=== PATIENT | male | born 1950 | race American Indian/Alaskan Native ===

== ENCOUNTER 2017-11-18 12:37 | Outpatient (REF) | payer MEDICARE, SELFPAY ==
[2017-11-18 19:49] LABS: Microalb ug/mg Crea 19.6 ug/mg Cr
== END 2017-11-18 12:38 ==
LOC: NCHCN 12:37
PROVIDERS: PCP Family Medicine; Visit Provider Family Medicine
DX: E11.9 Type 2 diabetes mellitus without complications (principal)
CPT/HCPCS: 82043; 82570

== ENCOUNTER 2017-11-21 15:29 | Emergency (ER) | payer MEDICARE, SELFPAY ==
[2017-11-21 15:35] VITALS: BP 130/94; PULSE 89; RESP 16; TEMP 37.1; O2SAT 97
--- NOTE | 2017-11-21 16:18 | ED.GENADUL_ITS ---
Disposition Clinical Impression: Diarrhea, Dehydration, Headache, Hyperglycemia Disposition: HOME Condition: Stable Instructions: Dehydration (ED), Acute Diarrhea (ED), Diabetic Hyperglycemia (ED ), General Headache (ED) Additional Instructions: Drink plenty of fluids and get plenty of rest. Take your regular medications as directed. Check your sugar regularly. Follow-up with your primary care doctor within the next 3 days. Return to the emergency department with any worsening or new concerning symptoms. Medical Decision Making - Lab Data Laboratory Tests 11/21/17 11/21/17 11/21/17 16:40 16:40 16:53 WBC 7.51 RBC 5.35 Hgb 13.7 Hct 42.3 MCV 79.1 L MCH 25.6 L MCHC 32.4 RDW 15.1 H Plt Count 221 MPV 9.3 Immature Gran % 0.3 Neutrophils % 59.5 Lymphocytes % 29.0 Monocytes % 6.0 Eosinophils % 4.7 Basophils % 0.5 Absolute Neutrophils 4.47 Absolute Lymphocytes 2.18 Absolute Monocytes 0.45 Absolute Eosinophils 0.35 Absolute Basophils 0.04 Sodium 138 Potassium 4.1 Chloride 100 Carbon Dioxide 22.4 Anion Gap 15.6 H BUN 17 Creatinine 1.22 Estimated GFR/1.73 m2 59.07 Glucose 265 H Calcium 9.1 Total Bilirubin 0.7 AST 51 H ALT 58 Alkaline Phosphatase 80 Total Protein 8.2 Albumin 4.5 Urine Color Yellow Urine Clarity Clear Urine pH 5.5 Ur Specific [place] > 1.030 H Urine Protein 30 H Urine Ketones 15 H Urine Blood Negative Urine Nitrite Negative Urine Bilirubin Small H Urine Urobilinogen 0.2 Ur Leukocyte Esterase Negative Urine RBC Negative Urine WBC 3-5 Ur Epithelial Cells Rare Urine Crystals Negative Urine Bacteria Negative Urine Casts 5-10 hyaline Urine Mucus Heavy Ur Culture Indicated? No Urine Glucose Negative 11/21/17 19:06 WBC RBC Hgb Hct MCV MCH MCHC RDW Plt Count MPV Immature Gran % Neutrophils % Lymphocytes % Monocytes % Eosinophils % Basophils % Absolute Neutrophils Absolute Lymphocytes Absolute Monocytes Absolute Eosinophils Absolute Basophils Sodium 137 Potassium 4.5 Chloride 101 Carbon Dioxide 22.1 Anion Gap 13.9 H BUN 17 Creatinine 1.04 Estimated GFR/1.73 m2 >= 60.00 Glucose 247 H Calcium 8.9 Total Bilirubin AST ALT Alkaline Phosphatase Total Protein Albumin Urine Color Urine Clarity Urine pH Ur Specific [place] Urine Protein Urine Ketones Urine Blood Urine Nitrite Urine Bilirubin Urine Urobilinogen Ur Leukocyte Esterase Urine RBC Urine WBC Ur Epithelial Cells Urine Crystals Urine Bacteria Urine Casts Urine Mucus Ur Culture Indicated? Urine Glucose - EKG Data -: EKG Interpreted by Me 11/21/17 1633: 81bpm. Sinus. No acute ST elevation or depression. - Medical Decision Making 67-year-old male with history of diabetes, hypertension and hyperlipidemia with atrial fibrillation on Xarelto who presents for diarrhea and headache for the past 4 days. Multiple episodes of diarrhea daily. Headache was worse last night and better currently. Denies fever, nausea, vomiting, chest pain, shortness of breath, abdominal pain or urinary symptoms. Vitals within normal limits. No acute findings on exam. Abdomen soft and nontender. No focal deficits. Patient initially stated he wanted to leave and did not want any workup. He states he is starting to feel clammy would rather go home. The risks of and disability due to a serious pathology were explained and patient fully understand and demonstrated capacity to make decisions. He is refusing a CT of his head. I explained the risks of an acute bleed and he understands and is still refusing He initially refused any lab work but is now agreeable. I explained that as he chronically has headaches but it is more intense than usual, may be associated with dehydration due to his diarrhea. Will place an IV , small bolus IV fluids, labs, urinalysis and EKG. 1729 -- Labs reviewed. Glucose 265. Anion gap 15.6. Urinalysis with specific gravity > 1.030 and 15 ketones. There are 3-5 WBCs but no acute indication of infection patient denies any urinary symptoms. Lab work appears consistent with dehydration. Patient received 250 bolus IV fluids and feels better and states his headache is improved. Regular glucose readings between 150 and 190 so he states is high for him. Bicarb 22. Will give patient another 250 bolus of fluids and recheck a BMP. 2009 -- repeat BMP reviewed and glucose 247 and anion gap improving at 13.9. Patient states he feels good to go home. Patient again was offered a CAT scan of his head and he is declining. He appears more comfortable. He states his headache is much improved. Patient was instructed to increase his fluid intake , take his regular medications as directed and recheck his sugar. Patient was instructed to follow-up with his primary care doctor within the next week and to return here if worse. History of Present Illness - General Chief complaint: Nausea/Vomit/Diar Stated complaint: N/V/D Time Seen by Provider: 11/21/17 15:30 Source: patient Mode of arrival: ambulatory Limitations: no limitations - History of Present Illness Initial comments: Patient is a 67-year-old male with a history of diabetes, hypertension, hyperlipidemia, atrial fibrillation on Xarelto who presents for diarrhea and headache for the past few days. Patient states he has had 4 episodes of diarrhea daily which have mainly been watery and brown but sometimes loose. Patient states his headache is on the top of his head and radiates down to his bilateral neck but worse on the right side. States his headache is worse when laying down. Took tramadol and Tylenol without relief. Patient does admit to frequently having headaches 1-2 times weekly but states this is more intense than usual. He denies any recent antibiotics, travel, vomiting, abdominal pain , fever, chest pain or shortness of breath. States his headache was worse at 9/ 10 last night but is currently 4/10. - Related Data Alprazolam [Alprazolam ER] 3 mg PO DAILY PRN 05/16/13 Glipizide [Glipizide Xl] 5 mg PO DAILY 05/16/13 Lamotrigine 200 mg PO DAILY 05/16/13 MetFORMIN [Glucophage] 1,000 mg PO BID@0800,1700 05/16/13 Multivitamin [Men's Multi-Vitamin] 1 each PO DAILY 05/16/13 Nitroglycerin [Nitrostat] 0.4 mg SL PRN PRN 05/16/13 Zolpidem [Ambien] 10 mg PO HS PRN PRN 05/16/13 Lisinopril [Prinivil] 10 mg PO QAM 12/06/13 Pantoprazole Sodium [Protonix] 40 mg PO DAILY 12/06/13 Atorvastatin Calcium 80 mg PO DAILY tab-cap 11/24/16 Cholecalciferol (Vitamin D3) [Vitamin D3] 2,000 unit PO DAILY 11/24/16 Magnesium Oxide [Magnesium] 400 mg PO BID 11/24/16 Acetaminophen [Tylenol] 500 mg PO PRN PRN 12/18/16 Liraglutide [Victoza 3-Ruddy] 1.2 mg SQ DAILY 01/19/17 Rivaroxaban [Xarelto] 20 mg PO DAILY 06/14/17 Aspirin 81 mg PO DAILY tab-cap 07/23/17 Tramadol HCl 50 mg PO PRN PRN 07/24/17 Metoprolol CR [Toprol Xl] 100 mg PO DAILY #90 tab-cap 08/11/17 Metoprolol Succinate 25 mg PO DAILY #90 tab-cap 08/11/17 Vilazodone HCl [Viibryd] 10 mg PO 11/21/17 Allergies Allergy/AdvReac Type Severity Reaction Status Date / Time latex AdvReac Intermediate trouble Unverified 11/21/17 15:49 breathing/moving Review of Systems Constitutional: denies: chills, fever Eyes: denies: eye pain ENT: denies: ear pain, dental pain Respiratory: denies: cough Cardiovascular: denies: chest pain, dyspnea on exertion Gastrointestinal: diarrhea. denies: abdominal pain, nausea, vomiting Genitourinary: denies: urgency, dysuria, frequency Musculoskeletal: denies: back pain Skin: denies: rash, lesions Neurological: headache. denies: weakness, numbness Past Medical History - Past Medical History Medical history: CAD, diabetes, hypertension Surgical history: cholecystectomy, pacemaker/AICD (Placement 2 years ago [employer] at [facility], 3 cardiac stents, kidney stone resection) - Social History Smoking status: current everyday smoker Alcohol use: occasionally Drug use: none General Exam - General Limitations: no limitations General appearance: alert, in no apparent distress - Head Head exam: Present: atraumatic, normocephalic - Eye Eye exam: Present: PERRL, EOMI - ENT ENT exam: Present: normal orophraynx, mucous membranes moist, TM's normal bilaterally - Neck Neck exam: Present: normal inspection - Respiratory Respiratory exam: Present: normal lung sounds bilaterally. Absent: respiratory distress, wheezes, rales, rhonchi, stridor - Cardiovascular Cardiovascular Exam: Present: regular rate, normal rhythm. Absent: bradycardia , tachycardia - GI/Abdominal GI/Abdominal exam: Present: soft, normal bowel sounds. Absent: distended, tenderness, guarding, rebound, rigid - Neurological Exam Neurological exam: Present: alert, oriented X3 - Psychiatric Psychiatric exam: Present: normal affect - Skin Skin exam: Present: warm, dry, intact Course Vital Signs - 24 hr 11/21/17 15:35 Temperature 98.8 F Pulse 89 Respiratory 16 Rate Blood Pressure 130/94 Pulse Oximetry 97
[2017-11-21] MEDS: Normal Saline 250 ML IV ×2 (16:43→17:59)
[2017-11-21 16:47] LABS: Abs Immature Grans 0.02 k/cumm (0.0-0.09); Absolute Basophil Count 0.04 k/cumm (0.0-0.2); Absolute Eosinophil Count 0.35 k/cumm (0.0-0.7); Absolute Lymphocyte Count 2.18 k/cumm (1.2-3.4); Absolute Monocyte Count 0.45 k/cumm (0.11-0.7); Absolute Neutrophil Count 4.47 k/cumm (1.2-6.7); Basophils % 0.5; Eosinophils % 4.7; HCT 42.3 % (40.0-50.0); HGB 13.7 g/dL (13.5-17.5); Immature Grans % 0.3; Mean Corp. HGB Concentration 32.4 g/dL (32.0-36.0); Mean Corpuscular Hemoglobin 25.6 pg (27.0-33.0); Mean Corpuscular Volume 79.1 fL (80-95); Mean Platelet Volume 9.3 fL (8.0-11.0); Neutrophils % 59.5; Platelet Count 221 x1000/uL (130-400); RBC 5.35 m/cumm (4.50-6.00); RBC Distribution Width 15.1 % (11.8-14.1); White Blood Cell Count 7.51 k/cumm (4.4-10.8)
[2017-11-21 17:01] LABS: ALT 58 U/L (12-78); AST 51 U/L (15-37); Albumin 4.5 g/dL (3.4-5.0); Alkaline Phosphatase 80 U/L (46-116); Anion Gap 15.6 mmol/L (3-11); BUN 17 mg/dL (7-18); Bilirubin, Total 0.7 mg/dL (0.2-1.0); CO2 22.4 mmol/L (21.0-32.0); CREATININE 1.22 mg/dL (0.70-1.30); Calcium 9.1 mg/dL (8.5-10.1); Chloride 100 mmol/L (98-107); Estimated GFR 59.07 (mL/min/1.73m2); Glucose 265 mg/dL (70-100); Potassium 4.1 mmol/L (3.5-5.1); Sodium 138 mmol/L (136-145); Total Protein 8.2 g/dL (6.4-8.2)
[2017-11-21 17:07] LABS: Clarity Clear; Glucose Negative (Negative); Leukocyte Esterase Negative (Negative); Nitrite Negative (Negative); Specific Gravity > 1.030 (1.005-1.025); pH 5.5 (5-8)
[2017-11-21 17:08] LABS: Bacteria Negative HPF (Negative); Bilirubin Small (Negative); Blood Negative (Negative); C & S Indicated? No; Casts 5-10 Hyaline LPF (Negative); Crystals Negative HPF (Negative); Epithelial Cells Rare HPF (Negative); Ketones 15 mg/dL (Negative); Mucus Heavy (Negative); RBC Negative (0-2); Urobilinogen 0.2 EU/dL (Up TO 0.2)
[2017-11-21 18:00] VITALS: BP 117/66; PULSE 81; RESP 16; O2SAT 96
[2017-11-21 19:27] LABS: Anion Gap 13.9 mmol/L (3-11); BUN 17 mg/dL (7-18); CO2 22.1 mmol/L (21.0-32.0); CREATININE 1.04 mg/dL (0.70-1.30); Calcium 8.9 mg/dL (8.5-10.1); Chloride 101 mmol/L (98-107); Glucose 247 mg/dL (70-100); Potassium 4.5 mmol/L (3.5-5.1); Sodium 137 mmol/L (136-145)
[2017-11-21 20:39] VITALS: BP 126/85; PULSE 77; RESP 16; O2SAT 97
== END 2017-11-21 20:48 | disposition home or self-care (01) ==
PROVIDERS: Emergency Provider Physician Assistant; PCP Family Medicine
DX: R51 Headache (principal); R19.7 Diarrhea, unspecified; E86.0 Dehydration; R73.9 Hyperglycemia, unspecified; I10 Essential (primary) hypertension; E11.9 Type 2 diabetes mellitus without complications; Z79.84 Long term (current) use of oral hypoglycemic drugs
CPT/HCPCS: 93005; 96360; 99284; 99285; 36415; 80048; 80053; 81003; 81015; 85025; 93010

== ENCOUNTER 2017-12-31 00:39 | Outpatient (CLI) | payer MEDICARE, SELFPAY ==
--- NOTE | 2017-12-31 07:09 | DI.CT_ITS ---
SYMPTOMS/DIAGNOSIS: RIGHT DISTAL RADIUS FX WITH CONTINUED TRIANGULAR FIBROCARTILAGE COMPLEX PAIN, S69.81XD, ? TRIANGULAR FIBROCARTILAGE COMPLEX TEAR CT SCAN OF THE WRIST: CT arthrography of the wrist was performed. Multiple contiguous axial images were obtained. Sagittal and coronal images were identified on the Siemens workstation. There is an intrasubstance tear of the triangular fibrocartilage. The tear is in a central location and does appear to be large. 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 There does not appear to be an acute fracture or dislocation. The previously noted distal radial fracture appears to be well healed. The soft tissues are unremarkable. No focal fluid collection or soft tissue mass is appreciated. The muscles appear grossly unremarkable. IMPRESSION: 1. Triangular fibrocartilage tear following apparent distal radial fracture, suggesting a Berman class IA designation. 2. Healed distal right radial fracture.
--- NOTE | 2017-12-31 14:48 | DI.RAD_ITS ---
SYMPTOMS/DIAGNOSIS: RIGHT WRIST INJECTION FOR CT ARTHROGRAM, S69.81XD, RIGHT WRIST INJURY, PAIN RIGHT WRIST ARTHROGRAPHY: Fluoroscopy Time: 3 sec Fluoroscopy was utilized by Dr. Villegas during the performance of a right wrist arthrogram. Please refer to the procedure report for complete details.
[2017-12-31] MEDS: Omnipaque 300 MG/ML 10 ML BTL IJ (14:59)
--- NOTE | 2017-12-31 20:21 | W.PROCNOTE ---
Date of service: 12/31/17 Time of Service: 14:21 Procedure Note Date of procedure: 12/31/17 Procedure: Right Wrist Injection with Fluoroscopic Guidance Surgeon/Proceduralist/Physician: Homero Villegas Procedure Diagnosis: Suspected Right TFCC Tear Procedure Indications: Dewayne is a 67-year-old who has persistent right wrist pain after distal radius fracture. There is concern for TFCC injury. Given his pacemaker defibrillator he is not a candidate for MRI. Therefore, suggested performing a CT arthrogram of the wrist. Procedure Description: The right wrist was identified as fluoroscopy for targeting I anesthetized the skin overlying the dorsal radial aspect of the wrist with 1% lidocaine. Then it entered the radiocarpal joint between the radius and the scaphoid using a dorsal approach. Small amount of Omnipaque and bupivacaine were injected to confirm the correct positioning. A total of 7 cc of a one-to-one mixture of 0.5% ropivacaine and Omnipaque was then injected. This filled out the midcarpal, radiocarpal, and TFCC joints. Based on the arthrogram there was a TFCC tear and likely intercarpal ligament tear. He tolerated procedure well. Band-Aid was applied. He was then taken to CT scan.
== END 2017-12-31 00:59 ==
PROVIDERS: PCP Family Medicine; Visit Provider Student in an Organized Health Care Education/Training Program
DX: S63.591A Other specified sprain of right wrist, initial encounter (principal); M25.531 Pain in right wrist; S52.502D Unspecified fracture of the lower end of left radius, subsequent encounter for closed fracture with routine healing
CPT/HCPCS: 20605; 77002; 73200

== ENCOUNTER → 2018-02-04 13:30 | Outpatient (BNVA) | payer MEDICARE, SELFPAY | PROVIDERS: PCP Family Medicine; Visit Provider Internal Medicine Cardiovascular Disease | DX: I25.10 Atherosclerotic heart disease of native coronary artery without angina pectoris (principal); Z95.818 Presence of other cardiac implants and grafts; I25.5 Ischemic cardiomyopathy; I47.2 Ventricular tachycardia; Z95.0 Presence of cardiac pacemaker; I48.0 Paroxysmal atrial fibrillation; I10 Essential (primary) hypertension; E78.5 Hyperlipidemia, unspecified; E11.9 Type 2 diabetes mellitus without complications; Z79.84 Long term (current) use of oral hypoglycemic drugs | CPT/HCPCS: 99214 ==

== ENCOUNTER → 2018-04-08 14:04 | Outpatient (BNVA) | payer MEDICARE, SELFPAY | PROVIDERS: PCP Family Medicine; Visit Provider Nurse Practitioner Primary Care | DX: I25.10 Atherosclerotic heart disease of native coronary artery without angina pectoris; I48.0 Paroxysmal atrial fibrillation; I25.5 Ischemic cardiomyopathy; I10 Essential (primary) hypertension; E11.9 Type 2 diabetes mellitus without complications; Z79.84 Long term (current) use of oral hypoglycemic drugs; Z45.02 Encounter for adjustment and management of automatic implantable cardiac defibrillator | CPT/HCPCS: 93283; 99214 ==

== ENCOUNTER 2018-04-22 09:11 | Emergency (ER) | payer MEDICARE, SELFPAY ==
[2018-04-22 09:22] VITALS: BP 134/80; PULSE 81; RESP 16; TEMP 37; O2SAT 98
--- NOTE | 2018-04-22 09:31 | DI.CT_ITS ---
SYMPTOMS/DIAGNOSIS: FALL, LOSS OF CONSCIOUSNESS, RT CHEST AND NECK PAIN, ON XARELTO CT BRAIN: Noncontrast examination. Comparison 09/02/16. Age appropriate cerebral atrophy is present. No intracranial hemorrhage or skull fracture is seen. The ventricles are intact. No midline shift or mass effect is identified. The visualized paranasal sinuses are clear. The mastoid air cells are well pneumatized. No evidence of a calvarial fracture is present. IMPRESSION: No acute intracranial process. CT SCAN OF THE CERVICAL SPINE: Multiple contiguous axial images of the cervical spine were obtained. Sagittal and coronal reformatted images were evaluated on the Siemens workstation. There is straightening of the normal cervical lordosis. No acute fractures or subluxations are seen. Moderate degenerative changes are seen in the cervical spine. There is no significant prevertebral soft tissue swelling. IMPRESSION: No acute fractures or subluxations of the cervical spine. CT SCAN OF THE ABDOMEN AND PELVIS: The liver, spleen, pancreas, and adrenal glands are unremarkable. The patient is status post cholecystectomy. No biliary ductal dilatation is seen. The kidneys are unremarkable except for left renal cysts and a nonobstructing stone in the lower pole of the left kidney. The urinary bladder and reproductive organs are unremarkable. The abdominal aorta is of normal caliber. No significant abdominal or pelvic adenopathy, ascites or pneumoperitoneum is present. There is diverticulosis of the colon but no evidence of acute diverticulitis. There is a normal appendix. The bowel is otherwise unremarkable. No acute fracture is identified. IMPRESSION: No acute abdominal or pelvic injury is seen. CT SCAN OF THE CHEST: The thoracic aorta is of normal caliber. The heart size is mildly enlarged. No significant pericardial effusion is seen. Pacing wires are in place. No significant thoracic adenopathy is identified. No pleural effusion or pneumothorax is identified. Dependent atelectatic changes are seen in the lungs. No pulmonary infiltrates are seen. The tracheobronchial tree is unremarkable. No fracture is identified. IMPRESSION: No acute thoracic injury. The findings were discussed with the emergency department on the date of the examination.
--- NOTE | 2018-04-22 09:36 | ED.GENADUL_ITS ---
Discharge Plan Disposition Patient Disposition: HOME Condition: Improving Discharge Details Chief Complaint: Nk/Back Pain Clinical Impression: Chest wall contusion Primary Care Provider: Dewayne Carrington ED Provider: Jules Singleton Home Meds and New Rx's Prescriptions: Continued vortioxetine 10 mg tablet 10 mg PO DAILY RF: 0 Atorvastatin Calcium 20 MG tablet 80 mg PO DAILY RF: 0 magnesium oxide 400 MG tablet 400 mg PO BID RF: 0 cholecalciferol (vitamin D3) [Vitamin D3] 2,000 UNIT capsule 2,000 unit PO DAILY RF: 0 aspirin 81 MG tablet,chewable 81 mg PO DAILY RF: 0 metoprolol succinate 100 MG tablet extended release 24 hr 100 mg PO DAILY Qty: 90 RF: 0 Metoprolol Succinate 25 MG TAB.ER.24H 25 mg PO DAILY Qty: 90 RF: 0 multivitamin [Men's Multi-Vitamin] 1 EACH tablet 1 ea PO DAILY RF: 0 glipizide 5 MG tablet extended release 24hr 5 mg PO DAILY RF: 0 metformin [Glucophage] 1,000 MG tablet 1,000 mg PO BID@0800,1700 RF: 0 nitroglycerin [Nitrostat] 0.4 MG tablet, sublingual 0.4 mg Sublingual PRN PRNRF: 0 zolpidem 10 MG tablet 10 mg PO HS PRN PRNRF: 0 lamotrigine 100 MG tablet 200 mg PO DAILY RF: 0 alprazolam 3 MG tablet extended release 24 hr 3 mg PO DAILY PRNRF: 0 pantoprazole [Protonix] 20 MG tablet,delayed release (DR/EC) 40 mg PO DAILY RF: 0 lisinopril 10 MG tablet 10 mg PO QAM RF: 0 acetaminophen [Mapap Extra Strength] 500 MG tablet 500 mg PO PRN PRNRF: 0 Victoza 3-Ruddy 0.6 MG/0.1 ML pen injector 1.2 mg SQ DAILY RF: 0 Xarelto 20 MG tablet 20 mg PO DAILY RF: 0 tramadol 50 MG tablet 50 mg PO PRN PRNRF: 0 Discharge Instructions Instructions: Contusion in Adults (ED) Additional Instructions: Remove the Lidoderm patch in 12 hours. Return for any acute concerns. Home to rest. Tylenol as needed for discomfort. Continue all regular medications Medical Decision Making 67-year-old male with history of paroxysmal atrial fibrillation and ischemic cardiomyopathy which is anticoagulated on Xarelto. He slipped and fell on the ice 3 days ago with a positive loss of consciousness and now with right neck, chest and back pain. His exam reveals primarily tenderness in the right posterior thoracic cage. Vital signs are normal. Nonetheless, he is at high risk for both bony and visceral injury given his anticoagulation. IV access was established, screening labs obtained, patient referred for CT images. No evidence of visceral or bony injury. Consistent with posterior chest wall contusion. Discussed with him home management. He is given a Lidoderm patch for today. He will return for any acute concerns HPI General Mode of arrival: ambulatory . Date/Time Provider Initiated Documentation: 04/22/18 09:12 . Limitations to Documentation: no limitations . Information obtained by: patient . History of Present Illness 67 year old M presents to the emergency department with the chief complaint of Fall, neck, back, chest pain, described as moderate, Quality is described as aching, and is localized to the chest. Patient neck. Patient started experiencing this day(s) and it has been constant. Rest improves symptom(s), Movement worsens symptoms . Patient notes no other symptoms.; denies fever/chills, nausea/vomiting and shortness of breath. Patient did receive the following treatments prior to arrival, none HPI Narrative: Slip and fall on the ice 3 days ago. Positive loss of consciousness. Now with right neck, back, chest pain. Denies headache, weakness, numbness or tingling. Denies extremity injury. Related Data Home Medications Medication Instructions Recorded Confirmed alprazolam 3 mg PO DAILY PRN 05/16/13 04/22/18 glipizide 5 mg PO DAILY 05/16/13 04/22/18 lamotrigine 200 mg PO DAILY 05/16/13 04/22/18 metformin [Glucophage] 1,000 mg PO BID@0800,1700 05/16/13 04/22/18 multivitamin [Men's Multi-Vitamin] 1 ea PO DAILY 05/16/13 04/22/18 nitroglycerin [Nitrostat] 0.4 mg SUBLINGUAL PRN PRN 05/16/13 04/22/18 zolpidem 10 mg PO HS PRN PRN 05/16/13 04/22/18 lisinopril 10 mg PO QAM 12/06/13 04/22/18 pantoprazole [Protonix] 40 mg PO DAILY 12/06/13 04/22/18 Atorvastatin Calcium 80 mg PO DAILY tab-cap 11/24/16 04/22/18 cholecalciferol (vitamin D3) 2,000 unit PO DAILY 11/24/16 04/22/18 [Vitamin D3] magnesium oxide 400 mg PO BID 11/24/16 04/22/18 acetaminophen [Mapap Extra 500 mg PO PRN PRN 12/18/16 04/22/18 Strength] Victoza 3-Ruddy 1.2 mg SQ DAILY 01/19/17 04/22/18 Xarelto 20 mg PO DAILY 06/14/17 04/22/18 aspirin 81 mg PO DAILY tab-cap 07/23/17 04/22/18 tramadol 50 mg PO PRN PRN 07/24/17 04/22/18 metoprolol succinate 100 mg PO DAILY #90 tab-cap 08/11/17 04/22/18 vortioxetine 10 mg tablet 10 mg PO DAILY 04/08/18 04/08/18 Previous Rx's Medication Instructions Recorded metoprolol succinate 100 mg PO DAILY #90 tab-cap 08/11/17 Allergies Allergy/AdvReac Type Severity Reaction Status Date / Time latex AdvReac Intermediate trouble Unverified 04/22/18 09:25 breathing/moving General Stated Complaint: Nk/Back Pain SHAILESH: 4 Review of Systems Review of Systems 8 systems reviewed and otherwise negative [facility] Social History Smoking/Tobacco Use Status: Current every day Exam Narrative Exam Narrative: GEN: awake, alert, oriented 3. Pleasant, well groomed, interactive. HEAD: Normocephalic, atraumatic ENT: Mucous membranes moist, oropharynx unremarkable, External ear exam unremarkable EYES: PERRL, EOMI NECK: Full ROM, no ANDI, no menigismus. Minimal paraspinous tenderness. No step-off or deformity CHEST/RESP: Right posterior thoracic tenderness, no crepitus, clear to auscultation bilateral, no wheeze/rhonchi/rales CARDIOVASCULAR: RRR, no murmur, rub marjorie. 2+ Rad pulse bilateral ABDOMEN: Soft, nontender, no mass. +Bowel sounds EXT: Full ROM, no edema, no rash Neuro: Grossly normal neurologic exam, conversant, interactive. Psych: Speech fluent, thoughts congruent, affect normal Course Vital Signs Temperature 37 C 04/22/18 09:22 Pulse 81 04/22/18 09:22 Respiratory Rate 16 04/22/18 09:22 Blood Pressure 134/80 04/22/18 09:22 Pulse Oximetry 98 04/22/18 09:22 Temperature 37 C 04/22/18 09:22 Temperature Source Skin 04/22/18 09:22 Pulse 81 04/22/18 09:22 Respiratory Rate 16 04/22/18 09:22 Respiratory Effort Non-Labored 04/22/18 09:22 Blood Pressure 134/80 04/22/18 09:22 Blood Pressure Position Sitting 04/22/18 09:22 Pulse Oximetry 98 04/22/18 09:22 Oxygen Delivery Method Room Air 04/22/18 09:22 Oxygen Flow Rate 0 04/22/18 09:22 Pain Level 7 04/22/18 09:22
[2018-04-22] MEDS: Normal Saline 1,000 ML 150 ML IV (09:50)
[2018-04-22 10:03] LABS: Abs Immature Grans 0.02 k/cumm (0.0-0.09); Absolute Basophil Count 0.04 k/cumm (0.0-0.2); Absolute Eosinophil Count 0.44 k/cumm (0.0-0.7); Absolute Lymphocyte Count 2.76 k/cumm (1.2-3.4); Absolute Monocyte Count 0.45 k/cumm (0.11-0.7); Absolute Neutrophil Count 3.72 k/cumm (1.2-6.7); Basophils % 0.5; Eosinophils % 5.9; HCT 43.3 % (40.0-50.0); HGB 13.8 g/dL (13.5-17.5); Immature Grans % 0.3; Lymphocytes % 37.1; Mean Corp. HGB Concentration 31.9 g/dL (32.0-36.0); Mean Corpuscular Hemoglobin 25.1 pg (27.0-33.0); Mean Corpuscular Volume 78.9 fL (80-95); Mean Platelet Volume 9.1 fL (8.0-11.0); Monocytes % 6.1; Neutrophils % 50.1; Platelet Count 238 x1000/uL (130-400); RBC 5.49 m/cumm (4.50-6.00); RBC Distribution Width 15.5 % (11.8-14.1); White Blood Cell Count 7.43 k/cumm (4.4-10.8)
[2018-04-22 10:14] LABS: INR 1.1 (1.0-3.5); Prothrombin Time 10.5 sec (9.3-11.0)
[2018-04-22 10:19] LABS: ALT 51 U/L (12-78); AST 37 U/L (15-37); Albumin 4.4 g/dL (3.4-5.0); Alkaline Phosphatase 76 U/L (46-116); Anion Gap 12.8 mmol/L (3-11); BUN 16 mg/dL (7-18); Bilirubin, Total 0.6 mg/dL (0.2-1.0); CO2 27.2 mmol/L (21.0-32.0); CREATININE 1.16 mg/dL (0.70-1.30); Calcium 9.5 mg/dL (8.5-10.1); Chloride 101 mmol/L (98-107); Glucose 171 mg/dL (70-100); Potassium 3.8 mmol/L (3.5-5.1); Sodium 141 mmol/L (136-145); Total Protein 8.4 g/dL (6.4-8.2)
[2018-04-22] MEDS: Omnipaque 350 MG/ML 100 ML BTL IJ (10:59)
[2018-04-22 11:25] VITALS: BP 131/85; PULSE 71; RESP 16; TEMP 37; O2SAT 96
[2018-04-22] MEDS: Lidocaine 5% Patch 1 PATCH TP (11:30)
== END 2018-04-22 11:29 | disposition home or self-care (01) ==
PROVIDERS: Emergency Provider Emergency Medicine; PCP Family Medicine
DX: S20.221A Contusion of right back wall of thorax, initial encounter (principal); W00.0XXA Fall on same level due to ice and snow, initial encounter; R40.20 Unspecified coma; Z79.01 Long term (current) use of anticoagulants
CPT/HCPCS: 36415; 74177; 80053; 96360; 96361; 99285; 70450; 71260; 72125; 85025; 85610; 99284; J3490

== ENCOUNTER → 2018-08-06 12:37 | Outpatient (BNVA) | payer MEDICARE, SELFPAY | PROVIDERS: PCP Family Medicine; Visit Provider Internal Medicine Cardiovascular Disease | DX: I25.5 Ischemic cardiomyopathy (principal); I10 Essential (primary) hypertension; I25.10 Atherosclerotic heart disease of native coronary artery without angina pectoris; I47.1 Supraventricular tachycardia; I35.1 Nonrheumatic aortic (valve) insufficiency; E78.5 Hyperlipidemia, unspecified; G47.30 Sleep apnea, unspecified; I48.0 Paroxysmal atrial fibrillation; E11.9 Type 2 diabetes mellitus without complications; Z95.810 Presence of automatic (implantable) cardiac defibrillator | CPT/HCPCS: 99214 ==

== ENCOUNTER 2018-08-11 00:22 | Outpatient (CLI) | payer MEDICARE, SELFPAY ==
--- NOTE | 2018-08-11 06:47 | MERGEMPI_ITS ---
*[facility]* *[facility]* [address] [place] [address] Myocardial Perfusion Imaging - SPECT Regadenoson Date of study: 08/11/2018 *PATIENT PRESENTATION* Height: 180.3cm (71in) Blood Pressure: Weight: 92.3kg (203lb) BSA: 2.17m^2 Referring physician: Harjti Montanez Ordering physician: Chidi Paul Impressions: - Study suggests small myocardial ischemia, in the territory of the left anterior descending coronary artery. - Low risk of cardiac events. Summary: 1. Myocardial perfusion imaging: There is a small sized, moderately intense, fully reversible defect involving the apical septal wall(s). This suggests small and ischemia in the distribution of the left anterior descending coronary artery. 2. The calculated left ventricular ejection fraction after stress: 49%. LV global systolic function is mildly reduced. Diffuse left ventricular regional motion abnormalities. 3. Stress ECG conclusions: The stress ECG is negative. 4. Baseline ECG: Normal sinus rhythm with 1degrees AV block. Nonspecific ST changes. 5. Imaging information: gated. Image quality reduced due to diaphragmatic attenuation. Attenuation correction used. Recommendations: Medical management is recommended. Indication: R07.9, Appropriate Use Criteria: A (Appropriate). History: REASON FOR TESTING: PATIENT TESTING TODAY FOR FURTHER RISK STRATIFICATION. HE ALSO REPORTS SOME DULL CHEST PAIN/TIGHTNESS THAT IS ASSOCIATED WITH STRESS AND ANXIETY. HE STATES SYMPTOMS LAST LONG THE STRESS IS PRESENT. PATIENT DENIES CHEST PAIN UPON ARRIVAL TO TESTING TODAY. SIGNIFICANT PAST MEDICAL HISTORY: ISCHEMIC CARDIOMYOPATHY, AORTIC REGURGITATION, SLEEP APNEA, PAROXYSMAL ATRIAL FIBRILLATION, ICD IMPLANTED IN 2013. SMOKING STATUS: QUIT IN 2013. 35 YEAR 1 PPD HISTORY. CURRENTLY VAPES. EXERCISE ROUTINE: DAILY ADL'S. WANTS TO GET MORE ACTIVE THIS SUMMER. Risk factors: Hypertension. Dyslipidemia. Cholesterol: 96mg/dl. HDL: 42mg/dl. LDL: 38mg/dl. Triglycerides: 170mg/dl. ALLERGIES: LATEX. MEDICATIONS: ALPRAZOLAM 3 MG PRN, GLIPIZIDE 5 MG DAILY, LAMOTRIGINE 200 MG DAILY, METFORMIN 1000 MG BID, MULTIVITAMIN DAILY, NITROSTAT 0.4 MG SL PRN, ZOLPIDEM 10 MG HS PRN, LISINOPRIL 10 MG DAILY, PROTONIX 40 MG DAILY, ATORVASTATIN 80 MG DAILY, VITAMIN D 2000 UNITS DAILY, MAGNESIUM OXIDE 400 MG BID, ACETAMINOPHEN 500 MG PRN, VICTOZA 1.2 MG SQ DAILY, XARELTO 20 MG DAILY, ASPIRIN 81 MG DAILY, TRAMADOL 50 MG PRN, METOPROLOL SUCCINATE 100 MG DAILY, VORTIOXETINE 10 MG DAILY. Imaging Technique: Protocol: Stitchon. Acquisition: Gated SPECT; 1 day - rest/stress. The patient was imaged in the supine position. Attenuation correction used. Isotope administration: - Rest. Tc[99m]-sestamibi. Dose: 10.2mCi. Injection time: 09:32 AM. Injection to stress time: 00:45. - Stress. Tc[99m]-sestamibi. Dose: 31.3mCi. Injection time: 11:20 AM. 1-2 min before end of exercise Baseline ECG: FIRST DEGREE HEART BLOCK--[place]=0.26. HR 61 BPM. Normal sinus rhythm with 1degrees AV block. Nonspecific ST changes. Stress protocol: +--------+--+ + + !Stage !HR!BP (mmHg) !Comments ! +--------+--+ + + !Baseline!61!126/62 (83)! ! +--------+--+ + + !1 min !75!126/60 (82)!Inject Regadenoson.! +--------+--+ + + !3 min !73!120/60 (80)! ! +--------+--+ + + !6 min !69!120/64 (83)! ! +--------+--+ + + !1 min !--! !Inject Regadenoson.! +--------+--+ + + * Stress results: STRESS TEST ENDED IN 7 MINUTES 12 SECONDS. NORMAL HEART RATE AND BLOOD PRESSURE RESPONSE TO LEXISCAN INJECTION. RARE PVC. NO ANGINA. NO SIGNIFICANT ST SEGMENT CHANGES. The rate-pressure product for the peak heart rate and blood pressure was 9450mm Hg/min. Stress ECG: The stress ECG is negative. Myocardial perfusion: Imaging information: gated. Image quality reduced due to diaphragmatic attenuation. Left ventricular size is normal. There is a small sized, moderately intense, fully reversible defect involving the apical septal wall(s). This suggests small and ischemia in the distribution of the left anterior descending coronary artery. Ventricular Function (Wall Motion): The calculated left ventricular ejection fraction after stress: 49%. LV global systolic function is mildly reduced. Diffuse left ventricular regional motion abnormalities. Study data: Harjit Montanez MD supervised and was readily available during the procedure. This study was interpreted by [facility]. Study status: Routine. Consent: The risks, benefits, and alternatives to the procedure were explained to the patient and informed consent was obtained. Procedure: Initial setup. A baseline ECG was recorded. Surface ECG leads and manual cuff blood pressure measurements were monitored. Heart sounds: Normal. Lung sounds: Normal. Regadenoson stress test. Stress testing was performed, with regadenoson by intravenous bolus, for a total dose of 0.4mgover 10.00sec, followed by a 5ml saline flush. The infusion was terminated due to per protocol. Study completion: All catheters inserted during the procedure were removed. The patient tolerated the procedure well and was discharged from the lab. Discharge: The patient left the laboratory in stable condition. Birthdate: Patient birthdate: 1950. Sex: Gender: male. Study date: Study date: 08/11/2018. Study time: 00:01 AM. Signature Documentation: - The imaging portion of this study was interpreted by [facility] [employer] Harjit Montanez MD. - The Stress ECG portion of this study was interpreted by Harjit Montanez MD. Electronically signed by Harjit Montanez 08/11/2018 15:43
[2018-08-11] MEDS: Regadenoson 0.4 MG/5 ML SYR IVP (11:40)
== END 2018-08-11 00:42 ==
PROVIDERS: PCP Family Medicine; Visit Provider Internal Medicine Cardiovascular Disease
DX: R07.9 Chest pain, unspecified (principal); I48.0 Paroxysmal atrial fibrillation; I47.2 Ventricular tachycardia; I25.10 Atherosclerotic heart disease of native coronary artery without angina pectoris; I25.5 Ischemic cardiomyopathy; I10 Essential (primary) hypertension; E78.5 Hyperlipidemia, unspecified; Z95.810 Presence of automatic (implantable) cardiac defibrillator
CPT/HCPCS: 78452; 93016; 93018; 93017; J2785

== ENCOUNTER → 2018-09-03 10:42 | Outpatient (BNVA) | payer MEDICARE, SELFPAY | PROVIDERS: PCP Family Medicine; Visit Provider Internal Medicine Cardiovascular Disease | DX: I25.5 Ischemic cardiomyopathy (principal); I10 Essential (primary) hypertension; I25.10 Atherosclerotic heart disease of native coronary artery without angina pectoris; I47.2 Ventricular tachycardia; I48.0 Paroxysmal atrial fibrillation; I35.1 Nonrheumatic aortic (valve) insufficiency; Z95.810 Presence of automatic (implantable) cardiac defibrillator; E11.9 Type 2 diabetes mellitus without complications | CPT/HCPCS: 99214 ==

== ENCOUNTER 2018-10-13 12:33 | Outpatient (CLI) | payer MEDICARE, SELFPAY ==
[2018-10-13 13:55] LABS: HCT 38.8 % (40.0-50.0); HGB 12.3 g/dL (13.5-17.5); Mean Corp. HGB Concentration 31.7 g/dL (32.0-36.0); Mean Corpuscular Volume 78.9 fL (80-95); Mean Platelet Volume 9.4 fL (8.0-11.0); Platelet Count 232 x1000/uL (130-400); RBC 4.92 m/cumm (4.50-6.00); RBC Distribution Width 16.3 % (11.8-14.1); White Blood Cell Count 6.27 k/cumm (4.4-10.8)
[2018-10-13 14:11] LABS: BUN 12 mg/dL (7-18); CREATININE 0.93 mg/dL (0.70-1.30); Calcium 8.6 mg/dL (8.5-10.1); Chloride 105 mmol/L (98-107); Glucose 158 mg/dL (70-100); Potassium 4.2 mmol/L (3.5-5.1); Sodium 144 mmol/L (136-145); TSH (W/Ref FT4) 1.33 uIU/mL (0.358-3.74)
== END 2018-10-13 12:53 ==
PROVIDERS: PCP Family Medicine; Visit Provider Family Medicine
DX: I48.91 Unspecified atrial fibrillation (principal)
CPT/HCPCS: 36415; 80048; 85027; 84443

== ENCOUNTER → 2018-11-22 13:20 | Outpatient (BNVA) | payer MEDICARE, SELFPAY | PROVIDERS: PCP Family Medicine; Referring Provider Family Medicine; Visit Provider Physical Therapy Assistant | DX: Z12.11 Encounter for screening for malignant neoplasm of colon (principal); Z79.01 Long term (current) use of anticoagulants; E11.9 Type 2 diabetes mellitus without complications; I10 Essential (primary) hypertension ==

== ENCOUNTER 2018-12-17 08:14 | Day surgery (SDC) | payer MEDICARE, SELFPAY ==
[2018-12-17 08:28] VITALS: BP 143/73; PULSE 66; RESP 16; TEMP 36.4; O2SAT 100
--- NOTE | 2018-12-17 09:26 | W.PM.DSUDISC ---
Discharge Plan Disposition Patient Disposition: HOME Condition: Good Discharge Details Reason For Visit: EGD, Colonoscopy Attending Provider: Amanda Hartman Primary Care Provider: Dewayne Carrington Home Meds and New Rx's Prescriptions: Continued Trintellix 20 mg tablet 20 mg PO DAILY RF: 0 glipizide 5 mg tablet extended release 24hr 5 mg PO DAILY RF: 0 triamcinolone acetonide 0.1 % cream 1 applic TP BID RF: 0 Atorvastatin Calcium 20 MG tablet 80 mg PO DAILY RF: 0 cholecalciferol (vitamin D3) [Vitamin D3] 2,000 UNIT capsule 2,000 unit PO DAILY RF: 0 aspirin 81 MG tablet,chewable 81 mg PO DAILY RF: 0 metoprolol succinate 100 MG tablet extended release 24 hr 100 mg PO DAILY Qty: 90 RF: 0 multivitamin [Men's Multi-Vitamin] 1 EACH tablet 1 ea PO DAILY RF: 0 metformin [Glucophage] 1,000 MG tablet 1,000 mg PO BID@0800,1700 RF: 0 zolpidem 10 MG tablet 10 mg PO HS PRN PRNRF: 0 lamotrigine 100 MG tablet 200 mg PO DAILY RF: 0 alprazolam 3 MG tablet extended release 24 hr 3 mg PO HS RF: 0 pantoprazole [Protonix] 20 MG tablet,delayed release (DR/EC) 40 mg PO DAILY RF: 0 lisinopril 10 MG tablet 10 mg PO QAM RF: 0 acetaminophen [Mapap Extra Strength] 500 MG tablet 500 mg PO PRN PRNRF: 0 Victoza 3-Ruddy 0.6 MG/0.1 ML pen injector 1.2 mg SQ DAILY RF: 0 Xarelto 20 MG tablet 20 mg PO DAILY RF: 0 tramadol 50 MG tablet 50 mg PO PRN PRNRF: 0 magnesium oxide 400 mg magnesium Tablet 2,000 mg PO BID RF: 0 Discontinued polyethylene glycol 3350 17 gram/dose powder 238 g PO ONCE Qty: 238 RF: 0 bisacodyl [Dulcolax (bisacodyl)] 5 mg tablet,delayed release (DR/EC) 5 mg PO ONCE Qty: 4 RF: 0 Discharge Instructions Additional Instructions: Findings: Your EGD showed inflammation in the stomach. My office will contact you with biopsy results. The esophagus looked normal. Your colonoscopy showed diverticulosis. Follow up: Plan for a screening colonoscopy in 10 years or sooner if symptoms arise. Consider taking a daily stool softener such as Colace Please call if you develop: fevers >101.5 Nausea or Vomiting Abdominal pain that is not transient DAY SURGERY UNIT POST COLONOSCOPY INSTRUCTIONS 1. Because there will be medication in your system for the next 24 hours, you may feel a little sleepy. Your coordination will be affected. Therefore: a. Do not drive or operate dangerous equipment for 24 hours. b. Do not drink alcohol beverages for 24 hours (not even beer). c. Plan to go home and rest for the day. 2. Generally there are no restrictions on your activity after a day or so has gone by, but you may feel a bit fatigued for a few days. 3 After you arrive home you may have a light meal and return to a normal diet as you can tolerate it without feeling sick to your stomach. 4. After surgery, you may feel pain or discomfort. This should be only transient, but if it persists please contact your doctor. 5. If there are any questions regarding the findings of your procedure, please feel free to contact your doctor. 6. If you are unable to contact your doctor with a problem, contact the hospital at [phone]. 7. Continue all your regular medications unless directed otherwise. I understand the above instructions and have no questions. Signature of Patient or Responsible Adult Escort Date/Time Name of Responsible Adult Escort Signature of Nurse Date/Time Stand Alone Forms: DSU Post EGD Instructions, Tg Wu (DSU) Activity:: Activity as Tolerated Diet:: As Tolerated Discharge Orders Discharge Orders: Discharge Order (Routine); Ordered 12/17/18 Ordered By: Amanda Hartman DS: Diagnosis Discharge Diagnosis (1) Gastritis: Status: Acute (2) Diverticulosis: Status: Acute
[2018-12-17] MEDS: Lactated Ringers 1,000 ML 80 ML IV (09:29)
[2018-12-17] MEDS: Lidocaine 2% Viscous 15 ML CUP (09:45)
--- NOTE | 2018-12-17 09:54 | STOM_PTH ---
PATIENT: Marquez Hendrix LOC: [facility] U#:[id number] AGE/SX: 68/M ROOM: RE12/17/[address]: Amanda Hartman MD : 1950 BED: DIS: 12/17/2018 SPEC #: [id number] RECD: 12/17/18 12:48 STATUS: NORBERT REShubham #: [id number] SYLVIA: 12/17/18 09:[address]: Amanda Hartman DEPT: Surgical Specimen RECD BY: Yumiko Orozco ENTERED: 12/17/18 12:49 SP TYPE: STOMACH OTHR DR: Dewayne Carrington Tissues: 1 - STOMACH BIOPSY Procedures: GROSS AND MICRO LEVEL 4 Comments: [id number]
--- NOTE | 2018-12-17 11:28 | ENDO_ITS ---
REPORT OF OPERATIVE PROCEDURE DATE OF PROCEDURE December 17, 2018 PREOPERATIVE DIAGNOSES 1. Dysphagia. 2. Need for colon screening. POSTOPERATIVE DIAGNOSES 1. Gastritis. 2. Diverticulosis. PROCEDURES 1. EGD with gastric biopsy. 2. Colonoscopy. SURGEON Amanda Hartman M.D. ANESTHESIA General. INDICATION This is a 68-year-old man who presents for routine colon screening. The date of his last colonoscopy cannot be confirmed. He does note some chronic constipation. He also reports some difficulty swallowi ng and hoarseness. PROCEDURE DESCRIPTION He was placed in the left lateral decubitus position. Propofol was titrated to sedation. The scope wa s advanced into the esophagus under direct visualization and passed down into the stomach and the duo denum. There was no duodenitis noted. The gastric antrum revealed moderate gastritis. Biopsies were t aken from this region. Retroflexed view of the fundus and lesser curvature showed no other abnormalit ies. The GE junction was carefully inspected and showed no masses, Mascorro's, inflammation or strictu res. The air was suctioned from the stomach and the scope withdrawn with no other esophageal lesions found. Digital rectal examination revealed no abnormalities. The scope was advanced to the cecum without dif ficulty. His prep was adequate, although a small polyp could be obscured. The scope was slowly withdr awn with no abnormalities seen within the ascending, transverse or descending colon. In the sigmoid r egion, he was noted to have mild to moderate diverticular change. The rectum was normal including on retroflexed view. He tolerated the procedure well and was stable to Recovery. He can consider taking a daily stool softener. He did not have good results with fiber. He will need a followup screening coloscopy again in 10 years or sooner if symptoms indicate. CC: Dewayne Carrington M.D.
== END 2018-12-17 11:42 | disposition home or self-care (01) ==
PROVIDERS: PCP Family Medicine; Visit Provider Surgery
PROC: (CPT 43239; principal; 2018-12-17 10:00)
DX: R13.10 Dysphagia, unspecified (principal); Z12.11 Encounter for screening for malignant neoplasm of colon; K29.70 Gastritis, unspecified, without bleeding; K57.30 Diverticulosis of large intestine without perforation or abscess without bleeding; E11.9 Type 2 diabetes mellitus without complications; K21.9 Gastro-esophageal reflux disease without esophagitis; I10 Essential (primary) hypertension
CPT/HCPCS: 43239; G0121; 88305

== ENCOUNTER 2018-12-21 08:58 | Outpatient (CLI) | payer MEDICARE, SELFPAY ==
[2018-12-21 10:31] LABS: Magnesium 1.5 mg/dL (1.8-2.4)
[2018-12-21 10:50] LABS: Iron 28 ug/dL (50-175); Total Iron Binding Capacity 436 ug/dL (250-450); Transferrin Sat 6 % (20-55)
== END 2018-12-21 09:18 ==
PROVIDERS: PCP Family Medicine; Visit Provider Family Medicine
DX: I48.91 Unspecified atrial fibrillation (principal); D50.9 Iron deficiency anemia, unspecified; L89.309 Pressure ulcer of unspecified buttock, unspecified stage; E61.2 Magnesium deficiency
CPT/HCPCS: 36415; 83540; 83550; 83735

== ENCOUNTER → 2019-01-31 08:40 | Outpatient (BNVA) | payer MEDICARE, SELFPAY | PROVIDERS: PCP Family Medicine; Referring Provider Family Medicine; Visit Provider Internal Medicine Cardiovascular Disease | DX: I25.10 Atherosclerotic heart disease of native coronary artery without angina pectoris (principal); I48.91 Unspecified atrial fibrillation; I47.2 Ventricular tachycardia; I10 Essential (primary) hypertension; E11.9 Type 2 diabetes mellitus without complications; Z79.84 Long term (current) use of oral hypoglycemic drugs | CPT/HCPCS: 99205; 99215 ==

== ENCOUNTER 2019-03-03 01:39 | Outpatient (CLI) | payer MEDICARE, SELFPAY ==
--- NOTE | 2019-03-03 06:53 | DI.RAD_ITS ---
EXAM: RF JOINT INJECTION FLUORO GUID CLINICAL HISTORY: R WRIST PAIN,M25.531, RT WRIST INJECTION. TECHNIQUE: 2D and realtime digital imaging was performed. COMPARISON: No exams were available for comparison FINDINGS: Fluoroscopy was provided for guidance with the injection. Please see procedure note for details. Fluoro time: 4 seconds
[2019-03-03] MEDS: methylPREDNISolone ACETATE 40 MG/ML VIAL IM (13:50)
[2019-03-03] MEDS: Omnipaque 300 MG/ML 10 ML BTL IJ (13:50)
[2019-03-03] MEDS: Bupivacaine 0.5% Pres-Free 10 ML VIAL 2 ML IJ (13:51)
--- NOTE | 2019-03-05 07:09 | W.PROCNOTE ---
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 He has had some continued right wrist pain. As a way to diagnose pain hopefully treated, it was suggested that he have an intra-articular wrist injection. I reviewed the risk of the procedure to include continued pain, stiffness, infection. Despite these risks, he elected to proceed. Procedure Description: Pato was greeted in the fluoroscopy room. The correct side, right hand, was identified. The consent was reviewed with the patient and signed. The right hand was placed on the fluoroscopy table and prepped with ChloraPrep. Using the fluoroscopy, an entry point into the wrist between the distal ulna and the proximal row was identified. The skin and soft tissue was anesthetized with 1% lidocaine. The wrist joint was then entered and confirmed with a small amount of Omnipaque. The wrist was then injected with 2 cc of 0.5% bupivacaine and 40 mg of Depo-Medrol.
== END 2019-03-03 01:59 ==
PROVIDERS: PCP Family Medicine; Visit Provider Student in an Organized Health Care Education/Training Program
DX: M25.531 Pain in right wrist (principal); M19.031 Primary osteoarthritis, right wrist
CPT/HCPCS: 20605; 77002; J1030

== ENCOUNTER → 2019-05-05 08:37 | Outpatient (BNVA) | payer OTHER, SELFPAY | PROVIDERS: PCP Family Medicine; Referring Provider Family Medicine; Visit Provider Internal Medicine Cardiovascular Disease | DX: I25.10 Atherosclerotic heart disease of native coronary artery without angina pectoris; I48.0 Paroxysmal atrial fibrillation; I25.5 Ischemic cardiomyopathy; I10 Essential (primary) hypertension; E78.5 Hyperlipidemia, unspecified; E11.9 Type 2 diabetes mellitus without complications; Z79.84 Long term (current) use of oral hypoglycemic drugs | CPT/HCPCS: 99215 ==

== ENCOUNTER 2019-05-05 08:47 | Outpatient (CLI) | payer OTHER, SELFPAY | END 2019-05-05 09:07 | PROVIDERS: PCP Family Medicine; Visit Provider Internal Medicine Cardiovascular Disease | DX: I48.0 Paroxysmal atrial fibrillation (principal); I25.10 Atherosclerotic heart disease of native coronary artery without angina pectoris; I25.5 Ischemic cardiomyopathy; I10 Essential (primary) hypertension; E78.5 Hyperlipidemia, unspecified | CPT/HCPCS: 93005; 93010 ==

== ENCOUNTER → 2019-05-10 09:48 | Outpatient (BNVA) | payer OTHER, SELFPAY | PROVIDERS: PCP Family Medicine; Referring Provider Family Medicine; Visit Provider Psychiatry & Neurology Neurology | DX: G62.9 Polyneuropathy, unspecified (principal); R42 Dizziness and giddiness | CPT/HCPCS: 99205; 99215 ==

== ENCOUNTER 2019-05-12 02:16 | Outpatient (CLI) | payer OTHER, SELFPAY ==
[2019-05-12 10:31] LABS: HCT 40.5 % (40.0-50.0); HGB 12.7 g/dL (13.5-17.5); Mean Corp. HGB Concentration 31.4 g/dL (32.0-36.0); Mean Corpuscular Volume 82.8 fL (80-95); Mean Platelet Volume 9.2 fL (8.0-11.0); Platelet Count 233 x1000/uL (130-400); RBC 4.89 m/cumm (4.50-6.00); RBC Distribution Width 16.2 % (11.8-14.1); White Blood Cell Count 5.64 k/cumm (4.4-10.8)
[2019-05-12 11:29] LABS: ALT 62 U/L (16-63); AST 50 U/L (15-37); Albumin 4.2 g/dL (3.4-5.0); Alkaline Phosphatase 90 U/L (46-116); Anion Gap 10.8 mmol/L (3-11); BUN 12 mg/dL (7-18); Bilirubin, Total 0.6 mg/dL (0.2-1.0); CO2 29.2 mmol/L (21.0-32.0); CREATININE 0.96 mg/dL (0.70-1.30); Calcium 8.6 mg/dL (8.5-10.1); Chloride 101 mmol/L (98-107); Glucose 204 mg/dL (74-106); Magnesium 1.7 mg/dL (1.8-2.4); Potassium 4.3 mmol/L (3.5-5.1); Sodium 141 mmol/L (136-145); Total Protein 7.5 g/dL (6.4-8.2)
[2019-05-12 11:56] LABS: Vitamin B12 370 pg/mL (193-986)
[2019-05-13 14:20] LABS: Albumin 57.9 % (55.8-66.1); Total Protein 7.2 g/dL (6.3-8.2)
[2019-05-17 09:40] LABS: Methylmalonic Acid 0.15 nmol/mL (<=0.40)
== END 2019-05-12 02:36 ==
PROVIDERS: Psychiatry & Neurology Neurology; PCP Family Medicine; Visit Provider Family Medicine
DX: E61.2 Magnesium deficiency (principal); R74.8 Abnormal levels of other serum enzymes; D50.9 Iron deficiency anemia, unspecified; G62.9 Polyneuropathy, unspecified
CPT/HCPCS: 36415; 80053; 80186; 85027; 82607; 83735; 84165

== ENCOUNTER 2019-05-12 10:12 | Outpatient (CLI) | payer OTHER, SELFPAY | END 2019-05-12 10:32 | PROVIDERS: PCP Family Medicine; Visit Provider Internal Medicine Cardiovascular Disease | DX: I48.0 Paroxysmal atrial fibrillation (principal); I25.10 Atherosclerotic heart disease of native coronary artery without angina pectoris; I25.5 Ischemic cardiomyopathy; I10 Essential (primary) hypertension; E78.5 Hyperlipidemia, unspecified | CPT/HCPCS: 93005; 93010 ==

== ENCOUNTER 2019-05-20 14:31 | Outpatient (REF) | payer OTHER, SELFPAY ==
[2019-05-23 09:39] LABS: Hepatitis B Surface Ag Negative (Negative)
== END 2019-05-20 14:51 ==
LOC: NCHCN 14:31
PROVIDERS: PCP Family Medicine; Visit Provider Family Medicine
DX: R19.7 Diarrhea, unspecified (principal); R74.8 Abnormal levels of other serum enzymes
CPT/HCPCS: 87340; 86255

== ENCOUNTER 2019-06-13 11:05 | Outpatient (CLI) | payer OTHER, SELFPAY | END 2019-06-13 11:25 | PROVIDERS: PCP Family Medicine; Visit Provider Internal Medicine Cardiovascular Disease | DX: I25.5 Ischemic cardiomyopathy (principal); I25.10 Atherosclerotic heart disease of native coronary artery without angina pectoris; I47.2 Ventricular tachycardia; I48.0 Paroxysmal atrial fibrillation; I10 Essential (primary) hypertension | CPT/HCPCS: 99214; 93005; 93010 ==

== ENCOUNTER → 2019-08-09 07:31 | Outpatient (BNVA) | payer MEDICARE, SELFPAY | PROVIDERS: PCP Family Medicine; Referring Provider Family Medicine; Visit Provider Nurse Practitioner Adult Health | DX: R69 Illness, unspecified (principal) ==

== ENCOUNTER → 2019-09-21 11:19 | Outpatient (BNVA) | payer OTHER, SELFPAY | PROVIDERS: PCP Family Medicine; Referring Provider Family Medicine; Visit Provider Internal Medicine Cardiovascular Disease | DX: I47.2 Ventricular tachycardia (principal); Z45.018 Encounter for adjustment and management of other part of cardiac pacemaker; E11.9 Type 2 diabetes mellitus without complications; Z79.84 Long term (current) use of oral hypoglycemic drugs | CPT/HCPCS: 93282; 99212 ==

== ENCOUNTER → 2019-12-12 13:20 | Outpatient (BNVA) | payer OTHER, SELFPAY | PROVIDERS: PCP Family Medicine; Referring Provider Family Medicine; Visit Provider Internal Medicine Cardiovascular Disease | DX: I47.2 Ventricular tachycardia (principal); I25.10 Atherosclerotic heart disease of native coronary artery without angina pectoris; I10 Essential (primary) hypertension; I48.0 Paroxysmal atrial fibrillation; I25.5 Ischemic cardiomyopathy | CPT/HCPCS: 99214 ==

== ENCOUNTER → 2019-12-13 14:25 | Outpatient (BNVA) | payer OTHER, SELFPAY | PROVIDERS: PCP Family Medicine; Referring Provider Family Medicine; Visit Provider Nurse Practitioner Adult Health | DX: E11.42 Type 2 diabetes mellitus with diabetic polyneuropathy (principal); Z79.84 Long term (current) use of oral hypoglycemic drugs | CPT/HCPCS: 99213 ==

== ENCOUNTER 2019-12-16 03:58 | Outpatient (CLI) | payer OTHER, SELFPAY ==
--- NOTE | 2019-12-16 | DI.US_ITS ---
EXAM: US ABDOMEN INDICATION: ELEVATED LIVER ENZYMES,R74.8,CAD,DIABETES,?FATTY LIVER OR SPLENOMEGALY COMPARISON: US CAROTID ULTRASOUND from 08/25/2011 TECHNIQUE: Ultrasound abdomen performed using standard protocol FINDINGS: Abdominal ultrasound was performed according to the usual protocol. The liver is normal in size and shape. No focal hepatic lesion seen. There is mild diffuse increased hepatic echogenicity consistent with hepatic steatosis. Note is made of a prior cholecystectomy. There is no biliary dilatation.. No gallbladder wall thick ening or pericholecystic fluid collection. Pancreas appears intact as visualized. Spleen is unremarkable in appearance with no focal lesion. There is no evidence of hydronephrosis or nephrolithiasis. There are multiple left renal simple cyst s, the largest measuring about 39 millimeters in diameter at the midpole. Abdominal aorta and IVC are of normal diameter. IMPRESSION: Negative abdominal ultrasound post cholecystectomy. Incidental left renal cysts.
== END 2019-12-16 04:18 ==
PROVIDERS: PCP Family Medicine; Visit Provider Family Medicine
DX: R94.5 Abnormal results of liver function studies (principal); N28.1 Cyst of kidney, acquired
CPT/HCPCS: 76700

== ENCOUNTER 2020-05-14 15:01 | Outpatient (REF) | payer OTHER, SELFPAY ==
[2020-05-14 18:16] LABS: HGB 15.7 g/dL (13.5-17.5); MCH 29.9 pg (27.0-33.0); MCHC 33.4 % (32.0-36.0); MCV 89.5 fL (80-95); MPV 10.1 fL (8.0-11.0); Platelet Count 178 10^3/uL (130-400); RBC 5.25 10^6/uL (4.36-5.78); RDW-SD 42.2 fL; WBC 7.07 10^3/uL (4.4-10.8)
[2020-05-14 18:36] LABS: Iron 109 ug/dL (65-175); Total Iron Binding Capacity 444 ug/dL (250-450); Transferrin Sat 25 % (20-55)
[2020-05-14 18:37] LABS: ALT 78 U/L (16-63); AST 63 U/L (15-37); Albumin 4.3 g/dL (3.4-5.0); Alkaline Phosphatase 77 U/L (46-116); Anion Gap 9.6 mmol/L (3-11); BUN 20 mg/dL (7-18); Bilirubin, Total 0.7 mg/dL (0.2-1.0); CO2 26.4 mmol/L (21.0-32.0); CREATININE 1.22 mg/dL (0.70-1.30); Calcium 9.6 mg/dL (8.5-10.1); Chloride 101 mmol/L (98-107); Estimated GFR 58.73 (mL/min/1.73m2); Glucose 306 mg/dL (74-106); Magnesium 2.1 mg/dL (1.8-2.4); Sodium 137 mmol/L (136-145); Total Protein 7.6 g/dL (6.4-8.2)
== END 2020-05-14 15:21 ==
LOC: NCHCN 15:01
PROVIDERS: PCP Family Medicine; Visit Provider Family Medicine
DX: E61.2 Magnesium deficiency (principal); K76.0 Fatty (change of) liver, not elsewhere classified; D50.9 Iron deficiency anemia, unspecified
CPT/HCPCS: 80053; 85027; 83540; 83550; 83735

== ENCOUNTER → 2020-05-23 11:25 | Outpatient (BNVA) | payer OTHER, SELFPAY | PROVIDERS: PCP Family Medicine; Referring Provider Family Medicine; Visit Provider Internal Medicine Cardiovascular Disease | DX: I47.2 Ventricular tachycardia (principal); Z45.02 Encounter for adjustment and management of automatic implantable cardiac defibrillator | CPT/HCPCS: 93282; 99212 ==

== ENCOUNTER → 2020-06-12 12:56 | Outpatient (BNVA) | payer OTHER, SELFPAY | PROVIDERS: PCP Family Medicine; Referring Provider Family Medicine; Visit Provider Internal Medicine Cardiovascular Disease | DX: I47.2 Ventricular tachycardia (principal); I25.10 Atherosclerotic heart disease of native coronary artery without angina pectoris; I48.91 Unspecified atrial fibrillation; I10 Essential (primary) hypertension; Z95.810 Presence of automatic (implantable) cardiac defibrillator | CPT/HCPCS: 99214; 99213 ==

== ENCOUNTER → 2020-07-09 07:44 | Outpatient (BNVA) | payer OTHER, SELFPAY | PROVIDERS: PCP Family Medicine; Referring Provider Family Medicine; Visit Provider Nurse Practitioner Adult Health | DX: E11.40 Type 2 diabetes mellitus with diabetic neuropathy, unspecified (principal); M20.40 Other hammer toe(s) (acquired), unspecified foot | CPT/HCPCS: 99213 ==

== ENCOUNTER 2020-11-27 21:54 | Inpatient (IN) | payer OTHER, SELFPAY ==
[2020-11-27] VITALS (41 sets, daily range): BP systolic 73–169; BP diastolic 48–114; PULSE 67–152; RESP 9–21; TEMP 36.1; O2SAT 89–98
--- NOTE | 2020-11-27 21:45 | RT.EKG_ITS ---
APPROVED REPORT Exam: Resting ECG Reason for Exam: chest pain Patient Location: E HR:150 bpm ECG Measurements Heart Rate 150 AXIS MN 98 P -45 QRSd 178 QRS -72 QT 376 T 111 QTc 595 Conclusion Extreme tachycardia with wide complex, no further rhythm analysis attempted
--- NOTE | 2020-11-27 22:00 | DI.RAD_ITS ---
Exam(s) XR PORTABLE CHEST AP EXAM: XR PORTABLE CHEST AP CLINICAL HISTORY: shortness of breath TECHNIQUE: 2D digital imaging was performed. COMPARISON: CR CHEST 2 VIEWS PA,LAT from 01/19/2017 FINDINGS: LUNGS: Clear. No pleural abnormality seen. HEART: Normal. Pacemaker and coronary artery stent. Overlying pad. MEDIASTINUM: Normal. BONES: Unremarkable. IMPRESSION: No acute pulmonary findings. DATA REPOSITORY: RADIATION DOSE DELIVERED:
[2020-11-27 22:02] LABS: HCT 45.7 % (40.0-50.0); HGB 15.1 g/dL (13.5-17.5); Lymphocytes % 24.7; MCH 29.1 pg (27.0-33.0); MCV 88.1 fL (80-95); MPV 9.3 fL (8.0-11.0); Monocytes % 7.4; Neutrophils % 63.9; Platelet Count 211 10^3/uL (130-400); RBC 5.19 10^6/uL (4.36-5.78); RDW 13.3 % (11.8-14.1); RDW-SD 43.1 fL; WBC 11.63 10^3/uL (4.4-10.8)
--- NOTE | 2020-11-27 22:02 | W.ED.GENAD ---
Discharge Plan Disposition Patient Disposition: [facility] INPATIENT Condition: Stable Discharge Details Chief Complaint: Chest Pain Clinical Impression: Ventricular tachycardia Primary Care Provider: Dewayne Carrington ED Provider: Yaron Fitzpatrick [place] Meds and New Rx's Prescriptions: No Action nitroglycerin 0.4 mg tablet, sublingual 0.4 mg SL Q5M PRNRF: 0 glipizide 5 mg tablet extended release 24hr 10 mg PO DAILY RF: 0 Viibryd 20 mg tablet 40 mg PO HS RF: 0 clonazepam 1 mg tablet 1 mg PO BID RF: 0 cyanocobalamin (vitamin B-12) [Vitamin B-12] 1,000 mcg tablet 1,000 mcg PO DAILY RF: 0 Atorvastatin Calcium 20 MG tablet 80 mg PO HS RF: 0 aspirin 81 MG tablet,chewable 81 mg PO DAILY RF: 0 cholecalciferol (vitamin D3) [Vitamin D3] 50 mcg (2,000 unit) capsule 2,000 unit PO DAILY RF: 0 Xarelto 20 mg tablet 20 mg PO DAILY Qty: 90 RF: 3 metoprolol succinate 100 mg tablet extended release 24 hr 150 mg PO BID Qty: 90 RF: 6 multivitamin [Men's Multi-Vitamin] 1 EACH tablet 1 ea PO DAILY RF: 0 metformin [Glucophage] 1,000 MG tablet 1,000 mg PO BID@0800,1700 RF: 0 zolpidem 10 MG tablet 10 mg PO HS PRN PRNRF: 0 lamotrigine 100 mg tablet 250 mg PO DAILY RF: 0 pantoprazole [Protonix] 20 MG tablet,delayed release (DR/EC) 40 mg PO HS RF: 0 lisinopril 10 MG tablet 10 mg PO QAM RF: 0 acetaminophen [Mapap Extra Strength] 500 MG tablet 500 mg PO PRN PRNRF: 0 Victoza 3-Ruddy 0.6 MG/0.1 ML pen injector 1.8 mg SQ HS RF: 0 tramadol 50 MG tablet 50 mg PO PRN PRNRF: 0 magnesium oxide 400 mg magnesium tablet 800 mg PO TID RF: 0 Medical Decision Making 70 yo male with hx of afib on xarelto, vtach with prior icd placement 5 years ago per patient, peripheral neuropathy, comes in with ems with shortness of breath. He walks 4 miles every day and was on his walk this evening feeling well then suddenly had shortness of breath and general feeling of lightheadedness, no chest pain or pressure. He drove home and still felt the same so called ems who noted he was in afib so brought him here and administered 150mg amio. He arrives speaking and in stable vital signs, still denies chest pain and on monitor and ekg appears to be in vtach with rates ranging from 160-180. He denies fevers or cough. He has not felt his icd go off. Given the rhythm and that he is stable currently will continue amio drip, evaluate for electrolyte abnormalities and also cardiac ischemia and consult cardiology [place] [facility]. shortly after initial assessment and prior to any consults being placed he had several repeat BP's in the 70's systolic, remains alert feeling lightheaded so he had emergency synchronized cardioversion with 75mcg fentanyl and 9mg of etomidate given for sedation and had 120J synchronized cardioversion done with successful conversion to sinus rhythm. PT awake and talking and asymptomatic now, stable vitals with normal BP. Labs unremarkable other than mag of 1.6 and mild jenn. Awaiting call from [facility] Pt remains asymptomatic and stable in sinus rhythm. Spoke with plant maintenance engineer Dr. Torres who agreed with treatment provided here and recommended continuing amiodarone drip. They felt his icd likely did not go off because his set rate is above what his vtach rate was and this will need to be changed. They unfortunately can't take him in transfer tonight but should be able to take him tomorrow and recommended continuing the drip and tele monitoring. I discussed with pt and he would prefer to go to [facility] where he gets his care rather than trying [facility]. I spoke with hospitalist who accepts for admission until [facility] can accept him in transfer Differential Diagnosis Differential Diagnosis: ventricular tachycardia, electrolyte abnormality, acs Medical Records Medical records reviewed: Yes I reviewed the patient's medical records. Lab Data Lab results reviewed: Yes I reviewed the patient's lab results. ECG Data Attestation: I personally reviewed and interpreted this ECG (s) as follows: Prior ECG tracings: not available for review Interpretation: 1st ekg ventricular tachycardia, rate of 150 qtc 590 2nd ekg shows sinus rhythm, rate of 85, pr [address] wave ischemic findings HPI General Mode of arrival: EMS. Date/Time Provider Initiated Documentation: 11/27/20 21:59. Limitations to Documentation: no limitations. Information obtained by: patient. History of Present Illness 70 year old M presents to the emergency department with the chief complaint of shortness of breath, described as moderate, Patient reports no radiation. Patient started experiencing this hour(s) (3) and it has been constant. No relieving factors improve symptom(s), No exacerbating factors reported . Related Data Home Medications Medication Instructions Recorded Confirmed metformin [Glucophage] 1,000 mg PO BID@0800,1700 05/16/13 11/27/20 multivitamin [Men's Multi-Vitamin] 1 ea PO DAILY 05/16/13 11/27/20 zolpidem 10 mg PO HS PRN PRN 05/16/13 11/27/20 lisinopril 10 mg PO QAM 12/06/13 11/27/20 pantoprazole [Protonix] 40 mg PO HS 12/06/13 11/27/20 Atorvastatin Calcium 80 mg PO HS tab-cap 11/24/16 11/27/20 acetaminophen [Mapap Extra 500 mg PO PRN PRN 12/18/16 11/27/20 Strength] Victoza 3-Ruddy 1.8 mg SQ HS 01/19/17 11/27/20 aspirin 81 mg PO DAILY tab-cap 07/23/17 11/27/20 tramadol 50 mg PO PRN PRN 07/24/17 11/27/20 nitroglycerin 0.4 mg sublingual 0.4 mg SL Q5M PRN 01/31/19 11/27/20 tablet cholecalciferol (vitamin D3) 50 2,000 unit PO DAILY 06/13/19 11/27/20 mcg (2,000 unit) capsule rivaroxaban 20 mg tablet 20 mg PO DAILY #90 tab 09/06/19 11/27/20 clonazepam 1 mg tablet 1 mg PO BID 09/21/19 11/27/20 vilazodone 20 mg tablet 40 mg PO HS tab 09/21/19 11/27/20 cyanocobalamin (vitamin B-12) 1,000 mcg PO DAILY 12/13/19 11/27/20 1,000 mcg tablet glipizide 5 mg tablet, extended 10 mg PO DAILY tab 07/09/20 11/27/20 release 24 hr lamotrigine 100 mg tablet 250 mg PO DAILY tab 07/09/20 11/27/20 magnesium oxide 800 mg PO TID tab 07/09/20 11/27/20 metoprolol succinate 100 mg 150 mg PO BID #90 tab 09/25/20 11/27/20 tablet,extended release 24 hr Previous Rx's Medication Instructions Recorded rivaroxaban 20 mg tablet 20 mg PO DAILY #90 tab 09/06/19 metoprolol succinate 100 mg 150 mg PO BID #90 tab 09/25/20 tablet,extended release 24 hr Allergies Allergy/AdvReac Type Severity Reaction Status Date / Time adhesive tape Allergy Unknown rash Verified 11/27/20 22:51 latex AdvReac Intermediate trouble Verified 11/27/20 22:51 breathing/moving General SHAILESH: 4 Review of Systems All systems reviewed & are unremarkable except as noted in HPI and below Constitutional Constitutional: Denies chills and Denies fever(s) Cardiovascular Cardiovascular: Denies chest pain Respiratory Respiratory: Denies cough Gastrointestinal Gastrointestinal: Denies abdominal pain, Denies nausea and Denies vomiting Musculoskeletal Musculoskeletal: Denies joint swelling Psychiatric Psychiatric: Denies depression [facility] Medical History Anal fissure Atrial fibrillation CAD (coronary artery disease) Chronic pain Clinical depression Diabetes Esophageal ring GERD (gastroesophageal reflux disease) Hammer toe Hiatal hernia Hyperlipidemia pt. states its a fissure near his coccyx Iron deficiency anemia Ischemic cardiomyopathy Lumbar degenerative disc disease Obstructive sleep apnea Pacemaker Peripheral neuropathy Pressure ulcer, buttock Ventricular tachyarrhythmia s/p ICD 2013 Surgical History History of cholecystectomy History of colonoscopy 12/17/18 History of coronary artery stent placement History of esophagogastroduodenoscopy (EGD) 12/17/18 History of permanent cardiac pacemaker placement with defib Family History Father Heart disease Mother Heart disease Brother Alcoholism Social History Smoking/Tobacco Use Status: Current every day Tobacco Type: smokeless tobacco Counseling given: patient declined Smoking risk assessment performed?: Yes Alcohol Intake: former Drug use: Never Substance use type: does not use Details: Pt states he vapes daily current occupation: Retired What type of physical activity do you participate in: bicycling Frequency: 3-4 times per week Do you feel safe at home: Yes Do you feel safe in your relationship?: Yes Exam Const General: no acute distress Orientation: alert HENMT Head: normal to inspection Ears: external ears normal General nose exam: external nose normal Mouth: moist mucous membranes Eyes General: appearance normal, both eyes and all related structures Neck Neck: normal visual inspection Resp Effort & Inspection: normal respiratory effort and able to speak in complete sentences Cardio Rate: tachycardic Skin General skin exam: no rashes or lesions noted Neuro General: patient alert and patient oriented x3 Extrem General: normal to inspection Psych Mental Status: mental status grossly normal Procedures Procedural Sedation Indication: other (synchronized cardioversion) ASA Class: II Preparation: child monitor applied and pulse oximeter Fentanyl: IV Fentanyl dose (mcg): 75 IV Etomidate dose (mg): 9 Patient Tolerated Procedure: well Complications: none Other Description: emergency cardioversion done for hypotension in setting of vtach and gave verbal permission, he had 120J synchronized cardioversion performed with successful conversion to sinus rhythm Critical Care Time Critical Care Time Critical Care Time: Yes Total Critical Care Time: 90 (minutes) Attestation: time spent reviewing labs, frequent reassesments and monitoring in a patient with ventricular tachycardia with potential to deteriorate at any time
[2020-11-27 22:03] LABS: Abs Immature Grans 0.07 10^3/uL (0.0-0.06); Absolute Basophil Count 0.06 10^3/uL (0.0-0.2); Absolute Eosinophil Count 0.34 10^3/uL (0.0-0.7); Absolute Lymphocyte Count 2.87 10^3/uL (1.2-3.4); Absolute Monocyte Count 0.86 10^3/uL (0.1-0.8); Absolute Neutrophil Count 7.43 10^3/uL (1.2-6.7); Basophils % 0.5; Eosinophils % 2.9; Immature Grans % 0.6; Nucleated RBC 0 %
--- NOTE | 2020-11-27 22:15 | RT.EKG_ITS ---
APPROVED REPORT Exam: Resting ECG Reason for Exam: chest pain Patient Location: E HR:85 bpm ECG Measurements Heart Rate 85 AXIS AL 68 P -72 QRSd 87 QRS 204 QT 257 T 204 QTc 307 Conclusion Uncertain rhythm: review...rhythm measurements incomplete Anterolateral infarct, age indeterminate...Q >35mS, flat/neg T, V3-V6,I,aVL
[2020-11-27 22:17] LABS: ALT 59 U/L (16-63); AST 48 U/L (15-37); Albumin 4.1 g/dL (3.4-5.0); Alkaline Phosphatase 73 U/L (46-116); Anion Gap 12.1 mmol/L (3-11); BUN 17 mg/dL (7-18); Bilirubin, Total 0.7 mg/dL (0.2-1.0); CO2 20.9 mmol/L (21.0-32.0); CREATININE 1.4 mg/dL (0.70-1.30); Chloride 104 mmol/L (98-107); Estimated GFR 49.96 (mL/min/1.73m2); Glucose 229 mg/dL (74-106); INR 1.3 (0.9-1.1); Magnesium 1.6 mg/dL (1.8-2.4); PTT Activated 30.5 sec (21.0-27.5); Potassium 5.1 mmol/L (3.5-5.1); Prothrombin Time 13.3 sec (9.3-11.0); Sodium 137 mmol/L (136-145); Total Protein 7.5 g/dL (6.4-8.2)
[2020-11-27 22:18] LABS: Troponin I < 0.05 ng/mL (<0.06)
[2020-11-27] MEDS: fentaNYL 100 MCG/2 ML VIAL 75 MCG IVP (22:18)
[2020-11-27] MEDS: Etomidate 20 MG/10 ML VIAL 9 MG IVP (22:21)
[2020-11-27 22:39] LABS: Source Nasal/Nares
--- NOTE | 2020-11-27 22:41 | NUR.NOTE ---
Radiology at bedsideNursing Note:
[2020-11-27] MEDS: MAGNESIUM SULFATE 2 GM/50 ML BAG IVPB (22:55)
--- NOTE | 2020-11-27 23:05 | DI.VRAD_ITS ---
PROCEDURE INFORMATION: Exam: XR Chest Exam date and time: 11/27/2020 10:02 PM Age: 70 years old Clinical indication: Shortness of breath; Prior surgery; Surgery date: 6+ months; Surgery type: Pacemaker; Patient HX: SOB TECHNIQUE: Imaging protocol: XR of the chest. Views: 1 view. COMPARISON: CT Abdomen^CAP WITH (Adult) 04/22/2018 10:36 AM FINDINGS: Tubes, catheters and devices: Left approach pacer again noted. Leads project over the patient. There is a device projecting over the right heart. Lungs: Unremarkable. No consolidation. Pleural spaces: Unremarkable. No pleural effusion. No pneumothorax. Heart/Mediastinum: Unremarkable. No cardiomegaly. Bones/joints: Unremarkable. Soft tissues: Pad projects over the patient. IMPRESSION: No acute cardiopulmonary disease Dictated and Authenticated by: Abner Richardson MD. Ordering:DAVION Marrufo MD
[2020-11-27 23:30] LABS: COVID-19 PCR Negative (Negative)
--- NOTE | 2020-11-27 23:57 | W.PM.HP.N ---
Date of service: 11/27/20 Time of Service: 23:57 Assessment and Plan Assessment and plan (1) Ventricular tachycardia: Start date: 11/27/20 Status: Acute Assessment and plan: This is a 70-year-old gentleman with a history of sustained ventricular tachycardia status post AICD in 2013 presenting with failure of his AICD to cardiovert in the field probably being set at too high of a rate to capture his slower rate of sustained V. tach upon presentation to the ED. He did require cardioversion which he tolerated well. He is on amiodarone infusion and doing well with metoprolol being decreased in dosing with short acting formulation while on amiodarone. He is pending transfer to tertiary care center to evaluate his AICD settings. He will most likely be converted to oral amiodarone. Adjustment of his other medications will need to be considered. Cardiology will follow up. Patient does have mild HERMES and hypomagnesemia with IV hydration and magnesium repletion following up on labs in the morning. (2) Atrial fibrillation: Status: Chronic Assessment and plan: Patient does also have paroxysmal atrial fibrillation and is on Xarelto which will be continued the same. Continue beta-blockade as needed with amiodarone initiated. Qualifiers: Atrial fibrillation type: paroxysmal Qualified Code(s): I48.0 - Paroxysmal atrial fibrillation (3) Hypertension: Status: Chronic Assessment and plan: Stable presently with hypotension as a risk with additional medical therapy. Adjust chronic medical therapy accordingly. Qualifiers: Hypertension type: primary hypertension Qualified Code(s): I10 - Essential (primary) hypertension (4) Diabetes: Status: Chronic Assessment and plan: Patient had hyperglycemia upon admission but is on no treatment for diabetes with this being an old diagnosis. Monitor glucometers with coverage while hospitalized. Qualifiers: Diabetes mellitus complication status: without complication Diabetes mellitus residential insulin use: without residential use Diabetes mellitus type: type 2 Qualified Code(s): E11.9 - Type 2 diabetes mellitus without complications (5) CAD (coronary artery disease): Status: Chronic Assessment and plan: Patient has no findings of significant ischemia and troponins will be trended. He is a full code. Qualifiers: Associated angina: without angina Coronary Disease-Associated Artery/Lesion type: [place] artery [place] vs. transplanted heart: [place] heart Qualified Code(s): I25.10 - Atherosclerotic heart disease of [place] coronary artery without angina pectoris History of Present Illness History of Present Illness Chief Complaint: Generalized weakness with dyspnea Narrative: This is a 70-year-old male patient who has chronic atrial fibrillation on Xarelto with placement of an AICD in 2013 for ventricular tachycardia presenting to the ED with generalized weakness in his arms and shortness of breath while [place] [address] [place] He does walk nightly. He lives alone having been twice with his last in 2009. 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 He was previously an avid biker in [place] but locally has been walking nightly for exercise. This evening when he went for a walk he felt fatigue in both arms and dyspnea which did not improve after returning home with patient barely making it back to his apartment. When he was continuing to feel ill he called EMS who observed atrial fibrillation with rapid ventricular response and administered 150 mg of amiodarone in the field. In the ED he was found to have ventricular tachycardia which was sustained with a rate of 160-180 requiring synchronized cardioversion because of hypotension with a systolic blood pressure in the 70. Patient stabilized with sinus rhythm and stabilize his blood pressure being initiated on amiodarone infusion with bolus and then continuous infusion. At the time I saw the patient he was comfortable and sleeping and remained in sinus rhythm with bradycardia. His blood pressure was stable. He denied palpitations or chest pain during his event but did have arm heaviness bilaterally. His initial evaluation was otherwise negative for acute cardiac ischemia. The patient was [place] in [place] [facility] [place] and referred not to go to [facility]. He was admitted to the ICU for continued amiodarone infusion and awaiting bed availability at tertiary care center. Review of Systems Narrative: 13 point review of systems otherwise unrevealing or stable. [facility] Medical History Anal fissure Atrial fibrillation CAD (coronary artery disease) Chronic pain Clinical depression Diabetes Esophageal ring GERD (gastroesophageal reflux disease) Hammer toe Hiatal hernia Hyperlipidemia pt. states its a fissure near his coccyx Iron deficiency anemia Ischemic cardiomyopathy Lumbar degenerative disc disease Obstructive sleep apnea Pacemaker Peripheral neuropathy Pressure ulcer, buttock Ventricular tachyarrhythmia s/p ICD 2013 Surgical History History of cholecystectomy History of colonoscopy 12/17/18 History of coronary artery stent placement History of esophagogastroduodenoscopy (EGD) 12/17/18 History of permanent cardiac pacemaker placement with defib Family History Father Heart disease Mother Heart disease Brother Alcoholism Social History Smoking/Tobacco Use Status: Current every day Tobacco Type: smokeless tobacco Counseling given: patient declined Smoking risk assessment performed?: Yes Alcohol Intake: former Drug use: Never Substance use type: does not use Details: Pt states he vapes daily current occupation: Retired What type of physical activity do you participate in: bicycling Frequency: 3-4 times per week Do you feel safe at home: Yes Do you feel safe in your relationship?: Yes Meds Allergies and Home Medications Allergies Allergy/AdvReac Type Severity Reaction Status Date / Time adhesive tape Allergy Unknown rash Verified 11/27/20 22:51 latex AdvReac Intermediate trouble Verified 11/27/20 22:51 breathing/moving Home Medications Medication Instructions Recorded Confirmed Type metformin [Glucophage] 1,000 mg PO BID@0800,1700 05/16/13 11/27/20 History multivitamin [Men's Multi-Vitamin] 1 ea PO DAILY 05/16/13 11/27/20 History zolpidem 10 mg PO HS PRN PRN 05/16/13 11/27/20 History lisinopril 10 mg PO QAM 12/06/13 11/27/20 History pantoprazole [Protonix] 40 mg PO HS 12/06/13 11/27/20 History Atorvastatin Calcium 80 mg PO HS tab-cap 11/24/16 11/27/20 History acetaminophen [Mapap Extra 500 mg PO PRN PRN 12/18/16 11/27/20 History Strength] Victoza 3-Ruddy 1.8 mg SQ HS 01/19/17 11/27/20 History aspirin 81 mg PO DAILY tab-cap 07/23/17 11/27/20 History tramadol 50 mg PO PRN PRN 07/24/17 11/27/20 History nitroglycerin 0.4 mg sublingual 0.4 mg SL Q5M PRN 01/31/19 11/27/20 History tablet cholecalciferol (vitamin D3) 50 2,000 unit PO DAILY 06/13/19 11/27/20 History mcg (2,000 unit) capsule rivaroxaban 20 mg tablet 20 mg PO DAILY #90 tab 09/06/19 11/27/20 Rx clonazepam 1 mg tablet 1 mg PO BID 09/21/19 11/27/20 History vilazodone 20 mg tablet 40 mg PO HS tab 09/21/19 11/27/20 History cyanocobalamin (vitamin B-12) 1,000 mcg PO DAILY 12/13/19 11/27/20 History 1,000 mcg tablet glipizide 5 mg tablet, extended 10 mg PO DAILY tab 07/09/20 11/27/20 History release 24 hr lamotrigine 100 mg tablet 250 mg PO DAILY tab 07/09/20 11/27/20 History magnesium oxide 800 mg PO TID tab 07/09/20 11/27/20 History metoprolol succinate 100 mg 150 mg PO BID #90 tab 09/25/20 11/27/20 Rx tablet,extended release 24 hr Exam Narrative Exam Narrative: General: Patient appears appropriate for age, in no acute distress and alert and oriented x3. He is a medium build and thin. HEENT: Normocephalic, thinning long pike hair, eyes with pupils equal and reactive to light symmetrically, extraocular movement intact and sclera anicteric. Neck: Supple without JVD or auscultated bruits. Back: Normal posture without CVA tenderness Lungs: Clear to auscultation and percussion. Heart: Regular rhythm with bradycardic rate. No appreciated murmurs or gallops. Abdomen: Normal contour, soft and nontender to palpation with no palpable hepatosplenomegaly. Bowel sounds positive in all quadrants. Genitalia/rectal: Exam deferred. Extremities: Without clubbing, cyanosis or pitting edema. Peripheral pulses intact. Skin: Pale, warm and dry. Neuro: Cranial nerves II through XII grossly intact, no focalizing motor deficits. No tremor. Psych: Normal affect and mood, no abnormal thought processes. Remote and recent memory intact. Results Imaging Imaging Studies: Exam: XR Chest Exam date and time: 11/27/2020 10:02 PM Age: 70 years old Clinical indication: Shortness of breath; Prior surgery; Surgery date: 6+ months; Surgery type: Pacemaker; Patient HX: SOB TECHNIQUE: Imaging protocol: XR of the chest. Views: 1 view. COMPARISON: CT Abdomen^CAP WITH (Adult) 04/22/2018 10:36 AM FINDINGS: Tubes, catheters and devices: Left approach pacer again noted. Leads project over the patient. There is a device projecting over the right heart. Lungs: Unremarkable. No consolidation. Pleural spaces: Unremarkable. No pleural effusion. No pneumothorax. Heart/Mediastinum: Unremarkable. No cardiomegaly. Bones/joints: Unremarkable. Soft tissues: Pad projects over the patient. IMPRESSION: No acute cardiopulmonary disease Labs Result diagrams: 11/28/20 05:10 11/28/20 05:10 Labs: Laboratory Results - last 24 hr 11/27/20 11/27/20 11/27/20 21:55 21:55 21:55 WBC 11.63 H RBC 5.19 Hgb 15.1 Hct 45.7 MCV 88.1 MCH 29.1 MCHC 33.0 RDW 13.3 Plt Count 211 MPV 9.3 Immature Gran % 0.6 Neutrophils % 63.9 Lymphocytes % 24.7 Monocytes % 7.4 Eosinophils % 2.9 Basophils % 0.5 Nucleated RBC % 0 Absolute Neutrophils 7.43 H Absolute Lymphocytes 2.87 Absolute Monocytes 0.86 H Absolute Eosinophils 0.34 Absolute Basophils 0.06 PT 13.3 H INR 1.3 H APTT 30.5 H Sodium 137 Potassium 5.1 Chloride 104 Carbon Dioxide 20.9 L Anion Gap 12.1 H BUN 17 Creatinine 1.4 H Estimated GFR/1.73 m2 49.96 Glucose 229 H Calcium 9.0 Magnesium 1.6 L Total Bilirubin 0.7 AST 48 H ALT 59 Alkaline Phosphatase 73 Troponin I < 0.05 Total Protein 7.5 Albumin 4.1 COVID-19 Source SARS-CoV-2 (PCR) 11/27/20 22:30 WBC RBC Hgb Hct MCV MCH MCHC RDW Plt Count MPV Immature Gran % Neutrophils % Lymphocytes % Monocytes % Eosinophils % Basophils % Nucleated RBC % Absolute Neutrophils Absolute Lymphocytes Absolute Monocytes Absolute Eosinophils Absolute Basophils PT INR APTT Sodium Potassium Chloride Carbon Dioxide Anion Gap BUN Creatinine Estimated GFR/1.73 m2 Glucose Calcium Magnesium Total Bilirubin AST ALT Alkaline Phosphatase Troponin I Total Protein Albumin COVID-19 Source Nasal/Nares SARS-CoV-2 (PCR) Negative Last Vital Signs Temp 36.1 C L 11/27/20 21:52 Pulse 77 11/27/20 23:21 Resp 14 11/27/20 23:21 BP 128/65 11/27/20 23:21 Pulse Ox 96 11/27/20 23:21
[2020-11-28] VITALS (73 sets, daily range): BP systolic 105–152; BP diastolic 50–84; PULSE 49–64; RESP 10–24; TEMP 36.1–36.7; O2SAT 92–99
[2020-11-28 01:50] LABS: Troponin I < 0.05 ng/mL (<0.06)
[2020-11-28 01:52] LABS: NT-proBNP 707 pg/mL (<300)
[2020-11-28] MEDS: Mylanta Suspension 30 ML CUP PO (02:18)
[2020-11-28] MEDS: Normal Saline Flush 10 ML SYR IVP ×2 (02:18→14:04)
--- NOTE | 2020-11-28 02:23 | NUR.NOTE ---
0100-Report called to NAHUN [place], ICUNursing Note:
--- NOTE | 2020-11-28 02:24 | NUR.NOTE ---
0120-To room 220 with NAHUN [place], ICUNursing Note:
[2020-11-28] MEDS: Zolpidem 10 MG TAB PO (02:25)
[2020-11-28 03:59] LABS: Troponin I < 0.05 ng/mL (<0.06)
[2020-11-28 05:43] LABS: Troponin I < 0.05 ng/mL (<0.06)
--- NOTE | 2020-11-28 08:12 | W.PM.PROGNOT ---
Date of Service Date of service: 11/28/20 Time of Service: 11:30 Assessment and Plan Assessment and plan (1) Ventricular tachycardia: Status: Resolved Assessment and plan: [place] [facility] [place] re[place]med to lower ATP threshold. Continue amidoarone gtt until discharge. At that point, convert to amiodarone 400 mg PO BID x 10 days and then start 400 mg daily. Will send rx today. (2) Dizziness: Status: Acute Assessment and plan: ?side effect of amiodarone. Will c/s PT to ensure the patient is safe to ambulate. This does not appear to be BPPV. (3) Atrial fibrillation: Status: Chronic Assessment and plan: AICD is programmed to differentiate between Afib and Vtach, per [employer] rep. Qualifiers: Atrial fibrillation type: paroxysmal Qualified Code(s): I48.0 - Paroxysmal atrial fibrillation (4) Obstructive sleep apnea: Status: Chronic Assessment and plan: Patient is supposed to be using a CPAP at night, but evidently has not been able to reorder his parts through [employer]. Will provide CPAP for sleep in-house. (5) Disequilibrium: Status: Chronic Assessment and plan: C/s PT. Chronic condition diagnosed by neuro as diabetic peripheral neuropathy (6) DVT prophylaxis: Status: Acute Assessment and plan: on xarelto (7) Discharge planning issues: Status: Acute Assessment and plan: Full code Continues to require hospitalization Total Critical Care Time 90 minutes. Subjective Subjective Interval history since last seen: Mr Hendrix endorses feeling dizzy. This is difference from his feeling of disequilibrium that he has been seeing his neurologist for. He has never been diagnosed with vertigo. Denies chest pains, shortness of breath, nausea. Converted to NSR at 22:23, no more Vtach since. AICD never fired. AICD was reprogrammed to lower the threshold for ATP for slow VT to 140, per recommendations of [place] [facility] [place] Has been in SB in the 50s. Amiodarone 0.5 mg/min. Completed 1 mg/min drip. Anxious. Exam Narrative Exam Narrative: General: Pleasant elderly male who appears younger than stated age, who does look like he is dizzy, A&Ox3 HEENT: EOMI, MMM Heart: RRR, no m/r/g Lungs: CTAB Abdomen: soft, nontender, nondistended Extremities: no edema BLE's Objective Last Vital Signs Temp 36.6 C 11/28/20 07:53 Pulse 55 L 11/28/20 06:00 Resp 13 11/28/20 07:53 BP 121/60 11/28/20 06:00 Pulse Ox 97 11/28/20 07:53 Laboratory Results - last 24 hr 11/27/20 11/27/20 11/27/20 21:55 21:55 21:55 WBC 11.63 H RBC 5.19 Hgb 15.1 Hct 45.7 MCV 88.1 MCH 29.1 MCHC 33.0 RDW 13.3 Plt Count 211 MPV 9.3 Immature Gran % 0.6 Neutrophils % 63.9 Lymphocytes % 24.7 Monocytes % 7.4 Eosinophils % 2.9 Basophils % 0.5 Nucleated RBC % 0 Absolute Neutrophils 7.43 H Absolute Lymphocytes 2.87 Absolute Monocytes 0.86 H Absolute Eosinophils 0.34 Absolute Basophils 0.06 PT 13.3 H INR 1.3 H APTT 30.5 H Sodium 137 Potassium 5.1 Chloride 104 Carbon Dioxide 20.9 L Anion Gap 12.1 H BUN 17 Creatinine 1.4 H Estimated GFR/1.73 m2 49.96 Glucose 229 H Calcium 9.0 Magnesium 1.6 L Total Bilirubin 0.7 AST 48 H ALT 59 Alkaline Phosphatase 73 Troponin I < 0.05 NT-Pro-B Natriuret Pep Total Protein 7.5 Albumin 4.1 COVID-19 Source SARS-CoV-2 (PCR) 11/27/20 11/28/20 11/28/20 22:30 00:45 01:00 WBC RBC Hgb Hct MCV MCH MCHC RDW Plt Count MPV Immature Gran % Neutrophils % Lymphocytes % Monocytes % Eosinophils % Basophils % Nucleated RBC % Absolute Neutrophils Absolute Lymphocytes Absolute Monocytes Absolute Eosinophils Absolute Basophils PT INR APTT Sodium Potassium Chloride Carbon Dioxide Anion Gap BUN Creatinine Estimated GFR/1.73 m2 Glucose Calcium Magnesium Total Bilirubin AST ALT Alkaline Phosphatase Troponin I < 0.05 Cancelled NT-Pro-B Natriuret Pep Total Protein Albumin COVID-19 Source Nasal/Nares SARS-CoV-2 (PCR) Negative 11/28/20 11/28/20 11/28/20 01:20 03:20 05:10 WBC RBC Hgb Hct MCV MCH MCHC RDW Plt Count MPV Immature Gran % Neutrophils % Lymphocytes % Monocytes % Eosinophils % Basophils % Nucleated RBC % Absolute Neutrophils Absolute Lymphocytes Absolute Monocytes Absolute Eosinophils Absolute Basophils PT INR APTT Sodium Potassium Chloride Carbon Dioxide Anion Gap BUN Creatinine Estimated GFR/1.73 m2 Glucose Calcium Magnesium Total Bilirubin AST ALT Alkaline Phosphatase Troponin I < 0.05 < 0.05 NT-Pro-B Natriuret Pep 707 H Total Protein Albumin COVID-19 Source SARS-CoV-2 (PCR)
[2020-11-28 08:31] LABS: ALT 52 U/L (16-63); AST 42 U/L (15-37); Albumin 3.5 g/dL (3.4-5.0); Alkaline Phosphatase 57 U/L (46-116); Anion Gap 8.4 mmol/L (3-11); BUN 17 mg/dL (7-18); Bilirubin, Total 0.4 mg/dL (0.2-1.0); CO2 24.6 mmol/L (21.0-32.0); Calcium 8.5 mg/dL (8.5-10.1); Chloride 107 mmol/L (98-107); FREE T4 1.03 ng/dL (0.76-1.46); Glucose 111 mg/dL (74-106); Magnesium 2.2 mg/dL (1.8-2.4); Potassium 4.1 mmol/L (3.5-5.1); Sodium 140 mmol/L (136-145); TSH 1.41 uIU/mL (0.36-3.74); Total Protein 6.5 g/dL (6.4-8.2)
[2020-11-28 08:37] LABS: Abs Immature Grans 0.03 10^3/uL (0.0-0.06); Absolute Basophil Count 0.05 10^3/uL (0.0-0.2); Absolute Eosinophil Count 0.34 10^3/uL (0.0-0.7); Absolute Lymphocyte Count 2.84 10^3/uL (1.2-3.4); Absolute Monocyte Count 0.58 10^3/uL (0.1-0.8); Absolute Neutrophil Count 4.33 10^3/uL (1.2-6.7); Basophils % 0.6; Eosinophils % 4.2; HCT 41.2 % (40.0-50.0); HGB 13.5 g/dL (13.5-17.5); Immature Grans % 0.4; Lymphocytes % 34.8; MCH 29.3 pg (27.0-33.0); MCHC 32.8 % (32.0-36.0); MCV 89.4 fL (80-95); MPV 9.7 fL (8.0-11.0); Monocytes % 7.1; Neutrophils % 52.9; Nucleated RBC 0 %; Platelet Count 154 10^3/uL (130-400); RBC 4.61 10^6/uL (4.36-5.78); RDW 13.6 % (11.8-14.1); WBC 8.17 10^3/uL (4.4-10.8)
[2020-11-28] MEDS: Multivitamin TAB 1 TAB PO (08:53)
[2020-11-28] MEDS: Cholecalciferol (Vitamin D3) 1,000 UNIT TAB 2000 UNITS PO (08:53)
[2020-11-28] MEDS: Rivaroxaban 10 MG TABLET 20 MG PO (08:54)
[2020-11-28] MEDS: Cyanocobalamin 500 MCG TAB 1000 MCG PO (08:55)
[2020-11-28] MEDS: Lisinopril 10 MG TAB PO (08:59)
[2020-11-28] MEDS: Magnesium Oxide 400 MG TAB 800 MG PO ×3 (09:00→20:05)
[2020-11-28] MEDS: traMADol 50 MG TAB PO (09:00)
[2020-11-28] MEDS: clonazePAM 1 MG TAB PO ×2 (09:02→20:05)
[2020-11-28] MEDS: Aspirin 81 MG CHEW PO (09:03)
[2020-11-28] MEDS: lamoTRIgine 100 MG TAB 250 MG PO (09:03)
--- NOTE | 2020-11-28 09:57 | INITIAL_ITS ---
- If Service Date Differs Date of service: 11/28/20 Time of Service: 09:57 Care Management Initial Assess REASON FOR HOSPITALIZATION:: V-tach PAST MEDICAL HISTORY/PAST SURGICAL HISTORY:: Medical History . Anal fissure. Atrial fibrillation. CAD (coronary artery disease). Chronic pain. Clinical depression. Diabetes. Esophageal ring. GERD (gastroesophageal reflux disease). Hammer toe. Hiatal hernia. H yperlipidemia. pt. states its a fissure near his coccyx. Iron deficiency anemia. Ischemic cardiomyopathy. Lumbar degenerative disc disease. Obstructive sleep apnea. Pacemaker. Peripheral neuropathy. Pressure ulcer, buttock. Ventricular tachyarrhythmia. s/p ICD 2013. Surgical History . History of cholecystectomy. History of colonoscopy. 12/17/18. History of coronary artery stent placement. History of esophagogastroduodenoscopy (EGD). 12/17/18. History of permanent cardiac pacemaker placement. with defib PREVIOUS FUNCTIONAL STATUS/SOCIAL/FAMILY SUPPORTS:: Pato lives alone in an apartment in [place], [place] He has one daughter, Nkechi, who is currently living and working in [place]. Pato is . His of a pulmonary embolus and sepsis in 2009 in [place] where they were living at the time. 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 He is independent at baseline but does admit to having some balance issues. CURRENT FUNCTIONAL STATUS:: Pato was sitting up in bed when CM met with him. He was pleasant in interaction and engaged well with CM.Pato shared a lot of information about his and their relationship and the course of her illness. She about a month after developing a DVT which then went to her lungs. During the course of her workup it was discovered that she had metastatic lung cancer but she was never treated for it. Pato talked about his struggles with loneliness and depression following her which led to his move to [place] to be closer to family. ADVANCE DIRECTIVES:: On file. Nkechi Macias is [facility] Has patient been provided with info about the portal/API?: Yes Did the patient sign up for the portal?: No CODE STATUS:: Full Code INSURANCE COVERAGE / FINANCIAL ISSUES:: [facility] ([facility] replacement) CURRENT HOME/COMMUNITY SERVICES/EQUIPMENT:: none currently PRIMARY CARE PHYSICIAN:: Dewayne Carrington POTENTIAL DISCHARGE NEEDS:: Follow up with PCP and plan of care PATIENT/FAMILY EDUCATION NEEDS:: review of discharge instructions, medications, activity, follow up care, Ask Me Three TRANSPORTATION:: via private vehicle with family PLAN:: Pato will likely be discharged home with no new services. He will follow up with his community providers and plan of care and transport with family. CM will continue to support Pato and assess for discharge planning needs.
--- NOTE | 2020-11-28 10:31 | NUR.NOTE ---
Dr. Perez advised to call [phone] to schedule for a quality audit representative to come to ICU to reprogram patient's ICD. Phone call was made and Js from [employer] called to state that Slim Omer would be coming from [facility] to work on the ICD. Patient was advised of the plan and Dr. Perez was updated.
[2020-11-28] MEDS: Insulin Aspart 300 UNITS/3 ML PEN SC ×3 (12:13→21:59)
--- NOTE | 2020-11-28 15:28 | PHACLINREV_ITS ---
Pharmacy Admission Review - Admission Clinical Review (Last Reviewed 11/27/20 @ 23:58 by Bony Harris) Ventricular tachycardia (Acute) adhesive tape Allergy (Unknown, Verified 11/27/20 22:51) rash latex Adverse Reaction (Intermediate, Verified 11/27/20 22:51) trouble breathing/moving Resuscitation Status Full Code Height 6 ft 1.5 in Weight 87.1 kg - Renal Dosing Renal Dosing: BUN 17 mg/dL (7-18) 11/28/20 05:10 Creatinine 1.0 mg/dL (0.70-1.30) 11/28/20 05:10 Medications needing adjustments: Reviewed - Anticoagulation Anticoagulation: Hgb 13.5 g/dL (13.5-17.5) 11/28/20 05:10 Hct 41.2 % (40.0-50.0) 11/28/20 05:10 Plt Count 154 10^3/uL (130-400) 11/28/20 05:10 INR 1.3 (0.9-1.1) H 11/27/20 21:55 Creatinine 1.0 mg/dL (0.70-1.30) 11/28/20 05:10 Therapeutic Anticoagulation: Reviewed Medications: Rivaroxaban - Opiate Usage Evaluate Pain Scale/Pains Meds: Reviewed Scheduled Bowel Reg ordered if on Opiates?: Yes - Relevant Labs Sodium 140 mmol/L (136-145) 11/28/20 05:10 Potassium 4.1 mmol/L (3.5-5.1) 11/28/20 05:10 Chloride 107 mmol/L (98-107) 11/28/20 05:10 Magnesium 2.2 mg/dL (1.8-2.4) 11/28/20 05:10 Electrolytes, C-Reactive P, ESR: Reviewed - DM Control DM Control: Glucose 111 mg/dL (74-106) H D 11/28/20 05:10 Finger Stick Blood Glucose 195 Finger Stick Blood Glucose 195 Finger Stick Blood Glucose 91 Finger Stick Blood Glucose 91 Finger Stick Blood Glucose 91 Insulin Dosing: Reviewed (aspart per ss ordered (glipizide and viztoza at home)) - Heart Failure/AR Heart Failure/AR: Troponin I < 0.05 ng/mL (<0.06) 11/28/20 05:10 NT-Pro-B Natriuret Pep 707 pg/mL (<300) H 11/28/20 01:20 EF%, JESSE's, B-Blockers, Diuretics: Reviewed - BP Control BP Control: Blood Pressure 126/57 Blood Pressure 130/64 Blood Pressure 125/61 Blood Pressure 109/54 Blood Pressure 111/50 Blood Pressure 109/68 Blood Pressure 125/67 Blood Pressure 133/57 Blood Pressure 121/60 Blood Pressure 120/60 Blood Pressure 112/61 If elevated: Reviewed - Qtc Review List meds needing interventions: QTc 595 on admission (prior to admin of amiodarone gtt...) - IV to PO Switch IV Medications: Reviewed - Home Meds Home Med List reviewed: Intervened Relevent Home Meds Not ordered & why?: all ordered except ODAs (has aspart per ss ordered) -- did adjust dosing on two meds to match recently filled rxs -- ma g-ox should be 800mg BID (not TID) and clonazepam should be TID PRN (not BID), will notify md - Current meds Current Medication Order Review: Intervened (adjusted amiodarone order so documentation reflected dose that correlates with rate)
[2020-11-28] MEDS: Atorvastatin 40 MG TAB 80 MG PO (21:58)
[2020-11-28] MEDS: Pantoprazole 40 MG TABCR PO (21:58)
[2020-11-29] VITALS (36 sets, daily range): BP systolic 105–141; BP diastolic 53–94; PULSE 53–67; RESP 9–21; TEMP 36.4–36.7; O2SAT 94–97
[2020-11-29] MEDS: Zolpidem 10 MG TAB PO
[2020-11-29] MEDS: Docusate Sodium 100 MG CAP PO
--- NOTE | 2020-11-29 | DI.US_ITS ---
APPROVED REPORT EXAM: Comprehensive 2D, Doppler, and color-flow Echocardiogram Patient Location: In-Patient Room/Bed: [id number] Roof Foreman: Paige Bernard RDCS (AE) Indications: V Tach, AICD, A Fib, ICM Other Information Study Quality: Fair. Technically limited study due to device placement. Conclusion Left Ventricle : External defibrillator is in place making parasternal views unattainable. Left ventr icular systolic function is mildly decreased. There is normal left ventricular wall thickness. There is global hypokinesis of the left ventricle. LVEF is 48%. Right Ventricle : Right ventricle is not well visualized. Right ventricular systolic function could n ot be assessed. The RVSP is 29.5 mmHg. Atria : The left atrium size is normal. Right atrium is not well visualized. Aortic Valve : The aortic valve is normal in structure. Trace aortic regurgitation. There is no aorti c valvular stenosis. Mitral Valve : The mitral valve is normal in structure. Trace mitral regurgitation. No evidence of mi tral valve stenosis. Great Vessels : Aortic root is not visualized. Ascending aorta is not visualized. IVC is normal in si ze and collapses >50% with inspiration. Compared to study from [facility] in 2017, there is no significant change. Wall motion Left Ventricle External defibrillator is in place making parasternal views unattainable. Left ventricular systolic f unction is mildly decreased. There is normal left ventricular wall thickness. There is global hypokin esis of the left ventricle. There is no ventricular septal defect visualized. LVEF is 48%. Right Ventricle Right ventricle is not well visualized. Right ventricular systolic function could not be assessed. Th e RVSP is 29.5 mmHg. Device lead is present in the right ventricle. Atria The left atrium size is normal. Right atrium is not well visualized. The interatrial septum is intact with no evidence for an atrial septal defect. Aortic Valve The aortic valve is normal in structure. There is no aortic valvular stenosis. Trace aortic regurgita tion. Mitral Valve The mitral valve is normal in structure. No evidence of mitral valve stenosis. Trace mitral regurgita tion. Tricuspid Valve The tricuspid valve is normal in structure. There is no tricuspid valve stenosis. Trace tricuspid reg urgitation. Pulmonic Valve Pulmonic valve is not well visualized. Great Vessels Aortic root is not visualized. Ascending aorta is not visualized. IVC is normal in size and collapses >50% with inspiration. Pericardium There is no pericardial effusion. 2D Dimensions LVEF (Paz's) 45.47 % M: 52 - 72 LV Vol A2C d MOD 145.0 mL LV Volume 142.48 mL M: 62 - 150 LV Vol A4C d MOD 133.9 mL LV Volume Index 67.52 mL/m2 M: 34 - 74 LA Area A4C s MOD 24.07 cm2 LV Vol Biplane MOD 142.5 mL LA Area A2C s MOD 23.32 cm2 LV EF A4C MOD 48.3 % LV EF A2C MOD 49.0 % LV EF Biplane MOD 45.5 % SV 64.79 mL LV Diastology MV E' medial 0.067 (>0.07 m/s) E/A Ratio 1.0 LV E/e MED 7.90 (<14) MV E Vmax 0.53 (0.4-1.3 m/s) MV E' lateral 0.051 (>0.1 m/s) MV A Vmax 0.55 (0.4-1.3 m/s) LV E/e LAT 10.25 (<14) MV E/A Ratio 0.95 MV E/E' medial 7.90 MV E/E' lateral 10.29 Aortic Valve LVOT Vmax 0.90 m/s LVOT Mean Maco. 0.59 m/s LVOT Peak Grad 3.2 mmHg LVOT Mean Grad 1.7 mmHg LVOT VTI 0.225 m AoV Vmax 1.03 m/s Velocity Ratio 0.87 AoV Mean Maco. 0.77 m/s AoV Peak Grad 4.2 mmHg AoV Mean Grad 2.6 mmHg AoV VTI 0.241 m Mitral Valve MV DT 323 (160-240 msec) MV PHT 94 msec MV Area PHT 2.35 cm2 MV VTI 0.301 m MV VTI Annulus 0.307 m Tricuspid Valve TR Peak Grad 26.4 mmHg TR Vmax 2.57 m/s RA Pressure 3.00 mmHg RVSP (TR) 29.5 mmHg
--- NOTE | 2020-11-29 07:33 | W.PM.PROGNOT ---
Subjective Subjective Interval history since last seen: Amio 0.5 mg/min. Atrial paced, HR 55. BP 121/58. No arrhythmias overnight. echo this am. Objective Last Vital Signs Temp 36.4 C L 11/29/20 00:00 Pulse 55 L 11/29/20 06:00 Resp 14 11/29/20 06:01 BP 114/58 L 11/29/20 06:00 Pulse Ox 94 11/29/20 00:00 Laboratory Results - last 24 hr 11/28/20 11/28/20 11/28/20 01:00 05:10 05:10 WBC 8.17 RBC 4.61 Hgb 13.5 Hct 41.2 MCV 89.4 MCH 29.3 MCHC 32.8 RDW 13.6 Plt Count 154 MPV 9.7 Immature Gran % 0.4 Neutrophils % 52.9 Lymphocytes % 34.8 Monocytes % 7.1 Eosinophils % 4.2 Basophils % 0.6 Nucleated RBC % 0 Absolute Neutrophils 4.33 Absolute Lymphocytes 2.84 Absolute Monocytes 0.58 Absolute Eosinophils 0.34 Absolute Basophils 0.05 Sodium 140 Potassium 4.1 Chloride 107 Carbon Dioxide 24.6 Anion Gap 8.4 BUN 17 Creatinine 1.0 Estimated GFR/1.73 m2 >= 60.00 Glucose 111 H D Calcium 8.5 Magnesium 2.2 Total Bilirubin 0.4 AST 42 H ALT 52 Alkaline Phosphatase 57 Troponin I Cancelled Total Protein 6.5 Albumin 3.5 TSH 1.41 Free T4 1.03
[2020-11-29 07:49] LABS: Anion Gap 8.1 mmol/L (3-11); BUN 15 mg/dL (7-18); CO2 25.9 mmol/L (21.0-32.0); CREATININE 0.8 mg/dL (0.70-1.30); Calcium 8.9 mg/dL (8.5-10.1); Chloride 105 mmol/L (98-107); Glucose 169 mg/dL (74-106); Magnesium 1.7 mg/dL (1.8-2.4); Potassium 3.8 mmol/L (3.5-5.1); Sodium 139 mmol/L (136-145)
[2020-11-29] MEDS: Cholecalciferol (Vitamin D3) 1,000 UNIT TAB 2000 UNITS PO (08:49)
[2020-11-29] MEDS: clonazePAM 1 MG TAB PO ×2 (08:50→14:10)
[2020-11-29] MEDS: lamoTRIgine 100 MG TAB 250 MG PO (08:50)
[2020-11-29] MEDS: Rivaroxaban 10 MG TABLET 20 MG PO (08:52)
[2020-11-29] MEDS: Multivitamin TAB 1 TAB PO (08:53)
[2020-11-29] MEDS: Magnesium Chloride 64 MG TABCR 128 MG PO (08:53)
[2020-11-29] MEDS: traMADol 50 MG TAB PO (08:54)
[2020-11-29] MEDS: Aspirin 81 MG CHEW PO (08:54)
[2020-11-29] MEDS: Lisinopril 10 MG TAB PO (08:54)
[2020-11-29] MEDS: Cyanocobalamin 500 MCG TAB 1000 MCG PO (08:55)
[2020-11-29] MEDS: Insulin Aspart 300 UNITS/3 ML PEN SC ×2 (08:59→11:30)
[2020-11-29] MEDS: Normal Saline Flush 10 ML SYR IVP (09:28)
[2020-11-29] MEDS: Normal Saline 500 ML 30 ML IV (09:29)
[2020-11-29] MEDS: MAGNESIUM SULFATE 2 GM/50 ML BAG IVPB (09:30)
--- NOTE | 2020-11-29 10:20 | PDOC.CMPRO ---
- If Service Date Differs Date of service: 11/29/20 Time of Service: 10:20 Care Management Progress Note S/O: A: Pato is a 70 year old man admittews om11/27/20 with sustained v-tach P:Pato will likely be discharged home with no new services. He will follow up with his community providers and plan of care and transport with family. CM will continue to support Pato and assess for discharge planning needs.
--- NOTE | 2020-11-29 10:35 | PT.INIE ---
Date of service: 11/29/20 Time of Service: 10:35 PT Notes Visit Reasons: Sustained V. tach Physical Therapy Inpatient Initial Evaluation Date: 11/29/2020 Referring Doctor: Jessica Moody MD PT Orders: PT CONSULT: Limited ability Precautions: Fall. Standard. Activity as tolerated. ICD in situ. Patient Profile/Admitting Diagnosis: Marquez is a 70-year-old male who presented to the ED on 11/27/2020 with shortness of breath, general ill feeling of lightheadedness, and generalized weakness. Patient is diagnosed with ventricular tachycardia, atrial fibrillation, hypertension, diet is mellitus, coronary artery is, obstructive sleep apnea, and disequilibrium. PMHX: Medical History Anal fissure Atrial fibrillation CAD (coronary artery disease) Chronic pain Clinical depression Diabetes Esophageal ring GERD (gastroesophageal reflux disease) Hammer toe Hiatal hernia Hyperlipidemia pt. states its a fissure near his coccyx Iron deficiency anemia Ischemic cardiomyopathy Lumbar degenerative disc disease Obstructive sleep apnea Pacemaker Peripheral neuropathy Pressure ulcer, buttock Ventricular tachyarrhythmia s/p ICD 2013 Surgical History History of cholecystectomy History of colonoscopy 12/17/18 History of coronary artery stent placement History of esophagogastroduodenoscopy (EGD) 12/17/18 History of permanent cardiac pacemaker placement with defib Social History/Home Situation: Lives alone in a private home with 5 steps to enter. Independent with all activities of daily living without an assistive device. Patient states that although he has not hit the ground he has had near falls onto the couch and on tools about once a month. Still drives. 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 Equipment Owned/DME: None Subjective: Patient indicates that although he has not hit the ground in the past year, he has had near falls onto the couch and on to dawson about once a month. He has sustained no injuries from these episodes. He reports that if his head is down while walking he tends to veer to the side but when he looks up, there is no issue. He has several episodes of wandering in the past but he has been able to self-correct and prevent an actual fall. He still reports some lightheadedness and appeared a little shaky at the start but became better with ambulation activity with longer distance. No headache, no chest pain, no nausea. Objective: General Observation: Telemetry monitoring in place. IV in the R UE. Mental Status: Alert and oriented as to person, place, time, and purpose. Able to pay attention, focus, and respond appropriately. Pain: 0/10 Vital Signs: WNL as closely monitored by tele ROM: Right Upper Extremity: Shoulder Flexion WFL. Shoulder abduction WFL. Elbow flexion WFL. Wrist flexion WFL. Functional opening and closing of hand WFL. Left Upper Extremity: Shoulder Flexion lacks the last 25% of active ROM. Shoulder abduction lacks the last 25% of active ROM. Elbow flexion WFL. Wrist flexion WFL. Functional opening and closing of hand WFL. Right Lower Extremity: Hip flexion WFL. Hip abduction WFL. Knee flexion WFL. Ankle dorsiflexion WFL. Ankle plantarflexion WFL. Left Lower Extremity: Hip flexion WFL. Hip abduction WFL. Knee flexion WFL. Ankle dorsiflexion WFL. Ankle plantarflexion WFL. Strength: Right Upper Extremity: Shoulder flexors 5/5. Shoulder abductors 5/5. Elbow flexors 5/5. Elbow extensors 5/5. Sports Development Officer strong. Left Upper Extremity: Shoulder flexors 3-/5. Shoulder abductors 3-/5. Elbow flexors 4/5. Elbow extensors 5/5. Sports Development Officer strong. Right Lower Extremity: Hip flexors 5/5. Hip abductors 5/5. Knee flexors 5/5. Knee extensors 5/5. Ankle dorsiflexors 5/5. Ankle plantarflexors 5/5. Left Lower Extremity: Hip flexors 4-/5. Hip abductors 4-/5. Knee flexors 5/5. Knee extensors 5/5. Ankle dorsiflexors 5/5. Ankle plantarflexors 5/5. Bed Mobility/Transfers: Rolling independent Supine to sit independent Sit to supine independent Sit to stand standby assist Stand to sit standby assist Gait: Instructed patient with level surface ambulation of 350 feet requiring standby assist. No path deviation seen. There was shaking in both legs at the start but became much more stable with longer distances. Balance: Static Sitting: Normal Dynamic Sitting: Normal Static Standing: Good Dynamic Standing: Good Special Tests: Mobility Limitations Standardized Measure [employer] AM-PAC 6 clicks Basic Mobility Inpatient Short Form: Raw Score: 24 CMS Score: 0% deficit 4-Stage Balance Test: Unable to hold semi-tandem, full tandem, and one-legged stance for 10 seconds. Okay with feet together for 10 seconds. Romberg Test: Positive. Patient demonstrated excessive swaying and appeared to be falling to the left if he was not stabilized by PT. Rapid alternating movement: Intact Informed Consent/Education: Patient was instructed in purpose of PT consult and plan of care. Agreeable to proceed with established PT POC to achieve personal goals. Assessment: Further work up may be needed to assess root cause of possible sensory ataxia from positive Romberg Test. Patient will benefit from neuromotor exercises focusing on balance and coordination as an outpatient. Spoke with patient about reaching out to PCP about referral to OP PT for management of balance issues to reduce fall risk. Patient presents with clinical signs and symptoms consistent with current/admitting diagnoses that have resulted to mobility limitations, gait instability, generalized weakness, and overall ADL decline as demonstrated by the following impairment level findings: 1. Decreased strength to L shoulder major muscle groups 2. Impaired standing balance 3. Limitation of joint range of motion in 4. Positive Romberg Test Impairments are contributing to the following functional limitations: 1. Increased completion time for mobility ADL performance 2. Increased risk for falls 3. Difficulty with managing steps alone safely Patient is assessed as a complexity based on the following: History: 70-year-old male with past medical history as indicated above Examination: Demonstrable impairment in strength, balance, and mobility level with underlying impairments and functional limitations as exhibited above as well as deficit score of 0% utilizing the [facility] Mobility Inpatient Short Form Presentation: Stable Decision Makin low complexity Goals: Goals X1 week N/A PT evaluation 1 treatment session only Plan of Care/Treatment Plan: N/A PT evaluation 1 session only DISCHARGE RECOMMENDATIONS: Home when medically cleared by hospitalist. Outpatient PT services for neuromotor exercises and vestibular rehabilitation to reduce fall risk. TREATMENT CODE/TIME: 05864 x 20 minutes, 22099 x 25 minutes beginning at 10:35 AM. Thank you for the opportunity to participate in the care of this patient. Kristi Hurtado PT, DPT, CLT [facility] [place], [place]
--- NOTE | 2020-11-29 11:41 | CCONE_ITS ---
Date of service: 11/29/20 Time of Service: 11:42 Assessment and Plan Assessment and plan (1) Ventricular tachycardia: Status: Resolved (2) Atrial fibrillation: Status: Chronic Assessment and plan: 1. Ventricular tachycardia: This is not the first time this patient has gone through this but unfortunately his ICD did not treat him given that the rate was so low. He was cardioverted and is now on amiodarone. ?Continue amiodarone load with a goal of 10 g. This can be completed as an outpatient after 24 hours of IV. ?He has a known history of CAD and should get an ischemic evaluation but he has ruled out for ACS and has no concerning symptoms of angina. I do think he should probably have an ischemic evaluation given his history of CAD but in my discussion with his EP team, they will make that decision at his follow-up appointment. ?Please replete his magnesium ?Continue beta-blockade ?The patient has follow-up with his iv rn on the of this month. 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 feeling poorly. There he was found to be in VT. The rate of his VT (150 bpm) unfortunately was lower than his VT detection zone which was set at 155 bpm. He did not receive a shock from his device. He was however cardioverted due to hypotension. He has since been loaded with amiodarone. His electrolytes were not particularly abnormal though he did have a slightly low magnesium. He had a slightly elevated BNP and did not show any troponin bump. His echocardiogram was unrevealing. This morning he feels well. He is in normal sinus rhythm with no chest pain lightheadedness or dizziness. He says he is preparing to go home. Review of Systems All systems reviewed & are unremarkable except as noted in HPI and below PFSH Medical History Anal fissure Atrial fibrillation CAD (coronary artery disease) Chronic pain Clinical depression Diabetes Esophageal ring GERD (gastroesophageal reflux disease) Hammer toe Hiatal hernia Hyperlipidemia pt. states its a fissure near his coccyx Iron deficiency anemia Ischemic cardiomyopathy Lumbar degenerative disc disease Obstructive sleep apnea Pacemaker Peripheral neuropathy Pressure ulcer, buttock Ventricular tachyarrhythmia s/p ICD 2013 Surgical History History of cholecystectomy History of colonoscopy 12/17/18 History of coronary artery stent placement History of esophagogastroduodenoscopy (EGD) 12/17/18 History of permanent cardiac pacemaker placement with defib Family History Father Heart disease Mother Heart disease Brother Alcoholism Social History Smoking/Tobacco Use Status: Current every day Tobacco Type: smokeless tobacco Counseling given: patient declined Smoking risk assessment performed?: Yes Alcohol Intake: former Drug use: Never Substance use type: does not use Details: Pt states he vapes daily current occupation: Retired What type of physical activity do you participate in: bicycling Frequency: 3-4 times per week Do you feel safe at home: Yes Do you feel safe in your relationship?: Yes Exam Const General: comfortable and no acute distress HENMT Head: normocephalic and atraumatic Eyes General: appearance normal, both eyes and all related structures Resp Effort & Inspection: normal respiratory effort Auscultation: clear to auscultation bilaterally Cardio Jugular venous pressure: no JVD Palpation: normal PMI Rate: regular rate Rhythm: regular rhythm Heart Sounds: S1 normal and S2 normal (No Murmurs, Rubs or Gallops) GI Palpation: soft Auscultation: normoactive bowel sounds Skin General skin exam: no rashes or lesions noted Extrem General: normal to inspection and no clubbing, cyanosis or edema Psych Appearance: grossly normal Results Last Vital Signs Temp 36.6 C 11/29/20 08:15 Pulse 55 L 11/29/20 06:00 Resp 17 11/29/20 08:15 BP 114/58 L 11/29/20 06:00 Pulse Ox 97 11/29/20 08:15 Labs Result diagrams: 11/28/20 05:10 11/29/20 06:26 Labs: Laboratory Results - last 24 hr 11/29/20 06:26 Sodium 139 Potassium 3.8 Chloride 105 Carbon Dioxide 25.9 Anion Gap 8.1 BUN 15 Creatinine 0.8 Estimated GFR/1.73 m2 >= 60.00 Glucose 169 H Calcium 8.9 Magnesium 1.7 L
--- NOTE | 2020-11-29 12:37 | DSE_ITS ---
Date of service: 11/29/20 Time of Service: 12:37 DS: Diagnosis Discharge Diagnosis (1) Ventricular tachycardia: Status: Resolved (2) Atrial fibrillation: Status: Chronic (3) Ischemic cardiomyopathy: Status: Chronic (4) Hypomagnesemia: Status: Acute (5) Peripheral neuropathy: Status: Chronic (6) Obstructive sleep apnea: Status: Chronic (7) COVID-19 ruled out by laboratory testing: Status: Ruled-out Discharge Plan Disposition Patient Disposition: HOME Condition: Stable Discharge Details Reason For Visit: Sustained V. tach Admit Date/Time: 11/27/20 23:45 Admit Provider: Bony Harris Attending Provider: Bony Harris Primary Care Provider: Dewayne Carrington [facility] Course: Mr Hendrix is a 70 year old male with PMHx of ICMO and prior ventricular arrhythmias, s/p AICD, as well as paroxysmal Afib on xarelto, CAD, HTN, hyperlipidemia, who was admitted to [facility] ICU on 11/27/20 under the hospitalist service for ventricular tachycardia. His heart rates were around 140s-150s, under the ATP threshold for slow VT program of the ICD. The patient required cardioversion in the ED and was initiated on amiodarone drip. Attempts to transfer to [facility], where the patient gets his cardiac care, were made on several occasions, but no beds were available. The patient did convert to NSR on his first night with us. [facility] electrophysiology consult was sought, and Dr Matos had recommended adjusting the ATP slow VT threshold down to 140, which was done by a [employer] rep on 11/28/20. At this point, the patient is hemodynamically stable and asymptomatic. He is stable for discharge home today with follow up with Dr Matos on December 12 at 10:[address] Zabala recommends consideration of outpatient ischemic workup - MPI vs cath, but would like to leave this up to Electrophysiology. The patient is being switched to amiodarone 400 mg PO BID x 10 days, followed by 400 mg PO daily. The patient was not able to tolerate beta blockers while on amiodarone drip, but metoprolol may be able to be resumed later. His insurance denied his prior authorization for this dose, which is currently being appealed. He is getting a 5 day supply of amiodarone from our pharmacy on discharge and a script is also being sent to [facility] for the patient to be able to get his prescription there cheaper. Care for patient as well as completion of his discharge summary took 45 minutes on the day of discharge. Home Meds and New Rx's Prescriptions: New amiodarone 200 mg tablet See Rx Instructions .ROUTE .COMPLEX Qty: 80 RF: 0 magnesium chloride [Mag 64] 64 mg Tablet,Delayed Release (Dr/Ec) 128 mg PO BID Qty: 120 RF: 0 Continued nitroglycerin 0.4 mg tablet, sublingual 0.4 mg SL Q5M PRNRF: 0 glipizide 5 mg tablet extended release 24hr 10 mg PO DAILY RF: 0 Viibryd 20 mg tablet 40 mg PO HS RF: 0 clonazepam 1 mg tablet 1 mg PO TID PRNRF: 0 cyanocobalamin (vitamin B-12) [Vitamin B-12] 1,000 mcg tablet 1,000 mcg PO DAILY RF: 0 aspirin 81 MG tablet,chewable 81 mg PO DAILY RF: 0 cholecalciferol (vitamin D3) [Vitamin D3] 50 mcg (2,000 unit) capsule 2,000 unit PO DAILY RF: 0 Xarelto 20 mg tablet 20 mg PO DAILY Qty: 90 RF: 3 multivitamin [Men's Multi-Vitamin] 1 EACH tablet 1 ea PO DAILY RF: 0 metformin [Glucophage] 1,000 MG tablet 1,000 mg PO BID@0800,1700 RF: 0 zolpidem 10 MG tablet 10 mg PO HS PRN PRNRF: 0 lamotrigine 100 mg tablet 250 mg PO DAILY RF: 0 pantoprazole [Protonix] 20 MG tablet,delayed release (DR/EC) 40 mg PO HS RF: 0 lisinopril 10 MG tablet 10 mg PO QAM RF: 0 acetaminophen [Mapap Extra Strength] 500 MG tablet 500 mg PO PRN PRNRF: 0 Victoza 3-Ruddy 0.6 MG/0.1 ML pen injector 1.8 mg SQ HS RF: 0 tramadol 50 MG tablet 50 mg PO PRN PRNRF: 0 atorvastatin 80 mg tablet 80 mg PO HS RF: 0 Discontinued metoprolol succinate 100 mg tablet extended release 24 hr 150 mg PO BID Qty: 90 RF: 6 magnesium oxide 400 mg magnesium tablet 800 mg PO BID RF: 0 Discharge Instructions Instructions: Amiodarone (By mouth) Additional Instructions: Return to the hospital with any fever, bleeding, chest pain, shortness of breath, or any AICD discharges. Follow up with [facility] electrophysiology as scheduled below. Arrive 20 minutes before your appointment. Referrals: Fantasma Matos [ NON-[facility] STAFF PHYSICIAN] - 12/12/20 10:40 am Dewayne Carrington [Primary Care Provider] - Activity:: Activity as Tolerated Equipment/Supplies:: No Equipment Needed Diet:: As Tolerated Discharge Orders Discharge Orders: Discharge Order (Routine); Ordered 11/29/20 Ordered By: Jessica Moody DS: Summary Time Spent with Patient providing and/or coordinating discharge services: Greater than 30 minutes Status at Discharge Functional status at discharge: independent ambulation Overall status at discharge: patient is back to baseline Mental Status: mental status grossly normal Speech and Movement: speech and movement normal Mood: congruent mood Affect: normal affect Exam Narrative Exam Narrative: General: Pleasant elderly male who appears younger than stated age, A&Ox3, looks well HEENT: EOMI, MMM Heart: RRR, no m/r/g Lungs: CTAB Abdomen: soft, nontender, nondistended Extremities: no edema BLE's Psych Mental Status: mental status grossly normal Speech and Movement: speech and movement normal Mood: congruent mood Affect: normal affect DS: Data Vitals/I&O Vitals and I&O: Vital Signs Temperature 36.6 C 11/29/20 08:15 Temperature Source Temporal Artery Scan 11/29/20 08:15 Pulse 55 L 11/29/20 06:00 Pulse Rhythm Regular 11/28/20 17:00 Pulse 55 L 11/29/20 06:01 Respiratory Rate 17 11/29/20 08:15 Respiratory Effort 11/29/20 08:15 Respiratory Depth Normal 11/29/20 08:15 Respiratory Pattern Normal 11/29/20 08:15 Blood Pressure 114/58 L 11/29/20 06:00 Blood Pressure Mean 72 11/29/20 06:00 Blood Pressure Position Sitting 11/29/20 00:00 Pulse Oximetry 97 11/29/20 08:15 Oxygen Delivery Method Room Air 11/29/20 08:15 Oxygen Flow Rate 0 11/29/20 08:15 Pain Level 0 11/29/20 09:54 Intake & Output 11/28/20 11/29/2021 23:59 11:59 23:59 Intake Total 567.782 / 1102.395 90.276 / 90.276 Output Total 900 / 1630 1275 / 1275 Balance -332.218 / -527.605 -1184.724 / -1184.724 Weight 88.3 kg Intake: IV 227.782 / 562.395 90.276 / 90.276 Oral 340 / 540 Output: Urine 900 / 1630 1275 / 1275 Other: Urine Color Yellow Yellow Urine Appearance Clear Clear Urine Odor None Normal Comment voiding independently in urinal voids in urinal Voiding Methods Urinal Urinal Data Completed and Pending Completed studies during hospitalization [Text1]: CXR 11/27/20: No acute pulmonary findings. Echo 11/29/20: Left Ventricle : External defibrillator is in place making parasternal views unattainable. Left ventricular systolic function is mildly decreased. There is normal left ventricular wall thickness. There is global hypokinesis of the left ventricle. LVEF is 48%. Right Ventricle : Right ventricle is not well visualized. Right ventricular systolic function could not be assessed. The RVSP is 29.5 mmHg. Atria : The left atrium size is normal. Right atrium is not well visualized. Aortic Valve : The aortic valve is normal in structure. Trace aortic regu rgitation. There is no aortic valvular stenosis. Mitral Valve : The mitral valve is normal in structure. Trace mitral regurgitation. No evidence of mitral valve stenosis. Great Vessels : Aortic root is not visualized. Ascending aorta is not visualized. IVC is normal in size and collapses >50% with inspiration. Compared to study from [facility] in 2017, there is no significant change. Labs on day of discharge: Labs from last 24 hours 11/29/20 06:26 Sodium 139 Potassium 3.8 Chloride 105 Carbon Dioxide 25.9 Anion Gap 8.1 BUN 15 Creatinine 0.8 Estimated GFR/1.73 m2 >= 60.00 Glucose 169 H Calcium 8.9 Magnesium 1.7 L PFSH Medical History Anal fissure Atrial fibrillation CAD (coronary artery disease) Chronic pain Clinical depression Diabetes Esophageal ring GERD (gastroesophageal reflux disease) Hammer toe Hiatal hernia Hyperlipidemia pt. states its a fissure near his coccyx Iron deficiency anemia Ischemic cardiomyopathy Lumbar degenerative disc disease Obstructive sleep apnea Pacemaker Peripheral neuropathy Pressure ulcer, buttock Ventricular tachyarrhythmia s/p ICD 2013 Surgical History History of cholecystectomy History of colonoscopy 12/17/18 History of coronary artery stent placement History of esophagogastroduodenoscopy (EGD) 12/17/18 History of permanent cardiac pacemaker placement with defib Family History Father Heart disease Mother Heart disease Brother Alcoholism Social History Smoking/Tobacco Use Status: Current every day Tobacco Type: smokeless tobacco Counseling given: patient declined Smoking risk assessment performed?: Yes Alcohol Intake: former Drug use: Never Substance use type: does not use Details: Pt states he vapes daily current occupation: Retired What type of physical activity do you participate in: bicycling Frequency: 3-4 times per week Do you feel safe at home: Yes Do you feel safe in your relationship?: Yes
--- NOTE | 2020-11-29 15:55 | PDOC.CMDIS ---
- If Service Date Differs Date of service: 11/29/20 Time of Service: 15:55 LACE Index Scoring Tool - Questions: Length of Stay (in days): 2 Acuity (Admit via E.D.?): Yes Comorbidities: Diabetes w/o Complication E.D. Visits: 1 - Answers: Total Score: 7 Risk of Readmission: Low Risk Care Management Discharge Reason for Hospitalization: V-tach Discharge Plan: Pato will be discharged home with no new services. He will follow up with his community providers and plan of care and transport with family. Patient/Family Education Needs: review of discharge instructions, medications, activity, follow up care, Ask Me Three
--- NOTE | 2020-11-29 16:59 | NUR.NOTE ---
Nursing Note: pt reports new home med order of 64mg mag but states his ins already pays for max ox 400mg 2tabs tid. DR Moody unavailable to ask. Reviewed with pt's RN Brenda PT adds that he normaly misses his afternoon dose or 800mg daily. Encouraged taking the current med max ox as pt is concerned about additional costs/ins coverage and told pt to take missed dose rodrigo and make certain he takes all 3 daily doses of 800mg and then reviewed the 2 mag orders with his measurement supervisor in the next 2-4weeks.
== END 2020-11-29 16:10 | disposition home or self-care (01) | DRG 315 ==
LOC: ER 11-28 00:33 → ICU 11-28 01:24
PROVIDERS: Internal Medicine; Admitting Provider Family Medicine; Emergency Provider Emergency Medicine; PCP Family Medicine; Visit Provider Family Medicine
DX: T82.897A Other specified complication of cardiac prosthetic devices, implants and grafts, initial encounter (principal); I47.2 Ventricular tachycardia; N17.9 Acute kidney failure, unspecified; I48.0 Paroxysmal atrial fibrillation; I10 Essential (primary) hypertension; I25.10 Atherosclerotic heart disease of native coronary artery without angina pectoris; E11.65 Type 2 diabetes mellitus with hyperglycemia; Z95.810 Presence of automatic (implantable) cardiac defibrillator; Z79.01 Long term (current) use of anticoagulants; F32.9 Major depressive disorder, single episode, unspecified; K22.2 Esophageal obstruction; D50.9 Iron deficiency anemia, unspecified; I25.5 Ischemic cardiomyopathy; G47.33 Obstructive sleep apnea (adult) (pediatric); E11.42 Type 2 diabetes mellitus with diabetic polyneuropathy; K21.9 Gastro-esophageal reflux disease without esophagitis; K44.9 Diaphragmatic hernia without obstruction or gangrene; M51.36 Other intervertebral disc degeneration, lumbar region; I95.9 Hypotension, unspecified; E83.42 Hypomagnesemia
CPT/HCPCS: 36415; 80048; 80053; 87635; 93005; 93306; 96365; 96366; 96375; 97162; 97530; 99222; 99285; 71045; 83735; 83880; 84439; 84443; 84484; 85025; 85610; 85730; 93010; 99223; 99239; 99291; J3010; J3490

== ENCOUNTER → 2020-12-04 11:29 | Outpatient (BNVA) | payer OTHER, SELFPAY | PROVIDERS: PCP Family Medicine; Referring Provider Family Medicine; Visit Provider Internal Medicine Cardiovascular Disease | DX: I25.5 Ischemic cardiomyopathy (principal); I10 Essential (primary) hypertension; I48.0 Paroxysmal atrial fibrillation; I35.1 Nonrheumatic aortic (valve) insufficiency; Z98.890 Other specified postprocedural states | CPT/HCPCS: 99214 ==

== ENCOUNTER → 2020-12-19 08:15 | Outpatient (BNVA) | payer OTHER, SELFPAY | PROVIDERS: PCP Family Medicine; Referring Provider Family Medicine; Visit Provider Psychiatry & Neurology Neurology | DX: G62.9 Polyneuropathy, unspecified (principal); R26.89 Other abnormalities of gait and mobility; E11.9 Type 2 diabetes mellitus without complications | CPT/HCPCS: 95908; 99215 ==

== ENCOUNTER 2020-12-19 15:59 | Outpatient (REF) | payer OTHER, SELFPAY ==
[2020-12-19 20:10] LABS: Anion Gap 11.9 mmol/L (3-11); BUN 22 mg/dL (7-18); CO2 23.1 mmol/L (21.0-32.0); Calcium 9.4 mg/dL (8.5-10.1); Chloride 104 mmol/L (98-107); Glucose 282 mg/dL (74-106); Potassium 4.1 mmol/L (3.5-5.1); Sodium 139 mmol/L (136-145)
[2020-12-20 16:55] LABS: Magnesium 1.6 mg/dL (1.7-2.8)
== END 2020-12-19 16:00 | disposition home or self-care (01) ==
LOC: LBN 15:59
PROVIDERS: PCP Family Medicine; Visit Provider Family Medicine
DX: I10 Essential (primary) hypertension (principal); I47.2 Ventricular tachycardia
CPT/HCPCS: 80048; 83735

== ENCOUNTER 2021-01-18 00:31 | Outpatient (CLI) | payer OTHER, SELFPAY | END 2021-01-18 00:32 | disposition home or self-care (01) | LOC: RT 00:31 | PROVIDERS: PCP Family Medicine; Visit Provider Family Medicine | DX: Z53.9 Procedure and treatment not carried out, unspecified reason (principal) ==

== ENCOUNTER 2021-01-21 07:08 | Outpatient (CLI) | payer OTHER, SELFPAY | END 2021-01-21 07:09 | disposition home or self-care (01) | LOC: RT 07:10 | PROVIDERS: PCP Family Medicine; Visit Provider Family Medicine | DX: Z53.9 Procedure and treatment not carried out, unspecified reason (principal) ==

== ENCOUNTER 2021-02-18 03:04 | Outpatient (CLI) | payer MEDICARE, SELFPAY ==
[2021-02-18] MEDS: Albuterol HFA 18 GM 200 PUFF INH IH (14:22)
[2021-02-18] MEDS: Inhaler, Assist Device 1 EACH MC (14:22)
--- NOTE | 2021-03-01 10:45 | W.PFT ---
Date of service: 02/18/21 Time of Service: 13:07 Pulmonary Function Test Result Requesting Provider Dewayne Carrington Indications: Amiodarone monitoring Interpretation Spirometry: There is no airflow limitation. And there is no significant bronchodilator response. Lung Volumes: Lung volumes are normal. Diffusion Capacity: Diffusion is normal. Airway Pressure: Airways resistance is normal. Impression Normal pulmonary function testing Note: No prior PFT seen to make comparison to. Clinical Correlation therefore is recommended.
== END 2021-02-18 03:05 | disposition home or self-care (01) ==
LOC: RT 03:04
PROVIDERS: PCP Family Medicine; Visit Provider Family Medicine
DX: Z79.899 Other long term (current) drug therapy (principal); Z87.891 Personal history of nicotine dependence
CPT/HCPCS: 94060; 94726; 94729

== ENCOUNTER 2021-03-20 09:41 | Outpatient (CLI) | payer MEDICARE, SELFPAY ==
--- NOTE | 2021-03-20 09:30 | RT.EKG_ITS ---
APPROVED REPORT Exam: Resting ECG Reason for Exam: VT Patient Location: O HR:63 bpm ECG Measurements Heart Rate 63 AXIS NC 237 P 0 QRSd 145 QRS -26 QT 489 T 9 QTc 501 Conclusion Sinus rhythm...normal P axis, V-rate 50- 99 Prolonged NC interval...NC >220, V-rate 50- 90 Nonspecific intraventricular conduction delay...QRSd >115mS, not LBBB/RBBB Inferior infarct, old...Q >35mS, II III aVF Consider anterior infarct...Q >30mS in V2-V5
== END 2021-03-20 09:42 | disposition home or self-care (01) ==
LOC: DI.CARD 09:41
PROVIDERS: PCP Family Medicine; Visit Provider Internal Medicine Cardiovascular Disease
DX: I47.2 Ventricular tachycardia (principal)
CPT/HCPCS: 93010

== ENCOUNTER → 2021-03-20 09:53 | Outpatient (BNVA) | payer MEDICARE, SELFPAY | PROVIDERS: PCP Family Medicine; Referring Provider Family Medicine; Visit Provider Internal Medicine Cardiovascular Disease | DX: I47.2 Ventricular tachycardia (principal); E83.42 Hypomagnesemia; I48.0 Paroxysmal atrial fibrillation; R94.5 Abnormal results of liver function studies | CPT/HCPCS: 99214 ==

== ENCOUNTER 2021-06-11 11:32 | Outpatient (CLI) | payer OTHER, SELFPAY | END 2021-06-11 11:33 | disposition home or self-care (01) | PROVIDERS: PCP Family Medicine; Visit Provider Internal Medicine Cardiovascular Disease | DX: R69 Illness, unspecified (principal) | CPT/HCPCS: 93010 ==

== ENCOUNTER → 2021-07-17 13:33 | Outpatient (CLI) | payer OTHER, SELFPAY ==
--- NOTE | 2021-07-17 | DI.RAD_ITS ---
Exam(s) XR RIBS LT W PA LAT CHEST EXAM: XR RIBS LT W PA LAT CHEST CLINICAL HISTORY: LT SIDED RIB PAIN, FELL DOWNSTAIRS, ? FX, ON BLOOD THINNERS TECHNIQUE: COMPARISON: CR,XR XR PORTABLE CHEST AP from 11/27/2020 FINDINGS: Five views were obtained. Note is made of a transvenous cardiac pacemaker in position. Coronary art shanel stents noted. Cardiac size is within normal limits. Lungs are clear and well expanded. No pleu ral effusion or pneumothorax. There is minimal deformity of left ribs 6 and 7 laterally, these proba tess represent old healed fractures. No definite acute rib fracture seen.. IMPRESSION: RADIATION DOSE DELIVERED: Total DLP
--- OUTSIDE RECORDS SUMMARY | 2021-07-17 14:16 | XMS_ITS ---
:1950 Author Care Team Providers Name Role Phone JENNIFER VÁZQUEZ MD ([facility]) Primary Care Provider [phone] [facility] MEDICAL RECORDS OTHER [phone] [facility]ABLE RESPIRATORY OTHER [phone] Allergies Code Code System Name Reaction Severity Status Onset Adhesive Tape ? ? Active ? Medications Name Status Start Date Stop Date ? ? amiodarone 200 mg tablet Active ? Not nathan ilable TAKE 2 TABLETS BY MOUTH EVERY DAY aspirin 81 mg tablet Active ? Not availab le Take 1 tablet every day by oral route. atorvastatin 20 mg tablet Active ? Not av ailable TAKE 1 TABLET BY MOUTH DAILY atorvastatin 80 mg tablet Active ? Not av ailable Take 1 tablet every day by oral route. BD Ultra-Fine Mini Pen Needle 31 gauge x 3/16 Active ? Not available USE TO INJECT ONCE DAILY DIRECTED buspirone 15 mg tablet Completed 07/11/2010 1 1 (one) Tablet: two times daily Ceftin 500 mg tablet Completed 10/29/2010 10/29/2010 1 (one) Tablet: Twice daily times 10 days Celexa 20 mg tablet Completed 08/02/2010 08/02/2010 1 (one) Tablet: daily clonazepam 1 mg tablet Active ? Not avail able clonidine HCl 0.1 mg tablet Completed 03/21/201101/18 1 (one) Tablet: Not to exceed two per 24 hours. ferrous gluconate 324 mg (37.5 mg iron) tablet Active ? Not available Take 1 tablet every day by oral route. ferrous gluconate 324 mg (38 mg Active ? Not available iron) tablet gemfibrozil 600 mg tablet Completed 10/29/20102010 1 Tablet: 1/2 tab abid glipizide 10 mg tablet Active ? Not avail able Take 1 tablet every day by oral route. glipizide ER 10 mg tablet, extended release 24 hr Active ? Not available TAKE 1 TABLET BY MOUTH DAILY FOR BLOOD SUGAR glipizide ER 2.5 mg tablet, extended release 24 hr Completed 05/19/2011 01/31/2013 1 Tablet ER 24HR: daily glipizide ER 5 mg tablet, extended release 24 hr Active ? Not available TAKE 1 TABLET BY MOUTH EVERY DAY hydrocodone 10 mg-acetaminophen 325 mg tablet Completed 03/21/2011 1/2 - 1 Tablet: qhs prn lamotrigine 200 mg tablet Active ? Not av ailable TAKE 1 TABLET BY MOUTH EVERY DAY. STOP IF RASH OCCURS lamotrigine 25 mg tablet Active ? Not nathan ilable TAKE 2 TABLETS BY MOUTH ONCE A DAY TAKE WITH 200MG FOR DEPRESSI ON lisinopril 10 mg tablet Completed 08/02/2010 08/03/19 11 1 (one) Tablet: daily lisinopril 2.5 mg tablet Active ? Not nathan ilable Take 1 tablet every day by oral route. lisinopril 5 mg tablet Active ? Not avail able TAKE 1 TABLET BY MOUTH ONCE DAILY FOR BLOOD PRESSURE AND KIDNEY S lorazepam 0.5 mg tablet Completed 07/16/2010 07/17/19 11 1 Tablet: two times a day as needed Mag 64 64 mg tablet,delayed release Active ? Not available TAKE 2 TABLET BY MOUTH THREE TIMES A DAY magnesium oxide 400 mg (241.3 mg magnesium) tablet Active ? Not available Take 1 tablet every day by oral route. meloxicam 7.5 mg tablet Completed 12/13/2010 12/14/19 11 1 (one) Tablet: daily metformin 1,000 mg tablet Active ? Not av ailable Take 1 tablet twice a day by oral route. metoprolol succinate ER 100 mg capsule sprinkle, ext. release 24 hr Active ? Not available Take 1.5 capsules twice a day by oral route. metoprolol succinate ER 100 mg tablet,extended release 24 hr Act chadd ? Not available TAKE TWO AND A HALF TABLET BY MOUTH ONCE DAILY multivitamin Active ? Not available 1 tab daily po nicotine (polacrilex) 4 mg gum Completed 03/18/2011 1 1 Gum: as directed every hour as needed Nitrostat 0.4 mg sublingual tablet Active ? Not available Place 1 tablet as needed by sublingual route as needed. OneTouch Delica Plus Lancet 30 gauge Active ? Not available TEST THREE TIMES A DAY OneTouch Ultra Test strips Active ? Not a vailable TEST THREE TIMES DAILY Pamelor 50 mg capsule Completed 03/20/2011 01/31/2013 2 (two) Capsule: every evening pantoprazole 40 mg tablet,delayed release Active ? Not available Take 1 tablet every day by oral route. perphenazine 4 mg tablet Completed 03/18/2011 013 1 Tablet: every four hours as needed Plavix 75 mg tablet Completed 05/19/2011 01/31/2013 1 (one) Tablet: daily Protopic 0.1 % topical ointment Completed 07/16/2010 01/31/2013 1 Ointment: to groins as directed Remeron 45 mg tablet Completed 08/02/2010 08/02/2010 1 (one) Tablet: at bedtime tramadol 50 mg tablet Active ? Not availa ble Take 1 tablet twice a day by oral route. Victoza 2-Ruddy 0.6 mg/0.1 mL (18 mg/3 mL) subcutaneous pen inject or Active ? Not available Inject 1.8 mg every day by subcutaneous route. Viibryd 40 mg tablet Active ? Not availab le Take 1 tablet every day by oral route. Vitamin D3 50 mcg (2,000 unit) capsule Active ? Not available Take 1 capsule every day by oral route. Xarelto 20 mg tablet Active ? Not availab le Take 1 tablet every day by oral route. Xopenex HFA 45 mcg/actuation aerosol inhaler Completed 01/31/2013 2 (two) breath: every 4-6 hours as needed Zithromax Z-Ruddy 250 mg tablet Completed 01/03/2011 1 Tablet: See note below zolpidem 10 mg tablet Active ? Not availa ble TAKE 1 TABLET BY MOUTH AT BEDTIME NEEDED zolpidem 5 mg tablet Active ? Not availab le Take 1 tablet every day by oral route. Problems Name Status Onset Date Source ? Diabetes Mellitus Active ? History Hyperlipidemia Active ? History Hypomagnesemia Active ? History Anemia Active ? History Recurrent Major Depression Active ? Histo ry Generalized Anxiety Disorder Active ? His tory Nicotine Dependence Active ? History Obstructive Sleep Apnea Syndrome Active ? History Hypertensive Disorder Active ? History Chronic Ischemic Heart Disease Active ? H istory Acute Bronchitis Active ? History Gastroesophageal Reflux Disease Active ? History Chronic Renal Impairment Active ? History Shoulder Joint Pain Active ? History Chest Pain Active ? History Increased Frequency of Urination Active ? History Abdominal Pain Active ? History Degeneration of Intervertebral Disc Active ? History Inflammatory Dermatosis Active ? History Disorder of Rotator Cuff Active ? History Procedures Date Name Performed by ? ? Cholecystectomy Information not avai lable Results Lab Results None recorded. Past Encounters 02/27/2021 Obstructive Sleep Apnea Syndrome Brooke Bright CHASSIS WIRER: [address] [place] [phone], Ph. Social History Tobacco Smoking Status Never Smoker Vaccine List Vaccine Type influenza, seasonal, injectable influenza, seasonal, injectable, preserv ative free 12/13/2010?0.5 mL pneumococcal polysaccharide PPV23 Td (adult), adsorbed Tdap Plan of Care Reminders Provider Appointments None ? ? recorded. Lab None ? ? recorded. Referral None ? ? recorded. Procedures None ? ? recorded. Surgeries None ? ? recorded. Imaging None ? ? recorded. Vitals 02/27/2021 03:15PM New Patient 44 Height Weight BMI Blood Pressure 186.69 cm 88.45 kg 25.4 kg/m2 132/72 mm[Hg] 03/02/2013 Height Weight Blood Pressure 185.42 cm 94.57 kg 138/78 mm[Hg] 03/20/2011 Weight Blood Pressure 102.97 kg 140/90 mm[Hg] 02/21/2011 Weight Blood Pressure 101.15 kg 114/70 mm[Hg] 01/03/2011 Weight Blood Pressure 101.21 kg 108/70 mm[Hg] 12/13/2010 Height Weight Blood Pressure 189.23 cm 101.6 kg 142/62 mm[Hg] 11/01/2010 Weight Blood Pressure 103.62 kg 102/68 mm[Hg] 09/20/2010 Weight Blood Pressure 106.91 kg 114/66 mm[Hg] 08/02/2010 Weight Blood Pressure 105.37 kg 130/66 mm[Hg] 07/16/2010 Height Weight Blood Pressure 189.23 cm 101.42 kg 128/64 mm[Hg]
== END ==
PROVIDERS: PCP Family Medicine; Visit Provider Physician Assistant Medical
DX: R07.81 Pleurodynia (principal)
CPT/HCPCS: 71046; 71100

== ENCOUNTER 2021-07-22 15:09 | Emergency (ER) | payer OTHER, SELFPAY ==
[2021-07-22 15:23] VITALS: BP 115/65; PULSE 60; RESP 16; TEMP 36.4; O2SAT 99
--- NOTE | 2021-07-22 15:30 | DI.CT_ITS ---
Exam(s) CT HEAD CERVICAL SPINE WO EXAM: CT HEAD CERVICAL SPINE WO CLINICAL HISTORY: intermittent horizontal diplopia aftr fall. TECHNIQUE: Imaging Protocol: Axial computed tomography images with coronal and sagittal reformatted images were created and reviewed FINDINGS: CT Head: Ventricles and Extra axial spaces: Normal in size and morphology for the patient's age. Hemorrhage: None. Cerebral parenchyma: Note is made of a partially empty sella. No acute territorial infarct. Midline shift: None. Brainstem/Cerebellum: Normal. Calvarium: Normal. Visualized Paranasal sinuses/Mastoids: Clear. Soft Tissues: Unremarkable. CT Cervical Spine: Bones: No acute fracture or subluxation. Degenerative changes are seen in the spine. Soft Tissues: Unremarkable. Lung Apices: Clear. IMPRESSION: 1. No acute intracranial process. 2. No acute fracture or subluxation in the cervical spine. RADIATION DOSE DELIVERED: 1,563.33mGy.cm Total DLP DATA REPOSITORY: All CT scans at this facility are submitted to the National Radiology Data Registry (NRDR) Dose Index Registry (DIR) with the [employer] ([employer]). RADIATION OPTIMIZATION: All CT scans at this facility use at least one of these dose optimization te chniques: automated exposure control; mA and/or kV adjustment per patient size (includes targeted exa ms where dose is matched to clinical indication); or iterative reconstruction.
--- NOTE | 2021-07-22 15:30 | DI.CT_ITS ---
Exam(s) CT CHEST/ABD/PEL W EXAM: CT CHEST/ABD/PEL W CLINICAL HISTORY: fall, left flank pain, +hematuria TECHNIQUE: Imaging Protocol: Axial computed tomography images with coronal and sagittal reformatted images were created and reviewed CONTRAST MATERIAL: Intravenous: Omnipaque 350 Contrast volume:99 mL Oral: No FINDINGS: CHEST: Tracheobronchial tree: Patent where visualized. Pulmonary parenchyma: No consolidation or dominant measurable mass. No architectural distortion. Mild basilar atelectasis. Visualized thyroid gland: Unremarkable. Mediastinum and Ly: No dominant adenopathy or fluid collection. The esophagus is unremarkable. Pleura: No effusion or pneumothorax. Heart: The heart is not dilated. Coronary artery calcifications are present. No pericardial effusion . Pulmonary arteries: The peripheral pulmonary arteries are poorly opacified. No central pulmonary emb olus is seen. Aorta: Thoracic aorta non-dilated. Atherosclerosis. Lymph nodes: Within normal limits. Tubes, Catheters, and Lines: Cardiac pacing wires are stable. Soft tissues: Unremarkable. Bones:Within normal limits for the patient's age. Old healed right rib fracture. ABDOMEN: Liver: Normal density. No measurable mass. Portal, Superior Mesenteric, and Splenic Veins: Unremarkable. Gallbladder and Biliary Tract: Status post cholecystectomy. No biliary ductal dilatation. Pancreas: Normal density, no abnormal calcifications or inflammatory process. Spleen: Normal. Adrenals: No masses seen. Kidneys: Normal size, contour and axis. There is a nonobstructing 4 mm stone in the lower pole of the left kidney. Stable simple renal cysts are present. No follow-up is recommended. Abdominal Aorta: Abdominal portion non-dilated. Atherosclerosis. Bowel: No obstruction or bowel wall thickening. Appendix is unremarkable. Diverticulosis in the desce nding and sigmoid colon, no evidence of diverticulitis. Peritoneal Cavity: No ascites, collection or mesenteric inflammatory response. No free air. Lymph Nodes: Within normal limits. Bones: Within normal limits for the patient's age. No acute fracture or dislocation. Soft Tissues: Unremarkable. PELVIS: Bladder: Symmetric distention, no gross wall thickening. Reproductive Organs: Unremarkable as visualized. Lymph Nodes: Within normal limits. Bones: Within normal limits. IMPRESSION: 1. No acute abnormality seen in the abdomen or pelvis. 2. No acute pulmonary process. RADIATION DOSE DELIVERED: 1,432.78mGy.cm Total DLP DATA REPOSITORY: All CT scans at this facility are submitted to the National Radiology Data Registry (NRDR) Dose Index Registry (DIR) with the [employer] ([employer]). RADIATION OPTIMIZATION: All CT scans at this facility use at least one of these dose optimization te chniques: automated exposure control; mA and/or kV adjustment per patient size (includes targeted exa ms where dose is matched to clinical indication); or iterative reconstruction.
--- NOTE | 2021-07-22 15:33 | W.ED.GENAD ---
Discharge Plan Disposition Patient Disposition: HOME Condition: Stable Discharge Details Clinical Impression: Nephrolithiasis, Muscle spasm, Ecchymosis, Hematuria Primary Care Provider: Dewayne Carrington ED Provider: Christine Adams Home Meds and New Rx's Prescriptions: New tamsulosin [Flomax] 0.4 mg capsule 0.4 mg PO DAILY Qty: 7 0RF Rx Instructions: may stop after passage of stone methocarbamol 500 mg tablet 1,000 mg PO QHS PRN (Reason: muscle spasm) Qty: 10 0RF Continued nitroglycerin 0.4 mg tablet, sublingual 0.4 mg SL Q5M PRN0RF glipizide 5 mg tablet extended release 24hr 10 mg PO DAILY 0RF Viibryd 20 mg tablet 40 mg PO HS 0RF clonazepam 1 mg tablet 1 mg PO TID PRN0RF ferrous gluconate 324 mg (37.5 mg iron) tablet 324 mg PO DAILY 0RF metoprolol succinate 100 mg tablet extended release 24 hr 100 mg PO BID Qty: 180 3RF amiodarone 200 mg tablet 400 mg PO DAILY 0RF vit [id number] [id number] mg/mL solution 0.25 ml IM DAILY 0RF clonazepam 1 mg tablet 1 mg PO DAILY PRN0RF cyanocobalamin (vitamin B-12) [Vitamin B-12] 1,000 mcg tablet 1,000 mcg PO DAILY 0RF aspirin 81 MG tablet,chewable 81 mg PO DAILY 0RF cholecalciferol (vitamin D3) [Vitamin D3] 50 mcg (2,000 unit) capsule 2,000 unit PO DAILY 0RF Xarelto 20 mg tablet 20 mg PO DAILY Qty: 90 3RF multivitamin [Men's Multi-Vitamin] 1 EACH tablet 1 ea PO DAILY 0RF metformin [Glucophage] 1,000 MG tablet 1,000 mg PO BID@0800,1700 0RF zolpidem 10 MG tablet 10 mg PO HS PRN PRN0RF lamotrigine 100 mg tablet 250 mg PO DAILY 0RF Label Comments: 4/18-200mg PO daily pantoprazole [Protonix] 20 MG tablet,delayed release (DR/EC) 40 mg PO HS 0RF Label Comments: 4/18-40mg PO daily per pt lisinopril 10 mg tablet 5 mg PO QAM 0RF acetaminophen [Mapap Extra Strength] 500 MG tablet 500 mg PO PRN PRN0RF Victoza 3-Ruddy 0.6 MG/0.1 ML pen injector 1.8 mg SQ HS 0RF tramadol 50 MG tablet 50 mg PO PRN PRN0RF magnesium chloride [Mag 64] 64 mg Tablet,Delayed Release (Dr/Ec) 128 mg PO BID Qty: 120 0RF atorvastatin 80 mg tablet 20 mg PO HS 0RF Label Comments: TAKE 1 TABLET BY MOUTH DAILY AT BEDTIME Discharge Instructions Instructions: Methocarbamol (By mouth), Kidney Stones (ED), Muscle Spasm (ED) Additional Instructions: As discussed, your left flank pain is likely multifactorial. This is likely in part to your kidney stone. Please encourage hydration. Please take the Flomax as prescribed until passage of stone. You may strain your urine to continue to monitor this and collect the stone that may pass. Also concerned that some of associated with muscle spasm from your recent injury. Please use heat to help soften the muscles, encourage gentle stretching, frequent gentle walking. You may use Tylenol to help with this discomfort. We will also prescribe methocarbamol. Please do not drive or drink alcohol while using this medication. We are sending you home with 1 dose. This can cause sedation. Please keep your upcoming appointment with your primary care. I have referred you to a local urologist for continued management of your kidney stone. If you develop fever/chills, increased pain, inability to hydrate, difficulty urinating any/worsening symptoms to seek care urgently once again Referrals: Rj Conti MD [ [facility] STAFF PHYSICIAN] - Dewayne Carrington [Primary Care Provider] - Discharge Data Discharge Date/Time-TO BE ENTERED AT DEPARTURE: 07/22/21 19:27 Medical Decision Making Patient is a pleasant 71-year-old male presenting today for evaluation of back pain after fall. Patient reports that he fell approximately 1 week ago. States he was going down the stairs carrying laundry when he missed stepped and fell for striking his head. He denies any loss of consciousness. Denies any continued headache. States that occasionally at night he can have horizontal diplopia but that if he corrects his vision this seems to subside. States that he is planning to see [facility] is questioning if this is associate with glasses. Not having any diplopia currently. Denies any nausea vomiting. Denies any chest pain or shortness of breath. However, he does state that he has some pain on the left posterior lower rib. Has ecchymotic area along this area as well near the left side of the flank. States that he hit a shovel when he fell and believes that this is the source of his bruising. Began having hematuria over the last few days. On exam, patient appears nontoxic. He is resting comfortably. Did not note any head trauma, evidence of skull fracture. Extraocular movements are intact and equal bilaterally. Pupils are equal round reactive to light. Did not endorsing diplopia actively. His cranial nerves are otherwise intact as well. 5 and 5 strength in all of his extremities. Pain no midline cervical spine tenderness, no midline pain along the lumbar spine. He has good sensation along the saddle region. He does have palpable spasm along the left side of his back and. Small faint area of ecchymosis over the left CVA. This seems to be the area of maximal discomfort. He does have pain with percussion of this area. The inferior aspect of the ribs but no appreciable fractures palpated. Abdominal exam is benign. Exam is reassuring although the patient symptoms certainly quite concerning. Primarily concerned based on his exam possible kidney injury during the time of his fall resulting in his hematuria. I do feel that moving forward with imaging is appropriate. His diplopia seems less consistent and less worrisome for intracranial hemorrhage although this certainly is a diagnosis with his recent fall. Patient is anticoagulated. Plan to move forward with CT of head, chest, abdomen pelvis. Discussed this plan with the patient who is in agreement. He did drive himself here but we will give Tylenol and apply lidocaine patch to help with the discomfort. We will hold off on any further medications although he will likely benefit from muscle relaxer based on findings on physical exam. CT reviewed by radiologist: FINDINGS: Tubes, catheters and devices: A left chest ICD is present with leads in the right atrium and ventricle. Lungs: Unremarkable. No consolidation. No masses. Pleural spaces: Unremarkable. No pneumothorax. No pleural effusion. Heart: Unremarkable. No cardiomegaly. No pericardial effusion. Aorta: Unremarkable. No aortic aneurysm. Lymph nodes: Unremarkable. No enlarged lymph nodes. Bones/joints: Unremarkable. No acute fracture. Soft tissues: Unremarkable. IMPRESSION: No acute thoracic abnormality. FINDINGS: Liver: Normal. No mass. Gallbladder and bile ducts: Prior cholecystectomy. Pancreas: Normal. No ductal dilation. Spleen: Normal. No splenomegaly. Adrenal glands: Normal. No mass. Kidneys and ureters: A few cysts are present in the left kidney, the dominant cyst measures 4 cm. There is a punctate nonobstructing calculus in the lower pole of the left kidney. The right kidney is unremarkable. Stomach and bowel: Mild colonic diverticulosis is present. There are no dilated loops of bowel. Appendix: No evidence of appendicitis. Intraperitoneal space: Unremarkable. No free air. No significant fluid collection. Vasculature: Unremarkable. No abdominal aortic aneurysm. Lymph nodes: Unremarkable. No enlarged lymph nodes. Urinary bladder: Unremarkable as visualized. Reproductive: Unremarkable as visualized. Bones/joints: Moderate degenerative disc and facet disease is present at L4-L5 and L5-S1. Otherwise, mild multilevel degenerative changes are present. Soft tissues: Unremarkable.IMPRESSION: 1. No acute abnormality of the abdomen and pelvis. 2. Punctate non-obstructing calculus in the lower pole left kidney. 3. Mild colonic diverticulosis. FINDINGS: Brain: There is no acute intracranial hemorrhage, mass effect or midline shift. There is no large acute territorial cerebral infarct. 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 Cerebral ventricles: No ventriculomegaly. Paranasal sinuses: Visualized sinuses are unremarkable. No fluid levels. Mastoid air cells: Visualized mastoid air cells are well aerated. Bones/joints: Unremarkable. No acute fracture. Soft tissues: Unremarkable. IMPRESSION: No acute intracranial hemorrhage, mass effect or midline shift. FINDINGS: Bones/joints: No acute fracture. No significant listhesis. Discs/Spinal canal/Neural foramina: There are multilevel degenerative changes most prominent at C5-C6 and C6-C7 with the left greater than right neural foraminal narrowing. No significant spinal canal stenosis. Oropharynx: A focus of nonspecific submucosal calcification is noted at the right aspect of the oropharynx (image 188, series 10). Lungs: Lung apices are normal. Soft tissues: Unremarkable. IMPRESSION: No acute fracture. Multilevel degenerative changes as described. Discussed the findings with the patient. He reports that he has had multiple stones historically. However, sound like these have been several years ago and that 1 of these had to have surgical extraction. He states that the pain did not seem as severe as when he had kidney stones historically prompting him to think that this is more associated with his recent trauma. However, as the pain has increased recently instead of improving since the injury, it is possible that this is multifactorial, both from the stone as well as muscular pain. Encourage hydration. Will give a dose of Flomax here. Patient does have an appointment tomorrow with his primary care provider. Patient did have palpable spasm on the left side of his back. Will prescribe methocarbamol. We will continue with the Flomax advised that he may start this after the passage of stone. Will send home with strainer for urine. Will refer to urology. States he did not have any stones several years Saw a urologist in [place]. We did discuss the possible side effects associated with the muscle relaxants, he is aware that he should not drive while taking these medications and should not change his alcohol. Strict return precautions were discussed. We will keep his appointment tomorrow with his primary care provider. All questions concerns were addressed and he is agreement this plan. HPI General Date/Time Provider Initiated Documentation: 07/22/21 15:32. Limitations to Documentation: no limitations. Information obtained by: patient and RN notes reviewed. History of Present Illness 71 year old M presents to the emergency department with the chief complaint of back pain, diplopia, hematuria, described as severe, with intensity rated at 8. Quality is described as aching, and is localized to the back. Patient reports no radiation. Patient started experiencing this week(s) (1) and it has been constant. improves with Immobilization improves symptom(s), Movement worsens symptoms (worse after walking 2miles yesterday) . Patient notes headaches (denies any currently, had ALCARAZ initially) and rash (ecchymotic area left flank); denies chest pain, cough, diaphoresis, fever/chills, loss of appetite, nausea/vomiting and shortness of breath. Patient did receive the following treatments prior to arrival, none Related Data Home Medications Medication Instructions Recorded Confirmed metformin 1,000 mg tablet 1,000 mg PO BID@0800,1700 05/16/13 12/19/20 (Glucophage) multivitamin (Men's Multi-Vitamin) 1 ea PO DAILY 05/16/13 12/19/20 zolpidem 10 mg tablet 10 mg PO HS PRN PRN 05/16/13 12/19/20 pantoprazole 20 mg tablet,delayed 40 mg PO HS 12/06/13 12/19/20 release (Protonix) acetaminophen 500 mg tablet (Mapap 500 mg PO PRN PRN 12/18/16 12/19/20 Extra Strength) liraglutide 0.6 mg/0.1 mL (18 mg/3 1.8 mg SQ HS 01/19/17 12/19/20 mL) subcutaneous pen injector (Victoza 3-Ruddy) aspirin 81 mg chewable tablet 81 mg PO DAILY tab-cap 07/23/17 12/19/20 tramadol 50 mg tablet 50 mg PO PRN PRN 07/24/17 12/19/20 nitroglycerin 0.4 mg sublingual 0.4 mg SL Q5M PRN 01/31/19 12/19/20 tablet cholecalciferol (vitamin D3) 50 2,000 unit PO DAILY 06/13/19 12/19/20 mcg (2,000 unit) capsule (Vitamin D3) rivaroxaban 20 mg tablet (Xarelto) 20 mg PO DAILY #90 tab 09/06/19 12/19/20 clonazepam 1 mg tablet 1 mg PO TID PRN 09/21/19 12/19/20 vilazodone 20 mg tablet (Viibryd) 40 mg PO HS tab 09/21/19 12/19/20 cyanocobalamin (vitamin B-12) 1,000 mcg PO DAILY 12/13/19 12/19/20 1,000 mcg tablet (Vitamin B-12) glipizide 5 mg tablet, extended 10 mg PO DAILY tab 07/09/20 12/19/20 release 24 hr lamotrigine 100 mg tablet 250 mg PO DAILY tab 07/09/20 12/19/20 magnesium chloride 64 mg 128 mg PO BID #120 tab 11/29/20 12/19/20 (magnesium chloride) tablet,delayed release (Mag 64) ferrous gluconate 324 mg (37.5 mg 324 mg PO DAILY 12/04/20 12/19/20 iron) tablet lisinopril 10 mg tablet 5 mg PO QAM tab 12/04/20 12/19/20 metoprolol succinate 100 mg 100 mg PO BID #180 tab 12/04/20 12/19/20 tablet,extended release 24 hr atorvastatin 80 mg tablet 20 mg PO HS tab 12/19/20 12/19/20 amiodarone 200 mg tablet 400 mg PO DAILY tab 03/20/21 clonazepam 1 mg tablet 1 mg PO DAILY PRN 03/20/21 vitamins [id number] 100 mg-2 0.25 ml IM DAILY 03/20/21 mg-100 mg-2 mg-2 mg/mL injection soln methocarbamol 500 mg tablet 1,000 mg PO QHS PRN #10 tab 07/22/21 tamsulosin 0.4 mg capsule (Flomax) 0.4 mg PO DAILY #7 cap 07/22/21 Previous Rx's Medication Instructions Recorded rivaroxaban 20 mg tablet (Xarelto) 20 mg PO DAILY #90 tab 09/06/19 magnesium chloride 64 mg 128 mg PO BID #120 tab 11/29/20 (magnesium chloride) tablet,delayed release (Mag 64) metoprolol succinate 100 mg 100 mg PO BID #180 tab 12/04/20 tablet,extended release 24 hr methocarbamol 500 mg tablet 1,000 mg PO QHS PRN #10 tab 07/22/21 tamsulosin 0.4 mg capsule (Flomax) 0.4 mg PO DAILY #7 cap 07/22/21 Allergies Allergy/AdvReac Type Severity Reaction Status Date / Time adhesive tape Allergy Unknown rash Verified 03/20/21 10:01 latex AdvReac Intermediate trouble Verified 03/20/21 10:01 breathing/moving General Stated Complaint: GenMedical SHAILESH: 3 Review of Systems Constitutional Constitutional: Reports as per HPI, Denies chills, Denies fatigue, Denies fever(s), Denies headache(s) and Denies weakness Eyes Eyes: Reports as per HPI, Denies blurry vision, Reports change in vision (intermittent diplopia which he can correct, concerned associated with glass) and Denies loss of vision ENT Ears, Nose, Mouth, and Throat: Denies abnormal hearing, Denies headache(s) and Denies neck pain Cardiovascular Cardiovascular: Reports as per HPI, Denies chest pain and Denies dyspnea Respiratory Respiratory: Reports as per HPI, Denies cough, Denies pain on inspiration, Denies pain with cough and Denies dyspnea Gastrointestinal Gastrointestinal: Reports as per HPI, Denies abdominal pain, Denies nausea and Denies vomiting Genitourinary Genitourinary: Reports as per HPI, Reports hematuria, Denies genital pain, Denies dysuria, Reports flank pain and Denies urinary incontinence Musculoskeletal Musculoskeletal: Reports as per HPI, Reports back pain (along left flank, discomfort and ecchymosis), Denies muscle weakness, Denies neck pain, Denies radiating pain into limb, Reports stiffness and Denies tingling Integumentary/Breasts Skin/Breast: Reports as per HPI and Denies rash Neurologic Neurologic: Reports as per HPI, Denies abnormal hearing, Denies abnormal movements, Denies abnormal speech, Denies headache(s), Denies lack of coordination, Denies localized weakness, Denies loss of vision, Denies seizure-like activity, Denies tingling, Denies paresthesias and Denies weakness Endocrine Endocrine: Denies fatigue PFSH All Active Problems (Updated 07/22/21 @ 19:05 by MAXIMO Dan) Nephrolithiasis (Chronic) Muscle spasm (Acute) Ecchymosis (Acute) Hematuria (Acute) emt intermediate current use of 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 medical therapy (Acute) Imbalance (Acute) Hypomagnesemia (Acute) Ischemic cardiomyopathy (Chronic) Discharge planning issues (Acute) DVT prophylaxis (Acute) Dizziness (Acute) Hammer toe (Acute) Peripheral neuropathy (Chronic) Ventricular tachyarrhythmia (Chronic) s/p ICD 2013 Clinical depression (Chronic) GERD (gastroesophageal reflux disease) (Chronic) Obstructive sleep apnea (Chronic) Atrial fibrillation (Chronic) Diverticulosis (Acute) Gastritis (Acute) Unspecified fracture of the lower end of right radius, subsequent encounter for closed fracture with routine healing (Acute 08/12/17) Contusion of left knee, initial encounter (Acute 08/12/17) Disequilibrium (Chronic 11/10/16) Dysphagia (Acute) Rib pain on right side (Acute) Contact dermatitis (Acute) Magnesium deficiency (Acute) Hypertension (Chronic) Diabetes (Chronic) CAD (coronary artery disease) (Chronic) Chronic pain (Chronic) Medical History Anal fissure Atrial fibrillation CAD (coronary artery disease) Chronic pain Clinical depression Diabetes Esophageal ring GERD (gastroesophageal reflux disease) Hammer toe Hiatal hernia Hyperlipidemia pt. states its a fissure near his coccyx Iron deficiency anemia Ischemic cardiomyopathy Lumbar degenerative disc disease Obstructive sleep apnea Pacemaker Peripheral neuropathy Pressure ulcer, buttock Ventricular tachyarrhythmia s/p ICD 2013 Surgical History History of cholecystectomy History of colonoscopy 12/17/18 History of coronary artery stent placement History of esophagogastroduodenoscopy (EGD) 12/17/18 History of permanent cardiac pacemaker placement with defib Family History Father Heart disease Mother Heart disease Brother Alcoholism Social History Smoking/Tobacco Use Status: Current every day Tobacco Type: smokeless tobacco Counseling given: patient declined Smoking risk assessment performed?: Yes Alcohol Intake: former Drug use: Never Substance use type: does not use Details: Pt states he vapes daily current occupation: Retired What type of physical activity do you participate in: bicycling Frequency: 3-4 times per week Do you feel safe at home: Yes Do you feel safe in your relationship?: Yes Exam Const General: cooperative, healthy appearing, comfortable, no acute distress, well developed and well groomed Nutritional Appearance: average body habitus and well nourished Orientation: alert, awake and oriented x3 HENMT Head: normal to inspection, no palpable skull fracture, normocephalic and atraumatic Ears: hearing grossly normal bilaterally, external ears normal and TM's normal bilaterally General nose exam: external nose normal Mouth: oral mucosae normal, lip normal and tongue normal Throat: posterior oropharynx normal Eyes General: appearance normal, both eyes and all related structures Visual Bell: normal visual bell by confrontation Alignment and Position: alignment normal Periorbital: periorbital findings normal Eyelids: eyelids normal Conjunctivae: conjunctivae normal Pupils: PERRL EOM: EOM intact bilaterally Neck Neck: normal visual inspection, full ROM, no lymphadenopathy, no meningeal signs, trachea midline and supple Chest Chest: normal inspection of the chest, normal palpation of entire chest wall, no crepitus and no localized rib tenderness Resp Effort & Inspection: normal respiratory effort, able to speak in complete sentences and no respiratory distress Auscultation: clear to auscultation bilaterally, no rales, no rhonchi and no wheezes Cardio Rate: regular rate Rhythm: regular rhythm Heart Sounds: S1 normal and S2 normal GI Inspection: normal to inspection, no abdominal wall ecchymosis, no edema and non-distended Palpation: soft, no hepatosplenomegaly, not firm, no guarding, no pulsatile masses, not rigid and nontender Auscultation: normal bowel sounds Back/Spine/Pelvis Back: CVA tenderness (left, faint ecchymosis over this area) Cervical Spine: normal cervical lordosis and cervical ROM normal Thoracic/Lumbar Spine: thoracic and lumbar spine normal to inspection, thoraco-lumbar ROM normal, No thoraco-lumbar ROM limited, No thoraco-lumbar spasm and No thoracic spinal tenderness Pelvis: no pain with anterior-posterior compression and no pain with lateral compression Skin General skin exam: ecchymosis Lesions: no lesions Rashes: no rashes Trauma: no lacerations or abrasions Wounds: no wounds Neuro General: patient alert, patient awake, patient oriented x3, gait normal, tone normal and moves all extremities Cranial Nerves: CN's II-XI intact bilaterally Cognition: normal cognition Speech: speech normal Gait: normal gait Motor: muscle tone normal throughout and strength 5/5 throughout Sensory Exam: no sensory deficits noted (no saddle paresthesias) Extrem General: normal to inspection, full ROM, capillary refill normal, no pedal edema and no calf tenderness Psych Appearance: grossly normal and well kempt Mental Status: mental status grossly normal Speech and Movement: speech and movement normal Course Vital Signs Vital signs: Vital Signs Temperature 36.4 C L 07/22/21 15:23 Pulse 60 07/22/21 15:23 Respiratory Rate 16 07/22/21 15:23 Blood Pressure 115/65 07/22/21 15:23 Pulse Oximetry 99 07/22/21 15:23 Temperature 36.4 C L 07/22/21 15:23 Temperature Source Oral 07/22/21 15:23 Pulse 60 07/22/21 15:23 Respiratory Rate 16 07/22/21 15:23 Blood Pressure 115/65 07/22/21 15:23 Blood Pressure Position Sitting 07/22/21 15:23 Pulse Oximetry 99 07/22/21 15:23 Oxygen Delivery Method Room Air 07/22/21 15:23 Oxygen Flow Rate 0 07/22/21 15:23 Pain Level 8 07/22/21 15:23
[2021-07-22 16:15] LABS: Abs Immature Grans 0.05 10^3/uL (0.0-0.06); Absolute Basophil Count 0.06 10^3/uL (0.0-0.2); Absolute Lymphocyte Count 1.94 10^3/uL (1.2-3.4); Absolute Monocyte Count 0.47 10^3/uL (0.1-0.8); Absolute Neutrophil Count 5.03 10^3/uL (1.2-6.7); Basophils % 0.7; Eosinophils % 9.6; HCT 46.9 % (40.0-50.0); HGB 15.2 g/dL (13.5-17.5); Immature Grans % 0.6; Lymphocytes % 23.2; MCH 29.3 pg (27.0-33.0); MCHC 32.4 % (32.0-36.0); MCV 90.4 fL (80-95); MPV 10.8 fL (8.0-11.0); Monocytes % 5.6; Neutrophils % 60.3; Nucleated RBC 0 %; Platelet Count 247 10^3/uL (130-400); RBC 5.19 10^6/uL (4.36-5.78); RDW 13.8 % (11.8-14.1); RDW-SD 45.2 fL; WBC 8.35 10^3/uL (4.4-10.8)
[2021-07-22 16:36] LABS: Bilirubin Moderate (Negative); Blood Large (Negative); Clarity Turbid (Clear); Glucose Negative (Negative); Ketones Trace mg/dL (Negative); Leukocyte Esterase Negative (Negative); Nitrite Negative (Negative); pH 5.5 (5-8)
[2021-07-22 16:37] LABS: Specific Gravity 1.024 (1.005-1.025)
[2021-07-22] MEDS: Acetaminophen 325 MG TAB 650 MG PO (16:38)
[2021-07-22 16:44] LABS: C & S Indicated? No; RBC >50 HPF (0-2)
[2021-07-22 17:17] LABS: ALT 84 U/L (16-63); AST 72 U/L (15-37); Albumin 3.5 g/dL (3.4-5.0); Alkaline Phosphatase 77 U/L (46-116); Anion Gap 8.4 mmol/L (3-11); BUN 23 mg/dL (7-18); Bilirubin, Total 0.5 mg/dL (0.2-1.0); CO2 24.6 mmol/L (21.0-32.0); Calcium 8.1 mg/dL (8.5-10.1); Chloride 105 mmol/L (98-107); Glucose 147 mg/dL (74-106); Lipase 82 U/L (73-393); Magnesium 1.7 mg/dL (1.8-2.4); Potassium 4.4 mmol/L (3.5-5.1); Sodium 138 mmol/L (136-145); Total Protein 6.8 g/dL (6.4-8.2)
[2021-07-22] MEDS: Omnipaque 350 MG/ML 100 ML BTL IJ (17:26)
--- NOTE | 2021-07-22 17:41 | DI.VRAD_ITS ---
PROCEDURE INFORMATION: Exam: CT Chest With Contrast; Diagnostic Exam date and time: 07/22/2021 5:10 PM Age: 71 years old Clinical indication: Other: Fall, left flank pain, positive hematuria TECHNIQUE: Imaging protocol: Diagnostic computed tomography of the chest with contrast. 3D rendering (Not supervised by radiologist): MIP and/or 3D reconstructed images were created by the technologist. Radiation optimization: All CT scans at this facility use at least one of these dose optimization techniques: automated exposure control; mA and/or kV adjustment per patient size (includes targeted exams where dose is matched to clinical indication); or iterative reconstruction. Contrast material: OMNIPAQUE 350; Contrast volume: 99 ml; Contrast route: INTRAVENOUS (IV); COMPARISON: 1. CT Abdomen^CAP WITH (Adult) 04/22/2018 10:36 AM 2. CR XR RIBS LT W PA LAT CHEST 07/17/2021 2:59 PM FINDINGS: Tubes, catheters and devices: A left chest ICD is present with leads in the right atrium and ventricle. Lungs: Unremarkable. No consolidation. No masses. Pleural spaces: Unremarkable. No pneumothorax. No pleural effusion. Heart: Unremarkable. No cardiomegaly. No pericardial effusion. Aorta: Unremarkable. No aortic aneurysm. Lymph nodes: Unremarkable. No enlarged lymph nodes. Bones/joints: Unremarkable. No acute fracture. Soft tissues: Unremarkable. IMPRESSION: No acute thoracic abnormality. PROCEDURE INFORMATION: Exam: CT Abdomen And Pelvis With Contrast Exam date and time: 07/22/2021 5:10 PM Age: 71 years old Clinical indication: Other: Fall, left flank pain, positive hematuria TECHNIQUE: Imaging protocol: Computed tomography of the abdomen and pelvis with contrast. 3D rendering (Not supervised by radiologist): MIP and/or 3D reconstructed images were created by the technologist. Radiation optimization: All CT scans at this facility use at least one of these dose optimization techniques: automated exposure control; mA and/or kV adjustment per patient size (includes targeted exams where dose is matched to clinical indication); or iterative reconstruction. Contrast material: OMNIPAQUE 350; Contrast volume: 99 ml; Contrast route: INTRAVENOUS (IV); COMPARISON: 1. CT Abdomen^CAP WITH (Adult) 04/22/2018 10:36 AM 2. CR XR RIBS LT W PA LAT CHEST 07/17/2021 2:59 PM FINDINGS: Liver: Normal. No mass. Gallbladder and bile ducts: Prior cholecystectomy. Pancreas: Normal. No ductal dilation. Spleen: Normal. No splenomegaly. Adrenal glands: Normal. No mass. Kidneys and ureters: A few cysts are present in the left kidney, the dominant cyst measures 4 cm. There is a punctate nonobstructing calculus in the lower pole of the left kidney. The right kidney is unremarkable. Stomach and bowel: Mild colonic diverticulosis is present. There are no dilated loops of bowel. Appendix: No evidence of appendicitis. Intraperitoneal space: Unremarkable. No free air. No significant fluid collection. Vasculature: Unremarkable. No abdominal aortic aneurysm. Lymph nodes: Unremarkable. No enlarged lymph nodes. Urinary bladder: Unremarkable as visualized. Reproductive: Unremarkable as visualized. Bones/joints: Moderate degenerative disc and facet disease is present at L4-L5 and L5-S1. Otherwise, mild multilevel degenerative changes are present. Soft tissues: Unremarkable. IMPRESSION: 1. No acute abnormality of the abdomen and pelvis. 2. Punctate non-obstructing calculus in the lower pole left kidney. 3. Mild colonic diverticulosis. Dictated and Authenticated by: Mavis Dawkins MD. Ordering:KATYA King MD
--- NOTE | 2021-07-22 17:55 | DI.VRAD_ITS ---
PROCEDURE INFORMATION: Exam: CT Head Without Contrast Exam date and time: 07/22/2021 5:04 PM Age: 71 years old Clinical indication: Other: Intermittent horizontal diplopia after fall TECHNIQUE: Imaging protocol: Computed tomography of the head without contrast. Radiation optimization: All CT scans at this facility use at least one of these dose optimization techniques: automated exposure control; mA and/or kV adjustment per patient size (includes targeted exams where dose is matched to clinical indication); or iterative reconstruction. COMPARISON: 1. CT Head^HEAD FACE CSPINE (Adult) 04/22/2018 10:[address] Abdomen^CAP WITH (Adult) 04/22/2018 10:36 AM FINDINGS: Brain: There is no acute intracranial hemorrhage, mass effect or midline shift. There is no large acute territorial cerebral infarct. 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 Cerebral ventricles: No ventriculomegaly. Paranasal sinuses: Visualized sinuses are unremarkable. No fluid levels. Mastoid air cells: Visualized mastoid air cells are well aerated. Bones/joints: Unremarkable. No acute fracture. Soft tissues: Unremarkable. IMPRESSION: No acute intracranial hemorrhage, mass effect or midline shift. PROCEDURE INFORMATION: Exam: CT Cervical Spine Without Contrast Exam date and time: 07/22/2021 5:04 PM Age: 71 years old Clinical indication: Other: Intermittent horizontal diplopia after fall TECHNIQUE: Imaging protocol: Computed tomography images of the cervical spine without contrast. Radiation optimization: All CT scans at this facility use at least one of these dose optimization techniques: automated exposure control; mA and/or kV adjustment per patient size (includes targeted exams where dose is matched to clinical indication); or iterative reconstruction. COMPARISON: 1. CT Head^HEAD FACE CSPINE (Adult) 04/22/2018 10:[address] Abdomen^CAP WITH (Adult) 04/22/2018 10:36 AM FINDINGS: Bones/joints: No acute fracture. No significant listhesis. Discs/Spinal canal/Neural foramina: There are multilevel degenerative changes most prominent at C5-C6 and C6-C7 with the left greater than right neural foraminal narrowing. No significant spinal canal stenosis. Oropharynx: A focus of nonspecific submucosal calcification is noted at the right aspect of the oropharynx (image 188, series 10). Lungs: Lung apices are normal. Soft tissues: Unremarkable. IMPRESSION: No acute fracture. Multilevel degenerative changes as described. Dictated and Authenticated by: Brooklyn Snider MD. Ordering:KATYA King MD
--- NOTE | 2021-07-22 18:15 | NUR.NOTE ---
per Christine referral for pt to be f/u with urology rodr[facility] for kidney stone. faxed and noted
[2021-07-22] MEDS: Lactated Ringers 1,000 ML 1000 ML IV (18:17)
[2021-07-22] MEDS: Tamsulosin 0.4 MG CAPCR PO (18:30)
[2021-07-22 19:21] VITALS: PULSE 56; RESP 14; TEMP 36.7; O2SAT 99
[2021-07-22] MEDS: Methocarbamol 500 MG TAB 1000 MG PO (19:21)
== END 2021-07-22 19:27 | disposition home or self-care (01) ==
PROVIDERS: Emergency Provider Physician Assistant; PCP Family Medicine
DX: N20.0 Calculus of kidney (principal); M62.838 Other muscle spasm; M54.9 Dorsalgia, unspecified; S09.8XXA Other specified injuries of head, initial encounter; S30.1XXA Contusion of abdominal wall, initial encounter; W10.8XXA Fall (on) (from) other stairs and steps, initial encounter
CPT/HCPCS: 36415; 74177; 80053; 83690; 96360; 99285; 70450; 71260; 72125; 81003; 81015; 83735; 85025; 99284; J3490

== ENCOUNTER → 2021-08-05 10:30 | Outpatient (BNVA) | payer OTHER, SELFPAY | PROVIDERS: PCP Family Medicine; Referring Provider Family Medicine; Visit Provider Urology | DX: N20.0 Calculus of kidney (principal); R31.0 Gross hematuria | CPT/HCPCS: 81003; 99215 ==

== ENCOUNTER → 2021-08-07 09:25 | Outpatient (BNVA) | payer OTHER, SELFPAY | PROVIDERS: PCP Family Medicine; Referring Provider Family Medicine; Visit Provider Physician Assistant | DX: Z95.810 Presence of automatic (implantable) cardiac defibrillator (principal); I47.2 Ventricular tachycardia; I48.0 Paroxysmal atrial fibrillation | CPT/HCPCS: 93282 ==

== ENCOUNTER 2021-09-17 10:26 | Emergency (ER) | payer OTHER, SELFPAY ==
[2021-09-17] VITALS (46 sets, daily range): BP systolic 140–191; BP diastolic 55–97; PULSE 59–67; RESP 10–23; O2SAT 95–99
--- NOTE | 2021-09-17 10:30 | RT.EKG_ITS ---
APPROVED REPORT Exam: Resting ECG Reason for Exam: Weak Patient Location: E HR:60 bpm ECG Measurements Heart Rate 60 AXIS IA 265 P 64 QRSd 132 QRS -71 QT 469 T 24 QTc 469 Conclusion Sinus rhythm Ventricular premature complex. Prolonged IA interval...IA >220, V-rate 50- 90 Nonspecific IVCD with LAD. No significant change from previous
[2021-09-17 10:56] LABS: Abs Immature Grans 0.03 10^3/uL (0.0-0.06); Absolute Basophil Count 0.04 10^3/uL (0.0-0.2); Absolute Eosinophil Count 0.26 10^3/uL (0.0-0.7); Absolute Lymphocyte Count 2.27 10^3/uL (1.2-3.4); Absolute Neutrophil Count 4.32 10^3/uL (1.2-6.7); Basophils % 0.5; Eosinophils % 3.5; HCT 43.8 % (40.0-50.0); HGB 14.6 g/dL (13.5-17.5); Immature Grans % 0.4; Lymphocytes % 30.6; MCH 30.1 pg (27.0-33.0); MCHC 33.3 % (32.0-36.0); MCV 90 fL (80-95); MPV 9.2 fL (8.0-11.0); Monocytes % 6.7; Neutrophils % 58.3; Platelet Count 204 10^3/uL (130-400); RBC 4.85 10^6/uL (4.36-5.78); RDW 13.8 % (11.8-14.1); RDW-SD 45.9 fL; WBC 7.42 10^3/uL (4.4-10.8)
--- NOTE | 2021-09-17 11:16 | ED.GENADUL_ITS ---
Discharge Plan Disposition Patient Disposition: HOME Condition: Stable Discharge Details Clinical Impression: Confusion, Disequilibrium Primary Care Provider: Dewayne Carrington ED Provider: Mary Ayala Home Meds and New Rx's Prescriptions: No Action nitroglycerin 0.4 mg tablet, sublingual 0.4 mg SL Q5M PRN glipizide 5 mg tablet extended release 24 hr 2.5 mg PO DAILY Viibryd 20 mg tablet 40 mg PO HS clonazepam 1 mg tablet 1 mg PO TID PRN ferrous gluconate 324 mg (37.5 mg iron) tablet 324 mg PO DAILY metoprolol succinate 100 mg tablet extended release 24 hr 100 mg PO BID Qty: 180 3RF amiodarone 200 mg tablet 400 mg PO DAILY vit [id number] mg/mL solution 0.25 ml IM DAILY clonazepam 1 mg tablet 1 mg PO DAILY PRN cyanocobalamin (vitamin B-12) [Vitamin B-12] 1,000 mcg tablet 1,000 mcg PO DAILY aspirin 81 MG tablet,chewable 81 mg PO DAILY cholecalciferol (vitamin D3) [Vitamin D3] 50 mcg (2,000 unit) capsule 2,000 unit PO DAILY Xarelto 20 mg tablet 20 mg PO DAILY Qty: 90 3RF multivitamin [Men's Multi-Vitamin] 1 EACH tablet 1 ea PO DAILY metformin [Glucophage] 1,000 MG tablet 1,000 mg PO BID@0800,1700 zolpidem 10 MG tablet 10 mg PO HS PRN PRN lamotrigine 100 mg tablet 250 mg PO DAILY Label Comments: 07/23/17-200mg PO daily pantoprazole [Protonix] 20 MG tablet,delayed release (DR/EC) 40 mg PO HS Label Comments: 18-40mg PO daily per pt lisinopril 10 mg tablet 5 mg PO QAM acetaminophen [Mapap Extra Strength] 500 MG tablet 500 mg PO PRN PRN Victoza 3-Ruddy 0.6 MG/0.1 ML pen injector 1.8 mg SQ HS tramadol 50 MG tablet 50 mg PO PRN PRN tamsulosin [Flomax] 0.4 mg capsule 0.4 mg PO DAILY Qty: 7 0RF Rx Instructions: may stop after passage of stone methocarbamol 500 mg tablet 1,000 mg PO QHS PRN (Reason: muscle spasm) Qty: 10 0RF Mag 64 64 mg Tablet,Delayed Release (Dr/Ec) 128 mg PO BID Qty: 120 0RF atorvastatin 80 mg tablet 20 mg PO HS Label Comments: TAKE 1 TABLET BY MOUTH DAILY AT BEDTIME Discharge Instructions Instructions: Acute Delirium (ED) Additional Instructions: A referral was placed by [facility] I do recommend follow-up with your primary care provider and discussion about home health care. Please follow-up as directed with care management. Follow up with primary care provider in 3-5 days. Return to ED sooner if any worsening or concerns. Increase oral fluids. You were given an anxiety medication and your blood pressure medications this morning here in the department. Referrals: Dewayne Carrington [Primary Care Provider] - 5 days Discharge Data Discharge Date/Time-TO BE ENTERED AT DEPARTURE: 09/17/21 15:53 Medical Decision Making 71-year-old male presents to the ER via EMS with chief complaint of f orgetfulness, confusion, auditory hallucinations and trouble sleeping which has occurred over the last couple of days. Patient reports that last night he had trouble sleeping and was carrying a chorus of different sounds. He reports that he woke up this morning and it hit me like a ton of bricks. Patient reports that he did not take his daily medication this morning or any food. Patient has a [employer] pacemaker internal defibrillator. He does not complain of any chest pain at this time. He did not complain of any shortness of breath,. He does however report forgetfulness. Other past medical history includes ICD, DVT, atrial fibrillation, coronary artery disease, diabetes. 1208: Spoke with [employer] to have a ICD rep call me back. 1219: Spoke with ICD [employer] rep who reported that there is 0% RV paced 10% atrial paced since July 2021 nothing no defibrillations or shocks in the last 24 hours. See CBC within normal limits, CMP shows anion gap 13.0 BUN 21 creatinine 1.2 GFR 59, glucose 160 magnesium 1.7 which is at his baseline. AST and ALT elevated at 65 and 83. Initial troponin within normal limits. Ethyl alcohol less than 3.0. 1319: Spoke with daughter Nkechi who lives in [place] who reports that she is also concerned and worried he has been more forgetful recently and losing his balance. She does report that he has a granddaughter in [place] named [place] and a sister in [place]. She did leave her phone number which is [phone] 1333: Hospitalist paged to discuss admission. 1347:Spoke with Hospitalist regarding patient, he recommends Care management and outpatient management. 1459:. The care management at bedside for patient evaluation she reports that he is pretty independent he does not really want home health. He is requesting his a.m. medications. She will refer him to the [facility] will arrange transport home with RCT. Amlodipine and lisinopril ordered. Ambulatory here in department prior to discharge. This text was generated using [employer] system, please disregard any oddities of phrase or misspellings. Medical Records Medical records reviewed: Yes I reviewed the patient's medical records. Lab Data Lab results reviewed: Yes I reviewed the patient's lab results. Labs: 09/17/21 15:50 Urine - Reflex from Ua Urine Culture - Pending Laboratory Tests Range/Units 09/17/21 09/17/21 09/17/21 10:50 10:50 13:21 WBC (4.4-10.8) 10^3/uL 7.42 RBC (4.36-5.78) 10^6/uL 4.85 Hgb (13.5-17.5) g/dL 14.6 Hct (40.0-50.0) % 43.8 MCV (80-95) fL 90 MCH (27.0-33.0) pg 30.1 MCHC (32.0-36.0) % 33.3 RDW (11.8-14.1) % 13.8 Plt Count (130-400) 10^3/uL 204 MPV (8.0-11.0) fL 9.2 Immature Gran % 0.4 Neutrophils % 58.3 Lymphocytes % 30.6 Monocytes % 6.7 Eosinophils % 3.5 Basophils % 0.5 Nucleated RBC % (0.0-0.3) % 0.0 Absolute Neutrophils (1.2-6.7) 10^3/uL 4.32 Absolute Lymphocytes (1.2-3.4) 10^3/uL 2.27 Absolute Monocytes (0.1-0.8) 10^3/uL 0.50 Absolute Eosinophils (0.0-0.7) 10^3/uL 0.26 Absolute Basophils (0.0-0.2) 10^3/uL 0.04 Sodium (136-145) mmol/L 142 Potassium (3.5-5.1) mmol/L 4.2 Chloride (98-107) mmol/L 104 Carbon Dioxide (21.0-32.0) mmol/L 25.0 Anion Gap (3-11) mmol/L 13.0 H BUN (7-18) mg/dL 21 H Creatinine (0.70-1.30) mg/dL 1.2 Estimated GFR/1.73 m2 (mL/min/1.73m2) 59.51 Glucose (74-106) mg/dL 160 H Calcium (8.5-10.1) mg/dL 8.9 Magnesium (1.8-2.4) mg/dL 1.7 L Total Bilirubin (0.2-1.0) mg/dL 0.6 AST (15-37) U/L 65 H ALT (16-63) U/L 83 H Alkaline Phosphatase (46-116) U/L 72 Troponin I (<or=60) ng/L < 50 Total Protein (6.4-8.2) g/dL 7.5 Albumin (3.4-5.0) g/dL 4.1 Urine Color (Yellow) Urine Clarity (Clear) Urine pH (5-8) Ur Specific [place] (1.005-1.025) Urine Protein (Negative) mg/dL Urine Ketones (Negative) mg/dL Urine Blood (Negative) Urine Nitrite (Negative) Urine Bilirubin (Negative) Urine Urobilinogen (Up TO 0.2) EU/dL Ur Leukocyte Esterase (Negative) Urine RBC (0-2) HPF Urine WBC (0-5) HPF Ur Epithelial Cells (Negative) HPF Urine Crystals (Negative) HPF Urine Bacteria (Negative) HPF Urine Casts (Negative) LPF Urine Mucus (Negative) Urine Other (Negative) Ur Culture Indicated? Urine Glucose (Negative) mg/dL Urine Opiates Screen (Negative) Urine Methadone Screen Ur Barbiturates Screen (Negative) Ur Tricyclics Screen (Negative) Ur Amphetamines Screen (Negative) U Benzodiazepines Scrn (Negative) Urine Cocaine Screen (Negative) Ur THC Screen (Negative) Ethyl Alcohol (<10) mg/dL < 3.0 COVID-19 Source Nasal/Nares SARS-CoV-2 (PCR) (Negative) Negative Range/Units 09/17/21 09/17/21 09/17/21 13:55 15:50 15:50 WBC (4.4-10.8) 10^3/uL RBC (4.36-5.78) 10^6/uL Hgb (13.5-17.5) g/dL Hct (40.0-50.0) % MCV (80-95) fL MCH (27.0-33.0) pg MCHC (32.0-36.0) % RDW (11.8-14.1) % Plt Count (130-400) 10^3/uL MPV (8.0-11.0) fL Immature Gran % Neutrophils % Lymphocytes % Monocytes % Eosinophils % Basophils % Nucleated RBC % (0.0-0.3) % Absolute Neutrophils (1.2-6.7) 10^3/uL Absolute Lymphocytes (1.2-3.4) 10^3/uL Absolute Monocytes (0.1-0.8) 10^3/uL Absolute Eosinophils (0.0-0.7) 10^3/uL Absolute Basophils (0.0-0.2) 10^3/uL Sodium (136-145) mmol/L Potassium (3.5-5.1) mmol/L Chloride (98-107) mmol/L Carbon Dioxide (21.0-32.0) mmol/L Anion Gap (3-11) mmol/L BUN (7-18) mg/dL Creatinine (0.70-1.30) mg/dL Estimated GFR/1.73 m2 (mL/min/1.73m2) Glucose (74-106) mg/dL Calcium (8.5-10.1) mg/dL Magnesium (1.8-2.4) mg/dL Total Bilirubin (0.2-1.0) mg/dL AST (15-37) U/L ALT (16-63) U/L Alkaline Phosphatase (46-116) U/L Troponin I (<or=60) ng/L < 50 Total Protein (6.4-8.2) g/dL Albumin (3.4-5.0) g/dL Urine Color (Yellow) Yellow Urine Clarity (Clear) Clear Urine pH (5-8) 5.0 Ur Specific [place] (1.005-1.025) 1.020 Urine Protein (Negative) mg/dL Negative Urine Ketones (Negative) mg/dL 15 H Urine Blood (Negative) Negative Urine Nitrite (Negative) Negative Urine Bilirubin (Negative) Negative Urine Urobilinogen (Up TO 0.2) EU/dL 0.2 Ur Leukocyte Esterase (Negative) Trace H Urine RBC (0-2) HPF 3-5 H Urine WBC (0-5) HPF 20-50 H Ur Epithelial Cells (Negative) HPF Negative Urine Crystals (Negative) HPF Negative Urine Bacteria (Negative) HPF Negative Urine Casts (Negative) LPF Negative Urine Mucus (Negative) Negative Urine Other (Negative) Negative Ur Culture Indicated? Yes Urine Glucose (Negative) mg/dL Negative Urine Opiates Screen (Negative) Negative Urine Methadone Screen [employer] Ur Barbiturates Screen (Negative) Negative Ur Tricyclics Screen (Negative) Positive A Ur Amphetamines Screen (Negative) Negative U Benzodiazepines Scrn (Negative) Positive A Urine Cocaine Screen (Negative) Negative Ur THC Screen (Negative) Negative Ethyl Alcohol (<10) mg/dL COVID-19 Source SARS-CoV-2 (PCR) (Negative) HPI General Mode of arrival: EMS . Date/Time Provider Initiated Documentation: 09/17/21 10:32 . Limitations to Documentation: altered mental status . Information obtained by: patient, EMS, RN notes reviewed and old records reviewed . HPI Narrative: 71-year-old male presents to the ER via EMS with chief complaint of forgetfulness, confusion, auditory hallucinations and trouble sleeping which has occurred over the last couple of days. Patient reports that last night he had trouble sleeping and was carrying a chorus of different sounds. He reports that he woke up this morning and it hit me like a ton of bricks. Patient reports that he did not take his daily medication this morning or any food. Patient has a [employer] pacemaker internal defibrillator. He does not complain of any chest pain at this time. He did not complain of any shortness of breath,. He does however report forgetfulness. Other past medical history includes ICD, DVT, atrial fibrillation, coronary artery disease, diabetes. Related Data Home Medications Medication Instructions Recorded Confirmed metformin 1,000 mg tablet 1,000 mg PO BID@0800,1700 05/16/13 08/07/21 (Glucophage) multivitamin (Men's Multi-Vitamin 1 ea PO DAILY 05/16/13 08/07/21 tablet) zolpidem 10 mg tablet 10 mg PO HS PRN PRN 05/16/13 08/07/21 pantoprazole 20 mg tablet,delayed 40 mg PO HS 12/06/13 08/07/21 release (Protonix) acetaminophen 500 mg tablet (Mapap 500 mg PO PRN PRN 12/18/16 08/07/21 Extra Strength) liraglutide 0.6 mg/0.1 mL (18 mg/3 1.8 mg SQ HS 01/19/17 08/07/21 mL) subcutaneous pen injector (Victoza 3-Ruddy) aspirin 81 mg chewable tablet 81 mg PO DAILY 07/23/17 08/07/21 tramadol 50 mg tablet 50 mg PO PRN PRN 07/24/17 08/07/21 nitroglycerin 0.4 mg sublingual 0.4 mg sublingual Q5M PRN 01/31/19 08/07/21 tablet cholecalciferol (vitamin D3) 50 2,000 unit PO DAILY 06/13/19 08/07/21 mcg (2,000 unit) capsule (Vitamin D3) rivaroxaban 20 mg tablet (Xarelto) 20 mg PO DAILY #90 tabs 09/06/19 08/07/21 clonazepam 1 mg tablet 1 mg PO TID PRN 09/21/19 08/07/21 vilazodone 20 mg tablet (Viibryd) 40 mg PO HS 09/21/19 08/07/21 cyanocobalamin (vitamin B-12) 1,000 mcg PO DAILY 12/13/19 08/07/21 1,000 mcg tablet (Vitamin B-12) lamotrigine 100 mg tablet 250 mg PO DAILY 07/09/20 08/07/21 magnesium chloride 64 mg 128 mg PO BID #120 tabs 11/29/20 08/07/21 (magnesium chloride) tablet,delayed release (Mag 64) ferrous gluconate 324 mg (37.5 mg 324 mg PO DAILY 12/04/20 08/07/21 iron) tablet lisinopril 10 mg tablet 5 mg PO QAM 12/04/20 08/07/21 metoprolol succinate 100 mg 100 mg PO BID #180 tabs 12/04/20 08/07/21 tablet,extended release 24 hr atorvastatin 80 mg tablet 20 mg PO HS 12/19/20 08/07/21 amiodarone 200 mg tablet 400 mg PO DAILY 03/20/21 08/07/21 clonazepam 1 mg tablet 1 mg PO DAILY PRN 03/20/21 08/07/21 vitamins [id number] 100 mg-2 0.25 ml IM DAILY 03/20/21 08/07/21 mg-100 mg-2 mg-2 mg/mL injection soln methocarbamol 500 mg tablet 1,000 mg PO QHS PRN muscle spasm 07/22/21 08/07/21 #10 tabs tamsulosin 0.4 mg capsule (Flomax) 0.4 mg PO DAILY #7 caps 07/22/21 08/07/21 glipizide 5 mg tablet, extended 2.5 mg PO DAILY 08/07/21 08/07/21 release 24 hr Previous Rx's Medication Instructions Recorded rivaroxaban 20 mg tablet (Xarelto) 20 mg PO DAILY #90 tabs 09/06/19 magnesium chloride 64 mg 128 mg PO BID #120 tabs 11/29/20 (magnesium chloride) tablet,delayed release (Mag 64) metoprolol succinate 100 mg 100 mg PO BID #180 tabs 12/04/20 tablet,extended release 24 hr methocarbamol 500 mg tablet 1,000 mg PO QHS PRN muscle spasm 07/22/21 #10 tabs tamsulosin 0.4 mg capsule (Flomax) 0.4 mg PO DAILY #7 caps 07/22/21 Allergies Allergy/AdvReac Type Severity Reaction Status Date / Time adhesive tape Allergy Unknown rash Verified 03/20/21 10:01 latex AdvReac Intermediate trouble Verified 03/20/21 10:01 breathing/moving General Stated Complaint: GenMedical SHAILESH: 3 Review of Systems All systems reviewed & are unremarkable except as noted in HPI and below Constitutional Constitutional: Reports as per HPI, Reports difficulty sleeping, Denies head ache(s) and Reports weakness Eyes Eyes: Denies loss of vision ENT Ears, Nose, Mouth, and Throat: Denies headache(s) and Reports disequilibrium Cardiovascular Cardiovascular: Denies chest pain and Denies dyspnea Respiratory Respiratory: Denies dyspnea Gastrointestinal Gastrointestinal: Denies diarrhea, Denies nausea and Denies vomiting Musculoskeletal Musculoskeletal: Reports as per HPI and Reports muscle weakness (Increased left lower extremity weakness) Neurologic Neurologic: Reports behavioral changes, Reports confusion, Denies headache(s), Denies loss of vision, Reports memory loss, Reports sensory deficit, Reports disequilibrium and Reports weakness Psychiatric Psychiatric: Reports behavioral changes, Reports confusion, Reports auditory hallucinations, Reports memory loss and Reports hallucinations PFSH All Active Problems (Updated 09/17/21 @ 15:14 by Mary Ayala) Confusion (Acute) Medication management (Acute) ICD (implantable cardioverter-defibrillator) in place (Acute) [employer] dual lead Incepta longterm current use of 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 medical therapy (Acute) Imbalance (Acute) Hypomagnesemia (Acute) Ischemic cardiomyopathy (Chronic) Discharge planning issues (Acute) DVT prophylaxis (Acute) Dizziness (Acute) Hammer toe (Acute) Peripheral neuropathy (Chronic) Ventricular tachyarrhythmia (Chronic) s/p ICD 2013 Clinical depression (Chronic) GERD (gastroesophageal reflux disease) (Chronic) Obstructive sleep apnea (Chronic) Atrial fibrillation (Chronic) Diverticulosis (Acute) Gastritis (Acute) Unspecified fracture of the lower end of right radius, subsequent encounter for closed fracture with routine healing (Acute 08/12/17) Contusion of left knee, initial encounter (Acute 08/12/17) Disequilibrium (Chronic 11/10/16) Dysphagia (Acute) Rib pain on right side (Acute) Contact dermatitis (Acute) Magnesium deficiency (Acute) Hypertension (Chronic) Diabetes (Chronic) CAD (coronary artery disease) (Chronic) Chronic pain (Chronic) Medical History (Updated 09/17/21 @ 15:14 by Mary Ayala) Anal fissure Esophageal ring Hematuria Hiatal hernia Hyperlipidemia pt. states its a fissure near his coccyx Iron deficiency anemia Lumbar degenerative disc disease Pacemaker Pressure ulcer, buttock Surgical History History of cholecystectomy History of colonoscopy 12/17/18 History of coronary artery stent placement History of esophagogastroduodenoscopy (EGD) 12/17/18 History of permanent cardiac pacemaker placement with defib Family History Father Heart disease Mother Heart disease Brother Alcoholism Social History Smoking/Tobacco Use Status: Current every day Tobacco Type: smokeless tobacco Counseling given: patient declined Smoking risk assessment performed?: Yes Alcohol Intake: former Drug use: Never Substance use type: does not use Details: Pt states he vapes daily current occupation: Retired What type of physical activity do you participate in: bicycling Frequency: 3-4 times per week Do you feel safe at home: Yes Do you feel safe in your relationship?: Yes Exam Narrative Exam Narrative: Constitutional: Alert and oriented x3. Appears stated age. Normal body habitus. Head: Normocephalic, no trauma. Eyes: Pupils PERRL, Red reflex noted, EOM's intact. Eyelids symmetrical without lesions, discharge, or swelling. ENT: Bilateral TM's WNL, External ear normal to inspection, no mastoid TTP, swelling, or erythema, Nasal turbinates WNL, no nasal discharge. Normal dentit ion, Posterior pharynx WNL, no exudate. Chest: RRR, Normal S1, S2, distal pulses intact. Resp: Lungs clear to auscultation bilaterally, no wheezes, rales, or rhonchi. Abdomen: Soft, non-distended, Normoactive bowel sounds all 4 quads. Musculoskeletal: Normal gait, Skin: No suspicious rashes or lesions. Capillary refill less than 2 sec. Neurologic: Gross motor intact, does have some weakness noted on the left lower extremity. Intact dorsiflexion pedal flexion, personal care home administrator are equal bilaterally no facial droop. Tongue is midline. He does have cyclical thinking, forgetfulness. Hematologic/Lymphatic: No ecchymosis, no lymphadenopathy. Psychiatric: See below Course Vital Signs Vital signs: Vital Signs Pulse 61 09/17/21 10:25 Respiratory Rate 11 L 09/17/21 10:25 Blood Pressure 191/75 H 09/17/21 10:25 Pulse Oximetry 98 09/17/21 10:25 Temperature Source Temporal Artery Scan 09/17/21 10:25 Pulse 61 09/17/21 11:03 Pulse 63 09/17/21 11:03 Respiratory Rate 12 09/17/21 11:03 Respiratory Effort 09/17/21 10:33 Respiratory Depth Normal 09/17/21 10:33 Respiratory Pattern Normal 09/17/21 10:33 Blood Pressure 171/81 H 09/17/21 11:03 Blood Pressure Mean 104 09/17/21 11:03 Blood Pressure Position Sitting 09/17/21 10:25 Pulse Oximetry 97 09/17/21 11:03 Oxygen Delivery Method Room Air 09/17/21 10:25 Oxygen Flow Rate 0 09/17/21 10:25 Pain Level 0 09/17/21 10:25 Lab/Test Results Lab/Test Results: Laboratory Tests Range/Units 09/17/21 10:50 WBC (4.4-10.8) 10^3/uL 7.42 RBC (4.36-5.78) 10^6/uL 4.85 Hgb (13.5-17.5) g/dL 14.6 Hct (40.0-50.0) % 43.8 MCV (80-95) fL 90 MCH (27.0-33.0) pg 30.1 MCHC (32.0-36.0) % 33.3 RDW (11.8-14.1) % 13.8 Plt Count (130-400) 10^3/uL 204 MPV (8.0-11.0) fL 9.2 Immature Gran % 0.4 Neutrophils % 58.3 Lymphocytes % 30.6 Monocytes % 6.7 Eosinophils % 3.5 Basophils % 0.5 Nucleated RBC % (0.0-0.3) % 0.0 Absolute Neutrophils (1.2-6.7) 10^3/uL 4.32 Absolute Lymphocytes (1.2-3.4) 10^3/uL 2.27 Absolute Monocytes (0.1-0.8) 10^3/uL 0.50 Absolute Eosinophils (0.0-0.7) 10^3/uL 0.26 Absolute Basophils (0.0-0.2) 10^3/uL 0.04
[2021-09-17 11:18] LABS: ALT 83 U/L (16-63); AST 65 U/L (15-37); Albumin 4.1 g/dL (3.4-5.0); Alkaline Phosphatase 72 U/L (46-116); BUN 21 mg/dL (7-18); Bilirubin, Total 0.6 mg/dL (0.2-1.0); CREATININE 1.2 mg/dL (0.70-1.30); Calcium 8.9 mg/dL (8.5-10.1); Chloride 104 mmol/L (98-107); Estimated GFR 59.51 (mL/min/1.73m2); Glucose 160 mg/dL (74-106); Magnesium 1.7 mg/dL (1.8-2.4); Potassium 4.2 mmol/L (3.5-5.1); Sodium 142 mmol/L (136-145); Total Protein 7.5 g/dL (6.4-8.2); Troponin I < 50 ng/L (<or=60)
[2021-09-17 11:22] LABS: ETHANOL BLOOD < 3.0 mg/dL (<10)
[2021-09-17] MEDS: LORazepam 0.5 MG TAB 1 MG PO (11:44)
--- NOTE | 2021-09-17 12:00 | DI.CT_ITS ---
Exam(s) CT HEAD WO EXAM: CT HEAD WO CLINICAL HISTORY: Confusion,. TECHNIQUE: Imaging Protocol: Axial computed tomography images with coronal and sagittal reformatted images were created and reviewed COMPARISON: CT CT HEAD CERVICAL SPINE WO from 07/22/2021 FINDINGS: There are no skull fractures nor fluid in the visualized paranasal sinuses. There is no evidence of intracranial hemorrhage, mass effect, or shift of midline structures. There are no extra-axial fluid collections. The ventricles are not enlarged or shifted and there is no blo od within the ventricular system nor within the basal cisterns. IMPRESSION: No acute intracranial findings on this noninfused CT scan of the brain. No significant change compared to the prior CT scan of 07/22/2021 RADIATION DOSE DELIVERED: 835.72mGy.cm Total DLP DATA REPOSITORY: All CT scans at this facility are submitted to the National Radiology Data Registry (NRDR) Dose Index Registry (DIR) with the [employer] (ACR). RADIATION OPTIMIZATION: All CT scans at this facility use at least one of these dose optimization te chniques: automated exposure control; mA and/or kV adjustment per patient size (includes targeted exa ms where dose is matched to clinical indication); or iterative reconstruction.
[2021-09-17 13:26] LABS: Source Nasal/Nares
--- NOTE | 2021-09-17 14:00 | RT.EKG_ITS ---
APPROVED REPORT Exam: Resting ECG Reason for Exam: repeat trop Patient Location: E HR:60 bpm ECG Measurements Heart Rate 60 AXIS AL 261 P 11 QRSd 121 QRS -70 QT 461 T 16 QTc 460 Conclusion Sinus rhythm...normal P axis, V-rate 60- 99 Prolonged AL interval...AL >220, Nonspecific IVCD with LAD. Inferior Q >35mS, II III aVF
[2021-09-17 14:24] LABS: COVID-19 PCR Negative (Negative)
[2021-09-17 14:28] LABS: Troponin I < 50 ng/L (<or=60)
[2021-09-17] MEDS: Amiodarone 200 MG TAB 400 MG PO (15:43)
[2021-09-17] MEDS: Lisinopril 5 MG TAB PO (15:44)
--- NOTE | 2021-09-17 15:55 | PDOC.ERCMPRO ---
- If Service Date Differs Date of service: 09/17/21 Time of Service: 15:55 Care Management Progress Note Marquez presents in the ED for confusion and disequilibrium. At the request of ED provider, JEANNINE meets with Marquez to discuss Home Health services. Marquez talks about his mental health history and shares he has been psychiatrically hospitalized twice in the past for depression. 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 He is currently seeing Bessy Burr at [facility] for medication management and is wondering if he might have forgotten to take some of his medication and that is what led up to the confusion. He also shares that the dosage of some of his medication is being titrated down as he is wishes to eventually decrease the number of pills he takes every day. Marquez talks about how he sets up his medication every morning into two separate cups (am and pm) and says this method has been working well for him for a long time. Marquez drives, is independent at baseline and is oriented x 3 at the time of our meeting. Marquez does not currently meet the homebound requirements for Home Health services. Marquez is agreeable to JEANNINE making a referral to [facility] who can support him in living independently and safely in his home.
[2021-09-17 15:58] LABS: Bilirubin Negative (Negative); Blood Negative (Negative); Clarity Clear (Clear); Glucose Negative (Negative); Ketones 15 mg/dL (Negative); Leukocyte Esterase Trace (Negative); Nitrite Negative (Negative); Urobilinogen 0.2 EU/dL (Up TO 0.2)
[2021-09-17 16:45] LABS: *BARBITURATES SCREEN URINE Negative (Negative); *BENZODIAZEPINES SCREEN URINE Positive (Negative); Cannabinoids THC Negative (Negative); Cocaine Screen,Urine Negative (Negative); OPIATES URINE SCREEN Negative (Negative); Tricyclic Antidepressants Positive (Negative)
[2021-09-17 16:53] LABS: Bacteria Negative HPF (Negative); C & S Indicated? Yes; Casts Negative LPF (Negative); Crystals Negative HPF (Negative); Epithelial Cells Negative HPF (Negative); Mucus Negative (Negative); Other Cells Negative (Negative); WBC 20-50 HPF (0-5)
[2021-09-17 22:38] LABS: *AMPHETAMINES SCREEN URINE Negative (Negative)
== END 2021-09-17 15:53 | disposition home or self-care (01) ==
PROVIDERS: Emergency Provider Registered Nurse Emergency; PCP Family Medicine
DX: R41.0 Disorientation, unspecified (principal); E87.8 Other disorders of electrolyte and fluid balance, not elsewhere classified; R53.1 Weakness; R44.0 Auditory hallucinations; Z79.899 Other long term (current) drug therapy
CPT/HCPCS: 36415; 80053; 80307; 87635; 93005; 99284; 70450; 80320; 81003; 81015; 83735; 84484; 85025; 87086; 93010

== ENCOUNTER → 2021-09-26 13:44 | Outpatient (BNVA) | payer OTHER, SELFPAY | PROVIDERS: PCP Family Medicine; Referring Provider Family Medicine; Visit Provider Internal Medicine Cardiovascular Disease | DX: I47.2 Ventricular tachycardia (principal); I48.0 Paroxysmal atrial fibrillation; I25.5 Ischemic cardiomyopathy; I25.10 Atherosclerotic heart disease of native coronary artery without angina pectoris; Z95.810 Presence of automatic (implantable) cardiac defibrillator | CPT/HCPCS: 99214; 99213 ==

== ENCOUNTER → 2021-10-18 00:44 | Outpatient (CLI) | payer OTHER, SELFPAY ==
--- NOTE | 2021-10-18 11:50 | DI.RAD_ITS ---
Exam(s) RF BARIUM SWALLOW EXAM: RF BARIUM SWALLOW CLINICAL HISTORY: ESOPHAGEAL RING,K22.2,DYSPHAGIA,R13.10,CHOKING EPISODES TECHNIQUE: 2D and realtime digital imaging was performed. CONTRAST MATERIAL: Oral barium Oral water soluble contrast was administered. COMPARISON: CR XR RIBS LT W PA LAT CHEST from 07/17/2021 FINDINGS: Performed both standing and recumbent. Single and air contrast technique. Bipolar left subclavian pacemaker noted. ESOPHAGRAM: The swallowing mechanism appears grossly intact. There is no obvious aspiration on this study. No e vidence of hypertense upper esophageal sphincter and no evidence of Zenker's diverticulum. No fixed lesions in the esophagus. No tertiary waves. Distally there is no hiatal hernia. No obvious Richard ki ring. The GE junction region appeared unremarkable. No obvious reflux demonstrated. IMPRESSION: No significant focal findings on this esophagram study. If clinically indicated follow-up modified b arium swallow performed our department with the speech therapist can be formed, given the history her e. RADIATION DOSE DELIVERED: vitor Sorensen=60.5 mGy
[2021-10-18] MEDS: Barium Sulfate 60% W/V 355 ML BTL 710 ML PO (11:57)
== END ==
PROVIDERS: PCP Family Medicine; Visit Provider Family Medicine
DX: K22.2 Esophageal obstruction (principal); R13.10 Dysphagia, unspecified
CPT/HCPCS: 74221

== ENCOUNTER → 2021-11-04 00:35 | Outpatient (CLI) | payer OTHER, SELFPAY ==
--- NOTE | 2021-11-04 07:00 | DI.US_ITS ---
Exam(s) US RENAL EXAM: US RENAL CLINICAL HISTORY: monitor known stones,nephrolithiasis, n20.0. TECHNIQUE: Henry scale, color and spectral Doppler were used. COMPARISON: CT CT CHEST/ABD/PEL W from 07/22/2021 FINDINGS: Renal size in cm: Right: Left: Echogenicity: Normal Hydronephrosis: No Cyst or mass: Cysts left kidney. Largest 3.7 cm maximal dimension Nephrolithiasis: Nonobstructing stone lower pole left kidney 8 millimeters. Other questionable echog enic foci in the upper and mid left kidney. Small echogenic focus lower pole right kidney. Stone ve rsus artifact. Bladder:Not well evaluated, under distended. Both ureteral jets visualized. Prevoid vol:21 Postvoid vol:Not performed Prostate not able to be visualized due to under distention of the bladder. IMPRESSION: 8 millimeters stone lower pole left kidney. Stable left renal cysts. No hydronephrosis. DATA REPOSITORY:
== END ==
PROVIDERS: PCP Family Medicine; Visit Provider Urology
DX: N20.0 Calculus of kidney (principal); N28.1 Cyst of kidney, acquired
CPT/HCPCS: 76770

== ENCOUNTER → 2021-11-05 10:16 | Outpatient (BNVA) | payer OTHER, SELFPAY | PROVIDERS: PCP Family Medicine; Referring Provider Family Medicine; Visit Provider Urology | DX: N28.1 Cyst of kidney, acquired (principal); N20.0 Calculus of kidney | CPT/HCPCS: 99214 ==

== ENCOUNTER 2021-11-19 15:06 | Inpatient (IN) | payer OTHER, SELFPAY ==
[2021-11-19] VITALS (36 sets, daily range): BP systolic 94–147; BP diastolic 56–74; PULSE 59–69; RESP 11–16; TEMP 36.2–36.4; O2SAT 92–99
--- NOTE | 2021-11-19 15:00 | DI.CT_ITS ---
Exam(s) CT HEAD CERVICAL SPINE WO EXAM: CT HEAD CERVICAL SPINE WO CLINICAL HISTORY: fall/ pain, anticoagulated. TECHNIQUE: Imaging Protocol: Axial computed tomography images with coronal and sagittal reformatted images were created and reviewed COMPARISON: CT CT HEAD WO from 09/17/2021 FINDINGS: CT Head: Ventricles and Extra axial spaces: Normal in size and morphology for the patient's age. Hemorrhage: None. Cerebral parenchyma: No acute territorial infarct. Midline shift: None. Brainstem/Cerebellum: Normal. Calvarium: Normal. Visualized Paranasal sinuses/Mastoids: Clear. Soft Tissues: Unremarkable. CT Cervical Spine: Bones: No acute fracture or subluxation. Degenerative changes are seen in the cervical spine. Soft Tissues: Unremarkable. Lung Apices: Clear. IMPRESSION: 1. No acute intracranial process. 2. No acute fracture or subluxation in the cervical spine. 3. Results of this exam have been verbally communicated with provider. RADIATION DOSE DELIVERED: 1,446.41mGy.cm Total DLP DATA REPOSITORY: All CT scans at this facility are submitted to the National Radiology Data Registry (NRDR) Dose Index Registry (DIR) with the [employer] (A[employer]). RADIATION OPTIMIZATION: All CT scans at this facility use at least one of these dose optimization te chniques: automated exposure control; mA and/or kV adjustment per patient size (includes targeted exa ms where dose is matched to clinical indication); or iterative reconstruction.
--- NOTE | 2021-11-19 15:30 | DI.CT_ITS ---
Exam(s) CT CHEST/ABD/PEL W CT THORACIC LUMBAR SPINE REC EXAM: CT CHEST/ABD/PEL W and CT thoracic and lumbar spine recons CLINICAL HISTORY: fall left abd, chest and back pain TECHNIQUE: Imaging Protocol: Axial computed tomography images with coronal and sagittal reformatted images were created and reviewed CONTRAST MATERIAL: Intravenous: Omnipaque 350 contrast volume:100 mL Oral: No COMPARISON: CT CT THORACIC LUMBAR SPINE REC from 11/19/2021 FINDINGS: CHEST: Tracheobronchial tree: Patent where visualized. Pulmonary parenchyma: No dominant mass. Opacities seen in the lung bases, left greater than right. No architectural distortion. Visualized thyroid gland: Unremarkable. Mediastinum and Ly: No dominant adenopathy or fluid collection. The esophagus is unremarkable. Pleura: There is a small left pleural effusion. There is a small left anterior pneumothorax. Heart: The heart is not dilated. Coronary artery calcification is present. No pericardial effusion. Pulmonary arteries: The pulmonary arteries are not adequately opacified for evaluation of pulmonary e mboli. Aorta: Thoracic aorta non-dilated. Atherosclerosis. Lymph nodes: Within normal limits. Tubes, Catheters, and Lines: The pacemaker is in good position. Soft tissues: Unremarkable. Bones:Within normal limits for the patient's age. There are acute nondisplaced fractures of the post erior aspects of the left 6, 7th and 9th ribs. There are mildly displaced fractures involving the po sterior aspects of the left 8th and 10th ribs. Thoracic spine recons: Age-appropriate degenerative changes are seen. No acute fracture or subluxati on is present. ABDOMEN: Liver: Normal density. No measurable mass. Portal, Superior Mesenteric, and Splenic Veins: Unremarkable. Gallbladder and Biliary Tract: Status post cholecystectomy. No significant biliary ductal dilatation . Pancreas: Normal density, no abnormal calcifications or inflammatory process. Spleen: Normal. Adrenals: No masses seen. Kidneys: Normal size, contour and axis. Nonobstructing left renal stone. Simple left renal cysts. N o follow-up is recommended. Abdominal Aorta: Abdominal portion non-dilated. Atherosclerosis is present. Bowel: No obstruction or bowel wall thickening. Appendix is unremarkable. There are few scattered div erticuli but no evidence of acute diverticulitis. Peritoneal Cavity: No ascites, collection or mesenteric inflammatory response. No free air. Lymph Nodes: Within normal limits. Bones: Within normal limits for the patient's age. Soft Tissues: Mild infiltration of the subcutaneous fat overlying the left anterior abdominal wall wh ich may represent a small contusion. Lumbar spine CT recons: Age-appropriate degenerative changes are present. No acute fracture or sublu xation is seen. PELVIS: Bladder: Symmetric distention, no gross wall thickening. Reproductive Organs: Unremarkable as visualized. Lymph Nodes: Within normal limits. Bones: Within normal limits. IMPRESSION: 1. Multiple left rib fractures. 2. Small left pleural effusion. 3. Small left pleural effusion. 4. No acute abdominal or pelvic organ injury. 5. Results of this exam have been verbally communicated with provider. RADIATION DOSE DELIVERED: Total DLP DATA REPOSITORY: All CT scans at this facility are submitted to the National Radiology Data Registry (NRDR) Dose Index Registry (DIR) with the [employer] (ACR). RADIATION OPTIMIZATION: All CT scans at this facility use at least one of these dose optimization te chniques: automated exposure control; mA and/or kV adjustment per patient size (includes targeted exa ms where dose is matched to clinical indication); or iterative reconstruction.
--- NOTE | 2021-11-19 15:48 | W.ED.GENAD ---
Discharge Plan Disposition Patient Disposition: [facility] INPATIENT Condition: Fair Discharge Details Clinical Impression: Multiple fractures of ribs of left side, Contusion of left lung, Pneumothorax on left, Pleural effusion Admit Date/Time: 11/19/21 18:41 Admit Provider: Daniela Villafana Attending Provider: Daniela Villafana Primary Care Provider: Dewayne Carrington ED Provider: Alfie Garcia Medical Decision Making Patient presenting to the emergency department via EMS for chief complaint of fall with head injury left-sided chest and back pain with some abdominal pain. Patient has significant past medical history of being on blood thinners, ICD, DVT, atrial fibrillation, coronary artery disease, diabetes, obstructive sleep apnea. Patient denies any loss of consciousness and states he was walking on stairs and fell approximately 5 stairs. Patient does state that he has been having some chronic sciatica that has been going on for a month. Patient denies any numbness or tingling, weakness to extremities, focal neurological findings. Physical exam shows significant C-spine tenderness but patient has already been called, tenderness to the sternum, left chest wall, and posterior back with left upper and lower quadrant abdominal pain. Pelvis is stable, extremity shows skin tears without repairable laceration, foreign movement and no bony prominence tenderness to extremities. We will plan on CT imaging of the head and neck along with chest abdomen pelvis due to patient being on blood thinners and reporting fall with significant pain. We will treat patient's pain pending results. Pending imaging labs are reviewed and patient has unremarkable nondiagnostic CBC, sodium of 135 glucose of 178 and a T and AST slightly elevated but at patient's baseline level. Spoke to radiologist and CT imaging of the head and C-spine showed no acute intracranial findings or acute fracture. CT imaging of the chest abdomen pelvis showed acute rib fractures on the left posterior aspect of 6 through 10, pulmonary contusion, and small hemothorax. We will plan on contacting general surgery for admission for pain control and further monitoring. At this time I do not feel the patient requires chest tube but will discuss with general surgery. Discussed case with general surgery and they agreed to admit patient for further pain control and monitoring. Agree with no need for chest tube or interventions at this time. Imaging Data Radiologic Study: Imaging: CT Scan Radiologist's impression: CT chest abd pelvis T and L spine FINDINGS: CHEST: Tracheobronchial tree: Patent where visualized. Pulmonary parenchyma: No dominant mass. Opacities seen in the lung bases, left greater than right. No architectural distortion. Visualized thyroid gland: Unremarkable. Mediastinum and Ly: No dominant adenopathy or fluid collection. The esophagus is unremarkable. Pleura: There is a small left pleural effusion. There is a small left anterior pneumothorax. Heart: The heart is not dilated. Coronary artery calcification is present. No pericardial effusion. Pulmonary arteries: The pulmonary arteries are not adequately opacified for evaluation of pulmonary emboli. Aorta: Thoracic aorta non-dilated. Atherosclerosis. Lymph nodes: Within normal limits. Tubes, Catheters, and Lines: The pacemaker is in good position. Soft tissues: Unremarkable. Bones:Within normal limits for the patient's age. There are acute nondisplaced fractures of the posterior aspects of the left 6, 7th and 9th ribs. There are mildly displaced fractures involving the posterior aspects of the left 8th and 10th ribs. Thoracic spine recons: Age-appropriate degenerative changes are seen. No acute fracture or subluxation is present. ABDOMEN: Liver: Normal density. No measurable mass. Portal, Superior Mesenteric, and Splenic Veins: Unremarkable. Gallbladder and Biliary Tract: Status post cholecystectomy. No significant biliary ductal dilatation. Pancreas: Normal density, no abnormal calcifications or inflammatory process. Spleen: Normal. Adrenals: No masses seen. Kidneys: Normal size, contour and axis. Nonobstructing left renal stone. Simple left renal cysts. No follow-up is recommended. Abdominal Aorta: Abdominal portion non-dilated. Atherosclerosis is present. Bowel: No obstruction or bowel wall thickening. Appendix is unremarkable. There are few scattered diverticuli but no evidence of acute diverticulitis. Peritoneal Cavity: No ascites, collection or mesenteric inflammatory response. No free air. Lymph Nodes: Within normal limits. Bones: Within normal limits for the patient's age. Soft Tissues: Mild infiltration of the subcutaneous fat overlying the left anterior abdominal wall which may represent a small contusion. Lumbar spine CT recons: Age-appropriate degenerative changes are present. No acute fracture or subluxation is seen. PELVIS: Bladder: Symmetric distention, no gross wall thickening. Reproductive Organs: Unremarkable as visualized. Lymph Nodes: Within normal limits. Bones: Within normal limits. IMPRESSION: 1. Multiple left rib fractures. 2. Small left pleural effusion. 3. Small left pleural effusion. 4. No acute abdominal or pelvic organ injury. 5. Results of this exam have been verbally communicated with provider. Radiologic Study #2: Imaging: CT Scan Radiologist's impression: FINDINGS: CT Head: Ventricles and Extra axial spaces: Normal in size and morphology for the patient's age. Hemorrhage: None. Cerebral parenchyma: No acute territorial infarct. Midline shift: None. Brainstem/Cerebellum: Normal. Calvarium: Normal. Visualized Paranasal sinuses/Mastoids: Clear. Soft Tissues: Unremarkable. CT Cervical Spine: Bones: No acute fracture or subluxation. Degenerative changes are seen in the cervical spine. Soft Tissues: Unremarkable. Lung Apices: Clear. IMPRESSION: 1. No acute intracranial process. 2. No acute fracture or subluxation in the cervical spine. 3. Results of this exam have been verbally communicated with provider. HPI General Mode of arrival: EMS. Date/Time Provider Initiated Documentation: 11/19/21 15:44. Limitations to Documentation: no limitations. Information obtained by: patient, EMS and RN notes reviewed. History of Present Illness 71 year old M presents to the emergency department with the chief complaint of Fall with left-sided pain, neck pain, back pain, described as moderate, with intensity rated at 8. Quality is described as sharp, and is localized to the neck, chest, back and abdomen. Patient reports no radiation. Patient started experiencing this hour(s) (<1) and it has been constant. No relieving factors improve symptom(s), No exacerbating factors reported . Patient notes denies confusion, headaches, shortness of breath and syncope. Patient did receive the following treatments prior to arrival, none Related Data Home Medications Medication Instructions Recorded Confirmed metformin 1,000 mg tablet 1,000 mg PO BID@0800,1700 05/16/13 11/19/21 (Glucophage) multivitamin (Men's Multi-Vitamin 1 ea PO DAILY 05/16/13 11/19/21 tablet) zolpidem 10 mg tablet 10 mg PO HS PRN PRN 05/16/13 11/19/21 pantoprazole 20 mg tablet,delayed 40 mg PO HS 12/06/13 11/19/21 release (Protonix) liraglutide 0.6 mg/0.1 mL (18 mg/3 1.8 mg SQ HS 01/19/17 11/19/21 mL) subcutaneous pen injector (Victoza 3-Ruddy) aspirin 81 mg chewable tablet 81 mg PO DAILY 07/23/17 11/19/21 tramadol 50 mg tablet 50 mg PO PRN PRN 07/24/17 11/19/21 cholecalciferol (vitamin D3) 50 2,000 unit PO DAILY 06/13/19 11/19/21 mcg (2,000 unit) capsule (Vitamin D3) rivaroxaban 20 mg tablet (Xarelto) 20 mg PO DAILY #90 tabs 09/06/19 11/19/21 clonazepam 1 mg tablet 1 mg PO DAILY 09/21/19 11/19/21 cyanocobalamin (vitamin B-12) 1,000 mcg PO DAILY 12/13/19 11/05/21 1,000 mcg tablet (Vitamin B-12) magnesium chloride 64 mg 128 mg PO BID #120 tabs 11/29/20 11/19/21 (magnesium chloride) tablet,delayed release (Mag 64) ferrous gluconate 324 mg (37.5 mg 324 mg PO DAILY 12/04/20 11/19/21 iron) tablet lisinopril 10 mg tablet 5 mg PO QAM 12/04/20 11/05/21 atorvastatin 80 mg tablet 20 mg PO HS 12/19/20 11/19/21 metoprolol succinate 100 mg 100 mg PO BID #180 tabs 09/20/21 11/19/21 tablet,extended release 24 hr amiodarone 200 mg tablet 200 mg PO DAILY 09/26/21 11/19/21 lamotrigine 100 mg tablet 250 mg PO DAILY 10/03/21 11/19/21 polyethylene glycol 3350 17 gram 17 g PO DAILY 10/03/21 11/19/21 oral powder packet (Miralax) psyllium husk 0.52 gram capsule 0.52 g PO DAILY 10/03/21 11/19/21 (Fiber (psyllium husk)) aripiprazole 5 mg tablet (Abilify) 5 mg PO DAILY 11/05/21 11/19/21 folic acid 1 mg tablet 1 mg PO DAILY 11/05/21 11/19/21 mecobalamin (vitamin B12) 1,000 1,000 mcg PO DAILY 11/05/21 11/19/21 mcg chewable tablet Previous Rx's Medication Instructions Recorded rivaroxaban 20 mg tablet (Xarelto) 20 mg PO DAILY #90 tabs 09/06/19 magnesium chloride 64 mg 128 mg PO BID #120 tabs 11/29/20 (magnesium chloride) tablet,delayed release (Mag 64) metoprolol succinate 100 mg 100 mg PO BID #180 tabs 09/20/21 tablet,extended release 24 hr Allergies Allergy/AdvReac Type Severity Reaction Status Date / Time adhesive tape Allergy Unknown rash Verified 11/19/21 14:42 latex AdvReac Intermediate trouble Verified 11/19/21 14:42 breathing/moving General Stated Complaint: Trauma SHAILESH: 3 Review of Systems Constitutional Constitutional: Denies frequent falls and Denies headache(s) Eyes Eyes: Denies change in vision ENT Ears, Nose, Mouth, and Throat: Denies dizziness, Denies facial pain, Denies headache(s) and Reports neck pain Cardiovascular Cardiovascular: Reports chest pain, Denies syncope and Denies dyspnea Respiratory Respiratory: Denies cough, Reports pain on inspiration and Denies dyspnea Gastrointestinal Gastrointestinal: Reports abdominal pain, Denies nausea and Denies vomiting Musculoskeletal Musculoskeletal: Reports as per HPI, Reports back pain and Reports neck pain Integumentary/Breasts Skin/Breast: Denies erythema and Reports wounds Neurologic Neurologic: Denies dizziness, Denies syncope, Denies frequent falls, Denies headache(s) and Denies paresthesias Psychiatric Psychiatric: Reports irritability (Secondary to pain) Hematologic/Lymphatic Hematologic/Lymphatic: Reports other (Patient on blood thinner) [facility] All Active Problems (Updated 11/19/21 @ 22:07 by Alfie Garcia NP) Multiple fractures of ribs of left side (Acute) Contusion of left lung (Acute) Pneumothorax on left (Acute) Pleural effusion (Acute) Kidney stones (Chronic) Medication management (Acute) ICD (implantable cardioverter-defibrillator) in place (Acute) 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 current use of 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 medical therapy (Acute) Imbalance (Acute) Hypomagnesemia (Acute) Ischemic cardiomyopathy (Chronic) Discharge planning issues (Acute) DVT prophylaxis (Acute) Dizziness (Acute) Hammer toe (Acute) Peripheral neuropathy (Chronic) Ventricular tachyarrhythmia (Chronic) s/p ICD 2013 Clinical depression (Chronic) GERD (gastroesophageal reflux disease) (Chronic) Obstructive sleep apnea (Chronic) Atrial fibrillation (Chronic) Diverticulosis (Acute) Gastritis (Acute) Unspecified fracture of the lower end of right radius, subsequent encounter for closed fracture with routine healing (Acute 08/12/17) Contusion of left knee, initial encounter (Acute 08/12/17) Disequilibrium (Chronic 11/10/16) Dysphagia (Acute) Rib pain on right side (Acute) Contact dermatitis (Acute) Magnesium deficiency (Acute) Hypertension (Chronic) Diabetes (Chronic) CAD (coronary artery disease) (Chronic) Chronic pain (Chronic) Medical History Anal fissure Degenerative disc disease Depression determined by examination Dermatitis Diabetic peripheral neuropathy Esophageal ring Family history of nephrolithiasis Frequent falls Hallucinations Hard stool Hematuria Hiatal hernia Hyperlipidemia pt. states its a fissure near his coccyx Iron deficiency anemia Lumbar degenerative disc disease Medication monitoring encounter Pacemaker Pressure ulcer, buttock Steatohepatitis Type 2 diabetes mellitus Surgical History History of cholecystectomy History of colonoscopy 12/17/18 History of coronary artery stent placement History of esophagogastroduodenoscopy (EGD) 12/17/18 History of permanent cardiac pacemaker placement with defib Family History Father Heart disease Mother Heart disease Brother Alcoholism Social History Smoking/Tobacco Use Status: Current every day Tobacco Type: smokeless tobacco Counseling given: patient declined Smoking risk assessment performed?: Yes Alcohol Intake: former Drug use: Never Substance use type: does not use Details: Pt states he vapes daily current occupation: Retired What type of physical activity do you participate in: bicycling Frequency: 3-4 times per week Do you feel safe at home: Yes Do you feel safe in your relationship?: Yes Exam Const General: cooperative, no acute distress, not diaphoretic and not ill appearing Orientation: alert, awake and oriented x3 Limitations: mental status not altered [facility] Head: normal to inspection, no palpable skull fracture, normocephalic, atraumatic, no Eduardo's sign and no raccoon eyes Ears: external ears normal General nose exam: external nose normal Face and sinus: normal facial exam Eyes General: appearance normal, both eyes and all related structures Neck Neck: normal visual inspection, trachea midline, supple and no anterior neck swelling Chest Chest: tenderness rib (Mid axillary diffuse lower with radiation to back) and sternum Resp Effort & Inspection: normal respiratory effort and able to speak in complete sentences Auscultation: clear to auscultation bilaterally Cardio Palpation: normal PMI Rate: regular rate Rhythm: regular rhythm Heart Sounds: S1 normal and S2 normal Pulses: radial pulses present bilaterally 2+ GI Inspection: normal to inspection and no abdominal wall ecchymosis Palpation: soft, not firm, guarding in the LLQ and in the LUQ, not rigid and tender in the LLQ and in the LUQ Auscultation: hypoactive bowel sounds Back/Spine/Pelvis Cervical Spine: normal cervical lordosis, collar present and cervical spinal tenderness Thoracic/Lumbar Spine: thoracic spinal tenderness and lumbar spinal tenderness Pelvis: no pain with anterior-posterior compression, no pain with lateral compression and no tenderness over symphysis pubis Skin Trauma: abrasion (Multiple to left upper extremity and old abrasions to lower left extremity) Neuro General: patient alert, patient awake, patient oriented x3, moves all extremities, not confused and not obtunded Cognition: normal cognition Speech: speech normal Psych Mental Status: mental status grossly normal Mood: irritable mood (Which patient states is secondary to ongoing back pain w acute injury) Course Vital Signs Vital signs: Vital Signs Temperature 36.2 C L 11/19/21 14:36 Pulse 64 11/19/21 14:36 Respiratory Rate 14 11/19/21 14:36 Blood Pressure 147/73 H 11/19/21 14:36 Pulse Oximetry 98 11/19/21 14:36 Temperature 36.2 C L 11/19/21 14:36 Temperature Source Temporal Artery Scan 11/19/21 14:36 Pulse 64 11/19/21 14:36 Respiratory Rate 14 11/19/21 14:36 Respiratory Effort Non-Labored 11/19/21 14:48 Respiratory Depth Normal 11/19/21 14:48 Respiratory Pattern Normal 11/19/21 14:48 Blood Pressure 147/73 H 11/19/21 14:36 Blood Pressure Position Supine 11/19/21 14:36 Pulse Oximetry 98 11/19/21 14:36 Oxygen Delivery Method Room Air 11/19/21 14:36 Oxygen Flow Rate 0 11/19/21 14:36 Pain Level 8 11/19/21 14:48
[2021-11-19 16:03] LABS: Abs Immature Grans 0.05 10^3/uL (0.0-0.06); Absolute Basophil Count 0.03 10^3/uL (0.0-0.2); Absolute Eosinophil Count 0.33 10^3/uL (0.0-0.7); Absolute Monocyte Count 0.38 10^3/uL (0.1-0.8); Absolute Neutrophil Count 3.38 10^3/uL (1.2-6.7); Basophils % 0.5; Eosinophils % 5.8; HCT 40.3 % (40.0-50.0); HGB 14.1 g/dL (13.5-17.5); Immature Grans % 0.9; Lymphocytes % 26.5; MCH 31.5 pg (27.0-33.0); MCV 90 fL (80-95); MPV 9.3 fL (8.0-11.0); Monocytes % 6.7; Neutrophils % 59.6; Platelet Count 178 10^3/uL (130-400); RBC 4.48 10^6/uL (4.36-5.78); RDW 13.6 % (11.8-14.1); RDW-SD 44.6 fL; WBC 5.67 10^3/uL (4.4-10.8)
[2021-11-19] MEDS: HYDROmorphone 2 MG/ML VIAL 0.5 MG IVP (16:08)
[2021-11-19 16:25] LABS: ALT 81 U/L (16-63); AST 70 U/L (15-37); Albumin 3.4 g/dL (3.4-5.0); Alkaline Phosphatase 65 U/L (46-116); Anion Gap 8.4 mmol/L (3-11); BUN 12 mg/dL (7-18); Bilirubin, Total 0.4 mg/dL (0.2-1.0); CO2 24.6 mmol/L (21.0-32.0); CREATININE 0.9 mg/dL (0.70-1.30); Calcium 8.5 mg/dL (8.5-10.1); Chloride 102 mmol/L (98-107); Glucose 178 mg/dL (74-106); Potassium 3.8 mmol/L (3.5-5.1); Sodium 135 mmol/L (136-145); Total Protein 6.6 g/dL (6.4-8.2)
[2021-11-19] MEDS: HYDROmorphone 2 MG/ML VIAL 1 MG IVP ×2 (17:05→19:10)
[2021-11-19] MEDS: Omnipaque 350 MG/ML 100 ML BTL IV (17:18)
[2021-11-19 18:01] LABS: Source Nasal/Nares
[2021-11-19] MEDS: Normal Saline Flush 10 ML SYR IVP ×3 (18:29→22:17)
[2021-11-19 18:56] LABS: COVID-19 PCR Negative (Negative)
--- NOTE | 2021-11-19 19:12 | W.PM.HP.N ---
Date of service: 11/19/21 Time of Service: 19:12 Assessment and Plan Assessment and plan (1) Multiple fractures of ribs of left side: Status: Acute Assessment and plan: - - Fall in the home resulting in pulmonary contusion and multiple rib fractures. This was probably exacerbated and contributed to by the patient's acute left sciatica and ongoing disequilibrium. -We will continue with the patient to develop a multimodality pain control plan -Pulmonary toilet [place] ordered. He is not currently on any inhalers. -Patient is a former smoker and current vapor. Questionable if pulmonary consultation is warranted. He only uses at albuterol as needed. He says he passed his recent PFTs -Patient is questionable whether he is a candidate for rib plating. He does have some degree of osteopenia. He also has some cardiac issues and I with the recent EF of 40% and left ventricle hypokinesis. He has a pacing defibrillator in place and is on Xarelto for PAF. Check hemoglobin in a.m. -Physical therapy is consulted. Patient probably in need a MRI of the low back and possible injections for chronic low back pain and sciatica as outpt. -Patient is on Xarelto at home. This is currently being held. Lovenox was not ordered because he is still fully anticoagulated on Xarelto. And for concerns of bleed secondary to trauma. SCDs are ordered currently. -Echo 12/08: onclusion Left Ventricle : External defibrillator is in place making parasternal views unattainable. Left ventricular systolic function is mildly decreased. There is normal left ventricular wall thickness. There is global hypokinesis of the left ventricle. LVEF is 48%. Right Ventricle : Right ventricle is not well visualized. Right ventricular systolic function could not be assessed. The RVSP is 29.5 mmHg. Atria : The left atrium size is normal. Right atrium is not well visualized. Aortic Valve : The aortic valve is normal in structure. Trace aortic regurgitation. There is no aortic valvular stenosis. Mitral Valve : The mitral valve is normal in structure. Trace mitral regurgitation. No evidence of mitral valve stenosis. Great Vessels : Aortic root is not visualized. Ascending aorta is not visualized. IVC is normal in size and collapses >50% with inspiration. Compared to study from [facility] in 2017, there is no significant change. 75 minutes is spent in consultation today (2) Contusion of left lung: Status: Acute (3) Pneumothorax on left: Status: Acute (4) Hemothorax on left: Status: Acute (5) ICD (implantable cardioverter-defibrillator) in place: Status: Acute (6) [facility] current use of 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 medical therapy: Status: Acute (7) Imbalance: Status: Acute (8) Ischemic cardiomyopathy: Status: Chronic (9) Dizziness: Status: Acute (10) Peripheral neuropathy: Status: Chronic (11) GERD (gastroesophageal reflux disease): Status: Chronic (12) Obstructive sleep apnea: Status: Chronic (13) Atrial fibrillation: Status: Chronic Qualifiers: Atrial fibrillation type: paroxysmal Qualified Code(s): I48.0 - Paroxysmal atrial fibrillation (14) Diverticulosis: Status: Acute (15) Diabetes: Status: Chronic Qualifiers: Diabetes mellitus complication status: without complication Diabetes mellitus long-term insulin use: 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 transplanted heart: [place] heart Qualified Code(s): I25.10 - Atherosclerotic heart disease of [place] coronary artery without angina pectoris (17) Chronic pain: Status: Chronic (18) Degenerative disc disease: (19) Hiatal hernia: (20) Hyperlipidemia: (21) Steatohepatitis: (22) Contusion of left elbow and forearm: Status: Acute (23) Abrasion hip/leg: Status: Acute (24) Hypokinesia of left ventricle: Status: Acute (25) Left sided sciatica: Status: Acute (26) Contusion of left chest wall: Status: Acute History of Present Illness Narrative: Patient is a 71-year-old white male who was in his normal state of health tonight when he tripped over a rug and fell down some stairs. He does have a history of disequilibrium and loses his balance frequently. He denies passing out or losing consciousness. He has memories for all the events. He was not having any chest pain or shortness of breath just prior to the fall. He does have a pacing defibrillator in place. He is on blood thinners for repair episodic A. fib. He is currently in normal sinus rhythm. He denies any head pain, dizziness currently, changes in vision or hearing. he is Having significant chest wall pain but not does not appear to be having cardiac pain. He does have a history of smoking and COPD. He has a chronic smoker's cough. He does still vape. He does not wear oxygen at home. He has seen urology for his disequilibrium. He has loss of vibrational tone and early neuropathy from his diabetes. He is also been having issues with severe sciatica lately, this may have contributed to his fall. He currently has pain in the left posterior chest wall and his left low back and left hamstrings. I did review all the CTs that were ordered. Review of Systems All systems reviewed & are unremarkable except as noted in HPI and below PFSH All Active Problems (Updated 11/19/21 @ 23:06 by Daniela Villafana, DO) Contusion of left chest wall (Acute) Left sided sciatica (Acute) Hypokinesia of left ventricle (Acute) EF 48% Abrasion hip/leg (Acute) Contusion of left elbow and forearm (Acute) Hemothorax on left (Acute) minimal Multiple fractures of ribs of left side (Acute) Contusion of left lung (Acute) Pneumothorax on left (Acute) Pleural effusion (Acute) Kidney stones (Chronic) Medication management (Acute) ICD (implantable cardioverter-defibrillator) in place (Acute) [email or web address]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 medical therapy (Acute) Imbalance (Acute) Hypomagnesemia (Acute) Ischemic cardiomyopathy (Chronic) Discharge planning issues (Acute) DVT prophylaxis (Acute) Dizziness (Acute) Hammer toe (Acute) Peripheral neuropathy (Chronic) Ventricular tachyarrhythmia (Chronic) s/p ICD 2013 Clinical depression (Chronic) GERD (gastroesophageal reflux disease) (Chronic) Obstructive sleep apnea (Chronic) Atrial fibrillation (Chronic) Diverticulosis (Acute) Gastritis (Acute) Unspecified fracture of the lower end of right radius, subsequent encounter for closed fracture with routine healing (Acute 08/12/17) Contusion of left knee, initial encounter (Acute 08/12/17) Disequilibrium (Chronic 11/10/16) Dysphagia (Acute) Rib pain on right side (Acute) Contact dermatitis (Acute) Magnesium deficiency (Acute) Hypertension (Chronic) Diabetes (Chronic) CAD (coronary artery disease) (Chronic) Chronic pain (Chronic) Medical History Anal fissure Degenerative disc disease Depression determined by examination Dermatitis Diabetic peripheral neuropathy Esophageal ring Family history of nephrolithiasis Frequent falls Hallucinations Hard stool Hematuria Hiatal hernia Hyperlipidemia pt. states its a fissure near his coccyx Iron deficiency anemia Lumbar degenerative disc disease Medication monitoring encounter Pacemaker Pressure ulcer, buttock Steatohepatitis Type 2 diabetes mellitus Surgical History History of cholecystectomy History of colonoscopy 12/17/18 History of coronary artery stent placement History of esophagogastroduodenoscopy (EGD) 12/17/18 History of permanent cardiac pacemaker placement with defib Family History Father Heart disease Mother Heart disease Brother Alcoholism Social History Smoking/Tobacco Use Status: Current every day Tobacco Type: smokeless tobacco Counseling given: patient declined Smoking risk assessment performed?: Yes Alcohol Intake: former Drug use: Never Substance use type: does not use Details: Pt states he vapes daily current occupation: Retired What type of physical activity do you participate in: bicycling Frequency: 3-4 times per week Do you feel safe at home: Yes Do you feel safe in your relationship?: Yes Meds Allergies and Home Medications Allergies Allergy/AdvReac Type Severity Reaction Status Date / Time adhesive tape Allergy Unknown rash Verified 11/19/21 14:42 latex AdvReac Intermediate trouble Verified 11/19/21 14:42 breathing/moving Home Medications Medication Instructions Recorded Confirmed Type metformin 1,000 mg tablet 1,000 mg PO BID@0800,1700 05/16/13 11/19/21 History (Glucophage) multivitamin (Men's Multi-Vitamin 1 ea PO DAILY 05/16/13 11/19/21 History tablet) zolpidem 10 mg tablet 10 mg PO HS PRN PRN 05/16/13 11/19/21 History pantoprazole 20 mg tablet,delayed 40 mg PO HS 12/06/13 11/19/21 History release (Protonix) liraglutide 0.6 mg/0.1 mL (18 mg/3 1.8 mg SQ HS 01/19/17 11/19/21 History mL) subcutaneous pen injector (Victoza 3-Ruddy) aspirin 81 mg chewable tablet 81 mg PO DAILY 07/23/17 11/19/21 History tramadol 50 mg tablet 50 mg PO PRN PRN 07/24/17 11/19/21 History cholecalciferol (vitamin D3) 50 2,000 unit PO DAILY 06/13/19 11/19/21 History mcg (2,000 unit) capsule (Vitamin D3) rivaroxaban 20 mg tablet (Xarelto) 20 mg PO DAILY #90 tabs 09/06/19 11/19/21 Rx clonazepam 1 mg tablet 1 mg PO DAILY 09/21/19 11/19/21 History cyanocobalamin (vitamin B-12) 1,000 mcg PO DAILY 12/13/19 11/05/21 History 1,000 mcg tablet (Vitamin B-12) magnesium chloride 64 mg 128 mg PO BID #120 tabs 11/29/20 11/19/21 Rx (magnesium chloride) tablet,delayed release (Mag 64) ferrous gluconate 324 mg (37.5 mg 324 mg PO DAILY 12/04/20 11/19/21 History iron) tablet lisinopril 10 mg tablet 5 mg PO QAM 12/04/20 11/05/21 History atorvastatin 80 mg tablet 20 mg PO HS 12/19/20 11/19/21 History metoprolol succinate 100 mg 100 mg PO BID #180 tabs 09/20/21 11/19/21 Rx tablet,extended release 24 hr amiodarone 200 mg tablet 200 mg PO DAILY 09/26/21 11/19/21 History lamotrigine 100 mg tablet 250 mg PO DAILY 10/03/21 11/19/21 History polyethylene glycol 3350 17 gram 17 g PO DAILY 10/03/21 11/19/21 History oral powder packet (Miralax) psyllium husk 0.52 gram capsule 0.52 g PO DAILY 10/03/21 11/19/21 History (Fiber (psyllium husk)) aripiprazole 5 mg tablet (Abilify) 5 mg PO DAILY 11/05/21 11/19/21 History folic acid 1 mg tablet 1 mg PO DAILY 11/05/21 11/19/21 History mecobalamin (vitamin B12) 1,000 1,000 mcg PO DAILY 11/05/21 11/19/21 History mcg chewable tablet Exam Const General: cooperative, healthy appearing and in distress mild Nutritional Appearance: average body habitus and well nourished Orientation: alert, awake and oriented x3 [facility] Head: normal to inspection, no palpable skull fracture, normocephalic, atraumatic, no abrasions, no Eduardo's sign, no contusions, no hematomas, no scalp tenderness and No periorbital ecchymosis Ears: hearing grossly normal bilaterally and external ears normal General nose exam: external nose normal, nares normal, nasal discharge present and no epistaxis Face and sinus: normal facial exam, sinuses tender, face symmetric, no abrasions, no crepitus and no ecchymosis Mouth: oral mucosae normal, lip normal, tongue normal, moist mucous membranes and No mouth trauma Teeth and gingiva: multiple restorations Eyes General: appearance normal, both eyes and all related structures Alignment and Position: alignment normal Periorbital: periorbital findings normal Eyelids: eyelids normal Sclera: sclerae normal Pupils: PERRL EOM: EOM intact bilaterally Neck Neck: no anterior neck swelling, tender (C56- SP. Neck CT neg. Cleared by ED staff. no drugs/ETOH) and no JVD Other: Mild tenderness over the C5 and 6 spinous processes. Patient is able to do active range of motion has no significant pain. No carotid bruits. Chest Chest: abnormal inspection of the chest, localized rib tenderness with anteroposterior compression (Left lower ribs anteriorly and posteriorly) and pacemaker Resp Effort & Inspection: normal respiratory effort and able to speak in complete sentences Auscultation: clear to auscultation bilaterally, no rales, no rhonchi and no wheezes Cardio Jugular venous pressure: no JVD Rate: regular rate Rhythm: regular rhythm GI Inspection: normal to inspection and non-distended Palpation: soft and No ascites Auscultation: normal bowel sounds Rectal Exam: deferred Back/Spine/Pelvis Back: No CVA tenderness and back tenderness (left) Cervical Spine: cervical ROM normal, collar present (C-spine cleared by ED. CT of C-spine negative. No drugs or alcohol use) and cervical muscular tenderness (Mild on the right) Thoracic/Lumbar Spine: paraspinal tenderness (left lumbar), thoraco-lumbar spasm (left lumbar), No lumbar spinal tenderness and straight leg raise positive (left pt had similar pain prior to fall) Pelvis: no pain with anterior-posterior compression, pain with lateral compression and no buttock tenderness Skin Other: - Left forearm abrasion and lacerations. These were dressed by the ER. -Minor left lower extremity superficial abrasions Neuro General: patient alert, patient awake, patient oriented x3, moves all extremities (Pain with moving left leg in the hamstrings and lumbar area), normal light touch, pain and propioception, no focal motor deficits and CN's II-XI intact bilaterally Cranial Nerves: CN's II-XI intact bilaterally Cognition: normal cognition Speech: speech normal Extrem General: capillary refill normal, no pedal edema and edema Right upper extremity: normal to inspection, full ROM and normal capillary refill Left upper extremity: elbow/forearm Details: tenderness, abrasion, ecchymosis and distal pulses intact Right lower extremity: normal to inspection and normal capillary refill; no edema Left lower extremity: normal to inspection, normal capillary refill and hip/thigh Details: abrasion Other: No numbness or tingling in upper and lower extremities. 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 S4 and S5 motor nerves intact Psych Appearance: grossly normal Mental Status: mental status grossly normal Speech and Movement: speech and movement normal Mood: congruent mood Affect: normal affect Attitude: cooperative Thought Process: normal Thought Content: normal Insight: insight good Results Labs Result diagrams: 11/19/21 15:52 11/19/21 15:52 Labs: Laboratory Results - last 24 hr 11/19/21 11/19/21 11/19/21 15:52 15:52 17:58 WBC 5.67 RBC 4.48 Hgb 14.1 Hct 40.3 MCV 90 MCH 31.5 MCHC 35.0 RDW 13.6 Plt Count 178 MPV 9.3 Immature Gran % 0.9 Neutrophils % 59.6 Lymphocytes % 26.5 Monocytes % 6.7 Eosinophils % 5.8 Basophils % 0.5 Nucleated RBC % 0.0 Absolute Neutrophils 3.38 Absolute Lymphocytes 1.50 Absolute Monocytes 0.38 Absolute Eosinophils 0.33 Absolute Basophils 0.03 Sodium 135 L Potassium 3.8 Chloride 102 Carbon Dioxide 24.6 Anion Gap 8.4 BUN 12 Creatinine 0.9 Estimated GFR/1.73 m2 >= 60.00 Glucose 178 H Calcium 8.5 Total Bilirubin 0.4 AST 70 H ALT 81 H Alkaline Phosphatase 65 Total Protein 6.6 Albumin 3.4 COVID-19 Source Nasal/Nares SARS-CoV-2 (PCR) Negative Last Vital Signs Temp 36.2 C L 11/19/21 14:36 Pulse 63 11/19/21 18:30 Resp 15 11/19/21 18:31 BP 122/60 11/19/21 18:30 Pulse Ox 98 11/19/21 18:31
[2021-11-19] MEDS: Acetaminophen 500 MG TAB 1000 MG PO (21:27)
[2021-11-19] MEDS: Metoprolol CR 100 MG TABCR PO (21:28)
[2021-11-19] MEDS: Gabapentin 100 MG CAP PO (21:28)
[2021-11-19] MEDS: Lactated Ringers 1,000 ML 30 ML IV (21:28)
[2021-11-19] MEDS: Pantoprazole 20 MG TABCR 40 MG PO (21:28)
[2021-11-19] MEDS: Zolpidem 10 MG TAB PO (21:50)
[2021-11-19] MEDS: HYDROmorphone 2 MG/ML SYR 0.5 MG IVP (22:16)
[2021-11-20] VITALS (136 sets, daily range): BP systolic 88–120; BP diastolic 42–57; PULSE 54–62; RESP 9–25; TEMP 36.4–36.8; O2SAT 92–99
--- NOTE | 2021-11-20 | DI.RAD_ITS ---
Exam(s) XR SHOULDER LT COMPLETE 2+V EXAM: XR SHOULDER LT COMPLETE 2+V CLINICAL HISTORY: L shoulder pain following a fall. TECHNIQUE: 2D digital imaging was performed. Three views. COMPARISON: CR XR CHEST 2V PA LATERAL from 11/20/2021 FINDINGS: BONES: Left rib fractures are noted.. No bony destructive lesion is seen. A pacemaker is noted. No pneumothorax is seen. JOINTS: No dislocation present. Mild degenerative changes of the AC joint and glenohumeral joint. SOFT TISSUE: Normal. IMPRESSION: Mild degenerative changes of the shoulder. No shoulder fracture. Left rib fractures are noted. DATA REPOSITORY: RADIATION DOSE DELIVERED:
[2021-11-20] MEDS: Normal Saline Flush 10 ML SYR IVP ×2 (01:41→08:04)
[2021-11-20] MEDS: Ketorolac 15 MG/ML VIAL IVP ×3 (01:41→18:18)
[2021-11-20] MEDS: oxyCODONE 5 MG TAB PO ×2 (04:17→21:28)
[2021-11-20] MEDS: Acetaminophen 500 MG TAB 1000 MG PO ×3 (04:17→18:18)
[2021-11-20 06:16] LABS: Abs Immature Grans 0.03 10^3/uL (0.0-0.06); Absolute Basophil Count 0.03 10^3/uL (0.0-0.2); Absolute Eosinophil Count 0.29 10^3/uL (0.0-0.7); Absolute Lymphocyte Count 1.57 10^3/uL (1.2-3.4); Absolute Monocyte Count 0.44 10^3/uL (0.1-0.8); Basophils % 0.4; HCT 36.6 % (40.0-50.0); HGB 12.6 g/dL (13.5-17.5); Immature Grans % 0.4; Lymphocytes % 21.6; MCHC 34.4 % (32.0-36.0); MCV 90 fL (80-95); MPV 9.3 fL (8.0-11.0); Monocytes % 6.1; Neutrophils % 67.5; Platelet Count 158 10^3/uL (130-400); RBC 4.06 10^6/uL (4.36-5.78); RDW 13.8 % (11.8-14.1); RDW-SD 45.4 fL; WBC 7.26 10^3/uL (4.4-10.8)
[2021-11-20 06:42] LABS: Creatine Kinase 68 U/L (39-308); NT-proBNP 71 pg/mL (<300); Troponin I < 50 ng/L (<or=60)
[2021-11-20] MEDS: Psyllium PKT 1 EACH PO (07:57)
[2021-11-20] MEDS: Lidocaine 5% Patch 1 PATCH TP (07:57)
[2021-11-20] MEDS: Polyethylene Glycol 3350 17 GM PACKET PO (07:57)
[2021-11-20] MEDS: Gabapentin 100 MG CAP PO ×3 (07:58→21:29)
[2021-11-20] MEDS: lamoTRIgine 100 MG TAB 250 MG PO (07:58)
[2021-11-20] MEDS: Lisinopril 10 MG TAB 5 MG PO (08:00)
[2021-11-20] MEDS: Amiodarone 200 MG TAB PO (08:00)
--- NOTE | 2021-11-20 08:00 | DI.RAD_ITS ---
Exam(s) XR CHEST 2V PA LATERAL EXAM: XR CHEST 2V PA LATERAL CLINICAL HISTORY: f/u fall/ptx/pulm contusion/hemothorax TECHNIQUE: 2D digital imaging was performed. COMPARISON: CR,RF RF BARIUM SWALLOW from 10/18/[address] CHEST/ABD/PEL W from 11/19/[address] THORACIC LUMBAR SPINE REC from 11/19/2021 FINDINGS: Heart size is normal. AP view is somewhat limited by overlying leads and poor inspiration.. A pacem kyle is noted. There is a small left pleural effusion. There is atelectasis versus infiltrate or co ntusion at the left posterior lung base. Left rib fractures are seen. No pneumothorax is visible. IMPRESSION: Small left pleural effusion and adjacent posterior basilar atelectasis versus contusion. DATA REPOSITORY: RADIATION DOSE DELIVERED:
[2021-11-20] MEDS: HYDROmorphone 2 MG/ML SYR 0.5 MG IVP ×3 (08:04→23:49)
[2021-11-20] MEDS: Insulin Aspart 300 UNITS/3 ML PEN SC ×4 (08:20→21:27)
--- NOTE | 2021-11-20 08:59 | W.MEDCONSULT ---
Date of service: 11/20/21 Time of Service: 08:59 Assessment and Plan Assessment and plan (1) Multiple fractures of ribs of left side: Status: Acute (2) Hemothorax on left: Status: Acute (3) Ischemic cardiomyopathy: Status: Chronic (4) H/O ventricular tachycardia: Status: Acute (5) Atrial fibrillation: Status: Chronic Qualifiers: Atrial fibrillation type: paroxysmal Qualified Code(s): I48.0 - Paroxysmal atrial fibrillation (6) Contusion of left chest wall: Status: Acute (7) Left sided sciatica: Status: Acute (8) Left shoulder pain: Status: Acute (9) Type 2 diabetes mellitus: Assessment and plan: - I have requested a L shoulder XR - agree with holding anticoagulation (on it for Afib only, no h/o DVTs/PEs, does not need to be bridged) - avoid IVF since the patient is able to eat and drink. - I have requested interrogation of AICD to ensure leads not damanged during fall. - I have asked nursing to review the patient's medications with the patient - if gabapentin is not a new drug, would benefit from an increased dose. - Continue amiodarone - due to borderline BPs, I have split up the long acting metoprolol into lopressor with holding parameters. - consider incentive spirometry. Thank you for this consult - hospitalists will continue to follow with you. History of Present Illness History of Present Illness Chief Complaint: Consult for general medical management Narrative: Mr Hendrix is a 71 year old male with PMHx of Afib on xarelto, Cardiomyopathy/Chronic systolic CHF with LVEF of 48% w/ h/o Vtach on amiodaron and s/p AICD, NIDDM2 with neuropathy and imbalance, ambulatory dysfunction with prior falls and rib fractures, who was admitted to [facility] ICU under the surgical service for blunt chest trauma with multiple left rib fractures following a mechanical fall down the stairs. The patient states that he thinks he had placed the cane poorly when going down the stairs and denies LOC. He landed on his face and his left side. He reports ongoing sciatica pain (this is an issue he has been struggling with as an outpatient), L-sided thoracic pain, and left shoulder pain. The patient has been on room air. His imaging reveals a small left pleural effusion (?hemothorax) with adjacent atelectasis vs contusion. Hospitalist consult was requested for general medical management. Consults Consult date: 11/20/21 Requesting physician: Juwan Saldivar Review of Systems All systems reviewed & are unremarkable except as noted in HPI and below PFSH All Active Problems (Updated 11/20/21 @ 10:34 by Jessica Moody MD) Left shoulder pain (Acute) H/O ventricular tachycardia (Acute) Contusion of left chest wall (Acute) Left sided sciatica (Acute) Hypokinesia of left ventricle (Acute) EF 48% Abrasion hip/leg (Acute) Contusion of left elbow and forearm (Acute) Hemothorax on left (Acute) minimal Multiple fractures of ribs of left side (Acute) Contusion of left lung (Acute) Pneumothorax on left (Acute) Pleural effusion (Acute) Kidney stones (Chronic) Medication management (Acute) ICD (implantable cardioverter-defibrillator) in place (Acute) [employer] 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 of 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 medical therapy (Acute) Imbalance (Acute) Hypomagnesemia (Acute) Ischemic cardiomyopathy (Chronic) Discharge planning issues (Acute) DVT prophylaxis (Acute) Dizziness (Acute) Hammer toe (Acute) Peripheral neuropathy (Chronic) Ventricular tachyarrhythmia (Chronic) s/p ICD 2013 Clinical depression (Chronic) GERD (gastroesophageal reflux disease) (Chronic) Obstructive sleep apnea (Chronic) Atrial fibrillation (Chronic) Diverticulosis (Acute) Gastritis (Acute) Unspecified fracture of the lower end of right radius, subsequent encounter for closed fracture with routine healing (Acute 08/12/17) Contusion of left knee, initial encounter (Acute 08/12/17) Disequilibrium (Chronic 11/10/16) Dysphagia (Acute) Rib pain on right side (Acute) Contact dermatitis (Acute) Magnesium deficiency (Acute) Hypertension (Chronic) Diabetes (Chronic) CAD (coronary artery disease) (Chronic) Chronic pain (Chronic) Medical History Anal fissure Degenerative disc disease Depression determined by examination Dermatitis Diabetic peripheral neuropathy Esophageal ring Family history of nephrolithiasis Frequent falls Hallucinations Hard stool Hematuria Hiatal hernia Hyperlipidemia pt. states its a fissure near his coccyx Iron deficiency anemia Lumbar degenerative disc disease Medication monitoring encounter Pacemaker Pressure ulcer, buttock Steatohepatitis Type 2 diabetes mellitus Surgical History History of cholecystectomy History of colonoscopy 12/17/18 History of coronary artery stent placement History of esophagogastroduodenoscopy (EGD) 12/17/18 History of permanent cardiac pacemaker placement with defib Family History Father Heart disease Mother Heart disease Brother Alcoholism Social History Smoking/Tobacco Use Status: Current every day Tobacco Type: smokeless tobacco Counseling given: patient declined Smoking risk assessment performed?: Yes Alcohol Intake: former Drug use: Never Substance use type: does not use Details: Pt states he vapes daily current occupation: Retired What type of physical activity do you participate in: bicycling Frequency: 3-4 times per week Do you feel safe at home: Yes Do you feel safe in your relationship?: Yes Exam Narrative Exam Narrative: General: Pleasant elderly male who is having breakfast, falling asleep periodically, A&Ox3 Neurological: A&Ox3, decreased sensation B feet, no focal deficits Psychiatric: Appropriate speech pattern content Skin: visible skin intact HEENT: Atraumatic, normocephalic, EOMI, MMM, clear oropharynx, no submandibular or cervical lymphadenopathy, no goiter or JVD Cardiovascular: RRR, no m/r/g Lungs: Decreased breath sounds on the L Gastrointestinal: soft,nontender, nondistended Genitourinary: deferred Extremities: no edema BLEs, no wounds in B feet Results Last Vital Signs Temp 36.5 C 11/20/21 04:07 Pulse 60 11/20/21 04:07 Resp 15 11/20/21 04:07 BP 101/57 L 11/20/21 04:07 Pulse Ox 92 11/20/21 04:07 Labs Result diagrams: 11/20/21 05:59 11/19/21 15:52 Labs: Laboratory Results - last 24 hr 11/19/21 11/19/21 11/19/21 15:52 15:52 17:58 WBC 5.67 RBC 4.48 Hgb 14.1 Hct 40.3 MCV 90 MCH 31.5 MCHC 35.0 RDW 13.6 Plt Count 178 MPV 9.3 Immature Gran % 0.9 Neutrophils % 59.6 Lymphocytes % 26.5 Monocytes % 6.7 Eosinophils % 5.8 Basophils % 0.5 Nucleated RBC % 0.0 Absolute Neutrophils 3.38 Absolute Lymphocytes 1.50 Absolute Monocytes 0.38 Absolute Eosinophils 0.33 Absolute Basophils 0.03 Sodium 135 L Potassium 3.8 Chloride 102 Carbon Dioxide 24.6 Anion Gap 8.4 BUN 12 Creatinine 0.9 Estimated GFR/1.73 m2 >= 60.00 Glucose 178 H Calcium 8.5 Total Bilirubin 0.4 AST 70 H ALT 81 H Alkaline Phosphatase 65 Creatine Kinase Troponin I NT-Pro-B Natriuret Pep Total Protein 6.6 Albumin 3.4 COVID-19 Source Nasal/Nares SARS-CoV-2 (PCR) Negative 11/20/21 11/20/21 05:59 05:59 WBC 7.26 RBC 4.06 L Hgb 12.6 L Hct 36.6 L MCV 90 MCH 31.0 MCHC 34.4 RDW 13.8 Plt Count 158 MPV 9.3 Immature Gran % 0.4 Neutrophils % 67.5 Lymphocytes % 21.6 Monocytes % 6.1 Eosinophils % 4.0 Basophils % 0.4 Nucleated RBC % 0.0 Absolute Neutrophils 4.90 Absolute Lymphocytes 1.57 Absolute Monocytes 0.44 Absolute Eosinophils 0.29 Absolute Basophils 0.03 Sodium Potassium Chloride Carbon Dioxide Anion Gap BUN Creatinine Estimated GFR/1.73 m2 Glucose Calcium Total Bilirubin AST ALT Alkaline Phosphatase Creatine Kinase 68 Troponin I < 50 NT-Pro-B Natriuret Pep 71 Total Protein Albumin COVID-19 Source SARS-CoV-2 (PCR) Imaging Additional studies: CT head/c-spine: 1. No acute intracranial process.? 2. No acute fracture or subluxation in the cervical spine. CT chest/abdomen/pelvis; 1. Multiple left rib fractures. 2. Small left pleural effusion.? 3. Small left pleural effusion. 4. No acute abdominal or pelvic organ injury. CT thoracic and lumbar spine: 1. Multiple left rib fractures. 2. Small left pleural effusion.? 3. Small left pleural effusion. 4. No acute abdominal or pelvic organ injury. CXR: Small left pleural effusion and adjacent posterior basilar atelectasis versus contusion. ?
--- NOTE | 2021-11-20 09:00 | RT.EKG_ITS ---
APPROVED REPORT Exam: Resting ECG Reason for Exam: fall, h/o Afib Patient Location: I HR:55 bpm ECG Measurements Heart Rate 55 AXIS ND 291 P 0 QRSd 116 QRS -64 QT 640 T [id number] QTc 613 Conclusion Sinus rhythm...normal P axis, V-rate 50- 99 Prolonged ND interval...ND >220, V-rate 50- 90 Left atrial enlargement...P, P'>60mS, <-0.15mV V1 Inferior infarct, old...Q >35mS, II III aVF Probable anterolateral infarct, age indeterm...Q >35mS, T neg, V2-V6,I,aVL Baseline wander in lead(s) V1
[2021-11-20] MEDS: Metoprolol 50 MG TAB PO ×3 (10:00→23:40)
[2021-11-20] MEDS: ARIPiprazole 5 MG TAB PO (10:00)
--- NOTE | 2021-11-20 10:34 | INITIAL_ITS ---
- If Service Date Differs Date of service: 11/20/21 Time of Service: 10:34 Care Management Initial Assess REASON FOR HOSPITALIZATION:: Blunt Chest Trauma/ Multiple rib fx PAST MEDICAL HISTORY/PAST SURGICAL HISTORY:: All Active Problems. Contusion of left chest wall (Acute). Left sided sciatica (Acute). Hypokinesia of left ventricle (Acute). EF 48%. Abrasion hip/leg (Acute). Contusion of left elbow and forearm (Acute). Hemothorax on left (Acute). minimal. Multiple fractures of ribs of left side (Acute). Contusion of left lung (Acute). Pneumothorax on left (Acute). Pleural effusion (Acute). Kidney stones (Chronic). Medication management (Acute). ICD (implantable cardioverter-defibrillator) in place (Acute). [employer] dual lead [employer]cept[employer]. half-way current use of 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 medical therapy (Acute). Imbalance (Acute). Hypomagnesemia (Acute). Ischemic cardiomyopathy (Chronic). Discharge planning issues (Acute). DVT prophylaxis (Acute). Dizziness (Acute). Hammer toe (Acute). Peripheral neuropathy (Chronic). Ventricular tachyarrhythmia (Chronic). s/p ICD 2013. Clinical depression (Chronic). GERD (gastroesophageal reflux disease) (Chronic). Obstructive sleep apnea (Chronic). Atrial fibrillation (Chronic). Diverticulosis (Acute). Gastritis (Acute). Unspecified fracture of the lower end of right radius, subsequent encounter for closed fracture with routine healing (Acute 08/12/17). Contusion of left knee, initial encounter (Acute 08/12/17). Disequilibrium (Chronic 11/10/16). Dysphagia (Acute). Rib pain on right side (Acute). Contact dermatitis (Acute). Magnesium deficiency (Acute). Hypertension (Chronic). Diabetes (Chronic). CAD (coronary artery disease) (Chronic). Chronic pain (Chronic). Medical History. Anal fissure. Degenerative disc disease. Depression determined by examination. Dermatitis. Diabetic peripheral neuropathy. Esophageal ring. Family history of nephrolithiasis. Frequent falls. Hallucinations. Hard stool. Hematuria. Hiatal hernia. Hyperlipidemia. pt. states its a fissure near his coccyx. Iron deficiency anemia. Lumbar degenerative disc disease. Medication monitoring encounter. Pacemaker. Pressure ulcer, buttock. Steatohepatitis. Type 2 markell betes mellitus. Surgical History. History of cholecystectomy. History of colonoscopy. 12/17/18. History of coronary artery stent placement. History of esophagogastroduodenoscopy (EGD). 12/17/18. History of permanent cardiac pacemaker placement. with defib PREVIOUS FUNCTIONAL STATUS/SOCIAL/FAMILY SUPPORTS:: Pato lives alone in an apartment in [place], [place] He has one daughter, Nkechi, who is currently living and working in [place]. Pato is . His of a pulmonary embolus and sepsis in 2009 in [place] where they were living at the time. 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 He is independent at baseline but does admit to having some balance issues. CURRENT FUNCTIONAL STATUS:: Marquez was lying in bed when CM met with him. He is being cared for in the ICU currently. He reported that per MD, he will likely go to the OR tomorrow to help stabilize his ribs, as he has multiple fractures. He stated that his pain is manageable when he is very still, but if he moves or coughs it becomes 10/10 pain. He was pleasant and engaged well in conversation, despite his pain. CM will continue to follow. ADVANCE DIRECTIVES:: On file, Nkechi Macias, daughter, listed as agent. Has patient been provided with info about the portal/API?: Yes Did the patient sign up for the portal?: No CODE STATUS:: Full Code INSURANCE COVERAGE / FINANCIAL ISSUES:: [employer] CURRENT HOME/COMMUNITY SERVICES/EQUIPMENT:: No current services or equipment. PRIMARY CARE PHYSICIAN:: Dewayne Carrington POTENTIAL DISCHARGE NEEDS:: Evaluations for further needs, follow up appointments. PATIENT/FAMILY EDUCATION NEEDS:: Review discharge instructions and limitations, discussion of self care needs including ask me three. ANTICIPATED BARRIERS TO DISCHARGE:: None identified. TRANSPORTATION:: Via private vehicle by family. PLAN:: Anticipate Marquez will return home once medically cleared. His grand daughter will drive him home via private vehicle. He will follow up with his PCP and discharge plan of care. CM will continue to follow.
--- NOTE | 2021-11-20 10:40 | IN_ITS ---
Date of service: 11/20/21 Time of Service: 10:40 PT Notes Visit Reasons: Blunt Chest Trauma/Mult Rib Fx/+Blood Thinners Physical Therapy Inpatient Initial Evaluation Date: 11/20/2021 Referring Doctor: Daniela Villafana MD PT Orders: PT CONSULT: Fall/mult rib fractures Precautions: Fall. Standard. Activity as tolerated. Patient Profile/Admitting Diagnosis: Pato is a 72-year-old male who presented to the ED with left-sided chest/back/abdominal pain from a fall on 5 steps at his apartment building Patient is diagnosed with a small left pleural effusion and non-displaced fracture of the posterior aspects of the left sixth, seventh, and ninth ribs as well as a mildly displaced fracture of the posterior left eighth and 10th ribs. PMHX: All Active Problems?(Updated 11/19/21 @ 23:06 by Daniela Villafana DO) Contusion of left chest wall (Acute) Left sided sciatica (Acute) Hypokinesia of left ventricle (Acute) EF 48% Abrasion hip/leg (Acute) Contusion of left elbow and forearm (Acute) Hemothorax on left (Acute) minimal Multiple fractures of ribs of left side (Acute) Contusion of left lung (Acute) Pneumothorax on left (Acute) Pleural effusion (Acute) Kidney stones (Chronic) Medication management (Acute) ICD (implantable cardioverter-defibrillator) in place (Acute) [employer] dual lead Incepta intermediate current use of 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 medical therapy (Acute) Imbalance (Acute) Hypomagnesemia (Acute) Ischemic cardiomyopathy (Chronic) Discharge planning issues (Acute) DVT prophylaxis (Acute) Dizziness (Acute) Hammer toe (Acute) Peripheral neuropathy (Chronic) Ventricular tachyarrhythmia (Chronic) s/p ICD 2013 Clinical depression (Chronic) GERD (gastroesophageal reflux disease) (Chronic) Obstructive sleep apnea (Chronic) Atrial fibrillation (Chronic) Diverticulosis (Acute) Gastritis (Acute) Unspecified fracture of the lower end of right radius, subsequent encounter for closed fracture with routine healing (Acute 08/12/17) Contusion of left knee, initial encounter (Acute 08/12/17) Disequilibrium (Chronic 11/10/16) Dysphagia (Acute) Rib pain on right side (Acute) Contact dermatitis (Acute) Magnesium deficiency (Acute) Hypertension (Chronic) Diabetes (Chronic) CAD (coronary artery disease) (Chronic) Chronic pain (Chronic) Medical History? Anal fissure Degenerative disc disease Depression determined by examination Dermatitis Diabetic peripheral neuropathy Esophageal ring Family history of nephrolithiasis Frequent falls Hallucinations Hard stool Hematuria Hiatal hernia Hyperlipidemia pt. states its a fissure near his coccyx Iron deficiency anemia Lumbar degenerative disc disease Medication monitoring encounter Pacemaker Pressure ulcer, buttock Steatohepatitis Type 2 diabetes mellitus Surgical History? History of cholecystectomy History of colonoscopy 12/17/18 History of coronary artery stent placement History of esophagogastroduodenoscopy (EGD) 12/17/18 History of permanent cardiac pacemaker placement with defib Social History/Home Situation: Patient lives alone at the [facility]. The apartment building has a ramp, front stairs, and side stairs to enter. He uses his SPC for all indoor and outdoor ambulation. Likes to bike a lot using his hybrid bike. Equipment Owned/DME: SPC Subjective: Agreeable to consult. Pleasant and cooperative. He believes that his cane may have gotten caught in one of the side railing on the steps whicle he was walking with his sister in the apartment building which made him fall leading to this admission. Complained of jabbing pain on the left side of his chest with supine to sit transition, diminished in the sitting position. Feels a little unsteady when he first stood up and walked. felt another jabbing feeling when he turned around to walk back to his room. States he has an appointment with OP PT at 1 pm today for his L-sided sciatica. Objective: General Observation: Drowsy but able to safely participate in session. Nurse Bautista disconnected IV for ambulation assessment and assisted with setting patient up in room on a chair. Contusion seen in L side of chest. Telementry monitoring in place. Rodriguez catheter in place. Mental Status: Alert and oriented as to person, place, time, and purpose. Able to pay attention, focus, and respond appropriately. Pain: 5/10 in L chest and lower back Vital Signs: WNL as monitored via tele ROM: Right Upper Extremity: Shoulder Flexion 50% limited due to pain in chest. Shoulder abduction 50% limited due to pain in chest. Elbow flexion WFL. Wrist flexion WFL. Functional opening and closing of hand WFL. Left Upper Extremity: Shoulder Flexion 50% limited due to pain in chest. Shoulder abduction 50% limited due to pain in chest. Elbow flexion WFL. Wrist flexion WFL. Functional opening and closing of hand WFL. Right Lower Extremity: Hip flexion WFL. Hip abduction WFL. Knee flexion WFL. Ankle dorsiflexion to neutral only. Ankle plantarflexion WFL. Left Lower Extremity: Hip flexion WFL. Hip abduction WFL. Knee flexion WFL. Ankle dorsiflexion to neutral only. Ankle plantarflexion WFL. Strength: Right Upper Extremity: Shoulder flexors 3-/5. Shoulder abductors 3-/5. Elbow flexors 4-/5. Elbow extensors 4-/5. Clinical Account Specialist strong. Left Upper Extremity: Shoulder flexors 3-/5. Shoulder abductors 3-/5. Elbow flexors 4-/5. Elbow extensors 4-/5. Clinical Account Specialist strong. Right Lower Extremity: Hip flexors 4-/5. Hip abductors 4-/5. Knee flexors 4-/5. Knee extensors 4-/5. Ankle dorsiflexors 4-/5. Ankle plantarflexors 4-/5. Left Lower Extremity: Hip flexors 4-/5. Hip abductors 4-/5. Knee flexors 4-/5. Knee extensors 4-/5. Ankle dorsiflexors 4-/5. Ankle plantarflexors 4-/5. Bed Mobility/Transfers: Rolling to R minimal assist Supine to sit minimal assist Sit to stand minimal assist Stand to sit minimal assist Bed to chair minimal assist Gait: Instructed patient with level surface ambulation of 80 feet requiring minimal assist. Jacqui decreased. Step height decresed. Step length decreased. Pain in L side of chest at 7-8/10 that diminished with rest. Balance: Static Sitting: Good Dynamic Sitting: Fair Static Standing: Fair Dynamic Standing: Fair Special Tests: Mobility Limitations Standardized Measure [facility] AM-PAC 6 clicks Basic Mobility Inpatient Short Form: Raw Score: 15 CMS Score: 58% deficit Informed Consent/Education: Patient was instructed in purpose of PT consult and plan of care. Agreeable to proceed with established PT POC to achieve personal goals. Assessment: Patient presents with clinical signs and symptoms consistent with current/admitting diagnoses that have resulted to mobility limitations, gait instability, generalized weakness, and overall ADL decline as demonstrated by the following impairment level findings: 1. Decreased strength to B UE/LE major muscle groups 2. Impaired sitting/standing balance 3. Impaired activity tolerance 4. Limitation of joint range of motion in B shoulders 5. Shortness of breath 6. Pain in L side of chest 7. Lethargy Impairments are contributing to the following functional limitations: 1. Decline in bed mobility skills 2. Decline in transfer skills 3. Difficulty with ambulation without assistive device and physical assistance 4. Increased completion time for mobility ADL performance 5. Increased risk for falls 6. Difficulty with managing steps alone safely Patient is assessed as a 07303 moderate complexity based on the following: History: 71-year-old male with past medical history as indicated above Examination: Demonstrable impairment in strength, balance, and mobility level with underlying impairments and functional limitations as exhibited above as well as deficit score of 58% utilizing the [facility] Mobility Inpatient Short Form Presentation: Evolving Decision Makin moderate complexity Goals: Goals X1 week 1. Supine-Sit independent 2. Sit-Supine independent 3. Sit-Stand independent 4. Stand-Sit independent with SPC 5. Bed-Chair independent with SPC 6. Chair-Bed independent with SPC 7. Independent gait on level surface with use of SPC for at least 500 feet without report of pain nor dyspnea 8. Independent stair negotiation while holding onto 1 rails for at least 5 steps without report of pain nor dyspnea 9. Independent with home exercise program 10. Good static and dynamic standing balance/tolerance Plan of Care/Treatment Plan: 1-2x/day, 7 days/week x 1 week. Plan of care has been reviewed with the REGULATORY SCIENTIST providing the service under Physical Therapy direction. Initiate Physical Therapy intervention for pain management as needed, strengthening, bed mobility, transfers, gait, stairs, balance training, and use of assistive device. DISCHARGE RECOMMENDATIONS: [] Home with no services [] [] Home with services [specify] [] Home with outpatient PT [] [] SNF for continued rehabilitation [] [] Health Unit Coordinator Care [] [] SNF versus LTC based on ability to participate and progress [] [X] SNF vs HH PT depending on progress towards goals TREATMENT CODE/TIME: 08162 x 20 minutes, 12041 x 15 minutes beginning at 10:40 AM. Thank you for the opportunity to participate in the care of this patient. Kristi Hurtado PT, DPT, CLT [facility] [place], [place]
--- NOTE | 2021-11-20 14:21 | PHACLINREV_ITS ---
Pharmacy Admission Review - Admission Clinical Review (Last Reviewed 11/19/21 @ 22:22 by Daniela Villafana DO) Left shoulder pain (Acute) H/O ventricular tachycardia (Acute) Contusion of left chest wall (Acute) Left sided sciatica (Acute) Hypokinesia of left ventricle (Acute) Abrasion hip/leg (Acute) Contusion of left elbow and forearm (Acute) Hemothorax on left (Acute) Multiple fractures of ribs of left side (Acute) Contusion of left lung (Acute) Pneumothorax on left (Acute) Pleural effusion (Acute) ICD (implantable cardioverter-defibrillator) in place (Acute) custodial current use of 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 medical therapy (Acute) Imbalance (Acute) Dizziness (Acute) Diverticulosis (Acute) adhesive tape Allergy (Unknown, Verified 11/19/21 14:42) rash latex Adverse Reaction (Intermediate, Verified 11/19/21 14:42) trouble breathing/moving Resuscitation Status Full Code Height 6 ft 2 in Weight 80 kg - Renal Dosing Renal Dosing: BUN 12 mg/dL (7-18) 11/19/21 15:52 Creatinine 0.9 mg/dL (0.70-1.30) 11/19/21 15:52 Medications needing adjustments: N/A (crcl = 83) - Anticoagulation Anticoagulation: Hgb 12.6 g/dL (13.5-17.5) L 11/20/21 05:59 Hct 36.6 % (40.0-50.0) L 11/20/21 05:59 Plt Count 158 10^3/uL (130-400) 11/20/21 05:59 Creatinine 0.9 mg/dL (0.70-1.30) 11/19/21 15:52 DVT Prophylaxis: N/A (takes xarelto at home which is currently on hold. using SCDs for now) Therapeutic Anticoagulation: Reviewed Medications: Rivaroxaban (pt takes xarelto at home, currently on hold d/t concern of bleed secondary to trauma, ?restart) - Opiate Usage Evaluate Pain Scale/Pains Meds: Reviewed (has oxycodone 5 mg q4h prn & dilaudid 0.5 mg IV q3h prn ordered, has received one dose of each today, 3 doses of dilaudid yesterday)) Scheduled Bowel Reg ordered if on Opiates?: Yes (has PEG & psyllium) - Relevant Labs Sodium 135 mmol/L (136-145) L 11/19/21 15:52 Potassium 3.8 mmol/L (3.5-5.1) 11/19/21 15:52 Chloride 102 mmol/L (98-107) 11/19/21 15:52 Electrolytes, C-Reactive P, ESR: Reviewed - DM Control DM Control: Glucose 178 mg/dL (74-106) H 11/19/21 15:52 Finger Stick Blood Glucose 304 Finger Stick Blood Glucose 304 Finger Stick Blood Glucose 215 Finger Stick Blood Glucose 215 Insulin Dosing: Reviewed (pt uses victoza at home (not ordered, not on formulary), currently has insulin aspart sliding scale AC & HS plus insulin glargine 5 units at HS starting tonight) - Heart Failure/AL Heart Failure/AL: Troponin I < 50 ng/L (<or=60) 11/20/21 05:59 NT-Pro-B Natriuret Pep 71 pg/mL (<300) 11/20/21 05:59 EF%, JESSE's, B-Blockers, Diuretics: Reviewed (received lisinopril this morning (5 mg), has since been dc'd. metoprolol dose adjusted) - BP Control BP Control: Blood Pressure 100/49 Blood Pressure 95/44 Blood Pressure 97/53 Blood Pressure 97/53 Blood Pressure 97/53 Blood Pressure 93/47 Blood Pressure 104/54 Blood Pressure 112/53 Blood Pressure 112/53 Blood Pressure 103/51 Blood Pressure 103/51 Blood Pressure 99/42 Blood Pressure 93/52 Blood Pressure 120/51 Blood Pressure 120/51 Blood Pressure 107/51 Blood Pressure 88/50 Blood Pressure 92/45 Blood Pressure 101/57 If elevated: Reviewed (hypotensive - metoprolol succ 100 mg daily home dose adjusted to lopressor 50 mg q6h. Lisinopril now dc'd. Receiving LR 1 L bolus) - Qtc Review If Elevated: N/A (EKG not yet resulted) - IV to PO Switch IV Medications: Reviewed - Home Meds Home Med List reviewed: Reviewed (Reviewed home med list & recent fill history. According to recent fills, amiodarone dose was increased to 400 mg daily 01/2021, RN spoke with pt and he states he was instructed to return to 200 mg daily. Lisinopril dose should be 2.5 mg daily (pt did receive 5 mg this morning)) Relevent Home Meds Not ordered & why?: metoprolol dose adjusted (from Toprol XL 100 mg daily to Lopressor 50 mg Q6), lisinopril dc'd (hypotension). Mag 64 Rx is 2 tabs TID however pt states he only takes 2 tabs BID because he forgets to take it TID and that his Mag has been within range (no results this admission) - Current meds Current Medication Order Review: Reviewed (Gabapentin & skelaxin new meds, started last night)
--- NOTE | 2021-11-20 14:22 | NUR.NOTE ---
Offered patient AM care after tests and physical therapy this morning and patient said at a later time. Offered patient care again and patient said he would let us know when he wanted to get cleaned up. RN notified. Nursing Note:
[2021-11-20] MEDS: Lactated Ringers 1,000 ML 250 ML IV (14:45)
--- NOTE | 2021-11-20 15:16 | W.INDIABCONS ---
Date of service: 11/20/21 Time of Service: 15:16 Diabetes Inpatient Consult Reason for Visit: Diabetes consult DESCRIPTION/ASSESSMENT: Mr. Hendrix is here with multiple fractures of ribs s/p fall. He is 188 cm and 80 kg. His BMI is 22.6 which is WNL but on the lower side for his age. His weight has been fairly stable over the past couple of years. HgbA1C is 6.5 suggesting optimal blood sugar management. Historically his A1C's have all been under 7. Blood sugars her above target likely due to the physiologic stress. He is getting 5 units of glargine and then aspart correction. There is room to increase his glargine if his fasting blood sugars remain above target. He is getting PO intake is very good. Estimated energy needs are 2400 kcal/day (30 kcal/kg/day for increased kcal needs with fractures) Estimated protein needs are : 80g-104 g/day (1.0 - 1.3 g/kg/day) Estimated fluid needs are 2400 ml/day (30 ml/kg/day) INTERVENTION: Will provide Glucerna supplements twice daily to help boost his calorie and protein intake. Will encourage nutrient dense foods. PLAN: Will monitor weight, PO intake, blood sugars, tolerance to supps. Will evaluate nutrition care plan ongoing and adjust as needed. Time Spent in Nutritional Counseling and Treatment: 0
[2021-11-20] MEDS: Pantoprazole 20 MG TABCR 40 MG PO (21:28)
[2021-11-20] MEDS: Patch Removal 1 EACH TP (21:30)
[2021-11-21] VITALS (136 sets, daily range): BP systolic 90–132; BP diastolic 39–73; PULSE 55–64; RESP 9–33; TEMP 36.4–37.1; O2SAT 89–98; BMI 22.6
--- NOTE | 2021-11-21 | DI.RAD_ITS ---
Exam(s) XR PORTABLE CHEST AP EXAM: XR PORTABLE CHEST AP CLINICAL HISTORY: s/p ORIF rib fractures, evaluate pneumothorax TECHNIQUE: 2D digital imaging was performed. COMPARISON: No exams were available for comparison FINDINGS: The exam is limited by overlying leads and poor pulmonary inflation. LUNGS: Mild basilar atelectasis.. No pleural abnormality seen. HEART: Pacemaker. Coronary artery stent. AORTA: Normal. BONES: Patient is status post placement of fixation plates across the fractures of the left 8th throu gh 10th ribs. A left-sided chest tube has been placed with the tip projecting in the left upper lobe ... Soft tissues: Unremarkable. IMPRESSION: Left chest tube in place. No visible pneumothorax. DATA REPOSITORY: RADIATION DOSE DELIVERED:
[2021-11-21] MEDS: oxyCODONE 5 MG TAB PO ×3 (02:39→20:17)
[2021-11-21] MEDS: Ketorolac 15 MG/ML VIAL IVP ×2 (02:39→20:17)
[2021-11-21] MEDS: Acetaminophen 500 MG TAB 1000 MG PO ×2 (02:39→17:07)
[2021-11-21] MEDS: Normal Saline Flush 10 ML SYR IVP (02:41)
[2021-11-21] MEDS: HYDROmorphone 2 MG/ML SYR 0.5 MG IVP ×3 (04:32→12:08)
[2021-11-21 07:53] LABS: HCT 34.2 % (40.0-50.0); MCH 31.3 pg (27.0-33.0); MCHC 35.1 % (32.0-36.0); MCV 89 fL (80-95); Platelet Count 156 10^3/uL (130-400); RBC 3.83 10^6/uL (4.36-5.78); RDW 13.8 % (11.8-14.1); WBC 7.12 10^3/uL (4.4-10.8)
[2021-11-21] MEDS: Lidocaine 5% Patch 1 PATCH TP (07:58)
[2021-11-21] MEDS: lamoTRIgine 100 MG TAB 250 MG PO (07:58)
[2021-11-21] MEDS: ARIPiprazole 5 MG TAB PO (07:58)
[2021-11-21] MEDS: Amiodarone 200 MG TAB PO (07:59)
[2021-11-21] MEDS: Gabapentin 100 MG CAP PO ×3 (07:59→20:17)
[2021-11-21 08:02] LABS: Prothrombin Time 10.5 sec (9.3-11.0)
[2021-11-21 08:07] LABS: ALT 51 U/L (16-63); AST 36 U/L (15-37); Albumin 2.7 g/dL (3.4-5.0); Alkaline Phosphatase 60 U/L (46-116); Anion Gap 6.7 mmol/L (3-11); BUN 19 mg/dL (7-18); Bilirubin, Total 0.5 mg/dL (0.2-1.0); CO2 25.3 mmol/L (21.0-32.0); CREATININE 0.9 mg/dL (0.70-1.30); Calcium 8.2 mg/dL (8.5-10.1); Chloride 104 mmol/L (98-107); Glucose 163 mg/dL (74-106); Magnesium 1.5 mg/dL (1.8-2.4); Potassium 4.2 mmol/L (3.5-5.1); Sodium 136 mmol/L (136-145); Total Protein 5.8 g/dL (6.4-8.2)
--- NOTE | 2021-11-21 09:34 | PT.INTREAT ---
PT Notes Visit Reasons: Blunt Chest Trauma/Mult Rib Fx/+Blood Thinners SUBJECTIVE: Pt pleasant and cooperative, pt agreed to participating with therapy. OBJECTIVE: ? PAIN: 8/10 for chest pain ? BED MOBILITY/TRANSFERS? Supine-sit: min A ? Sit-supine: min A ? Sit-stand: CGA? Stand-sit: CGA? Bed-Chair: Stand-pivot transfer with FWW and CGA ? Chair-bed: Stand-pivot transfer with FWW and CGA ? GAIT? Assistive Device: FWW? Weight bearing: Full Assist: CGA ? Distance:? 40'x2 ? Deviation: standing guarded slight trunk flexion due tochest discomfort, decreased anastacia speed, hip flexion and knee flexion ? ASSESSMENT:? Pt able to tolerate activity as long as pt doesnt hurry and takes his time to cover available distance, cues to take his time during turns and ensure BUE support during sit to stand to prevent displacement of multiple rib fracture. PLAN: Continue as per POC. TREATMENT CODE/TIME: Session 1: 23 minutes; 67847 (1:05pm) ?
[2021-11-21] MEDS: Magnesium Gluconate 500 MG TAB PO (09:39)
[2021-11-21] MEDS: Metoprolol 50 MG TAB PO ×3 (09:47→21:46)
[2021-11-21] MEDS: Lactated Ringers 1,000 ML 150 ML IV ×2 (10:37→13:26)
--- NOTE | 2021-11-21 10:54 | PT.INTREAT ---
Date of service: 11/21/21 Time of Service: 10:54 PT Notes Visit Reasons: Blunt Chest Trauma/Mult Rib Fx/+Blood Thinners Physical Therapy Inpatient Treatment Note Date: 11/21/2021 Precautions: Fall. Standard. Activity as tolerated. Subjective: Per Nurse Lily patient has scheduled surgery this afternoon to stabilize displaced rib fractures. Patient complains of terrible pain and is agreeable with holding off on any ambulation activity until his ribs are stabilized. Objective: General Observation: Awake and alert. Sister present in room.? Telemetry monitoring in place.? Rodriguez catheter in place.? Mental Status: Alert and oriented as to person, place, time, and purpose. Able to pay attention, focus, and respond appropriately. Pain: 10/10 in L chest and lower back Vital Signs: WNL as monitored via tele Gait: Deferred until this afternoon after surgery THERA EX: LAQ x 10 Ankle DF/PF x10 Seated hip ER/IR x 10 Balance: Static Sitting: Good Dynamic Sitting: Fair Static Standing: Fair Dynamic Standing: Fair Assessment: Deferred ambulation activity this morning to minimize aggravation of pain from L-sided multiple rib fractures. Focused on doing B LE exercises in sitting that does not increase pain in displaced ribs. Plan of Care/Treatment Plan: Will recheck patient in the afternoon after scheduled surgery for ORIF of multiple L-sided rib fractures DISCHARGE RECOMMENDATIONS: [] ? Home with no services [] [] ? Home with services [specify] [] ? Home with outpatient PT [] [] ? SNF for continued rehabilitation [] [] ? Half-Way Care [] [] ? SNF versus LTC based on ability to participate and progress [] [X] ? SNF vs PT depending on progress towards goals TREATMENT CODE/TIME: 10594 x 24 minutes beginning at 10:54 AM.
--- NOTE | 2021-11-21 12:01 | PDOC.CMPRO ---
- If Service Date Differs Date of service: 11/21/21 Time of Service: 12:01 Care Management Progress Note S/O: Marquez was in the OR when CM attempted to visit. He will remain in the ICU after surgery for close monitoring overnight, per RN. He will resume work with PT once he is medically stable enough to do so. CM will continue to follow. A: Marquez is a 71 year old male admitted to [facility] on 11/19/21 with blunt chest trauma/mult rib fx. P: Anticipate Mraquez will return home once medically cleared. His grand daughter will drive him home via private vehicle. He will follow up with his PCP and discharge plan of care. CM will continue to follow.
--- NOTE | 2021-11-21 12:35 | W.ANESPRE ---
General Info Date of Service Date Performed: 11/21/21 Height: 6 ft 2 in Weight: 80 kg Body Mass Index (BMI): 22.6 Surgical Procedure: Operation Date: 11/21/21 12:05 Proposed Procedure Side Surgeon p JUAN Rib FX Juwan Saldivar MD Meds Allergies and Home Medications Allergies Allergy/AdvReac Type Severity Reaction Status Date / Time adhesive tape Allergy Unknown rash Verified 11/19/21 14:42 latex AdvReac Intermediate trouble Verified 11/19/21 14:42 breathing/moving Home Medication Medication Instructions Recorded zolpidem 10 mg tablet 10 mg PO HS PRN PRN 05/16/13 pantoprazole 20 mg tablet,delayed 40 mg PO HS 12/06/13 release (Protonix) liraglutide 0.6 mg/0.1 mL (18 mg/3 1.8 mg SQ HS 01/19/17 mL) subcutaneous pen injector (Victoza 3-Ruddy) aspirin 81 mg chewable tablet 81 mg PO DAILY 07/23/17 tramadol 50 mg tablet 50 mg PO PRN PRN 07/24/17 cholecalciferol (vitamin D3) 50 2,000 unit PO DAILY 06/13/19 mcg (2,000 unit) capsule (Vitamin D3) rivaroxaban 20 mg tablet (Xarelto) 20 mg PO DAILY #90 tabs 09/06/19 clonazepam 1 mg tablet (Klonopin) 1 mg PO DAILY 09/21/19 cyanocobalamin (vitamin B-12) 1,000 mcg PO DAILY 12/13/19 1,000 mcg tablet (Vitamin B-12) magnesium chloride 64 mg 128 mg PO BID #120 tabs 11/29/20 (magnesium chloride) tablet,delayed release (Mag 64) ferrous gluconate 324 mg (37.5 mg 324 mg PO DAILY 12/04/20 iron) tablet atorvastatin 80 mg tablet (Lipitor) 20 mg PO HS 12/19/20 metoprolol succinate 100 mg 100 mg PO BID #180 tabs 09/20/21 tablet,extended release 24 hr amiodarone 200 mg tablet (Pacerone) 400 mg PO DAILY 09/26/21 lamotrigine 100 mg tablet 250 mg PO DAILY 10/03/21 polyethylene glycol 3350 17 gram 17 g PO DAILY 10/03/21 oral powder packet (Miralax) psyllium husk 0.52 gram capsule 0.52 g PO DAILY 10/03/21 (Fiber (psyllium husk)) aripiprazole 5 mg tablet (Abilify) 5 mg PO DAILY 11/05/21 folic acid 1 mg tablet 1 mg PO DAILY 11/05/21 mecobalamin (vitamin B12) 1,000 1,000 mcg PO DAILY 11/05/21 mcg chewable tablet lisinopril 2.5 mg tablet (Zestril) 2.5 mg PO QAM 11/20/21 metformin 1,000 mg tablet 1,000 mg PO BID@0800,1700 11/20/21 multivitamin 1 tab PO DAILY 11/20/21 Current Visit Medications: Current Medications Generic Name Dose Route Start Last Admin Trade Name Freq PRN Reason Stop Dose Admin Acetaminophen 1,000 mg 11/19/21 19:00 11/21/21 11:03 Acetaminophen 500 Mg Tab PO Not Given Q8H JULIET Amiodarone HCl 200 mg 11/20/21 08:30 11/21/21 07:59 Amiodarone 200 Mg Tab PO 200 mg DAILY JULIET Administration Aripiprazole 5 mg 11/20/21 08:30 11/21/21 07:58 Aripiprazole 5 Mg Tab PO 5 mg DAILY JULIET Administration Dextrose 0 gm 11/20/21 09:06 Glucose 40% Oral Solution 15 Gm/37.5 Gm Tube PO DIRECTED PRN Dextrose/Water 0 gm 11/20/21 09:06 Dextrose 50%-Water 25 Gm/50 Ml Syr IVP DIRECTED PRN Dimethicone/Zinc Oxide 0 gm 11/19/21 18:40 Blue Protect Cream 142 Gm Tube TP PRN PRN Gabapentin 100 mg 11/19/21 20:00 11/21/21 07:59 Gabapentin 100 Mg Cap PO 100 mg TID JULIET Administration Hydromorphone HCl 0.5 mg 11/19/21 20:45 11/21/21 12:08 Hydromorphone 2 Mg/Ml Syr IVP 0.5 mg Q3H PRN Administration Pain Sodium Chloride 500 mls @ 0 mls/hr 11/19/21 15:44 Saline 500ml Bag IV PRN PRN As Directed Ringer's Solution 1,000 mls @ 30 mls/hr 11/19/21 18:45 11/20/21 19:30 IV 30 mls/hr INFUSION JULIET Infusion Ringer's Solution 1,000 mls @ 150 mls/hr 11/21/21 10:45 IV INFUSION JULIET IV Miscellaneous Supplies 1 each 11/19/21 15:45 Iv Access IV DIRECTED [facility] Insulin Aspart 0 units 11/20/21 12:00 11/21/21 08:20 Insulin Aspart 300 Units/3 Ml Pen SC Not Given 0800,1200,1700,2200 [facility] Protocol Iohexol 100 ml 11/19/21 17:30 11/19/21 17:18 Omnipaque 350 Mg/Ml 100 Ml Btl IV 12/19/21 23:59 100 ml DIRECTED [facility] Administration Ketorolac Tromethamine 15 mg 11/19/21 22:15 11/21/21 02:39 Ketorolac 15 Mg/Ml Vial IVP 11/24/21 22:14 15 mg Q8H PRN Administration Lamotrigine 250 mg 11/20/21 08:30 11/21/21 07:58 Lamotrigine 100 Mg Tab PO 250 mg DAILY [facility] Administration Lidocaine 1 patch 11/20/21 08:30 11/21/21 07:58 Lidocaine 5% Patch TP 1 patch DAILY [facility] Administration Magnesium Gluconate 500 mg 11/21/21 08:35 11/21/21 09:39 Magnesium Gluconate 500 Mg Tab PO 500 mg DAILY [facility] Administration Metaxalone 800 mg 11/19/21 20:00 11/21/21 07:58 Metaxalone 800 Mg Tab PO 800 mg TID [facility] Administration Metoprolol Tartrate 50 mg 11/20/21 10:00 11/21/21 09:47 Metoprolol 50 Mg Tab PO 50 mg Q6H [facility] Administration Miscellaneous 1 each 11/19/21 20:30 11/20/21 21:30 Patch Removal TP 1 each Q24H [facility] Administration Nicotine 30 cartridge 11/20/21 12:05 Nicotine 10 Mg/Cartridge 30 Cart/Pkg IH Q2H PRN PRN Oxycodone HCl 5 mg 11/19/21 18:55 11/21/21 08:32 Oxycodone 5 Mg Tab PO 5 mg Q4H PRN PRN Administration Pantoprazole Sodium 40 mg 11/19/21 22:00 11/20/21 21:28 Pantoprazole 20 Mg Tabcr PO 40 mg HS [facility] Administration Polyethylene Glycol 17 gm 11/20/21 08:30 08/04/22 08:01 Polyethylene Glycol 3350 17 Gm Packet PO Not Given DAILY JULIET Psyllium Hydrophilic Mucilloid 1 each 11/20/21 08:30 11/21/21 08:01 Psyllium Pkt PO Not Given DAILY JULIET Sodium Chloride 0 ml 11/19/21 15:44 11/21/21 02:41 Normal Saline Flush 10 Ml Syr IVP 10 ml PRN PRN Administration Sodium Chloride 250 ml 11/19/21 17:30 11/19/21 17:19 Normal Saline 250 Ml Bag IV 75 ml DIRECTED JULIET Administration Zolpidem Tartrate 10 mg 11/20/21 07:14 Zolpidem 5 Mg Tab PO HS PRN PRN PFSH Active Problems Active Problems: Problem Status Onset Code Left shoulder pain M25.512 H/O ventricular tachycardia Z86.79 Contusion of left chest wall S20.212A Left sided sciatica M54.32 Hypokinesia of left ventricle I51.89 Abrasion hip/leg S80.819A Contusion of left elbow and forearm S50.12XA Hemothorax on left J94.2 Multiple fractures of ribs of left side S22.42XA Contusion of left lung S27.321A Pneumothorax on left J93.9 Pleural effusion J90 Kidney stones N20.0 Medication management Z79.899 ICD (implantable cardioverter-defibrillator) in place 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 Z79.899 Imbalance R26.89 Hypomagnesemia E83.42 Ischemic cardiomyopathy I25.5 Discharge planning issues Z02.9 DVT prophylaxis Z29.9 Dizziness R42 Ventricular tachycardia I47.2 Hammer toe M20.40 Peripheral neuropathy G62.9 Ventricular tachyarrhythmia I47.2 Clinical depression F32.9 GERD (gastroesophageal reflux disease) K21.9 Obstructive sleep apnea G47.33 Atrial fibrillation I48.91 Diverticulosis K57.90 Gastritis K29.70 Unspecified fracture of the lower end of right radius, subsequent encounter for closed fracture with routine healing 08/12/17 S52.501D Contusion of left knee, initial encounter 08/12/17 S80.02XA Disequilibrium 11/10/16 R42 Dysphagia R13.10 Rib pain on right side R07.81 Contact dermatitis L25.9 Magnesium deficiency E61.2 Hypertension I10 Diabetes E11.9 CAD (coronary artery disease) I25.10 Chronic pain G89.29 Medical History Medical History Anal fissure Degenerative disc disease Depression determined by examination Dermatitis Diabetic peripheral neuropathy Esophageal ring Family history of nephrolithiasis Frequent falls Hallucinations Hard stool Hematuria Hiatal hernia Hyperlipidemia pt. states its a fissure near his coccyx Iron deficiency anemia Lumbar degenerative disc disease Medication monitoring encounter Pacemaker Pressure ulcer, buttock Steatohepatitis Type 2 diabetes mellitus Surgical History Surgical History History of cholecystectomy History of colonoscopy 12/17/18 History of coronary artery stent placement History of esophagogastroduodenoscopy (EGD) 12/17/18 History of permanent cardiac pacemaker placement with defib Tobacco Smoking/Tobacco Use Status: Current every day Tobacco Type: smokeless tobacco Counseling given: patient declined Alcohol Alcohol Intake: former Substance Use Substance use: Never Substance use type: does not use Details: Pt states he vapes daily Vital Signs and Lab Results Vital Signs Most Recent Vital Signs in EMR: Most Recent Vital Signs Temp Pulse Resp BP Pulse Ox 36.8 C 57 L 13 114/59 L 95 11/21/21 11:56 11/21/21 11:53 11/21/21 11:53 11/21/21 11:53 11/21/21 11:53 Point of Care Results Point of Care Results: Finger Stick Blood Glucose 210 11/21/21 11:51 Lab Results Result Diagrams: 11/21/21 07:41 11/21/21 07:41 Blood Type / Crossmatch: No Data to Display Complete Blood Count: White Blood Count 7.12 10^3/uL (4.4-10.8) 11/21/21 07:41 Red Blood Count 3.83 10^6/uL (4.36-5.78) L 11/21/21 07:41 Hemoglobin 12.0 g/dL (13.5-17.5) L 11/21/21 07:41 Hematocrit 34.2 % (40.0-50.0) L 11/21/21 07:41 Platelet Count 156 10^3/uL (130-400) 11/21/21 07:41 Complete Metabolic Panel: Sodium Level 136 mmol/L (136-145) 11/21/21 07:41 Potassium Level 4.2 mmol/L (3.5-5.1) 11/21/21 07:41 Chloride Level 104 mmol/L (98-107) 11/21/21 07:41 Carbon Dioxide Level 25.3 mmol/L (21.0-32.0) 11/21/21 07:41 Blood Urea Nitrogen 19 mg/dL (7-18) H 11/21/21 07:41 Creatinine 0.9 mg/dL (0.70-1.30) 11/21/21 07:41 Estimated GFR/1.73 m2 >= 60.00 (mL/min/1.73m2) 11/21/21 07:41 Magnesium Level 1.5 mg/dL (1.8-2.4) L 11/21/21 07:41 Calcium Level 8.2 mg/dL (8.5-10.1) L 11/21/21 07:41 Albumin 2.7 g/dL (3.4-5.0) L 11/21/21 07:41 Glucose Level 163 mg/dL (74-106) H 11/21/21 07:41 Liver Function Panel: Alanine Aminotransferase (ALT/SGPT) 51 U/L (16-63) 11/21/21 07:41 Aspartate Amino Transf (AST/SGOT) 36 U/L (15-37) 11/21/21 07:41 Coagulation Panel: INR International Normalized Ratio 1.0 (0.9-1.1) 11/21/21 07:41 Prothrombin Time 10.5 sec (9.3-11.0) 11/21/21 07:41 Cardiac Panel: Troponin I < 50 ng/L (<or=60) 11/20/21 [id number] Natriuretic Peptide 71 pg/mL (<300) 11/20/21 Creatine Kinase 68 U/L (39-308) 11/20/21 Arterial Blood Gas: No Data to Display Venous Blood Gas: No Data to Display Pancreas Panel: No Data to Display Thyroid Panel: No Data to Display Infectious Disease: Coronavirus (COVID-19)(PCR) Negative (Negative) 11/19/21 17:58 Coronavirus 2019 Source Nasal/Nares 11/19/21 17:58 Blood Cultures: No Data to Display Toxicology Panel: No Data to Display Imaging and Studies Imaging and Studies Study information below may be from another EMR and interpreted by another provider. Please see original notes in EMR for more complete details. EKG Summary: Conclusion Sinus rhythm...normal P axis, V-rate 50- 99 Prolonged VT interval...VT >220, V-rate 50- 90 Left atrial enlargement...P, P'>60mS, <-0.15mV V1 Stress Test Summary: 1. Myocardial perfusion imaging: There is a small sized, moderately intense, fully reversible defect involving the apical septal wall(s). This suggests small and ischemia in the distribution of the left anterior descending coronary artery. 2. The calculated left ventricular ejection fraction after stress: 49%. LV global systolic function is mildly reduced. Diffuse left ventricular regional motion abnormalities. 3. Stress ECG conclusions: The stress ECG is negative. 4. Baseline ECG: Normal sinus rhythm with 1degrees AV block. Nonspecific ST changes. 5. Imaging information: gated. Image quality reduced due to diaphragmatic attenuation. Attenuation correction used. Echocardiogram Summary: Conclusion Left Ventricle : External defibrillator is in place making parasternal views unattainable. Left ventricular systolic function is mildly decreased. There is normal left ventricular wall thickness. There is global hypokinesis of the left ventricle. LVEF is 48%. Right Ventricle : Right ventricle is not well visualized. Right ventricular systolic function could not be assessed. The RVSP is 29.5 mmHg. Atria : The left atrium size is normal. Right atrium is not well visualized. Aortic Valve : The aortic valve is normal in structure. Trace aortic regurgitation. There is no aortic valvular stenosis. Mitral Valve : The mitral valve is normal in structure. Trace mitral regurgitation. No evidence of mitral valve stenosis. Great Vessels : Aortic root is not visualized. Ascending aorta is not visualized. IVC is normal in size and collapses >50% with inspiration. Compared to study from [facility] in 2017, there is no significant change. Anesthesia Assessment and Plan Anesthesia History Personal History: No History of Anesthesia Complications Family History: No Family History of Anesthesia Complications Exercise Tolerance Exercise Tolerance: Metabolic Equivalents>4 Pertinent Negatives Pertinent Negatives: No Symptoms of GERD and No History of CVA/TIA Cardiac & Pulmonary Exam Cardiac Exam: Normal S1/S2 Heart Sounds Pulmonary Exam: Clear Bilateral Breath Sounds Implantable Cardiac Device Does patient have a Pacemaker or an ICD?: No Airway Exam Known Difficult Airway: No Mallampati Class: 2 Mouth Opening: Normal (> 3cm) Thyromental Distance: Greater than 3 cm Neck Range of Motion: Limited ROM Neck Circumference: Normal Teeth Condition: Edentulous ASA Classification ASA Score: ASA 3 Emergency Case?: No NPO Status NPO Status: NPO Clears >2 hours, Solids >8 hours Anesthesia Plan Resuscitation Status: Full Code Anesthesia Technique: General Anesthesia Airway Planned: Endotracheal Tube Pain Management: Surgeon and patient request nerve block Monitors Used: Standard Monitors
--- NOTE | 2021-11-21 13:38 | W.ANESNERVE ---
Nerve Block Single Injection Procedure Date and Time Date Performed: 11/21/21 Procedure Start: 12:50 Location Where Procedure Performed Procedure Location: Operating Room Procedure Stop: 12:58 Reason Performed: Postoperative Analgesia Requesting Provider: Juwan Saldivar Timeout Performed Timeout Performed: Yes Monitoring Used ECG, Blood Pressure and SpO2 Sterility Sterility: Hand Hygiene, Surgical Cap, Surgical Mask, Sterile Gloves and Chlorhexidine Sedation Given During Procedure Sedation Given (Indicate Dose Given): No Sedation given Patient Mental Status Patient Mental Status: Awake Nerve Block 1st Nerve Block: Laterality: Left Block Type: Erector Spinae (Lower) Needle / Catheter Used: 100mm SonoPlex II Local Anesthetic Bolus (Indicate Dose Given): Lidocaine used for local infiltration of skin, Injected in 3-5ml increments after negative blood aspiration and Bupivacaine 0.25% Dose:: 40 ml Additives (Indicate Dose Given): Precedex Dose:: 80 mcg Ultrasound: Sterile probe cover and gel used Ultrasound Image Saved?: Yes Nerve Stimulator: Not Used Paresthesia: None Procedure Tolerated: No Complications and Patient tolerated well Procedure Outcome: Successful Performed By: Bony Bernard
--- NOTE | 2021-11-21 14:53 | ROE_ITS ---
Date of service: 11/21/21 Time of Service: 14:53 Operative Note Operative Note DATE OF PROCEDURE: 11/21/21 PRE-OP DIAGNOSIS: Rib fractures POST-OP DIAGNOSIS: same PROCEDURE: Open reduction and internal fixation of multiple left sided rib fractures SURGEON: Juwan Saldivar ASSISTING SURGEON: Jana Beckwith ANESTHESIA TYPE: General LMA/ETT Refer to Anesthesia Record ESTIMATED BLOOD LOSS: 50 PATHOLOGY: none sent COMPLICATIONS: None Implants: Synthes matrix rib fixation system 18-hole 8/9 plates x2 16-year-old 6/7 left plates x1 Indications: Acute chest wall trauma with multiple rib fractures refractory pain Procedure Description: After the institution of a left-sided erector spinae block by the anesthesia services, and induction of general endotracheal anesthesia, we moved the patient onto the operating room table and into the right lateral decubitus positioning. I took great care to pad the points of contact and joints. Shoulder roll was used. Genitalia were appropriately positioned. Next, I carefully examined the left hemithorax. I had previously ultrasounded the left chest to identify the acute fracture sites. Once the patient was under anesthesia, I was able to test the ribs to confirm the incision site. Next, I prepped and draped the chest in usual fashion. I then made a longitudinal incision in the area of the posterior axillary line overlying the seventh through tenth ribs. I dissected down through the skin to the latissimus dorsi muscle. I carefully the fibers (and dissected down through serratus anterior onto the left chest wall. This allowed me to expose the the 9th rib. There is a significant fracture with angulation and a posterior element overriding the anterior. I incised the periosteum along the superficial portion of the rib taking great care to minimize the dissection of the periosteum around the rib itself. Once this was complete, I made a small incision along the superior portion of the rib into the pleural space under direct vision, taking care to spare the underlying lung. I gently reduced the anterior fracture segment up to his normal anatomic position. With his complete, I selected the approptriate plate. It seems that the 18 hole 8/9 left rib plate would best restore normal positioning and support. Therefore, I trimmed the anterior and posterior segments of the plate to provide to the appropriate support of the fracture. Once this was complete, I fixed it in place using a ballpoint forceps. Next, I used a depth gauge to confirm preoperative measurements. It was approximately 7.5 millimeters thick. Therefore, I selected the 8 mm screws for this position. Using the drill guide, I established three-point fixation on either side of the fracture. Next, using the 8 millimeter screws, I secured the plate in place. Next, I extended my dissection caudad. There was able to identify a fracture 10th rib. Then, using a ball point grasper, I gently reduced the anterior fracture segment up to his normal anatomic position. Once this was complete, I selected the appropriate plate. It seemed that the 18-hole 8/9 rib plate would best restore normal positioning and support. Therefore, I trimmed the anterior and posterior segments of the plate to provide to the appropriate support of the fracture. Once this was complete, I fixed it in place using a ballpoint forceps. Next, I used a depth gauge to confirm preoperative measurements. It was approximately 7 millimeters thick. Therefore, I selected the 8 mm screws for this position. Using the drill guide, I established three-point fixation on either side of the fracture. Next, using the plate millimeter screws, I secured the plate in place. All below this helped for and without crepitance. Therefore, I turned my attention more cephalad. I dissected the eighth rib. It was significantly angulated. Next, using a four-point grasper, I gently reduced the anterior fracture segment up to his normal anatomic position. With his complete, I selcted the appropriate plate. It seems that the 17 hole 6/7 left rib plate would best restore normal positioning and support. Therefore, I trimmed the anterior and posterior segments of the plate to provide to the appropriate support of the fracture. Once this was complete, I fixed it in place using a ballpoint forceps. Next, I used a depth gauge to confirm preoperative measurements. It was approximately 10 millimeters thick along the posterior elements, and 8 mm thick anteriorly. Using the drill guide, I established three- point fixation on either side of the fracture. Next, using the 8 and 10 millimeter screws, I secured the plate in place. Once this was complete, I carefully examined the seventh and sixth ribs. Feel trace fractures, but they were well approximated, and the bones felt stable. Therefore, the irrigated the surgical field, and turned my attention towards closure. The field was hemostatic. Making a small stab incision anterior to the surgical site, I delivered a 16 [place] chest tube and passed it under direct vision into the pleural space anterior and apically. I fixed this to the skin Prolene suture. Next, I closed the surgical site in multiple layers with interrupted Vicryl stitches. I irrigated each layer. Skin was closed with a running subcuticular stitch, bandages were applied prior to making the patient from anesthesia and transferring him to the recovery unit
[2021-11-21] MEDS: fentaNYL 100 MCG/2 ML VIAL IVP (15:50)
--- NOTE | 2021-11-21 15:55 | W.ANESPOSTOP ---
Postoperative Evaluation Date, Time and Location Date Performed: 11/21/21 Time Performed: 15:55 Patient Location: Day Surgery Unit Vital Signs Most Recent Imported Vital Signs: Most Recent Vital Signs Temp Pulse Resp BP Pulse Ox 36.6 C 58 L 19 128/51 L 96 11/21/21 15:45 11/21/21 15:45 11/21/21 15:45 11/21/21 15:45 11/21/21 15:45 Pain Score Most Recent Pain Score: Most Recent Pain Score Pain Level [Left Back] 6 11/20/21 18:38 Pain Level [Left Knee] 8 11/19/21 14:48 Pain Level [Left Arm] 8 11/19/21 14:48 Pain Level 7 11/21/21 15:45 Assessment Mental Status: Awake (Alert & Oriented to Patient Baseline) Airway and Respiratory Function: Patent airway with normal (patient baseline) respiratory exam Cardiovascular Function: Hemodynamically Stable Hydration Status: Adequately Hydrated Nausea & Vomiting: Active Nausea or Vomiting Present Nausea and Vomiting Management: Nausea present without vomiting, patient wishes to be discharged Pain: Pain is tolerable per patient Peripheral Nerve Block: Patient did not receive a nerve block
[2021-11-21] MEDS: Insulin Aspart 300 UNITS/3 ML PEN SC ×2 (17:11→21:46)
[2021-11-21 21:21] LABS: Lidocaine <1.0 mcg/mL (1.5-5.0)
[2021-11-21] MEDS: Pantoprazole 20 MG TABCR 40 MG PO (21:47)
[2021-11-21] MEDS: Zolpidem 5 MG TAB 10 MG PO (21:47)
[2021-11-21] MEDS: Patch Removal 1 EACH TP (21:59)
[2021-11-22] VITALS (89 sets, daily range): BP systolic 90–144; BP diastolic 41–96; PULSE 54–75; RESP 12–22; TEMP 36.4; O2SAT 92–97
[2021-11-22] MEDS: Acetaminophen 500 MG TAB 1000 MG PO ×3 (01:52→17:22)
[2021-11-22] MEDS: Metoprolol 50 MG TAB PO ×4 (04:32→21:26)
[2021-11-22] MEDS: Ketorolac 15 MG/ML VIAL IVP ×3 (04:32→21:26)
[2021-11-22] MEDS: oxyCODONE 5 MG TAB PO ×2 (04:32→20:45)
[2021-11-22] MEDS: Lactated Ringers 1,000 ML 150 ML IV (04:36)
[2021-11-22] MEDS: HYDROmorphone 2 MG/ML SYR 0.5 MG IVP (05:45)
[2021-11-22 07:28] LABS: Magnesium 1.6 mg/dL (1.8-2.4)
--- NOTE | 2021-11-22 09:10 | PDOC.CMPRO ---
- If Service Date Differs Date of service: 11/22/21 Time of Service: 09:10 Care Management Progress Note S/O: Marquez was sitting up in bed when CM met with him. His sister, Kassandra, was in the room visiting. She stated that she is visiting from [place], and will stay with Marquez for a short time while he is recovering. His daughter is also planning on visiting after Kassandra leaves, giving Marquez continued oversight at home. CM discussed HH vs O/P PT, and he reported that he would prefer out patient, if possible. He reported that his pain is much better today, post surgically. He is hoping to return home soon. CM will continue to follow. A: Marquez is a 71 year old male admitted to [facility] on 11/19/21 with blunt chest trauma/mult rib fx. P: Anticipate Marquez will return home once medically cleared. His grand daughter will drive him home via private vehicle. He will follow up with his PCP and discharge plan of care. CM will continue to follow.
[2021-11-22] MEDS: Insulin Aspart 300 UNITS/3 ML PEN SC ×5 (09:49→21:38)
[2021-11-22] MEDS: ARIPiprazole 5 MG TAB PO (09:50)
[2021-11-22] MEDS: Normal Saline Flush 10 ML SYR IVP (09:50)
[2021-11-22] MEDS: Magnesium Gluconate 500 MG TAB PO (09:51)
[2021-11-22] MEDS: Gabapentin 100 MG CAP PO ×3 (09:52→20:25)
[2021-11-22] MEDS: lamoTRIgine 100 MG TAB 250 MG PO (09:52)
[2021-11-22] MEDS: Amiodarone 200 MG TAB PO (09:52)
[2021-11-22] MEDS: Polyethylene Glycol 3350 17 GM PACKET PO (09:53)
[2021-11-22] MEDS: Psyllium PKT 1 EACH PO (09:53)
[2021-11-22] MEDS: Lidocaine 5% Patch 1 PATCH TP (09:54)
--- NOTE | 2021-11-22 10:38 | PTTR_ITS ---
Date of service: 11/22/21 Time of Service: 10:38 PT Notes Visit Reasons: Blunt Chest Trauma/Mult Rib Fx/+Blood Thinners Physical Therapy Inpatient Treatment Note Date: 11/22/2021 Precautions: Fall. Standard. Activity as tolerated. Subjective: Patient report 4-5/10 pain in the L lateral chest and L shoulder blade area but of much less intensity than yesterday. Very happy the his gilliam catheter has been discharged and his IV unhooked. Objective: General Observation: Awake and alert. Sister present in room.? Telemetry monitoring in place.? Chest tube drain in place. Mental Status: Alert and oriented as to person, place, time, and purpose. Able to pay attention, focus, and respond appropriately. Pain: 4-5/10 at rest adn with movement Vital Signs: WNL as monitored via tele Gait: 150 feet using FWW with SBA and wheelchair follow. Posture more erect. Pain report less. No los of balance. No shortness of breath. THERA EX: LAQ x 10 Chest expansion ex with B shoulder flexion with DBE x 5 Ankle DF/PF x10 Chest expansion ex with B shoulder flexion with DBE x 5 Seated hip ER/IR x 10 Chest expansion ex with B shoulder flexion with DBE x 5 Balance: Static Sitting: Normal Dynamic Sitting: Good Static Standing: Fair Dynamic Standing: Fair Assessment: Pain tolerance much improved. Increment achieved in ambulation distance meaningful. Patient understands the importance of doing seated exercises and deep breathing activities at least every two hours towards his recovery. Plan of Care/Treatment Plan: Will recheck patient in the afternoon after scheduled surgery for ORIF of multiple L-sided rib fractures DISCHARGE RECOMMENDATIONS: [] ? Home with no services [] [] ? Home with services [specify] [] ? Home with outpatient PT [] [] ? SNF for continued rehabilitation [] [] ? Residential Care [] [] ? SNF versus LTC based on ability to participate and progress [] [X] ? SNF vs HH PT depending on progress towards goals TREATMENT CODE/TIME: 97272 x 30 minutes, 91585 x 11 minutes beginning at 10:38 AM.
--- NOTE | 2021-11-22 13:01 | PGE_ITS ---
Date of Service Date of service: 11/22/21 Time of Service: 13:01 Assessment and Plan Assessment and plan (1) Multiple fractures of ribs of left side: Status: Acute Assessment and plan: Status post open reduction internal fixation of multiple left-sided rib fractures, postoperative day #1. Patient is doing much better in terms of pain control. Patient is tolerating being out of bed. Further management as per surgery. Chest tube was removed this morning. Encourage use of I-S and acapella and ambulation. Continue with physical therapy. Professional time spent interviewing and examining patient, discussion of goals of care with hospital team (care management, nursing and consulting professionals) was 30 minutes. (2) Hemothorax on left: Status: Acute Assessment and plan: Stable status post open reduction internal fixation of his left rib fractures and postoperative drainage with chest tube. Continue to hold apixaban for another 24 hours. (3) Left shoulder pain: Status: Acute Assessment and plan: Improving. Treated with as needed ketorolac and oxycodone and Tylenol (4) Atrial fibrillation: Status: Chronic Assessment and plan: Currently in sinus bradycardia. Continue Toprol XL. Resume apixaban tomorrow Qualifiers: Atrial fibrillation type: paroxysmal Qualified Code(s): I48.0 - Paroxysmal atrial fibrillation (5) Ischemic cardiomyopathy: Status: Chronic Assessment and plan: No evidence for acute congestive heart failure. IV fluids been discontinued. Patient is tolerating oral diet. Continue his metoprolol. Blood pressure is much improved today I would consider restarting his lisinopril tomorrow. (6) CAD (coronary artery disease): Status: Chronic Assessment and plan: No evidence for ischemia perioperatively. No angina symptoms w/ ambulation. resume his apixaban tomorrow. continue lopressor but consider changing to Toprol XL at reduced dose (he was on Toprol XL 100 mg at home and is only on lopressor 25 mg nightly. Qualifiers: Coronary Disease-Associated Artery/Lesion type: [place] artery [place] vs. transplanted heart: [place] heart Associated angina: without angina Qualified Code(s): I25.10 - Atherosclerotic heart disease of [place] coronary artery without angina pectoris (7) ICD (implantable cardioverter-defibrillator) in place: Status: Acute Assessment and plan: ICD implanted for VT. No arrhythmias since admission. continue amiodarone (8) Diabetes: Status: Chronic Assessment and plan: glucose levels on the high side in the 300's now that he is taking oral feedings well. I have asked him to have his family bring in his Victoza. I have adjusted his SSI novolog to insulin resistant. If not able to get his Victoza tonight then will add Lantus 15 units nightly. Also I have adde CHO coverage at 2:10 ratio of insulin to CHO Qualifiers: Diabetes mellitus type: type 2 Diabetes mellitus intermediate teacher insulin use: without intermediate teacher use Diabetes mellitus complication status: without complication Qualified Code(s): E11.9 - Type 2 diabetes mellitus without complications (9) Left sided sciatica: Status: Acute Assessment and plan: improving Subjective Subjective Interval history since last seen: Patient offers no new acute complaints. He states his left-sided chest pain is better since he had his left-sided thoracoplasty for his multiple rib fractures. His appetite is much better he is engaging with staff and has no acute complaints. Denies any shortness of breath. His blood sugars are running in the 300s and I have asked that he have his family bring in his Victoza. Exam Narrative Exam Narrative: Elderly male who sitting up in his chair eating his lunch he is alert and oriented person place time circumstance. Lungs are clear anteriorly posteriorly has some diminished breath sounds at the left lung base no rhonchi wheezes or rales Heart is bradycardic and regular. baseball inspector and repairer shows sinus bradycardia in the mid 50s Abdomen soft and nontender Lower extremities without peripheral cyanosis or edema Objective Last Vital Signs Temp 36.4 C L 11/22/21 08:57 Pulse 60 11/22/21 11:07 Resp 13 11/22/21 11:07 BP 144/59 H 11/22/21 11:07 Pulse Ox 94 11/22/21 08:01 Laboratory Results - last 24 hr 11/19/21 11/22/21 21:28 06:10 Magnesium 1.6 L Lidocaine <1.0 L
--- NOTE | 2021-11-22 13:59 | W.PM.PROGNOT ---
Date of Service Date of service: 11/22/21 Time of Service: 13:59 Assessment and Plan Assessment and plan (1) Pneumothorax on left: Status: Acute Assessment and plan: Chest x-ray looks great, there is no evidence of any pneumothorax today. Plates well-seated. Lung harris are well aerated and there is no consolidation. I remove the chest tube fashion. I will follow-up chest x-ray around 4 PM. Subjective Subjective Interval history since last seen: He is feeling much better after ORIF of his left rib fractures yesterday. He was able to sleep through the night. He does have some occasional spasm Movement out of bed, but he says this is much better than yesterday. He denies any shortness of breath. Exam Chest Other: The incision is clean, there is no erythema. It is mildly swollen. Chest tube has normal titling. There is no airleak. Resp Effort & Inspection: normal respiratory effort Auscultation: clear to auscultation bilaterally Objective Last Vital Signs Temp 97.5 F L 11/22/21 08:57 Pulse 60 11/22/21 11:07 Resp 13 11/22/21 11:07 BP 144/59 H 11/22/21 11:07 Pulse Ox 94 11/22/21 08:01 Laboratory Results - last 24 hr 11/19/21 11/22/21 21:28 06:10 Magnesium 1.6 L Lidocaine <1.0 L
--- NOTE | 2021-11-22 15:16 | PT.INTREAT ---
Date of service: 11/22/21 Time of Service: 14:53 PT Notes Visit Reasons: Blunt Chest Trauma/Mult Rib Fx/+Blood Thinners Inpatient Physical Therapy Treatment Note [facility] Date: 11/22/2021 PRECAUTIONS: Fall, activity as tolerated, multile rib fx SUBJECTIVE: Pato is pleasant and agreeable to participating in PT. He reports that he is feeling better today. He states that he was just washed up and had the chest tube removed today. OBJECTIVE: PAIN: Patient c/o pain in scapular area with pressure through his B UE (with use of B handrails with stair negotiation and use of FWW with gait training) BED MOBILITY/TRANSFERS: Discussed bed positioning at home and techniques for bed mobility to manage rib/chest, shoulder pain. Rolling L/R: I Sit-supine: SBA with HOB flat Stand-sit: SBA GAIT Assistive Device: FWW Weight bearing: Full Assist: SBA - S Distance: 300' Deviation: None STAIRS: Up/down 3x4 and 2x6 using B rails and a step-to pattern with supervision ASSESSMENT: Patient tolerates a progression in gait distance with FWW support and SBA-S, demonstrating steady gait and pacing. He tolerates the addition of stair negotiation training well, without complaint. PLAN: Continue with general mobility training, specifically bed mobility training for best technique for pain managment. TREATMENT CODE/TIME: 23 minutes; 07761 x2 (14:53)
--- NOTE | 2021-11-22 16:00 | DI.RAD_ITS ---
Exam(s) XR PORTABLE CHEST AP EXAM: XR PORTABLE CHEST AP CLINICAL HISTORY: left chest tube removal TECHNIQUE: 2D digital imaging was performed of the chest. One image was obtained. An AP view was ob tained. COMPARISON: CR XR PORTABLE CHEST AP from 11/21/2021 FINDINGS: MEDIASTINUM: Normal. HEART: Normal. Cardiac pacing wires are stable in position. PULMONARY VASCULATURE: Normal. LUNGS: There is continued improved aeration of the lungs with minimal atelectasis seen in the left ba se. PLEURAL SPACE: The left chest tube has been removed. No pleural effusion or pneumothorax. BONE:Within normal limits for the patient's age. There again seen fixation plates on the left 8th thr ough 10th ribs. OTHER FINDINGS:Normal. IMPRESSION: Removal of the left chest tube without visible pneumothorax. DATA REPOSITORY: RADIATION DOSE DELIVERED:
[2021-11-22] MEDS: Patch Removal 1 EACH TP (20:45)
[2021-11-22] MEDS: Pantoprazole 20 MG TABCR 40 MG PO (20:46)
--- NOTE | 2021-11-22 22:59 | NUR.NOTE ---
Nursing Note: patient transferred and brought to m/s room 207 at this time. report taken by this rn from horticultural nursery assistant jayna
[2021-11-23] VITALS (9 sets, daily range): BP systolic 106–145; BP diastolic 59–73; PULSE 54–71; RESP 14–17; TEMP 36.2–37.3; O2SAT 93–99
[2021-11-23] MEDS: Acetaminophen 500 MG TAB 1000 MG PO ×4 (00:06→23:30)
[2021-11-23] MEDS: oxyCODONE 5 MG TAB PO ×3 (02:51→14:28)
[2021-11-23] MEDS: Ketorolac 15 MG/ML VIAL IVP (05:55)
[2021-11-23] MEDS: Normal Saline Flush 10 ML SYR IVP ×2 (05:56→08:06)
[2021-11-23] MEDS: Polyethylene Glycol 3350 17 GM PACKET PO (07:54)
[2021-11-23] MEDS: ARIPiprazole 5 MG TAB PO (07:54)
[2021-11-23] MEDS: Magnesium Gluconate 500 MG TAB PO (07:56)
[2021-11-23] MEDS: Gabapentin 100 MG CAP PO ×3 (07:56→19:50)
[2021-11-23] MEDS: lamoTRIgine 100 MG TAB 250 MG PO (07:57)
[2021-11-23] MEDS: Lidocaine 5% Patch 1 PATCH TP (07:59)
[2021-11-23] MEDS: Lisinopril 5 MG TAB 2.5 MG PO (07:59)
[2021-11-23] MEDS: Insulin Aspart 300 UNITS/3 ML PEN SC ×7 (07:59→21:45)
[2021-11-23] MEDS: Amiodarone 200 MG TAB PO (08:01)
--- NOTE | 2021-11-23 09:01 | W.PM.PROGNOT ---
Date of Service Date of service: 11/23/21 Time of Service: 09:01 Assessment and Plan Assessment and plan (1) Rib pain on right side: Status: Acute Assessment and plan: I think he is doing quite well after repair of his rib fractures. Certainly, his cough is stronger, and is able to little more on the incentive spirometer. I think we can restart his therapeutic anticoagulation today. We will get out of bed continue working with physical therapy for exercise tolerance. Assuming looks good through tomorrow with the reinstitution of his rivaroxaban, then he will probably be ready for discharge. I need to clarify if he will need extended health care (like snf or acute rehab) for simple home physical therapy Subjective Subjective Interval history since last seen: He had some difficulty maintaining sleep overnight, mostly due to obstruction and occasional pain with movement. Otherwise, he says he feels pretty good today. He has been tolerating a diet without any difficulty. Chest x-ray looked good after removal of the chest tube. Exam Const General: cooperative, comfortable and not in acute distress Chest Chest: no crepitus and tenderness Other: He has an appropriate amount of postsurgical pain. Resp Effort & Inspection: able to speak in complete sentences, no audible wheezes and cough (Slightly improved) Auscultation: clear to auscultation bilaterally Other: He is able to get about 2700 on the incentive spirometer Objective Last Vital Signs Temp 98.2 F 11/23/21 07:18 Pulse 56 L 11/23/21 07:18 Resp 17 11/23/21 07:18 BP 145/73 H 11/23/21 07:18 Pulse Ox 99 11/23/21 07:18 Laboratory Results - last 24 hr 11/19/21 21:28 Lidocaine <1.0 L
[2021-11-23] MEDS: Metoprolol 50 MG TAB PO (09:41)
--- NOTE | 2021-11-23 11:11 | PT.INTREAT ---
Date of service: 11/23/21 Time of Service: 10:26 PT Notes Visit Reasons: Blunt Chest Trauma/Mult Rib Fx/+Blood Thinners Inpatient Physical Therapy Treatment Note [facility] Date: 11/23/2021 PRECAUTIONS: Fall, activity as tolerated, multiple rib fx SUBJECTIVE: Pato is pleasant and agreeable to participating in PT. He reports that he is feeling better today and that he has been moving around well, without much pain. OBJECTIVE: Patient cleared to be independent with in-room transfers and ambulation with FWW support. Issued and adjusted to fit FWW to patient for at home use. Patient completes [facility] form. PAIN: Patient c/o pain in scapular area with pressure through his B UE, as well sciatica pain with gait training BED MOBILITY/TRANSFERS: Rolling L/R: I Supine-sit: I with HOB flat Sit-supine: I with HOB flat Stand-sit: I Sit-stand: I Bed-chair: I Chair-bed: I GAIT Assistive Device: FWW Weight bearing: Full Assist: S Distance: 300' Deviation: None ASSESSMENT: Patient tolerates a progression in gait distance with FWW support and SBA-S, demonstrating steady gait and pacing. He tolerates the addition of stair negotiation training well, without complaint. PLAN: Continue with general mobility training, specifically bed mobility training for best technique for pain management. TREATMENT CODE/TIME: 25 minutes; 37249 x2 (10:26)
--- NOTE | 2021-11-23 15:39 | W.PM.PROGNOT ---
Date of Service Date of service: 11/23/21 Time of Service: 15:39 Assessment and Plan Assessment and plan (1) Constipation due to opioid therapy: Status: Acute Assessment and plan: Secondary to oxycodone use. We will give him Relistor along with MiraLAX and put him on Colace and senna. If no bowel movement then will provide for an enema. Professional time spent interviewing and examining patient, discussion of goals of care with hospital team (care management, nursing and consulting professionals) was 20 minutes. (2) Multiple fractures of ribs of left side: Status: Acute Assessment and plan: Status post open reduction internal fixation of multiple left-sided rib fractures, postoperative day #2. Patient is doing much better in terms of pain control. Patient is tolerating being out of bed. Further management as per surgery. Encourage use of I-S and acapella and ambulation. Continue with physical therapy. Professional time spent interviewing and examining patient, discussion of goals of care with hospital team (care management, nursing and consulting professionals) was 20 minutes. (3) Left shoulder pain: Status: Acute Assessment and plan: Improving. Treated with as needed ketorolac and oxycodone and Tylenol (4) Atrial fibrillation: Status: Chronic Assessment and plan: Currently in sinus bradycardia. Continue Toprol XL. Resume apixaban today Qualifiers: Atrial fibrillation type: paroxysmal Qualified Code(s): I48.0 - Paroxysmal atrial fibrillation (5) Ischemic cardiomyopathy: Status: Chronic Assessment and plan: No evidence for acute congestive heart failure. IV fluids been discontinued. Patient is tolerating oral diet. Continue his metoprolol. Blood pressure is much improved today I would consider restarting his lisinopril tomorrow. (6) CAD (coronary artery disease): Status: Chronic Assessment and plan: No evidence for ischemia perioperatively. No angina symptoms w/ ambulation. resume his apixaban tomorrow. continue lopressor but consider changing to Toprol XL at reduced dose (he was on Toprol XL 100 mg at home and is only on lopressor 25 mg nightly. Qualifiers: Coronary Disease-Associated Artery/Lesion type: [place] artery [place] vs. transplanted heart: [place] heart Associated angina: without angina Qualified Code(s): I25.10 - Atherosclerotic heart disease of [place] coronary artery without angina pectoris (7) ICD (implantable cardioverter-defibrillator) in place: Status: Acute Assessment and plan: ICD implanted for VT. No arrhythmias since admission. continue amiodarone (8) Diabetes: Status: Chronic Assessment and plan: glucose improving but still not optimal. glucose fasting today was 224 and at lunch 271. He is currently getting his Victoza 1.8 mg at night and he is on insulin resistant sliding scale Novolog along w/ novolog:CHO meal ratio of 2:10 gm. I will add low dose Lantus 10 units nightly to his regimen. Qualifiers: Diabetes mellitus type: type 2 Diabetes mellitus senior care insulin use: without senior care use Diabetes mellitus complication status: without complication Qualified Code(s): E11.9 - Type 2 diabetes mellitus without complications (9) Left sided sciatica: Status: Acute Assessment and plan: improving. Will dc his oxycodone given his constipation and try him on Tramadol Subjective Subjective Interval history since last seen: Was reports he is constipated not been able to have a bowel movement. He also complained of some increased discomfort in his left chest wall when he was up to the bathroom today. He has no shortness of breath no cough. I encouraged him to use his I-S and acapella. Exam Narrative Exam Narrative: Marquez is seen sitting up in his bed he is alert and oriented person place time circumstance Lungs are clear anteriorly posteriorly has diminished breath sounds at the left lung base. Heart regular rate and rhythm Abdomen slightly distended soft normal bowel sounds no guarding or rebound tenderness Objective Last Vital Signs Temp 36.9 C 11/23/21 15:30 Pulse 57 L 11/23/21 15:30 Resp 16 11/23/21 15:30 BP 127/69 11/23/21 15:30 Pulse Ox 98 11/23/21 15:30
[2021-11-23] MEDS: Metoprolol 25 MG TAB PO ×2 (15:47→21:35)
[2021-11-23] MEDS: Bisacodyl 10 MG SUPP PR (16:44)
[2021-11-23] MEDS: Methylnaltrexone 12 MG/0.6 ML VIAL SC (16:44)
[2021-11-23] MEDS: Docusate Sodium 100 MG CAP PO ×2 (16:45→19:50)
[2021-11-23] MEDS: Rivaroxaban 10 MG TABLET 20 MG PO (16:45)
[2021-11-23] MEDS: Senna TAB 1 TAB PO ×2 (16:45→21:35)
[2021-11-23] MEDS: Patch Removal 1 EACH TP (19:54)
[2021-11-23] MEDS: traMADol 50 MG TAB 100 MG PO (21:35)
[2021-11-23] MEDS: Pantoprazole 20 MG TABCR 40 MG PO (21:35)
[2021-11-23] MEDS: Insulin Glargine 300 UNITS/3 ML PEN 10 UNITS SC (21:38)
[2021-11-24] MEDS: Normal Saline Flush 10 ML SYR IVP ×2 (01:41→09:19)
[2021-11-24] MEDS: Ketorolac 15 MG/ML VIAL IVP (01:41)
[2021-11-24 01:50] VITALS: BP 180/79; PULSE 82; RESP 20; TEMP 37.5; O2SAT 95
[2021-11-24] MEDS: traMADol 50 MG TAB 100 MG PO (02:31)
[2021-11-24 07:34] VITALS: BP 160/81; PULSE 75; RESP 18; TEMP 36.9; O2SAT 95
[2021-11-24] MEDS: Magnesium Gluconate 500 MG TAB PO (09:19)
[2021-11-24] MEDS: Metoprolol CR 100 MG TABCR PO (09:19)
[2021-11-24] MEDS: Gabapentin 100 MG CAP PO (09:19)
[2021-11-24] MEDS: Lidocaine 5% Patch 1 PATCH TP (09:19)
[2021-11-24] MEDS: Docusate Sodium 100 MG CAP PO (09:19)
[2021-11-24] MEDS: Acetaminophen 500 MG TAB 1000 MG PO (09:20)
[2021-11-24] MEDS: Lisinopril 5 MG TAB 2.5 MG PO (09:20)
[2021-11-24] MEDS: Amiodarone 200 MG TAB PO (09:20)
[2021-11-24] MEDS: lamoTRIgine 100 MG TAB 250 MG PO (09:20)
[2021-11-24] MEDS: ARIPiprazole 5 MG TAB PO (09:21)
[2021-11-24] MEDS: Insulin Aspart 300 UNITS/3 ML PEN SC ×3 (09:21→12:15)
--- NOTE | 2021-11-24 09:40 | W.PM.DS.N ---
Date of service: 11/24/21 Time of Service: 09:40 DS: Diagnosis Discharge Diagnosis (1) Multiple fractures of ribs of left side: Status: Acute Asessment and Plan: Improved after the open reduction and internal fixation of rib fracture (2) Atrial fibrillation: Status: Chronic Asessment and Plan: Discharging his home regimen of rate control therapy including amiodarone and therapeutic anticoagulation with rivaroxaban (3) Diabetes: Status: Chronic Asessment and Plan: Resuming home regimen of glycemic control (4) Left sided sciatica: Status: Acute Asessment and Plan: We will follow-up with outpatient physical therapy Discharge Plan Disposition Patient Disposition: HOME Condition: Fair Discharge Details Reason For Visit: Blunt Chest Trauma/Mult Rib Fx/+Blood Thinners Admit Date/Time: 11/19/21 18:41 Admit Provider: Daniela Villafana Attending Provider: Daniela Villafana [facility] Course: Mr. Torres is a 71-year-old male who sustained a fall down several steps at home on November 19, 2021. He was brought to the emergency department via EMS. CAT scan demonstrated multiple left-sided rib fractures with minimal hemothorax component. He was admitted to the intensive care unit. He had some mild respiratory insufficiency in the form of inadequate cough and incentive spirometry. This was secondary to his rib pain and crepitus. I discussed the risks and benefits of open reduction and internal fixation of his rib fractures, and we proceeded to the operating room on November 21. I stabilized fractures of the left-sided eighth ninth and 10th ribs. He did well postoperatively with a marked improvement in his incentive spirometry. Additionally, his cough is much improved. He was able to work with physical therapy, and was eager to be discharged home the seventh. Home Meds and New Rx's Prescriptions: New Laxative (sennosides) 15 mg tablet 15 mg PO BID PRNQty: 14 0RF Rx Instructions: take as needed for constipation docusate sodium [Docu] 50 mg/5 mL liquid 50 mg PO DAILY Qty: 473 0RF Rx Instructions: take as needed for constipation gabapentin [Neurontin] 400 mg capsule 400 mg PO QHS Qty: 14 0RF Rx Instructions: take 1 capsule as needed at nighttime for pain tramadol 100 mg tablet 100 mg PO DAILY PRNQty: 7 0RF Rx Instructions: take as needed for extreme pain this is highly addictive, take great caution with using this medication ZTlido 1.8 % adhesive patch,medicated 3 patch topical DAILY Qty: 30 0RF Rx Instructions: leave on most painful area for up to 12 hrs Continued clonazepam [Klonopin] 1 mg tablet 1 mg PO DAILY ferrous gluconate 324 mg (37.5 mg iron) tablet 324 mg PO DAILY amiodarone [Pacerone] 200 mg tablet 400 mg PO DAILY cyanocobalamin (vitamin B-12) [Vitamin B-12] 1,000 mcg tablet 1,000 mcg PO DAILY aripiprazole [Abilify] 5 mg tablet 5 mg PO DAILY folic acid 1 mg tablet 1 mg PO DAILY mecobalamin (vitamin B12) 1,000 mcg tablet,chewable 1,000 mcg PO DAILY aspirin 81 MG tablet,chewable 81 mg PO DAILY cholecalciferol (vitamin D3) [Vitamin D3] 50 mcg (2,000 unit) capsule 2,000 unit PO DAILY Xarelto 20 mg tablet 20 mg PO DAILY Qty: 90 3RF metoprolol succinate 100 mg tablet extended release 24 hr 100 mg PO BID Qty: 180 3RF lamotrigine 100 mg tablet 250 mg PO DAILY Label Comments: 07/23/17-200mg PO daily psyllium husk [Fiber (psyllium husk)] 0.52 gram capsule 0.52 g PO DAILY polyethylene glycol 3350 [Miralax] 17 gram powder in packet 17 g PO DAILY zolpidem 10 MG tablet 10 mg PO HS PRN PRN pantoprazole [Protonix] 20 MG tablet,delayed release (DR/EC) 40 mg PO HS Label Comments: 07/23/17-40mg PO daily per pt Victoza 3-Ruddy 0.6 MG/0.1 ML pen injector 1.8 mg SQ HS tramadol 50 MG tablet 50 mg PO PRN PRN Mag 64 64 mg Tablet,Delayed Release (Dr/Ec) 128 mg PO BID Qty: 120 0RF atorvastatin [Lipitor] 80 mg tablet 20 mg PO HS Label Comments: TAKE 1 TABLET BY MOUTH DAILY AT BEDTIME metformin 1,000 mg tablet 1,000 mg PO BID@0800,1700 lisinopril [Zestril] 2.5 mg tablet 2.5 mg PO QAM Label Comments: TAKE 1 TABLET BY MOUTH EVERY DAY multivitamin Tablet 1 tab PO DAILY Discharge Instructions Instructions: Rib Fracture (DC) Additional Instructions: 1. Use Tylenol and ibuprofen [id number] to help with pain. 2. It is okay to shower with warm soapy water rinsing the incision site clean. Use bandages if necessary for any drainage. 3. Call my office at [phone] to schedule an appointment around 2 weeks for follow-up. 4. No lifting greater than 10 pounds until I see you in the office. 5. Go directly to the emergency room if you notice any of the following: Develop chills (warm to touch), or if you have a thermometer and your temperature is above 101 Difficulty breathing Persistent vomiting Any bleeding ? exceeding one tablespoon 6. Is okay to resume all the medications that he took before being injured. 7. Follow-up with physical therapy office that you were planning to visit before your injury Stand Alone Forms: Nursing Discharge Form Referrals: Juwan Saldivar MD [ [facility] STAFF PHYSICIAN] - (Please call Thursday to make a follow up appointment.) Equipment/Supplies: Walker Activity:: Activity as Tolerated Remove Dressings/Wound Care:: 24 hours Shower/Bathe:: 24 hours Activity:: Activity as Tolerated Equipment/Supplies:: Walker Diet:: Carb Counting Discharge Orders Discharge Orders: Discharge Order (Routine); Ordered 11/24/21 Ordered By: Juwan Saldivar DS: Summary Time Spent with Patient providing and/or coordinating discharge services: Greater than 30 minutes Status at Discharge Functional status at discharge: uses cane/walker Overall status at discharge: patient is progressing back to baseline Mental Status: mental status grossly normal Speech and Movement: speech and movement normal Mood: congruent mood Affect: normal affect Exam Const General: cooperative, healthy appearing and comfortable Chest Other: Surgical incision is healing nicely, no signs of infection. No bony crepitus. Resp Effort & Inspection: normal respiratory effort Auscultation: clear to auscultation bilaterally Cardio Jugular venous pressure: no JVD Heart Sounds: S1 normal and S2 normal GI Inspection: normal to inspection Palpation: soft and nontender Extrem Right upper extremity: elbow/forearm Left upper extremity: elbow/forearm (Abrasions are healing nicely) Right lower extremity: no edema Left lower extremity: no edema Psych Mental Status: mental status grossly normal Speech and Movement: speech and movement normal Mood: congruent mood Affect: normal affect DS: Data Vitals/I&O Vitals and I&O: Vital Signs Temperature 98.4 F 11/24/21 07:34 Temperature Source Tympanic 11/24/21 07:34 Pulse 75 11/24/21 07:34 Pulse Rhythm Regular 11/24/21 09:08 Pulse 56 L 11/22/21 17:05 Respiratory Rate 18 11/24/21 07:34 Respiratory Effort Non-Labored 11/24/21 09:08 Respiratory Depth Normal 11/24/21 09:08 Respiratory Pattern Normal 11/24/21 09:08 Blood Pressure 160/81 H 11/24/21 07:34 Blood Pressure Mean 67 11/22/21 17:05 Blood Pressure Position Sitting 11/22/21 08:57 Pulse Oximetry 95 11/24/21 07:34 Respiratory End-tidal CO2 33 11/21/21 16:15 Oxygen Delivery Method Room Air 11/24/21 07:34 Oxygen Flow Rate 0 11/24/21 07:34 Pain Level 5 11/24/21 09:20 Intake & Output 11/23/21 11/23/21 11/24/21 11:59 23:59 11:59 Intake Total 240 / 780 540 / 780 360 / 360 Output Total 250 / 450 200 / 450 300 / 300 Balance -10 / 330 340 / 330 60 / 60 Intake: Oral 240 / 780 540 / 780 360 / 360 Output: Urine 250 / 450 200 / 450 300 / 300 Other: Urine Color Yellow Yellow Yellow Urine Appearance Clear Clear Urine Odor Normal Comment in bsc Stool Size Moderate Stool Characteristics Hard Voiding Methods Urinal Urinal PFSH All Active Problems Left shoulder pain (Acute) H/O ventricular tachycardia (Acute) Left sided sciatica (Acute) Hypokinesia of left ventricle (Acute) EF 48% Abrasion hip/leg (Acute) Contusion of left elbow and forearm (Acute) Multiple fractures of ribs of left side (Acute) Medication management (Acute) ICD (implantable cardioverter-defibrillator) in place (Acute) [place] 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 medical therapy (Acute) Imbalance (Acute) Ischemic cardiomyopathy (Chronic) Discharge planning issues (Acute) Dizziness (Acute) Hammer toe (Acute) Peripheral neuropathy (Chronic) Ventricular tachyarrhythmia (Chronic) s/p ICD 2014 Clinical depression (Chronic) GERD (gastroesophageal reflux disease) (Chronic) Obstructive sleep apnea (Chronic) Atrial fibrillation (Chronic) Diverticulosis (Acute) Gastritis (Acute) Contusion of left knee, initial encounter (Acute 08/12/17) Disequilibrium (Chronic 11/10/16) Dysphagia (Acute) Contact dermatitis (Acute) Magnesium deficiency (Acute) Hypertension (Chronic) Diabetes (Chronic) CAD (coronary artery disease) (Chronic) Chronic pain (Chronic) Medical History Anal fissure Contusion of left chest wall Contusion of left lung Degenerative disc disease Depression determined by examination Dermatitis Diabetic peripheral neuropathy DVT prophylaxis Esophageal ring Family history of nephrolithiasis Frequent falls Hallucinations Hard stool Hematuria Hemothorax on left minimal Hiatal hernia Hyperlipidemia pt. states its a fissure near his coccyx Hypomagnesemia Iron deficiency anemia Kidney stones Lumbar degenerative disc disease Medication monitoring encounter Pacemaker Pleural effusion Pneumothorax on left Pressure ulcer, buttock Rib pain on right side Steatohepatitis Type 2 diabetes mellitus Unspecified fracture of the lower end of right radius, subsequent encounter for closed fracture with routine healing (08/12/17) Surgical History History of cholecystectomy History of colonoscopy 12/17/18 History of coronary artery stent placement History of esophagogastroduodenoscopy (EGD) 12/17/18 History of permanent cardiac pacemaker placement with defib Family History Father Heart disease Mother Heart disease Brother Alcoholism Social History Smoking/Tobacco Use Status: Current every day Tobacco Type: smokeless tobacco Counseling given: patient declined Smoking risk assessment performed?: Yes Alcohol Intake: former Drug use: Never Substance use type: does not use Details: Pt states he vapes daily current occupation: Retired What type of physical activity do you participate in: bicycling Frequency: 3-4 times per week Do you feel safe at home: Yes Do you feel safe in your relationship?: Yes
--- NOTE | 2021-11-24 11:01 | PDOC.CMDIS ---
- If Service Date Differs Date of service: 11/24/21 Time of Service: 11:01 LACE Index Scoring Tool - Questions: Length of Stay (in days): 4 - 6 Acuity (Admit via E.D.?): Yes Comorbidities: Diabetes w/o Complication E.D. Visits: 4 - Answers: Total Score: 12 Risk of Readmission: High Risk Care Management Discharge Reason for Hospitalization: Blunt Chest Trauma/ Multiple rib fx Discharge Plan: Marquez is discharged home via private vehicle with family. Per pt, he will follow up with outpatient PT instead of H PT. Marquez will call the Surgical office on Thursday to schedule a follow up appointment. No [facility] services are ordered at time of discharge. Patient/Family Education Needs: Review discharge instructions, limitations, medications and plan to follow up with community providers. ask me three. Services Needed at Discharge: Outpatient Therapy (Outpt PT, Marquez will call to schedule)
--- NOTE | 2021-11-25 18:30 | PT.INDS ---
Date of service: 11/25/21 PT Notes Visit Reasons: Blunt Chest Trauma/Mult Rib Fx/+Blood Thinners Physical Therapy Inpatient Discharge Summary Date: 11/23/2021 Dates of Service: 11/20/2001 through 11/23/2021 This is a clinical summary of care provided for the duration of dates listed above. No charge was made in the completion of this documentation. Referring Doctor: Daniela Villafana MD PT Orders: PT CONSULT: Fall/mult rib fractures Precautions: Fall. Standard. Activity as tolerated. Patient Profile/Admitting Diagnosis:? Pato is a 72-year-old male who presented to the ED with left-sided chest/back/abdominal pain from a fall on 5 steps at his apartment building Patient is diagnosed with a small left pleural effusion and non-displaced fracture of the posterior aspects of the left sixth, seventh, and ninth ribs as well as a mildly displaced fracture of the posterior left eighth and 10th ribs. 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 current use of 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 medical therapy (Acute) Imbalance (Acute) Hypomagnesemia (Acute) Ischemic cardiomyopathy (Chronic) Discharge planning issues (Acute) DVT prophylaxis (Acute) Dizziness (Acute) Hammer toe (Acute) Peripheral neuropathy (Chronic) Ventricular tachyarrhythmia (Chronic) s/p ICD 2013 Clinical depression (Chronic) GERD (gastroesophageal reflux disease) (Chronic) Obstructive sleep apnea (Chronic) Atrial fibrillation (Chronic) Diverticulosis (Acute) Gastritis (Acute) Unspecified fracture of the lower end of right radius, subsequent encounter for closed fracture with routine healing (Acute 08/12/17) Contusion of left knee, initial encounter (Acute 08/12/17) Disequilibrium (Chronic 07/24/17) Dysphagia (Acute) Rib pain on right side (Acute) Contact dermatitis (Acute) Magnesium deficiency (Acute) Hypertension (Chronic) Diabetes (Chronic) CAD (coronary artery disease) (Chronic) Chronic pain (Chronic) Medical History? Anal fissure Degenerative disc disease Depression determined by examination Dermatitis Diabetic peripheral neuropathy Esophageal ring Family history of nephrolithiasis Frequent falls Hallucinations Hard stool Hematuria Hiatal hernia Hyperlipidemia pt. states its a fissure near his coccyx Iron deficiency anemia Lumbar degenerative disc disease Medication monitoring encounter Pacemaker Pressure ulcer, buttock Steatohepatitis Type 2 diabetes mellitus Surgical History? History of cholecystectomy History of colonoscopy 12/17/18 History of coronary artery stent placement History of esophagogastroduodenoscopy (EGD) 12/17/18 History of permanent cardiac pacemaker placement with defib Social History/Home Situation: [facility] The apartment building has a ramp, front stairs, and side stairs to enter.? He uses his SPC for all indoor and outdoor ambulation. Likes to bike a lot using his hybrid bike. Equipment Owned/DME: SPC Subjective: NT. See most recent TREATING PLANT PUMPER notes. Objective: General Observation: NT. See most recent TREATING PLANT PUMPER notes. Mental Status: NT. See most recent TREATING PLANT PUMPER notes. Pain: NT. See most recent TREATING PLANT PUMPER notes. Vital Signs: NT. See most recent TREATING PLANT PUMPER notes. ROM: Right Upper Extremity: ? Shoulder Flexion 50% limited due to pain in chest. Shoulder abduction 50% limited due to pain in chest. Elbow flexion WFL. Wrist flexion WFL. Functional opening and closing of hand WFL. Left Upper Extremity:? Shoulder Flexion 50% limited due to pain in chest. Shoulder abduction 50% limited due to pain in chest. Elbow flexion WFL. Wrist flexion WFL. Functional opening and closing of hand WFL. Right Lower Extremity: Hip flexion WFL. Hip abduction WFL. Knee flexion WFL. Ankle dorsiflexion to neutral only. Ankle plantarflexion WFL. Left Lower Extremity: Hip flexion WFL. Hip abduction WFL. Knee flexion WFL. Ankle dorsiflexion to neutral only. Ankle plantarflexion WFL. Strength: Right Upper Extremity: Shoulder flexors 3-/5. Shoulder abductors 3-/5. Elbow flexors 4-/5. Elbow extensors 4-/5. Construction Sales Manager strong. Left Upper Extremity: Shoulder flexors 3-/5. Shoulder abductors 3-/5. Elbow flexors 4-/5. Elbow extensors 4-/5. Construction Sales Manager strong. Right Lower Extremity: Hip flexors 4-/5. Hip abductors 4-/5. Knee flexors 4-/5. Knee extensors 4-/5. Ankle dorsiflexors 4-/5. Ankle plantarflexors 4-/5. Left Lower Extremity: Hip flexors 4-/5. Hip abductors 4-/5. Knee flexors 4-/5. Knee extensors 4-/5. Ankle dorsiflexors 4-/5. Ankle plantarflexors 4-/5. BED MOBILITY/TRANSFERS:? Rolling L/R: I Supine-sit: I with HOB flat Sit-supine: I with HOB flat ? Stand-sit: I Sit-stand: I Bed-chair: I Chair-bed: I ? GAIT? Assistive Device: FWW ? Weight bearing: Full Assist: S ? Distance:? 300' ? Deviation: None Balance: Static Sitting: Good Dynamic Sitting: Fair Static Standing: Fair Dynamic Standing: Fair Assessment: Patient demonstrates functional mobility improvements during this episode fo care. Goals: Goals X1 week 1. Supine-Sit independent MET 2. Sit-Supine independent MET 3. Sit-Stand independent MET 4. Stand-Sit independent with SPC NOT MET 5. Bed-Chair independent with SPC NOT MET 6. Chair-Bed independent with SPC NOT MET 7. Independent gait on level surface with use of SPC for at least 500 feet without report of pain nor dyspnea NOT MET 8. Independent stair negotiation while holding onto 1 rails for at least 5 steps without report of pain nor dyspnea NOT MET 9. Independent with home exercise program NOT MET 10. Good static and dynamic standing balance/tolerance NOT MET DISCHARGE RECOMMENDATIONS: [] ? Home with no services [] [] ? Home with services [specify] [] ? Home with outpatient PT [] [] ? SNF for continued rehabilitation [] [] ? Tram Driver Care [] [] ? SNF versus LTC based on ability to participate and progress [] [X] ? SNF vs PT depending on progress towards goals TREATMENT CODE/TIME: AK Thank you for the opportunity to participate in the care of this patient. Kristi Hurtado PT, DPT, CLT [facility] [place], [place]
--- NOTE | 2021-11-26 16:58 | NUR.NOTE ---
In the chart for an educational documenation review. Wong Lino CCRN Nursing Note:
== END 2021-11-24 12:56 | disposition home or self-care (01) | DRG 163 ==
LOC: ER 18:50 → ICU 20:37 → MS 11-22 22:53
PROVIDERS: Internal Medicine; Surgery; Admitting Provider Surgery; Emergency Provider Nurse Practitioner Family; PCP Family Medicine; Visit Provider Surgery
PROC: 0PS204Z Reposition 3 or More Ribs with Internal Fixation Device, Open Approach (ICD-10-PCS; CPT 49000; principal; 2021-11-21 11:45)
DX: S27.2XXA Traumatic hemopneumothorax, initial encounter (principal); S22.42XA Multiple fractures of ribs, left side, initial encounter for closed fracture; I50.22 Chronic systolic (congestive) heart failure; S27.321A Contusion of lung, unilateral, initial encounter; Z95.810 Presence of automatic (implantable) cardiac defibrillator; I25.5 Ischemic cardiomyopathy; K21.9 Gastro-esophageal reflux disease without esophagitis; G47.33 Obstructive sleep apnea (adult) (pediatric); I25.10 Atherosclerotic heart disease of native coronary artery without angina pectoris; E11.42 Type 2 diabetes mellitus with diabetic polyneuropathy; G89.29 Other chronic pain; J44.9 Chronic obstructive pulmonary disease, unspecified; S50.12XA Contusion of left forearm, initial encounter; I48.0 Paroxysmal atrial fibrillation; M54.42 Lumbago with sciatica, left side; Z79.01 Long term (current) use of anticoagulants; R26.89 Other abnormalities of gait and mobility; K57.90 Diverticulosis of intestine, part unspecified, without perforation or abscess without bleeding; K44.9 Diaphragmatic hernia without obstruction or gangrene; E78.5 Hyperlipidemia, unspecified; K75.81 Nonalcoholic steatohepatitis (NASH); S20.212A Contusion of left front wall of thorax, initial encounter; W10.9XXA Fall (on) (from) unspecified stairs and steps, initial encounter; E83.42 Hypomagnesemia; F17.290 Nicotine dependence, other tobacco product, uncomplicated; M25.512 Pain in left shoulder; Z79.899 Other long term (current) drug therapy; K59.03 Drug induced constipation; T40.2X5A Adverse effect of other opioids, initial encounter
CPT/HCPCS: 21811; 32556; 36415; 74177; 76942; 80053; 82550; 85027; 87635; 96374; 96376; 97110; 97162; 97530; 99222; 99231; 99239; 99285; 70450; 71045; 71046; 71260; 72125; 73030; 80176; 83735; 83880; 84484; 85025; 85610; 93005; 93010; 94667; 99223; 99232; J0690; J1100; J1170; J1885; J2370; J2704; J3010; J3490

== ENCOUNTER → 2021-12-18 14:22 | Outpatient (BNVA) | payer OTHER, SELFPAY | PROVIDERS: PCP Family Medicine; Referring Provider Family Medicine; Visit Provider Surgery | DX: S22.42XA Multiple fractures of ribs, left side, initial encounter for closed fracture (principal); W10.9XXA Fall (on) (from) unspecified stairs and steps, initial encounter | CPT/HCPCS: 99214 ==

== ENCOUNTER 2022-02-03 03:29 | Outpatient (CLI) | payer OTHER, SELFPAY ==
[2022-02-03 16:23] LABS: ALT 70 U/L (16-63); AST 52 U/L (15-37); Albumin 4.1 g/dL (3.4-5.0); Alkaline Phosphatase 106 U/L (46-116); Anion Gap 10.2 mmol/L (3-11); BUN 19 mg/dL (7-18); Bilirubin, Total 0.5 mg/dL (0.2-1.0); CO2 25.8 mmol/L (21.0-32.0); CREATININE 0.9 mg/dL (0.70-1.30); Calcium 9.5 mg/dL (8.5-10.1); Chloride 103 mmol/L (98-107); Estimated GFR 90.74 (mL/min/1.73m2); Glucose 188 mg/dL (74-106); Potassium 4.3 mmol/L (3.5-5.1); Sodium 139 mmol/L (136-145); Total Protein 7.9 g/dL (6.4-8.2)
== END 2022-02-03 03:30 | disposition home or self-care (01) ==
LOC: LBO 03:29
PROVIDERS: PCP Family Medicine; Visit Provider Internal Medicine Cardiovascular Disease
DX: Z79.899 Other long term (current) drug therapy (principal); I48.0 Paroxysmal atrial fibrillation
CPT/HCPCS: 36415; 80053; 84443

== ENCOUNTER → 2022-02-04 14:17 | Outpatient (BNVA) | payer OTHER, SELFPAY | PROVIDERS: PCP Family Medicine; Visit Provider Internal Medicine Cardiovascular Disease | DX: Z95.810 Presence of automatic (implantable) cardiac defibrillator (principal); Z79.01 Long term (current) use of anticoagulants; I25.10 Atherosclerotic heart disease of native coronary artery without angina pectoris; I48.0 Paroxysmal atrial fibrillation; I25.5 Ischemic cardiomyopathy | CPT/HCPCS: 99214 ==

== ENCOUNTER → 2022-02-05 08:51 | Outpatient (BNVA) | payer OTHER, SELFPAY | PROVIDERS: PCP Family Medicine; Visit Provider Physician Assistant | DX: Z95.810 Presence of automatic (implantable) cardiac defibrillator (principal); I47.29 Other ventricular tachycardia; I25.5 Ischemic cardiomyopathy; I48.0 Paroxysmal atrial fibrillation | CPT/HCPCS: 93282 ==

== ENCOUNTER → 2022-04-01 13:23 | Outpatient (BNVA) | payer OTHER, SELFPAY | PROVIDERS: PCP Family Medicine; Referring Provider Family Medicine; Visit Provider Nurse Practitioner Adult Health | DX: E11.42 Type 2 diabetes mellitus with diabetic polyneuropathy (principal); E53.8 Deficiency of other specified B group vitamins; R25.1 Tremor, unspecified; R26.89 Other abnormalities of gait and mobility | CPT/HCPCS: 99213; 99214 ==

== ENCOUNTER 2022-05-21 16:01 | Outpatient (REF) | payer OTHER, SELFPAY ==
[2022-05-21 19:51] LABS: HCT 46.4 % (40.0-50.0); HGB 15.4 g/dL (13.5-17.5); MCH 29.5 pg (27.0-33.0); MCHC 33.2 % (32.0-36.0); MCV 89 fL (80-95); MPV 9.4 fL (8.0-11.0); Platelet Count 223 10^3/uL (130-400); RBC 5.22 10^6/uL (4.36-5.78); RDW 13.7 % (11.8-14.1); RDW-SD 44.8 fL; WBC 7.09 10^3/uL (4.4-10.8)
[2022-05-21 20:38] LABS: ALT 61 U/L (16-63); AST 53 U/L (15-37); Albumin 4.5 g/dL (3.4-5.0); Alkaline Phosphatase 73 U/L (46-116); BUN 17 mg/dL (7-18); Bilirubin, Total 0.7 mg/dL (0.2-1.0); CREATININE 1.1 mg/dL (0.70-1.30); Calcium 9.3 mg/dL (8.5-10.1); Chloride 102 mmol/L (98-107); Estimated GFR 71.32 (mL/min/1.73m2); Glucose 168 mg/dL (74-106); Magnesium 1.4 mg/dL (1.8-2.4); Potassium 4.6 mmol/L (3.5-5.1); Sodium 140 mmol/L (136-145); TSH (W/Ref FT4) 0.74 uIU/mL (0.36-3.74); Total Protein 7.6 g/dL (6.4-8.2)
== END 2022-05-21 16:02 | disposition home or self-care (01) ==
LOC: NCHCN 16:01
PROVIDERS: PCP Family Medicine; Visit Provider Family Medicine
DX: R25.1 Tremor, unspecified (principal); E61.2 Magnesium deficiency; K75.81 Nonalcoholic steatohepatitis (NASH)
CPT/HCPCS: 80053; 85027; 83735; 84443

== ENCOUNTER 2022-07-10 16:45 | Emergency (ER) | payer OTHER, SELFPAY ==
--- NOTE | 2022-07-10 16:45 | RT.EKG_ITS ---
APPROVED REPORT Exam: Resting ECG Reason for Exam: high blood pressure Patient Location: E HR:68 bpm ECG Measurements Heart Rate 68 AXIS AR 59 P 0 QRSd 130 QRS -69 QT 459 T 41 QTc 489 Conclusion Sinus rhythm...normal P axis, V-rate 60- 99 Left bundle branch block...QRSd>120, broad/notched R sinus rhytm, left axis, LBBB
[2022-07-10 16:52] VITALS: BP 182/83; PULSE 69; RESP 18; TEMP 35.7; O2SAT 99
--- NOTE | 2022-07-10 17:45 | DI.RAD_ITS ---
Exam(s) XR CHEST 2V PA LATERAL EXAM: XR CHEST 2V PA LATERAL CLINICAL HISTORY: Chest Pain TECHNIQUE: 2D digital imaging was performed of the chest. Two images were obtained. PA and lateral views were obtained. COMPARISON: CR XR PORTABLE CHEST AP from 11/22/2021 FINDINGS: MEDIASTINUM: Normal. HEART: Normal. Cardiac pacemaker is in place. PULMONARY VASCULATURE: Normal. LUNGS: Clear. PLEURAL SPACE: No pleural effusion or pneumothorax. BONE:Within normal limits for the patient's age. There again seen plate and screws transfixing old l eft rib fractures. OTHER FINDINGS:Normal. IMPRESSION: No acute pulmonary findings. DATA REPOSITORY: RADIATION DOSE DELIVERED:
[2022-07-10 17:46] VITALS: BP 150/90
[2022-07-10 18:05] VITALS: RESP 18
[2022-07-10 18:08] LABS: Abs Immature Grans 0.03 10^3/uL (0.0-0.06); Absolute Basophil Count 0.06 10^3/uL (0.0-0.2); Absolute Eosinophil Count 0.44 10^3/uL (0.0-0.7); Absolute Lymphocyte Count 2.66 10^3/uL (1.2-3.4); Absolute Monocyte Count 0.46 10^3/uL (0.1-0.8); Absolute Neutrophil Count 4.38 10^3/uL (1.2-6.7); Basophils % 0.7; Eosinophils % 5.5; HCT 46.1 % (40.0-50.0); HGB 15.3 g/dL (13.5-17.5); Immature Grans % 0.4; Lymphocytes % 33.1; MCH 30.4 pg (27.0-33.0); MCHC 33.2 % (32.0-36.0); MCV 92 fL (80-95); MPV 8.8 fL (8.0-11.0); Monocytes % 5.7; Neutrophils % 54.6; Platelet Count 200 10^3/uL (130-400); RBC 5.04 10^6/uL (4.36-5.78); RDW 13.8 % (11.8-14.1); RDW-SD 46.5 fL; WBC 8.03 10^3/uL (4.4-10.8)
--- NOTE | 2022-07-10 18:16 | W.ED.GENAD ---
Discharge Plan Disposition Patient Disposition: Home Discharge Details Clinical Impression: Chest pain Primary Care Provider: Dewayne Carrington ED Provider: Mary Ayala Home Meds and New Rx's Prescriptions: Continued clonazepam [Klonopin] 1 mg tablet 1 mg PO DAILY PRN ferrous gluconate 324 mg (37.5 mg iron) tablet 324 mg PO DAILY Patient Comments: not taking amiodarone [Pacerone] 200 mg tablet 200 mg PO DAILY cyanocobalamin (vitamin B-12) [Vitamin B-12] 1,000 mcg tablet 1,000 mcg PO DAILY Patient Comments: not taking mecobalamin (vitamin B12) 1,000 mcg tablet,chewable 1,000 mcg PO DAILY Patient Comments: not taking Trintellix 10 mg tablet 10 mg PO DAILY Patient Comments: not taking docusate sodium 50 mg capsule 50 mg PO DAILY PRN nitroglycerin [Nitrostat] 0.4 mg tablet, sublingual 0.4 mg sublingual Q5M PRN Rx Instructions: do not exceed 3 doses per episode triamcinolone acetonide 0.5 % cream 1 applic topical BID PRN zolpidem 5 mg tablet 5 mg PO QHS PRN cholecalciferol (vitamin D3) [Vitamin D3] 50 mcg (2,000 unit) capsule 2,000 unit PO DAILY Xarelto 20 mg tablet 20 mg PO DAILY Qty: 90 3RF metoprolol succinate 100 mg tablet extended release 24 hr 100 mg PO BID Qty: 180 3RF lamotrigine 100 mg tablet 200 mg PO DAILY Patient Comments: 07/23/17-200mg PO daily psyllium husk [Fiber (psyllium husk)] 0.52 gram capsule 0.52 g PO DAILY polyethylene glycol 3350 [Miralax] 17 gram powder in packet 17 g PO DAILY sennosides 17.2 mg tablet 17.2 mg PO BID PRN (Reason: constipation) Qty: 14 0RF pantoprazole [Protonix] 20 MG tablet,delayed release (DR/EC) 40 mg PO HS Patient Comments: 07/23/17-40mg PO daily per pt Victoza 3-Ruddy 0.6 MG/0.1 ML pen injector 1.8 mg SQ HS tramadol 50 MG tablet 50 mg PO PRN PRN multivitamin Capsule 1 cap PO DAILY vitamin B complex Capsule 1 cap PO DAILY cholecalciferol (vitamin D3) 50 mcg (2,000 unit) Capsule 50 mcg PO DAILY Mag 64 64 mg Tablet,Delayed Release (Dr/Ec) 128 mg PO BID Qty: 120 0RF atorvastatin [Lipitor] 80 mg tablet 20 mg PO HS Patient Comments: TAKE 1 TABLET BY MOUTH DAILY AT BEDTIME metformin 1,000 mg tablet 1,000 mg PO BID@0800,1700 lisinopril [Zestril] 2.5 mg tablet 2.5 mg PO QAM Patient Comments: TAKE 1 TABLET BY MOUTH EVERY DAY multivitamin Tablet 1 tab PO DAILY Discharge Instructions Instructions: Chest Pain (ED) Additional Instructions: No evidence of heart attack on your work-up today, no evidence of blood clot in your lungs. This may be because from anxiety however to follow-up with your primary care provider for further evaluation if needed. The pacemaker was interrogated and no episodes noted. Follow up with primary care provider in 3-5 days. Return to ED sooner if any worsening or concerns. Increase oral fluids. Referrals: Dewayne Carrington [Primary Care Provider] - 3 days Medical Decision Making 72-year-old male presents to the ER with a chief complaint of chest tightness, anxiousness and high blood pressure which she noticed earlier today. He did take 2 Tylenol PM and symptoms ZzzQuil prior to arrival which did little to alleviate his symptoms. He does have a past medical history of an ICD, atrial fibrillation controlled by amiodarone, peripheral neuropathy obstructive sleep apnea gastritis diabetes. He does take Xarelto. He also endorses dyspnea and feeling clammy and weak. Cardiac work-up ordered including serial troponins, proBNP chest x-ray. Patient is on Xarelto. Will consider CT imaging. We will interrogate his [employer] pacemaker ICD. Pacemaker interrogated no new episodes since February 05, 2022 no shocks delivered CBC largely within normal limits, INR 1.4, sodium 142 potassium 4.5, initial troponin less than 50, glucose 145 magnesium 1.6 I did order 400 mg p.o. magnesium, AST 55 ALT 64 proBNP is 313. Pending serial troponin. 2132: Repeat troponin within normal limits discharge patient home with PCP follow-up. Discussed strict return instructions This text was generated using [employer] system, please disregard any oddities of phrase or misspellings. Medical Records Medical records reviewed: Yes I reviewed the patient's medical records. Imaging Data Radiologic Study: Imaging: CT Scan Radiologist's impression: COMPARISON: CT CHEST/ABD/PEL W 11/19/2021 16:28 FINDINGS: Tubes, catheters and devices: Left chest wall pacemaker, intact as visualized. Pulmonary arteries: No pulmonary emboli. Aorta: No aortic aneurysm. No aortic dissection. Lungs: No pneumonia or pulmonary infarct is seen. Scattered microatelectasis. Pleural spaces: No pneumothorax. No pleural effusion. Heart: Moderate cardiomegaly. Trace pericardial fluid appears likely physiologic. Lymph nodes: No enlarged lymph nodes. Gallbladder and bile ducts: Cholecystectomy. Bones/joints: Internal fixation of left-sided ribs. Chronic healed rib deformities. No acute fracture or subluxation. Soft tissues: No suspicious lesions. IMPRESSION: 1. No pulmonary emboli are seen. 2. Moderate cardiomegaly. 3. Incidental findings as described. Thank you for allowing us to participate in the care of your patient. Dictated and Authenticated by: Karly Zamorano MD Lab Data Lab results reviewed: Yes I reviewed the patient's lab results. Labs: Laboratory Tests Range/Units 07/10/22 07/10/22 07/10/22 18:02 18:02 18:02 WBC (4.4-10.8) 10^3/uL 8.03 RBC (4.36-5.78) 10^6/uL 5.04 Hgb (13.5-17.5) g/dL 15.3 Hct (40.0-50.0) % 46.1 MCV (80-95) fL 92 MCH (27.0-33.0) pg 30.4 MCHC (32.0-36.0) % 33.2 RDW (11.8-14.1) % 13.8 Plt Count (130-400) 10^3/uL 200 MPV (8.0-11.0) fL 8.8 Immature Gran % 0.4 Neutrophils % 54.6 Lymphocytes % 33.1 Monocytes % 5.7 Eosinophils % 5.5 Basophils % 0.7 Nucleated RBC % (0.0-0.3) % 0.0 Absolute Neutrophils (1.2-6.7) 10^3/uL 4.38 Absolute Lymphocytes (1.2-3.4) 10^3/uL 2.66 Absolute Monocytes (0.1-0.8) 10^3/uL 0.46 Absolute Eosinophils (0.0-0.7) 10^3/uL 0.44 Absolute Basophils (0.0-0.2) 10^3/uL 0.06 PT (9.3-11.0) sec 13.8 H INR (0.9-1.1) 1.4 H APTT (21.5-31.9) sec 32.8 H Sodium (136-145) mmol/L 142 Potassium (3.5-5.1) mmol/L 4.5 Chloride (98-107) mmol/L 106 Carbon Dioxide (21.0-32.0) mmol/L 27.2 Anion Gap (3-11) mmol/L 8.8 BUN (7-18) mg/dL 16 Creatinine (0.70-1.30) mg/dL 1.0 Est GFR (CKD-EPI 2020) (mL/min/1.73m2) 79.47 Glucose (74-106) mg/dL 145 H Calcium (8.5-10.1) mg/dL 9.8 Magnesium (1.8-2.4) mg/dL 1.6 L Total Bilirubin (0.2-1.0) mg/dL 0.5 AST (15-37) U/L 55 H ALT (16-63) U/L 64 H Alkaline Phosphatase (46-116) U/L 80 Troponin I (<or=60) ng/L < 50 NT-Pro-B Natriuret Pep (<300) pg/mL 313 H Total Protein (6.4-8.2) g/dL 7.7 Albumin (3.4-5.0) g/dL 4.1 Range/Units 07/10/ 21:02 WBC (4.4-10.8) 10^3/uL RBC (4.36-5.78) 10^6/uL Hgb (13.5-17.5) g/dL Hct (40.0-50.0) % MCV (80-95) fL MCH (27.0-33.0) pg MCHC (32.0-36.0) % RDW (11.8-14.1) % Plt Count (130-400) 10^3/uL MPV (8.0-11.0) fL Immature Gran % Neutrophils % Lymphocytes % Monocytes % Eosinophils % Basophils % Nucleated RBC % (0.0-0.3) % Absolute Neutrophils (1.2-6.7) 10^3/uL Absolute Lymphocytes (1.2-3.4) 10^3/uL Absolute Monocytes (0.1-0.8) 10^3/uL Absolute Eosinophils (0.0-0.7) 10^3/uL Absolute Basophils (0.0-0.2) 10^3/uL PT (9.3-11.0) sec INR (0.9-1.1) APTT (21.5-31.9) sec Sodium (136-145) mmol/L Potassium (3.5-5.1) mmol/L Chloride (98-107) mmol/L Carbon Dioxide (21.0-32.0) mmol/L Anion Gap (3-11) mmol/L BUN (7-18) mg/dL Creatinine (0.70-1.30) mg/dL Est GFR (CKD-EPI 2020) (mL/min/1.73m2) Glucose (74-106) mg/dL Calcium (8.5-10.1) mg/dL Magnesium (1.8-2.4) mg/dL Total Bilirubin (0.2-1.0) mg/dL AST (15-37) U/L ALT (16-63) U/L Alkaline Phosphatase (46-116) U/L Troponin I (<or=60) ng/L < 50 NT-Pro-B Natriuret Pep (<300) pg/mL Total Protein (6.4-8.2) g/dL Albumin (3.4-5.0) g/dL HPI General Mode of arrival: ambulatory. Date/Time Provider Initiated Documentation: 07/10/22 17:48. Limitations to Documentation: no limitations. Information obtained by: patient, RN notes reviewed and old records reviewed. HPI Narrative: 72-year-old male presents to the ER with a chief complaint of chest tightness, anxiousness and high blood pressure which she noticed earlier today. He did take 2 Tylenol PM and symptoms ZzzQuil prior to arrival which did little to alleviate his symptoms. He does have a past medical history of an ICD, atrial fibrillation controlled by amiodarone, peripheral neuropathy obstructive sleep apnea gastritis diabetes. He does take Xarelto. He also endorses dyspnea and feeling clammy and weak. Related Data Home Medications Medication Instructions Recorded Confirmed pantoprazole 20 mg tablet,delayed 40 mg PO HS 12/06/13 07/10/22 release (Protonix) liraglutide 0.6 mg/0.1 mL (18 mg/3 1.8 mg SQ HS 01/19/17 07/10/22 mL) subcutaneous pen injector (Victoza 3-Ruddy) tramadol 50 mg tablet 50 mg PO PRN PRN 07/24/17 07/10/22 cholecalciferol (vitamin D3) 50 2,000 unit PO DAILY 06/13/19 07/10/22 mcg (2,000 unit) capsule (Vitamin D3) rivaroxaban 20 mg tablet (Xarelto) 20 mg PO DAILY #90 tabs 09/06/19 07/10/22 cyanocobalamin (vitamin B-12) 1,000 mcg PO DAILY 12/13/19 04/01/22 1,000 mcg tablet (Vitamin B-12) magnesium chloride 64 mg 128 mg PO BID #120 tabs 11/29/20 07/10/22 (magnesium chloride) tablet,delayed release (Mag 64) ferrous gluconate 324 mg (37.5 mg 324 mg PO DAILY 12/04/20 04/01/22 iron) tablet atorvastatin 80 mg tablet (Lipitor) 20 mg PO HS 12/19/20 07/10/22 metoprolol succinate 100 mg 100 mg PO BID #180 tabs 09/20/21 07/10/22 tablet,extended release 24 hr lamotrigine 100 mg tablet 200 mg PO DAILY 10/03/21 04/01/22 polyethylene glycol 3350 17 gram 17 g PO DAILY 10/03/21 07/10/22 oral powder packet (Miralax) psyllium husk 0.52 gram capsule 0.52 g PO DAILY 10/03/21 07/10/22 (Fiber (psyllium husk)) mecobalamin (vitamin B12) 1,000 1,000 mcg PO DAILY 11/05/21 07/10/22 mcg chewable tablet lisinopril 2.5 mg tablet (Zestril) 2.5 mg PO QAM 11/20/21 07/10/22 metformin 1,000 mg tablet 1,000 mg PO BID@0800,1700 11/20/21 07/10/22 multivitamin 1 tab PO DAILY 11/20/21 02/05/22 sennosides 17.2 mg tablet 17.2 mg PO BID PRN constipation 11/24/21 07/10/22 #14 tabs amiodarone 200 mg tablet (Pacerone) 200 mg PO DAILY 04/01/22 07/10/22 clonazepam 1 mg tablet (Klonopin) 1 mg PO DAILY PRN 04/01/22 07/10/22 docusate sodium 50 mg capsule 50 mg PO DAILY PRN 04/01/22 07/10/22 nitroglycerin 0.4 mg sublingual 0.4 mg sublingual Q5M PRN 04/01/22 07/10/22 tablet (Nitrostat) triamcinolone acetonide 0.5 % 1 applic topical BID PRN 04/01/22 07/10/22 topical cream vortioxetine 10 mg tablet 10 mg PO DAILY 04/01/22 04/01/22 (Trintellix) zolpidem 5 mg tablet 5 mg PO QHS PRN 04/01/22 07/10/22 cholecalciferol (vitamin D3) 50 50 mcg PO DAILY 07/10/22 07/10/22 mcg (2,000 unit) capsule multivitamin 1 cap PO DAILY 07/10/22 07/10/22 vitamin B complex 1 cap PO DAILY 07/10/22 07/10/22 Previous Rx's Medication Instructions Recorded rivaroxaban 20 mg tablet (Xarelto) 20 mg PO DAILY #90 tabs 09/06/19 magnesium chloride 64 mg 128 mg PO BID #120 tabs 11/29/20 (magnesium chloride) tablet,delayed release (Mag 64) metoprolol succinate 100 mg 100 mg PO BID #180 tabs 09/20/21 tablet,extended release 24 hr sennosides 17.2 mg tablet 17.2 mg PO BID PRN constipation 11/24/21 #14 tabs Allergies Allergy/AdvReac Type Severity Reaction Status Date / Time adhesive tape Allergy Unknown rash Verified 07/10/22 16:54 latex AdvReac Intermediate trouble Verified 07/10/22 16:54 breathing/moving General Stated Complaint: Chest Pain SHAILESH: 3 Review of Systems All systems reviewed & are unremarkable except as noted in HPI and below Constitutional Constitutional: Reports weakness Cardiovascular Cardiovascular: Reports chest pain and Reports dyspnea Respiratory Respiratory: Reports dyspnea Neurologic Neurologic: Reports weakness PFSH All Active Problems (Updated 07/10/22 @ 21:35 by Mary Ayala NP) Chest pain (Acute) Essential tremor (Acute) Paroxysmal atrial fibrillation (Acute) ICD (implantable cardioverter-defibrillator), dual, in situ (Acute) Left shoulder pain (Acute) Left sided sciatica (Acute) Hypokinesia of left ventricle (Acute) EF 48% Multiple fractures of ribs of left side (Acute) 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 management (Acute) 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 (Acute) Imbalance (Acute) Discharge planning issues (Acute) Hammer toe (Acute) Peripheral neuropathy (Chronic) Ventricular tachyarrhythmia (Chronic) s/p ICD 2013 Clinical depression (Chronic) Obstructive sleep apnea (Chronic) Atrial fibrillation (Chronic) Diverticulosis (Acute) Gastritis (Acute) Contusion of left knee, initial encounter (Acute 08/12/17) Disequilibrium (Chronic 11/10/16) Dysphagia (Acute) Contact dermatitis (Acute) Magnesium deficiency (Acute) Hypertension (Chronic) Diabetes (Chronic) Chronic pain (Chronic) Medical History Abrasion hip/leg Anal fissure CAD (coronary artery disease) Contusion of left chest wall Contusion of left elbow and forearm Contusion of left lung Degenerative disc disease Depression determined by examination Dermatitis Diabetic peripheral neuropathy DVT prophylaxis Esophageal ring Family history of nephrolithiasis Frequent falls GERD (gastroesophageal reflux disease) H/O ventricular tachycardia Hallucinations Hard stool Hematuria Hemothorax on left minimal Hiatal hernia Hyperlipidemia pt. states its a fissure near his coccyx Hypomagnesemia Iron deficiency anemia Ischemic cardiomyopathy Kidney stones Lumbar degenerative disc disease Medication monitoring encounter Pleural effusion Pneumothorax on left Pressure ulcer, buttock Rib pain on right side Steatohepatitis Type 2 diabetes mellitus Unspecified fracture of the lower end of right radius, subsequent encounter for closed fracture with routine healing (08/12/17) Surgical History History of cholecystectomy History of colonoscopy 12/17/18 History of coronary artery stent placement History of esophagogastroduodenoscopy (EGD) 12/17/18 History of permanent cardiac pacemaker placement with defib Family History Father Heart disease Mother Heart disease Brother Alcoholism Social History Smoking/Tobacco Use Status: Current every day Tobacco Type: smokeless tobacco Counseling given: patient declined Smoking risk assessment performed?: Yes Alcohol Intake: former Drug use: Never Substance use type: does not use Details: Pt states he vapes daily current occupation: Retired What type of physical activity do you participate in: bicycling Frequency: 3-4 times per week Do you feel safe at home: Yes Do you feel safe in your relationship?: Yes Exam Narrative Exam Narrative: Constitutional: Alert and oriented x3. Appears stated age. Normal body habitus. Head: Normocephalic, no trauma. Eyes: Pupils PERRL, Red reflex noted, EOM's intact. Eyelids symmetrical without lesions, discharge, or swelling. ENT: Bilateral TM's WNL, External ear normal to inspection, no mastoid TTP, swelling, or erythema, Nasal turbinates WNL, no nasal discharge. Normal dentition, Posterior pharynx WNL, no exudate. Chest: RRR, Normal S1, S2, distal pulses intact. Resp: Lungs clear to auscultation bilaterally, no wheezes, rales, or rhonchi. Abdomen: Soft, non-distended, Normoactive bowel sounds all 4 quads. Musculoskeletal: Normal gait, 5/5 strength to all four extremities. Skin: No suspicious rashes or lesions. Capillary refill less than 2 sec. Neurologic: Cranial nerves II-XII intact. Alert and oriented x 3. Motor: No deficits noted. Sensory: Intact bilaterally all 4 extremities. Reflexes: DTR's intact bilaterally.. Hematologic/Lymphatic: No ecchymosis, no lymphadenopathy. Course Vital Signs Vital signs: Vital Signs Temperature 35.7 C L 07/10/22 16:52 Pulse 69 07/10/22 16:52 Respiratory Rate 18 07/10/22 16:52 Blood Pressure 182/83 H 07/10/22 16:52 Pulse Oximetry 99 07/10/22 16:52 Temperature 35.7 C L 07/10/22 16:52 Pulse 69 07/10/22 16:52 Respiratory Rate 18 07/10/22 18:05 Respiratory Effort Normal, Non-Labored 07/10/22 18:05 Respiratory Depth Normal 07/10/22 18:05 Respiratory Pattern Normal 07/10/22 18:05 Blood Pressure 150/90 H 07/10/22 17:46 Blood Pressure Position Sitting 07/10/22 16:52 Pulse Oximetry 99 07/10/22 16:52 Oxygen Delivery Method Room Air 07/10/22 16:52 Oxygen Flow Rate 0 07/10/22 16:52 Lab/Test Results Lab/Test Results: Laboratory Tests Range/Units 07/10/22 18:02 WBC (4.4-10.8) 10^3/uL 8.03 RBC (4.36-5.78) 10^6/uL 5.04 Hgb (13.5-17.5) g/dL 15.3 Hct (40.0-50.0) % 46.1 MCV (80-95) fL 92 MCH (27.0-33.0) pg 30.4 MCHC (32.0-36.0) % 33.2 RDW (11.8-14.1) % 13.8 Plt Count (130-400) 10^3/uL 200 MPV (8.0-11.0) fL 8.8 Immature Gran % 0.4 Neutrophils % 54.6 Lymphocytes % 33.1 Monocytes % 5.7 Eosinophils % 5.5 Basophils % 0.7 Nucleated RBC % (0.0-0.3) % 0.0 Absolute Neutrophils (1.2-6.7) 10^3/uL 4.38 Absolute Lymphocytes (1.2-3.4) 10^3/uL 2.66 Absolute Monocytes (0.1-0.8) 10^3/uL 0.46 Absolute Eosinophils (0.0-0.7) 10^3/uL 0.44 Absolute Basophils (0.0-0.2) 10^3/uL 0.06
[2022-07-10 18:23] VITALS: BP 164/89; PULSE 63; TEMP 36.6; O2SAT 98
[2022-07-10 18:23] LABS: INR 1.4 (0.9-1.1); PTT Activated 32.8 sec (21.5-31.9); Prothrombin Time 13.8 sec (9.3-11.0)
--- NOTE | 2022-07-10 18:30 | DI.CT_ITS ---
Exam(s) CT CHEST PE CTA EXAM: CT CHEST PE CTA CLINICAL HISTORY: Chest Pain, SOB. TECHNIQUE: Imaging Protocol: Axial CT angiography was performed with multi-slice acquisition and mu lti-planar and/or 3D reconstructions. CONTRAST MATERIAL: Intravenous: Omnipaque 350 contrast volume:100 mL COMPARISON: CT CT CHEST/ABD/PEL W from 11/19/2021 FINDINGS: Tracheobronchial tree: Patent where visualized. Pulmonary parenchyma: No consolidation or dominant measurable mass. No architectural distortion. Pulmonary Arteries: No evidence of filling defect to suggest pulmonary emboli. Mediastinum and Ly: No dominant adenopathy or fluid collection. The esophagus is unremarkable. Visualized thyroid gland: Unremarkable. Pleura: No effusion or pneumothorax. Heart: Mild cardiomegaly. Coronary artery calcification is present. No pericardial effusion. Aorta: Thoracic aorta non-dilated. Atherosclerosis is present. Upper abdomen: Status post cholecystectomy. Tubes, Catheters, and Lines: There is a cardiac pacer in place. Soft tissues: Unremarkable. Bones: There are plate and screws transfixing multiple left old rib fractures. IMPRESSION: 1. No evidence of pulmonary embolism or thoracic aortic aneurysm. 2. No acute pulmonary process. RADIATION DOSE DELIVERED: 388.44mGy.cm Total DLP DATA REPOSITORY: All CT scans at this facility are submitted to the National Radiology Data Registry (NRDR) Dose Index Registry (DIR) with the [employer] (ACR). RADIATION OPTIMIZATION: All CT scans at this facility use at least one of these dose optimization te chniques: automated exposure control; mA and/or kV adjustment per patient size (includes targeted exa ms where dose is matched to clinical indication); or iterative reconstruction.
[2022-07-10 18:33] LABS: ALT 64 U/L (16-63); AST 55 U/L (15-37); Albumin 4.1 g/dL (3.4-5.0); Alkaline Phosphatase 80 U/L (46-116); Anion Gap 8.8 mmol/L (3-11); BUN 16 mg/dL (7-18); Bilirubin, Total 0.5 mg/dL (0.2-1.0); CO2 27.2 mmol/L (21.0-32.0); Calcium 9.8 mg/dL (8.5-10.1); Chloride 106 mmol/L (98-107); Estimated GFR 79.47 (mL/min/1.73m2); Glucose 145 mg/dL (74-106); Magnesium 1.6 mg/dL (1.8-2.4); NT-proBNP 313 pg/mL (<300); Potassium 4.5 mmol/L (3.5-5.1); Sodium 142 mmol/L (136-145); Total Protein 7.7 g/dL (6.4-8.2); Troponin I < 50 ng/L (<or=60)
--- NOTE | 2022-07-10 18:34 | DI.VRAD_ITS ---
PROCEDURE INFORMATION: Exam: XR Chest Exam date and time: 07/10/2022 18:25 Age: 72 years old Clinical indication: Other: Chest pain; Prior surgery; Surgery date: 6+ months TECHNIQUE: Imaging protocol: Radiologic exam of the chest. Views: 2 views. COMPARISON: CR XR PORTABLE CHEST AP 11/22/2021 15:46 FINDINGS: Tubes, catheters and devices: Dual lead pacemaker in the expected position. Lungs: Mild hyperinflation without airspace consolidation. Pleural spaces: No pleural effusion. No pneumothorax. Heart/Mediastinum: No cardiomegaly. Bones/joints: Internal fixation of left-sided ribs, intact and similar to prior. No displaced fracture. Intraperitoneal space: Right upper quadrant clips, probable cholecystectomy. IMPRESSION: 1. Mild hyperinflation without airspace consolidation. 2. Additional chronic findings as described. Dictated and Authenticated by: Karly Zamorano MD. Ordering:VERONICA Hernandez MD
[2022-07-10] MEDS: Omnipaque 350 MG/ML 100 ML BTL IJ (19:07)
[2022-07-10] MEDS: Normal Saline - Diluent 50 ML VIAL IJ (19:08)
--- NOTE | 2022-07-10 19:24 | DI.VRAD_ITS ---
PROCEDURE INFORMATION: Exam: CTA Chest With Contrast Exam date and time: 07/10/2022 19:03 Age: 72 years old Clinical indication: Chest wall pain; Prior surgery; Surgery date: 6+ months; Surgery type: Pacemaker, rib plates; Additional info: Chest pain, SOB TECHNIQUE: Imaging protocol: Computed tomographic angiography of the chest with contrast. 3D rendering (Not supervised by radiologist): MIP and/or 3D reconstructed images were created by the technologist. Radiation optimization: All CT scans at this facility use at least one of these dose optimization techniques: automated exposure control; mA and/or kV adjustment per patient size (includes targeted exams where dose is matched to clinical indication); or iterative reconstruction. Contrast material: OMNI 350; Contrast volume: 100 ml; Contrast route: INTRAVENOUS (IV); COMPARISON: CT CHEST/ABD/PEL W 11/19/2021 16:28 FINDINGS: Tubes, catheters and devices: Left chest wall pacemaker, intact as visualized. Pulmonary arteries: No pulmonary emboli. Aorta: No aortic aneurysm. No aortic dissection. Lungs: No pneumonia or pulmonary infarct is seen. Scattered microatelectasis. Pleural spaces: No pneumothorax. No pleural effusion. Heart: Moderate cardiomegaly. Trace pericardial fluid appears likely physiologic. Lymph nodes: No enlarged lymph nodes. Gallbladder and bile ducts: Cholecystectomy. Bones/joints: Internal fixation of left-sided ribs. Chronic healed rib deformities. No acute fracture or subluxation. Soft tissues: No suspicious lesions. IMPRESSION: 1. No pulmonary emboli are seen. 2. Moderate cardiomegaly. 3. Incidental findings as described. Dictated and Authenticated by: Karly Zamorano MD. Ordering:VERONICA Hernandez MD
[2022-07-10] MEDS: Magnesium Oxide 400 MG TAB PO (19:25)
[2022-07-10 21:25] LABS: Troponin I < 50 ng/L (<or=60)
[2022-07-10 21:30] VITALS: BP 140/75; PULSE 56; RESP 20; TEMP 37.1; O2SAT 97
== END 2022-07-10 21:46 | disposition home or self-care (01) ==
PROVIDERS: Emergency Provider Registered Nurse Emergency; PCP Family Medicine
DX: R07.89 Other chest pain (principal); I25.10 Atherosclerotic heart disease of native coronary artery without angina pectoris; E11.42 Type 2 diabetes mellitus with diabetic polyneuropathy; I10 Essential (primary) hypertension; I48.91 Unspecified atrial fibrillation; Z86.718 Personal history of other venous thrombosis and embolism; Z79.01 Long term (current) use of anticoagulants; Z79.84 Long term (current) use of oral hypoglycemic drugs; R06.00 Dyspnea, unspecified
CPT/HCPCS: 36415; 71275; 80053; 93005; 99283; 71046; 83735; 83880; 84484; 85025; 85610; 85730; 93010; 99285; J3490

== ENCOUNTER → 2022-07-31 12:57 | Outpatient (BNVA) | payer OTHER, SELFPAY | PROVIDERS: PCP Family Medicine; Referring Provider Family Medicine; Visit Provider Internal Medicine Cardiovascular Disease | DX: Z79.01 Long term (current) use of anticoagulants (principal); Z95.810 Presence of automatic (implantable) cardiac defibrillator; I10 Essential (primary) hypertension; I48.0 Paroxysmal atrial fibrillation; I25.10 Atherosclerotic heart disease of native coronary artery without angina pectoris; I25.5 Ischemic cardiomyopathy | CPT/HCPCS: 99214 ==

== ENCOUNTER 2022-09-10 22:23 | Outpatient (REF) | payer OTHER, SELFPAY ==
[2022-09-10 21:00] LABS: HGB 14.5 g/dL (13.5-17.5); MCH 30.6 pg (27.0-33.0); MCV 93 fL (80-95); MPV 9.9 fL (8.0-11.0); Platelet Count 237 10^3/uL (130-400); RBC 4.74 10^6/uL (4.36-5.78); RDW 13.7 % (11.8-14.1); RDW-SD 46.3 fL; WBC 5.81 10^3/uL (4.4-10.8)
[2022-09-10 21:12] LABS: Hemoglobin A1C 6.9 % (<5.7)
[2022-09-10 21:13] LABS: ALT 80 U/L (16-63); AST 59 U/L (15-37); Albumin 3.9 g/dL (3.4-5.0); Alkaline Phosphatase 87 U/L (46-116); Anion Gap 12.7 mmol/L (3-11); BUN 13 mg/dL (7-18); Bilirubin, Total 0.5 mg/dL (0.2-1.0); CO2 26.3 mmol/L (21.0-32.0); Calcium 9.6 mg/dL (8.5-10.1); Chloride 103 mmol/L (98-107); Estimated GFR 79.47 (mL/min/1.73m2); Glucose 210 mg/dL (74-106); Magnesium 1.6 mg/dL (1.8-2.4); Potassium 4.3 mmol/L (3.5-5.1); Sodium 142 mmol/L (136-145)
== END 2022-09-10 22:24 | disposition home or self-care (01) ==
LOC: NCHCN 22:23
PROVIDERS: PCP Family Medicine; Visit Provider Family Medicine
DX: E61.2 Magnesium deficiency (principal); R20.2 Paresthesia of skin; K75.81 Nonalcoholic steatohepatitis (NASH); E11.9 Type 2 diabetes mellitus without complications
CPT/HCPCS: 80053; 85027; 83036; 83735

== ENCOUNTER 2022-10-22 17:17 | Emergency (ER) | payer OTHER, SELFPAY ==
--- NOTE | 2022-10-22 17:15 | RT.EKG_ITS ---
APPROVED REPORT Exam: Resting ECG Reason for Exam: chest tingling Patient Location: E HR:62 bpm ECG Measurements Heart Rate 62 AXIS HI 250 P 36 QRSd 148 QRS -69 QT 485 T 31 QTc 492 Conclusion Sinus rhythm...normal P axis, V-rate 60- 99 Prolonged HI interval...HI >220, V-rate 50- 90 Left bundle branch block...QRSd>120, broad/notched R
[2022-10-22 17:24] VITALS: BP 157/71; PULSE 64; RESP 20; TEMP 37; O2SAT 99
--- NOTE | 2022-10-22 17:35 | NUR.NOTE ---
Nursing Note: Pt's BS 133
--- NOTE | 2022-10-22 18:00 | DI.RAD_ITS ---
Exam(s) XR CHEST 2V PA LATERAL EXAM: XR CHEST 2V PA LATERAL CLINICAL HISTORY: Swelling TECHNIQUE: 2D digital imaging was performed. COMPARISON: CR,XR XR CHEST 2V PA LATERAL from 07/10/[address] CHEST PE CTA from 07/10/2022 FINDINGS: Heart size is normal. A pacemaker and coronary artery stents are again noted. Fixation plates are n oted along left lower ribs. The lungs are clear. IMPRESSION: No acute abnormality. DATA REPOSITORY: RADIATION DOSE DELIVERED:
--- NOTE | 2022-10-22 19:04 | W.ED.GENAD ---
Discharge Plan Disposition Patient Disposition: Home Discharge Details Clinical Impression: Bilateral lower extremity edema Primary Care Provider: Dewayne Carrington ED Provider: Mary Ayala Home Meds and New Rx's Prescriptions: Continued clonazepam [Klonopin] 1 mg tablet 1 mg PO DAILY PRN ferrous gluconate 324 mg (37.5 mg iron) tablet 324 mg PO DAILY Patient Comments: not taking amiodarone [Pacerone] 200 mg tablet 200 mg PO DAILY nitroglycerin [Nitrostat] 0.4 mg tablet, sublingual 0.4 mg sublingual Q5M PRN (Reason: chest pain) Qty: 30 3RF Rx Instructions: do not exceed 3 doses per episode cyanocobalamin (vitamin B-12) [Vitamin B-12] 1,000 mcg tablet 1,000 mcg PO DAILY Patient Comments: not taking mecobalamin (vitamin B12) 1,000 mcg tablet,chewable 1,000 mcg PO DAILY Patient Comments: not taking docusate sodium 50 mg capsule 50 mg PO DAILY PRN triamcinolone acetonide 0.5 % cream 1 applic topical BID PRN zolpidem 5 mg tablet 5 mg PO QHS PRN cholecalciferol (vitamin D3) [Vitamin D3] 50 mcg (2,000 unit) capsule 2,000 unit PO DAILY Xarelto 20 mg tablet 20 mg PO DAILY Qty: 90 3RF lamotrigine 100 mg tablet 200 mg PO DAILY Patient Comments: 07/23/17-200mg PO daily psyllium husk [Fiber (psyllium husk)] 0.52 gram capsule 0.52 g PO DAILY polyethylene glycol 3350 [Miralax] 17 gram powder in packet 17 g PO DAILY sennosides 17.2 mg tablet 17.2 mg PO BID PRN (Reason: constipation) Qty: 14 0RF metoprolol succinate 100 mg tablet extended release 24 hr 100 mg PO BID Qty: 180 3RF pantoprazole [Protonix] 20 MG tablet,delayed release (DR/EC) 40 mg PO HS Patient Comments: 07/23/17-40mg PO daily per pt Victoza 3-Ruddy 0.6 MG/0.1 ML pen injector 1.8 mg SQ HS tramadol 50 MG tablet 50 mg PO PRN PRN multivitamin Capsule 1 cap PO DAILY vitamin B complex Capsule 1 cap PO DAILY cholecalciferol (vitamin D3) 50 mcg (2,000 unit) Capsule 50 mcg PO DAILY Mag 64 64 mg Tablet,Delayed Release (Dr/Ec) 128 mg PO BID Qty: 120 0RF atorvastatin [Lipitor] 80 mg tablet 20 mg PO HS Patient Comments: TAKE 1 TABLET BY MOUTH DAILY AT BEDTIME metformin 1,000 mg tablet 1,000 mg PO BID@0800,1700 lisinopril [Zestril] 2.5 mg tablet 2.5 mg PO QAM Patient Comments: TAKE 1 TABLET BY MOUTH EVERY DAY multivitamin Tablet 1 tab PO DAILY Discharge Instructions Instructions: Edema (ED) Additional Instructions: Please return to Xray department and then ED to have ultrasound of your legs to rule out blood clots. This time the rest of your work-up is within normal limits. Follow up with primary care provider in 3-5 days. Return to ED sooner if any worsening or concerns. Increase oral fluids. Consider wearing compression socks and elevating your legs when sitting or lying down. Referrals: Dewayne Carrington [Primary Care Provider] - 1 week Discharge Data Discharge Date/Time-TO BE ENTERED AT DEPARTURE: 10/22/22 20:34 Medical Decision Making 72-year-old male presents to the ER with a chief complaint of leg swelling which has been ongoing for the last month or more. He does have a history of diabetes and peripheral neuropathy. He also reports tingling in his feet and he is afraid that he may fall. He does have decreased dorsiflexion to his right foot. He does have sensation intact and movement. He does have a small scab noted to the dorsum of his right great toe which she reports has slow healing. No signs of cellulitis erythema or warmth noted. He does have 2+ pitting edema noted to his bilateral feet and ankles. He denies any chest pain or shortness of breath. He does endorse some diarrhea which is not new. Has a past medical history of paroxysmal atrial fibrillation, and ICD in situ, diabetes, depression, obstructive sleep apnea, diverticulosis gastritis. General cardiac work-up ordered including proBNP. I do suspect that this is chronic. Labs are largely within normal limits. I did order an outpatient ultrasound to rule out DVT. This text was generated using [employer] system, please disregard any oddities of phrase or misspellings. Instructed patient to follow-up with PCP. Medical Records Medical records reviewed: Yes I reviewed the patient's medical records. Lab Data Lab results reviewed: Yes I reviewed the patient's lab results. Labs: Laboratory Tests Range/Units 10/22/22 10/22/22 10/22/22 19:08 19:08 21:56 WBC (4.4-10.8) 10^3/uL 6.60 RBC (4.36-5.78) 10^6/uL 4.65 Hgb (13.5-17.5) g/dL 14.4 Hct (40.0-50.0) % 43.2 MCV (80-95) fL 93 MCH (27.0-33.0) pg 31.0 MCHC (32.0-36.0) % 33.3 RDW (11.8-14.1) % 13.7 Plt Count (130-400) 10^3/uL 200 MPV (8.0-11.0) fL 9.1 Immature Gran % 0.5 Neutrophils % 53.2 Lymphocytes % 32.1 Monocytes % 6.7 Eosinophils % 6.7 Basophils % 0.8 Nucleated RBC % (0.0-0.3) % 0.0 Absolute Neutrophils (1.2-6.7) 10^3/uL 3.52 Absolute Lymphocytes (1.2-3.4) 10^3/uL 2.12 Absolute Monocytes (0.1-0.8) 10^3/uL 0.44 Absolute Eosinophils (0.0-0.7) 10^3/uL 0.44 Absolute Basophils (0.0-0.2) 10^3/uL 0.05 Sodium (136-145) mmol/L 144 Potassium (3.5-5.1) mmol/L 4.5 Chloride (98-107) mmol/L 105 Carbon Dioxide (21.0-32.0) mmol/L 29.2 Anion Gap (3-11) mmol/L 9.8 BUN (7-18) mg/dL 14 Creatinine (0.70-1.30) mg/dL 0.9 Est GFR (CKD-EPI 2020) (mL/min/1.73m2) 90.18 Glucose (74-106) mg/dL 126 H Calcium (8.5-10.1) mg/dL 9.5 Magnesium (1.8-2.4) mg/dL 1.8 Total Bilirubin (0.2-1.0) mg/dL 0.6 AST (15-37) U/L 43 H ALT (16-63) U/L 65 H Alkaline Phosphatase (46-116) U/L 73 Troponin I (<or=60) ng/L < 50 Cancelled NT-Pro-B Natriuret Pep (<300) pg/mL 223 Total Protein (6.4-8.2) g/dL 7.6 Albumin (3.4-5.0) g/dL 4.2 HPI General Mode of arrival: ambulatory. Date/Time Provider Initiated Documentation: 10/22/22 17:36. Limitations to Documentation: no limitations. Information obtained by: patient, RN notes reviewed and old records reviewed. HPI Narrative: 72-year-old male presents to the ER with a chief complaint of leg swelling which has been ongoing for the last month or more. He does have a history of diabetes and peripheral neuropathy. He also reports tingling in his feet and he is afraid that he may fall. He does have decreased dorsiflexion to his right foot. He does have sensation intact and movement. He does have a small scab noted to the dorsum of his right great toe which she reports has slow healing. No signs of cellulitis erythema or warmth noted. He does have 2+ pitting edema noted to his bilateral feet and ankles. He denies any chest pain or shortness of breath. He does endorse some diarrhea which is not new. Has a past medical history of paroxysmal atrial fibrillation, and ICD in situ, diabetes, depression, obstructive sleep apnea, diverticulosis gastritis, Related Data Home Medications Medication Instructions Recorded Confirmed pantoprazole 20 mg tablet,delayed 40 mg PO HS 12/06/13 07/31/22 release (Protonix) liraglutide 0.6 mg/0.1 mL (18 mg/3 1.8 mg SQ HS 01/19/17 07/31/22 mL) subcutaneous pen injector (Victoza 3-Ruddy) tramadol 50 mg tablet 50 mg PO PRN PRN 07/24/17 07/31/22 cholecalciferol (vitamin D3) 50 2,000 unit PO DAILY 06/13/19 07/31/22 mcg (2,000 unit) capsule (Vitamin D3) rivaroxaban 20 mg tablet (Xarelto) 20 mg PO DAILY #90 tabs 09/06/19 07/31/22 cyanocobalamin (vitamin B-12) 1,000 mcg PO DAILY 12/13/19 07/31/22 1,000 mcg tablet (Vitamin B-12) magnesium chloride 64 mg 128 mg PO BID #120 tabs 11/29/20 07/31/22 (magnesium chloride) tablet,delayed release (Mag 64) ferrous gluconate 324 mg (37.5 mg 324 mg PO DAILY 12/04/20 07/31/22 iron) tablet atorvastatin 80 mg tablet (Lipitor) 20 mg PO HS 12/19/20 07/31/22 lamotrigine 100 mg tablet 200 mg PO DAILY 10/03/21 07/31/22 polyethylene glycol 3350 17 gram 17 g PO DAILY 10/03/21 07/31/22 oral powder packet (Miralax) psyllium husk 0.52 gram capsule 0.52 g PO DAILY 10/03/21 07/31/22 (Fiber (psyllium husk)) mecobalamin (vitamin B12) 1,000 1,000 mcg PO DAILY 11/05/21 07/31/22 mcg chewable tablet lisinopril 2.5 mg tablet (Zestril) 2.5 mg PO QAM 11/20/21 07/31/22 metformin 1,000 mg tablet 1,000 mg PO BID@0800,1700 11/20/21 07/31/22 multivitamin 1 tab PO DAILY 11/20/21 07/31/22 sennosides 17.2 mg tablet 17.2 mg PO BID PRN constipation 11/24/21 07/31/22 #14 tabs amiodarone 200 mg tablet (Pacerone) 200 mg PO DAILY 04/01/22 07/31/22 clonazepam 1 mg tablet (Klonopin) 1 mg PO DAILY PRN 04/01/22 07/31/22 docusate sodium 50 mg capsule 50 mg PO DAILY PRN 04/01/22 07/31/22 triamcinolone acetonide 0.5 % 1 applic topical BID PRN 04/01/22 07/31/22 topical cream zolpidem 5 mg tablet 5 mg PO QHS PRN 04/01/22 07/31/22 cholecalciferol (vitamin D3) 50 50 mcg PO DAILY 07/10/22 07/31/22 mcg (2,000 unit) capsule multivitamin 1 cap PO DAILY 07/10/22 07/31/22 vitamin B complex 1 cap PO DAILY 07/10/22 07/31/22 nitroglycerin 0.4 mg sublingual 0.4 mg sublingual Q5M PRN chest 07/31/22 07/31/22 tablet (Nitrostat) pain #30 tabs metoprolol succinate 100 mg 100 mg PO BID #180 tabs 09/01/22 tablet,extended release 24 hr Previous Rx's Medication Instructions Recorded rivaroxaban 20 mg tablet (Xarelto) 20 mg PO DAILY #90 tabs 09/06/19 magnesium chloride 64 mg 128 mg PO BID #120 tabs 11/29/20 (magnesium chloride) tablet,delayed release (Mag 64) sennosides 17.2 mg tablet 17.2 mg PO BID PRN constipation 11/24/21 #14 tabs nitroglycerin 0.4 mg sublingual 0.4 mg sublingual Q5M PRN chest 07/31/22 tablet (Nitrostat) pain #30 tabs metoprolol succinate 100 mg 100 mg PO BID #180 tabs 09/01/22 tablet,extended release 24 hr Allergies Allergy/AdvReac Type Severity Reaction Status Date / Time adhesive tape Allergy Unknown rash Verified 10/22/22 17:32 latex AdvReac Intermediate trouble Verified 10/22/22 17:32 breathing/moving General Stated Complaint: [employer] SHAILESH: 3 Review of Systems All systems reviewed & are unremarkable except as noted in HPI and below Cardiovascular Cardiovascular: Denies chest pain, Reports pedal edema, Reports leg edema and Denies dyspnea Respiratory Respiratory: Denies dyspnea Integumentary/Breasts Comments: Slow healing wounds PFSH All Active Problems (Updated 10/22/22 @ 20:18 by Mary Ayala NP) Bilateral lower extremity edema (Acute) Essential tremor (Acute) Paroxysmal atrial fibrillation (Acute) ICD (implantable cardioverter-defibrillator), dual, in situ (Acute) Left shoulder pain (Acute) Left sided sciatica (Acute) Hypokinesia of left ventricle (Acute) EF 48% Multiple fractures of ribs of left side (Acute) 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 (Acute) Imbalance (Acute) Discharge planning issues (Acute) Hammer toe (Acute) Peripheral neuropathy (Chronic) Ventricular tachyarrhythmia (Chronic) s/p ICD 2014 Clinical depression (Chronic) Obstructive sleep apnea (Chronic) Atrial fibrillation (Chronic) Diverticulosis (Acute) Gastritis (Acute) Contusion of left knee, initial encounter (Acute 08/12/17) Disequilibrium (Chronic 11/10/16) Dysphagia (Acute) Contact dermatitis (Acute) Magnesium deficiency (Acute) Hypertension (Chronic) Diabetes (Chronic) Chronic pain (Chronic) Medical History Abrasion hip/leg Anal fissure CAD (coronary artery disease) Contusion of left chest wall Contusion of left elbow and forearm Contusion of left lung Degenerative disc disease Depression determined by examination Dermatitis Diabetic peripheral neuropathy DVT prophylaxis Esophageal ring Family history of nephrolithiasis Frequent falls GERD (gastroesophageal reflux disease) H/O ventricular tachycardia Hallucinations Hard stool Hematuria Hemothorax on left minimal Hiatal hernia Hyperlipidemia pt. states its a fissure near his coccyx Hypomagnesemia Iron deficiency anemia Ischemic cardiomyopathy Kidney stones Lumbar degenerative disc disease Medication monitoring encounter Pleural effusion Pneumothorax on left Pressure ulcer, buttock Rib pain on right side Steatohepatitis Type 2 diabetes mellitus Unspecified fracture of the lower end of right radius, subsequent encounter for closed fracture with routine healing (08/12/17) Surgical History History of cholecystectomy History of colonoscopy 12/17/18 History of coronary artery stent placement History of esophagogastroduodenoscopy (EGD) 12/17/18 History of permanent cardiac pacemaker placement with defib Family History Father Heart disease Mother Heart disease Brother Alcoholism Social History Smoking/Tobacco Use Status: Current every day Tobacco Type: smokeless tobacco Counseling given: patient declined Smoking risk assessment performed?: Yes Alcohol Intake: former Drug use: Never Substance use type: does not use Details: Pt states he vapes daily current occupation: Retired What type of physical activity do you participate in: bicycling Frequency: 3-4 times per week Do you feel safe at home: Yes Do you feel safe in your relationship?: Yes Exam Narrative Exam Narrative: Constitutional: Alert and oriented x3. Appears stated age. Normal body habitus. Head: Normocephalic, no trauma. Eyes: Pupils PERRL, Red reflex noted, EOM's intact. Eyelids symmetrical without lesions, discharge, or swelling. ENT: Bilateral TM's WNL, External ear normal to inspection, no mastoid TTP, swelling, or erythema, Nasal turbinates WNL, no nasal discharge. Normal dentition, Posterior pharynx WNL, no exudate. Chest: RRR, Normal S1, S2, distal pulses intact. Resp: Lungs clear to auscultation bilaterally, no wheezes, rales, or rhonchi. Abdomen: Soft, non-distended, Normoactive bowel sounds all 4 quads. Musculoskeletal: 5/5 strength to all four extremities. Skin: No suspicious rashes or lesions. Capillary refill less than 2 sec. Neurologic: Cranial nerves II-XII intact. Alert and oriented x 3. Motor: No deficits noted. Sensory: Intact bilaterally all 4 extremities. Reflexes: DTR's intact bilaterally.. Hematologic/Lymphatic: No ecchymosis, no lymphadenopathy. Course Vital Signs Vital signs: Vital Signs Temperature 37.0 C 10/22/22 17:24 Pulse 64 10/22/22 17:24 Respiratory Rate 20 10/22/22 17:24 Blood Pressure 157/71 H 10/22/22 17:24 Pulse Oximetry 99 10/22/22 17:24 Temperature 37.0 C 10/22/22 17:24 Temperature Source Oral 10/22/22 17:24 Pulse 64 10/22/22 17:24 Respiratory Rate 20 10/22/22 17:24 Respiratory Effort Normal 10/22/22 17:33 Blood Pressure 157/71 H 10/22/22 17:24 Blood Pressure Position Sitting 10/22/22 17:24 Pulse Oximetry 99 10/22/22 17:24 Oxygen Delivery Method Room Air 10/22/22 17:24 Oxygen Flow Rate 0 10/22/22 17:24
[2022-10-22 19:30] LABS: Abs Immature Grans 0.03 10^3/uL (0.0-0.06); Absolute Basophil Count 0.05 10^3/uL (0.0-0.2); Absolute Eosinophil Count 0.44 10^3/uL (0.0-0.7); Absolute Lymphocyte Count 2.12 10^3/uL (1.2-3.4); Absolute Monocyte Count 0.44 10^3/uL (0.1-0.8); Absolute Neutrophil Count 3.52 10^3/uL (1.2-6.7); Basophils % 0.8; Eosinophils % 6.7; HCT 43.2 % (40.0-50.0); HGB 14.4 g/dL (13.5-17.5); Immature Grans % 0.5; Lymphocytes % 32.1; MCHC 33.3 % (32.0-36.0); MCV 93 fL (80-95); MPV 9.1 fL (8.0-11.0); Monocytes % 6.7; Neutrophils % 53.2; Platelet Count 200 10^3/uL (130-400); RBC 4.65 10^6/uL (4.36-5.78); RDW 13.7 % (11.8-14.1); RDW-SD 46.7 fL
--- NOTE | 2022-10-22 19:30 | NUR.NOTE ---
Nursing Note: Coordinator Of Placement assumed care at 1855 when patient was brought from [facility] and was assigned to this nurses room #8
--- NOTE | 2022-10-22 19:33 | DI.VRAD_ITS ---
PROCEDURE INFORMATION: Exam: XR Chest Exam date and time: 10/22/2022 7:24 PM Age: 72 years old Clinical indication: Other: Swelling; Prior surgery; Surgery date: 6+ months; Surgery type: Pacemaker and rib surgery, unknown date TECHNIQUE: Imaging protocol: Radiologic exam of the chest. Views: 2 views. COMPARISON: CR XR CHEST 2V PA LATERAL 07/10/2022 6:25 PM FINDINGS: Grossly stable cardiac pacemaker leads Lungs: Unremarkable. No consolidation. Pleural spaces: Unremarkable. No pleural effusion. No pneumothorax. Heart/Mediastinum: Unremarkable. No cardiomegaly. Bones/joints: Grossly stable IMPRESSION: No acute findings. Dictated and Authenticated by: Raji Quinones MD. Ordering:VERONICA Hernandez MD
[2022-10-22 19:45] LABS: ALT 65 U/L (16-63); AST 43 U/L (15-37); Albumin 4.2 g/dL (3.4-5.0); Alkaline Phosphatase 73 U/L (46-116); Anion Gap 9.8 mmol/L (3-11); BUN 14 mg/dL (7-18); Bilirubin, Total 0.6 mg/dL (0.2-1.0); CO2 29.2 mmol/L (21.0-32.0); CREATININE 0.9 mg/dL (0.70-1.30); Calcium 9.5 mg/dL (8.5-10.1); Chloride 105 mmol/L (98-107); Estimated GFR 90.18 (mL/min/1.73m2); Glucose 126 mg/dL (74-106); Magnesium 1.8 mg/dL (1.8-2.4); NT-proBNP 223 pg/mL (<300); Potassium 4.5 mmol/L (3.5-5.1); Sodium 144 mmol/L (136-145); Total Protein 7.6 g/dL (6.4-8.2); Troponin I < 50 ng/L (<or=60)
--- NOTE | 2022-10-23 01:29 | NUR.NOTE ---
[facility] requisition faxed to [facility] for lower extremity study. Patient advided to call [facility] scheduling to make appt rodrigo.Nursing Note:
== END 2022-10-22 20:34 | disposition home or self-care (01) ==
PROVIDERS: Emergency Provider Registered Nurse Emergency; PCP Family Medicine
DX: R60.0 Localized edema (principal); E11.9 Type 2 diabetes mellitus without complications
CPT/HCPCS: 36416; 80053; 82962; 93005; 99284; 71046; 83735; 83880; 84484; 85025; 93010; 99283

== ENCOUNTER 2022-10-28 01:16 | Outpatient (CLI) | payer OTHER, SELFPAY ==
--- NOTE | 2022-10-28 | DI.US_ITS ---
Exam(s) US EXTREMITY VENOUS BI EXAM: US EXTREMITY VENOUS BI CLINICAL HISTORY: BILAT LOW EXT SWELLING, R22.43 TECHNIQUE: Grayscale, color, and doppler imaging of the deep venous system of both lower extremities was performed. COMPARISON: US POCUS EXAM from 11/21/2021 FINDINGS: There is no evidence of intraluminal thrombus and there is normal compression and augmentation demons trated within the common femoral veins, femoral veins, and popliteal veins of both lower extremities. In the calves the interrogated veins also exhibit normal compression/ augmentation properties. The greater saphenous veins also appear patent as do the saphenofemoral junctions bilaterally.. IMPRESSION: 1. No ultrasound evidence of DVT in either lower extremity. DATA REPOSITORY:
== END 2022-10-28 01:36 ==
LOC: DI 01:16
PROVIDERS: PCP Family Medicine; Visit Provider Registered Nurse Emergency
DX: R22.43 Localized swelling, mass and lump, lower limb, bilateral (principal)
CPT/HCPCS: 93970

== ENCOUNTER 2022-11-04 01:00 | Outpatient (CLI) | payer OTHER, SELFPAY ==
--- NOTE | 2022-11-04 07:45 | DI.US_ITS ---
Exam(s) US RENAL EXAM: US RENAL CLINICAL HISTORY: monitor left lower pole stone,n20.0. TECHNIQUE: Henry scale, color and spectral Doppler were used. COMPARISON: US US RENAL from 11/04/[address] CHEST PE CTA from 07/10/2022 FINDINGS: Renal size in cm: Right: 10.9. Left: 11.1. Echogenicity: Normal. Hydronephrosis: No. Cyst or mass: Multiple left renal cysts. These appears stable. The largest measures 4 x 3 x 4.4 cm. No follow-up is recommended. Nephrolithiasis: There is a 6 mm echogenic nonobstructing stone in the lower pole of the left kidney. Other findings: None. Bladder:Normal. Ureteral jets: Right: Visualized and unremarkable. Left: Visualized and unremarkable. Prevoid vol:88 cc Postvoid vol:12 cc Prostate: 16 cc Renal color flow: Symmetric and within normal limits. IMPRESSION: Stable 6 mm lower pole left renal calculus. DATA REPOSITORY:
== END 2022-11-04 01:20 ==
LOC: DI 01:02
PROVIDERS: PCP Family Medicine; Visit Provider Urology
DX: N20.0 Calculus of kidney (principal)
CPT/HCPCS: 76770

== ENCOUNTER → 2022-11-06 14:25 | Outpatient (BNVA) | payer OTHER, SELFPAY | PROVIDERS: PCP Family Medicine; Visit Provider Urology | DX: I10 Essential (primary) hypertension (principal); E11.9 Type 2 diabetes mellitus without complications; N20.0 Calculus of kidney | CPT/HCPCS: 99213 ==

== ENCOUNTER → 2022-12-03 13:23 | Outpatient (BNVA) | payer OTHER, SELFPAY | PROVIDERS: PCP Family Medicine; Visit Provider Physician Assistant | DX: Z45.02 Encounter for adjustment and management of automatic implantable cardiac defibrillator (principal); I48.0 Paroxysmal atrial fibrillation; Z79.899 Other long term (current) drug therapy; I25.5 Ischemic cardiomyopathy | CPT/HCPCS: 93282; 99212 ==

== ENCOUNTER → 2022-12-11 14:49 | Outpatient (BNVA) | payer OTHER, SELFPAY | PROVIDERS: PCP Family Medicine; Referring Provider Family Medicine; Visit Provider Psychiatry & Neurology Neurology | DX: E11.42 Type 2 diabetes mellitus with diabetic polyneuropathy (principal); R26.89 Other abnormalities of gait and mobility; R42 Dizziness and giddiness; R25.1 Tremor, unspecified; I10 Essential (primary) hypertension | CPT/HCPCS: 99214 ==

== ENCOUNTER → 2022-12-26 00:43 | Outpatient (CLI) | payer OTHER, SELFPAY ==
--- NOTE | 2022-12-26 07:45 | DI.CT_ITS ---
Exam(s) CT HEAD WO EXAM: CT HEAD WO CLINICAL HISTORY: acute onset vertigo 1 mo ago,? stroke, has pm,r42. TECHNIQUE: Imaging Protocol: Axial computed tomography images with coronal and sagittal reformatted images were created and reviewed COMPARISON: CT CT HEAD CERVICAL SPINE WO from 11/19/2021 FINDINGS: Ventricles and Extra axial spaces: Normal in size and morphology for the patient's age. Hemorrhage: None. Cerebral parenchyma: No mass effect. Subtle areas of decreased attenuation are seen in the white mat ter likely reflecting small vessel ischemic disease. Midline shift: None. Brainstem/Cerebellum: Normal. Calvarium: Normal. Visualized Paranasal sinuses/Mastoids: Clear. Soft Tissues: Unremarkable. IMPRESSION: No acute intracranial process. An MRI of the brain may be considered for further evaluation. RADIATION DOSE DELIVERED: 900.89mGy.cm Total DLP DATA REPOSITORY: All CT scans at this facility are submitted to the National Radiology Data Registry (NRDR) Dose Index Registry (DIR) with the [employer] (ACR). RADIATION OPTIMIZATION: All CT scans at this facility use at least one of these dose optimization te chniques: automated exposure control; mA and/or kV adjustment per patient size (includes targeted exa ms where dose is matched to clinical indication); or iterative reconstruction.
== END ==
PROVIDERS: PCP Family Medicine; Visit Provider Psychiatry & Neurology Neurology
DX: R42 Dizziness and giddiness (principal)
CPT/HCPCS: 70450

== ENCOUNTER 2022-12-26 17:05 | Outpatient (CLI) | payer OTHER, SELFPAY ==
[2022-12-26 16:07] LABS: Ammonia 16 umol/L (11-32)
[2022-12-26 16:46] LABS: Vitamin B12 1828 pg/mL (193-986)
[2022-12-29 13:18] LABS: Albumin 57.7 % (55.8-66.1); Albumin g/dL 3.8 g/dL (3.6-5.2); Total Protein 6.6 g/dL (6.3-8.2)
== END 2022-12-26 17:06 | disposition home or self-care (01) ==
LOC: LBO 17:06
PROVIDERS: PCP Family Medicine; Visit Provider Psychiatry & Neurology Neurology
DX: G62.9 Polyneuropathy, unspecified (principal); R26.89 Other abnormalities of gait and mobility
CPT/HCPCS: 36415; 82140; 82607; 84165

== ENCOUNTER → 2022-12-30 13:35 | Outpatient (BNVA) | payer OTHER, SELFPAY | PROVIDERS: PCP Family Medicine; Visit Provider Internal Medicine Cardiovascular Disease | DX: I48.0 Paroxysmal atrial fibrillation (principal); I25.10 Atherosclerotic heart disease of native coronary artery without angina pectoris; I25.5 Ischemic cardiomyopathy; Z95.810 Presence of automatic (implantable) cardiac defibrillator; I10 Essential (primary) hypertension; E11.9 Type 2 diabetes mellitus without complications | CPT/HCPCS: 99214 ==

== ENCOUNTER 2023-01-21 15:26 | Outpatient (REF) | payer OTHER, SELFPAY ==
[2023-01-21 19:27] LABS: Abs Immature Grans 0.03 10^3/uL (0.0-0.06); Absolute Basophil Count 0.06 10^3/uL (0.0-0.2); Absolute Eosinophil Count 0.56 10^3/uL (0.0-0.7); Absolute Lymphocyte Count 2.08 10^3/uL (1.2-3.4); Absolute Monocyte Count 0.51 10^3/uL (0.1-0.8); Absolute Neutrophil Count 4.52 10^3/uL (1.2-6.7); Basophils % 0.8; Eosinophils % 7.2; HCT 46.3 % (40.0-50.0); Immature Grans % 0.4; Lymphocytes % 26.8; MCH 30.6 pg (27.0-33.0); MCHC 32.4 % (32.0-36.0); MCV 95 fL (80-95); MPV 9.9 fL (8.0-11.0); Monocytes % 6.6; Neutrophils % 58.2; Platelet Count 212 10^3/uL (130-400); RDW 13.5 % (11.8-14.1); RDW-SD 47.1 fL; WBC 7.76 10^3/uL (4.4-10.8)
[2023-01-21 19:57] LABS: ALT 56 U/L (16-63); AST 55 U/L (15-37); Albumin 4.1 g/dL (3.4-5.0); Alkaline Phosphatase 73 U/L (46-116); Anion Gap 12.5 mmol/L (3-11); BUN 19 mg/dL (7-18); Bilirubin, Total 0.6 mg/dL (0.2-1.0); CO2 23.5 mmol/L (21.0-32.0); Calcium 9.4 mg/dL (8.5-10.1); Chloride 103 mmol/L (98-107); Estimated GFR 79.47 (mL/min/1.73m2); Glucose 157 mg/dL (74-106); Magnesium 1.9 mg/dL (1.8-2.4); Potassium 4.3 mmol/L (3.5-5.1); Sodium 139 mmol/L (136-145); Total Protein 7.4 g/dL (6.4-8.2)
== END 2023-01-21 15:27 | disposition home or self-care (01) ==
LOC: NCHCN 15:26
PROVIDERS: PCP Family Medicine; Visit Provider Family Medicine
DX: E11.9 Type 2 diabetes mellitus without complications (principal); E61.2 Magnesium deficiency; R42 Dizziness and giddiness; K75.81 Nonalcoholic steatohepatitis (NASH); D64.9 Anemia, unspecified
CPT/HCPCS: 80053; 83036; 83735; 85025

== ENCOUNTER 2023-02-18 16:38 | Emergency (ER) | payer OTHER, SELFPAY ==
[2023-02-18] VITALS (43 sets, daily range): BP systolic 110–161; BP diastolic 53–69; PULSE 59–85; RESP 9–20; TEMP 36.1; O2SAT 95–100
--- NOTE | 2023-02-18 16:30 | RT.EKG_ITS ---
APPROVED REPORT Exam: Resting ECG Reason for Exam: weakness' Patient Location: E HR:63 bpm ECG Measurements Heart Rate 63 AXIS MA 84 P 0 QRSd 135 QRS -78 QT 485 T 256 QTc 496 Conclusion Sinus rhythm...normal P axis, V-rate 60- 99 Inferior infarct, age indeterminate...Q>35mS, T neg, II III aVF Anterior infarct, old...Q >40mS, abnormal ST-T, V2-V5 Nonspecific T abnormalities, lateral leads...T <-0.10mV, I aVL V5 V6 NSR at 63 Left [place] Left Bundle Branch Block Nonspecific ST-T changes There are no significant changes compared to prior EKG performed on 10/22/2022 at 17:28.
--- NOTE | 2023-02-18 17:03 | W.ED.GENAD ---
Discharge Plan Disposition Patient Disposition: Home Condition: Stable Discharge Details Clinical Impression: Dehydration, mild, Constipation Primary Care Provider: Dewayne Carrington ED Provider: Stef Pacheco Home Meds and New Rx's Prescriptions: Continued clonazepam [Klonopin] 1 mg tablet 1 mg PO DAILY PRN amiodarone [Pacerone] 200 mg tablet 200 mg PO DAILY nitroglycerin [Nitrostat] 0.4 mg tablet, sublingual 0.4 mg sublingual Q5M PRN (Reason: chest pain) Qty: 30 3RF Rx Instructions: do not exceed 3 doses per episode furosemide 20 mg tablet 20 mg PO DAILY meclizine 25 mg tablet 25 mg PO DAILY PRN Victoza 3-Ruddy 0.6 mg/0.1 mL (18 mg/3 mL) pen injector 1.8 mg subcut DAILY metoprolol succinate 100 mg tablet extended release 24 hr 50 mg PO DAILY cyanocobalamin (vitamin B-12) [Vitamin B-12] 1,000 mcg tablet 1,000 mcg PO DAILY Patient Comments: not taking mecobalamin (vitamin B12) 1,000 mcg tablet,chewable 1,000 mcg PO DAILY Patient Comments: not taking docusate sodium 50 mg capsule 50 mg PO DAILY PRN triamcinolone acetonide 0.5 % cream 1 applic topical BID PRN zolpidem 5 mg tablet 5 mg PO QHS PRN escitalopram oxalate 10 mg tablet 10 mg PO DAILY gabapentin 300 mg capsule 300 mg PO TID cholecalciferol (vitamin D3) [Vitamin D3] 50 mcg (2,000 unit) capsule 2,000 unit PO DAILY Xarelto 20 mg tablet 20 mg PO DAILY Qty: 90 3RF psyllium husk [Fiber (psyllium husk)] 0.52 gram capsule 0.52 g PO DAILY polyethylene glycol 3350 [Miralax] 17 gram powder in packet 17 g PO DAILY sennosides 17.2 mg tablet 17.2 mg PO BID PRN (Reason: constipation) Qty: 14 0RF pantoprazole [Protonix] 20 MG tablet,delayed release (DR/EC) 40 mg PO HS Patient Comments: 4/5/18-40mg PO daily per pt Victoza 3-Ruddy 0.6 MG/0.1 ML pen injector 1.8 mg SQ HS tramadol 50 MG tablet 50 mg PO PRN PRN Mag 64 64 mg Tablet,Delayed Release (Dr/Ec) 128 mg PO BID Qty: 120 0RF atorvastatin [Lipitor] 80 mg tablet 20 mg PO HS Patient Comments: TAKE 1 TABLET BY MOUTH DAILY AT BEDTIME metformin 1,000 mg tablet 1,000 mg PO BID@0800,1700 lisinopril [Zestril] 2.5 mg tablet 2.5 mg PO QAM Patient Comments: TAKE 1 TABLET BY MOUTH EVERY DAY multivitamin Tablet 1 tab PO DAILY Discharge Instructions Instructions: Polyethylene Glycol 3350/Electrolytes (By mouth), Constipation (ED), Dehydration (ED) Additional Instructions: You were seen in the emergency department for your generalized increasing vertigo in the setting of chronic vertigo, please follow-up with your neurologist for this complaint. You also had some complaints of no bowel movement in 5 days with some chest and abdominal pain, we performed CT scans which showed no posterior stroke, no vertebral dissection as cause of your vertigo, there is no abnormalities of your aorta and you do not have a blockage to the vessels supplying your intestines. You had an initial lactate of 3.5 which is significant for infection versus dehydration but this normalized with IV fluids meaning you do not have a significant infection. I do not suspect GI bleeding your hemoglobin is stable and within normal limits. Your CAT scan does show constipation. We are sending you home with the GoLytely solution to aid in your constipation relief. Please drink a glass of the solution every 10 to 15 minutes until you achieve a bowel movement for at least 2 hours. You are going to need to drink lots of water as this medicine will pull water from your system and you are already dehydrated so please stay well-hydrated in the coming days. Please follow-up with your primary care provider for other complaints and return to the emergency department for any worsening weakness, fevers, nausea vomiting, black bloody stools, severe vertigo with altered mental status or slurred speech or confusion Referrals: Stef Pacheco PA [Emergency Provider] - Dewayne Carrington [Primary Care Provider] - Medical Decision Making This dictation utilizes [id number] dictation software and may contain unedited grammatical errors. 72 y/o M with significant comorbidities - CAD with stents, atrial fibrillation controlled with long-term amiodarone use, t2DM, gait abnormalities, and chronic vertigo, presents to ED today with a chief complaint of transient palpitations in his chest substernal and central abdomen with some discomfort, increasing vertigo. Onset of weeks to months and characteristics include transient pains in his chest with palpitations, that also occur in his central abdomen. Incidentally he also notes no bowel movement in the past 5 days. Patient has relevant history of CAD, t2DM, essential tremor, vertigo, peripheral neuropathy, HTN, implanted AICD, hiatal hernia. Family and social history: [ ]. Pertinent exam findings / vital signs include [ ]. Differential / pathologies of concern include AAA, Mesenteric Ischemia, Vertebral Dissection, Posterior CVA, Palpitations, ACS, Rhabdomyolysis, Type II Lactic Acidosis, Gastritis/Hiatal Hernia. Diagnostic studies of: -CBC, CMP, Lipase, Lactate, CK, Trop I, D-dimer. CTA neck for increasing vertigo for possible vertebral dissection, w CT Brain wo Contrast due to weeks to months onset, would show any stroke that may have occurred over this timeframe. -initial lactate 3.5> concern occlusive pathology based on symptoms, CTA to evaluate chest and abdominal vasculature,Rpt lactate 1.4, likely dehydration -CTAs show no acute pathology, no vertebral dissection, no ischemia with months onset to CT head wo, no aortic dissection, no SMA occlusion, does show significant constipation -CBC no leukocytosis, do not suspect sepsis, HgB 15.1 - do not suspect GI bleeding -elevated BUN, suspect dehydration -trop negative with reliable onset -BNP WNL -lipase WNL -EKG no stemi, no ischemic changes Interventions of: -IV fluids. GoLytely to-go home with. ED Course: No acute events throughout stay, no acute decompensations or tacky arrhythmias or syncopal events or chest. Findings not consistent with acute coronary syndrome, bowel ischemia, AAA, vertebral dissection, severe infection, GI bleeding, arrhythmia, stroke, rhabdomyolysis. Patient's abdominal pressure is likely due to his constipation, he has been sedentary lately and endorses not drinking enough fluids which is the likely source of his lactate elevation which improved with a recheck after IV fluids. Disposition of Dehydration, Constipation. Assessment/Plan: Counseled the patient on likely dehydration and his constipation, he has tried MiraLAX at home so I did provide him with GoLytely to go home with, he is familiar with this and has had a colonoscopy before. I did advise him to follow-up with his cardiology team and neurology team for any worsening chronic conditions. His lactate normalized from 3.5-1.4, with only IV fluids as intervention likely due to dehydration. Patient verbalized understanding of the plan and return to ED criteria and engaged in shared decision making. Medical Records Medical records reviewed: Yes I reviewed the patient's medical records. Imaging Data Radiologic Study: Attestation: I personally reviewed and interpreted this imaging study as follows: Imaging: CT Scan Radiologist's impression: vRad read CT head without contrast no acute intracranial findings. vRad read CTA of the neck shows no acute arterial pathology with patent carotids and vertebrals with multiple thyroid nodules recommending surveillance. vRad read of the CT of the chest abdomen pelvis shows no aortic abnormality chronic spinal findings and significant stool burden, calcification of coronary arteries with prior stenting. HPI General Date/Time Provider Initiated Documentation: 02/18/23 16:41. HPI Narrative: 72 year-old male presents to ED today by POV/ambulating with cane, baseline, with a chief complaint of worsening acute on chronic vertigo (has seen Neuro for vertigo), blurry vision (known cataract), chest discomfort/palpitations that radiates down through the central abdomen with known CAD and stents and known hiatal hernia, atrial fibrillation being treated with amiodarone, as well as no BM for 5 days with onset for weeks to months, worse for multiple weeks. Patient states he has had hypotension, and was recently taken off metoprolol. Patient endorses he has been more sedentary than normal lately. Quality described as not severe pain, but does feel very off, no radiation to syncope, shortness of breath, severe chest pain, floaters in vision, fever, recent URI, focal weakness, severe headaches, dysuria. Severity is described as mild. Palliating factors include nothing specific attempted. Provoking factors include nothing specific. Events leading up to the incident/Associated Symptoms: Patient states his last EHCO/stress was at least as far back as 2018, sees Cardiology here, sees Neurology here, states his gait has been attributed to diabetic neuropathy. Patient is anticoagulated on Xarelto. Related Data Home Medications Medication Instructions Recorded Confirmed pantoprazole 20 mg tablet,delayed 40 mg PO HS 12/06/13 02/18/23 release (Protonix) liraglutide 0.6 mg/0.1 mL (18 mg/3 1.8 mg SQ HS 01/19/17 02/18/23 mL) subcutaneous pen injector (Victoza 3-Ruddy) tramadol 50 mg tablet 50 mg PO PRN PRN 07/24/17 02/18/23 cholecalciferol (vitamin D3) 50 2,000 unit PO DAILY 06/13/19 02/18/23 mcg (2,000 unit) capsule (Vitamin D3) rivaroxaban 20 mg tablet (Xarelto) 20 mg PO DAILY #90 tabs 09/06/19 02/18/23 cyanocobalamin (vitamin B-12) 1,000 mcg PO DAILY 12/13/19 02/18/23 1,000 mcg tablet (Vitamin B-12) magnesium chloride 64 mg 128 mg (2 x 64 mg) PO BID #120 tabs 11/29/20 02/18/23 (magnesium chloride) tablet,delayed release (Mag 64) atorvastatin 80 mg tablet (Lipitor) 20 mg PO HS 12/19/20 02/18/23 polyethylene glycol 3350 17 gram 17 g PO DAILY 10/03/21 02/18/23 oral powder packet (Miralax) psyllium husk 0.52 gram capsule 0.52 g PO DAILY 10/03/21 02/18/23 (Fiber (psyllium husk)) mecobalamin (vitamin B12) 1,000 1,000 mcg PO DAILY 11/05/21 02/18/23 mcg chewable tablet lisinopril 2.5 mg tablet (Zestril) 2.5 mg PO QAM 11/20/21 02/18/23 metformin 1,000 mg tablet 1,000 mg PO BID@0800,1700 11/20/21 02/18/23 multivitamin 1 tab PO DAILY 11/20/21 02/18/23 sennosides 17.2 mg tablet 17.2 mg PO BID PRN constipation 11/24/21 02/18/23 #14 tabs amiodarone 200 mg tablet (Pacerone) 200 mg PO DAILY 04/01/22 02/18/23 clonazepam 1 mg tablet (Klonopin) 1 mg PO DAILY PRN 04/01/22 02/18/23 docusate sodium 50 mg capsule 50 mg PO DAILY PRN 04/01/22 02/18/23 triamcinolone acetonide 0.5 % 1 applic topical BID PRN 04/01/22 02/18/23 topical cream zolpidem 5 mg tablet 5 mg PO QHS PRN 04/01/22 02/18/23 nitroglycerin 0.4 mg sublingual 0.4 mg sublingual Q5M PRN chest 07/31/22 02/18/23 tablet (Nitrostat) pain #30 tabs escitalopram oxalate 10 mg tablet 10 mg PO DAILY 12/11/22 02/18/23 gabapentin 300 mg capsule 300 mg PO TID 12/11/22 02/18/23 furosemide 20 mg tablet 20 mg PO DAILY 12/16/22 02/18/23 liraglutide 0.6 mg/0.1 mL (18 mg/3 1.8 mg subcut DAILY 12/16/22 02/18/23 mL) subcutaneous pen injector (Victoza 3-Ruddy) meclizine 25 mg tablet 25 mg PO DAILY PRN 12/16/22 02/18/23 metoprolol succinate 100 mg 50 mg PO DAILY 02/18/23 02/18/23 tablet,extended release 24 hr Previous Rx's Medication Instructions Recorded rivaroxaban 20 mg tablet (Xarelto) 20 mg PO DAILY #90 tabs 09/06/19 magnesium chloride 64 mg 128 mg (2 x 64 mg) PO BID #120 tabs 11/29/20 (magnesium chloride) tablet,delayed release (Mag 64) sennosides 17.2 mg tablet 17.2 mg PO BID PRN constipation 11/24/21 #14 tabs nitroglycerin 0.4 mg sublingual 0.4 mg sublingual Q5M PRN chest 07/31/22 tablet (Nitrostat) pain #30 tabs Allergies Allergy/AdvReac Type Severity Reaction Status Date / Time adhesive tape Allergy Unknown rash Verified 02/18/23 16:43 latex AdvReac Intermediate trouble Verified 02/18/23 16:43 breathing/moving General Stated Complaint: [facility] SHAILESH: 3 PFSH All Active Problems (Updated 02/18/23 @ 21:29 by MAXIMO Kelly) Constipation (Acute) Dehydration, mild (Acute) Bilateral sensorineural hearing loss (Acute) Change in voice (Acute) Vertigo (Acute) Essential tremor (Acute) Paroxysmal atrial fibrillation (Acute) ICD (implantable cardioverter-defibrillator), dual, in situ (Acute) Left shoulder pain (Acute) Left sided sciatica (Acute) Hypokinesia of left ventricle (Acute) EF 48% Multiple fractures of ribs of left side (Acute) Medication management (Acute) nursing home current use of 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 medical therapy (Acute) Imbalance (Acute) Discharge planning issues (Acute) Hammer toe (Acute) Peripheral neuropathy (Chronic) Ventricular tachyarrhythmia (Chronic) s/p ICD 2013 Clinical depression (Chronic) Obstructive sleep apnea (Chronic) Diverticulosis (Acute) Gastritis (Acute) Contusion of left knee, initial encounter (Acute 08/12/17) Disequilibrium (Chronic 11/10/16) Dysphagia (Acute) Contact dermatitis (Acute) Magnesium deficiency (Acute) Hypertension (Chronic) Diabetes (Chronic) Chronic pain (Chronic) Medical History Abrasion hip/leg Anal fissure Atrial fibrillation CAD (coronary artery disease) Conjunctivitis Constipation Contusion of left chest wall Contusion of left elbow and forearm Contusion of left lung COVID-19 Degenerative disc disease Degenerative tear of triangular fibrocartilage complex (TFCC) of wrist Depression determined by examination Dermatitis Diabetic peripheral neuropathy DVT prophylaxis Esophageal ring Family history of nephrolithiasis Foot drop, right Frequent falls GERD (gastroesophageal reflux disease) H/O ventricular tachycardia Hallucinations Hard stool Hematuria Hemothorax on left minimal Hiatal hernia History of nephrolithiasis History of paresthesia Hoarseness Hyperlipidemia pt. states its a fissure near his coccyx Hypomagnesemia Iron deficiency anemia Ischemic cardiomyopathy Kidney stones Leg edema Lumbar degenerative disc disease Medication monitoring encounter Pleural effusion Pneumothorax on left Pressure sore Pressure ulcer, buttock Rib pain on right side Steatohepatitis Tremor Type 2 diabetes mellitus Unspecified fracture of the lower end of right radius, subsequent encounter for closed fracture with routine healing (08/12/17) Surgical History History of cholecystectomy History of colonoscopy 12/17/18 History of coronary artery stent placement History of esophagogastroduodenoscopy (EGD) 12/17/18 History of permanent cardiac pacemaker placement with defib Family History Father Heart disease Mother Heart disease Brother Alcoholism Social History Smoking/Tobacco Use Status: Current every day Tobacco Type: smokeless tobacco Counseling given: patient declined Smoking risk assessment performed?: Yes Alcohol Intake: former Drug use: Never Substance use type: does not use Details: Pt states he vapes daily current occupation: Retired What type of physical activity do you participate in: bicycling Frequency: 3-4 times per week Do you feel safe at home: Yes Do you feel safe in your relationship?: Yes Exam Narrative Exam Narrative: GENERAL APPEARANCE: Well-nourished, non-toxic, awake and alert, atraumatic, no acute distress. SKIN: Warm, pink, dry, intact, without rashes/lesions/ulcerations. HEAD: Normocephalic, atraumatic, normal hair distribution for gender/age. EYES: Pupils PERRLA, EOMs intact without nystagmus, normal conjunctiva, no exudates on lids/lashes, vision grossly normal. ENT: Nares patent, no circumoral cyanosis, no facial swelling NECK: Supple, trachea midline, painless cervical ROM. LUNGS/CHEST: Lungs CTA bilaterally - no rhonchi/rales/wheezes diffusely, non-labored respirations, increased A/P diameter, symmetrical expansion, no chest wall deformity HEART (CV/PV): Regular rate and rhythm without murmur, no peripheral edema, no JVD, no carotid bruit, no abdominal bruit, radial pulses 2+ bilaterally. ABDOMEN: Normoactive bowel sounds, soft, non-distended, no guarding, no pulsatile masses. MSK: Normal ROM, no swelling/deformity to bilateral UEs or LEs, moving all extremities without weakness, no cyanosis, spine midline without tenderness, normal curvature. NEURO: Mental Status AAOx4 - alert to person, place, time, events No facial droop, no forehead involvement, no dysmetria with [id number] Motor: No focal weakness - strength 5/5 in bilateral UEs and LEs, proximal and distal, symmetric. Sensory: sensation intact to light touch globally. Gait normal: patient shuffling, notes chronicity PSYCH: euthymic, cooperative, pleasant, appropriate speech Course Vital Signs Vital signs: Vital Signs Temperature 36.1 C L 02/18/23 16:43 Pulse 63 02/18/23 16:43 Respiratory Rate 20 02/18/23 16:43 Blood Pressure 158/65 H 02/18/23 16:43 Pulse Oximetry 99 02/18/23 16:43 Temperature 36.1 C L 02/18/23 16:43 Temperature Source Oral 02/18/23 16:43 Pulse 62 02/18/23 16:57 Pulse 64 02/18/23 16:57 Respiratory Rate 12 02/18/23 16:57 Respiratory Effort Normal, Non-Labored 02/18/23 16:53 Respiratory Depth Normal 02/18/23 16:53 Respiratory Pattern Normal 02/18/23 16:53 Blood Pressure 145/63 H 02/18/23 16:57 Blood Pressure Mean 90 02/18/23 16:57 Blood Pressure Position Sitting 02/18/23 16:43 Pulse Oximetry 100 02/18/23 16:57 Oxygen Delivery Method Room Air 02/18/23 16:43 Oxygen Flow Rate 0 02/18/23 16:43 Pain Level 2 02/18/23 16:43
[2023-02-18 17:14] LABS: Abs Immature Grans 0.05 10^3/uL (0.0-0.06); Absolute Basophil Count 0.07 10^3/uL (0.0-0.2); Absolute Eosinophil Count 0.62 10^3/uL (0.0-0.7); Absolute Lymphocyte Count 2.67 10^3/uL (1.2-3.4); Absolute Monocyte Count 0.56 10^3/uL (0.1-0.8); Absolute Neutrophil Count 4.91 10^3/uL (1.2-6.7); Basophils % 0.8; HCT 46.8 % (40.0-50.0); HGB 15.1 g/dL (13.5-17.5); Immature Grans % 0.6; Lactate 3.5 mmol/L (0.6-1.4); Lymphocytes % 30.1; MCH 30.3 pg (27.0-33.0); MCHC 32.3 % (32.0-36.0); MCV 94 fL (80-95); MPV 9.2 fL (8.0-11.0); Monocytes % 6.3; Neutrophils % 55.2; Platelet Count 213 10^3/uL (130-400); RBC 4.98 10^6/uL (4.36-5.78); RDW 13.3 % (11.8-14.1); RDW-SD 46.4 fL; WBC 8.88 10^3/uL (4.4-10.8)
--- NOTE | 2023-02-18 17:30 | DI.CT_ITS ---
Exam(s) CT THORAX ABD/PEL CTA EXAM: CT THORAX ABD/PEL CTA CLINICAL HISTORY: abdominal pain, chest pain. TECHNIQUE: Imaging Protocol: Axial CT angiography was performed with multi-slice acquisition and m ulti-planar and/or 3D reconstructions. CONTRAST MATERIAL: Intravenous: Omnipaque 350 contrast volume:100 mL Oral: No COMPARISON: CT CT CHEST/ABD/PEL W from 11/19/[address] CHEST PE CTA from 07/10/[address] CAROTID NECK CTA from 02/18/2023 FINDINGS: CHEST: Tracheobronchial tree: Patent where visualized. Pulmonary parenchyma: No consolidation or dominant measurable mass. No architectural distortion. Pulmonary Arteries: No evidence of a central pulmonary embolus. There is limited opacification of th e segmental and subsegmental pulmonary arteries due to the timing of the bolus. Mediastinum and Ly: No dominant adenopathy or fluid collection. Visualized thyroid: Several thyroid nodules. The largest measures 5 mm. No follow-up is recommended . Pleura: No effusion or pneumothorax. Heart: The heart is not dilated. Coronary artery calcifications are present. Pacing wires are in goo d position. No pericardial effusion. Aorta: Thoracic aorta non-dilated. No evidence of dissection. Atherosclerosis is present. Soft Tissues: Unremarkable. Tubes, Catheters, and Lines: Cardiac pacing device is in place. Bones: Within normal limits for the patient's age.There are bilateral old healed rib fractures. ORIF of several left rib fractures are again noted. ABDOMEN AND PELVIS: Abdomen: Celiac axis/mesenteric arteries: No evidence of occlusion or significant stenosis. Renal Arteries: No evidence of occlusion or significant stenosis. Mild atherosclerosis at the origin of the left kidney. Aorta: No evidence of occlusion or significant stenosis. No aneurysm or dissection. Atherosclerosi s. Pelvis: Iliac Arteries: No evidence of occlusion or significant stenosis. Mild atherosclerosis. Common Femoral Arteries: No evidence of occlusion or significant stenosis. ABDOMEN: Liver: Normal density. No measurable mass. Gallbladder and Biliary Tract: Status post cholecystectomy. No significant biliary ductal dilatation . Pancreas: Normal density, no abnormal calcifications or inflammatory process. Spleen: Normal. Adrenals: No masses seen. Kidneys: Normal size, contour and axis. No radiodense stones or obstructive uropathy. Simple left lashanda al cysts. No follow-up is recommended. Bowel: There is diverticulosis in the colon but no evidence of acute diverticulitis. There is a larg e amount of stool throughout the colon suggesting constipation. There is no evidence of bowel obstru ction or bowel wall thickening. No evidence of pneumatosis. Appendix is unremarkable. Peritoneal Cavity: No ascites, collection or mesenteric inflammatory response. No free air. Lymph Nodes: Within normal limits. Bones: Within normal limits for the patient's age. Soft Tissues: Unremarkable. PELVIS: Bladder: Symmetric distention, no gross wall thickening. Reproductive Organs: Unremarkable as visualized. Lymph Nodes: Within normal limits. Bones: Within normal limits for the patient's age. IMPRESSION: 1. No evidence of thoracic, abdominal or pelvic aneurysm or dissection. 2. No acute pulmonary process. 3. Moderate amount of stool in the colon suggesting constipation. RADIATION DOSE DELIVERED: Total DLP DATA REPOSITORY: All CT scans at this facility are submitted to the National Radiology Data Registry (NRDR) Dose Index Registry (DIR) with the [employer] ([employer]). RADIATION OPTIMIZATION: All CT scans at this facility use at least one of these dose optimization te chniques: automated exposure control; mA and/or kV adjustment per patient size (includes targeted exa ms where dose is matched to clinical indication); or iterative reconstruction.
[2023-02-18 17:33] LABS: Creatine Kinase 53 U/L (39-308)
[2023-02-18 17:38] LABS: ALT 65 U/L (16-63); AST 48 U/L (15-37); Albumin 4.3 g/dL (3.4-5.0); Alkaline Phosphatase 69 U/L (46-116); Anion Gap 13.3 mmol/L (3-11); BUN 27 mg/dL (7-18); Bilirubin, Total 0.4 mg/dL (0.2-1.0); CO2 25.7 mmol/L (21.0-32.0); CREATININE 1.2 mg/dL (0.70-1.30); Calcium 9.8 mg/dL (8.5-10.1); Chloride 101 mmol/L (98-107); Estimated GFR 63.85 (mL/min/1.73m2); Glucose 144 mg/dL (74-106); Lipase 47 U/L (16-77); NT-proBNP 80 pg/mL (<300); Sodium 140 mmol/L (136-145); Troponin I < 50 ng/L (<or=60)
[2023-02-18] MEDS: Normal Saline 500 ML 1000 ML IV (17:43)
[2023-02-18 17:44] LABS: D-Dimer 274 ng/mlFEU (<500)
--- NOTE | 2023-02-18 18:15 | DI.CT_ITS ---
Exam(s) CT HEAD WO EXAM: CT HEAD WO CLINICAL HISTORY: vertigo. TECHNIQUE: Imaging Protocol: Axial computed tomography images with coronal and sagittal reformatted images were created and reviewed COMPARISON: CT CT HEAD WO from 12/26/2022 FINDINGS: Ventricles and Extra axial spaces: Normal in size and morphology for the patient's age. Hemorrhage: None. Cerebral parenchyma: Within normal limits for the patient's age. No acute abnormalities identified. Midline shift: None. Brainstem/Cerebellum: Normal. Calvarium: Normal. Visualized Paranasal sinuses/Mastoids: Clear. Soft Tissues: Unremarkable. IMPRESSION: No acute intracranial process. RADIATION DOSE DELIVERED: Total DLP DATA REPOSITORY: All CT scans at this facility are submitted to the National Radiology Data Registry (NRDR) Dose Index Registry (DIR) with the [employer] (A[employer]). RADIATION OPTIMIZATION: All CT scans at this facility use at least one of these dose optimization te chniques: automated exposure control; mA and/or kV adjustment per patient size (includes targeted exa ms where dose is matched to clinical indication); or iterative reconstruction.
--- NOTE | 2023-02-18 18:15 | DI.CT_ITS ---
Exam(s) CT CAROTID NECK CTA EXAM: CT CAROTID NECK CTA CLINICAL HISTORY: vertigo. TECHNIQUE: Imaging Protocol: Axial CT angiography was performed with multi-slice acquisition and mu lti-planar and/or 3D reconstructions. CONTRAST MATERIAL: Intravenous: Omnipaque 350 Contrast volume:85 mL COMPARISON: CT CT CHEST PE CTA from 07/10/2022 FINDINGS: CTA Neck W: Common Carotid: Right: No aneurysm, occlusion or significant stenosis. Left: No aneurysm, occlusion or significant stenosis. External Carotid: Right: No aneurysm, occlusion or significant stenosis. Left: No aneurysm, occlusion or significant stenosis. Internal Carotid: Right: No aneurysm, occlusion or significant stenosis. Mild atherosclerosis at the origin. Left: No aneurysm, occlusion or significant stenosis. Mild atherosclerosis at the origin. Vertebral Artery: Right: No aneurysm, occlusion or significant stenosis. Left: No aneurysm, occlusion or significant stenosis. Lung Apices: Normal. Bones: There are degenerative changes seen in the cervical spine. There is straightening of the norm al cervical lordosis. This may be due to muscle spasm or patient positioning. Soft Tissues: Portions of a cardiac pacing device are in place. Small thyroid nodules are seen. The largest is a 5 mm nodule in the right lobe of the thyroid gland. No follow-up is recommended. IMPRESSION: Normal CTA examination of the neck. No evidence of dissection, occlusion or significant stenosis. RADIATION DOSE DELIVERED: Total DLP Total DLP DATA REPOSITORY: All CT scans at this facility are submitted to the National Radiology Data Registry (NRDR) Dose Index Registry (DIR) with the [employer] (A[employer]). RADIATION OPTIMIZATION: All CT scans at this facility use at least one of these dose optimization te chniques: automated exposure control; mA and/or kV adjustment per patient size (includes targeted exa ms where dose is matched to clinical indication); or iterative reconstruction.
[2023-02-18] MEDS: Normal Saline - Diluent 50 ML VIAL 100 ML IJ (18:37)
[2023-02-18] MEDS: Omnipaque 350 MG/ML 100 ML BTL 185 ML IJ (18:40)
[2023-02-18] MEDS: Normal Saline 1,000 ML 125 ML IV (19:01)
--- NOTE | 2023-02-18 19:06 | DI.VRAD_ITS ---
PROCEDURE INFORMATION: Exam: CT Head Without Contrast Exam date and time: 02/18/2023 18:30 Age: 72 years old Clinical indication: Other: Vertigo TECHNIQUE: Imaging protocol: Computed tomography of the head without contrast. COMPARISON: CT HEAD WO 12/26/2022 15:37 FINDINGS: Brain: Mild cerebral atrophy. No edema or hemorrhage. Cerebral ventricles: No ventriculomegaly. Paranasal sinuses: No acute sinusitis. Mastoid air cells: No mastoid effusion. Bones/joints: No acute fracture. Soft tissues: No suspicious lesions. IMPRESSION: No acute intracranial findings. Dictated and Authenticated by: Karly Zamorano MD. Ordering:EDITH Finch MD
--- NOTE | 2023-02-18 19:09 | DI.VRAD_ITS ---
PROCEDURE INFORMATION: Exam: CTA Neck With Contrast Exam date and time: 02/18/2023 18:34 Age: 72 years old Clinical indication: Vertigo TECHNIQUE: Imaging protocol: Computed tomographic angiography of the neck with contrast. Exam focused on the cervical segments of the vasculature. 3D rendering (Not supervised by radiologist): MIP and/or 3D reconstructed images were created by the technologist. Contrast material: OMNIPAQUE 350; Contrast volume: 85 ml; Contrast route: INTRAVENOUS (IV); COMPARISON: CT HEAD CERVICAL SPINE WO 11/19/2021 16:23 FINDINGS: Tubes, catheters and devices: Cardiac pacemaker leads are partially seen. Right common carotid artery: No significant stenosis. No dissection or occlusion. Right internal carotid artery: Extracranial segment is patent with no significant stenosis. No dissection or occlusion. Right external carotid artery: No occlusion or significant stenosis. Left common carotid artery: No significant stenosis. No dissection or occlusion. Left internal carotid artery: Extracranial segment is patent with no significant stenosis. No dissection or occlusion. Left external carotid artery: No occlusion or significant stenosis. Right vertebral artery: No significant stenosis. No dissection or occlusion. Left vertebral artery: No significant stenosis. No dissection or occlusion. Thyroid: Multiple small thyroid nodules. Follow-up as per institutional protocol. Soft tissues: No significant soft tissue swelling. Bones/joints: Chronic bony changes with no acute fracture. Lungs: The lungs appear hyperinflated. IMPRESSION: 1. No acute arterial pathology. Patent carotid and vertebral system bilaterally. 2. Incidental findings as described. Dictated and Authenticated by: Karly Zamorano MD. Ordering:EDITH Finch MD
--- NOTE | 2023-02-18 19:26 | DI.VRAD_ITS ---
PROCEDURE INFORMATION: Exam: CTA Chest With Contrast CTA Abdomen and Pelvis With Contrast Exam date and time: 02/18/2023 6:41 PM Age: 72 years old Clinical indication: Other: Abdominal pain, chest pain TECHNIQUE: Imaging protocol: Computed tomographic angiography of the chest with contrast. Exam focused on the arteries. Computed tomographic angiography of the abdomen and pelvis with contrast. Exam focused on the arteries. 3D rendering (Not supervised by radiologist): MIP and/or 3D reconstructed images were created by the technologist. Contrast material: OMNIPAQUE 350; Contrast volume: 100 ml; Contrast route: INTRAVENOUS (IV); COMPARISON: CT CHEST/ABD/PEL W 11/19/2021 4:28 PM FINDINGS: Tubes, catheters and devices: Left subclavian transvenous pacemaker leads within the right cardiac chambers. VASCULATURE: Pulmonary arteries: Normal. No pulmonary emboli. Aorta: Minimal atherosclerotic disease of the thoracic aorta, without aneurysm or dissection. Celiac trunk and mesenteric arteries: No occlusion or significant stenosis. Renal arteries: No occlusion or significant stenosis. Right iliac arteries: No occlusion or significant stenosis. Left iliac arteries: No occlusion or significant stenosis. CHEST: Lungs: Unremarkable. No consolidation. No masses. Pleural spaces: Unremarkable. No pneumothorax. No pleural effusion. Heart: Unremarkable. No cardiomegaly. No pericardial effusion. Coronary arteries: Moderate atherosclerotic calcification of the visualized left anterior descending and left circumflex coronary arteries. ABDOMEN AND PELVIS: Liver: No mass. Gallbladder and bile ducts: Gallbladder surgically absent. Pancreas: Unremarkable. No mass. No ductal dilation. Spleen: Unremarkable. No splenomegaly. Adrenal glands: Unremarkable. No mass. Kidneys and ureters: Simple left renal cysts, for which no further evaluation necessary. Stomach and bowel: Moderate amount of stool throughout the colon, compatible constipation. No obstruction. Appendix: No evidence of appendicitis. Intraperitoneal space: Unremarkable. No free air. No significant fluid collection. Urinary bladder: Unremarkable. No mass. Reproductive: Unremarkable as visualized. Lymph nodes: Unremarkable. No enlarged lymph nodes. Bones/joints: Multilevel thoracic spine degenerative disc space narrowing and osteophyte formation. Plate and screw fixation of the left lateral 8th through 10th ribs. Degenerative changes of the hips and sacroiliac joints. Multilevel lumbar spine degenerative disc space narrowing and osteophyte formation, with associated central canal narrowing at the L4-L5 level. Soft tissues: Unremarkable. IMPRESSION: 1. No acute thoracic, abdominal, or pelvic abnormality. 2. Moderate amount of stool throughout the colon, compatible constipation. No obstruction. Midline appendix normal. Dictated and Authenticated by: Stanley Gamez MD. Ordering:EDITH Finch MD
[2023-02-18 21:23] LABS: Lactate 1.4 mmol/L (0.6-1.4)
== END 2023-02-18 22:10 | disposition home or self-care (01) ==
PROVIDERS: Emergency Provider Physician Assistant; PCP Family Medicine
DX: R53.1 Weakness (principal); E86.0 Dehydration; K59.00 Constipation, unspecified; R42 Dizziness and giddiness; R07.9 Chest pain, unspecified; R10.9 Unspecified abdominal pain; I25.10 Atherosclerotic heart disease of native coronary artery without angina pectoris; Z95.5 Presence of coronary angioplasty implant and graft; I48.91 Unspecified atrial fibrillation; Z79.899 Other long term (current) drug therapy; E11.42 Type 2 diabetes mellitus with diabetic polyneuropathy; Z95.810 Presence of automatic (implantable) cardiac defibrillator; K44.9 Diaphragmatic hernia without obstruction or gangrene; Z79.84 Long term (current) use of oral hypoglycemic drugs; E78.5 Hyperlipidemia, unspecified; Z72.0 Tobacco use
CPT/HCPCS: 70498; 71275; 80053; 82550; 83690; 93005; 96360; 96361; 99285; 70450; 74174; 83605; 83735; 83880; 84484; 85025; 85379; 93010; J3490

== ENCOUNTER 2023-03-10 12:15 | Emergency (ER) | payer OTHER, SELFPAY ==
[2023-03-10 12:18] VITALS: BP 127/80; PULSE 69; RESP 16; TEMP 36.7; O2SAT 99
--- NOTE | 2023-03-10 12:30 | DI.RAD_ITS ---
Exam(s) XR ANKLE RT COMPLETE XR FOOT RT COMPLETE EXAM: XR ANKLE RT COMPLETE and XR foot RT complete CLINICAL HISTORY: lateral ankle and foot pain, twist. TECHNIQUE: 2D digital imaging was performed of the right foot and ankle. Six images were obtained. AP, lateral and oblique views were obtained. COMPARISON: No priors. FINDINGS: BONES: There is a nondisplaced oblique fracture of the distal fibula at the level of the ankle mortis e. No bony destructive lesion is seen. There is a small plantar calcaneal spur. There is an entheso phyte at the posterior calcaneus. JOINTS: The ankle mortise is normally aligned. The joint spaces are well maintained. SOFT TISSUE: Soft tissue swelling around the ankle. IMPRESSION: 1. Nondisplaced oblique fracture of the distal right fibula. 2. Soft tissue swelling around the ankle. DATA REPOSITORY: RADIATION DOSE DELIVERED:
[2023-03-10 14:12] VITALS: BP 127/80; PULSE 69; RESP 16; TEMP 36.7; O2SAT 99
--- NOTE | 2023-03-10 14:50 | W.ED.GENAD ---
Discharge Plan Disposition Patient Disposition: Home Discharge Details Clinical Impression: Fracture, fibula Primary Care Provider: Dewayne Carrington ED Provider: Yumiko Prater Home Meds and New Rx's Prescriptions: New oxycodone 5 mg capsule 5 mg PO Q8H PRNQty: 8 0RF Continued clonazepam [Klonopin] 1 mg tablet 1 mg PO DAILY PRN amiodarone [Pacerone] 200 mg tablet 200 mg PO DAILY nitroglycerin [Nitrostat] 0.4 mg tablet, sublingual 0.4 mg sublingual Q5M PRN (Reason: chest pain) Qty: 30 3RF Rx Instructions: do not exceed 3 doses per episode furosemide 20 mg tablet 20 mg PO DAILY meclizine 25 mg tablet 25 mg PO DAILY PRN Victoza 3-Ruddy 0.6 mg/0.1 mL (18 mg/3 mL) pen injector 1.8 mg subcut DAILY metoprolol succinate 100 mg tablet extended release 24 hr 50 mg PO DAILY cyanocobalamin (vitamin B-12) [Vitamin B-12] 1,000 mcg tablet 1,000 mcg PO DAILY Patient Comments: not taking docusate sodium 50 mg capsule 50 mg PO DAILY PRN triamcinolone acetonide 0.5 % cream 1 applic topical BID PRN zolpidem 5 mg tablet 5 mg PO QHS PRN escitalopram oxalate 10 mg tablet 10 mg PO DAILY Patient Comments: Weaning off gabapentin 300 mg capsule 300 mg PO TID cholecalciferol (vitamin D3) [Vitamin D3] 50 mcg (2,000 unit) capsule 2,000 unit PO DAILY Xarelto 20 mg tablet 20 mg PO DAILY Qty: 90 3RF psyllium husk [Fiber (psyllium husk)] 0.52 gram capsule 0.52 g PO DAILY polyethylene glycol 3350 [Miralax] 17 gram powder in packet 17 g PO DAILY pantoprazole [Protonix] 20 MG tablet,delayed release (DR/EC) 40 mg PO HS Patient Comments: 4/5/18-40mg PO daily per pt Victoza 3-Ruddy 0.6 MG/0.1 ML pen injector 1.8 mg SQ HS tramadol 50 MG tablet 50 mg PO PRN PRN Mag 64 64 mg Tablet,Delayed Release (Dr/Ec) 128 mg PO BID Qty: 120 0RF atorvastatin [Lipitor] 80 mg tablet 20 mg PO HS Patient Comments: TAKE 1 TABLET BY MOUTH DAILY AT BEDTIME metformin 1,000 mg tablet 1,000 mg PO BID@0800,1700 lisinopril [Zestril] 2.5 mg tablet 2.5 mg PO QAM Patient Comments: TAKE 1 TABLET BY MOUTH EVERY DAY multivitamin Tablet 1 tab PO DAILY Discharge Instructions Instructions: Leg Fracture (ED) Additional Instructions: ice, rest tylenol as needed for pain oxycodone sparingly as this is addictive wear your boot and limit weightbearing follow-up with orthopedics return earlier with new or worsening complaint, sensation changes, or worsening pain Referrals: Homero Villegas MD [ [facility] STAFF PHYSICIAN] - Discharge Data Discharge Date/Time-TO BE ENTERED AT DEPARTURE: 03/10/23 14:12 Medical Decision Making Alert and oriented anticoagulated 72-year-old gentleman presenting with right ankle pain after twisting injury. Denies any knee pain Tenderness to palpation right ankle with swelling, neurovascularly intact X-rays ordered for further evaluation, evidence of fibular fracture, joint space not widened, will place in tall boot and refer to orthopedics Will give a small amount of oxycodone, discussion regarding opiates reviewed Will ice, elevate, and use cane for very limited weightbearing Return precautions reviewed and patient expressed understanding HPI General Date/Time Provider Initiated Documentation: 03/10/23 12:29. HPI Narrative: 72-year-old male do not be in presents with report of injury to right ankle, twisted and felt a snap. Uses a cane at baseline. Denies any additional injuries, specifically no head injury, has been ambulatory with discomfort. Related Data Home Medications Medication Instructions Recorded Confirmed pantoprazole 20 mg tablet,delayed 40 mg PO HS 12/06/13 03/10/23 release (Protonix) liraglutide 0.6 mg/0.1 mL (18 mg/3 1.8 mg SQ HS 01/19/17 03/10/23 mL) subcutaneous pen injector (Victoza 3-Ruddy) tramadol 50 mg tablet 50 mg PO PRN PRN 07/24/17 03/10/23 cholecalciferol (vitamin D3) 50 2,000 unit PO DAILY 06/13/19 03/10/23 mcg (2,000 unit) capsule (Vitamin D3) rivaroxaban 20 mg tablet (Xarelto) 20 mg PO DAILY #90 tabs 09/06/19 03/10/23 cyanocobalamin (vitamin B-12) 1,000 mcg PO DAILY 12/13/19 03/10/23 1,000 mcg tablet (Vitamin B-12) magnesium chloride 64 mg 128 mg (2 x 64 mg) PO BID #120 tabs 11/29/20 03/10/23 (magnesium chloride) tablet,delayed release (Mag 64) atorvastatin 80 mg tablet (Lipitor) 20 mg PO HS 12/19/20 03/10/23 polyethylene glycol 3350 17 gram 17 g PO DAILY 10/03/21 03/10/23 oral powder packet (Miralax) psyllium husk 0.52 gram capsule 0.52 g PO DAILY 10/03/21 03/10/23 (Fiber (psyllium husk)) lisinopril 2.5 mg tablet (Zestril) 2.5 mg PO QAM 11/20/21 03/10/23 metformin 1,000 mg tablet 1,000 mg PO BID@0800,1700 11/20/21 03/10/23 multivitamin 1 tab PO DAILY 11/20/21 03/10/23 amiodarone 200 mg tablet (Pacerone) 200 mg PO DAILY 04/01/22 03/10/23 clonazepam 1 mg tablet (Klonopin) 1 mg PO DAILY PRN 04/01/22 03/10/23 docusate sodium 50 mg capsule 50 mg PO DAILY PRN 04/01/22 03/10/23 triamcinolone acetonide 0.5 % 1 applic topical BID PRN 04/01/22 03/10/23 topical cream zolpidem 5 mg tablet 5 mg PO QHS PRN 04/01/22 03/10/23 nitroglycerin 0.4 mg sublingual 0.4 mg sublingual Q5M PRN chest 07/31/22 03/10/23 tablet (Nitrostat) pain #30 tabs escitalopram oxalate 10 mg tablet 10 mg PO DAILY 12/11/22 03/10/23 gabapentin 300 mg capsule 300 mg PO TID 12/11/22 03/10/23 furosemide 20 mg tablet 20 mg PO DAILY 12/16/22 03/10/23 liraglutide 0.6 mg/0.1 mL (18 mg/3 1.8 mg subcut DAILY 12/16/22 03/10/23 mL) subcutaneous pen injector (Victoza 3-Ruddy) meclizine 25 mg tablet 25 mg PO DAILY PRN 12/16/22 03/10/23 metoprolol succinate 100 mg 50 mg PO DAILY 02/18/23 03/10/23 tablet,extended release 24 hr oxycodone 5 mg capsule 5 mg PO Q8H PRN #8 caps 03/10/23 Previous Rx's Medication Instructions Recorded rivaroxaban 20 mg tablet (Xarelto) 20 mg PO DAILY #90 tabs 09/06/19 magnesium chloride 64 mg 128 mg (2 x 64 mg) PO BID #120 tabs 11/29/20 (magnesium chloride) tablet,delayed release (Mag 64) nitroglycerin 0.4 mg sublingual 0.4 mg sublingual Q5M PRN chest 07/31/22 tablet (Nitrostat) pain #30 tabs oxycodone 5 mg capsule 5 mg PO Q8H PRN #8 caps 03/10/23 Allergies Allergy/AdvReac Type Severity Reaction Status Date / Time adhesive tape Allergy Unknown rash Verified 03/10/23 12:22 latex AdvReac Intermediate trouble Verified 03/10/23 12:22 breathing/moving General Stated Complaint: Orthopedic SHAILESH: 4 PFSH All Active Problems (Updated 03/10/23 @ 13:56 by MAXIMO Walters) Fracture, fibula (Acute) Constipation (Acute) Dehydration, mild (Acute) Bilateral sensorineural hearing loss (Acute) Change in voice (Acute) Vertigo (Acute) Essential tremor (Acute) Paroxysmal atrial fibrillation (Acute) ICD (implantable cardioverter-defibrillator), dual, in situ (Acute) Left shoulder pain (Acute) Left sided sciatica (Acute) Hypokinesia of left ventricle (Acute) EF 48% Multiple fractures of ribs of left side (Acute) Medication management (Acute) MCC current use of 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 medical therapy (Acute) Imbalance (Acute) Discharge planning issues (Acute) Hammer toe (Acute) Peripheral neuropathy (Chronic) Ventricular tachyarrhythmia (Chronic) s/p ICD 2013 Clinical depression (Chronic) Obstructive sleep apnea (Chronic) Diverticulosis (Acute) Gastritis (Acute) Contusion of left knee, initial encounter (Acute 08/12/17) Disequilibrium (Chronic 11/10/16) Dysphagia (Acute) Contact dermatitis (Acute) Magnesium deficiency (Acute) Hypertension (Chronic) Diabetes (Chronic) Chronic pain (Chronic) Medical History Abrasion hip/leg Anal fissure Atrial fibrillation CAD (coronary artery disease) Conjunctivitis Constipation Contusion of left chest wall Contusion of left elbow and forearm Contusion of left lung COVID-19 Degenerative disc disease Degenerative tear of triangular fibrocartilage complex (TFCC) of wrist Depression determined by examination Dermatitis Diabetic peripheral neuropathy DVT prophylaxis Esophageal ring Family history of nephrolithiasis Foot drop, right Frequent falls GERD (gastroesophageal reflux disease) H/O ventricular tachycardia Hallucinations Hard stool Hematuria Hemothorax on left minimal Hiatal hernia History of nephrolithiasis History of paresthesia Hoarseness Hyperlipidemia pt. states its a fissure near his coccyx Hypomagnesemia Iron deficiency anemia Ischemic cardiomyopathy Kidney stones Leg edema Lumbar degenerative disc disease Medication monitoring encounter Pleural effusion Pneumothorax on left Pressure sore Pressure ulcer, buttock Rib pain on right side Steatohepatitis Tremor Type 2 diabetes mellitus Unspecified fracture of the lower end of right radius, subsequent encounter for closed fracture with routine healing (08/12/17) Surgical History History of cholecystectomy History of colonoscopy 12/17/18 History of coronary artery stent placement History of esophagogastroduodenoscopy (EGD) 12/17/18 History of permanent cardiac pacemaker placement with defib Family History Father Heart disease Mother Heart disease Brother Alcoholism Social History Smoking/Tobacco Use Status: Current every day Tobacco Type: smokeless tobacco Counseling given: patient declined Smoking risk assessment performed?: Yes Alcohol Intake: former Drug use: Never Substance use type: does not use Details: Pt states he vapes daily current occupation: Retired What type of physical activity do you participate in: bicycling Frequency: 3-4 times per week Do you feel safe at home: Yes Do you feel safe in your relationship?: Yes Course Vital Signs Vital signs: Vital Signs Temperature 36.7 C 03/10/23 12:18 Pulse 69 11/21/23 12:18 Respiratory Rate 16 03/10/23 12:18 Blood Pressure 127/80 03/10/23 12:18 Pulse Oximetry 99 03/10/23 12:18 Temperature 36.7 C 03/10/23 14:12 Temperature Source Skin 03/10/23 12:18 Pulse 69 03/10/23 14:12 Respiratory Rate 16 03/10/23 14:12 Respiratory Effort Normal, Non-Labored 03/10/23 12:55 Blood Pressure 127/80 03/10/23 14:12 Blood Pressure Position Sitting 03/10/23 12:18 Pulse Oximetry 99 03/10/23 14:12 Oxygen Delivery Method Room Air 03/10/23 12:18 Oxygen Flow Rate 0 03/10/23 12:18 Pain Level 8 03/10/23 12:18
== END 2023-03-10 14:12 | disposition home or self-care (01) ==
PROVIDERS: Emergency Provider Physician Assistant; PCP Family Medicine
DX: S99.911A Unspecified injury of right ankle, initial encounter (principal); X50.1XXA Overexertion from prolonged static or awkward postures, initial encounter; I10 Essential (primary) hypertension; E11.9 Type 2 diabetes mellitus without complications; Z79.899 Other long term (current) drug therapy; Z72.0 Tobacco use
CPT/HCPCS: 29515; 99284; 73610; 73630; 99283

== ENCOUNTER 2023-03-18 13:18 | Outpatient (CLI) | payer OTHER, SELFPAY ==
--- NOTE | 2023-03-18 13:00 | DI.RAD_ITS ---
Exam(s) XR ANKLE RT COMPLETE EXAM: XR ANKLE RT COMPLETE CLINICAL HISTORY: F/U FRACTURE. TECHNIQUE: 2D digital imaging was performed. COMPARISON: CR XR ANKLE RT COMPLETE from 03/10/2023 FINDINGS: 3 views Again noted is the oblique nondisplaced fracture of the distal fibula. Fracture line still evident. No widening of the ankle mortise. Talar dome unremarkable. Medial malleolus unremarkable. There is no fracture of the posterior malle olus evident. No degenerative changes in the tibiotalar and subtalar joints. Small inferior calcane al spur noted. Enthesophyte posteriorly at Achilles insertion on the posterior calcaneus noted. IMPRESSION: Stable appearance of the distal fibular fracture site. No widening of the ankle mortise. DATA REPOSITORY: RADIATION DOSE DELIVERED:
== END 2023-03-18 13:19 | disposition home or self-care (01) ==
LOC: DIORS 13:18
PROVIDERS: PCP Family Medicine; Referring Provider Family Medicine; Visit Provider Student in an Organized Health Care Education/Training Program
DX: S82.831D Other fracture of upper and lower end of right fibula, subsequent encounter for closed fracture with routine healing; W19.XXXD Unspecified fall, subsequent encounter; R60.0 Localized edema
CPT/HCPCS: 99213; 73610

== ENCOUNTER 2023-03-27 05:19 | Emergency (ER) | payer OTHER, SELFPAY ==
[2023-03-27] VITALS (63 sets, daily range): BP systolic 133–164; BP diastolic 54–103; PULSE 56–66; RESP 11–22; TEMP 36.6–36.9; O2SAT 94–98
--- NOTE | 2023-03-27 05:15 | RT.EKG_ITS ---
APPROVED REPORT Exam: Resting ECG Reason for Exam: a-fib Patient Location: E HR:58 bpm ECG Measurements Heart Rate 58 AXIS DC [id number] P [id number] QRSd 131 QRS -65 QT 483 T 30 QTc 475 Conclusion Sinus rythym. Otherwise unremarkable.
--- NOTE | 2023-03-27 05:15 | RT.EKG_ITS ---
APPROVED REPORT Exam: Resting ECG Reason for Exam: A-ozzie Patient Location: E HR:59 bpm ECG Measurements Heart Rate 59 AXIS CA 250 P 28 QRSd 136 QRS -66 QT 491 T 24 QTc 485 Conclusion Sinus bradycardia...rate< 60 Prolonged CA interval...CA >220, V-rate 50- 90
--- NOTE | 2023-03-27 05:30 | DI.RAD_ITS ---
Exam(s) XR PORTABLE CHEST AP EXAM: XR PORTABLE CHEST AP CLINICAL HISTORY: palpitations. TECHNIQUE: 2D digital imaging was performed. COMPARISON: CR,XR XR CHEST 2V PA LATERAL from 10/22/2022 FINDINGS: Single AP portable view. Bipolar left subclavian pacemaker with lead tips in RA and right ventricle again noted. Multiple hea led rib fractures again noted bilaterally including 3 fixation plates in the left 8th, 9th, and 10th ribs. Healed non plated rib fractures on the left side are again noted above this level. There is a lso a healed fracture on the opposite side of right rib number 8. Heart size is upper normal. The mediastinum is not widened. Lungs are clear. No infiltrates nor obvious pleural effusions. No CHF Nodular density in the right lung base is probably the breast nipple. IMPRESSION: No acute pulmonary findings on this single AP portable view of the chest.Cardiac pacemaker. No pulmo nary edema. 7 millimeter noncalcified nodular density right lung base noted which is probably the right breast ni pple. If clinically indicated can repeat frontal view with bilateral metallic nipple markers in plac e. DATA REPOSITORY: RADIATION DOSE DELIVERED:
[2023-03-27] MEDS: Lactated Ringers 500 ML IV (05:36)
--- NOTE | 2023-03-27 05:37 | ED.GENADUL_ITS ---
Discharge Plan Disposition Patient Disposition: Home Condition: Good Discharge Details Clinical Impression: Palpitations, Pacemaker Primary Care Provider: Dewayne Carrington ED Provider: Andres Fitzpatrick Home Meds and New Rx's Prescriptions: Continued amiodarone [Pacerone] 200 mg tablet 200 mg PO DAILY nitroglycerin [Nitrostat] 0.4 mg tablet, sublingual 0.4 mg sublingual Q5M PRN (Reason: chest pain) Qty: 30 3RF Rx Instructions: do not exceed 3 doses per episode Victoza 3-Ruddy 0.6 mg/0.1 mL (18 mg/3 mL) pen injector 1.8 mg subcut DAILY metoprolol succinate 100 mg tablet extended release 24 hr 50 mg PO DAILY docusate sodium 50 mg capsule 50 mg PO DAILY PRN triamcinolone acetonide 0.5 % cream 1 applic topical BID PRN zolpidem 5 mg tablet 5 mg PO QHS PRN gabapentin 300 mg capsule 300 mg PO TID duloxetine 20 mg capsule,delayed release(DR/EC) 20 mg PO BID cholecalciferol (vitamin D3) [Vitamin D3] 50 mcg (2,000 unit) capsule 2,000 unit PO DAILY Xarelto 20 mg tablet 20 mg PO DAILY Qty: 90 3RF psyllium husk [Fiber (psyllium husk)] 0.52 gram capsule 0.52 g PO DAILY polyethylene glycol 3350 [Miralax] 17 gram powder in packet 17 g PO DAILY pantoprazole [Protonix] 20 MG tablet,delayed release (DR/EC) 40 mg PO HS Patient Comments: 4/5/18-40mg PO daily per pt Victoza 3-Ruddy 0.6 MG/0.1 ML pen injector 1.8 mg SQ HS tramadol 50 MG tablet 50 mg PO PRN PRN Mag 64 64 mg Tablet,Delayed Release (Dr/Ec) 128 mg PO BID Qty: 120 0RF atorvastatin [Lipitor] 80 mg tablet 20 mg PO HS Patient Comments: TAKE 1 TABLET BY MOUTH DAILY AT BEDTIME metformin 1,000 mg tablet 1,000 mg PO BID@0800,1700 lisinopril [Zestril] 2.5 mg tablet 2.5 mg PO QAM Patient Comments: TAKE 1 TABLET BY MOUTH EVERY DAY multivitamin Tablet 1 tab PO DAILY Discharge Instructions Instructions: Heart Palpitations (ED) Additional Instructions: You were seen in the emergency department for lightheadedness, palpitations, and weakness. We performed labs, EKG, and chest x-ray that were all unremarkable. Your symptoms improved with IV fluids here. The interrogation of your pacemaker/AICD shows that you are briefly paced throughout the last evening. Your EKG and ekg monitor tech here did not show any evidence of any further pacing here in the emergency department. We spoke to [facility] cardiology who will call you urgently for a follow-up appointment in the next 1 to 2 weeks. They do not want to adjust any of your medications right now. Please return to the emergency department if you develop worsening symptoms. Follow-up with your primary care doctor in follow-up with the cardiology team as above. Referrals: Rosanna Andersen MD [ [facility] STAFF PHYSICIAN] - 2 weeks Dewayne Carrington [Primary Care Provider] - 1 week Medical Decision Making 72-year-old male history of ventricular tachycardia status post [employer] AICD, A-fib on amiodarone and Xarelto, ischemic cardiomyopathy, CAD, hypertension/hyperlipidemia, sleep apnea presents with palpitations. Differ ential is broad. Initial EKG is showing a sinus rhythm. Does not look like he is actively being paced. Will interrogate his pacemaker. Doubt ACS given no chest pain or shortness of breath but will still check cardiac enzymes though lower suspicion for ACS at this time. Will get chest x-ray to look for pneumonia or pneumothorax or any abnormal lead placement of his pacemaker. Will get broad labs to look for electrolyte or metabolic derangements that could be contributing. Will check a CBC to look for anemia. Will give some IV fluids in case some of this is secondary to dehydration. He has some vertigo chronically and no focal neurologic deficits presently with normal eyyaqr-xa-tnzl movements and lpnt-or-pohu movements and ambulatory without difficulty. Do not think this represents worsening vertigo at this time and certainly does not represent stroke given no neurologic deficits. Will treat with IV fluids while awaiting testing as above and reevaluate. 629am Chest x-ray and labs grossly unremarkable. Symptom-free presently. Still in a sinus rhythm. Interrogation of his pacemaker shows that he has had some ventricular pauses or bradycardia through the evening that he has never had previously on his events history. He was briefly paced with the [employer] technology intermittently throughout the evening. Certainly it shows that the pacemaker is functioning properly. Will reach out to [facility] cardiology as the patient has never had any bradycardia or pauses requiring the AICD/pacemaker to start pacing him for bradycardia. Will await cardiology recommendations and reevaluate. 702am Patient remains hemodynamically stable. Sinus rhythm on the monitor with no signs of pacing. Patient symptom-free presently and feels well. I spoke to [facility] ultimate hoops referee Maren Hernandez. Given the patient's unremarkable workup and clinical improvement here she would not make any changes presently. No medication changes at present. She sent a note to the follow-up team to get the patient a cardiology or electrophysiology follow-up within 1 to 2 weeks. He already has the AICD/pacemaker which should deal with any further episodes of mild bradycardia. Patient is okay with this plan. Symptom-free now. In sinus rhythm with no pacing. Will discharge with return precautions. Medical Records Medical records reviewed: Yes I reviewed the patient's medical records. Imaging Data Radiologic Study: Attestation: I personally reviewed and interpreted this imaging study as follows: Imaging: X-Ray (chest) My impression: Chest x-ray unremarkable Lab Data Lab results reviewed: Yes I reviewed the patient's lab results. ECG Data Attestation: I personally reviewed and interpreted this ECG (s) as follows: Prior ECG tracings: available for review Interpretation: Normal sinus rhythm. No signs of pacing. Normal axis. Rate of 59. No ST or T wave changes. Prolonged [place] interval. Mostly unremarkable compared to prior EKGs. HPI General Date/Time Provider Initiated Documentation: 03/27/23 05:33 . Limitations to Documentation: no limitations . Information obtained by: patient and EMS . HPI Narrative: This is a 72-year-old male history of ventricular tachycardia status post [employer] AICD, A-fib on amiodarone and Xarelto, ischemic cardiomyopathy, CAD, hypertension/hyperlipidemia, sleep apnea presents with palpitations. Says starting yesterday afternoon he has been having palpitations. Also feeling weak. No definitive chest pain or shortness of breath or any abdominal pain. He says he has been feeling dizzy but he cannot tell if this is his chronic vertigo that he has been dealing with for the last 5 months. Still able to walk with his cane. No recent medication changes. Was seen here in the emergency department a few weeks ago for a right fibula fracture and is in a walking boot still but still getting around well with a cane. He was worried as the symptoms did not go away and called an ambulance to bring him here. Has not noticed his AICD fire. Related Data Home Medications Medication Instructions Recorded Confirmed pantoprazole 20 mg tablet,delayed 40 mg PO HS 12/06/13 03/27/23 release (Protonix) liraglutide 0.6 mg/0.1 mL (18 mg/3 1.8 mg SQ HS 01/19/17 03/27/23 mL) subcutaneous pen injector (Victoza 3-Ruddy) tramadol 50 mg tablet 50 mg PO PRN PRN 07/24/17 03/27/23 cholecalciferol (vitamin D3) 50 2,000 unit PO DAILY 06/13/19 03/27/23 mcg (2,000 unit) capsule (Vitamin D3) rivaroxaban 20 mg tablet (Xarelto) 20 mg PO DAILY #90 tabs 09/06/19 03/27/23 magnesium chloride 64 mg 128 mg (2 x 64 mg) PO BID #120 tabs 11/29/20 03/27/23 (magnesium chloride) tablet,delayed release (Mag 64) atorvastatin 80 mg tablet (Lipitor) 20 mg PO HS 12/19/20 03/27/23 polyethylene glycol 3350 17 gram 17 g PO DAILY 10/03/21 03/27/23 oral powder packet (Miralax) psyllium husk 0.52 gram capsule 0.52 g PO DAILY 10/03/21 03/27/23 (Fiber (psyllium husk)) lisinopril 2.5 mg tablet (Zestril) 2.5 mg PO QAM 11/20/21 03/27/23 metformin 1,000 mg tablet 1,000 mg PO BID@0800,1700 11/20/21 03/27/23 multivitamin 1 tab PO DAILY 11/20/21 03/27/23 amiodarone 200 mg tablet (Pacerone) 200 mg PO DAILY 04/01/22 03/27/23 docusate sodium 50 mg capsule 50 mg PO DAILY PRN 04/01/22 03/27/23 triamcinolone acetonide 0.5 % 1 applic topical BID PRN 04/01/22 03/27/23 topical cream zolpidem 5 mg tablet 5 mg PO QHS PRN 04/01/22 03/27/23 nitroglycerin 0.4 mg sublingual 0.4 mg sublingual Q5M PRN chest 07/31/22 03/27/23 tablet (Nitrostat) pain #30 tabs gabapentin 300 mg capsule 300 mg PO TID 12/11/22 03/27/23 liraglutide 0.6 mg/0.1 mL (18 mg/3 1.8 mg subcut DAILY 12/16/22 03/27/23 mL) subcutaneous pen injector ([employer]za 3-Ruddy) metoprolol succinate 100 mg 50 mg PO DAILY 02/18/23 03/27/23 tablet,extended release 24 hr duloxetine 20 mg capsule,delayed 20 mg PO BID 03/18/23 03/27/23 release Previous Rx's Medication Instructions Recorded rivaroxaban 20 mg tablet (Xarelto) 20 mg PO DAILY #90 tabs 09/06/19 magnesium chloride 64 mg 128 mg (2 x 64 mg) PO BID #120 tabs 11/29/20 (magnesium chloride) tablet,delayed release (Mag 64) nitroglycerin 0.4 mg sublingual 0.4 mg sublingual Q5M PRN chest 07/31/22 tablet (Nitrostat) pain #30 tabs Allergies Allergy/AdvReac Type Severity Reaction Status Date / Time adhesive tape Allergy Unknown rash Verified 03/27/23 05:17 latex AdvReac Intermediate trouble Verified 03/27/23 05:17 breathing/moving General Stated Complaint: GenMedical SHAILESH: 3 Review of Systems Constitutional Constitutional: Reports chills, Reports fever(s), Denies headache(s) and Reports weakness Eyes Eyes: Denies change in vision ENT Ears, Nose, Mouth, and Throat: Reports vertigo, Denies headache(s) and Denies odynophagia Cardiovascular Cardiovascular: Denies chest pain, Denies dyspnea and Reports other (Palpitations) Respiratory Respiratory: Denies dyspnea Gastrointestinal Gastrointestinal: Denies abdominal pain, Denies diarrhea, Denies nausea, Denies odynophagia and Denies vomiting Genitourinary Genitourinary: Denies dysuria Musculoskeletal Musculoskeletal: Denies myalgias Integumentary/Breasts Skin/Breast: Denies changing lesions Neurologic Neurologic: Denies behavioral changes, Reports vertigo, Denies headache(s) and Reports weakness Psychiatric Psychiatric: Denies behavioral changes Endocrine Endocrine: Denies heat intolerance Hematologic/Lymphatic Hematologic/Lymphatic: Denies lymphadenopathy PFSH All Active Problems (Updated 03/27/23 @ 07:06 by Andres Fitzpatrick MD) Pacemaker (Acute) Palpitations (Acute) Fracture of distal end of right fibula (Acute ~03/10/23) Fracture, fibula (Acute) Bilateral sensorineural hearing loss (Acute) Change in voice (Acute) Vertigo (Acute) Essential tremor (Acute) Paroxysmal atrial fibrillation (Acute) ICD (implantable cardioverter-defibrillator), dual, in situ (Acute) Left shoulder pain (Acute) Left sided sciatica (Acute) Hypokinesia of left ventricle (Acute) EF 48% Multiple fractures of ribs of left side (Acute) Medication management (Acute) MCC current use of 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 medical therapy (Acute) Imbalance (Acute) Discharge planning issues (Acute) Hammer toe (Acute) Peripheral neuropathy (Chronic) Ventricular tachyarrhythmia (Chronic) s/p ICD 2013 Clinical depression (Chronic) Obstructive sleep apnea (Chronic) Diverticulosis (Acute) Gastritis (Acute) Contusion of left knee, initial encounter (Acute 08/12/17) Disequilibrium (Chronic 11/10/16) Dysphagia (Acute) Contact dermatitis (Acute) Magnesium deficiency (Acute) Hypertension (Chronic) Diabetes (Chronic) Chronic pain (Chronic) Medical History Degenerative tear of triangular fibrocartilage complex (TFCC) of wrist History of nephrolithiasis Tremor Foot drop, right COVID-19 Constipation Conjunctivitis Pressure sore History of paresthesia Leg edema Hoarseness H/O ventricular tachycardia Contusion of left chest wall Abrasion hip/leg Contusion of left elbow and forearm Hemothorax on left minimal Pleural effusion Pneumothorax on left Contusion of left lung Kidney stones Diabetic peripheral neuropathy Degenerative disc disease Depression determined by examination Type 2 diabetes mellitus Dermatitis Steatohepatitis Medication monitoring encounter Frequent falls Family history of nephrolithiasis Hard stool Hallucinations Hematuria Hypomagnesemia DVT prophylaxis Lumbar degenerative disc disease Iron deficiency anemia Ischemic cardiomyopathy Hiatal hernia GERD (gastroesophageal reflux disease) Hyperlipidemia pt. states its a fissure near his coccyx Atrial fibrillation CAD (coronary artery disease) Anal fissure Rib pain on right side Pressure ulcer, buttock Esophageal ring Unspecified fracture of the lower end of right radius, subsequent encounter for closed fracture with routine healing (08/12/17) Surgical History History of cholecystectomy History of coronary artery stent placement History of permanent cardiac pacemaker placement with defib History of esophagogastroduodenoscopy (EGD) 12/17/18 History of colonoscopy 12/17/18 Family History Father Heart disease Mother Heart disease Brother Alcoholism Social History Smoking/Tobacco Use Status: Current every day Tobacco Type: smokeless tobacco Counseling given: patient declined Smoking risk assessment performed?: Yes Alcohol Intake: former Drug use: Never Substance use type: does not use Details: Pt states he vapes daily current occupation: Retired What type of physical activity do you participate in: bicycling Frequency: 3-4 times per week Do you feel safe at home: Yes Do you feel safe in your relationship?: Yes Exam Const General: cooperative Nutritional Appearance: average body habitus Orientation: alert, awake and oriented x3 HENMT Head: normal to inspection Ears: external ears normal Mouth: moist mucous membranes Eyes Pupils: PERRL EOM: EOM intact bilaterally and No nystagmus Neck Neck: full ROM and no tracheal deviation Chest Chest: normal inspection of the chest Resp Auscultation: clear to auscultation bilaterally Cardio Rate: regular rate Rhythm: regular rhythm GI Inspection: normal to inspection Palpation: soft, no guarding, not rigid and nontender Back/Spine/Pelvis Back: No no CVA tenderness Thoracic/Lumbar Spine: thoracic and lumbar spine normal to inspection Skin General skin exam: no rashes or lesions noted Neuro General: patient alert, patient awake and patient oriented x3 Cranial Nerves: CN's II-XI intact bilaterally, PERRL and no nystagmus Cognition: normal cognition Motor: muscle tone normal throughout and strength 5/5 throughout Sensory Exam: no sensory deficits noted Extrem General: normal to inspection Course Vital Signs Vital signs: Vital Signs Temperature 36.6 C 03/27/23 05:23 Pulse 59 L 03/27/23 05:23 Respiratory Rate 14 03/27/23 05:23 Blood Pressure 150/71 H 03/27/23 05:23 Pulse Oximetry 98 03/27/23 05:23 Temperature 36.9 C 03/27/23 05:30 Temperature Source Temporal Artery Scan 03/27/23 05:30 Pulse 59 L 03/27/23 05:30 Respiratory Rate 14 03/27/23 05:30 Respiratory Effort Normal, Non-Labored 03/27/23 05:30 Respiratory Depth Normal 03/27/23 05:30 Respiratory Pattern Normal 03/27/23 05:30 Blood Pressure 163/74 H 03/27/23 05:30 Blood Pressure Position Sitting 03/27/23 05:30 Pulse Oximetry 96 03/27/23 05:30 Oxygen Delivery Method Room Air 03/27/23 05:30 Oxygen Flow Rate 0 03/27/23 05:23 Pain Level 0 03/27/23 05:30
[2023-03-27 05:38] LABS: Abs Immature Grans 0.05 10^3/uL (0.0-0.06); Absolute Basophil Count 0.06 10^3/uL (0.0-0.2); Absolute Eosinophil Count 1.45 10^3/uL (0.0-0.7); Absolute Lymphocyte Count 2.69 10^3/uL (1.2-3.4); Absolute Monocyte Count 0.65 10^3/uL (0.1-0.8); Absolute Neutrophil Count 4.09 10^3/uL (1.2-6.7); Basophils % 0.7; Eosinophils % 16.1; HGB 13.6 g/dL (13.5-17.5); Immature Grans % 0.6; Lymphocytes % 29.9; MCH 30.6 pg (27.0-33.0); MCHC 33.2 % (32.0-36.0); MCV 92 fL (80-95); MPV 8.7 fL (8.0-11.0); Monocytes % 7.2; Neutrophils % 45.5; Platelet Count 243 10^3/uL (130-400); RBC 4.45 10^6/uL (4.36-5.78); RDW 13.2 % (11.8-14.1); RDW-SD 44.4 fL; WBC 8.99 10^3/uL (4.4-10.8)
[2023-03-27 05:56] LABS: INR 1.1 (0.9-1.1)
[2023-03-27 06:02] LABS: ALT 49 U/L (16-63); AST 41 U/L (15-37); Albumin 3.7 g/dL (3.4-5.0); Alkaline Phosphatase 109 U/L (46-116); Anion Gap 9.5 mmol/L (3-11); BUN 23 mg/dL (7-18); Bilirubin, Total 0.4 mg/dL (0.2-1.0); CO2 26.5 mmol/L (21.0-32.0); CREATININE 1.1 mg/dL (0.70-1.30); Chloride 102 mmol/L (98-107); Estimated GFR 70.88 (mL/min/1.73m2); Glucose 158 mg/dL (74-106); Lipase 36 U/L (16-77); Magnesium 1.8 mg/dL (1.8-2.4); NT-proBNP 161 pg/mL (<300); Potassium 4.5 mmol/L (3.5-5.1); Sodium 138 mmol/L (136-145); Total Protein 7.5 g/dL (6.4-8.2); Troponin I < 50 ng/L (<or=60)
--- NOTE | 2023-03-27 06:17 | NUR.NOTE ---
pacemaker interrogated-[employer]. Nursing Note:
[2023-03-27 06:22] LABS: COVID-19 PCR Negative (Negative); Influenza A PCR Negative (Negative); Influenza B PCR Negative (Negative); RSV PCR Negative (Negative)
[2023-03-27 06:30] LABS: Source Nasopharynx
--- NOTE | 2023-03-27 07:13 | DI.VRAD_ITS ---
PROCEDURE INFORMATION: Exam: XR Chest Exam date and time: 03/27/2023 5:56 AM Age: 72 years old Clinical indication: Other: Palpitations TECHNIQUE: Imaging protocol: Radiologic exam of the chest. Views: 1 view. COMPARISON: CT THORAX ABD/PEL CTA 02/18/2023 6:41 PM FINDINGS: Tubes, catheters and devices: A pacemaker is seen in the left chest wall. Lungs: Unremarkable. No consolidation. Pleural spaces: Unremarkable. No pleural effusion. No pneumothorax. Heart/Mediastinum: Unremarkable. No cardiomegaly. Bones/joints: Postoperative changes in multiple left ribs. IMPRESSION: No acute cardiopulmonary findings. Dictated and Authenticated by: Max Pak MD. Ordering:ESTRADA Campos MD
== END 2023-03-27 07:20 | disposition home or self-care (01) ==
PROVIDERS: Emergency Provider Student in an Organized Health Care Education/Training Program; PCP Family Medicine
DX: R00.2 Palpitations (principal); R00.1 Bradycardia, unspecified; E11.9 Type 2 diabetes mellitus without complications; E78.5 Hyperlipidemia, unspecified; I48.91 Unspecified atrial fibrillation; I25.10 Atherosclerotic heart disease of native coronary artery without angina pectoris; F17.290 Nicotine dependence, other tobacco product, uncomplicated; Z79.01 Long term (current) use of anticoagulants; Z79.84 Long term (current) use of oral hypoglycemic drugs; Z95.0 Presence of cardiac pacemaker; Z95.5 Presence of coronary angioplasty implant and graft; Z20.822 Contact with and (suspected) exposure to COVID-19
CPT/HCPCS: 80053; 83690; 87637; 93005; 96360; 99283; 71045; 83735; 83880; 84484; 85025; 85610; 93010

== ENCOUNTER 2023-04-01 17:37 | Outpatient (CLI) | payer OTHER, SELFPAY ==
--- NOTE | 2023-04-01 14:50 | DI.RAD_ITS ---
Exam(s) XR ANKLE RT COMPLETE EXAM: XR ANKLE RT COMPLETE CLINICAL HISTORY: F/U FRACTURE. TECHNIQUE: 2D digital imaging was performed of the right ankle. Four images were obtained. AP, lat eral and oblique views were obtained. COMPARISON: CR XR ANKLE RT COMPLETE from 03/18/2023 FINDINGS: BONES: The oblique distal fibular fracture is still visualized on the current examination. There has been no change in alignment of the fracture. No new fracture is seen. No bony destructive lesion i s seen. Calcaneal spurs are present. JOINTS: The ankle mortise is normally aligned. The joint spaces are well maintained. SOFT TISSUE: Soft tissue swelling seen around the ankle laterally. IMPRESSION: Stable alignment of the distal fibular fracture. DATA REPOSITORY: RADIATION DOSE DELIVERED:
== END 2023-04-01 17:38 | disposition home or self-care (01) ==
LOC: DIORS 17:37
PROVIDERS: PCP Family Medicine; Visit Provider Student in an Organized Health Care Education/Training Program
DX: S82.831D Other fracture of upper and lower end of right fibula, subsequent encounter for closed fracture with routine healing (principal); X58.XXXD Exposure to other specified factors, subsequent encounter; M20.40 Other hammer toe(s) (acquired), unspecified foot
CPT/HCPCS: 99213; 73610

== ENCOUNTER 2023-05-19 15:53 | Outpatient (CLI) | payer OTHER, SELFPAY ==
--- NOTE | 2023-05-19 14:15 | DI.RAD_ITS ---
Exam(s) XR ANKLE RT COMPLETE EXAM: XR ANKLE RT COMPLETE CLINICAL HISTORY: F/U FRACTURE. TECHNIQUE: 2D digital imaging was performed of the right ankle. Three images were obtained. AP, la teral and oblique views were obtained. COMPARISON: CR XR ANKLE RT COMPLETE from 04/01/2023 FINDINGS: BONES: There is stable alignment of the distal fibular fracture. The fracture line is still visualiz ed. No new fracture is seen. There is a plantar calcaneal spur and enthesophyte at the posterior ca lcaneus. No bony destructive lesion is seen. JOINTS: The ankle mortise is normally aligned. SOFT TISSUE: Normal. IMPRESSION: Stable alignment of the distal fibular fracture. DATA REPOSITORY: RADIATION DOSE DELIVERED:
== END 2023-05-19 15:54 | disposition home or self-care (01) ==
LOC: DIORS 15:53
PROVIDERS: PCP Family Medicine; Referring Provider Family Medicine; Visit Provider Student in an Organized Health Care Education/Training Program
DX: S82.831D Other fracture of upper and lower end of right fibula, subsequent encounter for closed fracture with routine healing (principal); X58.XXXD Exposure to other specified factors, subsequent encounter
CPT/HCPCS: 99213; 73610

== ENCOUNTER 2023-05-25 17:20 | Outpatient (REF) | payer OTHER, SELFPAY ==
[2023-05-25 20:12] LABS: HCT 45.6 % (40.0-50.0); HGB 15.1 g/dL (13.5-17.5); MCH 30.9 pg (27.0-33.0); MCHC 33.1 % (32.0-36.0); MCV 93 fL (80-95); Platelet Count 243 10^3/uL (130-400); RBC 4.88 10^6/uL (4.36-5.78); RDW 13.7 % (11.8-14.1); RDW-SD 47.3 fL; WBC 7.25 10^3/uL (4.4-10.8)
[2023-05-25 20:34] LABS: ALT 52 U/L (16-63); AST 35 U/L (15-37); Albumin 4.3 g/dL (3.4-5.0); Alkaline Phosphatase 79 U/L (46-116); Anion Gap 12.4 mmol/L (3-11); BUN 23 mg/dL (7-18); Bilirubin, Total 0.5 mg/dL (0.2-1.0); CO2 25.6 mmol/L (21.0-32.0); Calcium 9.1 mg/dL (8.5-10.1); Chloride 103 mmol/L (98-107); Estimated GFR 78.98 (mL/min/1.73m2); Glucose 156 mg/dL (74-106); Magnesium 1.6 mg/dL (1.8-2.4); Potassium 5.1 mmol/L (3.5-5.1); Sodium 141 mmol/L (136-145); TSH 0.85 uIU/mL (0.36-3.74); Total Protein 7.4 g/dL (6.4-8.2)
[2023-05-25 20:49] LABS: Hemoglobin A1C 6.2 % (<5.7)
== END 2023-05-25 17:21 | disposition home or self-care (01) ==
LOC: NCHCN 17:20
PROVIDERS: PCP Family Medicine; Visit Provider Family Medicine
DX: E11.9 Type 2 diabetes mellitus without complications (principal); R25.1 Tremor, unspecified; K75.81 Nonalcoholic steatohepatitis (NASH)
CPT/HCPCS: 80053; 85027; 83036; 83735; 84443

== ENCOUNTER → 2023-06-10 12:53 | Outpatient (BNVA) | payer OTHER, SELFPAY | PROVIDERS: PCP Family Medicine; Visit Provider Physician Assistant | DX: I47.20 Ventricular tachycardia, unspecified (principal); I48.0 Paroxysmal atrial fibrillation; Z79.899 Other long term (current) drug therapy; I25.5 Ischemic cardiomyopathy; Z95.810 Presence of automatic (implantable) cardiac defibrillator | CPT/HCPCS: 93282 ==

== ENCOUNTER → 2023-06-12 09:51 | Outpatient (CLI) | payer OTHER, SELFPAY ==
--- NOTE | 2023-06-12 | DI.RAD_ITS ---
Exam(s) XR RIBS ONLY RT EXAM: XR RIBS ONLY RT CLINICAL HISTORY: R07.89 Other chest pain, Chest wall pain, right TECHNIQUE: 2D digital imaging was performed. COMPARISON: CR,XR XR PORTABLE CHEST AP from 03/27/2023 FINDINGS: RIBS 3 VIEWS- There is a mildly displaced fracture of the right 6th rib. Healed fracture of the right 8th rib note d. No other right rib fractures identified. No pneumothorax. CXR- 2 VIEWS: There are 3 plates in the opposite-left rib cage across the left 8th, 9th, and 10th left ribs. Bipolar left subclavian pacemaker noted. Lead tips in RA and RV. Heart size normal. Mediastinum no t widened. Lungs are clear. Small nodular density in the lower right lung region and is unchanged f rom previous and most probably the breast nipple. IMPRESSION: 1. There is an acute fracture of the right 6 rib with mild displacement. No pneumothorax nor lung co ntusion or pleural effusion. 2. Other findings as above. DATA REPOSITORY: RADIATION DOSE DELIVERED:
== END ==
PROVIDERS: PCP Student in an Organized Health Care Education/Training Program; Visit Provider Physician Assistant Medical
DX: S22.41XA Multiple fractures of ribs, right side, initial encounter for closed fracture (principal); X58.XXXA Exposure to other specified factors, initial encounter
CPT/HCPCS: 71046; 71100

== ENCOUNTER → 2023-06-26 00:52 | Outpatient (CLI) | payer OTHER, SELFPAY ==
--- NOTE | 2023-06-26 14:30 | DI.US_ITS ---
APPROVED REPORT EXAM: Comprehensive 2D, Doppler, and color-flow Echocardiogram Patient Location: Out-Patient [facility] Recessed Vat: Alexandre Arredondo RDCS (AE) Indications: Pacemaker, ventricular tachyarrythmia Conclusion Normal left ventricular wall thickness and chamber size. Ejection fraction is 50%. Septal motion is consistent with paced rhythm. There are no segmental wall motion abnormalities Normal right ventricular size and function Left atrium is moderately enlarged. Right atrium is mildly dilated Device lead noted in the right heart Aortic valve is sclerotic with trace regurgitation Normal mitral valve with trace regurgitation Normal tricuspid valve with trace regurgitation Wall motion Left Ventricle The left ventricle is normal size. Left ventricular systolic function is mildly decreased. There is n ormal left ventricular wall thickness. There are no segmental wall motion abnormalities septal motion consistent with paced rhythm.. There is no ventricular septal defect visualized. LVEF is 50%. Right Ventricle The right ventricle is normal size. Right ventricular systolic function is grossly normal. Device fabien d is present in the right ventricle. Atria Left atrium is moderately dilated. Right atrium is mildly dilated. The interatrial septum is intact w ith no evidence for an atrial septal defect. Aortic Valve The Aortic valve is sclerotic. Aortic valve is trileaflet. There is no aortic valvular stenosis. Trac e aortic regurgitation. Mitral Valve The mitral valve is normal in structure. No evidence of mitral valve stenosis. Trace mitral regurgita tion. Tricuspid Valve The tricuspid valve is normal in structure. There is no tricuspid valve stenosis. Trace tricuspid reg urgitation. Unable to assess PA pressure. Pulmonic Valve The pulmonary valve is normal in structure. There is no pulmonic valvular stenosis. There is no pulmo misa valvular regurgitation. Great Vessels The aortic root is normal in size. The ascending aorta is normal in size. Aortic arch is not well vis ualized. IVC is normal in size and collapses >50% with inspiration. Pericardium There is no pericardial effusion. 2D Dimensions IVSD d PLAX 0.98 cm M: 0.6-1.2 Ao Root d 3.28 cm M: 3.1 - 3.7 LVPW d PLAX 1.00 cm M: 0.6 - 1.2 Ao Asc Diam d 3.44 cm M: 2.6 - 3.4 LVID d PLAX 5.25 cm M: 4.2 - 5.8 LVDs 4.02 cm M: 2.5 - 4.0 LV EF Teichholz 46.3 % FS 23.32 % LV EDV (Teich) 132.3 mL LV ESV (Teich) 71.0 mL Stroke Vol Index (Teich) 29.46 M-Mode TAPSE 1.58 cm (M/F) >1.7 Auto EF LV EDV A4C 144.3 mL LV EDV A2C 90.6 mL LV EDV BP 118.0 mL LV ESV A4C 74.9 mL LV ESV A2C 49.0 mL LV ESV BP 61.2 mL LVEF(%) A4C 48.1 % LVEF(%) A2C 45.9 % LVEF(%) BP 48.2 % LV SV A4C 69.4 ml LV SV A2C 41.6 ml LV SV BP 56.8 ml LV CO A4C 4.4 L/min LV CO A2C 2.6 L/min LV CO BP 3.5 L/min HR A4C 64.06 BPM HR A2C 63.49 BPM LV EDV Index (BP) LA Volume LA Length A4C 5.4 cm LA Length A2C 5.8 cm LA Area A4C s 17.64 cm2 LA Area A2C s 20.92 cm2 LA Vol A4C A-L 48.57 mL LA Vol A2C A-L 64.00 mL LA Vol Biplane A-L 57.6 mL LA Vol/BSA A4C A-L LA Vol/BSA A2C A-L LA Vol/BSA BP A-L 27.7 mL/m2 LA Vol A4C MOD 45.6 mL LA Vol A2C MOD 59.7 mL LA Vol BP MOD 53.2 mL RA Volume RA Area A4C 13.4 cm2 RA ESV A4C (A-L) 33.2mL RA Vol/BSA A4C A-L RA Length A4C 4.6 cm RA ESV A4C (MOD) 33.5mL LV Diastology MV E' medial 0.074 (>0.07 m/s) MV E Vmax 0.61 (0.4-1.3 m/s) MV E/E' MED 8.18 (<14) MV A Vmax 0.70 (0.4-1.3 m/s) MV E' lateral 0.103 (>0.1 m/s) E/A Ratio 0.9 MV E/E' LAT 5.90 (<14) MV E' Average 0.088 m/s MV E/E'(average) 6.85 Aortic Valve AoV Vmax 1.06 m/s LVOT Vmax 0.77 m/s AoV Peak Grad 29.8 mmHg LVOT Peak Grad 2.4 mmHg AoV Area (Vmax) 2.50 cm2 LVOT VTI 0.166 m AoV VTI 0.263 m LVOT Mean Grad 1.2 mmHg AoV Mean [place]. 0.74 m/s LVOT SV 57.09 mL AoV Mean Grad 2.5 mmHg LVOT Diam s 2.05 cm AoV Area (VTI) 2.17 cm2 AV Regurg Peak Gr. 55.10 mmHg Velocity Ratio 0.73 AR Decel [place] 1.8m/sec2 AR DT 2097 msec AR PHT 608 msec AR Vmax 3.71 m/s Mitral Valve MV DT 169 (160-240 msec) Pulmonary Valve PV Vmax 0.75 (0.5-1.5 m/s) RVOT Vmax 0.63 m/s PV Peak Grad 2.2 mmHg RVOT Peak Gr. 1.6 mmHg PV Mean [place] 0.52 m/s RVOT VTI 0.153 m PV Mean Grad 1.3 mmHg RVOT Mean Gr. 0.8 mmHg
== END ==
PROVIDERS: PCP Student in an Organized Health Care Education/Training Program; Visit Provider Physician Assistant
DX: I47.20 Ventricular tachycardia, unspecified (principal)
CPT/HCPCS: 93306

== ENCOUNTER → 2023-06-30 13:47 | Outpatient (BNVA) | payer OTHER, SELFPAY | PROVIDERS: PCP Student in an Organized Health Care Education/Training Program; Visit Provider Internal Medicine Cardiovascular Disease | DX: I51.89 Other ill-defined heart diseases (principal); I48.0 Paroxysmal atrial fibrillation; I25.10 Atherosclerotic heart disease of native coronary artery without angina pectoris; Z95.810 Presence of automatic (implantable) cardiac defibrillator | CPT/HCPCS: 99213 ==

== ENCOUNTER → 2023-11-03 01:14 | Outpatient (CLI) | payer OTHER, SELFPAY ==
--- OUTSIDE RECORDS SUMMARY | 2023-11-03 01:18 | XMS_ITS | Encounter Summary ---
Author Organization [facility] Address [address] [place] [address] Care Team Providers Care Transit Authority Police Officer Name Role Phone Dewayne Carrington MD Primary Care Provider [phone] Encounter Details Date Type Department Care Team (Late st Contact Info) Description 05/21/2019 Lab Requisition [facility] Pathology & Laboratory Medicine - [facility] [address] [place] [address] Unknown, ProviderMD Social History Tobacco Use Types Packs/Day Years Used Date Smoking Tobacco: Former Cigarettes 0 04/20/1966 - 04/20/1986 Alcohol Use Standard Drinks/Week Comments No 0 (1 standard drink = 0.6 oz pur e alcohol) Sex and Gender Information Value Date Recorded Sex Assigned at Not on file Gender Identity Not on file Sexual Orientation Not on file documented as of this encounter Functional Status Cognitive Status Response Date of Assessm ent Because of a physical, menta l, or emotional condition, do you have serious difficulty concentrating, remembering, or making decisions? (5 years old or older) variable 03/24/2011 documented as of this encounter Plan of Treatment Not on file documented as of this encounter Procedures Procedure Name Priority Date/Time Associated Diagnosis Comments HEPATITIS B SURFACE ANTIGEN Routine 05/20/2019 14:15 EST documented in this encounter Results * HEPATITIS B SURFACE ANTIGEN (05/20/2019 14:15 EST) Hep B Surface Ag Negative Negative 05/23/2019 9:35 EST [facility] Blood VENOUS BLOOD / Unknown 05/20/2019 14:15 EST 05/22/2019 15:55 EST Provider Unknown CHEMISTRY & BLOOD GA S ORDERABLES [facility] [address] [place] [address] documented in this encounter Visit Diagnoses Not on filedocumented in this encounter Care Teams Transit Authority Police Officer Relationship Specialty Start Date End Date Dewayne Carrington MD [facility] [place] [address] PCP - General 12/20/18 documented as of this encounter
--- OUTSIDE RECORDS SUMMARY | 2023-11-03 01:18 | XMS_ITS | Encounter Summary ---
Author Organization [facility] Address [address] [place] [address] Care Team Providers Care Telemarketing Manager Name Role Phone Dewayne Carrington MD Primary Care Provider [phone] Encounter Details Date Type Department Care Team (Late st Contact Info) Description 05/12/2019 Lab Requisition [facility] Pathology & Laboratory Medicine - [facility] [address] [place] [address] Unknown, ProviderMD Social History Tobacco Use Types [...] Procedure Name Priority Date/Time Associated Diagnosis Comments SPEP, INCLUDES QUANTITATION OF MONOCLONAL SPIKE Routine 05/12/2019 10:00 EST documented in this encounter Results * (ABNORMAL) SPEP, INCLUDES QUANTITATION OF MONOCLONAL SPIKE (05/12/2019 10:00 EST) Total Protein 7.2 6.3 - 8.2 g/dL 05/13/2019 14:16 EST [facility] Albumin % 57.9 55.8 - 66.1 % 05/13/2019 14:16 [facility] Alpha-1 % 4.3 2.9 - 4.9 % 05/13/2019 14:16 [facility] Alpha-2 % 15.9(H) 7.1 - 11.8 % 05/13/2019 14:16 [facility] Beta % 12.6 8.4 - 13.1 % 05/13/2019 14:16 [facility] Gamma % 9.3(L) 11.1 - 18.8 % 05/13/2019 14:16 [facility] SPEP Comment No apparent monoclonal protein seen on serum electrophoresis 05/13/2019 14:16 [facility] Comment:See scanned/suppleme ntary report. Blood VENOUS BLOOD / Unknown 05/12/2019 10:00 EST 05/12/2019 21:33 EST Provider Unknown CHEMISTRY & BLOOD GA S ORDERABLES Performing Organization Address City/State/[facility] Co de Phone Number [facility] [address] [place] [address] documented in this encounter Visit Diagnoses Not on filedocumented in this encounter Care Teams Telemarketing Manager Relationship Specialty Start Date End Date Dewayne Carrington MD [address] [place] [address] PCP - General 12/20/18 documented as of this encounter
--- OUTSIDE RECORDS SUMMARY | 2023-11-03 01:18 | XMS_ITS | Referral Summary ---
Author Organization [facility] Address [address] [place] [address] Care Team Providers Care Gang Plank Workman Name Role Phone Dewayne Carrington MD Primary Care Provider [phone] Allergies No known active allergies Medications Medication Sig Dispensed Refills Start Date End Date Status aspirin chewable 81 mg tablet Take 81 mg by mouth daily. Active exenatide (BYETTA) 10 mcg/0.04 mL injection Inject 10 mcg into the skin 2 times daily. Active glipiZIDE (GLUCOTROL) 2.5 mg CR tablet Take 5 mg by mouth daily. Active lisinopril (PRINIVIL, ZESTRIL) 10 mg tablet Take 10 mg by mouth daily. Active metformin (GLUCOPHAGE) 1,000 mg tabletIndications:t ype 2 diabetes mellitus Take 1,000 mg by mouth 2 times daily. Indications: TYPE 2 DIABETES MELLITUS Active nadolol (CORGARD) 20 mg tabletIndications:h ypertension Take 20 mg by mouth daily. Indications: HYPERTENSION Active nortriptyline (PAMELOR) 50 mg capsuleIndications: depression Take 100 mg by mouth at bedtime. Indications: DEPRESSION Active nicotine polacrilex (NICORETTE) 4 mg gumIndications:[place] shawn withdrawal symptoms Take 4 mg by mouth as needed. Indications: NICOTINE WITHDRAWAL SYMPTOMS Active clopidogrel (PLAVIX) 75 mg tablet Take 75 mg by mouth daily. Active Active Problems Problem Noted Date Diagnosed Date Coronary atherosclerosis 04/11/2011 Overview: S/p PCI stent Nephrolithiasis 04/11/2011 Major depressive disorder 04/10/2011 Diabetes mellitus (HCC-CMS) 03/24/2011 Social History Tobacco Use Types Packs/Day Years Used Date Smoking Tobacco: Former Cigarettes 0 04/20/1966 - 04/20/1986 Alcohol Use Standard Drinks/Week Comments No 0 (1 standard drink = 0.6 oz pur e alcohol) Interpersonal Safety Answer Date Record ed Physically Hurt Never 11/20/2019 Verbally Threaten Not on file 11/20/2019 Sex and Gender Information Value Date Recorded Sex Assigned at Not on file Gender Identity Not on file Sexual Orientation Not on file Last Filed Vital Signs Vital Sign Reading Time Taken Comments Blood Pressure 103/69 05/05/2011 0951 EST Pulse 82 05/05/2011 0951 EST Temperature 36.2 ??C (97.2 ??F) 05/05/2011 0951 EST Respiratory Rate 18 05/05/2011 0951 EST Oxygen Saturation 100% 05/05/2011 0951 EST Inhaled Oxygen Concentration - - Weight 100.6 kg (221 lb 11.2 oz) 04/27/2011 1153 EST Height 185.4 cm (6' 0.99) 03/22/20112018 EST Body Mass Index 29.26 03/22/2011 2019 EST Functional Status Cognitive Status Response Date of Assessm ent Because of a physical, menta l, or emotional condition, do you have serious difficulty concentrating, remembering, or making decisions? (5 years old or older) variable 03/24/2011 Plan of Treatment Not on file Advance Directives For more information, please contact: [phone] Documents on File Type Date Recorded Patient Fusing Line Inspector Expl anation Advance Directive 05/15/2011 4:39 DPOA 04/30 * Full Code (Latest Code Status on File) Date Activated Date Inactivated Comments 03/22/2011 18:42 05/05/2011 15:10 Care Teams Gang Plank Workman Relationship Specialty Start Date End Date Dewayne Carrington MD [address] [place] [address] PCP - General 12/20/18
--- OUTSIDE RECORDS SUMMARY | 2023-11-03 01:18 | XMS_ITS | Continuity of Care Document ---
Author Organization [facility] Address [address] [place] [address] Care Team Providers Care Insurance Agent Name Role Phone Dewayne Carrington Primary Care Physician Encounter [id number] Date(s): 04/06/23 - 05/31/[address] [id number] Discharge Disposition: Home or Self Care Attending Physician: Homero Billingsley MD Admitting Physician: Homero Billingsley MD Referring Physician: Homero Billingsley MD Allergies, Adverse Reactions, Alerts Substance Reaction Severity Status ADHESIVE TAPE Unknown Active Medications amiodarone 200 mg oral tablet 180 EA, TAKE 2 TABLETS BY MOUTH EVERY DAY, 0 Refill(s) Start Date: 04/01/22 Status: Ordered ARIPiprazole 2 mg oral tablet 28 tab, 0 Refill(s) Start Date: 04/01/22 Status: Ordered atorvastatin 20 mg oral tablet 90 EA, TAKE 1 TABLET BY MOUTH DAILY, 0 Refill(s) Start Date: 04/01/22 Status: Ordered atorvastatin 80 mg oral tablet 0 Refill(s) Start Date: 04/01/22 Status: Ordered HYDROcodone-acetaminophen 10 mg-325 mg oral tablet 0 Refill(s) Start Date: 04/01/22 Status: Ordered lisinopril 2.5 mg oral tablet 90 EA, TAKE 1 TABLET BY MOUTH EVERY DAY, 0 Refill(s) Start Date: 04/01/22 Status: Ordered Xarelto 20 mg oral tablet 90 unknown unit, 0 Refill(s) Start Date: 04/01/22 Status: Ordered zolpidem 5 mg oral tablet 0 Refill(s) Start Date: 04/01/22 Status: Ordered Problem List Condition Confirmation Course Effective Dates Status H ealth Status Informant Anal fissure Confirmed Active Atrial fibrillation Confirmed Active Chronic pain Confirmed Active Coronary artery disease Confirmed Active Degenerative disc disease, lumbar Confirmed Active Degenerative tear of triangular fibrocartilage complex of wrist Confirmed Active Clinical depression Confirmed Active Diabetes mellitus Confirmed Active Diabetic peripheral neuropathy Confirmed Active Dysphagia Confirmed Active GERD (gastroesophageal reflux disease) Confirmed Active Hard stool Confirmed Active Hyperlipemia Confirmed Active Hypertension Confirmed Active Dermatitis Confirmed Active Nephrolithiasis Confirmed Active Esophageal ring Confirmed Active Magnesium deficiency Confirmed Active TOOTIE (obstructive sleep apnea) Confirmed Active Medication monitoring encounter Confirmed Active Frequent falls Confirmed Active Steatohepatitis Confirmed Active Ventricular tachycardia Confirmed Active Procedures Procedure Date Related Diagnosis Body Site Status Colonoscopy 1 11/04/10 Completed Cardiac catheterization with stents X 3 2 Completed Cholecystectomy 3 Complet ed 1with sedation 2done in 2007 and 2009 3from old PCP note Social History Social History Type Response Sex Male Patient Care team information Care Team Personnel Name: Dewayne Carrington MD Position: No Access Member Role: Informed Provider Address: Address: [address] [place], [place] [address]
--- OUTSIDE RECORDS SUMMARY | 2023-11-03 01:18 | XMS_ITS | Encounter Summary ---
Author Organization [facility] Address [address] [place] [address] Care Team Providers Care Physician Industrial Name Role Phone Dewayne Carrington MD Primary Care Provider [phone] Encounter Details Date Type Department Care Team (Late st Contact Info) Description 12/20/2020 Lab Requisition [facility] Pathology & Laboratory Medicine - [facility] [address], [place] [id number] Outr Resulting Lab, Provider Social History Tobacco Use Types Packs/Day Years [...] Procedure Name Priority Date/Time Associated Diagnosis Comments MAGNESIUM Routine 12/19/2020 14:45 EDT documented in this encounter Results * (ABNORMAL) MAGNESIUM (12/19/2020 14:45 EDT) Magnesium 1.6(L) 1.7 - 2.8 mg/dL 12/20/2020 16:50 EDT [facility] Blood VENOUS BLOOD / Unknown 12/19/2020 14:45 EDT 12/20/2020 16:30 EDT Provider Outr Resulting Lab CHEMISTRY & BLOOD GAS ORDERABLES [facility] [address] [place] [address] documented in this encounter Visit Diagnoses Not on filedocumented in this encounter Care Teams Physician Industrial Relationship Specialty Start Date End Date Dewayne Carrington MD [address] [place] [address] PCP - General 12/20/18 documented as of this encounter
--- OUTSIDE RECORDS SUMMARY | 2023-11-03 01:18 | XMS_ITS | Encounter Summary ---
Author Organization [facility] Address [address] [place] [address] Care Team Providers Care A R Specialist Name Role Phone Dewayne Carrington MD Primary Care Provider [phone] Encounter Details Date Type Department Care Team (Late st Contact Info) Description 12/26/2022 Lab Requisition [facility] Pathology & Laboratory Medicine - [facility] [address] [place], [place] [address] Outr Resulting Lab, Provider Social History Tobacco [...] Comments SPEP, INCLUDES QUANTITATION OF MONOCLONAL SPIKE PERFORMABLE Today 12/26/2022 15:53 EDT SPEP, INCLUDES QUANTITATION OF MONOCLONAL SPIKE Routine 12/26/2022 15:53 EDT PROTEIN, TOTAL Today 12/26/2022 15:53 EDT documented in this encounter Results * (ABNORMAL) SPEP, INCLUDES QUANTITATION OF MONOCLONAL SPIKE PERFORMABLE (12/26/2022 15:53 EDT) Albumin % 57.7 55.8 - 66.1 % 12/29/2022 13:12 [facility] Albumin g/dL 3.8 3.6 - 5.2 g/dL 12/29/2022 13:12 [facility] Alpha-1 % 4.5 2.9 - 4.9 % 12/29/2022 13:12 [facility] Alpha-1 g/dL 0.30 0.15 - 0.40 g/dL 12/29/2022 13:12 [facility] Alpha-2 % 16.9(H) 7.1 - 11.8 % 12/29/2022 13:12 [facility] Alpha-2 g/dL 1.10(H) 0.50 - 1.00 g/dL 12/29/2022 13:12 [facility] Beta % 11.8 8.4 - 13.1 % 12/29/2022 13:12 [facility] Beta g/dL 0.80 0.60 - 1.20 g/dL 12/29/2022 13:12 [facility] Gamma % 9.1(L) 11.1 - 18.8 % 12/29/2022 13:12 [facility] Gamma g/dL 0.60 0.60 - 1.60 g/dL 12/29/2022 13:12 [facility] SPEP Comment No apparent monoclonal protein seen on serum electrophoresis 12/29/2022 13:12 [facility] Comment:See scanned/suppleme ntary report. Total Protein 6.6 6.3 - 8.2 g/dL 12/29/2022 13:12 [facility] Blood VENOUS BLOOD / Unknown 12/26/2022 15:53 EDT 12/26/2022 22:00 EDT Provider Outr Resulting Lab CHEMISTRY & BLOOD GAS ORDERABLES Performing Organization Address City/[facility] Co de Phone Number [facility] [address] [place] [address] * PROTEIN, TOTAL (12/26/2022 15:53 EDT) Blood VENOUS BLOOD / Unknown 12/26/2022 15:53 EDT 12/26/2022 22:00 EDT Provider Outr Resulting Lab CHEMISTRY & BLOOD GAS ORDERABLES Performing Organization Address City/[facility] Co de Phone Number [facility] [address] [place] [address] documented in this encounter Visit Diagnoses Not on filedocumented in this encounter Care Teams A R Specialist Relationship Specialty Start Date End Date Dewayne Carrington MD [address] [place] [address] PCP - General 12/20/18 documented as of this encounter
--- OUTSIDE RECORDS SUMMARY | 2023-11-03 01:18 | XMS_ITS | Clinical Summary ---
Author Organization [facility] Address [address] [place] [address] Care Team Providers Care Deputy Controller Name Role Phone Dewayne Carrington MD Primary Care Provider [phone] Allergies No known active allergies Medications Medication [...] on file Sexual Orientation Not on file Obstetrics History Last Filed Vital Signs Vital Sign Reading [...] Body Mass Index 29.26 03/22/2011 2019 EST Plan of Treatment Health Maintenance Due Date Last Done Comments Hepatitis C Screen 1950 RSV Immunization ( o r 60+ Years) (1 - 1-dose 60+ series) 2009 Fall Risk Screening 2014 COVID-19 Vaccine ( season) 2022 Advance Directives For more information, please contact: [phone] Documents on File Type Date Recorded Patient Yoke Presser Expl anation Advance Directive 05/15/2011 4:39 DPOA 04/30 * Full Code (Latest Code Status on File) Date Activated Date Inactivated Comments 03/22/2011 18:42 05/05/2011 15:10 Care Teams Deputy Controller Relationship Specialty Start Date End Date Dewayne Carrington MD [place] [address] PCP - General 12/20/18
--- OUTSIDE RECORDS SUMMARY | 2023-11-03 01:19 | XMS_ITS | Encounter Summary ---
Author Organization [facility] Address [address] [place] [address] Care Team Providers Care Colorist Name Role Phone Iggy Sevilla MD Primary Care Provider [phone] Encounter Details Date Type Department Care Team (Latest Contact Info) Description 12/17/2018 14:48 EDT - 12/17/2018 23:59 EDT Hospital Encounter [address] [address] Unknown, Provider, Discharge Disposition: Home or Self Care Social History Tobacco Use Types Packs/Day Years [...] variable 03/24/2011 documented as of this encounter Medications at Time of Discharge Medication Sig Dispensed Refills Start Date End Date aspirin chewable 81 mg tablet Take 81 mg by mouth daily. clopidogrel (PLAVIX) 75 mg tablet Take 75 mg by mouth daily. exenatide (BYETTA) 10 mcg/0.04 mL injection Inject 10 mcg into the skin 2 times daily. glipiZIDE (GLUCOTROL) 2.5 mg CR tablet Take 5 mg by mouth daily. lisinopril (PRINIVIL, ZESTRIL) 10 mg tablet Take 10 mg by mouth daily. metformin (GLUCOPHAGE) 1,000 mg tabletIndications:type 2 diabetes mellitus Take 1,000 mg by mouth 2 times daily. Indications: TYPE 2 DIABETES MELLITUS nadolol (CORGARD) 20 mg tabletIndications:hyper tension Take 20 mg by mouth daily. Indications: HYPERTENSION nicotine polacrilex (NICORETTE) 4 mg gumIndications:nicotine withdrawal symptoms Take 4 mg by mouth as needed. Indications: NICOTINE WITHDRAWAL SYMPTOMS nortriptyline (PAMELOR) 50 mg capsuleIndications:depr ession Take 100 mg by mouth at bedtime. Indications: DEPRESSION documented as of this encounter Discharge Disposition Disposition Code Departure Means Destination Home or Self [facility]pc documented in this encounter Plan of Treatment Not on file documented as of this encounter Visit Diagnoses Not on filedocumented in this encounter Care Teams Colorist Relationship Specialty Start Date End Date Iggy Sevilla MD [address] [place] [address] PCP - General 03/24/11 12/19/18 documented as of this encounter
--- OUTSIDE RECORDS SUMMARY | 2023-11-03 01:19 | XMS_ITS | Encounter Summary ---
Author Organization [facility] Address [address] [place] [address] Care Team Providers Care Vp Purchasing Name Role Phone Iggy Sevilla MD Primary Care Provider [phone] Encounter Details Date Type Department Care Team (Late st Contact Info) Description 12/17/2018 Results Only [facility] [phone] Brandi Hartman MD [address] [place] [phone] Social History Tobacco Use Types Packs/Day Years [...] Procedure Name Priority Date/Time Associated Diagnosis Comments SURGICAL PATHOLOGY Routine 12/17/2018 16 :33 EDT documented in this encounter Results * SURGICAL PATHOLOGY (12/17/2018 16:33 EDT) Pathology Report: SURGICAL PATHOLOGY REPORT Reports generated via electronic interface contain original data; however they are lacking the format of the original report. Caution should be taken when reading/interpret ing unformatted reports. Name: ? MARQUEZ HENDRIX ? Accession #: ? [id number] ? : ? 1950 (Age: 68) ??M ? Collect Date: ? 12/17/2018 ? Location: ? [facility] ? Receive Date: ? 12/17/2018 ? Provider: BRANDI HARTMAN MD Copy to: JENNIFER VÁZQUEZ MD ? Final Pathologic Diagnosis: STOMACH, BIOPSY: - Gastric antral and fundic mucosa with mild parietal cell hyperplasia. - Negative for Helicobacter pylori on H and E stains. Document reviewed and electronically signed by: MANISH THOMPSON MD Report ??Date: 12/21/2018 14:50 By the signature above, the attending physician certifies that he/she has personally conducted a gross and/or microscopic examination of the described specimens and rendered or confirmed the above diagnosis. Specimen(s) Received: Gastric bx Clinical History: Dysphagia Gross Description: ? Received in formalin labelled with proper patient identification (initials G, T) and gastric BX are two pink-rizzo tissues (0.2 x 0.2 x 0.2 cm and 0.2 x 0.2 x 0.1 cm). Entirely submitted in block 1. MAXIMO Bustillo (ASCP) 12/17/2018 7:07 PM End of Report [facility] 12/17/2018 16:3 3 EDT 12/17/2018 16:33 EDT Brandi Hartman MD PATHOLOGY ORDERABLES [facility] [address] [place] [address] documented in this encounter Visit Diagnoses Not on filedocumented in this encounter Care Teams Vp Purchasing Relationship Specialty Start Date End Date Iggy Sevilla MD [address] [place] [address] PCP - General 03/24/11 12/19/18 documented as of this encounter
--- OUTSIDE RECORDS SUMMARY | 2023-11-03 01:20 | XMS_ITS | Clinical Summary ---
Author Organization [facility] Address [facility] [place] [address] Care Team Providers Care Radioactivity Technician Name Role Phone Dewayne Carrington MD Primary Care Provider [phone] Allergies Active Allergy Reactions Criticality Noted Date Comments Adhesive Tape Rash 05/27/2013 tegaderm ok Use paper tape Other reaction(s): rash Latex Medium 07/18/2014 Other reaction(s): trouble breathing/moving Medications Medication Sig Dispensed Refills Start Date End Date Status multivitamin capsule Take 1 capsule by mouth daily. Active LANCETS MISC by Misc.(Non-Drug; Combo Route) route. Active metformin (GLUCOPHAGE) 1,000 mg tablet Take 1,000 mg by mouth 2 times daily (with meals). Active nitroGLYcerin (NITROSTAT) 0.[address] 0.4 mg under the tongue every 5 minutes as needed. Reported on 09/30/2016 Active zolpidem (AMBIEN) 10 mg Tablet Take 5 mg by mouth nightly as needed. Active traMADol (ULTRAM) 50 mg Tablet Take 50 mg by mouth daily as needed for Pain. Active MAGNESIUM CARBONATE ORAL Take 400 mg by mouth 3 times daily. Active pantoprazole (PROTONIX) 40 mg Tablet, Delayed Release (E.C.) Take 40 mg by mouth daily. Active liraglutide (VICTOZA) 0.6 mg/0.1 mL (18 mg/3 mL) Pen Injector Inject 1.2 mg subcutaneously daily. Active rivaroxaban (XARELTO) 20 mg Tablet Take 1 tablet by mouth daily. 30 tablet 11 03/04/2017 Active aspirin 81 mg Tablet, Delayed Release (E.C.) Take 81 mg by mouth daily. Active metoprolol succinate (TOPROL-XL) 100 mg Tablet Sustained Release 24 hr Take 100 mg by mouth 2 times daily. Active FREESTYLE LITE STRIPS TEST THREE TIMES DAILY 0 08/27/2018 Active CHOLECALCIFEROL, VITAMIN D3, 2,000 unit Capsule take 1 capsule by mouth daily 0 07/29/2018 Active lamoTRIgine (LAMICTAL) 200 mg Tablet 150 mg daily. 0 08/29/2018 Active BD ULTRA-FINE MINI PEN NEEDLE 31 gauge x 3/16 Needle INJECT ONCE DAILY DIRECTED 0 10/07/2018 Active KlonoPIN 1 mg Tablet Take by mouth 3 times daily as needed. 10/05/2019 Active tacrolimus (PROTOPIC) 0.1 % Ointment Apply topically to buttocks twice daily for 6 weeks, repeat as needed 100 g 3 11/15/2019 Active ferrous sulfate 324 mg (65 mg iron) Tablet, Delayed Release (E.C.) Take 324 mg by mouth daily. Active lamoTRIgine (LaMICtal) 100 mg Tablet Take 50 mg by mouth daily. TAKES IN ADDITION TO 200 MG TAB Active cyanocobalamin, Vitamin B-12, (Vitamin B-12) 1,000 mcg Tablet Take 1,000 mcg by mouth daily. Active AMIOdarone (Paceron) 200 mg Tablet Take 400 mg by mouth daily. 11/29/2020 Active atorvastatin (Lipitor) 20 mg Tablet Take 1 tablet by mouth daily. 90 tablet 3 12/12/2020 Active Trintellix 5 mg Tablet Take 5 mg by mouth daily. 03/05/2022 Active lisinopriL (Zestril) 2.5 mg Tablet Take 1 tablet by mouth daily. 90 tablet 03/18/2022 Active Active Problems Problem Noted Date Diagnosed Date Atrial fibrillation 07/14/2019 Chronic pain 07/14/2019 Diverticular disease 07/14/2019 Dysphagia 07/14/2019 Magnesium deficiency 07/14/2019 Obstructive sleep apnea syndrome 07/14/2019 Rib pain on right side 07/14/2019 Pain in right wrist 02/17/2018 Closed fracture of lower end of right radius with routine healing 08/12/2017 Contusion of left knee 08/12/2017 Typical atrial flutter 07/18/2014 Overview (07/18/2014): ?? Occurred 06/08/13, lasted about 24 hours, and v rate about 80 (documented on ICD interrogation 07/18/14) ?? [id number] score = 3 ?? Patient initially reluctant to be anticoagulated as recommended Atrial pacemaker lead displacement 04/10/2014 Overview (04/10/2014): New finding at office follow up 04/10/2014 Plan lead reposition/replacement ICD (implantable cardioverter-defibrillator), luis enrique maier, in situ 01/11/2014 Overview (04/18/2014): New Atrial electrode: Guidant Dextrus Model# 4126-53 cm Serial# [id number] ?? Bipolar, steroid-tipped, active-fixation IS-1 lead ?? Access: Axillary vein ?? Location Right atrial appendage ?? P wave, PSA: 3 mV ?? P wave, ICD: 4.1 mV ?? Pacing threshold, PSA: 0.7 V at 0.5 ms ?? Pacing threshold, ICD: 0.7 V at 0.5 ms ?? Impedance, PSA: 560 ohms ?? Impedance, ICD: 557 ohms ?? Pace the diaphragm at 10 V: No Old Ventricular electrode: [employer]kin Audiotoniq Red Devil Model# 0292 Serial# [id number] ?? Bipolar, steroid-tipped, active-fixation DF-4 lead ?? Access: Axillary vein ?? Location: Right ventricular apex ?? Implanted: 01/10/2014 ?? R wave, PSA: NA mV ?? R wave, ICD: 8.9 mV ?? Pacing threshold, PSA: NA V at 0.5 ms ?? Pacing threshold, ICD: 0.7 V at 0.5 ms ?? Impedance, PSA: NA ohms ?? Impedance, ICD: 510 ohms Old Atrial electrode: Guidant Dextrus Model# 4136 Serial# [id number] ?? Bipolar, steroid-tipped, active-fixation IS-1 lead ?? Access: Axillary vein ?? Location Removed 04/17/2014 ?? Implanted: 01/10/2014 Pulse generator: Promobucket Incepta Model# E162 Serial# [id number] ?? DDDR ICD ?? Location: Subcutaneous The wound was closed with interrupted stitches of 2-0 Monocryl and the skin was closed with a subcuticular stitch of 4-0 Monocryl Plus. Medical adhesive (Dermabond) was applied to the incision which was covered with a Mepilex dressing. Cinefluoroscopy documented the initial and final implant positions. Initial atrial lead was noted to have dislodged on follow up and was replaced on 04/17/2014 Hypertension 01/09/2014 Hypomagnesemia 01/09/2014 Sustained VT (ventricular tachycardia) 4 Depression 01/06/2014 Overview (01/06/2014): --Treated with Lamictal. Dermatitis 06/17/2013 Irritant contact dermatitis 05/27/2013 T2DM (type 2 diabetes mellitus) 05/10/2013 Gastroesophageal reflux disease 05/10/2013 IBS (irritable bowel syndrome) 11/17/2011 Coronary atherosclerosis 04/11/2011 Overview (07/14/2019): Overview: S/p PCI stent Nephrolithiasis 04/11/2011 ASCVD (arteriosclerotic cardiovascular disease) 10/17/2010 Overview (11/06/2016): ?? Heart catheterization in [facility] in 2007 with placement of a stent in an unspecified vessel ?? Repeat heart catheterization in 2008 with placement of stents to both the LAD and circumflex ?? Followup heart catheterization in 2008 showing stable results in both vessels ?? Recurrent chest discomfort in a somewhat atypical pattern beginning fall ?? Nuclear stress test at [facility] in [place], [place] May 02, 2013 during which he developed left shoulder and arm discomfort during submaximal exercise on the treadmill and after which he was converted to a pharmacologic test; nuclear imaging showed ejection fraction of 45% with a partially reversible inferior defect ?? [place] [facility] [place]: normal left main, mild diffuse disease throughout the LAD with an 80% mid stenosis representing a restenosis lesion, mild diffuse disease in the proximal obtuse marginal branch, and mild diffuse disease throughout the right coronary artery; status post 3.0 X 12 mm JON to 80% mid-LAD lesion (in-stent restenosis) ?? Heart catheterization [facility] January 06, 2014 showing normal left main, hazy 50% mid LAD stenosis, mild diffuse disease throughout the circumflex, and moderate diffuse disease in the proximal RCA with a totally occluded distal RCA with brisk flow via bridging collaterals; fractional flow reserve on the LAD 0.85 ?? Nuclear stress test [facility] August 2016 reportedly showing a small area of inferior ischemia (final report pending) ?? Echo 11/06/16 showing inferior HK with EF 49%; no valvular disease Diabetes mellitus 10/17/2010 HTN (hypertension) 10/17/2010 Elevated cholesterol 10/17/2010 Resolved Problems Problem Noted Date Diagnosed Date Resolved Date Pressure injury of right buttock, stage 1 12/22/2018 03/04/2019 Encounters Date Type Department Care Team Description 09/19/2023 10:00 AM EDT - 09/19/2023 11:59 PM EDT Hospital Encounter [place] [address] Discharge Disposition: Home from Last 3 Months Social History Tobacco Use Types Packs/Day Years Used Date Smoking Tobacco: Every Day e-Cigarettes Smokeless Tobacco: Never Comments:using e cigarettes Alcohol Use Standard Drinks/Week Comments No 0 (1 standard drink = 0.6 oz pur e alcohol) Sex and Gender Information Value Date Recorded Sex Assigned at Not on file Gender Identity Not on file Sexual Orientation Not on file Last Filed Vital Signs Vital Sign Reading Time Taken Comments Blood Pressure 115/62 03/18/2022 2:39 PM EST Pulse 62 03/18/2022 2:39 PM EST Temperature 36 ??C (96.8 ??F) 10/23/2020 11:46 AM EDT Respiratory Rate 16 10/23/2020 12:41 PM EDT Oxygen Saturation 99% 12/12/2020 10:39 AM EDT Inhaled Oxygen Concentration - - Weight 86.4 kg (190 lb 8 oz) 03/18/2022 2:39 PM EST Height 186.7 cm (6' 1.5) 03/18/2022 2:39 PM EST Body Mass Index 24.79 03/18/2022 2:39 PM EST Plan of Treatment Upcoming Encounters Date Type Department Care Team (Late st Contact Info) Description 12/18/2023 10:00 AM EDT Hospital Encounter [place] [phone] Arrived Health Maintenance Due Date Last Done Comments CT Colonography 1949 Colonoscopy 1949 Colorectal Cancer Screening 1949 FIT DNA 1949 FIT 1949 Sigmoidoscopy (10 year) with FIT yearly 1949 Sigmoidoscopy 1949 Pneumoccocal Vaccine: 65+ (1 of 2 - PCV) 1955 DM Hemoglobin A1c 1959 DM Opthalmology Exam 1959 DM Urine Microalbumin yearly 1959 Tdap adult 1968 Tetanus vaccine 1968 Zoster vaccine (1 of 2) 1999 Advance Directive 2004 AAA Screen 2014 DM Creatinine yearly 03/19/2022 03/19/2021, 10/23/2020, 09/01/2018, Additional history exists Covid-19 Vaccine ( - 2022-2 4 season) 2022 Influenza (Flu) vaccine (1 o f 1 - Influenza standard series) 12/20/2023 Hepatitis C Screening Completed 03/19/2021 Medical Devices Implanted Type Area Head Grinder Device Identifier Shelf Expiration Date Model / Serial / Lot Bsx : E162 : [id number] Implanted:2013 (Quantity not on file) Defibrillator Lufkin Scientific E162 / [id number] / Description:Morales Scientifi c : E162 OLIVIA SOLIS : [id number] When MRI is ordered @ [facility], Defibrillator E162 and Leads 0292 and 4126 combined together do not constitute an ImageReady MRI-Conditional System. The patient may not have a MRI with this system in place.BENSON Molina [facility], MRI Safety Technologist 03/05/2018 Gdt [id number] Lead Guidant 4136 / [id number] / Description:When MRI is orde red @ [facility], Defibrillator E162 and Leads 0292 and 4126 combined together do not constitute an ImageReady MRI-Conditional System. The patient may not have a MRI with this system in place. BENSON Molina [facility], MRI Safety Technologist 03/05/2018 Bsx [id number] Lead [employer]kin [employer] 0292 / [id number] / Description:When MRI is orde red @ [facility], Defibrillator E162 and Leads 0292 and 4126 combined together do not constitute an ImageReady MRI-Conditional System. The patient may not have a MRI with this system in place. BENSON Molina, [place], MRI Safety Technologist 03/05/2018 Gdt [id number] Lead Guidant 4136 / [id number] / Description:When MRI is orde red @ [facility], Defibrillator E162 and Leads 0292 and 4126 combined together do not constitute an ImageReady MRI-Conditional System. The patient may not have a MRI with this system in place. BENSON Molina [facility], MRI Safety Technologist 03/05/2018 Procedures Procedure Name Priority Date/Time Associated Diagnosis Comments COMPREHENSIVE METABOLIC PANEL (NON-FASTING) Routine 03/19/2021 3:50 PM EST Abnormal liver function test HC HEPATITIS C ANTIBODY Routine 03/19/2021 3:50 PM EST Abnormal liver function test from Last 3 Months or Most Recently Relevant to Health Maintenance Results * Hepatitis C Antibody (03/19/2021 3:50 PM EST) Hepatitis C Ab Negative Negative [facility] Blood 03/19/2021 3:50 PM EST 03/19/2021 4:21 PM EST Narrative Resulting Agency Comment Spec In Lab Elsie Cristobal MD IMMUNOLOGY ORDERABLE S [facility] [place] [address] * (ABNORMAL) Comprehensive metabolic panel (non-fasting) (03/19/2021 3:50 PM EST) Glucose Lvl 143 65 - 199 mg/dL [facility] Comment:Diabetes: >=200 mg/d L plus symptoms BUN 20 10 - 20 mg/dL [facility] Creatinine 0.99 0.80 - 1.50 mg/dL [facility] Sodium 141 135 - 145 mmol/L [facility] Potassium 4.6 3.5 - 5.0 mmol/L [facility] Comment: Please note: ??Patients with WBC >100,000 may have falsely elevated Potassium levels. ??For accurate Potassium quantification in these patients send serum separator tube (gold top) for subsequent determinations. ??Contact the Clinical Chemistry Laboratory if there are any questions. Chloride 102 98 - 107 mmol/L [facility] CO2 25 22 - 31 mmol/L [facility] Anion Gap 14 5 - 15 mmol/L [facility] Calcium 9.9 8.5 - 10.5 mg/dL [facility] Total Protein 7.6 6.1 - 8.0 g/dL [facility] Albumin 4.7 3.2 - 5.2 g/dL [facility] AST 116(H) 0 - 39 unit/L [facility] ALT 124(H) 0 - 55 unit/L [facility] Alk Phos 77 40 - 130 unit/L [facility] Total Bilirubin 0.6 0.2 - 1.3 mg/dL [facility] Estimated GFR 76 >=60 mL/min/1. 73 m?? [facility] Comment: This patient? s estimated glomerular filtration rate (eGFR) is between 76 mL/min/1.73 m2 (patients with less muscle mass per kg body weight) and 88 mL/min/1.73 m2 (patients with more muscle mass per kg body weight) as determined by the CKD-EPI equation. Assessment of eGFR is not appropriate when creatinine concentrations are rapidly changing. For clinical decisions where creatinine clearance will affect therapy, a 24-hour urine creatinine clearance may be advised. Assignment of CKD stage 1 - 5 for patients with an eGFR near the transition point between stages may be based on clinical assessment of muscle mass and symptoms in addition to eGFR. Blood 03/19/2021 3:50 PM EST 03/19/2021 4:21 PM EST Narrative Resulting Agency Comment Spec In Lab Elsie Cristobal MD CHEMISTRY ORDERABLES [facility] [place] [address] from Last 3 Months or Most Recently Relevant to Health Maintenance Advance Directives * Full Code (Latest Code Status on File) Date Activated Date Inactivated Comments 04/17/2014 1:29 PM 04/18/2014 2:20 PM Question Answer Comments Order Status: Initial Order Does patient have decision m aking capacity? Yes, Order is based on Patients wishes. * Full Code Date Activated Date Inactivated Comments 01/06/2014 2:58 AM 01/11/2014 3:39 PM Question Answer Comments Order Status: Initial Order Does patient have decision m aking capacity? Yes, Order is based on Patients wishes. * Full Code Date Activated Date Inactivated Comments 05/13/2013 2:34 PM 05/14/2013 4:20 PM Question Answer Comments Order Status: Initial Order Does patient have decision m aking capacity? Yes, Order is based on Patients wishes. Care Teams Radioactivity Technician Relationship Specialty Start Date End Date Dewayne Carrington MD [address] [place] [address] PCP - General 09/02/16
--- OUTSIDE RECORDS SUMMARY | 2023-11-03 01:20 | XMS_ITS | Encounter Summary ---
Author Organization [facility] Address [address] [place] [address] Care Team Providers Care Sales Development Executive Name Role Phone Iggy Sevilla MD Primary Care Provider [phone] Reason for Visit * Reason Onset Date Comments Procedure 04/08/2011 Encounter Details Date Type Department Care Team (Late st Contact Info) Description 04/08/2011 Pre-Procedure Orders Encounter [facility] - [address] [address] Juwan Sawant MD [address] [place] [address] [address] [place] [phone] Social History Tobacco Use Types Packs/Day Years [...] on filedocumented in this encounter Care Teams Sales Development Executive Relationship Specialty Start Date End Date Iggy Sevilla MD [address] [place] [address] PCP - General 03/24/11 12/19/18 documented as of this encounter
--- OUTSIDE RECORDS SUMMARY | 2023-11-03 01:20 | XMS_ITS | Encounter Summary ---
Author Organization [facility] Address [address] [place] [address] Care Team Providers Care Harpsichord Maker Name Role Phone Iggy Sevilla MD Primary Care Provider [phone] Reason for Visit * Reason Onset Date Comments Procedure 04/24/2011 Encounter Details Date Type Department Care Team (Late st Contact Info) Description 04/24/2011 Pre-Procedure Orders Encounter [facility] Consultation Program - [address] [address] Juwan Sawant MD [address] [place] [address] [address] [place] [phone] Social History Tobacco Use Types Packs/Day Years [...] on filedocumented in this encounter Care Teams Harpsichord Maker Relationship Specialty Start Date End Date Iggy Sevilla MD [address] [place] [address] PCP - General 03/24/11 12/19/18 documented as of this encounter
--- OUTSIDE RECORDS SUMMARY | 2023-11-03 01:20 | XMS_ITS | Encounter Summary ---
Author Organization [facility] Address [address] [place] [address] Care Team Providers Care Cellars Supervisor Name Role Phone Iggy Sevilla MD Primary Care Provider [phone] Reason for Visit * Reason Onset Date Comments Procedure 04/22/2011 Encounter Details Date Type Department Care Team (Late st Contact Info) Description 04/22/2011 Pre-Procedure Orders Encounter [facility]ation Program - [address] [address] Juwan Sawant MD [address] [place] [address] [address] [place] [phone] Social History Tobacco Use Types Packs/Day Years [...] on filedocumented in this encounter Care Teams Cellars Supervisor Relationship Specialty Start Date End Date Iggy Sevilla MD [address] [place] [address] PCP - General 03/24/11 12/19/18 documented as of this encounter
--- OUTSIDE RECORDS SUMMARY | 2023-11-03 01:20 | XMS_ITS | Encounter Summary ---
Author Organization [facility] Address [address] [place] [address] Care Team Providers Care Carbonation Equipment Tender Name Role Phone Iggy Sevilla MD Primary Care Provider [phone] Reason for Visit * Reason Onset Date Comments Procedure 04/25/2011 Encounter Details Date Type Department Care Team (Late st Contact Info) Description 04/25/2011 Pre-Procedure Orders Encounter [facility] Consultation Program - [address] [address] Juwan Sawant MD [address] [place] [address] [address] [place] [phone] Social History Tobacco Use Types Packs/Day Years [...] on filedocumented in this encounter Care Teams Carbonation Equipment Tender Relationship Specialty Start Date End Date Iggy Sevilla MD [address] [place] [address] PCP - General 03/24/11 12/19/18 documented as of this encounter
--- OUTSIDE RECORDS SUMMARY | 2023-11-03 01:20 | XMS_ITS | Encounter Summary ---
[place] [address] Care Team Providers Care Voltage Tester Name Role Phone Dewayne Carrington MD Primary Care Provider [phone] Encounter Details Date Type Department Care Team (Latest Contact Info) Description 09/24/2022 10:00 AM EDT - 09/24/2022 11:59 PM EDT Hospital Encounter Non-[place] [address] Discharge Disposition: Home Social History Tobacco Use Types Packs/Day Years [...] on file documented as of this encounter Medications at Time of Discharge Medication Sig Dispensed Refills Start Date End Date Trintellix 5 mg Tablet Take 5 mg by mouth daily. 03/05/2022 lisinopriL (Zestril) 2.5 mg Tablet Take 1 tablet by mouth daily. 90 tablet 03/18/2022 AMIOdarone (Paceron) 200 mg Tablet Take 400 mg by mouth daily. 11/29/2020 atorvastatin (Lipitor) 20 mg Tablet Take 1 tablet by mouth daily. 90 tablet 3 12/12/2020 cyanocobalamin, Vitamin B-12, (Vitamin B-12) 1,000 mcg Tablet Take 1,000 mcg by mouth daily. lamoTRIgine (LaMICtal) 100 mg Tablet Take 50 mg by mouth daily. TAKES IN ADDITION TO 200 MG TAB ferrous sulfate 324 mg (65 mg iron) Tablet, Delayed Release (E.C.) Take 324 mg by mouth daily. KlonoPIN 1 mg Tablet Take by mouth 3 times daily as needed. 10/05/2019 tacrolimus (PROTOPIC) 0.1 % Ointment Apply topically to buttocks twice daily for 6 weeks, repeat as needed 100 g 3 11/15/2019 BD ULTRA-FINE MINI PEN NEEDLE 31 gauge x 3/16 Needle INJECT ONCE DAILY DIRECTED 0 10/07/2018 metoprolol succinate (TOPROL-XL) 100 mg Tablet Sustained Release 24 hr Take 100 mg by mouth 2 times daily. FREESTYLE LITE STRIPS TEST THREE TIMES DAILY 0 9 CHOLECALCIFEROL, VITAMIN D3, 2,000 unit Capsule take 1 capsule by mouth daily 0 07/29/2018 lamoTRIgine (LAMICTAL) 200 mg Tablet 150 mg daily. 0 08/29/2018 aspirin 81 mg Tablet, Delayed Release (E.C.) Take 81 mg by mouth daily. rivaroxaban (XARELTO) 20 mg Tablet Take 1 tablet by mouth daily. 30 tablet 11 03/04/2017 MAGNESIUM CARBONATE ORAL Take 400 mg by mouth 3 times daily. pantoprazole (PROTONIX) 40 mg Tablet, Delayed Release (E.C.) Take 40 mg by mouth daily. liraglutide (VICTOZA) 0.6 mg/0.1 mL (18 mg/3 mL) Pen Injector Inject 1.2 mg subcutaneously daily. traMADol (ULTRAM) 50 mg Tablet Take 50 mg by mouth daily as needed for Pain. zolpidem (AMBIEN) 10 mg Tablet Take 5 mg by mouth nightly as needed. multivitamin capsule Take 1 capsule by mouth daily. LANCETS MISC by Misc.(Non-Drug; Combo Route) route. metformin (GLUCOPHAGE) 1,000 mg tablet Take 1,000 mg by mouth 2 times daily (with meals). nitroGLYcerin (NITROSTAT) 0.[address] 0.4 mg under the tongue every 5 minutes as needed. Reported on 09/30/2016 documented as of this encounter Plan of Treatment Upcoming Encounters Date Type Department Care Team (Late st Contact Info) Description 12/18/2023 10:00 AM EDT Hospital Encounter [place] [address] Arrived documented as of this encounter Procedures Procedure Name Priority Date/Time Associated Diagnosis Comments PRO ICD INTERROGATION REMOTE UP TO 90 DAYS Routine 07/29/2022 3:41 AM EDT documented in this encounter Results * Cardiac Device Check - Remote (07/29/2022 3:41 AM EDT) Anatomical Region Laterality Modality Other 07/29/2022 3:41 AM EDT Shaheen Molina MD IMPLANTABLE CARDIAC DEVICE documented in this encounter Visit Diagnoses Not on filedocumented in this encounter Care Teams Voltage Tester Relationship Specialty Start Date End Date Dewayne Carrington MD [address] [place] [address] PCP - General 09/02/16 documented as of this encounter
--- OUTSIDE RECORDS SUMMARY | 2023-11-03 01:20 | XMS_ITS | Encounter Summary ---
[place] [address] Care Team Providers Care Lieutenant Governor Name Role Phone Dewayne Carrington MD Primary Care Provider [phone] Reason for Referral * Consultation (Routine) - Closed Specialty Diagnoses / Procedures Referred By Contac t Referred To Contact Neurology Diagnoses Dizziness and giddiness Dewayne Carrington MD [address] [place] [address] [facility] Neurology [address] [place] [phone] Referral ID Status Reason Start Date Expiration Date V isits Requested Visits Authorized [id number] Closed Second Opinion 04/07/2023 04/06/2024 1 1 Encounter Details Date Type Department Care Team (Latest Contact Info) Description 04/07/2023 Transcribe Orders eD Incoming Referrals [phone] Dewayne Carrington MD [address] [place] [address] Dizziness and giddiness Social History Tobacco Use Types Packs/Day Years [...] on file documented as of this encounter Plan of Treatment Upcoming Encounters Date Type Department Care Team (Late st Contact Info) Description 12/18/2023 10:00 AM EDT Hospital Encounter Non-Invasive [place] [address] Arrived Scheduled Referrals Name Type Priority Associated Diagnoses Orde r Schedule Referral to Neurology Outpatient Referral Routine Dizziness and giddiness Ordered: 04/07/2023 documented as of this encounter Visit Diagnoses Diagnosis Dizziness and giddiness documented in this encounter Care Teams Lieutenant Governor Relationship Specialty Start Date End Date Dewayne Carrington MD [address] [place] [address] PCP - General 09/02/16 documented as of this encounter
--- OUTSIDE RECORDS SUMMARY | 2023-11-03 01:20 | XMS_ITS | Encounter Summary ---
Author Organization [facility] Address [facility] [place] [address] Care Team Providers Care Master Machinist Name Role Phone Dewayne Carrington MD Primary Care Provider [phone] Reason for Visit * Consultation (Routine) - Closed Specialty Diagnoses / Procedures Referred By Conteddie t Referred To Contact Gastroenterology Diagnoses Steatohepatitis Dewayne Carrington MD [address] [place] [address] [facility] [address] [place] [address] Referral ID Status Reason Start Date Expiration Date V isits Requested Visits Authorized [id number] Closed Consult, Test & Treat PCP Updated and/or Approved 02/22/2022 02/22/2023 6 6 Encounter Details Date Type Department Care Team (Late st Contact Info) Description 03/18/2022 2:30 PM EST Office [place] [address] Elsie Cristobal MD [facility] [place] [address] Fatty liver Social History Tobacco Use Types Packs/Day Years [...] on file documented as of this encounter Last Filed Vital Signs Vital Sign Reading Time Taken Comments Blood Pressure 115/62 03/18/2022 2:39 PM EST Pulse 62 03/18/2022 2:39 PM EST Temperature - - Respiratory Rate - - Oxygen Saturation - - Inhaled Oxygen Concentration - - Weight 86.4 kg (190 lb 8 oz) 03/18/2022 2:39 PM EST Height 186.7 cm (6' 1.5) 03/18/2022 2:39 PM EST Body Mass Index 24.79 03/18/2022 2:39 PM EST documented in this encounter Progress Notes * Elsie Cristobal MD - 03/18/2022 2:30 PM EST Images from the original note were not included. Gastroenterology and Hepatology Follow Up Note Patient: Marquez Hendrix : 1950 Provider: Elsie Cristobal MD Problem List: Abnormal liver tests/fatty liver/liver fibrosis- likely multifactorial- past etoh, metabolic risk factors and use of amiodorone -ALT 41 08/2018, 57 11/2020, 124 02/2021, 70 01/2022 -Amiodorone 400mg started 09/2020, decreased to 200mg 03/2021 -iron studies normal, hep B s ag -, hep C ab neg, SONAL + 1:320, ASMA neg, normal A1AT -US 11/2019: mild diffuse increase in echogenicity, s/p ccy, normal spleen -metabolic risk factors: moderate to heavy etoh till 1999, obesity with weight loss since, diabetes -stopped etoh 1999 when surgeon said liver looked scarred at time of CCY -fiboscan 02/2021 11.3 kPa c/w F3 fibrosis -fibroscan 02/2022 12.1 kPa c/w F3 fibrosis Other issues: Ischemic cardiomyopathy echo 2017 EF 49% Hx of coronary stents Ventricular arrhythmias- sustained V Jorge A fib Hx of defibrillator/pacemaker placement Diabetes HTN Depression Interval History: Comes in for follow up of abnormal liver tests/advanced liver fibrosis on fibroscan. He has felt well. He is very happy with the fact that he has not had A fib or flutter since being on amiodorone. He was on 400mg/day and it was reduced to 200mg/day around Mar 2021 for elevated transaminases. He's had no edema. Labs from Jan 2022: Recent cardiology note from 02/08: Current Outpatient Medications Medication Sig Dispense Refill ??? Trintellix 5 mg Tablet Take 5 mg by mouth daily. ??? atorvastatin (Lipitor) 20 mg Tablet Take 1 tablet by mouth daily. 90 tablet 3 ??? cyanocobalamin, Vitamin B-12, (Vitamin B-12) 1,000 mcg Tablet Take 1,000 mcg by mouth daily. ??? lamoTRIgine (LaMICtal) 100 mg Tablet Take 50 mg by mouth daily. TAKES IN ADDITION TO 200 MG TAB ??? ferrous sulfate 324 mg (65 mg iron) Tablet, Delayed Release (E.C.) Take 324 mg by mouth daily. ??? KlonoPIN 1 mg Tablet Take by mouth 3 times daily as needed. ??? tacrolimus (PROTOPIC) 0.1 % Ointment Apply topically to buttocks twice daily for 6 weeks, repeat as needed 100 g 3 ??? BD ULTRA-FINE MINI PEN NEEDLE 31 gauge x 3/16 Needle INJECT ONCE DAILY DIRECTED 0 ??? metoprolol succinate (TOPROL-XL) 100 mg Tablet Sustained Release 24 hr Take 100 mg by mouth 2 times daily. ??? FREESTYLE LITE STRIPS TEST THREE TIMES DAILY 0 ??? CHOLECALCIFEROL, VITAMIN D3, 2,000 unit Capsule take 1 capsule by mouth daily 0 ??? lamoTRIgine (LAMICTAL) 200 mg Tablet 150 mg daily. 0 ??? rivaroxaban (XARELTO) 20 mg Tablet Take 1 tablet by mouth daily. 30 tablet 11 ??? MAGNESIUM CARBONATE ORAL Take 400 mg by mouth 3 times daily. ??? pantoprazole (PROTONIX) 40 mg Tablet, Delayed Release (E.C.) Take 40 mg by mouth daily. ??? liraglutide (VICTOZA) 0.6 mg/0.1 mL (18 mg/3 mL) Pen Injector Inject 1.2 mg subcutaneously daily. ??? traMADol (ULTRAM) 50 mg Tablet Take 50 mg by mouth daily as needed for Pain. ??? zolpidem (AMBIEN) 10 mg Tablet Take 5 mg by mouth nightly as needed. ??? multivitamin capsule Take 1 capsule by mouth daily. ??? LANCETS MISC by Misc.(Non-Drug; Combo Route) route. ??? metformin (GLUCOPHAGE) 1,000 mg tablet Take 1,000 mg by mouth 2 times daily (with meals). ??? nitroGLYcerin (NITROSTAT) 0.[address] 0.4 mg under the tongue every 5 minutes as needed. Reported on 09/30/2016 ??? lisinopriL (Zestril) 2.5 mg Tablet Take 1 tablet by mouth daily. 90 tablet 0 ??? AMIOdarone (Paceron) 200 mg Tablet Take 400 mg by mouth daily. ??? aspirin 81 mg Tablet, Delayed Release (E.C.) Take 81 mg by mouth daily. No current facility-administered medications for this visit. Vitals: 03/18/22 1439 BP: 115/62 BP Location ([facility]): Right arm Patient Position: Sitting BP Cuff Sizes: Adult (25-34 cm) Pulse: 62 Weight: 86.4 kg (190 lb 8 oz) Height: 186.7 cm (6' 1.5) Body mass index is 24.79 kg/m??. Exam: Looks well Fibroscan Results: Median kPa: 12.2 Mean IQR:11 % (goal is <30 %) Number of valid measurements: 21(at least 10 required) Number of invalid measurements: 0 Predicted fibrosis stage: F3 CAP (dB/m): 293 Estimated steatosis grade: 2/3 Assessment and Plan: 71 y.o. y.o. male with past history of alcohol use, long standing diabetes, past history of obesitywho likely has fatty liver disease from both metabolic issues and from past alcohol injury. He was noted to have an abnormal appearing liver [facility] years ago and stopped drinking then. Fotutnately, he has treated his metabolic risk factors with weight loss and per report diabetes is under reasona ble control. He also stopped alcohol 22 years ago. Liver fibrosis assessment today suggests stage 3fibrosis, not unexpected given his risk factors. With his underlying liver disease we would want toavoid amiodarone if at all possible especially since liver tests alea significantly when he was on higher doses. However, this has to be weighed against the significant benefit he is getting from thedrug in regards to arrhythmias. I think if it cannot be stopped the dose should be lowered to the lowest effective dose. I will try to communicate this to his cardiologists. Recommendations: -communicate with cardiology about lowering dose of amiodarone or finding an alternative. -maintenance of weight loss -continue statin- higher dose can likely be tolerated if deemed appropriate given hx of CAD. -continue liraglutide and metformin which are both associated with better outcomes in fatty liver -continue to abstain from alcohol -follow up one year with fibroscan Time spent with patient:40 min Time spent reviewing records, documentin min Elsie Cristobal MD Section of Gastroenterology & Hepatology [address] [place], [place] [id number] Cc: Dewayne Carrington MD documented in this encounter Procedure Notes * Elsie Cristobal MD - 03/18/2022 2:30 PM ESTAssociated Order(s): FIBROSCAN Procedure(s): FIBROSCAN Pre-Procedure Diagnose(s): Fatty liver [facility] Liver Fibrosis Assessment Report Indication: Fatty liver Performed by: Elsie Cristobal MD Procedure: Vibration Controlled Transient Elastography (VCTE) or Fibroscan Soren[place] Protocol: Patient's identity, procedure and site were verified, confirmatory pause performed. Discussed procedure including risks and potential complications. Questions answered. Patient verbalizes understanding and wishes to proceed with Fibroscan assessment. Patient was placed in the supine position with right arm in maximum abduction to allow optimal exposure of right lateral abdomen. Patient was briefly assessed. Testing was performed in the mid-axillary location. 50Hz Shear Wave pulses were applied and the resulting Shear Wave and Propagation Speed was detected with a 3.5MHz ultrasonic signal, using the Fibroscan probe. Skin to liver capsule distance and liver parenchyma were accessed during the entire examination with the Fibroscan probe. Patient was instructed to breathe normally and abstain from sudden movements during the procedure. At least ten Sheer Waves were produced; individual measurements of each Shear Wave were calculated. Patient tolerated the procedure well with no complications. Fibroscan Results: Median kPa: 12.2 Mean IQR:11 % (goal is <30 %) Number of valid measurements: 21(at least 10 required) Number of invalid measurements: 0 Predicted fibrosis stage: F3 CAP (dB/m): 293 Estimated steatosis grade: 2/3 Interpretation: Based on this Fibroscan result, history, clinical examination and review of laboratory and radiological data, this patient likely has stage 3 liver fibrosis. documented in this encounter Plan of Treatment Upcoming Encounters Date Type Department Care Team (Late st Contact Info) Description 12/18/2023 10:00 AM EDT Hospital Encounter Non-Invasive [place] [phone] Arrived documented as of this encounter Procedures Procedure Name Priority Date/Time Associated Diagnosis Comments [id number] Routine 03/18/2022 2:30 PM EST Fatty liver documented in this encounter Results * [id number] (03/18/2022 2:30 PM EST) Narrative Elsie Cristobal MD - 03/18/2022 2:30 PM EST Elsie Cristobal MD ? 03/18/2022 ??8:34 PM [facility] Liver Fibrosis Assessment Report Indication: ??Fatty liver Performed by: ??Elsie Cristobal MD Procedure: Vibration Controlled Transient Elastography (VCTE) or Fibroscan Soren[place] Protocol: Patient's identity, procedure and site were verified, confirmatory pause performed. Discussed procedure including risks and potential complications. Questions answered. Patient verbalizes understanding and wishes to proceed with Fibroscan assessment. Patient was placed in the supine position with right arm in maximum abduction to allow optimal exposure of right lateral abdomen. Patient was briefly assessed. Testing was performed in the mid-axillary location. 50Hz Shear Wave pulses were applied and the resulting Shear Wave and Propagation Speed was detected with a 3.5MHz ultrasonic signal, using the Fibroscan probe. Skin to liver capsule distance and liver parenchyma were accessed during the entire examination with the Fibroscan probe. Patient was instructed to breathe normally and abstain from sudden movements during the procedure. At least ten Sheer Waves were produced; individual measurements of each Shear Wave were calculated. Patient tolerated the procedure well with no complications. Fibroscan Results: Median kPa: 12.2 Mean IQR:11 % (goal is <30 %) Number of valid measurements: ??21(at least 10 required) Number of invalid measurements: 0 Predicted fibrosis stage: F3 CAP (dB/m): 293 Estimated steatosis grade: 2/3 Interpretation: Based on this Fibroscan result, history, clinical examination and review of laboratory and radiological data, this patient likely has stage 3 liver fibrosis. Elsie Cristobal MD PROCEDURE/MINOR SURG ICAL ORDERABLES documented in this encounter Visit Diagnoses Diagnosis Fatty liver Other chronic nonalcoholic liver disease documented in this encounter Care Teams Master Machinist Relationship Specialty Start Date End Date Dewayne Carrington MD [facility] [place] [address] PCP - General 09/02/16 documented as of this encounter
--- OUTSIDE RECORDS SUMMARY | 2023-11-03 01:20 | XMS_ITS | Encounter Summary ---
[place] [address] Care Team Providers Care Health Plan Advisor Name Role Phone Dewayne Carrington MD Primary Care Provider [phone] Encounter Details Date Type Department Care Team (Late st Contact Info) Description 03/27/2023 Telephone Cardiology at [address] [address] Halina Garcia Social History Tobacco Use Types Packs/Day Years [...] on file documented as of this encounter Miscellaneous Notes * Telephone Encounter - Halina Garcia - 03/27/2023 1:42 PM EST LVM - Please schedule patient for a device check within the next two weeks. He was seen at [facility] ED for dizziness and it is unclear if his device was interrogated completely. With Device Nurse is ok. [facility] Records have been requested. Halina Garcia EP Scheduling documented in this encounter Plan of Treatment Upcoming Encounters Date Type Department Care Team (Late st Contact Info) Description 12/18/2023 10:00 AM EDT Hospital Encounter Non-Invasive Cardiology [place] [address] Arrived documented as of this encounter Visit Diagnoses Not on filedocumented in this encounter Care Teams Health Plan Advisor Relationship Specialty Start Date End Date Dewayne Carrington MD [address] [place] [address] PCP - General 09/02/16 documented as of this encounter
--- OUTSIDE RECORDS SUMMARY | 2023-11-03 01:20 | XMS_ITS | Encounter Summary ---
[place] [address] Care Team Providers Care Dross Skimmer Name Role Phone Dewayne Carrington MD Primary Care Provider [phone] Encounter Details Date Type Department Care Team (Latest Contact Info) Description 03/23/2023 10:00 AM EST - 03/23/2023 11:59 PM EST Hospital Encounter Non-Invasive [place] [address] Discharge Disposition: Home Social History Tobacco Use [...] AM EDT Hospital Encounter Non-Invasive Cardiology [place] [address] Arrived documented as of this encounter Procedures Procedure Name Priority Date/Time Associated Diagnosis Comments PRO ICD INTERROGATION REMOTE UP TO 90 DAYS Routine 01/27/2023 3:41 AM EDT documented in this encounter Results * Cardiac Device Check - Remote (01/27/2023 3:41 AM EDT) Anatomical Region Laterality Modality Other 01/27/2023 3:41 AM EDT Fantasma Matos MD IMPLANTABLE CARDIAC DEVICE documented in this encounter Visit Diagnoses Not on filedocumented in this encounter Care Teams Dross Skimmer Relationship Specialty Start Date End Date Dewayne Carrington MD [address] [place] [address] PCP - General 09/02/16 documented as of this encounter
--- OUTSIDE RECORDS SUMMARY | 2023-11-03 01:20 | XMS_ITS | Encounter Summary ---
Author Organization [facility] Address [facility] [place] [address] Care Team Providers Care Dry Kiln Loader Name Role Phone Dewayne Carrington MD Primary Care Provider [phone] Encounter Details Date Type Department Care Team (Late st Contact Info) Description 03/27/2022 Orders Only Cardiology at [address] [phone] Fantasma Matos MD [facility] [place] [address] Social History Tobacco Use Types Packs/Day Years [...] AM EDT Hospital Encounter Non-Invasive [place] [address] Arrived documented as of this encounter Procedures Procedure Name Priority Date/Time Associated Diagnosis Comments CARDIAC DEVICE CHECK - REMOTE Routine 03/27/2022 3:42 AM EST documented in this encounter Results * Cardiac Device Check - Remote (03/27/2022 3:42 AM EST) Anatomical Region Laterality Modality Other 03/27/2022 3:42 AM EST Fantasma Matos MD IMPLANTABLE CARDIAC DEVICE documented in this encounter Visit Diagnoses Not on filedocumented in this encounter Care Teams Dry Kiln Loader Relationship Specialty Start Date End Date Dewayne Carrington MD [address] [place] [address] PCP - General 09/02/16 documented as of this encounter
--- OUTSIDE RECORDS SUMMARY | 2023-11-03 01:20 | XMS_ITS | Encounter Summary ---
Author Organization [facility] Address [address] [place] [address] Care Team Providers Care Roll Former Name Role Phone Iggy Sevilla MD Primary Care Provider Reason for Visit * Reason Onset Date Comments Procedure 04/04/2011 Encounter Details Date Type Department Care Team (Late st Contact Info) Description 04/04/2011 Pre-Procedure Orders Encounter [facility] Psychiatric Consultation Program - [address] [address] Juwan Sawant MD [address] [place] [address] [address] [place] [phone] Social History Tobacco Use Types Packs/Day Years [...] on filedocumented in this encounter Care Teams Roll Former Relationship Specialty Start Date End Date Iggy Sevilla MD [address] [place] [address] PCP - General 03/24/11 12/19/18 documented as of this encounter
--- OUTSIDE RECORDS SUMMARY | 2023-11-03 01:20 | XMS_ITS | Encounter Summary ---
Author Organization [facility] Address [address] [place] [address] Care Team Providers Care Icd 9 Coder Name Role Phone Iggy Sevilla MD Primary Care Provider Reason for Visit * Reason Onset Date Comments Procedure 04/01/2011 Encounter Details Date Type Department Care Team (Late st Contact Info) Description 04/01/2011 Pre-Procedure Orders Encounter [facility] Psychiatric Consultation Program - [address] [address] Juwan Sawant MD [address] [place] [address] [address] [place] [phone] Social History Tobacco Use Types Packs/Day Years [...] on filedocumented in this encounter Care Teams Icd 9 Coder Relationship Specialty Start Date End Date Iggy Sevilla MD [address] [place] [address] PCP - General 03/24/11 12/19/18 documented as of this encounter
--- OUTSIDE RECORDS SUMMARY | 2023-11-03 01:20 | XMS_ITS | Encounter Summary ---
Author Organization [facility] Address [address] [place] [address] Care Team Providers Care Small Kick Press Operator Name Role Phone Iggy Sevilla MD Primary Care Provider [phone] Reason for Visit * Reason Onset Date Comments Procedure 04/03/2011 Encounter Details Date Type Department Care Team (Late st Contact Info) Description 04/03/2011 Pre-Procedure Orders Encounter [facility] Psychiatric Consultation Program - [address] [address] Juwan Sawant MD [address] [place] [address] [address] [place] [phone] Social History Tobacco Use Types Packs/Day Years [...] on filedocumented in this encounter Care Teams Small Kick Press Operator Relationship Specialty Start Date End Date Iggy Sevilla MD [address] [place] [address] PCP - General 03/24/11 12/19/18 documented as of this encounter
--- OUTSIDE RECORDS SUMMARY | 2023-11-03 01:20 | XMS_ITS | Encounter Summary ---
Author Organization [facility] Address [address] [place] [address] Care Team Providers Care Garment Tag Stringer Name Role Phone Iggy Sevilla MD Primary Care Provider [phone] Reason for Visit * Reason Onset Date Comments Procedure 05/01/2011 Encounter Details Date Type Department Care Team (Late st Contact Info) Description 05/01/2011 Pre-Procedure Orders Encounter [facility] Psychiatric Consultation Program - [address] [address] Juwan Sawant MD [address] [place] [address] [address] [place] [phone] Social History Tobacco Use Types Packs/Day Years [...] on filedocumented in this encounter Care Teams Garment Tag Stringer Relationship Specialty Start Date End Date Iggy Sevilla MD [address] [place] [address] PCP - General 03/24/11 12/19/18 documented as of this encounter
--- OUTSIDE RECORDS SUMMARY | 2023-11-03 01:20 | XMS_ITS | Encounter Summary ---
[place] [address] Care Team Providers Care Gas Station Supervisor Name Role Phone Dewayne Carrington MD Primary Care Provider [phone] Encounter Details Date Type Department Care Team (Latest Contact Info) Description 09/19/2023 10:00 AM EDT - 09/19/2023 11:59 PM EDT Hospital Encounter Non-[place]vasive [place] [address] Discharge Disposition: Home Social History Tobacco Use [...] AM EDT Hospital Encounter Non-Invasive [place] [address] Arrived documented as of this encounter Visit Diagnoses Not on filedocumented in this encounter Care Teams Gas Station Supervisor Relationship Specialty Start Date End Date Dewayne Carrington MD [address] [place] [address] PCP - General 09/02/16 documented as of this encounter
--- OUTSIDE RECORDS SUMMARY | 2023-11-03 01:20 | XMS_ITS | Encounter Summary ---
[place] [address] Care Team Providers Care Cut Off Sawyer Name Role Phone Dewayne Carrington MD Primary Care Provider [phone] Encounter Details Date Type Department Care Team (Latest Contact Info) Description 06/21/2023 10:00 AM EST - 06/21/2023 11:59 PM EST Hospital Encounter Non[place] [address] Discharge Disposition: Home Social History Tobacco Use [...] EDT Hospital Encounter Non-Invasive [place] [address] Arrived documented as of this encounter Procedures Procedure Name Priority Date/Time Associated Diagnosis Comments PRO ICD INTERROGATION REMOTE UP TO 90 DAYS Routine 04/27/2023 3:41 AM EST documented in this encounter Results * Cardiac Device Check - Remote (04/27/2023 3:41 AM EST) Anatomical Region Laterality Modality Other 04/27/2023 3:41 AM EST Ta Negron MD IMPLANTABLE CARDIAC DEVICE documented in this encounter Visit Diagnoses Not on filedocumented in this encounter Care Teams Cut Off Sawyer Relationship Specialty Start Date End Date Dewayne Carrington MD [address] [place] [address] PCP - General 09/02/16 documented as of this encounter
--- OUTSIDE RECORDS SUMMARY | 2023-11-03 01:20 | XMS_ITS | Encounter Summary ---
Author Organization [facility] Address [address] [place] [address] Care Team Providers Care Machine Clerical Verifier Name Role Phone Iggy Sevilla MD Primary Care Provider [phone] Reason for Visit * Reason Onset Date Comments Procedure 04/17/2011 Encounter Details Date Type Department Care Team (Late st Contact Info) Description 04/17/2011 Pre-Procedure Orders Encounter [facility] Psychiatric Consultation Program - [address] [address] Juwan Sawant MD [address] [place] [address] [address] [place] [id number] Social History Tobacco Use Types Packs/Day Years [...] on filedocumented in this encounter Care Teams Machine Clerical Verifier Relationship Specialty Start Date End Date Iggy Sevilla MD [address] [place] [address] PCP - General 03/24/11 12/19/18 documented as of this encounter
--- OUTSIDE RECORDS SUMMARY | 2023-11-03 01:20 | XMS_ITS | Encounter Summary ---
Author Organization [facility] Address [address] [place] [address] Care Team Providers Care Multiple Effect Evaporator Operator Name Role Phone None, Provider Primary Care Provider Iggy Linda MD Primary Care Provider [phone] Encounter Details Date Type Department Care Team ([facility] st Contact Info) Description 03/22/2011 17:44 EST - 05/05/2011 12:17 EST Hospital Encounter [facility] Inpatient Psychiatry Unit [address] [place] [address] Sajan Stanford MD [address] [facility] Level [address] [place] [address] Mary Jauregui MD Munson, Richard G, MD Discharge Disposition: Home or Self Care Social [...] 1153 EST Height 185.4 cm (6' 0.99) 03/22/2011 2019 EST Body Mass Index 29.26 03/22/2011 2019 EST documented in this encounter Functional Status Cognitive Status Response Date of Assessm ent Because of a physical, menta l, or emotional condition, do you have serious difficulty concentrating, remembering, or making decisions? (5 years old or older) variable 03/24/2011 documented as of this encounter Discharge Summaries * Mary Jauregui MD - 03/26/2011 1117 EST INPATIENT PSYCHIATRIC DISCHARGE SUMMARY Patient Name: Shahnaz Santiago : 1950 Date of Admission: 03/22/2011 Date of Discharge: 05/05/2011 Attending at time of discharge: Mary Jauregui MD DISCHARGE DIAGNOSIS Terry I: Major Depression, single episode, with psychotic features. Terry II: Deferred Terry III: HTN, CAD s/p PCI with stent, type II DM, h/o nephrolithiasis, s/p cholecystectomy Terry IV: , unemployed, recently relocated Terry V: GAF on admission: 20 ; on discharge: 65 Reason for Admission: Depression, status post Intentional Overdose History of Present Illness: Per the HPI obtained by the Admitting Resident, Jenae Metz MD: 'This is a 60-year-old male with a past psychiatric history of major depression with onset following the of his in August of 2009. He presents for involuntary hospitalization tonight after ingesting #27 10 mg zolpidem tablets in attempt to suicide. This is the third lifetime hospitalizationfor Mr. Santiago, who was discharged from the [facility] on 03/19/11 after a two week stay for similar symptoms, which include isolation, hopelessness, helplessness, active suicidal ideation, anhedonia, irritability, social isolation, and perseveration around themes of decay, disappointment, and loss. According to Mr. Santiago's daughter, the patient was in his usual state of wellness until the deathof his second in August of 2009. Subsequent to her , Mr. Santiago became depressed and increasingly incapable of self-care, ultimately requiring voluntary inpatient psychiatric treatment in [place], [place], where Mr. Santiago and his had lived for many years. During that admission, Mr. Santiago was started on a regimen including duloxetine and mirtazapine. In May of 2010, at the end of that stay, Mr. Santiago's daughter travelled to [place], helped him sell his home, and moved him and his belongings to [place], where she rented an apartment in [place]. 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 Santiago has appeared progressively aimless and lacking in motivation. 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 Santiago has begun to sleep late and has become socially isolated. He seems hopeless and unhappy. In mid-February, when Mr. Sals symptoms became intolerable, he was assessed by a sand conditioner machine at [facility], where he answered affirmatively to questions about suicidal ideation. An admission to the [facility] was arranged, and under the care of Dr. Banegas, Mr. Sals regimen was changed, and in place of duloxetine and mirtazapine, perphenazine, nortriptyline, and zolpidem were started. On 03/19/11, two weeks after admission, Mr. Santiago discharged against medical advice. That evening, he was transported to the [facility] ED again by his daughter, who was impressed with the intensityof her father's symptoms. He again underwent Crisis assessment. Mr. Santiago was discharged home, but was readmitted to [facility] the following morning (03/21/11) after being found somnolent following ingesting #27 X 10 mg zolpidem in attempt to suicide. Currently, Mr. Santiago remains preoccupied with decay, worthlessness (both his own and that of those around him), and disappointment. He states that his life has no worth, and he asserts that he believes himself to be in hell. He admits to ongoing suicidal ideation, though he lacks current plan or intent. Mr. Santiago shakes his head repeatedly to reflect stunned dismay about these multiple disappointments. Everyone he meets and everything he experiences is substandard and of poor quality. The clothing sent for this admission by his daughter are inexplicably unacceptable, as is his physical exam, the food offered by the hospital, the number of garbage cans available on the unit, the presenceof a woman in the group room as he passes in the hallway. 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 The acuity of Mr. Santiago's worsening since admission at has caused his daughter to become concerned that the patient is not tolerating the regimen started there. Mr. Santiago's daughter is also concerned that his presentation shares similarities with that her his mother, who suffered relatively early-onset Alzheimer's dementia. She denies that Mr. Santiago has exhibited recent changes in praxis or other aspects of executive functioning. Meds on Admission: Prescriptions prior to admission Medication Sig Dispense Refill ??? aspirin chewable 81 mg tablet Take 81 mg by mouth daily. ??? exenatide (BYETTA) 10 mcg/0.04 mL injection Inject 10 mcg into the skin 2 times daily. ??? glipiZIDE (GLUCOTROL) 2.5 mg CR tablet Take 5 mg by mouth daily. ??? lisinopril (PRINIVIL, ZESTRIL) 10 mg tablet Take 10 mg by mouth daily. ??? hydrochlorothiazide (HYDRODIURIL) 25 mg tablet Take 12.5 mg by mouth daily. ??? metformin (GLUCOPHAGE) 1,000 mg tablet Take 1,000 mg by mouth 2 times daily. Indications: TYPE 2 DIABETES MELLITUS ??? nadolol (CORGARD) 20 mg tablet Take 20 mg by mouth daily. Indications: HYPERTENSION ??? nortriptyline (PAMELOR) 50 mg capsule Take 100 mg by mouth at bedtime. Indications: DEPRESSION ??? nicotine polacrilex (NICORETTE) 4 mg gum Take 4 mg by mouth as needed. Indications: NICOTINE WITHDRAWAL SYMPTOMS ??? perphenazine (TRILAFON) 8 mg tablet Take 12 mg by mouth at bedtime. ??? clopidogrel (PLAVIX) 75 mg tablet Take 75 mg by mouth daily. ??? Fenofibric Acid 135 mg CpDR Take 135 mg by mouth daily. Hospital Course: (attributable to Miguel Davila MD and Richard Chaney MS3s with edits in italics.) The patient was admitted to [facility] Inpatient Psychiatry unit involuntarily. History was obtained from the patient as well as his daughter. Review of systems was remarkable for hypercholesterolemia and CAD s/p stent placement, and type II DM. Admission physical exam was unremarkable. Admission labs were remarkable for AST of 53 and GGT 82. Upon admission the patient was restarted on his outpatient antihypertensive, antihypercholesterolemia regimen, and placed on a Diabetic regimen with sliding scale insulin in place of non-formulatory Exenatide. His Nortriptyline was restarted at 25mg daily. Perphenazine was restarted at 4mg (lower than his normal dose due to patient's unclear blood glucose control), and he was started on Ativan 1mg qhs. On his first day after admission patient stated that he has been taking Ambien 10mg qhs for years and admitted that he occasionally took more than he was prescribed. The patient spoke at length abouthis desire to obtain treatment voluntarily, and after evaluation by the Attending, the patient was converted to Voluntary status. On hospital day 2 the patient was still endorsing the cardinal symptoms of depression but denied suicidal ideation. He also spoke of his desire to get his life back on track. Nortriptyline was increased to 100mg daily, and the patient was provided counseling about ECT.On his 3rd day after admission the patient stated that he felt like a void and had a defeatist outlook on life. He spoke several times about trivial things, such as a small bruise and clothing, andmade distressed remarks about on his perceived undersized genitalia. The patient had an ECT consultwith Dr. Walter on day 4 , was felt to be an appropriate candidate for ECT, and the patient agreed to treatment. During this time, Perphenazine was increased to 8mg daily scheduled QHS on the 9th day. Questions about daughters guardianship arose and were resolved by the court and he resumed ECT on Day 11. On day 14, he complained of shoulder pain consistent with pain he had prior to admission. He requested and received Oxycodone-Acetaminophen 5-325mg 1 tab 2x daily prn from on-call coverage. He was informed by his team this would be tapered prior to discharge. As his mood symptoms improved, Ativan, perphenazine, and oxycodone-acetaminophen were weaned appropriately. On 04/08, Perphenazine was discontinued. Vusdbhji87/[id number], Ativan was tapered and discontinuedon 04/29. Oxycodone- Acetaminophen 5-325mg changed to 1 tab daily prn on 04/18 and discontinued by 04/29. During this hospitalization patient was offered diagnostic assessment, therapeutic activity groups,and education on his psychiatric condition and treatment options, inclusive of both medication and Electro Convulsive Therapy. The patient tolerated medications and the ECT procedures without side effects. Throughout the hospitalization the patient remained compliant with medications, participated intermittently in the group therapies and improved substantially during this hospital stay. He had atotal of 12 ECT treatments, concluding on 05/03. No disruptive or self-injurious behavior occurred. Residual symptoms include modest rumination about living situation, effect on daughter. At discharge, patient was future oriented and planned to move into an apartment closer to his daughter and possibly volunteer. Patient denied suicidal ideation. Patient participated actively in discharge planning. Mr. Santiago responded to ECT course of 12 sessions. Nortriptyline 100 mg daily, with blood level of87, is intended to serve a prophylaxis of his depression. Condition on Discharge: Improved Mental Status Exam on Discharge: Casually dressed in street clothes, engages easily, modest eye contact, cooperative, not complaining, though asks a number of times to have Ativan on discharge. Speech fluent. Mood mildly dysphoric, affect somewhat subdued. Thought logical, optimistic. Without delusions or hallucinations. Denies SI. Insight and judgment fair to good. Discharge Medications: Shahnaz Santiago Home Medication Instructions NANETTE:[id number] Printed on:05/06/112023 Medication Information aspirin chewable 81 mg tablet Take 81 mg by mouth daily. clopidogrel (PLAVIX) 75 mg tablet Take 1 Tab by mouth daily for 14 days. exenatide (BYETTA) 10 mcg/0.04 mL injection Inject 0.04 mL into the skin 2 times daily with meals for 14 days. Fenofibrate Nanocrystallized (TRICOR) 145 mg Tab Take 1 Tab by mouth daily for 14 days. glipiZIDE (GLUCOTROL) 5 mg CR tablet Take 1 Tab by mouth daily for 14 days. lisinopril (PRINIVIL, ZESTRIL) 10 mg tablet Take 1 Tab by mouth daily for 14 days. metformin (GLUCOPHAGE) 1,000 mg tablet Take 1 Tab by mouth 2 times daily for 14 days. Indications: TYPE 2 DIABETES MELLITUS nadolol (CORGARD) 20 mg tablet Take 1 Tab by mouth daily for 14 days. Indications: HYPERTENSION nortriptyline (PAMELOR) 50 mg capsule Take 2 Caps by mouth at bedtime for 14 days. Indications: DEPRESSION zolpidem (AMBIEN) 10 mg tablet Take 1 Tab by mouth at bedtime for 14 days. Disposition: To new apt near daughter in [facility] Discharge Plans/Follow-up Appointments: - Please keep your appointment on May 05 at 5pm with psychotherapist Vineet Caro. [address] [place] [address]. . - Please keep your appointment on May 22 at 1pm for medication management with Iggy Tenorio MD at [address] . - Follow-up with Dr. Hampton (PCP) in [facility] on June 10. Mental Health Crisis Services: [facility] Prescriptions sent to [facility] in [facility]. Total time spent on day of discharge: 40 min Mary Jauregui MD Attending Psychiatrist cc: Iggy Tenorio MD [place], [place] documented in this encounter Discharge Instructions * Discharge Instructions* Josue Ward MD - 05/05/2011 11:42 EST Additional Medication Instructions: Do not use alcohol Do no use illicit drugs Do not take any medications that were not prescribed Consult with a physician before starting any new herbal supplements or [id number] medications, as some of these may interact with your prescribed medication. Discharge Plans/Follow-up Appointments: - Please keep your appointment on May 05 at 5pm with psychotherapist Vineet Caro. [address] [place] [address]. . - Please keep your appointment on May 22 at 1pm for medication management with Iggy Tenorio MD at [address] . - Follow-up with Dr. Hampton (PCP) in [facility] on June 10. Mental Health Crisis Services: [facility] Prescriptions sent to Mis Campbell in [facility]. documented in this encounter Medications at Time of Discharge [...] 2 DIABETES MELLITUS nadolol (CORGARD) 20 mg tabletIndications:hyperte nsion Take 20 mg by mouth daily. Indications: HYPERTENSION nicotine polacrilex (NICORETTE) 4 mg gumIndications:nicotine withdrawal symptoms Take 4 mg by mouth as needed. Indications: NICOTINE WITHDRAWAL SYMPTOMS nortriptyline (PAMELOR) 50 mg capsuleIndications:depres stephania Take 100 mg by mouth at bedtime. Indications: DEPRESSION clopidogrel (PLAVIX) 75 mg tablet Take 1 Tab by mouth daily for 14 days. 14 Tab 1 05/05/2011 05/19/2011 exenatide (BYETTA) 10 mcg/0.04 mL injection Inject 0.04 mL into the skin 2 times daily with meals for 14 days. 1.12 mL 1 05/05/2011 05/19/2011 Fenofibrate Nanocrystallized (TRICOR) 145 mg Tab Take 1 Tab by mouth daily for 14 days. 14 Tab 1 05/05/2011 05/19/2011 glipiZIDE (GLUCOTROL) 5 mg CR tablet Take 1 Tab by mouth daily for 14 days. 14 Tab 1 05/05/2011 05/19/2011 lisinopril (PRINIVIL, ZESTRIL) 10 mg tablet Take 1 Tab by mouth daily for 14 days. 14 Tab 1 05/05/2011 05/19/2011 metformin (GLUCOPHAGE) 1,000 mg tabletIndications:type 2 diabetes mellitus Take 1 Tab by mouth 2 times daily for 14 days. Indications: TYPE 2 DIABETES MELLITUS 28 Tab 1 05/05/2011 05/19/2011 nadolol (CORGARD) 20 mg tabletIndications:hyperte nsion Take 1 Tab by mouth daily for 14 days. Indications: HYPERTENSION 14 Tab 1 05/05/2011 05/19/2011 nortriptyline (PAMELOR) 50 mg capsuleIndications:depres stephania Take 2 Caps by mouth at bedtime for 14 days. Indications: DEPRESSION 28 Cap 1 05/05/2011 05/19/2011 zolpidem (AMBIEN) 10 mg tablet Take 1 Tab by mouth at bedtime for 14 days. 14 Tab 1 05/05/2011 05/19/2011 documented as of this encounter Ordered Prescriptions Prescription Sig Dispensed Refills Start Date End Da te zolpidem (AMBIEN) 10 mg tablet Take 1 Tab by mouth at bedtime for 14 days. 14 Tab 1 05/05/2011 05/19/2011 nortriptyline (PAMELOR) 50 mg capsuleIndications:depres stephania Take 2 Caps by mouth at bedtime for 14 days. Indications: DEPRESSION 28 Cap 1 05/05/2011 05/19/2011 nadolol (CORGARD) 20 mg tabletIndications:hyperte nsion Take 1 Tab by mouth daily for 14 days. Indications: HYPERTENSION 14 Tab 1 05/05/2011 05/19/2011 metformin (GLUCOPHAGE) 1,000 mg tabletIndications:type 2 diabetes mellitus Take 1 Tab by mouth 2 times daily for 14 days. Indications: TYPE 2 DIABETES MELLITUS 28 Tab 1 05/05/2011 05/19/2011 lisinopril (PRINIVIL, ZESTRIL) 10 mg tablet Take 1 Tab by mouth daily for 14 days. 14 Tab 1 05/05/2011 05/19/2011 glipiZIDE (GLUCOTROL) 5 mg CR tablet Take 1 Tab by mouth daily for 14 days. 14 Tab 1 05/05/2011 05/19/2011 Fenofibrate Nanocrystallized (TRICOR) 145 mg Tab Take 1 Tab by mouth daily for 14 days. 14 Tab 1 05/05/2011 05/19/2011 exenatide (BYETTA) 10 mcg/0.04 mL injection Inject 0.04 mL into the skin 2 times daily with meals for 14 days. 1.12 mL 1 05/05/2011 05/19/2011 clopidogrel (PLAVIX) 75 mg tablet Take 1 Tab by mouth daily for 14 days. 14 Tab 1 05/05/2011 05/19/2011 documented in this encounter Discharge Disposition Disposition Code Departure Means Destination Home or Self Care documented in this encounter Progress Notes * NUTRITION TEACHER, LIYA 2 - 07/23/2011 1031 EDT * Community Development Officer, Liya - 05/13/2011 0839 EST * Katarzyna Rincon CSW - 05/06/2011 1451 EST Social Work Progress Note Intervention/Service: Discharge Note Discharged on 05/05/11 to the care of his daughter Nkechi with follow-up appointments in place. He expressed some anxiety about leaving after an extended hospital stay, but he had no more thoughts ofself harm and he was future oriented and improved in mood and spirit. * Tamika Cordero - 05/05/2011 1024 EST Active Multi-Disciplinary problems: NUTRITION [316781] (04/07/11) Patient Active Problem List Diagnoses ??? Diabetes mellitus ??? Major depression ??? CAD (coronary artery disease) ??? Nephrolithiasis Data: Remained somewhat depressed and anxious about discharge today. Stated that he felt much better at time of discharge. Fingerstick was 120 at 0803. Packed his belongings and [place] and needles were returned to patient. Medications were called into the [facility] in [facility]. Was discharged by Dr. Ward. Action: Assess for suicidal ideation. Offer one to one. Utilize teaching opportunities. Explore discharge planning. Review discharge instructions with the patient: include medications and his outpatient appointments. Give a copy to the patient, Return all belongings. Response: Was given 2 copies of the discharge instructions. The medications and appointments were reviewed first. All belongings were returned to the patient. Did not verbalize suicidal ideation. The patient'sdaughter came to drive her father home to [facility]. Left at 1217 with belongings and his daughter. Tamika Cordero RN 05/05/2011 10:25 * Shahnaz Lou MD - 05/04/2011 1229 EST ATTENDING SURVEYING TECHNICIAN NOTE REASON FOR HOSPITALIZATION: Depression HOSPITAL DAY: 43 INTERIM HISTORY: Had ECT Thursday, slept 7 hours last night after taking ambien and atarax. Says he feels much better than when I came in and is looking forward to discharge sometime this coming week. Plans to have an apartment in [facility] near his daughter. Says he has been feeling a little anxious at the prospect of leaving the hospital. EXAM: Elderly looking man with slightly disheveled pike hair and pike jacobo, glasses, lying on bed resting in dark room He is alert, cooperative,and pleasant. No psychomotor slowing. Speech: essentially normal RRV. Mood: not bad 8/10 (10 best). Affect: appears more energetic and brighter today. Somewhat anxious but able to control it. Thought process: coherent, linear. Thought content: Future-oriented. No SI. No evidence of psychosis. Insight and judgment: fair to good. Does not appear impulsive. Oriented. ASSESSMENT: Major Depression-Recurrent with Psychotic Features PLAN: Continue current regimen Discharge next week Shahnaz Lou MD Attending Psychiatrist housing liaison Pager [phone] * Shahnaz Lou MD - 05/03/2011 1346 EST ATTENDING SURVEYING TECHNICIAN NOTE REASON FOR HOSPITALIZATION: Depression HOSPITAL DAY: 42 INTERIM HISTORY: Had ECT yesterday, slept 7 hours last night. Says he feels much better than when I came in and is looking forward to discharge sometime this coming week. Plans to have an apartment[place] [facility] near his daughter. EXAM: Elderly looking man with slightly disheveled pike hair and pike jacobo, glasses, lying on bed resting in dark room He is alert, cooperative,and pleasant. No psychomotor slowing. Speech: essentially normal RRV. Mood: not bad 8/10 (10 best). Affect: appears more energetic and brighter today. Somewhat anxious but able to control it. Thought process: coherent, linear. Thought content: Future-oriented. No SI. No evidence of psychosis. Insight and judgment: fair to good. Does not appear impulsive. Oriented. ASSESSMENT: Major Depression-Recurrent with Psychotic Features PLAN: Continue current regimen Discharge next week Shahnaz Lou MD Attending Psychiatrist housing liaison Pager [phone] * Abair, Alice Cespedes RN - 05/03/2011 0992 EST Active Multi-Disciplinary problems: ALTERED THOUGHT PROCESSES [467817] (03/22/11) ALTERATION IN SLEEP [466558] (03/23/11) KNOWLEDGE DEFICIT [857646] (04/07/11) NUTRITION [506561] (04/07/11) RISK FOR INFECTION [148936] (04/07/11) GLYCEMIA IMBALANCE [770548] (04/07/11) ANXIETY [075780] (04/09/11) Ineffective Coping [857959] (04/09/11) SELF CARE DEFICIT [580347] (04/09/11) ALTERATION IN MOOD [028711] (04/09/11) Discharge Planning [931681] (04/27/11) Data: The pt is unable to determine if ECT was helpful because of being taken off Perphenazine at the same time. He is planning for discharge on Thursday. Denies pain and denies thoughts of self harm. Eating OK, slept well last night, has been attending to ADL's. He believes his blood glucose is more stable on . Spoke of moving in next to daughter,his only one who he wants to be close to both emotionally and location hale. He is annoyed by the verbal outbursts of another patient. Action: Maintained on routine observations and provided safety in environment of care. Assessed pain and thoughts of Suicide. Monitored behavior and functioning. Provided support and focused on pt's strengths. Administered medication and assessed efficacy and SE. Response: Pt told his story, says he is doing well but needs to get things together in terms of discharge apprehensive about leaving and getting set up on the outside. Sates just leaving here is tricky enough without the rest of it coming down. Alice Fatima RN 05/03/2011 9:18 * Toño, Mary Cespedes MD - 05/02/2011 1448 EST Inpatient Psychiatry Daily Progress Note 05/02/2011 Admit Date: 03/22/2011 Hospital day: LOS: 41 days Legal Status: Legal status: Voluntary Observation Level: Observation / visual check: Routine (Q hour day / elaina, Q 1/2 hour night) Locus/Risk of Harm: Current locus of harm: 3 Reason for Admission/Chief Complaint: S/p Ambien overdose (originally involuntarily hospitalized) Clinical Update/24-hour Events: Pt was in the community room reading his book (A Perfect Storm) this morning. Spirits are generally good. He noted more tension yesterday, including physically feeling of a knot in his stomach. He dealt with it by reading, watching TV. I also encouraged other distraction techniques, including deep focused breathing. He read me 4 positive things he envisioned doing outside of the hospital, which largely included spending time with and helping his family (daughter, granddaughter, etc). Final ECT (#12) today. Pt happy treatments are ending. Mood is improved, 7-8/10 (10 best), althoughhe still can easily focus on the negative (e.g., the downside of the new apt, etc). Overall though he is feeling more ready for d/c. Says he wants to get a new PCP and is upset his current one won't prescribe Ambien. I told him he might have to continue to go to PCP if he can't get an appt with new PCP for a while because we can only prescribe for a limited amount (2 weeks, a month or so) at discharge. His daughter is working on finding a new PCP. Social work will follow-up with her. Pt encouraged to get off the unit today. Social History Update: Pt talked with daughter and she found a new apt (different from the one still found the other day), because it is in a better part of town. Current Facility-Administered Medications Medication Route Frequency ??? ascorbic acid (VITAMIN C) tablet 500 mg Oral DAILY ??? exenatide (BYETTA) injection 10 mcg Subcutaneous BID WC ??? calcium carbonate (TUMS) 200 mg calcium (500 mg) per chewable tablet Chew 1 Tab Oral QID PRN ? ? aluminum & magnesium hydroxide-simethicone (MYLANTA-DS) 400-400-40 mg/5 mL suspension 15 mLOral Q6H PRN ??? famotidine (PEPCID) tablet 20 mg Oral BID ??? sodium chloride 0.9 % flush 3 mL Intravenous PRN ??? ibuprofen (MOTRIN) tablet 600 mg Oral TID PRN ??? zolpidem (AMBIEN) tablet 10 mg Oral QHS ??? influenza vaccine [id number] (PF) (FLUZONE) 45 mcg (15 mcg x 3)/0.5 mL IM injection-syringe 0.5 mL Intramuscular ONCE ??? nortriptyline (PAMELOR) capsule 100 mg Oral QHS ??? aspirin chewable tablet 81 mg Oral DAILY ??? clopidogrel (PLAVIX) tablet 75 mg Oral DAILY ??? glipiZIDE (GLUCOTROL) CR tablet 5 mg Oral DAILY ??? lisinopril (PRINIVIL, ZESTRIL) tablet 10 mg Oral DAILY ??? metformin (GLUCOPHAGE) tablet 1,000 mg Oral BID ??? Fenofibrate Nanocrystallized (TRICOR) tablet 145 mg Oral DAILY ??? dextrose 50 % solution 12.5 g Intravenous PRN ??? glucagon (human recombinant) injection 1 mg Intramuscular PRN ??? nicotine inhaler (delivery device) Inhalation PRN ??? nicotine (NICOTROL) 10 mg inhaler 1 Inhaler Inhalation Q2H PRN ??? nadolol (CORGARD) tablet 20 mg Oral DAILY Review of Systems: Knot in his stomach from anxiety, improved. Slept fine. No complaints Mental Status Exam: Elderly looking man, looks well groomed, with pike hair and pike jacobo, glasses, reading a book when I first met him. He is alert, cooperative, forthcoming, and pleasant. No psychomotor slowing. Speech: essentially normal RRV. Mood: mellow, not too anxious 7/10 (10 best). Affect: appears brighter, less dysphoric and anxious than earlier this week. Thought process: coherent, linear. Thought content: Future-oriented. Less negative despite his anxiety. No SI. No evidence of psychosis. Insight and judgment: fair to good. Does not appear impulsive. Oriented. 2/3 short-term recall. BP 104/61 Pulse 78 Temp(Src) 36.6 ??C (97.9 ??F) (Tympanic) Resp 13 Ht 185.4 cm (72.99) Wt 100.562 kg (221 lb 11.2 oz) BMI 29.26 kg/m2 SpO2 96% Data Review: Labs: Recent Results (from the past 24 hour(s)) GLUCOSE, GLUCOMETER Collection Time 05/01/11 1657 Component Value Range Glucose, Fingerstick 153 (*) 70 - 100 (mg/dl) Rodent Control Worker ID [id number] GLUCOSE, GLUCOMETER Collection Time 05/01/11 2051 Component Value Range Glucose, Fingerstick 184 (*) 70 - 100 (mg/dl) Rodent Control Worker ID [id number] GLUCOSE, GLUCOMETER Collection Time 05/02/11 0830 Component Value Range Glucose, Fingerstick 125 (*) 70 - 100 (mg/dl) Rodent Control Worker ID [id number] GLUCOSE, GLUCOMETER Collection Time 05/02/11 1155 Component Value Range Glucose, Fingerstick 283 (*) 70 - 100 (mg/dl) Rodent Control Worker ID [id number] Assessment/Formulation: Mr. Santiago is a 60-year-old man who has had recurrent depressive episodes (at least 2 hospitalizations) and recent Ambien OD since his second in 2009. Final ECT (#12) today. He has improved significantly since admission with ECT and nortriptyline. MADRS score wentfrom 43 to 8. Mood is brighter, no confusion, less anxiety, although he still has anticipatory anxiety about the future. He is starting to better identify positive things in his life and is focused on giving back to his family and spending more time with them. He also looks forward to therapy as anoutpatient. Diagnosis: Terry I: Major depression, recurrent, with psychotic features. Terry II: Deferred Terry III: HTN, CAD s/p PCI with stent, type II DM, h/o nephrolithiasis, s/p cholecystectomy Plan: - Complete inpatient ECT #12 today. Continue nortriptyline at current dosage. - Discourage daytime napping, even if he is tired, to regulate his sleep cycle. - Encourage deep breathing and other stress-relieving techniques. - Encourage group therapy attendance and avoiding isolating in his room. - Pt will continue to write down positive things he envisions when he leaves the hospital (to help with dwelling on the negative). - Encourage time off the unit. - No benzos or Percocet. - Appt with PCP pending. Social work has set up follow-up appts with a therapist and psychiatrist. - D/C on Friday 05/05. The following risk/benefits of treatment were discussed with the patient: No new treatment changes. Discharge Plan: Thursday, 05/05. Josue Ward MD 05/02/2011 14:48 Psychiatry Attending Attestation: I have personally seen and examined the patient today. Treatment plan reviewed with the team. I spent a total of 30 minutes with this patient in direct floor time and 17 minutes of that time was spent in counseling and coordination of care regarding status of symptoms, review treatment progress, discharge planning. I agree with and have edited in italics the findings and plan of care as documented in the resident's note. MARY JAUREGUI MD Pager [phone] Attending, Inpatient Psychiatry, [facility] * Mary Jauregui MD - 05/01/2011 2013 EST Inpatient Psychiatry Daily Progress Note 05/01/2011 Admit Date: 03/22/2011 Hospital day: LOS: 40 days Legal Status: Legal status: Voluntary Observation Level: Observation / visual check: Routine (Q hour day / elaina, Q 1/2 hour night) Locus/Risk of Harm: Current locus of harm: 3 Reason for Admission/Chief Complaint: S/p Ambien overdose (originally involuntarily hospitalized) Clinical Update/24-hour Events: Pt was noticeably brighter today compared with yesterday. He wantedAtivan and Percocet last night because he was anxious that he would not be able to sleep (but reports he slept well). He did not complain today about not having these medications available, and we discussed how he needs to learn to manage his anxiety without relying on medication. We practiced deepbreathing, which he found helpful, and he looked forward to outpatient therapy to discuss long standing issues and regrets he has about his relationships with his and daughter. He shared 5 things he liked about himself, including that he listens to people and is compassionate, although he noted he has trouble with some of these things when he is not feeling well. He focused much on wanting to give back to his daughter and others, and he even talked about volunteering or finding jobs in which he felt like he was contributing to others. He still has much anxiety about discharge and have to fend for himself, (planning meals, etc). He did not want to see a supervisor malt house when offered (he already had seen one and said he had a book to help him with meals). 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 He also spoke with pride about taking a paint spray tender class (which required an application and interview process) previously, and he discussed how he intends to look for other activities/work to remain productive outside the hospital. Current Facility-Administered Medications Medication Route Frequency ??? ascorbic acid (VITAMIN C) tablet 500 mg Oral DAILY ??? exenatide (BYETTA) injection 10 mcg Subcutaneous BID WC ??? calcium carbonate (TUMS) 200 mg calcium (500 mg) per chewable tablet Chew 1 Tab Oral QID PRN ? ? aluminum & magnesium hydroxide-simethicone (MYLANTA-DS) 400-400-40 mg/5 mL suspension 15 mLOral Q6H PRN ??? famotidine (PEPCID) tablet 20 mg Oral BID ??? sodium chloride 0.9 % flush 3 mL Intravenous PRN ??? ibuprofen (MOTRIN) tablet 600 mg Oral TID PRN ??? zolpidem (AMBIEN) tablet 10 mg Oral QHS ??? influenza vaccine [id number] (PF) (FLUZONE) 45 mcg (15 mcg x 3)/0.5 mL IM injection-syringe 0.5 mL Intramuscular ONCE ??? nortriptyline (PAMELOR) capsule 100 mg Oral QHS ??? aspirin chewable tablet 81 mg Oral DAILY ??? clopidogrel (PLAVIX) tablet 75 mg Oral DAILY ??? glipiZIDE (GLUCOTROL) CR tablet 5 mg Oral DAILY ??? lisinopril (PRINIVIL, ZESTRIL) tablet 10 mg Oral DAILY ??? metformin (GLUCOPHAGE) tablet 1,000 mg Oral BID ??? Fenofibrate Nanocrystallized (TRICOR) tablet 145 mg Oral DAILY ??? dextrose 50 % solution 12.5 g Intravenous PRN ??? glucagon (human recombinant) injection 1 mg Intramuscular PRN ??? nicotine inhaler (delivery device) Inhalation PRN ??? nicotine (NICOTROL) 10 mg inhaler 1 Inhaler Inhalation Q2H PRN ??? nadolol (CORGARD) tablet 20 mg Oral DAILY Review of Systems: Some nausea, but eating well. Knot in his stomach from axiety. Slept well. Mental Status Exam: Elderly looking man with slightly disheveled pike hair and pike jacobo, glasses,lying on bed resting in dark room this morning. He is alert, cooperative, forthcoming, and pleasant. No psychomotor slowing. Speech: essentially normal RRV. Mood: not bad 7/10 (10 best). Affect: appears more energetic and brighter today. Somewhat anxious but able to control it. Thought process: coherent, linear. Thought content: Future-oriented. Less negative despite his anxiety No SI. No evidence of psychosis. Insight and judgment: fair to good. Does not appear impulsive. Oriented. BP 122/57 Pulse 79 Temp(Src) 36.4 ??C (97.5 ??F) (Tympanic) Resp 16 Ht 185.4 cm (72.99) Wt 100.562 kg (221 lb 11.2 oz) BMI 29.26 kg/m2 SpO2 98% Data Review: Labs: Recent Results (from the past 24 hour(s)) GLUCOSE, GLUCOMETER Collection Time 04/30/11 2104 Component Value Range Glucose, Fingerstick 142 (*) 70 - 100 (mg/dl) Rodent Control Worker ID [id number] GLUCOSE, GLUCOMETER Collection Time 05/01/11 0801 Component Value Range Glucose, Fingerstick 124 (*) 70 - 100 (mg/dl) Rodent Control Worker ID [id number] GLUCOSE, GLUCOMETER Collection Time 05/01/11 1203 Component Value Range Glucose, Fingerstick 124 (*) 70 - 100 (mg/dl) Rodent Control Worker ID [id number] GLUCOSE, GLUCOMETER Collection Time 05/01/11 1657 Component Value Range Glucose, Fingerstick 153 (*) 70 - 100 (mg/dl) Rodent Control Worker ID [id number] Assessment/Formulation: Mr. Santiago is a 60-year-old man who has had recurrent depressive episodes (at least 2 hospitalizations) and recent Ambien OD since his second in 2009. He was brighter today and future-oriented, despite his anxiety last night and initial disappointment about not having lorazepam and Percocet. He understands he must be able to better deal with anxiety and he showed good insight about his feelings and goals for discharge. He was able to identify positive qualities in himself and he spoke at length about wanting to give back to his daughter and expect less from her. He looks forward to therapy to deal with guilt related to his and daughter. MADRS score today by Vineet Efren was 8. ECT #12 tomorrow. He decided against going out on pass today because he didn't feel well but will consider trying again tomorrow. Diagnosis: Terry I: Major depression, recurrent, with psychotic features. Terry II: Deferred Terry III: HTN, CAD s/p PCI with stent, type II DM, h/o nephrolithiasis, s/p cholecystectomy Plan: - Continue ECT, last treatment (#12) on Tuesday 05/02. Continue nortriptyline at current dosage. - Discourage daytime napping, even if he is tired, to regulate his sleep cycle. - Encourage deep breathing and other stress-relieving techniques. - Encourage group therapy attendance and avoiding isolating in his room. - Pt will write down 5 positive things he envisions when he leaves the hospital (to help with dwelling on the negative). - Encourage time off the unit. The following risk/benefits of treatment were discussed with the patient: No new treatment changes. Discharge Plan: Thursday, 05/05. Josue Ward MD 05/01/2011 20:13 Psychiatry Attending Attestation: I have personally seen and examined the patient today. Treatment plan reviewed with the team. I spent a total of 30 minutes with this patient in direct floor time and 17 minutes of that time was spent in counseling and coordination of care regarding status of symptoms, reassurance and encouragement, discharge/aftercare planning. I agree with and have edited in italics the findings and plan of care as documented in the resident's note. MARY JAUREGUI MD Pager [phone] Attending, Inpatient Psychiatry, [facility] * Tamika Cordero - 05/01/2011 1517 EST Active Multi-Disciplinary problems: ALTERED THOUGHT PROCESSES [247081] (03/22/11) ALTERATION IN SLEEP [972524] (03/23/11) KNOWLEDGE DEFICIT [159834] (04/07/11) NUTRITION [289213] (04/07/11) RISK FOR INFECTION [186634] (04/07/11) GLYCEMIA IMBALANCE [240566] (04/07/11) ANXIETY [552340] (04/09/11) Ineffective Coping [250218] (04/09/11) SELF CARE DEFICIT [712264] (04/09/11) ALTERATION IN MOOD [421425] (04/09/11) Discharge Planning [866780] (04/27/11) Patient Active Problem List Diagnoses ??? Diabetes mellitus ??? Major depression ??? CAD (coronary artery disease) ??? Nephrolithiasis Data: Will be npo after midnight for ECT in the morning. Give no benzos after 1900. Will need a maria isabel prior to leaving for treatment. [place] ready for discharge on Thursday and continued to acknowledgethat it will be difficult to leave. Was social with a few select peers. Ate breakfast in the television room. Finger stick at 08 = 124 and at noon was 124. Did not eat lunch. Rested in bed most of the day. Action: Assess for suicidal ideation. Offer one to one. Encourage groups. Utilize teaching opportunities. Explore plans for discharge. Give no benzos after 1900. Will need a maria isabel prior to leaving for ECT. Keep npo after midnight for ECT. Response: Was less depressed and did not express suicidal ideation. Remained future oriented. Tamika Cordero, NAHUN 05/01/2011 14:17 * Nixon Schwartz, [facility] - 05/01/2011 1309 EST [facility] Electroconvulsive Therapy Service Cognition & Depression Rating Date of Service: 05/01/2011 Time: 1300 Duration of Service: 20 minutes Folstein MMSE Total Score (Max. Total=27): 27 Level of Consciousness: Alert. Reasoning: intact Judgement: good Fund of Knowledge: bilingual inside sales representative Diagnosis code: 296.34 Total MADRS Score (Very Severe 44; Severe 31; Moderate 25; Mild 15; Recovered 7): 8 Subjective Rating of Cognitive Dysfunction Anterograde Amnesia: None Retrograde Amnesia: None Assessment: No objective evidence of cognitive dysfunction. Mood: slightly depressed but can shift easily. Affect: mildly restricted (this may be partially impacted by his having a cold). Patient is slightly anxious about discharge. He seems enthusiastic about seeing a counselor after he is discharged. Patient has sustained very mild depression over the past two weeks. Since his initial MADRS screening on 03/26/2011, his scores have improved - 43, 40, 28, 17, 9, 8. He is s/p 11 R/Unilateral Index ECT. His next treatment is scheduled for 05/02/2011. Plan: Continue to monitor cognition and level of depression and Discuss findings with psychiatrist administering ECT: Dr. Walter. JOE PIERRE 05/01/2011 13:09 * Kim Davis - 04/30/2011 1937 EST Open Art S/O: Shahnaz attended the [employer] group and worked on coloring [email or web address]. He chatted with another patient about their mutual experiences of feeling exhausted after ECT. A: Engaged in art work, connecting with another patient about shared experiences. P: Continue to attend groups. * Mary Jauregui MD - 04/30/2011 1816 EST Inpatient Psychiatry Daily Progress Note 04/30/2011 Admit Date: 03/22/2011 Hospital day: LOS: 39 days Legal Status: Legal status: Voluntary Observation Level: Observation / visual check: Routine (Q hour day / elaina, Q 1/2 hour night) Locus/Risk of Harm: Current locus of harm: 3 Reason for Admission/Chief Complaint: S/p Ambien overdose (originally involuntarily hospitalized) Clinical Update/24-hour Events: Pt was sleeping when I saw him in the afternoon. He reports he tookthe apt his daughter found for him--said it sounds nice. His apprehension about discharge from the hospital is growing, though. He worries about his finances. At one point he wonders if he should be ain group home, but knows he is too young. He feels that way in part because his used to handle many things for him and he becomes anxious when thinking about having to go shopping and handling affairs he never used to. He admits to not having fully dealt with grief of his dying; this discussion stemmed in part from his attendance timmy group yesterday. He feels some guilt, perhaps because he notes there were times he wanted to leave his . He knows he focuses on the negative when this is pointed out to him. He becomes anxious and knows there are positives in his life, which he wrote down the other day. We also discussed his writing down 5 things he likes about himself. He knows he will need to deal with his grief and anxiety in outpatient therapy. Overall, mood is a bit down today, but reported still as 6/10 (10 best). ECT tired him out today but he thought he would feel better if he left his room, which we encouraged. Social History Update: Pt will [facility] into [facility] that is located near his daughter. Current Facility-Administered Medications Medication Route Frequency ??? ascorbic acid (VITAMIN C) tablet 500 mg Oral DAILY ??? exenatide (BYETTA) injection 10 mcg Subcutaneous BID WC ??? calcium carbonate (TUMS) 200 mg calcium (500 mg) per chewable tablet Chew 1 Tab Oral QID PRN ? ? aluminum & magnesium hydroxide-simethicone (MYLANTA-DS) 400-400-40 mg/5 mL suspension 15 mLOral Q6H PRN ??? famotidine (PEPCID) tablet 20 mg Oral BID ??? sodium chloride 0.9 % flush 3 mL Intravenous PRN ??? ibuprofen (MOTRIN) tablet 600 mg Oral TID PRN ??? zolpidem (AMBIEN) tablet 10 mg Oral QHS ??? influenza vaccine [id number] (PF) (FLUZONE) 45 mcg (15 mcg x 3)/0.5 mL IM injection-syringe 0.5 mL Intramuscular ONCE ??? nortriptyline (PAMELOR) capsule 100 mg Oral QHS ??? aspirin chewable tablet 81 mg Oral DAILY ??? clopidogrel (PLAVIX) tablet 75 mg Oral DAILY ??? glipiZIDE (GLUCOTROL) CR tablet 5 mg Oral DAILY ??? lisinopril (PRINIVIL, ZESTRIL) tablet 10 mg Oral DAILY ??? metformin (GLUCOPHAGE) tablet 1,000 mg Oral BID ??? Fenofibrate Nanocrystallized (TRICOR) tablet 145 mg Oral DAILY ??? dextrose 50 % solution 12.5 g Intravenous PRN ??? glucagon (human recombinant) injection 1 mg Intramuscular PRN ??? nicotine inhaler (delivery device) Inhalation PRN ??? nicotine (NICOTROL) 10 mg inhaler 1 Inhaler Inhalation Q2H PRN ??? nadolol (CORGARD) tablet 20 mg Oral DAILY Review of Systems: Mouth and throat dry but no major physical complaints. Sleep and appetite fair. Mental Status Exam: Elderly looking man with slightly disheveled pike hair and pike jacobo, glasses,lying on bed in dark room. He is cooperative, somewhat forthcoming. Mild psychomotor slowing. Speech: essentially normal RRV. Mood: thinking about things 6/10 (10 best). Affect: appears more dysphoric. Moping. Somewhat anxious. Thought process: coherent, linear. Thought content: No SI. No evidence of psychosis. Focuses on the negative, worries about finances, details of living outside the hospital. Insight and judgment: fair at best. Does not appear impulsive. Grossly oriented. BP 110/67 Pulse 84 Temp(Src) 36.1 ??C (97 ??F) (Tympanic) Resp 14 Ht 185.4 cm (72.99) Wt100.562 kg (221 lb 11.2 oz) BMI 29.26 kg/m2 SpO2 97% Data Review: Labs: Recent Results (from the past 24 hour(s)) GLUCOSE, GLUCOMETER Collection Time 04/29/11 2103 Component Value Range Glucose, Fingerstick 206 (*) 70 - 100 (mg/dl) Rodent Control Worker ID [id number] GLUCOSE, GLUCOMETER Collection Time 04/30/11 0832 Component Value Range Glucose, Fingerstick 105 (*) 70 - 100 (mg/dl) Rodent Control Worker ID [id number] GLUCOSE, GLUCOMETER Collection Time 04/30/11 1222 Component Value Range Glucose, Fingerstick 169 (*) 70 - 100 (mg/dl) Rodent Control Worker ID [id number] GLUCOSE, GLUCOMETER Collection Time 04/30/11 1655 Component Value Range Glucose, Fingerstick 155 (*) 70 - 100 (mg/dl) Rodent Control Worker ID [id number] Assessment/Formulation: Mr. Santiago is a 60-year-old man who has had recurrent depressive episodes (at least 2 hospitalizations) and recent Ambien OD since his second in 2009. ECT #11 today. He committed to a new apartment today, which perhaps makes discharge form the hospital more real, as he notes he is thinking about details of life outside of the hospital more. Some of this worries him quite a bit and makes him down. He knows he still has much work to do with respect to his depression and anxiety, including understanding his grief around his 's . He likely will have some improvement in mood once he actually leaves the hospital as he notes his boredom is growing in thehospital. His MADRS score will be assessed tomorrow to assess depression. Some of his anxiety mightalso result from the discontinuation of lorazepam, which he admitted to relying on a few days ago. He has not mentioned any complaints about stopping either lorazeapm or Percocet. He agrees with one more ECT treatment on Thursday before discharge on Thursday, which allows him and his family to adequatel y prepare for his move into his new apt. Diagnosis: Terry I: Major depression, recurrent, with psychotic features. Terry II: Deferred Terry III: HTN, CAD s/p PCI with stent, type II DM, h/o nephrolithiasis, s/p cholecystectomy Plan: - Continue ECT, last treatment (#12) on Tuesday 05/02. Continue nortriptyline at current dosage. - Continue lightbox therapy for now: 30 minutes each morning before 10 am. - Discourage daytime napping, even if he is tired, to regulate his sleep cycle. - Encourage group therapy attendance and avoid isolating in his room. - Follow-up on task: pt will write down 5 things he likes about himself (to help with dwelling on the negative). The following risk/benefits of treatment were discussed with the patient: No new treatment changes. Discharge Plan: Thursday, 05/05. Josue Ward MD 04/30/2011 18:16 Psychiatry Attending Attestation: I have personally seen and examined the patient today. Treatment plan reviewed with the team. I spent a total of 30 minutes with this patient in direct floor time and 17 minutes of that time was spent in counseling and coordination of care regarding status of symptoms, discharge planning. I agree with and have edited in italics the findings and plan of care as documented in the resident's note. MARY JAUREGUI MD Pager [phone] Attending, Inpatient Psychiatry, [facility] * Stacy Holder - 04/29/2011 1911 EST Grief and Anger Group: S/O: Pt watched the DVD Tear Soup and participated in the discussion of losses. Pt stated that the DVD had made him think about whether he has finished grieving for somebody in particular or not. Andhe was stating probably not even though he would prefer not to go there. A: increasing coping skills, identifying losses, engaged, increase in insight. P: To continue to participate in group and increase coping skills. * Mary Jauregui MD - 04/29/2011 1801 EST 04/29/2011 ATTENDING NOTE PROBLEM (ID and CC): depression HOSPITAL DAY: LOS: 38 days HISTORY: Seen today in room, using light box, finding this helpful, imagining self lying on beach somewhere. Rates mood as 7/[address] Walter who would like to have his MADRAS a but lower suggesting one or two more treatment. Later had phone conference with daughter who is unable to come in today, with attending and Sergey BEAN. She found nice apt near her home for less than he currently pays. He was ambivalent and worried. He would like to leave here early, she would like to have weekend to prepare, move his things etc. He will visit website to see apt. EXAM: More pulled together though still wearing hospital clothes. Some smiling. During phone call, eyes downcast much of time, expressing reservations about plan, but not offering much in way of alternatives. Much less negativity. Mood improved, affect somewhat brighter. Thought logical. Without delusions or hallucinations. Denies SI now. Insight and judgment fair. [place] [address] Ward BP 101/63 Pulse 81 Temp(Src) 36.2 ??C (97.2 ??F) (Tympanic) Resp 16 Ht 185.4 cm (72.99) Wt 100.562 kg (221 lb 11.2 oz) BMI 29.26 kg/m2 SpO2 99% ASSESSMENT: MDE, severe. Responding to ECT. He and daughter both relate his depression to perphenazine. She does not feel he is much better, though he reasonably self-assesses as 70% improved. I would agree objectively with this. Dr. Peck would like to have one or two additional treatments, in part toprotect against relapse. His indecision ad difficulty with motivation are still fairly prominent. PLAN: 1. Check apt on line. 2. ECT in AM, reassess 3. Con't Nortriptyline 4. Discharge Thursday or Thursday I have personally seen and examined the patient today. Treatment plan reviewed with the team. I spent a total of50 minutes with this patient in direct floor time and35 minutes of that time was spent in counseling and coordination of care regarding status of symptoms, review of treatment progress and recommendations, coordination with family and discharge planning. MARY JAUREGUI MD Pager [phone] Attending, Inpatient Psychiatry, [facility] . * Fantasma Barrera - 04/28/2011 2050 EST S/O Pt. attended Leisure activity group for 45 minutes. Pt. sat quietly and read a book for most ofgroup. Pt. chimed in with appropriate comments while others were having conversations. Pt. was encouraged to join the larger group but he politely declined. Pt. mentioned that he is feeling better asa result of his ECT. A/calm ,composed, inc soc P/ continue attending groups * Mary Jauregui MD - 04/28/2011 0593 EST Inpatient Psychiatry Daily Progress Note 04/28/2011 Admit Date: 03/22/2011 Hospital day: LOS: 37 days Legal Status: Legal status: Voluntary Observation Level: Observation / visual check: Routine (Q hour day / elaina, Q 1/2 hour night) Locus/Risk of Harm: Current locus of harm: 3 Reason for Admission/Chief Complaint: S/p Ambien overdose (originally involuntarily hospitalized) Clinical Update/24-hour Events: Pt began using phototherapy this weekend--reports it was fine. Had ECT #10 today. Feels a little anxious about moving to a new apt and discharge from hospital. Does not want to continue ECT as outpatient. He has an appt with a therapist Vineet Caro on May 05. He still fe els he needs Ativan to help calm down at times but we discussed the importance of stopping it before discharge and learning to manage his anxiety without medication. He agree to have it stopped aftertonight and we will stop Percocet tomorrow as well. He reports some sadness and anxiety at low levels and rates his mood as 6/10 (10 best). We have not set a discharge date yet as he might have another ECT treatment. MADRS score with me today was 11, but others have been administering it previously (last score last week was 9). Pt deniesany hallucinations, feelings of unreality. He reportedly had had delusions about his penis prior toadmission and he still expresses some concern about its reduction in size noticed over the past 2 years. He does not appear to be delusional about it, but he is concerned about it if he were to starta new relationship (he reports no sex drive currently). He denies any other physical complaints--improved since last week. Social History Update: Family meeting scheduled for 04/29 at 1:30. Current Facility-Administered Medications Medication Route Frequency ??? lorazepam (ATIVAN) tablet 0.5 mg Oral Daily PRN ??? oxycodone-acetaminophen (PERCOCET) 5-325 mg per tablet 1 Tab Oral Daily PRN ??? ascorbic acid (VITAMIN C) tablet 500 mg Oral DAILY ??? exenatide (BYETTA) injection 10 mcg Subcutaneous BID WC ??? calcium carbonate (TUMS) 200 mg calcium (500 mg) per chewable tablet Chew 1 Tab Oral QID PRN ? ? aluminum & magnesium hydroxide-simethicone (MYLANTA-DS) 400-400-40 mg/5 mL suspension 15 mLOral Q6H PRN ??? famotidine (PEPCID) tablet 20 mg Oral BID ??? sodium chloride 0.9 % flush 3 mL Intravenous PRN ??? ibuprofen (MOTRIN) tablet 600 mg Oral TID PRN ??? zolpidem (AMBIEN) tablet 10 mg Oral QHS ??? influenza vaccine [id number] (PF) (FLUZONE) 45 mcg (15 mcg x 3)/0.5 mL IM injection-syringe 0.5 mL Intramuscular ONCE ??? nortriptyline (PAMELOR) capsule 100 mg Oral QHS ??? aspirin chewable tablet 81 mg Oral DAILY ??? clopidogrel (PLAVIX) tablet 75 mg Oral DAILY ??? glipiZIDE (GLUCOTROL) CR tablet 5 mg Oral DAILY ??? lisinopril (PRINIVIL, ZESTRIL) tablet 10 mg Oral DAILY ??? metformin (GLUCOPHAGE) tablet 1,000 mg Oral BID ??? Fenofibrate Nanocrystallized (TRICOR) tablet 145 mg Oral DAILY ??? dextrose 50 % solution 12.5 g Intravenous PRN ??? glucagon (human recombinant) injection 1 mg Intramuscular PRN ??? nicotine inhaler (delivery device) Inhalation PRN ??? nicotine (NICOTROL) 10 mg inhaler 1 Inhaler Inhalation Q2H PRN ??? nadolol (CORGARD) tablet 20 mg Oral DAILY Review of Systems: Denies memory problems. No reported sleep problems. No physical complaints today, feeling a little anxious though. Mental Status Exam: Elderly looking man with combed pike hair and pike jacobo, glasses, walking in the [place]. He appears well groomed. He is cooperative, somewhat forthcoming. No gross psychomotor abnormalities. Speech: essentially normal RRV. Mood: OK 6/10 (10 best). Affect: no signs of irritability. Mildly anxious, perhaps a bit dysphoric, with moments of brightening. Thought process: coherent,linear. Thought content: No SI. No evidence of psychosis. Expresses some lingering concerns (see update above). Seems a bit less negative. Insight and judgment: fair. Does not appear impulsive. Grossly oriented. BP 104/76 Pulse 78 Temp(Src) 36.1 ??C (97 ??F) (Tympanic) Resp 15 Ht 185.4 cm (72.99) Wt100.562 kg (221 lb 11.2 oz) BMI 29.26 kg/m2 SpO2 98% Data Review: Labs: Recent Results (from the past 24 hour(s)) GLUCOSE, GLUCOMETER Collection Time 04/27/11 205 Component Value Range Glucose, Fingerstick 256 (*) 70 - 100 (mg/dl) Rodent Control Worker ID [id number] GLUCOSE, GLUCOMETER Collection Time 04/28/11 0745 Component Value Range Glucose, Fingerstick 110 (*) 70 - 100 (mg/dl) Rodent Control Worker ID [id number] GLUCOSE, GLUCOMETER Collection Time 04/28/11 1221 Component Value Range Glucose, Fingerstick 250 (*) 70 - 100 (mg/dl) Rodent Control Worker ID [id number] GLUCOSE, GLUCOMETER Collection Time 04/28/11 1705 Component Value Range Glucose, Fingerstick 143 (*) 70 - 100 (mg/dl) Rodent Control Worker ID [id number] Assessment/Formulation: Mr. Santiago is a 60-year-old man who has had recurrent depressive episodes (at least 2 hospitalizations) and recent Ambien OD since his second in 2009. ECT #10 today. No physical complaints today and he appears a bit brighter--more well groomed, out of his room, walking. He still tends to isolate, but irritability is much improved and he appears less negative in his views. He expresses more anxiety today than he has before--perhaps as discharge nears and with discontinuation of lorazepam, which he acknowledges might be acting as a placebo for him (only on 0.5 mg daily prn). He does not think ECT has made the difference for him and does not want to continue treatment as outpatient, but he admits to feeling better. Unknown whether phototherapy has been helpful but hereports no sleep problems (could it have helped with sleep regulation?) Nortriptyline has been in therapeutic range, but it could probably be increased in needed. We would likely not see any effects of dose increase while he is in the hospital (expected d/c this week) and increased dosage could cause more side effects (and makes risk of overdose a little higher). Dose increase could be done on outpatient basis, if needed. Spirits broader, even chuckling and smiling. Sitting in front of light box. Reluctant to d/c tomorrow. Sylvia spoke with ECT method consultant Jese who suggested waiting until MADRAS score comes up a bit more. Family meeting tomorrow. Resolution of living situation will make big impact. Good pass over weekend, though he was anxious about it initially. Discussed risk and benefits of increasing Nortriptyline. Will conitnue current dose at this time to minimize risk and side effects. Diagnosis: Terry I: Major depression, recurrent, with psychotic features. Terry II: Deferred Terry III: HTN, CAD s/p PCI with stent, type II DM, h/o nephrolithiasis, s/p cholecystectomy Plan: - Family meeting tomorrow, 04/29/11. Continue nortriptyline at current dosage (see above). - Continue lightbox therapy for now: 30 minutes each morning before 10 am. Discuss whether he intends to do this as outpatient - Will stop lorazepam and Percocet use after tonight. Lorazepam 0.5 mg prn daily for tonight if needed. - Discourage daytime napping, even if he is tired, to regulate his sleep cycle. - Encourage group therapy attendance and avoid isolating in his room. - Follow-up on task: pt was asked to write down 5 positive things in his life (to help with dwelling on the negative). The following risk/benefits of treatment were discussed with the patient: No new treatment changes. Discharge Plan: Will assess after family meeting tomorrow. Pt's MADRS score indicates near recovery, but he might benefit from additional 1-2 courses of ECT. Likely d/c later this week. Josue Ward MD 04/28/2011 17:24 Psychiatry Attending Attestation: I have personally seen and examined the patient today. Treatment plan reviewed with the team. I spent a total of 36 minutes with this patient in direct floor time and 20 minutes of that time was spent in counseling and coordination of care regarding status of symptoms, med mgmt, consideration of continued ECT, discharge/aftercare planning. I agree with and have edited in italics the findings and plan of care as documented in the resident's note. MARY JAUREGUI MD Pager [phone] Attending, Inpatient Psychiatry, [facility] * Barbie Jama, NAHUN - 04/28/2011 0953 EST 0970 Admit to PACU, anesthesia in attendance, side rails up, patient asleep. 0949 Awakening, po fluids given, evaluated by anesthesia. 1010 VSS, no complaints of headache, tolerating po, ready for floor care. * Leni Dang MD - 04/27/2011 1155 EST Psychiatry Rounding Report Admit Date: 03/22/2011 Hospital Day: LOS: 36 days Legal status: Voluntary Current locus of harm: 3 Observation / visual check: Routine (Q hour day / elaina, Q 1/2 hour night) Activity restrictions: allowed off unit S: Doing light box this AM. Plans = TV, read. No SI, no AVH. Slept OK. Feeling a little better. Nursing report: TV, art yesterday and social with a peer. Mood better. Slept > 4h. O: VS below. WD older adult, NAPD. Mental status: Dressed but disheveled. Eye contact OK. Speech soft but nl rate and coherence. Psychomotor reduced but better than yesterday. Mood not described; affect less restricted. Linear TP, responses brief. Content above. Insight/judgment questionable but probably improving; he is engaging intreatment and interactions more successfully. A: MDD, some improvement but still severe. Plan: 1) Encouraged activities. 2) Present meds. 3) Getting ECT, photoRx. 4) DM management per routine. Low pre-lunch today (66) but this has been rare. Diet: General Meds: Current Facility-Administered Medications Medication Route Frequency ??? lorazepam (ATIVAN) tablet 0.5 mg Oral Daily PRN ??? oxycodone-acetaminophen (PERCOCET) 5-325 mg per tablet 1 Tab Oral Daily PRN ??? ascorbic acid (VITAMIN C) tablet 500 mg Oral DAILY ??? exenatide (BYETTA) injection 10 mcg Subcutaneous BID WC ??? calcium carbonate (TUMS) 200 mg calcium (500 mg) per chewable tablet Chew 1 Tab Oral QID PRN ? ? aluminum & magnesium hydroxide-simethicone (MYLANTA-DS) 400-400-40 mg/5 mL suspension 15 mLOral Q6H PRN ??? famotidine (PEPCID) tablet 20 mg Oral BID ??? sodium chloride 0.9 % flush 3 mL Intravenous PRN ??? ibuprofen (MOTRIN) tablet 600 mg Oral TID PRN ??? zolpidem (AMBIEN) tablet 10 mg Oral QHS ??? influenza vaccine [id number] (PF) (FLUZONE) 45 mcg (15 mcg x 3)/0.5 mL IM injection-syringe 0.5 mL Intramuscular ONCE ??? nortriptyline (PAMELOR) capsule 100 mg Oral QHS ??? aspirin chewable tablet 81 mg Oral DAILY ??? clopidogrel (PLAVIX) tablet 75 mg Oral DAILY ??? glipiZIDE (GLUCOTROL) CR tablet 5 mg Oral DAILY ??? lisinopril (PRINIVIL, ZESTRIL) tablet 10 mg Oral DAILY ??? metformin (GLUCOPHAGE) tablet 1,000 mg Oral BID ??? Fenofibrate Nanocrystallized (TRICOR) tablet 145 mg Oral DAILY ??? dextrose 50 % solution 12.5 g Intravenous PRN ??? glucagon (human recombinant) injection 1 mg Intramuscular PRN ??? nicotine inhaler (delivery device) Inhalation PRN ??? nicotine (NICOTROL) 10 mg inhaler 1 Inhaler Inhalation Q2H PRN ??? nadolol (CORGARD) tablet 20 mg Oral DAILY Patient Vitals for the past 24 hrs: BP Temp Temp src Pulse Resp SpO2 04/27/11 1000 - - - - 16 - 04/27/11 0840 129/69 mmHg 36.5 ??C (97.7 ??F) Tympanic 88 - 98 % 04/26/11 1953 120/72 mmHg 36.3 ??C (97.3 ??F) Tympanic 90 18 98 % Problem list: Patient Active Problem List Diagnoses Date Noted ??? *(H)Major depression 04/10/2011 Priority: High ??? (H)CAD (coronary artery disease) 04/11/2011 S/p PCI stent ??? Nephrolithiasis 04/11/2011 ??? (H)Diabetes mellitus 03/24/2011 * Leni Dang MD - 04/26/2011 1128 EST Psychiatry Rounding Report Admit Date: 03/22/2011 Hospital Day: LOS: 35 days Legal status: Voluntary Current locus of harm: 3 Observation / visual check: Routine (Q hour day / elaina, Q 1/2 hour night) Activity restrictions: restricted to unit S: Patient lying in dark room, approx 11 AM. Encouraged to get up, but said that he had a headache and a cold, had been up for breakfast, gotten dressed, taken a Motrin. SI none. No AVH. O: VS below. WD older adult, NAPD. Mental status: Dressed but disheveled. Eye contact OK. Speech soft but nl rate and coherence. Psychomotor reduced. Mood depressed, affect constricted. Linear TP, responses brief. Content above. Insight/judgment questionable. RN report: slept 5.5 h, glucose 240, 188. Starting photoRx. A: MDD, some improvement but still severe. Plan: 1) Encouraged OOB. 2) Present meds. 3) Getting ECT, starting photoRx. 4) DM management per routine. Diet: General Meds: Current Facility-Administered Medications Medication Route Frequency ??? lorazepam (ATIVAN) tablet 0.5 mg Oral Daily PRN ??? oxycodone-acetaminophen (PERCOCET) 5-325 mg per tablet 1 Tab Oral Daily PRN ??? ascorbic acid (VITAMIN C) tablet 500 mg Oral DAILY ??? exenatide (BYETTA) injection 10 mcg Subcutaneous BID WC ??? calcium carbonate (TUMS) 200 mg calcium (500 mg) per chewable tablet Chew 1 Tab Oral QID PRN ? ? aluminum & magnesium hydroxide-simethicone (MYLANTA-DS) 400-400-40 mg/5 mL suspension 15 mLOral Q6H PRN ??? famotidine (PEPCID) tablet 20 mg Oral BID ??? sodium chloride 0.9 % flush 3 mL Intravenous PRN ??? ibuprofen (MOTRIN) tablet 600 mg Oral TID PRN ??? zolpidem (AMBIEN) tablet 10 mg Oral QHS ??? influenza vaccine [id number] (PF) (FLUZONE) 45 mcg (15 mcg x 3)/0.5 mL IM injection-syringe 0.5 mL Intramuscular ONCE ??? nortriptyline (PAMELOR) capsule 100 mg Oral QHS ??? aspirin chewable tablet 81 mg Oral DAILY ??? clopidogrel (PLAVIX) tablet 75 mg Oral DAILY ??? glipiZIDE (GLUCOTROL) CR tablet 5 mg Oral DAILY ??? lisinopril (PRINIVIL, ZESTRIL) tablet 10 mg Oral DAILY ??? metformin (GLUCOPHAGE) tablet 1,000 mg Oral BID ??? Fenofibrate Nanocrystallized (TRICOR) tablet 145 mg Oral DAILY ??? dextrose 50 % solution 12.5 g Intravenous PRN ??? glucagon (human recombinant) injection 1 mg Intramuscular PRN ??? nicotine inhaler (delivery device) Inhalation PRN ??? nicotine (NICOTROL) 10 mg inhaler 1 Inhaler Inhalation Q2H PRN ??? nadolol (CORGARD) tablet 20 mg Oral DAILY Patient Vitals for the past 24 hrs: BP Temp Temp src Pulse Resp SpO2 04/26/11 0856 98/58 mmHg 36.1 ??C (97 ??F) Tympanic 83 16 97 % 04/25/11 1909 130/79 mmHg - - 87 16 98 % Problem list: Patient Active Problem List Diagnoses Date Noted ??? *(H)Major depression 04/10/2011 Priority: High ??? (H)CAD (coronary artery disease) 04/11/2011 S/p PCI stent ??? Nephrolithiasis 04/11/2011 ??? (H)Diabetes mellitus 03/24/2011 * Tramaine Melvin (At) - 04/25/2011 1641 EST Spiritual Care: S/O: Pt arrived for the final 15 minutes of group. He initially stated that he did not want to participate, just to observe, but he ended up joining the discussion. Pt shared his own beliefs around spirituality and grappling with feelings of doubt. He also offered his thoughts and reflections on the readings that the forensic toxicologist presented. A: Engaged, open, introspective P: To continue to participate in groups * Karina Luu MD - 04/25/2011 1339 EST Inpatient Psychiatry Daily Progress Note 04/25/2011 Admit Date: 03/22/2011 Hospital day: LOS: 34 days Legal Status: Legal status: Voluntary Observation Level: Observation / visual check: Routine (Q hour day / elaina, Q 1/2 hour night) Locus/Risk of Harm: Current locus of harm: 3 Reason for Admission/Chief Complaint: S/p Ambien overdose (originally involuntarily hospitalized) Clinical Update/24-hour Events: I met the patient and his daughter and granddaughter today. We discussed his treatment going forward and discussed that he would likely have at least a couple more ECTtreatments (#10 on Thursday04/28/11). His daughter has seen some improvement (and also blames some of her father's difficulties on perphenazine), but still has some concerns about his persistent anxietysurrounding disposition planning. I explained that some of that anxiety is understandable and some might be associated with his depression. Pt frequently makes excuses for his actions and tends to focus on negatives. I asked that he write 5 positive factors in his life, and although he started by saying he can't journal, doesn't like it, etc, he agreed he could do this. I encouraged him to attendgroups, particularly cognitive groups, to help him understand some of the negative thoughts he has and how to avoid falling into persistent negative attitudes that get reflected in self-destructive and negative behaviors. He and his family understood that his treatment will continue in therapy as an outpatient. He reports his mood as a 7/10 (10 best today). He still has some physical complaints (sore throat, not feeling well) and he was upset that he could not get a repeat Ambien dose last night (before ECT). I discussed whether he needs a higher initial dose because he frequently asks for a repeat, but he would prefer to keep the current 10 mg dose. I again reinforced the importance of regulating his sleep cycle, not napping in the afternoon. I also encouraged him to go with his family off the floor this afternoon and he agreed. Social History Update: He visited with daughter and granddaughter today. Family meeting scheduled for 04/29 at 1:30. Current Facility-Administered Medications Medication Route Frequency ??? lorazepam (ATIVAN) tablet 0.5 mg Oral Daily PRN ??? oxycodone-acetaminophen (PERCOCET) 5-325 mg per tablet 1 Tab Oral Daily PRN ??? ascorbic acid (VITAMIN C) tablet 500 mg Oral DAILY ??? exenatide (BYETTA) injection 10 mcg Subcutaneous BID WC ??? calcium carbonate (TUMS) 200 mg calcium (500 mg) per chewable tablet Chew 1 Tab Oral QID PRN ? ? aluminum & magnesium hydroxide-simethicone (MYLANTA-DS) 400-400-40 mg/5 mL suspension 15 mLOral Q6H PRN ??? famotidine (PEPCID) tablet 20 mg Oral BID ??? sodium chloride 0.9 % flush 3 mL Intravenous PRN ??? ibuprofen (MOTRIN) tablet 600 mg Oral TID PRN ??? zolpidem (AMBIEN) tablet 10 mg Oral QHS ??? influenza vaccine [id number] (PF) (FLUZONE) 45 mcg (15 mcg x 3)/0.5 mL IM injection-syringe 0.5 mL Intramuscular ONCE ??? nortriptyline (PAMELOR) capsule 100 mg Oral QHS ??? aspirin chewable tablet 81 mg Oral DAILY ??? clopidogrel (PLAVIX) tablet 75 mg Oral DAILY ??? glipiZIDE (GLUCOTROL) CR tablet 5 mg Oral DAILY ??? lisinopril (PRINIVIL, ZESTRIL) tablet 10 mg Oral DAILY ??? metformin (GLUCOPHAGE) tablet 1,000 mg Oral BID ??? Fenofibrate Nanocrystallized (TRICOR) tablet 145 mg Oral DAILY ??? dextrose 50 % solution 12.5 g Intravenous PRN ??? glucagon (human recombinant) injection 1 mg Intramuscular PRN ??? nicotine inhaler (delivery device) Inhalation PRN ??? nicotine (NICOTROL) 10 mg inhaler 1 Inhaler Inhalation Q2H PRN ??? nadolol (CORGARD) tablet 20 mg Oral DAILY Review of Systems: Sore throat, poor appetite. Diarrhea improved. No fever/chills. Mental Status Exam: Elderly looking man with graying disheveled hair as well as pike jacobo, glassessitting on his bed with his family. He is cooperative but complains frequently. No gross psychomotor abnormalities. Speech: essentially normal RRV. Mood: OK 710 (10 best). Affect: restricted with brief moments of brightening. He is frustrated at times. Thought process: coherent, circumstantial at times and does not always answer question. Thought content: No SI. No evidence of psychosis. Focuseson the negative--what he doesn't like, what he can't do, etc. Insight and judgment: fair. Does not appear impulsive. Grossly oriented. BP 115/66 Pulse 73 Temp(Src) 37.3 ??C (99.1 ??F) (Tympanic) Resp 14 Ht 185.4 cm (72.99) Wt 99.973 kg (220 lb 6.4 oz) BMI 29.08 kg/m2 SpO2 96% Data Review: Labs: Recent Results (from the past 24 hour(s)) GLUCOSE, GLUCOMETER Collection Time 04/24/11 1717 Component Value Range Glucose, Fingerstick 189 (*) 70 - 100 (mg/dl) Rodent Control Worker ID [id number] GLUCOSE, GLUCOMETER Collection Time 04/24/11 2052 Component Value Range Glucose, Fingerstick 283 (*) 70 - 100 (mg/dl) Rodent Control Worker ID [id number] GLUCOSE, GLUCOMETER Collection Time 04/25/11 0819 Component Value Range Glucose, Fingerstick 96 70 - 100 (mg/dl) Rodent Control Worker ID [id number] GLUCOSE, GLUCOMETER Collection Time 04/25/11 1322 Component Value Range Glucose, Fingerstick 136 (*) 70 - 100 (mg/dl) Rodent Control Worker ID [id number] Assessment/Formulation: Mr. Santiago is a 60-year-old man who has had recurrent depressive episodes (at least 2 hospitalizations) and recent Ambien OD since his second in 2009. ECT #9 today.Mood is reported a 7/10-- pt tends to feel worse physically after ECT and this tends to negatively color his mood. Overall he is improving, but he still focuses largely on the negative. Some of this is likely resideual depression but some might be personality traits. His daughter believes he has improved but she still is conerned about his anxiety about what to do after hospital discharge. Some of that anxiety is understandable and valid, and I reinforced continued treatment in the hospital andas an outpatient is needed and will help. The daughter reports she will know more about potential apts for her father next week when we meet. Encourage lightbox therapy as pt describes difficulty with depression as the weather worsens (he is relatively new to [place]). Diagnosis: Terry I: Major depression, recurrent, with psychotic features. Terry II: Deferred Terry III: HTN, CAD s/p PCI with stent, type II DM, h/o nephrolithiasis, s/p cholecystectomy Plan: - Continue with ECT #10 on 04/28/11. Continue nortriptyline. - Initiate lightbox therapy: 30 minutes each morning before 10 am. He should not look directly at the light but he should remain between 1-2 feet of the light. Phototherapy might help with depressionand sleep cycle regulation. - Taper lorazepam and Percocet use. Lorazepam now 0.5 mg prn daily. Pt given the option to decide when to stop Percocet (only once daily prn now)--must be before discharge. No changes over the weekend. - Family meeting with daughter about disposition planning (housing and financial concerns) on 04/29 at 1:30 pm. - Discourage daytime napping, even if he is tired, to regulate his sleep cycle. - Encourage group therapy attendance and avoid isolating in his room. - Pt was asked to write down 5 positive things in his life (to help with dwelling on the negative). - Monitor physical complaints. No urgent needs or further w/u needed at this time. The following risk/benefits of treatment were discussed with the patient: No new treatment changes. Discharge Plan: Will depend on improvement in depression and response to treatment. At least 10 total ECT sessions will be conducted. Will reassess next week. Josue Ward MD 04/25/2011 13:39 Attending Attestation: I saw and evaluated the patient today. Treatment plan reviewed with the patient and team. I agree with the findings and plan of care as documented in the resident's note. Total time spent directly with patient was 10 minutes of which approximately ## minutes was spent in counseling (re:depression treatment). An additional 15 minutes was spent in coordination of care with the multidisciplinary team. Total floor time: 25 minutes KARINA LUU MD Attending Psychiatrist [facility] Pager [phone] * Chen Vázquez RN - 04/25/2011 0936 EST Arrived sleepy no distress,935 HOB up taking PO * Karina Luu MD - 04/24/20112025 EST Inpatient Psychiatry Daily Progress Note 04/24/2011 Admit Date: 03/22/2011 Hospital day: LOS: 33 days Legal Status: Legal status: Voluntary Observation Level: Observation / visual check: Routine (Q hour day / elaina, Q 1/2 hour night) Locus/Risk of Harm: Current locus of harm: 3 Reason for Admission/Chief Complaint: S/p Ambien overdose (originally involuntarily hospitalized) Clinical Update/24-hour Events: Pt reported to be social and in good spirits by nursing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 GLUCOMETER Collection Time 04/22/11 0802 Component Value Range Glucose, Fingerstick 138 (*) 70 - 100 (mg/dl) Rodent Control Worker ID [id number] GLUCOSE, GLUCOMETER Collection Time 04/22/11 1148 Component Value Range Glucose, Fingerstick 158 (*) 70 - 100 (mg/dl) Rodent Control Worker ID [id number] GLUCOSE, GLUCOMETER Collection Time 04/22/11 1657 Component Value Range Glucose, Fingerstick 180 (*) 70 - 100 (mg/dl) Rodent Control Worker ID [id number] Assessment/Formulation: Mr. Santiago is a 60-year-old man who has had recurrent depressive episodes (at least 2 hospitalizations) and recent Ambien OD since his second in 2009. He was supposed to receive ECT #8 today but it will instead occur tomorrow. Mood, and his financial and housing concerns, remain the same: disposition planning with his daughter might alleviate concerns and improve mood, which appears to have plateaued the past several days. Overall, he is less irritable but still isolative. He agreed he could try to attend more groups but was not convincing that he would do so. He has adhered to treatment with respect to lorazepam and Percocet taper. Will continue to taper these with plan to discontinue them before D/C. Diagnosis: Terry I: Major depression, recurrent, with psychotic features. Terry II: Deferred Terry III: HTN, CAD s/p PCI with stent, type II DM, h/o nephrolithiasis, s/p cholecystectomy Plan: - Continue with ECT #8 on 04/23/11. - Taper lorazepam and Percocet use. T omorrow will make lorazepam once daily prn, given pt has onlybeen using at that frequency the past 3 days. Will discuss plans to d/c Percocet. - Reschedule family meeting as soon as possible. The meeting should help with disposition planning (housing and financial concerns). - Discourage daytime napping, even if he is tired, to regulate his sleep cycle. - Encourage group therapy attendance and avoid isolating in his room. - Monitor physical complaints. No urgent needs or further w/u needed at this time. The following risk/benefits of treatment were discussed with the patient: No new treatment changes. Discharge Plan: Will depend on improvement in depression and response to treatment. At least 10 total ECT sessions will be conducted. Josue Ward MD 04/22/2011 17:47 Attending Attestation: I saw and evaluated the patient today. Treatment plan reviewed with the patient and team. I agree with the findings and plan of care as documented in the resident's note. Total time spent directly with patient was 10 minutes of which approximately 10 minutes was spent in counseling (re:treatment of depression). An additional 25 minutes minutes was spent in coordination of care with the multidisciplinary team. Total floor time: 35 minutes NB: New patient to nc - Covering for Dr Jauregui. Chart reviewed. Treatment plan updated. KARINA LUU MD Attending Psychiatrist [facility] Pager [phone] * Tamika Cordero - 04/22/2011 1547 EST Active Multi-Disciplinary problems: ALTERED THOUGHT PROCESSES [035385] (03/22/11) ALTERATION IN SLEEP [445569] (03/23/11) KNOWLEDGE DEFICIT [377232] (04/07/11) NUTRITION [115325] (04/07/11) RISK FOR INFECTION [436717] (04/07/11) GLYCEMIA IMBALANCE [274683] (04/07/11) ANXIETY [053869] (04/09/11) Ineffective Coping [133136] (04/09/11) SELF CARE DEFICIT [086315] (04/09/11) ALTERATION IN MOOD [838637] (04/09/11) Patient Active Problem List Diagnoses ??? Diabetes mellitus ??? Major depression ??? CAD (coronary artery disease) ??? Nephrolithiasis Data: Was npo for ECT this morning. Was not called for ECT and according to the SW from ECT he was not on the schedule for today. He was on the schedule for Thu and Thu. The patient was fasting untilafter 1100. The fingerstick at 08 was 138 and at 12 was 158. Had a very difficult time trying to get a tray for the patient. After speaking with the dietitian, he diet was changed to a regular diet. The patient has a working knowledge of the foods that he can eat. The diet was discussed with the patient and the nurse will assist the patient when he needs advice on what foods are allowed. The dietitian can also be consulted. Mr. Santiago was able to display a sense of humor despite the agrevationof missing ECT again and the problems of getting his diet. Requested that the maria isabel be removed. The maria isabel was removed by the nurse. Was out in the day area until after 1300. Action: Assess for suicidal ideation. Offer one to one. Encourage groups. Utilize teaching opportunities. Assess for positive effects of ECT. Monitor for side effects of ECT. Will npo after midnight for ECT in the morning. Will need a maria isabel inserted prior to leaving for treatment in the morning. No benzos are to be given after 1900. Response: Was out of his room until after 1300 and socialized with peers. Did not verbalize suicidal ideation. Tamika Cordero RN 04/22/2011 15:48 * Benito Mejia RD - 04/22/2011 1116 EST Nutrition consult for diet ed on 04.04 NPO for ECT Diet: CCD Labs: glu-130-s 03/22 B12 = 381 Meds:500 mg Vit. C glyburide, metformin, A: Pt with LOS = 30 days Pt has diabetes ed info on 03/25, not receptive to diet ed info at that time, please re consult nutrition for diet ed closer to time of d/c. Most recent B12 at the low end of normal, at risk for B12 deficiency d/t metformin use, suggest check methylmalonic acid to assess for B12 deficiency Suggest p.o. MVM to assure pt. Meets needs for vitamins. likely vitamin D deficient d/t age, seasonand current illness. Please check vitamin D level d/t LOS Rec: 1) consult for diet ed close to time of d/c 2) please check methylmalonic acid and vitamin D 3) p.o. Multivitamin and mineral daily Ongoing monitor and follow up BENITO MEJIA RD Pager [phone] * Lele Lee MD - 04/21/2011 1056 EST 04/21/2011 ATTENDING SURVEYING TECHNICIAN NOTE REASON FOR HOSPITALIZATION: depression HOSPITAL DAY: LOS: 30 days INTERIM HISTORY: Events of past 24h reviewed with nursing staff. Recent notes reviewed. Good mood. Watched movie with others. Asked for percocet for pain. Slept five hours. EXAM: Again lying in bed sleeping. Says he is a little tired. Complains of a cold and sore throat. BP 99/67 Pulse 91 Temp(Src) 35.8 ??C (96.5 ??F) (Tympanic) Resp 16 Ht 185.4 cm (72.99) Wt 99.973 kg (220 lb 6.4 oz) BMI 29.08 kg/m2 SpO2 99% ASSESSMENT: Improved but not in remission. PLAN: As per treatment team. Will continue ECT tomorrow. Lele Lee MD Attending Psychiatrist housing liaison Pager [phone] * Kailee Nobles RN - 04/20/2011 2304 EST 2304: Shahnaz in good spirits this elaina. Out in DR/ TV room entire shift. Watched the evening movie, watched a football game and ate dinner with peers. C/O mild anxiety which he received his prn ativanfor, with relief. Also requested A nicotrol cartridge x2. C/o 10/27 right shoulder pain which he received 1 percocet. * eLle Lee MD - 04/20/2011 1509 EST 04/20/2011 ATTENDING SURVEYING TECHNICIAN NOTE REASON FOR HOSPITALIZATION: depression HOSPITAL DAY: LOS: 29 days INTERIM HISTORY: Events of past 24h reviewed with nursing staff. Recent notes reviewed. Fine evening. Ate in dining room. FS = 191. Slept 4.5 hours. EXAM: Lying in bed sleeping. Says he is a little tired. Has no complaints. BP 121/72 Pulse 92 Temp(Src) 36.4 ??C (97.5 ??F) (Tympanic) Resp 18 Ht 185.4 cm (72.99) Wt 99.973 kg (220 lb 6.4 oz) BMI 29.08 kg/m2 SpO2 95% ASSESSMENT: Improved but not in remission. PLAN: As per treatment team. Will continue ECT Lele Lee MD Attending Psychiatrist housing liaison Pager [phone] * Lele Lee MD - 04/19/2011 1204 EST 04/19/2011 ATTENDING SURVEYING TECHNICIAN NOTE REASON FOR HOSPITALIZATION: depression HOSPITAL DAY: LOS: 28 days INTERIM HISTORY: Events of past 24h reviewed with nursing staff. Recent notes reviewed. Generally much improved and feeling better. Calm. Denies suicidal and homicidal ideation. Fingersticks acceptable. Slept only three hours despite zolpidem X 2. EXAM: Sleeping at 11 a.m. -- notes poor sleep last night. Talks pleasantly and superficially. Says he has no complaints. BP 111/68 Pulse 76 Temp(Src) 35.9 ??C (96.6 ??F) (Tympanic) Resp 16 Ht 185.4 cm (72.99) Wt 99.973 kg (220 lb 6.4 oz) BMI 29.08 kg/m2 SpO2 99% ASSESSMENT: Improved but not in remission. PLAN: As per treatment team. Will continue ECT Lele Lee MD Attending Psychiatrist housing liaison Pager [phone] * Mary Jauregui MD - 04/18/20111957 EST Inpatient Psychiatry Daily Progress Note 04/18/2011 Admit Date: 03/22/2011 Hospital day: LOS: 27 days Legal Status: Legal status: Voluntary Observation Level: Observation / visual check: Routine (Q hour day / elaina, Q 1/2 hour night) Locus/Risk of Harm: Current locus of harm: 3 Reason for Admission/Chief Complaint: S/p Ambien overdose (originally involuntarily hospitalized) Clinical Update/24-hour Events: Pt reports sleep was OK, but is frequently up in the middle of the night. Was more pleased with recent glucose levels, although he felt symptoms of hypoglycemia this afternoon when his levels were in the 80s (not uncommon for him to feel hypoglycemia at these levels). He reported feeling down today but did not pinpoint a reason, other than noting he didn't feel grea t physically following ECT. Mood: 5-6/10 (10 best). He still worries about financial and housing issues after discharge. Attempted family meeting today but we had trouble connecting with his daughter. We will try again next week. Pt appeared disappointed that he might not see his daughter this weekend and that he didn't see her today. He wants passes for the weekend in case she visits (she and her family are sick). We discussed tapering of lorazepam and Percocet, and although he was a little resistant he agreed to reduced dose of lorazepam and having only one Percocet prn each day. I encouraged him to attend and participate in groups and avoid isolating and napping during the day to help regulate his sleep cycle. Social History Update: Family meeting today delayed to next week. Current Facility-Administered Medications Medication Route Frequency ??? lorazepam (ATIVAN) tablet 0.5 mg Oral BID PRN ??? oxycodone-acetaminophen (PERCOCET) 5-325 mg per tablet 1 Tab Oral Daily PRN ??? ascorbic acid (VITAMIN C) tablet 500 mg Oral DAILY ??? exenatide (BYETTA) injection 10 mcg Subcutaneous BID WC ??? calcium carbonate (TUMS) 200 mg calcium (500 mg) per chewable tablet Chew 1 Tab Oral QID PRN ? ? aluminum & magnesium hydroxide-simethicone (MYLANTA-DS) 400-400-40 mg/5 mL suspension 15 mLOral Q6H PRN ??? famotidine (PEPCID) tablet 20 mg Oral BID ??? sodium chloride 0.9 % flush 3 mL Intravenous PRN ??? ibuprofen (MOTRIN) tablet 600 mg Oral TID PRN ??? zolpidem (AMBIEN) tablet 10 mg Oral QHS ??? influenza vaccine [id number] (PF) (FLUZONE) 45 mcg (15 mcg x 3)/0.5 mL IM injection-syringe 0.5 mL Intramuscular ONCE ??? nortriptyline (PAMELOR) capsule 100 mg Oral QHS ??? aspirin chewable tablet 81 mg Oral DAILY ??? clopidogrel (PLAVIX) tablet 75 mg Oral DAILY ??? glipiZIDE (GLUCOTROL) CR tablet 5 mg Oral DAILY ??? lisinopril (PRINIVIL, ZESTRIL) tablet 10 mg Oral DAILY ??? metformin (GLUCOPHAGE) tablet 1,000 mg Oral BID ??? Fenofibrate Nanocrystallized (TRICOR) tablet 145 mg Oral DAILY ??? dextrose 50 % solution 12.5 g Intravenous PRN ??? glucagon (human recombinant) injection 1 mg Intramuscular PRN ??? nicotine inhaler (delivery device) Inhalation PRN ??? nicotine (NICOTROL) 10 mg inhaler 1 Inhaler Inhalation Q2H PRN ??? nadolol (CORGARD) tablet 20 mg Oral DAILY Review of Systems: Still feeling queasy at times. Complains of warm room but no fevers. Feels a bit shaky when glucose levels are in 80s. Mental Status Exam: Elderly looking man with graying hair as well as pike jacobo lying on his bed [facility] room. He looks tired. Mild psychomotor slowing. Speech: essentially normal RRV. Mood: down, rated 5-6/10 (10 best). Affect: restricted and dysphoric. Thought process: coherent, no tangentiality. Thought content: No SI. No evidence of psychosis. Expresses that his main concerns are finances and his lack of housing. Insight and judgment: poor to fair. Participating in treatment but not engaged in groups and not adhering to recommendations to avoid napping. Does not appear impulsive. Grossly oriented. BP 111/78 Pulse 76 Temp(Src) 36.5 ??C (97.7 ??F) (Tympanic) Resp 10 Ht 185.4 cm (72.99) Wt 99.973 kg (220 lb 6.4 oz) BMI 29.08 kg/m2 SpO2 98% Data Review: Labs: Recent Results (from the past 24 hour(s)) GLUCOSE, GLUCOMETER Collection Time 04/17/11 2148 Component Value Range Glucose, Fingerstick 214 (*) 70 - 100 (mg/dl) Rodent Control Worker ID [id number] GLUCOSE, GLUCOMETER Collection Time 04/18/11 0801 Component Value Range Glucose, Fingerstick 132 (*) 70 - 100 (mg/dl) Rodent Control Worker ID [id number] GLUCOSE, GLUCOMETER Collection Time 04/18/11 1334 Component Value Range Glucose, Fingerstick 88 70 - 100 (mg/dl) Rodent Control Worker ID [id number] GLUCOSE, GLUCOMETER Collection Time 04/18/11 1651 Component Value Range Glucose, Fingerstick 191 (*) 70 - 100 (mg/dl) Rodent Control Worker ID [id number] Assessment/Formulation: Mr. Santiago is a 60-year-old man who has had recurrent depressive episodes (at least 2 hospitalizations) since his second in 2009. ECT #7 received today. Mood was more dysphoric today, perhaps because his daughter could not visit, although he does not directly state this. Focuses some on his somatic complaints. Seems a bit more relieved when I explain that his financial and housing concerns might be alleviated when we hold a family meeting next week. His negative outlook has generally diminished during hospitalization, as has his irritability, but he still remains isolative and fairly restricted (and dysphoric) in affect. Although Mr. Gobrick has not been full agreement with tapering lorazepam and Percocet, he ultimately agreed to reducing lorazepam to 0.5 mg bid prn (he noted he hadn't used any yet today). He also agreed to reducing Percocet to once daily prn. Diagnosis: Terry I: Major depression, recurrent, with psychotic features. Terry II: Deferred Terry III: HTN, CAD s/p PCI with stent, type II DM, h/o nephrolithiasis, s/p cholecystectomy Plan: - Taper lorazepam and Percocet use. Today lorazepam reduced from 1 mg bid prn to 0.5 mg bid prn. Percocet reduced from bid prn to daily prn. - Continue with ECT #8 on , 04/22/11. - Family meeting today needed to be rescheduled--plan for next week. The meeting should help with disposition planning (housing and financial concerns). - Discourage daytime napping, even if he is tired, to regulate his sleep cycle. - Encourage group therapy attendance and avoid isolating in his room. - Passes off the unit for this weekend in cases daughter can visit. The following risk/benefits of treatment were discussed with the patient: Risks of dependence with analgesics and benzodiazepines discussed. Discharge Plan: Will depend on improvement in depression and response to treatment. At least 10 total ECT sessions will be conducted. Josue Ward MD 04/18/2011 19:58 Psychiatry Attending Attestation: I have personally seen and examined the patient Thursday04/18/2011. Treatment plan reviewed with theteam. I spent a total of 30 minutes with this patient in direct floor time and 20 minutes of that time was spent in counseling and coordination of care regarding status of symptoms, med mgmt, pass and weekend planning. I agree with and have edited in italics the findings and plan of care as documented in the resident's note. MARY JAUREGUI MD Pager [phone] Attending, Inpatient Psychiatry, [facility] * Benito Lainez RN - 04/18/2011 0800 EST 843 - pt arrived pacu asleep - does not verbalize pain - no resp distress noted 915 - pt arousing, memo soda, denies pain - 925 Report called to Taimka SB 3RN; waitiing for hortensia BARKSDALE sign out 930 - pt ready for transfer to 3 * Yenny Brumfield - 04/17/2011 1942 EST Games Group: S/O: Pt came to group approx midway after finishing his supper. He did not want to join in game of [employer], instead he preferred to work on his word search but he sat at the table with usand socialized as he worked on his puzzle, making jokes and laughing. A: Pt engaged with pleasant and zheng affect. Pt improving. P: To continue to participate in groups. * Nixon Schwartz LICSW - 04/17/2011 1556 EST [facility] Electroconvulsive Therapy Service Cognition & Depression Rating Date of Service: 04/17/2011 Time: 1500 Duration of Service: 20 minutes Folstein MMSE Total Score (Max. Total=27): 27 Level of Consciousness: Alert. Reasoning: intact Judgement: fair Fund of Knowledge: bilingual inside sales representative Diagnosis code: 296.34 Total MADRS Score (Very Severe 44; Severe 31; Moderate 25; Mild 15; Recovered 7): 17 Subjective Rating of Cognitive Dysfunction Anterograde Amnesia: Moderate Retrograde Amnesia: Moderate Assessment: No objective evidence of cognitive dysfunction. Mood: low but improving. Affect: mildlyrestricted. Patient continues to show improvement both objectively and subjectively. His MADRS scores have improved from 43 (03/26/2011) to 17 (04/17/2011). Today, he expressed some apprehension aboutwhat he will do when discharged and explained that he has a meeting tomorrow to discuss such plans.Patient is s/p 6 R/Unilateral Index ECT. His next treatment is scheduled for 04/18/2011. Plan: Continue to monitor cognition and level of depression and Discuss findings with psychiatrist administering ECT: Dr. Walter. JOE PIERRE 04/17/2011 15:56 * Mary Jauregui MD - 04/17/2011 0939 EST Inpatient Psychiatry Daily Progress Note 04/17/2011 Admit Date: 03/22/2011 Hospital day: LOS: 26 days Legal Status: Legal status: Voluntary Observation Level: Observation / visual check: Routine (Q hour day / elaina, Q 1/2 hour night) Locus/Risk of Harm: Current locus of harm: 3 Reason for Admission/Chief Complaint: S/p Ambien overdose (originally involuntarily hospitalized) Clinical Update/24-hour Events: Pt reports waking up in middle of night feeling a bit queasy. Still queasy this morning but he appeared to have eaten much of his breakfast. Reports feeling a bit tired and says he usually uses CPAP at night, but does not want to use the machines here (too big and loud). He will consider it though. He reports no memory problems with ECT and believes ECT and medication adjustments have helped some during hospitalization. His biggest concern is not knowing where he will live and financial concerns because he is not eligible for Social Security until May 2011. He believes he would be feeling quite good if those issues were squared away. He is working with his daughter to address some of these issues and is interested in speaking with Katarzyna about disability. Mood is reported to be 7-8 out of 10 (10 best). He reports no SI and feels he is thinking clearly (no difficulties with reality, which he experienced when at [place] and which he attributes to perphenazine). He expressed some disappointment about tapering lorazepam and Percocet, noting he has not abused them. I explained the rationale for using both and the potential for dependence on them (if not abuse). He understood and did not resist much. He notes lorazepam makes him less anxious and uncomfortable, but he had difficulty clarifying what he meant by that, almost suggesting some difficulty speaking with people, but denying any social anxiety. He notes he withdraws when he is depressed, and I encouraged him to attend and participate in groups and avoid isolating and napping during the day (to also help regulate his sleep cycle). Social History Update: Pt has no set plans to see his daughter (who lives in [facility]) again while he is in the hospital, but we encouraged him to spend time off the unit when he can. Current Facility-Administered Medications Medication Route Frequency ??? ascorbic acid (VITAMIN C) tablet 500 mg Oral DAILY ??? exenatide (BYETTA) injection 10 mcg Subcutaneous BID WC ??? calcium carbonate (TUMS) 200 mg calcium (500 mg) per chewable tablet Chew 1 Tab Oral QID PRN ? ? aluminum & magnesium hydroxide-simethicone (MYLANTA-DS) 400-400-40 mg/5 mL suspension 15 mLOral Q6H PRN ??? famotidine (PEPCID) tablet 20 mg Oral BID ??? sodium chloride 0.9 % flush 3 mL Intravenous PRN ??? oxycodone-acetaminophen (PERCOCET) 5-325 mg per tablet 1 Tab Oral BID PRN ??? ibuprofen (MOTRIN) tablet 600 mg Oral TID PRN ??? zolpidem (AMBIEN) tablet 10 mg Oral QHS ??? influenza vaccine [id number] (PF) (FLUZONE) 45 mcg (15 mcg x 3)/0.5 mL IM injection-syringe 0.5 mL Intramuscular ONCE ??? nortriptyline (PAMELOR) capsule 100 mg Oral QHS ??? lorazepam (ATIVAN) tablet 1 mg Oral BID PRN ??? aspirin chewable tablet 81 mg Oral DAILY ??? clopidogrel (PLAVIX) tablet 75 mg Oral DAILY ??? glipiZIDE (GLUCOTROL) CR tablet 5 mg Oral DAILY ??? lisinopril (PRINIVIL, ZESTRIL) tablet 10 mg Oral DAILY ??? metformin (GLUCOPHAGE) tablet 1,000 mg Oral BID ??? Fenofibrate Nanocrystallized (TRICOR) tablet 145 mg Oral DAILY ??? dextrose 50 % solution 12.5 g Intravenous PRN ??? glucagon (human recombinant) injection 1 mg Intramuscular PRN ??? nicotine inhaler (delivery device) Inhalation PRN ??? nicotine (NICOTROL) 10 mg inhaler 1 Inhaler Inhalation Q2H PRN ??? nadolol (CORGARD) tablet 20 mg Oral DAILY Review of Systems: Feels queasy. No fever or chills, sore throat, congestion. Occasional right shoulder pain from tear in rotator cuff. Says he has used hydrocodone in past, which was helpful but Vicodin 7.5 mg and OTC analgesics have not helped. Pain worst at night when rotating his shoulder to sleep. Blood glucose relatively well controlled. Mental Status Exam: Elderly looking man with graying hair as well as pike jacobo, not wearing his glasses, sitting at table in community room, looks clean and groomed. He is alert and cooperative. No gross psychomotor abnormalities. Speech: essentially normal RRV. Mood: OK, rated 7-8/10 (10 best). Affect: somewhat restricted and dysphoric, mellow, brief moments of brightening. Thought process: coherent, no tangentiality. Thought content: No SI. No evidence of psychosis. Expresses that his main concerns are finances and his lack of housing. Insight and judgment: fair. Does not appear impulsive.States the date is Apr 18, but otherwise is oriented. Immediate and short-term recall fully intact. BP 144/64 Pulse 89 Temp(Src) 36.1 ??C (97 ??F) (Tympanic) Resp 16 Ht 185.4 cm (72.99) Wt99.973 kg (220 lb 6.4 oz) BMI 29.08 kg/m2 SpO2 97% Data Review: Labs: Recent Results (from the past 24 hour(s)) GLUCOSE, GLUCOMETER Collection Time 04/16/11 1105 Component Value Range Glucose, Fingerstick 240 (*) 70 - 100 (mg/dl) Rodent Control Worker ID [id number] GLUCOSE, GLUCOMETER Collection Time 04/16/11 1732 Component Value Range Glucose, Fingerstick 184 (*) 70 - 100 (mg/dl) Rodent Control Worker ID [id number] GLUCOSE, GLUCOMETER Collection Time 04/16/11 2039 Component Value Range Glucose, Fingerstick 257 (*) 70 - 100 (mg/dl) Rodent Control Worker ID [id number] GLUCOSE, GLUCOMETER Collection Time 04/17/11 0819 Component Value Range Glucose, Fingerstick 214 (*) 70 - 100 (mg/dl) Rodent Control Worker ID [id number] Assessment/Formulation: Mr. Santiago is a 60-year-old man who has had recurrent episodes (at least 2hospitalizations) since his second in 2009 (note: diagnosis was changed to recurrent MDD below). Mood is improving (increasing to 7-8 compared with 6 yesterday in my brief experience with him), but he still tends to isolate during the day and avoids group therapy for the most part. He notes isolation is indicative of depression in him. No evidence of psychosis at this point. His biggestconcerns are after discharge, specifically financial concerns until he is eligible for Social Security next year and housing concerns. A family meeting with his daughter to address these concerns as well as get her opinion about the progress of her father could be helpful. SW will arrange this. SW will also speak with pt about eligibility for disability (unlikely he will be eligible). Significantly, the intense negativity and irritability seems to have diminished. Although Mr. Santiago did not necessarily appear in full agreement with tapering lorazepam and Percocet, he did not resist the plan. Encourage analgesic use only when absolutely needed. By early next week, we should reduce lorazepam to only daily prn. Continue ECT with no other med changes. Diagnosis: Terry I: Major depression, recurrent, with psychotic features. Terry II: Deferred Terry III: HTN, CAD s/p PCI with stent, type II DM, h/o nephrolithiasis, s/p cholecystectomy Plan: - Continue current medications. Goal will be to taper lorazepam and Percocet use. Decrease lorazepam to 1 mg BID prn. Encourage Percocet use only when absolutely needed (he notes pain worst at night). - Continue with ECT #7 tomorrow. - Arrange family meeting to help disposition planning (hosuing and financial concerns). - Discourage daytime napping, even if he is tired, to regulate his sleep cycle. - Encourage group therapy attendance and avoid isolating in his room. The following risk/benefits of treatment were discussed with the patient: Risks of dependence with analgesics and benzodiazepines discussed. Discharge Plan: Will depend on improvement in depression and response to treatment. Josue Ward MD 04/17/2011 9:39 Psychiatry Attending Attestation: I have personally seen and examined the patient today. Treatment plan reviewed with the team. I spent a total of 30 minutes with this patient in direct floor time and 20 minutes of that time was spent in counseling and coordination of care regarding status of symptoms, med mgmt, ongoing planning for aftercare and discharge. I agree with and have edited in italics the findings and plan of care as documented in the resident's note. MARY JAUREGUI MD Pager [phone] Attending, Inpatient Psychiatry, [facility] * Kim Russell RN - 04/16/2011 1003 EST 0954-Admitted to pacu, monitors on, vss, sleeping, wm, pk 1015-memo soda 1025-report to aamir Mueller dc'jaswinder per floor request, washed pt hair with wash cloth to get goo out * Mary Jauregui MD - 04/16/2011 0914 EST Inpatient Psychiatry Daily Progress Note 04/16/2011 Admit Date: 03/22/2011 Hospital day: LOS: 25 days Legal Status: Legal status: Voluntary Observation Level: Observation / visual check: Routine (Q hour day / elaina, Q 1/2 hour night) Locus/Risk of Harm: Current locus of harm: 3 Reason for Admission/Chief Complaint: S/p Ambien overdose (originally involuntarily hospitalized) Clinical Update/24-hour Events: Pt scheduled for ECT #6 today. Complains of feeling warm, clammy, with and nausea and heartburn that resolved with famotidine. Appetite has been less because of the symptoms. He was happy to start exenatide treatment again. Feels a bit tired today--multiple attempts made to place IV this morning. Says he would like to exercise more. Reports going to only a few groups, most of which do not suit him (he enjoyed art therapy). He reports his mood has been OK and hefeels on a even keel. Believes he is concentrating better and thinking more clearly, especially offof perphenazine, which he believed made him psychotic. No reported delusions. He denies SI. discussed use of Ativan TID and Percocet BID and suggest cutting back on these over next several days with goal of neither med at discharge. wondered if he may be lying in bed due to sedating effects of these meds. He rarely has any spontaneous c/o pain. Pt would like to speak with SW today to discuss the possibility of initiating disability. Social History Update: Pt reports he had a good pass off the unit with daughter and 2 grandchildrenthis weekend. Wants to look into disability. Feels it is acceptable for him to do so, given his long work history. 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 Current Facility-Administered Medications Medication Route Frequency ??? ascorbic acid (VITAMIN C) tablet 500 mg Oral DAILY ??? exenatide (BYETTA) injection 10 mcg Subcutaneous BID WC ??? calcium carbonate (TUMS) 200 mg calcium (500 mg) per chewable tablet Chew 1 Tab Oral QID PRN ? ? aluminum & magnesium hydroxide-simethicone (MYLANTA-DS) 400-400-40 mg/5 mL suspension 15 mLOral Q6H PRN ??? famotidine (PEPCID) tablet 20 mg Oral BID ??? sodium chloride 0.9 % flush 3 mL Intravenous PRN ??? oxycodone-acetaminophen (PERCOCET) 5-325 mg per tablet 1 Tab Oral BID PRN ??? ibuprofen (MOTRIN) tablet 600 mg Oral TID PRN ??? zolpidem (AMBIEN) tablet 10 mg Oral QHS ??? lorazepam (ATIVAN) tablet 1 mg Oral AT BEDTIME PRN ??? influenza vaccine [id number] (PF) (FLUZONE) 45 mcg (15 mcg x 3)/0.5 mL IM injection-syringe 0.5 mL Intramuscular ONCE ??? nortriptyline (PAMELOR) capsule 100 mg Oral QHS ??? lorazepam (ATIVAN) tablet 1 mg Oral BID PRN ??? aspirin chewable tablet 81 mg Oral DAILY ??? clopidogrel (PLAVIX) tablet 75 mg Oral DAILY ??? glipiZIDE (GLUCOTROL) CR tablet 5 mg Oral DAILY ??? lisinopril (PRINIVIL, ZESTRIL) tablet 10 mg Oral DAILY ??? metformin (GLUCOPHAGE) tablet 1,000 mg Oral BID ??? Fenofibrate Nanocrystallized (TRICOR) tablet 145 mg Oral DAILY ??? dextrose 50 % solution 12.5 g Intravenous PRN ??? glucagon (human recombinant) injection 1 mg Intramuscular PRN ??? nicotine inhaler (delivery device) Inhalation PRN ??? nicotine (NICOTROL) 10 mg inhaler 1 Inhaler Inhalation Q2H PRN ??? nadolol (CORGARD) tablet 20 mg Oral DAILY Review of Systems: See HPI above. Sleep OK, interrupted by IV placement. Frequently warm throughoutday but no fever or chills. Mild heartburn and nausea with reduced appetite. No reported pain. Blood sugar under better control with addition of exenatide. Mental Status Exam: Elderly looking man with graying hair as well as pike jacobo, glasses, sitting on bed, looks clean and groomed. He is alert, cooperative, and forthcoming. No gross psychomotor abnormalities. Speech: essentially normal RRV. Mood: hanging in...OK Rated 6/10 (10 best). Affect: somewhat restricted and dysphoric, mellow, but brief moments of brightening. Thought process: coherent,no tangentiality. Thought content: No SI. No evidence of psychosis. No dominant theme, but discusses physical complaints. Insight: fair. Judgment: fair--seems more adherent to treatment. Does not appear impulsive. No formal cognitive testing but he is oriented. BP 104/68 Pulse 89 Temp(Src) 36 ??C (96.8 ??F) (Tympanic) Resp 16 Ht 185.4 cm (72.99) Wt99.973 kg (220 lb 6.4 oz) BMI 29.08 kg/m2 SpO2 99% Data Review: Labs: Recent Results (from the past 24 hour(s)) GLUCOSE, GLUCOMETER Collection Time 04/15/11 1147 Component Value Range Glucose, Fingerstick 169 (*) 70 - 100 (mg/dl) Rodent Control Worker ID [id number] GLUCOSE, GLUCOMETER Collection Time 04/15/11 1652 Component Value Range Glucose, Fingerstick 235 (*) 70 - 100 (mg/dl) Rodent Control Worker ID [id number] GLUCOSE, GLUCOMETER Collection Time 04/15/11 2117 Component Value Range Glucose, Fingerstick 149 (*) 70 - 100 (mg/dl) Rodent Control Worker ID [id number] GLUCOSE, GLUCOMETER Collection Time 04/16/11 0805 Component Value Range Glucose, Fingerstick 147 (*) 70 - 100 (mg/dl) Rodent Control Worker ID [id number] Assessment/Formulation: Mr. Santiago is a 60-year-old man who has had recurrent episodes (at least 2hospitalizations) since his second in 2009 (note: diagnosis was changed to recurrent MDD below). Missed ECT tx last week, resuming treatment #6 today. Mood and affect seem a bit brighter--perhaps with the help of a pass off the unit--compared with last week. Desires to get outside, exercis e, which seems more hopeful. He feels better and reports thinking more clearly since stopping perphenazine, which he had been on when hospitalized at [place] in Feb 2011. Goals will be to continue ECT and try to taper lorazepam and oxycodone. Diagnosis: Terry I: Major depression, recurrent, with psychotic features. Terry II: Deferred Terry III: HTN, CAD s/p PCI with stent, type II DM, h/o nephrolithiasis, s/p cholecystectomy Plan: - Continue current medications. Goal will be to taper lorazepam and oxycodone use.Decrease lorazepam to 1 mg BID prn. - Continue with ECT #6 today. - Assess need for family meeting. The following risk/benefits of treatment were discussed with the patient: No new changes to treatment. Discharge Plan: Will depend on improvement in depression and response to treatment. Josue Ward MD 04/16/2011 9:14 Psychiatry Attending Attestation: I have personally seen and examined the patient today. Treatment plan reviewed with the team. I spent a total of 36 minutes with this patient in direct floor time and 20 minutes of that time was spent in counseling and coordination of care regarding status of symptoms, med mgmt, ongoing treatment planning. I agree with and have edited in italics the findings and plan of care as documented in the resident's note. MARY JAUREGUI MD Pager [phone] Attending, Inpatient Psychiatry, [facility] * Mary Jauregui MD - 04/15/2011 3721 EST 04/15/2011 ATTENDING SURVEYING TECHNICIAN NOTE REASON FOR HOSPITALIZATION: depression HOSPITAL DAY: LOS: 24 days INTERIM HISTORY: Events of past 24h reviewed with nursing staff. Lying on bed. Good pass with daughter to [employer]. Enjoyed his meal. Slept about 4 h. Up early, worked on word search, then back to nap. Anticipating ECT in AM. EXAM: In usual clothes. Calm, less negative today. Fair eye contact. Speech fluent. Mood uplands division director. Thought logical. Denies SI. Insight and judgment fair. BS about 200s except single 375 on return frombig meal. BP 128/67 Pulse 78 Temp(Src) 35.9 ??C (96.6 ??F) (Tympanic) Resp 16 Ht 185.4 cm (72.99) Wt 99.973 kg (220 lb 6.4 oz) BMI 29.08 kg/m2 SpO2 97% ASSESSMENT: MDE, severe. Improvement with ECT and milieu.ECT tomorrw. May start to cut back on percocet and lorazepam as discharge approaches and mood improves. Biatta arrived, Discussed with Pharmacy. Ordered. PLAN: As per treatment team. Mray Jauregui MD Attending Psychiatrist housing liaison Pager [phone] * Mary Jauregui MD - 04/14/2011 1650 EST 04/14/2011 ATTENDING SURVEYING TECHNICIAN NOTE REASON FOR HOSPITALIZATION: depression HOSPITAL DAY: LOS: 23 days INTERIM HISTORY: Events of past 24h reviewed with nursing staff. Lying on bed. Anticipating pass today. Had phone call with daughter. dislikes holidays. Today improved spirits. EXAM: In usual clothes. Less caustic today. Fair eye contact. Speech fluent. Mood better, affect more relaxed. Thought logical. Denies SI. Insight and judgment fair. BP 122/76 Pulse 83 Temp(Src) 35.9 ??C (96.6 ??F) (Tympanic) Resp 18 Ht 185.4 cm (72.99) Wt 99.973 kg (220 lb 6.4 oz) BMI 29.08 kg/m2 SpO2 97% ASSESSMENT: MDE, severe. Improvement with ECT and milieu. Next treatment Wed. Pass with daughter analia. PLAN: As per treatment team. Mary Jauregui MD Attending Psychiatrist housing liaison Pager [phone] * Katarzyna Rincon CSW - 04/14/2011 1509 EST Social Work Progress Note Intervention/Service: On-going assessment Met briefly with Shahnaz today. He has spent most of the day in his room, lying on his bed in the dark. He told me that he just feel like lying in bed. I said that he might feel better if he got upand out of his room, and he said, I probably would, but made no attempt to do so. He did eventually mention that his daughter was coming but said he'd not heard from her yet. He didn't want to call her but was glad to take me up on my offer to call. I did call and was able to confirm she would be coming to pick him up around 5:00 pm. He asked for the nurse to wake him a 4:00 so he could showerand be ready to go out. He did seem to be looking forward to getting off the unit. * Vinicio Vora MD - 04/13/2011 1148 EST Attending Note 04/13/2011 Admit Date: 03/22/2011 Hospital day: LOS: 22 days Legal Status: Legal status: Voluntary Observation Level: Observation / visual check: Routine (Q hour day / elaina, Q 1/2 hour night) Locus/Risk of Harm: Current locus of harm: 3 Reason for Admission: S/p overdose Clinical Update/24-hour Events: Per nursing patient continues to exhibit a depressed affect but is increasingly engaged on the unit. Sleep is improving (with Ambien). Opiate used appropriately for pain complaints. This morning, patient has no complaints. He denies self-harm or suicidal thinking. Current Facility-Administered Medications Medication Route Frequency ??? famotidine (PEPCID) tablet 20 mg Oral BID ??? sodium chloride 0.9 % flush 3 mL Intravenous PRN ??? oxycodone-acetaminophen (PERCOCET) 5-325 mg per tablet 1 Tab Oral BID PRN ??? ibuprofen (MOTRIN) tablet 600 mg Oral TID PRN ??? zolpidem (AMBIEN) tablet 10 mg Oral QHS ??? lorazepam (ATIVAN) tablet 1 mg Oral AT BEDTIME PRN ??? influenza vaccine [id number] (PF) (FLUZONE) 45 mcg (15 mcg x 3)/0.5 mL IM injection-syringe 0.5 mL Intramuscular ONCE ??? nortriptyline (PAMELOR) capsule 100 mg Oral QHS ??? lorazepam (ATIVAN) tablet 1 mg Oral BID PRN ??? aspirin chewable tablet 81 mg Oral DAILY ??? clopidogrel (PLAVIX) tablet 75 mg Oral DAILY ??? glipiZIDE (GLUCOTROL) CR tablet 5 mg Oral DAILY ??? lisinopril (PRINIVIL, ZESTRIL) tablet 10 mg Oral DAILY ??? metformin (GLUCOPHAGE) tablet 1,000 mg Oral BID ??? Fenofibrate Nanocrystallized (TRICOR) tablet 145 mg Oral DAILY ??? dextrose 50 % solution 12.5 g Intravenous PRN ??? glucagon (human recombinant) injection 1 mg Intramuscular PRN ??? insulin aspart (NOVOLOG FlexPen) injection Subcutaneous TID WC ??? nicotine inhaler (delivery device) Inhalation PRN ??? nicotine (NICOTROL) 10 mg inhaler 1 Inhaler Inhalation Q2H PRN ??? nadolol (CORGARD) tablet 20 mg Oral DAILY Mental Status Exam: Cooperative and in no distress. Lying in bed. Moderately disheveled with minimal eye contact duringinterview. Speech has normal rate, rhythm, volume with decreased spontaneity. No psychomotor abnormalities. Mood is ok and affect dysphoric and restricted. Thought process is logical, goal-directed. Thought content reality-based. Denies SI. Insight fair; Judgment fair. Impulse control intact. Physical Exam: NA BP 115/68 Pulse 89 Temp(Src) 36.1 ??C (97 ??F) (Tympanic) Resp 16 Ht 185.4 cm (72.99) Wt99.973 kg (220 lb 6.4 oz) BMI 29.08 kg/m2 SpO2 98% Assessment: Mr. Santiago is a [age] year-old man with a history of recurrent depressive episodes. No receiving ECT with no consistent improvement noted thus far (only has had 5 treatments). ECT to continue along with TCA. Working diagnosis remains MDD with psychotic features (resolving). Plan: 1. No changes to medication regimen. 2. Reminded patient of ECT related orders. Next treatment on 04-16. 3. No changes to level of restriction, locus of risk, or legal status. 4. Pass scheduled for Thursday. Vinicio Vora MD 04/13/2011 11:48 * Vinicio Vora MD - 04/12/2011 1441 EST Attending Note 04/12/2011 Admit Date: 03/22/2011 Hospital day: LOS: 21 days Legal Status: Legal status: Voluntary Observation Level: Observation / visual check: Routine (Q hour day / elaina, Q 1/2 hour night) Locus/Risk of Harm: Current locus of harm: 3 Reason for Admission: S/p overdose Clinical Update/24-hour Events: Per nursing patient was agitated yesterday secondary to ECT being cancelled (intake p midnight). Used Ambien last night with repeat. Slept 5.5 hrs. Using Percocet for pain. This morning, patient has no complaints. He denies self-harm or suicidal thinking. Current Facility-Administered Medications Medication Route Frequency ??? famotidine (PEPCID) tablet 20 mg Oral BID ??? sodium chloride 0.9 % flush 3 mL Intravenous PRN ??? oxycodone-acetaminophen (PERCOCET) 5-325 mg per tablet 1 Tab Oral BID PRN ??? ibuprofen (MOTRIN) tablet 600 mg Oral TID PRN ??? zolpidem (AMBIEN) tablet 10 mg Oral QHS ??? lorazepam (ATIVAN) tablet 1 mg Oral AT BEDTIME PRN ??? influenza vaccine [id number] (PF) (FLUZONE) 45 mcg (15 mcg x 3)/0.5 mL IM injection-syringe 0.5 mL Intramuscular ONCE ??? nortriptyline (PAMELOR) capsule 100 mg Oral QHS ??? lorazepam (ATIVAN) tablet 1 mg Oral BID PRN ??? aspirin chewable tablet 81 mg Oral DAILY ??? clopidogrel (PLAVIX) tablet 75 mg Oral DAILY ??? glipiZIDE (GLUCOTROL) CR tablet 5 mg Oral DAILY ??? lisinopril (PRINIVIL, ZESTRIL) tablet 10 mg Oral DAILY ??? metformin (GLUCOPHAGE) tablet 1,000 mg Oral BID ??? Fenofibrate Nanocrystallized (TRICOR) tablet 145 mg Oral DAILY ??? dextrose 50 % solution 12.5 g Intravenous PRN ??? glucagon (human recombinant) injection 1 mg Intramuscular PRN ??? insulin aspart (NOVOLOG FlexPen) injection Subcutaneous TID WC ??? nicotine inhaler (delivery device) Inhalation PRN ??? nicotine (NICOTROL) 10 mg inhaler 1 Inhaler Inhalation Q2H PRN ??? nadolol (CORGARD) tablet 20 mg Oral DAILY Mental Status Exam: Cooperative and in no distress. Lying in bed. Moderately disheveled with minimal eye contact duringinterview. Speech has normal rate, rhythm, volume with decreased spontaneity. No psychomotor abnormalities. Mood is ok and affect dysphoric and restricted. Thought process is logical, goal-directed. Thought content reality-based. Denies SI. Insight fair; Judgment fair. Impulse control intact. Physical Exam: NA BP 132/77 Pulse 76 Temp(Src) 36.1 ??C (97 ??F) (Tympanic) Resp 18 Ht 185.4 cm (72.99) Wt99.973 kg (220 lb 6.4 oz) BMI 29.08 kg/m2 SpO2 97% Assessment: Mr. Santiago is a [age] year-old man with a history of recurrent depressive episodes. No receiving ECT with no consistent improvement noted thus far (only has had 5 treatments). ECT to continue along with TCA. Working diagnosis remains MDD with psychotic features (resolving). Plan: 1. No changes to medication regimen. 2. Reminded patient of ECT related orders. Next treatment on 04-16. 3. No changes to level of restriction, locus of risk, or legal status. 4. Pass scheduled for Thursday. Vinicio Vora MD 04/12/2011 14:41 * Tamika Cordero - 04/11/2011 1529 EST Active Multi-Disciplinary problems: ALTERED THOUGHT PROCESSES [604265] (03/22/11) ALTERATION IN SLEEP [635895] (03/23/11) KNOWLEDGE DEFICIT [984915] (04/07/11) NUTRITION [194059] (04/07/11) RISK FOR INFECTION [237580] (04/07/11) GLYCEMIA IMBALANCE [771174] (04/07/11) ANXIETY [741253] (04/09/11) Ineffective Coping [151573] (04/09/11) SELF CARE DEFICIT [132954] (04/09/11) ALTERATION IN MOOD [669483] (04/09/11) Patient Active Problem List Diagnoses ??? Diabetes mellitus ??? Major depression Data: Was eating during the night and consequently the anesthesiologist cancelled the ECT for today. The next treatment will occur on Thursday. The patient was irritated and annoyed that the treatment had been cancelled. The patient stated that it was ridiculous. His finger stick at 0758 was 106. The maria isabel was discontinued at patient's request. Requested and received Ativan 1 mg po for anxietywith relief. Ate breakfast late and went to bed. Refused a finger stick at 12 and refused lunch. Stayed in bed for the remainder of the day. Action: Assess for suicidal ideation. Offer one to one. Encourage groups. Utilize teaching opportunities. Monitor for pain. Response: Was angry that the ECT was cancelled. Did not participate in groups. Refuse finger stick at noon and refused lunch. Remained on his bed for most of the afternoon. Did not request medicationfor pain. Did not verbalize suicidal ideation. Tamika Cordero RN 04/11/2011 15:30 * Mary Jauregui MD - 04/11/2011 1449 EST Inpatient Psychiatry Daily Progress Note 04/11/2011 Admit Date: 03/22/2011 Hospital day: LOS: 20 days Legal Status: Legal status: Voluntary Observation Level: Observation / visual check: Routine (Q hour day / elaina, Q 1/2 hour night) Locus/Risk of Harm: Current locus of harm: 3 Reason for Admission/Chief Complaint: S/p Ambien overdose (originally involuntarily hospitalized) Clinical Update/24-hour Events: Pt ate ice cream after midnight (and eating ice chips this morning)despite NPO order for ECT, which had to be cancelled this morning. He claims he lost track of time and wanted to snack. He felt missing ECT this morning was a waste, seeming frustrated yet not blaming anyone. He was able to articulate the reason for being NPO when asked. He reports attending a couple of groups but still quite neagtive in his thoughts. He appeared to brighten a bit when discussing his pass for 4 hours on Thursday. Current Facility-Administered Medications Medication Route Frequency ??? sodium chloride 0.9 % flush 3 mL Intravenous PRN ??? oxycodone-acetaminophen (PERCOCET) 5-325 mg per tablet 1 Tab Oral BID PRN ??? ibuprofen (MOTRIN) tablet 600 mg Oral TID PRN ??? zolpidem (AMBIEN) tablet 10 mg Oral QHS ??? lorazepam (ATIVAN) tablet 1 mg Oral AT BEDTIME PRN ??? influenza vaccine [id number] (PF) (FLUZONE) 45 mcg (15 mcg x 3)/0.5 mL IM injection-syringe 0.5 mL Intramuscular ONCE ??? nortriptyline (PAMELOR) capsule 100 mg Oral QHS ??? lorazepam (ATIVAN) tablet 1 mg Oral BID PRN ??? aspirin chewable tablet 81 mg Oral DAILY ??? clopidogrel (PLAVIX) tablet 75 mg Oral DAILY ??? glipiZIDE (GLUCOTROL) CR tablet 5 mg Oral DAILY ??? lisinopril (PRINIVIL, ZESTRIL) tablet 10 mg Oral DAILY ??? metformin (GLUCOPHAGE) tablet 1,000 mg Oral BID ??? Fenofibrate Nanocrystallized (TRICOR) tablet 145 mg Oral DAILY ??? dextrose 50 % solution 12.5 g Intravenous PRN ??? glucagon (human recombinant) injection 1 mg Intramuscular PRN ??? insulin aspart (NOVOLOG FlexPen) injection Subcutaneous TID WC ??? nicotine inhaler (delivery device) Inhalation PRN ??? nicotine (NICOTROL) 10 mg inhaler 1 Inhaler Inhalation Q2H PRN ??? nadolol (CORGARD) tablet 20 mg Oral DAILY Review of Systems: Pt eating fine. Slept about 5 hours. Glucose levels controlled with insulin. Mental Status Exam: Elderly looking man with graying hair as well as pike facial hair, lying on bed, not quite sleeping, in dark room this afternoon. Looks disheveled. Is alert upon sitting up, agrees to have light turned on. Perhaps some psychomotor slowing, but no gross abnormalities. Speech: essentially normal RRV, does not speak very much but answers questions. Mood: frustrated. Affect: congruent and dysphoric, restricted except perhaps for brief brightening when discussing upcoming pass off unit. Thought process: coherent, no tangentiality. Thought content: focused on frustration of not receiving ECT because of his eating. No SI. No evidence of psychosis. Insight: fair at best. Difficult to assess in brief interview. Judgment: poor with respect to compliance with NPO order. Does not appear impulsive. BP 125/77 Pulse 81 Temp(Src) 36.8 ??C (98.2 ??F) (Tympanic) Resp 16 Ht 185.4 cm (72.99) Wt 99.973 kg (220 lb 6.4 oz) BMI 29.08 kg/m2 SpO2 98% Data Review: Labs: Recent Results (from the past 24 hour(s)) GLUCOSE, GLUCOMETER Collection Time 04/10/11 1700 Component Value Range Glucose, Fingerstick 226 (*) 70 - 100 (mg/dl) Rodent Control Worker ID [id number] GLUCOSE, GLUCOMETER Collection Time 04/10/11 2109 Component Value Range Glucose, Fingerstick 280 (*) 70 - 100 (mg/dl) Rodent Control Worker ID [id number] GLUCOSE, GLUCOMETER Collection Time 04/11/11 0758 Component Value Range Glucose, Fingerstick 106 (*) 70 - 100 (mg/dl) Rodent Control Worker ID [id number] Assessment/Formulation: Mr. Santiago is a 60-year-old man who has had recurrent episodes (at least 2hospitalizations) since his second in 2009 (note: diagnosis was changed to recurrent MDD below). Pt has had some response to ECT but he has not consistently improved thus far. He missed ECTtreatment #6 today, because he ate after midnight despite knowing the order. ECT will resume on 03/21. He has shown no evidence of psychosis since stopping perphenazine, which he had been on when hospitalized at [place] in Feb 2011. However, his thoughts remain quite negative at this time. Willcontinue with nortriptyline and ECT. Diagnosis: Terry I: Major depression, recurrent, with psychotic features. Terry II: Deferred Terry III: HTN, CAD s/p PCI with stent, type II DM, h/o nephrolithiasis, s/p cholecystectomy Plan: - Continue current medications. Pt has been consistently using Ativan bid prn. Need to monitor thisuse and assess how he is benefitting from it. - Continue with ECT #6 on 04/16. Pt reminded to be NPO after midnight and order written. - Pass scheduled with family on Saturday 04/14. - Assess need for family meeting, particularly after pass on Thursday. The following risk/benefits of treatment were discussed with the patient: Risk of eating prior to ECT discussed. Pt understands. Discharge Plan: Will depend on improvement in depression and response to treatment. Josue Ward MD 04/11/2011 14:50 Psychiatry Attending Attestation: I have personally seen and examined the patient Thursday04/11/2011. Treatment plan reviewed with theteam. I spent a total of 30 minutes with this patient in direct floor time and 20 minutes of that time was spent in counseling and coordination of care regarding status of symptoms, situation of missing ECT, planning for holiday weekend. I agree with and have edited in italics the findings and planof care as documented in the resident's note. MARY JAUREGUI MD Pager [phone] Attending, Inpatient Psychiatry, [facility] * Kim Davis - 04/10/2011 1800 EST Open Art S/O: Shahnaz attended the end of the [employer] group and worked on coloring a mandala. He talked withothers and made a couple of jokes with a wry smile. A: Social, smiling at times, more talkative than I have seen him previously. P: Continue to attend groups. * Mary Jauregui MD - 04/10/2011 0936 EST Inpatient Psychiatry Daily Progress Note 04/10/2011 Admit Date: 03/22/2011 Hospital day: LOS: 19 days Legal Status: Legal status: Voluntary Observation Level: Observation / visual check: Routine (Q hour day / elaina, Q 1/2 hour night) Locus/Risk of Harm: Current locus of harm: 3 Reason for Admission/Chief Complaint: Depression / Status Post Intentional Overdose Clinical Update/24-hour Events: Mr. Shahnaz Santiago is a 60-year-old male with a past Psychiatric history of Major Depression with onset following the of his in August of 2009, seen on his nineteen day after admission following a serious intentional overdose. The patient's symptoms have been poorly responsive to pharmacotherapy and he has begun a primary course of ECT during this hospitalization, having undergone his fifth treatment without event yesterday. Overnight nursing reports the patient was pleasant, cooperative, and social. The patient requested PRN percocet for shoulder pain and PRN HS Ativan last night, along with a PRN dose of Ambien. The patient slept well, and was without acute events. Today the patient is seen and is found resting, but awake in his room. The patient states to be feeling More even-keeled, explaining that both his mood and his outlook on his future have improved since admission. The patient is counseled to use the PRN percocet judiciously. The patient denies anyadverse effects from the ECT or from his medications. The patient has no acute concerns. Current Facility-Administered Medications Medication Route Frequency ??? lorazepam (ATIVAN) 1 mg tablet ??? sodium chloride 0.9 % flush 3 mL Intravenous PRN ??? oxycodone-acetaminophen (PERCOCET) 5-325 mg per tablet 1 Tab Oral BID PRN ??? ibuprofen (MOTRIN) tablet 600 mg Oral TID PRN ??? zolpidem (AMBIEN) tablet 10 mg Oral QHS ??? lorazepam (ATIVAN) tablet 1 mg Oral AT BEDTIME PRN ??? influenza vaccine [id number] (PF) (FLUZONE) 45 mcg (15 mcg x 3)/0.5 mL IM injection-syringe 0.5 mL Intramuscular ONCE ??? nortriptyline (PAMELOR) capsule 100 mg Oral QHS ??? lorazepam (ATIVAN) tablet 1 mg Oral BID PRN ??? aspirin chewable tablet 81 mg Oral DAILY ??? clopidogrel (PLAVIX) tablet 75 mg Oral DAILY ??? glipiZIDE (GLUCOTROL) CR tablet 5 mg Oral DAILY ??? lisinopril (PRINIVIL, ZESTRIL) tablet 10 mg Oral DAILY ??? metformin (GLUCOPHAGE) tablet 1,000 mg Oral BID ??? Fenofibrate Nanocrystallized (TRICOR) tablet 145 mg Oral DAILY ??? dextrose 50 % solution 12.5 g Intravenous PRN ??? glucagon (human recombinant) injection 1 mg Intramuscular PRN ??? insulin aspart (NOVOLOG FlexPen) injection Subcutaneous TID WC ??? nicotine inhaler (delivery device) Inhalation PRN ??? nicotine (NICOTROL) 10 mg inhaler 1 Inhaler Inhalation Q2H PRN ??? nadolol (CORGARD) tablet 20 mg Oral DAILY Review of Systems: Appetite was full, Patient denies medication side effects. Mental Status Exam: Mr. Santiago is an overweight male, resting, but awake in his room. The patient is recently cleaned and appears his stated age. Behavior is cooperative and grossly appropriate. No dyskinesias. Eye contact remains improved from admission. Speech is normal rate and volume. Tone is slightly more animated. Mood is More even keeled, Affect is no longer blunted, but is constricted. Thought process is linear. Abstraction is intact. Insight is fair, judgement is fair. The patient is compliant with medications. Physical Exam: Deferred Today BP 121/66 Pulse 85 Temp(Src) 35.5 ??C (95.9 ??F) (Tympanic) Resp 20 Ht 185.4 cm (72.99) Wt 99.973 kg (220 lb 6.4 oz) BMI 29.08 kg/m2 SpO2 98% Data Review: Labs: Recent Results (from the past 24 hour(s)) GLUCOSE, GLUCOMETER Collection Time 04/09/11 1049 Component Value Range Glucose, Fingerstick 221 (*) 70 - 100 (mg/dl) Rodent Control Worker ID [id number] GLUCOSE, GLUCOMETER Collection Time 04/09/11 1211 Component Value Range Glucose, Fingerstick 218 (*) 70 - 100 (mg/dl) Rodent Control Worker ID [id number] GLUCOSE, GLUCOMETER Collection Time 04/09/11 1729 Component Value Range Glucose, Fingerstick 168 (*) 70 - 100 (mg/dl) Rodent Control Worker ID [id number] GLUCOSE, GLUCOMETER Collection Time 04/09/11 2120 Component Value Range Glucose, Fingerstick 295 (*) 70 - 100 (mg/dl) Rodent Control Worker ID [id number] GLUCOSE, GLUCOMETER Collection Time 04/10/11 0759 Component Value Range Glucose, Fingerstick 221 (*) 70 - 100 (mg/dl) Rodent Control Worker ID [id number] Other studies:N/A Assessment/Formulation: Mr. Shahnaz Santiago is a 60-year-old male with a past psychiatric history of major depression with onset following the of his in August of 2009, admitted after a serious intentional overdose. The patient was discharged from the [facility] on 03/19/11 after a two week stay for Depressive symptoms. The patient is currently midcycle through his first course of ECT. The patient endorses significant improvement in mood symptoms. Affect is more animated. Patient is engaging in futuristic thinking. Patient plans to continue with tri-weekly ECT treatments. No changes today. Diagnosis: Terry I: Major Depression, single episode, with psychotic features. Terry II: Deferred. Terry III: HTN, CAD s/p PCI with stent, type II DM, h/o nephrolithiasis, s/p cholecystectomy Plan: 1.) Proceed with ECT treatment #6 Thursday. Tri-weekly ECT to continue. 2.) No changes in medication today. 3.) Attending likely to provide 4 hour pass with his daughter on Thursday. 4.) Will seek a family meeting, likely next Thursday. Discharge Plan: Unclear at this time, pending clinical status. Arthur Davila MD 04/10/2011 9:37 Psychiatry Attending Attestation: I have personally seen and examined the patient today. Treatment plan reviewed with the team. I spent a total of30 minutes with this patient in direct floor time and 17 minutes of that time was spentin counseling and coordination of care regarding status of symptoms, planning for holiday weekend. I agree with and have edited in italics the findings and plan of care as documented in the resident's note. MARY JAUREGUI MD Pager [phone] Attending, Inpatient Psychiatry, [facility] * Mary Jauregui MD - 04/09/2011 0902 EST Inpatient Psychiatry Daily Progress Note 04/09/2011 Admit Date: 03/22/2011 Hospital day: LOS: 18 days Legal Status: Legal status: Voluntary Observation Level: Observation / visual check: Routine (Q hour day / elaina, Q 1/2 hour night) Locus/Risk of Harm: Current locus of harm: 3 Reason for Admission/Chief Complaint: Depression / Status Post Intentional Overdose Clinical Update/24-hour Events: Mr. Shahnaz Santiago is a 60-year-old male with a past Psychiatric history of Major Depression with onset following the of his in August of 2009, seen on his eighteenth day after admission following a serious intentional overdose. The patient's symptoms have been poorly responsive to pharmacotherapy and he has begun a primary course of ECT during this hospitalization, and is scheduled to undergo his fifth treatment this morning. The patient's medication regimen has been simplified, as hisprior to admission perphenazine has been discontinued. Overnight nursing reports the patient attended the [employer] group where he was observed to be relatively brighter, slept well, remained compliant with medications, requested PRN Ativan and PRN Percocet, and remained without acute events. Today the patient is seen and is found to be watching television in the common room before his ECT procedure. The patient states to be feeling I'm empty, but I think I'm getting better. The patientstates that he does feel improved from admission. The patient denies any adverse effects from the ECT or from his medications. The patient has no acute concerns. Current Facility-Administered Medications Medication Route Frequency ??? lorazepam (ATIVAN) 1 mg tablet ??? sodium chloride 0.9 % flush 3 mL Intravenous PRN ??? oxycodone-acetaminophen (PERCOCET) 5-325 mg per tablet 1 Tab Oral BID PRN ??? ibuprofen (MOTRIN) tablet 600 mg Oral TID PRN ??? zolpidem (AMBIEN) tablet 10 mg Oral QHS ??? lorazepam (ATIVAN) tablet 1 mg Oral AT BEDTIME PRN ??? influenza vaccine [id number] (PF) (FLUZONE) 45 mcg (15 mcg x 3)/0.5 mL IM injection-syringe 0.5 mL Intramuscular ONCE ??? nortriptyline (PAMELOR) capsule 100 mg Oral QHS ??? lorazepam (ATIVAN) tablet 1 mg Oral BID PRN ??? aspirin chewable tablet 81 mg Oral DAILY ??? clopidogrel (PLAVIX) tablet 75 mg Oral DAILY ??? glipiZIDE (GLUCOTROL) CR tablet 5 mg Oral DAILY ??? lisinopril (PRINIVIL, ZESTRIL) tablet 10 mg Oral DAILY ??? metformin (GLUCOPHAGE) tablet 1,000 mg Oral BID ??? Fenofibrate Nanocrystallized (TRICOR) tablet 145 mg Oral DAILY ??? dextrose 50 % solution 12.5 g Intravenous PRN ??? glucagon (human recombinant) injection 1 mg Intramuscular PRN ??? insulin aspart (NOVOLOG FlexPen) injection Subcutaneous TID WC ??? nicotine inhaler (delivery device) Inhalation PRN ??? nicotine (NICOTROL) 10 mg inhaler 1 Inhaler Inhalation Q2H PRN ??? nadolol (CORGARD) tablet 20 mg Oral DAILY Review of Systems: Appetite was full, patient denies medication side effects. Mental Status Exam: Mr. Santiago is an overweight male, currently fully dressed in casual clothing sitting upright watching television in the common area. The patient is preparing to go to ECT. The patient appears his stated age. Behavior is cooperative and grossly appropriate. No dyskinesias. Eye contact is improved from admission. Speech is normal rate and volume. Mood is I'm empty but getting better, affect is no longer blunted, but is constricted. Thought process is linear, thought content focuses on pending ECT. Insight is fair, judgement is poor, although the patient is compliant with medications. Physical Exam: Deferred Today BP 119/68 Pulse 81 Temp(Src) 36.3 ??C (97.4 ??F) (Tympanic) Resp 18 Ht 185.4 cm (72.99) Wt 99.973 kg (220 lb 6.4 oz) BMI 29.08 kg/m2 SpO2 98% Data Review: Labs: Recent Results (from the past 24 hour(s)) GLUCOSE, GLUCOMETER Collection Time 04/08/11 1141 Component Value Range Glucose, Fingerstick 254 (*) 70 - 100 (mg/dl) Rodent Control Worker ID [id number] GLUCOSE, GLUCOMETER Collection Time 04/08/11 1722 Component Value Range Glucose, Fingerstick 163 (*) 70 - 100 (mg/dl) Rodent Control Worker ID [id number] GLUCOSE, GLUCOMETER Collection Time 04/08/11 2104 Component Value Range Glucose, Fingerstick 228 (*) 70 - 100 (mg/dl) Rodent Control Worker ID [id number] GLUCOSE, GLUCOMETER Collection Time 04/09/11 0759 Component Value Range Glucose, Fingerstick 177 (*) 70 - 100 (mg/dl) Rodent Control Worker ID [id number] Other studies:N/A Assessment/Formulation: Mr. Shahnaz Santiago is a 60-year-old male with a past psychiatric history of major depression with onset following the of his in August of 2009, admitted after a serious intentional overdose. The patient was discharged from the [facility] on 03/19/11 after a two week stay for Depressive symptoms. The patient is currently midcycle through his first course of ECT. The patient isimproved from the time of admission. Depressed mood persists, but thoughts of are fewer. Affect is improved from admission. Trough Nortriptyline level is 87, which is within the therapeutic concentration. Patient plans to continue with tri-weekly ECT treatments. Diagnosis: Terry I: Major Depression, single episode, with psychotic features. Terry II: Deferred Terry III: HTN, CAD s/p PCI with stent, type II DM, h/o nephrolithiasis, s/p cholecystectomy Plan: 1.) Proceed with ECT treatment #5 today. Tri-weekly ECT to continue 2.) Effective today the Perphenazine will be discontinued. 3.) Patient to continue Percocet BID PRN for shoulder pain, with instruction clearly given today that the patient will not be provided with this medication by the inpatient team. 4.) Attending likely to provide pass during upcoming Holiday. 5.) No change in Nortriptyline dose as serum trough level is therapeutic. Discharge Plan: Unclear at this time, pending clinical status. Arthur Davila MD 04/09/2011 9:03 Psychiatry Attending Attestation: I have personally seen and examined the patient today. Treatment plan reviewed with the team. I spent a total of 36 minutes with this patient in direct floor time and 20 minutes of that time was spent in counseling and coordination of care regarding status of symptoms, meeting with daughter, progress of ECT. I agree with and have edited in italics the findings and plan of care as documented in the resident's note. MARY JAUREGUI MD Pager [phone] Attending, Inpatient Psychiatry, [facility] * Fantasma Barrera - 04/08/20111928 EST S/O Pt. attended [employer] group for 60 minutes. Pt. colored a picture with markers. Pt. made appropriate small talk throughout. Pt. shared some of his hobbies with group. Pt. shared that he enjoys photography and has aspirations to re-engage in that activity upon discharge. Pt. appeared knowledgeable about photography and shared information about the type of camera he owns and the different features it has. Pt. was observed to be excited when talking about his love of photography. Pt. made a few jokes as well. Pt. Mentioned enjoying the group as a way to forget about the stuff that's in yourhead all the time. You just focus on the art instead..... A/ calm, composed, inc soc, inc activity, brighter, more engaged P/ continue attending groups * Mary Jauregui MD - 04/08/2011 1800 EST 04/08/2011 ATTENDING NOTE PROBLEM (ID and CC): Depression HOSPITAL DAY: LOS: 17 days HISTORY: Continues much more agreeable today. Social, cooperative. 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 shoulder still bothers him. Discussed cutting back on medication starting with perphenazine. Also discussed plans for upcoming holiday weekend. EXAM: Better groomed, more fully dressed. Lying on bed, relaxed, no pain behavior. Calm, pleasant. Good eye contact. Mood good, affect modestly brighter. Thought reasonable. Without delusions or hallucinations. Denies SI. Insight and judgment fair. BP 119/66 Pulse 90 Temp(Src) 36.5 ??C (97.7 ??F) (Tympanic) Resp 12 Ht 185.4 cm (72.99) Wt 99.973 kg (220 lb 6.4 oz) BMI 29.08 kg/m2 SpO2 98% ASSESSMENT: MDE, severe.ECT #4. Improvement. Will d/c typical antipsychotic now, started initially for treatment-resistant depression. Will plan to continue Nortriptyline as prophylactic antidepressant since he has a good blood level and is tolerating. Next treatment tomorrow, tolerating. He notes and is glad for the benefit. Family will visit [facility] and will be good to get their feedback. Percocet will be d/c'd prior to discharge. PLAN: 1. continue ECT treatment with next on Thu. 2. D/c perphenazine 3. Continue Percocet BID prn for shoulder pain 4. Plan for time off with family during holiday I have personally seen and examined the patient today. Treatment plan reviewed with the team. I spent a total of 30 minutes with this patient in direct floor time and 20 minutes of that time was spent in counseling and coordination of care regarding status of symptoms, Treatment Progress , med mgmt, weekend plan. MARY JAUREGUI MD Pager [phone] Attending, Inpatient Psychiatry, [facility] . * Nixon Schwartz LICSW - 04/08/2011 1424 EST [facility] Electroconvulsive Therapy Service Cognition & Depression Rating Date of Service: 04/08/2011 Time: 1400 Duration of Service: 20 minutes Folstein MMSE Total Score (Max. Total=27): 27 Level of Consciousness: Alert. Reasoning: intact Judgement: fair Fund of Knowledge: bilingual inside sales representative Diagnosis code: 296.34 Total MADRS Score (Very Severe 44; Severe 31; Moderate 25; Mild 15; Recovered 7): 28 Subjective Rating of Cognitive Dysfunction Anterograde Amnesia: Severe Retrograde Amnesia: Severe Assessment: No objective evidence of cognitive dysfunction. Mood: low with some improvement. Affect: restricted. Overall, patient exhibits some improvement in most areas of functioning. Today, he waslying in bed with the light off and later reported he was feeling under the weather with a sore throat. Patient was very cooperative with the interview and made a good connection with this interviewer. His irritable presentation of last week was not present today. Patient is s/p 4 Index R/Unilateral ECT. His next treatment is scheduled for 04/08/2011. Plan: Continue to monitor cognition and level of depression and Discuss findings with psychiatrist administering ECT: Drs. Walter & Josey. JOE PIERRE 04/08/2011 14:24 * Jw Carrasquillo - 04/07/20112028 EST S/O:Pt attended Leisure group, utilizing the Wii for leisure, recreation and relaxation. PT was in positive mood, even when the controller he was using kept malfunctioning. Pt appeared to keep a sense of humor about it and appeared engaged throughout the group. PT appeared to have no difficulties focusing on task and socializing with peers and staff. A:Positive, social, joking and calm P: Pt should be encouraged to attend groups. * Mary Jauregui MD - 04/07/2011 1812 EST 04/07/2011 ATTENDING NOTE PROBLEM (ID and CC): Depression HOSPITAL DAY: LOS: 16 days HISTORY: Much more agreeable today. Asked for and received Percocet over weekend, now asking that Inot discontinue it. Nights better, more sociable, though today stayed out of bed. Fourth ECT today. daughter visited this AM. I don't feel too bad. Notes that outside stresses still plague him. concerned about Biatta vs. Lantis. Let him know he can use Biatta if daughter brings in his rx. EXAM: Better groomed, more fully dressed. Calm, nearly pleasant. Fair eye contact. Gentle pleading regarding Percocet. More reasonable. Mood good spirits, affect more relaxed. Thought logical. Without delusions or hallucinations. Denies SI. Insight and judgment fair. BP 116/85 Pulse 78 Temp(Src) 37.2 ??C (99 ??F) (Tympanic) Resp 22 Ht 185.4 cm (72.99) Wt99.973 kg (220 lb 6.4 oz) BMI 29.08 kg/m2 SpO2 98% LAB: Nortriptyline 87 on 100 mg ASSESSMENT: ADRIANA, severe.ECT #4. Improvement. Will continue Percocet for now but told this will not be continued beyond hospital. PLAN: 1. continue ECT treatment with next on Thu. 2. Continuing current med mgmt for now, will reconsider after further ECT 3. Continue Percocet BID prn for shoulder pain I have personally seen and examined the patient today. Treatment plan reviewed with the team. I spent a total of 36 minutes with this patient in direct floor time and 20 minutes of that time was spent in counseling and coordination of care regarding status of symptoms, Progress in depression, concern about narcotic analgesia, review of treatment plan. MARY JAUREGUI MD Pager [phone] Attending, Inpatient Psychiatry, [facility] . * Stacy Holder - 04/07/2011 1633 EST Grief and Anger Group: S/O: Pt participated in the discussion of losses and spoke about the of his , his resignation from his job, and his move to [place]. Pt able to identify that watching his grandkids and being a part of their lives is a positive that has occurred from the losses and changes. A: inc in participation, engaged, increasing coping skills, identifying losses. P: To continue to participate in group and increase coping skills. * Tramaine Melvin (At) - 04/06/2011 1229 EST Morning Check-In: S/O: Pt is doing okay this morning, although he only slept 2-3 hours. Pt rated his mood as a 7/10, and one of his goals is to keep a good frame of mind. He would also like to read from the bible,make phone calls about his social security, and work on his plan for what to do after discharge. Ptsaid of his mood, I'm on an even keel right now, although he stated that he sometimes thinks he should be more emotional: I held things in for a lot of years. Pt spoke about his being frequently unkind to him when she was alive, and he speculated that he stopped feeling strong emotions in response to this. He talked about having the desire to leave her many times but being afraid of hurti ng her and so never acting on those wishes. 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 A: Pt increasing self insight, desiring to have stronger emotions, using humor, improved mood P: To continue to participate in groups. * Lele Daley MD PhD - 04/06/2011 0704 EST 04/06/2011 ATTENDING SURVEYING TECHNICIAN NOTE PROBLEM (ID and CC): depression HOSPITAL DAY: LOS: 15 days HISTORY: D/W Nursing. Events of last 24 hours reviewed. Has been engaging with his 1:1. Apparently his daughters have been looking for a place for him. Took his percocet for shoulder pain but says that he would like some at nighttime as well. Slept about 2 hours. EXAM: Awake and alert. Speech clear and coherent. Memory and attention appear intact. Mood: not too bad Affect: restricted to the low range. TP-LGD. TC- denies AVH/SI/HI. I/J- fair/fair BP 117/58 Pulse 68 Temp(Src) 36.5 ??C (97.7 ??F) (Tympanic) Resp 18 Ht 185.4 cm (72.99) Wt 99.973 kg (220 lb 6.4 oz) BMI 29.08 kg/m2 SpO2 98% MEDS: zolpidem 10 mg Oral QHS perphenazine 8 mg Oral QHS sodium chloride 0.9 % 3 mL Intravenous Q8H influenza vaccine [id number] (PF) 0.5 mL Intramuscular ONCE nortriptyline 100 mg Oral QHS aspirin chewable 81 mg Oral DAILY clopidogrel 75 mg Oral DAILY glipiZIDE 5 mg Oral DAILY lisinopril 10 mg Oral DAILY metformin 1,000 mg Oral BID Fenofibrate Nanocrystallized 145 mg Oral DAILY insulin aspart Subcutaneous TID WC nadolol 20 mg Oral DAILY ASSESSMENT: 60 y.o. male with MDE, severe getting ECT. PLAN: - Continue current meds. Change daily Percocet to BID for the pain in his shoulder. Lele Daley MD,PHD Attending Psychiatrist housing liaison Pager [phone] * Lele Daley MD PhD - 04/05/2011 0659 EST 04/05/2011 ATTENDING SURVEYING TECHNICIAN NOTE PROBLEM (ID and CC): depression HOSPITAL DAY: LOS: 14 days HISTORY: D/W Nursing. Events of last 24 hours reviewed. Intermittently irritable and frustrated. Took ativan and Ambien at bedtime, but then stayed up watching TV. Fingerstick before dinner 124, bedtime 200. Slept about 4 hours. Says that he has been having some pain in his right shoulder and that he had been getting hydromorphone for it as an outpatient. Other than that, no complaints. EXAM: Awake and alert. Speech clear and coherent. Memory and attention appear intact. Mood: not too bad Affect: restricted to the low range. TP-LGD. TC- denies AVH/SI/HI. I/J- fair/fair BP 115/68 Pulse 68 Temp(Src) 36.3 ??C (97.3 ??F) (Tympanic) Resp 17 Ht 185.4 cm (72.99) Wt 99.973 kg (220 lb 6.4 oz) BMI 29.08 kg/m2 SpO2 96% MEDS: zolpidem 10 mg Oral QHS perphenazine 8 mg Oral QHS sodium chloride 0.9 % 3 mL Intravenous Q8H influenza vaccine [id number] (PF) 0.5 mL Intramuscular ONCE nortriptyline 100 mg Oral QHS aspirin chewable 81 mg Oral DAILY clopidogrel 75 mg Oral DAILY glipiZIDE 5 mg Oral DAILY lisinopril 10 mg Oral DAILY metformin 1,000 mg Oral BID Fenofibrate Nanocrystallized 145 mg Oral DAILY insulin aspart Subcutaneous TID WC nadolol 20 mg Oral DAILY ASSESSMENT: 60 y.o. male with MDE, severe getting ECT. PLAN: - Continue current meds. Add once daily Percocet for the pain in his shoulder. Lele Daley MD,PHD Attending Psychiatrist housing liaison Pager [phone] * Nixon Schwartz, [facility] - 04/04/2011 2870 EST [facility] Electroconvulsive Therapy Service Cognition & Depression Rating Date of Service: 04/04/2011 Time: 1200 Duration of Service: 20 minutes Folstein MMSE Total Score (Max. Total=27): 27 Level of Consciousness: Alert. Reasoning: intact Judgement: fair Fund of Knowledge: bilingual inside sales representative Diagnosis code: 296.34 Total MADRS Score (Very Severe 44; Severe 31; Moderate 25; Mild 15; Recovered 7): 40 Subjective Rating of Cognitive Dysfunction Anterograde Amnesia: Severe Retrograde Amnesia: Severe Assessment: No objective evidence of cognitive dysfunction. Mood: very low. Affect: flat. SI= somewhat vague report of fluctuating thoughts. Patient remains severely depressed with nihilistic thoughts. He is very irritable and sees no hope for treatment helping him. He is s/p 2 Index R/Unilateral ECT. After the interview, patient's daughter commented on how grouchy he appears and that this is out of character for him. Explained to her that this is part of his depression and should improve as his depression lifts. Patient is scheduled for ECT #3 on 04/04/2011. Plan: Continue to monitor cognition and level of depression and Discuss findings with psychiatrist administering ECT: Dr. Walter. JOE PIERRE 04/04/2011 14:44 * Mary Jauregui MD - 04/04/2011 3524 EST 04/04/2011 ATTENDING NOTE PROBLEM (ID and CC): Depression HOSPITAL DAY: LOS: 13 days HISTORY: Is it normal to piss on myself? Attributes some incontinence to ECT. Discouraged, irritable, intolerant today. No SEs to ECT noted. Unhappy that breakfast tray was cold, dismissing RNs offer to warm it for him. Slept less well, interrupted. Not going well for me right now. Report suggests he was more pleasant later in last elaina. EXAM: Dressed in tshirt Barnard and akila pants. Sitting on bed, head down. fair eye contact. Speech fluent. Mood depressed, irritated. Affect congruent. Thought pessimistic, negative. Withoutdelusions or hallucinations. Denies current SI on the unit, though expresses hopelessness. Insight poor, judgment fair. BP 100/64 Pulse 77 Temp(Src) 36.2 ??C (97.2 ??F) (Tympanic) Resp 15 Ht 185.4 cm (72.99) Wt 99.973 kg (220 lb 6.4 oz) BMI 29.08 kg/m2 SpO2 97% ASSESSMENT: MDE, severe.ECT #3. continues to ruminate, be angry and frustrated with conditions around him. Yesterday, when examiner spoke with daughter, she stated I think you'll like him, when he is better. Will continue with plan, consider altering med regimen as effects of ECT more apparent. PLAN: 1. continue ECT treatment with next on Thursday. 2. Continuing current med mgmt for now, will reconsider after further ECT 3. No plans for visitors and time off for weekend. I have personally seen and examined the patient today. Treatment plan reviewed with the team. I spent a total of 26 minutes with this patient in direct floor time and 15 minutes of that time was spent in counseling and coordination of care regarding status of symptoms, reassurance about recovery, review of treatment planning. MARY JAUREGUI MD Pager [phone] Attending, Inpatient Psychiatry, [facility] . * Benito Lainez RN - 04/04/2011 0943 EST 935 - pt arrived pacu drowsy, arouses to follow commands, denies pain. 1000 - pt awake, memo po, c/o neck ache - medicated w IBU - report called to Rema TURNER 3 RN - ready for dc to floor * Yenny Brumfield - 04/03/2011 1942 EST Games Group: S/O: Pt initially declined invite to group but he did enter room midway and when invited to play in the next round he said that'll be okay. However approx 5 min left he left again. A: Pt minimally engaged with restricted affect. P: To continue to participate in groups. 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 Irritable other parts of day, jimmy after daugh arrival to discuss POA with SW and notary. No groups. Its just a sad thing to feel this way. Bleak, pessimistic. Never get out of it. EXAM: Dressed in tshirt and akila pants. Awoke from resting. Face appears slightly more relaxed, more direct eye contact. Speech fluent. Mood depressed, irritated. Affect congruent. Thought pessimistic, negative. Without delusions or hallucinations. Denies current SI on the unit, though expresses hopelessness. Insight poor, judgment fair. BP 125/76 Pulse 83 Temp(Src) 36.5 ??C (97.7 ??F) (Tympanic) Resp 16 Ht 185.4 cm (72.99) Wt 99.973 kg (220 lb 6.4 oz) BMI 29.08 kg/m2 SpO2 98% ASSESSMENT: MDLiv, severe.Subtle changes seen by family, staff. He continues to have bleak outlook which translates into irritability in his interactions with others. Will continue current treatment plan. Suggest he arrange for time off with family over weekend. PLAN: 1. continue ECT treatment next tomorrow. 2. Continuing current med mgmt for now, will reconsider after further ECT I have personally seen and examined the patient today. Treatment plan reviewed with the team. I spent a total of 30 minutes with this patient in direct floor time and 17 minutes of that time was spent in counseling and coordination of care regarding status of symptoms, education/ reassurance about recovery, review of treatment planning. MARY JAUREGUI MD Pager [phone] Attending, Inpatient Psychiatry, [facility] . * Stacy Holder - 04/03/2011 9513 EST Writing for Health Group: S/O: Pt was sitting in the Group/ TV room finishing his lunch when the group started. Pt spoke about being unprepared for winter here in [place] and that he didn't have any warm clothes. He also spoke about having his third ECT tomorrow. A female peer (DANILO) spoke about having ECT and was supportive of his having the treatments. Pato asked,What will they do if the treatments don't help. Pt was encouraged to speak to his doctor about this concern. Pt left the group after writing his goals for theday, week and for roasterman and did not return to the group. A: Engaged, increasing activities, sad, negative thinking, depressed affect. P: To continue to participate in groups. * Katarzyna Rincon CSW - 04/03/2011 1241 EST Social Work Progress Note Intervention/Service: Mr. Santiago's daughter, Nkechi Weber, brought a POA to the unit for signing today. The POA wasreviewed with Mr. Santiago and his daughter. Mr. Santiago appears to be of sound mind, and he freely consented to signing the document. Dr. Jauregui was consulted and stated he thought Mr. Santiago to be of sound mind and had no objections to the document being signed today. The POA was notarized and isnow in the patient's medical record on the unit, and the original is in the hands of his daughter Nkechi. * Katarzyna Rincon CSW - 04/02/2011 1416 EST Social Work Progress Note Intervention/Service: On-going assessment Stopped by to see Shahnaz today. He was in bed with the lights out when I entered his room. He did not want to talk with me. He did say that he'd spoken with his daughter this morning before ECT but that he'd had little to say. While I was in with him Father Conrad stopped by, and Shahnaz said, Tell him I don't want to see him . . .tell him to go away. Father Conrad said he'd be by tomorrow, and I said the same and left. * Warren Rosa - 04/02/2011 1408 EST SPIRITUAL CARE NOTE Re: Shahnaz Santiago Patient is Pentec[employer]ism and has been Anointed with the Sacrament of the Sick. Date 04/02/2011 Page or Referral ? - Referral Time of Page/Call - [id number] Location - Sp3 Sacraments given: - Follow up necessary - Yes Comfort Care / End of Life - No Note: Shahnaz requested a forensic toxicologist visit. When I arrived he was feeling ill and did not want to see anyone. He was told that this forensic toxicologist will return tomorrow. Signed Warren Rosa [employer] Doctor Of Radiology Pager [phone] * Mary Jauregui MD - 04/02/2011 0854 EST Inpatient Psychiatry Daily Progress Note 04/02/2011 Admit Date: 03/22/2011 Hospital day: LOS: 11 days Legal Status: Legal status: Voluntary Observation Level: Observation / visual check: Routine (Q hour day / elaina, Q 1/2 hour night) Locus/Risk of Harm: Current locus of harm: 3 Reason for Admission/Chief Complaint: Depression / Status Post Intentional Overdose Clinical Update/24-hour Events: Mr. Shahnaz Santiago is a 60-year-old male with a past Psychiatric history of Major Depression with onset following the of his in August of 2009, seen on his eleventh day after admission following a serious intentional overdose. The patient's symptoms have been poorly responsive to pharmacotherapy and he underwent his first ECT treatment last . The patient was found to be improved the following day. Due to legal parameters the patient was not able to attend ECT on Thursday, however he did attend ECT today which went well, and plans to be back on the tri-weekly procedure schedule. The patient attended a Cognitive Processes group yesterday whereby he performed well. Overnight nursing reports the patient isolated last night, but was without acute events. Today the patient is seen in his room and is found resting before he is to go to ECT. The patient states to be feeling much the same as previously, and speaks at some length about his inability to take care of himself. The patient requests a pastoral care consult. The patient plans to undergo ECT today and is hopeful that this will help him feel better. No acute concerns. Seen post-ECT without c/o other than characteristic negativity. Current Facility-Administered Medications Medication Route Frequency ??? zolpidem (AMBIEN) tablet 10 mg Oral QHS ??? lorazepam (ATIVAN) tablet 1 mg Oral AT BEDTIME PRN ??? perphenazine (TRILAFON) tablet 8 mg Oral QHS ??? sodium chloride 0.9 % flush 3 mL Intravenous Q8H ??? influenza vaccine [id number] (PF) (FLUZONE) 45 mcg (15 mcg x 3)/0.5 mL IM injection-syringe 0.5 mL Intramuscular ONCE ??? nortriptyline (PAMELOR) capsule 100 mg Oral QHS ??? lorazepam (ATIVAN) tablet 1 mg Oral BID PRN ??? aspirin chewable tablet 81 mg Oral DAILY ??? clopidogrel (PLAVIX) tablet 75 mg Oral DAILY ??? glipiZIDE (GLUCOTROL) CR tablet 5 mg Oral DAILY ??? hydrochlorothiazide (HYDRODIURIL) tablet 12.5 mg Oral DAILY ??? lisinopril (PRINIVIL, ZESTRIL) tablet 10 mg Oral DAILY ??? metformin (GLUCOPHAGE) tablet 1,000 mg Oral BID ??? Fenofibrate Nanocrystallized (TRICOR) tablet 145 mg Oral DAILY ??? dextrose 50 % solution 12.5 g Intravenous PRN ??? glucagon (human recombinant) injection 1 mg Intramuscular PRN ??? insulin aspart (NOVOLOG FlexPen) injection Subcutaneous TID WC ??? nicotine inhaler (delivery device) Inhalation PRN ??? nicotine (NICOTROL) 10 mg inhaler 1 Inhaler Inhalation Q2H PRN ??? nadolol (CORGARD) tablet 20 mg Oral DAILY Review of Systems: Appetite was full, patient denies medication side effects. Mental Status Exam: Mr. Santiago is an overweight male laying awake in his bedroom, preparing to go to ECT. The patient appears his stated age. Behavior is cooperative and grossly appropriate. No dyskinesias. The patient's eyes are primarily downcast. Speech is normal rate and volume. Mood is I'm a wreck, af fect is blunted. Thought process is linear, thought content focuses on inability to care for self and pending ECT. Insight is fair, judgement is poor, although the patient is compliant with medications. Physical Exam: Deferred Today BP 124/75 Pulse 86 Temp(Src) 36.3 ??C (97.3 ??F) (Tympanic) Resp 14 Ht 185.4 cm (72.99) Wt 99.973 kg (220 lb 6.4 oz) BMI 29.08 kg/m2 SpO2 99% Data Review: Labs: Recent Results (from the past 24 hour(s)) GLUCOSE, GLUCOMETER Collection Time 04/01/11 1154 Component Value Range Glucose, Fingerstick 187 (*) 70 - 100 (mg/dl) Rodent Control Worker ID [id number] GLUCOSE, GLUCOMETER Collection Time 04/01/11 1703 Component Value Range Glucose, Fingerstick 200 (*) 70 - 100 (mg/dl) Rodent Control Worker ID [id number] GLUCOSE, GLUCOMETER Collection Time 04/01/11 2119 Component Value Range Glucose, Fingerstick 264 (*) 70 - 100 (mg/dl) Rodent Control Worker ID [id number] GLUCOSE, GLUCOMETER Collection Time 04/02/11 0803 Component Value Range Glucose, Fingerstick 130 (*) 70 - 100 (mg/dl) Rodent Control Worker ID [id number] Other studies:N/A Serum Nortriptyline level still pending. Assessment/Formulation: Mr. Shahnaz Santiago is a 60-year-old male with a past psychiatric history of major depression with onset following the of his in August of 2009, admitted after a serious intentional overdose. The patient was discharged from the [facility] on 03/19/11 after a two week stay for Depressive symptoms. The patient underwent his first course of ECT last and was found to be improved. The patient underwent ECT today. Depressed mood and thoughts of persist, but affect is slightly improved from admission. Trough Nortriptyline level is still pending. Patient plans to continue with tri- weekly ECT treatments. Diagnosis: Terry I: Major Depression, single episode, with psychotic features. Terry II: Deferred Terry III: HTN, CAD s/p PCI with stent, type II DM, h/o nephrolithiasis, s/p cholecystectomy Plan: 1.) Next ECT on Thursday. Tri-weekly schedule to continue. 2.) Trough Nortriptyline level still pending. Will address when results are available. 3.) Today we will discontinue the patient's HCTZ as he has been normotensive throughout stay. Lisinopril and the Beta-costa are unchanged. Remainder of medications unchanged. 4.) Pastoral Consult placed. 5.) Participation in groups again encouraged. Discharge Plan: Unclear at this time, pending clinical status. Arthur Davila MD 04/02/2011 8:54 Psychiatry Attending Attestation: I have personally seen and examined the patient today. Treatment plan reviewed with the team. I spent a total of 26 minutes with this patient in direct floor time and 15 minutes of that time was spent in counseling and coordination of care regarding status of symptoms, post ECT assessment. I agree with and have edited in italics the findings and plan of care as documented in the resident's note. MARY JAUREGUI MD Pager [phone] Attending, Inpatient Psychiatry, [facility] * Dewayne De León - 04/01/2011 2576 EST Cognitive Processes S/O: Reluctantly, patient read aloud some of the introductory materials defining the various elements of thoughts and feelings as they relate to behaviors. Cognitive distortions were also explored. The patient was to identify a current situation that he feels is distressful or challenging. After about ten minutes, he gave up trying to isolate such an event. How can I find anything, my life is a mess-this is pretty big stuff. You sound angry. Well, what am I supposed to do? I don't have control over anything in here... I can't even cut my nails without supervision (sarcastically). A group dialogue ensued in which his peers asserted that they are homeless too and know what you are going through. Shahnaz listened intently to his peers, his anger dissipating into the depressed moodwith which he started the session. A: Engaged, attentive, blunted affect, short presentation of anger. P: Continue group participation * Mary Jauregui MD - 04/01/2011 1418 EST Inpatient Psychiatry Daily Progress Note 04/01/2011 Admit Date: 03/22/2011 Hospital day: LOS: 10 days Legal Status: Legal status: Voluntary Observation Level: Observation / visual check: Routine (Q hour day / elaina, Q 1/2 hour night) Locus/Risk of Harm: Current locus of harm: 3 Reason for Admission/Chief Complaint: Depression / Status Post Intentional Overdose Clinical Update/24-hour Events: Mr. Shahnaz Santiago is a 60-year-old male with a past Psychiatric history of Major Depression with onset following the of his in August of 2009, seen on his tenth day after admission followinga serious intentional overdose. The patient was recently discharged from the [facility] on 03/19/11 after a two week stay for depressive symptoms. The patient underwent his first ECT treatment last and while still with depressed mood, was found to be improved the following day. Due to legal parameters the patient was not able to attend ECT yesterday, however the Legal parameters have now been resolved and the patient is scheduled to attend ECT tomorrow. Overnight nursing reports the patient spent much time in his bed, maintained a full appetite, and was without acute events. The patient is seen today and is found resting comfortably in his room. The patient engages with the interview and states to be feeling low, noting that he has no energy and is useless to anyone.The patient is glad that Legal Parameters have been resolved such that he can go to ECT tomorrow. The patient is hopeful that he will be improved by ECT. The patient denies current suicidal ideation,and has no acute concerns. Current Facility-Administered Medications Medication Route Frequency ??? zolpidem (AMBIEN) tablet 10 mg Oral QHS ??? lorazepam (ATIVAN) tablet 1 mg Oral AT BEDTIME PRN ??? perphenazine (TRILAFON) tablet 8 mg Oral QHS ??? sodium chloride 0.9 % flush 3 mL Intravenous Q8H ??? influenza vaccine [id number] (PF) (FLUZONE) 45 mcg (15 mcg x 3)/0.5 mL IM injection-syringe 0.5 mL Intramuscular ONCE ??? nortriptyline (PAMELOR) capsule 100 mg Oral QHS ??? lorazepam (ATIVAN) tablet 1 mg Oral BID PRN ??? aspirin chewable tablet 81 mg Oral DAILY ??? clopidogrel (PLAVIX) tablet 75 mg Oral DAILY ??? glipiZIDE (GLUCOTROL) CR tablet 5 mg Oral DAILY ??? hydrochlorothiazide (HYDRODIURIL) tablet 12.5 mg Oral DAILY ??? lisinopril (PRINIVIL, ZESTRIL) tablet 10 mg Oral DAILY ??? metformin (GLUCOPHAGE) tablet 1,000 mg Oral BID ??? Fenofibrate Nanocrystallized (TRICOR) tablet 145 mg Oral DAILY ??? dextrose 50 % solution 12.5 g Intravenous PRN ??? glucagon (human recombinant) injection 1 mg Intramuscular PRN ??? insulin aspart (NOVOLOG FlexPen) injection Subcutaneous TID WC ??? nicotine inhaler (delivery device) Inhalation PRN ??? nicotine (NICOTROL) 10 mg inhaler 1 Inhaler Inhalation Q2H PRN ??? nadolol (CORGARD) tablet 20 mg Oral DAILY Review of Systems: Appetite was full, patient denies medication side effects. Mental Status Exam: Mr. Santiago is an overweight male initially resting in bed, but easily aroused. The patient appears his stated age. Behavior is cooperative and grossly appropriate. No dyskinesias. The patient makes intermittent eye contact. Speech is normal rate and volume. Mood is I'm down, affect is less restricted than previously, but still depressed. Thought process is linear, thought content focuses on perceived worthlessness for others and pending resumption of ECT. Insight is fair, judgementis poor, although the patient is compliant with medications. Physical Exam: Deferred Today BP 129/77 Pulse 84 Temp(Src) 36.8 ??C (98.2 ??F) (Tympanic) Resp 16 Ht 185.4 cm (72.99) Wt 99.973 kg (220 lb 6.4 oz) BMI 29.08 kg/m2 SpO2 100% Data Review: Labs: Recent Results (from the past 24 hour(s)) GLUCOSE, GLUCOMETER Collection Time 03/31/11 1712 Component Value Range Glucose, Fingerstick 109 (*) 70 - 100 (mg/dl) Rodent Control Worker ID [id number] GLUCOSE, GLUCOMETER Collection Time 03/31/11 2047 Component Value Range Glucose, Fingerstick 334 (*) 70 - 100 (mg/dl) Rodent Control Worker ID [id number] GLUCOSE, GLUCOMETER Collection Time 04/01/11 0800 Component Value Range Glucose, Fingerstick 146 (*) 70 - 100 (mg/dl) Rodent Control Worker ID [id number] GLUCOSE, GLUCOMETER Collection Time 04/01/11 1154 Component Value Range Glucose, Fingerstick 187 (*) 70 - 100 (mg/dl) Rodent Control Worker ID [id number] Other studies:N/A Trough Nortriptyline level is in progress. Assessment/Formulation: Mr. Shahnaz Santiago is a 60-year-old male with a past psychiatric history of major depression with onset following the of his in August of 2009, admitted after a serious intentional overdose. The patient was discharged from the [facility] on 03/19/11 after a two week stay for Depressive symptoms. The patient underwent his first course of ECT last and was found to be improved. The patient plans to resume ECT tomorrow. Depressed mood and thoughts of persist, butaffect is slightly improved from admission. Trough Nortriptyline level is still pending. Diagnosis: Terry I: Major Depression, single episode, with psychotic features. Terry II: Deferred Terry III: HTN, CAD s/p PCI with stent, type II DM, h/o nephrolithiasis, s/p cholecystectomy Plan: 1.) ECT to resume tomorrow, with patient to be back on a Thu, , Thu ECT schedule. 2.) Trough Nortriptyline level still pending. Will address when results are available. 3.) No changes in medications today 4.) Participation in groups again encouraged. Discharge Plan: Unclear at this time, pending clinical status. Arthur Davila MD 04/01/2011 14:18 Psychiatry Attending Attestation: I have personally seen and examined the patient today. Treatment plan reviewed with the team. I spent a total of 26 minutes with this patient in direct floor time and 15 minutes of that time was spent in counseling and coordination of care regarding status of symptoms, discouragement and pessimism about treatment. I agree with and have edited in italics the findings and plan of care as documentedin the resident's note. MARY JAUREGUI MD Pager [phone] Attending, Inpatient Psychiatry, [facility] * Pastora Humphreys - 03/31/2011 9520 EST Social Work Progress Note Intervention/Service: Coordination of care The patient's daughter received permission from the court for the patient to proceed with ECT treatment. Dr. Jauregui will fax the consent form to the court on the morning of 04/01 as per the spinner tender's request. The patient may receive ECT late in day on Sunday 04/01 but more likely on Thursday. The patient's daughter, Nkechi, was frustrated by miscommunication between the court, nursing and Dr. Jauregui regarding facilitating communication between Dr. Jauregui and the spinner tender. Spoke to Nkechi, the patient's daughter, and let her know that Dr. Jauregui was able to speak with the spinner tender before he left and that he was doing his best to get ECT scheduled for her father as soon as possible. * Dewayne De León - 03/31/2011 1234 EST Communication Skills S/O: The patient participated in a Communication Skills exercise in which lifestyle changes were explored via a questionnaire. He noted that some of what he termed his better qualities also broughtcaveats. For example, the patient acknowledged that he doesn't like to offend anyone and has the ability to entertain himself, but also felt such qualities to be in conflict with his need to bemore assertive and his need to meet and create friends with other people. How would you go about that? I would have to try to change old thought patterns and stop isolating so much. Shahnaz agreed that learning more about self-esteem and self-image would be helpful for him in addition to the meditations he has already learned. On the issue of housing, he voiced his concern that moving in with his daughter and her family was not going to work out... it's just not a good idea and they don't have the money or resources. The patient offered comments to his peers and received the same. A: Good participation, depressed mood, blunted affect, fair judgement. P: Continue participation in groups. * Mary Jauregui MD - 03/31/2011 0928 EST Inpatient Psychiatry Daily Progress Note 03/31/2011 Admit Date: 03/22/2011 Hospital day: LOS: 9 days Legal Status: Legal status: Voluntary Observation Level: Observation / visual check: Routine (Q hour day / elaina, Q 1/2 hour night) Locus/Risk of Harm: Current locus of harm: 3 Reason for Admission/Chief Complaint: Depression / Status Post Intentional Overdose Clinical Update/24-hour Events: Mr. Shahnaz Santiago is a 60-year-old male with a past Psychiatric history of Major Depression with onset following the of his in August of 2009, seen on his ninth day after admission followinga serious intentional overdose. The patient was recently discharged from the [facility] on 03/19/11 after a two week stay for depressive symptoms. The patient underwent his first ECT treatment last and while still with depressed mood, was found to be improved the following day. Due to legal parameters, the primary treatment team was informed on Thursday that the patient will not be able to undergo further ECT treatments until ECT-specific guardianship issues are resolved. Weekend Attending notes are remarkable for Depressed mood, psycho-motor retardation, and wishes,but no plan to attempt suicide here on the unit. Weekend nursing notes are remarkable for irritability, frustration, full diet but complaints about quality of food, restricted affect, but some socialization with peers. The patient received several PRN dosings of Lorazepam for anxiety about which hewas non-specific, and PRN dosings of Ambien to help facilitate sleep. Today the patient is seen immediately after participating in a group and states to be feeling worthless, noting frustration that he cannot engage fully in aspects of self care referring to Diabetesmanagement. The patient denies pain, but endorses anxiety about everything, and frustration with nursing checks. The patient remains hopeful to continue with ECT when the legal parameters are resolved. The patient is encouraged to continue to participate in groups. The patient denies noticing anyadverse effects to his medications. The patient states that he still wishes to improve and will remain compliant with treatment recommendations. No acute concerns. Current Facility-Administered Medications Medication Route Frequency ??? perphenazine (TRILAFON) tablet 8 mg Oral QHS ??? zolpidem (AMBIEN) tablet 10 mg Oral AT BEDTIME PRN ??? sodium chloride 0.9 % flush 3 mL Intravenous Q8H ??? influenza vaccine [id number] (PF) (FLUZONE) 45 mcg (15 mcg x 3)/0.5 mL IM injection-syringe 0.5 mL Intramuscular ONCE ??? nortriptyline (PAMELOR) capsule 100 mg Oral QHS ??? lorazepam (ATIVAN) tablet 1 mg Oral BID PRN ??? aspirin chewable tablet 81 mg Oral DAILY ??? clopidogrel (PLAVIX) tablet 75 mg Oral DAILY ??? glipiZIDE (GLUCOTROL) CR tablet 5 mg Oral DAILY ??? hydrochlorothiazide (HYDRODIURIL) tablet 12.5 mg Oral DAILY ??? lisinopril (PRINIVIL, ZESTRIL) tablet 10 mg Oral DAILY ??? metformin (GLUCOPHAGE) tablet 1,000 mg Oral BID ??? Fenofibrate Nanocrystallized (TRICOR) tablet 145 mg Oral DAILY ??? dextrose 50 % solution 12.5 g Intravenous PRN ??? glucagon (human recombinant) injection 1 mg Intramuscular PRN ??? insulin aspart (NOVOLOG FlexPen) injection Subcutaneous TID WC ??? nicotine inhaler (delivery device) Inhalation PRN ??? nicotine (NICOTROL) 10 mg inhaler 1 Inhaler Inhalation Q2H PRN ??? lorazepam (ATIVAN) tablet 1 mg Oral QHS ??? nadolol (CORGARD) tablet 20 mg Oral DAILY Review of Systems: Initial insomnia was present, requiring PRN Ambien with good effect, Appetite remained full. Mental Status Exam: Mr. Santiago is an overweight male sitting calmly in the common area after having completed an Activity Therapy session. The patient appears his stated age. Behavior is cooperative and grossly appropriate. No dyskinesias. The patient makes improved eye contact. Speech is normal rate. Improved volume. Mood is I'm worthless, affect is less restricted than previously, but still depressed.Thought process is linear, thought content focuses on perceived inability to talk care of self . Insight is fair, judgement is poor, although the patient is compliant with medications. Physical Exam: Deferred Today BP 132/75 Pulse 93 Temp(Src) 36.8 ??C (98.2 ??F) (Tympanic) Resp 16 Ht 185.4 cm (72.99) Wt 101.969 kg (224 lb 12.8 oz) BMI 29.67 kg/m2 SpO2 100% Data Review: Labs: Recent Results (from the past 24 hour(s)) GLUCOSE, GLUCOMETER Collection Time 03/30/11 1153 Component Value Range Glucose, Fingerstick 257 (*) 70 - 100 (mg/dl) Rodent Control Worker ID [id number] GLUCOSE, GLUCOMETER Collection Time 03/30/11 1654 Component Value Range Glucose, Fingerstick 171 (*) 70 - 100 (mg/dl) Rodent Control Worker ID [id number] GLUCOSE, GLUCOMETER Collection Time 03/30/11 2058 Component Value Range Glucose, Fingerstick 238 (*) 70 - 100 (mg/dl) Rodent Control Worker ID [id number] GLUCOSE, GLUCOMETER Collection Time 03/31/11 0839 Component Value Range Glucose, Fingerstick 128 (*) 70 - 100 (mg/dl) Rodent Control Worker ID [id number] Other studies:N/A Assessment/Formulation: Mr. Shahnaz Santiago is a 60-year-old male with a past psychiatric history of major depression with onset following the of his in August of 2009, admitted after a serious intentional overdose. This is the third lifetime hospitalization for Mr. Santiago, who was discharged from the [facility] on 03/19/11 after a two week stay for Depressive symptoms. The patient underwent his first course of ECT last and was found to be improved. Late in the afternoon, the Attending did speak with a Equipment Maintenance Superintendent whereby the Legal parameters appear to be resolved. The patient has been without acute events. Depressed mood and thoughts of persist, but affect is slightly improved from admission. The patient is less isolative. No medication changes planned for today. Plan to continue ECT, with next treatment Thursday. Attending Discussed with Hon. Dahlia Michel [facility] [phone] and he amended guardianship order to include ECT. Faxed to unit. ECT team notified. Will put pato on schedule for Thursday. Diagnosis: Terry I: Major Depression, single episode, with psychotic features. Terry II: Deferred Terry III: HTN, CAD s/p PCI with stent, type II DM, h/o nephrolithiasis, s/p cholecystectomy Plan: 1.) Patient to remain on Shep 3, on voluntary status. 2.) ZOILA remains III, Observations remain Routine. 3.) Nortriptyline now at 100 mg & has received seven doses. A trough Nortriptyline level will be drawn tonight before the evening dose of Nortriptyline. A Nursing Communication is in place to ensure laboratory draw takes place before evening dosing. 4.) Perphenazine now at 8 mg daily. No Change today. 5.) ECT will continue. Next treatment will take place Wednesday morning. 6.) The patient currently has Ativan scheduled at Q, and Ambien is available PRN. Today this willbe altered such that the scheduled Ativan dose at QHS is made PRN and Zolpidem is scheduled at QHS. 7.) Continue to gather collateral information. 8.) Participation in groups again encouraged. Discharge Plan: Unclear at this time. Pending Clinical Status. Arthur Davila MD 03/31/2011 9:29 Psychiatry Attending Attestation: I have personally seen and examined the patient today. Treatment plan reviewed with the team. I spent a total of36 minutes with this patient in direct floor time and 20 minutes of that time was spentin counseling and coordination of care regarding status of symptoms, med mgmt, status of guardianship and ECT, review treatment plan. I agree with and have edited in italics the findings and plan of care as documented in the resident's note. MARY JAUREGUI MD Pager [phone] Attending, Inpatient Psychiatry, [facility] * Karina Luu MD - 03/30/2011 1147 EST 03/30/2011 ATTENDING SURVEYING TECHNICIAN NOTE REASON FOR HOSPITALIZATION: Depression HOSPITAL DAY: LOS: 8 days INTERIM HISTORY: Events of past 24h reviewed with nursing staff. Less irritable in evenings. Socialwith some patients. I am told by staff that ECT is on hold until probate court proceedings take place. Continued depressed mood and helplessness. Marked psycho-motor retardation. Slept 7 hours. EXAM: In room, despondent. Empty stare. Depressed mood and congruent affect. Helplessness. Hopelessness. Psycho-motor retardation. wishes. No plan to attempt suicide here. No delusion. BP 128/82 Pulse 84 Temp(Src) 36.5 ??C (97.7 ??F) (Tympanic) Resp 16 Ht 185.4 cm (72.99) Wt 101.969 kg (224 lb 12.8 oz) BMI 29.67 kg/m2 SpO2 97% ASSESSMENT: Continued depressed state, severe PLAN: As per treatment team. KARINA LUU MD Attending Psychiatrist housing liaison Pager [phone] * Karina Luu MD - 03/29/2011 0816 EST 03/29/2011 ATTENDING SURVEYING TECHNICIAN NOTE REASON FOR HOSPITALIZATION: Depression HOSPITAL DAY: LOS: 7 days INTERIM HISTORY: Events of past 24h reviewed with nursing staff. ect starting Thursday.Continued depressed mood and helplessness. Ativan 1 mg 3 times last evening. Benefits from Ativan by being less irritable and irascible. Slept well. EXAM: In room, despondent. Depressed mood and congruent affect. Helplessness. Hopelessness. Psycho-motor retardation. wishes. No plan to attempt suicide here. No delusion. BP 138/71 Pulse 86 Temp(Src) 36.4 ??C (97.5 ??F) (Tympanic) Resp 16 Ht 185.4 cm (72.99) Wt 101.969 kg (224 lb 12.8 oz) BMI 29.67 kg/m2 SpO2 98% ASSESSMENT: Continued depressed state, severe PLAN: As per treatment team. KARINA LUU MD Attending Psychiatrist housing liaison Pager [phone] * Yenny Brumfield - 03/28/2011 1531 EST Grief Group: S/O: Initially when invited to group, pt declined but then after approx 10 min into the start of the group, he decided to attend. However he did not wish to take part in the directive ofdrawing about his grief and instead he sat on the couch and sat silently for approx 25 min observing when he decided to leave on his on accord. A: Pt minimally engaged and guarded. Affect was depressed. P: To continue to participate in groups. * Katarzyna Rincon FACILITY COORDINATOR - 03/28/2011 1141 EST Social Work Progress Note Intervention/Service: Since Mr. Santiago's hospitalization, there have been to lengthy communications with Mr. Santiago's daughter, Nkechi Weber - one a conference call to address her concerns and questions regarding treatment, and the second conference call to address more specifically concerns she wanted to address regarding treatment with ECT. On both occasions Nkechi seemed satisfied with the communication andpleased with the team's prompt response to her calls. Today, I called Nkechi to address her need to go to Probate court to have the temporary guardianship she was granted for her father, amended to reflect her consent for her father to be treated with ECT. She will do this as soon as possible and will let us know when it has been done. * Mary Jauregui MD - 03/28/2011 0929 EST Inpatient Psychiatry Daily Progress Note 03/28/2011 Admit Date: 03/22/2011 Hospital day: LOS: 6 days Legal Status: Legal status: Voluntary Observation Level: Observation / visual check: Q 15 minutes (frequent) Locus/Risk of Harm: Current locus of harm: 4 Reason for Admission/Chief Complaint: Depression / Status Post Intentional Overdose Clinical Update/24-hour Events: Mr. Shahnaz Santiago is a 60-year-old male with a past psychiatric history of major depression with onset following the of his in August of 2009, seen on his sixth day after admission followinga serious intentional overdose. The patient was recently discharged from the [facility] on 03/19/11 after a two week stay for depressive symptoms, which include isolation, hopelessness, helplessness, active suicidal ideation, anhedonia, irritability, social isolation, and perseverationaround themes of decay, disappointment, and loss. Yesterday the patient underwent his first treatment of ECT. Overnight nursing reports the patient did receive an Ativan on account of a headache which he felt was attributable to stress, and was generally calmer, did shower, ate well, and was without acute events. This morning the patient is seen and is found resting comfortably in bed. He is easily aroused, sits up in bed, states that he Feels better. The patient is states that his mood is more hopeful. He states that he slept well, and noticed that his appetite was improved. The patient denied suicidalideation. The patient plans to continue with ECT. No acute concerns. Current Facility-Administered Medications Medication Route Frequency ??? perphenazine (TRILAFON) tablet 8 mg Oral QHS ??? zolpidem (AMBIEN) tablet 10 mg Oral AT BEDTIME PRN ??? sodium chloride 0.9 % flush 3 mL Intravenous Q8H ??? influenza vaccine [id number] (PF) (FLUZONE) 45 mcg (15 mcg x 3)/0.5 mL IM injection-syringe 0.5 mL Intramuscular ONCE ??? nortriptyline (PAMELOR) capsule 100 mg Oral QHS ??? lorazepam (ATIVAN) tablet 1 mg Oral BID PRN ??? aspirin chewable tablet 81 mg Oral DAILY ??? clopidogrel (PLAVIX) tablet 75 mg Oral DAILY ??? glipiZIDE (GLUCOTROL) CR tablet 5 mg Oral DAILY ??? hydrochlorothiazide (HYDRODIURIL) tablet 12.5 mg Oral DAILY ??? lisinopril (PRINIVIL, ZESTRIL) tablet 10 mg Oral DAILY ??? metformin (GLUCOPHAGE) tablet 1,000 mg Oral BID ??? Fenofibrate Nanocrystallized (TRICOR) tablet 145 mg Oral DAILY ??? dextrose 50 % solution 12.5 g Intravenous PRN ??? glucagon (human recombinant) injection 1 mg Intramuscular PRN ??? insulin aspart (NOVOLOG FlexPen) injection Subcutaneous TID WC ??? nicotine inhaler (delivery device) Inhalation PRN ??? nicotine (NICOTROL) 10 mg inhaler 1 Inhaler Inhalation Q2H PRN ??? lorazepam (ATIVAN) tablet 1 mg Oral QHS ??? nadolol (CORGARD) tablet 20 mg Oral DAILY Review of Systems: The patient states he has had poor appetite, and denies adverse effects to his medications. Mental Status Exam: Mr. Santiago is an overweight male wearing casual clothing resting calmly in bed, easily aroused. The patient appears his stated age. Behavior is cooperative and grossly appropriate. No dyskinesias. The patient makes improved eye contact. Speech is normal rate. Improved volume. Mood is Improved, more Hopeful, affect is less restricted. Thought process is linear, thought content focuseson inadequate quantities of food. Insight is fair, judgement is poor, although the patient is compliant with medications. Physical Exam: Deferred Today BP 106/64 Pulse 90 Temp(Src) 36.4 ??C (97.5 ??F) (Tympanic) Resp 16 Ht 185.4 cm (72.99) Wt 101.969 kg (224 lb 12.8 oz) BMI 29.67 kg/m2 SpO2 98% Data Review: Labs: Recent Results (from the past 24 hour(s)) GLUCOSE, GLUCOMETER Collection Time 03/27/11 1152 Component Value Range Glucose, Fingerstick 227 (*) 70 - 100 (mg/dl) Rodent Control Worker ID [id number] GLUCOSE, GLUCOMETER Collection Time 03/27/11 1446 Component Value Range Glucose, Fingerstick 224 (*) 70 - 100 (mg/dl) Rodent Control Worker ID [id number] GLUCOSE, GLUCOMETER Collection Time 03/27/11 1711 Component Value Range Glucose, Fingerstick 200 (*) 70 - 100 (mg/dl) Rodent Control Worker ID [id number] GLUCOSE, GLUCOMETER Collection Time 03/27/11 2110 Component Value Range Glucose, Fingerstick 175 (*) 70 - 100 (mg/dl) Rodent Control Worker ID [id number] GLUCOSE, GLUCOMETER Collection Time 03/28/11 0815 Component Value Range Glucose, Fingerstick 119 (*) 70 - 100 (mg/dl) Rodent Control Worker ID [id number] Other studies:N/A Assessment/Formulation: Mr. Shahnaz Santiago is a 60-year-old male with a past psychiatric history of major depression with onset following the of his in August of 2009, admitted after a serious intentional overdose. This is the third lifetime hospitalization for Mr. Santiago, who was discharged from the [facility] on 03/19/11 after a two week stay for Depressive symptoms. Today the patient is seen after his first ECT. The patient's mood is improved, noting that he is more hopeful than previously. The patient endorses good sleep and full appetite. No medication changes today. Plan to continue ECT. Unfortunately, there is a legal question about approval for ECT. See Ale note regarding gisell's visit to court. ECT postponed Mon. Diagnosis: Terry I: Major Depression, single episode, with psychotic features. Terry II: Deferred Terry III: HTN, CAD s/p PCI with stent, type II DM, h/o nephrolithiasis, s/p cholecystectomy Plan: 1.) Patient to remain on Shep 3, on voluntary status. 2.) ZOILA will be decreased to III, Observations decreased to Routine. 3.) Nortriptyline now at 100 mg. 4.) Perphenazine now at 8 mg daily. 5.) ECT to continue, next treatment is scheduled for next Thursday. Orders are in place. See above 6.) Attending to consider 30 minute passes from the Unit with his Daughter over the weekend. 7.) Continue to gather collateral information. 8.) Participation in groups again encouraged. Discharge Plan: Unclear at this time; pending clinical status Arthur Davila MD 03/28/2011 9:30 Psychiatry Attending Attestation: I have personally seen and examined the patient today. Treatment plan reviewed with the team. I spent a total of30 minutes with this patient in direct floor time and 20 minutes of that time was spentin counseling and coordination of care regarding status of symptoms, guardianship issues, ongoing treatment palnning. I agree with and have edited in italics the findings and plan of care as documented in the resident's note. MARY JAUREGUI MD Pager [phone] Attending, Inpatient Psychiatry, [facility] * Yenny Brumfield - 03/27/2011 1942 EST Games Group: S/O: Pt joined in game of [employer]. He had not played before, although he commented a couple of times that his had and he was able to catch on quickly. Pt social with peers and staff and joined in conversation about the TV show The X Factor. A: Pt engaged with pleasant affect and improved mood from earlier on in the day. P: To continue to participate in groups. * Mary Jauregui MD - 03/27/2011 1201 EST Inpatient Psychiatry Daily Progress Note 03/27/2011 Admit Date: 03/22/2011 Hospital day: LOS: 5 days Legal Status: Legal status: Voluntary Observation Level: Observation / visual check: Q 15 minutes (frequent) Locus/Risk of Harm: Current locus of harm: 4 Reason for Admission/Chief Complaint: Depression / Status Post Intentional Overdose Clinical Update/24-hour Events: Mr. Shahnaz Santiago is a 60-year-old male with a past psychiatric history of major depression with onset following the of his in August of 2009, seen on his fifth day after admission followinga serious intentional overdose. The patient was recently discharged from the [facility] on 03/19/11 after a two week stay for depressive symptoms, which include isolation, hopelessness, helplessness, active suicidal ideation, anhedonia, irritability, social isolation, and perseverationaround themes of decay, disappointment, and loss. Yesterday ECT consultation was obtained and following patient education, and Anesthesia evaluation, the patient did undergo his first ECT treatment this morning. A Folstein MMSE was performed yesterday which resulted in a good score. Prior to ECT treatment today, his daughter contacted the ECT team with concerns, but in consultation with the ECT Attending and the patient, ECT was performed as scheduled without acute event. Overnight nursing reports the patient had labile mood, denied suicidal ideation, and remained without acute events. Today the patient is seen after ECT has been performed and is found to be resting in his room. The patient is easily aroused and when asked how he is feeling, responds I can't believe this is real.The patient states that he feels unreal, but acknowledges that he does want to improve. The patient displayed a generally defeatist outlook, but acknowledges some hope that the ECT will work. The patient is counseled about his medications and agrees to an increase in the dosage of his perphenazine. The patient denies noticing any side effects to his medications or the ECT. The patient denies suicidal ideation at this point. No acute concerns. Past Family/Social History Update: A conference phone call occurred today inclusive of the the Patient's daughter, the Resident Physician, and Social Work, whereby ECT was discused in some detail and family education ensued. The patient's daughter expressed understanding about the procedure, and does wish for the patient to continuewith scheduled ECT treatment regimen at this time. Current Facility-Administered Medications Medication Route Frequency ??? naloxone (NARCAN) injection 0.2 mg Intravenous PRN ??? atropine 0.1 mg/mL 10 mL syringe 0.5 mg Intravenous PRN ??? ondansetron (PF) (ZOFRAN) injection 2 mg Intravenous PRN ??? acetaminophen (TYLENOL) tablet 325 mg Oral PRN ??? midazolam (VERSED) injection 0.5-2 mg Intravenous Q5 MINUTES PRN ??? sodium chloride 0.9 % flush 3 mL Intravenous Q8H ??? influenza vaccine [id number] (PF) (FLUZONE) 45 mcg (15 mcg x 3)/0.5 mL IM injection-syringe 0.5 mL Intramuscular ONCE ??? nortriptyline (PAMELOR) capsule 100 mg Oral QHS ??? lorazepam (ATIVAN) tablet 1 mg Oral BID PRN ??? aspirin chewable tablet 81 mg Oral DAILY ??? clopidogrel (PLAVIX) tablet 75 mg Oral DAILY ??? glipiZIDE (GLUCOTROL) CR tablet 5 mg Oral DAILY ??? hydrochlorothiazide (HYDRODIURIL) tablet 12.5 mg Oral DAILY ??? lisinopril (PRINIVIL, ZESTRIL) tablet 10 mg Oral DAILY ??? metformin (GLUCOPHAGE) tablet 1,000 mg Oral BID ??? Fenofibrate Nanocrystallized (TRICOR) tablet 145 mg Oral DAILY ??? dextrose 50 % solution 12.5 g Intravenous PRN ??? glucagon (human recombinant) injection 1 mg Intramuscular PRN ??? insulin aspart (NOVOLOG FlexPen) injection Subcutaneous TID WC ??? nicotine inhaler (delivery device) Inhalation PRN ??? nicotine (NICOTROL) 10 mg inhaler 1 Inhaler Inhalation Q2H PRN ??? perphenazine (TRILAFON) tablet 4 mg Oral QHS ??? lorazepam (ATIVAN) tablet 1 mg Oral QHS ??? nadolol (CORGARD) tablet 20 mg Oral DAILY Review of Systems: The patient states he has had poor appetite, and denies adverse effects to his medications. Mental Status Exam: Mr. Santiago is an overweight male wearing casual clothing resting calmly in bed, easily aroused. The patient appears his stated age. Behavior is cooperative and grossly appropriate. No dyskinesias. The patient makes slightly improved eye contact. Speech is normal rate and volume. Mood is None of this is real, affect is slightly restricted. Thought process is linear, thought content focuses on lack of quality of life. Insight is fair, judgement is poor, although the patient is compliant with medications. Physical Exam: Deferred Today BP 123/74 Pulse 90 Temp(Src) 36.6 ??C (97.9 ??F) (Tympanic) Resp 14 Ht 185.4 cm (72.99) Wt 101.969 kg (224 lb 12.8 oz) BMI 29.67 kg/m2 SpO2 99% Data Review: Labs: Recent Results (from the past 24 hour(s)) GLUCOSE, GLUCOMETER Collection Time 03/26/11 1217 Component Value Range Glucose, Fingerstick 186 (*) 70 - 100 (mg/dl) Rodent Control Worker ID [id number] GLUCOSE, GLUCOMETER Collection Time 03/26/11 1717 Component Value Range Glucose, Fingerstick 160 (*) 70 - 100 (mg/dl) Rodent Control Worker ID [id number] GLUCOSE, GLUCOMETER Collection Time 03/26/11 2101 Component Value Range Glucose, Fingerstick 259 (*) 70 - 100 (mg/dl) Rodent Control Worker ID [id number] GLUCOSE, GLUCOMETER Collection Time 03/27/11 0141 Component Value Range Glucose, Fingerstick 194 (*) 70 - 100 (mg/dl) Rodent Control Worker ID [id number] GLUCOSE, GLUCOMETER Collection Time 03/27/11 0804 Component Value Range Glucose, Fingerstick 162 (*) 70 - 100 (mg/dl) Rodent Control Worker ID [id number] GLUCOSE, GLUCOMETER Collection Time 03/27/11 1152 Component Value Range Glucose, Fingerstick 227 (*) 70 - 100 (mg/dl) Rodent Control Worker ID [id number] Other studies:N/A Assessment/Formulation: Mr. Shahnaz Santiago is a 60-year-old male with a past psychiatric history of major depression with onset following the of his in August of 2009, admitted after a serious intentional overdose. This is the third lifetime hospitalization for Mr. Santiago, who was discharged from the [facility] on 03/19/11 after a two week stay for Depressive symptoms. Today the patient had his first ECT, which was performed without incident. The patient feels much the same as previously, but does endorse more hope for recovery than was present at previous interview. Patient's mood remains severely depressed. Patient does plan to continue ECT and agrees to an increase in his dosage of Perphenazine. Diagnosis: Terry I: Major Depression, single episode, with psychotic features Terry II: deferred Terry III: HTN, CAD s/p PCI with stent, type II DM, h/o nephrolithiasis, s/p cholecystectomy Plan: 1.) Patient to remain on Shep 3, on voluntary status. 2.) ZOILA IV, Frequent Observations remain, to be reassessed tomorrow. 3.) Nortriptyline now at 100 mg. 4.) Today the dosage of Perphenazine will be increased to 8 mg daily. 5.) ECT to continue, next treatment is scheduled for next Thursday. Orders are in place. 6.) Continue to gather collateral information. 7.) Participation in groups again encouraged. Discharge Plan: Unclear at this time; pending clinical status Arthur Davila MD 03/27/2011 12:02 Psychiatry Attending Attestation: I have personally seen and examined the patient today. Treatment plan reviewed with the team. I spent a total of36 minutes with this patient in direct floor time and 20 minutes of that time was spentin counseling and coordination of care regarding status of symptoms, reassurance and eduction, brief psychotherapy addressing pessimism and hopelessness. I agree with and have edited in italics the findings and plan of care as documented in the resident's note. Some change today with slightly less pessimism, spark of hopefulness. This probably related to institution of an action plan, though he did tolerate the first session of ECT. MARY JAUREGUI MD Pager [phone] Attending, Inpatient Psychiatry, [facility] * Danyell Salmeron - 03/27/2011 1117 EST 1117--pt seen by Dr Ever Fofana, states he will write DC eval * Olegario (At), Adoria - 03/26/2011 1755 EST Games: S/O: Pt arrived late and chose not to participate in the game but sat on the couch as others took part. Pt interacted with other staff who entered to take his blood sugar. He expressed irritation with his presence on the unit, using expletives to convey his message. A: withdrawn, showing some inclination towards socialization, flat affect P: Pt continue to participate in groups. * Nixon Schwartz LICSW - 03/26/2011 1524 EST [facility] Electroconvulsive Therapy Service Cognition & Depression Rating Date of Service: 03/26/2011 Time: 1400 Duration of Service: 40 minutes Folstein MMSE Total Score (Max. Total=27): 26 Level of Consciousness: Alert. Reasoning: intact abstraction Judgement: poor Fund of Knowledge: bilingual inside sales representative Diagnosis code: 296.34 Total MADRS Score (Very Severe 44; Severe 31; Moderate 25; Mild 15; Recovered 7): 43 Subjective Rating of Cognitive Dysfunction Anterograde Amnesia: Severe Retrograde Amnesia: Severe Assessment: MADRS/MMSE conducted alone with patient after a joint meeting with patient and his daughter. Cognitive deficit in orientation to day of week - mild. Mood: low, despondent. Affect: blunted, irritable. SI = I'm already . I took an overdose. Joint meeting with patient and daughter: This was completed after patient and daughter viewed the ECT Informed Consent video. Answered questions both had about ECT. Daughter expressed to her father that she feels ECT is the treatment of choice for him. Patient ruminated about a litany of issues, many unrelated to ECT. His thinking is nihilistic and he often repeated that he is already and sees no hope for the future. What kind of life have I had? What is there to return to? ECT isn't going to do anything. This was after discussion of what ECT could potentially do to address his depression and clear his thinking. Patient exhibited considerable self-reproach and self-depreciation. Patient and daughter acknowledged that patient had met earlier today with Dr. Walter and had reviewed the risks/benefits of ECT. Patient finally signed the ECT Informed Consent package along with his daughter. He will start the Index course with Right/Unilateral electrode placement on 03/27/2011. Plan: Continue to monitor cognition and level of depression and Discuss findings with psychiatrist administering ECT: Drs. Stanford & Jese. JOE PIERRE 03/26/2011 15:25 * Meghan Valladares RN - 03/26/2011 1519 EST Attended late morning grief group, out in the milieu in the afternoon, appeared irritable and negative. Ct's lunch FS was 186 and he received 3 units aspart. Daughter in to visit and they both watched ECT video then met with Vineet Stahl. Denied additional needs. * Stacy Holder - 03/26/2011 1251 EST Grief and Anger Group: S/O: Pt quiet for the first 20 mins of the group when 3 of his peers (who are getting discharged today) said their goodbyes to the group. When a question was directed to the pt about his losses he participated in the discussion and repeated that this isn't real. Pt focused on his clothes and stated that he wasn't cold wearing the clothes. When asked what that meant he could not add any meaning to his statement. Pt also stated that nobody talks to each other when they are eating. When a peersuggested he start the conversation by asking a peer a question he stated, and then what would I say. A: Some participation, sense of unreality, frustrated, angry, rejecting help. P: To continue to participate in group and increase coping skills. * Mary Jauregui MD - 03/26/2011 1015 EST Inpatient Psychiatry Daily Progress Note 03/26/2011 Admit Date: 03/22/2011 Hospital day: LOS: 4 days Legal Status: Legal status: Voluntary Observation Level: Observation / visual check: Q 15 minutes (frequent) Locus/Risk of Harm: Current locus of harm: 4 Reason for Admission/Chief Complaint: Depression / Status Post Intentional Overdose Clinical Update/24-hour Events: Mr. Shahnaz Santiago is a 60-year-old male with a past psychiatric history of major depression with onset following the of his in August of 2009, admitted involuntarily after ingesting #27 10 mg Zolpidem tablets in attempt to suicide. The patient was recently discharged from the [facility] on 03/19/11 after a two week stay for similar symptoms, which include isolation, hopelessness, helplessness, active suicidal ideation, anhedonia, irritability, social isolation, and perseveration around themes of decay, disappointment, and loss. His dosage of Nortriptyline has been increased too 100 mg daily and ECT consultation has been placed. Overnight nursing reports that the patient was argumentative, irritable, and refused to watch the entirety of the ECT video. The patient slept well and was compliant with medications. Appetite was full, the patient attended one group, and was observed to be sleeping well. The patient did participate in ECT consultation this morning wherebythe ECT procedure was reviewed and the ECT Attending did recommend ECT. Later in the day the patient informs that he wishes to undergo ECT. Today the patient is seen in conjunction with his daughter who has come to visit him. He reports feeling like a emptiness; nothing. He again embraces a defeatist outlook, and again speaks at some length about trivial things (pants that don't fit appropriately, a small bruise on his arm). The patient states that he feels essentially unchanged since yesterday, but again exhibits a desire to improve. The patient acknowledges that he will watch the ECT video with his daughter and later in the afternoon informs the treatment team that he does wish to undergo ECT. The patient denies suicidal ideation. No acute concerns. Past Family/Social History Update: A family meeting was held whereby the patient's condition and current status was review with the patient's daughter. Current Facility-Administered Medications Medication Route Frequency ??? influenza vaccine [id number] (PF) (FLUZONE) 45 mcg (15 mcg x 3)/0.5 mL IM injection-syringe 0.5 mL Intramuscular ONCE ??? nortriptyline (PAMELOR) capsule 100 mg Oral QHS ??? lorazepam (ATIVAN) tablet 1 mg Oral BID PRN ??? aspirin chewable tablet 81 mg Oral DAILY ??? clopidogrel (PLAVIX) tablet 75 mg Oral DAILY ??? glipiZIDE (GLUCOTROL) CR tablet 5 mg Oral DAILY ??? hydrochlorothiazide (HYDRODIURIL) tablet 12.5 mg Oral DAILY ??? lisinopril (PRINIVIL, ZESTRIL) tablet 10 mg Oral DAILY ??? metformin (GLUCOPHAGE) tablet 1,000 mg Oral BID ??? Fenofibrate Nanocrystallized (TRICOR) tablet 145 mg Oral DAILY ??? dextrose 50 % solution 12.5 g Intravenous PRN ??? glucagon (human recombinant) injection 1 mg Intramuscular PRN ??? insulin aspart (NOVOLOG FlexPen) injection Subcutaneous TID WC ??? nicotine inhaler (delivery device) Inhalation PRN ??? nicotine (NICOTROL) 10 mg inhaler 1 Inhaler Inhalation Q2H PRN ??? perphenazine (TRILAFON) tablet 4 mg Oral QHS ??? lorazepam (ATIVAN) tablet 1 mg Oral QHS ??? nadolol (CORGARD) tablet 20 mg Oral DAILY Review of Systems: The patient states he has had poor appetite (Nurses report he ate well), states he slept ok, and denies adverse effects to his medications. Mental Status Exam: Mr. Santiago is an overweight male wearing new jeans and a freshly cleaned shirt who is ofmoderate hygeine with jorgensen hair combed backwards. The patient appears his stated age. Behavior is cooperative and grossly appropriate. No dyskinesias. Eye contact is slightly improved today. Speech is normal rate and volume. Mood is I'm empty, affect is slightly restricted. Thought process is linear, thought content focuses on somatic problems, life decay, and reported distress caused by penilecare. Recent and remote memory appear to be intact. Insight is fair, judgement is poor, although the patient is compliant with medications. Physical Exam: Deferred Today BP 122/58 Pulse 78 Temp(Src) 36.7 ??C (98.1 ??F) (Tympanic) Resp 18 Ht 185.4 cm (72.99) Wt 101.969 kg (224 lb 12.8 oz) BMI 29.67 kg/m2 SpO2 98% Data Review: Labs: Recent Results (from the past 24 hour(s)) GLUCOSE, GLUCOMETER Collection Time 03/25/11 1157 Component Value Range Glucose, Fingerstick 240 (*) 70 - 100 (mg/dl) Rodent Control Worker ID [id number] GLUCOSE, GLUCOMETER Collection Time 03/25/11 1653 Component Value Range Glucose, Fingerstick 171 (*) 70 - 100 (mg/dl) Rodent Control Worker ID [id number] GLUCOSE, GLUCOMETER Collection Time 03/25/11 2052 Component Value Range Glucose, Fingerstick 299 (*) 70 - 100 (mg/dl) Rodent Control Worker ID [id number] GLUCOSE, GLUCOMETER Collection Time 03/26/11 0810 Component Value Range Glucose, Fingerstick 121 (*) 70 - 100 (mg/dl) Rodent Control Worker ID [id number] Other studies:N/A Assessment/Formulation: Mr. Shahnaz Santiago is a 60-year-old male with a past psychiatric history of major depression with onset following the of his in August of 2009, admitted involuntarily after ingesting #27 10 mg Zolpidem tablets in attempt to suicide. This is the third lifetime hospitalization for Mr. Santiago, who was discharged from the [facility] on 03/19/11 after a two week stay for Depressive symptoms. He again endorses Depressed mood today, but denies suicidal ideation. The patient was seen by the ECT consultation service whereby ECT was recommended. The Nortriptyline has been increased to 100 mg daily. The patient's focus on trivial matters, his seeming inability to answer questions clearly, and his focus on life decay are very likely manifestations of severe Depression. The patient was visited by his daughter today with whom he did watch the ECT video. The patient informs the treatment team later in the afternoon that he does wish to undergo the ECT treatment. No medication changes today. Diagnosis: Terry I: Major Depression, single episode, with psychotic features Terry II: deferred Terry III: HTN, CAD s/p PCI with stent, type II DM, h/o nephrolithiasis, s/p cholecystectomy Plan: 1.) Patient to remain on Shep 3, on voluntary status. 2.) ZOILA IV, Frequent Observations unchanged today. Will reassess this tomorrow. Reviewed with nursing that he will be accompanied to ECT tomorrow. 3.) Maintain current medications, Nortriptyline now at 100 mg. 4.) ECT recommended. After period of consideration patient agrees later in the afternoon to proceedwith ECT. Scheduled for tomorrow. Will need to be evaluated by anesthesia prior to procedure. Resident did contact anesthesia service to alert to short timing. 5.) NPO after midnight, No Benzodiazepines after 8 pm. 6.) Continue to gather collateral information. 7.) Participation in groups again encouraged. Discharge Plan: Unclear at this time; pending clinical status Arthur Davila MD 03/26/2011 10:15 Psychiatry Attending Attestation: I have personally seen and examined the patient today. Treatment plan reviewed with the team. I spent a total of 30 minutes with this patient in direct floor time and 18 minutes of that time was spent in counseling and coordination of care regarding status of symptoms, ECT/other treatment options. I agree with and have edited in italics the findings and plan of care as documented in the resident's note. MARY JAUREGUI MD Pager [phone] Attending, Inpatient Psychiatry, [facility] * Dewayne De León - 03/25/2011 1702 EST WRAP Group: S/O: After introductions the patient appeared mentally sluggish, but stayed with the group process.When asked to read aloud or share his thoughts on the booklet content, he did so freely. When askedto define the stressors and/or triggers that are likely to eventuate in fatigue, sadness or distressing thoughts, the patient had difficulty verbalizing his thoughts: I just don't know, this is all so new to me... I just took the Ambien. Could it have been worse? Yes, I have two pistols Jaskaran could have shot myself... I could have driven my car into a tree on the way to the hospital, but I didn't. The patient was able to identify with feeling depressed and self-harm thoughts when such topics emerged in the group dialogue. A: Pt engaged, blunted affect, attentive. P: Continue participation in groups. * Mary Jauregui MD - 03/25/2011 6199 EST Inpatient Psychiatry Daily Progress Note 03/25/2011 Admit Date: 03/22/2011 Hospital day: LOS: 3 days Legal Status: Legal status: Voluntary Observation Level: Observation / visual check: Q 15 minutes (frequent) Locus/Risk of Harm: Current locus of harm: 4 Reason for Admission/Chief Complaint: Depression / Status Post Intentional Overdose Clinical Update/24-hour Events: Mr. Shahnaz Santiago is a 60-year-old male with a past psychiatric history of major depression with onset following the of his in August of 2009, admitted involuntarily after ingesting #27 10 mg Zolpidem tablets in attempt to suicide. The patient was recently discharged from the [facility] on 03/19/11 after a two week stay for similar symptoms, which include isolation, hopelessness, helplessness, active suicidal ideation, anhedonia, irritability, social isolation, and perseveration around themes of decay, disappointment, and loss. Yesterday the patient's dosage of Nortriptyline was increased to 100 mg daily and an ECT consult was placed. Overnight nursing reports good sleep, full appetite, compliance with medication, and no acute events. The patient was converted to Voluntary status yesterday. Today the patient is seen and is found to be resting in his room. The patient is seen in conjunction with the Attending and states to be feeling Like a void, embracing a generally defeatist outlookon his life, and stating I'm just not existing. The patient speaks several times at length about very trivial matters (clothing, a small bruise), and then after some hesitation remarks that he is distressed by what he perceives to be his undersized genitalia. The patient states that he has not watched the ECT video despite having been offered. The patient remains cautiously interested in ECT. No acute concerns. Past Family/Social History Update: Extensive collateral obtained by Social Work; refer to noted dated 03/25. Current Facility-Administered Medications Medication Route Frequency ??? influenza vaccine [id number] (PF) (FLUZONE) 45 mcg (15 mcg x 3)/0.5 mL IM injection-syringe 0.5 mL Intramuscular ONCE ??? nortriptyline (PAMELOR) capsule 100 mg Oral QHS ??? lorazepam (ATIVAN) tablet 1 mg Oral BID PRN ??? aspirin chewable tablet 81 mg Oral DAILY ??? clopidogrel (PLAVIX) tablet 75 mg Oral DAILY ??? glipiZIDE (GLUCOTROL) CR tablet 5 mg Oral DAILY ??? hydrochlorothiazide (HYDRODIURIL) tablet 12.5 mg Oral DAILY ??? lisinopril (PRINIVIL, ZESTRIL) tablet 10 mg Oral DAILY ??? metformin (GLUCOPHAGE) tablet 1,000 mg Oral BID ??? Fenofibrate Nanocrystallized (TRICOR) tablet 145 mg Oral DAILY ??? dextrose 50 % solution 12.5 g Intravenous PRN ??? glucagon (human recombinant) injection 1 mg Intramuscular PRN ??? insulin aspart (NOVOLOG FlexPen) injection Subcutaneous TID WC ??? nicotine inhaler (delivery device) Inhalation PRN ??? nicotine (NICOTROL) 10 mg inhaler 1 Inhaler Inhalation Q2H PRN ??? perphenazine (TRILAFON) tablet 4 mg Oral QHS ??? lorazepam (ATIVAN) tablet 1 mg Oral QHS ??? nadolol (CORGARD) tablet 20 mg Oral DAILY Review of Systems: The patient states he has had poor appetite, and denies adverse effects to his medications. Mental Status Exam: Mr. Santiago is an overweight male wearing casual pants and shirt who is of moderate hygeine with jorgensen hair combed backwards. The patient appears his stated age. Behavior is cooperative and grossly appropriate. No dyskinesias. The patient makes intermittent eye contact. Speech is normal rate and volume. Mood is I'm just not existing, affect is slightly restricted. Thought process is linear, thought content focuses on somatic problems, life decay, and reported distress caused by penile care. Insight is fair, judgement is poor, although the patient is compliant with medications. Physical Exam: Deferred Today BP 115/82 Pulse 84 Temp(Src) 36.3 ??C (97.3 ??F) (Tympanic) Resp 17 Ht 185.4 cm (72.99) Wt 101.969 kg (224 lb 12.8 oz) BMI 29.67 kg/m2 SpO2 99% Data Review: Labs: Recent Results (from the past 24 hour(s)) GLUCOSE, GLUCOMETER Collection Time 03/24/11 2058 Component Value Range Glucose, Fingerstick 237 (*) 70 - 100 (mg/dl) Rodent Control Worker ID [id number] GLUCOSE, GLUCOMETER Collection Time 03/25/11 0924 Component Value Range Glucose, Fingerstick 153 (*) 70 - 100 (mg/dl) Rodent Control Worker ID [id number] GLUCOSE, GLUCOMETER Collection Time 03/25/11 1157 Component Value Range Glucose, Fingerstick 240 (*) 70 - 100 (mg/dl) Rodent Control Worker ID [id number] GLUCOSE, GLUCOMETER Collection Time 03/25/11 1653 Component Value Range Glucose, Fingerstick 171 (*) 70 - 100 (mg/dl) Rodent Control Worker ID [id number] Other studies:N/A Assessment/Formulation: Mr. Shahnaz Santiago is a 60-year-old male with a past psychiatric history of major depression with onset following the of his in August of 2009, admitted involuntarily after ingesting #27 10 mg Zolpidem tablets in attempt to suicide. This is the third lifetime hospitalization for Mr. Santiago, who was discharged from the [facility] on 03/19/11 after a two week stay for Depressive symptoms. He endorses Depressed mood today, but denies suicidal ideation. He is now of voluntary status. ECT consultation is placed. The Nortriptyline has been increased to 100 mg daily. The patient's focus on trivial matters, his seeming inability to answer questions clearly, and his focus on his genitalia size are very likely manifestations of severe Depression. Patient is very likely appropriate for ECT. Diagnosis: Terry I: Major Depression, single episode, with psychotic features Terry II: deferred Terry III: HTN, CAD s/p PCI with stent, type II DM, h/o nephrolithiasis, s/p cholecystectomy Plan: 1.) Patient to remain on Shep 3, on voluntary status. 2.) ZOILA IV, Frequent Observations, to be reassessed tomorrow. 3.) Maintain current medications, Nortriptyline now at 100 mg. 4.) ECT consultation placed, nursing communication that patient may watch ECT video placed. 5.) Continue to gather collateral information. 6.) Participation in groups again encouraged. Discharge Plan: Unclear at this time; pending clinical status Arthur Davila MD 03/25/2011 17:05 Psychiatry Attending Attestation: I have personally seen and examined the patient today. Treatment plan reviewed with the team. I spent a total of 45 minutes with this patient in direct floor time and 30 minutes of that time was spent in counseling and coordination of care regarding status of symptoms, further review of history, treatment options, overall treatment planning. I agree with and have edited in italics the findings and plan of care as documented in the resident's note. MARY JAUREGUI MD Pager [phone] Attending, Inpatient Psychiatry, [facility] * Katarzyna Rincon, [facility] - 03/25/2011 4777 EST Psychosocial Assessment Presenting Problems: 60 year old man who has a history of depression. He was admitted to psychiatry following an overdose on medication in a suicide attempt. His hospitalization began as involuntary but he is now here on a voluntary basis. When meeting with Mr. Santiago he said, I want help. I'm not in real good shape right now. I'd like to see the bright side and move on. Mr. Santiago said that he was in an unhappy marriage, and that he had made decisions in his life that have left him more vulnerable in his later years - financially and emotionally. He has been hospitalized twice before this admission since August of 2010. He has previous suicide attempts. This time he said, I took27 Ambien in frustration - they were there. I don't think I wanted to kill myself. I think it was acall for help. He said that he has been depressed for a long time and that it has effected my ability to enjoy things, my family and hobbies. He went on to say, I don't want to be a vegetable. Ifeel I'm slipping into it. Mr. Santiago said several times that he'd been unhappy for a long time and that he wants to be in [place] to be close to his daughter and grandchildren. He thought about the harm a suicide would do to his family and he said, I don't want to go out like that. Current Living Situation/Housing: Has an apartment in [place], [place]. Family/Support System and Contact Telephone Numbers: Daughter and grandchildren in the area. Daughter -Nkechi Weber [phone]. Family Constellation/Pertinent Family History: Raised in [place]. Father was an alcoholic. Moved in [place] in the 70s and then later moved to [place] with second who Shahnaz describes as sarcastic. Johanna in 2009 of cancer. Mr. Santiago has come to [place] from [place] to be closer to his daughter and her family. Other Social Supports: Very limited in this area. Education/Employment Financial: Technical training Substance Abuse and Treatment History: None currently - stopped many years ago. Mental Health Treatment History: Further assessment needed. Wants a referral to [facility]. Mental Health and Other Providers: Referral to [facility] [place] [facility] Legal Issues: None known Spiritual/Hoahaoism/Cultural Considerations: Not known - further assessment needed. Other Issues/Supports/Barriers to Adaptive Functioning: Mr. Santiago is a man who has worked most ofhis life, had the structure, purpose, and income of steady employment, has been and now finds himself in a new living environment, he is jobless and has a lot of time on his hands, he worriesthat he is not financially set up for the future, and he feels he has no real prospects for work atthis time. 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 His daughter worries that he is losing ground cognitively and questions whether or not he has dementia. He is describing a debilitating depression that has goneuntreated and he feels frustrated, hopeless and desperate for help. Insurance/Pharmacy Coverage: Medicare Assessment: depressed man who recently moved to [place] to be closer to daughter. Recently lost second to cancer, and resigned from his job in May. He has no supports beyond family in the area, no job, or social connections. He has become progressively more depressed with this being his third psychiatric hospitalization in the past few months. Plan: Continued assessment Conference call with daughter with planned meeting for Thursday - 03/26 at 12:30 Address supports, assist with discharge planning. * Jw Carrasquillo - 03/24/2011 2013 EST S/O:Pt attended Leisure group utilizing the Wii for recreation, relaxation and socialization. Pt appeared in positive mood, playing Wii for around 40 minutes, engaging in small talk with staff and peers. Pt had no apparent difficulties in focusing on task or interacting with peers or staff. Pt indicated he really enjoyed it and I guess you can teach an old dog new tricks. A:Positive, social, engaging and pleasant. P: Pt should be encouraged to attend groups. * Mary Jauregui MD - 03/24/2011 1907 EST Inpatient Psychiatry Daily Progress Note 03/24/2011 Admit Date: 03/22/2011 Hospital day: LOS: 2 days Legal Status: Legal status: Involuntary Observation Level: Observation / visual check: Q 15 minutes (frequent) Locus/Risk of Harm: Current locus of harm: 4 Reason for Admission/Chief Complaint: Depression / Status Post Intentional Overdose Clinical Update/24-hour Events: Mr. Shahnaz Santiago is a 60-year-old male with a past psychiatric history of major depression with onset following the of his in August of 2009, admitted involuntarily after ingesting #27 10 mg Zolpidem tablets in attempt to suicide. This is the third lifetime hospitalization for Mr. Santiago, who was discharged from the [facility] on 03/19/11 after a two week stay for similar symptoms, which include isolation, hopelessness, helplessness, active suicidal ideation, anhedonia, irritability, social isolation, and perseveration around themes of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 preoccupations, cognitive distortions, all or nothing thinking, impoverished and characterized by perseveration around the theme I just can't believe I'm here; can't believe I'm alive; feels like I am in hell, etc. Perceptual Disturbances: no hallucinations Impulses: Suicidal ideation; patient not responding to queries about plan or imminent intent, but endorses active suicidal ideation Insight: poor Judgment: poor Language: normal Fund of Knowledge: appropriate for educational level Short Term Memory: intact Alf Memory: intact Capacity for Abstraction: intact Assessment: DIAGNOSTIC ASSESSMENT Case Summary: This is a 60-year-old man with a recent history of severe depression, onset followinghis 's in 2009, as well as a more distant reported history of anxiety symptoms, who presents for involuntary admission following suicide attempt by zolpidem overdose. Current symptoms include hopelessness, helplessness, disrupted sleep, ongoing suicidal ideation, irritability, and near-delusional perseveration surrounding themes of loss and destruction. Thought-blocking, poverty of content, and other disorganization of thought process are also features of his presentation. Multiaxial Diagnostic Impression (including Differential Diagnosis) Terry I: Major Depression, single episode, with psychotic features Terry II: deferred Terry III: HTN, CAD s/p PCI with stent, type II DM, h/o nephrolithiasis, s/p cholecystectomy Terry IV: , unemployed, recently relocated, lives alone Terry V: 21-30 behavior considerably influenced by delusions or hallucinations OR serious impairmentin judgment, communication OR inability to function in almost all areas SUICIDE RISK ASSESSMENT: Modifiable Risk Factors: Current suicidal ideation;Psychic distress/anxiety/pain;Impulsivity;Vulnerability to painful affective states;Hopelessness;Helplessness;Loss of pleasure/interest;Decreased self esteem;Despair Non-modifiable risk factors: Recent suicide attempt;Prior suicide attempt;Chronic or terminal illness;Older than 55 years old;, , single;Male;;Mood disorder Overall Acute Risk Rating: high Overall Chronic Risk Rating: high Interventions / Plan: IMMEDIATE PLAN OF TREATMENT: 1) Restart outpatient hypertension, hypercholesterolemia regimen. 2) Oral diabetic regimen restarted. SS insulin in place of non-formulary exenatide. (Patient's daughter may be able to bring in exenatide from home). Consistent carbohydrate diet ordered. 3) Nortriptyline restarted at significantly lower dose (25 mg), as it unclear at this time whether we will continue to pursue this part of the regimen. Rationale for its use may have been the indication for anxious depression. Discussion with Dr. Banegas of and review of records may shed light onthis. ? Utility of nortriptyline level given the fact that the patient is 2 days without meds. 4) Consideration should be given to referral for ECT. 5) Perphenazine also restarted at significantly lower dose (4 mg). Given the patient's problems with blood glucose control, selection of this agent over newer agents is reasonable. However, Mr. Santiago's daughter's report of his acute worsening since starting this regimen suggests that another regimen may be required. 6) We need to clarify the medication history, as Mr. Santiago is uncertain tonight which agents havebeen tried. 7) Given the history of CAD and the reported acuity of worsening of Mr. Santiago's symptoms, consideration should be given to CT vs MRI of the brain to rule-out infarct. 8) EKG is ordered but not yet performed. This will need to be reviewed and has been signed out to the night resident. 9) Physician's part of the involuntary paperwork was not sent along with the clinician's EE paperwork. [facility] should be contacted to obtain this. Acuity / Indications for admission: This patient requires active treatment in the Inpatient Psychiatric Unit because of the following: Threat to self requiring 24-hour professional observation. Mental disorder causing major disability in social, interpersonal, occupational, and/or educationalfunctioning that is leading to dangerous or life-threatening functioning and that can only be addressed in an acute inpatient setting. Mental disorder causing an inability to maintain adequate nutrition or self- care, and family/community support cannot provide reliable, essential care, so that the patient cannot function at a less intensive level of care during evaluation and treatment. PLAN TO RESTRICT ACCESS TO FIREARMS (outpatient setting): Access to firearms? no Jenae Metz MD 03/22/2011 19:10 PGY-4 Fellow in Child and Adolescent Psychiatry Attestation statement: I saw and examined the patient. I agree with the findings and plan of care documented in the resident's/fellow's note. documented in this encounter Procedure Notes * Community Development Officer, Scan - 05/13/2011 0839 ESTAssociated Order(s): ECG REPORT - SCANNED * Community Development Officer, Scan - 04/07/2011 0808 ESTAssociated Order(s): ECG REPORT - SCANNED * Community Development Officer, Scan - 03/26/2011 0711 ESTAssociated Order(s): ECG REPORT - SCANNED documented in this encounter Consult Notes * Benito Mejia RD - 04/04/2011 1446 ESTAssociated Order(s): CONSULT NUTRITION Nutrition consult for diet ed d/t pt.overeating and has diabetes Pt. Unwilling to speak with me today, is sleeping, in dark room. Left diabetes pack for his review Diet: CCD Labs: glu-130-200's 03/22 B12 = 381 Meds: glyburide, metformin, aspart with meals A: Un able to meet with pt today, will re try on Thursday. Pt has diabetes ed info in his room. Most recent B12 at the low end of normal, at risk for B12 deficiency d/t metformin use, suggest check methylmalonic acid to assess for B12 deficiency Suggest p.o. MVM to assure pt. Meets needs for vitamins. likely vitamin D deficient d/t age, seasonand current illness. Please check vitamin D level Rec: 1) will try to meet with pt again on Thursday 2) please check methylmalonic acid and vitamin D 3) p.o. Multivitamin and mineral daily Ongoing monitor and follow up BENITO MEJIA RD Pager [phone] * Juwan Walter MD - 03/26/2011 1144 EST PSYCHIATRIC CONSULT SERVICE DATE: 03/26/2011 IDENTIFYING DATA: A 60-year-old white male living in [place], [place] over the last year, moving from [place] to [place] to be near a daughter and grandchildren. He is since last August. He had worked in [employer] until last May. HISTORY OF PRESENT ILLNESS: The patient is admitted 03/22/11 in transition from the hospital in [facility] after an overdose of Ambien, 27 tablets. Please see admission note by Dr Jenae Metz. The patient, on interview, reviews that he has had some depression all his life, isolating, lackingassertion. After his in August, he acknowledged becoming more depressed. He had difficulty functioning and resigned his job last May. He then was hospitalized in June in [place] into a mental health unit. He was placed on Cymbalta and Remeron. He decided to move to [place] to be with hisdaughter. His daughter, however, moved from [place] to [facility] in the fall for a child togo to school and that was another loss. He describes that he was isolating, having a hard time functioning. He was next hospitalized in [facility] in February. He was there for approximately2 weeks, being placed on nortriptyline and perphenazine. After 2 weeks, he was discharged against medical advice, though apparently with daughter's intent to have him involved in a different treatment setting, perhaps in [facility] or [facility]. He describes, while staying at a hotel for a few days after discharge, feeling overwhelmed and taking a bottle of Ambien, 27 tablets. He describes feeling he could not live any further. He had thoughts of suicide in the past, but never acted on them. He was aware that his daughter would be coming at some point later in the morning to check on him. He describes presently sleep can be difficult despite the Ambien. His appetite is adequate, noting they do not give enough food here, but he finds he eats very slowly and picks at it. Weight has not changed. Energy is markedly diminished. Memory and concentration are poor. He describes his mood continues quite depressed without clear diurnal variation. He acknowledges thoughts of suicide have notchanged, but he is not sure if he will act on them. He denies auditory or visual hallucinations or history of mood swings. Of note, when asked about physical symptoms he describes there is something we should know about him, and describes he has a small penis. He notes it may not have always been the case, but seems tohave been a concern more recently, and he regrets that he did not have that medically checked out. SUBSTANCE USE HISTORY: He acknowledges he drank scotch until he had gallbladder surgery and was told that he had scarring on his liver, needed to stop and did so. He smokes intermittently. PAST MEDICAL HISTORY: Has had 3 stents placed, gallbladder surgery as noted. Diabetes mellitus on oral agents. ALLERGIES: None. FAMILY HISTORY: Reports 2 sisters are treated with depression. DEVELOPMENTAL HISTORY: Raised in [place], having an older brother who several years ago in an apartment fire, possibly drinking at the time and with a cigarette. He describes growing up rather isolated. Denies issues of abuse. He describes being expelled as a tenth grader for acting out in class. We did not discuss his first marriage. Daughter is a product of the first marriage. MENTAL STATUS EXAMINATION: A 60-year-old white male. He has marked psychomotor retardation, latencyof speech. He exhibits difficulty finding words and is aware he has trouble expressing himself at times and rather ruminative fashion. He is oriented to 03/26, [facility] day. IMPRESSION Terry I: Major depressive disorder, chronic, recurrent, possibly with somatic delusions. Terry II: Deferred. Terry III: Status post zolpidem overdose, history of cardiac stents, diabetes mellitus. Terry IV: Stressors moderate, related isolation, loss of . Terry V: 35. This patient describes long history of isolation and lack of assertion, likely clouded by present cognitive distortions with his mood disorder. He has had 2 hospitalizations with different trials of medications and had a very serious suicide attempt with intent to , though with an element of rescue. There may be elements of somatic delusions as noted above. RECOMMENDATION: Reviewed with him the role of ECT. He has seen the ECT video, focusing on the report he had heard of 1 in 10,000 deaths. We reviewed the risks and benefits in perspective, described alternatives and options. He was not able to make a commitment at this time to pursue ECT, but is accepting of an anesthesia consultation for his particular focus on his cardiac concerns. I do feel he would be an appropriate candidate to pursue ECT. He expects his daughter may visit later today and will review this with her. We recommended beginning in the right unilateral mode. TIME SPENT: Forty-five minutes [id number], all of which was spent reviewing the above history anddeveloping the treatment plan. Juwan Walter MD 10 31 AM / Juwan Walter MD cs Confirmation: [id number] Dictation ID: [id number] documented in this encounter OR Notes * Anesthesia Preprocedure Evaluation - Community Development Officer, Scan - 05/13/2011 0839 EST * Anesthesia Procedure Notes - Community Development Officer, Scan - 05/02/2011 0934 EST * Anesthesia Procedure Notes - Community Development Officer, Scan - 04/28/2011 0931 EST * Anesthesia Procedure Notes - Community Development Officer, Scan - 04/25/2011 0920 EST * Anesthesia Procedure Notes - Community Development Officer, Scan - 04/23/2011 0909 EST * Anesthesia Procedure Notes - Community Development Officer, Scan - 04/18/2011 0850 EST * Anesthesia Procedure Notes - Community Development Officer, Scan - 04/16/2011 0958 EST * Anesthesia Procedure Notes - Community Development Officer, Scan - 04/09/2011 0951 EST * Anesthesia Procedure Notes - Community Development Officer, Scan - 04/08/2011 0943 EST * Anesthesia Procedure Notes - Community Development Officer, Scan - 04/07/2011 1043 EST * Anesthesia Procedure Notes - Community Development Officer, Scan - 04/04/2011 0938 EST * Anesthesia Procedure Notes - Community Development Officer, Scan - 04/02/2011 0915 EST * Anesthesia Procedure Notes - Community Development Officer, Scan - 03/27/2011 1013 EST documented in this encounter Miscellaneous Notes * Scanned Note-Null - Community Development Officer, Scan - 05/13/2011 0839 EST * Scanned Note-Null - Community Development Officer, Scan - 05/13/2011 0839 EST * Scanned Note-Null - Community Development Officer, Scan - 05/13/2011 0839 EST * Scanned Note-Null - Community Development Officer, Scan - 05/13/2011 0839 EST * Scanned Note-Null - Community Development Officer, Scan - 05/13/2011 0839 EST * Plan of Care - Community Development Officer, Scan - 05/13/2011 0839 EST * Scanned Note-Null - Community Development Officer, Scan - 05/09/2011 1337 EST * Plan of Care - Ivett Michel RN - 05/05/2011 0545 EST Problem: ALTERATION IN SLEEP Goal: Reports Nightly Sleep, Duration And Quality Outcome: Not Met This Shift Active Multi-Disciplinary problems: ALTERED THOUGHT PROCESSES [517260] (03/22/11) ALTERATION IN SLEEP [488535] (03/23/11) KNOWLEDGE DEFICIT [869073] (04/07/11) NUTRITION [429750] (04/07/11) RISK FOR INFECTION [513302] (04/07/11) GLYCEMIA IMBALANCE [637298] (04/07/11) ANXIETY [181338] (04/09/11) Ineffective Coping [772793] (04/09/11) SELF CARE DEFICIT [477515] (04/09/11) ALTERATION IN MOOD [847206] (04/09/11) Discharge Planning [433482] (04/27/11) Data: See observation record. Action: Continued on every 30 minute observations through the night. Response: Requested/received ambien 10 mg po at 2356. Remained awake watching TV and snacking untilretiring to bed and asleep at 0152. Appeared to sleep comfortably x 4 hours. Ivett Michel RN 05/05/2011 5:43 * Plan of Care - Christina Torres - 05/04/2011 2207 EST Problem: ANXIETY Goal: Anxiety Is At Manageable Level Outcome: Ongoing Data: Pt in mostly good spirits, full affect;continues ruminative at times and states near-constantsensation of uneasiness or tension which manifests in muscle tension. Requested prn for anxiety; given atarax 50mg at 2010 with fair results. FSBS at dinner was 201; at bedtime was 161. Action: Pt monitored on routine checks for safety. Psych shift assessment. 1:1 support. Gave medications. Encouraged positive thinking, alternative anxiety- coping mechanisms such as exercise and structured activities, therapy. Response: Pt able to express positive thinking about future, good insight which is easily lost in depressive thinking patterns (pt knows this). Has some trepidation about crashing upon discharge but also some insight about that.Currently calm with no complaints. CHRISTINA TORRES RN 05/04/2011 22:00 * Plan of Care - Alice Fatima RN - 05/04/2011 1416 EST Problem: ALTERATION IN MOOD Goal: Desires Improved Mood Intervention: Staff observations of behavior Active Multi-Disciplinary problems: ALTERED THOUGHT PROCESSES [243920] (03/22/11) ALTERATION IN SLEEP [648304] (03/23/11) KNOWLEDGE DEFICIT [965567] (04/07/11) NUTRITION [196260] (04/07/11) RISK FOR INFECTION [389649] (04/07/11) GLYCEMIA IMBALANCE [934818] (04/07/11) ANXIETY [665830] (04/09/11) Ineffective Coping [671168] (04/09/11) SELF CARE DEFICIT [286962] (04/09/11) ALTERATION IN MOOD [257462] (04/09/11) Discharge Planning [515377] (04/27/11) Data: The patient denies SI and denies pain. He was out of him room for meals only, I'm hibernating. He denies any distress, says there is nothing I can do for him. Finger sticks 108 and 70. Action: Maintained on routine observations and provided safety in environment of care. Assessed pain and thoughts of suicide. Monitored behavior and functioning. Provided support and focused on pt's strengths. Administered medication and assessed efficacy and SE. Response: In room all day thinking and hibernating. Denies SI and pain. Alice Fatima RN 05/04/2011 14:12 * Plan of Care - Christina Torres - 05/03/2011 5086 EST Problem: ALTERED THOUGHT PROCESSES Goal: Desires Improvement In Ability To Think & Concentrate Outcome: Ongoing Data: Pt pleasant, cooperative throughout; Denied SI, HI.States anxiety, unease described as actualmuscle tension in sides of abdomen. Atarax 25mg at 1846 with little effect. Later stated anxiety caused headache 09/27. Ibuprofen 600mg at 2042 reduced pain to 3/10. Stated anxiety probably r/t fears about discharge and new situation Thursday. Action: Pt monitored on routine checks for safety. Psych shift assessment. Gave medications. Med education.1:1 support. Encouraged groups. Response: MD ordered additional dose of atarax,but encouraged use of scheduled ambien first to relieve anxiety. Pt took ambien at 2217. Awaiting results. Pt agreed to discuss anxiety with MD and utilize other anxiety coping mechanisms such as meditation. Watching tv with no further complaint at this time. CHRISTINA TORRES RN 05/03/2011 22:47 * Plan of Care - Cyndie Redman - 05/03/2011 0654 EST Problem: ALTERATION IN SLEEP Goal: Reports Nightly Sleep, Duration And Quality Intervention: Document duration, quality of sleep and reasons Active Multi-Disciplinary problems: ALTERED THOUGHT PROCESSES [716976] (03/22/11) ALTERATION IN SLEEP [146628] (03/23/11) KNOWLEDGE DEFICIT [884104] (04/07/11) NUTRITION [797897] (04/07/11) RISK FOR INFECTION [070194] (04/07/11) GLYCEMIA IMBALANCE [828416] (04/07/11) ANXIETY [314898] (04/09/11) Ineffective Coping [873207] (04/09/11) SELF CARE DEFICIT [599701] (04/09/11) ALTERATION IN MOOD [776214] (04/09/11) Discharge Planning [025221] (04/27/11) Data: pt watched tv in the activities room for a little while. He was in bed and asleep shortly after 0100. He appeared to sleep all night. Action: monitored on routine observations Response: pt sleeping. No signs of distress. Will continue to monitor. Cyndie Redman RN 05/03/2011 6:43 * Plan of Care - Dahlia Hernández - 05/02/2011 2246 EST Active Multi-Disciplinary problems: ALTERED THOUGHT PROCESSES [746100] (03/22/11) ALTERATION IN SLEEP [645246] (03/23/11) KNOWLEDGE DEFICIT [602107] (04/07/11) NUTRITION [093031] (04/07/11) RISK FOR INFECTION [368489] (04/07/11) GLYCEMIA IMBALANCE [401864] (04/07/11) ANXIETY [160276] (04/09/11) Ineffective Coping [065321] (04/09/11) SELF CARE DEFICIT [723567] (04/09/11) ALTERATION IN MOOD [348830] (04/09/11) Discharge Planning [103411] (04/27/11) Data: Pt slept in much of the afternoon, 1700 fs Hs fs . Talked of his stress in preparation for discharge to his new apartment, described a stitch in his side which he attributed to anxiety. Pt suggested it may be helpful to have a small dose of ativan (perhaps 0.5 mg, he said) upon discharge to help with the transition. R.N. Agreed to pass along this request. Good spirits, social, seems ready to go soon. Action: Plan on discharge early next week, medications as ordered, groups, discharge activity. Response: Looking ready for the move to [facility] near his daughter.. Dahlia Hernández RN 05/02/2011 22:49 * Plan of Care - Tamika Cordero - 05/02/2011 1521 EST Problem: Discharge Planning Goal: Patient/Family Participate In Treatment And DC Plans Outcome: Ongoing Active Multi-Disciplinary problems: ALTERED THOUGHT PROCESSES [707497] (03/22/11) ALTERATION IN SLEEP [606884] (03/23/11) KNOWLEDGE DEFICIT [763119] (04/07/11) NUTRITION [440237] (04/07/11) RISK FOR INFECTION [295100] (04/07/11) GLYCEMIA IMBALANCE [752711] (04/07/11) ANXIETY [156492] (04/09/11) Ineffective Coping [296047] (04/09/11) SELF CARE DEFICIT [707571] (04/09/11) ALTERATION IN MOOD [534944] (04/09/11) Discharge Planning [690257] (04/27/11) Data: Was npo for ECT this morning. Maria Isabel was inserted by the IVRN. Was escorted to PPR by the M[facility] for ECT and was returned to the unit after Recovery in the PACU. Denied side effects of ECT other than malaise and fatigue. Finger stick at 0830 was 125 and at noon was 282 (after eating breakfast).Did not eat lunch. Rested in bed during the afternoon. Action: Maintain npo prior to ECT. Monitor for side effects from ECT. Offer one to one. Encourage groups when able. Utilize teaching opportunities. Explore plans for discharge. Response: Denied side effects of ECT other than fatigue and malaise. Rested in bed after lunch. Wasless depressed and did not voice suicidal ideation. Continued to look forward to discharge on Thursday and at the same time was anxious about leaving the hospital. Tamika Cordero RN 05/02/2011 13:28 * Anesthesia Post-Eval - [place], Monika Rubina - 05/02/2011 0930 EST Post Anesthesia Evaluation Note Date of Service: 05/02/2011 Shahnaz Santiago, a 60 y.o. year old male has received General Anesthesia He has been evaluated, assessed and discharged from anesthesia care with stable cardiorespiratory function and alert mental status. The last set of recorded vital signs and pain rating were reviewed: Temp: 35.7 ??C (96.3 ??F) (05/02/11 08), BP: 106/67 mmHg (05/02/11799), Resp: 16 (05/02/11799), SpO2: 99 % (05/02/11799), Pulse: 78 (05/02/11799),Numeric Pain Level (Scale 1-10): 0 Adult Nonverbal Pain ScaleTotal: 0 Shahnaz Santiago participated in this evaluation unless otherwise noted. His pain, nausea and vomiting have been managed and his body temperature and fluid balance have been restored. Additional monitoring and assessment needs have been addressed. If present, any postoperative events are documented below. If the regional block for postoperative analgesia was intended to last greater than 48 hours, Shahnaz Santiago will be followed by the Acute Pain Service. MONIKA KAMARA MD 05/02/2011 9:30 * Anesthesia Pre-al - Kee Fischer - 05/02/2011 0912 EST Anesthesia ECT Pre-Evaluation Name: SHAHNAZ SANTIAGO : 1950 Date: 05/02/2011 Age: 60 y.o. No Known Allergies Patient Active Problem List Diagnoses ??? Diabetes mellitus ??? Major depression ??? CAD (coronary artery disease) ??? Nephrolithiasis No outpatient prescriptions have been marked as taking for the 03/22/11 encounter (Hospital Encounter) with Mary Jauregui MD. Vital Signs: BP 106/67 Pulse 78 Temp(Src) 35.7 ??C (96.3 ??F) (Tympanic) Resp 16 Ht 185.4 cm (72.99) Wt 100.562 kg (221 lb 11.2 oz) BMI 29.26 kg/m2 SpO2 99% Fasting Status Confirmed: Yes Airway Evaluation: Mallampati: 2 Mouth Opening: Normal Jaw Thrust: Normal T-M Distance: Normal Neck: ROM Normal Teeth: Full Dentures ASA Physical Status: III Anesthesia Consent obtained on a separate document. See Anesthesia Consent form for details. Unless otherwise noted, follow standard anesthesia pre-operative protocol. KEE FISCHER MD 05/02/2011 * ECT Report - Juwan Walter MD - 05/02/2011 0902 EST Psychiatry Procedure Note Title of Procedure: Electroconvulsive Therapy Date Performed: 05/02/2011 Time Performed: 900 Treatment Number: 12 Treatment Type: Index Treatment Visit: Inpatient Performed by: JWUAN Manzanares MD, personally performed this procedure in its entirety. Indications and/or Provisional Diagnosis: 296.34: Major Depressive Disorder, severe, with Psychoticfeatures Consent: Written consent was obtained from patient/guardian after being informed of the risks, benefits and alternatives. Time Out: A time-out was completed prior to procedure verifying correct patient, procedure, settings and site. Patient's identification was Verbal;Armband verified, the consent for Right Unilateral site and Yesthe setting of the ECT machine was verified by Luke Flores and Dr. Juwan Walter Procedure Technique/Description of Procedure: Electrode Placement: Right Unilateral Dosing Protocol: 0.3 ms Pulse-width Protocol ([facility]) Pulse width: 0.3 msec Frequency: 50 Hz Duration: 5 sec Current: 800 mA Type of Anesthesia/Sedation/Doses Induction Agent: Dose: 70 mg Other Anesthetic: meth Seizure Duration: Peripheral: 33 sec Electrical: 53 sec Unless otherwise noted, there was no blood loss, specimens removed, cultures obtained, or drains retained. Subjective: Discussed with Dr. Jauregui, pt had meeting with daughter, today is to be last tx, will not have C/M. Pt states not sure how helpful ECT has been as he came in on perphenazine which he didn't like ( note initial MADRS 43, with psychotic features, Madrs 8 yesterday) Objective: Alert, much less psychomotor retarded from baseline, clear sensorium, 0 cog c/o Post Procedure Diagnosis and Findings: 296.34: Major Depressive Disorder, severe, with Psychotic features Complications: None Plan: Today is last tx, pt aware can return is mood recurrence JUWAN WALTER MD 05/02/2011 9:14 * Plan of Care - Cyndie Redman - 05/02/2011 0700 EST Problem: ALTERATION IN SLEEP Goal: Reports Nightly Sleep, Duration And Quality Intervention: Document duration, quality of sleep and reasons Active Multi-Disciplinary problems: ALTERED THOUGHT PROCESSES [617240] (03/22/11) ALTERATION IN SLEEP [180192] (03/23/11) KNOWLEDGE DEFICIT [075078] (04/07/11) NUTRITION [786995] (04/07/11) RISK FOR INFECTION [211246] (04/07/11) GLYCEMIA IMBALANCE [391608] (04/07/11) ANXIETY [534913] (04/09/11) Ineffective Coping [774758] (04/09/11) SELF CARE DEFICIT [017278] (04/09/11) ALTERATION IN MOOD [991628] (04/09/11) Discharge Planning [821321] (04/27/11) Data: pt awake at beginning of acupressure therapist watching tv. Received ambien at midnight. Pt npo since midnight. He was in bed and asleep by 0130 and appeared to sleep for the rest of the night. Action: monitored on routine observations Response: pt sleeping, no signs of distress. Cyndie Redman RN 05/02/2011 6:58 * Plan of Care - Dahlia Hernández - 05/01/2011 2132 EST Active Multi-Disciplinary problems: ALTERED THOUGHT PROCESSES [524584] (03/22/11) ALTERATION IN SLEEP [969613] (03/23/11) KNOWLEDGE DEFICIT [720074] (04/07/11) NUTRITION [359853] (04/07/11) RISK FOR INFECTION [240879] (04/07/11) GLYCEMIA IMBALANCE [676478] (04/07/11) ANXIETY [491787] (04/09/11) Ineffective Coping [622277] (04/09/11) SELF CARE DEFICIT [765168] (04/09/11) ALTERATION IN MOOD [249423] (04/09/11) Discharge Planning [678481] (04/27/11) Data: Pt prepared for ECT, npo after [place] no Benz0s after 1999. Saline lock ordered for the A.M. Pt Talked about Discharge plans and his anxiety. Agrees that he has benefited form tx here. Action: Prepare for ECT Thursday and discharge next week. Response: Some discharge anxiety. Seems to have a good plan, Dahlia Hernández RN 05/01/2011 21:32 * Plan of Care - Abril Sheppard RN - 05/01/2011 0619 EST Problem: ALTERATION IN SLEEP Goal: Reports Nightly Sleep, Duration And Quality Intervention: Document duration, quality of sleep and reasons Active Multi-Disciplinary problems: ALTERED THOUGHT PROCESSES [818360] (03/22/11) ALTERATION IN SLEEP [199394] (03/23/11) KNOWLEDGE DEFICIT [290212] (04/07/11) NUTRITION [566558] (04/07/11) RISK FOR INFECTION [549979] (04/07/11) GLYCEMIA IMBALANCE [689907] (04/07/11) ANXIETY [442873] (04/09/11) Ineffective Coping [265767] (04/09/11) SELF CARE DEFICIT [256629] (04/09/11) ALTERATION IN MOOD [380943] (04/09/11) Discharge Planning [926251] (04/27/11) Data: Pt in TV room at start of shift watching TV, coloring & listening to his I-pod. V/s wnl. C/o a knot in my stomach & being afraid of not being able to fall asleep, denied nausea, endorsed anxiety & described it as tightness. When asked about pain, reported 7/10 right shoulder pain, declined available interventions. Expressed unhappiness with d/c'ing of percocet & ativan, even though it was only 0.5 mg, stating that the percocet would also help him sleep in addition toaddressing pain. Action: Paged on-call resident to request non-narcotic, non-benzo anti-anxiety such as Benadryl or Atarax. Encouraged pt to try to sleep before becoming overly concerned with inability to fall asleep. Encouraged relaxation techniques. Monitored pain, v/s, sleep. Available for supportive interactions as needed. Response: No new orders, pt can address concerns with team on day shift. Pt to bed ~ 0230, asleep on 0300 observations, with no awakening observed. Abril Sheppard RN 05/01/2011 6:11 * Plan of Care - Zamzam Sher RN - 04/30/2011 797 EST Problem: ALTERATION IN MOOD Goal: Desires Improved Mood Outcome: Ongoing Active Multi-Disciplinary problems: ALTERED THOUGHT PROCESSES [668254] (03/22/11) ALTERATION IN SLEEP [743595] (03/23/11) KNOWLEDGE DEFICIT [678591] (04/07/11) NUTRITION [496679] (04/07/11) RISK FOR INFECTION [029735] (04/07/11) GLYCEMIA IMBALANCE [000476] (04/07/11) ANXIETY [347343] (04/09/11) Ineffective Coping [427702] (04/09/11) SELF CARE DEFICIT [667926] (04/09/11) ALTERATION IN MOOD [848969] (04/09/11) Data: Patient napped at start of shift. Reports feeling very tired after ECT today. Was awake by 1630. Spent time out of his room. FS at 1700 was 155. Ate dinner in the TV room with peers. Appetite is fine. Attended evening art group. FS at HS was 142. Stayed out of his room coloring and socializing with peers. Had PRN Motrin for pain 6/10 shoulder pain at 2044. Is on routine observations. Has next ECT Thursday. Plan is for DC Thursday. Action: Assessed for SI/HI and self harm. Provided 1:1. Encouraged groups and spending time out of room. Monitored for pain and anxiety and provided PRN medication as needed. Response: Patient denies SI/HI and self harm thoughts. Mood blunted. Affect restricted. Is feeling anxious about upcoming discharge and move to a new apartment. Requested ativan for anxiety but no longer has it available. Resident notified but no further ativan ordered. Encouraged patient to work on his assignment to write 5 positive things about himself. Was out of his room all evening watching TV, coloring, and socializing with peers. Pleasant on all interactions. Requests to have Ambien at 2215. Currently still awake watching TV and coloring. Will continue to monitor. Zamzam Sher RN 04/30/2011 21:52 * Plan of Care - Tamika Cordero - 04/30/2011 1527 EST Problem: Discharge Planning Goal: Patient/Family Participate In Treatment And DC Plans Outcome: Ongoing Active Multi-Disciplinary problems: ALTERED THOUGHT PROCESSES [875813] (03/22/11) ALTERATION IN SLEEP [643479] (03/23/11) KNOWLEDGE DEFICIT [955144] (04/07/11) NUTRITION [588600] (04/07/11) RISK FOR INFECTION [622964] (04/07/11) GLYCEMIA IMBALANCE [390675] (04/07/11) ANXIETY [428741] (04/09/11) Ineffective Coping [161216] (04/09/11) SELF CARE DEFICIT [958302] (04/09/11) ALTERATION IN MOOD [541858] (04/09/11) Discharge Planning [719760] (04/27/11) Data: Was npo for ECT this morning. Had a maria isabel in place. Was escorted to [facility] by the [facility] and returned to the unit after the patient recovered from ECT. Stated that he felt tired and a little woozy after the treatment. Ate breakfast in the dining room and went to bed. Fingerstick at 0832 was = 105and at 1222 = 169. Did not eat lunch. Stated that he had some discomfort in the left shoulder when reaching for something. Action: Assess for suicidal ideation. Offer one to one. Encourage groups. Utilize teaching opportunities. Explore discharge plans. Assess for positive results of ECT. Monitor for side effects of ECT. Response: Had a big breakfast at about 1020 and did not have lunch. On one to one discussed his anxiety about discharge on Thursday. Was able to verbalize his concerns about leaving. Liked his current apartment but it is too isolated. His family will help him to move to an apartment that is close to his family. Tamika Cordero RN 04/30/2011 12:55 1525 Resting in bed at present. * Anesthesia Post-Eval - Mary Schaffer - 04/30/2011926 EST Post Anesthesia Evaluation Note Date of Service: 04/30/2011 Shahnaz Santiago, a 60 y.o. year old male has received General Anesthesia He has been evaluated, assessed and discharged from anesthesia care with stable cardiorespiratory function and alert mental status. The last set of recorded vital signs and pain rating were reviewed: Temp: 36.1 ??C (97 ??F) (04/30/11832), Heart Rate: 74 BPM (04/30/11914), BP: 113/72 mmHg (04/30/11914), Resp: 18 (04/30/11914), SpO2: 99 % (04/30/11914), Pulse: 84 (04/30/11832),Numeric Pain Level (Scale 1-10): 0 Adult Nonverbal Pain ScaleTotal: 0 Shahnaz Santiago participated in this evaluation unless otherwise noted. His pain, nausea and vomiting have been managed and his body temperature and fluid balance have been restored. Additional monitoring and assessment needs have been addressed. If present, any postoperative events are documented below. If the regional block for postoperative analgesia was intended to last greater than 48 hours, Shahnaz Santiago will be followed by the Acute Pain Service. MARY SCHAFFER MD 04/30/2011 9:27 * Anesthesia Pre-Eval - Howard Lima CRNA - 04/30/2011856 EST Anesthesia ECT Pre-Evaluation Name: SHAHNAZ SANTIAGO : 1950 Date: 04/30/2011 Age: 60 y.o. No Known Allergies Patient Active Problem List Diagnoses ??? Diabetes mellitus ??? Major depression ??? CAD (coronary artery disease) ??? Nephrolithiasis No outpatient prescriptions have been marked as taking for the 03/22/11 encounter (Hospital Encounter) with Mary Jauregui MD. Vital Signs: BP 115/73 Pulse 84 Temp(Src) 36.1 ??C (97 ??F) (Tympanic) Resp 16 Ht 185.4 cm (72.99) Wt100.562 kg (221 lb 11.2 oz) BMI 29.26 kg/m2 SpO2 100% Fasting Status Confirmed: Yes Airway Evaluation: Mallampati: 1 Mouth Opening: Normal Jaw Thrust: Normal T-M Distance: Normal Neck: ROM Normal Teeth: Normal ASA Physical Status: III Anesthesia Consent obtained on a separate document. See Anesthesia Consent form for details. Unless otherwise noted, follow standard anesthesia pre-operative protocol. HOWARD LIMA CRNA 04/30/2011 * ECT Report - Leni Dang MD - 04/30/2011 0836 EST Psychiatry Procedure Note Title of Procedure: Electroconvulsive Therapy Date Performed: 04/30/2011 Time Performed: 0850 Treatment Number: 11 Treatment Type: Index Treatment Visit: Inpatient Performed by: Leni Manzanares MD, personally performed this procedure in its entirety. Indications and/or Provisional Diagnosis: 296.34: Major Depressive Disorder, severe, with Psychoticfeatures Consent: Written consent was obtained from patient/guardian after being informed of the risks, benefits and alternatives. Time Out: A time-out was completed prior to procedure verifying correct patient, procedure, settings and site. Patient's identification was Verbal;Armband verified, the consent for Right Unilateral site and Yesthe setting of the ECT machine was verified by Cely Rocha RN and Dr. Shaheen Dang Procedure Technique/Description of Procedure: Electrode Placement: Right Unilateral Dosing Protocol: 0.3 ms Pulse-width Protocol ([facility]) Pulse width: 0.3 msec Frequency: 50 Hz Duration: 5 sec Current: 800 mA Type of Anesthesia/Sedation/Doses Induction Agent: Dose: 70 mg Other Anesthetic: metho 75 Seizure Duration: Peripheral: 17 sec Electrical: 23 sec Unless otherwise noted, there was no blood loss, specimens removed, cultures obtained, or drains retained. Subjective: A little grumpy but otherwise OK. No SI. No problems with ECT except dry mouth afterward. Objective: Affect constricted but not severely so; visibly improved. Joked a little bit. Normal speech, motor. Post Procedure Diagnosis and Findings: 296.34: Major Depressive Disorder, severe, with Psychotic features Complications: None Plan: Continue RUL ECT for now. Leni Dang MD 04/30/2011 8:49 * Plan of Care - Abril Sheppard RN - 04/30/2011 0632 EST Problem: ALTERATION IN SLEEP Goal: Reports Nightly Sleep, Duration And Quality Intervention: Document duration, quality of sleep and reasons Active Multi-Disciplinary problems: ALTERED THOUGHT PROCESSES [152709] (03/22/11) ALTERATION IN SLEEP [743274] (03/23/11) KNOWLEDGE DEFICIT [555878] (04/07/11) NUTRITION [980256] (04/07/11) RISK FOR INFECTION [232514] (04/07/11) GLYCEMIA IMBALANCE [577530] (04/07/11) ANXIETY [578492] (04/09/11) Ineffective Coping [383788] (04/09/11) SELF CARE DEFICIT [639384] (04/09/11) ALTERATION IN MOOD [933761] (04/09/11) Discharge Planning [324725] (04/27/11) Data: Pt in TV room @ start of shift. NPO after midnight for ECT. Pt to bed around 0030, after stating to MHT that he had been nodding & thought he might be tired. Action: Perform routine observations. Assure NPO status. Available for supportive interactions as needed. Response: Pt asleep within 30 minutes of retiring to bed. No observed awakenings. Pt slept 6.5 hours. Abril Sheppard RN 04/30/2011 6:29 * Plan of Care - Zamzam Sher RN - 04/29/2011 3723 EST Problem: ALTERATION IN MOOD Goal: Desires Improved Mood Outcome: Ongoing Active Multi-Disciplinary problems: ALTERED THOUGHT PROCESSES [293991] (03/22/11) ALTERATION IN SLEEP [762634] (03/23/11) KNOWLEDGE DEFICIT [496026] (04/07/11) NUTRITION [751116] (04/07/11) RISK FOR INFECTION [888169] (04/07/11) GLYCEMIA IMBALANCE [897585] (04/07/11) ANXIETY [485039] (04/09/11) Ineffective Coping [323984] (04/09/11) SELF CARE DEFICIT [957824] (04/09/11) ALTERATION IN MOOD [002202] (04/09/11) Data: Patient awake and out of his room all shift. Spent time on laptop looking at pictures of apartment he may be moving into. FS at 1700 was 237. Spent time in milieu reading and watching TV. Did not attend groups this shift. Ate dinner in the TV room with peers. Appetite is fine. FS at HS was 206. Did request Ativan at 1715 and PRN had been discontinued so resident notified and now does ordered. Had PRN Percocet for pain 6/10 shoulder pain at 2050. Is on routine observations. Has next ECT tomorrow. Plan is for 2 more ECT treatments and DC Thursday or Thursday. Is NPO after midnight and will need SL placed in the morning. Action: Assessed for SI/HI and self harm. Provided 1:1. Encouraged groups and spending time out of room. Monitored for pain and anxiety and provided PRN medication as needed. Reminded of NPO status after midnight. Response: Patient denies SI/HI and self harm thoughts. Mood blunted. Affect restricted. Is feeling anxious about upcoming discharge and move to a new apartment. Is hoping to not be discharged until Thursday so his daughter will be able to move most of his belongings over the weekend. Feels that he still needs PRN Ativan at least for a couple more days as he is not leaving until Thursday or Thursday. Had now dose (Ativan 0.5 mg) this evening. Was out of his room all evening reading, watching TV, coloring, and socializing with peers. Pleasant on all interactions. Requests to have Ambien at 2230. Currently still awake watching TV. Will continue to monitor. Zamzam Sher RN 04/29/2011 21:52 * Plan of Care - Meghan Melchor RN - 04/29/2011 0617 EST Problem: NUTRITION Patient unable to self-regulate blood glucose level Goal: Blood Glucose Control Maintain plasma glucose levels within expected range. Outcome: Met This Shift Active Multi-Disciplinary problems: ALTERED THOUGHT PROCESSES [065521] (03/22/11) ALTERATION IN SLEEP [014461] (03/23/11) KNOWLEDGE DEFICIT [929025] (04/07/11) NUTRITION [294426] (04/07/11) RISK FOR INFECTION [902087] (04/07/11) GLYCEMIA IMBALANCE [657698] (04/07/11) ANXIETY [147944] (04/09/11) Ineffective Coping [048092] (04/09/11) SELF CARE DEFICIT [383396] (04/09/11) ALTERATION IN MOOD [821311] (04/09/11) Discharge Planning [656325] (04/27/11) Data: Denies SI/HI. Denies pain. Pleasant, cooperative and easy to engage. Ate meals in the DR; social with others. Had phototherapy this morning. Having a family meeting this afternoon; daughter unable to come but is available by phone. Action: Level III on routine observation. Psych shift assessment. Administered medication as scheduled. Supportive 1:1. Encouraged to stay out of bed during day time. Blood sugar monitored as ordered; fs before breakfast 101; fs before lunch 89. Response: [place] sleepy after breakfast; took a short nap then agreed to get up and stay out of bed for remainder of the day; pt has been mostly complaint with this so far today. Compliant with scheduled medications. Will continue to monitor. MEGHAN MELCHOR RN 04/29/2011 13:48 * Plan of Care - Cyndie Redman - 04/29/2011 0648 EST Problem: ALTERATION IN SLEEP Goal: Reports Nightly Sleep, Duration And Quality Intervention: Document duration, quality of sleep and reasons Active Multi-Disciplinary problems: ALTERED THOUGHT PROCESSES [264881] (03/22/11) ALTERATION IN SLEEP [975106] (03/23/11) KNOWLEDGE DEFICIT [421073] (04/07/11) NUTRITION [110863] (04/07/11) RISK FOR INFECTION [435794] (04/07/11) GLYCEMIA IMBALANCE [104063] (04/07/11) ANXIETY [521955] (04/09/11) Ineffective Coping [945125] (04/09/11) SELF CARE DEFICIT [891036] (04/09/11) ALTERATION IN MOOD [444740] (04/09/11) Discharge Planning [070645] (04/27/11) Data: pt awake at beginning of acupressure therapist watching tv in common area. He requested and received ambien at 2357. He was in bed ans asleep shortly after 0230. Awake briefly at 0530. Action: monitored on routine observations Response: appeared to sleep about 4.5 hours last night. Currently sleeping. No signs of distress. Cyndie Redman RN 04/29/2011 6:46 * Plan of Care - Phoebe Epps RN - 04/28/2011 2135 EST Problem: Ineffective Coping Goal: Verbalizes Alternatives To Suicide Outcome: Ongoing Data: Pt pleasant and cooperative with all interactions this shift. Pt reports having good mood today with reduce lethargy despite ECT. Pt remains apprehensive about planning for discharge as financial worries still burden him. Hopeful regarding family mtg with daughter tomorrow. Pts daughter called and updated about Pts condition. Action: Pt assessed for pain and SI/SH. Behaviors and glucose monitored. Encouraged continuation ofgroups and participation in discharge plans. Encouraged to focus on positive aspects instead of negative. Scheduled and PRNs per order. Routine obs. Response: Pt reports moderate shoulder pain~releived with PRNs. Also reports moderate anxiety~ativan effective. Pt had brighter affect, appropriate behaviors and interactions with peers. Spent time in milieu reading book and working on art. Good appetite and eye contact, humorous with staff and peers. Med complaint, remains safe on the unit. PHOEBE EPPS RN 04/28/2011 21:23 * Plan of Care - Phuong Salmeron RN - 04/28/2011 1446 EST Problem: ALTERATION IN MOOD Goal: Desires Improved Mood Intervention: Staff observations of behavior Active Multi-Disciplinary problems: ALTERED THOUGHT PROCESSES [896781] (03/22/11) ALTERATION IN SLEEP [767861] (03/23/11) KNOWLEDGE DEFICIT [376920] (04/07/11) NUTRITION [890725] (04/07/11) RISK FOR INFECTION [062623] (04/07/11) GLYCEMIA IMBALANCE [932520] (04/07/11) ANXIETY [701769] (04/09/11) Ineffective Coping [306688] (04/09/11) SELF CARE DEFICIT [971004] (04/09/11) ALTERATION IN MOOD [716242] (04/09/11) Discharge Planning [708399] (04/27/11) Data: polite and coop. Affect mildly restricted but smiles approp'ly. Denies SI/SH thoughts. Deniesshoulder pain ( worth mentioning). Had ECT w/o incident. Ate bkfst on return. Declined lunch bec bkfst was so late. Took all meds. FS's 110 and 250 ac respectively. Used light box x 30 minutes after ect. Has not been observed in grps. Watched TV in TV rm and rested on bed. Action: freq brief supportive contacts, assessments, meds, enc oob and oor and grps. Response: safe on the unit, tolerated ect , pain in good control. Phuong Salmeron RN 04/28/2011 14:42 * Anesthesia Post-Eval - Iggy Taylor MD - 04/28/2011 0949 EST Post Anesthesia Evaluation Note Date of Service: 04/28/2011 Shahnaz Santiago, a 60 y.o. year old male has received General Anesthesia He has been evaluated, assessed and discharged from anesthesia care with stable cardiorespiratory function and alert mental status. The last set of recorded vital signs and pain rating were reviewed: Temp: 36.1 ??C (97 ??F) (04/28/11925), Heart Rate: 72 BPM (04/28/11929), BP: 129/78 mmHg (04/28/11929), Resp: 16 (04/28/11929), SpO2: 100 % (04/28/11929),Numeric Pain Level (Scale 1-10): 0 Adult Nonverbal Pain ScaleTotal: 0 Shahnaz Santiago participated in this evaluation unless otherwise noted. His pain, nausea and vomiting have been managed and his body temperature and fluid balance have been restored. Additional monitoring and assessment needs have been addressed. If present, any postoperative events are documented below. If the regional block for postoperative analgesia was intended to last greater than 48 hours, Shahnaz Santiago will be followed by the Acute Pain Service. IGGY TAYLOR MD 04/28/2011 9:49 * ECT Report - Juwan Walter MD - 04/28/2011910 EST Psychiatry Procedure Note Title of Procedure: Electroconvulsive Therapy Date Performed: 04/28/2011 Time Performed: 909 Treatment Number: 10 Treatment Type: Index Treatment Visit: Inpatient Performed by: JUWAN Manzanares MD, personally performed this procedure in its entirety. Indications and/or Provisional Diagnosis: 296.34: Major Depressive Disorder, severe, with Psychoticfeatures Consent: Written consent was obtained from patient/guardian after being informed of the risks, benefits and alternatives. Time Out: A time-out was completed prior to procedure verifying correct patient, procedure, settings and site. Patient's identification was Verbal;Armband verified, the consent for Right Unilateral site and Yesthe setting of the ECT machine was verified by Abdulaziz Loo RN and Dr. Juwan Walter Procedure Technique/Description of Procedure: Electrode Placement: Right Unilateral Dosing Protocol: 0.3 ms Pulse-width Protocol ([facility]) Pulse width: 0.3 msec Frequency: 50 Hz Duration: 5 sec Current: 800 mA Type of Anesthesia/Sedation/Doses Induction Agent: Dose: 70 mg Other Anesthetic: meth Seizure Duration: Peripheral: 18 sec Electrical: 24 sec Unless otherwise noted, there was no blood loss, specimens removed, cultures obtained, or drains retained. Subjective: Reports doing well, anxious on the unit, which he takes means ready to go home, some depression more relates to uncertainty about the future Objective: Alert, much less psychomotor retarded Post Procedure Diagnosis and Findings: 296.33: Major Depressive Disorder, severe, without Psychoticfeatures and 296.34: Major Depressive Disorder, severe, with Psychotic features Complications: None Plan: Discuss with, cont to remission JUWAN WALTER MD 04/28/2011 9:17 * Anesthesia Pre-Pro - Carmen See, HEALTH OCCUPATIONS INSTRUCTOR - 04/28/2011 0904 EST Anesthesia ECT Pre-Evaluation Name: SHAHNAZ SANTIAGO : 1950 Date: 04/28/2011 Age: 60 y.o. No Known Allergies Patient Active Problem List Diagnoses ??? Diabetes mellitus ??? Major depression ??? CAD (coronary artery disease) ??? Nephrolithiasis No outpatient prescriptions have been marked as taking for the 03/22/11 encounter (Hospital Encounter) with Mary Jauregui MD. Vital Signs: BP 123/75 Pulse 88 Temp(Src) 35.9 ??C (96.6 ??F) (Tympanic) Resp 18 Ht 185.4 cm (72.99) Wt 100.562 kg (221 lb 11.2 oz) BMI 29.26 kg/m2 SpO2 98% Fasting Status Confirmed: Yes Airway Evaluation: Mallampati: 1 Mouth Opening: Normal Jaw Thrust: Normal T-M Distance: Normal Neck: ROM Normal Teeth: Normal ASA Physical Status: III Anesthesia Consent obtained on a separate document. See Anesthesia Consent form for details. Unless otherwise noted, follow standard anesthesia pre-operative protocol. No change in health. CARMEN MARQUEZ 04/28/2011 * Scanned Note-Null - Community Development Officer, Scan - 04/28/2011 0825 EST * Plan of Care - Teresita Colorado RN - 04/28/2011 0622 EST Problem: ALTERATION IN SLEEP Goal: Informs Staff If Unable To Sleep Outcome: Not Met This Shift Active Multi-Disciplinary problems: ALTERED THOUGHT PROCESSES [856362] (03/22/11) ALTERATION IN SLEEP [441518] (03/23/11) KNOWLEDGE DEFICIT [090504] (04/07/11) NUTRITION [323962] (04/07/11) RISK FOR INFECTION [354430] (04/07/11) GLYCEMIA IMBALANCE [972832] (04/07/11) ANXIETY [979154] (04/09/11) Ineffective Coping [533912] (04/09/11) SELF CARE DEFICIT [787214] (04/09/11) ALTERATION IN MOOD [751158] (04/09/11) Discharge Planning [824833] (04/27/11) Data: Pt awake until 0230, then asleep except briefly at 0330. No needs/concerns voiced. Action: Routine checks for safety. NPO for ECT in a.m. S/L order in computer. Response: Pt remained safe on the unit; continue to monitor. Teresita Colorado RN 04/28/2011 6:20 * Plan of Care - Zamzam Sher RN - 04/27/2011 2232 EST Problem: ALTERATION IN MOOD Goal: Desires Improved Mood Outcome: Ongoing Active Multi-Disciplinary problems: ALTERED THOUGHT PROCESSES [701916] (03/22/11) ALTERATION IN SLEEP [634998] (03/23/11) KNOWLEDGE DEFICIT [199525] (04/07/11) NUTRITION [326442] (04/07/11) RISK FOR INFECTION [481744] (04/07/11) GLYCEMIA IMBALANCE [804884] (04/07/11) ANXIETY [626974] (04/09/11) Ineffective Coping [457818] (04/09/11) SELF CARE DEFICIT [478574] (04/09/11) ALTERATION IN MOOD [385965] (04/09/11) Data: Patient napped at start of shift. Woke at 1700 and FS was 214. Spent time in milieu reading. Ate dinner in the TV room with peers. Appetite is fine. FS at HS was 188. Did request and receive PRN Ativan at 1715 and had PRN Percocet for pain 09/27 at 2030. Is on routine observations. Has next ECT tomorrow. Is NPO after midnight and will need SL placed in the morning. Action: Assessed for SI/HI and self harm. Provided 1:1. Encouraged groups and spending time out of room. Monitored for pain and anxiety and provided PRN medication as needed. Reminded of NPO status after midnight. Response: Patient denies SI/HI and self harm thoughts. Mood blunted and depressed. Affect restricted. Was out of his room all evening after napping until 1700. Spent time reading, watching TV and socializing with peers. Pleasant on all interactions. Requests to have Ambien at 2230. Currently still awake watching TV. Will continue to monitor. Zamzam Sher RN 04/27/2011 21:52 * Plan of Care - Tamika Cordero - 04/27/2011 1515 EST Problem: Discharge Planning Goal: Patient/Family Participate In Treatment And DC Plans Outcome: Ongoing Active Multi-Disciplinary problems: ALTERED THOUGHT PROCESSES [324909] (03/22/11) ALTERATION IN SLEEP [996881] (03/23/11) KNOWLEDGE DEFICIT [408312] (04/07/11) NUTRITION [560239] (04/07/11) RISK FOR INFECTION [784709] (04/07/11) GLYCEMIA IMBALANCE [629680] (04/07/11) ANXIETY [892860] (04/09/11) Ineffective Coping [213126] (04/09/11) SELF CARE DEFICIT [135878] (04/09/11) ALTERATION IN MOOD [196125] (04/09/11) Discharge Planning [971617] (04/27/11) Data: Will be NPO for ECT in the morning. Will need a maria isabel prior to leaving for his treatment. No benzos are to be given after 1900. Ate breakfast in the television room. Watched the television for a time and read. Finger stick this morning was 209 and at noon the finger stick was 66. Did eat lunch today. Used the light box for one-half an hour 0910 to 0940. Action: Assess for suicidal ideation. Keep NPO after midnight for ECT in the morning. Give no benzos after 1900. Will need a maria isabel prior to leaving for ECT. Offer one to one. Encourage groups. Utilize teaching opportunities. Assess for positive effects of ECT. Monitor for side effects of ECT. Explore plans for discharge. Response: Stated that he felt better since admission. Was less depressed. Admitted to being anxiousabout discharge toward the end of this week. Will be going back to his apartment initially, but will be looking for a new apartment in the [facility] area. Tamika Cordero RN 04/27/2011 11:08 1515 Did admit to feeling anxious about discharge and at the same time was looking forward to leaving. Was able to discuss the reasons for wanting to move near his family in [facility], especiallyto get away from the isolation. * Plan of Cyndie - Musa Yuen - 04/27/2011 0650 EST Problem: ALTERATION IN SLEEP Goal: Informs Staff If Unable To Sleep Outcome: Ongoing Data: pt awake at start of shift, watching TV in activity room. Asleep after 0300. Action: monitor on routine observations for safety. Response: pt remains safe on the unit. Slept about 3.5 hours this shift. MUSA YUEN RN 04/27/2011 6:45 * Plan of Care - Meghan Melchor RN - 04/26/2011 2211 EST Problem: ANXIETY Goal: Anxiety Is At Manageable Level Outcome: Ongoing Active Multi-Disciplinary problems: ALTERED THOUGHT PROCESSES [300548] (03/22/11) ALTERATION IN SLEEP [480200] (03/23/11) KNOWLEDGE DEFICIT [339682] (04/07/11) NUTRITION [865877] (04/07/11) RISK FOR INFECTION [519697] (04/07/11) GLYCEMIA IMBALANCE [556741] (04/07/11) ANXIETY [063141] (04/09/11) Ineffective Coping [645255] (04/09/11) SELF CARE DEFICIT [880153] (04/09/11) ALTERATION IN MOOD [167484] (04/09/11) Data: Denies SI/HI. Later this evening c/o right shoulder pain 10/27; requested/recieved prn percocet 1 tab at 2145. Pleasant, cooperative and easy to engage. Good mood; although expressed feeling like I've caught a cold feels tired and has some mild congestion. Finger stick before dinner 129; finger stick before bed 180. Action: Level III on routine observation. Psych shift assessment. Administered medication as scheduled. Supportive 1:1. Encouraged to not to nap during the day; encouraged to get some exercise and spend day hours in the milieu with peers. Requested/recieved prn ativan 0.5 mg at 1940. Response: Out of room for the majority of this shift. Ate dinner with peers. Watched TV. Walked a few laps around the unit for exercise. Compliant with scheduled medications. Will continue to monitor. MEGHAN MELCHOR RN 04/26/2011 22:05 * Plan of Care - Tamika Cordero - 04/26/2011 1513 EST Problem: NUTRITION Patient unable to self-regulate blood glucose level Goal: Blood Glucose Control Maintain plasma glucose levels within expected range. Intervention: Hyperglycemia Management Active Multi-Disciplinary problems: ALTERED THOUGHT PROCESSES [776542] (03/22/11) ALTERATION IN SLEEP [246262] (03/23/11) KNOWLEDGE DEFICIT [415799] (04/07/11) NUTRITION [883939] (04/07/11) RISK FOR INFECTION [479605] (04/07/11) GLYCEMIA IMBALANCE [933827] (04/07/11) ANXIETY [706047] (04/09/11) Ineffective Coping [273632] (04/09/11) SELF CARE DEFICIT [510970] (04/09/11) ALTERATION IN MOOD [149199] (04/09/11) Data: Finger stick was 118 at 0754 and 140 at 1153. Ate breakfast in the dining room with peers. Stated that he had a headache from ECT yesterday and received Motrin 600 mg po with relief. Stated that he did not expect any visitors today. Was looking forward to discharge possibly the end of next week. Stated that he had a cold: rhinitis and malaise. Rested in bed for the remainder of the day. Action: Assess for suicidal ideation. Monitor for side effects of ECT. Assess for positive results of ECT. Offer one to one. Encourage groups. Utilize teaching opportunities. Explore plans for discharge. Response: According to the patient he expected discharge toward the end of next week. While he was looking forward to discharge, the patient was able to acknowledge some anxiety about leaving. Seemedless depressed and did not voice suicidal ideation. Did not attend groups. Did not eat lunch. Tamika Cordero RN 04/26/2011 14:19 * Plan of Care - Elizabeth Prather RN - 04/26/2011 0654 EST Problem: ALTERATION IN SLEEP Goal: Reports Nightly Sleep, Duration And Quality Active Multi-Disciplinary problems: ALTERED THOUGHT PROCESSES [639737] (03/22/11) ALTERATION IN SLEEP [151125] (03/23/11) KNOWLEDGE DEFICIT [045171] (04/07/11) NUTRITION [132875] (04/07/11) RISK FOR INFECTION [238152] (04/07/11) GLYCEMIA IMBALANCE [165119] (04/07/11) ANXIETY [598091] (04/09/11) Ineffective Coping [446228] (04/09/11) SELF CARE DEFICIT [324656] (04/09/11) ALTERATION IN MOOD [618063] (04/09/11) Data: Pt watching TV when rec'd for care at 2330. Action: Pt monitored q30 mins as per routine obs. Provided with prn medication. Response: Pt up late watching tv on his own. Using nicotine replacement. Had repeat Ambien at 2350 per pt request. Pt went to bed/sleep at approx 0145. Pt slept approx 5.5 hrs this shift. Elizabeth Prather RN 04/26/2011 6:48 * Plan of Care - Zamzam Sher RN - 04/25/2011 2154 EST Problem: ALTERATION IN MOOD Goal: Desires Improved Mood Outcome: Ongoing Active Multi-Disciplinary problems: ALTERED THOUGHT PROCESSES [369934] (03/22/11) ALTERATION IN SLEEP [444763] (03/23/11) KNOWLEDGE DEFICIT [684107] (04/07/11) NUTRITION [203780] (04/07/11) RISK FOR INFECTION [968808] (04/07/11) GLYCEMIA IMBALANCE [290309] (04/07/11) ANXIETY [753829] (04/09/11) Ineffective Coping [495678] (04/09/11) SELF CARE DEFICIT [362823] (04/09/11) ALTERATION IN MOOD [531000] (04/09/11) Data: Patient attended afternoon spiritual care group. Spent time in milieu reading. Ate dinner in the TV room. Appetite is fair. Reports continued mild stomach upset and decreased appetite. Enjoyed pass earlier today with his daughter and granddaughter. FS at 1700 was 240 (after eating [employer] [place] on pass) and at HS was 188. Did request and receive PRN Ativan at 1900 and had PRN Percocet for pain /10 at 2030. Is on routine observations. Has next ECT Thursday. Action: Assessed for SI/HI and self harm. Provided 1:1. Encouraged groups and spending time out of room. Monitored for pain and anxiety and provided PRN medication as needed. Response: Patient denies SI/HI and self harm thoughts. Mood blunted and depressed. States today hasbeen a down day. Affect restricted. Reports ECT treatment went fine today. Is trying to stay awake rather than napping after treatment. Will start light box therapy tomorrow am although patient feels it may not make much of a difference. Mild stomach upset continues although did not request any PRN medication for his stomach. Was out of his room all evening reading, watching TV and socializing with peers. Pleasant on all interactions. Spoke of the of his on 1:1 and how his step children got half of the money that came from selling their home. Requests to have Ambien at 2230. Currliv ntly still awake watching TV. Will continue to monitor. Zamzam Sher RN 04/25/2011 21:52 * Plan of Care - Alice Fatima RN - 04/25/2011 1112 EST Problem: ALTERATION IN MOOD Goal: Desires Improved Energy Level Active Multi-Disciplinary problems: ALTERED THOUGHT PROCESSES [971152] (03/22/11) ALTERATION IN SLEEP [372110] (03/23/11) KNOWLEDGE DEFICIT [365301] (04/07/11) NUTRITION [911669] (04/07/11) RISK FOR INFECTION [524332] (04/07/11) GLYCEMIA IMBALANCE [284074] (04/07/11) ANXIETY [215979] (04/09/11) Ineffective Coping [291014] (04/09/11) SELF CARE DEFICIT [869138] (04/09/11) ALTERATION IN MOOD [020206] (04/09/11) Data: The patient has been calm and appropriate, ox3, without SI and without pain. Fingerstick 96 this morning prior to ECT. His treatment by PACU report was uneventful. He returned to the unit hungry and meal was ordered. He is eating in the dayroom now. He is aware that w/e passes will be ordered and that he may take them if daughter is available. He has no needs at present and will let me know as they arise. Action: Maintained on routine observations and provided safety in environment of care. Assessed pain and SI. Monitored behavior and functioning. Provided support and focused on pt's strengths. Administered medication and assessed efficacy and SE. Response: Pt out of room and doing well. Denies pain and SI. Alice Fatima RN 04/25/2011 11:04 Pt left on pass with daughter at 1400, has a 3 hour pass but will be back by 1530. Has passes over the weekend but doesn't think he will have family available to take him out. Please obtain shoes with laces, belt, 2 clippers and nasal hair removal tool upon return.o * Anesthesia Post-Eval - Justice Walsh CRNA - 04/25/2011 0951 EST Post Anesthesia Evaluation Note Date of Service: 04/25/2011 Shahnaz Santiago, a 60 y.o. year old male has received General Anesthesia He has been evaluated, assessed and discharged from anesthesia care with stable cardiorespiratory function and alert mental status. The last set of recorded vital signs and pain rating were reviewed: Temp: 37.3 ??C (99.1 ??F) (04/25/11914), Heart Rate: 71 BPM (04/25/11929), BP: 112/71 mmHg (04/25/11929), Resp: 15 (04/25/11929), SpO2: 100 % (04/25/11929), Pulse: 73 (04/25/11914),Numeric Pain Level (Scale 1-10): 0 Shahnaz Santiago participated in this evaluation unless otherwise noted. His pain, nausea and vomiting have been managed and his body temperature and fluid balance have been restored. Additional monitoring and assessment needs have been addressed. If present, any postoperative events are documented below. If the regional block for postoperative analgesia was intended to last greater than 48 hours, Shahnaz Santiago will be followed by the Acute Pain Service. JUSTICE WALSH CRNA 04/25/2011 9:51 * Anesthesia Pre-Eval - Justice Walsh CRNA - 04/25/2011 0904 EST Anesthesia ECT Pre-Evaluation Name: SHAHNAZ SANTIAGO : 1950 Date: 04/25/2011 Age: 60 y.o. No Known Allergies Patient Active Problem List Diagnoses ??? Diabetes mellitus ??? Major depression ??? CAD (coronary artery disease) ??? Nephrolithiasis No outpatient prescriptions have been marked as taking for the 03/22/11 encounter (Hospital Encounter) with Mary Jauregui MD. Vital Signs: BP 112/68 Pulse 82 Temp(Src) 36.6 ??C (97.9 ??F) (Tympanic) Resp 16 Ht 185.4 cm (72.99) Wt 99.973 kg (220 lb 6.4 oz) BMI 29.08 kg/m2 SpO2 100% Fasting Status Confirmed: Yes Airway Evaluation: Mallampati: 1 Mouth Opening: Normal Jaw Thrust: Normal T-M Distance: Normal Neck: ROM Normal Teeth: Normal ASA Physical Status: III Anesthesia Consent obtained on a separate document. See Anesthesia Consent form for details. Unless otherwise noted, follow standard anesthesia pre-operative protocol. JUSTICE WALSH CRNA 04/25/2011 * ECT Report - Sajan Stanford MD - 04/25/2011 0902 EST Psychiatry Procedure Note Title of Procedure: Electroconvulsive Therapy Date Performed: 04/25/2011 Time Performed: 904 Treatment Number: 9 Treatment Type: Index Treatment Visit: Inpatient Performed by: SAJAN Manzanares MD, personally performed this procedure in its entirety. Indications and/or Provisional Diagnosis: 296.34: Major Depressive Disorder, severe, with Psychoticfeatures Consent: Written consent was obtained from patient/guardian after being informed of the risks, benefits and alternatives. Time Out: A time-out was completed prior to procedure verifying correct patient, procedure, settings and site. Patient's identification was Verbal;Armband verified, the consent for Right Unilateral site and Yesthe setting of the ECT machine was verified by Luke Flores and Dr. Sajan Stanford Procedure Technique/Description of Procedure: Electrode Placement: Right Unilateral Dosing Protocol: 0.3 ms Pulse-width Protocol ([facility]) Pulse width: 0.3 msec Frequency: 50 Hz Duration: 5 sec Current: 800 mA Type of Anesthesia/Sedation/Doses Induction Agent: Dose: 70 mg Other Anesthetic: meth 75 Seizure Duration: Peripheral: 16 sec Electrical: 37 sec Unless otherwise noted, there was no blood loss, specimens removed, cultures obtained, or drains retained. Subjective: Feels okay. No complaints. No SI or psychotic symptoms. Objective: Looks better. Normal cog/motor/speech. Post Procedure Diagnosis and Findings: 296.34: Major Depressive Disorder, severe, with Psychotic features Complications: None Plan: Continue ECT. SAJAN STANFORD MD 04/25/2011 9:05 * Plan of Care - Abril Sheppard RN - 04/25/2011 0702 EST Problem: ALTERATION IN SLEEP Goal: Reports Nightly Sleep, Duration And Quality Intervention: Document duration, quality of sleep and reasons Active Multi-Disciplinary problems: ALTERED THOUGHT PROCESSES [128513] (03/22/11) ALTERATION IN SLEEP [747025] (03/23/11) KNOWLEDGE DEFICIT [091445] (04/07/11) NUTRITION [800355] (04/07/11) RISK FOR INFECTION [580029] (04/07/11) GLYCEMIA IMBALANCE [388429] (04/07/11) ANXIETY [416054] (04/09/11) Ineffective Coping [825186] (04/09/11) SELF CARE DEFICIT [219919] (04/09/11) ALTERATION IN MOOD [661696] (04/09/11) Data: Pt awake, watching TV at start of shift. NPO after MN for ECT in the morning. Pt requested his repeat dose of Ambien @ 0015. Contacted Dr. Loco, no extras d/t ECT in am. V/s 36.9 C, 121/78,112, 16, 96% RA. Pt displeased with not getting his add'l dose of Ambien, everyone else gives it to me, stated he would talk to his day nurse, this financial writer advised him to speak with his doctor and if the additional dose is to be given, a note specifically stating this could be added in the future.Pt in room 325 watching TV or reading until retiring around 2 am. Action: Routine observations. Supportive interactions, including some limit- setting. Paged on-call resident. Response: Pt remained NPO after midnight. Pt slept 5 hours thus far. IV nurse has inserted saline lock this am. Abril Sheppard RN 04/25/2011 6:52 * Plan of Care - Phoebe Epps RN - 04/24/2011 9481 EST Problem: ALTERATION IN MOOD Goal: Desires Improved Mood Outcome: Ongoing Data: Pt pleasant and cooperative with all interactions this shift. Pt engaged with 1:1, discussed the loss of his and how upsetting this was for him (becoming tearful). States that this, in addition to the suddenly resigning from job and uprooting from his home were some of the causes for hisstart of depression. Pt discussed that his daughter and grandchildren are positive support systems~although he worries about being a burden to his daughter (refering himself as another child). Pt expressed that his major concern is his financial situation, stating that if he didn't have to worry about money, his anxiety would be less. Pt also discussed that he is unsure about the effects of ECT, stating that he is feeling better but that he started ECT the same time one of his medications was discontinued, making him unsure which is having the positive benefits. Action: Pt assessed for pain and SI/SH. Offered supportive 1:1, encouraged to research programs which may help him financially after discharge. Meds per order, glucose monitored, vital signs monitored. Groups encouraged. Pt encouraged to get OOB earlier in the day to help promote proper sleep hygiene. Routine obs. NPO after midnight d/t ECT in am. Response: Pt denies pain and SI/SH. Reports chronic depression has slightly reduced. Pt napped beginning of shift~reports feeling a little under the weather. Pt ate dinner in milieu and socialized with peers. Was present in evening group but read book quietly. Later became engaged with long 1:1 with RN. Most of the rest of evening spent watching tv in milieu. Remains slightly blunted, appropriate with conversations. Good eye contact, good appetite. Pt appears preoccupied with current stressors. Med compliant, remains safe on unit. PHOEBE EPPS RN 04/24/2011 21:04 * Plan of Care - Alice Fatima RN - 04/24/2011 1138 EST Problem: ALTERATION IN MOOD Goal: Desires Improved Energy Level Active Multi-Disciplinary problems: ALTERED THOUGHT PROCESSES [733228] (03/22/11) ALTERATION IN SLEEP [782497] (03/23/11) KNOWLEDGE DEFICIT [505619] (04/07/11) NUTRITION [503254] (04/07/11) RISK FOR INFECTION [789722] (04/07/11) GLYCEMIA IMBALANCE [379212] (04/07/11) ANXIETY [829527] (04/09/11) Ineffective Coping [037107] (04/09/11) SELF CARE DEFICIT [591940] (04/09/11) ALTERATION IN MOOD [236680] (04/09/11) Data: The patient was up and eating breakfast at start of shift. He denied pain and SI. He said he has been going to groups and doing art. He informs me that he will have ECT tomorrow and be NPO tonight. He said he felt tired and would probably go back to bed. He did go back to bed and is sleeping now. Action: Maintained on routine observations and provided safety in environment of care. Assessed pain and SI. Will continue to monitor behavior and functioning. Provide support and focus on pt's strengths. Administered medication and assessed efficacy and SE. Response: Pt. has no complaints, things are good right now. Denies pain and SI. Alice Fatima RN 04/24/2011 10:54 Finger sticks 126 and 100. * Plan of Care - Abril Sheppard RN - 04/24/2011 0640 EST Problem: ALTERATION IN SLEEP Goal: Reports Nightly Sleep, Duration And Quality Intervention: Document duration, quality of sleep and reasons Active Multi-Disciplinary problems: ALTERED THOUGHT PROCESSES [448290] (03/22/11) ALTERATION IN SLEEP [248347] (03/23/11) KNOWLEDGE DEFICIT [094945] (04/07/11) NUTRITION [824455] (04/07/11) RISK FOR INFECTION [614315] (04/07/11) GLYCEMIA IMBALANCE [423637] (04/07/11) ANXIETY [904762] (04/09/11) Ineffective Coping [591182] (04/09/11) SELF CARE DEFICIT [578803] (04/09/11) ALTERATION IN MOOD [656005] (04/09/11) Data: Pt out in milieu, watching TV by self at start of shift. Zheng affect than previously noted,spontaneous smiles & sense of humor also noted, no SI voiced. Pt also coloring in a mosaic bookfamily had brought in, stated it was good way to pass time or relax, well, it's just fun to be honest. Pt requested repeat dose of Ambien & reported 4/10 headache at that time that has been nag ging me all day & pt also endorsed some cold-like symptoms. Action: Administer prn Ambien & nicotine @ 0019 & ibuprofen @ 0023. Perform routine observations. Supportive interactions as needed. Assessments & documentation completed. Response: Pt remained safe on unit. Documented asleep @ 0227. No awakenings noted. Pt has slept 4+ hours thus far. Abril Sheppard RN 04/24/2011 6:32 * Plan of Care - Fadumo Ventura RN - 04/23/2011 9837 EST Active Multi-Disciplinary problems: ALTERED THOUGHT PROCESSES [059389] (03/22/11) ALTERATION IN SLEEP [650762] (03/23/11) KNOWLEDGE DEFICIT [844353] (04/07/11) NUTRITION [233695] (04/07/11) RISK FOR INFECTION [740543] (04/07/11) GLYCEMIA IMBALANCE [572498] (04/07/11) ANXIETY [445720] (04/09/11) Ineffective Coping [997996] (04/09/11) SELF CARE DEFICIT [114730] (04/09/11) ALTERATION IN MOOD [311423] (04/09/11) Data: Napping at start of shift. Woken up for vital signs. Stated he felt like he is coming down with something. Complained of generalized body aches - rated discomfort 5/10. Denies SI/HI. Action: Medicated with Ibuprofen 600 mg po. Pt also requested and received Ativan 0.5 mg. Brief 1:1encounters. Response: Pt pleasant and cooperative. Receptive to 1:1. Ate dinner with peers. Appetite good. Pt states no pain relief with Ibuprofen. Percocet offered, but pt declined at this time. Stated he would wait and take some at HS. Fadumo Ventura, NAHUN 04/23/2011 18:56 * Plan of Care - Tamika Cordero - 04/23/2011 1500 EST Problem: ANXIETY Goal: Anxiety Is At Manageable Level Intervention: Encourage participation in care Active Multi-Disciplinary problems: ALTERED THOUGHT PROCESSES [527223] (03/22/11) ALTERATION IN SLEEP [273309] (03/23/11) KNOWLEDGE DEFICIT [662375] (04/07/11) NUTRITION [693311] (04/07/11) RISK FOR INFECTION [668806] (04/07/11) GLYCEMIA IMBALANCE [657197] (04/07/11) ANXIETY [008549] (04/09/11) Ineffective Coping [668090] (04/09/11) SELF CARE DEFICIT [668828] (04/09/11) ALTERATION IN MOOD [877767] (04/09/11) Data: Was npo for ECT this morning and had his maria isabel in place. Was escorted to [facility] for his treatment by the MHT and was returned to the unit after recovery in the PACU. The maria isabel was removed in PACU. His finger stick at 0819 was 132 and was 230 shortly after eating breakfast. Did not eat lunch.Visited with his daughter and granddaughter until 1300. According to the daughter she will bring another PEN of Sariah on Thursday. Denied any side effects of ECT. Stated that he felt tired after ECT and did not feel up to going on a 2 hour pass with his family. Was out on the unit until after his family left. Action: Assess for suicidal ideation. Was NPO for ECT this morning. Was escorted to the PACU and returned to the unit via wheelchair by the MHT. Offer one to one. Encourage groups when able. Assess for positive effects of ECT. Monitor for side effects of ECT. Response: Seemed more alert and energetic. Mood continued to be more even. Denied side effects of ECT. Did not verbalize suicidal ideation. Tamika Cordero RN 04/23/2011 14:23 * Anesthesia Pre-Stephen Pichardo, DATA ANALYTICS ARCHITECT - 04/23/2011 0851 EST Anesthesia ECT Pre-Evaluation Name: SHAHNAZ SANTIAGO : 1950 Date: 04/23/2011 Age: 60 y.o. No Known Allergies Patient Active Problem List Diagnoses ??? Diabetes mellitus ??? Major depression ??? CAD (coronary artery disease) ??? Nephrolithiasis No outpatient prescriptions have been marked as taking for the 03/22/11 encounter (Hospital Encounter) with Mary Jauregui MD. Vital Signs: BP 99/63 Pulse 77 Temp(Src) 36.3 ??C (97.3 ??F) (Tympanic) Resp 18 Ht 185.4 cm (72.99) Wt 99.973 kg (220 lb 6.4 oz) BMI 29.08 kg/m2 SpO2 98% Fasting Status Confirmed: Yes Airway Evaluation: Mallampati: 1 Mouth Opening: Normal Jaw Thrust: Normal T-M Distance: Normal Neck: ROM Normal Teeth: Normal ASA Physical Status: III Anesthesia Consent obtained on a separate document. See Anesthesia Consent form for details. Unless otherwise noted, follow standard anesthesia pre-operative protocol. STEPHEN Leal LUCILALeniJNO 04/23/2011 * ECT Report - Juwan Walter MD - 04/23/2011 0838 EST Psychiatry Procedure Note Title of Procedure: Electroconvulsive Therapy Date Performed: 04/23/2011 Time Performed: 836 Treatment Number: 8 Treatment Type: Index Treatment Visit: Inpatient Performed by: JUWAN Manzanares MD, personally performed this procedure in its entirety. Indications and/or Provisional Diagnosis: 296.34: Major Depressive Disorder, severe, with Psychoticfeatures Consent: Written consent was obtained from patient/guardian after being informed of the risks, benefits and alternatives. Time Out: A time-out was completed prior to procedure verifying correct patient, procedure, settings and site. Patient's identification was Verbal;Armband verified, the consent for Right Unilateral site and Yesthe setting of the ECT machine was verified by NAHUN Baeza and Dr. Juwan Walter Procedure Technique/Description of Procedure: Electrode Placement: Right Unilateral Dosing Protocol: 0.3 ms Pulse-width Protocol ([facility]) Pulse width: 0.3 msec Frequency: 50 Hz Duration: 5 sec Current: 800 mA Type of Anesthesia/Sedation/Doses Induction Agent: Dose: 70 mg Other Anesthetic: meth Seizure Duration: Peripheral: 23sec Electrical: 32 sec Unless otherwise noted, there was no blood loss, specimens removed, cultures obtained, or drains retained. Subjective: C/o developing viral sydrome, no fever, mood trending better, no cog concerns, is less psychomotor retarded Objective: on 04/17 Madrs 17 , initial was 43, showing response, Post Procedure Diagnosis and Findings: 296.34: Major Depressive Disorder, severe, with Psychotic features Complications: None Plan: Cont RUL 3 x week JUWAN WALTER MD 04/23/2011 8:45 * Plan of Care - Mega Deleon RN - 04/23/2011 0631 EST Problem: ALTERATION IN SLEEP Goal: Reports Nightly Sleep, Duration And Quality Outcome: Ongoing Active Multi-Disciplinary problems: ALTERED THOUGHT PROCESSES [986350] (03/22/11) ALTERATION IN SLEEP [112808] (03/23/11) KNOWLEDGE DEFICIT [134514] (04/07/11) NUTRITION [037235] (04/07/11) RISK FOR INFECTION [472951] (04/07/11) GLYCEMIA IMBALANCE [159509] (04/07/11) ANXIETY [427466] (04/09/11) Ineffective Coping [334858] (04/09/11) SELF CARE DEFICIT [762952] (04/09/11) ALTERATION IN MOOD [128134] (04/09/11) Data: Patient was awake at onset of shift talking with male peers in the kitchen and watching television. No complaints of SI/HI/Pain. Patient requested nicotine and second prn Ambien at 00:00. Patient talked at length of how he feels fortunate for his admission, what a terrible state he was in upon arriving to the unit, and how he feels he has improved due to his thinking being at baseline. Patient says he is excited to move closer to his daughter and thinks he may need some financial assistance in the future. Patient went to bed at 02:00am and slept a total of 5.5 hours this shift. Action: Maintained on routine observation for safety. Response: Patient remained safe this shift. MEGA DELEON RN 04/23/2011 6:26 * Plan of Care - Zamzam Sher RN - 04/22/2011 2234 EST Problem: ALTERATION IN MOOD Goal: Desires Improved Mood Outcome: Ongoing Active Multi-Disciplinary problems: ALTERED THOUGHT PROCESSES [653328] (03/22/11) ALTERATION IN SLEEP [504131] (03/23/11) KNOWLEDGE DEFICIT [778296] (04/07/11) NUTRITION [936010] (04/07/11) RISK FOR INFECTION [598323] (04/07/11) GLYCEMIA IMBALANCE [304589] (04/07/11) ANXIETY [612474] (04/09/11) Ineffective Coping [661363] (04/09/11) SELF CARE DEFICIT [856117] (04/09/11) ALTERATION IN MOOD [227558] (04/09/11) Data: Patient napped at the start of the shift. Spent time in milieu with peers. Watched TV. Ate dinner in the TV room. Appetite is fair. Reports mild stomach upset and reports frequent BMs today. Requested and received Mylanta. FS at 1700 is 80 and at HS was 238. Did request and receive PRN Ativanat 1855 and had PRN Percocet for pain at 2030. Is on routine observations. Has next ECT tomorrow. Wi ll be NPO after midnight and needs SL in the am. Action: Assessed for SI/HI and self harm. Provided 1:1. Encouraged groups and spending time out of room. Monitored for pain and anxiety and provided PRN medication as needed. Reminded patient of NPO status after midnight. Response: Patient denies SI/HI and self harm thoughts. Mood blunted and slightly irritable after confusion of thinking he had ECT today. Affect restricted. Mild stomach upset and had Mylanta at 1710 with minimal relief. Requested PRN Ativan just before 1900. Was out of his room all evening watchingTV and socializing with peers. Did not attend groups this shift. Pleasant on all interactions. Has pass available for tomorrow after ECT to go out with his daughter. Requests to have Ambien at 2230. Currently still awake watching TV. Will continue to monitor. Zamzam Sher RN 04/22/2011 21:35 * Plan of Care - Mega Deleon RN - 04/22/2011 1994 EST Problem: ALTERATION IN SLEEP Goal: Reports Nightly Sleep, Duration And Quality Outcome: Ongoing Active Multi-Disciplinary problems: ALTERED THOUGHT PROCESSES [806104] (03/22/11) ALTERATION IN SLEEP [533366] (03/23/11) KNOWLEDGE DEFICIT [552566] (04/07/11) NUTRITION [731559] (04/07/11) RISK FOR INFECTION [355079] (04/07/11) GLYCEMIA IMBALANCE [025000] (04/07/11) ANXIETY [103212] (04/09/11) Ineffective Coping [416738] (04/09/11) SELF CARE DEFICIT [542707] (04/09/11) ALTERATION IN MOOD [349078] (04/09/11) Data: Patient was awake at onset of shift, watching television. Requested his second dose of Ambienwith nicotine at 00:03. At this time patient said he did not feel well today due to an upset stomach and chills/sweats. Says he will see how he feels when the IV nurse comes in the morning and then determine if he is able to have ECT. Patient denies SI/HI. Pleasant, calm and cooperative. Action: Supportive 1:1 time offered. Maintained on routine observation for safety. Provided with prn medications per request. IV nurse placed saline lock this morning for ECT. Response: Patient remained safe this shift. Patient appeared to sleep 5 hours this shift after going to bed at 02:15. MEGA DELEON RN 04/22/2011 3:14 * Plan of Care - Phoebe Epps RN - 04/21/2011 6011 EST Problem: SELF CARE DEFICIT Goal: Goes To And Eats Meals Independently Outcome: Met This Shift Data: Pt pleasant and cooperative with all interactions this shift. Noted to be napping in bed until dinner arrived. Pt reports increased lethargy today which is why he remained in bed most of the day. Pt was questioning whether or not he will be having ECT tomorrow d/t holiday schedule change. Action: Pt assessed for pain and SI/SH. Blood sugar and behaviors monitored. Offered supportive 1:1. Encouraged to spend time out of room and socialize in milieu. Pt encouraged to stick to normal sleep patterns to promote sleep hygiene. Scheduled and PRNs per order. Behaviors monitored. Routine obs. Response: Pt reports moderate Right shoulder pain~PRNs given and effective. Pt has good affect, appropriate behaviors, good eye contact. Fair appetite~Pt reports often not having a taste for food therefore having decreased appetite. Pt spent much of shift in milieu watching tv and socializing with other male peers. Pt scheduled for ECT in am, NPO after midnight. Med compliant. Remains safe on unit. PHOEBE EPPS RN 04/21/2011 21:28 * Plan of Care - Tamika Cordero - 04/21/2011 1434 EST Problem: ANXIETY Goal: Anxiety Is At Manageable Level Intervention: Assess coping mechanisms Active Multi-Disciplinary problems: ALTERED THOUGHT PROCESSES [643507] (03/22/11) ALTERATION IN SLEEP [162865] (03/23/11) KNOWLEDGE DEFICIT [525530] (04/07/11) NUTRITION [424881] (04/07/11) RISK FOR INFECTION [961293] (04/07/11) GLYCEMIA IMBALANCE [262369] (04/07/11) ANXIETY [607359] (04/09/11) Ineffective Coping [618233] (04/09/11) SELF CARE DEFICIT [472651] (04/09/11) ALTERATION IN MOOD [788214] (04/09/11) Data: Ate breakfast in the dining room, but did not eat lunch. Stated that he was not hungry. Finger stick at 0815 was 137 and at 1217 was 127. Did not attend groups. Spent the rest of the day in bed. Did not verbalize suicidal ideation. May be having ECT in the morning. Dr. Fernandes was contacted about ECT. At present there were no orders and the schedule was not available. Action: Assess for suicidal ideation. Offer one to one. Encourage groups. Keep NPO after midnight in the event that the patient will have ECT. No benzos are to be given after 1900. Will need a maria isabel prior to leaving for his treatment in the morning if he will be receiving ECT. Response: Was social with peers when he was up for breakfast. Remained depressed but did not verbalize suicidal ideation. Tamika Cordero RN 04/21/2011 14:21 1522 Remained in bed for most of the day. * Plan of Care - Ladan Saldivar LPN - 04/21/2011 0604 EST Active Multi-Disciplinary problems: ALTERED THOUGHT PROCESSES [165430] (03/22/11) ALTERATION IN SLEEP [850363] (03/23/11) KNOWLEDGE DEFICIT [176886] (04/07/11) NUTRITION [391533] (04/07/11) RISK FOR INFECTION [537559] (04/07/11) GLYCEMIA IMBALANCE [457030] (04/07/11) ANXIETY [193503] (04/09/11) Ineffective Coping [905964] (04/09/11) SELF CARE DEFICIT [568619] (04/09/11) ALTERATION IN MOOD [921261] (04/09/11) Data: Pt up in tv room at start of shift, req and rec ambien 10 mg at 23:45 and watched tv till 01:30 then went to bed and appears to be sleeping. Action: Remains on routine observations. Response: Sleeping at present, slept concepción 5 hours. Ladan Saldivar LPN 04/21/2011 6:04 * Plan of Care - Ervin Osorio RN - 04/20/2011 1428 EST Problem: ALTERATION IN MOOD Goal: Desires Improved Energy Level Outcome: Ongoing Active Multi-Disciplinary problems: ALTERED THOUGHT PROCESSES [593363] (03/22/11) ALTERATION IN SLEEP [561056] (03/23/11) KNOWLEDGE DEFICIT [881743] (04/07/11) NUTRITION [494246] (04/07/11) RISK FOR INFECTION [205647] (04/07/11) GLYCEMIA IMBALANCE [547571] (04/07/11) ANXIETY [390434] (04/09/11) Ineffective Coping [345856] (04/09/11) SELF CARE DEFICIT [871704] (04/09/11) ALTERATION IN MOOD [480684] (04/09/11) Data: Pt ate breakfast in DR. Was calm and cooperative and med compliant. FS at 0830 was 174. Requested ibuprofen 600 mg for 5/10 rt shoulder pain, received at 0900. Pt asleep 2 hrs later. FS at 12 noon was 106. Did not eat lunch. Napped for several hours in afternoon. Action: Routine observation. Theraputic interaction. Response: Pt didn't sleep well at noc . Was isolated most of the shift when he wasn't napping. Ervin Osorio RN 04/20/2011 14:20 * Plan of Cyndie - Ladan Saldivar LPN - 04/20/2011 0637 EST Active Multi-Disciplinary problems: ALTERED THOUGHT PROCESSES [387400] (03/22/11) ALTERATION IN SLEEP [966870] (03/23/11) KNOWLEDGE DEFICIT [419978] (04/07/11) NUTRITION [892840] (04/07/11) RISK FOR INFECTION [373491] (04/07/11) GLYCEMIA IMBALANCE [834942] (04/07/11) ANXIETY [827896] (04/09/11) Ineffective Coping [690527] (04/09/11) SELF CARE DEFICIT [810009] (04/09/11) ALTERATION IN MOOD [713582] (04/09/11) Data: Pt up in tv room at start of shift until 01:30 then went to bed till 03:30. Up snacking and watching tv untio 04:30 then back to bed. Action: Remains on routine observations Response: kSlept concepción 4 hours. And is sleeping at present. Ladan Saldivar LPN 04/20/2011 6:38 * Plan of Cyndie - Zamzam Sher RN - 04/19/2011 2227 EST Problem: ALTERATION IN MOOD Goal: Desires Improved Mood Outcome: Ongoing Active Multi-Disciplinary problems: ALTERED THOUGHT PROCESSES [957360] (03/22/11) ALTERATION IN SLEEP [906924] (03/23/11) KNOWLEDGE DEFICIT [247243] (04/07/11) NUTRITION [176882] (04/07/11) RISK FOR INFECTION [858137] (04/07/11) GLYCEMIA IMBALANCE [560518] (04/07/11) ANXIETY [994002] (04/09/11) Ineffective Coping [673434] (04/09/11) SELF CARE DEFICIT [480120] (04/09/11) ALTERATION IN MOOD [678345] (04/09/11) Data: Patient napped at the start of the shift. Spent time in milieu with peers. Watched TV. Ate dinner in the TV room. Appetite is good. FS at 1700 is 240 and at HS was 191. Did request and receive PRN Ativan at 1730 and 2115 and had PRN Percocet for pain at 2030. Is on routine observations. Action: Assessed for SI/HI and self harm. Provided 1:1. Encouraged groups and spending time out of room. Monitored for pain and anxiety and provided PRN medication as needed. Response: Patient denies SI/HI and self harm thoughts. Mood blunted, affect restricted. Requested PRN Ativan soon after waking up from a nap and did not appear anxious at that time but reported mild anxiety. Was out of his room all evening watching TV and socializing with peers. No groups this shift. Pleasant on all interactions. Has passes available for each day this weekend. Requests to have Ambien at 2230. Currently still awake watching TV. Will continue to monitor. Zamzam Sher RN 04/19/2011 22:05 * Plan of Care - Alice Fatima RN - 04/19/2011 1301 EST Problem: ANXIETY Goal: Anxiety Is At Manageable Level Intervention: Provide calm accepting environment Active Multi-Disciplinary problems: ALTERED THOUGHT PROCESSES [607382] (03/22/11) ALTERATION IN SLEEP [363785] (03/23/11) KNOWLEDGE DEFICIT [585570] (04/07/11) NUTRITION [150990] (04/07/11) RISK FOR INFECTION [326219] (04/07/11) GLYCEMIA IMBALANCE [165360] (04/07/11) ANXIETY [963725] (04/09/11) Ineffective Coping [767759] (04/09/11) SELF CARE DEFICIT [161654] (04/09/11) ALTERATION IN MOOD [555661] (04/09/11) Data: The patient has been out of his room and without complaints of any kind. He denies SI. Fingersticks 141 and 114. No requests for PRN medication. Action: Maintained on routine observations and provided safety in environment of care. Assessed pain, thoughts of suicide and mood. Monitored behavior and functioning. Provided support and focused onpt's strengths. Administered medication and assessed efficacy and SE. Response: Uneventful shift thus far, no problems noted. Will continue to support and monitor. Alice Fatima RN 04/19/2011 12:54 Pt slept 3 hours last night, sleeping much of the day shift. * Plan of Care - Cyndie Redman. - 04/19/2011 0633 EST Problem: ALTERATION IN SLEEP Goal: Reports Nightly Sleep, Duration And Quality Intervention: Document duration, quality of sleep and reasons Active Multi-Disciplinary problems: ALTERED THOUGHT PROCESSES [026634] (03/22/11) ALTERATION IN SLEEP [468528] (03/23/11) KNOWLEDGE DEFICIT [642067] (04/07/11) NUTRITION [709104] (04/07/11) RISK FOR INFECTION [359863] (04/07/11) GLYCEMIA IMBALANCE [339227] (04/07/11) ANXIETY [110335] (04/09/11) Ineffective Coping [524697] (04/09/11) SELF CARE DEFICIT [041485] (04/09/11) ALTERATION IN MOOD [841419] (04/09/11) Data: pt awake in activity room at beginning of the acupressure therapist. He requested and received repeat dose of ambien at 2345 and was awake until 0200. He was awake again from 0415 until 0530 and watched tv. Pt had no complaints. Pleasant on interactions. Action: monitored on routine observations Response: pt sleeping. No signs of distress. Will continue to monitor. Cyndie Redman RN 04/19/2011 6:30 * Plan of Care - Christina Torres - 04/18/2011 2155 EST Problem: ANXIETY Goal: Anxiety Is At Manageable Level Outcome: Met This Shift Data: Pt in hospital gown, napping or watching tv. Ate meal in milieu, friendly with other pt's, pleasant and willing to talk about ECT, progress in depression tx. Stated he felt a little blank, dull after ECT but denied pain r/t tx. Denied SI, HI. Stated still struggling with feelings of guilt about things he could have done better in the past and also with grieving the loss of his and all she did for him. Stated great relief from the feelings of unreality and extreme anxiety he had upon admission, thinks they may have been related to taking perphenazine, or the relief may be attributed to the effects of ECT. Requested prn pain medication generalized pain 10/27 and lorazepam for anx iety.Fingerstick 191 at dinner;147 at bedtime. Action: Monitored on routine checks for safety. Psych shift assessment.Offered 1:1 support. Gave medications. Encouraged groups and activities. Response: Stated moderate + effects from prn medications. Calm, remains safe on unit. Feels progress is being made in recovery. CHRISTINA TORRES RN 04/18/2011 21:41 * Plan of [facility] Tamika Cordero Juli - 04/18/2011 1522 EST Problem: NUTRITION Patient unable to self-regulate blood glucose level Goal: Blood Glucose Control Maintain plasma glucose levels within expected range. Intervention: Hypoglycemia Management Active Multi-Disciplinary problems: ALTERED THOUGHT PROCESSES [451282] (03/22/11) ALTERATION IN SLEEP [838381] (03/23/11) KNOWLEDGE DEFICIT [030838] (04/07/11) NUTRITION [500773] (04/07/11) RISK FOR INFECTION [420264] (04/07/11) GLYCEMIA IMBALANCE [931544] (04/07/11) ANXIETY [671858] (04/09/11) Ineffective Coping [301925] (04/09/11) SELF CARE DEFICIT [850071] (04/09/11) ALTERATION IN MOOD [914884] (04/09/11) Data: Was npo for ECT this morning. Maria Isabel was not inserted prior to going for treatment, Because the IVRN was not able to insert it. Was ecorted to [facility] by COMPUTER TECHNOLOGIST. Was returned to the floor by the COMPUTER TECHNOLOGIST via wheelchair. Denied any problems with side effects of ECT. Had received Toradol in [facility] to prevent&/or reduce a headache. Was pleased with his morning finger stick of 132. Took his morning medications and ate breakfast. Rested in bed for the rest of the morning. Action: Do finger sticks prior to meals. Assess for suicidal ideation. Offer one to one. Encourage groups when able. Utilize teaching opportunities. Monitor for side effects of ECT. Assess for positive effects of ECT. Explore plans for discharge. Response: Denied side effects of ECT. Affect was a little brighter after his treatment and the irritability and mood swings have not been noticeable. Ate lunch later in the afternoon. Did not attend groups. Stated that he expected to be hospitalized for at least 10 more days. Was less isolated today. Had refused his finger stick at noon And agreed to have the FS done later. Tamika Cordero RN 04/18/2011 11:46 * Anesthesia Post-Annieal - Josue Martinez ([facility]) - 04/18/2011 1001 EST Post Anesthesia Evaluation Note Date of Service: 04/18/2011 Shahnaz Santiago, a 60 y.o. year old male has received General Anesthesia He has been evaluated, assessed and discharged from anesthesia care with stable cardiorespiratory function and alert mental status. The last set of recorded vital signs and pain rating were reviewed: Temp: 36.5 ??C (97.7 ??F) (04/18/11914), Heart Rate: 72 BPM (04/18/11923), BP: 115/70 mmHg (04/18/11923), Resp: 10 (04/18/11923), SpO2: 97 % (04/18/11923), Pulse: 76 (04/18/11 0802),NumericPain Level (Scale 1-10): 0 (denies) Shahnaz Santiago participated in this evaluation unless otherwise noted. His pain, nausea and vomiting have been managed and his body temperature and fluid balance have been restored. Additional monitoring and assessment needs have been addressed. If present, any postoperative events are documented below. The patient has made a satisfactory and uncomplicated recovery from general anesthesia for an ECT procedure. He is stable for discharge to the inpatient unit. JOSUE MARTINEZ MD (ANES) 04/18/2011 10:01 * Anesthesia Pre-Eval - Josue Martinez) - 04/18/2011828 EST Anesthesia ECT Pre-Evaluation Name: SHAHNAZ SANTIAGO : 1950 Date: 04/18/2011 Age: 60 y.o. No Known Allergies Patient Active Problem List Diagnoses ??? Diabetes mellitus ??? Major depression ??? CAD (coronary artery disease) ??? Nephrolithiasis No outpatient prescriptions have been marked as taking for the 03/22/11 encounter (Hospital Encounter) with Mary Jauregui MD. Vital Signs: BP 140/83 Pulse 76 Temp(Src) 35.4 ??C (95.7 ??F) (Tympanic) Resp 16 Ht 185.4 cm (72.99) Wt 99.973 kg (220 lb 6.4 oz) BMI 29.08 kg/m2 SpO2 98% Fasting Status Confirmed: Yes Airway Evaluation: Mallampati: 1 Mouth Opening: Normal Jaw Thrust: Normal T-M Distance: Normal Neck: ROM Normal Teeth: Full Dentures ASA Physical Status: III Anesthesia Consent obtained on a separate document. See Anesthesia Consent form for details. Unless otherwise noted, follow standard anesthesia pre-operative protocol. JOSUE MARTINEZ MD (ANES) 04/18/2011 * ECT Report - Juwan Walter MD - 04/18/2011823 EST Psychiatry Procedure Note Title of Procedure: Electroconvulsive Therapy Date Performed: 04/18/2011 Time Performed: 822 Treatment Number: 7 Treatment Type: Index Treatment Visit: Inpatient Performed by: JUWAN Manzanares MD, personally performed this procedure in its entirety. Indications and/or Provisional Diagnosis: 296.34: Major Depressive Disorder, severe, with Psychoticfeatures Consent: Written consent was obtained from patient/guardian after being informed of the risks, benefits and alternatives. Time Out: A time-out was completed prior to procedure verifying correct patient, procedure, settings and site. Patient's identification was Verbal;Armband verified, the consent for Right Unilateral site and Yesthe setting of the ECT machine was verified by Luke Flores and Dr. Juwan Walter Procedure Technique/Description of Procedure: Electrode Placement: Right Unilateral Dosing Protocol: 0.3 ms Pulse-width Protocol ([facility]) Pulse width: 0.3 msec Frequency: 50 Hz Duration: 5 sec Current: 800 mA Type of Anesthesia/Sedation/Doses Induction Agent: Dose: 70 mg Other Anesthetic: meth Seizure Duration: Peripheral: 19 sec Electrical: 33 sec Unless otherwise noted, there was no blood loss, specimens removed, cultures obtained, or drains retained. Subjective: Doing better, reports more clarity attributes it to coming off perphenazine, C/o mildheadache Objective: Less psychomotor retarded, more verbal, madrs 17 Post Procedure Diagnosis and Findings: 296.34: Major Depressive Disorder, severe, with Psychotic features Complications: None Plan: Cont RUL 3 x week JUWAN WALTER MD 04/18/2011 8:28 * Plan of Care - Cyndie Redman - 04/18/2011 0640 EST Problem: ALTERATION IN SLEEP Goal: Reports Nightly Sleep, Duration And Quality Intervention: Document duration, quality of sleep and reasons Active Multi-Disciplinary problems: ALTERED THOUGHT PROCESSES [034063] (03/22/11) ALTERATION IN SLEEP [598466] (03/23/11) KNOWLEDGE DEFICIT [031566] (04/07/11) NUTRITION [647878] (04/07/11) RISK FOR INFECTION [672009] (04/07/11) GLYCEMIA IMBALANCE [897386] (04/07/11) ANXIETY [772577] (04/09/11) Ineffective Coping [801587] (04/09/11) SELF CARE DEFICIT [750154] (04/09/11) ALTERATION IN MOOD [594782] (04/09/11) Data: pt awake at 2330 watching tv. At 2353, pt requested and received his repeat dose of ambien. He continued to watch tv after that, and work on a word puzzle. He was in bed and asleep shortly after 0130. He was awake again at 0415 and went out to [facility] to watch tv. He went back to bed and was asleep shortly after 0500. Pleasant on interactions. Voiced no complaints. NPO after midnight. Action: monitored on routine observations Response: pt sleeping, no signs of distress. Will continue to monitor. Cyndie Redman RN 04/18/2011 6:36 * Plan of Care - Dahlia Hernández. - 04/17/2011 2009 EST Active Multi-Disciplinary problems: ALTERED THOUGHT PROCESSES [943347] (03/22/11) ALTERATION IN SLEEP [645328] (03/23/11) KNOWLEDGE DEFICIT [182495] (04/07/11) NUTRITION [637926] (04/07/11) RISK FOR INFECTION [070270] (04/07/11) GLYCEMIA IMBALANCE [952851] (04/07/11) ANXIETY [064750] (04/09/11) Ineffective Coping [680207] (04/09/11) SELF CARE DEFICIT [099157] (04/09/11) ALTERATION IN MOOD [407806] (04/09/11) Data: Pt socialized with peers all afternoon' pleasant and agreeable, exchanging anecdotes with peers. Took PeRCoCet I, For pain of 8 @ 1700Jarrell as hnzepaml mg Po PRN for anxiety.. Pt engaged in art work after supper, talked of his plan for Discharge in a week to 10 days. Action: Plan for Ect Thursday, ordered saline lock for 6 Am, N PO after midnight, no benzo after 2000. Response:pt seems relaxed and comfortable. Dahlia Hernández RN 04/17/2011 20:12 * Plan of Care - Tamika Cordero - 04/17/2011 1531 EST Problem: GLYCEMIA IMBALANCE Goal: Patient???s Continuum Of Care Needs Are Met Intervention: Encourage participation in diabetes management Active Multi-Disciplinary problems: ALTERED THOUGHT PROCESSES [697870] (03/22/11) ALTERATION IN SLEEP [939809] (03/23/11) KNOWLEDGE DEFICIT [491278] (04/07/11) NUTRITION [237107] (04/07/11) RISK FOR INFECTION [839518] (04/07/11) GLYCEMIA IMBALANCE [989649] (04/07/11) ANXIETY [804791] (04/09/11) Ineffective Coping [500604] (04/09/11) SELF CARE DEFICIT [866089] (04/09/11) ALTERATION IN MOOD [125364] (04/09/11) Data: Ate breakfast in the dining room with peers. Did not attend groups. Remained in bed most of the day. Will be npo for ECT in the morning. Will need a maria isabel prior to leaving for treatment in the morning. No benzos are to be given after 1900. Action: Assess for suicidal ideation. NPO after midnight for ECT in the morning. No benzos after 1900. IVRN to insert maria isabel prior to leaving for the [facility]. Monitor for side effects of ECT. Assess forpositive effects of ECT. Offer one to one. Encourage groups. Utilize teaching opportunities. Fingersticks to be done prior to meals. Response: Ate breakfast in the dining room with peers. Did not express suicidal ideation. Denied side effects of ECT. Mood remained depressed but no irritability. Remained isolated in his room most of the day. Tamika Cordero RN 04/17/2011 14:09 * Plan of Care - Ladan Saldivar LPN - 04/17/2011 0611 EST Active Multi-Disciplinary problems: ALTERED THOUGHT PROCESSES [043283] (03/22/11) ALTERATION IN SLEEP [446857] (03/23/11) KNOWLEDGE DEFICIT [411985] (04/07/11) NUTRITION [819616] (04/07/11) RISK FOR INFECTION [275967] (04/07/11) GLYCEMIA IMBALANCE [133628] (04/07/11) ANXIETY [581027] (04/09/11) Ineffective Coping [777181] (04/09/11) SELF CARE DEFICIT [693435] (04/09/11) ALTERATION IN MOOD [712148] (04/09/11) Data: Pt req and received Ambien at 23:44 and watched tv until 01:30. Went to bed and slept till 03then up snacking and watching tv with peer. Given Ativan at pts request at 03:59. Went to bed at 04:30 and appears to be asleep. Action: Remains on routine observations. Response: Sleeping at present, slept concepción 4 hours, Ladan Saldivar LPN 04/17/2011 6:11 * Plan of [facility] - Phuong Salmeron, RN - 04/16/2011 8052 EST Problem: ALTERATION IN MOOD Goal: Desires Improved Mood Intervention: Staff observations of behavior Active Multi-Disciplinary problems: ALTERED THOUGHT PROCESSES [747373] (03/22/11) ALTERATION IN SLEEP [238207] (03/23/11) KNOWLEDGE DEFICIT [554422] (04/07/11) NUTRITION [683853] (04/07/11) RISK FOR INFECTION [812800] (04/07/11) GLYCEMIA IMBALANCE [920088] (04/07/11) ANXIETY [194183] (04/09/11) Ineffective Coping [494649] (04/09/11) SELF CARE DEFICIT [955505] (04/09/11) ALTERATION IN MOOD [851877] (04/09/11) Data: pt seemed to be in a reasonably good mood this evening. Polite on all contacts, and appropriate. FS's = ac 184, and hs 257 ( HO informed re hs fs). C/o of renteria and rt shoulder ache and requested and rec'd percocet 1 tab each time. Knew he was able to get less ativan but requested and rec'd it w/ hs meds. Napped at beg of shift but up before too long. Watched TV ate dinner and snacked on ice cream. VSS. Started byetta today and pt self administers w/ nsg present. No SI/SH thoughts verbalized. Requested his hs ambien be given at 2215 (done). Action: freq brief supportive contacts, assessments, meds, enc groups Response: certainly improved from adm, next ect Fri Phuong Salmeron RN 04/16/2011 23:12 * Plan of Care - Ervin Osorio RN - 04/16/2011 1232 EST Problem: KNOWLEDGE DEFICIT Goal: Knowledge - Diabetes Management Patient will verbalize knowledge about diabetes mellitus and its control. Outcome: Ongoing Active Multi-Disciplinary problems: ALTERED THOUGHT PROCESSES [067487] (03/22/11) ALTERATION IN SLEEP [969111] (03/23/11) KNOWLEDGE DEFICIT [221015] (04/07/11) NUTRITION [999633] (04/07/11) RISK FOR INFECTION [350825] (04/07/11) GLYCEMIA IMBALANCE [633733] (04/07/11) ANXIETY [118098] (04/09/11) Ineffective Coping [959197] (04/09/11) SELF CARE DEFICIT [182177] (04/09/11) ALTERATION IN MOOD [271230] (04/09/11) Data: Pt to ECT this am and back at 1030. FS on return was 240. Received breakfast tray and had am meds. Also requested ativan 1mg at that time. FS 147 this am before ECT. Pt injected own insulin into Lt abdomen. Action: Routine observation. Monitor blood sugar and reinforce diabetic teaching. Response: Pt was able to instruct RN regarding how his insulin pen works ( which is different from the insulin pen the hospital uses), knew the correct dosage of insulin. Ervin Osorio RN 04/16/2011 12:22 * ECT Report - Leni Dang MD - 04/16/2011 0939 EST Psychiatry Procedure Note Title of Procedure: Electroconvulsive Therapy Date Performed: 04/16/2011 Time Performed: 954 Treatment Number: 6 Treatment Type: Index Treatment Visit: Inpatient Performed by: Leni Manzanares MD, personally performed this procedure in its entirety. Indications and/or Provisional Diagnosis: 296.33: Major Depressive Disorder, severe, without Psychotic features Consent: Written consent was obtained from patient/guardian after being informed of the risks, benefits and alternatives. Time Out: A time-out was completed prior to procedure verifying correct patient, procedure, settings and site. Patient's identification was Verbal;Armband verified, the consent for Right Unilateral site and Yesthe setting of the ECT machine was verified by NAHUN Santiago and Dr. Shaheen Dang Procedure Technique/Description of Procedure: Electrode Placement: Right Unilateral Dosing Protocol: 0.3 ms Pulse-width Protocol (Formerly [facility]) Pulse width: 0.3 msec Frequency: 50 Hz Duration: 5 sec Current: 800 mA Type of Anesthesia/Sedation/Doses Induction Agent: Dose: 70 mg Other Anesthetic: methohex Seizure Duration: Peripheral: 15 sec Electrical: Indeterminate, but fully resolved by 37 sec Unless otherwise noted, there was no blood loss, specimens removed, cultures obtained, or drains retained. Subjective: Nauseated after last ECT, no other problems. States mood is OK but just tired. Objective: Affect constricted, not severely so. Linear and logical; many questions about course of care, meds w/ anesthesia, etc. Post Procedure Diagnosis and Findings: 296.33: Major Depressive Disorder, severe, without Psychoticfeatures Complications: None Plan: Continue ECT. This seizure was of marginal adequacy, but others have been more robust. Leni Dang MD 04/16/2011 9:44 * Anesthesia Pre-Eval - Mer Espinosa - 04/16/2011 0938 EST Anesthesia ECT Pre-Evaluation Name: SHAHNAZ SANTIAGO : 1950 Date: 04/16/2011 Age: 60 y.o. No Known Allergies Patient Active Problem List Diagnoses ??? Diabetes mellitus ??? Major depression ??? CAD (coronary artery disease) ??? Nephrolithiasis No outpatient prescriptions have been marked as taking for the 03/22/11 encounter (Hospital Encounter) with Mary Jauregui MD. Vital Signs: BP 104/68 Pulse 89 Temp(Src) 36 ??C (96.8 ??F) (Tympanic) Resp 16 Ht 185.4 cm (72.99) Wt99.973 kg (220 lb 6.4 oz) BMI 29.08 kg/m2 SpO2 99% Fasting Status Confirmed: Yes Airway Evaluation: Mallampati: 1 Mouth Opening: Normal Jaw Thrust: Normal T-M Distance: Normal Neck: ROM Normal Teeth: Full Dentures ASA Physical Status: III Anesthesia Consent obtained on a separate document. See Anesthesia Consent form for details. Unless otherwise noted, follow standard anesthesia pre-operative protocol. MER ESPINOSA MD 04/16/2011 * Plan of Care - Matt Coats RN - 04/16/2011 0633 EST Problem: ALTERATION IN SLEEP Goal: Reports Nightly Sleep, Duration And Quality Outcome: Ongoing Active Multi-Disciplinary problems: ALTERED THOUGHT PROCESSES [187029] (03/22/11) ALTERATION IN SLEEP [549888] (03/23/11) KNOWLEDGE DEFICIT [474773] (04/07/11) NUTRITION [856346] (04/07/11) RISK FOR INFECTION [757437] (04/07/11) GLYCEMIA IMBALANCE [704914] (04/07/11) ANXIETY [880920] (04/09/11) Ineffective Coping [394324] (04/09/11) SELF CARE DEFICIT [786994] (04/09/11) ALTERATION IN MOOD [773484] (04/09/11) Data: Requested repeat dose of PRN sleeping medication at about 00:00. Remained in the activity room chatting with other patients and watching TV until after 02:00. Asleep since 02:30. Action: Administer medications as ordered and monitor rest and sleep. Response: Patient did not meet daily sleep goal during this shift. Matt Coats RN 04/16/2011 6:31 * Plan of Care - Amanda Horn - 04/15/2011 2225 EST Problem: ANXIETY Goal: Anxiety Is At Manageable Level Outcome: Ongoing Problem: ANXIETY Goal: Anxiety Is At Manageable Level Outcome: Ongoing Active Multi-Disciplinary problems: ALTERED THOUGHT PROCESSES [159487] (03/22/11) ALTERATION IN SLEEP [865397] (03/23/11) KNOWLEDGE DEFICIT [907226] (04/07/11) NUTRITION [667069] (04/07/11) RISK FOR INFECTION [142035] (04/07/11) GLYCEMIA IMBALANCE [735009] (04/07/11) ANXIETY [588659] (04/09/11) Ineffective Coping [279523] (04/09/11) SELF CARE DEFICIT [230218] (04/09/11) ALTERATION IN MOOD [534354] (04/09/11) Data: Patient in bed at beginning of shift. Pleasant and cooperative. Woke up for 1700 Byetta injection. One of the two pens in drawer is cracked. Med compliant and cooperative about NPO order for tomorrow mornings ECT. Pt requested all HS meds except his ambien at 1900 and has been in tv room [employer] or working on his word puzzle book. His FS at 1700 was 235. Pt reported feeling clammy and hot around 2100. FS at 2100 [id number]. Action: RN continues to monitor pt for changes in mood or behavior during shift. Response: Pt currently reports GI upset. Waiting for second dose of ambien before going to bed and reports feeling a bit anxious about tomorrows ECT. Amanda Horn RN 04/15/2011 21:55 * Plan of Care - Tamika Cordero - 04/15/2011 1513 EST Problem: NUTRITION Patient unable to self-regulate blood glucose level Goal: Blood Glucose Control Maintain plasma glucose levels within expected range. Intervention: Hyperglycemia Management Active Multi-Disciplinary problems: ALTERED THOUGHT PROCESSES [453190] (03/22/11) ALTERATION IN SLEEP [304084] (03/23/11) KNOWLEDGE DEFICIT [037663] (04/07/11) NUTRITION [523882] (04/07/11) RISK FOR INFECTION [408058] (04/07/11) GLYCEMIA IMBALANCE [010215] (04/07/11) ANXIETY [198249] (04/09/11) Ineffective Coping [870194] (04/09/11) SELF CARE DEFICIT [272291] (04/09/11) ALTERATION IN MOOD [734410] (04/09/11) Data: The patient's finger stick at 0742 was 212 and he received 5 units of Aspart insulin with breakfast. The finger stick at 1150 was 169 and he received 2 units if Aspart insulin with lunch. Did admit to having a low mood in part due to the , Being in the hospital and being a week since his last ECT. Did enjoy his pass with his family Yesterday. Admitted to sleeping a lot to pass the time. The Byetta Pens were sent to the pharmacy for identification. The Aspart orders have been discontinued and will start the Byetta at dinner timethis evening. Ate his meals in the television room and stayed in the room most of the day resting on his bed. Affect was sad and restricted but no irritability was displayed. Action: Assess for suicidal ideation. Offer one to one. Encourage groups. Utilize teaching opportunities. Will be NPO after midnight for ECT in the morning. Maria Isabel will be inserted by the IVRN priorto leaving for ECT. The ECT treatment was discussed with the patient and was reminded not to eat after midnight. No benzos are to be administered after 1900. Response: Remained depressed but did not verbalize suicidal ideation. Did request Ativan for anxiety and Percocet 1 tab for left shoulder pain and received the medication at 1225. Remained isolated in room most of the day. Tamika Cordero RN 04/15/2011 14:22 * Plan of Care - Ladan Saldivar LPN - 04/15/2011 0619 EST Active Multi-Disciplinary problems: ALTERED THOUGHT PROCESSES [036188] (03/22/11) ALTERATION IN SLEEP [200434] (03/23/11) KNOWLEDGE DEFICIT [904394] (04/07/11) NUTRITION [925638] (04/07/11) RISK FOR INFECTION [370384] (04/07/11) GLYCEMIA IMBALANCE [876346] (04/07/11) ANXIETY [119214] (04/09/11) Ineffective Coping [247432] (04/09/11) SELF CARE DEFICIT [189978] (04/09/11) ALTERATION IN MOOD [792613] (04/09/11) Data: Pt req and received Ambien 10mg at 23:40. Informed pt I would like to repeat fs at 02 and he watched tv Till 02:30 . FS was 108 and pt went an had snack. Action: Remains on routine observations. Response: Slept 4 hours. Ladan Saldivar LPN 04/15/2011 6:19 * Plan of Care - Arthur Valenzuela RN - 04/14/2011 6417 EST Problem: ALTERED THOUGHT PROCESSES Goal: Desires Improvement In Ability To Think & Concentrate Data: Patient in bed at beginning of the shift. Arose to get ready for pass with daughter. Showeredand groomed. Daughter arrived late due to traffic troubles but patient handled this setback with noissues. Patient's energy low but patient is more engaged with staff and peers. Broader affect, morespontaneous speech and willing to have more prolonged conversation. Blood sugar 206 before patient left for pass. Patient reported increased anxiety and right shoulder pain. Action: Patient assessed for mood, behavior, safety, pain. 1:1 support provided. Medications given as ordered. Insulin held at dinner time due to patient going for pass. Patient assessed prior to going on pass, and sent for pass. Additional needs provided. Response: Patient went on pass, returned after about three hours. Reported pass going well, went [employer]. Reported indigestion after returning. Patient's mood and behavior when returning was stable. In milieu with peers, moderately engaged. Requested and received nighttime ativan. Nighttime blood sugar was 367. Resident was paged and requested to give insulin on same schedule as mealtime. Patient was given 11 units of insulin. Patient was polite and gracious upon interaction. Will continue to monitor and assess. ARTHUR VALENZUELA RN 04/14/2011 23:03 * Plan of Care - Abril Sheppard RN - 04/14/2011 9096 EST Problem: SELF CARE DEFICIT Goal: Increase Group Attendance Intervention: Monitor & document participation Active Multi-Disciplinary problems: ALTERED THOUGHT PROCESSES [480160] (03/22/11) ALTERATION IN SLEEP [994388] (03/23/11) KNOWLEDGE DEFICIT [242799] (04/07/11) NUTRITION [422781] (04/07/11) RISK FOR INFECTION [415598] (04/07/11) GLYCEMIA IMBALANCE [191140] (04/07/11) ANXIETY [403654] (04/09/11) Ineffective Coping [484095] (04/09/11) SELF CARE DEFICIT [016816] (04/09/11) ALTERATION IN MOOD [876556] (04/09/11) Data: Pt isolative to his room most of shift. FS in am 143 (2 units Novolog administered), noon 238. Pt independently went to dining room for breakfast after awakening. Pt requested Ativan 1 mg afteram meds, when asked what his anxiety symptoms were, I don't know, this financial writer responded that somepeople experience muscle tension & social discomfort, pt responded yeah, I have that. Denied pain. Pt declined eating lunch, declined experiencing anxiety at that time, endorsing just wanting to sleep. Pt endorsed feeling low when asked to describe mood. Denied any further needs except wanting to know when it is 3 pm. Action: Administered scheduled & requested prn medications. Assessed mood, affect, pain, monitored blood sugar. Encouraged time out of bed & room. Supportive interactions. Contact on-call resident. Response: Per javier Love insulin held d/t pt not eating. Pt declined attending groups or spendingtime in milieu. Pt spent most of day in bed, endorsed depressed feelings. Abril Sheppard, NAHUN 04/14/2011 14:34 Black leather bag with over-shoulder strap found in pt's room, labeled & placed in dirty utility room with pt's other belongings. * Plan of [facility] - Ladan Saldivar LPN - 04/14/2011 0640 EST Active Multi-Disciplinary problems: ALTERED THOUGHT PROCESSES [301744] (03/22/11) ALTERATION IN SLEEP [932035] (03/23/11) KNOWLEDGE DEFICIT [972267] (04/07/11) NUTRITION [652179] (04/07/11) RISK FOR INFECTION [419703] (04/07/11) GLYCEMIA IMBALANCE [837004] (04/07/11) ANXIETY [557151] (04/09/11) Ineffective Coping [367027] (04/09/11) SELF CARE DEFICIT [288169] (04/09/11) ALTERATION IN MOOD [473517] (04/09/11) Data: Pt req and received Ambien 10 mg at 23:41 went to bed at 01:30. Action: Remains on routine observations. Response: Slept six hours and is asleep at present Ladan Saldivar LPN 04/14/2011 6:40 * Plan of Musa Casarez - 04/13/2011 1900 EST Problem: ANXIETY Goal: Anxiety Is At Manageable Level Outcome: Ongoing Active Multi-Disciplinary problems: ALTERED THOUGHT PROCESSES [473401] (03/22/11) ALTERATION IN SLEEP [643930] (03/23/11) KNOWLEDGE DEFICIT [644645] (04/07/11) NUTRITION [273183] (04/07/11) RISK FOR INFECTION [699545] (04/07/11) GLYCEMIA IMBALANCE [314338] (04/07/11) ANXIETY [192498] (04/09/11) Ineffective Coping [953269] (04/09/11) SELF CARE DEFICIT [969608] (04/09/11) ALTERATION IN MOOD [363337] (04/09/11) 6925-3951 Data: Resting in bed at start of evening shift; up for dinner independently. Pleasant, cooperative and easy to engage. Finger stick before dinner 254; received 7 units of aspart with meal. Appears depressed; stated this doesn't feel like nicole. Action: Level III on routine observation. Psych shift assessment. Supportive 1:1. Administered medications as scheduled. Encouraged to get out of bed and spend time with peers in the milieu. Requested/recieved prn percocet and prn ativan 1 mg at 1716. Response: Out of room for dinner; ate with peers. Reading in activity room currently, will continueto monitor. MEGHAN MELCHOR RN 04/13/2011 18:50 [id number] Assumed care of pt. Pleasant and cooperative in activity room watching TV with peers. Finger Stick at hs was 237. Took hs meds and PRN Ativan 1mg and Percocet 1tab for 7/10 right shoulder pain, with hs meds. Monitored on routine observations. Pt remains safe on the unit. Scheduled Ambien 10mg givenaround 2230 and pt would like second Ambien dose around 2330. * Plan of Care - Edie Contreras RN - 04/13/2011 1404 EST Problem: ANXIETY Goal: Anxiety Is At Manageable Level Outcome: Ongoing 0800 FS : 164. Pt. received 2u aspart. Pt. requested and received 1 mg ativan @ 0815 for anxiety which he thought was due to the holidays. Pt. reported 5/10 right shoulder pain @ 0830, declined intervention stating I will ask for my prn later. Pt. ate breakfast in milieu. FS @ 1130: 211, pt. received 5 un aspart. Pt. awakened for lunch by RN, ate in milieu. Spent rest of shift in bed in darkened room. Action: Routine safety monitoring. Assessed SI, pain. Offered scheduled medication. Psych/PE assessment. FS am/noon. Response: Pt. Depressed, Isolative to self and room. Pt. declined taking p/c from daughter Nkechi mid morning. Pt.'s daughter spoke with this RN, tearful and confused as to why pt. refused to speak with her. Provided nursing update on pt. including pt.s expression of anxiety and depression related to holiday. Pt. stated I just didn't feel like talking to anyone, declined multiple offers of 1:1, but stated he would call his daughter this afternoon. He stated he tried to call the # twice but its out of service, offered to retry daughter's number and pt. declined. Pt. did not request prn pain medication, reported moderate effect from ativan for anxiety. EDIE CONTRERAS RN 04/13/2011 7:45 * Plan of Care - Matt Coats RN - 04/13/2011 0622 EST Problem: ALTERATION IN SLEEP Goal: Reports Nightly Sleep, Duration And Quality Outcome: Ongoing Active Multi-Disciplinary problems: ALTERED THOUGHT PROCESSES [645038] (03/22/11) ALTERATION IN SLEEP [067052] (03/23/11) KNOWLEDGE DEFICIT [554516] (04/07/11) NUTRITION [297259] (04/07/11) RISK FOR INFECTION [380553] (04/07/11) GLYCEMIA IMBALANCE [297260] (04/07/11) ANXIETY [941842] (04/09/11) Ineffective Coping [069104] (04/09/11) SELF CARE DEFICIT [889094] (04/09/11) ALTERATION IN MOOD [617654] (04/09/11) Data: Requested repeat dose of Ambien at 00:00. Went to bed at 01:00 and was found asleep on all checks thereafter. Action: Monitor rest and sleep, administer medications as ordered and provide emotional support. Response: Met minimal daily sleep goals during this shift. Matt Coats RN 04/13/2011 6:19 * Plan of Care - Meghan Melchor RN - 04/12/20112038 EST Problem: KNOWLEDGE DEFICIT Goal: Knowledge - Diabetes Management Patient will verbalize knowledge about diabetes mellitus and its control. Outcome: Ongoing Active Multi-Disciplinary problems: ALTERED THOUGHT PROCESSES [587665] (03/22/11) ALTERATION IN SLEEP [486535] (03/23/11) KNOWLEDGE DEFICIT [268089] (04/07/11) NUTRITION [388161] (04/07/11) RISK FOR INFECTION [516069] (04/07/11) GLYCEMIA IMBALANCE [063379] (04/07/11) ANXIETY [447367] (04/09/11) Ineffective Coping [551172] (04/09/11) SELF CARE DEFICIT [499738] (04/09/11) ALTERATION IN MOOD [126366] (04/09/11) Data: Napping at the start of this shift. Expressed feeling more depressed today; spent much of theday in bed. With encouragement came out of bedroom this evening and has been social in the milieu with peers since dinner. Good appetite. Action: Level III on routine observation. Psych shift assessment. Administered medications as scheduled. Supportive 1:1. FS before dinner 223 (recieved 5 units aspart); HS FS 208. Requested/recieved prn ativan 1 mg and prn percocet at 1754. Requested/recieved prn percocet at 2105. Response: Spent the majority of this shift in the milieu; currently watching TV with peers. Will continue to monitor. MEGHAN MELCHOR RN 04/12/2011 20:25 * Plan of Care - Tamika Cordero - 04/12/2011 1437 EST Problem: ANXIETY Goal: Anxiety Is At Manageable Level Intervention: Encourage verbalization of concerns/fears Active Multi-Disciplinary problems: ALTERED THOUGHT PROCESSES [871583] (03/22/11) ALTERATION IN SLEEP [142830] (03/23/11) KNOWLEDGE DEFICIT [748116] (04/07/11) NUTRITION [325907] (04/07/11) RISK FOR INFECTION [923127] (04/07/11) GLYCEMIA IMBALANCE [368562] (04/07/11) ANXIETY [510725] (04/09/11) Ineffective Coping [942522] (04/09/11) SELF CARE DEFICIT [338081] (04/09/11) ALTERATION IN MOOD [432303] (04/09/11) Data: Finger sticks were 173 at 0735 and received 2 units of Aspart Insulin with breakfast and 183 at 1154 and received 3 units of Aspart Insulin with lunch. Mood was subdued today. Stated that he was tired. Ate his meals in the television room and spent most of the day in bed. According to the patient he was not expecting visitors today. Action: Assess for suicidal ideation. Encourage participation in groups. Offer one to one. Utilize teaching opportunities. Encourage participation in diabetic regime. Response: Was more compliant with his diet today. Administered his insulin with RN supervision prior to eating meals. Did not verbalize suicidal ideation. Mood was somber and depressed. Had missed ECT on Thursday due to snacking during the nighttime. Tamika Cordero RN 04/12/2011 14:17 * Plan of Care - Matt Coats RN - 04/12/2011 0637 EST Problem: ALTERATION IN SLEEP Goal: Reports Nightly Sleep, Duration And Quality Outcome: Ongoing Active Multi-Disciplinary problems: ALTERED THOUGHT PROCESSES [101628] (03/22/11) ALTERATION IN SLEEP [126848] (03/23/11) KNOWLEDGE DEFICIT [115168] (04/07/11) NUTRITION [872559] (04/07/11) RISK FOR INFECTION [266540] (04/07/11) GLYCEMIA IMBALANCE [643233] (04/07/11) ANXIETY [046925] (04/09/11) Ineffective Coping [096706] (04/09/11) SELF CARE DEFICIT [317486] (04/09/11) ALTERATION IN MOOD [967267] (04/09/11) Data: Asked for his second dose of Ambien at about 00:00 along with a nicotine inhaler. Stayed up quietly snacking and watching television alone until 01:30. Then patient retired to bed. Action: Provide emotional support and monitor rest and sleep. Response: May meet daily sleep goal if sleeps past 08:00. Matt Coats RN 04/12/2011 6:29 * Plan of Care - Meghan Melchor RN - 04/11/2011 9074 EST Problem: NUTRITION Patient unable to self-regulate blood glucose level Goal: Blood Glucose Control Maintain plasma glucose levels within expected range. Outcome: Ongoing Active Multi-Disciplinary problems: ALTERED THOUGHT PROCESSES [899588] (03/22/11) ALTERATION IN SLEEP [262395] (03/23/11) KNOWLEDGE DEFICIT [392080] (04/07/11) NUTRITION [979256] (04/07/11) RISK FOR INFECTION [460934] (04/07/11) GLYCEMIA IMBALANCE [608776] (04/07/11) ANXIETY [163354] (04/09/11) Ineffective Coping [746218] (04/09/11) SELF CARE DEFICIT [140688] (04/09/11) ALTERATION IN MOOD [152123] (04/09/11) Data: Napping at start of shift until about 1710. Complaints of right shoulder pain 10/27; little relief from prn percocet. C/o heartburn I've had heartburn since I ate those sausages this morning; resident housing liaison notified; new order for pepcid 20 mg was received pt was grateful. Pt has been pleasant and easy to engage. Action: Level III on routine observation. Psych shift assessment. Supportive 1:1. Administered medications as scheduled. FS before dinner 164; FS before bed 242. Requested/recieved prn ativan 1 mg and prn percocet at 1715; requested received prn hs ativan 1 mg and prn percocet at 2140. Response: Out in the milieu the majority of this evening; watching TV and socializing with peers. Complaint with scheduled medications. Will continue to monitor. MEGHAN MELCHOR RN 04/11/2011 22:28 * Plan of Care - David Bustillo - 04/11/2011 0647 EST Problem: ALTERATION IN SLEEP Goal: Informs Staff If Unable To Sleep Outcome: Ongoing Active Multi-Disciplinary problems: ALTERED THOUGHT PROCESSES [353916] (03/22/11) ALTERATION IN SLEEP [232993] (03/23/11) KNOWLEDGE DEFICIT [840715] (04/07/11) NUTRITION [484652] (04/07/11) RISK FOR INFECTION [833199] (04/07/11) GLYCEMIA IMBALANCE [536503] (04/07/11) ANXIETY [821755] (04/09/11) Ineffective Coping [230237] (04/09/11) SELF CARE DEFICIT [159218] (04/09/11) ALTERATION IN MOOD [926617] (04/09/11) Data: Pt awake at start of shift and out in milieu. At 0015 pt was observed by staff to be eating ice cream, a cookie, and other snack foods. This financial writer spoke with pt about remaining NPO for his ECTprocedure in the morning. Pt stated that he would not eat anything more but was observed eating until 0030. Resident was called and made aware. Pt asleep by 0130 and slept for 5 hours. Upon awakening pt was found to be eating ice chips. He explained that his mouth was dry and that he would choke down in the OR unless he moistened his mouth. Pt was again reminded of his NPO status. Action: Monitored for safety. Response: Pt remains safe on the unit. DAVID BUSTILLO RN 04/11/2011 6:39 * Plan of Care - Rema Whitehead RN - 04/10/2011 215 EST Problem: ALTERED THOUGHT PROCESSES Goal: Desires Improvement In Ability To Think & Concentrate Outcome: Ongoing Active Multi-Disciplinary problems: ALTERED THOUGHT PROCESSES [313299] (03/22/11) ALTERATION IN SLEEP [523899] (03/23/11) KNOWLEDGE DEFICIT [395002] (04/07/11) NUTRITION [346076] (04/07/11) RISK FOR INFECTION [840146] (04/07/11) GLYCEMIA IMBALANCE [199786] (04/07/11) ANXIETY [484302] (04/09/11) Ineffective Coping [395648] (04/09/11) SELF CARE DEFICIT [799787] (04/09/11) ALTERATION IN MOOD [782238] (04/09/11) Data: Pt reports his mood is depressed. He denies SI and cannot see improvement in his status. He is calm, pleasant and non-confrontational. He spent most of the evening coloring mandalas and socializing with peers in the milieu. He tells me that he believes the antipsychotic the team here took himoff made him psychotic. FS at dinner was 226, 5 U aspart administered with meal. Pt requested ativan prn 1mg at 1709 and 1851. He also requested percocette for 7/10 R shoulder pain at 1710 and 2109. Pain comes down to a 4/10 with medication. Speech and thought clear and organized. Pt feels discouraged by having to be in the hospital. Action: monitor for safety, monitor blood glucose Response: stable Rema Whitehead RN 04/10/2011 21:43 * Plan of Care - Rema Garcia RN - 04/10/2011 1347 EST Problem: Ineffective Coping Goal: Verbalizes Improved Well Being Outcome: Ongoing Active Multi-Disciplinary problems: ALTERED THOUGHT PROCESSES [360237] (03/22/11) ALTERATION IN SLEEP [061518] (03/23/11) KNOWLEDGE DEFICIT [607869] (04/07/11) NUTRITION [320960] (04/07/11) RISK FOR INFECTION [943472] (04/07/11) GLYCEMIA IMBALANCE [628297] (04/07/11) ANXIETY [347709] (04/09/11) Ineffective Coping [669855] (04/09/11) SELF CARE DEFICIT [989951] (04/09/11) ALTERATION IN MOOD [004486] (04/09/11) Data: Pt denies SI/HI, A/V/H, and states he does have some pain in his shoulder in which he denied the need for medication. Pt was pleasant and engaging in conversation with financial writer. Pt discussed his diabetes and how he manages it at home. Pt also discussed the things his used to do to help himwith the diabetes before she . Pt became tearful when talking about her. Pt smiled and was appropriate. Pt was able to laugh and joke at times with financial writer. When asked if pt felt less depressed than when he came in pt stated I guess I do at times but then other times it doesn't feel any different. Pt is hopeful that the more ect treatments he gets the more results he will notice. Pt ate meal in the kitchen but otherwise stayed in his room most of the day. Pt stated this am to financial writer that he felt tired and was noted to be sleeping after him breakfast and morning medications. Pt with goodappetite and hygiene Action: Pt given continuous supportive nursing care, 1;1, and medication per MD order. Pt encouraged to attend groups. Will continue to monitor. Response: Pt remains in room resting at this time. Pt continues to remain pleasant and cooperative REMA GARCIA RN 04/10/2011 13:39 * Anesthesia Post-Pro - Yamile Henderson CRNA - 04/10/2011 0857 EST Post Anesthesia Evaluation Note Date of Service: 04/10/2011 Shahnaz Santiago, a 60 y.o. year old male has received General Anesthesia He has been evaluated, assessed and discharged from anesthesia care with stable cardiorespiratory function and alert mental status. The last set of recorded vital signs and pain rating were reviewed: Temp: 35.5 ??C (95.9 ??F) (04/10/11754), BP: 121/66 mmHg (04/10/11754), Resp: 20 (04/10/11754), SpO2: 98 % (04/10/11754), Pulse: 85 (04/10/11754),Numeric Pain Level (Scale 1-10): 0 (sleeping) Shahnaz Santiago participated in this evaluation unless otherwise noted. His pain, nausea and vomiting have been managed and his body temperature and fluid balance have been restored. Additional monitoring and assessment needs have been addressed. If present, any postoperative events are documented below. If the regional block for postoperative analgesia was intended to last greater than 48 hours, Shahnaz Santiago will be followed by the Acute Pain Service. Yamile Henderson CRNA 04/10/2011 8:57 * Plan of Care - David Bustillo - 04/10/2011 0633 EST Problem: ALTERATION IN SLEEP Goal: Informs Staff If Unable To Sleep Outcome: Ongoing Active Multi-Disciplinary problems: ALTERED THOUGHT PROCESSES [998779] (03/22/11) ALTERATION IN SLEEP [254079] (03/23/11) KNOWLEDGE DEFICIT [888725] (04/07/11) NUTRITION [319024] (04/07/11) RISK FOR INFECTION [339479] (04/07/11) GLYCEMIA IMBALANCE [802182] (04/07/11) ANXIETY [650134] (04/09/11) Ineffective Coping [121617] (04/09/11) SELF CARE DEFICIT [370412] (04/09/11) ALTERATION IN MOOD [308499] (04/09/11) Data: Pt requested and received repeat dose of Ambien at 2349. Pt was very pleasant and cooperativeduring interaction and appeared to be in a very good mood. Asleep after 0130. Awake x 1 through thenight for an hour. Otherwise, slept well with no complaints. Action: Monitored for safety. Response: Pt remains safe on the unit. Slept 4 hours and continues to sleep at end of NOC shift. DAVID BUSTILLO RN 04/10/2011 6:29 * Plan of Care - Meghan Melchor RN - 04/09/2011 211 EST Problem: ALTERED THOUGHT PROCESSES Goal: Desires Improvement In Ability To Think & Concentrate Outcome: Met This Shift Active Multi-Disciplinary problems: ALTERED THOUGHT PROCESSES [209935] (03/22/11) ALTERATION IN SLEEP [654366] (03/23/11) KNOWLEDGE DEFICIT [305285] (04/07/11) NUTRITION [154427] (04/07/11) RISK FOR INFECTION [373211] (04/07/11) GLYCEMIA IMBALANCE [849287] (04/07/11) ANXIETY [484101] (04/09/11) Ineffective Coping [472506] (04/09/11) SELF CARE DEFICIT [976398] (04/09/11) ALTERATION IN MOOD [689489] (04/09/11) Data: Napping at start of shift; woke just before dinner. Denies SI/HI. C/o right shoulder pain 10/27 this shift; no relief from prn percocet. Pleasant; cooperative and easy to engage. Ate dinner in DR with peers. Action: Level III on routine observation. Psych shift assessment. Administered medication as scheduled. Supportive 1:1. FS before dinner 168; 295 at HS. Requested/recieved prn percocet and prn ativan1 mg at 1730. Requested prn percocet and prn HS ativan at 2030. Response: Social with peers; spent the majority of the evening with peers in the activity room watching TV and working. Complaint with scheduled medications. Will continue to monitor. MEGHAN MELCHOR RN 04/09/2011 21:12 * Plan of Care - Tamika Cordero - 04/09/2011 1522 EST Problem: Ineffective Coping Goal: Verbalizes Ways To Manage Anxiety Outcome: Ongoing Active Multi-Disciplinary problems: ALTERED THOUGHT PROCESSES [349910] (03/22/11) ALTERATION IN SLEEP [870099] (03/23/11) KNOWLEDGE DEFICIT [820576] (04/07/11) NUTRITION [629857] (04/07/11) RISK FOR INFECTION [205510] (04/07/11) GLYCEMIA IMBALANCE [823051] (04/07/11) ANXIETY [381051] (04/09/11) Ineffective Coping [372390] (04/09/11) SELF CARE DEFICIT [199862] (04/09/11) ALTERATION IN MOOD [942289] (04/09/11) Data: Was npo for ECT this morning. The maria isabel was inserted by the IVRN. Was escorted to [facility] by the T and was returned to the floor after recovery from ECT. Finger stick at 08 was 177. At 1049 theFinger stick was 221 and received 5 units of Aspart Insulin. Ate all of his breakfast. Rested on his bed until lunch. Finger stick at 1210 was 218 and received 5 units of Aspart Insulin. Ate all of his lunch. Was social with peers. Requested and received Ativan 1 mg po for anxiety at 1250. Rested in bed for a short while after lunch. Received a visit from his daughter this afternoon and walked around the unit with her. Denied side effects of ECT. Action: Assess for suicidal ideation. Maintain npo prior to leaving for ECT. IVRN inserted the maria isabel prior to leaving for ECT. Monitor for side effects of ECT. Do finger sticks at 08, upon return from PACU and give Aspart Insulin coverage prior to eating breakfast. Do fingerstick prior to eating lunch and after checking with Dr. Jauregui. Aspart Insulin was given with lunch. Offer one to one. Encourage groups. Utilize teaching opportunities. Response: Appetite continued to be excellent. Denied side effects of ECT. Did not verbalize suicidal ideation. Continued to improve. Was more social with peers. Received a visit from his daughter. Tamika Cordero RN 04/09/2011 14:32 * Anesthesia Pre-Eval - Margarita Armendariz CRNA - 04/09/2011 0938 EST Anesthesia ECT Pre-Evaluation Name: SHAHNAZ SANTIAGO : 1950 Date: 04/09/2011 Age: 60 y.o. No Known Allergies Patient Active Problem List Diagnoses ??? Diabetes mellitus No outpatient prescriptions have been marked as taking for the 03/22/11 encounter (Hospital Encounter) with Mary Jauregui MD. Vital Signs: BP 119/68 Pulse 81 Temp(Src) 36.3 ??C (97.4 ??F) (Tympanic) Resp 18 Ht 185.4 cm (72.99) Wt 99.973 kg (220 lb 6.4 oz) BMI 29.08 kg/m2 SpO2 98% Fasting Status Confirmed: Yes Airway Evaluation: Mallampati: 1 Mouth Opening: Normal Jaw Thrust: Normal T-M Distance: Normal Neck: ROM Normal Teeth: Full Dentures ASA Physical Status: III Anesthesia Consent obtained on a separate document. See Anesthesia Consent form for details. Unless otherwise noted, follow standard anesthesia pre-operative protocol. MARGARITA ARMENDARIZ CRNA 04/09/2011 * Anesthesia Pre-Eval - Margarita Armendariz CRNA - 04/09/2011931 EST Anesthesia ECT Pre-Evaluation Name: SHAHNAZ SANTIAGO : 1950 Date: 04/09/2011 Age: 60 y.o. No Known Allergies Patient Active Problem List Diagnoses ??? Diabetes mellitus No outpatient prescriptions have been marked as taking for the 03/22/11 encounter (Hospital Encounter) with Mary Jauregui MD. Vital Signs: BP 119/68 Pulse 81 Temp(Src) 36.3 ??C (97.4 ??F) (Tympanic) Resp 18 Ht 185.4 cm (72.99) Wt 99.973 kg (220 lb 6.4 oz) BMI 29.08 kg/m2 SpO2 98% Fasting Status Confirmed: Yes Airway Evaluation: Mallampati: 1 Mouth Opening: Normal Jaw Thrust: Normal T-M Distance: Normal Neck: ROM Normal Teeth: Full Dentures ASA Physical Status: III Anesthesia Consent obtained on a separate document. See Anesthesia Consent form for details. Unless otherwise noted, follow standard anesthesia pre-operative protocol. MARGARITA ARMENDARIZ CRNA 04/09/2011 * ECT Report - Juwan Walter MD - 04/09/2011 09 EST Psychiatry Procedure Note Title of Procedure: Electroconvulsive Therapy Date Performed: 04/09/2011 Time Performed: 912 Treatment Number: 5 Treatment Type: Index Treatment Visit: Inpatient Performed by: JUWAN Manzanares MD, personally performed this procedure in its entirety. Indications and/or Provisional Diagnosis: 296.33: Major Depressive Disorder, severe, without Psychotic features Consent: Written consent was obtained from patient/guardian after being informed of the risks, benefits and alternatives. Time Out: A time-out was completed prior to procedure verifying correct patient, procedure, settings and site. Patient's identification was Verbal;Armband verified, the consent for Right Unilateral site and Yesthe setting of the ECT machine was verified by Cely Rocha RN and Dr. Juwan Walter Procedure Technique/Description of Procedure: Electrode Placement: Right Unilateral Dosing Protocol: 0.3 ms Pulse-width Protocol (Formerly [facility]) Pulse width: 0.3 msec Frequency: 50 Hz Duration: 5 sec Current: 800 mA Type of Anesthesia/Sedation/Doses Induction Agent: Dose: 70 mg Other Anesthetic: meth Seizure Duration: Peripheral: 23 sec Electrical: 34 sec Unless otherwise noted, there was no blood loss, specimens removed, cultures obtained, or drains retained. Subjective: Progress notes indicate looking better, pt reports not so heavy Objective: Less irritable and psychomotor retarded Post Procedure Diagnosis and Findings: 296.33: Major Depressive Disorder, severe, without Psychoticfeatures Complications: None Plan: cont RUL 3 x week JUWAN WALTER MD 04/09/2011 9:14 * Plan of Care - David Bustillo - 04/09/2011 0651 EST Problem: ALTERATION IN SLEEP Goal: Informs Staff If Unable To Sleep Outcome: Ongoing Active Multi-Disciplinary problems: FALL RISK [106549] (03/22/11) ALTERED THOUGHT PROCESSES [601285] (03/22/11) ALTERATION IN SLEEP [511644] (03/23/11) ANXIETY [971242] (03/24/11) KNOWLEDGE DEFICIT [598687] (04/07/11) NUTRITION [259080] (04/07/11) RISK FOR INFECTION [075595] (04/07/11) GLYCEMIA IMBALANCE [395600] (04/07/11) Data: Pt awake at start of shift and watching television with another pt. Requested and recieved repeat of PRN Ambien at 2339 but did not take staff advice to lay down afterwards. Pt was found to be eating ice cream just shortly after the turn of midnight and was informed that if he continued to eat or drink, then his ECT procedure would not go forward in the AM. Pt complied with this and returned to his bed shortly afterwards. Pt wasn't firmly asleep until 0230. Action: Monitored for safety. Response: Pt remains safe on the unit. Slept approximately 4.5 hours on acupressure therapist. DAVID BUSTILLO RN 04/09/2011 6:46 * Plan of Care - Meghan Melchor RN - 04/08/20112046 EST Problem: ALTERED THOUGHT PROCESSES Goal: Desires Improvement In Ability To Think & Concentrate Outcome: Ongoing Active Multi-Disciplinary problems: FALL RISK [617565] (03/22/11) ALTERED THOUGHT PROCESSES [403861] (03/22/11) ALTERATION IN SLEEP [369631] (03/23/11) ANXIETY [851674] (03/24/11) KNOWLEDGE DEFICIT [479829] (04/07/11) NUTRITION [643891] (04/07/11) RISK FOR INFECTION [149208] (04/07/11) GLYCEMIA IMBALANCE [986924] (04/07/11) Data: Denies SI/HI. Shoulder pain 10/27; down to 5/10 after prn percocet. Spent majority of this shift in the milieu with peers; social. Cooperative, pleasant. Brighter affect (than yesterday); smiling and joking appropriately. Good appetite, good ADLs. Pt's daughter called for an update this evening. Action: Level III on routine observation. Psych shift assessment. Administered medication as scheduled. Supportive 1:1. ECT tomorrow morning; IV request for tomorrow 0600; NPO after midnight; no benzo's after 1900. Requested/recieved prn ativan 1 mg at 1730; requested/recieved prn percocet at 1730;requested/recieved prn percocet 2011. Response: Compliant with scheduled medications. Participated in group this evening. Working on art project analia in activity room with peers. Will continue to monitor. MEGHAN MELCHOR RN 04/08/2011 20:36 * Plan of Care - Tamika Cordero - 04/08/2011 1440 EST Problem: NUTRITION Patient unable to self-regulate blood glucose level Goal: Blood Glucose Control Maintain plasma glucose levels within expected range. Intervention: Hyperglycemia Management Active Multi-Disciplinary problems: FALL RISK [441113] (03/22/11) ALTERED THOUGHT PROCESSES [976438] (03/22/11) ALTERATION IN SLEEP [838855] (03/23/11) ANXIETY [779226] (03/24/11) KNOWLEDGE DEFICIT [210169] (04/07/11) NUTRITION [509501] (04/07/11) RISK FOR INFECTION [964834] (04/07/11) GLYCEMIA IMBALANCE [300439] (04/07/11) Data: Fingerstick at 0750 was 251 and received 7 units of Aspart Insulin. At 1208 his fingerstick was 254 and the patient received 7 units of Aspart Insulin. Ate breakfast in the dining room and lunch in his room. Attended a group. Rested in bed after lunch. Mood was far less labile and did not have episodes of irritability. Was pleasant and cooperative with staff. Action: Assess for suicidal ideation. Monitor for pain. Assess for positive effects of ECT. Monitorfor side effects of ECT. Will be npo after midnight for ECT in the morning. Will need a maria isabel prior to leaving for treatment. No benzos after 1900. Do fingersticks ac meals and give Aspart Insulin based on the sliding scale. Offer one to one. Encourage groups. Utilize teaching opportunities. Response: Was cooperative and pleasant on interactions with staff. Was compliant with diet. Denied any side effects of ECT. Rested in the afternoon. Tamika Cordero RN 04/08/2011 14:16 * Plan of Care - Mega Deleon RN - 04/08/2011 0217 EST Problem: ALTERATION IN SLEEP Goal: Reports Nightly Sleep, Duration And Quality Intervention: Document duration, quality of sleep and reasons Active Multi-Disciplinary problems: FALL RISK [109601] (03/22/11) ALTERED THOUGHT PROCESSES [253327] (03/22/11) ALTERATION IN SLEEP [629953] (03/23/11) ANXIETY [002898] (03/24/11) KNOWLEDGE DEFICIT [570125] (04/07/11) NUTRITION [385833] (04/07/11) RISK FOR INFECTION [114019] (04/07/11) GLYCEMIA IMBALANCE [249343] (04/07/11) Data: Patient was awake at the onset of shift. Denies SI/HI/Pain. Says he is unable to sleep tonight and has been watching movies. Patient requested ativan and nicotine at 01:14 this morning. Was seen wearing ear-buds he said his daughter brought in from home today. Action: Educated on frequency status with ear-buds, after MD notified and order requested. Maintained on routine status then frequents with ear-buds. Supportive 1:1 time provided. PRNs provided upon request. Response: Patient remained safe this shift. Patient slept from 03:00 to 07:30 for a total of 4.5 hours. MEGA DELEON RN 04/08/2011 2:14 * Plan of Care - Meghan Melchor RN - 04/07/2011 2242 EST Problem: ALTERED THOUGHT PROCESSES Goal: Desires Improvement In Ability To Think & Concentrate Outcome: Ongoing Active Multi-Disciplinary problems: FALL RISK [579008] (03/22/11) ALTERED THOUGHT PROCESSES [351050] (03/22/11) ALTERATION IN SLEEP [311210] (03/23/11) ANXIETY [175537] (03/24/11) KNOWLEDGE DEFICIT [959351] (04/07/11) NUTRITION [503251] (04/07/11) RISK FOR INFECTION [264229] (04/07/11) GLYCEMIA IMBALANCE [975809] (04/07/11) Data: Denies SI/HI. C/o shoulder pain 10/27. Pleasant, cooperative and willing to engage. Participated in wii group. Spent the majority of the shift in the milieu; social with peers. Good appetite. Action: Level III on routine observation. Psych shift assessment. Administered medication as scheduled. Supportive 1:1. Encouraged to participate in groups. FS at 1700 168; received 2 units novolog; FS at HS 271. Requested/recieved prn ativan 1 mg at 2017. Requested/recieved prn percocet at 2017. Response: Complaint with scheduled medication. Will continue to monitor. MEGHAN MELCHOR RN 04/07/2011 22:38 * Plan of Care - Gil Tamika Juli - 04/07/2011 3441 EST Problem: GLYCEMIA IMBALANCE Goal: Patient???s Continuum Of Care Needs Are Met Intervention: Encourage participation in diabetes management Active Multi-Disciplinary problems: FALL RISK [059605] (03/22/11) ALTERED THOUGHT PROCESSES [240899] (03/22/11) ALTERATION IN SLEEP [960604] (03/23/11) ANXIETY [542177] (03/24/11) KNOWLEDGE DEFICIT [880662] (04/07/11) NUTRITION [841168] (04/07/11) RISK FOR INFECTION [850401] (04/07/11) GLYCEMIA IMBALANCE [438970] (04/07/11) Data: Was npo for ECT this morning. The maria isabel was inserted by the INRN. Attended a morning group before going for ECT. Was escorted to [facility] by the [facility]. After recovery in the PACU the patient was returned to the floor via wheelchair. Had received Motrin 600 mg for a headache and Ativan 1 mg for anxiety in the PACU. Stated that the Motrin had helped his headache. Received a visit from his daughter. His fingerstick at 0736 was 163 and did not receive Insulin because he was npo. At 1148 the fingerstick was 255 and the patient received 7 units of Aspart Insulin with his lunch. Action: Maintain npo prior to going for ECT. Maria Isabel was inserted by the IVRN. Was escorted to [facility] for ECT by the [facility] and returned to the floor after recovery from ECT. Offer one to one. Encourage groups. Do finger stick prior to eating. Give Aspart Insulin as ordered when tray in his room. Utilizeteaching opportunities. Monitor for side effects of ECT. Response: Was compliant with medications. Was pleasant on interactions. Acknowledged that he did not approve of having to take insulin while in the hospital. Did not verbalize any side effects of theECT. Tamika Cordero RN 04/07/2011 14:22 1525 Requested and received Percocet for right shoulder pain. Stated that he gets mild headaches after ECT. Denied any side effects of ECT. * Anesthesia Post-Eval - Josue Martinez (Hortensia) - 04/07/2011 1132 EST Post Anesthesia Evaluation Note Date of Service: 04/07/2011 Shahnaz Santiago, a 60 y.o. year old male has received General Anesthesia He has been evaluated, assessed and discharged from anesthesia care with stable cardiorespiratory function and alert mental status. The last set of recorded vital signs and pain rating were reviewed: Temp: 37.2 ??C (99 ??F) (04/07/11 1038), Heart Rate: 78 BPM (04/07/11 1122), BP: 116/85 mmHg (04/07/11 1115), Resp: 22 (04/07/11 1122), SpO2: 98 % (04/07/11 1122),Numeric Pain Level (Scale 1-10): 2 (had ache) Shahnaz Santiago participated in this evaluation unless otherwise noted. His pain, nausea and vomiting have been managed and his body temperature and fluid balance have been restored. Additional monitoring and assessment needs have been addressed. If present, any postoperative events are documented below. The patient has made a satisfactory and uncomplicated recovery from general anesthesia for ECT. He is stable for discharge from the PACU to the floor. JOSUE MARTINEZ MD (ANES) 04/07/2011 11:32 * Anesthesia Post-Eval - Monika Kamara - 04/07/2011 1122 EST Post Anesthesia Evaluation Note Date of Service: 04/07/2011 Shahnaz Santiago, a 60 y.o. year old male has received General Anesthesia He has been evaluated, assessed and discharged from anesthesia care with stable cardiorespiratory function and alert mental status. The last set of recorded vital signs and pain rating were reviewed: Temp: 37.2 ??C (99 ??F) (04/07/11 1038), Heart Rate: 79 BPM (04/07/11 1115), BP: 116/85 mmHg (04/07/11 1115), Resp: 13 (04/07/11 1115), SpO2: 99 % (04/07/11 1115),Numeric Pain Level (Scale 1-10): 4 S/p GA for ECT. Shahnaz Santiago participated in this evaluation unless otherwise noted. His pain, nausea and vomiting have been managed and his body temperature and fluid balance have been restored. Additional monitoring and assessment needs have been addressed. If present, any postoperative events are documented below. If the regional block for postoperative analgesia was intended to last greater than 48 hours, Shahnaz Santiago will be followed by the Acute Pain Service. MONIKA KAMARA MD 04/07/2011 11:22 * Anesthesia Post-EvJustice So CRNA - 04/07/2011 1110 EST Post Anesthesia Evaluation Note Date of Service: 04/07/2011 Shahnaz Santiago, a 60 y.o. year old male has received General Anesthesia He has been evaluated, assessed and discharged from anesthesia care with stable cardiorespiratory function and alert mental status. The last set of recorded vital signs and pain rating were reviewed: Temp: 37.2 ??C (99 ??F) (04/07/11 1038), BP: 138/84 mmHg (04/07/11 1045), Resp: 15 (04/07/11 1038),SpO2: 96 % (04/07/11 1038),Numeric Pain Level (Scale 1-10): 0 JUSTICE WALSH CRNA 04/07/2011 11:10 * Anesthesia Pre-Eval - Josue Martinez (Hortensia) - 04/07/2011 1025 EST Anesthesia ECT Pre-Evaluation Name: SHAHNAZ SANTIAGO : 1950 Date: 04/07/2011 Age: 60 y.o. No Known Allergies Patient Active Problem List Diagnoses ??? Diabetes mellitus No outpatient prescriptions have been marked as taking for the 03/22/11 encounter (Hospital Encounter) with Mary Jauregui MD. Vital Signs: BP 126/72 Pulse 78 Temp(Src) 36.2 ??C (97.2 ??F) (Tympanic) Resp 16 Ht 185.4 cm (72.99) Wt 99.973 kg (220 lb 6.4 oz) BMI 29.08 kg/m2 SpO2 97% Fasting Status Confirmed: Yes Airway Evaluation: Mallampati: 2 Mouth Opening: Normal Jaw Thrust: Normal T-M Distance: Neck: ROM Normal Teeth: Full Dentures ASA Physical Status: III Anesthesia Consent obtained on a separate document. See Anesthesia Consent form for details. Unless otherwise noted, follow standard anesthesia pre-operative protocol. JOSUE MARTINEZ MD (ANES) 04/07/2011 * ECT Report - Juwan Walter MD - 04/07/2011 1015 EST Psychiatry Procedure Note Title of Procedure: Electroconvulsive Therapy Date Performed: 04/07/2011 Time Performed: 1014 Treatment Number: 4 Treatment Type: Index Treatment Visit: Inpatient Performed by: JUWAN Manzanares MD, personally performed this procedure in its entirety. Indications and/or Provisional Diagnosis: 296.33: Major Depressive Disorder, severe, without Psychotic features Consent: Written consent was obtained from patient/guardian after being informed of the risks, benefits and alternatives. Time Out: A time-out was completed prior to procedure verifying correct patient, procedure, settings and site. Patient's identification was Verbal;Armband verified, the consent for Right Unilateral site and Yesthe setting of the ECT machine was verified by Cely Rocha RN and Dr. Juwan Walter Procedure Technique/Description of Procedure: Electrode Placement: Right Unilateral Dosing Protocol: 0.3 ms Pulse-width Protocol ([facility]) Pulse width: 0.3 msec Frequency: 50 Hz Duration: 5 sec Current: 800 mA Type of Anesthesia/Sedation/Doses Induction Agent: Dose: 70 mg Other Anesthetic: metho Seizure Duration: Peripheral: 30 sec Electrical: 55 sec Unless otherwise noted, there was no blood loss, specimens removed, cultures obtained, or drains retained. Subjective: Notes no change in mood, daughter says sounds better, frustrated about having to wait for breakfast Objective: Less psychomotor retarded . No memory concerns Post Procedure Diagnosis and Findings: 296.33: Major Depressive Disorder, severe, without Psychoticfeatures Complications: None Plan: Cont RUL 3 x week JUWAN WALTER MD 04/07/2011 10:26 * Plan of Care - Matt Coats RN - 04/07/2011613 EST Problem: ALTERATION IN SLEEP Goal: Reports Nightly Sleep, Duration And Quality Outcome: Ongoing Active Multi-Disciplinary problems: FALL RISK [030007] (03/22/11) ALTERED THOUGHT PROCESSES [365115] (03/22/11) ALTERATION IN SLEEP [215904] (03/23/11) ANXIETY [910369] (03/24/11) Data: Asked for repeat dose of Ambien at about midnight. Was alone in TV room until 01:00 when he proclaimed that he was going to retire. Appropriate while up. Upon reminder that he was NPO after midnight, he responded I know and looked like he complied. Action: Provide emotional support and monitor rest and sleep. Response: Meeting minimal goal for sleep today. Matt Coats RN 04/07/2011 6:10 * Plan of Care - Mega Deleon RN - 04/06/20112037 EST Problem: ALTERED THOUGHT PROCESSES Goal: Effective communication and interaction with others Outcome: Ongoing Active Multi-Disciplinary problems: FALL RISK [207066] (03/22/11) ALTERED THOUGHT PROCESSES [476015] (03/22/11) ALTERATION IN SLEEP [190745] (03/23/11) ANXIETY [510626] (03/24/11) Data: Patient was asleep at onset of shift and woke up at 16:38, requesting ativan for anxiety and percocet for shoulder pain. He requested another ativan and percocet at 19:55 and nicotine cartridgeat 20:13. Patient has been pleasant, social with peers in the dining room. Patient was concerned with his food tray this evening, saying he only gets part of what he orders and he is afraid he's not getting enough to eat. He ate the first tray delivered consisting of a veggie burrito; but, dietary was called due to his concern and they sent up another tray with a turkey slice, small salad and small custard per their approval of his dietary order. Patient took his insulin in between the two meals and mentioned hoping he would not go into hypoglycemic coma, due to not eating enough. Denies SI, HI and says he has chronic rotator cuff pain. Action: Patient menu discussed and dietary consult offered. Patient provided with supportive 1:1 time and maintained on routine observation for safety. Requested prn medications provided per request for anxiety and shoulder pain. Response: Patient remained safe this shift. He declined a dietary consult saying, I'll only get what they send anyway. MEGA DELEON RN 04/06/2011 20:15 * Plan of Care - Alice Fatima RN - 04/06/2011 1303 EST Problem: ALTERED THOUGHT PROCESSES Goal: Effective communication and interaction with others Active Multi-Disciplinary problems: FALL RISK [586093] (03/22/11) ALTERED THOUGHT PROCESSES [361862] (03/22/11) ALTERATION IN SLEEP [499649] (03/23/11) ANXIETY [020155] (03/24/11) Data: The patient has been appropriate although his interactions have been superficial. He answerers questions without any detail. He is aware that his prn order for Percocet is now twice a day, and has denied pain thus far today.He has had Aspart Insulin twice this shift, 7 units in the AM (fingerstick 267) and 3 units at lunch (fingerstick 200). I have heard him complaining about not getting what he ordered on his tray. He went directly to ent nurse to resolve the matter as if it has happened before. He denies SI. He has no plan to go on pass today. Action: Maintained on routine observations and provided safety in environment of care. Assessed pain and SI. Monitored behavior and functioning. Provided support and focused on pt's strengths. Administered medication and assessed efficacy and SE. Response: Uneventful shift without use of PRN medication (except Nicotine Inhaler). Reports no concerns and has been out of his room and interacting with peers. Alice Fatima RN 04/06/2011 12:53 * Plan of Care - Matt Coats RN - 04/06/2011 0611 EST Problem: ALTERATION IN SLEEP Goal: Reports Nightly Sleep, Duration And Quality Outcome: Ongoing Active Multi-Disciplinary problems: FALL RISK [703191] (03/22/11) ALTERED THOUGHT PROCESSES [849950] (03/22/11) ALTERATION IN SLEEP [554298] (03/23/11) ANXIETY [766625] (03/24/11) Data: Asked for his second dose of Ambien at about 00:00. Encouraged to go to bed when taking this second dose. I will know when it will begin to hit me. At about 01:30 requested a nicotine inhalerdespite discouragement. Nicotine settles me down. Action: Monitor rest and sleep. Provide emotional support. Response: Failed to meet daily sleep goals for this shift. Slept only 2 hours. Matt Coats RN 04/06/2011 6:01 * Plan of Care - Mega Deleon RN - 04/05/20111951 EST Problem: ANXIETY Goal: Verbalizes Ways To Manage Anxiety Outcome: Ongoing Active Multi-Disciplinary problems: FALL RISK [799954] (03/22/11) ALTERED THOUGHT PROCESSES [992438] (03/22/11) ALTERATION IN SLEEP [527389] (03/23/11) ANXIETY [384714] (03/24/11) Data: Patient was resting in bed at onset of shift. He ate dinner with male peers in dining room and talked socially with the group. Patient discussed having to remain in the hospital for a while dueto completing ECT treatments. Says this is all right because, I don't know where I would be right now. My daughter is working on a place for me, I guess. I don't know where I am going to end up. Patient denies SI/HI. Requested ativan for anxiety during dinner and says he will want a second doseat bedtime. Requested percocet for shoulder pain. Action: Maintained on routine observation for safety. Provided with prn ativan and percocet per request. Provided with supportive 1:1 time. Response: Patient remained safe this shift. Stated ativan relieves anxiety and percocet relieves pain successfully. MEGA DELEON RN 04/05/2011 19:41 * Plan of Care - Ervin Osorio RN - 04/05/2011 0936 EST Problem: ALTERED THOUGHT PROCESSES Goal: Effective communication and interaction with others Outcome: Ongoing Active Multi-Disciplinary problems: FALL RISK [544342] (03/22/11) ALTERED THOUGHT PROCESSES [864177] (03/22/11) ALTERATION IN SLEEP [297368] (03/23/11) ANXIETY [170140] (03/24/11) Data: FS this am 155. Pt received 2 units insulin. Pt did own injection. Ate breakfast and lunch indining room. Complained about rt shoulder pain that he states is d/t an old rotator cuff injury. Stated that he took oxycodone at home. Agreed to try ibuprofen 600mg at 0850 for 8/10 pain. Was sleeping when re- assessed, and napped until lunch time. FS 260 at 1200 and 7 units aspart given at 1233. Action: Routine observation. Relayed pt's request for additional pain med to resident. Response: Pt cooperative this am. Friendly and social with peer in DR Ervin Osorio RN 04/05/2011 9:25 * Plan of Care - Matt Coats RN - 04/05/2011 0620 EST Problem: ALTERATION IN SLEEP Goal: Reports Nightly Sleep, Duration And Quality Outcome: Ongoing Active Multi-Disciplinary problems: FALL RISK [305602] (03/22/11) ALTERED THOUGHT PROCESSES [882976] (03/22/11) ALTERATION IN SLEEP [805929] (03/23/11) ANXIETY [201760] (03/24/11) Data: Awake at beginning of shift. Used several doses of nicotine inhaler while up. When patient said he could not sleep near the 03:00 mary, the financial writer suggested that he go lie down if he wanted to use Ativan to help him sleep rather than stay up smoking in front of TV. Patient responded positively to the suggestion and was in bed shortly thereafter. Action: Provide emotional support and monitor rest and sleep. Response: Patient did not meet daily sleep goals during this shift. Matt Coats RN 04/05/2011 6:15 * Plan of Care - Annie Torrese - 04/04/2011 2234 EST Problem: ALTERED THOUGHT PROCESSES Goal: Effective communication and interaction with others Outcome: Ongoing Data: Pt irritable, expressing frustration and displeasure frequently. Denied pain, shaking head and looking away. Denied SI, HI in same manner. Stated repeatedly, It doesn't matter. Nothing matters. BS 124 at dinner, which pt attributed to no food. When questioned, it seems pt did not get up at lunch but remained in bed. He was dissatisfied with the amount and type of food at dinner this isnothing. A human being can't survive on this but declined offers to reorder foods or obtain snacks. HS BS was 200. VS stable. Action: Monitored on level III routine checks for safety. Psych shift assessment. 1: 1 support offered. Encouraged groups, unit activities. Gave medications as ordered. Response:Pt continues irritable. Watching TV with peer throughout shift.Med compliant. CHRISTINA TORRES RN 04/04/2011 22:23 * Plan of Care - Rema Garcia RN - 04/04/2011 1335 EST Problem: ALTERED THOUGHT PROCESSES Goal: Effective communication and interaction with others Outcome: Ongoing Active Multi-Disciplinary problems: FALL RISK [454574] (03/22/11) ALTERED THOUGHT PROCESSES [393394] (03/22/11) ALTERATION IN SLEEP [918782] (03/23/11) ANXIETY [444332] (03/24/11) Data: Pt denies SI/HI, A/V/H, and pain. Pt is very irritable and dismissive with financial writer. Pt denied needing any help and was very irritated with having to have his FS and insulin done. Pt stated youpeople will be back in a minute to do something else to me. I can't get any rest, Pt spent his entire day in his room. Pt was med compliant. Pt did not want to discuss his treatment plan or any problems that he may be struggling with at this time. Pt did have ECT this am. Action: Pt given continuous supportive nursing care, attempts at 1;1, and medication per MD order. Pt encouraged to attend groups. Will continue to monitor. Response: Pt remains irritable and continues to spend time in his room. REMA GARCIA RN 04/04/2011 13:30 * Anesthesia Post-Pro - Kee Fischer - 04/04/2011 1003 EST Post Anesthesia Evaluation Note Date of Service: 04/04/2011 Shahnaz Santiago, a 60 y.o. year old male has received General Anesthesia He has been evaluated, assessed and discharged from anesthesia care with stable cardiorespiratory function and alert mental status. The last set of recorded vital signs and pain rating were reviewed: Temp: 36.1 ??C (97 ??F) (04/04/11934), Heart Rate: 77 BPM (04/04/11944), BP: 114/69 mmHg (04/04/11944), Resp: 13 (04/04/11944), SpO2: 98 % (04/04/11944), Pulse: 77 (04/04/1135),Numeric Pain Level (Scale 1-10): 0 Shahnaz Santiago participated in this evaluation unless otherwise noted. His pain, nausea and vomiting have been managed and his body temperature and fluid balance have been restored. Additional monitoring and assessment needs have been addressed. If present, any postoperative events are documented below. If the regional block for postoperative analgesia was intended to last greater than 48 hours, Shahnaz Santiago will be followed by the Acute Pain Service. KEE FISCHER MD 04/04/2011 10:03 * Anesthesia Pre-Eval - Kee Fischer - 04/04/2011 0917 EST Anesthesia ECT Pre-Evaluation Name: SHAHNAZ SANTIAGO : 1950 Date: 04/04/2011 Age: 60 y.o. No Known Allergies Patient Active Problem List Diagnoses ??? Diabetes mellitus No outpatient prescriptions have been marked as taking for the 03/22/11 encounter (Hospital Encounter) with Mary Jauregui MD. Vital Signs: BP 114/59 Pulse 73 Temp(Src) 36.1 ??C (97 ??F) (Tympanic) Resp 16 Ht 185.4 cm (72.99) Wt99.973 kg (220 lb 6.4 oz) BMI 29.08 kg/m2 SpO2 97% Fasting Status Confirmed: Yes Airway Evaluation: Mallampati: 2 Mouth Opening: Normal Jaw Thrust: Normal T-M Distance: Neck: ROM Normal Teeth: Full Dentures ASA Physical Status: III Anesthesia Consent obtained on a separate document. See Anesthesia Consent form for details. Unless otherwise noted, follow standard anesthesia pre-operative protocol. KEE FISCHER MD 04/04/2011 * ECT Report - Juwan Walter MD - 04/04/2011 0904 EST Psychiatry Procedure Note Title of Procedure: Electroconvulsive Therapy Date Performed: 04/04/2011 Time Performed: 901 Treatment Number: 3 Treatment Type: Index Treatment Visit: Inpatient Performed by: JUWAN Manzanares MD, personally performed this procedure in its entirety. Indications and/or Provisional Diagnosis: 296.33: Major Depressive Disorder, severe, without Psychotic features Consent: Written consent was obtained from patient/guardian after being informed of the risks, benefits and alternatives. Time Out: A time-out was completed prior to procedure verifying correct patient, procedure, settings and site. Patient's identification was Verbal;Armband verified, the consent for Right Unilateral site and Yesthe setting of the ECT machine was verified by Luke Flores and Dr. Juwan Walter Procedure Technique/Description of Procedure: Electrode Placement: Right Unilateral Dosing Protocol: 0.3 ms Pulse-width Protocol ([facility]) Pulse width: 0.3 msec Frequency: 50 Hz Duration: 5 sec Current: 800 mA Type of Anesthesia/Sedation/Doses Induction Agent: Dose: 70 mg Other Anesthetic: metho Seizure Duration: Peripheral: 29 sec Electrical: 40 sec Unless otherwise noted, there was no blood loss, specimens removed, cultures obtained, or drains retained. Subjective: Pt tolerated first two tx fine, no change in mood, Objective: Alert, may be less psychomotor Retarded Post Procedure Diagnosis and Findings: 296.33: Major Depressive Disorder, severe, without Psychoticfeatures Complications: None Plan: Cont RUL 3 x week JUWAN WALTER MD 04/04/2011 9:14 * Plan of Care - Abbi Nash RN - 04/04/2011 0681 EST Problem: ALTERATION IN SLEEP Goal: Reports Nightly Sleep, Duration And Quality Intervention: Document duration, quality of sleep and reasons Active Multi-Disciplinary problems: FALL RISK [739504] (03/22/11) ALTERED THOUGHT PROCESSES [624072] (03/22/11) ALTERATION IN SLEEP [681057] (03/23/11) ANXIETY [140697] (03/24/11) Data: De[ressed. Diabetes, ECT Action: Routine observations, assessed for s/s pain, sleep, mood. Offered supportive interaction, reminded to remain NPO. Medicated with nicorette inhalers, prn. C/o difficulty sleeping and requestedmore medication but is NPO so denied anything further. Wanted to eat ice cream and was reminded notto. Saline lock being placed now. Response: Went to bed after watching a movie and then TV. Slept after 0245. Total 4 hours. Denies pain. NPO for ECT. Abbi Nash RN 04/04/2011 6:38 * Plan of Care - Christina Torres - 04/03/2011 4527 EST Problem: ANXIETY Goal: Verbalizes Ways To Manage Anxiety Outcome: Met This Shift Data: Pt depressed, hopeless, irritable for much of shift. Denied SI, HI. Denied pain. FSBS 169 at dinnertime. As evening progressed, pt's mood changed and he became tearful regarding past mistakes with daughter, was able to express feelings and gain insight into letting go of past, moving on, getting in shape and improving health. Hopeful thoughts and feelings expressed.Positive reality- based conversation.Positive phone message left by daughter. Requested repeat dose Ambien c/o insomnia.ECT scheduled for tomorrow AM. IV placement to be done in early am.VS stable. Action: Routine level III checks for safety. Psych shift assessment. Gave 1:1 support . Encouraged groups, tx plan, positive coping methods.Gave medications as ordered. Ambien 10mg at 2100 and 2209. Response: Pt's anxiety somewhat relieved, engaging in friendly interactions with staff, peers.Much less irritable, negative at this time. Currently still up watching tv, socializing. CHRISTINA TORRES RN 04/03/2011 22:43 * Plan of Care - Juana Peña - 04/03/2011 1506 EST Problem: ALTERED THOUGHT PROCESSES Goal: Desires Improvement In Ability To Think & Concentrate Active Multi-Disciplinary problems: FALL RISK [214904] (03/22/11) ALTERED THOUGHT PROCESSES [094125] (03/22/11) ALTERATION IN SLEEP [157566] (03/23/11) ANXIETY [969047] (03/24/11) Data: Patient pleasant upon awakening this AM. Allowed this financial writer to administer medications, and take his FS without one complaint. FS at 08 was 195, patient was given 3 units of Novolog with his breakfast. Ate 100% of both meals. Used tylenol PRN at 0900 for a mild headache, with good result. Patient napped after breakfast. VSS today. Daughter and son-in-law in before lunch. Patient was noted to be increasingly irritable and agitated around lunch time. His FS was 241 at 1200. Patient was given 5 units of Novolog with his lunch. Irritable with this financial writer around 1200. After visitors left, patient was much more pleasant to interact with. He sat in the day room with this financial writer and engaged. He spoke of his frustration in his current condition/ and wants to get better. He mentions poor concentration and the inability to read. He feels overwhelmed at times and looks back on his life with regret. Wishes he had gone to school longer and pursued other opportunities. Patient had much insightabout his life during this interaction. He speaks of having low self-confidence even as a child. [facility]alls [facility] and remembers how sad and scared he was at that time. He wonders whether other children felt the same way, or if he was different. Patient declined the writing for handsomexcutive group this afternoon, even though highly encouraged to try it out. Retreated back to bed, in hisdarkened room this afternoon. No PRNs needed today. Action: Engaged with patient, offered support and stabilization. Monitored for safety and continuedon routine checks. Assessed for changes in condition/behaviour, offered medications per MD order. Continued to build upon therapeutic alliance. Response: Patient remained safe while on the unit, will continue to monitor. Juana Peña RN 04/03/2011 14:56 * Plan of Care - Abril Sheppard RN - 04/03/2011 0637 EST Problem: ALTERATION IN SLEEP Goal: Reports Nightly Sleep, Duration And Quality Intervention: Document duration, quality of sleep and reasons Active Multi-Disciplinary problems: FALL RISK [023286] (03/22/11) ALTERED THOUGHT PROCESSES [041904] (03/22/11) ALTERATION IN SLEEP [445981] (03/23/11) ANXIETY [506454] (03/24/11) Data: Pt watching TV on milieu at start of shift. Pt ate multiple snacks before going to bed including peanut butter crackers, mac and cheese, & ice cream. V/s stable. Pt documented asleep @ 0234, out of bed from [id number], no further awakenings noted. Action: Perform routine observations. Monitor v/s, mood & sleep. Supportive interactions. Response: Pt cooperative with this financial writer, smiled and joked while having v/s checked. No needs voiced. Pt slept about 4 hours thus far. Abril Sheppard RN 04/03/2011 6:32 * Plan of Care - Loraine Serna RN - 04/02/20117 EST Problem: ALTERATION IN SLEEP Goal: Informs Staff If Unable To Sleep Intervention: Encourage patient to inform staff if awake at rounds Problem: ALTERATION IN SLEEP Goal: Informs Staff If Unable To Sleep Outcome: Ongoing Problem: ANXIETY Goal: Verbalizes Ways To Manage Anxiety Outcome: Ongoing Active Multi-Disciplinary problems: FALL RISK [[id number]] (03/22/11) ALTERED THOUGHT PROCESSES [798192] (03/22/11) ALTERATION IN SLEEP [572898] (03/23/11) ANXIETY [[id number]] (03/24/11) Data: Patient watched tv, social with peers, irritable. Patient c/o headache 07/28. Requested and received tylenol 650 mg po @ 1730 w/ relief. Patient asked questions about his diet and would be good for patient to have dietary consult. Patient continues to question the amount he is eating and how he is going to waste away as a result. Patient had large helping of spaghetti and sauce for dinner plus 2 Snacks. States he never feels like he is getting enough food. Action: Assessed for SI/HI and self harm. Provided 1:1. Encouraged groups and spending time out of room. Administered meds. Utilized teaching opportunites. Response: Denies SI, irritable this shift, affect restricted. Appetite good. FS @ 1700 131, no insulin given. FS @ 2100 214. Patient had scheduled metformin. VSSA this shift. Patient requested and received ambien 10 mg po repeat dose an hour after first dose. Loraine Serna RN 04/02/2011 2200 * Plan of Care - Juana Peña - 04/02/2011 1507 EST Problem: ALTERED THOUGHT PROCESSES Goal: Desires Improvement In Ability To Think & Concentrate Active Multi-Disciplinary problems: FALL RISK [[id number]] (03/22/11) ALTERED THOUGHT PROCESSES [768912] (03/22/11) ALTERATION IN SLEEP [251802] (03/23/11) ANXIETY [060446] (03/24/11) Data: Patient slept well last night. ECT this AM. VSS, HTZ dc'd this AM. FS was 130 at 0900. Patient ate 100% of breakfast after ECT. ECT went well, patient had no complaints upon return, saline lockdc'd. FS at 1000 was 184, patient given 3 units of Novolog with his breakfast. Spent time in his room, then took a nap. FS at 1200 was 277. Patient ate in the dining room with peer [place]. Ate most of hi s lunch. 7 units of Novolog given with lunch. Patient's mood is depressed, he is uninterested in most activities. His thought process is ruminative and he is pretty much hopeless about the future. One word answers and lots of sighing when interacting with this financial writer. Continues to talk about this situation being unreal. Will not fully engage with this financial writer when asked. PRN Ativan 1 mg given [id number] for anxiety. Patient returned to bed after this. Remained asleep for the rest of the shift. Noreports of S/I to this financial writer. Action: Attempted to engage with patient, offered support and stabilization. Monitored for safety and continued on routine checks. Assessed for changes in condition/behaviour. Offered medications perMD order and attempted to build upon therapeutic alliance. Response: Patient remained safe while on the unit, will continue to monitor. Juana Peña RN 04/02/2011 15:00 * Anesthesia Pre-Eval - Sukhdeep Barcenas CRNA - 04/02/2011 0841 EST Anesthesia ECT Pre-Evaluation Name: SHAHNAZ SANTIAGO : 1950 Date: 04/02/2011 Age: 60 y.o. No Known Allergies Patient Active Problem List Diagnoses ??? Diabetes mellitus No outpatient prescriptions have been marked as taking for the 03/22/11 encounter (Hospital Encounter) with Sajan Stanford MD. Vital Signs: BP 124/75 Pulse 86 Temp(Src) 36.3 ??C (97.3 ??F) (Tympanic) Resp 14 Ht 185.4 cm (72.99) Wt 99.973 kg (220 lb 6.4 oz) BMI 29.08 kg/m2 SpO2 99% Fasting Status Confirmed: Yes Airway Evaluation: Mallampati: 2 Mouth Opening: Normal Jaw Thrust: Normal T-M Distance: Neck: ROM Normal Teeth: Full Dentures ASA Physical Status: III Anesthesia Consent obtained on a separate document. See Anesthesia Consent form for details. Unless otherwise noted, follow standard anesthesia pre-operative protocol. Sukhdeep Barcenas CRNA 04/02/2011 * ECT Report - Leni Dang MD - 04/02/2011 0828 EST Psychiatry Procedure Note Title of Procedure: Electroconvulsive Therapy Date Performed: 04/02/2011 Time Performed: 849 Treatment Number: 2 Treatment Type: Index Treatment Visit: Inpatient Performed by: Leni Manzanares MD, personally performed this procedure in its entirety. Indications and/or Provisional Diagnosis: 296.33: Major Depressive Disorder, severe, without Psychotic features Consent: Written consent was obtained from patient/guardian after being informed of the risks, benefits and alternatives. Time Out: A time-out was completed prior to procedure verifying correct patient, procedure, settings and site. Patient's identification was Verbal;Armband verified, the consent for Right Unilateral site and Yesthe setting of the ECT machine was verified by NAHUN Baeza and Dr. Shaheen Dang Procedure Technique/Description of Procedure: Electrode Placement: Right Unilateral Dosing Protocol: 0.3 ms Pulse-width Protocol ([facility]) Pulse width: 0.3 msec Frequency: 50 Hz Duration: 5 sec Current: 800 mA Type of Anesthesia/Sedation/Doses Induction Agent: Dose: 70 mg Other Anesthetic: methohexital Seizure Duration: Peripheral: 17 sec Electrical: 25 sec Unless otherwise noted, there was no blood loss, specimens removed, cultures obtained, or drains retained. Subjective: SI? I don't even know. Feels bad. No concerns re: ECT except felt that he had troublegetting his breath after anesthesia. Complaining of many small discomforts. Objective: Affect constricted. Grumpy, c/w depression. Normal speech. Motor seems a bit slowed. Post Procedure Diagnosis and Findings: 296.33: Major Depressive Disorder, severe, without Psychoticfeatures Complications: None Plan: Continue RUL ECT 3x/wk. Leni Dang MD 04/02/2011 8:59 * Plan of Care - Abril Sheppard RN - 04/02/2011 0645 EST Problem: ALTERATION IN SLEEP Goal: Reports Nightly Sleep, Duration And Quality Intervention: Document duration, quality of sleep and reasons Active Multi-Disciplinary problems: FALL RISK [[id number]] (03/22/11) ALTERED THOUGHT PROCESSES [671059] (03/22/11) ALTERATION IN SLEEP [468661] (03/23/11) ANXIETY [825713] (03/24/11) Data: Pt documented asleep @ 0034. Awakened @ 0245 for IV flush & v/s check. Action: Flush peripheral IV in left forearm, monitor v/s (111/62, p 96, t 36.0, 96% RA, 14). Available for supportive interactions. Routine observations. Response: No further awakenings noted. V/s remain wnl. Pt slept 6 hours thus far. Abril Sheppard RN 04/02/2011 6:41 * Plan of Care - Loraine Serna RN - 04/01/20116 EST Problem: ALTERATION IN SLEEP Goal: Informs Staff If Unable To Sleep Outcome: Ongoing Problem: ANXIETY Goal: Verbalizes Ways To Manage Anxiety Outcome: Ongoing Active Multi-Disciplinary problems: FALL RISK [264521] (03/22/11) ALTERED THOUGHT PROCESSES [650879] (03/22/11) ALTERATION IN SLEEP [043268] (03/23/11) ANXIETY [996793] (03/24/11) Data: Patient watched tv, social with peers, irritable. Patient shrugging his shoulders and sighingwhen talking about ECT, Glucose and anything that pertains to his care. Patient requested pastoral care visit after blood typer left this evening with encouragement from blood typer and his . Patient's daughter called asking if patient had ECT today. Daughter aware he is having ect tomorrow. States she is having difficulty talking to him because he is so sad and hopeless. Stated she would call him later after his company comes to visit this evening. Patient visited by blood typer and blood typer's this evening. Action: Assessed for SI/HI and self harm. Provided 1:1. Encouraged groups and spending time out of room. Administered meds. Utilized teaching opportunites. ECT in a.m. No benzo's this shift. Patient aware of npo after midnight. IV nurse called. Response: Denies SI, Irritability noted, affect restricted, no c/o pain. Appetite good. FS @ 1700 200, Patient had 3 units of aspart SQ. FS @ 2100 264. Patient had scheduled metformin. VSSA this shift. Patient requested and received ambien 10 mg po repeat dose an hour after first dose. Loraine Serna RN 04/01/2011 2200 * Plan of Care - Mely James - 04/01/2011 1327 EST Problem: ALTERED THOUGHT PROCESSES Goal: Effective communication and interaction with others Outcome: Ongoing Active Multi-Disciplinary problems: FALL RISK [587377] (03/22/11) ALTERED THOUGHT PROCESSES [569067] (03/22/11) ALTERATION IN SLEEP [069091] (03/23/11) ANXIETY [568590] (03/24/11) Data: Patient had c/o sedation and wanted his room to remain dark during med administration. Med compliant with FS 146 at breakfast and 187 at lunch. Ate meals in dining room. Minimally social with peers. Mood depressed with hopeless/helpless presentation. Irritable affect. Denies current SI. Appeared frustrated r/t use of novalog insulin as it was different from what he used at home.Minimal eye contact. Spent majority of shift in bed resting/sleeping Action: Continue to assess/monitor for safety. Asked MD to review current insulin use with pt. Encourage pt r/t upcoming ECT treatments and attempt to engage in unit activities. Response: Patient currently resting in bed. Mely James RN 04/01/2011 13:15 * Plan of Care - Abbi Nash RN - 04/01/2011 0524 EST Problem: ALTERATION IN SLEEP Goal: Reports Nightly Sleep, Duration And Quality Intervention: Document duration, quality of sleep and reasons Active Multi-Disciplinary problems: FALL RISK [111882] (03/22/11) ALTERED THOUGHT PROCESSES [821772] (03/22/11) ALTERATION IN SLEEP [699366] (03/23/11) ANXIETY [692680] (03/24/11) Data: Depressed, ECT. Action: Routine observations, assessed for s/s pain, sleep, mood. Offered supportive interaction prn. Response: Pleasant on brief interaction. Watched TV to 0000 then went to bed but had difficulty sleeping despite having had dose and repeat of Ambien on evening shift. Snacked. FL >250 x 2 in past24 hours. HO made aware and no further treatment ordered. Continue to encourage diet compliance fordiabetes. Total sleep 6 hours. Abbi Nash RN 04/01/2011 5:22 * Plan of Care - Loraine Serna RN - 03/31/2011 2220 EST Problem: ANXIETY Goal: Verbalizes Ways To Manage Anxiety Outcome: Ongoing Active Multi-Disciplinary problems: FALL RISK [053247] (03/22/11) ALTERED THOUGHT PROCESSES [315603] (03/22/11) ALTERATION IN SLEEP [829513] (03/23/11) ANXIETY [130106] (03/24/11) Data: Patient watched tv, social with peers, irritable and frustrated when talking about ECT schedule, his blood sugar's being high after eating two ice creams and a rice krispy treat. Discussed not eating HS snack before his FS and to try something different with more protein vs carbs. Patient stating he feels hopeless. Blood draw for nortriptyline done this shift before med given. Action: Assessed for SI/HI and self harm. Provided 1:1. Encouraged groups and spending time out of room. Administered meds. Utilized teaching opportunites. Response: Denies SI, Irritability noted, affect restricted, no c/o pain. Appetite good. FS @ 1700 109, FS @ 2100 334 after eating two ice cream and rice krispy treat. Resident aware. Patient requested and received ativan 1 mg prn @ 1945 for anxiety. VSSA this shift. Loraine Serna RN 03/31/2011 220 * Plan of Care - Cece Dominique RN - 03/31/2011 1050 EST Active Multi-Disciplinary problems: ALTERED THOUGHT PROCESSES [547175] (03/22/11) 07-1100 Data: Depression- pt affect is blunted; mood is not great; seems irritated by attempts at interaction by this financial writer and is avoidant, appetite is okay; pt states he slept but reports needing ambien twice; Action: begin to build nurse/patient treatment alliance, monitor for safety on the unit; assess SI/SH/mood/affect Encouraged pt to shower; Response: pt attended group this morning as well as ate breakfast in the kitchen; Cece Dominique RN 03/31/2011 10:50 * Plan of Care - Abbi Nash RN - 03/31/2011 0635 EST Problem: ALTERATION IN SLEEP Goal: Reports Nightly Sleep, Duration And Quality Intervention: Document duration, quality of sleep and reasons Active Multi-Disciplinary problems: FALL RISK [356535] (03/22/11) ALTERED THOUGHT PROCESSES [117531] (03/22/11) ALTERATION IN SLEEP [392018] (03/23/11) ANXIETY [784021] (03/24/11) Data: Depression, s/p OD. Depressed, ECT Action: Routine observations, assessed for s/s pain, sleep, depression. Offered supportive interaction prn. Medicated with repeat dose of Ambien 10 mg at 0040 at patient request. Response: Slept after 0100 without further complaints of inability to sleep. Total, 5+hours. Pleasant on brief interaction, able to make his wishes known appropriately and appreciated the effort on my part. Denies pain. Mood stable. Good effect with extra dose of Ambien. Abbi Nash RN 03/31/2011 6:32 * Plan of Care - Sherman Pabon RN - 03/30/2011 2694 EST Problem: ALTERED THOUGHT PROCESSES Goal: Desires Improvement In Ability To Think & Concentrate Outcome: Ongoing ALTERED THOUGHT PROCESSES [890190] (03/22/11) Data: Locus of harm level 3. Sleeping at beginning of shift. Irritable after waking. Denies pain. Patient's mood depressed. Patient states he feels empty and hopeless. Patient reports feelings of worthlessness. Reports he wishes he could be more independent here, I don't even do my own glucose monitoring. Less isolative. Meal in room 325. Watched movie with other patients. Later on phone with daughter. Hung up on daughter abruptly. Action: Monitor for safety. Routine observation. One to one offered. Activity encouraged. [place] encouraged. Ambien given at 2156 per patient request. Response: Patient remains safe. Patient less irritable later in shift. Poor self talk and negative outlook on life. Patient requested and changed linens. Continued to watch movie in room 325. Sherman Pabon RN 03/30/2011 22:04 * Plan of Care - Arthur Valenzuela RN - 03/30/2011 1456 EST Problem: ALTERED THOUGHT PROCESSES Goal: Effective communication and interaction with others Data: Patient slept in late, woke up after 1030. Withdrawn, guarded, depressed mood and restricted affect. Ate in kitchen, not interacting with others. Ate lunch when it arrived on the unit. Did socialize with other patient [place] for some time, patient was expressing negative thoughts on pet therapy and [place] was encouraging him on the subject. Patient irritable at times with low threshold of frustration, sighed and muttered when he went to use the insulin pen and the cap was on. Stated that anxiety was about the same, requested ativan. Blood sugar 125 in morning, 257 at lunch. Action: Patient monitored for mood, behavior, safety, pain. Short 1:1 supports as tolerated. Given medication as ordered. Patient given 7 units of insulin with lunch. Ativan given. Additional needs provided. Response: Patient's mood and behavior stable during the shift. Patient compliant with medications. Asleep after ativan. Will continue to monitor and assess. ARTHUR VALENZUELA RN 03/30/2011 14:47 * Plan of Care - Musa Yuen - 03/30/2011 0700 EST Problem: ALTERATION IN SLEEP Goal: Informs Staff If Unable To Sleep Outcome: Ongoing Data: pt awake at start of shift and very talkative with peer ([place]). Asleep shortly after midnight. Awake briefly x1 otherwise appeared to sleep soundly throughout the night. Action: monitor on routine observations for safety. Response: pt remains safe on the unit. Slept about 7 hours this shift. MUSA YUEN RN 03/30/2011 6:53 * Plan of Care - Dahlia Hernández - 03/29/20112000 EST Active Multi-Disciplinary problems: FALL RISK [138494] (03/22/11) ALTERED THOUGHT PROCESSES [365856] (03/22/11) ALTERATION IN SLEEP [155295] (03/23/11) ANXIETY [364879] (03/24/11) Data: Pt spent time in 325 reading what looked like the bible. Ate supper with peers, f.s. Of 138 before supper so no insulin needed. H.S. Finger stick of 344, H.O. Notified via text page. While watching a movie with peers pt was seen eating 2 puddings, popcorn and a rice crispies treat. , Staff have commented on how he seems more pleasant. Request for prn ambien 10 mg @ 2200 (given) along with standing order medications. Action: offer 1:1 counseling, listen to Concerns, support pts needs during course of ect. Medications as ordered. Response: Very quiet, seems placid, apparently enjoying the film experience with peers. Dahlia Hernández RN 03/29/2011 20:02 * Plan of Care - Arthur Valenzuela RN - 03/29/2011 7145 EST Problem: ALTERED THOUGHT PROCESSES Goal: Effective communication and interaction with others Data: Patient slept in. Then up for breakfast in kitchen, no socialization noted, then back to bed.Up again for lunch, ate in kitchen among peers. Irritable, frustrated when attempted to perform lunch time finger stick. Ate full meal, afterwards had numerous complaints about the seafood risotto. Patient appeared to have social discomfort, after discussing the poor food patient appeared to lack the energy to continue the conversation. Was sitting in the kitchen with empty tray in front of him, tv on but stated he was not watching it, for approximately 15 minutes. Reported anxiety but would not elaborate. Action: Patient monitored for mood, behavior, safety, pain. 1:1 interactions as tolerated. Medications given as ordered. Ativan given. Additional needs provided. Response: Patient less irritable as day progressed but remained with depressed mood, restricted in affect. Isolative, withdrawn. Again asleep after ativan. Will continue to monitor and assess. ARTHUR VALENZUELA RN 03/29/2011 14:40 * Plan of Care - Musa Yuen - 03/29/2011 0644 EST Problem: ALTERATION IN SLEEP Goal: Informs Staff If Unable To Sleep Outcome: Ongoing Data: pt asleep at start of shift and appeared to sleep soundly throughout the night. Action: monitor on routine observations for safety. Response: pt remains safe on the unit. Slept about 7.5 hours this shift. MUSA YUEN RN 03/29/2011 6:42 * Plan of Care - Edie Mobley - 03/28/20112 EST Problem: ANXIETY Goal: Verbalizes Ways To Manage Anxiety Outcome: Ongoing Active Multi-Disciplinary problems: FALL RISK [934728] (03/22/11) ALTERED THOUGHT PROCESSES [129704] (03/22/11) ALTERATION IN SLEEP [089922] (03/23/11) ANXIETY [860401] (03/24/11) Data: Pt was out of his room, in the milieu most of shift. He ate in the milieu and socialized. He rode the exercise bike for a while. He spent time in a group. He stated to this financial writer it was a little odd because it was on addiction. He said he has no addiction issues. Pt called his daughter. Pt states he is not getting enough food at his meals. He was distressed at the size of the salads on thetrays. Pt cooperative but somewhat negative. Pt states he is depressed. Pt's daughter called and was pleased that last night her father asked how others were doing instead of just talking about himself. Action: Short, frequent 1 to 1 checks with pt for support. Medications given as ordered. Pain assessment done. Safety assessment done. Response: Pt denies pain. He denies SI/HI. FS before dinner was 181. 5 units of Aspart was given. Pt FS at HS was 214. Pt reports being confused as to why his blood sugar is so high when her feels heeats much less here. Pt compliant with medications ordered. Pt spoke with his daughter in the evening. Talked for about 45 min. Ativan PRN given at 1606 and 1923 for anxiety, agitation. Medication effective. Pt became less guarded and more pleasant as the shift went on.Ambien given at 2140 for sleep.Pt remains safe on the unit. EDIE MOBLEY RN 03/28/2011 20:59 * Plan of Care - Meghan Valladares RN - 03/28/2011 8698 EST Problem: ALTERED THOUGHT PROCESSES Goal: Effective communication and interaction with others Outcome: Met This Shift Data: Ct out of room at start of shift and ate breakfast in the dining room with peers. Ct returnedto bed after breakfast. He denied and complaints of sleep but stated that he still felt tired and wanted to rest. He denied pain, SI, and HI. Action: Monitored for safety, shift psych assessment, supportive interactions, encouraged ADL's, encouraged participation in milieu, administered medications, monitored for medication side-effects, assessed additional needs throughout the shift Response: Ct received medications late due to having to wait for them from the pharmacy. Ct took all medications and continued to rest in bed until lunch. Ct did not attend groups but did eat lunch in dining room and socialized with peers. He was pleasant and cooperative on interaction throughout the shift and denied needs throughout the shift. BGFS at breakfast was 116 and lunch was 264. Meghan Garrido RN 03/28/2011 14:12 * Plan of Care - Abbi Nash RN - 03/28/2011 0568 EST Problem: ALTERATION IN SLEEP Goal: Reports Nightly Sleep, Duration And Quality Intervention: Document duration, quality of sleep and reasons Active Multi-Disciplinary problems: FALL RISK [727416] (03/22/11) ALTERED THOUGHT PROCESSES [252579] (03/22/11) ALTERATION IN SLEEP [135619] (03/23/11) ANXIETY [797629] (03/24/11) Data: Depression, labile mood. Action: Frequent observations, assessed for s/s pain, sleep, mood. Offered supportive interaction at start of shift. Response: Denies pain or other problems tonight, In a good mood during brief interaction. No irritability seen. Slept through the night after 0000. Abbi Nash RN 03/28/2011 5:29 * Plan of Care - Angeline Naty R - 03/27/2011 495 EST Problem: ALTERED THOUGHT PROCESSES Goal: Effective communication and interaction with others Active Multi-Disciplinary problems: FALL RISK [894367] (03/22/11) ALTERED THOUGHT PROCESSES [338606] (03/22/11) ALTERATION IN SLEEP [229638] (03/23/11) ANXIETY [078519] (03/24/11) Data: Pt. Has been calmer this elaina w/o sarcasm and/or verbal assaults. He is mostly flat/depressed.He spoke to me at length about his life, getting a little confused about dates and places but generally was logical and goal directed. He expressed much remorse about his life (not focusing/working hard enough, not spending time with his gisell.) Pt acknowledges having probs with his job prior to 's illness and . He ate well and was perseverative briefly about not having enough clothing andfood. He did speak of his limited $ resources and lack of planning for shelter during his life. Pt. Was encouraged to shower (1 task at a time) which he did. He is easily overwhelmed and has difficulty prioritizing tasks. Gisell. Called and was updated about change in med doses today, as well as pt.'s condition this elaina. Action: 1:1 and freq. Observation. Ambien prn at HS given. Response: Better elaina. Depressed. Naty Marcus RN 03/27/2011 21:24 Pt. Had c/o H.A. And asked for Ativan. He later told me that he didn't really have a H.A. But just wanted to see what medicine he could get. Pt. Denied h/o substance abuse but wanted something like Hydrocodone that would make me feel better. * Plan of Care - Juana Peña - 03/27/2011 1523 EST Problem: ANXIETY Goal: Free From Restraint Events Active Multi-Disciplinary problems: FALL RISK [977639] (03/22/11) ALTERED THOUGHT PROCESSES [043755] (03/22/11) ALTERATION IN SLEEP [887744] (03/23/11) ANXIETY [325196] (03/24/11) Data: Patient was awake this AM, appeared calm and pleasant. Allowed FS, result was 162 this AM, nosupplemental given due to patient's NPO status. Patient went willingly to ECT procedure. Returned to the unit around 11. Patient returned without complaint, denied pain at this time. At 12 FS was 227, at this time patient began to become increasingly agitated. He argued with this financial writer about his blood sugar and was demanding to know why his value was so high if he hadn't eaten anything all day. This financial writer was unable to explain anything to this patient because he did not allow this financial writer to talk. He then slammed the door and told this financial writer to leave. Patient fell asleep after this and slept until about 1420. He awoke at this time and ate his lunch. After lunch patient continued to be rude to this financial writer. He had told the MHT to screw off! when she offered to help him fill out his menu. He then refused VS from then MHT. This financial writer went in and was able to get a set of vitals. VSMarcella Zimmer made aware. AM medications gave at 1430 along with PRN Ativan. AM hydrodiuril and corgard help due to blood pressure value (122/86, HR 96). Patient was given 5 units of Novolog for lunch coverage and FS value of 224 at 1451. Patient continued to be irritable with staff. He would not explainwhy he was feeling so awful. He declined this financial writer's offer to assist him with ordering more food, even though he remarked over and over that he has eaten nothing all day. Patient ate entire tray (1 large vegetable enchilada, small salad, milk). He states that amount of food wouldn't feed a rabbit. Patient stated this isn't real, none of this is real, I should just right here. He wouldnot elaborate with this financial writer about any of his comments. Patient walked about the unit and made various remarks about other patients (poking fun and making faces when speaking of them Look at that boy with his laptop and Ipod. When offered that patient could bring in his own electronic devices he made a noise of disgust. Patient was seen in art group this afternoon. Action: Attempted to engage with patient. Offered medications per MD order. Assessed for changes and continued to monitor on frequent checks. Response: Patient remained safe while on the unit, will continue to monitor. Juana Peña RN 03/27/2011 15:10 * Anesthesia Post-Pro - Chaz Fofana MD - 03/27/2011 1118 EST Post Anesthesia Evaluation Note Date of Service: 03/27/2011 Shahnaz Santiago, a 60 y.o. year old male has received MAC He has been evaluated, assessed and discharged from anesthesia care with stable cardiorespiratory function and easily arousable mental status. The last set of recorded vital signs and pain rating were reviewed: Temp: 36.5 ??C (97.7 ??F) (03/27/11 1016), Heart Rate: 72 BPM (03/27/11 111), BP: 109/71 mmHg (03/27/11 1115), Resp: 14 (03/27/11 111), SpO2: 97 % (03/27/11 111),Numeric Pain Level (Scale 1-10): 0 Shahnaz Santiago participated in this evaluation unless otherwise noted. His pain, nausea and vomiting have been managed and his body temperature and fluid balance have been restored. Additional monitoring and assessment needs have been addressed. If present, any postoperative events are documented below. If the regional block for postoperative analgesia was intended to last greater than 48 hours, Shahnaz Santiago will be followed by the Acute Pain Service. CHAZ FOFANA MD 03/27/2011 11:18 * Anesthesia Pre-Eval - Elizabeth Martin - 03/27/2011 1004 EST Anesthesia ECT Pre-Evaluation Name: SHAHNAZ SANTIAGO : 1950 Date: 03/27/2011 Age: 60 y.o. No Known Allergies Patient Active Problem List Diagnoses ??? Diabetes mellitus No outpatient prescriptions have been marked as taking for the 03/22/11 encounter (Hospital Encounter) with Sajan Stanford MD. Vital Signs: BP 111/73 Pulse 90 Temp(Src) 36.6 ??C (97.9 ??F) (Tympanic) Resp 20 Ht 185.4 cm (72.99) Wt 101.969 kg (224 lb 12.8 oz) BMI 29.67 kg/m2 SpO2 98% Fasting Status Confirmed: Yes Airway Evaluation: Mallampati: 2 Mouth Opening: Normal Jaw Thrust: Normal T-M Distance: Neck: ROM Normal Teeth: Full Dentures ASA Physical Status: III Anesthesia Consent obtained on a separate document. See Anesthesia Consent form for details. Elizabeth Martin CRNA 03/27/2011 * ECT Report - Sajan Stanford MD - 03/27/2011 0954 EST Psychiatry Procedure Note Title of Procedure: Electroconvulsive Therapy Date Performed: 03/27/2011 Time Performed: 1000 Treatment Number: 1 Treatment Type: Index Treatment Visit: Inpatient Performed by: SAJAN Manzanares MD, personally performed this procedure in its entirety. Indications and/or Provisional Diagnosis: 296.33: Major Depressive Disorder, severe, without Psychotic features Consent: Written consent was obtained from patient/guardian after being informed of the risks, benefits and alternatives. Time Out: A time-out was completed prior to procedure verifying correct patient, procedure, settings and site. Patient's identification was Verbal;Armband verified, the consent for Right Unilateral site and No the setting of the ECT machine was verified by NAHUN Santiago and Dr. Sajan Stanford Procedure Technique/Description of Procedure: Electrode Placement: Right Unilateral Dosing Protocol: 0.3 ms Pulse-width Protocol ([facility]) Pulse width: 0.3 msec X 2 Frequency: 20 Hz X 2 Duration: 1 sec ; 2 sec Current: 800 mA X 2 Type of Anesthesia/Sedation/Doses Induction Agent: Dose: 50 mg Other Anesthetic: methohexital Seizure Duration: Peripheral: 32 sec Electrical: 36 sec Unless otherwise noted, there was no blood loss, specimens removed, cultures obtained, or drains retained. Subjective: I spoke with his daughter with patient in room--she was not sure she wanted him to be treated today. Following my explanation of the procedure and my recommendation to proceed, his daughter agreed to the procedure. Patient had very limited interaction with me. Objective: Sad, flat affect. No spontaneous speech/smiling. Awake and alert. Cooperative. MMSE: 26/27 MADRS: 43 Cog: A6/R6 Post Procedure Diagnosis and Findings: 296.33: Major Depressive Disorder, severe, without Psychoticfeatures Complications: None Plan: Continue RUL ECT at: 0.3/50/5800. SAJAN STANFORD MD 03/27/2011 9:55 * Plan of Care - Abbi Nash RN - 03/27/2011 0637 EST Problem: ALTERATION IN SLEEP Goal: Reports Nightly Sleep, Duration And Quality Intervention: Document duration, quality of sleep and reasons Active Multi-Disciplinary problems: FALL RISK [[id number]] (03/22/11) ALTERED THOUGHT PROCESSES [471183] (03/22/11) ALTERATION IN SLEEP [362727] (03/23/11) ANXIETY [503540] (03/24/11) Data: Diabetes Mellitis, depressed, ECT Action: Frequent observations continued, assessed for s/s pain, sleep, mood. Offered supportive interaction and reminded him of ECT and NPO status in am. EKG done at 0600. Saline lock flushed, patentat 0145. VS taken, FS done (195). HO contacted and no further treatment ordered. She said she will discuss possible hs sliding scale with his team. Response: Mood was labile early in the shift as he was upset at his door being opened so often at the start. He calmed and slept until 0130 and again after 0200. When we woke him at 0600 he was more agreeable and allowed the EKG to be done. Slept 5.5 hours intermittently. Denies pain or thoughts ofSI. Remains depressed. Abbi Nash RN 03/27/2011 6:33 * Plan of Care - Dahlia Hernández - 03/26/2011 1855 EST Active Multi-Disciplinary problems: FALL RISK [[id number]] (03/22/11) ALTERED THOUGHT PROCESSES [013584] (03/22/11) ALTERATION IN SLEEP [053824] (03/23/11) ANXIETY [692827] (03/24/11) Data: Pt remains dismayed and negative about everything about him. R.N. Visited with pt and tried to find an activity ([employer] ) with no interest by pt. Ativan 1.0??mg P0 @ 1954 Hs, finger stick of 259. Saline loc placed in l forearm @ 2099. watching T.V. With peers after 2099. Action: offer 1:1 counseling, listen to Concerns, offer Support. NP0 after midnight, no benzos after 1999. ect in the a.m. Response: Seems willing to try ect despite feelings of despair, Dahlia Hernández RN 03/26/2011 18:55 * Plan of Cyndie - Ervin Osorio RN - 03/26/2011 0828 EST Problem: ALTERED THOUGHT PROCESSES Goal: Effective communication and interaction with others Outcome: Ongoing Patient Active Problem List Diagnoses ??? Diabetes mellitus Data: Pt cooperative and med compliant. No eye contact with this RN and answered questions with oneword in low tones. Ate breakfast in Dining room. Action: Frequent observation. Supportive 1:1 as tolerated by pt. Reinforce diabetes education. Response: Pt not argumentative this am, but not willing to engage much. Ervin Osorio RN 03/26/2011 8:54 * Plan of Care - Mega Deleon RN - 03/26/2011 0625 EST Problem: ALTERATION IN SLEEP Goal: Reports Nightly Sleep, Duration And Quality Outcome: Ongoing Active Multi-Disciplinary problems: FALL RISK [043165] (03/22/11) ALTERED THOUGHT PROCESSES [167156] (03/22/11) ALTERATION IN SLEEP [102086] (03/23/11) ANXIETY [850344] (03/24/11) Data: Patient appeared to sleep a total of 7.25 hours this shift. No s/s of distress or discomfort noted. Action: Maintained on frequent observation for safety. Response: Patient remained safe this shift. MEGA DELEON RN 03/26/2011 6:24 * Plan of Care - Cinthya Zayas RN - 03/25/20112004 EST Problem: ALTERED THOUGHT PROCESSES Goal: Effective communication and interaction with others Outcome: Ongoing Active Multi-Disciplinary problems: FALL RISK [045204] (03/22/11) ALTERED THOUGHT PROCESSES [978039] (03/22/11) ALTERATION IN SLEEP [104555] (03/23/11) ANXIETY [[id number]] (03/24/11) Data: Pt using laptop at start of shift. Pt with increased negative-thought pattern since yesterday. When encouraged to go to group pt with irritated affect and tone said, that's all they are doing playing a game! however yesterday when playing a video game pt appeared to enjoy himself. Pt had been given a diabetes booklet by the day nurse yesterday when asked if he had finished reading that (pt had been fliping the book through hands) pt angrily states.. I had a tuna fish sandwich, carrots,and chicken noodle soup for diner! How am I supposed to survive off that Action: Encouraged group, assessed pt's coping skills, reviewed menu with pt, when pt agitated and help rejecting gave pt space but let know available if he changed his mind, frequent check ins. Response: Pt help rejecting, and seems to want to try to draw others into an argument, appears frustrated when this nurse does not engage in negative comments, tangential with complaints, pt has difficult time focusing one one topic and is unable to problem solve. Encouraged pt to write down items he felt needed to be addressed and work on resolving them one at time as pt seemed easily overwhelmed with racing negative thought distortions... Pt attempted to watch ECT video but did not complete it as the fridge is making too much noise in the kitchen where pt was watching the video. Main topics pt expresses anxiety over were: Food, blood sugar. Cinthya Zayas RN 03/25/2011 19:31 * Plan of Care - David Bustillo - 03/25/2011 0197 EST Problem: ALTERED THOUGHT PROCESSES Goal: Desires Improvement In Ability To Think & Concentrate Outcome: Ongoing Active Multi-Disciplinary problems: FALL RISK [[id number]] (03/22/11) ALTERED THOUGHT PROCESSES [270411] (03/22/11) ALTERATION IN SLEEP [566061] (03/23/11) ANXIETY [294043] (03/24/11) Data: Pt has been in a better mood throughout this shift spending a lot of time on the phone and computer. Pt reports good sleep and has eaten well. He is clearer in conversation and noticabely less grumpy. Pt accepted all of his medications and finger sticks. Spoke of his belief that he is bruising too easily and showed this financial writer a couple of bruises on his right forearm, which was the sight ofhis IV. Referred him to his treatment team. Action: Monitored for safety. 1:1 supportive nursing interaction. Response: Pt remains safe on the unit. Will continue to monitor. DAVID BUSTILLO RN 03/25/2011 14:44 * Plan of Care - Mega Deleon RN - 03/25/2011 0622 EST Problem: ALTERATION IN SLEEP Goal: Reports Nightly Sleep, Duration And Quality Intervention: Document duration, quality of sleep and reasons Active Multi-Disciplinary problems: FALL RISK [101478] (03/22/11) ALTERED THOUGHT PROCESSES [452834] (03/22/11) ALTERATION IN SLEEP [277401] (03/23/11) ANXIETY [354151] (03/24/11) Data: Patient appeared to sleep a total of 8 hours without waking. No s/s of distress or discomfortnoted. Action: Maintained on frequent observation for safety. Response: Patient remained safe this shift. MEGA DELEON RN 03/25/2011 6:21 * Plan of Care - Cinthya Zayas RN - 03/24/2011 2317 EST Problem: ANXIETY Goal: Implements Measures To Reduce Anxiety Outcome: Ongoing Active Multi-Disciplinary problems: FALL RISK [881859] (03/22/11) ALTERED THOUGHT PROCESSES [282943] (03/22/11) ALTERATION IN SLEEP [142999] (03/23/11) ANXIETY [558534] (03/24/11) Data: Was reported that pt was able to shower, start laundry and have conversations with peers and staff, (improvement from prior day). Daughter (guardian) called and was pleased to hear about pts AM, daughter also stated she wants imaging done prior to ect and was encouraged to call back and speakwith Attending/SW in the AM. At start of shift pt showed signs of increasing anxiety. Pt ruminativeabout clothing repetitive verbally picking up clothing. Negative statements Friends (Engineering Drafter Dewayne) visited bringing some belongings in for pt. Taking back items that pt did not need. Action: Administered medication; encouraged groups; redirected conversation from ruminative thoughts; spoke with daughter, re oriented pt to unit ie favors ect. Response: Pt able to function, but remains anxious and ruminative. Cinthya Zayas RN 03/24/2011 23:04 * Plan of Care - Juana Peña - 03/24/2011 9258 EST Problem: ALTERED THOUGHT PROCESSES Goal: Desires Improvement In Ability To Think & Concentrate Active Multi-Disciplinary problems: FALL RISK [857666] (03/22/11) ALTERED THOUGHT PROCESSES [960099] (03/22/11) ALTERATION IN SLEEP [056262] (03/23/11) Data: Patient was much more calm overall today. He slept pretty well through the night (7 hours) but reports feeling a bit restless. He ate breakfast in the milieu with peers. FS this AM was 138 no supplemental insulin given. No reports of pain or distress this AM, VSS. Patient napped after breakfast, reporting that he feels a bit under the weather (weak, tired, etc). He appears diaphoretic even though room temperature is fairly low. His skin is clammy and cool to the touch. Patient was awake at lunch. FS was 236 at 1200, patient was given 5 units of Novolog. Patient spent a while conversing with patient W.V in the kitchen during lunch. Patient was thankful that W.V offered him some extra clothing, as he continues to ruminate about his lack of wardrobe. Patient was able to shower this afternoon despite his anxiety surrounding this issue. He declined offer of PRN Ativan to assist with shower procedure, as he felt he could do it without being medicated. Patient feels he could be changedto voluntary status as he is committed to treatment and would like to get better. He denies S/I andvoices that he will remain on the unit (not an elopement risk). Less perseverative overall today, small improvements noted. Action: Engaged with patient, offered support and stabilization. Monitored for safety and continuedon frequent checks. Assessed for changes in condition/behaviour, offered medications per MD order. Continued to build upon therapeutic alliance and encouraged independence upon every interaction. Response: Patient remained safe while one on the unit, will continue to monitor behaviour. Juana Peña RN 03/24/2011 14:26 * Scanned Note-Null - Community Development Officer, Scan - 03/24/2011 1246 EST * Scanned Note-Null - Community Development Officer, Scan - 03/24/2011 1246 EST * Plan of Care - Matt Coats RN - 03/24/2011 0574 EST Problem: ALTERATION IN SLEEP Goal: Reports Nightly Sleep, Duration And Quality Outcome: Ongoing Active Multi-Disciplinary problems: FALL RISK [652767] (03/22/11) ALTERED THOUGHT PROCESSES [723464] (03/22/11) ALTERATION IN SLEEP [099776] (03/23/11) Data: Asked for an ativan tablet for anxiety at about 23:45. Followed recommendation to lie down and try to sleep after administration of the medication. In the very brief interaction, patient was directible and logical. He was asleep shortly after midnight and has continued to sleep until this writ ing. Action: Provide emotional support and monitor rest and sleep. Response: Meeting minimal daily sleep goal of 6.5 hours. Matt Coats RN 03/24/2011 5:50 * Plan of Cyndie - Juana Peña - 03/23/2011 6534 EST Problem: ALTERED THOUGHT PROCESSES Goal: Desires Improvement In Ability To Think & Concentrate Active Multi-Disciplinary problems: FALL RISK [783961] (03/22/11) ALTERED THOUGHT PROCESSES [227465] (03/22/11) ALTERATION IN SLEEP [937288] (03/23/11) Data: Patient attended pet therapy at the start of the shift. Following this group he retreated to his room and became incredibly anxious and perseverative. He was focused on his clothing and the fact that he only had two outfits available. Patient was unable to listen to this financial writer's reasoning angelica. He remained in his room until dinner, completely focused on his clothing. Patient did eat in the milieu with encouragement from this financial writer. His FS at 1700 was 260, patient received 7 units of Novolog. Patient returned to his room after dinner and continued to focus on the clothing and his shower. He reported that without clothes to change into he could not shower. Patient felt that the hospi tierra garb was completely inadequate and would not accept the fact that other patient's wore this same outfit. Patient was highly encouraged to watch the movie (Its A Wonderful Life) with peers. He sat and watched the entire movie. Patient accepted HS medications around 2044. After the movie he watched TV until 2244. He reported to this financial writer that he would be unable to sleep tonight, although he had not tried to lay down. He made it clear that he was interested in a sleep aid but was ok when told that he was not ordered one as of now. He may try Ativan later on tonight. Patient was much more clear after his HS Ativan. Anxiety and ruminative thought process was noted to have diminished almost completely. Patient was able to have a calm, coherent conversation with this financial writer. He spoke about things he needs to do in the future to get better. He was a bit more optimistic. He told this financial writer of the small community he lives in ([facility]) compared to [place], [place]. FS at HS [id number]. Patient wanted to eat a sandwich at this time, but was encouraged not to due to increased energy that it would provide, as well as, increased blood sugar. Patient did not seem to fully accept this education. He remains fixated on the fact that he will not sleep tonight. Action: Engaged with patient, offered support and stabilization. Monitored for safety and continuedon frequent checks. Assessed for changes in condition/behaviour, offered medications per MD order. Encouraged milieu activity. Educated patient on various topics. Response: Patient remained safe while on the unit, will continue to monitor. Juana Peña RN 03/23/2011 23:01 * Plan of Care - David Bustillo - 03/23/2011 1503 EST Problem: ALTERED THOUGHT PROCESSES Goal: Desires Improvement In Ability To Think & Concentrate Outcome: Ongoing Active Multi-Disciplinary problems: FALL RISK [765765] (03/22/11) ALTERED THOUGHT PROCESSES [039034] (03/22/11) ALTERATION IN SLEEP [279059] (03/23/11) Data: Pt was extremely negative during all interactions today. Pt was unable to see any aspect of asituation other than what was wrong with it. Pt appeared confused, very irritable, and found it hard to communicate his answers to staff questions. Attempted to complete admission database but was unable due to pt's inability. Assisted pt with filling out menu, which took a long period of time to do as pt was unable to focus. Repeated I'm not even here multiple times to himself. Pt was upset with all of the med's ordered and refused AM insulin (did accept lunchtime insulin). Vital signs showed high blood pressure. Finger sticks were 170 & 228 respectively. Isolated to his room for most of shift. Came out in the afternoon and ambulated hallway and spent time on computer. Accepted a phone call from a friend and appeared to talk over a ten to fifteen minute period. Around this time pt became less grumpy and even used the phrase thank you a couple of times, though with a restricted affect. Pt also initiated an attempt to fill out next days menu and asked for staff assistance. Action: Monitored for safety. 1:1 supportive nursing interaction. Response: Pt remains safe on the unit. Will continue to monitor. DAVID BUSTILLO RN 03/23/2011 14:50 * Plan of Care - Matt Coats RN - 03/23/2011 0672 EST Problem: ALTERATION IN SLEEP Goal: Informs Staff If Unable To Sleep Outcome: Ongoing Active Multi-Disciplinary problems: FALL RISK [966236] (03/22/11) ALTERED THOUGHT PROCESSES [656283] (03/22/11) ALTERATION IN SLEEP [564310] (03/23/11) Data: Patient was awake, anxious, confused and disorganized at change of shift. Was polite but pressured speech did not help his ability to communicate effectively. Patient was directible and oriented X 3. Complained of inability to sleep. On-call resident called for a one time order of Trazodone 25mg which was administered at about 00:00. Patient encouraged to lie down and allow the medication to work. Patient did so and fell asleep shortly thereafter. Action: Provide emotional support and ensure patient safety. Monitor rest and sleep. Communicate with physician per patient's inability to sleep. Response: Appeared to minimally meet daily sleep goal. Matt Coats RN 03/23/2011 6:22 * Plan of Care - Rema Whitehead RN - 03/22/2011 9869 EST Problem: ALTERED THOUGHT PROCESSES Goal: Desires Improvement In Ability To Think & Concentrate Outcome: Ongoing Active Multi-Disciplinary problems: FALL RISK [407095] (03/22/11) ALTERED THOUGHT PROCESSES [473052] (03/22/11) Data: Pt admitted to [facility] at approx dinner time. He agrees not to hurt himself and denies wantingto hurt anyone else. Pt is ruminative and confused. He is easily agitated and becomes stuck on small details. He reports that he has not been eating or drinking and that he is in danger of dehydration. Spoke with daughter on phone who reports pt has been adequately eating and drinking and that this is delusional. Pt is oriented X3. He is restless and unable to answer admission database questions. It is unclear if he comprehends his EE status, and he does not answer if he is in any physical pain despite being asked multiple times. FS on arrival pre dinner is 215, at hs 294, oral meds given at hs. Pt keeps repeating I have not done anything here. And I'm not even really here. over and over. He becomes very frustrated when presented with hs medications but eventually takes them begrudgingly. EKG done. Spoke with daughter via phone and she tells me that patient's medications were changed at [place] where Trilafon and Nortryptyline were added and since [place] visit pt has been increasingly confused and agitated. Daughter states that she has seen pt very depressed before but not this distressed and confused. She reports that pt lost his last year. Daughter Nkechi (see front page for contact info) is pt's legal guardian. Action: VS , height, weight, EE rights given, patient handbook, orientation to room, pt not able tocomplete rn database questions Response: pt is stable but confused, and chronically exasperated with health care tx Rema Whitehead, NAHUN 03/22/2011 21:56 documented in this encounter Plan of Treatment Pending Results Name Type Priority Associated Diagnoses Date /Time GLUCOSE, GLUCOMETER Lab Routine 03/22 18:07 EST ELEVATED GLUCOSE Lab Routine 03/22/20 11 19:08 EST GLUCOSE, GLUCOMETER Lab Routine 03/22 21:08 EST GLUCOSE, GLUCOMETER Lab Routine 03/23 8:43 EST GLUCOSE, GLUCOMETER Lab Routine 03/23 12:01 EST GLUCOSE, GLUCOMETER Lab Routine 03/23 16:57 EST GLUCOSE, GLUCOMETER Lab Routine 03/23 22:46 EST GLUCOSE, GLUCOMETER Lab Routine 03/24 9:07 EST GLUCOSE, GLUCOMETER Lab Routine 03/24 11:57 EST GLUCOSE, GLUCOMETER Lab Routine 03/24 16:52 EST GLUCOSE, GLUCOMETER Lab Routine 03/24 20:58 EST GLUCOSE, GLUCOMETER Lab Routine 03/25 9:24 EST GLUCOSE, GLUCOMETER Lab Routine 03/25 11:57 EST GLUCOSE, GLUCOMETER Lab Routine 03/25 16:53 EST GLUCOSE, GLUCOMETER Lab Routine 03/25 20:52 EST GLUCOSE, GLUCOMETER Lab Routine 03/26 8:10 EST GLUCOSE, GLUCOMETER Lab Routine 03/26 12:17 EST GLUCOSE, GLUCOMETER Lab Routine 03/26 17:17 EST GLUCOSE, GLUCOMETER Lab Routine 03/26 21:01 EST GLUCOSE, GLUCOMETER Lab Routine 03/27 1:41 EST GLUCOSE, GLUCOMETER Lab Routine 03/27 8:04 EST GLUCOSE, GLUCOMETER Lab Routine 03/27 11:52 EST GLUCOSE, GLUCOMETER Lab Routine 03/27 14:46 EST GLUCOSE, GLUCOMETER Lab Routine 03/27 17:11 EST GLUCOSE, GLUCOMETER Lab Routine 03/27 21:10 EST GLUCOSE, GLUCOMETER Lab Routine 03/28 8:15 EST GLUCOSE, GLUCOMETER Lab Routine 03/28 12:16 EST GLUCOSE, GLUCOMETER Lab Routine 03/28 17:14 EST GLUCOSE, GLUCOMETER Lab Routine 03/28 21:14 EST GLUCOSE, GLUCOMETER Lab Routine 03/29 7:52 EST GLUCOSE, GLUCOMETER Lab Routine 03/29 12:19 EST GLUCOSE, GLUCOMETER Lab Routine 03/29 17:06 EST GLUCOSE, GLUCOMETER Lab Routine 03/29 20:47 EST GLUCOSE, GLUCOMETER Lab Routine 03/30 0:13 EST GLUCOSE, GLUCOMETER Lab Routine 03/30 7:42 EST GLUCOSE, GLUCOMETER Lab Routine 03/30 11:53 EST GLUCOSE, GLUCOMETER Lab Routine 03/30 16:54 EST GLUCOSE, GLUCOMETER Lab Routine 03/30 20:58 EST GLUCOSE, GLUCOMETER Lab Routine 03/31 8:39 EST GLUCOSE, GLUCOMETER Lab Routine 03/31 11:29 EST GLUCOSE, GLUCOMETER Lab Routine 03/31 17:12 EST GLUCOSE, GLUCOMETER Lab Routine 03/31 20:47 EST GLUCOSE, GLUCOMETER Lab Routine 04/01 8:00 EST GLUCOSE, GLUCOMETER Lab Routine 04/01 11:54 EST GLUCOSE, GLUCOMETER Lab Routine 04/01 17:03 EST GLUCOSE, GLUCOMETER Lab Routine 04/01 21:19 EST GLUCOSE, GLUCOMETER Lab Routine 04/02 8:03 EST GLUCOSE, GLUCOMETER Lab Routine 04/02 10:09 EST GLUCOSE, GLUCOMETER Lab Routine 04/02 11:51 EST GLUCOSE, GLUCOMETER Lab Routine 04/02 16:50 EST GLUCOSE, GLUCOMETER Lab Routine 04/02 20:30 EST GLUCOSE, GLUCOMETER Lab Routine 04/03 7:53 EST GLUCOSE, GLUCOMETER Lab Routine 04/03 11:58 EST GLUCOSE, GLUCOMETER Lab Routine 04/03 16:51 EST GLUCOSE, GLUCOMETER Lab Routine 04/04 8:28 EST GLUCOSE, GLUCOMETER Lab Routine 04/04 11:12 EST GLUCOSE, GLUCOMETER Lab Routine 04/04 16:49 EST GLUCOSE, GLUCOMETER Lab Routine 04/04 20:50 EST GLUCOSE, GLUCOMETER Lab Routine 04/05 8:13 EST GLUCOSE, GLUCOMETER Lab Routine 04/05 11:52 EST GLUCOSE, GLUCOMETER Lab Routine 04/05 17:22 EST GLUCOSE, GLUCOMETER Lab Routine 04/05 21:37 EST GLUCOSE, GLUCOMETER Lab Routine 04/06 8:02 EST GLUCOSE, GLUCOMETER Lab Routine 04/06 12:06 EST GLUCOSE, GLUCOMETER Lab Routine 04/06 19:25 EST GLUCOSE, GLUCOMETER Lab Routine 04/06 21:21 EST GLUCOSE, GLUCOMETER Lab Routine 04/07 7:36 EST GLUCOSE, GLUCOMETER Lab Routine 04/07 11:46 EST GLUCOSE, GLUCOMETER Lab Routine 04/07 17:02 EST GLUCOSE, GLUCOMETER Lab Routine 04/07 20:46 EST GLUCOSE, GLUCOMETER Lab Routine 04/07 23:56 EST GLUCOSE, GLUCOMETER Lab Routine 04/08 8:08 EST GLUCOSE, GLUCOMETER Lab Routine 04/08 11:41 EST GLUCOSE, GLUCOMETER Lab Routine 04/08 17:22 EST GLUCOSE, GLUCOMETER Lab Routine 04/08 21:04 EST GLUCOSE, GLUCOMETER Lab Routine 04/09 7:59 EST GLUCOSE, GLUCOMETER Lab Routine 04/09 10:49 EST GLUCOSE, GLUCOMETER Lab Routine 04/09 12:11 EST GLUCOSE, GLUCOMETER Lab Routine 04/09 17:29 EST GLUCOSE, GLUCOMETER Lab Routine 04/09 21:20 EST GLUCOSE, GLUCOMETER Lab Routine 04/10 7:59 EST GLUCOSE, GLUCOMETER Lab Routine 04/10 11:55 EST GLUCOSE, GLUCOMETER Lab Routine 04/10 17:00 EST GLUCOSE, GLUCOMETER Lab Routine 04/10 21:09 EST GLUCOSE, GLUCOMETER Lab Routine 04/11 7:58 EST GLUCOSE, GLUCOMETER Lab Routine 04/11 17:14 EST GLUCOSE, GLUCOMETER Lab Routine 04/11 20:57 EST GLUCOSE, GLUCOMETER Lab Routine 04/12 7:34 EST GLUCOSE, GLUCOMETER Lab Routine 04/12 11:54 EST GLUCOSE, GLUCOMETER Lab Routine 04/12 17:00 EST GLUCOSE, GLUCOMETER Lab Routine 04/12 20:47 EST GLUCOSE, GLUCOMETER Lab Routine 04/13 7:39 EST GLUCOSE, GLUCOMETER Lab Routine 04/13 11:24 EST GLUCOSE, GLUCOMETER Lab Routine 04/13 17:14 EST GLUCOSE, GLUCOMETER Lab Routine 04/13 21:12 EST GLUCOSE, GLUCOMETER Lab Routine 04/13 22:35 EST GLUCOSE, GLUCOMETER Lab Routine 04/14 7:58 EST GLUCOSE, GLUCOMETER Lab Routine 04/14 12:09 EST GLUCOSE, GLUCOMETER Lab Routine 04/14 16:49 EST GLUCOSE, GLUCOMETER Lab Routine 04/14 22:27 EST GLUCOSE, GLUCOMETER Lab Routine 04/15 2:06 EST GLUCOSE, GLUCOMETER Lab Routine 04/15 7:42 EST GLUCOSE, GLUCOMETER Lab Routine 04/15 11:47 EST GLUCOSE, GLUCOMETER Lab Routine 04/15 16:52 EST GLUCOSE, GLUCOMETER Lab Routine 04/15 21:17 EST GLUCOSE, GLUCOMETER Lab Routine 04/16 8:05 EST GLUCOSE, GLUCOMETER Lab Routine 04/16 11:05 EST GLUCOSE, GLUCOMETER Lab Routine 04/16 17:32 EST GLUCOSE, GLUCOMETER Lab Routine 04/16 20:39 EST GLUCOSE, GLUCOMETER Lab Routine 04/17 8:19 EST GLUCOSE, GLUCOMETER Lab Routine 04/17 12:14 EST GLUCOSE, GLUCOMETER Lab Routine 04/17 17:05 EST GLUCOSE, GLUCOMETER Lab Routine 04/17 21:48 EST GLUCOSE, GLUCOMETER Lab Routine 04/18 8:01 EST GLUCOSE, GLUCOMETER Lab Routine 04/18 13:34 EST GLUCOSE, GLUCOMETER Lab Routine 04/18 16:51 EST GLUCOSE, GLUCOMETER Lab Routine 04/18 21:23 EST GLUCOSE, GLUCOMETER Lab Routine 04/19 8:15 EST GLUCOSE, GLUCOMETER Lab Routine 04/19 12:05 EST GLUCOSE, GLUCOMETER Lab Routine 04/19 16:48 EST GLUCOSE, GLUCOMETER Lab Routine 04/19 20:52 EST GLUCOSE, GLUCOMETER Lab Routine 04/20 7:54 EST GLUCOSE, GLUCOMETER Lab Routine 04/20 11:53 EST GLUCOSE, GLUCOMETER Lab Routine 04/20 16:52 EST GLUCOSE, GLUCOMETER Lab Routine 04/20 21:18 EST GLUCOSE, GLUCOMETER Lab Routine 04/21 8:19 EST GLUCOSE, GLUCOMETER Lab Routine 04/21 12:17 EST GLUCOSE, GLUCOMETER Lab Routine 04/21 17:25 EST GLUCOSE, GLUCOMETER Lab Routine 04/21 21:02 EST GLUCOSE, GLUCOMETER Lab Routine 04/22 8:02 EST GLUCOSE, GLUCOMETER Lab Routine 04/22 11:48 EST GLUCOSE, GLUCOMETER Lab Routine 04/22 16:57 EST GLUCOSE, GLUCOMETER Lab Routine 04/22 20:51 EST GLUCOSE, GLUCOMETER Lab Routine 04/23 8:19 EST GLUCOSE, GLUCOMETER Lab Routine 04/23 9:26 EST GLUCOSE, GLUCOMETER Lab Routine 04/23 12:08 EST GLUCOSE, GLUCOMETER Lab Routine 04/23 17:17 EST GLUCOSE, GLUCOMETER Lab Routine 04/23 20:54 EST GLUCOSE, GLUCOMETER Lab Routine 04/24 8:13 EST GLUCOSE, GLUCOMETER Lab Routine 04/24 11:52 EST GLUCOSE, GLUCOMETER Lab Routine 04/24 17:17 EST GLUCOSE, GLUCOMETER Lab Routine 04/24 20:52 EST GLUCOSE, GLUCOMETER Lab Routine 04/25 8:19 EST GLUCOSE, GLUCOMETER Lab Routine 04/25 13:22 EST GLUCOSE, GLUCOMETER Lab Routine 04/25 17:05 EST GLUCOSE, GLUCOMETER Lab Routine 04/25 20:51 EST GLUCOSE, GLUCOMETER Lab Routine 04/26 7:54 EST GLUCOSE, GLUCOMETER Lab Routine 04/26 11:53 EST GLUCOSE, GLUCOMETER Lab Routine 04/26 16:54 EST GLUCOSE, GLUCOMETER Lab Routine 04/26 21:57 EST GLUCOSE, GLUCOMETER Lab Routine 04/27 7:51 EST GLUCOSE, GLUCOMETER Lab Routine 04/27 11:53 EST GLUCOSE, GLUCOMETER Lab Routine 04/27 16:59 EST GLUCOSE, GLUCOMETER Lab Routine 04/27 20:52 EST GLUCOSE, GLUCOMETER Lab Routine 04/28 7:45 EST GLUCOSE, GLUCOMETER Lab Routine 04/28 12:21 EST GLUCOSE, GLUCOMETER Lab Routine 04/28 17:05 EST GLUCOSE, GLUCOMETER Lab Routine 04/28 20:59 EST GLUCOSE, GLUCOMETER Lab Routine 04/29 8:14 EST GLUCOSE, GLUCOMETER Lab Routine 04/29 11:52 EST GLUCOSE, GLUCOMETER Lab Routine 04/29 16:46 EST GLUCOSE, GLUCOMETER Lab Routine 04/29 21:03 EST GLUCOSE, GLUCOMETER Lab Routine 04/30 8:32 EST GLUCOSE, GLUCOMETER Lab Routine 04/30 12:22 EST GLUCOSE, GLUCOMETER Lab Routine 04/30 16:55 EST GLUCOSE, GLUCOMETER Lab Routine 04/30 21:04 EST GLUCOSE, GLUCOMETER Lab Routine 05/01 8:01 EST GLUCOSE, GLUCOMETER Lab Routine 05/01 12:03 EST GLUCOSE, GLUCOMETER Lab Routine 05/01 16:57 EST GLUCOSE, GLUCOMETER Lab Routine 05/01 20:51 EST GLUCOSE, GLUCOMETER Lab Routine 05/02 8:30 EST GLUCOSE, GLUCOMETER Lab Routine 05/02 11:55 EST GLUCOSE, GLUCOMETER Lab Routine 05/02 17:25 EST GLUCOSE, GLUCOMETER Lab Routine 05/02 21:13 EST GLUCOSE, GLUCOMETER Lab Routine 05/03 8:20 EST GLUCOSE, GLUCOMETER Lab Routine 05/03 11:59 EST GLUCOSE, GLUCOMETER Lab Routine 05/03 16:35 EST GLUCOSE, GLUCOMETER Lab Routine 05/03 21:51 EST GLUCOSE, GLUCOMETER Lab Routine 05/04 8:14 EST GLUCOSE, GLUCOMETER Lab Routine 05/04 11:49 EST GLUCOSE, GLUCOMETER Lab Routine 05/04 17:01 EST GLUCOSE, GLUCOMETER Lab Routine 05/04 21:03 EST GLUCOSE, GLUCOMETER Lab Routine 05/05 8:03 EST Scheduled Orders Name Type Priority Associated Diagnoses Orde r Schedule GLUCOSE, GLUCOMETER Lab Routine For m edications that can be administered at any time during the hospitalization for visit such as immunizations. for 1 Occurrences starting 03/22/2011 ELEVATED GLUCOSE Lab Routine For medi cations that can be administered at any time during the hospitalization for visit such as immunizations. for 1 Occurrences starting 03/22/2011 GLUCOSE, GLUCOMETER Lab Routine For m edications that can be administered at any time during the hospitalization for visit such as immunizations. for 1 Occurrences starting 03/22/2011 GLUCOSE, GLUCOMETER Lab Routine For m edications that can be administered at any time during the hospitalization for visit such as immunizations. for 1 Occurrences starting 03/23/2011 GLUCOSE, GLUCOMETER Lab Routine For m edications that can be administered at any time during the hospitalization for visit such as immunizations. for 1 Occurrences starting 03/23/2011 GLUCOSE, GLUCOMETER Lab Routine For m edications that can be administered at any time during the hospitalization for visit such as immunizations. for 1 Occurrences starting 03/23/2011 GLUCOSE, GLUCOMETER Lab Routine For m edications that can be administered at any time during the hospitalization for visit such as immunizations. for 1 Occurrences starting 03/23/2011 GLUCOSE, GLUCOMETER Lab Routine For m edications that can be administered at any time during the hospitalization for visit such as immunizations. for 1 Occurrences starting 03/24/2011 GLUCOSE, GLUCOMETER Lab Routine For m edications that can be administered at any time during the hospitalization for visit such as immunizations. for 1 Occurrences starting 03/24/2011 GLUCOSE, GLUCOMETER Lab Routine For m edications that can be administered at any time during the hospitalization for visit such as immunizations. for 1 Occurrences starting 03/24/2011 GLUCOSE, GLUCOMETER Lab Routine For m edications that can be administered at any time during the hospitalization for visit such as immunizations. for 1 Occurrences starting 03/24/2011 GLUCOSE, GLUCOMETER Lab Routine For m edications that can be administered at any time during the hospitalization for visit such as immunizations. for 1 Occurrences starting 03/25/2011 GLUCOSE, GLUCOMETER Lab Routine For m edications that can be administered at any time during the hospitalization for visit such as immunizations. for 1 Occurrences starting 03/25/2011 GLUCOSE, GLUCOMETER Lab Routine For m edications that can be administered at any time during the hospitalization for visit such as immunizations. for 1 Occurrences starting 03/25/2011 GLUCOSE, GLUCOMETER Lab Routine For m edications that can be administered at any time during the hospitalization for visit such as immunizations. for 1 Occurrences starting 03/25/2011 GLUCOSE, GLUCOMETER Lab Routine For m edications that can be administered at any time during the hospitalization for visit such as immunizations. for 1 Occurrences starting 03/26/2011 GLUCOSE, GLUCOMETER Lab Routine For m edications that can be administered at any time during the hospitalization for visit such as immunizations. for 1 Occurrences starting 03/26/2011 GLUCOSE, GLUCOMETER Lab Routine For m edications that can be administered at any time during the hospitalization for visit such as immunizations. for 1 Occurrences starting 03/26/2011 GLUCOSE, GLUCOMETER Lab Routine For m edications that can be administered at any time during the hospitalization for visit such as immunizations. for 1 Occurrences starting 03/26/2011 GLUCOSE, GLUCOMETER Lab Routine For m edications that can be administered at any time during the hospitalization for visit such as immunizations. for 1 Occurrences starting 03/27/2011 GLUCOSE, GLUCOMETER Lab Routine For m edications that can be administered at any time during the hospitalization for visit such as immunizations. for 1 Occurrences starting 03/27/2011 GLUCOSE, GLUCOMETER Lab Routine For m edications that can be administered at any time during the hospitalization for visit such as immunizations. for 1 Occurrences starting 03/27/2011 GLUCOSE, GLUCOMETER Lab Routine For m edications that can be administered at any time during the hospitalization for visit such as immunizations. for 1 Occurrences starting 03/27/2011 GLUCOSE, GLUCOMETER Lab Routine For m edications that can be administered at any time during the hospitalization for visit such as immunizations. for 1 Occurrences starting 03/27/2011 GLUCOSE, GLUCOMETER Lab Routine For m edications that can be administered at any time during the hospitalization for visit such as immunizations. for 1 Occurrences starting 03/27/2011 GLUCOSE, GLUCOMETER Lab Routine For m edications that can be administered at any time during the hospitalization for visit such as immunizations. for 1 Occurrences starting 03/28/2011 GLUCOSE, GLUCOMETER Lab Routine For m edications that can be administered at any time during the hospitalization for visit such as immunizations. for 1 Occurrences starting 03/28/2011 GLUCOSE, GLUCOMETER Lab Routine For m edications that can be administered at any time during the hospitalization for visit such as immunizations. for 1 Occurrences starting 03/28/2011 GLUCOSE, GLUCOMETER Lab Routine For m edications that can be administered at any time during the hospitalization for visit such as immunizations. for 1 Occurrences starting 03/28/2011 GLUCOSE, GLUCOMETER Lab Routine For m edications that can be administered at any time during the hospitalization for visit such as immunizations. for 1 Occurrences starting 03/29/2011 GLUCOSE, GLUCOMETER Lab Routine For m edications that can be administered at any time during the hospitalization for visit such as immunizations. for 1 Occurrences starting 03/29/2011 GLUCOSE, GLUCOMETER Lab Routine For m edications that can be administered at any time during the hospitalization for visit such as immunizations. for 1 Occurrences starting 03/29/2011 GLUCOSE, GLUCOMETER Lab Routine For m edications that can be administered at any time during the hospitalization for visit such as immunizations. for 1 Occurrences starting 03/29/2011 GLUCOSE, GLUCOMETER Lab Routine For m edications that can be administered at any time during the hospitalization for visit such as immunizations. for 1 Occurrences starting 03/30/2011 GLUCOSE, GLUCOMETER Lab Routine For m edications that can be administered at any time during the hospitalization for visit such as immunizations. for 1 Occurrences starting 03/30/2011 GLUCOSE, GLUCOMETER Lab Routine For m edications that can be administered at any time during the hospitalization for visit such as immunizations. for 1 Occurrences starting 03/30/2011 GLUCOSE, GLUCOMETER Lab Routine For m edications that can be administered at any time during the hospitalization for visit such as immunizations. for 1 Occurrences starting 03/30/2011 GLUCOSE, GLUCOMETER Lab Routine For m edications that can be administered at any time during the hospitalization for visit such as immunizations. for 1 Occurrences starting 03/30/2011 GLUCOSE, GLUCOMETER Lab Routine For m edications that can be administered at any time during the hospitalization for visit such as immunizations. for 1 Occurrences starting 03/31/2011 GLUCOSE, GLUCOMETER Lab Routine For m edications that can be administered at any time during the hospitalization for visit such as immunizations. for 1 Occurrences starting 03/31/2011 GLUCOSE, GLUCOMETER Lab Routine For m edications that can be administered at any time during the hospitalization for visit such as immunizations. for 1 Occurrences starting 03/31/2011 GLUCOSE, GLUCOMETER Lab Routine For m edications that can be administered at any time during the hospitalization for visit such as immunizations. for 1 Occurrences starting 03/31/2011 GLUCOSE, GLUCOMETER Lab Routine For m edications that can be administered at any time during the hospitalization for visit such as immunizations. for 1 Occurrences starting 04/01/2011 GLUCOSE, GLUCOMETER Lab Routine For m edications that can be administered at any time during the hospitalization for visit such as immunizations. for 1 Occurrences starting 04/01/2011 GLUCOSE, GLUCOMETER Lab Routine For m edications that can be administered at any time during the hospitalization for visit such as immunizations. for 1 Occurrences starting 04/01/2011 GLUCOSE, GLUCOMETER Lab Routine For m edications that can be administered at any time during the hospitalization for visit such as immunizations. for 1 Occurrences starting 04/01/2011 GLUCOSE, GLUCOMETER Lab Routine For m edications that can be administered at any time during the hospitalization for visit such as immunizations. for 1 Occurrences starting 04/02/2011 GLUCOSE, GLUCOMETER Lab Routine For m edications that can be administered at any time during the hospitalization for visit such as immunizations. for 1 Occurrences starting 04/02/2011 GLUCOSE, GLUCOMETER Lab Routine For m edications that can be administered at any time during the hospitalization for visit such as immunizations. for 1 Occurrences starting 04/02/2011 GLUCOSE, GLUCOMETER Lab Routine For m edications that can be administered at any time during the hospitalization for visit such as immunizations. for 1 Occurrences starting 04/02/2011 GLUCOSE, GLUCOMETER Lab Routine For m edications that can be administered at any time during the hospitalization for visit such as immunizations. for 1 Occurrences starting 04/02/2011 GLUCOSE, GLUCOMETER Lab Routine For m edications that can be administered at any time during the hospitalization for visit such as immunizations. for 1 Occurrences starting 04/03/2011 GLUCOSE, GLUCOMETER Lab Routine For m edications that can be administered at any time during the hospitalization for visit such as immunizations. for 1 Occurrences starting 04/03/2011 GLUCOSE, GLUCOMETER Lab Routine For m edications that can be administered at any time during the hospitalization for visit such as immunizations. for 1 Occurrences starting 04/03/2011 GLUCOSE, GLUCOMETER Lab Routine For m edications that can be administered at any time during the hospitalization for visit such as immunizations. for 1 Occurrences starting 04/04/2011 GLUCOSE, GLUCOMETER Lab Routine For m edications that can be administered at any time during the hospitalization for visit such as immunizations. for 1 Occurrences starting 04/04/2011 GLUCOSE, GLUCOMETER Lab Routine For m edications that can be administered at any time during the hospitalization for visit such as immunizations. for 1 Occurrences starting 04/04/2011 GLUCOSE, GLUCOMETER Lab Routine For m edications that can be administered at any time during the hospitalization for visit such as immunizations. for 1 Occurrences starting 04/04/2011 GLUCOSE, GLUCOMETER Lab Routine For m edications that can be administered at any time during the hospitalization for visit such as immunizations. for 1 Occurrences starting 04/05/2011 GLUCOSE, GLUCOMETER Lab Routine For m edications that can be administered at any time during the hospitalization for visit such as immunizations. for 1 Occurrences starting 04/05/2011 GLUCOSE, GLUCOMETER Lab Routine For m edications that can be administered at any time during the hospitalization for visit such as immunizations. for 1 Occurrences starting 04/05/2011 GLUCOSE, GLUCOMETER Lab Routine For m edications that can be administered at any time during the hospitalization for visit such as immunizations. for 1 Occurrences starting 04/05/2011 GLUCOSE, GLUCOMETER Lab Routine For m edications that can be administered at any time during the hospitalization for visit such as immunizations. for 1 Occurrences starting 04/06/2011 GLUCOSE, GLUCOMETER Lab Routine For m edications that can be administered at any time during the hospitalization for visit such as immunizations. for 1 Occurrences starting 04/06/2011 GLUCOSE, GLUCOMETER Lab Routine For m edications that can be administered at any time during the hospitalization for visit such as immunizations. for 1 Occurrences starting 04/06/2011 GLUCOSE, GLUCOMETER Lab Routine For m edications that can be administered at any time during the hospitalization for visit such as immunizations. for 1 Occurrences starting 04/06/2011 GLUCOSE, GLUCOMETER Lab Routine For m edications that can be administered at any time during the hospitalization for visit such as immunizations. for 1 Occurrences starting 04/07/2011 GLUCOSE, GLUCOMETER Lab Routine For m edications that can be administered at any time during the hospitalization for visit such as immunizations. for 1 Occurrences starting 04/07/2011 GLUCOSE, GLUCOMETER Lab Routine For m edications that can be administered at any time during the hospitalization for visit such as immunizations. for 1 Occurrences starting 04/07/2011 GLUCOSE, GLUCOMETER Lab Routine For m edications that can be administered at any time during the hospitalization for visit such as immunizations. for 1 Occurrences starting 04/07/2011 GLUCOSE, GLUCOMETER Lab Routine For m edications that can be administered at any time during the hospitalization for visit such as immunizations. for 1 Occurrences starting 04/08/2011 GLUCOSE, GLUCOMETER Lab Routine For m edications that can be administered at any time during the hospitalization for visit such as immunizations. for 1 Occurrences starting 04/08/2011 GLUCOSE, GLUCOMETER Lab Routine For m edications that can be administered at any time during the hospitalization for visit such as immunizations. for 1 Occurrences starting 04/08/2011 GLUCOSE, GLUCOMETER Lab Routine For m edications that can be administered at any time during the hospitalization for visit such as immunizations. for 1 Occurrences starting 04/08/2011 GLUCOSE, GLUCOMETER Lab Routine For m edications that can be administered at any time during the hospitalization for visit such as immunizations. for 1 Occurrences starting 04/08/2011 GLUCOSE, GLUCOMETER Lab Routine For m edications that can be administered at any time during the hospitalization for visit such as immunizations. for 1 Occurrences starting 04/09/2011 GLUCOSE, GLUCOMETER Lab Routine For m edications that can be administered at any time during the hospitalization for visit such as immunizations. for 1 Occurrences starting 04/09/2011 GLUCOSE, GLUCOMETER Lab Routine For m edications that can be administered at any time during the hospitalization for visit such as immunizations. for 1 Occurrences starting 04/09/2011 GLUCOSE, GLUCOMETER Lab Routine For m edications that can be administered at any time during the hospitalization for visit such as immunizations. for 1 Occurrences starting 04/09/2011 GLUCOSE, GLUCOMETER Lab Routine For m edications that can be administered at any time during the hospitalization for visit such as immunizations. for 1 Occurrences starting 04/09/2011 GLUCOSE, GLUCOMETER Lab Routine For m edications that can be administered at any time during the hospitalization for visit such as immunizations. for 1 Occurrences starting 04/10/2011 GLUCOSE, GLUCOMETER Lab Routine For m edications that can be administered at any time during the hospitalization for visit such as immunizations. for 1 Occurrences starting 04/10/2011 GLUCOSE, GLUCOMETER Lab Routine For m edications that can be administered at any time during the hospitalization for visit such as immunizations. for 1 Occurrences starting 04/10/2011 GLUCOSE, GLUCOMETER Lab Routine For m edications that can be administered at any time during the hospitalization for visit such as immunizations. for 1 Occurrences starting 04/10/2011 GLUCOSE, GLUCOMETER Lab Routine For m edications that can be administered at any time during the hospitalization for visit such as immunizations. for 1 Occurrences starting 04/11/2011 GLUCOSE, GLUCOMETER Lab Routine For m edications that can be administered at any time during the hospitalization for visit such as immunizations. for 1 Occurrences starting 04/11/2011 GLUCOSE, GLUCOMETER Lab Routine For m edications that can be administered at any time during the hospitalization for visit such as immunizations. for 1 Occurrences starting 04/11/2011 GLUCOSE, GLUCOMETER Lab Routine For m edications that can be administered at any time during the hospitalization for visit such as immunizations. for 1 Occurrences starting 04/12/2011 GLUCOSE, GLUCOMETER Lab Routine For m edications that can be administered at any time during the hospitalization for visit such as immunizations. for 1 Occurrences starting 04/12/2011 GLUCOSE, GLUCOMETER Lab Routine For m edications that can be administered at any time during the hospitalization for visit such as immunizations. for 1 Occurrences starting 04/12/2011 GLUCOSE, GLUCOMETER Lab Routine For m edications that can be administered at any time during the hospitalization for visit such as immunizations. for 1 Occurrences starting 04/13/2011 GLUCOSE, GLUCOMETER Lab Routine For m edications that can be administered at any time during the hospitalization for visit such as immunizations. for 1 Occurrences starting 04/13/2011 GLUCOSE, GLUCOMETER Lab Routine For m edications that can be administered at any time during the hospitalization for visit such as immunizations. for 1 Occurrences starting 04/13/2011 GLUCOSE, GLUCOMETER Lab Routine For m edications that can be administered at any time during the hospitalization for visit such as immunizations. for 1 Occurrences starting 04/13/2011 GLUCOSE, GLUCOMETER Lab Routine For m edications that can be administered at any time during the hospitalization for visit such as immunizations. for 1 Occurrences starting 04/13/2011 GLUCOSE, GLUCOMETER Lab Routine For m edications that can be administered at any time during the hospitalization for visit such as immunizations. for 1 Occurrences starting 04/13/2011 GLUCOSE, GLUCOMETER Lab Routine For m edications that can be administered at any time during the hospitalization for visit such as immunizations. for 1 Occurrences starting 04/14/2011 GLUCOSE, GLUCOMETER Lab Routine For m edications that can be administered at any time during the hospitalization for visit such as immunizations. for 1 Occurrences starting 04/14/2011 GLUCOSE, GLUCOMETER Lab Routine For m edications that can be administered at any time during the hospitalization for visit such as immunizations. for 1 Occurrences starting 04/14/2011 GLUCOSE, GLUCOMETER Lab Routine For m edications that can be administered at any time during the hospitalization for visit such as immunizations. for 1 Occurrences starting 04/14/2011 GLUCOSE, GLUCOMETER Lab Routine For m edications that can be administered at any time during the hospitalization for visit such as immunizations. for 1 Occurrences starting 04/15/2011 GLUCOSE, GLUCOMETER Lab Routine For m edications that can be administered at any time during the hospitalization for visit such as immunizations. for 1 Occurrences starting 04/15/2011 GLUCOSE, GLUCOMETER Lab Routine For m edications that can be administered at any time during the hospitalization for visit such as immunizations. for 1 Occurrences starting 04/15/2011 GLUCOSE, GLUCOMETER Lab Routine For m edications that can be administered at any time during the hospitalization for visit such as immunizations. for 1 Occurrences starting 04/15/2011 GLUCOSE, GLUCOMETER Lab Routine For m edications that can be administered at any time during the hospitalization for visit such as immunizations. for 1 Occurrences starting 04/15/2011 GLUCOSE, GLUCOMETER Lab Routine For m edications that can be administered at any time during the hospitalization for visit such as immunizations. for 1 Occurrences starting 04/16/2011 GLUCOSE, GLUCOMETER Lab Routine For m edications that can be administered at any time during the hospitalization for visit such as immunizations. for 1 Occurrences starting 04/16/2011 GLUCOSE, GLUCOMETER Lab Routine For m edications that can be administered at any time during the hospitalization for visit such as immunizations. for 1 Occurrences starting 04/16/2011 GLUCOSE, GLUCOMETER Lab Routine For m edications that can be administered at any time during the hospitalization for visit such as immunizations. for 1 Occurrences starting 04/16/2011 GLUCOSE, GLUCOMETER Lab Routine For m edications that can be administered at any time during the hospitalization for visit such as immunizations. for 1 Occurrences starting 04/17/2011 GLUCOSE, GLUCOMETER Lab Routine For m edications that can be administered at any time during the hospitalization for visit such as immunizations. for 1 Occurrences starting 04/17/2011 GLUCOSE, GLUCOMETER Lab Routine For m edications that can be administered at any time during the hospitalization for visit such as immunizations. for 1 Occurrences starting 04/17/2011 GLUCOSE, GLUCOMETER Lab Routine For m edications that can be administered at any time during the hospitalization for visit such as immunizations. for 1 Occurrences starting 04/17/2011 GLUCOSE, GLUCOMETER Lab Routine For m edications that can be administered at any time during the hospitalization for visit such as immunizations. for 1 Occurrences starting 04/18/2011 GLUCOSE, GLUCOMETER Lab Routine For m edications that can be administered at any time during the hospitalization for visit such as immunizations. for 1 Occurrences starting 04/18/2011 GLUCOSE, GLUCOMETER Lab Routine For m edications that can be administered at any time during the hospitalization for visit such as immunizations. for 1 Occurrences starting 04/18/2011 GLUCOSE, GLUCOMETER Lab Routine For m edications that can be administered at any time during the hospitalization for visit such as immunizations. for 1 Occurrences starting 04/18/2011 GLUCOSE, GLUCOMETER Lab Routine For m edications that can be administered at any time during the hospitalization for visit such as immunizations. for 1 Occurrences starting 04/19/2011 GLUCOSE, GLUCOMETER Lab Routine For m edications that can be administered at any time during the hospitalization for visit such as immunizations. for 1 Occurrences starting 04/19/2011 GLUCOSE, GLUCOMETER Lab Routine For m edications that can be administered at any time during the hospitalization for visit such as immunizations. for 1 Occurrences starting 04/19/2011 GLUCOSE, GLUCOMETER Lab Routine For m edications that can be administered at any time during the hospitalization for visit such as immunizations. for 1 Occurrences starting 04/19/2011 GLUCOSE, GLUCOMETER Lab Routine For m edications that can be administered at any time during the hospitalization for visit such as immunizations. for 1 Occurrences starting 04/20/2011 GLUCOSE, GLUCOMETER Lab Routine For m edications that can be administered at any time during the hospitalization for visit such as immunizations. for 1 Occurrences starting 04/20/2011 GLUCOSE, GLUCOMETER Lab Routine For m edications that can be administered at any time during the hospitalization for visit such as immunizations. for 1 Occurrences starting 04/20/2011 GLUCOSE, GLUCOMETER Lab Routine For m edications that can be administered at any time during the hospitalization for visit such as immunizations. for 1 Occurrences starting 04/20/2011 GLUCOSE, GLUCOMETER Lab Routine For m edications that can be administered at any time during the hospitalization for visit such as immunizations. for 1 Occurrences starting 04/21/2011 GLUCOSE, GLUCOMETER Lab Routine For m edications that can be administered at any time during the hospitalization for visit such as immunizations. for 1 Occurrences starting 04/21/2011 GLUCOSE, GLUCOMETER Lab Routine For m edications that can be administered at any time during the hospitalization for visit such as immunizations. for 1 Occurrences starting 04/21/2011 GLUCOSE, GLUCOMETER Lab Routine For m edications that can be administered at any time during the hospitalization for visit such as immunizations. for 1 Occurrences starting 04/21/2011 GLUCOSE, GLUCOMETER Lab Routine For m edications that can be administered at any time during the hospitalization for visit such as immunizations. for 1 Occurrences starting 04/22/2011 GLUCOSE, GLUCOMETER Lab Routine For m edications that can be administered at any time during the hospitalization for visit such as immunizations. for 1 Occurrences starting 04/22/2011 GLUCOSE, GLUCOMETER Lab Routine For m edications that can be administered at any time during the hospitalization for visit such as immunizations. for 1 Occurrences starting 04/22/2011 GLUCOSE, GLUCOMETER Lab Routine For m edications that can be administered at any time during the hospitalization for visit such as immunizations. for 1 Occurrences starting 04/22/2011 GLUCOSE, GLUCOMETER Lab Routine For m edications that can be administered at any time during the hospitalization for visit such as immunizations. for 1 Occurrences starting 04/23/2011 GLUCOSE, GLUCOMETER Lab Routine For m edications that can be administered at any time during the hospitalization for visit such as immunizations. for 1 Occurrences starting 04/23/2011 GLUCOSE, GLUCOMETER Lab Routine For m edications that can be administered at any time during the hospitalization for visit such as immunizations. for 1 Occurrences starting 04/23/2011 GLUCOSE, GLUCOMETER Lab Routine For m edications that can be administered at any time during the hospitalization for visit such as immunizations. for 1 Occurrences starting 04/23/2011 GLUCOSE, GLUCOMETER Lab Routine For m edications that can be administered at any time during the hospitalization for visit such as immunizations. for 1 Occurrences starting 04/23/2011 GLUCOSE, GLUCOMETER Lab Routine For m edications that can be administered at any time during the hospitalization for visit such as immunizations. for 1 Occurrences starting 04/24/2011 GLUCOSE, GLUCOMETER Lab Routine For m edications that can be administered at any time during the hospitalization for visit such as immunizations. for 1 Occurrences starting 04/24/2011 GLUCOSE, GLUCOMETER Lab Routine For m edications that can be administered at any time during the hospitalization for visit such as immunizations. for 1 Occurrences starting 04/24/2011 GLUCOSE, GLUCOMETER Lab Routine For m edications that can be administered at any time during the hospitalization for visit such as immunizations. for 1 Occurrences starting 04/24/2011 GLUCOSE, GLUCOMETER Lab Routine For m edications that can be administered at any time during the hospitalization for visit such as immunizations. for 1 Occurrences starting 04/25/2011 GLUCOSE, GLUCOMETER Lab Routine For m edications that can be administered at any time during the hospitalization for visit such as immunizations. for 1 Occurrences starting 04/25/2011 GLUCOSE, GLUCOMETER Lab Routine For m edications that can be administered at any time during the hospitalization for visit such as immunizations. for 1 Occurrences starting 04/25/2011 GLUCOSE, GLUCOMETER Lab Routine For m edications that can be administered at any time during the hospitalization for visit such as immunizations. for 1 Occurrences starting 04/25/2011 GLUCOSE, GLUCOMETER Lab Routine For m edications that can be administered at any time during the hospitalization for visit such as immunizations. for 1 Occurrences starting 04/26/2011 GLUCOSE, GLUCOMETER Lab Routine For m edications that can be administered at any time during the hospitalization for visit such as immunizations. for 1 Occurrences starting 04/26/2011 GLUCOSE, GLUCOMETER Lab Routine For m edications that can be administered at any time during the hospitalization for visit such as immunizations. for 1 Occurrences starting 04/26/2011 GLUCOSE, GLUCOMETER Lab Routine For m edications that can be administered at any time during the hospitalization for visit such as immunizations. for 1 Occurrences starting 04/26/2011 GLUCOSE, GLUCOMETER Lab Routine For m edications that can be administered at any time during the hospitalization for visit such as immunizations. for 1 Occurrences starting 04/27/2011 GLUCOSE, GLUCOMETER Lab Routine For m edications that can be administered at any time during the hospitalization for visit such as immunizations. for 1 Occurrences starting 04/27/2011 GLUCOSE, GLUCOMETER Lab Routine For m edications that can be administered at any time during the hospitalization for visit such as immunizations. for 1 Occurrences starting 04/27/2011 GLUCOSE, GLUCOMETER Lab Routine For m edications that can be administered at any time during the hospitalization for visit such as immunizations. for 1 Occurrences starting 04/27/2011 GLUCOSE, GLUCOMETER Lab Routine For m edications that can be administered at any time during the hospitalization for visit such as immunizations. for 1 Occurrences starting 04/28/2011 GLUCOSE, GLUCOMETER Lab Routine For m edications that can be administered at any time during the hospitalization for visit such as immunizations. for 1 Occurrences starting 04/28/2011 GLUCOSE, GLUCOMETER Lab Routine For m edications that can be administered at any time during the hospitalization for visit such as immunizations. for 1 Occurrences starting 04/28/2011 GLUCOSE, GLUCOMETER Lab Routine For m edications that can be administered at any time during the hospitalization for visit such as immunizations. for 1 Occurrences starting 04/28/2011 GLUCOSE, GLUCOMETER Lab Routine For m edications that can be administered at any time during the hospitalization for visit such as immunizations. for 1 Occurrences starting 04/29/2011 GLUCOSE, GLUCOMETER Lab Routine For m edications that can be administered at any time during the hospitalization for visit such as immunizations. for 1 Occurrences starting 04/29/2011 GLUCOSE, GLUCOMETER Lab Routine For m edications that can be administered at any time during the hospitalization for visit such as immunizations. for 1 Occurrences starting 04/29/2011 GLUCOSE, GLUCOMETER Lab Routine For m edications that can be administered at any time during the hospitalization for visit such as immunizations. for 1 Occurrences starting 04/29/2011 GLUCOSE, GLUCOMETER Lab Routine For m edications that can be administered at any time during the hospitalization for visit such as immunizations. for 1 Occurrences starting 04/30/2011 GLUCOSE, GLUCOMETER Lab Routine For m edications that can be administered at any time during the hospitalization for visit such as immunizations. for 1 Occurrences starting 04/30/2011 GLUCOSE, GLUCOMETER Lab Routine For m edications that can be administered at any time during the hospitalization for visit such as immunizations. for 1 Occurrences starting 04/30/2011 GLUCOSE, GLUCOMETER Lab Routine For m edications that can be administered at any time during the hospitalization for visit such as immunizations. for 1 Occurrences starting 04/30/2011 GLUCOSE, GLUCOMETER Lab Routine For m edications that can be administered at any time during the hospitalization for visit such as immunizations. for 1 Occurrences starting 05/01/2011 GLUCOSE, GLUCOMETER Lab Routine For m edications that can be administered at any time during the hospitalization for visit such as immunizations. for 1 Occurrences starting 05/01/2011 GLUCOSE, GLUCOMETER Lab Routine For m edications that can be administered at any time during the hospitalization for visit such as immunizations. for 1 Occurrences starting 05/01/2011 GLUCOSE, GLUCOMETER Lab Routine For m edications that can be administered at any time during the hospitalization for visit such as immunizations. for 1 Occurrences starting 05/02/2011 GLUCOSE, GLUCOMETER Lab Routine For m edications that can be administered at any time during the hospitalization for visit such as immunizations. for 1 Occurrences starting 05/02/2011 GLUCOSE, GLUCOMETER Lab Routine For m edications that can be administered at any time during the hospitalization for visit such as immunizations. for 1 Occurrences starting 05/02/2011 GLUCOSE, GLUCOMETER Lab Routine For m edications that can be administered at any time during the hospitalization for visit such as immunizations. for 1 Occurrences starting 05/02/2011 GLUCOSE, GLUCOMETER Lab Routine For m edications that can be administered at any time during the hospitalization for visit such as immunizations. for 1 Occurrences starting 05/02/2011 GLUCOSE, GLUCOMETER Lab Routine For m edications that can be administered at any time during the hospitalization for visit such as immunizations. for 1 Occurrences starting 05/03/2011 GLUCOSE, GLUCOMETER Lab Routine For m edications that can be administered at any time during the hospitalization for visit such as immunizations. for 1 Occurrences starting 05/03/2011 GLUCOSE, GLUCOMETER Lab Routine For m edications that can be administered at any time during the hospitalization for visit such as immunizations. for 1 Occurrences starting 05/03/2011 GLUCOSE, GLUCOMETER Lab Routine For m edications that can be administered at any time during the hospitalization for visit such as immunizations. for 1 Occurrences starting 05/03/2011 GLUCOSE, GLUCOMETER Lab Routine For m edications that can be administered at any time during the hospitalization for visit such as immunizations. for 1 Occurrences starting 05/04/2011 GLUCOSE, GLUCOMETER Lab Routine For m edications that can be administered at any time during the hospitalization for visit such as immunizations. for 1 Occurrences starting 05/04/2011 GLUCOSE, GLUCOMETER Lab Routine For m edications that can be administered at any time during the hospitalization for visit such as immunizations. for 1 Occurrences starting 05/04/2011 GLUCOSE, GLUCOMETER Lab Routine For m edications that can be administered at any time during the hospitalization for visit such as immunizations. for 1 Occurrences starting 05/04/2011 GLUCOSE, GLUCOMETER Lab Routine For m edications that can be administered at any time during the hospitalization for visit such as immunizations. for 1 Occurrences starting 05/05/2011 documented as of this encounter Procedures Procedure Name Priority Date/Time Associated Diagnosis Comments ECG REPORT - SCANNED 05/13/2011 8:39 EST GLUCOSE, GLUCOMETER Routine 05/05/2011 8 :03 EST GLUCOSE, GLUCOMETER Routine 05/04/2011 2 1:03 EST GLUCOSE, GLUCOMETER Routine 05/04/2011 1 7:01 EST GLUCOSE, GLUCOMETER Routine 05/04/2011 1 1:49 EST GLUCOSE, GLUCOMETER Routine 05/04/2011 8 :14 EST GLUCOSE, GLUCOMETER Routine 05/03/2011 2 1:51 EST GLUCOSE, GLUCOMETER Routine 05/03/2011 1 6:35 EST GLUCOSE, GLUCOMETER Routine 05/03/2011 1 1:59 EST GLUCOSE, GLUCOMETER Routine 05/03/2011 8 :20 EST GLUCOSE, GLUCOMETER Routine 05/02/2011 2 1:13 EST GLUCOSE, GLUCOMETER Routine 05/02/2011 1 7:25 EST GLUCOSE, GLUCOMETER Routine 05/02/2011 1 1:55 EST GLUCOSE, GLUCOMETER Routine 05/02/2011 8 :30 EST GLUCOSE, GLUCOMETER Routine 05/01/2011 2 0:51 EST GLUCOSE, GLUCOMETER Routine 05/01/2011 1 6:57 EST GLUCOSE, GLUCOMETER Routine 05/01/2011 1 2:03 EST GLUCOSE, GLUCOMETER Routine 05/01/2011 8 :01 EST GLUCOSE, GLUCOMETER Routine 04/30/2011 2 1:04 EST GLUCOSE, GLUCOMETER Routine 04/30/2011 1 6:55 EST GLUCOSE, GLUCOMETER Routine 04/30/2011 1 2:22 EST GLUCOSE, GLUCOMETER Routine 04/30/2011 8 :32 EST GLUCOSE, GLUCOMETER Routine 04/29/2011 2 1:03 EST GLUCOSE, GLUCOMETER Routine 04/29/2011 1 6:46 EST GLUCOSE, GLUCOMETER Routine 04/29/2011 1 1:52 EST GLUCOSE, GLUCOMETER Routine 04/29/2011 8 :14 EST GLUCOSE, GLUCOMETER Routine 04/28/2011 2 0:59 EST GLUCOSE, GLUCOMETER Routine 04/28/2011 1 7:05 EST GLUCOSE, GLUCOMETER Routine 04/28/2011 1 2:21 EST GLUCOSE, GLUCOMETER Routine 04/28/2011 7 :45 EST GLUCOSE, GLUCOMETER Routine 04/27/2011 2 0:52 EST GLUCOSE, GLUCOMETER Routine 04/27/2011 1 6:59 EST GLUCOSE, GLUCOMETER Routine 04/27/2011 1 1:53 EST GLUCOSE, GLUCOMETER Routine 04/27/2011 7 :51 EST GLUCOSE, GLUCOMETER Routine 04/26/2011 2 1:57 EST GLUCOSE, GLUCOMETER Routine 04/26/2011 1 6:54 EST GLUCOSE, GLUCOMETER Routine 04/26/2011 1 1:53 EST GLUCOSE, GLUCOMETER Routine 04/26/2011 7 :54 EST GLUCOSE, GLUCOMETER Routine 04/25/2011 2 0:51 EST GLUCOSE, GLUCOMETER Routine 04/25/2011 1 7:05 EST GLUCOSE, GLUCOMETER Routine 04/25/2011 1 3:22 EST GLUCOSE, GLUCOMETER Routine 04/25/2011 8 :19 EST GLUCOSE, GLUCOMETER Routine 04/24/2011 2 0:52 EST GLUCOSE, GLUCOMETER Routine 04/24/2011 1 7:17 EST GLUCOSE, GLUCOMETER Routine 04/24/2011 1 1:52 EST GLUCOSE, GLUCOMETER Routine 04/24/2011 8 :13 EST GLUCOSE, GLUCOMETER Routine 04/23/2011 2 0:54 EST GLUCOSE, GLUCOMETER Routine 04/23/2011 1 7:17 EST GLUCOSE, GLUCOMETER Routine 04/23/2011 1 2:08 EST GLUCOSE, GLUCOMETER Routine 04/23/2011 9 :26 EST GLUCOSE, GLUCOMETER Routine 04/23/2011 8 :19 EST GLUCOSE, GLUCOMETER Routine 04/22/2011 2 0:51 EST GLUCOSE, GLUCOMETER Routine 04/22/2011 1 6:57 EST GLUCOSE, GLUCOMETER Routine 04/22/2011 1 1:48 EST GLUCOSE, GLUCOMETER Routine 04/22/2011 8 :02 EST GLUCOSE, GLUCOMETER Routine 04/21/2011 2 1:02 EST GLUCOSE, GLUCOMETER Routine 04/21/2011 1 7:25 EST GLUCOSE, GLUCOMETER Routine 04/21/2011 1 2:17 EST GLUCOSE, GLUCOMETER Routine 04/21/2011 8 :19 EST GLUCOSE, GLUCOMETER Routine 04/20/2011 2 1:18 EST GLUCOSE, GLUCOMETER Routine 04/20/2011 1 6:52 EST GLUCOSE, GLUCOMETER Routine 04/20/2011 1 1:53 EST GLUCOSE, GLUCOMETER Routine 04/20/2011 7 :54 EST GLUCOSE, GLUCOMETER Routine 04/19/2011 2 0:52 EST GLUCOSE, GLUCOMETER Routine 04/19/2011 1 6:48 EST GLUCOSE, GLUCOMETER Routine 04/19/2011 1 2:05 EST GLUCOSE, GLUCOMETER Routine 04/19/2011 8 :15 EST GLUCOSE, GLUCOMETER Routine 04/18/2011 2 1:23 EST GLUCOSE, GLUCOMETER Routine 04/18/2011 1 6:51 EST GLUCOSE, GLUCOMETER Routine 04/18/2011 1 3:34 EST GLUCOSE, GLUCOMETER Routine 04/18/2011 8 :01 EST GLUCOSE, GLUCOMETER Routine 04/17/2011 2 1:48 EST GLUCOSE, GLUCOMETER Routine 04/17/2011 1 7:05 EST GLUCOSE, GLUCOMETER Routine 04/17/2011 1 2:14 EST GLUCOSE, GLUCOMETER Routine 04/17/2011 8 :19 EST GLUCOSE, GLUCOMETER Routine 04/16/2011 2 0:39 EST GLUCOSE, GLUCOMETER Routine 04/16/2011 1 7:32 EST GLUCOSE, GLUCOMETER Routine 04/16/2011 1 1:05 EST GLUCOSE, GLUCOMETER Routine 04/16/2011 8 :05 EST GLUCOSE, GLUCOMETER Routine 04/15/2011 2 1:17 EST GLUCOSE, GLUCOMETER Routine 04/15/2011 1 6:52 EST GLUCOSE, GLUCOMETER Routine 04/15/2011 1 1:47 EST GLUCOSE, GLUCOMETER Routine 04/15/2011 7 :42 EST GLUCOSE, GLUCOMETER Routine 04/15/2011 2 :06 EST GLUCOSE, GLUCOMETER Routine 04/14/2011 2 2:27 EST GLUCOSE, GLUCOMETER Routine 04/14/2011 1 6:49 EST GLUCOSE, GLUCOMETER Routine 04/14/2011 1 2:09 EST GLUCOSE, GLUCOMETER Routine 04/14/2011 7 :58 EST GLUCOSE, GLUCOMETER Routine 04/13/2011 2 2:35 EST GLUCOSE, GLUCOMETER Routine 04/13/2011 2 1:12 EST GLUCOSE, GLUCOMETER Routine 04/13/2011 1 7:14 EST GLUCOSE, GLUCOMETER Routine 04/13/2011 1 1:24 EST GLUCOSE, GLUCOMETER Routine 04/13/2011 7 :39 EST GLUCOSE, GLUCOMETER Routine 04/12/2011 2 0:47 EST GLUCOSE, GLUCOMETER Routine 04/12/2011 1 7:00 EST GLUCOSE, GLUCOMETER Routine 04/12/2011 1 1:54 EST GLUCOSE, GLUCOMETER Routine 04/12/2011 7 :34 EST GLUCOSE, GLUCOMETER Routine 04/11/2011 2 0:57 EST GLUCOSE, GLUCOMETER Routine 04/11/2011 1 7:14 EST GLUCOSE, GLUCOMETER Routine 04/11/2011 7 :58 EST GLUCOSE, GLUCOMETER Routine 04/10/2011 2 1:09 EST GLUCOSE, GLUCOMETER Routine 04/10/2011 1 7:00 EST GLUCOSE, GLUCOMETER Routine 04/10/2011 1 1:55 EST GLUCOSE, GLUCOMETER Routine 04/10/2011 7 :59 EST GLUCOSE, GLUCOMETER Routine 04/09/2011 2 1:20 EST GLUCOSE, GLUCOMETER Routine 04/09/2011 1 7:29 EST GLUCOSE, GLUCOMETER Routine 04/09/2011 1 2:11 EST GLUCOSE, GLUCOMETER Routine 04/09/2011 1 0:49 EST GLUCOSE, GLUCOMETER Routine 04/09/2011 7 :59 EST GLUCOSE, GLUCOMETER Routine 04/08/2011 2 1:04 EST GLUCOSE, GLUCOMETER Routine 04/08/2011 1 7:22 EST GLUCOSE, GLUCOMETER Routine 04/08/2011 1 1:41 EST GLUCOSE, GLUCOMETER Routine 04/08/2011 8 :08 EST GLUCOSE, GLUCOMETER Routine 04/07/2011 2 3:56 EST GLUCOSE, GLUCOMETER Routine 04/07/2011 2 0:46 EST GLUCOSE, GLUCOMETER Routine 04/07/2011 1 7:02 EST GLUCOSE, GLUCOMETER Routine 04/07/2011 1 1:46 EST ECG REPORT - SCANNED 04/07/2011 8:08 EST GLUCOSE, GLUCOMETER Routine 04/07/2011 7 :36 EST GLUCOSE, GLUCOMETER Routine 04/06/2011 2 1:21 EST GLUCOSE, GLUCOMETER Routine 04/06/2011 1 9:25 EST GLUCOSE, GLUCOMETER Routine 04/06/2011 1 2:06 EST GLUCOSE, GLUCOMETER Routine 04/06/2011 8 :02 EST GLUCOSE, GLUCOMETER Routine 04/05/2011 2 1:37 EST GLUCOSE, GLUCOMETER Routine 04/05/2011 1 7:22 EST GLUCOSE, GLUCOMETER Routine 04/05/2011 1 1:52 EST GLUCOSE, GLUCOMETER Routine 04/05/2011 8 :13 EST GLUCOSE, GLUCOMETER Routine 04/04/2011 2 0:50 EST GLUCOSE, GLUCOMETER Routine 04/04/2011 1 6:49 EST CONSULT NUTRITION Routine 04/04/2011 14: 55 EST GLUCOSE, GLUCOMETER Routine 04/04/2011 1 1:12 EST GLUCOSE, GLUCOMETER Routine 04/04/2011 8 :28 EST GLUCOSE, GLUCOMETER Routine 04/03/2011 1 6:51 EST GLUCOSE, GLUCOMETER Routine 04/03/2011 1 1:58 EST GLUCOSE, GLUCOMETER Routine 04/03/2011 7 :53 EST GLUCOSE, GLUCOMETER Routine 04/02/2011 2 0:30 EST GLUCOSE, GLUCOMETER Routine 04/02/2011 1 6:50 EST GLUCOSE, GLUCOMETER Routine 04/02/2011 1 1:51 EST GLUCOSE, GLUCOMETER Routine 04/02/2011 1 0:09 EST GLUCOSE, GLUCOMETER Routine 04/02/2011 8 :03 EST GLUCOSE, GLUCOMETER Routine 04/01/2011 2 1:19 EST GLUCOSE, GLUCOMETER Routine 04/01/2011 1 7:03 EST GLUCOSE, GLUCOMETER Routine 04/01/2011 1 1:54 EST GLUCOSE, GLUCOMETER Routine 04/01/2011 8 :00 EST NORTRIPTYLINE, SERUM Routine 03/31/2011 20:54 EST GLUCOSE, GLUCOMETER Routine 03/31/2011 2 0:47 EST GLUCOSE, GLUCOMETER Routine 03/31/2011 1 7:12 EST GLUCOSE, GLUCOMETER Routine 03/31/2011 1 1:29 EST GLUCOSE, GLUCOMETER Routine 03/31/2011 8 :39 EST GLUCOSE, GLUCOMETER Routine 03/30/2011 2 0:58 EST GLUCOSE, GLUCOMETER Routine 03/30/2011 1 6:54 EST GLUCOSE, GLUCOMETER Routine 03/30/2011 1 1:53 EST GLUCOSE, GLUCOMETER Routine 03/30/2011 7 :42 EST GLUCOSE, GLUCOMETER Routine 03/30/2011 0 :13 EST GLUCOSE, GLUCOMETER Routine 03/29/2011 2 0:47 EST GLUCOSE, GLUCOMETER Routine 03/29/2011 1 7:06 EST GLUCOSE, GLUCOMETER Routine 03/29/2011 1 2:19 EST GLUCOSE, GLUCOMETER Routine 03/29/2011 7 :52 EST GLUCOSE, GLUCOMETER Routine 03/28/2011 2 1:14 EST GLUCOSE, GLUCOMETER Routine 03/28/2011 1 7:14 EST GLUCOSE, GLUCOMETER Routine 03/28/2011 1 2:16 EST GLUCOSE, GLUCOMETER Routine 03/28/2011 8 :15 EST GLUCOSE, GLUCOMETER Routine 03/27/2011 2 1:10 EST GLUCOSE, GLUCOMETER Routine 03/27/2011 1 7:11 EST GLUCOSE, GLUCOMETER Routine 03/27/2011 1 4:46 EST GLUCOSE, GLUCOMETER Routine 03/27/2011 1 1:52 EST GLUCOSE, GLUCOMETER Routine 03/27/2011 8 :04 EST GLUCOSE, GLUCOMETER Routine 03/27/2011 1 :41 EST GLUCOSE, GLUCOMETER Routine 03/26/2011 2 1:01 EST GLUCOSE, GLUCOMETER Routine 03/26/2011 1 7:17 EST EKG 12-LEAD Routine 03/26/2011 16:00 EST GLUCOSE, GLUCOMETER Routine 03/26/2011 1 2:17 EST GLUCOSE, GLUCOMETER Routine 03/26/2011 8 :10 EST ECG REPORT - SCANNED 03/26/2011 7:11 EST GLUCOSE, GLUCOMETER Routine 03/25/2011 2 0:52 EST GLUCOSE, GLUCOMETER Routine 03/25/2011 1 6:53 EST GLUCOSE, GLUCOMETER Routine 03/25/2011 1 1:57 EST GLUCOSE, GLUCOMETER Routine 03/25/2011 9 :24 EST GLUCOSE, GLUCOMETER Routine 03/24/2011 2 0:58 EST GLUCOSE, GLUCOMETER Routine 03/24/2011 1 6:52 EST GLUCOSE, GLUCOMETER Routine 03/24/2011 1 1:57 EST URINALYSIS WITH MICROSCOPIC IF POSITIVE Routine 03/24/2011 9:22 EST UA REFLEX Routine 03/24/2011 9:22 EST GLUCOSE, GLUCOMETER Routine 03/24/2011 9 :07 EST GLUCOSE, GLUCOMETER Routine 03/23/2011 2 2:46 EST GLUCOSE, GLUCOMETER Routine 03/23/2011 1 6:57 EST GLUCOSE, GLUCOMETER Routine 03/23/2011 1 2:01 EST GLUCOSE, GLUCOMETER Routine 03/23/2011 8 :43 EST GLUCOSE, GLUCOMETER Routine 03/22/2011 2 1:08 EST SCREENING GLUCOSE Routine 03/22/2011 19: 08 EST COMPLETE BLOOD COUNT AND DIFFERENTIAL Routine 03/22/2011 19:08 EST BUN Routine 03/22/2011 19:08 EST ALT Routine 03/22/2011 19:08 EST AST Routine 03/22/2011 19:08 EST TSH Routine 03/22/2011 19:08 EST T4 FREE Routine 03/22/2011 19:08 EST ALKALINE PHOSPHATASE Routine 03/22/2011 19:08 EST GGT Routine 03/22/2011 19:08 EST FOLATE Routine 03/22/2011 19:08 EST VITAMIN B12 Routine 03/22/2011 19:08 EST CREATININE Routine 03/22/2011 19:08 EST ALBUMIN Routine 03/22/2011 19:08 EST ELECTROLYTES Routine 03/22/2011 19:08 EST EKG 12-LEAD Routine 03/22/2011 18:42 EST GLUCOSE, GLUCOMETER Routine 03/22/2011 1 8:07 EST documented in this encounter Results * ECG REPORT - SCANNED (05/13/2011 8:39 EST) 05/13/2011 8:39 EST Narrative Transcriptions Community Development Officer, Scan - 05/13/2011 8:39 EST Scan Community Development Officer PROCEDURE/MINOR SURG ICAL ORDERABLES * (ABNORMAL) GLUCOSE, GLUCOMETER (05/05/2011 8:03 EST) Glucose, Fingerstick 120(H) 70 - 100 mg/dl [facility] Rodent Control Worker ID [id number] [facility] Comment:Test Performed by Nu [employer] 05/05/2011 8:03 EST 05/05/2011 8:44 EST Mary Jauregui MD CHEMISTRY & BLOOD G ORDERABLES Performing Organization Address [facility] Co de Phone Number [facility] [address] [place] [address] * (ABNORMAL) GLUCOSE, GLUCOMETER (05/04/2011 21:03 EST) Glucose, Fingerstick 161(H) 70 - 100 mg/dl [facility] Rodent Control Worker ID [id number] [facility] Comment:Test Performed by [employer] 05/04/2011 21:0 3 EST 05/04/2011 21:08 EST Mary Jauregui MD CHEMISTRY & BLOOD G ORDERABLES Performing Organization Address [facility] Co de Phone Number [facility] [address] [place] [address] * (ABNORMAL) GLUCOSE, GLUCOMETER (05/04/2011 17:01 EST) Glucose, Fingerstick 207(H) 70 - 100 mg/dl [facility] Rodent Control Worker ID [id number] [facility] Comment:Test Performed by [employer] 05/04/2011 17:0 1 EST 05/04/2011 17:09 EST Mary Jauregui MD CHEMISTRY & BLOOD G ORDERABLES Performing Organization Address [facility] Co de Phone Number [facility] [address] [place] [address] * GLUCOSE, GLUCOMETER (05/04/2011 11:49 EST) Glucose, Fingerstick 70 70 - 100 mg/dl [facility] Rodent Control Worker ID [id number] [facility] Comment:Test Performed by [employer] 05/04/2011 11:4 9 EST 05/04/2011 11:53 EST Mary Jauregui MD CHEMISTRY & BLOOD G ORDERABLES Performing Organization Address [facility] de Phone Number [facility] [address] [place] [address] * (ABNORMAL) GLUCOSE, GLUCOMETER (05/04/2011 8:14 EST) Glucose, Fingerstick 108(H) 70 - 100 mg/dl [facility] Rodent Control Worker ID [id number] [facility] Comment:Test Performed by [employer] 05/04/2011 8:14 EST 05/04/2011 8:30 EST Mary Jauregui MD CHEMISTRY & BLOOD G ORDERABLES Performing Organization Address [facility] de Phone Number [facility] [address] [place] [address] * (ABNORMAL) GLUCOSE, GLUCOMETER (05/03/2011 21:51 EST) Glucose, Fingerstick 176(H) 70 - 100 mg/dl [facility] Rodent Control Worker ID [id number] [facility] Comment:Test Performed by [employer] 05/03/2011 21:5 1 EST 05/03/2011 21:56 EST Mary Jauregui MD CHEMISTRY & BLOOD G ORDERABLES Performing Organization Address [facility] de Phone Number [facility] [address] [place] [address] * (ABNORMAL) GLUCOSE, GLUCOMETER (05/03/2011 16:35 EST) Glucose, Fingerstick 154(H) 70 - 100 mg/dl [facility] Rodent Control Worker ID [id number] [facility] Comment:Test Performed by [employer] 05/03/2011 16:3 5 EST 05/03/2011 16:43 EST Mary Jauregui MD CHEMISTRY & BLOOD G ORDERABLES Performing Organization Address [facility] Phone Number [facility] [address] [place] [address] * GLUCOSE, GLUCOMETER (05/03/2011 11:59 EST) Glucose, Fingerstick 84 70 - 100 mg/dl [facility] Rodent Control Worker ID [id number] [facility] Comment:Test Performed by [employer] 05/03/2011 11:5 9 EST 05/03/2011 12:04 EST Mary Jauregui MD CHEMISTRY & BLOOD G ORDERABLES Performing Organization Address [facility] Phone Number [facility] [address] [place] [address] * GLUCOSE, GLUCOMETER (05/03/2011 8:20 EST) Glucose, Fingerstick 78 70 - 100 mg/dl [facility] Rodent Control Worker ID [id number] [facility] Comment:Test Performed by [employer] 05/03/2011 8:20 EST 05/03/2011 8:29 EST Mary Jauregui MD CHEMISTRY & BLOOD G ORDERABLES Performing Organization Address [facility] Phone Number [facility] [address] [place] [address] * (ABNORMAL) GLUCOSE, GLUCOMETER (05/02/2011 21:13 EST) Glucose, Fingerstick 167(H) 70 - 100 mg/dl [facility] Rodent Control Worker ID [id number] [facility] Comment:Test Performed by [employer] 05/02/2011 21:1 3 EST 05/02/2011 21:14 EST Mary Jauregui MD CHEMISTRY & BLOOD G ORDERABLES Performing Organization Address [facility]/State/ZIP Co de Phone Number [facility] [address] [place] [address] * (ABNORMAL) GLUCOSE, GLUCOMETER (05/02/2011 17:25 EST) Glucose, Fingerstick 208(H) 70 - 100 mg/dl [facility] Rodent Control Worker ID [id number] [facility] Comment:Test Performed by [employer] 05/02/2011 17:2 5 EST 05/02/2011 17:27 EST Mary Jauregui MD CHEMISTRY & BLOOD G ORDERABLES Performing Organization Address [facility] Co de Phone Number [facility] [address] [place] [address] * (ABNORMAL) GLUCOSE, GLUCOMETER (05/02/2011 11:55 EST) Glucose, Fingerstick 283(H) 70 - 100 mg/dl [facility] Rodent Control Worker ID [id number] [facility] Comment:Test Performed by [employer] 05/02/2011 11:5 5 EST 05/02/2011 11:57 EST Mary Jauregui MD CHEMISTRY & BLOOD G ORDERABLES Performing Organization Address [facility] Co de Phone Number [facility] [address] [place] [address] * (ABNORMAL) GLUCOSE, GLUCOMETER (05/02/2011 8:30 EST) Glucose, Fingerstick 125(H) 70 - 100 mg/dl [facility] Rodent Control Worker ID [id number] [facility] Comment:Test Performed by [employer] 05/02/2011 8:30 EST 05/02/2011 8:33 EST Mary Jauregui MD CHEMISTRY & BLOOD G ORDERABLES Performing Organization Address [facility] Co de Phone Number [facility] [address] [place] [address] * (ABNORMAL) GLUCOSE, GLUCOMETER (05/01/2011 20:51 EST) Glucose, Fingerstick 184(H) 70 - 100 mg/dl [facility] Rodent Control Worker ID [id number] [facility] Comment:Test Performed by [employer] 05/01/2011 20:5 1 EST 05/02/2011 8:33 EST Mary Jauregui MD CHEMISTRY & BLOOD G ORDERABLES Performing Organization Address [facility] Phone Number [facility] [address] [place] [address] * (ABNORMAL) GLUCOSE, GLUCOMETER (05/01/2011 16:57 EST) Glucose, Fingerstick 153(H) 70 - 100 mg/dl [facility] [place] [id number] [facility] Comment:Test Performed by [employer] 05/01/2011 16:5 7 EST 05/01/2011 17:10 EST Mary Jauregui MD CHEMISTRY & BLOOD G ORDERABLES Performing Organization Address [facility] de Phone Number [facility] [address] [place] [address] * (ABNORMAL) GLUCOSE, GLUCOMETER (05/01/2011 12:03 EST) Glucose, Fingerstick 124(H) 70 - 100 mg/dl [facility] Rodent Control Worker ID [id number] [facility] Comment:Test Performed by [employer] 05/01/2011 12:0 3 EST 05/01/2011 12:10 EST Mary Jauregui MD CHEMISTRY & BLOOD G ORDERABLES Performing Organization Address [facility] de Phone Number [facility] [address] [place] [address] * (ABNORMAL) GLUCOSE, GLUCOMETER (05/01/2011 8:01 EST) Glucose, Fingerstick 124(H) 70 - 100 mg/dl [facility] Rodent Control Worker ID [id number] [facility] Comment:Test Performed by [employer] 05/01/2011 8:01 EST 05/01/2011 8:27 EST Mary Jauregui MD CHEMISTRY & BLOOD G ORDERABLES Performing Organization Address [facility] Phone Number [facility] [address] [place] [address] * (ABNORMAL) GLUCOSE, GLUCOMETER (04/30/2011 21:04 EST) Glucose, Fingerstick 142(H) 70 - 100 mg/dl [facility] Rodent Control Worker ID [id number] [facility] Comment:Test Performed by [employer] 04/30/2011 21:0 4 EST 04/30/2011 21:08 EST Mary Jauregui MD CHEMISTRY & BLOOD G ORDERABLES Performing Organization Address [facility] Phone Number [facility] [address] [place] [address] * (ABNORMAL) GLUCOSE, GLUCOMETER (04/30/2011 16:55 EST) Glucose, Fingerstick 155(H) 70 - 100 mg/dl [facility] Rodent Control Worker ID [id number] [facility] Comment:Test Performed by [employer] 04/30/2011 16:5 5 EST 04/30/2011 16:57 EST Mary Jauregui MD CHEMISTRY & BLOOD G ORDERABLES Performing Organization Address [facility] Phone Number [facility] [address] [place] [address] * (ABNORMAL) GLUCOSE, GLUCOMETER (04/30/2011 12:22 EST) Glucose, Fingerstick 169(H) 70 - 100 mg/dl [facility] Rodent Control Worker ID [id number] [facility] Comment:Test Performed by [employer] 04/30/2011 12:2 2 EST 04/30/2011 12:24 EST Mary Jauregui MD CHEMISTRY & BLOOD G ORDERABLES Performing Organization Address [facility]/ZIP Co de Phone Number [facility] [address] [place] [address] * (ABNORMAL) GLUCOSE, GLUCOMETER (04/30/2011 8:32 EST) Glucose, Fingerstick 105(H) 70 - 100 mg/dl [facility] Rodent Control Worker ID [id number] [facility] Comment:Test Performed by [employer] 04/30/2011 8:32 EST 04/30/2011 8:53 EST Mary Jauregui MD CHEMISTRY & BLOOD G ORDERABLES Performing Organization Address [facility] de Phone Number [facility] [address] [place] [address] * (ABNORMAL) GLUCOSE, GLUCOMETER (04/29/2011 21:03 EST) Glucose, Fingerstick 206(H) 70 - 100 mg/dl [facility] Rodent Control Worker ID [id number] [facility] Comment:Test Performed by [employer] 04/29/2011 21:0 3 EST 04/29/2011 21:04 EST Mary Jauregui MD CHEMISTRY & BLOOD G ORDERABLES Performing Organization Address [facility] de Phone Number [facility] [address] [place] [address] * (ABNORMAL) GLUCOSE, GLUCOMETER (04/29/2011 16:46 EST) Glucose, Fingerstick 237(H) 70 - 100 mg/dl [facility] Rodent Control Worker ID [id number] [facility] Comment:Test Performed by [employer] 04/29/2011 16:4 6 EST 04/29/2011 16:48 EST Mary Jauregui MD CHEMISTRY & BLOOD G ORDERABLES Performing Organization Address [facility] Co de Phone Number [facility] [address] [place] [address] * GLUCOSE, GLUCOMETER (04/29/2011 11:52 EST) Glucose, Fingerstick 89 70 - 100 mg/dl [facility] Rodent Control Worker ID [id number] [facility] Comment:Test Performed by [employer] 04/29/2011 11:5 2 EST 04/29/2011 11:57 EST Mary Jauregui MD CHEMISTRY & BLOOD G ORDERABLES Performing Organization Address [facility] Phone Number [facility] [address] [place] [address] * (ABNORMAL) GLUCOSE, GLUCOMETER (04/29/2011 8:14 EST) Glucose, Fingerstick 101(H) 70 - 100 mg/dl [facility] Rodent Control Worker ID [id number] [facility] Comment:Test Performed by [employer] 04/29/2011 8:14 EST 04/29/2011 8:37 EST Mary Jauregui MD CHEMISTRY & BLOOD G ORDERABLES Performing Organization Address [facility] Co de Phone Number [facility] [address] [place] [address] * (ABNORMAL) GLUCOSE, GLUCOMETER (04/28/2011 20:59 EST) Glucose, Fingerstick 151(H) 70 - 100 mg/dl [facility] Rodent Control Worker ID [id number] [facility] Comment:Test Performed by [employer] 04/28/2011 20:5 9 EST 04/28/2011 21:01 EST Mary Jauregui MD CHEMISTRY & BLOOD G ORDERABLES Performing Organization Address [facility] de Phone Number [facility] [address] [place] [address] * (ABNORMAL) GLUCOSE, GLUCOMETER (04/28/2011 17:05 EST) Glucose, Fingerstick 143(H) 70 - 100 mg/dl [facility] Rodent Control Worker ID [id number] [facility] Comment:Test Performed by [employer] 04/28/2011 17:0 5 EST 04/28/2011 17:08 EST Mary Jauregui MD CHEMISTRY & BLOOD G ORDERABLES Performing Organization Address [facility] Phone Number [facility] [address] [place] [address] * (ABNORMAL) GLUCOSE, GLUCOMETER (04/28/2011 12:21 EST) Glucose, Fingerstick 250(H) 70 - 100 mg/dl [facility] Rodent Control Worker ID [id number] [facility] Comment:Test Performed by [employer] 04/28/2011 12:2 1 EST 04/28/2011 12:25 EST Mary Jauregui MD CHEMISTRY & BLOOD G ORDERABLES Performing Organization Address [facility] Phone Number [facility] [address] [place] [address] * (ABNORMAL) GLUCOSE, GLUCOMETER (04/28/2011 7:45 EST) Glucose, Fingerstick 110(H) 70 - 100 mg/dl [facility] Rodent Control Worker ID [id number] [facility] Comment:Test Performed by [employer] 04/28/2011 7:45 EST 04/28/2011 7:48 EST Mary Jauregui MD CHEMISTRY & BLOOD G ORDERABLES Performing Organization Address [facility] Phone Number [facility] [address] [place] [address] * (ABNORMAL) GLUCOSE, GLUCOMETER (04/27/2011 20:52 EST) Glucose, Fingerstick 256(H) 70 - 100 mg/dl [facility] Rodent Control Worker ID [id number] [facility] Comment:Test Performed by [employer] 04/27/2011 20:5 2 EST 04/27/2011 20:55 EST Mary Jauregui MD CHEMISTRY & BLOOD G ORDERABLES Performing Organization Address [facility]/ZIP Co de Phone Number [facility] [address] [place] [address] * (ABNORMAL) GLUCOSE, GLUCOMETER (04/27/2011 16:59 EST) Glucose, Fingerstick 214(H) 70 - 100 mg/dl [facility] Rodent Control Worker ID [id number] [facility] Comment:Test Performed by [employer] 04/27/2011 16:5 9 EST 04/27/2011 17:02 EST Mary Jauregui MD CHEMISTRY & BLOOD G ORDERABLES Performing Organization Address [facility] de Phone Number [facility] [address] [place] [address] * (ABNORMAL) GLUCOSE, GLUCOMETER (04/27/2011 11:53 EST) Glucose, Fingerstick 66(L) 70 - 100 mg/dl [facility] Rodent Control Worker ID [id number] [facility] Comment:Test Performed by Nu [employer] 04/27/2011 11:5 3 EST 04/27/2011 11:55 EST Mary Jauregui MD CHEMISTRY & BLOOD G ORDERABLES Performing Organization Address [facility] de Phone Number [facility] [address] [place] [address] * (ABNORMAL) GLUCOSE, GLUCOMETER (04/27/2011 7:51 EST) Glucose, Fingerstick 209(H) 70 - 100 mg/dl [facility] Rodent Control Worker ID [id number] [facility] Comment:Test Performed by Nu [employer] 04/27/2011 7:51 EST 04/27/2011 7:54 EST Mary Jauregui MD CHEMISTRY & BLOOD G ORDERABLES Performing Organization Address [facility] Co de Phone Number [facility] [address] [place] [address] * (ABNORMAL) GLUCOSE, GLUCOMETER (04/26/2011 21:57 EST) Glucose, Fingerstick 180(H) 70 - 100 mg/dl [facility] Rodent Control Worker ID [id number] [facility] Comment:Test Performed by Nu [employer] 04/26/2011 21:5 7 EST 04/26/2011 22:00 EST Mary Jauregui MD CHEMISTRY & BLOOD G ORDERABLES Performing Organization Address [facility] de Phone Number [facility] [address] [place] [address] * (ABNORMAL) GLUCOSE, GLUCOMETER (04/26/2011 16:54 EST) Glucose, Fingerstick 129(H) 70 - 100 mg/dl [facility] Rodent Control Worker ID [id number] [facility] Comment:Test Performed by Nu [employer] 04/26/2011 16:5 4 EST 04/26/2011 16:55 EST Mary Jauregui MD CHEMISTRY & BLOOD G ORDERABLES Performing Organization Address [facility] Co de Phone Number [facility] [address] [place] [address] * (ABNORMAL) GLUCOSE, GLUCOMETER (04/26/2011 11:53 EST) Glucose, Fingerstick 140(H) 70 - 100 mg/dl [facility] Rodent Control Worker ID [id number] [facility] Comment:Test Performed by Nu [employer] 04/26/2011 11:5 3 EST 04/26/2011 11:56 EST Mary Jauregui MD CHEMISTRY & BLOOD G ORDERABLES Performing Organization Address [facility] de Phone Number [facility] [address] [place] [address] * (ABNORMAL) GLUCOSE, GLUCOMETER (04/26/2011 7:54 EST) Glucose, Fingerstick 118(H) 70 - 100 mg/dl [facility] Rodent Control Worker ID [id number] [facility] Comment:Test Performed by Nu [employer] 04/26/2011 7:54 EST 04/26/2011 7:59 EST Mary Jauergui MD CHEMISTRY & BLOOD G ORDERABLES Performing Organization Address [facility] Phone Number [facility] [address] [place] [address] * (ABNORMAL) GLUCOSE, GLUCOMETER (04/25/2011 20:51 EST) Glucose, Fingerstick 188(H) 70 - 100 mg/dl [facility] Rodent Control Worker ID [id number] [facility] Comment:Test Performed by Nu [employer] 04/25/2011 20:5 1 EST 04/25/2011 20:53 EST Mary Jauregui MD CHEMISTRY & BLOOD G ORDERABLES Performing Organization Address [facility] Phone Number [facility] [address] [place] [address] * (ABNORMAL) GLUCOSE, GLUCOMETER (04/25/2011 17:05 EST) Glucose, Fingerstick 240(H) 70 - 100 mg/dl [facility] Rodent Control Worker ID [id number] [facility] Comment:Test Performed by Nu [employer] 04/25/2011 17:0 5 EST 04/25/2011 17:08 EST Mary Jauregui MD CHEMISTRY & BLOOD G ORDERABLES Performing Organization Address [facility] Phone Number [facility] [address] [place] [address] * (ABNORMAL) GLUCOSE, GLUCOMETER (04/25/2011 13:22 EST) Glucose, Fingerstick 136(H) 70 - 100 mg/dl [facility] Rodent Control Worker ID [id number] [facility] Comment:Test Performed by [employer] 04/25/2011 13:2 2 EST 04/25/2011 13:24 EST Mary Jauregui MD CHEMISTRY & BLOOD G ORDERABLES Performing Organization Address [facility] Co de Phone Number [facility] [address] [place] [address] * GLUCOSE, GLUCOMETER (04/25/2011 8:19 EST) Glucose, Fingerstick 96 70 - 100 mg/dl [facility] Rodent Control Worker ID [id number] [facility] Comment:Test Performed by Nu [employer] 04/25/2011 8:19 EST 04/25/2011 8:22 EST Mary Jauregui MD CHEMISTRY & BLOOD G ORDERABLES Performing Organization Address [facility] de Phone Number [facility] [address] [place] [address] * (ABNORMAL) GLUCOSE, GLUCOMETER (04/24/2011 20:52 EST) Glucose, Fingerstick 283(H) 70 - 100 mg/dl [facility] Rodent Control Worker ID [id number] [facility] Comment:Test Performed by Nu [employer] 04/24/2011 20:5 2 EST 04/24/2011 20:55 EST Mary Jauregui MD CHEMISTRY & BLOOD G ORDERABLES Performing Organization Address [facility] Phone Number [facility] [address] [place] [address] * (ABNORMAL) GLUCOSE, GLUCOMETER (04/24/2011 17:17 EST) Glucose, Fingerstick 189(H) 70 - 100 mg/dl [facility] Rodent Control Worker ID [id number] [facility] Comment:Test Performed by [facility] [facility] 04/24/2011 17:1 7 EST 04/24/2011 17:21 EST Mary Jauregui MD CHEMISTRY & BLOOD G ORDERABLES Performing Organization Address [facility] Co de Phone Number [facility] [address] [place] [address] * GLUCOSE, GLUCOMETER (04/24/2011 11:52 EST) Glucose, Fingerstick 100 70 - 100 mg/dl [facility] Rod[employer] Control Worker ID [id number] [facility] Comment:Test Performed by [facility] 04/24/2011 11:5 2 EST 04/24/2011 11:55 EST Mary Jauregui MD CHEMISTRY & BLOOD G ORDERABLES Performing Organization Address [facility] de Phone Number [facility] [address] [place] [address] * (ABNORMAL) GLUCOSE, GLUCOMETER (04/24/2011 8:13 EST) Glucose, Fingerstick 126(H) 70 - 100 mg/dl [facility] Rodent Control Worker ID [id number] [facility] Comment:Test Performed by [facility] [facility] 04/24/2011 8:13 EST 04/24/2011 8:16 EST Mary Jauregui MD CHEMISTRY & BLOOD G ORDERABLES Performing Organization Address [facility] de Phone Number [facility] [address] [place] [address] * (ABNORMAL) GLUCOSE, GLUCOMETER (04/23/2011 20:54 EST) Glucose, Fingerstick 248(H) 70 - 100 mg/dl [facility] Rodent Control Worker ID [id number] [facility] Comment:Test Performed by [facility] [facility] 04/23/2011 20:5 4 EST 04/23/2011 20:57 EST Mary Jauregui MD CHEMISTRY & BLOOD G ORDERABLES Performing Organization Address [facility] de Phone Number [facility] [address] [place] [address] * (ABNORMAL) GLUCOSE, GLUCOMETER (04/23/2011 17:17 EST) Glucose, Fingerstick 174(H) 70 - 100 mg/dl [facility] Rodent Control Worker ID [id number] [facility] Comment:Test Performed by [facility] [facility] 04/23/2011 17:1 7 EST 04/23/2011 17:19 EST Mary Jauregui MD CHEMISTRY & BLOOD G ORDERABLES Performing Organization Address [facility] Phone Number [facility] [address] [place] [address] * (ABNORMAL) GLUCOSE, GLUCOMETER (04/23/2011 12:08 EST) Glucose, Fingerstick 230(H) 70 - 100 mg/dl [facility] Rodent Control Worker ID [id number] [facility] Comment:Test Performed by [employer] [facility] 04/23/2011 12:0 8 EST 04/23/2011 12:09 EST Mary Jauregui MD CHEMISTRY & BLOOD G ORDERABLES Performing Organization Address [facility] Phone Number [facility] [address] [place] [address] * (ABNORMAL) GLUCOSE, GLUCOMETER (04/23/2011 9:26 EST) Glucose, Fingerstick 161(H) 70 - 100 mg/dl [facility] Rodent Control Worker ID [id number] [facility] Comment:Test Performed by [facility] [facility] 04/23/2011 9:26 EST 04/23/2011 9:27 EST Mary Jauregui MD CHEMISTRY & BLOOD G ORDERABLES Performing Organization Address [facility] Phone Number [facility] [address] [place] [address] * (ABNORMAL) GLUCOSE, GLUCOMETER (04/23/2011 8:19 EST) Glucose, Fingerstick 132(H) 70 - 100 mg/dl [facility] Rodent Control Worker ID [id number] [facility] Comment:Test Performed by [facility] 04/23/2011 8:19 EST 04/23/2011 8:24 EST Mary Jauregui MD CHEMISTRY & BLOOD G ORDERABLES Performing Organization Address [facility]/ZIP Co de Phone Number [facility] [address] [place] [address] * (ABNORMAL) GLUCOSE, GLUCOMETER (04/22/2011 20:51 EST) Glucose, Fingerstick 238(H) 70 - 100 mg/dl [facility] Rodent Control Worker ID [id number] [facility] Comment:Test Performed by [facility] 04/22/2011 20:5 1 EST 04/22/2011 20:53 EST Mary Jauregui MD CHEMISTRY & BLOOD G ORDERABLES Performing Organization Address [facility] Co de Phone Number [facility] [address] [place] [address] * (ABNORMAL) GLUCOSE, GLUCOMETER (04/22/2011 16:57 EST) Glucose, Fingerstick 180(H) 70 - 100 mg/dl [facility] Rodent Control Worker ID [id number] [facility] Comment:Test Performed by [facility] [facility] 04/22/2011 16:5 7 EST 04/22/2011 17:06 EST Mary Jauregui MD CHEMISTRY & BLOOD G ORDERABLES Performing Organization Address [facility] Co de Phone Number [facility] [address] [place] [address] * (ABNORMAL) GLUCOSE, GLUCOMETER (04/22/2011 11:48 EST) Glucose, Fingerstick 158(H) 70 - 100 mg/dl [facility] Rodent Control Worker ID [id number] [facility] Comment:Test Performed by [facility] [facility] 04/22/2011 11:4 8 EST 04/22/2011 11:50 EST Mary Jauregui MD CHEMISTRY & BLOOD G ORDERABLES Performing Organization Address [facility]/ZIP Co de Phone Number [facility] [address] [place] [address] * (ABNORMAL) GLUCOSE, GLUCOMETER (04/22/2011 8:02 EST) Glucose, Fingerstick 138(H) 70 - 100 mg/dl [facility] Rodent Control Worker ID [id number] [facility] Comment:Test Performed by [facility] [facility] 04/22/2011 8:02 EST 04/22/2011 8:46 EST Mary Jauregui MD CHEMISTRY & BLOOD G ORDERABLES Performing Organization Address [facility] Phone Number [facility] [address] [place] [address] * (ABNORMAL) GLUCOSE, GLUCOMETER (04/21/2011 21:02 EST) Glucose, Fingerstick 256(H) 70 - 100 mg/dl [facility] Rodent Control Worker ID [id number] [facility] Comment:Test Performed by [employer] [facility] 04/21/2011 21:0 2 EST 04/21/2011 21:05 EST Mary Jauregui MD CHEMISTRY & BLOOD G ORDERABLES Performing Organization Address [facility] Co de Phone Number [facility] [address] [place] [address] * (ABNORMAL) GLUCOSE, GLUCOMETER (04/21/2011 17:25 EST) Glucose, Fingerstick 175(H) 70 - 100 mg/dl [facility] Rodent Control Worker ID [id number] [facility] Comment:Test Performed by [facility] [facility] 04/21/2011 17:2 5 EST 04/21/2011 17:27 EST Mary Jauregui MD CHEMISTRY & BLOOD G ORDERABLES Performing Organization Address [facility] de Phone Number [facility] [address] [place] [address] * (ABNORMAL) GLUCOSE, GLUCOMETER (04/21/2011 12:17 EST) Glucose, Fingerstick 127(H) 70 - 100 mg/dl [facility] Rodent Control Worker ID [id number] [facility] Comment:Test Performed by [employer] [facility] 04/21/2011 12:1 7 EST 04/21/2011 12:25 EST Mary Jauregui MD CHEMISTRY & BLOOD G ORDERABLES Performing Organization Address [facility] Phone Number [facility] [address] [place] [address] * (ABNORMAL) GLUCOSE, GLUCOMETER (04/21/2011 8:19 EST) Glucose, Fingerstick 137(H) 70 - 100 mg/dl [facility] Rodent Control Worker ID [id number] [facility] Comment:Test Performed by [employer] [facility] 04/21/2011 8:19 EST 04/21/2011 8:23 EST Mary Jauregui MD CHEMISTRY & BLOOD G ORDERABLES Performing Organization Address [facility] Phone Number [facility] [address] [place] [address] * (ABNORMAL) GLUCOSE, GLUCOMETER (04/20/2011 21:18 EST) Glucose, Fingerstick 215(H) 70 - 100 mg/dl [facility] Rodent Control Worker ID [id number] [facility] Comment:Test Performed by [employer] [facility] 04/20/2011 21:1 8 EST 04/20/2011 21:22 EST Mary Jauregui MD CHEMISTRY & BLOOD G ORDERABLES Performing Organization Address [facility] Phone Number [facility] [address] [place] [address] * (ABNORMAL) GLUCOSE, GLUCOMETER (04/20/2011 16:52 EST) Glucose, Fingerstick 168(H) 70 - 100 mg/dl [facility] Rodent Control Worker ID [id number] [facility] Comment:Test Performed by [employer] [facility] 04/20/2011 16:5 2 EST 04/20/2011 16:55 EST Mary Jauregui MD CHEMISTRY & BLOOD G ORDERABLES Performing Organization Address [facility]/State/ZIP Co de Phone Number [facility] [address] [place] [address] * (ABNORMAL) GLUCOSE, GLUCOMETER (04/20/2011 11:53 EST) Glucose, Fingerstick 106(H) 70 - 100 mg/dl [facility] Rodent Control Worker ID [id number] [facility] Comment:Test Performed by [employer] [facility] 04/20/2011 11:5 3 EST 04/20/2011 11:55 EST Mary Jauregui MD CHEMISTRY & BLOOD G ORDERABLES Performing Organization Address [facility] Co de Phone Number [facility] [address] [place] [address] * (ABNORMAL) GLUCOSE, GLUCOMETER (04/20/2011 7:54 EST) Glucose, Fingerstick 174(H) 70 - 100 mg/dl [facility] Rodent Control Worker ID [id number] [facility] Comment:Test Performed by [employer] [facility] 04/20/2011 7:54 EST 04/20/2011 7:57 EST Mary Jauregui MD CHEMISTRY & BLOOD G ORDERABLES Performing Organization Address [facility] de Phone Number [facility] [address] [place] [address] * (ABNORMAL) GLUCOSE, GLUCOMETER (04/19/2011 20:52 EST) Glucose, Fingerstick 191(H) 70 - 100 mg/dl [facility] Rodent Control Worker ID [id number] [facility] Comment:Test Performed by [employer] [facility] 04/19/2011 20:5 2 EST 04/19/2011 20:54 EST Mary Jauregui MD CHEMISTRY & BLOOD G ORDERABLES Performing Organization Address [facility] Co de Phone Number [facility] [address] [place] [address] * (ABNORMAL) GLUCOSE, GLUCOMETER (04/19/2011 16:48 EST) Glucose, Fingerstick 240(H) 70 - 100 mg/dl [facility] Rodent Control Worker ID [id number] [facility] Comment:Test Performed by [employer] [facility] 04/19/2011 16:4 8 EST 04/19/2011 16:53 EST Mary Jauregui MD CHEMISTRY & BLOOD G ORDERABLES Performing Organization Address [facility] Phone Number [facility] [address] [place] [address] * (ABNORMAL) GLUCOSE, GLUCOMETER (04/19/2011 12:05 EST) Glucose, Fingerstick 114(H) 70 - 100 mg/dl [facility] Rodent Control Worker ID [id number] [facility] Comment:Test Performed by [employer] [facility] 04/19/2011 12:0 5 EST 04/19/2011 12:08 EST Mary Jauregui MD CHEMISTRY & BLOOD G ORDERABLES Performing Organization Address [facility] de Phone Number [facility] [address] [place] [address] * (ABNORMAL) GLUCOSE, GLUCOMETER (04/19/2011 8:15 EST) Glucose, Fingerstick 141(H) 70 - 100 mg/dl [facility] Rodent Control Worker ID [id number] [facility] Comment:Test Performed by [employer] 04/19/2011 8:15 EST 04/19/2011 8:26 EST Mary Jauregui MD CHEMISTRY & BLOOD G ORDERABLES Performing Organization Address [facility] Phone Number [facility] [address] [place] [address] * (ABNORMAL) GLUCOSE, GLUCOMETER (04/18/2011 21:23 EST) Glucose, Fingerstick 147(H) 70 - 100 mg/dl [facility] Rodent Control Worker ID [id number] [facility] Comment:Test Performed by [employer] 04/18/2011 21:2 3 EST 04/18/2011 21:28 EST Mary Jauregui MD CHEMISTRY & BLOOD G ORDERABLES Performing Organization Address [facility] Phone Number [facility] [address] [place] [address] * (ABNORMAL) GLUCOSE, GLUCOMETER (04/18/2011 16:51 EST) Glucose, Fingerstick 191(H) 70 - 100 mg/dl [facility] Rodent Control Worker ID [id number] [facility] Comment:Test Performed by [employer] 04/18/2011 16:5 1 EST 04/18/2011 16:59 EST Mary Jauregui MD CHEMISTRY & BLOOD G ORDERABLES Performing Organization Address [facility] Phone Number [facility] [address] [place] [address] * GLUCOSE, GLUCOMETER (04/18/2011 13:34 EST) Glucose, Fingerstick 88 70 - 100 mg/dl [facility] Rodent Control Worker ID [id number] [facility] Comment:Test Performed by [employer] 04/18/2011 13:3 4 EST 04/18/2011 13:36 EST Mary Jauregui MD CHEMISTRY & BLOOD G ORDERABLES Performing Organization Address [facility] Phone Number [facility] [address] [place] [address] * (ABNORMAL) GLUCOSE, GLUCOMETER (04/18/2011 8:01 EST) Glucose, Fingerstick 132(H) 70 - 100 mg/dl [facility] Rodent Control Worker ID [id number] [facility] Comment:Test Performed by [employer] [facility] [facility] 04/18/2011 8:01 EST 04/18/2011 8:07 EST Mary Jauregui MD CHEMISTRY & BLOOD G ORDERABLES Performing Organization Address [facility]/ZIP Co de Phone Number [facility] [address] [place] [address] * (ABNORMAL) GLUCOSE, GLUCOMETER (04/17/2011 21:48 EST) Glucose, Fingerstick 214(H) 70 - 100 mg/dl [facility] Rodent Control Worker ID [id number] [facility] Comment:Test Performed by [employer] [facility] 04/17/2011 21:4 8 EST 04/17/2011 21:51 EST Mary Jauregui MD CHEMISTRY & BLOOD G ORDERABLES Performing Organization Address [facility] Co de Phone Number [facility] [address] [place] [address] * (ABNORMAL) GLUCOSE, GLUCOMETER (04/17/2011 17:05 EST) Glucose, Fingerstick 227(H) 70 - 100 mg/dl [facility] Rodent Control Worker ID [id number] [facility] Comment:Test Performed by [employer] [facility] 04/17/2011 17:0 5 EST 04/17/2011 17:06 EST Mary Jauregui MD CHEMISTRY & BLOOD G ORDERABLES Performing Organization Address [facility] Co de Phone Number [facility] [address] [place] [address] * (ABNORMAL) GLUCOSE, GLUCOMETER (04/17/2011 12:14 EST) Glucose, Fingerstick 166(H) 70 - 100 mg/dl [facility] Rodent Control Worker ID [id number] [facility] Comment:Test Performed by [facility] [facility] 04/17/2011 12:1 4 EST 04/17/2011 12:16 EST Mary Jauregui MD CHEMISTRY & BLOOD G ORDERABLES Performing Organization Address [facility]/ZIP Co de Phone Number [facility] [address] [place] [address] * (ABNORMAL) GLUCOSE, GLUCOMETER (04/17/2011 8:19 EST) Glucose, Fingerstick 214(H) 70 - 100 mg/dl [facility] Rodent Control Worker ID [id number] [facility] Comment:Test Performed by [facility] [facility] 04/17/2011 8:19 EST 04/17/2011 8:20 EST Mary Jauregui MD CHEMISTRY & BLOOD G ORDERABLES Performing Organization Address [facility] Phone Number [facility] [address] [place] [address] * (ABNORMAL) GLUCOSE, GLUCOMETER (04/16/2011 20:39 EST) Glucose, Fingerstick 257(H) 70 - 100 mg/dl [facility] Rodent Control Worker ID [id number] [facility] Comment:Test Performed by [facility] [facility] 04/16/2011 20:3 9 EST 04/16/2011 20:44 EST Mary Jauregui MD CHEMISTRY & BLOOD G ORDERABLES Performing Organization Address [facility] de Phone Number [facility] [address] [place] [address] * (ABNORMAL) GLUCOSE, GLUCOMETER (04/16/2011 17:32 EST) Glucose, Fingerstick 184(H) 70 - 100 mg/dl [facility] Rodent Control Worker ID [id number] [facility] Comment:Test Performed by [facility] [facility] 04/16/2011 17:3 2 EST 04/16/2011 17:34 EST Mary Jauregui MD CHEMISTRY & BLOOD G ORDERABLES Performing Organization Address [facility] de Phone Number [facility] [address] [place] [address] * (ABNORMAL) GLUCOSE, GLUCOMETER (04/16/2011 11:05 EST) Glucose, Fingerstick 240(H) 70 - 100 mg/dl [facility] Rodent Control Worker ID [id number] [facility] Comment:Test Performed by [facility] [facility] 04/16/2011 11:0 5 EST 04/16/2011 11:07 EST Mary Jauregui MD CHEMISTRY & BLOOD G ORDERABLES Performing Organization Address [facility] Phone Number [facility] [address] [place] [address] * (ABNORMAL) GLUCOSE, GLUCOMETER (04/16/2011 8:05 EST) Glucose, Fingerstick 147(H) 70 - 100 mg/dl [facility] Rodent Control Worker ID [id number] [facility] Comment:Test Performed by [facility] [facility] 04/16/2011 8:05 EST 04/16/2011 8:09 EST Mary Jauregui MD CHEMISTRY & BLOOD G ORDERABLES Performing Organization Address [facility] Phone Number [facility] [address] [place] [address] * (ABNORMAL) GLUCOSE, GLUCOMETER (04/15/2011 21:17 EST) Glucose, Fingerstick 149(H) 70 - 100 mg/dl [facility] Rodent Control Worker ID [id number] [facility] Comment:Test Performed by [facility] [facility] 04/15/2011 21:1 7 EST 04/15/2011 21:20 EST Mary Jauregui MD CHEMISTRY & BLOOD G ORDERABLES Performing Organization Address [facility] Phone Number [facility] [address] [place] [address] * (ABNORMAL) GLUCOSE, GLUCOMETER (04/15/2011 16:52 EST) Glucose, Fingerstick 235(H) 70 - 100 mg/dl [facility] Rodent Control Worker ID [id number] [facility] Comment:Test Performed by [facility] [facility] 04/15/2011 16:5 2 EST 04/15/2011 16:54 EST Mary Jauregui MD CHEMISTRY & BLOOD G ORDERABLES Performing Organization Address [facility]/ZIP Co de Phone Number [facility] [address] [place] [address] * (ABNORMAL) GLUCOSE, GLUCOMETER (04/15/2011 11:47 EST) Glucose, Fingerstick 169(H) 70 - 100 mg/dl [facility] Rodent Control Worker ID [id number] [facility] Comment:Test Performed by [facility] [facility] 04/15/2011 11:4 7 EST 04/15/2011 11:49 EST Mary Jauregui MD CHEMISTRY & BLOOD G ORDERABLES Performing Organization Address [facility] de Phone Number [facility] [address] [place] [address] * (ABNORMAL) GLUCOSE, GLUCOMETER (04/15/2011 7:42 EST) Glucose, Fingerstick 212(H) 70 - 100 mg/dl [facility] Rodent Control Worker ID [id number] [facility] Comment:Test Performed by [facility] [facility] 04/15/2011 7:42 EST 04/15/2011 7:46 EST Mary Jauregui MD CHEMISTRY & BLOOD G ORDERABLES Performing Organization Address [facility] de Phone Number [facility] [address] [place] [address] * (ABNORMAL) GLUCOSE, GLUCOMETER (04/15/2011 2:06 EST) Glucose, Fingerstick 108(H) 70 - 100 mg/dl [facility] Rodent Control Worker ID [id number] [facility] Comment:Test Performed by [facility] [facility] 04/15/2011 2:06 EST 04/15/2011 6:18 EST Mary Jauregui MD CHEMISTRY & BLOOD G ORDERABLES Performing Organization Address [facility] Co de Phone Number [facility] [address] [place] [address] * (ABNORMAL) GLUCOSE, GLUCOMETER (04/14/2011 22:27 EST) Glucose, Fingerstick 367(H) 70 - 100 mg/dl [facility] Rodent Control Worker ID [id number] [facility] Comment:Test Performed by [facility] 04/14/2011 22:2 7 EST 04/14/2011 22:51 EST Mary Jauregui MD CHEMISTRY & BLOOD G ORDERABLES Performing Organization Address [facility] Phone Number [facility] [address] [place] [address] * (ABNORMAL) GLUCOSE, GLUCOMETER (04/14/2011 16:49 EST) Glucose, Fingerstick 206(H) 70 - 100 mg/dl [facility] Rodent Control Worker ID [id number] [facility] Comment:Test Performed by [facility] [facility] 04/14/2011 16:4 9 EST 04/14/2011 16:50 EST Mary Jauregui MD CHEMISTRY & BLOOD G ORDERABLES Performing Organization Address [facility] de Phone Number [facility] [address] [place] [address] * (ABNORMAL) GLUCOSE, GLUCOMETER (04/14/2011 12:09 EST) Glucose, Fingerstick 238(H) 70 - 100 mg/dl [facility] Rodent Control Worker ID [id number] [facility] Comment:Test Performed by [facility] [facility] 04/14/2011 12:0 9 EST 04/14/2011 12:17 EST Mary Jauregui MD CHEMISTRY & BLOOD G ORDERABLES Performing Organization Address [facility] de Phone Number [facility] [address] [place] [address] * (ABNORMAL) GLUCOSE, GLUCOMETER (04/14/2011 7:58 EST) Glucose, Fingerstick 143(H) 70 - 100 mg/dl [facility] Rodent Control Worker ID [id number] [facility] Comment:Test Performed by [facility] 04/14/2011 7:58 EST 04/14/2011 8:01 EST Mary Jauregui MD CHEMISTRY & BLOOD G ORDERABLES Performing Organization Address [facility] Phone Number [facility] [address] [place] [address] * (ABNORMAL) GLUCOSE, GLUCOMETER (04/13/2011 22:35 EST) Glucose, Fingerstick 209(H) 70 - 100 mg/dl [facility] Rodent Control Worker ID [id number] [facility] Comment:Test Performed by [facility] [facility] 04/13/2011 22:3 5 EST 04/13/2011 22:38 EST Mary Jauregui MD CHEMISTRY & BLOOD G ORDERABLES Performing Organization Address [facility] Phone Number [facility] [address] [place] [address] * (ABNORMAL) GLUCOSE, GLUCOMETER (04/13/2011 21:12 EST) Glucose, Fingerstick 237(H) 70 - 100 mg/dl [facility] Rodent Control Worker ID [id number] [facility] Comment:Test Performed by [facility] [facility] 04/13/2011 21:1 2 EST 04/13/2011 21:15 EST Mary Jauregui MD CHEMISTRY & BLOOD G ORDERABLES Performing Organization Address [facility] Phone Number [facility] [address] [place] [address] * (ABNORMAL) GLUCOSE, GLUCOMETER (04/13/2011 17:14 EST) Glucose, Fingerstick 254(H) 70 - 100 mg/dl [facility] Rodent Control Worker ID [id number] [facility] Comment:Test Performed by [facility] 04/13/2011 17:1 4 EST 04/13/2011 17:15 EST Mary Jauregui MD CHEMISTRY & BLOOD G ORDERABLES Performing Organization Address [facility] Co de Phone Number [facility] [address] [place] [address] * (ABNORMAL) GLUCOSE, GLUCOMETER (04/13/2011 11:24 EST) Glucose, Fingerstick 211(H) 70 - 100 mg/dl [facility] Rodent Control Worker ID [id number] [facility] Comment:Test Performed by [facility] 04/13/2011 11:2 4 EST 04/13/2011 11:26 EST Mary Jauregui MD CHEMISTRY & BLOOD G ORDERABLES Performing Organization Address [facility] de Phone Number [facility] [address] [place] [address] * (ABNORMAL) GLUCOSE, GLUCOMETER (04/13/2011 7:39 EST) Glucose, Fingerstick 164(H) 70 - 100 mg/dl [facility] Rodent Control Worker ID [id number] [facility] Comment:Test Performed by [facility] [facility] 04/13/2011 7:39 EST 04/13/2011 7:40 EST Mary Jauregui MD CHEMISTRY & BLOOD G ORDERABLES Performing Organization Address [facility] Phone Number [facility] [address] [place] [address] * (ABNORMAL) GLUCOSE, GLUCOMETER (04/12/2011 20:47 EST) Glucose, Fingerstick 208(H) 70 - 100 mg/dl [facility] Rodent Control Worker ID [id number] [facility] Comment:Test Performed by [facility] 04/12/2011 20:4 7 EST 04/13/2011 1:47 EST Mary Jauregui MD CHEMISTRY & BLOOD G ORDERABLES Performing Organization Address [facility] Co de Phone Number [facility] [address] [place] [address] * (ABNORMAL) GLUCOSE, GLUCOMETER (04/12/2011 17:00 EST) Glucose, Fingerstick 223(H) 70 - 100 mg/dl [facility] Rodent Control Worker ID [id number] [facility] Comment:Test Performed by [facility] 04/12/2011 17:0 0 EST 04/12/2011 17:02 EST Mary Jauregui MD CHEMISTRY & BLOOD G ORDERABLES Performing Organization Address [facility] de Phone Number [facility] [address] [place] [address] * (ABNORMAL) GLUCOSE, GLUCOMETER (04/12/2011 11:54 EST) Glucose, Fingerstick 183(H) 70 - 100 mg/dl [facility] Rodent Control Worker ID [id number] [facility] Comment:Test Performed by [facility] 04/12/2011 11:5 4 EST 04/12/2011 11:55 EST Mary Jauregui MD CHEMISTRY & BLOOD G ORDERABLES Performing Organization Address [facility] de Phone Number [facility] [address] [place] [address] * (ABNORMAL) GLUCOSE, GLUCOMETER (04/12/2011 7:34 EST) Glucose, Fingerstick 173(H) 70 - 100 mg/dl [facility] Rodent Control Worker ID [id number] [facility] Comment:Test Performed by [facility] 04/12/2011 7:34 EST 04/12/2011 8:00 EST Mary Jauregui MD CHEMISTRY & BLOOD G ORDERABLES Performing Organization Address [facility] Phone Number [facility] [address] [place] [address] * (ABNORMAL) GLUCOSE, GLUCOMETER (04/11/2011 20:57 EST) Glucose, Fingerstick 242(H) 70 - 100 mg/dl [facility] Rodent Control Worker ID [id number] [facility] Comment:Test Performed by [employer] 04/11/2011 20:5 7 EST 04/11/2011 21:01 EST Mary Jauregui MD CHEMISTRY & BLOOD G ORDERABLES Performing Organization Address [facility] Phone Number [facility] [address] [place] [address] * (ABNORMAL) GLUCOSE, GLUCOMETER (04/11/2011 17:14 EST) Glucose, Fingerstick 164(H) 70 - 100 mg/dl [facility] Rodent Control Worker ID [id number] [facility] Comment:Test Performed by [employer] 04/11/2011 17:1 4 EST 04/11/2011 17:17 EST Mary Jauregui MD CHEMISTRY & BLOOD G ORDERABLES Performing Organization Address [facility] Phone Number [facility] [address] [place] [address] * (ABNORMAL) GLUCOSE, GLUCOMETER (04/11/2011 7:58 EST) Glucose, Fingerstick 106(H) 70 - 100 mg/dl [facility] Rodent Control Worker ID [id number] [facility] Comment:Test Performed by [employer] 04/11/2011 7:58 EST 04/11/2011 8:08 EST Mary Jauregui MD CHEMISTRY & BLOOD G ORDERABLES Performing Organization Address [facility] Phone Number [facility] [address] [place] [address] * (ABNORMAL) GLUCOSE, GLUCOMETER (04/10/2011 21:09 EST) Glucose, Fingerstick 280(H) 70 - 100 mg/dl [facility] Rodent Control Worker ID [id number] [facility] Comment:Test Performed by [employer] 04/10/2011 21:0 9 EST 04/10/2011 21:11 EST Mary Jauregui MD CHEMISTRY & BLOOD G ORDERABLES Performing Organization Address [facility] Co de Phone Number [facility] [address] [place] [address] * (ABNORMAL) GLUCOSE, GLUCOMETER (04/10/2011 17:00 EST) Glucose, Fingerstick 226(H) 70 - 100 mg/dl [facility] Rodent Control Worker ID [id number] [facility] Comment:Test Performed by [employer] 04/10/2011 17:0 0 EST 04/10/2011 17:02 EST Mary Jauregui MD CHEMISTRY & BLOOD G ORDERABLES Performing Organization Address [facility] Phone Number [facility] [address] [place] [address] * (ABNORMAL) GLUCOSE, GLUCOMETER (04/10/2011 11:55 EST) Glucose, Fingerstick 150(H) 70 - 100 mg/dl [facility] Rodent Control Worker ID [id number] [facility] Comment:Test Performed by [employer] [facility] 04/10/2011 11:5 5 EST 04/10/2011 11:57 EST Mary Jauregui MD CHEMISTRY & BLOOD G ORDERABLES Performing Organization Address [facility] Phone Number [facility] [address] [place] [address] * (ABNORMAL) GLUCOSE, GLUCOMETER (04/10/2011 7:59 EST) Glucose, Fingerstick 221(H) 70 - 100 mg/dl [facility] Rodent Control Worker ID [id number] [facility] Comment:Test Performed by [employer] 04/10/2011 7:59 EST 04/10/2011 8:02 EST Mary Jauregui MD CHEMISTRY & BLOOD G ORDERABLES Performing Organization Address [facility] Co de Phone Number [facility] [address] [place] [address] * (ABNORMAL) GLUCOSE, GLUCOMETER (04/09/2011 21:20 EST) Glucose, Fingerstick 295(H) 70 - 100 mg/dl [facility] Rodent Control Worker ID [id number] [facility] Comment:Test Performed by [employer] 04/09/2011 21:2 0 EST 04/09/2011 21:22 EST Mary Jauregui MD CHEMISTRY & BLOOD G ORDERABLES Performing Organization Address [facility] de Phone Number [facility] [address] [place] [address] * (ABNORMAL) GLUCOSE, GLUCOMETER (04/09/2011 17:29 EST) Glucose, Fingerstick 168(H) 70 - 100 mg/dl [facility] Rodent Control Worker ID [id number] [facility] Comment:Test Performed by [employer] [facility] 04/09/2011 17:2 9 EST 04/09/2011 17:30 EST Mary Jauregui MD CHEMISTRY & BLOOD G ORDERABLES Performing Organization Address [facility] de Phone Number [facility] [address] [place] [address] * (ABNORMAL) GLUCOSE, GLUCOMETER (04/09/2011 12:11 EST) Glucose, Fingerstick 218(H) 70 - 100 mg/dl [facility] Rodent Control Worker ID [id number] [facility] Comment:Test Performed by [employer] [facility] 04/09/2011 12:1 1 EST 04/09/2011 12:13 EST Mary Jauregui MD CHEMISTRY & BLOOD G ORDERABLES Performing Organization Address [facility] de Phone Number [facility] [address] [place] [address] * (ABNORMAL) GLUCOSE, GLUCOMETER (04/09/2011 10:49 EST) Glucose, Fingerstick 221(H) 70 - 100 mg/dl [facility] Rodent Control Worker ID [id number] [facility] Comment:Test Performed by [employer] [facility] 04/09/2011 10:4 9 EST 04/09/2011 10:53 EST Mary Jauregui MD CHEMISTRY & BLOOD G ORDERABLES Performing Organization Address [facility] Phone Number [facility] [address] [place] [address] * (ABNORMAL) GLUCOSE, GLUCOMETER (04/09/2011 7:59 EST) Glucose, Fingerstick 177(H) 70 - 100 mg/dl [facility] Rodent Control Worker ID [id number] [facility] Comment:Test Performed by [employer] 04/09/2011 7:59 EST 04/09/2011 8:02 EST Mary Jauregui MD CHEMISTRY & BLOOD G ORDERABLES Performing Organization Address [facility] Phone Number [facility] [address] [place] [address] * (ABNORMAL) GLUCOSE, GLUCOMETER (04/08/2011 21:04 EST) Glucose, Fingerstick 228(H) 70 - 100 mg/dl [facility] Rodent Control Worker ID [id number] [facility] Comment:Test Performed by [employer] [facility] 04/08/2011 21:0 4 EST 04/08/2011 21:08 EST Mary Jauregui MD CHEMISTRY & BLOOD G ORDERABLES Performing Organization Address [facility] Phone Number [facility] [address] [place] [address] * (ABNORMAL) GLUCOSE, GLUCOMETER (04/08/2011 17:22 EST) Glucose, Fingerstick 163(H) 70 - 100 mg/dl [facility] Rodent Control Worker ID [id number] [facility] Comment:Test Performed by [employer] [facility] 04/08/2011 17:2 2 EST 04/08/2011 17:25 EST Mary Jauregui MD CHEMISTRY & BLOOD G ORDERABLES Performing Organization Address [facility] Co de Phone Number [facility] [address] [place] [address] * (ABNORMAL) GLUCOSE, GLUCOMETER (04/08/2011 11:41 EST) Glucose, Fingerstick 254(H) 70 - 100 mg/dl [facility] Rodent Control Worker ID [id number] [facility] Comment:Test Performed by [employer] [facility] 04/08/2011 11:4 1 EST 04/08/2011 11:43 EST Mary Jauregui MD CHEMISTRY & BLOOD G ORDERABLES Performing Organization Address [facility] de Phone Number [facility] [address] [place] [address] * (ABNORMAL) GLUCOSE, GLUCOMETER (04/08/2011 8:08 EST) Glucose, Fingerstick 251(H) 70 - 100 mg/dl [facility] Rodent Control Worker ID [id number] [facility] Comment:Test Performed by [employer] 04/08/2011 8:08 EST 04/08/2011 8:11 EST Mary Jauregui MD CHEMISTRY & BLOOD G ORDERABLES Performing Organization Address [facility] de Phone Number [facility] [address] [place] [address] * (ABNORMAL) GLUCOSE, GLUCOMETER (04/07/2011 23:56 EST) Glucose, Fingerstick 203(H) 70 - 100 mg/dl [facility] Rodent Control Worker ID [id number] [facility] Comment:Test Performed by [employer] [facility] 04/07/2011 23:5 6 EST 04/07/2011 23:59 EST Mary Jauregui MD CHEMISTRY & BLOOD G ORDERABLES Performing Organization Address [facility] Co de Phone Number [facility] [address] [place] [address] * (ABNORMAL) GLUCOSE, GLUCOMETER (04/07/2011 20:46 EST) Glucose, Fingerstick 271(H) 70 - 100 mg/dl [facility] Rodent Control Worker ID [id number] [facility] Comment:Test Performed by [employer] [facility] 04/07/2011 20:4 6 EST 04/07/2011 20:48 EST Mary Jauregui MD CHEMISTRY & BLOOD G ORDERABLES Performing Organization Address [facility] de Phone Number [facility] [address] [place] [address] * (ABNORMAL) GLUCOSE, GLUCOMETER (04/07/2011 17:02 EST) Glucose, Fingerstick 168(H) 70 - 100 mg/dl [facility] Rodent Control Worker ID [id number] [facility] Comment:Test Performed by [employer] 04/07/2011 17:0 2 EST 04/07/2011 17:04 EST Mary Jauregui MD CHEMISTRY & BLOOD G ORDERABLES Performing Organization Address [facility] de Phone Number [facility] [address] [place] [address] * (ABNORMAL) GLUCOSE, GLUCOMETER (04/07/2011 11:46 EST) Glucose, Fingerstick 255(H) 70 - 100 mg/dl [facility] Rodent Control Worker ID [id number] [facility] Comment:Test Performed by [employer] 04/07/2011 11:4 6 EST 04/07/2011 11:49 EST Mary Jauregui MD CHEMISTRY & BLOOD G ORDERABLES Performing Organization Address [facility] Phone Number [facility] [address] [place] [address] * ECG REPORT - SCANNED (04/07/2011 8:08 EST) 04/07/2011 8:08 EST Narrative Transcriptions Community Development Officer, Scan - 04/07/2011 8:08 EST Scan Community Development Officer PROCEDURE/MINOR SURG ICAL ORDERABLES * (ABNORMAL) GLUCOSE, GLUCOMETER (04/07/2011 7:36 EST) Glucose, Fingerstick 163(H) 70 - 100 mg/dl [facility] Rodent Control Worker ID [id number] [facility] Comment:Test Performed by [employer] 04/07/2011 7:36 EST 04/07/2011 7:39 EST Mary Jauregui MD CHEMISTRY & BLOOD G ORDERABLES Performing Organization Address [facility] Co de Phone Number [facility] [address] [place] [address] * (ABNORMAL) GLUCOSE, GLUCOMETER (04/06/2011 21:21 EST) Glucose, Fingerstick 216(H) 70 - 100 mg/dl [facility] Rodent Control Worker ID [id number] [facility] Comment:Test Performed by [employer] 04/06/2011 21:2 1 EST 04/06/2011 21:31 EST Mary Jauregui MD CHEMISTRY & BLOOD G ORDERABLES Performing Organization Address [facility] de Phone Number [facility] [address] [place] [address] * (ABNORMAL) GLUCOSE, GLUCOMETER (04/06/2011 19:25 EST) Glucose, Fingerstick 272(H) 70 - 100 mg/dl [facility] Rodent Control Worker ID [id number] [facility] Comment:Test Performed by [employer] 04/06/2011 19:2 5 EST 04/06/2011 19:30 EST Mary Jauregui MD CHEMISTRY & BLOOD G ORDERABLES Performing Organization Address [facility] Co de Phone Number [facility] [address] [place] [address] * (ABNORMAL) GLUCOSE, GLUCOMETER (04/06/2011 12:06 EST) Glucose, Fingerstick 200(H) 70 - 100 mg/dl [facility] Rodent Control Worker ID [id number] [facility] Comment:Test Performed by [employer] 04/06/2011 12:0 6 EST 04/06/2011 12:07 EST Mary Jauregui MD CHEMISTRY & BLOOD G ORDERABLES Performing Organization Address [facility] de Phone Number [facility] [address] [place] [address] * (ABNORMAL) GLUCOSE, GLUCOMETER (04/06/2011 8:02 EST) Glucose, Fingerstick 267(H) 70 - 100 mg/dl [facility] Rodent Control Worker ID [id number] [facility] Comment:Test Performed by [employer] 04/06/2011 8:02 EST 04/06/2011 8:04 EST Mary Jauregui MD CHEMISTRY & BLOOD G ORDERABLES Performing Organization Address [facility] de Phone Number [facility] [address] [place] [address] * (ABNORMAL) GLUCOSE, GLUCOMETER (04/05/2011 21:37 EST) Glucose, Fingerstick 250(H) 70 - 100 mg/dl [facility] Rodent Control Worker ID [id number] [facility] Comment:Test Performed by [employer] 04/05/2011 21:3 7 EST 04/05/2011 23:01 EST Mary Jauregui MD CHEMISTRY & BLOOD G ORDERABLES Performing Organization Address [facility] Co de Phone Number [facility] [address] [place] [address] * (ABNORMAL) GLUCOSE, GLUCOMETER (04/05/2011 17:22 EST) Glucose, Fingerstick 178(H) 70 - 100 mg/dl [facility] Rodent Control Worker ID [id number] [facility] Comment:Test Performed by [employer] 04/05/2011 17:2 2 EST 04/05/2011 17:23 EST Mary Jauregui MD CHEMISTRY & BLOOD G ORDERABLES Performing Organization Address [facility] Phone Number [facility] [address] [place] [address] * (ABNORMAL) GLUCOSE, GLUCOMETER (04/05/2011 11:52 EST) Glucose, Fingerstick 260(H) 70 - 100 mg/dl [facility] Rodent Control Worker ID [id number] [facility] Comment:Test Performed by [employer] 04/05/2011 11:5 2 EST 04/05/2011 11:54 EST Mary Jauregui MD CHEMISTRY & BLOOD G ORDERABLES Performing Organization Address [facility] Phone Number [facility] [address] [place] [address] * (ABNORMAL) GLUCOSE, GLUCOMETER (04/05/2011 8:13 EST) Glucose, Fingerstick 155(H) 70 - 100 mg/dl [facility] Rodent Control Worker ID [id number] [facility] Comment:Test Performed by [employer] 04/05/2011 8:13 EST 04/05/2011 8:18 EST Mary Jauregui MD CHEMISTRY & BLOOD G ORDERABLES Performing Organization Address [facility] Phone Number [facility] [address] [place] [address] * (ABNORMAL) GLUCOSE, GLUCOMETER (04/04/2011 20:50 EST) Glucose, Fingerstick 200(H) 70 - 100 mg/dl [facility] Rodent Control Worker ID [id number] [facility] Comment:Test Performed by [employer] 04/04/2011 20:5 0 EST 04/04/2011 20:54 EST Mary Jauregui MD CHEMISTRY & BLOOD G ORDERABLES Performing Organization Address City/[facility] Co de Phone Number [facility] [address] [place] [address] * (ABNORMAL) GLUCOSE, GLUCOMETER (04/04/2011 16:49 EST) Glucose, Fingerstick 124(H) 70 - 100 mg/dl [facility] Rodent Control Worker ID [id number] [facility] Comment:Test Performed by [facility] Services 04/04/2011 16:4 9 EST 04/04/2011 16:52 EST Mary Jauregui MD CHEMISTRY & BLOOD G ORDERABLES Performing Organization Address [facility] Co de Phone Number [facility] [address] [place] [address] * CONSULT NUTRITION (04/04/2011 14:55 EST) Narrative POINT OF CARE - 04/04/2011 14:[address] ? 04/04/2011 14:55 Nutrition consult for diet ed d/t pt.overeating and has diabetes Pt. Unwilling to speak with me today, is sleeping, in dark room. Left diabetes pack for his review Diet: [facility] Labs: glu-130-200's ??03/22 B12 = 381 Meds: glyburide, metformin, aspart with meals A: Un able to meet with pt today, will re try on Thursday. Pt has diabetes ed info in his room. Most recent B12 at the low end of normal, at risk for B12 deficiency d/t metformin use, suggest check methylmalonic acid to assess for B12 deficiency Suggest p.o. MVM to assure pt. Meets needs for vitamins. likely vitamin D deficient d/t age, season and current illness. Please check vitamin D level Rec: 1) will try to meet with pt again on Thursday 2) please check methylmalonic acid and vitamin D 3) p.o. Multivitamin and mineral daily Ongoing monitor and follow up BENITO MEJIA RD Pager [phone] Procedure Note Benito Mejia RD - 04/04/2011 14:49 EST Nutrition consult for diet ed d/t pt.overeating and has diabetes Pt. Unwilling to speak with me today, is sleeping, in dark room. Leftdiabetes pack for his review Diet: CCD Labs: glu-130-200's 03/22 B12 = 381 Meds: glyburide, metformin, aspart with meals A: Un able to meet with pt today, will re try on Thursday. Pt has diabetesed info in his room. Most recent B12 at the low end of normal, at risk for B12 deficiency d/tmetformin use, suggest check methylmalonic acid to assess for [id number] Suggest p.o. MVM to assure pt. Meets needs for vitamins. likely vitamin Ddeficient d/t age, season and current illness. Please check vitamin Dlevel Rec: 1) will try to meet with pt again on Thursday 2) please check methylmalonic acid and vitamin D 3) p.o. Multivitamin and mineral daily Ongoing monitor and follow up BENITO MEJIA RD Pager [phone] Mary Jauregiu MD INPATIENT CONSULT O RDERABLES Performing Organization Address City/[facility]/ZIP Co de Phone Number POINT OF CARE * (ABNORMAL) GLUCOSE, GLUCOMETER (04/04/2011 11:12 EST) Glucose, Fingerstick 272(H) 70 - 100 mg/dl [facility] Rodent Control Worker ID [id number] [facility] Comment:Test Performed by [employer] 04/04/2011 11:1 2 EST 04/04/2011 11:25 EST Mary Jauregui MD CHEMISTRY & BLOOD G ORDERABLES Performing Organization Address City/[facility]/ZIP Co de Phone Number [facility] [address] [place] [address] * (ABNORMAL) GLUCOSE, GLUCOMETER (04/04/2011 8:28 EST) Glucose, Fingerstick 139(H) 70 - 100 mg/dl [facility] Rodent Control Worker ID [id number] [facility] Comment:Test Performed by [facility] [employer] 04/04/2011 8:28 EST 04/04/2011 8:40 EST Mary Jauregui MD CHEMISTRY & BLOOD G ORDERABLES Performing Organization Address [facility] Co de Phone Number [facility] [address] [place] [address] * (ABNORMAL) GLUCOSE, GLUCOMETER (04/03/2011 16:51 EST) Glucose, Fingerstick 169(H) 70 - 100 mg/dl [facility] Rodent Control Worker ID [id number] [facility] Comment:Test Performed by [employer] [facility] 04/03/2011 16:5 1 EST 04/03/2011 16:53 EST Mary Jauregui MD CHEMISTRY & BLOOD G ORDERABLES Performing Organization Address [facility] de Phone Number [facility] [address] [place] [address] * (ABNORMAL) GLUCOSE, GLUCOMETER (04/03/2011 11:58 EST) Glucose, Fingerstick 241(H) 70 - 100 mg/dl [facility] Rodent Control Worker ID [id number] [facility] Comment:Test Performed by [employer] 04/03/2011 11:5 8 EST 04/03/2011 12:01 EST Mary Jauregui MD CHEMISTRY & BLOOD G ORDERABLES Performing Organization Address [facility] de Phone Number [facility] [address] [place] [address] * (ABNORMAL) GLUCOSE, GLUCOMETER (04/03/2011 7:53 EST) Glucose, Fingerstick 195(H) 70 - 100 mg/dl [facility] Rodent Control Worker ID [id number] [facility] Comment:Test Performed by [employer] 04/03/2011 7:53 EST 04/03/2011 7:54 EST Mary Jauregui MD CHEMISTRY & BLOOD G ORDERABLES Performing Organization Address [facility] Co de Phone Number [facility] [address] [place] [address] * (ABNORMAL) GLUCOSE, GLUCOMETER (04/02/2011 20:30 EST) Glucose, Fingerstick 214(H) 70 - 100 mg/dl [facility] Rodent Control Worker ID [id number] [facility] Comment:Test Performed by [employer] 04/02/2011 20:3 0 EST 04/02/2011 20:32 EST Mary Jauregui MD CHEMISTRY & BLOOD G ORDERABLES Performing Organization Address [facility] Co de Phone Number [facility] [address] [place] [address] * (ABNORMAL) GLUCOSE, GLUCOMETER (04/02/2011 16:50 EST) Glucose, Fingerstick 131(H) 70 - 100 mg/dl [facility] Rodent Control Worker ID [id number] [facility] Comment:Test Performed by [employer] [facility] 04/02/2011 16:5 0 EST 04/02/2011 16:52 EST Mary Jauregui MD CHEMISTRY & BLOOD G ORDERABLES Performing Organization Address [facility] de Phone Number [facility] [address] [place] [address] * (ABNORMAL) GLUCOSE, GLUCOMETER (04/02/2011 11:51 EST) Glucose, Fingerstick 277(H) 70 - 100 mg/dl [facility] Rodent Control Worker ID [id number] [facility] Comment:Test Performed by [employer] [facility] 04/02/2011 11:5 1 EST 04/02/2011 11:52 EST Mary Jauregui MD CHEMISTRY & BLOOD G ORDERABLES Performing Organization Address [facility] de Phone Number [facility] [address] [place] [address] * (ABNORMAL) GLUCOSE, GLUCOMETER (04/02/2011 10:09 EST) Glucose, Fingerstick 184(H) 70 - 100 mg/dl [facility] Rodent Control Worker ID [id number] [facility] Comment:Test Performed by [employer] [facility] 04/02/2011 10:0 9 EST 04/02/2011 10:10 EST Sajan Stanford MD CHEMISTRY & BLOOD GA S ORDERABLES Performing Organization Address [facility] Phone Number [facility] [address] [place] [address] * (ABNORMAL) GLUCOSE, GLUCOMETER (04/02/2011 8:03 EST) Glucose, Fingerstick 130(H) 70 - 100 mg/dl [facility] Rodent Control Worker ID [id number] [facility] Comment:Test Performed by [employer] [facility] 04/02/2011 8:03 EST 04/02/2011 8:06 EST Sajan Stanford MD CHEMISTRY & BLOOD GA S ORDERABLES Performing Organization Address [facility] Phone Number [facility] [address] [place] [address] * (ABNORMAL) GLUCOSE, GLUCOMETER (04/01/2011 21:19 EST) Glucose, Fingerstick 264(H) 70 - 100 mg/dl [facility] Rodent Control Worker ID [id number] [facility] Comment:Test Performed by [employer] [facility] 04/01/2011 21:1 9 EST 04/01/2011 21:22 EST Sajan Stanford MD CHEMISTRY & BLOOD GA S ORDERABLES Performing Organization Address [facility] Phone Number [facility] [address] [place] [address] * (ABNORMAL) GLUCOSE, GLUCOMETER (04/01/2011 17:03 EST) Glucose, Fingerstick 200(H) 70 - 100 mg/dl [facility] Rodent Control Worker ID [id number] [facility] Comment:Test Performed by [employer] [facility] [facility] 04/01/2011 17:0 3 EST 04/01/2011 17:06 EST Sajan Stanford MD CHEMISTRY & BLOOD GA S ORDERABLES Performing Organization Address [facility] Co de Phone Number [facility] [address] [place] [address] * (ABNORMAL) GLUCOSE, GLUCOMETER (04/01/2011 11:54 EST) Glucose, Fingerstick 187(H) 70 - 100 mg/dl [facility] Rodent Control Worker ID [id number] [facility] Comment:Test Performed by Nu [facility]sing [employer] 04/01/2011 11:5 4 EST 04/01/2011 11:55 EST Sajan Stanford MD CHEMISTRY & BLOOD GA S ORDERABLES Performing Organization Address [facility] de Phone Number [facility] [address] [place] [address] * (ABNORMAL) GLUCOSE, GLUCOMETER (04/01/2011 8:00 EST) Glucose, Fingerstick 146(H) 70 - 100 mg/dl [facility] Rodent Control Worker ID [id number] [facility] Comment:Test Performed by rsing [employer] 04/01/2011 8:00 EST 04/01/2011 8:03 EST Sajan Stanford MD CHEMISTRY & BLOOD GA S ORDERABLES Performing Organization Address [facility] Phone Number [facility] [address] [place] [address] * NORTRIPTYLINE (03/31/2011 20:54 EST) Nortriptyline 87 ng/mL [facility] Comment: (Note) -- REFERENCE VALUE -- 70-170 (Therapeutic concentration), >=500 (Toxic concentration) Performed by: [facility], [address], [place] [address], Assembler Adjuster: Yumiko Katz, Ph.D. Blood specimen (specimen) 03/31/2011 20:54 EST 03/31/2011 21:20 EST Arthur Davila MD CHEMISTRY & BLOOD G ORDERABLES Performing Organization Address [facility] Co de Phone Number [facility] [address] [place] [address] * (ABNORMAL) GLUCOSE, GLUCOMETER (03/31/2011 20:47 EST) Glucose, Fingerstick 334(H) 70 - 100 mg/dl [facility] Rodent Control Worker ID [id number] [facility] Comment:Test Performed by [facility] 03/31/2011 20:4 7 EST 03/31/2011 20:49 EST Sajan Stanford MD CHEMISTRY & BLOOD GA S ORDERABLES Performing Organization Address [facility] de Phone Number [facility] [address] [place] [address] * (ABNORMAL) GLUCOSE, GLUCOMETER (03/31/2011 17:12 EST) Glucose, Fingerstick 109(H) 70 - 100 mg/dl [facility] Rodent Control Worker ID [id number] [facility] Comment:Test Performed by [facility] [facility] 03/31/2011 17:1 2 EST 03/31/2011 17:14 EST Sajan Stanford MD CHEMISTRY & BLOOD GA S ORDERABLES Performing Organization Address [facility] de Phone Number [facility] [address] [place] [address] * (ABNORMAL) GLUCOSE, GLUCOMETER (03/31/2011 11:29 EST) Glucose, Fingerstick 255(H) 70 - 100 mg/dl [facility] Rodent Control Worker ID [id number] [facility] Comment:Test Performed by [facility] 03/31/2011 11:2 9 EST 03/31/2011 11:31 EST Sajan Stanford MD CHEMISTRY & BLOOD GA S ORDERABLES Performing Organization Address [facility]/ZIP Co de Phone Number [facility] [address] [place] [address] * (ABNORMAL) GLUCOSE, GLUCOMETER (03/31/2011 8:39 EST) Glucose, Fingerstick 128(H) 70 - 100 mg/dl [facility] Rodent Control Worker ID [id number] [facility] Comment:Test Performed by [facility] [facility] 03/31/2011 8:39 EST 03/31/2011 8:46 EST Sajan Stanford MD CHEMISTRY & BLOOD GA S ORDERABLES Performing Organization Address [facility]/ZIP Co de Phone Number [facility] [address] [place] [address] * (ABNORMAL) GLUCOSE, GLUCOMETER (03/30/2011 20:58 EST) Glucose, Fingerstick 238(H) 70 - 100 mg/dl [facility] Rodent Control Worker ID [id number] [facility] Comment:Test Performed by [facility] [facility] 03/30/2011 20:5 8 EST 03/30/2011 21:03 EST Sajan Stanford MD CHEMISTRY & BLOOD GA S ORDERABLES Performing Organization Address City/[facility]/ZIP Co de Phone Number [facility] [address] [place] [address] * (ABNORMAL) GLUCOSE, GLUCOMETER (03/30/2011 16:54 EST) Glucose, Fingerstick 171(H) 70 - 100 mg/dl [facility] Rodent Control Worker ID [id number] [facility] Comment:Test Performed by [facility] [facility] 03/30/2011 16:5 4 EST 03/30/2011 16:57 EST Sajan Stanford MD CHEMISTRY & BLOOD GA S ORDERABLES [facility] [address] [place] [address] * (ABNORMAL) GLUCOSE, GLUCOMETER (03/30/2011 11:53 EST) Glucose, Fingerstick 257(H) 70 - 100 mg/dl [facility] Rodent Control Worker ID [id number] [facility] Comment:Test Performed by [facility] [facility] 03/30/2011 11:5 3 EST 03/30/2011 11:56 EST Sajan Stanford MD CHEMISTRY & BLOOD GA S ORDERABLES Performing Organization Address [facility] Co de Phone Number [facility] [address] [place] [address] * (ABNORMAL) GLUCOSE, GLUCOMETER (03/30/2011 7:42 EST) Glucose, Fingerstick 125(H) 70 - 100 mg/dl [facility] Rodent Control Worker ID [id number] [facility] Comment:Test Performed by [facility] 03/30/2011 7:42 EST 03/30/2011 7:47 EST Sajan Stanford MD CHEMISTRY & BLOOD GA S ORDERABLES Performing Organization Address [facility] Co de Phone Number [facility] [address] [place] [address] * (ABNORMAL) GLUCOSE, GLUCOMETER (03/30/2011 0:13 EST) Glucose, Fingerstick 185(H) 70 - 100 mg/dl [facility] Rodent Control Worker ID [id number] [facility] Comment:Test Performed by [facility] [facility] 03/30/2011 0:13 EST 03/30/2011 5:34 EST Sajan Stanford MD CHEMISTRY & BLOOD GA S ORDERABLES Performing Organization Address City/[facility] Co de Phone Number [facility] [address] [place] [address] * (ABNORMAL) GLUCOSE, GLUCOMETER (03/29/2011 20:47 EST) Glucose, Fingerstick 344(H) 70 - 100 mg/dl [facility] Rodent Control Worker ID [id number] [facility] Comment:Test Performed by [facility] [facility] 03/29/2011 20:4 7 EST 03/29/2011 20:51 EST Sajan Stanford MD CHEMISTRY & BLOOD GA S ORDERABLES Performing Organization Address [facility] Phone Number [facility] [address] [place] [address] * (ABNORMAL) GLUCOSE, GLUCOMETER (03/29/2011 17:06 EST) Glucose, Fingerstick 138(H) 70 - 100 mg/dl [facility] Rodent Control Worker ID [id number] [facility] Comment:Test Performed by [facility] [facility] 03/29/2011 17:0 6 EST 03/29/2011 17:08 EST Sajan Stanford MD CHEMISTRY & BLOOD GA S ORDERABLES Performing Organization Address [facility] Phone Number [facility] [address] [place] [address] * (ABNORMAL) GLUCOSE, GLUCOMETER (03/29/2011 12:19 EST) Glucose, Fingerstick 217(H) 70 - 100 mg/dl [facility] Rodent Control Worker ID [id number] [facility] Comment:Test Performed by [facility] [facility] 03/29/2011 12:1 9 EST 03/29/2011 12:21 EST Sajan Stanford MD CHEMISTRY & BLOOD GA S ORDERABLES Performing Organization Address [facility] Phone Number [facility] [address] [place] [address] * (ABNORMAL) GLUCOSE, GLUCOMETER (03/29/2011 7:52 EST) Glucose, Fingerstick 101(H) 70 - 100 mg/dl [facility] Rodent Control Worker ID [id number] [facility] Comment:Test Performed by [facility] [facility] 03/29/2011 7:52 EST 03/29/2011 7:55 EST Sajan Stanford MD CHEMISTRY & BLOOD GA S ORDERABLES Performing Organization Address City/[facility]/ZIP Co de Phone Number [facility] [address] [place] [address] * (ABNORMAL) GLUCOSE, GLUCOMETER (03/28/2011 21:14 EST) Glucose, Fingerstick 214(H) 70 - 100 mg/dl [facility] Rodent Control Worker ID [id number] [facility] Comment:Test Performed by [facility] [facility] 03/28/2011 21:1 4 EST 03/28/2011 21:17 EST Sajan Stanford MD CHEMISTRY & BLOOD GA S ORDERABLES Performing Organization Address [facility] Co de Phone Number [facility] [address] [place] [address] * (ABNORMAL) GLUCOSE, GLUCOMETER (03/28/2011 17:14 EST) Glucose, Fingerstick 218(H) 70 - 100 mg/dl [facility] Rodent Control Worker ID [id number] [facility] Comment:Test Performed by [facility] [facility] 03/28/2011 17:1 4 EST 03/28/2011 17:18 EST Sajan Stanford MD CHEMISTRY & BLOOD GA S ORDERABLES Performing Organization Address [facility] Co de Phone Number [facility] [address] [place] [address] * (ABNORMAL) GLUCOSE, GLUCOMETER (03/28/2011 12:16 EST) Glucose, Fingerstick 264(H) 70 - 100 mg/dl [facility] Rodent Control Worker ID [id number] [facility] Comment:Test Performed by [facility] [facility] 03/28/2011 12:1 6 EST 03/28/2011 12:18 EST Sajan Stanford MD CHEMISTRY & BLOOD GA S ORDERABLES Performing Organization Address City/[facility]/ZIP Co de Phone Number [facility] [address] [place] [address] * (ABNORMAL) GLUCOSE, GLUCOMETER (03/28/2011 8:15 EST) Glucose, Fingerstick 119(H) 70 - 100 mg/dl [facility] Rodent Control Worker ID [id number] [facility] Comment:Test Performed by [facility] [facility] 03/28/2011 8:15 EST 03/28/2011 8:53 EST Sajan Stanford MD CHEMISTRY & BLOOD GA S ORDERABLES Performing Organization Address [facility] Co de Phone Number [facility] [address] [place] [address] * (ABNORMAL) GLUCOSE, GLUCOMETER (03/27/2011 21:10 EST) Glucose, Fingerstick 175(H) 70 - 100 mg/dl [facility] Rodent Control Worker ID [id number] [facility] Comment:Test Performed by [facility] [facility] 03/27/2011 21:1 0 EST 03/27/2011 21:11 EST Sajan Stanford MD CHEMISTRY & BLOOD GA S ORDERABLES Performing Organization Address [facility] Co wy Phone Number [facility] [address] [place] [address] * (ABNORMAL) GLUCOSE, GLUCOMETER (03/27/2011 17:11 EST) Glucose, Fingerstick 200(H) 70 - 100 mg/dl [facility] Rodent Control Worker ID [id number] [facility] Comment:Test Performed by [facility] [facility] 03/27/2011 17:1 1 EST 03/27/2011 17:13 EST Sajan Stanford MD CHEMISTRY & BLOOD GA S ORDERABLES Performing Organization Address [facility] Co de Phone Number [facility] [address] [place] [address] * (ABNORMAL) GLUCOSE, GLUCOMETER (03/27/2011 14:46 EST) Glucose, Fingerstick 224(H) 70 - 100 mg/dl [facility] Rodent Control Worker ID [id number] [facility] Comment:Test Performed by [facility] [facility] 03/27/2011 14:4 6 EST 03/27/2011 14:50 EST Sajan Stanford MD CHEMISTRY & BLOOD GA S ORDERABLES Performing Organization Address [facility] Phone Number [facility] [address] [place] [address] * (ABNORMAL) GLUCOSE, GLUCOMETER (03/27/2011 11:52 EST) Glucose, Fingerstick 227(H) 70 - 100 mg/dl [facility] Rodent Control Worker ID [id number] [facility] Comment:Test Performed by [facility] [facility] 03/27/2011 11:5 2 EST 03/27/2011 11:56 EST Sajan Stanford MD CHEMISTRY & BLOOD GA S ORDERABLES Performing Organization Address [facility] Phone Number [facility] [address] [place] [address] * (ABNORMAL) GLUCOSE, GLUCOMETER (03/27/2011 8:04 EST) Glucose, Fingerstick 162(H) 70 - 100 mg/dl [facility] Rodent Control Worker ID [id number] [facility] Comment:Test Performed by [facility] [facility] 03/27/2011 8:04 EST 03/27/2011 8:06 EST Sajan Stanford MD CHEMISTRY & BLOOD GA S ORDERABLES Performing Organization Address [facility] Phone Number [facility] [address] [place] [address] * (ABNORMAL) GLUCOSE, GLUCOMETER (03/27/2011 1:41 EST) Glucose, Fingerstick 194(H) 70 - 100 mg/dl [facility] Rodent Control Worker ID [id number] [facility] Comment:Test Performed by [facility] [facility] 03/27/2011 1:41 EST 03/27/2011 1:44 EST Sajan Stanford MD CHEMISTRY & BLOOD GA S ORDERABLES Performing Organization Address [facility] Phone Number [facility] [address] [place] [address] * (ABNORMAL) GLUCOSE, GLUCOMETER (03/26/2011 21:01 EST) Glucose, Fingerstick 259(H) 70 - 100 mg/dl [facility] Rodent Control Worker ID [id number] [facility] Comment:Test Performed by [facility] [facility] 03/26/2011 21:0 1 EST 03/26/2011 21:03 EST Sajan Stanford MD CHEMISTRY & BLOOD GA S ORDERABLES Performing Organization Address [facility] Phone Number [facility] [address] [place] [address] * (ABNORMAL) GLUCOSE, GLUCOMETER (03/26/2011 17:17 EST) Glucose, Fingerstick 160(H) 70 - 100 mg/dl [facility] Rodent Control Worker ID [id number] [facility] Comment:Test Performed by [facility] [facility] 03/26/2011 17:1 7 EST 03/26/2011 17:18 EST Sajan Stanford MD CHEMISTRY & BLOOD GA S ORDERABLES Performing Organization Address [facility] Phone Number [facility] [address] [place] [address] * (ABNORMAL) GLUCOSE, GLUCOMETER (03/26/2011 12:17 EST) Glucose, Fingerstick 186(H) 70 - 100 mg/dl [facility] Rodent Control Worker ID [id number] [facility] Comment:Test Performed by [facility] [facility] 03/26/2011 12:1 7 EST 03/26/2011 12:19 EST Sajan Stanford MD CHEMISTRY & BLOOD GA S ORDERABLES Performing Organization Address [facility]/ZIP Co de Phone Number [facility] [address] [place] [address] * (ABNORMAL) GLUCOSE, GLUCOMETER (03/26/2011 8:10 EST) Glucose, Fingerstick 121(H) 70 - 100 mg/dl [facility] Rodent Control Worker ID [id number] [facility] Comment:Test Performed by [facility] [facility] 03/26/2011 8:10 EST 03/26/2011 8:12 EST Sajan Stanford MD CHEMISTRY & BLOOD GA S ORDERABLES Performing Organization Address [facility] Co de Phone Number [facility] [address] [place] [address] * ECG REPORT - SCANNED (03/26/2011 7:11 EST) 03/26/2011 7:11 EST Narrative Transcriptions Community Development Officer, Scan - 03/26/2011 7:11 EST Scan Community Development Officer PROCEDURE/MINOR SURG ICAL ORDERABLES * (ABNORMAL) GLUCOSE, GLUCOMETER (03/25/2011 20:52 EST) Glucose, Fingerstick 299(H) 70 - 100 mg/dl [facility] Rodent Control Worker ID [id number] [facility] Comment:Test Performed by [facility] [facility] 03/25/2011 20:5 2 EST 03/25/2011 20:54 EST Sajan Stanford MD CHEMISTRY & BLOOD GA S ORDERABLES Performing Organization Address [facility] Co de Phone Number [facility] [address] [place] [address] * (ABNORMAL) GLUCOSE, GLUCOMETER (03/25/2011 16:53 EST) Glucose, Fingerstick 171(H) 70 - 100 mg/dl [facility] Rodent Control Worker ID [id number] [facility] Comment:Test Performed by [facility] [facility] 03/25/2011 16:5 3 EST 03/25/2011 16:57 EST Sajan Stanford MD CHEMISTRY & BLOOD GA S ORDERABLES Performing Organization Address [facility] Co de Phone Number [facility] [address] [place] [address] * (ABNORMAL) GLUCOSE, GLUCOMETER (03/25/2011 11:57 EST) Glucose, Fingerstick 240(H) 70 - 100 mg/dl [facility] Rodent Control Worker ID [id number] [facility] Comment:Test Performed by [facility] [facility] 03/25/2011 11:5 7 EST 03/25/2011 11:59 EST Sajan Stanford MD CHEMISTRY & BLOOD GA S ORDERABLES Performing Organization Address [facility] Phone Number [facility] [address] [place] [address] * (ABNORMAL) GLUCOSE, GLUCOMETER (03/25/2011 9:24 EST) Glucose, Fingerstick 153(H) 70 - 100 mg/dl [facility] Rodent Control Worker ID [id number] [facility] Comment:Test Performed by [facility] [facility] 03/25/2011 9:24 EST 03/25/2011 9:26 EST Sajan Stanford MD CHEMISTRY & BLOOD GA S ORDERABLES Performing Organization Address [facility] Phone Number [facility] [address] [place] [address] * (ABNORMAL) GLUCOSE, GLUCOMETER (03/24/2011 20:58 EST) Glucose, Fingerstick 237(H) 70 - 100 mg/dl [facility] Rodent Control Worker ID [id number] [facility] Comment:Test Performed by [facility] [facility] 03/24/2011 20:5 8 EST 03/24/2011 21:02 EST Sajan Stanford MD CHEMISTRY & BLOOD GA S ORDERABLES Performing Organization Address [facility] Co de Phone Number [facility] [address] [place] [address] * (ABNORMAL) GLUCOSE, GLUCOMETER (03/24/2011 16:52 EST) Glucose, Fingerstick 251(H) 70 - 100 mg/dl [facility] Rodent Control Worker ID [id number] [facility] Comment:Test Performed by [facility] [facility] 03/24/2011 16:5 2 EST 03/24/2011 16:55 EST Sajan Stanford MD CHEMISTRY & BLOOD GA S ORDERABLES Performing Organization Address [facility] de Phone Number [facility] [address] [place] [address] * (ABNORMAL) GLUCOSE, GLUCOMETER (03/24/2011 11:57 EST) Glucose, Fingerstick 236(H) 70 - 100 mg/dl [facility] Rodent Control Worker ID [id number] [facility] Comment:Test Performed by [facility] 03/24/2011 11:5 7 EST 03/24/2011 11:59 EST Sajan Stanford MD CHEMISTRY & BLOOD GA S ORDERABLES Performing Organization Address [facility] de Phone Number [facility] [address] [place] [address] * UA REFLEX (03/24/2011 9:22 EST) UA Billing Microscopic not indicated. [facility] 03/24/2011 9:22 EST 03/24/2011 11:13 EST Jenae Metz MD URINALYSIS ORD ERABLES Performing Organization Address [facility]/ZIP Co de Phone Number [facility] [address] [place] [address] * URINALYSIS (03/24/2011 9:22 EST) Color, UA Yellow [facility] Clarity, UA Clear [facility] Glucose, UA Neg Neg [facility] Bilirubin, UA Neg Neg [facility] Ketones, UA Neg Neg [facility] Specific [place], Urine 1.010 1.001 - 1.035 [facility] Blood, UA Neg Neg [facility] pH, UA 5.5 4.6 - 8.0 [facility] Protein, UA Neg Neg [facility] Urobilinogen, UA 0.2 0.2 - 1.0 E.U./dl [facility] Nitrite, UA Neg Neg [facility] Leuk Esterase Neg Neg [facility] Urine specimen (specimen) 03/24/2011 9:22 EST 03/24/2011 11:13 EST Jenae Metz MD URINALYSIS ORD ERABLES Performing Organization Address [facility] de Phone Number [facility] [address] [place] [address] * (ABNORMAL) GLUCOSE, GLUCOMETER (03/24/2011 9:07 EST) Glucose, Fingerstick 138(H) 70 - 100 mg/dl [facility] Rodent Control Worker ID [id number] [facility] Comment:[facility] 03/24/2011 9:07 EST 03/24/2011 9:09 EST Sajan Stanford MD CHEMISTRY & BLOOD GA S ORDERABLES Performing Organization Address City/[facility] Co de Phone Number [facility] [address] [place] [address] * (ABNORMAL) GLUCOSE, GLUCOMETER (03/23/2011 22:46 EST) Glucose, Fingerstick 170(H) 70 - 100 mg/dl [facility] Rodent Control Worker ID [id number] [facility] Comment:Test Performed by [employer] [facility] 03/23/2011 22:4 6 EST 03/23/2011 23:01 EST Sajan Stanford MD CHEMISTRY & BLOOD GA S ORDERABLES Performing Organization Address [facility]/ZIP Co de Phone Number [facility] [address] [place] [address] * (ABNORMAL) GLUCOSE, GLUCOMETER (03/23/2011 16:57 EST) Glucose, Fingerstick 260(H) 70 - 100 mg/dl [facility] Rodent Control Worker ID [id number] [facility] Comment:Test Performed by [facility] 03/23/2011 16:5 7 EST 03/23/2011 16:58 EST Sajan Stanford MD CHEMISTRY & BLOOD GA S ORDERABLES Performing Organization Address [facility] Co de Phone Number [facility] [address] [place] [address] * (ABNORMAL) GLUCOSE, GLUCOMETER (03/23/2011 12:01 EST) Glucose, Fingerstick 228(H) 70 - 100 mg/dl [facility] Rodent Control Worker ID [id number] [facility] Comment:Test Performed by [facility] [facility] 03/23/2011 12:0 1 EST 03/23/2011 12:06 EST Sajan Stanford MD CHEMISTRY & BLOOD GA S ORDERABLES Performing Organization Address [facility] Co de Phone Number [facility] [address] [place] [address] * (ABNORMAL) GLUCOSE, GLUCOMETER (03/23/2011 8:43 EST) Glucose, Fingerstick 170(H) 70 - 100 mg/dl [facility] Rodent Control Worker ID [id number] [facility] Comment:Test Performed by [facility] 03/23/2011 8:43 EST 03/23/2011 8:58 EST Sajan Stanford MD CHEMISTRY & BLOOD GA S ORDERABLES Performing Organization Address City/[facility]/ZIP Co de Phone Number [facility] [address] [place] [address] * (ABNORMAL) GLUCOSE, GLUCOMETER (03/22/2011 21:08 EST) Glucose, Fingerstick 294(H) 70 - 100 mg/dl [facility] Rodent Control Worker ID [id number] [facility] Comment:Test Performed by [facility] 03/22/2011 21:0 8 EST 03/22/2011 21:10 EST Sajan Stanford MD CHEMISTRY & BLOOD GA S ORDERABLES Performing Organization Address [facility] Co de Phone Number [facility] [address] [place] [address] * FOLATE (03/22/2011 19:08 EST) Pathologist [facility] Folate 21.6 ng/mL [facility] Comment: Deficient: ??Less than 3.4 ng/mL Indeterminate: ??3.4-5.4 ng/mL Normal: ??Greater than 5.4 ng/mL Blood specimen (specimen) 03/22/2011 19:08 EST 03/22/2011 19:26 EST Jenae Metz MD CHEMISTRY & BL OOD GAS ORDERABLES Performing Organization Address [facility] de Phone Number [facility] [address] [place] [address] * VITAMIN B12 (03/22/2011 19:08 EST) Pathologist [facility] Vitamin B-12 381 211 - 911 pg/ml [facility] Blood specimen (specimen) 03/22/2011 19:08 EST 03/22/2011 19:26 EST Jenae Metz MD CHEMISTRY & BL OOD GAS ORDERABLES Performing Organization Address [facility] Co de Phone Number [facility] [address] [place] [address] * T4 FREE (03/22/2011 19:08 EST) Free T4 1.5 0.8 - 1.8 ng/dL [facility] Blood specimen (specimen) 03/22/2011 19:08 EST 03/22/2011 19:26 EST Jenae Metz MD CHEMISTRY & BL OOD GAS ORDERABLES [facility] [address] [place] [address] * HEMAGRAM AND DIFFERENTIAL (03/22/2011 19:08 EST) WBC 6.60 4.0 - 10.4 K/cmm [facility] RBC 4.45 4.36 - 5.78 M/cmm [facility] Hemoglobin 13.8 13.8 - 17.3 gm/dl [facility] HCT 39.6 39.5 - 50.2 % [facility] MCV 89 81 - 95 fl [facility] MCH 31.0 27.6 - 33.0 pg [facility] MCHC 34.8 32.8 - 36.4 gm/dl [facility] PLT 226 141 - 320 K/cmm [facility] RDW-CV 13.0 11.8 - 14.1 % [facility] % Neutrophils 59.8 45.5 - 79.7 % [facility] % Lymphocytes 28.4 15.0 - 46.8 % [facility] % Monocytes 6.9 1.8 - 12.0 % [facility] % Eosinophils 4.3 0.6 - 6.9 % [facility] % Basophils 0.6 0.2 - 1.4 % [facility] ABS Neutrophils 3.95 2.20 - 8.85 K/cmm [facility] ABS Lymphs 1.88 1.09 - 3.30 K/cmm [facility] ABS Monocytes 0.45 0.1 - 0.8 K/cmm [facility] ABS Eosinophils 0.29 0.03 - 0.61 K/cmm [facility] ABS Basophils 0.04 0.01 - 0.11 K/cmm [facility] Type of Diff: Automated [facility] Blood specimen (specimen) 03/22/2011 19:08 EST 03/22/2011 19:26 EST Jenae Metz MD PACKAGES & DNA PROBE ORDERABLES Performing Organization Address [facility] Phone Number [facility] [address] [place] [address] * TSH (03/22/2011 19:08 EST) TSH 0.71 0.35 - 5.00 uIU/ml [facility] Blood specimen (specimen) 03/22/2011 19:08 EST 03/22/2011 19:26 EST Jenae Metz MD CHEMISTRY & BL OOD GAS ORDERABLES Performing Organization Address [facility] [place] [address] * ALT (03/22/2011 19:08 EST) ALT 61 21 - 72 U/L [facility] Blood specimen (specimen) 03/22/2011 19:08 EST 03/22/2011 19:26 EST Jenae Metz MD CHEMISTRY & BL OOD GAS ORDERABLES Performing Organization Address [facility] [place] [address] * (ABNORMAL) AST (03/22/2011 19:08 EST) AST 53(H) 15 - 46 U/L [facility] Blood specimen (specimen) 03/22/2011 19:08 EST 03/22/2011 19:26 EST Jenae Mezt MD CHEMISTRY & BL OOD GAS ORDERABLES Performing Organization Address [facility] [place] [address] * ALBUMIN (03/22/2011 19:08 EST) Albumin 4.3 3.4 - 4.9 g/dl [facility] Blood specimen (specimen) 03/22/2011 19:08 EST 03/22/2011 19:26 EST Jenae Metz MD CHEMISTRY & BL OOD GAS ORDERABLES Performing Organization Address [facility] Co wy Phone Number [facility] [address] [place] [address] * (ABNORMAL) GGT (03/22/2011 19:08 EST) GGT 82(H) 15 - 73 U/L [facility] Blood specimen (specimen) 03/22/2011 19:08 EST 03/22/2011 19:26 EST Jenae Metz MD CHEMISTRY & BL OOD GAS ORDERABLES Performing Organization Address [facility] Phone Number [facility] [address] [place] [address] * ALKALINE PHOSPHATASE (03/22/2011 19:08 EST) Total Alkaline Phosphatase 71 38 - 126 U/L [facility] Blood specimen (specimen) 03/22/2011 19:08 EST 03/22/2011 19:26 EST Jenae Metz MD CHEMISTRY & BL OOD GAS ORDERABLES Performing Organization Address [facility] Phone Number [facility] [address] [place] [address] * CREATININE (03/22/2011 19:08 EST) Creatinine 0.80 0.7 - 1.5 mg/dl [facility] GFR, Calculated >60 >60 ml/min/1.7 3m2 [facility] Blood specimen (specimen) 03/22/2011 19:08 EST 03/22/2011 19:26 EST Jenae Metz MD CHEMISTRY & BL OOD GAS ORDERABLES Performing Organization Address [facility] Co de Phone Number [facility] [address] [place] [address] * BUN (03/22/2011 19:08 EST) BUN 14 10 - 26 mg/dl [facility] Blood specimen (specimen) 03/22/2011 19:08 EST 03/22/2011 19:26 EST Jenae Metz MD CHEMISTRY & BL OOD GAS ORDERABLES Performing Organization Address City/[facility] Co de Phone Number [facility] [address] [place] [address] * (ABNORMAL) ELECTROLYTES (03/22/2011 19:08 EST) Sodium 137 136 - 145 mEq/L [facility] Potassium 4.6 3.5 - 5.0 mEq/L [facility] Chloride 100 96 - 110 mEq/L [facility] CO2 23(L) 24 - 32 mEq/L [facility] Blood specimen (specimen) 03/22/2011 19:08 EST 03/22/2011 19:26 EST Jenae Metz MD CHEMISTRY & BL OOD GAS ORDERABLES Performing Organization Address [facility] de Phone Number [facility] [address] [place] [address] * (ABNORMAL) SCREENING GLUCOSE (03/22/2011 19:08 EST) Glucose, Screening 273(H) 70 - 100 mg/dl [facility] Blood specimen (specimen) 03/22/2011 19:08 EST 03/22/2011 19:26 EST Jenae Metz MD CHEMISTRY & BL OOD GAS ORDERABLES Performing Organization Address City/[facility] Co de Phone Number [facility] [address] [place] [address] * (ABNORMAL) GLUCOSE, GLUCOMETER (03/22/2011 18:07 EST) Glucose, Fingerstick 215(H) 70 - 100 mg/dl [facility] Rodent Control Worker ID [id number] [facility] Comment:Test Performed by [facility] 03/22/2011 18:0 7 EST 03/22/2011 18:12 EST Sajan Stanford MD CHEMISTRY & BLOOD GA S ORDERABLES [facility] [address] [place] [address] documented in this encounter Visit Diagnoses Diagnosis Diabetes mellitus ([facility]) Type II or unspecified type diabetes mellitus without mention of complication, not stated as uncontrolled Major depression Major depressive disorder, single episode, unspecified CAD (coronary artery disease) Coronary atherosclerosis of unspecified type of vessel, [employer] [place] [place] or graft documented in this encounter Administered Medications Inactive Administered Medications - up to 3 most recent administrations Medication Order MAR Action Action Date Dose Rate Site acetaminophen (TYLENOL) tablet 325 mg 325 mg, oral, PRN, 2 doses, Starting on Thu04/09/11 at 0948, Until Thu04/09/11 at 1034, Pain, Routine, Recovery (only) Given 04/09/2011 10:12 EST 325 mg acetaminophen (TYLENOL) tablet 650 mg 650 mg, oral, NOW X1, 1 dose, On Thu04/02/11 at 1715, Routine Given 04/02/2011 17:13 EST 650 mg aluminum & magnesium hydroxide-simethicone (MYLANTA-DS) 400-400-40 mg/5 mL suspension 15 mL 15 mL, oral, EVERY 6 HOURS PRN, Starting on Thu04/15/11 at 2232, Until Thu05/05/11 at 1510, Indigestion, Routine Given 05/01/2011 22:21 EST 15 mL Given 04/28/2011 23:56 EST 15 mL Given 04/22/2011 17:08 EST 15 mL ascorbic acid (VITAMIN C) tablet 500 mg 500 mg, oral, DAILY, First dose on Thu04/15/11 at 0930, Until Discontinued, Routine Given 05/05/2011 8:39 EST 500 mg Given 05/04/2011 8:09 EST 500 mg Given 05/03/2011 9:07 EST 500 mg aspirin chewable tablet 81 mg 81 mg, oral, DAILY, First dose on Thu03/23/11 at 0900, Until Discontinued, Routine Given 05/05/2011 8:39 EST 81 mg Given 05/04/2011 8:09 EST 81 mg Given 05/03/2011 9:08 EST 81 mg clopidogrel (PLAVIX) tablet 75 mg 75 mg, oral, DAILY, First dose on 03/23/11 at 0900, Until Discontinued, Routine Given 05/05/2011 8:39 EST 75 mg Given 05/04/2011 8:09 EST 75 mg Given 05/03/2011 9:08 EST 75 mg exenatide (BYETTA) injection 10 mcg 10 mcg, subcutaneous, 2 TIMES DAILY WITH BREAKFAST & DINNER, First dose on Thu04/15/11 at 1700, Until Discontinued, Routine Given 05/05/2011 8:39 EST 10 mcg Given 05/04/2011 17:27 EST 10 mcg Given 05/04/2011 8:13 EST 600 mcg famotidine (PEPCID) tablet 20 mg 20 mg, oral, 2 TIMES DAILY, First dose on Thu04/11/11 at 2145, Until Discontinued, Routine Given 05/05/2011 8:40 EST 2 0 mg Given 05/04/2011 21:44 EST 20 mg Given 05/04/2011 8:10 EST 20 mg Fenofibrate Nanocrystallized (TRICOR) tablet 145 mg 145 mg, oral, DAILY, First dose on 03/23/11 at 0900, Until Discontinued, Routine Given 05/05/2011 8:40 EST 145 mg Given 05/04/2011 8:09 EST 145 mg Given 05/03/2011 9:08 EST 145 mg glipiZIDE (GLUCOTROL) CR tablet 5 mg 5 mg, oral, DAILY, First dose on 03/22/11 at 1900, Until Discontinued, Routine Given 05/05/2011 8:40 EST 5 mg Given 05/04/2011 8:09 EST 5 mg Given 05/03/2011 9:08 EST 5 mg hydrochlorothiazide (HYDRODIURIL) tablet 12.5 mg 12.5 mg, oral, DAILY, First dose on 03/23/11 at 0900, Until Discontinued, Routine Given 04/01/2011 8:59 EST 12.5 mg Given 03/31/2011 10:33 EST 12.5 mg Given 03/30/2011 10:38 EST 12.5 mg hydrOXYzine (ATARAX) tablet 25 mg 25 mg, oral, Once (Without Time Specified), 1 dose, Starting on 05/03/11 at 1800, Until 05/03/11 at 1847, Routine Given 05/03/2011 18:47 EST 25 mg hydrOXYzine (ATARAX) tablet 25 mg 25 mg, oral, NOW X1, 1 dose, On 05/03/11 at 2230, Routine Given 05/03/2011 23:59 EST 25 mg hydrOXYzine (ATARAX) tablet 50 mg 50 mg, oral, ONCE PRN, 1 dose, Starting on 05/04/11 at 1853, Until 05/04/11 at 2011, Anxiety, Routine Given 05/04/2011 20:11 EST 50 mg ibuprofen (MOTRIN) 200 mg tablet 1 dose, Starting on 04/04/11 at 0954, Until Thu04/04/11 at 0957 ibuprofen (MOTRIN) tablet 600 mg 600 mg, oral, 3 TIMES DAILY PRN, Starting on Deloris 04/03/11 at 0731, Until 05/05/11 at 1510, Pain, headache, Routine Given 05/03/2011 20:38 EST 600 mg Given 04/30/2011 20:43 EST 600 mg Given 04/26/2011 9:38 EST 600 mg insulin aspart (NOVOLOG FlexPen) injection subcutaneous, 3 TIMES DAILY WITH MEALS, First dose on 03/23/11 at 0800, Until Discontinued, Routine Given 04/15/2011 12:14 EST 2 Units Abdominal Tissue Given 04/15/2011 8:27 EST 5 Units Given 04/14/2011 23:01 EST 11 Units lactated ringers (LR) infusion at 75 mL/hr, intravenous, CONTINUOUS, Starting on Thu04/04/11 at 1000, Until Thu04/04/11 at 1027, Routine, Recovery (only) Rate Documented 04/04/2011 9:43 EST 75 mL/hr lactated ringers (LR) infusion at 75 mL/hr, intravenous, CONTINUOUS, Starting on Thu04/16/11 at 1015, Until Thu04/16/11 at 1037, Routine, Recovery (only) Rate Documented 04/16/2011 10:34 EST 75 mL/hr lactated ringers (LR) infusion at 75 mL/hr, intravenous, CONTINUOUS, Starting on 04/28/11 at 0945, Until 04/28/11 at 1014, Routine, Recovery (only) Given by Other 04/28/2011 10:55 EST 75 mL/hr lactated ringers (LR) infusion at 75 mL/hr, intravenous, CONTINUOUS, Starting on Thu04/28/11 at 1000, Until Thu04/28/11 at 1014, Routine, Recovery (only) Given by Other 04/28/2011 10:55 EST 75 mL/hr lisinopril (PRINIVIL, ZESTRIL) tablet 10 mg 10 mg, oral, DAILY, First dose on 03/23/11 at 0900, Until Discontinued, Routine Given 05/05/2011 8:40 EST 10 mg Given 05/04/2011 8:10 EST 10 mg Given 05/03/2011 9:15 EST 10 mg lorazepam (ATIVAN) tablet 0.5 mg 0.5 mg, oral, 2 TIMES DAILY PRN, Starting on Thu04/18/11 at 1655, Until Deloris 04/24/11 at 1719, Anxiety, Other, agitation, Routine Given 04/23/2011 18:01 EST 0.5 mg Given 04/23/2011 11:13 EST 0.5 mg Given 04/22/2011 18:52 EST 0.5 mg lorazepam (ATIVAN) tablet 0.5 mg 0.5 mg, oral, DAILY PRN, Starting on Deloris 04/24/11 at 1730, Until Thu04/28/11 at 2359, Anxiety, Other, agitation, Routine Given 04/28/2011 18:42 EST 0.5 mg Given 04/27/2011 17:17 EST 0.5 mg Given 04/26/2011 19:38 EST 0.5 mg lorazepam (ATIVAN) tablet 0.5 mg 0.5 mg, oral, NOW X1, 1 dose, On Thu04/29/11 at 1800, Routine Given 04/29/2011 17:46 EST 0.5 mg lorazepam (ATIVAN) tablet 1 mg 1 mg, oral, AT BEDTIME, First dose on 03/22/11 at 2100, Until Discontinued, Routine Given 03/30/2011 21:54 EST 1 mg Given 03/29/2011 22:00 EST 1 mg Given 03/28/2011 21:41 EST 1 mg lorazepam (ATIVAN) tablet 1 mg 1 mg, oral, 2 TIMES DAILY PRN, Starting on 03/23/11 at 1240, Until Thu04/18/11 at 1655, Anxiety, Other, agitation, Routine Given 04/17/2011 17:36 EST 1 mg Given 04/17/2011 3:59 EST 1 mg Given 04/16/2011 21:11 EST 1 mg lorazepam (ATIVAN) tablet 1 mg 1 mg, oral, AT BEDTIME PRN, Starting on 03/31/11 at 1106, Until 04/16/11 at 1715, Anxiety, Routine Given 04/15/2011 19:16 EST 1 mg Given 04/14/2011 22:02 EST 1 mg Given 04/13/2011 21:33 EST 1 mg metformin (GLUCOPHAGE) tablet 1,000 mg 1,000 mg, oral, 2 TIMES DAILY, First dose on 03/22/11 at 2100, Until Discontinued, Routine Given 05/05/2011 8:40 EST 1,000 mg Given 05/04/2011 21:44 EST 1,000 mg Given 05/04/2011 8:09 EST 1,000 mg nadolol (CORGARD) tablet 20 mg 20 mg, oral, DAILY, First dose (after last modification) on 03/22/11 at 2100, Until Discontinued, Routine Given 05/05/2011 8:40 EST 20 mg Given 05/04/2011 8:10 EST 20 mg Given 05/03/2011 9:11 EST 20 mg nicotine (NICOTROL) 10 mg inhaler 1 Inhaler 1 Inhaler, inhalation, EVERY 2 HOURS PRN, Starting on 03/22/11 at 1945, Until Thu05/05/11 at 1510, Smoking Cessation, Routine Given 05/04/2011 21:50 EST 1 Inhaler Given 05/03/2011 20:43 EST 1 Inhaler Given 05/02/2011 11:13 EST 1 Inhaler nicotine inhaler (delivery device) 1 Each, inhalation, PRN, Starting on 03/22/11 at 1945, Until Thu05/05/11 at 1510, Smoking Cessation Given 04/20/2011 19:08 EST 1 Each Given 04/12/2011 0:02 EST 1 Each Given 04/07/2011 21:33 EST 1 Each nortriptyline (PAMELOR) capsule 100 mg 100 mg, oral, AT BEDTIME, First dose (after last modification) on 03/24/11 at 2100, Until Discontinued, Routine Given 05/04/2011 21:44 EST 100 mg Given 05/03/2011 21:51 EST 100 mg Given 05/02/2011 21:47 EST 100 mg nortriptyline (PAMELOR) capsule 25 mg 25 mg, oral, AT BEDTIME, First dose (after last modification) on 03/22/11 at 2100, Until Discontinued, Routine Given 03/23/2011 20:45 EST 25 mg Given 03/22/2011 21:20 EST 25 mg oxycodone-acetaminophen (PERCOCET) 5-325 mg per tablet 1 Tab 1 Tablet, oral, 2 TIMES DAILY PRN, Starting on 04/06/11 at 1115, Until Thu04/18/11 at 1655, Pain, Routine Given 04/17/2011 21:04 EST 1 Tablet Given 04/17/2011 17:37 EST 1 Tablet Given 04/16/2011 21:11 EST 1 Tablet oxycodone-acetaminophen (PERCOCET) 5-325 mg per tablet 1 Tab 1 Tablet, oral, DAILY PRN, Starting on Thu04/18/11 at 1700, Until Thu04/29/11 at 2359, Pain, Routine Given 04/29/2011 21:01 EST 1 Tablet Given 04/28/2011 21:06 EST 1 Tablet Given 04/27/2011 20:43 EST 1 Tablet oxycodone-acetaminophen (PERCOCET) 5-325 mg per tablet 1-2 Tab 1-2 Tablet, oral, DAILY PRN, Starting on 04/05/11 at 1035, Until 04/06/11 at 1108, Pain, Routine Given 04/05/2011 17:50 EST 1 Tablet perphenazine (TRILAFON) tablet 4 mg 4 mg, oral, AT BEDTIME, First dose (after last modification) on 03/22/11 at 2100, Until Discontinued, Routine Given 03/26/2011 21:28 EST 4 mg Given 03/25/2011 21:47 EST 2 mg Given 03/24/2011 21:53 EST 4 mg perphenazine (TRILAFON) tablet 8 mg 8 mg, oral, AT BEDTIME, First dose (after last modification) on Deloris 03/27/11 at 2100, Until Discontinued, Routine Given 04/07/2011 20:16 EST 8 mg Given 04/06/2011 21:22 EST 8 mg Given 04/05/2011 21:39 EST 8 mg sodium chloride 0.9 % flush 3 mL 3 mL, intravenous, EVERY 8 HOURS, First dose on Thu03/26/11 at 1630, Until Discontinued, Routine Given 04/02/2011 2:51 EST 3 mL Left Arm Given by Other 03/27/2011 8:00 EST 3 mL Given 03/27/2011 2:09 EST 3 mL trazodone (DESYREL) tablet 25 mg 25 mg, oral, NOW X1, 1 dose, On 03/23/11 at 0015, Routine Given 03/23/2011 0:02 EST 25 mg zolpidem (AMBIEN) tablet 10 mg 10 mg, oral, AT BEDTIME PRN, Starting on Deloris 03/27/11 at 1735, Until Thu03/31/11 at 1031, Sleep, Routine Given 03/31/2011 0:37 EST 10 mg Given 03/30/2011 21:56 EST 10 mg Given 03/29/2011 22:00 EST 10 mg zolpidem (AMBIEN) tablet 10 mg 10 mg, oral, AT BEDTIME, First dose (after last modification) on Thu03/31/11 at 2100, Until Discontinued, Routine Given 05/04/2011 23:56 EST 10 mg Given 05/04/2011 22:39 EST 10 mg Given 05/03/2011 23:59 EST 10 mg documented in this encounter Discontinued Medications Medication Sig Discontinue Reason Start Date End Da te Fenofibric Acid 135 mg CpDR Take 135 mg by mouth daily. 05/05/2011 perphenazine (TRILAFON) 8 mg tablet Take 12 mg by mouth at bedtime. 05/05/2011 hydrochlorothiazide (HYDRODIURIL) 25 mg tablet Take 12.5 mg by mouth daily. 05/05/2011 documented as of this encounter Historical Medications * This list may reflect changes made after this encounter. Medication Sig Dispensed Refills Start Date End Date clopidogrel (PLAVIX) 75 mg tablet Take 75 mg by mouth daily. nicotine polacrilex (NICORETTE) 4 mg gumIndications:nicotin e withdrawal symptoms Take 4 mg by mouth as needed. Indications: NICOTINE WITHDRAWAL SYMPTOMS nortriptyline (PAMELOR) 50 mg capsuleIndications:dep ression Take 100 mg by mouth at bedtime. Indications: DEPRESSION nadolol (CORGARD) 20 mg tabletIndications:hype rtension Take 20 mg by mouth daily. Indications: HYPERTENSION metformin (GLUCOPHAGE) 1,000 mg tabletIndications:type 2 diabetes mellitus Take 1,000 mg by mouth 2 times daily. Indications: TYPE 2 DIABETES MELLITUS lisinopril (PRINIVIL, ZESTRIL) 10 mg tablet Take 10 mg by mouth daily. glipiZIDE (GLUCOTROL) 2.5 mg CR tablet Take 5 mg by mouth daily. exenatide (BYETTA) 10 mcg/0.04 mL injection Inject 10 mcg into the skin 2 times daily. aspirin chewable 81 mg tablet Take 81 mg by mouth daily. Fenofibric Acid 135 mg CpDR Take 135 mg by mouth daily. 05/05/2011 perphenazine (TRILAFON) 8 mg tablet Take 12 mg by mouth at bedtime. 05/05/2011 hydrochlorothiazide (HYDRODIURIL) 25 mg tablet Take 12.5 mg by mouth daily. 05/05/2011 added in this encounter Active and Recently Administered Medications Times are shown in EST. Scheduled Medication Order 05/03/2011 05/04/2011 05/05/2011 ascorbic acid (VITAMIN C) tablet 500 mg (CANCELED) 500 mg, oral, DAILY, First dose on Thu04/15/11 at 0930, Until Discontinued, Routine 0907 (Given - Provider: Alice Fatima RN) 0809 (Given - Provider: Alice Fatima RN) 0839 (Given - Provider: Tamika Cordero) aspirin chewable tablet 81 mg (CANCELED) 81 mg, oral, DAILY, First dose on Thu03/23/11 at 0900, Until Discontinued, Routine 0908 (Given - Provider: Alice Fatima RN) 08 (Given - Provider: Alice Fatima RN) 0839 (Given - Provider: Tamika Cordero) clopidogrel (PLAVIX) tablet 75 mg 75 mg, oral, DAILY, First dose on Thu03/23/11 at 0900, Until Discontinued, Routine 0908 (Given - Provider: Alice Fatima RN) 0809 (Given - Provider: Alice Fatima RN) 0839 (Given - Provider: Tamika Cordero) exenatide (BYETTA) injection 10 mcg 10 mcg, subcutaneous, 2 TIMES DAILY WITH BREAKFAST & DINNER, First dose on Thu04/15/11 at 1700, Until Discontinued, Routine 0906 (Given - Provider: Alice Fatima RN)1738 (Given - Provider: Christina Torres) 0813 (Given - Provider: Alice Fatima RN)1727 (Given - Provider: Christina Torres) 0839 (Given - Provider: Tamika Cordero) famotidine (PEPCID) tablet 20 mg (CANCELED) 20 mg, oral, 2 TIMES DAILY, First dose on Thu04/11/11 at 2145, Until Discontinued, Routine 0907 (Given - Provider: Alice Fatima RN)215 (Given - Provider: Christina Torres) 0810 (Given - Provider: Alice Fatima RN)214 (Given - Provider: Christina Torres) 0840 (Given - Provider: Tamika Cordero) Fenofibrate Nanocrystallized (TRICOR) tablet 145 mg 145 mg, oral, DAILY, First dose on 03/23/11 at 0900, Until Discontinued, Routine 0908 (Given - Provider: Alice Fatima RN) 0809 (Given - Provider: Alice Fatima RN) 0840 (Given - Provider: Tamika Cordero) glipiZIDE (GLUCOTROL) CR tablet 5 mg 5 mg, oral, DAILY, First dose on 03/22/11 at 1900, Until Discontinued, Routine 0908 (Given - Provider: Alice Fatima RN) 0809 (Given - Provider: Alice Fatima RN) 0840 (Given - Provider: Tamika Cordero) hydrOXYzine (ATARAX) tablet 25 mg (COMPLETED) 25 mg, oral, Once (Without Time Specified), 1 dose, Starting on 05/03/11 at 1800, Until 05/03/11 at 1847, Routine 1847 (Given - Provider: Mega Deleon RN) hydrOXYzine (ATARAX) tablet 25 mg (COMPLETED) 25 mg, oral, NOW X1, 1 dose, On 05/03/11 at 2230, Routine 2359 (Given - Provider: David Bustillo) lisinopril (PRINIVIL, ZESTRIL) tablet 10 mg 10 mg, oral, DAILY, First dose on 03/23/11 at 0900, Until Discontinued, Routine 0915 (Given - Provider: Alice Fatima RN) 0810 (Given - Provider: Alice Fatima RN) 0840 (Given - Provider: Tamika Cordero) metformin (GLUCOPHAGE) tablet 1,000 mg 1,000 mg, oral, 2 TIMES DAILY, First dose on 03/22/11 at 2100, Until Discontinued, Routine 0908 (Given - Provider: Alice Fatima RN)215 (Given - Provider: Christina Torres) 0809 (Given - Provider: Alice Fatima RN)2144 (Given - Provider: Christina Torres) 0840 (Given - Provider: Tamika Cordero) nadolol (CORGARD) tablet 20 mg 20 mg, oral, DAILY, First dose (after last modification) on 03/22/11 at 2100, Until Discontinued, Routine 0911 (Given - Provider: Alice Fatima RN) 0810 (Given - Provider: Alice Fatima RN) 0840 (Given - Provider: Tamika Cordero) nortriptyline (PAMELOR) capsule 100 mg 100 mg, oral, AT BEDTIME, First dose (after last modification) on Thu03/24/11 at 2100, Until Discontinued, Routine 215 (Given - Provider: Christina Torres) 214 (Given - Provider: Christina Torres) zolpidem (AMBIEN) tablet 10 mg 10 mg, oral, AT BEDTIME, First dose (after last modification) on Thu03/31/11 at 2100, Until Discontinued, Routine 2217 (Given - Provider: Christina Torres - Comment: pt prefers later)2359 (Given - Provider: David Bustillo) 223 (Given - Provider: Christina Torres - Comment: pt prefers later administration)2356 (Given - Provider: Matt Coats RN) PRN Medication Order 05/03/2011 05/04/2011 05/05/2011 hydrOXYzine (ATARAX) tablet 50 mg (COMPLETED) 50 mg, oral, ONCE PRN, 1 dose, Starting on 05/04/11 at 1853, Until 05/04/11 at 2011, Anxiety, Routine 2010 (Given - Provider: Christina Torres) ibuprofen (MOTRIN) tablet 600 mg (CANCELED) 600 mg, oral, 3 TIMES DAILY PRN, Starting on Deloris 12/15/11 at 0731, Until 05/05/11 at 1510, Pain, headache, Routine 2037 (Given - Provider: Christina Torres) nicotine (NICOTROL) 10 mg inhaler 1 Inhaler (CANCELED) 1 Inhaler, inhalation, EVERY 2 HOURS PRN, Starting on 03/22/11 at 1945, Until 05/05/11 at 1510, Smoking Cessation, Routine 2042 (Given - Provider: Christina Torres) 0 (Given - Provider: Christina Torres) documented in this encounter Orders Medications Ordered That Chavo ht Not Have Been Administered Count Last Ordered Date First Ordered Date atropine 0.1 mg/mL 10 mL syringe 0.5 mg 13 0 05/02/2011 03/27/2011 lactated ringers (LR) infusion 6 05/02/2011 04/02/2011 naloxone (NARCAN) injection 0.2 mg 13 201103/27/2011 diphenhydrAMINE (BENADRYL) i njection 6.25 mg 1 04/25/2011 ondansetron (PF) (ZOFRAN) injection 2-4 mg 1 04/25/2011 calcium carbonate (TUMS) 200 mg calcium (500 mg) per chewable tablet Chew 1 Tab 1 04/15/2011 cimetidine (TAGAMET) tablet 400 mg 1 2010 lorazepam (ATIVAN) 1 mg tablet 1 04/07/2011 sodium chloride 0.9 % flush 3 mL 1 04/06/20 11 ondansetron (PF) (ZOFRAN) injection 2 mg 2 04/04/2011 03/27/2011 acetaminophen (TYLENOL) tablet 325 mg 1 11/2010 midazolam (VERSED) injection 0.5-2 mg 1 11/2010 influenza vaccine (PF) (FLUZONE) 45 mcg (15 mcg x 3)/0.5 mL IM injection-syringe 0.5 mL 1 03/24/2011 dextrose 50 % solution 12.5 g 1 03/22/2011 exenatide (BYETTA) injection 10 mcg 1 03/22 Fenofibric Acid CpDR 135 mg 1 03/22/2011 glucagon (human recombinant) injection 1 mg 1 03/22/2011 insulin aspart (NOVOLOG FlexPen) injection 1 03/22/2011 nadolol (CORGARD) tablet 20 mg 1 03/22/2011 nicotine polacrilex (NICORETTE) gum 4 mg 1 03/22/2011 nortriptyline (PAMELOR) capsule 100 mg 1 perphenazine (TRILAFON) tablet 12 mg 2 06/2010 Lab Orders Without Results Count Last Ordered D ate First Ordered Date POCT GLUCOSE 5 04/29/2011 03/24/2011 EKG Orders Without Results Count Last Ordered D ate First Ordered Date EKG 12-LEAD 2 03/26/2011 03/22/2011 Nursing Count Last Ordered Date First Orde red Date NURSING COMMUNICATION 5 04/01/20112010 Consult Count Last Ordered Date First Orde red Date CONSULT PASTORAL CARE 1 04/02/2011 CONSULT ANESTHESIOLOGY 1 03/26/2011 CONSULT ECT 1 03/24/2011 IV Count Last Ordered Date First Orde red Date IV REQUEST 15 05/01/2011 03/26/2011 Admission Count Last Ordered Date First Orde red Date NOTIFY PPS OF DISCHARGE COMPLETE 1 05/05/19 12 NOTIFY PPS PATIENT TRANSFERRED OUT OF PACU 14 05/02/2011 03/27/2011 PPS NOTIFICATION OF PATIENT ARRIVAL ON UNIT 11 05/02/2011 03/27/2011 PPS NOTIFICATION OF SENDING PATIENT OFF THE UNIT 11 05/02/2011 03/27/2011 NOTIFY PPS PATIENT ARRIVAL IN PACU 13 201103/27/2011 ADMIT TO INPATIENT 1 03/22/2011 TEACHING SERVICE 1 03/22/2011 Transfer Count Last Ordered Date First Orde red Date CHANGE ATTENDING TO: 1 04/02/2011 Discharge Count Last Ordered Date First Orde red Date DISCHARGE PATIENT 1 05/05/2011 documented in this encounter Care Teams Multiple Effect Evaporator Operator Relationship Specialty Start Date End Date None, Provider PCP - General 03/22/11 03/23/11 Iggy Sevilla MD [id number] [place] [address] PCP - General 03/24/11 12/19/18 documented as of this encounter
--- OUTSIDE RECORDS SUMMARY | 2023-11-03 01:20 | XMS_ITS | Encounter Summary ---
Author Organization [facility] Address [facility] [place] [address] Care Team Providers Care Mouse Breeder Name Role Phone Dewayne Carrington MD Primary Care Provider [phone] Encounter Details Date Type Department Care Team ([facility] st Contact Info) Description 03/27/2023 [place] [phone] Maren Hernandez MD [facility] [place] [address] Social History Tobacco Use Types Packs/Day Years [...] encounter Miscellaneous Notes * Telephone Encounter - Maren Hernandez MD - 03/27/2023 6:48 AM EST Images from the original note were not included. Initial Contact Date: 03/27/23 Referring Provider: Dr. Dino Fitzpatrick Patient Location: HPI: 72 w/ [place] Sci AICD for history of VT, Afib on Xarelto, HTN, HLD, since yesterday had been feeling weak and dizzy. On arrival vs were unremarkable, showing sinus rhythm. Cardiac rhythm was unremarkable. Pacemaker shows no events. RV pacing for ventricular pauses noted. On metoprolol and amiodarone. Rates of 58-64. Assessment: Agree with OSH provider that based on information shared there is no acute further cardiac work-up indicated. Pacemaker functioning seems appropriate, and patient's vital signs are stable. He has a history of vertigo and this may be what is underlying his current symptoms. However would recommend that patient be seen in EP device clinic for interrogation and follow-up. Considered discontinuing ordecreasing metoprolol but HR's are appropriate currently and pacer is functioning. Recommendations: Above recommendations were based on my discussion with OSH; I have not personally interviewed or examined this patient. Advised to call the transfer center back with any changes in the patient condition. I have not personally reviewed EKGs. Maren Hernandez MD Spray Gun Operator documented in this encounter Plan of Treatment Upcoming Encounters Date Type Department Care Team (Late st Contact Info) Description 12/18/2023 10:00 AM EDT Hospital Encounter [place] [address] Arrived documented as of this encounter Visit Diagnoses Not on filedocumented in this encounter Care Teams Mouse Breeder Relationship Specialty Start Date End Date Dewayne Carrington MD [address] [place] [address] PCP - General 09/02/16 documented as of this encounter
--- OUTSIDE RECORDS SUMMARY | 2023-11-03 01:20 | XMS_ITS | Encounter Summary ---
[place] [address] Care Team Providers Care Farm Equipment Maintenance Supervisor Name Role Phone Dewayne Carrington MD Primary Care Provider [phone] Encounter Details Date Type Department Care Team (Latest Contact Info) Description 06/26/2022 10:00 AM EST - 06/26/2022 11:59 PM EST Hospital Encounter [place] [address] Discharge Disposition: Home Social History Tobacco Use [...] EDT Hospital Encounter Non-Invasive [place] [address] Arrived documented as of this encounter Procedures Procedure Name Priority Date/Time Associated Diagnosis Comments PRO ICD INTERROGATION REMOTE UP TO 90 DAYS Routine 04/30/2022 3:54 AM EST documented in this encounter Results * Cardiac Device Check - Remote (04/30/2022 3:54 AM EST) Anatomical Region Laterality Modality Other 04/30/2022 3:54 AM EST Irena Daly MD IMPLANTABLE CARDIAC DEVICE documented in this encounter Visit Diagnoses Not on filedocumented in this encounter Care Teams Farm Equipment Maintenance Supervisor Relationship Specialty Start Date End Date Dewayne Carrington MD [address] [place] [address] PCP - General 09/02/16 documented as of this encounter
--- OUTSIDE RECORDS SUMMARY | 2023-11-03 01:20 | XMS_ITS | Encounter Summary ---
[place] [address] Care Team Providers Care Older Worker Specialist Name Role Phone Dewayne Carrington MD Primary Care Provider [phone] Encounter Details Date Type Department Care Team (Latest Contact Info) Description 03/18/2022 Travel Social History Tobacco Use Types Packs/Day Years [...] AM EDT Hospital Encounter Non-Invasive [place] [address] Arrived documented as of this encounter Visit Diagnoses Not on filedocumented in this encounter Care Teams Older Worker Specialist Relationship Specialty Start Date End Date Dewayne Carrington MD [facility] [address] [place] [address] PCP - General 09/02/16 documented as of this encounter
--- OUTSIDE RECORDS SUMMARY | 2023-11-03 01:20 | XMS_ITS | Encounter Summary ---
[place] [address] Care Team Providers Care Knot Tier Name Role Phone Dewayne Carrington MD Primary Care Provider [phone] Encounter Details Date Type Department Care Team (Latest Contact Info) Description 12/23/2022 10:00 AM EDT - 12/23/2022 11:59 PM EDT Hospital Encounter Non-[place] [address] Discharge Disposition: Home Social History Tobacco Use [...] AM EDT Hospital Encounter Non-[place] [address] Arrived documented as of this encounter Procedures Procedure Name Priority Date/Time Associated Diagnosis Comments PRO ICD INTERROGATION REMOTE UP TO 90 DAYS Routine 10/28/2022 3:41 AM EDT documented in this encounter Results * Cardiac Device Check - Remote (10/28/2022 3:41 AM EDT) Anatomical Region Laterality Modality Other 10/28/2022 3:41 AM EDT Fantasma Matos MD IMPLANTABLE CARDIAC DEVICE documented in this encounter Visit Diagnoses Not on filedocumented in this encounter Care Teams Knot Tier Relationship Specialty Start Date End Date Dewyane Carrington MD [address] [place] [address] PCP - General 09/02/16 documented as of this encounter
--- OUTSIDE RECORDS SUMMARY | 2023-11-03 01:20 | XMS_ITS | Encounter Summary ---
Author Organization [facility] Address [address] [place] [address] Care Team Providers Care Recessing Machine Operator Name Role Phone Iggy Sevilla MD Primary Care Provider [phone] Reason for Visit * Reason Onset Date Comments Procedure 04/10/2011 Encounter Details Date Type Department Care Team (Late st Contact Info) Description 04/10/2011 Pre-Procedure Orders Encounter [facility] Psychiatric Consultation Program - [address] [address] Juwan Sawant MD [address] [place] [address] [address] [place] [phone] Social History Tobacco Use Types Packs/Day Years [...] on filedocumented in this encounter Care Teams Recessing Machine Operator Relationship Specialty Start Date End Date Iggy Sevilla MD [address] [place] [address] PCP - General 03/24/11 12/19/18 documented as of this encounter
--- OUTSIDE RECORDS SUMMARY | 2023-11-03 01:20 | XMS_ITS | Encounter Summary ---
Author Organization [facility] Address [address] [place] [address] Care Team Providers Care Cornetist Name Role Phone Iggy Sevilla MD Primary Care Provider [phone] Reason for Visit * Reason Onset Date Comments Procedure 04/29/2011 Encounter Details Date Type Department Care Team (Late st Contact Info) Description 04/29/2011 Pre-Procedure Orders Encounter [facility] Psychiatric Consultation Program - [address] [address] Juwan Sawant MD [address] [place] [address] [address] [place] [phone] Social History Tobacco Use Types Packs/Day Years [...] on filedocumented in this encounter Care Teams Cornetist Relationship Specialty Start Date End Date Iggy Sevilla MD [address] [place] [address] PCP - General 03/24/11 12/19/18 documented as of this encounter
--- OUTSIDE RECORDS SUMMARY | 2023-11-03 01:20 | XMS_ITS | Encounter Summary ---
Author Organization [facility] Address [address] [place] [address] Care Team Providers Care Information Technology Audit Manager Name Role Phone Iggy Sevilla MD Primary Care Provider [phone] Reason for Visit * Reason Onset Date Comments Procedure 04/11/2011 Encounter Details Date Type Department Care Team (Late st Contact Info) Description 04/11/2011 Pre-Procedure Orders Encounter [facility] Psychiatric Consultation Program - [address] [address] Juwan Sawant MD [address] [place] [address] [address] [place] [phone] Social History Tobacco Use Types Packs/Day Years [...] on filedocumented in this encounter Care Teams Information Technology Audit Manager Relationship Specialty Start Date End Date Iggy Sevilla MD [address] [place] [address] PCP - General 03/24/11 12/19/18 documented as of this encounter
--- OUTSIDE RECORDS SUMMARY | 2023-11-03 01:21 | XMS_ITS | Encounter Summary ---
Author Organization [facility] Address [facility] [place] [address] Care Team Providers Care Blow Mold Operator Name Role Phone Dewayne Carrington MD Primary Care Provider [phone] Encounter Details Date Type Department Care Team (Latest Contact Info) Description 06/27/2021 2:16 PM EST - 06/27/2021 11:59 PM EST Hospital Encounter Non-Invasive Cardiology Lab [facility] [place] [address] Shaheen Molina MD [facility] [place] [address] V-tach Discharge Disposition: Home Social History Tobacco Use [...] Sig Dispensed Refills Start Date End Date AMIOdarone (Paceron) 200 mg Tablet Take 400 [...] STRIPS TEST THREE TIMES DAILY 0 08/27/2018 CHOLECALCIFEROL, VITAMIN D3, 2,000 unit Capsule take [...] 5 minutes as needed. Reported on 09/30/2016 vilazodone (Viibryd) 40 mg Tablet Take 40 mg by mouth daily. 03/18/2022 glipiZIDE (GLUCOTROL) 5 mg Tablet Take 5 mg by mouth daily. 03/18/2022 lisinopril (PRINIVIL;ZESTRIL) 20 mg Tablet Take 1 tablet by mouth daily. 30 tablet 12 01/09/2014 03/18/2022 documented as of this encounter Plan of Treatment Upcoming Encounters Date Type Department Care Team (Late st Contact Info) Description 12/18/2023 10:00 AM EDT Hospital Encounter Non-Invasive [place] [address] Arrived documented as of this encounter Procedures Procedure Name Priority Date/Time Associated Diagnosis Comments ICD INTERROGATION 3 MONTH Routine 06/27/2021 2:17 PM EST V-tach documented in this encounter Results * ICD INTERROGATION 3 MONTH (06/27/2021 2:17 PM EST) Anatomical Region Laterality Modality Other Narrative 07/16/2021 11:49 AM EDT BSC DDD ICD remote reviewed. Normal device function. Shaheen Molina MD [facility] Cardiac Electrophysiology 07/16/2021 11:45 AM Shaheen Molina MD IMPLANTABLE CARDIAC DEVICE documented in this encounter Visit Diagnoses Diagnosis V-tach Paroxysmal ventricular tachycardia documented in this encounter Care Teams Blow Mold Operator Relationship Specialty Start Date End Date Dewayne Carrington MD [address] [place] [address] PCP - General 09/02/16 documented as of this encounter
--- OUTSIDE RECORDS SUMMARY | 2023-11-03 01:21 | XMS_ITS | Encounter Summary ---
Author Organization [facility] Address [facility] [place] [address] Care Team Providers Care Pilates Instructor Name Role Phone Dewayne Carrington MD Primary Care Provider [phone] Encounter Details Date Type Department Care Team (Latest Contact Info) Description 12/27/2020 3:04 PM EDT - 12/27/2020 11:59 PM EDT Hospital Encounter Non-[place] [address] Shaheen Molina MD [facility] [place] [address] V-tach Discharge Disposition: Home Social History Tobacco [...] AM EDT Hospital Encounter Non-[place] [address] Arrived documented as of this encounter Procedures Procedure Name Priority Date/Time Associated Diagnosis Comments PCM INTERROGATION 3 MONTH Routine 12/27/2020 3:05 PM EDT V-tach documented in this encounter Results * PCM INTERROGATION 3 MONTH (12/27/2020 3:05 PM EDT) Anatomical Region Laterality Modality Other Narrative 01/07/2021 12:54 PM EDT BSC DDD ICD remote reviewed. Normal device function. Shaheen Molina MD [facility] Cardiac Electrophys[facility] 01/07/2021 12:53 PM Shaheen Molina MD IMPLANTABLE CARDIAC DEVICE documented in this encounter Visit Diagnoses Diagnosis V-tach Paroxysmal ventricular tachycardia documented in this encounter Care Teams Pilates Instructor Relationship Specialty Start Date End Date Dewayne Carrington MD [address] [place] [address] PCP - General 09/02/16 documented as of this encounter
--- OUTSIDE RECORDS SUMMARY | 2023-11-03 01:21 | XMS_ITS | Encounter Summary ---
[place] [address] Care Team Providers Care Cloth Hand Name Role Phone Dewayne Carrington MD Primary Care Provider [phone] Encounter Details Date Type Department Care Team (Late st Contact Info) Description 03/28/2021 Orders Only Cardiology at [address] [address] Social History Tobacco Use Types Packs/Day Years [...] AM EDT Hospital Encounter Non-[place]vasive [place] [address] Arrived documented as of this encounter Procedures Procedure Name Priority Date/Time Associated Diagnosis Comments CARDIAC DEVICE CHECK - REMOTE SCHEDULED Routine 03/28/2021 11:18 AM EST documented in this encounter Results * Cardiac device check - Remote Scheduled (03/28/2021 11:18 AM EST) Date Time Interrogation Session IDCO Type Interrogation Session Remote Scheduled IDCO Clinic Name [facility] IDCO Battery Date Time of Measurements IDCO Battery Status Beginning of Service IDCO Battery Remaining Longevity 48 mo IDCO Battery Remaining Percentage 56 % IDCO Capacitor Last Charge Date Time IDCO Capacitor Charge Time 11.5 s IDCO Capacitor Charge Type Reformation IDCO Capacitor Last Charge Date Time IDCO Capacitor Charge Time 3.8 s IDCO Capacitor Charge Energy 21 J IDCO Capacitor Charge Type Shock IDCO Episode Identifier [id number] IDCO Episode Date Time IDCO Episode Type Category Periodic EGM IDCO Episode Vendor Type Category APMRT IDCO Episode Detection And Therapy Details Presenting EGM IDCO Episode Identifier [id number] IDCO Episode Date Time IDCO Episode Type Category Other IDCO Episode Vendor Type Category XANDER IDCO Episode Detection Interval Ventricular 1,154 ms IDCO Episode Duration 53 s IDCO Episode Detection And Therapy Details IDCO Episode Identifier [id number] IDCO Episode Date Time IDCO Episode Type Category Other IDCO Episode Vendor Type Category XANDER IDCO Episode Detection Interval Ventricular 984 ms IDCO Episode Duration 174 s IDCO Episode Detection And Therapy Details IDCO Episode Identifier [id number] IDCO Episode Date Time IDCO Episode Type Category Other IDCO Episode Vendor Type Category XANDER IDCO Episode Detection Interval Ventricular 1,000 ms IDCO Episode Duration 60 s IDCO Episode Detection And Therapy Details IDCO Episode Identifier [id number] IDCO Episode Date Time IDCO Episode Type Category Other IDCO Episode Vendor Type Category XANDER IDCO Episode Detection Interval Ventricular 984 ms IDCO Episode Duration 58 s IDCO Episode Detection And Therapy Details IDCO Episode Identifier [id number] IDCO Episode Date Time IDCO Episode Type Category Other IDCO Episode Vendor Type Category XANDER IDCO Episode Detection Interval Ventricular 984 ms IDCO Episode Duration 59 s IDCO Episode Detection And Therapy Details IDCO Episode Identifier [id number] IDCO Episode Date Time IDCO Episode Type Category Other IDCO Episode Vendor Type Category XANDER IDCO Episode Detection Interval Ventricular 984 ms IDCO Episode Duration 59 s IDCO Episode Detection And Therapy Details IDCO Episode Identifier [id number] IDCO Episode Date Time IDCO Episode Type Category Other IDCO Episode Vendor Type Category XANDER IDCO Episode Detection Interval Ventricular 1,053 ms IDCO Episode Duration 63 s IDCO Episode Detection And Therapy Details IDCO Episode Identifier [id number] IDCO Episode Date Time IDCO Episode Type Category Other IDCO Episode Vendor Type Category XANDER IDCO Episode Detection Interval Ventricular 1,071 ms IDCO Episode Duration 471 s IDCO Episode Detection And Therapy Details IDCO Episode Statistic Type Category VF IDCO Episode Statistic Vendor Type Category VF IDCO Episode Statistic Recent Count 0 IDCO Episode Statistic Recent Date Time Start 20210320 IDCO Episode Statistic Recent Date Time End 20210328 IDCO Episode Statistic Type Category VT IDCO Episode Statistic Vendor Type Category VT IDCO Episode Statistic Recent Count 0 IDCO Episode Statistic Recent Date Time Start 20210320 IDCO Episode Statistic Recent Date Time End 20210328 IDCO Episode Statistic Type Category VT IDCO Episode Statistic Vendor Type Category VT-1 IDCO Episode Statistic Recent Count 0 IDCO Episode Statistic Recent Date Time Start 20210320 IDCO Episode Statistic Recent Date Time End 20210328 IDCO Episode Statistic Type Category Monitor IDCO Episode Statistic Vendor Type Category IDCO Episode Statistic Recent Count 0 IDCO Episode Statistic Recent Date Time Start 20210320 IDCO Episode Statistic Recent Date Time End 20210328 IDCO Episode Statistic Type Category Other IDCO Episode Statistic Vendor Type Category IDCO Episode Statistic Recent Count 0 IDCO Episode Statistic Recent Date Time Start 20210320 IDCO Episode Statistic Recent Date Time End 20210328 IDCO Episode Statistic Type Category VT IDCO Episode Statistic Vendor Type Category NSVT IDCO Episode Statistic Recent Count 0 IDCO Episode Statistic Recent Date Time Start 20210320 IDCO Episode Statistic Recent Date Time End 20210328 IDCO Episode Statistic Type Category AT/AF IDCO Episode Statistic Vendor Type Category ATR IDCO Episode Statistic Recent Count 0 IDCO Episode Statistic Recent Date Time Start 20210320 IDCO Episode Statistic Recent Date Time End 20210328 IDCO Albaro Setting AT Mode Switch Mode VDIR IDCO Albaro Setting AT Mode Switch Rate 170 {beats}/ min IDCO Albaro Setting Mode (NBG Code) DDDR IDCO Albaro Setting Lower Rate Limit 55 {beats}/ min IDCO Albaro Setting Maximum Tracking Rate 130 {beats}/ min IDCO Albaro Setting Maximum Sensor Rate 130 {beats}/ min IDCO Albaro Setting CORINE Delay High 65 ms IDCO Albaro Setting CORINE Delay Low 150 ms IDCO Albaro Setting PAV Delay High 80 ms IDCO Albaro Setting PAV Delay Low 180 ms IDCO Tachy Therapy Setting Ventricular Status On IDCO Zone Setting Type Category VF IDCO Zone Setting Vendor Type Category VF IDCO Zone Setting Status Active IDCO Zone Setting Detection Interval 273 ms IDCO Zone Setting ATP Type Burst IDCO Zone Setting Number of ATP Sequences 1 IDCO Zone Setting Shock Energy 31 J IDCO Zone Setting Number of Shocks 1 IDCO Zone Setting Shock Energy 41 J IDCO Zone Setting Number of Shocks 1 IDCO Zone Setting Shock Energy 41 J IDCO Zone Setting Number of Shocks 6 IDCO Zone Setting Type Category VT IDCO Zone Setting Vendor Type Category VT IDCO Zone Setting Status Active IDCO Zone Setting Detection Interval 308 ms IDCO Zone Setting ATP Type Burst+Scan IDCO Zone Setting Number of ATP Sequences 5 IDCO Zone Setting Shock Energy 31 J IDCO Zone Setting Number of Shocks 1 IDCO Zone Setting Shock Energy 41 J IDCO Zone Setting Number of Shocks 1 IDCO Zone Setting Shock Energy 41 J IDCO Zone Setting Number of Shocks 4 IDCO Zone Setting Type Category VT IDCO Zone Setting Vendor Type Category VT-1 IDCO Zone Setting Status Active IDCO Zone Setting Detection Interval 429 ms IDCO Zone Setting ATP Type Burst+Scan IDCO Zone Setting Number of ATP Sequences 5 IDCO Zone Setting ATP Type Ramp+Scan IDCO Zone Setting Number of ATP Sequences 5 IDCO Zone Setting Shock Energy 0.9 J IDCO Zone Setting Number of Shocks 1 IDCO Zone Setting Shock Energy 11 J IDCO Zone Setting Number of Shocks 1 IDCO Zone Setting Shock Energy 41 J IDCO Zone Setting Number of Shocks 3 IDCO Lead Channel Setting Sensing Sensitivity 0.25 mV IDCO Lead Channel Setting Sensing Adaptation Mode Adaptive IDCO Lead Channel Setting Sensing Polarity Bipolar IDCO Lead Channel Setting Sensing Sensitivity 0.6 mV IDCO Lead Channel Setting Sensing Adaptation Mode Adaptive IDCO Lead Channel Setting Sensing Polarity Bipolar IDCO Lead Channel Setting Pacing Amplitude 2.2 V IDCO Lead Channel Setting Pacing Pulse Width 0.5 ms IDCO Lead Channel Setting Pacing Polarity Bipolar IDCO Lead Channel Setting Pacing Amplitude 2.0 V IDCO Lead Channel Setting Pacing Pulse Width 0.5 ms IDCO Lead Channel Setting Pacing Polarity Bipolar IDCO Albaro Setting Sensor Type Accelerometer IDCO Implantable Pulse Generator Type Defibrillator IDCO Implantable Pulse Generator Model E162 IDCO Implantable Pulse Generator Serial Number [id number] IDCO Implantable Pulse Generator Trolley Cleaner [employer] IDCO Implantable Pulse Generator Implant Date 20140110 IDCO Implantable Lead Model 4136 IDCO Implantable Lead Serial Number [id number] IDCO Implantable Lead Trolley Cleaner Guiddelio IDCO Implantable Lead Implant Date 20130421 IDCO Implantable Lead Polarity Type Bipolar Lead IDCO Implantable Lead Location Right Atrium IDCO Implantable Lead Model 0292 IDCO Implantable Lead Serial Number [id number] IDCO Implantable Lead Trolley Cleaner [employer] IDCO Implantable Lead Implant Date IDCO Implantable Lead Location Right Ventricle IDCO Lead Channel Measurements Date and Time Start 20210320 IDCO Lead Channel Measurements Date and Time End 20210327 IDCO Lead Channel Sensing Intrinsic Amplitude Mean mV IDCO Lead Channel Sensing Polarity Bipolar IDCO Lead Channel Pacing Threshold Amplitude 0.8 V IDCO Lead Channel Pacing Threshold Pulse Width 0.5 ms IDCO Lead Channel Pacing Threshold Measurement Method Castings Drafter Manual IDCO Lead Channel Pacing Threshold Polarity Bipolar IDCO Lead Channel Impedance Value 719 ohms IDCO Lead Channel Impedance Polarity Bipolar IDCO Lead Channel Measurements Date and Time Start 20210320 IDCO Lead Channel Measurements Date and Time End 20210327 IDCO Lead Channel Sensing Intrinsic Amplitude Mean 10.0 mV IDCO Lead Channel Sensing Polarity Bipolar IDCO Lead Channel Pacing Threshold Amplitude 0.8 V IDCO Lead Channel Pacing Threshold Pulse Width 0.5 ms IDCO Lead Channel Pacing Threshold Measurement Method Castings Drafter Manual IDCO Lead Channel Pacing Threshold Polarity Bipolar IDCO Lead Channel Impedance Value 602 ohms IDCO Lead Channel Impedance Polarity Bipolar IDCO Lead High Voltage Channel Date Time 20210327 IDCO Lead High Voltage Channel Impedance 99 ohms IDCO Lead High Voltage Channel Measurement Type Low Voltage Pulse IDCO Statistic Date Time Start 20210320 IDCO Statistic Date Time End 20210328 IDCO Albaro Statistic Date Time Start 20210320 IDCO Albaro Statistic Date Time End 20210328 IDCO Albaro Statistic RA Percent Paced 10 % IDCO Albaro Statistic RV Percent Paced 0 % IDCO Therapy Statistic Recent Date Time Start 20210320 IDCO Therapy Statistic Recent Date Time End 20210328 IDCO Therapy Statistic Recent Shocks Delivered 0 IDCO Therapy Statistic Total Date Time Start 20140110 IDCO Therapy Statistic Total Date Time End 20210328 IDCO Therapy Statistic Total Shocks Delivered 2 IDCO Therapy Statistic Recent Shocks Aborted 0 IDCO Therapy Statistic Total Shocks Aborted 0 IDCO Therapy Statistic Recent ATP Delivered 0 IDCO Therapy Statistic Total ATP Delivered 12 IDCO Anatomical Region Laterality Modality Other 03/28/2021 11:1 8 AM EST Physician Cardiology IMPLANTABLE CARD IAC DEVICE documented in this encounter Visit Diagnoses Not on filedocumented in this encounter Care Teams Cloth Hand Relationship Specialty Start Date End Date Dewayne Carrington MD [facility] [place] [address] PCP - General 09/02/16 documented as of this encounter
--- OUTSIDE RECORDS SUMMARY | 2023-11-03 01:21 | XMS_ITS | Encounter Summary ---
[place] [address] Care Team Providers Care Neurodiagnostic Tech Name Role Phone Dewayne Carrington MD Primary Care Provider [phone] Encounter Details Date Type Department Care Team (Late st Contact Info) Description 10/22/2021 Orders Only Cardiology at [address] [address] Social History Tobacco Use Types Packs/Day Years [...] AM EDT Hospital Encounter Non[place] [address] Arrived documented as of this encounter Procedures Procedure Name Priority Date/Time Associated Diagnosis Comments CARDIAC DEVICE CHECK - REMOTE DEVICE INITIATED Routine 10/22/2021 12:42 AM EDT documented in this encounter Results * Cardiac device check - Remote Device Initiated (10/22/2021 12:42 AM EDT) Date Time Interrogation Session IDCO Type Interrogation Session Remote Device Initiated IDCO Clinic Name [facility] IDCO Battery Date Time of Measurements IDCO Battery Status Beginning of Service IDCO Battery Remaining Longevity 42 mo IDCO Battery Remaining Percentage 50 % IDCO Capacitor Last Charge Date Time IDCO Capacitor Charge Time 11.7 s IDCO Capacitor Charge Type Reformation IDCO Capacitor Last Charge Date Time IDCO Capacitor Charge Time 3.8 s IDCO Capacitor Charge Energy 21 J IDCO Capacitor Charge Type Shock IDCO Episode Identifier [id number] IDCO Episode Date Time IDCO Episode Type Category Periodic EGM IDCO Episode Vendor Type Category APMRT IDCO Episode Detection And Therapy Details Presenting EGM IDCO Episode Identifier [id number] IDCO Episode Date Time IDCO Episode Type Category Other IDCO Episode Vendor Type Category XANDER IDCO Episode Detection Interval Ventricular 870 ms IDCO Episode Duration 50 s IDCO Episode Detection And Therapy Details IDCO Episode Identifier [id number] IDCO Episode Date Time IDCO Episode Type Category Other IDCO Episode Vendor Type Category XANDER IDCO Episode Detection Interval Ventricular 1,364 ms IDCO Episode Duration 60 s IDCO Episode Detection And Therapy Details IDCO Episode Identifier [id number] IDCO Episode Date Time IDCO Episode Type Category Other IDCO Episode Vendor Type Category XANDER IDCO Episode Detection Interval Ventricular 1,304 ms IDCO Episode Duration 60 s IDCO Episode Detection And Therapy Details IDCO Episode Identifier [id number] IDCO Episode Date Time IDCO Episode Type Category Other IDCO Episode Vendor Type Category XANDER IDCO Episode Detection Interval Ventricular 968 ms IDCO Episode Duration 59 s IDCO Episode Detection And Therapy Details IDCO Episode Identifier [id number] IDCO Episode Date Time IDCO Episode Type Category Other IDCO Episode Vendor Type Category XANDER IDCO Episode Detection Interval Ventricular 984 ms IDCO Episode Duration 57 s IDCO Episode Detection And Therapy Details IDCO Episode Identifier [id number] IDCO Episode Date Time IDCO Episode Type Category Other IDCO Episode Vendor Type Category XANDER IDCO Episode Detection Interval Ventricular 952 ms IDCO Episode Duration 57 s IDCO Episode Detection And Therapy Details Q IDCO Episode Identifier [id number] IDCO Episode Date Time IDCO Episode Type Category Other IDCO Episode Vendor Type Category XANDER IDCO Episode Detection Interval Ventricular 1,053 ms IDCO Episode Duration 59 s IDCO Episode Detection And Therapy Details Q IDCO Episode Identifier [id number] IDCO Episode Date Time IDCO Episode Type Category Other IDCO Episode Vendor Type Category XANDER IDCO Episode Detection Interval Ventricular 1,000 ms IDCO Episode Duration 58 s IDCO Episode Detection And Therapy Details IDCO Episode Identifier [id number] IDCO Episode Date Time IDCO Episode Type Category Other IDCO Episode Vendor Type Category XANDER IDCO Episode Detection Interval Ventricular 984 ms IDCO Episode Duration 176 s IDCO Episode Detection And Therapy Details IDCO Episode Identifier [id number] IDCO Episode Date Time IDCO Episode Type Category Other IDCO Episode Vendor Type Category XANDER IDCO Episode Detection Interval Ventricular 1,071 ms IDCO Episode Duration 58 s IDCO Episode Detection And Therapy Details IDCO Episode Statistic Type Category VF IDCO Episode Statistic Vendor Type Category VF IDCO Episode Statistic Recent Count 0 IDCO Episode Statistic Recent Date Time Start 20210807 IDCO Episode Statistic Recent Date Time End 20211022 IDCO Episode Statistic Type Category VT IDCO Episode Statistic Vendor Type Category VT IDCO Episode Statistic Recent Count 0 IDCO Episode Statistic Recent Date Time Start 20210807 IDCO Episode Statistic Recent Date Time End 20211022 IDCO Episode Statistic Type Category VT IDCO Episode Statistic Vendor Type Category VT-1 IDCO Episode Statistic Recent Count 0 IDCO Episode Statistic Recent Date Time Start 20210807 IDCO Episode Statistic Recent Date Time End 20211022 IDCO Episode Statistic Type Category Monitor IDCO Episode Statistic Vendor Type Category IDCO Episode Statistic Recent Count 0 IDCO Episode Statistic Recent Date Time Start 20210807 IDCO Episode Statistic Recent Date Time End 20211022 IDCO Episode Statistic Type Category Other IDCO Episode Statistic Vendor Type Category IDCO Episode Statistic Recent Count 0 IDCO Episode Statistic Recent Date Time Start 20210807 IDCO Episode Statistic Recent Date Time End 20211022 IDCO Episode Statistic Type Category VT IDCO Episode Statistic Vendor Type Category NSVT IDCO Episode Statistic Recent Count 0 IDCO Episode Statistic Recent Date Time Start 20210807 IDCO Episode Statistic Recent Date Time End 20211022 IDCO Episode Statistic Type Category AT/AF IDCO Episode Statistic Vendor Type Category ATR IDCO Episode Statistic Recent Count 0 IDCO Episode Statistic Recent Date Time Start 20210807 IDCO Episode Statistic Recent Date Time End 20211022 IDCO Albaro Setting AT Mode Switch Mode [...] E162 IDCO Implantable Pulse Generator Serial Number [id number] IDCO Implantable Pulse Generator Manager Of Sales [place] [employer] IDCO Implantable Pulse Generator Implant Date 20140110 IDCO Implantable Lead Model 4136 IDCO Implantable Lead Serial Number [id number] IDCO Implantable Lead Manager Of Sales Guidant IDCO Implantable Lead Implant Date 20130421 IDCO Implantable Lead Polarity Type Bipolar Lead IDCO Implantable Lead Location Right Atrium IDCO Implantable Lead Model 0292 IDCO Implantable Lead Serial Number [id number] IDCO Implantable Lead Manager Of Sales [place] Scientific IDCO Implantable Lead Implant Date IDCO Implantable Lead Location Right Ventricle IDCO Lead Channel Measurements Date and Time Start 20210807 IDCO Lead Channel Measurements Date and Time End 20211020 IDCO Lead Channel Sensing Intrinsic Amplitude Mean 2.9 mV IDCO Lead Channel Sensing Polarity Bipolar IDCO Lead Channel Pacing Threshold Amplitude 0.7 V IDCO Lead Channel Pacing Threshold Pulse Width 0.5 ms IDCO Lead Channel Pacing Threshold Measurement Method Retail Selling Specialist Manual IDCO Lead Channel Pacing Threshold Polarity Bipolar IDCO Lead Channel Impedance Value 778 ohms IDCO Lead Channel Impedance Polarity Bipolar IDCO Lead Channel Measurements Date and Time Start 20210807 IDCO Lead Channel Measurements Date and Time End 20211020 IDCO Lead Channel Sensing Intrinsic Amplitude Mean 10.3 mV IDCO Lead Channel Sensing Polarity Bipolar IDCO Lead Channel Pacing Threshold Amplitude 0.8 V IDCO Lead Channel Pacing Threshold Pulse Width 0.5 ms IDCO Lead Channel Pacing Threshold Measurement Method Retail Selling Specialist Manual IDCO Lead Channel Pacing Threshold Polarity Bipolar IDCO Lead Channel Impedance Value 631 ohms IDCO Lead Channel Impedance Polarity Bipolar IDCO Lead High Voltage Channel Date Time 20211020 IDCO Lead High Voltage Channel Impedance 92 ohms IDCO Lead High Voltage Channel Measurement Type Low Voltage Pulse IDCO Statistic Date Time Start 20210807 IDCO Statistic Date Time End 20211022 IDCO Albaro Statistic Date Time Start 20210807 IDCO Albaro Statistic Date Time End 20211022 IDCO Albaro Statistic RA Percent Paced 8 % IDCO Albaro Statistic RV Percent Paced 0 % IDCO Therapy Statistic Recent Date Time Start 20210807 IDCO Therapy Statistic Recent Date Time End 20211022 IDCO Therapy Statistic Recent Shocks Delivered 0 IDCO Therapy Statistic Total Date Time Start 20140110 IDCO Therapy Statistic Total Date Time End 20211022 IDCO Therapy Statistic Total Shocks Delivered 2 IDCO Therapy Statistic Recent Shocks Aborted 0 IDCO Therapy Statistic Total Shocks Aborted 0 IDCO Therapy Statistic Recent ATP Delivered 0 IDCO Therapy Statistic Total ATP Delivered 12 IDCO Anatomical Region Laterality Modality Other 10/22/2021 12:4 2 AM EDT Physician Cardiology IMPLANTABLE CARD IAC DEVICE documented in this encounter Visit Diagnoses Not on filedocumented in this encounter Care Teams Neurodiagnostic Tech Relationship Specialty Start Date End Date Dewayne Carrington MD [facility] [place] [address] PCP - General 09/02/16 documented as of this encounter
--- OUTSIDE RECORDS SUMMARY | 2023-11-03 01:21 | XMS_ITS | Encounter Summary ---
Author Organization [facility] Address [facility] [place] [address] Care Team Providers Care Access Nurse Name Role Phone Dewayne Carrington MD Primary Care Provider [phone] Encounter Details Date Type Department Care Team (Late st Contact Info) Description 12/28/2020 Notes Only Cardiology at [address] [place] [address] Shaheen Molina MD [facility] [place] [address] Social History Tobacco Use Types Packs/Day Years [...] on file documented as of this encounter Progress Notes * Shaheen Molina MD - 12/28/2020 4:05 PM EDT 70. Ischemic cardiomyopathy with fairly preserved LVEF, RCA and LAD disease. Inferior OH on EKG, inferior WMA on echo. VT at 150 bpm, appears to be coming from cardiac crux. No significant femoral arterial disease or aortic stenosis. Shaheen Molina MD [facility] Cardiac Electrophysiology 12/28/2020 4:06 PM documented in this encounter Plan of Treatment Upcoming Encounters Date Type Department Care Team (Late st Contact Info) Description 12/18/2023 10:00 AM EDT Hospital Encounter [place] [address] Arrived documented as of this encounter Visit Diagnoses Not on filedocumented in this encounter Care Teams Access Nurse Relationship Specialty Start Date End Date Dewayne Carrington MD [address] [place] [address] PCP - General 09/02/16 documented as of this encounter
--- OUTSIDE RECORDS SUMMARY | 2023-11-03 01:21 | XMS_ITS | Encounter Summary ---
[place] [address] Care Team Providers Care Stained Glass Window Designer Name Role Phone Dewayne Carrington MD Primary Care Provider [phone] Encounter Details Date Type Department Care Team (Late st Contact Info) Description 09/26/2021 Orders Only Cardiology at [address] [address] Social History Tobacco Use Types Packs/Day Years [...] EDT Hospital Encounter Non-Invasive [place] [address] Arrived documented as of this encounter Procedures Procedure Name Priority Date/Time Associated Diagnosis Comments CARDIAC DEVICE CHECK - REMOTE SCHEDULED Routine 09/26/2021 12:42 AM EDT documented in this encounter Results * Cardiac device check - Remote Scheduled (09/26/2021 12:42 AM EDT) Date Time Interrogation Session IDCO Type Interrogation Session Remote Scheduled IDCO Clinic Name [facility] IDCO Battery Date Time of Measurements IDCO Battery Status Beginning of Service IDCO Battery Remaining Longevity 42 mo IDCO Battery Remaining Percentage 53 % IDCO Capacitor Last Charge Date Time IDCO Capacitor Charge Time 11.6 s IDCO Capacitor Charge Type Reformation IDCO Capacitor Last Charge Date Time IDCO Capacitor Charge Time 3.8 s IDCO Capacitor Charge Energy 21 J IDCO Capacitor Charge Type Shock IDCO Episode Identifier [id number] IDCO Episode Date Time IDCO Episode Type Category Periodic EGM IDCO Episode Vendor Type Category APMRT IDCO Episode Detection And Therapy Details Presenting EGM IDCO Episode Identifier [id number] IDCO Episode Date Time IDCO Episode Type Category Other IDCO Episode Vendor Type Category XANDER IDCO Episode Detection Interval Ventricular 1,000 ms IDCO Episode Duration 47 s IDCO Episode Detection And Therapy Details IDCO Episode Identifier [id number] IDCO Episode Date Time IDCO Episode Type Category Other IDCO Episode Vendor Type Category XANDER IDCO Episode Detection Interval Ventricular 1,053 ms IDCO Episode Duration 48 s IDCO Episode Detection And Therapy Details IDCO Episode Identifier [id number] IDCO Episode Date Time IDCO Episode Type Category Other IDCO Episode Vendor Type Category XANDER IDCO Episode Detection Interval Ventricular 845 ms IDCO Episode Duration 45 s IDCO Episode Detection And Therapy Details IDCO Episode Identifier [id number] IDCO Episode Date Time IDCO Episode Type Category Other IDCO Episode Vendor Type Category XANDER IDCO Episode Detection Interval Ventricular 1,017 ms IDCO Episode Duration 50 s IDCO Episode Detection And Therapy Details IDCO Episode Identifier [id number] IDCO Episode Date Time IDCO Episode Type Category Other IDCO Episode Vendor Type Category XANDER IDCO Episode Detection Interval Ventricular 811 ms IDCO Episode Duration 43 s IDCO Episode Detection And Therapy Details IDCO Episode Identifier [id number] IDCO Episode Date Time IDCO Episode Type Category Other IDCO Episode Vendor Type Category XANDER IDCO Episode Detection Interval Ventricular 822 ms IDCO Episode Duration 45 s IDCO Episode Detection And Therapy Details IDCO Episode Identifier [id number] IDCO Episode Date Time IDCO Episode Type Category Other IDCO Episode Vendor Type Category XANDER IDCO Episode Detection Interval Ventricular 896 ms IDCO Episode Duration 47 s IDCO Episode Detection And Therapy Details IDCO Episode Identifier [id number] IDCO Episode Date Time IDCO Episode Type Category Other IDCO Episode Vendor Type Category XANDER IDCO Episode Detection Interval Ventricular 811 ms IDCO Episode Duration 47 s IDCO Episode Detection And Therapy Details IDCO Episode Identifier [id number] IDCO Episode Date Time IDCO Episode Type Category Other IDCO Episode Vendor Type Category XANDER IDCO Episode Detection Interval Ventricular 882 ms IDCO Episode Duration 47 s IDCO Episode Detection And Therapy Details IDCO Episode Identifier [id number] IDCO Episode Date Time IDCO Episode Type Category Other IDCO Episode Vendor Type Category XANDER IDCO Episode Detection Interval Ventricular 968 ms IDCO Episode Duration 49 s IDCO Episode Detection And Therapy Details IDCO Episode Statistic Type Category VF IDCO Episode Statistic Vendor Type Category VF IDCO Episode Statistic Recent Count 0 IDCO Episode Statistic Recent Date Time Start 20210807 IDCO Episode Statistic Recent Date Time End 20210926 IDCO Episode Statistic Type Category VT IDCO Episode Statistic Vendor Type Category VT IDCO Episode Statistic Recent Count 0 IDCO Episode Statistic Recent Date Time Start 20210807 IDCO Episode Statistic Recent Date Time End 20210926 IDCO Episode Statistic Type Category VT IDCO Episode Statistic Vendor Type Category VT-1 IDCO Episode Statistic Recent Count 0 IDCO Episode Statistic Recent Date Time Start 20210807 IDCO Episode Statistic Recent Date Time End 20210926 IDCO Episode Statistic Type Category Monitor IDCO Episode Statistic Vendor Type Category IDCO Episode Statistic Recent Count 0 IDCO Episode Statistic Recent Date Time Start 20210807 IDCO Episode Statistic Recent Date Time End 20210926 IDCO Episode Statistic Type Category Other IDCO Episode Statistic Vendor Type Category IDCO Episode Statistic Recent Count 0 IDCO Episode Statistic Recent Date Time Start 20210807 IDCO Episode Statistic Recent Date Time End 20210926 IDCO Episode Statistic Type Category VT IDCO Episode Statistic Vendor Type Category NSVT IDCO Episode Statistic Recent Count 0 IDCO Episode Statistic Recent Date Time Start 20210807 IDCO Episode Statistic Recent Date Time End 20210926 IDCO Episode Statistic Type Category AT/AF IDCO Episode Statistic Vendor Type Category ATR IDCO Episode Statistic Recent Count 0 IDCO Episode Statistic Recent Date Time Start 20210807 IDCO Episode Statistic Recent Date Time End 20210926 IDCO Albaro Setting AT Mode Switch Mode [...] E162 IDCO Implantable Pulse Generator Serial Number [id number] IDCO Implantable Pulse Generator Visual Educator [place] Scientific IDCO Implantable Pulse Generator Implant Date 20140110 IDCO Implantable Lead Model 4136 IDCO Implantable Lead Serial Number [id number] IDCO Implantable Lead Visual Educator Guidant IDCO Implantable Lead Implant Date 20130421 IDCO Implantable Lead Polarity Type Bipolar Lead IDCO Implantable Lead Location Right Atrium IDCO Implantable Lead Model 0292 IDCO Implantable Lead Serial Number [id number] IDCO Implantable Lead Visual Educator [place] [employer] IDCO Implantable Lead Implant Date IDCO Implantable Lead Location Right Ventricle IDCO Lead Channel Measurements Date and Time Start 20210807 IDCO Lead Channel Measurements Date and Time End 20210925 IDCO Lead Channel Sensing Intrinsic Amplitude Mean 3.0 mV IDCO Lead Channel Sensing Polarity Bipolar IDCO Lead Channel Pacing Threshold Amplitude 0.7 V IDCO Lead Channel Pacing Threshold Pulse Width 0.5 ms IDCO Lead Channel Pacing Threshold Measurement Method Associate Theatre Professor Manual IDCO Lead Channel Pacing Threshold Polarity Bipolar IDCO Lead Channel Impedance Value 767 ohms IDCO Lead Channel Impedance Polarity Bipolar IDCO Lead Channel Measurements Date and Time Start 20210807 IDCO Lead Channel Measurements Date and Time End 20210925 IDCO Lead Channel Sensing Intrinsic Amplitude Mean 11.4 mV IDCO Lead Channel Sensing Polarity Bipolar IDCO Lead Channel Pacing Threshold Amplitude 0.8 V IDCO Lead Channel Pacing Threshold Pulse Width 0.5 ms IDCO Lead Channel Pacing Threshold Measurement Method Associate Theatre Professor Manual IDCO Lead Channel Pacing Threshold Polarity Bipolar IDCO Lead Channel Impedance Value 600 ohms IDCO Lead Channel Impedance Polarity Bipolar IDCO Lead High Voltage Channel Date Time 20210925 IDCO Lead High Voltage Channel Impedance 89 ohms IDCO Lead High Voltage Channel Measurement Type Low Voltage Pulse IDCO Statistic Date Time Start 20210807 IDCO Statistic Date Time End 20210926 IDCO Albaro Statistic Date Time Start 20210807 IDCO Albaro Statistic Date Time End 20210926 IDCO Albaro Statistic RA Percent Paced 9 % IDCO Albaro Statistic RV Percent Paced 0 % IDCO Therapy Statistic Recent Date Time Start 20210807 IDCO Therapy Statistic Recent Date Time End 20210926 IDCO Therapy Statistic Recent Shocks Delivered 0 IDCO Therapy Statistic Total Date Time Start 20140110 IDCO Therapy Statistic Total Date Time End 20210926 IDCO Therapy Statistic Total Shocks Delivered 2 IDCO Therapy Statistic Recent Shocks Aborted 0 IDCO Therapy Statistic Total Shocks Aborted 0 IDCO Therapy Statistic Recent ATP Delivered 0 IDCO Therapy Statistic Total ATP Delivered 12 IDCO Anatomical Region Laterality Modality Other 09/26/2021 12:4 2 AM EDT Physician Cardiology IMPLANTABLE CARD IAC DEVICE documented in this encounter Visit Diagnoses Not on filedocumented in this encounter Care Teams Stained Glass Window Designer Relationship Specialty Start Date End Date Dewayne Carrington MD [facility] [place] [address] PCP - General 09/02/16 documented as of this encounter
--- OUTSIDE RECORDS SUMMARY | 2023-11-03 01:21 | XMS_ITS | Encounter Summary ---
Author Organization [facility] Address [facility] [place] [address] Care Team Providers Care Conductor/Engineer Name Role Phone Dewayne Carrington MD Primary Care Provider [phone] Encounter Details Date Type Department Care Team (Latest Contact Info) Description 12/26/2021 - 12/26/2021 11:59 PM EDT Hospital Encounter Non-[place] [address] Ta Negron MD [facility] [place] [address] V-tach Discharge Disposition: Home Social History Tobacco [...] AM EDT Hospital Encounter Non-[place] [address] Arrived documented as of this encounter Procedures Procedure Name Priority Date/Time Associated Diagnosis Comments ICD INTERROGATION 3 MONTH Routine 12/27/2021 12:40 PM EDT V-tach documented in this encounter Results * ICD INTERROGATION 3 MONTH (12/27/2021 12:40 PM EDT) Anatomical Region Laterality Modality Other Narrative 12/27/2021 1:23 PM EDT Cardiac Device Remote Monitoring Report Summary [employer] Interactive Latitude Device: ICD Model: INCEPTA Battery: 'beginning of service' 3 years 6 months Pacing percentage: Minimal pacing Events: Presenting rhythm: atrial sensed/ventricular sensed Electrical lead noise observed Nov 21 Impression Normal device function Follow Up As per schedule - in-clinic and remote TA NEGRON MD 12/27/21 Ta Negron MD IMPLANTABLE CARDIAC DEVICE documented in this encounter Visit Diagnoses Diagnosis V-tach Paroxysmal ventricular tachycardia documented in this encounter Care Teams Conductor/Engineer Relationship Specialty Start Date End Date Dewayne Carrington MD [facility] [place] [address] PCP - General 09/02/16 documented as of this encounter
--- OUTSIDE RECORDS SUMMARY | 2023-11-03 01:21 | XMS_ITS | Encounter Summary ---
[place] [address] Care Team Providers Care Ballast Regulator Operator Name Role Phone Dewayne Carrington MD Primary Care Provider [phone] Reason for Referral * Consultation (Routine) - Closed Specialty Diagnoses / Procedures Referred By Conteddie t Referred To Contact Gastroenterology Diagnoses Steatohepatitis Dewayne Carrington MD [address] [place] [address] [facility] [place] [address] Referral ID Status Reason Start Date Expiration Date V isits Requested Visits Authorized [id number] Closed Consult, Test & Treat PCP Updated and/or Approved 02/22/2022 02/22/2023 6 6 Encounter Details Date Type Department Care Team (Late st Contact Info) Description 02/22/2022 Transcribe Orders eDH Incoming Referrals [phone] Dewayne Carrington MD [address] [place] [address] Steatohepatitis Social History Tobacco Use Types Packs/Day Years [...] AM EDT Hospital Encounter Non-Invasive [place] [address] Arrived Scheduled Referrals Name Type Priority Associated Diagnoses Order Schedule Referral to Gastroenterology Outpatient Referral Routine Steatohepatitis Ordered: 02/22/2022 documented as of this encounter Visit Diagnoses Diagnosis Steatohepatitis Other chronic nonalcoholic liver disease documented in this encounter Care Teams Ballast Regulator Operator Relationship Specialty Start Date End Date Deawyne Carrington MD [address] [place] [address] PCP - General 09/02/16 documented as of this encounter
--- OUTSIDE RECORDS SUMMARY | 2023-11-03 01:21 | XMS_ITS | Encounter Summary ---
Author Organization [facility] Address [facility] [place] [address] Care Team Providers Care Dial Lathe Operator Name Role Phone Dewayne Carrington MD Primary Care Provider [phone] Encounter Details Date Type Department Care Team (Late st Contact Info) Description 10/22/2021 Notes Only Cardiology at [address] [place] [address] Edy Burns PA [facility] [place] [address] Social History Tobacco Use Types Packs/Day Years [...] as of this encounter Progress Notes * Edy Burns PA - 10/22/2021 4:21 PM EDT Cardiac Electrophysiology Cardiac Implantable Electronic Device Remote Monitoring Interpretation Marquez Hendrix [id number] Transmission Date: 10/22/2021 Device Type: ICD Generator: [employer] E162 INCEPTA ICD / [id number] Battery Status: 3.5 years Charge Time: 11.7 sec Atrial Pacin% Ventricular Pacin% Alerts: Oct 21, 2021 19:16 Shock lead impedance out of range. Events/Arrhythmias noted since last reset: None Impression: Shock lead impedance is 128 ohms. Consulted with [employer] rep Js Szymanski who advised programming thealert threshold to 150 ohms. This will also reset the red alert in the device by interrogating withthe clinical data programmer. Will contact schedulers to bring him into the clinic. Normally functioning device Edy Burns PA-C, PhD 10/22/2021 Pager [phone] documented in this encounter Plan of Treatment Upcoming Encounters Date Type Department Care Team (Late st Contact Info) Description 12/18/2023 10:00 AM EDT Hospital Encounter Non-[place] [address] Arrived documented as of this encounter Visit Diagnoses Not on filedocumented in this encounter Care Teams Dial Lathe Operator Relationship Specialty Start Date End Date Dewayne Carrington MD [address] [place] [address] PCP - General 09/02/16 documented as of this encounter
--- OUTSIDE RECORDS SUMMARY | 2023-11-03 01:21 | XMS_ITS | Encounter Summary ---
[place] [address] Care Team Providers Care Education Paraprofessional Name Role Phone Dewayne Carrington MD Primary Care Provider [phone] Encounter Details Date Type Department Care Team (Late st Contact Info) Description 09/17/2021 Orders Only Cardiology at [address] [address] Social History Tobacco Use Types Packs/Day Years [...] AM EDT Hospital Encounter Non-[place] [address] Arrived documented as of this encounter Procedures Procedure Name Priority Date/Time Associated Diagnosis Comments CARDIAC DEVICE CHECK - REMOTE Routine 09/17/2021 11:35 AM EDT documented in this encounter Results * Cardiac Device Check - Remote (09/17/2021 11:35 AM EDT) Date Time Interrogation Session IDCO Type Interrogation Session Remote IDCO Clinic Name [facility] IDCO Battery Date Time of Measurements [...] Capacitor Charge Type Shock IDCO Episode Identifier [id number] IDCO Episode Date Time IDCO Episode Type Category Other IDCO Episode Vendor Type Category XANDER IDCO Episode Detection Interval Ventricular 1,071 ms IDCO Episode Duration 59 s IDCO Episode Detection And Therapy Details IDCO Episode Identifier [id number] IDCO Episode Date Time IDCO Episode Type Category Other IDCO Episode Vendor Type Category XANDER IDCO Episode Detection Interval Ventricular 909 ms IDCO Episode Duration 51 s IDCO Episode Detection And Therapy Details IDCO Episode Identifier -[id number] IDCO Episode Date Time IDCO Episode Type Category Other IDCO Episode Vendor Type Category XANDER IDCO Episode Detection Interval Ventricular 923 ms IDCO Episode Duration 53 s IDCO Episode Detection And Therapy Details IDCO Episode Identifier -[id number] IDCO Episode Date Time IDCO Episode Type Category Other IDCO Episode Vendor Type Category XANDER IDCO Episode Detection Interval Ventricular 1,277 ms IDCO Episode Duration 60 s IDCO Episode Detection And Therapy Details IDCO Episode Identifier -[id number] IDCO Episode Date Time IDCO Episode Type Category Other IDCO Episode Vendor Type Category XANDER IDCO Episode Detection Interval Ventricular 952 ms IDCO Episode Duration 57 s IDCO Episode Detection And Therapy Details IDCO Episode Identifier -[id number] IDCO Episode Date Time IDCO Episode Type Category Other IDCO Episode Vendor Type Category XANDER IDCO Episode Detection Interval Ventricular 1,000 ms IDCO Episode Duration 60 s IDCO Episode Detection And Therapy Details IDCO Episode Identifier -[id number] IDCO Episode Date Time IDCO Episode Type Category Other IDCO Episode Vendor Type Category XANDER IDCO Episode Detection Interval Ventricular 1,364 ms IDCO Episode Duration 1,669 s IDCO Episode Detection And Therapy Details IDCO Episode Identifier [id number] IDCO Episode Date Time IDCO Episode Type Category Other IDCO Episode Vendor Type Category XANDER IDCO Episode Detection Interval Ventricular 938 ms IDCO Episode Duration 55 s IDCO Episode Detection And Therapy Details IDCO Episode Identifier [id number] IDCO Episode Date Time IDCO Episode Type Category Other IDCO Episode Vendor Type Category XANDER IDCO Episode Detection Interval Ventricular 1,132 ms IDCO Episode Duration 53 s IDCO Episode Detection And Therapy Details IDCO Episode Identifier [id number] IDCO Episode Date Time IDCO Episode Type Category Other IDCO Episode Vendor Type Category XANDER IDCO Episode Detection Interval Ventricular 923 ms IDCO Episode Duration 56 s IDCO Episode Detection And Therapy Details IDCO Episode Statistic Type Category VF IDCO Episode Statistic Vendor Type Category VF IDCO Episode Statistic Recent Count 0 IDCO Episode Statistic Recent Date Time Start 20210807 IDCO Episode Statistic Recent Date Time End 20210917 IDCO Episode Statistic Type Category VT IDCO Episode Statistic Vendor Type Category VT IDCO Episode Statistic Recent Count 0 IDCO Episode Statistic Recent Date Time Start 20210807 IDCO Episode Statistic Recent Date Time End 20210917 IDCO Episode Statistic Type Category VT IDCO Episode Statistic Vendor Type Category VT-1 IDCO Episode Statistic Recent Count 0 IDCO Episode Statistic Recent Date Time Start 20210807 IDCO Episode Statistic Recent Date Time End 20210917 IDCO Episode Statistic Type Category Monitor IDCO Episode Statistic Vendor Type Category IDCO Episode Statistic Recent Count 0 IDCO Episode Statistic Recent Date Time Start 20210807 IDCO Episode Statistic Recent Date Time End 20210917 IDCO Episode Statistic Type Category Other IDCO Episode Statistic Vendor Type Category IDCO Episode Statistic Recent Count 0 IDCO Episode Statistic Recent Date Time Start 20210807 IDCO Episode Statistic Recent Date Time End 20210917 IDCO Episode Statistic Type Category VT IDCO Episode Statistic Vendor Type Category NSVT IDCO Episode Statistic Recent Count 0 IDCO Episode Statistic Recent Date Time Start 20210807 IDCO Episode Statistic Recent Date Time End 20210917 IDCO Episode Statistic Type Category AT/AF IDCO Episode Statistic Vendor Type Category ATR IDCO Episode Statistic Recent Count 0 IDCO Episode Statistic Recent Date Time Start 20210807 IDCO Episode Statistic Recent Date Time End 20210917 IDCO Albaro Setting AT Mode Switch Mode [...] E162 IDCO Implantable Pulse Generator Serial Number [id number] IDCO Implantable Pulse Generator Franchise Broker [place] IDCO Implantable Pulse Generator Implant Date 20140110 IDCO Implantable Lead Model 4136 IDCO Implantable Lead Serial Number [id number] IDCO Implantable Lead Franchise Broker Guidant IDCO Implantable Lead Implant Date 20130421 IDCO Implantable Lead Polarity Type Bipolar Lead IDCO Implantable Lead Location Right Atrium IDCO Implantable Lead Model 0292 IDCO Implantable Lead Serial Number [id number] IDCO Implantable Lead Franchise Broker [place] IDCO Implantable Lead Implant Date IDCO Implantable Lead Location Right Ventricle IDCO Lead Channel Measurements Date and Time Start 20210807 IDCO Lead Channel Measurements Date and Time End 20210915 IDCO Lead Channel Sensing Intrinsic Amplitude Mean 2.9 mV IDCO Lead Channel Sensing Polarity Bipolar IDCO Lead Channel Pacing Threshold Amplitude 0.7 V IDCO Lead Channel Pacing Threshold Pulse Width 0.5 ms IDCO Lead Channel Pacing Threshold Measurement Method Garment Alteration Examiner Manual IDCO Lead Channel Pacing Threshold Polarity Bipolar IDCO Lead Channel Impedance Value 787 ohms IDCO Lead Channel Impedance Polarity Bipolar IDCO Lead Channel Measurements Date and Time Start 20210807 IDCO Lead Channel Measurements Date and Time End 20210915 IDCO Lead Channel Sensing Intrinsic Amplitude Mean 11.9 mV IDCO Lead Channel Sensing Polarity Bipolar IDCO Lead Channel Pacing Threshold Amplitude 0.8 V IDCO Lead Channel Pacing Threshold Pulse Width 0.5 ms IDCO Lead Channel Pacing Threshold Measurement Method Garment Alteration Examiner Manual IDCO Lead Channel Pacing Threshold Polarity Bipolar IDCO Lead Channel Impedance Value 605 ohms IDCO Lead Channel Impedance Polarity Bipolar IDCO Lead High Voltage Channel Date Time 20210915 IDCO Lead High Voltage Channel Impedance 92 ohms IDCO Lead High Voltage Channel Measurement Type Low Voltage Pulse IDCO Statistic Date Time Start 20210807 IDCO Statistic Date Time End 20210917 IDCO Alabro Statistic Date Time Start 20210807 IDCO Albaro Statistic Date Time End 20210917 IDCO Albaro Statistic RA Percent Paced 10 % IDCO Albaro Statistic RV Percent Paced 0 % IDCO Therapy Statistic Recent Date Time Start 20210807 IDCO Therapy Statistic Recent Date Time End 20210917 IDCO Therapy Statistic Recent Shocks Delivered 0 IDCO Therapy Statistic Total Date Time Start 20140110 IDCO Therapy Statistic Total Date Time End 20210917 IDCO Therapy Statistic Total Shocks Delivered 2 IDCO Therapy Statistic Recent Shocks Aborted 0 IDCO Therapy Statistic Total Shocks Aborted 0 IDCO Therapy Statistic Recent ATP Delivered 0 IDCO Therapy Statistic Total ATP Delivered 12 IDCO Anatomical Region Laterality Modality Other 09/17/2021 11:3 5 AM EDT Physician Cardiology IMPLANTABLE CARD IAC DEVICE documented in this encounter Visit Diagnoses Not on filedocumented in this encounter Care Teams Education Paraprofessional Relationship Specialty Start Date End Date Dewayne Carrington MD [address] [place] [address] PCP - General 09/02/16 documented as of this encounter
--- OUTSIDE RECORDS SUMMARY | 2023-11-03 01:21 | XMS_ITS | Encounter Summary ---
Author Organization [facility] Address [facility] [place] [address] Care Team Providers Care White Shoe Ragger Name Role Phone Dewayne Carrington MD Primary Care Provider [phone] Encounter Details Date Type Department Care Team (Latest Contact Info) Description 03/28/2021 12:11 PM EST - 03/28/2021 11:59 PM EST Hospital Encounter Non-[place] [address] Ta Negron MD [facility] [place] [address] Ventricular tachycardia Discharge Disposition: Home Social History Tobacco Use [...] AM EDT Hospital Encounter Non-[place] [address] Arrived documented as of this encounter Procedures Procedure Name Priority Date/Time Associated Diagnosis Comments ICD INTERROGATION 3 MONTH Routine 03/28/2021 12:11 PM EST Ventricular tachycardia documented in this encounter Results * ICD INTERROGATION 3 MONTH (03/28/2021 12:11 PM EST) Anatomical Region Laterality Modality Other Narrative 03/29/2021 4:43 PM EST Cardiac Device Remote Monitoring Report Summary Snoobe Latitude Device: ICD Model: INCEPTA Battery: Beginning of service, remaining longevity 4 years Pacing percentage: Minimal ventricular pacing Events: Presenting rhythm: Atrial sensed/ventricular sensed No significant arrhythmias Impression Normal device function Follow Up As per schedule - in-clinic and remote TA NEGRON MD 03/29/21 Ta Negron MD IMPLANTABLE CARDIAC DEVICE documented in this encounter Visit Diagnoses Diagnosis Ventricular tachycardia Paroxysmal ventricular tachycardia documented in this encounter Care Teams White Shoe Ragger Relationship Specialty Start Date End Date Deway[place] [address] PCP - General 09/02/16 documented as of this encounter
--- OUTSIDE RECORDS SUMMARY | 2023-11-03 01:21 | XMS_ITS | Encounter Summary ---
[place] [address] Care Team Providers Care Assembler Steam And Gas Turbine Name Role Phone Dewayne Carrington MD Primary Care Provider [phone] Encounter Details Date Type Department Care Team (Late st Contact Info) Description 11/20/2021 Orders Only Cardiology at [address] [address] Social History Tobacco Use Types Packs/Day Years [...] AM EDT Hospital Encounter Non[place] [address] Arrived documented as of this encounter Procedures Procedure Name Priority Date/Time Associated Diagnosis Comments CARDIAC DEVICE CHECK - REMOTE Routine 11/20/2021 9:51 AM EDT documented in this encounter Results * Cardiac Device Check - Remote (11/20/2021 9:51 AM EDT) Date Time Interrogation Session IDCO Type Interrogation Session Remote IDCO Clinic Name [facility] IDCO Battery Date Time of Measurements [...] Capacitor Charge Type Shock IDCO Episode Identifier [id number] IDCO Episode Date Time IDCO Episode Type Category Other IDCO Episode Vendor Type Category XANDER IDCO Episode Detection Interval Ventricular 1,000 ms IDCO Episode Duration 60 s IDCO Episode Detection And Therapy Details IDCO Episode Identifier [id number] IDCO Episode Date Time IDCO Episode Type Category Other IDCO Episode Vendor Type Category XANDER IDCO Episode Detection Interval Ventricular 1,364 ms IDCO Episode Duration 64 s IDCO Episode Detection And Therapy Details IDCO Episode Identifier [id number] IDCO Episode Date Time IDCO Episode Type Category Other IDCO Episode Vendor Type Category XANDER IDCO Episode Detection Interval Ventricular 923 ms IDCO Episode Duration 96 s IDCO Episode Detection And Therapy Details IDCO Episode Identifier [id number] IDCO Episode Date Time [id number] IDCO Episode Type Category Other IDCO Episode Vendor Type Category XANDER IDCO Episode Detection Interval Ventricular 1,000 ms IDCO Episode Duration 101 s IDCO Episode Detection And Therapy Details IDCO Episode Identifier [id number] IDCO Episode Date Time IDCO Episode Type Category Other IDCO Episode Vendor Type Category XANDER IDCO Episode Detection Interval Ventricular 1,034 ms IDCO Episode Duration 55 s IDCO Episode Detection And Therapy Details IDCO Episode Identifier [id number] IDCO Episode Date Time IDCO Episode Type Category Other IDCO Episode Vendor Type Category XANDER IDCO Episode Detection Interval Ventricular 1,053 ms IDCO Episode Duration 55 s IDCO Episode Detection And Therapy Details IDCO Episode Identifier [id number] IDCO Episode Date Time IDCO Episode Type Category Other IDCO Episode Vendor Type Category XANDER IDCO Episode Detection Interval Ventricular 1,017 ms IDCO Episode Duration 56 s IDCO Episode Detection And Therapy Details Q IDCO Episode Identifier [id number] IDCO Episode Date Time IDCO Episode Type Category Other IDCO Episode Vendor Type Category XANDER IDCO Episode Detection Interval Ventricular 968 ms IDCO Episode Duration 56 s IDCO Episode Detection And Therapy Details IDCO Episode Identifier [id number] IDCO Episode Date Time IDCO Episode Type Category Other IDCO Episode Vendor Type Category XANDER IDCO Episode Detection Interval Ventricular 1,034 ms IDCO Episode Duration 55 s IDCO Episode Detection And Therapy Details IDCO Episode Identifier [id number] IDCO Episode Date Time IDCO Episode Type Category Other IDCO Episode Vendor Type Category XANDER IDCO Episode Detection Interval Ventricular 1,017 ms IDCO Episode Duration 55 s IDCO Episode Detection And Therapy Details IDCO Episode Statistic Type Category VF IDCO Episode Statistic Vendor Type Category VF IDCO Episode Statistic Recent Count 0 IDCO Episode Statistic Recent Date Time Start 20210807 IDCO Episode Statistic Recent Date Time End 20211120 IDCO Episode Statistic Type Category VT IDCO Episode Statistic Vendor Type Category VT IDCO Episode Statistic Recent Count 0 IDCO Episode Statistic Recent Date Time Start 20210807 IDCO Episode Statistic Recent Date Time End 20211120 IDCO Episode Statistic Type Category VT IDCO Episode Statistic Vendor Type Category VT-1 IDCO Episode Statistic Recent Count 0 IDCO Episode Statistic Recent Date Time Start 20210807 IDCO Episode Statistic Recent Date Time End 20211120 IDCO Episode Statistic Type Category Monitor IDCO Episode Statistic Vendor Type Category IDCO Episode Statistic Recent Count 0 IDCO Episode Statistic Recent Date Time Start 20210807 IDCO Episode Statistic Recent Date Time End 20211120 IDCO Episode Statistic Type Category Other IDCO Episode Statistic Vendor Type Category IDCO Episode Statistic Recent Count 0 IDCO Episode Statistic Recent Date Time Start 20210807 IDCO Episode Statistic Recent Date Time End 20211120 IDCO Episode Statistic Type Category VT IDCO Episode Statistic Vendor Type Category NSVT IDCO Episode Statistic Recent Count 0 IDCO Episode Statistic Recent Date Time Start 20210807 IDCO Episode Statistic Recent Date Time End 20211120 IDCO Episode Statistic Type Category AT/AF IDCO Episode Statistic Vendor Type Category ATR IDCO Episode Statistic Recent Count 0 IDCO Episode Statistic Recent Date Time Start 20210807 IDCO Episode Statistic Recent Date Time End 20211120 IDCO Albaro Setting AT Mode Switch Mode [...] E162 IDCO Implantable Pulse Generator Serial Number [id number] IDCO Implantable Pulse Generator Meter Record Clerk [employer] IDCO Implantable Pulse Generator Implant Date 20140110 IDCO Implantable Lead Model 4136 IDCO Implantable Lead Serial Number [id number] IDCO Implantable Lead Meter Record Clerk Guidant IDCO Implantable Lead Implant Date 20130421 IDCO Implantable Lead Polarity Type Bipolar Lead IDCO Implantable Lead Location Right Atrium IDCO Implantable Lead Model 0292 IDCO Implantable Lead Serial Number [id number] IDCO Implantable Lead Meter Record Clerk [employer] IDCO Implantable Lead Implant Date IDCO Implantable Lead Location Right Ventricle IDCO Lead Channel Measurements Date and Time Start 20210807 IDCO Lead Channel Measurements Date and Time End 20211119 IDCO Lead Channel Sensing Intrinsic Amplitude Mean 3.4 mV IDCO Lead Channel Sensing Polarity Bipolar IDCO Lead Channel Pacing Threshold Amplitude 0.7 V IDCO Lead Channel Pacing Threshold Pulse Width 0.5 ms IDCO Lead Channel Pacing Threshold Measurement Method Senior Advisory Manual IDCO Lead Channel Pacing Threshold Polarity Bipolar IDCO Lead Channel Impedance Value 760 ohms IDCO Lead Channel Impedance Polarity Bipolar IDCO Lead Channel Measurements Date and Time Start 20210807 IDCO Lead Channel Measurements Date and Time End 20211119 IDCO Lead Channel Sensing Intrinsic Amplitude Mean 12.2 mV IDCO Lead Channel Sensing Polarity Bipolar IDCO Lead Channel Pacing Threshold Amplitude 0.8 V IDCO Lead Channel Pacing Threshold Pulse Width 0.5 ms IDCO Lead Channel Pacing Threshold Measurement Method Senior Advisory Manual IDCO Lead Channel Pacing Threshold Polarity Bipolar IDCO Lead Channel Impedance Value 604 ohms IDCO Lead Channel Impedance Polarity Bipolar IDCO Lead High Voltage Channel Date Time 20211119 IDCO Lead High Voltage Channel Impedance 94 ohms IDCO Lead High Voltage Channel Measurement Type Low Voltage Pulse IDCO Statistic Date Time Start 20210807 IDCO Statistic Date Time End 20211120 IDCO Albaro Statistic Date Time Start 20210807 IDCO Albaro Statistic Date Time End 20211120 IDCO Albaro Statistic RA Percent Paced 6 % IDCO Albaro Statistic RV Percent Paced 0 % IDCO Therapy Statistic Recent Date Time Start 20210807 IDCO Therapy Statistic Recent Date Time End 20211120 IDCO Therapy Statistic Recent Shocks Delivered 0 IDCO Therapy Statistic Total Date Time Start 20140110 IDCO Therapy Statistic Total Date Time End 20211120 IDCO Therapy Statistic Total Shocks Delivered 2 IDCO Therapy Statistic Recent Shocks Aborted 0 IDCO Therapy Statistic Total Shocks Aborted 0 IDCO Therapy Statistic Recent ATP Delivered 0 IDCO Therapy Statistic Total ATP Delivered 12 IDCO Anatomical Region Laterality Modality Other 11/20/2021 9:51 AM EDT Physician Cardiology IMPLANTABLE CARD IAC DEVICE documented in this encounter Visit Diagnoses Not on filedocumented in this encounter Care Teams Assembler Steam And Gas Turbine Relationship Specialty Start Date End Date Dewayne Carrington MD [address] [place] [address] PCP - General 09/02/16 documented as of this encounter
--- OUTSIDE RECORDS SUMMARY | 2023-11-03 01:21 | XMS_ITS | Encounter Summary ---
[place] [address] Care Team Providers Care [employer] Developer Name Role Phone Dewayne Carrington MD Primary Care Provider [phone] Encounter Details Date Type Department Care Team (Late st Contact Info) Description 06/27/2021 Orders Only Cardiology at [address] [address] Social History Tobacco Use Types Packs/Day Years [...] AM EDT Hospital Encounter Non-[place] [address] Arrived documented as of this encounter Procedures Procedure Name Priority Date/Time Associated Diagnosis Comments CARDIAC DEVICE CHECK - REMOTE SCHEDULED Routine 06/27/2021 12:41 AM EST documented in this encounter Results * Cardiac device check - Remote Scheduled (06/27/2021 12:41 AM EST) Date Time Interrogation Session IDCO Type Interrogation Session Remote Scheduled IDCO Clinic Name [facility] IDCO Battery Date Time of Measurements [...] Capacitor Charge Type Shock IDCO Episode Identifier [id number] IDCO Episode Date Time IDCO Episode Type Category Periodic EGM IDCO Episode Vendor Type Category APMRT IDCO Episode Detection And Therapy Details Presenting EGM IDCO Episode Identifier [id number] IDCO Episode Date Time IDCO Episode Type Category Other IDCO Episode Vendor Type Category XANDER IDCO Episode Detection Interval Ventricular 909 ms IDCO Episode Duration 53 s IDCO Episode Detection And Therapy Details IDCO Episode Identifier [id number] IDCO Episode Date Time IDCO Episode Type Category Other IDCO Episode Vendor Type Category XANDER IDCO Episode Detection Interval Ventricular 923 ms IDCO Episode Duration 54 s IDCO Episode Detection And Therapy Details IDCO Episode Identifier [id number] IDCO Episode Date Time IDCO Episode Type Category Other IDCO Episode Vendor Type Category XANDER IDCO Episode Detection Interval Ventricular 923 ms IDCO Episode Duration 53 s IDCO Episode Detection And Therapy Details IDCO Episode Identifier [id number] IDCO Episode Date Time IDCO Episode Type Category Other IDCO Episode Vendor Type Category XANDER IDCO Episode Detection Interval Ventricular 923 ms IDCO Episode Duration 139 s IDCO Episode Detection And Therapy Details IDCO Episode Identifier [id number] IDCO Episode Date Time IDCO Episode Type Category Other IDCO Episode Vendor Type Category XANDER IDCO Episode Detection Interval Ventricular 938 ms IDCO Episode Duration 110 s IDCO Episode Detection And Therapy Details IDCO Episode Identifier [id number] IDCO Episode Date Time IDCO Episode Type Category Other IDCO Episode Vendor Type Category XANDER IDCO Episode Detection Interval Ventricular 938 ms IDCO Episode Duration 56 s IDCO Episode Detection And Therapy Details IDCO Episode Identifier [id number] IDCO Episode Date Time IDCO Episode Type Category Other IDCO Episode Vendor Type Category XANDER IDCO Episode Detection Interval Ventricular 952 ms IDCO Episode Duration 58 s IDCO Episode Detection And Therapy Details IDCO Episode Identifier [id number] IDCO Episode Date Time IDCO Episode Type Category Other IDCO Episode Vendor Type Category XANDER IDCO Episode Detection Interval Ventricular 952 ms IDCO Episode Duration 56 s IDCO Episode Detection And Therapy Details IDCO Episode Identifier [id number] IDCO Episode Date Time IDCO Episode Type Category Other IDCO Episode Vendor Type Category XANDER IDCO Episode Detection Interval Ventricular 952 ms IDCO Episode Duration 57 s IDCO Episode Detection And Therapy Details IDCO Episode Identifier [id number] IDCO Episode Date Time IDCO Episode Type [...] IDCO Episode Statistic Recent Date Time End 20210627 IDCO Episode Statistic Type Category VT IDCO Episode Statistic Vendor Type Category VT IDCO Episode Statistic Recent Count 0 IDCO Episode Statistic Recent Date Time Start 20210320 IDCO Episode Statistic Recent Date Time End 20210627 IDCO Episode Statistic Type Category VT IDCO Episode Statistic Vendor Type Category VT-1 IDCO Episode Statistic Recent Count 0 IDCO Episode Statistic Recent Date Time Start 20210320 IDCO Episode Statistic Recent Date Time End 20210627 IDCO Episode Statistic Type Category Monitor IDCO Episode Statistic Vendor Type Category IDCO Episode Statistic Recent Count 0 IDCO Episode Statistic Recent Date Time Start 20210320 IDCO Episode Statistic Recent Date Time End 20210627 IDCO Episode Statistic Type Category Other IDCO Episode Statistic Vendor Type Category IDCO Episode Statistic Recent Count 0 IDCO Episode Statistic Recent Date Time Start 20210320 IDCO Episode Statistic Recent Date Time End 20210627 IDCO Episode Statistic Type Category VT IDCO Episode Statistic Vendor Type Category NSVT IDCO Episode Statistic Recent Count 0 IDCO Episode Statistic Recent Date Time Start 20210320 IDCO Episode Statistic Recent Date Time End 20210627 IDCO Episode Statistic Type Category AT/AF IDCO Episode Statistic Vendor Type Category ATR IDCO Episode Statistic Recent Count 0 IDCO Episode Statistic Recent Date Time Start 20210320 IDCO Episode Statistic Recent Date Time End 20210627 IDCO Albaro Setting AT Mode Switch Mode [...] E162 IDCO Implantable Pulse Generator Serial Number [id number] IDCO Implantable Pulse Generator [employer] Consult[employer] [place] [employer] IDCO Implantable Pulse Generator Implant Date 20140110 IDCO Implantable Lead Model 4136 IDCO Implantable Lead Serial Number [id number] IDCO Implantable Lead [employer] Consultant Guidant IDCO Implantable Lead Implant Date 20130421 IDCO Implantable Lead Polarity Type Bipolar Lead IDCO Implantable Lead Location Right Atrium IDCO Implantable Lead Model 0292 IDCO Implantable Lead Serial Number [id number] IDCO Implantable Lead [employer] Consult[employer] [place] [employer] IDCO Implantable Lead Implant Date IDCO Implantable Lead Location Right Ventricle IDCO Lead Channel Measurements Date and Time Start 20210320 IDCO Lead Channel Measurements Date and Time End 20210626 IDCO Lead Channel Sensing Intrinsic Amplitude Mean 3.3 mV IDCO Lead Channel Sensing Polarity Bipolar IDCO Lead Channel Pacing Threshold Amplitude 0.8 V IDCO Lead Channel Pacing Threshold Pulse Width 0.5 ms IDCO Lead Channel Pacing Threshold Measurement Method Yard Cleaner Manual IDCO Lead Channel Pacing Threshold Polarity Bipolar IDCO Lead Channel Impedance Value 753 ohms IDCO Lead Channel Impedance Polarity Bipolar IDCO Lead Channel Measurements Date and Time Start 20210320 IDCO Lead Channel Measurements Date and Time End 20210626 IDCO Lead Channel Sensing Intrinsic Amplitude Mean 11.1 mV IDCO Lead Channel Sensing Polarity Bipolar IDCO Lead Channel Pacing Threshold Amplitude 0.8 V IDCO Lead Channel Pacing Threshold Pulse Width 0.5 ms IDCO Lead Channel Pacing Threshold Measurement Method Yard Cleaner Manual IDCO Lead Channel Pacing Threshold Polarity Bipolar IDCO Lead Channel Impedance Value 588 ohms IDCO Lead Channel Impedance Polarity Bipolar IDCO Lead High Voltage Channel Date Time 20210626 IDCO Lead High Voltage Channel Impedance 102 ohms IDCO Lead High Voltage Channel Measurement Type Low Voltage Pulse IDCO Statistic Date Time Start 20210320 IDCO Statistic Date Time End 20210627 IDCO Albaro Statistic Date Time Start 20210320 IDCO Albaro Statistic Date Time End 20210627 IDCO Albaro Statistic RA Percent Paced 9 % IDCO Albaro Statistic RV Percent Paced 1 % IDCO Therapy Statistic Recent Date Time Start 20210320 IDCO Therapy Statistic Recent Date Time End 20210627 IDCO Therapy Statistic Recent Shocks Delivered 0 IDCO Therapy Statistic Total Date Time Start 20140110 IDCO Therapy Statistic Total Date Time End 20210627 IDCO Therapy Statistic Total Shocks Delivered 2 IDCO Therapy Statistic Recent Shocks Aborted 0 IDCO Therapy Statistic Total Shocks Aborted 0 IDCO Therapy Statistic Recent ATP Delivered 0 IDCO Therapy Statistic Total ATP Delivered 12 IDCO Anatomical Region Laterality Modality Other 06/27/2021 12:4 1 AM EST Physician Cardiology IMPLANTABLE CARD IAC DEVICE documented in this encounter Visit Diagnoses Not on filedocumented in this encounter Care Teams [employer] Developer Relationship Specialty Start Date End Date Dewayne Carrington MD [facility] [place] [address] PCP - General 09/02/16 documented as of this encounter
--- OUTSIDE RECORDS SUMMARY | 2023-11-03 01:21 | XMS_ITS | Encounter Summary ---
Author Organization [facility] Address [facility] [place] [address] Care Team Providers Care Painting Manager Name Role Phone Dewayne Carrington MD Primary Care Provider [phone] Reason for Visit * Consultation (Routine) - Specialty Diagnoses / Procedures Referred By Contac t Referred To Contact Gastroenterology Diagnoses Fatty (change of) liver, not elsewhere classified fatty liver- Dewayne Carrington MD [address] [place] [phone] [facility] [place] [address] Referral ID Status Reason Start Date Expiration Date V isits Requested Visits Authorized [id number] Consult, Test & Treat Connection [facility] PCP Updated and/or Approved 09/03/2020 03/02/2021 6 6 Encounter Details Date Type Department Care Team ([facility] st Contact Info) Description 03/19/2021 2:30 PM EST Office [place] [address] Elsie Cristobal MD [facility] [address] Abnormal liver function test; Fatty liver Social History Tobacco Use Types [...] Sign Reading Time Taken Comments Blood Pressure 107/59 03/19/2021 2:44 PM EST Pulse 60 03/19/2021 2:44 PM EST Temperature - - Respiratory Rate - - Oxygen Saturation - - Inhaled Oxygen Concentration - - Weight 89.1 kg (196 lb 6.4 oz) 03/19/2021 2:44 P M EST Height - - Body Mass Index 25.56 12/12/2020 10:39 AM EDT documented in this encounter Progress Notes * Elsie Cristobal MD - 03/19/2021 2:30 PM EST Images from the original note were not included. HEPATOLOGY CONSULTATION Marquez Hendrix 1950 RN OBSERVATION: Elsie Cristobal MD ([id number]) PCP: Dewayne Carrington MD Requesting Provider: REASON FOR CONSULTATION elevated liver tests HISTORY OF PRESENT ILLNESS Marquez Hendrix is a 70 y.o. year old being seen a the request of Dr. Carrington for evaluation of elevated liver tests. He was noted to have fatty liver on ultrasound in Nov 2019. Liver tests have shownAST/ALT about twice normal, normal alk phos. The patient notes that he was told his liver looked scarred at the time of [facility] around 1999. The surgeon told his he would soon if he did not stop drinking. He stopped alcohol completely atthat time. His risk factors for liver disease include alcohol as he was a moderate to heavy drinker till 1999.He has been diabetic since 1989's. He was overweight and lost about 40 lbs over past ten years intentionally. Amiodorone- Started September 2020 Viibryd- several years 09/01/2018 12/12/2020 Total Protein 7.5 7.5 Albumin 4.6 4.7 Total Bilirubin 0.4 0.5 Bili, Direct 0.2 Alk Phos 70 83 AST 41 (H) 57 (H) ALT 41 57 (H) Iron studies: iron sat 25% Hep B surface ag negative US 11/2019: ROS: Constitutional: no weight loss HEENT: no visual changes, no URI symptoms Cardio: no chest pain Resp: no cough, no SOB, no LLOYD or orthopnea Hem/Lymph: no new lumps or bumps on body GI: see HPI : no dysuria Integumentary: no new rashes Musculoskeletal: no new joint pains Neuro: no new numbness, weakness in extremities PAST MEDICAL/SURGICAL HISTORY Patient Active Problem List Diagnosis Code ??? 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 Diabetes mellitus E11.9 ??? HTN (hypertension) I10 ??? Elevated cholesterol E78.00 ??? IBS (irritable bowel syndrome) K58.9 ??? T2DM (type 2 diabetes mellitus) E11.9 ??? Gastroesophageal reflux disease K21.9 ??? Irritant contact dermatitis L24.9 ??? Dermatitis L30.9 ??? Depression F32.A ??? Sustained VT (ventricular tachycardia) I47.2 ??? Hypertension I10 ??? Hypomagnesemia E83.42 ??? 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 Atrial pacemaker lead displacement T82.120A ??? Typical atrial flutter I48.3 ??? Pain in right wrist M25.531 ??? Atrial fibrillation I48.91 ??? Chronic pain G89.29 ??? Closed fracture of lower end of right radius with routine healing S52.501D ??? Contusion of left knee S80.02XA ??? Coronary atherosclerosis I25.10 ??? Diverticular disease K57.90 ??? Dysphagia R13.10 ??? Magnesium deficiency E61.2 ??? Nephrolithiasis N20.0 ??? Obstructive sleep apnea syndrome G47.33 ??? Rib pain on right side R07.81 CCY 2000 Coronary stents 2006, 2007 Ischemic cardiomyopathy Esophageal stricture GERD MEDICATIONS Outpatient Medications Marked as Taking for the 03/19/21 encounter (Office Visit) with Elsie Cristobal MD Medication Sig Dispense Refill ??? AMIOdarone (Paceron) 200 mg Tablet Take 400 mg by mouth daily. ??? atorvastatin (Lipitor) 20 mg Tablet Take 1 tablet by mouth daily. 90 tablet 3 ??? cyanocobalamin, Vitamin B-12, (Vitamin B-12) 1,000 mcg Tablet Take 1,000 mcg by mouth daily. ??? ferrous sulfate 324 mg (65 mg iron) Tablet, Delayed Release (E.C.) Take 324 mg by mouth daily. ??? KlonoPIN 1 mg Tablet Take by mouth 3 times daily as needed. ??? vilazodone (Viibryd) 40 mg Tablet Take 40 mg by mouth daily. ??? tacrolimus (PROTOPIC) 0.1 % Ointment Apply [...] mg Tablet 150 mg daily. 0 ??? aspirin 81 mg Tablet, Delayed Release (E.C.) Take 81 mg by mouth daily. ??? rivaroxaban (XARELTO) 20 mg Tablet Take 1 tablet by mouth daily. 30 tablet 11 ??? glipiZIDE (GLUCOTROL) 5 mg Tablet Take 5 mg by mouth daily. ??? MAGNESIUM CARBONATE ORAL Take 400 mg [...] for Pain. ??? zolpidem (AMBIEN) 10 mg tablet Take 5 mg by mouth nightly as needed. ??? multivitamin capsule Take 1 capsule by mouth daily. ??? LANCETS MISC by Misc.(Non-Drug; Combo Route) route. ??? metformin (GLUCOPHAGE) 1,000 mg tablet Take 1,000 mg by mouth 2 times daily (with meals). ??? nitroGLYcerin (NITROSTAT) 0.[address] 0.4 mg under the tongue every 5 minutes as needed. Reported on 09/30/2016 ALLERGIES Allergies Allergen Reactions ??? Latex Other reaction(s): trouble breathing/moving ??? 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 Pharynx unremarkable. Neck is supple, no adenopathy, no thyromegaly. Chest is clear. Heart: Regular rate and rhythm. Normal S1, S2, no murmurs. Abdomen: Normal bowel sounds; soft. No obvious hepatosplenomegaly. Extremities: No edema. Fibroscan Results: Median kPa: 11.3 Mean IQR: 19% (goal is <30 %) Number of valid measurements: 15 (at least 10 required) Number of invalid measurements: 3 Predicted fibrosis stage: F3 CAP (dB/m): 400 Estimated steatosis grade: 3 /3 % hepatocytes affected: > 66 % Lab Results Component Value Date ALT 124 (H) 03/19/2021 AST 116 (H) 03/19/2021 ALKPHOS 77 03/19/2021 BILITOT 0.6 03/19/2021 ASSESSMENT/PLAN 70 y.o. male with past history of alcohol use, long standing diabetes, past history of obesity who likely has fatty liver disease from both metabolic issues and from past alcohol injury. He was notedto have an abnormal appearing liver at [facility] 20 years ago and stopped drinking then. Fotutnately, he has treated his metabolic risk factors with weight loss and per report diabetes is under reasonable control. He also stopped alcohol 21 years ago. Liver fibrosis assessment today suggests stage 3 fibrosis, not unexpected given his risk factors. For ongoing management of fatty liver I suggest: -maintenance of weight loss -continue statin -continue liraglutide and metformin which are both associated with better outcomes in fatty liver -continue to abstain from alcohol -follow up one year with fibroscan The rise in liver tests is concerning for possible drug induced liver injury. He has been on amiodorone since September and we often see liver injury after some time on this drug. He is seeing cardiology this week and will explore other options. I think we should if possible decrease the dose and even better find alternative therapy if possible given underlying chronic liver disease and rising transami nases. Time spent with patient: 55 min Time spent reviewing records, documentin min Elsie Cristobal MD Hepatology and Gastroenterology [facility] JAYA Cao V: [phone] Copy: Dewayne Carrington MD [address] [place] [address] / [facility] [phone] documented in this encounter Procedure Notes * Elsie Cristobal MD - 03/19/2021 2:30 PM ESTAssociated Order(s): FIBROSCAN Procedure(s): FIBROSCAN Pre-Procedure Diagnose(s): Abnormal liver function test; Fatty liver [facility] Liver Fibrosis Assessment Report Indication: Fatty liver Performed by: Elsie Cristobal MD Procedure: Vibration Controlled Transient Elastography (VCTE) or Fibroscan [place] Protocol: Patient's identity, procedure and site were [...] with no complications. Fibroscan Results: Median kPa: 11.3 Mean IQR: 19% (goal is <30 %) Number of valid measurements: 15 (at least 10 required) Number of invalid measurements: 3 Predicted fibrosis stage: F3 CAP (dB/m): 400 Estimated steatosis grade: 3 /3 % hepatocytes affected: > 66 % Interpretation: Based on this Fibroscan result, history, clinical examination and review of laboratory and radiological data, this patient likely has stage 3 liver fibrosis. documented in this encounter Plan of Treatment Upcoming Encounters Date Type Department Care Team (Late st Contact Info) Description 12/18/2023 10:00 AM EDT Hospital Encounter [place] [phone] Arrived documented as of this encounter Procedures Procedure Name Priority Date/Time Associated Diagnosis Comments A1AT GENOTYPE Routine 03/19/2021 3:50 PM EST Abnormal liver function test HC A1AT (ALPHA-1 ANTITRYPSIN) Routine 03/19/2021 3:50 PM EST Abnormal liver function test HEMOGRAM Routine 03/19/2021 3:50 PM EST Abnormal liver function test DIFFERENTIAL, AUTOMATED Routine 03/19/2021 3:50 PM EST Abnormal liver function test HC HEPATITIS C ANTIBODY Routine 03/19/2021 3:50 PM EST Abnormal liver function test [id number] Routine 03/19/2021 3 :50 PM EST Abnormal liver function test HC PCH SMOOTH MUSCLE AB, SERUM Routine 03/19/2021 3:50 PM EST Abnormal liver function test HC CBC,PLT & AUTO DIFF Routine 3:50 PM EST Abnormal liver function test HC PCH ANATITRE (ANDPATTERN) Routine 03/19/2021 3:50 PM EST Abnormal liver function test COMPREHENSIVE METABOLIC PANEL (NON-FASTING) Routine 03/19/2021 3:50 PM EST Abnormal liver function test [id number] Routine 03/19/2021 2:30 PM EST Abnormal liver function test Fatty liver documented in this encounter Results * (ABNORMAL) Differential, Automated (03/19/2021 3:50 PM EST) Neutrophils % 61.4 % [facility] Neutr Abs (ANC) 4.80 1.70 - 6.10 x10(3)/ L [facility] Lymphocytes % 25.7 % [facility] Lymphocytes Abs 2.0 0.9 - 3.2 x10(3)/ L [facility] Monocytes % 6.3 % [facility] Monocyte Abs 0.5 0.3 - 0.9 x10(3)/[facility] Eosinophils % 5.4 % [facility] Eosinophils Abs 0.4 0.0 - 0.4 x10(3)/[facility] Basophils % 0.6 % [facility] Basophils Abs 0.0 0.0 - 0.1 x10(3)/[facility] Immature Gran % 0.60 % [facility] Comment: Immature granulocytes(IG's)percentage and absolute count will include metamyelocytes, myelocytes, and promyelocytes. Blood smears from CBCs yielding IG's will be scanned manually for concordance. If this scan disagrees with the automated IG or if promyelocytes are noted, a manual differential will be performed. Elyssa Gran Abs 0.05(H) 0.00 - 0.04 x10(3)/mc L [facility] Blood 03/19/2021 3:50 PM EST 03/19/2021 4:21 PM EST Narrative Resulting Agency Comment Spec In Lab Elsie Cristobal MD HEMATOLOGY ORDERABLE S [facility] [place] [address] * (ABNORMAL) Hemogram (03/19/2021 3:50 PM EST) WBC 7.8 4.0 - 9.5 x10(3)/[facility] RBC 4.89 4.58 - 5.54 x10(6)/[facility] Hemoglobin 15.1 13.7 - 16.5 g/dL [facility] Hematocrit 44.6 40.5 - 48.5 % [facility] MCV 91.2 82.9 - 93.1 fL [facility] MCH 30.9 27.5 - 32.1 pg [facility] MCHC 33.9 32.0 - 35.7 g/dL [facility] Platelets 228 145 - 357 x10(3)/[facility] RDWSD 49.3(H) 36.0 - 45.0 [facility] RDWCV 14.7(H) 11.4 - 13.8 % [facility] MPV 9.0 7.6 - 12.9 [facility] nRBC % Auto 0.0 % [facility] nRBC Abs Auto 0.000 0.000 - 0.000 x10(3)/[facility] Blood 03/19/2021 3:50 PM EST 03/19/2021 4:21 PM EST Narrative Resulting Agency Comment Spec In Lab Elsie Cristobal MD HEMATOLOGY ORDERABLE S [facility] [place] [address] * A1AT Genotype (03/19/2021 3:50 PM EST) Pathologist [facility] A1AT Genotype A1AT (SERPINA1) GENOTYPING RESULTS: S ALLELE: NOT DETECTED Z ALLELE: NOT DETECTED INTERPRETATION: The absence of both the S and Z alleles in this patient along with a separate test showing normal levels of A1AT protein (148 mg/dL) in this patient? s serum suggest this patient does not have an A1AT deficiency. Although the S and Z alleles were not detected by this test, the presence of other less common A1AT variants cannot be excluded. ??These results should be interpreted based on the complete clinical presentation which may warrant additional testing and/or a genetic consultation. METHOD: Two regions of interest in the serpin peptidase inhibitor, clade A (alpha-1 antiproteinase, antitrypsin), member 1 gene (SERPINA1), commonly alpha-1 anti-trypsin or A1AT) that are known to contain variant alleles resulting in the ? S? phenotype ([id number]:c.863 A>T; [id number]) and the ? Z? phenotype (c. 1096G>A; [id number]) are amplified and genotyped by two separate PCR assays each containing two primers for amplification and two probes for detection the normal and variant alleles. ??Genomic DNA used in this testing was isolated from peripheral blood. LIMITATIONS AND DISCLAIMERS: ??Although unlikely, rare variants or polymorphisms (known or unknown) have the potential to interfere with the performance of this test, producing false negative or false positive results. ??When genotyping results are not consistent with other clinical observations or test results, additional testing should be considered. This test was developed and its performance characteristics determined by the [facility] at [facility] It has not been cleared or approved by the FDA. The laboratory is regulated under CLIA as qualified to perform high-complexity testing. This test is used for clinical purposes. It should not be regarded as investigational or for research. [facility] Comment: [VERIFIED DATE]03.27.21 Verified By:Nabila Ph.D., [facility], [facility] A Clinical Arc Welder Apprentice/Digital Solution Architect (Electronic Signature) Blood 03/19/2021 3:50 PM EST 03/20/2021 7:43 AM EST Narrative Resulting Agency Comment Spec In Lab Elsie Cristobal MD CHEMISTRY ORDERABLES [facility] [place] [address] * A1AT Serum Concentration (03/19/2021 3:50 PM EST) A1AT 148 90 - 200 mg/dL [facility] Blood 03/19/2021 3:50 PM EST 03/19/2021 4:21 PM EST Narrative Resulting Agency Comment Spec In Lab Elsie Cristobal MD CHEMISTRY ORDERABLES Performing Organization Address [facility] de Phone Number [facility] [place] [address] * Smooth Muscle Antibody (03/19/2021 3:50 PM EST) Sm Muscle Ab Negative Negative [facility] Comment: Negative: No further testing will be performed ADDITIONAL INFORMATION This test was developed and its performance characteristics determined by [facility] in a manner consistent with CLIA requirements. This test has not been cleared or approved by the U.S. Food and Drug Administration. Test Performed by: [facility] [address] [place] [address] Operations Management Trainee: Iggy Garcia M.D. Ph.D.; CLIA# [id number] Blood 03/19/2021 3:50 PM EST 03/20/2021 9:19 AM EST Narrative Resulting Agency Comment Spec In Lab Elsie Cristobal MD IMMUNOLOGY ORDERABLE S Performing Organization Address [facility] de Phone Number [facility] [place] [place] [address] * (ABNORMAL) SONAL (03/19/2021 3:50 PM EST) Antinuclear Ab Test ?Result ? Flag ??Unit ??RefValue Antinuclear Ab, HEp-2 Substrate, ?Positive 1:320 ??@ ?<1:80 (Negative) ??S ? ADDITIONAL INFORMATION --------- ?Method: Immunofluorescence using HEp-2 cellular substrate. ??SONAL Titer: ?1:320 ??SONAL Pattern: ?Homogeneous ?Test Performed by: ?[facility] ?[address] [place] [address] ?Operations Management Trainee: Iggy Garcia M.D. Ph.D.; CLIA# [id number] (A) [facility] Blood 03/19/2021 3:50 PM EST 03/20/2021 9:19 AM EST Narrative Resulting Agency Comment Spec In Lab Elsie Cristobal MD IMMUNOLOGY ORDERABLE S Performing Organization Address City/State/[facility] Co de Phone Number [facility] [place] [address] * (ABNORMAL) Comprehensive metabolic panel (non-fasting) (03/19/2021 3:50 PM EST) Glucose Lvl 143 65 - 199 mg/dL [facility] Comment:Diabetes: >=200 mg/d L plus symptoms BUN 20 10 - 20 mg/dL [facility] Creatinine 0.99 0.80 - 1.50 mg/dL [facility] Sodium 141 135 - 145 mmol/L [facility] Potassium 4.6 3.5 - 5.0 mmol/L [facility] Comment: Please note: ??Patients with WBC >100,000 may have falsely elevated Potassium levels. ??For accurate Potassium quantification in these patients send serum separator tube (gold top) for subsequent determinations. ??Contact the Clinical Chemistry Laboratory if there are any questions. Chloride 102 98 - 107 mmol/L [facility] CO2 25 22 - 31 mmol/L [facility] Anion Gap 14 5 - 15 mmol/L [facility] Calcium 9.9 8.5 - 10.5 mg/dL [facility] Total Protein 7.6 6.1 - 8.0 g/dL [facility] Albumin 4.7 3.2 - 5.2 g/dL [facility] AST 116(H) 0 - 39 unit/L [facility] ALT 124(H) 0 - 55 unit/L [facility] Alk Phos 77 40 - 130 unit/L [facility] Total Bilirubin 0.6 0.2 - 1.3 mg/dL [facility] Estimated GFR 76 >=60 mL/min/1. 73 m?? [facility] Comment: This patient? s estimated glomerular [...] In Lab Elsie Cristobal MD CHEMISTRY ORDERABLES [facility] [place] [address] * Hepatitis C Antibody (03/19/2021 3:50 PM EST) Hepatitis C Ab Negative Negative [facility] Blood 03/19/2021 3:50 PM EST 03/19/2021 4:21 PM EST Narrative Resulting Agency Comment Spec In Lab Elsie Cristobal MD IMMUNOLOGY ORDERABLE S [facility] [place] [place] [address] * [id number] (03/19/2021 2:30 PM EST) Narrative Elsie Cristobal MD - 03/19/2021 2:30 PM EST Elsie Cristobal MD ? 03/19/2021 ??8:41 PM [facility] Liver Fibrosis Assessment Report Indication: ??Fatty liver Performed by: ??Elsie Cristobal MD Procedure: Vibration Controlled Transient Elastography (VCTE) or Fibroscan [place] Protocol: Patient's identity, procedure and site were [...] with no complications. Fibroscan Results: Median kPa: 11.3 Mean IQR: 19% (goal is <30 %) Number of valid measurements: 15 (at least 10 required) Number of invalid measurements: 3 Predicted fibrosis stage: F3 CAP (dB/m): 400 Estimated steatosis grade: 3 /3 % hepatocytes affected: > 66 % Interpretation: Based on this Fibroscan result, history, clinical examination and review of laboratory and radiological data, this patient likely has stage 3 liver fibrosis. Elsie Cristobal MD PROCEDURE/MINOR SURG ICAL ORDERABLES documented in this encounter Visit Diagnoses Diagnosis Abnormal liver function test Other abnormal blood chemistry Fatty liver Other chronic nonalcoholic liver disease documented in this encounter Care Teams Painting Manager Relationship Specialty Start Date End Date Dewayne Carrington MD [address] [address] PCP - General 09/02/16 documented as of this encounter
--- OUTSIDE RECORDS SUMMARY | 2023-11-03 01:21 | XMS_ITS | Encounter Summary ---
Author Organization [facility] Address [facility] [place] [address] Care Team Providers Care Convention Manager Name Role Phone Dewayne Carrington MD Primary Care Provider [phone] Encounter Details Date Type Department Care Team (Latest Contact Info) Description 09/26/2021 - 09/26/2021 11:59 PM EDT Hospital Encounter Non-Invasive Cardiology Lab [facility] [place] [address] Irena Daly MD [facility] [place] [address] V-tach Discharge Disposition: Home Social History Tobacco [...] AM EDT Hospital Encounter Non-[place] [address] Arrived documented as of this encounter Procedures Procedure Name Priority Date/Time Associated Diagnosis Comments ICD INTERROGATION 3 MONTH Routine 09/27/2021 2:29 PM EDT V-tach documented in this encounter Results * ICD INTERROGATION 3 MONTH (09/27/2021 2:29 PM EDT) Anatomical Region Laterality Modality Other Narrative 10/02/2021 3:16 PM EDT Outpatient remote interrogation report: See full report as a linked pdf document Date of transmission: 09/26/21 Device relations coordinator: [facility] [place] type: DC ICD Presenting rhythm: asvs AP 9% STEP DOWN SPECIALIST 0% Battery: 3.5 years Episodes: None Stable lead trends. Activity 0.5 hr/day Irena Daly MD 10/02/2021 3:16 PM Irena Daly MD IMPLANTABLE CARDIAC DEVICE documented in this encounter Visit Diagnoses Diagnosis V-tach Paroxysmal ventricular tachycardia documented in this encounter Care Teams Convention Manager Relationship Specialty Start Date End Date Dewayne Carrington MD [facility] [place] [address] PCP - General 09/02/16 documented as of this encounter
--- OUTSIDE RECORDS SUMMARY | 2023-11-03 01:21 | XMS_ITS | Encounter Summary ---
Author Organization [facility] [place] [address] Care Team Providers Care Monitoring Engineer Name Role Phone Dewayne Carrington MD Primary Care Provider [phone] Reason for Visit * Reason Comments Medication Refill Encounter Details Date Type Department Care Team (Late st Contact Info) Description 12/09/2021 Refill Cardiology at [address] [phone] Fantasma Matos MD [facility] [place] [address] Medication Refill Social History Tobacco Use Types Packs/Day Years [...] AM EDT Hospital Encounter Non-Invasive [place] [phone] Arrived documented as of this encounter Visit Diagnoses Not on filedocumented in this encounter Care Teams Monitoring Engineer Relationship Specialty Start Date End Date Dewayne Carrington MD [address] [place] [address] [place] [address] PCP - General 09/02/16 documented as of this encounter
--- OUTSIDE RECORDS SUMMARY | 2023-11-03 01:21 | XMS_ITS | Encounter Summary ---
[place] [address] Care Team Providers Care Dock Grader Name Role Phone Dewayne Carrington MD Primary Care Provider [phone] Encounter Details Date Type Department Care Team (Late st Contact Info) Description 12/26/2021 Orders Only Cardiology at [address] [address] Social History Tobacco Use Types Packs/Day Years [...] AM EDT Hospital Encounter [place] [address] Arrived documented as of this encounter Procedures Procedure Name Priority Date/Time Associated Diagnosis Comments CARDIAC DEVICE CHECK - REMOTE SCHEDULED Routine 12/26/2021 12:41 AM EDT documented in this encounter Results * Cardiac device check - Remote Scheduled (12/26/2021 12:41 AM EDT) Date Time Interrogation Session IDCO Type Interrogation Session Remote Scheduled IDCO Clinic Name [facility] IDCO Battery Date Time of Measurements [...] Capacitor Charge Type Shock IDCO Episode Identifier [id number] IDCO Episode Date Time IDCO Episode Type Category Periodic EGM IDCO Episode Vendor Type Category APMRT IDCO Episode Detection And Therapy Details Presenting EGM IDCO Episode Identifier [id number] IDCO Episode Date Time IDCO Episode Type Category Other IDCO Episode Vendor Type Category XANDER IDCO Episode Detection Interval Ventricular 1,034 ms IDCO Episode Duration 46 s IDCO Episode Detection And Therapy Details IDCO Episode Identifier [id number] IDCO Episode Date Time IDCO Episode Type Category Other IDCO Episode Vendor Type Category XANDER IDCO Episode Detection Interval Ventricular 1,034 ms IDCO Episode Duration 50 s IDCO Episode Detection And Therapy Details IDCO Episode Identifier [id number] IDCO Episode Date Time IDCO Episode Type Category Other IDCO Episode Vendor Type Category XANDER IDCO Episode Detection Interval Ventricular 822 ms IDCO Episode Duration 50 s IDCO Episode Detection And Therapy Details IDCO Episode Identifier [id number] IDCO Episode Date Time IDCO Episode Type Category Other IDCO Episode Vendor Type Category XANDER IDCO Episode Detection Interval Ventricular 938 ms IDCO Episode Duration 56 s IDCO Episode Detection And Therapy Details IDCO Episode Identifier [id number] IDCO Episode Date Time IDCO Episode Type Category Other IDCO Episode Vendor Type Category XANDER IDCO Episode Detection Interval Ventricular 750 ms IDCO Episode Duration 43 s IDCO Episode Detection And Therapy Details IDCO Episode Identifier [id number] IDCO Episode Date Time IDCO Episode Type Category Other IDCO Episode Vendor Type Category XANDER IDCO Episode Detection Interval Ventricular 822 ms IDCO Episode Duration 46 s IDCO Episode Detection And Therapy Details [facility] IDCO Episode Identifier [id number] IDCO Episode Date Time IDCO Episode Type Category Other IDCO Episode Vendor Type Category XANDER IDCO Episode Detection Interval Ventricular 923 ms IDCO Episode Duration 52 s IDCO Episode Detection [facility] Therapy [facility] Identifier [id number] IDCO Episode Date Time IDCO Episode Type Category Other IDCO Episode Vendor Type Category XANDER IDCO Episode Detection Interval Ventricular 923 ms IDCO Episode Duration 53 s IDCO Episode Detection And Therapy Details [facility] IDCO Episode Identifier [id number] IDCO Episode Date Time IDCO Episode Type Category Other IDCO Episode Vendor Type Category XANDER IDCO Episode Detection Interval Ventricular 923 ms IDCO Episode Duration 55 s IDCO Episode Detection And Therapy Details [facility] IDCO Episode Identifier [id number] IDCO Episode Date Time IDCO Episode Type Category Other IDCO Episode Vendor Type Category XANDER IDCO Episode Detection Interval Ventricular 923 ms IDCO Episode Duration 54 s IDCO Episode Detection And Therapy Details [facility] IDCO Episode Identifier [id number] IDCO Episode Date Time IDCO Episode Type Category VT IDCO Episode Vendor Type Category NSVT IDCO Episode Type Induced Flag NO IDCO Episode Detection Interval Ventricular 500 ms IDCO Episode Duration 14 s IDCO Episode Detection And Therapy Details [facility] IDCO Episode Statistic Type Category VF IDCO Episode Statistic Vendor Type Category VF IDCO Episode Statistic Recent Count 0 IDCO Episode Statistic Recent Date Time Start 20210807 IDCO Episode Statistic Recent Date Time End 20211226 IDCO Episode Statistic Type Category VT IDCO Episode Statistic Vendor Type Category VT IDCO Episode Statistic Recent Count 0 IDCO Episode Statistic Recent Date Time Start 20210807 IDCO Episode Statistic Recent Date Time End 20211226 IDCO Episode Statistic Type Category VT IDCO Episode Statistic Vendor Type Category VT-1 IDCO Episode Statistic Recent Count 0 IDCO Episode Statistic Recent Date Time Start 20210807 IDCO Episode Statistic Recent Date Time End 20211226 IDCO Episode Statistic Type Category Monitor IDCO Episode Statistic Vendor Type Category IDCO Episode Statistic Recent Count 0 IDCO Episode Statistic Recent Date Time Start 20210807 IDCO Episode Statistic Recent Date Time End 20211226 IDCO Episode Statistic Type Category Other IDCO Episode Statistic Vendor Type Category IDCO Episode Statistic Recent Count 0 IDCO Episode Statistic Recent Date Time Start 20210807 IDCO Episode Statistic Recent Date Time End 20211226 IDCO Episode Statistic Type Category VT IDCO Episode Statistic Vendor Type Category NSVT IDCO Episode Statistic Recent Count 1 IDCO Episode Statistic Recent Date Time Start 20210807 IDCO Episode Statistic Recent Date Time End 20211226 IDCO Episode Statistic Type Category AT/AF IDCO Episode Statistic Vendor Type Category ATR IDCO Episode Statistic Recent Count 0 IDCO Episode Statistic Recent Date Time Start 20210807 IDCO Episode Statistic Recent Date Time End 20211226 IDCO Albaro Setting AT Mode Switch Mode [...] E162 IDCO Implantable Pulse Generator Serial Number [id number] IDCO Implantable Pulse Generator Thread Twister [place] [employer] IDCO Implantable Pulse Generator Implant Date 20140110 IDCO Implantable Lead Model 4136 IDCO Implantable Lead Serial Number [id number] IDCO Implantable Lead Thread Twister Guidant IDCO Implantable Lead Implant Date 20130421 IDCO Implantable Lead Polarity Type Bipolar Lead IDCO Implantable Lead Location Right Atrium IDCO Implantable Lead Model 0292 IDCO Implantable Lead Serial Number [id number] IDCO Implantable Lead Thread Twister [place] [employer] IDCO Implantable Lead Implant Date IDCO Implantable Lead Location Right Ventricle IDCO Lead Channel Measurements Date and Time Start 20210807 IDCO Lead Channel Measurements Date and Time End 20211225 IDCO Lead Channel Sensing Intrinsic Amplitude Mean 2.2 mV IDCO Lead Channel Sensing Polarity Bipolar IDCO Lead Channel Pacing Threshold Amplitude 0.7 V IDCO Lead Channel Pacing Threshold Pulse Width 0.5 ms IDCO Lead Channel Pacing Threshold Measurement Method Defect Repairer Glassware Manual IDCO Lead Channel Pacing Threshold Polarity Bipolar IDCO Lead Channel Impedance Value 729 ohms IDCO Lead Channel Impedance Polarity Bipolar IDCO Lead Channel Measurements Date and Time Start 20210807 IDCO Lead Channel Measurements Date and Time End 20211225 IDCO Lead Channel Sensing Intrinsic Amplitude Mean 10.2 mV IDCO Lead Channel Sensing Polarity Bipolar IDCO Lead Channel Pacing Threshold Amplitude 0.8 V IDCO Lead Channel Pacing Threshold Pulse Width 0.5 ms IDCO Lead Channel Pacing Threshold Measurement Method Defect Repairer Glassware Manual IDCO Lead Channel Pacing Threshold Polarity Bipolar IDCO Lead Channel Impedance Value 580 ohms IDCO Lead Channel Impedance Polarity Bipolar IDCO Lead High Voltage Channel Date Time 20211225 IDCO Lead High Voltage Channel Impedance 78 ohms IDCO Lead High Voltage Channel Measurement Type Low Voltage Pulse IDCO Statistic Date Time Start 20210807 IDCO Statistic Date Time End 20211226 IDCO Albaro Statistic Date Time Start 20210807 IDCO Albaro Statistic Date Time End 20211226 IDCO Albaro Statistic RA Percent Paced 5 % IDCO Albaro Statistic RV Percent Paced 0 % IDCO Therapy Statistic Recent Date Time Start 20210807 IDCO Therapy Statistic Recent Date Time End 20211226 IDCO Therapy Statistic Recent Shocks Delivered 0 IDCO Therapy Statistic Total Date Time Start 20140110 IDCO Therapy Statistic Total Date Time End 20211226 IDCO Therapy Statistic Total Shocks Delivered 2 IDCO Therapy Statistic Recent Shocks Aborted 0 IDCO Therapy Statistic Total Shocks Aborted 0 IDCO Therapy Statistic Recent ATP Delivered 0 IDCO Therapy Statistic Total ATP Delivered 12 IDCO Anatomical Region Laterality Modality Other 12/26/2021 12:4 1 AM EDT Physician Cardiology IMPLANTABLE CARD IAC DEVICE documented in this encounter Visit Diagnoses Not on filedocumented in this encounter Care Teams Dock Grader Relationship Specialty Start Date End Date Dewayne Carrington MD [address] [place] [address] PCP - General 09/02/16 documented as of this encounter
--- OUTSIDE RECORDS SUMMARY | 2023-11-03 01:22 | XMS_ITS | Encounter Summary ---
Author Organization [facility] [place] [address] Care Team Providers Care Can Operator Name Role Phone Dewayne Carrington MD Primary Care Provider [phone] Encounter Details Date Type Department Care Team ([facility] st Contact Info) Description 11/27/2020 [place] [phone] Daniela Torres MD [facility] [place] [address] Social History Tobacco Use Types Packs/Day Years [...] encounter Miscellaneous Notes * Telephone Encounter - Daniela Torres MD - 11/27/2020 11:13 PM EDT TELEPHONE TRIAGE NOTE Patient Name: Marquez Hendrix Patient Initial contact date: 11/27/2020 Initial contact time: 11:13 PM Referring provider: Dr. Fitzpatrick Patient location: [facility] Past Medical History: HTN CAD: ?? Heart catheterization in [facility] in 2007 with placement of a stent in an unspecified vessel ?? Repeat heart catheterization in 2008 with placement of stents to both the LAD and circumflex ?? Followup heart catheterization in 2008 showing stable results in both vessels ?? Recurrent chest discomfort in a somewhat atypical pattern beginning fall ?? Nuclear stress test at [facility] in [place], [place] May 02, 2013 during which he developed left shoulder and arm discomfort during submaximal exercise on the treadmill and after which he was converted to a pharmacologic test; nuclear imaging showed ejection fraction of 45% with a partially reversible inferior defect ?? Cath [facility] 05/13/2013: normal left main, mild diffuse disease throughout the LAD with an 80% mid stenosis representing a restenosis lesion, mild diffuse disease in the proximal obtuse marginal branch, and mild diffuse disease throughout the right coronary artery; status post 3.0 X 12 mm JON to 80%mid-LAD lesion (in-stent restenosis) ?? Heart catheterization [facility] January 06, 2014 showing normal left main, hazy 50% mid LAD stenosis, mild diffuse disease throughout the circumflex, and moderate diffuse disease in the proximal RCA with a totally occluded distal RCA with brisk flow via bridging collaterals; fractional flow reserveon the LAD 0.85 ?? 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 He typically does this walk every night without issue. On arrival to [facility], he was found to be in stable VT. He ultimately became hypotensive to the 90s and was cardioverted there. His VT was a rate of 150bpm (EKG in our system). Initial troponin is negative and he denies chest pain and other symptoms with the exception of sudden onset this evening. I reviewed his ICD settings in our chart here at [facility], and he has two VT detection zones. The lowest is set to 155bpm, and his rate was below this so his ICD did not fire. Magnesium is a little low at 1.6; he has HERMES and slightly elevated K. Pertinent Diagnostic Findings: Vitals: HR 80, 97% RA, 123/60 EKG: mmVT at a rate of 150bpm Labs: WBC 11.6, Hb 15.1, Hct 45, Plt 211, Trop negative, Mg 1.6, Na 137, K 5.1, Cl 104, Cr 1.4 Imaging: None available OSH Interventions: Amiodarone Plan: -VT at a rate lower than detection zone. Also with HERMES and mild electrolyte derrangements, possibly2/2 hypotension during VT. -Agree with amiodarone load. -Patient would also benefit from ACS rule-out and potentially even additional ischemic eval to ensure this did not contribute to VT. Initial troponin is negative. EKG is nonischemic. -Will consider re-programming device to lower VT detection zone, though do not want to promote inappropriate firing if too low. -We do not currently have beds and are not listing- recommend calling again tomorrow morning. May benefit from EP input at that time. Daniela Torres, PGY6 Cardiovascular Disease Fellow documented in this encounter Plan of Treatment Upcoming Encounters Date Type Department Care Team (Late st Contact Info) Description 12/18/2023 10:00 AM EDT Hospital Encounter Non-Invasive [place] [address] Arrived documented as of this encounter Visit Diagnoses Not on filedocumented in this encounter Care Teams Can Operator Relationship Specialty Start Date End Date Dewayne [place] [phone] PCP - General 09/02/16 documented as of this encounter
--- OUTSIDE RECORDS SUMMARY | 2023-11-03 01:22 | XMS_ITS | Encounter Summary ---
[place] [address] Care Team Providers Care Office Employee Name Role Phone Dewayne Carrington MD Primary Care Provider [phone] Encounter Details Date Type Department Care Team (Late st Contact Info) Description 12/01/2020 Orders Only Cardiology at [address] [address] Social History Tobacco Use Types Packs/Day Years [...] AM EDT Hospital Encounter [place] [address] Arrived documented as of this encounter Procedures Procedure Name Priority Date/Time Associated Diagnosis Comments CARDIAC DEVICE CHECK - REMOTE DEVICE INITIATED Routine 12/01/2020 12:42 AM EDT documented in this encounter Results * Cardiac device check - Remote Device Initiated (12/01/2020 12:42 AM EDT) Date Time Interrogation Session IDCO Type Interrogation Session Remote Device Initiated IDCO Clinic Name [facility] IDCO Battery Date Time of Measurements IDCO Battery Status Beginning of Service IDCO Battery Remaining Longevity 48 mo IDCO Battery Remaining Percentage 56 % IDCO Capacitor Last Charge Date Time IDCO Capacitor Charge Time 11.3 s IDCO Capacitor Charge Type Reformation IDCO Capacitor Last Charge Date Time [id number] IDCO Capacitor Charge Time 3.8 s IDCO Capacitor Charge Energy 21 J IDCO Capacitor Charge Type Shock IDCO Episode Identifier [id number] IDCO Episode Date Time IDCO Episode Type Category Periodic EGM IDCO Episode Vendor Type Category APMRT IDCO Episode Detection And Therapy Details Presenting EGM IDCO Episode Identifier [id number] IDCO Episode Date Time IDCO Episode Type Category VT IDCO Episode Vendor Type Category NSVT IDCO Episode Type Induced Flag NO IDCO Episode Detection Interval Ventricular 420 ms IDCO Episode Duration 5 s IDCO Episode Detection And Therapy Details NonSustV IDCO Episode Identifier [id number] IDCO Episode Date Time IDCO Episode Type Category VT IDCO Episode Vendor Type Category NSVT IDCO Episode Type Induced Flag NO IDCO Episode Detection Interval Ventricular 382 ms IDCO Episode Duration 13 s IDCO Episode Detection And Therapy Details NonSustV IDCO Episode Identifier [id number] IDCO Episode Date Time IDCO Episode Type Category VT IDCO Episode Vendor Type Category NSVT IDCO Episode Type Induced Flag NO IDCO Episode Detection Interval Ventricular 392 ms IDCO Episode Duration 13 s IDCO Episode Detection And Therapy Details NonSustV IDCO Episode Identifier V IDCO Episode Date Time IDCO Episode Type Category VT IDCO Episode Vendor Type Category NSVT IDCO Episode Type Induced Flag NO IDCO Episode Detection Interval Ventricular 392 ms IDCO Episode Duration 16 s IDCO Episode Detection And Therapy Details NonSustV IDCO Episode Identifier [id number] IDCO Episode Date Time IDCO Episode Type Category VT IDCO Episode Vendor Type Category NSVT IDCO Episode Type Induced Flag NO IDCO Episode Detection Interval Ventricular 366 ms IDCO Episode Duration 15 s IDCO Episode Detection And Therapy Details NonSustV IDCO Episode Identifier [id number] IDCO Episode Date Time IDCO Episode Type Category VT IDCO Episode Vendor Type Category NSVT IDCO Episode Type Induced Flag NO IDCO Episode Detection Interval Ventricular 377 ms IDCO Episode Duration 34 s IDCO Episode Detection And Therapy Details NonSustV IDCO Episode Identifier V-[id number] IDCO Episode Date Time IDCO Episode Type Category VT IDCO Episode Vendor Type Category NSVT IDCO Episode Type Induced Flag NO IDCO Episode Detection Interval Ventricular 444 ms IDCO Episode Duration 7 s IDCO Episode Detection And Therapy Details NonSustV IDCO Episode Identifier [id number] IDCO Episode Date Time IDCO Episode Type Category VT IDCO Episode Vendor Type Category NSVT IDCO Episode Type Induced Flag NO IDCO Episode Detection Interval Ventricular 403 ms IDCO Episode Duration 23 s IDCO Episode Detection And Therapy Details NonSustV IDCO Episode Identifier [id number] IDCO Episode Date Time IDCO Episode Type Category VT IDCO Episode Vendor Type Category NSVT IDCO Episode Type Induced Flag NO IDCO Episode Detection Interval Ventricular 392 ms IDCO Episode Duration 32 s IDCO Episode Detection And Therapy Details NonSustV IDCO Episode Identifier IDCO Episode Date Time IDCO Episode Type Category VT IDCO Episode Vendor Type Category NSVT IDCO Episode Type Induced Flag NO IDCO Episode Detection Interval Ventricular 392 ms IDCO Episode Duration 6 s IDCO Episode Detection And Therapy Details NonSustV IDCO Episode Identifier [id number] IDCO Episode Date Time IDCO Episode Type Category VT IDCO Episode Vendor Type Category VT-1 IDCO Episode Type Induced Flag NO IDCO Episode Detection Interval Ventricular 403 ms IDCO Episode Duration 120 s IDCO Episode Detection And Therapy Details VT-1 No Therapy IDCO Episode Identifier -[id number] IDCO Episode Date Time IDCO Episode Type Category VT IDCO Episode Vendor Type Category VT-1 IDCO Episode Type Induced Flag NO IDCO Episode Detection Interval Ventricular 364 ms IDCO Episode Duration 44 s IDCO Episode Detection And Therapy Details VT-1 ATPx1 IDCO Episode Identifier IDCO Episode Date Time IDCO Episode Type Category VT IDCO Episode Vendor Type Category VT-1 IDCO Episode Type Induced Flag NO IDCO Episode Detection Interval Ventricular 370 ms IDCO Episode Duration 45 s IDCO Episode Detection And Therapy Details VT-1 ATPx1 IDCO Episode Statistic Type Category VF IDCO Episode Statistic Vendor Type Category VF IDCO Episode Statistic Recent Count 0 IDCO Episode Statistic Recent Date Time Start 20201023 IDCO Episode Statistic Recent Date Time End 20201201 IDCO Episode Statistic Type Category VT IDCO Episode Statistic Vendor Type Category VT IDCO Episode Statistic Recent Count 0 IDCO Episode Statistic Recent Date Time Start 20201023 IDCO Episode Statistic Recent Date Time End 20201201 IDCO Episode Statistic Type Category VT IDCO Episode Statistic Vendor Type Category VT-1 IDCO Episode Statistic Recent Count 2 IDCO Episode Statistic Recent Date Time Start 20201023 IDCO Episode Statistic Recent Date Time End 20201201 IDCO Episode Statistic Type Category Monitor IDCO Episode Statistic Vendor Type Category IDCO Episode Statistic Recent Count 0 IDCO Episode Statistic Recent Date Time Start 20201023 IDCO Episode Statistic Recent Date Time End 20201201 IDCO Episode Statistic Type Category Other IDCO Episode Statistic Vendor Type Category IDCO Episode Statistic Recent Count 1 IDCO Episode Statistic Recent Date Time Start 20201023 IDCO Episode Statistic Recent Date Time End 20201201 IDCO Episode Statistic Type Category VT IDCO Episode Statistic Vendor Type Category NSVT IDCO Episode Statistic Recent Count 124 IDCO Episode Statistic Recent Date Time Start 20201023 IDCO Episode Statistic Recent Date Time End 20201201 IDCO Episode Statistic Type Category AT/AF IDCO Episode Statistic Vendor Type Category ATR IDCO Episode Statistic Recent Count 1 IDCO Episode Statistic Recent Date Time Start 20201023 IDCO Episode Statistic Recent Date Time End 20201201 IDCO Albaro Setting AT Mode Switch Mode [...] E162 IDCO Implantable Pulse Generator Serial Number [id number] IDCO Implantable Pulse Generator Regional [employer] IDCO Implantable Pulse Generator Implant Date 20140110 IDCO Implantable Lead Model 4136 IDCO Implantable Lead Serial Number [id number] IDCO Implantable Lead Regional Sales Leader Guidant IDCO Implantable Lead Implant Date 20130421 IDCO Implantable Lead Polarity Type Bipolar Lead IDCO Implantable Lead Location Right Atrium IDCO Implantable Lead Model 0292 IDCO Implantable Lead Serial Number [id number] IDCO Implantable Lead Regional [employer] IDCO Implantable Lead Implant Date IDCO Implantable Lead Location Right Ventricle IDCO Lead Channel Measurements Date and Time Start 20201128 IDCO Lead Channel Measurements Date and Time End 20201130 IDCO Lead Channel Sensing Intrinsic Amplitude Mean 3.8 mV IDCO Lead Channel Sensing Polarity Bipolar IDCO Lead Channel Pacing Threshold Amplitude 0.9 V IDCO Lead Channel Pacing Threshold Pulse Width 0.5 ms IDCO Lead Channel Pacing Threshold Measurement Method Foreclosure Clerk Manual IDCO Lead Channel Pacing Threshold Polarity Bipolar IDCO Lead Channel Impedance Value 701 ohms IDCO Lead Channel Impedance Polarity Bipolar IDCO Lead Channel Measurements Date and Time Start 20201128 IDCO Lead Channel Measurements Date and Time End 20201130 IDCO Lead Channel Sensing Intrinsic Amplitude Mean 11.2 mV IDCO Lead Channel Sensing Polarity Bipolar IDCO Lead Channel Pacing Threshold Amplitude 0.7 V IDCO Lead Channel Pacing Threshold Pulse Width 0.5 ms IDCO Lead Channel Pacing Threshold Measurement Method Foreclosure Clerk Manual IDCO Lead Channel Pacing Threshold Polarity Bipolar IDCO Lead Channel Impedance Value 613 ohms IDCO Lead Channel Impedance Polarity Bipolar IDCO Lead High Voltage Channel Date Time 20201130 IDCO Lead High Voltage Channel Impedance 90 ohms IDCO Lead High Voltage Channel Measurement Type Low Voltage Pulse IDCO Statistic Date Time Start 20201023 IDCO Statistic Date Time End 20201201 IDCO Albaor Statistic Date Time Start 20201023 IDCO Albaro Statistic Date Time End 20201201 IDCO Albaro Statistic RA Percent Paced 3 % IDCO Albaro Statistic RV Percent Paced 1 % IDCO Therapy Statistic Recent Date Time Start 20201023 IDCO Therapy Statistic Recent Date Time End 20201201 IDCO Therapy Statistic Recent Shocks Delivered 0 IDCO Therapy Statistic Total Date Time Start 20140110 IDCO Therapy Statistic Total Date Time End 20201201 IDCO Therapy Statistic Total Shocks Delivered 2 IDCO Therapy Statistic Recent Shocks Aborted 0 IDCO Therapy Statistic Total Shocks Aborted 0 IDCO Therapy Statistic Recent ATP Delivered 2 IDCO Therapy Statistic Total ATP Delivered 12 IDCO Anatomical Region Laterality Modality Other 12/01/2020 12:4 2 AM EDT Physician Cardiology IMPLANTABLE CARD IAC DEVICE documented in this encounter Visit Diagnoses Not on filedocumented in this encounter Care Teams Office Employee Relationship Specialty Start Date End Date Dewayne Carrington MD [address] [place] [address] PCP - General 09/02/16 documented as of this encounter
--- OUTSIDE RECORDS SUMMARY | 2023-11-03 01:22 | XMS_ITS | Encounter Summary ---
Author Organization [facility] Address [facility] [place] [address] Care Team Providers Care [employer]er Name Role Phone Dewayne Carrington MD Primary Care Provider [phone] Encounter Details Date Type Department Care Team ([facility] st Contact Info) Description 12/12/2020 10:40 AM EDT Office Visit Cardiology at [address] [place] [phone] Fantasma Matos [place] [facility] [place] [address] Sustained VT (ventricular tachycardia); Persistent atrial fibrillation; ICD (implantable cardioverter-defibril lator), dual, in situ; Cardiomyopathy, ischemic Social History Tobacco Use Types Packs/Day Years [...] Sign Reading Time Taken Comments Blood Pressure 111/62 12/12/2020 10:39 AM EDT Pulse 55 12/12/2020 10:39 AM EDT Temperature - - Respiratory Rate - - Oxygen Saturation 99% 12/12/2020 10:39 AM EDT Inhaled Oxygen Concentration - - Weight 86.6 kg (191 lb) 12/12/2020 10:39 AM EDT Height 186.7 cm (6' 1.5) 12/12/2020 10:39 AM ED T Body Mass Index 24.86 12/12/2020 10:39 AM EDT documented in this encounter Patient Instructions * Patient Instructions* Fantasma Matos MD - 12/12/2020 10:40 AM EDT It was a pleasure to see you today. Amiodarone appears to be effective for you, though it may contribute to liver abnormalities. Please to by the laboratory to have some routine blood work For now please continue to take amiodarone 400 mg ONCE daily Please reduce your atorvastatin to 20 mg from 80 mg NIGHTLY (I've sent a new prescriptions to [facility]) Continue metoprolol succinate 100 mg TWICE a day I will arrange for you to follow up w/ my gustavo Molina at [facility] documented in this encounter Progress Notes * Fantasma Matos MD - 12/12/2020 10:40 AM EDT Cardiac Electrophysiology Marquez Hendrix Is a 70 yo man from [facility] with ischemic cardiomyopathy who was seen in Cardiac Electrophysiology clinic in follow-up for sustained VT. He is known to me from a cardioversion for persistent AF performed in October 2020. His [id number] is >>1 and he is appropriately anticpagulated on Xarelto. He has a dual-chamber [employer] ICD, and has had both successful and unsuccessful ATP in the past. On or around 11/28/20 he was seen at [facility] feeling suddenly poorly and was found to be in VT just in/out of his lower detection rate. His device was reprogrammed (lower rates decreased) and he was started on amiodarone. On remote transmission 12/01/20: Battery Status:??good; est long 4yrs ?? Atrial lead status:??good Right ventricular lead status:??good Left ventricular lead status:??n/a ?? Pacing:?? 3??% Atrial pacing 1??% Ventricular pacing ?? Events/Arrhythmias noted since last reset: 13 NSVT/VT episodes since 11/30 - 2 episodes on 11/30 at 1732 and 1735 received ATP in VT-1 zone for rapid MMVTwith success He's not had recurrent palpitations or near syncope nor device therapies that he is aware of. Interrogation of his device today shows suppressed cardiac arrhythmias. However, pt has a history of abnormal LFTs. ? Fatty liver. Raising concerns re: [facility] amiodarone. Patient Active Problem List Diagnosis Code ??? 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 Diabetes mellitus E11.9 ??? HTN (hypertension) I10 ??? Elevated cholesterol E78.00 ??? IBS (irritable bowel syndrome) K58.9 ??? T2DM (type 2 diabetes mellitus) E11.9 ??? Gastroesophageal reflux disease K21.9 ??? Irritant contact dermatitis L24.9 ??? Dermatitis L30.9 ??? Depression F32.9 ??? Sustained VT (ventricular tachycardia) I47.2 ??? [...] ??? Rib pain on right side R07.81 Outpatient Medications Marked as Taking for the 12/12/20 encounter (Office Visit) with Fantasma Matos MD Medication Sig Dispense Refill ??? AMIOdarone (Paceron) 200 mg Tablet Take 400 mg by mouth daily. ??? cyanocobalamin, Vitamin B-12, (Vitamin B-12) 1,000 [...] 0 ??? lamoTRIgine (LAMICTAL) 200 mg Tablet 200 mg daily. 0 ??? aspirin 81 mg [...] Injector Inject 1.2 mg subcutaneously daily. ??? [DISCONTINUED] atorvastatin (LIPITOR) 80 mg Tablet Take 80 mg by mouth daily. ??? traMADol (ULTRAM) 50 mg Tablet Take 50 mg by mouth daily as needed for Pain. ??? lisinopril (PRINIVIL;ZESTRIL) 20 mg Tablet Take 1 tablet by mouth daily. (Patient taking differently: Take 2.5 mg by mouth daily. HAS 5MG TABS) 30 tablet 12 ??? zolpidem (AMBIEN) 10 mg tablet Take 5 mg by mouth nightly as needed. ??? multivitamin capsule Take 1 capsule by mouth daily. ??? LANCETS MISC by Misc.(Non-Drug; Combo Route) route. ??? metformin (GLUCOPHAGE) 1,000 mg tablet Take 1,000 mg by mouth 2 times daily (with meals). Exam: BP 111/62 Pulse 55 Ht 186.7 cm (6' 1.5) Wt 86.6 kg (191 lb) SpO2 99% BMI 24.86 kg/m?? Gen: well appearing in no acute distress Left sided ICD pulse generator pocket appears benign w/o sign of infection Lungs clear to auscultation bilaterally Heart RRR S1 S2 Abd : deferred Extr no edema NeuroPsych: A&O x 3. No focal deficits. Appropriate affect. Lab Results Component Value Date CREATININE 0.90 10/23/2020 BUN 25 (H) 10/23/2020 NA 141 10/23/2020 K 4.5 10/23/2020 CL 104 10/23/2020 CO2 27 10/23/2020 Lab Results Component Value Date WBC 7.4 07/14/2018 HGB 12.3 (L) 07/14/2018 HCT 40.1 (L) 07/14/2018 MCV 79.9 (L) 07/14/2018 PLATELET 240 07/14/2018 No results found for: TSH Lab Results Component Value Date ALT 41 09/01/2018 AST 41 (H) 09/01/2018 ALKPHOS 70 09/01/2018 BILITOT 0.4 09/01/2018 Assessment 1) AF - s/p DCCV in October currently in sinus w/ rare Atrial pacing. anti- arrhythmic therapy will help maintain 2) AF / [id number] = at least 4 for age >64 <75, HTN, DM2, ischemic heart disease - normal renal function, on appropriate rivaroxiban (Xarelto) for reduction of stroke tisk 3) VT - related to his ischemic CMP. Did not appear related to CHF exacerbation. Hemodynamically symptomatic yet tolerated - thus may be favorable VT ablation candidate in the future 4) for time being I have asked him to continue taking amiodarone 400 mg po ONE daily (has still been taking BID), continue metoprolol succinate 100 mg po BID, REDUCE atorvastatin from 80 to 20 mg nightly given amiodarone Rx 5) repeat LFTs : (since reported, show mild but < 2X elevations in AST & ALT - but in face of 400 mg po BID amiodarone and atorva 80 daily) Lab Results Component Value Date ALT 57 (H) 12/12/2020 AST 57 (H) 12/12/2020 ALKPHOS 83 12/12/2020 BILITOT 0.5 12/12/2020 6) For patient's geographic/travel convenience, EP follow-up w/ Dr. Molina at [facility] where patient hasmet this provider previously. He may elect to reduce amiodarone down to 200 mg daily at his discretion. Patient indicated understanding of and agreement w/ the immediate plans as outlined above. Continued remote monitoring will be useful. Fantasma Matos MD, PhD, [facility] Cardiac Electrophysiology documented in this encounter Plan of Treatment Upcoming Encounters Date Type Department Care Team (Late st Contact Info) Description 12/18/2023 10:00 AM EDT Hospital Encounter Non-Invasive [place] [phone] Arrived documented as of this encounter Procedures Procedure Name Priority Date/Time Associated Diagnosis Comments HC THYROID STIMULATING HORMONE, SERUM Routine 12/12/2020 12:12 PM EDT Sustained VT (ventricular tachycardia) HEPATIC FUNCTION PANEL Routine 12/12/2020 12:12 PM EDT Sustained VT (ventricular tachycardia) EKG 12-LEAD Routine 12/12/2020 10:44 AM EDT Sustained VT (ventricular tachycardia) documented in this encounter Results * TSH (12/12/2020 12:12 PM EDT) TSH 0.93 0.27 - 4.20 mcIU/mL [facility] Comment: Reference Interval (mcIU/mL): Females: ??First Trimester: 0.23-3.88 ??Second Trimester: 0.22-3.90 ??Third Trimester: 0.44-4.66 Blood 12/12/2020 12:1 2 PM EDT 12/12/2020 12:19 PM EDT Narrative Resulting Agency Comment Spec In Lab Fantasma Matos MD CHEMISTRY ORDERABLES Performing Organization Address [facility] Co de Phone Number [facility] [place] [address] * (ABNORMAL) Hepatic Function Panel (12/12/2020 12:12 PM EDT) [facility] Total Protein 7.5 6.1 - 8.0 gm/dL [facility] Albumin 4.7 3.2 - 5.2 gm/dL [facility] AST 57(H) 0 - 39 unit/L [facility] ALT 57(H) 0 - 55 unit/L [facility] Alk Phos 83 40 - 130 unit/L [facility] Total Bilirubin 0.5 0.2 - 1.3 mg/dL [facility] Bili, Direct 0.2 0.0 - 0.3 mg/dL [facility] Blood 12/12/2020 12:1 2 PM EDT 12/12/2020 12:19 PM EDT Narrative Resulting Agency Comment Spec In Lab Fantasma Matos MD CHEMISTRY ORDERABLES Performing Organization Address [facility] Co de Phone Number [facility] [place] [address] * EKG 12 Lead (12/12/2020 10:44 AM EDT) Pathologist [facility] Ventricular rate 55 BPM MUSE SYSTEM Atrial Rate 55 BPM MUSE SYSTEM P-R Interval 290 ms MUSE SYSTEM QRS Duration 130 ms MUSE SYSTEM Q-T Interval 494 ms MUSE SYSTEM QTC Calculated (Bezet) 472 ms MUSE SYSTEM Calculated R Payne -67 degrees MUSE SYSTEM INTERPRETATION Atrial-paced rhythm with prolonged AV conduction Left axis deviation Non-specific intra-ventric ular conduction block Inferior infarct (cited on or before 23-OCT-2020) Abnormal ECG When compared with ECG of 23-OCT-2020 11:54, Electronic atrial pacemaker has replaced Sinus rhythm T wave inversion no longer evident in Anterior leads Confirmed by MD Clair, Kit ([id number]) on 12/12/2020 1:13:16 PM MUSE SYSTEM 12/12/2020 10:4 4 AM EDT 12/12/2020 1:13 PM EDT Fantasma Matos MD ECG ORDERABLES MUSE SYSTEM documented in this encounter Visit Diagnoses Diagnosis Sustained VT (ventricular tachycardia) Paroxysmal ventricular tachycardia Persistent atrial fibrillation Atrial fibrillation ICD (implantable cardioverter-defibrillator), dual, in situ Cardiomyopathy, ischemic Other specified forms of chronic ischemic heart disease documented in this encounter Care Teams [employer]er Relationship Specialty Start Date End Date Dewayne Carrington MD [address] [place] [address] PCP - General 09/02/16 documented as of this encounter
--- OUTSIDE RECORDS SUMMARY | 2023-11-03 01:22 | XMS_ITS | Encounter Summary ---
[place] [address] Care Team Providers Care Shoe Planner Name Role Phone Dewayne Carrington MD Primary Care Provider [phone] Encounter Details Date Type Department Care Team (Late st Contact Info) Description 12/27/2020 Orders Only Cardiology at [address] [address] Social History Tobacco Use Types Packs/Day Years [...] AM EDT Hospital Encounter Non[place] [address] Arrived documented as of this encounter Procedures Procedure Name Priority Date/Time Associated Diagnosis Comments CARDIAC DEVICE CHECK - REMOTE SCHEDULED Routine 12/27/2020 12:41 AM EDT documented in this encounter Results * Cardiac device check - Remote Scheduled (12/27/2020 12:41 AM EDT) Date Time Interrogation Session IDCO Type Interrogation Session Remote Scheduled IDCO Clinic Name [facility] IDCO Battery Date Time of Measurements IDCO Battery Status Beginning of Service IDCO Battery Remaining Longevity 48 mo IDCO Battery Remaining Percentage 60 % IDCO Capacitor Last Charge Date Time IDCO Capacitor Charge Time 11.3 s IDCO Capacitor Charge Type Reformation IDCO Capacitor Last Charge Date Time IDCO Capacitor Charge Time 3.8 s IDCO Capacitor Charge Energy 21 J IDCO Capacitor Charge Type Shock IDCO Episode Identifier [id number] IDCO Episode Date Time IDCO Episode Type Category Periodic EGM IDCO Episode Vendor Type Category APMRT IDCO Episode Detection And Therapy Details Presenting EGM IDCO Episode Identifier [id number] IDCO Episode Date Time IDCO Episode Type Category Other IDCO Episode Vendor Type Category XANDER IDCO Episode Detection Interval Ventricular 909 ms IDCO Episode Duration 53 s IDCO Episode Detection And Therapy Details IDCO Episode Identifier [id number] IDCO Episode Date Time IDCO Episode Type Category Other IDCO Episode Vendor Type Category XANDER IDCO Episode Detection Interval Ventricular 896 ms IDCO Episode Duration 53 s IDCO Episode Detection And Therapy Details IDCO Episode Identifier [id number] IDCO Episode Date Time IDCO Episode Type Category Other IDCO Episode Vendor Type Category XANDER IDCO Episode Detection Interval Ventricular 882 ms IDCO Episode Duration 51 s IDCO Episode Detection And Therapy Details IDCO Episode Identifier [id number] IDCO Episode Date Time IDCO Episode Type Category Other IDCO Episode Vendor Type Category XANDER IDCO Episode Detection Interval Ventricular 882 ms IDCO Episode Duration 50 s IDCO Episode Detection And Therapy Details IDCO Episode Identifier [id number] IDCO Episode Date Time IDCO Episode Type Category Other IDCO Episode Vendor Type Category XANDER IDCO Episode Detection Interval Ventricular 857 ms IDCO Episode Duration 49 s IDCO Episode Detection And Therapy Details IDCO Episode Identifier [id number] IDCO Episode Date Time IDCO Episode Type Category Other IDCO Episode Vendor Type Category XANDER IDCO Episode Detection Interval Ventricular 769 ms IDCO Episode Duration 42 s IDCO Episode Detection And Therapy Details IDCO Episode Identifier [id number] IDCO Episode Date Time IDCO Episode Type Category Other IDCO Episode Vendor Type Category XANDER IDCO Episode Detection Interval Ventricular 896 ms IDCO Episode Duration 52 s IDCO Episode Detection And Therapy Details IDCO Episode Identifier [id number] IDCO Episode Date Time IDCO Episode Type Category Other IDCO Episode Vendor Type Category XANDER IDCO Episode Detection Interval Ventricular 923 ms IDCO Episode Duration 52 s IDCO Episode Detection And Therapy Details IDCO Episode Identifier [id number] IDCO Episode Date Time IDCO Episode Type Category Other IDCO Episode Vendor Type Category XANDER IDCO Episode Detection Interval Ventricular 896 ms IDCO Episode Duration 53 s IDCO Episode Detection And Therapy Details IDCO Episode Identifier [id number] IDCO Episode Date Time IDCO Episode Type Category Other IDCO Episode Vendor Type Category XANDER IDCO Episode Detection Interval Ventricular 984 ms IDCO Episode Duration 52 s IDCO Episode Detection And Therapy Details IDCO Episode Statistic Type Category VF IDCO Episode Statistic Vendor Type Category VF IDCO Episode Statistic Recent Count 0 IDCO Episode Statistic Recent Date Time Start 20201212 IDCO Episode Statistic Recent Date Time End 20201227 IDCO Episode Statistic Type Category VT IDCO Episode Statistic Vendor Type Category VT IDCO Episode Statistic Recent Count 0 IDCO Episode Statistic Recent Date Time Start 20201212 IDCO Episode Statistic Recent Date Time End 20201227 IDCO Episode Statistic Type Category VT IDCO Episode Statistic Vendor Type Category VT-1 IDCO Episode Statistic Recent Count 0 IDCO Episode Statistic Recent Date Time Start 20201212 IDCO Episode Statistic Recent Date Time End 20201227 IDCO Episode Statistic Type Category Monitor IDCO Episode Statistic Vendor Type Category IDCO Episode Statistic Recent Count 0 IDCO Episode Statistic Recent Date Time Start 20201212 IDCO Episode Statistic Recent Date Time End 20201227 IDCO Episode Statistic Type Category Other IDCO Episode Statistic Vendor Type Category IDCO Episode Statistic Recent Count 0 IDCO Episode Statistic Recent Date Time Start 20201212 IDCO Episode Statistic Recent Date Time End 20201227 IDCO Episode Statistic Type Category VT IDCO Episode Statistic Vendor Type Category NSVT IDCO Episode Statistic Recent Count 0 IDCO Episode Statistic Recent Date Time Start 20201212 IDCO Episode Statistic Recent Date Time End 20201227 IDCO Episode Statistic Type Category AT/AF IDCO Episode Statistic Vendor Type Category ATR IDCO Episode Statistic Recent Count 0 IDCO Episode Statistic Recent Date Time Start 20201212 IDCO Episode Statistic Recent Date Time End 20201227 IDCO Albaro Setting AT Mode Switch Mode [...] E162 IDCO Implantable Pulse Generator Serial Number [id number] IDCO Implantable Pulse Generator Medical Equipment Repair Technician [place] [employer] IDCO Implantable Pulse Generator Implant Date 20140110 IDCO Implantable Lead Model 4136 IDCO Implantable Lead Serial Number [id number] IDCO Implantable Lead Medical Equipment Repair Technician Guidant IDCO Implantable Lead Implant Date 20130421 IDCO Implantable Lead Polarity Type Bipolar Lead IDCO Implantable Lead Location Right Atrium IDCO Implantable Lead Model 0292 IDCO Implantable Lead Serial Number [id number] IDCO Implantable Lead Medical Equipment Repair Technician [place] [employer] IDCO Implantable Lead Implant Date IDCO Implantable Lead Location Right Ventricle IDCO Lead Channel Measurements Date and Time Start 20201128 IDCO Lead Channel Measurements Date and Time End 20201226 IDCO Lead Channel Sensing Intrinsic Amplitude Mean 4.1 mV IDCO Lead Channel Sensing Polarity Bipolar IDCO Lead Channel Pacing Threshold Amplitude 0.9 V IDCO Lead Channel Pacing Threshold Pulse Width 0.5 ms IDCO Lead Channel Pacing Threshold Measurement Method Dental Sales Representative Manual IDCO Lead Channel Pacing Threshold Polarity Bipolar IDCO Lead Channel Impedance Value 769 ohms IDCO Lead Channel Impedance Polarity Bipolar IDCO Lead Channel Measurements Date and Time Start 20201128 IDCO Lead Channel Measurements Date and Time End 20201226 IDCO Lead Channel Sensing Intrinsic Amplitude Mean 11.4 mV IDCO Lead Channel Sensing Polarity Bipolar IDCO Lead Channel Pacing Threshold Amplitude 0.7 V IDCO Lead Channel Pacing Threshold Pulse Width 0.5 ms IDCO Lead Channel Pacing Threshold Measurement Method Dental Sales Representative Manual IDCO Lead Channel Pacing Threshold Polarity Bipolar IDCO Lead Channel Impedance Value 624 ohms IDCO Lead Channel Impedance Polarity Bipolar IDCO Lead High Voltage Channel Date Time 20201226 IDCO Lead High Voltage Channel Impedance 93 ohms IDCO Lead High Voltage Channel Measurement Type Low Voltage Pulse IDCO Statistic Date Time Start 20201212 IDCO Statistic Date Time End 20201227 IDCO Albaro Statistic Date Time Start 20201212 IDCO Albaro Statistic Date Time End 20201227 IDCO Albaro Statistic RA Percent Paced 32 % IDCO Albaro Statistic RV Percent Paced 0 % IDCO Therapy Statistic Recent Date Time Start 20201212 IDCO Therapy Statistic Recent Date Time End 20201227 IDCO Therapy Statistic Recent Shocks Delivered 0 IDCO Therapy Statistic Total Date Time Start 20140110 IDCO Therapy Statistic Total Date Time End 20201227 IDCO Therapy Statistic Total Shocks Delivered 2 IDCO Therapy Statistic Recent Shocks Aborted 0 IDCO Therapy Statistic Total Shocks Aborted 0 IDCO Therapy Statistic Recent ATP Delivered 0 IDCO Therapy Statistic Total ATP Delivered 12 IDCO Anatomical Region Laterality Modality Other 12/27/2020 12:4 1 AM EDT Physician Cardiology IMPLANTABLE CARD IAC DEVICE documented in this encounter Visit Diagnoses Not on filedocumented in this encounter Care Teams Shoe Planner Relationship Specialty Start Date End Date Dewayne Carrington MD [facility] [place] [address] PCP - General 09/02/16 documented as of this encounter
--- OUTSIDE RECORDS SUMMARY | 2023-11-03 01:22 | XMS_ITS | Encounter Summary ---
Author Organization [facility] [place] [address] Care Team Providers Care Hardware Manager Name Role Phone Dewayne Carrington MD Primary Care Provider [phone] Encounter Details Date Type Department Care Team ([facility] st Contact Info) Description 10/18/2020 Telephone Cardiology at [address] [phone] Aileen Larios RN Social History Tobacco Use Types Packs/Day Years Used Date Smoking Tobacco: Former Cigarettes 0.8 25 0 12/19/1988 - 12/19/2013 e-Cigarettes Smokeless Tobacco: Never Comments:using e cigarettes Alcohol Use Standard Drinks/Week Comments No 0 (1 standard drink = 0.6 oz pur e alcohol) Sex and Gender Information Value Date Recorded Sex Assigned at Not on file Gender Identity Not on file Sexual Orientation Not on file documented as of this encounter Miscellaneous Notes * Telephone Encounter - Aileen Larios RN - 10/18/2020 8:59 AM EDTSummary: Pre Procedure Call: Cardioversion LEX RN CARDIOVERSION/DRUG LOAD CHECKLIST Patient Name: Marquez Hendrix Patient Providers: Luke Garner / Claudette aMtos Date Scheduled: 10/23/20 Arrival Time/ Case Time: 8:30 am labs / 9:30 am work up / 11: 30 am CV Date Patient was Called: 10/18/20 Procedure: Cardioversion Med Instructions: Anticoag Type: Xarelto (rivaroxaban) - confirmed pt is taking appropriately & no missed doses within past 21 days DM: Yes - hold metformin & glipizide the AM of procedure Coming from an assisted living facility?: No Special Considerations/Notes: Clear liquids (water, apple juice, estevan roberto, black coffee/tea) OK up until 2 hrs prior to procedure. NPO after midnight. Understands that jeep driver is needed to transport them upon discharge. documented in this encounter Plan of Treatment Upcoming Encounters Date Type Department Care Team (Late st Contact Info) Description 12/18/2023 10:00 AM EDT Hospital Encounter [place] [address] Arrived documented as of this encounter Visit Diagnoses Not on filedocumented in this encounter Care Teams Hardware Manager Relationship Specialty Start Date End Date Dewayne Carrington MD [address] [place] [address] PCP - General 09/02/16 documented as of this encounter
--- OUTSIDE RECORDS SUMMARY | 2023-11-03 01:22 | XMS_ITS | Encounter Summary ---
Author Organization [facility] [place] [address] Care Team Providers Care Hairspring Truing Inspector Name Role Phone Dewayne Carrington MD Primary Care Provider [phone] Encounter Details Date Type Department Care Team (Late st Contact Info) Description 11/27/2020 [place] [phone] Danieal Torres MD [facility] [place] [address] Social History Tobacco Use Types Packs/Day Years [...] Encounter - Daniela Torres MD - 11/27/2020 10:05 PM EDT Cardiology On-Call Phone Note I received a page from the patient requesting a call back. I tried first and someone answered and hung up. I tried a second time without any answer. Daniela Torres, PGY6 Cardiovascular Disease Fellow documented in this encounter Plan of Treatment Upcoming Encounters Date Type Department Care Team (Late st Contact Info) Description 12/18/2023 10:00 AM EDT Hospital Encounter Non[place] [address] Arrived documented as of this encounter Visit Diagnoses Not on filedocumented in this encounter Care Teams Hairspring Truing Inspector Relationship Specialty Start Date End Date Dewayne Carrington MD [address] [place] [address] PCP - General 09/02/16 documented as of this encounter
--- OUTSIDE RECORDS SUMMARY | 2023-11-03 01:22 | XMS_ITS | Encounter Summary ---
[place] [address] Care Team Providers Care Separator Inserter Name Role Phone Dewayne Carrington MD Primary Care Provider [phone] Encounter Details Date Type Department Care Team (Late st Contact Info) Description 09/24/2020 Orders Only Cardiology at [address] [address] Social History Tobacco Use Types Packs/Day Years [...] AM EDT Hospital Encounter Non-Invasive [place] [address] Arrived documented as of this encounter Procedures Procedure Name Priority Date/Time Associated Diagnosis Comments CARDIAC DEVICE CHECK - REMOTE DEVICE INITIATED Routine 09/24/2020 12:41 AM EDT documented in this encounter Results * Cardiac device check - Remote Device Initiated (09/24/2020 12:41 AM EDT) Pathologist [facility] Date Time Interrogation Session [id number] IDCO Type Interrogation Session Remote Device Initiated IDCO Clinic Name [facility] IDCO Battery Date Time of Measurements [id number] IDCO Battery Status Beginning of Service IDCO Battery Remaining Longevity 36 mo IDCO Battery Remaining Percentage 44 % IDCO Capacitor Last Charge Date Time [id number] IDCO Capacitor Charge Time 11.2 s IDCO Capacitor Charge Type Reformation IDCO Capacitor Last Charge Date Time IDCO Capacitor Charge Time 3.8 s IDCO Capacitor Charge Energy 21 J IDCO Capacitor Charge Type Shock IDCO Episode Identifier APM-58 IDCO Episode Date Time IDCO Episode Type Category Periodic EGM IDCO Episode Vendor Type Category APMRT IDCO Episode Detection And Therapy Details Presenting EGM IDCO Episode Identifier ATR-460 IDCO Episode Date Time IDCO Episode Type Category AT/AF IDCO Episode Vendor Type Category ATR IDCO Episode Detection Interval Atrial 202 ms IDCO Episode Detection And Therapy Details ATR IDCO Episode Identifier ATR-459 IDCO Episode Date Time IDCO Episode Type Category AT/AF IDCO Episode Vendor Type Category ATR IDCO Episode Detection Interval Atrial 196 ms IDCO Episode Duration 10,956 s IDCO Episode Detection And Therapy Details ATR IDCO Episode Identifier ATR-458 IDCO Episode Date Time IDCO Episode Type Category AT/AF IDCO Episode Vendor Type Category ATR IDCO Episode Detection Interval Atrial 204 ms IDCO Episode Duration 1 s IDCO Episode Detection And Therapy Details ATR IDCO Episode Identifier ATR-457 IDCO Episode Date Time IDCO Episode Type Category AT/AF IDCO Episode Vendor Type Category ATR IDCO Episode Detection Interval Atrial 202 ms IDCO Episode Duration IDCO Episode Detection And Therapy Details ATR IDCO Episode Identifier [id number] IDCO Episode Date Time IDCO Episode Type Category VT IDCO Episode Vendor Type Category VT-1 IDCO Episode Type Induced Flag NO IDCO Episode Detection Interval Ventricular 385 ms IDCO Episode Duration 55 s IDCO Episode Detection And Therapy Details VT-1 ATPx3 IDCO Episode Identifier ATR-456 IDCO Episode Date Time IDCO Episode Type Category AT/AF IDCO Episode Vendor Type Category ATR IDCO Episode Detection Interval Atrial 203 ms IDCO Episode Duration 14 s IDCO Episode Detection And Therapy Details ATR IDCO Episode Identifier V-[id number] IDCO Episode Date Time IDCO Episode Type Category VT IDCO Episode Vendor Type Category NSVT IDCO Episode Type Induced Flag NO IDCO Episode Detection Interval Ventricular 387 ms IDCO Episode Duration 14 s IDCO Episode Detection And Therapy Details NonSustV IDCO Episode Identifier IDCO Episode Date Time IDCO Episode Type Category VT IDCO Episode Vendor Type Category NSVT IDCO Episode Type Induced Flag NO IDCO Episode Detection Interval Ventricular 423 ms IDCO Episode Duration 4 s IDCO Episode Detection And Therapy Details NonSustV IDCO Episode Identifier IDCO Episode Date Time IDCO Episode Type Category VT IDCO Episode Vendor Type Category NSVT IDCO Episode Type Induced Flag NO IDCO Episode Detection Interval Ventricular 382 ms IDCO Episode Duration 6 s IDCO Episode Detection And Therapy Details NonSustV IDCO Episode Identifier IDCO Episode Date Time IDCO Episode Type Category VT IDCO Episode Vendor Type Category NSVT IDCO Episode Type Induced Flag NO IDCO Episode Detection Interval Ventricular 392 ms IDCO Episode Duration 4 s IDCO Episode Detection And Therapy Details NonSustV IDCO Episode Identifier IDCO Episode Date Time IDCO Episode Type Category VT IDCO Episode Vendor Type Category NSVT IDCO Episode Type Induced Flag NO IDCO Episode Detection Interval Ventricular 403 ms IDCO Episode Duration 5 s IDCO Episode Detection And Therapy Details NonSustV IDCO Episode Identifier IDCO Episode Date Time IDCO Episode Type Category VT IDCO Episode Vendor Type Category NSVT IDCO Episode Type Induced Flag NO IDCO Episode Detection Interval Ventricular 395 ms IDCO Episode Duration 9 s IDCO Episode Detection And Therapy Details NonSustV IDCO Episode Identifier IDCO Episode Date Time IDCO Episode Type Category VT IDCO Episode Vendor Type Category NSVT IDCO Episode Type Induced Flag NO IDCO Episode Detection Interval Ventricular 390 ms IDCO Episode Duration 5 s IDCO Episode Detection And Therapy Details NonSustV IDCO Episode Identifier IDCO Episode Date Time IDCO Episode Type Category VT IDCO Episode Vendor Type Category NSVT IDCO Episode Type Induced Flag NO IDCO Episode Detection Interval Ventricular 395 ms IDCO Episode Duration 4 s IDCO Episode Detection And Therapy Details NonSustV IDCO Episode Identifier V-[id number] IDCO Episode Date Time IDCO Episode Type Category VT IDCO Episode Vendor Type Category NSVT IDCO Episode Type Induced Flag NO IDCO Episode Detection Interval Ventricular 395 ms IDCO Episode Duration 11 s IDCO Episode Detection And Therapy Details NonSustV IDCO Episode Identifier ATR-455 IDCO Episode Date Time IDCO Episode Type Category AT/AF IDCO Episode Vendor Type Category ATR IDCO Episode Detection Interval Atrial 171 ms IDCO Episode Duration 1,896 s IDCO Episode Detection And Therapy Details ATR IDCO Episode Identifier V-[id number] IDCO Episode Date Time IDCO Episode Type Category VT IDCO Episode Vendor Type Category NSVT IDCO Episode Type Induced Flag NO IDCO Episode Detection Interval Ventricular 385 ms IDCO Episode Duration 17 s IDCO Episode Detection And Therapy Details NonSustV IDCO Episode Identifier ATR-454 IDCO Episode Date Time IDCO Episode Type Category AT/AF IDCO Episode Vendor Type Category ATR IDCO Episode Detection Interval Atrial 169 ms IDCO Episode Duration 16 s IDCO Episode Detection And Therapy Details ATR IDCO Episode Identifier ATR-453 IDCO Episode Date Time IDCO Episode Type Category AT/AF IDCO Episode Vendor Type Category ATR IDCO Episode Detection Interval Atrial 180 ms IDCO Episode Duration IDCO Episode Detection And Therapy Details ATR IDCO Episode Identifier ATR-452 IDCO Episode Date Time IDCO Episode Type Category AT/AF IDCO Episode Vendor Type Category ATR IDCO Episode Detection Interval Atrial 184 ms IDCO Episode Duration IDCO Episode Detection And Therapy Details ATR IDCO Episode Identifier ATR-451 IDCO Episode Date Time [id number] IDCO Episode Type Category AT/AF IDCO Episode Vendor Type Category ATR IDCO Episode Detection Interval Atrial 179 ms IDCO Episode Duration 1 s IDCO Episode Detection And Therapy Details ATR IDCO Episode Identifier [id number] IDCO Episode Date Time IDCO Episode Type Category VT IDCO Episode Vendor Type Category VT-1 IDCO Episode Type Induced Flag NO IDCO Episode Detection Interval Ventricular 385 ms IDCO Episode Duration 74 s IDCO Episode Detection And Therapy Details VT-1 ATPx6 IDCO Episode Identifier ATR-450 IDCO Episode Date Time [id number] IDCO Episode Type Category AT/AF IDCO Episode Vendor Type Category ATR IDCO Episode Detection Interval Atrial 229 ms IDCO Episode Duration 11 s IDCO Episode Detection And Therapy Details ATR IDCO Episode Statistic Type Category VF IDCO Episode Statistic Vendor Type Category VF IDCO Episode Statistic Recent Count 0 IDCO Episode Statistic Recent Date Time Start 20200918 IDCO Episode Statistic Recent Date Time End 20200924 IDCO Episode Statistic Type Category VT IDCO Episode Statistic Vendor Type Category VT IDCO Episode Statistic Recent Count 0 IDCO Episode Statistic Recent Date Time Start 20200918 IDCO Episode Statistic Recent Date Time End 20200924 IDCO Episode Statistic Type Category VT IDCO Episode Statistic Vendor Type Category VT-1 IDCO Episode Statistic Recent Count 2 IDCO Episode Statistic Recent Date Time Start 20200918 IDCO Episode Statistic Recent Date Time End 20200924 IDCO Episode Statistic Type Category Monitor IDCO Episode Statistic Vendor Type Category IDCO Episode Statistic Recent Count 0 IDCO Episode Statistic Recent Date Time Start 20200918 IDCO Episode Statistic Recent Date Time End 20200924 IDCO Episode Statistic Type Category Other IDCO Episode Statistic Vendor Type Category IDCO Episode Statistic Recent Count 0 IDCO Episode Statistic Recent Date Time Start 20200918 IDCO Episode Statistic Recent Date Time End 20200924 IDCO Episode Statistic Type Category VT IDCO Episode Statistic Vendor Type Category NSVT IDCO Episode Statistic Recent Count 17 IDCO Episode Statistic Recent Date Time Start 20200918 IDCO Episode Statistic Recent Date Time End 20200924 IDCO Episode Statistic Type Category AT/AF IDCO Episode Statistic Vendor Type Category ATR IDCO Episode Statistic Recent Count 12 IDCO Episode Statistic Recent Date Time Start 20200918 IDCO Episode Statistic Recent Date Time End 20200924 IDCO Albaro Setting AT Mode Switch Mode [...] Status Active IDCO Zone Setting Detection Interval 333 ms IDCO Zone Setting ATP Type Burst+Scan [...] Status Active IDCO Zone Setting Detection Interval 387 ms IDCO Zone Setting ATP Type Burst+Scan [...] E162 IDCO Implantable Pulse Generator Serial Number [id number] IDCO Implantable Pulse Generator Slasher 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 [employer] IDCO Implantable Pulse Generator Implant Date 20140110 IDCO Implantable Lead Model 4136 IDCO Implantable Lead Serial Number [id number] IDCO Implantable Lead Slasher Runner [employer] IDCO Implantable Lead Implant Date 20130421 IDCO Implantable Lead Polarity Type Bipolar Lead IDCO Implantable Lead Location Right Atrium IDCO Implantable Lead Model 0292 IDCO Implantable Lead Serial Number [id number] IDCO Implantable Lead Slasher Runner [employer] IDCO Implantable Lead Implant Date IDCO Implantable Lead Location Right Ventricle IDCO Lead Channel Measurements Date and Time Start 20190921 IDCO Lead Channel Measurements Date and Time End 20200923 IDCO Lead Channel Sensing Intrinsic Amplitude Mean 3.6 mV IDCO Lead Channel Sensing Polarity Bipolar IDCO Lead Channel Pacing Threshold Amplitude 0.7 V IDCO Lead Channel Pacing Threshold Pulse Width 0.5 ms IDCO Lead Channel Pacing Threshold Measurement Method Softlines Supervisor Manual IDCO Lead Channel Pacing Threshold Polarity Bipolar IDCO Lead Channel Impedance Value 735 ohms IDCO Lead Channel Impedance Polarity Bipolar IDCO Lead Channel Measurements Date and Time Start 20200918 IDCO Lead Channel Measurements Date and Time End 20200923 IDCO Lead Channel Sensing Intrinsic Amplitude Mean 19.3 mV IDCO Lead Channel Sensing Polarity Bipolar IDCO Lead Channel Pacing Threshold Amplitude 0.7 V IDCO Lead Channel Pacing Threshold Pulse Width 0.5 ms IDCO Lead Channel Pacing Threshold Measurement Method Softlines Supervisor Manual IDCO Lead Channel Pacing Threshold Polarity Bipolar IDCO Lead Channel Impedance Value 628 ohms IDCO Lead Channel Impedance Polarity Bipolar IDCO Lead High Voltage Channel Date Time 20200923 IDCO Lead High Voltage Channel Impedance 88 ohms IDCO Lead High Voltage Channel Measurement Type Low Voltage Pulse IDCO Statistic Date Time Start 20200918 IDCO Statistic Date Time End 20200924 IDCO Albaro Statistic Date Time Start 20200918 IDCO Albaro Statistic Date Time End 20200924 IDCO Albaro Statistic RA Percent Paced 0 % IDCO Albaro Statistic RV Percent Paced 19 % IDCO Therapy Statistic Recent Date Time Start 20200918 IDCO Therapy Statistic Recent Date Time End 20200924 IDCO Therapy Statistic Recent Shocks Delivered 0 IDCO Therapy Statistic Total Date Time Start 20140110 IDCO Therapy Statistic Total Date Time End 20200924 IDCO Therapy Statistic Total Shocks Delivered 2 IDCO Therapy Statistic Recent Shocks Aborted 0 IDCO Therapy Statistic Total Shocks Aborted 0 IDCO Therapy Statistic Recent ATP Delivered 3 IDCO Therapy Statistic Total ATP Delivered 10 IDCO Anatomical Region Laterality Modality Other 09/24/2020 12:4 1 AM EDT Physician Cardiology IMPLANTABLE CARD IAC DEVICE documented in this encounter Visit Diagnoses Not on filedocumented in this encounter Care Teams Separator Inserter Relationship Specialty Start Date End Date Dewayne Carrington MD [address] [place] [address] PCP - General 09/02/16 documented as of this encounter
--- OUTSIDE RECORDS SUMMARY | 2023-11-03 01:22 | XMS_ITS | Encounter Summary ---
Author Organization [facility] [place] [address] Care Team Providers Care Range Conservationist Name Role Phone Dewayne Carrington MD Primary Care Provider Reason for Visit * Auth/Cert Specialty Diagnoses / Procedures Referred By Conteddie t Referred To Contact Diagnoses persistent atrial fibrillation Procedures PRO CARDIOVERSION ELECTIVE ARRHYTHMIA EXTERNAL CARDIOVERSION-ELECTIVE (WRVU 2.25) Referral ID Status Reason Start Date Expiration Date Visits Re quested Visits Authorized [id number] 1 1 Encounter Details Date Type Department Care Team (Latest Contact Info) Description 10/23/2020 10:15 AM EDT - 10/23/2020 12:55 PM EDT Hospital Encounter [place] [address] [place] [address] Persistent atrial fibrillation; PAF (paroxysmal atrial fibrillation) Discharge Disposition: Home Social History Tobacco Use [...] Sign Reading Time Taken Comments Blood Pressure 114/69 10/23/2020 12:41 PM EDT Pulse 63 10/23/2020 12:41 PM EDT Temperature 36 ??C (96.8 ??F) 10/23/2020 11:46 AM EDT Respiratory Rate 16 10/23/2020 12:41 PM EDT Oxygen Saturation 99% 10/23/2020 12:41 PM EDT Inhaled Oxygen Concentration - - Weight - - Height - - Body Mass Index - - documented in this encounter Discharge Instructions * Patient Instructions* David Garner PA - 10/23/2020 11:49 AM EDT CARDIOVERSION INFORMATION What are the risks of cardioversion? Cardioversion is a frequently performed procedure with a low risk of serious side effects. Serious complications occur in less than one out of a hundred patients. These complications include: A very slow heartbeat (bradycardia) A very fast heartbeat (tachycardia) Stroke Pneumonia You may have redness, burning, stinging, or itching on the skin where the pads were placed. If you go home and are uncomfortable, there are several ointments that you can purchase over the counter touse on your skin. For example: Anesthetic ointment, such as Lanacaine Hydrocortisone 1% (steroid) cream in the form of Cortaid or Kericort Some patients report that applying ice packs to the pad sites decreases the discomfort. Call the cardiologists who performed the test if you need a prescription for a stronger medication. POST-CARDIOVERSION CARE Activity: Rest after the procedure. You may be sleepy for several hours. Be careful on the stairs during the remainder of the day; you may be unsteady on your feet. Do not smoke at home if you are alone for 24 hours following your procedure. Do not drive, operate machinery, drink alcoholic beverages, or make important decisions for 24 hours. The medications may change your reaction time or judgment without your awareness. Diet: Follow your regular diet as tolerated. If nausea occurs, start with clear liquids, and progress slowly to your regular diet. Medications: Your heart medications may not be the same after your cardioversion. Check with your doctor about what medicines to take. Follow-up care: If you have return of the symptoms associated with your abnormal heartbeat, contact your doctor. If you need a stronger medicine to treat your skin where the adhesive pads were placed, call the lamp cleaner street light spinneret person at . We will schedule a follow-up appointment with the lamp cleaner street light here, or you will be scheduled to see your local doctor soon. Any specific instructions that apply to you will be given to you prior to discharge from the hospital. If you have any questions, call the Cardiology Department at Thursday through Thursday 8:00 a.m. to 4:30 p.m. * Attachments The following attachments cannot be sent through Care Everywhere. * Cardioversion: Post-op (Panamanian) documented in this encounter Medications at Time of Discharge Medication Sig Dispensed Refills Start Date End Date cyanocobalamin, Vitamin B-12, (Vitamin B-12) 1,000 mcg [...] Take 5 mg by mouth daily. 03/18/2022 atorvastatin (LIPITOR) 80 mg Tablet Take 80 mg by mouth daily. 12/12/2020 lisinopril (PRINIVIL;ZESTRIL) 20 mg Tablet Take 1 tablet by mouth daily. 30 tablet 12 01/09/2014 03/18/2022 documented as of this encounter H&P Notes * David Garner PA - 10/23/2020 12:55 PM EDT Patient Name: Marquez Hendrix Patient Age: 70 y.o. Birthdate: 1950 Admit date: 10/23/2020 Attending Physician: Fantasma Matos MD Active Problem List: Patient Active Problem List Diagnosis ??? ASCVD (arteriosclerotic cardiovascular disease) Overview Note: ?? Heart catheterization in [facility] in 2007 with placement of a stent in an unspecified vessel ?? Repeat heart catheterization in 2008 with placement of stents to both the LAD and circumflex ?? Followup heart catheterization in 2008 showing stable results in both vessels ?? Recurrent chest discomfort in a somewhat atypical pattern beginning fall ?? Nuclear stress test at [facility] in [place], [place] May 02, 2013 during which he developed left shoulder and arm discomfort during submaximal exercise on the treadmill and after which he was converted to a pharmacologic test; nuclear imaging showed ejection fraction of 45% with a partially reversible inferior defect ?? Cath [facility] 05/13/2013: normal left main, mild diffuse disease throughout the LAD with an 80% mid stenosis representing a restenosis lesion, mild diffuse disease in the proximal obtuse marginal branch, and mild diffuse disease throughout the right coronary artery; status post 3.0 X 12 mm JON to 80%mid-LAD lesion (in-stent restenosis) ?? Heart catheterization [facility] January 06, 2014 showing normal left main, hazy 50% mid LAD stenosis, mild diffuse disease throughout the circumflex, and moderate diffuse disease in the proximal RCA with a totally occluded distal RCA with brisk flow via bridging collaterals; fractional flow reserveon the LAD 0.85 ?? Nuclear stress test [facility] August 2016 reportedly showing a small area of inferior ischemia (final report pending) ?? Echo 11/06/16 showing inferior HK with EF 49%; no valvular disease ??? Atrial fibrillation ??? Chronic pain ??? Diverticular disease ??? Dysphagia ??? Magnesium deficiency ??? Obstructive sleep apnea syndrome ??? Rib pain on right side ??? Pain in right wrist ??? Closed fracture of lower end of right radius with routine healing ??? Contusion of left knee ??? Typical atrial flutter Overview Note: ?? Occurred 06/08/13, lasted about 24 hours, and v rate about 80 (documented on ICD interrogation 07/18/14) ?? [id number] score = 3 ?? Patient initially reluctant to be anticoagulated as recommended ??? Atrial pacemaker lead displacement Overview Note: New finding at office follow up 04/10/2014 Plan lead reposition/replacement ??? ICD (implantable cardioverter-defibrillator), dual, in situ Overview Note: New Atrial electrode: Guidant Dextrus Model# 4126-53 cm Serial# [id number] ?? Bipolar, steroid-tipped, active-fixation IS-1 lead ?? [...] at 10 V: No Old Ventricular electrode: Forseva [place] Model# 0292 Serial# [id number] ?? Bipolar, steroid-tipped, active-fixation DF-4 lead ?? [...] Atrial electrode: Guidant Dextrus Model# 4136 Serial# [id number] ?? Bipolar, steroid-tipped, active-fixation IS-1 lead ?? Access: Axillary vein ?? Location Removed 04/17/2014 ?? Implanted: 01/10/2014 Pulse generator: Forseva Incepta Model# E162 Serial# [id number] ?? DDDR ICD ?? Location: Subcutaneous The [...] follow up and was replaced on 04/17/2014 ??? Hypertension ??? Hypomagnesemia ??? Sustained VT (ventricular tachycardia) ??? Depression Overview Note: --Treated with Lamictal. ??? Dermatitis ??? Irritant contact dermatitis ??? T2DM (type 2 diabetes mellitus) ??? Gastroesophageal reflux disease ??? IBS (irritable bowel syndrome) ??? Coronary atherosclerosis Overview Note: Overview: S/p PCI stent ??? Nephrolithiasis ??? Diabetes mellitus ??? HTN (hypertension) Overview Note: ??? Elevated cholesterol History of Present Illness: Marquez Hendrix is a 70 y.o. male with a history of paroxysmal atrial fibrillation, on metoprolol and anticoagulated on Xarelto, hx sustained monomorphic VT, s/p dual-chamber ICD implantation 01/10/2014, complicated by atrial lead dislodgement requiring atrial lead revision on 04/17/2014, who has had a longstanding, persistent burden of atrial fibrillation since May 2020, who presented todayfor elective direct-current cardioversion. Patient has not missed any doses of oral anticoagulation on Xarelto over at least preceding 3-4 week period. He took all his morning medications except for metformin, lisinopril and glipizide. A 12-lead EKG today showed ventricular paced rhythm 61 bpm with underlying atrial fibrillation withno significant EKG changes other than atrial fibrillation had replaced sinus rhythm. Review of Systems: Constitutional: - fatigue, - fever, - chills Respiratory: - shortness of breath, - cough, - apnea, - wheezing Cardiovascular: - chest pain, - palpitations, - unusual rates Gastrointestinal: - nausea, - vomiting, - abdominal pain, - diarrhea Neurological: - lightheadedness, - dizziness, - syncope, - weakness Psychiatric: - anxious PMH: History reviewed. No pertinent past medical history. Pertinent Medications: No current [facility]-ordered facility-administered medications on file. Current Outpatient Medications Ordered in [facility] Medication Sig Dispense Refill ??? lamoTRIgine (LaMICtal) 100 mg Tablet Take 50 mg by mouth daily. TAKES IN ADDITION TO 200 MG TAB ??? ferrous sulfate 324 mg (65 mg iron) Tablet, Delayed Release (E.C.) Take 324 mg by mouth daily. ??? KlonoPIN 1 mg Tablet Take by mouth 3 times daily as needed. ??? vilazodone (Viibryd) 40 mg Tablet Take 40 mg by mouth daily. ??? metoprolol succinate (TOPROL-XL) 100 mg Tablet Sustained Release 24 hr Take 150 mg by mouth 2 times daily. ??? CHOLECALCIFEROL, VITAMIN D3, 2,000 unit Capsule [...] Injector Inject 1.2 mg subcutaneously daily. ??? atorvastatin (LIPITOR) 80 mg Tablet Take 80 [...] mouth 2 times daily (with meals). ??? cyanocobalamin, Vitamin B-12, (Vitamin B-12) 1,000 mcg Tablet Take 1,000 mcg by mouth daily. ??? tacrolimus (PROTOPIC) 0.1 % Ointment Apply topically to buttocks twice daily for 6 weeks, repeat as needed 100 g 3 ??? BD ULTRA-FINE MINI PEN NEEDLE 31 gauge x 3/16 Needle INJECT ONCE DAILY DIRECTED 0 ??? FREESTYLE LITE STRIPS TEST THREE TIMES DAILY 0 ??? nitroGLYcerin (NITROSTAT) 0.[address] 0.4 mg under the tongue every 5 minutes as needed. Reported on 09/30/2016 Discharge Medication List as of 10/23/2020 12:17 PM CONTINUE these medications which have NOT CHANGED Details !! lamoTRIgine (LaMICtal) 100 mg Tablet Take 50 mg by mouth daily. TAKES IN ADDITION TO 200 MG TAB,Historical Med ferrous sulfate 324 mg (65 mg iron) Tablet, Delayed Release (E.C.) Take 324 mg by mouth daily., Historical Med KlonoPIN 1 mg Tablet Take by mouth 3 times daily as needed., VALERIE, Historical Med vilazodone (Viibryd) 40 mg Tablet Take 40 mg by mouth daily., Historical Med metoprolol succinate (TOPROL-XL) 100 mg Tablet Sustained Release 24 hr Take 150 mg by mouth 2 timesdaily., Historical Med CHOLECALCIFEROL, VITAMIN D3, 2,000 unit Capsule take 1 capsule by mouth daily, R-0, VALERIE, HistoricalMed !! lamoTRIgine (LAMICTAL) 200 mg Tablet 200 mg daily., R-0, Historical Med aspirin 81 mg Tablet, Delayed Release (E.C.) Take 81 mg by mouth daily., Historical Med rivaroxaban (XARELTO) 20 mg Tablet Take 1 tablet by mouth daily., Disp-30 tablet, R-11, Normal glipiZIDE (GLUCOTROL) 5 mg Tablet Take 5 mg by mouth daily., Historical Med MAGNESIUM CARBONATE ORAL Take 400 mg by mouth 3 times daily., Historical Med pantoprazole (PROTONIX) 40 mg Tablet, Delayed Release (E.C.) Take 40 mg by mouth daily., HistoricalMed liraglutide (VICTOZA) 0.6 mg/0.1 mL (18 mg/3 mL) Pen Injector Inject 1.2 mg subcutaneously daily., Historical Med atorvastatin (LIPITOR) 80 mg Tablet Take 80 mg by mouth daily., Historical Med traMADol (ULTRAM) 50 mg Tablet Take 50 mg by mouth daily as needed for Pain., Historical Med lisinopril (PRINIVIL;ZESTRIL) 20 mg Tablet Take 1 tablet by mouth daily., Disp- 30 tablet, R-12, Normal zolpidem (AMBIEN) 10 mg tablet Take 5 mg by mouth nightly as needed., Historical Med multivitamin capsule Take 1 capsule by mouth daily., Oral, DAILY, Until Discontinued, Historical Med LANCETS MISC by Misc.(Non-Drug; Combo Route) route., Misc.(Non-Drug; Combo Route), Until Discontinued, Historical Med metformin (GLUCOPHAGE) 1,000 mg tablet Take 1,000 mg by mouth 2 times daily (with meals)., Oral, 2 TIMES DAILY WITH MEALS, Until Discontinued, Historical Med cyanocobalamin, Vitamin B-12, (Vitamin B-12) 1,000 mcg Tablet Take 1,000 mcg by mouth daily., Historical Med tacrolimus (PROTOPIC) 0.1 % Ointment Apply topically to buttocks twice daily for 6 weeks, repeat asneeded, Disp-100 g,R-3 BD ULTRA-FINE MINI PEN NEEDLE 31 gauge x 3/16 Needle INJECT ONCE DAILY DIRECTED, R-0, VALERIE, Historical Med FREESTYLE LITE STRIPS TEST THREE TIMES DAILY, R-0, VALERIE, Historical Med nitroGLYcerin (NITROSTAT) 0.[address] 0.4 mg under the tongue every 5 minutes as needed.Reported on 09/30/2016, Historical Med !! - Potential duplicate medications found. Please discuss with provider. Family History: History reviewed. No pertinent family history. Social History: Social History Socioeconomic History ??? Marital status: Spouse name: Not on file ??? Number of children: Not on file ??? Years of education: Not on file ??? Highest education level: Not on file Occupational History ??? Not on file Tobacco Use ??? Smoking status: Current Every Day Smoker Years: 25.00 Types: e-Cigarettes ??? Smokeless tobacco: Never Used ??? Tobacco comment: using e cigarettes Vaping Use ??? Vaping Use: Every day ??? Start date: 12/19/2014 Substance and Sexual Activity ??? Alcohol use: No ??? Drug use: No ??? Sexual activity: Not on file Other Topics Concern ??? Not on file Social History Narrative ??? Not on file Social Determinants of Health Financial Resource Strain: ??? Difficulty of Paying Living Expenses: Food Insecurity: ??? Worried About Running Out of Food in the Last Year: ??? Ran Out of Food in the Last Year: Transportation Needs: ??? Lack of Transportation (Medical): ??? Lack of Transportation (Non-Medical): Physical Activity: ??? Days of Exercise per Week: ??? Minutes of Exercise per Session: Physical Exam: Vital signs: Vitals: 10/23/20 1200 10/23/20 1215 10/23/20 1225 10/23/20 1241 BP: 114/67 114/70 114/69 Pulse: 65 69 62 63 Resp: 17 13 16 16 Temp: TempSrc: SpO2: 100% 99% 99% General- No acute distress, laying comfortably in bed HEENT- Head atraumatic, normocephalic Skin- Warm and dry Neck- No JVD noted Cardiovascular- S1/S2 irregular rate and rhythm. No murmur, rub or gallop Lungs- Clear to auscultation bilaterally Extremities- Pulses equal bilaterally. No edema noted Neuro- A&Ox3 Labs: Lab Results Component Value Date WBC 7.4 07/14/2018 HGB 12.3 (L) 07/14/2018 HCT 40.1 (L) 07/14/2018 PLATELET 240 07/14/2018 No results for input(s): INR in the last 168 hours. Lab Results Component Value Date NA 141 10/23/2020 K 4.5 10/23/2020 CL 104 10/23/2020 BUN 25 (H) 10/23/2020 CREATININE 0.90 10/23/2020 MAGNESIUM 0.81 10/23/2020 Assessment: 1. Longstanding, persistent atrial fibrillation 2. Anticoagulation on Xarelto 3. Hx ICD for sustained monomorphic ventricular tachycardia 4. CAD s/p remote PCI 5. HTN 6. HLD 7. TOOTIE non-compliant on CPAP Plan: - Proceed with DCCV. Risk of procedure discussed in detail prior to informed written consent obtained. Continue Xarelto. Pre-DCCV device interrogation confirmed atrial fibrillation. - Recommend CPAP compliance - Follow-up to be determined based on results of DCCV. - NPO since last night. MAXIMO Avila 10/23/2020 Attending: Fantasma Matos MD 10/23/2020 Service Pager: [phone] documented in this encounter Miscellaneous Notes * Op Note - Fantasma Matos MD - 10/23/2020 11:35 AM EDT [facility] Operative Note Patient Name: Marquez Hendrix : [id number] MR#: [id number] Case Date: 10/23/2020 Surgeon: Surgeon(s) and Role: * Fantasma Matos MD - Primary * David Garner PA-C - Freight Hustler Preoperative diagnosis: persistent atrial fibrillation Postoperative diagnosis: persistent atrial fibrillation Marquez Hendrix is a 70 y.o. male referred by David Garner PA-C for direct electrical cardioversion for treatment of symptomatic persistent atrial fibrillation. Procedures Performed: 1. External direct current interrogation 2. Tina procedure dual-chamber ICD interrogation and reprogamming Anesthesia: MAC Procedure Description: Pt brought in fasting condition. Continuous anticoagulation x > 21 days confirmed. Time out performed. Pt sedated w/ 40 mg of IV propofol by Anesthesia team. When appropriate, 200J of R-wave synchronized energy delivered via anteroposterior pads w/ application of ~ 10 lbs pressure. W/ prompt conversion to an initially A-paced, V-paced and then A-paced, V sensed rhythm. Post cardioversion interrogation confirmed conversion. DEVICE INTERROGATION: Device type: [place] [employer] Incepta ICD E 162 [id number] implanted 01/10/2014 Programmed: DDDR w/ mode switch to VDIR @ atrial rates > 170 BPM Battery status: OK, 3 yrs est longevity Lead information: LEAD Sensing (mV) Capture Threshold (V@0.5 ms) Pacing Impedance (Ohms) Right atrium 3 0.7 720 Right ventricle 8 0.7 602 Shock circuit 75 Events: notable for attempted ATP of AF w/ rapid ventricular response ~ 156 BPM. (lower limit of detection 155). That was reprogrammed that to 175 BPM. Disposition: awakened from anesthesia, extubated and taken to the recovery room in a stable condition, having suffered no apparent untoward event. Condition: doing well without problems Attestation: Case Date: 10/23/2020 I performed this procedure without the involvement of a resident. Fantasma Matos MD 10/23/2020 documented in this encounter Plan of Treatment Upcoming Encounters Date Type Department Care Team (Late st Contact Info) Description 12/18/2023 10:00 AM EDT Hospital Encounter Non[place] [address] Arrived documented as of this encounter Procedures Procedure Name Priority Date/Time Associated Diagnosis Comments EKG 12-LEAD STAT 10/23/2020 11:54 AM EDT PAF (paroxysmal atrial fibrillation) Cardioversion Elective Arrhythmia External (50754) 10/23/2020 11:25 AM EDT Persistent atrial fibrillation CARDIOVERSION-OR Routine 10/23/2020 10:2 3 AM EDT Persistent atrial fibrillation documented in this encounter Results * EKG 12 Lead (10/23/2020 11:54 AM EDT) Ventricular rate 63 BPM MUSE SYSTEM Atrial Rate 63 BPM MUSE SYSTEM P-R Interval 284 ms MUSE SYSTEM QRS Duration 108 ms MUSE SYSTEM Q-T Interval 462 ms MUSE SYSTEM QTC Calculated (Bezet) 472 ms MUSE SYSTEM Calculated P [place] 49 degrees MUSE SYSTEM Calculated R [place] -51 degrees MUSE SYSTEM INTERPRETATION Sinus rhythm with 1st degree A-V block Left axis deviation Low voltage QRS Inferior infarct (cited on or before 23-OCT-2020) Cannot rule out Anterior infarct (cited on or before 06-NOV-2016) Abnormal ECG When compared with ECG of 23-OCT-2020 09:23, Sinus rhythm has replaced Atrial fibrillation Nonspecific T wave abnormality, improved in Lateral leads Confirmed by MD Davin, Connor ([id number]) on 10/23/2020 12:10:37 PM MUSE SYSTEM 10/23/2020 11:5 4 AM EDT 10/23/2020 12:10 PM EDT Fantasma Matos MD ECG ORDERABLES MUSE SYSTEM documented in this encounter Visit Diagnoses Diagnosis Persistent atrial fibrillation Atrial fibrillation PAF (paroxysmal atrial fibrillation) Atrial fibrillation documented in this encounter Administered Medications Inactive Administered Medications - up to 3 most recent administrations Medication Order MAR Action Action Date Dose Rate Site lactated ringers infusion 1,000 mL, at 100 mL/hr, Intravenous, CONTINUOUS, Starting on Thu10/23/20 at 1115, Until Thu10/23/20 at 1245, Day of Surgery (Day of Procedure) New Bag 10/23/2020 11:19 AM EDT 1,000 mLs 100 mL/hr lidocaine (Xylocaine) 1% (10 mg/mL) injection 3 mg 3 mg (0.3 mL), Subcutaneous, ONCE PRN, 1 dose, Starting on Thu10/23/20 at 1050, Until Thu10/23/20 at 1119, for discomfort with PIV insertion, Day of Surgery (Day of Procedure), Routine Given 10/23/2020 11:19 AM EDT 3 mg lidocaine (Xylocaine) 1% (10 mg/mL) injection 3 mg 3 mg (0.3 mL), Subcutaneous, ONCE PRN, 1 dose, Starting on Thu10/23/20 at 1148, Until Thu10/23/20 at 1455, for discomfort with PIV insertion, Routine sodium chloride 0.9 % (flush) flush 5 mL 5 mL, Intravenous, 2 TIMES DAILY, First dose on Thu10/23/20 at 1215, Until Discontinued, Routine sodium chloride 0.9 % (flush) flush 5-20 mL 5-20 mL, Intravenous, EVERY 1 MIN PRN, Starting on Thu10/23/20 at 1148, Until Thu10/23/20 at 1455, flush, Flush pertains to all indwelling lines. Flush per protocol found in the job aid using the link provided on this medication record., Routine documented in this encounter Active and Recently Administered Medications Times are shown in EDT. Scheduled Medication Order 10/21/2020 10/22/2020 10/23/2020 sodium chloride 0.9 % (flush) flush 5 mL 5 mL, Intravenous, 2 TIMES DAILY, First dose on Thu10/23/20 at 1215, Until Discontinued, Routine 1215 (Due) Continuous Medication Order 10/21/2020 10/22/2020 10/23/2020 lactated ringers infusion (CANCELED) 1,000 mL, at 100 mL/hr, Intravenous, CONTINUOUS, Starting on Thu10/23/20 at 1115, Until Thu10/23/20 at 1245, Day of Surgery (Day of Procedure) 1119 (New Bag - Prov ider: Marii Beck RN) PRN Medication Order 10/21/2020 10/22/2020 10/23/2020 lidocaine (Xylocaine) 1% (10 mg/mL) injection 3 mg (COMPLETED) 3 mg (0.3 mL), Subcutaneous, ONCE PRN, 1 dose, Starting on Thu10/23/20 at 1050, Until Thu10/23/20 at 1119, for discomfort with PIV insertion, Day of Surgery (Day of Procedure), Routine 1119 (Given - Provid er: Marii Beck RN) lidocaine (Xylocaine) 1% (10 mg/mL) injection 3 mg 3 mg (0.3 mL), Subcutaneous, ONCE PRN, 1 dose, Starting on Thu10/23/20 at 1148, Until Thu10/23/20 at 1455, for discomfort with PIV insertion, Routine sodium chloride 0.9 % (flush) flush 5-20 mL 5-20 mL, Intravenous, EVERY 1 MIN PRN, Starting on Thu10/23/20 at 1148, Until Thu10/23/20 at 1455, flush, Flush pertains to all indwelling lines. Flush per protocol found in the job aid using the link provided on this medication record., Routine documented in this encounter Care Teams Range Conservationist Relationship Specialty Start Date End Date Dewayne Carrington MD [address] [place] [id number] PCP - General 09/02/16 documented as of this encounter
--- OUTSIDE RECORDS SUMMARY | 2023-11-03 01:22 | XMS_ITS | Encounter Summary ---
[place] [address] Care Team Providers Care Guitar Technician Name Role Phone Dewayne Carrington MD Primary Care Provider [phone] Encounter Details Date Type Department Care Team (Late st Contact Info) Description 12/07/2020 Orders Only Cardiology at [address] [address] Sita Myers RN Sustained VT (ventricular tachycardia) Social History Tobacco Use Types Packs/Day Years [...] AM EDT Hospital Encounter [place] [address] Arrived documented as of this encounter Visit Diagnoses Diagnosis Sustained VT (ventricular tachycardia) Paroxysmal ventricular tachycardia documented in this encounter Care Teams Guitar Technician Relationship Specialty Start Date End Date Dewayne Carrington MD [address] [place] [address] [place] [address] PCP - General 09/02/16 documented as of this encounter
--- OUTSIDE RECORDS SUMMARY | 2023-11-03 01:22 | XMS_ITS | Encounter Summary ---
[place] [address] Care Team Providers Care Casket Assembler Name Role Phone Dewyane Carrington MD Primary Care Provider [phone] Encounter Details Date Type Department Care Team (Late st Contact Info) Description 09/20/2020 Orders Only Cardiology at [address] [address] Social History Tobacco Use Types Packs/Day Years [...] AM EDT Hospital Encounter [place] [address] Arrived documented as of this encounter Procedures Procedure Name Priority Date/Time Associated Diagnosis Comments CARDIAC DEVICE CHECK - REMOTE DEVICE INITIATED Routine 09/20/2020 12:41 AM EDT documented in this encounter Results * Cardiac device check - Remote Device Initiated (09/20/2020 12:41 AM EDT) Pathologist [facility] Date Time Interrogation Session [id number] IDCO Type Interrogation Session Remote Device Initiated IDCO Clinic Name [facility] Shirin PMC IDCO Battery Date Time of Measurements [id number] IDCO Battery Status Beginning of Service IDCO Battery Remaining Longevity 36 mo IDCO Battery Remaining Percentage 42 % IDCO Capacitor Last Charge Date Time [id number] IDCO Capacitor Charge Time 11.2 s IDCO Capacitor Charge Type Reformation IDCO Capacitor Last Charge Date Time IDCO Capacitor Charge Time 3.8 s IDCO Capacitor Charge Energy 21 J IDCO Capacitor Charge Type Shock IDCO Episode Identifier [id number] IDCO Episode Date Time IDCO Episode Type Category Periodic EGM IDCO Episode Vendor Type Category APMRT IDCO Episode Detection And Therapy Details Presenting EGM IDCO Episode Identifier V IDCO Episode Date Time IDCO Episode Type Category VT IDCO Episode Vendor Type Category NSVT IDCO Episode Type Induced Flag NO IDCO Episode Detection Interval Ventricular 458 ms IDCO Episode Duration 9 s IDCO [...] Flag NO IDCO Episode Detection Interval Ventricular 411 ms IDCO Episode Duration 7 s IDCO Episode Detection And Therapy Details NonSustV IDCO Episode Identifier V IDCO Episode Date Time IDCO Episode Type Category VT IDCO Episode Vendor Type Category NSVT IDCO Episode Type Induced Flag NO IDCO Episode Detection Interval Ventricular 423 ms IDCO Episode Duration 6 s IDCO Episode Detection And Therapy Details NonSustV IDCO Episode Identifier [id number] IDCO Episode Date Time IDCO Episode Type Category AT/AF IDCO Episode Vendor Type Category ATR IDCO Episode Detection Interval Atrial 189 ms IDCO Episode Detection And Therapy Details ATR IDCO Episode Statistic Type Category VF IDCO Episode Statistic Vendor Type Category VF IDCO Episode Statistic Recent Count 0 IDCO Episode Statistic Recent Date Time Start 20200918 IDCO Episode Statistic Recent Date Time End 20200920 IDCO Episode Statistic Type Category VT IDCO Episode Statistic Vendor Type Category VT IDCO Episode Statistic Recent Count 0 IDCO Episode Statistic Recent Date Time Start 20200918 IDCO Episode Statistic Recent Date Time End 20200920 IDCO Episode Statistic Type Category VT IDCO Episode Statistic Vendor Type Category VT-1 IDCO Episode Statistic Recent Count 0 IDCO Episode Statistic Recent Date Time Start 20200918 IDCO Episode Statistic Recent Date Time End 20200920 IDCO Episode Statistic Type Category Monitor IDCO Episode Statistic Vendor Type Category IDCO Episode Statistic Recent Count 0 IDCO Episode Statistic Recent Date Time Start 20200918 IDCO Episode Statistic Recent Date Time End 20200920 IDCO Episode Statistic Type Category Other IDCO Episode Statistic Vendor Type Category IDCO Episode Statistic Recent Count 0 IDCO Episode Statistic Recent Date Time Start 20200918 IDCO Episode Statistic Recent Date Time End 20200920 IDCO Episode Statistic Type Category VT IDCO Episode Statistic Vendor Type Category NSVT IDCO Episode Statistic Recent Count 4 IDCO Episode Statistic Recent Date Time Start 20200918 IDCO Episode Statistic Recent Date Time End 20200920 IDCO Episode Statistic Type Category AT/AF IDCO Episode Statistic Vendor Type Category ATR IDCO Episode Statistic Recent Count 0 IDCO Episode Statistic Recent Date Time Start 20200918 IDCO Episode Statistic Recent Date Time End 20200920 IDCO Albaro Setting AT Mode Switch Mode [...] E162 IDCO Implantable Pulse Generator Serial Number [id number] IDCO Implantable Pulse Generator Childcare Director [place] Scientific IDCO Implantable Pulse Generator Implant Date 20140110 IDCO Implantable Lead Model 4136 IDCO Implantable Lead Serial Number [id number] IDCO Implantable Lead Childcare Director Guidant IDCO Implantable Lead Implant Date 20130421 IDCO Implantable Lead Polarity Type Bipolar Lead IDCO Implantable Lead Location Right Atrium IDCO Implantable Lead Model 0292 IDCO Implantable Lead Serial Number [id number] IDCO Implantable Lead Childcare Director [place] Scientific IDCO Implantable Lead Implant Date IDCO Implantable Lead Location Right Ventricle IDCO Lead Channel Measurements Date and Time Start 20190921 IDCO Lead Channel Measurements Date and Time End 20200919 IDCO Lead Channel Sensing Intrinsic Amplitude Mean 1.4 mV IDCO Lead Channel Sensing Polarity Bipolar IDCO Lead Channel Pacing Threshold Amplitude 0.7 V IDCO Lead Channel Pacing Threshold Pulse Width 0.5 ms IDCO Lead Channel Pacing Threshold Measurement Method Casserole Preparer Manual IDCO Lead Channel Pacing Threshold Polarity Bipolar IDCO Lead Channel Impedance Value 741 ohms IDCO Lead Channel Impedance Polarity Bipolar IDCO Lead Channel Measurements Date and Time Start 20200918 IDCO Lead Channel Measurements Date and Time End 20200919 IDCO Lead Channel Sensing Intrinsic Amplitude Mean 13.4 mV IDCO Lead Channel Sensing Polarity Bipolar IDCO Lead Channel Pacing Threshold Amplitude 0.7 V IDCO Lead Channel Pacing Threshold Pulse Width 0.5 ms IDCO Lead Channel Pacing Threshold Measurement Method Casserole Preparer Manual IDCO Lead Channel Pacing Threshold Polarity Bipolar IDCO Lead Channel Impedance Value 681 ohms IDCO Lead Channel Impedance Polarity Bipolar IDCO Lead High Voltage Channel Date Time 20200919 IDCO Lead High Voltage Channel Impedance 82 ohms IDCO Lead High Voltage Channel Measurement Type Low Voltage Pulse IDCO Statistic Date Time Start 20200918 IDCO Statistic Date Time End 20200920 IDCO Albaro Statistic Date Time Start 20200918 IDCO Albaro Statistic Date Time End 20200920 IDCO Albaro Statistic RA Percent Paced 0 % IDCO Albaro Statistic RV Percent Paced 17 % IDCO Therapy Statistic Recent Date Time Start 20200918 IDCO Therapy Statistic Recent Date Time End 20200920 IDCO Therapy Statistic Recent Shocks Delivered 0 IDCO Therapy Statistic Total Date Time Start 20140110 IDCO Therapy Statistic Total Date Time End 20200920 IDCO Therapy Statistic Total Shocks Delivered 2 IDCO Therapy Statistic Recent Shocks Aborted 0 IDCO Therapy Statistic Total Shocks Aborted 0 IDCO Therapy Statistic Recent ATP Delivered 0 IDCO Therapy Statistic Total ATP Delivered 7 IDCO Anatomical Region Laterality Modality Other 09/20/2020 12:4 1 AM EDT Physician Cardiology IMPLANTABLE CARD IAC DEVICE documented in this encounter Visit Diagnoses Not on filedocumented in this encounter Care Teams Casket Assembler Relationship Specialty Start Date End Date Dewayne Carrington MD [address] [place] [address] [place] [address] PCP - General 09/02/16 documented as of this encounter
--- OUTSIDE RECORDS SUMMARY | 2023-11-03 01:22 | XMS_ITS | Encounter Summary ---
Author Organization [facility] [place] [address] Care Team Providers Care Associate Broker Name Role Phone Dewayne Carrington MD Primary Care Provider [phone] Reason for Visit * Auth/Cert Specialty Diagnoses / Procedures Referred By Rosa t Referred To Contact Diagnoses persistent atrial fibrillation Procedures PRO CARDIOVERSION ELECTIVE ARRHYTHMIA EXTERNAL CARDIOVERSION-ELECTIVE (WRVU 2.25) Referral ID Status Reason Start Date Expiration Date Visits Re quested Visits Authorized [id number] 1 1 Encounter Details Date Type Department Care Team (Latest Contact Info) Description 10/23/2020 8:50 AM EDT Laboratory Appointment Lab [address] [place] [address] Persistent atrial fibrillation Social History Tobacco Use Types Packs/Day Years [...] AM EDT Hospital Encounter Non-Invasive [place] [address] Arrived documented as of this encounter Procedures Procedure Name Priority Date/Time Associated Diagnosis Comments HC MAGNESIUM, SERUM Routine 10/23/2020 9:05 AM EDT Persistent atrial fibrillation BASIC METABOLIC PANEL (NON-FASTING) Routine 10/23/2020 9:05 AM EDT Persistent atrial fibrillation documented in this encounter Results * (ABNORMAL) Basic Metabolic Panel (non-fasting) (10/23/2020 9:05 AM EDT) Glucose Lvl 263(H) 65 - 199 mg/dL [facility] Comment:Diabetes: >=200 mg/d L plus symptoms BUN 25(H) 10 - 20 mg/dL [facility] Creatinine 0.90 0.80 - 1.50 mg/dL [facility] Sodium 141 135 - 145 mmol/L [facility] Potassium 4.5 3.5 - 5.0 mmol/L [facility] Comment: Please note: ??Patients with WBC >100,000 may have falsely elevated Potassium levels. ??For accurate Potassium quantification in these patients send serum separator tube (gold top) for subsequent determinations. ??Contact the Clinical Chemistry Laboratory if there are any questions. Chloride 104 98 - 107 mmol/L [facility] CO2 27 22 - 31 mmol/L [facility] Anion Gap 10 5 - 15 mmol/L [facility] Calcium 9.5 8.5 - 10.5 mg/dL [facility] Estimated GFR 86 >=60 mL/min/1. 73 m?? [facility] Comment: This patient? s estimated glomerular filtration rate (eGFR) is between 86 mL/min/1.73 m2 (patients with less muscle mass per kg body weight) and 99 mL/min/1.73 m2 (patients with more muscle mass [...] and symptoms in addition to eGFR. Blood 10/23/2020 9:05 AM EDT 10/23/2020 9:09 AM EDT Narrative Resulting Agency Comment Spec In Lab Irena Daly MD CHEMISTRY ORDERABLES Performing Organization Address [facility]/ZIP Co de Phone Number [facility] [place] [address] * Magnesium (10/23/2020 9:05 AM EDT) Magnesium 0.81 0.69 - 1.07 mmol/L [facility] Blood 10/23/2020 9:05 AM EDT 10/23/2020 9:09 AM EDT Narrative Resulting Agency Comment Spec In Lab Irena Daly MD CHEMISTRY ORDERABLES Performing Organization Address [facility] Co de Phone Number [facility] [place] [address] documented in this encounter Visit Diagnoses Diagnosis Persistent atrial fibrillation Atrial fibrillation documented in this encounter Care Teams Associate Broker Relationship Specialty Start Date End Date Dewayne Carrington MD [address] [place] [address] PCP - General 09/02/16 documented as of this encounter
--- OUTSIDE RECORDS SUMMARY | 2023-11-03 01:22 | XMS_ITS | Encounter Summary ---
[place] [address] Care Team Providers Care Gravity Prospecting Observer Helper Name Role Phone Dewayne Carrington MD Primary Care Provider [phone] Encounter Details Date Type Department Care Team (Late st Contact Info) Description 11/22/2020 Orders Only Cardiology at [address] [address] Social History Tobacco Use Types Packs/Day Years [...] AM EDT Hospital Encounter Non-Invasive [place] [address] Arrived documented as of this encounter Procedures Procedure Name Priority Date/Time Associated Diagnosis Comments CARDIAC DEVICE CHECK - REMOTE DEVICE INITIATED Routine 11/22/2020 12:42 AM EDT documented in this encounter Results * Cardiac device check - Remote Device Initiated (11/22/2020 12:42 AM EDT) Date Time Interrogation Session IDCO Type Interrogation Session Remote Device Initiated IDCO Clinic Name [facility] IDCO Battery Date Time of Measurements IDCO Battery Status Beginning of Service IDCO Battery Remaining Longevity 48 mo IDCO Battery Remaining Percentage 57 % IDCO Capacitor Last Charge Date Time IDCO Capacitor Charge Time 11.3 s IDCO Capacitor Charge Type Reformation IDCO Capacitor Last Charge Date Time IDCO Capacitor Charge Time 3.8 s IDCO Capacitor Charge Energy 21 J IDCO Capacitor Charge Type Shock IDCO Episode Identifier [id number] IDCO Episode Date Time IDCO Episode Type Category Periodic EGM IDCO Episode Vendor Type Category APMRT IDCO Episode Detection And Therapy Details Presenting EGM IDCO Episode Identifier [id number] IDCO Episode Date Time IDCO Episode Type Category Other IDCO Episode Vendor Type Category XANDER IDCO Episode Detection Interval Ventricular 571 ms IDCO Episode Duration 34 s IDCO Episode Detection And Therapy Details IDCO Episode Identifier [id number] IDCO Episode Date Time IDCO Episode Type Category AT/AF IDCO Episode Vendor Type Category ATR IDCO Episode Detection Interval Atrial 283 ms IDCO Episode Duration 105,208 s IDCO Episode Detection And Therapy Details ATR IDCO Episode Identifier [id number] IDCO Episode Date Time IDCO Episode Type Category Other IDCO Episode Vendor Type Category XANDER IDCO Episode Detection Interval Ventricular 659 ms IDCO Episode Duration 43 s IDCO Episode Detection And Therapy Details IDCO Episode Identifier [id number] IDCO Episode Date Time IDCO Episode Type Category Other IDCO Episode Vendor Type Category XANDER IDCO Episode Detection Interval Ventricular 1,017 ms IDCO Episode Duration 60 s IDCO Episode Detection And Therapy Details IDCO Episode Identifier [id number] IDCO Episode Date Time IDCO Episode Type Category Other IDCO Episode Vendor Type Category XANDER IDCO Episode Detection Interval Ventricular 1,000 ms IDCO Episode Duration 58 s IDCO Episode Detection And Therapy Details IDCO Episode Identifier [id number] IDCO Episode Date Time IDCO Episode Type Category Other IDCO Episode Vendor Type Category XANDER IDCO Episode Detection Interval Ventricular 938 ms IDCO Episode Duration 52 s IDCO Episode Detection And Therapy Details IDCO Episode Identifier [id number] IDCO Episode Date Time [id number] IDCO Episode Type Category Other IDCO Episode Vendor Type Category XANDER IDCO Episode Detection Interval Ventricular 857 ms IDCO Episode Duration 50 s IDCO Episode Detection And Therapy Details IDCO Episode Identifier [id number] IDCO Episode Date Time [id number] IDCO Episode Type Category Other IDCO Episode Vendor Type Category XANDER IDCO Episode Detection Interval Ventricular 714 ms IDCO Episode Duration 38 s IDCO Episode Detection And Therapy Details IDCO Episode Identifier [id number] IDCO Episode Date Time [id number] IDCO Episode Type Category Other IDCO Episode Vendor Type Category XANDER IDCO Episode Detection Interval Ventricular 741 ms IDCO Episode Duration 39 s IDCO Episode Detection And Therapy Details IDCO Episode Identifier [id number] IDCO Episode Date Time [id number] IDCO Episode Type Category Other IDCO Episode Vendor Type Category XANDER IDCO Episode Detection Interval Ventricular 1,017 ms IDCO Episode Duration 56 s IDCO Episode Detection And Therapy Details IDCO Episode Identifier [id number] IDCO Episode Date Time [id number] IDCO Episode Type Category Other IDCO Episode Vendor Type Category XANDER IDCO Episode Detection Interval Ventricular 952 ms IDCO Episode Duration 55 s IDCO Episode Detection And Therapy Details IDCO Episode Statistic Type Category VF IDCO Episode Statistic Vendor Type Category VF IDCO Episode Statistic Recent Count 0 IDCO Episode Statistic Recent Date Time Start 20201023 IDCO Episode Statistic Recent Date Time End 20201122 IDCO Episode Statistic Type Category VT IDCO Episode Statistic Vendor Type Category VT IDCO Episode Statistic Recent Count 0 IDCO Episode Statistic Recent Date Time Start 20201023 IDCO Episode Statistic Recent Date Time End 20201122 IDCO Episode Statistic Type Category VT IDCO Episode Statistic Vendor Type Category VT-1 IDCO Episode Statistic Recent Count 0 IDCO Episode Statistic Recent Date Time Start 20201023 IDCO Episode Statistic Recent Date Time End 20201122 IDCO Episode Statistic Type Category Monitor IDCO Episode Statistic Vendor Type Category IDCO Episode Statistic Recent Count 0 IDCO Episode Statistic Recent Date Time Start 20201023 IDCO Episode Statistic Recent Date Time End 20201122 IDCO Episode Statistic Type Category Other IDCO Episode Statistic Vendor Type Category IDCO Episode Statistic Recent Count 0 IDCO Episode Statistic Recent Date Time Start 20201023 IDCO Episode Statistic Recent Date Time End 20201122 IDCO Episode Statistic Type Category VT IDCO Episode Statistic Vendor Type Category NSVT IDCO Episode Statistic Recent Count 0 IDCO Episode Statistic Recent Date Time Start 20201023 IDCO Episode Statistic Recent Date Time End 20201122 IDCO Episode Statistic Type Category AT/AF IDCO Episode Statistic Vendor Type Category ATR IDCO Episode Statistic Recent Count 1 IDCO Episode Statistic Recent Date Time Start 20201023 IDCO Episode Statistic Recent Date Time End 20201122 IDCO Albaro Setting AT Mode Switch Mode [...] Status Active IDCO Zone Setting Detection Interval 343 ms IDCO Zone Setting ATP Type Burst+Scan [...] E162 IDCO Implantable Pulse Generator Serial Number [id number] IDCO Implantable Pulse Generator Cardiopulmonary Technologist [place] [employer] IDCO Implantable Pulse Generator Implant Date 20140110 IDCO Implantable Lead Model 4136 IDCO Implantable Lead Serial Number [id number] IDCO Implantable Lead Cardiopulmonary Technologist Guidant IDCO Implantable Lead Implant Date 20130421 IDCO Implantable Lead Polarity Type Bipolar Lead IDCO Implantable Lead Location Right Atrium IDCO Implantable Lead Model 0292 IDCO Implantable Lead Serial Number [id number] IDCO Implantable Lead Cardiopulmonary Technologist [place] [employer] IDCO Implantable Lead Implant Date IDCO Implantable Lead Location Right Ventricle IDCO Lead Channel Measurements Date and Time Start 20201023 IDCO Lead Channel Measurements Date and Time End 20201121 IDCO Lead Channel Sensing Intrinsic Amplitude Mean 4.1 mV IDCO Lead Channel Sensing Polarity Bipolar IDCO Lead Channel Pacing Threshold Amplitude 0.9 V IDCO Lead Channel Pacing Threshold Pulse Width 0.5 ms IDCO Lead Channel Pacing Threshold Measurement Method Fisheries Inspector Manual IDCO Lead Channel Pacing Threshold Polarity Bipolar IDCO Lead Channel Impedance Value 756 ohms IDCO Lead Channel Impedance Polarity Bipolar IDCO Lead Channel Measurements Date and Time Start 20201023 IDCO Lead Channel Measurements Date and Time End 20201121 IDCO Lead Channel Sensing Intrinsic Amplitude Mean 15.5 mV IDCO Lead Channel Sensing Polarity Bipolar IDCO Lead Channel Pacing Threshold Amplitude 0.7 V IDCO Lead Channel Pacing Threshold Pulse Width 0.5 ms IDCO Lead Channel Pacing Threshold Measurement Method Fisheries Inspector Manual IDCO Lead Channel Pacing Threshold Polarity Bipolar IDCO Lead Channel Impedance Value 687 ohms IDCO Lead Channel Impedance Polarity Bipolar IDCO Lead High Voltage Channel Date Time 20201121 IDCO Lead High Voltage Channel Impedance 85 ohms IDCO Lead High Voltage Channel Measurement Type Low Voltage Pulse IDCO Statistic Date Time Start 20201023 IDCO Statistic Date Time End 20201122 IDCO Albaro Statistic Date Time Start 20201023 IDCO Albaro Statistic Date Time End 20201122 IDCO Albaro Statistic RA Percent Paced 2 % IDCO Albaro Statistic RV Percent Paced 1 % IDCO Therapy Statistic Recent Date Time Start 20201023 IDCO Therapy Statistic Recent Date Time End 20201122 IDCO Therapy Statistic Recent Shocks Delivered 0 IDCO Therapy Statistic Total Date Time Start 20140110 IDCO Therapy Statistic Total Date Time End 20201122 IDCO Therapy Statistic Total Shocks Delivered 2 IDCO Therapy Statistic Recent Shocks Aborted 0 IDCO Therapy Statistic Total Shocks Aborted 0 IDCO Therapy Statistic Recent ATP Delivered 0 IDCO Therapy Statistic Total ATP Delivered 10 IDCO Anatomical Region Laterality Modality Other 11/22/2020 12:4 2 AM EDT Physician Cardiology IMPLANTABLE CARD IAC DEVICE documented in this encounter Visit Diagnoses Not on filedocumented in this encounter Care Teams Gravity Prospecting Observer Helper Relationship Specialty Start Date End Date Dewayne Carrington MD [address] [place] [address] PCP - General 09/02/16 documented as of this encounter
--- OUTSIDE RECORDS SUMMARY | 2023-11-03 01:22 | XMS_ITS | Encounter Summary ---
Author Organization [facility] Address [facility] [place] [address] Care Team Providers Care Line Crew Supervisor Name Role Phone Dewayne Carrington MD Primary Care Provider [phone] Encounter Details Date Type Department Care Team ([facility] st Contact Info) Description 09/24/2020 [place] [id number] Kylee Bowling PA [facility] [place] [address] Social History Tobacco Use Types Packs/Day Years [...] as of this encounter Progress Notes * Kylee Bowling PA - 09/24/2020 7:53 AM EDT Images from the original note were not included. Outpatient remote interrogation report: See full report as a linked pdf document Date of transmission: 09/24/20 Device equipment driver: BSI Device type: DC ICD H/o afib on Xarelto, metoprolol succinate 250mg po daily Presenting rhythm: AF/VS AP 0% INSTALLATION HELPER 19% Battery: 3 years Episodes: 19 tachy VT-1 09/23/20 1638 ATP x 6 09/23/20 1712 ATP x 3V rate 156bpm NSVT 09/23/20 1639 09/23/20 1640 09/23/20 1641 09/23/20 1646 09/23/20 1649 09/23/20 1649 09/23/20 1655 09/23/20 1656 09/23/20 1659 100% AF Episodes of sustained VT with successful ATP termination. Also considered atrial fibrillation/flutter with rapid ventricular. However, given regularity of ventricular rhythm, widening of shock EGM when compared to baseline/presenting EGM, and history of VT, most likely sustained VT. Discussed EGMs with Dr. Matos. 8:40 AM Attempted to call patient on home phone, no answer, left VM with Device Clinic number. Willattempt another call this afternoon to discuss 1) symptoms, 2) confirm current rx, 3) determine follow-up (last seen by Dr. Molina on 05/23/20 at [facility]) MAXIMO Bo 09/24/2020 8:45 AM Cc: Shaheen Molina MD Addendum: Patient returned call from this morning. He reports that lately he has experienced shortness of breath and weakness on exertion. He also notes that yesterday while on a walk he felt that he had to slow down he attributed this to the heat and humidity. However he did experience more shortness of breath than usual. He also notes that the other day while walking he experienced both shortness of breath and a brief episode of chest pain. He has not had chest pain since that time despite daily walks.After his walk yesterday, he was sitting in a chair for a while and experienced a fluttering sensation. Then later that night he was sitting on a rock while talking to a friend at approximately 830 or 9:00, while sitting on the wall, he suddenly felt lightheaded and fell to his side. He denies hitting his head. He denies loss of consciousness. He denies palpitations at that time. He reports 3 episodes of diarrhea yesterday and explains that he usually experiences constipation alternating with loose bowel movements. His pulse today is 66 and his blood pressure is 105/65 per home blood pressurecuff. He saw David Garner PA-C on September 18 although the details of this encounter have not been finalized. The patient reports that they agreed at that time to pursue cardioversion. Today, I recommended that he increase his metoprolol succinate from 250 mg daily to 150 mg twice daily. I will also follow-up with Mr. Garner regarding the status of his cardioversion order. I advised him to pursue adequate hydration in the setting of recent heat and humidity as well as diarrhea. Furthermore, I advised him that in the setting of recurrent lightheadedness, progressive shortness of breath, sustained palpitations, or onset of chest discomfort, he should seek medical evaluation. He verbalized understanding to this plan. MAXIMO Bo 11:14 AM 09/24/20 Cc: Shaheen Molina MD and David Garner PA-C documented in this encounter Plan of Treatment Upcoming Encounters Date Type Department Care Team (Late st Contact Info) Description 12/18/2023 10:00 AM EDT Hospital Encounter Non-[place]vasive [place] [address] Arrived documented as of this encounter Visit Diagnoses Not on filedocumented in this encounter Care Teams Line Crew Supervisor Relationship Specialty Start Date End Date Dewayne Carrington MD [address] [place] [address] [place] [address] PCP - General 09/02/16 documented as of this encounter
--- OUTSIDE RECORDS SUMMARY | 2023-11-03 01:22 | XMS_ITS | Encounter Summary ---
Author Organization [facility] [place] [address] Care Team Providers Care Hand Candy Molder Name Role Phone Dewayne Carrington MD Primary Care Provider [phone] Reason for Visit * Auth/Cert Specialty Diagnoses / Procedures Referred By Rosa t Referred To Contact Diagnoses persistent atrial fibrillation Procedures PRO CARDIOVERSION ELECTIVE ARRHYTHMIA EXTERNAL CARDIOVERSION-ELECTIVE (WRVU 2.25) Referral ID Status Reason Start Date Expiration Date Visits Re quested Visits Authorized [id number] 1 1 Encounter Details Date Type Department Care Team (Late st Contact Info) Description 10/23/2020 11:30 AM EDT - 10/23/2020 12:00 PM EDT Surgery [place] [address] [place] [address] CARDIOVERSION-ELECTIVE (WRVU 2) Social History Tobacco Use Types Packs/Day Years [...] Sign Reading Time Taken Comments Blood Pressure 114/67 10/23/2020 12:00 PM EDT Pulse 65 10/23/2020 12:00 PM EDT Temperature 36 ??C (96.8 ??F) 10/23/2020 11:46 AM EDT Respiratory Rate 17 10/23/2020 12:00 PM EDT Oxygen Saturation 100% 10/23/2020 12:00 PM EDT Inhaled Oxygen Concentration - - [...] the adhesive pads were placed, call the international logistics manager salesperson burial plots at . We will schedule a follow-up appointment with the international logistics manager here, or you will be scheduled to see your local doctor soon. Any specific instructions that apply to you will be given to you prior to discharge from the hospital. If you have any questions, call the Cardiology Department at Thursday through Thursday 8:00 a.m. to 4:30 p.m. * Attachments The following attachments cannot be sent through Care Everywhere. * Cardioversion: Post-op (Latvian) documented in this encounter Medications at Time [...] disease) Overview Note: ?? Heart catheterization in [facility] in 2007 with placement of a stent in an unspecified vessel ?? Repeat heart catheterization in 2008 with placement of stents to both the LAD and circumflex ?? Followup heart catheterization in 2008 showing stable results in both vessels ?? Recurrent chest discomfort in a somewhat atypical pattern beginning fall ?? Nuclear stress test at [facility] in [place], [place] May 02, 2013 during which he developed left shoulder and arm discomfort during submaximal exercise on the treadmill and after which he was converted to a pharmacologic test; nuclear imaging showed ejection fraction of 45% with a partially reversible inferior defect ?? Cath [facility] 05/13/2013: normal left main, mild diffuse disease throughout the LAD with an 80% mid stenosis representing a restenosis lesion, mild diffuse disease in the proximal obtuse marginal branch, and mild diffuse disease throughout the right coronary artery; status post 3.0 X 12 mm JON to 80%mid-LAD lesion (in-stent restenosis) ?? Heart catheterization [facility] January 06, 2014 showing normal left main, hazy 50% mid LAD stenosis, mild diffuse disease throughout the circumflex, and moderate diffuse disease in the proximal RCA with a totally occluded distal RCA with brisk flow via bridging collaterals; fractional flow reserveon the LAD 0.85 ?? Nuclear stress test [facility] August 2016 reportedly showing a small area [...] 80 (documented on ICD interrogation 07/18/14) ?? [id number] score = 3 ?? Patient initially reluctant to be anticoagulated as recommended ??? Atrial pacemaker lead displacement Overview Note: New finding at office follow up 04/10/2014 Plan lead reposition/replacement ??? ICD (implantable cardioverter-defibrillator), dual, in situ Overview Note: New Atrial electrode: [employer] Dextrus Model# 4126-53 cm Serial# [id number] ?? Bipolar, steroid-tipped, active-fixation IS-1 lead ?? [...] at 10 V: No Old Ventricular electrode: [employer] [place] Model# 0292 Serial# [id number] ?? Bipolar, steroid-tipped, active-fixation DF-4 lead ?? [...] Atrial electrode: [employer] Dextrus Model# 4136 Serial# [id number] ?? Bipolar, steroid-tipped, active-fixation IS-1 lead ?? Access: Axillary vein ?? Location Removed 04/17/2014 ?? Implanted: 01/10/2014 Pulse generator: [employer] Incepta Model# E162 Serial# [id number] ?? DDDR ICD ?? Location: Subcutaneous The [...] past medical history. Pertinent Medications: No current [facility]-ordered facility-administered medications on file. Current Outpatient Medications Ordered in [facility] Medication Sig Dispense Refill ??? lamoTRIgine (LaMICtal) [...] since last night. MAXIMO Avila 10/23/2020 Attending: Fanatsma Matos MD 10/23/2020 Service Pager: [phone] documented in this encounter Miscellaneous Notes * Op Note - Fantasma Matos MD - 10/23/2020 11:35 AM EDT [facility] Operative Note Patient Name: Marquez Hendrix : [id number] MR#: [id number] Case Date: 10/23/2020 Surgeon: Surgeon(s) and Role: * Fantasma Matos MD - Primary * David Garner PA-C - Gusset Maker Preoperative diagnosis: persistent atrial fibrillation Postoperative diagnosis: [...] interrogation confirmed conversion. DEVICE INTERROGATION: Device type: [employer] Incepta ICD E 162 [id number] implanted 01/10/2014 Programmed: DDDR w/ mode switch [...] AM EDT Hospital Encounter [place] [address] Arrived documented as of this encounter Procedures Procedure Name Priority Date/Time Associated Diagnosis Comments EKG 12-LEAD STAT 10/23/2020 11:54 AM EDT PAF (paroxysmal atrial fibrillation) Cardioversion Elective Arrhythmia External (34659) 10/23/2020 11:25 AM EDT Persistent atrial fibrillation [...] (Bezet) 472 ms MUSE SYSTEM Calculated P [place] 49 degrees MUSE SYSTEM Calculated R [place] -51 degrees MUSE SYSTEM INTERPRETATION Sinus rhythm with 1st degree A-V block Left axis deviation Low voltage QRS Inferior infarct (cited on or before 23-OCT-2020) Cannot rule out Anterior infarct (cited on or before 06-NOV-2016) Abnormal ECG When compared with ECG of 23-OCT-2020 09:23, Sinus rhythm has replaced Atrial fibrillation Nonspecific T wave abnormality, improved in Lateral leads Confirmed by MD Davin, [facility] ([id number]) on 10/23/2020 12:10:37 PM MUSE SYSTEM 10/23/2020 11:5 4 AM EDT 10/23/2020 12:10 PM EDT Fantasma Matos MD ECG ORDERABLES MUSE SYSTEM documented in this encounter Visit Diagnoses Diagnosis Persistent atrial fibrillation Atrial fibrillation PAF (paroxysmal atrial fibrillation) Atrial fibrillation Persistent atrial fibrillation Atrial fibrillation documented in this encounter Administered [...] Routine documented in this encounter Care Teams Hand Candy Molder Relationship Specialty Start Date End Date Dewayne Carrington MD [address] [place] [phone] PCP - General 09/02/16 documented as of this encounter
--- OUTSIDE RECORDS SUMMARY | 2023-11-03 01:22 | XMS_ITS | Encounter Summary ---
Author Organization [facility] Address [facility] [place] [address] Care Team Providers Care Manager Photo Name Role Phone Dewayne Carrington MD Primary Care Provider [phone] Encounter Details Date Type Department Care Team ([facility] st Contact Info) Description 12/03/2020 Notes Only Cardiology at [address] [address] Edy Torres PA [facility] [place] [address] Social History Tobacco Use Types Packs/Day Years [...] of this encounter Progress Notes * Edy Torres PA - 12/03/2020 11:07 AM EDT Cardiac Electrophysiology Cardiac Implantable Electronic Device Remote Monitoring Interpretation ?? Transmission Date: 12/01/2020 Device Software Technician and Type: [employer] dual lead ICD Battery Status: good; est long 4yrs ?? Atrial lead status: good Right ventricular lead status: good Left ventricular lead status: n/a ?? Pacin % Atrial pacing 1 % Ventricular pacing ?? Events/Arrhythmias noted since last reset: 13 NSVT/VT episodes since 11/30 - 2 episodes on 11/30 at 1732 and 1735 received ATP in VT-1 zone for rapid MMVTwith success ?? Impression: Normally functioning dual lead [employer] ICD Hx of PAF, anticoagulated with xarelto ; most recent DCCV at [facility] on 10/24/2020 Hx of NSVT and VT - most recently seen @ [facility] on 11/28(cardioverted and loaded with amiodarone). ATPhas been applied in the past with variable success. ??Scheduled for outpatient follow up 12/12/2020 [facility] w/Dr. Matos ?? Provider: MAXIMO Leija EP Consult attending physician documented in this encounter Plan of Treatment Upcoming Encounters Date Type Department Care Team (Late st Contact Info) Description 12/18/2023 10:00 AM EDT Hospital Encounter Non[place] [address] Arrived documented as of this encounter Visit Diagnoses Not on filedocumented in this encounter Care Teams Manager Photo Relationship Specialty Start Date End Date [place] [address] PCP - General 09/02/16 documented as of this encounter
--- OUTSIDE RECORDS SUMMARY | 2023-11-03 01:22 | XMS_ITS | Encounter Summary ---
Author Organization [facility] [place] [address] Care Team Providers Care Content Producer Name Role Phone Dewayne Carrington MD Primary Care Provider [phone] Reason for Visit * Auth/Cert Specialty Diagnoses / Procedures Referred By Contac t Referred To Contact Diagnoses persistent atrial fibrillation Procedures PRO CARDIOVERSION ELECTIVE ARRHYTHMIA EXTERNAL CARDIOVERSION-ELECTIVE (WRVU 2.25) Referral ID Status Reason Start Date Expiration Date Visits Re quested Visits Authorized [id number] 1 1 Encounter Details Date Type Department Care Team (Late st Contact Info) Description 10/23/2020 11:25 AM EDT Anesthesia [place] [phone] Kyra Spear MD [facility] [address] Deepthi Monique CRNA [facility] [address] [place] [address] Anesthesia Record Procedure Summary Procedure Name Responsible Anesthesiologist Anesthesia Start Time Anesthesia Stop Time CARDIOVERSION-ELECT MARAL (WRVU 2) (Chest) Kyra Spear MD 10/23/20 1125 10/23/20 1144 Events Date Time Event Comment 10/23/2020 1058 1125 AN Verify 1125 Start 1125 An Start Data 1127 Quick Note Cardioverted by cardiology team; per discussion with cardiology team they did not want to magnet the ICD. 1128 Anesthesia Ready 1141 an stop data 1142 Recovery or ICU Handoff Elsa ent care was transferred to the destination unit staff after review of the patient's medical history, current anesthetic/surgical status and plan, according to the Provider Handoff Checklist. 1144 Stop Meds Name Total Propofol 40 mg PHENYLephrine 80 mcg Lactated Ringers 200 mL * Agents Name O2 Auxiliary Flowmeter 1 * Blood No blood administrations on file. Lines, Drains, and Airways Type Details Placement Removal (RETIRED) Pressure Ulcer 01/06/14 0209 by Breann Dill RN Incision 01/10/14; chest; 12/16/21 (LDA cleanup utility RA#[id number]); 1715 (LDA cleanup utility RA#[id number]) 01/10/14 0000 by Yaron Don RN 12/16/21 1715 by Timoteo Bella Incision 04/17/14; chest; 12/16/21 (LDA cleanup utility RA#[id number]); 1715 (LDA cleanup utility RA#[id number]) 04/17/14 0000 by Cheryle Lopes RN 12/16/21 1715 by Timoteo Bella (RETIRED) Peripheral IV Line - Single Lumen 10/23/20; 1118; metacarpal vein (top of hand), right; [id number] catheter system; Anatomical Landmarks; 22 gauge; rtrn; intradermal injection, tolerated well, appears comfortable; 10/23/20; 1245 10/23/20 1118 by Marii Beck, RN 10/23/20 1245 by Kailee Garcia RN documented in this encounter Social History Tobacco Use Types Packs/Day Years [...] on file documented as of this encounter OR Notes * Anesthesia Postprocedure Evaluation - Kyra Spear MD - 10/23/2020 1:49 PM EDT Department of Anesthesiology Post-procedure Note Patient: Marquez Hendrix Procedure Summary Date: 10/23/20 Room / Location: [facility] MAIN OR Anesthesia Start: 1125 Anesthesia Stop: 1144 Procedure: CARDIOVERSION-ELECTIVE (WRVU 2.25) (N/A Chest) Diagnosis: Persistent atrial fibrillation (persistent atrial fibrillation) Surgeons: Fantasma Matos MD Responsible Provider: Kyra Spear MD Anesthesia Type: MAC ASA Status: 3 All Anesthesia Providers: Anesthesiologist: Kyra Spear MD BROADCAST CHIEF ENGINEER: Deepthi Monique CRNA Student Nurse Tax Services Specialist: Brooke Montano Vitals Value Taken Time BP 114/69 10/23/20 1241 Temp 36 ??C (96.8 ??F) 10/23/20 1146 Pulse 63 10/23/20 1241 Resp 16 10/23/20 1241 SpO2 99 % 10/23/20 1241 Pain Level 0 10/23/20 1241 Patient Location: PACU/[facility] Level of Consciousness: Awake and Alert Pain Management: Satisfactory Analgesia PONV: None Cardiovascular Status: At Baseline Respiratory Status: At Baseline Postoperative Fluid Status: Intravascular EUvolemia Possible Anesthetic Complications: NONE apparent at time of evaluation Final Primary Anesthesia Type: MAC (The anesthetic type performed was the same as planned.) Comments: * Anesthesia Preprocedure Evaluation - Kyra Spear MD - 10/23/2020 10:57 AM EDT Pre-Anesthesia Evaluation for: Marquez Hendrix a 70 y.o. male. Procedure(s): CARDIOVERSION-ELECTIVE (WRVU 2.25) Patient Active Problem List Diagnosis ??? ASCVD (arteriosclerotic cardiovascular disease) ?? Heart catheterization in [facility] in 2007 with placement of a stent in an unspecified vessel ?? Repeat heart catheterization in 2008 with placement of stents to both the LAD and circumflex ?? Followup heart catheterization in 2008 showing stable results in both vessels ?? Recurrent chest discomfort in a somewhat atypical pattern beginning fall ?? Nuclear stress test at [facility] in [place], [place] May 02, 2013 during which he developed left shoulder and arm discomfort during submaximal exercise on the treadmill and after which he was converted to a pharmacologic test; nuclear imaging showed ejection fraction of 45% with a partially reversible inferior defect ?? Cath [facility] 05/13/2013: normal left main, mild diffuse disease throughout the LAD with an 80% mid stenosis representing a restenosis lesion, mild diffuse disease in the proximal obtuse marginal branch, and mild diffuse disease throughout the right coronary artery; status post 3.0 X 12 mm JON to 80%mid-LAD lesion (in-stent restenosis) ?? Heart catheterization [facility] January 06, 2014 showing normal left main, hazy 50% mid LAD stenosis, mild diffuse disease throughout the circumflex, and moderate diffuse disease in the proximal RCA with a totally occluded distal RCA with brisk flow via bridging collaterals; fractional flow reserveon the LAD 0.85 ?? Nuclear stress test [facility] August 2016 reportedly showing a small area [...] of left knee ??? Typical atrial flutter ?? Occurred 06/08/13, lasted about 24 hours, and v rate about 80 (documented on ICD interrogation 07/18/14) ?? [id number] score = 3 ?? Patient initially reluctant to be anticoagulated as recommended ??? Atrial pacemaker lead displacement New finding at office follow up 04/10/2014 Plan lead reposition/replacement ??? ICD (implantable cardioverter-defibrillator), dual, in situ New Atrial electrode: Guidant Dextrus Model# 4126-53 cm Serial# [id number] ?? Bipolar, steroid-tipped, active-fixation IS-1 lead ?? [...] at 10 V: No Old Ventricular electrode: SciGit [place] Model# 0292 Serial# [id number] ?? Bipolar, steroid-tipped, active-fixation DF-4 lead ?? [...] Atrial electrode: Guidant Dextrus Model# 4136 Serial# [id number] ?? Bipolar, steroid-tipped, active-fixation IS-1 lead ?? Access: Axillary vein ?? Location Removed 04/17/2014 ?? Implanted: 01/10/2014 Pulse generator: SciGit Incepta Model# E162 Serial# [id number] ?? DDDR ICD ?? Location: Subcutaneous The [...] ??? Sustained VT (ventricular tachycardia) ??? Depression --Treated with Lamictal. ??? Dermatitis ??? Irritant contact dermatitis ??? T2DM (type 2 diabetes mellitus) ??? Gastroesophageal reflux disease ??? IBS (irritable bowel syndrome) ??? Coronary atherosclerosis Overview: S/p PCI stent ??? Nephrolithiasis ??? Diabetes mellitus ??? HTN (hypertension) ??? Elevated cholesterol History reviewed. No pertinent past medical history. Past Surgical History: Procedure Laterality Date ??? PRO UPPER GI ENDOSCOPY, BIOPSY 12/17/2011 EGD WITH BIOPSY performed by KYRA VYAS at [facility] ENDOSCOPY Social History Tobacco Use ??? Smoking status: Current Every Day Smoker Years: 25.00 Types: e-Cigarettes ??? Smokeless tobacco: Never Used ??? Tobacco comment: using e cigarettes Substance Use Topics ??? Alcohol use: No Social History Substance and Sexual Activity Drug Use No Allergies Allergen Reactions ??? Latex Other reaction(s): trouble breathing/moving ??? Adhesive Tape Rash tegaderm ok Use paper tape Other reaction(s): rash Medications: MAR and/or home medications have been reviewed. Physical Exam: Preprocedure Vitals Current as of 10/23/20 1057 BP: 127/68 Pulse: 68 Resp: 16 SpO2: 99 Temp: 36.2 ??C (97.2 ??F) Height: 186.7 cm (6' 1.5) (10/23/20) Weight: 89 kg (196 lb 4.8 oz) (10/23/20) BMI: 25.54 IBW: 81.1 kg (178 lb 11.2 oz) Last edited 10/23/20 1039 by RT Airway Assessment: Mallampati: II TM distance: >3 FB Neck ROM: full Cardiovascular Assessment: Rhythm: irregular Rate: abnormal Pulmonary Assessment: breath sounds clear to auscultation Dental Assessment: Misc Assessment: IV access: Peripheral line Other exam findings: Upper and lower dentures Last Filed Perioperative Cognitive Screening None Anesthesia Plan: ASA 3 MAC, with a(n) intravenous induction I have seen and examined the patient. I have reviewed the medical record and pertinent laboratory information. I have noted the major medical issues as outlined in the problem list. He is here today for a cardioversion. He is NPO. I have reviewed risks from minor to major as outlined in the anesthesia consent form. I have highlighted risks related to airway management and sedation. He is aware that our care model is based on a team and I will be working with either a BROADCAST CHIEF ENGINEER or resident physician. A resident physician means a physician who is in training to be an anesthesiologist. The patient acknowledged these risks and would like to proceed with the anesthesia plan. Sedation. Informed Consent: Anesthetic plan and risks discussed with patient. Plan discussed with BROADCAST CHIEF ENGINEER. Anesthesia Screening documented in this encounter Miscellaneous Notes * Addendum Note - Kyra Spear MD - 10/23/2020 1:49 PM EDT Addendum created 10/23/20 1349 by Kyra Spear MD Clinical Note Signed documented in this encounter Plan of Treatment Upcoming Encounters Date Type Department Care Team (Late st Contact Info) Description 12/18/2023 10:00 AM EDT Hospital Encounter [place] [phone] Arrived documented as of this encounter Visit Diagnoses Not on filedocumented in this encounter Administered Medications Inactive Administered Medications - up to 3 most recent administrations Medication Order MAR Action Action Date Dose Rate Site lactated ringers infusion Intravenous, CONTINUOUS PRN, Starting on Thu10/23/20 at 1127, Until Thu10/23/20 at 1348, Anesthesia Intra-op New Bag 10/23/2020 11:27 AM EDT PHENYLephrine in NS (PF) (DIANE-SYNEPHRINE) 0.8 mg/10 mL (80 mcg/mL) multi-dose injection Syrg Intravenous, PRN, Starting on Thu10/23/20 at 1133, Until Thu10/23/20 at 1348, Anesthesia Intra-op, Routine Given 10/23/2020 11:33 AM EDT 80 mcg propofoL (Diprivan) 10 mg/mL bolus injection (Anesthesia) Intravenous, PRN, Starting on Thu10/23/20 at 1133, Until Thu10/23/20 at 1348, Anesthesia Intra-op Given 10/23/2020 11:33 AM EDT 40 mg documented in this encounter Care Teams Content Producer Relationship Specialty Start Date End Date Dewayne Carrington MD [facility] [place] [address] [place] [phone] PCP - General 09/02/16 documented as of this encounter
--- OUTSIDE RECORDS SUMMARY | 2023-11-03 01:22 | XMS_ITS | Encounter Summary ---
Author Organization [facility] [place] [address] Care Team Providers Care Motion Picture Critic Name Role Phone Dewayne Carrington MD Primary Care Provider [phone] Encounter Details Date Type Department Care Team (Late st Contact Info) Description 11/27/2020 External Results [place] [address] Social History Tobacco Use Types Packs/Day Years [...] AM EDT Hospital Encounter Non-[place] [address] Arrived documented as of this encounter Procedures Procedure Name Priority Date/Time Associated Diagnosis Comments ECG SCAN Routine 11/27/2020 documented in this encounter Results * Scan Doc: ECG (11/27/2020) Historical Provider MD LARIOS MGDarin SCAN EX T ORDR/RSLT documented in this encounter Visit Diagnoses Not on filedocumented in this encounter Care Teams Motion Picture Critic Relationship Specialty Start Date End Date Dewayne Carrington MD [address] [place] [address] PCP - General 09/02/16 documented as of this encounter
--- OUTSIDE RECORDS SUMMARY | 2023-11-03 01:22 | XMS_ITS | Encounter Summary ---
[place] [address] Care Team Providers Care Glove Cleaner Name Role Phone Dewayne Carrington MD Primary Care Provider [phone] Encounter Details Date Type Department Care Team (Late st Contact Info) Description 09/26/2020 Orders Only Cardiology at [address] [address] Social History Tobacco Use Types Packs/Day Years [...] AM EDT Hospital Encounter Non[place] [address] Arrived documented as of this encounter Procedures Procedure Name Priority Date/Time Associated Diagnosis Comments CARDIAC DEVICE CHECK - REMOTE DEVICE INITIATED Routine 09/26/2020 12:41 AM EDT documented in this encounter Results * Cardiac device check - Remote Device Initiated (09/26/2020 12:41 AM EDT) Pathologist [facility] Date Time Interrogation Session [id number] IDCO Type Interrogation Session Remote Device Initiated IDCO [facility] IDCO Battery Date Time of Measurements IDCO Battery Status Beginning of Service IDCO Battery Remaining Longevity 36 mo IDCO Battery Remaining Percentage 44 % IDCO Capacitor Last Charge Date Time [id number] IDCO Capacitor Charge Time 11.2 s IDCO Capacitor Charge Type Reformation IDCO Capacitor Last Charge Date Time IDCO Capacitor Charge Time 3.8 s IDCO Capacitor Charge Energy 21 J IDCO Capacitor Charge Type Shock IDCO Episode Identifier [id number] IDCO Episode Date Time IDCO Episode Type [...] IDCO Episode Statistic Recent Date Time End 20200926 IDCO Episode Statistic Type Category VT IDCO Episode Statistic Vendor Type Category VT IDCO Episode Statistic Recent Count 0 IDCO Episode Statistic Recent Date Time Start 20200918 IDCO Episode Statistic Recent Date Time End 20200926 IDCO Episode Statistic Type Category VT IDCO Episode Statistic Vendor Type Category VT-1 IDCO Episode Statistic Recent Count 2 IDCO Episode Statistic Recent Date Time Start 20200918 IDCO Episode Statistic Recent Date Time End 20200926 IDCO Episode Statistic Type Category Monitor IDCO Episode Statistic Vendor Type Category IDCO Episode Statistic Recent Count 0 IDCO Episode Statistic Recent Date Time Start 20200918 IDCO Episode Statistic Recent Date Time End 20200926 IDCO Episode Statistic Type Category Other IDCO Episode Statistic Vendor Type Category IDCO Episode Statistic Recent Count 0 IDCO Episode Statistic Recent Date Time Start 20200918 IDCO Episode Statistic Recent Date Time End 20200926 IDCO Episode Statistic Type Category VT IDCO Episode Statistic Vendor Type Category NSVT IDCO Episode Statistic Recent Count 17 IDCO Episode Statistic Recent Date Time Start 20200918 IDCO Episode Statistic Recent Date Time End 20200926 IDCO Episode Statistic Type Category AT/AF IDCO Episode Statistic Vendor Type Category ATR IDCO Episode Statistic Recent Count 12 IDCO Episode Statistic Recent Date Time Start 20200918 IDCO Episode Statistic Recent Date Time End 20200926 IDCO Albaro Setting AT Mode Switch Mode [...] E162 IDCO Implantable Pulse Generator Serial Number [id number] IDCO Implantable Pulse Generator District Home Economics Agent Parks Scientific IDCO Implantable Pulse Generator Implant Date 20140110 IDCO Implantable Lead Model 4136 IDCO Implantable Lead Serial Number [id number] IDCO Implantable Lead District Home Economics Agent Guidant IDCO Implantable Lead Implant Date 20130421 IDCO Implantable Lead Polarity Type Bipolar Lead IDCO Implantable Lead Location Right Atrium IDCO Implantable Lead Model 0292 IDCO Implantable Lead Serial Number [id number] IDCO Implantable Lead District Home Economics Agent Parks Scientific IDCO Implantable Lead Implant Date IDCO Implantable Lead Location Right Ventricle IDCO Lead Channel Measurements Date and Time Start 20190921 IDCO Lead Channel Measurements Date and Time End 20200925 IDCO Lead Channel Sensing Intrinsic Amplitude Mean 2.4 mV IDCO Lead Channel Sensing Polarity Bipolar IDCO Lead Channel Pacing Threshold Amplitude 0.7 V IDCO Lead Channel Pacing Threshold Pulse Width 0.5 ms IDCO Lead Channel Pacing Threshold Measurement Method Flight Security Specialist Manual IDCO Lead Channel Pacing Threshold Polarity Bipolar IDCO Lead Channel Impedance Value 751 ohms IDCO Lead Channel Impedance Polarity Bipolar IDCO Lead Channel Measurements Date and Time Start 20200918 IDCO Lead Channel Measurements Date and Time End 20200925 IDCO Lead Channel Sensing Intrinsic Amplitude Mean 10.8 mV IDCO Lead Channel Sensing Polarity Bipolar IDCO Lead Channel Pacing Threshold Amplitude 0.7 V IDCO Lead Channel Pacing Threshold Pulse Width 0.5 ms IDCO Lead Channel Pacing Threshold Measurement Method Flight Security Specialist Manual IDCO Lead Channel Pacing Threshold Polarity Bipolar IDCO Lead Channel Impedance Value 652 ohms IDCO Lead Channel Impedance Polarity Bipolar IDCO Lead High Voltage Channel Date Time 20200925 IDCO Lead High Voltage Channel Impedance 87 ohms IDCO Lead High Voltage Channel Measurement Type Low Voltage Pulse IDCO Statistic Date Time Start 20200918 IDCO Statistic Date Time End 20200926 IDCO Albaro Statistic Date Time Start 20200918 IDCO Albaro Statistic Date Time End 20200926 IDCO Albaro Statistic RA Percent Paced 0 % IDCO Albaro Statistic RV Percent Paced 18 % IDCO Therapy Statistic Recent Date Time Start 20200918 IDCO Therapy Statistic Recent Date Time End 20200926 IDCO Therapy Statistic Recent Shocks Delivered 0 IDCO Therapy Statistic Total Date Time Start 20140110 IDCO Therapy Statistic Total Date Time End 20200926 IDCO Therapy Statistic Total Shocks Delivered 2 IDCO Therapy Statistic Recent Shocks Aborted 0 IDCO Therapy Statistic Total Shocks Aborted 0 IDCO Therapy Statistic Recent ATP Delivered 3 IDCO Therapy Statistic Total ATP Delivered 10 IDCO Anatomical Region Laterality Modality Other 09/26/2020 12:4 1 AM EDT Physician Cardiology IMPLANTABLE CARD IAC DEVICE documented in this encounter Visit Diagnoses Not on filedocumented in this encounter Care Teams Glove Cleaner Relationship Specialty Start Date End Date Dewayne Carrington MD [address] [place] [address] PCP - General 09/02/16 documented as of this encounter
--- OUTSIDE RECORDS SUMMARY | 2023-11-03 01:22 | XMS_ITS | Encounter Summary ---
Author Organization [facility] Address [facility] [place] [address] Care Team Providers Care Cytogeneticist Name Role Phone Dewayne Carrington MD Primary Care Provider [phone] Encounter Details Date Type Department Care Team ([facility] st Contact Info) Description 11/28/2020 Telephone Cardiology at [address] [phone] Ania Rosa MD [facility] [place] [address] Social History Tobacco Use Types Packs/Day Years [...] encounter Miscellaneous Notes * Telephone Encounter - Ania Rosa MD - 11/28/2020 10:03 AM EDT Spoke with Dr. Cheng at [facility], patient was admitted yesterday with symptomatic ventricular tachycardia (ECGs scanned in our system). VT rate ws 150bpm, below detection threshold for his device. Patient underwent cardioversion and amiodarone drip. Advised a transition to amiodarone 400mg BID after 24 hours of drip to continue a load and to reachout to [employer] for device reprogramming. Will require f/u in clinic with Dr. Matos. Ania Rosa MD 11/28/2020 documented in this encounter Plan of Treatment Upcoming Encounters Date Type Department Care Team (Late st Contact Info) Description 12/18/2023 10:00 AM EDT Hospital Encounter Non-[place] [address] Arrived documented as of this encounter Visit Diagnoses Not on filedocumented in this encounter Care Teams Cytogeneticist Relationship Specialty Start Date End Date Dewayne Carrington MD [address] [place] [address] PCP - General 09/02/16 documented as of this encounter
--- OUTSIDE RECORDS SUMMARY | 2023-11-03 01:22 | XMS_ITS | Encounter Summary ---
Author Organization [facility] Address [place] [address] Care Team Providers Care Dental Office Assistant Name Role Phone Dewayne Carrington MD Primary Care Provider [phone] Reason for Visit * Auth/Cert Specialty Diagnoses / Procedures Referred By Contac t Referred To Contact Diagnoses persistent atrial fibrillation Procedures PRO CARDIOVERSION ELECTIVE ARRHYTHMIA EXTERNAL CARDIOVERSION-ELECTIVE (WRVU 2.25) Referral ID Status Reason Start Date Expiration Date Visits Re quested Visits Authorized [id number] 1 1 Encounter Details Date Type Department Care Team (Late st Contact Info) Description 10/23/2020 9:30 AM EDT Office Visit Cardiology at [address] [address] David Garner PA [facility] [address] Persistent atrial fibrillation Social History Tobacco Use [...] Sign Reading Time Taken Comments Blood Pressure 127/68 10/23/2020 9:21 AM EDT Pulse 68 10/23/2020 9:21 AM EDT Temperature - - Respiratory Rate - - Oxygen Saturation 99% 10/23/2020 9:21 AM EDT Inhaled Oxygen Concentration - - Weight 89 kg (196 lb 4.8 oz) 10/23/2020 9:21 AM EDT Height 186.7 cm (6' 1.5) 10/23/2020 9:21 AM EDT reported Body Mass Index 25.55 10/23/2020 9:21 AM EDT documented in this encounter Progress Notes * David Garner PA - 10/23/2020 9:30 AM EDT Day of Cardioversion History and Physical Subjective: Patient ID: Marquez Hendrix is a 70 y.o. male. CC: Presents for pre-cardioversion evaluation HPI: 70 y.o. male with past medical history of recently persistent (~1 month) atrial fibrillation, on metoprolol and anticoagulated on Xarelto, hx sustained monomorphic VT, s/p dual-chamber ICD implantation 01/10/2014, complicated by atrial lead dislodgement requiring atrial lead revision on 04/17/2014, who presents today for elective cardioversion. There have not been any medication changes since the last visit. This morning, all medications weretaken except Metformin and lisinopril. he has been NPO since last night. he is anticoagulated with Xarelto. (is adamant there have been no missed doses in the last 3 weeks). A 12-lead EKG today showed demand pacemaker 61 bpm with underlying atrial fibrillation with premature ventricular complexes, left axis deviation, and no significant changes compared to November 06, 2020 except for atrial fibrillation had replaced sinus. Patient Active Problem List Diagnosis ??? ASCVD (arteriosclerotic cardiovascular disease) Overview Note: ?? Heart catheterization in [facility] in 2007 with placement of a stent in an unspecified vessel ?? Repeat heart catheterization in 2008 with placement of stents to both the LAD and circumflex ?? Followup heart catheterization in 2008 showing stable results in both vessels ?? Recurrent chest discomfort in a somewhat atypical pattern beginning fall ?? Nuclear stress test at [facility] in [place], [place] May 02, 2013 during which he developed left shoulder and arm discomfort during submaximal exercise on the treadmill and after which he was converted to a pharmacologic test; nuclear imaging showed ejection fraction of 45% with a partially reversible inferior defect ?? Cath [facility] 05/13/2013: normal left main, mild diffuse disease throughout the LAD with an 80% mid stenosis representing a restenosis lesion, mild diffuse disease in the proximal obtuse marginal branch, and mild diffuse disease throughout the right coronary artery; status post 3.0 X 12 mm JON to 80%mid-LAD lesion (in-stent restenosis) ?? Heart catheterization [facility] January 06, 2014 showing normal left main, hazy 50% mid LAD stenosis, mild diffuse disease throughout the circumflex, and moderate diffuse disease in the proximal RCA with a totally occluded distal RCA with brisk flow via bridging collaterals; fractional flow reserveon the LAD 0.85 ?? Nuclear stress test [facility] August 2016 reportedly showing a [...] 80 (documented on ICD interrogation 07/18/14) ?? [id number] score = 3 ?? Patient initially reluctant to be anticoagulated as recommended ??? Atrial pacemaker lead displacement Overview Note: New finding at office follow up 04/10/2014 Plan lead reposition/replacement ??? ICD (implantable cardioverter-defibrillator), dual, in situ Overview Note: New Atrial electrode: Guidant Dextrus Model# 4126-53 cm Serial# [id number] ?? Bipolar, steroid-tipped, active-fixation IS-1 lead ?? [...] at 10 V: No Old Ventricular electrode: Archsy [place]e Model# 0292 Serial# [id number] ?? Bipolar, steroid-tipped, active-fixation DF-4 lead ?? [...] Atrial electrode: Guidant Dextrus Model# 4136 Serial# [id number] ?? Bipolar, steroid-tipped, active-fixation IS-1 lead ?? Access: Axillary vein ?? Location Removed 04/17/2014 ?? Implanted: 01/10/2014 Pulse generator: Archsy Incepta Model# E162 Serial# [id number] ?? DDDR ICD ?? Location: Subcutaneous The [...] HTN (hypertension) Overview Note: ??? Elevated cholesterol Interval ROS: Patient denies cough, fever, PND, orthopnea, activity intolerance, leg swelling, change in bowel habit, presyncope or syncope. Medications: Current Outpatient Medications Medication Sig Note Dispense Refill ??? cyanocobalamin, Vitamin B-12, (Vitamin B-12) 1,000 mcg Tablet Take 1,000 mcg by mouth daily. ??? lamoTRIgine (LaMICtal) 100 mg Tablet Take 50 mg by mouth daily. TAKES IN ADDITION TO 200 MG TAB ??? ferrous sulfate 324 mg (65 mg iron) Tablet, Delayed Release (E.C.) Take 324 mg by mouth daily. 10/19/2020: HOLD DAY OF PROCEDURE ??? KlonoPIN 1 mg Tablet Take by [...] Capsule take 1 capsule by mouth daily 10/19/2020: HOLD DAY OF PROCEDURE 0 ??? lamoTRIgine (LAMICTAL) 200 mg Tablet 200 mg daily. 0 ??? aspirin 81 mg Tablet, Delayed Release (E.C.) Take 81 mg by mouth daily. ??? rivaroxaban (XARELTO) 20 mg Tablet Take 1 tablet by mouth daily. 30 tablet 11 ??? glipiZIDE (GLUCOTROL) 5 mg Tablet Take 5 mg by mouth daily. 10/19/2020: HOLD DAY OF PROCEDURE ??? MAGNESIUM CARBONATE ORAL Take 400 mg by mouth 3 times daily. 10/19/2020: HOLD DAY OF PROCEDURE ??? pantoprazole (PROTONIX) 40 mg Tablet, Delayed [...] capsule Take 1 capsule by mouth daily. 10/19/2020: HOLD DAY OF PROCEDURE ??? LANCETS MISC by Misc.(Non-Drug; Combo Route) route. ??? metformin (GLUCOPHAGE) 1,000 mg tablet Take 1,000 mg by mouth 2 times daily (with meals). 10/19/2020: HOLD DAY OF PROCEDURE ??? nitroGLYcerin (NITROSTAT) 0.[address] 0.4 mg under the tongue every 5 minutes as needed. Reported on 09/30/2016 Allergies Allergies Allergen Reactions ??? Latex Other reaction(s): trouble breathing/moving ??? Adhesive Tape Rash tegaderm ok Use paper tape Other reaction(s): rash Social History Socioeconomic History ??? Marital status: [...] Week: ??? Minutes of Exercise per Session: Objective: Vitals: Vitals: 10/23/20 0921 BP: 127/68 BP Location ([facility]): Left arm Patient Position: Sitting Pulse: 68 SpO2: 99% Weight: 89 kg (196 lb 4.8 oz) Height: 186.7 cm (6' 1.5) Physical Exam: General- No acute distress, sitting comfortably in exam room chair Skin- Warm and dry Cardiovascular- S1/S2 irregular rate and rhythm. No murmur, rub or gallop Lungs- Clear to auscultation bilaterally Extremities- Pulses equal bilaterally. No edema noted Neuro- A&Ox3. Lab data: Lab Results Component Value Date NA 141 10/23/2020 K 4.5 10/23/2020 CL 104 10/23/2020 CO2 27 10/23/2020 BUN 25 (H) 10/23/2020 CREATININE 0.90 10/23/2020 GLUCOSE 263 (H) 10/23/2020 GLUCFASTING 183 (H) 04/17/2014 CALCIUM 9.5 10/23/2020 ESTGFR 86 10/23/2020 Lab Results Component Value Date MAGNESIUM 0.81 10/23/2020 Assessment and Plan: 70 y.o. with medical history significant for recently increased frequency and burden of paroxysmal atrial fibrillation, on metoprolol and anticoagulated on Xarelto, hx sustained monomorphic VT, s/p dual-chamber ICD implantation 01/10/2014, complicated by atrial lead dislodgement requiring atrial lead revision on 04/17/2014, who presented for elective cardioversion. No contraindication to planned cardioversion today. Plan: 1. The cardioversion procedure was discussed and questions answered. We discussed possible risks including but not limited to: skin irritation or escalante, bradycardia or rhythm abnormalities(arrythmia), stroke(CVA), aspiration, cardiac arrest. Written consent was obtained and placed in hard chart. 2. Code Status: FULL CODE 3. Patient to proceed to Same Day Program 4. Follow up will be dependent on the results of the cardioversion. MAXIMO Avila documented in this encounter Plan of Treatment Upcoming Encounters Date Type Department Care Team (Late st Contact Info) Description 12/18/2023 10:00 AM EDT Hospital Encounter Non-[place] [address] Arrived documented as of this encounter Procedures Procedure Name Priority Date/Time Associated Diagnosis Comments EKG 12-LEAD Routine 10/23/2020 9:23 AM EDT Persistent atrial fibrillation documented in this encounter Results * EKG 12 Lead (10/23/2020 9:23 AM EDT) Ventricular rate 61 BPM MUSE SYSTEM Atrial Rate 326 BPM MUSE SYSTEM QRS Duration 116 ms MUSE SYSTEM Q-T Interval 394 ms MUSE SYSTEM QTC Calculated (Bezet) 396 ms MUSE SYSTEM Calculated R [place] -58 degrees MUSE SYSTEM Calculated T [place] -45 degrees MUSE SYSTEM INTERPRETATION Demand pacemaker; interpretation is based on intrinsic rhythm Atrial fibrillation with premature ventricular or aberrantly conducted complexes Left axis deviation Inferior infarct , age undetermined Possible Anterior infarct (cited on or before 06-NOV-2016) Abnormal ECG When compared with ECG of 06-NOV-2016 13:03, Atrial fibrillation has replaced Sinus rhythm Confirmed by MD Davin, Connor ([id number]) on 10/23/2020 9:47:44 AM MUSE SYSTEM 10/23/2020 9:23 AM EDT 10/23/2020 9:47 AM EDT Irena Daly MD ECG ORDERABLES MUSE SYSTEM documented in this encounter Visit Diagnoses Diagnosis Persistent atrial fibrillation Atrial fibrillation documented in this encounter Care Teams Dental Office Assistant Relationship Specialty Start Date End Date Dewayne Carrington MD [address] [place] [address] PCP - General 09/02/16 documented as of this encounter
--- OUTSIDE RECORDS SUMMARY | 2023-11-03 01:22 | XMS_ITS | Encounter Summary ---
Author Organization [facility] Address [facility] [address] Care Team Providers Care Director Instructional Material Name Role Phone Dewayne Carrington MD Primary Care Provider [phone] Encounter Details Date Type Department Care Team (Late st Contact Info) Description 10/11/2020 [place] [phone] David Garner, MAXIMO [facility] [place] [address] Persistent atrial fibrillation Social History Tobacco Use [...] AM EDT Hospital Encounter Non-[place] [address] Arrived documented as of this encounter Results * EKG 12 Lead (10/23/2020 9:23 AM EDT) Ventricular rate 61 BPM MUSE SYSTEM Atrial Rate 326 BPM MUSE SYSTEM QRS Duration 116 ms MUSE SYSTEM Q-T Interval 394 ms MUSE SYSTEM QTC Calculated (Bezet) 396 ms MUSE SYSTEM Calculated R [place] -58 degrees MUSE SYSTEM Calculated T [place] -45 degrees MUSE SYSTEM INTERPRETATION Demand pacemaker; interpretation is based on intrinsic rhythm Atrial fibrillation with premature ventricular or aberrantly conducted complexes Left axis deviation Inferior infarct , age undetermined Possible Anterior infarct (cited on or before 06-NOV-2016) Abnormal ECG When compared with ECG of 06-NOV-2016 13:03, Atrial fibrillation has replaced Sinus rhythm Confirmed by MD Davin, Connor ([id number]) on 10/23/2020 9:47:44 AM MUSE SYSTEM 10/23/2020 9:23 AM EDT 10/23/2020 9:47 AM EDT Irena Daly MD ECG ORDERABLES Performing Organization Address [facility] Co de Phone Number MUSE SYSTEM * Magnesium (10/23/2020 9:05 AM EDT) Magnesium 0.81 0.69 - 1.07 mmol/L [facility] Blood 10/23/2020 9:05 AM EDT 10/23/2020 9:09 AM EDT Narrative Resulting Agency Comment Spec In Lab Irena Daly MD CHEMISTRY ORDERABLES Performing Organization Address [facility] Co de Phone Number [facility] [place] [address] * (ABNORMAL) Basic Metabolic Panel (non-fasting) (10/23/2020 9:05 AM EDT) Glucose Lvl 263(H) 65 - 199 mg/dL [facility] Comment:Diabetes: >=200 mg/d L plus symptoms BUN 25(H) 10 - 20 mg/dL [facility] Creatinine 0.90 0.80 - 1.50 mg/dL [facility] Sodium 141 135 - 145 mmol/L [facility] Potassium 4.5 3.5 - 5.0 mmol/L [facility] Comment: Please note: ??Patients with WBC >100,000 may have falsely elevated Potassium levels. ??For accurate Potassium quantification in these patients send serum separator tube (gold top) for subsequent determinations. ??Contact the Clinical Chemistry Laboratory if there are any questions. Chloride 104 98 - 107 mmol/L [facility] CO2 27 22 - 31 mmol/L [facility] Anion Gap 10 5 - 15 mmol/L [facility] Calcium 9.5 8.5 - 10.5 mg/dL [facility] Estimated GFR 86 >=60 mL/min/1. 73 m?? [facility] [...] In Lab Irena Daly MD CHEMISTRY ORDERABLES [facility] [place] [address] documented in this encounter Visit Diagnoses Diagnosis Persistent atrial fibrillation Atrial fibrillation documented in this encounter Care Teams Director Instructional Material Relationship Specialty Start Date End Date Dewayne Carrington MD [facility] [place] [address] PCP - General 09/02/16 documented as of this encounter
--- OUTSIDE RECORDS SUMMARY | 2023-11-03 01:22 | XMS_ITS | Encounter Summary ---
Author Organization [facility] [place] [address] Care Team Providers Care Repairer Auto Clocks Name Role Phone Dewayne Carrington MD Primary Care Provider [phone] Encounter Details Date Type Department Care Team (Late st Contact Info) Description 12/25/2020 Telephone Cardiology at [address] [address] Yumiko Lopes Social History Tobacco Use Types Packs/Day Years [...] encounter Miscellaneous Notes * Telephone Encounter - Yumiko Lopes - 12/25/2020 8:37 AM EDT Email sent to Yudi Doyle RN at [facility] asking for 01/09/21 appt to be made with Dr. Molina. Yumiko Lopes EP Scheduling documented in this encounter Plan of Treatment Upcoming Encounters Date Type Department Care Team (Late st Contact Info) Description 12/18/2023 10:00 AM EDT Hospital Encounter Non[place] [phone] Arrived documented as of this encounter Visit Diagnoses Not on filedocumented in this encounter Care Teams Repairer Auto Clocks Relationship Specialty Start Date End Date Dewayne Carrington MD [facility] [place] [address] PCP - General 09/02/16 documented as of this encounter
--- OUTSIDE RECORDS SUMMARY | 2023-11-03 01:23 | XMS_ITS | Encounter Summary ---
Author Organization [facility] Address [facility] [place] [address] Care Team Providers Care Storeroom Keeper Name Role Phone Dewayne Carrington MD Primary Care Provider [phone] Encounter Details Date Type Department Care Team (Latest Contact Info) Description 08/23/2020 11:29 AM EDT - 08/23/2020 11:59 PM EDT Hospital Encounter Non-[place]vasive [place] [address] Ta Negron MD [facility] [place] [address] V-tach Discharge Disposition: Home Social History Tobacco [...] Sig Dispensed Refills Start Date End Date KlonoPIN 1 mg Tablet Take by mouth [...] Take 40 mg by mouth daily. 03/18/2022 vortioxetine (BRINTELLIX) 10 mg Tablet Take 15 mg by mouth daily (after breakfast). 09/18/2020 metoprolol succinate (TOPROL-XL) 25 mg Tablet Sustained Release 24 hr Take 50 mg by mouth daily. Per pt 09/18/2020 glipiZIDE (GLUCOTROL) 5 mg Tablet Take 5 mg by mouth daily. 03/18/2022 atorvastatin (LIPITOR) 80 mg Tablet Take 80 mg by mouth daily. 12/12/2020 CALCIUM CARBONATE/VITAMIN D3 (VITAMIN D-3 ORAL) Take 1 capsule by mouth daily. 10/19/2020 lisinopril (PRINIVIL;ZESTRIL) 20 mg Tablet Take 1 tablet by mouth daily. 30 tablet 12 01/09/2014 03/18/2022 alprazolam (XANAX XR) 3 mg 24 hr tablet Take 3 mg by mouth nightly. 09/18/2020 documented as of this encounter Plan of Treatment Upcoming Encounters Date Type Department Care Team (Late st Contact Info) Description 12/18/2023 10:00 AM EDT Hospital Encounter Non-[place] [address] Arrived documented as of this encounter Procedures Procedure Name Priority Date/Time Associated Diagnosis Comments ICD INTERROGATION 3 MONTH Routine 08/23/2020 11:31 AM EDT V-tach documented in this encounter Results * ICD INTERROGATION 3 MONTH (08/23/2020 11:31 AM EDT) Anatomical Region Laterality Modality Other Narrative 08/23/2020 11:45 AM EDT Cardiac Device Remote Monitoring Report Summary [employer] Latitude 08/23/20 Device: ICD Model: INCEPTA Battery: Beginning of service, remaining longevity 3 years, 6 months Pacing percentage: 19% ventricular paced Events: The presenting rhythm is atrial fibrillation with ventricular sensing The underlying rhythm appears to be atrial fibrillation since March 2020 Impression Normal device function He did receive antitachycardia pacing for what appears to be rapidly conducted atrial arrhythmias, this was reviewed on his prior remote download (see prior note) He may benefit from up titration of AV juanjo agents, may also be considered for direct-current cardioversion if appropriate Follow Up As per schedule - in-clinic and remote TA NEGRON MD Ta Negron MD IMPLANTABLE CARDIAC DEVICE documented in this encounter Visit Diagnoses Diagnosis V-tach Paroxysmal ventricular tachycardia documented in this encounter Care Teams Storeroom Keeper Relationship Specialty Start Date End Date Dewayne Carrington MD [address] [place] [address] PCP - General 09/02/16 documented as of this encounter
--- OUTSIDE RECORDS SUMMARY | 2023-11-03 01:23 | XMS_ITS | Encounter Summary ---
Author Organization [facility] Address [facility] [place] [address] Care Team Providers Care Resident Intern Name Role Phone Dewayne Carrington MD Primary Care Provider [phone] Encounter Details Date Type Department Care Team ([facility] st Contact Info) Description 09/18/2020 1:00 PM EDT Office Visit Cardiology at [address] [address] David Garner PA [facility] [place] [address] Sustained VT (ventricular tachycardia); ICD (implantable cardioverter-defibril lator), dual, in situ; Persistent atrial fibrillation Social History Tobacco Use [...] Sign Reading Time Taken Comments Blood Pressure 96/59 09/18/2020 1:12 PM EDT Pulse 73 09/18/2020 1:12 PM EDT Temperature - - Respiratory Rate - - Oxygen Saturation 99% 09/18/2020 1:12 PM EDT Inhaled Oxygen Concentration - - Weight 84.4 kg (186 lb) 09/18/2020 1:12 PM EDT Height 185.4 cm (6' 1) 09/18/2020 1:12 PM EDT Body Mass Index 24.54 09/18/2020 1:12 PM EDT documented in this encounter Progress Notes * David Garner PA - 09/18/2020 1:00 PM EDT Cardiac Device Interrogation Marquez Hendrix [id number] 09/18/2020 History: Mr. 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 Patient has been in atrial fibrillation since early May 2020. He complains of dyspnea on exertion and intermittent chest discomfort. He has had rare palpitations. He remains anticoagulated on Xarelto without subjectively missed doses over at least preceding 3 weeks. Device Interrogation: Device Info: ?? New Atrial electrode: Guidant Dextrus Model# 4126-53 cm Serial# [id number], implanted 04/17/2014 ?? Bipolar, steroid-tipped, active-fixation IS-1 lead ?? Access: Axillary vein ?? Location Right atrial appendage ?? Old Ventricular electrode: [employer] Crane Model# 0292 Serial# [id number] ?? Bipolar, steroid-tipped, active-fixation DF-4 lead ?? Access: Axillary vein ?? Location: Right ventricular apex ?? Implanted: 01/10/2014 ?? Pulse generator: [employer] Incepta Model# E162 Serial# [id number] ?? DDDR ICD ?? Location: Subcutaneous Diagnostics Tachy settings: VF 220 bpm; ATP, 31j, 41j x 7 VT 180 bpm; Scan, 31j, 41j x 5 VT-1 155 bpm; Scan, RampScan, 0.9j, 11j, 41j x 3 Pacing Mode: DDDR 55/130/130 Presenting EGMs: -VS Underlying Rhythm: AFib 70-80's Atrial Episodes: 100% AF since 05/23/2020 Ventricular Episodes: None Atrial Pacin% Ventricular Pacin% Thoracic Impedance: N/A HR Histogram: Appropriate Battery and Leads Voltage: N/A Status: 3 yrs Magnet Rate: --- Charge Time: 11.2 sec Impedances (ohms) Sensing (mV) Thresholds HV RA RV LV RA RV LV RA RV LV [phone] --- 3.8 13.9 @ 86 bpm --- AFib 0.70V @ 0.50ms ---- Comments: - Pocket incision is well healed without signs or symptoms of infection - Device is functioning appropriately - Programming changes ?? None - Follow up: Remotely and in device clinic as arranged. Will arrange outpatient cardioversion on uninterrupted Xarelto (patient would prefer to have it done at [facility]). MAXIMO Avila 09/18/2020 documented in this encounter Miscellaneous Notes * Addendum Note - David Garner PA - 09/18/2020 1:00 PM EDTAddended by: DAVID GARNER on: 10/02/2020 11:11 PM Modules accepted: Orders documented in this encounter Plan of Treatment Upcoming Encounters Date Type Department Care Team (Late st Contact Info) Description 12/18/2023 10:00 AM EDT Hospital Encounter Non-[place] [address] Arrived documented as of this encounter Visit Diagnoses Diagnosis Sustained VT (ventricular tachycardia) Paroxysmal ventricular tachycardia ICD (implantable cardioverter-defibrillator), dual, in situ Persistent atrial fibrillation Atrial fibrillation documented in this encounter Care Teams Resident Intern Relationship Specialty Start Date End Date Dewayne Carrington MD [address] [place] [address] PCP - General 09/02/16 documented as of this encounter
--- OUTSIDE RECORDS SUMMARY | 2023-11-03 01:23 | XMS_ITS | Encounter Summary ---
[place] [address] Care Team Providers Care Loan Review Officer Name Role Phone Dewayne Carrington MD Primary Care Provider [phone] Encounter Details Date Type Department Care Team (Late st Contact Info) Description 08/23/2020 Orders Only Cardiology at [address] [address] Social History Tobacco Use Types Packs/Day Years [...] AM EDT Hospital Encounter [place] [address] Arrived documented as of this encounter Procedures Procedure Name Priority Date/Time Associated Diagnosis Comments CARDIAC DEVICE CHECK - REMOTE SCHEDULED Routine 08/23/2020 12:41 AM EDT documented in this encounter Results * Cardiac device check - Remote Scheduled (08/23/2020 12:41 AM EDT) Date Time Interrogation Session [id number] [facility] Type Interrogation Session Remote Scheduled [facility] IDCO Battery Date Time of Measurements [id number] IDCO Battery Status Beginning of Service IDCO Battery Remaining Longevity 42 mo IDCO Battery Remaining Percentage 46 % IDCO Capacitor Last Charge Date Time [id number] IDCO Capacitor Charge Time 11.2 s IDCO Capacitor Charge Type Reformation IDCO Capacitor Last Charge Date Time [id number] IDCO Capacitor Charge Time 3.8 s IDCO Capacitor Charge Energy 21 J IDCO Capacitor Charge Type Shock IDCO Episode Identifier [id number] IDCO Episode Date Time IDCO Episode Type Category Periodic EGM IDCO Episode Vendor Type Category APMRT IDCO Episode Detection And Therapy Details Presenting EGM IDCO Episode Identifier [id number] IDCO Episode Date Time IDCO Episode Type Category AT/AF IDCO Episode Vendor Type Category ATR IDCO Episode Detection Interval Atrial 169 ms IDCO Episode Detection And Therapy Details ATR IDCO Episode Statistic Type Category VF IDCO Episode Statistic Vendor Type Category VF IDCO Episode Statistic Recent Count 0 IDCO Episode Statistic Recent Date Time Start 20200523 IDCO Episode Statistic Recent Date Time End 20200823 IDCO Episode Statistic Type Category VT IDCO Episode Statistic Vendor Type Category VT IDCO Episode Statistic Recent Count 0 IDCO Episode Statistic Recent Date Time Start 20200523 IDCO Episode Statistic Recent Date Time End 20200823 IDCO Episode Statistic Type Category VT IDCO Episode Statistic Vendor Type Category VT-1 IDCO Episode Statistic Recent Count 1 IDCO Episode Statistic Recent Date Time Start 20200523 IDCO Episode Statistic Recent Date Time End 20200823 IDCO Episode Statistic Type Category Monitor IDCO Episode Statistic Vendor Type Category IDCO Episode Statistic Recent Count 0 IDCO Episode Statistic Recent Date Time Start 20200523 IDCO Episode Statistic Recent Date Time End 20200823 IDCO Episode Statistic Type Category Other IDCO Episode Statistic Vendor Type Category IDCO Episode Statistic Recent Count 0 IDCO Episode Statistic Recent Date Time Start 20200523 IDCO Episode Statistic Recent Date Time End 20200823 IDCO Episode Statistic Type Category VT IDCO Episode Statistic Vendor Type Category NSVT IDCO Episode Statistic Recent Count 1 IDCO Episode Statistic Recent Date Time Start 20200523 IDCO Episode Statistic Recent Date Time End 20200823 IDCO Episode Statistic Type Category AT/AF IDCO Episode Statistic Vendor Type Category ATR IDCO Episode Statistic Recent Count 2 IDCO Episode Statistic Recent Date Time Start 20200523 IDCO Episode Statistic Recent Date Time End 20200823 IDCO Albaro Setting AT Mode Switch Mode [...] E162 IDCO Implantable Pulse Generator Serial Number [id number] IDCO Implantable Pulse Generator Assisted Living Coordinator [place] [employer] IDCO Implantable Pulse Generator Implant Date 20140110 IDCO Implantable Lead Model 4136 IDCO Implantable Lead Serial Number [id number] IDCO Implantable Lead Assisted Living Coordinator Guidant IDCO Implantable Lead Implant Date 20130421 IDCO Implantable Lead Polarity Type Bipolar Lead IDCO Implantable Lead Location Right Atrium IDCO Implantable Lead Model 0292 IDCO Implantable Lead Serial Number [id number] IDCO Implantable Lead Assisted Living Coordinator [place] Scientific IDCO Implantable Lead Implant Date IDCO Implantable Lead Location Right Ventricle IDCO Lead Channel Measurements Date and Time Start 20190921 IDCO Lead Channel Measurements Date and Time End 20200822 IDCO Lead Channel Sensing Intrinsic Amplitude Mean 4.9 mV IDCO Lead Channel Sensing Polarity Bipolar IDCO Lead Channel Pacing Threshold Amplitude 0.7 V IDCO Lead Channel Pacing Threshold Pulse Width 0.5 ms IDCO Lead Channel Pacing Threshold Measurement Method Gas Line Repairer Manual IDCO Lead Channel Pacing Threshold Polarity Bipolar IDCO Lead Channel Impedance Value 741 ohms IDCO Lead Channel Impedance Polarity Bipolar IDCO Lead Channel Measurements Date and Time Start 20200523 IDCO Lead Channel Measurements Date and Time End 20200822 IDCO Lead Channel Sensing Intrinsic Amplitude Mean 11.2 mV IDCO Lead Channel Sensing Polarity Bipolar IDCO Lead Channel Pacing Threshold Amplitude 0.6 V IDCO Lead Channel Pacing Threshold Pulse Width 0.5 ms IDCO Lead Channel Pacing Threshold Measurement Method Gas Line Repairer Manual IDCO Lead Channel Pacing Threshold Polarity Bipolar IDCO Lead Channel Impedance Value 660 ohms IDCO Lead Channel Impedance Polarity Bipolar IDCO Lead High Voltage Channel Date Time 20200822 IDCO Lead High Voltage Channel Impedance 89 ohms IDCO Lead High Voltage Channel Measurement Type Low Voltage Pulse IDCO Statistic Date Time Start 20200523 IDCO Statistic Date Time End 20200823 IDCO Albaro Statistic Date Time Start 20200523 IDCO Albaro Statistic Date Time End 20200823 IDCO Albaro Statistic RA Percent Paced 0 % IDCO Albaro Statistic RV Percent Paced 19 % IDCO Therapy Statistic Recent Date Time Start 20200523 IDCO Therapy Statistic Recent Date Time End 20200823 IDCO Therapy Statistic Recent Shocks Delivered 0 IDCO Therapy Statistic Total Date Time Start 20140110 IDCO Therapy Statistic Total Date Time End 20200823 IDCO Therapy Statistic Total Shocks Delivered 2 IDCO Therapy Statistic Recent Shocks Aborted 0 IDCO Therapy Statistic Total Shocks Aborted 0 IDCO Therapy Statistic Recent ATP Delivered 1 IDCO Therapy Statistic Total ATP Delivered 3 IDCO Anatomical Region Laterality Modality Other 08/23/2020 12:4 1 AM EDT Physician Cardiology IMPLANTABLE CARD IAC DEVICE documented in this encounter Visit Diagnoses Not on filedocumented in this encounter Care Teams Loan Review Officer Relationship Specialty Start Date End Date Dewayne Carrington MD [address] [place] [address] PCP - General 09/02/16 documented as of this encounter
--- OUTSIDE RECORDS SUMMARY | 2023-11-03 01:23 | XMS_ITS | Encounter Summary ---
[place] [address] Care Team Providers Care Respiratory Therapy Aide Name Role Phone Dewayne Carrington MD Primary Care Provider [phone] Encounter Details Date Type Department Care Team (Late st Contact Info) Description 2020 Orders Only Cardiology at [address] [address] Social History Tobacco Use Types Packs/Day Years [...] AM EDT Hospital Encounter [place] [address] Arrived documented as of this encounter Procedures Procedure Name Priority Date/Time Associated Diagnosis Comments CARDIAC DEVICE CHECK - REMOTE DEVICE INITIATED Routine 2020 12:42 AM EST documented in this encounter Results * Cardiac device check - Remote Device Initiated (2020 12:42 AM EST) Date Time Interrogation Session [id number] IDCO Type Interrogation Session Remote Device Initiated [facility] IDCO Battery Date Time of Measurements IDCO Battery Status Beginning of Service IDCO Battery Remaining Longevity 36 mo IDCO Battery Remaining Percentage 45 % IDCO Capacitor Last Charge Date Time IDCO Capacitor Charge Time 11.1 s IDCO Capacitor Charge Type Reformation IDCO Capacitor Last Charge Date Time IDCO Capacitor Charge Time 3.8 s IDCO Capacitor Charge Energy 21 J IDCO Capacitor Charge Type Shock IDCO Episode Identifier [id number] IDCO Episode Date Time IDCO Episode Type Category Periodic EGM IDCO Episode Vendor Type Category APMRT IDCO Episode Detection And Therapy Details Presenting EGM IDCO Episode Identifier [id number] IDCO Episode Date Time IDCO Episode Type Category AT/AF IDCO Episode Vendor Type Category ATR IDCO Episode Detection Interval Atrial 180 ms IDCO Episode Detection And Therapy Details ATR IDCO Episode Statistic Type Category VF IDCO Episode Statistic Vendor Type Category VF IDCO Episode Statistic Recent Count 0 IDCO Episode Statistic Recent Date Time Start 20200523 IDCO Episode Statistic Recent Date Time End 20200525 IDCO Episode Statistic Type Category VT IDCO Episode Statistic Vendor Type Category VT IDCO Episode Statistic Recent Count 0 IDCO Episode Statistic Recent Date Time Start 20200523 IDCO Episode Statistic Recent Date Time End 20200525 IDCO Episode Statistic Type Category VT IDCO Episode Statistic Vendor Type Category VT-1 IDCO Episode Statistic Recent Count 0 IDCO Episode Statistic Recent Date Time Start 20200523 IDCO Episode Statistic Recent Date Time End 20200525 IDCO Episode Statistic Type Category Monitor IDCO Episode Statistic Vendor Type Category IDCO Episode Statistic Recent Count 0 IDCO Episode Statistic Recent Date Time Start 20200523 IDCO Episode Statistic Recent Date Time End 20200525 IDCO Episode Statistic Type Category Other IDCO Episode Statistic Vendor Type Category IDCO Episode Statistic Recent Count 0 IDCO Episode Statistic Recent Date Time Start 20200523 IDCO Episode Statistic Recent Date Time End 20200525 IDCO Episode Statistic Type Category VT IDCO Episode Statistic Vendor Type Category NSVT IDCO Episode Statistic Recent Count 0 IDCO Episode Statistic Recent Date Time Start 20200523 IDCO Episode Statistic Recent Date Time End 20200525 IDCO Episode Statistic Type Category AT/AF IDCO Episode Statistic Vendor Type Category ATR IDCO Episode Statistic Recent Count 0 IDCO Episode Statistic Recent Date Time Start 20200523 IDCO Episode Statistic Recent Date Time End 20200525 IDCO Albaro Setting AT Mode Switch Mode [...] E162 IDCO Implantable Pulse Generator Serial Number [id number] IDCO Implantable Pulse Generator Polymerization Oven Operator [place] [employer] IDCO Implantable Pulse Generator Implant Date 20140110 IDCO Implantable Lead Model 4136 IDCO Implantable Lead Serial Number [id number] IDCO Implantable Lead Polymerization Oven Operator Guidant IDCO Implantable Lead Implant Date 20130421 IDCO Implantable Lead Polarity Type Bipolar Lead IDCO Implantable Lead Location Right Atrium IDCO Implantable Lead Model 0292 IDCO Implantable Lead Serial Number [id number] IDCO Implantable Lead Polymerization Oven Operator [place] [employer] IDCO Implantable Lead Implant Date IDCO Implantable Lead Location Right Ventricle IDCO Lead Channel Measurements Date and Time Start 20190921 IDCO Lead Channel Measurements Date and Time End 20200524 IDCO Lead Channel Sensing Intrinsic Amplitude Mean 7.4 mV IDCO Lead Channel Sensing Polarity Bipolar IDCO Lead Channel Pacing Threshold Amplitude 0.7 V IDCO Lead Channel Pacing Threshold Pulse Width 0.5 ms IDCO Lead Channel Pacing Threshold Measurement Method Executive Compensation Analyst Manual IDCO Lead Channel Pacing Threshold Polarity Bipolar IDCO Lead Channel Impedance Value 787 ohms IDCO Lead Channel Impedance Polarity Bipolar IDCO Lead Channel Measurements Date and Time Start 20200523 IDCO Lead Channel Measurements Date and Time End 20200524 IDCO Lead Channel Sensing Intrinsic Amplitude Mean 14.7 mV IDCO Lead Channel Sensing Polarity Bipolar IDCO Lead Channel Pacing Threshold Amplitude 0.6 V IDCO Lead Channel Pacing Threshold Pulse Width 0.5 ms IDCO Lead Channel Pacing Threshold Measurement Method Executive Compensation Analyst Manual IDCO Lead Channel Pacing Threshold Polarity Bipolar IDCO Lead Channel Impedance Value 719 ohms IDCO Lead Channel Impedance Polarity Bipolar IDCO Lead High Voltage Channel Date Time 20200524 IDCO Lead High Voltage Channel Impedance 101 ohms IDCO Lead High Voltage Channel Measurement Type Low Voltage Pulse IDCO Statistic Date Time Start 20200523 IDCO Statistic Date Time End 20200525 IDCO Albaro Statistic Date Time Start 20200523 IDCO Albaro Statistic Date Time End 20200525 IDCO Albaro Statistic RA Percent Paced 0 % IDCO Albaro Statistic RV Percent Paced 15 % IDCO Therapy Statistic Recent Date Time Start 20200523 IDCO Therapy Statistic Recent Date Time End 20200525 IDCO Therapy Statistic Recent Shocks Delivered 0 IDCO Therapy Statistic Total Date Time Start 20140110 IDCO Therapy Statistic Total Date Time End 20200525 IDCO Therapy Statistic Total Shocks Delivered 2 IDCO Therapy Statistic Recent Shocks Aborted 0 IDCO Therapy Statistic Total Shocks Aborted 0 IDCO Therapy Statistic Recent ATP Delivered 0 IDCO Therapy Statistic Total ATP Delivered 2 IDCO Anatomical Region Laterality Modality Other 2020 12:4 2 AM EST Physician Cardiology IMPLANTABLE CARD IAC DEVICE documented in this encounter Visit Diagnoses Not on filedocumented in this encounter Care Teams Respiratory Therapy Aide Relationship Specialty Start Date End Date Dewayne Carrington MD [address] [place] [address] PCP - General 09/02/16 documented as of this encounter
--- OUTSIDE RECORDS SUMMARY | 2023-11-03 01:23 | XMS_ITS | Encounter Summary ---
Author Organization [facility] [place] [address] Care Team Providers Care Heel Emery Buffer Name Role Phone Dewayne Carrington MD Primary Care Provider [phone] Encounter Details Date Type Department Care Team ([facility] st Contact Info) Description 09/12/2020 Notes [place] [address] Loraine Santacruz, MAPPING ANALYST [facility] [place] [address] [address] Social History Tobacco Use Types Packs/Day Years [...] as of this encounter Progress Notes * Loraine Santacruz, MAPPING ANALYST - 09/12/2020 7:58 AM EDT Cardiac Device Remote Monitoring Report Summary Poachable [facility] Latitude 09/12/20 Device: ICD Model: INCEPTA Battery: OK, estimated longevity ~3.5 years Pacing percentage: Atrial 0%, Ventricular 19% Presenting EGM: AF/VS, atrial fibrillation rate 61 bpm Events: September 11, 2020 18:24 Antitachycardia pacing (ATP) X6 therapy delivered to convert rapid atrial fibrillation. Avg a rate 314 bpm, V rate 157 bpm. Since last reset: 2/3/21: Atrial high rate events: 111 days in AT/AF, 3 episodes less than 1 min, 2 episodes >48 hours Ventricular high rate events: 11 (3 ATP- 50% successful, and 9 NSVT) Impression Normal functioning device Paroxysmal- becoming more persistent- atrial fibrillation, event in progress. Anticoagulated on Xarelto, per chart. ATP delivered for rapid ventricular rates in Afib. Telephone call to patient to discuss symptoms, 09/12/20 @ 08:19am. Left voicemail. Follow Up As per schedule - in-clinic and remote Loraine Santacruz APRN documented in this encounter Plan of Treatment Upcoming Encounters Date Type Department Care Team (Late st Contact Info) Description 12/18/2023 10:00 AM EDT Hospital Encounter Non-[place] [address] Arrived documented as of this encounter Visit Diagnoses Not on filedocumented in this encounter Care Teams Heel Emery Buffer Relationship Specialty Start Date End Date Dewayne Carrington MD [address] [place] [address] PCP - General 09/02/16 documented as of this encounter
--- OUTSIDE RECORDS SUMMARY | 2023-11-03 01:23 | XMS_ITS | Encounter Summary ---
[place] [address] Care Team Providers Care Ceramic Coater Name Role Phone Dewayne Carrington MD Primary Care Provider [phone] Encounter Details Date Type Department Care Team (Late st Contact Info) Description 03/16/2020 Orders Only Cardiology at [address] [address] Social History Tobacco Use Types Packs/Day Years [...] AM EDT Hospital Encounter Non[place] [address] Arrived documented as of this encounter Procedures Procedure Name Priority Date/Time Associated Diagnosis Comments CARDIAC DEVICE CHECK - REMOTE DEVICE INITIATED Routine 03/16/2020 12:42 AM EST documented in this encounter Results * Cardiac device check - Remote Device Initiated (03/16/2020 12:42 AM EST) Date Time Interrogation Session [id number] IDCO Type Interrogation Session Remote Device Initiated IDCO Clinic Name [facility] IDCO Battery Date Time of Measurements [id number] IDCO Battery Status Beginning of Service IDCO Battery Remaining Longevity 60 mo IDCO Battery Remaining Percentage 70 % IDCO Capacitor Last Charge Date Time IDCO Capacitor Charge Time 11.0 s IDCO Capacitor Charge Type Reformation IDCO Capacitor Last Charge Date Time [id number] IDCO Capacitor Charge Time 3.8 s IDCO Capacitor Charge Energy 21 J IDCO Capacitor Charge Type Shock IDCO Episode Identifier [id number] IDCO Episode Date Time IDCO Episode Type Category Periodic EGM IDCO Episode Vendor Type Category APMRT IDCO Episode Detection And Therapy Details Presenting EGM IDCO Episode Identifier [id number] IDCO Episode Date Time IDCO Episode Type Category AT/AF IDCO Episode Vendor Type Category ATR IDCO Episode Detection Interval Atrial 238 ms IDCO Episode Detection And Therapy Details ATR IDCO Episode Identifier [id number] IDCO Episode Date Time [id number] IDCO Episode Type Category Other IDCO Episode Vendor Type Category XANDER IDCO Episode Detection Interval Ventricular 923 ms IDCO Episode Duration 45 s IDCO Episode Detection And Therapy Details IDCO Episode Identifier [id number] IDCO Episode Date Time [id number] IDCO Episode Type Category Other IDCO Episode Vendor Type Category XANDER IDCO Episode Detection Interval Ventricular 909 ms IDCO Episode Duration 54 s IDCO Episode Detection And Therapy Details IDCO Episode Identifier [id number] IDCO Episode Date Time [id number] IDCO Episode Type Category Other IDCO Episode Vendor Type Category XANDER IDCO Episode Detection Interval Ventricular 909 ms IDCO Episode Duration 53 s IDCO Episode Detection And Therapy Details IDCO Episode Identifier [id number] IDCO Episode Date Time [id number] IDCO Episode Type Category Other IDCO Episode Vendor Type Category XANDER IDCO Episode Detection Interval Ventricular 923 ms IDCO Episode Duration 54 s IDCO Episode Detection And Therapy Details IDCO Episode Identifier [id number] IDCO Episode Date Time IDCO Episode Type Category Other IDCO Episode Vendor Type Category XANDER IDCO Episode Detection Interval Ventricular 909 ms IDCO Episode Duration 52 s IDCO Episode Detection And Therapy Details IDCO Episode Identifier [facility]-[id number] IDCO Episode Date Time [id number] IDCO Episode Type Category Other IDCO Episode Vendor Type Category XANDER IDCO Episode Detection Interval Ventricular 896 ms IDCO Episode Duration 53 s IDCO Episode Detection And Therapy Details [facility] IDCO Episode Identifier [facility]-[id number] IDCO Episode Date Time [id number] IDCO Episode Type Category Other IDCO Episode Vendor Type Category XANDER IDCO Episode Detection Interval Ventricular 909 ms IDCO Episode Duration 54 s IDCO Episode Detection And Therapy Details [facility] IDCO Episode Identifier [facility]-[id number] IDCO Episode Date Time [id number] IDCO Episode Type Category Other IDCO Episode Vendor Type Category XANDER IDCO Episode Detection Interval Ventricular 968 ms IDCO Episode Duration 57 s IDCO Episode Detection And Therapy Details [facility] IDCO Episode Identifier [facility]-[id number] IDCO Episode Date Time [id number] IDCO Episode Type Category Other IDCO Episode Vendor Type Category XANDER IDCO Episode Detection Interval Ventricular 923 ms IDCO Episode Duration 55 s IDCO Episode Detection And Therapy Details [facility] IDCO Episode Identifier [facility]-[id number] IDCO Episode Date Time [id number] IDCO Episode Type Category Other IDCO Episode Vendor Type Category XANDER IDCO Episode Detection Interval Ventricular 923 ms IDCO Episode Duration 54 s IDCO Episode Detection And Therapy Details [facility] IDCO Episode Identifier [id number] IDCO Episode Date Time [id number] IDCO Episode Type Category AT/AF IDCO Episode Vendor Type Category ATR IDCO Episode Detection Interval Atrial 299 ms IDCO Episode Duration 21,668 s IDCO Episode Detection And Therapy Details ATR IDCO Episode Identifier [id number] IDCO Episode Date Time [id number] IDCO Episode Type Category AT/AF IDCO Episode Vendor Type Category ATR IDCO Episode Detection Interval Atrial 267 ms IDCO Episode Duration 12 s IDCO Episode Detection And Therapy Details ATR IDCO Episode Identifier V IDCO Episode Date Time [id number] IDCO Episode Type Category VT IDCO Episode Vendor Type Category NSVT IDCO Episode Type Induced Flag NO IDCO Episode Detection Interval Ventricular 382 ms IDCO Episode Duration 6 s IDCO Episode Detection And Therapy Details NonSustV IDCO Episode Identifier V IDCO Episode Date Time [id number] IDCO Episode Type Category VT IDCO Episode Vendor Type Category NSVT IDCO Episode Type Induced Flag NO IDCO Episode Detection Interval Ventricular 397 ms IDCO Episode Duration 6 s IDCO Episode Detection And Therapy Details NonSustV IDCO Episode Identifier IDCO Episode Date Time [id number] IDCO Episode Type Category VT IDCO Episode Vendor Type Category NSVT IDCO Episode Type Induced Flag NO IDCO Episode Detection Interval Ventricular 375 ms IDCO Episode Duration 6 s IDCO Episode Detection And Therapy Details NonSustV IDCO Episode Identifier IDCO Episode Date Time [id number] IDCO Episode Type Category VT IDCO Episode Vendor Type Category NSVT IDCO Episode Type Induced Flag NO IDCO Episode Detection Interval Ventricular 375 ms IDCO Episode Duration 6 s IDCO Episode Detection And Therapy Details NonSustV IDCO Episode Identifier IDCO Episode Date Time [id number] IDCO Episode Type Category VT IDCO Episode Vendor Type Category NSVT IDCO Episode Type Induced Flag NO IDCO Episode Detection Interval Ventricular 375 ms IDCO Episode Duration 7 s IDCO Episode Detection And Therapy Details NonSustV IDCO Episode Identifier IDCO Episode Date Time [id number] IDCO Episode Type Category VT IDCO Episode Vendor Type Category NSVT IDCO Episode Type Induced Flag NO IDCO Episode Detection Interval Ventricular 377 ms IDCO Episode Duration 5 s IDCO Episode Detection And Therapy Details NonSustV IDCO Episode Identifier IDCO Episode Date Time [id number] IDCO Episode Type Category VT IDCO Episode Vendor Type Category NSVT IDCO Episode Type Induced Flag NO IDCO Episode Detection Interval Ventricular 429 ms IDCO Episode Duration 6 s IDCO Episode Detection And Therapy Details NonSustV IDCO Episode Identifier IDCO Episode Date Time [id number] IDCO Episode Type Category VT IDCO Episode Vendor Type Category NSVT IDCO Episode Type Induced Flag NO IDCO Episode Detection Interval Ventricular 385 ms IDCO Episode Duration 6 s IDCO Episode Detection And Therapy Details NonSustV IDCO Episode Identifier IDCO Episode Date Time [id number] IDCO Episode Type Category VT IDCO Episode Vendor Type Category NSVT IDCO Episode Type Induced Flag NO IDCO Episode Detection Interval Ventricular 382 ms IDCO Episode Duration 6 s IDCO Episode Detection And Therapy Details NonSustV IDCO Episode Identifier [id number] IDCO Episode Date Time [id number] IDCO Episode Type Category VT IDCO Episode Vendor Type Category NSVT IDCO Episode Type Induced Flag NO IDCO Episode Detection Interval Ventricular 368 ms IDCO Episode Duration 5 s IDCO Episode Detection And Therapy Details NonSustV IDCO Episode Identifier [id number]-429 IDCO Episode Date Time [id number] IDCO Episode Type Category AT/AF IDCO Episode Vendor Type Category ATR IDCO Episode Detection Interval Atrial 271 ms IDCO Episode Duration 1,093,159 s IDCO Episode Detection And Therapy Details ATR IDCO Episode Statistic Type Category VF IDCO Episode Statistic Vendor Type Category VF IDCO Episode Statistic Recent Count 0 IDCO Episode Statistic Recent Date Time Start 20190921 IDCO Episode Statistic Recent Date Time End 20200316 IDCO Episode Statistic Type Category VT IDCO Episode Statistic Vendor Type Category VT IDCO Episode Statistic Recent Count 0 IDCO Episode Statistic Recent Date Time Start 20190921 IDCO Episode Statistic Recent Date Time End 20200316 IDCO Episode Statistic Type Category VT IDCO Episode Statistic Vendor Type Category VT-1 IDCO Episode Statistic Recent Count 1 IDCO Episode Statistic Recent Date Time Start 20190921 IDCO Episode Statistic Recent Date Time End 20200316 IDCO Episode Statistic Type Category Monitor IDCO Episode Statistic Vendor Type Category IDCO Episode Statistic Recent Count 0 IDCO Episode Statistic Recent Date Time Start 20190921 IDCO Episode Statistic Recent Date Time End 20200316 IDCO Episode Statistic Type Category Other IDCO Episode Statistic Vendor Type Category IDCO Episode Statistic Recent Count 8 IDCO Episode Statistic Recent Date Time Start 20190921 IDCO Episode Statistic Recent Date Time End 20200316 IDCO Episode Statistic Type Category VT IDCO Episode Statistic Vendor Type Category NSVT IDCO Episode Statistic Recent Count 215 IDCO Episode Statistic Recent Date Time Start 20190921 IDCO Episode Statistic Recent Date Time End 20200316 IDCO Episode Statistic Type Category AT/AF IDCO Episode Statistic Vendor Type Category ATR IDCO Episode Statistic Recent Count 143 IDCO Episode Statistic Recent Date Time Start 20190921 IDCO Episode Statistic Recent Date Time End 20200316 IDCO Albaro Setting AT Mode Switch Mode [...] E162 IDCO Implantable Pulse Generator Serial Number [id number] IDCO Implantable Pulse Generator Concrete Layer [place] [employer] IDCO Implantable Pulse Generator Implant Date 20140110 IDCO Implantable Lead Model 4136 IDCO Implantable Lead Serial Number [id number] IDCO Implantable Lead Concrete Layer [place]io IDCO Implantable Lead Implant Date 20130421 IDCO Implantable Lead Polarity Type Bipolar Lead IDCO Implantable Lead Location Right Atrium IDCO Implantable Lead Model 0292 IDCO Implantable Lead Serial Number [id number] IDCO Implantable Lead Concrete Layer [place] [employer] IDCO Implantable Lead Implant Date IDCO Implantable Lead Location Right Ventricle IDCO Lead Channel Measurements Date and Time Start 20190921 IDCO Lead Channel Measurements Date and Time End 20200315 IDCO Lead Channel Sensing Intrinsic Amplitude Mean 5.4 mV IDCO Lead Channel Sensing Polarity Bipolar IDCO Lead Channel Pacing Threshold Amplitude 0.7 V IDCO Lead Channel Pacing Threshold Pulse Width 0.5 ms IDCO Lead Channel Pacing Threshold Measurement Method Mincemeat Maker Manual IDCO Lead Channel Pacing Threshold Polarity Bipolar IDCO Lead Channel Impedance Value 797 ohms IDCO Lead Channel Impedance Polarity Bipolar IDCO Lead Channel Measurements Date and Time Start 20190921 IDCO Lead Channel Measurements Date and Time End 20200315 IDCO Lead Channel Sensing Intrinsic Amplitude Mean 12.8 mV IDCO Lead Channel Sensing Polarity Bipolar IDCO Lead Channel Pacing Threshold Amplitude 0.6 V IDCO Lead Channel Pacing Threshold Pulse Width 0.5 ms IDCO Lead Channel Pacing Threshold Measurement Method Mincemeat Maker Manual IDCO Lead Channel Pacing Threshold Polarity Bipolar IDCO Lead Channel Impedance Value 691 ohms IDCO Lead Channel Impedance Polarity Bipolar IDCO Lead High Voltage Channel Date Time 20200315 IDCO Lead High Voltage Channel Impedance 88 ohms IDCO Lead High Voltage Channel Measurement Type Low Voltage Pulse IDCO Statistic Date Time Start 20190921 IDCO Statistic Date Time End 20200316 IDCO Albaro Statistic Date Time Start 20190921 IDCO Albaro Statistic Date Time End 20200316 IDCO Albaro Statistic RA Percent Paced 0 % IDCO Albaro Statistic RV Percent Paced 8 % IDCO Therapy Statistic Recent Date Time Start 20190921 IDCO Therapy Statistic Recent Date Time End 20200316 IDCO Therapy Statistic Recent Shocks Delivered 0 IDCO Therapy Statistic Total Date Time Start 20140110 IDCO Therapy Statistic Total Date Time End 20200316 IDCO Therapy Statistic Total Shocks Delivered 2 IDCO Therapy Statistic Recent Shocks Aborted 0 IDCO Therapy Statistic Total Shocks Aborted 0 IDCO Therapy Statistic Recent ATP Delivered 1 IDCO Therapy Statistic Total ATP Delivered 2 IDCO Anatomical Region Laterality Modality Other 03/16/2020 12:4 2 AM EST Physician Cardiology IMPLANTABLE CARD IAC DEVICE documented in this encounter Visit Diagnoses Not on filedocumented in this encounter Care Teams Ceramic Coater Relationship Specialty Start Date End Date Dewayne Carrington MD [address] [place] [address] PCP - General 09/02/16 documented as of this encounter
--- OUTSIDE RECORDS SUMMARY | 2023-11-03 01:23 | XMS_ITS | Encounter Summary ---
Author Organization [facility] Address [facility] [place] [address] Care Team Providers Care Picc Nurse Name Role Phone Dewayne Carrington MD Primary Care Provider [phone] Encounter Details Date Type Department Care Team (Late st Contact Info) Description 03/16/2020 Notes Only Cardiology at [address] [place] [address] Edy Burns PA [facility] [place] [address] Social History Tobacco Use Types Packs/Day Years [...] Progress Notes * Edy Burns PA - 03/16/2020 11:46 AM EST Cardiac Electrophysiology Cardiac Implantable Electronic Device Remote Monitoring Interpretation Marquez Hendrix [id number] Transmission Date: 03/16/2020 Device Type: ICD Generator: [employer] Incepta E162 SN: [id number] Implanted: 04/17/14 Battery Status: 5 years Charge Time: 11 sec Atrial lead status: Amplitude: 5.4 mV Impedance: 797 ? Threshold: 0.7 V @ 0.5 ms Right ventricular lead status: Amplitude: 12.8 mV Impedance: 691 ? Threshold: 0.6 V @ 0.5 ms Shock Impedance: 88 ? Atrial Pacin% Ventricular Pacin% Alerts: Mar 15, 2020 19:00 Atrial Arrhythmia [place] of at least 24.0 hours in a 24 hour period. Events/Arrhythmias noted since last reset (September 21 2019): Mar 14, 2020 10:39 ATR at 252 bpm Mar 13, 2020 13:59 ATR at 201 bpm Mar 13, 2020 13:45 ATR at 225 bpm Feb 14, 2020 17:57 NonSustV at 157 bpm, Nonsustained Feb 14, 2020 17:17 NonSustV at 151 bpm, Nonsustained Feb 14, 2020 16:52 NonSustV at 160 bpm, Nonsustained Feb 14, 2020 16:49 NonSustV at 160 bpm, Nonsustained Feb 14, 2020 16:31 NonSustV at 160 bpm, Nonsustained Feb 14, 2020 16:27 NonSustV at 159 bpm, Nonsustained Feb 14, 2020 15:57 NonSustV at 140 bpm, Nonsustained Feb 14, 2020 15:52 NonSustV at 156 bpm, Nonsustained Feb 14, 2020 15:49 NonSustV at 157 bpm, Nonsustained Feb 14, 2020 15:49 NonSustV at 163 bpm, Nonsustained Feb 05, 2020 01:10 ATR at 221 bpm Feb 05, 2020 01:01 ATR at 215 bpm Feb 01, 2020 15:45 ATR at 222 bpm Jan 23, 2020 23:24 ATR at 243 bpm Jan 23, 2020 21:05 ATR at 68 bpm Jan 23, 2020 16:56 ATR at 72 bpm Jan 23, 2020 02:03 ATR at 245 bpm Oct 25, 2019 18:08 VT-1 at 161 bpm, No Therapy Oct 25, 2019 18:03 VT-1 at 164 bpm, No Therapy Oct 25, 2019 18:02 VT-1 at 168 bpm, No Therapy Oct 25, 2019 17:59 VT-1 at 168 bpm, No Therapy Oct 25, 2019 17:56 VT-1 at 162 bpm, No Therapy Oct 25, 2019 17:51 VT-1 at 158 bpm, No Therapy Oct 25, 2019 17:45 VT-1 at 160 bpm, No Therapy Oct 25, 2019 17:26 VT-1 at 170 bpm, ATPx1 Oct 25, 2019 17:17 VT-1 at 165 bpm, No Therapy Impression: Known paroxysmal A-FIB. All NSV episodes 7 sec or less. Patient is anticoagulated on Xarelto Normally functioning device Edy Burns PA-C 03/16/2020 Pager [phone] documented in this encounter Plan of Treatment Upcoming Encounters Date Type Department Care Team (Late st Contact Info) Description 12/18/2023 10:00 AM EDT Hospital Encounter Non-[place] [address] Arrived documented as of this encounter Visit Diagnoses Not on filedocumented in this encounter Care Teams Picc Nurse Relationship Specialty Start Date End Date Dewayne Carrington MD [address] [place] [address] PCP - General 09/02/16 documented as of this encounter
--- OUTSIDE RECORDS SUMMARY | 2023-11-03 01:23 | XMS_ITS | Encounter Summary ---
[place] [address] Care Team Providers Care Appellate Court Clerk Name Role Phone Dewayne Carrington MD Primary Care Provider [phone] Encounter Details Date Type Department Care Team (Late st Contact Info) Description 09/14/2020 Orders Only Cardiology at [address] [address] Social History Tobacco Use Types Packs/Day Years [...] AM EDT Hospital Encounter [place] [address] Arrived documented as of this encounter Procedures Procedure Name Priority Date/Time Associated Diagnosis Comments CARDIAC DEVICE CHECK - REMOTE DEVICE INITIATED Routine 09/14/2020 12:42 AM EDT documented in this encounter Results * Cardiac device check - Remote Device Initiated (09/14/2020 12:42 AM EDT) Pathologist [facility] Date Time Interrogation Session [id number] IDCO Type Interrogation Session Remote Device Initiated IDCO Clinic Name [facility] IDCO Battery Date Time of Measurements [id number] IDCO Battery Status Beginning of Service IDCO Battery Remaining Longevity 42 mo IDCO Battery Remaining Percentage 46 % IDCO Capacitor Last Charge Date Time [id number] IDCO Capacitor Charge Time 11.2 s IDCO Capacitor Charge Type Reformation IDCO Capacitor Last Charge Date Time [id number] IDCO Capacitor Charge Time 3.8 s IDCO Capacitor Charge Energy 21 J IDCO Capacitor Charge Type Shock IDCO Episode Identifier APM-55 IDCO Episode Date Time [id number] IDCO Episode Type Category Periodic EGM IDCO Episode Vendor Type Category APMRT IDCO Episode Detection And Therapy Details Presenting EGM IDCO Episode Identifier V-219 IDCO Episode Date Time IDCO Episode Type Category VT IDCO Episode Vendor Type Category NSVT IDCO Episode Type Induced Flag NO IDCO Episode Detection Interval Ventricular 357 ms IDCO Episode Duration 4 s IDCO Episode Detection And Therapy Details NonSustV IDCO Episode Identifier ATR-447 IDCO Episode Date Time IDCO Episode Type Category AT/AF IDCO Episode Vendor Type Category ATR IDCO Episode Detection Interval Atrial 165 ms IDCO Episode Detection And Therapy Details ATR IDCO Episode Identifier [id number] IDCO Episode Date Time IDCO Episode Type Category VT IDCO Episode Vendor Type Category NSVT IDCO Episode Type Induced Flag NO IDCO Episode Detection Interval Ventricular 330 ms IDCO Episode Duration 15 s IDCO Episode Detection And Therapy Details NonSustV IDCO Episode Identifier ATR-446 IDCO Episode Date Time IDCO Episode Type Category AT/AF IDCO Episode Vendor Type Category ATR IDCO Episode Detection Interval Atrial 203 ms IDCO Episode Duration 14 s IDCO Episode Detection And Therapy Details ATR IDCO Episode Identifier ATR-445 IDCO Episode Date Time IDCO Episode Type Category AT/AF IDCO Episode Vendor Type Category ATR IDCO Episode Detection Interval Atrial 178 ms IDCO Episode Duration IDCO Episode Detection And Therapy Details ATR IDCO Episode Identifier ATR-444 IDCO Episode Date Time IDCO Episode Type Category AT/AF IDCO Episode Vendor Type Category ATR IDCO Episode Detection Interval Atrial 177 ms IDCO Episode Duration 6 s IDCO Episode Detection And Therapy Details ATR IDCO Episode Identifier ATR-443 IDCO Episode Date Time IDCO Episode Type Category AT/AF IDCO Episode Vendor Type Category ATR IDCO Episode Detection Interval Atrial 178 ms IDCO Episode Duration IDCO Episode Detection And Therapy Details ATR IDCO Episode Identifier ATR-442 IDCO Episode Date Time IDCO Episode Type Category AT/AF IDCO Episode Vendor Type Category ATR IDCO Episode Detection Interval Atrial 194 ms IDCO Episode Duration 1 s IDCO Episode Detection And Therapy Details ATR IDCO Episode Identifier ATR-441 IDCO Episode Date Time IDCO Episode Type Category AT/AF IDCO Episode Vendor Type Category ATR IDCO Episode Detection Interval Atrial 192 ms IDCO Episode Duration IDCO Episode Detection And Therapy Details ATR IDCO Episode Identifier ATR-440 IDCO Episode Date Time IDCO Episode Type Category AT/AF IDCO Episode Vendor Type Category ATR IDCO Episode Detection Interval Atrial 192 ms IDCO Episode Duration IDCO Episode Detection And Therapy Details ATR IDCO Episode Identifier ATR-439 IDCO Episode Date Time IDCO Episode Type Category AT/AF IDCO Episode Vendor Type Category ATR IDCO Episode Detection Interval Atrial 184 ms IDCO Episode Duration IDCO Episode Detection And Therapy Details ATR IDCO Episode Identifier V-2187 IDCO Episode Date Time IDCO Episode Type Category VT IDCO Episode Vendor Type Category VT-1 IDCO Episode Type Induced Flag NO IDCO Episode Detection Interval Ventricular 385 ms IDCO Episode Duration 127 s IDCO Episode Detection And Therapy Details VT-1 ATPx9 IDCO Episode Identifier V-2186 IDCO Episode Date Time IDCO Episode Type Category VT IDCO Episode Vendor Type Category NSVT IDCO Episode Type Induced Flag NO IDCO Episode Detection Interval Ventricular 377 ms IDCO Episode Duration 6 s IDCO Episode Detection And Therapy Details NonSustV IDCO Episode Identifier ATR-438 IDCO Episode Date Time [id number] IDCO Episode Type Category AT/AF IDCO Episode Vendor Type Category ATR IDCO Episode Detection Interval Atrial 171 ms IDCO Episode Duration 170,171 s IDCO Episode Detection And Therapy Details ATR IDCO Episode Statistic Type Category VF IDCO Episode Statistic Vendor Type Category VF IDCO Episode Statistic Recent Count 0 IDCO Episode Statistic Recent Date Time Start 20200523 IDCO Episode Statistic Recent Date Time End 20200914 IDCO Episode Statistic Type Category VT IDCO Episode Statistic Vendor Type Category VT IDCO Episode Statistic Recent Count 0 IDCO Episode Statistic Recent Date Time Start 20200523 IDCO Episode Statistic Recent Date Time End 20200914 IDCO Episode Statistic Type Category VT IDCO Episode Statistic Vendor Type Category VT-1 IDCO Episode Statistic Recent Count 3 IDCO Episode Statistic Recent Date Time Start 20200523 IDCO Episode Statistic Recent Date Time End 20200914 IDCO Episode Statistic Type Category Monitor IDCO Episode Statistic Vendor Type Category IDCO Episode Statistic Recent Count 0 IDCO Episode Statistic Recent Date Time Start 20200523 IDCO Episode Statistic Recent Date Time End 20200914 IDCO Episode Statistic Type Category Other IDCO Episode Statistic Vendor Type Category IDCO Episode Statistic Recent Count 0 IDCO Episode Statistic Recent Date Time Start 20200523 IDCO Episode Statistic Recent Date Time End 20200914 IDCO Episode Statistic Type Category VT IDCO Episode Statistic Vendor Type Category NSVT IDCO Episode Statistic Recent Count 12 IDCO Episode Statistic Recent Date Time Start 20200523 IDCO Episode Statistic Recent Date Time End 20200914 IDCO Episode Statistic Type Category AT/AF IDCO Episode Statistic Vendor Type Category ATR IDCO Episode Statistic Recent Count 14 IDCO Episode Statistic Recent Date Time Start 20200523 IDCO Episode Statistic Recent Date Time End 20200914 IDCO Albaro Setting AT Mode Switch Mode [...] E162 IDCO Implantable Pulse Generator Serial Number [id number] IDCO Implantable Pulse Generator Dental Service Technician [place] [employer] IDCO Implantable Pulse Generator Implant Date 20140110 IDCO Implantable Lead Model 4136 IDCO Implantable Lead Serial Number [id number] IDCO Implantable Lead Dental Service Technician Guidant IDCO Implantable Lead Implant Date 20130421 IDCO Implantable Lead Polarity Type Bipolar Lead IDCO Implantable Lead Location Right Atrium IDCO Implantable Lead Model 0292 IDCO Implantable Lead Serial Number [id number] IDCO Implantable Lead Dental Service Technician [employer] [employer] IDCO Implantable Lead Implant Date IDCO Implantable Lead Location Right Ventricle IDCO Lead Channel Measurements Date and Time Start 20190921 IDCO Lead Channel Measurements Date and Time End 20200913 IDCO Lead Channel Sensing Intrinsic Amplitude Mean 0.6 mV IDCO Lead Channel Sensing Polarity Bipolar IDCO Lead Channel Pacing Threshold Amplitude 0.7 V IDCO Lead Channel Pacing Threshold Pulse Width 0.5 ms IDCO Lead Channel Pacing Threshold Measurement Method Production Administrator Manual IDCO Lead Channel Pacing Threshold Polarity Bipolar IDCO Lead Channel Impedance Value 752 ohms IDCO Lead Channel Impedance Polarity Bipolar IDCO Lead Channel Measurements Date and Time Start 20200523 IDCO Lead Channel Measurements Date and Time End 20200913 IDCO Lead Channel Sensing Intrinsic Amplitude Mean 11.9 mV IDCO Lead Channel Sensing Polarity Bipolar IDCO Lead Channel Pacing Threshold Amplitude 0.6 V IDCO Lead Channel Pacing Threshold Pulse Width 0.5 ms IDCO Lead Channel Pacing Threshold Measurement Method Production Administrator Manual IDCO Lead Channel Pacing Threshold Polarity Bipolar IDCO Lead Channel Impedance Value 633 ohms IDCO Lead Channel Impedance Polarity Bipolar IDCO Lead High Voltage Channel Date Time 20200913 IDCO Lead High Voltage Channel Impedance 82 ohms IDCO Lead High Voltage Channel Measurement Type Low Voltage Pulse IDCO Statistic Date Time Start 20200523 IDCO Statistic Date Time End 20200914 IDCO Albaro Statistic Date Time Start 20200523 IDCO Albaro Statistic Date Time End 20200914 IDCO Albaro Statistic RA Percent Paced 0 % IDCO Albaro Statistic RV Percent Paced 19 % IDCO Therapy Statistic Recent Date Time Start 20200523 IDCO Therapy Statistic Recent Date Time End 20200914 IDCO Therapy Statistic Recent Shocks Delivered 0 IDCO Therapy Statistic Total Date Time Start 20140110 IDCO Therapy Statistic Total Date Time End 20200914 IDCO Therapy Statistic Total Shocks Delivered 2 IDCO Therapy Statistic Recent Shocks Aborted 0 IDCO Therapy Statistic Total Shocks Aborted 0 IDCO Therapy Statistic Recent ATP Delivered 5 IDCO Therapy Statistic Total ATP Delivered 7 IDCO Anatomical Region Laterality Modality Other 09/14/2020 12:4 2 AM EDT Physician Cardiology IMPLANTABLE CARD IAC DEVICE documented in this encounter Visit Diagnoses Not on filedocumented in this encounter Care Teams Appellate Court Clerk Relationship Specialty Start Date End Date Dewayne Carrington MD [address] [place] [address] PCP - General 09/02/16 documented as of this encounter
--- OUTSIDE RECORDS SUMMARY | 2023-11-03 01:23 | XMS_ITS | Encounter Summary ---
Author Organization [facility] Address [facility] [place] [address] Care Team Providers Care Gang Head Saw Operator Name Role Phone Dewayne Carrintgon MD Primary Care Provider [phone] Encounter Details Date Type Department Care Team (Late st Contact Info) Description 08/21/2020 Notes Only Cardiology at [address] [address] Edy Torres PA [facility] [place] [address] Social History Tobacco Use Types Packs/Day Years [...] Progress Notes * Edy Torres PA - 08/21/2020 7:27 AM EDT Cardiac Electrophysiology Cardiac Implantable Electronic Device Remote Monitoring Interpretation Transmission Date: 08/21/2020 Device Home Health Rn and Type: [place] [employer] dual lead ICD Battery Status: good; est long 3.5yrs Atrial lead status: good Right ventricular lead status: good Left ventricular lead status: n/a Pacin % Atrial pacing 19 % Ventricular pacing Physiologic Monitoring: Events/Arrhythmias noted since last reset : 08/20/2020 ATP delivered for rapidly conducted AT/flutter- no conversion; ATR remains in progress 08/20 1248 - VR 119 Impression: Normally functioning device Hx of PAF, anticoagulated with xarelto ATP has been applied in the past(67% successful) Provider: MAXIMO Leija EP Consult attending physician: Claudette Matos MD documented in this encounter Plan of Treatment Upcoming Encounters Date Type Department Care Team (Late st Contact Info) Description 12/18/2023 10:00 AM EDT Hospital Encounter Non-Invasive [place] [address] Arrived documented as of this encounter Visit Diagnoses Not on filedocumented in this encounter Care Teams Gang Head Saw Operator Relationship Specialty Start Date End Date Dewayne Carrington MD [address] [place] [address] PCP - General 09/02/16 documented as of this encounter
--- OUTSIDE RECORDS SUMMARY | 2023-11-03 01:23 | XMS_ITS | Encounter Summary ---
[place] [address] Care Team Providers Care Athletics Director Name Role Phone Dewayne Carrington MD Primary Care Provider [phone] Encounter Details Date Type Department Care Team (Late st Contact Info) Description 04/16/2020 Orders Only Cardiology at [address] [address] Social History Tobacco Use Types Packs/Day Years [...] AM EDT Hospital Encounter Non-[place] [address] Arrived documented as of this encounter Procedures Procedure Name Priority Date/Time Associated Diagnosis Comments CARDIAC DEVICE CHECK - REMOTE DEVICE INITIATED Routine 04/16/2020 12:41 AM EST documented in this encounter Results * Cardiac device check - Remote Device Initiated (04/16/2020 12:41 AM EST) Date Time Interrogation Session [id number] IDCO Type Interrogation Session Remote Device Initiated IDCO Clinic Name [facility] IDCO Battery Date Time of Measurements [id number] IDCO Battery Status Beginning of Service IDCO Battery Remaining Longevity 42 mo IDCO Battery Remaining Percentage 51 % IDCO Capacitor Last Charge Date Time [id number] IDCO Capacitor Charge Time 11.1 s IDCO Capacitor Charge Type Reformation IDCO Capacitor Last Charge Date Time [id number] IDCO Capacitor Charge Time 3.8 s IDCO Capacitor Charge Energy 21 J IDCO Capacitor Charge Type Shock IDCO Episode Identifier APM-49 IDCO Episode Date Time [id number] IDCO Episode Type Category Periodic EGM IDCO Episode Vendor Type Category APMRT IDCO Episode Detection And Therapy Details Presenting EGM IDCO Episode Identifier V-[id number] IDCO Episode Date Time [id number] IDCO Episode Type Category VT IDCO Episode Vendor Type Category NSVT IDCO Episode Type Induced Flag NO IDCO Episode Detection Interval Ventricular 395 ms IDCO Episode Duration 8 s IDCO Episode Detection And Therapy Details NonSustV IDCO Episode Identifier IDCO Episode Date Time [id number] IDCO Episode Type Category VT IDCO Episode Vendor Type Category NSVT IDCO Episode Type Induced Flag NO IDCO Episode Detection Interval Ventricular 395 ms IDCO Episode Duration 9 s IDCO Episode Detection And Therapy Details NonSustV IDCO Episode Identifier IDCO Episode Date Time [id number] IDCO Episode Type Category VT IDCO Episode Vendor Type Category NSVT IDCO Episode Type Induced Flag NO IDCO Episode Detection Interval Ventricular 380 ms IDCO Episode Duration 8 s IDCO Episode Detection And Therapy Details NonSustV IDCO Episode Identifier IDCO Episode Date Time [id number] IDCO Episode Type Category VT IDCO Episode Vendor Type Category NSVT IDCO Episode Type Induced Flag NO IDCO Episode Detection Interval Ventricular 385 ms IDCO Episode Duration 8 s IDCO Episode Detection And Therapy Details NonSustV IDCO Episode Identifier IDCO Episode Date Time [id number] IDCO Episode Type Category VT IDCO Episode Vendor Type Category NSVT IDCO Episode Type Induced Flag NO IDCO Episode Detection Interval Ventricular 382 ms IDCO Episode Duration 7 s IDCO Episode Detection And Therapy Details NonSustV IDCO Episode Identifier IDCO Episode Date Time [id number] IDCO Episode Type Category VT IDCO Episode Vendor Type Category NSVT IDCO Episode Type Induced Flag NO IDCO Episode Detection Interval Ventricular 380 ms IDCO Episode Duration 7 s IDCO Episode Detection And Therapy Details NonSustV IDCO Episode Identifier V-2165 IDCO Episode Date Time [id number] IDCO Episode Type Category VT IDCO Episode Vendor Type Category NSVT IDCO Episode Type Induced Flag NO IDCO Episode Detection Interval Ventricular 387 ms IDCO Episode Duration 8 s IDCO Episode Detection And Therapy Details NonSustV IDCO Episode Identifier V-2164 IDCO Episode Date Time [id number] IDCO Episode Type Category VT IDCO Episode Vendor Type Category NSVT IDCO Episode Type Induced Flag NO IDCO Episode Detection Interval Ventricular 392 ms IDCO Episode Duration 8 s IDCO Episode Detection And Therapy Details NonSustV IDCO Episode Identifier V-2163 IDCO Episode Date Time [id number] IDCO Episode Type Category VT IDCO Episode Vendor Type Category NSVT IDCO Episode Type Induced Flag NO IDCO Episode Detection Interval Ventricular 385 ms IDCO Episode Duration 8 s IDCO Episode Detection And Therapy Details NonSustV IDCO Episode Identifier V-2162 IDCO Episode Date Time [id number] IDCO Episode Type Category VT IDCO Episode Vendor Type Category NSVT IDCO Episode Type Induced Flag NO IDCO Episode Detection Interval Ventricular 390 ms IDCO Episode Duration 9 s IDCO Episode Detection And Therapy Details NonSustV IDCO Episode Identifier ATR-432 IDCO Episode Date Time [id number] IDCO Episode Type Category AT/AF IDCO Episode Vendor Type Category ATR IDCO Episode Detection Interval Atrial 238 ms IDCO Episode Detection And Therapy Details ATR IDCO Episode Statistic Type Category VF IDCO Episode Statistic Vendor Type Category VF IDCO Episode Statistic Recent Count 0 IDCO Episode Statistic Recent Date Time Start 20190921 IDCO Episode Statistic Recent Date Time End 20200416 IDCO Episode Statistic Type Category VT IDCO Episode Statistic Vendor Type Category VT IDCO Episode Statistic Recent Count 0 IDCO Episode Statistic Recent Date Time Start 20190921 IDCO Episode Statistic Recent Date Time End 20200416 IDCO Episode Statistic Type Category VT IDCO Episode Statistic Vendor Type Category VT-1 IDCO Episode Statistic Recent Count 1 IDCO Episode Statistic Recent Date Time Start 20190921 IDCO Episode Statistic Recent Date Time End 20200416 IDCO Episode Statistic Type Category Monitor IDCO Episode Statistic Vendor Type Category IDCO Episode Statistic Recent Count 0 IDCO Episode Statistic Recent Date Time Start 20190921 IDCO Episode Statistic Recent Date Time End 20200416 IDCO Episode Statistic Type Category Other IDCO Episode Statistic Vendor Type Category IDCO Episode Statistic Recent Count 8 IDCO Episode Statistic Recent Date Time Start 20190921 IDCO Episode Statistic Recent Date Time End 20200416 IDCO Episode Statistic Type Category VT IDCO Episode Statistic Vendor Type Category NSVT IDCO Episode Statistic Recent Count 253 IDCO Episode Statistic Recent Date Time Start 20190921 IDCO Episode Statistic Recent Date Time End 20200416 IDCO Episode Statistic Type Category AT/AF IDCO Episode Statistic Vendor Type Category ATR IDCO Episode Statistic Recent Count 143 IDCO Episode Statistic Recent Date Time Start 20190921 IDCO Episode Statistic Recent Date Time End 20200416 IDCO Albaro Setting AT Mode Switch Mode VDIR IDCO Albaro Setting AT Mode Switch Rate 170 {beats}/ min IDCO Albaro Setting Mode (NBG Code) DDDR IDCO Ablaro Setting Lower Rate Limit 55 {beats}/ min [...] E162 IDCO Implantable Pulse Generator Serial Number [id number] IDCO Implantable Pulse Generator Valve Grinder [place] [employer] IDCO Implantable Pulse Generator Implant Date 20140110 IDCO Implantable Lead Model 4136 IDCO Implantable Lead Serial Number [id number] IDCO Implantable Lead Valve Grinder Guidant IDCO Implantable Lead Implant Date 20130421 IDCO Implantable Lead Polarity Type Bipolar Lead IDCO Implantable Lead Location Right Atrium IDCO Implantable Lead Model 0292 IDCO Implantable Lead Serial Number [id number] IDCO Implantable Lead Valve Grinder [employer] IDCO Implantable Lead Implant Date IDCO Implantable Lead Location Right Ventricle IDCO Lead Channel Measurements Date and Time Start 20190921 IDCO Lead Channel Measurements Date and Time End 20200415 IDCO Lead Channel Sensing Intrinsic Amplitude Mean 2.5 mV IDCO Lead Channel Sensing Polarity Bipolar IDCO Lead Channel Pacing Threshold Amplitude 0.7 V IDCO Lead Channel Pacing Threshold Pulse Width 0.5 ms IDCO Lead Channel Pacing Threshold Measurement Method [place] Clerk Manual IDCO Lead Channel Pacing Threshold Polarity Bipolar IDCO Lead Channel Impedance Value 693 ohms IDCO Lead Channel Impedance Polarity Bipolar IDCO Lead Channel Measurements Date and Time Start 20190921 IDCO Lead Channel Measurements Date and Time End 20200415 IDCO Lead Channel Sensing Intrinsic Amplitude Mean 10.7 mV IDCO Lead Channel Sensing Polarity Bipolar IDCO Lead Channel Pacing Threshold Amplitude 0.6 V IDCO Lead Channel Pacing Threshold Pulse Width 0.5 ms IDCO Lead Channel Pacing Threshold Measurement Method [place] Clerk Manual IDCO Lead Channel Pacing Threshold Polarity Bipolar IDCO Lead Channel Impedance Value 651 ohms IDCO Lead Channel Impedance Polarity Bipolar IDCO Lead High Voltage Channel Date Time 20200415 IDCO Lead High Voltage Channel Impedance 84 ohms IDCO Lead High Voltage Channel Measurement Type Low Voltage Pulse IDCO Statistic Date Time Start 20190921 IDCO Statistic Date Time End 20200416 IDCO Albaro Statistic Date Time Start 20190921 IDCO Albaro Statistic Date Time End 20200416 IDCO Albaro Statistic RA Percent Paced 0 % IDCO Albaro Statistic RV Percent Paced 16 % IDCO Therapy Statistic Recent Date Time Start 20190921 IDCO Therapy Statistic Recent Date Time End 20200416 IDCO Therapy Statistic Recent Shocks Delivered 0 IDCO Therapy Statistic Total Date Time Start 20140110 IDCO Therapy Statistic Total Date Time End 20200416 IDCO Therapy Statistic Total Shocks Delivered 2 IDCO Therapy Statistic Recent Shocks Aborted 0 IDCO Therapy Statistic Total Shocks Aborted 0 IDCO Therapy Statistic Recent ATP Delivered 1 IDCO Therapy Statistic Total ATP Delivered 2 IDCO Anatomical Region Laterality Modality Other 04/16/2020 12:4 1 AM EST Physician Cardiology IMPLANTABLE CARD IAC DEVICE documented in this encounter Visit Diagnoses Not on filedocumented in this encounter Care Teams Athletics Director Relationship Specialty Start Date End Date Dewayne Carrington MD [address] [place] [address] PCP - General 09/02/16 documented as of this encounter
--- OUTSIDE RECORDS SUMMARY | 2023-11-03 01:23 | XMS_ITS | Encounter Summary ---
[place] [address] Care Team Providers Care Recoil Spring Winder Name Role Phone Dewayne Carrington MD Primary Care Provider [phone] Encounter Details Date Type Department Care Team (Late st Contact Info) Description 08/21/2020 Orders Only Cardiology at [address] [address] Social History Tobacco Use Types Packs/Day Years [...] AM EDT Hospital Encounter Non[place] [address] Arrived documented as of this encounter Procedures Procedure Name Priority Date/Time Associated Diagnosis Comments CARDIAC DEVICE CHECK - REMOTE DEVICE INITIATED Routine 08/21/2020 12:42 AM EDT documented in this encounter Results * Cardiac device check - Remote Device Initiated (08/21/2020 12:42 AM EDT) Pathologist [facility] Date Time Interrogation Session [id number] IDCO Type Interrogation Session Remote Device Initiated IDCO Clinic Name [facility] Shirin [facility] IDCO Battery Date Time of Measurements [id number] IDCO Battery Status Beginning of Service IDCO Battery Remaining Longevity 42 mo IDCO Battery Remaining Percentage 47 % IDCO Capacitor Last Charge Date Time [id number] IDCO Capacitor Charge Time 11.2 s IDCO Capacitor Charge Type Reformation IDCO Capacitor Last Charge Date Time IDCO Capacitor Charge Time 3.8 s IDCO Capacitor Charge Energy 21 J IDCO Capacitor Charge Type Shock IDCO Episode Identifier APM-52 IDCO Episode Date Time IDCO Episode Type Category Periodic EGM IDCO Episode Vendor Type Category APMRT IDCO Episode Detection And Therapy Details Presenting EGM IDCO Episode Identifier [id number] IDCO Episode Date Time IDCO Episode Type Category AT/AF IDCO Episode Vendor Type Category ATR IDCO Episode Detection Interval Atrial 169 ms IDCO Episode Detection And Therapy Details ATR IDCO Episode Identifier [id number]-434 IDCO Episode Date Time IDCO Episode Type Category AT/AF IDCO Episode Vendor Type Category ATR IDCO Episode Detection Interval Atrial 182 ms IDCO Episode Duration IDCO Episode Detection And Therapy Details ATR IDCO Episode Identifier V-7 IDCO Episode Date Time IDCO Episode Type Category VT IDCO Episode Vendor Type Category VT-1 IDCO Episode Type Induced Flag NO IDCO Episode Detection Interval Ventricular 382 ms IDCO Episode Duration 47 s IDCO Episode Detection And Therapy Details VT-1 ATPx3 IDCO Episode Identifier [id number] IDCO Episode Date Time [id number] IDCO Episode Type Category VT IDCO Episode Vendor Type Category NSVT IDCO Episode Type Induced Flag NO IDCO Episode Detection Interval Ventricular 435 ms IDCO Episode Duration 9 s IDCO Episode Detection And Therapy Details NonSustV IDCO Episode Identifier ATR-433 IDCO Episode Date Time IDCO Episode Type Category AT/AF IDCO Episode Vendor Type Category ATR IDCO Episode Detection Interval Atrial 180 ms IDCO Episode Duration 7,692,402 s IDCO Episode Detection And Therapy Details ATR IDCO Episode Statistic Type Category VF IDCO Episode Statistic Vendor Type Category VF IDCO Episode Statistic Recent Count 0 IDCO Episode Statistic Recent Date Time Start 20200523 IDCO Episode Statistic Recent Date Time End 20200821 IDCO Episode Statistic Type Category VT IDCO Episode Statistic Vendor Type Category VT IDCO Episode Statistic Recent Count 0 IDCO Episode Statistic Recent Date Time Start 20200523 IDCO Episode Statistic Recent Date Time End 20200821 IDCO Episode Statistic Type Category VT IDCO Episode Statistic Vendor Type Category VT-1 IDCO Episode Statistic Recent Count 1 IDCO Episode Statistic Recent Date Time Start 20200523 IDCO Episode Statistic Recent Date Time End 20200821 IDCO Episode Statistic Type Category Monitor IDCO Episode Statistic Vendor Type Category IDCO Episode Statistic Recent Count 0 IDCO Episode Statistic Recent Date Time Start 20200523 IDCO Episode Statistic Recent Date Time End 20200821 IDCO Episode Statistic Type Category Other IDCO Episode Statistic Vendor Type Category IDCO Episode Statistic Recent Count 0 IDCO Episode Statistic Recent Date Time Start 20200523 IDCO Episode Statistic Recent Date Time End 20200821 IDCO Episode Statistic Type Category VT IDCO Episode Statistic Vendor Type Category NSVT IDCO Episode Statistic Recent Count 1 IDCO Episode Statistic Recent Date Time Start 20200523 IDCO Episode Statistic Recent Date Time End 20200821 IDCO Episode Statistic Type Category AT/AF IDCO Episode Statistic Vendor Type Category ATR IDCO Episode Statistic Recent Count 2 IDCO Episode Statistic Recent Date Time Start 20200523 IDCO Episode Statistic Recent Date Time End 20200821 IDCO Albaro Setting AT Mode Switch Mode [...] E162 IDCO Implantable Pulse Generator Serial Number [id number] IDCO Implantable Pulse Generator Card Puncher [place] [employer] Scientific IDCO Implantable Pulse Generator Implant Date 20140110 IDCO Implantable Lead Model 4136 IDCO Implantable Lead Serial Number [id number] IDCO Implantable Lead Card Puncher Guidant IDCO Implantable Lead Implant Date 20130421 IDCO Implantable Lead Polarity Type Bipolar Lead IDCO Implantable Lead Location Right Atrium IDCO Implantable Lead Model 0292 IDCO Implantable Lead Serial Number [id number] IDCO Implantable Lead Card Puncher [place] Patent Scientific IDCO Implantable Lead Implant Date IDCO Implantable Lead Location Right Ventricle IDCO Lead Channel Measurements Date and Time Start 20190921 IDCO Lead Channel Measurements Date and Time End 20200819 IDCO Lead Channel Sensing Intrinsic Amplitude Mean 2.5 mV IDCO Lead Channel Sensing Polarity Bipolar IDCO Lead Channel Pacing Threshold Amplitude 0.7 V IDCO Lead Channel Pacing Threshold Pulse Width 0.5 ms IDCO Lead Channel Pacing Threshold Measurement Method Gas Engine Operator Compressors Manual IDCO Lead Channel Pacing Threshold Polarity Bipolar IDCO Lead Channel Impedance Value 763 ohms IDCO Lead Channel Impedance Polarity Bipolar IDCO Lead Channel Measurements Date and Time Start 20200523 IDCO Lead Channel Measurements Date and Time End 20200819 IDCO Lead Channel Sensing Intrinsic Amplitude Mean 12.6 mV IDCO Lead Channel Sensing Polarity Bipolar IDCO Lead Channel Pacing Threshold Amplitude 0.6 V IDCO Lead Channel Pacing Threshold Pulse Width 0.5 ms IDCO Lead Channel Pacing Threshold Measurement Method Gas Engine Operator Compressors Manual IDCO Lead Channel Pacing Threshold Polarity Bipolar IDCO Lead Channel Impedance Value 625 ohms IDCO Lead Channel Impedance Polarity Bipolar IDCO Lead High Voltage Channel Date Time 20200819 IDCO Lead High Voltage Channel Impedance 84 ohms IDCO Lead High Voltage Channel Measurement Type Low Voltage Pulse IDCO Statistic Date Time Start 20200523 IDCO Statistic Date Time End 20200821 IDCO Albaro Statistic Date Time Start 20200523 IDCO Albaro Statistic Date Time End 20200821 IDCO Albaro Statistic RA Percent Paced 0 % IDCO Albaro Statistic RV Percent Paced 19 % IDCO Therapy Statistic Recent Date Time Start 20200523 IDCO Therapy Statistic Recent Date Time End 20200821 IDCO Therapy Statistic Recent Shocks Delivered 0 IDCO Therapy Statistic Total Date Time Start 20140110 IDCO Therapy Statistic Total Date Time End 20200821 IDCO Therapy Statistic Total Shocks Delivered 2 IDCO Therapy Statistic Recent Shocks Aborted 0 IDCO Therapy Statistic Total Shocks Aborted 0 IDCO Therapy Statistic Recent ATP Delivered 1 IDCO Therapy Statistic Total ATP Delivered 3 IDCO Anatomical Region Laterality Modality Other 08/21/2020 12:4 2 AM EDT Physician Cardiology IMPLANTABLE CARD IAC DEVICE documented in this encounter Visit Diagnoses Not on filedocumented in this encounter Care Teams Recoil Spring Winder Relationship Specialty Start Date End Date Dewayne Carrington MD [address] [place] [address] PCP - General 09/02/16 documented as of this encounter
--- OUTSIDE RECORDS SUMMARY | 2023-11-03 01:23 | XMS_ITS | Encounter Summary ---
[place] [address] Care Team Providers Care Digital Court Reporter Name Role Phone Dewayne Carrington MD Primary Care Provider [phone] Encounter Details Date Type Department Care Team (Late st Contact Info) Description 09/12/2020 Orders Only Cardiology at [address] [address] Social History Tobacco Use Types Packs/Day Years [...] AM EDT Hospital Encounter [place] [address] Arrived documented as of this encounter Procedures Procedure Name Priority Date/Time Associated Diagnosis Comments CARDIAC DEVICE CHECK - REMOTE DEVICE INITIATED Routine 09/12/2020 12:42 AM EDT documented in this encounter Results * Cardiac device check - Remote Device Initiated (09/12/2020 12:42 AM EDT) Pathologist [facility] Date Time Interrogation Session [id number] IDCO Type Interrogation Session Remote Device Initiated IDCO Clinic Name [facility] Shirin [facility] IDCO Battery Date Time of Measurements [id number] IDCO Battery Status Beginning of Service IDCO Battery Remaining Longevity 42 mo IDCO Battery Remaining Percentage 46 % IDCO Capacitor Last Charge Date Time [id number] IDCO Capacitor Charge Time 11.2 s IDCO Capacitor Charge Type Reformation IDCO Capacitor Last Charge Date Time [id number] IDCO Capacitor Charge Time 3.8 s IDCO Capacitor Charge Energy 21 J IDCO Capacitor Charge Type Shock IDCO Episode Identifier APM-54 IDCO Episode Date Time IDCO Episode Type Category Periodic EGM IDCO Episode Vendor Type Category APMRT IDCO Episode Detection And Therapy Details Presenting EGM IDCO Episode Identifier [id number] IDCO Episode Date Time IDCO Episode Type Category VT IDCO Episode Vendor Type Category NSVT IDCO Episode Type Induced Flag NO IDCO Episode Detection Interval Ventricular 349 ms IDCO Episode Duration 5 s IDCO Episode Detection And Therapy Details NonSustV IDCO Episode Identifier ATR-438 IDCO Episode Date Time IDCO Episode Type Category AT/AF IDCO Episode Vendor Type Category ATR IDCO Episode Detection Interval Atrial 171 ms IDCO Episode Detection And Therapy Details ATR IDCO Episode Identifier ATR-437 IDCO Episode Date Time IDCO Episode Type Category AT/AF IDCO Episode Vendor Type Category ATR IDCO Episode Detection Interval Atrial 167 ms IDCO Episode Duration 2 s IDCO Episode Detection And Therapy Details ATR IDCO Episode Identifier [id number] IDCO Episode Date Time IDCO Episode Type Category VT IDCO Episode Vendor Type Category VT-1 IDCO Episode Type Induced Flag NO IDCO Episode Detection Interval Ventricular 382 ms IDCO Episode Duration 82 s IDCO Episode Detection And Therapy Details VT-1 ATPx6 IDCO Episode Identifier ATR-436 IDCO Episode Date Time IDCO Episode Type Category AT/AF IDCO Episode Vendor Type Category ATR IDCO Episode Detection Interval Atrial 193 ms IDCO Episode Duration 10 s IDCO Episode Detection And Therapy Details ATR IDCO Episode Identifier V-[id number] IDCO Episode Date Time IDCO Episode Type Category VT IDCO Episode Vendor Type Category NSVT IDCO Episode Type Induced Flag NO IDCO Episode Detection Interval Ventricular 335 ms IDCO Episode Duration 31 s IDCO Episode Detection And Therapy Details NonSustV IDCO Episode Identifier V-2182 IDCO Episode Date Time IDCO Episode Type Category VT IDCO Episode Vendor Type Category NSVT IDCO Episode Type Induced Flag NO IDCO Episode Detection Interval Ventricular 387 ms IDCO Episode Duration 4 s IDCO Episode Detection And Therapy Details NonSustV IDCO Episode Identifier V-2181 IDCO Episode Date Time IDCO Episode Type Category VT IDCO Episode Vendor Type Category NSVT IDCO Episode Type Induced Flag NO IDCO Episode Detection Interval Ventricular 382 ms IDCO Episode Duration 5 s IDCO Episode Detection And Therapy Details NonSustV IDCO Episode Identifier V-2180 IDCO Episode Date Time IDCO Episode Type Category VT IDCO Episode Vendor Type Category NSVT IDCO Episode Type Induced Flag NO IDCO Episode Detection Interval Ventricular 382 ms IDCO Episode Duration 4 s IDCO Episode Detection And Therapy Details NonSustV IDCO Episode Identifier -2179 IDCO Episode Date Time IDCO Episode Type Category VT IDCO Episode Vendor Type Category NSVT IDCO Episode Type Induced Flag NO IDCO Episode Detection Interval Ventricular 397 ms IDCO Episode Duration 5 s IDCO Episode Detection And Therapy Details NonSustV IDCO Episode Identifier -2178 IDCO Episode Date Time IDCO Episode Type Category VT IDCO Episode Vendor Type Category NSVT IDCO Episode Type Induced Flag NO IDCO Episode Detection Interval Ventricular 382 ms IDCO Episode Duration 11 s IDCO Episode Detection And Therapy Details NonSustV IDCO Episode Identifier V-[id number] IDCO Episode Date Time IDCO Episode Type Category VT IDCO Episode Vendor Type Category NSVT IDCO Episode Type Induced Flag NO IDCO Episode Detection Interval Ventricular 438 ms IDCO Episode Duration 5 s IDCO Episode Detection And Therapy Details NonSustV IDCO Episode Identifier ATR-435 IDCO Episode Date Time [id number] IDCO Episode Type Category AT/AF IDCO Episode Vendor Type Category ATR IDCO Episode Detection Interval Atrial 169 ms IDCO Episode Duration 1,920,945 s IDCO Episode Detection And Therapy Details ATR IDCO Episode Statistic Type Category VF IDCO Episode Statistic Vendor Type Category VF IDCO Episode Statistic Recent Count 0 IDCO Episode Statistic Recent Date Time Start 20200523 IDCO Episode Statistic Recent Date Time End 20200912 IDCO Episode Statistic Type Category VT IDCO Episode Statistic Vendor Type Category VT IDCO Episode Statistic Recent Count 0 IDCO Episode Statistic Recent Date Time Start 20200523 IDCO Episode Statistic Recent Date Time End 20200912 IDCO Episode Statistic Type Category VT IDCO Episode Statistic Vendor Type Category VT-1 IDCO Episode Statistic Recent Count 2 IDCO Episode Statistic Recent Date Time Start 20200523 IDCO Episode Statistic Recent Date Time End 20200912 IDCO Episode Statistic Type Category Monitor IDCO Episode Statistic Vendor Type Category IDCO Episode Statistic Recent Count 0 IDCO Episode Statistic Recent Date Time Start 20200523 IDCO Episode Statistic Recent Date Time End 20200912 IDCO Episode Statistic Type Category Other IDCO Episode Statistic Vendor Type Category IDCO Episode Statistic Recent Count 0 IDCO Episode Statistic Recent Date Time Start 20200523 IDCO Episode Statistic Recent Date Time End 20200912 IDCO Episode Statistic Type Category VT IDCO Episode Statistic Vendor Type Category NSVT IDCO Episode Statistic Recent Count 9 IDCO Episode Statistic Recent Date Time Start 20200523 IDCO Episode Statistic Recent Date Time End 20200912 IDCO Episode Statistic Type Category AT/AF IDCO Episode Statistic Vendor Type Category ATR IDCO Episode Statistic Recent Count 5 IDCO Episode Statistic Recent Date Time Start 20200523 IDCO Episode Statistic Recent Date Time End 20200912 IDCO Albaro Setting AT Mode Switch Mode [...] E162 IDCO Implantable Pulse Generator Serial Number [id number] IDCO Implantable Pulse Generator Tractor Trailer Technician Fairdealing Scientific IDCO Implantable Pulse Generator Implant Date 20140110 IDCO Implantable Lead Model 4136 IDCO Implantable Lead Serial Number [id number] IDCO Implantable Lead Tractor Trailer Technician Guidant IDCO Implantable Lead Implant Date 20130421 IDCO Implantable Lead Polarity Type Bipolar Lead IDCO Implantable Lead Location Right Atrium IDCO Implantable Lead Model 0292 IDCO Implantable Lead Serial Number [id number] IDCO Implantable Lead Tractor Trailer Technician Fairdealing Scientific IDCO Implantable Lead Implant Date IDCO Implantable Lead Location Right Ventricle IDCO Lead Channel Measurements Date and Time Start 20190921 IDCO Lead Channel Measurements Date and Time End 20200911 IDCO Lead Channel Sensing Intrinsic Amplitude Mean 3.7 mV IDCO Lead Channel Sensing Polarity Bipolar IDCO Lead Channel Pacing Threshold Amplitude 0.7 V IDCO Lead Channel Pacing Threshold Pulse Width 0.5 ms IDCO Lead Channel Pacing Threshold Measurement Method Notching Machine Operator Manual IDCO Lead Channel Pacing Threshold Polarity Bipolar IDCO Lead Channel Impedance Value 827 ohms IDCO Lead Channel Impedance Polarity Bipolar IDCO Lead Channel Measurements Date and Time Start 20200523 IDCO Lead Channel Measurements Date and Time End 20200911 IDCO Lead Channel Sensing Intrinsic Amplitude Mean 21.7 mV IDCO Lead Channel Sensing Polarity Bipolar IDCO Lead Channel Pacing Threshold Amplitude 0.6 V IDCO Lead Channel Pacing Threshold Pulse Width 0.5 ms IDCO Lead Channel Pacing Threshold Measurement Method Notching Machine Operator Manual IDCO Lead Channel Pacing Threshold Polarity Bipolar IDCO Lead Channel Impedance Value 743 ohms IDCO Lead Channel Impedance Polarity Bipolar IDCO Lead High Voltage Channel Date Time 20200911 IDCO Lead High Voltage Channel Impedance 92 ohms IDCO Lead High Voltage Channel Measurement Type Low Voltage Pulse IDCO Statistic Date Time Start 20200523 IDCO Statistic Date Time End 20200912 IDCO Albaro Statistic Date Time Start 20200523 IDCO Albaro Statistic Date Time End 20200912 IDCO Albaro Statistic RA Percent Paced 0 % IDCO Albaro Statistic RV Percent Paced 19 % IDCO Therapy Statistic Recent Date Time Start 20200523 IDCO Therapy Statistic Recent Date Time End 20200912 IDCO Therapy Statistic Recent Shocks Delivered 0 IDCO Therapy Statistic Total Date Time Start 20140110 IDCO Therapy Statistic Total Date Time End 20200912 IDCO Therapy Statistic Total Shocks Delivered 2 IDCO Therapy Statistic Recent Shocks Aborted 0 IDCO Therapy Statistic Total Shocks Aborted 0 IDCO Therapy Statistic Recent ATP Delivered 3 IDCO Therapy Statistic Total ATP Delivered 5 IDCO Anatomical Region Laterality Modality Other 09/12/2020 12:4 2 AM EDT Physician Cardiology IMPLANTABLE CARD IAC DEVICE documented in this encounter Visit Diagnoses Not on filedocumented in this encounter Care Teams Digital Court Reporter Relationship Specialty Start Date End Date Dewayne Carrington MD [address] [place] [address] PCP - General 09/02/16 documented as of this encounter
--- OUTSIDE RECORDS SUMMARY | 2023-11-03 01:23 | XMS_ITS | Encounter Summary ---
Author Organization [facility] Address [facility] [place] [address] Care Team Providers Care Finance Associate Name Role Phone Dewayne Carrington MD Primary Care Provider [phone] Encounter Details Date Type Department Care Team (Latest Contact Info) Description 01/05/2020 10:49 AM EDT - 01/05/2020 11:59 PM EDT Hospital Encounter Non-Invasive Cardiology Lab [facility] [place] [address] Irena Daly MD [facility] [place] [address] Ventricular tachycardia Discharge Disposition: Home Social History [...] AM EDT Hospital Encounter Non-[place] [address] Arrived documented as of this encounter Procedures Procedure Name Priority Date/Time Associated Diagnosis Comments ICD INTERROGATION 3 MONTH Routine 01/05/2020 10:50 AM EDT Ventricular tachycardia documented in this encounter Results * ICD INTERROGATION 3 MONTH (01/05/2020 10:50 AM EDT) Anatomical Region Laterality Modality Other Narrative 01/06/2020 3:03 PM EDT Outpatient remote interrogation report: See full report as a linked pdf document Date of transmission: 01/05/2020 Device claims adjustor: [facility] Device type: DC ICD Presenting rhythm: asvs AP 0% MANUFACTURING MACHINE OPERATOR 4% Battery: 5.5 years Episodes: Many NSVT events. ??Not all of these are reviewed, but those which are reflect rapidly conducted AF. ??For one of these events, ATP was delivered after which AF continued but ventricular rate fell out of the VT zone. ??No true VT events are seen. 8.3% AF since last reset with longest episode lasting > 48 hours Stable lead trends. Activity OK Conclusions: Recommend more aggressive control of AF rate/rhythm to avoid future inappropriate treatment of AF with RVR. Irena Daly MD 01/06/2020 2:55 PM Irena Daly MD IMPLANTABLE CARDIAC DEVICE documented in this encounter Visit Diagnoses Diagnosis Ventricular tachycardia Paroxysmal ventricular tachycardia documented in this encounter Care Teams Finance Associate Relationship Specialty Start Date End Date Dewayne Carrington MD [facility] [place] [address] PCP - General 09/02/16 documented as of this encounter
--- OUTSIDE RECORDS SUMMARY | 2023-11-03 01:23 | XMS_ITS | Encounter Summary ---
[place] [address] Care Team Providers Care Senior Financial Accountant Name Role Phone Dewayne Carrington MD Primary Care Provider [phone] Encounter Details Date Type Department Care Team (Late st Contact Info) Description 02/07/2020 Orders Only Cardiology at [address] [id number] Social History Tobacco Use Types Packs/Day Years [...] AM EDT Hospital Encounter [place] [address] Arrived documented as of this encounter Procedures Procedure Name Priority Date/Time Associated Diagnosis Comments CARDIAC DEVICE CHECK - REMOTE DEVICE INITIATED Routine 02/07/2020 12:41 AM EDT documented in this encounter Results * Cardiac device check - Remote Device Initiated (02/07/2020 12:41 AM EDT) Date Time Interrogation Session [id number] IDCO Type Interrogation Session Remote Device Initiated [facility] Battery Date Time of Measurements [id number] IDCO Battery Status Beginning of Service IDCO Battery Remaining Longevity 54 mo IDCO Battery Remaining Percentage 67 % IDCO Capacitor Last Charge Date Time [id number] IDCO Capacitor Charge Time 11.0 s IDCO Capacitor Charge Type Reformation IDCO Capacitor Last Charge Date Time [id number] IDCO Capacitor Charge Time 3.8 s IDCO Capacitor Charge Energy 21 J IDCO Capacitor Charge Type Shock IDCO Episode Identifier [id number] IDCO Episode Date Time IDCO Episode Type Category Periodic EGM IDCO Episode Vendor Type Category APMRT IDCO Episode Detection And Therapy Details Presenting EGM IDCO Episode Identifier [id number] IDCO Episode Date Time IDCO Episode Type Category AT/AF IDCO Episode Vendor Type Category ATR IDCO Episode Detection Interval Atrial 271 ms IDCO Episode Detection And Therapy Details ATR IDCO Episode Identifier [id number]-428 IDCO Episode Date Time [id number] IDCO Episode Type Category AT/AF IDCO Episode Vendor Type Category ATR IDCO Episode Detection Interval Atrial 279 ms IDCO Episode Duration 73 s IDCO Episode Detection And Therapy Details ATR IDCO Episode Identifier [id number] IDCO Episode Date Time IDCO Episode Type Category Other IDCO Episode Vendor Type Category XANDER IDCO Episode Detection Interval Ventricular 938 ms IDCO Episode Duration 54 s IDCO Episode Detection And Therapy Details IDCO Episode Identifier [id number] IDCO Episode Date Time IDCO Episode Type Category Other IDCO Episode Vendor Type Category XANDER IDCO Episode Detection Interval Ventricular 984 ms IDCO Episode Duration 57 s IDCO Episode Detection And Therapy Details IDCO Episode Identifier [id number] IDCO Episode Date Time IDCO Episode Type Category Other IDCO Episode Vendor Type Category XANDER IDCO Episode Detection Interval Ventricular 1,091 ms IDCO Episode Duration 57 s IDCO Episode Detection And Therapy Details IDCO Episode Identifier [id number] IDCO Episode Date Time [id number] IDCO Episode Type Category Other IDCO Episode Vendor Type Category XANDER IDCO Episode Detection Interval Ventricular 1,000 ms IDCO Episode Duration 58 s IDCO Episode Detection And Therapy Details IDCO Episode Identifier [facility]-[id number] IDCO Episode Date Time [id number] IDCO Episode Type Category Other IDCO Episode Vendor Type Category XADNER IDCO Episode Detection Interval Ventricular 984 ms IDCO Episode Duration 57 s IDCO Episode Detection And Therapy Details [facility] IDCO Episode Identifier [facility]-[id number] IDCO Episode Date Time [id number] IDCO Episode Type Category Other IDCO Episode Vendor Type Category XANDER IDCO Episode Detection Interval Ventricular 1,071 ms IDCO Episode Duration 57 s IDCO Episode Detection And Therapy Details [facility] IDCO Episode Identifier [facility]-[id number] IDCO Episode Date Time [id number] IDCO Episode Type Category Other IDCO Episode Vendor Type Category XANDER IDCO Episode Detection Interval Ventricular 1,017 ms IDCO Episode Duration 54 s IDCO Episode Detection And Therapy Details [facility] IDCO Episode Identifier [facility]-[id number] IDCO Episode Date Time [id number] IDCO Episode Type Category Other IDCO Episode Vendor Type Category XANDRE IDCO Episode Detection Interval Ventricular 952 ms IDCO Episode Duration 56 s IDCO Episode Detection And Therapy Details [facility] IDCO Episode Identifier [facility]-[id number] IDCO Episode Date Time [id number] IDCO Episode Type Category Other IDCO Episode Vendor Type Category XANDER IDCO Episode Detection Interval Ventricular 952 ms IDCO Episode Duration 57 s IDCO Episode Detection And Therapy Details [facility] IDCO Episode Identifier [facility]-[id number] IDCO Episode Date Time [id number] IDCO Episode Type Category Other IDCO Episode Vendor Type Category XANDER IDCO Episode Detection Interval Ventricular 1,091 ms IDCO Episode Duration 57 s IDCO Episode Detection And Therapy Details [facility] IDCO Episode Identifier [id number] IDCO Episode Date Time [id number] IDCO Episode Type Category AT/AF IDCO Episode Vendor Type Category ATR IDCO Episode Detection Interval Atrial 270 ms IDCO Episode Duration 39,081 s IDCO Episode Detection And Therapy Details ATR IDCO Episode Identifier ATR-426 IDCO Episode Date Time [id number] IDCO Episode Type Category AT/AF IDCO Episode Vendor Type Category ATR IDCO Episode Detection Interval Atrial 247 ms IDCO Episode Duration 610 s IDCO Episode Detection And Therapy Details ATR IDCO Episode Identifier ATR-425 IDCO Episode Date Time [id number] IDCO Episode Type Category AT/AF IDCO Episode Vendor Type Category ATR IDCO Episode Detection Interval Atrial 882 ms IDCO Episode Duration 2 s IDCO Episode Detection And Therapy Details ATR IDCO Episode Identifier [id number] IDCO Episode Date Time [id number] IDCO Episode Type Category AT/AF IDCO Episode Vendor Type Category ATR IDCO Episode Detection Interval Atrial 833 ms IDCO Episode Duration 2 s IDCO Episode Detection And Therapy Details ATR IDCO Episode Identifier ATR-423 IDCO Episode Date Time IDCO Episode Type Category AT/AF IDCO Episode Vendor Type Category ATR IDCO Episode Detection Interval Atrial 245 ms IDCO Episode Duration 29,053 s IDCO Episode Detection And Therapy Details ATR IDCO Episode Identifier ATR-422 IDCO Episode Date Time IDCO Episode Type Category AT/AF IDCO Episode Vendor Type Category ATR IDCO Episode Detection Interval Atrial 952 ms IDCO Episode Duration 1 s IDCO Episode Detection And Therapy Details ATR IDCO Episode Identifier ATR-421 IDCO Episode Date Time [id number] IDCO Episode Type Category AT/AF IDCO Episode Vendor Type Category ATR IDCO Episode Detection Interval Atrial 896 ms IDCO Episode Duration 1 s IDCO Episode Detection And Therapy Details ATR IDCO Episode Identifier [id number] IDCO Episode Date Time [id number] IDCO Episode Type Category VT IDCO Episode Vendor Type Category NSVT IDCO Episode Type Induced Flag NO IDCO Episode Detection Interval Ventricular 432 ms IDCO Episode Duration 8 s IDCO Episode Detection And Therapy Details NonSustV IDCO Episode Identifier ATR-420 IDCO Episode Date Time [id number] IDCO Episode Type Category AT/AF IDCO Episode Vendor Type Category ATR IDCO Episode Detection Interval Atrial 234 ms IDCO Episode Duration 17,622 s IDCO Episode Detection And Therapy Details ATR IDCO Episode Identifier ATR-419 IDCO Episode Date Time [id number] IDCO Episode Type Category AT/AF IDCO Episode Vendor Type Category ATR IDCO Episode Detection Interval Atrial 698 ms IDCO Episode Duration 5 s IDCO Episode Detection And Therapy Details ATR IDCO Episode Identifier [id number] IDCO Episode Date Time [id number] IDCO Episode Type Category VT IDCO Episode Vendor Type Category NSVT IDCO Episode Type Induced Flag NO IDCO Episode Detection Interval Ventricular 405 ms IDCO Episode Duration 6 s IDCO Episode Detection And Therapy Details NonSustV IDCO Episode Identifier IDCO Episode Date Time IDCO Episode Type Category VT IDCO Episode Vendor Type Category NSVT IDCO Episode Type Induced Flag NO IDCO Episode Detection Interval Ventricular 400 ms IDCO Episode Duration 14 s IDCO Episode Detection And Therapy Details NonSustV IDCO Episode Identifier IDCO Episode Date Time IDCO Episode Type Category VT IDCO Episode Vendor Type Category NSVT IDCO Episode Type Induced Flag NO IDCO Episode Detection Interval Ventricular 349 ms IDCO Episode Duration 6 s IDCO Episode Detection And Therapy Details NonSustV IDCO Episode Identifier IDCO Episode Date Time IDCO Episode Type Category VT IDCO Episode Vendor Type Category NSVT IDCO Episode Type Induced Flag NO IDCO Episode Detection Interval Ventricular 377 ms IDCO Episode Duration 11 s IDCO Episode Detection And Therapy Details NonSustV IDCO Episode Identifier IDCO Episode Date Time IDCO Episode Type Category VT IDCO Episode Vendor Type Category NSVT IDCO Episode Type Induced Flag NO IDCO Episode Detection Interval Ventricular 380 ms IDCO Episode Duration 6 s IDCO Episode Detection And Therapy Details NonSustV IDCO Episode Identifier IDCO Episode Date Time [id number] IDCO Episode Type Category VT IDCO Episode Vendor Type Category NSVT IDCO Episode Type Induced Flag NO IDCO Episode Detection Interval Ventricular 387 ms IDCO Episode Duration 17 s IDCO [...] IDCO Episode Statistic Recent Date Time End 20200207 IDCO Episode Statistic Type Category VT IDCO Episode Statistic Vendor Type Category VT IDCO Episode Statistic Recent Count 0 IDCO Episode Statistic Recent Date Time Start 20190921 IDCO Episode Statistic Recent Date Time End 20200207 IDCO Episode Statistic Type Category VT IDCO Episode Statistic Vendor Type Category VT-1 IDCO Episode Statistic Recent Count 1 IDCO Episode Statistic Recent Date Time Start 20190921 IDCO Episode Statistic Recent Date Time End 20200207 IDCO Episode Statistic Type Category Monitor IDCO Episode Statistic Vendor Type Category IDCO Episode Statistic Recent Count 0 IDCO Episode Statistic Recent Date Time Start 20190921 IDCO Episode Statistic Recent Date Time End 20200207 IDCO Episode Statistic Type Category Other IDCO Episode Statistic Vendor Type Category IDCO Episode Statistic Recent Count 8 IDCO Episode Statistic Recent Date Time Start 20190921 IDCO Episode Statistic Recent Date Time End 20200207 IDCO Episode Statistic Type Category VT IDCO Episode Statistic Vendor Type Category NSVT IDCO Episode Statistic Recent Count 200 IDCO Episode Statistic Recent Date Time Start 20190921 IDCO Episode Statistic Recent Date Time End 20200207 IDCO Episode Statistic Type Category AT/AF IDCO Episode Statistic Vendor Type Category ATR IDCO Episode Statistic Recent Count 140 IDCO Episode Statistic Recent Date Time Start 20190921 IDCO Episode Statistic Recent Date Time End 20200207 IDCO Albaro Setting AT Mode Switch Mode [...] E162 IDCO Implantable Pulse Generator Serial Number [id number] IDCO Implantable Pulse Generator Pottery Machine Operator [place] IDCO Implantable Pulse Generator Implant Date 20140110 IDCO Implantable Lead Model 4136 IDCO Implantable Lead Serial Number [id number] IDCO Implantable Lead Pottery Machine Operator Guidant IDCO Implantable Lead Implant Date 20130421 IDCO Implantable Lead Polarity Type Bipolar Lead IDCO Implantable Lead Location Right Atrium IDCO Implantable Lead Model 0292 IDCO Implantable Lead Serial Number [id number] IDCO Implantable Lead Pottery Machine Operator [place] IDCO Implantable Lead Implant Date IDCO Implantable Lead Location Right Ventricle IDCO Lead Channel Measurements Date and Time Start 20190921 IDCO Lead Channel Measurements Date and Time End 20200205 IDCO Lead Channel Sensing Intrinsic Amplitude Mean 6.2 mV IDCO Lead Channel Sensing Polarity Bipolar IDCO Lead Channel Pacing Threshold Amplitude 0.7 V IDCO Lead Channel Pacing Threshold Pulse Width 0.5 ms IDCO Lead Channel Pacing Threshold Measurement Method Route Driver Manual IDCO Lead Channel Pacing Threshold Polarity Bipolar IDCO Lead Channel Impedance Value 778 ohms IDCO Lead Channel Impedance Polarity Bipolar IDCO Lead Channel Measurements Date and Time Start 20190921 IDCO Lead Channel Measurements Date and Time End 20200205 IDCO Lead Channel Sensing Intrinsic Amplitude Mean 12.5 mV IDCO Lead Channel Sensing Polarity Bipolar IDCO Lead Channel Pacing Threshold Amplitude 0.6 V IDCO Lead Channel Pacing Threshold Pulse Width 0.5 ms IDCO Lead Channel Pacing Threshold Measurement Method Route Driver Manual IDCO Lead Channel Pacing Threshold Polarity Bipolar IDCO Lead Channel Impedance Value 678 ohms IDCO Lead Channel Impedance Polarity Bipolar IDCO Lead High Voltage Channel Date Time 20200205 IDCO Lead High Voltage Channel Impedance 89 ohms IDCO Lead High Voltage Channel Measurement Type Low Voltage Pulse IDCO Statistic Date Time Start 20190921 IDCO Statistic Date Time End 20200207 IDCO Albaro Statistic Date Time Start 20190921 IDCO Albaro Statistic Date Time End 20200207 IDCO Albaro Statistic RA Percent Paced 1 % IDCO Albaro Statistic RV Percent Paced 4 % IDCO Therapy Statistic Recent Date Time Start 20190921 IDCO Therapy Statistic Recent Date Time End 20200207 IDCO Therapy Statistic Recent Shocks Delivered 0 IDCO Therapy Statistic Total Date Time Start 20140110 IDCO Therapy Statistic Total Date Time End 20200207 IDCO Therapy Statistic Total Shocks Delivered 2 IDCO Therapy Statistic Recent Shocks Aborted 0 IDCO Therapy Statistic Total Shocks Aborted 0 IDCO Therapy Statistic Recent ATP Delivered 1 IDCO Therapy Statistic Total ATP Delivered 2 IDCO Anatomical Region Laterality Modality Other 02/07/2020 12:4 1 AM EDT Physician Cardiology IMPLANTABLE CARD IAC DEVICE documented in this encounter Visit Diagnoses Not on filedocumented in this encounter Care Teams Senior Financial Accountant Relationship Specialty Start Date End Date Dewayne Carrington MD [facility] [place] [address] PCP - General 09/02/16 documented as of this encounter
--- OUTSIDE RECORDS SUMMARY | 2023-11-03 01:24 | XMS_ITS | Encounter Summary ---
Author Organization [facility] Address [facility] [place] [address] Care Team Providers Care Paving Rammer Name Role Phone Dewayne Carrington MD Primary Care Provider [phone] Reason for Visit * Reason Comments Rash Encounter Details Date Type Department Care Team (Late st Contact Info) Description 11/15/2019 6:00 PM EDT Office Visit Dermatology at [facility] [address] [place] [address] Irena Miranda MD [facility] [address] [place] [address] Lichen simplex chronicus Social History Tobacco Use Types Packs/Day Years [...] on file documented as of this encounter Patient Instructions * Patient Instructions* Magda Bajwa - 11/15/2019 6:00 PM EDT - Start Rx: Protopic 0.1% ointment twice daily - Recommend zinc oxide barrier cream during the day - Discontinue baby wipes, okay to use cotton pad with mineral oil or Waterwipes documented in this encounter Progress Notes * Irena Miranda MD - 11/15/2019 6:00 PM EDTSummary: rash DERMATOLOGY OUTPATIENT CLINIC NOTE Date of service: 11/15/2019 Marquez Hendrix : 1950 Provider: Irena Miranda MD PROBLEM: rash SKIN HISTORY: none HPI Marquez Hendrix is a 69 y.o.male. New pt here for a rash on the buttock and the problem area is the coccyx or tail bone that has been present for two years. He saw the wound center on 02/2019 and they called it a pressure ulcer and was told to come here. He was using diabetic gold kumar lotion. HisGP given him triamcinolone cream that did not help. He feel the gold kumar lotion was what cleared the area up. He has tried a zinc oxide barrier cream for 1 week, which did not help. It is not itchy.He hasn't treated in the past few days. Has tried a donut cushion in the past, but makes everythingelse sore. Today is an above average day for his rash. Does sometimes have bowel constipation and diarrhea. Recently started using baby wipes. [id number] [facility] Social History: Retired Twice a Family History: Sister - unknown ADR: Allergies Allergen Reactions ??? Latex ??? Tape 1X5yd [Adhesive Tape] Rash tegaderm ok Use paper tape CURRENT MEDICATIONS: Current Outpatient Medications Medication Sig Dispense Refill ??? BD ULTRA-FINE MINI PEN NEEDLE 31 gauge x 3/16 Needle INJECT ONCE DAILY DIRECTED 0 ??? vortioxetine (BRINTELLIX) 10 mg Tablet Take 15 mg by mouth daily (after breakfast). ??? metoprolol succinate (TOPROL-XL) 100 mg Tablet Sustained Release 24 hr Take 100 mg by mouth daily. ??? metoprolol succinate (TOPROL-XL) 25 mg Tablet Sustained Release 24 hr Take 25 mg by mouth daily. ??? FREESTYLE LITE STRIPS TEST THREE TIMES DAILY 0 ??? CHOLECALCIFEROL, VITAMIN D3, 2,000 unit Capsule take 1 capsule by mouth daily 0 ??? lamoTRIgine (LAMICTAL) 200 mg Tablet daily. 0 ??? aspirin 81 mg Tablet, Delayed Release (E.C.) Take 81 mg by mouth daily. ??? rivaroxaban (XARELTO) 20 mg Tablet Take 1 tablet by mouth daily. 30 tablet 11 ??? glipiZIDE (GLUCOTROL) 5 mg Tablet Take 5 mg by mouth daily. ??? MAGNESIUM CARBONATE ORAL Take 400 mg by mouth 2 times daily. ??? pantoprazole (PROTONIX) 40 mg Tablet, Delayed Release (E.C.) Take 40 mg by mouth daily. ??? liraglutide (VICTOZA) 0.6 mg/0.1 mL (18 mg/3 mL) Pen Injector Inject 1.2 mg subcutaneously daily. ??? atorvastatin (LIPITOR) 80 mg Tablet Take 80 mg by mouth daily. ??? CALCIUM CARBONATE/VITAMIN D3 (VITAMIN D-3 ORAL) Take 1 capsule by mouth daily. ??? traMADol (ULTRAM) 50 mg Tablet Take 50 mg by mouth daily as needed for Pain. ??? lisinopril (PRINIVIL;ZESTRIL) 20 mg Tablet Take 1 tablet by mouth daily. (Patient taking differently: Take 10 mg by mouth daily.) 30 tablet 12 ??? zolpidem (AMBIEN) 10 mg tablet Take 10 mg by mouth nightly as needed. ??? multivitamin capsule Take 1 capsule by mouth daily. ??? LANCETS MISC by Misc.(Non-Drug; Combo Route) route. ??? alprazolam (XANAX XR) 3 mg 24 hr tablet Take 3 mg by mouth nightly. ??? metformin (GLUCOPHAGE) 1,000 mg tablet Take 1,000 mg by mouth 2 times daily (with meals). ??? nitroGLYcerin (NITROSTAT) 0.[address] 0.4 mg under the tongue every 5 minutes as needed. Reported on 09/30/2016 No current facility-administered medications for this visit. PROBLEM LIST: Patient Active Problem List Diagnosis Code ??? [...] ??? Rib pain on right side R07.81 ROS General: feeling well. Oriented X 3. Skin: denies other skin complaints EXAM General: NAD, pleasant, cooperative Skin: Focused skin examination of the buttocks and was normal with the exception of the findings listed below. Significant skin findings: - bilateral gluteal cleft: slight pink, lichenified plaques ASSESSMENT/PLAN Lichen Simplex Chronicus - findings were somewhat subtle on exam today. There were no ulcerations or erosions as the patientwas describing. I do favor that this is more of a chronic LSC rather than any sort of primary pressure ulcer. We discussed using non steroid cream as well as stopping any wipes with preservatives as this can be a source of irritation or even ACD. Zinc oxide barrier can be very helpful at decreasing irritation to the skin. - Start Rx: Protopic 0.1% ointment twice daily - Recommend zinc oxide barrier cream during the day - D/c baby wipes, okay to use cotton pad with mineral oil or Waterwipes RTC - 3 months follow up LSC Note initiated and routed to physician for review and change by: EILEEN MCDANIEL LPN I, Magda Bajwa, have performed the documentation for this encounter in the presence of and acting as a scribe for Irena Miranda MD. I, Dr. Irena Miranda, performed the visit service though my nurse assisted me in scribing the note. I reviewed and edited this note above, a scribed service performed by my nurse. On closure of this note I agree with the accuracy of the documentation. Irena Miranda MD Section of Dermatology [facility] documented in this encounter Plan of Treatment Upcoming Encounters Date Type Department Care Team (Late st Contact Info) Description 12/18/2023 10:00 AM EDT Hospital Encounter [place] [address] Arrived documented as of this encounter Visit Diagnoses Diagnosis Lichen simplex chronicus Lichenification and lichen simplex chronicus documented in this encounter Care Teams Paving Rammer Relationship Specialty Start Date End Date Dewayne Carrington MD [address] [place] [address] [place] [address] PCP - General 09/02/16 documented as of this encounter
--- OUTSIDE RECORDS SUMMARY | 2023-11-03 01:24 | XMS_ITS | Encounter Summary ---
Author Organization [facility] Address [facility] [place] [address] Care Team Providers Care Candles Pourer Name Role Phone Dewayne Carrington MD Primary Care Provider [phone] Encounter Details Date Type Department Care Team (Late Contact Info) Description 07/21/2019 Telephone Dermatology at [facility] [address] [place] [address] Sanjay Early Social History Tobacco Use Types Packs/Day Years [...] encounter Miscellaneous Notes * Telephone Encounter - Sanjay Early - 07/21/2019 11:34 AM EDT Left a voicemail requesting patient to call clinic to reschedule appt on 08/08/19. Letter was sent informing patient that appt has been cancelled and requesting patient to call clinic to reschedule appt. At this time, Dr. Miranda recommends switching appt to TeleHealth visit. documented in this encounter Plan of Treatment Upcoming Encounters Date Type Department Care Team (Late Contact Info) Description 12/18/2023 10:00 AM EDT Hospital Encounter Non[place] [address] Arrived documented as of this encounter Visit Diagnoses Not on filedocumented in this encounter Care Teams Candles Pourer Relationship Specialty Start Date End Date Dewayne Carrington MD [address] [place] [address] PCP - General 09/02/16 documented as of this encounter
--- OUTSIDE RECORDS SUMMARY | 2023-11-03 01:24 | XMS_ITS | Encounter Summary ---
[place] [address] Care Team Providers Care Mid Level Provider Name Role Phone Dewayne Carrington MD Primary Care Provider Encounter Details Date Type Department Care Team (Late st Contact Info) Description 10/26/2019 Orders Only Cardiology at [address] [address] Social History Tobacco Use Types Packs/Day Years [...] AM EDT Hospital Encounter [place] [address] Arrived documented as of this encounter Procedures Procedure Name Priority Date/Time Associated Diagnosis Comments CARDIAC DEVICE CHECK - REMOTE DEVICE INITIATED Routine 10/26/2019 12:42 AM EDT documented in this encounter Results * Cardiac device check - Remote Device Initiated (10/26/2019 12:42 AM EDT) Date Time Interrogation Session [id number] IDCO Type Interrogation Session Remote Device Initiated [facility] IDCO Battery Date Time of Measurements [id number] IDCO Battery Status Beginning of Service IDCO Battery Remaining Longevity 66 mo IDCO Battery Remaining Percentage 77 % IDCO Capacitor Last Charge Date Time [id number] IDCO Capacitor Charge Time 11.0 s IDCO Capacitor Charge Type Reformation IDCO Capacitor Last Charge Date Time [id number] IDCO Capacitor Charge Time 3.8 s IDCO Capacitor Charge Energy 21 J IDCO Capacitor Charge Type Shock IDCO Episode Identifier APM-42 IDCO Episode Date Time IDCO Episode Type Category Periodic EGM IDCO Episode Vendor Type Category APMRT IDCO Episode Detection And Therapy Details Presenting EGM IDCO Episode Identifier IDCO Episode Date Time IDCO Episode Type Category VT IDCO Episode Vendor Type Category NSVT IDCO Episode Type Induced Flag NO IDCO Episode Detection Interval Ventricular 390 ms IDCO Episode Duration 4 s IDCO Episode Detection And Therapy Details NonSustV IDCO Episode Identifier IDCO Episode Date Time IDCO Episode Type Category VT IDCO Episode Vendor Type Category NSVT IDCO Episode Type Induced Flag NO IDCO Episode Detection Interval Ventricular 408 ms IDCO Episode Duration 118 s IDCO Episode Detection And Therapy Details NonSustV IDCO Episode Identifier ATR-402 IDCO Episode Date Time IDCO Episode Type Category AT/AF IDCO Episode Vendor Type Category ATR IDCO Episode Detection Interval Atrial 223 ms IDCO Episode Detection And Therapy Details ATR IDCO Episode Identifier IDCO Episode Date Time IDCO Episode Type Category VT IDCO Episode Vendor Type Category NSVT IDCO Episode Type Induced Flag NO IDCO Episode Detection Interval Ventricular 387 ms IDCO Episode Duration 115 s IDCO Episode Detection And Therapy Details NonSustV IDCO Episode Identifier ATR-401 IDCO Episode Date Time IDCO Episode Type Category AT/AF IDCO Episode Vendor Type Category ATR IDCO Episode Detection Interval Atrial 215 ms IDCO Episode Duration 116 s IDCO Episode Detection And Therapy Details ATR IDCO Episode Identifier IDCO Episode Date Time IDCO Episode Type Category VT IDCO Episode Vendor Type Category NSVT IDCO Episode Type Induced Flag NO IDCO Episode Detection Interval Ventricular 357 ms IDCO Episode Duration 39 s IDCO Episode Detection And Therapy Details NonSustV IDCO Episode Identifier ATR-400 IDCO Episode Date Time IDCO Episode Type Category AT/AF IDCO Episode Vendor Type Category ATR IDCO Episode Detection Interval Atrial 222 ms IDCO Episode Duration 35 s IDCO Episode Detection And Therapy Details ATR IDCO Episode Identifier IDCO Episode Date Time IDCO Episode Type Category VT IDCO Episode Vendor Type Category NSVT IDCO Episode Type Induced Flag NO IDCO Episode Detection Interval Ventricular 380 ms IDCO Episode Duration 77 s IDCO Episode Detection And Therapy Details [...] And Therapy Details NonSustV IDCO Episode Identifier ATR-399 IDCO Episode Date Time IDCO Episode Type Category AT/AF IDCO Episode Vendor Type Category ATR IDCO Episode Detection Interval Atrial 230 ms IDCO Episode Duration 458 s IDCO Episode Detection And Therapy Details ATR IDCO Episode Identifier IDCO Episode Date Time IDCO Episode Type Category VT IDCO Episode Vendor Type Category NSVT IDCO Episode Type Induced Flag NO IDCO Episode Detection Interval Ventricular 364 ms IDCO Episode Duration 21 s IDCO Episode Detection And Therapy Details NonSustV IDCO Episode Identifier IDCO Episode Date Time IDCO Episode Type Category VT IDCO Episode Vendor Type Category NSVT IDCO Episode Type Induced Flag NO IDCO Episode Detection Interval Ventricular 377 ms IDCO Episode Duration 31 s IDCO Episode Detection And Therapy Details NonSustV IDCO Episode Identifier ATR-398 IDCO Episode Date Time IDCO Episode Type Category AT/AF IDCO Episode Vendor Type Category ATR IDCO Episode Detection Interval Atrial 214 ms IDCO Episode Duration 65 s IDCO Episode Detection And Therapy Details ATR IDCO Episode Identifier IDCO Episode Date Time IDCO Episode Type Category VT IDCO Episode Vendor Type Category NSVT IDCO Episode Type Induced Flag NO IDCO Episode Detection Interval Ventricular 387 ms IDCO Episode Duration 20 s IDCO Episode Detection And Therapy Details NonSustV IDCO Episode Identifier ATR-397 IDCO Episode Date Time IDCO Episode Type Category AT/AF IDCO Episode Vendor Type Category ATR IDCO Episode Detection Interval Atrial 223 ms IDCO Episode Duration 23 s IDCO Episode Detection And Therapy Details ATR IDCO Episode Identifier ATR-396 IDCO Episode Date Time IDCO Episode Type Category AT/AF IDCO Episode Vendor Type Category ATR IDCO Episode Detection Interval Atrial 250 ms IDCO Episode Duration 733 s IDCO Episode Detection And Therapy Details ATR IDCO Episode Identifier ATR-395 IDCO Episode Date Time IDCO Episode Type Category AT/AF IDCO Episode Vendor Type Category ATR IDCO Episode Detection Interval Atrial 235 ms IDCO Episode Duration 2 s IDCO Episode Detection And Therapy Details ATR IDCO Episode Identifier ATR-394 IDCO Episode Date Time IDCO Episode Type Category AT/AF IDCO Episode Vendor Type Category ATR IDCO Episode Detection Interval Atrial 242 ms IDCO Episode Duration IDCO Episode Detection And Therapy Details ATR IDCO Episode Identifier ATR-393 IDCO Episode Date Time IDCO Episode Type Category AT/AF IDCO Episode Vendor Type Category ATR IDCO Episode Detection Interval Atrial 237 ms IDCO Episode Duration IDCO Episode Detection And Therapy Details ATR IDCO Episode Identifier ATR-392 IDCO Episode Date Time IDCO Episode Type Category AT/AF IDCO Episode Vendor Type Category ATR IDCO Episode Detection Interval Atrial 239 ms IDCO Episode Duration IDCO Episode Detection And Therapy Details ATR IDCO Episode Identifier IDCO Episode Date Time IDCO Episode Type Category VT IDCO Episode Vendor Type Category VT-1 IDCO Episode Type Induced Flag NO IDCO Episode Detection Interval Ventricular 373 ms IDCO Episode Duration 183 s IDCO Episode Detection And Therapy Details VT-1 No Therapy IDCO Episode Identifier IDCO Episode Date Time IDCO Episode Type Category VT IDCO Episode Vendor Type Category VT-1 IDCO Episode Type Induced Flag NO IDCO Episode Detection Interval Ventricular 366 ms IDCO Episode Duration 80 s IDCO Episode Detection And Therapy Details VT-1 No Therapy IDCO Episode Identifier IDCO Episode Date Time [id number] IDCO Episode Type Category VT IDCO Episode Vendor Type Category VT-1 IDCO Episode Type Induced Flag NO IDCO Episode Detection Interval Ventricular 357 ms IDCO Episode Duration 59 s IDCO Episode Detection And Therapy Details VT-1 No Therapy IDCO Episode Identifier IDCO Episode Date Time [id number] IDCO Episode Type Category VT IDCO Episode Vendor Type Category VT-1 IDCO Episode Type Induced Flag NO IDCO Episode Detection Interval Ventricular 357 ms IDCO Episode Duration 111 s IDCO Episode Detection And Therapy Details VT-1 No Therapy IDCO Episode Identifier IDCO Episode Date Time IDCO Episode Type Category VT IDCO Episode Vendor Type Category VT-1 IDCO Episode Type Induced Flag NO IDCO Episode Detection Interval Ventricular 370 ms IDCO Episode Duration 104 s IDCO Episode Detection And Therapy Details VT-1 No Therapy IDCO Episode Identifier IDCO Episode Date Time [id number] IDCO Episode Type Category VT IDCO Episode Vendor Type Category VT-1 IDCO Episode Type Induced Flag NO IDCO Episode Detection Interval Ventricular 380 ms IDCO Episode Duration 185 s IDCO Episode Detection And Therapy Details VT-1 No Therapy IDCO Episode Identifier IDCO Episode Date Time [id number] IDCO Episode Type Category VT IDCO Episode Vendor Type Category VT-1 IDCO Episode Type Induced Flag NO IDCO Episode Detection Interval Ventricular 375 ms IDCO Episode Duration 137 s IDCO Episode Detection And Therapy Details VT-1 No Therapy IDCO Episode Identifier IDCO Episode Date Time [id number] IDCO Episode Type Category VT IDCO Episode Vendor Type Category VT-1 IDCO Episode Type Induced Flag NO IDCO Episode Detection Interval Ventricular 353 ms IDCO Episode Duration 39 s IDCO Episode Detection And Therapy Details VT-1 ATPx1 IDCO Episode Identifier IDCO Episode Date Time [id number] IDCO Episode Type Category VT IDCO Episode Vendor Type Category VT-1 IDCO Episode Type Induced Flag NO IDCO Episode Detection Interval Ventricular 364 ms IDCO Episode Duration 82 s IDCO Episode Detection And Therapy Details VT-1 No Therapy IDCO Episode Identifier [id number] IDCO Episode Date Time [id number] IDCO Episode Type Category Other IDCO Episode Vendor Type Category XANDER IDCO Episode Detection Interval Ventricular 1,017 ms IDCO Episode Duration 53 s IDCO Episode Detection And Therapy Details IDCO Episode Identifier 80 IDCO Episode Date Time IDCO Episode Type Category Other IDCO Episode Vendor Type Category XANDER IDCO Episode Detection Interval Ventricular 938 ms IDCO Episode Duration 54 s IDCO Episode Detection And Therapy Details IDCO Episode Identifier 79 IDCO Episode Date Time IDCO Episode Type Category Other IDCO Episode Vendor Type Category XANDER IDCO Episode Detection Interval Ventricular 938 ms IDCO Episode Duration 56 s IDCO Episode Detection And Therapy Details IDCO Episode Identifier 78 IDCO Episode Date Time IDCO Episode Type Category Other IDCO Episode Vendor Type Category XANDER IDCO Episode Detection Interval Ventricular 952 ms IDCO Episode Duration 54 s IDCO Episode Detection And Therapy Details IDCO Episode Identifier 77 IDCO Episode Date Time IDCO Episode Type Category Other IDCO Episode Vendor Type Category XANDER IDCO Episode Detection Interval Ventricular 909 ms IDCO Episode Duration 53 s IDCO Episode Detection And Therapy Details IDCO Episode Identifier 76 IDCO Episode Date Time IDCO Episode Type Category Other IDCO Episode Vendor Type Category XANDER IDCO Episode Detection Interval Ventricular 1,091 ms IDCO Episode Duration 60 s IDCO Episode Detection And Therapy Details IDCO Episode Identifier 75 IDCO Episode Date Time IDCO Episode Type Category Other IDCO Episode Vendor Type Category XANDER IDCO Episode Detection Interval Ventricular 1,034 ms IDCO Episode Duration 55 s IDCO Episode Detection And Therapy Details IDCO Episode Identifier 74 IDCO Episode Date Time IDCO Episode Type Category Other IDCO Episode Vendor Type Category XANDER IDCO Episode Detection Interval Ventricular 952 ms IDCO Episode Duration 55 s IDCO Episode Detection And Therapy Details IDCO Episode Identifier 73 IDCO Episode Date Time IDCO Episode Type Category Other IDCO Episode Vendor Type Category XANDER IDCO Episode Detection Interval Ventricular 952 ms IDCO Episode Duration 55 s IDCO Episode Detection And Therapy Details IDCO Episode Identifier [id number] IDCO Episode Date Time IDCO Episode Type Category Other IDCO Episode Vendor Type Category XANDER IDCO Episode Detection Interval Ventricular 1,034 ms IDCO Episode Duration 53 s IDCO Episode Detection And Therapy Details IDCO Episode Statistic Type Category VF IDCO Episode Statistic Vendor Type Category VF IDCO Episode Statistic Recent Count 0 IDCO Episode Statistic Recent Date Time Start 20190921 IDCO Episode Statistic Recent Date Time End 20191026 IDCO Episode Statistic Type Category VT IDCO Episode Statistic Vendor Type Category VT IDCO Episode Statistic Recent Count 0 IDCO Episode Statistic Recent Date Time Start 20190921 IDCO Episode Statistic Recent Date Time End 20191026 IDCO Episode Statistic Type Category VT IDCO Episode Statistic Vendor Type Category VT-1 IDCO Episode Statistic Recent Count 1 IDCO Episode Statistic Recent Date Time Start 20190921 IDCO Episode Statistic Recent Date Time End 20191026 IDCO Episode Statistic Type Category Monitor IDCO Episode Statistic Vendor Type Category IDCO Episode Statistic Recent Count 0 IDCO Episode Statistic Recent Date Time Start 20190921 IDCO Episode Statistic Recent Date Time End 20191026 IDCO Episode Statistic Type Category Other IDCO Episode Statistic Vendor Type Category IDCO Episode Statistic Recent Count 8 IDCO Episode Statistic Recent Date Time Start 20190921 IDCO Episode Statistic Recent Date Time End 20191026 IDCO Episode Statistic Type Category VT IDCO Episode Statistic Vendor Type Category NSVT IDCO Episode Statistic Recent Count 88 IDCO Episode Statistic Recent Date Time Start 20190921 IDCO Episode Statistic Recent Date Time End 20191026 IDCO Episode Statistic Type Category AT/AF IDCO Episode Statistic Vendor Type Category ATR IDCO Episode Statistic Recent Count 113 IDCO Episode Statistic Recent Date Time Start 20190921 IDCO Episode Statistic Recent Date Time End 20191026 IDCO Albaro Setting AT Mode Switch Mode [...] E162 IDCO Implantable Pulse Generator Serial Number [id number] IDCO Implantable Pulse Generator Manager Freelance Clemson [employer] IDCO Implantable Pulse Generator Implant Date 20140110 IDCO Implantable Lead Model 4136 IDCO Implantable Lead Serial Number [id number] IDCO Implantable Lead Manager Freelance Guiddelio IDCO Implantable Lead Implant Date 20130421 IDCO Implantable Lead Polarity Type Bipolar Lead IDCO Implantable Lead Location Right Atrium IDCO Implantable Lead Model 0292 IDCO Implantable Lead Serial Number [id number] IDCO Implantable Lead Manager Freelance Cle[employer]on [employer] IDCO Implantable Lead Implant Date IDCO Implantable Lead Location Right Ventricle IDCO Lead Channel Measurements Date and Time Start 20190921 IDCO Lead Channel Measurements Date and Time End 20191025 IDCO Lead Channel Sensing Intrinsic Amplitude Mean 3.0 mV IDCO Lead Channel Sensing Polarity Bipolar IDCO Lead Channel Pacing Threshold Amplitude 0.7 V IDCO Lead Channel Pacing Threshold Pulse Width 0.5 ms IDCO Lead Channel Pacing Threshold Measurement Method Chief Unit Forester Manual IDCO Lead Channel Pacing Threshold Polarity Bipolar IDCO Lead Channel Impedance Value 707 ohms IDCO Lead Channel Impedance Polarity Bipolar IDCO Lead Channel Measurements Date and Time Start 20190921 IDCO Lead Channel Measurements Date and Time End 20191025 IDCO Lead Channel Sensing Intrinsic Amplitude Mean 12.3 mV IDCO Lead Channel Sensing Polarity Bipolar IDCO Lead Channel Pacing Threshold Amplitude 0.6 V IDCO Lead Channel Pacing Threshold Pulse Width 0.5 ms IDCO Lead Channel Pacing Threshold Measurement Method Chief Unit Forester Manual IDCO Lead Channel Pacing Threshold Polarity Bipolar IDCO Lead Channel Impedance Value 622 ohms IDCO Lead Channel Impedance Polarity Bipolar IDCO Lead High Voltage Channel Date Time 20191025 IDCO Lead High Voltage Channel Impedance 84 ohms IDCO Lead High Voltage Channel Measurement Type Low Voltage Pulse IDCO Statistic Date Time Start 20190921 IDCO Statistic Date Time End 20191026 IDCO Albaro Statistic Date Time Start 20190921 IDCO Albaro Statistic Date Time End 20191026 IDCO Albaro Statistic RA Percent Paced 0 % IDCO Albaro Statistic RV Percent Paced 3 % IDCO Therapy Statistic Recent Date Time Start 20190921 IDCO Therapy Statistic Recent Date Time End 20191026 IDCO Therapy Statistic Recent Shocks Delivered 0 IDCO Therapy Statistic Total Date Time Start 20140110 IDCO Therapy Statistic Total Date Time End 20191026 IDCO Therapy Statistic Total Shocks Delivered 2 IDCO Therapy Statistic Recent Shocks Aborted 0 IDCO Therapy Statistic Total Shocks Aborted 0 IDCO Therapy Statistic Recent ATP Delivered 1 IDCO Therapy Statistic Total ATP Delivered 2 IDCO Anatomical Region Laterality Modality Other 10/26/2019 12:4 2 AM EDT Physician Cardiology IMPLANTABLE CARD IAC DEVICE documented in this encounter Visit Diagnoses Not on filedocumented in this encounter Care Teams Mid Level Provider Relationship Specialty Start Date End Date Dewayne Carrington MD [address] [place] [address] PCP - General 09/02/16 documented as of this encounter
--- OUTSIDE RECORDS SUMMARY | 2023-11-03 01:24 | XMS_ITS | Encounter Summary ---
Author Organization [facility] [place] [address] Care Team Providers Care Leadlighter Name Role Phone Dewayne Carrington MD Primary Care Provider [phone] Encounter Details Date Type Department Care Team ([facility] st Contact Info) Description 07/14/2019 Telephone Cardiology at [address] [address] Nicole Cancino, RN Social History Tobacco Use Types Packs/Day [...] encounter Miscellaneous Notes * Telephone Encounter - Nicole Cancino, RN - 07/14/2019 2:38 PM EDT Patient called call back on my message to discuss the follow up appointment with Dr. Negron scheduled on July 26. Due to public health concerns, we at are changing how we do business. I would liketo discuss options of a telephonic appointment visit with you. Marquez is perplexed and believes he is all set with an EP and electrical prospecting operator at [facility]. Look back into the referral - it was made in April. The soonest appointment Dr. Negron had open was July 26. The patient has already had a cardioversion and at last remote device check was not in atrial fibrillation. This new patient referral is no longer necessary. Plan: cancel this appointment. documented in this encounter Plan of Treatment Upcoming Encounters Date Type Department Care Team (Late st Contact Info) Description 12/18/2023 10:00 AM EDT Hospital Encounter [place] [address] Arrived documented as of this encounter Visit Diagnoses Not on filedocumented in this encounter Care Teams Leadlighter Relationship Specialty Start Date End Date Dewayne Carrington MD [address] [place] [address] PCP - General 09/02/16 documented as of this encounter
--- OUTSIDE RECORDS SUMMARY | 2023-11-03 01:24 | XMS_ITS | Encounter Summary ---
Author Organization [facility] [place] [address] Care Team Providers Care Ssis Developer Name Role Phone Dewayne Carrington MD Primary Care Provider [phone] Encounter Details Date Type Department Care Team (Late st Contact Info) Description 10/26/2019 Telephone Cardiology at [address] [phone] Chante Robertson RN Social History Tobacco Use Types Packs/Day [...] encounter Miscellaneous Notes * Telephone Encounter - Chante Robertson RN - 10/26/2019 8:36 AM EDT Calls are not being accepted at this number. Call regarding Afib with RVR yesterday ATP was delivered to attempt to convert VT- (AF-RVR) He had high ventricular rates in 170's frm [id number] alerted on his remote The real time EGM showed AF with V-paces and V rates in the 90's documented in this encounter Plan of Treatment Upcoming Encounters Date Type Department Care Team (Late st Contact Info) Description 12/18/2023 10:00 AM EDT Hospital Encounter Non-Invasive [place] [phone] Arrived documented as of this encounter Visit Diagnoses Not on filedocumented in this encounter Care Teams Ssis Developer Relationship Specialty Start Date End Date Dewayne Carrington MD [address] [place] [address] PCP - General 09/02/16 documented as of this encounter
--- OUTSIDE RECORDS SUMMARY | 2023-11-03 01:24 | XMS_ITS | Encounter Summary ---
[place] [address] Care Team Providers Care Tank Truck Mechanic Name Role Phone Dewayne Carrington MD Primary Care Provider [phone] Encounter Details Date Type Department Care Team (Late st Contact Info) Description 01/05/2020 Orders Only Cardiology at [address] [phone] Social History Tobacco Use Types Packs/Day Years [...] AM EDT Hospital Encounter [place] [address] Arrived documented as of this encounter Procedures Procedure Name Priority Date/Time Associated Diagnosis Comments CARDIAC DEVICE CHECK - REMOTE SCHEDULED Routine 01/05/2020 12:41 AM EDT documented in this encounter Results * Cardiac device check - Remote Scheduled (01/05/2020 12:41 AM EDT) Date Time Interrogation Session [id number] IDCO Type Interrogation Session Remote Scheduled IDCO Clinic Name [facility] IDCO Battery Date Time of Measurements [id number] IDCO Battery Status Beginning of Service IDCO Battery Remaining Longevity 66 mo IDCO Battery Remaining Percentage 77 % IDCO Capacitor Last Charge Date Time IDCO Capacitor Charge Time 11.0 s IDCO Capacitor Charge Type Reformation IDCO Capacitor Last Charge Date Time IDCO Capacitor Charge Time 3.8 s IDCO Capacitor Charge Energy 21 J IDCO Capacitor Charge Type Shock IDCO Episode Identifier [id number] IDCO Episode Date Time IDCO Episode Type Category Periodic EGM IDCO Episode Vendor Type Category APMRT IDCO Episode Detection And Therapy Details Presenting EGM IDCO Episode Identifier [id number] IDCO Episode Date Time IDCO Episode Type Category Other IDCO Episode Vendor Type Category XANDER IDCO Episode Detection Interval Ventricular 1,000 ms IDCO Episode Duration 58 s IDCO Episode Detection And Therapy Details IDCO Episode Identifier 46 IDCO Episode Date Time IDCO Episode Type Category Other IDCO Episode Vendor Type Category XANDER IDCO Episode Detection Interval Ventricular 984 ms IDCO Episode Duration 59 s IDCO Episode Detection And Therapy Details IDCO Episode Identifier 45 IDCO Episode Date Time IDCO Episode Type Category Other IDCO Episode Vendor Type Category XANDER IDCO Episode Detection Interval Ventricular 1,000 ms IDCO Episode Duration 60 s IDCO Episode Detection And Therapy Details IDCO Episode Identifier [id number] IDCO Episode Date Time IDCO Episode Type Category Other IDCO Episode Vendor Type Category XANDER IDCO Episode Detection Interval Ventricular 1,111 ms IDCO Episode Duration 59 s IDCO Episode Detection And Therapy Details IDCO Episode Identifier 43 IDCO Episode Date Time IDCO Episode Type Category Other IDCO Episode Vendor Type Category XANDER IDCO Episode Detection Interval Ventricular 968 ms IDCO Episode Duration 60 s IDCO Episode Detection And Therapy Details IDCO Episode Identifier 42 IDCO Episode Date Time IDCO Episode Type Category Other IDCO Episode Vendor Type Category XANDER IDCO Episode Detection Interval Ventricular 1,000 ms IDCO Episode Duration 60 s IDCO Episode Detection And Therapy Details RYMIQ IDCO Episode Identifier [id number] IDCO Episode Date Time IDCO Episode Type Category Other IDCO Episode Vendor Type Category XANDER IDCO Episode Detection Interval Ventricular 1,017 ms IDCO Episode Duration 59 s IDCO Episode Detection And Therapy Details RYQ IDCO Episode Identifier [id number] IDCO Episode Date Time IDCO Episode Type Category Other IDCO Episode Vendor Type Category XANDER IDCO Episode Detection Interval Ventricular 1,091 ms IDCO Episode Duration 60 s IDCO Episode Detection And Therapy Details RYQ IDCO Episode Identifier [id number] IDCO Episode Date Time IDCO Episode Type Category Other IDCO Episode Vendor Type Category XANDER IDCO Episode Detection Interval Ventricular 1,111 ms IDCO Episode Duration 59 s IDCO Episode Detection And Therapy Details Q IDCO Episode Identifier [id number] IDCO Episode Date Time IDCO Episode Type Category Other IDCO Episode Vendor Type Category XANDER IDCO Episode Detection Interval Ventricular 1,000 ms IDCO Episode Duration 59 s IDCO Episode Detection And Therapy Details Q IDCO Episode Identifier V IDCO Episode Date Time IDCO Episode Type Category VT IDCO Episode Vendor Type Category NSVT IDCO Episode Type Induced Flag NO IDCO Episode Detection Interval Ventricular 411 ms IDCO Episode Duration 9 s IDCO Episode Detection And Therapy Details NonSustV IDCO Episode Identifier IDCO Episode Date Time IDCO Episode Type Category VT IDCO Episode Vendor Type Category NSVT IDCO Episode Type Induced Flag NO IDCO Episode Detection Interval Ventricular 411 ms IDCO Episode Duration 5 s IDCO Episode Detection And Therapy Details NonSustV IDCO Episode Identifier V IDCO Episode Date Time IDCO Episode Type Category VT IDCO Episode Vendor Type Category NSVT IDCO Episode Type Induced Flag NO IDCO Episode Detection Interval Ventricular 411 ms IDCO Episode Duration 6 s IDCO Episode Detection And Therapy Details NonSustV IDCO Episode Identifier ATR-415 IDCO Episode Date Time IDCO Episode Type Category AT/AF IDCO Episode Vendor Type Category ATR IDCO Episode Detection Interval Atrial 1,034 ms IDCO Episode Duration 1 s IDCO Episode Detection And Therapy Details ATR IDCO Episode Identifier ATR-414 IDCO Episode Date Time IDCO Episode Type Category AT/AF IDCO Episode Vendor Type Category ATR IDCO Episode Detection Interval Atrial 240 ms IDCO Episode Duration 9,675 s IDCO Episode Detection And Therapy Details ATR IDCO Episode Identifier [id number] IDCO Episode Date Time [id number] IDCO Episode Type Category VT IDCO Episode [...] IDCO Episode Statistic Recent Date Time End 20200105 IDCO Episode Statistic Type Category VT IDCO Episode Statistic Vendor Type Category VT IDCO Episode Statistic Recent Count 0 IDCO Episode Statistic Recent Date Time Start 20190921 IDCO Episode Statistic Recent Date Time End 20200105 IDCO Episode Statistic Type Category VT IDCO Episode Statistic Vendor Type Category VT-1 IDCO Episode Statistic Recent Count 1 IDCO Episode Statistic Recent Date Time Start 20190921 IDCO Episode Statistic Recent Date Time End 20200105 IDCO Episode Statistic Type Category Monitor IDCO Episode Statistic Vendor Type Category IDCO Episode Statistic Recent Count 0 IDCO Episode Statistic Recent Date Time Start 20190921 IDCO Episode Statistic Recent Date Time End 20200105 IDCO Episode Statistic Type Category Other IDCO Episode Statistic Vendor Type Category IDCO Episode Statistic Recent Count 8 IDCO Episode Statistic Recent Date Time Start 20190921 IDCO Episode Statistic Recent Date Time End 20200105 IDCO Episode Statistic Type Category VT IDCO Episode Statistic Vendor Type Category NSVT IDCO Episode Statistic Recent Count 192 IDCO Episode Statistic Recent Date Time Start 20190921 IDCO Episode Statistic Recent Date Time End 20200105 IDCO Episode Statistic Type Category AT/AF IDCO Episode Statistic Vendor Type Category ATR IDCO Episode Statistic Recent Count 127 IDCO Episode Statistic Recent Date Time Start 20190921 IDCO Episode Statistic Recent Date Time End 20200105 IDCO Albaro Setting AT Mode Switch Mode [...] E162 IDCO Implantable Pulse Generator Serial Number [id number] IDCO Implantable Pulse Generator Supervisor Hard Candy [place] Scientific IDCO Implantable Pulse Generator Implant Date 20140110 IDCO Implantable Lead Model 4136 IDCO Implantable Lead Serial Number [id number] IDCO Implantable Lead Supervisor Hard Candy Guidant IDCO Implantable Lead Implant Date 20130421 IDCO Implantable Lead Polarity Type Bipolar Lead IDCO Implantable Lead Location Right Atrium IDCO Implantable Lead Model 0292 IDCO Implantable Lead Serial Number [id number] IDCO Implantable Lead Supervisor Hard Candy [place] Scientific IDCO Implantable Lead Implant Date IDCO Implantable Lead Location Right Ventricle IDCO Lead Channel Measurements Date and Time Start 20190921 IDCO Lead Channel Measurements Date and Time End 20200104 IDCO Lead Channel Sensing Intrinsic Amplitude Mean 3.5 mV IDCO Lead Channel Sensing Polarity Bipolar IDCO Lead Channel Pacing Threshold Amplitude 0.7 V IDCO Lead Channel Pacing Threshold Pulse Width 0.5 ms IDCO Lead Channel Pacing Threshold Measurement Method Window Display Designer Manual IDCO Lead Channel Pacing Threshold Polarity Bipolar IDCO Lead Channel Impedance Value 719 ohms IDCO Lead Channel Impedance Polarity Bipolar IDCO Lead Channel Measurements Date and Time Start 20190921 IDCO Lead Channel Measurements Date and Time End 20200104 IDCO Lead Channel Sensing Intrinsic Amplitude Mean 11.7 mV IDCO Lead Channel Sensing Polarity Bipolar IDCO Lead Channel Pacing Threshold Amplitude 0.6 V IDCO Lead Channel Pacing Threshold Pulse Width 0.5 ms IDCO Lead Channel Pacing Threshold Measurement Method Window Display Designer Manual IDCO Lead Channel Pacing Threshold Polarity Bipolar IDCO Lead Channel Impedance Value 589 ohms IDCO Lead Channel Impedance Polarity Bipolar IDCO Lead High Voltage Channel Date Time 20200104 IDCO Lead High Voltage Channel Impedance 103 ohms IDCO Lead High Voltage Channel Measurement Type Low Voltage Pulse IDCO Statistic Date Time Start 20190921 IDCO Statistic Date Time End 20200105 IDCO Albaro Statistic Date Time Start 20190921 IDCO Albaro Statistic Date Time End 20200105 IDCO Albaro Statistic RA Percent Paced 0 % IDCO Albaro Statistic RV Percent Paced 4 % IDCO Therapy Statistic Recent Date Time Start 20190921 IDCO Therapy Statistic Recent Date Time End 20200105 IDCO Therapy Statistic Recent Shocks Delivered 0 IDCO Therapy Statistic Total Date Time Start 20140110 IDCO Therapy Statistic Total Date Time End 20200105 IDCO Therapy Statistic Total Shocks Delivered 2 IDCO Therapy Statistic Recent Shocks Aborted 0 IDCO Therapy Statistic Total Shocks Aborted 0 IDCO Therapy Statistic Recent ATP Delivered 1 IDCO Therapy Statistic Total ATP Delivered 2 IDCO Anatomical Region Laterality Modality Other 01/05/2020 12:4 1 AM EDT Physician Cardiology IMPLANTABLE CARD IAC DEVICE documented in this encounter Visit Diagnoses Not on filedocumented in this encounter Care Teams Tank Truck Mechanic Relationship Specialty Start Date End Date Dewayne Carrington MD [address] [place] [address] PCP - General 09/02/16 documented as of this encounter
--- OUTSIDE RECORDS SUMMARY | 2023-11-03 01:24 | XMS_ITS | Encounter Summary ---
[place] [address] Care Team Providers Care Apartment Leasing Manager Name Role Phone Dewayne Carrington MD Primary Care Provider [phone] Encounter Details Date Type Department Care Team (Late st Contact Info) Description 12/06/2019 Orders Only Cardiology at [address] [phone] Social History Tobacco Use Types Packs/Day Years [...] EDT Hospital Encounter Non-Invasive [place] [address] Arrived documented as of this encounter Procedures Procedure Name Priority Date/Time Associated Diagnosis Comments CARDIAC DEVICE CHECK - REMOTE DEVICE INITIATED Routine 12/06/2019 12:54 AM EDT documented in this encounter Results * Cardiac device check - Remote Device Initiated (12/06/2019 12:54 AM EDT) Date Time Interrogation Session [id number] IDCO Type Interrogation Session Remote Device Initiated [facility] IDCO Battery Date Time of Measurements [id number] IDCO Battery Status Beginning of Service IDCO Battery Remaining Longevity 60 mo IDCO Battery Remaining Percentage 72 % IDCO Capacitor Last Charge Date Time [id number] IDCO Capacitor Charge Time 11.0 s IDCO Capacitor Charge Type Reformation IDCO Capacitor Last Charge Date Time [id number] IDCO Capacitor Charge Time 3.8 s IDCO Capacitor Charge Energy 21 J IDCO Capacitor Charge Type Shock IDCO Episode Identifier APM-44 IDCO Episode Date Time [id number] IDCO Episode Type Category Periodic EGM IDCO Episode Vendor Type Category APMRT IDCO Episode Detection And Therapy Details Presenting EGM IDCO Episode Identifier IDCO Episode Date Time IDCO Episode Type Category VT IDCO Episode Vendor Type Category NSVT IDCO Episode Type Induced Flag NO IDCO Episode Detection Interval Ventricular 438 ms IDCO Episode Duration 16 s IDCO Episode Detection And Therapy Details NonSustV IDCO Episode Identifier IDCO Episode Date Time IDCO Episode Type Category VT IDCO Episode Vendor Type Category NSVT IDCO Episode Type Induced Flag NO IDCO Episode Detection Interval Ventricular 382 ms IDCO Episode Duration 10 s IDCO Episode Detection And Therapy Details NonSustV IDCO Episode Identifier IDCO Episode Date Time IDCO Episode Type Category VT IDCO Episode Vendor Type Category NSVT IDCO Episode Type Induced Flag NO IDCO Episode Detection Interval Ventricular 408 ms IDCO Episode Duration 19 s IDCO Episode Detection And Therapy Details NonSustV IDCO Episode Identifier IDCO Episode Date Time IDCO Episode Type Category VT IDCO Episode Vendor Type Category NSVT IDCO Episode Type Induced Flag NO IDCO Episode Detection Interval Ventricular 451 ms IDCO Episode Duration 6 s IDCO Episode Detection And Therapy Details NonSustV IDCO Episode Identifier IDCO Episode Date Time IDCO Episode Type Category VT IDCO Episode Vendor Type Category NSVT IDCO Episode Type Induced Flag NO IDCO Episode Detection Interval Ventricular 373 ms IDCO Episode Duration 7 s IDCO Episode Detection And Therapy Details NonSustV IDCO Episode Identifier ATR-413 IDCO Episode Date Time IDCO Episode Type Category AT/AF IDCO Episode Vendor Type Category ATR IDCO Episode Detection Interval Atrial 249 ms IDCO Episode Detection And Therapy Details ATR IDCO Episode Identifier ATR-412 IDCO Episode Date Time IDCO Episode Type Category AT/AF IDCO Episode Vendor Type Category ATR IDCO Episode Detection Interval Atrial 822 ms IDCO Episode Duration 1 s IDCO Episode Detection And Therapy Details ATR IDCO Episode Identifier ATR-411 IDCO Episode Date Time IDCO Episode Type Category AT/AF IDCO Episode Vendor Type Category ATR IDCO Episode Detection Interval Atrial 896 ms IDCO Episode Duration 2 s IDCO Episode Detection And Therapy Details ATR IDCO Episode Identifier [id number] IDCO Episode Date Time [id number] IDCO Episode Type Category Other IDCO Episode Vendor Type Category XANDER IDCO Episode Detection Interval Ventricular 1,053 ms IDCO Episode Duration 54 s IDCO Episode Detection And Therapy Details IDCO Episode Identifier [id number] IDCO Episode Date Time [id number] IDCO Episode Type Category Other IDCO Episode Vendor Type Category XANDER IDCO Episode Detection Interval Ventricular 938 ms IDCO Episode Duration 56 s IDCO Episode Detection And Therapy Details IDCO Episode Identifier [id number] IDCO Episode Date Time [id number] IDCO Episode Type Category Other IDCO Episode Vendor Type Category XANDER IDCO Episode Detection Interval Ventricular 952 ms IDCO Episode Duration 54 s IDCO Episode Detection And Therapy Details IDCO Episode Identifier [id number] IDCO Episode Date Time [id number] IDCO Episode Type Category Other IDCO Episode Vendor Type Category XANDER IDCO Episode Detection Interval Ventricular 1,017 ms IDCO Episode Duration 56 s IDCO Episode Detection And Therapy Details IDCO Episode Identifier [id number] IDCO Episode Date Time [id number] IDCO Episode Type Category Other IDCO Episode Vendor Type Category XANDER IDCO Episode Detection Interval Ventricular 833 ms IDCO Episode Duration 49 s IDCO Episode Detection And Therapy Details Q IDCO Episode Identifier [id number] IDCO Episode Date Time [id number] IDCO Episode Type Category Other IDCO Episode Vendor Type Category XANDER IDCO Episode Detection Interval Ventricular 938 ms IDCO Episode Duration 50 s IDCO Episode Detection And Therapy Details IDCO Episode Identifier [id number] IDCO Episode Date Time [id number] IDCO Episode Type Category Other IDCO Episode Vendor Type Category XANDER IDCO Episode Detection Interval Ventricular 938 ms IDCO Episode Duration 57 s IDCO Episode Detection And Therapy Details IDCO Episode Identifier [id number] IDCO Episode Date Time [id number] IDCO Episode Type Category Other IDCO Episode Vendor Type Category XANDER IDCO Episode Detection Interval Ventricular 923 ms IDCO Episode Duration 55 s IDCO Episode Detection And Therapy Details IDCO Episode Identifier [id number] IDCO Episode Date Time [id number] IDCO Episode Type Category Other IDCO Episode Vendor Type Category XANDER IDCO Episode Detection Interval Ventricular 909 ms IDCO Episode Duration 54 s IDCO Episode Detection And Therapy Details IDCO Episode Identifier [id number] IDCO Episode Date Time [id number] IDCO Episode Type Category Other IDCO Episode Vendor Type Category XANDER IDCO Episode Detection Interval Ventricular 923 ms IDCO Episode Duration 55 s IDCO Episode Detection And Therapy Details IDCO Episode Identifier ATR-410 IDCO Episode Date Time [id number] IDCO Episode Type Category AT/AF IDCO Episode Vendor Type Category ATR IDCO Episode Detection Interval Atrial 252 ms IDCO Episode Duration 7 s IDCO Episode Detection And Therapy Details ATR IDCO Episode Identifier IDCO Episode Date Time [id number] IDCO Episode Type Category VT IDCO Episode Vendor Type Category NSVT IDCO Episode Type Induced Flag NO IDCO Episode Detection Interval Ventricular 390 ms IDCO Episode Duration 6 s IDCO Episode Detection And Therapy Details NonSustV IDCO Episode Identifier IDCO Episode Date Time [id number] IDCO Episode Type Category VT IDCO Episode Vendor Type Category NSVT IDCO Episode Type Induced Flag NO IDCO Episode Detection Interval Ventricular 397 ms IDCO Episode Duration 6 s IDCO Episode Detection And Therapy Details NonSustV IDCO Episode Identifier IDCO Episode Date Time [id number] IDCO Episode Type Category VT IDCO Episode Vendor Type Category NSVT IDCO Episode Type Induced Flag NO IDCO Episode Detection Interval Ventricular 390 ms IDCO Episode Duration 8 s IDCO Episode Detection And Therapy Details NonSustV IDCO Episode Identifier IDCO Episode Date Time [id number] IDCO Episode Type Category VT IDCO Episode Vendor Type Category NSVT IDCO Episode Type Induced Flag NO IDCO Episode Detection Interval Ventricular 387 ms IDCO Episode Duration 9 s IDCO Episode Detection And Therapy Details NonSustV IDCO Episode Identifier V IDCO Episode Date Time [id number] IDCO Episode Type Category VT IDCO Episode Vendor Type Category NSVT IDCO Episode Type Induced Flag NO IDCO Episode Detection Interval Ventricular 395 ms IDCO Episode Duration 6 s IDCO Episode Detection And Therapy Details NonSustV IDCO Episode Identifier [id number]-409 IDCO Episode Date Time [id number] IDCO Episode Type Category AT/AF IDCO Episode Vendor Type Category ATR IDCO Episode Detection Interval Atrial 202 ms IDCO Episode Duration 202,252 s IDCO Episode Detection And Therapy Details ATR IDCO Episode Statistic Type Category VF IDCO Episode Statistic Vendor Type Category VF IDCO Episode Statistic Recent Count 0 IDCO Episode Statistic Recent Date Time Start 20190921 IDCO Episode Statistic Recent Date Time End 20191206 IDCO Episode Statistic Type Category VT IDCO Episode Statistic Vendor Type Category VT IDCO Episode Statistic Recent Count 0 IDCO Episode Statistic Recent Date Time Start 20190921 IDCO Episode Statistic Recent Date Time End 20191206 IDCO Episode Statistic Type Category VT IDCO Episode Statistic Vendor Type Category VT-1 IDCO Episode Statistic Recent Count 1 IDCO Episode Statistic Recent Date Time Start 20190921 IDCO Episode Statistic Recent Date Time End 20191206 IDCO Episode Statistic Type Category Monitor IDCO Episode Statistic Vendor Type Category IDCO Episode Statistic Recent Count 0 IDCO Episode Statistic Recent Date Time Start 20190921 IDCO Episode Statistic Recent Date Time End 20191206 IDCO Episode Statistic Type Category Other IDCO Episode Statistic Vendor Type Category IDCO Episode Statistic Recent Count 8 IDCO Episode Statistic Recent Date Time Start 20190921 IDCO Episode Statistic Recent Date Time End 20191206 IDCO Episode Statistic Type Category VT IDCO Episode Statistic Vendor Type Category NSVT IDCO Episode Statistic Recent Count 188 IDCO Episode Statistic Recent Date Time Start 20190921 IDCO Episode Statistic Recent Date Time End 20191206 IDCO Episode Statistic Type Category AT/AF IDCO Episode Statistic Vendor Type Category ATR IDCO Episode Statistic Recent Count 124 IDCO Episode Statistic Recent Date Time Start 20190921 IDCO Episode Statistic Recent Date Time End 20191206 IDCO Albaro Setting AT Mode Switch Mode [...] E162 IDCO Implantable Pulse Generator Serial Number [id number] IDCO Implantable Pulse Generator Production Grader [place] Scientific IDCO Implantable Pulse Generator Implant Date 20140110 IDCO Implantable Lead Model 4136 IDCO Implantable Lead Serial Number [id number] IDCO Implantable Lead Production Grader Guidant IDCO Implantable Lead Implant Date 20130421 IDCO Implantable Lead Polarity Type Bipolar Lead IDCO Implantable Lead Location Right Atrium IDCO Implantable Lead Model 0292 IDCO Implantable Lead Serial Number [id number] IDCO Implantable Lead Production Grader [place] Scientific IDCO Implantable Lead Implant Date IDCO Implantable Lead Location Right Ventricle IDCO Lead Channel Measurements Date and Time Start 20190921 IDCO Lead Channel Measurements Date and Time End 20191204 IDCO Lead Channel Sensing Intrinsic Amplitude Mean 8.8 mV IDCO Lead Channel Sensing Polarity Bipolar IDCO Lead Channel Pacing Threshold Amplitude 0.7 V IDCO Lead Channel Pacing Threshold Pulse Width 0.5 ms IDCO Lead Channel Pacing Threshold Measurement Method Subway Guard Manual IDCO Lead Channel Pacing Threshold Polarity Bipolar IDCO Lead Channel Impedance Value 760 ohms IDCO Lead Channel Impedance Polarity Bipolar IDCO Lead Channel Measurements Date and Time Start 20190921 IDCO Lead Channel Measurements Date and Time End 20191204 IDCO Lead Channel Sensing Intrinsic Amplitude Mean 12.5 mV IDCO Lead Channel Sensing Polarity Bipolar IDCO Lead Channel Pacing Threshold Amplitude 0.6 V IDCO Lead Channel Pacing Threshold Pulse Width 0.5 ms IDCO Lead Channel Pacing Threshold Measurement Method Subway Guard Manual IDCO Lead Channel Pacing Threshold Polarity Bipolar IDCO Lead Channel Impedance Value 626 ohms IDCO Lead Channel Impedance Polarity Bipolar IDCO Lead High Voltage Channel Date Time 20191204 IDCO Lead High Voltage Channel Impedance 91 ohms IDCO Lead High Voltage Channel Measurement Type Low Voltage Pulse IDCO Statistic Date Time Start 20190921 IDCO Statistic Date Time End 20191206 IDCO Albaro Statistic Date Time Start 20190921 IDCO Ablaro Statistic Date Time End 20191206 IDCO Albaro Statistic RA Percent Paced 0 % IDCO Albaro Statistic RV Percent Paced 5 % IDCO Therapy Statistic Recent Date Time Start 20190921 IDCO Therapy Statistic Recent Date Time End 20191206 IDCO Therapy Statistic Recent Shocks Delivered 0 IDCO Therapy Statistic Total Date Time Start 20140110 IDCO Therapy Statistic Total Date Time End 20191206 IDCO Therapy Statistic Total Shocks Delivered 2 IDCO Therapy Statistic Recent Shocks Aborted 0 IDCO Therapy Statistic Total Shocks Aborted 0 IDCO Therapy Statistic Recent ATP Delivered 1 IDCO Therapy Statistic Total ATP Delivered 2 IDCO Anatomical Region Laterality Modality Other 12/06/2019 12:5 4 AM EDT Physician Cardiology IMPLANTABLE CARD IAC DEVICE documented in this encounter Visit Diagnoses Not on filedocumented in this encounter Care Teams Apartment Leasing Manager Relationship Specialty Start Date End Date Dewayne Carrington MD [address] [place] [address] PCP - General 09/02/16 documented as of this encounter
--- OUTSIDE RECORDS SUMMARY | 2023-11-03 01:24 | XMS_ITS | Encounter Summary ---
[place] [address] Care Team Providers Care Hat Sprayer Name Role Phone Dewayne Carrington MD Primary Care Provider [phone] Encounter Details Date Type Department Care Team (Late st Contact Info) Description 08/04/2019 Orders Only Cardiology at [address] [address] Social History Tobacco Use Types Packs/Day Years [...] AM EDT Hospital Encounter [place] [address] Arrived documented as of this encounter Procedures Procedure Name Priority Date/Time Associated Diagnosis Comments CARDIAC DEVICE CHECK - REMOTE SCHEDULED Routine 08/04/2019 12:42 AM EDT documented in this encounter Results * Cardiac device check - Remote Scheduled (08/04/2019 12:42 AM EDT) Date Time Interrogation Session [id number] IDCO Type Interrogation Session Remote Scheduled IDCO Clinic Name [facility] IDCO Battery Date Time of Measurements [id number] IDCO Battery Status Beginning of Service IDCO Battery Remaining Longevity 66 mo IDCO Battery Remaining Percentage 81 % IDCO Capacitor Last Charge Date Time IDCO Capacitor Charge Time 10.9 s IDCO Capacitor Charge Type Reformation IDCO Capacitor Last Charge Date Time IDCO Capacitor Charge Time 3.8 s IDCO Capacitor Charge Energy 21 J IDCO Capacitor Charge Type Shock IDCO Episode Identifier [id number] IDCO Episode Date Time IDCO Episode Type Category Periodic EGM IDCO Episode Vendor Type Category APMRT IDCO Episode Detection And Therapy Details Presenting EGM IDCO Episode Identifier [id number] IDCO Episode Date Time IDCO Episode Type Category Other IDCO Episode Vendor Type Category XANDER IDCO Episode Detection Interval Ventricular 938 ms IDCO Episode Duration 53 s IDCO Episode Detection And Therapy Details IDCO Episode Identifier [id number] IDCO Episode Date Time IDCO Episode Type Category Other IDCO Episode Vendor Type Category XANDER IDCO Episode Detection Interval Ventricular 909 ms IDCO Episode Duration 53 s IDCO Episode Detection And Therapy Details IDCO Episode Identifier [id number] IDCO Episode Date Time IDCO Episode Type Category Other IDCO Episode Vendor Type Category XANDER IDCO Episode Detection Interval Ventricular 857 ms IDCO Episode Duration 52 s IDCO Episode Detection And Therapy Details IDCO Episode Identifier [id number] IDCO Episode Date Time IDCO Episode Type Category Other IDCO Episode Vendor Type Category XANDER IDCO Episode Detection Interval Ventricular 909 ms IDCO Episode Duration 53 s IDCO Episode Detection And Therapy Details IDCO Episode Identifier [id number] IDCO Episode Date Time [id number] IDCO Episode Type Category Other IDCO Episode Vendor Type Category XANDER IDCO Episode Detection Interval Ventricular 909 ms IDCO Episode Duration 54 s IDCO Episode Detection And Therapy Details IDCO Episode Identifier [id number] IDCO Episode Date Time [id number] IDCO Episode Type Category Other IDCO Episode Vendor Type Category XANDER IDCO Episode Detection Interval Ventricular 968 ms IDCO Episode Duration 57 s IDCO Episode Detection And Therapy Details [id number] Episode Date Time [id number] IDCO Episode Type Category Other IDCO Episode Vendor Type Category XANDER IDCO Episode Detection Interval Ventricular 952 ms IDCO Episode Duration 57 s IDCO Episode Detection And Therapy Details [facility] IDCO Episode Identifier [id number] IDCO Episode Date Time [id number] IDCO Episode Type Category Other IDCO Episode Vendor Type Category XANDER IDCO Episode Detection Interval Ventricular 952 ms IDCO Episode Duration 56 s IDCO Episode Detection And Therapy Details [facility] IDCO Episode Identifier [id number] IDCO Episode Date Time [id number] IDCO Episode Type Category Other IDCO Episode Vendor Type Category XANDER IDCO Episode Detection Interval Ventricular 952 ms IDCO Episode Duration 57 s IDCO Episode Detection And Therapy Details [facility] IDCO Episode Identifier [id number] IDCO Episode Date Time [id number] IDCO Episode Type Category Other IDCO Episode Vendor Type Category XANDER IDCO Episode Detection Interval Ventricular 952 ms IDCO Episode Duration 56 s IDCO Episode Detection And Therapy Details [place] IDCO Episode Identifier [id number] IDCO Episode Date Time [id number] IDCO Episode Type Category AT/AF IDCO Episode Vendor Type Category ATR IDCO Episode Detection Interval Atrial 276 ms IDCO Episode Duration 17,329 s IDCO Episode Detection And Therapy Details ATR IDCO Episode Identifier [id number] IDCO Episode Date Time [id number] IDCO Episode Type Category AT/AF IDCO Episode Vendor Type Category ATR IDCO Episode Detection Interval Atrial 262 ms IDCO Episode Duration 41,381 s IDCO Episode Detection And Therapy Details ATR IDCO Episode Identifier [id number] IDCO Episode Date Time [id number] IDCO Episode Type Category AT/AF IDCO Episode Vendor Type Category ATR IDCO Episode Detection Interval Atrial 577 ms IDCO Episode Duration 5 s IDCO Episode Detection And Therapy Details ATR IDCO Episode Statistic Type Category VF IDCO Episode Statistic Vendor Type Category VF IDCO Episode Statistic Recent Count 0 IDCO Episode Statistic Recent Date Time Start 20180408 IDCO Episode Statistic Recent Date Time End 20190804 IDCO Episode Statistic Type Category VT IDCO Episode Statistic Vendor Type Category VT IDCO Episode Statistic Recent Count 0 IDCO Episode Statistic Recent Date Time Start 20180408 IDCO Episode Statistic Recent Date Time End 20190804 IDCO Episode Statistic Type Category VT IDCO Episode Statistic Vendor Type Category VT-1 IDCO Episode Statistic Recent Count 0 IDCO Episode Statistic Recent Date Time Start 20180408 IDCO Episode Statistic Recent Date Time End 20190804 IDCO Episode Statistic Type Category Monitor IDCO Episode Statistic Vendor Type Category IDCO Episode Statistic Recent Count 0 IDCO Episode Statistic Recent Date Time Start 20180408 IDCO Episode Statistic Recent Date Time End 20190804 IDCO Episode Statistic Type Category Other IDCO Episode Statistic Vendor Type Category IDCO Episode Statistic Recent Count 0 IDCO Episode Statistic Recent Date Time Start 20180408 IDCO Episode Statistic Recent Date Time End 20190804 IDCO Episode Statistic Type Category VT IDCO Episode Statistic Vendor Type Category NSVT IDCO Episode Statistic Recent Count 293 IDCO Episode Statistic Recent Date Time Start 20180408 IDCO Episode Statistic Recent Date Time End 20190804 IDCO Episode Statistic Type Category AT/AF IDCO Episode Statistic Vendor Type Category ATR IDCO Episode Statistic Recent Count 90 IDCO Episode Statistic Recent Date Time Start 20180408 IDCO Episode Statistic Recent Date Time End 20190804 IDCO Albaro Setting AT Mode Switch Mode [...] E162 IDCO Implantable Pulse Generator Serial Number [id number] IDCO Implantable Pulse Generator Outcomes Analyst [place] [employer] IDCO Implantable Pulse Generator Implant Date 20140110 IDCO Implantable Lead Model 4136 IDCO Implantable Lead Serial Number [id number] IDCO Implantable Lead Outcomes Analyst Guidant IDCO Implantable Lead Implant Date 20130421 IDCO Implantable Lead Polarity Type Bipolar Lead IDCO Implantable Lead Location Right Atrium IDCO Implantable Lead Model 0292 IDCO Implantable Lead Serial Number [id number] IDCO Implantable Lead Outcomes Analyst [place] [employer] IDCO Implantable Lead Implant Date IDCO Implantable Lead Location Right Ventricle IDCO Lead Channel Measurements Date and Time Start 20180408 IDCO Lead Channel Measurements Date and Time End 20190803 IDCO Lead Channel Sensing Intrinsic Amplitude Mean 4.2 mV IDCO Lead Channel Sensing Polarity Bipolar IDCO Lead Channel Pacing Threshold Amplitude 0.7 V IDCO Lead Channel Pacing Threshold Pulse Width 0.5 ms IDCO Lead Channel Pacing Threshold Measurement Method Shipping Receiving Manager Manual IDCO Lead Channel Pacing Threshold Polarity Bipolar IDCO Lead Channel Impedance Value 710 ohms IDCO Lead Channel Impedance Polarity Bipolar IDCO Lead Channel Measurements Date and Time Start 20180408 IDCO Lead Channel Measurements Date and Time End 20190803 IDCO Lead Channel Sensing Intrinsic Amplitude Mean 10.4 mV IDCO Lead Channel Sensing Polarity Bipolar IDCO Lead Channel Pacing Threshold Amplitude 0.7 V IDCO Lead Channel Pacing Threshold Pulse Width 0.5 ms IDCO Lead Channel Pacing Threshold Measurement Method Shipping Receiving Manager Manual IDCO Lead Channel Pacing Threshold Polarity Bipolar IDCO Lead Channel Impedance Value 635 ohms IDCO Lead Channel Impedance Polarity Bipolar IDCO Lead High Voltage Channel Date Time 20190803 IDCO Lead High Voltage Channel Impedance 88 ohms IDCO Lead High Voltage Channel Measurement Type Low Voltage Pulse IDCO Statistic Date Time Start 20180408 IDCO Statistic Date Time End 20190804 IDCO Albaro Statistic Date Time Start 20180408 IDCO Albaro Statistic Date Time End 20190804 IDCO Albaro Statistic RA Percent Paced 1 % IDCO Albaro Statistic RV Percent Paced 2 % IDCO Therapy Statistic Recent Date Time Start 20180408 IDCO Therapy Statistic Recent Date Time End 20190804 IDCO Therapy Statistic Recent Shocks Delivered 0 IDCO Therapy Statistic Total Date Time Start 20140110 IDCO Therapy Statistic Total Date Time End 20190804 IDCO Therapy Statistic Total Shocks Delivered 2 IDCO Therapy Statistic Recent Shocks Aborted 0 IDCO Therapy Statistic Total Shocks Aborted 0 IDCO Therapy Statistic Recent ATP Delivered 0 IDCO Therapy Statistic Total ATP Delivered 1 IDCO Anatomical Region Laterality Modality Other 08/04/2019 12:4 2 AM EDT Physician Cardiology IMPLANTABLE CARD IAC DEVICE documented in this encounter Visit Diagnoses Not on filedocumented in this encounter Care Teams Hat Sprayer Relationship Specialty Start Date End Date Dewayne Carrington MD [address] [place] [address] PCP - General 09/02/16 documented as of this encounter
--- OUTSIDE RECORDS SUMMARY | 2023-11-03 01:24 | XMS_ITS | Encounter Summary ---
Author Organization [facility] Address [facility] [place] [address] Care Team Providers Care Fleet Administrator Name Role Phone Dewayne Carrington MD Primary Care Provider [phone] Encounter Details Date Type Department Care Team (Late st Contact Info) Description 11/14/2019 Notes Only Cardiology at [address] [address] Edy Torres PA [facility] [place] [address] Social History Tobacco Use Types Packs/Day Years [...] Progress Notes * Edy Torres PA - 11/14/2019 11:57 AM EDT Cardiac Electrophysiology Cardiac Implantable Electronic Device Remote Monitoring Interpretation Transmission Date: 11/12/2019 Device Type: ICD Generator waitangi tribunal member: BSC Battery Status: good; five years Atrial lead status: OK Right ventricular lead status: OK Left ventricular lead status: n/a Physiologic Monitoring: n/a Events/Arrhythmias noted since last reset : Atrial fib/flutter4% burden; >24 hrs since 11/10 Impression: Normally functioning device No HV therapy Known PAF/flutter; anticoagulated MAXIMO Leija Cardiac Electrophysiology documented in this encounter Plan of Treatment Upcoming Encounters Date Type Department Care Team (Late st Contact Info) Description 12/18/2023 10:00 AM EDT Hospital Encounter Non-[place]vasive [place] [address] Arrived documented as of this encounter Visit Diagnoses Not on filedocumented in this encounter Care Teams Fleet Administrator Relationship Specialty Start Date End Date Dewayne Carrington MD [address] [place] [address] PCP - General 09/02/16 documented as of this encounter
--- OUTSIDE RECORDS SUMMARY | 2023-11-03 01:24 | XMS_ITS | Encounter Summary ---
Author Organization [facility] Address [facility] [place] [address] Care Team Providers Care Pathology Lab Technician Name Role Phone Dewayne Carrington MD Primary Care Provider [phone] Encounter Details Date Type Department Care Team ([facility] st Contact Info) Description 09/30/[address] [facility] [place] [address] [place] [facility] [place] [address] Social History Tobacco Use Types Packs/Day Years [...] Progress Notes * Edy Burns PA - 09/30/2019 4:26 PM EDT Cardiac Electrophysiology Cardiac Implantable Electronic Device Remote Monitoring Interpretation Transmission Date: 09/30/2019 Device Type: ICD Generator procurement accountant: [facility] Battery Status: Beginning of Service Atrial lead status: OK Right ventricular lead status: OK Left ventricular lead status: NA Physiologic Monitoring: OK Events/Arrhythmias noted since last reset September 21, 2019: On September 27 there was a 19.5 hr episode of AF with a controlled ventricular rate. One September 28 there was an 8.7hr episode of AF with a controlledventricular rate. Impression: Normally functioning device Known paroxysmal A-FIB Comment: Patient is known to be anticoagulated. documented in this encounter Plan of Treatment Upcoming Encounters Date Type Department Care Team (Late st Contact Info) Description 12/18/2023 10:00 AM EDT Hospital Encounter [place] [address] Arrived documented as of this encounter Visit Diagnoses Not on filedocumented in this encounter Care Teams Pathology Lab Technician Relationship Specialty Start Date End Date Dewayne Carrington MD [address] [place] [address] PCP - General 09/02/16 documented as of this encounter
--- OUTSIDE RECORDS SUMMARY | 2023-11-03 01:24 | XMS_ITS | Encounter Summary ---
[place] [address] Care Team Providers Care Graphics Editor Name Role Phone Dewayne Carrington MD Primary Care Provider [phone] Encounter Details Date Type Department Care Team (Late st Contact Info) Description 12/06/2019 Orders Only Cardiology at [address] [address] Social History Tobacco Use Types Packs/Day Years [...] AM EDT Hospital Encounter [place] [address] Arrived documented as of this encounter Procedures Procedure Name Priority Date/Time Associated Diagnosis Comments CARDIAC DEVICE CHECK - REMOTE PATIENT INITIATED Routine 12/06/2019 12:55 PM EDT documented in this encounter Results * Cardiac device check - Remote Patient Initiated (12/06/2019 12:55 PM EDT) Date Time Interrogation Session [id number] IDCO Type Interrogation Session Remote Patient Initiated [facility] IDCO Battery Date Time of Measurements [id number] IDCO Battery Status Beginning of Service IDCO Battery Remaining Longevity 60 mo IDCO Battery Remaining Percentage 72 % IDCO Capacitor Last Charge Date Time IDCO Capacitor Charge Time 11.0 s IDCO Capacitor Charge Type Reformation IDCO Capacitor Last Charge Date Time IDCO Capacitor Charge Time 3.8 s IDCO Capacitor Charge Energy 21 J IDCO Capacitor Charge Type Shock IDCO Episode Identifier APM-45 IDCO Episode Date Time IDCO Episode Type Category Periodic EGM IDCO Episode Vendor Type Category APMRT IDCO Episode Detection And Therapy Details Presenting EGM IDCO Episode Identifier [id number] IDCO Episode Date Time IDCO Episode Type Category AT/AF IDCO Episode Vendor Type Category ATR IDCO Episode Detection Interval Atrial 249 ms IDCO Episode Duration 147,857 s IDCO Episode Detection And Therapy Details [...] Category ATR IDCO Episode Statistic Recent Count 125 IDCO Episode Statistic Recent Date Time Start [...] E162 IDCO Implantable Pulse Generator Serial Number [id number] IDCO Implantable Pulse Generator Motors And Generators Inspector [place] [employer] IDCO Implantable Pulse Generator Implant Date 20140110 IDCO Implantable Lead Model 4136 IDCO Implantable Lead Serial Number [id number] IDCO Implantable Lead Motors And Generators Inspector Guidant IDCO Implantable Lead Implant Date 20130421 IDCO Implantable Lead Polarity Type Bipolar Lead IDCO Implantable Lead Location Right Atrium IDCO Implantable Lead Model 0292 IDCO Implantable Lead Serial Number [id number] IDCO Implantable Lead Motors And Generators Inspector [place] [employer] IDCO Implantable Lead Implant Date IDCO [...] IDCO Lead Channel Pacing Threshold Measurement Method Tenoner Operator Manual IDCO Lead Channel Pacing Threshold [...] IDCO Lead Channel Pacing Threshold Measurement Method Tenoner Operator Manual IDCO Lead Channel Pacing Threshold [...] [id number] IDCO Albaro Statistic Date Time End 20191206 IDCO Albaro [...] Anatomical Region Laterality Modality Other 12/06/2019 12:5 5 PM EDT Physician Cardiology IMPLANTABLE CARD IAC DEVICE documented in this encounter Visit Diagnoses Not on filedocumented in this encounter Care Teams Graphics Editor Relationship Specialty Start Date End Date Dewayne Carrington MD [address] [place] [address] PCP - General 09/02/16 documented as of this encounter
--- OUTSIDE RECORDS SUMMARY | 2023-11-03 01:24 | XMS_ITS | Encounter Summary ---
[place] [address] Care Team Providers Care Fire Extinguisher Installer Name Role Phone Dewayne Carrington MD Primary Care Provider [phone] Encounter Details Date Type Department Care Team (Late st Contact Info) Description 11/12/2019 Orders Only Cardiology at [address] [address] Social History Tobacco Use Types Packs/Day Years [...] AM EDT Hospital Encounter Non-[place] [address] Arrived documented as of this encounter Procedures Procedure Name Priority Date/Time Associated Diagnosis Comments CARDIAC DEVICE CHECK - REMOTE DEVICE INITIATED Routine 11/12/2019 12:43 AM EDT documented in this encounter Results * Cardiac device check - Remote Device Initiated (11/12/2019 12:43 AM EDT) Date Time Interrogation Session [id number] IDCO Type Interrogation Session Remote Device Initiated [facility] IDCO Battery Date Time of Measurements [id number] IDCO Battery Status Beginning of Service IDCO Battery Remaining Longevity 60 mo IDCO Battery Remaining Percentage 72 % IDCO Capacitor Last Charge Date Time [id number] IDCO Capacitor Charge Time 11.0 s IDCO Capacitor Charge Type Reformation IDCO Capacitor Last Charge Date Time [id number] IDCO Capacitor Charge Time 3.8 s IDCO Capacitor Charge Energy 21 J IDCO Capacitor Charge Type Shock IDCO Episode Identifier [id number] IDCO Episode Date Time [id number] IDCO Episode Type Category Periodic EGM IDCO Episode Vendor Type Category APMRT IDCO Episode Detection And Therapy Details Presenting EGM IDCO Episode Identifier IDCO Episode Date Time IDCO Episode Type Category VT IDCO Episode Vendor Type Category NSVT IDCO Episode Type Induced Flag NO IDCO Episode Detection Interval Ventricular 377 ms IDCO Episode Duration 8 s IDCO [...] Flag NO IDCO Episode Detection Interval Ventricular 426 ms IDCO Episode Duration 7 s IDCO Episode Detection And Therapy Details NonSustV IDCO Episode Identifier IDCO Episode Date Time IDCO Episode Type Category VT IDCO Episode Vendor Type Category NSVT IDCO Episode Type Induced Flag NO IDCO Episode Detection Interval Ventricular 370 ms IDCO Episode Duration 21 s IDCO Episode Detection And Therapy Details NonSustV IDCO Episode Identifier IDCO Episode Date Time IDCO Episode Type Category VT IDCO Episode Vendor Type Category NSVT IDCO Episode Type Induced Flag NO IDCO Episode Detection Interval Ventricular 411 ms IDCO Episode Duration 11 s IDCO Episode Detection And Therapy Details NonSustV IDCO Episode Identifier IDCO Episode Date Time IDCO Episode Type Category VT IDCO Episode Vendor Type Category NSVT IDCO Episode Type Induced Flag NO IDCO Episode Detection Interval Ventricular 405 ms IDCO Episode Duration 9 s IDCO Episode Detection And Therapy Details NonSustV IDCO Episode Identifier IDCO Episode Date Time IDCO Episode Type Category VT IDCO Episode Vendor Type Category NSVT IDCO Episode Type Induced Flag NO IDCO Episode Detection Interval Ventricular 390 ms IDCO Episode Duration 26 s IDCO Episode Detection And Therapy Details NonSustV IDCO Episode Identifier IDCO Episode Date Time IDCO Episode Type Category VT IDCO Episode Vendor Type Category NSVT IDCO Episode Type Induced Flag NO IDCO Episode Detection Interval Ventricular 408 ms IDCO Episode Duration 9 s IDCO Episode Detection And Therapy Details NonSustV IDCO Episode Identifier IDCO Episode Date Time IDCO Episode Type Category VT IDCO Episode Vendor Type Category NSVT IDCO Episode Type Induced Flag NO IDCO Episode Detection Interval Ventricular 382 ms IDCO Episode Duration 22 s IDCO Episode Detection And Therapy Details NonSustV IDCO Episode Identifier IDCO Episode Date Time IDCO Episode Type Category VT IDCO Episode Vendor Type Category NSVT IDCO Episode Type Induced Flag NO IDCO Episode Detection Interval Ventricular 368 ms IDCO Episode Duration 35 s IDCO Episode Detection And Therapy Details NonSustV IDCO Episode Identifier [id number] IDCO Episode Date Time IDCO Episode Type Category AT/AF IDCO Episode Vendor Type Category ATR IDCO Episode Detection Interval Atrial 202 ms IDCO Episode Detection And Therapy Details ATR IDCO Episode Identifier [id number] IDCO Episode Date Time IDCO Episode Type Category AT/AF IDCO Episode Vendor Type Category ATR IDCO Episode Detection Interval Atrial 260 ms IDCO Episode Duration 113,730 s IDCO Episode Detection And Therapy Details ATR IDCO Episode Identifier ATR-[id number] IDCO Episode Date Time IDCO Episode Type Category AT/AF IDCO Episode Vendor Type Category ATR IDCO Episode Detection Interval Atrial 870 ms IDCO Episode Duration 3 s IDCO Episode Detection And Therapy Details ATR IDCO Episode Identifier ATR-406 IDCO Episode Date Time IDCO Episode Type Category AT/AF IDCO Episode Vendor Type Category ATR IDCO Episode Detection Interval Atrial 258 ms IDCO Episode Duration 40 s IDCO Episode Detection And Therapy Details ATR IDCO Episode Identifier [id number] IDCO Episode Date Time IDCO Episode Type Category Other IDCO Episode Vendor Type Category XANDER IDCO Episode Detection Interval Ventricular 1,000 ms IDCO Episode Duration 53 s IDCO Episode Detection And Therapy Details Q IDCO Episode Identifier [id number] IDCO Episode Date Time IDCO Episode Type Category Other IDCO Episode Vendor Type Category XANDER IDCO Episode Detection Interval Ventricular 1,000 ms IDCO Episode Duration 54 s IDCO Episode Detection And Therapy Details Q IDCO Episode Identifier [id number] IDCO Episode Date Time IDCO Episode Type Category Other IDCO Episode Vendor Type Category XANDER IDCO Episode Detection Interval Ventricular 984 ms IDCO Episode Duration 54 s IDCO Episode Detection And Therapy Details IDCO Episode Identifier [id number] IDCO Episode Date Time IDCO Episode Type Category Other IDCO Episode Vendor Type Category XANDER IDCO Episode Detection Interval Ventricular 1,000 ms IDCO Episode Duration 54 s IDCO Episode Detection And Therapy Details Q IDCO Episode Identifier [id number] IDCO Episode Date Time IDCO Episode Type Category Other IDCO Episode Vendor Type Category XANDER IDCO Episode Detection Interval Ventricular 938 ms IDCO Episode Duration 54 s IDCO Episode Detection And Therapy Details IDCO Episode Identifier [id number] IDCO Episode Date Time IDCO Episode Type Category Other IDCO Episode Vendor Type Category XANDER IDCO Episode Detection Interval Ventricular 1,017 ms IDCO Episode Duration 53 s IDCO Episode Detection And Therapy Details Q IDCO Episode Identifier [id number] IDCO Episode Date Time [id number] IDCO Episode Type Category Other IDCO Episode Vendor Type Category XANDER IDCO Episode Detection Interval Ventricular 1,364 ms IDCO Episode Duration 60 s IDCO Episode Detection And Therapy Details Q IDCO Episode Identifier [id number] IDCO Episode Date Time IDCO Episode Type Category Other IDCO Episode Vendor Type Category XANDER IDCO Episode Detection Interval Ventricular 1,071 ms IDCO Episode Duration 61 s IDCO Episode Detection And Therapy Details RYQ IDCO Episode Identifier [id number] IDCO Episode Date Time IDCO Episode Type Category Other IDCO Episode Vendor Type Category XANDER IDCO Episode Detection Interval Ventricular 984 ms IDCO Episode Duration 61 s IDCO Episode Detection And Therapy Details IDCO Episode Identifier [id number] IDCO Episode Date Time IDCO Episode Type Category Other IDCO Episode Vendor Type Category XANDER IDCO Episode Detection Interval Ventricular 1,091 ms IDCO Episode Duration 61 s IDCO Episode Detection And Therapy Details IDCO Episode Identifier [id number]-405 IDCO Episode Date Time IDCO Episode Type Category AT/AF IDCO Episode Vendor Type Category ATR IDCO Episode Detection Interval Atrial 265 ms IDCO Episode Duration 160 s IDCO Episode Detection And Therapy Details ATR IDCO Episode Identifier ATR-404 IDCO Episode Date Time IDCO Episode Type Category AT/AF IDCO Episode Vendor Type Category ATR IDCO Episode Detection Interval Atrial 274 ms IDCO Episode Duration 65,595 s IDCO Episode Detection And Therapy Details ATR IDCO Episode Identifier ATR-403 IDCO Episode Date Time [id number] IDCO Episode Type Category AT/AF IDCO Episode Vendor Type Category ATR IDCO Episode Detection Interval Atrial 287 ms IDCO Episode Duration 32 s IDCO Episode Detection And Therapy Details ATR IDCO Episode Identifier ATR-402 IDCO Episode Date Time [id number] IDCO Episode Type Category AT/AF IDCO Episode Vendor Type Category ATR IDCO Episode Detection Interval Atrial 223 ms IDCO Episode Duration 21,861 s IDCO Episode Detection And Therapy Details ATR IDCO Episode Statistic Type Category VF IDCO Episode Statistic Vendor Type Category VF IDCO Episode Statistic Recent Count 0 IDCO Episode Statistic Recent Date Time Start 20190921 IDCO Episode Statistic Recent Date Time End 20191112 IDCO Episode Statistic Type Category VT IDCO Episode Statistic Vendor Type Category VT IDCO Episode Statistic Recent Count 0 IDCO Episode Statistic Recent Date Time Start 20190921 IDCO Episode Statistic Recent Date Time End 20191112 IDCO Episode Statistic Type Category VT IDCO Episode Statistic Vendor Type Category VT-1 IDCO Episode Statistic Recent Count 1 IDCO Episode Statistic Recent Date Time Start 20190921 IDCO Episode Statistic Recent Date Time End 20191112 IDCO Episode Statistic Type Category Monitor IDCO Episode Statistic Vendor Type Category IDCO Episode Statistic Recent Count 0 IDCO Episode Statistic Recent Date Time Start 20190921 IDCO Episode Statistic Recent Date Time End 20191112 IDCO Episode Statistic Type Category Other IDCO Episode Statistic Vendor Type Category IDCO Episode Statistic Recent Count 8 IDCO Episode Statistic Recent Date Time Start 20190921 IDCO Episode Statistic Recent Date Time End 20191112 IDCO Episode Statistic Type Category VT IDCO Episode Statistic Vendor Type Category NSVT IDCO Episode Statistic Recent Count 159 IDCO Episode Statistic Recent Date Time Start 20190921 IDCO Episode Statistic Recent Date Time End 20191112 IDCO Episode Statistic Type Category AT/AF IDCO Episode Statistic Vendor Type Category ATR IDCO Episode Statistic Recent Count 120 IDCO Episode Statistic Recent Date Time Start 20190921 IDCO Episode Statistic Recent Date Time End 20191112 IDCO Albaro Setting AT Mode Switch Mode [...] E162 IDCO Implantable Pulse Generator Serial Number [id number] IDCO Implantable Pulse Generator Strawberry Grower [place] Scientific IDCO Implantable Pulse Generator Implant Date 20140110 IDCO Implantable Lead Model 4136 IDCO Implantable Lead Serial Number [id number] IDCO Implantable Lead Strawberry Grower Guidant IDCO Implantable Lead Implant Date 20130421 IDCO Implantable Lead Polarity Type Bipolar Lead IDCO Implantable Lead Location Right Atrium IDCO Implantable Lead Model 0292 IDCO Implantable Lead Serial Number [id number] IDCO Implantable Lead Strawberry Grower [place] Scientific IDCO Implantable Lead Implant Date IDCO Implantable Lead Location Right Ventricle IDCO Lead Channel Measurements Date and Time Start 20190921 IDCO Lead Channel Measurements Date and Time End 20191111 IDCO Lead Channel Sensing Intrinsic Amplitude Mean 4.2 mV IDCO Lead Channel Sensing Polarity Bipolar IDCO Lead Channel Pacing Threshold Amplitude 0.7 V IDCO Lead Channel Pacing Threshold Pulse Width 0.5 ms IDCO Lead Channel Pacing Threshold Measurement Method Milk Tanker Driver Manual IDCO Lead Channel Pacing Threshold Polarity Bipolar IDCO Lead Channel Impedance Value 707 ohms IDCO Lead Channel Impedance Polarity Bipolar IDCO Lead Channel Measurements Date and Time Start 20190921 IDCO Lead Channel Measurements Date and Time End 20191111 IDCO Lead Channel Sensing Intrinsic Amplitude Mean 15.7 mV IDCO Lead Channel Sensing Polarity Bipolar IDCO Lead Channel Pacing Threshold Amplitude 0.6 V IDCO Lead Channel Pacing Threshold Pulse Width 0.5 ms IDCO Lead Channel Pacing Threshold Measurement Method Milk Tanker Driver Manual IDCO Lead Channel Pacing Threshold Polarity Bipolar IDCO Lead Channel Impedance Value 730 ohms IDCO Lead Channel Impedance Polarity Bipolar IDCO Lead High Voltage Channel Date Time 20191111 IDCO Lead High Voltage Channel Impedance 98 ohms IDCO Lead High Voltage Channel Measurement Type Low Voltage Pulse IDCO Statistic Date Time Start 20190921 IDCO Statistic Date Time End 20191112 IDCO Albaro Statistic Date Time Start 20190921 IDCO Albaro Statistic Date Time End 20191112 IDCO Albaro Statistic RA Percent Paced 0 % IDCO Albaro Statistic RV Percent Paced 4 % IDCO Therapy Statistic Recent Date Time Start 20190921 IDCO Therapy Statistic Recent Date Time End 20191112 IDCO Therapy Statistic Recent Shocks Delivered 0 IDCO Therapy Statistic Total Date Time Start 20140110 IDCO Therapy Statistic Total Date Time End 20191112 IDCO Therapy Statistic Total Shocks Delivered 2 IDCO Therapy Statistic Recent Shocks Aborted 0 IDCO Therapy Statistic Total Shocks Aborted 0 IDCO Therapy Statistic Recent ATP Delivered 1 IDCO Therapy Statistic Total ATP Delivered 2 IDCO Anatomical Region Laterality Modality Other 11/12/2019 12:4 3 AM EDT Physician Cardiology IMPLANTABLE CARD IAC DEVICE documented in this encounter Visit Diagnoses Not on filedocumented in this encounter Care Teams Fire Extinguisher Installer Relationship Specialty Start Date End Date Dewayne Carrington MD [address] [place] [address] PCP - General 09/02/16 documented as of this encounter
--- OUTSIDE RECORDS SUMMARY | 2023-11-03 01:24 | XMS_ITS | Encounter Summary ---
Author Organization [facility] Address [facility] [place] [address] Care Team Providers Care Communications Planner Name Role Phone Dewayne Carrington MD Primary Care Provider [phone] Encounter Details Date Type Department Care Team (Late st Contact Info) Description 11/23/2019 Telephone Dermatology at [facility] [address] [place] [address] Irena Miranda MD [facility] [address] [place] [address] Social History Tobacco Use Types Packs/Day Years [...] encounter Miscellaneous Notes * Telephone Encounter - Emelyn Diaz - 11/23/2019 9:02 AM EDT I called Mr. Hendrix to schedule his 3 month Rash f/u. documented in this encounter Plan of Treatment Upcoming Encounters Date Type Department Care Team (Late st Contact Info) Description 12/18/2023 10:00 AM EDT Hospital Encounter Non-[place] [address] Arrived documented as of this encounter Visit Diagnoses Not on filedocumented in this encounter Care Teams Communications Planner Relationship Specialty Start Date End Date Dewayne Carrington MD [address] [place] [address] PCP - General 09/02/16 documented as of this encounter
--- OUTSIDE RECORDS SUMMARY | 2023-11-03 01:24 | XMS_ITS | Encounter Summary ---
[place] [address] Care Team Providers Care Fabric Lay Out Worker Name Role Phone Dewayne Carrington MD Primary Care Provider Reason for Visit * Reason Onset Date Comments Prior Authorization 12/05/2019 tacrolimus ( PROTOPIC) 0.1 % Ointment Encounter Details Date Type Department Care Team (Late st Contact Info) Description 12/05/2019 Telephone Dermatology at [facility] [address] [place] [address] [place] CMA Prior Authorization (tacrolimus (PROTOPIC) 0.1 % Ointment ) Social History Tobacco Use Types Packs/Day Years [...] encounter Miscellaneous Notes * Telephone Encounter - W[place] Tinajero MA - 12/05/2019 10:47 AM EDT Images from the original note were not included. Medication Prior Authorization for Primary Care Approved: Tacrolimus 0.1% ointment Start Date: 12/05/2019 End Date: 04/19/2020 Case/Reference #: [id number] See Approval Letter in scanned documents. 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, 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 Prior medications trialed in this patient: Medication: triamcinolone Approx Dates: Outcome/Adverse Reactions: inadequate response Medication: zinc oxide cream Approx Dates: 05/2013- Outcome/Adverse Reactions: inadequate response Medication: fluocinonide cream Approx Dates: 04/2013-05/2013 Outcome/Adverse Reactions: inadequate response Additional Notes: documented in this encounter Plan of Treatment Upcoming Encounters Date Type Department Care Team (Late st Contact Info) Description 12/18/2023 10:00 AM EDT Hospital Encounter Non-Invasive [place] [address] Arrived documented as of this encounter Visit Diagnoses Not on filedocumented in this encounter Care Teams Fabric Lay Out Worker Relationship Specialty Start Date End Date Dewayne Carrington MD [address] [place] [address] [place] [address] PCP - General 09/02/16 documented as of this encounter
--- OUTSIDE RECORDS SUMMARY | 2023-11-03 01:24 | XMS_ITS | Encounter Summary ---
Author Organization [facility] Address [facility] [place] [address] Care Team Providers Care Beverage Distiller Name Role Phone Dewayne Carrington MD Primary Care Provider [phone] Encounter Details Date Type Department Care Team (Late st Contact Info) Description 11/17/2019 Telephone Dermatology at [facility] [address] [place] [address] Irena Miranda MD [facility] [address] [place] [address] Social History Tobacco Use Types Packs/Day Years [...] * Telephone Encounter - Emelyn Diaz - 11/17/2019 3:40 PM EDT Called Mr. Hendrix to scheduled a 3 month follow up LSC with Dr. Miranda * Telephone Encounter - Emelyn Diaz - 11/17/2019 3:40 PM EDT follow up LSC documented in this encounter Plan of Treatment Upcoming Encounters Date Type Department Care Team (Late st Contact Info) Description 12/18/2023 10:00 AM EDT Hospital Encounter Non-[place] [address] Arrived documented as of this encounter Visit Diagnoses Not on filedocumented in this encounter Care Teams Beverage Distiller Relationship Specialty Start Date End Date Dewayne Carrington MD [address] [place] [address] PCP - General 09/02/16 documented as of this encounter
--- OUTSIDE RECORDS SUMMARY | 2023-11-03 01:24 | XMS_ITS | Encounter Summary ---
Author Organization [facility] Address [facility] [place] [address] Care Team Providers Care Laboratory Worker Name Role Phone Dewayne Carrington MD Primary Care Provider [phone] Encounter Details Date Type Department Care Team ([facility] st Contact Info) Description 12/06/2019 Telephone Cardiology at [address] [id number] Chante Robertson RN Social History Tobacco Use [...] Telephone Encounter - Chante Robertson RN - 12/06/2019 8:07 AM EDT I left a message on his self identified answering machine that an alert from his ICD showed he wentinto Afib again on Dec 03 for 8.8 hours and continued into it at 1900 Dec 04. Avg V-rates at 70 bpm with some elevations 130-150's.I asked he call if he was having symptoms or if he would like to send another transmission to see if he continues in the rhythm. I will pass this along to Dr Zabala documented in this encounter Plan of Treatment Upcoming Encounters Date Type Department Care Team (Late st Contact Info) Description 12/18/2023 10:00 AM EDT Hospital Encounter [place] [address] Arrived documented as of this encounter Visit Diagnoses Not on filedocumented in this encounter Care Teams Laboratory Worker Relationship Specialty Start Date End Date Dewayne Carrington MD [facility] [place] [place] [address] PCP - General 09/02/16 documented as of this encounter
--- OUTSIDE RECORDS SUMMARY | 2023-11-03 01:24 | XMS_ITS | Encounter Summary ---
Author Organization [facility] [place] [address] Care Team Providers Care Solids Control Technician Name Role Phone Dewayne Carrington MD Primary Care Provider [phone] Encounter Details Date Type Department Care Team (Late st Contact Info) Description 06/21/2019 Telephone Cardiology at [address] [phone] Chante Robertson RN Social History Tobacco Use [...] Telephone Encounter - Chante Robertson RN - 06/21/2019 2:39 PM EST I called and let him know that his remote yesterday evening showed he was no longer in Afib. documented in this encounter Plan of Treatment Upcoming Encounters Date Type Department Care Team (Late st Contact Info) Description 12/18/2023 10:00 AM EDT Hospital Encounter Non-[place] [address] Arrived documented as of this encounter Visit Diagnoses Not on filedocumented in this encounter Care Teams Solids Control Technician Relationship Specialty Start Date End Date Dewayne Carrington MD [address] [place] [address] PCP - General 09/02/16 documented as of this encounter
--- OUTSIDE RECORDS SUMMARY | 2023-11-03 01:24 | XMS_ITS | Encounter Summary ---
[place] [address] Care Team Providers Care Study Director Name Role Phone Dewayne Carrington MD Primary Care Provider [phone] Encounter Details Date Type Department Care Team (Late st Contact Info) Description 09/30/2019 Orders Only Cardiology at [address] [address] Social History Tobacco Use Types Packs/Day Years [...] AM EDT Hospital Encounter Non[place] [address] Arrived documented as of this encounter Procedures Procedure Name Priority Date/Time Associated Diagnosis Comments CARDIAC DEVICE CHECK - REMOTE DEVICE INITIATED Routine 09/30/2019 12:41 AM EDT documented in this encounter Results * Cardiac device check - Remote Device Initiated (09/30/2019 12:41 AM EDT) Date Time Interrogation Session [id number] IDCO Type Interrogation Session Remote Device Initiated IDCO Clinic Name [facility] IDCO Battery Date Time of Measurements [id number] IDCO Battery Status Beginning of Service IDCO Battery Remaining Longevity 60 mo IDCO Battery Remaining Percentage 71 % IDCO Capacitor Last Charge Date Time IDCO Capacitor Charge Time 10.9 s IDCO Capacitor Charge Type Reformation IDCO Capacitor Last Charge Date Time IDCO Capacitor Charge Time 3.8 s IDCO Capacitor Charge Energy 21 J IDCO Capacitor Charge Type Shock IDCO Episode Identifier [id number] IDCO Episode Date Time IDCO Episode Type Category Periodic EGM IDCO Episode Vendor Type Category APMRT IDCO Episode Detection And Therapy Details Presenting EGM IDCO Episode Identifier [id number] IDCO Episode Date Time IDCO Episode Type Category AT/AF IDCO Episode Vendor Type Category ATR IDCO Episode Detection Interval Atrial 263 ms IDCO Episode Duration 101,628 s IDCO Episode Detection And Therapy Details ATR IDCO Episode Identifier [id number] IDCO Episode Date Time IDCO Episode Type Category Other IDCO Episode Vendor Type Category XANDER IDCO Episode Detection Interval Ventricular 923 ms IDCO Episode Duration 56 s IDCO Episode Detection And Therapy Details IDCO Episode Identifier [id number] IDCO Episode Date Time IDCO Episode Type Category Other IDCO Episode Vendor Type Category XANDER IDCO Episode Detection Interval Ventricular 1,053 ms IDCO Episode Duration 59 s IDCO Episode Detection And Therapy Details IDCO Episode Identifier [id number] IDCO Episode Date Time IDCO Episode Type Category Other IDCO Episode Vendor Type Category XANDER IDCO Episode Detection Interval Ventricular 1,000 ms IDCO Episode Duration 58 s IDCO Episode Detection And Therapy Details IDCO Episode Identifier [id number] IDCO Episode Date Time [id number] IDCO Episode Type Category Other IDCO Episode Vendor Type Category XANDER IDCO Episode Detection Interval Ventricular 1,000 ms IDCO Episode Duration 60 s IDCO Episode Detection And Therapy Details IDCO Episode Identifier [id number] IDCO Episode Date Time IDCO Episode Type Category Other IDCO Episode Vendor Type Category XANDER IDCO Episode Detection Interval Ventricular 1,091 ms IDCO Episode Duration 59 s IDCO Episode Detection And Therapy Details Q IDCO Episode Identifier [id number] IDCO Episode Date Time IDCO Episode Type Category Other IDCO Episode Vendor Type Category XANDER IDCO Episode Detection Interval Ventricular 968 ms IDCO Episode Duration 58 s IDCO Episode Detection And Therapy Details IDCO Episode Identifier [id number] IDCO Episode Date Time IDCO Episode Type Category Other IDCO Episode Vendor Type Category XANDER IDCO Episode Detection Interval Ventricular 938 ms IDCO Episode Duration 53 s IDCO Episode Detection And Therapy Details IDCO Episode Identifier [id number] IDCO Episode Date Time IDCO Episode Type Category Other IDCO Episode Vendor Type Category XANDER IDCO Episode Detection Interval Ventricular 923 ms IDCO Episode Duration 53 s IDCO Episode Detection And Therapy Details IDCO Episode Identifier [id number] IDCO Episode Date Time IDCO Episode Type Category Other IDCO Episode Vendor Type Category XANDER IDCO Episode Detection Interval Ventricular 923 ms IDCO Episode Duration 54 s IDCO Episode Detection And Therapy Details IDCO Episode Identifier [id number] IDCO Episode Date Time IDCO Episode Type Category Other IDCO Episode Vendor Type Category XANDER IDCO Episode Detection Interval Ventricular 923 ms IDCO Episode Duration 53 s IDCO Episode Detection And Therapy Details IDCO Episode Identifier [id number] IDCO Episode Date Time IDCO Episode Type Category AT/AF IDCO Episode Vendor Type Category ATR IDCO Episode Detection Interval Atrial 273 ms IDCO Episode Duration 40,831 s IDCO Episode Detection And Therapy Details ATR IDCO Episode Statistic Type Category VF IDCO Episode Statistic Vendor Type Category VF IDCO Episode Statistic Recent Count 0 IDCO Episode Statistic Recent Date Time Start 20190921 IDCO Episode Statistic Recent Date Time End 20190930 IDCO Episode Statistic Type Category VT IDCO Episode Statistic Vendor Type Category VT IDCO Episode Statistic Recent Count 0 IDCO Episode Statistic Recent Date Time Start 20190921 IDCO Episode Statistic Recent Date Time End 20190930 IDCO Episode Statistic Type Category VT IDCO Episode Statistic Vendor Type Category VT-1 IDCO Episode Statistic Recent Count 0 IDCO Episode Statistic Recent Date Time Start 20190921 IDCO Episode Statistic Recent Date Time End 20190930 IDCO Episode Statistic Type Category Monitor IDCO Episode Statistic Vendor Type Category IDCO Episode Statistic Recent Count 0 IDCO Episode Statistic Recent Date Time Start 20190921 IDCO Episode Statistic Recent Date Time End 20190930 IDCO Episode Statistic Type Category Other IDCO Episode Statistic Vendor Type Category IDCO Episode Statistic Recent Count 0 IDCO Episode Statistic Recent Date Time Start 20190921 IDCO Episode Statistic Recent Date Time End 20190930 IDCO Episode Statistic Type Category VT IDCO Episode Statistic Vendor Type Category NSVT IDCO Episode Statistic Recent Count 0 IDCO Episode Statistic Recent Date Time Start 20190921 IDCO Episode Statistic Recent Date Time End 20190930 IDCO Episode Statistic Type Category AT/AF IDCO Episode Statistic Vendor Type Category ATR IDCO Episode Statistic Recent Count 2 IDCO Episode Statistic Recent Date Time Start 20190921 IDCO Episode Statistic Recent Date Time End 20190930 IDCO Albaro Setting AT Mode Switch Mode [...] E162 IDCO Implantable Pulse Generator Serial Number [id number] IDCO Implantable Pulse Generator Social Media Senior Associate [employer] IDCO Implantable Pulse Generator Implant Date 20140110 IDCO Implantable Lead Model 4136 IDCO Implantable Lead Serial Number [id number] IDCO Implantable Lead Social Media Senior Associate Guidant IDCO Implantable Lead Implant Date 20130421 IDCO Implantable Lead Polarity Type Bipolar Lead IDCO Implantable Lead Location Right Atrium IDCO Implantable Lead Model 0292 IDCO Implantable Lead Serial Number [id number] IDCO Implantable Lead Social Media Senior Associate [employer] IDCO Implantable Lead Implant Date IDCO Implantable Lead Location Right Ventricle IDCO Lead Channel Measurements Date and Time Start 20190921 IDCO Lead Channel Measurements Date and Time End 20190929 IDCO Lead Channel Sensing Intrinsic Amplitude Mean 4.4 mV IDCO Lead Channel Sensing Polarity Bipolar IDCO Lead Channel Pacing Threshold Amplitude 0.7 V IDCO Lead Channel Pacing Threshold Pulse Width 0.5 ms IDCO Lead Channel Pacing Threshold Measurement Method Bulk Materials Handling Plant Operator Manual IDCO Lead Channel Pacing Threshold Polarity Bipolar IDCO Lead Channel Impedance Value 740 ohms IDCO Lead Channel Impedance Polarity Bipolar IDCO Lead Channel Measurements Date and Time Start 20190921 IDCO Lead Channel Measurements Date and Time End 20190929 IDCO Lead Channel Sensing Intrinsic Amplitude Mean 14.9 mV IDCO Lead Channel Sensing Polarity Bipolar IDCO Lead Channel Pacing Threshold Amplitude 0.6 V IDCO Lead Channel Pacing Threshold Pulse Width 0.5 ms IDCO Lead Channel Pacing Threshold Measurement Method Bulk Materials Handling Plant Operator Manual IDCO Lead Channel Pacing Threshold Polarity Bipolar IDCO Lead Channel Impedance Value 705 ohms IDCO Lead Channel Impedance Polarity Bipolar IDCO Lead High Voltage Channel Date Time 20190929 IDCO Lead High Voltage Channel Impedance 100 ohms IDCO Lead High Voltage Channel Measurement Type Low Voltage Pulse IDCO Statistic Date Time Start 20190921 IDCO Statistic Date Time End 20190930 IDCO Albaro Statistic Date Time Start 20190921 IDCO Albaro Statistic Date Time End 20190930 IDCO Albaro Statistic RA Percent Paced 1 % IDCO Albaro Statistic RV Percent Paced 10 % IDCO Therapy Statistic Recent Date Time Start 20190921 IDCO Therapy Statistic Recent Date Time End 20190930 IDCO Therapy Statistic Recent Shocks Delivered 0 IDCO Therapy Statistic Total Date Time Start 20140110 IDCO Therapy Statistic Total Date Time End 20190930 IDCO Therapy Statistic Total Shocks Delivered 2 IDCO Therapy Statistic Recent Shocks Aborted 0 IDCO Therapy Statistic Total Shocks Aborted 0 IDCO Therapy Statistic Recent ATP Delivered 0 IDCO Therapy Statistic Total ATP Delivered 1 IDCO Anatomical Region Laterality Modality Other 09/30/2019 12:4 1 AM EDT Physician Cardiology IMPLANTABLE CARD IAC DEVICE documented in this encounter Visit Diagnoses Not on filedocumented in this encounter Care Teams Study Director Relationship Specialty Start Date End Date Dewayne Carrington MD [facility] [place] [address] PCP - General 09/02/16 documented as of this encounter
--- OUTSIDE RECORDS SUMMARY | 2023-11-03 01:24 | XMS_ITS | Encounter Summary ---
Author Organization [facility] Address [facility] [place] [address] Care Team Providers Care Buggy Loader Name Role Phone Dewayne Carrington MD Primary Care Provider [phone] Encounter Details Date Type Department Care Team ([facility] st Contact Info) Description 12/06/2019 Telephone Cardiology at [address] [phone] Chante Robertson RN Social History Tobacco Use [...] Encounter - Chante Robertson RN - 12/06/2019 12:54 PM EDT He returned my call regarding Afib he was in since dec 03 and ongoing at 0054 this am. He told me he was out for a 40 min walk yesterday and it felt herder then usual-His B/P has been stable at 126/77. He felt he might be in afib but has no acute symptoms. I asked he send another transmission if hewuld like to know if he has converted and I will relay the results to Dr Zabala.- The remote showedhe had converted. documented in this encounter Plan of Treatment Upcoming Encounters Date Type Department Care Team (Late st Contact Info) Description 12/18/2023 10:00 AM EDT Hospital Encounter Non-Invasive [place] [address] Arrived documented as of this encounter Visit Diagnoses Not on filedocumented in this encounter Care Teams Buggy Loader Relationship Specialty Start Date End Date Dewayne Carrington MD [address] [place] [address] PCP - General 09/02/16 documented as of this encounter
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
--- OUTSIDE RECORDS SUMMARY | 2023-11-03 01:25 | XMS_ITS | Encounter Summary ---
Author Organization [facility] [place] [address] Care Team Providers Care Florist Helper Name Role Phone Dewayne Carrington MD Primary Care Provider [phone] Encounter Details Date Type Department Care Team (Late st Contact Info) Description 06/17/2019 Telephone Cardiology at [address] [phone] Chante Robertson RN Social History Tobacco Use [...] Telephone Encounter - Chante Robertson RN - 06/17/2019 8:52 AM EST I called to let him know I received an alert from his remote monitor that he was back in AF/AFL for>24 hours V rates averaged in 80's. I told him I was pass this along to his railroad brakeman and he should call if he has any questions or symptoms. documented in this encounter Plan of Treatment Upcoming Encounters Date Type Department Care Team (Late st Contact Info) Description 12/18/2023 10:00 AM EDT Hospital Encounter Non[place] [address] Arrived documented as of this encounter Visit Diagnoses Not on filedocumented in this encounter Care Teams Florist Helper Relationship Specialty Start Date End Date Dewayne Carrington MD [address] [place] [address] PCP - General 09/02/16 documented as of this encounter
--- OUTSIDE RECORDS SUMMARY | 2023-11-03 01:25 | XMS_ITS | Encounter Summary ---
[place] [address] Care Team Providers Care Carpet Cutter Name Role Phone Dewayne Carrington MD Primary Care Provider [phone] Encounter Details Date Type Department Care Team (Late st Contact Info) Description 06/17/2019 Orders Only Cardiology at [address] [address] Social History Tobacco Use Types Packs/Day Years [...] AM EDT Hospital Encounter [place] [address] Arrived documented as of this encounter Procedures Procedure Name Priority Date/Time Associated Diagnosis Comments CARDIAC DEVICE CHECK - REMOTE DEVICE INITIATED Routine 06/17/2019 12:42 AM EST documented in this encounter Results * Cardiac device check - Remote Device Initiated (06/17/2019 12:42 AM EST) Date Time Interrogation Session [id number] IDCO Type Interrogation Session Remote Device Initiated IDCO Clinic Name [facility] IDCO Battery Date Time of Measurements [id number] IDCO Battery Status Beginning of Service IDCO Battery Remaining Longevity 66 mo IDCO Battery Remaining Percentage 81 % IDCO Capacitor Last Charge Date Time [id number] IDCO Capacitor Charge Time 10.8 s IDCO Capacitor Charge Type Reformation IDCO Capacitor Last Charge Date Time [id number] IDCO Capacitor Charge Time 3.8 s IDCO Capacitor Charge Energy 21 J IDCO Capacitor Charge Type Shock IDCO Episode Identifier APM-37 IDCO Episode Date Time IDCO Episode Type Category Periodic EGM IDCO Episode Vendor Type Category APMRT IDCO Episode Detection And Therapy Details Presenting EGM IDCO Episode Identifier [id number] IDCO Episode Date Time IDCO Episode Type Category AT/AF IDCO Episode Vendor Type Category ATR IDCO Episode Detection Interval Atrial 271 ms IDCO Episode Duration 104 s IDCO Episode Detection And Therapy Details ATR IDCO Episode Identifier [id number] IDCO Episode Date Time [id number] IDCO Episode Type Category AT/AF IDCO Episode Vendor Type Category ATR IDCO Episode Detection Interval Atrial 258 ms IDCO Episode Duration 90,751 s IDCO Episode Detection And Therapy Details ATR IDCO Episode Identifier [id number] IDCO Episode Date Time [id number] IDCO Episode Type Category Other IDCO Episode Vendor Type Category XANDER IDCO Episode Detection Interval Ventricular 968 ms IDCO Episode Duration 57 s IDCO Episode Detection And Therapy Details IDCO Episode Identifier [id number] IDCO Episode Date Time [id number] IDCO Episode Type Category Other IDCO Episode Vendor Type Category XANDER IDCO Episode Detection Interval Ventricular 909 ms IDCO Episode Duration 55 s IDCO Episode Detection And Therapy Details [facility] IDCO Episode Identifier [id number] IDCO Episode Date Time [id number] IDCO Episode Type Category Other IDCO Episode Vendor Type Category XANDER IDCO Episode Detection Interval Ventricular 923 ms IDCO Episode Duration 56 s IDCO Episode Detection And Therapy Details [facility] IDCO Episode Identifier [id number] IDCO Episode Date Time [id number] IDCO Episode Type Category Other IDCO Episode Vendor Type Category XANDER IDCO Episode Detection Interval Ventricular 952 ms IDCO Episode Duration 56 s IDCO Episode Detection And Therapy Details COQ IDCO Episode Identifier [id number] IDCO Episode Date Time [id number] IDCO Episode Type Category Other IDCO Episode Vendor Type Category XANDER IDCO Episode Detection Interval Ventricular 938 ms IDCO Episode Duration 58 s IDCO Episode Detection And Therapy Details Q IDCO Episode Identifier [id number] IDCO Episode Date Time [id number] IDCO Episode Type Category Other IDCO Episode Vendor Type Category XANDER IDCO Episode Detection Interval Ventricular 1,017 ms IDCO Episode Duration 56 s IDCO Episode Detection And Therapy Details IDCO Episode Identifier [id number] IDCO Episode Date Time [id number] IDCO Episode Type Category Other IDCO Episode Vendor Type Category XANDER IDCO Episode Detection Interval Ventricular 938 ms IDCO Episode Duration 55 s IDCO Episode Detection And Therapy Details IDCO Episode Identifier [id number] IDCO Episode Date Time [id number] IDCO Episode Type Category Other IDCO Episode Vendor Type Category XANDER IDCO Episode Detection Interval Ventricular 984 ms IDCO Episode Duration 57 s IDCO Episode Detection And Therapy Details CO IDCO Episode Identifier [id number] IDCO Episode Date Time [id number] IDCO Episode Type Category Other IDCO Episode Vendor Type Category XANDER IDCO Episode Detection Interval Ventricular 952 ms IDCO Episode Duration 57 s IDCO Episode Detection And Therapy Details IDCO Episode Identifier [id number] IDCO Episode Date Time [id number] IDCO Episode Type Category Other IDCO Episode Vendor Type Category XANDER IDCO Episode Detection Interval Ventricular 1,071 ms IDCO Episode Duration 57 s IDCO Episode Detection And Therapy Details Q IDCO Episode Identifier V IDCO Episode Date Time [id number] IDCO Episode Type Category VT IDCO Episode Vendor Type Category NSVT IDCO Episode Type Induced Flag NO IDCO Episode Detection Interval Ventricular 387 ms IDCO Episode Duration 6 s IDCO Episode Detection And Therapy Details NonSustV IDCO Episode Identifier V IDCO Episode Date Time [id number] IDCO Episode Type Category VT IDCO Episode Vendor Type Category NSVT IDCO Episode Type Induced Flag NO IDCO Episode Detection Interval Ventricular 373 ms IDCO Episode Duration 20 s IDCO Episode Detection And Therapy Details NonSustV IDCO Episode Identifier [id number] IDCO Episode Date Time IDCO Episode Type Category VT IDCO Episode Vendor Type Category NSVT IDCO Episode Type Induced Flag NO IDCO Episode Detection Interval Ventricular 403 ms IDCO Episode Duration 8 s IDCO Episode Detection And Therapy Details NonSustV IDCO Episode Identifier ATR-278 IDCO Episode Date Time IDCO Episode Type Category AT/AF IDCO Episode Vendor Type Category ATR IDCO Episode Detection Interval Atrial 165 ms IDCO Episode Duration 312,590 s IDCO Episode Detection And Therapy Details ATR IDCO Episode Statistic Type Category VF IDCO Episode Statistic Vendor Type Category VF IDCO Episode Statistic Recent Count 0 IDCO Episode Statistic Recent Date Time Start 20180408 IDCO Episode Statistic Recent Date Time End 20190617 IDCO Episode Statistic Type Category VT IDCO Episode Statistic Vendor Type Category VT IDCO Episode Statistic Recent Count 0 IDCO Episode Statistic Recent Date Time Start 20180408 IDCO Episode Statistic Recent Date Time End 20190617 IDCO Episode Statistic Type Category VT IDCO Episode Statistic Vendor Type Category VT-1 IDCO Episode Statistic Recent Count 0 IDCO Episode Statistic Recent Date Time Start 20180408 IDCO Episode Statistic Recent Date Time End 20190617 IDCO Episode Statistic Type Category Monitor IDCO Episode Statistic Vendor Type Category IDCO Episode Statistic Recent Count 0 IDCO Episode Statistic Recent Date Time Start 20180408 IDCO Episode Statistic Recent Date Time End 20190617 IDCO Episode Statistic Type Category Other IDCO Episode Statistic Vendor Type Category IDCO Episode Statistic Recent Count 0 IDCO Episode Statistic Recent Date Time Start 20180408 IDCO Episode Statistic Recent Date Time End 20190617 IDCO Episode Statistic Type Category VT IDCO Episode Statistic Vendor Type Category NSVT IDCO Episode Statistic Recent Count 293 IDCO Episode Statistic Recent Date Time Start 20180408 IDCO Episode Statistic Recent Date Time End 20190617 IDCO Episode Statistic Type Category AT/AF IDCO Episode Statistic Vendor Type Category ATR IDCO Episode Statistic Recent Count 86 IDCO Episode Statistic Recent Date Time Start 20180408 IDCO Episode Statistic Recent Date Time End 20190617 IDCO Albaro Setting AT Mode Switch Mode [...] E162 IDCO Implantable Pulse Generator Serial Number [id number] IDCO Implantable Pulse Generator Fine Arts Chair [place] Scientific IDCO Implantable Pulse Generator Implant Date 20140110 IDCO Implantable Lead Model 4136 IDCO Implantable Lead Serial Number [id number] IDCO Implantable Lead Fine Arts Chair Guiddelio IDCO Implantable Lead Implant Date 20130421 IDCO Implantable Lead Polarity Type Bipolar Lead IDCO Implantable Lead Location Right Atrium IDCO Implantable Lead Model 0292 IDCO Implantable Lead Serial Number [id number] IDCO Implantable Lead Fine Arts Chair [place] Scientific IDCO Implantable Lead Implant Date IDCO Implantable Lead Location Right Ventricle IDCO Lead Channel Measurements Date and Time Start 20180408 IDCO Lead Channel Measurements Date and Time End 20190616 IDCO Lead Channel Sensing Intrinsic Amplitude Mean 2.3 mV IDCO Lead Channel Sensing Polarity Bipolar IDCO Lead Channel Pacing Threshold Amplitude 0.7 V IDCO Lead Channel Pacing Threshold Pulse Width 0.5 ms IDCO Lead Channel Pacing Threshold Measurement Method Emr Trainer Manual IDCO Lead Channel Pacing Threshold Polarity Bipolar IDCO Lead Channel Impedance Value 682 ohms IDCO Lead Channel Impedance Polarity Bipolar IDCO Lead Channel Measurements Date and Time Start 20180408 IDCO Lead Channel Measurements Date and Time End 20190616 IDCO Lead Channel Sensing Intrinsic Amplitude Mean 22.0 mV IDCO Lead Channel Sensing Polarity Bipolar IDCO Lead Channel Pacing Threshold Amplitude 0.7 V IDCO Lead Channel Pacing Threshold Pulse Width 0.5 ms IDCO Lead Channel Pacing Threshold Measurement Method Emr Trainer Manual IDCO Lead Channel Pacing Threshold Polarity Bipolar IDCO Lead Channel Impedance Value 677 ohms IDCO Lead Channel Impedance Polarity Bipolar IDCO Lead High Voltage Channel Date Time 20190616 IDCO Lead High Voltage Channel Impedance 96 ohms IDCO Lead High Voltage Channel Measurement Type Low Voltage Pulse IDCO Statistic Date Time Start 20180408 IDCO Statistic Date Time End 20190617 IDCO Albaro Statistic Date Time Start 20180408 IDCO Albaro Statistic Date Time End 20190617 IDCO Albaro Statistic RA Percent Paced 1 % IDCO Albaro Statistic RV Percent Paced 3 % IDCO Therapy Statistic Recent Date Time Start 20180408 IDCO Therapy Statistic Recent Date Time End 20190617 IDCO Therapy Statistic Recent Shocks Delivered 0 IDCO Therapy Statistic Total Date Time Start 20140110 IDCO Therapy Statistic Total Date Time End 20190617 IDCO Therapy Statistic Total Shocks Delivered 2 IDCO Therapy Statistic Recent Shocks Aborted 0 IDCO Therapy Statistic Total Shocks Aborted 0 IDCO Therapy Statistic Recent ATP Delivered 0 IDCO Therapy Statistic Total ATP Delivered 1 IDCO Anatomical Region Laterality Modality Other 06/17/2019 12:4 2 AM EST Physician Cardiology IMPLANTABLE CARD IAC DEVICE documented in this encounter Visit Diagnoses Not on filedocumented in this encounter Care Teams Carpet Cutter Relationship Specialty Start Date End Date Dewayne Carrington MD [address] [place] [address] PCP - General 09/02/16 documented as of this encounter
--- OUTSIDE RECORDS SUMMARY | 2023-11-03 01:25 | XMS_ITS | Encounter Summary ---
Author Organization [facility] Address [facility] [address] Care Team Providers Care Aeronautics Teacher Name Role Phone Dewayne Carrington MD Primary Care Provider [phone] Encounter Details Date Type Department Care Team ([facility] st Contact Info) Description 06/20/2019 Telephone Cardiology at [address] [id number] Chante Robertson RN Social History Tobacco Use [...] Telephone Encounter - Chante Robertson RN - 06/20/2019 4:59 PM EST I called him back as I left a message Jun 17, 2019 that he had been in Afib for 21.8 hours continuously. He said that he had not felt well on 06/16/19 his B/P was a little lower and he felt sweaty. He remarked the last time he had an extended episode was Apr 29-he had sustained it for 87 hours. He plans to send an updated transmission to see if he has converted documented in this encounter Plan of Treatment Upcoming Encounters Date Type Department Care Team (Late st Contact Info) Description 12/18/2023 10:00 AM EDT Hospital Encounter [place] [address] Arrived documented as of this encounter Visit Diagnoses Not on filedocumented in this encounter Care Teams Aeronautics Teacher Relationship Specialty Start Date End Date Dewayne Carrington MD [facility] [phone] PCP - General 09/02/16 documented as of this encounter
--- OUTSIDE RECORDS SUMMARY | 2023-11-03 01:25 | XMS_ITS | Encounter Summary ---
Author Organization [facility] Address [facility] [place] [address] Care Team Providers Care Welding Machine Operator Gas Name Role Phone Dewayne Carrington MD Primary Care Provider [phone] Reason for Visit * Reason Comments Follow-up Right wrist pain discuss xrays and US results left wrist painful as well Encounter Details Date Type Department Care Team (Late st Contact Info) Description 12/22/2018 2:30 PM EDT Office Visit [place] [address] Scarlett Vasquez MD [facility] [address] [place] [address] Pain in left wrist; Pain in right wrist Social History Tobacco Use Types Packs/Day Years [...] Sign Reading Time Taken Comments Blood Pressure 102/62 12/22/2018 2:23 PM EDT Pulse 67 12/22/2018 2:23 PM EDT Temperature - - Respiratory Rate - - Oxygen Saturation - - Inhaled Oxygen Concentration - - Weight 90.7 kg (200 lb) 12/22/2018 2:23 PM EDT r eported Height 185.4 cm (6' 1) 12/22/2018 2:23 PM EDT r eported Body Mass Index 26.39 12/22/2018 2:23 PM EDT documented in this encounter Progress Notes * Sherman Cates - 12/22/2018 2:30 PM EDT Orthopaedic Office Note Attending: Dr. Vasquez Chief Complaint: Bilateral wrist pain History of Present Illness: Marquez Hendrix is a 68 y.o. male who comes in today for follow up of his bilateral wrist pain. Patient seen previously in the clinic approximately 3 months ago and referred to rheumatology for further evaluation there. The yeast tender did not find a clear explanation for the patient's symptoms and have asked him to return here for further evaluation. On the right wrist, the patient reports that he still has pain that is greatest at the volar and ulnar aspect of his wrist. To review, this initially started after a minimally displaced distal radius fracture in 2018. This pain waxes and wanes but can be 8 out of 10 in severity. Is worse with certain positions and activities but these are not necessarily reproducible. Numbness is not a predominant symptom here, but he does report that he occasionally wakes up with numbness in the hand at night but this does not bother him otherwise and resolves with a change in position. At the left wrist, the patient's pain is greatest over the radial aspect of the wrist. This also waxes and wanes without a clear trigger although it can be activity dependent. This has bothered him for years but was not associated witha specific injury. Past Medical History: Patient Active Problem List Diagnosis Code ??? 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 Diabetes mellitus E11.9 ??? HTN (hypertension) I10 ??? Elevated cholesterol E78.00 ??? IBS (irritable bowel syndrome) K58.9 ??? T2DM (type 2 diabetes mellitus) E11.9 ??? Esophageal reflux K21.9 ??? Irritant contact dermatitis L24.9 ??? Dermatitis L30.9 ??? Depression F32.9 ??? Sustained VT (ventricular tachycardia) I47.2 ??? Hypertension I10 ??? Hypomagnesemia E83.42 ??? 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 Atrial pacemaker lead displacement T82.120A ??? Typical atrial flutter I48.3 ??? Pain in right wrist M25.531 Past Surgical History: Past Surgical History: Procedure Laterality Date ??? PRO UPPER GI ENDOSCOPY, BIOPSY 12/17/2011 EGD WITH BIOPSY performed by KYRA VYAS at [facility] ENDOSCOPY Allergies: Allergies Allergen Reactions ??? Latex ??? Tape 1X5yd [Adhesive Tape] Rash tegaderm ok Use paper tape Medications: ??? vortioxetine (BRINTELLIX) 10 mg Tablet ??? metoprolol succinate (TOPROL-XL) 100 mg Tablet Sustained Release 24 hr ??? FREESTYLE LITE STRIPS ??? CHOLECALCIFEROL, VITAMIN D3, 2,000 unit Capsule ??? lamoTRIgine (LAMICTAL) 200 mg Tablet ??? aspirin 81 mg Tablet, Delayed Release (E.C.) ??? rivaroxaban (XARELTO) 20 mg Tablet ??? glipiZIDE (GLUCOTROL) 5 mg Tablet ??? MAGNESIUM CARBONATE ORAL ??? pantoprazole (PROTONIX) 40 mg Tablet, Delayed Release (E.C.) ??? liraglutide (VICTOZA) 0.6 mg/0.1 mL (18 mg/3 mL) Pen Injector ??? atorvastatin (LIPITOR) 80 mg Tablet ??? traMADol (ULTRAM) 50 mg Tablet ??? lisinopril (PRINIVIL;ZESTRIL) 20 mg Tablet ??? zolpidem (AMBIEN) 10 mg tablet ??? multivitamin capsule ??? LANCETS MISC ??? alprazolam (XANAX XR) 3 mg 24 hr tablet ??? metformin (GLUCOPHAGE) 1,000 mg tablet ??? BD ULTRA-FINE MINI PEN NEEDLE 31 gauge x 3/16 Needle ??? metoprolol succinate (TOPROL-XL) 25 mg Tablet Sustained Release 24 hr ??? CALCIUM CARBONATE/VITAMIN D3 (VITAMIN D-3 ORAL) ??? nitroGLYcerin (NITROSTAT) 0.4 mg SL tablet Social History: Social History Socioeconomic History ??? Marital status: Spouse name: Not on file ??? Number of children: Not on file ??? Years of education: Not on file ??? Highest education level: Not on file Occupational History ??? Not on file Social Needs ??? Financial resource strain: Not on file ??? Food insecurity: Worry: Not on file Inability: Not on file ??? Transportation needs: Medical: Not on file Non-medical: Not on file Tobacco Use ??? Smoking status: Former Smoker Packs/day: 0.75 Years: 25.00 Pack years: 18.75 Types: Cigarettes, e-Cigarettes Last attempt to quit: 12/19/2013 Years since quittin.0 ??? Smokeless tobacco: Never Used ??? Tobacco comment: using e cigarettes Substance and Sexual Activity ??? Alcohol use: No ??? Drug use: No ??? Sexual activity: Not on file Lifestyle ??? Physical activity: Days per week: Not on file Minutes per session: Not on file ??? Stress: Not on file Relationships ??? Social connections: Talks on phone: Not on file Gets together: Not on file Attends scientologist service: Not on file Active member of club or organization: Not on file Attends meetings of clubs or organizations: Not on file Relationship status: Not on file ??? Intimate partner violence: Fear of current or ex partner: Not on file Emotionally abused: Not on file Physically abused: Not on file Forced sexual activity: Not on file Other Topics Concern ??? Not on file Social History Narrative ??? Not on file Review of Systems: As above Objective: Temp: -- Heart Rate: [67] Resp: -- BP: (102)/(62) SpO2: -- Heart Rate from SpO2: -- GENERAL: Well appearing, NAD, awake, alert, appropriately answers questions HEENT- Normocephalic, atraumatic CV- RRR checked peripherally PULM- No increased work of breathing Skin- Intact Psych- Nl mood and affect Right upper extremity-visible bogginess over the volar and ulnar aspect of the wrist. Tenderness to palpation over the ulnar aspect of the wrist and FCU tendon. Tenderness is also present but less so over the dorsum of the ulnar side of the wrist. Symmetric range of motion in comparison to the left. Pain at the DRUJ with extremes of supination. Resisted wrist extension is 5 out of 5 in strength but painful over the ulnar aspect of the wrist. Resisted wrist flexion is 5 out of 5 strength and nonpainful. 5 out of 5 strength with finger flexion, extension interosseous function. Sensation intact light touch in the median, radian, ulnar distribution of the hand. Hand warm well perfused, palpable radial pulse. Left upper extremity-no visible abnormality about the hand or wrist with exception of mild ecchymosis over the dorsum of the hand related to recent intravenous catheter. Tenderness to palpation about the radial aspect of the wrist and thumb. Mild pain with grind test. Full and symmetric range of motion about the wrist. 5 out of 5 strength with wrist flexion, wrist extension, finger flexion, finger extension, finger abduction. Sensation intact light touch in the median, radian, ulnar distributions. Warm and well-perfused hand. Imaging: X-ray imaging of the left hand was reviewed in the office today. This is been newly obtained since his last visit. 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 No significant CMC arthritis at the base of the thumb. Assessment/Plan: 68 y.o. 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 There is no significant instability on exam today and his symptoms are not specific to a TFCC tear. However, he does have bogginess and tenderness over the ulnar aspect of his wrist andit is possible this could be related to intra- articular pathology. Interestingly, the patient previously had an intra-articular injection without significant relief at our office. At this point, we recommend a repeat intra- articular injection under fluoroscopy to see if there provides him with significant relief. If so, he may be a good candidate for wrist arthroscopy for further evaluation of his TFCC to see if this may be symptomatic. Alternatively, the patient has significant bogginess and tenderness over the flexor carpi ulnaris about his wrist and all thesymptoms may be explained by tendinitis. Unfortunately, the patient is unable to undergo MRI imaging and is difficult to understand exactly what is going on with the soft tissues. The patient did have a musculoskeletal ultrasound with rheumatology which did not demonstrate abnormality, despite the visible swelling on exam today. In terms of the left wrist, the patient does have evidence of degenerative changes at the STT joint. If this to bother him significantly, he could undergo a fluoroscopic injection of this location. It was become quite severe he could have an operative procedure to remove the arthritic joint. He indicated he is not interested in further intervention for this issue atthis time as the pain is usually mild and flares only occasionally. At this point, we will be in touch with the patient's orthopedist closer to home in [place] to see if he can help schedule an intra-articular right wrist injection. We are happy to see the patient back here if the wrist injection does provide him with significant relief but ultimately wears off, as a wrist arthroscopy mayprove helpful to him. If he does not receive improvement with the wrist injection, we have recommended symptom management and intermittent splinting as necessary to treat the presumed soft tissue inflammation. We will see patient back on an as-needed basis. No additional imaging is needed at the time. * Scarlett Vasquez MD - 12/22/2018 2:30 PM EDT I examined Marquez Hendrix and I agree with Dr. Cates's note. SCARLETT VASQUEZ MD documented in this encounter Plan of Treatment Upcoming Encounters Date Type Department Care Team (Late st Contact Info) Description 12/18/2023 10:00 AM EDT Hospital Encounter [place] [address] Arrived documented as of this encounter Visit Diagnoses Diagnosis Pain in left wrist Pain in joint, forearm Pain in right wrist Pain in joint, forearm documented in this encounter Care Teams Welding Machine Operator Gas Relationship Specialty Start Date End Date [place] [address] PCP - General 09/02/16 documented as of this encounter
--- OUTSIDE RECORDS SUMMARY | 2023-11-03 01:25 | XMS_ITS | Encounter Summary ---
Author Organization [facility] Address [facility] [place] [address] Care Team Providers Care Shopper'S Aide Name Role Phone Dewayne Carrington MD Primary Care Provider [phone] Reason for Visit * Reason Comments Wound Care * Consultation (Routine) - Specialty Diagnoses / Procedures Referred By Contac t Referred To Contact Wound Care Diagnoses Pressure ulcer of unspecified buttock, unspecified stage PRESSURE ULCER, BUTTOCK Dewayne Carrington MD [address] [place] [id number] [facility] [place] [address] Referral ID Status Reason Start Date Expiration Date V isits Requested Visits Authorized [id number] Consult, Test & Treat Connection [facility] 09/28/2018 12/29/2018 6 6 Encounter Details Date Type Department Care Team (Late st Contact Info) Description 12/22/2018 4:00 PM EDT Office [place] [address] Kisha Reeves APRN [facility] [place] [address] Pressure injury of right buttock, stage 1 Social History Tobacco Use Types Packs/Day Years [...] this encounter Patient Instructions * Patient Instructions* Kisha Reeves APRN - 12/22/2018 4:00 PM EDT Skin care instructions: Mepilex Border sacrum dressing-nursing to change every 3 days and as needed for dressing with 50% or greater strike though drainage. : 1. Cleanse wound with dermal wound cleanser and gauze. 2. Apply Mepilex Border dressing High Protein foods: Beef, chicken, fish Beans, Lentils, peanut butter Sudanese and regular yogurt Cheese, eggs Boost, Ensure shakes Protein powder in a smoothie of your choice documented in this encounter Progress Notes * Kisha Reeves APRN - 12/22/2018 4:00 PM EDT Images from the original note were not included. [facility] Initial Consultation Note HPI: Marquez Hendrix is a 68 y.o. male referred by Dewayne Carrington MD for evaluation of a buttock wound. The patient has a 1 year history of a painful area of redness over my tailbone. He has a work history of sitting all day on a hard stool. He is now retired and active. He has tried zinc cream and gold ukmar cream without relief. He reports pain over the tailbone with sitting; he denies radiationto the back or down the leg. He has cycling shorts, which he states help the pain. He denies pain with cycling (road and gravel). He denies trauma to the area. The medical history and recent labs were reviewed prior to the patient's appointment. VNA: none Patient Active Problem List Diagnosis Code ??? [...] I48.3 ??? Pain in right wrist M25.531 Social History Socioeconomic History ??? Marital status: Spouse name: None ??? Number of children: None ??? Years of education: None ??? Highest education level: None Occupational History ??? None Social Needs ??? Financial resource strain: None ??? Food insecurity: Worry: None Inability: None ??? Transportation needs: Medical: None Non-medical: None Tobacco Use ??? Smoking status: Former Smoker Packs/day: 0.75 Years: 25.00 Pack years: 18.75 Types: Cigarettes, e-Cigarettes Last attempt to quit: 12/19/2013 Years since quittin.0 ??? Smokeless tobacco: Never Used ??? Tobacco comment: using e cigarettes Substance and Sexual Activity ??? Alcohol use: No ??? Drug use: No ??? Sexual activity: None Lifestyle ??? Physical activity: Days per week: None Minutes per session: None ??? Stress: None Relationships ??? Social connections: Talks on phone: None Gets together: None Attends latter-day service: None Active member of club or organization: None Attends meetings of clubs or organizations: None Relationship status: None ??? Intimate partner violence: Fear of current or ex partner: None Emotionally abused: None Physically abused: None Forced sexual activity: None Other Topics Concern ??? None Social History Narrative ??? None Employment: he is a former smoker, who now vapes 3% nicotine daily; he road and gravel bikes for exercise; he is and lives alone, near his daughter. 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 Diagnostics: ERIKA's: n/a Imaging: none pertinent Pertinent labs: reports his last A1C is 7.0 % in October 2018 Lab Results Component Value Date CREATININE 0.92 09/01/2018 Review Of Systems: Denies constitutional symptoms of fever, chills, sweats, fatigue. Neuro: denies ALCARAZ, dizziness - vestibular issues with ambulating, not riding his bicycle CV: Denies CP, SOB - (++) with A. Fib exacerbations, otherwise denies as baseline GI: denies N/V, diarrhea - can go 3 days without a stooling, then a plug, then diarrhea : Denies voiding issues Diet: appetite good, watches carbs Wound care: as above Leg fatigue, calf cramping, skin itching: denies Neuropathy: denies Pain: as noted above to coccyx, ischia PE: Vitals: There were no vitals taken for this visit. Estimated body mass index is 26.39 kg/m?? as calculated from the following: Height as of an earlier encounter on 12/22/18: 185.4 cm (6' 1). Weight as of an earlier encounter on 12/22/18: 90.7 kg (200 lb). General: pleasant, in NAD Mobility: independent Edema: none Periwound: [place], blanchable Wound bed:pink, blanchable Exudate:none Odor: none Blanchable erythema over the katherine cleft, no open areas Wound Location Measurements Tunneling/undermining Wound bed Tina wound skin Right ischium 1.0 x 1.0 cm area none Blanchable erythema [place], blanchable ?? PHOTOS taken today: buttocks Wound treatment: Wound Location: Cleansed wound with NS. Dressing: mepilex border sacrum Assessment/ Plan: Marquez Hendrix is a 68 y.o. male with a stage 1 pressure injury over the right buttock. The etiology is unknown because he is quite activie. He has tried treating it as a dermatitis with various creams without success. mepilex border sacrum for pressure redistribution and Gaymarcushion for pressure redistribution when sitting. He eats a high protein diet and his diabetes is fairly well controlled per his report of A1C. The patient verbalized understanding of and agreement with the plan. . Verbal and written wound care instructions were provided. The patient will call with any questions or concerns. Wound care supplies ordered via [facility]. - he will call if he likes the Mepilex border dressings so we can order Follow up: Weekly Instructions: Mepilex Border sacrum dressing-nursing to change every 3 days and as needed for dressing with 50% or greater strike though drainage. : 1. Cleanse wound with dermal wound cleanser and gauze. 2. Apply Mepilex Border dressing High Protein foods: Beef, chicken, fish Beans, Lentils, peanut butter Sudanese and regular yogurt Cheese, eggs Boost, Ensure shakes Protein powder in a smoothie of your choice Cc: Dewayne Carrington MD [address] [place] [address] PCP: Dewayne Carrington MD documented in this encounter Plan of Treatment Upcoming Encounters Date Type Department Care Team (Late st Contact Info) Description 12/18/2023 10:00 AM EDT Hospital Encounter Non-[place] [address] Arrived documented as of this encounter Visit Diagnoses Diagnosis Pressure injury of right buttock, stage 1 documented in this encounter Care Teams Shopper'S Aide Relationship Specialty Start Date End Date [place] [address] PCP - General 09/02/16 documented as of this encounter
--- OUTSIDE RECORDS SUMMARY | 2023-11-03 01:25 | XMS_ITS | Encounter Summary ---
[place] [address] Care Team Providers Care Client Leader Name Role Phone Dewayne Carrington MD Primary Care Provider [phone] Encounter Details Date Type Department Care Team (Late st Contact Info) Description 05/01/2019 Orders Only Cardiology at [address] [address] Social History Tobacco Use Types Packs/Day Years [...] AM EDT Hospital Encounter Non-[place] [address] Arrived documented as of this encounter Procedures Procedure Name Priority Date/Time Associated Diagnosis Comments CARDIAC DEVICE CHECK - REMOTE DEVICE INITIATED Routine 05/01/2019 12:41 AM EST documented in this encounter Results * Cardiac device check - Remote Device Initiated (05/01/2019 12:41 AM EST) Date Time Interrogation Session [id number] IDCO Type Interrogation Session Remote Device Initiated IDCO Clinic Name [facility] IDCO Battery Date Time of Measurements [id number] IDCO Battery Status Beginning of Service IDCO Battery Remaining Longevity 72 mo IDCO Battery Remaining Percentage 82 % IDCO Capacitor Last Charge Date Time IDCO Capacitor Charge Time 10.8 s IDCO Capacitor Charge Type Reformation IDCO Capacitor Last Charge Date Time IDCO Capacitor Charge Time 3.8 s IDCO Capacitor Charge Energy 21 J IDCO Capacitor Charge Type Shock IDCO Episode Identifier [id number] IDCO Episode Date Time IDCO Episode Type Category Periodic EGM IDCO Episode Vendor Type Category APMRT IDCO Episode Detection And Therapy Details Presenting EGM IDCO Episode Identifier IDCO Episode Date Time IDCO Episode Type Category VT IDCO Episode Vendor Type Category NSVT IDCO Episode Type Induced Flag NO IDCO Episode Detection Interval Ventricular 429 ms IDCO Episode Duration 20 s IDCO Episode Detection And Therapy Details NonSustV IDCO Episode Identifier IDCO Episode Date Time IDCO Episode Type Category VT IDCO Episode Vendor Type Category NSVT IDCO Episode Type Induced Flag NO IDCO Episode Detection Interval Ventricular 377 ms IDCO Episode Duration 16 s IDCO Episode Detection And Therapy Details NonSustV IDCO Episode Identifier IDCO Episode Date Time IDCO Episode Type Category VT IDCO Episode Vendor Type Category NSVT IDCO Episode Type Induced Flag NO IDCO Episode Detection Interval Ventricular 375 ms IDCO Episode Duration 5 s IDCO Episode Detection And Therapy Details NonSustV IDCO Episode Identifier IDCO Episode Date Time IDCO Episode Type Category VT IDCO Episode Vendor Type Category NSVT IDCO Episode Type Induced Flag NO IDCO Episode Detection Interval Ventricular 392 ms IDCO Episode Duration 5 s IDCO Episode Detection And Therapy Details NonSustV IDCO Episode Identifier IDCO Episode Date Time IDCO Episode Type Category VT IDCO Episode Vendor Type Category NSVT IDCO Episode Type Induced Flag NO IDCO Episode Detection Interval Ventricular 373 ms IDCO Episode Duration 14 s IDCO Episode Detection And Therapy Details NonSustV IDCO Episode Identifier IDCO Episode Date Time IDCO Episode Type Category VT IDCO Episode Vendor Type Category NSVT IDCO Episode Type Induced Flag NO IDCO Episode Detection Interval Ventricular 411 ms IDCO Episode Duration 5 s IDCO Episode Detection And Therapy Details NonSustV IDCO Episode Identifier [id number] IDCO Episode Date Time IDCO Episode Type Category VT IDCO Episode Vendor Type Category NSVT IDCO Episode Type Induced Flag NO IDCO Episode Detection Interval Ventricular 382 ms IDCO Episode Duration 28 s IDCO Episode Detection And Therapy Details NonSustV IDCO Episode Identifier [id number] IDCO Episode Date Time IDCO Episode Type Category VT IDCO Episode Vendor Type Category NSVT IDCO Episode Type Induced Flag NO IDCO Episode Detection Interval Ventricular 382 ms IDCO Episode Duration 59 s IDCO Episode Detection And Therapy Details NonSustV IDCO Episode Identifier [id number] IDCO Episode Date Time IDCO Episode Type Category VT IDCO Episode Vendor Type Category NSVT IDCO Episode Type Induced Flag NO IDCO Episode Detection Interval Ventricular 361 ms IDCO Episode Duration 15 s IDCO Episode Detection And Therapy Details NonSustV IDCO Episode Identifier V IDCO Episode Date Time IDCO Episode Type Category VT IDCO Episode Vendor Type Category NSVT IDCO Episode Type Induced Flag NO IDCO Episode Detection Interval Ventricular 451 ms IDCO Episode Duration 34 s IDCO Episode Detection And Therapy Details NonSustV IDCO Episode Identifier ATR-275 IDCO Episode Date Time IDCO Episode Type Category AT/AF IDCO Episode Vendor Type Category ATR IDCO Episode Detection Interval Atrial 238 ms IDCO Episode Detection And Therapy Details ATR IDCO Episode Identifier ATR-274 IDCO Episode Date Time IDCO Episode Type Category AT/AF IDCO Episode Vendor Type Category ATR IDCO Episode Detection Interval Atrial 331 ms IDCO Episode Duration 23 s IDCO Episode Detection And Therapy Details ATR IDCO Episode Identifier ATR-273 IDCO Episode Date Time IDCO Episode Type Category AT/AF IDCO Episode Vendor Type Category ATR IDCO Episode Detection Interval Atrial 274 ms IDCO Episode Duration 125 s IDCO Episode Detection And Therapy Details ATR IDCO Episode Identifier [id number] IDCO Episode Date Time IDCO Episode Type Category Other IDCO Episode Vendor Type Category XANDER IDCO Episode Detection Interval Ventricular 909 ms IDCO Episode Duration 54 s IDCO Episode Detection And Therapy Details Q IDCO Episode Identifier [id number] IDCO Episode Date Time IDCO Episode Type Category Other IDCO Episode Vendor Type Category XANDER IDCO Episode Detection Interval Ventricular 909 ms IDCO Episode Duration 53 s IDCO Episode Detection And Therapy Details Q IDCO Episode Identifier [id number] IDCO Episode Date Time IDCO Episode Type Category Other IDCO Episode Vendor Type Category XANDER IDCO Episode Detection Interval Ventricular 909 ms IDCO Episode Duration 55 s IDCO Episode Detection And Therapy Details Q IDCO Episode Identifier [id number] IDCO Episode Date Time IDCO Episode Type Category Other IDCO Episode Vendor Type Category XANDER IDCO Episode Detection Interval Ventricular 909 ms IDCO Episode Duration 53 s IDCO Episode Detection And Therapy Details IDCO Episode Identifier [id number] IDCO Episode Date Time IDCO Episode Type Category Other IDCO Episode Vendor Type Category XANDER IDCO Episode Detection Interval Ventricular 923 ms IDCO Episode Duration 53 s IDCO Episode Detection And Therapy Details Q IDCO Episode Identifier [id number] IDCO Episode Date Time IDCO Episode Type Category Other IDCO Episode Vendor Type Category XANDER IDCO Episode Detection Interval Ventricular 984 ms IDCO Episode Duration 57 s IDCO Episode Detection And Therapy Details IDCO Episode Identifier [id number] IDCO Episode Date Time IDCO Episode Type Category Other IDCO Episode Vendor Type Category XANDER IDCO Episode Detection Interval Ventricular 1,034 ms IDCO Episode Duration 61 s IDCO Episode Detection And Therapy Details IDCO Episode Identifier [id number] IDCO Episode Date Time IDCO Episode Type Category Other IDCO Episode Vendor Type Category XANDER IDCO Episode Detection Interval Ventricular 968 ms IDCO Episode Duration 109 s IDCO Episode Detection And Therapy Details Q IDCO Episode Identifier [id number] IDCO Episode Date Time IDCO Episode Type Category Other IDCO Episode Vendor Type Category XANDER IDCO Episode Detection Interval Ventricular 952 ms IDCO Episode Duration 55 s IDCO Episode Detection And Therapy Details [id number] Episode Date Time [id number] IDCO Episode Type Category Other IDCO Episode Vendor Type Category XANDER IDCO Episode Detection Interval Ventricular 923 ms IDCO Episode Duration 56 s IDCO Episode Detection And Therapy Details [facility] IDCO Episode Identifier ATR-272 IDCO Episode Date Time [id number] IDCO Episode Type Category AT/AF IDCO Episode Vendor Type Category ATR IDCO Episode Detection Interval Atrial 247 ms IDCO Episode Duration 39 s IDCO Episode Detection And Therapy Details ATR IDCO Episode Identifier ATR-271 IDCO Episode Date Time [id number] IDCO Episode Type Category AT/AF IDCO Episode Vendor Type Category ATR IDCO Episode Detection Interval Atrial 870 ms IDCO Episode Duration 3 s IDCO Episode Detection And Therapy Details ATR IDCO Episode Identifier ATR-270 IDCO Episode Date Time [id number] IDCO Episode Type Category AT/AF IDCO Episode Vendor Type Category ATR IDCO Episode Detection Interval Atrial 230 ms IDCO Episode Duration 34,096 s IDCO Episode Detection And Therapy Details ATR IDCO Episode Identifier ATR-269 IDCO Episode Date Time [id number] IDCO Episode Type Category AT/AF IDCO Episode Vendor Type Category ATR IDCO Episode Detection Interval Atrial 232 ms IDCO Episode Duration 16 s IDCO Episode Detection And Therapy Details ATR IDCO Episode Identifier ATR-268 IDCO Episode Date Time [id number] IDCO Episode Type Category AT/AF IDCO Episode Vendor Type Category ATR IDCO Episode Detection Interval Atrial 241 ms IDCO Episode Duration 24,555 s IDCO Episode Detection And Therapy Details ATR IDCO Episode Identifier ATR-267 IDCO Episode Date Time [id number] IDCO Episode Type Category AT/AF IDCO Episode Vendor Type Category ATR IDCO Episode Detection Interval Atrial 496 ms IDCO Episode Duration 4 s IDCO Episode Detection And Therapy Details ATR IDCO Episode Identifier ATR-266 IDCO Episode Date Time [id number] IDCO Episode Type Category AT/AF IDCO Episode Vendor Type Category ATR IDCO Episode Detection Interval Atrial 273 ms IDCO Episode Duration 73 s IDCO Episode Detection And Therapy Details ATR IDCO Episode Identifier ATR-265 IDCO Episode Date Time [id number] IDCO Episode Type Category AT/AF IDCO Episode Vendor Type Category ATR IDCO Episode Detection Interval Atrial 264 ms IDCO Episode Duration 17 s IDCO Episode Detection And Therapy Details ATR IDCO Episode Statistic Type Category VF IDCO Episode Statistic Vendor Type Category VF IDCO Episode Statistic Recent Count 0 IDCO Episode Statistic Recent Date Time Start [id number] IDCO Episode Statistic Recent Date Time End 20190501 IDCO Episode Statistic Type Category VT IDCO Episode Statistic Vendor Type Category VT IDCO Episode Statistic Recent Count 0 IDCO Episode Statistic Recent Date Time Start [id number] IDCO Episode Statistic Recent Date Time End 20190501 IDCO Episode Statistic Type Category VT IDCO Episode Statistic Vendor Type Category VT-1 IDCO Episode Statistic Recent Count 0 IDCO Episode Statistic Recent Date Time Start 20180408 IDCO Episode Statistic Recent Date Time End 20190501 IDCO Episode Statistic Type Category Monitor IDCO Episode Statistic Vendor Type Category IDCO Episode Statistic Recent Count 0 IDCO Episode Statistic Recent Date Time Start 20180408 IDCO Episode Statistic Recent Date Time End 20190501 IDCO Episode Statistic Type Category Other IDCO Episode Statistic Vendor Type Category IDCO Episode Statistic Recent Count 0 IDCO Episode Statistic Recent Date Time Start 20180408 IDCO Episode Statistic Recent Date Time End 20190501 IDCO Episode Statistic Type Category VT IDCO Episode Statistic Vendor Type Category NSVT IDCO Episode Statistic Recent Count 289 IDCO Episode Statistic Recent Date Time Start 20180408 IDCO Episode Statistic Recent Date Time End 20190501 IDCO Episode Statistic Type Category AT/AF IDCO Episode Statistic Vendor Type Category ATR IDCO Episode Statistic Recent Count 81 IDCO Episode Statistic Recent Date Time Start 20180408 IDCO Episode Statistic Recent Date Time End 20190501 IDCO Albaro Setting AT Mode Switch Mode [...] E162 IDCO Implantable Pulse Generator Serial Number [id number] IDCO Implantable Pulse Generator 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 [place] [employer] IDCO Implantable Pulse Generator Implant Date 20140110 IDCO Implantable Lead Model 4136 IDCO Implantable Lead Serial Number [id number] IDCO Implantable Lead 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 Guidant IDCO Implantable Lead Implant Date 20130421 IDCO Implantable Lead Polarity Type Bipolar Lead IDCO Implantable Lead Location Right Atrium IDCO Implantable Lead Model 0292 IDCO Implantable Lead Serial Number [id number] IDCO Implantable Lead 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 [place] [employer] IDCO Implantable Lead Implant Date IDCO Implantable Lead Location Right Ventricle IDCO Lead Channel Measurements Date and Time Start 20180408 IDCO Lead Channel Measurements Date and Time End 20190430 IDCO Lead Channel Sensing Intrinsic Amplitude Mean 3.1 mV IDCO Lead Channel Sensing Polarity Bipolar IDCO Lead Channel Pacing Threshold Amplitude 0.7 V IDCO Lead Channel Pacing Threshold Pulse Width 0.5 ms IDCO Lead Channel Pacing Threshold Measurement Method Product Support Consultant Manual IDCO Lead Channel Pacing Threshold Polarity Bipolar IDCO Lead Channel Impedance Value 693 ohms IDCO Lead Channel Impedance Polarity Bipolar IDCO Lead Channel Measurements Date and Time Start 20180408 IDCO Lead Channel Measurements Date and Time End 20190430 IDCO Lead Channel Sensing Intrinsic Amplitude Mean 13.0 mV IDCO Lead Channel Sensing Polarity Bipolar IDCO Lead Channel Pacing Threshold Amplitude 0.7 V IDCO Lead Channel Pacing Threshold Pulse Width 0.5 ms IDCO Lead Channel Pacing Threshold Measurement Method Product Support Consultant Manual IDCO Lead Channel Pacing Threshold Polarity Bipolar IDCO Lead Channel Impedance Value 679 ohms IDCO Lead Channel Impedance Polarity Bipolar IDCO Lead High Voltage Channel Date Time 20190430 IDCO Lead High Voltage Channel Impedance 100 ohms IDCO Lead High Voltage Channel Measurement Type Low Voltage Pulse IDCO Statistic Date Time Start 20180408 IDCO Statistic Date Time End 20190501 IDCO Albaro Statistic Date Time Start 20180408 IDCO Albaro Statistic Date Time End 20190501 IDCO Albaro Statistic RA Percent Paced 2 % IDCO Albaro Statistic RV Percent Paced 2 % IDCO Therapy Statistic Recent Date Time Start 20180408 IDCO Therapy Statistic Recent Date Time End 20190501 IDCO Therapy Statistic Recent Shocks Delivered 0 IDCO Therapy Statistic Total Date Time Start 20140110 IDCO Therapy Statistic Total Date Time End 20190501 IDCO Therapy Statistic Total Shocks Delivered 2 IDCO Therapy Statistic Recent Shocks Aborted 0 IDCO Therapy Statistic Total Shocks Aborted 0 IDCO Therapy Statistic Recent ATP Delivered 0 IDCO Therapy Statistic Total ATP Delivered 1 IDCO Anatomical Region Laterality Modality Other 05/01/2019 12:4 1 AM EST Physician Cardiology IMPLANTABLE CARD IAC DEVICE documented in this encounter Visit Diagnoses Not on filedocumented in this encounter Care Teams Client Leader Relationship Specialty Start Date End Date Dewayne Carrington MD [address] [place] [address] [place] [address] PCP - General 09/02/16 documented as of this encounter
--- OUTSIDE RECORDS SUMMARY | 2023-11-03 01:25 | XMS_ITS | Encounter Summary ---
Author Organization [facility] Address [facility] [place] [address] Care Team Providers Care Cloth Dyer Name Role Phone Dewayne Carrington MD Primary Care Provider [phone] Reason for Visit * Reason Comments Right Wrist Pain Encounter Details Date Type Department Care Team (Late st Contact Info) Description 07/14/2018 3:30 PM EDT [place] [address] Honorio Vasquez MD [facility] [place] [address] Pain in right wrist Social History Tobacco [...] Sign Reading Time Taken Comments Blood Pressure - - Pulse - - Temperature - - Respiratory Rate - - Oxygen Saturation - - Inhaled Oxygen Concentration - - Weight 92.5 kg (204 lb) 07/14/2018 3:21 PM EDT s taed Height 185.4 cm (6' 1) 07/14/2018 3:21 PM EDT s taed Body Mass Index 26.91 07/14/2018 3:21 PM EDT documented in this encounter Progress Notes * Honorio Vasquez MD - 07/14/2018 3:30 PM EDT Marquez Hendrix returns for evaluation of right wrist pain. He has had pain since a nondisplaced extra-articular fracture of his right distal radius which occurred in April 2017. 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 He has not had an MRI because of the fact that he has a automatic defibrillator and its not clear if this is MRI compatible. When I last seen him I noted that both ofhis wrists were swollen and boggy I recommended that some blood testing be done to evaluate for potential inflammatory arthropathy. He did not have these done at the last visit. He reports that his pain is chiefly over the ulnar side of his wrist in the popping and grinding onthe side of the wrist. Pain is not always present but it is present on a daily basis and certain motions like circumduction of the wrist and radial ulnar deviation can exacerbate the pain. Examination reveals that his right hand is sensate and well perfused. He is generalized dorsal bogginess but it does not appear to be consistent with extensor tenosynovitis. He is tender to palpationover his distal ulna, over his ECU tendon, and over his triquetrum. He has no DRUJ nor TFCC instability but some of these maneuvers to stress the TFCC, LT interval, and DRUJ do exacerbate some of hispain. His Sampson test is negative. He has no evidence of midcarpal instability. His last x-rays were done over 6 months ago and showed a healed distal radius fracture with anatomic alignment. I did tell him I am uncertain as the source of the source of his pain. He did have a transient painimprovement with the lidocaine portion of his wrist injection but I did at the time of his last visit with me. This gave him no improvement of pain from steroid. I am not confident that his pain is intra- articular. I have recommended that he have labs done today and he is willing to do so. 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 If it is I would like to schedule an MRI of his right wrist. I will call him next week to discuss the results of his blood tests with him. Addendum: His SONAL did come back positive. We will make a referral for him to be seen by rheumatology. A left of phone message on his home answering machine to discuss this. documented in this encounter Plan of Treatment Upcoming Encounters Date Type Department Care Team (Late st Contact Info) Description 12/18/2023 10:00 AM EDT Hospital Encounter Non-[place] [address] Arrived documented as of this encounter Procedures Procedure Name Priority Date/Time Associated Diagnosis Comments CRP, ACUTE INFLAMMATION Routine 07/14/2018 4:16 PM EDT Pain in right wrist ANTI-CYCLIC CITRULLINATED PEPTIDE AB Routine 07/14/2018 4:16 PM EDT Pain in right wrist DNA ANTIBODY (DOUBLE-STRANDED) Routine 07/14/2018 4:16 PM EDT HEMOGRAM Routine 07/14/2018 4:16 PM EDT Pain in right wrist DIFFERENTIAL, AUTOMATED Routine 07/14/2018 4:16 PM EDT Pain in right wrist CBC (WITH DIFF) Routine 07/14/2018 4:16 PM EDT Pain in right wrist SONAL ANTIBODY SCREEN Routine 07/14/2018 4 :16 PM EDT Pain in right wrist documented in this encounter Results * DNA Antibody (Double-Stranded) (07/14/2018 4:16 PM EDT) DNA Ab (DS) Neg Neg [facility] Blood specimen (specimen) 07/14/2018 4:16 PM EDT 07/15/2018 8:03 AM EDT Narrative Resulting Agency Comment Spec In Lab Honorio Vasquez MD CHEMISTRY ORDERABLES [facility] [place] [address] * (ABNORMAL) Differential, Automated (07/14/2018 4:16 PM EDT) Neutrophils % 54.5 % [facility] Neutr Abs (ANC) 4.06 1.70 - 6.10 x10(3)/[facility] Lymphocytes % 29.8 % [facility] Lymphocytes Abs 2.2 0.9 - 3.2 x10(3)/[facility] Monocytes % 6.2 % [facility] Monocyte Abs 0.5 0.3 - 0.9 x10(3)/[facility] Eosinophils % 8.5 % [facility] Eosinophils Abs 0.6(H) 0.0 - 0.4 x10(3)/[facility] Basophils % 0.7 % [facility] Basophils Abs 0.0 0.0 - 0.1 x10(3)/[facility] Immature Gran % 0.30 % [facility] Comment: Immature granulocytes(IG's)percentage and absolute count will include metamyelocytes, myelocytes, and promyelocytes. Blood smears from CBCs yielding IG's will be scanned manually for concordance. If this scan disagrees with the automated IG or if promyelocytes are noted, a manual differential will be performed. Elyssa Gran Abs 0.02 0.00 - 0.04 x10(3)/[facility] Blood specimen (specimen) 07/14/2018 4:16 PM EDT 07/14/2018 4:30 PM EDT Narrative Resulting Agency Comment Spec In Lab Honorio Vasquez MD HEMATOLOGY ORDERABLE S [facility] [place] [address] * (ABNORMAL) Hemogram (07/14/2018 4:16 PM EDT) WBC 7.4 4.0 - 9.5 x10(3)/[facility] RBC 5.02 4.58 - 5.54 x10(6)/[facility] Hemoglobin 12.3(L) 13.7 - 16.5 gm/dL [facility] Hematocrit 40.1(L) 40.5 - 48.5 % [facility] MCV 79.9(L) 82.9 - 93.1 [facility] MCH 24.5(L) 27.5 - 32.1 pg [facility] MCHC 30.7(L) 32.0 - 35.7 gm/dL [facility] Platelets 240 145 - 357 x10(3)/[facility] RDWSD 45.3(H) 36.0 - 45.0 [facility] RDWCV 15.7(H) 11.4 - 13.8 % [facility] MPV 9.4 7.6 - 12.9 [facility] nRBC % Auto 0.0 % [facility] nRBC Abs Auto 0.000 0.000 - 0.000 x10(3)/[facility] Blood specimen (specimen) 07/14/2018 4:16 PM EDT 07/14/2018 4:30 PM EDT Narrative Resulting Agency Comment Spec In Lab Honorio Vasquez MD HEMATOLOGY ORDERABLE S Performing Organization Address City/State/[facility] Co de Phone Number [facility] [place] [address] * (ABNORMAL) SONAL (LEB/CGP) (07/14/2018 4:16 PM EDT) SONAL Pos at 1:80(A) Neg [facility] Comment: Titer seen with Speckled pattern. ??Is suggestive of autoantibodies to Sm, CONCRETER, SCL-70, or SS-B. Blood specimen (specimen) 07/14/2018 4:16 PM EDT 07/15/2018 8:03 AM EDT Narrative Resulting Agency Comment Spec In Lab Honorio Vasquez MD IMMUNOLOGY ORDERABLE S Performing Organization Address [facility] Co de Phone Number [facility] [place] [address] * Cyclic Citrullinated Peptide (07/14/2018 4:16 PM EDT) Anti-Cyc Cit Peptide <0.5 <=4.9 unit/mL [facility] Comment: An updated CCP assay reagent was implemented 07/31/16. Please note the modified reference interval. Blood specimen (specimen) 07/14/2018 4:16 PM EDT 07/14/2018 4:30 PM EDT Narrative Resulting Agency Comment Spec In Lab Honorio Vasquez MD CHEMISTRY ORDERABLES Performing Organization Address [facility] Co de Phone Number [facility] [place] [address] * CRP, acute inflammation (07/14/2018 4:16 PM EDT) CRP 0.4 <=4.9 mg/L [facility] Blood specimen (specimen) 07/14/2018 4:16 PM EDT 07/14/2018 4:30 PM EDT Narrative Resulting Agency Comment Spec In Lab Honorio Vasquez MD CHEMISTRY ORDERABLES Performing Organization Address [facility] Co de Phone Number [facility] [place] [address] documented in this encounter Visit Diagnoses Diagnosis Pain in right wrist Pain in joint, forearm documented in this encounter Care Teams Cloth Dyer Relationship Specialty Start Date End Date Dewyane Carrington MD [facility] [place] [id number] PCP - General 09/02/16 documented as of this encounter
--- OUTSIDE RECORDS SUMMARY | 2023-11-03 01:25 | XMS_ITS | Encounter Summary ---
Author Organization [facility] [place] [address] Care Team Providers Care Fairing Man Name Role Phone Dewayne Carrington MD Primary Care Provider [phone] Encounter Details Date Type Department Care Team (Late st Contact Info) Description 11/08/2018 11:08 AM EDT - 11/08/2018 11:59 PM EDT Hospital Encounter XRay at [address] [place] [address] Yamile Pimentel, [facility] [place] [address] Pain in left wrist Discharge Disposition: Home Social History Tobacco Use [...] Sig Dispensed Refills Start Date End Date BD ULTRA-FINE MINI PEN NEEDLE 31 gauge [...] 5 minutes as needed. Reported on 09/30/2016 vortioxetine (BRINTELLIX) 10 mg Tablet Take 15 [...] AM EDT Hospital Encounter Non-Invasive [place] [address] Arrived documented as of this encounter Procedures Procedure Name Priority Date/Time Associated Diagnosis Comments XR WRIST 3 VIEWS LEFT Routine 11/08/2018 11:21 AM EDT Pain in left wrist XR HAND MIN 3 VIEWS LEFT Routine 11/08/2018 11:21 AM EDT Pain in left wrist documented in this encounter Results * XR Wrist Complete Min 3 views Left (Generic) (11/08/2018 11:21 AM EDT) Anatomical Region Laterality Modality Left Digital Radiogra phy Impressions 11/08/2018 1:47 PM EDT 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 Thank you for letting us participate in the care of this patient. For questions regarding this report, please contact the number below. ? Electronically signed by: RAHEEL Vazquez [facility] ([phone]), at 11/08/2018 1:47 PM Narrative 11/08/2018 1:47 PM EDT EXAMINATION: XR WRIST COMPLETE MIN 3 VIEWS LEFT (GENERIC) CLINICAL HISTORY: pt with left wrist pain suspect oa pls assess TECHNIQUE: 3 views LEFT wrist COMPARISON: Three views left hand 11/08/2018. FINDINGS: There is marked narrowing of the triscaphe joint. There is a small osteophyte at the basilar joint of the thumb. These findings are consistent with osteoarthritis. No fracture or malalignment is seen. No erosions or soft tissue calcification. Bone density is normal. Procedure Note Derrell Lynn MD - 07/22/2019 EXAMINATION: XR WRIST COMPLETE MIN 3 VIEWS LEFT (GENERIC) CLINICAL HISTORY: pt with left wrist pain suspect oa pls assess TECHNIQUE: 3 views LEFT wrist COMPARISON: Three views left hand 11/08/2018. FINDINGS: There is marked narrowing of the triscaphe joint. There is a smallosteophyte at the basilar joint of the thumb. These findings are consistent with osteoarthritis. No fracture or malalignment is seen. No erosions or softtissue calcification. Bone density is normal. 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 Thank you for letting us participate in the care of this patient. Forquestions regarding this report, please contact the number below. Yamile Pimentel DO IMG DX ORDERABLES * XR Hand Min 3 views Left (Generic) (11/08/2018 11:21 AM EDT) Anatomical Region Laterality Modality Hand Left Digital Radiogra phy Impressions 11/08/2018 1:41 PM EDT Triscaphe joint osteoarthritis. Thank you for letting us participate in the care of this patient. For questions regarding this report, please contact the number below. ? Narrative 11/08/2018 1:41 PM EDT EXAMINATION: XR HAND MIN 3 VIEWS LEFT (GENERIC) CLINICAL HISTORY: pt with left hand/wrist pain and expect OA pls assess TECHNIQUE: 3 views LEFT hand COMPARISON: None FINDINGS: There is joint space narrowing with sclerosis at the triscaphe joint consistent with osteoarthritis. Mild degenerative changes present at the basilar joint of the thumb. No fracture or malalignment. No erosions or soft tissue calcification. Procedure Note Derrell Lynn MD - 11/08/2018 EXAMINATION: XR HAND MIN 3 VIEWS LEFT (GENERIC) CLINICAL HISTORY: pt with left hand/wrist pain and expect OA pls assess TECHNIQUE: 3 views LEFT hand COMPARISON: None FINDINGS: There is joint space narrowing with sclerosis at the triscaphe jointconsistent with osteoarthritis. Mild degenerative changes present at the basilarjoint of the thumb. No fracture or malalignment. No erosions or soft tissue calcification. IMPRESSION Triscaphe joint osteoarthritis. Thank you for letting us participate in the care of this patient. Forquestions regarding this report, please contact the number below. Electronically signed by: RAHEEL Vazquez [facility]([phone]), at 11/08/2018 1:41 PM Yamile Pimentel DO IMG DX ORDERABLES documented in this encounter Visit Diagnoses Diagnosis Pain in left wrist Pain in joint, forearm documented in this encounter Care Teams Fairing Man Relationship Specialty Start Date End Date Dewayne Carrington MD [address] [place] [address] PCP - General 09/02/16 documented as of this encounter
--- OUTSIDE RECORDS SUMMARY | 2023-11-03 01:25 | XMS_ITS | Encounter Summary ---
Author Organization [facility] [place] [address] Care Team Providers Care Police Sergeant Precinct Name Role Phone Dewayne Carrington MD Primary Care Provider [phone] Reason for Visit * Reason Onset Date Comments Other 05/02/2019 symptom update Encounter Details Date Type Department Care Team ([facility] st Contact Info) Description 05/02/2019 Telephone Cardiology at [address] [phone] Vickie Zarco, RN Other (symptom update ) Social History Tobacco Use Types Packs/Day [...] encounter Miscellaneous Notes * Telephone Encounter - Vickie Zarco, RN - 05/02/2019 1:38 PM EST Call to Pato regarding Chante's message below ,voice message left requesting a return call . Return call from Pato,states he is no longer followed by Dr Self as he now sees Dr Zabala [facility]. He has noted increased episodes of afib over this past week or so,ongoing headaches and fatigue . Recent increased emotional stress(family and work). States B/P has been lower than normal and heart rate 56-64. Taking fluids ok,instructed in importance of this. States he was recently assessed by his PCP,no changes were made. Instructed Pato to contact Dr Zabala' office in [place] today to discuss need for assessment,he is agreeable to this and will seek urgent /emergent care should his symptoms worsen/change . This RN will contact Pato tomorrow 05/03 ,making sure he was able to reach Cardiology in [facility]. Pato is agreeable to this ,appreciative our care. Forward to Dr Zabala as update. Update 05/03,call to Pato voice message left requesting a return call re: was he able to secure an office visit with Dr Zabala in [place]. Await return call. Return call from Pato,states he spoke with [place] yesterday and will be seeing Dr Zabala along with having an ECG. States he feels better this morning,no symptoms of afib today. Dr Zabala updated via in basket . ===View-only below this line=== ----- Message ----- From: Chante Robertson RN Sent: 05/02/2019 7:33 AM EST To: Kit Self MD, Vickie Zarco, NAHUN Subject: AF Hi Vickie and Dr Self His remote alerted for a 24 hour episode of AF Apr 30 at 1848 and ongoing -he had 21 hours Apr 29. He is on Xarelto but he had not had episodes in quite some time-rates got into the 150's during 04/30/2019 episode. Boone Sharif documented in this encounter Plan of Treatment Upcoming Encounters Date Type Department Care Team (Late st Contact Info) Description 12/18/2023 10:00 AM EDT Hospital Encounter Non[place] [address] Arrived documented as of this encounter Visit Diagnoses Not on filedocumented in this encounter Care Teams Police Sergeant Precinct Relationship Specialty Start Date End Date Dewayne Carrington [place] [address] PCP - General 09/02/16 documented as of this encounter
--- OUTSIDE RECORDS SUMMARY | 2023-11-03 01:25 | XMS_ITS | Encounter Summary ---
[place] [address] Care Team Providers Care Psychosocial Rehabilitation Counselor Name Role Phone Dewayne Carrington MD Primary Care Provider [phone] Encounter Details Date Type Department Care Team (Late st Contact Info) Description 01/13/2019 Orders Only Cardiology at [address] [phone] Social History Tobacco Use Types Packs/Day Years [...] AM EDT Hospital Encounter [place] [address] Arrived documented as of this encounter Procedures Procedure Name Priority Date/Time Associated Diagnosis Comments CARDIAC DEVICE CHECK - REMOTE PATIENT INITIATED Routine 01/13/2019 4:20 PM EDT documented in this encounter Results * Cardiac device check - Remote Patient Initiated (01/13/2019 4:20 PM EDT) Date Time Interrogation Session [id number] IDCO Type Interrogation Session Remote Patient Initiated IDCO Clinic Name [facility] IDCO Battery Date Time of Measurements [id number] IDCO Battery Status Beginning of Service IDCO Battery Remaining Longevity 78 mo IDCO Battery Remaining Percentage 92 % IDCO Capacitor Last Charge Date Time IDCO Capacitor Charge Time 10.8 s IDCO Capacitor Charge Type Reformation IDCO Capacitor Last Charge Date Time [id number] IDCO Capacitor Charge Time 3.8 s IDCO Capacitor Charge Energy 21 J IDCO Capacitor Charge Type Shock IDCO Episode Identifier [id number]-32 IDCO Episode Date Time [id number] IDCO Episode Type Category Periodic EGM IDCO Episode Vendor Type Category APMRT IDCO Episode Detection And Therapy Details Presenting EGM IDCO Episode Identifier [id number] IDCO Episode Date Time [id number] IDCO Episode Type Category Other IDCO Episode Vendor Type Category XANDER IDCO Episode Detection Interval Ventricular 938 ms IDCO Episode Duration 59 s IDCO Episode Detection And Therapy Details IDCO Episode Identifier [id number] IDCO Episode Date Time [id number] IDCO Episode Type Category Other IDCO Episode Vendor Type Category XANDER IDCO Episode Detection Interval Ventricular 1,017 ms IDCO Episode Duration 62 s IDCO Episode Detection And Therapy Details IDCO Episode Identifier [id number] IDCO Episode Date Time [id number] IDCO Episode Type Category Other IDCO Episode Vendor Type Category XANDER IDCO Episode Detection Interval Ventricular 1,053 ms IDCO Episode Duration 57 s IDCO Episode Detection And Therapy Details IDCO Episode Identifier [id number] IDCO Episode Date Time [id number] IDCO Episode Type Category Other IDCO Episode Vendor Type Category XANDER IDCO Episode Detection Interval Ventricular 968 ms IDCO Episode Duration 57 s IDCO Episode Detection And Therapy Details IDCO Episode Identifier [id number] IDCO Episode Date Time [id number] IDCO Episode Type Category Other IDCO Episode Vendor Type Category XANDER IDCO Episode Detection Interval Ventricular 923 ms IDCO Episode Duration 56 s IDCO Episode Detection And Therapy Details IDCO Episode Identifier [id number] IDCO Episode Date Time [id number] IDCO Episode Type Category Other IDCO Episode Vendor Type Category XANDER IDCO Episode Detection Interval Ventricular 968 ms IDCO Episode Duration 58 s IDCO Episode Detection And Therapy Details Q IDCO Episode Identifier [id number] IDCO Episode Date Time IDCO Episode Type Category Other IDCO Episode Vendor Type Category XANDER IDCO Episode Detection Interval Ventricular 1,034 ms IDCO Episode Duration 54 s IDCO Episode Detection And Therapy Details RYQ IDCO Episode Identifier [id number] ID[facility] Episode Date Time IDCO Episode Type Category Other IDCO Episode Vendor Type Category XANDER IDCO Episode Detection Interval Ventricular 952 ms IDCO Episode Duration 58 s IDCO Episode Detection And Therapy Details Q IDCO Episode Identifier [id number] IDCO Episode Date Time IDCO Episode Type Category Other IDCO Episode Vendor Type Category XANDER IDCO Episode Detection Interval Ventricular 1,000 ms IDCO Episode Duration 57 s IDCO Episode Detection And Therapy Details IDCO Episode Identifier [id number] IDCO Episode Date Time IDCO Episode Type Category Other IDCO Episode Vendor Type Category XANDER IDCO Episode Detection Interval Ventricular 1,034 ms IDCO Episode Duration 60 s IDCO Episode Detection And Therapy Details Q IDCO Episode Identifier IDCO Episode Date Time IDCO Episode Type Category VT IDCO Episode Vendor Type Category NSVT IDCO Episode Type Induced Flag NO IDCO Episode Detection Interval Ventricular 370 ms IDCO Episode Duration 6 s IDCO Episode Detection And Therapy Details NonSustV IDCO Episode Identifier IDCO Episode Date Time IDCO Episode Type Category VT IDCO Episode Vendor Type Category NSVT IDCO Episode Type Induced Flag NO IDCO Episode Detection Interval Ventricular 373 ms IDCO Episode Duration 6 s IDCO Episode Detection And Therapy Details NonSustV IDCO Episode Identifier IDCO Episode Date Time IDCO Episode Type Category VT IDCO Episode Vendor Type Category NSVT IDCO Episode Type Induced Flag NO IDCO Episode Detection Interval Ventricular 373 ms IDCO Episode Duration 6 s IDCO Episode Detection And Therapy Details NonSustV IDCO Episode Identifier IDCO Episode Date Time IDCO Episode Type Category VT IDCO Episode Vendor Type Category NSVT IDCO Episode Type Induced Flag NO IDCO Episode Detection Interval Ventricular 373 ms IDCO Episode Duration 6 s IDCO Episode Detection And Therapy Details NonSustV IDCO Episode Identifier V-180 IDCO Episode Date Time IDCO Episode Type Category VT IDCO Episode Vendor Type Category NSVT IDCO Episode Type Induced Flag NO IDCO Episode Detection Interval Ventricular 377 ms IDCO Episode Duration 6 s IDCO Episode Detection And Therapy Details NonSustV IDCO Episode Identifier V-1800 IDCO Episode Date Time IDCO Episode Type Category VT IDCO Episode Vendor Type Category NSVT IDCO Episode Type Induced Flag NO IDCO Episode Detection Interval Ventricular 397 ms IDCO Episode Duration 7 s IDCO Episode Detection And Therapy Details NonSustV IDCO Episode Identifier [id number] IDCO Episode Date Time IDCO Episode Type Category VT IDCO Episode Vendor Type Category NSVT IDCO Episode Type Induced Flag NO IDCO Episode Detection Interval Ventricular 417 ms IDCO Episode Duration 6 s IDCO Episode Detection And Therapy Details NonSustV IDCO Episode Identifier [id number] IDCO Episode Date Time IDCO Episode Type Category VT IDCO Episode Vendor Type Category NSVT IDCO Episode Type Induced Flag NO IDCO Episode Detection Interval Ventricular 377 ms IDCO Episode Duration 6 s IDCO Episode Detection And Therapy Details NonSustV IDCO Episode Identifier [id number] IDCO Episode Date Time IDCO Episode Type Category VT IDCO Episode Vendor Type Category NSVT IDCO Episode Type Induced Flag NO IDCO Episode Detection Interval Ventricular 395 ms IDCO Episode Duration 5 s IDCO Episode Detection And Therapy Details NonSustV IDCO Episode Identifier V-179 IDCO Episode Date Time IDCO Episode Type Category VT IDCO Episode Vendor Type Category NSVT IDCO Episode Type Induced Flag NO IDCO Episode Detection Interval Ventricular 377 ms IDCO Episode Duration 5 s IDCO Episode Detection And Therapy Details NonSustV IDCO Episode Identifier ATR-254 IDCO Episode Date Time IDCO Episode Type Category AT/AF IDCO Episode Vendor Type Category ATR IDCO Episode Detection Interval Atrial 287 ms IDCO Episode Duration 34 s IDCO Episode Detection And Therapy Details ATR IDCO Episode Identifier ATR-253 IDCO Episode Date Time [id number] IDCO Episode Type Category AT/AF IDCO Episode Vendor Type Category ATR IDCO Episode Detection Interval Atrial 252 ms IDCO Episode Duration 7,163 s IDCO Episode Detection And Therapy Details ATR IDCO Episode Identifier ATR-252 IDCO Episode Date Time IDCO Episode Type Category AT/AF IDCO Episode Vendor Type Category ATR IDCO Episode Detection Interval Atrial 400 ms IDCO Episode Duration 7 s IDCO Episode Detection And Therapy Details ATR IDCO Episode Identifier ATR-251 IDCO Episode Date Time IDCO Episode Type Category AT/AF IDCO Episode Vendor Type Category ATR IDCO Episode Detection Interval Atrial 274 ms IDCO Episode Duration 9 s IDCO Episode Detection And Therapy Details ATR IDCO Episode Identifier ATR-250 IDCO Episode Date Time [id number] IDCO Episode Type Category AT/AF IDCO Episode Vendor Type Category ATR IDCO Episode Detection Interval Atrial 271 ms IDCO Episode Duration 8 s IDCO Episode Detection And Therapy Details ATR IDCO Episode Identifier ATR-249 IDCO Episode Date Time [id number] IDCO Episode Type Category AT/AF IDCO Episode Vendor Type Category ATR IDCO Episode Detection Interval Atrial 263 ms IDCO Episode Duration 64 s IDCO Episode Detection And Therapy Details ATR IDCO Episode Identifier ATR-248 IDCO Episode Date Time IDCO Episode Type Category AT/AF IDCO Episode Vendor Type Category ATR IDCO Episode Detection Interval Atrial 280 ms IDCO Episode Duration 984 s IDCO Episode Detection And Therapy Details ATR IDCO Episode Identifier ATR-247 IDCO Episode Date Time IDCO Episode Type Category AT/AF IDCO Episode Vendor Type Category ATR IDCO Episode Detection Interval Atrial 293 ms IDCO Episode Duration 300 s IDCO Episode Detection And Therapy Details ATR IDCO Episode Identifier ATR-246 IDCO Episode Date Time IDCO Episode Type Category AT/AF IDCO Episode Vendor Type Category ATR IDCO Episode Detection Interval Atrial 282 ms IDCO Episode Duration 8,736 s IDCO Episode Detection And Therapy Details ATR IDCO Episode Identifier ATR-245 IDCO Episode Date Time IDCO Episode Type Category AT/AF IDCO Episode Vendor Type Category ATR IDCO Episode Detection Interval Atrial 271 ms IDCO Episode Duration 2,245 s IDCO Episode Detection And Therapy Details ATR IDCO Episode Statistic Type Category VF IDCO Episode Statistic Vendor Type Category VF IDCO Episode Statistic Recent Count 0 IDCO Episode Statistic Recent Date Time Start 20180408 IDCO Episode Statistic Recent Date Time End 20190113 IDCO Episode Statistic Type Category VT IDCO Episode Statistic Vendor Type Category VT IDCO Episode Statistic Recent Count 0 IDCO Episode Statistic Recent Date Time Start 20180408 IDCO Episode Statistic Recent Date Time End 20190113 IDCO Episode Statistic Type Category VT IDCO Episode Statistic Vendor Type Category VT-1 IDCO Episode Statistic Recent Count 0 IDCO Episode Statistic Recent Date Time Start 20180408 IDCO Episode Statistic Recent Date Time End 20190113 IDCO Episode Statistic Type Category Monitor IDCO Episode Statistic Vendor Type Category IDCO Episode Statistic Recent Count 0 IDCO Episode Statistic Recent Date Time Start 20180408 IDCO Episode Statistic Recent Date Time End 20190113 IDCO Episode Statistic Type Category Other IDCO Episode Statistic Vendor Type Category IDCO Episode Statistic Recent Count 0 IDCO Episode Statistic Recent Date Time Start 20180408 IDCO Episode Statistic Recent Date Time End 20190113 IDCO Episode Statistic Type Category VT IDCO Episode Statistic Vendor Type Category NSVT IDCO Episode Statistic Recent Count 191 IDCO Episode Statistic Recent Date Time Start 20180408 IDCO Episode Statistic Recent Date Time End 20190113 IDCO Episode Statistic Type Category AT/AF IDCO Episode Statistic Vendor Type Category ATR IDCO Episode Statistic Recent Count 61 IDCO Episode Statistic Recent Date Time Start 20180408 IDCO Episode Statistic Recent Date Time End 20190113 IDCO Albaro Setting AT Mode Switch Mode [...] E162 IDCO Implantable Pulse Generator Serial Number [id number] IDCO Implantable Pulse Generator Packing House Supervisor [employer] IDCO Implantable Pulse Generator Implant Date 20140110 IDCO Implantable Lead Model 4136 IDCO Implantable Lead Serial Number [id number] IDCO Implantable Lead Packing House Supervisor Guidant IDCO Implantable Lead Implant Date 20130421 IDCO Implantable Lead Polarity Type Bipolar Lead IDCO Implantable Lead Location Right Atrium IDCO Implantable Lead Model 0292 IDCO Implantable Lead Serial Number [id number] IDCO Implantable Lead Packing House Supervisor [employer] IDCO Implantable Lead Implant Date IDCO Implantable Lead Location Right Ventricle IDCO Lead Channel Measurements Date and Time Start 20180408 IDCO Lead Channel Measurements Date and Time End 20190112 IDCO Lead Channel Sensing Intrinsic Amplitude Mean 3.5 mV IDCO Lead Channel Sensing Polarity Bipolar IDCO Lead Channel Pacing Threshold Amplitude 0.7 V IDCO Lead Channel Pacing Threshold Pulse Width 0.5 ms IDCO Lead Channel Pacing Threshold Measurement Method Flavor Tank Tender Manual IDCO Lead Channel Pacing Threshold Polarity Bipolar IDCO Lead Channel Impedance Value 740 ohms IDCO Lead Channel Impedance Polarity Bipolar IDCO Lead Channel Measurements Date and Time Start 20180408 IDCO Lead Channel Measurements Date and Time End 20190112 IDCO Lead Channel Sensing Intrinsic Amplitude Mean 11.4 mV IDCO Lead Channel Sensing Polarity Bipolar IDCO Lead Channel Pacing Threshold Amplitude 0.7 V IDCO Lead Channel Pacing Threshold Pulse Width 0.5 ms IDCO Lead Channel Pacing Threshold Measurement Method Flavor Tank Tender Manual IDCO Lead Channel Pacing Threshold Polarity Bipolar IDCO Lead Channel Impedance Value 597 ohms IDCO Lead Channel Impedance Polarity Bipolar IDCO Lead High Voltage Channel Date Time 20190112 IDCO Lead High Voltage Channel Impedance 87 ohms IDCO Lead High Voltage Channel Measurement Type Low Voltage Pulse IDCO Statistic Date Time Start 20180408 IDCO Statistic Date Time End 20190113 IDCO Albaro Statistic Date Time Start 20180408 IDCO Albaro Statistic Date Time End 20190113 IDCO Albaro Statistic RA Percent Paced 2 % IDCO Albaro Statistic RV Percent Paced 2 % IDCO Therapy Statistic Recent Date Time Start 20180408 IDCO Therapy Statistic Recent Date Time End 20190113 IDCO Therapy Statistic Recent Shocks Delivered 0 IDCO Therapy Statistic Total Date Time Start 20140110 IDCO Therapy Statistic Total Date Time End 20190113 IDCO Therapy Statistic Total Shocks Delivered 2 IDCO Therapy Statistic Recent Shocks Aborted 0 IDCO Therapy Statistic Total Shocks Aborted 0 IDCO Therapy Statistic Recent ATP Delivered 0 IDCO Therapy Statistic Total ATP Delivered 1 IDCO Anatomical Region Laterality Modality Other 01/13/2019 4:20 PM EDT Physician Cardiology IMPLANTABLE CARD IAC DEVICE documented in this encounter Visit Diagnoses Not on filedocumented in this encounter Care Teams Psychosocial Rehabilitation Counselor Relationship Specialty Start Date End Date Dewayne Carrington MD [address] [place] [address] PCP - General 09/02/16 documented as of this encounter
--- OUTSIDE RECORDS SUMMARY | 2023-11-03 01:25 | XMS_ITS | Encounter Summary ---
[place] [address] Care Team Providers Care Epilepsy Physician Name Role Phone Dewayne Carrington MD Primary Care Provider Reason for Visit * Reason Comments Wound Check Encounter Details Date Type Department Care Team (Late st Contact Info) Description 03/04/2019 1:00 PM EST Office [place] [phone] Kelly Zheng RN Pressure injury of right buttock, stage 1 [...] Sign Reading Time Taken Comments Blood Pressure 148/81 03/04/2019 1:00 PM EST Pulse 92 03/04/2019 1:00 PM EST Temperature 36.6 ??C (97.8 ??F) 03/04/2019 1:00 PM ES T Respiratory Rate - - Oxygen Saturation 97% 03/04/2019 1:00 PM EST Inhaled Oxygen Concentration - - Weight - - Height - - Body Mass Index - - documented in this encounter Progress Notes * Kelly Zheng RN - 03/04/2019 1:00 PM EST Images from the original note were not included. [facility] Progress Note HPI: Marquez Hendrix is a 68 y.o. male who returns for follow up. He was initially referred by Dewayne Carrington MD for evaluation of a buttock wound. The patient has a 1 year history of a painful area of redness over my tailbone. He has a work history of sitting all day on a hard stool. He is now retired and active. He has tried zinc cream and gold kumar cream without relief. He reports pain over the tailbone with sitting; he denies radiationto the back or down the leg. He has cycling shorts, which he states help the pain. He denies pain with cycling (road and gravel). He denies trauma to the area. Type of Wound Pressure ulcer: Ambulatory Home Health Agency: No Subjective: Patient denies fever, chills, sweats. Denies nausea, vomiting, loose bowels. Appetite is good Taking protein supplements: No Activity/Mobility: Fully ambulatory Current pain level (see patient intake data) Analgesia needed prior to procedure? no Objective: Vitals: BP 148/81 (BP Location (NBP): Left arm, Patient Position: Sitting, BP Cuff Sizes: Adult (25-34 cm)) Pulse 92 Temp 36.6 ??C (97.8 ??F) (Oral) SpO2 97% Dressing was removed. There was no drainage. No open wounds Malodor no Erythema yes Very mild pink, blanchable, upper aspect of buttock area. bilateral. Pulses: Dorsalis Pedis: Right:n/a Left: n/a Posterior Tibia: Right: n/a Left: n/a Wound Location Measurements today 03/04/19 Measurements Tunneling/undermining Wound bed Tina wound skin Right ischium No open ulcers. 1.0 x 1.0 cm area none No wounds. Ector, blanchable PHOTO Treatment: Analgesia: none administered prior to debridement [] Order entered and documented on JUN Conservative Sharp Debridement: Bleeding: No Wound cleansed with normal saline Dressings/wraps applied: Applied hydroguard and a Mepilex Sacral Border for protection of the skin. Pain Reassessment post treatment (0-10): 3 Assessment: Marquez Hendrix is a 68 y.o. male who returns for f/u today of pain of bilateral buttocks. The upper aspect of each buttock is mildly pink and the skin is blanchable. The skin is somewhat cobblestone in appearance that is slightly raised. This is very subtle and does not appear to be pressure related given that the patient is quite active. At this time the etiology is unclear as to why this area is causing him discomfort. He has tried treating it as a dermatitis with various creamswithout success. He was given a redistribution Gaymar cushion at his last appointment which he useswhen sitting. He eats a high protein diet and his diabetes is fairly well controlled per his reportof A1C. Discussed a referral to Dermatology for further evaluation. The patient is going to contacthis PCP for a referral possibly closer to home. At this time, we will d/[facility] the [facility]. We will be happy to see the patient back on an as needed basis. The patient will call if they have any questions or concerns regarding wound care.The patient verbalized understanding of and agreement with the plan. Wound(s) currently stalled Plan: Patient is going to ask PCP for a referral to Dermatology. Follow up: Return to [facility] in approximately PRN. ?? High Protein foods: Beef, chicken, fish Beans, Lentils, peanut butter Mongolian and regular yogurt Cheese, eggs ?? Boost, Ensure shakes Protein powder in a smoothie of your choice ?? documented in this encounter Plan of Treatment Upcoming Encounters Date Type Department Care Team (Late st Contact Info) Description 12/18/2023 10:00 AM EDT Hospital Encounter [place] [address] Arrived documented as of this encounter Visit Diagnoses Diagnosis Pressure injury of right buttock, stage 1 documented in this encounter Care Teams Epilepsy Physician Relationship Specialty Start Date End Date Dewayne Carrington MD [address] [place], [place] [address] [address] PCP - General 09/02/16 documented as of this encounter
--- OUTSIDE RECORDS SUMMARY | 2023-11-03 01:25 | XMS_ITS | Encounter Summary ---
[place] [address] Care Team Providers Care Capsule Filling Machine Operator Name Role Phone Dewayne Carrington MD Primary Care Provider [phone] Reason for Referral * Consultation (Routine) - Closed Specialty Diagnoses / Procedures Referred By Contac t Referred To Contact Rheumatology Diagnoses Pain in right wrist Honorio Vasquez MD [facility] [place] [address] [facility] Rheumatology [address] [place] [phone] Referral ID Status Reason Start Date Expiration Date V isits Requested Visits Authorized [id number] Closed Consult, Test & Treat 07/19/2018 07/19/2019 1 1 Encounter Details Date Type Department Care Team (Late st Contact Info) Description 07/19/2018 8:00 AM EDT [place] [phone] Honorio Vasquez MD [facility] [place] [address] Social History Tobacco Use Types Packs/Day Years [...] as of this encounter Progress Notes * Honorio Vasquez MD - 07/19/2018 10:17 AM EDT I left a message with Marquez Hendrix regarding his positive SONAL. I will make a referral for him to be seen by rheumatology to see if this may represent an autoimmune disorder which may account for his bilateral wrist swelling and right wrist pain. documented in this encounter Miscellaneous Notes * Addendum Note - Elif Moulton RN - 07/19/2018 10:24 AM EDTAddended by: ELIF MOULTON on: 07/19/2018 10:24 AM Modules accepted: Orders documented in this encounter Plan of Treatment Upcoming Encounters Date Type Department Care Team (Late st Contact Info) Description 12/18/2023 10:00 AM EDT Hospital Encounter Non-[place] [address] Arrived Scheduled Referrals Name Type Priority Associated Diagnoses Order Schedule Referral to Rheumatology Outpatient Referral Routine Pain in right wrist Ordered: 07/19/2018 documented as of this encounter Visit Diagnoses Diagnosis Pain in right wrist Pain in joint, forearm documented in this encounter Care Teams Capsule Filling Machine Operator Relationship Specialty Start Date End Date Dewayne Carrington MD [facility] [place] [address] PCP - General 09/02/16 documented as of this encounter
--- OUTSIDE RECORDS SUMMARY | 2023-11-03 01:25 | XMS_ITS | Encounter Summary ---
Author Organization [place] [address] Care Team Providers Care Hip Hop Artist Name Role Phone Dewayne Carrington MD Primary Care Provider [phone] Encounter Details Date Type Department Care Team (Late st Contact Info) Description 05/05/2019 Telephone Cardiology at [address] [phone] Daniela Lacy RN Social History Tobacco Use Types Packs/Day [...] Miscellaneous Notes * Telephone Encounter - Daniela Lacy RN - 05/05/2019 3:43 PM EST Patient called just to report he has seen Dr. Zabala and had an EKG done today and the plan is for him to have a cardioversion on 05/13/19 at [facility]. Patient plans on continuing his cardiac care with Dr. Zabala up at [facility]. Daniela Lacy RN Ambulatory Cardiovascular Clinic General Team-[place] documented in this encounter Plan of Treatment Upcoming Encounters Date Type Department Care Team (Late st Contact Info) Description 12/18/2023 10:00 AM EDT Hospital Encounter Non[place] [address] Arrived documented as of this encounter Visit Diagnoses Not on filedocumented in this encounter Care Teams Hip Hop Artist Relationship Specialty Start Date End Date Dewayne Carrington MD [address] [place] [address] PCP - General 09/02/16 documented as of this encounter
--- OUTSIDE RECORDS SUMMARY | 2023-11-03 01:25 | XMS_ITS | Encounter Summary ---
[place] [address] Care Team Providers Care Turfgrass Management Professor Name Role Phone Dewayne Carrington MD Primary Care Provider [phone] Reason for Visit * Reason Onset Date Comments Questions 01/03/2019 [facility] co ntact Encounter Details Date Type Department Care Team (Late Contact Info) Description 01/03/2019 [place] [phone] Sita Fu RN Questions ([facility] contact) Social History Tobacco Use Types Packs/Day Years [...] encounter Miscellaneous Notes * Telephone Encounter - Elif Moulton RN - 01/04/2019 11:08 AM EDT Spoke with radiology in [facility], they state they will not complete a fluoro injection from an outside provider. Message out to Dr Villegas who will be happy to accommodate patient. Message left on patients identified voicemail to update.He can call for an appointment, Dr Villegas performs fluoro guided injections himself in office. * Telephone Encounter - Sita Fu RN - 01/03/2019 2:44 PM EDT Wondering if you were able [facility]leg[facility]? Is an injection planned? Does he needfollow with Rheumatology? [phone] Thanks. documented in this encounter Plan of Treatment Upcoming Encounters Date Type Department Care Team (Late st Contact Info) Description 12/18/2023 10:00 AM EDT Hospital Encounter Non-[place] [address] Arrived documented as of this encounter Visit Diagnoses Not on filedocumented in this encounter Care Teams Turfgrass Management Professor Relationship Specialty Start Date End Date Dewayne Carrington [place] [address] [address] PCP - General 09/02/16 documented as of this encounter
--- OUTSIDE RECORDS SUMMARY | 2023-11-03 01:25 | XMS_ITS | Encounter Summary ---
[place] [address] Care Team Providers Care Ebay Reseller Name Role Phone Dewayne Carrington MD Primary Care Provider [phone] Encounter Details Date Type Department Care Team (Late st Contact Info) Description 05/05/2019 Orders Only Cardiology at [address] [address] Social History Tobacco Use Types Packs/Day Years [...] AM EDT Hospital Encounter Non[place] [address] Arrived documented as of this encounter Procedures Procedure Name Priority Date/Time Associated Diagnosis Comments CARDIAC DEVICE CHECK - REMOTE SCHEDULED Routine 05/05/2019 12:41 AM EST documented in this encounter Results * Cardiac device check - Remote Scheduled (05/05/2019 12:41 AM EST) Date Time Interrogation Session [id number] IDCO Type Interrogation Session Remote Scheduled IDCO Clinic Name [facility] IDCO Battery Date Time of Measurements [id number] IDCO Battery Status Beginning of Service IDCO Battery Remaining Longevity 60 mo IDCO Battery Remaining Percentage 70 % IDCO Capacitor Last Charge Date Time IDCO Capacitor Charge Time 10.8 s IDCO Capacitor Charge Type Reformation IDCO Capacitor Last Charge Date Time [id number] IDCO Capacitor Charge Time 3.8 s IDCO Capacitor Charge Energy 21 J IDCO Capacitor Charge Type Shock IDCO Episode Identifier [id number] IDCO Episode Date Time IDCO Episode Type Category Periodic EGM IDCO Episode Vendor Type Category APMRT IDCO Episode Detection And Therapy Details Presenting EGM IDCO Episode Identifier [id number] IDCO Episode Date Time IDCO Episode Type Category VT IDCO Episode Vendor Type Category NSVT IDCO Episode Type Induced Flag NO IDCO Episode Detection Interval Ventricular 370 ms IDCO Episode Duration 7 s IDCO [...] IDCO Episode Statistic Recent Date Time End 20190505 IDCO Episode Statistic Type Category VT IDCO Episode Statistic Vendor Type Category VT IDCO Episode Statistic Recent Count 0 IDCO Episode Statistic Recent Date Time Start 20180408 IDCO Episode Statistic Recent Date Time End 20190505 IDCO Episode Statistic Type Category VT IDCO Episode Statistic Vendor Type Category VT-1 IDCO Episode Statistic Recent Count 0 IDCO Episode Statistic Recent Date Time Start 20180408 IDCO Episode Statistic Recent Date Time End 20190505 IDCO Episode Statistic Type Category Monitor IDCO Episode Statistic Vendor Type Category IDCO Episode Statistic Recent Count 0 IDCO Episode Statistic Recent Date Time Start 20180408 IDCO Episode Statistic Recent Date Time End 20190505 IDCO Episode Statistic Type Category Other IDCO Episode Statistic Vendor Type Category IDCO Episode Statistic Recent Count 0 IDCO Episode Statistic Recent Date Time Start 20180408 IDCO Episode Statistic Recent Date Time End 20190505 IDCO Episode Statistic Type Category VT IDCO Episode Statistic Vendor Type Category NSVT IDCO Episode Statistic Recent Count 290 IDCO Episode Statistic Recent Date Time Start 20180408 IDCO Episode Statistic Recent Date Time End 20190505 IDCO Episode Statistic Type Category AT/AF IDCO Episode Statistic Vendor Type Category ATR IDCO Episode Statistic Recent Count 81 IDCO Episode Statistic Recent Date Time Start 20180408 IDCO Episode Statistic Recent Date Time End 20190505 IDCO Albaro Setting AT Mode Switch Mode [...] E162 IDCO Implantable Pulse Generator Serial Number [id number] IDCO Implantable Pulse Generator Core Feeder [place] [employer] IDCO Implantable Pulse Generator Implant Date 20140110 IDCO Implantable Lead Model 4136 IDCO Implantable Lead Serial Number [id number] IDCO Implantable Lead Core Feeder Guidant IDCO Implantable Lead Implant Date 20130421 IDCO Implantable Lead Polarity Type Bipolar Lead IDCO Implantable Lead Location Right Atrium IDCO Implantable Lead Model 0292 IDCO Implantable Lead Serial Number [id number] IDCO Implantable Lead Core Feeder [employer] IDCO Implantable Lead Implant Date IDCO Implantable Lead Location Right Ventricle IDCO Lead Channel Measurements Date and Time Start 20180408 IDCO Lead Channel Measurements Date and Time End 20190504 IDCO Lead Channel Sensing Intrinsic Amplitude Mean 2.2 mV IDCO Lead Channel Sensing Polarity Bipolar IDCO Lead Channel Pacing Threshold Amplitude 0.7 V IDCO Lead Channel Pacing Threshold Pulse Width 0.5 ms IDCO Lead Channel Pacing Threshold Measurement Method Grading Clerk Manual IDCO Lead Channel Pacing Threshold Polarity Bipolar IDCO Lead Channel Impedance Value 646 ohms IDCO Lead Channel Impedance Polarity Bipolar IDCO Lead Channel Measurements Date and Time Start 20180408 IDCO Lead Channel Measurements Date and Time End 20190504 IDCO Lead Channel Sensing Intrinsic Amplitude Mean 12.3 mV IDCO Lead Channel Sensing Polarity Bipolar IDCO Lead Channel Pacing Threshold Amplitude 0.7 V IDCO Lead Channel Pacing Threshold Pulse Width 0.5 ms IDCO Lead Channel Pacing Threshold Measurement Method Grading Clerk Manual IDCO Lead Channel Pacing Threshold Polarity Bipolar IDCO Lead Channel Impedance Value 600 ohms IDCO Lead Channel Impedance Polarity Bipolar IDCO Lead High Voltage Channel Date Time 20190504 IDCO Lead High Voltage Channel Impedance 81 ohms IDCO Lead High Voltage Channel Measurement Type Low Voltage Pulse IDCO Statistic Date Time Start 20180408 IDCO Statistic Date Time End 20190505 IDCO Albaro Statistic Date Time Start 20180408 IDCO Albaro Statistic Date Time End 20190505 IDCO Albaro Statistic RA Percent Paced 2 % IDCO Albaro Statistic RV Percent Paced 2 % IDCO Therapy Statistic Recent Date Time Start 20180408 IDCO Therapy Statistic Recent Date Time End 20190505 IDCO Therapy Statistic Recent Shocks Delivered 0 IDCO Therapy Statistic Total Date Time Start 20140110 IDCO Therapy Statistic Total Date Time End 20190505 IDCO Therapy Statistic Total Shocks Delivered 2 IDCO Therapy Statistic Recent Shocks Aborted 0 IDCO Therapy Statistic Total Shocks Aborted 0 IDCO Therapy Statistic Recent ATP Delivered 0 IDCO Therapy Statistic Total ATP Delivered 1 IDCO Anatomical Region Laterality Modality Other 05/05/2019 12:4 1 AM EST Physician Cardiology IMPLANTABLE CARD IAC DEVICE documented in this encounter Visit Diagnoses Not on filedocumented in this encounter Care Teams Ebay Reseller Relationship Specialty Start Date End Date Dewayne Carrington MD [address] [place] [address] PCP - General 09/02/16 documented as of this encounter
--- OUTSIDE RECORDS SUMMARY | 2023-11-03 01:25 | XMS_ITS | Encounter Summary ---
Author Organization [facility] [place] [address] Care Team Providers Care Geological Manager Name Role Phone Dewayne Carrington MD Primary Care Provider [phone] Encounter Details Date Type Department Care Team (Late st Contact Info) Description 11/08/2018 10:30 AM EDT Procedure visit [place] [address] Yamile Pimentel, 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 Also notes pain wit ext No synovitis on exam. No warmth on exam. Has bl 4th digit early dupuytren B-mode ultrasound is performed utilizing an 8-18 mHz linear probe. Static real- time views in longitudinal and transverse (short axis) orientation were obtained. Images are available on the Rheumatology [facility] [employer] [facility]. Images of the left Wrist demonstrate no cortical irregularity or destruction. Synovial fluid and/orhypertrophy are not noted at the joint margins. Negative power doppler and no rheumatoid erosions are seen. Flexor tendons are intact with no tenosynovial fluid or distension. Dynamic testing shows normal motion of the flexor tendon. No appreciable enlargement of the median nerve Images of the Right wrist demonstrate no Destruction,cortical irregularity Noted at the distal ulna, no tenosynovitis in the ecu, hyperechoic signal seen in the medial wrist in the anatomic location of the tfcc . Synovial fluid and/or hypertrophy are not noted at the joint margins. Negative power doppler and no rheumatoid erosions are seen. Flexor tendons are intact with no tenosynovial fluid or distension. Dynamic testing shows normal motion of the flexor tendon. No appreciable enlargement of ht emedian nerve No evidence of an inflammatory arthritis. Xrays of the left wrist ordered to assess supected OA By history and exam there is not an underlying rheumatologic disease and he does not need further rheumatologic follow up documented in this encounter Plan of Treatment Upcoming Encounters Date Type Department Care Team (Late st Contact Info) Description 12/18/2023 10:00 AM EDT Hospital Encounter Non-Invasive [place] [address] Arrived documented as of this encounter Results * XR Wrist Complete [...] below. ? Electronically signed by: RAHEEL Vazquez [facility] ([phone]), at 11/08/2018 1:47 PM Narrative 11/08/2018 1:47 [...] normal. Procedure Note Derrell Lynn MD - 11/08/2018 EXAMINATION: XR WRIST COMPLETE MIN 3 VIEWS [...] number below. Electronically signed by: RAHEEL Vazquez [facility]([phone]), at 11/08/2018 1:47 PM Yamile Avery Margarito DO IMG DX ORDERABLES * XR Hand [...] report, please contact the number below. 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
--- OUTSIDE RECORDS SUMMARY | 2023-11-03 01:25 | XMS_ITS | Encounter Summary ---
Author Organization [facility] [place] [address] Care Team Providers Care Sample Hand Name Role Phone Dewayne Carrington MD Primary Care Provider [phone] Encounter Details Date Type Department Care Team (Late st Contact Info) Description 02/07/2019 Telephone Cardiology at [address] [phone] [place] Penn LNA Social History Tobacco Use Types Packs/Day Years [...] encounter Miscellaneous Notes * Telephone Encounter - [place]ia Zarate LNA - 02/07/2019 11:50 AM EDT [facility] Visit Date - 09/03/2018 Medications reviewed since appointment at [facility]. I did not change medication. documented in this encounter Plan of Treatment Upcoming Encounters Date Type Department Care Team (Late st Contact Info) Description 12/18/2023 10:00 AM EDT Hospital Encounter Non-Invasive [place] [address] Arrived documented as of this encounter Visit Diagnoses Not on filedocumented in this encounter Care Teams Sample Hand Relationship Specialty Start Date End Date Dewayne Carrington MD [address] [place] [address] PCP - General 09/02/16 documented as of this encounter
--- OUTSIDE RECORDS SUMMARY | 2023-11-03 01:25 | XMS_ITS | Encounter Summary ---
[place] [address] Care Team Providers Care Senior Java Engineer Name Role Phone Dewayne Carrington MD Primary Care Provider [phone] Encounter Details Date Type Department Care Team ([facility] Contact Info) Description 05/17/2019 External Results Cardiology at [address] [address] Dewayne Carrington MD [address] [place] [phone] Social History Tobacco Use Types Packs/Day Years [...] AM EDT Hospital Encounter Non-[place] [address] Arrived documented as of this encounter Procedures Procedure Name Priority Date/Time Associated Diagnosis Comments EP DEVICE SCAN Routine 05/05/2019 documented in this encounter Results * Scan Doc: EP Device (05/05/2019) Anatomical Region Laterality Modality Other Dewayne Carrington MD MEDIA MGR SCAN EXT O RDR/RSLT documented in this encounter Visit Diagnoses Not on filedocumented in this encounter Care Teams Senior Java Engineer Relationship Specialty Start Date End Date Dewayne Carrington MD [address] [place] [address] PCP - General 09/02/16 documented as of this encounter
--- OUTSIDE RECORDS SUMMARY | 2023-11-03 01:25 | XMS_ITS | Encounter Summary ---
Author Organization [facility] Address [facility] [place] [address] Care Team Providers Care Security Tester Name Role Phone Dewayne Carrington MD Primary Care Provider [phone] Reason for Visit * Consultation (Routine) - Closed Specialty Diagnoses / Procedures Referred By Conteddie t Referred To Contact Rheumatology Diagnoses Pain in right wrist Honorio Vasquez MD [facility] [address] [place] [address] [facility] [place] [facility] [address] [place] [id number] Referral ID Status Reason Start Date Expiration Date V isits Requested Visits Authorized [id number] Closed Consult, Test & Treat 07/19/2018 07/19/2019 1 1 Encounter Details Date Type Department Care Team (Late st Contact Info) Description 09/01/2018 11:00 AM EDT Office [place] [phone] Lee Ann Loaiza MD [facility] [place] [address] Raised antibody titer; Arthralgia, unspecified joint; Cervicalgia; Chronic midline low back pain with left-sided sciatica Social History Tobacco Use Types Packs/Day Years [...] Sign Reading Time Taken Comments Blood Pressure 111/68 09/01/2018 10:57 AM EDT Pulse 72 09/01/2018 10:57 AM EDT Temperature 36.6 ??C (97.9 ??F) 09/01/2018 10:57 AM E DT Respiratory Rate - - Oxygen Saturation 99% 09/01/2018 10:57 AM EDT Inhaled Oxygen Concentration - - Weight 92.1 kg (203 lb) 09/01/2018 10:57 AM EDT Height 185.4 cm (6' 1) 09/01/2018 10:57 AM EDT Body Mass Index 26.78 09/01/2018 10:57 AM EDT documented in this encounter Progress Notes * Lee Ann Loaiza MD - 09/01/2018 11:00 AM EDT Outpatient Rheumatology Consult CC: Asked by Honorio Vasquez, orthopedics to evaluate this patient with pain in the right wrist HPI: Mr. 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 By CT arthrogram. Did not have an MRI because of of the defibrillator and is not clear if this is MRI compatible. As patient was noticed to have pain and swelling in both wrists referred to rheumatology for evaluation of potential inflammatory arthropathy. Positive SONAL 1: 80 SP No swelling in joints. Pain is not constant mostly associated with activity such as a radial and ulnar deviation. L knee hematoma [...] basket, pushing down on the exercise bike. PMH: A.fib, on anticoagulation SVT s/p ICD ASCVD DM HTN IBS Depression Chronic back pain for years. 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 Using vaping pen for about 4 [...] Phalen's test negative. 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 NO MCP compression tenderness Hands: Wrists: FROM with pain in the ulnar aspect above the joint. Elbows: FROM Shoulders: FROM Hips: FROM Knees: FROM Ankles: FROM Feet: No MTP compression tenderness Labs: 07/14/2018 SONAL 1:80 speckled pattern CCP, dsDNA, CRP negative MCV 79.9, H/H 12.3/40.1 09/23/2017 x-ray right wrist Soft tissue swelling identified. Aside from mild to moderate degenerative changes at the past metacarpal multangular joint, there are minimal degenerative changes involving the carpus. There is no evidence of acute fracture or dislocation. 01/01/2018 CT of the right upper extremity (right distal radius fracture with continued triangular complex pain question triangular fibrocartilage complex. 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 Based on history exam, low suspicion for inflammatory arthritis such as RA. Await MRI right wrist (If he gets one after checking with cardiology- if defibrillator is MRI compatible). 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 ??If associated with pain. Check RF, MARLEEN, ESR to complete the work-up. Advised on Tylenol thousand milligrams 2-3 times daily as needed, topical analgesics such as BenGay, Arnica gel. If no benefit, consider Voltaren gel. On tramadol 50 mg, 1 tablet daily for pain and to help with depression. RTC in 4 weeks. documented in this encounter Miscellaneous Notes * Addendum Note - Cruz Rizo - 09/01/2018 11:00 AM EDTAddended by: CRUZ RIZO on: 09/01/2018 12:17 PM Modules accepted: Orders documented in this encounter Plan of Treatment Upcoming Encounters Date Type Department Care Team (Late st Contact Info) Description 12/18/2023 10:00 AM EDT Hospital Encounter Non[place] [address] Arrived documented as of this encounter Procedures Procedure Name Priority Date/Time Associated Diagnosis Comments EXTRACTABLE NUCLEAR ANTIGEN (MARLEEN) AB Routine 09/01/2018 12:29 PM EDT Raised antibody titer Arthralgia, unspecified joint SEDIMENTATION RATE Routine 09/01/2018 12 :29 PM EDT Raised antibody titer Arthralgia, unspecified joint RHEUMATOID FACTOR, QUANT Routine 09/01/2018 12:29 PM EDT Raised antibody titer Arthralgia, unspecified joint URIC ACID Routine 09/01/2018 12:29 PM EDT Raised antibody titer Arthralgia, unspecified joint COMPREHENSIVE METABOLIC PANEL (NON-FASTING) Routine 09/01/2018 12:29 PM EDT Raised antibody titer Arthralgia, unspecified joint documented in this encounter Results * Uric acid (09/01/2018 12:29 PM EDT) Uric Acid 4.7 3.5 - 8.5 mg/dL [facility] Blood specimen (specimen) 09/01/2018 12:29 PM EDT 09/01/2018 12:36 PM EDT Narrative Resulting Agency Comment Spec In Lab Lee Ann Loaiza MD CHEMISTRY ORDERABLES [facility] [place] [address] * (ABNORMAL) Comprehensive metabolic panel (non-fasting) (09/01/2018 12:29 PM EDT) Glucose Lvl 161 65 - 199 mg/dL [facility] Comment:Diabetes: >=200 mg/d L plus symptoms BUN 14 10 - 20 mg/dL [facility] Creatinine 0.92 0.80 - 1.50 mg/dL [facility] Sodium 140 135 - 145 mmol/L [facility] Potassium 4.4 3.5 - 5.0 mmol/L [facility] Comment: Please note: ??Patients with WBC >100,000 may have falsely elevated Potassium levels. ??For accurate Potassium quantification in these patients send serum separator tube (gold top) for subsequent determinations. ??Contact the Clinical Chemistry Laboratory if there are any questions. Chloride 102 98 - 107 mmol/L [facility] CO2 24 22 - 31 mmol/L [facility] Anion Gap 14 5 - 15 mmol/L [facility] Calcium 9.3 8.5 - 10.5 mg/dL [facility] Total Protein 7.5 6.1 - 8.0 gm/dL [facility] Albumin 4.6 3.2 - 5.2 gm/dL [facility] AST 41(H) 0 - 39 unit/L [facility] ALT 41 0 - 55 unit/L [facility] Alk Phos 70 40 - 120 unit/L [facility] Total Bilirubin 0.4 0.2 - 1.3 mg/dL [facility] Estimated GFR 85 >=60 mL/min/1. 73 m?? [facility] Comment: The eGFR was calculated using the CKD-EPI equation. As with all creatinine based estimates of kidney function, eGFR values calculated with the CKD-EPI equation are not accurate in patients with acute kidney failure, extremes of body mass or the acutely ill. [email or web address] eGFR 98 >=60 mL/min/1. 73 m?? [facility] Comment: The eGFR was calculated using the CKD-EPI equation. As with all creatinine based estimates of kidney function, eGFR values calculated with the CKD-EPI equation are not accurate in patients with acute kidney failure, extremes of body mass or the acutely ill. [email or web address] Blood specimen (specimen) 09/01/2018 12:29 PM EDT 09/01/2018 12:36 PM EDT Narrative Resulting Agency Comment Spec In Lab Lee Ann Loaiza MD CHEMISTRY ORDERABLES Performing Organization Address City/[facility]/ZIP Co de Phone Number [facility] [place] [address] * Sedimentation rate (09/01/2018 12:29 PM EDT) Sed Rate 6 0 - 15 mm/hr [facility] Blood specimen (specimen) 09/01/2018 12:29 PM EDT 09/01/2018 12:35 PM EDT Narrative Resulting Agency Comment Spec In Lab Lee Ann Loaiza MD HEMATOLOGY ORDERABLE S Performing Organization Address [facility] Co de Phone Number [facility] [place] [address] * Extractable Nuclear Antigen (MARLEEN) Ab (09/01/2018 12:29 PM EDT) MARLEEN Ab Test ?Result ?Flag ??Unit ??RefValue Ab to Extractable Nuclear Ag Eval,S ??SS-A/Ro Ab, IgG, S ?<0.2 ?U ? <1.0 (Negative) ??SS-B/La Ab, IgG, S ?<0.2 ?U ? <1.0 (Negative) ??Sm Ab, IgG, S ? <0.2 ?U ? <1.0 (Negative) ??DOORSHAKER Ab, IgG, S ?0.4 ? U ? <1.0 (Negative) ??Scl 70 Ab, IgG, S ? <0.2 ?U ? <1.0 (Negative) ??Jaylin 1 Ab, IgG, S ? <0.2 ?U ? <1.0 (Negative) ?Test Performed by: ?[facility] ?[address] [place] [address] [facility] Blood specimen (specimen) 09/01/2018 12:29 PM EDT 09/01/2018 1:32 PM EDT Narrative Resulting Agency Comment Spec In Lab Lee Ann Loaiza MD IMMUNOLOGY ORDERABLE S Performing Organization Address City/State/[facility] Co de Phone Number [facility] [place] [address] * Rheumatoid factor, quant (09/01/2018 12:29 PM EDT) RF <10 <=14 IU/mL [facility] Blood specimen (specimen) 09/01/2018 12:29 PM EDT 09/01/2018 12:36 PM EDT Narrative Resulting Agency Comment Spec In Lab Lee Ann Loaiza MD IMMUNOLOGY ORDERABLE S [facility] [place] [address] documented in this encounter Visit Diagnoses Diagnosis Raised antibody titer Other and unspecified nonspecific immunological findings Arthralgia, unspecified joint Cervicalgia Chronic midline low back pain with left-sided sciatica documented in this encounter Care Teams Security Tester Relationship Specialty Start Date End Date Dewayne Carrington MD [address] [place] [address] PCP - General 09/02/16 documented as of this encounter
--- OUTSIDE RECORDS SUMMARY | 2023-11-03 01:25 | XMS_ITS | Encounter Summary ---
[place] [address] Care Team Providers Care Advisor Consultant Name Role Phone Dewayne Carrington MD Primary Care Provider [phone] Encounter Details Date Type Department Care Team (Late st Contact Info) Description 06/20/2019 Orders Only Cardiology at [address] [phone] Social History Tobacco Use Types Packs/Day Years [...] AM EDT Hospital Encounter Non-Invasive [place] [address] Arrived documented as of this encounter Procedures Procedure Name Priority Date/Time Associated Diagnosis Comments CARDIAC DEVICE CHECK - REMOTE PATIENT INITIATED Routine 06/20/2019 5:33 PM EST documented in this encounter Results * Cardiac device check - Remote Patient Initiated (06/20/2019 5:33 PM EST) Date Time Interrogation Session [id number] IDCO Type Interrogation Session Remote Patient Initiated IDCO Clinic Name [facility] IDCO Battery Date Time of Measurements [id number] IDCO Battery Status Beginning of Service IDCO Battery Remaining Longevity 66 mo IDCO Battery Remaining Percentage 80 % IDCO Capacitor Last Charge Date Time IDCO Capacitor Charge Time 10.8 s IDCO Capacitor Charge Type Reformation IDCO Capacitor Last Charge Date Time IDCO Capacitor Charge Time 3.8 s IDCO Capacitor Charge Energy 21 J IDCO Capacitor Charge Type Shock IDCO Episode Identifier [id number] IDCO Episode Date Time IDCO Episode Type Category Periodic EGM IDCO Episode Vendor Type Category APMRT IDCO Episode Detection And Therapy Details Presenting EGM IDCO Episode Identifier [id number] IDCO Episode Date Time IDCO Episode Type Category Other IDCO Episode Vendor Type Category XANDER IDCO Episode Detection Interval Ventricular 923 ms IDCO Episode Duration 54 s IDCO Episode Detection And Therapy Details IDCO Episode Identifier [id number] IDCO Episode Date Time IDCO Episode Type Category Other IDCO Episode Vendor Type Category XANDER IDCO Episode Detection Interval Ventricular 952 ms IDCO Episode Duration 57 s IDCO Episode Detection And Therapy Details IDCO Episode Identifier [id number] IDCO Episode Date Time IDCO Episode Type Category Other IDCO Episode Vendor Type Category XANDER IDCO Episode Detection Interval Ventricular 968 ms IDCO Episode Duration 56 s IDCO Episode Detection And Therapy Details IDCO Episode Identifier [id number] IDCO Episode Date Time IDCO Episode Type Category Other IDCO Episode Vendor Type Category XANDER IDCO Episode Detection Interval Ventricular 952 ms IDCO Episode Duration 56 s IDCO Episode Detection And Therapy Details IDCO Episode Identifier [id number] IDCO Episode Date Time IDCO Episode Type Category Other IDCO Episode Vendor Type Category XANDER IDCO Episode Detection Interval Ventricular 1,091 ms IDCO Episode Duration 58 s IDCO Episode Detection And Therapy Details IDCO Episode Identifier [id number] IDCO Episode Date Time IDCO Episode Type Category Other IDCO Episode Vendor Type Category XANDER IDCO Episode Detection Interval Ventricular 952 ms IDCO Episode Duration 55 s IDCO Episode Detection And Therapy Details IDCO Episode Identifier [id number] IDCO Episode Date Time IDCO Episode Type Category Other IDCO Episode Vendor Type Category XANDER IDCO Episode Detection Interval Ventricular 923 ms IDCO Episode Duration 55 s IDCO Episode Detection And Therapy Details IDCO Episode Identifier [id number] IDCO Episode Date Time IDCO Episode Type Category Other IDCO Episode Vendor Type Category XANDER IDCO Episode Detection Interval Ventricular 896 ms IDCO Episode Duration 54 s IDCO Episode Detection And Therapy Details IDCO Episode Identifier [id number] IDCO Episode Date Time IDCO Episode Type Category Other IDCO Episode Vendor Type Category XANDER IDCO Episode Detection Interval Ventricular 952 ms IDCO Episode Duration 41 s IDCO Episode Detection And Therapy Details IDCO Episode Identifier [id number] IDCO Episode Date Time IDCO Episode Type Category Other IDCO Episode Vendor Type Category XANDER IDCO Episode Detection Interval Ventricular 968 ms IDCO Episode Duration 59 s IDCO Episode Detection And Therapy Details IDCO Episode Identifier [id number] IDCO Episode Date [...] IDCO Episode Statistic Recent Date Time End 20190620 IDCO Episode Statistic Type Category VT IDCO Episode Statistic Vendor Type Category VT IDCO Episode Statistic Recent Count 0 IDCO Episode Statistic Recent Date Time Start 20180408 IDCO Episode Statistic Recent Date Time End 20190620 IDCO Episode Statistic Type Category VT IDCO Episode Statistic Vendor Type Category VT-1 IDCO Episode Statistic Recent Count 0 IDCO Episode Statistic Recent Date Time Start 20180408 IDCO Episode Statistic Recent Date Time End 20190620 IDCO Episode Statistic Type Category Monitor IDCO Episode Statistic Vendor Type Category IDCO Episode Statistic Recent Count 0 IDCO Episode Statistic Recent Date Time Start 20180408 IDCO Episode Statistic Recent Date Time End 20190620 IDCO Episode Statistic Type Category Other IDCO Episode Statistic Vendor Type Category IDCO Episode Statistic Recent Count 0 IDCO Episode Statistic Recent Date Time Start 20180408 IDCO Episode Statistic Recent Date Time End 20190620 IDCO Episode Statistic Type Category VT IDCO Episode Statistic Vendor Type Category NSVT IDCO Episode Statistic Recent Count 293 IDCO Episode Statistic Recent Date Time Start 20180408 IDCO Episode Statistic Recent Date Time End 20190620 IDCO Episode Statistic Type Category AT/AF IDCO Episode Statistic Vendor Type Category ATR IDCO Episode Statistic Recent Count 87 IDCO Episode Statistic Recent Date Time Start 20180408 IDCO Episode Statistic Recent Date Time End 20190620 IDCO Albaro Setting AT Mode Switch Mode [...] E162 IDCO Implantable Pulse Generator Serial Number [id number] IDCO Implantable Pulse Generator Edi Specialist [employer] IDCO Implantable Pulse Generator Implant Date 20140110 IDCO Implantable Lead Model 4136 IDCO Implantable Lead Serial Number [id number] IDCO Implantable Lead Edi Specialist Guidant IDCO Implantable Lead Implant Date 20130421 IDCO Implantable Lead Polarity Type Bipolar Lead IDCO Implantable Lead Location Right Atrium IDCO Implantable Lead Model 0292 IDCO Implantable Lead Serial Number [id number] IDCO Implantable Lead Edi Specialist [employer] IDCO Implantable Lead Implant Date IDCO Implantable Lead Location Right Ventricle IDCO Lead Channel Measurements Date and Time Start 20180408 IDCO Lead Channel Measurements Date and Time End 20190619 IDCO Lead Channel Sensing Intrinsic Amplitude Mean 3.8 mV IDCO Lead Channel Sensing Polarity Bipolar IDCO Lead Channel Pacing Threshold Amplitude 0.7 V IDCO Lead Channel Pacing Threshold Pulse Width 0.5 ms IDCO Lead Channel Pacing Threshold Measurement Method [employer] Programmer Manual IDCO Lead Channel Pacing Threshold Polarity Bipolar IDCO Lead Channel Impedance Value 728 ohms IDCO Lead Channel Impedance Polarity Bipolar IDCO Lead Channel Measurements Date and Time Start 20180408 IDCO Lead Channel Measurements Date and Time End 20190619 IDCO Lead Channel Sensing Intrinsic Amplitude Mean 11.7 mV IDCO Lead Channel Sensing Polarity Bipolar IDCO Lead Channel Pacing Threshold Amplitude 0.7 V IDCO Lead Channel Pacing Threshold Pulse Width 0.5 ms IDCO Lead Channel Pacing Threshold Measurement Method [employer] Programmer Manual IDCO Lead Channel Pacing Threshold Polarity Bipolar IDCO Lead Channel Impedance Value 590 ohms IDCO Lead Channel Impedance Polarity Bipolar IDCO Lead High Voltage Channel Date Time 20190619 IDCO Lead High Voltage Channel Impedance 84 ohms IDCO Lead High Voltage Channel Measurement Type Low Voltage Pulse IDCO Statistic Date Time Start 20180408 IDCO Statistic Date Time End 20190620 IDCO Albaro Statistic Date Time Start 20180408 IDCO Albaro Statistic Date Time End 20190620 IDCO Albaro Statistic RA Percent Paced 1 % IDCO Albaro Statistic RV Percent Paced 3 % IDCO Therapy Statistic Recent Date Time Start 20180408 IDCO Therapy Statistic Recent Date Time End 20190620 IDCO Therapy Statistic Recent Shocks Delivered 0 IDCO Therapy Statistic Total Date Time Start 20140110 IDCO Therapy Statistic Total Date Time End 20190620 IDCO Therapy Statistic Total Shocks Delivered 2 IDCO Therapy Statistic Recent Shocks Aborted 0 IDCO Therapy Statistic Total Shocks Aborted 0 IDCO Therapy Statistic Recent ATP Delivered 0 IDCO Therapy Statistic Total ATP Delivered 1 IDCO Anatomical Region Laterality Modality Other 06/20/2019 5:33 PM EST Physician Cardiology IMPLANTABLE CARD IAC DEVICE documented in this encounter Visit Diagnoses Not on filedocumented in this encounter Care Teams Advisor Consultant Relationship Specialty Start Date End Date Dewayne Carrington MD [address] [place] [address] PCP - General 09/02/16 documented as of this encounter
--- OUTSIDE RECORDS SUMMARY | 2023-11-03 01:25 | XMS_ITS | Encounter Summary ---
[place] [address] Care Team Providers Care Neurosurgery Research Director Name Role Phone Dewayne Carrington MD Primary Care Provider [phone] Encounter Details Date Type Department Care Team (Late st Contact Info) Description 01/20/2019 Orders Only Cardiology at [address] [phone] Social History Tobacco Use Types Packs/Day Years [...] AM EDT Hospital Encounter [place] [address] Arrived documented as of this encounter Procedures Procedure Name Priority Date/Time Associated Diagnosis Comments CARDIAC DEVICE CHECK - REMOTE SCHEDULED Routine 01/20/2019 12:43 AM EDT documented in this encounter Results * Cardiac device check - Remote Scheduled (01/20/2019 12:43 AM EDT) Date Time Interrogation Session [id number] IDCO Type Interrogation Session Remote Scheduled IDCO Clinic Name [facility] IDCO Battery Date Time of Measurements [id number] IDCO Battery Status Beginning of Service IDCO Battery Remaining Longevity 78 mo IDCO Battery Remaining Percentage 90 % IDCO Capacitor Last Charge Date Time IDCO Capacitor Charge Time 10.8 s IDCO Capacitor Charge Type Reformation IDCO Capacitor Last Charge Date Time [id number] IDCO Capacitor Charge Time 3.8 s IDCO Capacitor Charge Energy 21 J IDCO Capacitor Charge Type Shock IDCO Episode Identifier [id number] IDCO Episode Date Time IDCO Episode Type Category Periodic EGM IDCO Episode Vendor Type Category APMRT IDCO Episode Detection And Therapy Details Presenting EGM [id number] Episode Date Time IDCO Episode Type Category Other IDCO Episode Vendor Type Category XANDER IDCO Episode Detection Interval Ventricular 952 ms IDCO Episode Duration 55 s IDCO Episode Detection And Therapy Details [id number] Episode Date Time IDCO Episode Type Category Other IDCO Episode Vendor Type Category XANDER IDCO Episode Detection Interval Ventricular 938 ms IDCO Episode Duration 54 s IDCO Episode Detection And Therapy Details [id number] Episode Date Time IDCO Episode Type Category Other IDCO Episode Vendor Type Category XANDER IDCO Episode Detection Interval Ventricular 938 ms IDCO Episode Duration 54 s IDCO Episode Detection And Therapy Details IDCO Episode Identifier IDCO Episode Date Time IDCO Episode Type Category VT IDCO Episode Vendor Type Category NSVT IDCO Episode Type Induced Flag NO IDCO Episode Detection Interval Ventricular 420 ms IDCO Episode Duration 6 s IDCO Episode Detection And Therapy Details NonSustV IDCO Episode Identifier IDCO Episode Date Time IDCO Episode Type Category VT IDCO Episode Vendor Type Category NSVT IDCO Episode Type Induced Flag NO IDCO Episode Detection Interval Ventricular 370 ms IDCO Episode Duration 5 s IDCO Episode Detection And Therapy Details NonSustV IDCO Episode Identifier IDCO Episode Date Time IDCO Episode Type Category VT IDCO Episode Vendor Type Category NSVT IDCO Episode Type Induced Flag NO IDCO Episode Detection Interval Ventricular 400 ms IDCO Episode Duration 6 s IDCO [...] Interval Ventricular 392 ms IDCO Episode Duration 88 s IDCO Episode Detection And Therapy Details NonSustV IDCO Episode Identifier IDCO Episode Date Time IDCO Episode Type Category VT IDCO Episode Vendor Type Category NSVT IDCO Episode Type Induced Flag NO IDCO Episode Detection Interval Ventricular 387 ms IDCO Episode Duration 6 s IDCO Episode Detection And Therapy Details NonSustV IDCO Episode Identifier IDCO Episode Date Time [id number] IDCO Episode Type Category VT IDCO Episode Vendor Type Category NSVT IDCO Episode Type Induced Flag NO IDCO Episode Detection Interval Ventricular 373 ms IDCO Episode Duration 8 s IDCO Episode Detection And Therapy Details NonSustV IDCO Episode Identifier [id number] IDCO Episode Date Time [id number] IDCO Episode Type Category Other IDCO Episode Vendor Type Category XANDER IDCO Episode Detection Interval Ventricular 896 ms IDCO Episode Duration 53 s IDCO Episode Detection And Therapy Details Q IDCO Episode Identifier IDCO Episode Date Time [id number] IDCO Episode Type Category VT IDCO Episode Vendor Type Category NSVT IDCO Episode Type Induced Flag NO IDCO Episode Detection Interval Ventricular 397 ms IDCO Episode Duration 6 s IDCO Episode Detection And Therapy Details NonSustV IDCO Episode Identifier IDCO Episode Date Time [id number] IDCO Episode Type Category VT IDCO Episode Vendor Type Category NSVT IDCO Episode Type Induced Flag NO IDCO Episode Detection Interval Ventricular 400 ms IDCO Episode Duration 11 s IDCO Episode Detection And Therapy Details NonSustV IDCO Episode Identifier IDCO Episode Date Time [id number] IDCO Episode Type Category VT IDCO Episode Vendor Type Category NSVT IDCO Episode Type Induced Flag NO IDCO Episode Detection Interval Ventricular 395 ms IDCO Episode Duration 12 s IDCO Episode Detection And Therapy Details NonSustV IDCO Episode Identifier [id number] IDCO Episode Date Time IDCO Episode Type Category Other IDCO Episode Vendor Type Category XANDER IDCO Episode Detection Interval Ventricular 896 ms IDCO Episode Duration 55 s IDCO Episode Detection And Therapy Details Q IDCO Episode Identifier [id number] IDCO Episode Date Time [id number] IDCO Episode Type Category Other IDCO Episode Vendor Type Category XANDER IDCO Episode Detection Interval Ventricular 938 ms IDCO Episode Duration 54 s IDCO Episode Detection And Therapy Details IDCO Episode Identifier [id number] IDCO Episode Date Time IDCO Episode Type Category Other IDCO Episode Vendor Type Category XANDER IDCO Episode Detection Interval Ventricular 1,034 ms IDCO Episode Duration 57 s IDCO Episode Detection And Therapy Details IDCO Episode Identifier [id number] IDCO Episode Date Time IDCO Episode Type Category Other IDCO Episode Vendor Type Category XANDER IDCO Episode Detection Interval Ventricular 909 ms IDCO Episode Duration 54 s IDCO Episode Detection And Therapy Details Q IDCO Episode Identifier [id number] IDCO Episode Date Time IDCO Episode Type Category Other IDCO Episode Vendor Type Category XANDER IDCO Episode Detection Interval Ventricular 1,017 ms IDCO Episode Duration 52 s IDCO Episode Detection And Therapy Details IDCO Episode Identifier [id number] IDCO Episode Date Time [id number] IDCO Episode Type Category Other IDCO Episode Vendor Type Category XANDER IDCO Episode Detection Interval Ventricular 1,000 ms IDCO Episode Duration 52 s IDCO Episode Detection And Therapy Details IDCO Episode Statistic Type Category VF IDCO Episode Statistic Vendor Type Category VF IDCO Episode Statistic Recent Count 0 IDCO Episode Statistic Recent Date Time Start [id number] IDCO Episode Statistic Recent Date Time End 20190120 IDCO Episode Statistic Type Category VT IDCO Episode Statistic Vendor Type Category VT IDCO Episode Statistic Recent Count 0 IDCO Episode Statistic Recent Date Time Start [id number] IDCO Episode Statistic Recent Date Time End 20190120 IDCO Episode Statistic Type Category VT IDCO Episode Statistic Vendor Type Category VT-1 IDCO Episode Statistic Recent Count 0 IDCO Episode Statistic Recent Date Time Start 20180408 IDCO Episode Statistic Recent Date Time End 20190120 IDCO Episode Statistic Type Category Monitor IDCO Episode Statistic Vendor Type Category IDCO Episode Statistic Recent Count 0 IDCO Episode Statistic Recent Date Time Start 20180408 IDCO Episode Statistic Recent Date Time End 20190120 IDCO Episode Statistic Type Category Other IDCO Episode Statistic Vendor Type Category IDCO Episode Statistic Recent Count 0 IDCO Episode Statistic Recent Date Time Start 20180408 IDCO Episode Statistic Recent Date Time End 20190120 IDCO Episode Statistic Type Category VT IDCO Episode Statistic Vendor Type Category NSVT IDCO Episode Statistic Recent Count 217 IDCO Episode Statistic Recent Date Time Start 20180408 IDCO Episode Statistic Recent Date Time End 20190120 IDCO Episode Statistic Type Category AT/AF IDCO Episode Statistic Vendor Type Category ATR IDCO Episode Statistic Recent Count 61 IDCO Episode Statistic Recent Date Time Start 20180408 IDCO Episode Statistic Recent Date Time End 20190120 IDCO Albaro Setting AT Mode Switch Mode [...] E162 IDCO Implantable Pulse Generator Serial Number [id number] IDCO Implantable Pulse Generator Director Of Corporate Sponsorships [employer] IDCO Implantable Pulse Generator Implant Date 20140110 IDCO Implantable Lead Model 4136 IDCO Implantable Lead Serial Number [id number] IDCO Implantable Lead Director Of Corporate Sponsorships Guidant IDCO Implantable Lead Implant Date 20130421 IDCO Implantable Lead Polarity Type Bipolar Lead IDCO Implantable Lead Location Right Atrium IDCO Implantable Lead Model 0292 IDCO Implantable Lead Serial Number [id number] IDCO Implantable Lead Director Of Corporate Sponsorships Weems Scientific IDCO Implantable Lead Implant Date IDCO Implantable Lead Location Right Ventricle IDCO Lead Channel Measurements Date and Time Start 20180408 IDCO Lead Channel Measurements Date and Time End 20190119 IDCO Lead Channel Sensing Intrinsic Amplitude Mean 3.0 mV IDCO Lead Channel Sensing Polarity Bipolar IDCO Lead Channel Pacing Threshold Amplitude 0.7 V IDCO Lead Channel Pacing Threshold Pulse Width 0.5 ms IDCO Lead Channel Pacing Threshold Measurement Method Seismograph Recorder Manual IDCO Lead Channel Pacing Threshold Polarity Bipolar IDCO Lead Channel Impedance Value 695 ohms IDCO Lead Channel Impedance Polarity Bipolar IDCO Lead Channel Measurements Date and Time Start 20180408 IDCO Lead Channel Measurements Date and Time End 20190119 IDCO Lead Channel Sensing Intrinsic Amplitude Mean 10.4 mV IDCO Lead Channel Sensing Polarity Bipolar IDCO Lead Channel Pacing Threshold Amplitude 0.7 V IDCO Lead Channel Pacing Threshold Pulse Width 0.5 ms IDCO Lead Channel Pacing Threshold Measurement Method Seismograph Recorder Manual IDCO Lead Channel Pacing Threshold Polarity Bipolar IDCO Lead Channel Impedance Value 530 ohms IDCO Lead Channel Impedance Polarity Bipolar IDCO Lead High Voltage Channel Date Time 20190119 IDCO Lead High Voltage Channel Impedance 81 ohms IDCO Lead High Voltage Channel Measurement Type Low Voltage Pulse IDCO Statistic Date Time Start 20180408 IDCO Statistic Date Time End 20190120 IDCO Albaro Statistic Date Time Start 20180408 IDCO Albaro Statistic Date Time End 20190120 IDCO Albaro Statistic RA Percent Paced 2 % IDCO Ablaro Statistic RV Percent Paced 2 % IDCO Therapy Statistic Recent Date Time Start 20180408 IDCO Therapy Statistic Recent Date Time End 20190120 IDCO Therapy Statistic Recent Shocks Delivered 0 IDCO Therapy Statistic Total Date Time Start 20140110 IDCO Therapy Statistic Total Date Time End 20190120 IDCO Therapy Statistic Total Shocks Delivered 2 IDCO Therapy Statistic Recent Shocks Aborted 0 IDCO Therapy Statistic Total Shocks Aborted 0 IDCO Therapy Statistic Recent ATP Delivered 0 IDCO Therapy Statistic Total ATP Delivered 1 IDCO Anatomical Region Laterality Modality Other 01/20/2019 12:4 3 AM EDT Physician Cardiology IMPLANTABLE CARD IAC DEVICE documented in this encounter Visit Diagnoses Not on filedocumented in this encounter Care Teams Neurosurgery Research Director Relationship Specialty Start Date End Date Dewayne Carrington MD [address] [place] [address] PCP - General 09/02/16 documented as of this encounter
--- OUTSIDE RECORDS SUMMARY | 2023-11-03 01:25 | XMS_ITS | Encounter Summary ---
[place] [address] Care Team Providers Care Nursery Worker Name Role Phone Dewayne Carrington MD Primary Care Provider Encounter Details Date Type Department Care Team ([facility] Contact Info) Description 01/26/2019 External Results Cardiology at [address] [phone] Dewayne Carrington MD [address] [place] [phone] Social History Tobacco Use Types Packs/Day Years [...] Upcoming Encounters Date Type Department Care Team ([facility] Contact Info) Description 12/18/2023 10:00 AM EDT Hospital Encounter Non-Invasive [place] [address] Arrived documented as of this encounter Procedures Procedure Name Priority Date/Time Associated Diagnosis Comments EP DEVICE SCAN Routine 01/20/2019 documented in this encounter Results * Scan Doc: EP Device (01/20/2019) Anatomical Region Laterality Modality Other Dewayne Carrington MD MEDIA MGR SCAN EXT O RDR/RSLT documented in this encounter Visit Diagnoses Not on filedocumented in this encounter Care Teams Nursery Worker Relationship Specialty Start Date End Date Dewayne Carrington MD [address] [place] [address] PCP - General 09/02/16 documented as of this encounter
--- OUTSIDE RECORDS SUMMARY | 2023-11-03 01:25 | XMS_ITS | Encounter Summary ---
[place] [address] Care Team Providers Care Collection Systems Administrator Name Role Phone Dewayne Carrington MD Primary Care Provider [phone] Encounter Details Date Type Department Care Team ([facility] Contact Info) Description 01/31/2019 External Results Cardiology at [address] [phone] Dewayne Carrington MD [address] [place] [phone] Social History Tobacco Use Types Packs/Day Years [...] AM EDT Hospital Encounter [place] [address] Arrived documented as of this encounter Procedures Procedure Name Priority Date/Time Associated Diagnosis Comments EP DEVICE SCAN Routine 01/13/2019 documented in this encounter Results * Scan Doc: EP Device (01/13/2019) Anatomical Region Laterality Modality Other Dewayne Carrington MD MEDIA MGR SCAN EXT O RDR/RSLT documented in this encounter Visit Diagnoses Not on filedocumented in this encounter Care Teams Collection Systems Administrator Relationship Specialty Start Date End Date Dewayne Carrington MD [address] [place] [address] PCP - General 09/02/16 documented as of this encounter
--- OUTSIDE RECORDS SUMMARY | 2023-11-03 01:26 | XMS_ITS | Encounter Summary ---
Author Organization [facility] [place] [address] Care Team Providers Care Information Technology Account Manager Name Role Phone Dewayne Carrington MD Primary Care Provider [phone] Reason for Referral * Diagnostic Test (Routine) - Closed Specialty Diagnoses / Procedures Referred By Contac t Referred To Contact Cardiology Diagnoses Coronary artery disease involving [place] coronary artery of [place] heart without angina pectoris Procedures Echocardiogram Transthoracic(Leb) Huy Butler MD [facility] [place] [address] [facility] [place] [address] Referral ID Status Reason Start Date Expiration Date V isits Requested Visits Authorized [id number] Closed Specialty Service Requested 10/01/2016 10/01/2017 1 1 Encounter Details Date Type Department Care Team (Late st Contact Info) Description 10/01/2016 Orders [place] [address] Huy Butler MD [facility] [place] [address] Coronary artery disease involving [place] coronary artery of [place] heart without angina pectoris Social History Tobacco Use Types Packs/Day Years [...] AM EDT Hospital Encounter Non-[place]vasive [place] [address] Arrived documented as of this encounter Results * ECHO COMPLETE W CONTRAST (11/06/2016 11:56 AM EDT) EF 49 HEARTLAB SYSTEM Anatomical Region Laterality Modality Other 11/06/2016 Narrative 11/06/2016 12:33 PM EDT Procedure: ?Transthoracic Echocardiogram Patient: ?SIMEON CHRISTIE P ?(Age): 1950(66y) Med Rec#: ? [id number] ?Sex: ?M ? Site Loc: ? [facility] ?Ht / Wt: ??185(cm)/91(kg) Pt. Loc: ?Echo Lab ?BSA: ?2.15 Study Date: ?? 11/06/2016 ?Pt. Type: Outpatient Tape: ? Referring: CAS Referring: Kit Self Reading: Huseyin Espinoza ([id number]) Snowboarder: Stef Hayden Diagnosis: *ICD-10-PCS Atherosclerotic heart disease of [place] coronary artery without angina pectoris (I25.10) CPT Codes: *Echo Full (86767) *Spectral Doppler (59740) *Color Doppler (31407) *Optison (36796YB) Rhythm: ? Paced rhythm BP: ? 115/72 SUMMARY: 1. The left ventricular chamber size is normal. There is mild septal hypertrophy of the left ventricle. ??Global left ventricular systolic function is mildly reduced. The quantitative left ventricular ejection fraction by biplane Paz's method is 49%. There are left ventricular segmental wall motion abnormalities present, as shown in the diagram below. ?? 2. The left atrium is not well visualized. 3. Right ventricular chamber size, wall thickness, and systolic function are within normal limits. A pacemaker wire is visualized in the right ventricle. The estimated pulmonary artery systolic pressure is 25 mmHg. 4. The aortic valve leaflets are mildly thickened. Mild (1+/4+) aortic valve regurgitation is present. 5. There is mild (1+/4+) mitral regurgitation present. 6. Compared to 01/06/2014, the described segmental wall motion abnormalities and mildly reduced LVEF may be new (however no contrast was given for the earlier study). Findings ? : Study Quality: ? Technically limited Left Ventricle: ? The left ventricular chamber size is normal. ?There is mild septal hypertrophy of the left ventricle. ?There is no evidence of LVOT obstruction. ?Global left ventricular systolic function is mildly reduced. ?The quantitative left ventricular ejection fraction by biplane Paz's method is 49%. ?There are left ventricular segmental wall motion abnormalities present, as shown in the diagram below. ?Doppler assessment is consistent with normal left sided filling pressure. ?The ??basal inferior, mid inferior, and ??apical inferior wall segments are hypokinetic (score 2). ?Overall wallmotion score index is ??1.19 Left Atrium: ? The left atrium is not well visualized. Right Ventricle: ? Right ventricular chamber size, wall thickness, and systolic function are within normal limits. ?A pacemaker wire is visualized in the right ventricle. ?The estimated pulmonary artery systolic pressure is 25 mmHg. Right Atrium: ? The right atrium is not well visualized. ?A pacemaker wire is visualized in the right atrium. Aortic Valve: ? The aortic valve is tricuspid. ?The aortic valve leaflets are mildly thickened. ?There is no evidence of aortic valve stenosis. ?Mild (1+/4+) aortic valve regurgitation is present. Mitral Valve: ? The mitral valve appears normal in structure and function. ?There is mild (1+/4+) mitral regurgitation present. Tricuspid Valve: ? The tricuspid valve appears normal in structure and function. ?There is trace tricuspid regurgitation present. Pulmonic Valve: ? The pulmonic valve appears normal in structure and function. Pericardium: ? The pericardium appears normal and there is no evidence of a pericardial effusion. Aorta: ? The aortic root is normal in size. ?The ascending aorta is normal in size. Pulmonary Artery: ? The main pulmonary artery appears normal. Venous: ? The inferior vena cava appears normal in size. ?There is a greater than 50% respiratory change in the inferior vena cava dimension. Misc: ? See remainder of report for additional findings. ?Two-dimensional echo, spectral Doppler and color Doppler performed. ?Optison contrast (one 3 ml vial) was used to enhance endocardial definition. Excess contrast was discarded. Chambers 2D ?Value ?Units (Range) ? IVSd (2D) ? 1.3 ?cm ? LVPWd (2D) ?0.7 ?cm ? IVS:LVPW ratio (2D) 2 ?ratio ? LVIDd (2D) ?5.2 ?cm ? LVIDs (2D) ?4.1 ?cm ? LVIDd (2D) index ?2.4 ?cm/m2 ? LVIDs (2D) index ?1.9 ?cm/m2 ? LV FS (2D) ?22 ? % ? EF Teichholz (2D) ?? 44 ? % ? Ao root diameter (2D3.1 ?cm (2.1 - 3.6) ? Ascending Ao ?3.4 ?cm (2 - 3.5) ? Volumes/Mass ?Value ?Units (Range) ? LA ESV BP (A/L) inde33.9 ? ml/m2 ? LA ESV SP 4CH (MOD) 71.8 ? ml ? LA ESV SP 2CH (MOD) 63.3 ? ml ? LV ESV SP 4CH (MOD) 59.8 ? ml ? LV ESV SP 2CH (MOD) 72.5 ? ml ? LV EDV BP ? 130.5 ?ml ? LV ESV BP ? 66.2 ? ml ? BP EF (MOD) ? 49 ? % ? LV mass (2D) ?191.7 ?g ? LV mass (2D) index ??89.2 ? g/m2 ? Diastolic/Systolic Function ?Value ?Units (Range) ? MV E-wave Vmax ?0.7 ?m/sec ? MV deceleration ypkc394.6 ?msec ? MV A-wave Vmax ?0.7 ?m/sec ? MV E:A ratio ?1 ?ratio ? LV septal e' Vmax ?? 0.1 ?m/sec ? LV lateral e' Vmax ??0.1 ?m/sec ? LV average e' Vmax ??0.1 ?m/sec ? LV E:e' septal ratio9.9 ?ratio ? LV E:e' lateral rati7.7 ?ratio ? LV average E:e' rati8.7 ?ratio ? Tricuspid Valve ?Value ?Units (Range) ? TR Vmax ? 2.3 ?m/sec ? TR peak gradient ?21.7 ? mmHg ? RAP ? 3 ?mmHg ? RVSP ?25 ? mmHg ? Measurement Trending Name ? 11/06/2016 ?01/06/2014 ? LV EDV BP ?130.53 LVIDd (2D) ? 5.22 LV ESV BP ?66.18 LVIDs (2D) ? 4.07 Wall Motion: Segment Name ?Rest ? Base-Anteroseptal ?? Normal ? Base-Anterior ? Normal ? Base-Anterolateral ??Normal ? Base-Posterolateral Normal ? Base-Inferior ? Hypokinetic ? Base-Inferoseptal ?? Normal ? Mid-Anteroseptal ?Normal ? Mid-Anterior ?Normal ? Mid-Anterolateral ?? Normal ? Mid-Posterolateral ??Normal ? Mid-Inferior ?Hypokinetic ? Mid-Inferoseptal ?Normal ? Kenner-Septal ? Normal ? Kenner-Anterior ? Normal ? Kenner-Lateral ?Normal ? Kenner-Inferior ? Hypokinetic ? Kenner-Tip ?Normal ? This report has been electronically signed by: Huseyin Espinoza MD ? 11/06/2016 12:33:49 Images reviewed and interpretation verified [facility] Cardiac Ultrasound Laboratory Procedure Note Huseyin Espinoza MD - 11/06/2016 Procedure: Transthoracic Echocardiogram Patient: SIMEON Gordon (Age): 1950(66y) Med Rec#: [id number] Sex: M Site Loc: [facility] Ht / Wt: 185(cm)/91(kg) Pt. Loc: Echo Lab BSA: 2.15 Study Date: 11/06/2016 Pt. Type: Outpatient Tape: Referring: CAS Referring: Kit Self Reading: Huseyin Espinoza ([id number]) Snowboarder: Stef Hayden Diagnosis: *ICD-10-PCS Atherosclerotic heart disease of [place] coronary artery without angina pectoris (I25.10) CPT Codes: *Echo Full (22462) *Spectral Doppler (81221) *Color Doppler (78713) *Optison (20115SB) Rhythm: Paced rhythm BP: 115/72 SUMMARY: 1. The left ventricular chamber size is normal. There is mild septal hypertrophy of the left ventricle. Global left ventricular systolic function is mildly reduced. The quantitative left ventricular ejection fraction by biplane Paz's method is 49%. There are left ventricular segmental wall motion abnormalities present, as shown in the diagram below. 2. The left atrium is not well visualized. 3. Right ventricular chamber size, wall thickness, and systolic function are within normal limits. A pacemaker wire is visualized in the right ventricle. The estimated pulmonary artery systolic pressure is 25 mmHg. 4. The aortic valve leaflets are mildly thickened. Mild (1+/4+) aortic valve regurgitation is present. 5. There is mild (1+/4+) mitral regurgitation present. 6. Compared to 01/06/2014, the described segmental wall motion abnormalities and mildly reduced LVEF may be new (however no contrast was given for the earlier study). Findings : Study Quality: Technically limited Left Ventricle: The left ventricular chamber size is normal. There is mild septal hypertrophy of the left ventricle. There is no evidence of LVOT obstruction. Global left ventricular systolic function is mildly reduced. The quantitative left ventricular ejection fraction by biplane Paz's method is 49%. There are left ventricular segmental wall motion abnormalities present, as shown in the diagram below. Doppler assessment is consistent with normal left sided filling pressure. The basal inferior, mid inferior, and apical inferior wall segments are hypokinetic (score 2). Overall wallmotion score index is 1.19 Left Atrium: The left atrium is not well visualized. Right Ventricle: Right ventricular chamber size, wall thickness, and systolic function are within normal limits. A pacemaker wire is visualized in the right ventricle. The estimated pulmonary artery systolic pressure is 25 mmHg. Right Atrium: The right atrium is not well visualized. A pacemaker wire is visualized in the right atrium. Aortic Valve: The aortic valve is tricuspid. The aortic valve leaflets are mildly thickened. There is no evidence of aortic valve stenosis. Mild (1+/4+) aortic valve regurgitation is present. Mitral Valve: The mitral valve appears normal in structure and function. There is mild (1+/4+) mitral regurgitation present. Tricuspid Valve: The tricuspid valve appears normal in structure and function. There is trace tricuspid regurgitation present. Pulmonic Valve: The pulmonic valve appears normal in structure and function. Pericardium: The pericardium appears normal and there is no evidence of a pericardial effusion. Aorta: The aortic root is normal in size. The ascending aorta is normal in size. Pulmonary Artery: The main pulmonary artery appears normal. Venous: The inferior vena cava appears normal in size. There is a greater than 50% respiratory change in the inferior vena cava dimension. Misc: See remainder of report for additional findings. Two-dimensional echo, spectral Doppler and color Doppler performed. Optison contrast (one 3 ml vial) was used to enhance endocardial definition. Excess contrast was discarded. Chambers 2D Value Units (Range) IVSd (2D) 1.3 cm LVPWd (2D) 0.7 cm IVS:LVPW ratio (2D) 2 ratio LVIDd (2D) 5.2 cm LVIDs (2D) 4.1 cm LVIDd (2D) index 2.4 cm/m2 LVIDs (2D) index 1.9 cm/m2 LV FS (2D) 22 % EF Teichholz (2D) 44 % Ao root diameter (2D3.1 cm (2.1 - 3.6) Ascending Ao 3.4 cm (2 - 3.5) Volumes/Mass Value Units (Range) LA ESV BP (A/L) inde33.9 ml/m2 LA ESV SP 4CH (MOD) 71.8 ml LA ESV SP 2CH (MOD) 63.3 ml LV ESV SP 4CH (MOD) 59.8 ml LV ESV SP 2CH (MOD) 72.5 ml LV EDV BP 130.5 ml LV ESV BP 66.2 ml BP EF (MOD) 49 % LV mass (2D) 191.7 g LV mass (2D) index 89.2 g/m2 Diastolic/Systolic Function Value Units (Range) MV E-wave Vmax 0.7 m/sec MV deceleration lxnk466.6 msec MV A-wave Vmax 0.7 m/sec MV E:A ratio 1 ratio LV septal e' Vmax 0.1 m/sec LV lateral e' Vmax 0.1 m/sec LV average e' Vmax 0.1 m/sec LV E:e' septal ratio9.9 ratio LV E:e' lateral rati7.7 ratio LV average E:e' rati8.7 ratio Tricuspid Valve Value Units (Range) TR Vmax 2.3 m/sec TR peak gradient 21.7 mmHg RAP 3 mmHg RVSP 25 mmHg Measurement Trending Name 11/06/2016 01/06/2014 LV EDV BP 130.53 LVIDd (2D) 5.22 LV ESV BP 66.18 LVIDs (2D) 4.07 Wall Motion: Segment Name Rest Base-Anteroseptal Normal Base-Anterior Normal Base-Anterolateral Normal Base-Posterolateral Normal Base-Inferior Hypokinetic Base-Inferoseptal Normal Mid-Anteroseptal Normal Mid-Anterior Normal Mid-Anterolateral Normal Mid-Posterolateral Normal Mid-Inferior Hypokinetic Mid-Inferoseptal Normal Kenner-Septal Normal Kenner-Anterior Normal Kenner-Lateral Normal Kenner-Inferior Hypokinetic Kenner-Tip Normal This report has been electronically signed by: Huseyin Espinoza MD 11/06/2016 12:33:49 Images reviewed and interpretation verified [facility] Cardiac Ultrasound Laboratory Kit Self MD ECHO ORDERABLES documented in this encounter Visit Diagnoses Diagnosis Coronary artery disease involving [place] coronary artery of [place] heart without angina pectoris Coronary artery disease involving [place] coronary artery of [place] heart without angina pectoris documented in this encounter Care Teams Information Technology Account Manager Relationship Specialty Start Date End Date Dewayne Carrington MD [address] [place] [address] PCP - General 09/02/16 documented as of this encounter
--- OUTSIDE RECORDS SUMMARY | 2023-11-03 01:26 | XMS_ITS | Encounter Summary ---
Author Organization [facility] Address [facility] [place] [address] Care Team Providers Care Fish Straightener Name Role Phone Dewayne Carrington MD Primary Care Provider [phone] Encounter Details Date Type Department Care Team ([facility] st Contact Info) Description 01/27/2017 3:00 PM EDT Office Visit Cardiology at [address] [id number] Kit Self MD [facility] [address] PAF (paroxysmal atrial fibrillation); Glucose intolerance (impaired glucose tolerance) Social History Tobacco Use Types Packs/Day Years [...] Sign Reading Time Taken Comments Blood Pressure 110/68 01/27/2017 2:54 PM EDT Pulse 86 01/27/2017 2:54 PM EDT Temperature - - Respiratory Rate - - Oxygen Saturation 98% 01/27/2017 2:54 PM EDT room air Inhaled Oxygen Concentration - - Weight 93.9 kg (207 lb) 01/27/2017 2:54 PM EDT Height 185.4 cm (6' 1) 01/27/2017 2:54 PM EDT Body Mass Index 27.31 01/27/2017 2:54 PM EDT documented in this encounter Progress Notes * Kit Self MD - 01/27/2017 3:00 PM EDT [facility] [place] [address] CARDIOLOGY OUTPATIENT FOLLOW-UP NOTE Marquez Hendrix [id number] PCP: Dewayne Carrington MD 01/27/2017 PRIMARY CARE PROVIDER: Dewayne Carrington MD PROBLEM LIST: Patient Active Problem List Diagnosis ??? ASCVD (arteriosclerotic cardiovascular disease) ?? Heart catheterization in [facility] in 2007 with placement of a stent in an unspecified vessel ?? Repeat heart catheterization in 2008 with placement of stents to both the LAD and circumflex ?? Followup heart catheterization in 2008 showing stable results in both vessels ?? Recurrent chest discomfort in a somewhat atypical pattern beginning fall ?? Nuclear stress test at [facility] in [place], [place] May 02, 2013 during which he developed left shoulder and arm discomfort during submaximal exercise on the treadmill and after which he was converted to a pharmacologic test; nuclear imaging showed ejection fraction of 45% with a partially reversible inferior defect ?? [place] [facility] [place]: normal left main, mild diffuse disease throughout the LAD with an 80% mid stenosis representing a restenosis lesion, mild diffuse disease in the proximal obtuse marginal branch, and mild diffuse disease throughout the right coronary artery; status post 3.0 X 12 mm JON to 80%mid-LAD lesion (in-stent restenosis) ?? Heart catheterization [facility] [place] 06, 2014 showing normal left main, hazy 50% mid LAD stenosis, mild diffuse disease throughout the circumflex, and moderate diffuse disease in the proximal RCA with a totally occluded distal RCA with brisk flow via bridging collaterals; fractional flow reserveon the LAD 0.85 ?? Nuclear stress test [facility] August 2016 reportedly showing a small area of inferior ischemia (final report pending) ?? Echo 11/06/16 showing inferior HK with EF 49%; no valvular disease ??? Typical atrial flutter ?? Occurred 06/08/13, lasted about 24 hours, and v rate about 80 (documented on ICD interrogation 07/18/14) ?? [id number] score = 3 ?? Patient initially reluctant to be anticoagulated as recommended ??? Atrial pacemaker lead displacement New finding at office follow up 04/10/2014 Plan lead reposition/replacement ??? ICD (implantable cardioverter-defibrillator), dual, in situ New Atrial electrode: Guidant Dextrus Model# 4126-53 cm Serial# [id number] ?? Bipolar, steroid-tipped, active-fixation IS-1 lead ?? [...] at 10 V: No Old Ventricular electrode: [place] [employer] [place] Model# 0292 Serial# [id number] ?? Bipolar, steroid-tipped, active-fixation DF-4 lead ?? [...] Atrial electrode: Guidant Dextrus Model# 4136 Serial# [id number] ?? Bipolar, steroid-tipped, active-fixation IS-1 lead ?? Access: Axillary vein ?? Location Removed 04/17/2014 ?? Implanted: 01/10/2014 Pulse generator: [place] [employer] Model# E162 Serial# [id number] ?? DDDR ICD ?? Location: Subcutaneous The [...] ??? T2DM (type 2 diabetes mellitus) ??? Esophageal reflux ??? IBS (irritable bowel syndrome) ??? Diabetes mellitus ??? HTN (hypertension) ??? Elevated cholesterol MEDICATIONS: Current Outpatient Prescriptions Medication Sig Dispense Refill ??? glipiZIDE (GLUCOTROL XL) 10 mg Tablet Extended Rel 24 hr Take 10 mg by mouth daily. ??? MAGNESIUM CARBONATE ORAL Take by mouth daily. ??? meTOPROLOL succinate (TOPROL-XL) 25 mg Tablet Sustained Release 24 hr Take 150 mg by mouth daily. PT reports taking 5 a day ??? pantoprazole (PROTONIX) 40 mg Tablet, Delayed Release (E.C.) Take 40 mg by mouth daily. ??? liraglutide (VICTOZA) 0.6 mg/0.1 mL (18 mg/3 mL) Pen Injector Inject subcutaneously daily. ??? atorvastatin (LIPITOR) 80 mg Tablet Take 80 mg by mouth daily. ??? aspirin 325 mg Tablet Take 325 mg by mouth daily. ??? vortioxetine (TRINTELLIX) 20 mg Tablet Take 20 mg by mouth daily. ??? CALCIUM CARBONATE/VITAMIN D3 (VITAMIN D-3 ORAL) Take 1 capsule by mouth daily. ??? traMADol (ULTRAM) 50 mg Tablet Take 50 mg by mouth daily. ??? lisinopril (PRINIVIL;ZESTRIL) 20 mg Tablet Take 1 tablet by mouth daily. 30 tablet 12 ??? zolpidem (AMBIEN) 10 mg tablet Take 10 mg by mouth nightly as needed. ??? multivitamin capsule Take 1 capsule by mouth daily. ??? LANCETS MISC by Misc.(Non-Drug; Combo Route) route. ??? lamotrigine (LAMICTAL) 100 mg tablet Take 100 mg by mouth daily. ??? alprazolam (XANAX XR) 3 mg 24 hr tablet Take 3 mg by mouth daily. ??? metformin (GLUCOPHAGE) 1,000 mg tablet Take 1,000 mg by mouth 2 times daily (with meals). ??? apixaban (ELIQUIS) 5 mg Tablet Take 1 tablet by mouth 2 times daily. (Patient not taking: Reported on 01/27/2017) 60 tablet 11 ??? nitroGLYcerin (NITROSTAT) 0.[address] 0.4 mg under the tongue every 5 minutes as needed. Reported on 09/30/2016 No current facility-administered medications for this visit. SUBJECTIVE: This 66-year-old man is seen for an early visit. He has known coronary artery disease and has an extensive history in this regard. He has received drug-eluting stents to his LAD and circumflex in 2008, another stent to the restenosis lesion in the LAD in 2013, and during heart catheterization later in 2013 was found to have an occluded distal RCA and a moderate lesion in the LAD. He also has atrial flutter, paroxysmal atrial fibrillation, and a history of sustained ventricular tachycardia for which he has an ICD. I last saw him in October with he said he was feeling fairly well. At that time they recommended that he start Eliquis (anticoagulation had long been recommended but had not yet been agreeable to the patient) and recommended that he reduce his aspirin to 81 mg daily. He was apparently seen in the emergency department at [facility] on 2016 with feelings of profound weakness which were somewhat episodic and accompanied by lightheadedness. He was in atrial fibrillation but at a controlled rate. His ICD was interrogated and this apparently showed multiple episodes of atrial fibrillation with rapid ventricular rate on that same day. There is some question about whether his device was reprogrammed. The emergency department note indicates that it was although the patient is insistent that no changes were made in the settings. He was advised to increase his metoprolol from 75 mg daily to 125 mg daily. He was given some samplesof Eliquis. He comes today indicating that he has had no further weakness or definitive knowledge that he has been back in atrial fibrillation. He has been free of chest pain. He said he was feeling lightheaded and wondered if he may be hypoglycemic. OBJECTIVE: Vital Signs: BP 110/68 Pulse 86 Ht 185.4 cm (6' 1) Wt 93.9 kg (207 lb) SpO2 98% Comment: room air BMI 27.31 kg/m2 Physical Exam: On examination today he appeared in no acute distress. His vital signs are summarized above. Neck was without JVD. His lungs were clear. His heart exam revealed a regular rhythm without murmurs, rubs, or gallops. His abdomen was soft and nontender. He was nonedematous. ICD interrogation: This shows that his last episode of atrial fibrillation was on January 19, 2017. He has had none since. Over 7 hours was noted on January 19, 2017. He shows rare momentary times in which his heart rate gets in the 140-150 range but this is lasting only seconds. ASSESSMENT: 1. Paroxysmal atrial fibrillation: This continues to occur. It is not lasting long enough to trigger his defibrillator. I recommended no change in his device programming. He is willing to try the newer oral anticoagulant but needs prior approval. He came into any unnecessary information I will try to work on that in the next 24 hours. 2. Atherosclerotic cardiovascular disease: He is describing no anginal symptoms at this time PLAN: 1. No change in medications 2. Work on prior authorization for Eliquis 3. Cardiology follow-up in 1 month documented in this encounter Plan of Treatment Upcoming Encounters Date Type Department Care Team (Late st Contact Info) Description 12/18/2023 10:00 AM EDT Hospital Encounter Non[place] [address] Arrived Scheduled Orders Name Type Priority Associated Diagnoses Orde r Schedule EKG 12 Lead ECG Routine PAF (paroxysmal atrial fibrillation) Ordered: 01/27/2017 documented as of this encounter Procedures Procedure Name Priority Date/Time Associated Diagnosis Comments POCT FINGERSTICK GLUCOSE STAT 01/27/2017 Glucose intolerance (impaired glucose tolerance) documented in this encounter Results * POCT Fingerstick Glucose (01/27/2017) POC Glucose 184 60 - 199 mg/dl Kit name poct Kit Lot# [id number] 01/27/2017 Kit Self MD POINT OF CARE TEST O RDERABLES documented in this encounter Visit Diagnoses Diagnosis PAF (paroxysmal atrial fibrillation) Atrial fibrillation Glucose intolerance (impaired glucose tolerance) Impaired glucose tolerance test documented in this encounter Care Teams Fish Straightener Relationship Specialty Start Date End Date Dewayne Carrington MD [address] [place] [id number] PCP - General 09/02/16 documented as of this encounter
--- OUTSIDE RECORDS SUMMARY | 2023-11-03 01:26 | XMS_ITS | Encounter Summary ---
Author Organization [place] [address] Care Team Providers Care Property Field Adjuster Name Role Phone Dewayne Carrington MD Primary Care Provider [phone] Reason for Visit * Reason Onset Date Comments Medication Refill 03/03/2017 Encounter Details Date Type Department Care Team (Late st Contact Info) Description 03/03/2017 Refill Cardiology at [address] [phone] Kit Self MD [facility] [place] [address] Medication Refill Social History Tobacco Use Types [...] AM EDT Hospital Encounter Non-[place] [phone] Arrived documented as of this encounter Visit Diagnoses Not on filedocumented in this encounter Care Teams Property Field Adjuster Relationship Specialty Start Date End Date Dewayne Carrington MD [address] [place] [address] PCP - General 09/02/16 documented as of this encounter
--- OUTSIDE RECORDS SUMMARY | 2023-11-03 01:26 | XMS_ITS | Encounter Summary ---
Author Organization [facility] [place] [address] Care Team Providers Care Corn Chip Maker Name Role Phone Dewayne Carrington MD Primary Care Provider [phone] Encounter Details Date Type Department Care Team ([facility] st Contact Info) Description 09/30/2016 3:00 PM EDT Office Visit Cardiology at [address] [phone] Chante Robertson RN Sustained VT (ventricular tachycardia) Social History [...] as of this encounter Progress Notes * Chante Robertson RN - 09/30/2016 3:00 PM EDT Images from the original note were not included. Clinical Electrophysiology Device Service Note Marquez Hendrix is a 66 y.o. male who presents today in the clinic for routine ICD programming evaluation and appointment with Dr Self. Dr Self recommended once again he consider anticoagulation therapy to prevent stroke and a repeat echo. He was going to consider the anticoagulationafter reviewing his insurance coverage on coumadin alternatives. 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 On 04/17/2014 he underwent an atrial lead revision for lead dislodgement. Previous device interrogations have yielded small burden of asymptomatic atrial flutter, generally <1 hr in duration. Patient remains resistant to begin anticoagulation. Threshing Machine Operator: Kit Self MD PCP: Dewayne Carrington MD Device Info: New Atrial electrode: Guidant Dextrus Model# 4126-53 cm Serial# [id number], implanted 04/17/2014 ?? Bipolar, steroid-tipped, active-fixation IS-1 lead ?? Access: Axillary vein ?? Location Right atrial appendage Old Ventricular electrode: [employer] [place] Model# 0292 Serial# [id number] ?? Bipolar, steroid-tipped, active-fixation DF-4 lead ?? Access: Axillary vein ?? Location: Right ventricular apex ?? Implanted: 01/10/2014 Pulse generator: [employer] Incepta Model# E162 Serial# [id number] ?? DDDR ICD ?? Location: Subcutaneous Tachy settings: VF 220 bpm; ATP, 31j, 41j x 7 VT 180 bpm; Scan, 31j, 41j x 5 VT-1 155 bpm; Scan, RampScan, 0.9j, 11j, 41j x 3 [place]baro settings: DDDR 55/130/130, Rythmiq enabled Atrial lead impedance: 698 ohms Right ventricular lead impedance: 567 ohms RV shock impedance: 88 ohms P wave: 6.1 mV R wave: 10.1 mV Atrial capture threshold: 1.1 V @ 0.5 ms Right ventricular capture threshold: 0.6 V at 0.5 ms Underlying rhythm: SR 60-64 bpm Heart rate histograms: Reasonable distribution Pacing percentages: AP 15%; CONTROL PANEL OPERATOR CRUDE UNIT <1% Mode switch episodes: A burden of <1% since last reset 01/14/16 . 34 episodes <1 minute and 17 lasting 1 minute to <1 hour and 5 episodes lasting 1 hour to 24 hours.The Longest event was 5 hr and 30 minutes. No EGMs nor further data with specific dates of the longer events. AF/Afl was reveiwed with the patient and a print out of the arrhythmia log was given to the fellow working with Dr Ning ashley. Monitored events: 116 Non-sustained events since 01/14/2016, EGMs consistent with brief non-sustained VT as seen before at rates 159-170 bpm. An episode lasting 18 and 10 Seconds 07/11/16 did not have an Egm's . Treated events: None. VT at 170 bpm, no therapy 04/13/16 (apparently no electrogram). Battery voltage: ANN, est 9 years remaining Charge time: 10.4 sec 07/06/2016 Incision assessment: L chest no issues I have reviewed the programming printouts, and the device is functioning normally. Reprogramming: Iterative changes to assess device function Plan: Latitude 3 mos, RTC 6 mos. Edy Berry MD Provider: CHANTE ROBERTSON, NAHUN Attending: Dr. Berry documented in this encounter Plan of Treatment Upcoming Encounters Date Type Department Care Team (Late st Contact Info) Description 12/18/2023 10:00 AM EDT Hospital Encounter Non-Invasive [place] [address] Arrived documented as of this encounter Visit Diagnoses Diagnosis Sustained VT (ventricular tachycardia) Paroxysmal ventricular tachycardia documented in this encounter Care Teams Corn Chip Maker Relationship Specialty Start Date End Date Dewayne Carrington MD [address] [place] [address] PCP - General 09/02/16 documented as of this encounter
--- OUTSIDE RECORDS SUMMARY | 2023-11-03 01:26 | XMS_ITS | Encounter Summary ---
Author Organization [facility] Address [facility] [place] [address] Care Team Providers Care Insurance Marketing Rep Name Role Phone Dewayne Carrington MD Primary Care Provider [phone] Encounter Details Date Type Department Care Team (Latest Contact Info) Description 03/03/2017 2:40 PM EST Office Visit Cardiology at [address] [phone] Kit Self MD [facility] [address] PAF (paroxysmal atrial fibrillation); ASCVD (arteriosclerotic cardiovascular disease) Social History Tobacco Use Types Packs/Day Years [...] Sign Reading Time Taken Comments Blood Pressure 115/65 03/03/2017 2:12 PM EST Pulse 88 03/03/2017 2:12 PM EST Temperature - - Respiratory Rate - - Oxygen Saturation 95% 03/03/2017 2:12 PM EST Inhaled Oxygen Concentration - - Weight 93.9 kg (207 lb) 03/03/2017 2:12 PM EST Height 185.4 cm (6' 1) 03/03/2017 2:12 PM EST Body Mass Index 27.31 03/03/2017 2:12 PM EST documented in this encounter Progress Notes * Kit Self MD - 03/03/2017 2:40 PM EST [facility] [place] [phone] CARDIOLOGY OUTPATIENT FOLLOW-UP NOTE Marquez Hendrix [phone] PCP: Dewayne Carrington MD 03/03/2017 PRIMARY CARE PROVIDER: Dewayne Carrington MD PROBLEM LIST: Patient Active Problem List Diagnosis ??? ASCVD (arteriosclerotic cardiovascular disease) ?? Heart catheterization in [facility] in 2007 with placement of a stent in an unspecified vessel ?? Repeat heart catheterization in 2008 with placement of stents to both the LAD and circumflex ?? Followup heart catheterization in 2008 showing stable results in both vessels ?? Recurrent chest discomfort in a somewhat atypical pattern beginning fall ?? Nuclear stress test at [facility] in [place], [place] May 02, 2013 during which he developed left shoulder and arm discomfort during submaximal exercise on the treadmill and after which he was converted to a pharmacologic test; nuclear imaging showed ejection fraction of 45% with a partially reversible inferior defect ?? [place] [facility] [place]13[place]: normal left main, mild diffuse disease throughout the LAD with an 80% mid stenosis representing a restenosis lesion, mild diffuse disease in the proximal obtuse marginal branch, and mild diffuse disease throughout the right coronary artery; status post 3.0 X 12 mm JON to 80%mid-LAD lesion (in-stent restenosis) ?? Heart catheterization [facility] January 06, 2014 showing normal left main, hazy 50% mid LAD stenosis, mild diffuse disease throughout the circumflex, and moderate diffuse disease in the proximal RCA with a totally occluded distal RCA with brisk flow via bridging collaterals; fractional flow reserveon the LAD 0.85 ?? Nuclear stress test [facility] August 2016 reportedly showing a small area of inferior ischemia (final report pending) ?? Echo 11/06/16 showing inferior HK with EF 49%; no valvular disease ??? Typical atrial flutter ?? Occurred 06/08/13, lasted about 24 hours, and v rate about 80 (documented on ICD interrogation 07/18/14) ?? DOCHT1Sohc score = 3 ?? Patient initially reluctant to be anticoagulated as recommended ??? Atrial pacemaker lead displacement New finding at office follow up 04/10/2014 Plan lead reposition/replacement ??? ICD (implantable cardioverter-defibrillator), dual, in situ New Atrial electrode: Guidant Dextrus Model# 4126-53 cm Serial# [id number] ?? Bipolar, steroid-tipped, active-fixation IS-1 lead ?? [...] at 10 V: No Old Ventricular electrode: [employer] [place] Model# 0292 Serial# [id number] ?? Bipolar, steroid-tipped, active-fixation DF-4 lead ?? [...] Atrial electrode: Guidant Dextrus Model# 4136 Serial# [id number] ?? Bipolar, steroid-tipped, active-fixation IS-1 lead ?? Access: Axillary vein ?? Location Removed 04/17/2014 ?? Implanted: 01/10/2014 Pulse generator: [employer] Incepta Model# E162 Serial# [id number] ?? DDDR ICD ?? Location: Subcutaneous The [...] Prescriptions Medication Sig Dispense Refill ??? glipiZIDE (GLUCOTROL) 5 mg Tablet Take 5 mg by mouth daily. ??? MAGNESIUM CARBONATE ORAL Take 400 mg by mouth 2 times daily. ??? meTOPROLOL succinate (TOPROL-XL) 25 mg [...] by mouth daily. 30 tablet 12 ??? multivitamin capsule Take 1 capsule by mouth daily. ??? LANCETS MISC by Misc.(Non-Drug; Combo Route) route. ??? lamotrigine (LAMICTAL) 100 mg tablet Take 200 mg by mouth daily. ??? alprazolam (XANAX XR) 3 mg 24 hr tablet Take 3 mg by mouth daily. ??? metformin (GLUCOPHAGE) 1,000 mg tablet Take 1,000 mg by mouth 2 times daily (with meals). ??? apixaban (ELIQUIS) 5 mg Tablet Take 1 tablet by mouth 2 times daily. (Patient not taking: Reported on 01/27/2017) 60 tablet 11 ??? zolpidem (AMBIEN) 10 mg tablet Take 10 mg by mouth nightly as needed. ??? nitroGLYcerin (NITROSTAT) 0.[address] 0.4 mg under the tongue every 5 minutes as needed. Reported on 09/30/2016 No current facility-administered medications for this visit. SUBJECTIVE: This 66-year-old man comes for follow-up visit. He has a coronary artery disease, and ischemic cardiomyopathy with his last ejection fraction being 49%, and an ICD. He has recently been noted to have episodes of atrial fibrillation as demonstrated by ICD interrogations. He has been slowto agree to anticoagulation and since he agreed his insurance company has not provided it given theneed for prior authorization. He comes for routine follow-up visit today and says that he is doing okay. He has been a bit tired and feeling lazy the last few days. Otherwise he is free of exertional dyspnea or chest pain. OBJECTIVE: Vital Signs: BP 115/65 (BP Location (NBP): Left arm, Patient Position: Sitting, BP Cuff Sizes: Adult (25-34 cm)) Pulse 88 Ht 185.4 cm (6' 1) Wt 93.9 kg (207 lb) SpO2 95% BMI 27.31 kg/m2 Physical Exam: On exam he appeared in good health and spirits. Vital signs as documented. Skin warmand dry and without overt rashes. Neck without JVD. Lungs clear. Heart exam notable for regular rhythm, normal sounds and absence of murmurs, rubs or gallops. Abdomen unremarkable and without evidence of organomegally, masses, or abdominal aortic enlargement. Extremities non-edematous. ASSESSMENT: 1. ASCVD 2. Mild ischemic cardiomyopathy 3. Paroxysmal atrial fibrillation He continues to be interested in anticoagulation but needs a prior authorization before he can start Eliquis. PLAN: 1. Continue current medications 2. Work on prior authorization for Eliquis 3. Cardiology follow-up in 6 months documented in this encounter Plan of Treatment Upcoming Encounters Date Type Department Care Team (Late st Contact Info) Description 12/18/2023 10:00 AM EDT Hospital Encounter [place] [phone] Arrived documented as of this encounter Visit Diagnoses Diagnosis PAF (paroxysmal atrial fibrillation) Atrial fibrillation ASCVD (arteriosclerotic cardiovascular disease) Unspecified cardiovascular disease documented in this encounter Care Teams Insurance Marketing Rep Relationship Specialty Start Date End Date Dewayne Carrington MD [address] [place] [address] PCP - General 09/02/16 documented as of this encounter
--- OUTSIDE RECORDS SUMMARY | 2023-11-03 01:26 | XMS_ITS | Encounter Summary ---
Author Organization [facility] Address [facility] [address] Care Team Providers Care Supervisor Asbestos Textile Name Role Phone Dewayne Carrington MD Primary Care Provider [phone] Encounter Details Date Type Department Care Team (Late st Contact Info) Description 09/03/2016 Telephone Cardiology at [address] [phone] Gisselle Sutherland RN Social History Tobacco Use Types Packs/Day [...] encounter Miscellaneous Notes * Telephone Encounter - Gisselle Sutherland RN - 09/03/2016 4:22 PM EDT He called to report to Dr. Self that he had been seen in the [facility] ED last night. Had a stress test on Friday 09/01. After the test he was upset about stuff that was happening at the apartment. Didn't sleep Thursday night. Yesterday he was very active, didn't feel well, jacked up BP went up to 163/110. Sounds and lights made him feel worse, pressure in his head. [place] like his ICD might fire. In the ED he reports everything checked out OK. Had labs, EKG, brain scan. They did not have a junior programmer to check ICD. He has sent a remote download to us. Does not have result of stress test yet. Feels better today. BP 135/82 HR 61. Noon 126/75 HR 61. Reports being faxed. documented in this encounter Plan of Treatment Upcoming Encounters Date Type Department Care Team (Late st Contact Info) Description 12/18/2023 10:00 AM EDT Hospital Encounter Non-Invasive [place] [address] Arrived documented as of this encounter Visit Diagnoses Not on filedocumented in this encounter Care Teams Supervisor Asbestos Textile Relationship Specialty Start Date End Date Dewayne Carrington MD [address] [place] [address] PCP - General 09/02/16 documented as of this encounter
--- OUTSIDE RECORDS SUMMARY | 2023-11-03 01:26 | XMS_ITS | Encounter Summary ---
[place] [address] Care Team Providers Care Zoning Administrator Name Role Phone Dewayne Carrington MD Primary Care Provider [phone] Reason for Visit * Reason Onset Date Comments Medication Problem 03/10/2017 Encounter Details Date Type Department Care Team (Late st Contact Info) Description 03/10/2017 Refill Cardiology at [address] [phone] Rosanna Morrow market risk specialist Problem Social History Tobacco Use Types Packs/Day Years [...] encounter Miscellaneous Notes * Telephone Encounter - Rosanna Morrow RN - 03/10/2017 1:29 PM EST Patient calling to ask if he should be taking his 325 mg aspirin along with his Xarelto 20 mg dailythat he is going to be starting. Note to Dr. Self for advisement. Per Dr. Self, patient should decrease his aspirin dose to 81 mg daily . Pt informed and verbalized understanding. documented in this encounter Plan of Treatment Upcoming Encounters Date Type Department Care Team (Late st Contact Info) Description 12/18/2023 10:00 AM EDT Hospital Encounter Non-Invasive [place] [address] Arrived documented as of this encounter Visit Diagnoses Not on filedocumented in this encounter Care Teams Zoning Administrator Relationship Specialty Start Date End Date Dewayne Carrington MD [address] [place] [address] PCP - General 09/02/16 documented as of this encounter
--- OUTSIDE RECORDS SUMMARY | 2023-11-03 01:26 | XMS_ITS | Encounter Summary ---
[place] [address] Care Team Providers Care Wood And Hardware Outfitter Name Role Phone Dewayne Carrington MD Primary Care Provider [phone] Encounter Details Date Type Department Care Team (Late st Contact Info) Description 07/07/2017 Orders Only Cardiology at [address] [phone] Social History Tobacco Use Types Packs/Day Years [...] AM EDT Hospital Encounter [place] [address] Arrived documented as of this encounter Procedures Procedure Name Priority Date/Time Associated Diagnosis Comments CARDIAC DEVICE CHECK - REMOTE SCHEDULED Routine 07/07/2017 12:42 AM EDT documented in this encounter Results * Cardiac device check - Remote Scheduled (07/07/2017 12:42 AM EDT) Date Time Interrogation Session [id number] IDCO Type Interrogation Session Remote Scheduled IDCO Clinic Name [facility] IDCO Battery Date Time of Measurements IDCO Battery Status Beginning of Service IDCO Battery Remaining Longevity 96 mo IDCO Battery Remaining Percentage 100 % IDCO Capacitor Last Charge Date Time IDCO Capacitor Charge Time 10.5 s IDCO Capacitor Charge Type Reformation IDCO Capacitor Last Charge Date Time [id number] IDCO Capacitor Charge Time 3.8 s IDCO Capacitor Charge Energy 21 J IDCO Capacitor Charge Type Shock IDCO Episode Identifier APM-24 IDCO Episode Date Time IDCO Episode Type Category Periodic EGM IDCO Episode Vendor Type Category APMRT IDCO Episode Detection And Therapy Details Presenting EGM IDCO Episode Identifier IDCO Episode Date Time IDCO Episode Type Category Other IDCO Episode Vendor Type Category XANDER IDCO Episode Detection Interval Ventricular 741 ms IDCO Episode Duration 43 s IDCO Episode Detection And Therapy Details IDCO Episode Identifier IDCO Episode Date Time [id number] IDCO Episode Type Category Other IDCO Episode Vendor Type Category XANDER IDCO Episode Detection Interval Ventricular 759 ms IDCO Episode Duration 45 s IDCO Episode Detection And Therapy Details IDCO Episode Identifier IDCO Episode Date Time [id number] IDCO Episode Type Category Other IDCO Episode Vendor Type Category XANDER IDCO Episode Detection Interval Ventricular 750 ms IDCO Episode Duration 43 s IDCO Episode Detection And Therapy Details IDCO Episode Identifier IDCO Episode Date Time [id number] IDCO Episode Type Category Other IDCO Episode Vendor Type Category XANDER IDCO Episode Detection Interval Ventricular 750 ms IDCO Episode Duration 44 s IDCO Episode Detection And Therapy Details IDCO Episode Identifier IDCO Episode Date Time [id number] IDCO Episode Type Category Other IDCO Episode Vendor Type Category XANDER IDCO Episode Detection Interval Ventricular 822 ms IDCO Episode Duration 51 s IDCO Episode Detection And Therapy Details IDCO Episode Identifier IDCO Episode Date Time [id number] IDCO Episode Type Category Other IDCO Episode Vendor Type Category XANDER IDCO Episode Detection Interval Ventricular 741 ms IDCO Episode Duration 121 s IDCO Episode Detection And Therapy Details IDCO Episode Identifier IDCO Episode Date Time IDCO Episode Type Category Other IDCO Episode Vendor Type Category XANDER IDCO Episode Detection Interval Ventricular 723 ms IDCO Episode Duration 39 s IDCO Episode Detection And Therapy Details IDCO Episode Identifier IDCO Episode Date Time IDCO Episode Type Category Other IDCO Episode Vendor Type Category XANDER IDCO Episode Detection Interval Ventricular 769 ms IDCO Episode Duration 47 s IDCO Episode Detection And Therapy Details IDCO Episode Identifier IDCO Episode Date Time IDCO Episode Type Category Other IDCO Episode Vendor Type Category XANDER IDCO Episode Detection Interval Ventricular 789 ms IDCO Episode Duration 42 s IDCO Episode Detection And Therapy Details IDCO Episode Identifier IDCO Episode Date Time IDCO Episode Type Category Other IDCO Episode Vendor Type Category XANDER IDCO Episode Detection Interval Ventricular 714 ms IDCO Episode Duration 41 s IDCO Episode Detection And Therapy Details IDCO Episode Identifier V-347 IDCO Episode Date Time IDCO Episode Type Category VT IDCO Episode Vendor Type Category NSVT IDCO Episode Type Induced Flag NO IDCO Episode Detection Interval Ventricular 380 ms IDCO Episode Duration 25 s IDCO Episode Detection And Therapy Details NonSustV IDCO Episode Identifier ATR-167 IDCO Episode Date Time IDCO Episode Type Category AT/AF IDCO Episode Vendor Type Category ATR IDCO Episode Detection Interval Atrial 245 ms IDCO Episode Duration 142 s IDCO Episode Detection And Therapy Details ATR IDCO Episode Identifier ATR-166 IDCO Episode Date Time IDCO Episode Type Category AT/AF IDCO Episode Vendor Type Category ATR IDCO Episode Detection Interval Atrial 245 ms IDCO Episode Duration 75 s IDCO Episode Detection And Therapy Details ATR IDCO Episode Identifier ATR-165 IDCO Episode Date Time IDCO Episode Type Category AT/AF IDCO Episode Vendor Type Category ATR IDCO Episode Detection Interval Atrial 263 ms IDCO Episode Duration 77 s IDCO Episode Detection And Therapy Details ATR IDCO Episode Identifier ATR-164 IDCO Episode Date Time [id number] IDCO Episode Type Category AT/AF IDCO Episode Vendor Type Category ATR IDCO Episode Detection Interval Atrial 222 ms IDCO Episode Duration 65 s IDCO Episode Detection And Therapy Details ATR IDCO Episode Identifier V-346 IDCO Episode Date Time [id number] IDCO Episode Type Category VT IDCO Episode Vendor Type Category NSVT IDCO Episode Type Induced Flag NO IDCO Episode Detection Interval Ventricular 373 ms IDCO Episode Duration 8 s IDCO Episode Detection And Therapy Details NonSustV IDCO Episode Identifier V-345 IDCO Episode Date Time [id number] IDCO Episode Type Category VT IDCO Episode Vendor Type Category NSVT IDCO Episode Type Induced Flag NO IDCO Episode Detection Interval Ventricular 359 ms IDCO Episode Duration 7 s IDCO Episode Detection And Therapy Details NonSustV IDCO Episode Identifier ATR-163 IDCO Episode Date Time [id number] IDCO Episode Type Category AT/AF IDCO Episode Vendor Type Category ATR IDCO Episode Detection Interval Atrial 252 ms IDCO Episode Duration 73 s IDCO Episode Detection And Therapy Details ATR IDCO Episode Identifier ATR-162 IDCO Episode Date Time [id number] IDCO Episode Type Category AT/AF IDCO Episode Vendor Type Category ATR IDCO Episode Detection Interval Atrial 258 ms IDCO Episode Duration 91 s IDCO Episode Detection And Therapy Details ATR IDCO Episode Identifier V-344 IDCO Episode Date Time [id number] IDCO Episode Type Category VT IDCO Episode Vendor Type Category NSVT IDCO Episode Type Induced Flag NO IDCO Episode Detection Interval Ventricular 368 ms IDCO Episode Duration 6 s IDCO Episode Detection And Therapy Details NonSustV IDCO Episode Identifier ATR-161 IDCO Episode Date Time [id number] IDCO Episode Type Category AT/AF IDCO Episode Vendor Type Category ATR IDCO Episode Detection Interval Atrial 256 ms IDCO Episode Duration 2,512 s IDCO Episode Detection And Therapy Details ATR IDCO Episode Identifier ATR-160 IDCO Episode Date Time [id number] IDCO Episode Type Category AT/AF IDCO Episode Vendor Type Category ATR IDCO Episode Detection Interval Atrial 233 ms IDCO Episode Duration 317 s IDCO Episode Detection And Therapy Details ATR IDCO Episode Identifier V-343 IDCO Episode Date Time [id number] IDCO Episode Type Category VT IDCO Episode Vendor Type Category NSVT IDCO Episode Type Induced Flag NO IDCO Episode Detection Interval Ventricular 357 ms IDCO Episode Duration 8 s IDCO Episode Detection And Therapy Details NonSustV IDCO Episode Identifier V-342 IDCO Episode Date Time [id number] IDCO Episode Type Category VT IDCO Episode Vendor Type Category NSVT IDCO Episode Type Induced Flag NO IDCO Episode Detection Interval Ventricular 364 ms IDCO Episode Duration 9 s IDCO Episode Detection And Therapy Details NonSustV IDCO Episode Identifier V-341 IDCO Episode Date Time [id number] IDCO Episode Type Category VT IDCO Episode Vendor Type Category NSVT IDCO Episode Type Induced Flag NO IDCO Episode Detection Interval Ventricular 373 ms IDCO Episode Duration 8 s IDCO Episode Detection And Therapy Details NonSustV IDCO Episode Identifier V-340 IDCO Episode Date Time [id number] IDCO Episode Type Category VT IDCO Episode Vendor Type Category NSVT IDCO Episode Type Induced Flag NO IDCO Episode Detection Interval Ventricular 359 ms IDCO Episode Duration 7 s IDCO Episode Detection And Therapy Details NonSustV IDCO Episode Identifier V-339 IDCO Episode Date Time [id number] IDCO Episode Type Category VT IDCO Episode Vendor Type Category NSVT IDCO Episode Type Induced Flag NO IDCO Episode Detection Interval Ventricular 368 ms IDCO Episode Duration 8 s IDCO Episode Detection And Therapy Details NonSustV IDCO Episode Identifier V-338 IDCO Episode Date Time [id number] IDCO Episode Type Category VT IDCO Episode Vendor Type Category NSVT IDCO Episode Type Induced Flag NO IDCO Episode Detection Interval Ventricular 353 ms IDCO Episode Duration 12 s IDCO Episode Detection And Therapy Details NonSustV IDCO Episode Identifier ATR-159 IDCO Episode Date Time IDCO Episode Type Category AT/AF IDCO Episode Vendor Type Category ATR IDCO Episode Detection Interval Atrial 243 ms IDCO Episode Duration 24 s IDCO Episode Detection And Therapy Details ATR IDCO Episode Identifier ATR-158 IDCO Episode Date Time [id number] IDCO Episode Type Category AT/AF IDCO Episode Vendor Type Category ATR IDCO Episode Detection Interval Atrial 870 ms IDCO Episode Duration 1 s IDCO Episode Detection And Therapy Details ATR IDCO Episode Statistic Type Category VF IDCO Episode Statistic Vendor Type Category VF IDCO Episode Statistic Recent Count 0 IDCO Episode Statistic Recent Date Time Start 20170127 IDCO Episode Statistic Recent Date Time End [id number] IDCO Episode Statistic Type Category VT IDCO Episode Statistic Vendor Type Category VT IDCO Episode Statistic Recent Count 0 IDCO Episode Statistic Recent Date Time Start 20170127 IDCO Episode Statistic Recent Date Time End [id number] IDCO Episode Statistic Type Category VT IDCO Episode Statistic Vendor Type Category VT-1 IDCO Episode Statistic Recent Count 0 IDCO Episode Statistic Recent Date Time Start 20170127 IDCO Episode Statistic Recent Date Time End 20170707 IDCO Episode Statistic Type Category Monitor IDCO Episode Statistic Vendor Type Category IDCO Episode Statistic Recent Count 0 IDCO Episode Statistic Recent Date Time Start 20170127 IDCO Episode Statistic Recent Date Time End [id number] IDCO Episode Statistic Type Category Other IDCO Episode Statistic Vendor Type Category IDCO Episode Statistic Recent Count 0 IDCO Episode Statistic Recent Date Time Start 20170127 IDCO Episode Statistic Recent Date Time End [id number] IDCO Episode Statistic Type Category VT IDCO Episode Statistic Vendor Type Category NSVT IDCO Episode Statistic Recent Count 150 IDCO Episode Statistic Recent Date Time Start 20170127 IDCO Episode Statistic Recent Date Time End [id number] IDCO Episode Statistic Type Category AT/AF IDCO Episode Statistic Vendor Type Category ATR IDCO Episode Statistic Recent Count 36 IDCO Episode Statistic Recent Date Time Start 20170127 IDCO Episode Statistic Recent Date Time End [id number] IDCO Albaro Setting AT Mode Switch Mode VDIR IDCO Albaro Setting AT Mode Switch Rate 170 {beats}/ min IDCO Albaro Setting Mode (NBG Code) DDDR IDCO Albaro Setting Lower Rate Limit 55 {beats}/ min IDCO Albaro Setting Maximum Tracking Rate 130 {beats}/ min IDCO Albaro Setting Maximum Sensor Rate 130 {beats}/ min IDCO Albaro Setting CORINE Delay High 150 ms IDCO Albaro Setting CORINE Delay Low 65 ms IDCO Albaro Setting PAV Delay High 180 ms IDCO Albaro Setting PAV Delay Low 80 ms IDCO Tachy Therapy Setting Ventricular Status [...] E162 IDCO Implantable Pulse Generator Serial Number [id number] IDCO Implantable Pulse Generator Paint Supervisor [employer] IDCO Implantable Pulse Generator Implant Date 20140110 IDCO Implantable Lead Model 4136 IDCO Implantable Lead Serial Number [id number] IDCO Implantable Lead Paint Supervisor Guidant IDCO Implantable Lead Implant Date 20130421 IDCO Implantable Lead Polarity Type Bipolar Lead IDCO Implantable Lead Location Right Atrium IDCO Implantable Lead Model 0292 IDCO Implantable Lead Serial Number [id number] IDCO Implantable Lead Paint Supervisor [employer] IDCO Implantable Lead Implant Date IDCO Implantable Lead Location Right Ventricle IDCO Lead Channel Measurements Date and Time Start 20170127 IDCO Lead Channel Measurements Date and Time End 20170705 IDCO Lead Channel Sensing Intrinsic Amplitude Mean 3.6 mV IDCO Lead Channel Sensing Polarity Bipolar IDCO Lead Channel Pacing Threshold Amplitude 0.4 V IDCO Lead Channel Pacing Threshold Pulse Width 0.5 ms IDCO Lead Channel Pacing Threshold Measurement Method [employer] Manual IDCO Lead Channel Pacing Threshold Polarity Bipolar IDCO Lead Channel Impedance Value 656 ohms IDCO Lead Channel Impedance Polarity Bipolar IDCO Lead Channel Measurements Date and Time Start 20170127 IDCO Lead Channel Measurements Date and Time End [id number] IDCO Lead Channel Sensing Intrinsic Amplitude Mean 9.9 mV IDCO Lead Channel Sensing Polarity Bipolar IDCO Lead Channel Pacing Threshold Amplitude 1.2 V IDCO Lead Channel Pacing Threshold Pulse Width 0.5 ms IDCO Lead Channel Pacing Threshold Measurement Method [employer] Manual IDCO Lead Channel Pacing Threshold Polarity Bipolar IDCO Lead Channel Impedance Value 588 ohms IDCO Lead Channel Impedance Polarity Bipolar IDCO Lead High Voltage Channel Date Time [id number] IDCO Lead High Voltage Channel Impedance 88 ohms IDCO Lead High Voltage Channel Measurement Type Low Voltage Pulse IDCO Statistic Date Time Start 20170127 IDCO Statistic Date Time End [id number] IDCO Albaro Statistic Date Time Start 20170127 IDCO Albaro Statistic Date Time End [id number] IDCO Albaro Statistic RA Percent Paced 0 % IDCO Albaro Statistic RV Percent Paced 1 % IDCO Therapy Statistic Recent Date Time Start 20170127 IDCO Therapy Statistic Recent Date Time End [id number] IDCO Therapy Statistic Recent Shocks Delivered 0 IDCO Therapy Statistic Total Date Time Start 20140110 IDCO Therapy Statistic Total Date Time End [id number] IDCO Therapy Statistic Total Shocks Delivered 2 IDCO Therapy Statistic Recent Shocks Aborted 0 IDCO Therapy Statistic Total Shocks Aborted 0 IDCO Therapy Statistic Recent ATP Delivered 0 IDCO Therapy Statistic Total ATP Delivered 1 IDCO Anatomical Region Laterality Modality Other 07/07/2017 12:4 2 AM EDT Physician Cardiology IMPLANTABLE CARD IAC DEVICE documented in this encounter Visit Diagnoses Not on filedocumented in this encounter Care Teams Wood And Hardware Outfitter Relationship Specialty Start Date End Date Dewayne Carrington MD [address] [place] [phone] PCP - General 09/02/16 documented as of this encounter
--- OUTSIDE RECORDS SUMMARY | 2023-11-03 01:26 | XMS_ITS | Encounter Summary ---
Author Organization [facility] [place] [address] Care Team Providers Care Floral Designer Name Role Phone Dewayne Carrington MD Primary Care Provider [phone] Encounter Details Date Type Department Care Team (Late Contact Info) Description 01/20/2017 Telephone Cardiology at [address] [phone] Gisselle Sutherland RN Social History Tobacco Use [...] Telephone Encounter - Gisselle Sutherland RN - 01/20/2017 4:43 PM EDT He called to report that he was diagnosed with rapid a-fib yesterday in the local ED, rates up to 160. He was cardioverted. Metoprolol dose was increased. He will watch BP and HR, let us know if he has problems. Has scheduled follow-up with Dr. Self 02/10. documented in this encounter Plan of Treatment Upcoming Encounters Date Type Department Care Team (Late Contact Info) Description 12/18/2023 10:00 AM EDT Hospital Encounter Non-Invasive Cardiology [place] [address] Arrived documented as of this encounter Visit Diagnoses Not on filedocumented in this encounter Care Teams Floral Designer Relationship Specialty Start Date End Date Dewayne Carrington MD [address] [place] [phone] PCP - General 09/02/16 documented as of this encounter
--- OUTSIDE RECORDS SUMMARY | 2023-11-03 01:26 | XMS_ITS | Encounter Summary ---
Author Organization [facility] Address [facility] [place] [address] Care Team Providers Care Clinical Account Specialist Name Role Phone Dewayne Carrington MD Primary Care Provider [phone] Encounter Details Date Type Department Care Team (Latest Contact Info) Description 11/06/2016 1:00 PM EDT Office Visit Cardiology at [address] [address] Kit Self MD [facility] [place] [address] Typical atrial flutter; ASCVD (arteriosclerotic cardiovascular disease) Social History Tobacco [...] Reading Time Taken Comments Blood Pressure 110/68 11/06/2016 12:58 PM EDT Pulse 66 11/06/2016 12:58 PM EDT Temperature - - Respiratory Rate - - Oxygen Saturation 96% 11/06/2016 12:58 PM EDT Inhaled Oxygen Concentration - - Weight 93.2 kg (205 lb 8 oz) 11/06/2016 12:58 PM EDT Height 185.4 cm (6' 1) 11/06/2016 12:58 PM EDT Body Mass Index 27.11 11/06/2016 12:58 PM EDT documented in this encounter Progress Notes * Kit Self MD - 11/06/2016 1:00 PM EDT Images from the original note were not included. [facility] JAYA Cao [address] CARDIOLOGY OUTPATIENT FOLLOW-UP NOTE Marquez Hendrix [id number] PCP: Dewayne Carrington MD 11/06/2016 PRIMARY CARE PROVIDER: Dewayne Carrington MD PROBLEM LIST: Patient Active Problem List Diagnosis ??? ASCVD (arteriosclerotic cardiovascular disease) ?? Heart catheterization in [facility] in 2007 with placement of a stent in an unspecified vessel ?? Repeat heart catheterization in 2008 with placement of stents to both the LAD and circumflex ?? Followup heart catheterization in 2008 showing stable results in both vessels ?? Recurrent chest discomfort in a somewhat atypical pattern beginning fall ?? Nuclear stress test at [facility] in [place], [place] May 02, 2013 during which he developed left shoulder and arm discomfort during submaximal exercise on the treadmill and after which he was converted to a pharmacologic test; nuclear imaging showed ejection fraction of 45% with a partially reversible inferior defect ?? Cath [facility] 05/13/2013: normal left main, mild diffuse disease throughout the LAD with an 80% mid stenosis representing a restenosis lesion, mild diffuse disease in the proximal obtuse marginal branch, and mild diffuse disease throughout the right coronary artery; status post 3.0 X 12 mm JON to 80%mid-LAD lesion (in-stent restenosis) ?? Heart catheterization [facility] January 06, 2014 showing normal left main, hazy 50% mid LAD stenosis, mild diffuse disease throughout the circumflex, and moderate diffuse disease in the proximal RCA with a totally occluded distal RCA with brisk flow via bridging collaterals; fractional flow reserveon the LAD 0.85 ?? Nuclear stress test [facility] August 2016 reportedly showing a small area of inferior ischemia (final report pending) ?? Echo 11/06/16 showing inferior HK with EF 49%; no valvular disease ??? Typical atrial flutter ?? Occurred 06/08/13, lasted about 24 hours, and v rate about 80 (documented on ICD interrogation 07/18/14) ?? [id number] score = 3 ?? Patient initially reluctant to be anticoagulated as recommended ??? Atrial pacemaker lead displacement New finding at office follow up 04/10/2014 Plan lead reposition/replacement ??? ICD (implantable cardioverter-defibrillator), dual, in situ New Atrial electrode: Guidant Dextrus Model# 4126-53 cm Serial# [id number] ?? Bipolar, steroid-tipped, active-fixation IS-1 lead ?? [...] at 10 V: No Old Ventricular electrode: [place] [employer]vding Willard Model# 0292 Serial# [id number] ?? Bipolar, steroid-tipped, active-fixation DF-4 lead ?? [...] Atrial electrode: Guidant Dextrus Model# 4136 Serial# [id number] ?? Bipolar, steroid-tipped, active-fixation IS-1 lead ?? Access: Axillary vein ?? Location Removed 04/17/2014 ?? Implanted: 01/10/2014 Pulse generator: OpSource Incepta Model# E162 Serial# [id number] ?? DDDR ICD ?? Location: Subcutaneous The [...] Outpatient Prescriptions Medication Sig Dispense Refill ??? atorvastatin (LIPITOR) 80 mg Tablet Take 80 mg by mouth daily. ??? aspirin 325 mg Tablet Take 325 mg by mouth daily. ??? meTOPROLOL tartrate (LOPRESSOR) 25 mg Tablet take 1 tablet by mouth twice a day 180 tablet 3 ??? pramipexole (MIRAPEX) 0.125 mg Tablet Take 0.125 mg by mouth daily. ??? vortioxetine (TRINTELLIX) 20 mg Tablet Take 20 mg by mouth daily. ??? CALCIUM CARBONATE/VITAMIN D3 (VITAMIN D-3 ORAL) Take 1 capsule by mouth daily. ??? magnesium 250 mg Tablet Take 500 mg by mouth daily. ??? traMADol (ULTRAM) 50 mg Tablet Take 50 mg by mouth every 6 hours as needed for Pain. ??? lisinopril (PRINIVIL;ZESTRIL) 20 mg Tablet Take 1 tablet by mouth daily. 30 tablet 12 ??? zolpidem (AMBIEN) 10 mg tablet Take 10 mg by mouth nightly as needed. ??? pantoprazole (PROTONIX) 40 mg tablet Take 1 tablet by mouth 2 times daily. (Patient taking differently: Take 40 mg by mouth daily.) 90 tablet 6 ??? multivitamin capsule Take 1 capsule by mouth daily. ??? LANCETS MISC by Misc.(Non-Drug; Combo Route) route. ??? lamotrigine (LAMICTAL) 100 mg tablet Take 100 mg by mouth daily. ??? alprazolam (XANAX XR) 3 mg 24 hr tablet Take 3 mg by mouth daily. ??? metformin (GLUCOPHAGE) 1,000 mg tablet Take 1,000 mg by mouth 2 times daily (with meals). ??? hydrOXYzine (ATARAX) 25 mg tablet Take 25 mg by mouth 3 times daily as needed. Reported on 09/30/2016 ??? glipizide (GLUCOTROL) 5 mg 24 hr tablet Take 10 mg by mouth daily. ??? nitroGLYcerin (NITROSTAT) 0.[address] 0.4 mg under the tongue every 5 minutes as needed. Reported on 09/30/2016 No current facility-administered medications for this visit. SUBJECTIVE: This 66-year-old man comes for follow-up visit. 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 Thus far he has been somewhat reluctant to be anticoagulated although has been giving it some thought. He comes today indicating that he is doing well. Yesterday he took a long bike ride and had no problems with his breathing or chest discomfort. He has some fatigue and lack of energy which is somewhat bothersome to him. He wonders if this might be related to the atrial fibrillation although cannot feel the rhythm abnormality. OBJECTIVE: Vital Signs: BP 110/68 (BP Location (NBP): Left arm, Patient Position: Sitting, BP Cuff Sizes: Adult (25-34 cm)) Pulse 66 Ht 185.4 cm (6' 1) Wt 93.2 kg (205 lb 8 oz) SpO2 96% BMI 27.11 kg/m2 Physical Exam: On exam he appeared in good health and spirits. Vital signs as documented. Skin warmand dry and without overt rashes. Neck without JVD. Lungs clear. Heart exam notable for regular rhythm, normal sounds and absence of murmurs, rubs or gallops. Abdomen unremarkable and without evidence of organomegally, masses, or abdominal aortic enlargement. Extremities non-edematous. Twelve-lead EKG: This revealed normal sinus rhythm with a left axis deviation and poor R-wave progression. He also had inferior Q waves suggestive of an old inferior infarction. Echocardiogram: Performed earlier today, this showed inferior hypokinesia with an mildly reduced ejection fraction of 49%. He had no valvular disease. The left atrium was not well visualized. He had mild mitral regurgitation and mild aortic regurgitation. DIAGNOSES: 1. Mild ischemic cardiomyopathy 2. Atherosclerotic cardiovascular disease 3. Paroxysmal atrial fibrillation IMPRESSIONS: In view of his paroxysmal atrial fibrillation and elevated [id number] score we have recommended formal anticoagulation and he is now agreeable. He prefers to try Eliquis after having research the matter. Coincident with this, I recommended that he switch from a full dose to baby aspirin. His coronary artery disease seems stable at this time. PLAN: 1. Start Eliquis 5 mg twice daily 2. Reduce aspirin from 325 mg daily to 81 mg daily 3. Watch for any signs of bleeding 4. Routine follow-up in 6 months documented in this encounter Plan of Treatment Upcoming Encounters Date Type Department Care Team (Late st Contact Info) Description 12/18/2023 10:00 AM EDT Hospital Encounter [place] [address] Arrived documented as of this encounter Procedures Procedure Name Priority Date/Time Associated Diagnosis Comments EKG 12-LEAD Routine 11/06/2016 1:03 PM EDT Typical atrial flutter documented in this encounter Results * EKG 12 Lead (11/06/2016 1:03 PM EDT) Ventricular rate 64 BPM MUSE SYSTEM Atrial Rate 64 BPM MUSE SYSTEM P-R Interval 200 ms MUSE SYSTEM QRS Duration 112 ms MUSE SYSTEM Q-T Interval 446 ms MUSE SYSTEM QTC Calculated (Bezet) 460 ms MUSE SYSTEM Calculated P [place] 42 degrees MUSE SYSTEM Calculated R [place] -53 degrees MUSE SYSTEM Calculated T [place] -5 degrees MUSE SYSTEM INTERPRETATION Normal sinus rhythm Left axis deviation Cannot rule out Anterior infarct , age undetermined Abnormal ECG When compared with ECG of 06-JAN-2014 09:29, T wave inversion less evident in Inferior leads T wave inversion no longer evident in Anterolateral leads Confirmed by MD Self Jon ([id number]) on 11/06/2016 5:11:05 PM MUSE SYSTEM 11/06/2016 1:03 PM EDT 11/06/2016 5:11 PM EDT Kit Self MD ECG ORDERABLES MUSE SYSTEM documented in this encounter Visit Diagnoses Diagnosis Typical atrial flutter Atrial flutter ASCVD (arteriosclerotic cardiovascular disease) Unspecified cardiovascular disease documented in this encounter Care Teams Clinical Account Specialist Relationship Specialty Start Date End Date Dewayne Carrington MD [address] [place] [id number] PCP - General 09/02/16 documented as of this encounter
--- OUTSIDE RECORDS SUMMARY | 2023-11-03 01:26 | XMS_ITS | Encounter Summary ---
Author Organization [facility] [place] [address] Care Team Providers Care Preschool Associate Teacher Name Role Phone Dewayne Carrington MD Primary Care Provider [phone] Encounter Details Date Type Department Care Team (Latest Contact Info) Description 12/31/2017 - 12/31/2017 12:04 AM EDT Hospital Encounter [place] [address] Honorio Vasquez MD [facility] [place] [address] Discharge Disposition: Home Social History Tobacco Use [...] Dispensed Refills Start Date End Date aspirin 81 mg Tablet, Delayed Release (E.C.) [...] 5 minutes as needed. Reported on 09/30/2016 glipiZIDE (GLUCOTROL) 5 mg Tablet Take 5 mg by mouth daily. 03/18/2022 meTOPROLOL succinate (TOPROL-XL) 25 mg Tablet Sustained Release 24 hr Take 125 mg by mouth daily. PT reports taking 5 a day 09/01/2018 atorvastatin (LIPITOR) 80 mg Tablet Take 80 mg by mouth daily. 12/12/2020 vortioxetine (TRINTELLIX) 20 mg Tablet Take 20 mg by mouth daily. 09/01/2018 CALCIUM CARBONATE/VITAMIN D3 (VITAMIN D-3 ORAL) Take 1 capsule by mouth daily. 10/19/2020 lisinopril (PRINIVIL;ZESTRIL) 20 mg Tablet Take 1 tablet by mouth daily. 30 tablet 12 01/09/2014 03/18/2022 lamotrigine (LAMICTAL) 100 mg tablet Take 200 mg by mouth daily. 09/01/2018 alprazolam (XANAX XR) 3 mg 24 hr tablet Take 3 mg by mouth nightly. 09/18/2020 documented as of this encounter Plan of Treatment Upcoming Encounters Date Type Department Care Team (Late st Contact Info) Description 12/18/2023 10:00 AM EDT Hospital Encounter Non-Invasive [place] [address] Arrived documented as of this encounter Procedures Procedure Name Priority Date/Time Associated Diagnosis Comments FILM LIBRARY STORAGE ONLY DX UPPER EXTREMITY Routine 12/31/2017 12:00 AM EDT documented in this encounter Results * Film Library- Storage Only DX Upper Extremity (12/31/2017 12:00 AM EDT) Narrative [facility] - 01/07/2018 5:52 PM EDT This exam is for storage only and is auto-finalizing. Honorio Vasquez MD IMG FILM LIBRARY ORD ERABLES [place], [place] documented in this encounter Visit Diagnoses Not on filedocumented in this encounter Care Teams Preschool Associate Teacher Relationship Specialty Start Date End Date Dewayne Carrington MD [address] [place] [address] PCP - General 09/02/16 documented as of this encounter
--- OUTSIDE RECORDS SUMMARY | 2023-11-03 01:26 | XMS_ITS | Encounter Summary ---
Author Organization [facility] [place] [address] Care Team Providers Care Grocery Supervisor Name Role Phone Dewayne Carrington MD Primary Care Provider [phone] Encounter Details Date Type Department Care Team (Latest Contact Info) Description 07/08/2017 - 07/08/2017 11:59 PM EDT Hospital Encounter [place] [address] Honorio Vasquez MD [facility] [address] [place] [address] Discharge Disposition: Home Social History Tobacco Use [...] EDT Hospital Encounter Non-Invasive [place] [address] Arrived documented as of this encounter Procedures Procedure Name Priority Date/Time Associated Diagnosis Comments FILM LIBRARY STORAGE ONLY DX WRIST Routine 07/08/2017 12:00 AM EDT documented in this encounter Results * Film Library- Storage Only DX Wrist (07/08/2017 12:00 AM EDT) Narrative [facility] - 01/07/2018 5:51 PM EDT This exam is for storage only and is auto-finalizing. Honorio Vasquez MD IMG FILM LIBRARY ORD ERABLES [place], [place] documented in this encounter Visit Diagnoses Not on filedocumented in this encounter Care Teams Grocery Supervisor Relationship Specialty Start Date End Date Dewayne Carrington MD [address] [place] [address] PCP - General 09/02/16 documented as of this encounter
--- OUTSIDE RECORDS SUMMARY | 2023-11-03 01:26 | XMS_ITS | Encounter Summary ---
[place] [address] Care Team Providers Care Poultry Farmer Name Role Phone Dewayne Carrington MD Primary Care Provider [phone] Encounter Details Date Type Department Care Team (Late st Contact Info) Description 01/06/2017 Orders Only Cardiology at [address] [phone] Social History Tobacco Use Types Packs/Day Years [...] AM EDT Hospital Encounter Non-Invasive [place] [address] Arrived documented as of this encounter Procedures Procedure Name Priority Date/Time Associated Diagnosis Comments CARDIAC DEVICE CHECK - REMOTE SCHEDULED Routine 01/06/2017 12:41 AM EDT documented in this encounter Results * Cardiac device check - Remote Scheduled (01/06/2017 12:41 AM EDT) Date Time Interrogation Session [id number] IDCO Type Interrogation Session Remote Scheduled IDCO Clinic Name [facility] IDCO Battery Date Time of Measurements [id number] IDCO Battery Status Beginning of Service IDCO Battery Remaining Longevity 102 mo IDCO Battery Remaining Percentage 100 % IDCO Capacitor Last Charge Date Time IDCO Capacitor Charge Time 10.4 s IDCO Capacitor Charge Type Reformation IDCO Capacitor Last Charge Date Time IDCO Capacitor Charge Time 3.8 s IDCO Capacitor Charge Energy 21 J IDCO Capacitor Charge Type Shock IDCO Episode Identifier APM-20 IDCO Episode Date Time IDCO Episode Type Category Periodic EGM IDCO Episode Vendor Type Category APMRT IDCO Episode Detection And Therapy Details Presenting EGM IDCO Episode Identifier - IDCO Episode Date Time IDCO Episode Type Category Other IDCO Episode Vendor Type Category XANDER IDCO Episode Detection Interval Ventricular 1,000 ms IDCO Episode Duration 56 s IDCO Episode Detection And Therapy Details IDCO Episode Identifier IDCO Episode Date Time IDCO Episode Type Category Other IDCO Episode Vendor Type Category XANDER IDCO Episode Detection Interval Ventricular 1,333 ms IDCO Episode Duration 60 s IDCO [...] Interval Ventricular 1,034 ms IDCO Episode Duration 62 s IDCO Episode Detection And Therapy Details Q IDCO Episode Identifier [id number] IDCO Episode Date Time IDCO Episode Type Category Other IDCO Episode Vendor Type Category XANDER IDCO Episode Detection Interval Ventricular 1,176 ms IDCO Episode Duration 63 s IDCO Episode Detection And Therapy Details Q IDCO Episode Identifier [id number] IDCO Episode Date Time IDCO Episode Type Category Other IDCO Episode Vendor Type Category XANDER IDCO Episode Detection Interval Ventricular 1,053 ms IDCO Episode Duration 60 s IDCO Episode Detection And Therapy Details IDCO Episode Identifier RYQ- IDCO Episode Date Time IDCO Episode Type Category Other IDCO Episode Vendor Type Category XANDER IDCO Episode Detection Interval Ventricular 1,034 ms IDCO Episode Duration 53 s IDCO Episode Detection And Therapy Details IDCO Episode Identifier Q- IDCO Episode Date Time IDCO Episode Type Category Other IDCO Episode Vendor Type Category XANDER IDCO Episode Detection Interval Ventricular 1,034 ms IDCO Episode Duration 64 s IDCO Episode Detection And Therapy Details Q IDCO Episode Identifier [id number] IDCO Episode Date Time [id number] IDCO Episode Type Category AT/AF IDCO Episode Vendor Type Category ATR IDCO Episode Detection Interval Atrial 243 ms IDCO Episode Duration 51 s IDCO Episode Detection And Therapy Details ATR IDCO Episode Identifier ATR-125 IDCO Episode Date Time [id number] IDCO Episode Type Category AT/AF IDCO Episode Vendor Type Category ATR IDCO Episode Detection Interval Atrial 267 ms IDCO Episode Duration 33 s IDCO Episode Detection And Therapy Details ATR IDCO Episode Identifier [id number]-124 IDCO Episode Date Time [id number] IDCO Episode Type Category AT/AF IDCO Episode Vendor Type Category ATR IDCO Episode Detection Interval Atrial 213 ms IDCO Episode Duration 136 s IDCO Episode Detection And Therapy Details ATR IDCO Episode Identifier V-173 IDCO Episode Date Time [id number] IDCO Episode Type Category VT IDCO Episode Vendor Type Category NSVT IDCO Episode Type Induced Flag NO IDCO Episode Detection Interval Ventricular 397 ms IDCO Episode Duration 10 s IDCO Episode Detection And Therapy Details NonSustV IDCO Episode Identifier V-172 IDCO Episode Date Time IDCO Episode Type Category VT IDCO Episode Vendor Type Category NSVT IDCO Episode Type Induced Flag NO IDCO Episode Detection Interval Ventricular 382 ms IDCO Episode Duration 8 s IDCO Episode Detection And Therapy Details NonSustV IDCO Episode Identifier ATR-123 IDCO Episode Date Time IDCO Episode Type Category AT/AF IDCO Episode Vendor Type Category ATR IDCO Episode Detection Interval Atrial 242 ms IDCO Episode Duration 42 s IDCO Episode Detection And Therapy Details ATR IDCO Episode Identifier [id number]-122 IDCO Episode Date Time [id number] IDCO Episode Type Category AT/AF IDCO Episode Vendor Type Category ATR IDCO Episode Detection Interval Atrial 218 ms IDCO Episode Duration 442 s IDCO Episode Detection And Therapy Details ATR IDCO Episode Statistic Type Category VF IDCO Episode Statistic Vendor Type Category VF IDCO Episode Statistic Recent Count 0 IDCO Episode Statistic Recent Date Time Start 20160930 IDCO Episode Statistic Recent Date Time End 20170106 IDCO Episode Statistic Type Category VT IDCO Episode Statistic Vendor Type Category VT IDCO Episode Statistic Recent Count 0 IDCO Episode Statistic Recent Date Time Start 20160930 IDCO Episode Statistic Recent Date Time End 20170106 IDCO Episode Statistic Type Category VT IDCO Episode Statistic Vendor Type Category VT-1 IDCO Episode Statistic Recent Count 0 IDCO Episode Statistic Recent Date Time Start 20160930 IDCO Episode Statistic Recent Date Time End 20170106 IDCO Episode Statistic Type Category Monitor IDCO Episode Statistic Vendor Type Category IDCO Episode Statistic Recent Count 0 IDCO Episode Statistic Recent Date Time Start 20160930 IDCO Episode Statistic Recent Date Time End 20170106 IDCO Episode Statistic Type Category Other IDCO Episode Statistic Vendor Type Category IDCO Episode Statistic Recent Count 0 IDCO Episode Statistic Recent Date Time Start 20160930 IDCO Episode Statistic Recent Date Time End 20170106 IDCO Episode Statistic Type Category VT IDCO Episode Statistic Vendor Type Category NSVT IDCO Episode Statistic Recent Count 2 IDCO Episode Statistic Recent Date Time Start 20160930 IDCO Episode Statistic Recent Date Time End 20170106 IDCO Episode Statistic Type Category AT/AF IDCO Episode Statistic Vendor Type Category ATR IDCO Episode Statistic Recent Count 5 IDCO Episode Statistic Recent Date Time Start 20160930 IDCO Episode Statistic Recent Date Time End 20170106 IDCO Albaro Setting AT Mode Switch Mode [...] Setting CORINE Delay Low 65 ms IDCO [place] Setting PAV Delay High 180 ms IDCO [...] E162 IDCO Implantable Pulse Generator Serial Number [id number] IDCO Implantable Pulse Generator Stranding Machine Operator [employer] IDCO Implantable Pulse Generator Implant Date 20140110 IDCO Implantable Lead Model 4136 IDCO Implantable Lead Serial Number [id number] IDCO Implantable Lead Stranding Machine Operator Guidant IDCO Implantable Lead Implant Date 20130421 IDCO Implantable Lead Polarity Type Bipolar Lead IDCO Implantable Lead Location Right Atrium IDCO Implantable Lead Model 0292 IDCO Implantable Lead Serial Number [id number] IDCO Implantable Lead Stranding Machine Operator [employer] IDCO Implantable Lead Implant Date IDCO Implantable Lead Location Right Ventricle IDCO Lead Channel Measurements Date and Time Start 20160930 IDCO Lead Channel Measurements Date and Time End 20170104 IDCO Lead Channel Sensing Intrinsic Amplitude Mean 4.4 mV IDCO Lead Channel Sensing Polarity Bipolar IDCO Lead Channel Pacing Threshold Amplitude 1.1 V IDCO Lead Channel Pacing Threshold Pulse Width 0.5 ms IDCO Lead Channel Pacing Threshold Measurement Method Movers Manual IDCO Lead Channel Pacing Threshold Polarity Bipolar IDCO Lead Channel Impedance Value 668 ohms IDCO Lead Channel Impedance Polarity Bipolar IDCO Lead Channel Measurements Date and Time Start 20160930 IDCO Lead Channel Measurements Date and Time End 20170104 IDCO Lead Channel Sensing Intrinsic Amplitude Mean 11.5 mV IDCO Lead Channel Sensing Polarity Bipolar IDCO Lead Channel Pacing Threshold Amplitude 0.6 V IDCO Lead Channel Pacing Threshold Pulse Width 0.5 ms IDCO Lead Channel Pacing Threshold Measurement Method Movers Manual IDCO Lead Channel Pacing Threshold Polarity Bipolar IDCO Lead Channel Impedance Value 610 ohms IDCO Lead Channel Impedance Polarity Bipolar IDCO Lead High Voltage Channel Date Time 20170104 IDCO Lead High Voltage Channel Impedance 92 ohms IDCO Lead High Voltage Channel Measurement Type Low Voltage Pulse IDCO Statistic Date Time Start 20160930 IDCO Statistic Date Time End 20170106 IDCO Albaro Statistic Date Time Start 20160930 IDCO Albaro Statistic Date Time End 20170106 IDCO Albaro Statistic RA Percent Paced 20 % IDCO Albaro Statistic RV Percent Paced 1 % IDCO Therapy Statistic Recent Date Time Start 20160930 IDCO Therapy Statistic Recent Date Time End 20170106 IDCO Therapy Statistic Recent Shocks Delivered 0 IDCO Therapy Statistic Total Date Time Start 20140110 IDCO Therapy Statistic Total Date Time End 20170106 IDCO Therapy Statistic Total Shocks Delivered 2 IDCO Therapy Statistic Recent Shocks Aborted 0 IDCO Therapy Statistic Total Shocks Aborted 0 IDCO Therapy Statistic Recent ATP Delivered 0 IDCO Therapy Statistic Total ATP Delivered 1 IDCO Anatomical Region Laterality Modality Other 01/06/2017 12:4 1 AM EDT Physician Cardiology IMPLANTABLE CARD IAC DEVICE documented in this encounter Visit Diagnoses Not on filedocumented in this encounter Care Teams Poultry Farmer Relationship Specialty Start Date End Date Dewayne Carrington MD [address] [place] [address] PCP - General 09/02/16 documented as of this encounter
--- OUTSIDE RECORDS SUMMARY | 2023-11-03 01:26 | XMS_ITS | Encounter Summary ---
Author Organization [facility] [place] [address] Care Team Providers Care Accounting Coordinator Name Role Phone Dewayne Carrington MD Primary Care Provider [phone] Encounter Details Date Type Department Care Team (Late st Contact Info) Description 10/14/2017 Telephone Cardiology at [address] [address] Chante Robertson RN Social History Tobacco Use [...] Telephone Encounter - Chante Robertson RN - 10/14/2017 12:45 PM EDT He called asking his remote monitor was flashing yellow, I gave him the number to [facility] get connected-to further trouble shoot his connectivity issue documented in this encounter Plan of Treatment Upcoming Encounters Date Type Department Care Team (Late st Contact Info) Description 12/18/2023 10:00 AM EDT Hospital Encounter Non-[place]vasive [place] [address] Arrived documented as of this encounter Visit Diagnoses Not on filedocumented in this encounter Care Teams Accounting Coordinator Relationship Specialty Start Date End Date Dewayne Carrington MD [address] [place] [address] PCP - General 09/02/16 documented as of this encounter
--- OUTSIDE RECORDS SUMMARY | 2023-11-03 01:26 | XMS_ITS | Encounter Summary ---
Author Organization [facility] [place] [address] Care Team Providers Care Gate Keeper Name Role Phone Dewayne Carrington MD Primary Care Provider [phone] Encounter Details Date Type Department Care Team (Late st Contact Info) Description 09/11/2016 External Results Cardiology at [address] [phone] Kit Self MD [facility] [place] [address] Social History Tobacco Use Types Packs/Day Years [...] AM EDT Hospital Encounter Non[place] [address] Arrived documented as of this encounter Procedures Procedure Name Priority Date/Time Associated Diagnosis Comments EP DEVICE SCAN Routine 09/04/2016 documented in this encounter Results * Scan Doc: EP Device (09/04/2016) Anatomical Region Laterality Modality Other Kit Self MD MEDIA MGR SCAN EXT O RDR/RSLT documented in this encounter Visit Diagnoses Not on filedocumented in this encounter Care Teams Gate Keeper Relationship Specialty Start Date End Date Dewayne Carrington MD [address] [place] [address] PCP - General 09/02/16 documented as of this encounter
--- OUTSIDE RECORDS SUMMARY | 2023-11-03 01:26 | XMS_ITS | Encounter Summary ---
Author Organization [facility] Address [facility] [place] [address] Care Team Providers Care Psych Arnp Name Role Phone Dewayne Carrington MD Primary Care Provider [phone] Reason for Visit * Reason Onset Date Comments Questions 03/04/2018 Encounter Details Date Type Department Care Team (Late st Contact Info) Description 03/04/2018 Telephone [place] [phone] Honorio Vasquez MD [facility] [address] ORTHOPAEDIC [place] [address] Questions Social History Tobacco Use Types Packs/Day Years [...] encounter Miscellaneous Notes * Telephone Encounter - Luisa Morin RN - 03/05/2018 11:29 AM EST The MRI product safety and standards engineer reviewed 's defibrillator information and determined that it was not MRI compatible. I informed who was disappointed but says that he will keep his follow appointment with . I send a note to informing him and asked if he wanted a different x- ray ordered. * Telephone Encounter - Francine Serna - 03/04/2018 3:47 PM EST Mr. Hendrix called requesting to have the MRI Dr. Vasquez had mentioned at his last visit (02/17/18). Mr. Hendrix has also requested to be scheduled for the MRI before his next appointment with Dr. Vasquez on 03/17/18. Best number to contact Mr. Hendrix for [phone] documented in this encounter Plan of Treatment Upcoming Encounters Date Type Department Care Team (Late st Contact Info) Description 12/18/2023 10:00 AM EDT Hospital Encounter Non[place] [phone] Arrived documented as of this encounter Visit Diagnoses Not on filedocumented in this encounter Care Teams Psych Arnp Relationship Specialty Start Date End Date Dewayne Carrington MD [address] [place] [address] PCP - General 09/02/16 documented as of this encounter
--- OUTSIDE RECORDS SUMMARY | 2023-11-03 01:26 | XMS_ITS | Encounter Summary ---
Author Organization [facility] Address [facility] [place] [address] Care Team Providers Care Radiological Technician Name Role Phone Dewayne Carrington MD Primary Care Provider [phone] Encounter Details Date Type Department Care Team (Latest Contact Info) Description 09/30/2016 2:20 PM EDT Office Visit Cardiology at [address] [address] Kit Self MD [facility] [address] ASCVD (arteriosclerotic cardiovascular disease) Social History Tobacco [...] Sign Reading Time Taken Comments Blood Pressure 110/65 09/30/2016 2:09 PM EDT Pulse 65 09/30/2016 2:09 PM EDT Temperature - - Respiratory Rate - - Oxygen Saturation 95% 09/30/2016 2:09 PM EDT Inhaled Oxygen Concentration - - Weight 90.7 kg (200 lb) 09/30/2016 2:09 PM EDT Height 185.4 cm (6' 1) 09/30/2016 2:09 PM EDT Body Mass Index 26.39 09/30/2016 2:09 PM EDT documented in this encounter Progress Notes * Kit Self MD - 09/30/2016 2:20 PM EDT Images from the original note were not included. CARDIOLOGY STAFF ADDENDUM: This patient was seen today and personally interviewed and examined. Agree with documentation by Dr. Butler, which I have reviewed and independently confirmed. BRIEF CLINICAL HISTORY: This 66-year-old man with coronary artery disease, ischemic cardiomyopathy,ventricular tachycardia leading to ICD placement, and a history of atrial flutter comes for a follow-up visit. He continues to report occasional chest tightness when in stressful situations. He has no exertional symptoms and recently took a 1 mile hike with no problems whatsoever. He was evaluated with a stress test recently at his local hospital and this showed a small area of ischemia in the inferior wall (RCA distribution) with a reported ejection fraction of 39%. He ended up being admitted to his local hospital after the stress test with a headache, elevated blood pressure, and fatigue. ACT scan of his brain was negative. He is now feeling better. At this point he is having only rare atypical symptoms. Of note, interrogation of his ICD today showed multiple episodes of probable atrial fibrillation, the longest was more than 5 hours on August 19, 2016. EXAM: On exam he appeared in good health and spirits. Vital signs as documented. Skin warm and dry and without overt rashes. Neck without JVD. Lungs clear. Heart exam notable for regular rhythm, normal sounds and absence of murmurs, rubs or gallops. Abdomen unremarkable and without evidence of organomegally, masses, or abdominal aortic enlargement. Extremities non-edematous. ASSESSMENT: Although generally stable and his inferior ischemic defect certainly explainable on thebasis of his known occluded RCA, ongoing atrial fibrillation is concerning, especially in terms of his stroke risk with his fairly high [id number] score. We once again reviewed recommendations for anticoagulation. He says he is willing to give this consideration. Also of concern, the ejection fraction associated with his recent nuclear stress test was lower than seen by his most recent echo and this raises the concern of some deterioration of his left ventricle. If so, this underscores the needto advance his heart failure medications. PLAN: 1. Trial change of beta costa to long-acting metoprolol succinate 75 mg daily (an effective increase compared with his current dosage) 2. Schedule echocardiogram 3. Once again I stressed the importance of anticoagulation; he is giving this thought Kit Self MD, [facility], [facility] * Huy Butler MD - 09/30/2016 2:20 PM EDT Reason for visit: ASCVD f/u and discuss the stress test History of Present Illness: Mr. Hendrix is a 66 yo male with medical history significant for HTN, DM, CAD s/p LAD and LCX stents, ICM, VT s/p ICD, paroxysmal atrial flutter (declined anticoagulation so far) comes in today for routine f/u and likes to discuss the recently done stress test results. He reports that he went on a one mile hike with bit incline, he had one episode of sharp chest pain that lasted only couple of seconds and had no associated symptoms. He reports occasional central chest tightness with no associated symptoms when stressed out. However, he denies any chest pain/discomfort with mild to moderate exertion like walking and climbing stairs. Denies leg swelling, orthopnea or exertional dyspnea. Reports occasional palpitations without any lightheadedness, dyspnea. Denies any ICD shocks. Because of the above mentioned stress related chest tightness, he underwent nuclear stress test on 09/02/16, the result of which is not available for my review. However it was noted in the telephone notes that it showed small area of ischemia in the RCA distribution. Lats cath in 2013 reports moderate proximal RCA disease and distal total occlusion with bridging collaterals. He was evaluated the ED after the stress test for not feeling well, headache and elevated BP (150s/90s). Per his report, CT head was negative, treated with what sounds like aminophylline. Patient tells me that his SBP has been under 130 ever since. ROS: Positive for chronic dysphagia (reports having hiatal hernia), constipation, joint pains, depression, small ecchymoses at wrist. Denies suicidal or homicidal ideations. PMH: Patient's Problem List Diagnosis Code ??? ASCVD (arteriosclerotic [...] displacement T82.120A ??? Typical atrial flutter I48.3 Current Meds: Reviewed and updated as needed. Allergies: Allergies Allergen Reactions ??? Latex ??? Tape [id number] [Adhesive Tape] Rash tegaderm ok Use paper tape Family History and Social hx: Reviewed the RN note, no chnage Physical Exam: Vitals: 09/30/16 1409 BP: 110/65 Pulse: 65 Constitutional: Well developed, well built, sitting in chair in no apparent distress Eyes: No icterus or pallor Neck: Supple, No carotid bruits CVS: RRR, normal S1and S2, no murmur appreciated. JVP not raised, Distal pulses 2+ bilaterally Pulmonary: Good air entry bilaterally, CTAB. GI: Bowel sounds normal. Abdomen soft, not distended and not tender. Musculoskeletal: No joint swellings or deformities Extremities: No edema, No calf tenderness. Skin: No rashes noted Neuro: Alert, O x 3. No gross focal deficits on limited neuro exam Psych: Mood and affect normal. Not anxious looking. Assessment: 66 yo male with medical history significant for HTN, DM, CAD s/p LAD and LCX stents, ICM, VT s/p ICD, paroxysmal atrial flutter (declined anticoagulation so far) presents for routine f/u.His chest pain is atypical and reportedly small area of ischemia in the RCA territory is likely insignificant given the known distal RCA occlusion with bridging collaterals. EF by stress test was noted to be 39%, his LVEF by echo in 2013 was 56%. He does not have evidence of heart failure. Device interrogation done by EP showed few episodes of rapid irregular rhythm suggestive of a fib and short runs of nonsustained VT. # Atypical chest pain # Possible reduction in EF # Paroxysmal A flutter/fib Plan: -Will review the stress test report when available in eDH. Asked pt to have his PCP scan it -Echo to evaluate LVEF. -Will see him in a month on the same day of echo -Discussed again the risks and benefits, recommended anticoagulation for thromboembolism prophylaxis. Patient to inquire about insurance coverage and co pay etc (for DOACs). He is to let us know for prescription when decided Patient was seen and plan formulated in discussion with Dr. Clair Butler MD account support manager Pager [phone]. documented in this encounter Plan of Treatment Upcoming Encounters Date Type Department Care Team (Late st Contact Info) Description 12/18/2023 10:00 AM EDT Hospital Encounter Non-[place] [address] Arrived documented as of this encounter Visit Diagnoses Diagnosis ASCVD (arteriosclerotic cardiovascular disease) Unspecified cardiovascular disease documented in this encounter Care Teams Radiological Technician Relationship Specialty Start Date End Date Dewayne Carrington MD [address] [place] [address] [place] [address] PCP - General 09/02/16 documented as of this encounter
--- OUTSIDE RECORDS SUMMARY | 2023-11-03 01:26 | XMS_ITS | Encounter Summary ---
[place] [address] Care Team Providers Care Imaging Nurse Name Role Phone Dewayne Carrington MD Primary Care Provider [phone] Encounter Details Date Type Department Care Team (Late Contact Info) Description 12/19/2016 Telephone Cardiology at [address] [address] Suni Cortes, RN Social History Tobacco Use Types Packs/Day [...] encounter Miscellaneous Notes * Telephone Encounter - Suni Cortes RN - 12/19/2016 3:02 PM EDT Pt visited ED yesterday for back pain, was instructed to take ibuprofen, recalled that MD (cardiology) had recommended against this, called to clarify. Advised pt that cardiology recommends tylenol. Pt expressed understanding. documented in this encounter Plan of Treatment Upcoming Encounters Date Type Department Care Team (Late st Contact Info) Description 12/18/2023 10:00 AM EDT Hospital Encounter Non-[place]vasive [place] [address] Arrived documented as of this encounter Visit Diagnoses Not on filedocumented in this encounter Care Teams Imaging Nurse Relationship Specialty Start Date End Date Dewayne Carrington MD [address] [place] [phone] PCP - General 09/02/16 documented as of this encounter
--- OUTSIDE RECORDS SUMMARY | 2023-11-03 01:26 | XMS_ITS | Encounter Summary ---
Author Organization [facility] [place] [address] Care Team Providers Care Lab Rep Name Role Phone Dewayne Carrington MD Primary Care Provider [phone] Encounter Details Date Type Department Care Team (Latest Contact Info) Description 09/23/2017 - 09/23/2017 11:59 PM EDT Hospital Encounter [place] [address] Honorio Vasquez MD [facility] [place] [address] Discharge Disposition: Home Social History Tobacco Use [...] AM EDT Hospital Encounter Non-Invasive [place] [address] Arrived documented as of this encounter Procedures Procedure Name Priority Date/Time Associated Diagnosis Comments FILM LIBRARY STORAGE ONLY DX WRIST Routine 09/23/2017 12:00 AM EDT documented in this encounter Results * Film Library- Storage Only DX Wrist (09/23/2017 12:00 AM EDT) Narrative [facility] RAD - 01/07/2018 5:51 PM EDT This exam is for storage only and is auto-finalizing. Honorio Vasquez MD IMG FILM LIBRARY ORD ERABLES [place], [place] documented in this encounter Visit Diagnoses Not on filedocumented in this encounter Care Teams Lab Rep Relationship Specialty Start Date End Date Dewayne Carrington MD [address] [place] [address] PCP - General 09/02/16 documented as of this encounter
--- OUTSIDE RECORDS SUMMARY | 2023-11-03 01:26 | XMS_ITS | Encounter Summary ---
Author Organization [facility] [place] [address] Care Team Providers Care Industrial [address] Magistrate Name Role Phone Dewayne Carrington MD Primary Care Provider [phone] Encounter Details Date Type Department Care Team (Late st Contact Info) Description 02/18/2018 Telephone [place] [phone] Lucrecia Bhardwaj, RN Social History Tobacco Use Types Packs/Day [...] encounter Miscellaneous Notes * Telephone Encounter - Lucrecia Bhardwaj RN - 02/18/2018 10:53 AM EDT Subjective: Telephone call from patient. He calls to report that he had a cortisone injection yesterday. Dr. Vasquez had warned him that his blood sugars may elevate and they have. He says last nighthis blood sugars were above 300. Today they are around 279. He wonders what to do? Plan: Advised to call his PCP for their advice/treatment. He agrees with the plan. Patient/Responsible libertarian voices an understanding of advice? Yes Patient/Responsible libertarian intends to comply with action/disposition: Yes documented in this encounter Plan of Treatment Upcoming Encounters Date Type Department Care Team (Late st Contact Info) Description 12/18/2023 10:00 AM EDT Hospital Encounter Non-Invasive [place] [address] Arrived documented as of this encounter Visit Diagnoses Not on filedocumented in this encounter Care Teams Industrial [address] Magistrate Relationship Specialty Start Date End Date Dewayne Carrington MD [facility] [place] [address] PCP - General 09/02/16 documented as of this encounter
--- OUTSIDE RECORDS SUMMARY | 2023-11-03 01:26 | XMS_ITS | Encounter Summary ---
Author Organization Counts Include [facility] Address [facility] [place] [address] Care Team Providers Care Extrusion Press Operator Name Role Phone Dewayne Carrington MD Primary Care Provider [phone] Reason for Visit * Reason Comments Right Wrist Pain NXR, RIGHT WRIST GIANLUCA N - ?TFCC INJURY, [facility] * Consultation (Routine) - Closed Specialty Diagnoses / Procedures Referred By Rosa t Referred To Contact Orthopaedics Diagnoses pain in right wrist Homero Villegas MD [address] [place] [address] Sacrlett Vasquez MD [facility] [place] [address] Referral ID Status Reason Start Date Expiration Date Visits Re quested Visits Authorized [id number] Closed 01/08/2018 01/08/2019 1 1 Encounter Details Date Type Department Care Team (Late st Contact Info) Description 02/17/2018 2:45 PM EDT Office [place] [address] Scarlett Vasquez MD [facility] [place] [address] Pain in right wrist Social History Tobacco [...] Sign Reading Time Taken Comments Blood Pressure 119/72 02/17/2018 2:54 PM EDT Pulse 81 02/17/2018 2:54 PM EDT Temperature - - Respiratory Rate - - Oxygen Saturation - - Inhaled Oxygen Concentration - - Weight 93 kg (205 lb) 02/17/2018 2:54 PM EDT clay bal Height 186.7 cm (6' 1.5) 02/17/2018 2:54 PM EDT verbal Body Mass Index 26.68 02/17/2018 2:54 PM EDT documented in this encounter Progress Notes * Scarlett Vasquez MD - 02/17/2018 2:45 PM EDT I examined Marquez Hendrix and I agree with Dr. Desai's note. He presents with right wrist pain and swelling that occurred after a fall in April 2017. He reports that he fell with his right hand behind him and his wrist in flexion. He developed ulnar-sided wrist pain and swelling which has persisted. He underwent a CT arthrogram which showed a central TFCC tear. No other obvious pathology of significance was seen in his wrist joint. His exam is somewhat difficult to understand. He has fairly diffuse right wrist pain although he does have most of the pain over the ulnar aspect of the wrist. He describes a lot of the pain is beingat the proximal to the ulnar head. Virtually anywhere I palpate around his right wrist is uncomfortable but most of it is over the sixth extensor compartment, and over the TFCC itself. He has minimalpain over his fovea and some pain over his pisotriquetral interval. He has no pain over the hook ofthe hamate. He also has a boggy sensation with palpation over his extensor tendons which may be consistent with tenosynovitis. In order to better discern the source of his pain, I did offer him an intra- articular corticosteroid injection. He was told the risks of this include infection, nerve injury, steroid flare, depigmentation of skin, no relief of symptoms, and hyperglycemia. He opted to proceed. A preinjection timeout was first done. Under sterile conditions I then injected his right wrist viathe 6R portal site with 2 cc 1% lidocaine and 12 mg of betamethasone. He stayed in the clinic for ahalf hour to 45 minutes and noticed only minimal response to this injection. This makes me believe that his TFCC tear is less likely the source of his pain. Other potential sources could be extensor tenosynovitis as well as sixth extensor compartment tendinitis or even sixth extensor compartment sub-sheath rupture. We will get some labs looking for inflammatory sources that include rheumatoid factor, SONAL, anti-CCP. He also notes that he has been having some pain in his left wrist and he does have a mildly boggy appearance of his left wrist and therefore an inflammatory source should be considered. I will see him back in 4-6 weeks to get a final assessment of his response to steroid. We will also try to figureout whether or not his defibrillator is potentially compatible with our extremity MRI in which casean MRI could be considered for his right arm if it is compatible. This consult took close to 90 minutes to complete. * Sherman Desai MD - 02/17/2018 2:45 PM EDT Orthopaedic Surgery Clinic Note Chief complaint: Right Wrist Pain Problem List Items Addressed This Visit None History of present illness: Marquez Hendrix is a 67 y.o. zuyst-noqw-wwjtffrp male with history of Afib on Xarelto, pacemaker, and DMII who presents as a referral from Dr. Villegas for evaluation of right ulnar-sided wrist pain 8 months s/p injury resulting in a non-displaced radial styloid fracture. Mr. Hendrix reports falling on ice in May 2017, landing on a flexed right wrist that resulted in immediate pain. He was treated initially with a soft cast followed by a removable thermoplast splint for a total of four months with no improvement in his pain. He reports no pain at rest with his wrist in a neutral position. He experiences significant pain in the ulnar side of his wrist and jus t proximal to the ulnar head when putting pressure on his extended wrist such as when pushing off against a wall. He also has pain when turning door knobs or opening a door with a moya and when carrying groceries. He enjoys cycling but has not been able cycle due to the pain in his wrist when holding onto handlebars. He also sometimes experiences sharp pain radiating from the dorsal wrist to the elbow when extending the left long and ring fingers at the MCP joints. He denies having any numbness or tingling. Past medical history: Patient Active Problem List Diagnosis Date Noted ??? ASCVD (arteriosclerotic cardiovascular disease) 10/17/2010 Priority: High ??? Typical atrial flutter 07/18/2014 ??? Atrial pacemaker lead displacement 04/10/2014 ??? ICD (implantable cardioverter-defibrillator), dual, in situ 01/11/2014 ??? Hypertension 01/09/2014 ??? Hypomagnesemia 01/09/2014 ??? Sustained VT (ventricular tachycardia) 01/08/2014 ??? Depression 01/06/2014 ??? Dermatitis 06/17/2013 ??? Irritant contact dermatitis 05/27/2013 ??? T2DM (type 2 diabetes mellitus) 05/10/2013 ??? Esophageal reflux 05/10/2013 ??? IBS (irritable bowel syndrome) 11/17/2011 ??? Diabetes mellitus 10/17/2010 ??? HTN (hypertension) 10/17/2010 ??? Elevated cholesterol 10/17/2010 Past Surgical History: Past Surgical History: Procedure Laterality Date ??? EGD WITH BIOPSY (WRVU 2.49) N/A 12/17/2011 Performed by Kyra Vyas MD at [facility] ??? PRO UPPER GI ENDOSCOPY, BIOPSY 12/17/2011 EGD WITH BIOPSY performed by KYRA VYAS at [facility] Medications: ??? aspirin 81 mg Tablet, Delayed Release (E.C.) ??? rivaroxaban (XARELTO) 20 mg Tablet ??? glipiZIDE (GLUCOTROL) 5 mg Tablet ??? MAGNESIUM CARBONATE ORAL ??? meTOPROLOL succinate (TOPROL-XL) 25 mg Tablet Sustained Release 24 hr ??? pantoprazole (PROTONIX) 40 mg Tablet, Delayed Release (E.C.) ??? liraglutide (VICTOZA) 0.6 mg/0.1 mL (18 mg/3 mL) Pen Injector ??? atorvastatin (LIPITOR) 80 mg Tablet ??? vortioxetine (TRINTELLIX) 20 mg Tablet ??? CALCIUM CARBONATE/VITAMIN D3 (VITAMIN D-3 ORAL) ??? traMADol (ULTRAM) 50 mg Tablet ??? lisinopril (PRINIVIL;ZESTRIL) 20 mg Tablet ??? zolpidem (AMBIEN) 10 mg tablet ??? multivitamin capsule ??? LANCETS MISC ??? lamotrigine (LAMICTAL) 100 mg tablet ??? alprazolam (XANAX XR) 3 mg 24 hr tablet ??? metformin (GLUCOPHAGE) 1,000 mg tablet ??? nitroGLYcerin (NITROSTAT) 0.4 mg SL tablet Allergies: Allergies Allergen Reactions ??? Latex ??? Tape 1X5yd [Adhesive Tape] Rash tegaderm ok Use paper tape Social history: Social History Tobacco Use ??? Smoking status: Former Smoker Packs/day: 0.75 Years: 25.00 Pack years: 18.75 Types: Cigarettes, e-Cigarettes Last attempt to quit: 12/19/2013 Years since quittin.1 ??? Smokeless tobacco: Never Used ??? Tobacco comment: using e cigarettes Substance Use Topics ??? Alcohol use: No Review of systems: Patient denies fever, chills, chest pain, shortness of breath, nausea, vomiting, numbness, tingling. Vital signs: Most Recent Vitals: 02/17/18 1454 BP: 119/72 Pulse: 81 Physical Exam: General: Healthy appearing gentleman in no apparent distress, alert and oriented, answering questions appropriately, pleasant affect. Resp: Normal respiratory effort on room air. CV: Regular rate and rhythm by peripheral palpation. Right Upper Extremity: There are no overlying skin lesions. No gross deformity. The ulnar side of the wrist is swollen, particularly over the dorsal ulnar head. There is tenderness to palpation over the dorsal ulnar head and the 6th extensor compartment. Wrist extension is lacking 10 degrees compared to the contralateral side. There is ulnar-sided wrist pain with wrist supination/pronation and there is significant pain with axial loading of an extended wrist. Motor intact to wrist flexion/extension, digit flexion/extension, AIN, IO, EPL. There is no observable instability of the DRUJ. Negative fovea sign. Sensation is intact to light touch in the M/R/U nerve distributions. Palpable radial pulse, fingers warm and well perfused. Imaging: Multiple radiographs of the right wrist extending as far back as 06/14/[address] arthrogram of the right wrist from 12/31/17 were personally reviewed. Early radiographs demonstrate a non-displaced radial styloid fracture. The fracture is well-healed on recent CT. CTA does demonstrate a type 1A TFCC injury. No other significant pathology noted. Assessment/Plan: 67 y.o. qaigp-ewlo-uolgsngj male referred by Dr. Villegas for evaluation of persistent ulnar-sided right wrist pain after non-displaced right radial styloid fracture occurring in May 2017. CT arthrogram is significant for a central tear of the TFCC (type 1A injury), but the patient's physical exam reveals generalized tenderness both at the ulnar wrist joint and proximal along the ulna. An intraarticular corticosteroid/lidocaine injection was performed by Dr. Vasquez in clinic today to serve both diagnostic and therapeutic purposes (please see his note). After 30-45 minutes, the patient was unable to appreciate any significant difference in his discomfort, leading us tobelieve that the etiology of his pain may not be intraarticular. Other diagnoses on the differential include extensor tenosynovitis, 6th extensor compartment sub-sheath rupture. We will plan to see Mr. Hendrix back in 4-6 weeks to see how he responded to the steroid. If he is not feeling better in 2-3 weeks, he was instructed to call us. In that event, we will order an MRI to assess the extraarticular structures in addition to the right wrist joint itself. He has not had an MRI prior due to pacemaker being present. [place] [facility] readily available. In the case an MRI is needed, this will make it easier for a safety and compatibility e valuation to be performed. Additionally, lab orders were placed to evaluate for systemic disease given Mr. Hendrix also reports some intermittent discomfort in his left wrist. Specific, lab orders were placed for Anti-CCP, RA factor, SONAL, ESR, and CRP. All questions were answered and patient agreeable with plan. Patient seen and plan formulated with Dr. Vasquez. Sherman Desai MD Orthopaedic Surgery PGY3 documented in this encounter Miscellaneous Notes * Addendum Note - Scarlett Vasquez MD - 02/17/2018 2:45 PM EDTAddended by: SCARLETT VASQUEZ on: 02/18/2018 07:42 PM Modules accepted: Level of Service documented in this encounter Plan of Treatment Upcoming Encounters Date Type Department Care Team (Late st Contact Info) Description 12/18/2023 10:00 AM EDT Hospital Encounter Non-Invasive [place] [address] Arrived documented as of this encounter Visit Diagnoses Diagnosis Pain in right wrist Pain in joint, forearm documented in this encounter Administered Medications Inactive Administered Medications - up to 3 most recent administrations Medication Order MAR Action Action Date Dose Rate Site betamethasone acetate-betamethasone sodium phosphate (CELESTONE) injection 12 mg 12 mg, Intra-articular, ONCE, 1 dose, On Thu02/17/18 at 1715, Injected by physician, Routine Given 02/17/2018 4:56 PM EDT 12 mg lidocaine (XYLOCAINE) 10 mg/mL (1 %) injection 20 mg 20 mg, Subdermal, ONCE, 1 dose, On Thu02/17/18 at 1715, Routine Given 02/17/2018 4:56 PM EDT 20 mg documented in this encounter Care Teams Extrusion Press Operator Relationship Specialty Start Date End Date Dewayne Carrington MD [address] [place] [address] PCP - General 09/02/16 documented as of this encounter
--- OUTSIDE RECORDS SUMMARY | 2023-11-03 01:26 | XMS_ITS | Encounter Summary ---
[place] [address] Care Team Providers Care Switchboard Receptionist Name Role Phone Dewayne Carrington MD Primary Care Provider [phone] Encounter Details Date Type Department Care Team ([facility] Contact Info) Description 01/12/2017 External Results Cardiology at [address] [address] Dewayne Carrington MD [address] [place] [phone] Social History Tobacco Use Types Packs/Day Years [...] AM EDT Hospital Encounter Non-Invasive [place] [address] Arrived documented as of this encounter Procedures Procedure Name Priority Date/Time Associated Diagnosis Comments EP DEVICE SCAN Routine 01/06/2017 documented in this encounter Results * Scan Doc: EP Device (01/06/2017) Anatomical Region Laterality Modality Other Dewayne Carrington MD MEDIA MGR SCAN EXT O RDR/RSLT documented in this encounter Visit Diagnoses Not on filedocumented in this encounter Care Teams Switchboard Receptionist Relationship Specialty Start Date End Date Dewayne Carrington MD [address] [facility] [place] [address] PCP - General 09/02/16 documented as of this encounter
--- OUTSIDE RECORDS SUMMARY | 2023-11-03 01:26 | XMS_ITS | Encounter Summary ---
[place] [address] Care Team Providers Care Fermenter Wine Name Role Phone Dewayne Carrington MD Primary Care Provider [phone] Encounter Details Date Type Department Care Team (Late st Contact Info) Description 02/25/2017 Orders Only Cardiology at [address] [address] Social History Tobacco Use Types Packs/Day Years [...] AM EDT Hospital Encounter [place] [address] Arrived documented as of this encounter Procedures Procedure Name Priority Date/Time Associated Diagnosis Comments CARDIAC DEVICE CHECK - REMOTE PATIENT INITIATED Routine 02/25/2017 1:24 PM EST documented in this encounter Results * Cardiac device check - Remote Patient Initiated (02/25/2017 1:24 PM EST) Date Time Interrogation Session [id number] IDCO Type Interrogation Session Remote Patient Initiated IDCO Clinic Name [facility] IDCO Battery Date Time of Measurements [id number] IDCO Battery Status Beginning of Service IDCO Battery Remaining Longevity 102 mo IDCO Battery Remaining Percentage 100 % IDCO Capacitor Last Charge Date Time IDCO Capacitor Charge Time 10.4 s IDCO Capacitor Charge Type Reformation IDCO Capacitor Last Charge Date Time [id number] IDCO Capacitor Charge Time 3.8 s IDCO Capacitor Charge Energy 21 J IDCO Capacitor Charge Type Shock IDCO Episode Identifier [id number] IDCO Episode Date Time [id number] IDCO Episode Type Category Periodic EGM IDCO Episode Vendor Type Category APMRT IDCO Episode Detection And Therapy Details Presenting EGM IDCO Episode Identifier [id number] IDCO Episode Date Time [id number] IDCO Episode Type Category Other IDCO Episode Vendor Type Category XANDER IDCO Episode Detection Interval Ventricular 909 ms IDCO Episode Duration 56 s IDCO Episode Detection And Therapy Details IDCO Episode Identifier [id number] IDCO Episode Date Time [id number] IDCO Episode Type Category VT IDCO Episode Vendor Type Category NSVT IDCO Episode Type Induced Flag NO IDCO Episode Detection Interval Ventricular 349 ms IDCO Episode Duration 7 s IDCO Episode Detection And Therapy Details NonSustV IDCO Episode Identifier [id number] IDCO Episode Date Time IDCO Episode Type Category Other IDCO Episode Vendor Type Category XANDER IDCO Episode Detection Interval Ventricular 882 ms IDCO Episode Duration 55 s IDCO Episode Detection And Therapy Details IDCO Episode Identifier [id number] IDCO Episode Date Time [id number] IDCO Episode Type Category Other IDCO Episode Vendor Type Category XANDER IDCO Episode Detection Interval Ventricular 870 ms IDCO Episode Duration 53 s IDCO Episode Detection And Therapy Details IDCO Episode Identifier Q IDCO Episode Date Time IDCO Episode Type Category Other IDCO Episode Vendor Type Category XANDER IDCO Episode Detection Interval Ventricular 1,000 ms IDCO Episode Duration 58 s IDCO Episode Detection And Therapy Details IDCO Episode Identifier [id number] IDCO Episode Date Time IDCO Episode Type Category Other IDCO Episode Vendor Type Category XANDER IDCO Episode Detection Interval Ventricular 1,034 ms IDCO Episode Duration 62 s IDCO Episode Detection And Therapy Details Q IDCO Episode Identifier [id number] IDCO Episode Date Time [id number] IDCO Episode Type Category Other IDCO Episode Vendor Type Category XANDER IDCO Episode Detection Interval Ventricular 909 ms IDCO Episode Duration 54 s IDCO Episode Detection And Therapy Details RYQ IDCO Episode Identifier [id number] IDCO Episode Date Time [id number] IDCO Episode Type Category Other IDCO Episode Vendor Type Category XANDER IDCO Episode Detection Interval Ventricular 923 ms IDCO Episode Duration 54 s IDCO Episode Detection And Therapy Details Q IDCO Episode Identifier [id number] IDCO Episode Date Time [id number] IDCO Episode Type Category Other IDCO Episode Vendor Type Category XANDER IDCO Episode Detection Interval Ventricular 909 ms IDCO Episode Duration 54 s IDCO Episode Detection And Therapy Details Q IDCO Episode Identifier [id number] IDCO Episode Date Time [id number] IDCO Episode Type Category Other IDCO Episode Vendor Type Category XANDER IDCO Episode Detection Interval Ventricular 909 ms IDCO Episode Duration 53 s IDCO Episode Detection And Therapy Details Q IDCO Episode Identifier [id number] IDCO Episode Date Time [id number] IDCO Episode Type Category Other IDCO Episode Vendor Type Category XANDER IDCO Episode Detection Interval Ventricular 909 ms IDCO Episode Duration 56 s IDCO Episode Detection And Therapy Details IDCO Episode Statistic Type Category VF IDCO Episode Statistic Vendor Type Category VF IDCO Episode Statistic Recent Count 0 IDCO Episode Statistic Recent Date Time Start 20170127 IDCO Episode Statistic Recent Date Time End 20170225 IDCO Episode Statistic Type Category VT IDCO Episode Statistic Vendor Type Category VT IDCO Episode Statistic Recent Count 0 IDCO Episode Statistic Recent Date Time Start 20170127 IDCO Episode Statistic Recent Date Time End 20170225 IDCO Episode Statistic Type Category VT IDCO Episode Statistic Vendor Type Category VT-1 IDCO Episode Statistic Recent Count 0 IDCO Episode Statistic Recent Date Time Start 20170127 IDCO Episode Statistic Recent Date Time End 20170225 IDCO Episode Statistic Type Category Monitor IDCO Episode Statistic Vendor Type Category IDCO Episode Statistic Recent Count 0 IDCO Episode Statistic Recent Date Time Start 20170127 IDCO Episode Statistic Recent Date Time End 20170225 IDCO Episode Statistic Type Category Other IDCO Episode Statistic Vendor Type Category IDCO Episode Statistic Recent Count 0 IDCO Episode Statistic Recent Date Time Start 20170127 IDCO Episode Statistic Recent Date Time End 20170225 IDCO Episode Statistic Type Category VT IDCO Episode Statistic Vendor Type Category NSVT IDCO Episode Statistic Recent Count 1 IDCO Episode Statistic Recent Date Time Start 20170127 IDCO Episode Statistic Recent Date Time End 20170225 IDCO Episode Statistic Type Category AT/AF IDCO Episode Statistic Vendor Type Category ATR IDCO Episode Statistic Recent Count 0 IDCO Episode Statistic Recent Date Time Start 20170127 IDCO Episode Statistic Recent Date Time End 20170225 IDCO Albaro Setting AT Mode Switch Mode [...] E162 IDCO Implantable Pulse Generator Serial Number [id number] IDCO Implantable Pulse Generator Purification Operator [employer] IDCO Implantable Pulse Generator Implant Date 20140110 IDCO Implantable Lead Model 4136 IDCO Implantable Lead Serial Number [id number] IDCO Implantable Lead Purification Operator Guidant IDCO Implantable Lead Implant Date 20130421 IDCO Implantable Lead Polarity Type Bipolar Lead IDCO Implantable Lead Location Right Atrium IDCO Implantable Lead Model 0292 IDCO Implantable Lead Serial Number [id number] IDCO Implantable Lead Purification Operator [place] [employer] IDCO Implantable Lead Implant Date IDCO Implantable Lead Location Right Ventricle IDCO Lead Channel Measurements Date and Time Start 20170127 IDCO Lead Channel Measurements Date and Time End 20170224 IDCO Lead Channel Sensing Intrinsic Amplitude Mean 5.3 mV IDCO Lead Channel Sensing Polarity Bipolar IDCO Lead Channel Pacing Threshold Amplitude 0.4 V IDCO Lead Channel Pacing Threshold Pulse Width 0.5 ms IDCO Lead Channel Pacing Threshold Measurement Method Keno Attendant Manual IDCO Lead Channel Pacing Threshold Polarity Bipolar IDCO Lead Channel Impedance Value 619 ohms IDCO Lead Channel Impedance Polarity Bipolar IDCO Lead Channel Measurements Date and Time Start 20170127 IDCO Lead Channel Measurements Date and Time End 20170224 IDCO Lead Channel Sensing Intrinsic Amplitude Mean 10.8 mV IDCO Lead Channel Sensing Polarity Bipolar IDCO Lead Channel Pacing Threshold Amplitude 1.2 V IDCO Lead Channel Pacing Threshold Pulse Width 0.5 ms IDCO Lead Channel Pacing Threshold Measurement Method Keno Attendant Manual IDCO Lead Channel Pacing Threshold Polarity Bipolar IDCO Lead Channel Impedance Value 610 ohms IDCO Lead Channel Impedance Polarity Bipolar IDCO Lead High Voltage Channel Date Time 20170224 IDCO Lead High Voltage Channel Impedance 99 ohms IDCO Lead High Voltage Channel Measurement Type Low Voltage Pulse IDCO Statistic Date Time Start 20170127 IDCO Statistic Date Time End 20170225 IDCO Albaro Statistic Date Time Start 20170127 IDCO Albaro Statistic Date Time End 20170225 IDCO [place]aro Statistic RA Percent Paced 0 % IDCO Albaro Statistic RV Percent Paced 0 % IDCO Therapy Statistic Recent Date Time Start 20170127 IDCO Therapy Statistic Recent Date Time End 20170225 IDCO Therapy Statistic Recent Shocks Delivered 0 IDCO Therapy Statistic Total Date Time Start 20140110 IDCO Therapy Statistic Total Date Time End 20170225 IDCO Therapy Statistic Total Shocks Delivered 2 IDCO Therapy Statistic Recent Shocks Aborted 0 IDCO Therapy Statistic Total Shocks Aborted 0 IDCO Therapy Statistic Recent ATP Delivered 0 IDCO Therapy Statistic Total ATP Delivered 1 IDCO Anatomical Region Laterality Modality Other 02/25/2017 1:24 PM EST Physician Cardiology IMPLANTABLE CARD IAC DEVICE documented in this encounter Visit Diagnoses Not on filedocumented in this encounter Care Teams Fermenter Wine Relationship Specialty Start Date End Date Dewayne Carrington MD [address] [place] [address] PCP - General 09/02/16 documented as of this encounter
--- OUTSIDE RECORDS SUMMARY | 2023-11-03 01:26 | XMS_ITS | Encounter Summary ---
Author Organization [facility] [place] [address] Care Team Providers Care Fixed Capital Clerk Name Role Phone Dewayne Carrington MD Primary Care Provider [phone] Encounter Details Date Type Department Care Team (Latest Contact Info) Description 06/14/2017 - 06/14/2017 11:59 PM EST Hospital Encounter [place] [address] Honorio Vasquez MD [facility] [place] [address] Discharge Disposition: Home Social History Tobacco Use [...] AM EDT Hospital Encounter [place] [address] Arrived documented as of this encounter Procedures Procedure Name Priority Date/Time Associated Diagnosis Comments FILM LIBRARY STORAGE ONLY DX UPPER EXTREMITY Routine 06/14/2017 12:00 AM EST documented in this encounter Results * Film Library- Storage Only DX Upper Extremity (06/14/2017 12:00 AM EST) Narrative RAHEEL RAD - 01/07/2018 5:50 PM EDT This exam is for storage only and is auto-finalizing. Honorio Vasquez MD IMG FILM LIBRARY ORD ERABLES [place], [place] documented in this encounter Visit Diagnoses Not on filedocumented in this encounter Care Teams Fixed Capital Clerk Relationship Specialty Start Date End Date Dewayne Carrington MD [address] [place] [address] PCP - General 09/02/16 documented as of this encounter
--- OUTSIDE RECORDS SUMMARY | 2023-11-03 01:26 | XMS_ITS | Encounter Summary ---
Author Organization [facility] [place] [address] Care Team Providers Care Designer And Patternmaker Name Role Phone Dewayne Carrington MD Primary Care Provider [phone] Encounter Details Date Type Department Care Team (Late st Contact Info) Description 01/19/2017 Telephone Cardiology at [address] [phone] Gisselle Sutherland RN Social History Tobacco Use [...] Telephone Encounter - Gisselle Sutherland RN - 01/19/2017 9:51 AM EDT He developed an irregular pulse after getting up this am. Rates in the 80's. BP 115/76. He feels weak and a little nauseated. With a history of both a-fib and v-tach advised he should go to the ED for evaluation. He agrees. documented in this encounter Plan of Treatment Upcoming Encounters Date Type Department Care Team (Late st Contact Info) Description 12/18/2023 10:00 AM EDT Hospital Encounter [place] [address] Arrived documented as of this encounter Visit Diagnoses Not on filedocumented in this encounter Care Teams Designer And Patternmaker Relationship Specialty Start Date End Date Dewayne Carrington MD [facility] [place] [address] PCP - General 09/02/16 documented as of this encounter
--- OUTSIDE RECORDS SUMMARY | 2023-11-03 01:26 | XMS_ITS | Encounter Summary ---
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 Procedures Echocardiogram Transthoracic(Leb) Huy Butler MD [facility] [place] [address] [facility] [place] [address] Referral ID Status Reason Start Date Expiration Date V isits Requested Visits Authorized [id number] Closed Specialty Service Requested 10/01/2016 10/01/2017 1 1 Reason for Visit * Diagnostic Test (Routine) - Closed Specialty Diagnoses / Procedures Referred By Contac t Referred To Contact Cardiology Diagnoses 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 Procedures Echocardiogram Transthoracic(Leb) Huy Butler MD [facility] [place] [address] [facility] [place] [address] Referral ID Status Reason Start Date Expiration Date V isits Requested Visits Authorized [id number] Closed Specialty Service Requested 10/01/2016 10/01/2017 1 1 Encounter Details Date Type Department Care Team (Latest Contact Info) Description 11/06/2016 10:44 AM EDT - 11/06/2016 11:59 PM EDT Hospital Encounter Non-Invasive Cardiology Lab [facility] [place] [address] Kit Self MD [facility] 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 Reported on 09/30/2016 atorvastatin (LIPITOR) 80 mg Tablet Take 80 mg by mouth daily. 12/12/2020 apixaban (ELIQUIS) 5 mg Tablet Take 1 tablet by mouth 2 times daily. 60 tablet 11 11/06/2016 03/03/2017 meTOPROLOL tartrate (LOPRESSOR) 25 mg Tablet take 1 tablet by mouth twice a day 180 tablet 3 04/21/2016 01/27/2017 pramipexole (MIRAPEX) 0.125 mg Tablet Take 0.125 mg by mouth daily. 01/27/2017 vortioxetine (TRINTELLIX) 20 mg Tablet Take 20 mg by mouth daily. 09/01/2018 CALCIUM CARBONATE/VITAMIN D3 (VITAMIN D-3 ORAL) Take 1 capsule by mouth daily. 10/19/2020 magnesium 250 mg Tablet Take 500 mg by mouth daily. 01/27/2017 lisinopril (PRINIVIL;ZESTRIL) 20 mg Tablet Take 1 tablet by mouth daily. 30 tablet 12 01/09/2014 03/18/2022 pantoprazole (PROTONIX) 40 mg tablet Take 1 tablet by mouth 2 times daily. 90 tablet 6 05/14/2013 01/27/2017 lamotrigine (LAMICTAL) 100 mg tablet Take 200 mg by mouth daily. 09/01/2018 alprazolam (XANAX XR) 3 mg 24 hr tablet Take 3 mg by mouth nightly. 09/18/2020 hydrOXYzine (ATARAX) 25 mg tablet Take 25 mg by mouth 3 times daily as needed. Reported on 09/30/2016 01/27/2017 glipizide (GLUCOTROL) 5 mg 24 hr tablet Take 10 mg by mouth daily. 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 [id number] ?Sex: ?M ? Site Loc: ? [facility] ?Ht / Wt: ??185(cm)/91(kg) Pt. Loc: ?Echo Lab ?BSA: ?2.15 Study Date: ?? 11/06/2016 ?Pt. Type: Outpatient Tape: ? Referring: CAS Referring: Kit Self Reading: Huseyin Espinoza ([id number]) Ethnic Origins Teacher: Stef Hayden Diagnosis: *ICD-10-PCS Atherosclerotic heart disease of saxman coronary artery without angina pectoris (I25.10) CPT Codes: *Echo Full (92940) *Spectral Doppler (47575) *Color Doppler (77597) *Optison (39981FO) Rhythm: ? Paced rhythm BP: ? 115/72 [...] E-wave Vmax ?0.7 ?m/sec ? MV deceleration qwwn553.6 ?msec ? MV A-wave Vmax ?0.7 ?m/sec [...] ? Mid-Inferior ?Hypokinetic ? Mid-Inferoseptal ?Normal ? Cicero-Septal ? Normal ? Cicero-Anterior ? Normal ? Cicero-Lateral ?Normal ? Cicero-Inferior ? Hypokinetic ? Cicero-Tip ?Normal ? This report has been electronically signed by: Huseyin Espinoza MD ? 11/06/2016 12:33:49 Images reviewed and interpretation verified [facility] Cardiac Ultrasound Laboratory Procedure Note Huseyin Espinoza MD - 11/06/2016 Procedure: Transthoracic Echocardiogram Patient: PAMELA Gordon (Age): 1950(66y) Med Rec#: [id number] Sex: M Site Loc: [facility] Ht / Wt: 185(cm)/91(kg) Pt. Loc: Echo Lab BSA: 2.15 Study Date: 11/06/2016 Pt. 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 documented in this encounter Administered Medications Inactive Administered Medications - up to 3 most recent administrations Medication Order MAR Action Action Date Dose Rate Site perflutren protein-A microspheres (OPTISON) 0.22 mg/mL injection 3 mL 3 mL, Intravenous, ONCE PRN, 1 dose, Starting on Deloris 11/06/16 at 1157, Until Deloris 11/06/16 at 1100, Per Protocol, Routine Given 11/06/2016 11:00 AM EDT 3 mLs documented in this encounter Care Teams Rubber Calender Helper Relationship Specialty Start Date End Date Dewayne Carrington MD [facility] [place] [address] PCP - General 09/02/16 documented as of this encounter
--- OUTSIDE RECORDS SUMMARY | 2023-11-03 01:26 | XMS_ITS | Encounter Summary ---
Author Organization [facility] [place] [address] Care Team Providers Care Community Development Technician Name Role Phone Dewayne Carrington MD Primary Care Provider [phone] Encounter Details Date Type Department Care Team (Late st Contact Info) Description 10/07/2017 Telephone Cardiology at [address] [phone] Ruben Davenport Social History Tobacco Use Types Packs/Day Years [...] encounter Miscellaneous Notes * Telephone Encounter - Rbuen Davenport - 10/07/2017 10:22 AM EDT Spoke with Patient in regards to scheduling follow up in cardiology. He stated he is being [facility] at [facility] documented in this encounter Plan of Treatment Upcoming Encounters Date Type Department Care Team (Late st Contact Info) Description 12/18/2023 10:00 AM EDT Hospital Encounter Non[place] [address] Arrived documented as of this encounter Visit Diagnoses Not on filedocumented in this encounter Care Teams Community Development Technician Relationship Specialty Start Date End Date Dewayne Carrington MD [address] [place] [address] PCP - General 09/02/16 documented as of this encounter
--- OUTSIDE RECORDS SUMMARY | 2023-11-03 01:26 | XMS_ITS | Encounter Summary ---
Author Organization [facility] Address [facility] [place] [address] Care Team Providers Care Special Forces Officer Name Role Phone Dewayne Carrington MD Primary Care Provider [phone] Encounter Details Date Type Department Care Team (Latest Contact Info) Description 12/31/2017 12:05 AM EDT - 12/31/2017 11:59 PM EDT Hospital Encounter [place] [address] Honorio Vasquez MD [facility] [place] [address] Discharge Disposition: Home Social History Tobacco Use [...] AM EDT Hospital Encounter Non-[place] [address] Arrived documented as of this encounter Procedures Procedure Name Priority Date/Time Associated Diagnosis Comments FILM LIBRARY STORAGE ONLY CT UPPER EXTREMITY Routine 12/31/2017 12:05 AM EDT documented in this encounter Results * Film Library- Storage Only CT Upper Extremity (12/31/2017 12:05 AM EDT) Narrative RAHEEL WANG - 01/07/2018 5:58 PM EDT This exam is for storage only and is auto-finalizing. Honorio Vasquez MD IMG FILM LIBRARY ORD ERABLES [place], [place] documented in this encounter Visit Diagnoses Not on filedocumented in this encounter Care Teams Special Forces Officer Relationship Specialty Start Date End Date Dewayne Carrington MD [address] [place] [address] PCP - General 09/02/16 documented as of this encounter
--- OUTSIDE RECORDS SUMMARY | 2023-11-03 01:27 | XMS_ITS | Encounter Summary ---
[place] [address] Care Team Providers Care Double Bass Player Name Role Phone Ángel Bingham MD Primary Care Provider [phone] Encounter Details Date Type Department Care Team (Late st Contact Info) Description 02/05/2015 Orders Only Cardiology at [address] [address] Social History Tobacco Use Types Packs/Day Years Used Date Smoking Tobacco: Former Cigarettes 0.8 25 0 12/19/1988 - 12/19/2013 Smokeless Tobacco: Never Comments:using e cigarettes Alcohol [...] AM EDT Hospital Encounter Non-Invasive [place] [address] Arrived documented as of this encounter Procedures Procedure Name Priority Date/Time Associated Diagnosis Comments CARDIAC DEVICE CHECK - REMOTE PATIENT INITIATED Routine 02/05/2015 3:28 AM EDT documented in this encounter Results * Cardiac device check - Remote Patient Initiated (02/05/2015 3:28 AM EDT) Date Time Interrogation Session [id number] IDCO Type Interrogation Session Remote Patient Initiated IDCO Clinic Name [facility] IDCO Battery Date Time of Measurements [id number] IDCO Battery Status Beginning of Service IDCO Battery Remaining Longevity 126 mo IDCO Battery Remaining Percentage 100 % IDCO Capacitor Last Charge Date Time IDCO Capacitor Charge Time 10.0 s IDCO Capacitor Charge Type Reformation IDCO Episode Identifier APM-12 IDCO Episode Date Time [id number] IDCO Episode Type Category Periodic EGM IDCO Episode Vendor Type Category APMRT IDCO Episode Detection And Therapy Details Presenting EGM [id number] Episode Date Time [id number] IDCO Episode Type Category Other IDCO Episode Vendor Type Category XANDER IDCO Episode Detection Interval Ventricular 1,132 ms IDCO Episode Duration 63 s IDCO Episode Detection And Therapy Details IDCO Episode Identifier [facility]-42 IDCO Episode Date Time [id number] IDCO Episode Type Category Other IDCO Episode Vendor Type Category XANDER IDCO Episode Detection Interval Ventricular 1,154 ms IDCO Episode Duration 63 s IDCO Episode Detection And Therapy Details IDCO Episode Identifier [facility]-24 IDCO Episode Date Time [id number] IDCO Episode Type Category Other IDCO Episode Vendor Type Category XANDER IDCO Episode Detection Interval Ventricular 1,132 ms IDCO Episode Duration 63 s IDCO Episode Detection And Therapy Details IDCO Episode Identifier [id number] IDCO Episode Date Time [id number] IDCO Episode Type Category Other IDCO Episode Vendor Type Category XANDER IDCO Episode Detection Interval Ventricular 1,091 ms IDCO Episode Duration 63 s IDCO Episode Detection And Therapy Details IDCO Episode Identifier [id number] IDCO Episode Date Time [id number] IDCO Episode Type Category Other IDCO Episode Vendor Type Category XANDER IDCO Episode Detection Interval Ventricular 1,304 ms IDCO Episode Duration 63 s IDCO Episode Detection And Therapy Details IDCO Episode Identifier [id number] IDCO Episode Date Time [id number] IDCO Episode Type Category Other IDCO Episode Vendor Type Category XANDER IDCO Episode Detection Interval Ventricular 1,304 ms IDCO Episode Duration 64 s IDCO Episode Detection And Therapy Details IDCO Episode Identifier [facility]-92 IDCO Episode Date Time [id number] IDCO Episode Type Category Other IDCO Episode Vendor Type Category XANDER IDCO Episode Detection Interval Ventricular 1,304 ms IDCO Episode Duration 63 s IDCO Episode Detection And Therapy Details [facility] IDCO Episode Identifier [facility]-9336 IDCO Episode Date Time [id number] IDCO Episode Type Category Other IDCO Episode Vendor Type Category XANDER IDCO Episode Detection Interval Ventricular 1,304 ms IDCO Episode Duration 63 s IDCO Episode Detection And Therapy Details [facility] IDCO Episode Identifier [facility]-9335 IDCO Episode Date Time [id number] IDCO Episode Type Category Other IDCO Episode Vendor Type Category XANDER IDCO Episode Detection Interval Ventricular 1,304 ms IDCO Episode Duration 63 s IDCO Episode Detection And Therapy Details [facility] IDCO Episode Identifier [facility]-9334 IDCO Episode Date Time [id number] IDCO Episode Type Category Other IDCO Episode Vendor Type Category XANDER IDCO Episode Detection Interval Ventricular 1,304 ms IDCO Episode Duration 64 s IDCO Episode Detection And Therapy Details [facility] IDCO Episode Identifier [id number] IDCO Episode Date Time [id number] IDCO Episode Type Category AT/AF IDCO Episode Vendor Type Category ATR IDCO Episode Detection Interval Atrial 297 ms IDCO Episode Duration 20 s IDCO Episode Detection And Therapy Details ATR IDCO Episode Statistic Type Category VF IDCO Episode Statistic Vendor Type Category VF IDCO Episode Statistic Recent Count 0 IDCO Episode Statistic Recent Date Time Start 20140418 IDCO Episode Statistic Recent Date Time End 20150205 IDCO Episode Statistic Type Category VT IDCO Episode Statistic Vendor Type Category VT IDCO Episode Statistic Recent Count 0 IDCO Episode Statistic Recent Date Time Start 20140418 IDCO Episode Statistic Recent Date Time End 20150205 IDCO Episode Statistic Type Category VT IDCO Episode Statistic Vendor Type Category VT-1 IDCO Episode Statistic Recent Count 0 IDCO Episode Statistic Recent Date Time Start 20140418 IDCO Episode Statistic Recent Date Time End 20150205 IDCO Episode Statistic Type Category Monitor IDCO Episode Statistic Vendor Type Category IDCO Episode Statistic Recent Count 0 IDCO Episode Statistic Recent Date Time Start 20140418 IDCO Episode Statistic Recent Date Time End 20150205 IDCO Episode Statistic Type Category Other IDCO Episode Statistic Vendor Type Category IDCO Episode Statistic Recent Count 0 IDCO Episode Statistic Recent Date Time Start 20140418 IDCO Episode Statistic Recent Date Time End 20150205 IDCO Episode Statistic Type Category VT IDCO Episode Statistic Vendor Type Category NSVT IDCO Episode Statistic Recent Count 2 IDCO Episode Statistic Recent Date Time Start 20140418 IDCO Episode Statistic Recent Date Time End 20150205 IDCO Episode Statistic Type Category AT/AF IDCO Episode Statistic Vendor Type Category ATR IDCO Episode Statistic Recent Count 27 IDCO Episode Statistic Recent Date Time Start 20140418 IDCO Episode Statistic Recent Date Time End 20150205 IDCO Albaro Setting AT Mode Switch Mode [...] E162 IDCO Implantable Pulse Generator Serial Number [id number] IDCO Implantable Pulse Generator Deal Architect [place] [employer] IDCO Implantable Pulse Generator Implant Date 20140110 IDCO Implantable Lead Model 4136 IDCO Implantable Lead Serial Number [id number] IDCO Implantable Lead Deal Architect Guidant IDCO Implantable Lead Implant Date 20130421 IDCO Implantable Lead Polarity Type Bipolar Lead IDCO Implantable Lead Location Right Atrium IDCO Implantable Lead Model 0292 IDCO Implantable Lead Serial Number [id number] IDCO Implantable Lead Deal Architect [place] [employer] IDCO Implantable Lead Implant Date IDCO Implantable Lead Location Right Ventricle IDCO Lead Channel Measurements Date and Time Start 20140718 IDCO Lead Channel Measurements Date and Time End 20150204 IDCO Lead Channel Sensing Intrinsic Amplitude Mean 4.1 mV IDCO Lead Channel Sensing Polarity Bipolar IDCO Lead Channel Pacing Threshold Amplitude 0.6 V IDCO Lead Channel Pacing Threshold Pulse Width 0.5 ms IDCO Lead Channel Pacing Threshold Measurement Method Research Executive Manual IDCO Lead Channel Pacing Threshold Polarity Bipolar IDCO Lead Channel Impedance Value 707 ohms IDCO Lead Channel Impedance Polarity Bipolar IDCO Lead Channel Measurements Date and Time Start 20140718 IDCO Lead Channel Measurements Date and Time End 20150204 IDCO Lead Channel Sensing Intrinsic Amplitude Mean 10.6 mV IDCO Lead Channel Sensing Polarity Bipolar IDCO Lead Channel Pacing Threshold Amplitude 0.6 V IDCO Lead Channel Pacing Threshold Pulse Width 0.5 ms IDCO Lead Channel Pacing Threshold Measurement Method Research Executive Manual IDCO Lead Channel Pacing Threshold Polarity Bipolar IDCO Lead Channel Impedance Value 593 ohms IDCO Lead Channel Impedance Polarity Bipolar IDCO Lead High Voltage Channel Date Time 20150204 IDCO Lead High Voltage Channel Impedance 93 ohms IDCO Lead High Voltage Channel Measurement Type Low Voltage Pulse IDCO Statistic Date Time Start 20140418 IDCO Statistic Date Time End 20150205 IDCO Albaro Statistic Date Time Start 20140418 IDCO Albaro Statistic Date Time End 20150205 IDCO Albaro Statistic RA Percent Paced 21 % IDCO Albaro Statistic RV Percent Paced 0 % IDCO Anatomical Region Laterality Modality Other 02/05/2015 3:28 AM EDT Physician Cardiology IMPLANTABLE CARD IAC DEVICE documented in this encounter Visit Diagnoses Not on filedocumented in this encounter Care Teams Double Bass Player Relationship Specialty Start Date End Date Ángel Bingham MD [facility] [address] [place] [address] PCP - General 01/31/14 09/01/16 documented as of this encounter
--- OUTSIDE RECORDS SUMMARY | 2023-11-03 01:27 | XMS_ITS | Encounter Summary ---
[place] [address] Care Team Providers Care Help Desk Engineer Name Role Phone Ángel Bingham MD Primary Care Provider [phone] Encounter Details Date Type Department Care Team (Late st Contact Info) Description 09/15/2014 Orders Only Cardiology at [address] [address] Social History Tobacco Use Types Packs/Day Years [...] AM EDT Hospital Encounter Non[place] [address] Arrived documented as of this encounter Procedures Procedure Name Priority Date/Time Associated Diagnosis Comments CARDIAC DEVICE CHECK - REMOTE PATIENT INITIATED Routine 09/15/2014 5:22 AM EDT documented in this encounter Results * Cardiac device check - Remote Patient Initiated (09/15/2014 5:22 AM EDT) Date Time Interrogation Session [id number] [facility]CO Type Interrogation Session Remote Patient Initiated [facility] IDCO Battery Date Time of Measurements [id number] IDCO Battery Status Beginning of Service IDCO Battery Remaining Longevity 126 mo IDCO Battery Remaining Percentage 100 % IDCO Capacitor Last Charge Date Time IDCO Capacitor Charge Time 9.9 s IDCO Capacitor Charge Type Reformation IDCO Episode Identifier APM-9 IDCO Episode Date Time IDCO Episode Type Category Periodic EGM IDCO Episode Vendor Type Category APMRT IDCO Episode Detection And Therapy Details Presenting EGM IDCO Episode Statistic Type Category VF IDCO Episode Statistic Vendor Type Category VF IDCO Episode Statistic Recent Count 0 IDCO Episode Statistic Recent Date Time Start 20140418 IDCO Episode Statistic Recent Date Time End 20140915 IDCO Episode Statistic Type Category VT IDCO Episode Statistic Vendor Type Category VT IDCO Episode Statistic Recent Count 0 IDCO Episode Statistic Recent Date Time Start 20140418 IDCO Episode Statistic Recent Date Time End 20140915 IDCO Episode Statistic Type Category VT IDCO Episode Statistic Vendor Type Category VT-1 IDCO Episode Statistic Recent Count 0 IDCO Episode Statistic Recent Date Time Start 20140418 IDCO Episode Statistic Recent Date Time End 20140915 IDCO Episode Statistic Type Category Monitor IDCO Episode Statistic Vendor Type Category IDCO Episode Statistic Recent Count 0 IDCO Episode Statistic Recent Date Time Start 20140418 IDCO Episode Statistic Recent Date Time End 20140915 IDCO Episode Statistic Type Category Other IDCO Episode Statistic Vendor Type Category IDCO Episode Statistic Recent Count 0 IDCO Episode Statistic Recent Date Time Start 20140418 IDCO Episode Statistic Recent Date Time End 20140915 IDCO Episode Statistic Type Category VT IDCO Episode Statistic Vendor Type Category NSVT IDCO Episode Statistic Recent Count 2 IDCO Episode Statistic Recent Date Time Start 20140418 IDCO Episode Statistic Recent Date Time End 20140915 IDCO Episode Statistic Type Category AT/AF IDCO Episode Statistic Vendor Type Category ATR IDCO Episode Statistic Recent Count 16 IDCO Episode Statistic Recent Date Time Start 20140418 IDCO Episode Statistic Recent Date Time End 20140915 IDCO Albaro Setting AT Mode Switch Mode VDIR IDCO Albaro Setting AT Mode Switch Rate 170 {beats}/ min IDCO Albaro Setting Mode (NBG Code) DDDR IDCO Albaro Setting Lower Rate Limit 55 {beats}/ min IDCO Albaro Setting Maximum Tracking Rate 130 {beats}/ min IDCO Albaro Setting Maximum Sensor Rate 130 {beats}/ min IDCO Albaro Setting CORINE Delay High 150 ms IDCO Albrao Setting CORINE Delay Low 65 ms IDCO [...] E162 IDCO Implantable Pulse Generator Serial Number [id number] IDCO Implantable Pulse Generator School [employer] Technician [employer] IDCO Implantable Pulse Generator Implant Date 20140110 IDCO Implantable Lead Model 4136 IDCO Implantable Lead Serial Number [id number] IDCO Implantable Lead [employer] Bus Technician Guidant IDCO Implantable Lead Implant Date 20130421 IDCO Implantable Lead Polarity Type Bipolar Lead IDCO Implantable Lead Location Right Atrium IDCO Implantable Lead Model 0292 IDCO Implantable Lead Serial Number [id number] IDCO Implantable Lead [employer] Technician [employer] IDCO Implantable Lead Implant Date IDCO Implantable Lead Location Right Ventricle IDCO Lead Channel Measurements Date and Time Start 20140718 IDCO Lead Channel Measurements Date and Time End 20140914 IDCO Lead Channel Sensing Intrinsic Amplitude Mean 4.6 mV IDCO Lead Channel Sensing Polarity Bipolar IDCO Lead Channel Pacing Threshold Amplitude 0.6 V IDCO Lead Channel Pacing Threshold Pulse Width 0.5 ms IDCO Lead Channel Pacing Threshold Measurement Method Furnace Mechanic Manual IDCO Lead Channel Pacing Threshold Polarity Bipolar IDCO Lead Channel Impedance Value 675 ohms IDCO Lead Channel Impedance Polarity Bipolar IDCO Lead Channel Measurements Date and Time Start 20140718 IDCO Lead Channel Measurements Date and Time End 20140914 IDCO Lead Channel Sensing Intrinsic Amplitude Mean 10.8 mV IDCO Lead Channel Sensing Polarity Bipolar IDCO Lead Channel Pacing Threshold Amplitude 0.6 V IDCO Lead Channel Pacing Threshold Pulse Width 0.5 ms IDCO Lead Channel Pacing Threshold Measurement Method Furnace Mechanic Manual IDCO Lead Channel Pacing Threshold Polarity Bipolar IDCO Lead Channel Impedance Value 567 ohms IDCO Lead Channel Impedance Polarity Bipolar IDCO Lead High Voltage Channel Date Time 20140914 IDCO Lead High Voltage Channel Impedance 90 ohms IDCO Lead High Voltage Channel Measurement Type Low Voltage Pulse IDCO Statistic Date Time Start 20140418 IDCO Statistic Date Time End 20140915 IDCO Albaro Statistic Date Time Start 20140418 IDCO Albaro Statistic Date Time End 20140915 IDCO Albaro Statistic RA Percent Paced 11 % IDCO Albaro Statistic RV Percent Paced 1 % IDCO Anatomical Region Laterality Modality Other 09/15/2014 5:22 AM EDT Physician Cardiology IMPLANTABLE CARD IAC DEVICE documented in this encounter Visit Diagnoses Not on filedocumented in this encounter Care Teams Help Desk Engineer Relationship Specialty Start Date End Date Ángel Bingham MD [facility] [address] [facility] [place] [address] PCP - General 01/31/14 09/01/16 documented as of this encounter
--- OUTSIDE RECORDS SUMMARY | 2023-11-03 01:27 | XMS_ITS | Encounter Summary ---
Author Organization [facility] [place] [address] Care Team Providers Care Mechanical Fitter Name Role Phone Dewayne Carrington MD Primary Care Provider [phone] Encounter Details Date Type Department Care Team ([facility] st Contact Info) Description 09/02/2016 [place] [phone] Krystle Carrillo MD [facility] [place] [address] Social History Tobacco Use Types Packs/Day Years [...] encounter Miscellaneous Notes * Telephone Encounter - Krystle Carrillo - 09/02/2016 10:07 PM EDT 09/02/2016 Marquez Hendrix Initial Contact Date: 09/02/2016 Initial contact time: 10:07pm Referring Provider: Dr. Sepulveda Patient Location: [facility] Past Medical History: Patient Active Problem List [...] displacement T82.120A ??? Typical atrial flutter I48.3 Presenting Symptoms per OSH: 66 with hx of sustained VT s/p ICD who presents to [facility] with headache and high BP 150s-160s/90s. Patient was concerned that his ICD would be triggered due to the hypertension, therefore, he presentedto [facility]. Patient complained of intermittent palpitations over the last few months, but no syncope, l ightheadedness, dizziness. Patient also complained of intermittent chest pain with deep breathing, but has not had this during the last week. Dr. Sepulveda is unable to tell me if the pain is exertional; she is further unable to tell me anything more at this time about the quality of the pain. Patientdid have an outpatient stress test which noted small area of ischemia in distribution of RCA, EF 39%. Dr. Sepulveda is asking whether she should have [employer] interrogate the pacer tonight. Pertinent Diagnostic Findings: Labs pending, though I was told that his trop just resulted and was negative EKG with evidence of an inferior infarct, otherwise, no acute ischemic changes, normal sinus Past cardiac studies: Reviewed remote download from 03/2016: 93 episodes of NSVT and 45 episodes of ATR Echo 12/2013: SUMMARY: ?? 1. The left ventricle is mildly dilated. Mild concentric left ventricular hypertrophy is observed. There is normal global left ventricular systolic function. The quantitative left ventricular ejection fraction by biplane Paz's method is 56%. There are no left ventricular segmental wall motion abnormalities. 2. Right ventricular chamber size, wall thickness, and systolic function are within normal limits. 3. There is no hemodynamically significant valve disease. 4. See remainder of report for additional findings. Cath 2014: Conclusions: * Two vessel coronary artery disease (LAD and RCA) - distal RCA with TO and bridging collaterals * Elevated left ventricular end diastolic pressure * LAD restenosis not hemodynamically significant by FFR. OSH Interventions: - none at this time Plan: - I've mentioned to Dr. Sepulveda that if patient is anxious due to the fact that he thinks his ICD will discharge, and if an interrogation would be helpful in assuaging the patient's fears, then she should go ahead an get the interrogation tonight; however, given his presenting symptoms, I see no urgent indication for ICD interrogation based on the information that has been presented to me - Regarding his positive stress test and chest pain (unclear quality or character), patient should follow up with his senior compensation analyst, Dr. Self within a week. I will forward this documentation to Dr. Self so that he may arrange outpatient follow up. I've also asked Dr. Sepulveda to have the patient call the cardiology clinic to ensure that he gets an appt. - I also discussed that patient should be optimally treated for CAD after ruling out for ACS: continue baby aspirin, can increase atorvastatin to 40mg, continue or increase metoprolol for target HR 60-70 - can increase dose of Lisinopril if better BP control needed - above recommendations were based on my discussion with Dr. Sepulveda; I have not personally interviewed or examined this patient; I have personally reviewed EKGs. Krystle Carrillo MD Tape Deck Installer PGY-4 Pager: [phone] documented in this encounter Plan of Treatment Upcoming Encounters Date Type Department Care Team (Late st Contact Info) Description 12/18/2023 10:00 AM EDT Hospital Encounter Non[place] [address] Arrived documented as of this encounter Visit Diagnoses Not on filedocumented in this encounter Care Teams Mechanical Fitter Relationship Specialty Start Date End Date [place] [address] PCP - General 09/02/16 documented as of this encounter
--- OUTSIDE RECORDS SUMMARY | 2023-11-03 01:27 | XMS_ITS | Encounter Summary ---
Author Organization [facility] [place] [address] Care Team Providers Care Police Radio Dispatcher Name Role Phone Ángel Bingham MD Primary Care Provider [phone] Reason for Visit * Reason Comments Medication Refill Encounter Details Date Type Department Care Team (Late st Contact Info) Description 04/12/2016 Refill Cardiology at [address] [phone] Kit Self MD [facility] [place] [address] Medication Refill Social History Tobacco Use Types [...] AM EDT Hospital Encounter Non-[place] [phone] Arrived documented as of this encounter Visit Diagnoses Not on filedocumented in this encounter Care Teams Police Radio Dispatcher Relationship Specialty Start Date End Date Ángel Bingham MD [facility] [address] [place] [address] PCP - General 01/31/14 09/01/16 documented as of this encounter
--- OUTSIDE RECORDS SUMMARY | 2023-11-03 01:27 | XMS_ITS | Encounter Summary ---
[place] [address] Care Team Providers Care Mail Room Name Role Phone Ángel Bingham MD Primary Care Provider [phone] Encounter Details Date Type Department Care Team (Late st Contact Info) Description 10/16/2015 Orders Only Cardiology at [address] [address] Social History Tobacco Use Types Packs/Day Years [...] AM EDT Hospital Encounter [place] [address] Arrived documented as of this encounter Procedures Procedure Name Priority Date/Time Associated Diagnosis Comments CARDIAC DEVICE CHECK - REMOTE SCHEDULED Routine 10/16/2015 12:41 AM EDT documented in this encounter Results * Cardiac device check - Remote Scheduled (10/16/2015 12:41 AM EDT) Date Time Interrogation Session [id number] IDCO Type Interrogation Session Remote Scheduled IDCO Clinic Name [facility] IDCO Battery Date Time of Measurements [id number] IDCO Battery Status Beginning of Service IDCO Battery Remaining Longevity 120 mo IDCO Battery Remaining Percentage 100 % IDCO Capacitor Last Charge Date Time IDCO Capacitor Charge Time 10.2 s IDCO Capacitor Charge Type Reformation IDCO Capacitor Last Charge Date Time [id number] IDCO Capacitor Charge Time 3.8 s IDCO Capacitor Charge Energy 21 J IDCO Capacitor Charge Type Shock IDCO Episode Identifier APM-15 IDCO Episode Date Time IDCO Episode Type Category Periodic EGM IDCO Episode Vendor Type Category APMRT IDCO Episode Detection And Therapy Details Presenting EGM IDCO Episode Identifier [id number] IDCO Episode Date Time IDCO Episode Type Category Other IDCO Episode Vendor Type Category XANDER IDCO Episode Detection Interval Ventricular 938 ms IDCO Episode Duration 54 s IDCO Episode Detection And Therapy Details IDCO Episode Identifier [id number] IDCO Episode Date Time [id number] IDCO Episode Type Category Other IDCO Episode Vendor Type Category XANDER IDCO Episode Detection Interval Ventricular 968 ms IDCO Episode Duration 59 s IDCO Episode Detection And Therapy Details IDCO Episode Identifier -[id number] IDCO Episode Date Time [id number] IDCO Episode Type Category Other IDCO Episode Vendor Type Category XANDER IDCO Episode Detection Interval Ventricular 1,071 ms IDCO Episode Duration 62 s IDCO Episode Detection And Therapy Details IDCO Episode Identifier -[id number] IDCO Episode Date Time [id number] IDCO Episode Type Category Other IDCO Episode Vendor Type Category XANDER IDCO Episode Detection Interval Ventricular 1,053 ms IDCO Episode Duration 63 s IDCO Episode Detection And Therapy Details IDCO Episode Identifier IDCO Episode Date Time [id number] IDCO Episode Type Category Other IDCO Episode Vendor Type Category XANDER IDCO Episode Detection Interval Ventricular 1,071 ms IDCO Episode Duration 62 s IDCO Episode Detection And Therapy Details IDCO Episode Identifier -[id number] IDCO Episode Date Time [id number] IDCO Episode Type Category Other IDCO Episode Vendor Type Category XANDER IDCO Episode Detection Interval Ventricular 1,053 ms IDCO Episode Duration 63 s IDCO Episode Detection And Therapy Details IDCO Episode Identifier [id number] IDCO Episode Date Time [id number] IDCO Episode Type Category Other IDCO Episode Vendor Type Category XANDER IDCO Episode Detection Interval Ventricular 1,053 ms IDCO Episode Duration 63 s IDCO Episode Detection And Therapy Details IDCO Episode Identifier [id number] IDCO Episode Date Time [id number] IDCO Episode Type Category Other IDCO Episode Vendor Type Category XANDER IDCO Episode Detection Interval Ventricular 1,154 ms IDCO Episode Duration 63 s IDCO Episode Detection And Therapy Details IDCO Episode Identifier IDCO Episode Date Time [id number] IDCO Episode Type Category Other IDCO Episode Vendor Type Category XANDER IDCO Episode Detection Interval Ventricular 1,053 ms IDCO Episode Duration 63 s IDCO Episode Detection And Therapy Details IDCO Episode Identifier IDCO Episode Date Time [id number] IDCO Episode Type Category Other IDCO Episode Vendor Type Category XANDER IDCO Episode Detection Interval Ventricular 1,071 ms IDCO Episode Duration 63 s IDCO Episode Detection And Therapy Details IDCO Episode Identifier ATR-46 IDCO Episode Date Time [id number] IDCO Episode Type Category AT/AF IDCO Episode Vendor Type Category ATR IDCO Episode Detection Interval Atrial 311 ms IDCO Episode Duration 25 s IDCO Episode Detection And Therapy Details ATR IDCO Episode Identifier ATR-45 IDCO Episode Date Time [id number] IDCO Episode Type Category AT/AF IDCO Episode Vendor Type Category ATR IDCO Episode Detection Interval Atrial 612 ms IDCO Episode Duration 6 s IDCO Episode Detection And Therapy Details ATR IDCO Episode Identifier ATR-44 IDCO Episode Date Time [id number] IDCO Episode Type Category AT/AF IDCO Episode Vendor Type Category ATR IDCO Episode Detection Interval Atrial 279 ms IDCO Episode Duration 75 s IDCO Episode Detection And Therapy Details ATR IDCO Episode Identifier ATR-43 IDCO Episode Date Time [id number] IDCO Episode Type Category AT/AF IDCO Episode Vendor Type Category ATR IDCO Episode Detection Interval Atrial 347 ms IDCO Episode Duration 34 s IDCO Episode Detection And Therapy Details ATR IDCO Episode Identifier V-44 IDCO Episode Date Time IDCO Episode Type Category VT IDCO Episode Vendor Type Category NSVT IDCO Episode Type Induced Flag NO IDCO Episode Detection Interval Ventricular 333 ms IDCO Episode Duration 6 s IDCO Episode Detection And Therapy Details NonSustV IDCO Episode Identifier V-43 IDCO Episode Date Time IDCO Episode Type Category VT IDCO Episode Vendor Type Category NSVT IDCO Episode Type Induced Flag NO IDCO Episode Detection Interval Ventricular 373 ms IDCO Episode Duration 8 s IDCO Episode Detection And Therapy Details NonSustV IDCO Episode Identifier ATR-42 IDCO Episode Date Time [id number] IDCO Episode Type Category AT/AF IDCO Episode Vendor Type Category ATR IDCO Episode Detection Interval Atrial 275 ms IDCO Episode Duration 8,511 s IDCO Episode Detection And Therapy Details ATR IDCO Episode Identifier V-42 IDCO Episode Date Time IDCO Episode Type Category VT IDCO Episode Vendor Type Category NSVT IDCO Episode Type Induced Flag NO IDCO Episode Detection Interval Ventricular 319 ms IDCO Episode Duration 7 s IDCO Episode Detection And Therapy Details NonSustV IDCO Episode Identifier V-41 IDCO Episode Date Time IDCO Episode Type Category VT IDCO Episode Vendor Type Category NSVT IDCO Episode Type Induced Flag NO IDCO Episode Detection Interval Ventricular 323 ms IDCO Episode Duration 7 s IDCO Episode Detection And Therapy Details NonSustV IDCO Episode Identifier V-40 IDCO Episode Date Time IDCO Episode Type Category VT IDCO Episode Vendor Type Category NSVT IDCO Episode Type Induced Flag NO IDCO Episode Detection Interval Ventricular 328 ms IDCO Episode Duration 10 s IDCO Episode Detection And Therapy Details NonSustV IDCO Episode Identifier V-39 IDCO Episode Date Time IDCO Episode Type Category VT IDCO Episode Vendor Type Category NSVT IDCO Episode Type Induced Flag NO IDCO Episode Detection Interval Ventricular 326 ms IDCO Episode Duration 7 s IDCO Episode Detection And Therapy Details NonSustV IDCO Episode Identifier V- IDCO Episode Date Time IDCO Episode Type Category VT IDCO Episode Vendor Type Category NSVT IDCO Episode Type Induced Flag NO IDCO Episode Detection Interval Ventricular 323 ms IDCO Episode Duration 11 s IDCO Episode Detection And Therapy Details NonSustV IDCO Episode Identifier V-37 IDCO Episode Date Time [id number] IDCO Episode Type Category VT IDCO Episode Vendor Type Category NSVT IDCO Episode Type Induced Flag NO IDCO Episode Detection Interval Ventricular 330 ms IDCO Episode Duration 6 s IDCO Episode Detection And Therapy Details NonSustV IDCO Episode Identifier V-36 IDCO Episode Date Time [id number] IDCO Episode Type Category VT IDCO Episode Vendor Type Category NSVT IDCO Episode Type Induced Flag NO IDCO Episode Detection Interval Ventricular 330 ms IDCO Episode Duration 6 s IDCO Episode Detection And Therapy Details NonSustV IDCO Episode Identifier ATR-41 IDCO Episode Date Time [id number] IDCO Episode Type Category AT/AF IDCO Episode Vendor Type Category ATR IDCO Episode Detection Interval Atrial 262 ms IDCO Episode Duration 40 s IDCO Episode Detection And Therapy Details ATR IDCO Episode Identifier ATR-40 IDCO Episode Date Time [id number] IDCO Episode Type Category AT/AF IDCO Episode Vendor Type Category ATR IDCO Episode Detection Interval Atrial 253 ms IDCO Episode Duration 37 s IDCO Episode Detection And Therapy Details ATR IDCO Episode Identifier ATR-39 IDCO Episode Date Time [id number] IDCO Episode Type Category AT/AF IDCO Episode Vendor Type Category ATR IDCO Episode Detection Interval Atrial 255 ms IDCO Episode Duration 17 s IDCO Episode Detection And Therapy Details ATR IDCO Episode Identifier V-35 IDCO Episode Date Time [id number] IDCO Episode Type Category VT IDCO Episode Vendor Type Category NSVT IDCO Episode Type Induced Flag NO IDCO Episode Detection Interval Ventricular 321 ms IDCO Episode Duration 6 s IDCO Episode Detection And Therapy Details NonSustV IDCO Episode Identifier ATR-38 IDCO Episode Date Time [id number] IDCO Episode Type Category AT/AF IDCO Episode Vendor Type Category ATR IDCO Episode Detection Interval Atrial 246 ms IDCO Episode Duration 471 s IDCO Episode Detection And Therapy Details ATR IDCO Episode Statistic Type Category VF IDCO Episode Statistic Vendor Type Category VF IDCO Episode Statistic Recent Count 0 IDCO Episode Statistic Recent Date Time Start 20150711 IDCO Episode Statistic Recent Date Time End 20151016 IDCO Episode Statistic Type Category VT IDCO Episode Statistic Vendor Type Category VT IDCO Episode Statistic Recent Count 0 IDCO Episode Statistic Recent Date Time Start 20150711 IDCO Episode Statistic Recent Date Time End 20151016 IDCO Episode Statistic Type Category VT IDCO Episode Statistic Vendor Type Category VT-1 IDCO Episode Statistic Recent Count 0 IDCO Episode Statistic Recent Date Time Start 20150711 IDCO Episode Statistic Recent Date Time End 20151016 IDCO Episode Statistic Type Category Monitor IDCO Episode Statistic Vendor Type Category IDCO Episode Statistic Recent Count 0 IDCO Episode Statistic Recent Date Time Start 20150711 IDCO Episode Statistic Recent Date Time End 20151016 IDCO Episode Statistic Type Category Other IDCO Episode Statistic Vendor Type Category IDCO Episode Statistic Recent Count 0 IDCO Episode Statistic Recent Date Time Start 20150711 IDCO Episode Statistic Recent Date Time End 20151016 IDCO Episode Statistic Type Category VT IDCO Episode Statistic Vendor Type Category NSVT IDCO Episode Statistic Recent Count 20 IDCO Episode Statistic Recent Date Time Start 20150711 IDCO Episode Statistic Recent Date Time End 20151016 IDCO Episode Statistic Type Category AT/AF IDCO Episode Statistic Vendor Type Category ATR IDCO Episode Statistic Recent Count 9 IDCO Episode Statistic Recent Date Time Start 20150711 IDCO Episode Statistic Recent Date Time End 20151016 IDCO Albaro Setting AT Mode Switch Mode [...] E162 IDCO Implantable Pulse Generator Serial Number [id number] IDCO Implantable Pulse Generator Auto Winder [employer] IDCO Implantable Pulse Generator Implant Date 20140110 IDCO Implantable Lead Model 4136 IDCO Implantable Lead Serial Number [id number] IDCO Implantable Lead Auto Winder Guidant IDCO Implantable Lead Implant Date 20130421 IDCO Implantable Lead Polarity Type Bipolar Lead IDCO Implantable Lead Location Right Atrium IDCO Implantable Lead Model 0292 IDCO Implantable Lead Serial Number [id number] IDCO Implantable Lead Auto Winder [employer] IDCO Implantable Lead Implant Date IDCO Implantable Lead Location Right Ventricle IDCO Lead Channel Measurements Date and Time Start 20150711 IDCO Lead Channel Measurements Date and Time End 20151014 IDCO Lead Channel Sensing Intrinsic Amplitude Mean 6.6 mV IDCO Lead Channel Sensing Polarity Bipolar IDCO Lead Channel Pacing Threshold Amplitude 0.5 V IDCO Lead Channel Pacing Threshold Pulse Width 0.5 ms IDCO Lead Channel Pacing Threshold Measurement Method General Repair Mechanic Manual IDCO Lead Channel Pacing Threshold Polarity Bipolar IDCO Lead Channel Impedance Value 690 ohms IDCO Lead Channel Impedance Polarity Bipolar IDCO Lead Channel Measurements Date and Time Start 20150711 IDCO Lead Channel Measurements Date and Time End 20151014 IDCO Lead Channel Sensing Intrinsic Amplitude Mean 10.7 mV IDCO Lead Channel Sensing Polarity Bipolar IDCO Lead Channel Pacing Threshold Amplitude 0.6 V IDCO Lead Channel Pacing Threshold Pulse Width 0.5 ms IDCO Lead Channel Pacing Threshold Measurement Method General Repair Mechanic Manual IDCO Lead Channel Pacing Threshold Polarity Bipolar IDCO Lead Channel Impedance Value 571 ohms IDCO Lead Channel Impedance Polarity Bipolar IDCO Lead High Voltage Channel Date Time 20151014 IDCO Lead High Voltage Channel Impedance 92 ohms IDCO Lead High Voltage Channel Measurement Type Low Voltage Pulse IDCO Statistic Date Time Start 20150711 IDCO Statistic Date Time End 20151016 IDCO Albaro Statistic Date Time Start 20150711 IDCO Albaro Statistic Date Time End 20151016 IDCO Albaro Statistic RA Percent Paced 36 % IDCO Albaro Statistic RV Percent Paced 0 % IDCO Therapy Statistic Recent Date Time Start 20150711 IDCO Therapy Statistic Recent Date Time End 20151016 IDCO Therapy Statistic Recent Shocks Delivered 0 IDCO Therapy Statistic Total Date Time Start 20140110 IDCO Therapy Statistic Total Date Time End 20151016 IDCO Therapy Statistic Total Shocks Delivered 2 IDCO Therapy Statistic Recent Shocks Aborted 0 IDCO Therapy Statistic Total Shocks Aborted 0 IDCO Therapy Statistic Recent ATP Delivered 0 IDCO Therapy Statistic Total ATP Delivered 1 IDCO Anatomical Region Laterality Modality Other 10/16/2015 12:4 1 AM EDT Physician Cardiology IMPLANTABLE CARD IAC DEVICE documented in this encounter Visit Diagnoses Not on filedocumented in this encounter Care Teams Mail Room Relationship Specialty Start Date End Date Ángel Bingham MD [facility] [address] [place] [address] PCP - General 01/31/14 09/01/16 documented as of this encounter
--- OUTSIDE RECORDS SUMMARY | 2023-11-03 01:27 | XMS_ITS | Encounter Summary ---
[place] [address] Care Team Providers Care Sewing Machine Operator Name Role Phone Ángel Bingham MD Primary Care Provider [phone] Encounter Details Date Type Department Care Team (Late st Contact Info) Description 01/16/2015 Orders Only Cardiology at [address] [phone] Social History Tobacco Use Types Packs/Day Years [...] AM EDT Hospital Encounter Non[place] [address] Arrived documented as of this encounter Procedures Procedure Name Priority Date/Time Associated Diagnosis Comments CARDIAC DEVICE CHECK - REMOTE SCHEDULED Routine 01/16/2015 12:42 AM EDT documented in this encounter Results * Cardiac device check - Remote Scheduled (01/16/2015 12:42 AM EDT) Date Time Interrogation Session [id number] IDCO Type Interrogation Session Remote Scheduled IDCO Clinic Name [facility] IDCO Battery Date Time of Measurements [id number] IDCO Battery Status Beginning of Service IDCO Battery Remaining Longevity 126 mo IDCO Battery Remaining Percentage 100 % IDCO Capacitor Last Charge Date Time IDCO Capacitor Charge Time 10.0 s IDCO Capacitor Charge Type Reformation IDCO Episode Identifier APM-11 IDCO Episode Date Time IDCO Episode Type Category Periodic EGM IDCO Episode Vendor Type Category APMRT IDCO Episode Detection And Therapy Details Presenting EGM IDCO Episode Identifier [id number] IDCO Episode Date Time IDCO Episode Type [...] IDCO Episode Statistic Recent Date Time End 20150116 IDCO Episode Statistic Type Category VT IDCO Episode Statistic Vendor Type Category VT IDCO Episode Statistic Recent Count 0 IDCO Episode Statistic Recent Date Time Start 20140418 IDCO Episode Statistic Recent Date Time End 20150116 IDCO Episode Statistic Type Category VT IDCO Episode Statistic Vendor Type Category VT-1 IDCO Episode Statistic Recent Count 0 IDCO Episode Statistic Recent Date Time Start 20140418 IDCO Episode Statistic Recent Date Time End 20150116 IDCO Episode Statistic Type Category Monitor IDCO Episode Statistic Vendor Type Category IDCO Episode Statistic Recent Count 0 IDCO Episode Statistic Recent Date Time Start 20140418 IDCO Episode Statistic Recent Date Time End 20150116 IDCO Episode Statistic Type Category Other IDCO Episode Statistic Vendor Type Category IDCO Episode Statistic Recent Count 0 IDCO Episode Statistic Recent Date Time Start 20140418 IDCO Episode Statistic Recent Date Time End 20150116 IDCO Episode Statistic Type Category VT IDCO Episode Statistic Vendor Type Category NSVT IDCO Episode Statistic Recent Count 2 IDCO Episode Statistic Recent Date Time Start 20140418 IDCO Episode Statistic Recent Date Time End 20150116 IDCO Episode Statistic Type Category AT/AF IDCO Episode Statistic Vendor Type Category ATR IDCO Episode Statistic Recent Count 26 IDCO Episode Statistic Recent Date Time Start 20140418 IDCO Episode Statistic Recent Date Time End 20150116 IDCO Albaro Setting AT Mode Switch Mode [...] E162 IDCO Implantable Pulse Generator Serial Number [id number] IDCO Implantable Pulse Generator Cane Flume Feeding Machine Operator [employer] IDCO Implantable Pulse Generator Implant Date 20140110 IDCO Implantable Lead Model 4136 IDCO Implantable Lead Serial Number [id number] IDCO Implantable Lead Cane Flume Feeding Machine Operator Guidant IDCO Implantable Lead Implant Date 20130421 IDCO Implantable Lead Polarity Type Bipolar Lead IDCO Implantable Lead Location Right Atrium IDCO Implantable Lead Model 0292 IDCO Implantable Lead Serial Number [id number] IDCO Implantable Lead Cane Flume Feeding Machine Operator [employer] IDCO Implantable Lead Implant Date IDCO Implantable Lead Location Right Ventricle IDCO Lead Channel Measurements Date and Time Start 20140718 IDCO Lead Channel Measurements Date and Time End 20150114 IDCO Lead Channel Sensing Intrinsic Amplitude Mean 3.2 mV IDCO Lead Channel Sensing Polarity Bipolar IDCO Lead Channel Pacing Threshold Amplitude 0.6 V IDCO Lead Channel Pacing Threshold Pulse Width 0.5 ms IDCO Lead Channel Pacing Threshold Measurement Method Bioinformatics Technician Manual IDCO Lead Channel Pacing Threshold Polarity Bipolar IDCO Lead Channel Impedance Value 740 ohms IDCO Lead Channel Impedance Polarity Bipolar IDCO Lead Channel Measurements Date and Time Start 20140718 IDCO Lead Channel Measurements Date and Time End 20150114 IDCO Lead Channel Sensing Intrinsic Amplitude Mean 11.5 mV IDCO Lead Channel Sensing Polarity Bipolar IDCO Lead Channel Pacing Threshold Amplitude 0.6 V IDCO Lead Channel Pacing Threshold Pulse Width 0.5 ms IDCO Lead Channel Pacing Threshold Measurement Method Bioinformatics Technician Manual IDCO Lead Channel Pacing Threshold Polarity Bipolar IDCO Lead Channel Impedance Value 615 ohms IDCO Lead Channel Impedance Polarity Bipolar IDCO Lead High Voltage Channel Date Time 20150114 IDCO Lead High Voltage Channel Impedance 88 ohms IDCO Lead High Voltage Channel Measurement Type Low Voltage Pulse IDCO Statistic Date Time Start 20140418 IDCO Statistic Date Time End 20150116 IDCO Albaro Statistic Date Time Start 20140418 IDCO Albaro Statistic Date Time End 20150116 IDCO Albaro Statistic RA Percent Paced 18 % IDCO Albaro Statistic RV Percent Paced 0 % IDCO Anatomical Region Laterality Modality Other 01/16/2015 12:4 2 AM EDT Physician Cardiology IMPLANTABLE CARD IAC DEVICE documented in this encounter Visit Diagnoses Not on filedocumented in this encounter Care Teams Sewing Machine Operator Relationship Specialty Start Date End Date Ángel Bingham MD [facility] [address] [place] [address] PCP - General 01/31/14 09/01/16 documented as of this encounter
--- OUTSIDE RECORDS SUMMARY | 2023-11-03 01:27 | XMS_ITS | Encounter Summary ---
[place] [address] Care Team Providers Care Rotary Drier Feeder Name Role Phone Ángel Bingham MD Primary Care Provider [phone] Encounter Details Date Type Department Care Team (Late st Contact Info) Description 06/04/2015 Orders Only Cardiology at [address] [phone] Social History Tobacco Use Types Packs/Day Years [...] AM EDT Hospital Encounter [place] [address] Arrived documented as of this encounter Procedures Procedure Name Priority Date/Time Associated Diagnosis Comments CARDIAC DEVICE CHECK - REMOTE PATIENT INITIATED Routine 06/04/2015 5:00 PM EST documented in this encounter Results * Cardiac device check - Remote Patient Initiated (06/04/2015 5:00 PM EST) Date Time Interrogation Session [id number] IDCO Type Interrogation Session Remote Patient Initiated IDCO Clinic Name [facility] IDCO Battery Date Time of Measurements [id number] IDCO Battery Status Beginning of Service IDCO Battery Remaining Longevity 126 mo IDCO Battery Remaining Percentage 100 % IDCO Capacitor Last Charge Date Time IDCO Capacitor Charge Time 10.1 s IDCO Capacitor Charge Type Reformation IDCO Capacitor Last Charge Date Time [id number] IDCO Capacitor Charge Time 3.8 s IDCO Capacitor Charge Energy 21 J IDCO Capacitor Charge Type Shock IDCO Episode Identifier APM-13 IDCO Episode Date Time [id number] IDCO Episode Type Category Periodic EGM IDCO Episode Vendor Type Category APMRT IDCO Episode Detection And Therapy Details Presenting EGM IDCO Episode Identifier [id number] IDCO Episode Date Time [id number] IDCO Episode Type Category Other IDCO Episode Vendor Type Category XANDER IDCO Episode Detection Interval Ventricular 1,091 ms IDCO Episode Duration 62 s IDCO Episode Detection And Therapy Details IDCO Episode Identifier MDQ- IDCO Episode Date Time [id number] IDCO Episode Type Category Other IDCO Episode Vendor Type Category XANDER IDCO Episode Detection Interval Ventricular 870 ms IDCO Episode Duration 56 s IDCO Episode Detection And Therapy Details IDCO Episode Identifier IDCO Episode Date Time [id number] IDCO Episode Type Category Other IDCO Episode Vendor Type Category XANDER IDCO Episode Detection Interval Ventricular 1,071 ms IDCO Episode Duration 62 s IDCO Episode Detection And Therapy Details IDCO Episode Identifier MD IDCO Episode Date Time [id number] IDCO Episode Type Category Other IDCO Episode Vendor Type Category XANDER IDCO Episode Detection Interval Ventricular 923 ms IDCO Episode Duration 49 s IDCO Episode Detection And Therapy Details IDCO Episode Identifier MD IDCO Episode Date Time [id number] IDCO Episode Type Category Other IDCO Episode Vendor Type Category XANDER IDCO Episode Detection Interval Ventricular 896 ms IDCO Episode Duration 53 s IDCO Episode Detection And Therapy Details IDCO Episode Identifier MDQ- IDCO Episode Date Time [id number] IDCO Episode Type Category Other IDCO Episode Vendor Type Category XANDER IDCO Episode Detection Interval Ventricular 1,304 ms IDCO Episode Duration 63 s IDCO Episode Detection And Therapy Details RYMIQ IDCO Episode Identifier RYMIQ- IDCO Episode Date Time IDCO Episode Type Category Other IDCO Episode Vendor Type Category XANDER IDCO Episode Detection Interval Ventricular 1,017 ms IDCO Episode Duration 59 s IDCO Episode Detection And Therapy Details RYMIQ IDCO Episode Identifier RYMIQ- IDCO Episode Date Time IDCO Episode Type Category Other IDCO Episode Vendor Type Category XANDER IDCO Episode Detection Interval Ventricular 923 ms IDCO Episode Duration 60 s IDCO Episode Detection And Therapy Details Q IDCO Episode Identifier RYMIQ- IDCO Episode Date Time IDCO Episode Type Category Other IDCO Episode Vendor Type Category XANDER IDCO Episode Detection Interval Ventricular 1,000 ms IDCO Episode Duration 62 s IDCO Episode Detection And Therapy Details Q IDCO Episode Identifier IDCO Episode Date Time IDCO Episode Type Category VT IDCO Episode Vendor Type Category NSVT IDCO Episode Type Induced Flag NO IDCO Episode Detection Interval Ventricular 364 ms IDCO Episode Duration 6 s IDCO Episode Detection And Therapy Details NonSustV IDCO Episode Identifier IDCO Episode Date Time IDCO Episode Type Category VT IDCO Episode Vendor Type Category NSVT IDCO Episode Type Induced Flag NO IDCO Episode Detection Interval Ventricular 353 ms IDCO Episode Duration 6 s IDCO Episode Detection And Therapy Details NonSustV IDCO Episode Identifier IDCO Episode Date Time [id number] IDCO Episode Type Category VT IDCO Episode Vendor Type Category NSVT IDCO Episode Type Induced Flag NO IDCO Episode Detection Interval Ventricular 373 ms IDCO Episode Duration 6 s IDCO Episode Detection And Therapy Details NonSustV IDCO Episode Identifier RYMIQ- IDCO Episode Date Time [id number] IDCO Episode Type Category Other IDCO Episode Vendor Type Category XANDER IDCO Episode Detection Interval Ventricular 909 ms IDCO Episode Duration 55 s IDCO Episode Detection And Therapy Details RYMIQ IDCO Episode Identifier IDCO Episode Date Time [id number] IDCO Episode Type Category VT IDCO Episode Vendor Type Category NSVT IDCO Episode Type Induced Flag NO IDCO Episode Detection Interval Ventricular 330 ms IDCO Episode Duration 11 s IDCO Episode Detection And Therapy Details NonSustV IDCO Episode Identifier ATR-32 IDCO Episode Date Time IDCO Episode Type Category AT/AF IDCO Episode Vendor Type Category ATR IDCO Episode Detection Interval Atrial 276 ms IDCO Episode Duration 25 s IDCO Episode Detection And Therapy Details ATR IDCO Episode Identifier ATR-31 IDCO Episode Date Time IDCO Episode Type Category AT/AF IDCO Episode Vendor Type Category ATR IDCO Episode Detection Interval Atrial 284 ms IDCO Episode Duration 23 s IDCO Episode Detection And Therapy Details ATR IDCO Episode Identifier V-11 IDCO Episode Date Time [id number] IDCO Episode Type Category VT IDCO Episode Vendor Type Category NSVT IDCO Episode Type Induced Flag NO IDCO Episode Detection Interval Ventricular 375 ms IDCO Episode Duration 17 s IDCO Episode Detection And Therapy Details NonSustV IDCO Episode Identifier V-10 IDCO Episode Date Time IDCO Episode Type Category VT IDCO Episode Vendor Type Category NSVT IDCO Episode Type Induced Flag NO IDCO Episode Detection Interval Ventricular 385 ms IDCO Episode Duration 7 s IDCO Episode Detection And Therapy Details NonSustV IDCO Episode Identifier V-9 IDCO Episode Date Time IDCO Episode Type Category VT IDCO Episode Vendor Type Category NSVT IDCO Episode Type Induced Flag NO IDCO Episode Detection Interval Ventricular 361 ms IDCO Episode Duration 7 s IDCO Episode Detection And Therapy Details NonSustV IDCO Episode Identifier V-8 IDCO Episode Date Time IDCO Episode Type Category VT IDCO Episode Vendor Type Category NSVT IDCO Episode Type Induced Flag NO IDCO Episode Detection Interval Ventricular 361 ms IDCO Episode Duration 7 s IDCO Episode Detection And Therapy Details NonSustV IDCO Episode Identifier V-7 IDCO Episode Date Time IDCO Episode Type Category VT IDCO Episode Vendor Type Category NSVT IDCO Episode Type Induced Flag NO IDCO Episode Detection Interval Ventricular 377 ms IDCO Episode Duration 6 s IDCO Episode Detection And Therapy Details NonSustV IDCO Episode Identifier V-6 IDCO Episode Date Time IDCO Episode Type Category VT IDCO Episode Vendor Type Category NSVT IDCO Episode Type Induced Flag NO IDCO Episode Detection Interval Ventricular 414 ms IDCO Episode Duration 9 s IDCO Episode Detection And Therapy Details NonSustV IDCO Episode Identifier ATR-30 IDCO Episode Date Time IDCO Episode Type Category AT/AF IDCO Episode Vendor Type Category ATR IDCO Episode Detection Interval Atrial 273 ms IDCO Episode Duration 99 s IDCO Episode Detection And Therapy Details ATR IDCO Episode Identifier ATR-29 IDCO Episode Date Time IDCO Episode Type Category AT/AF IDCO Episode Vendor Type Category ATR IDCO Episode Detection Interval Atrial 276 ms IDCO Episode Duration 12 s IDCO Episode Detection And Therapy Details ATR IDCO Episode Statistic Type Category VF IDCO Episode Statistic Vendor Type Category VF IDCO Episode Statistic Recent Count 0 IDCO Episode Statistic Recent Date Time Start 20140418 IDCO Episode Statistic Recent Date Time End 20150604 IDCO Episode Statistic Type Category VT IDCO Episode Statistic Vendor Type Category VT IDCO Episode Statistic Recent Count 0 IDCO Episode Statistic Recent Date Time Start 20140418 IDCO Episode Statistic Recent Date Time End 20150604 IDCO Episode Statistic Type Category VT IDCO Episode Statistic Vendor Type Category VT-1 IDCO Episode Statistic Recent Count 0 IDCO Episode Statistic Recent Date Time Start 20140418 IDCO Episode Statistic Recent Date Time End 20150604 IDCO Episode Statistic Type Category Monitor IDCO Episode Statistic Vendor Type Category IDCO Episode Statistic Recent Count 0 IDCO Episode Statistic Recent Date Time Start 20140418 IDCO Episode Statistic Recent Date Time End 20150604 IDCO Episode Statistic Type Category Other IDCO Episode Statistic Vendor Type Category IDCO Episode Statistic Recent Count 0 IDCO Episode Statistic Recent Date Time Start 20140418 IDCO Episode Statistic Recent Date Time End 20150604 IDCO Episode Statistic Type Category VT IDCO Episode Statistic Vendor Type Category NSVT IDCO Episode Statistic Recent Count 13 IDCO Episode Statistic Recent Date Time Start 20140418 IDCO Episode Statistic Recent Date Time End 20150604 IDCO Episode Statistic Type Category AT/AF IDCO Episode Statistic Vendor Type Category ATR IDCO Episode Statistic Recent Count 31 IDCO Episode Statistic Recent Date Time Start 20140418 IDCO Episode Statistic Recent Date Time End 20150604 IDCO Albaro Setting AT Mode Switch Mode [...] E162 IDCO Implantable Pulse Generator Serial Number [id number] IDCO Implantable Pulse Generator Gift Shop Clerk [employer] IDCO Implantable Pulse Generator Implant Date 20140110 IDCO Implantable Lead Model 4136 IDCO Implantable Lead Serial Number [id number] IDCO Implantable Lead Gift Shop Clerk Guidant IDCO Implantable Lead Implant Date 20130421 IDCO Implantable Lead Polarity Type Bipolar Lead IDCO Implantable Lead Location Right Atrium IDCO Implantable Lead Model 0292 IDCO Implantable Lead Serial Number [id number] IDCO Implantable Lead Gift Shop Clerk [employer] IDCO Implantable Lead Implant Date IDCO Implantable Lead Location Right Ventricle IDCO Lead Channel Measurements Date and Time Start 20140718 IDCO Lead Channel Measurements Date and Time End 20150603 IDCO Lead Channel Sensing Intrinsic Amplitude Mean 4.5 mV IDCO Lead Channel Sensing Polarity Bipolar IDCO Lead Channel Pacing Threshold Amplitude 0.6 V IDCO Lead Channel Pacing Threshold Pulse Width 0.5 ms IDCO Lead Channel Pacing Threshold Measurement Method Lamp Developer Manual IDCO Lead Channel Pacing Threshold Polarity Bipolar IDCO Lead Channel Impedance Value 712 ohms IDCO Lead Channel Impedance Polarity Bipolar IDCO Lead Channel Measurements Date and Time Start 20140718 IDCO Lead Channel Measurements Date and Time End 20150603 IDCO Lead Channel Sensing Intrinsic Amplitude Mean 9.3 mV IDCO Lead Channel Sensing Polarity Bipolar IDCO Lead Channel Pacing Threshold Amplitude 0.6 V IDCO Lead Channel Pacing Threshold Pulse Width 0.5 ms IDCO Lead Channel Pacing Threshold Measurement Method Lamp Developer Manual IDCO Lead Channel Pacing Threshold Polarity Bipolar IDCO Lead Channel Impedance Value 587 ohms IDCO Lead Channel Impedance Polarity Bipolar IDCO Lead High Voltage Channel Date Time 20150603 IDCO Lead High Voltage Channel Impedance 82 ohms IDCO Lead High Voltage Channel Measurement Type Low Voltage Pulse IDCO Statistic Date Time Start 20140418 IDCO Statistic Date Time End 20150604 IDCO Albaro Statistic Date Time Start 20140418 IDCO Albaro Statistic Date Time End 20150604 IDCO Albaro Statistic RA Percent Paced 34 % IDCO Albaro Statistic RV Percent Paced 0 % IDCO Therapy Statistic Recent Date Time Start 20140418 IDCO Therapy Statistic Recent Date Time End 20150604 IDCO Therapy Statistic Recent Shocks Delivered 0 IDCO Therapy Statistic Total Date Time Start 20140110 IDCO Therapy Statistic Total Date Time End 20150604 IDCO Therapy Statistic Total Shocks Delivered 2 IDCO Therapy Statistic Recent Shocks Aborted 0 IDCO Therapy Statistic Total Shocks Aborted 0 IDCO Therapy Statistic Recent ATP Delivered 0 IDCO Therapy Statistic Total ATP Delivered 1 IDCO Anatomical Region Laterality Modality Other 06/04/2015 5:00 PM EST Physician Cardiology IMPLANTABLE CARD IAC DEVICE documented in this encounter Visit Diagnoses Not on filedocumented in this encounter Care Teams Rotary Drier Feeder Relationship Specialty Start Date End Date Ángel Bingham MD [facility] [address] [place] [address] PCP - General 01/31/14 09/01/16 documented as of this encounter
--- OUTSIDE RECORDS SUMMARY | 2023-11-03 01:27 | XMS_ITS | Encounter Summary ---
Author Organization [place] [address] Care Team Providers Care Branch Manager Name Role Phone Ángel Bingham MD Primary Care Provider [phone] Reason for Visit * Reason Comments Ventricular Arrhythmia Encounter Details Date Type Department Care Team (Late st Contact Info) Description 01/14/2016 1:00 PM EDT Office Visit Cardiology at [address] [phone] Catherine Roberts RN Sustained VT (ventricular tachycardia) Social History [...] Reading Time Taken Comments Blood Pressure 115/62 01/14/2016 12:47 PM EDT Pulse 59 01/14/2016 12:47 PM EDT Temperature - - Respiratory Rate - - Oxygen Saturation 98% 01/14/2016 12:47 PM EDT room air Inhaled Oxygen Concentration - - Weight 91.9 kg (202 lb 9.6 oz) 01/14/2016 12:47 PM EDT Height 185.4 cm (6' 1) 01/14/2016 12:47 PM EDT Body Mass Index 26.73 01/14/2016 12:47 PM EDT documented in this encounter Progress Notes * Catherine Roberts RN - 01/14/2016 1:00 PM EDT Images from the original note were not included. Clinical Electrophysiology Device Service Note Marquez Hendrix is a 65 y.o. male who presents today in the clinic for routine ICD follow-up. He hasbeen feeling well and biking (pedal) on the trails this summer. 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 On 04/17/2014 he underwent an atrial lead revision for lead dislodgement. Previous device interrogations have yielded small burden of asymptomatic atrial flutter, generally <1 hr in duration. Patient remains resistant to begin anticoagulation. Talk Show Host: Kit Self MD PCP: ÁNGEL BINGHAM MD Device Info: New Atrial electrode: [employer] Dextrus Model# 4126-53 cm Serial# [id number], implanted 04/17/2014 ?? Bipolar, steroid-tipped, active-fixation IS-1 lead ?? Access: Axillary vein ?? Location Right atrial appendage Old Ventricular electrode: [employer] [place] Model# 0292 Serial# [id number] ?? Bipolar, steroid-tipped, active-fixation DF-4 lead ?? Access: Axillary vein ?? Location: Right ventricular apex ?? Implanted: 01/10/2014 Pulse generator: [employer] Incepta Model# E162 Serial# [id number] ?? DDDR ICD ?? Location: Subcutaneous Tachy settings: VF 220 bpm; ATP, 31j, 41j x 7 VT 180 bpm; Scan, 31j, 41j x 5 VT-1 155 bpm; Scan, RampScan, 0.9j, 11j, 41j x 3 Albaro settings: DDDR 55/130/130, Rythmiq enabled Atrial lead impedance: 739 ohms Right ventricular lead impedance: 594 ohms RV shock impedance: 91 ohms P wave: 6.0 mV R wave: 12.0 mV Atrial capture threshold: 0.6 V @ 0.5 ms Right ventricular capture threshold: 0.6 V at 0.5 ms Underlying rhythm: SR 60-64 bpm Heart rate histograms: Reasonable distribution Pacing percentages: AP 31%; TUB MENDER <1% Mode switch episodes: 28 events in total, burden <1% since last reset 06/2015. Longest event was between 1 hr and <24 hr. No EGMs nor further data with specific dates of the longer events. AFlutter was reveiwed with the patient and a print out of the arrhythmia log was given to him at his request. Monitored events: 30 Non-sustained events since July 10, EGMs consistent with very brief non-sustained VT as seen before Treated events: None Battery voltage: ANN, est 10 years remaining Charge time: 10.3 sec 01/07/2016 Incision assessment: L chest no issues Impression: Normal device function Plan: Latitude 3 mos, RTC 6 mos. Reprogramming: None Provider: CATHERINE ROBERTS RN Attending: Dr. Sosa * Andres Sosa MD - 01/14/2016 1:00 PM EDT Cardiac Electrophysiology Attending Note Cardiac Rhythm Device Clinic This patient was seen in the Cardiac Rhythm Device Clinic for which I provided supervision on 2015. I have overread and reviewed the implanted cardiac defibrillator (ICD) interrogation data, which also is partially summarized in Catherine Roberts's note. Comments (interval data since July 11, 2015): Cell voltage and charge time acceptable Estimated remaining longevity ~ 10 years Underlying conducted sinus rhythm Atrial Lead: Acceptable atrial lead capture thresholds, sensing, and impedance Atrial pacing 31% Atrial dysrhythmias detected: ATR mode switches, 1 lasting 1-24 hours, 6 episodes lasting 1 minute to 1 hour. EGMs reviewed from 1 episode on November 30 2015, consistent with atrial flutter with ventricular response ~100 bpm Right Ventricular Lead: Acceptable ventricular lead capture threshold, sensing, and impedances Ventricular pacing <1% Ventricular dysrhythmias detected: 30 nonsustained VT events noted, longest 10 seconds Ventricular arrhythmias treated: none Conclusion: Normal device function. Paroxysmal atrial arrhythmias confirmed (consistent with atrial flutter/fibrillation), with <1% burden. Programming: Thresholds assessed. Counters cleared. __ Andres Sosa MD Cardiac Electrophysiology Services [facility] documented in this encounter Plan of Treatment Upcoming Encounters Date Type Department Care Team (Late st Contact Info) Description 12/18/2023 10:00 AM EDT Hospital Encounter Non-[place] [phone] Arrived documented as of this encounter Visit Diagnoses Diagnosis Sustained VT (ventricular tachycardia) Paroxysmal ventricular tachycardia documented in this encounter Care Teams Branch Manager Relationship Specialty Start Date End Date Ángel Bingham MD [facility] [address] [place] [address] PCP - General 01/31/14 09/01/16 documented as of this encounter
--- OUTSIDE RECORDS SUMMARY | 2023-11-03 01:27 | XMS_ITS | Encounter Summary ---
[place] [address] Care Team Providers Care Guide Dog Trainer Name Role Phone Ángel Bingham MD Primary Care Provider [phone] Encounter Details Date Type Department Care Team (Late st Contact Info) Description 10/19/2015 External Results Cardiology at [address] [phone] Ángel Bingham MD [facility] [address] [place] [phone] Social History Tobacco Use Types Packs/Day Years [...] AM EDT Hospital Encounter Non[place] [address] Arrived documented as of this encounter Procedures Procedure Name Priority Date/Time Associated Diagnosis Comments EP DEVICE SCAN Routine 10/16/2015 documented in this encounter Results * Scan Doc: EP Device (10/16/2015) Anatomical Region Laterality Modality Other Ángel Bingham MD MEDIA MGR SCAN EXT O RDR/RSLT documented in this encounter Visit Diagnoses Not on filedocumented in this encounter Care Teams Guide Dog Trainer Relationship Specialty Start Date End Date Ángel Bingham MD [facility] [address] [place] [address] PCP - General 01/31/14 09/01/16 documented as of this encounter
--- OUTSIDE RECORDS SUMMARY | 2023-11-03 01:27 | XMS_ITS | Encounter Summary ---
[place] [address] Care Team Providers Care Acid Tank Cleaner Name Role Phone Ángel Bingham MD Primary Care Provider Encounter Details Date Type Department Care Team (Late st Contact Info) Description 04/15/2016 Orders Only Cardiology at [address] [address] Social History Tobacco Use Types Packs/Day Years [...] Hospital Encounter Non-[place] [address] Arrived documented as of this encounter Procedures Procedure Name Priority Date/Time Associated Diagnosis Comments CARDIAC DEVICE CHECK - REMOTE SCHEDULED Routine 04/15/2016 12:42 AM EST documented in this encounter Results * (ABNORMAL) Cardiac device check - Remote Scheduled (04/15/2016 12:42 AM EST) Date Time Interrogation Session [id number] IDCO Type Interrogation Session Remote Scheduled IDCO Clinic Name [facility] IDCO Battery Date Time of Measurements [id number] IDCO Battery Status Beginning of Service IDCO Battery Remaining Longevity 108 mo IDCO Battery Remaining Percentage 100 % IDCO Capacitor Last Charge Date Time [id number] IDCO Capacitor Charge Time 10.3 s IDCO Capacitor Charge Type Reformation IDCO Capacitor Last Charge Date Time [id number] IDCO Capacitor Charge Time 3.8 s IDCO Capacitor Charge Energy 21 J IDCO Capacitor Charge Type Shock IDCO Episode Identifier [id number] IDCO Episode Date Time [id number] IDCO Episode Type Category Periodic EGM IDCO Episode Vendor Type Category APMRT IDCO Episode Detection And Therapy Details Presenting EGM IDCO Episode Identifier [id number] IDCO Episode Date Time [id number] IDCO Episode Type Category Other IDCO Episode Vendor Type Category XANDER IDCO Episode Detection Interval Ventricular 1,017 ms IDCO Episode Duration 61 s IDCO Episode Detection And Therapy Details IDCO Episode Identifier [id number] IDCO Episode Date Time [id number] IDCO Episode Type Category Other IDCO Episode Vendor Type Category XANDER IDCO Episode Detection Interval Ventricular 1,034 ms IDCO Episode Duration 63 s IDCO Episode Detection And Therapy Details IDCO Episode Identifier [id number] IDCO Episode Date Time [id number] IDCO Episode Type Category Other IDCO Episode Vendor Type Category XANDER IDCO Episode Detection Interval Ventricular 968 ms IDCO Episode Duration 59 s IDCO Episode Detection And Therapy Details IDCO Episode Identifier [id number] IDCO Episode Date Time [id number] IDCO Episode Type Category Other IDCO Episode Vendor Type Category XANDER IDCO Episode Detection Interval Ventricular 984 ms IDCO Episode Duration 61 s IDCO Episode Detection And Therapy Details IDCO Episode Identifier [id number] IDCO Episode Date Time [id number] IDCO Episode Type Category Other IDCO Episode Vendor Type Category XANDER IDCO Episode Detection Interval Ventricular 1,017 ms IDCO Episode Duration 61 s IDCO Episode Detection And Therapy Details IDCO Episode Identifier [id number] IDCO Episode Date Time [id number] IDCO Episode Type Category Other IDCO Episode Vendor Type Category XANDER IDCO Episode Detection Interval Ventricular 1,017 ms IDCO Episode Duration 62 s IDCO Episode Detection And Therapy Details RYMIQ IDCO Episode Identifier [id number] IDCO Episode Date Time [id number] IDCO Episode Type Category Other IDCO Episode Vendor Type Category XANDER IDCO Episode Detection Interval Ventricular 1,000 ms IDCO Episode Duration 59 s IDCO Episode Detection And Therapy Details RYMIQ IDCO Episode Identifier [id number] IDCO Episode Date Time [id number] IDCO Episode Type Category Other IDCO Episode Vendor Type Category XANDER IDCO Episode Detection Interval Ventricular 1,000 ms IDCO Episode Duration 60 s IDCO Episode Detection And Therapy Details RYMIQ IDCO Episode Identifier [id number] IDCO Episode Date Time [id number] IDCO Episode Type Category Other IDCO Episode Vendor Type Category XANDER IDCO Episode Detection Interval Ventricular 1,017 ms IDCO Episode Duration 60 s IDCO Episode Detection And Therapy Details RYMIQ IDCO Episode Identifier [id number] IDCO Episode Date Time [id number] IDCO Episode Type Category Other IDCO Episode Vendor Type Category XANDER IDCO Episode Detection Interval Ventricular 952 ms IDCO Episode Duration 60 s IDCO Episode Detection And Therapy Details Q IDCO Episode Identifier V-148 IDCO Episode Date Time [id number] IDCO Episode Type Category VT IDCO Episode Vendor Type Category NSVT IDCO Episode Type Induced Flag NO IDCO Episode Detection Interval Ventricular 380 ms IDCO Episode Duration 5 s IDCO Episode Detection And Therapy Details NonSustV IDCO Episode Identifier V-147 IDCO Episode Date Time [id number] IDCO Episode Type Category VT IDCO Episode Vendor Type Category NSVT IDCO Episode Type Induced Flag NO IDCO Episode Detection Interval Ventricular 405 ms IDCO Episode Duration 5 s IDCO Episode Detection And Therapy Details NonSustV IDCO Episode Identifier V-146 IDCO Episode Date Time [id number] IDCO Episode Type Category VT IDCO Episode Vendor Type Category NSVT IDCO Episode Type Induced Flag NO IDCO Episode Detection Interval Ventricular 390 ms IDCO Episode Duration 20 s IDCO Episode Detection And Therapy Details NonSustV IDCO Episode Identifier V-145 IDCO Episode Date Time [id number] IDCO Episode Type Category VT IDCO Episode Vendor Type Category NSVT IDCO Episode Type Induced Flag NO IDCO Episode Detection Interval Ventricular 387 ms IDCO Episode Duration 53 s IDCO Episode Detection And Therapy Details NonSustV IDCO Episode Identifier V-144 IDCO Episode Date Time [id number] IDCO Episode Type Category VT IDCO Episode Vendor Type Category NSVT IDCO Episode Type Induced Flag NO IDCO Episode Detection Interval Ventricular 455 ms IDCO Episode Duration 18 s IDCO Episode Detection And Therapy Details NonSustV IDCO Episode Identifier V-143 IDCO Episode Date Time [id number] IDCO Episode Type Category VT IDCO Episode Vendor Type Category NSVT IDCO Episode Type Induced Flag NO IDCO Episode Detection Interval Ventricular 375 ms IDCO Episode Duration 32 s IDCO Episode Detection And Therapy Details NonSustV IDCO Episode Identifier V-142 IDCO Episode Date Time [id number] IDCO Episode Type Category VT IDCO Episode Vendor Type Category NSVT IDCO Episode Type Induced Flag NO IDCO Episode Detection Interval Ventricular 408 ms IDCO Episode Duration 5 s IDCO Episode Detection And Therapy Details NonSustV IDCO Episode Identifier V-141 IDCO Episode Date Time [id number] IDCO Episode Type Category VT IDCO Episode Vendor Type Category NSVT IDCO Episode Type Induced Flag NO IDCO Episode Detection Interval Ventricular 382 ms IDCO Episode Duration 24 s IDCO Episode Detection And Therapy Details NonSustV IDCO Episode Identifier V-140 IDCO Episode Date Time [id number] IDCO Episode Type Category VT IDCO Episode Vendor Type Category NSVT IDCO Episode Type Induced Flag NO IDCO Episode Detection Interval Ventricular 364 ms IDCO Episode Duration 51 s IDCO Episode Detection And Therapy Details NonSustV IDCO Episode Identifier V-139 IDCO Episode Date Time [id number] IDCO Episode Type Category VT IDCO Episode Vendor Type Category NSVT IDCO Episode Type Induced Flag NO IDCO Episode Detection Interval Ventricular 414 ms IDCO Episode Duration 8 s IDCO Episode Detection And Therapy Details NonSustV IDCO Episode Identifier ATR-110 IDCO Episode Date Time [id number] IDCO Episode Type Category AT/AF IDCO Episode Vendor Type Category ATR IDCO Episode Detection Interval Atrial 207 ms IDCO Episode Duration 23,715 s IDCO Episode Detection And Therapy Details ATR IDCO Episode Identifier ATR-109 IDCO Episode Date Time [id number] IDCO Episode Type Category AT/AF IDCO Episode Vendor Type Category ATR IDCO Episode Detection Interval Atrial 199 ms IDCO Episode Duration 347 s IDCO Episode Detection And Therapy Details ATR IDCO Episode Identifier ATR-108 IDCO Episode Date Time IDCO Episode Type Category AT/AF IDCO Episode Vendor Type Category ATR IDCO Episode Detection Interval Atrial 203 ms IDCO Episode Duration IDCO Episode Detection And Therapy Details ATR IDCO Episode Identifier ATR-107 IDCO Episode Date Time [id number] IDCO Episode Type Category AT/AF IDCO Episode Vendor Type Category ATR IDCO Episode Detection Interval Atrial 194 ms IDCO Episode Duration 23 s IDCO Episode Detection And Therapy Details ATR IDCO Episode Identifier ATR-106 IDCO Episode Date Time IDCO Episode Type Category AT/AF IDCO Episode Vendor Type Category ATR IDCO Episode Detection Interval Atrial 199 ms IDCO Episode Duration 31 s IDCO Episode Detection And Therapy Details ATR IDCO Episode Identifier ATR-105 IDCO Episode Date Time IDCO Episode Type Category AT/AF IDCO Episode Vendor Type Category ATR IDCO Episode Detection Interval Atrial 197 ms IDCO Episode Duration 22 s IDCO Episode Detection And Therapy Details ATR IDCO Episode Identifier ATR-104 IDCO Episode Date Time [id number] IDCO Episode Type Category AT/AF IDCO Episode Vendor Type Category ATR IDCO Episode Detection Interval Atrial 199 ms IDCO Episode Duration 1,223 s IDCO Episode Detection And Therapy Details ATR IDCO Episode Identifier ATR-103 IDCO Episode Date Time [id number] IDCO Episode Type Category AT/AF IDCO Episode Vendor Type Category ATR IDCO Episode Detection Interval Atrial 253 ms IDCO Episode Duration 984 s IDCO Episode Detection And Therapy Details ATR IDCO Episode Identifier ATR-102 IDCO Episode Date Time [id number] IDCO Episode Type Category AT/AF IDCO Episode Vendor Type Category ATR IDCO Episode Detection Interval Atrial 195 ms IDCO Episode Duration 320 s IDCO Episode Detection And Therapy Details ATR IDCO Episode Identifier ATR-101 IDCO Episode Date Time [id number] IDCO Episode Type Category AT/AF IDCO Episode Vendor Type Category ATR IDCO Episode Detection Interval Atrial 205 ms IDCO Episode Duration 1 s IDCO Episode Detection And Therapy Details ATR IDCO Episode Identifier V-92 IDCO Episode Date Time [id number] IDCO Episode Type Category VT IDCO Episode Vendor Type Category VT-1 IDCO Episode Type Induced Flag NO IDCO Episode Detection Interval Ventricular 353 ms IDCO Episode Duration 90 s IDCO Episode Detection And Therapy Details VT-1 No Therapy IDCO Episode Statistic Type Category VF IDCO Episode Statistic Vendor Type Category VF IDCO Episode Statistic Recent Count 0 IDCO Episode Statistic Recent Date Time Start 20160114 IDCO Episode Statistic Recent Date Time End 20160415 IDCO Episode Statistic Type Category VT IDCO Episode Statistic Vendor Type Category VT IDCO Episode Statistic Recent Count 0 IDCO Episode Statistic Recent Date Time Start 20160114 IDCO Episode Statistic Recent Date Time End 20160415 IDCO Episode Statistic Type Category VT IDCO Episode Statistic Vendor Type Category VT-1 IDCO Episode Statistic Recent Count 0 IDCO Episode Statistic Recent Date Time Start 20160114 IDCO Episode Statistic Recent Date Time End 20160415 IDCO Episode Statistic Type Category Monitor IDCO Episode Statistic Vendor Type Category IDCO Episode Statistic Recent Count 0 IDCO Episode Statistic Recent Date Time Start 20160114 IDCO Episode Statistic Recent Date Time End 20160415 IDCO Episode Statistic Type Category Other IDCO Episode Statistic Vendor Type Category IDCO Episode Statistic Recent Count 1 IDCO Episode Statistic Recent Date Time Start 20160114 IDCO Episode Statistic Recent Date Time End 20160415 IDCO Episode Statistic Type Category VT IDCO Episode Statistic Vendor Type Category NSVT IDCO Episode Statistic Recent Count 93 IDCO Episode Statistic Recent Date Time Start 20160114 IDCO Episode Statistic Recent Date Time End 20160415 IDCO Episode Statistic Type Category AT/AF IDCO Episode Statistic Vendor Type Category ATR IDCO Episode Statistic Recent Count 45 IDCO Episode Statistic Recent Date Time Start 20160114 IDCO Episode Statistic Recent Date Time End 20160415 IDCO Albaro Setting AT Mode Switch Mode [...] E162 IDCO Implantable Pulse Generator Serial Number [id number] IDCO Implantable Pulse Generator Formal Service Waiter [place] [employer] IDCO Implantable Pulse Generator Implant Date 20140110 IDCO Implantable Lead Model 4136 IDCO Implantable Lead Serial Number [id number] IDCO Implantable Lead Formal Service Waiter Guidant IDCO Implantable Lead Implant Date 20130421 IDCO Implantable Lead Polarity Type Bipolar Lead IDCO Implantable Lead Location Right Atrium IDCO Implantable Lead Model 0292 IDCO Implantable Lead Serial Number [id number] IDCO Implantable Lead Formal Service Waiter [place] [employer] IDCO Implantable Lead Implant Date IDCO Implantable Lead Location Right Ventricle IDCO Lead Channel Measurements Date and Time Start 20160114 IDCO Lead Channel Measurements Date and Time End 20160413 IDCO Lead Channel Sensing Intrinsic Amplitude Mean 2.3 mV IDCO Lead Channel Sensing Polarity Bipolar IDCO Lead Channel Pacing Threshold Amplitude 0.6 V IDCO Lead Channel Pacing Threshold Pulse Width 0.5 ms IDCO Lead Channel Pacing Threshold Measurement Method Top Icer Manual IDCO Lead Channel Pacing Threshold Polarity Bipolar IDCO Lead Channel Impedance Value 652 ohms IDCO Lead Channel Impedance Polarity Bipolar IDCO Lead Channel Measurements Date and Time Start 20160114 IDCO Lead Channel Measurements Date and Time End 20160413 IDCO Lead Channel Sensing Intrinsic Amplitude Mean 20.1 mV IDCO Lead Channel Sensing Polarity Bipolar IDCO Lead Channel Pacing Threshold Amplitude 0.6 V IDCO Lead Channel Pacing Threshold Pulse Width 0.5 ms IDCO Lead Channel Pacing Threshold Measurement Method Top Icer Manual IDCO Lead Channel Pacing Threshold Polarity Bipolar IDCO Lead Channel Impedance Value 664 ohms IDCO Lead Channel Impedance Polarity Bipolar IDCO Lead High Voltage Channel Date Time 20160413 IDCO Lead High Voltage Channel Impedance 100 ohms IDCO Lead High Voltage Channel Measurement Type Low Voltage Pulse IDCO Statistic Date Time Start 20160114 IDCO Statistic Date Time End 20160415 IDCO Albaro Statistic Date Time Start 20160114 IDCO Albaro Statistic Date Time End 20160415 IDCO Albaro Statistic RA Percent Paced 17 % IDCO Albaro Statistic RV Percent Paced 1 % IDCO Therapy Statistic Recent Date Time Start 20160114 IDCO Therapy Statistic Recent Date Time End 20160415 IDCO Therapy Statistic Recent Shocks Delivered 0 IDCO Therapy Statistic Total Date Time Start 20140110 IDCO Therapy Statistic Total Date Time End 20160415 IDCO Therapy Statistic Total Shocks Delivered 2 IDCO Therapy Statistic Recent Shocks Aborted 0 IDCO Therapy Statistic Total Shocks Aborted 0 IDCO Therapy Statistic Recent ATP Delivered 0 IDCO Therapy Statistic Total ATP Delivered 1 IDCO Anatomical Region Laterality Modality Other 04/15/2016 12:4 2 AM EST Physician Cardiology IMPLANTABLE CARD IAC DEVICE documented in this encounter Visit Diagnoses Not on filedocumented in this encounter Care Teams Acid Tank Cleaner Relationship Specialty Start Date End Date Ángel Bingham MD [facility]PH[facility] [address] [facility] [place] [address] PCP - General 01/31/14 09/01/16 documented as of this encounter
--- OUTSIDE RECORDS SUMMARY | 2023-11-03 01:27 | XMS_ITS | Encounter Summary ---
Author Organization [facility]ly [facility] [place] [address] Care Team Providers Care Program Mgr Name Role Phone Ángel Bingham MD Primary Care Provider [phone] Reason for Visit * Reason Onset Date Comments Medication Refill 04/25/2015 Encounter Details Date Type Department Care Team (Late st Contact Info) Description 04/25/2015 Refill Cardiology at [address] [address] Kit Self MD [facility] [place] [address] Medication Refill Social History Tobacco Use Types [...] AM EDT Hospital Encounter Non-[place] [address] Arrived documented as of this encounter Visit Diagnoses Not on filedocumented in this encounter Care Teams Program Mgr Relationship Specialty Start Date End Date Ángel Bingham MD [facility] [address] [place] [address] PCP - General 01/31/14 09/01/16 documented as of this encounter
--- OUTSIDE RECORDS SUMMARY | 2023-11-03 01:27 | XMS_ITS | Encounter Summary ---
Author Organization [facility] Address [facility] [place] [address] Care Team Providers Care Railway Signal Technician Name Role Phone Ángel Bingham MD Primary Care Provider [phone] Encounter Details Date Type Department Care Team (Latest Contact Info) Description 07/11/2015 3:30 PM EDT Office Visit Cardiology at [address] [phone] Kit Self MD [facility] [place] [address] ASCVD (arteriosclerotic cardiovascular disease); Typical atrial flutter Social History Tobacco Use Types Packs/Day Years [...] Sign Reading Time Taken Comments Blood Pressure 112/68 07/11/2015 3:00 PM EDT Pulse 58 07/11/2015 3:00 PM EDT Temperature - - Respiratory Rate - - Oxygen Saturation 98% 07/11/2015 3:00 PM EDT Inhaled Oxygen Concentration - - Weight 88 kg (194 lb) 07/11/2015 3:00 PM EDT Height 185.4 cm (6' 0.99) 07/11/2015 3:00 PM ED T Body Mass Index 25.6 07/11/2015 3:00 PM EDT documented in this encounter Progress Notes * Kit Self MD - 07/11/2015 3:31 PM EDT Images from the original note were not included. [facility] [place] [address] CARDIOLOGY OUTPATIENT FOLLOW-UP NOTE Marquez Hendrix [id number] PCP: ÁNGEL BINGHAM MD 07/11/2015 PRIMARY CARE PROVIDER: ÁNGEL BINGHAM MD PROBLEM LIST: Patient Active Problem List Diagnosis ??? ASCVD (arteriosclerotic cardiovascular disease) ?? Heart catheterization in [facility] in 2007 with placement of a stent in an unspecified vessel ?? Repeat heart catheterization in 2008 with placement of stents to both the LAD and circumflex ?? Followup heart catheterization in 2008 showing stable results in both vessels ?? Recurrent chest discomfort in a somewhat atypical pattern beginning fall ?? Nuclear stress test at [facility] in [place], [place] May 02, 2013 during which he developed left shoulder and arm discomfort during submaximal exercise on the treadmill and after which he was converted to a pharmacologic test; nuclear imaging showed ejection fraction of 45% with a partially reversible inferior defect ?? Cath [facility] 05/13/2013: normal left main, mild diffuse disease throughout the LAD with an 80% mid stenosis representing a restenosis lesion, mild diffuse disease in the proximal obtuse marginal branch, and mild diffuse disease throughout the right coronary artery; status post 3.0 X 12 mm JON to 80%mid-LAD lesion (in-stent restenosis) ?? Heart catheterization [facility] January 06, 2014 showing normal left main, hazy 50% mid LAD stenosis, mild diffuse disease throughout the circumflex, and moderate diffuse disease in the proximal RCA with a totally occluded distal RCA with brisk flow via bridging collaterals; fractional flow reserveon the LAD 0.85 ??? Typical atrial flutter ?? Occurred 06/08/13, lasted about 24 hours, and v rate about 80 (documented on ICD interrogation 07/18/14) ?? [id number] score = 3 ?? Patient initially reluctant to be anticoagulated as recommended ??? Atrial pacemaker lead displacement New finding at office follow up 04/10/2014 Plan lead reposition/replacement ??? ICD (implantable cardioverter-defibrillator), dual, in situ New Atrial electrode: Guidant Dextrus Model# 4126-53 cm Serial# [id number] ?? Bipolar, steroid-tipped, active-fixation IS-1 lead ?? [...] at 10 V: No Old Ventricular electrode: [place] [employer] Mobile [place] Model# 0292 Serial# [id number] ?? Bipolar, steroid-tipped, active-fixation DF-4 lead ?? [...] Atrial electrode: Guidant Dextrus Model# 4136 Serial# [id number] ?? Bipolar, steroid-tipped, active-fixation IS-1 lead ?? Access: Axillary vein ?? Location Removed 04/17/2014 ?? Implanted: 01/10/2014 Pulse generator: [employer] Incept[employer] Model# E162 Serial# [id number] ?? DDDR ICD ?? Location: Subcutaneous The [...] Outpatient Prescriptions Medication Sig Dispense Refill ??? magnesium 250 mg Tablet Take 250 mg by mouth daily. ??? atorvastatin (LIPITOR) 20 mg Tablet Take 20 mg by mouth daily. ??? meTOPROLOL tartrate (LOPRESSOR) 25 mg Tablet Take 1 tablet by mouth 2 times daily. 180 tablet 3 ??? traMADol (ULTRAM) 50 mg Tablet Take 50 mg by mouth every 6 hours as needed for Pain. ??? lisinopril (PRINIVIL;ZESTRIL) 20 mg Tablet Take 1 tablet by mouth daily. 30 tablet 12 ??? aspirin 81 mg EC tablet Take 1 tablet by mouth daily. 90 tablet 3 ??? zolpidem (AMBIEN) 10 mg tablet Take 10 mg by mouth nightly as needed. ??? pantoprazole (PROTONIX) 40 mg tablet Take 1 tablet by mouth 2 times daily. 90 tablet 6 ??? Sartell-3 Fatty Acids (FISH OIL) 500 mg Cap Take by mouth daily. ??? multivitamin capsule Take 1 capsule by mouth daily. ??? LANCETS MISC by Misc.(Non-Drug; Combo Route) route. ??? lamotrigine (LAMICTAL) 100 mg tablet Take 100 mg by mouth daily. ??? alprazolam (XANAX XR) 3 mg 24 hr tablet Take 3 mg by mouth as needed. ??? metformin (GLUCOPHAGE) 1,000 mg tablet Take 1,000 mg by mouth 2 times daily (with meals). ??? hydrOXYzine (ATARAX) 25 mg tablet Take 25 mg by mouth 3 times daily as needed. ??? glipizide (GLUCOTROL) 5 mg 24 hr tablet Take 10 mg by mouth daily. ??? nitroGLYcerin (NITROSTAT) 0.[address] 0.4 mg under the tongue every 5 minutes as needed. No current facility-administered medications for this visit. SUBJECTIVE: This 65-year-old man comes for a follow-up visit. He has known coronary artery disease as detailed above. He has received a defibrillator given his ischemic cardiomyopathy and documented ventricular tachycardia. He also has hypertension and paroxysmal atrial flutter. He comes for a routine visit today and indicates that he is doing well. He has been suffering from some mild depressionbut he feels this is improving. He reports a rare discomfort in his central chest which is somewhatsharp and often brought on by changes in position. He is describing no exertional symptoms. He describes a rare palpitation or fluttering. He says his breathing is good. OBJECTIVE: Vital Signs: BP 112/68 mmHg Pulse 58 Ht 185.4 cm (6' 0.99) Wt 87.998 kg (194 lb) BMI 25.60kg/m2 SpO2 98% Physical Exam: On exam he appeared in good health and spirits. Vital signs as documented. Skin warmand dry and without overt rashes. Neck without JVD. Lungs clear. Heart exam notable for regular rhythm, normal sounds and absence of murmurs, rubs or gallops. Abdomen unremarkable and without evidence of organomegally, masses, or abdominal aortic enlargement. Extremities non-edematous. DIAGNOSES: 1. Paroxysmal atrial flutter 2. Atherosclerotic cardiovascular disease 3. History of VT; status post ICD IMPRESSIONS: Overall he seems to be doing well. He is describing no ischemic sounding symptoms and is on an appropriate medical regimen. Once again we talked about management of his atrial flutter which occurs only rarely but which is associated with a [id number] score of at least 3. He continues to be reluctant about being anticoagulated, worried about potential side effects and complications from anticoagulation. I specifically reviewed literature which suggests that the newer medicines are safe and associated with a lower bleeding risk of anticoagulation with warfarin. He says he will giveit some thought. PLAN: 1. Continue current medications 2. Continue to consider anticoagulation 3. Routine cardiology follow-up in one year documented in this encounter Plan of Treatment Upcoming Encounters Date Type Department Care Team (Late st Contact Info) Description 12/18/2023 10:00 AM EDT Hospital Encounter Non-Invasive [place] [address] Arrived documented as of this encounter Visit Diagnoses Diagnosis ASCVD (arteriosclerotic cardiovascular disease) Unspecified cardiovascular disease Typical atrial flutter Atrial flutter documented in this encounter Care Teams Railway Signal Technician Relationship Specialty Start Date End Date Ángel Bingham MD [facility] [address] [place] [address] PCP - General 01/31/14 09/01/16 documented as of this encounter
--- OUTSIDE RECORDS SUMMARY | 2023-11-03 01:27 | XMS_ITS | Encounter Summary ---
Author Organization Formerly [facility] [place] [address] Care Team Providers Care Dining Room Attendant Cafeteria Name Role Phone Ángel Bingham MD Primary Care Provider Reason for Visit * Reason Comments Cardiomyopathy Encounter Details Date Type Department Care Team (Late st Contact Info) Description 07/11/2015 3:00 PM EDT Office Visit Cardiology at [address] [phone] Raul Lopes, NAHUN ICD (implantable cardioverter-defibril lator), dual, in situ; Sustained VT (ventricular tachycardia); Typical atrial flutter Social History Tobacco Use [...] Time Taken Comments Blood Pressure 112/68 07/11/2015 2:48 PM EDT Pulse 58 07/11/2015 2:48 PM EDT Temperature - - Respiratory Rate - - Oxygen Saturation 98% 07/11/2015 2:48 PM EDT on room air Inhaled Oxygen Concentration - - Weight 88 kg (194 lb) 07/11/2015 2:48 PM EDT Height 185.4 cm (6' 1) 07/11/2015 2:48 PM EDT Body Mass Index 25.6 07/11/2015 2:48 PM EDT documented in this encounter Progress Notes * Raul Lopes RN - 07/11/2015 2:45 PM EDT Marquez Hendrix is a 65 y.o. male who presents today in the clinic for ICD follow-up. 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 On 04/17/2014 he underwent an atrial lead revision for lead dislodgement. Previous device interrogations have yielded small burden of asymptomatic atrial flutter, generally <1 hr in duration. Patient resistant to begin anticoagulation. Metal Alloy Scientist: Kti Self MD PCP: ÁNGEL BINGHAM MD Final Parameters: New Atrial electrode: Guidant Dextrus Model# 4126-53 cm Serial# [id number] ?? Bipolar, steroid-tipped, active-fixation IS-1 lead ?? [...] at 10 V: No Old Ventricular electrode: [employer] [place] Model# 0292 Serial# [id number] ?? Bipolar, steroid-tipped, active-fixation DF-4 lead ?? [...] Atrial electrode: Guidant Dextrus Model# 4136 Serial# [id number] ?? Bipolar, steroid-tipped, active-fixation IS-1 lead ?? Access: Axillary vein ?? Location Removed 04/17/2014 ?? Implanted: 01/10/2014 Pulse generator: [employer] Incepta Model# E162 Serial# [id number] ?? DDDR ICD ?? Location: Subcutaneous Tachy settings: VF 220 bpm; ATP, 31j, 41j x 7 VT 180 bpm; Scan, 31j, 41j x 5 VT-1 155 bpm; Scan, RampScan, 0.9j, 11j, 41j x 3 Albaro settings: DDDR 55/130/130, Rythmiq enabled Atrial lead impedance: 707 ohms Right ventricular lead impedance: 628 ohms RV shock impedance: 84 ohms P wave: 5.3 mV R wave: 13.3 mV Atrial capture threshold: 0.5 V @ 0.5 ms Right ventricular capture threshold: 0.6 V at 0.5 ms Underlying rhythm: SR 60-65 bpm Heart rate histograms: Reasonable distribution Pacing percentages: AP 35%; SU[employer] <1% Mode switch episodes: 36 events in total, burden <1% since last reset 03/2014. Longest events (4) were between 1 hr and <24 hr. No EGMs nor further data with specific dates of the longer events. Monitored events: 22 Non-sustained events with EGMs consistent with very brief non-sustained VT as seen before Treated events: None Battery voltage: ANN, est 10.5 years remaining Charge time: 10.2 sec 07/09/2015 Chest x-ray: ok day post atrial lead revision Incision assessment: L chest no issues Impression: Normal device function Plan: Latitude 3 mos, RTC 6 mos. Patient seen by Dr. Self today in clinic Reprogramming: None Addendum I have personally reviewed the device interrogation as performed by Raul Lopes RN Single chamber ICD Reasonable rate histogram(s) Non sustained VT Brief atrial high rate events Brief non sustained Minimal V paced Normal device function Summary 1) Normal device function 2) Routine follow up as planned TA NEGRON MD documented in this encounter Plan of Treatment Upcoming Encounters Date Type Department Care Team (Late st Contact Info) Description 12/18/2023 10:00 AM EDT Hospital Encounter [place] [address] Arrived documented as of this encounter Visit Diagnoses Diagnosis ICD (implantable cardioverter-defibrillator), dual, in situ Sustained VT (ventricular tachycardia) Paroxysmal ventricular tachycardia Typical atrial flutter Atrial flutter documented in this encounter Care Teams Dining Room Attendant Cafeteria Relationship Specialty Start Date End Date Ángel Bingham MD [facility] [address] [place] [address] PCP - General 01/31/14 09/01/16 documented as of this encounter
--- OUTSIDE RECORDS SUMMARY | 2023-11-03 01:27 | XMS_ITS | Encounter Summary ---
[place] [address] Care Team Providers Care Gage Designer Name Role Phone Ángel Bingham MD Primary Care Provider [phone] Encounter Details Date Type Department Care Team (Late st Contact Info) Description 03/29/2015 External Results Cardiology at [address] [phone] Ángel Bingham MD [facility] [address] [place] [phone] Social History Tobacco Use Types Packs/Day Years [...] AM EDT Hospital Encounter Non-Invasive [place] [address] Arrived documented as of this encounter Procedures Procedure Name Priority Date/Time Associated Diagnosis Comments EP DEVICE SCAN Routine 01/16/2015 documented in this encounter Results * Scan Doc: EP Device (01/16/2015) Anatomical Region Laterality Modality Other Ángel Bingham MD MEDIA MGR SCAN EXT O RDR/RSLT documented in this encounter Visit Diagnoses Not on filedocumented in this encounter Care Teams Gage Designer Relationship Specialty Start Date End Date Ángel Bingham MD [facility] [address] [place] [address] PCP - General 01/31/14 09/01/16 documented as of this encounter
--- OUTSIDE RECORDS SUMMARY | 2023-11-03 01:27 | XMS_ITS | Encounter Summary ---
[place] [address] Care Team Providers Care Manager Inside Name Role Phone Ángel Bingham MD Primary Care Provider [phone] Encounter Details Date Type Department Care Team (Late st Contact Info) Description 04/23/2016 External Results Cardiology at [address] [phone] Ángel Bingham MD [facility] [address] [place] [address] Social History Tobacco Use Types Packs/Day Years [...] AM EDT Hospital Encounter Non-[place] [address] Arrived documented as of this encounter Procedures Procedure Name Priority Date/Time Associated Diagnosis Comments EP DEVICE SCAN Routine 04/15/2016 documented in this encounter Results * Scan Doc: EP Device (04/15/2016) Anatomical Region Laterality Modality Other Ángel Bingham MD MEDIA MGR SCAN EXT O RDR/RSLT documented in this encounter Visit Diagnoses Not on filedocumented in this encounter Care Teams Manager Inside Relationship Specialty Start Date End Date Ángel Bingham MD [facility] [address] [place] [address] [place] [address] PCP - General 01/31/14 09/01/16 documented as of this encounter
--- OUTSIDE RECORDS SUMMARY | 2023-11-03 01:27 | XMS_ITS | Encounter Summary ---
Author Organization [facility] Address [facility] [place] [address] Care Team Providers Care Radiochemical Technician Name Role Phone Ángel Bingham MD Primary Care Provider [phone] Encounter Details Date Type Department Care Team (Late st Contact Info) Description 04/25/2015 Telephone Cardiology at [address] [phone] Kasandra Bellamy RN Social History Tobacco Use Types Packs/Day [...] encounter Miscellaneous Notes * Telephone Encounter - Kasandra Bellamy RN - 04/25/2015 3:[address] Self said metoprolol tartrate 25 mg PO BID would be acceptable. Pt agreed with plan Sent 90-day supply to [facility]. * Telephone Encounter - Kasandra Bellamy RN - 04/25/2015 2:32 PM EST Pt returned call to clinic and we discussed Dr. Self's plan. According to pt's formulary list, preferred medications are; atenolol, bisoprolol, or metoprolol tartrate. Will reassess with provider. * Telephone Encounter - Kasandra Bellamy RN - 04/25/2015 2:10 PM EST Pt called today concerned that his insurance company will no longer cover his Betaxolol [address]. Self. OK to switch to metoprolol succinate 50 mg 1 tab PO QD. Prescription sent to pharmacy on-file. Unable to reach pt at number listed. documented in this encounter Plan of Treatment Upcoming Encounters Date Type Department Care Team (Late st Contact Info) Description 12/18/2023 10:00 AM EDT Hospital Encounter [place] [address] Arrived documented as of this encounter Visit Diagnoses Not on filedocumented in this encounter Care Teams Radiochemical Technician Relationship Specialty Start Date End Date Ángel Bingham MD [facility] [address] [place] [address] PCP - General 01/31/14 09/01/16 documented as of this encounter
--- OUTSIDE RECORDS SUMMARY | 2023-11-03 01:27 | XMS_ITS | Encounter Summary ---
[place] [address] Care Team Providers Care Neurology Physician Assistant Name Role Phone Ángel Bingham MD Primary Care Provider Encounter Details Date Type Department Care Team (Late st Contact Info) Description 01/14/2015 Orders Only Cardiology at [address] [phone] Social History Tobacco Use Types Packs/Day Years [...] AM EDT Hospital Encounter Non-In[place] [address] Arrived documented as of this encounter Procedures Procedure Name Priority Date/Time Associated Diagnosis Comments CARDIAC DEVICE CHECK - REMOTE PATIENT INITIATED Routine 01/14/2015 10:19 PM EDT documented in this encounter Results * Cardiac device check - Remote Patient Initiated (01/14/2015 10:19 PM EDT) Date Time Interrogation Session [id number] IDCO Type Interrogation Session Remote Patient Initiated IDCO Clinic Name [facility] IDCO Battery Date Time of Measurements [id number] IDCO Battery Status Beginning of Service IDCO Battery Remaining Longevity 126 mo IDCO Battery Remaining Percentage 100 % IDCO Capacitor Last Charge Date Time IDCO Capacitor Charge Time 10.0 s IDCO Capacitor Charge Type Reformation IDCO Episode Identifier APM-10 IDCO Episode Date Time [id number] IDCO Episode Type Category Periodic EGM IDCO Episode Vendor Type Category APMRT IDCO Episode Detection And Therapy Details Presenting EGM [facility] Episode Date Time [id number] IDCO Episode Type Category Other IDCO Episode Vendor Type Category XANDER IDCO Episode Detection Interval Ventricular 1,364 ms IDCO Episode Duration 63 s IDCO Episode Detection And Therapy Details [facility] Episode Date Time [id number] IDCO Episode Type Category Other IDCO Episode Vendor Type Category XANDER IDCO Episode Detection Interval Ventricular 1,071 ms IDCO Episode Duration 62 s IDCO Episode Detection And Therapy Details [facility] IDCO Episode Identifier [facility]-88 IDCO Episode Date Time [id number] IDCO Episode Type Category Other IDCO Episode Vendor Type Category XANDER IDCO Episode Detection Interval Ventricular 1,071 ms IDCO Episode Duration 63 s IDCO Episode Detection And Therapy Details [facility] IDCO Episode Identifier INQ-87 IDCO Episode Date Time [id number] IDCO Episode Type Category Other IDCO Episode Vendor Type Category XANDER IDCO Episode Detection Interval Ventricular 1,071 ms IDCO Episode Duration 64 s IDCO Episode Detection And Therapy Details [facility] IDCO Episode Identifier INQ-86 IDCO Episode Date Time [id number] IDCO Episode Type Category Other IDCO Episode Vendor Type Category XANDER IDCO Episode Detection Interval Ventricular 1,364 ms IDCO Episode Duration 64 s IDCO Episode Detection And Therapy Details [facility] IDCO Episode Identifier ATR- IDCO Episode Date Time [id number] IDCO Episode Type Category AT/AF IDCO Episode Vendor Type Category ATR IDCO Episode Detection Interval Atrial 270 ms IDCO Episode Duration 18 s IDCO Episode Detection And Therapy Details ATR [facility] Episode Date Time IDCO Episode Type Category Other IDCO Episode Vendor Type Category XANDER IDCO Episode Detection Interval Ventricular 1,364 ms IDCO Episode Duration 117 s IDCO Episode Detection And Therapy Details [facility] IDCO Episode Identifier [id number] IDCO Episode Date Time IDCO Episode Type Category Other IDCO Episode Vendor Type Category XANDER IDCO Episode Detection Interval Ventricular 1,333 ms IDCO Episode Duration 63 s IDCO Episode Detection And Therapy Details [facility] IDCO Episode Identifier [facility] IDCO Episode Date Time IDCO Episode Type Category Other IDCO Episode Vendor Type Category XANDER IDCO Episode Detection Interval Ventricular 882 ms IDCO Episode Duration 56 s IDCO Episode Detection And Therapy Details [facility] IDCO Episode Identifier [facility] IDCO Episode Date Time IDCO Episode Type Category Other IDCO Episode Vendor Type Category XANDER IDCO Episode Detection Interval Ventricular 896 ms IDCO Episode Duration 52 s IDCO Episode Detection And Therapy Details [facility] IDCO Episode Identifier [facility] IDCO Episode Date Time IDCO Episode Type Category Other IDCO Episode Vendor Type Category XANDER IDCO Episode Detection Interval Ventricular 1,053 ms IDCO Episode Duration 49 s IDCO Episode Detection And Therapy Details IDCO Episode Identifier ATR- IDCO Episode Date Time [id number] IDCO Episode Type Category AT/AF IDCO Episode Vendor Type Category ATR IDCO Episode Detection Interval Atrial 845 ms IDCO Episode Duration 1 s IDCO Episode Detection And Therapy Details ATR IDCO Episode Identifier ATR- IDCO Episode Date Time [id number] IDCO Episode Type Category AT/AF IDCO Episode Vendor Type Category ATR IDCO Episode Detection Interval Atrial 566 ms IDCO Episode Duration 5 s IDCO Episode Detection And Therapy Details ATR IDCO Episode Identifier ATR- IDCO Episode Date Time [id number] IDCO Episode Type Category AT/AF IDCO Episode Vendor Type Category ATR IDCO Episode Detection Interval Atrial 260 ms IDCO Episode Duration 321 s IDCO Episode Detection And Therapy Details ATR IDCO Episode Identifier ATR- IDCO Episode Date Time [id number] IDCO Episode Type Category AT/AF IDCO Episode Vendor Type Category ATR IDCO Episode Detection Interval Atrial 237 ms IDCO Episode Duration 160 s IDCO Episode Detection And Therapy Details ATR IDCO Episode Identifier ATR-22 IDCO Episode Date Time IDCO Episode Type Category AT/AF IDCO Episode Vendor Type Category ATR IDCO Episode Detection Interval Atrial 984 ms IDCO Episode Duration 1 s IDCO Episode Detection And Therapy Details ATR IDCO Episode Identifier ATR-21 IDCO Episode Date Time [id number] IDCO Episode Type Category AT/AF IDCO Episode Vendor Type Category ATR IDCO Episode Detection Interval Atrial 833 ms IDCO Episode Duration 1 s IDCO Episode Detection And Therapy Details ATR IDCO Episode Identifier ATR-20 IDCO Episode Date Time [id number] IDCO Episode Type Category AT/AF IDCO Episode Vendor Type Category ATR IDCO Episode Detection Interval Atrial 268 ms IDCO Episode Duration 37 s IDCO Episode Detection And Therapy Details ATR IDCO Episode Identifier ATR-19 IDCO Episode Date Time [id number] IDCO Episode Type Category AT/AF IDCO Episode Vendor Type Category ATR IDCO Episode Detection Interval Atrial 253 ms IDCO Episode Duration 149 s IDCO Episode Detection And Therapy Details ATR IDCO Episode Identifier ATR-18 IDCO Episode Date Time [id number] IDCO Episode Type Category AT/AF IDCO Episode Vendor Type Category ATR IDCO Episode Detection Interval Atrial 265 ms IDCO Episode Duration 28 s IDCO Episode Detection And Therapy Details ATR IDCO Episode Statistic Type Category VF IDCO Episode Statistic Vendor Type Category VF IDCO Episode Statistic Recent Count 0 IDCO Episode Statistic Recent Date Time Start 20140418 IDCO Episode Statistic Recent Date Time End 20150114 IDCO Episode Statistic Type Category VT IDCO Episode Statistic Vendor Type Category VT IDCO Episode Statistic Recent Count 0 IDCO Episode Statistic Recent Date Time Start 20140418 IDCO Episode Statistic Recent Date Time End 20150114 IDCO Episode Statistic Type Category VT IDCO Episode Statistic Vendor Type Category VT-1 IDCO Episode Statistic Recent Count 0 IDCO Episode Statistic Recent Date Time Start 20140418 IDCO Episode Statistic Recent Date Time End 20150114 IDCO Episode Statistic Type Category Monitor IDCO Episode Statistic Vendor Type Category IDCO Episode Statistic Recent Count 0 IDCO Episode Statistic Recent Date Time Start 20140418 IDCO Episode Statistic Recent Date Time End 20150114 IDCO Episode Statistic Type Category Other IDCO Episode Statistic Vendor Type Category IDCO Episode Statistic Recent Count 0 IDCO Episode Statistic Recent Date Time Start 20140418 IDCO Episode Statistic Recent Date Time End 20150114 IDCO Episode Statistic Type Category VT IDCO Episode Statistic Vendor Type Category NSVT IDCO Episode Statistic Recent Count 2 IDCO Episode Statistic Recent Date Time Start 20140418 IDCO Episode Statistic Recent Date Time End 20150114 IDCO Episode Statistic Type Category AT/AF IDCO Episode Statistic Vendor Type Category ATR IDCO Episode Statistic Recent Count 26 IDCO Episode Statistic Recent Date Time Start 20140418 IDCO Episode Statistic Recent Date Time End 20150114 IDCO Albaro Setting AT Mode Switch Mode [...] E162 IDCO Implantable Pulse Generator Serial Number [id number] IDCO Implantable Pulse Generator Lockstitch Sleeve Setter [place] [employer] IDCO Implantable Pulse Generator Implant Date 20140110 IDCO Implantable Lead Model 4136 IDCO Implantable Lead Serial Number [id number] IDCO Implantable Lead Lockstitch Sleeve Setter Guidant IDCO Implantable Lead Implant Date 20130421 IDCO Implantable Lead Polarity Type Bipolar Lead IDCO Implantable Lead Location Right Atrium IDCO Implantable Lead Model 0292 IDCO Implantable Lead Serial Number [id number] IDCO Implantable Lead Lockstitch Sleeve Setter [place] [employer] IDCO Implantable Lead Implant Date IDCO Implantable Lead Location Right Ventricle IDCO Lead Channel Measurements Date and Time Start 20140718 IDCO Lead Channel Measurements Date and Time End 20150114 IDCO Lead Channel Sensing Intrinsic Amplitude Mean 4.0 mV IDCO Lead Channel Sensing Polarity Bipolar IDCO Lead Channel Pacing Threshold Amplitude 0.6 V IDCO Lead Channel Pacing Threshold Pulse Width 0.5 ms IDCO Lead Channel Pacing Threshold Measurement Method [facility] Manual IDCO Lead Channel Pacing Threshold Polarity Bipolar IDCO Lead Channel Impedance Value 709 ohms IDCO Lead Channel Impedance Polarity Bipolar IDCO Lead Channel Measurements Date and Time Start 20140718 IDCO Lead Channel Measurements Date and Time End 20150114 IDCO Lead Channel Sensing Intrinsic Amplitude Mean 11.3 mV IDCO Lead Channel Sensing Polarity Bipolar IDCO Lead Channel Pacing Threshold Amplitude 0.6 V IDCO Lead Channel Pacing Threshold Pulse Width 0.5 ms IDCO Lead Channel Pacing Threshold Measurement Method [facility] Manual IDCO Lead Channel Pacing Threshold Polarity Bipolar IDCO Lead Channel Impedance Value 580 ohms IDCO Lead Channel Impedance Polarity Bipolar IDCO Lead High Voltage Channel Date Time 20150114 IDCO Lead High Voltage Channel Impedance 89 ohms IDCO Lead High Voltage Channel Measurement Type Low Voltage Pulse IDCO Statistic Date Time Start 20140418 IDCO Statistic Date Time End 20150114 IDCO Albaro Statistic Date Time Start 20140418 IDCO Albaro Statistic Date Time End 20150114 IDCO Albaro Statistic RA Percent Paced 17 % IDCO Albaro Statistic RV Percent Paced 0 % IDCO Anatomical Region Laterality Modality Other 01/14/2015 10:1 9 PM EDT Physician Cardiology IMPLANTABLE CARD IAC DEVICE documented in this encounter Visit Diagnoses Not on filedocumented in this encounter Care Teams Neurology Physician Assistant Relationship Specialty Start Date End Date Ángel Bingham MD [facility] [address] [place] [address] PCP - General 01/31/14 09/01/16 documented as of this encounter
--- OUTSIDE RECORDS SUMMARY | 2023-11-03 01:27 | XMS_ITS | Encounter Summary ---
Author Organization [facility] [place] [address] Care Team Providers Care Plastics Nurse Name Role Phone Ángel Bingham MD Primary Care Provider [phone] Reason for Visit * Reason Comments Medication Refill Encounter Details Date Type Department Care Team (Late st Contact Info) Description 03/03/2015 Refill Cardiology at [address] [phone] Kit Self MD [facility] [address] Medication Refill Social History Tobacco Use Types [...] AM EDT Hospital Encounter Non-Invasive [place] [phone] Arrived documented as of this encounter Visit Diagnoses Not on filedocumented in this encounter Care Teams Plastics Nurse Relationship Specialty Start Date End Date Ángel Bingham MD [facility] [address] [place] [address] PCP - General 01/31/14 09/01/16 documented as of this encounter
--- OUTSIDE RECORDS SUMMARY | 2023-11-03 01:27 | XMS_ITS | Encounter Summary ---
[place] [address] Care Team Providers Care Cap Jewel Plate Assembler Name Role Phone Dewayne Carrington MD Primary Care Provider [phone] Encounter Details Date Type Department Care Team (Late st Contact Info) Description 09/03/2016 Orders Only Cardiology at [address] [address] Social History Tobacco Use Types Packs/Day Years [...] AM EDT Hospital Encounter [place] [address] Arrived documented as of this encounter Procedures Procedure Name Priority Date/Time Associated Diagnosis Comments CARDIAC DEVICE CHECK - REMOTE PATIENT INITIATED Routine 09/03/2016 3:22 AM EDT documented in this encounter Results * Cardiac device check - Remote Patient Initiated (09/03/2016 3:22 AM EDT) Date Time Interrogation Session [id number] IDCO Type Interrogation Session Remote Patient Initiated IDCO Clinic Name [facility] IDCO Battery Date Time of Measurements [id number] IDCO Battery Status Beginning of Service IDCO Battery Remaining Longevity 108 mo IDCO Battery Remaining Percentage 100 % IDCO Capacitor Last Charge Date Time [id number] IDCO Capacitor Charge Time 10.4 s IDCO Capacitor Charge Type Reformation IDCO Capacitor Last Charge Date Time [id number] IDCO Capacitor Charge Time 3.8 s IDCO Capacitor Charge Energy 21 J IDCO Capacitor Charge Type Shock IDCO Episode Identifier APM-18 IDCO Episode Date Time [id number] IDCO Episode Type Category Periodic EGM IDCO Episode Vendor Type Category APMRT IDCO Episode Detection And Therapy Details Presenting EGM IDCO Episode Identifier [id number] IDCO Episode Date Time [id number] IDCO Episode Type Category Other IDCO Episode Vendor Type Category XANDER IDCO Episode Detection Interval Ventricular 923 ms IDCO Episode Duration 57 s IDCO Episode Detection And Therapy Details IDCO Episode Identifier [id number] IDCO Episode Date Time IDCO Episode Type Category Other IDCO Episode Vendor Type Category XANDER IDCO Episode Detection Interval Ventricular 923 ms IDCO Episode Duration 57 s IDCO Episode Detection And Therapy Details IDCO Episode Identifier - IDCO Episode Date Time IDCO Episode Type Category Other IDCO Episode Vendor Type Category XANDER IDCO Episode Detection Interval Ventricular 952 ms IDCO Episode Duration 56 s IDCO Episode Detection And Therapy Details IDCO Episode Identifier [id number] IDCO Episode Date Time [id number] IDCO Episode Type Category Other IDCO Episode Vendor Type Category XANDER IDCO Episode Detection Interval Ventricular 870 ms IDCO Episode Duration 54 s IDCO Episode Detection And Therapy Details IDCO Episode Identifier [id number] IDCO Episode Date Time [id number] IDCO Episode Type Category Other IDCO Episode Vendor Type Category XANDER IDCO Episode Detection Interval Ventricular 690 ms IDCO Episode Duration 40 s IDCO Episode Detection And Therapy Details IDCO Episode Identifier [id number] IDCO Episode Date Time IDCO Episode Type Category Other IDCO Episode Vendor Type Category XANDER IDCO Episode Detection Interval Ventricular 968 ms IDCO Episode Duration 58 s IDCO Episode Detection And Therapy Details Q IDCO Episode Identifier [id number] IDCO Episode Date Time [id number] IDCO Episode Type Category Other IDCO Episode Vendor Type Category XANDER IDCO Episode Detection Interval Ventricular 952 ms IDCO Episode Duration 58 s IDCO Episode Detection And Therapy Details IDCO Episode Identifier [id number] IDCO Episode Date Time [id number] IDCO Episode Type Category Other IDCO Episode Vendor Type Category XANDER IDCO Episode Detection Interval Ventricular 909 ms IDCO Episode Duration 78 s IDCO Episode Detection And Therapy Details IDCO Episode Identifier [id number] IDCO Episode Date Time [id number] IDCO Episode Type Category Other IDCO Episode Vendor Type Category XANDER IDCO Episode Detection Interval Ventricular 984 ms IDCO Episode Duration 54 s IDCO Episode Detection And Therapy Details IDCO Episode Identifier [id number] IDCO Episode Date Time [id number] IDCO Episode Type Category Other IDCO Episode Vendor Type Category XANDER IDCO Episode Detection Interval Ventricular 923 ms IDCO Episode Duration 53 s IDCO Episode Detection And Therapy Details Q IDCO Episode Identifier ATR-120 IDCO Episode Date Time [id number] IDCO Episode Type Category AT/AF IDCO Episode Vendor Type Category ATR IDCO Episode Detection Interval Atrial 265 ms IDCO Episode Duration 52 s IDCO Episode Detection And Therapy Details ATR IDCO Episode Identifier ATR-119 IDCO Episode Date Time [id number] IDCO Episode Type Category AT/AF IDCO Episode Vendor Type Category ATR IDCO Episode Detection Interval Atrial 227 ms IDCO Episode Duration 19,859 s IDCO Episode Detection And Therapy Details ATR IDCO Episode Identifier ATR-118 IDCO Episode Date Time [id number] IDCO Episode Type Category AT/AF IDCO Episode Vendor Type Category ATR IDCO Episode Detection Interval Atrial 800 ms IDCO Episode Duration 1 s IDCO Episode Detection And Therapy Details ATR IDCO Episode Identifier ATR-117 IDCO Episode Date Time [id number] IDCO Episode Type Category AT/AF IDCO Episode Vendor Type Category ATR IDCO Episode Detection Interval Atrial 287 ms IDCO Episode Duration 27 s IDCO Episode Detection And Therapy Details ATR IDCO Episode Identifier ATR-116 IDCO Episode Date Time [id number] IDCO Episode Type Category AT/AF IDCO Episode Vendor Type Category ATR IDCO Episode Detection Interval Atrial 882 ms IDCO Episode Duration 4 s IDCO Episode Detection And Therapy Details ATR IDCO Episode Identifier ATR-115 IDCO Episode Date Time [id number] IDCO Episode Type Category AT/AF IDCO Episode Vendor Type Category ATR IDCO Episode Detection Interval Atrial 317 ms IDCO Episode Duration 487 s IDCO Episode Detection And Therapy Details ATR IDCO Episode Identifier ATR-114 IDCO Episode Date Time [id number] IDCO Episode Type Category AT/AF IDCO Episode Vendor Type Category ATR IDCO Episode Detection Interval Atrial 241 ms IDCO Episode Duration 53 s IDCO Episode Detection And Therapy Details ATR IDCO Episode Identifier V-171 IDCO Episode Date Time [id number] IDCO Episode Type Category VT IDCO Episode Vendor Type Category NSVT IDCO Episode Type Induced Flag NO IDCO Episode Detection Interval Ventricular 353 ms IDCO Episode Duration 6 s IDCO Episode Detection And Therapy Details NonSustV IDCO Episode Identifier V-170 IDCO Episode Date Time [id number] IDCO Episode Type Category VT IDCO Episode Vendor Type Category NSVT IDCO Episode Type Induced Flag NO IDCO Episode Detection Interval Ventricular 351 ms IDCO Episode Duration 6 s IDCO Episode Detection And Therapy Details NonSustV IDCO Episode Identifier V-169 IDCO Episode Date Time IDCO Episode Type Category VT IDCO Episode Vendor Type Category NSVT IDCO Episode Type Induced Flag NO IDCO Episode Detection Interval Ventricular 351 ms IDCO Episode Duration 6 s IDCO Episode Detection And Therapy Details NonSustV IDCO Episode Identifier V-168 IDCO Episode Date Time [id number] IDCO Episode Type Category VT IDCO Episode Vendor Type Category NSVT IDCO Episode Type Induced Flag NO IDCO Episode Detection Interval Ventricular 351 ms IDCO Episode Duration 18 s IDCO Episode Detection And Therapy Details NonSustV IDCO Episode Identifier V-167 IDCO Episode Date Time [id number] IDCO Episode Type Category VT IDCO Episode Vendor Type Category NSVT IDCO Episode Type Induced Flag NO IDCO Episode Detection Interval Ventricular 359 ms IDCO Episode Duration 10 s IDCO Episode Detection And Therapy Details NonSustV IDCO Episode Identifier V-166 IDCO Episode Date Time [id number] IDCO Episode Type Category VT IDCO Episode Vendor Type Category NSVT IDCO Episode Type Induced Flag NO IDCO Episode Detection Interval Ventricular 359 ms IDCO Episode Duration 7 s IDCO Episode Detection And Therapy Details NonSustV IDCO Episode Identifier V-165 IDCO Episode Date Time [id number] IDCO Episode Type Category VT IDCO Episode Vendor Type Category NSVT IDCO Episode Type Induced Flag NO IDCO Episode Detection Interval Ventricular 305 ms IDCO Episode Duration 7 s IDCO Episode Detection And Therapy Details NonSustV IDCO Episode Identifier V-164 IDCO Episode Date Time [id number] IDCO Episode Type Category VT IDCO Episode Vendor Type Category NSVT IDCO Episode Type Induced Flag NO IDCO Episode Detection Interval Ventricular 368 ms IDCO Episode Duration 6 s IDCO Episode Detection And Therapy Details NonSustV IDCO Episode Identifier V-163 IDCO Episode Date Time [id number] IDCO Episode Type Category VT IDCO Episode Vendor Type Category NSVT IDCO Episode Type Induced Flag NO IDCO Episode Detection Interval Ventricular 368 ms IDCO Episode Duration 7 s IDCO Episode Detection And Therapy Details NonSustV IDCO Episode Identifier V-162 IDCO Episode Date Time [id number] IDCO Episode Type Category VT IDCO Episode Vendor Type Category NSVT IDCO Episode Type Induced Flag NO IDCO Episode Detection Interval Ventricular 377 ms IDCO Episode Duration 7 s IDCO Episode Detection And Therapy Details NonSustV IDCO Episode Identifier ATR-113 IDCO Episode Date Time [id number] IDCO Episode Type Category AT/AF IDCO Episode Vendor Type Category ATR IDCO Episode Detection Interval Atrial 258 ms IDCO Episode Duration 10 s IDCO Episode Detection And Therapy Details ATR IDCO Episode Identifier ATR-112 IDCO Episode Date Time [id number] IDCO Episode Type Category AT/AF IDCO Episode Vendor Type Category ATR IDCO Episode Detection Interval Atrial 246 ms IDCO Episode Duration 228 s IDCO Episode Detection And Therapy Details ATR IDCO Episode Identifier ATR-111 IDCO Episode Date Time [id number] IDCO Episode Type Category AT/AF IDCO Episode Vendor Type Category ATR IDCO Episode Detection Interval Atrial 258 ms IDCO Episode Duration 15,253 s IDCO Episode Detection And Therapy Details ATR IDCO Episode Statistic Type Category VF IDCO Episode Statistic Vendor Type Category VF IDCO Episode Statistic Recent Count 0 IDCO Episode Statistic Recent Date Time Start 20160114 IDCO Episode Statistic Recent Date Time End 20160903 IDCO Episode Statistic Type Category VT IDCO Episode Statistic Vendor Type Category VT IDCO Episode Statistic Recent Count 0 IDCO Episode Statistic Recent Date Time Start 20160114 IDCO Episode Statistic Recent Date Time End 20160903 IDCO Episode Statistic Type Category VT IDCO Episode Statistic Vendor Type Category VT-1 IDCO Episode Statistic Recent Count 0 IDCO Episode Statistic Recent Date Time Start 20160114 IDCO Episode Statistic Recent Date Time End 20160903 IDCO Episode Statistic Type Category Monitor IDCO Episode Statistic Vendor Type Category IDCO Episode Statistic Recent Count 0 IDCO Episode Statistic Recent Date Time Start 20160114 IDCO Episode Statistic Recent Date Time End 20160903 IDCO Episode Statistic Type Category Other IDCO Episode Statistic Vendor Type Category IDCO Episode Statistic Recent Count 1 IDCO Episode Statistic Recent Date Time Start 20160114 IDCO Episode Statistic Recent Date Time End 20160903 IDCO Episode Statistic Type Category VT IDCO Episode Statistic Vendor Type Category NSVT IDCO Episode Statistic Recent Count 116 IDCO Episode Statistic Recent Date Time Start 20160114 IDCO Episode Statistic Recent Date Time End 20160903 IDCO Episode Statistic Type Category AT/AF IDCO Episode Statistic Vendor Type Category ATR IDCO Episode Statistic Recent Count 55 IDCO Episode Statistic Recent Date Time Start 20160114 IDCO Episode Statistic Recent Date Time End 20160903 IDCO Albaro Setting AT Mode Switch Mode [...] E162 IDCO Implantable Pulse Generator Serial Number [id number] IDCO Implantable Pulse Generator Agronomy Specialist [place] Scientific IDCO Implantable Pulse Generator Implant Date 20140110 IDCO Implantable Lead Model 4136 IDCO Implantable Lead Serial Number [id number] IDCO Implantable Lead Agronomy Specialist Guidant IDCO Implantable Lead Implant Date 20130421 IDCO Implantable Lead Polarity Type Bipolar Lead IDCO Implantable Lead Location Right Atrium IDCO Implantable Lead Model 0292 IDCO Implantable Lead Serial Number [id number] IDCO Implantable Lead Agronomy Specialist [place] Scientific IDCO Implantable Lead Implant Date IDCO Implantable Lead Location Right Ventricle IDCO Lead Channel Measurements Date and Time Start 20160114 IDCO Lead Channel Measurements Date and Time End 20160902 IDCO Lead Channel Sensing Intrinsic Amplitude Mean 6.2 mV IDCO Lead Channel Sensing Polarity Bipolar IDCO Lead Channel Pacing Threshold Amplitude 0.6 V IDCO Lead Channel Pacing Threshold Pulse Width 0.5 ms IDCO Lead Channel Pacing Threshold Measurement Method Business Systems Manager Manual IDCO Lead Channel Pacing Threshold Polarity Bipolar IDCO Lead Channel Impedance Value 604 ohms IDCO Lead Channel Impedance Polarity Bipolar IDCO Lead Channel Measurements Date and Time Start 20160114 IDCO Lead Channel Measurements Date and Time End 20160902 IDCO Lead Channel Sensing Intrinsic Amplitude Mean 10.6 mV IDCO Lead Channel Sensing Polarity Bipolar IDCO Lead Channel Pacing Threshold Amplitude 0.6 V IDCO Lead Channel Pacing Threshold Pulse Width 0.5 ms IDCO Lead Channel Pacing Threshold Measurement Method Business Systems Manager Manual IDCO Lead Channel Pacing Threshold Polarity Bipolar IDCO Lead Channel Impedance Value 653 ohms IDCO Lead Channel Impedance Polarity Bipolar IDCO Lead High Voltage Channel Date Time 20160902 IDCO Lead High Voltage Channel Impedance 91 ohms IDCO Lead High Voltage Channel Measurement Type Low Voltage Pulse IDCO Statistic Date Time Start 20160114 IDCO Statistic Date Time End 20160903 IDCO Albaro Statistic Date Time Start 20160114 IDCO Albaro Statistic Date Time End 20160903 IDCO Albaro Statistic RA Percent Paced 15 % IDCO Albaro Statistic RV Percent Paced 1 % IDCO Therapy Statistic Recent Date Time Start 20160114 IDCO Therapy Statistic Recent Date Time End 20160903 IDCO Therapy Statistic Recent Shocks Delivered 0 IDCO Therapy Statistic Total Date Time Start 20140110 IDCO Therapy Statistic Total Date Time End 20160903 IDCO Therapy Statistic Total Shocks Delivered 2 IDCO Therapy Statistic Recent Shocks Aborted 0 IDCO Therapy Statistic Total Shocks Aborted 0 IDCO Therapy Statistic Recent ATP Delivered 0 IDCO Therapy Statistic Total ATP Delivered 1 IDCO Anatomical Region Laterality Modality Other 09/03/2016 3:22 AM EDT Physician Cardiology IMPLANTABLE CARD IAC DEVICE documented in this encounter Visit Diagnoses Not on filedocumented in this encounter Care Teams Cap Jewel Plate Assembler Relationship Specialty Start Date End Date Dewayne Carrington MD [address] [place] [address] PCP - General 09/02/16 documented as of this encounter
--- OUTSIDE RECORDS SUMMARY | 2023-11-03 01:27 | XMS_ITS | Encounter Summary ---
Author Organization [facility] [place] [address] Care Team Providers Care Leveler Helper Name Role Phone Dewayne Carrington MD Primary Care Provider [phone] Encounter Details Date Type Department Care Team ([facility] Contact Info) Description 09/02/2016 External Results [place] [phone] Danae Sepulveda [address] [place] [address] Social History Tobacco Use Types Packs/Day Years [...] Upcoming Encounters Date Type Department Care Team ([facility] Contact Info) Description 12/18/2023 10:00 AM EDT Hospital Encounter Non-[place] [address] Arrived documented as of this encounter Procedures Procedure Name Priority Date/Time Associated Diagnosis Comments ECG SCAN Routine 09/02/2016 documented in this encounter Results * Scan Doc: ECG (09/02/2016) Danae Sepulveda MEDIA MGR SCAN EXT O RDR/RSLT documented in this encounter Visit Diagnoses Not on filedocumented in this encounter Care Teams Leveler Helper Relationship Specialty Start Date End Date Dewayne Carrington MD [facility] [place] [address] PCP - General 09/02/16 documented as of this encounter
--- OUTSIDE RECORDS SUMMARY | 2023-11-03 01:27 | XMS_ITS | Encounter Summary ---
[place] [address] Care Team Providers Care Import/Export Agent Name Role Phone Ángel Bingham MD Primary Care Provider [phone] Reason for Visit * Reason Onset Date Comments Medication Management 2015 Encounter Details Date Type Department Care Team (Late st Contact Info) Description 2015 Telephone Cardiology at [address] [phone] Rosanna Morrow, optometrist Management Social History Tobacco Use Types Packs/Day Years [...] Telephone Encounter - Rosanna Morrow RN - 2015 4:17 PM EST Patient called and wanted to know if it is ok to take Lisinopril with Metoprolol. He had an episodeyesterday where he got up from sitting and felt a little lightheaded. He feels fine today. He has been on beta-blockers and Lisinopril for years. His PCP prescribed the lisinopril. His b/p is 118/67 and pulse 60-163 which is normal for him. Instructed patient to make sure he is drinking enough fluids. Also told him to continue to monitor his b/p and if gets lower and if he becomes more symptomatic he should call his PCP to see if dose of Lisinopril needs lowered. Patient verbalized understanding and agreed with plan. documented in this encounter Plan of Treatment Upcoming Encounters Date Type Department Care Team (Late st Contact Info) Description 12/18/2023 10:00 AM EDT Hospital Encounter Non-[place] [address] Arrived documented as of this encounter Visit Diagnoses Not on filedocumented in this encounter Care Teams Import/Export Agent Relationship Specialty Start Date End Date Ángel Bingham MD [facility] [address] [place] [address] PCP - General 01/31/14 09/01/16 documented as of this encounter
--- OUTSIDE RECORDS SUMMARY | 2023-11-03 01:28 | XMS_ITS | Encounter Summary ---
[place] [address] Care Team Providers Care Cotton Classer Aide Name Role Phone Ángel Bingham MD Primary Care Provider [phone] Encounter Details Date Type Department Care Team (Late st Contact Info) Description 09/15/2014 Orders Only Cardiology at [address] [address] Social History Tobacco Use Types Packs/Day Years [...] AM EDT Hospital Encounter Non[place] [address] Arrived documented as of this encounter Procedures Procedure Name Priority Date/Time Associated Diagnosis Comments CARDIAC DEVICE CHECK - REMOTE PATIENT INITIATED Routine 09/15/2014 5:17 AM EDT documented in this encounter Results * Cardiac device check - Remote Patient Initiated (09/15/2014 5:17 AM EDT) Date Time Interrogation Session [id number] IDCO Type Interrogation Session Remote Patient Initiated IDCO Clinic Name [facility] [place] [facility] IDCO Battery Date Time of Measurements [id number] IDCO Battery Status Beginning of Service IDCO Battery Remaining Longevity 126 mo IDCO Battery Remaining Percentage 100 % IDCO Capacitor Last Charge Date Time IDCO Capacitor Charge Time 9.9 s IDCO Capacitor Charge Type Reformation IDCO Episode Identifier APM-8 IDCO Episode Date Time [id number] IDCO Episode Type Category Periodic EGM IDCO Episode Vendor Type Category APMRT IDCO Episode Detection And Therapy Details Presenting EGM IDCO Episode Identifier [id number] IDCO Episode Date Time [id number] IDCO Episode Type Category Other IDCO Episode Vendor Type Category XANDER IDCO Episode Detection Interval Ventricular 1,053 ms IDCO Episode Duration 63 s IDCO Episode Detection And Therapy Details IDCO Episode Identifier IDCO Episode Date Time [id number] IDCO Episode Type Category Other IDCO Episode [...] Interval Ventricular 870 ms IDCO Episode Duration 52 s IDCO Episode Detection And Therapy Details IDCO Episode Identifier IDCO Episode Date Time IDCO Episode Type Category Other IDCO Episode Vendor Type Category XANDER IDCO Episode Detection Interval Ventricular 896 ms IDCO Episode Duration 52 s IDCO Episode Detection And Therapy Details IDCO Episode Identifier DE IDCO Episode Date Time IDCO Episode Type Category Other IDCO Episode Vendor Type Category XANDER IDCO Episode Detection Interval Ventricular 870 ms IDCO Episode Duration 52 s IDCO Episode Detection And Therapy Details [facility] IDCO Episode Identifier IDCO Episode Date Time IDCO Episode Type Category Other IDCO Episode Vendor Type Category XANDER IDCO Episode Detection Interval Ventricular 952 ms IDCO Episode Duration 61 s IDCO Episode Detection And Therapy Details [facility] IDCO Episode Identifier IDCO Episode Date Time IDCO Episode Type Category Other IDCO Episode Vendor Type Category XANDER IDCO Episode Detection Interval Ventricular 923 ms IDCO Episode Duration 58 s IDCO Episode Detection And Therapy Details [facility] IDCO Episode Identifier IDCO Episode Date Time IDCO Episode Type Category Other IDCO Episode Vendor Type Category XANDER IDCO Episode Detection Interval Ventricular 909 ms IDCO Episode Duration 51 s IDCO Episode Detection And Therapy Details DE IDCO Episode Identifier ATR-17 IDCO Episode Date Time IDCO Episode Type Category AT/AF IDCO Episode Vendor Type Category ATR IDCO Episode Detection Interval Atrial 293 ms IDCO Episode Duration 12 s IDCO Episode Detection And Therapy Details ATR IDCO Episode Identifier ATR-16 IDCO Episode Date Time IDCO Episode Type Category AT/AF IDCO Episode Vendor Type Category ATR IDCO Episode Detection Interval Atrial 583 ms IDCO Episode Duration 5 s IDCO Episode Detection And Therapy Details ATR IDCO Episode Identifier ATR-15 IDCO Episode Date Time IDCO Episode Type Category AT/AF IDCO Episode Vendor Type Category ATR IDCO Episode Detection Interval Atrial 239 ms IDCO Episode Duration 18 s IDCO [...] E162 IDCO Implantable Pulse Generator Serial Number [id number] IDCO Implantable Pulse Generator Concrete Mixing Plant Laborer [place] Scientific IDCO Implantable Pulse Generator Implant Date 20140110 IDCO Implantable Lead Model 4136 IDCO Implantable Lead Serial Number [id number] IDCO Implantable Lead Concrete Mixing Plant Laborer Guidant IDCO Implantable Lead Implant Date 20130421 IDCO Implantable Lead Polarity Type Bipolar Lead IDCO Implantable Lead Location Right Atrium IDCO Implantable Lead Model 0292 IDCO Implantable Lead Serial Number [id number] IDCO Implantable Lead Concrete Mixing Plant Laborer [place] Scientific IDCO Implantable Lead Implant Date IDCO [...] IDCO Lead Channel Pacing Threshold Measurement Method Wedding Transportation Driver Manual IDCO Lead Channel Pacing Threshold [...] IDCO Lead Channel Pacing Threshold Measurement Method Wedding Transportation Driver Manual IDCO Lead Channel Pacing Threshold [...] IDCO Anatomical Region Laterality Modality Other 09/15/2014 5:17 AM EDT Physician Cardiology IMPLANTABLE CARD IAC DEVICE documented in this encounter Visit Diagnoses Not on filedocumented in this encounter Care Teams Cotton Classer Aide Relationship Specialty Start Date End Date Ángel Bingham MD [facility] [address] [place] [address] PCP - General 01/31/14 09/01/16 documented as of this encounter
--- OUTSIDE RECORDS SUMMARY | 2023-11-03 01:28 | XMS_ITS | Encounter Summary ---
Author Organization [facility] Address [facility] [place] [address] Care Team Providers Care Plant General Manager Name Role Phone Ángel Bingham MD Primary Care Provider [phone] Reason for Visit * Reason Onset Date Comments Other 03/08/2014 ? stop plavix Encounter Details Date Type Department Care Team (Late st Contact Info) Description 03/08/2014 Telephone Cardiology at [address] [phone] Kit Self MD [facility] [place] [address] Other (? stop plavix) Social History Tobacco Use Types Packs/Day Years Used Date Smoking Tobacco: Former Cigarettes 0.8 25 0 12/19/1988 - 12/19/2013 Smokeless Tobacco: Never Alcohol Use Standard Drinks/Week Comments No 0 (1 standard drink = 0.6 oz pur e alcohol) Sex and Gender Information Value Date Recorded Sex Assigned at Not on file Gender Identity Not on file Sexual Orientation Not on file documented as of this encounter Miscellaneous Notes * Telephone Encounter - Daphney Fisher - 03/09/2014 9:30 AM EST I spoke to Ashley who will obtain details for the upcoming surgery and fax us a request to stop medication next week. We should receive this Thursday or Thursday. * Telephone Encounter - Daphney Fisher - 03/08/2014 4:36 PM EST Per patient call having Bilateral L4-L5 MBB done at [facility]. There is a question about Stopping medication prior to this procedure. I called the number provided by the patient and had to leave a message as they close at 4:00. I will call back tomorrow. [phone] Thank you, Daphney documented in this encounter Plan of Treatment Upcoming Encounters Date Type Department Care Team (Late st Contact Info) Description 12/18/2023 10:00 AM EDT Hospital Encounter Non-[place] [phone] Arrived documented as of this encounter Visit Diagnoses Not on filedocumented in this encounter Care Teams Plant General Manager Relationship Specialty Start Date End Date Ángel Bingham MD [facility] [address] [facility] [place] [address] PCP - General 01/31/14 09/01/16 documented as of this encounter
--- OUTSIDE RECORDS SUMMARY | 2023-11-03 01:28 | XMS_ITS | Encounter Summary ---
Author Organization [facility] Address [facility] [place] [address] Care Team Providers Care Scrap Shear Operator Name Role Phone Ángel Bingham MD Primary Care Provider Encounter Details Date Type Department Care Team (Late st Contact Info) Description 04/10/2014 Orders Only Cardiology at [address] [phone] Edy Torres PA [facility] [place] [address] Pacemaker lead failure, initial encounter Social History Tobacco Use Types Packs/Day [...] AM EDT Hospital Encounter Non-Invasive [place] [address] Arrived documented as of this encounter Results * XR chest routine PA & lateral (04/10/2014 10:22 AM EST) Anatomical Region Laterality Modality Chest N/A Radiographic [place] ging 04/10/2014 10:2 2 AM EST Impressions 04/10/2014 10:30 AM EST IMPRESSION: Right atrial lead tip has dislodged. No other interval findings. Narrative 04/10/2014 10:30 AM EST EXAMINATION: CHEST ROUTINE 2 VIEWS CLINICAL HISTORY: malfunctioning atrial pacemaker lead 3 months post implant TECHNIQUE: PA and lateral views of the chest. COMPARISON: 01/11/2014. FINDINGS: Left anterior chest wall pulse generator, as before, with 2 leads, one in the right ventricle in unchanged position, but the right atrial lead tip now projects caudally. The lungs appear clear. The cardiomediastinal silhouette, dhara, pulmonary vessels, and pleura are within normal limits. No significant osseous findings. Procedure Note Xiomara Cook MD - 04/10/2014 EXAMINATION: CHEST ROUTINE 2 VIEWS CLINICAL HISTORY: malfunctioning atrial pacemaker lead 3 months postimplant TECHNIQUE: PA and lateral views of the chest. COMPARISON: 01/11/2014. FINDINGS: Left anterior chest wall pulse generator, as before, with 2leads, one in the right ventricle in unchanged position, but the right atrial leadtip now projects caudally. The lungs appear clear. The cardiomediastinalsilhouette, dhara, pulmonary vessels, and pleura are within normal limits. Nosignificant osseous findings. IMPRESSION IMPRESSION: Right atrial lead tip has dislodged. No other intervalfindings. Lars Hernandez DO [facility] [place] ORDERABLES documented in this encounter Visit Diagnoses Diagnosis Pacemaker lead failure, initial encounter Pacemaker lead failure, initial encounter documented in this encounter Care Teams Scrap Shear Operator Relationship Specialty Start Date End Date Ángel Bingham MD [facility] [address] [place] [address] PCP - General 01/31/14 09/01/16 documented as of this encounter
--- OUTSIDE RECORDS SUMMARY | 2023-11-03 01:28 | XMS_ITS | Encounter Summary ---
Author Organization [facility] Address [facility] [place] [address] Care Team Providers Care Clean Up Helper Banquet Name Role Phone Ángel Bingham MD Primary Care Provider [phone] Encounter Details Date Type Department Care Team (Latest Contact Info) Description 04/17/2014 8:22 AM EST - 04/17/2014 11:59 PM [facility] Hospital [place] [phone] José Manuel Fabian MD [facility] [place] [address] Discharge Disposition: Home Social History Tobacco Use [...] 5 minutes as needed. Reported on 09/30/2016 oxyCODONE-acetaminophe n (PERCOCET) 5-325 mg Tablet Take 1 tablet by mouth every 4 hours as needed for Pain. 12 tablet 0 04/18/2014 07/18/2014 chlorhexidine (HIBICLENS) 4 % Liquid Apply topically daily as needed. Shower/bathe from head to toe with Chlorhexidine the night before the procedure and the morning of the procedure. . 120 mL 0 04/12/2014 04/18/2014 exenatide (BYETTA) 10 mcg/dose(250 mcg/mL) 2.4 mL Pen Injector Inject 10 mcg subcutaneously 2 times daily (with meals). 07/11/2015 betaxolol (KERLONE) 10 mg Tablet Take 1 tablet by mouth daily. 30 tablet 11 02/03/2014 03/03/2015 oxyCODONE-acetaminophe n (PERCOCET) 5-325 mg Tablet Take 1 tablet by mouth every 4 hours as needed for Pain. Do not take with Xanax or ambien. Do not take with alcohol. Do not drive while you are taking oxycodone 15 tablet 0 01/11/2014 04/18/2014 lisinopril (PRINIVIL;ZESTRIL) 20 mg Tablet Take 1 tablet by mouth daily. 30 tablet 12 01/09/2014 03/18/2022 magnesium oxide (MAG-OX) 400 mg Tablet Take 1 tablet by mouth daily. 30 tablet 12 01/09/2014 07/11/2015 aspirin 81 mg EC tabletIndications:ASCV D (arteriosclerotic cardiovascular disease) Take 1 tablet by mouth daily. 90 tablet 3 09/23/2013 09/30/2016 rosuvastatin (CRESTOR) 20 mg tablet Take 10 mg by mouth daily. 07/11/2015 clopidogrel (PLAVIX) 75 mg tablet Take 1 tablet by mouth daily. 30 tablet 11 05/14/2013 07/11/2015 pantoprazole (PROTONIX) 40 mg tablet Take 1 tablet by mouth 2 times daily. 90 tablet 6 05/14/2013 01/27/2017 [place]-3 Fatty Acids (FISH OIL) 500 mg Cap Take by mouth daily. 01/14/2016 lamotrigine (LAMICTAL) 100 mg tablet Take 200 mg by mouth daily. 09/01/2018 alprazolam (XANAX XR) 3 mg 24 hr tablet Take 3 mg by mouth nightly. 09/18/2020 [facility] cmb #1-[id number] (PROBIOTIC & ACIDOPHILUS) 300-250 million cell-mg Cap Take by mouth daily. 07/11/2015 hydrOXYzine (ATARAX) 25 mg tablet Take 25 mg by mouth 3 times daily as needed. Reported on 09/30/2016 01/27/2017 glipizide (GLUCOTROL) 5 mg 24 hr tablet Take 10 mg by mouth daily. 01/27/2017 documented as of this encounter Plan of Treatment Upcoming Encounters Date Type Department Care Team (Late st Contact Info) Description 12/18/2023 10:00 AM EDT Hospital Encounter Non-[place]vasive [place] [address] Arrived documented as of this encounter Procedures Procedure Name Priority Date/Time Associated Diagnosis Comments BMP W/FASTING GLUCOSE STAT 04/17/2014 8:29 AM EST HEMOGRAM STAT 04/17/2014 8:29 AM EST DIFFERENTIAL, AUTOMATED STAT 04/17/2014 8:29 AM EST PROTHROMBIN TIME STAT 04/17/2014 8:29 AM EST CBC (WITH DIFF) STAT 04/17/2014 8:29 AM EST documented in this encounter Results * (ABNORMAL) Differential, Automated (04/17/2014 8:29 AM EST) Neutrophils % 47.0 % CERNER MILLENNIUM Neutr Abs (ANC) 3.30 1.50 - 6.30 x10(3)/mc L CERNER MILLENNIUM Lymphocytes % 38.1 % CERNER MILLENNIUM Lymphocytes Abs 2.7 1.0 - 3.6 x10(3)/mc L CERNER MILLENNIUM Monocytes % 5.8 % CERNER MILLENNIUM Monocyte Abs 0.4 0.2 - 1.0 x10(3)/mc L CERNER MILLENNIUM Eosinophils % 8.3 % CERNER MILLENNIUM Eosinophils Abs 0.6(H) 0.0 - 0.5 x10(3)/mc L CERNER MILLENNIUM Basophils % 0.7 % CERNER MILLENNIUM Basophils Abs 0.0 0.0 - 0.2 x10(3)/mc L CERNER MILLENNIUM Immature Gran % 0.10 % CERN ER MILLENNIUM Comment: Immature granulocytes(IG's)percentage and absolute count will include metamyelocytes, myelocytes, and promyelocytes. Blood smears from CBCs yielding IG's will be scanned manually for concordance. If this scan disagrees with the automated IG or if promyelocytes are noted, a manual differential will be performed. Elyssa Gran Abs 0.01 0.00 - 0.05 x10(3)/mc L CERNER MILLENNIUM Blood specimen (specimen) 04/17/2014 8:29 AM EST 04/17/2014 8:48 AM EST Narrative Resulting Agency Comment Spec In Lab José Manuel Fabian MD HEMATOLOGY ORDERABLE S CERNER MILLENNIUM * Hemogram (04/17/2014 8:29 AM EST) WBC 7.0 4.0 - 10.0 x10(3)/mcL CERNER MILLENNIUM RBC 4.95 4.63 - 6.08 x10(6)/mcL CERNER MILLENNIUM Hemoglobin 13.9 13.7 - 17.5 gm/dL CERNER MILLENNIUM Hematocrit 41.1 40.0 - 51.0 % CERNER MILLENNIUM MCV 83.0 79.0 - 92.0 fL CERNER MILLENNIUM MCH 28.1 25.6 - 32.2 pg CERNER MILLENNIUM MCHC 33.8 32.0 - 36.5 gm/dL CERNER MILLENNIUM Platelets 189 145 - 370 x10(3)/mcL CERNER MILLENNIUM RDWSD 40.9 35.0 - 46.0 fL CERNER MILLENNIUM RDWCV 13.7 10.9 - 14.4 % CERNER MILLENNIUM MPV 9.5 9.0 - 12.0 fL CERNER MILLENNIUM Blood specimen (specimen) 04/17/2014 8:29 AM EST 04/17/2014 8:48 AM EST Narrative Resulting Agency Comment Spec In Lab José Manuel Fabian MD HEMATOLOGY ORDERABLE S MONICA PERALTA * (ABNORMAL) BMP w/fasting Glucose (04/17/2014 8:29 AM EST) Glucose Fasting 183(H) 65 - 99 mg/dL CERNER MILLENNIUM Comment: ?Fasting* Glucose Interpretive Criteria Normal ?65-99 mg/dL Impaired Fasting glucose ?100-125 mg/dL Consistent with Diabetes Mellitus ? >or= 126 mg/dL *Fasting is defined as no caloric intake for at least 8 hours In the absence of unequivocal hyperglycemia a plasma glucose value of >or= 126 mg/dL should be repeated on a subsequent day. Diagnosis and Classification of Diabetes Mellitus, Position Statement from the [employer]. ??Diabetes Care, Volume 33, Supplement 1, Apr 2009 BUN 19 10 - 20 mg/dL CERNER MILLENNIUM Creatinine 1.02 0.80 - 1.50 mg/dL CERNER MILLENNIUM Comment: Please note that the pediatric reference intervals supplied above were not validated at [facility]. Results from pediatric patients should be interpreted in conjunction to the patient's age, height and muscle mass. Sodium 140 135 - 145 mmol/L CERNER MILLENNIUM Potassium 4.6 3.5 - 5.0 mmol/L CERNER MILLENNIUM Comment: Please note: ??Patients with WBC >100,000 may have falsely elevated Potassium levels. ??For accurate Potassium quantification in these patients send serum separator tube (gold top) for subsequent determinations. ??Contact the Clinical Chemistry Laboratory if there are any questions. Chloride 99 98 - 107 mmol/L CERNER MILLENNIUM CO2 24 22 - 31 mmol/L CERNER MILLENNIUM Anion Gap 17(H) 5 - 15 mmol/L CERNER MILLENNIUM Calcium 9.6 8.5 - 10.5 mg/dL CERNER MILLENNIUM Estimated GFR >60 >=60 MONICA MILLENNIUM Comment: This estimated GFR (eGFR) value was calculated using the MDRD equation which has been validated on patients between the ages of 18 and 70. The MDRD should not be used to assess kidney function in patients < 18 years of age or in patients with extremes of body mass, or in patients with acute kidney failure. This value should be multiplied by 1.2 for patients. For further information please copy and paste the following links into your internet browser. [email or web address] [email or web address] Blood specimen (specimen) 04/17/2014 8:29 AM EST 04/17/2014 8:48 AM EST Narrative Resulting Agency Comment Spec In Lab José Manuel Fabian MD CHEMISTRY ORDERABLES Performing Organization Address City/[facility] Co de Phone Number MONICA PERALTA * Prothrombin Time (04/17/2014 8:29 AM EST) PT 14.4 12.5 - 15.5 sec MONICA MILLENNIUM Comment: [facility] Transfusion Committee Guidelines: INR less than 2.0, PTT less than OR equal to 43.5 seconds, or Fibrinogen greater than or equal to 100 mg/dl indicate adequate procoagulant activity for hemostasis in patients without underlying bleeding disorders. INR 1.0 0.9 - 1.1 MONICA MILTONSEPIDEHIUM Blood specimen (specimen) 04/17/2014 8:29 AM EST 04/17/2014 8:48 AM EST Narrative Resulting Agency Comment Spec In Lab José Manuel Fabian MD HEMATOLOGY ORDERABLE S Performing Organization Address City/State/[facility] Co de Phone Number MONICA PERALTA documented in this encounter Visit Diagnoses Not on filedocumented in this encounter Care Teams Clean Up Helper Banquet Relationship Specialty Start Date End Date Ángel Bingham MD [facility] [address] [place] [address] PCP - General 01/31/14 09/01/16 documented as of this encounter
--- OUTSIDE RECORDS SUMMARY | 2023-11-03 01:28 | XMS_ITS | Encounter Summary ---
Author Organization [facility] [place] [address] Care Team Providers Care Pipe Bowls Paint Trimmer Name Role Phone Ángel Bingham MD Primary Care Provider [phone] Reason for Visit * Reason Onset Date Comments Other 07/06/2014 MAP-Possible ass istance ? Encounter Details Date Type Department Care Team (Late Contact Info) Description 07/06/2014 Telephone [place] [phone] Rafaela Randhawa Other (MAP-Possible assistance ?) Social History Tobacco Use Types Packs/Day Years [...] encounter Miscellaneous Notes * Telephone Encounter - Rafaela Randhawa - 07/06/2014 4:41 PM EDT MAP-Possible assistance ? Pt called wondering if we had an assistance dept for medical bills. Gave pt phone number for Pt Financial Information Coord. Pt stated purchased Medicare and Part D plan.[id number] documented in this encounter Plan of Treatment Upcoming Encounters Date Type Department Care Team (Late Contact Info) Description 12/18/2023 10:00 AM EDT Hospital Encounter Non-[place] [address] Arrived documented as of this encounter Visit Diagnoses Not on filedocumented in this encounter Care Teams Pipe Bowls Paint Trimmer Relationship Specialty Start Date End Date Ángel Bingham MD [facility] [address] [place] [address] PCP - General 01/31/14 09/01/16 documented as of this encounter
--- OUTSIDE RECORDS SUMMARY | 2023-11-03 01:28 | XMS_ITS | Encounter Summary ---
Author Organization [facility] Address [facility] [place] [address] Care Team Providers Care Disability Counselor Name Role Phone Ángel Bingham MD Primary Care Provider [phone] Encounter Details Date Type Department Care Team (Latest Contact Info) Description 04/10/2014 10:17 AM EST - 04/10/2014 11:59 PM [facility] Hospital Encounter XRay at [address] [place] [address] Pacemaker lead failure, initial encounter Social History [...] 5 minutes as needed. Reported on 09/30/2016 exenatide (BYETTA) 10 mcg/dose(250 mcg/mL) 2.4 mL [...] times daily. 90 tablet 6 05/14/2013 01/27/2017 [place]-3 Fatty Acids (FISH OIL) 500 mg Cap Take by mouth daily. 01/14/2016 lamotrigine (LAMICTAL) 100 mg tablet Take 200 mg by mouth daily. 09/01/2018 alprazolam (XANAX XR) 3 mg 24 hr tablet Take 3 mg by mouth nightly. 09/18/2020 [facility] cmb #8-[id number] (PROBIOTIC & ACIDOPHILUS) 300-250 million cell-mg Cap [...] AM EDT Hospital Encounter Non[place] [address] Arrived documented as of this encounter Procedures Procedure Name Priority Date/Time Associated Diagnosis Comments XR CHEST PA AND LATERAL Routine 04/10/2014 10:22 AM EST Pacemaker lead failure, initial encounter documented in this encounter Results * XR chest routine PA & lateral (04/10/2014 10:22 AM EST) Anatomical Region Laterality Modality Chest N/A Radiographic [place] ging 04/10/2014 10:2 2 AM EST Impressions [...] dislodged. No other intervalfindings. Lars Hernandez DO IMG DX ORDERABLES documented in this encounter Visit Diagnoses Diagnosis Pacemaker lead failure, initial encounter documented in this encounter Care Teams Disability Counselor Relationship Specialty Start Date End Date Ángel Bingham MD [facility] [address] [place] [address] PCP - General 01/31/14 09/01/16 documented as of this encounter
--- OUTSIDE RECORDS SUMMARY | 2023-11-03 01:28 | XMS_ITS | Encounter Summary ---
[facility] [place] [address] Care Team Providers Care [employer] Mk1 Operator Name Role Phone Ángel Bingham MD Primary Care Provider [phone] Encounter Details Date Type Department Care Team (Latest Contact Info) Description 04/17/2014 1:14 PM EST - 04/18/2014 12:19 PM EST Hospital Encounter [place] [address] José Manuel Fabian MD [facility] [place] [address] Myrna Shepard MD [facility] [place] [address] Ventricular tachycardia Discharge Disposition: Home Social History [...] Sign Reading Time Taken Comments Blood Pressure 115/66 04/18/2014 9:57 AM EST Pulse 58 04/18/2014 9:57 AM EST Temperature 36.6 ??C (97.9 ??F) 04/18/2014 9:57 AM ES T Respiratory Rate 15 04/18/2014 9:57 AM EST Oxygen Saturation 98% 04/18/2014 9:57 AM EST Inhaled Oxygen Concentration - - Weight 93.9 kg (207 lb) 04/17/2014 9:59 AM EST Height 185.4 cm (6' 1) 04/17/2014 9:59 AM EST Body Mass Index 27.31 04/17/2014 9:59 AM EST documented in this encounter Discharge Summaries * Edy Torres PA - 04/18/2014 9:43 AM EST Discharge Summary Patient Name: Marquez Hendrix Patient Age: 63 y.o. Language: Colombian Race: White Ethnicity: Not nor Admit date: 04/17/2014 Discharge date and time: 04/18/2014929 Attending Physician: Myrna Shepard MD Discharge Physician: Jake Shepard MD Follow-up Recommendations for Providers: S/p atrial lead replacement Scheduled for 90 day post implant follow up Inpatient Provider Contact Information: Cardiac Electrophysiology [phone] Discharge Diagnoses (Hospital Problems) and Secondary Diagnoses (Chronic Problems): There are no hospital problems to display for this patient. Active Non-Hospital Problems Diagnosis ??? ASCVD (arteriosclerotic cardiovascular disease) ??? Atrial pacemaker lead displacement ??? ICD (implantable cardioverter-defibrillator), dual, in situ ??? Sustained VT (ventricular tachycardia) ??? Depression ??? Dermatitis ??? Irritant contact dermatitis ??? T2DM (type 2 diabetes mellitus) ??? Esophageal reflux ??? IBS (irritable bowel syndrome) ??? Diabetes mellitus ??? HTN (hypertension) ??? Elevated cholesterol Operations/Major Procedures: Operations: Procedure(s): ELECTROPHYSIOLOGY PROCEDURE 04/17/2014 Atrial lead replacement History of Presentation: 63yo man with hx MMVT s/p dual chamber BSI ICD implant 01/10/2014 now with evidence of atrial lead dislodgement on routine follow up. Hospital Course: Marquez Hendrix is a 63 y.o. male who was admitted via Same Day for atrial lead replacement after dislodgement. His atrial lead was replaced and additional slack was placed on the ventricular lead. Device function is nominal. He has moderate implant site pain. He is chronically on tramadol for back pain. Percocet has been effective for acute pain. There is no evidence of infection or hematoma. Vital Signs at Discharge: BP: 116/63 mmHg, Heart Rate: 55, Temp: 36.7 ??C (98.1 ??F), Resp: 16, BMI (Calculated): 27.4 Height: 185.4 cm (6' 1) (04/17/14 0959) Weight - Scale: 93.895 kg (207 lb) (04/17/1459) Functional and Cognitive Status: Fully functional; alert and oriented Admission Diagnoses: LEAD MALFUNCTION Discharge Diagnoses: Atrial lead replacement Admission Condition: good Indication for Admission: Atrial lead dislodgement Important Studies and Lab Data: Lab Results Component Value Date WBC 7.0 04/17/2014 HGB 13.9 04/17/2014 HCT 41.1 04/17/2014 PLATELET 189 04/17/2014 Recent Labs 04/17/14 0829 INR 1.0 Lab Results Component Value Date NA 140 04/17/2014 K 4.6 04/17/2014 CL 99 04/17/2014 BUN 19 04/17/2014 CREATININE 1.02 04/17/2014 MAGNESIUM 0.70 01/11/2014 Treatments: Atrial lead replacement Discharge Exam: Skin: Golden, warm and dry HEENT: PERRLA, EOMI, no JVD Chest: left prepectoral implant site without hematoma or ecchymosis; dressing in place Cardiac: Regular rate and rhythm; heart rate 70; no murmur, rubs or gallop Respiratory: Lungs clear to auscultation; no adventitious sounds ABD: soft, non-tender, non-distended Peripheral vascular: no edema, cyanosis Neuro: A & O X 3; cranial nerves grossly intact; CARSON Pertinent Radiographic/Diagnostic Results: CXR: left sided dual lead ICD; good lead position; no pneumothorax Device Data: New Atrial electrode: Guidant Dextrus Model# 4126-53 cm Serial# [id number] ?? Bipolar, steroid-tipped, active-fixation IS-1 lead ?? Access: Axillary vein ?? Location Right atrial appendage Old Ventricular electrode: [place] [employer] Brooten Model# 0292 Serial# [id number] ?? Bipolar, steroid-tipped, active-fixation DF-4 lead ?? Access: Axillary vein ?? Location: Right ventricular apex Old Atrial electrode: Guidant Dextrus Model# 4136 Serial# [id number] ?? Bipolar, steroid-tipped, active-fixation IS-1 lead ?? Access: Axillary vein ?? Location Removed 04/17/2014 ?? Implanted: 01/10/2014 Pulse generator: Liquid5 Incepta Model# E162 Serial# [id number] ?? DDDR ICD ?? Location: Subcutaneous DDDR RhythmIQ 55/130/130 VF 220 ATP 31j, 41j, 41j x6 VT 180 31j, 41j, 41j x4 VT-1 155 Ramp/scan 0.9j, 11j, 41j x3 BV: ANN 9 yrs P wave: 4.3mV R wave: 11.8mV Atrial impedance: 595 ohms Ventricular impedance: 556 ohms Shock impedance: 76 ohms Atrial threshold: 0.4V @ 0.5ms Ventricular threshold: 0.7V @ 0.5ms Discharge Conditions/Prognosis: good Discharge to: home Updated Allergies/ADRs: Allergies Allergen Reactions ??? Tape 1X5yd [Adhesive Tape] Rash tegaderm ok Use paper tape Immunizations Given this Hospitalization: There is no immunization history on file for this patient. Discharge Medications: Your Medications Continued medications with new dosing Dose Details oxyCODONE-acetaminophen 5-325 mg Tab Commonly known as: PERCOCET Take 1 tablet by mouth every 4 hours as needed for Pain. What changed: additional instructions 1 tablet Quantity: 12 tablet Refills: 0 Continued medications, unchanged Dose Details ALPRAZolam 3 mg Tablet sr Commonly known as: XANAX XR Take 3 mg by mouth every morning. 3 mg Refills: 0 AMBIEN 10 mg Tab Take 10 mg by mouth nightly as needed. Generic drug: zolpidem 10 mg Refills: 0 aspirin 81 mg Tbec Take 1 tablet by mouth daily. 81 mg Quantity: 90 tablet Refills: 3 betaxolol 10 mg Tab Commonly known as: KERLONE Take 1 tablet by mouth daily. 10 mg Quantity: 30 tablet Refills: 11 clopidogrel 75 mg Tab Commonly known as: PLAVIX Take 1 tablet by mouth daily. 75 mg Quantity: 30 tablet Refills: 11 exenatide 10 mcg/dose(250 mcg/mL) 2.4 mL Pnij Commonly known as: BYETTA Inject 10 mcg subcutaneously 2 times daily (with meals). 10 mcg Refills: 0 FISH OIL 500 mg Cap Take by mouth daily. Generic drug: [place]-3 Fatty Acids Refills: 0 glipiZIDE 5 mg Tr24 Commonly known as: GLUCOTROL Take 5 mg by mouth daily. 5 mg Refills: 0 hydrOXYzine 25 mg Tab Commonly known as: ATARAX Take 25 mg by mouth 3 times daily as needed. 25 mg Refills: 0 lamoTRIgine 100 mg Tab Commonly known as: LaMICtal Take 100 mg by mouth daily. 100 mg Refills: 0 LANCETS MISC by Misc.(Non-Drug; Combo Route) route. Refills: 0 lisinopril 20 mg Tab Commonly known as: PRINIVIL;ZESTRIL Take 1 tablet by mouth daily. 20 mg Quantity: 30 tablet Refills: 12 magnesium oxide 400 mg Tab Commonly known as: MAG-OX Take 1 tablet by mouth daily. 400 mg Quantity: 30 tablet Refills: 12 metFORMIN 1,000 mg Tab Commonly known as: GLUCOPHAGE Take 1,000 mg by mouth 2 times daily (with meals). 1000 mg Refills: 0 multivitamin Cap Take 1 capsule by mouth daily. 1 capsule Refills: 0 nitroGLYcerin 0.4 mg Subl Commonly known as: NITROSTAT Place 0.4 mg under the tongue every 5 minutes as needed. 0.4 mg Refills: 0 pantoprazole 40 mg Tbec Commonly known as: PROTONIX Take 1 tablet by mouth 2 times daily. 40 mg Quantity: 90 tablet Refills: 6 PROBIOTIC & ACIDOPHILUS 300-250 million cell-mg Cap Take by mouth daily. Generic drug: lactobac cmb #[id number] Refills: 0 rosuvastatin 20 mg Tab Commonly known as: CRESTOR Take 20 mg by mouth daily. 20 mg Refills: 0 traMADol 50 mg Tab Commonly known as: ULTRAM Take 50 mg by mouth every 6 hours as needed for Pain. 50 mg Refills: 0 STOPPED Medications chlorhexidine 4 % Liqd Commonly known as: DAVID Smoking Status at Discharge: History Smoking status ??? Former Smoker -- 0.75 packs/day for 25 years ??? Types: Cigarettes ??? Quit date: 12/19/2013 Smokeless tobacco ??? Never Used Comment: using e cigarettes Instructions Given to Patient at Discharge: Patient Instructions Final recommendations: 1. Standard post implant discharge instructions (see below): 2. Resume medications as listed. 3. You will be called to schedule a 91 day new device check at [facility]. 4. Remote device follow up per pacemaker clinic. FOLLOW UP: Call your clinician if you develop chest pain, shortness of breath, bleeding, leg pain/leg swellingor fever/temperature >100 degrees F WOUND CARE FOR PATIENTS WITH PACEMAKERS AND ICD DEVICES Your wound will usually heal in 7-10 days. Your wound may be tender, it may appear slightly red andbumpy and there may be dry, crusty scabbing. These are all normal. Follow the instructions that follow to care for your wound. ??? Either you or someone with you needs to look at the wound everyday. ??? Inspect the wound for signs of infection which can be drainage, swelling, warmth or increased pain or redness. ??? Notify your doctor if your temperature is 100 degrees F or higher. ??? If you are concerned about an infection in your wound or if the edges of the wound separate, call your doctor. ??? A needle should not be put into the wound area because this can damage the pacemaker lead. You may need to remind your health-care provider of this concern. ??? Dermaflex dressing - this should remain on the site for 7 days and then can be removed. If there is fluid accumulation under the dressing, it can be removed sooner. It is normal for the tissue under the site to appear 'pike'. ??? The sutures will dissolve on their own. ??? Do not scratch or rub the wound. ??? Do not apply any creams, lotions or ointments on the wound until it is completely healed. ??? You may cover the wound with gauze if it rubs on clothing and causes you discomfort. ??? Do not shower for 48 hours after implant. ??? While in the shower, turn your back to the water nozzle so you avoid direct water pressure on the wound. You should continue this for 7 - 10 days. ??? You may take a tub bath, but keep the wound above the water level in the tub until the scab is gone. This usually takes 7 - 10 days. Avoid swimming until the same occurs. ??? After 48 hours, you may wash the wound gently with soap and water. ARM MOVEMENT RESTRICTIONS FOR PATIENTS WITH PACEMAKERS AND ICD DEVICES ??? Do not raise your elbow on the operated side above the shoulder for 6 weeks. ??? You may use your arm on the operated side, but do not make extreme movements (such as stretching or reaching for a heavy object) for 6 weeks. ??? Do not lift greater than 7 pounds with the arm on the operated side for 6 weeks. 7 pounds is equal to a gallon of milk. ??? General Instructions None Future Appointments Provider Department Dept Phone 07/18/2014 10:00 AM Raul Lopes RN Cardiology [phone] 07/18/2014 10:40 AM Kit Self MD Cardiology [phone] Joint Appt Cardiology Intake, Nurse [facility] [phone] Discharge References/Attachments None documented in this encounter Discharge Instructions * Patient Instructions* Edy Torres PA - 04/18/2014 7:57 AM EST Final recommendations: 1. Standard post implant discharge instructions (see below): 2. Resume medications as listed. 3. You will be called to schedule a 91 day new device check at [facility]. 4. Remote device follow up per pacemaker clinic. FOLLOW UP: Call your clinician if you develop chest pain, shortness of breath, bleeding, leg pain/leg swellingor fever/temperature >100 degrees F WOUND CARE FOR PATIENTS WITH PACEMAKERS AND ICD DEVICES Your wound will usually heal in 7-10 days. Your wound may be tender, it may appear slightly red andbumpy and there may be dry, crusty scabbing. These are all normal. Follow the instructions that follow to care for your wound. ??? Either you or someone with you needs to look at the wound everyday. ??? Inspect the wound for signs of infection which can be drainage, swelling, warmth or increased pain or redness. ??? Notify your doctor if your temperature is 100 degrees F or higher. ??? If you are concerned about an infection in your wound or if the edges of the wound separate, call your doctor. ??? A needle should not be put into the wound area because this can damage the pacemaker lead. You may need to remind your health-care provider of this concern. ??? Dermaflex dressing - this should remain on the site for 7 days and then can be removed. If there is fluid accumulation under the dressing, it can be removed sooner. It is normal for the tissue under the site to appear 'pike'. ??? The sutures will dissolve on their own. ??? Do not scratch or rub the wound. ??? Do not apply any creams, lotions or ointments on the wound until it is completely healed. ??? You may cover the wound with gauze if it rubs on clothing and causes you discomfort. ??? Do not shower for 48 hours after implant. ??? While in the shower, turn your back to the water nozzle so you avoid direct water pressure on the wound. You should continue this for 7 - 10 days. ??? You may take a tub bath, but keep the wound above the water level in the tub until the scab is gone. This usually takes 7 - 10 days. Avoid swimming until the same occurs. ??? After 48 hours, you may wash the wound gently with soap and water. ARM MOVEMENT RESTRICTIONS FOR PATIENTS WITH PACEMAKERS AND ICD DEVICES ??? Do not raise your elbow on the operated side above the shoulder for 6 weeks. ??? You may use your arm on the operated side, but do not make extreme movements (such as stretching or reaching for a heavy object) for 6 weeks. ??? Do not lift greater than 7 pounds with the arm on the operated side for 6 weeks. 7 pounds is equal to a gallon of milk. ??? documented in this encounter Medications at Time [...] for Pain. 12 tablet 0 04/18/2014 07/18/2014 exenatide (BYETTA) 10 mcg/dose(250 mcg/mL) 2.4 mL Pen Injector Inject 10 mcg subcutaneously 2 times daily (with meals). 07/11/2015 betaxolol (KERLONE) 10 mg Tablet Take 1 tablet by mouth daily. 30 tablet 11 02/03/2014 03/03/2015 lisinopril (PRINIVIL;ZESTRIL) 20 mg Tablet Take 1 [...] times daily. 90 tablet 6 05/14/2013 01/27/2017 [place]-3 Fatty Acids (FISH OIL) 500 mg Cap Take by mouth daily. 01/14/2016 lamotrigine (LAMICTAL) 100 mg tablet Take 200 mg by mouth daily. 09/01/2018 alprazolam (XANAX XR) 3 mg 24 hr tablet Take 3 mg by mouth nightly. 09/18/2020 lactobac cmb #[id number] (PROBIOTIC & ACIDOPHILUS) 300-250 million cell-mg Cap Take by mouth daily. 07/11/2015 hydrOXYzine (ATARAX) 25 mg tablet Take 25 mg by mouth 3 times daily as needed. Reported on 09/30/2016 01/27/2017 glipizide (GLUCOTROL) 5 mg 24 hr tablet Take 10 mg by mouth daily. 01/27/2017 documented as of this encounter Progress Notes * Nora Sidhu RN - 04/18/2014 8:08 AM EST Office of Care Management Clinical Leather [employer]itcher Patient Name: Marquez Hendrix : 1950, 63 yrs Admission Date: 04/17/2014 1:14 PM Attending: Myrna Shepard MD Order to Admit: Record reviewed and patient discussed with multidisciplinary team. Insurance: [employer]: Pt admitted for atrial lead replacement for dislodgement. S/p dual chamber pacer 12/2013 Pt on plavix on admission. Per Direct Care RN no issues with co pays for medications at this time. Plan: No discharge needs identified/ anticiapted at this time. CRC remains available as needed for coordination of care and discharge planning. * Edy Torres PA - 04/18/2014 8:06 AM EST Inpatient Cardiac Electrophysiology Discharge Day Note Patient Name: Marquez Hendrix Service: EP Responsible Attending: Myrna Shepard MD Reason for continued hospitalization: Atrial pacemaker lead replacement Active Problems: Patient Active Problem List Diagnosis Code ??? ASCVD (arteriosclerotic cardiovascular disease) 429.2, 440.9 ??? Diabetes mellitus 250.00 ??? HTN (hypertension) 401.9 ??? Elevated cholesterol 272.0 ??? IBS (irritable bowel syndrome) 564.1 ??? T2DM (type 2 diabetes mellitus) 250.00 ??? Esophageal reflux 530.81 ??? Irritant contact dermatitis 692.9 ??? Dermatitis 692.9 ??? Depression 311 ??? Sustained VT (ventricular tachycardia) 427.1 ??? Hypertension 401.9 ??? Hypomagnesemia 275.2 ??? ICD (implantable cardioverter-defibrillator), dual, in situ V45.02 ??? Atrial pacemaker lead displacement 996.01 Interval History: 63yo man with hx MMVT s/p dual chamber BSI ICD implant 01/10/2014 now with evidence of atrial lead dislodgement on routine follow up. Review of Systems Constitutional: Negative for fever, chills, diaphoresis and fatigue. Respiratory: Negative for cough, chest tightness, shortness of breath, wheezing and stridor. Cardiovascular: Negative for chest pain, palpitations and leg swelling. Genitourinary: Negative for dysuria, frequency and hematuria. Neurological: Negative for syncope, speech difficulty, light-headedness and headaches. Telemetry: HR: 70 A paced Meds: Scheduled Meds: ??? aspirin 81 mg Oral Daily ??? betaxolol 10 mg Oral Daily ??? clopidogrel 75 mg Oral Daily ??? glipiZIDE 5 mg Oral Daily ??? lamoTRIgine 100 mg Oral Daily ??? lisinopril 20 mg Oral Daily ??? magnesium oxide 400 mg Oral Daily ??? metFORMIN 1,000 mg Oral BID WC ??? pantoprazole 40 mg Oral BID ??? rosuvastatin 20 mg Oral QPM ??? insulin aspart 1-4 Units Subcutaneous Q4H JULIET Continuous Infusions: PRN Meds:nitroGLYcerin, oxyCODONE-acetaminophen, traMADol, zolpidem, acetaminophen, dextrose 50%, glucagon (human recombinant) Physical Exam: Vital Signs: Last value Range last 8 hrs Temperature Temp: 36.7 ??C (98.1 ??F) Temp: [36.7 ??C (98.1 ??F)-36.8 ??C (98.2 ??F)] Heart Rate Heart Rate: 55 Heart Rate: [55-56] Blood Pressure BP: 116/63 mmHg BP: (116-121)/(52-63) Respiratory Rate Resp: 16 Resp: [16] SpO2 SpO2: 96 % SpO2: [96 %-97 %] Physical Exam Constitutional: He is oriented to person, place, and time. No distress. Neck: No JVD present. Cardiovascular: Normal rate, regular rhythm, normal heart sounds and intact distal pulses. Pulmonary/Chest: Effort normal and breath sounds normal. Left prepectoral incision intact without pocket hematoma or ecchymosis; Aquacel AG dressing in place Abdominal: Soft. There is no tenderness. Musculoskeletal: Normal range of motion. He exhibits no edema. Neurological: He is alert and oriented to person, place, and time. Skin: Skin is warm and dry. He is not diaphoretic. Nursing note and vitals reviewed. Lab Comments: Lab Results Component Value Date WBC 7.0 04/17/2014 HGB 13.9 04/17/2014 HCT 41.1 04/17/2014 PLATELET 189 04/17/2014 Recent Labs 04/17/14 0829 INR 1.0 Lab Results Component Value Date NA 140 04/17/2014 K 4.6 04/17/2014 CL 99 04/17/2014 BUN 19 04/17/2014 CREATININE 1.02 04/17/2014 MAGNESIUM 0.70 01/11/2014 Pertinent Radiographic/Diagnostic Results: CXR: left sided dual lead ICD; good lead position; no pneumothorax Device Data: New Atrial electrode: Guidant Dextrus Model# 4126-53 cm Serial# [id number] ?? Bipolar, steroid-tipped, active-fixation IS-1 lead ?? Access: Axillary vein ?? Location Right atrial appendage Old Ventricular electrode: [place] [employer] Brooten Model# 0292 Serial# [id number] ?? Bipolar, steroid-tipped, active-fixation DF-4 lead ?? Access: Axillary vein ?? Location: Right ventricular apex Old Atrial electrode: Guidant Dextrus Model# 4136 Serial# [id number] ?? Bipolar, steroid-tipped, active-fixation IS-1 lead ?? Access: Axillary vein ?? Location Removed 04/17/2014 ?? Implanted: 01/10/2014 Pulse generator: [place] [employer] Incepta Model# E162 Serial# [id number] ?? DDDR ICD ?? Location: Subcutaneous DDDR RhythmIQ 55/130/130 VF 220 ATP 31j, 41j, 41j x6 VT 180 31j, 41j, 41j x4 VT-1 155 Ramp/scan 0.9j, 11j, 41j x3 BV: ANN 9 yrs P wave: 4.3mV R wave: 11.8mV Atrial impedance: 595 ohms Ventricular impedance: 556 ohms Shock impedance: 76 ohms Atrial threshold: 0.4V @ 0.5ms Ventricular threshold: 0.7V @ 0.5ms Assessment: Marquez Hendrix is a 63 y.o. male who was admitted via Same Day for atrial lead replacement after dislodgement. His atrial lead was replaced and additional slack was placed on the ventricular lead. Device function is nominal. He has moderate implant site pain. He is chronically on tramadol for back pain. Percocet has been effective for acute pain. There is no evidence of infection or hematoma. Plan: Stable for discharge to home later today. MAXIMO KEE 04/18/2014 * Myrna Shepard MD - 04/17/2014 10:32 AM EST See H+P documented in this encounter H&P Notes * Myrna Shepard MD - 04/17/2014 10:30 AM EST Patient Name: Marquez Hendrix Patient Age: 63 y.o. Birthdate: 1950 Admit date: 04/17/2014 Attending Physician: Myrna Shepard MD No change from 04/10/2014 note other than recent urinary frequency and mild dysuria. Will check UA prior to procedure. documented in this encounter Miscellaneous Notes * Plan of Care - Jace Howard RN - 04/18/2014 12:06 PM EST Problem: General Plan of Care Goal: Plan of Care Review Outcome: Outcome (s) achieved Date Met: 04/18/14 04/18/14 1202 Coping/Psychosocial Response Interventions Plan of Care Reviewed with patient Plan of Care Review Plan of Care Outcome Status outcome achieved Progress improving OUTCOME EVALUATION NOTE: OUTCOME SUMMARY: achieved PLAN MOVING FORWARD: Pt discharged to home with daughter, no CP, mild pain at incisional site, afebrile. INDIVIDUALIZED FALL PREVENTION: Assistance: independent Supervision: independent Surveillance: Call coleman within reach, pain reassessment, purposeful rounding, continuous O2 monitoring CPG GOAL OUTCOME EVALUATION: Pt discharged to home with daughter, pt verbalizes understanding regarding DC teaching specific forpacer placement and lead revision. Pt has no questions at time of discharge. Goal: Individualization and Mutuality Outcome: Outcome (s) achieved Date Met: 04/18/14 04/17/14 1353 04/17/14 1636 04/17/141934 Mutuality/Individual Preferences What anxieties, fears or concerns do you have about your health or care? some anxiety about coming into hospital -- -- What questions do you have about your health or care? none at this time-Dr. Shepard has answered them already -- -- What information would help us give you more personalized care? -- -- none Individualization Individualize the Plan of Care: -- Patient reminded to limit use of left arm -- Goal: Fall Prevention-Safe Patient Handling Outcome: Outcome (s) achieved Date Met: 04/18/14 04/17/14194404/18/14 0344 Safety Interventions Safety Precautions/Fall Reduction fall reduction program maintained;lighting adjusted for task/safety;nonskid shoes/slippers when out of bed -- Musculoskeletal Interventions Activity/Level of Assistance -- ambulated;independently Positioning HOB up 30 degrees -- Muscle Strengthening activity/mobility promoted;mobility in bed promoted;personal routines for BADL/IADL promoted -- Self-Care Promotion personal routines for BADL/IADL promoted;personal/BADL objects within reach -- [place] Fall Risk History of Falling 0 -- Secondary Diagnosis 15 -- Ambulatory Aids 0 -- Intravenous Therapy/Heparin/Saline Lock 20 -- Gait/Transferring 0 -- Mental Status 0 -- Score 35 -- OTHER [place] Fall Risk Medium (25-44) -- Goal: Infection Control Outcome: Outcome (s) achieved Date Met: 04/18/14 04/17/141944 Safety Interventions Isolation Precautions standard precautions maintained Infection Prevention blood glucose management;environmental surveillance;hydration promoted;nutrition promoted;promote handwashing;rest/sleep promoted Coping/Psychosocial Response Interventions Counseling goal setting facilitated;personal strengths integrated Goal: Discharge Needs Assessment Outcome: Outcome (s) achieved Date Met: 04/18/14 04/17/14 1353 04/17/14193504/18/14 0514 Discharge Needs Assessment Concerns to be Addressed no discharge needs identified -- -- Readmission Within the Last 30 Days no previous admission in last 30 days -- -- Equipment Needed After Discharge none -- -- Discharge Planning Comments Patient expects to go home tomorrw -- -- Living Environment Transportation Available -- -- car;family or friend will provide Self-Care Equipment Currently Used at Home -- none -- Current Health Anticipated Changes Related to Illness none -- -- * Plan of Care - Tara Thompson RN - 04/18/2014 5:16 AM EST Problem: General Plan of Care Goal: Plan of Care Review Outcome: Ongoing (Interventions Implemented as Appropriate) 04/17/14 1353 04/17/14 1945 Coping/Psychosocial Response Interventions Plan of Care Reviewed with -- patient Plan of Care Review Plan of Care Outcome Status ongoing (interventions implemented as appropriate) -- Progress progress toward functional goals as expected -- Goal: Individualization and Mutuality Outcome: Ongoing (Interventions Implemented as Appropriate) 04/17/14 1353 04/17/14 1636 04/17/14 1935 Mutuality/Individual Preferences What anxieties, fears or concerns do you have about your health or care? some anxiety about coming into hospital -- -- What questions do you have about your health or care? none at this time-Dr. Shepard has answered them already -- -- What information would help us give you more personalized care? -- -- none Individualization Individualize the Plan of Care: -- Patient reminded to limit use of left arm -- Goal: Fall Prevention-Safe Patient Handling Outcome: Ongoing (Interventions Implemented as Appropriate) 04/17/14 1945 04/18/14 0344 Safety Interventions Safety Precautions/Fall Reduction fall reduction program maintained;lighting adjusted for task/safety;nonskid shoes/slippers when out of bed -- Musculoskeletal Interventions Activity/Level of Assistance -- ambulated;independently Positioning HOB up 30 degrees -- Muscle Strengthening activity/mobility promoted;mobility in bed promoted;personal routines for BADL/IADL promoted -- Self-Care Promotion personal routines for BADL/IADL promoted;personal/BADL objects within reach -- P[place] Fall Risk History of Falling 0 -- Secondary Diagnosis 15 -- Ambulatory Aids 0 -- Intravenous Therapy/Heparin/Saline Lock 20 -- Gait/Transferring 0 -- Mental Status 0 -- Score 35 -- OTHER Pabon Fall Risk Medium (25-44) -- Goal: Infection Control Outcome: Ongoing (Interventions Implemented as Appropriate) 04/17/14 194 Safety Interventions Isolation Precautions standard precautions maintained Infection Prevention blood glucose management;environmental surveillance;hydration promoted;nutrition promoted;promote handwashing;rest/sleep promoted Coping/Psychosocial Response Interventions Counseling goal setting facilitated;personal strengths integrated Goal: Discharge Needs Assessment Outcome: Ongoing (Interventions Implemented as Appropriate) 04/17/14 1353 04/17/14 1936 04/18/14 0514 Discharge Needs Assessment Concerns to be Addressed no discharge needs identified -- -- Readmission Within the Last 30 Days no previous admission in last 30 days -- -- Equipment Needed After Discharge none -- -- Discharge Planning Comments Patient expects to go home tomorrw -- -- Living Environment Transportation Available -- -- car;family or friend will provide Self-Care Equipment Currently Used at Home -- none -- Current Health Anticipated Changes Related to Illness none -- -- Comments: OUTCOME EVALUATION NOTE: OUTCOME SUMMARY: Mr. Hendrix did well overnight. VSS with minimal complaints of pain, medicated as ordered. Patient has remained NPO since midnight as ordered, awaiting xray and ICD/pacemaker interrogation. All medication given as ordered. Remained on bedside potline monitor in SB 55, paced rhythm. Denies chest pain, denies sob this tour. PLAN MOVING FORWARD: Xray in morning, ICD/Pacemaker interrogation, ambulation, discharge to home INDIVIDUALIZED FALL PREVENTION: Assistance: independent Supervision: independent, SBA as needed Surveillance: Purposeful rounding, call coleman within reach, bed in low position, cardiac monitoring CPG OUTCOME EVALUATION: * Plan of Care - Ely Villalpando RN - 04/17/2014 4:39 PM EST Problem: General Plan of Care Goal: Individualization and Mutuality 04/17/14 1636 Individualization Individualize the Plan of Care: Patient reminded to limit use of left arm * Plan of Care - Ely Villalpando RN - 04/17/2014 2:00 PM EST Problem: General Plan of Care Goal: Plan of Care Review Outcome: Ongoing (Interventions Implemented as Appropriate) 04/17/14 1353 Coping/Psychosocial Response Interventions Plan of Care Reviewed with patient Plan of Care Review Plan of Care Outcome Status ongoing (interventions implemented as appropriate) Progress progress toward functional goals as expected OUTCOME EVALUATION NOTE: OUTCOME SUMMARY: Patient admitted to [facility] via bed from EP lab. Is alert and appropriate. Oriented to call coleman system and SSU routine. PLAN MOVING FORWARD: POC reviewed with patient. All questions answered at this time. INDIVIDUALIZED FALL PREVENTION: Assistance: SBA with ambulation Supervision: Set up for meals. Independent with personal ADLs. Surveillance: Purposeful rounding, continuous tele and pulse ox monitoring. Daughter at bedside. CPG GOAL OUTCOME EVALUATION: Goal: Individualization and Mutuality Outcome: Ongoing (Interventions Implemented as Appropriate) 04/17/14 1353 Mutuality/Individual Preferences What anxieties, fears or concerns do you have about your health or care? some anxiety about coming into hospital What questions do you have about your health or care? none at this time-Dr. Shepard has answered them already Goal: Fall Prevention-Safe Patient Handling Outcome: Ongoing (Interventions Implemented as Appropriate) 04/17/14 1300 04/17/14 1353 Safety Interventions Safety Precautions/Fall Reduction -- environmental modification;fall reduction program maintained;lighting adjusted for task/safety;nonskid shoes/slippers when out of bed;room near unit station Musculoskeletal Interventions Activity/Level of Assistance -- bed rest Positioning -- HOB up 30-45 degrees Muscle Strengthening -- mobility in bed promoted Self-Care Promotion -- meal setup provided;independence encouraged while providing assistance P[place]on Fall Risk History of Falling 0 -- Secondary Diagnosis 15 -- Ambulatory Aids 0 -- Intravenous Therapy/Heparin/Saline Lock 20 -- Gait/Transferring 0 -- Mental Status 0 -- Score 35 -- OTHER Pabon Fall Risk Medium (25-44) -- Goal: Infection Control Outcome: Ongoing (Interventions Implemented as Appropriate) 04/17/14 1353 Safety Interventions Isolation Precautions standard precautions maintained Infection Prevention environmental surveillance Coping/Psychosocial Response Interventions Counseling goal setting facilitated Goal: Discharge Needs Assessment Outcome: Ongoing (Interventions Implemented as Appropriate) 04/17/14 1353 Discharge Needs Assessment Concerns to be Addressed no discharge needs identified Readmission Within the Last 30 Days no previous admission in last 30 days Equipment Needed After Discharge none Discharge Planning Comments Patient expects to go home tomorrw Living Environment Transportation Available family or friend will provide Self-Care Equipment Currently Used at Home none Current Health Anticipated Changes Related to Illness none documented in this encounter Plan of Treatment Upcoming Encounters Date Type Department Care Team (Late st Contact Info) Description 12/18/2023 10:00 AM EDT Hospital Encounter [place] [address] Arrived documented as of this encounter Procedures Procedure Name Priority Date/Time Associated Diagnosis Comments POCT GLUCOSE Routine 04/18/2014 7:55 AM EST XR CHEST PA AND LATERAL Routine 04/18/2014 6:43 AM EST POCT GLUCOSE Routine 04/18/2014 3:32 AM EST POCT GLUCOSE Routine 04/18/2014 12:08 AM EST POCT GLUCOSE Routine 04/17/2014 9:53 PM EST POCT GLUCOSE Routine 04/17/2014 8:03 PM EST POCT GLUCOSE Routine 04/17/2014 5:23 PM EST POCT GLUCOSE Routine 04/17/2014 2:11 PM EST URINALYSIS WITH REFLEX CULTURE STAT 04/17/2014 10:35 AM EST POCT GLUCOSE Routine 04/17/2014 10:09 AM EST documented in this encounter Results * POCT Glucose (04/18/2014 7:55 AM EST) POC Glucose 140 60 - 199 mg/dL [facility] Comment: Supplemental ranges: <140 mg/dL before meals <180 mg/dL all other times of the day Blood specimen (specimen) 04/18/2014 7:55 AM EST 04/18/2014 7:55 AM EST Myrna Shepard MD POINT OF CARE TEST ORDERABLES MONICA PERALTA * XR chest routine PA & lateral (04/18/2014 6:43 AM EST) Anatomical Region Laterality Modality Chest N/A Radiographic Mahogany ging 04/18/2014 6:43 AM EST Impressions 04/18/2014 7:12 AM EST IMPRESSION: 1. No pneumothorax. 2. Left-sided ICD with leads now in satisfactory position. This report was reviewed by Petey Burnett at 04/18/2014 7:07 AM Film and interpretation reviewed by the attending Narrative 04/18/2014 7:12 AM EST EXAMINATION: CHEST ROUTINE 2 VIEWS CLINICAL HISTORY: New device, r/o ptx, check device position TECHNIQUE: PA and lateral the chest COMPARISON: Chest radiograph 04/10/2014, 01/11/2014 FINDINGS: A left anterior chest wall pulse generator with 2 leads which appear to be in appropriate position in the right ventricle and right atrium. Right atrial lead has been replaced since the prior radiograph. No pneumothorax. The lungs are clear. The cardiomediastinal silhouette and pulmonary vasculature are within normal limits. No pleural effusion. Mild degenerative changes of the thoracic spine are unchanged. Procedure Note Petey Burnett MD - 04/18/2014 EXAMINATION: CHEST ROUTINE 2 VIEWS CLINICAL HISTORY: New device, r/o ptx, check device position TECHNIQUE: PA and lateral the chest COMPARISON: Chest radiograph 04/10/2014, 01/11/2014 FINDINGS: A left anterior chest wall pulse generator with 2 leads whichappear to be in appropriate position in the right ventricle and right atrium.Right atrial lead has been replaced since the prior radiograph. Nopneumothorax. The lungs are clear. The cardiomediastinal silhouette and pulmonaryvasculature are within normal limits. No pleural effusion. Mild degenerative changes of the thoracic spine are unchanged. IMPRESSION IMPRESSION: 1. No pneumothorax. 2. Left-sided ICD with leads now in satisfactory position. This report was reviewed by Petey Burnett at 04/18/2014 7:07 AM Film and interpretation reviewed by the attending Myrna Shepard MD IMG DX ORDERABLES * POCT Glucose (04/18/2014 3:32 AM EST) POC Glucose 126 60 - 199 mg/dL [facility] Comment: Supplemental ranges: <140 mg/dL before meals <180 mg/dL all other times of the day Blood specimen (specimen) 04/18/2014 3:32 AM EST 04/18/2014 3:32 AM EST Myrna Shepard MD POINT OF CARE TEST ORDERABLES Performing Organization Address [facility] Phone Number [facility] * POCT Glucose (04/18/2014 12:08 AM EST) POC Glucose 113 60 - 199 mg/dL [facility] Comment: Supplemental ranges: <140 mg/dL before meals <180 mg/dL all other times of the day Blood specimen (specimen) 04/18/2014 12:08 AM EST 04/18/2014 12:08 AM EST Myrna Shepard MD POINT OF CARE TEST ORDERABLES Performing Organization Address [facility] Phone Number [facility] * POCT Glucose (04/17/2014 9:53 PM EST) POC Glucose 120 60 - 199 mg/dL [facility] Comment: Supplemental ranges: <140 mg/dL before meals <180 mg/dL all other times of the day Blood specimen (specimen) 04/17/2014 9:53 PM EST 04/17/2014 9:53 PM EST Narrative Authorizing Provider Result Angelique Shepard MD POINT OF CARE TEST ORDERABLES Performing Organization Address [facility] Phone Number [facility] * POCT Glucose (04/17/2014 8:03 PM EST) POC Glucose 169 60 - 199 mg/dL [facility] Comment: Supplemental ranges: <140 mg/dL before meals <180 mg/dL all other times of the day Blood specimen (specimen) 04/17/2014 8:03 PM EST 04/17/2014 8:03 PM EST Myrna Shepard MD POINT OF CARE TEST ORDERABLES Performing Organization Address [facility] Co de Phone Number [facility] * POCT Glucose (04/17/2014 5:23 PM EST) POC Glucose 155 60 - 199 mg/dL [facility] Comment: Supplemental ranges: <140 mg/dL before meals <180 mg/dL all other times of the day Blood specimen (specimen) 04/17/2014 5:23 PM EST 04/17/2014 5:23 PM EST Myrna Shepard MD POINT OF CARE TEST ORDERABLES Performing Organization Address [facility] de Phone Number [facility] * POCT Glucose (04/17/2014 2:11 PM EST) POC Glucose 130 60 - 199 mg/dL [facility] Comment: Supplemental ranges: <140 mg/dL before meals <180 mg/dL all other times of the day Blood specimen (specimen) 04/17/2014 2:11 PM EST 04/17/2014 2:11 PM EST Myrna Shepard MD POINT OF CARE TEST ORDERABLES Performing Organization Address [facility] Co de Phone Number [facility] * (ABNORMAL) Urinalysis with microscopic (04/17/2014 10:35 AM EST) Glucose UA Negative Negative mg/dL [facility] Protein UA Negative Negative mg/dL [facility] Bilirubin UA Negative Negative mg/dL [facility] Comment: Clinical correlation required for positive Urine Bilirubin results as false positive may occur with some drugs and drug related products. If a false positive is suspected a serum total bilirubin should be considered if clinically indicated. Urobilinogen UA Normal Normal mg/dL [facility] pH UA 5.0 5.0 - 8.0 [facility] Blood UA Negative Negative mg/dL [facility] Ketones UA Negative Negative mg/dL [facility] Nitrite UA Negative Negative [facility] Leukocytes UA Negative Negative mcL [facility] Appearance UA Clear Clear [facility] Spec Eva UA 1.021 1.002 - 1.030 [facility] Color UA Yellow Yellow [facility] RBC UA <1 0 - 3 /HPF [facility] WBC UA 2 0 - 3 /HPF [facility] Hyaline Cast UA 5(H) 0 - 2 /LPF [facility] Urine specimen (specimen) 04/17/2014 10:35 AM EST 04/17/2014 10:51 AM EST Narrative Resulting Agency Comment Spec In Lab Myrna Shepard MD URINE ORDERABLES Performing Organization Address City/[facility]/ZIP Co de Phone Number MONICA PERALTA * POCT Glucose (04/17/2014 10:09 AM EST) POC Glucose 153 60 - 199 mg/dL [facility] Comment: Supplemental ranges: <140 mg/dL before meals <180 mg/dL all other times of the day Blood specimen (specimen) 04/17/2014 10:09 AM EST 04/17/2014 10:09 AM EST Myrna Shepard MD POINT OF CARE TEST ORDERABLES Performing Organization Address City/[facility] Co de Phone Number MONICA PERALTA documented in this encounter Visit Diagnoses Diagnosis Ventricular tachycardia Paroxysmal ventricular tachycardia documented in this encounter Administered Medications Inactive Administered Medications - up to 3 most recent administrations Medication Order MAR Action Action Date Dose Rate Site aspirin EC tablet 81 mg 81 mg, Oral, DAILY, First dose on Thu04/17/14 at 1500, Until Discontinued, Routine Given 04/18/2014 8:33 AM EST 81 mg Given 04/17/2014 3:06 PM EST 81 mg betaxolol (KERLONE) tablet 10 mg 10 mg, Oral, DAILY, First dose on Thu04/18/14 at 0900, Until Discontinued, Routine Given 04/18/2014 8:34 AM EST 10 mg BUpivacaine (PF) (MARCAINE) 0.5 % (5 mg/mL) injection 150 mg 150 mg (30 mL), Subcutaneous, ONCE, 1 dose, On Thu04/17/14 at 1045, EP (Intra-Procedure), Routine Given 04/17/2014 11:51 AM EST 150 mg ceFAZolin (ANCEF) 1g in dextrose 5% 50mL 1,000 mg (1 g), Intravenous, EVERY 8 HOURS, 2 doses, First dose on Thu04/17/14 at 1900, Last dose on Thu04/18/14 at 0300, Administer over 30 Minutes, Recovery (Recovery-Hospital Unit), Indication for (Active or Suspected): Prophylaxis Given 04/18/2014 3:08 AM EST 1,000 mg 100 mL/ hr Given 04/17/2014 6:39 PM EST 1,000 mg 100 mL/hr ceFAZolin (ANCEF) 2g in dextrose 5% 50 mL 2 g, Intravenous, ONCE, 1 dose, On Thu04/17/14 at 1045, Administer over 30 Minutes, For use in the electrophysiology lab (EP lab) only for procedural sedation with direct provider supervision and verbal order., EP (Intra-Procedure), Indication for (Active or Suspected): Prophylaxis Given 04/17/2014 11:33 AM EST 2 g 100 mL/hr clopidogrel (PLAVIX) tablet 75 mg 75 mg, Oral, DAILY, First dose on Thu04/17/14 at 1400, Until Discontinued, Routine Given 04/18/2014 8:33 AM EST 75 mg Given 04/17/2014 2:14 PM EST 75 mg fentaNYL 50mcg/mL injection 25-50 mcg, Intravenous, EVERY 5 MIN PRN, Starting on Thu04/17/14 at 1019, Until Thu04/17/14 at 1300, Pain, As needed to induce or maintain moderate sedation per [facility] Moderate Sedation Protocol, For use in the electrophysiology lab (EP lab) only for procedural sedation with direct provider supervision and verbal order. RASS goal (-)2 to (-)3. Start at 25 mcg, Dose not to exceed 50 mcg/dose, 250 mcg/hr, or 20 mcg/kg per case., EP (Intra-Procedure), Routine Given 04/17/2014 12:24 PM EST 25 mcg Given 04/17/2014 12:16 PM EST 50 mcg Given 04/17/2014 12:05 PM EST 25 mcg glipiZIDE (GLUCOTROL) CR tablet 5 mg 5 mg, Oral, DAILY, First dose on Thu04/18/14 at 0900, Until Discontinued, Routine Given 04/18/2014 8:33 AM EST 5 mg insulin aspart (novoLOG) VIAL injection 1-4 Units 1-4 Units, Subcutaneous, EVERY 4 HOURS SCHEDULED, First dose on Thu04/17/14 at 1600, Until Discontinued, CORRECTION BOLUS Sensitive to insulin lean patient or total daily dose of all insulin needed to achieve glycemic control less than 30 units BG 140 - 160 Give 1 unit BG 161 - 200 Give 2 units BG 201 - 240 Give 3 units BG greater than 240, give 4 units and recheck BG in 2 hours. If BG remains greater than 240, repeat 4 units (no more than three times) & call for new basal insulin orders. If less than 240 after two hours, give no insulin and resume prior schedule. Given 04/17/2014 5:25 PM EST 1 Units lamoTRIgine (LaMICtal) tablet 100 mg 100 mg, Oral, DAILY, First dose on Thu04/18/14 at 0900, Until Discontinued, Routine Given 04/18/2014 8:33 AM EST 100 mg lidocaine (XYLOCAINE) 20 mg/mL (2 %) injection 400 mg 400 mg (20 mL), Subcutaneous, ONCE, 1 dose, On Thu04/17/14 at 1045, EP (Intra-Procedure), Routine Given 04/17/2014 11:50 AM EST 400 mg lisinopril (PRINIVIL;ZESTRIL) tablet 20 mg 20 mg, Oral, DAILY, First dose on Thu04/18/14 at 0900, Until Discontinued, Routine Given 04/18/2014 8:33 AM EST 20 mg magnesium oxide (MAG-OX) tablet 400 mg 400 mg, Oral, DAILY, First dose on Thu04/18/14 at 0900, Until Discontinued, Routine Given 04/18/2014 8:33 AM EST 400 mg metFORMIN (GLUCOPHAGE) tablet 1,000 mg 1,000 mg, Oral, 2 TIMES DAILY WITH MEALS, First dose on Thu04/17/14 at 1700, Until Discontinued, Routine Given 04/18/2014 8:33 AM EST 1,000 mg Given 04/17/2014 4:57 PM EST 1,000 mg midazolam (PF) (VERSED) 1 mg/mL injection 0.5-1 mg 0.5-1 mg, Intravenous, EVERY 5 MIN PRN, Starting on Thu04/17/14 at 1019, Until Thu04/17/14 at 1300, Sleep, As needed to induce or maintain moderate sedation per [facility] Moderate Sedation Protocol, For use in the electrophysiology lab (EP lab) only for procedural sedation with direct provider supervision and verbal order. RASS goal (-)2 to (-)3. Dose not to exceed 1 mg per dose, 5mg/hour, or 0.2mg/kg per case., EP (Intra-Procedure), Routine Given 04/17/2014 12:23 PM EST 1 mg Given 04/17/2014 12:17 PM EST 1 mg Given 04/17/2014 12:09 PM EST 1 mg neomycin-polymyxin B (NEOSPORIN) irrigation solution Irrigation, ONCE, On Thu04/17/14 at 1045, 1 dose, EP (Intra-Procedure) Given 04/17/2014 11:35 AM EST oxyCODONE-acetaminophen (PERCOCET) 5-325 mg per tablet 1 tablet 1 tablet, Oral, EVERY 4 HOURS PRN, Starting on Thu04/17/14 at 1329, Until Thu04/18/14 at 1419, Pain, Maximum dose of acetaminophen is 4000 mg from all sources in 24 hours. PRN for pain NOT relieved by ultram, Routine Given 04/18/2014 7:36 AM EST 1 tablet Given 04/18/2014 3:33 AM EST 1 tablet Given 04/17/2014 11:01 PM EST 1 tablet pantoprazole (PROTONIX) tablet 40 mg 40 mg, Oral, 2 TIMES DAILY, First dose on Thu04/17/14 at 2100, Until Discontinued, Restricted to patients on clopidogrel (PLAVIX) who require a proton pump inhibitor, Routine Given 04/18/2014 8:33 AM EST 40 mg Given 04/17/2014 8:32 PM EST 40 mg sodium chloride 0.9 % flush 5 mL 5 mL, Intravenous, EVERY 12 HOURS, First dose on Thu04/17/14 at 1045, Until Discontinued, Day of Surgery (Day of Procedure), STAT Given 04/17/2014 11:35 AM EST 5 mLs sodium chloride 0.9% infusion 75 mL/hr, Intravenous, CONTINUOUS, Starting on Thu04/17/14 at 1045, Until Thu04/17/14 at 1329, Day of Surgery (Day of Procedure) Continued Bag 04/17/2014 10:45 AM EST 75 mL/hr 75 mL/hr zolpidem (AMBIEN) tablet 5 mg 5 mg, Oral, ONCE, 1 dose, On Thu04/18/14 at 0045, Routine Given 04/18/2014 12:45 AM EST 5 mg documented in this encounter Active and Recently Administered Medications Times are shown in EST. Scheduled Medication Order 04/16/2014 04/17/2014 04/18/2014 aspirin EC tablet 81 mg (CANCELED) 81 mg, Oral, DAILY, First dose on Thu04/17/14 at 1500, Until Discontinued, Routine 1506 (Given - Provider: Ely Villaplando, NAHUN) 0833 (Given - Provider: Jace Howard RN) betaxolol (KERLONE) tablet 10 mg (CANCELED) 10 mg, Oral, DAILY, First dose on Thu04/18/14 at 0900, Until Discontinued, Routine 0834 (Given - Provider: Jace Howard RN) BUpivacaine (PF) (MARCAINE) 0.5 % (5 mg/mL) injection 150 mg (COMPLETED) 150 mg (30 mL), Subcutaneous, ONCE, 1 dose, On Thu04/17/14 at 1045, EP (Intra-Procedure), Routine 1151 (Given - Provider: Cheryle Adan RN) ceFAZolin (ANCEF) 1g in dextrose 5% 50mL (COMPLETED) 1,000 mg (1 g), Intravenous, EVERY 8 HOURS, 2 doses, First dose on Thu04/17/14 at 1900, Last dose on Thu04/18/14 at 0300, Administer over 30 Minutes, Recovery (Recovery-Hospital Unit), Indication for (Active or Suspected): Prophylaxis 1839 (Given - Provider: Ely Villalpando, NAHUN) 0308 (Given - Provider: Tara Thompson RN) ceFAZolin (ANCEF) 2g in dextrose 5% 50 mL (COMPLETED) 2 g, Intravenous, ONCE, 1 dose, On Thu04/17/14 at 1045, Administer over 30 Minutes, For use in the electrophysiology lab (EP lab) only for procedural sedation with direct provider supervision and verbal order., EP (Intra-Procedure), Indication for (Active or Suspected): Prophylaxis 1133 (Given - Provider: Cheryle Adan RN) clopidogrel (PLAVIX) tablet 75 mg (CANCELED) 75 mg, Oral, DAILY, First dose on Thu04/17/14 at 1400, Until Discontinued, Routine 1414 (Given - Provider: Ely Villalpando RN) 0833 (Given - Provider: Jace Howard RN) glipiZIDE (GLUCOTROL) CR tablet 5 mg (CANCELED) 5 mg, Oral, DAILY, First dose on Thu04/18/14 at 0900, Until Discontinued, Routine 0833 (Given - Provider: Jace Howard RN) insulin aspart (novoLOG) VIAL injection 1-4 Units (CANCELED) 1-4 Units, Subcutaneous, EVERY 4 HOURS SCHEDULED, First dose on Thu04/17/14 at 1600, Until Discontinued, CORRECTION BOLUS Sensitive to insulin lean patient or total daily dose of all insulin needed to achieve glycemic control less than 30 units BG 140 - 160 Give 1 unit BG 161 - 200 Give 2 units BG 201 - 240 Give 3 units BG greater than 240, give 4 units and recheck BG in 2 hours. If BG remains greater than 240, repeat 4 units (no more than three times) & call for new basal insulin orders. If less than 240 after two hours, give no insulin and resume prior schedule. 1600 (Not Given - Provider: Ely Villalpando RN - Reason: See comment - Comment: FS at 1411 130, will perform next FS AC and give correction bolus if needed.)1725 (Given - Provider: Ely Villalpando, NAHUN)2000 (Not Given - Provider: Tara Thompson RN - Reason: Patient/family refused - Comment: would like to recheck around 2200, then decide if medication is needed) 0000 (Not Given - Provider: Tara Thompson RN - Reason: Order parameters not met)0400 (Not Given - Provider: Tara Thompson RN - Reason: Order parameters not met)0800 (Not Given - Provider: Jace Howard RN - Reason: Contraindicated)1200 (Due) lamoTRIgine (LaMICtal) tablet 100 mg (CANCELED) 100 mg, Oral, DAILY, First dose on Thu04/18/14 at 0900, Until Discontinued, Routine 0833 (Given - Provider: Jace Howard RN) lidocaine (XYLOCAINE) 20 mg/mL (2 %) injection 400 mg (COMPLETED) 400 mg (20 mL), Subcutaneous, ONCE, 1 dose, On Thu04/17/14 at 1045, EP (Intra-Procedure), Routine 1150 (Given - Provider: Cheryle Adan RN) lisinopril (PRINIVIL;ZESTRIL) tablet 20 mg (CANCELED) 20 mg, Oral, DAILY, First dose on Thu04/18/14 at 0900, Until Discontinued, Routine 08 (Given - Provider: Jace Howard RN) magnesium oxide (MAG-OX) tablet 400 mg (CANCELED) 400 mg, Oral, DAILY, First dose on Thu04/18/14 at 0900, Until Discontinued, Routine 08 (Given - Provider: Jace Howard RN) metFORMIN (GLUCOPHAGE) tablet 1,000 mg (CANCELED) 1,000 mg, Oral, 2 TIMES DAILY WITH MEALS, First dose on Thu04/17/14 at 1700, Until Discontinued, Routine 165 (Given - Provider: Ely Villalpando RN) 0833 (Given - Provider: Jace Howard RN) neomycin-polymyxin B (NEOSPORIN) irrigation solution (COMPLETED) Irrigation, ONCE, On Thu04/17/14 at 1045, 1 dose, EP (Intra-Procedure) 1135 (Given - Provider: Cheryle Adan RN) pantoprazole (PROTONIX) tablet 40 mg (CANCELED) 40 mg, Oral, 2 TIMES DAILY, First dose on Thu04/17/14 at 2100, Until Discontinued, Restricted to patients on clopidogrel (PLAVIX) who require a proton pump inhibitor, Routine 2031 (Given - Provider: Tara Thompson RN) 0833 (Given - Provider: Jace Howard RN) sodium chloride 0.9 % flush 5 mL (CANCELED) 5 mL, Intravenous, EVERY 12 HOURS, First dose on Thu04/17/14 at 1045, Until Discontinued, Day of Surgery (Day of Procedure), STAT 1135 (Given - Provider: Cheryle Adan RN) zolpidem (AMBIEN) tablet 5 mg (COMPLETED) 5 mg, Oral, ONCE, 1 dose, On Thu04/18/14 at 0045, Routine 0045 (Given - Provider: Tara Thompson, NAHUN) Continuous Medication Order 04/16/2014 04/17/2014 04/18/2014 sodium chloride 0.9% infusion (CANCELED) 75 mL/hr, Intravenous, CONTINUOUS, Starting on Thu04/17/14 at 1045, Until Thu04/17/14 at 1329, Day of Surgery (Day of Procedure) 1045 (Continued Bag - Provid er: Cheryle Adan RN - Comment: started in SDP)1300 (Stopped - Provider: Ely Villalpando RN) PRN Medication Order 04/16/2014 04/17/2014 04/18/2014 fentaNYL 50mcg/mL injection (CANCELED) 25-50 mcg, Intravenous, EVERY 5 MIN PRN, Starting on Thu04/17/14 at 1019, Until Thu04/17/14 at 1300, Pain, As needed to induce or maintain moderate sedation per [facility] Moderate Sedation Protocol, For use in the electrophysiology lab (EP lab) only for procedural sedation with direct provider supervision and verbal order. RASS goal (-)2 to (-)3. Start at 25 mcg, Dose not to exceed 50 mcg/dose, 250 mcg/hr, or 20 mcg/kg per case., EP (Intra-Procedure), Routine 1137 (Given - Provider: Cheryle Adan RN)1141 (Given - Provider: Cheryle Adan RN)1150 (Given - Provider: Cheryle Adan RN)1203 (Given - Provider: Cheryle Adan RN)1205 (Given - Provider: Cheryle Adan RN)1216 (Given - Provider: Cheryle Adan RN)1224 (Given - Provider: Cheryle Adan RN) midazolam (PF) (VERSED) 1 mg/mL injection 0.5-1 mg (CANCELED) 0.5-1 mg, Intravenous, EVERY 5 MIN PRN, Starting on Thu04/17/14 at 1019, Until Thu04/17/14 at 1300, Sleep, As needed to induce or maintain moderate sedation per [facility] Moderate Sedation Protocol, For use in the electrophysiology lab (EP lab) only for procedural sedation with direct provider supervision and verbal order. RASS goal (-)2 to (-)3. Dose not to exceed 1 mg per dose, 5mg/hour, or 0.2mg/kg per case., EP (Intra-Procedure), Routine 1137 (Given - Provider: Cheryle Adan RN)1141 (Given - Provider: Cheryle Adan RN)1150 (Given - Provider: Cheryle Adan RN)1203 (Given - Provider: Cheryle Adan RN)1209 (Given - Provider: Cheryle Adan RN)1217 (Given - Provider: Cheryle Adan RN)1223 (Given - Provider: Cheryle Adan RN) oxyCODONE-acetaminophen (PERCOCET) 5-325 mg per tablet 1 tablet 1 tablet, Oral, EVERY 4 HOURS PRN, Starting on Thu04/17/14 at 1329, Until Thu04/18/14 at 1419, Pain, Maximum dose of acetaminophen is 4000 mg from all sources in 24 hours. PRN for pain NOT relieved by ultram, Routine 1451 (Given - Provider: Ely Villalpando, NAHUN)1845 (Given - Provider: Ely Villalpando, NAHUN)2301 (Given - Provider: Tara Thompson, RN) 0333 (Given - Provider: Tara Thompson, RN)0736 (Given - Provider: Jace Howard, RN) documented in this encounter Care Teams Ship Self Defense System Mk1 Operator Relationship Specialty Start Date End Date Ángel Bingham MD [facility] [address] [place] [address] PCP - General 01/31/14 09/01/16 documented as of this encounter
--- OUTSIDE RECORDS SUMMARY | 2023-11-03 01:28 | XMS_ITS | Encounter Summary ---
Author Organization Formerly [facility], 1928–1983 Address [facility] [place] [address] Care Team Providers Care Amusement Machine Mechanic Name Role Phone Ángel Bingham MD Primary Care Provider [phone] Encounter Details Date Type Department Care Team (Late st Contact Info) Description 04/11/2014 Orders Only Cardiology at [address] [phone] Myrna Shepard MD [facility] [address] [place] [address] Ventricular tachycardia Social History Tobacco Use Types Packs/Day Years [...] AM EDT Hospital Encounter Non-[place] [phone] Arrived documented as of this encounter Visit Diagnoses Diagnosis Ventricular tachycardia Paroxysmal ventricular tachycardia documented in this encounter Care Teams Amusement Machine Mechanic Relationship Specialty Start Date End Date Ángel Bingham MD [facility] [address] [place] [address] [place] [address] PCP - General 01/31/14 09/01/16 documented as of this encounter
--- OUTSIDE RECORDS SUMMARY | 2023-11-03 01:28 | XMS_ITS | Encounter Summary ---
Author Organization [facility] [place] [address] Care Team Providers Care Drawer In Jacquard Loom Name Role Phone Ángel Bingham MD Primary Care Provider [phone] Encounter Details Date Type Department Care Team (Late st Contact Info) Description 04/10/2014 Orders Only Cardiology at [address] [phone] Social History Tobacco Use Types Packs/Day Years [...] AM EDT Hospital Encounter Non-Invasive [place] [address] Arrived documented as of this encounter Procedures Procedure Name Priority Date/Time Associated Diagnosis Comments CARDIAC DEVICE CHECK - IN CLINIC Routine 04/10/2014 10:51 AM EST documented in this encounter Results * (ABNORMAL) Cardiac device check - In Clinic (04/10/2014 10:51 AM EST) Date Time Interrogation Session IDCO Type Interrogation Session In Clinic IDCO [facility] Name [facility] IDCO Battery Date Time of Measurements IDCO Battery Status Beginning of Service IDCO Battery Remaining Longevity 126 mo IDCO Battery Remaining Percentage 100 % IDCO Capacitor Last Charge Date Time IDCO Capacitor Charge Time 9.7 s IDCO Capacitor Charge Type Reformation IDCO Capacitor Last Charge Date Time IDCO Capacitor Charge Time 3.8 s IDCO Capacitor Charge Energy 21 J IDCO Capacitor Charge Type Shock IDCO Episode Statistic Type Category VF IDCO Episode Statistic Vendor Type Category VF IDCO Episode Statistic Recent Count 0 IDCO Episode Statistic Recent Date Time Start 20140111 IDCO Episode Statistic Recent Date Time End 20140410 IDCO Episode Statistic Type Category VT IDCO Episode Statistic Vendor Type Category VT IDCO Episode Statistic Recent Count 0 IDCO Episode Statistic Recent Date Time Start 20140111 IDCO Episode Statistic Recent Date Time End 20140410 IDCO Episode Statistic Type Category VT IDCO Episode Statistic Vendor Type Category VT-1 IDCO Episode Statistic Recent Count 0 IDCO Episode Statistic Recent Date Time Start 20140111 IDCO Episode Statistic Recent Date Time End 20140410 IDCO Episode Statistic Type Category Monitor IDCO Episode Statistic Vendor Type Category IDCO Episode Statistic Recent Count 0 IDCO Episode Statistic Recent Date Time Start 20140111 IDCO Episode Statistic Recent Date Time End 20140410 IDCO Episode Statistic Type Category Other IDCO Episode Statistic Vendor Type Category IDCO Episode Statistic Recent Count 0 IDCO Episode Statistic Recent Date Time Start 20140111 IDCO Episode Statistic Recent Date Time End 20140410 IDCO Episode Statistic Type Category VT IDCO Episode Statistic Vendor Type Category NSVT IDCO Episode Statistic Recent Count 0 IDCO Episode Statistic Recent Date Time Start 20140111 IDCO Episode Statistic Recent Date Time End 20140410 IDCO Episode Statistic Type Category AT/AF IDCO Episode Statistic Vendor Type Category ATR IDCO Episode Statistic Recent Count 0 IDCO Episode Statistic Recent Date Time Start 20140111 IDCO Episode Statistic Recent Date Time End 20140410 IDCO Albaro Setting Mode (NBG Code) VVI IDCO Albaro Setting Lower Rate Limit 50 {beats}/ min IDCO Tachy Therapy Setting Ventricular Status On [...] Polarity Bipolar IDCO Lead Channel Setting Pacing Polarity Bipolar IDCO Lead Channel Setting Pacing Amplitude 2.0 V IDCO Lead Channel Setting Pacing Pulse Width 0.5 ms IDCO Lead Channel Setting Pacing Polarity Bipolar IDCO Implantable Pulse Generator Type Defibrillator IDCO Implantable Pulse Generator Model E162 IDCO Implantable Pulse Generator Serial Number [id number] IDCO Implantable Pulse Generator Therapist'S Assistant [place] [employer] IDCO Implantable Pulse Generator Implant Date 20140110 IDCO Implantable Lead Model 4136 IDCO Implantable Lead Serial Number [id number] IDCO Implantable Lead Therapist'S Assistant Guidant IDCO Implantable Lead Implant Date IDCO Implantable Lead Polarity Type Bipolar Lead IDCO Implantable Lead Location Right Atrium IDCO Implantable Lead Model 0292 IDCO Implantable Lead Serial Number [id number] IDCO Implantable Lead Therapist'S Assistant [place] [employer] IDCO Implantable Lead Implant Date IDCO Implantable Lead Location Right Ventricle IDCO Lead Channel Measurements Date and Time Start 20140409 IDCO Lead Channel Sensing Intrinsic Amplitude Mean mV IDCO Lead Channel Sensing Polarity Bipolar IDCO Lead Channel Impedance Value 628 ohms IDCO Lead Channel Impedance Polarity Bipolar IDCO Lead Channel Measurements Date and Time Start 20140409 IDCO Lead Channel Sensing Intrinsic Amplitude Mean 8.9 mV IDCO Lead Channel Sensing Polarity Bipolar IDCO Lead Channel Impedance Value 505 ohms IDCO Lead Channel Impedance Polarity Bipolar IDCO Lead High Voltage Channel Date Time 20140409 IDCO Lead High Voltage Channel Impedance 83 ohms IDCO Lead High Voltage Channel Measurement Type Low Voltage Pulse IDCO Statistic Date Time Start 20140111 IDCO Statistic Date Time End 20140410 IDCO Albaro Statistic Date Time Start 20140111 IDCO Albaro Statistic Date Time End 20140410 IDCO Albaro Statistic RA Percent Paced 48 % IDCO Albaro Statistic RV Percent Paced 21 % IDCO Atrial Tachy Statistic Date Time Start 20140112 IDCO Atrial Tachy Statistic Date Time End 20140409 IDCO Atrial Tachy Statistic AT/AF [place] Percent 0 % IDCO Therapy Statistic Recent Date Time Start 20140111 IDCO Therapy Statistic Recent Date Time End 20140410 IDCO Therapy Statistic Recent Shocks Delivered 0 IDCO Therapy Statistic Total Date Time Start 20140110 IDCO Therapy Statistic Total Date Time End 20140410 IDCO Therapy Statistic Total Shocks Delivered 2 IDCO Therapy Statistic Recent Shocks Aborted 0 IDCO Therapy Statistic Total Shocks Aborted 0 IDCO Therapy Statistic Recent ATP Delivered 0 IDCO Therapy Statistic Total ATP Delivered 1 IDCO Anatomical Region Laterality Modality Other 04/10/2014 10:5 1 AM EST Physician Cardiology IMPLANTABLE CARD IAC DEVICE documented in this encounter Visit Diagnoses Not on filedocumented in this encounter Care Teams Drawer In Jacquard Loom Relationship Specialty Start Date End Date Ángel Bingham MD [facility] [address] [place] [address] PCP - General 01/31/14 09/01/16 documented as of this encounter
--- OUTSIDE RECORDS SUMMARY | 2023-11-03 01:28 | XMS_ITS | Encounter Summary ---
[place] [address] Care Team Providers Care Financial Sales Consultant Name Role Phone Ángel Bingham MD Primary Care Provider [phone] Encounter Details Date Type Department Care Team (Late st Contact Info) Description 08/17/2014 Orders Only Cardiology at [address] [phone] Social History Tobacco Use Types Packs/Day Years [...] AM EDT Hospital Encounter [place] [address] Arrived documented as of this encounter Procedures Procedure Name Priority Date/Time Associated Diagnosis Comments CARDIAC DEVICE CHECK - REMOTE PATIENT INITIATED Routine 08/17/2014 6:45 AM EDT documented in this encounter Results * (ABNORMAL) Cardiac device check - Remote Patient Initiated (08/17/2014 6:45 AM EDT) Date Time Interrogation Session [id number] IDCO Type Interrogation Session Remote Patient Initiated IDCO Clinic Name [facility] IDCO Battery Date Time of Measurements [id number] IDCO Battery Status Beginning of Service IDCO Battery Remaining Longevity 126 mo IDCO Battery Remaining Percentage 100 % IDCO Capacitor Last Charge Date Time [id number] IDCO Capacitor Charge Time 9.9 s IDCO Capacitor Charge Type Reformation IDCO Episode Identifier APM-7 IDCO Episode Date Time [id number] IDCO Episode Type Category Periodic EGM IDCO Episode Vendor Type Category APMRT IDCO Episode Detection And Therapy Details Presenting EGM IDCO Episode Statistic Type Category VF IDCO Episode Statistic Vendor Type Category VF IDCO Episode Statistic Recent Count 0 IDCO Episode Statistic Recent Date Time Start 20140418 IDCO Episode Statistic Recent Date Time End 20140817 IDCO Episode Statistic Type Category VT IDCO Episode Statistic Vendor Type Category VT IDCO Episode Statistic Recent Count 0 IDCO Episode Statistic Recent Date Time Start 20140418 IDCO Episode Statistic Recent Date Time End 20140817 IDCO Episode Statistic Type Category VT IDCO Episode Statistic Vendor Type Category VT-1 IDCO Episode Statistic Recent Count 0 IDCO Episode Statistic Recent Date Time Start 20140418 IDCO Episode Statistic Recent Date Time End 20140817 IDCO Episode Statistic Type Category Monitor IDCO Episode Statistic Vendor Type Category IDCO Episode Statistic Recent Count 0 IDCO Episode Statistic Recent Date Time Start 20140418 IDCO Episode Statistic Recent Date Time End 20140817 IDCO Episode Statistic Type Category Other IDCO Episode Statistic Vendor Type Category IDCO Episode Statistic Recent Count 0 IDCO Episode Statistic Recent Date Time Start 20140418 IDCO Episode Statistic Recent Date Time End 20140817 IDCO Episode Statistic Type Category VT IDCO Episode Statistic Vendor Type Category NSVT IDCO Episode Statistic Recent Count 2 IDCO Episode Statistic Recent Date Time Start 20140418 IDCO Episode Statistic Recent Date Time End 20140817 IDCO Episode Statistic Type Category AT/AF IDCO Episode Statistic Vendor Type Category ATR IDCO Episode Statistic Recent Count 13 IDCO Episode Statistic Recent Date Time Start 20140418 IDCO Episode Statistic Recent Date Time End 20140817 IDCO Albaro Setting AT Mode Switch Mode [...] E162 IDCO Implantable Pulse Generator Serial Number [id number] IDCO Implantable Pulse Generator Spray Gun Sizer [place] [employer] IDCO Implantable Pulse Generator Implant Date 20140110 IDCO Implantable Lead Model 4136 IDCO Implantable Lead Serial Number [id number] IDCO Implantable Lead Spray Gun Sizer Guidant IDCO Implantable Lead Implant Date 20130421 IDCO Implantable Lead Polarity Type Bipolar Lead IDCO Implantable Lead Location Right Atrium IDCO Implantable Lead Model 0292 IDCO Implantable Lead Serial Number [id number] IDCO Implantable Lead Spray Gun Sizer [place] [employer] IDCO Implantable Lead Implant Date IDCO Implantable Lead Location Right Ventricle IDCO Lead Channel Measurements Date and Time Start 20140718 IDCO Lead Channel Measurements Date and Time End 20140816 IDCO Lead Channel Sensing Intrinsic Amplitude Mean mV IDCO Lead Channel Sensing Polarity Bipolar IDCO Lead Channel Pacing Threshold Amplitude 0.6 V IDCO Lead Channel Pacing Threshold Pulse Width 0.5 ms IDCO Lead Channel Pacing Threshold Measurement Method Box Gluer Manual IDCO Lead Channel Pacing Threshold Polarity Bipolar IDCO Lead Channel Impedance Value 692 ohms IDCO Lead Channel Impedance Polarity Bipolar IDCO Lead Channel Measurements Date and Time Start 20140718 IDCO Lead Channel Measurements Date and Time End 20140816 IDCO Lead Channel Sensing Intrinsic Amplitude Mean 11.6 mV IDCO Lead Channel Sensing Polarity Bipolar IDCO Lead Channel Pacing Threshold Amplitude 0.6 V IDCO Lead Channel Pacing Threshold Pulse Width 0.5 ms IDCO Lead Channel Pacing Threshold Measurement Method Box Gluer Manual IDCO Lead Channel Pacing Threshold Polarity Bipolar IDCO Lead Channel Impedance Value 577 ohms IDCO Lead Channel Impedance Polarity Bipolar IDCO Lead High Voltage Channel Date Time 20140816 IDCO Lead High Voltage Channel Impedance 93 ohms IDCO Lead High Voltage Channel Measurement Type Low Voltage Pulse IDCO Statistic Date Time Start 20140418 IDCO Statistic Date Time End 20140817 IDCO Albaro Statistic Date Time Start 20140418 IDCO Albaro Statistic Date Time End 20140817 IDCO Albaro Statistic RA Percent Paced 11 % IDCO Albaro Statistic RV Percent Paced 1 % IDCO Anatomical Region Laterality Modality Other 08/17/2014 6:45 AM EDT Physician Cardiology IMPLANTABLE CARD IAC DEVICE documented in this encounter Visit Diagnoses Not on filedocumented in this encounter Care Teams Financial Sales Consultant Relationship Specialty Start Date End Date Ángel Bingham MD [facility] [address] [place] [address] PCP - General 01/31/14 09/01/16 documented as of this encounter
--- OUTSIDE RECORDS SUMMARY | 2023-11-03 01:28 | XMS_ITS | Encounter Summary ---
[place] [address] Care Team Providers Care Material Engineer Name Role Phone Ángel Bingham MD Primary Care Provider [phone] Reason for Visit * Reason Comments Cardiomyopathy Encounter Details Date Type Department Care Team (Late st Contact Info) Description 04/10/2014 9:30 AM EST Office Visit Cardiology at [address] [phone] Raul Lopes RN Sustained VT (ventricular tachycardia) Discharge Disposition: Home Social History Tobacco Use [...] Sign Reading Time Taken Comments Blood Pressure 106/66 04/10/2014 9:24 AM EST Pulse 64 04/10/2014 9:24 AM EST regular, radial Temperature - - Respiratory Rate - - Oxygen Saturation 99% 04/10/2014 9:2 4 AM EST Inhaled Oxygen Concentration - - Weight 94.1 kg (207 lb 8 oz) 04/10/2014 9:24 AM EST Height 185.4 cm (6' 1) 04/10/2014 9:24 AM EST Body Mass Index 27.38 04/10/2014 9:24 AM EST documented in this encounter Progress Notes * Raul Lopes, RN - 04/10/2014 9:17 AM EST Marquez Hendrix is a 63 y.o. male who presents today in the clinic for ICD follow-up. 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 He complains of some LLOYD since implant. First Assist: Kit Self MD PCP: ÁNGEL BINGHAM MD Final Parameters: Ventricular electrode: [place] Flashpoint [place] Model# 0292 Serial# [id number] ?? Bipolar, steroid-tipped, active-fixation, single coil DF-4 lead ?? Access: Left axillary vein ?? Location: RV apex ?? R wave, ICD: 9.6 mV ?? Pacing threshold, ICD: 0.6 V at 0.5 ms ?? Impedance, ICD: 913 ohms (74 ohms for shock vector) ?? Pace the diaphragm at 10 V: No Atrial electrode: [place] Flashpoint Dextrus Model# 4136 Serial# [id number] ?? Bipolar, steroid-tipped, active-fixation IS-1 lead ?? Access: Left axillary vein ?? Location Right atrial appendage ?? P wave, ICD: 4.3 mV ?? Pacing threshold, pacemaker: 1.7 V at 0.5 ms ?? Impedance, pacemaker: 538 ohms ?? Pace the diaphragm at 10 V: No Pulse generator: [place] [employer] Incepta Model# E162 Serial# [id number] DDDR ICD ?? Location: Subcutaneous Tachy settings: VF 220 bpm; ATP, 31j, 41j x 7 VT 180 bpm; Scan, 31j, 41j x 5 VT-1 155 bpm; Scan, RampScan, 0.9j, 11j, 41j x 3 Albaro settings: DDDR 55/130/130, Rythmiq enabled Atrial lead impedance: 628 ohms Right ventricular lead impedance: 505 ohms RV shock impedance: 83 ohms P wave: None measured by device despite clear evidence of SR @ 60-65 bpm on surface Lead II tracing R wave: 8.9 mV Atrial capture threshold: No capture seen at maximum output. Right ventricular capture threshold: 0.7 V at 0.4 ms Underlying rhythm: SR 60-65 bpm Heart rate histograms: Reasonable distribution Pacing percentages: AP 48%; SHIPYARD PAINTING SUPERVISOR 21% Mode switch episodes: None Monitored events: None Treated events: None Battery voltage: ANN Charge time: 9.7 sec 01/10/2014 Chest x-ray: X-ray today confirms atrial lead dislodgement Incision assessment: L chest no issues Impression: Atrial lead dislodgement confirmed by chest x-ray today. Device function otherwise normal with respect to the RV lead. No monitored nor treated events. Plan: MAXIMO Leija saw patient today. Patient has cellular enabled Latitude transmitter. Patient wishes to have atrial lead revised and will call EP scheduling when he knows when he can arrangea ride. Reprogramming: Vent output reduced to reflect measured threshold. Device reprogrammed VVI 50 ppm I have personally/independently reviewed and analyzed the data collected from the patients device. The device functioning ia abnormal given dislodgement and I agree with the plan. Lars Hernandez DO Cardiac Informatics Specialist Cardiac Electrophysiology Department [place], [place] ) Pager [phone]) documented in this encounter Plan of Treatment Upcoming Encounters Date Type Department Care Team (Late st Contact Info) Description 12/18/2023 10:00 AM EDT Hospital Encounter Non-[place] [address] Arrived documented as of this encounter Visit Diagnoses Diagnosis Sustained VT (ventricular tachycardia) Paroxysmal ventricular tachycardia documented in this encounter Care Teams Material Engineer Relationship Specialty Start Date End Date Ángel Bingham MD [facility] [address] [place] [address] PCP - General 01/31/14 09/01/16 documented as of this encounter
--- OUTSIDE RECORDS SUMMARY | 2023-11-03 01:28 | XMS_ITS | Encounter Summary ---
Author Organization [facility] Address [facility] [place] [address] Care Team Providers Care Carton Forming Machine Helper Name Role Phone Ángel Bingham MD Primary Care Provider [phone] Encounter Details Date Type Department Care Team (Late st Contact Info) Description 04/17/2014 10:30 AM EST - 04/17/2014 1:50 PM EST Surgery [place]rophys[place] [phone] Myrna Shepard MD [facility] [place] [address] ELECTROPHYSIOLOGY PROCEDURE Social History Tobacco Use Types Packs/Day Years [...] Sign Reading Time Taken Comments Blood Pressure 119/62 04/17/2014 1:20 PM EST Pulse 60 04/17/2014 1:20 PM EST Temperature 36.6 ??C (97.9 ??F) 04/17/2014 1:20 PM ES T Respiratory Rate 16 04/17/2014 1:20 PM EST Oxygen Saturation 96% 04/17/2014 1:20 PM EST Inhaled Oxygen Concentration - - Weight 93.9 kg (207 lb) 04/17/2014 9:59 AM EST Height 185.4 cm (6' 1) 04/17/2014 9:59 AM EST Body Mass Index 27.31 04/17/2014 9:59 AM EST documented in this encounter Discharge Summaries * Edy Torres PA - 04/18/2014 9:43 AM EST Discharge Summary Patient Name: Marquez Hendrix Patient Age: 63 y.o. Language: Brazilian Race: White Ethnicity: Not nor Admit date: 04/17/2014 Discharge date and time: 04/18/2014929 Attending Physician: Myrna Shepard MD Discharge Physician: Jake Shepard MD Follow-up Recommendations for Providers: S/p atrial lead replacement Scheduled for 90 day post implant follow up Inpatient Provider Contact Information: Cardiac Electrophysiology [phone] Discharge Diagnoses (Hospital Problems) and Secondary Diagnoses [...] Weight - Scale: 93.895 kg (207 lb) (04/17/14 0959) Functional and Cognitive Status: Fully functional; alert [...] Treatments: Atrial lead replacement Discharge Exam: Skin: [place], warm and dry HEENT: PERRLA, EOMI, no [...] electrode: Guidant Dextrus Model# 4126-53 cm Serial# [id number] ?? Bipolar, steroid-tipped, active-fixation IS-1 lead ?? Access: Axillary vein ?? Location Right atrial appendage Old Ventricular electrode: Aveksa Channahon Model# 0292 Serial# [id number] ?? Bipolar, steroid-tipped, active-fixation DF-4 lead ?? Access: Axillary vein ?? Location: Right ventricular apex Old Atrial electrode: Guidant Dextrus Model# 4136 Serial# [id number] ?? Bipolar, steroid-tipped, active-fixation IS-1 lead ?? Access: Axillary vein ?? Location Removed 04/17/2014 ?? Implanted: 01/10/2014 Pulse generator: Aveksa Incepta Model# E162 Serial# [id number] ?? DDDR ICD ?? Location: Subcutaneous DDDR [...] Cap Take by mouth daily. Generic drug: Edison-3 Fatty Acids Refills: 0 glipiZIDE 5 mg [...] by mouth daily. Generic drug: lactobac cmb #7-mpp-pyrldnwhkm Refills: 0 rosuvastatin 20 mg Tab Commonly known as: CRESTOR Take 20 mg by mouth daily. 20 mg Refills: 0 traMADol 50 mg Tab Commonly known as: ULTRAM Take 50 mg by mouth every 6 hours as needed for Pain. 50 mg Refills: 0 STOPPED Medications chlorhexidine 4 % Liqd Commonly known as: HIBICLEANALY Smoking Status at Discharge: History Smoking status [...] a 91 day new device check at [facility] Device [facility]. 4. Remote device follow [...] 07/18/2014 10:00 AM Raul Lopes RN Cardiology [phone] 07/18/2014 10:40 AM Kit Self MD Cardiology [phone] Joint Appt [facility] [phone] Discharge References/Attachments None documented in this encounter Discharge Instructions * Patient Instructions* Edy Torres PA - 04/18/2014 7:57 AM EST Final recommendations: 1. Standard post implant discharge instructions (see below): 2. Resume medications as listed. 3. You will be called to schedule a 91 day new device check at [facility]. 4. Remote device follow [...] times daily. 90 tablet 6 05/14/2013 01/27/2017 Edison-3 Fatty Acids (FISH OIL) 500 mg Cap Take by mouth daily. 01/14/2016 lamotrigine (LAMICTAL) 100 mg tablet Take 200 mg by mouth daily. 09/01/2018 alprazolam (XANAX XR) 3 mg 24 hr tablet Take 3 mg by mouth nightly. 09/18/2020 lactobac cmb #6-vxs-idqmakwcnx (PROBIOTIC & ACIDOPHILUS) 300-250 million cell-mg Cap [...] AM EST Office of Care Management Clinical Plumbing Instructor Patient Name: Marquez Hendrix : 1950, 63 yrs Admission Date: 04/17/2014 1:14 PM Attending: Myrna Shepard MD Order to Admit: Record reviewed and patient discussed with multidisciplinary team. Insurance: [employer]: Pt admitted for atrial lead replacement [...] electrode: Guidant Dextrus Model# 4126-53 cm Serial# [id number] ?? Bipolar, steroid-tipped, active-fixation IS-1 lead ?? Access: Axillary vein ?? Location Right atrial appendage Old Ventricular electrode: [employer] Channahon Model# 0292 Serial# [id number] ?? Bipolar, steroid-tipped, active-fixation DF-4 lead ?? Access: Axillary vein ?? Location: Right ventricular apex Old Atrial electrode: Guidant Dextrus Model# 4136 Serial# [id number] ?? Bipolar, steroid-tipped, active-fixation IS-1 lead ?? Access: Axillary vein ?? Location Removed 04/17/2014 ?? Implanted: 01/10/2014 Pulse generator: [employer] Scientific Incepta Model# E162 Serial# [id number] ?? DDDR ICD ?? Location: Subcutaneous DDDR [...] Outcome (s) achieved Date Met: 04/18/14 04/17/14194404/18/14 034 Safety Interventions Safety Precautions/Fall Reduction fall reduction [...] Outcome (s) achieved Date Met: 04/18/14 04/17/14 13504/17/14193504/18/14 0514 Discharge Needs Assessment Concerns to be [...] Outcome: Ongoing (Interventions Implemented as Appropriate) 04/17/14 19404/18/14 0344 Safety Interventions Safety Precautions/Fall Reduction fall [...] medication given as ordered. Remained on bedside campus monitor in [place], paced rhythm. Denies [...] Outcome: Ongoing (Interventions Implemented as Appropriate) 04/17/14 135 Coping/Psychosocial Response Interventions Plan of Care Reviewed with patient Plan of Care Review Plan of Care Outcome Status ongoing (interventions implemented as appropriate) Progress progress toward functional goals as expected OUTCOME EVALUATION NOTE: OUTCOME SUMMARY: Patient admitted to [facility] via bed from EP lab. Is alert [...] Mutuality Outcome: Ongoing (Interventions Implemented as Appropriate) 04/17/141352 Mutuality/Individual Preferences What anxieties, fears or concerns do you have about your health or care? some anxiety about coming into hospital What questions do you have about your health or care? none at this time-Dr. Shepard has answered them already Goal: Fall Prevention-Safe Patient Handling Outcome: Ongoing (Interventions Implemented as Appropriate) 04/17/14 1300 04/17/141352 Safety Interventions Safety Precautions/Fall Reduction -- environmental [...] Outcome: Ongoing (Interventions Implemented as Appropriate) 04/17/14 135 Safety Interventions Isolation Precautions standard precautions maintained Infection Prevention environmental surveillance Coping/Psychosocial Response Interventions Counseling goal setting facilitated Goal: Discharge Needs Assessment Outcome: Ongoing (Interventions Implemented as Appropriate) 04/17/14 135 Discharge Needs Assessment Concerns to be Addressed [...] AM EDT Hospital Encounter Non-[place] [address] Arrived documented as of this [...] POC Glucose 140 60 - 199 mg/dL [facility] Comment: Supplemental ranges: <140 mg/dL before meals [...] POC Glucose 126 60 - 199 mg/dL [facility] Comment: Supplemental ranges: <140 mg/dL before meals <180 mg/dL all other times of the day Blood specimen (specimen) 04/18/2014 3:32 AM EST 04/18/2014 3:32 AM EST Myrna Shepard MD POINT OF CARE TEST ORDERABLES Performing Organization Address [facility] Co de Phone Number [facility] * POCT Glucose (04/18/2014 12:08 AM EST) POC Glucose 113 60 - 199 mg/dL [facility] Comment: Supplemental ranges: <140 mg/dL before meals <180 mg/dL all other times of the day Blood specimen (specimen) 04/18/2014 12:08 AM EST 04/18/2014 12:08 AM EST Myrna Shepard MD POINT OF CARE TEST ORDERABLES Performing Organization Address [facility] Co de Phone Number [facility] * POCT Glucose (04/17/2014 9:53 PM EST) POC Glucose 120 60 - 199 mg/dL [facility] Comment: Supplemental ranges: <140 mg/dL before meals <180 mg/dL all other times of the day Blood specimen (specimen) 04/17/2014 9:53 PM EST 04/17/2014 9:53 PM EST Myrna Shepard MD POINT OF CARE TEST ORDERABLES Performing Organization Address [facility] Co de Phone Number [facility] * POCT Glucose (04/17/2014 8:03 PM EST) POC Glucose 169 60 - 199 mg/dL [facility] Comment: Supplemental ranges: <140 mg/dL before meals <180 mg/dL all other times of the day Blood specimen (specimen) 04/17/2014 8:03 PM EST 04/17/2014 8:03 PM EST Myrna Shepard MD POINT OF CARE TEST ORDERABLES Performing Organization Address [facility] Co de Phone Number [facility] * POCT Glucose (04/17/2014 5:23 PM EST) POC Glucose 155 60 - 199 mg/dL [facility] Comment: Supplemental ranges: <140 mg/dL before meals <180 mg/dL all other times of the day Blood specimen (specimen) 04/17/2014 5:23 PM EST 04/17/2014 5:23 PM EST Myrna Shepard MD POINT OF CARE TEST ORDERABLES Performing Organization Address [facility] Co de Phone Number [facility] * POCT Glucose (04/17/2014 2:11 PM EST) POC Glucose 130 60 - 199 mg/dL [facility] Comment: Supplemental ranges: <140 mg/dL before meals <180 mg/dL all other times of the day Blood specimen (specimen) 04/17/2014 2:11 PM EST 04/17/2014 2:11 PM EST Myrna Shepard MD POINT OF CARE TEST ORDERABLES Performing Organization Address [facility] Co de Phone Number [facility] * (ABNORMAL) Urinalysis with microscopic (04/17/2014 10:35 AM EST) Glucose UA Negative Negative mg/dL [facility] Protein UA Negative Negative mg/dL [facility] Bilirubin UA Negative Negative mg/dL [facility] Comment: Clinical correlation required for positive Urine Bilirubin results as false positive may occur with some drugs and drug related products. If a false positive is suspected a serum total bilirubin should be considered if clinically indicated. Urobilinogen UA Normal Normal mg/dL [facility] pH UA 5.0 5.0 - 8.0 [facility] Blood UA Negative Negative mg/dL [facility] Ketones UA Negative Negative mg/dL [facility] Nitrite UA Negative Negative [facility] Leukocytes UA Negative Negative mcL [facility] Appearance UA Clear Clear [facility] Spec Campbell UA 1.021 1.002 - 1.030 [facility] [...] In Lab Myrna Shepard MD URINE ORDERABLES [facility] * POCT Glucose (04/17/2014 10:09 AM EST) POC Glucose 153 60 - 199 mg/dL [facility] Comment: Supplemental ranges: <140 mg/dL before meals <180 mg/dL all other times of the day Blood specimen (specimen) 04/17/2014 10:09 AM EST 04/17/2014 10:09 AM EST Myrna Shepard MD POINT OF CARE TEST ORDERABLES Performing Organization Address [facility] Co de Phone Number [facility] documented in this encounter Visit Diagnoses Diagnosis Ventricular tachycardia Paroxysmal ventricular tachycardia Pacemaker lead malfunction, subsequent encounter documented in this encounter Administered Medications Inactive [...] to induce or maintain moderate sedation per [facility] Moderate Sedation Protocol, For use in the [...] to induce or maintain moderate sedation per [facility] Moderate Sedation Protocol, For use in the [...] Discontinued, Routine 1506 (Given - Provider: Ely Villalpando, RN) 0833 (Given - Provider: Jace Howard [...] bolus if needed.)1725 (Given - Provider: Ely Villalpando RN)2000 (Not Given - Provider: Tara Thompson RN [...] 0833 (Given - Provider: Jace Howard RN) magnesium oxide (MAG-OX) tablet 400 mg (CANCELED) 400 mg, Oral, DAILY, First dose on Thu04/18/14 at 0900, Until Discontinued, Routine 08 (Given - Provider: Jace Howard RN) metFORMIN (GLUCOPHAGE) tablet 1,000 mg (CANCELED) 1,000 mg, Oral, 2 TIMES DAILY WITH MEALS, First dose on Thu04/17/14 at 1700, Until Discontinued, Routine 1657 (Given - Provider: Ely Villalpando RN) 0833 [...] Routine 0045 (Given - Provider: Tara Thompson, RN) Continuous Medication Order 04/16/2014 04/17/2014 04/18/2014 sodium chloride 0.9% infusion (CANCELED) 75 mL/hr, Intravenous, CONTINUOUS, Starting on Thu04/17/14 at 1045, Until Thu04/17/14 at 1329, Day of Surgery (Day of Procedure) 1045 (Continued Bag - Provid er: Cheryle Adan RN - Comment: started in SDP)1300 (Stopped - Provider: Ely Villalpando, NAHUN) PRN Medication Order 04/16/2014 04/17/2014 04/18/2014 fentaNYL 50mcg/mL injection (CANCELED) 25-50 mcg, Intravenous, EVERY 5 MIN PRN, Starting on Thu04/17/14 at 1019, Until Thu04/17/14 at 1300, Pain, As needed to induce or maintain moderate sedation per [facility] Moderate Sedation Protocol, For use in the [...] to induce or maintain moderate sedation per [facility] Moderate Sedation Protocol, For use in the [...] Oral, EVERY 4 HOURS PRN, Starting on 04/17/14 at 1329, Until Thu04/18/14 at 1419, Pain, Maximum dose of acetaminophen is 4000 mg from all sources in 24 hours. PRN for pain NOT relieved by ultram, Routine 1451 (Given - Provider: Ely Villalpando, RN)1845 (Given - Provider: Ely Villalpando, RN)2301 (Given - Provider: Tara Thompson, RN) 0333 (Given - Provider: Tara Thompson, RN)0736 (Given - Provider: Jace Howard, RN) documented in this encounter Care Teams Carton Forming Machine Helper Relationship Specialty Start Date End Date Ángel Bingham MD [facility] [address] [facility] [place] [address] PCP - General 01/31/14 09/01/16 documented as of this encounter
--- OUTSIDE RECORDS SUMMARY | 2023-11-03 01:28 | XMS_ITS | Encounter Summary ---
[place] [address] Care Team Providers Care Body Team Member Name Role Phone Ángel Bingham MD Primary Care Provider [phone] Encounter Details Date Type Department Care Team (Late st Contact Info) Description 07/18/2014 Orders Only Cardiology at [address] [phone] Social History Tobacco Use Types Packs/Day Years [...] AM EDT Hospital Encounter Non-Invasive [place] [address] Arrived documented as of this encounter Procedures Procedure Name Priority Date/Time Associated Diagnosis Comments CARDIAC DEVICE CHECK - IN CLINIC Routine 07/18/2014 10:00 AM EDT documented in this encounter Results * Cardiac device check - In Clinic (07/18/2014 10:00 AM EDT) Date Time Interrogation Session [id number] IDCO Type Interrogation Session In Clinic IDCO Clinic Name [facility] IDCO Battery Date Time of Measurements [id number] IDCO Battery Status Beginning of Service IDCO [...] IDCO Episode Statistic Recent Date Time End 20140718 IDCO Episode Statistic Type Category VT IDCO Episode Statistic Vendor Type Category VT IDCO Episode Statistic Recent Count 0 IDCO Episode Statistic Recent Date Time Start 20140418 IDCO Episode Statistic Recent Date Time End 20140718 IDCO Episode Statistic Type Category VT IDCO Episode Statistic Vendor Type Category VT-1 IDCO Episode Statistic Recent Count 0 IDCO Episode Statistic Recent Date Time Start 20140418 IDCO Episode Statistic Recent Date Time End 20140718 IDCO Episode Statistic Type Category Monitor IDCO Episode Statistic Vendor Type Category IDCO Episode Statistic Recent Count 0 IDCO Episode Statistic Recent Date Time Start 20140418 IDCO Episode Statistic Recent Date Time End 20140718 IDCO Episode Statistic Type Category Other IDCO Episode Statistic Vendor Type Category IDCO Episode Statistic Recent Count 0 IDCO Episode Statistic Recent Date Time Start 20140418 IDCO Episode Statistic Recent Date Time End 20140718 IDCO Episode Statistic Type Category VT IDCO Episode Statistic Vendor Type Category NSVT IDCO Episode Statistic Recent Count 1 IDCO Episode Statistic Recent Date Time Start 20140418 IDCO Episode Statistic Recent Date Time End 20140718 IDCO Episode Statistic Type Category AT/AF IDCO Episode Statistic Vendor Type Category ATR IDCO Episode Statistic Recent Count 9 IDCO Episode Statistic Recent Date Time Start 20140418 IDCO Episode Statistic Recent Date Time End 20140718 IDCO Albaro Setting AT Mode Switch Mode [...] E162 IDCO Implantable Pulse Generator Serial Number [id number] IDCO Implantable Pulse Generator Subsurface Augmentee Operator [employer] IDCO Implantable Pulse Generator Implant Date 20140110 IDCO Implantable Lead Model 4136 IDCO Implantable Lead Serial Number [id number] IDCO Implantable Lead Subsurface Augmentee Operator Guiddelio IDCO Implantable Lead Implant Date 20130421 IDCO Implantable Lead Polarity Type Bipolar Lead IDCO Implantable Lead Location Right Atrium IDCO Implantable Lead Model 0292 IDCO Implantable Lead Serial Number [id number] IDCO Implantable Lead Subsurface Augmentee Operator [employer] IDCO Implantable Lead Implant Date IDCO Implantable Lead Location Right Ventricle IDCO Lead Channel Measurements Date and Time Start 20140718 IDCO Lead Channel Sensing Intrinsic Amplitude Mean 5.2 mV IDCO Lead Channel Sensing Polarity Bipolar IDCO Lead Channel Pacing Threshold Amplitude 0.6 V IDCO Lead Channel Pacing Threshold Pulse Width 0.5 ms IDCO Lead Channel Pacing Threshold Measurement Method Squirrel Worker Manual IDCO Lead Channel Pacing Threshold Polarity Bipolar IDCO Lead Channel Impedance Value 666 ohms IDCO Lead Channel Impedance Polarity Bipolar IDCO Lead Channel Measurements Date and Time Start 20140718 IDCO Lead Channel Sensing Intrinsic Amplitude Mean 12.4 mV IDCO Lead Channel Sensing Polarity Bipolar IDCO Lead Channel Pacing Threshold Amplitude 0.6 V IDCO Lead Channel Pacing Threshold Pulse Width 0.5 ms IDCO Lead Channel Pacing Threshold Measurement Method Squirrel Worker Manual IDCO Lead Channel Pacing Threshold Polarity Bipolar IDCO Lead Channel Impedance Value 577 ohms IDCO Lead Channel Impedance Polarity Bipolar IDCO Lead High Voltage Channel Date Time 20140718 IDCO Lead High Voltage Channel Impedance 88 ohms IDCO Lead High Voltage Channel Measurement Type Low Voltage Pulse IDCO Statistic Date Time Start 20140418 IDCO Statistic Date Time End [id number] IDCO Albaro Statistic Date Time Start 20140418 IDCO Albaro Statistic Date Time End 20140718 IDCO Albaro Statistic RA Percent Paced 10 % IDCO Albaro Statistic RV Percent Paced 1 % IDCO Atrial Tachy Statistic Date Time Start 20140419 IDCO Atrial Tachy Statistic Date Time End 20140717 IDCO Atrial Tachy Statistic AT/AF [place] Percent 1 % IDCO Therapy Statistic Recent Date Time Start 20140418 IDCO Therapy Statistic Recent Date Time End 20140718 IDCO Therapy Statistic Recent Shocks Delivered 0 IDCO Therapy Statistic Total Date Time Start 20140110 IDCO Therapy Statistic Total Date Time End 20140718 IDCO Therapy Statistic Total Shocks Delivered 2 IDCO Therapy Statistic Recent Shocks Aborted 0 IDCO Therapy Statistic Total Shocks Aborted 0 IDCO Therapy Statistic Recent ATP Delivered 0 IDCO Therapy Statistic Total ATP Delivered 1 IDCO Anatomical Region Laterality Modality Other 07/18/2014 10:0 0 AM EDT Physician Cardiology IMPLANTABLE CARD IAC DEVICE documented in this encounter Visit Diagnoses Not on filedocumented in this encounter Care Teams Body Team Member Relationship Specialty Start Date End Date Ángel Bingham MD [facility] [address] [place] [address] PCP - General 01/31/14 09/01/16 documented as of this encounter
--- OUTSIDE RECORDS SUMMARY | 2023-11-03 01:28 | XMS_ITS | Encounter Summary ---
Author Organization [facility] Address [facility] [place] [address] Care Team Providers Care Tube Sorter Name Role Phone Ángel Bingham MD Primary Care Provider [phone] Reason for Visit * Reason Comments Pacemaker Problem Encounter Details Date Type Department Care Team (Late st Contact Info) Description 04/10/2014 10:40 AM EST Follow-Up Cardiology at [address] [phone] Edy Torres PA [facility] [place] [address] Atrial pacemaker lead displacement, initial encounter Discharge Disposition: Home Social History Tobacco Use [...] Time Taken Comments Blood Pressure 106/66 04/10/2014 10:29 AM EST Pulse 64 04/10/2014 10:29 AM EST Temperature - - Respiratory Rate - - Oxygen Saturation 99% 04/10/2014 10:29 AM EST Inhaled Oxygen Concentration - - Weight 94.1 kg (207 lb 8 oz) 04/10/2014 10:29 AM EST Height 185.4 cm (6' 1) 04/10/2014 10:29 AM EST Body Mass Index 27.38 04/10/2014 10:29 AM EST documented in this encounter Patient Instructions * Patient Instructions* Edy Torres PA - 04/10/2014 10:44 AM EST Will schedule for atrial lead repositioning/replacement(needs to coordinate schedule: Please call EP scheduling at [phone] documented in this encounter Progress Notes * Edy Torres PA - 04/10/2014 11:04 AM EST Images from the original note were not included. Subjective: Patient ID: Marquez Hendrix is a 63 y.o. male. HPI Asked by Raul Lopes RN to evaluate Mr Hendrix who presented for ICD follow up after 01/10/2014 dualchamber [employer] ICD implant and was found to have irregularity in atrial lead sensing andpacing. No reliable pacing could be obtained and there was frequent undersensing of P waves in sinus rhythm. Mr Hendrix had sustained VT prior to implant and was easily inducible for VT at EPS. He had a trendto bradycardia and a is quite physically active, so a dual chamber device was implanted to maintainAV synchrony. He has not received any ICD therapies. Patient Active Problem List Diagnosis Code ??? [...] V45.02 ??? Atrial pacemaker lead displacement 996.01 Review of Systems Constitutional: Negative for fever, chills, diaphoresis and fatigue. Respiratory: Positive for shortness of breath. Negative for cough, chest tightness and stridor. Cardiovascular: Negative for chest pain, palpitations and leg swelling. Gastrointestinal: Negative for nausea, vomiting and diarrhea. Genitourinary: Negative for dysuria, frequency and hematuria. Neurological: Negative for dizziness, syncope and light-headedness. Current Outpatient Rx Name Route Sig Dispense Refill ??? exenatide (BYETTA) 10 mcg/dose(250 mcg/mL) 2.4 mL Pen Injector Subcutaneous Inject 10 mcg subcutaneously 2 times daily (with meals). ??? traMADol (ULTRAM) 50 mg Tablet Oral Take 50 mg by mouth every 6 hours as needed for Pain. ??? betaxolol (KERLONE) 10 mg Tablet Oral Take 1 tablet by mouth daily. 30 tablet 11 ??? oxyCODONE-acetaminophen (PERCOCET) 5-325 mg Tablet Oral Take 1 tablet by mouth every 4 hours as needed for Pain. Do not take with Xanax or ambien. Do not take with alcohol. Do not drive while you are taking oxycodone 15 tablet 0 ??? lisinopril (PRINIVIL;ZESTRIL) 20 mg Tablet Oral Take 1 tablet by mouth daily. 30 tablet 12 ??? magnesium oxide (MAG-OX) 400 mg Tablet Oral Take 1 tablet by mouth daily. 30 tablet 12 ??? aspirin 81 mg EC tablet Oral Take 1 tablet by mouth daily. 90 tablet 3 ??? rosuvastatin (CRESTOR) 20 mg tablet Oral Take 20 mg by mouth daily. ??? zolpidem (AMBIEN) 10 mg tablet Oral Take 10 mg by mouth nightly as needed. ??? clopidogrel (PLAVIX) 75 mg tablet Oral Take 1 tablet by mouth daily. 30 tablet 11 ??? pantoprazole (PROTONIX) 40 mg tablet Oral Take 1 tablet by mouth 2 times daily. 90 tablet 6 ??? [place]-3 Fatty Acids (FISH OIL) 500 mg Cap Oral Take by mouth daily. ??? multivitamin capsule Oral Take 1 capsule by mouth daily. ??? LANCETS MISC Misc.(Non-Drug; Combo Route) by Misc.(Non-Drug; Combo Route) route. ??? lamotrigine (LAMICTAL) 100 mg tablet Oral Take 100 mg by mouth daily. ??? alprazolam (XANAX XR) 3 mg 24 hr tablet Oral Take 3 mg by mouth every morning. ? ? lactobac cmb #[id number] (PROBIOTIC & ACIDOPHILUS) 300-250 million cell- mg Cap Oral Take by mouth daily. ??? metformin (GLUCOPHAGE) 1,000 mg tablet Oral Take 1,000 mg by mouth 2 times daily (with meals). ??? hydrOXYzine (ATARAX) 25 mg tablet Oral Take 25 mg by mouth 3 times daily as needed. ??? glipizide (GLUCOTROL) 5 mg 24 hr tablet Oral Take 5 mg by mouth daily. ??? nitroGLYcerin (NITROSTAT) 0.4 mg SL tablet Sublingual Place 0.4 mg under the tongue every 5 minutes as needed. Objective: Physical Exam Constitutional: He is oriented to person, place, and time. No distress. Neck: No JVD present. Pulmonary/Chest: Effort normal. Well healed left prepectoral implant site Abdominal: Soft. There is no tenderness. Musculoskeletal: Normal range of motion. He exhibits no edema. Neurological: He is alert and oriented to person, place, and time. Skin: Skin is warm and dry. He is not diaphoretic. Vitals reviewed. Device Data: Ventricular electrode: [employer] [place] Model# 0292 Serial# [id number] ?? Bipolar, steroid-tipped, active-fixation, single coil DF-4 lead ?? Access: Left axillary vein ?? Location: RV apex Atrial electrode: [employer] Dextrus Model# 4136 Serial# [id number] ?? Bipolar, steroid-tipped, active-fixation IS-1 lead ?? Access: Left axillary vein ?? Location Right atrial appendage Pulse generator: [employer] Incepta Model# E162 Serial# [id number] DDDR ICD ?? Location: Subcutaneous Defibrillation testing was performed with the RV positive (reversed polarity), at an AGC sensitivity of 1.0 mV. A 1.1 J T wave shock, delivered 310 ms after 8 S1s at 400 ms, induced VF. The second shock of 22 J terminated VF after 22 seconds total duration (11 J ineffective, delivered after 15 seconds due to programmed delay). There was minimal if any undersensing. SEE SEPARATE DEVICE INTERROGATION NOTE TODAY Atrial lead undersensing Unable to obtain atrial capture at maximum output CXR today reveals displaced atrial lead distally compared to post implant CXR. Limited slack on ventricular lead. Assessment and Plan: 63yo man with hx MMVT s/p dual chamber BSI ICD implant 01/10/2014 now with evidence of atrial lead dislodgement. Plan atrial lead replacement for atrial lead dislodgement after 01/10/2014 implant. Ventricular leadmay benefit from increased slack. Moderate sedation is acceptable. Dr. Berry preferred if possible. Hold plavix and metformin AM of procedure. Issued Hibiclens. Mr. Hendrix drove himself to the hospital today and did not anticipate requiring a procedure. He reports he will need to coordinate transportation with his daughter for a procedure. Will ask EP schedulers to arrange procedural scheduling. I have given Mr. Hendrix the contact numbers for EP scheduling. This should be performed soon. Sedation evaluation: Mallampati Class: II ASA Classification: III Mallampati Class: The Mallampati scoring system is used to evaluate the airway and determine the anticipated difficulties that may occur with endotracheal intubation. In class I patients, the soft palate, fauces, tonsillar pillars (anterior and posterior) and uvula can be seen. In class II, the same structures can be seen except that the tonsillar pillars are blocked by the tongue. In class III, only the base of the uvula can be seen. In class IV, none of the structures can be seen. Class III and IV patients may pose significant problems during endotracheal intubation. ASA Physical Status Classification: Class I: Normally healthy patient Class II: Patient with mild systemic disease ClassIII: Patient with severe systemic disease Class IV: Patient with severe systemic disease that is a constant threat to life Class V: Moribund patient who is not expected to survive without the operation Provider: MAXIMO Leija Provider#: [id number] Consult attending physician: Vamshi Hernandez MD documented in this encounter H&P Notes * Edy Torres PA - 04/10/2014 11:28 AM EST See progress note. documented in this encounter Plan of Treatment Upcoming Encounters Date Type Department Care Team (Late st Contact Info) Description 12/18/2023 10:00 AM EDT Hospital Encounter Non-Invasive [place] [address] Arrived documented as of this encounter Visit Diagnoses Diagnosis Atrial pacemaker lead displacement, initial encounter documented in this encounter Care Teams Tube Sorter Relationship Specialty Start Date End Date Ángel Bingham MD [facility] [address] [place] [address] PCP - General 01/31/14 09/01/16 documented as of this encounter
--- OUTSIDE RECORDS SUMMARY | 2023-11-03 01:28 | XMS_ITS | Encounter Summary ---
Author Organization [facility] [place] [address] Care Team Providers Care Nursing Service Director Name Role Phone Ángel Bingham MD Primary Care Provider [phone] Reason for Visit * Reason Comments Cardiomyopathy ICD check Encounter Details Date Type Department Care Team (Late st Contact Info) Description 07/18/2014 10:00 AM EDT Office Visit Cardiology at [address] [phone] Trena Carlisle RN Sustained VT (ventricular tachycardia) Social History [...] Sign Reading Time Taken Comments Blood Pressure 122/72 07/18/2014 9:39 AM EDT Pulse 67 07/18/2014 9:39 AM EDT Temperature - - Respiratory Rate - - Oxygen Saturation 99% 07/18/2014 9:39 AM EDT Inhaled Oxygen Concentration - - Weight 95.3 kg (210 lb) 07/18/2014 9:39 AM EDT Height 185.4 cm (6' 1) 07/18/2014 9:39 AM EDT Body Mass Index 27.71 07/18/2014 9:39 AM EDT documented in this encounter Progress Notes * Trena Lima - 07/18/2014 9:54 AM EDT Marquez Hendrix is a 64 y.o. male who presents today in the clinic for ICD follow-up. 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 On 04/17/2014 he underwent an atrial lead revision for lead dislodgement. Since the revision he denies complaints with the exception of being under stress. He is seeing Dr. Self in clinic today as well. Equipment Monitor Phototypesetting: Kit Self MD PCP: ÁNGEL BINGHAM MD Final Parameters: New Atrial electrode: [employer] Dextrus Model# 4126-53 cm Serial# [id number] ?? Bipolar, steroid-tipped, active-fixation IS-1 lead ?? [...] at 10 V: No Old Ventricular electrode: [place] [employer] [place] Model# 0292 Serial# [id number] ?? Bipolar, steroid-tipped, active-fixation DF-4 lead ?? [...] Atrial electrode: [employer] Dextrus Model# 4136 Serial# [id number] ?? Bipolar, steroid-tipped, active-fixation IS-1 lead ?? Access: Axillary vein ?? Location Removed 04/17/2014 ?? Implanted: 01/10/2014 Pulse generator: [employer] Incepta Model# E162 Serial# [id number] ?? DDDR ICD ?? Location: Subcutaneous Tachy settings: VF 220 bpm; ATP, 31j, 41j x 7 VT 180 bpm; Scan, 31j, 41j x 5 VT-1 155 bpm; Scan, RampScan, 0.9j, 11j, 41j x 3 [place]baro settings: DDDR 55/130/130, Rythmiq enabled Atrial lead impedance: 666 ohms Right ventricular lead impedance: 577 ohms RV shock impedance: 88 ohms P wave: 5.2 mV R wave: 12.4 mV Atrial capture threshold: 0.6 V @ 0.4 ms Right ventricular capture threshold: 0.7 V at 0.4 ms Underlying rhythm: SR 60-65 bpm Heart rate histograms: Reasonable distribution Pacing percentages: AP 10%; FIELD SERVICE SPECIALIST <1% Mode switch episodes: 9 episodes for 1% burden since lead revision on 04/17/14. 7 lasting for <1minute and 2 lasting for 1 hour-<24 hours. EGMs and rates suggest Atrial flutter with ventricular rates in the 80's. Patient does not recall these events and states the long lasting episodes most likely occurred while he was in [place] for his sisters and was under stress. Monitored events: 1 episode on 05/15/14. EGM suggests brief NSVT for 4 beats duration Treated events: None Battery voltage: ANN, 10.5 years remaining Charge time: 9.9 sec 07/11/14 Chest x-ray: ok day post atrial lead revision (patient states he had another xray done at [facility] while he was there per his request recently and they said it looked good) Incision assessment: L chest no issues I have reviewed the programming printouts, and the device is functioning normally. Impression: EGM evidence of atrial flutter and fib (21.5 minute episode) and non-EGM recording of episodes > 1 hour but < 24 hours. He's on ASA/Plavix, post JON 05/03. [id number] score is 4 (age, DM, HTN, CAD). Plan: Latitude 3 mos, RTC 6 mos. Consider anticoagulation if AT/AF continues. Reprogramming: atrial pacing output decreased based upon threshold obtained in clinic today. Edy Berry MD documented in this encounter Plan of Treatment Upcoming Encounters Date Type Department Care Team (Late st Contact Info) Description 12/18/2023 10:00 AM EDT Hospital Encounter [place] [address] Arrived documented as of this encounter Visit Diagnoses Diagnosis Sustained VT (ventricular tachycardia) Paroxysmal ventricular tachycardia documented in this encounter Care Teams Nursing Service Director Relationship Specialty Start Date End Date Ángel Bingham MD [facility] [address] [place] [address] PCP - General 01/31/14 09/01/16 documented as of this encounter
--- OUTSIDE RECORDS SUMMARY | 2023-11-03 01:28 | XMS_ITS | Encounter Summary ---
Author Organization [facility] Address [facility] [place] [address] Care Team Providers Care Montessori Toddler Teacher Name Role Phone Ángel Bingham MD Primary Care Provider [phone] Encounter Details Date Type Department Care Team (Late st Contact Info) Description 07/18/2014 10:40 AM EDT Follow-Up Cardiology at [address] [phone] Kit Self MD [facility] [place] [address] Typical atrial flutter; CAD (coronary artery disease); Ventricular tachycardia Discharge Disposition: Home Social History [...] Time Taken Comments Blood Pressure 122/72 07/18/2014 9:54 AM EDT Pulse 67 07/18/2014 9:54 AM EDT Temperature - - Respiratory Rate - - Oxygen Saturation 99% 07/18/2014 9:54 AM EDT Inhaled Oxygen Concentration - - Weight 95.3 kg (210 lb) 07/18/2014 9:54 AM EDT Height 185.4 cm (6' 1) 07/18/2014 9:54 AM EDT Body Mass Index 27.71 07/18/2014 9:54 AM EDT documented in this encounter Progress Notes * Kit Self MD - 07/18/2014 10:44 AM EDT Images from the original note were not included. [facility] [place] [address] [place] [address] CARDIOLOGY OUTPATIENT FOLLOW-UP NOTE Marquez Hendrix [id number] PCP: ÁNGEL BINGHAM MD 07/18/2014 PRIMARY CARE PROVIDER: ÁNGEL BINGHAM MD PROBLEM LIST: Patient Active Problem List Diagnosis ??? ASCVD (arteriosclerotic cardiovascular disease) ?? Heart catheterization in [facility] in 2007 with placement of a stent in an unspecified vessel ?? Repeat heart catheterization in 2008 with placement of stents to both the LAD and circumflex ?? Followup heart catheterization in 2008 showing stable results in both vessels ?? Her current chest discomfort in a somewhat atypical pattern beginning fall ?? Nuclear stress test at [facility] in [place], [place] May 02, 2013 during which he developed left shoulder and arm discomfort during submaximal exercise on the treadmill and after which he was converted to a pharmacologic test; nuclear imaging showed ejection fraction of 45% with a partially reversible inferior defect ?? Cath [facility] [place] [place] 05/13/2013: normal left main, mild diffuse disease throughout the LAD with an 80% mid stenosis representing a restenosis lesion, mild diffuse disease in the proximal obtuse marginal branch, and mild diffuse disease throughout the right coronary artery; status post 3.0 X 12 mm JON to 80%mid-LAD lesion (in-stent restenosis) ?? Heart catheterization [facility] [place] [place] January 06, 2014 showing normal left main, [...] 80 (documented on ICD interrogation 07/18/14) ?? [id number] score = 3 ?? Patient initially reluctant to be anticoagulated as recommended ??? Atrial pacemaker lead displacement New finding at office follow up 04/10/2014 Plan lead reposition/replacement ??? ICD (implantable cardioverter-defibrillator), dual, in situ New Atrial electrode: [employer] Dextrus Model# 4126-53 cm Serial# [id number] ?? Bipolar, steroid-tipped, active-fixation IS-1 lead ?? [...] at 10 V: No Old Ventricular electrode: [employer] [place] Model# 0292 Serial# [id number] ?? Bipolar, steroid-tipped, active-fixation DF-4 lead ?? [...] Atrial electrode: [employer] Dextrus Model# 4136 Serial# [id number] ?? Bipolar, steroid-tipped, active-fixation IS-1 lead ?? Access: Axillary vein ?? Location Removed 04/17/2014 ?? Implanted: 01/10/2014 Pulse generator: [place] [employer] Incepta Model# E162 Serial# [id number] ?? DDDR ICD ?? Location: Subcutaneous The [...] Outpatient Prescriptions Medication Sig Dispense Refill ??? exenatide (BYETTA) 10 mcg/dose(250 mcg/mL) 2.4 mL Pen Injector Inject 10 mcg subcutaneously 2 times daily (with meals). ??? traMADol (ULTRAM) 50 mg Tablet Take 50 mg by mouth every 6 hours as needed for Pain. ??? betaxolol (KERLONE) 10 mg Tablet Take 1 tablet by mouth daily. 30 tablet 11 ??? lisinopril (PRINIVIL;ZESTRIL) 20 mg Tablet Take 1 tablet by mouth daily. 30 tablet 12 ??? magnesium oxide (MAG-OX) 400 mg Tablet Take 1 tablet by mouth daily. 30 tablet 12 ??? aspirin 81 mg EC tablet Take 1 tablet by mouth daily. 90 tablet 3 ??? rosuvastatin (CRESTOR) 20 mg tablet Take 10 mg by mouth daily. ??? zolpidem (AMBIEN) 10 mg tablet Take 10 mg by mouth nightly as needed. ??? clopidogrel (PLAVIX) 75 mg tablet Take 1 tablet by mouth daily. 30 tablet 11 ??? pantoprazole (PROTONIX) 40 mg tablet Take 1 tablet by mouth 2 times daily. 90 tablet 6 ??? [place]-3 Fatty Acids (FISH OIL) 500 mg Cap Take by mouth daily. ??? multivitamin capsule Take 1 capsule by mouth daily. ??? LANCETS MISC by Misc.(Non-Drug; Combo Route) route. ??? lamotrigine (LAMICTAL) 100 mg tablet Take 100 mg by mouth daily. ??? alprazolam (XANAX XR) 3 mg 24 hr tablet Take 3 mg by mouth as needed. ? ? lactobac cmb #2-[id number]-[id number] (PROBIOTIC & ACIDOPHILUS) 300-250 million cell- mg Cap Take by mouth daily. ??? metformin (GLUCOPHAGE) [...] No current facility-administered medications for this visit. VITAL SIGNS: BP 122/72 Pulse 67 Ht 185.4 cm (6' 1) Wt 95.255 kg (210 lb) BMI 27.71 kg/m2 SpO2 99% SUBJECTIVE: This 64-year-old man comes for follow-up visit. He has known coronary artery disease and has undergone stenting in [place] and has twice undergone heart catheterization at [facility] [place] [place], the first of which was in April 2013 at which time he was found to have an 80% mid LAD stenosis which was treated with a drug-eluting stent, and again in December 2013 at which time he had a 50% mid LAD stenosis and an occluded distal RCA with bridging collaterals. No intervention took place with this second procedure. He has a history of sustained ventricular tachycardia and received an ICD in December 2013. He comes for a routine follow-up visit today and says that he feels generally okay. He does report occasional somewhat focal dull discomfort in 2 locations on his chest. This tends to occur while he is at rest, sometimes when stressed, and last for a while. His symptoms are not exertional.. He has been dealing with a lot of stress. His sister on June 02, 2014. He admits that he is not very active. Of particular interest, his ICD interrogation earlier today showed that he had an episode of atrialflutter with a ventricular rate in the 80s on June 08, 2014 which lasted almost 24 hours. This was asymptomatic. In regard to this, he has had no unexplained neurologic symptoms and has no history of stroke or TIA. OBJECTIVE: Physical Exam: On examination today he appeared in no acute distress. His blood pressure and pulse were 122/72 and 67 respectively. He had no JVD. His lungs were clear. His heart exam revealed a regular rhythm with no murmurs, rubs, or gallops. His abdomen was soft and nontender. He had no peripheral edema. DIAGNOSES: 1. Coronary artery disease 2. Sustained ventricular tachycardia 3. Atrial flutter with [id number] score of 3 DISCUSSION: He is doing only marginally. He is not having any symptoms particular suggestive of ischemia and his reported focal discomfort does not sound cardiac. We reviewed this. I recommended a conservative approach. In terms of his ventricle tachycardia he seems to be doing fine and is reporting no symptoms on hiscurrent beta costa. Finally, we discussed his atrial flutter. He should truly be considered for anticoagulation and I recommended this. We discussed the possibility of using either warfarin or one of the abdominal lesions. He has a lot of concerns about this, particularly in relationship to the cost of such therapy and the need for blood tests. He indicated that he was up appeared to go ahead with this now but wouldbe willing to give it some thought. I let him know that I would pass on this information to his primary care physician, Ángel Bingham M.D.) PLAN: 1. Continue current medications for now 2. Strongly consider anticoagulation for sustained atrial flutter and elevated [id number] score 3. Cardiology follow-up with pacemaker interrogation in 6 months documented in this encounter Plan of Treatment Upcoming Encounters Date Type Department Care Team (Late st Contact Info) Description 12/18/2023 10:00 AM EDT Hospital Encounter Non-[place] [address] Arrived documented as of this encounter Visit Diagnoses Diagnosis Typical atrial flutter Atrial flutter CAD (coronary artery disease) Coronary atherosclerosis of unspecified type of vessel, comanche or graft Ventricular tachycardia Paroxysmal ventricular tachycardia documented in this encounter Care Teams Montessori Toddler Teacher Relationship Specialty Start Date End Date Ángel Bingham MD [facility] [address] [place] [address] PCP - General 01/31/14 09/01/16 documented as of this encounter
--- OUTSIDE RECORDS SUMMARY | 2023-11-03 01:28 | XMS_ITS | Encounter Summary ---
[place] [address] Care Team Providers Care Preparation Operator Name Role Phone Ángel Bingham MD Primary Care Provider Encounter Details Date Type Department Care Team (Late st Contact Info) Description 07/18/2014 Orders Only Cardiology at [address] [phone] Social History Tobacco Use Types Packs/Day Years [...] AM EDT Hospital Encounter [place] [address] Arrived documented as of this encounter Procedures Procedure Name Priority Date/Time Associated Diagnosis Comments CARDIAC DEVICE CHECK - REMOTE SCHEDULED Routine 07/18/2014 12:41 AM EDT documented in this encounter Results * Cardiac device check - Remote Scheduled (07/18/2014 12:41 AM EDT) Date Time Interrogation Session [id number] IDCO Type Interrogation Session Remote Scheduled IDCO Clinic Name [facility] IDCO Battery Date Time of Measurements [id number] IDCO Battery Status Beginning of Service IDCO Battery Remaining Longevity 126 mo IDCO Battery Remaining Percentage 100 % IDCO Capacitor Last Charge Date Time [id number] IDCO Capacitor Charge Time 9.9 s IDCO Capacitor Charge Type Reformation IDCO Episode Identifier APM-4 IDCO Episode Date Time [id number] IDCO Episode Type Category Periodic EGM IDCO Episode Vendor Type Category APMRT IDCO Episode Detection And Therapy Details Presenting EGM IDCO Episode Identifier [id number]-[id number] IDCO Episode Date Time [id number] IDCO Episode Type Category Other IDCO Episode Vendor Type Category XANDER IDCO Episode Detection Interval Ventricular 1,053 ms IDCO Episode Duration 63 s IDCO Episode Detection And Therapy Details IDCO Episode Identifier DC IDCO Episode Date Time [id number] IDCO Episode Type Category Other IDCO Episode Vendor Type Category XANDER IDCO Episode Detection Interval Ventricular 1,000 ms IDCO Episode Duration 60 s IDCO Episode Detection And Therapy Details IDCO Episode Identifier DC IDCO Episode Date Time [id number] IDCO Episode Type Category Other IDCO Episode Vendor Type Category XANDER IDCO Episode Detection Interval Ventricular 1,000 ms IDCO Episode Duration 60 s IDCO Episode Detection And Therapy Details IDCO Episode Identifier IDCO Episode Date Time [id number] IDCO Episode Type Category Other IDCO Episode Vendor Type Category XANDER IDCO Episode Detection Interval Ventricular 952 ms IDCO Episode Duration 57 s IDCO Episode Detection And Therapy Details IDCO Episode Identifier IDCO Episode Date Time [id number] IDCO Episode Type Category Other IDCO Episode Vendor Type Category XANDER IDCO Episode Detection Interval Ventricular 968 ms IDCO Episode Duration 58 s IDCO Episode Detection And Therapy Details IDCO Episode Identifier IDCO Episode Date Time [id number] IDCO Episode Type Category Other IDCO Episode Vendor Type Category XANDER IDCO Episode Detection Interval Ventricular 1,091 ms IDCO Episode Duration 53 s IDCO Episode Detection And Therapy Details IDCO Episode Identifier DC IDCO Episode Date Time [id number] IDCO Episode Type Category Other IDCO Episode Vendor Type Category XANDER IDCO Episode Detection Interval Ventricular 1,071 ms IDCO Episode Duration 44 s IDCO Episode Detection And Therapy Details [facility] IDCO Episode Identifier [facility]-8786 IDCO Episode Date Time [id number] IDCO Episode Type Category Other IDCO Episode Vendor Type Category XANDER IDCO Episode Detection Interval Ventricular 1,053 ms IDCO Episode Duration 63 s IDCO Episode Detection And Therapy Details [facility] IDCO Episode Identifier [facility]-8785 IDCO Episode Date Time [id number] IDCO Episode Type Category Other IDCO Episode Vendor Type Category XANDER IDCO Episode Detection Interval Ventricular 1,053 ms IDCO Episode Duration 56 s IDCO Episode Detection And Therapy Details [facility] IDCO Episode Identifier [facility]-8784 IDCO Episode Date Time [id number] IDCO Episode Type Category Other IDCO Episode Vendor Type Category XANDER IDCO Episode Detection Interval Ventricular 822 ms IDCO Episode Duration 49 s IDCO Episode Detection And Therapy Details [facility] IDCO Episode Identifier ATR-10 IDCO Episode Date Time [id number] IDCO Episode Type Category AT/AF IDCO Episode Vendor Type Category ATR IDCO Episode Detection Interval Atrial 224 ms IDCO Episode Duration 77,575 s IDCO Episode Detection And Therapy Details ATR IDCO Episode Identifier ATR-9 IDCO Episode Date Time [id number] IDCO Episode Type Category AT/AF IDCO Episode Vendor Type Category ATR IDCO Episode Detection Interval Atrial 284 ms IDCO Episode Duration 9 s IDCO Episode Detection And Therapy Details ATR IDCO Episode Identifier ATR-8 IDCO Episode Date Time [id number] IDCO Episode Type Category AT/AF IDCO Episode Vendor Type Category ATR IDCO Episode Detection Interval Atrial 385 ms IDCO Episode Duration 6 s IDCO Episode Detection And Therapy Details ATR IDCO Episode Identifier ATR-7 IDCO Episode Date Time [id number] IDCO Episode Type Category AT/AF IDCO Episode Vendor Type Category ATR IDCO Episode Detection Interval Atrial 833 ms IDCO Episode Duration 1 s IDCO Episode Detection And Therapy Details ATR IDCO Episode Identifier ATR-6 IDCO Episode Date Time [id number] IDCO Episode Type Category AT/AF IDCO Episode Vendor Type Category ATR IDCO Episode Detection Interval Atrial 261 ms IDCO Episode Duration 11 s IDCO Episode Detection And Therapy Details ATR IDCO Episode Identifier V-3 IDCO Episode Date Time [id number] IDCO Episode Type Category VT IDCO Episode Vendor Type Category NSVT IDCO Episode Type Induced Flag NO IDCO Episode Detection Interval Ventricular 331 ms IDCO Episode Duration 6 s IDCO Episode Detection And Therapy Details NonSustV IDCO Episode Identifier ATR-5 IDCO Episode Date Time [id number] IDCO Episode Type Category AT/AF IDCO Episode Vendor Type Category ATR IDCO Episode Detection Interval Atrial 237 ms IDCO Episode Duration 43 s IDCO Episode Detection And Therapy Details ATR IDCO Episode Identifier ATR-4 IDCO Episode Date Time IDCO Episode Type Category AT/AF IDCO Episode Vendor Type Category ATR IDCO Episode Detection Interval Atrial 273 ms IDCO Episode Duration 15 s IDCO Episode Detection And Therapy Details ATR IDCO Episode Identifier ATR-3 IDCO Episode Date Time [id number] IDCO Episode Type Category AT/AF IDCO Episode Vendor Type Category ATR IDCO Episode Detection Interval Atrial 196 ms IDCO Episode Duration 6,757 s IDCO Episode Detection And Therapy Details ATR IDCO Episode Identifier ATR-2 IDCO Episode Date Time [id number] IDCO Episode Type Category AT/AF IDCO Episode Vendor Type Category ATR IDCO Episode Detection Interval Atrial 264 ms IDCO Episode Duration 10 s IDCO [...] Bipolar IDCO Lead Channel Setting Pacing Amplitude 5.0 V IDCO Lead Channel Setting Pacing Pulse [...] E162 IDCO Implantable Pulse Generator Serial Number [id number] IDCO Implantable Pulse Generator Field Installation Technician [place] [employer] IDCO Implantable Pulse Generator Implant Date 20140110 IDCO Implantable Lead Model 4136 IDCO Implantable Lead Serial Number [id number] IDCO Implantable Lead Field Installation Technician Guidant IDCO Implantable Lead Implant Date 20130421 IDCO Implantable Lead Polarity Type Bipolar Lead IDCO Implantable Lead Location Right Atrium IDCO Implantable Lead Model 0292 IDCO Implantable Lead Serial Number [id number] IDCO Implantable Lead Field Installation Technician [place] [employer] IDCO Implantable Lead Implant Date IDCO Implantable Lead Location Right Ventricle IDCO Lead Channel Measurements Date and Time Start 20140418 IDCO Lead Channel Measurements Date and Time End 20140716 IDCO Lead Channel Sensing Intrinsic Amplitude Mean 5.1 mV IDCO Lead Channel Sensing Polarity Bipolar IDCO Lead Channel Pacing Threshold Amplitude 0.4 V IDCO Lead Channel Pacing Threshold Pulse Width 0.5 ms IDCO Lead Channel Pacing Threshold Measurement Method Escalator Attendant Manual IDCO Lead Channel Pacing Threshold Polarity Bipolar IDCO Lead Channel Impedance Value 652 ohms IDCO Lead Channel Impedance Polarity Bipolar IDCO Lead Channel Measurements Date and Time Start 20140418 IDCO Lead Channel Measurements Date and Time End 20140716 IDCO Lead Channel Sensing Intrinsic Amplitude Mean 10.1 mV IDCO Lead Channel Sensing Polarity Bipolar IDCO Lead Channel Pacing Threshold Amplitude 0.7 V IDCO Lead Channel Pacing Threshold Pulse Width 0.5 ms IDCO Lead Channel Pacing Threshold Measurement Method Escalator Attendant Manual IDCO Lead Channel Pacing Threshold Polarity Bipolar IDCO Lead Channel Impedance Value 565 ohms IDCO Lead Channel Impedance Polarity Bipolar IDCO Lead High Voltage Channel Date Time 20140716 IDCO Lead High Voltage Channel Impedance 82 [...] % IDCO Anatomical Region Laterality Modality Other 07/18/2014 12:4 1 AM EDT Physician Cardiology IMPLANTABLE CARD IAC DEVICE documented in this encounter Visit Diagnoses Not on filedocumented in this encounter Care Teams Preparation Operator Relationship Specialty Start Date End Date Ángel Bingham MD [facility] [address] [place] [address] PCP - General 01/31/14 09/01/16 documented as of this encounter
--- OUTSIDE RECORDS SUMMARY | 2023-11-03 01:28 | XMS_ITS | Encounter Summary ---
[place] [address] Care Team Providers Care Farm Equipment Engineer Name Role Phone Ángel Bingham MD Primary Care Provider [phone] Encounter Details Date Type Department Care Team (Late st Contact Info) Description 08/17/2014 Orders Only Cardiology at [address] [address] Social History Tobacco Use Types Packs/Day Years [...] AM EDT Hospital Encounter Non-[place] [address] Arrived documented as of this encounter Procedures Procedure Name Priority Date/Time Associated Diagnosis Comments CARDIAC DEVICE CHECK - REMOTE PATIENT INITIATED Routine 08/17/2014 6:30 AM EDT documented in this encounter Results * (ABNORMAL) Cardiac device check - Remote Patient Initiated (08/17/2014 6:30 AM EDT) Date Time Interrogation Session [id number] IDCO Type Interrogation Session Remote Patient Initiated IDCO Clinic Name [facility] IDCO Battery Date Time of Measurements [id number] IDCO Battery Status Beginning of Service IDCO Battery Remaining Longevity 126 mo IDCO Battery Remaining Percentage 100 % IDCO Capacitor Last Charge Date Time [id number] IDCO Capacitor Charge Time 9.9 s IDCO Capacitor Charge Type Reformation IDCO Episode Identifier APM-6 IDCO Episode Date Time [id number] IDCO Episode Type Category Periodic EGM IDCO Episode Vendor Type Category APMRT IDCO Episode Detection And Therapy Details Presenting EGM IDCO Episode Identifier NMQ-13 IDCO Episode Date Time [id number] IDCO Episode Type Category Other IDCO Episode Vendor Type Category XANDER IDCO Episode Detection Interval Ventricular 938 ms IDCO Episode Duration 56 s IDCO Episode Detection And Therapy Details IDCO Episode Identifier IDCO Episode Date Time [id number] IDCO Episode Type Category Other IDCO Episode Vendor Type Category XANDER IDCO Episode Detection Interval Ventricular 923 ms IDCO Episode Duration 56 s IDCO Episode Detection And Therapy Details IDCO Episode Identifier IDCO Episode Date Time [id number] IDCO Episode Type Category Other IDCO Episode Vendor Type Category XANDER IDCO Episode Detection Interval Ventricular 923 ms IDCO Episode Duration 55 s IDCO Episode Detection And Therapy Details IDCO Episode Identifier IDCO Episode Date Time [id number] IDCO Episode Type Category Other IDCO Episode Vendor Type Category XANDER IDCO Episode Detection Interval Ventricular 1,000 ms IDCO Episode Duration 59 s IDCO Episode Detection And Therapy Details IDCO Episode Identifier IDCO Episode Date Time [id number] IDCO Episode Type Category Other IDCO Episode Vendor Type Category XANDER IDCO Episode Detection Interval Ventricular 1,071 ms IDCO Episode Duration 56 s IDCO Episode Detection And Therapy Details IDCO Episode Identifier NM IDCO Episode Date Time [id number] IDCO Episode Type Category Other IDCO Episode Vendor Type Category XANDER IDCO Episode Detection Interval Ventricular 938 ms IDCO Episode Duration 53 s IDCO Episode Detection And Therapy Details IDCO Episode Identifier NM IDCO Episode Date Time IDCO Episode Type Category Other IDCO Episode Vendor Type Category XANDER IDCO Episode Detection Interval Ventricular 938 ms IDCO Episode Duration 54 s IDCO Episode Detection And Therapy Details [facility] IDCO Episode Identifier [facility] IDCO Episode Date Time IDCO Episode Type Category Other IDCO Episode Vendor Type Category XANDER IDCO Episode Detection Interval Ventricular 923 ms IDCO Episode Duration 56 s IDCO Episode Detection And Therapy Details [facility] IDCO Episode Identifier [facility] IDCO Episode Date Time IDCO Episode Type Category Other IDCO Episode Vendor Type Category XANDER IDCO Episode Detection Interval Ventricular 938 ms IDCO Episode Duration 56 s IDCO Episode Detection And Therapy Details [facility] IDCO Episode Identifier [facility] IDCO Episode Date Time IDCO Episode Type Category Other IDCO Episode Vendor Type Category XANDER IDCO Episode Detection Interval Ventricular 909 ms IDCO Episode Duration 53 s IDCO Episode Detection And Therapy Details [facility] IDCO Episode Identifier ATR-14 IDCO Episode Date Time IDCO Episode Type Category AT/AF IDCO Episode Vendor Type Category ATR IDCO Episode Detection Interval Atrial 242 ms IDCO Episode Duration 7,379 s IDCO Episode Detection And Therapy Details ATR IDCO Episode Identifier V-4 IDCO Episode Date Time [id number] IDCO Episode Type Category VT IDCO Episode Vendor Type Category NSVT IDCO Episode Type Induced Flag NO IDCO Episode Detection Interval Ventricular 317 ms IDCO Episode Duration 6 s IDCO Episode Detection And Therapy Details NonSustV IDCO Episode Identifier ATR-13 IDCO Episode Date Time [id number] IDCO Episode Type Category AT/AF IDCO Episode Vendor Type Category ATR IDCO Episode Detection Interval Atrial 923 ms IDCO Episode Duration 1 s IDCO Episode Detection And Therapy Details ATR IDCO Episode Identifier ATR-12 IDCO Episode Date Time [id number] IDCO Episode Type Category AT/AF IDCO Episode Vendor Type Category ATR IDCO Episode Detection Interval Atrial 258 ms IDCO Episode Duration 16,842 s IDCO Episode Detection And Therapy Details ATR IDCO Episode Identifier ATR-11 IDCO Episode Date Time [id number] IDCO Episode Type Category AT/AF IDCO Episode Vendor Type Category ATR IDCO Episode Detection Interval Atrial 233 ms IDCO Episode Duration 34 s IDCO [...] E162 IDCO Implantable Pulse Generator Serial Number [id number] IDCO Implantable Pulse Generator Yard Associate [place] [employer] IDCO Implantable Pulse Generator Implant Date 20140110 IDCO Implantable Lead Model 4136 IDCO Implantable Lead Serial Number [id number] IDCO Implantable Lead Yard Associate Guidant IDCO Implantable Lead Implant Date 20130421 IDCO Implantable Lead Polarity Type Bipolar Lead IDCO Implantable Lead Location Right Atrium IDCO Implantable Lead Model 0292 IDCO Implantable Lead Serial Number [id number] IDCO Implantable Lead Yard Associate [place] [employer] IDCO Implantable Lead Implant Date IDCO [...] IDCO Lead Channel Pacing Threshold Measurement Method Inspector Pawnshop Detail Manual IDCO Lead Channel Pacing Threshold Polarity [...] IDCO Lead Channel Pacing Threshold Measurement Method Inspector Pawnshop Detail Manual IDCO Lead Channel Pacing Threshold Polarity [...] IDCO Anatomical Region Laterality Modality Other 08/17/2014 6:30 AM EDT Physician Cardiology IMPLANTABLE CARD IAC DEVICE documented in this encounter Visit Diagnoses Not on filedocumented in this encounter Care Teams Farm Equipment Engineer Relationship Specialty Start Date End Date Ángel Bingham MD [facility] [address] [place] [address] PCP - General 01/31/14 09/01/16 documented as of this encounter
--- OUTSIDE RECORDS SUMMARY | 2023-11-03 01:28 | XMS_ITS | Encounter Summary ---
Author Organization [facility] Address [facility] [place] [address] Care Team Providers Care Central Supply Technician Name Role Phone Ángel Bingham MD Primary Care Provider [phone] Encounter Details Date Type Department Care Team (Late st Contact Info) Description 04/12/2014 Orders Only Cardiology at [address] [phone] Edy Torres PA [facility] [address] Pacemaker lead malfunction, subsequent encounter Social History Tobacco Use Types Packs/Day [...] AM EDT Hospital Encounter Non-[place] [address] Arrived documented as of this encounter Procedures Procedure Name Priority Date/Time Associated Diagnosis Comments ELECTROPHYSIOLOGY PROCEDURE Routine 04/17/2014 12:52 PM EST Pacemaker lead malfunction, subsequent encounter documented in this encounter Results * ELECTROPHYSIOLOGY PROCEDURE (04/17/2014 12:52 PM EST) Anatomical Region Laterality Modality Other Narrative 04/17/2014 1:55 PM EST ICD Revision, Atrial lead explant. Indications: Atrial lead dislodgement Operators: ??Myrna Shepard MD Procedure: ??The patient was brought to the Electrophysiology Lab in the fasting state and continuous electrocardiographic monitoring was instituted. ??Moderate sedation was performed with incremental doses of midazolam and fentanyl. The left subclavicular fossa was prepped and draped in the usual sterile fashion and a 2:3 mixture of 2% lidocaine and 0.5% bupivicaine was instilled for local anesthesia and postoperative analgesia. An incision was made over the old scar, and the dissection was carried down to the level of the old pocket using sharp and blunt dissection with Plasmablade electrocautery carefully avoiding the old leads that were identified fluoroscopically. The old pulse generator was removed, and the electrodes disconnected. ??The previously implanted electrodes were physically intact (where visible). The old atrial lead was freed from the posterior capsule and the suture securing the collar was removed. ??A straight stylette was advanced into the lead for stability. The atrial lead was easily moved. The axillary vein was entered by imbedding an 18 gauge thin walled needle loaded with a guide wire into the old atrial lead. ??The lead with the imbedded guide wire was advanced as a single unit into the axillary vein and the old atrial lead advanced off the guide wire. ??The guide wires were advanced into the central venous circulation. ??Using the retained guide wires and a peel away introducer sheath, the new electrode was advanced to the right atrium under fluoroscopic guidnce. The electrode was anchored to the underlying pectoralis major fascia with a single stitch of 0 silk. The suture around the old ventricular lead collar was removed and the old ventricular lead was advanced slightly to increase the slack in the lead. ?? This electrode was also anchored to the underlying pectoralis major fascia with a single stitch of 0 silk. The leads were attached to the old DDDR ICD pulse generator, which was placed in the old pocket with the electrodes situated beneath it after it had been flushed with Neosporin antibiotic solution. The pulse generator was sutured to the underlying pectoralis major fascia with a stitch of O silk. Final Parameters: New Atrial electrode: ?? Diego Guerrero ??Model# 4126-53 cm Serial# [id number] ? Bipolar, steroid-tipped, active-fixation IS-1 lead ? Access: ? Axillary vein ? Location ? Right atrial appendage ? P wave, PSA: ? 3 mV ? P wave, ICD: ?4.1 mV ? Pacing threshold, PSA: ??0.7 V at 0.5 ms ? Pacing threshold, ICD: ??0.7 V at 0.5 ms ? Impedance, PSA: ?? 560 ohms ? Impedance, ICD: ?? 557 ohms ? Pace the diaphragm at 10 V: ??No Old Ventricular electrode: ?? [employer] [place] Model# 0292 Serial# [id number] ? Bipolar, steroid-tipped, active-fixation DF-4 lead ? Access: ? Axillary vein ? Location: ?Right ventricular apex ? Implanted: ? 01/10/2014 ? R wave, PSA: ? NA mV ? R wave, ICD: ? 8.9 mV ? Pacing threshold, PSA: ??NA V at 0.5 ms ? Pacing threshold, ICD: ??0.7 V at 0.5 ms ? Impedance, PSA: ?? NA ohms ? Impedance, ICD: ?? 510 ohms Old Atrial electrode: ?? Diego Guerrero Model# 4136 Serial# [id number] ? Bipolar, steroid-tipped, active-fixation IS-1 lead ? Access: ? Axillary vein ? Location ? Removed 04/17/2014 ? Implanted: ?01/10/2014 Pulse generator: ?? [employer] Incepta Model# E162 Serial# [id number] ?? ? DDDR ICD ? Location: ?Subcutaneous The wound was closed with interrupted stitches of 2-0 Monocryl and the skin was closed with a subcuticular stitch of 4-0 Monocryl Plus. ??Medical adhesive (Dermabond) was applied to the incision which was covered with a Mepilex dressing. ??Cinefluoroscopy documented the initial and final implant positions. Antibiotic: Ancef 2 grams IV at 11:33 Incision: 11:51 Fluoroscopy time: 4 min, 48 seconds. ??Total dose 3372 cGy-cm2 Estimated blood loss: <10 cc The patient tolerated the procedure well. Dr. Shepard performed the entire procedure without a fellow or resident. Myrna Shepard MD EP PROCEDURE ORDERA BLES documented in this encounter Visit Diagnoses Diagnosis Pacemaker lead malfunction, subsequent encounter Pacemaker lead malfunction, subsequent encounter documented in this encounter Care Teams Central Supply Technician Relationship Specialty Start Date End Date Ángel Bingham MD [facility] [address] [place] [address] [place] [address] PCP - General 01/31/14 09/01/16 documented as of this encounter
--- OUTSIDE RECORDS SUMMARY | 2023-11-03 01:29 | XMS_ITS | Encounter Summary ---
Author Organization [facility] [place] [address] Care Team Providers Care Cloth Bolt Bander Name Role Phone Jennifer Haro MD Primary Care Provider [phone] Encounter Details Date Type Department Care Team (Latest Contact Info) Description 01/06/2014 1:50 AM EDT - 01/11/2014 1:38 PM EDT Hospital Encounter Intermediate [place] [address] Kenia Bauman MD [facility] [place] [address] ASCVD (arteriosclerotic cardiovascular disease); Non-ST elevation myocardial infarction (NSTEMI); Tachycardia; ICD (implantable cardioverter-defibrill ator), dual, in situ Discharge Disposition: Home Social History Tobacco Use Types Packs/Day Years Used Date Smoking Tobacco: Every Day Cigarettes 0.8 25 Smokeless Tobacco: Never Alcohol Use Standard Drinks/Week Comments No 0 (1 standard drink = 0.6 oz pur e alcohol) Sex and Gender Information Value Date Recorded Sex Assigned at Not on file Gender Identity Not on file Sexual Orientation Not on file documented as of this encounter Last Filed Vital Signs Vital Sign Reading Time Taken Comments Blood Pressure 119/67 01/11/2014 9:00 AM EDT Pulse 62 01/11/2014 9:00 AM EDT Temperature 36.5 ??C (97.7 ??F) 01/11/2014 9:00 AM ED T Respiratory Rate 18 01/11/2014 9:00 AM EDT Oxygen Saturation 97% 01/11/2014 9:00 AM EDT Inhaled Oxygen Concentration - - Weight 88.9 kg (195 lb 15.8 oz) 01/11/2014 7:00 AM EDT Height 185.4 cm (6' 1) 01/06/2014 2:00 AM EDT Body Mass Index 25.86 01/06/2014 2:00 AM EDT documented in this encounter Discharge Instructions * Discharge Instructions* Edy Torres PA - 01/11/2014 12:09 PM EDT Final recommendations: 1. Standard post implant discharge instructions (see below): 2. Resume medications as listed. 3. You will be called to schedule a 91 day new device check at [facility]. 4. Transtelephonic device follow up in one week per pacemaker clinic. FOLLOW UP: Call your [...] that follow to care for your wound. Either you or someone with you needs to look at the wound everyday. Inspect the wound for signs of infection which can be drainage, swelling, warmth or increased pain or redness. Notify your doctor if your temperature is 100 degrees F or higher. If you are concerned about an infection in your wound or if the edges of the wound separate, call your doctor. A needle should not be put into the wound area because this can damage the pacemaker lead. You may need to remind your health-care provider of this concern. Dermaflex dressing - this should remain on the site for 7 days and then can be removed. If there isfluid accumulation under the dressing, it can be removed sooner. It is normal for the tissue under the site to appear 'pike'. The sutures will dissolve on their own. Do not scratch or rub the wound. Do not apply any creams, lotions or ointments on the wound until it is completely healed. You may cover the wound with gauze if it rubs on clothing and causes you discomfort. Do not shower for 48 hours after implant. While in the shower, turn your back to the water nozzle so you avoid direct water pressure on the wound. You should continue this for 7 - 10 days. You may take a tub bath, but keep the wound above the water level in the tub until the scab is gone. This usually takes 7 - 10 days. Avoid swimming until the same occurs. After 48 hours, you may wash the wound gently with soap and water. ARM MOVEMENT RESTRICTIONS FOR PATIENTS WITH PACEMAKERS AND ICD DEVICES Do not raise your elbow on the operated side above the shoulder for 6 weeks. You may use your arm on the operated side, but do not make extreme movements (such as stretching orreaching for a heavy object) for 6 weeks. Do not lift greater than 7 pounds with the arm on the operated side for 6 weeks. 7 pounds is equal to a gallon of milk. * Patient Instructions* Manolo Guido MD - 01/06/2014 12:32 PM EDT Instructions on Discharge to Home Why you were hospitalized - You were hospitalized for shortness of breath in the setting of an abnormal heart rhythm. This rhythm can be precipitated by poor perfusion of the heart's electrical conduction system and therefore you underwent a cardiac catheterization which showed that your coronary arteries were patent. A sonogram of the heart and an electrophysiologic study was performed which wassuggestive of a scar in your heart which may be the source of this abnormal rhythm. An ICD was placed. A follow up appointment with electrophysiology will be made to determine which of these options to pursue. Note several changes in your medications. Nortriptyline was stopped given the associated increased risk of sudden cardiac with this medication. An alternative anti-depressive may be pursued; alternatively, you may consider a drug holiday as you have been without significant depressive symptoms for years. I would consider exploring The Feeling Good Book by Dr. Bony Celis for helpful information regarding cognitive behavioral therapy, which is often used as a treatment adjunct for depression. For your ventricular tachycardia, metoprolol was started and nadolol was discontinued. As you were found to have low magnesium, you were given magnesium and started on supplementation. It is very important that you stop smoking. If you need further assistance, please discuss with your primary care physician for treatment options. Call your doctor or seek medical attention if you develop the following - chest pain, shortness of breath, fever, cough, weakness in an arm or leg Activity level - no restrictions Diet - no change in previous diet Driving - as before hospitalization Shower/Bath - permitted Wound Care - none Home Oxygen therapy - n/a Follow-up: Future Appointments Date Time Provider Department Center 02/07/2014 8:10 AM Kit Self MD [facility] [place] [facility] Follow-Up Appointments Date and Time Provider and Specialty Location Jan 13, 2014 @ 2:[address] [facility] Your Inpatient Doctor: Kenia Bauman MD Your Primary Care Provider: JENNIFER HARO MD [phone] For questions regarding this document or issues relating to this hospitalization on the Medical Service, please contact your inpatient physician through the [facility] . Issues afterhours and on weekends will be handled by the Hospitalist staff on-call. documented in this encounter Medications at Time of Discharge Medication Sig Dispensed Refills Start Date End Date zolpidem (AMBIEN) 10 mg Tablet Take 5 mg by mouth nightly as needed. multivitamin capsule Take 1 capsule by mouth daily. LANCETS MISC by Misc.(Non-Drug; Combo Route) route. metformin (GLUCOPHAGE) 1,000 mg tablet Take 1,000 mg by mouth 2 times daily (with meals). nitroGLYcerin (NITROSTAT) 0.[address] 0.4 mg under the tongue every 5 minutes as needed. Reported on 09/30/2016 metoprolol succinate (TOPROL-XL) 50 mg Tablet Sustained Release 24 hr Take 2 tablets by mouth daily. 30 tablet 12 01/11/2014 02/03/2014 oxyCODONE-acetaminophen (PERCOCET) 5-325 mg Tablet Take 1 tablet [...] 12 01/09/2014 07/11/2015 aspirin 81 mg EC tabletIndications:ASCVD (arteriosclerotic cardiovascular disease) Take 1 tablet by mouth daily. 90 tablet 3 09/23/2013 09/30/2016 rosuvastatin (CRESTOR) 20 mg tablet Take 10 mg by mouth daily. 07/11/2015 clopidogrel (PLAVIX) 75 mg tablet Take 1 tablet by mouth daily. 30 tablet 11 05/14/2013 07/11/2015 pantoprazole (PROTONIX) 40 mg tablet Take 1 tablet by mouth 2 times daily. 90 tablet 6 05/14/2013 01/27/2017 Flint-3 Fatty Acids (FISH OIL) 500 mg Cap Take by mouth daily. 01/14/2016 lamotrigine (LAMICTAL) 100 mg tablet Take 200 mg by mouth daily. 09/01/2018 alprazolam (XANAX XR) 3 mg 24 hr tablet Take 3 mg by mouth nightly. 09/18/2020 lactobac cmb #[id number] (PROBIOTIC & ACIDOPHILUS) 300-250 million cell-mg Cap Take by mouth daily. 07/11/2015 hydrOXYzine (ATARAX) 25 mg tablet Take 25 mg by mouth 3 times daily as needed. Reported on 09/30/2016 01/27/2017 glipizide (GLUCOTROL) 5 mg 24 hr tablet Take 10 mg by mouth daily. 01/27/2017 documented as of this encounter Progress Notes * Ervin Fontaine RN - 01/11/2014 1:28 PM EDT Patient has been alert and oriented this shift. VSS. No reports or pain or discomfort. Has been ambulating independently on unit. Discharge order acknowledged. IV and Telemetry discontinued. AVS printed and provided to patient. AVS and medication list reviewed with patient; all questions answered at this time. Patient discharged to [facility] with Daughter in stable condition. Wheelchair offered; patient elected to walk. * Edy Torres PA - 01/11/2014 12:10 PM EDT Patient Name: Shahnaz Santiago Patient Age: 63 y.o. Birthdate: 1950 Admit date: 01/06/2014 Attending Physician: Kenia Bauman MD Cardiac Electrophysiology Post-Iimplant Device Interrogation Note Shahnaz Santiago is a 63 y.o. male is POD # 1 following implant of a dual chamber, [employer] ICD for sustained ventricular tachycardia. He experienced about 26 hours of sustained monomorphic ventricular tachycardia. Interestingly, wallmotion appears normal on echo (possible WMA on LV angio), despite the fact that clinically he has atypical 'scar-related' anatomic substrate for reentry. His LVEF is preserved @ 56%. Patient Active Problem List Diagnosis Code ??? [...] ICD (implantable cardioverter-defibrillator), dual, in situ V45.02 Device data: Ventricular electrode: [employer] [place] Model# 0292 Serial# [id number] Bipolar, steroid-tipped, active-fixation, single coil DF-4 lead Access: Left axillary vein Location: RV apex R wave, ICD: 9.6 mV Pacing threshold, ICD: 0.6 V at 0.5 ms Impedance, ICD: 913 ohms (74 ohms for shock vector) Pace the diaphragm at 10 V: No Atrial electrode: [employer] [place] Model# 4136 Serial# [id number] Bipolar, steroid-tipped, active-fixation IS-1 lead Access: Left axillary vein Location Right atrial appendage P wave, ICD: 4.3 mV Pacing threshold, pacemaker: 1.7 V at 0.5 ms Impedance, pacemaker: 538 ohms Pace the diaphragm at 10 V: No Pulse generator: [employer] Model# E162 Serial# [id number] DDDR ICD Location: Subcutaneous Defibrillation testing was performed with [...] delay). There was minimal if any undersensing. BV: >7 yrs Charge time 9.7 seconds DDDR RythmIQ AAIR with VVI backup VF 220bpm ATP, 31j, 41j, 41j x6 VT 180bpm ATP2 OFF, 31j, 41j , 41j x4 VT-1 155bpm Scan, ramp scan 0.9j, 11j, 41j x3 P wave: 4.4mV R wave: 9.6mV Atrial impedance: 620 ohms RV impedance: 564 ohms Defib impedance: 70 ohms Atrial threshold: 0.4V @ 0.5ms Ventricular threshold: 0.7 @ 0.5ms Chest X-ray: Left sided, dual lead ICD; no pneumothorax; RV lead to RV apex Impression: Shahnaz Santiago is a 63 y.o. male who had an episode of sustained ventricular tachycardia (~26 hours) was easily inducible at EPS yet with preserved LVEF of 56%. He underwent dual chamber ICD implant.Device function is nominal. Enrolled in remote follow up program(he does not have a landline and cellular adaptor has been requested). Will schedule device clinic follow up in ~ 91 days. Provider: MAXIMO Leija Provider#: [id number] Consult attending physician: Estefanía Cross MD * Raul Salmeron RN - 01/11/2014 8:04 AM EDT Inpatient Post ICD Implant Teaching Note Verbal teaching was performed today [id number] with the patient including the following: -Brief generalized teaching of how ICDs function, and the patient's specific indication for ICD implant -Activity restrictions post ICD implant -Remote monitoring of the ICD via telephone (patient was given [facility] Latitude communicator today). -ICD insertion site wound care -Abnormal situations that necessitate a patient phone call to the clinic -Routine device clinic followup expectations A folder was given to the patient containing the temporary device identification card and printed instructions reiterating the instructions listed above. I provided my business card so that the patient may phone with any questions that may arise in the future concerning the implanted device. The patient verbalized good understanding of the instructions, and all pertinent questions were answered to the patient's satisfaction. * Kenia Bauman MD - 01/11/2014 6:19 AM EDT Inpatient Cardiology Progress Note Patient Name: Shahnaz Santiago Date of Admission: 01/06/2014 ( Hospital Day 5 days ) Service: S1 ID: Shahnaz Santiago is a 63 y.o. male with a history of ASCVD s/p stents 2007 2 stents in LAD and LCx 2008, JON to LAD for instent restenosis 04/2013, T2DM, HTN, IBS, active smoker and GERD who presents with a 2 day hx of sudden onset dyspnea on exertion and ventricular tachycardia. Active Problems: Active Hospital Problems Diagnosis ??? Sustained VT (ventricular tachycardia) ??? Hypertension ??? Hypomagnesemia ??? Depression Resolved Hospital Problems Diagnosis Date Resolved No resolved problems to display. 24 hr events: - Intermittent AIVR overnight, asymptomatic - ICD placed yesterday ROS: Denies CP, SOB, palpitations, PND, Orthopnea, dizziness/LH, LE swelling or pain, n/v, abd pain. Meds: Scheduled Meds: ??? [COMPLETED] magnesium sulfate 1 g Intravenous Once ??? magnesium oxide 400 mg Oral BID ??? [COMPLETED] BUpivacaine (PF) 30 mL Subcutaneous Once ??? [COMPLETED] ceFAZolin 2 g Intravenous Once ??? [COMPLETED] lidocaine 20 mL Subcutaneous Once ??? [COMPLETED] neomycin-polymyxin B Irrigation Once ??? ceFAZolin 1 g Intravenous Q8H ??? metoprolol succinate 100 mg Oral Daily ??? [DISCONTINUED] magnesium oxide 400 mg Oral BID ??? [] ceFAZolin 1 g Intravenous Once ??? lisinopril 20 mg Oral Daily ??? traZODone 100 mg Oral Nightly ??? [DISCONTINUED] metoprolol succinate 50 mg Oral Daily ??? clopidogrel 75 mg Oral Daily ??? lactobacillus 1 tablet Oral Daily ??? lamoTRIgine 100 mg Oral Daily ??? pantoprazole 40 mg Oral BID ??? rosuvastatin 20 mg Oral QPM ??? sodium chloride 0.9 % 5 mL Intravenous BID ??? insulin aspart 2-8 Units Subcutaneous Q4H JULIET ??? sodium chloride 0.9 % 5 mL Intravenous Q12H ??? aspirin 81 mg Oral Daily Continuous Infusions: ??? bivalirudin Stopped (01/06/141545) ??? adenosine Stopped (01/06/141544) PRN Meds:.[] midazolam (PF), [] fentaNYL (PF), oxyCODONE- acetaminophen, ondansetron, [DISCONTINUED] ondansetron (ZOFRAN) IV (doses greater than 4 mg), potassium chloride, potassium chloride, ALPRAZolam, cyclobenzaprine, hydrOXYzine, zolpidem, nitroGLYcerin, dextrose 50%, glucagon (human recombinant), lidocaine, bivalirudin, bivalirudin, adenosine, iohexol, acetaminophen Physical Exam: Last value Range last 24 hrs Temperature Temp: 36.5 ??C (97.7 ??F) Temp: [36.3 ??C (97.3 ??F)-36.5 ??C (97.7 ??F)] Heart Rate Heart Rate: 60 Heart Rate: [56-79] Blood Pressure BP: 112/72 mmHg BP: (112-149)/(59-83) Respiratory Rate Resp: 18 Resp: [16-18] SpO2 SpO2: 98 % SpO2: [96 %-100 %] Intake/Output Summary (Last 24 hours) at 01/11/14 0619 Last data filed at 01/11/14 0300 Gross per 24 hour Intake 1610 ml Output 2375 ml Net -765 ml cumulative I/O's since admission: -4835ml Patient Vitals for the past 168 hrs: Weight 01/09/14 0534 90.1 kg (198 lb 10.2 oz) 01/08/14 0611 91.8 kg (202 lb 6.1 oz) 01/07/14 0600 91.218 kg (201 lb 1.6 oz) 01/06/14 0200 92.398 kg (203 lb 11.2 oz) Admit wt: 92.4kg Gen: pleasant male in NAD HEENT: MMM CV: RRR, s1/s2 of nl character and amplitude, no m/r/g, Resp: CTAB Abd: nondistended, soft, NT Ext: WWP, 2++ dp/pt pulses, no peripheral edema Neuro: alert and responsive. Without focal deficit Labs Recent Labs Basename 01/11/14 0356 01/10/14 0421 01/09/14 0432 WBC 10.8* 8.8 8.0 HGB 12.9* 13.6* 14.5 HCT 38.7* 38.8* 43.0 PLATELET 171 177 184 Recent Labs Basename 01/11/14 0356 01/10/14 0421 01/09/14 0432 NA 139 139 141 K 4.0 4.3 4.2 CL 103 102 102 CO2 22 25 24 BUN 18 17 15 CREATININE 0.83 0.91 0.87 No results found for this basename: AST:3,ALT:3,ALKPHOS:3,BILITOT:3,BILIDIR:3 in the last 168 hours Recent Labs Basename 01/11/14 0356 01/10/14 0421 01/09/14 0432 CALCIUM 8.9 9.7 10.0 MAGNESIUM 0.70 0.67* 0.76 PHOS -- -- -- Recent Labs Basename 01/06/14 1130 INR -- PT -- PTT 48* Recent Labs Basename 01/06/14 1240 01/06/14 1130 01/06/14 0250 CK 127 132 101 TROPONINT 0.10* Not Perf 0.05* Imaging/Studies: CXR: Left basilar subsegmental atelectasis. Echo: 1. The left ventricle is mildly dilated. [...] See remainder of report for additional findings. Cardiac Catheterization: 01/06 Cath today: PCI not indicated (stents patent). Official report not up--but per Dr. Garzon's review there appears to be distal occlusion of RCA filling by left to right collaterals, and perhaps focal PB WMA on LV angio. Assessment: 63 yo man with ASCVD s/p stents 2007 2 stents in LAD and LCx 2008, JON to LAD for instent restenosis 04/2013, T2DM, HTN, IBS, active smoker and GERD who presents with a 2 day hx of sudden onset dyspnea on exertion and ventricular tachycardic. Cardiac catheterization demonstrated patent vessels, making an ischemic etiology driving his VT less likely. Follow up electrophysiology study was notable for inducible VT, without evidence of an accessory pathway, suggestive of VT in the setting of a scar. Pt now s/p ICD placement, doing well and ready for discharge. The patient has follow upscheduled with his PCP and with cardiology, EP will arrange follow up as well. He will receive 1 more dose sarita-procedure antibiotics and then be discharged. Plan: #VT No evidence of ischemic source on cardiac catheterization. EP study without evidence of accessory pathyway preserved AV conduction, monomorphic VT easily elicited. Magnesium low today. -s/p cardioversion - NPO for ICD placement today - Magnesium repletion #ASCVD: no evidence of occlusive lesion on cardiac catheterization, s/p JON stenting 04/2013 -mildly positive troponin and CK -clopidogrel 75mg daily -asa 81mg -restart HCTZ 12.5mg - lisinopril 20mg #HERMES - resolved #elevated WBC count -much higher at outside hospital 20.6K and 11K here (only hours between measures), this seems perhaps a laboratory discrepiancy or transient spike due to stress - resolved #T2DM -moderate ISS -holding glipizde, exenatide, metformin #Depression: - holding notryptylline as it can cause cardiac rhythm disturbances. - will discuss medication options with pt #IBS -atarax 25mg BID #Pain - Flexeril #GERD -pantoprazole PPx: DVT- hep 5000U sq q12hr GI- on pantoprazole for GERD Dispo- home today Code Status: Full Code EDIE FLORES, DO Cardiology S1 (pgr. [id number]) Cardiology Attending Addendum I have interviewed and examined the patient, reviewed the available data, and have discussed my findings, assessment and plan with the patient and the team. I agree with Dr. Flores's note as above. Patient stable for discharge to home. * Nora Schaeffer RN - 01/10/2014 3:25 PM EDT Office of Care Management Pt remains in need of acute care at this time. Plan is for ICD placement today. Pt is insured with [employer]. No discharge needs identified at this time. Will continue to follow for coordination of care and discharge planning. Nora Schaeffer DISPATCHER CHIEF OIL CRC/Stacy GUO BSN RN CRC Office of Care Managment Pager [phone] * Yamile Raya RN - 01/10/2014 6:30 AM EDT RN alerted by tele that patient is in a ventricular rhythm. Patient will go in and out of this. Vitals stable. Patient felt asymptomatic. Orders reviewed to replace magnesium. Will continue to monitor. * Edie Flores - 01/10/2014 6:11 AM EDT Inpatient Cardiology Progress Note Patient Name: Shahnaz Santiago Date of Admission: 01/06/2014 ( Hospital Day 4 days ) Service: S1 ID: Shahnaz Santiago is a 63 y.o. male with a history of ASCVD s/p stents 2008 2 stents in LAD and LCx 2008, JON to LAD for instent restenosis 04/2013, T2DM, HTN, IBS, active smoker and GERD who presents with a 2 day hx of sudden onset dyspnea on exertion and ventricular tachycardia. Active Problems: Active Hospital Problems Diagnosis ??? Sustained VT (ventricular tachycardia) ??? Hypertension ??? Hypomagnesemia ??? Depression Resolved Hospital Problems Diagnosis Date Resolved No resolved problems to display. 24 hr events: - Intermittent AIVR overnight, asymptomatic - One episode 7 beat run VT ~150bpm. [place] warm, needed to urinate during that time. - Decided on ICD yesterday evening ROS: Denies CP, SOB, palpitations, PND, Orthopnea, dizziness/LH, LE swelling or pain, n/v, abd pain. Meds: Scheduled Meds: ??? [COMPLETED] magnesium sulfate 1 g Intravenous Once ??? ceFAZolin 1 g Intravenous Once ??? lisinopril 20 mg Oral Daily ??? metoprolol succinate 50 mg Oral Daily ??? traZODone 100 mg Oral Nightly ??? clopidogrel 75 mg Oral Daily ??? lactobacillus 1 tablet Oral Daily ??? lamoTRIgine 100 mg Oral Daily ??? pantoprazole 40 mg Oral BID ??? rosuvastatin 20 mg Oral QPM ??? sodium chloride 0.9 % 5 mL Intravenous BID ??? insulin aspart 2-8 Units Subcutaneous Q4H JULIET ??? sodium chloride 0.9 % 5 mL Intravenous Q12H ??? aspirin 81 mg Oral Daily Continuous Infusions: ??? bivalirudin Stopped (01/06/14 1546) ??? adenosine Stopped (01/06/14 154) PRN Meds:.potassium chloride, potassium chloride, ALPRAZolam, cyclobenzaprine, hydrOXYzine, zolpidem, nitroGLYcerin, dextrose 50%, glucagon (human recombinant), lidocaine, bivalirudin, bivalirudin, adenosine, iohexol, acetaminophen Physical Exam: Last value Range last 24 hrs Temperature Temp: 36.4 ??C (97.5 ??F) Temp: [36.4 ??C (97.5 ??F)-36.8 ??C (98.2 ??F)] Heart Rate Heart Rate: 79 Heart Rate: [58-79] Blood Pressure BP: 135/83 mmHg BP: (106-138)/(62-83) Respiratory Rate Resp: 16 Resp: [16] SpO2 SpO2: 98 % SpO2: [94 %-99 %] Intake/Output Summary (Last 24 hours) at 01/10/14 0815 Last data filed at 01/10/14 0806 Gross per 24 hour Intake 600 ml Output 3075 ml Net -2475 ml cumulative I/O's since admission: -4070ml Patient Vitals for the past 168 hrs: Weight 01/09/14 0534 90.1 kg (198 lb 10.2 oz) 01/08/14 0611 91.8 kg (202 lb 6.1 oz) 01/07/14 0600 91.218 kg (201 lb 1.6 oz) 01/06/14 0200 92.398 kg (203 lb 11.2 oz) Admit wt: 92.4kg Gen: pleasant male in NAD HEENT: MMM CV: RRR, s1/s2 of nl character and amplitude, no m/r/g, Resp: CTAB Abd: nondistended, soft, NT Ext: WWP, 2++ dp/pt pulses, no peripheral edema Neuro: alert and responsive. Without focal deficit Labs Recent Labs Basename 01/10/14 0421 01/09/14 0432 01/08/14 0703 WBC 8.8 8.0 7.5 HGB 13.6* 14.5 11.8* HCT 38.8* 43.0 35.5* PLATELET 177 184 143* Recent Labs Basename 01/10/14 0421 01/09/14 0432 01/08/14 0703 NA 139 141 140 K 4.3 4.2 3.9 CL 102 102 103 CO2 25 24 24 BUN 17 15 16 CREATININE 0.91 0.87 0.74* No results found for this basename: AST:3,ALT:3,ALKPHOS:3,BILITOT:3,BILIDIR:3 in the last 168 hours Recent Labs Basename 01/10/14 0421 01/09/14 0432 01/08/14 0703 CALCIUM 9.7 10.0 9.1 MAGNESIUM 0.67* 0.76 0.58* PHOS -- -- -- Recent Labs Basename 01/06/14 1130 INR -- PT -- PTT 48* Recent Labs Basename 01/06/14 1240 01/06/14 1130 01/06/14 0250 CK 127 132 101 TROPONINT 0.10* Not Perf 0.05* Imaging/Studies: CXR: Left basilar subsegmental atelectasis. Echo: 1. The left ventricle is mildly dilated. [...] See remainder of report for additional findings. Cardiac Catheterization: 01/06 Cath today: PCI not indicated (stents patent). Official report not up--but per Dr. Garzon's review there appears to be distal occlusion of RCA filling by left to right collaterals, and perhaps focal PB WMA on LV angio. Assessment: 63 yo man with ASCVD s/p stents 2007 2 stents in LAD and LCx 2008, JON to LAD for instent restenosis 04/2013, T2DM, HTN, IBS, active smoker and GERD who presents with a 2 day hx of sudden onset dyspnea on exertion and ventricular tachycardic. Cardiac catheterization demonstrated patent vessels, making an ischemic etiology driving his VT less likely. Follow up electrophysiology study was notable for inducible VT, without evidence of an accessory pathway, suggestive of VT in the setting of a scar. Pt has decided on ICD placement, will be performed today. Plan: #VT No evidence of ischemic source on cardiac catheterization. EP study without evidence of accessory pathyway preserved AV conduction, monomorphic VT easily elicited. Magnesium low today. -s/p cardioversion - NPO for ICD placement today - Magnesium repletion #ASCVD: no evidence of occlusive lesion on cardiac catheterization, s/p JON stenting 04/2013 -mildly positive troponin and CK -clopidogrel 75mg daily -asa 81mg -restart HCTZ 12.5mg - lisinopril 20mg #HERMES - resolved #elevated WBC count -much higher at outside hospital 20.6K and 11K here (only hours between measures), this seems perhaps a laboratory discrepiancy or transient spike due to stress - resolved #T2DM -moderate ISS -holding glipizde, exenatide, metformin #Depression: - holding notryptylline as it can cause cardiac rhythm disturbances. - will discuss medication options with pt #IBS -atarax 25mg BID #Pain - Flexeril #GERD -pantoprazole PPx: DVT- hep 5000U sq q12hr GI- on pantoprazole for GERD Code Status: Full Code EDIE JENSEN FLORES, DO Cardiology S1 (pgr. [id number]) * Kenia Bauman MD - 01/09/2014 6:06 AM EDT Inpatient Cardiology Progress Note Patient Name: Shahnaz Santiago Date of Admission: 01/06/2014 ( Hospital Day 3 days ) Service: S1 ID: Shahnaz Santiago is a 63 y.o. male with a history of ASCVD s/p stents 2007 2 stents in LAD and LCx 2008, JON to LAD for instent restenosis 04/2013, T2DM, HTN, IBS, active smoker and GERD who presents with a 2 day hx of sudden onset dyspnea on exertion and ventricular tachycardia. Active Problems: Active Hospital Problems Diagnosis ??? Sustained VT (ventricular tachycardia) ??? Hypertension ??? Hypomagnesemia ??? Depression Resolved Hospital Problems Diagnosis Date Resolved No resolved problems to display. 24 hr events: - Intermittent junctional rhythm with longest lasting ~2 minutes, no sx/s during that time - Difficulty sleeping last night - Still thinking about ICD versus ablation versus medical management ROS: Denies CP, SOB, palpitations, PND, Orthopnea, dizziness/LH, LE swelling or pain, n/v, abd pain. Meds: Scheduled Meds: ??? [COMPLETED] magnesium sulfate 2 g Intravenous Once ??? lisinopril 20 mg Oral Daily ??? metoprolol succinate 50 mg Oral Daily ??? [COMPLETED] magnesium sulfate 2 g Intravenous Once ??? [COMPLETED] LORazepam 1 mg Oral Once ??? traZODone 100 mg Oral Nightly ??? clopidogrel 75 mg Oral Daily ??? lactobacillus 1 tablet Oral Daily ??? lamoTRIgine 100 mg Oral Daily ??? pantoprazole 40 mg Oral BID ??? rosuvastatin 20 mg Oral QPM ??? sodium chloride 0.9 % 5 mL Intravenous BID ??? insulin aspart 2-8 Units Subcutaneous Q4H JULIET ??? sodium chloride 0.9 % 5 mL Intravenous Q12H ??? aspirin 81 mg Oral Daily ??? [DISCONTINUED] metoprolol tartrate 12.5 mg Oral Q6H JULIET Continuous Infusions: ??? bivalirudin Stopped (01/06/141545) ??? adenosine Stopped (01/06/141544) PRN Meds:.potassium chloride, potassium chloride, ALPRAZolam, cyclobenzaprine, hydrOXYzine, zolpidem, nitroGLYcerin, dextrose 50%, glucagon (human recombinant), lidocaine, bivalirudin, bivalirudin, adenosine, iohexol, acetaminophen Physical Exam: Last value Range last 24 hrs Temperature Temp: 36.6 ??C (97.9 ??F) Temp: [36.3 ??C (97.3 ??F)-36.9 ??C (98.4 ??F)] Heart Rate Heart Rate: 58 Heart Rate: [55-65] Blood Pressure BP: 125/55 mmHg BP: (112-172)/(55-89) Respiratory Rate Resp: 18 Resp: [16-20] SpO2 SpO2: 98 % SpO2: [96 %-99 %] Intake/Output Summary (Last 24 hours) at 01/09/14 0606 Last data filed at 01/09/14 0422 Gross per 24 hour Intake 1360 ml Output 2525 ml Net -1165 ml cumulative I/O's since admission: -2605ml Patient Vitals for the past 168 hrs: Weight 01/09/14 0534 90.1 kg (198 lb 10.2 oz) 01/08/14 0611 91.8 kg (202 lb 6.1 oz) 01/07/14 0600 91.218 kg (201 lb 1.6 oz) 01/06/14 0200 92.398 kg (203 lb 11.2 oz) Admit wt: 92.4kg Gen: pleasant male in NAD HEENT: MMM CV: RRR, s1/s2 of nl character and amplitude, no m/r/g, Resp: CTAB Abd: nondistended, soft, NT Ext: WWP, 2++ dp/pt pulses, no peripheral edema Neuro: alert and responsive. Without focal deficit Labs Recent Labs Basename 01/09/14 0432 01/08/14 0703 01/07/14 0340 WBC 8.0 7.5 8.9 HGB 14.5 11.8* 11.4* HCT 43.0 35.5* 34.5* PLATELET 184 143* 137* Recent Labs Basename 01/09/14 0432 01/08/14 0703 01/07/14 1000 01/07/14 0340 NA 141 140 -- 140 K 4.2 3.9 4.3 -- CL 102 103 -- 103 CO2 24 24 -- 26 BUN 15 16 -- 20 CREATININE 0.87 0.74* -- 0.81 No results found for this basename: AST:3,ALT:3,ALKPHOS:3,BILITOT:3,BILIDIR:3 in the last 168 hours Recent Labs Basename 01/09/14 0432 01/08/14 0703 01/07/14 1000 01/07/14 0340 CALCIUM 10.0 9.1 -- 8.8 MAGNESIUM 0.76 0.58* 0.66* -- PHOS -- -- -- -- Recent Labs Basename 01/06/14 1130 INR -- PT -- PTT 48* Recent Labs Basename 01/06/14 1240 01/06/14 1130 01/06/14 0250 CK 127 132 101 TROPONINT 0.10* Not Perf 0.05* Imaging/Studies: CXR: Left basilar subsegmental atelectasis. Echo: 1. The left ventricle is mildly dilated. [...] See remainder of report for additional findings. Cardiac Catheterization: 01/06 Cath today: PCI not indicated (stents patent). Official report not up--but per Dr. Garzon's review there appears to be distal occlusion of RCA filling by left to right collaterals, and perhaps focal PB WMA on LV angio. Assessment: 63 yo man with ASCVD s/p stents 2007 2 stents in LAD and LCx 2008, JON to LAD for instent restenosis 04/2013, T2DM, HTN, IBS, active smoker and GERD who presents with a 2 day hx of sudden onset dyspnea on exertion and ventricular tachycardic. Cardiac catheterization demonstrated patent vessels, making an ischemic etiology driving his VT less likely. Follow up electrophysiology study was notable for inducible VT, without evidence of an accessory pathway, suggestive of VT in the setting of a scar. Pt still thinking about ICD placement vs. off label dofetilide or metoprolol vs. ablation. Plan: #VT -s/p cardioversion - Ep study without evidence of accessory pathyway preserved AV conduction, monomorphic VT easily elicited - Discussion ongoing re: ICD placement vs. Dofetilide +/- metoprolol maximization +/- Ablation - Will follow up with pt re: choice, will make NPO if pt decides to pursue ICD placement #ASCVD: no evidence of occlusive lesion on cardiac catheterization, s/p JON stenting 04/2013 -mildly positive troponin and CK -clopidogrel 75mg daily -asa 81mg -restart HCTZ 12.5mg - lisinopril 20mg #HERMES - resolved #elevated WBC count -much higher at outside hospital 20.6K and 11K here (only hours between measures), this seems perhaps a laboratory discrepiancy or transient spike due to stress - resolved #T2DM -moderate ISS -holding glipizde, exenatide, metformin #Depression: - holding notryptylline as it can cause cardiac rhythm disturbances. - will discuss medication options with pt #IBS -atarax 25mg BID #Pain - Flexeril #GERD -pantoprazole PPx: DVT- hep 5000U sq q12hr GI- on pantoprazole for GERD Code Status: Full Code EDIE FLORES, Cardiology S1 (pgr. [id number]) Cardiology Attending Addendum I have interviewed and examined the patient, reviewed the available data, and have discussed my findings, assessment and plan with the patient and the team. I agree with Dr. Flores's note as above. In addition patient had periods of idioventricular rhythm last night on telemetry with HR in 50s to 60. I had several discussion with patient and his daughter today about ICD vs ablation and later this afternoon patient had an extensive discussion with pt and daughter as well and patient decided for ICD tomorrow. * Teresita Lozano RN - 01/09/2014 2:14 AM EDT 0130- Pt had a few long runs of Junctional beats. Pt is asymptomatic during these occurrences. notified via text page. Call coleman in reach. Will continue to monitor. 0500- Pt had a 2 minute sustained run of a junctional MD joão notified and ECG strips monitored. Pt asymptomatic, will continue to monitor. * Kenia Bauman MD - 01/08/2014 1:40 PM EDT Inpatient Cardiology Progress Note Patient Name: Shahnaz Santiago Date of Admission: 01/06/2014 ( Hospital Day 2 days ) Service: S1 ID: Shahnaz Santiago is a 63 y.o. male with a history of ASCVD s/p stents 2008 2 stents in LAD and LCx 2008, JON to LAD for instent restenosis 04/2013, T2DM, HTN, IBS, active smoker and GERD who presents with a 2 day hx of sudden onset dyspnea on exertion and ventricular tachycardia. Active Problems: Active Hospital Problems Diagnosis ??? Sustained VT (ventricular tachycardia) ??? Depression Resolved Hospital Problems Diagnosis Date Resolved No resolved problems to display. 24 hr events: - No acute events overnight - Feels well this morning - Still thinking about ICD versus ablation versus medical management ROS: Denies CP, SOB, palpitations, PND, Orthopnea, dizziness/LH, LE swelling or pain, n/v, abd pain. Meds: Scheduled Meds: ??? magnesium sulfate 2 g Intravenous Once ??? clopidogrel 75 mg Oral Daily ??? lactobacillus 1 tablet Oral Daily ??? lamoTRIgine 100 mg Oral Daily ??? pantoprazole 40 mg Oral BID ??? rosuvastatin 20 mg Oral QPM ??? sodium chloride 0.9 % 5 mL Intravenous BID ??? insulin aspart 2-8 Units Subcutaneous Q4H JULIET ??? sodium chloride 0.9 % 5 mL Intravenous Q12H ??? metoprolol tartrate 12.5 mg Oral Q6H JULIET ??? aspirin 81 mg Oral Daily Continuous Infusions: ??? bivalirudin Stopped (01/06/141545) ??? adenosine Stopped (01/06/141544) PRN Meds:.potassium chloride, potassium chloride, ALPRAZolam, cyclobenzaprine, hydrOXYzine, zolpidem, nitroGLYcerin, dextrose 50%, glucagon (human recombinant), lidocaine, bivalirudin, bivalirudin, adenosine, iohexol, acetaminophen, [DISCONTINUED] midazolam (PF), [DISCONTINUED] atropine, [DISCONTINUED] fentaNYL Citrate (PF) Physical Exam: Last value Range last 24 hrs Temperature Temp: 36.7 ??C (98.1 ??F) Temp: [36.7 ??C (98.1 ??F)] Heart Rate Heart Rate: 61 Heart Rate: [56-68] Blood Pressure BP: 146/76 mmHg BP: (116-156)/(57-80) Respiratory Rate Resp: 16 Resp: [16-20] SpO2 SpO2: 98 % SpO2: [97 %-99 %] Intake/Output Summary (Last 24 hours) at 01/08/14 1446 Last data filed at 01/08/14 1206 Gross per 24 hour Intake 960 ml Output 1775 ml Net -815 ml cumulative I/O's since admission: -1440ml Patient Vitals for the past 168 hrs: Weight 01/08/14 0611 91.8 kg (202 lb 6.1 oz) 01/07/14 0600 91.218 kg (201 lb 1.6 oz) 01/06/14 0200 92.398 kg (203 lb 11.2 oz) Admit wt: 92.4kg Gen: pleasant male in NAD HEENT: MMM CV: RRR, s1/s2 of nl character and amplitude, no m/r/g, Resp: CTAB Abd: nondistended, soft, NT Ext: WWP, 2++ dp/pt pulses, no peripheral edema Neuro: alert and responsive. Without focal deficit Labs Recent Labs Basename 01/08/14 0703 01/07/14 0340 01/06/14 0250 WBC 7.5 8.9 11.0* HGB 11.8* 11.4* 13.0* HCT 35.5* 34.5* 39.2* PLATELET 143* 137* 152 Recent Labs Basename 01/08/14 0703 01/07/14 1000 01/07/14 0340 01/06/14 0250 NA 140 -- 140 140 K 3.9 4.3 3.4* -- CL 103 -- 103 102 CO2 24 -- 26 25 BUN 16 -- 20 31* CREATININE 0.74* -- 0.81 1.41 No results found for this basename: AST:3,ALT:3,ALKPHOS:3,BILITOT:3,BILIDIR:3 in the last 168 hours Recent Labs Basename 01/08/14 0703 01/07/14 1000 01/07/14 0340 01/06/14 0250 CALCIUM 9.1 -- 8.8 9.8 MAGNESIUM 0.58* 0.66* 0.61* -- PHOS -- -- -- -- Recent Labs Basename 01/06/14 1130 INR -- PT -- PTT 48* Recent Labs Basename 01/06/14 1240 01/06/14 1130 01/06/14 0250 CK 127 132 101 TROPONINT 0.10* Not Perf 0.05* Imaging/Studies: CXR: Left basilar subsegmental atelectasis. Echo: 1. The left ventricle is mildly dilated. [...] See remainder of report for additional findings. Cardiac Catheterization: 01/06 Cath today: PCI not indicated (stents patent). Official report not up--but per Dr. Garzon's review there appears to be distal occlusion of RCA filling by left to right collaterals, and perhaps focal PB WMA on LV angio. Assessment: 63 yo man with ASCVD s/p stents 2007 2 stents in LAD and LCx 2008, JON to LAD for instent restenosis 04/2013, T2DM, HTN, IBS, active smoker and GERD who presents with a 2 day hx of sudden onset dyspnea on exertion and ventricular tachycardic. Cardiac catheterization demonstrated patent vessels, making an ischemic etiology driving his VT less likely. Follow up electrophysiology study was notable for inducible VT, without evidence of an accessory pathway, suggestive of VT in the setting of a scar. Pt still thinking about ICD placement vs. off label dofetilide or metoprolol vs. ablation. Plan: #VT -s/p cardioversion - Ep study without evidence of accessory pathyway preserved AV conduction, monomorphic VT easily elicited - Discussion ongoing re: ICD placement vs. Dofetilide +/- metoprolol maximization +/- Ablation - Will follow up with pt re: choice, will make NPO if pt decides to pursue ICD placement #ASCVD: no evidence of occlusive lesion on cardiac catheterization, s/p JON stenting 04/2013 -mildly positive troponin and CK -clopidogrel 75mg daily -asa 81mg -holding lisinopril 10mg and HCTZ 12.5mg for resolution of HERMES #HERMES - resolved #elevated WBC count -much higher at outside hospital 20.6K and 11K here (only hours between measures), this seems perhaps a laboratory discrepiancy or transient spike due to stress - resolved #T2DM -moderate ISS -holding glipizde, exenatide, metformin #Depression: - holding notryptylline as it can cause cardiac rhythm disturbances. - will discuss medication options with pt #IBS -atarax 25mg BID #Pain - Flexeril #GERD -pantoprazole PPx: DVT- hep 5000U sq q12hr GI- on pantoprazole for GERD Code Status: Full Code JORI AYALA MD Cardiology S1 (pgr. [id number]) Cardiology Attending Addendum I have interviewed and examined the patient, reviewed the available data, and have discussed my findings, assessment and plan with the patient and the team. I agree with Dr. Ayala's note as above.I discussed with patient that he could either stay for ICD implantation probably tomorrow or followup with Dr. Berry as outpatient to discuss further ICD vs VT ablation procedure as he is still uncertain which way to go. After rounds I learned from Dr. Ayala that patient's sister (a nurse) is coming in to convince him not to [place] [facility]. Will await his decision. * Kenia Bauman MD - 01/07/2014 6:52 AM EDT Inpatient Cardiology Progress Note Patient Name: Shahnaz Santiago Date of Admission: 01/06/2014 ( Hospital Day 1 day ) Service: S1 ID: Shahnaz Santiago is a 63 y.o. male with a history of ASCVD s/p stents 2007 2 stents in LAD and LCx 2008, JON to LAD for instent restenosis 04/2013, T2DM, HTN, IBS, active smoker and GERD who presents with a 2 day hx of sudden onset dyspnea on exertion and ventricular tachycardia. Active Problems: Active Hospital Problems Diagnosis ??? Depression Resolved Hospital Problems Diagnosis Date Resolved No resolved problems to display. 24 hr events: - No acute events overnight ROS: Denies CP, SOB, palpitations, PND, Orthopnea, dizziness/LH, LE swelling or pain, n/v, abd pain. Telemetry: Mode Rate Rhythm Ectopy? Cardiac Meds: Other Meds: Physical Exam: Last value Range last 24 hrs Temperature Temp: 37 ??C (98.6 ??F) Temp: [36.8 ??C (98.2 ??F)-37 ??C (98.6 ??F)] Heart Rate Heart Rate: 53 Heart Rate: [51-62] Blood Pressure BP: 90/45 mmHg BP: (90-122)/(45-73) Respiratory Rate Resp: 16 Resp: [15-20] SpO2 SpO2: 96 % SpO2: [96 %-99 %] Intake/Output Summary (Last 24 hours) at 01/07/14 0653 Last data filed at 01/07/14 0600 Gross per 24 hour Intake 1410.33 ml Output 2850 ml Net -1439.67 ml cumulative I/O's since admission: -1440ml Patient Vitals for the past 168 hrs: Weight 01/07/14 0600 91.218 kg (201 lb 1.6 oz) 01/06/14 0200 92.398 kg (203 lb 11.2 oz) Admit wt: 92.4kg Gen: pleasant male in NAD HEENT: MMM CV: RRR, s1/s2 of nl character and amplitude, no m/r/g, Resp: CTAB Abd: nondistended, soft, NT Ext: WWP, 2++ dp/pt pulses, no peripheral edema, no bruit at femoral stick site Neuro: alert and responsive. Without focal deficit Labs Recent Labs Basename 01/07/14 0340 01/06/14 0250 WBC 8.9 11.0* HGB 11.4* 13.0* HCT 34.5* 39.2* PLATELET 137* 152 Recent Labs Basename 01/07/14 0340 01/06/14 0250 NA 140 140 K 3.4* 4.4 CL 103 102 CO2 26 25 BUN 20 31* CREATININE 0.81 1.41 No results found for this basename: AST:3,ALT:3,ALKPHOS:3,BILITOT:3,BILIDIR:3 in the last 168 hours Recent Labs Basename 01/07/14 0340 01/06/14 0250 CALCIUM 8.8 9.8 MAGNESIUM 0.61* 0.67* PHOS -- -- Recent Labs Basename 01/06/14 1130 INR -- PT -- PTT 48* Recent Labs Basename 01/06/14 1240 01/06/14 1130 01/06/14 0250 CK 127 132 101 TROPONINT 0.10* Not Perf 0.05* Imaging/Studies: CXR: Left basilar subsegmental atelectasis. Echo: 1. The left ventricle is mildly dilated. [...] See remainder of report for additional findings. Cardiac Catheterization: 01/06 Cath today: PCI not indicated (stents patent). Official report not up--but per Dr. Garzon's review there appears to be distal occlusion of RCA filling by left to right collaterals, and perhaps focal PB WMA on LV angio. Assessment: 63 yo man with ASCVD s/p stents 2007 2 stents in LAD and LCx 2008, JON to LAD for instent restenosis 04/2013, T2DM, HTN, IBS, active smoker and GERD who presents with a 2 day hx of sudden onset dyspnea on exertion and Ventricular Tachycardic. Cardiac catheterization yesterday did not show any evidence of ischemic etiology of VT. Electrophysiology study did not find a functioning accessory pathway, with preserved atrioventricular conduction. Monomorphic VT with cycle length 400-45ms was easily elicited. Per discussion with EP today, pt could have ICD placement vs. Off label dofetilide for antiarrhythmia vs. Metoprolol maximization with future ablation. Plan: #VT -s/p cardioversion - Ep study without evidence of accessory pathyway preserved AV conduction, monomorphic VT easily elicited - Discussion ongoing re: ICD placement vs. Dofetilide +/- metoprolol maximization +/- Ablation - Will follow up with pt re: choice, pt will stay at least 1 more night #ASCVD: no evidence of occlusive lesion on cardiac catheterization, s/p JON stenting 04/2013 -mildly positive troponin and CK -clopidogrel 75mg daily -asa 81mg -holding lisinopril 10mg and HCTZ 12.5mg for resolution of HERMES #HERMES - resolved #elevated WBC count -much higher at outside hospital 20.6K and 11K here (only hours between measures), this seems perhaps a laboratory discrepiancy or transient spike due to stress - resolved #T2DM -moderate ISS -holding glipizde, exenatide, metformin #Depression: - holding notryptylline as it can cause cardiac rhythm disturbances. - will discuss medication options with pt #IBS -atarax 25mg BID #Pain - Flexeril #GERD -pantoprazole PPx: DVT- hep 5000U sq q12hr GI- on pantoprazole for GERD Code Status: Full Code EDIE FLORES DO Cardiology S1 (pgr. [id number]) Cardiology Attending Addendum I have interviewed and examined the patient, reviewed the available data, and have discussed my findings, assessment and plan with the patient, Dr Berry and the [facility] team. I agree with Dr. Flores's note as above. On review of the echocardiogram there is possible very basal inferior hypokinesis and the small RCA on the coronary angiogram may give rise to a small PDA which may be occluded, however the majority of the inferior septum (mid to apical) is supplied by the wrap around LAD. A proximal scar could explain the inducible monomorphic VT. Patient still thinking about therapeutic options (medications, ICD, VT ablation). * Jennifer Harris - 01/06/2014 4:24 PM EDT System Designer Encounter Note Patient Name: Shahnaz Santiago : [id number] MR#: [id number] Admit Date: 01/06/2014 1:50 AM Hospital Day 0 days Narrative: Shahnaz was happy and open to lab tech visit. Assessment: We had a long conversation of what he considered that has been militating against a health life-style: smoking. Moreover he was not a alevism person based on his experiences over the years yet accepts prayers. Intervention and Outcome: We prayed for God's healing & strength. Follow-up: Yes Time in Direct Care: 35 mins Jennifer Zimmer Steven 01/06/2014 * Stacy Pabon RN - 01/06/2014 2:17 PM EDT Office of Care Management Clinical Leather Cleaner Patient Name: Shahnaz Santiago : 1950, 63 yrs Admission Date: 01/06/2014 1:50 AM Attending: Kenia Bauman MD Order to Admit: Signed Record reviewed and patient discussed with multidisciplinary team. Lives in [place], [place] 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 He is independent and drives. Insurance: No Insurance. (Guillermo Aaron IMPORT CLERK notified) [facility] Medical/Surgical:63 yo man with ASCVD s/p stents 2007 2 stents in LAD and LCx 2008, JON to LAD for instent restenosis 04/2013, T2DM, HTN, IBS, active smoker and GERD who presents with a 2 day hx of sudden onset dyspnea on exertion and Ventricular Tachycardic Plan: No discharge needs identified/ anticiapted at this time. CRC remains available as needed for coordination of care and discharge planning. Office of Care Management Nora PONCE RN/Stacy Pabon MSN RN Clinical Resource Coordinators Phone: [phone] Pager [phone] documented in this encounter H&P Notes * Edy Berry MD - 01/07/2014 5:02 PM EDT Inpatient Cardiac Electrophysiology Follow-up Note Date of Consultation: 01/07/2014 Admit Date: 01/06/2014 Place of Service: Inpatient Unit Reason for Consult: We are seeing Shahnaz Santiago for the evaluation of ventricular tachycardia Patient Active Problem List Diagnosis ??? ASCVD [...] Nuclear stress test at [facility] in [place], [place] May 02, 2013 during which he developed left shoulder and arm discomfort during submaximal exercise on the treadmill and after which he was converted to a pharmacologic test; nuclear imaging showed ejection fraction of 45% with a partially reversible inferior defect ?? [place] [facility] [place]: normal left main, mild diffuse disease throughout the LAD with an 80% mid stenosis representing a restenosis lesion, mild diffuse disease in the proximal obtuse marginal branch, and mild diffuse disease throughout the right coronary artery; status post 3.0 X 12 mm JON to 80%mid-LAD lesion (in-stent restenosis) ??? Depression Overview Note: --Treated with Lamictal. ??? Dermatitis ??? Irritant contact dermatitis ??? T2DM (type 2 diabetes mellitus) ??? Esophageal reflux ??? IBS (irritable bowel syndrome) ??? Diabetes mellitus ??? HTN (hypertension) Overview Note: ??? Elevated cholesterol Active Problem List: Ventricular tachycardia ASCVD Tobacco use Depression History of Present Illness: Shahnaz Santiago is a 63 y.o. male with PMH of ASCVD (PCI to Cx, LAD; no hx [place]) and tobacco use. 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 He has continued to go tocardiac rehab since then and had been doing well. On 01/04, he was walking in the [place] when he developed sudden onset shortness of breath, which made him feel wobbly. He denied chest pain, palpitations (except for unusual pulsing in right ear lobe), or syncope though he felt weak and near-syncopal with exertion intermittently. His dyspnea remained present when he awoke the next morning, and he went to [facility], where ECG showed VT. He was cardioverted with return to NSR with 1st degree AVB, sub-mm STD in the lateral leads. His troponin was indeterminate. The patient was transferred [place] [facility], where he has remained in NSR. Troponin has been mildly elevated. Currently denies CP, SOB, palpitations, PND, Orthopnea, dizziness/LH, LE swelling or pain, N/V/D/C/abd pain. He takes Lamictal for depression, and about 30 Vicodin a month for LBP. Rest of ROS non-contributory except for problems in problem list. Inpatient Medications: Reviewed in eDH ASA 81 plavix crestor Metop 12.5 BID SSI Lamictal Outpatient Medications prior to admission: Prescriptions prior to admission Medication Sig Dispense Refill ??? aspirin 81 mg EC tablet Take 1 tablet by mouth daily. 90 tablet 3 ??? rosuvastatin (CRESTOR) 20 mg tablet Take 20 mg by mouth daily. ??? zolpidem (AMBIEN) 10 mg tablet Take 10 mg by mouth nightly as needed. ??? clopidogrel (PLAVIX) 75 mg tablet Take 1 tablet by mouth daily. 30 tablet 11 ??? pantoprazole (PROTONIX) 40 mg tablet Take 1 tablet by mouth 2 times daily. 90 tablet 6 ??? nortriptyline (PAMELOR) 50 mg capsule Take 50 mg by mouth 2 times daily. ??? [place]-3 Fatty Acids (FISH OIL) 500 mg Cap Take by mouth daily. ??? multivitamin capsule Take 1 capsule by mouth daily. ??? LANCETS MISC by Misc.(Non-Drug; Combo Route) route. ??? lamotrigine (LAMICTAL) 100 mg tablet Take 100 mg by mouth daily. ??? alprazolam (XANAX XR) 3 mg 24 hr tablet Take 3 mg by mouth every morning. ? ? lactobac cmb #[id number] (PROBIOTIC & ACIDOPHILUS) 300-250 million cell- mg Cap Take by mouth daily. ??? exenatide (BYETTA) 10 mcg/0.04 mL injection Inject 5 mcg subcutaneously 2 times daily (with meals). ??? metformin (GLUCOPHAGE) 1,000 mg tablet Take 1,000 mg by mouth 2 times daily (with meals). ??? nadolol (CORGARD) 20 mg tablet Take 20 mg by mouth daily. ??? lisinopril-hydrochlorothiazide (PRINZIDE;ZESTORETIC) 10-12.5 mg per tablet Take 1 tablet by mouth daily. ??? hydrOXYzine (ATARAX) 25 mg tablet Take 25 mg by mouth 3 times daily as needed. ??? hydroCODone-acetaminophen (VICODIN) 5-500 mg per tablet Take 1 tablet by mouth every 6 hours asneeded. ??? glipizide (GLUCOTROL) 5 mg 24 hr tablet Take 5 mg by mouth daily. ??? cyclobenzaprine (FLEXERIL) 10 mg tablet Take 10 mg by mouth 2 times daily as needed. ??? nitroGLYcerin (NITROSTAT) 0.[address] 0.4 mg under the tongue every 5 minutes as needed. Allergies: Allergies Allergen Reactions ??? Tape 1X5yd (Adhesive Tape) Rash Family History: Father suddenly of cardiac arrest, pt believes due to [place] at age of 54. Heavy smoker. His mother had PVD. 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 was a smoker, in 2009 of VTE. No EtOH; 2 cups of coffe daily. Physical Exam: Vital signs: Last value Range last 24 hrs Temperature Temp: 36.7 ??C (98.1 ??F) Temp: [36.6 ??C (97.9 ??F)-37 ??C (98.6 ??F)] Heart Rate Heart Rate: 61 Heart Rate: [51-62] Blood Pressure BP: 156/65 mmHg BP: (90-156)/(45-74) Respiratory Rate Resp: 20 Resp: [10-27] SpO2 SpO2: 97 % SpO2: [96 %-100 %] well-appearing, NAD PERRLA, EOMI JVP slighly elevated RRR S1S2 no M/R/G CTA b/l no W/R/C Abd s/nt/nd Radial and DP pulses 2+ b/l; good capillary refill distally; no edema Neuro grossly intact Labs: Reviewed notable for WBC 11, hgb 13, plts 152 Cr 1.41 Mg 0.67, other lytes wnl Trop 0.05 INR 1 Pertinent Radiographic/Diagnostic Results: ECGs: OSH #1: Regular, wide-complex tachycardia, CL 350 ms, LBBB, left superior axis, positive QRS in aVR, R-S interval 130 ms, consistent with VT OSH#2: following CV - NSR, QRS 90 ms, poor R-wave progression, LAFB Cath 01/06/14: PCI not indicated (stents patent). Official report not up--but to our review there appears to be distal occlusion of RCA filling by left to right collaterals, and perhaps focal PB WMA on LV angio. EPS 01/06/14: Easily inducible monomorphic VT with double VPBs, both RBBB and LBBB morphologies. Echo: 1. The left ventricle is mildly dilated. [...] See remainder of report for additional findings. Assessment : Shahnaz Santiago is a 63 y.o. male who experienced about 26 hours of sustained monomorphic ventricular tachycardia. Interestingly, wall motion appears normal on echo (possible WMA on LV angio), despite the fact that clinically he has a typical 'scar-related' anatomic substrate for reentry. His riskof sudden appears low in the short term (preserved EF), and though he's right handed and a left DDD ICD would be reasonable (beta costa Rx likely will be limited by bradycardia--on nadolol 20mg QD RIB CLOTH KNITTER), he may opt for an elective VT ablation. He should ideally check pulse for any recurrentsymptoms of VT (e.g. Weakness, SOB) and not delay hospital presentation as he did this time. Recommend: 1. Patient instructed in checking his pulse (carotid and radial), and encouraged to check it if he feels poorly in any way, as he did not have prominent palpitations during VT. 2. He has booklet on ICD, and we also discussed benefit and risk of this procedure versus VT ablation. For completeness, we discussed Tikosyn trial (bradycardia sparing), off-label, if he wished 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 drug Rx in interim prior to ablation or to hopefully reduce risk of recurrent VT (stand-alone Rx). He's still mulling over these options. * Edy Berry MD - 01/06/2014 10:30 AM EDT Inpatient Cardiac Electrphysiology Consult Note Date of Consultation: 01/06/2014 Admit Date: 01/06/2014 Place of Service: Inpatient Unit Reason for Consult: We are seeing Shahnaz Santiago at the request of Dr. Bauman for the evaluationof ventricular tachycardia Patient Active Problem List Diagnosis ??? ASCVD [...] Nuclear stress test at [facility] in [place], [place] May 02, 2013 during which he developed left shoulder and arm discomfort during submaximal exercise on the treadmill and after which he was converted to a pharmacologic test; nuclear imaging showed ejection fraction of 45% with a partially reversible inferior defect ?? [place] [facility] [place]: normal left main, mild diffuse disease throughout the LAD with an 80% mid stenosis representing a restenosis lesion, mild diffuse disease in the proximal obtuse marginal branch, and mild diffuse disease throughout the right coronary artery; status post 3.0 X 12 mm JON to 80%mid-LAD lesion (in-stent restenosis) ??? Dermatitis ??? Irritant contact dermatitis ??? T2DM (type 2 diabetes mellitus) ??? Esophageal reflux ??? IBS (irritable bowel syndrome) ??? Diabetes mellitus ??? HTN (hypertension) Overview Note: ??? Elevated cholesterol Active Problem List: Ventricular tachycardia ASCVD Tobacco use Depression History of Present Illness: Shahnaz Santiago is a 63 y.o. male with PMH of ASCVD (PCI to Cx, LAD; no hx [place]) and tobacco use. 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 He has continued to go tocardiac rehab since then and had been doing well. On 01/04, he was walking in the shafer when he developed sudden onset shortness of breath, which made him feel wobbly. He denied chest pain, palpitations (except for unusual pulsing in right ear lobe), or syncope though he felt weak and near-syncopal with exertion intermittently. His dyspnea remained present when he awoke the next morning, and he went to [facility], where ECG showed VT. He was cardioverted with return to NSR with 1st degree AVB, sub-mm STD in the lateral leads. His troponin was indeterminate. The patient was transferred [place] [facility], where he has remained in NSR. Troponin has been mildly elevated. He is planned for cardiac cath this afternoon. Currently denies CP, SOB, palpitations, PND, Orthopnea, dizziness/LH, LE swelling or pain, N/V/D/C/abd pain. He takes Lamictal for depression, and about 30 Vicodin a month for LBP. Rest of ROS non-contributory except for problems in problem list. Inpatient Medications: Reviewed in eDH ASA 81 plavix crestor Metop 12.5 BID SSI Lamictal Outpatient Medications prior to admission: Prescriptions prior to admission Medication Sig Dispense Refill ??? aspirin 81 mg EC tablet Take 1 tablet by mouth daily. 90 tablet 3 ??? rosuvastatin (CRESTOR) 20 mg tablet Take 20 mg by mouth daily. ??? zolpidem (AMBIEN) 10 mg tablet Take 10 mg by mouth nightly as needed. ??? clopidogrel (PLAVIX) 75 mg tablet Take 1 tablet by mouth daily. 30 tablet 11 ??? pantoprazole (PROTONIX) 40 mg tablet Take 1 tablet by mouth 2 times daily. 90 tablet 6 ??? nortriptyline (PAMELOR) 50 mg capsule Take 50 mg by mouth 2 times daily. ??? Flint-3 Fatty Acids (FISH OIL) 500 mg Cap Take by mouth daily. ??? multivitamin capsule Take 1 capsule by mouth daily. ??? LANCETS MISC by Misc.(Non-Drug; Combo Route) route. ??? lamotrigine (LAMICTAL) 100 mg tablet Take 100 mg by mouth daily. ??? alprazolam (XANAX XR) 3 mg 24 hr tablet Take 3 mg by mouth every morning. ? ? lactobac cmb #0-[id number]-[id number] (PROBIOTIC & ACIDOPHILUS) 300-250 million cell- mg Cap Take by mouth daily. ??? exenatide (BYETTA) 10 mcg/0.04 mL injection Inject 5 mcg subcutaneously 2 times daily (with meals). ??? metformin (GLUCOPHAGE) 1,000 mg tablet Take 1,000 mg by mouth 2 times daily (with meals). ??? nadolol (CORGARD) 20 mg tablet Take 20 mg by mouth daily. ??? lisinopril-hydrochlorothiazide (PRINZIDE;ZESTORETIC) 10-12.5 mg per tablet Take 1 tablet by mouth daily. ??? hydrOXYzine (ATARAX) 25 mg tablet Take 25 mg by mouth 3 times daily as needed. ??? hydroCODone-acetaminophen (VICODIN) 5-500 mg per tablet Take 1 tablet by mouth every 6 hours asneeded. ??? glipizide (GLUCOTROL) 5 mg 24 hr tablet Take 5 mg by mouth daily. ??? cyclobenzaprine (FLEXERIL) 10 mg tablet Take 10 mg by mouth 2 times daily as needed. ??? nitroGLYcerin (NITROSTAT) 0.[address] 0.4 mg under the tongue every 5 minutes as needed. Allergies: Allergies Allergen Reactions ??? Tape 1X5yd (Adhesive Tape) Rash Family History: Father suddenly of cardiac arrest, pt believes due to [place] at age of 54. Heavy smoker. His mother had PVD. 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 was a smoker, in 2009 of VTE. No EtOH; 2 cups of coffe daily. Physical Exam: Vital signs: Last value Range last 24 hrs Temperature Temp: 37 ??C (98.6 ??F) Temp: [36.7 ??C (98.1 ??F)-37 ??C (98.6 ??F)] Heart Rate Heart Rate: 58 Heart Rate: [58-69] Blood Pressure BP: 111/59 mmHg BP: (102-114)/(59-84) Respiratory Rate Resp: 17 Resp: [17-20] SpO2 SpO2: 98 % SpO2: [97 %-100 %] well-appearing, NAD PERRLA, EOMI JVP slighly elevated RRR S1S2 no M/R/G CTA b/l no W/R/C Abd s/nt/nd Radial and DP pulses 2+ b/l; good capillary refill distally; no edema Neuro grossly intact Labs: Reviewed notable for WBC 11, hgb 13, plts 152 Cr 1.41 Mg 0.67, other lytes wnl Trop 0.05 INR 1 Pertinent Radiographic/Diagnostic Results: ECGs: OSH #1: Regular, wide-complex tachycardia, CL 350 ms, LBBB, left superior axis, positive QRS in aVR, R-S interval 130 ms, consistent with VT OSH#2: following CV - NSR, QRS 90 ms, poor R-wave progression, LAFB Cath today: PCI not indicated (stents patent). Official report not up--but to our review there appears to be distal occlusion of RCA filling by left to right collaterals, and perhaps focal PB WMA on LV angio. EPS today: Easily inducible monomorphic VT with double VPBs, both RBBB and LBBB morphologies. Echo: 1. The left ventricle is mildly dilated. [...] See remainder of report for additional findings. Assessment and Recommendations: Shahnaz Santiago is a 63 y.o. male who experienced about 24 hours of sustained monomorphic ventricular tachycardia. He has a history of ischemic heart disease and is possible the arrhythmia is arising from an area of scar, or that he has had another ischemic event. He will be cathed today. He has an indication for the placement of a PCM/ICD but has expressed a reluctance to have a device placed. Given that his EF is actually quite good and he tolerated the arrhythmia, it may be reasonable to attempt to ablate the VT and avoid placing a device. Will plan on EPS following cath. This may occur today, if not will be done Thursday. Even if EPS is done today and inducible VT is found, the patient wo uld prefer to delay placement of a device until he has a chance to think about it. Consult service will continue to follow patient. I have interviewed and examined Pato myself, and I agree with the findings above. I have added cath and EP results to note above. Patient has sustained reentrant monomorphic VT, which he tolerated for about 26 hours prior to cardioversion. Interestingly, wall motion appears normal on echo (possible WMA on LV angio), despite thefact that clinically he has a typical 'scar-related' anatomic substrate for reentry. His risk of sudden appears low in the short term (preserved EF), and though he's right handedand a left DDD ICD would be reasonable (beta costa Rx likely will be limited by bradycardia--on nadolol 20 mg QD RIB CLOTH KNITTER), he likely will opt for an elective VT ablation. He should ideally check pulse for any recurrent symptoms of VT (e.g. Weakness, SOB) and not delay hospital presentation as he did this time. Will discuss more with him in AM. * Kenia Bauman MD - 01/06/2014 2:45 AM EDT Cardiology Admission History and Physical Patient Name: Shahnaz Santiago Service: [address] Responsible Attending: Kenia Bauman MD, MD PCP: JENNIFER HARO MD PCP phone #: [phone] ID/Chief Complaint: 63 yo man with ASCVD s/p stents 2007 2 stents in LAD and LCx 2008, JON to LAD for instent restenosis 04/2013, T2DM, HTN, IBS, active smoker and GERD who presents with a 2 day hx of sudden onset dyspnea on exertion and ventricular tachycardia. History of Present Illness: 63 yo man with ASCVD s/p stents 2007 2 stents in LAD and LCx 2008, JON to LAD for instent restenosis 04/2013, T2DM, HTN, IBS and GERD who presents with a 2 day hx of sudden onset dyspnea on exertion and ventricular Tachycardia. The patient explains that he was feeling well until after he attended Cardiac rehab one day prior to admission. His exercise session, working on the treadmill and stairs, went fine, however after the session when he went speed walking/running in the shafer he experienced sudden onset shortness of breath. This shortness of breath persisted on his walk back. The patient denies any new chest discomfort that coincides with the exertion. He does describe a chronic, has beenaffecting him 20 years, [id number], sternally located discomfort that is constant and he feels is related to his nerves. He does endorse some tension/soreness in both his shoulders that does coincide time-hale with his his SOB. The patient went to sleep and when he woke up, the dyspnea on exertion persisted. He felt dyspneic walking 15 feet, and required rest to recover. Since thiswas a change from his baseline he went to [facility] ED for evaluation.There he was found to be tachycardic in the 160s, BP 108/64 and sating 96% on room air. An EKG revealed a monomorphic tachycardia. He was given versed 4mg, cardiovert with 120J biphasic. The patient's repeat EKG showed sinus rhythm with a 1st degree AV block NH of 214ms, as well as new T-wave inversions and sub 1mm ST depressions in V3-V6. His troponin was an indeterminate value 0.13 (0.06-0.59 =indeterminate). The patient was then [place] [facility] [place] , O[place] labs prior to transfer: 15.2 20.6 H/H 241 45.3 137 98 33 Glc Ca 9.8 4.0 23.5 2.1 260 Mg 1.7 Phos - Baseline Cr 1.0 Troponin 9/18 9PM (0.0-0.06) - 0.13 CK:-non Review of Systems: GENERAL HEENT CV PULM x All negative x All negative x All negative All negative Weight loss Headache Chest Pain Non-productive cough Weight gain Vision change Palpitations Productive cough Fevers Sinus congestion Orthopnea Wheezing Chills Hoarseness LE edema Hemoptysis Night sweats Epistaxis PND Pleuritic pain Fatigue Syncope + SOB Claudication + LLOYD MSK RENAL ENDO GI x All negative x All negative x All negative x All negative Arthralgias Frequency Heat intolerance Blood in stool Myalgias Urgency Cold intolerance Dysphagia Weakness Hematuria Polydipsia Odynophagia Stiffness Flank pain Polyphagia Abdominal discomfort Dysuria Cushingoid Constipation Foamy urine Diarrhea Discharge Nausea/Vomiting LYMPH SKIN NEURO PSYCH x All negative x All negative x All negative x All negative Swollen nodes Rash Seizures Depressed affect Tender nodes Ulcers Tremors Occupational stress Diffuse nodes Bruising Spasticity Anxiety Local nodes Tanned skin Focal weakness Insomnia Night sweats Telangiectasias Diplopia Paresthesias Dizziness Problem List/Past Medical History Patient Active Problem List Diagnosis ??? ASCVD (arteriosclerotic cardiovascular disease) ?? Heart catheterization in [facility] [...] Nuclear stress test at [facility] in [place], [place] May 02, 2013 during which he developed left shoulder and arm discomfort during submaximal exercise on the treadmill and after which he was converted to a pharmacologic test; nuclear imaging showed ejection fraction of 45% with a partially reversible inferior defect ?? [place] [facility] [place]: normal left main, mild diffuse disease throughout the LAD with an 80% mid stenosis representing a restenosis lesion, mild diffuse disease in the proximal obtuse marginal branch, and mild diffuse disease throughout the right coronary artery; status post 3.0 X 12 mm JON to 80%mid-LAD lesion (in-stent restenosis) ??? Dermatitis ??? Irritant contact dermatitis ??? T2DM (type 2 diabetes mellitus) ??? Esophageal reflux ??? IBS (irritable bowel syndrome) ??? Diabetes mellitus ??? HTN (hypertension) ??? Elevated cholesterol Meds: Your Medications As of 01/06/2014 3:53 AM UNREVIEWED medications - Discuss With Your Provider Dose Details ALPRAZolam 3 mg Tablet sr Commonly known as: XANAX XR Take 3 mg by mouth every morning. 3 mg Refills: 0 AMBIEN 10 mg Tab Take 10 mg by mouth nightly as needed. Generic drug: zolpidem 10 mg Refills: 0 aspirin 81 mg Tbec Take 1 tablet by mouth daily. 81 mg Quantity: 90 tablet Refills: 3 clopidogrel 75 mg Tab Commonly known as: PLAVIX Take 1 tablet by mouth daily. 75 mg Quantity: 30 tablet Refills: 11 cyclobenzaprine 10 mg Tab Commonly known as: FLEXERIL Take 10 mg by mouth 2 times daily as needed. 10 mg Refills: 0 exenatide 10 mcg/dose(250 mcg/mL) 2.4 mL Pnij Commonly known as: BYETTA Inject 5 mcg subcutaneously 2 times daily (with meals). 5 mcg Refills: 0 FISH OIL 500 mg Cap Take by mouth daily. Generic drug: Flint-3 Fatty Acids Refills: 0 glipiZIDE 5 mg Tr24 Commonly known as: GLUCOTROL Take 5 mg by mouth daily. 5 mg Refills: 0 HYDROcodone-acetaminophen 5-500 mg Tab Commonly known as: VICODIN Take 1 tablet by mouth every 6 hours as needed. 1 tablet Refills: 0 hydrOXYzine 25 mg Tab Commonly known as: ATARAX Take 25 mg by mouth 3 times daily as needed. 25 mg Refills: 0 lamoTRIgine 100 mg Tab Commonly known as: LaMICtal Take 100 mg by mouth daily. 100 mg Refills: 0 LANCETS MISC by Misc.(Non-Drug; Combo Route) route. Refills: 0 lisinopril-hydrochlorothiazide 10-12.5 mg Tab Commonly known as: PRINZIDE;ZESTORETIC Take 1 tablet by mouth daily. 1 tablet Refills: 0 metFORMIN 1,000 mg Tab Commonly known as: GLUCOPHAGE Take 1,000 mg by mouth 2 times daily (with meals). 1000 mg Refills: 0 multivitamin Cap Take 1 capsule by mouth daily. 1 capsule Refills: 0 nadolol 20 mg Tab Commonly known as: CORGARD Take 20 mg by mouth daily. 20 mg Refills: 0 nitroGLYcerin 0.4 mg Subl Commonly known as: NITROSTAT Place 0.4 mg under the tongue every 5 minutes as needed. 0.4 mg Refills: 0 nortriptyline 50 mg Cap Commonly known as: PAMELOR Take 50 mg by mouth 2 times daily. 50 mg Refills: 0 pantoprazole 40 mg Tbec Commonly known as: PROTONIX Take 1 tablet by mouth 2 times daily. 40 mg Quantity: 90 tablet Refills: 6 PROBIOTIC & ACIDOPHILUS 300-250 million cell-mg Cap Take by mouth daily. Generic drug: lactobac cmb #2-[id number] Refills: 0 rosuvastatin 20 mg Tab Commonly known as: CRESTOR Take 20 mg by mouth daily. 20 mg Refills: 0 Allergies: Allergies Allergen Reactions ??? Tape 1X5yd (Adhesive Tape) Rash Family History: No family history on file. Social History: History Substance Use Topics ??? Smoking status: Current Every Day Smoker -- 0.7 packs/day for 25 years Types: Cigarettes ??? Smokeless tobacco: Never Used ??? Alcohol Use: No Vitals: Last value Range last 24 hrs Temperature Temp: 36.7 ??C (98.1 ??F) Temp: [36.7 ??C (98.1 ??F)] Heart Rate Heart Rate: 69 Heart Rate: [69] Blood Pressure BP: 112/65 mmHg BP: (112)/(65) Respiratory Rate Resp: 17 Resp: [17] SpO2 SpO2: 98 % SpO2: [98 %] Examination: General: Pleasant, alert, appropriate, in NAD. Appears stated age. HEENT: EOMI, PERRL, anicteric sclera. Oropharynx clear w/o lesions. Moist mucous membranes Neck: Supple with normal ROM. Lymph: No obvious cervical, axillary, epitrochlear or inguinal LAD Cardiac: Normal S1 and S2, Regular rate and rhythm; No murmrs/gallops/rubs. JVD was elevated at 11cm above RA. Respiratory: Nonlabored. Clear to auscultation bilaterally; No wheezes/ rhonci/ rales. Abd: + BS; soft, non-tender, non-distended, no obvious masses. Ext: WWP without le edema, cyanosis or clubbing. DPP 2+ bilaterally. Neuro: II-XII grossly intact. Alert and orientated, no-focal deficits, sensation intact to crude touch Skin: No obvious rashs, lesions or petechiae Laboratory: Recent Labs Basename 01/06/14 0250 WBC 11.0* HGB 13.0* HCT 39.2* PLATELET 152 NEUTROABS 6.93* Recent Labs Basename 01/06/14 0250 NA 140 K 4.4 CL 102 CO2 25 BUN 31* CREATININE 1.41 No results found for this basename: AST:3,ALT:3,ALKPHOS:3,BILITOT:3,BILIDIR:3 in the last 168 hours Recent Labs Basename 01/06/14 0250 CALCIUM 9.8 MAGNESIUM 0.67* PHOS -- No results found for this basename: PT:5,PTT:5,THROMBIN TIME:5,FIBRINOGEN:5,DDIMER:5 in the last 168 hours No results found for this basename: LDH:3,URICACID:3 in the last 168 hours Other Labs: None Microbiology: none Relevant Diagnostic Studies: CXR- ordered but not yet performed ASSESSMENT: 63 yo man with ASCVD s/p stents 2007 2 stents in LAD and LCx 2008, JON to LAD for instent restenosis 04/2013, T2DM, HTN, IBS, active smoker and GERD who presents with a 2 day hx of sudden onset dyspnea on exertion and Ventricular Tachycardic. The patient is hemodynamically stable, and no signs of ectopy on telemetry, however, suspect structural heart disease may be the etiology of his arrhythmia. The patient responded well to cardioversion, so holding on amiodarone, additionally this could interfere with EP study in AM. It is possible that the patient has a NSTEMI, suspicion is low overall - given low troponin, T-wave inversions could be explained by 24hrs of rapid rate, and absence of anginal symptoms, nevertheless, the patient has no contraindications to bleeding and there is a potentialthat ischemia triggered his monomorphic VT. PLAN: #admit Cardiology S1 Service #VT from suspected structural heart disease -s/p cardioversion -possible EP study in AM -TTE as low EF would more clearly qualify for ICD placement -serial EKGS -CE two more sets #ASCVD, possible NSTEMI -mildly positive troponin and CK -heparin gtt -clopidogrel 75mg daily -asa 81mg -holding lisinopril 10mg and HCTZ 12.5mg for resolution of HERMES #HERMES -by hx no obvious suspicion of decrease PO intake or urinary obstruction, possibly decreased CO from tachycardia causing prerenal azotemia -Cr improved from outside hospital value 1.4<--2.0 -FeNa to aid in prerenal diagnosis #elevated WBC count -much higher at outside hospital 20.6K and 11K here (only hours between measures), this seems perhaps a laboratory discrepiancy or transient spike due to stress #T2DM -moderate ISS -holding glipizde, exenatide, metformin IBS -notryptylline -flexeril -atarax 25mg BID GERD -pantoprazole PPx: DVT- hep 5000U sq q12hr GI- on pantoprazole for GERD Code Status: Full Code Dispo- home in 2-3 days pending evaluation of possible ischemia Kalyan Babb, PGY-2 Team Pager # [phone] Cardiology Attending Addendum I have interviewed and examined the patient, reviewed the available data, and have discussed my findings, assessment and plan with the patient and the S1 team on CVCC rounds today. I agree with Dr. Babb's note as above. Furthermore, cardiac enzymes were mildly elevated: Results for SHAHNAZ SANTIAGO ( ) as of 01/06/2014 14:19 Ref. Range 01/06/2014 02:50 01/06/2014 11:30 01/06/2014 12:40 Troponin-T Latest Range: <=0.03 ng/mL 0.05 (H) Not Perf 0.10 (H) CK, Total Latest Range: 0-200 unit/L 101 132 127 No further ventricular ectopy since admission. Echocardiogram today without evidence for SWMA. Willperform cardiac catheterization today to rule out significant coronary stenosis (as ischemia could have triggered sustained ventricular tachycardia) and request EP input regarding further management of sustained VT (particularly if no significant coronary stenosis can be identified). documented in this encounter Procedure Notes * Provider, Scanning - 01/12/2014 11:50 AM EDTAssociated Order(s): SCAN DOC: MILK RUNNER documented in this encounter Miscellaneous Notes * Miscellaneous - Provider, Scanning - 01/12/2014 11:49 AM EDT * Miscellaneous - Provider, Scanning - 01/12/2014 11:45 AM EDT * Discharge Summary - Kenia Bauman MD - 01/11/2014 12:45 PM EDT Cardiology - Discharge Summary Patient Name: Shahnaz Santiago Patient Age: 63 y.o. Birthdate: 1950 Admit date: 01/06/2014 Discharge date and time: 01/11/2014 Attending Physician: Kenia Bauman MD Follow-up Recommendations for Providers: ?? VT Storm-ICD placed without issues. Patient to follow up with EP. ?? Hypertension- Please follow up blood pressure and heart rate. ?? Hypomagnesemia- Pt started on supplementation. ?? Depression- Nortriptyline discontinued given associated increased risk with sudden cardiac . Consider an alternative medication (SSRI) versus drug holiday as pt reports stable mood for years. Discharge Diagnoses (Hospital Problems) and Secondary Diagnoses (Chronic Problems): Active Hospital Problems Diagnosis ??? Sustained VT (ventricular tachycardia) ??? ASCVD (arteriosclerotic cardiovascular disease) Priority: High ??? ICD (implantable cardioverter-defibrillator), dual, in situ ??? Hypertension ??? Hypomagnesemia ??? Depression Resolved Hospital Problems Diagnosis Date Resolved No resolved problems to display. Operations/Major Procedures: Cardiac Catheterization (see full report below) History of Presentation: Per HPI on 01/06/2014 63 yo man with ASCVD s/p stents 2008 2 stents in LAD and LCx 2008, JON to LAD for instent restenosis 04/2013, T2DM, HTN, IBS and GERD who presents with a 2 day hx of sudden onset dyspnea on exertion and Ventricular Tachycardic. The patient explains that he was feeling well until after he attended Cardiac rehab one day prior to admission. His exercise session, working on the treadmill and stairs, went fine, however after the session when he went speed walking/running in the shafer he experienced sudden onset shortness of breath. This shortness of breath persisted on his walk back. The patient denies any new chest discomfort that coincides with the exertion. He does describe a chronic, has beenaffecting him 20 years, kstgxewqk-up-marwzmjzzu, sternally located discomfort that is constant and he feels is related to his nerves. He does endorse some tension/soreness in both his shoulders that does coincide time-hale with his his SOB. The patient went to sleep and when he woke up, the dyspnea on exertion persisted. He felt dyspneic walking 15 feet, and required rest to recover. Since thiswas a change from his baseline he went to [facility] ED for evaluation.There he was found to be tachycardic in the 160s, BP 108/64 and sating 96% on room air. An EKG revealed a monomorphic tachycardia. He was given versed 4mg, cardiovert with 120J biphasic. The patient's repeat EKG showed sinus rhythm with a 1st degree AV block NH of 214ms, as well as new T-wave inversions and sub 1mm ST depressions in V3-V6. His troponin was an indeterminate value 0.13 (0.06-0.59 =indeterminate). [place] [facility] [place] Course: # Ventricular tachycardia The patient arrived status post cardioversion in sinus rhythm and was asymptomatic. As he was hemodynamically stable, the addition of amiodarone was deferred. As he was on nadolol at home, this was discontinued and he was started on metoprolol, which is cardioselective. Review of his rhythm pre-cardioversion was consistent with monomorphic ventricular tachycardia. 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 He underwent coronary catheterization with the result below (old distal RCA occlusion and non-hemodynamically significant LAD in-stent restenosis). A TTE was performed to evaluate for structural abnormalities and was notable for an EF 56% without wall motion abnormalities (on official report) but on careful review basal inferior hypokinesis. An electrophysiology study was performed to assess for inducible VT and was notablefor inducible monomorphic VT of cycle length 400-450 ms which was easily elicited with stimulation of the inferior aspect of the right ventricular apex and high right ventricular septum. No accessorytract was found and atrioventricular conduction was preserved. The treatment options were discussed with patient, including ICD placement, medical management withdofetilide, and VT ablation. ICD was placed on 01/10, chest X-ray was performed showing no evidence of pneumothorax or complication. He received post-procedure antibiotics per protocol. Electrophysiology will schedule follow up. # Hypertension The patient's blood pressure was well-controlled with lisinopril 20 mg daily. # Hypomagnesemia The patient underwent parenteral supplementation and was started on oral supplementation at discharge. The etiology was unclear, but reportedly the patient was previously on HCTZ, which had been discontinued one month ago. # Depression Nortriptyline was discontinued as it is associated with an increased risk of sudden cardiac . With discontinuation, the patient reported feeling restless, possibly a mild withdrawal reaction. This was alleviated with lorazepam. The patient reported stable mood for several years and therefore may not need anti-depressive medications. # Tobacco use The patient reported resuming smoking (1 pack/day) after moving back to [place]. A consult to smoking cessation was placed and he was strongly encouraged to quit smoking. Nicotine replacement was offered on discharge. Important Studies and Lab Data: Recent Labs Basename 01/11/1435501/10/1442001/09/14 0432 01/08/14 0703 01/07/14 0340 WBC 10.8* 8.8 8.0 7.5 8.9 HGB 12.9* 13.6* 14.5 11.8* 11.4* PLATELET 171 177 184 143* 137* Recent Labs Basename 01/11/14 03501/10/14 0421 01/09/14 0432 01/08/14 0703 01/07/14 1000 01/07/14 0340 NA 139 139 141 140 -- 140 K 4.0 4.3 4.2 3.9 4.3 -- CL 103 102 102 103 -- 103 CO2 22 25 24 24 -- 26 BUN 18 17 15 16 -- 20 CREATININE 0.83 0.91 0.87 0.74* -- 0.81 GLUCOSE 137 161 124 133 -- 93 Recent Labs Basename 01/11/14 03501/10/14 0421 01/09/14 0432 CALCIUM 8.9 9.7 10.0 MAGNESIUM 0.70 0.67* 0.76 PHOS -- -- -- Recent Labs Basename 01/06/14 1240 01/06/14 1130 01/06/14 0250 CK 127 132 101 TROPONINT 0.10* Not Perf 0.05* No results found for this basename: AST:3,ALT:3,ALKPHOS:3,BILITOT:3,BILIDIR:3 in the last 168 hours No results found for this basename: INR:3 in the last 168 hours Lab Results Component Value Date CHLPL 55 01/06/2014 HDL 26* 01/06/2014 CHOLHDL 2.1 01/06/2014 TRIG 148 01/06/2014 LDLCHOL -1 01/06/2014 LDLDIRECT 13 01/06/2014 No results found for this basename: HA1C in the last 7068 hours Studies: TTE (01/06/14) 1. The left ventricle is mildly dilated. [...] See remainder of report for additional findings. Cardiac Catheterization (01/09/2014) Dominance: Right Left Main The left main was normal. Left Anterior Descending There was mild diffuse disease of the entire vessel segment of the left anterior descending artery (LAD). The mid segment of the LAD had a hazy single discrete 50% stenosis. This lesion represented in-stent restenosis following a prior coronary stent insertion. Left Circumflex There was mild diffuse disease of the entire vessel segment of the left circumflex artery (LCX). Right Coronary Artery There was moderate diffuse disease of the proximal segment of the right coronary artery (RCA). The RCA was small. The distal segment of the RCA had a single discrete total occlusion. Distal flow was via bridging collaterals. The distal vessel was small. Intravascular Imaging/Physiology: Fractional flow reserve was performed to assess the 50% stenosis in the mid LAD using a 6 Fr EBU 4.0 guiding catheter and a Verrata wire. Adenosine 140 mcg/kg/min intravenous infusion was administered. Wire delivery was successful. The FFR across the 50% mid LAD lesion was 0.85. This lesion was not hemodynamically signficant. Lesions are considered to be hemodynamically significant if the FFR is less than 0.80. Instantaneous wave-free ratio (iFR) was determined across the 50% stenosis in the mid LAD using a 6 Fr EBU 4.0 guiding catheter and a Verrata wire. Wire delivery was successful. The IFR across the 50% mid LAD lesion was 0.89. This lesion was not hemodynamically signficant. Lesions are generally considered to be hemodynamically significant if the iFR is less than 0.88, and are considered to be indeterminate in the range from 0.88 to 0.97. Additional Findings: 0.93 on repeat. Vascular Access Angiogram: A selective angiogram at the right femoral artery revealed no significant obstructive disease. Vascular Closure Device: A 6 Fr Perclose was deployed at the right femoral artery access site. This device was successful. Conclusions: * Two vessel coronary artery disease (LAD and RCA) * Elevated left ventricular end diastolic pressure * LAD restenosis not hemodynamically significant by FFR. Electrophysiology study (01/06/14) 1) The patient was in sinus rhythm at baseline. Measurements assessed during sinus rhythm at a cycle length (CL) of 1070 ms were as follows: NH: 230 ms HV: 40 ms (?) QRS: 110 ms (no manifest pre-excitation) QT: 450 ms 2) Atrial overdrive pacing (10 mA @ 2 ms) was accomplished from the low right atrium, and the atrioventricular (AV) Wenckebach block CL was observed at 500 ms. There was no pre-excitation or conduction aberrancy identified. The eppezfaj-bk-KRN < QRS-QRS just prior to the observed AV Wenckebach block CL, and no echo beats were elicited. 3) Pacing was accomplished from the high septal aspect of the right ventricle. Ventriculo-atrial (VA) conduction was not observed while pacing at a CL of 600 ms. 4) Ventricular programmed electrical stimulation was accomplished from near the inferior aspect of the right ventricular apex. The local ventricular effective refractory period (10 mA @ 2 ms) was 300ms. [S1 600 ms / S2 300 ms / S3 280 ms] reproducibly elicited sustained monomorphic ventricular tachycardia of CL 400- 450 ms; the morphology was left bundle branch superior rightward axis, and it reproducibly was pace-terminated by pacing the same site at a CL of 320 ms. Similarly, the high right ventricular septum was paced, and a faster ventricular tachycardia (VT) almost immediately morphed tothe same VT as that repeatedly elicited earlier from near the right ventricular apex. An efoot to pace- terminate this VT resulted in possible reversal of the circuit (right bundle branch block inferior axis); this was pace-terminated via ventrcilar burst pacing at a CL of 300 ms. Even just rapid ventricular pacing at a CL of 340 ms reinduced the first tachycardia, which again was pace-terminated at a CL of 320 ms. The patient's systolic blood pressure dropped from the 130-140 mm Hg range to 100-110 mm Hg range during the VT, but he did not complain of chest discomfort or lightheadedness (though he knew himself to be in tachycardia again). Results: 1) No finding of a functioning accessory pathway. 2) Preserved atrioventricular conduction. 3) Monomorphic ventricular tachycardia (possibly manifest with activation of the same circuit in opposite directions in conjunction with different inductions) of cycle length 400-450 ms was easily elicited. Discharge Conditions/Prognosis: Ventricular Tachycardia, s/p ICD placement Discharge to: Home Discharge Medications: Your Medications As of 01/11/2014 11:15 PM New Medications Dose Details lisinopril 20 mg Tab Commonly known as: PRINIVIL;ZESTRIL Take 1 tablet by mouth daily. 20 mg Quantity: 30 tablet Refills: 12 magnesium oxide 400 mg Tab Commonly known as: MAG-OX Take 1 tablet by mouth daily. 400 mg Quantity: 30 tablet Refills: 12 metoprolol succinate 50 mg Tablet sr Commonly known as: TOPROL-XL Take 2 tablets by mouth daily. 100 mg Quantity: 30 tablet Refills: 12 nicotine 21 mg/24 hr Pt24 Commonly known as: NICODERM CQ Place 1 patch onto the skin daily. 1 patch Quantity: 28 patch Refills: 3 oxyCODONE-acetaminophen 5-325 mg Tab Commonly known as: PERCOCET Take 1 tablet by mouth every 4 hours as needed for Pain. Do not take with Xanax or ambien. Do not take with alcohol. Do not drive while you are taking oxycodone 1 tablet Quantity: 15 tablet Refills: 0 Continued medications, unchanged Dose [...] 81 mg Quantity: 90 tablet Refills: 3 clopidogrel 75 mg Tab Commonly known as: PLAVIX Take 1 tablet by mouth daily. 75 mg Quantity: 30 tablet Refills: 11 cyclobenzaprine 10 mg Tab Commonly known as: FLEXERIL Take 10 mg by mouth 2 times daily as needed. 10 mg Refills: 0 exenatide 10 mcg/dose(250 mcg/mL) 2.4 mL Pnij Commonly known as: BYETTA Inject 5 mcg subcutaneously 2 times daily (with meals). 5 mcg Refills: 0 FISH OIL 500 mg Cap Take by mouth daily. Generic drug: Flint-3 Fatty Acids Refills: 0 glipiZIDE 5 mg Tr24 Commonly known as: GLUCOTROL Take 5 mg by mouth daily. 5 mg Refills: 0 HYDROcodone-acetaminophen 5-500 mg Tab Commonly known as: VICODIN Take 1 tablet by mouth every 6 hours as needed. 1 tablet Refills: 0 hydrOXYzine 25 mg Tab Commonly known as: ATARAX Take 25 mg by mouth 3 times daily as needed. 25 mg Refills: 0 lamoTRIgine 100 mg Tab Commonly known as: LaMICtal Take 100 mg by mouth daily. 100 mg Refills: 0 LANCETS MISC by Misc.(Non-Drug; Combo Route) route. Refills: 0 metFORMIN 1,000 mg Tab Commonly known as: [...] by mouth daily. Generic drug: lactobac cmb #[id number] Refills: 0 rosuvastatin 20 mg Tab Commonly known as: CRESTOR Take 20 mg by mouth daily. 20 mg Refills: 0 STOPPED Medications lisinopril-hydrochlorothiazide 10-12.5 mg Tab Commonly known as: PRINZIDE;ZESTORETIC nadolol 20 mg Tab Commonly known as: CORGARD nortriptyline 50 mg Cap Commonly known as: LISET Peoples Allergies/ADRs: Allergies Allergen Reactions ??? Tape 1X5yd (Adhesive Tape) Rash Patient Instructions Instructions on Discharge to Home Why you were hospitalized - You were hospitalized for shortness of breath in the setting of an abnormal heart rhythm. This rhythm can be precipitated by poor perfusion of the heart's electrical conduction system and therefore you underwent a cardiac catheterization which showed that your coronary arteries were patent. A sonogram of the heart and an electrophysiologic study was performed which wassuggestive of a scar in your heart which may be the source of this abnormal rhythm. An ICD was placed. A follow up appointment with electrophysiology will be made to determine which of these options to pursue. Note several changes in your medications. Nortriptyline was stopped given the associated increased risk of sudden cardiac with this medication. An alternative anti-depressive may be pursued; alternatively, you may consider a drug holiday as you have been without significant depressive symptoms for years. I would consider exploring The Feeling Good Book by Dr. Bony Celis for helpful information regarding cognitive behavioral therapy, which is often used as a treatment adjunct for depression. For your ventricular tachycardia, metoprolol was started and nadolol was discontinued. As you were found to have low magnesium, you were given magnesium and started on supplementation. It is very important that you stop smoking. If you need further assistance, please discuss with your primary care physician for treatment options. Call your doctor or seek medical attention if you develop the following - chest pain, shortness of breath, fever, cough, weakness in an arm or leg Activity level - no restrictions Diet - no change in previous diet Driving - as before hospitalization Shower/Bath - permitted Wound Care - none Home Oxygen therapy - n/a Follow-up: Future Appointments Date Time Provider Department Center 02/07/2014 8:10 AM Kit Self MD [facility] Cardio [facility] Follow-Up Appointments Date and Time Provider and Specialty Location Jan 13, 2014 @ 2:[address] [facility] Your Inpatient Doctor: Kenia Bauman MD Your Primary Care Provider: JENNIFER HARO MD [phone] For questions regarding this document or issues relating to this hospitalization on the Medical Service, please contact your inpatient physician through [place] [facility] [place] [facility] . Issues afterhours and on weekends will be handled by the Hospitalist staff on-call. Future Appointments and Orders Future Appointments: Provider: Department: Dept Phone: Center: 02/07/2014 8:10 AM Kit Self MD Cardiology [phone] [facility] Joint Appt Nurse One Cardiology Antoni, NAHUN MOTLEY 4A [phone] [facility] 04/10/2014 9:30 AM Raul Salmeron RN Cardiology [phone] [facility] For questions regarding this document or issues relating to this hospitalization on the Medical Service, please contact your inpatient physician through [place] [facility] [place] [facility] . Issues afterhours and on weekends will be handled by the [employer] staff on-call. Signed: KENIA BAUMAN MD * Plan of Care - Yamile Raya RN - 01/10/2014 3:43 AM EDT Problem: Pain, Acute (Adult, Obstetrics) Goal: Identify Signs and Symptoms and Related Risk Factors Signs and symptoms and related risk factors are identified upon initiation of Human Response Clinical Practice Guideline (CPG) Outcome: Absent and monitoring Patient has had no c/o pain during this shift. Problem: Skin Integrity Impairment, Risk/Actual (Adult, Obstetrics) Goal: Identify Signs and Symptoms and Related Risk Factors Signs and symptoms and related risk factors are identified upon initiation of Human Response Clinical Practice Guideline (CPG) Outcome: Therapy, goal partially met Patient stated he has had an old pressure ulcer present on his coccyx. Area is red, but blanchable.Zinc oxide cream given to patient per his request. Instructed on importance of turning every two hours. Is able to ambulate independently, and has walked in hallway. Problem: Fall/Trauma/Injury Risk (Adult, Obstetrics) Goal: Identify Signs and Symptoms and Related Risk Factors Signs and symptoms and related risk factors are identified upon initiation of Human Response Clinical Practice Guideline (CPG) Outcome: Absent and monitoring Patient can independently ambulate in room and in salmeron. No dizziness noted. * Consult Note - Roseann Ga RN - 01/09/2014 3:17 PM EDT Consult received for Cardiac Rehab. He has a h/o prior PCI's and is currently enrolled in the out pt CR program at [facility]. He was admitted with LLOYD and VT. Cardiac cath showed no ischemic etiology of sx. Being considered for ICD. Will refer him back to the [facility] prog at discharge * Miscellaneous - Provider, Scanning - 01/07/2014 2:41 PM EDT * Op Note - José Manuel Cole MD - 01/06/2014 5:34 PM EDT Electrophysiology Study [employer]: José Manuel Cole MD Indication: Ventricular tachycardia Method: The patient was not taking 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 medication prior to this procedure. The service attending reviewed the nature of the procedure, procedural goals, and associated risks and limitations of the planned intervention with the patient. All of his questions were answered. After confirmation of her informed consent, the patient was brought to the biplane Electrophysiology Laboratory in the fasting state. A time out was accomplished. Continuous electrocardiographic monitoring was instituted. Sedation was accomplished with incremental intravenous doses of midazolam and fentanyl. The right femoral region and the right base of the neck were prepared and draped in the usual sterile manner. Local anesthesia was achieved with a 1:1 mixture of 2% lidocaine and 0.5% bupivacaine administered subcutaneously. The following hemostatic sheaths (all with sidearms and flushed) were inserted utilizing a modified Seldinger technique. Electrode catheters were positioned under fluoroscopic guidance as follows: Sheath Catheter Electrodes Insertion Site Target 5 Fr 5 Fr 4 Left femoral vein Right atrium 6 Fr 10 Fr 10 Left femoral vein His bundle 5 Fr 5 Fr 4 Left femoral vein Right ventricle At the conclusion of testing, catheters and sheaths were removed, and hemostasis was achieved via manual compression. The patient tolerated the procedure well, with no apparent acute complications. He was transferred to the recovery area in stable condition with no drains in place. Fluoroscopy time2.36 minutes, dose area product 1199 cGy.cm2. Findings: 1) The patient was in sinus rhythm at baseline. Measurements assessed during sinus rhythm at a cycle length (CL) of 1070 ms were as follows: NH: 230 ms HV: 40 ms (?) QRS: 110 ms (no manifest pre-excitation) QT: 450 ms 2) Atrial overdrive pacing (10 mA @ 2 ms) was accomplished from the low right atrium, and the atrioventricular (AV) Wenckebach block CL was observed at 500 ms. There was no pre-excitation or conduction aberrancy identified. The [id number] < QRS-QRS just prior to the observed AV Wenckebach block CL, and no echo beats were elicited. 3) Pacing was accomplished from the high septal aspect of the right ventricle. Ventriculo-atrial (VA) conduction was not observed while pacing at a CL of 600 ms. 4) Ventricular programmed electrical stimulation was accomplished from near the inferior aspect of the right ventricular apex. The local ventricular effective refractory period (10 mA @ 2 ms) was 300ms. [S1 600 ms / S2 300 ms / S3 280 ms] reproducibly elicited sustained monomorphic ventricular tachycardia of CL 400- 450 ms; the morphology was left bundle branch superior rightward axis, and it reproducibly was pace-terminated by pacing the same site at a CL of 320 ms. Similarly, the high right ventricular septum was paced, and a faster ventricular tachycardia (VT) almost immediately morphed tothe same VT as that repeatedly elicited earlier from near the right ventricular apex. An efoot to pace- terminate this VT resulted in possible reversal of the circuit (right bundle branch block inferior axis); this was pace-terminated via ventrcilar burst pacing at a CL of 300 ms. Even just rapid ventricular pacing at a CL of 340 ms reinduced the first tachycardia, which again was pace-terminated at a CL of 320 ms. The patient's systolic blood pressure dropped from the 130-140 mm Hg range to 100-110 mm Hg range during the VT, but he did not complain of chest discomfort or lightheadedness (though he knew himself to be in tachycardia again). Results: 1) No finding of a functioning accessory pathway. 2) Preserved atrioventricular conduction. 3) Monomorphic ventricular tachycardia (possibly manifest with activation of the same circuit in opposite directions in conjunction with different inductions) of cycle length 400-450 ms was easily elicited. * OR Attestation - José Manuel Cole MD - 01/06/2014 5:34 PM EDT Attestation: Case Date: 01/06/2014 I performed this procedure without the involvement of a resident. JOSÉ MANUEL COLE MD 01/06/2014 documented in this encounter Plan of Treatment Upcoming Encounters Date Type Department Care Team (Late st Contact Info) Description 12/18/2023 10:00 AM EDT Hospital Encounter [place] [id number] Arrived documented as of this encounter Procedures Procedure Name Priority Date/Time Associated Diagnosis Comments MILK RUNNER SCAN 01/12/2014 11:50 AM EDT POCT GLUCOSE Routine 01/11/2014 11:55 AM EDT XR CHEST PA AND LATERAL Routine 01/12/20 14 8:24 AM EDT POCT GLUCOSE Routine 01/11/2014 8:03 AM EDT HEMOGRAM Routine 01/11/2014 3:56 AM EDT DIFFERENTIAL, AUTOMATED Routine 01/12/20 14 3:56 AM EDT CBC (WITH DIFF) Routine 01/11/2014 3:56 AM EDT MAGNESIUM Routine 01/11/2014 3:56 AM EDT BASIC METABOLIC PANEL (NON-FASTING) Routine 01/11/2014 3:56 AM EDT POCT GLUCOSE Routine 01/11/2014 3:46 AM EDT POCT GLUCOSE Routine 01/10/2014 11:57 PM EDT POCT GLUCOSE Routine 01/10/2014 8:31 PM EDT POCT GLUCOSE Routine 01/10/2014 6:04 PM EDT ELECTROPHYSIOLOGY PROCEDURE Routine 01/10/2014 5:19 PM EDT POCT GLUCOSE Routine 01/10/2014 11:39 AM EDT POCT GLUCOSE Routine 01/10/2014 7:36 AM EDT POCT GLUCOSE Routine 01/10/2014 4:25 AM EDT HEMOGRAM Routine 01/10/2014 4:21 AM EDT DIFFERENTIAL, AUTOMATED Routine 01/11/20 4:21 AM EDT CBC (WITH DIFF) Routine 01/10/2014 4:21 AM EDT MAGNESIUM Routine 01/10/2014 4:21 AM EDT BASIC METABOLIC PANEL (NON-FASTING) Routine 01/10/2014 4:21 AM EDT POCT GLUCOSE Routine 01/09/2014 11:25 PM EDT POCT GLUCOSE Routine 01/09/2014 8:03 PM EDT POCT GLUCOSE Routine 01/09/2014 4:34 PM EDT POCT GLUCOSE Routine 01/09/2014 11:44 AM EDT POCT GLUCOSE Routine 01/09/2014 7:51 AM EDT HEMOGRAM Routine 01/09/2014 4:32 AM EDT DIFFERENTIAL, AUTOMATED Routine 01/10/20 4:32 AM EDT CBC (WITH DIFF) Routine 01/09/2014 4:32 AM EDT MAGNESIUM Routine 01/09/2014 4:32 AM EDT BASIC METABOLIC PANEL (NON-FASTING) Routine 01/09/2014 4:32 AM EDT POCT GLUCOSE Routine 01/09/2014 4:19 AM EDT POCT GLUCOSE Routine 01/09/2014 1:41 AM EDT POCT GLUCOSE Routine 01/08/2014 11:19 PM EDT POCT GLUCOSE Routine 01/08/2014 7:50 PM EDT POCT GLUCOSE Routine 01/08/2014 5:17 PM EDT POCT GLUCOSE Routine 01/08/2014 2:21 PM EDT POCT GLUCOSE Routine 01/08/2014 12:04 PM EDT POCT GLUCOSE Routine 01/08/2014 7:56 AM EDT HEMOGRAM Routine 01/08/2014 7:03 AM EDT DIFFERENTIAL, AUTOMATED Routine 01/09/20 7:03 AM EDT CBC (WITH DIFF) Routine 01/08/2014 7:03 AM EDT MAGNESIUM Routine 01/08/2014 7:03 AM EDT BASIC METABOLIC PANEL (NON-FASTING) Routine 01/08/2014 7:03 AM EDT POCT GLUCOSE Routine 01/08/2014 3:55 AM EDT POCT GLUCOSE Routine 01/07/2014 11:51 PM EDT POCT GLUCOSE Routine 01/07/2014 9:32 PM EDT POCT GLUCOSE Routine 01/07/2014 7:36 PM EDT POCT GLUCOSE Routine 01/07/2014 5:32 PM EDT POCT GLUCOSE Routine 01/07/2014 1:24 PM EDT POTASSIUM Routine 01/07/2014 10:00 AM EDT MAGNESIUM Routine 01/07/2014 10:00 AM EDT POCT GLUCOSE Routine 01/07/2014 9:23 AM EDT HEMOGRAM Routine 01/07/2014 3:40 AM EDT DIFFERENTIAL, AUTOMATED Routine 01/08/20 3:40 AM EDT CBC (WITH DIFF) Routine 01/07/2014 3:40 AM EDT MAGNESIUM Routine 01/07/2014 3:40 AM EDT BASIC METABOLIC PANEL (NON-FASTING) Routine 01/07/2014 3:40 AM EDT POCT GLUCOSE Routine 01/07/2014 3:39 AM EDT POCT GLUCOSE Routine 01/06/2014 11:40 PM EDT POCT GLUCOSE Routine 01/06/2014 9:23 PM EDT POCT GLUCOSE Routine 01/06/2014 6:42 PM EDT ELECTROPHYSIOLOGY PROCEDURE Routine 01/06/2014 5:20 PM EDT CARDIAC CATHETERIZATION Routine 01/07/20 3:58 PM EDT [place] [place] Routine 01/06/2014 12:40 PM EDT POCT GLUCOSE Routine 01/06/2014 12:15 PM EDT CARDIAC EN[place] [place] Routine 01/06/2014 11:30 AM EDT APTT STAT 01/06/2014 11:30 AM EDT LDL CHOLESTEROL, DIRECT Routine 01/07/20 14 11:30 AM EDT ECHOCARDIOGRAM TRANSTHORACIC Routine 01/06/2014 10:29 AM EDT Tachycardia EKG 12-LEAD Routine 01/06/2014 9:29 AM EDT ASCVD (arteriosclerotic cardiovascular disease) POCT GLUCOSE Routine 01/06/2014 8:28 AM EDT XR CHEST PA AND LATERAL STAT 01/07/20 14 6:05 AM EDT SODIUM, URINE, RANDOM Routine 01/06/2014 3:06 AM EDT CREATININE, URINE, RANDOM Routine 01/06/2014 3:06 AM EDT URINALYSIS WITH REFLEX CULTURE Routine 01/06/2014 3:06 AM EDT OXYGEN ADMINISTRATION Routine 01/06/2014 2:58 AM EDT HEMOGRAM Routine 01/06/2014 2:50 AM EDT DIFFERENTIAL, AUTOMATED Routine 01/07/20 14 2:50 AM EDT C[place]IAC [place] [place] Routine 01/06/2014 2:50 AM EDT CBC (WITH DIFF) Routine 01/06/2014 2:50 AM EDT MAGNESIUM Routine 01/06/2014 2:50 AM EDT LIPID PANEL (REFLEX DIRECT LDL) Routine 01/06/2014 2:50 AM EDT BASIC METABOLIC PANEL (NON-FASTING) Routine 01/06/2014 2:50 AM EDT EKG 12-LEAD Routine 01/06/2014 2:01 AM EDT documented in this encounter Results * SCAN DOC: [facility]NER (01/12/2014 11:50 AM EDT) Anatomical Region Laterality Modality Other Narrative 01/12/2014 11:53 AM EDT Procedure Note Provider, Scanning - 01/12/2014 11:50 AM EDT Scanning Provider MEDIA MGR SCAN EXT O RDR/RSLT * (ABNORMAL) POCT Glucose (01/11/2014 11:55 AM EDT) POC Glucose 285(H) 60 - 199 mg/dL [facility] Comment: Supplemental ranges: <140 mg/dL before meals <180 mg/dL all other times of the day Blood specimen (specimen) 01/11/2014 11:55 AM EDT 01/11/2014 11:55 AM EDT Kenia Bauman MD POINT OF CARE TEST O RDERABLES [facility] * XR chest routine PA & lateral (01/11/2014 8:24 AM EDT) Anatomical Region Laterality Modality Chest N/A Radiographic Mahogany ging 01/11/2014 8:24 AM EDT Narrative 01/11/2014 8:34 AM EDT Examination CHEST ROUTINE 2 VIEWS Clinical History New ICD. ??Rule out PTX, assess lead position. ??Please do not lift left arm above shoulder. Comparison 01/06/2014. Technique Findings There is a new left-sided ICD with leads terminating in the right atrium and right ventricle. No pneumothorax or other complication is seen. ??There is a slightly better degree of inflation of the lungs, which are clear. The cardiomediastinal silhouette appears normal. ??No pleural effusion or other significant abnormality is seen. Impression New left-sided ICD with leads in satisfactory position. ?? No pneumothorax or other complication. Procedure Note Iggy Paul MD - 01/11/2014 Examination CHEST ROUTINE 2 VIEWS Clinical History New ICD. Rule out PTX, assess lead position. Please do not lift left arm above shoulder. Comparison 01/06/2014. Technique Findings There is a new left-sided ICD with leads terminating in the right atriumand right ventricle. No pneumothorax or other complication is seen. There joe slightly better degree of inflation of the lungs, which are clear. The cardiomediastinal silhouette appears normal. No pleural effusion or other significant abnormality is seen. Impression New left-sided ICD with leads in satisfactory position. No pneumothorax or other complication. Edy Berry MD IMG DX ORDERABLES * POCT Glucose (01/11/2014 8:03 AM EDT) POC Glucose 147 60 - 199 mg/dL [facility] Comment: Supplemental ranges: <140 mg/dL before meals <180 mg/dL all other times of the day Blood specimen (specimen) 01/11/2014 8:03 AM EDT 01/11/2014 8:03 AM EDT Kenia Bauman MD POINT OF CARE TEST O RDERABLES [facility] * (ABNORMAL) Differential, Automated (01/11/2014 3:56 AM EDT) Neutrophils % 64.0 34.0 - 71.0 % [facility] MILLENNIUM Neutr Abs (ANC) 6.91(H) 1.50 - 6.30 x10(3)/mc L [facility] MILLENNIUM Lymphocytes % 23.9 19.0 - 53.0 % CERN[facility] MILLENNIUM Lymphocytes Abs 2.6 1.0 - 3.6 x10(3)/mc L [facility]ERN[facility] MILLENNIUM Monocytes % 6.5 4.0 - 13.0 % [facility]ERN[facility] MILLENNIUM Monocyte Abs 0.7 0.2 - 1.0 x10(3)/mc L [facility] MILLENNIUM Eosinophils % 5.1 0.0 - 7.0 % [facility]ERN[facility] MILLENNIUM Eosinophils Abs 0.6(H) 0.0 - 0.5 x10(3)/mc L [facility] MILLENNIUM Basophils % 0.3 0.0 - 2.0 % [facility] MILLENNIUM Basophils Abs 0.0 0.0 - 0.2 x10(3)/mc L [facility] MILLENNIUM Immature Gran % 0.20 0.00 - 0.66 % [facility] MILLENNI[facility] Comment: Immature granulocytes(IG's)percentage and absolute count will include metamyelocytes, myelocytes, and promyelocytes. Blood smears from CBCs yielding IG's will be scanned manually for concordance. If this scan disagrees with the automated IG or if promyelocytes are noted, a manual differential will be performed. Elyssa Gran Abs 0.02 0.00 - 0.05 x10(3)/mc L [facility] MILLENNI[facility] Blood specimen (specimen) 01/11/2014 3:56 AM EDT 01/11/2014 4:20 AM EDT Narrative Resulting Agency Comment Spec In Lab Kenia Bauman MD HEMATOLOGY ORDERABLE S [facility]NI[facility] * (ABNORMAL) Hemogram (01/11/2014 3:56 AM EDT) WBC 10.8(H) 4.0 - 10.0 x10(3)/mcL [facility] MILLENNIUM RBC 4.36(L) 4.63 - 6.08 x10(6)/mcL [facility] MILLENNIUM Hemoglobin 12.9(L) 13.7 - 17.5 gm/dL [facility] MILL[facility]NI[facility] Hematocrit 38.7(L) 40.0 - 51.0 % CERNER MILLENNIUM MCV 88.8 79.0 - 92.0 fL CERNER MILLENNIUM MCH 29.6 25.6 - 32.2 pg CERNER MILLENNIUM MCHC 33.3 32.0 - 36.5 gm/dL CERN[facility] MILLENNIUM Platelets 171 145 - 370 x10(3)/mcL CERNER MILLENNIUM RDWSD 45.7 35.0 - 46.0 fL CERNER MILLENNIUM RDWCV 14.2 10.9 - 14.4 % CERNER MILLENNIUM MPV 9.7 9.0 - 12.0 fL [facility] MILLENNIUM Blood specimen (specimen) 01/11/2014 3:56 AM EDT 01/11/2014 4:20 AM EDT Narrative Resulting Agency Comment Spec In Lab Kenia Bauman MD HEMATOLOGY ORDERABLE S Performing Organization Address City/[facility] Co de Phone Number [facility] * Magnesium (01/11/2014 3:56 AM EDT) Magnesium 0.70 0.69 - 1.07 mmol/L [facility] MILLENNIUM Blood specimen (specimen) 01/11/2014 3:56 AM EDT 01/11/2014 4:21 AM EDT Narrative Resulting Agency Comment Spec In Lab Kenia Bauman MD CHEMISTRY ORDERABLES Performing Organization Address [facility] Co de Phone Number MONICA ROSEENNIUM * Basic Metabolic Panel (non-fasting) (01/11/2014 3:56 AM EDT) Glucose Lvl 137 60 - 199 mg/dL [facility] MILLENNIUM Comment:Diabetes: >=200 mg/d L plus symptoms BUN 18 10 - 20 mg/dL [facility] MILLENNIUM Creatinine 0.83 0.80 - 1.50 mg/dL [facility] MILLENNIUM Comment: Please note that the pediatric reference intervals supplied above were [place] [facility] [place] Results from pediatric patients should be interpreted in conjunction to the patient's age, height and muscle mass. Sodium 139 135 - 145 mmol/L [facility]ERN[facility] MILLENNIUM Potassium 4.0 3.5 - 5.0 mmol/L [facility] MILLENNIUM Comment: Please note: ??Patients with WBC >100,000 may have falsely elevated Potassium levels. ??For accurate Potassium quantification in these patients send serum separator tube (gold top) for subsequent determinations. ??Contact the Clinical Chemistry Laboratory if there are any questions. Chloride 103 98 - 107 mmol/L CERNER MILLENNIUM CO2 22 22 - 31 mmol/L [facility] MILLENNIUM Anion Gap 14 5 - 15 mmol/L [facility]ERN[facility] MILLENNIUM Calcium 8.9 8.5 - 10.5 mg/dL [facility]ERN[facility] MILLENNIUM Estimated GFR >60 >=60 CERNER MILLENNIUM Comment: This estimated GFR (eGFR) value [...] the following links into your internet browser. [email or web address] Blood specimen (specimen) 01/11/2014 3:56 AM EDT 01/11/2014 4:21 AM EDT Narrative Resulting Agency Comment Spec In Lab Kenia Bauman MD CHEMISTRY ORDERABLES Performing Organization Address [facility] Phone Number [facility] * POCT Glucose (01/11/2014 3:46 AM EDT) POC Glucose 137 60 - 199 mg/dL MONICA [employer] Comment: Supplemental ranges: <140 mg/dL before meals <180 mg/dL all other times of the day Blood specimen (specimen) 01/11/2014 3:46 AM EDT 01/11/2014 3:46 AM EDT Kenia Bauman MD POINT OF CARE TEST O RDERABLES Performing Organization Address [facility] de Phone Number [facility] * POCT Glucose (01/10/2014 11:57 PM EDT) POC Glucose 173 60 - 199 mg/dL [facility] Comment: Supplemental ranges: <140 mg/dL before meals <180 mg/dL all other times of the day Blood specimen (specimen) 01/10/2014 11:57 PM EDT 01/10/2014 11:57 PM EDT Kenia Bauman MD POINT OF CARE TEST O RDERABLES Performing Organization Address [facility] de Phone Number [facility] [employer] * (ABNORMAL) POCT Glucose (01/10/2014 8:31 PM EDT) POC Glucose 201(H) 60 - 199 mg/dL [facility] Comment: Supplemental ranges: <140 mg/dL before meals <180 mg/dL all other times of the day Blood specimen (specimen) 01/10/2014 8:31 PM EDT 01/10/2014 8:31 PM EDT Kenia Bauman MD POINT OF CARE TEST O RDERABLES Performing Organization Address [facility] de Phone Number [facility] * POCT Glucose (01/10/2014 6:04 PM EDT) POC Glucose 164 60 - 199 mg/dL [facility] Comment: Supplemental ranges: <140 mg/dL before meals <180 mg/dL all other times of the day Blood specimen (specimen) 01/10/2014 6:04 PM EDT 01/10/2014 6:04 PM EDT Kenia Bauman MD POINT OF CARE TEST O RDMARY Performing Organization Address [facility] Phone Number [facility] * Electrophysiology Procedure (01/10/2014 5:19 PM EDT) Anatomical Region Laterality Modality Other Narrative 01/10/2014 6:57 PM EDT DDDR ICD Implantation Indications: Sustained monomorphic VT, CL 350 ms; sinus node disease limiting beta blockade (indication for atrial lead: active patient, need for atrial synchrony) Operators: ??Edy Berry MD ?? Procedure: ??The patient was brought to the Electrophysiology Lab in the fasting state and continuous electrocardiographic monitoring was instituted. ??Conscious sedation was administered with incremental doses of Versed up to 10 mg IV and fentanyl up to 300 mcg IV. Ancef 2 g IV was given shortly before the incision. The left subclavicular fossa was prepped and draped in the usual sterile fashion and a 2:3 mixture of 2% lidocaine and 0.5% bupivicaine was instilled for local anesthesia and postoperative analgesia. ??The incision was made and the dissection was carried down to the level of the pectoralis major fascia where a subcutaneous pocket was formed using blunt and sharp dissection. ??The left axillary vein was entered with an 18 gauge thin walled needle without difficulty, guided by ultrasonography, and guide wires were advanced into the central venous circulation. Using the retained guide wires and two introducer sheaths, the electrodes were advanced to the right ventricle and right atrium under fluoroscopic guidance. Each electrode was anchored to the underlying pectoralis major fascia with a single stitch of 0 silk. The leads were attached to a DDDR ICD pulse generator, which was placed in the previously formed pocket with the electrodes situated beneath it after it had been flushed with Neosporin antibiotic solution. The pulse generator was sutured to the underlying pectoralis major muscle with O-silk. Final Parameters: Ventricular electrode: ?? [employer] [place] Model# 0292 Serial# [id number] ??Bipolar, steroid-tipped, active-fixation, ??single coil DF-4 lead ??Access: ? Left axillary vein ??Location: ?RV apex ??R wave, ICD: ? 9.6 mV ??Pacing threshold, ICD: ? 0.6 V at 0.5 ms ??Impedance, ICD: ? 913 ohms (74 ohms for shock vector) ??Pace the diaphragm at 10 V: ??No Atrial electrode: ?? [employer] Dextrus Model# 4136 Serial# [id number] ??Bipolar, steroid-tipped, active-fixation IS-1 lead ??Access: ? Left axillary vein ??Location ? Right atrial appendage ??P wave, ICD: ? 4.3 mV ??Pacing threshold, pacemaker: ??1.7 V at 0.5 ms ??Impedance, pacemaker: ??538 ohms ??Pace the diaphragm at 10 V: ??No Pulse generator: ? [employer] Incepta Model# E162 Serial# [id number] DDDR ICD ??Location: ?Subcutaneous Defibrillation testing was performed with the RV positive (reversed polarity), at an AGC sensitivity of 1.0 mV. A 1.1 J T wave shock, delivered 310 ms after 8 S1s at 400 ms, induced VF. ??The second shock of 22 J terminated VF after 22 seconds total duration (11 J ineffective, delivered after 15 seconds due to programmed delay). There was minimal if any undersensing. The wound was closed with a running stitch of 2-O Monocryl and the skin was closed with a subcuticular stitch of 4-0 MonocrylPlus. ??Medical adhesive (derma + flex)was applied to the incision, covered by a Mepilex dressing. ??Cinefluoroscopy documented the final implant positions. The patient tolerated the procedure well. Dr. Berry was present for all critical portions. Fluoro time: 8.5 minutes (DAP 2189 cGy/cm2) EBL: 15 cc Procedure Note Edy Berry MD - 01/10/2014 DDDR ICD Implantation Indications: Sustained monomorphic VT, CL 350 ms; sinus node diseaselimiting beta blockade (indication for atrial lead: active patient, needfor atrial synchrony) Operators: Edy Berry MD Procedure: The patient was brought to the Electrophysiology Lab in thefasting state and continuous electrocardiographic monitoring wasinstituted. Conscious sedation was administered with incremental doses ofVersed up to 10 mg IV and fentanyl up to 300 mcg IV. Ancef 2 g IV wasgiven shortly before the incision. The left subclavicular fossa was prepped and draped in the usual sterilefashion and a 2:3 mixture of 2% lidocaine and 0.5% bupivicaine wasinstilled for local anesthesia and postoperative analgesia. The incisionwas made and the dissection was carried down to the level of thepectoralis major fascia where a subcutaneous pocket was formed using bluntand sharp dissection. The left axillary vein was entered with an 18 gaugethin walled needle without difficulty, guided by ultrasonography, andguide wires were advanced into the central venous circulation. Using theretained guide wires and two introducer sheaths, the electrodes wereadvanced to the right ventricle and right atrium under fluoroscopicguidance. Each electrode was anchored to the underlying pectoralis majorfascia with a single stitch of 0 silk. The leads were attached to a DDDR ICD pulse generator, which was placed inthe previously formed pocket with the electrodes situated beneath it afterit had been flushed with Neosporin antibiotic solution. The pulsegenerator was sutured to the underlying pectoralis major muscle withO-silk. Final Parameters: Ventricular electrode: [employer] [place] Model# 0292 Serial# [id number] Bipolar, steroid-tipped, active-fixation, single coil DF-4 lead Access: Left axillary vein Location: RV apex R wave, ICD: 9.6 mV Pacing threshold, ICD: 0.6 V at 0.5 ms Impedance, ICD: 913 ohms (74 ohms for shock vector) Pace the diaphragm at 10 V: No Atrial electrode: [employer] Dextrus Model# 4136 Serial# [id number] Bipolar, steroid-tipped, active-fixation IS-1 lead Access: Left axillary vein Location Right atrial appendage P wave, ICD: 4.3 mV Pacing threshold, pacemaker: 1.7 V at 0.5 ms Impedance, pacemaker: 538 ohms Pace the diaphragm at 10 V: No Pulse generator: [employer] Incepta Model# E162 Serial# [id number] DDDR ICD Location: Subcutaneous Defibrillation testing was performed with the RV positive (reversedpolarity), at an AGC sensitivity of 1.0 mV. A 1.1 J T wave shock,delivered 310 ms after 8 S1s at 400 ms, induced VF. The second shock of22 J terminated VF after 22 seconds total duration (11 J ineffective,delivered after 15 seconds due to programmed delay). There was minimal ifany undersensing. The wound was closed with a running stitch of 2-O Monocryl and the skinwas closed with a subcuticular stitch of 4-0 MonocrylPlus. Medicaladhesive (derma + flex)was applied to the incision, covered by a Mepilexdressing. Cinefluoroscopy documented the final implant positions. The patient tolerated the procedure well. Dr. Berry was present for all critical portions. Fluoro time: 8.5 minutes (DAP 2189 cGy/cm2) EBL: 15 cc Edy Berry MD EP PROCEDURE ORDERAB LES * (ABNORMAL) POCT Glucose (01/10/2014 11:39 AM EDT) [facility] POC Glucose 218(H) 60 - 199 mg/dL [facility] Comment: Supplemental ranges: <140 mg/dL before meals <180 mg/dL all other times of the day Blood specimen (specimen) 01/10/2014 11:39 AM EDT 01/10/2014 11:39 AM EDT Kenia Bauman MD POINT OF CARE TEST O RDERALOREE Performing Organization Address [facility] Co de Phone Number MONICA PERALTA * (ABNORMAL) POCT Glucose (01/10/2014 7:36 AM EDT) POC Glucose 242(H) 60 - 199 mg/dL [facility] Comment: Supplemental ranges: <140 mg/dL before meals <180 mg/dL all other times of the day Blood specimen (specimen) 01/10/2014 7:36 AM EDT 01/10/2014 7:36 AM EDT Kenia Bauman MD POINT OF CARE TEST O RDERALOREE Performing Organization Address [facility] de Phone Number MONICA BENITEZIUM * POCT Glucose (01/10/2014 4:25 AM EDT) POC Glucose 153 60 - 199 mg/dL [facility] Comment: Supplemental ranges: <140 mg/dL before meals <180 mg/dL all other times of the day Blood specimen (specimen) 01/10/2014 4:25 AM EDT 01/10/2014 4:25 AM EDT Kenia Bauman MD POINT OF CARE TEST O [place] Performing Organization Address [facility] de Phone Number MONICA PERALTA * (ABNORMAL) Differential, Automated (01/10/2014 4:21 AM EDT) Neutrophils % 45.9 34.0 - 71.0 % CERNER MILLENNIUM Neutr Abs (ANC) 4.06 1.50 - 6.30 x10(3)/mc L CERNER MILLENNIUM Lymphocytes % 40.1 19.0 - 53.0 % CERNER MILLENNIUM Lymphocytes Abs 3.6 1.0 - 3.6 x10(3)/mc L CERNER MILLENNIUM Monocytes % 6.0 4.0 - 13.0 % CERNER MILLENNIUM Monocyte Abs 0.5 0.2 - 1.0 x10(3)/mc L CERNER MILLENNIUM Eosinophils % 7.6(H) 0.0 - 7.0 % CERNER MILLENNIUM Eosinophils Abs 0.7(H) 0.0 - 0.5 x10(3)/mc L CERNER MILLENNIUM Basophils % 0.3 0.0 - 2.0 % CERNER MILLENNIUM Basophils Abs 0.0 0.0 - 0.2 x10(3)/mc L CERNER MILLENNIUM Immature Gran % 0.10 0.00 - 0.66 % CERNER MILLENNIUM Comment: Immature granulocytes(IG's)percentage and absolute count will include metamyelocytes, myelocytes, and promyelocytes. Blood smears from CBCs yielding IG's will be scanned manually for concordance. If this scan disagrees with the automated IG or if promyelocytes are noted, a manual differential will be performed. Elyssa Gran Abs 0.01 0.00 - 0.05 x10(3)/mc L [facility]ERNER MILLENNIUM Blood specimen (specimen) 01/10/2014 4:21 AM EDT 01/10/2014 4:36 AM EDT Narrative Resulting Agency Comment Spec In Lab Kenia Bauman MD HEMATOLOGY ORDERABLE S [facility]ERNER MILLENNIUM * (ABNORMAL) Hemogram (01/10/2014 4:21 AM EDT) WBC 8.8 4.0 - 10.0 x10(3)/mcL CERNER MILLENNIUM RBC 4.46(L) 4.63 - 6.08 x10(6)/mcL CERNER MILLENNIUM Hemoglobin 13.6(L) 13.7 - 17.5 gm/dL CERNER MILLENNIUM Hematocrit 38.8(L) 40.0 - 51.0 % CERNER MILLENNIUM MCV 87.0 79.0 - 92.0 fL CERNER MILLENNIUM MCH 30.5 25.6 - 32.2 pg CERNER MILLENNIUM MCHC 35.1 32.0 - 36.5 gm/dL CERNER MILLENNIUM Platelets 177 145 - 370 x10(3)/mcL CERNER MILLENNIUM RDWSD 44.5 35.0 - 46.0 fL CERNER MILLENNIUM RDWCV 14.3 10.9 - 14.4 % CERNER MILLENNIUM MPV 9.7 9.0 - 12.0 fL CERNER MILLENNIUM Blood specimen (specimen) 01/10/2014 4:21 AM EDT 01/10/2014 4:36 AM EDT Narrative Resulting Agency Comment Spec In Lab Kenia Bauman MD HEMATOLOGY ORDERABLE S Performing Organization Address [facility]/ZIP Co de Phone Number [facility] MILLENNIUM * (ABNORMAL) Magnesium (01/10/2014 4:21 AM EDT) Magnesium 0.67(L) 0.69 - 1.07 mmol/L CERNER MILLENNIUM Blood specimen (specimen) 01/10/2014 4:21 AM EDT 01/10/2014 4:36 AM EDT Narrative Resulting Agency Comment Spec In Lab Kenia Bauman MD CHEMISTRY ORDERABLES Performing Organization Address [facility] Co de Phone Number [facility] * Basic Metabolic Panel (non-fasting) (01/10/2014 4:21 AM EDT) Glucose Lvl 161 60 - 199 mg/dL [facility] Comment:Diabetes: >=200 mg/d L plus symptoms BUN 17 10 - 20 mg/dL CERNER MILLENNIUM Creatinine 0.91 0.80 - 1.50 mg/dL CERNER MILLENNIUM Comment: Please note that the pediatric reference intervals supplied above were [place] [facility] [place] Results from pediatric patients should be interpreted in conjunction to the patient's age, height and muscle mass. Sodium 139 135 - 145 mmol/L CERNER MILLENNIUM Potassium 4.3 3.5 - 5.0 mmol/L CERNER MILLENNIUM Comment: Please note: ??Patients with WBC >100,000 may have falsely elevated Potassium levels. ??For accurate Potassium quantification in these patients send serum separator tube (gold top) for subsequent determinations. ??Contact the Clinical Chemistry Laboratory if there are any questions. Chloride 102 98 - 107 mmol/L CERNER MILLENNIUM CO2 25 22 - 31 mmol/L CERNER MILLENNIUM Anion Gap 12 5 - 15 mmol/L CERNER MILLENNIUM Calcium 9.7 8.5 - 10.5 mg/dL CERNER MILLENNIUM Estimated GFR >60 >=60 CERNER MILLENNIUM Comment: This estimated GFR (eGFR) value [...] the following links into your internet browser. [email or web address] Blood specimen (specimen) 01/10/2014 4:21 AM EDT 01/10/2014 4:36 AM EDT Narrative Resulting Agency Comment Spec In Lab Kenia Bauman MD CHEMISTRY ORDERABLES Performing Organization Address [facility] Co de Phone Number [facility] * POCT Glucose (01/09/2014 11:25 PM EDT) POC Glucose 164 60 - 199 mg/dL [facility] Comment: Supplemental ranges: <140 mg/dL before meals <180 mg/dL all other times of the day Blood specimen (specimen) 01/09/2014 11:25 PM EDT 01/09/2014 11:25 PM EDT Kenia Bauman MD POINT OF CARE TEST O RDERABLES Performing Organization Address [facility] Co de Phone Number [facility] * (ABNORMAL) POCT Glucose (01/09/2014 8:03 PM EDT) POC Glucose 204(H) 60 - 199 mg/dL [facility] Comment: Supplemental ranges: <140 mg/dL before meals <180 mg/dL all other times of the day Blood specimen (specimen) 01/09/2014 8:03 PM EDT 01/09/2014 8:03 PM EDT Kenia Bauman MD POINT OF CARE TEST O RDERALOREE Performing Organization Address [facility] de Phone Number [facility] * (ABNORMAL) POCT Glucose (01/09/2014 4:34 PM EDT) POC Glucose 231(H) 60 - 199 mg/dL [facility] Comment: Supplemental ranges: <140 mg/dL before meals <180 mg/dL all other times of the day Blood specimen (specimen) 01/09/2014 4:34 PM EDT 01/09/2014 4:34 PM EDT Kenia Bauman MD POINT OF CARE TEST O CARLOSERALOREE Performing Organization Address [facility] de Phone Number [facility] * (ABNORMAL) POCT Glucose (01/09/2014 11:44 AM EDT) POC Glucose 280(H) 60 - 199 mg/dL [facility] Comment: Supplemental ranges: <140 mg/dL before meals <180 mg/dL all other times of the day Blood specimen (specimen) 01/09/2014 11:44 AM EDT 01/09/2014 11:44 AM EDT Kenia Bauman MD POINT OF CARE TEST O CARLOSERALOREE Performing Organization Address [facility] de Phone Number [facility] * POCT Glucose (01/09/2014 7:51 AM EDT) POC Glucose 148 60 - 199 mg/dL [facility] Comment: Supplemental ranges: <140 mg/dL before meals <180 mg/dL all other times of the day Blood specimen (specimen) 01/09/2014 7:51 AM EDT 01/09/2014 7:51 AM EDT Kenia Bauman MD POINT OF CARE TEST O RDERABLES Performing Organization Address City/State/[facility] Co de Phone Number CERDELMAR BENITEZIUM * Basic Metabolic Panel (non-fasting) (01/09/2014 4:32 AM EDT) Glucose Lvl 124 60 - 199 mg/dL CERNER MILLENNIUM Comment:Diabetes: >=200 mg/d L plus symptoms BUN 15 10 - 20 mg/dL CERNER MILLENNIUM Creatinine 0.87 0.80 - 1.50 mg/dL CERNER MILLENNIUM Comment: Please note that the pediatric reference intervals supplied above were [place] [facility] [place] Results from pediatric patients should be interpreted in conjunction to the patient's age, height and muscle mass. Sodium 141 135 - 145 mmol/L CERNER MILLENNIUM Potassium 4.2 3.5 - 5.0 mmol/L CERNER MILLENNIUM Comment: Please note: ??Patients with WBC >100,000 may have falsely elevated Potassium levels. ??For accurate Potassium quantification in these patients send serum separator tube (gold top) for subsequent determinations. ??Contact the Clinical Chemistry Laboratory if there are any questions. Chloride 102 98 - 107 mmol/L CERNER MILLENNIUM CO2 24 22 - 31 mmol/L CERNER MILLENNIUM Anion Gap 15 5 - 15 mmol/L CERNER MILLENNIUM Calcium 10.0 8.5 - 10.5 mg/dL CERNER MILLENNIUM Estimated GFR >60 >=60 CERNER MILLENNIUM Comment: This estimated GFR (eGFR) value [...] the following links into your internet browser. [email or web address] Blood specimen (specimen) 01/09/2014 4:32 AM EDT 01/09/2014 4:38 AM EDT Narrative Resulting Agency Comment Spec In Lab Kenia Bauman MD CHEMISTRY ORDERABLES [facility] RO[facility] * (ABNORMAL) Differential, Automated (01/09/2014 4:32 AM EDT) Neutrophils % 44.1 34.0 - 71.0 % CERNER MILLENNIUM Neutr Abs (ANC) 3.51 1.50 - 6.30 x10(3)/mc L CERNER MILLENNIUM Lymphocytes % 42.1 19.0 - 53.0 % CERNER MILLENNIUM Lymphocytes Abs 3.4 1.0 - 3.6 x10(3)/mc L CERNER MILLENNIUM Monocytes % 6.2 4.0 - 13.0 % CERNER MILLENNIUM Monocyte Abs 0.5 0.2 - 1.0 x10(3)/mc L CERNER MILLENNIUM Eosinophils % 6.9 0.0 - 7.0 % CERNER MILLENNIUM Eosinophils Abs 0.6(H) 0.0 - 0.5 x10(3)/mc L CERNER MILLENNIUM Basophils % 0.6 0.0 - 2.0 % CERNER MILLENNIUM Basophils Abs 0.0 0.0 - 0.2 x10(3)/mc L CERNER MILLENNIUM Immature Gran % 0.10 0.00 - 0.66 % CERNER MILLENNIUM Comment: Immature granulocytes(IG's)percentage and absolute count will include metamyelocytes, myelocytes, and promyelocytes. Blood smears from CBCs yielding IG's will be scanned manually for concordance. If this scan disagrees with the automated IG or if promyelocytes are noted, a manual differential will be performed. Elyssa Gran Abs 0.01 0.00 - 0.05 x10(3)/mc L CERNER MILLENNIUM Blood specimen (specimen) 01/09/2014 4:32 AM EDT 01/09/2014 4:38 AM EDT Narrative Resulting Agency Comment Spec In Lab Kenia Bauman MD HEMATOLOGY ORDERABLE S [facility] BENITEZIUM * (ABNORMAL) Hemogram (01/09/2014 4:32 AM EDT) WBC 8.0 4.0 - 10.0 x10(3)/mcL [facility] MILLENNIUM RBC 4.83 4.63 - 6.08 x10(6)/mcL [facility]ILL[facility] Hemoglobin 14.5 13.7 - 17.5 gm/dL [facility] MILLENNIUM Comment:Repeated & verified Hematocrit 43.0 40.0 - 51.0 % [facility]TON[facility] MCV 89.0 79.0 - 92.0 fL [facility] MCH 30.0 25.6 - 32.2 pg [facility] MCHC 33.7 32.0 - 36.5 gm/dL [facility] Platelets 184 145 - 370 x10(3)/mcL [facility] MILLENNIUM RDWSD 47.4(H) 35.0 - 46.0 fL [facility] RDWCV 14.8(H) 10.9 - 14.4 % [facility] MPV 10.3 9.0 - 12.0 fL [facility] Blood specimen (specimen) 01/09/2014 4:32 AM EDT 01/09/2014 4:38 AM EDT Narrative Resulting Agency Comment Spec In Lab Kenia Bauman MD HEMATOLOGY ORDERABLE S Performing Organization Address City/[facility] Co de Phone Number [facility] * Magnesium (01/09/2014 4:32 AM EDT) Pathologist [facility] Magnesium 0.76 0.69 - 1.07 mmol/L [facility] Blood specimen (specimen) 01/09/2014 4:32 AM EDT 01/09/2014 4:38 AM EDT Narrative Resulting Agency Comment Spec In Lab Kenia Bauman MD CHEMISTRY ORDERABLES Performing Organization Address [facility] Co de Phone Number [facility] * POCT Glucose (01/09/2014 4:19 AM EDT) POC Glucose 114 60 - 199 mg/dL [facility] Comment: Supplemental ranges: <140 mg/dL before meals <180 mg/dL all other times of the day Blood specimen (specimen) 01/09/2014 4:19 AM EDT 01/09/2014 4:19 AM EDT Kenia Bauman MD POINT OF CARE TEST O RDERABLES Performing Organization Address [facility] de Phone Number [facility] * POCT Glucose (01/09/2014 1:41 AM EDT) POC Glucose 155 60 - 199 mg/dL [facility] Comment: Supplemental ranges: <140 mg/dL before meals <180 mg/dL all other times of the day Blood specimen (specimen) 01/09/2014 1:41 AM EDT 01/09/2014 1:41 AM EDT Kenia Bauman MD POINT OF CARE TEST O RDERABLES Performing Organization Address [facility] de Phone Number [facility] * (ABNORMAL) POCT Glucose (01/08/2014 11:19 PM EDT) POC Glucose 252(H) 60 - 199 mg/dL [facility] Comment: Supplemental ranges: <140 mg/dL before meals <180 mg/dL all other times of the day Blood specimen (specimen) 01/08/2014 11:19 PM EDT 01/08/2014 11:19 PM EDT Kenia Bauman MD POINT OF CARE TEST O RDERALOREE Performing Organization Address [facility] de Phone Number [facility] * (ABNORMAL) POCT Glucose (01/08/2014 7:50 PM EDT) POC Glucose 205(H) 60 - 199 mg/dL [facility] Comment: Supplemental ranges: <140 mg/dL before meals <180 mg/dL all other times of the day Blood specimen (specimen) 01/08/2014 7:50 PM EDT 01/08/2014 7:50 PM EDT Kenia Bauman MD POINT OF CARE TEST O RDERABLES Performing Organization Address [facility] de Phone Number MONICA PERALTA * POCT Glucose (01/08/2014 5:17 PM EDT) POC Glucose 194 60 - 199 mg/dL [facility] Comment: Supplemental ranges: <140 mg/dL before meals <180 mg/dL all other times of the day Blood specimen (specimen) 01/08/2014 5:17 PM EDT 01/08/2014 5:17 PM EDT Kenia Bauman MD POINT OF CARE TEST O RDERALOREE Performing Organization Address [facility] de Phone Number [facility] * (ABNORMAL) POCT Glucose (01/08/2014 2:21 PM EDT) POC Glucose 230(H) 60 - 199 mg/dL [facility] Comment: Supplemental ranges: <140 mg/dL before meals <180 mg/dL all other times of the day Blood specimen (specimen) 01/08/2014 2:21 PM EDT 01/08/2014 2:21 PM EDT Kenia Bauman MD POINT OF CARE TEST O RDERALOREE Performing Organization Address [facility] de Phone Number [facility] * (ABNORMAL) POCT Glucose (01/08/2014 12:04 PM EDT) POC Glucose 240(H) 60 - 199 mg/dL [facility] Comment: Supplemental ranges: <140 mg/dL before meals <180 mg/dL all other times of the day Blood specimen (specimen) 01/08/2014 12:04 PM EDT 01/08/2014 12:04 PM EDT Kenia Bauman MD POINT OF CARE TEST O RDERABLES Performing Organization Address [facility] Co de Phone Number [facility] PERALTA * POCT Glucose (01/08/2014 7:56 AM EDT) POC Glucose 125 60 - 199 mg/dL CERNER MILLENNIUM Comment: Supplemental ranges: <140 mg/dL before meals <180 mg/dL all other times of the day Blood specimen (specimen) 01/08/2014 7:56 AM EDT 01/08/2014 7:56 AM EDT Kenia Bauman MD POINT OF CARE TEST O RDERABLES CERDELMAR ROSEENNIUM * (ABNORMAL) Magnesium (01/08/2014 7:03 AM EDT) Magnesium 0.58(L) 0.69 - 1.07 mmol/L CERNER MILLENNIUM Blood specimen (specimen) 01/08/2014 7:03 AM EDT 01/08/2014 7:09 AM EDT Narrative Resulting Agency Comment Spec In Lab Kenia Bauman MD CHEMISTRY ORDERABLES Performing Organization Address City/[facility] Co de Phone Number CERDELMAR ROSEENNIUM * Differential, Automated (01/08/2014 7:03 AM EDT) Neutrophils % 46.8 34.0 - 71.0 % CERNER MILLENNIUM Neutr Abs (ANC) 3.53 1.50 - 6.30 x10(3)/mcL CERNER MILLENNIUM Lymphocytes % 41.5 19.0 - 53.0 % CERNER MILLENNIUM Lymphocytes Abs 3.1 1.0 - 3.6 x10(3)/mcL CERNER MILLENNIUM Monocytes % 5.8 4.0 - 13.0 % CERNER MILLENNIUM Monocyte Abs 0.4 0.2 - 1.0 x10(3)/mcL CERNER MILLENNIUM Eosinophils % 5.2 0.0 - 7.0 % CERNER MILLENNIUM Eosinophils Abs 0.4 0.0 - 0.5 x10(3)/mcL CERNER MILLENNIUM Basophils % 0.4 0.0 - 2.0 % CERNER MILLENNIUM Basophils Abs 0.0 0.0 - 0.2 x10(3)/mcL CERNER MILLENNIUM Immature Gran % 0.30 0.00 - 0.66 % CERNER MILLENNIUM Comment: Immature granulocytes(IG's)percentage and absolute count will include metamyelocytes, myelocytes, and promyelocytes. Blood smears from CBCs yielding IG's will be scanned manually for concordance. If this scan disagrees with the automated IG or if promyelocytes are noted, a manual differential will be performed. Elyssa Gran Abs 0.02 0.00 - 0.05 x10(3)/mcL CERNER MILLENNIUM Blood specimen (specimen) 01/08/2014 7:03 AM EDT 01/08/2014 7:08 AM EDT Narrative Resulting Agency Comment Spec In Lab Kenia Bauman MD HEMATOLOGY ORDERABLE S Performing Organization Address City/[facility] Co de Phone Number CERDELMAR ROSEENNIUM * (ABNORMAL) Hemogram (01/08/2014 7:03 AM EDT) WBC 7.5 4.0 - 10.0 x10(3)/mcL CERNER MILLENNIUM RBC 4.00(L) 4.63 - 6.08 x10(6)/mcL CERNER MILLENNIUM Hemoglobin 11.8(L) 13.7 - 17.5 gm/dL CERNER MILLENNIUM Hematocrit 35.5(L) 40.0 - 51.0 % CERNER MILLENNIUM MCV 88.8 79.0 - 92.0 fL CERNER MILLENNIUM MCH 29.5 25.6 - 32.2 pg CERNER MILLENNIUM MCHC 33.2 32.0 - 36.5 gm/dL CERNER MILLENNIUM Platelets 143(L) 145 - 370 x10(3)/mcL CERNER MILLENNIUM RDWSD 47.5(H) 35.0 - 46.0 fL CERNER MILLENNIUM RDWCV 14.6(H) 10.9 - 14.4 % CERNER MILLENNIUM MPV 9.5 9.0 - 12.0 fL CERNER MILLENNIUM Blood specimen (specimen) 01/08/2014 7:03 AM EDT 01/08/2014 7:08 AM EDT Narrative Resulting Agency Comment Spec In Lab Kenia Bauman MD HEMATOLOGY ORDERABLE S [facility] * (ABNORMAL) Basic Metabolic Panel (non-fasting) (01/08/2014 7:03 AM EDT) Glucose Lvl 133 60 - 199 mg/dL CERNER MILLENNIUM Comment:Diabetes: >=200 mg/d L plus symptoms BUN 16 10 - 20 mg/dL CERNER MILLENNIUM Creatinine 0.74(L) 0.80 - 1.50 mg/dL CERNER MILLENNIUM Comment: Please note that the pediatric reference intervals supplied above were [place] [facility] [place] Results from pediatric patients should be interpreted in conjunction to the patient's age, height and muscle mass. Sodium 140 135 - 145 mmol/L CERNER MILLENNIUM Potassium 3.9 3.5 - 5.0 mmol/L CERNER MILLENNIUM Comment: Please note: ??Patients with WBC >100,000 may have falsely elevated Potassium levels. ??For accurate Potassium quantification in these patients send serum separator tube (gold top) for subsequent determinations. ??Contact the Clinical Chemistry Laboratory if there are any questions. Chloride 103 98 - 107 mmol/L CERNER MILLENNIUM CO2 24 22 - 31 mmol/L CERNER MILLENNIUM Anion Gap 13 5 - 15 mmol/L CERNER MILLENNIUM Calcium 9.1 8.5 - 10.5 mg/dL CERNER MILLENNIUM Estimated GFR >60 >=60 CERNER MILLENNIUM Comment: This estimated GFR (eGFR) value [...] the following links into your internet browser. [email or web address] [email or web address] Blood specimen (specimen) 01/08/2014 7:03 AM EDT 01/08/2014 7:08 AM EDT Narrative Resulting Agency Comment Spec In Lab Kenia Bauman MD CHEMISTRY ORDERABLES Performing Organization Address City/State/[facility] Co de Phone Number [facility] * (ABNORMAL) POCT Glucose (01/08/2014 3:55 AM EDT) POC Glucose 219(H) 60 - 199 mg/dL [facility] Comment: Supplemental ranges: <140 mg/dL before meals <180 mg/dL all other times of the day Blood specimen (specimen) 01/08/2014 3:55 AM EDT 01/08/2014 3:55 AM EDT Kenia Bauman MD POINT OF CARE TEST O RDERABLES Performing Organization Address [facility] de Phone Number [facility] * POCT Glucose (01/07/2014 11:51 PM EDT) POC Glucose 153 60 - 199 mg/dL [facility] Comment: Supplemental ranges: <140 mg/dL before meals <180 mg/dL all other times of the day Blood specimen (specimen) 01/07/2014 11:51 PM EDT 01/07/2014 11:51 PM EDT Kenia Bauman MD POINT OF CARE TEST O RDERABLES Performing Organization Address [facility] de Phone Number [facility] * POCT Glucose (01/07/2014 9:32 PM EDT) POC Glucose 190 60 - 199 mg/dL [facility] Comment: Supplemental ranges: <140 mg/dL before meals <180 mg/dL all other times of the day Blood specimen (specimen) 01/07/2014 9:32 PM EDT 01/07/2014 9:32 PM EDT Kenia Bauman MD POINT OF CARE TEST O RDERABLES Performing Organization Address [facility] Co de Phone Number [facility] * (ABNORMAL) POCT Glucose (01/07/2014 7:36 PM EDT) POC Glucose 223(H) 60 - 199 mg/dL [facility] Comment: Supplemental ranges: <140 mg/dL before meals <180 mg/dL all other times of the day Blood specimen (specimen) 01/07/2014 7:36 PM EDT 01/07/2014 7:36 PM EDT Kenia Bauman MD POINT OF CARE TEST O RDERABLES Performing Organization Address [facility] de Phone Number [facility] * POCT Glucose (01/07/2014 5:32 PM EDT) POC Glucose 180 60 - 199 mg/dL [facility] Comment: Supplemental ranges: <140 mg/dL before meals <180 mg/dL all other times of the day Blood specimen (specimen) 01/07/2014 5:32 PM EDT 01/07/2014 5:32 PM EDT Kenia Bauman MD POINT OF CARE TEST O RDERABLES Performing Organization Address [facility] de Phone Number [facility] * (ABNORMAL) POCT Glucose (01/07/2014 1:24 PM EDT) POC Glucose 240(H) 60 - 199 mg/dL [facility] Comment: Supplemental ranges: <140 mg/dL before meals <180 mg/dL all other times of the day Blood specimen (specimen) 01/07/2014 1:24 PM EDT 01/07/2014 1:24 PM EDT Kenia Bauman MD POINT OF CARE TEST O RDERABLES Performing Organization Address [facility] de Phone Number MONICA PERALTA * (ABNORMAL) Magnesium (01/07/2014 10:00 AM EDT) Magnesium 0.66(L) 0.69 - 1.07 mmol/L [facility] Blood specimen (specimen) 01/07/2014 10:00 AM EDT 01/07/2014 10:17 AM EDT Narrative Resulting Agency Comment Spec In Lab Kenia Bauman MD CHEMISTRY ORDERABLES Performing Organization Address [facility] de Phone Number MONICA PERALTA * Potassium (01/07/2014 10:00 AM EDT) Pathologist [facility] Potassium 4.3 3.5 - 5.0 mmol/L MONICA BENITEZIUM Comment: Please note: ??Patients with WBC >100,000 may have falsely elevated Potassium levels. ??For accurate Potassium quantification in these patients send serum separator tube (gold top) for subsequent determinations. ??Contact the Clinical Chemistry Laboratory if there are any questions. Blood specimen (specimen) 01/07/2014 10:00 AM EDT 01/07/2014 10:17 AM EDT Narrative Resulting Agency Comment Spec In Lab Kenia Bauman MD CHEMISTRY ORDERABLES Performing Organization Address [facility] de Phone Number MONICA BENITEZIUM * POCT Glucose (01/07/2014 9:23 AM EDT) [facility] POC Glucose 178 60 - 199 mg/dL [facility] BENITEZIUM Comment: Supplemental ranges: <140 mg/dL before meals <180 mg/dL all other times of the day Blood specimen (specimen) 01/07/2014 9:23 AM EDT 01/07/2014 9:23 AM EDT Kenia Bauman MD POINT OF CARE TEST O RDERABLES Performing Organization Address [facility] de Phone Number MONICA BENITEZIUM * Differential, Automated (01/07/2014 3:40 AM EDT) Neutrophils % 60.4 34.0 - 71.0 % CERNER MILLENNIUM Neutr Abs (ANC) 5.37 1.50 - 6.30 x10(3)/mcL CERNER MILLENNIUM Lymphocytes % 29.1 19.0 - 53.0 % CERNER MILLENNIUM Lymphocytes Abs 2.6 1.0 - 3.6 x10(3)/mcL CERNER MILLENNIUM Monocytes % 5.9 4.0 - 13.0 % CERNER MILLENNIUM Monocyte Abs 0.5 0.2 - 1.0 x10(3)/mcL CERNER MILLENNIUM Eosinophils % 3.9 0.0 - 7.0 % CERNER MILLENNIUM Eosinophils Abs 0.4 0.0 - 0.5 x10(3)/mcL CERNER MILLENNIUM Basophils % 0.5 0.0 - 2.0 % CERNER MILLENNIUM Basophils Abs 0.0 0.0 - 0.2 x10(3)/mcL CERNER MILLENNIUM Immature Gran % 0.20 0.00 - 0.66 % CERNER MILLENNIUM Comment: Immature granulocytes(IG's)percentage and absolute count will include metamyelocytes, myelocytes, and promyelocytes. Blood smears from CBCs yielding IG's will be scanned manually for concordance. If this scan disagrees with the automated IG or if promyelocytes are noted, a manual differential will be performed. Elyssa Gran Abs 0.02 0.00 - 0.05 x10(3)/mcL CERNER MILLENNIUM Blood specimen (specimen) 01/07/2014 3:40 AM EDT 01/07/2014 3:43 AM EDT Narrative Resulting Agency Comment Spec In Lab Kenia Bauman MD HEMATOLOGY ORDERABLE S [facility]ERDELM[facility] ROSEENNI[facility] * (ABNORMAL) Hemogram (01/07/2014 3:40 AM EDT) WBC 8.9 4.0 - 10.0 x10(3)/mcL CERNER MILLENNIUM RBC 3.85(L) 4.63 - 6.08 x10(6)/mcL CERNER MILLENNIUM Hemoglobin 11.4(L) 13.7 - 17.5 gm/dL CERNER MILLENNIUM Hematocrit 34.5(L) 40.0 - 51.0 % CERNER MILLENNIUM MCV 89.6 79.0 - 92.0 fL CERNER MILLENNIUM MCH 29.6 25.6 - 32.2 pg CERNER MILLENNIUM MCHC 33.0 32.0 - 36.5 gm/dL CERNER MILLENNIUM Platelets 137(L) 145 - 370 x10(3)/mcL CERNER MILLENNIUM RDWSD 48.7(H) 35.0 - 46.0 fL CERNER MILLENNIUM RDWCV 15.0(H) 10.9 - 14.4 % CERNER MILLENNIUM MPV 9.7 9.0 - 12.0 fL [facility] MILLENNIUM Blood specimen (specimen) 01/07/2014 3:40 AM EDT 01/07/2014 3:43 AM EDT Narrative Resulting Agency Comment Spec In Lab Kenia Bauman MD HEMATOLOGY ORDERABLE S Performing Organization Address [facility] Co de Phone Number CERNER MILLENNIUM * (ABNORMAL) Magnesium (01/07/2014 3:40 AM EDT) Magnesium 0.61(L) 0.69 - 1.07 mmol/L CERN[facility] MILLENNIUM Blood specimen (specimen) 01/07/2014 3:40 AM EDT 01/07/2014 3:43 AM EDT Narrative Resulting Agency Comment Spec In Lab Kenia Bamuan MD CHEMISTRY ORDERABLES Performing Organization Address [facility] de Phone Number CERNER MILLENNIUM * (ABNORMAL) Basic Metabolic Panel (non-fasting) (01/07/2014 3:40 AM EDT) Glucose Lvl 93 60 - 199 mg/dL [facility]ERN[facility] MILLENNIUM Comment:Diabetes: >=200 mg/d L plus symptoms BUN 20 10 - 20 mg/dL [facility]ERN[facility] MILLENNIUM Creatinine 0.81 0.80 - 1.50 mg/dL CERN[facility] MILLENNIUM Comment: Please note that the pediatric reference intervals supplied above were [place] [facility] [place] Results from pediatric patients should be interpreted in conjunction to the patient's age, height and muscle mass. Sodium 140 135 - 145 mmol/L CERNER MILLENNIUM Potassium 3.4(L) 3.5 - 5.0 mmol/L [facility]ERN[facility] MILLENNIUM Comment: Please note: ??Patients with WBC >100,000 may have falsely elevated Potassium levels. ??For accurate Potassium quantification in these patients send serum separator tube (gold top) for subsequent determinations. ??Contact the Clinical Chemistry Laboratory if there are any questions. Chloride 103 98 - 107 mmol/L CERNER MILLENNIUM CO2 26 22 - 31 mmol/L CERNER MILLENNIUM Anion Gap 11 5 - 15 mmol/L CERNER MILLENNIUM Calcium 8.8 8.5 - 10.5 mg/dL CERNER MILLENNIUM Estimated GFR >60 >=60 CERNER MILLENNIUM Comment: This estimated GFR (eGFR) value [...] the following links into your internet browser. [email or web address] Blood specimen (specimen) 01/07/2014 3:40 AM EDT 01/07/2014 3:43 AM EDT Narrative Resulting Agency Comment Spec In Lab Kenia Bauman MD CHEMISTRY ORDERABLES Performing Organization Address [facility] Co de Phone Number [facility] * POCT Glucose (01/07/2014 3:39 AM EDT) POC Glucose 95 60 - 199 mg/dL [facility] Comment: Supplemental ranges: <140 mg/dL before meals <180 mg/dL all other times of the day Blood specimen (specimen) 01/07/2014 3:39 AM EDT 01/07/2014 3:39 AM EDT Kenia Bauman MD POINT OF CARE TEST O RDERABLES Performing Organization Address [facility] Co de Phone Number [facility] * POCT Glucose (01/06/2014 11:40 PM EDT) POC Glucose 130 60 - 199 mg/dL [facility] Comment: Supplemental ranges: <140 mg/dL before meals <180 mg/dL all other times of the day Blood specimen (specimen) 01/06/2014 11:40 PM EDT 01/06/2014 11:40 PM EDT Kenia Bauman MD POINT OF CARE TEST O RDERALOREE Performing Organization Address [facility] de Phone Number [facility] * POCT Glucose (01/06/2014 9:23 PM EDT) POC Glucose 173 60 - 199 mg/dL [facility] Comment: Supplemental ranges: <140 mg/dL before meals <180 mg/dL all other times of the day Blood specimen (specimen) 01/06/2014 9:23 PM EDT 01/06/2014 9:23 PM EDT Kenia Bauman MD POINT OF CARE TEST O SAMPSON Performing Organization Address [facility] de Phone Number [facility] * POCT Glucose (01/06/2014 6:42 PM EDT) POC Glucose 125 60 - 199 mg/dL [facility] Comment: Supplemental ranges: <140 mg/dL before meals <180 mg/dL all other times of the day Blood specimen (specimen) 01/06/2014 6:42 PM EDT 01/06/2014 6:42 PM EDT Kenia Bauman MD POINT OF CARE TEST O SAM[place]ON Performing Organization Address [facility] Phone Number [facility] * Electrophysiology Procedure (01/06/2014 5:20 PM EDT) Anatomical Region Laterality Modality Other Narrative 01/10/2014 8:45 AM EDT Cardiac Electrophysiology Please refer to the operative note filed under the inpatient tab almost immediately after completion this procedure. Procedure Note José Manuel Cole MD - 01/10/2014 Cardiac Electrophysiology Please refer to the operative note filed under the inpatient tab almostimmediately after completion this procedure. Ta Negron MD EP PROCEDURE ORDERAB LES * Cardiac Catheterization (01/06/2014 3:58 PM EDT) Anatomical Region Laterality Modality Other Narrative 01/09/2014 7:14 AM EDT ?[facility] ? Cardiac Catheterization/Intervention Report ? Patient Name: Pamela, Shahnaz ? Procedure Date: 01/06/2014 ? A #: [id number] ? Primary Physician: Jaron Jarquin ? Case #: [id number] ? File Name: [id number] ? Catheterization Order Number: [id number] ? [facility] ? Final Report [place], [place] ? Patient Name: ? Shahnaz Santiago ? ID#: ?[id number] ? : ?1950 ? Procedure Date: ? January 06, 2014 ? Case #: ? 14- [id number] ? Room: ? 1 ? Case Physician: ? Jaron Jarquin M.D. ? Start: ?14:40 ?Fellow: ? Jennifer Nguyen Chiaco, ?Admission: ??01/06/2014 ?M.D. ? Referring Physician: ??Jennifer Haro M.D. ? Procedures: ?* Coronary Angiography ?* Left Heart Catheterization ?* Coronary Flow [place] Measurement ?* Coronary Instantaneous Wave-Free Ratio ?* Vascular Closure Device Deployment ?* Access Site Angiography ? History ?Shahnaz Santiago is a 63 year old man. He has hypertension. The patient has ?a history of smoking and is still smoking. He has hypercholesterolemia. ?The patient has diabetes managed with oral medication. He has atypical ?symptoms for coronary artery disease, unstable angina, positive troponin ?and a prior history of coronary artery disease. The patient has an angina ?classification of II. He is status post an acute non-ST elevation ?myocardial infarction. The patient had a remote coronary intervention ?procedure. He has a history of dyspnea with NYHA functional class III. 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 He also has a history of an ?abnormal EKG. Prior to the initiation of this procedure, the patient was ?designated as ASA Class IV. ? Patient Status at Catheterization: ?The patient presented with: non-STEMI. This patient was on beta blockers ?prior to the procedure. No stress or imaging studies were performed prior ?to this procedure ? Technique: ?A 6Fr sheath was inserted in the right femoral artery utilizing the ?Seldinger technique. The left coronary artery was injected utilizing a ?6Fr JL 5 catheter. A 6Fr JR 4 catheter was used to inject the right ?coronary artery. Left ventricle was performed with a 6Fr Angled pigtail ?catheter. Bivaluridin bolus 69mg and infusion 161mg/hr was administered. ?A total of 150cc of Omnipaque were opened, 65cc of Omnipaque were ?administered and 85cc of Omnipaque were wasted. Radiation: Fluoro time ?was 10.0 minutes, dose area product was 141,466 mGYcm2 and air kerma was ?1,798 mGY. ?The patient received the following medications prior to and during the ?procedure: Aspirin (any), Clopidogrel and Bivalirudin. ? Hemodynamics: ?Left Heart Pressures ? Resting: ? Syst Diast ? EDP ?a ?v ? m ?Ao 115 ?? 55 ?77 ?LV 109 ? 20 ? Post Contrast: ? Syst Diast ? EDP ?a ?v ? m ?LV 99 ?19 ?Comments: ??LVp 101/3,18 ? AOp 113/51 (77). ? Coronary Angiography: ?Dominance: Right ?Left Main ? The left main was normal. ?Left Anterior Descending ? There was mild diffuse disease of the entire vessel segment of the ? left anterior descending artery (LAD). ??The mid segment of the LAD ? had a hazy single discrete 50% stenosis. ??This lesion represented ? in-stent restenosis following a prior coronary stent insertion. ?Left Circumflex ? There was mild diffuse disease of the entire vessel segment of the ? left circumflex artery (LCX). ?Right Coronary Artery ? There was moderate diffuse disease of the proximal segment of the ? right coronary artery (RCA). ??The RCA was small. ??The distal segment ? of the RCA had a single discrete total occlusion. ??Distal flow was ? via bridging collaterals. ??The distal vessel was small. ? Intravascular Imaging/Physiology: ?Fractional flow reserve was performed to assess the 50% stenosis in the ?mid LAD using a 6 Fr EBU 4.0 guiding catheter and a Verrata wire. ?Adenosine 140 mcg/kg/min intravenous infusion was administered. ??Wire ?delivery was successful. ??The FFR across the 50% mid LAD lesion was 0.85. ? This lesion was not hemodynamically signficant. ??Lesions are considered ?to be hemodynamically significant if the FFR is less than 0.80. ?Instantaneous wave-free ratio (iFR) was determined across the 50% ?stenosis in the mid LAD using a 6 Fr EBU 4.0 guiding catheter and a ?Verrata wire. ??Wire delivery was successful. ??The IFR across the 50% mid ?LAD lesion was 0.89. ??This lesion was not hemodynamically signficant. ?Lesions are generally considered to be hemodynamically significant if the ?iFR is less than 0.88, and are considered to be indeterminate in the ?range from 0.88 to 0.97. ?Additional Findings: 0.93 on repeat. ? Vascular Access Angiogram: ?A selective angiogram at the right femoral artery revealed no significant ?obstructive disease. ? Vascular Closure Device: ?A 6 Fr Perclose was deployed at the right femoral artery access site. ?This device was successful. ? Conclusions: ?* Two vessel coronary artery disease (LAD and RCA) ?* Elevated left ventricular end diastolic pressure ?* LAD restenosis not hemodynamically significant by FFR. ? Complications/Events: ?The patient had no complications during these procedures. ?The attending physician was present for the entire procedure. ?Dr. Jaron Jarquin M.D. performed the coronary angiography, left heart ?catheterization, access site angiography, FFR # coronary, IFR-coronary and ?vascular closure device. ? Jaron Jarquin, M.D. ? Electronically Signed by: Jaron Jarquin, M.D. ? Report Finalized: 01/06/2014 ??16:11 ? Procedure Note Jaron Jarquin II, MD - 01/09/2014 [facility] Cardiac Catheterization/Intervention Report Patient Name: Shahnaz Santiago Procedure Date: 01/06/2014 A #: [id number] Primary Physician: Jaron Jarquin Case #: File Name: [id number] Catheterization Order Number: [id number] [facility] FinalReport [place], [place] Patient Name: Shahnaz Santiago ID#:[id number] :1950 Procedure Date: January 06, 2014 Case #: Room: 1 Case Physician: Jaron Jarquin M.D. Start: 14:40 Fellow: Jennifer Argueta, Admission:01/06/2014 Adriana Referring Physician: Jennifer Haro M.D. Procedures: * Coronary Angiography * Left Heart Catheterization * Coronary Flow [place] Measurement * Coronary Instantaneous Wave-Free Ratio * Vascular Closure Device Deployment * Access Site Angiography History Shahnaz Santiago is a 63 year old man. He has hypertension. Thepatient has a history of smoking and is still smoking. He hashypercholesterolemia. The patient has diabetes managed with oral medication. He hasatypical symptoms for coronary artery disease, unstable angina, positivetroponin and a prior history of coronary artery disease. The patient has anangina classification of II. He is status post an acute non-ST elevation myocardial infarction. The patient had a remote coronaryintervention procedure. He has a history of dyspnea with NYHA functional classIII. The patient has a history of bradycardia/heart block and ventricular tachycardia/ventricular fibrillation. He also has a history of an abnormal EKG. Prior to the initiation of this procedure, the patientwas designated as ASA Class IV. Patient Status at Catheterization: The patient presented with: non-STEMI. This patient was on betablockers prior to the procedure. No stress or imaging studies were performedprior to this procedure Technique: A 6Fr sheath was inserted in the right femoral artery utilizing the Seldinger technique. The left coronary artery was injected utilizinga 6Fr JL 5 catheter. A 6Fr JR 4 catheter was used to inject the right coronary artery. Left ventricle was performed with a 6Fr Angledpigtail catheter. Bivaluridin bolus 69mg and infusion 161mg/hr wasadministered. A total of 150cc of Omnipaque were opened, 65cc of Omnipaque were administered and 85cc of Omnipaque were wasted. Radiation: Fluorotime was 10.0 minutes, dose area product was 141,466 mGYcm2 and air kermawas 1,798 mGY. The patient received the following medications prior to and duringthe procedure: Aspirin (any), Clopidogrel and Bivalirudin. Hemodynamics: Left Heart Pressures Resting: Syst Diast EDP a v m Ao 115 55 77 LV 109 20 Post Contrast: Syst Diast EDP a v m LV 99 19 Comments: LVp 101/3,18 AOp 113/51 (77). Coronary Angiography: Dominance: Right Left Main The left main was normal. Left Anterior Descending There was mild diffuse disease of the entire vessel segment ofthe left anterior descending artery (LAD). The mid segment of theLAD had a hazy single discrete 50% stenosis. This lesionrepresented in-stent restenosis following a prior coronary stent insertion. Left Circumflex There was mild diffuse disease of the entire vessel segment ofthe left circumflex artery (LCX). Right Coronary Artery There was moderate diffuse disease of the proximal segment ofthe right coronary artery (RCA). The RCA was small. The distalsegment of the RCA had a single discrete total occlusion. Distal flowwas via bridging collaterals. The distal vessel was small. Intravascular Imaging/Physiology: Fractional flow reserve was performed to assess the 50% stenosis inthe mid LAD using a 6 Fr EBU 4.0 guiding catheter and a Verrata wire. Adenosine 140 mcg/kg/min intravenous infusion was administered.Wire delivery was successful. The FFR across the 50% mid LAD lesion was0.85. This lesion was not hemodynamically signficant. Lesions areconsidered to be hemodynamically significant if the FFR is less than 0.80. Instantaneous wave-free ratio (iFR) was determined across the 50% stenosis in the mid LAD using a 6 Fr EBU 4.0 guiding catheter and a Verrata wire. Wire delivery was successful. The IFR across the 50%mid LAD lesion was 0.89. This lesion was not hemodynamicallysignficant. Lesions are generally considered to be hemodynamically significantif the iFR is less than 0.88, and are considered to be indeterminate in the range from 0.88 to 0.97. Additional Findings: 0.93 on repeat. Vascular Access Angiogram: A selective angiogram at the right femoral artery revealed nosignificant obstructive disease. Vascular Closure Device: A 6 Fr Perclose was deployed at the right femoral artery accesssite. This device was successful. Conclusions: * Two vessel coronary artery disease (LAD and RCA) * Elevated left ventricular end diastolic pressure * LAD restenosis not hemodynamically significant by FFR. Complications/Events: The patient had no complications during these procedures. The attending physician was present for the entire procedure. Dr. Jaron Jarquin M.D. performed the coronary angiography, leftheart catheterization, access site angiography, FFR # coronary, IFR-coronaryand vascular closure device. Jaron Jarquin M.D. Electronically Signed by: Jaron Jarquin M.D. Report Finalized: 01/06/2014 16:11 Kenia Bauman MD CARDIAC CATH ORDERAB LES * (ABNORMAL) Cardiac Enzymes (01/06/2014 12:40 PM EDT) [facility] Troponin-T 0.10(H) <=0.03 ng/mL MONICA PERALTA Comment: 0.03 ng/mL: Represents the 99th percentile upper reference limit for normals. >0.03 ng/mL: Elevated cardiac troponin T level indicative of myocardial damage. Diagnosis of acute, evolving or recent [place] requires a typical rise and gradual fall of cTnT with at least ONE of the following: a) Ischemic symptoms b) Development of pathologic Q waves on the ECG c) ECG changes indicative of eschemia (S-T segment elevation/depression) d) Coronary artery intervention Serial bloods should be obtained for testing on admission, at 6 to 9 hrs and again at 12 to 24 hrs if earlier samples are negative and the clinical index of suspicion is high. Reference: [Myocardial infarction redefined? a consensus document of the Joint Society of Cardiology/[place] College of Cardiology Committee for the redefinition of myocardial infarction. ??Journal of the [place] College of Cardiology 2000; 36: 959-969] CK, Total 127 0 - 200 unit/L MONICA PERALTA Blood specimen (specimen) 01/06/2014 12:40 PM EDT 01/06/2014 12:52 PM EDT Narrative Resulting Agency Comment Spec In Lab Kenia Bauman MD CHEMISTRY ORDERABLES Performing Organization Address [facility] Co de Phone Number MONICA MILTONZINA * POCT Glucose (01/06/2014 12:15 PM EDT) [facility] POC Glucose 165 60 - 199 mg/dL [facility] Comment: Supplemental ranges: <140 mg/dL before meals <180 mg/dL all other times of the day Blood specimen (specimen) 01/06/2014 12:15 PM EDT 01/06/2014 12:15 PM EDT Kenia Bauman MD POINT OF CARE TEST O RDERABLES [facility] * Cardiac Enzymes (01/06/2014 11:30 AM EDT) Troponin-T Not Perf <=0.03 ng/mL [facility] [employer]IUM Comment: Unable to quantitate due to sample hemolysis. ??Sample redraw suggested. Segundo Viera, 01/06/14 12:30, blr 0.03 ng/mL: Represents the 99th percentile upper reference limit for normals. >0.03 ng/mL: Elevated cardiac troponin T level indicative of myocardial damage. Diagnosis of acute, evolving or recent [place] requires a typical rise and gradual fall of cTnT with at least ONE of the following: a) Ischemic symptoms b) Development of pathologic Q waves on the ECG c) ECG changes indicative of eschemia (S-T segment elevation/depression) d) Coronary artery intervention Serial bloods should be obtained for testing on admission, at 6 to 9 hrs and again at 12 to 24 hrs if earlier samples are negative and the clinical index of suspicion is high. Reference: [Myocardial infarction redefined? a consensus document of the Joint Society of Cardiology/[place] College of Cardiology Committee for the redefinition of myocardial infarction. ??Journal of the [place] College of Cardiology 2000; 36: 959-969] CK, Total 132 0 - 200 unit/L MONICA [facility] Blood specimen (specimen) 01/06/2014 11:30 AM EDT 01/06/2014 11:45 AM EDT Narrative Resulting Agency Comment Spec In Lab Kenia Bauman MD CHEMISTRY ORDERABLES Performing Organization Address City/[facility] Co de Phone Number MONICA [facility] * (ABNORMAL) APTT (01/06/2014 11:30 AM EDT) PTT 48(H) 25 - 35 sec [facility] [employer] Comment: Recommended therapeutic PTT range for full dose unfractionated heparin is 80-114 seconds. Blood specimen (specimen) 01/06/2014 11:30 AM EDT 01/06/2014 11:45 AM EDT Narrative Resulting Agency Comment Spec In Lab Kenia Bauman MD HEMATOLOGY ORDERABLE [facility] * LDL Cholesterol, Direct (01/06/2014 11:30 AM EDT) LDL Chol Direct 13 <=99 mg/dL [facility] Comment: The National Cholesterol Education Program (NCEP) has set the following guidelines for LDL Cholesterol: Reference range: ?? Optimal: ?<100 mg/dL ?? Near Optimal/Above Optimal: ?? 100-129 mg/dL ?? Borderline high: ?130-159 mg/dL ?? High: ? 160-189 mg/dL ?? Very high: ?>yq=510 mg/dL TATI 2001: 285(19):3507-2594 Blood specimen (specimen) 01/06/2014 11:30 AM EDT 01/06/2014 11:45 AM EDT Narrative Resulting Agency Comment Spec In Lab Kenia Bauman MD CHEMISTRY ORDERABLES Performing Organization Address City/State/[facility] Co de Phone Number [facility] * Echocardiogram Transthoracic(Leb) (01/06/2014 10:29 AM EDT) EF 56 [facility]ART[facility] SYSTEM Anatomical Region Laterality Modality Other 01/06/2014 Narrative 01/06/2014 10:41 AM EDT Procedure: ? Transthoracic Echocardiogram Patient: ? PAMELA Gordon ? (Age): 1950(63) Med Rec#: ?[id number] ? Sex: ?M ? [place] [place] Ht / Wt: ??185(cm)/92(kg) Pt. Loc: ? CCU ?BSA: ?2.17 Study Date: ?01/06/2014 ? Pt. Type: Inpatient Tape: ? Referring: Kenia Bauman ([id number]) Referring: BRUCE Rn Triage: Jodie Givens Diagnosis:CPT Code(s): ??Echo Full (80206), ??Spectral Doppler (42087), Color Doppler (33486), Indication(s): ??Tachycardia Rhythm: HR ?BP ?114/63 ?? SUMMARY: 1. The left ventricle is mildly dilated. ??Mild concentric left ventricular hypertrophy is observed. ??There is normal global left ventricular systolic function. ??The quantitative left ventricular ejection fraction by biplane Paz's method is 56%. ??There are no left ventricular segmental wall motion abnormalities. 2. Right ventricular chamber size, wall thickness, and systolic function are within normal limits. 3. There is no hemodynamically significant valve disease. 4. See remainder of report for additional findings. FINDINGS: Left Ventricle ?The left ventricle is mildly dilated. ?Mild concentric left ventricular hypertrophy is observed. ?There is no evidence of LVOT obstruction. ?No ventricular septal defect is visualized. ?There is normal global left ventricular systolic function. ?The quantitative left ventricular ejection fraction by biplane Paz's method is 56%. ?There are no left ventricular segmental wall motion abnormalities. ?Left sided filling pressure could not be assessed by Doppler. Left Atrium ?The left atrium is severely dilated.(45 ml/m2) ?No atrial septal defect is visualized. Right Ventricle ?Right ventricular chamber size, wall thickness, and systolic function are within normal limits. ?Pulmonary artery hypertension could not be assessed due to inadequate tricuspid regurgitation jet. ?The estimated right atrial pressure is 15 mmHg. Right Atrium ?The right atrium is mildly dilated. Aortic Valve ?The aortic valve is tricuspid. ?The aortic valve leaflets are mildly thickened. ?There is no evidence of aortic valve stenosis. ?There is no evidence of aortic regurgitation. Mitral Valve ?The mitral valve appears normal in structure and function. ?There is no evidence of mitral valve leaflet prolapse. ?There is mild (1+/4+) mitral regurgitation present. Tricuspid Valve ?The tricuspid valve appears normal in structure and function. ?There is no evidence of tricuspid valve regurgitation present. Pulmonic Valve ?The pulmonic valve appears normal in structure and function. ?There is trace pulmonic regurgitation present. Pericardium ?The pericardium appears normal and there is no evidence of a pericardial effusion. Aorta ?The aortic root is normal in size. ?The ascending aorta is normal in size. ?There is no evidence of coarctation of the aorta. Pulmonary Artery ?The main pulmonary artery appears normal. Venous ?The inferior vena cava appears dilated. ?There is less than 50% respiratory change in the inferior vena cava dimension consistent with elevated right atrial pressure. Misc ?There is no hemodynamically significant valve disease. ?See remainder of report for additional findings. ?Two-dimensional echo, spectral Doppler and color Doppler performed. Wall Motion: Segment Name ?Rest ? Base-Anteroseptal ?? Normal ? Base-Anterior ? Normal ? Base-Anterolateral ??Normal ? Base-Posterolateral Normal ? Base-Inferior ? Normal ? Base-Inferoseptal ?? Normal ? Mid-Anteroseptal ?Normal ? Mid-Anterior ?Normal ? Mid-Anterolateral ?? Normal ? Mid-Posterolateral ??Normal ? Mid-Inferior ?Normal ? Mid-Inferoseptal ?Normal ? [place]-Septal ? Normal ? [place]-Anterior ? Normal ? [place]-Lateral ?Normal ? [place]-Inferior ? Normal ? [place]-Tip ?Normal ? Chambers ?Value ?Units (Range) ? EF ??Bi-p Simp ? 56 ? % (55 to 80) ? IVSd 2D ? 1.2 ?cm ? LVIDd 2D ?6.1 ?cm ? PWd 2D ?1.2 ?cm ? LVIDs 2D ?4.3 ?cm ? LVFS 2D ? 30 ? % ? LA area ? 25 ? cm2 (<21) ? RA area ? 19.2 ? cm2 (<18) ? Ao root ? 3 ?cm (2.1 to 3.6) ? Asc Ao ?2.9 ?cm (2 to 3.5) ? Mitral Valve ?Value ?Units (Range) ? E peak ?0.78 ? m/sec ? E/A ratio ? 1.6 ?ratio ? MVDT ?221 ?msec ? E1 ?0.07 ? m/sec ? E/E1 ?11 ? ratio ? Tricuspid/Pulmonic Valves ?Value ?Units (Range) ? RAP ? 15 ? mmHg ? This report has been electronically signed by: Warren Atkinson M.D. ? 01/06/2014 10:41:12 Images reviewed and interpretation verified [facility] Procedure Note Warren Atkinson MD - 01/06/2014 Procedure: Transthoracic Echocardiogram Patient: PAMELA Gordon (Age): 1950(63) Med Rec#: [id number] Sex: M [place] [facility] [place] Ht / Wt: 185(cm)/92(kg) Pt. Loc: CCU BSA: 2.17 Study Date: 01/06/2014 Pt. Type: Inpatient Tape: Referring: Kenia Bauman ([id number]) Referring: BRUCE Rn Triage: Jodie Givens Diagnosis:CPT Code(s): Echo Full (73992), Spectral Doppler (90177), Color Doppler (61721), Indication(s): Tachycardia Rhythm: HR BP 114/63 SUMMARY: 1. The left ventricle is mildly dilated. [...] See remainder of report for additional findings. FINDINGS: Left Ventricle The left ventricle is mildly dilated. Mild concentric left ventricular hypertrophy is observed. There is no evidence of LVOT obstruction. No ventricular septal defect is visualized. There is normal global left ventricular systolic function. The quantitative left ventricular ejection fraction by biplane Paz's method is 56%. There are no left ventricular segmental wall motion abnormalities. Left sided filling pressure could not be assessed by Doppler. Left Atrium The left atrium is severely dilated.(45 ml/m2) No atrial septal defect is visualized. Right Ventricle Right ventricular chamber size, wall thickness, and systolic function are within normal limits. Pulmonary artery hypertension could not be assessed due to inadequate tricuspid regurgitation jet. The estimated right atrial pressure is 15 mmHg. Right Atrium The right atrium is mildly dilated. Aortic Valve The aortic valve is tricuspid. The aortic valve leaflets are mildly thickened. There is no evidence of aortic valve stenosis. There is no evidence of aortic regurgitation. Mitral Valve The mitral valve appears normal in structure and function. There is no evidence of mitral valve leaflet prolapse. There is mild (1+/4+) mitral regurgitation present. Tricuspid Valve The tricuspid valve appears normal in structure and function. There is no evidence of tricuspid valve regurgitation present. Pulmonic Valve The pulmonic valve appears normal in structure and function. There is trace pulmonic regurgitation present. Pericardium The pericardium appears normal and there is no evidence of a pericardial effusion. Aorta The aortic root is normal in size. The ascending aorta is normal in size. There is no evidence of coarctation of the aorta. Pulmonary Artery The main pulmonary artery appears normal. Venous The inferior vena cava appears dilated. There is less than 50% respiratory change in the inferior vena cava dimension consistent with elevated right atrial pressure. Misc There is no hemodynamically significant valve disease. See remainder of report for additional findings. Two-dimensional echo, spectral Doppler and color Doppler performed. Wall Motion: Segment Name Rest Base-Anteroseptal Normal Base-Anterior Normal Base-Anterolateral Normal Base-Posterolateral Normal Base-Inferior Normal Base-Inferoseptal Normal Mid-Anteroseptal Normal Mid-Anterior Normal Mid-Anterolateral Normal Mid-Posterolateral Normal Mid-Inferior Normal Mid-Inferoseptal Normal [place]-Septal Normal [place]-Anterior Normal [place]-Lateral Normal [place]-Inferior Normal [place]-Tip Normal Chambers Value Units (Range) EF Bi-p Simp 56 % (55 to 80) IVSd 2D 1.2 cm LVIDd 2D 6.1 cm PWd 2D 1.2 cm LVIDs 2D 4.3 cm LVFS 2D 30 % LA area 25 cm2 (<21) RA area 19.2 cm2 (<18) Ao root 3 cm (2.1 to 3.6) Asc Ao 2.9 cm (2 to 3.5) Mitral Valve Value Units (Range) E peak 0.78 m/sec E/A ratio 1.6 ratio MVDT 221 msec E1 0.07 m/sec E/E1 11 ratio Tricuspid/Pulmonic Valves Value Units (Range) RAP 15 mmHg This report has been electronically signed by: Warren Atkinson M.D. 01/06/2014 10:41:12 Images reviewed and interpretation verified [facility] Kenia Bauman MD ECHO ORDERABLES * EKG 12 Lead (01/06/2014 9:29 AM EDT) Ventricular rate 61 BPM MUSE SYSTEM Atrial Rate 61 BPM MUSE SYSTEM P-R Interval 210 ms MUSE SYSTEM QRS Duration 128 ms MUSE SYSTEM Q-T Interval 450 ms MUSE SYSTEM QTC Calculated (Bezet) 453 ms MUSE SYSTEM Calculated P [place] 36 degrees MUSE SYSTEM Calculated R [place] -51 degrees MUSE SYSTEM Calculated T [place] -62 degrees MUSE SYSTEM INTERPRETATION Sinus rhythm with 1st degree A-V block Left axis deviation Non-specific intra-ventricula r conduction block T wave abnormality, consider inferior ischemia T wave abnormality, consider anterolateral ischemia Inferior infarct , age undetermined Abnormal ECG When compared with ECG of 14-MAY-2013 07:40, T wave inversion now evident in Inferior leads T wave inversion now evident in Anterior leads Confirmed by MD BLEDSOE BRUCE ([id number]) on 01/06/2014 1:03:43 PM MUSE SYSTEM 01/06/2014 9:29 AM EDT 01/06/2014 1:03 PM EDT Kenia Bauman MD ECG ORDERABLES Performing Organization Address City/[facility]/ZIP Co de Phone Number MUSE SYSTEM * POCT Glucose (01/06/2014 8:28 AM EDT) POC Glucose 104 60 - 199 mg/dL [email or web address] Comment: Supplemental ranges: <140 mg/dL before meals <180 mg/dL all other times of the day Blood specimen (specimen) 01/06/2014 8:28 AM EDT 01/06/2014 8:28 AM EDT Kenia Bauman MD POINT OF CARE TEST O RDERABLES Performing Organization Address [facility] Co de Phone Number [email or web address] * XR chest routine PA & lateral (01/06/2014 6:05 AM EDT) Anatomical Region Laterality Modality Chest N/A Radiographic [place] ging 01/06/2014 6:05 AM EDT Narrative 01/06/2014 6:11 AM EDT Examination CHEST ROUTINE 2 VIEWS Clinical History 63 yo man w/ ASCVD s/p stents who presents VT s/p cardioversion and 2 day hx of dyspnea on exertion Comparison 01/05/2014. Technique PA and lateral radiographs of the chest. Findings There is left-sided linear subsegmental atelectasis seen. ??No focal consolidations, effusions, or pneumothorax is seen. ??Cardiomediastinal silhouette is within normal limits. ??Incidental note is made of a coronary stent. ??Surgical clips project over the right upper quadrant of the abdomen. ?? Mild degenerative changes seen within the thoracic spine. Impression Left basilar subsegmental atelectasis. Procedure Note Michael Zamora MD - 01/06/2014 Examination CHEST ROUTINE 2 VIEWS Clinical History 63 yo man w/ ASCVD s/p stents who presents VT s/p cardioversion and 2 dayhx of dyspnea on exertion Comparison 01/05/2014. Technique PA and lateral radiographs of the chest. Findings There is left-sided linear subsegmental atelectasis seen. No focal consolidations, effusions, or pneumothorax is seen. Cardiomediastinal silhouette is within normal limits. Incidental note is made of a coronary stent. Surgical clips project over the right upper quadrant of theabdomen. Mild degenerative changes seen within the thoracic spine. Impression Left basilar subsegmental atelectasis. Kenia Bauman MD IMG DX ORDERABLES * Creatinine, urine, random (01/06/2014 3:06 AM EDT) U Creatinine 167 mg/dL CERDELMAR MILLENNIUM Urine specimen (specimen) 01/06/2014 3:06 AM EDT 01/06/2014 3:15 AM EDT Narrative Resulting Agency Comment Spec In Lab Kenia Bauman MD URINE ORDERABLES Performing Organization Address [facility]/ZIP Co de Phone Number CERNER [employer] * Sodium, urine, random (01/06/2014 3:06 AM EDT) U Sodium 85 mmol/L CERNER MILLENNIUM Urine specimen (specimen) 01/06/2014 3:06 AM EDT 01/06/2014 3:15 AM EDT Narrative Resulting Agency Comment Spec In Lab Kenia Bauman MD URINE ORDERABLES CERDELMAR [employer] * (ABNORMAL) Urinalysis with microscopic (01/06/2014 3:06 AM EDT) Glucose UA Negative Negative mg/dL CERNER MILLENNIUM Protein UA 30(A) Negative mg/dL CERNER MILLENNIUM Bilirubin UA Negative Negative mg/dL CERNER MILLENNIUM Comment: Clinical correlation required for positive Urine Bilirubin results as false positive may occur with some drugs and drug related products. If a false positive is suspected a serum total bilirubin should be considered if clinically indicated. Urobilinogen UA Normal Normal mg/dL CERNER MILLENNIUM pH UA 5.0 5.0 - 8.0 CERNER MILLENNIUM Blood UA Negative Negative mg/dL CERNER MILLENNIUM Ketones UA Negative Negative mg/dL CERNER MILLENNIUM Nitrite UA Negative Negative CERNER MILLENNIUM Leukocytes UA Negative Negative mcL [facility] Appearance UA Hazy(A) Clear CERNER MILLENNIUM Spec [place] UA 1.019 1.002 - 1.030 CERNER MILLENNIUM Color UA Yellow Yellow CERNER MILLENNIUM RBC UA 2 0 - 3 /HPF CERNER MILLENNIUM WBC UA 4(H) 0 - 3 /HPF CERNER MILLENNIUM Squam Epith UA 1 <=4 /HPF CERNE R MILLENNIUM Hyaline Cast UA 21(H) 0 - 2 /LPF CER NER MILLENNIUM Gran Cast UA 1(H) <=0 /LPF CERNER MILLENNIUM CaOx Stephanie UA Occasional( A) None /HPF CERNER MILLENNIUM Amorph Stephanie UA Occasional( A) None /HPF CERNER MILLENNIUM Urine specimen (specimen) 01/06/2014 3:06 AM EDT 01/06/2014 3:15 AM EDT Narrative Resulting Agency Comment Spec In Lab Kenia Bauman MD URINE ORDERABLES [facility] * (ABNORMAL) Cardiac Enzymes (01/06/2014 2:50 AM EDT) Troponin-T 0.05(H) <=0.03 ng/mL [facility] Comment: 0.03 ng/mL: Represents the 99th percentile upper reference limit for normals. >0.03 ng/mL: Elevated cardiac troponin T level indicative of myocardial damage. Diagnosis of acute, evolving or recent [place] requires a typical rise and gradual fall of cTnT with at least ONE of the following: a) Ischemic symptoms b) Development of pathologic Q waves on the ECG c) ECG changes indicative of eschemia (S-T segment elevation/depression) d) Coronary artery intervention Serial bloods should be obtained for testing on admission, at 6 to 9 hrs and again at 12 to 24 hrs if earlier samples are negative and the clinical index of suspicion is high. Reference: [Myocardial infarction redefined? a consensus document of the Joint Society of Cardiology/[place] College [employer]iology Committee for the redefinition of myocardial infarction. ??Journal of the [place] College [employer]iology 2000; 36: 959-969] CK, Total 101 0 - 200 unit/L CERNER MILLENNIUM Blood specimen (specimen) 01/06/2014 2:50 AM EDT 01/06/2014 2:59 AM EDT Narrative Resulting Agency Comment Spec In Lab Kenia Bauman MD CHEMISTRY ORDERABLES CERNER MILLENNIUM * (ABNORMAL) Differential, Automated (01/06/2014 2:50 AM EDT) Neutrophils % 62.9 34.0 - 71.0 % CERNER MILLENNIUM Neutr Abs (ANC) 6.93(H) 1.50 - 6.30 x10(3)/mc L CERNER MILLENNIUM Lymphocytes % 28.8 19.0 - 53.0 % CERNER MILLENNIUM Lymphocytes Abs 3.2 1.0 - 3.6 x10(3)/mc L CERNER MILLENNIUM Monocytes % 5.3 4.0 - 13.0 % CERNER MILLENNIUM Monocyte Abs 0.6 0.2 - 1.0 x10(3)/mc L CERNER MILLENNIUM Eosinophils % 2.5 0.0 - 7.0 % CERNER MILLENNIUM Eosinophils Abs 0.3 0.0 - 0.5 x10(3)/mc L CERNER MILLENNIUM Basophils % 0.2 0.0 - 2.0 % CERNER MILLENNIUM Basophils Abs 0.0 0.0 - 0.2 x10(3)/mc L CERNER MILLENNIUM Immature Gran % 0.30 0.00 - 0.66 % CERNER MILLENNIUM Comment: Immature granulocytes(IG's)percentage and absolute count will include metamyelocytes, myelocytes, and promyelocytes. Blood smears from CBCs yielding IG's will be scanned manually for concordance. If this scan disagrees with the automated IG or if promyelocytes are noted, a manual differential will be performed. Elyssa Gran Abs 0.03 0.00 - 0.05 x10(3)/mc L CERNER MILLENNIUM Blood specimen (specimen) 01/06/2014 2:50 AM EDT 01/06/2014 2:58 AM EDT Narrative Resulting Agency Comment Spec In Lab Kenia Bauman MD HEMATOLOGY ORDERABLE S CERNER MILLENNIUM * (ABNORMAL) Hemogram (01/06/2014 2:50 AM EDT) WBC 11.0(H) 4.0 - 10.0 x10(3)/mcL CERNER MILLENNIUM RBC 4.40(L) 4.63 - 6.08 x10(6)/mcL CERNER MILLENNIUM Hemoglobin 13.0(L) 13.7 - 17.5 gm/dL CERNER MILLENNIUM Hematocrit 39.2(L) 40.0 - 51.0 % CERNER MILLENNIUM MCV 89.1 79.0 - 92.0 fL CERNER MILLENNIUM MCH 29.5 25.6 - 32.2 pg CERNER MILLENNIUM MCHC 33.2 32.0 - 36.5 gm/dL CERNER MILLENNIUM Platelets 152 145 - 370 x10(3)/mcL CERNER MILLENNIUM RDWSD 48.2(H) 35.0 - 46.0 fL CERNER MILLENNIUM RDWCV 14.9(H) 10.9 - 14.4 % CERNER MILLENNIUM MPV 10.0 9.0 - 12.0 fL CERNER MILLENNIUM Blood specimen (specimen) 01/06/2014 2:50 AM EDT 01/06/2014 2:58 AM EDT Narrative Resulting Agency Comment Spec In Lab Kenia Bauman MD HEMATOLOGY ORDERABLE S CERDELMAR MILLENNIUM * (ABNORMAL) Magnesium (01/06/2014 2:50 AM EDT) Magnesium 0.67(L) 0.69 - 1.07 mmol/L CERNER MILLENNIUM Blood specimen (specimen) 01/06/2014 2:50 AM EDT 01/06/2014 2:58 AM EDT Narrative Resulting Agency Comment Spec In Lab Kenia Bauman MD CHEMISTRY ORDERABLES [facility] * (ABNORMAL) Lipid panel (fasting) (01/06/2014 2:50 AM EDT) Chol, Total 55 <=199 mg/dL [facility] Comment: Recommendations of the NCEP Adult Treatment Panel for the following risk cutoff thresholds for the [place] population: Desirable: <200 mg/dL Borderline High: 200-239 mg/dL High: > or = 240 mg/dL Triglycerides 148 <=149 mg/dL [facility] Comment: Reference Range: Normal triglycerides: ??<150 mg/dL Borderline high: ??150-199 mg/dL High: ??200-499 mg/dL Very high: ??>az=122 mg/dL TATI 2001; 285(19):9528-2167 HDL 26(L) >=40 mg/dL [facility] Comment: Reference range: ??Low HDL: ?? < 40 mg/dL ??Normal: ?40-60 mg/dL ??Desirable: > 60 mg/dL TATI 2001; 285(19):9677-2430 LDL Cholesterol -1 <=99 mg/dL [facility] Comment: Reference range: ?? Optimal: ?<100 mg/dL ?? Near Optimal/Above Optimal: ?? 100-129 mg/dL ?? Borderline high: ?130-159 mg/dL ?? High: ? 160-189 mg/dL ?? Very high: ?>so=051 mg/dL TATI 2001: 285(19):7307-6829 Chol/HDL Ratio 2.1 ratio MYRNA Webster [facility] Comment: A Cholesterol to HDL ratio below 4:1 is desirable. ??Studies suggest that increased CAD risk occurs at ratios above 5 for females and above 6 for men. ? [place] Heart Association ??(http://www.americanheart.org) ? Yenny Int Med, 1994; 121:641 ? AM J Med, 1998; 105(1A):48S Blood specimen (specimen) 01/06/2014 2:50 AM EDT 01/06/2014 2:58 AM EDT Narrative Resulting Agency Comment Spec In Lab Kenia Bauman MD CHEMISTRY ORDERABLES CERNER [employer] * (ABNORMAL) Basic Metabolic Panel (non-fasting) (01/06/2014 2:50 AM EDT) Glucose Lvl 107 60 - 199 mg/dL CERNER MILLENNIUM Comment:Diabetes: >=200 mg/d L plus symptoms BUN 31(H) 10 - 20 mg/dL CERNER MILLENNIUM Creatinine 1.41 0.80 - 1.50 mg/dL CERNER MILLENNIUM Comment: Please note that the pediatric reference intervals supplied above were [place] [facility] [place] Results from pediatric patients should be interpreted in conjunction to the patient's age, height and muscle mass. Sodium 140 135 - 145 mmol/L CERNER MILLENNIUM Potassium 4.4 3.5 - 5.0 mmol/L CERNER MILLENNIUM Comment: Please note: ??Patients with WBC >100,000 may have falsely elevated Potassium levels. ??For accurate Potassium quantification in these patients send serum separator tube (gold top) for subsequent determinations. ??Contact the Clinical Chemistry Laboratory if there are any questions. Chloride 102 98 - 107 mmol/L CERNER MILLENNIUM CO2 25 22 - 31 mmol/L CERNER MILLENNIUM Anion Gap 13 5 - 15 mmol/L CERNER MILLENNIUM Calcium 9.8 8.5 - 10.5 mg/dL CERNER MILLENNIUM Estimated GFR 51(L) >=60 CERNER MILLENNIUM Comment: This estimated GFR (eGFR) value [...] the following links into your internet browser. [email or web address] Blood specimen (specimen) 01/06/2014 2:50 AM EDT 01/06/2014 2:58 AM EDT Narrative Resulting Agency Comment Spec In Lab Kenia Bauman MD CHEMISTRY ORDERABLES Performing Organization Address [facility] Co de Phone Number MONICA [employer]IUM * EKG 12 Lead (01/06/2014 2:01 AM EDT) Ventricular rate 69 BPM MUSE SYSTEM Atrial Rate 69 BPM MUSE SYSTEM P-R Interval 212 ms MUSE SYSTEM QRS Duration 126 ms MUSE SYSTEM Q-T Interval 416 ms MUSE SYSTEM QTC Calculated (Bezet) 445 ms MUSE SYSTEM Calculated P [place] 18 degrees MUSE SYSTEM Calculated R [place] -55 degrees MUSE SYSTEM Calculated T [place] -70 degrees MUSE SYSTEM INTERPRETATION Sinus rhythm with 1st degree A-V block Left anterior fascicular block Non-specific intra-ventricula r conduction block T wave abnormality, consider inferior ischemia T wave abnormality, consider anterolateral ischemia Abnormal ECG Confirmed by MD Thomas Douglas ([id number]) on 01/07/2014 4:01:06 PM MUSE SYSTEM 01/06/2014 2:01 AM EDT 01/07/2014 4:01 PM EDT Unknown ECG ORDERABLES Performing Organization Address [facility] Co de Phone Number MUSE SYSTEM documented in this encounter Visit Diagnoses Diagnosis Sustained VT (ventricular tachycardia)- Primary Paroxysmal ventricular tachycardia ASCVD (arteriosclerotic cardiovascular disease) Unspecified cardiovascular disease Non-ST elevation myocardial infarction (NSTEMI) Acute myocardial infarction, subendocardial infarction, episode of care unspecified Tachycardia Tachycardia, unspecified ICD (implantable cardioverter-defibrillator), dual, in situ Depression Depressive disorder, not elsewhere classified Hypertension Unspecified essential hypertension Hypomagnesemia Disorders of magnesium metabolism ICD (implantable cardioverter-defibrillator), dual, in situ documented in this encounter Administered Medications Inactive Administered Medications - up to 3 most recent administrations Medication Order MAR Action Action Date Dose Rate Site acetaminophen (TYLENOL) tablet 650 mg 650 mg, Oral, EVERY 6 HOURS PRN, Starting on Thu01/06/14 at 1559, Until Thu01/11/14 at 1539, Pain, For Mild Pain, Maximum dose of acetaminophen is 4000 mg from all sources in 24 hours., Routine Given 01/10/2014 12:48 PM EDT 650 mg Given 01/09/2014 4:32 AM EDT 650 mg ALPRAZolam (XANAX) tablet 0.5 mg 0.5 mg, Oral, 3 TIMES DAILY PRN, Starting on Thu01/07/14 at 1623, Until Thu01/11/14 at 1539, Anxiety, Routine Given 01/10/2014 9:39 PM EDT 0.5 mg Given 01/09/2014 8:12 PM EDT 0.5 mg Given 01/09/2014 4:33 AM EDT 0.5 mg aspirin EC tablet 81 mg 81 mg, Oral, DAILY, First dose (after last modification) on Thu01/06/14 at 1245, Until Discontinued, Routine Given 01/11/2014 8:47 AM EDT 81 mg Given 01/10/2014 9:08 AM EDT 81 mg Given 01/09/2014 8:32 AM EDT 81 mg BUpivacaine (PF) (MARCAINE) 0.5 % (5 mg/mL) injection 150 mg 150 mg (30 mL), Subcutaneous, ONCE, 1 dose, On Thu01/06/14 at 1700, EP (Intra-Procedure), Routine Given 01/06/2014 4:35 PM EDT 150 mg BUpivacaine (PF) (MARCAINE) 0.5 % (5 mg/mL) injection 150 mg 150 mg (30 mL), Subcutaneous, ONCE, 1 dose, On Thu01/10/14 at 1500, EP (Intra-Procedure), Routine Given 01/10/2014 3:00 PM EDT 150 mg ceFAZolin (ANCEF) 1g in dextrose 5% 50mL 1,000 mg (1 g), Intravenous, EVERY 8 HOURS, 3 doses, First dose on Thu01/10/14 at 1930, Last dose on Thu01/11/14 at 1130, Administer over 30 Minutes, Recovery (Recovery-Hospital Unit), Indication for (Active or Suspected): Prophylaxis Given 01/11/2014 12:01 PM EDT 1,000 mg 100 mL /hr Given 01/11/2014 5:58 AM EDT 1,000 mg 100 mL/hr Given 01/10/2014 9:05 PM EDT 1,000 mg 100 mL/hr ceFAZolin (ANCEF) 2g in dextrose 5% 50 mL 2 g, Intravenous, ONCE, 1 dose, On Thu01/10/14 at 1500, EP (Intra-Procedure), Indication for (Active or Suspected): Prophylaxis Given 01/10/2014 3:15 PM EDT 2 g clopidogrel (PLAVIX) tablet 75 mg 75 mg, Oral, DAILY, First dose on Thu01/06/14 at 0900, Until Discontinued, Routine Given 01/11/2014 8:47 AM EDT 75 mg Given 01/10/2014 9:08 AM EDT 75 mg Given 01/09/2014 8:32 AM EDT 75 mg diaZEPam (VALIUM) tablet 5 mg 5 mg, Oral, ONCE, 1 dose, On Thu01/06/14 at 1300, Cath (Day of Procedure), Routine Given 01/06/2014 2:15 PM EDT 5 mg diphenhydrAMINE (BENADRYL) capsule 25 mg 25 mg, Oral, ONCE, 1 dose, On Thu01/06/14 at 1300, Cath (Day of Procedure), Routine Given 01/06/2014 2:15 PM EDT 25 mg fentaNYL 50mcg/mL injection 25-50 mcg, Intravenous, EVERY 5 MIN PRN, Starting on Thu01/06/14 at 1639, Until Thu01/06/14 at 1741, Pain, As needed to induce or maintain moderate sedation [place] [facility] [place] Moderate Sedation Protocol, Not to exceed 50 mcg/dose, 250 mcg/hr, or 20 mcg/kg per case., EP (Intra-Procedure), Routine Given 01/06/2014 4:52 PM EDT 25 mcg Given 01/06/2014 4:42 PM EDT 25 mcg Given 01/06/2014 4:30 PM EDT 25 mcg fentaNYL 50mcg/mL injection 25-50 mcg, Intravenous, EVERY 5 MIN PRN, Starting on Thu01/10/14 at 1444, Until Thu01/11/14 at 0043, Pain, As needed to induce or maintain moderate sedation per [facility] [place] Moderate Sedation Protocol, Not to exceed 50 mcg/dose, 250 mcg/hr, or 20 mcg/kg per case., EP (Intra-Procedure), Routine Given 01/10/2014 4:48 PM EDT 25 mcg Given 01/10/2014 4:44 PM EDT 25 mcg Given 01/10/2014 4:42 PM EDT 25 mcg heparin (porcine) injection 4,000 Units 4,000 Units, Intravenous, ONCE, 1 dose, On Thu01/06/14 at 0500, Patient Weight 90-94 kg INITIAL LOADING DOSE , Routine Given 01/06/2014 5:53 AM EDT 4,000 Units heparin 25,000 units in dextrose 5% 500 mL infusion 350-7,000 Units/hr (rounded to 7-140 mL/hr), Intravenous, CONTINUOUS, Starting on Thu01/06/14 at 0500, Until Thu01/06/14 at 1807, Patient Weight 90-94 kg Initial dose - 1,000 units/hr = 20 mL/hr aPTT less than 60 sec - increase by 350 units/hr = 7 mL/hr aPTT 60-79 sec- increase by 200 units/hr = 4 mL/hr aPTT 80-114 sec - no change aPTT 115-129 sec - decrease by 100 units/hr = 2 mL/hr aPTT 130-145 sec - stop infusion for 30 min then decrease by 200 units/hr = 4 mL/hr aPTT greater than 145 sec - stop infusion for 60 min then decrease by 300 units/hr = 6 mL/hr aPTT greater than 145 sec times 2 - call mill house supervisor See Bolus dosing guidance for aPTT values less than 80 seconds under PRN medications Repeat aPTT 6 hours after initiating heparin. Then 6 hours after each dose adjustment. When 2 consecutive aPTT within target range of 80 - 114 seconds, change aPTT to once every 24 hours with A.M. labs while on heparin. RN to order required aPTT - Per Protocol, Routine Rate/Dose Change 01/06/2014 12:00 PM EDT 1,350 Units/hr 27 mL/hr New Bag 01/06/2014 5:54 AM EDT 1,000 Units/hr 20 mL/hr hydrOXYzine (ATARAX) tablet 25 mg 25 mg, Oral, 3 TIMES DAILY PRN, Starting on Thu01/06/14 at 0258, Until Thu01/11/14 at 1539, pain, anxiety, Routine Given 01/06/2014 8:49 AM EDT 25 mg insulin aspart (novoLOG) VIAL injection 2-8 Units 2-8 Units, Subcutaneous, EVERY 4 HOURS SCHEDULED, First dose on Thu01/06/14 at 0400, Until Discontinued, CORRECTION BOLUS Moderate BG 140 - 160 Give 2 units BG 161 - 200 Give 4 units BG 201 - 240 Give 6 units BG greater than 240, give 8 units and recheck BG in 2 hours. If BG remains greater than 240, repeat 8 units (no more than three times) & call for new basal insulin orders. If less than 240 after two hours, give no insulin and resume prior schedule. Given 01/11/2014 11:59 AM EDT 8 Units Given 01/11/2014 8:49 AM EDT 2 Units Given 01/11/2014 12:03 AM EDT 4 Units lactobacillus (BACID) tablet 1 tablet 1 tablet, Oral, DAILY, First dose on Thu01/06/14 at 0900, Until Discontinued, Routine Given 01/11/2014 8:47 AM EDT 1 tablet Given 01/10/2014 9:08 AM EDT 1 tablet Given 01/09/2014 8:32 AM EDT 1 tablet lamoTRIgine (LaMICtal) tablet 100 mg 100 mg, Oral, DAILY, First dose on Thu01/06/14 at 0900, Until Discontinued, Routine Given 01/11/2014 8:47 AM EDT 100 mg Given 01/10/2014 9:08 AM EDT 100 mg Given 01/09/2014 8:32 AM EDT 100 mg lidocaine (XYLOCAINE) 20 mg/mL (2 %) injection 400 mg 400 mg (20 mL), Subcutaneous, ONCE, 1 dose, On Thu01/06/14 at 1700, EP (Intra-Procedure), Routine Given 01/06/2014 4:35 PM EDT 400 mg lidocaine (XYLOCAINE) 20 mg/mL (2 %) injection 400 mg 400 mg (20 mL), Subcutaneous, ONCE, 1 dose, On Thu01/10/14 at 1500, EP (Intra-Procedure), Routine Given 01/10/2014 3:00 PM EDT 400 mg lisinopril (PRINIVIL;ZESTRIL) tablet 20 mg 20 mg, Oral, DAILY, First dose on Thu01/08/14 at 1945, Until Discontinued, Routine Given 01/11/2014 8:47 AM EDT 20 mg Given 01/10/2014 9:08 AM EDT 20 mg Given 01/09/2014 11:50 AM EDT 20 mg LORazepam (ATIVAN) tablet 1 mg 1 mg, Oral, ONCE, 1 dose, On Thu01/08/14 at 1945, Routine Given 01/08/2014 8:27 PM EDT 1 mg magnesium oxide (MAG-OX) tablet 400 mg 400 mg, Oral, 2 TIMES DAILY, First dose (after last modification) on Thu01/11/14 at 0900, Until Discontinued, Routine Given 01/11/2014 8:47 AM EDT 400 mg magnesium sulfate 1g in dextrose 5% 100mL 1 g, Intravenous, ONCE, 1 dose, On Thu01/06/14 at 0415, Administer over 60 Minutes Given 01/06/2014 4:30 AM EDT 1 g 100 mL/hr magnesium sulfate 1g in dextrose 5% 100mL 1 g, Intravenous, ONCE, 1 dose, On Thu01/07/14 at 0600, Administer over 60 Minutes Given 01/07/2014 6:31 AM EDT 1 g 100 mL/hr magnesium sulfate 1g in dextrose 5% 100mL 1 g, Intravenous, ONCE, 1 dose, On Thu01/10/14 at 0645, Administer over 60 Minutes Given 01/10/2014 7:07 AM EDT 1 g 100 mL/hr magnesium sulfate 2 g in sterile water 50 mL 2 g, Intravenous, ONCE, 1 dose, On Thu01/08/14 at 1200, Administer over 120 Minutes Given 01/08/2014 1:36 PM EDT 2 g 25 mL/hr magnesium sulfate 2 g in sterile water 50 mL 2 g, Intravenous, ONCE, 1 dose, On Thu01/08/14 at 1945, Administer over 120 Minutes Given 01/08/2014 8:21 PM EDT 2 g 25 mL/hr metoprolol (LOPRESSOR) pre-split tablet 12.5 mg 12.5 mg, Oral, EVERY 6 HOURS SCHEDULED, First dose on Thu01/06/14 at 1200, Until Discontinued, Hold if HR <60 or SBP <90., Routine Given 01/08/2014 5:21 PM EDT 12.5 mg Given 01/08/2014 12:35 PM EDT 12.5 mg Given 01/07/2014 11:59 PM EDT 12.5 mg metoprolol succinate (TOPROL-XL) XL tablet 100 mg 100 mg, Oral, DAILY, First dose (after last modification) on Thu01/11/14 at 0900, Until Discontinued, Routine Given 01/11/2014 8:47 AM EDT 100 mg metoprolol succinate (TOPROL-XL) XL tablet 50 mg 50 mg, Oral, DAILY, First dose on Thu01/08/14 at 1945, Until Discontinued, Routine Given 01/10/2014 9:08 AM EDT 50 mg Given 01/09/2014 11:49 AM EDT 50 mg Given 01/08/2014 8:28 PM EDT 50 mg midazolam (PF) (VERSED) 1 mg/mL injection 0.5-1 mg 0.5-1 mg, Intravenous, EVERY 5 MIN PRN, Starting on Thu01/06/14 at 1639, Until Thu01/06/14 at 1741, Sleep, As needed to induce or maintain moderate [place] [facility] [place] Protocol, Not to exceed 1 mg per dose, 5mg/hour, or 0.2mg/kg per case., EP (Intra-Procedure), Routine Given 01/06/2014 4:52 PM EDT 1 mg Given 01/06/2014 4:42 PM EDT 1 mg Given 01/06/2014 4:30 PM EDT 1 mg midazolam (PF) (VERSED) 1 mg/mL injection 0.5-1 mg 0.5-1 mg, Intravenous, EVERY 5 MIN PRN, Starting on Thu01/10/14 at 1444, Until Thu01/11/14 at 0043, Sleep, As needed to induce or maintain moderate sedation [place] [facility] [place] Sedation Protocol, Not to exceed 1 mg per dose, 5mg/hour, or 0.2mg/kg per case., EP (Intra-Procedure), Routine Given 01/10/2014 4:56 PM EDT 1 mg Given 01/10/2014 4:47 PM EDT 1 mg Given 01/10/2014 4:44 PM EDT 1 mg nadolol (CORGARD) tablet 20 mg 20 mg, Oral, DAILY, First dose on Thu01/06/14 at 0900, Until Discontinued, Hold for hr<60, SBP<100, Routine Given 01/06/2014 8:49 AM EDT 20 mg neomycin-polymyxin B (NEOSPORIN) irrigation solution Irrigation, ONCE, On Thu01/10/14 at 1500, 1 dose, EP (Intra-Procedure) Given 01/10/2014 3:00 PM EDT nortriptyline (PAMELOR) capsule 50 mg 50 mg, Oral, 2 TIMES DAILY, First dose on Thu01/06/14 at 0900, Until Discontinued, Routine Given 01/06/2014 8:48 AM EDT 50 mg oxyCODONE-acetaminophen (PERCOCET) 5-325 mg per tablet 1 tablet 1 tablet, Oral, EVERY 4 HOURS PRN, Starting on Thu01/10/14 at 1823, Until Thu01/11/14 at 1539, Pain, May repeat in 30 minutes if inadequate (Total maximum daily dose acetaminophen is 4 gm), Cath (Recovery-Hospital Unit), Routine Given 01/11/2014 1:32 PM EDT 1 tablet Given 01/11/2014 8:48 AM EDT 1 tablet Given 01/11/2014 3:51 AM EDT 1 tablet pantoprazole (PROTONIX) tablet 40 mg 40 mg, Oral, 2 TIMES DAILY, First dose on Thu01/06/14 at 0900, Until Discontinued, Restricted to patients on clopidogrel (PLAVIX) who require a proton pump inhibitor, Routine Given 01/11/2014 8:48 AM EDT 40 mg Given 01/10/2014 8:09 PM EDT 40 mg Given 01/10/2014 9:09 AM EDT 40 mg potassium chloride (K-DUR/KLOR-CON) extended release tablet 40 mEq 40 mEq, Oral, EVERY 4 HOURS PRN, Starting on Thu01/07/14 at 0529, Until Thu01/11/14 at 1539, hypokalemia, Administer for serum potassium (mMol/L) of 3.6 - 3.8 , Routine Given 01/07/2014 6:31 AM EDT 40 mEq rosuvastatin (CRESTOR) tablet 20 mg 20 mg, Oral, EVERY EVENING, First dose on Thu01/06/14 at 1700, Until Discontinued, Routine Given 01/10/2014 6:10 PM EDT 20 mg Given 01/09/2014 5:33 PM EDT 20 mg Given 01/08/2014 5:21 PM EDT 20 mg sodium chloride 0.9 % flush 5 mL 5 mL, Intravenous, 2 TIMES DAILY, First dose on Thu01/06/14 at 0900, Until Discontinued, Routine Given 01/10/2014 8:11 PM EDT 5 mLs Given 01/09/2014 8:12 PM EDT 5 mLs Given 01/09/2014 11:54 AM EDT 5 mLs sodium chloride 0.9 % flush 5 mL 5 mL, Intravenous, EVERY 12 HOURS, First dose on Thu01/06/14 at 1300, Until Discontinued, Cath (Day of Procedure), Routine Given 01/11/2014 12:01 PM EDT 5 mLs Given 01/11/2014 3:51 AM EDT 5 mLs Given 01/09/2014 11:50 PM EDT 5 mLs sodium chloride 0.9% infusion 200 mL/hr, Intravenous, CONTINUOUS, Starting on Thu01/06/14 at 1300, Until Thu01/06/14 at 1600, Cath (Day of Procedure) New Bag 01/06/2014 12:49 PM EDT 200 mL/hr 200 mL/hr sodium chloride 0.9% infusion 125 mL/hr, Intravenous, CONTINUOUS, Starting on Thu01/06/14 at 1630, Until 01/07/14 at 0029 Rate/Dose Verify 01/06/2014 10:00 PM EDT 125 mL/hr 125 mL/hr Rate/Dose Verify 01/06/2014 8:00 PM EDT 125 mL/hr 125 mL/ hr New Bag 01/06/2014 6:08 PM EDT 125 mL/hr 125 mL/hr zolpidem (AMBIEN) tablet 10 mg 10 mg, Oral, NIGHTLY PRN, Starting on Thu01/06/14 at 0258, Until Thu01/11/14 at 1539, Sleep, Routine Given 01/11/2014 12:02 AM EDT 10 mg Given 01/09/2014 11:48 PM EDT 10 mg Given 01/09/2014 12:12 AM EDT 10 mg documented in this encounter Active and Recently Administered Medications Times are shown in EDT. Scheduled Medication Order 01/09/2014 01/10/2014 01/11/2014 aspirin EC tablet 81 mg (CANCELED) 81 mg, Oral, DAILY, First dose (after last modification) on Thu01/06/14 at 1245, Until Discontinued, Routine 0832 (Given - Provider: Ervin Fontaine, RN) 0908 (Given - Provider: Loraine Saldivar, RN) 0847 (Given - Provider: Ervin Fontaine RN) BUpivacaine (PF) (MARCAINE) 0.5 % (5 mg/mL) injection 150 mg (COMPLETED) 150 mg (30 mL), Subcutaneous, ONCE, 1 dose, On Thu01/10/14 at 1500, EP (Intra-Procedure), Routine 1500 (Given - Provider: Yaron Don RN) ceFAZolin (ANCEF) 1g in dextrose 5% 50mL (COMPLETED) 1,000 mg (1 g), Intravenous, EVERY 8 HOURS, 3 doses, First dose on Thu01/10/14 at 1930, Last dose on Thu01/11/14 at 1130, Administer over 30 Minutes, Recovery (Recovery-Hospital Unit), Indication for (Active or Suspected): Prophylaxis 2105 (Given - Provider: Yamile Raya RN) 0558 (Given - Provider: Yamile Raya RN)1201 (Given - Provider: Ervin Fontaine RN) ceFAZolin (ANCEF) 2g in dextrose 5% 50 mL (COMPLETED) 2 g, Intravenous, ONCE, 1 dose, On Thu01/10/14 at 1500, EP (Intra-Procedure), Indication for (Active or Suspected): Prophylaxis 1515 (Given - Provider: Yaron Don RN) clopidogrel (PLAVIX) tablet 75 mg (CANCELED) 75 mg, Oral, DAILY, First dose on Thu01/06/14 at 0900, Until Discontinued, Routine 0832 (Given - Provider: Ervin Fontaine RN) 0908 (Given - Provider: Loraine Saldivar, NAHUN) 0847 (Given - Provider: Ervin Fontaine, NAHUN) insulin aspart (novoLOG) VIAL injection 2-8 Units (CANCELED) 2-8 Units, Subcutaneous, EVERY 4 HOURS SCHEDULED, First dose on Thu01/06/14 at 0400, Until Discontinued, CORRECTION BOLUS Moderate BG 140 - 160 Give 2 units BG 161 - 200 Give 4 units BG 201 - 240 Give 6 units BG greater than 240, give 8 units and recheck BG in 2 hours. If BG remains greater than 240, repeat 8 units (no more than three times) & call for new basal insulin orders. If less than 240 after two hours, give no insulin and resume prior schedule. 0400 (Not Given - Provider: Teresita Lozano RN - Reason: Contraindicated)0834 (Given - Provider: Ervin Fontaine RN)1152 (Given - Provider: Ervin Fontaine RN)1733 (Given - Provider: Ervin Fontaine RN)2011 (Given - Provider: Yamile Raya RN)2345 (Given - Provider: Yamile Raya RN) 0525 (Given - Provider: Yamile Raya RN)0800 (Not Given - Provider: Loraine Saldivar RN - Reason: NPO - Comment: NPO for procedure)1244 (Given - Provider: Loraine Saldivar RN)1811 (Given - Provider: Loraine Saldivar RN)2105 (Given - Provider: Yamile Raya RN) 0003 (Given - Provider: Yamile Raya RN)0400 (Not Given - Provider: Yamile Raya RN - Reason: Order parameters not met)0849 (Given - Provider: Ervin Fontaine RN)1159 (Given - Provider: Ervin Fontaine RN) lactobacillus (BACID) tablet 1 tablet (CANCELED) 1 tablet, Oral, DAILY, First dose on Thu01/06/14 at 0900, Until Discontinued, Routine 0832 (Given - Provider: Ervin Fontaine RN) 0908 (Given - Provider: Loraine Saldivar RN) 0847 (Given - Provider: Ervin Fontaine RN) lamoTRIgine (LaMICtal) tablet 100 mg (CANCELED) 100 mg, Oral, DAILY, First dose on Thu01/06/14 at 0900, Until Discontinued, Routine 0832 (Given - Provider: Ervin Fontaine RN) 0908 (Given - Provider: Loraine Saldivar RN) 0847 (Given - Provider: Ervin Fontaine RN) lidocaine (XYLOCAINE) 20 mg/mL (2 %) injection 400 mg (COMPLETED) 400 mg (20 mL), Subcutaneous, ONCE, 1 dose, On Thu01/10/14 at 1500, EP (Intra-Procedure), Routine 1500 (Given - Provider: Yaron Don RN) lisinopril (PRINIVIL;ZESTRIL) tablet 20 mg 20 mg, Oral, DAILY, First dose on Thu01/08/14 at 1945, Until Discontinued, Routine 1150 (Given - Provider: Ervin Fontaine RN) 0908 (Given - Provider: Loraine Saldivar RN) 0847 (Given - Provider: Ervin Fontaine RN) magnesium oxide (MAG-OX) tablet 400 mg (CANCELED) 400 mg, Oral, 2 TIMES DAILY, First dose (after last modification) on Thu01/11/14 at 0900, Until Discontinued, Routine 0847 (Given - Provider: Ervin Fontaine RN) magnesium sulfate 1g in dextrose 5% 100mL (COMPLETED) 1 g, Intravenous, ONCE, 1 dose, On Thu01/10/14 at 0645, Administer over 60 Minutes 0707 (Given - Provider: Yamile Raya RN) metoprolol succinate (TOPROL-XL) XL tablet 100 mg (CANCELED) 100 mg, Oral, DAILY, First dose (after last modification) on Thu01/11/14 at 0900, Until Discontinued, Routine 0847 (Given - Provider: Ervin Fontaine RN) metoprolol succinate (TOPROL-XL) XL tablet 50 mg 50 mg, Oral, DAILY, First dose on Thu01/08/14 at 1945, Until Discontinued, Routine 1149 (Given - Provider: Ervin Fontaine RN) 0908 (Given - Provider: Loraine Saldivar RN) neomycin-polymyxin B (NEOSPORIN) irrigation solution (COMPLETED) Irrigation, ONCE, On Thu01/10/14 at 1500, 1 dose, EP (Intra-Procedure) 1500 (Given - Provider: Yaron Don RN) pantoprazole (PROTONIX) tablet 40 mg (CANCELED) 40 mg, Oral, 2 TIMES DAILY, First dose on Thu01/06/14 at 0900, Until Discontinued, Restricted to patients on clopidogrel (PLAVIX) who require a proton pump inhibitor, Routine 0832 (Given - Provider: Ervin Fontaine RN)2011 (Given - Provider: Yamile Raya RN) 0909 (Given - Provider: Loraine Saldivar RN)2008 (Given - Provider: Yamile Raya RN) 0848 (Given - Provider: Ervin Fontaine RN) rosuvastatin (CRESTOR) tablet 20 mg (CANCELED) 20 mg, Oral, EVERY EVENING, First dose on Thu01/06/14 at 1700, Until Discontinued, Routine 1733 (Given - Provider: Ervin Fontaine RN) 1810 (Given - Provider: Loraine Saldivar RN) sodium chloride 0.9 % flush 5 mL (CANCELED) 5 mL, Intravenous, 2 TIMES DAILY, First dose on Thu01/06/14 at 0900, Until Discontinued, Routine 1154 (Given - Provider: Ervin Fontaine RN)2011 (Given - Provider: Yamile Raya RN) 0900 (Not Given - Provider: Loraine Saldivar RN - Reason: Contraindicated)2010 (Given - Provider: Yamile Raya RN) 0900 (Not Given - Provider: Ervin Fontaine RN - Reason: See comment - Comment: flushed on am assessment at 0730) sodium chloride 0.9 % flush 5 mL (CANCELED) 5 mL, Intravenous, EVERY 12 HOURS, First dose on Thu01/06/14 at 1300, Until Discontinued, Cath (Day of Procedure), Routine 0100 (Not Given - Provider: Teresita Lozano RN - Reason: Contraindicated)1300 (Not Given - Provider: Ervin Fontanie RN - Reason: See comment - Comment: flushed at 0900 med pass)2350 (Given - Provider: Yamile Raya RN) 1300 (Not Given - Provider: Loraine Saldivar RN - Reason: Contraindicated) 0351 (Given - Provider: Yamile Raya RN)1201 (Given - Provider: Ervin Fontaine RN) PRN Medication Order 01/09/2014 01/10/2014 01/11/2014 acetaminophen (TYLENOL) tablet 650 mg (CANCELED) 650 mg, Oral, EVERY 6 HOURS PRN, Starting on Thu01/06/14 at 1559, Until Thu01/11/14 at 1539, Pain, For Mild Pain, Maximum dose of acetaminophen is 4000 mg from all sources in 24 hours., Routine 0432 (Given - Provider: Teresita Lozano RN) 1248 (Given - Provider: Loraine Saldivar RN - Comment: frontal headache pain) ALPRAZolam (XANAX) tablet 0.5 mg (CANCELED) 0.5 mg, Oral, 3 TIMES DAILY PRN, Starting on Thu01/07/14 at 1623, Until Thu01/11/14 at 1539, Anxiety, Routine 0433 (Given - Provider: Teresita Lozano RN)2011 (Given - Provider: Yamile Raya, NAHUN) 2138 (Given - Provider: Yamile Raya RN) fentaNYL 50mcg/mL injection () 25-50 mcg, Intravenous, EVERY 5 MIN PRN, Starting on Thu01/10/14 at 1444, Until Thu01/11/14 at 0043, Pain, As needed to induce or maintain moderate sedation per [facility] [place] Sed[place] Protocol, Not to exceed 50 mcg/dose, 250 mcg/hr, or 20 mcg/kg per case., EP (Intra-Procedure), Routine 151 (Given - Provider: Yaron Don RN)1518 (Given - Provider: Yaron Don RN)1534 (Given - Provider: Yaron Don RN)1550 (Given - Provider: Yaron Don RN)1604 (Given - Provider: Yaron Don RN)1615 (Given - Provider: Yaron Don RN)1642 (Given - Provider: Yaron Don RN)1644 (Given - Provider: Yaron Don RN)1648 (Given - Provider: Yaron Don RN) midazolam (PF) (VERSED) 1 mg/mL injection 0.5-1 mg () 0.5-1 mg, Intravenous, EVERY 5 MIN PRN, Starting on Thu01/10/14 at 1444, Until Thu01/11/14 at 0043, Sleep, As needed to induce or maintain moderate sedation per [facility] [place] Sedation Protocol, Not to exceed 1 mg per dose, 5mg/hour, or 0.2mg/kg per case., EP (Intra-Procedure), Routine 151 (Given - Provider: Yaron Don RN)1518 (Given - Provider: Yaron Don RN)1524 (Given - Provider: Yaron Don RN)1551 (Given - Provider: Yaron Don RN)1602 (Given - Provider: Yaron Don RN)1616 (Given - Provider: Yaron Don RN)1642 (Given - Provider: Yaron Don RN)1644 (Given - Provider: Yaron Don RN)1647 (Given - Provider: Yaron Don RN)1656 (Given - Provider: Yaron Don RN) oxyCODONE-acetaminophen (PERCOCET) 5-325 mg per tablet 1 tablet 1 tablet, Oral, EVERY 4 HOURS PRN, Starting on Thu01/10/14 at 1823, Until Thu01/11/14 at 1539, Pain, May repeat in 30 minutes if inadequate (Total maximum daily dose acetaminophen is 4 gm), Cath (Recovery-Hospital Unit), Routine 1840 (Given - Provider: Loraine Saldivar RN - Comment: left chest pain s/p pacer)2008 (Given - Provider: Yamile Raya RN) 0003 (Given - Provider: Yamile Raya RN)0351 (Given - Provider: Yamile Raya RN)0848 (Given - Provider: Ervin Fontaine RN)1332 (Given - Provider: Ervin Fontaine RN) zolpidem (AMBIEN) tablet 10 mg (CANCELED) 10 mg, Oral, NIGHTLY PRN, Starting on Thu01/06/14 at 0258, Until Thu01/11/14 at 1539, Sleep, Routine 0012 (Given - Provider: Teresita Lozano RN)2348 (Given - Provider: Yamile Raya RN) 0002 (Given - Provider: Yamile Raya RN) documented in this encounter Care Teams [employer] Bander Relationship Specialty Start Date End Date Jennifer Haro MD PCP - General 01/07/12 01/30/14 documented as of this encounter
--- OUTSIDE RECORDS SUMMARY | 2023-11-03 01:29 | XMS_ITS | Encounter Summary ---
Author Organization [facility] [place] [address] Care Team Providers Care Ship Engines Operating Engineer Name Role Phone Ángel Bingham MD Primary Care Provider [phone] Encounter Details Date Type Department Care Team (Latest Contact Info) Description 01/31/2014 10:40 AM EDT Office Visit Cardiology at [address] [phone] Kit Self MD [facility] [place] [address] ASCVD (arteriosclerotic cardiovascular disease); Sustained ventricular tachycardia Discharge Disposition: Home Social History Tobacco [...] Sign Reading Time Taken Comments Blood Pressure 122/84 01/31/2014 10:45 AM EDT Pulse 78 01/31/2014 10:45 AM EDT Temperature - - Respiratory Rate - - Oxygen Saturation 99% 01/31/2014 10:45 AM EDT Inhaled Oxygen Concentration - - Weight 91.6 kg (202 lb) 01/31/2014 10:45 AM EDT Height 185.4 cm (6' 1) 01/31/2014 10:45 AM EDT Body Mass Index 26.65 01/31/2014 10:45 AM EDT documented in this encounter Patient Instructions * Patient Instructions* Kit Self MD - 01/31/2014 11:31 AM EDT 1. Continue current medications for now 2. If fatigue persists, consider switch to beta costa with less central nervous system effects, such betaxolol 10 mg daily 3. Cardiology follow-up in 6 months documented in this encounter Progress Notes * Kit Self MD - 01/31/2014 11:34 AM EDT Images from the original note were not included. [facility] [place]o [id number] CARDIOLOGY OUTPATIENT FOLLOW-UP NOTE Marquez Hendrix [id number] PCP: ÁNGEL BINGHAM MD 01/31/2014 PRIMARY CARE PROVIDER: ÁNGEL BINGHAM MD PROBLEM LIST: Patient Active Problem List Diagnosis ??? ASCVD (arteriosclerotic cardiovascular disease) ?? Heart catheterization in [facility] in 2007 with placement of a stent in an unspecified vessel ?? Repeat heart catheterization in 2008 with placement of stents to both the LAD and circumflex ?? Followup heart catheterization in 2008 showing stable results in both vessels ?? Her current chest discomfort in a somewhat atypical pattern beginning fall ?? Nuclear stress test at [facility] in [place], [place] May 02, 2013 during which he developed left shoulder and arm discomfort during submaximal exercise on the treadmill and after which he was converted to a pharmacologic test; nuclear imaging showed ejection fraction of 45% with a partially reversible inferior defect ?? Cath [facility] 05/13/2013: normal left main, mild diffuse disease throughout the LAD with an 80% mid stenosis representing a restenosis lesion, mild diffuse disease in the proximal obtuse marginal branch, and mild diffuse disease throughout the right coronary artery; status post 3.0 X 12 mm JON to 80%mid-LAD lesion (in-stent restenosis) ?? Heart catheterization [facility] January 06, 2014 showing normal left main, hazy 50% mid LAD stenosis, mild diffuse disease throughout the circumflex, and moderate diffuse disease in the proximal RCA with a totally occluded distal RCA with brisk flow via bridging collaterals; fractional flow reserveon the LAD 0.85 ??? ICD (implantable cardioverter-defibrillator), dual, in situ Ventricular electrode: [place] FONU2 [place] Model# 0292 Serial# [id number] Bipolar, steroid-tipped, active-fixation, single coil DF-4 lead Access: Left axillary vein Location: RV apex R wave, ICD: 9.6 mV Pacing threshold, ICD: 0.6 V at 0.5 ms Impedance, ICD: 913 ohms (74 ohms for shock vector) Pace the diaphragm at 10 V: No Atrial electrode: [place] FONU2 [place] Model# 4136 Serial# [id number] Bipolar, steroid-tipped, active-fixation IS-1 lead Access: Left axillary vein Location Right atrial appendage P wave, ICD: 4.3 mV Pacing threshold, pacemaker: 1.7 V at 0.5 ms Impedance, pacemaker: 538 ohms Pace the diaphragm at 10 V: No Pulse generator: DHgate Incepta Model# E162 Serial# [id number] DDDR ICD Location: Subcutaneous Defibrillation testing was [...] delay). There was minimal if any undersensing. ??? Hypertension ??? Hypomagnesemia ??? Sustained VT (ventricular tachycardia) ??? Depression --Treated with Lamictal. ??? Dermatitis ??? Irritant contact dermatitis ??? T2DM (type 2 diabetes mellitus) ??? Esophageal reflux ??? IBS (irritable bowel syndrome) ??? Diabetes mellitus ??? HTN (hypertension) ??? Elevated cholesterol MEDICATIONS: Current Outpatient Prescriptions Medication Sig Dispense Refill ??? nicotine (NICODERM CQ) 21 mg/[address] 1 patch onto the skin daily. 28 patch 3 ??? metoprolol succinate (TOPROL-XL) 50 mg Tablet Sustained Release 24 hr Take 2 tablets by mouth daily. 30 tablet 12 ??? oxyCODONE-acetaminophen (PERCOCET) 5-325 mg Tablet Take 1 tablet by mouth every 4 hours as needed for Pain. Do not take with Xanax or ambien. Do not take with alcohol. Do not drive while you are taking oxycodone 15 tablet 0 ??? lisinopril (PRINIVIL;ZESTRIL) 20 mg Tablet Take [...] 2 times daily. 90 tablet 6 ??? [place]-3 Fatty Acids (FISH OIL) 500 mg Cap Take by mouth daily. ??? multivitamin capsule Take 1 capsule by mouth daily. ??? LANCETS MISC by Misc.(Non-Drug; Combo Route) route. ??? lamotrigine (LAMICTAL) 100 mg tablet Take 100 mg by mouth daily. ??? alprazolam (XANAX XR) 3 mg 24 hr tablet Take 3 mg by mouth every morning. ? ? lactobac cmb #[id number] (PROBIOTIC & ACIDOPHILUS) 300-250 million cell- mg [...] the tongue every 5 minutes as needed. VITAL SIGNS: BP 122/84 Pulse 78 Ht 185.4 cm (6' 1) Wt 91.627 kg (202 lb) BMI 26.66 kg/m2 SpO2 99% SUBJECTIVE: This 63-year-old man comes for a follow-up visit after a recent hospitalization which occurred after he presented with sustained ventricular tachycardia. His symptoms apparently came on while taking a hike. He presented to [facility] [place] [facility] where he was found to bein ventricular tachycardia with a heart rate in the 160s and a borderline low blood pressure 108/64. He was sedated and cardioverted successfully. Unfortunately, he remembers the shock. He was transferred to [facility] where his evaluation included an echocardiogram which showed some inferobasal hypokinesia with an intact ejection fraction of 56% and a heart catheterization which showed a distally occluded RCA and a moderate disease in his mid LAD which did not appear significant by fractional flow reserve. He received an ICD in an uncomplicated procedure. He comes today indicating that he is doing fairly well. He has had no further symptoms to suggest ventricular tachycardia. During the last week or so he has been more fatigued than usual. Of interest, his nortriptyline was discontinued during his hospitalization because thought to be a potential trigger for his ventricular tachycardia and he says that his depression has been completely resolved. OBJECTIVE: Physical Exam: On exam he appeared in good health and spirits. Vital signs as documented. Skin warmand dry and without overt rashes. Neck without JVD. Lungs clear. Heart exam notable for regular rhythm, normal sounds and absence of murmurs, rubs or gallops. Abdomen unremarkable and without evidence of organomegally, masses, or abdominal aortic enlargement. Extremities non-edematous. DIAGNOSES: 1. Recent sustained ventricular tachycardia 2. Status post ICD 3. Coronary artery disease with recent heart catheterization showing occluded distal RCA (stable) and probably insignificant lesion in the mid LAD DISCUSSION: Overall he seems to be stable. He has had no further symptoms to suggest recurrent ventricular tachycardia. Whether this occurred from an abnormal substrate in the distribution of his distal right coronary artery or was related to other issues including his nortriptyline is unclear. At this point he is doing well. In terms of his fatigue, this is a potential beta cotsa side effect. He has apparently had similar issues with beta blockers in the past. If his symptoms persist (interestingly they were not present immediately upon his discharge), switching to a less lipophilic beta costa would be a reasonablenext step. PLAN: 1. Continue current medications 2. If fatigue persists, consider switching to a less lipophilic beta costa such as betaxolol 10 mg daily 3. Routine cardiology follow-up in 6 months documented in this encounter Plan of Treatment Upcoming Encounters Date Type Department Care Team (Late st Contact Info) Description 12/18/2023 10:00 AM EDT Hospital Encounter Non[place] [address] Arrived documented as of this encounter Visit Diagnoses Diagnosis ASCVD (arteriosclerotic cardiovascular disease) Unspecified cardiovascular disease Sustained ventricular tachycardia Paroxysmal ventricular tachycardia documented in this encounter Care Teams Ship Engines Operating Engineer Relationship Specialty Start Date End Date Ángel Bingham MD [facility] [phone] [place] [address] PCP - General 01/31/14 09/01/16 documented as of this encounter
--- OUTSIDE RECORDS SUMMARY | 2023-11-03 01:29 | XMS_ITS | Encounter Summary ---
Author Organization [facility] [place] [address] Care Team Providers Care Advanced Manager Name Role Phone Ángel Bingham MD Primary Care Provider [phone] Reason for Visit * Reason Onset Date Comments Medication Refill 02/03/2014 Encounter Details Date Type Department Care Team (Late st Contact Info) Description 02/03/2014 Refill Cardiology at [address] [phone] Kit Self MD [facility] [place] [address] Medication Refill Social History Tobacco Use Types [...] AM EDT Hospital Encounter Non-[place] [phone] Arrived documented as of this encounter Visit Diagnoses Not on filedocumented in this encounter Care Teams Advanced Manager Relationship Specialty Start Date End Date Ángel Bingham MD [facility] [address] [place] [address] [place] [address] PCP - General 01/31/14 09/01/16 documented as of this encounter
--- OUTSIDE RECORDS SUMMARY | 2023-11-03 01:29 | XMS_ITS | Encounter Summary ---
[facility] [place] [address] Care Team Providers Care Pool Finisher Name Role Phone Ángel Bingham MD Primary Care Provider [phone] Encounter Details Date Type Department Care Team (Late st Contact Info) Description 02/11/2014 Orders Only Cardiology at [address] [address] Social History Tobacco Use Types Packs/Day Years [...] AM EDT Hospital Encounter Non[place] [address] Arrived documented as of this encounter Procedures Procedure Name Priority Date/Time Associated Diagnosis Comments CARDIAC DEVICE CHECK - REMOTE PATIENT INITIATED Routine 02/11/2014 11:56 AM EDT documented in this encounter Results * Cardiac device check - Remote Patient Initiated (02/11/2014 11:56 AM EDT) Date Time Interrogation Session [id number] IDCO Type Interrogation Session Remote Patient Initiated IDCO Clinic Name [facility] IDCO Battery Date Time of Measurements [id number] IDCO Battery Status Beginning of Service IDCO Battery Remaining Longevity 126 mo IDCO Battery Remaining Percentage 100 % IDCO Capacitor Last Charge Date Time [id number] IDCO Capacitor Charge Time 9.7 s IDCO Capacitor Charge Type Reformation IDCO Episode Identifier APM-1 IDCO Episode Date Time [id number] IDCO Episode Type Category Periodic EGM IDCO Episode Vendor Type Category APMRT IDCO Episode Detection And Therapy Details Presenting EGM IDCO Episode Identifier Q IDCO Episode Date Time IDCO Episode Type Category Other IDCO Episode Vendor Type Category XANDER IDCO Episode Detection Interval Ventricular 1,304 ms IDCO Episode Duration 52 s IDCO Episode Detection And Therapy Details IDCO Episode Identifier IDCO Episode Date Time [id number] IDCO Episode Type Category Other IDCO Episode Vendor Type Category XANDER IDCO Episode Detection Interval Ventricular 845 ms IDCO Episode Duration 46 s IDCO Episode Detection And Therapy Details IDCO Episode Identifier IDCO Episode Date Time [id number] IDCO Episode Type Category Other IDCO Episode Vendor Type Category XANDER IDCO Episode Detection Interval Ventricular 1,000 ms IDCO Episode Duration 60 s IDCO Episode Detection And Therapy Details IDCO Episode Identifier IDCO Episode Date Time [id number] IDCO Episode Type Category Other IDCO Episode Vendor Type Category XANDER IDCO Episode Detection Interval Ventricular 938 ms IDCO Episode Duration 56 s IDCO Episode Detection And Therapy Details IDCO Episode Identifier IDCO Episode Date Time [id number] IDCO Episode Type Category Other IDCO Episode Vendor Type Category XANDER IDCO Episode Detection Interval Ventricular 909 ms IDCO Episode Duration 208 s IDCO Episode Detection And Therapy Details IDCO Episode Identifier IDCO Episode Date Time [id number] IDCO Episode Type Category Other IDCO Episode Vendor Type Category XANDER IDCO Episode Detection Interval Ventricular 984 ms IDCO Episode Duration 59 s IDCO Episode Detection And Therapy Details IDCO Episode Identifier IDCO Episode Date Time [id number] IDCO Episode Type Category Other IDCO Episode Vendor Type Category XANDER IDCO Episode Detection Interval Ventricular 896 ms IDCO Episode Duration 271 s IDCO Episode Detection And Therapy Details Q IDCO Episode Identifier RY IDCO Episode Date Time [id number] IDCO Episode Type Category Other IDCO Episode Vendor Type Category XANDER IDCO Episode Detection Interval Ventricular 882 ms IDCO Episode Duration 52 s IDCO Episode Detection And Therapy Details IDCO Episode Identifier IDCO Episode Date Time IDCO Episode Type Category Other IDCO Episode Vendor Type Category XANDER IDCO Episode Detection Interval Ventricular 938 ms IDCO Episode Duration 55 s IDCO Episode Detection And Therapy Details IDCO Episode Identifier IDCO Episode Date Time [id number] IDCO Episode Type Category Other IDCO Episode Vendor Type Category XANDER IDCO Episode Detection Interval Ventricular 968 ms IDCO Episode Duration 57 s IDCO Episode Detection And Therapy Details IDCO Episode Identifier V-1 IDCO Episode Date Time [id number] IDCO Episode Type Category VF IDCO Episode Vendor Type Category VF IDCO Episode Type Induced Flag YES IDCO Episode Detection Interval Ventricular 235 ms IDCO Episode Duration 54 s IDCO Episode Detection And Therapy Details VF ATPx1, 11J, 21J IDCO Episode Statistic Type Category VF IDCO Episode Statistic Vendor Type Category VF IDCO Episode Statistic Recent Count 0 IDCO Episode Statistic Recent Date Time Start 20140111 IDCO Episode Statistic Recent Date Time End 20140211 IDCO Episode Statistic Type Category VT IDCO Episode Statistic Vendor Type Category VT IDCO Episode Statistic Recent Count 0 IDCO Episode Statistic Recent Date Time Start 20140111 IDCO Episode Statistic Recent Date Time End 20140211 IDCO Episode Statistic Type Category VT IDCO Episode Statistic Vendor Type Category VT-1 IDCO Episode Statistic Recent Count 0 IDCO Episode Statistic Recent Date Time Start 20140111 IDCO Episode Statistic Recent Date Time End 20140211 IDCO Episode Statistic Type Category Monitor IDCO Episode Statistic Vendor Type Category IDCO Episode Statistic Recent Count 0 IDCO Episode Statistic Recent Date Time Start 20140111 IDCO Episode Statistic Recent Date Time End 20140211 IDCO Episode Statistic Type Category Other IDCO Episode Statistic Vendor Type Category IDCO Episode Statistic Recent Count 0 IDCO Episode Statistic Recent Date Time Start 20140111 IDCO Episode Statistic Recent Date Time End 20140211 IDCO Episode Statistic Type Category VT IDCO Episode Statistic Vendor Type Category NSVT IDCO Episode Statistic Recent Count 0 IDCO Episode Statistic Recent Date Time Start 20140111 IDCO Episode Statistic Recent Date Time End 20140211 IDCO Episode Statistic Type Category AT/AF IDCO Episode Statistic Vendor Type Category ATR IDCO Episode Statistic Recent Count 0 IDCO Episode Statistic Recent Date Time Start 20140111 IDCO Episode Statistic Recent Date Time End 20140211 IDCO Albaro Setting AT Mode Switch Mode DDIR IDCO Albaro Setting AT Mode Switch Rate [...] E162 IDCO Implantable Pulse Generator Serial Number [id number] IDCO Implantable Pulse Generator Cloth Baler [employer] IDCO Implantable Pulse Generator Implant Date 20140110 IDCO Implantable Lead Model 4136 IDCO Implantable Lead Serial Number [id number] IDCO Implantable Lead Cloth Baler Guidant IDCO Implantable Lead Implant Date IDCO Implantable Lead Polarity Type Bipolar Lead IDCO Implantable Lead Location Right Atrium IDCO Implantable Lead Model 0292 IDCO Implantable Lead Serial Number [id number] IDCO Implantable Lead Cloth Baler [employer] IDCO Implantable Lead Implant Date IDCO Implantable Lead Location Right Ventricle IDCO Lead Channel Measurements Date and Time Start 20140111 IDCO Lead Channel Measurements Date and Time End 20140210 IDCO Lead Channel Sensing Intrinsic Amplitude Mean 1.4 mV IDCO Lead Channel Sensing Polarity Bipolar IDCO Lead Channel Pacing Threshold Amplitude 0.7 V IDCO Lead Channel Pacing Threshold Pulse Width 0.5 ms IDCO Lead Channel Pacing Threshold Measurement Method Round Corner Cutter Operator Manual IDCO Lead Channel Pacing Threshold Polarity Bipolar IDCO Lead Channel Impedance Value 523 ohms IDCO Lead Channel Impedance Polarity Bipolar IDCO Lead Channel Measurements Date and Time Start 20140111 IDCO Lead Channel Measurements Date and Time End 20140210 IDCO Lead Channel Sensing Intrinsic Amplitude Mean 12.8 mV IDCO Lead Channel Sensing Polarity Bipolar IDCO Lead Channel Pacing Threshold Amplitude 0.6 V IDCO Lead Channel Pacing Threshold Pulse Width 0.5 ms IDCO Lead Channel Pacing Threshold Measurement Method Round Corner Cutter Operator Manual IDCO Lead Channel Pacing Threshold Polarity Bipolar IDCO Lead Channel Impedance Value 558 ohms IDCO Lead Channel Impedance Polarity Bipolar IDCO Lead High Voltage Channel Date Time [id number] IDCO Lead High Voltage Channel Impedance 79 ohms IDCO Lead High Voltage Channel Measurement Type Low Voltage Pulse IDCO Statistic Date Time Start 20140111 IDCO Statistic Date Time End 20140211 IDCO Albaro Statistic Date Time Start 20140111 IDCO Albaro Statistic Date Time End 20140211 IDCO Albaro Statistic RA Percent Paced 9 % IDCO Albaro Statistic RV Percent Paced 2 % IDCO Anatomical Region Laterality Modality Other 02/11/2014 11:5 6 AM EDT Physician Cardiology IMPLANTABLE CARD IAC DEVICE documented in this encounter Visit Diagnoses Not on filedocumented in this encounter Care Teams Pool Finisher Relationship Specialty Start Date End Date Ángel Bingham MD [facility] [address] [place] [address] PCP - General 01/31/14 09/01/16 documented as of this encounter
--- OUTSIDE RECORDS SUMMARY | 2023-11-03 01:29 | XMS_ITS | Encounter Summary ---
Author Organization [facility] [place] [address] Care Team Providers Care Warehouse Packaging Supervisor Name Role Phone Ángel Bingham MD Primary Care Provider [phone] Encounter Details Date Type Department Care Team (Late st Contact Info) Description 02/02/2014 Telephone Cardiology at [address] [phone] Lisbeth Huff, RN Social History Tobacco Use Types Packs/Day [...] * Telephone Encounter - Daphney Fisher - 02/03/2014 11:56 AM EDT I called to instruct Mr. Hendrix to take 100mg of Metoprolol daily but once on the phone he explained that the medication was making him fatigued and he was worried about his depression. I checked with Dr. Self and he would like the patient to switch to Betaxolol 10mg daily. Once he picks up the new medication he will discontinue the Metoprolol Please call a prescription in to the [facility] in [facility]. Thank you, Daphney * Telephone Encounter - Lisbeth García RN - 02/02/2014 1:25 PM EDT Marquez called wanting to clarify his metoprolol prescription. He has two scripts: One is for 50mg one tablet daily The second one is for 50mg two tablets daily Will review with Dr Self. documented in this encounter Plan of Treatment Upcoming Encounters Date Type Department Care Team (Late st Contact Info) Description 12/18/2023 10:00 AM EDT Hospital Encounter [place] [phone] Arrived documented as of this encounter Visit Diagnoses Not on filedocumented in this encounter Care Teams Warehouse Packaging Supervisor Relationship Specialty Start Date End Date Ángel Bingham MD [facility] 1 [facility] [place] [address] PCP - General 01/31/14 09/01/16 documented as of this encounter
--- OUTSIDE RECORDS SUMMARY | 2023-11-03 01:30 | XMS_ITS | Encounter Summary ---
Author Organization [facility] Address [facility] [place] [address] Care Team Providers Care Certified Orthotic Fitter Name Role Phone Jennifer Haro MD Primary Care Provider [phone] Encounter Details Date Type Department Care Team (Late st Contact Info) Description 01/06/2014 4:00 PM EDT - 01/06/2014 6:00 PM EDT Surgery [place]rophys[place] [address] José Manuel Cole MD [facility] [place] [address] ELECTROPHYSIOLOGY PROCEDURE Social History Tobacco Use Types [...] a 91 day new device [place] [facility] [place] [...] Center 02/07/2014 8:10 AM Kit Self MD [facility] Follow-Up Appointments Date and Time Provider and Specialty Location Jan 13, 2014 @ 2:[address] [facility] Your Inpatient Doctor: Huseyin Bauman MD Your Primary Care Provider: JENNIFER HARO MD [phone] For questions regarding this document or issues relating to this hospitalization on the Medical Service, please contact your inpatient physician through the [facility] Putty Maker . Issues afterhours and on weekends will [...] times daily. 90 tablet 6 05/14/2013 01/27/2017 [place]-3 Fatty Acids (FISH OIL) 500 mg Cap Take by mouth daily. 01/14/2016 lamotrigine (LAMICTAL) 100 mg tablet Take 200 mg by mouth daily. 09/01/2018 alprazolam (XANAX XR) 3 mg 24 hr tablet Take 3 mg by mouth nightly. 09/18/2020 lactobac cmb #[id number] (PROBIOTIC & ACIDOPHILUS) 300-250 million cell-mg Cap [...] answered at this time. Patient discharged to [facility] with Daughter in stable condition. Wheelchair offered; patient elected to walk. * Edy Torres PA - 01/11/2014 12:10 PM EDT Patient Name: Shahnaz Santiago Patient Age: 63 y.o. Birthdate: 1950 Admit date: 01/06/2014 Attending Physician: Huseyin Bauman MD Cardiac Electrophysiology Post-Iimplant Device Interrogation Note Shahnaz Santiago is a 63 y.o. male is POD # 1 following implant of a dual chamber, [employer] ICD for sustained ventricular tachycardia. He [...] in situ V45.02 Device data: Ventricular electrode: [employer] Ballinger Model# 0292 Serial# [id number] Bipolar, steroid-tipped, active-fixation, single coil DF-4 lead Access: Left axillary vein Location: RV apex R wave, ICD: 9.6 mV Pacing threshold, ICD: 0.6 V at 0.5 ms Impedance, ICD: 913 ohms (74 ohms for shock vector) Pace the diaphragm at 10 V: No Atrial electrode: [employer] Dextrus Model# 4136 Serial# [id number] Bipolar, steroid-tipped, active-fixation IS-1 lead Access: Left axillary vein Location Right atrial appendage P wave, ICD: 4.3 mV Pacing threshold, pacemaker: 1.7 V at 0.5 ms Impedance, pacemaker: 538 ohms Pace the diaphragm at 10 V: No Pulse generator: [employer] Incepta Model# E162 Serial# [id number] DDDR ICD Location: Subcutaneous Defibrillation testing was [...] ~ 91 days. Provider: MAXIMO Leija Provider#: [id number] Consult attending physician: Estefanía Cross MD * Raul Salmeron RN - 01/11/2014 8:04 AM EDT Inpatient Post ICD Implant Teaching Note Verbal teaching was performed today [id number] with the patient including the following: -Brief generalized teaching of how ICDs function, and the patient's specific indication for ICD implant -Activity restrictions post ICD implant -Remote monitoring of the ICD via telephone (patient was given [facility] Latitude communicator today). -ICD insertion site [...] were answered to the patient's satisfaction. * Huseyin Bauman MD - 01/11/2014 6:19 AM EDT [...] home today Code Status: Full Code EDIE FLORES DO [...] ICD placement today. Pt is [place]. No discharge needs identified at this time. Will continue to follow for coordination of care and discharge planning. Nora Schaeffer CHEMICAL PRODUCTION MACHINE OPERATOR CRC/Stacy Pabon MSN BSN RN CRC Office of Care Managment Pager [phone] * Yamile Raya RN - 01/10/2014 6:30 [...] One episode 7 beat run VT ~150bpm. [place] warm, needed to urinate during that time. [...] Daily Continuous Infusions: ??? bivalirudin Stopped (01/06/14 154) ??? adenosine Stopped (01/06/141544) PRN Meds:.potassium chloride, [...] 177 184 143* Recent Labs Basename 01/10/14 04201/09/14 0432 01/08/14 0703 NA 139 141 140 [...] GERD Code Status: Full Code EDIE FLORES, DO Cardiology S1 (pgr. 3011) * Huseyin Bauman MD - 01/09/2014 6:06 AM EDT [...] Q6H JULIET Continuous Infusions: ??? bivalirudin Stopped (01/06/14 1546) ??? adenosine Stopped (01/06/14 1545) PRN Meds:.potassium chloride, potassium chloride, ALPRAZolam, cyclobenzaprine, [...] Pt asymptomatic, will continue to monitor. * Huseyin Bauman MD - 01/08/2014 1:40 PM EDT [...] Code JORI AYALA MD Cardiology S1 (pgr. 3011) Cardiology Attending Addendum [...] in to convince him not to leave [facility] without an ICD. Will await his decision. * Huseyin Bauman MD - 01/07/2014 6:52 AM EDT [...] Jennifer Harris - 01/06/2014 4:24 PM EDT Recreation Assistant Encounter Note Patient Name: Shahnaz Santiago : [id number] MR#: [id number] Admit Date: 01/06/2014 1:50 AM Hospital Day 0 days Narrative: Shahnaz was happy and open to cell operator visit. Assessment: We had a long conversation of what he considered that has been militating against a health life-style: smoking. Moreover he was not a adventist person based on his experiences over the years yet accepts prayers. Intervention and Outcome: We prayed for God's healing & strength. Follow-up: Yes Time in Direct Care: 35 mins Jennifer Zimmer Steven 01/06/2014 * Stacy Pabon RN - 01/06/2014 2:17 PM EDT Office of Care Management Clinical Airfield Engineer Officer Patient Name: Shahnaz Santiago : 1950, 63 yrs Admission Date: 01/06/2014 1:50 AM Attending: Huseyin Bauman MD Order to Admit: Signed Record reviewed and patient discussed with multidisciplinary team. Lives in [place], [place] 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 He is independent and drives. Insurance: No Insurance. (Guillermo Aaron TRIPE FINISHER notified) [facility] in [facility] Medical/Surgical:63 yo man with ASCVD s/p stents 2008 [...] discharge planning. Office of Care Management Nora GOLDMANN RN/Stacy Pabon MSN RN Clinical Resource Coordinators Phone: [phone] Pager [phone] documented in this encounter H&P Notes * Edy Berry MD - 01/07/2014 5:02 PM EDT Inpatient Cardiac Electrophysiology Follow-up Note Date of Consultation: 01/07/2014 Admit Date: 01/06/2014 Place of Service: Inpatient Unit Reason for Consult: We are seeing Shahnaz Santiago for the evaluation of ventricular tachycardia Patient Active Problem List Diagnosis ??? ASCVD (arteriosclerotic cardiovascular disease) Overview Note: ?? Heart catheterization in [facility] in 2007 with placement of a stent in an unspecified vessel ?? Repeat heart catheterization in 2008 with placement of stents to both the LAD and circumflex ?? Followup heart catheterization in 2008 showing stable results in both vessels ?? Her current chest discomfort in a somewhat atypical pattern beginning fall ?? Nuclear stress test at [facility] in [place], [place] May 02, 2013 during which he developed left shoulder and arm discomfort during submaximal exercise on the treadmill and after which he was converted to a pharmacologic test; nuclear imaging showed ejection fraction of 45% with a partially reversible inferior defect ?? Cath [facility] [place]13[place]: [...] ASCVD (PCI to Cx, LAD; no hx IL) and tobacco use. 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 He has continued to go tocardiac rehab since then and had been doing well. On 01/04, he was walking in the [facility] when he developed sudden onset shortness of breath, which made him feel wobbly. He denied chest pain, palpitations (except for unusual pulsing in right ear lobe), or syncope though he felt weak and near-syncopal with exertion intermittently. His dyspnea remained present when he awoke the next morning, and he went to [facility], where ECG showed VT. He was cardioverted with return to NSR with 1st degree AVB, sub-mm STD in the lateral leads. His troponin was indeterminate. The patient was transferred to the [facility], [...] mg by mouth 2 times daily. ??? [place]-3 Fatty Acids (FISH OIL) 500 mg Cap Take by mouth daily. ??? multivitamin capsule Take 1 capsule by mouth daily. ??? LANCETS MISC by Misc.(Non-Drug; Combo Route) route. ??? lamotrigine (LAMICTAL) 100 mg tablet Take 100 mg by mouth daily. ??? alprazolam (XANAX XR) 3 mg 24 hr tablet Take 3 mg by mouth every morning. ? ? lactobac cmb #8-cdp-wunevkmanp (PROBIOTIC & ACIDOPHILUS) 300-250 million cell- mg [...] of cardiac arrest, pt believes due to IL at age of 53. Heavy smoker. His mother had PVD. 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 Heart catheterization in [facility] in 2007 with placement of a stent in an unspecified vessel ?? Repeat heart catheterization in 2008 with placement of stents to both the LAD and circumflex ?? Followup heart catheterization in 2008 showing stable results in both vessels ?? Her current chest discomfort in a somewhat atypical pattern beginning fall ?? Nuclear stress test at [facility] in [place], [place] May 02, 2013 during which he developed left shoulder and arm discomfort during submaximal exercise on the treadmill and after which he was converted to a pharmacologic test; nuclear imaging showed ejection fraction of 45% with a partially reversible inferior defect ?? Cath [facility] [place]/13[place]2013: [...] ASCVD (PCI to Cx, LAD; no hx IL) and tobacco use. Andressa recently had a [...] the next morning, and he went to [facility], where ECG showed VT. He was cardioverted with return to NSR with 1st degree AVB, sub-mm STD in the lateral leads. His troponin was indeterminate. The patient was transferred to the [facility], [...] mg by mouth 2 times daily. ??? [place]-3 Fatty Acids (FISH OIL) 500 mg Cap Take by mouth daily. ??? multivitamin capsule Take 1 capsule by mouth daily. ??? LANCETS MISC by Misc.(Non-Drug; Combo Route) route. ??? lamotrigine (LAMICTAL) 100 mg tablet Take 100 mg by mouth daily. ??? alprazolam (XANAX XR) 3 mg 24 hr tablet Take 3 mg by mouth every morning. ? ? lactobac cmb #1-lck-gdehunugui (PROBIOTIC & ACIDOPHILUS) 300-250 million cell- mg [...] of cardiac arrest, pt believes due to IL at age of 53. Heavy smoker. His mother had PVD. 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 He should ideally check pulse for any recurrent symptoms of VT (e.g. Weakness, SOB) and not delay hospital presentation as he did this time. Will discuss more with him in AM. * Huseyin Bauman MD - 01/06/2014 2:45 AM EDT Cardiology Admission History and Physical Patient Name: Shahnaz Santiago Service: [address] Responsible Attending: Huseyin Bauman MD, MD PCP: JENNIFER HARO MD PCP phone #: [phone] ID/Chief Complaint: 63 yo man with ASCVD [...] a chronic, has beenaffecting him 20 years, lyotvjdhv-wv-pesrnjgnmc, sternally located discomfort that is constant and [...] change from his baseline he went to [facility] ED for evaluation.There he was found to be tachycardic in the 160s, BP 108/64 and sating 96% on room air. An EKG revealed a monomorphic tachycardia. He was given versed 4mg, cardiovert with 120J biphasic. The patient's repeat EKG showed sinus rhythm with a 1st degree AV block IA of 214ms, as well as new T-wave inversions and sub 1mm ST depressions in V3-V6. His troponin was an indeterminate value 0.13 (0.06-0.59 =indeterminate). The patient was then transferred [place] [facility]. , OSH labs prior to transfer: 15.2 20.6 H/H 241 45.3 137 98 33 Glc Ca 9.8 4.0 23.5 2.1 260 Mg 1.7 Phos - Baseline Cr 1.0 Troponin 18 9PM (0.0-0.06) - 0.13 CK:-non Review of [...] (arteriosclerotic cardiovascular disease) ?? Heart catheterization in [facility] in 2007 with placement of a stent in an unspecified vessel ?? Repeat heart catheterization in 2008 with placement of stents to both the LAD and circumflex ?? Followup heart catheterization in 2008 showing stable results in both vessels ?? Her current chest discomfort in a somewhat atypical pattern beginning fall ?? Nuclear stress test at [facility] in [place], [place] May 02, 2013 during which he developed left shoulder and arm discomfort during submaximal exercise on the treadmill and after which he was converted to a pharmacologic test; nuclear imaging showed ejection fraction of 45% with a partially reversible inferior defect ?? Cath [facility] [place]: [...] Cap Take by mouth daily. Generic drug: [place]-3 Fatty Acids Refills: 0 glipiZIDE 5 mg [...] by mouth daily. Generic drug: lactobac cmb #2-arm-vcffgmwafp Refills: 0 rosuvastatin 20 mg Tab Commonly [...] ischemia Kalyan Babb, PGY-2 Team Pager # [phone] Cardiology Attending Addendum I have interviewed and [...] 01/12/2014 11:50 AM EDTAssociated Order(s): SCAN DOC: MANAGER PERSONNEL SELECTION documented in this encounter Miscellaneous Notes * Miscellaneous - Provider, Scanning - 01/12/2014 11:49 AM EDT * Miscellaneous - Provider, Scanning - 01/12/2014 11:45 AM EDT * Discharge Summary - Huseyin Bauman MD - 01/11/2014 12:45 PM EDT Cardiology - Discharge Summary Patient Name: Shahnaz Santiago Patient Age: 63 y.o. Birthdate: 1950 Admit date: 01/06/2014 Discharge date and time: 01/11/2014 Attending Physician: Huseyin Bauman MD Follow-up Recommendations for Providers: ?? [...] a chronic, has beenaffecting him 20 years, wbuwxjvzu-dv-bbfaqzgfol, sternally located discomfort that is constant and [...] change from his baseline he went to [facility] ED for evaluation.There he was found to be tachycardic in the 160s, BP 108/64 and sating 96% on room air. An EKG revealed a monomorphic tachycardia. He was given versed 4mg, cardiovert with 120J biphasic. The patient's repeat EKG showed sinus rhythm with a 1st degree AV block IA of 214ms, as well as new T-wave inversions and sub 1mm ST depressions in V3-V6. His troponin was an indeterminate value 0.13 (0.06-0.59 =indeterminate). The patient was then transferred to [facility] Hospital [...] for an in-stent thrombosis (04/2013), an ischemic dinkey driver of his arrhythmia was a strong [...] smoking (1 pack/day) after moving back to [place]. A consult to smoking cessation was placed and he was strongly encouraged to quit smoking. Nicotine replacement was offered on discharge. Important Studies and Lab Data: Recent Labs Basename 01/11/14 0356 01/10/14 0421 01/09/14 0432 01/08/14 0703 01/07/14 0340 WBC 10.8* 8.8 8.0 7.5 8.9 HGB 12.9* 13.6* 14.5 11.8* 11.4* PLATELET 171 177 184 143* 137* Recent Labs Basename 01/11/14 0356 01/10/14 0421 01/09/14 0432 01/08/14 0703 01/07/14 1000 01/07/14 0340 NA 139 139 141 140 -- 140 K 4.0 4.3 4.2 3.9 4.3 -- CL 103 102 102 103 -- 103 CO2 22 25 24 24 -- 26 BUN 18 17 15 16 -- 20 CREATININE 0.83 0.91 0.87 0.74* -- 0.81 GLUCOSE 137 161 124 133 -- 93 Recent Labs Basename 01/11/14 0356 01/10/14 0421 [...] (CL) of 1070 ms were as follows: IA: 230 ms HV: 40 ms (?) QRS: 110 ms (no manifest pre-excitation) QT: 450 ms 2) Atrial overdrive pacing (10 mA @ 2 ms) was accomplished from the low right atrium, and the atrioventricular (AV) Wenckebach block CL was observed at 500 ms. There was no pre-excitation or conduction aberrancy identified. The mbfmzugn-su-UUB < QRS-QRS just prior to the observed [...] Cap Take by mouth daily. Generic drug: [place]-3 Fatty Acids Refills: 0 glipiZIDE 5 mg [...] by mouth daily. Generic drug: lactobac cmb #7-eum-dihxctcxgy Refills: 0 rosuvastatin 20 mg Tab Commonly known as: CRESTOR Take 20 mg by mouth daily. 20 mg Refills: 0 STOPPED Medications lisinopril-hydrochlorothiazide 10-12.5 mg Tab Commonly known as: PRINZIDE;ZESTORETIC nadolol 20 mg Tab Commonly known as: CORGARD nortriptyline 50 mg Cap Commonly known as: PAMELOR Updated Allergies/ADRs: Allergies Allergen Reactions ??? Tape [...] Center 02/07/2014 8:10 AM Kit Self MD [facility] Follow-Up Appointments Date and Time Provider and Specialty Location Jan 13, 2014 @ 2[facility] [facility]: Huseyin Bauman MD Your Primary Care Provider: JENNIFER HARO MD [phone] For questions regarding this document or issues relating to this hospitalization on the Medical Service, please contact your inpatient physician through the [facility]ty Maker . Issues afterhours and on weekends will be handled by the Hospitalist staff on-call. Future Appointments and Orders Future Appointments: Provider: Department: Dept Phone: Center: 02/07/2014 8:10 AM Kit Self MD Cardiology [phone] [facility] Joint Appt Nurse One Cardiology NAHUN Corrales 4A [phone] [facility] 04/10/2014 9:30 AM Raul Salmeron RN Cardiology [phone] [facility] For questions regarding this document or issues relating to this hospitalization on the Medical Service, please contact your inpatient physician through the [facility] Putty Maker . Issues afterhours and on weekends will be handled by the Speed Runner staff on-call. Signed: HUSEYIN BAUMAN MD * Plan of Care - [...] in the out pt CR program at [facility]. He was admitted with LLOYD and VT. Cardiac cath showed no ischemic etiology of sx. Being considered for ICD. Will refer him back to the [facility] prog at discharge * Miscellaneous - Provider, Scanning - 01/07/2014 2:41 PM EDT * Op Note - José Manuel Cole MD - 01/06/2014 5:34 PM EDT Electrophysiology Study Putty Maker: José Manuel Cole MD Indication: Ventricular tachycardia [...] (CL) of 1070 ms were as follows: IA: 230 ms HV: 40 ms (?) QRS: 110 ms (no manifest pre-excitation) QT: 450 ms 2) Atrial overdrive pacing (10 mA @ 2 ms) was accomplished from the low right atrium, and the atrioventricular (AV) Wenckebach block CL was observed at 500 ms. There was no pre-excitation or conduction aberrancy identified. The uyluhxek-ci-QNA < QRS-QRS just prior to the observed [...] AM EDT Hospital Encounter [place] [address] Arrived documented as of this encounter Procedures Procedure Name Priority Date/Time Associated Diagnosis Comments MANAGER PERSONNEL SELECTION SCAN 01/12/2014 11:50 AM EDT POCT GLUCOSE [...] 5:20 PM EDT CARDIAC CATHETERIZATION Routine 01/07/20 14 3:58 PM EDT CARDIAC ENZYMES ([facility]) Routine 01/06/2014 12:40 PM EDT POCT GLUCOSE Routine 01/06/2014 12:15 PM EDT CARDIAC ENZYMES ([facility] Routine [...] 01/07/20 14 2:50 AM EDT CARDIAC ENZYMES ([facility] Routine 01/06/2014 2:50 AM EDT CBC (WITH DIFF) Routine 01/06/2014 2:50 AM EDT MAGNESIUM Routine 01/06/2014 2:50 AM EDT LIPID PANEL (REFLEX DIRECT LDL) Routine 01/06/2014 2:50 AM EDT BASIC METABOLIC PANEL (NON-FASTING) Routine 01/06/2014 2:50 AM EDT EKG 12-LEAD Routine 01/06/2014 2:01 AM EDT documented in this encounter Results * SCAN DOC: MANAGER PERSONNEL SELECTION (01/12/2014 11:50 AM EDT) Anatomical Region Laterality Modality Other Narrative 01/12/2014 11:53 AM EDT Procedure Note Provider, Scanning - 01/12/2014 11:50 AM EDT Scanning Provider MEDIA MGR SCAN EXT O RDR/RSLT * (ABNORMAL) POCT Glucose (01/11/2014 11:55 AM EDT) POC Glucose 285(H) 60 - 199 mg/dL MONICA KATHRYN Comment: Supplemental ranges: <140 mg/dL before meals <180 mg/dL all other times of the day Blood specimen (specimen) 01/11/2014 11:55 AM EDT 01/11/2014 11:55 AM EDT Huseyin Bauman MD POINT OF CARE TEST O RDERABLES [facility] * XR chest routine PA & [...] 8:03 AM EDT 01/11/2014 8:03 AM EDT Huseyin Bauman MD POINT OF CARE TEST O [...] Narrative Resulting Agency Comment Spec In Lab Huseyin Bauman MD HEMATOLOGY ORDERABLE S [facility]EN[facility] * (ABNORMAL) Hemogram (01/11/2014 3:56 AM [...] Narrative Resulting Agency Comment Spec In Lab Huseyin Bauman MD [facility]EMATOLOGY ORDERABLE S [facility] * Magnesium (01/11/2014 3:56 AM EDT) Magnesium 0.70 0.69 - 1.07 mmol/L CERNER MILLENNIUM Blood specimen (specimen) 01/11/2014 3:56 AM EDT 01/11/2014 4:21 AM EDT Narrative Resulting Agency Comment Spec In Lab Huseyin Bauman MD CHEMISTRY ORDERABLES [facility]ZI[facility] * Basic Metabolic Panel (non-fasting) (01/11/2014 3:56 AM EDT) Glucose Lvl 137 60 - 199 mg/dL CERNER MILLENNIUM Comment:Diabetes: >=200 mg/d L plus symptoms BUN 18 10 - 20 mg/dL CERNER MILLENNIUM Creatinine 0.83 0.80 - 1.50 mg/dL CERNER MILLENNIUM Comment: Please note that the pediatric reference intervals supplied above were not validated at [facility]. Results [...] the following links into your internet browser. [email or web address] Blood specimen (specimen) 01/11/2014 3:56 AM EDT 01/11/2014 4:21 AM EDT Narrative Resulting Agency Comment Spec In Lab Huseyin Bauman MD CHEMISTRY ORDERABLES Performing Organization Address [facility] de Phone Number MONICA PERALTA * POCT Glucose (01/11/2014 3:46 AM EDT) POC Glucose 137 60 - 199 mg/dL [facility] Comment: Supplemental ranges: <140 mg/dL before meals <180 mg/dL all other times of the day Blood specimen (specimen) 01/11/2014 3:46 AM EDT 01/11/2014 3:46 AM EDT Huseyin Bauman MD POINT OF CARE TEST O RDERABLES Performing Organization Address [facility] de Phone Number [facility] * POCT Glucose (01/10/2014 11:57 PM EDT) POC Glucose 173 60 - 199 mg/dL [facility] Comment: Supplemental ranges: <140 mg/dL before meals <180 mg/dL all other times of the day Blood specimen (specimen) 01/10/2014 11:57 PM EDT 01/10/2014 11:57 PM EDT Huseyin Bauman MD POINT OF CARE TEST O RDERABLES Performing Organization Address [facility] de Phone Number MONICA PERALTA * (ABNORMAL) POCT Glucose (01/10/2014 8:31 PM EDT) POC Glucose 201(H) 60 - 199 mg/dL [facility] Comment: Supplemental ranges: <140 mg/dL before meals <180 mg/dL all other times of the day Blood specimen (specimen) 01/10/2014 8:31 PM EDT 01/10/2014 8:31 PM EDT Huseyin Bauman MD POINT OF CARE TEST O RDERABLES Performing Organization Address City/[facility] Co de Phone Number [facility] * POCT Glucose (01/10/2014 6:04 PM EDT) POC Glucose 164 60 - 199 mg/dL [facility] Comment: Supplemental ranges: <140 mg/dL before meals <180 mg/dL all other times of the day Blood specimen (specimen) 01/10/2014 6:04 PM EDT 01/10/2014 6:04 PM EDT Huseyin Bauman MD POINT OF CARE TEST O ASIMLOREE Performing Organization Address [facility] de Phone Number [facility] * Electrophysiology Procedure (01/10/2014 5:19 PM [...] with O-silk. Final Parameters: Ventricular electrode: ?? Platial Ballinger Model# 0292 Serial# [id number] ??Bipolar, steroid-tipped, active-fixation, ??single coil DF-4 lead ??Access: ? Left axillary vein ??Location: ?RV apex ??R wave, ICD: ? 9.6 mV ??Pacing threshold, ICD: ? 0.6 V at 0.5 ms ??Impedance, ICD: ? 913 ohms (74 ohms for shock vector) ??Pace the diaphragm at 10 V: ??No Atrial electrode: ?? Platial Dextrus Model# 4136 Serial# [id number] ??Bipolar, steroid-tipped, active-fixation IS-1 lead ??Access: ? Left axillary vein ??Location ? Right atrial appendage ??P wave, ICD: ? 4.3 mV ??Pacing threshold, pacemaker: ??1.7 V at 0.5 ms ??Impedance, pacemaker: ??538 ohms ??Pace the diaphragm at 10 V: ??No Pulse generator: ? Platial Incepta Model# E162 Serial# [id number] DDDR ICD ??Location: ?Subcutaneous Defibrillation testing was [...] major muscle withO-silk. Final Parameters: Ventricular electrode: Platial Ballinger Model# 0292 Serial# [id number] Bipolar, steroid-tipped, active-fixation, single coil DF-4 lead Access: Left axillary vein Location: RV apex R wave, ICD: 9.6 mV Pacing threshold, ICD: 0.6 V at 0.5 ms Impedance, ICD: 913 ohms (74 ohms for shock vector) Pace the diaphragm at 10 V: No Atrial electrode: [employer] Dextrus Model# 4136 Serial# [id number] Bipolar, steroid-tipped, active-fixation IS-1 lead Access: Left axillary vein Location Right atrial appendage P wave, ICD: 4.3 mV Pacing threshold, pacemaker: 1.7 V at 0.5 ms Impedance, pacemaker: 538 ohms Pace the diaphragm at 10 V: No Pulse generator: [employer] Incepta Model# E162 Serial# [id number] DDDR ICD Location: Subcutaneous Defibrillation testing was [...] (ABNORMAL) POCT Glucose (01/10/2014 11:39 AM EDT) POC Glucose 218(H) 60 - 199 mg/dL [facility] Comment: Supplemental ranges: <140 mg/dL before meals <180 mg/dL all other times of the day Blood specimen (specimen) 01/10/2014 11:39 AM EDT 01/10/2014 11:39 AM EDT Huseyin Bauman MD POINT OF CARE TEST O RDERABLES Performing Organization Address [facility] de Phone Number [facility] BEN[facility]ZI[facility] * (ABNORMAL) POCT Glucose (01/10/2014 7:36 AM EDT) POC Glucose 242(H) 60 - 199 mg/dL [facility] ROSEENNIUM Comment: Supplemental ranges: <140 mg/dL before meals <180 mg/dL all other times of the day Blood specimen (specimen) 01/10/2014 7:36 AM EDT 01/10/2014 7:36 AM EDT Huseyin Bauman MD POINT OF CARE TEST O RDERALOREE Performing Organization Address [facility] de Phone Number [facility] BENITEZIUM * POCT Glucose (01/10/2014 4:25 AM EDT) POC Glucose 153 60 - 199 mg/dL [facility] Comment: Supplemental ranges: <140 mg/dL before meals <180 mg/dL all other times of the day Blood specimen (specimen) 01/10/2014 4:25 AM EDT 01/10/2014 4:25 AM EDT Huseyin Bauman MD POINT OF CARE TEST O RDERABLES Performing Organization Address [facility] de Phone Number MONICA PERALTA * (ABNORMAL) [...] Narrative Resulting Agency Comment Spec In Lab Huseyin Bauman MD HEMATOLOGY ORDERABLE S CERNER MILLENNIUM [...] Narrative Resulting Agency Comment Spec In Lab Huseyin Bauman MD HEMATOLOGY ORDERABLE S CERNER MILLENNIUM * (ABNORMAL) Magnesium (01/10/2014 4:21 AM EDT) Magnesium 0.67(L) 0.69 - 1.07 mmol/L CERNER MILLENNIUM Blood specimen (specimen) 01/10/2014 4:21 AM EDT 01/10/2014 4:36 AM EDT Narrative Resulting Agency Comment Spec In Lab Huseyin Bauman MD CHEMISTRY ORDERABLES Performing Organization Address [facility] Co de Phone Number CERNER MILLENNIUM * Basic Metabolic Panel (non-fasting) (01/10/2014 4:21 AM EDT) Glucose Lvl 161 60 - 199 mg/dL [facility]ERN[facility] MILLENNIUM Comment:Diabetes: >=200 mg/d L plus symptoms BUN 17 10 - 20 mg/dL CERNER MILLENNIUM Creatinine 0.91 0.80 - 1.50 mg/dL CERNER MILLENNIUM Comment: Please note that the pediatric reference intervals supplied above [place] [facility] [place] Results [...] MILLENNIUM Calcium 9.7 8.5 - 10.5 mg/dL [facility] Estimated GFR >60 >=60 [facility] Comment: This estimated GFR (eGFR) value was [...] the following links into your internet browser. [email or web address] Blood specimen (specimen) 01/10/2014 4:21 AM EDT 01/10/2014 4:36 AM EDT Narrative Resulting Agency Comment Spec In Lab Huseyin Bauman MD CHEMISTRY ORDERABLES Performing Organization Address [facility] de Phone Number [facility] * POCT Glucose (01/09/2014 11:25 PM EDT) POC Glucose 164 60 - 199 mg/dL [facility] Comment: Supplemental ranges: <140 mg/dL before meals <180 mg/dL all other times of the day Blood specimen (specimen) 01/09/2014 11:25 PM EDT 01/09/2014 11:25 PM EDT Huseyin Bauman MD POINT OF CARE TEST O RDERABLES Performing Organization Address [facility] Co de Phone Number [facility] * (ABNORMAL) POCT Glucose (01/09/2014 8:03 PM EDT) POC Glucose 204(H) 60 - 199 mg/dL [facility] Comment: Supplemental ranges: <140 mg/dL before meals <180 mg/dL all other times of the day Blood specimen (specimen) 01/09/2014 8:03 PM EDT 01/09/2014 8:03 PM EDT Huseyin Bauman MD POINT OF CARE TEST O RDERABLES Performing Organization Address [facility] Co de Phone Number [facility] * (ABNORMAL) POCT Glucose (01/09/2014 4:34 PM EDT) POC Glucose 231(H) 60 - 199 mg/dL [facility] Comment: Supplemental ranges: <140 mg/dL before meals <180 mg/dL all other times of the day Blood specimen (specimen) 01/09/2014 4:34 PM EDT 01/09/2014 4:34 PM EDT Huseyni Bauman MD POINT OF CARE TEST O RDERABLES Performing Organization Address [facility] de Phone Number [facility] * (ABNORMAL) POCT Glucose (01/09/2014 11:44 AM EDT) POC Glucose 280(H) 60 - 199 mg/dL [facility] Comment: Supplemental ranges: <140 mg/dL before meals <180 mg/dL all other times of the day Blood specimen (specimen) 01/09/2014 11:44 AM EDT 01/09/2014 11:44 AM EDT Huseyin Bauman MD POINT OF CARE TEST O RDERABLES Performing Organization Address [facility] de Phone Number [facility] * POCT Glucose (01/09/2014 7:51 AM EDT) POC Glucose 148 60 - 199 mg/dL [facility] Comment: Supplemental ranges: <140 mg/dL before meals <180 mg/dL all other times of the day Blood specimen (specimen) 01/09/2014 7:51 AM EDT 01/09/2014 7:51 AM EDT Huseyin Bauman MD POINT OF CARE TEST O RDERABLES Performing Organization Address [facility] Co de Phone Number [facility] * Basic Metabolic Panel (non-fasting) (01/09/2014 4:32 AM EDT) Glucose Lvl 124 60 - 199 mg/dL [facility]ERNER MILLENNIUM Comment:Diabetes: >=200 mg/d L plus symptoms BUN 15 10 - 20 mg/dL CERNER MILLENNIUM Creatinine 0.87 0.80 - 1.50 mg/dL CERNER MILLENNIUM Comment: Please note that the pediatric reference intervals supplied above were [place] [facility] [place] Results [...] the following links into your internet browser. [email or web address] Blood specimen (specimen) 01/09/2014 4:32 AM EDT 01/09/2014 4:38 AM EDT Narrative Resulting Agency Comment Spec In Lab Huseyin Bauman MD CHEMISTRY ORDERABLES [facility] * (ABNORMAL) Differential, Automated (01/09/2014 4:32 AM [...] Narrative Resulting Agency Comment Spec In Lab Huseyin Bauman MD HEMATOLOGY ORDERABLE S [facility] * (ABNORMAL) Hemogram (01/09/2014 4:32 AM EDT) WBC 8.0 4.0 - 10.0 x10(3)/mcL CERNER MILLENNIUM RBC 4.83 4.63 - 6.08 x10(6)/mcL CERNER MILLENNIUM Hemoglobin 14.5 13.7 - 17.5 gm/dL [facility] Comment:Repeated & verified Hematocrit 43.0 40.0 - 51.0 % [facility] MCV 89.0 79.0 - 92.0 fL [facility] MCH 30.0 25.6 - 32.2 pg [facility] MCHC 33.7 32.0 - 36.5 gm/dL [facility] Platelets 184 145 - 370 x10(3)/mcL [facility] RDWSD 47.4(H) 35.0 - 46.0 fL [facility] RDWCV 14.8(H) 10.9 - 14.4 % [facility] MPV 10.3 9.0 - 12.0 fL [facility] Blood specimen (specimen) 01/09/2014 4:32 AM EDT 01/09/2014 4:38 AM EDT Narrative Resulting Agency Comment Spec In Lab Huseyin Bauman MD HEMATOLOGY ORDERABLE S [facility] * Magnesium (01/09/2014 4:32 AM EDT) Magnesium 0.76 0.69 - 1.07 mmol/L [facility] Blood specimen (specimen) 01/09/2014 4:32 AM EDT 01/09/2014 4:38 AM EDT Narrative Resulting Agency Comment Spec In Lab Huseyin Bauman MD CHEMISTRY ORDERABLES [facility] * POCT Glucose (01/09/2014 4:19 AM EDT) POC Glucose 114 60 - 199 mg/dL [facility] Comment: Supplemental ranges: <140 mg/dL before meals <180 mg/dL all other times of the day Blood specimen (specimen) 01/09/2014 4:19 AM EDT 01/09/2014 4:19 AM EDT Huseyin Bauman MD POINT OF CARE TEST O RDERABLES Performing Organization Address City/[facility] Co de Phone Number [facility] * POCT Glucose (01/09/2014 1:41 AM EDT) POC Glucose 155 60 - 199 mg/dL [facility] Comment: Supplemental ranges: <140 mg/dL before meals <180 mg/dL all other times of the day Blood specimen (specimen) 01/09/2014 1:41 AM EDT 01/09/2014 1:41 AM EDT Huseyin Bauman MD POINT OF CARE TEST O RDERABLES Performing Organization Address [facility] Co de Phone Number [facility] * (ABNORMAL) POCT Glucose (01/08/2014 11:19 PM EDT) POC Glucose 252(H) 60 - 199 mg/dL [facility] Comment: Supplemental ranges: <140 mg/dL before meals <180 mg/dL all other times of the day Blood specimen (specimen) 01/08/2014 11:19 PM EDT 01/08/2014 11:19 PM EDT Huseyin Bauman MD POINT OF CARE TEST O RDERALOREE Performing Organization Address [facility] de Phone Number [facility] * (ABNORMAL) POCT Glucose (01/08/2014 7:50 PM EDT) POC Glucose 205(H) 60 - 199 mg/dL [facility] Comment: Supplemental ranges: <140 mg/dL before meals <180 mg/dL all other times of the day Blood specimen (specimen) 01/08/2014 7:50 PM EDT 01/08/2014 7:50 PM EDT Huseyin Bauman MD POINT OF CARE TEST O RDERABLES Performing Organization Address [facility] Co de Phone Number [facility] * POCT Glucose (01/08/2014 5:17 PM EDT) POC Glucose 194 60 - 199 mg/dL CERNER MILLENNIUM Comment: Supplemental ranges: <140 mg/dL before meals <180 mg/dL all other times of the day Blood specimen (specimen) 01/08/2014 5:17 PM EDT 01/08/2014 5:17 PM EDT Huseyin Bauman MD POINT OF CARE TEST O RDERABLES Performing Organization Address [facility] Co de Phone Number [facility] * (ABNORMAL) POCT Glucose (01/08/2014 2:21 PM EDT) POC Glucose 230(H) 60 - 199 mg/dL [facility] Comment: Supplemental ranges: <140 mg/dL before meals <180 mg/dL all other times of the day Blood specimen (specimen) 01/08/2014 2:21 PM EDT 01/08/2014 2:21 PM EDT Huseyin Bauman MD POINT OF CARE TEST O CARLOSERALOREE Performing Organization Address [facility] Co de Phone Number STACYDELMAR BENITEZIUM * (ABNORMAL) POCT Glucose (01/08/2014 12:04 PM EDT) POC Glucose 240(H) 60 - 199 mg/dL [facility] Comment: Supplemental ranges: <140 mg/dL before meals <180 mg/dL all other times of the day Blood specimen (specimen) 01/08/2014 12:04 PM EDT 01/08/2014 12:04 PM EDT Huseyin Bauman MD POINT OF CARE TEST O RDERALOREE Performing Organization Address [facility] Co de Phone Number [facility] BENITEZIUM * POCT Glucose (01/08/2014 7:56 AM EDT) POC Glucose 125 60 - 199 mg/dL [facility] Comment: Supplemental ranges: <140 mg/dL before meals <180 mg/dL all other times of the day Blood specimen (specimen) 01/08/2014 7:56 AM EDT 01/08/2014 7:56 AM EDT Huseyin Bauman MD POINT OF CARE TEST O RDERABLES [facility] * (ABNORMAL) Magnesium (01/08/2014 7:03 AM EDT) Magnesium 0.58(L) 0.69 - 1.07 mmol/L CERNER MILLENNIUM Blood specimen (specimen) 01/08/2014 7:03 AM EDT 01/08/2014 7:09 AM EDT Narrative Resulting Agency Comment Spec In Lab Huseyin Bauman MD CHEMISTRY ORDERABLES Performing Organization Address City/[facility] Co de Phone Number MON[facility] ROSEENNIUM * Differential, Automated (01/08/2014 7:03 AM [...] Narrative Resulting Agency Comment Spec In Lab Huseyin Bauman MD HEMATOLOGY ORDERABLE S CERDELMAR ROSEENNIUM * (ABNORMAL) Hemogram (01/08/2014 7:03 [...] Narrative Resulting Agency Comment Spec In Lab Huseyin Bauman MD HEMATOLOGY ORDERABLE S Performing Organization Address City/[facility]/ZIP Co de Phone Number [facility] BENITEZIUM * (ABNORMAL) Basic Metabolic Panel (non-fasting) (01/08/2014 7:03 AM EDT) Glucose Lvl 133 60 - 199 mg/dL CERNER MILLENNIUM Comment:Diabetes: >=200 mg/d L plus symptoms BUN 16 10 - 20 mg/dL CERNER MILLENNIUM Creatinine 0.74(L) 0.80 - 1.50 mg/dL CERNER MILLENNIUM Comment: Please note that the pediatric reference intervals supplied above were [place] [facility] [place] Results [...] the following links into your internet browser. [email or web address] Blood specimen (specimen) 01/08/2014 7:03 AM EDT 01/08/2014 7:08 AM EDT Narrative Resulting Agency Comment Spec In Lab Huseyin Bauman MD CHEMISTRY ORDERABLES [facility] * (ABNORMAL) POCT Glucose (01/08/2014 3:55 AM EDT) POC Glucose 219(H) 60 - 199 mg/dL [facility] Comment: Supplemental ranges: <140 mg/dL before meals <180 mg/dL all other times of the day Blood specimen (specimen) 01/08/2014 3:55 AM EDT 01/08/2014 3:55 AM EDT Huseyin Bauman MD POINT OF CARE TEST O RDERABLES Performing Organization Address [facility] de Phone Number [facility] * POCT Glucose (01/07/2014 11:51 PM EDT) POC Glucose 153 60 - 199 mg/dL [facility] Comment: Supplemental ranges: <140 mg/dL before meals <180 mg/dL all other times of the day Blood specimen (specimen) 01/07/2014 11:51 PM EDT 01/07/2014 11:51 PM EDT Huseyin Bauman MD POINT OF CARE TEST O SAMPSON Performing Organization Address [facility] de Phone Number [facility] * POCT Glucose (01/07/2014 9:32 PM EDT) POC Glucose 190 60 - 199 mg/dL [facility] Comment: Supplemental ranges: <140 mg/dL before meals <180 mg/dL all other times of the day Blood specimen (specimen) 01/07/2014 9:32 PM EDT 01/07/2014 9:32 PM EDT Huseyin Bauman MD POINT OF CARE TEST O RDERALOREE Performing Organization Address [facility] de Phone Number [facility] * (ABNORMAL) POCT Glucose (01/07/2014 7:36 PM EDT) POC Glucose 223(H) 60 - 199 mg/dL [facility] Comment: Supplemental ranges: <140 mg/dL before meals <180 mg/dL all other times of the day Blood specimen (specimen) 01/07/2014 7:36 PM EDT 01/07/2014 7:36 PM EDT Huseyin Bauman MD POINT OF CARE TEST O RDERABLES Performing Organization Address [facility] de Phone Number [facility] BENITEZIUM * POCT Glucose (01/07/2014 5:32 PM EDT) POC Glucose 180 60 - 199 mg/dL [facility] Comment: Supplemental ranges: <140 mg/dL before meals <180 mg/dL all other times of the day Blood specimen (specimen) 01/07/2014 5:32 PM EDT 01/07/2014 5:32 PM EDT Huseyin Bauman MD POINT OF CARE TEST O RDERABLES Performing Organization Address [facility] de Phone Number MONICA PERALTA * (ABNORMAL) POCT Glucose (01/07/2014 1:24 PM EDT) POC Glucose 240(H) 60 - 199 mg/dL [facility] Comment: Supplemental ranges: <140 mg/dL before meals <180 mg/dL all other times of the day Blood specimen (specimen) 01/07/2014 1:24 PM EDT 01/07/2014 1:24 PM EDT Huseyin Bauman MD POINT OF CARE TEST O RDERABLES Performing Organization Address [facility] de Phone Number [facility] PERALTA * (ABNORMAL) Magnesium (01/07/2014 10:00 AM EDT) Magnesium 0.66(L) 0.69 - 1.07 mmol/L [facility] Blood specimen (specimen) 01/07/2014 10:00 AM EDT 01/07/2014 10:17 AM EDT Narrative Resulting Agency Comment Spec In Lab Huseyin Bauman MD CHEMISTRY ORDERABLES Performing Organization Address [facility] Co de Phone Number MONICA PERALTA * Potassium (01/07/2014 10:00 AM EDT) Potassium 4.3 3.5 - 5.0 mmol/L CERNER [...] Narrative Resulting Agency Comment Spec In Lab Huseyin Bauman MD CHEMISTRY ORDERABLES [facility] * POCT Glucose (01/07/2014 9:23 AM EDT) Pathologist [facility] POC Glucose 178 60 - 199 mg/dL CERNER MILLENNIUM Comment: Supplemental ranges: <140 mg/dL before meals <180 mg/dL all other times of the day Blood specimen (specimen) 01/07/2014 9:23 AM EDT 01/07/2014 9:23 AM EDT Huseyin Bauman MD POINT OF CARE TEST O RDERABLES [facility]ZI[facility] * Differential, Automated (01/07/2014 3:40 AM EDT) Pathologist [facility] Neutrophils % 60.4 34.0 - 71.0 % [...] Narrative Resulting Agency Comment Spec In Lab Huseyin Bauman MD HEMATOLOGY ORDERABLE S CERNER MILLENNIUM * (ABNORMAL) Hemogram (01/07/2014 3:40 AM EDT) [...] Narrative Resulting Agency Comment Spec In Lab Huseyin Bauman MD HEMATOLOGY ORDERABLE S Performing Organization Address City/[facility]/ZIP Co de Phone Number CERNER MILLENNIUM * (ABNORMAL) Magnesium (01/07/2014 3:40 AM EDT) Magnesium 0.61(L) 0.69 - 1.07 mmol/L CERNER MILLENNIUM Blood specimen (specimen) 01/07/2014 3:40 AM EDT 01/07/2014 3:43 AM EDT Narrative Resulting Agency Comment Spec In Lab Huseyin Bauman MD CHEMISTRY ORDERABLES Performing Organization Address [facility] de Phone Number CERNER MILLENNIUM * (ABNORMAL) Basic Metabolic Panel (non-fasting) (01/07/2014 3:40 AM EDT) Glucose Lvl 93 60 - 199 mg/dL CERNER MILLENNIUM Comment:Diabetes: >=200 mg/d L plus symptoms BUN 20 10 - 20 mg/dL CERNER MILLENNIUM Creatinine 0.81 0.80 - 1.50 mg/dL CERNER MILLENNIUM Comment: Please note that the pediatric reference intervals supplied above were [place] [facility] [place] Results [...] the following links into your internet browser. [email or web address] Blood specimen (specimen) 01/07/2014 3:40 AM EDT 01/07/2014 3:43 AM EDT Narrative Resulting Agency Comment Spec In Lab Huseyin Bauman MD CHEMISTRY ORDERABLES Performing Organization Address [facility] Phone Number [facility] * POCT Glucose (01/07/2014 3:39 AM EDT) POC Glucose 95 60 - 199 mg/dL [facility] Comment: Supplemental ranges: <140 mg/dL before meals <180 mg/dL all other times of the day Blood specimen (specimen) 01/07/2014 3:39 AM EDT 01/07/2014 3:39 AM EDT Huseyin Bauman MD POINT OF CARE TEST O RDERABLES Performing Organization Address [facility] de Phone Number [facility] * POCT Glucose (01/06/2014 11:40 PM EDT) POC Glucose 130 60 - 199 mg/dL [facility] Comment: Supplemental ranges: <140 mg/dL before meals <180 mg/dL all other times of the day Blood specimen (specimen) 01/06/2014 11:40 PM EDT 01/06/2014 11:40 PM EDT Huseyin Bauman MD POINT OF CARE TEST O RDERABLES Performing Organization Address [facility] de Phone Number [facility] * POCT Glucose (01/06/2014 9:23 PM EDT) POC Glucose 173 60 - 199 mg/dL [facility] Comment: Supplemental ranges: <140 mg/dL before meals <180 mg/dL all other times of the day Blood specimen (specimen) 01/06/2014 9:23 PM EDT 01/06/2014 9:23 PM EDT Huseyin Bauman MD POINT OF CARE TEST O RDERALOREE Performing Organization Address [facility] de Phone Number [facility] * POCT Glucose (01/06/2014 6:42 PM EDT) POC Glucose 125 60 - 199 mg/dL [facility] Comment: Supplemental ranges: <140 mg/dL before meals <180 mg/dL all other times of the day Blood specimen (specimen) 01/06/2014 6:42 PM EDT 01/06/2014 6:42 PM EDT Huseyin Bauman MD POINT OF CARE TEST O SAMPSON Performing Organization Address [facility] Phone Number [facility] * Electrophysiology Procedure (01/06/2014 5:20 PM EDT) [...] AM EDT ?[facility] ? Cardiac Catheterization/Intervention Report ? Patient Name: Shahnaz Santiago ? Procedure Date: 01/06/2014 ? A #: [id number] ? Primary Physician: Britton, Jaron W. ? Case #: [id number] ? File Name: [id number] ? Catheterization Order Number: [id number] ? [facility] ? Final Report [place], [place] ? Patient Name: ? Shahnaz Kimpatricialuis ? ID#: ?[id number] ? : ?1950 ? Procedure Date: ? January 06, 2014 ? Case #: ? 14- [id number] ? Room: ? 1 ? Case Physician: ? Jaron Jarquin M.D. ? Start: ?14:40 ?Fellow: ? Jennifer Argueta, ?Admission: ??01/06/2014 ?M.D. ? Referring Physician: ??Jennifer Ajamie, M.D. ? Procedures: ?* Coronary Angiography ?* Left Heart Catheterization ?* Coronary Flow [place] [facility] ?* Coronary Instantaneous Wave-Free Ratio ?* [...] IFR-coronary and ?vascular closure device. ? Jaron W. Britton, M.D. ? Electronically Signed by: Jaron Valdezs, M.D. ? Report Finalized: 01/06/2014 ??16:11 ? Procedure Note Jaron Jarquin II, MD - 01/09/2014 [facility] Cardiac Catheterization/Intervention Report Patient Name: Shahnaz Santiago Procedure Date: 01/06/2014 A #: [id number] Primary Physician: Jaron Jarquin Case #: File Name: [id number] Catheterization Order Number: [id number] [facility] FinalReport [place], [place] Patient Name: Shahnaz Santiago ID#:[id number] :1950 Procedure Date: January 06, 2014 Case #: Room: 1 Case Physician: Jaron Jarquin M.D. Start: 14:40 Fellow: Jennifer Argueta, Admission:01/06/2014 Adriana Referring Physician: Jennifer Haro M.D. Procedures: * Coronary Angiography * Left Heart Catheterization * Coronary Flow [place] [facility] * Coronary Instantaneous Wave-Free Ratio * [...] Jaron Jarquin M.D. Report Finalized: 01/06/2014 16:11 Huseyin Bauman MD CARDIAC CATH ORDERAB LES * (ABNORMAL) Cardiac Enzymes (01/06/2014 12:40 PM EDT) Troponin-T 0.10(H) <=0.03 ng/mL [facility] Comment: 0.03 ng/mL: Represents the 99th percentile upper reference limit for normals. >0.03 ng/mL: Elevated cardiac troponin T level indicative of myocardial damage. Diagnosis of acute, evolving or recent IL requires a typical rise and gradual fall [...] consensus document of the Joint Society of Cardiology/[place] College [employer]iology Committee for the redefinition of myocardial infarction. ??Journal of the [place] College [employer]iology 2000; 36: 959-969] CK, Total 127 0 - 200 unit/L [facility] Blood specimen (specimen) 01/06/2014 12:40 PM EDT 01/06/2014 12:52 PM EDT Narrative Resulting Agency Comment Spec In Lab Huseyin Bauman MD CHEMISTRY ORDERABLES Performing Organization Address [facility]/ZIP Co de Phone Number [facility] * POCT Glucose (01/06/2014 12:15 PM EDT) POC Glucose 165 60 - 199 mg/dL [facility] Comment: Supplemental ranges: <140 mg/dL before meals <180 mg/dL all other times of the day Blood specimen (specimen) 01/06/2014 12:15 PM EDT 01/06/2014 12:15 PM EDT Huseyin Bauman MD POINT OF CARE TEST O RDERABLES Performing Organization Address [facility]/ZIP Co de Phone Number [facility] * Cardiac Enzymes (01/06/2014 11:30 AM EDT) Troponin-T Not Perf <=0.03 ng/mL [facility] Comment: Unable to quantitate due to sample hemolysis. ??Sample redraw suggested. Called Maximiliano, 01/06/14 12:30, blr 0.03 ng/mL: Represents the 99th percentile upper reference limit for normals. >0.03 ng/mL: Elevated cardiac troponin T level indicative of myocardial damage. Diagnosis of acute, evolving or recent IL requires a typical rise and gradual fall [...] consensus document of the Joint Society of Cardiology/[place] [employer] Committee for the redefinition of myocardial infarction. ??Journal of the [place] College of [employer]iology 2000; 36: 959-969] CK, Total 132 0 - 200 unit/L [facility] Blood specimen (specimen) 01/06/2014 11:30 AM EDT 01/06/2014 11:45 AM EDT Narrative Resulting Agency Comment Spec In Lab Huseyin Bauman MD CHEMISTRY ORDERABLES Performing Organization Address [facility]/ZIP Co de Phone Number [facility] * (ABNORMAL) APTT (01/06/2014 11:30 AM EDT) PTT 48(H) 25 - 35 sec [facility] Comment: Recommended therapeutic PTT range for full dose unfractionated heparin is 80-114 seconds. Blood specimen (specimen) 01/06/2014 11:30 AM EDT 01/06/2014 11:45 AM EDT Narrative Resulting Agency Comment Spec In Lab Huseyin Bauman MD HEMATOLOGY ORDERABLE S Performing Organization Address [facility]/ZIP Co de Phone Number [facility] * LDL Cholesterol, Direct (01/06/2014 11:30 AM EDT) LDL Chol Direct 13 <=99 mg/dL [facility] Comment: The National Cholesterol Education Program (NCEP) has set the following guidelines for LDL Cholesterol: Reference range: ?? Optimal: ?<100 mg/dL ?? Near Optimal/Above Optimal: ?? 100-129 mg/dL ?? Borderline high: ?130-159 mg/dL ?? High: ? 160-189 mg/dL ?? Very high: ?>qu=125 mg/dL TATI 2001: 285(19):9259-7679 Blood specimen (specimen) 01/06/2014 11:30 AM EDT 01/06/2014 11:45 AM EDT Narrative Resulting Agency Comment Spec In Lab Huseyin Bauman MD CHEMISTRY ORDERABLES [facility] * Echocardiogram Transthoracic(Leb) (01/06/2014 10:29 AM EDT) EF 56 HEART[facility] SYSTEM Anatomical Region Laterality Modality Other 01/06/2014 Narrative 01/06/2014 10:41 AM EDT Procedure: ? Transthoracic Echocardiogram Patient: ? PAMEAL Gordon ? (Age): 1950(63) Med Rec#: ?[id number] ? Sex: ?M ? [place] [place] Ht / Wt: ??185(cm)/92(kg) Pt. Loc: ? CCU ?BSA: ?2.17 Study Date: ?01/06/2014 ? Pt. Type: Inpatient Tape: ? Referring: Huseyin Bauman ([id number]) Referring: BRUCE Box Strapper: Jodie Givens Diagnosis:CPT Code(s): ??Echo Full (68159), ??Spectral Doppler (35456), Color Doppler (70426), Indication(s): ??Tachycardia Rhythm: HR ?BP ?114/63 ?? [...] ? Mid-Inferior ?Normal ? Mid-Inferoseptal ?Normal ? [place]-Septal ? Normal ? [place]-Anterior ? Normal ? [place]-Lateral ?Normal ? [place]-Inferior ? Normal ? [place]-Tip ?Normal ? Chambers ?Value ?Units (Range) ? [...] 01/06/2014 10:41:12 Images reviewed and interpretation verified [facility] Procedure Note Warren Atkinson MD - 01/06/2014 Procedure: Transthoracic Echocardiogram Patient: PAMELA Gordon (Age): 1950(63) Med Rec#: [id number] Sex: M [place] [facility] [place] Ht / Wt: 185(cm)/92(kg) Pt. Loc: CCU BSA: 2.17 Study Date: 01/06/2014 Pt. Type: Inpatient Tape: Referring: Huseyin Bauman ([id number]) Referring: BRUCE Box Strapper: Jodie Givens Diagnosis:CPT Code(s): Echo Full (39899), Spectral Doppler (76129), Color Doppler (09436), Indication(s): Tachycardia Rhythm: HR BP 114/63 SUMMARY: [...] Normal Mid-Posterolateral Normal Mid-Inferior Normal Mid-Inferoseptal Normal [place]-Septal Normal [place]-Anterior Normal [place]-Lateral Normal [place]-Inferior Normal [place]-Tip Normal Chambers Value Units (Range) EF Bi-p [...] 01/06/2014 10:41:12 Images reviewed and interpretation verified [facility] Huseyin Bauman MD ECHO ORDERABLES * EKG 12 Lead (01/06/2014 9:29 AM EDT) Ventricular rate 61 BPM MUSE SYSTEM Atrial Rate 61 BPM MUSE SYSTEM P-R Interval 210 ms MUSE SYSTEM QRS Duration 128 ms MUSE SYSTEM Q-T Interval 450 ms MUSE SYSTEM QTC Calculated (Bezet) 453 ms MUSE SYSTEM Calculated P [place] 36 degrees MUSE SYSTEM Calculated R [place] -51 degrees MUSE SYSTEM Calculated T [place] -62 degrees MUSE SYSTEM INTERPRETATION Sinus rhythm [...] evident in Anterior leads Confirmed by MD RAKAN, ESSIE ([id number]) on 01/06/2014 1:03:43 PM MUSE SYSTEM 01/06/2014 9:29 AM EDT 01/06/2014 1:03 PM EDT Huseyin Bauman MD ECG ORDERABLES Performing Organization Address City/[facility]/ZIP Co de Phone Number MUSE SYSTEM * POCT Glucose (01/06/2014 8:28 AM EDT) POC Glucose 104 60 - 199 mg/dL [facility] Comment: Supplemental ranges: <140 mg/dL before meals <180 mg/dL all other times of the day Blood specimen (specimen) 01/06/2014 8:28 AM EDT 01/06/2014 8:28 AM EDT Huseyin Bauman MD POINT OF CARE TEST O RDERABLES Performing Organization Address [facility] Co de Phone Number [facility] * XR chest routine PA & lateral [...] thoracic spine. Impression Left basilar subsegmental atelectasis. Huseyin Bauman MD IMG DX ORDERABLES * Creatinine, urine, random (01/06/2014 3:06 AM EDT) U Creatinine 167 mg/dL [facility] Urine specimen (specimen) 01/06/2014 3:06 AM EDT 01/06/2014 3:15 AM EDT Narrative Resulting Agency Comment Spec In Lab Huseyin Bauman MD URINE ORDERABLES [facility] * Sodium, urine, random (01/06/2014 3:06 AM EDT) U Sodium 85 mmol/L [facility] Urine specimen (specimen) 01/06/2014 3:06 AM EDT 01/06/2014 3:15 AM EDT Narrative Resulting Agency Comment Spec In Lab Huseyin Bauman MD URINE ORDERABLES [facility]ERSwapseeENNI[facility] * (ABNORMAL) Urinalysis with microscopic (01/06/2014 3:06 [...] [facility] MILLENNI[facility] Leukocytes UA Negative Negative mcL [facility] Appearance UA Hazy(A) Clear [facility] MILLENNIUM Spec [place] UA 1.019 1.002 - 1.030 CERNER MILLENNIUM [...] Narrative Resulting Agency Comment Spec In Lab Huseyin Bauman MD URINE ORDERABLES [facility] * (ABNORMAL) Cardiac Enzymes (01/06/2014 2:50 AM EDT) Troponin-T 0.05(H) <=0.03 ng/mL [facility] Comment: 0.03 ng/mL: Represents the 99th percentile upper reference limit for normals. >0.03 ng/mL: Elevated cardiac troponin T level indicative of myocardial damage. Diagnosis of acute, evolving or recent IL requires a typical rise and gradual fall [...] consensus document of the Joint Society of Cardiology/[place] College of Cardiology Committee for the redefinition of myocardial infarction. ??Journal of the [place] College of Cardiology 2000; 36: 959-969] CK, Total 101 0 - 200 unit/L [facility] Blood specimen (specimen) 01/06/2014 2:50 AM EDT 01/06/2014 2:59 AM EDT Narrative Resulting Agency Comment Spec In Lab Huseyin Bauman MD CHEMISTRY ORDERABLES [facility] * [...] Narrative Resulting Agency Comment Spec In Lab Huseyin Bauman MD HEMATOLOGY ORDERABLE S Performing Organization Address [facility] Co de Phone Number [facility]ERDELMAR MILLENNI[facility] * (ABNORMAL) Hemogram (01/06/2014 2:50 AM [...] Narrative Resulting Agency Comment Spec In Lab Huseyin Bauman MD HEMATOLOGY ORDERABLE S Performing Organization Address [facility]/State/[facility] Co de Phone Number [facility] * (ABNORMAL) Magnesium (01/06/2014 2:50 AM EDT) Magnesium 0.67(L) 0.69 - 1.07 mmol/L [facility] Blood specimen (specimen) 01/06/2014 2:50 AM EDT 01/06/2014 2:58 AM EDT Narrative Resulting Agency Comment Spec In Lab Huseyin Bauman MD CHEMISTRY ORDERABLES [facility] * (ABNORMAL) Lipid panel (fasting) (01/06/2014 2:50 AM EDT) Chol, Total 55 <=199 mg/dL [facility] Comment: Recommendations of the NCEP Adult Treatment Panel for the following risk cutoff thresholds for the [place] population: Desirable: <200 mg/dL Borderline High: 200-239 mg/dL High: > or = 240 mg/dL Triglycerides 148 <=149 mg/dL [facility] Comment: Reference Range: Normal triglycerides: ??<150 mg/dL Borderline high: ??150-199 mg/dL High: ??200-499 mg/dL Very high: ??>yz=884 mg/dL TATI 2001; 285(19):4857-4099 HDL 26(L) >=40 mg/dL [facility] Comment: Reference range: ??Low HDL: ?? < 40 mg/dL ??Normal: ?40-60 mg/dL ??Desirable: > 60 mg/dL TATI 2001; 285(19):2524-7614 LDL Cholesterol -1 <=99 mg/dL [facility] Comment: Reference range: ?? Optimal: ?<100 mg/dL ?? Near Optimal/Above Optimal: ?? 100-129 mg/dL ?? Borderline high: ?130-159 mg/dL ?? High: ? 160-189 mg/dL ?? Very high: ?>du=350 mg/dL TATI 2001: 285(19):7032-8304 Chol/HDL Ratio 2.1 ratio [facility] Comment: A Cholesterol to HDL ratio below 4:1 is desirable. ??Studies suggest that increased CAD risk occurs at ratios above 5 for females and above 6 for men. ? [place] [employer] Association ??(http://www.americanheart.org) ? Yenny Int Med, 1994; 121:641 ? AM J Med, 1998; 105(1A):48S Blood specimen (specimen) 01/06/2014 2:50 AM EDT 01/06/2014 2:58 AM EDT Narrative Resulting Agency Comment Spec In Lab Huseyin Bauman MD CHEMISTRY ORDERABLES [facility] bizsolHEALTHSOU[facility] ARIZONAIUM * (ABNORMAL) Basic Metabolic Panel (non-fasting) (01/06/2014 2:50 AM EDT) Glucose Lvl 107 60 - 199 mg/dL [facility] Comment:Diabetes: >=200 mg/d L plus symptoms BUN 31(H) 10 - 20 mg/dL [facility] Creatinine 1.41 0.80 - 1.50 mg/dL [facility] Comment: Please note that the pediatric reference intervals supplied above were [place] validated [place] [facility] [place] Results [...] the following links into your internet browser. [email or web address] Blood specimen (specimen) 01/06/2014 2:50 AM EDT 01/06/2014 2:58 AM EDT Narrative Resulting Agency Comment Spec In Lab Huseyin Bauman MD CHEMISTRY ORDERABLES Performing Organization Address [facility] Co de Phone Number [facility] * EKG 12 Lead (01/06/2014 2:01 AM EDT) Ventricular rate 69 BPM MUSE SYSTEM Atrial Rate 69 BPM MUSE SYSTEM P-R Interval 212 ms MUSE SYSTEM QRS Duration 126 ms MUSE SYSTEM Q-T Interval 416 ms MUSE SYSTEM QTC Calculated (Bezet) 445 ms MUSE SYSTEM Calculated P [place] 18 degrees MUSE SYSTEM Calculated R [place] -55 degrees MUSE SYSTEM Calculated T [place] -70 degrees MUSE SYSTEM INTERPRETATION Sinus rhythm with 1st degree A-V block Left anterior fascicular block Non-specific intra-ventricula r conduction block T wave abnormality, consider inferior ischemia T wave abnormality, consider anterolateral ischemia Abnormal ECG Confirmed by MD William, Navid ([id number]) on 01/07/2014 4:01:06 PM MUSE SYSTEM 01/06/2014 2:01 AM EDT 01/07/2014 4:01 PM EDT Unknown ECG ORDERABLES Performing Organization Address [facility] Co de Phone Number MUSE SYSTEM documented in this encounter Visit Diagnoses Not on filedocumented in this encounter Active and Recently Administered Medications Times are shown in EDT. Scheduled Medication Order 01/09/2014 01/10/2014 01/11/2014 aspirin EC tablet 81 mg (CANCELED) 81 mg, Oral, DAILY, First dose (after last modification) on Thu01/06/14 at 1245, Until Discontinued, Routine 0832 (Given - Provider: Ervin Fontaine, NAHUN) 0908 (Given - Provider: Loraine Saldivar RN) [...] 0847 (Given - Provider: Ervin Fontaine RN) insulin aspart (novoLOG) VIAL injection 2-8 Units [...] Discontinued, Routine 0847 (Given - Provider: Ervin Fontaine, NAHUN) magnesium sulfate 1g in dextrose 5% 100mL [...] Raya RN) 0909 (Given - Provider: Loraine Saldivar, NAHUN)2008 (Given - Provider: Yamile Raya RN) 0848 (Given - Provider: Ervin Fontaine RN) rosuvastatin (CRESTOR) tablet 20 mg (CANCELED) 20 mg, Oral, EVERY EVENING, First dose on Thu01/06/14 at 1700, Until Discontinued, Routine 1733 (Given - Provider: Ervin Fontaine RN) 181 (Given - Provider: Loraine Saldivar RN) sodium chloride 0.9 % flush 5 mL (CANCELED) 5 mL, Intravenous, 2 TIMES DAILY, First dose on Thu01/06/14 at 0900, Until Discontinued, Routine 1154 (Given - Provider: Ervni Fontaine RN)2011 (Given - Provider: Yamile Raya [...] Reason: Contraindicated)1300 (Not Given - Provider: Ervin Fontaine RN [...] to induce or maintain moderate sedation per [facility] [place] Moderate Sedation Protocol, Not to exceed 50 mcg/dose, 250 mcg/hr, or 20 mcg/kg per case., EP (Intra-Procedure), Routine 1510 (Given - Provider: Yaron Don RN)1518 (Given - Provider: Yaron Don RN)1534 (Given - Provider: Yaron Don RN)1550 (Given - Provider: Yaron Don RN)1604 (Given - Provider: Yaron Don RN)1615 (Given - Provider: Yaron Don RN)164 (Given - Provider: Yaron Don RN)164 (Given - Provider: Yaron Don RN)164 (Given - Provider: Yaron Don RN) midazolam (PF) (VERSED) 1 mg/mL injection 0.5-1 mg () 0.5-1 mg, Intravenous, EVERY 5 MIN PRN, Starting on Thu01/10/14 at 1444, Until Thu01/11/14 at 0043, Sleep, As needed to induce or maintain moderate sedation per [facility] [place] Moderate [...] Don RN)1647 (Given - Provider: Yaron Don RN)165 (Given - Provider: Yaron Don RN) oxyCODONE-acetaminophen [...] Yamile Raya RN)0848 (Given - Provider: Ervin Fontaine, NAHUN)1332 (Given - Provider: Ervin Fontaine RN) zolpidem (AMBIEN) tablet 10 mg (CANCELED) 10 mg, Oral, NIGHTLY PRN, Starting on Thu01/06/14 at 0258, Until Thu01/11/14 at 1539, Sleep, Routine 0012 (Given - Provider: Teresita Lozano RN)2348 (Given - Provider: Yamile Raya RN) 0002 (Given - Provider: Yamile Raya RN) documented in this encounter Care Teams Certified Orthotic Fitter Relationship Specialty Start Date End Date Jennifer Haro MD PCP - General 01/07/12 01/30/14 documented as of this encounter
--- OUTSIDE RECORDS SUMMARY | 2023-11-03 01:30 | XMS_ITS | Encounter Summary ---
Author Organization [facility] Address [facility] [place] [address] Care Team Providers Care Private Branch Exchange Operator Name Role Phone Jennifer Haro MD Primary Care Provider [phone] Encounter Details Date Type Department Care Team (Late st Contact Info) Description 01/10/2014 3:00 PM EDT - 01/10/2014 5:00 PM EDT Surgery [place] [address] Edy Berry MD [facility] [place] [address] ELECTROPHYSIOLOGY PROCEDURE Social History Tobacco Use Types [...] Sign Reading Time Taken Comments Blood Pressure 115/74 01/10/2014 11:35 AM EDT Pulse 65 01/10/2014 11:35 AM EDT Temperature 36.3 ??C (97.3 ??F) 01/10/2014 1 1:35 AM EDT Respiratory Rate 16 01/10/2014 11:3 5 AM EDT Oxygen Saturation 100% 01/10/2014 11: 35 AM EDT Inhaled Oxygen Concentration - - Weight 90.1 kg (198 lb 10.2 oz) 01/09/2014 5:34 AM EDT Height 185.4 cm (6' 1) [...] a 91 day new device check at [facility] EP Device [facility]. 4. [...] 8:10 AM Kit Self MD [facility] Follow-Up Appointments Date and Time Provider and Specialty Location Jan 13, 2014 @ 2[facility] [facility] Doctor: Huseyin Bauman MD Your Primary Care Provider: JENNIFER HARO MD [phone] For questions regarding this document or issues relating to this hospitalization on the Medical Service, please contact your inpatient physician through the [facility] Feed Crusher Operator . Issues afterhours and on weekends will [...] times daily. 90 tablet 6 05/14/2013 01/27/2017 Hickory-3 Fatty Acids (FISH OIL) 500 mg Cap Take by mouth daily. 01/14/2016 lamotrigine (LAMICTAL) 100 mg tablet Take 200 mg by mouth daily. 09/01/2018 alprazolam (XANAX XR) 3 mg 24 hr tablet Take 3 mg by mouth nightly. 09/18/2020 lactobac cmb #4-vuo-sghoyxwryu (PROBIOTIC & ACIDOPHILUS) 300-250 million cell-mg Cap [...] answered at this time. Patient discharged to [facility] with Daughter in stable condition. Wheelchair offered; patient elected to walk. * Edy Torres PA - 01/11/2014 12:10 PM EDT Patient Name: Shahnaz Santiago Patient Age: 63 y.o. Birthdate: 1950 Admit date: 01/06/2014 Attending Physician: Huseyin Bauman MD Cardiac Electrophysiology Post-Iimplant Device Interrogation Note Shahnaz Santiago is a 63 y.o. male is POD # 1 following implant of a dual chamber, [employer] ICD for sustained ventricular tachycardia. He [...] in situ V45.02 Device data: Ventricular electrode: Trenton Kizoom Hostetter Model# 0292 Serial# [id number] Bipolar, steroid-tipped, active-fixation, single coil DF-4 lead Access: Left axillary vein Location: RV apex R wave, ICD: 9.6 mV Pacing threshold, ICD: 0.6 V at 0.5 ms Impedance, ICD: 913 ohms (74 ohms for shock vector) Pace the diaphragm at 10 V: No Atrial electrode: [employer] Dextrus Model# 4136 Serial# [id number] Bipolar, steroid-tipped, active-fixation IS-1 lead Access: Left axillary vein Location Right atrial appendage P wave, ICD: 4.3 mV Pacing threshold, pacemaker: 1.7 V at 0.5 ms Impedance, pacemaker: 538 ohms Pace the diaphragm at 10 V: No Pulse generator: [employer] Incepta Model# E162 Serial# [id number] DDDR ICD Location: Subcutaneous Defibrillation testing was [...] ~ 91 days. Provider: MAXIMO Leija Provider#: [id number] Consult attending physician: Estefanía Cross MD * Raul Salmeron RN - 01/11/2014 8:04 AM EDT Inpatient Post ICD Implant Teaching Note Verbal teaching was performed today czey-ar-gvre with the patient including the following: -Brief generalized teaching of how ICDs function, and the patient's specific indication for ICD implant -Activity restrictions post ICD implant -Remote monitoring of the ICD via telephone (patient was given [facility] Latitude communicator today). -ICD insertion site wound [...] home today Code Status: Full Code EDIE JENSEN FLORES DO Cardiology S1 (pgr. [id number]) Cardiology [...] ICD placement today. Pt is insured with [employer] Blue exchange. No discharge needs identified at this time. Will continue to follow for coordination of care and discharge planning. Nora Schaeffer CREDIT OFFICE MANAGER CRC/Stacy Pabon MSN BSN RN CRC Office of Care Managment Pager [phone] * Yamile Raya RN - 01/10/2014 6:30 [...] One episode 7 beat run VT ~150bpm. Nolan warm, needed to urinate during that time. [...] focal deficit Labs Recent Labs Basename 01/10/14 04201/09/14 04301/08/14 0703 WBC 8.8 8.0 7.5 HGB 13.6* [...] 2 minute sustained run of a junctional rythm, MD notified and ECG strips monitored. Pt asymptomatic, [...] in to convince him not to leave [facility] without an ICD. Will [...] Jennifer Harris - 01/06/2014 4:24 PM EDT [place] Encounter Note Patient Name: Shahnaz Santiago : [id number] MR#: [id number] Admit Date: 01/06/2014 1:50 AM Hospital Day 0 days Narrative: Shahnaz was happy and open to bilingual patient support caseworker visit. Assessment: We had a long conversation of what he considered that has been militating against a health life-style: smoking. Moreover he was not a nondenominational person based on his experiences over the years yet accepts prayers. Intervention and Outcome: We prayed for God's healing & strength. Follow-up: Yes Time in Direct Care: 35 mins Jennifer Zimmer Steven 01/06/2014 * Stacy Pabon RN - 01/06/2014 2:17 PM EDT Office of Care Management Clinical Church History Professor Patient Name: Shahnaz Santiago : 1950, 63 yrs Admission Date: 01/06/2014 1:50 AM Attending: Huseyin Bauman MD Order to Admit: Signed Record reviewed and patient discussed with multidisciplinary team. Lives in [place] 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 He is independent and drives. Insurance: No Insurance. (Guillermo Galen FORK REPAIRER notified) [employer] [facility] Medical/Surgical:63 yo man with ASCVD [...] planning. Office of Care Management Nora GOLDMANN RN/Stayc Pabon MSN RN Clinical Resource Coordinators Phone: [phone] Pager [phone] documented in this encounter H&P Notes * Edy Berry MD - 01/07/2014 5:02 PM EDT Inpatient Cardiac Electrophysiology Follow-up Note Date of Consultation: 01/07/2014 Admit Date: 01/06/2014 Place of Service: Inpatient Unit Reason for Consult: We are seeing Shahnaz Santiago for the evaluation of ventricular tachycardia Patient Active Problem List Diagnosis ??? ASCVD (arteriosclerotic cardiovascular disease) Overview Note: ?? Heart catheterization in [facility] in 2007 with placement of a stent in an unspecified vessel ?? Repeat heart catheterization in 2008 with placement of stents to both the LAD and circumflex ?? Followup heart catheterization in 2008 showing stable results in both vessels ?? Her current chest discomfort in a somewhat atypical pattern beginning fall ?? Nuclear stress test at [facility] in [place], [place] May 02, 2013 during which he developed left shoulder and arm discomfort during submaximal exercise on the treadmill and after which he was converted to a pharmacologic test; nuclear imaging showed ejection fraction of 45% with a partially reversible inferior defect ?? Cath [facility] 05/13/2013: normal left [...] the next morning, and he went to [facility], where ECG showed VT. He was cardioverted with return to NSR with 1st degree AVB, sub-mm STD in the lateral leads. His troponin was indeterminate. The patient was transferred to the [facility], where he has [...] mg by mouth 2 times daily. ??? Hickory-3 Fatty Acids (FISH OIL) 500 mg Cap Take by mouth daily. ??? multivitamin capsule Take 1 capsule by mouth daily. ??? LANCETS MISC by Misc.(Non-Drug; Combo Route) route. ??? lamotrigine (LAMICTAL) 100 mg tablet Take 100 mg by mouth daily. ??? alprazolam (XANAX XR) 3 mg 24 hr tablet Take 3 mg by mouth every morning. ? ? lactobac cmb #2-snc-kuwgzsayda (PROBIOTIC & ACIDOPHILUS) 300-250 million cell- mg [...] had PVD. 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 Heart catheterization in [facility] in 2007 with placement of a stent in an unspecified vessel ?? Repeat heart catheterization in 2008 with placement of stents to both the LAD and circumflex ?? Followup heart catheterization in 2008 showing stable results in both vessels ?? Her current chest discomfort in a somewhat atypical pattern beginning fall ?? Nuclear stress test at [facility] in [place], [place] May 02, 2013 during which he developed left shoulder and arm discomfort during submaximal exercise on the treadmill and after which he was converted to a pharmacologic test; nuclear imaging showed ejection fraction of 45% with a partially reversible inferior defect ?? Cath [facility] 05/13/2013: normal left [...] LAD; no hx [place]) and tobacco use. [place] recently had a JON placed to the [...] the next morning, and he went to [facility], where ECG showed VT. He was cardioverted with return to NSR with 1st degree AVB, sub-mm STD in the lateral leads. His troponin was indeterminate. The patient was transferred to the [facility], where he has [...] mg by mouth 2 times daily. ??? Hickory-3 Fatty Acids (FISH OIL) 500 mg Cap Take by mouth daily. ??? multivitamin capsule Take 1 capsule by mouth daily. ??? LANCETS MISC by Misc.(Non-Drug; Combo Route) route. ??? lamotrigine (LAMICTAL) 100 mg tablet Take 100 mg by mouth daily. ??? alprazolam (XANAX XR) 3 mg 24 hr tablet Take 3 mg by mouth every morning. ? ? lactobac cmb #4-dbt-umsswtnaes (PROBIOTIC & ACIDOPHILUS) 300-250 million cell- mg [...] had PVD. 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 He should ideally check pulse for any recurrent symptoms of VT (e.g. Weakness, SOB) and not delay hospital presentation as he did this time. Will discuss more with him in AM. * Huseyin Bauman MD - 01/06/2014 2:45 AM EDT Cardiology Admission History and Physical Patient Name: Shahnaz Santiago Service: [address] Responsible Attending: Huseyin Bauman MD, MD PCP: JENNIFER HARO MD PCP phone #: [phone] ID/Chief Complaint: 63 yo man with ASCVD [...] a chronic, has beenaffecting him 20 years, ozqjaerzf-kv-sxelfocgec, sternally located discomfort that is constant and [...] change from his baseline he went to [facility] ED for evaluation.There he was found to be tachycardic in the 160s, BP 108/64 and sating 96% on room air. An EKG revealed a monomorphic tachycardia. He was given versed 4mg, cardiovert with 120J biphasic. The patient's repeat EKG showed sinus rhythm with a 1st degree AV block MT of 214ms, as well as new T-wave inversions and sub 1mm ST depressions in V3-V6. His troponin was an indeterminate value 0.13 (0.06-0.59 =indeterminate). The patient was then transferred to [facility]. , OSH labs prior [...] (arteriosclerotic cardiovascular disease) ?? Heart catheterization in [facility] in 2007 with placement of a stent in an unspecified vessel ?? Repeat heart catheterization in 2008 with placement of stents to both the LAD and circumflex ?? Followup heart catheterization in 2008 showing stable results in both vessels ?? Her current chest discomfort in a somewhat atypical pattern beginning fall ?? Nuclear stress test at [facility] in [place], [place] May 02, 2013 during which he developed left shoulder and arm discomfort during submaximal exercise on the treadmill and after which he was converted to a pharmacologic test; nuclear imaging showed ejection fraction of 45% with a partially reversible inferior defect ?? Cath [facility] 05/13/2013: normal left [...] Cap Take by mouth daily. Generic drug: Hickory-3 Fatty Acids Refills: 0 glipiZIDE 5 mg [...] by mouth daily. Generic drug: lactobac cmb #0-ode-abryfcqtfa Refills: 0 rosuvastatin 20 mg Tab Commonly [...] ischemia Kalyan Babb, PGY-2 Team Pager # [phone] Cardiology Attending Addendum I have interviewed and [...] 01/12/2014 11:50 AM EDTAssociated Order(s): SCAN DOC: FIBERGLASS ROVING WINDER documented in this encounter Miscellaneous Notes * [...] a chronic, has beenaffecting him 20 years, wkeqymvty-ee-fheiqkicqk, sternally located discomfort that is constant and [...] change from his baseline he went to [facility] ED for evaluation.There he was found to be tachycardic in the 160s, BP 108/64 and sating 96% on room air. An EKG revealed a monomorphic tachycardia. He was given versed 4mg, cardiovert with 120J biphasic. The patient's repeat EKG showed sinus rhythm with a 1st degree AV block MT of 214ms, as well as new T-wave inversions and sub 1mm ST depressions in V3-V6. His troponin was an indeterminate value 0.13 (0.06-0.59 =indeterminate). The patient was then transferred to [facility]. 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 [...] smoking (1 pack/day) after moving back to [place]. A consult to smoking cessation was placed [...] (CL) of 1070 ms were as follows: MT: 230 ms HV: 40 ms (?) QRS: 110 ms (no manifest pre-excitation) QT: 450 ms 2) Atrial overdrive pacing (10 mA @ 2 ms) was accomplished from the low right atrium, and the atrioventricular (AV) Wenckebach block CL was observed at 500 ms. There was no pre-excitation or conduction aberrancy identified. The xjmwlwtm-rl-FRR < QRS-QRS just prior to the observed [...] Cap Take by mouth daily. Generic drug: Hickory-3 Fatty Acids Refills: 0 glipiZIDE 5 mg [...] by mouth daily. Generic drug: lactobac cmb #6-uor-nlrbeauplp Refills: 0 rosuvastatin 20 mg Tab Commonly [...] Center 02/07/2014 8:10 AM Kit Self MD [facility] Cardio [facility] Follow-Up Appointments Date and Time Provider and Specialty Location Jan 13, 2014 @ 2:[address] [facility] Inpatient Doctor: Huseyin Bauman MD Your Primary Care Provider: JENNIFER HARO MD [phone] For questions regarding this document or issues relating to this hospitalization on the Medical Service, please contact your inpatient physician through the [facility] Feed Crusher Operator . Issues afterhours and on weekends will be handled by the Hospitalist staff on-call. Future Appointments and Orders Future Appointments: Provider: Department: Dept Phone: Center: 02/07/2014 8:10 AM Kit Self MD Cardiology [phone] [facility] Joint Appt Nurse One Cardiology Antoni, NAHUN MOTLEY 4A [phone] [facility] 04/10/2014 9:30 AM Raul Salmeron RN Cardiology [phone] [facility] For questions regarding this document or issues relating to this hospitalization on the Medical Service, please contact your inpatient physician through the [facility] Feed Crusher Operator . Issues afterhours and on weekends will be handled by the Title Supervisor staff on-call. Signed: HUSEYIN BAUMAN MD * [...] in the out pt CR program at [facility]. He was admitted with LLOYD and VT. Cardiac cath showed no ischemic etiology of sx. Being considered for ICD. Will refer him back to the [facility] prog at discharge * Miscellaneous - Provider, Scanning - 01/07/2014 2:41 PM EDT * Op Note - José Manuel Cole MD - 01/06/2014 5:34 PM EDT Electrophysiology Study Feed Crusher Operator: José Manuel Cole MD Indication: Ventricular tachycardia [...] (CL) of 1070 ms were as follows: MT: 230 ms HV: 40 ms (?) QRS: 110 ms (no manifest pre-excitation) QT: 450 ms 2) Atrial overdrive pacing (10 mA @ 2 ms) was accomplished from the low right atrium, and the atrioventricular (AV) Wenckebach block CL was observed at 500 ms. There was no pre-excitation or conduction aberrancy identified. The ykiblrui-kt-SDN < QRS-QRS just prior to the observed [...] AM EDT Hospital Encounter [place] [address] Arrived documented as of this encounter Procedures Procedure Name Priority Date/Time Associated Diagnosis Comments FIBERGLASS ROVING WINDER SCAN 01/12/2014 11:50 AM EDT POCT GLUCOSE [...] 4:21 AM EDT DIFFERENTIAL, AUTOMATED Routine 01/11/20 14 4:21 AM EDT CBC (WITH DIFF) Routine [...] 4:32 AM EDT DIFFERENTIAL, AUTOMATED Routine 01/10/20 14 4:32 AM EDT CBC (WITH DIFF) Routine [...] Routine 01/07/20 3:58 PM EDT CARDIAC ENZYMES ([facility]) Routine 01/06/2014 12:40 PM EDT POCT GLUCOSE Routine 01/06/2014 12:15 PM EDT CARDIAC ENZYMES ([facility]) Routine 01/06/2014 11:30 AM [...] 01/07/20 14 2:50 AM EDT CARDIAC ENZYMES ([facility]) Routine 01/06/2014 2:50 AM EDT CBC (WITH DIFF) Routine 01/06/2014 2:50 AM EDT MAGNESIUM Routine 01/06/2014 2:50 AM EDT LIPID PANEL (REFLEX DIRECT LDL) Routine 01/06/2014 2:50 AM EDT BASIC METABOLIC PANEL (NON-FASTING) Routine 01/06/2014 2:50 AM EDT EKG 12-LEAD Routine 01/06/2014 2:01 AM EDT documented in this encounter Results * SCAN DOC: FIBERGLASS ROVING WINDER (01/12/2014 11:50 AM EDT) Anatomical Region Laterality Modality Other Narrative 01/12/2014 11:53 AM EDT Procedure Note Provider, Scanning - 01/12/2014 11:50 AM EDT Scanning Provider MEDIA MGR SCAN EXT O RDR/RSLT * (ABNORMAL) POCT Glucose (01/11/2014 11:55 AM EDT) POC Glucose 285(H) 60 - 199 mg/dL MONICA [employer] Comment: Supplemental ranges: <140 mg/dL before meals <180 mg/dL all other times of the day Blood specimen (specimen) 01/11/2014 11:55 AM EDT 01/11/2014 11:55 AM EDT Huseyin Bauman MD POINT OF CARE TEST O RDERABLES [facility] * XR chest routine PA & [...] Huseyin Bauman MD HEMATOLOGY ORDERABLE S MONICA BENITEZIUM * Magnesium (01/11/2014 3:56 AM EDT) [...] intervals supplied above were not validated at [facility]. Results from pediatric patients [...] the following links into your internet browser. [email or web address] Blood specimen (specimen) 01/11/2014 3:56 AM EDT 01/11/2014 4:21 AM EDT Narrative Resulting Agency Comment Spec In Lab Huseyin aBuman MD CHEMISTRY ORDERABLES Performing Organization Address [facility] de Phone Number MONICA PERALTA * POCT Glucose (01/11/2014 3:46 AM EDT) POC Glucose 137 60 - 199 mg/dL MONICA [employer] Comment: Supplemental ranges: <140 mg/dL before meals <180 mg/dL all other times of the day Blood specimen (specimen) 01/11/2014 3:46 AM EDT 01/11/2014 3:46 AM EDT Huseyin Bauman MD POINT OF CARE TEST O RDERABLES Performing Organization Address [facility] Phone Number MONICA BENITEZIUM * POCT Glucose (01/10/2014 11:57 PM EDT) POC Glucose 173 60 - 199 mg/dL MONICA [employer] Comment: Supplemental ranges: <140 mg/dL before meals <180 mg/dL all other times of the day Blood specimen (specimen) 01/10/2014 11:57 PM EDT 01/10/2014 11:57 PM EDT Huseyin Bauman MD POINT OF CARE TEST O RDERABLES Performing Organization Address [facility] de Phone Number MONICA PERALTA * (ABNORMAL) POCT Glucose (01/10/2014 8:31 PM EDT) POC Glucose 201(H) 60 - 199 mg/dL MONICA [employer] Comment: Supplemental ranges: <140 mg/dL before meals <180 mg/dL all other times of the day Blood specimen (specimen) 01/10/2014 8:31 PM EDT 01/10/2014 8:31 PM EDT Huseyin Bauman MD POINT OF CARE TEST O RDERABLES Performing Organization Address [facility] Co de Phone Number [facility] * POCT Glucose (01/10/2014 6:04 PM EDT) POC Glucose 164 60 - 199 mg/dL [facility] Comment: Supplemental ranges: <140 mg/dL before meals <180 mg/dL all other times of the day Blood specimen (specimen) 01/10/2014 6:04 PM EDT 01/10/2014 6:04 PM EDT Huseyin Bauman MD POINT OF CARE TEST O SAM[place]ON Performing Organization Address [facility] Phone Number [facility] * Electrophysiology Procedure (01/10/2014 5:19 PM EDT) [...] with O-silk. Final Parameters: Ventricular electrode: ?? Olery Hostetter Model# 0292 Serial# [id number] ??Bipolar, steroid-tipped, active-fixation, ??single coil DF-4 lead ??Access: ? Left axillary vein ??Location: ?RV apex ??R wave, ICD: ? 9.6 mV ??Pacing threshold, ICD: ? 0.6 V at 0.5 ms ??Impedance, ICD: ? 913 ohms (74 ohms for shock vector) ??Pace the diaphragm at 10 V: ??No Atrial electrode: ?? [employer]on Kizoom Dextrus Model# 4136 Serial# [id number] ??Bipolar, steroid-tipped, active-fixation IS-1 lead ??Access: ? Left axillary vein ??Location ? Right atrial appendage ??P wave, ICD: ? 4.3 mV ??Pacing threshold, pacemaker: ??1.7 V at 0.5 ms ??Impedance, pacemaker: ??538 ohms ??Pace the diaphragm at 10 V: ??No Pulse generator: ? [employer] Incepta Model# E162 Serial# [id number] DDDR ICD ??Location: ?Subcutaneous Defibrillation testing was [...] major muscle withO-silk. Final Parameters: Ventricular electrode: Olery Hostetter Model# 0292 Serial# [id number] Bipolar, steroid-tipped, active-fixation, single coil DF-4 lead Access: Left axillary vein Location: RV apex R wave, ICD: 9.6 mV Pacing threshold, ICD: 0.6 V at 0.5 ms Impedance, ICD: 913 ohms (74 ohms for shock vector) Pace the diaphragm at 10 V: No Atrial electrode: [employer] Dextrus Model# 4136 Serial# [id number] Bipolar, steroid-tipped, active-fixation IS-1 lead Access: Left axillary vein Location Right atrial appendage P wave, ICD: 4.3 mV Pacing threshold, pacemaker: 1.7 V at 0.5 ms Impedance, pacemaker: 538 ohms Pace the diaphragm at 10 V: No Pulse generator: [employer] Incepta Model# E162 Serial# [id number] DDDR ICD Location: Subcutaneous Defibrillation testing was [...] POC Glucose 218(H) 60 - 199 mg/dL [facility] Comment: Supplemental ranges: <140 mg/dL before meals <180 mg/dL all other times of the day Blood specimen (specimen) 01/10/2014 11:39 AM EDT 01/10/2014 11:39 AM EDT Huseyin Bauman MD POINT OF CARE TEST O RDERALOREE Performing Organization Address [facility] de Phone Number MONICA PERALTA * (ABNORMAL) POCT Glucose (01/10/2014 7:36 AM EDT) POC Glucose 242(H) 60 - 199 mg/dL STACYDELMAR BENITEZIUM Comment: Supplemental ranges: <140 mg/dL before meals <180 mg/dL all other times of the day Blood specimen (specimen) 01/10/2014 7:36 AM EDT 01/10/2014 7:36 AM EDT Huseyin Bauman MD POINT OF CARE TEST O [place] Performing Organization Address [facility] de Phone Number MONICA PERALTA * POCT Glucose (01/10/2014 4:25 AM EDT) POC Glucose 153 60 - 199 mg/dL [facility] Comment: Supplemental ranges: <140 mg/dL before meals <180 mg/dL all other times of the day Blood specimen (specimen) 01/10/2014 4:25 AM EDT 01/10/2014 4:25 AM EDT Huseyin Bauman MD POINT OF CARE TEST O SAMPSON Performing Organization Address [facility] de Phone Number MONICA [...] Lab Huseyin Bauman MD HEMATOLOGY ORDERABLE S [facility] [place] MILLENNIUM * (ABNORMAL) Hemogram (01/10/2014 4:21 AM [...] Bauman MD CHEMISTRY ORDERABLES Performing Organization Address City/[facility] Co de Phone Number CERNER MILLENNIUM * Basic Metabolic Panel (non-fasting) (01/10/2014 4:21 AM EDT) Glucose Lvl 161 60 - 199 mg/dL CERNER MILLENNIUM Comment:Diabetes: >=200 mg/d L plus symptoms BUN 17 10 - 20 mg/dL CERNER MILLENNIUM Creatinine 0.91 0.80 - 1.50 mg/dL CERNER MILLENNIUM Comment: Please note that the pediatric reference intervals supplied above were not validated at [facility]. Results from pediatric patients [...] the following links into your internet browser. [email or web address] Blood specimen (specimen) 01/10/2014 4:21 AM EDT 01/10/2014 4:36 AM EDT Narrative Resulting Agency Comment Spec In Lab Huseyin Bauman MD CHEMISTRY ORDERABLES Performing Organization Address [facility] de Phone Number [facility] * POCT Glucose (01/09/2014 11:25 PM EDT) POC Glucose 164 60 - 199 mg/dL [facility] Comment: Supplemental ranges: <140 mg/dL before meals <180 mg/dL all other times of the day Blood specimen (specimen) 01/09/2014 11:25 PM EDT 01/09/2014 11:25 PM EDT Huseyin Bauman MD POINT OF CARE TEST O RDERABLES Performing Organization Address [facility] de Phone Number [facility] * (ABNORMAL) POCT Glucose (01/09/2014 8:03 PM EDT) POC Glucose 204(H) 60 - 199 mg/dL [facility] Comment: Supplemental ranges: <140 mg/dL before meals <180 mg/dL all other times of the day Blood specimen (specimen) 01/09/2014 8:03 PM EDT 01/09/2014 8:03 PM EDT Huseyin Bauman MD POINT OF CARE TEST O RDERABLES Performing Organization Address [facility] Co de Phone Number [facility] * (ABNORMAL) POCT Glucose (01/09/2014 4:34 PM EDT) POC Glucose 231(H) 60 - 199 mg/dL [facility] Comment: Supplemental ranges: <140 mg/dL before meals <180 mg/dL all other times of the day Blood specimen (specimen) 01/09/2014 4:34 PM EDT 01/09/2014 4:34 PM EDT Huseyin Bauman MD POINT OF CARE TEST O RDERALOREE Performing Organization Address [facility] de Phone Number [facility] * (ABNORMAL) POCT Glucose (01/09/2014 11:44 AM EDT) POC Glucose 280(H) 60 - 199 mg/dL [facility] Comment: Supplemental ranges: <140 mg/dL before meals <180 mg/dL all other times of the day Blood specimen (specimen) 01/09/2014 11:44 AM EDT 01/09/2014 11:44 AM EDT Huseyin Bauman MD POINT OF CARE TEST O RDERABLES Performing Organization Address [facility] de Phone Number [facility] * POCT Glucose (01/09/2014 7:51 AM EDT) POC Glucose 148 60 - 199 mg/dL [facility] Comment: Supplemental ranges: <140 mg/dL before meals <180 mg/dL all other times of the day Blood specimen (specimen) 01/09/2014 7:51 AM EDT 01/09/2014 7:51 AM EDT Huseyin Bauman MD POINT OF CARE TEST O RDERABLES Performing Organization Address [facility] Co de Phone Number [facility] * Basic Metabolic Panel (non-fasting) (01/09/2014 4:32 AM EDT) [facility] Glucose Lvl 124 60 - 199 mg/dL CERNER MILLENNIUM Comment:Diabetes: >=200 mg/d L plus symptoms BUN 15 10 - 20 mg/dL CERNER MILLENNIUM Creatinine 0.87 0.80 - 1.50 mg/dL CERNER MILLENNIUM Comment: Please note that the pediatric reference intervals supplied above were not validated at [facility]. Results from pediatric patients [...] the following links into your internet browser. [email or web address] Blood specimen (specimen) 01/09/2014 4:32 AM EDT 01/09/2014 4:38 AM EDT Narrative Resulting Agency Comment Spec In Lab Huseyin Bauman MD CHEMISTRY ORDERABLES [facility] [place] MILL[facility]NIUM * (ABNORMAL) Differential, Automated (01/09/2014 4:32 AM [...] Huseyin Bauman MD HEMATOLOGY ORDERABLE S MONICA BENITEZIUM * (ABNORMAL) Hemogram (01/09/2014 4:32 AM EDT) WBC 8.0 4.0 - 10.0 x10(3)/mcL CERNER MILLENNIUM RBC 4.83 4.63 - 6.08 x10(6)/mcL CERNER MILLENNIUM Hemoglobin 14.5 13.7 - 17.5 gm/dL [facility] Comment:Repeated & verified Hematocrit 43.0 40.0 - 51.0 % [facility] EMMANUELIUM MCV 89.0 79.0 - 92.0 fL [facility] BENITEZIUM MCH 30.0 25.6 - 32.2 pg [facility] [place] [facility] MCHC 33.7 32.0 - 36.5 gm/dL [facility] Platelets 184 145 - 370 x10(3)/mcL MONICA BENITEZIUM RDWSD 47.4(H) 35.0 - 46.0 fL [facility] EMMANUELIUM RDWCV 14.8(H) 10.9 - 14.4 % [facility] [place] [facility] MPV 10.3 9.0 - 12.0 fL [facility] Blood specimen (specimen) 01/09/2014 4:32 AM EDT 01/09/2014 4:38 AM EDT Narrative Resulting Agency Comment Spec In Lab Huseyin Bauman MD HEMATOLOGY ORDERABLE S [facility] * Magnesium (01/09/2014 4:32 AM EDT) Pathologist [facility] Magnesium 0.76 0.69 - 1.07 mmol/L [facility] Blood specimen (specimen) 01/09/2014 4:32 AM EDT 01/09/2014 4:38 AM EDT Narrative Resulting Agency Comment Spec In Lab Huseyin Bauman MD CHEMISTRY ORDERABLES [facility] * POCT Glucose (01/09/2014 4:19 AM EDT) POC Glucose 114 60 - 199 mg/dL [facility] Comment: Supplemental ranges: <140 mg/dL before meals <180 mg/dL all other times of the day Blood specimen (specimen) 01/09/2014 4:19 AM EDT 01/09/2014 4:19 AM EDT Huseyin Bauman MD POINT OF CARE TEST O RDERABLES Performing Organization Address [facility] Co de Phone Number MONICA PERALTA * POCT Glucose (01/09/2014 1:41 AM EDT) POC Glucose 155 60 - 199 mg/dL [facility] Comment: Supplemental ranges: <140 mg/dL before meals <180 mg/dL all other times of the day Blood specimen (specimen) 01/09/2014 1:41 AM EDT 01/09/2014 1:41 AM EDT Huseyin Bauman MD POINT OF CARE TEST O SAMPSON Performing Organization Address [facility] de Phone Number [facility]ICA [facility] * (ABNORMAL) POCT Glucose (01/08/2014 11:19 PM EDT) POC Glucose 252(H) 60 - 199 mg/dL [facility] Comment: Supplemental ranges: <140 mg/dL before meals <180 mg/dL all other times of the day Blood specimen (specimen) 01/08/2014 11:19 PM EDT 01/08/2014 11:19 PM EDT Huseyin Bauman MD POINT OF CARE TEST O SAMPSON Performing Organization Address [facility] de Phone Number MONICA PERALTA * (ABNORMAL) POCT Glucose (01/08/2014 7:50 PM EDT) POC Glucose 205(H) 60 - 199 mg/dL [facility] Comment: Supplemental ranges: <140 mg/dL before meals <180 mg/dL all other times of the day Blood specimen (specimen) 01/08/2014 7:50 PM EDT 01/08/2014 7:50 PM EDT Huseyin Bauman MD POINT OF CARE TEST O RDERALOREE Performing Organization Address [facility] Co de Phone Number [facility]ICA [facility] * POCT Glucose (01/08/2014 5:17 PM EDT) POC Glucose 194 60 - 199 mg/dL [facility] Comment: Supplemental ranges: <140 mg/dL before meals <180 mg/dL all other times of the day Blood specimen (specimen) 01/08/2014 5:17 PM EDT 01/08/2014 5:17 PM EDT Huseyin Bauman MD POINT OF CARE TEST O RDERABLES Performing Organization Address City/[facility] Co de Phone Number MONICA BENITEZIUM * (ABNORMAL) POCT Glucose (01/08/2014 2:21 PM EDT) POC Glucose 230(H) 60 - 199 mg/dL [facility] Comment: Supplemental ranges: <140 mg/dL before meals <180 mg/dL all other times of the day Blood specimen (specimen) 01/08/2014 2:21 PM EDT 01/08/2014 2:21 PM EDT Huseyin Bauman MD POINT OF CARE TEST O RDERABLES Performing Organization Address [facility] Co de Phone Number MONICA BENITEZIUM * (ABNORMAL) POCT Glucose (01/08/2014 12:04 PM EDT) POC Glucose 240(H) 60 - 199 mg/dL MONICA MILTONENNIUM Comment: Supplemental ranges: <140 mg/dL before meals <180 mg/dL all other times of the day Blood specimen (specimen) 01/08/2014 12:04 PM EDT 01/08/2014 12:04 PM EDT Huseyin Bauman MD POINT OF CARE TEST O RDERABLES MONICA BENITEZIUM * POCT Glucose (01/08/2014 7:56 AM EDT) POC Glucose 125 60 - 199 mg/dL MONICA MILTONENNIUM Comment: Supplemental ranges: <140 mg/dL before meals <180 mg/dL all other times of the day Blood specimen (specimen) 01/08/2014 7:56 AM EDT 01/08/2014 7:56 AM EDT Huseyin Bauman MD POINT OF CARE TEST O RDERABLES MONICA ROSEENNIUM * (ABNORMAL) Magnesium (01/08/2014 7:03 AM EDT) Magnesium 0.58(L) 0.69 - 1.07 mmol/L CERNER MILTONENNIUM Blood specimen (specimen) 01/08/2014 7:03 AM EDT 01/08/2014 7:09 AM EDT Narrative Resulting Agency Comment Spec In Lab Huseyin Bauman MD CHEMISTRY ORDERABLES Performing Organization Address [facility] Co de Phone Number MONICA ROSEENNIUM [...] MD HEMATOLOGY ORDERABLE S Performing Organization Address City/[facility]/ZIP Co de Phone Number CERDELMAR ROSEENNIUM * [...] MD HEMATOLOGY ORDERABLE S Performing Organization Address [facility]/ZIP Co de Phone Number MONICA BENITEZIUM * (ABNORMAL) Basic Metabolic Panel (non-fasting) (01/08/2014 7:03 AM EDT) Glucose Lvl 133 60 - 199 mg/dL CERNER MILLENNIUM Comment:Diabetes: >=200 mg/d L plus symptoms BUN 16 10 - 20 mg/dL CERNER MILLENNIUM Creatinine 0.74(L) 0.80 - 1.50 mg/dL CERNER MILLENNIUM Comment: Please note that the pediatric reference intervals supplied above were not validated at [facility]. Results from pediatric patients [...] the following links into your internet browser. [email or web address] Blood specimen (specimen) 01/08/2014 7:03 AM EDT 01/08/2014 7:08 AM EDT Narrative Resulting Agency Comment Spec In Lab Huseyin Bauman MD CHEMISTRY ORDERABLES [facility] * (ABNORMAL) POCT Glucose (01/08/2014 3:55 AM EDT) POC Glucose 219(H) 60 - 199 mg/dL [facility] Comment: Supplemental ranges: <140 mg/dL before meals <180 mg/dL all other times of the day Blood specimen (specimen) 01/08/2014 3:55 AM EDT 01/08/2014 3:55 AM EDT Huseyin Bauman MD POINT OF CARE TEST O RDERALOREE Performing Organization Address [facility] de Phone Number [facility] * POCT Glucose (01/07/2014 11:51 PM EDT) POC Glucose 153 60 - 199 mg/dL [facility] Comment: Supplemental ranges: <140 mg/dL before meals <180 mg/dL all other times of the day Blood specimen (specimen) 01/07/2014 11:51 PM EDT 01/07/2014 11:51 PM EDT Huseyin Bauman MD POINT OF CARE TEST O SAM[place]ON Performing Organization Address [facility] de Phone Number [facility] * POCT Glucose (01/07/2014 9:32 PM EDT) POC Glucose 190 60 - 199 mg/dL [facility] Comment: Supplemental ranges: <140 mg/dL before meals <180 mg/dL all other times of the day Blood specimen (specimen) 01/07/2014 9:32 PM EDT 01/07/2014 9:32 PM EDT Huseyin Bauman MD POINT OF CARE TEST O RDERALOREE Performing Organization Address [facility] de Phone Number [facility] * (ABNORMAL) POCT Glucose (01/07/2014 7:36 PM EDT) POC Glucose 223(H) 60 - 199 mg/dL [facility] Comment: Supplemental ranges: <140 mg/dL before meals <180 mg/dL all other times of the day Blood specimen (specimen) 01/07/2014 7:36 PM EDT 01/07/2014 7:36 PM EDT Huseyin Bauman MD POINT OF CARE TEST O RDERABLES Performing Organization Address [facility] de Phone Number MONICA PERALTA * POCT Glucose (01/07/2014 5:32 PM EDT) POC Glucose 180 60 - 199 mg/dL [facility] Comment: Supplemental ranges: <140 mg/dL before meals <180 mg/dL all other times of the day Blood specimen (specimen) 01/07/2014 5:32 PM EDT 01/07/2014 5:32 PM EDT Huseyin Bauman MD POINT OF CARE TEST O RDERABLES Performing Organization Address [facility] de Phone Number MONICA PERALTA * (ABNORMAL) POCT Glucose (01/07/2014 1:24 PM EDT) POC Glucose 240(H) 60 - 199 mg/dL [facility] Comment: Supplemental ranges: <140 mg/dL before meals <180 mg/dL all other times of the day Blood specimen (specimen) 01/07/2014 1:24 PM EDT 01/07/2014 1:24 PM EDT Huseyin Bauman MD POINT OF CARE TEST O RDERABLES Performing Organization Address [facility] de Phone Number MONICA PERALTA * (ABNORMAL) Magnesium (01/07/2014 10:00 AM EDT) Magnesium 0.66(L) 0.69 - 1.07 mmol/L MONICA MILTONSEPIDEHIUM Blood specimen (specimen) 01/07/2014 10:00 AM EDT 01/07/2014 10:17 AM EDT Narrative Resulting Agency Comment Spec In Lab Huseyin Bauman MD CHEMISTRY ORDERABLES Performing Organization Address [facility] de Phone Number MONICA PERALTA * Potassium [...] Bauman MD CHEMISTRY ORDERABLES Performing Organization Address City/[facility]/ZIP Co de Phone Number MONICA BENITEZIUM * POCT Glucose (01/07/2014 9:23 AM EDT) Pathologist [facility] POC Glucose 178 60 - 199 mg/dL STACYNER MILTONENNIUM Comment: Supplemental ranges: <140 mg/dL before meals <180 mg/dL all other times of the day Blood specimen (specimen) 01/07/2014 9:23 AM EDT 01/07/2014 9:23 AM EDT Huseyin Bauman MD POINT OF CARE TEST O RDERABLES Performing Organization Address [facility]/ZIP Co de Phone Number MONICA BENITEZIUM * Differential, [...] ORDERABLE S CERNER MILLENNIUM * (ABNORMAL) Magnesium (01/07/2014 3:40 AM EDT) Magnesium 0.61(L) 0.69 - 1.07 mmol/L CERNER MILLENNIUM Blood specimen (specimen) 01/07/2014 3:40 AM EDT 01/07/2014 3:43 AM EDT Narrative Resulting Agency Comment Spec In Lab Huseyin Bauman MD CHEMISTRY ORDERABLES Performing Organization Address [facility] Co de Phone Number CERNER MILLENNIUM * (ABNORMAL) Basic Metabolic Panel (non-fasting) (01/07/2014 3:40 AM EDT) Glucose Lvl 93 60 - 199 mg/dL CERNER MILLENNIUM Comment:Diabetes: >=200 mg/d L plus symptoms BUN 20 10 - 20 mg/dL CERNER MILLENNIUM Creatinine 0.81 0.80 - 1.50 mg/dL CERNER MILLENNIUM Comment: Please note that the pediatric reference intervals supplied above were not validated at [facility]. Results from pediatric patients [...] MILLENNIUM Calcium 8.8 8.5 - 10.5 mg/dL [facility] Estimated GFR >60 >=60 [facility] Comment: This estimated GFR (eGFR) value [...] the following links into your internet browser. [email or web address] Blood specimen (specimen) 01/07/2014 3:40 AM EDT 01/07/2014 3:43 AM EDT Narrative Resulting Agency Comment Spec In Lab Huseyin Bauman MD CHEMISTRY ORDERABLES Performing Organization Address [facility] de Phone Number [facility] * POCT Glucose (01/07/2014 3:39 AM EDT) POC Glucose 95 60 - 199 mg/dL [facility] Comment: Supplemental ranges: <140 mg/dL before meals <180 mg/dL all other times of the day Blood specimen (specimen) 01/07/2014 3:39 AM EDT 01/07/2014 3:39 AM EDT Huseyin Bauman MD POINT OF CARE TEST O RDERABLES Performing Organization Address [facility] de Phone Number [facility] * POCT Glucose (01/06/2014 11:40 PM EDT) POC Glucose 130 60 - 199 mg/dL [facility] Comment: Supplemental ranges: <140 mg/dL before meals <180 mg/dL all other times of the day Blood specimen (specimen) 01/06/2014 11:40 PM EDT 01/06/2014 11:40 PM EDT Huseyin Bauman MD POINT OF CARE TEST O RDERABLES Performing Organization Address [facility] de Phone Number [facility] * POCT Glucose (01/06/2014 9:23 PM EDT) POC Glucose 173 60 - 199 mg/dL [facility] Comment: Supplemental ranges: <140 mg/dL before meals <180 mg/dL all other times of the day Blood specimen (specimen) 01/06/2014 9:23 PM EDT 01/06/2014 9:23 PM EDT Huseyin Bauman MD POINT OF CARE TEST O RDERABLES Performing Organization Address [facility] de Phone Number [facility] * POCT Glucose (01/06/2014 6:42 PM EDT) POC Glucose 125 60 - 199 mg/dL [facility] Comment: Supplemental ranges: <140 mg/dL before meals <180 mg/dL all other times of the day Blood specimen (specimen) 01/06/2014 6:42 PM EDT 01/06/2014 6:42 PM EDT Huseyin Bauman MD POINT OF CARE TEST O RDERALOREE Performing Organization Address [facility] de Phone Number [facility] * Electrophysiology Procedure (01/06/2014 5:20 PM [...] AM EDT ?[facility] ? Cardiac Catheterization/Intervention Report ? Patient Name: Shahnaz Santiago ? Procedure Date: 01/06/2014 ? A #: [id number] ? Primary Physician: Britton, Jaron W. ? Case #: [id number] ? File Name: [id number] ? Catheterization Order Number: [id number] ? [facility] ? Final Report [place], [place] ? Patient Name: ? Shahnaz Santiago ? ID#: ?[id number] ? : ?1950 ? Procedure Date: ? January 06, 2014 ? Case #: ? 14- [id number] ? Room: ? 1 ? Case Physician: ? Jaron Jarquin M.D. ? Start: ?14:40 ?Fellow: ? Jennifer Nguyen Chiaco, ?Admission: ??01/06/2014 ?M.D. ? Referring Physician: ??Jennifer Haro M.D. ? Procedures: ?* Coronary Angiography ?* Left Heart Catheterization ?* Coronary Flow Ruthven Measurement ?* Coronary Instantaneous Wave-Free Ratio ?* [...] Britton, M.D. ? Electronically Signed by: Jaron Jarquin, M.D. ? Report Finalized: 01/06/2014 ??16:11 ? Procedure Note Jaron Jarquin II, MD - 01/09/2014 [facility] Cardiac Catheterization/Intervention Report Patient Name: Shahnaz Santiago Procedure Date: 01/06/2014 A #: [id number] Primary Physician: Jaron Jarquin Case #: File Name: [id number] Catheterization Order Number: [id number] [facility] FinalReport [place], [place] Patient Name: Shahnaz Santiago ID#:[id number] :1950 Procedure Date: January 06, 2014 Case #: Room: 1 Case Physician: Jaron Jarquin M.D. Start: 14:40 Fellow: Jennifer Argueta, Admission:01/06/2014 Adriana Referring Physician: Jennifer Haro M.D. Procedures: * Coronary Angiography * Left Heart Catheterization * Coronary Flow Ruthven Measurement * Coronary Instantaneous Wave-Free Ratio * [...] 12:40 PM EDT) Troponin-T 0.10(H) <=0.03 ng/mL STACYDELMAR ROSEENNIUM Comment: 0.03 ng/mL: Represents the 99th percentile [...] consensus document of the Joint Society of Cardiology/[place] College of Cardiology Committee for the redefinition of myocardial infarction. ??Journal of the [place] College of [employer]iology 2000; 36: 959-969] CK, Total 127 0 - 200 unit/L [facility] Blood specimen (specimen) 01/06/2014 12:40 PM EDT 01/06/2014 12:52 PM EDT Narrative Resulting Agency Comment Spec In Lab Huseyin Bauman MD CHEMISTRY ORDERABLES Performing Organization Address [facility] Co de Phone Number [facility]ICA [facility] * POCT Glucose (01/06/2014 12:15 PM EDT) Pathologist [facility] POC Glucose 165 60 - 199 mg/dL MONICA [facility] Comment: Supplemental ranges: <140 mg/dL before meals <180 mg/dL all other times of the day Blood specimen (specimen) 01/06/2014 12:15 PM EDT 01/06/2014 12:15 PM EDT Huseyin Bauman MD POINT OF CARE TEST O RDERABLES Performing Organization Address [facility] Co de Phone Number [facility]ICA [facility] * Cardiac Enzymes (01/06/2014 11:30 AM EDT) Troponin-T Not Perf <=0.03 ng/mL [facility] Comment: Unable to quantitate due to sample [...] consensus document of the Joint Society of Cardiology/[place] College of Cardiology Committee for the redefinition of myocardial infarction. ??Journal of the [place] College of Cardiology 2000; 36: 959-969] CK, Total 132 0 - 200 unit/L [facility] Blood specimen (specimen) 01/06/2014 11:30 AM EDT 01/06/2014 11:45 AM EDT Narrative Resulting Agency Comment Spec In Lab Huseyin Bauman MD CHEMISTRY ORDERABLES Performing Organization Address City/[facility]/ZIP Co de Phone Number [facility] * (ABNORMAL) APTT (01/06/2014 11:30 AM EDT) PTT 48(H) 25 - 35 sec [facility] Comment: Recommended therapeutic PTT range for full dose unfractionated heparin is 80-114 seconds. Blood specimen (specimen) 01/06/2014 11:30 AM EDT 01/06/2014 11:45 AM EDT Narrative Resulting Agency Comment Spec In Lab Huseyin Bauman MD HEMATOLOGY ORDERABLE S Performing Organization Address City/[facility]/ZIP Co de Phone Number [facility] * LDL Cholesterol, Direct (01/06/2014 11:30 AM EDT) LDL Chol Direct 13 <=99 mg/dL [facility] Comment: The National Cholesterol Education Program (NCEP) has set the following guidelines for LDL Cholesterol: Reference range: ?? Optimal: ?<100 mg/dL ?? Near Optimal/Above Optimal: ?? 100-129 mg/dL ?? Borderline high: ?130-159 mg/dL ?? High: ? 160-189 mg/dL ?? Very high: ?>hv=483 mg/dL TATI 2001: 285(19):3980-6695 Blood specimen (specimen) 01/06/2014 11:30 AM EDT 01/06/2014 11:45 AM EDT Narrative Resulting Agency Comment Spec In Lab Huseyin Bauman MD CHEMISTRY ORDERABLES [facility] * Echocardiogram Transthoracic(Leb) (01/06/2014 10:29 AM EDT) EF 56 HEARTLAB SYSTEM Anatomical Region Laterality Modality Other 01/06/2014 Narrative 01/06/2014 10:41 AM EDT Procedure: ? Transthoracic Echocardiogram Patient: ? PAMELA Gordon ? (Age): 1950(63) Med Rec#: ?[id number] ? Sex: ?M ? Site Loc: ?[facility] [place] ? Ht / Wt: ??185(cm)/92(kg) Pt. Loc: ? CCU ?BSA: ?2.17 Study Date: ?01/06/2014 ? Pt. Type: Inpatient Tape: ? Referring: Huseyin Bauman ([id number]) Referring: BRUCE Survey Engineer: Jodie Givens Diagnosis:CPT Code(s): ??Echo Full (20541), ??Spectral Doppler (67973), Color Doppler (04891), Indication(s): ??Tachycardia Rhythm: HR ?BP ?114/63 ?? [...] ? Mid-Inferior ?Normal ? Mid-Inferoseptal ?Normal ? [place]-Septal ? Normal ? [place]-Anterior ? Normal ? [place]-Lateral ?Normal ? [place]-Inferior ? Normal ? [place]-Tip ?Normal ? Chambers ?Value ?Units (Range) ? [...] 01/06/2014 10:41:12 Images reviewed and interpretation verified [facility] Procedure Note Warren Atkinson MD - 01/06/2014 Procedure: Transthoracic Echocardiogram Patient: PAMELA ROGERS(Age): 1950(63) Med Rec#: [id number] Sex: M Site Loc: [facility] [place] Ht / Wt: 185(cm)/92(kg) Pt. Loc: CCU BSA: 2.17 Study Date: 01/06/2014 Pt. Type: Inpatient Tape: Referring: Huseyin Bauman ([id number]) Referring: BRUCE Survey Engineer: Jodie Givens Diagnosis:CPT Code(s): Echo Full (73949), Spectral Doppler (88834), Color Doppler (53788), Indication(s): Tachycardia Rhythm: HR BP 114/63 SUMMARY: [...] Normal Mid-Posterolateral Normal Mid-Inferior Normal Mid-Inferoseptal Normal [place]-Septal Normal [place]-Anterior Normal [place]-Lateral Normal [place]-Inferior Normal [place]-Tip Normal Chambers Value Units (Range) EF Bi-p [...] 01/06/2014 10:41:12 Images reviewed and interpretation verified [facility] Huseyin Bauman MD ECHO ORDERABLES * EKG 12 Lead (01/06/2014 9:29 AM EDT) Ventricular rate 61 BPM MUSE SYSTEM Atrial Rate 61 BPM MUSE SYSTEM P-R Interval 210 ms MUSE SYSTEM QRS Duration 128 ms MUSE SYSTEM Q-T Interval 450 ms MUSE SYSTEM QTC Calculated (Bezet) 453 ms MUSE SYSTEM Calculated P [place] 36 degrees MUSE SYSTEM Calculated R [place] -51 degrees MUSE SYSTEM Calculated T [place] -62 degrees MUSE SYSTEM INTERPRETATION Sinus rhythm [...] PM EDT Huseyin Bauman MD ECG ORDERABLES MUSE SYSTEM * POCT Glucose (01/06/2014 8:28 AM EDT) POC Glucose 104 60 - 199 mg/dL [facility] Comment: Supplemental ranges: <140 mg/dL before meals <180 mg/dL all other times of the day Blood specimen (specimen) 01/06/2014 8:28 AM EDT 01/06/2014 8:28 AM EDT Huseyin Bauman MD POINT OF CARE TEST O RDERABLES Performing Organization Address [facility] Co de Phone Number [facility] * XR chest routine PA & [...] In Lab Huseyin Bauman MD URINE ORDERABLES [facility] * (ABNORMAL) Urinalysis with microscopic (01/06/2014 3:06 [...] Appearance UA Hazy(A) Clear CERNER MILLENNIUM Spec [place] UA 1.019 1.002 - 1.030 CERNER MILLENNIUM [...] In Lab Huseyin Bauman MD URINE ORDERABLES [facility] EMMANUELIUM * (ABNORMAL) Cardiac Enzymes (01/06/2014 2:50 AM EDT) Troponin-T 0.05(H) <=0.03 ng/mL [facility]TONENNIUM Comment: 0.03 ng/mL: Represents the 99th [...] consensus document of the Joint Society of Cardiology/[place] College [employer] Cardiology Committee for the redefinition of myocardial infarction. ??Journal of the [place] College [employer] 2000; 36: 959-969] CK, [...] ORDERABLE S [facility]ERDE[facility] MILLENNIUM * (ABNORMAL) Hemogram (01/06/2014 2:50 [...] Huseyin Bauman MD HEMATOLOGY ORDERABLE S [facility] BENITEZIUM * (ABNORMAL) Magnesium (01/06/2014 2:50 AM EDT) Magnesium 0.67(L) 0.69 - 1.07 mmol/L CERNER MILLENNIUM Blood specimen (specimen) 01/06/2014 2:50 AM EDT 01/06/2014 2:58 AM EDT Narrative Resulting Agency Comment Spec In Lab Huseyin Bauman MD CHEMISTRY ORDERABLES [facility] * (ABNORMAL) Lipid panel (fasting) (01/06/2014 2:50 AM EDT) Chol, Total 55 <=199 mg/dL [facility] Comment: Recommendations of the NCEP Adult Treatment Panel for the following risk cutoff thresholds for the [place] population: Desirable: <200 mg/dL Borderline High: 200-239 mg/dL High: > or = 240 mg/dL Triglycerides 148 <=149 mg/dL [facility] Comment: Reference Range: Normal triglycerides: ??<150 mg/dL Borderline high: ??150-199 mg/dL High: ??200-499 mg/dL Very high: ??>jb=286 mg/dL TATI 2001; 285(19):8826-2507 HDL 26(L) >=40 mg/dL [facility] Comment: Reference range: ??Low HDL: ?? < 40 mg/dL ??Normal: ?40-60 mg/dL ??Desirable: > 60 mg/dL TATI 2001; 285(19):4921-8152 LDL Cholesterol -1 <=99 mg/dL [facility] Comment: Reference range: ?? Optimal: ?<100 mg/dL ?? Near Optimal/Above Optimal: ?? 100-129 mg/dL ?? Borderline high: ?130-159 mg/dL ?? High: ? 160-189 mg/dL ?? Very high: ?>zk=340 mg/dL TATI 2001: 285(19):8403-2030 Chol/HDL Ratio 2.1 ratio MYRNA Webster [facility] Comment: A Cholesterol to HDL ratio below 4:1 is desirable. ??Studies suggest that increased CAD risk occurs at ratios above 5 for females and above 6 for men. ? [place] Heart Association ??(http://www.americanheart.org) ? Yenny Int Med, 1994; 121:641 ? AM J Med, 1998; 105(1A):48S Blood specimen (specimen) 01/06/2014 2:50 AM EDT 01/06/2014 2:58 AM EDT Narrative Resulting Agency Comment Spec In Lab Huseyin Bauman MD CHEMISTRY ORDERABLES [facility] [facility] * (ABNORMAL) Basic Metabolic Panel (non-fasting) (01/06/2014 2:50 AM EDT) Glucose Lvl 107 60 - 199 mg/dL [facility]ER MILLENNIUM Comment:Diabetes: >=200 mg/d L plus symptoms BUN 31(H) 10 - 20 mg/dL CERNER MILLENNIUM Creatinine 1.41 0.80 - 1.50 mg/dL [facility] MILLENNIUM Comment: Please note that the pediatric reference intervals supplied above were not validated at [facility]. Results from pediatric patients [...] the following links into your internet browser. [email or web address] Blood specimen (specimen) 01/06/2014 2:50 AM EDT 01/06/2014 2:58 AM EDT Narrative Resulting Agency Comment Spec In Lab Huseyin Bauman MD CHEMISTRY ORDERABLES Performing Organization Address [facility] Co de Phone Number MONICA PERALTA * EKG 12 Lead (01/06/2014 2:01 AM EDT) Ventricular rate 69 BPM MUSE SYSTEM Atrial Rate 69 BPM MUSE SYSTEM P-R Interval 212 ms MUSE SYSTEM QRS Duration 126 ms MUSE SYSTEM Q-T Interval 416 ms MUSE SYSTEM QTC Calculated (Bezet) 445 ms MUSE SYSTEM Calculated P [place] 18 degrees MUSE SYSTEM Calculated R [place] -55 degrees MUSE SYSTEM Calculated T [place] -70 degrees MUSE SYSTEM INTERPRETATION Sinus rhythm with 1st degree A-V block Left anterior fascicular block Non-specific intra-ventricula r conduction block T wave abnormality, consider inferior ischemia T wave abnormality, consider anterolateral ischemia Abnormal ECG Confirmed by MD Thomas Douglas ([id number]) on 01/07/2014 4:01:06 PM MUSE SYSTEM 01/06/2014 2:01 AM EDT 01/07/2014 4:01 PM EDT Unknown ECG ORDERABLES Performing Organization Address [facility] Co de Phone Number MUSE [...] Saldivar RN) 0847 (Given - Provider: Ervin Fontaine, NAHUN) [...] Saldivar RN) 0847 (Given - Provider: Ervin Fontaine, NAHUN) magnesium oxide (MAG-OX) tablet 400 mg (CANCELED) [...] inhibitor, Routine 0832 (Given - Provider: Ervin Fontaine, NAHUN)2011 (Given - Provider: Yamile Raya, NAHUN) 09 (Given - Provider: Loraine Saldivar, NAHUN)2008 (Given - Provider: Yamile Raya RN) 0848 (Given - Provider: Ervin Fontaine, NAHUN) rosuvastatin (CRESTOR) tablet 20 mg (CANCELED) 20 [...] Anxiety, Routine 0433 (Given - Provider: Teresita Lozano, NAHUN)2011 (Given - Provider: Yamile Raya, RN) 2138 (Given - Provider: Yamile Raya RN) fentaNYL 50mcg/mL injection () 25-50 mcg, Intravenous, EVERY 5 MIN PRN, Starting on Thu01/10/14 at 1444, Until Thu01/11/14 at 0043, Pain, As needed to induce or maintain moderate sedation per [facility] Moderate Sedation Protocol, Not to exceed 50 mcg/dose, 250 mcg/hr, or 20 mcg/kg per case., EP (Intra-Procedure), Routine 1510 (Given - Provider: Yaron Don RN)1518 (Given - Provider: Yaron Don RN)1534 (Given - Provider: Yaron Don RN)1550 (Given - Provider: Yaron Don RN)1604 (Given - Provider: Yaron Don RN)1615 (Given - Provider: Yaron Don RN)1642 (Given - Provider: Yaron Don RN)164 (Given - Provider: Yaron Don RN)1648 (Given - Provider: Yaron Don RN) midazolam (PF) (VERSED) 1 mg/mL injection 0.5-1 mg () 0.5-1 mg, Intravenous, EVERY 5 MIN PRN, Starting on Thu01/10/14 at 1444, Until Thu01/11/14 at 0043, Sleep, As needed to induce or maintain moderate sedation per [facility] [facility] Moderate Sedation Protocol, Not to exceed 1 mg per dose, 5mg/hour, or 0.2mg/kg per case., EP (Intra-Procedure), Routine 1511 (Given - Provider: Yaron Don RN)1518 (Given - Provider: Yaron Don RN)1524 (Given - Provider: Yaron Don RN)1551 (Given - Provider: Yaron Don RN)1602 (Given - Provider: Yaron Don RN)1616 (Given - Provider: Yaron Don RN)1642 (Given - Provider: Yaron Don RN)1644 (Given - Provider: Yaron Don RN)1647 (Given - Provider: Yaron Don RN)1656 (Given - Provider: Yaron Don, NAHUN) oxyCODONE-acetaminophen (PERCOCET) 5-325 mg per tablet 1 tablet 1 tablet, Oral, EVERY 4 HOURS PRN, Starting on Thu01/10/14 at 1823, Until Thu01/11/14 at 1539, Pain, May repeat in 30 minutes if inadequate (Total maximum daily dose acetaminophen is 4 gm), Cath (Recovery-Hospital Unit), Routine 1840 (Given - Provider: Loraine Saldivar RN - Comment: left chest pain s/p pacer)2008 (Given - Provider: Yamile Raya, RN) 0003 (Given - Provider: Yamile Raya RN)0351 (Given - Provider: Yamile Raya RN)0848 (Given - Provider: Ervin Fontaine, NAHUN)1332 (Given - Provider: Ervin Fontaine, NAHUN) zolpidem (AMBIEN) tablet 10 mg (CANCELED) 10 mg, Oral, NIGHTLY PRN, Starting on Thu01/06/14 at 0258, Until Thu01/11/14 at 1539, Sleep, Routine 0012 (Given - Provider: Teresita Lozano RN)2348 (Given - Provider: Yamile Raya, NAHUN) 0002 (Given - Provider: Yamile Raya RN) documented in this encounter Care Teams Private Branch Exchange Operator Relationship Specialty Start Date End Date Jennifer Haro MD PCP - General 01/07/12 01/30/14 documented as of this encounter
--- OUTSIDE RECORDS SUMMARY | 2023-11-03 01:31 | XMS_ITS | Encounter Summary ---
Author Organization [facility] [place] [address] Care Team Providers Care Proof Plate Maker Name Role Phone Jennifer Haro MD Primary Care Provider [phone] Encounter Details Date Type Department Care Team (Late st Contact Info) Description 01/06/2014 1:30 PM EDT - 01/06/2014 2:30 PM EDT [place] [address] Jaron Jarquin II, MD [facility] [place] [address] CARDIAC CATHETERIZATION Social History Tobacco Use Types Packs/Day Years [...] a 91 day new device check at [facility]. 4. Transtelephonic device follow [...] 8:10 AM Kit Self MD [facility] Follow-Up Appointments Date and Time Provider and Specialty Location Jan 13, 2014 @ 2:[address] Bingham [facility] Your Inpatient Doctor: Huseyin Bauman MD Your Primary Care Provider: JENNIFER HARO MD [phone] For questions regarding this document or issues relating to this hospitalization on the Medical Service, please contact your inpatient physician through the [facility] Block Splitter Operator . Issues afterhours and on weekends [...] times daily. 90 tablet 6 05/14/2013 01/27/2017 Voss-3 Fatty Acids (FISH OIL) 500 mg Cap Take by mouth daily. 01/14/2016 lamotrigine (LAMICTAL) 100 mg tablet Take 200 mg by mouth daily. 09/01/2018 alprazolam (XANAX XR) 3 mg 24 hr tablet Take 3 mg by mouth nightly. 09/18/2020 lactobac cmb #[id number] (PROBIOTIC & ACIDOPHILUS) 300-250 million cell-mg Cap [...] answered at this time. Patient discharged to [facility] with Daughter in stable condition. Wheelchair offered; patient elected to walk. * Edy Torres PA - 01/11/2014 12:10 PM EDT Patient Name: Shahnaz Santiago Patient Age: 63 y.o. Birthdate: 1950 Admit date: 01/06/2014 Attending Physician: Huseyin Bauman MD Cardiac Electrophysiology Post-Iimplant Device Interrogation Note Shahnaz Santiago is a 63 y.o. male is POD # 1 following implant of a dual chamber, [employer] ICD for sustained ventricular tachycardia. He [...] in situ V45.02 Device data: Ventricular electrode: [employer] [place] Model# 0292 Serial# [id number] Bipolar, steroid-tipped, active-fixation, single coil DF-4 lead Access: Left axillary vein Location: RV apex R wave, ICD: 9.6 mV Pacing threshold, ICD: 0.6 V at 0.5 ms Impedance, ICD: 913 ohms (74 ohms for shock vector) Pace the diaphragm at 10 V: No Atrial electrode: [employer] Dextrus Model# 4136 Serial# [id number] Bipolar, steroid-tipped, active-fixation IS-1 lead Access: Left axillary vein Location Right atrial appendage P wave, ICD: 4.3 mV Pacing threshold, pacemaker: 1.7 V at 0.5 ms Impedance, pacemaker: 538 ohms Pace the diaphragm at 10 V: No Pulse generator: [employer] Incepta Model# E162 Serial# [id number] DDDR ICD Location: Subcutaneous Defibrillation testing was [...] ~ 91 days. Provider: MAXIMO Leija Provider#: [id number] Consult attending physician: Estefanía Cross MD * Raul Salmeron RN - 01/11/2014 8:04 AM EDT Inpatient Post ICD Implant Teaching Note Verbal teaching was performed today msyf-pd-wjet with the patient including the following: -Brief generalized teaching of how ICDs function, and the patient's specific indication for ICD implant -Activity restrictions post ICD implant -Remote monitoring of the ICD via telephone (patient was given [facility] Latitude communicator today). -ICD insertion site [...] today Code Status: Full Code EDIE FLORES, Cardiology [...] of care and discharge planning. Nora Schaeffer BRAND SALES MANAGER CRC/Stacy Pabon MSN BSN RN CRC Office of Care Managment Pager [phone] * Yamile Raya RN - 01/10/2014 6:30 [...] One episode 7 beat run VT ~150bpm. Irmo warm, needed to urinate during that time. [...] in to convince him not to leave [facility] without an ICD. Will await his decision. [...] focal deficit Labs Recent Labs Basename 01/07/14 03401/06/14 0250 WBC 8.9 11.0* HGB 11.4* 13.0* HCT 34.5* 39.2* PLATELET 137* 152 Recent Labs Basename 01/07/14 03401/06/14 0250 NA 140 140 K 3.4* 4.4 [...] Encounter Note Patient Name: Shahnaz Santiago : [id number] MR#: [id number] Admit Date: 01/06/2014 1:50 AM Hospital Day 0 days Narrative: Shahnaz was happy and open to hha visit. Assessment: We had a long conversation of what he considered that has been militating against a health life-style: smoking. Moreover he was not a islam person based on his experiences over the years yet accepts prayers. Intervention and Outcome: We prayed for God's healing & strength. Follow-up: Yes Time in Direct Care: 35 mins Jennifer Zimmer Steven 01/06/2014 * Stacy Pabon RN - 01/06/2014 2:17 PM EDT Office of Care Management Clinical Cell Pourer Patient Name: Shahnaz Santiago : 1950, 63 yrs Admission Date: 01/06/2014 1:50 AM Attending: Huseyin Bauman MD Order to Admit: Signed Record reviewed and patient discussed with multidisciplinary team. Lives in [place], [place] 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 He is independent and drives. Insurance: No Insurance. (Guillermo Aaron RINK RAT notified) [facility] [employer] [facility] in [facility] Medical/Surgical:63 yo man with ASCVD s/p [...] Pabon MSN RN Clinical Resource Coordinators Phone: [phone] Pager [phone] documented in this encounter H&P Notes * Edy Berry MD - 01/07/2014 5:02 PM EDT Inpatient Cardiac Electrophysiology Follow-up Note Date of Consultation: 01/07/2014 Admit Date: 01/06/2014 Place of Service: Inpatient Unit Reason for Consult: We are seeing Shahnaz Santiago for the evaluation of ventricular tachycardia Patient Active Problem List Diagnosis ??? ASCVD (arteriosclerotic cardiovascular disease) Overview Note: ?? Heart catheterization in [facility] in 2007 with placement of a stent in an unspecified vessel ?? Repeat heart catheterization in 2008 with placement of stents to both the LAD and circumflex ?? Followup heart catheterization in 2008 showing stable results in both vessels ?? Her current chest discomfort in a somewhat atypical pattern beginning fall ?? Nuclear stress test at [facility] in [place], [place] May 02, 2013 during which he developed left shoulder and arm discomfort during submaximal exercise on the treadmill and after which he was converted to a pharmacologic test; nuclear imaging showed ejection fraction of 45% with a partially reversible inferior defect ?? Cath [facility] 05/13/2013: normal left main, mild diffuse disease [...] ASCVD (PCI to Cx, LAD; no hx HI) and tobacco use. Andressa recently had a [...] next morning, and he went to [facility], where ECG showed VT. He was cardioverted with return to NSR with 1st degree AVB, sub-mm STD in the lateral leads. His troponin was indeterminate. The patient was transferred to the [facility], where he has remained in NSR. [...] mg by mouth 2 times daily. ??? Voss-3 Fatty Acids (FISH OIL) 500 mg Cap Take by mouth daily. ??? multivitamin capsule Take 1 capsule by mouth daily. ??? LANCETS MISC by Misc.(Non-Drug; Combo Route) route. ??? lamotrigine (LAMICTAL) 100 mg tablet Take 100 mg by mouth daily. ??? alprazolam (XANAX XR) 3 mg 24 hr tablet Take 3 mg by mouth every morning. ? ? lactobac cmb #4-wzm-xddbgmuvxd (PROBIOTIC & ACIDOPHILUS) 300-250 million cell- mg [...] of cardiac arrest, pt believes due to HI at age of 53. Heavy smoker. His mother had PVD. 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 Heart catheterization in [facility] in 2007 with placement of a stent in an unspecified vessel ?? Repeat heart catheterization in 2008 with placement of stents to both the LAD and circumflex ?? Followup heart catheterization in 2008 showing stable results in both vessels ?? Her current chest discomfort in a somewhat atypical pattern beginning fall ?? Nuclear stress test at [facility] in [place], [place] May 02, 2013 during which he developed left shoulder and arm discomfort during submaximal exercise on the treadmill and after which he was converted to a pharmacologic test; nuclear imaging showed ejection fraction of 45% with a partially reversible inferior defect ?? Cath [facility] 05/13/2013: normal left main, mild diffuse disease [...] ASCVD (PCI to Cx, LAD; no hx HI) and tobacco use. [place] recently had a [...] next morning, and he went to [facility], where ECG showed VT. He was cardioverted with return to NSR with 1st degree AVB, sub-mm STD in the lateral leads. His troponin was indeterminate. The patient was transferred to the [facility], where he has remained in NSR. [...] mg by mouth 2 times daily. ??? Voss-3 Fatty Acids (FISH OIL) 500 mg Cap Take by mouth daily. ??? multivitamin capsule Take 1 capsule by mouth daily. ??? LANCETS MISC by Misc.(Non-Drug; Combo Route) route. ??? lamotrigine (LAMICTAL) 100 mg tablet Take 100 mg by mouth daily. ??? alprazolam (XANAX XR) 3 mg 24 hr tablet Take 3 mg by mouth every morning. ? ? lactobac cmb #9-ped-vytfeqhdma (PROBIOTIC & ACIDOPHILUS) 300-250 million cell- mg [...] of cardiac arrest, pt believes due to HI at age of 53. Heavy smoker. His mother had PVD. 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 He should ideally check pulse for any recurrent symptoms of VT (e.g. Weakness, SOB) and not delay hospital presentation as he did this time. Will discuss more with him in AM. * Huseyin Bauman MD - 01/06/2014 2:45 AM EDT Cardiology Admission History and Physical Patient Name: Shahnaz Santiago Service: [address] Responsible Attending: Huseyin Bauman MD, MD PCP: JENNIFER HARO MD PCP phone #: [phone] ID/Chief Complaint: 63 yo man with ASCVD [...] a chronic, has beenaffecting him 20 years, aljsfoygw-ht-xpbnvuwfzl, sternally located discomfort that is constant and [...] change from his baseline he went to [facility] ED for evaluation.There he was found to be tachycardic in the 160s, BP 108/64 and sating 96% on room air. An EKG revealed a monomorphic tachycardia. He was given versed 4mg, cardiovert with 120J biphasic. The patient's repeat EKG showed sinus rhythm with a 1st degree AV block NE of 214ms, as well as new T-wave inversions and sub 1mm ST depressions in V3-V6. His troponin was an indeterminate value 0.13 (0.06-0.59 =indeterminate). The patient was then transferred to [facility]. , OSH labs prior to transfer: 15.2 [...] cardiovascular disease) ?? Heart catheterization in [facility] in 2007 with placement of a stent in an unspecified vessel ?? Repeat heart catheterization in 2008 with placement of stents to both the LAD and circumflex ?? Followup heart catheterization in 2008 showing stable results in both vessels ?? Her current chest discomfort in a somewhat atypical pattern beginning fall ?? Nuclear stress test at [facility] in [place], [place] May 02, 2013 during which he developed left shoulder and arm discomfort during submaximal exercise on the treadmill and after which he was converted to a pharmacologic test; nuclear imaging showed ejection fraction of 45% with a partially reversible inferior defect ?? Cath [facility] 05/13/2013: normal left main, mild diffuse disease [...] Cap Take by mouth daily. Generic drug: Voss-3 Fatty Acids Refills: 0 glipiZIDE 5 mg [...] by mouth daily. Generic drug: lactobac cmb #5-xee-iskfbhydop Refills: 0 rosuvastatin 20 mg Tab Commonly [...] days pending evaluation of possible ischemia Kalyan Wasp, PGY-2 Team Pager # [phone] Cardiology Attending Addendum I have interviewed and [...] 01/12/2014 11:50 AM EDTAssociated Order(s): SCAN DOC: CORRECTIONS CADET documented in this encounter Miscellaneous Notes * [...] a chronic, has beenaffecting him 20 years, wzwybmhmy-my-gsxilymord, sternally located discomfort that is constant and [...] change from his baseline he went to [facility] ED for evaluation.There he was found to be tachycardic in the 160s, BP 108/64 and sating 96% on room air. An EKG revealed a monomorphic tachycardia. He was given versed 4mg, cardiovert with 120J biphasic. The patient's repeat EKG showed sinus rhythm with a 1st degree AV block NE of 214ms, as well as new T-wave inversions and sub 1mm ST depressions in V3-V6. His troponin was an indeterminate value 0.13 (0.06-0.59 =indeterminate). The patient was then transferred to [facility]. Hospital Course: # Ventricular tachycardia The patient [...] for an in-stent thrombosis (04/2013), an ischemic cdl a driver of his arrhythmia was a strong [...] (CL) of 1070 ms were as follows: NE: 230 ms HV: 40 ms (?) QRS: 110 ms (no manifest pre-excitation) QT: 450 ms 2) Atrial overdrive pacing (10 mA @ 2 ms) was accomplished from the low right atrium, and the atrioventricular (AV) Wenckebach block CL was observed at 500 ms. There was no pre-excitation or conduction aberrancy identified. The bniphaeb-eu-WVU < QRS-QRS just prior to the observed [...] Cap Take by mouth daily. Generic drug: Voss-3 Fatty Acids Refills: 0 glipiZIDE 5 mg [...] by mouth daily. Generic drug: lactobac cmb #2-jcs-bfsdcwsicu Refills: 0 rosuvastatin 20 mg Tab Commonly [...] Center 02/07/2014 8:10 AM Kit Self MD [facility] Cardio [facility] Follow-Up Appointments Date and Time Provider and Specialty Location Jan 13, 2014 @ 2:[address] [facility] Inpatient Doctor: Huseyin Bauman MD Your Primary Care Provider: JENNIFER HARO MD [phone] For questions regarding this document or issues relating to this hospitalization on the Medical Service, please contact your inpatient physician through the [facility] Block Splitter Operator . Issues afterhours and on weekends will be handled by the Hospitalist staff on-call. Future Appointments and Orders Future Appointments: Provider: Department: Dept Phone: Center: 02/07/2014 8:10 AM Kit Self MD Cardiology [phone] [facility] Joint Appt Nurse One Cardiology NAHUN Corrales [phone] [facility] 04/10/2014 9:30 AM Raul Salmeron RN Cardiology [phone] [facility] For questions regarding this document or issues relating to this hospitalization on the Medical Service, please contact your inpatient physician through the [facility] Block Splitter Operator . Issues afterhours and on weekends will be handled by the Television Station Manager staff on-call. Signed: HUSEYIN BAUMAN MD * [...] out pt CR program at [facility]. He was admitted with LLOYD and VT. Cardiac cath showed no ischemic etiology of sx. Being considered for ICD. Will refer him back to the [facility] prog at discharge * Miscellaneous - Provider, Scanning - 01/07/2014 2:41 PM EDT * Op Note - José Manuel Cole MD - 01/06/2014 5:34 PM EDT Electrophysiology Study Block Splitter Operator: José Manuel Cole MD Indication: Ventricular [...] (CL) of 1070 ms were as follows: NE: 230 ms HV: 40 ms (?) QRS: 110 ms (no manifest pre-excitation) QT: 450 ms 2) Atrial overdrive pacing (10 mA @ 2 ms) was accomplished from the low right atrium, and the atrioventricular (AV) Wenckebach block CL was observed at 500 ms. There was no pre-excitation or conduction aberrancy identified. The jaykcjcd-gg-WMZ < QRS-QRS just prior to the observed [...] AM EDT Hospital Encounter Non-[place] [address] Arrived documented as of this encounter Procedures Procedure Name Priority Date/Time Associated Diagnosis Comments CORRECTIONS CADET SCAN 01/12/2014 11:50 AM EDT POCT GLUCOSE [...] 7:03 AM EDT DIFFERENTIAL, AUTOMATED Routine 01/09/20 14 7:03 AM EDT CBC (WITH DIFF) Routine [...] Routine 01/07/20 3:58 PM EDT CARDIAC ENZYMES ([facility]) Routine 01/06/2014 12:40 PM EDT POCT GLUCOSE Routine 01/06/2014 12:15 PM EDT CARDIAC ENZYMES ([facility]) Routine 01/06/2014 11:30 AM EDT APTT STAT [...] in this encounter Results * SCAN DOC: CORRECTIONS CADET (01/12/2014 11:50 AM EDT) Anatomical Region Laterality Modality Other Narrative 01/12/2014 11:53 AM EDT Procedure Note Provider, Scanning - 01/12/2014 11:50 AM EDT Scanning Provider MEDIA MGR SCAN EXT O RDR/RSLT * (ABNORMAL) POCT Glucose (01/11/2014 11:55 AM EDT) POC Glucose 285(H) 60 - 199 mg/dL [facility] Comment: Supplemental ranges: <140 mg/dL before meals <180 mg/dL all other times of the day Blood specimen (specimen) 01/11/2014 11:55 AM EDT 01/11/2014 11:55 AM EDT Huseyin Bauman MD POINT OF CARE TEST O RDERABLES [facility] * XR chest routine PA & [...] Lab Huseyin Bauman MD HEMATOLOGY ORDERABLE S [facility] * Magnesium (01/11/2014 3:56 [...] intervals supplied above were not validated at [facility]. Results from pediatric patients should be interpreted [...] the following links into your internet browser. [email or web address] Blood specimen (specimen) 01/11/2014 3:56 AM EDT 01/11/2014 4:21 AM EDT Narrative Resulting Agency Comment Spec In Lab Huseyin Bauman MD CHEMISTRY ORDERABLES Performing Organization Address [facility] de Phone Number [facility] * POCT Glucose (01/11/2014 3:46 AM EDT) POC Glucose 137 60 - 199 mg/dL [facility] Comment: Supplemental ranges: <140 mg/dL before meals <180 mg/dL all other times of the day Blood specimen (specimen) 01/11/2014 3:46 AM EDT 01/11/2014 3:46 AM EDT Huseyin Bauman MD POINT OF CARE TEST O RDERABLES Performing Organization Address [facility] de Phone Number [facility] [employer] PharmaceuticalsSEPIDEHIUM * POCT Glucose (01/10/2014 11:57 PM EDT) POC Glucose 173 60 - 199 mg/dL [facility] Comment: Supplemental ranges: <140 mg/dL before meals <180 mg/dL all other times of the day Blood specimen (specimen) 01/10/2014 11:57 PM EDT 01/10/2014 11:57 PM EDT Huseyin Bauman MD POINT OF CARE TEST O RDERABLES Performing Organization Address [facility] de Phone Number MONICA ROSEAdviously [email or web address].GENE * (ABNORMAL) POCT Glucose (01/10/2014 8:31 PM EDT) POC Glucose 201(H) 60 - 199 mg/dL [facility] Comment: Supplemental ranges: <140 mg/dL before meals <180 mg/dL all other times of the day Blood specimen (specimen) 01/10/2014 8:31 PM EDT 01/10/2014 8:31 PM EDT Huseyin Bauman MD POINT OF CARE TEST O SAMPSON Performing Organization Address [facility] de Phone Number [employer] * POCT Glucose (01/10/2014 6:04 PM EDT) POC Glucose 164 60 - 199 mg/dL [facility] [email or web address] Comment: Supplemental ranges: <140 mg/dL before meals <180 mg/dL all other times of the day Blood specimen (specimen) 01/10/2014 6:04 PM EDT 01/10/2014 6:04 PM EDT Huseyin Bauman MD POINT OF CARE TEST O SAMPSON Performing Organization Address [facility] de Phone Number [employer] * Electrophysiology Procedure (01/10/2014 5:19 PM EDT) [...] with O-silk. Final Parameters: Ventricular electrode: ?? E-Blink [place] Model# 0292 Serial# [id number] ??Bipolar, steroid-tipped, active-fixation, ??single coil DF-4 lead ??Access: ? Left axillary vein ??Location: ?RV apex ??R wave, ICD: ? 9.6 mV ??Pacing threshold, ICD: ? 0.6 V at 0.5 ms ??Impedance, ICD: ? 913 ohms (74 ohms for shock vector) ??Pace the diaphragm at 10 V: ??No Atrial electrode: ?? E-Blink Dext[place] Model# 4136 Serial# [id number] ??Bipolar, steroid-tipped, active-fixation IS-1 lead ??Access: ? Left axillary vein ??Location ? Right atrial appendage ??P wave, ICD: ? 4.3 mV ??Pacing threshold, pacemaker: ??1.7 V at 0.5 ms ??Impedance, pacemaker: ??538 ohms ??Pace the diaphragm at 10 V: ??No Pulse generator: ? [employer] Incepta Model# E162 Serial# [id number] DDDR ICD ??Location: ?Subcutaneous Defibrillation testing was [...] major muscle withO-silk. Final Parameters: Ventricular electrode: E-Blink [place] Model# 0292 Serial# [id number] Bipolar, steroid-tipped, active-fixation, single coil DF-4 lead Access: Left axillary vein Location: RV apex R wave, ICD: 9.6 mV Pacing threshold, ICD: 0.6 V at 0.5 ms Impedance, ICD: 913 ohms (74 ohms for shock vector) Pace the diaphragm at 10 V: No Atrial electrode: [employer] Dextrus Model# 4136 Serial# [id number] Bipolar, steroid-tipped, active-fixation IS-1 lead Access: Left axillary vein Location Right atrial appendage P wave, ICD: 4.3 mV Pacing threshold, pacemaker: 1.7 V at 0.5 ms Impedance, pacemaker: 538 ohms Pace the diaphragm at 10 V: No Pulse generator: [employer] Incepta Model# E162 Serial# [id number] DDDR ICD Location: Subcutaneous Defibrillation testing was [...] POC Glucose 218(H) 60 - 199 mg/dL [facility] Comment: Supplemental ranges: <140 mg/dL before meals <180 mg/dL all other times of the day Blood specimen (specimen) 01/10/2014 11:39 AM EDT 01/10/2014 11:39 AM EDT Huseyin Helisch MD POINT OF CARE TEST O RDERABLES Performing Organization Address [facility] Co de Phone Number MONICA PERALTA * (ABNORMAL) POCT Glucose (01/10/2014 7:36 AM EDT) POC Glucose 242(H) 60 - 199 mg/dL [facility] Comment: Supplemental ranges: <140 mg/dL before meals <180 mg/dL all other times of the day Blood specimen (specimen) 01/10/2014 7:36 AM EDT 01/10/2014 7:36 AM EDT Huseyin Bauman MD POINT OF CARE TEST O RDMARY Performing Organization Address [facility] de Phone Number MONICA PERALTA * POCT Glucose (01/10/2014 4:25 AM EDT) POC Glucose 153 60 - 199 mg/dL [facility] Comment: Supplemental ranges: <140 mg/dL before meals <180 mg/dL all other times of the day Blood specimen (specimen) 01/10/2014 4:25 AM EDT 01/10/2014 4:25 AM EDT Huseyin Bauman MD POINT OF CARE TEST O SAMPSON Performing Organization Address [facility] de Phone Number MONICA PERALTA * (ABNORMAL) [...] ORDERABLE S CERDELMAR MILLENNIUM * (ABNORMAL) Hemogram (01/10/2014 4:21 AM [...] Bauman MD CHEMISTRY ORDERABLES Performing Organization Address City/[facility] Co de Phone Number CERNER MILLENNIUM * Basic Metabolic Panel (non-fasting) (01/10/2014 4:21 AM EDT) Glucose Lvl 161 60 - 199 mg/dL CERNER MILLENNIUM Comment:Diabetes: >=200 mg/d L plus symptoms BUN 17 10 - 20 mg/dL CERNER MILLENNIUM Creatinine 0.91 0.80 - 1.50 mg/dL CERNER MILLENNIUM Comment: Please note that the pediatric reference intervals supplied above were not validated at [facility]. Results from pediatric patients should be interpreted [...] the following links into your internet browser. [email or web address] Blood specimen (specimen) 01/10/2014 4:21 AM EDT 01/10/2014 4:36 AM EDT Narrative Resulting Agency Comment Spec In Lab Huseyin Bauman MD CHEMISTRY ORDERABLES Performing Organization Address [facility] Co de Phone Number [facility] * POCT Glucose (01/09/2014 11:25 PM EDT) POC Glucose 164 60 - 199 mg/dL [facility] [employer] Comment: Supplemental ranges: <140 mg/dL before meals <180 mg/dL all other times of the day Blood specimen (specimen) 01/09/2014 11:25 PM EDT 01/09/2014 11:25 PM EDT Huseyin Bauman MD POINT OF CARE TEST O RDERABLES Performing Organization Address [facility] Co de Phone Number [facility] * (ABNORMAL) POCT Glucose (01/09/2014 8:03 PM EDT) POC Glucose 204(H) 60 - 199 mg/dL [facility] Comment: Supplemental ranges: <140 mg/dL before meals <180 mg/dL all other times of the day Blood specimen (specimen) 01/09/2014 8:03 PM EDT 01/09/2014 8:03 PM EDT Huseyin Bauman MD POINT OF CARE TEST O RDERABLES Performing Organization Address [facility] Co de Phone Number [facility] * (ABNORMAL) POCT Glucose (01/09/2014 4:34 PM EDT) POC Glucose 231(H) 60 - 199 mg/dL [facility] Comment: Supplemental ranges: <140 mg/dL before meals <180 mg/dL all other times of the day Blood specimen (specimen) 01/09/2014 4:34 PM EDT 01/09/2014 4:34 PM EDT Huseyin Bauman MD POINT OF CARE TEST O RDERABLES Performing Organization Address [facility] de Phone Number [facility] * (ABNORMAL) POCT Glucose (01/09/2014 11:44 AM EDT) POC Glucose 280(H) 60 - 199 mg/dL [facility] Comment: Supplemental ranges: <140 mg/dL before meals <180 mg/dL all other times of the day Blood specimen (specimen) 01/09/2014 11:44 AM EDT 01/09/2014 11:44 AM EDT Huseyin Bauman MD POINT OF CARE TEST O RDERABLES Performing Organization Address [facility] de Phone Number [facility] * POCT Glucose (01/09/2014 7:51 AM EDT) POC Glucose 148 60 - 199 mg/dL [facility] Comment: Supplemental ranges: <140 mg/dL before meals <180 mg/dL all other times of the day Blood specimen (specimen) 01/09/2014 7:51 AM EDT 01/09/2014 7:51 AM EDT Huseyin Bauman MD POINT OF CARE TEST O RDERABLES Performing Organization Address [facility]/ZIP Co de Phone Number [facility] * Basic Metabolic Panel (non-fasting) (01/09/2014 4:32 AM EDT) Glucose Lvl 124 60 - 199 mg/dL CERNER MILLENNIUM Comment:Diabetes: >=200 mg/d L plus symptoms BUN 15 10 - 20 mg/dL [facility]ERN[facility] MILLENNIUM Creatinine 0.87 0.80 - 1.50 mg/dL [facility]ERNER MILLENNIUM Comment: Please note that the pediatric reference intervals supplied above were not validated at [facility]. Results from pediatric patients should be interpreted [...] the following links into your internet browser. [email or web address] Blood specimen (specimen) 01/09/2014 4:32 AM EDT 01/09/2014 4:38 AM EDT Narrative Resulting Agency Comment Spec In Lab Huseyin Bauman MD CHEMISTRY ORDERABLES [facility] Femta PharmaceuticalsCARONDELET ST[facility] JO[facility] HOS[facility]ITAL[facility] * (ABNORMAL) Differential, Automated (01/09/2014 4:32 AM [...] * (ABNORMAL) Hemogram (01/09/2014 4:32 AM EDT) Pathologist [facility] WBC 8.0 4.0 - 10.0 x10(3)/mcL CERNER MILLENNIUM RBC 4.83 4.63 - 6.08 x10(6)/mcL CERNER MILLENNIUM Hemoglobin 14.5 13.7 - 17.5 gm/dL [facility] Comment:Repeated & verified Hematocrit 43.0 40.0 - 51.0 % [facility] MCV 89.0 79.0 - 92.0 fL [facility] EMMANUELIUM MCH 30.0 25.6 - 32.2 pg [facility] MCHC 33.7 32.0 - 36.5 gm/dL [facility] Platelets 184 145 - 370 x10(3)/mcL [facility] EMMANUELIUM RDWSD 47.4(H) 35.0 - 46.0 fL [facility] RDWCV 14.8(H) 10.9 - 14.4 % [facility] MPV 10.3 9.0 - 12.0 fL [facility] Blood specimen (specimen) 01/09/2014 4:32 AM EDT 01/09/2014 4:38 AM EDT Narrative Resulting Agency Comment Spec In Lab Huseyin Bauman MD HEMATOLOGY ORDERABLE S [facility] * Magnesium (01/09/2014 4:32 AM EDT) Magnesium 0.76 0.69 - 1.07 mmol/L [facility] Blood specimen (specimen) 01/09/2014 4:32 AM EDT 01/09/2014 4:38 AM EDT Narrative Resulting Agency Comment Spec In Lab Huseyin Bauman MD CHEMISTRY ORDERABLES [facility] * POCT Glucose (01/09/2014 4:19 AM EDT) POC Glucose 114 60 - 199 mg/dL [facility] Comment: Supplemental ranges: <140 mg/dL before meals <180 mg/dL all other times of the day Blood specimen (specimen) 01/09/2014 4:19 AM EDT 01/09/2014 4:19 AM EDT Huseyin Bauman MD POINT OF CARE TEST O RDERABLES Performing Organization Address [facility] Co de Phone Number [facility]SECARONDE[facility] * POCT Glucose (01/09/2014 1:41 AM EDT) POC Glucose 155 60 - 199 mg/dL [facility] Comment: Supplemental ranges: <140 mg/dL before meals <180 mg/dL all other times of the day Blood specimen (specimen) 01/09/2014 1:41 AM EDT 01/09/2014 1:41 AM EDT Huseyin Bauman MD POINT OF CARE TEST O RDERABLES Performing Organization Address [facility]/[place] de Phone Number [facility]ON[facility] * (ABNORMAL) POCT Glucose (01/08/2014 11:19 PM EDT) POC Glucose 252(H) 60 - 199 mg/dL [facility] Comment: Supplemental ranges: <140 mg/dL before meals <180 mg/dL all other times of the day Blood specimen (specimen) 01/08/2014 11:19 PM EDT 01/08/2014 11:19 PM EDT Huseyin Bauman MD POINT OF CARE TEST O RDERABLES Performing Organization Address [facility] de Phone Number MONICA PERALTA * (ABNORMAL) POCT Glucose (01/08/2014 7:50 PM EDT) POC Glucose 205(H) 60 - 199 mg/dL [facility] Comment: Supplemental ranges: <140 mg/dL before meals <180 mg/dL all other times of the day Blood specimen (specimen) 01/08/2014 7:50 PM EDT 01/08/2014 7:50 PM EDT Huseyin Bauman MD POINT OF CARE TEST O RDERABLES Performing Organization Address [facility] Co de Phone Number MONICA BENITEZIUM * POCT Glucose (01/08/2014 5:17 PM EDT) POC Glucose 194 60 - 199 mg/dL [facility] Comment: Supplemental ranges: <140 mg/dL before meals <180 mg/dL all other times of the day Blood specimen (specimen) 01/08/2014 5:17 PM EDT 01/08/2014 5:17 PM EDT Huseyin Bauman MD POINT OF CARE TEST O RDERABLES Performing Organization Address [facility] Co de Phone Number [facility] * (ABNORMAL) POCT Glucose (01/08/2014 2:21 PM EDT) POC Glucose 230(H) 60 - 199 mg/dL [facility] Comment: Supplemental ranges: <140 mg/dL before meals <180 mg/dL all other times of the day Blood specimen (specimen) 01/08/2014 2:21 PM EDT 01/08/2014 2:21 PM EDT Huseyin Bauman MD POINT OF CARE TEST O RDERALOREE Performing Organization Address [facility] Co de Phone Number [facility] * (ABNORMAL) POCT Glucose (01/08/2014 12:04 PM EDT) POC Glucose 240(H) 60 - 199 mg/dL [facility] Comment: Supplemental ranges: <140 mg/dL before meals <180 mg/dL all other times of the day Blood specimen (specimen) 01/08/2014 12:04 PM EDT 01/08/2014 12:04 PM EDT Huseyin Bauman MD POINT OF CARE TEST O RDERABLES Performing Organization Address [facility] Co de Phone Number [facility] * POCT Glucose (01/08/2014 7:56 AM EDT) POC Glucose 125 60 - 199 mg/dL [facility] Comment: Supplemental ranges: <140 mg/dL before meals [...] Bauman MD CHEMISTRY ORDERABLES Performing Organization Address City/[facility] Co de Phone Number MONICA ROSEENNIUM [...] MD HEMATOLOGY ORDERABLE S Performing Organization Address City/[facility]/ZIP Co de Phone Number MONICA ROSEENNIUM * (ABNORMAL) Hemogram (01/08/2014 7:03 AM [...] MD HEMATOLOGY ORDERABLE S Performing Organization Address City/[facility]/ZIP Co de Phone Number MONICA BENITEZIUM * (ABNORMAL) Basic Metabolic Panel (non-fasting) (01/08/2014 7:03 AM EDT) Glucose Lvl 133 60 - 199 mg/dL CERNER MILLENNIUM Comment:Diabetes: >=200 mg/d L plus symptoms BUN 16 10 - 20 mg/dL CERNER MILLENNIUM Creatinine 0.74(L) 0.80 - 1.50 mg/dL CERNER MILLENNIUM Comment: Please note that the pediatric reference intervals supplied above were not validated at [facility]. Results from pediatric patients should be interpreted [...] the following links into your internet browser. [email or web address] Blood specimen (specimen) 01/08/2014 7:03 AM EDT 01/08/2014 7:08 AM EDT Narrative Resulting Agency Comment Spec In Lab Huseyin Bauman MD CHEMISTRY ORDERABLES [facility] [employer] * (ABNORMAL) POCT Glucose (01/08/2014 3:55 AM EDT) POC Glucose 219(H) 60 - 199 mg/dL [facility] Comment: Supplemental ranges: <140 mg/dL before meals <180 mg/dL all other times of the day Blood specimen (specimen) 01/08/2014 3:55 AM EDT 01/08/2014 3:55 AM EDT Huseyin Bauman MD POINT OF CARE TEST O RDERABLES Performing Organization Address [facility] Co de Phone Number [facility] * POCT Glucose (01/07/2014 11:51 PM EDT) POC Glucose 153 60 - 199 mg/dL [facility] Comment: Supplemental ranges: <140 mg/dL before meals <180 mg/dL all other times of the day Blood specimen (specimen) 01/07/2014 11:51 PM EDT 01/07/2014 11:51 PM EDT Huseyin Bauman MD POINT OF CARE TEST O [place] Performing Organization Address [facility] Co de Phone Number [facility] * POCT Glucose (01/07/2014 9:32 PM EDT) POC Glucose 190 60 - 199 mg/dL [facility] Comment: Supplemental ranges: <140 mg/dL before meals <180 mg/dL all other times of the day Blood specimen (specimen) 01/07/2014 9:32 PM EDT 01/07/2014 9:32 PM EDT Huseyin Bauman MD POINT OF CARE TEST O RDERALOREE Performing Organization Address [facility] Co de Phone Number [facility] * (ABNORMAL) POCT Glucose (01/07/2014 7:36 PM EDT) POC Glucose 223(H) 60 - 199 mg/dL [facility] Comment: Supplemental ranges: <140 mg/dL before meals <180 mg/dL all other times of the day Blood specimen (specimen) 01/07/2014 7:36 PM EDT 01/07/2014 7:36 PM EDT Huseyin Bauman MD POINT OF CARE TEST O RDERABLES Performing Organization Address [facility]/[place] de Phone Number MONICA PERALTA * POCT Glucose (01/07/2014 5:32 PM EDT) POC Glucose 180 60 - 199 mg/dL [facility] Comment: Supplemental ranges: <140 mg/dL before meals <180 mg/dL all other times of the day Blood specimen (specimen) 01/07/2014 5:32 PM EDT 01/07/2014 5:32 PM EDT Huseyin Bauman MD POINT OF CARE TEST O RDERABLES Performing Organization Address [facility] de Phone Number MONICA BENITEZIUM * (ABNORMAL) POCT Glucose (01/07/2014 1:24 PM EDT) POC Glucose 240(H) 60 - 199 mg/dL [facility] Comment: Supplemental ranges: <140 mg/dL before meals <180 mg/dL all other times of the day Blood specimen (specimen) 01/07/2014 1:24 PM EDT 01/07/2014 1:24 PM EDT Huseyin Bauman MD POINT OF CARE TEST O RDERABLES Performing Organization Address [facility] de Phone Number MONICA PERALTA * (ABNORMAL) Magnesium (01/07/2014 10:00 AM EDT) Magnesium 0.66(L) 0.69 - 1.07 mmol/L [facility] MILTONSEPIDEHIUM Blood specimen (specimen) 01/07/2014 10:00 AM EDT 01/07/2014 10:17 AM EDT Narrative Resulting Agency Comment Spec In Lab Huseyin Bauman MD CHEMISTRY ORDERABLES Performing Organization Address [facility] de Phone Number MONICA PERALTA * Potassium (01/07/2014 10:00 AM EDT) Pathologist [facility] Potassium 4.3 3.5 - 5.0 mmol/L CERDELMAR ROSEENNIUM Comment: Please note: ??Patients with WBC >100,000 may have falsely elevated Potassium levels. ??For accurate Potassium quantification in these patients send serum separator tube (gold top) for subsequent determinations. ??Contact the Clinical Chemistry Laboratory if there are any questions. Blood specimen (specimen) 01/07/2014 10:00 AM EDT 01/07/2014 10:17 AM EDT Narrative Resulting Agency Comment Spec In Lab Huseyin Bauman MD CHEMISTRY ORDERABLES STACYDELMAR BENITEZIUM * POCT Glucose (01/07/2014 9:23 AM EDT) Pathologist [facility] POC Glucose 178 60 - 199 mg/dL MONICA MILTONSEPIDEHIUM Comment: Supplemental ranges: <140 mg/dL before meals <180 mg/dL all other times of the day Blood specimen (specimen) 01/07/2014 9:23 AM EDT 01/07/2014 9:23 AM EDT Huseyin Bauman MD POINT OF CARE TEST O RDERABLES MONICA PERALTA * Differential, Automated (01/07/2014 3:40 AM EDT) Pathologist [facility] Neutrophils % 60.4 34.0 - 71.0 % [...] Bauman MD CHEMISTRY ORDERABLES Performing Organization Address [facility] de Phone Number CERNER MILLENNIUM * (ABNORMAL) Basic Metabolic Panel (non-fasting) (01/07/2014 3:40 AM EDT) Glucose Lvl 93 60 - 199 mg/dL CERNER MILLENNIUM Comment:Diabetes: >=200 mg/d L plus symptoms BUN 20 10 - 20 mg/dL CERNER MILLENNIUM Creatinine 0.81 0.80 - 1.50 mg/dL CERNER MILLENNIUM Comment: Please note that the pediatric reference intervals supplied above were not validated at [facility]. Results from pediatric patients should be interpreted [...] the following links into your internet browser. [email or web address] Blood specimen (specimen) 01/07/2014 3:40 AM EDT 01/07/2014 3:43 AM EDT Narrative Resulting Agency Comment Spec In Lab Huseyin Bauman MD CHEMISTRY ORDERABLES Performing Organization Address [facility] Phone Number [facility] * POCT Glucose (01/07/2014 3:39 AM EDT) POC Glucose 95 60 - 199 mg/dL [facility] Comment: Supplemental ranges: <140 mg/dL before meals <180 mg/dL all other times of the day Blood specimen (specimen) 01/07/2014 3:39 AM EDT 01/07/2014 3:39 AM EDT Huseyin Bauman MD POINT OF CARE TEST O RDERABLES Performing Organization Address [facility]/[place] de Phone Number [facility] * POCT Glucose (01/06/2014 11:40 PM EDT) POC Glucose 130 60 - 199 mg/dL [facility] Comment: Supplemental ranges: <140 mg/dL before meals <180 mg/dL all other times of the day Blood specimen (specimen) 01/06/2014 11:40 PM EDT 01/06/2014 11:40 PM EDT Huseyin Bauman MD POINT OF CARE TEST O RDERABLES Performing Organization Address [facility] Co de Phone Number [facility] * POCT Glucose (01/06/2014 9:23 PM EDT) POC Glucose 173 60 - 199 mg/dL [facility] Comment: Supplemental ranges: <140 mg/dL before meals <180 mg/dL all other times of the day Blood specimen (specimen) 01/06/2014 9:23 PM EDT 01/06/2014 9:23 PM EDT Huseyin Bauman MD POINT OF CARE TEST O RDERABLES Performing Organization Address [facility]/[place] de Phone Number [facility] * POCT Glucose (01/06/2014 6:42 PM EDT) POC Glucose 125 60 - 199 mg/dL [facility] Comment: Supplemental ranges: <140 mg/dL before meals <180 mg/dL all other times of the day Blood specimen (specimen) 01/06/2014 6:42 PM EDT 01/06/2014 6:42 PM EDT Huseyin Bauman MD POINT OF CARE TEST O RDERABLES Performing Organization Address [facility] de Phone Number [facility] * Electrophysiology Procedure (01/06/2014 5:20 PM [...] Modality Other Narrative 01/09/2014 7:14 AM EDT ?[facility] ? Cardiac Catheterization/Intervention Report ? Patient Name: Shahnaz Santiago ? Procedure Date: 01/06/2014 ? A #: [id number] ? Primary Physician: Britton, Jaron W. ? Case #: [id number] ? File Name: [id number] ? Catheterization Order Number: [id number] ? [facility] ? Final Report [place], [place] ? Patient Name: ? Shahnaz Santiago ? ID#: ?[id number] ? : ?1950 ? Procedure Date: ? January 06, 2014 ? Case #: ? 14- [id number] ? Room: ? 1 ? Case Physician: ? Jaron Jarquin M.D. ? Start: ?14:40 ?Fellow: ? Jennifer Nguyen Chiaco, ?Admission: ??01/06/2014 ?M.D. ? Referring Physician: ??Jennifer Haro M.D. ? Procedures: ?* Coronary Angiography ?* Left Heart Catheterization ?* Coronary Flow [place] Measurement ?* Coronary Instantaneous Wave-Free Ratio ?* [...] Britton, M.D. ? Electronically Signed by: Jaron Barclay. Britton, M.D. ? Report Finalized: 01/06/2014 ??16:11 ? Procedure Note Jaron Jarquin II, MD - 01/09/2014 [facility] Cardiac Catheterization/Intervention Report Patient Name: Shahnaz Santiago Procedure Date: 01/06/2014 A #: [id number] Primary Physician: Jaron Jarquin Case #: File Name: [id number] Catheterization Order Number: [id number] [facility] FinalReport [place], [place] Patient Name: Shahnaz Santiago ID#:[id number] :1950 Procedure Date: January 06, 2014 Case #: Room: 1 Case Physician: Jaron Jarquin M.D. Start: 14:40 Fellow: Jennifer Argueta, Admission:01/06/2014 [place] Referring Physician: Jennifer Haro M.D. Procedures: * Coronary Angiography * Left Heart Catheterization * Coronary Flow [place] Measurement * Coronary Instantaneous Wave-Free Ratio * [...] 12:40 PM EDT) Troponin-T 0.10(H) <=0.03 ng/mL [facility] Comment: 0.03 ng/mL: Represents the 99th percentile upper reference limit for normals. >0.03 ng/mL: Elevated cardiac troponin T level indicative of myocardial damage. Diagnosis of acute, evolving or recent HI requires a typical rise and gradual fall [...] consensus document of the Joint Society of Cardiology/[place] College [employer] Committee for the redefinition of myocardial infarction. ??Journal of the [place] College of Cardiology 2000; 36: 959-969] CK, Total 127 0 - 200 unit/L [facility] Blood specimen (specimen) 01/06/2014 12:40 PM EDT 01/06/2014 12:52 PM EDT Narrative Resulting Agency Comment Spec In Lab Huseyin Bauman MD CHEMISTRY ORDERABLES Performing Organization Address [facility]/ZIP Co de Phone Number [facility] * POCT Glucose (01/06/2014 12:15 PM EDT) POC Glucose 165 60 - 199 mg/dL [facility] Comment: Supplemental ranges: <140 mg/dL before meals <180 mg/dL all other times of the day Blood specimen (specimen) 01/06/2014 12:15 PM EDT 01/06/2014 12:15 PM EDT Huseyin Bauman MD POINT OF CARE TEST O RDERABLES Performing Organization Address [facility]/ZIP Co de Phone Number [facility] * Cardiac Enzymes (01/06/2014 11:30 AM EDT) Troponin-T Not Perf <=0.03 ng/mL [facility] Comment: Unable to quantitate due to sample hemolysis. ??Sample redraw suggested. Called Maximiliano, 01/06/14 12:30, blr 0.03 ng/mL: Represents the 99th percentile upper reference limit for normals. >0.03 ng/mL: Elevated cardiac troponin T level indicative of myocardial damage. Diagnosis of acute, evolving or recent HI requires a typical rise and gradual fall [...] consensus document of the Joint Society of Cardiology/[place] College of Cardiology Committee for the redefinition of myocardial infarction. ??Journal of the [place] College of Cardiology 2000; 36: 959-969] CK, Total 132 0 - 200 unit/L [facility] Blood specimen (specimen) 01/06/2014 11:30 AM EDT 01/06/2014 11:45 AM EDT Narrative Resulting Agency Comment Spec In Lab Huseyin Bauman MD CHEMISTRY ORDERABLES Performing Organization Address [facility] Co de Phone Number [facility] * (ABNORMAL) APTT (01/06/2014 11:30 AM EDT) PTT 48(H) 25 - 35 sec [facility] Comment: Recommended therapeutic PTT range for full dose unfractionated heparin is 80-114 seconds. Blood specimen (specimen) 01/06/2014 11:30 AM EDT 01/06/2014 11:45 AM EDT Narrative Resulting Agency Comment Spec In Lab Huseyin Bauman MD HEMATOLOGY ORDERABLE S Performing Organization Address [facility]/ZIP Co de Phone Number [facility] * LDL Cholesterol, Direct (01/06/2014 11:30 AM EDT) LDL Chol Direct 13 <=99 mg/dL [facility] Comment: The National Cholesterol Education Program (NCEP) has set the following guidelines for LDL Cholesterol: Reference range: ?? Optimal: ?<100 mg/dL ?? Near Optimal/Above Optimal: ?? 100-129 mg/dL ?? Borderline high: ?130-159 mg/dL ?? High: ? 160-189 mg/dL ?? Very high: ?>vt=579 mg/dL [facility]ATI 2001: 285(19):8816-2263 Blood specimen (specimen) 01/06/2014 11:30 AM EDT 01/06/2014 11:45 AM EDT Narrative Resulting Agency Comment Spec In Lab Huseyin Bauman MD CHEMISTRY ORDERABLES [facility] * Echocardiogram Transthoracic(Leb) (01/06/2014 10:29 AM EDT) EF 56 HEARTLAB SYSTEM Anatomical Region Laterality Modality Other 01/06/2014 Narrative 01/06/2014 10:41 AM EDT Procedure: ? Transthoracic Echocardiogram Patient: ? PAMELA Gordon ? (Age): 1950(63) Med Rec#: ?[id number] ? Sex: ?M ? Site Loc: [facility] ? Ht / Wt: ??185(cm)/92(kg) Pt. Loc: ? CCU ?BSA: ?2.17 Study Date: ?01/06/2014 ? Pt. Type: Inpatient Tape: ? Referring: Huseyin Bauman ([id number]) Referring: BRUCE Inbound Call Center Agent: Jodie Givens Diagnosis:CPT Code(s): ??Echo Full (11833), ??Spectral Doppler (66190), Color Doppler (16570), Indication(s): ??Tachycardia Rhythm: HR ?BP ?114/63 ?? [...] ? Mid-Inferior ?Normal ? Mid-Inferoseptal ?Normal ? [place]-Septal ? Normal ? [place]-Anterior ? Normal ? [place]-Lateral ?Normal ? [place]-Inferior ? Normal ? [place]-Tip ?Normal ? Chambers ?Value ?Units (Range) ? [...] 01/06/2014 10:41:12 Images reviewed and interpretation verified [facility] Cardiac Ultrasound Laboratory Procedure Note Warren Atkinson MD - 01/06/2014 Procedure: Transthoracic Echocardiogram Patient: PAMELA Gordon DOB(Age): 1950(63) Med Rec#: [id number] Sex: M Site Loc: [facility] Ht / Wt: 185(cm)/92(kg) Pt. Loc: CCU BSA: 2.17 Study Date: 01/06/2014 Pt. Type: Inpatient Tape: Referring: Huseyin Bauman ([id number]) Referring: BRUCE Inbound Call Center Agent: Jodie Givens Diagnosis:CPT Code(s): Echo Full (91790), Spectral Doppler (68498), Color Doppler (12855), Indication(s): Tachycardia Rhythm: HR BP 114/63 SUMMARY: [...] Normal Mid-Posterolateral Normal Mid-Inferior Normal Mid-Inferoseptal Normal [place]-Septal Normal [place]-Anterior Normal [place]-Lateral Normal [place]-Inferior Normal [place]-Tip Normal Chambers Value Units (Range) EF Bi-p [...] 01/06/2014 10:41:12 Images reviewed and interpretation verified [facility] Cardiac Ultrasound Laboratory Huseyin Bauman MD ECHO ORDERABLES * EKG 12 Lead (01/06/2014 9:29 AM EDT) Ventricular rate 61 BPM MUSE SYSTEM Atrial Rate 61 BPM MUSE SYSTEM P-R Interval 210 ms MUSE SYSTEM QRS Duration 128 ms MUSE SYSTEM Q-T Interval 450 ms MUSE SYSTEM QTC Calculated (Bezet) 453 ms MUSE SYSTEM Calculated P [place] 36 degrees MUSE SYSTEM Calculated R [place] -51 degrees MUSE SYSTEM Calculated T [place] -62 degrees MUSE SYSTEM INTERPRETATION Sinus rhythm [...] Glucose 104 60 - 199 mg/dL [email or web address] Comment: Supplemental ranges: <140 mg/dL before meals <180 mg/dL all other times of the day Blood specimen (specimen) 01/06/2014 8:28 AM EDT 01/06/2014 8:28 AM EDT Huseyin Bauman MD POINT OF CARE TEST O RDERABLES Performing Organization Address [facility] Co de Phone Number [facility] [email or web address] * XR chest routine PA & lateral [...] Comment Spec In Lab Huseyin aBuman MD URINE ORDERABLES CERNER MILLENNIUM * (ABNORMAL) Urinalysis with microscopic (01/06/2014 3:06 [...] Appearance UA Hazy(A) Clear CERNER MILLENNIUM Spec [place] UA 1.019 1.002 - 1.030 CERNER MILLENNIUM [...] Lab Huseyin Bauman MD URINE ORDERABLES [facility] BENITEZIUM * (ABNORMAL) Cardiac Enzymes (01/06/2014 2:50 AM EDT) Troponin-T 0.05(H) <=0.03 ng/mL [facility]ERNER MILLENNIUM Comment: 0.03 ng/mL: Represents the 99th percentile upper reference limit for normals. >0.03 ng/mL: Elevated cardiac troponin T level indicative of myocardial damage. Diagnosis of acute, evolving or recent HI requires a typical rise and gradual fall [...] consensus document of the Joint Society of Cardiology/[place] College [employer] Cardiology Committee for the redefinition of myocardial infarction. ??Journal of the [place] College of Cardiology 2000; 36: 959-969] CK, [...] Huseyin Bauman MD HEMATOLOGY ORDERABLE S [facility] MILLENNIUM * (ABNORMAL) Hemogram (01/06/2014 2:50 AM [...] In Lab Huseyin Bauman MD CHEMISTRY ORDERABLES [facility] * (ABNORMAL) Lipid panel (fasting) (01/06/2014 2:50 AM EDT) Chol, Total 55 <=199 mg/dL [facility] Comment: Recommendations of the NCEP Adult Treatment Panel for the following risk cutoff thresholds for the [place] population: Desirable: <200 mg/dL Borderline High: 200-239 mg/dL High: > or = 240 mg/dL Triglycerides 148 <=149 mg/dL [facility] Comment: Reference Range: Normal triglycerides: ??<150 mg/dL Borderline high: ??150-199 mg/dL High: ??200-499 mg/dL Very high: ??>lj=672 mg/dL TATI 2001; 285(19):8689-9815 HDL 26(L) >=40 mg/dL [facility] Comment: Reference range: ??Low HDL: ?? < 40 mg/dL ??Normal: ?40-60 mg/dL ??Desirable: > 60 mg/dL TATI 2001; 285(19):2273-6395 LDL Cholesterol -1 <=99 mg/dL [facility] Comment: Reference range: ?? Optimal: ?<100 mg/dL ?? Near Optimal/Above Optimal: ?? 100-129 mg/dL ?? Borderline high: ?130-159 mg/dL ?? High: ? 160-189 mg/dL ?? Very high: ?>si=809 mg/dL TATI 2001: 285(19):1664-7662 Chol/HDL Ratio 2.1 ratio [facility] Comment: A Cholesterol to HDL ratio below 4:1 is desirable. ??Studies suggest that increased CAD risk occurs at ratios above 5 for females and above 6 for men. ? [place] [employer] Association ??(http://www.americanheart.org) ? Yenny Int Med, 1994; 121:641 ? AM J Med, 1998; 105(1A):48S Blood specimen (specimen) 01/06/2014 2:50 AM EDT 01/06/2014 2:58 AM EDT Narrative Resulting Agency Comment Spec In Lab Huseyin Bauman MD CHEMISTRY ORDERABLES [facility]ERNER MILLENNIUM * (ABNORMAL) Basic Metabolic Panel (non-fasting) (01/06/2014 2:50 AM EDT) Glucose Lvl 107 60 - 199 mg/dL CERNER MILLENNIUM Comment:Diabetes: >=200 mg/d L plus symptoms BUN 31(H) 10 - 20 mg/dL CERNER MILLENNIUM Creatinine 1.41 0.80 - 1.50 mg/dL CERNER MILLENNIUM Comment: Please note that the pediatric reference intervals supplied above were not validated at [facility]. Results from pediatric patients should be interpreted [...] the following links into your internet browser. [email or web address] [email or web address] Blood specimen (specimen) 01/06/2014 2:50 AM EDT 01/06/2014 2:58 AM EDT Narrative Resulting Agency Comment Spec In Lab Huseyin Bauman MD CHEMISTRY ORDERABLES Performing Organization Address [facility] Co de Phone Number MONICA PERALTA * EKG 12 Lead (01/06/2014 2:01 AM EDT) Ventricular rate 69 BPM MUSE SYSTEM Atrial Rate 69 BPM MUSE SYSTEM P-R Interval 212 ms MUSE SYSTEM QRS Duration 126 ms MUSE SYSTEM Q-T Interval 416 ms MUSE SYSTEM QTC Calculated (Bezet) 445 ms MUSE SYSTEM Calculated P [place] 18 degrees MUSE SYSTEM Calculated R [place] -55 degrees MUSE SYSTEM Calculated T [place] -70 degrees MUSE SYSTEM INTERPRETATION Sinus rhythm with 1st degree A-V block Left anterior fascicular block Non-specific intra-ventricula r conduction block T wave abnormality, consider inferior ischemia T wave abnormality, consider anterolateral ischemia Abnormal ECG Confirmed by MD William, Navid ([id number]) on 01/07/2014 4:01:06 PM MUSE SYSTEM 01/06/2014 2:01 AM EDT 01/07/2014 4:01 PM EDT Unknown ECG ORDERABLES Performing Organization Address [facility] Co de Phone Number MUSE SYSTEM documented in this encounter Visit Diagnoses Not on filedocumented in this encounter Administered Medications Inactive Administered Medications - up to 3 most recent administrations Medication Order MAR Action Action Date Dose Rate Site adenosine 90 mg in sodium chloride 0.9% 90 mL infusion ([employer]) CONTINUOUS PRN, Starting on Thu01/06/14 at 1539, Until Thu01/11/14 at 1539, Cath (Intra-Procedure), Routine New Bag 01/06/2014 3:39 PM EDT 140 mcg/kg/min 776.2 mL/hr bivalirudin (ANGIOMAX) 250 mg in sodium chloride 0.9% 50 mL infusion ([employer]) CONTINUOUS PRN, Starting on Thu01/06/14 at 1523, Until Thu01/11/14 at 1539, Cath (Intra-Procedure), Routine New Bag 01/06/2014 3:23 PM EDT 161 mg/hr 32.2 mL/hr bivalirudin (ANGIOMAX) injection ONCE PRN, Starting on Thu01/06/14 at 1520, Until Thu01/11/14 at 1539, Intra-Operative (Intra-Procedure), Routine Given 01/06/2014 3:20 PM EDT 69 mg fentaNYL 50mcg/mL injection ONCE PRN, Starting on Thu01/06/14 at 1448, Until Thu01/06/14 at 1600, Pain, Intra-Operative (Intra-Procedure), Routine Given 01/06/2014 3:19 PM EDT 25 mcg Given 01/06/2014 2:48 PM EDT 25 mcg iohexol (OMNIPAQUE) 350 mg iodine/mL injection ONCE PRN, Starting on Thu01/06/14 at 1553, Until Thu01/11/14 at 1539, Per Protocol, Cath (Intra-Procedure), Routine Given 01/06/2014 3:53 PM EDT 65 mLs lidocaine (XYLOCAINE) 10 mg/mL (1 %) injection ONCE PRN, Starting on Thu01/06/14 at 1449, Until Thu01/11/14 at 1539, Cath (Intra-Procedure), Routine Given 01/06/2014 2:49 PM EDT 100 mg midazolam (PF) (VERSED) 1 mg/mL injection ONCE PRN, Starting on Thu01/06/14 at 1449, Until Thu01/06/14 at 1600, Sleep, Cath (Intra-Procedure), Routine Given 01/06/2014 2:49 PM EDT 1 mg documented in this encounter Active and [...] Yamile Raya RN)1201 (Given - Provider: Ervin Fontaine, NAHUN) ceFAZolin (ANCEF) 2g in dextrose 5% 50 [...] RN)2011 (Given - Provider: Yamile Raya RN) 09 (Given - Provider: Loraine Saldivar RN)2008 (Given - Provider: Yamile Raya RN) 0848 (Given - Provider: Ervin Fontaine, NAHUN) rosuvastatin (CRESTOR) tablet 20 mg (CANCELED) 20 mg, Oral, EVERY EVENING, First dose on Thu01/06/14 at 1700, Until Discontinued, Routine 1733 (Given - Provider: Ervin Fontaine RN) 1810 (Given - Provider: Loraine Saldivar, NAHUN) sodium chloride 0.9 % flush 5 mL (CANCELED) 5 mL, Intravenous, 2 TIMES DAILY, First dose on Thu01/06/14 at 0900, Until Discontinued, Routine 1154 (Given - Provider: Ervin Fontaine RN)2011 (Given - Provider: Yamile Raya RN) 0900 (Not Given - Provider: Loraine Saldivar RN - Reason: Contraindicated)2010 (Given - Provider: Yamiel Raya RN) 0900 (Not Given - Provider: [...] to induce or maintain moderate sedation per [facility] Moderate Sedation Protocol, Not to exceed 50 [...] to induce or maintain moderate sedation per [facility] Moderate Sedation Protocol, Not to exceed 1 [...] Provider: Yaron Don RN)1644 (Given - Provider: Darek Maroni, RN)1647 (Given - Provider: Yaron Don RN)1656 [...] Provider: Ervin Fontaine, NAHUN)1332 (Given - Provider: rEvin Fontaine RN) zolpidem (AMBIEN) tablet 10 mg (CANCELED) 10 mg, Oral, NIGHTLY PRN, Starting on Thu01/06/14 at 0258, Until Thu01/11/14 at 1539, Sleep, Routine 0012 (Given - Provider: Teresita Lozano RN)2348 (Given - Provider: Yamile Raya RN) 0002 (Given - Provider: Yamile Raya RN) documented in this encounter Care Teams Proof Plate Maker Relationship Specialty Start Date End Date Jennifer Haro MD PCP - General 01/07/12 01/30/14 documented as of this encounter
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
--- OUTSIDE RECORDS SUMMARY | 2023-11-03 01:31 | XMS_ITS | Encounter Summary ---
Author Organization [facility] Address [facility] [place] [address] Care Team Providers Care Traditional Maori Health Practitioner Name Role Phone Iggy Sevilla MD Primary Care Provider [phone] Encounter Details Date Type Department Care Team (Late st Contact Info) Description 12/17/2011 10:30 AM EDT - 12/17/2011 11:30 AM EDT Surgery [place] [address] Kyra Vyas MD [facility] DR [place]STRO[place] [address] EGD WITH BIOPSY (WRVU 2.39) Social History Tobacco Use Types Packs/Day Years Used Date Smoking Tobacco: Former Alcohol Use Standard Drinks/Week Comments No 0 (1 standard drink = 0.6 oz pur e alcohol) Sex and Gender Information Value Date Recorded Sex Assigned at Not on file Gender Identity Not on file Sexual Orientation Not on file documented as of this encounter Last Filed Vital Signs Vital Sign Reading Time Taken Comments Blood Pressure 123/72 12/17/2011 10:12 AM EDT Pulse 74 12/17/2011 10:12 AM EDT Temperature - - Respiratory Rate 16 12/17/2011 10:12 AM EDT Oxygen Saturation 95% 12/17/2011 10:12 AM EDT Inhaled Oxygen Concentration - - Weight - - Height - - Body Mass Index - - documented in this encounter Discharge Instructions * Discharge Instructions* Maura Bryant RN - 12/17/2011 10:47 AM EDT You may have received medications before and/or during your procedure which effects judgement and reaction time. Do not drive, operate machinery, drink alcoholic beverages or make important decisions for 24 hours. Be careful on stairs as you may be unsteady on your feet. You may eat a regular diet as tolerated. Do not smoke if you are alone. IV site-- slight redness or tenderness is normal. You may use a warm compress. If tenderness and redness increases or foul drainage occurs, please contact your MD/ Please call [phone] before 5pm with problems, questions or concerns. After 5pm call [phone] and ask to speak with the packer inspector cotton farmer. Discharge instructions reviewed with patient who expresses understanding. * Patient Instructions* Kyra Vyas MD - 12/17/2011 10:04 AM EDT Please see Recommendations in the Provation procedure report which is documented in the procedural note in [facility]. * Attachments The following attachments cannot be sent through Care Everywhere. * UPPER GI ENDOSCOPY: WHAT TO EXPECT AT HOME (AUSTRIAN) documented in this encounter Medications at Time of Discharge Medication Sig Dispensed Refills Start Date End Date omeprazole (PRILOSEC) 40 mg capsule Take 1 capsule by mouth daily. 30 capsule 12 11/17/2011 11/16/2012 CLOPIDOGREL BISULFATE (PLAVIX ORAL) Take by mouth. 05/10/2013 ZOLPIDEM TARTRATE (AMBIEN ORAL) Take by mouth. 05/10/2013 documented as of this encounter H&P Notes * Kyra Vyas MD - 12/17/2011 9:21 AM EDT See recent GI consult note; no interval change in H + P; clear lungs; rrr. Consent signed. documented in this encounter Miscellaneous Notes * Miscellaneous - Provider, Scanning - 12/18/2011 3:37 AM EDT * Miscellaneous - Provider, Scanning - 12/17/2011 9:48 AM EDT * Miscellaneous - Provider, Scanning - 12/17/2011 9:43 AM EDT documented in this encounter Plan of Treatment Upcoming Encounters Date Type Department Care Team (Late st Contact Info) Description 12/18/2023 10:00 AM EDT Hospital Encounter [place] [address] Arrived documented as of this encounter Procedures Procedure Name Priority Date/Time Associated Diagnosis Comments EGD WITH BIOPSY(BARBARA) Routine 12/18/2011 10:41 AM EDT SURGICAL PATHOLOGY REPORT Routine 12/17/2011 12:19 PM EDT SPECIMEN TO PATHOLOGY Routine 12/17/2011 10:07 AM EDT SPECIMEN TO PATHOLOGY Routine 12/17/2011 10:07 AM EDT SPECIMEN TO PATHOLOGY Routine 12/17/2011 10:07 AM EDT EGD WITH BIOPSY (WRVU 2.39) 12/17/2011 9:40 AM EDT gerd did not stop taking plavix has 3 heart stents POCT GLUCOSE Routine 12/17/2011 9:36 AM EDT UPPER GI ENDOSCOPY Routine 12/17/2011 9: 24 AM EDT documented in this encounter Results * SURGICAL PATHOLOGY REPORT (12/17/2011 12:19 PM EDT) Surgical Pathology Report ? [facility] ? Provider: ?? KYRA VYAS ? Pt. Name: ?? SHAHNAZ HENDRIX ? Acc #: ?[id number] ?Pt. ? Col Date: ?? 12/17/2011 ? /Sex: ?1950,(61 years),Male ? Rec Date: ?? 12/17/2011 ? LOC: ?4T ? SURGICAL PATHOLOGY ? ---Pathologic Diagnosis--- ? Endoscopic biopsies - ? A - Small intestine: ? Duodenal mucosa with no diagnostic abnormality. ? B - Stomach: ? Gastric antral and fundic gland mucosa with nonspecific reactive ? gastropathy. ? C - Esophagus: ? Squamous esophageal mucosa with hyperplastic basal layer and ? intraepithelial eosinophils, suggestive of reflux esophagitis. ? Squamocolumnar junctional mucosa (cardia and corpus type) with mild ? chronic inflammation. ??There is no evidence of intestinal metaplasia. ? CR-0 ? 12/20/11 ? XL ? 12/20/11 Verified by: ? Trino BARKSDALE, Chikis ? Pathologist ? (Electronic Signature) ? The attending pathologist whose signature appears on this report has ? reviewed all diagnostic slides and has edited the gross and/or ? microscopic portion of the report in rendering the final pathologic ? diagnosis. ? ---Microscopic Description--- ? Slides reviewed, microscopic description not recorded. ? ---Gross Description--- ? A - Labeled/Fixative: Small intestine, formalin. ? Qty/Size/Weight: ?Four, ranging from 0.3 cm to 0.6 cm in ? greatest dimension. ? Tissue Description: ?? Soft, pink tissues. ? Sections/Processin g: ??(T1) ? B - Labeled/Fixative: Stomach, formalin. ? Qty/Size/Weight: ?Five, averaging 0.3 cm. ? Tissue Description: ?? Soft, rizzo tissues. ? Sections/Processin g: ??(T1) ? C - Labeled/Fixative: Esophagus, formalin. ? [facility] ? Provider: ?? KYRA VYAS ? Pt. Name: ?? SHAHNAZ HENDRIX ? Acc #: ?[id number] ?Pt. ? Col Date: ?? 12/17/2011 ? /Sex: ?1950,(61 years),Male ? Rec Date: ?? 12/17/2011 ? LOC: ?4T ? SURGICAL PATHOLOGY ? Qty/Size/Weight: ?Two, averaging 0.3 cm. ? Tissue Description: ?? Soft, rizzo tissues. ? Sections/Processin g: ??(T1) ??bjm/SNS ? ---Clinical Information--- ? Specimen Submitted: ? A - Small intestine ? B - Stomach ? C - Esophagus ? Clinical History/Diagnosis: ? GERD, dyspepsia; ? A - ? celiac ? B - Erythema, ? HP ? C - Slightly irregular Z-line at 39 cm, ? [facility] 12/17/2011 12:1 9 PM EDT Kyra Vyas MD PATHOLOGY/CYTOLOGY O RDMARY Performing Organization Address [facility]/ZIP Co de Phone Number STACYDELMAR PERALTA * Specimen to Pathology (surgical or derm) (12/17/2011 10:07 AM EDT) AP Specimen 12/17/2011 10:0 7 AM EDT 12/17/2011 10:07 AM EDT Narrative MONICA MILTONSEPIDEHGENE - 12/17/2011 10:07 AM EDT Specimen requisition ordered. ??Separate Pathology report to follow Kyra Vyas MD PATHOLOGY/CYTOLOGY O RDMARY Performing Organization Address [facility] Co de Phone Number MONICA MILTONSEPIDEHGENE * Specimen to Pathology (surgical or derm) (12/17/2011 10:07 AM EDT) AP Specimen 12/17/2011 10:0 7 AM EDT 12/17/2011 10:07 AM EDT Narrative MONICA MILTONSEPIDEHGENE - 12/17/2011 10:07 AM EDT Specimen requisition ordered. ??Separate Pathology report to follow Kyra Vyas MD PATHOLOGY/CYTOLOGY O RDMARY Performing Organization Address [facility] Co de Phone Number MONICA MILTONSEPIDEHGENE * Specimen to Pathology (surgical or derm) (12/17/2011 10:07 AM EDT) AP Specimen 12/17/2011 10:0 7 AM EDT 12/17/2011 10:07 AM EDT Narrative MONICA MILTONSEPIDEHGENE - 12/17/2011 10:07 AM EDT Specimen requisition ordered. ??Separate Pathology report to follow Kyra Vyas MD PATHOLOGY/CYTOLOGY O RDMARY Performing Organization Address [facility]/ZIP Co de Phone Number MONICA MILTONZINA * POCT GLUCOSE LAB USE ONLY (12/17/2011 9:36 AM EDT) POC Glucose 181 60 - 199 mg/dL MONICA PERALTA Comment: Supplemental ranges: <110 mg/dL before meals <200 mg/dL all other times of the day Blood specimen (specimen) 12/17/2011 9:36 AM EDT 12/17/2011 9:36 AM EDT Kyra Vyas MD POINT OF CARE TEST O [place] MONICA PERALTA * UPPER GI ENDOSCOPY (12/17/2011 9:24 AM EDT) Pathologist [facility] UPPER GI ENDOSCOPY [facility] Endoscopy Patient Name: Shahnaz Hendrix ? Procedure Date: 12/17/2011 9:24 AM ? N: [id number] ? Date of : 1950 ? Age: 61 ? Order #: [id number] ? Procedure: ? Upper GI endoscopy Indications: ? Dyspepsia, Heartburn Providers: ? Kyra Vyas MD, Pavel Carreno, RN, ? Loraine Stewart, Nutter Up Referring MD: ?Dr. Mcdermott Requesting Provider: Baldemar Marin Medicines: ? Midazolam 2.5 mg IV, Fentanyl 125 ? micrograms IV, Diphenhydramine 50 mg ? IV, Benzocaine spray Complications: ? No immediate complications. Procedure: ? The procedure, indications, benefits, ? risks and alternatives were explained ? to the patient. Specifically ? discussed were potential ? complications including, but not ? limited to, bleeding, perforation, ? infection, missing a cancer, and ? adverse medication reactions. The ? Endoscope was introduced through the ? and advanced to the. The patient ? tolerated the procedure well. The ? upper GI endoscopy was accomplished ? without difficulty. ? Findings: ? The examined duodenum was normal. Biopsies were taken ? with a cold forceps for histology to rule out celiac ? disease given history of diarrhea (jar 1)Diffuse ? mildly erythematous mucosa with no bleeding was found ? in the gastric antrum. Biopsies were taken with a ? cold forceps for histology from throughout the ? stomach to rule out h. pylori (jar 2). Diffuse ? moderately erythematous mucosa with no bleeding was ? found in the gastric body. Biopsies were taken with a ? cold forceps for histology. ? - A small amount of retained food was noted in the ? upper body of the stomach (see pictures)The gastric ? fundus was normal. Biopsies were taken with a cold ? forceps for histology (jar 2). A small hiatus hernia ? was present extending from 41 to 39 cm. Just above ? this was the start of a non-circumferentia l ? Schatzki's ring.The Z-line was sligthly irregular and ? was found 39 cm from the incisors. Biopsies were ? taken with a cold forceps for histology to rule out ? Barretts. (jar 3). ? - There was grade A esophagitis.The middle third of ? the esophagus was normal. The upper third of the ? esophagus was normal. ? Impression: ?- Normal examined duodenum. This was ? biopsied. ? - Gastric mucosal abnormality in the ? antrum characterized by erythema. ? This was biopsied. ? - Gastric mucosal abnormality in the ? gastric body characterized by ? erythema. This was biopsied. ? - Normal gastric fundus. This was ? biopsied. ? - Hiatus hernia. ? - Start of Lane's ring. ? - Z-line irregular, 39 cm from the ? incisors. This was biopsied. ? - Normal middle third of esophagus. ? - Normal upper third of esophagus. Recommendation: ?- Await pathology results. ? - Letter will be sent to patient and ? referring provider in 8-10 days. ? - Return to primary care physician as ? previously scheduled. ? Attending Participation: ? I personally performed the entire procedure. ? Kyra Vyas MD 12/17/2011 10:10 AM ? Number of Addenda: 0 Note Initiated On: 12/17/2011 9:24 AM PROVATION 12/17/2011 9:24 AM EDT Iggy Sevilla MD GENERAL SURGICAL ORD ERABLES Performing Organization Address City/State/[facility] Co de Phone Number PROVATION documented in this encounter Visit Diagnoses Not on filedocumented in this encounter Administered Medications Inactive Administered Medications - up to 3 most recent administrations Medication Order MAR Action Action Date Dose Rate Site diphenhydrAMINE (BENADRYL) injection ONCE PRN, Starting on Thu12/17/11 at 0945, Until Thu12/17/11 at 1722, Itching, Intra-Operative (Intra-Procedure), Routine Given 12/17/2011 9:48 AM EDT 25 mg Given 12/17/2011 9:45 AM EDT 25 mg fentaNYL 50mcg/mL injection ONCE PRN, Starting on Thu12/17/11 at 0945, Until Thu12/17/11 at 1722, Pain, Intra-Operative (Intra-Procedure), Routine Given 12/17/2011 9:51 AM EDT 2 5 mcg Given 12/17/2011 9:48 AM EDT 50 mcg Given 12/17/2011 9:45 AM EDT 50 mcg midazolam (VERSED) injection ONCE PRN, Starting on Thu12/17/11 at 0945, Until Thu12/17/11 at 1722, Sleep, Intra-Operative (Intra-Procedure), Routine Given 12/17/2011 9:51 AM EDT 0 .5 mg Given 12/17/2011 9:48 AM EDT 1 mg Given 12/17/2011 9:45 AM EDT 1 mg sodium chloride 0.9% infusion 50 mL/hr, Intravenous, CONTINUOUS, Starting on Thu12/17/11 at 0930, Until Thu12/17/11 at 1722, Endoscopy (Day of Procedure) New Bag 12/17/2011 9:30 AM EDT 50 mL/hr 50 mL/hr documented in this encounter Active and Recently Administered Medications Times are shown in EDT. Continuous Medication Order 12/15/2011 12/16/2011 12/17/2011 sodium chloride 0.9% infusion (CANCELED) 50 mL/hr, Intravenous, CONTINUOUS, Starting on Thu12/17/11 at 0930, Until Thu12/17/11 at 1722, Endoscopy (Day of Procedure) 0930 (New Bag - Prov ider: Abril Culp RN) PRN Medication Order 12/15/2011 12/16/2011 12/17/2011 diphenhydrAMINE (BENADRYL) injection (CANCELED) ONCE PRN, Starting on Thu12/17/11 at 0945, Until Thu12/17/11 at 1722, Itching, Intra-Operative (Intra-Procedure), Routine 0945 (Given - Provid er: Pavel Carreno RN)0948 (Given - Provider: Pavel Carreno RN) fentaNYL 50mcg/mL injection (CANCELED) ONCE PRN, Starting on Thu12/17/11 at 0945, Until Thu12/17/11 at 1722, Pain, Intra-Operative (Intra-Procedure), Routine 0945 (Given - Provid er: Pavel Carreno RN)0948 (Given - Provider: Pavel Carreno RN)0951 (Given - Provider: Pavel Carreno RN) midazolam (VERSED) injection (CANCELED) ONCE PRN, Starting on Thu12/17/11 at 0945, Until Thu12/17/11 at 1722, Sleep, Intra-Operative (Intra-Procedure), Routine 0945 (Given - Provid er: Pavel Carreno RN)0948 (Given - Provider: Pavel Carreno RN)0951 (Given - Provider: Pavel Carreno RN) documented in this encounter Care Teams Traditional Maori Health Practitioner Relationship Specialty Start Date End Date Iggy Sevilla MD [address] [place] [id number] PCP - General 10/22/10 01/06/12 documented as of this encounter
--- OUTSIDE RECORDS SUMMARY | 2023-11-03 01:31 | XMS_ITS | Encounter Summary ---
Author Organization [facility] [place] [address] Care Team Providers Care Station Detective Name Role Phone Iggy Sevilla MD Primary Care Provider [phone] Encounter Details Date Type Department Care Team (Late st Contact Info) Description 11/17/2011 Telephone [place] [address] Peyton Cantu RN Social History Tobacco Use Types Packs/Day Years Used Date Smoking Tobacco: Never Assessed Sex and Gender Information Value Date Recorded Sex Assigned at Not on file Gender Identity Not on file Sexual Orientation Not on file documented as of this encounter Miscellaneous Notes * Telephone Encounter - Peyton Cantu RN - 11/17/2011 1:43 PM EDT Prescription for omeprazole written this AM brought to senior receptionist. Call to pt to confirm pharmacy name and location. Call to pharmacy to call in prescription. documented in this encounter Plan of Treatment Upcoming Encounters Date Type Department Care Team (Late st Contact Info) Description 12/18/2023 10:00 AM EDT Hospital Encounter Non-[place] [address] Arrived documented as of this encounter Visit Diagnoses Not on filedocumented in this encounter Care Teams Station Detective Relationship Specialty Start Date End Date Iggy Sevilla MD [address] [place] [address] [place] [address] PCP - General 10/22/10 01/06/12 documented as of this encounter
--- OUTSIDE RECORDS SUMMARY | 2023-11-03 01:31 | XMS_ITS | Encounter Summary ---
Author Organization [facility] [place] [address] Care Team Providers Care Compliance Attorney Name Role Phone Dewayne Mcdermott MD Primary Care Provider [phone] Reason for Visit * Reason Onset Date Comments Other 02/26/2012 no heartburn Encounter Details Date Type Department Care Team (Late st Contact Info) Description 02/26/2012 [place] [address] Baldemar Crockett APRN [facility] DR GASTROENTER[place] [address] Other (no heartburn) Social History Tobacco Use Types Packs/Day Years Used Date Smoking Tobacco: Former Alcohol Use Standard Drinks/Week Comments No 0 (1 standard drink = 0.6 oz pur e alcohol) Sex and Gender Information Value Date Recorded Sex Assigned at Not on file Gender Identity Not on file Sexual Orientation Not on file documented as of this encounter Miscellaneous Notes * Telephone Encounter - Mya Ferraro RN - 02/26/2012 3:15 PM EST Pt. Reports that prilosec BID has eliminated his reflux, watching his diet closely. documented in this encounter Plan of Treatment Upcoming Encounters Date Type Department Care Team (Late st Contact Info) Description 12/18/2023 10:00 AM EDT Hospital Encounter Non-Invasive [place] [address] Arrived documented as of this encounter Visit Diagnoses Not on filedocumented in this encounter Care Teams Compliance Attorney Relationship Specialty Start Date End Date Dewayne Mcdermott MD PCP - General 01/07/12 01/30/14 documented as of this encounter
--- OUTSIDE RECORDS SUMMARY | 2023-11-03 01:31 | XMS_ITS | Encounter Summary ---
Author Organization [facility] Address [facility] [place] [address] Care Team Providers Care Theology Professor Name Role Phone Dewayne Mcdermott MD Primary Care Provider [phone] Reason for Visit * Reason Comments Coronary Artery Disease Encounter Details Date Type Department Care Team (Latest Contact Info) Description 05/10/2013 9:10 AM EST Office Visit Cardiology at [address] [phone] Kit Self MD [facility] [address] CAD (coronary artery disease) (Primary Dx); ASCVD (arteriosclerotic cardiovascular disease); Atherosclerotic heart disease of [place] coronary artery with unstable angina pectoris; T2DM (type 2 diabetes mellitus) Discharge Disposition: Home Social History Tobacco Use [...] Sign Reading Time Taken Comments Blood Pressure 138/66 05/10/2013 9:08 AM EST Pulse 66 05/10/2013 9:08 AM EST Temperature - - Respiratory Rate 16 05/10/2013 9:08 AM EST Oxygen Saturation 100% 05/10/2013 9:08 AM EST Inhaled Oxygen Concentration - - Weight 94.3 kg (208 lb) 05/10/2013 9:08 AM EST Height 185.4 cm (6' 1) 05/10/2013 9:08 AM EST Body Mass Index 27.44 05/10/2013 9:08 AM EST documented in this encounter Progress Notes * Angelina Lopes LPN - 05/10/2013 10:32 AM EST Pre Cardiac Cath/PTCA Nursing Note Date of Cath:___05/13/13 Indication:____CAD chest pain Date of Labs:(within 30 days)__05/10/13 Date of EKG: 05/10/13 Medications: Stop Metformin 48 hour prior ( x ) Last dose___05/10/13 Insulin orders given Stop Coumadin __na___days prior ( )Last dose Does patient have a contrast or shellfish allergy? na If yes, was Prednisone RX given? Back Pain management: Understands potential for back pain.(x ) Identifies pain management strategies. (x ) Teach 0-10 pain intensity scale. (x ) Education: Patient understands purpose of cardiac cath/PTCA. (x ) Patient understands pre and post procedure care. (x ) Patient receives SDP pre-procedure instruction card. (x ) Patient understands/ receives privacy code. (x ) Comments: Patient nervous about having to feel the procedure.. Patient instructed to ask for something for discomfort. * Kit Self MD - 05/10/2013 10:25 AM EST Images from the original note were not included. [place] [phone] CARDIOLOGY OUTPATIENT CONSULTATION [facility] Marquez Juliozhang [id number] 05/10/2013 REFERRING PROVIDER: Dewayne Mcdermott CHIEF COMPLAINT: Chief Complaint Patient presents with ??? Coronary Artery Disease PROBLEM LIST Patient Active Problem List Diagnosis ??? T2DM (type 2 diabetes mellitus) ??? Esophageal reflux ??? IBS (irritable bowel syndrome) ??? ASCVD (arteriosclerotic cardiovascular disease) ?? Heart catheterization in [facility] in 2007 with placement of a stent in an unspecified vessel ?? Repeat heart catheterization in 2008 with placement of stents to both the LAD and circumflex ?? Followup heart catheterization in 2008 showing stable results in both vessels ?? Her current chest discomfort in a somewhat atypical pattern beginning fall ?? Nuclear stress test at [facility] in [place], [place] May 02, 2013 during which he developed left shoulder and arm discomfort during submaximal exercise on the treadmill and after which he was converted to a pharmacologic test; nuclear imaging showed ejection fraction of 45% with a partially reversible inferior defect ??? Diabetes mellitus ??? HTN (hypertension) ??? Elevated cholesterol MEDICATIONS: Current Outpatient Prescriptions Medication Sig Dispense Refill ??? nortriptyline (PAMELOR) 50 mg capsule Take 50 mg by mouth 2 times daily. ??? zolpidem (AMBIEN) 5 mg tablet Take 10 mg by mouth nightly as needed. ??? Hamilton-3 Fatty Acids (FISH OIL) 500 mg Cap Take by mouth daily. ??? multivitamin capsule Take 1 capsule by mouth daily. ??? LANCETS MISC by Misc.(Non-Drug; Combo Route) route. ??? lamotrigine (LAMICTAL) 100 mg tablet Take 100 mg by mouth daily. ??? alprazolam (XANAX XR) 3 mg 24 hr tablet Take 3 mg by mouth every morning. ? ? lactobac cmb #[id number] (PROBIOTIC & ACIDOPHILUS) 300-250 million cell- mg Cap Take by mouth daily. ??? aspirin 325 mg EC tablet Take 325 mg by mouth daily. ??? exenatide (BYETTA) 10 mcg/0.04 mL injection Inject 5 mcg subcutaneously 2 times daily (with meals). ??? metformin (GLUCOPHAGE) 1,000 mg tablet Take 1,000 mg by mouth 2 times daily (with meals). ??? nadolol (CORGARD) 20 mg tablet Take 20 mg by mouth daily. ??? FENOFIBRIC ACID, CHOLINE, (TRILIPIX ORAL) Take by mouth daily. ??? lisinopril-hydrochlorothiazide (PRINZIDE;ZESTORETIC) 10-12.5 mg per tablet Take 1 tablet by mouth daily. ??? hydrOXYzine (ATARAX) 25 mg tablet Take 25 mg by mouth 3 times daily as needed. ??? omeprazole (PRILOSEC) 40 mg capsule Take 40 mg by mouth 2 times daily. ??? fluocinolone 0.01 % cream Apply topically 2 times daily. ??? hydroCODone-acetaminophen (VICODIN) 5-500 mg per tablet [...] the tongue every 5 minutes as needed. ??? [DISCONTINUED] clopidogrel (PLAVIX) 75 mg tablet Take 75 mg by mouth daily. ??? [DISCONTINUED] CLOPIDOGREL BISULFATE (PLAVIX ORAL) Take by mouth. ??? [DISCONTINUED] ZOLPIDEM TARTRATE (AMBIEN ORAL) Take by mouth. ALLERGIES: Review of patient's allergies indicates no known allergies. HISTORY OF PRESENT ILLNESS: This 62-year-old man was referred for possible heart catheterization. He has a significant past cardiac history. He developed anginal symptoms while living in [place], [place] in 2007. He apparently proceeded to heart catheterization in 2007 and received a stent to review his LAD or circumflex. He had recurrent symptoms and in 2008 underwent repeat heart catheterization which led to repeat stenting in one of his vessels and stenting in another. He had the diagram which showed that in the end he had stenting of his mid LAD and mid circumflex. He apparently did well until this fall or early winter when he began having discomfort in his central chest. His discomfort is somewhat focal although occasionally involves associated discomfort in his left shoulder and arm. Symptoms have been atypical and a pattern of occurrence, primarily happening while at rest and not exertionally. His symptoms were brought to the attention of his primary care physician who made arrangements for a nuclear stress test which showed a reversible defect in the inferior wall. He has not tried nitroglycerin for his pain because it has caused headaches in the past. PAST MEDICAL HISTORY: Reviewed and updated as appropriate in the medical record. Please refer to detailed Problem List above for current listing of active medical problems. 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 He spent some time in the [employer]. He currently lives in [place] and is . He is a current smoker, currently smoking less than one pack per day. He does not drink alcoholic beverages and has a history of somewhat heavy drinking in the past but denies being an alcoholic. He drinks 2 caffeinated beverages per day. At this point he is not getting much exercise. FAMILY HISTORY: Noncontributory REVIEW OF SYSTEMS: General: He reports fairly frequent fatigue but denies insomnia, fever, et cetera. Eyes: [No visual loss, double vision, drainage, eye pain, or dry eyes.] ENT: He reports occasional dry mouth. Pulmonary: [No shortness of breath, cough, or hemoptysis.] Hem/Lymph: [No swollen glands, fever, or bleeding.] GI: [No abdominal pain, change in bowel habits, melena, nausea, vomiting or dysphagia.] : [No urethral discharge, dysuria, frequency, or nocturia.] Endocrine: [No hot spells, cold spells.] Musculoskeletal: He reports intermittent arthritic discomfort. Neuro: [No focal weakness, ataxia, confusion, paresthesias or headache.] Skin: [No rashes or dry skin.] Psych: He reports treated depression and suicidal ideation. Cardiac: See HPI PHYSICAL EXAMINATION: Exam Details: On examination today he appeared in no acute distress. His blood pressure is 138/66 and pulse 66. His weight was 208 pounds. His height was 6 foot 1 inch. His BMI was 27.5. Head exam was generally normal. There was no scleral icterus or corneal arcus. Mucus membranes were moist. Neck was supple and without jugular venous distension, thyromegaly, or carotid bruits. Carotids were easily palpable bilaterally. There was no adenopathy. Lungs were clear to auscultation and percussion, and with normal diaphragmatic excursion. No wheezes or rales were noted. Cardiac exam revealed the PMI to be normally situated and sized. The rhythm was regular and no extrasystoles were noted during several minutes of auscultation. The first and second heart sounds were normal and physiologic splitting of the second heart sound was noted. There were no murmurs, rubs, clicks, or gallops. Abdominal exam revealed normal bowel sounds. The abdomen was soft, non-tender, and without masses, organomegaly, or appreciable enlargement of the abdominal aorta. His extremities are nonedematous bilaterally. DATA: Twelve-lead EKG: This revealed normal sinus rhythm with frequent PACs with aberrant conduction. He had a nonspecific intraventricular conduction block. ASSESSMENT: This is a difficult situation. This gentleman symptoms are somewhat atypical in terms of the pattern of occurrence but are very reminiscent in his mind of the symptoms he had prior to hisstenting which very clearly relieved his symptoms. He in addition, he has had a stress test in the last week which showed a mixed fixed and reversible defect in his inferior wall which might suggest he has new disease in his right coronary artery. We reviewed the situation in detail. We talked about a variety of potential approach. I recommended heart catheterization so we can have some certaintyabout whether or not he has coronary artery disease and also his potential portal to deal with his anatomy and improving his symptoms. RECOMMENDATIONS: 1. He will hold his metformin after his evening dose tonight 2. Routine pre-heart catheterization labs today 3. Heart catheterization with coronary angiography and possible PCI is tentatively scheduled for Thursday of this week with a 10 AM arrival time Thank you for requesting this consultation. For questions, please feel free to contact me via any of the following mechanisms: Email: [email or web address] documented in this encounter Procedure Notes * Provider, Scanning - 05/13/2013 1:29 PM ESTAssociated Order(s): CARDIAC CATHETERIZATION documented in this encounter Plan of Treatment Upcoming Encounters Date Type Department Care Team (Late st Contact Info) Description 12/18/2023 10:00 AM EDT Hospital Encounter [place] [phone] Arrived documented as of this encounter Procedures Procedure Name Priority Date/Time Associated Diagnosis Comments CARDIAC CATHETERIZATION Routine 05/13/2013 1:12 PM EST CAD (coronary artery disease) ASCVD (arteriosclerotic cardiovascular disease) Atherosclerotic heart disease of [place] coronary artery with unstable angina pectoris DIFFERENTIAL, AUTOMATED Routine 05/10/2013 10:41 AM EST PROTHROMBIN TIME Routine 05/10/2013 10:4 1 AM EST CAD (coronary artery disease) ASCVD (arteriosclerotic cardiovascular disease) Atherosclerotic heart disease of [place] coronary artery with unstable angina pectoris CBC (WITH DIFF) Routine 05/10/2013 10:41 AM EST CAD (coronary artery disease) ASCVD (arteriosclerotic cardiovascular disease) Atherosclerotic heart disease of [place] coronary artery with unstable angina pectoris BASIC METABOLIC PANEL (NON-FASTING) Routine 05/10/2013 10:41 AM EST CAD (coronary artery disease) ASCVD (arteriosclerotic cardiovascular disease) Atherosclerotic heart disease of [place] coronary artery with unstable angina pectoris EKG 12-LEAD Routine 05/10/2013 9:20 AM EST CAD (coronary artery disease) documented in this encounter Results * Cardiac Catheterization (05/13/2013 1:12 PM EST) Anatomical Region Laterality Modality Other Narrative 05/13/2013 3:35 PM EST Procedure Note Provider, Scanning - 05/13/2013 1:29 PM EST Kit Self MD CARDIAC CATH ORDERAB LES * (ABNORMAL) Differential, Automated (05/10/2013 10:41 AM EST) Neutrophils % 36.8 34.0 - 71.0 % CERNER MILLENNIUM Neutr Abs (ANC) 3.61 1.50 - 6.30 x10(3)/mc L CERNER MILLENNIUM Lymphocytes % 49.1 19.0 - 53.0 % CERNER MILLENNIUM Lymphocytes Abs 4.8(H) 1.0 - 3.6 x10(3)/mc L CERNER MILLENNIUM Monocytes % 5.9 4.0 - 13.0 % CERNER MILLENNIUM Monocyte Abs 0.6 0.2 - 1.0 x10(3)/mc L CERNER MILLENNIUM Eosinophils % 7.5(H) 0.0 - 7.0 % CERNER MILLENNIUM Eosinophils Abs 0.7(H) 0.0 - 0.5 x10(3)/mc L CERNER MILLENNIUM Basophils % 0.5 0.0 - [...] x10(3)/mc L CERNER MILLENNIUM Blood specimen (specimen) 05/10/2013 10:41 AM EST 05/10/2013 10:53 AM EST Kit Self MD HEMATOLOGY ORDERABLE S MONICA BENITEZIUM * Prothrombin Time (05/10/2013 10:41 AM EST) PT 13.5 12.0 - 15.0 sec CERNER MILLENNIUM Comment: [facility] Transfusion Committee Guidelines: INR less than 2.0, PTT less than OR equal to 43.5 seconds, or Fibrinogen greater than or equal to 100 mg/dl indicate adequate procoagulant activity for hemostasis in patients without underlying bleeding disorders. INR 1.0 0.9 - 1.1 CERNER MILLENNIUM Blood specimen (specimen) 05/10/2013 10:41 AM EST 05/10/2013 10:53 AM EST Narrative Resulting Agency Comment Spec In Lab Kit Self MD HEMATOLOGY ORDERABLE S CERDELMAR BENITEZIUM * Basic Metabolic Panel (non-fasting) (05/10/2013 10:41 AM EST) Glucose Lvl 122 60 - 199 mg/dL CERNER MILLENNIUM Comment:Diabetes: >=200 mg/d L plus symptoms BUN 20 10 - 20 mg/dL CERNER MILLENNIUM Creatinine 1.16 0.80 - 1.50 mg/dL CERNER MILLENNIUM Comment: Please note that the pediatric reference intervals supplied above were not validated at [facility]. Results from pediatric patients should be interpreted in conjunction to the patient's age, height and muscle mass. Sodium 137 135 - 145 mmol/L CERNER MILLENNIUM Potassium [...] 5 - 15 mmol/L CERNER MILLENNIUM Calcium 10.2 8.5 - 10.5 mg/dL CERNER MILLENNIUM Estimated [...] the following links into your internet browser. http://www.nkdep.nih.gov/lab-evaluation.shtml http://www.kidney.org/professionals/ Blood specimen (specimen) 05/10/2013 10:41 AM EST 05/10/2013 10:53 AM EST Narrative Resulting Agency Comment Spec In Lab Kit Self MD CHEMISTRY ORDERABLES Performing Organization Address [facility] Co de Phone Number MONICA PERALTA * CBC (with Diff) (05/10/2013 10:41 AM EST) WBC 9.8 4.0 - 10.0 x10(3)/mcL CERNER MILLENNIUM RBC 5.08 4.63 - 6.08 x10(6)/mcL CERNER MILLENNIUM Hemoglobin 14.9 13.7 - 17.5 gm/dL CERNER MILLENNIUM Hematocrit 43.7 40.0 - 51.0 % CERNER MILLENNIUM MCV 86.0 79.0 - 92.0 fL CERNER MILLENNIUM MCH 29.3 25.6 - 32.2 pg CERNER MILLENNIUM MCHC 34.1 32.0 - 36.5 gm/dL CERNER MILLENNIUM Platelets 257 145 - 370 x10(3)/mcL CERNER MILLENNIUM RDWSD 43.5 35.0 - 46.0 fL CERNER MILLENNIUM RDWCV 14.0 10.9 - 14.4 % CERNER MILLENNIUM MPV 9.5 9.0 - 12.0 fL CERNER MILLENNIUM Blood specimen (specimen) 05/10/2013 10:41 AM EST 05/10/2013 10:53 AM EST Narrative Resulting Agency Comment Spec In Lab Kit Self MD HEMATOLOGY ORDERABLE S Performing Organization Address [facility] Co de Phone Number MONICA PERALTA * EKG 12 Lead (05/10/2013 9:20 AM EST) Ventricular rate 73 BPM MUSE SYSTEM Atrial Rate 73 BPM MUSE SYSTEM P-R Interval 202 ms MUSE SYSTEM QRS Duration 134 ms MUSE SYSTEM Q-T Interval 440 ms MUSE SYSTEM QTC Calculated (Bezet) 484 ms MUSE SYSTEM Calculated P [place] 43 degrees MUSE SYSTEM Calculated R [place] -62 degrees MUSE SYSTEM Calculated T [place] 14 degrees MUSE SYSTEM INTERPRETATION Sinus rhythm with Premature ventricular complexes Left axis deviation Non-specific intra-ventricular conduction block Poor R-wave progression Abnormal ECG No previous ECGs available I personally reviewed the tracing and edited the fellows interpretation Confirmed by fellow MD Pavel, Alex De La Rosa ([id number]) on 05/10/2013 11:12:18 AM Confirmed by MD Thomas Douglas ([id number]) on 05/10/2013 3:33:20 PM MUSE SYSTEM 05/10/2013 9:20 AM EST 05/10/2013 3:33 PM EST Kit Self MD ECG ORDERABLES MUSE SYSTEM documented in this encounter Visit Diagnoses Diagnosis CAD (coronary artery disease)- Primary Coronary atherosclerosis of unspecified type of vessel, [place] or graft ASCVD (arteriosclerotic cardiovascular disease) Unspecified cardiovascular disease Atherosclerotic heart disease of [place] coronary artery with unstable angina pectoris Coronary atherosclerosis of [place] coronary artery T2DM (type 2 diabetes mellitus) Type II or unspecified type diabetes mellitus without mention of complication, not stated as uncontrolled ASCVD (arteriosclerotic cardiovascular disease) Unspecified cardiovascular disease CAD (coronary artery disease) Coronary atherosclerosis of unspecified type of vessel, [place] or graft Atherosclerotic heart disease of [place] coronary artery with unstable angina pectoris Coronary atherosclerosis of [place] coronary artery documented in this encounter Care Teams Theology Professor Relationship Specialty Start Date End Date Dewayne Mcdermott MD PCP - General 01/07/12 01/30/14 documented as of this encounter
--- OUTSIDE RECORDS SUMMARY | 2023-11-03 01:31 | XMS_ITS | Encounter Summary ---
[place] [address] Care Team Providers Care Teacher Aide Clerical Name Role Phone Dewayne Mcdermott MD Primary Care Provider [phone] Reason for Visit * Reason Onset Date Comments Hematuria 05/16/2013 Encounter Details Date Type Department Care Team ([facility] Contact Info) Description 05/16/2013 Telephone Cardiology at [address] [phone] Rosanna Morrow RN Hematuria Social History Tobacco Use Types Packs/Day Years [...] Telephone Encounter - Rosanna Morrow RN - 05/16/2013 3:54 PM EST Patient's daughter calling to report That patient is in the ER right now because he having pain with urination and was having blood in his urine yesterday off and on and again today. She states he had a Urinary catheter placed when he had his heart catheterization. Discussed with daughter that sometimes hematuria occurs due t trauma from the urinary catheter but should clear with time. [facility] [place]Forwarded daughter to speak with medical records. documented in this encounter Plan of Treatment Upcoming Encounters Date Type Department Care Team (Late Contact Info) Description 12/18/2023 10:00 AM EDT Hospital Encounter Non-[place] [phone] Arrived documented as of this encounter Visit Diagnoses Not on filedocumented in this encounter Care Teams Teacher Aide Clerical Relationship Specialty Start Date End Date Dewayne Mcdermott MD PCP - General 01/07/12 01/30/14 documented as of this encounter
--- OUTSIDE RECORDS SUMMARY | 2023-11-03 01:31 | XMS_ITS | Encounter Summary ---
Author Organization [facility] [place] [address] Care Team Providers Care Literary Agent Name Role Phone Jennifer Haro MD Primary Care Provider [phone] Encounter Details Date Type Department Care Team (Late st Contact Info) Description 05/13/2013 10:55 AM EST - 05/13/2013 11:55 AM EST [place] [address] Jennifer Curry MD [facility] [place] [address] CARDIAC CATHETERIZATION Social History Tobacco Use Types [...] Sign Reading Time Taken Comments Blood Pressure 110/70 05/13/2013 10:46 AM EST Pulse 62 05/13/2013 10:46 AM EST Temperature 36.5 ??C (97.7 ??F) 05/13/2013 10:[address] Respiratory Rate 20 05/13/2013 10:46 AM EST Oxygen Saturation 99% 05/13/2013 10:46 AM EST Inhaled Oxygen Concentration - - Weight 94.3 kg (208 lb) 05/13/2013 10:46 AM EST Height 185.4 cm (6' 1) 05/13/2013 10:46 AM EST Body Mass Index 27.44 05/13/2013 10:46 AM EST documented in this encounter Discharge Instructions * Patient Instructions* Baldemar Martínez - 05/13/2013 1:26 PM EST Anti-coagulation follow up: N/A Call your doctor if: Chest pain, dyspnea, pain or swelling in legs occurs. If you have non-emergent questions between now and the time of your follow up appointments: During 8am-5pm Thursday through Thursday call [phone] to speak with a nurse in the cardiology clinic All other times call [phone] and ask to speak to the purchase order checker insulation and flooring assembler. Return to work: One week Driving: No driving for 48 hours after catheterization. Follow up Appointments: PCP Call for appointment in 1-2 weeks. Daylight Driller You should be seen in 3-4 weeks for follow up. Follow up with Dr Nicolette maguire jun 03. Home oxygen therapy: N/A Arrangements for VNA/home care: none * Attachments The following attachments cannot be sent through Care Everywhere. * CHEST PAIN (ANGINA): AFTER YOUR VISIT (FINNISH) * CARDIAC REHABILITATION: AFTER YOUR VISIT (FINNISH) * PERCUTANEOUS CORONARY INTERVENTION: WHAT TO EXPECT AT HOME (FINNISH) documented in this encounter Medications at Time of Discharge Medication Sig Dispensed Refills Start Date End Date multivitamin capsule Take 1 capsule by mouth daily. LANCETS MISC by Mis.(Non-Drug; Combo Route) route. metformin (GLUCOPHAGE) 1,000 mg tablet Take 1,000 mg by mouth 2 times daily (with meals). nitroGLYcerin (NITROSTAT) 0.[address] 0.4 mg under the tongue every 5 minutes as needed. Reported on 09/30/2016 aspirin 81 mg EC tablet Take 1 tablet by mouth daily. 30 tablet 3 05/14/2013 09/23/2013 clopidogrel (PLAVIX) 75 mg tablet Take 1 tablet by mouth daily. 30 tablet 11 05/14/2013 07/11/2015 pantoprazole (PROTONIX) 40 mg tablet Take 1 tablet by mouth 2 times daily. 90 tablet 6 05/14/2013 01/27/2017 nortriptyline (PAMELOR) 50 mg capsule Take 50 mg by mouth 2 times daily. 01/11/2014 zolpidem (AMBIEN) 5 mg tablet Take 10 mg by mouth nightly as needed. 06/14/2013 Charlotte-3 Fatty Acids (FISH OIL) 500 mg Cap Take by mouth daily. 01/14/2016 lamotrigine (LAMICTAL) 100 mg tablet Take 200 mg by mouth daily. 09/01/2018 alprazolam (XANAX XR) 3 mg 24 hr tablet Take 3 mg by mouth nightly. 09/18/2020 [id number] (PROBIOTIC & ACIDOPHILUS) 300-250 million cell-mg Cap Take by mouth daily. 07/11/2015 nadolol (CORGARD) 20 mg tablet Take 20 mg by mouth daily. 01/11/2014 FENOFIBRIC ACID, CHOLINE, (TRILIPIX ORAL) Take by mouth daily. 014 lisinopril-hydrochloro thiazide (PRINZIDE;ZESTORETIC) 10-12.5 mg per tablet Take 1 tablet by mouth daily. 01/11/2014 hydrOXYzine (ATARAX) 25 mg tablet Take 25 mg by mouth 3 times daily as needed. Reported on 09/30/2016 01/27/2017 fluocinolone 0.01 % cream Apply topically 2 times daily. 06/14/2013 glipizide (GLUCOTROL) 5 mg 24 hr tablet Take 10 mg by mouth daily. 01/27/2017 documented as of this encounter Progress Notes * Shyanne Casillas RN - 05/14/2013 2:17 PM EST The patient has met discharge criteria per policy. Discharge instruction reviewed and patient discharged to responsible adult. Patient???s pain level has been assessed and patient states that his/her level is tolerable at thistime. The After Visit Summary (AVS) and accompanying hand-outs have been reviewed with the patient including the cardiac rehab packet; the patient verbalizes understanding at this time. Opportunity for clarification provided. All new medications have been reviewed with the patient and the appropriate hand-outs have been given to the patient. Reportable sign and symptoms have been reviewed with patient. * Ely Villalpando RN - 05/13/2013 10:07 PM EST Cardiac walk done with no complaints of chest pain, slight SOB after stairs which resolved spontaneously and quickly. VS documented in doc flow sheets from [id number]. * Shyanne Casillas RN - 05/13/2013 3:53 PM EST Pt arrived from cardiac cath recovery on stretcher at 1430. Alert and oriented,denies chest pain ordyspnea, right groin site clean and intact, + pedal pulse, advertising traffic manager shows normal sinus rhythm with frequent PVC's. See flow sheets for further nursing assessment. * Baldemar Martínez - 05/13/2013 1:22 PM EST Inpatient Cardiology Discharge Day Note Patient Name: Marquez Hendrix Service: IC Responsible Attending: Dr. Curry Reason for continued hospitalization: Post PCI observation Active Problems: Active Hospital Problems Diagnosis ??? ASCVD (arteriosclerotic cardiovascular disease) Priority: High Resolved Hospital Problems Diagnosis Date Resolved No resolved problems to display. Interval History: Patient admitted following cardiac catheterization for overnight monitoring and observation. The patient did well overnight without significant chest pain or arrhythmias on telemetry. The right femoral access site was evaluated and the femoral pulse was palpable with no evidence of hematoma, bruit,or vascular compromise to the right foot. Cardiac biomarkers and a repeat ECG were reviewed. The patient ambulated with nursing without chest discomfort or exertional dyspnea. The patient met criteria for discharge home in stable condition. Review of Systems: Review of Systems Telemetry: HR: sinus rhythm with PVC's Meds: Scheduled Meds: ??? sodium chloride 0.9 % 5 mL Intravenous Q12H ??? [COMPLETED] diaZEPam 5 mg Oral Once ??? [COMPLETED] diphenhydrAMINE 25 mg Oral Once ??? sodium chloride 0.9 % 5 mL Intravenous Q12H ??? diaZEPam 5 mg Oral Once ??? diphenhydrAMINE 25 mg Oral Once Continuous Infusions: ??? sodium chloride 0.9% ??? sodium chloride 0.9% 200 mL/hr (05/13/13 1056) ??? sodium chloride 0.9% 150 mL/hr (05/13/13 1323) ??? [DISCONTINUED] sodium chloride 0.9% 500 mL (05/13/13 1210) PRN Meds:.midazolam (PF), atropine, fentaNYL (PF), [DISCONTINUED] fentaNYL (PF), [DISCONTINUED] midazolam (PF), [DISCONTINUED] lidocaine, [DISCONTINUED] sodium chloride 0.9%, [DISCONTINUED] fentaNYL (PF), [DISCONTINUED] heparin (porcine), [DISCONTINUED] clopidogrel, [DISCONTINUED] iohexol Physical Exam: Vital Signs: Last value Range last 8 hrs Temperature Temp: 36.4 ??C (97.5 ??F) Temp: [36.4 ??C (97.5 ??F)-36.5 ??C (97.7 ??F)] Heart Rate Heart Rate: 72 Heart Rate: [64-72] Blood Pressure BP: 111/53 mmHg BP: (111-125)/(53-72) Respiratory Rate Resp: 16 Resp: [16-18] SpO2 SpO2: 97 % SpO2: [97 %-98 %] Physical Exam Gen: No distress. Alert and oriented. Pleasant. Resp: CTA, no wheeze or crackles. CVS: S1, S2, No S3 or S4. No murmurs/Rubs Abd: Soft and non-tender Ext: 2+ right femoral pulse Access site right groin without hematoma or bruit. Lab Comments: Recent Results (from the past 24 hour(s)) POCT GLUCOSE Component Value Range POC Glucose 113 60 - 199 mg/dL Pertinent Radiographic/Diagnostic Results: No new tests Discharge Medication Checklist: Aspirin Yes Clopidogrel/prasugrel Yes Yung inhibitor/or ARB Yes Beta Carmen Yes Lipid Lowering Yes Nitroglycerin Yes Assessment: Marquez Hendrix is a 62 y.o. male with ASCVD who is status post PCI to mid-LAD lesion with a 3.0 X 12 JON. He has done well overnight and is stable for d/c home today after seen by cardiacrehab. Plan: 1. Okay for discharge this morning 2. Continue ASA indefinitely and plavix for at least 1 year 3.Agressive risk factors modifications 4.Diet and exercise 5.Smoking cessation he was counseled 6.Target LDL< 70 mg/dl documented in this encounter H&P Notes * Dagoberto Amaral MD - 05/13/2013 1:17 PM EST Marquez Hendrix [id number] 05/13/2013 62 y.o. Admission History and Physical PCP: JENNIFER HARO MD Referring: Jennifer Haro Date of Referral: 05/13/2013 I performed a history and physical exam of the patient and discussed the management of this patientwith Dr. Curry. Admission Diagnosis: ASCVD s/p PCI to LAD Date of Evaluation: 05/13/2013 Date of Admission: 05/13/2013 Problem List: Active Non-Hospital Problems Diagnosis ??? T2DM (type 2 diabetes mellitus) ??? Esophageal reflux ??? IBS (irritable bowel syndrome) ??? ASCVD (arteriosclerotic cardiovascular disease) ??? Diabetes mellitus ??? HTN (hypertension) ??? Elevated cholesterol HPI: This 62 y.o. male is admitted with a chief complaint of Chest pain. This 62 yo man with hx of DM, HTN, ASCVD sp stent to LAD and LCx who presents for cath after stresstest in the last week which showed a mixed fixed and reversible defect in his inferior wall. He describes CP as sharp, L sided, waxing and waning and provoking anxiety bc it reminds him of prior SD pain. At cath he was found to have an 80% lesion in his mid LAD in the region of previously placed stents. His LAD was large and wrapped around the apex supplying a significant portion of his inferior wall. This was felt to be consistent with his stress test results. He underwent successful PCI of this lesion and a 3.0 X 12 mm JON was placed. Post-procedure OCT demonstrated good stent apposition. He tolerated the procedure well. He will be admitted overnight for monitoring as per protocol. I have reviewed the available records, interviewed and examined the patient. This patient is admitted post PCI for IV hydration, pain management, access site management in the setting of anticoagulation, serial cardiac biomarker monitoring, telemetry monitoring, evaluation oftheir medical condition, and cardiac rehabilitation. ROS/PMHx/Fam Hx/Soc Hx: Reviewed, see outpatient note. Physical Exam: Vital signs: BP 110/70 Pulse 62 Temp 36.5 ??C (97.7 ??F) (Oral) Resp 20 Ht 185.4 cm (6' 1) Wt 94.348 kg (208 lb) BMI 27.44 kg/m2 SpO2 99% Physical Exam Gen: No distress. Alert and oriented. Pleasant. Resp: CTA, no wheeze or crackles. CVS: S1, S2, No S3 or S4. No murmurs/Rubs Abd: Soft and non-tender Ext: 2+ right femoral pulse DATA: Lab Results Component Value Date WBC 9.8 05/10/2013 HGB 14.9 05/10/2013 HCT 43.7 05/10/2013 MCV 86.0 05/10/2013 PLATELET 257 05/10/2013 Lab Results Component Value Date PT 13.5 05/10/2013 Lab Results Component Value Date INR 1.0 05/10/2013 Lab Results Component Value Date CREATININE 1.16 05/10/2013 BUN 20 05/10/2013 NA 137 05/10/2013 K 4.3 05/10/2013 CL 99 05/10/2013 CO2 26 05/10/2013 Assessment: 1. ASCVD s/p PCI to Mid-LAD Plan: 1. The working diagnosis and plan of management was reviewed with the patient and available family. 2. Questions were addressed. 3. Admit for IV hydration, serial cardiac enzymes, access site management, cardiac rehabilitation, asa and clopidogrel per protocol. Dagoberto Amaral MD Frame And Scrap Crusher Pager# [phone] 05/13/2013 * Raji oNvak - 05/13/2013 10:50 AM EST Pre-Cardiac Catheterization H&P Please see Dr. Self's note dated 05/10/13 for full details regarding reason for referral forcardiac catheterization. Briefly this is a 62 yo man with hx of DM, HTN, ASCVD sp stent to LAD and LCx who presents for cathafter stress test in the last week which showed a mixed fixed and reversible defect in his inferiorwall, suggesting he has new disease in his right coronary artery. He describes CP as sharp, L sided, waxing and waning and provoking anxiety bc it reminds him of prior SD pain. Filed Vitals: 05/13/13 1046 BP: 110/70 Pulse: 62 Temp: 36.5 ??C (97.7 ??F) Resp: 20 Lungs CTAB JVP < 7cm Cor: RRR s1 s2 no murmur or gallop R groin with 2+ femoral pulse LE's WWP Cr 1 INR 1.16 Consent in chart May require add'l anxiolytic medication during procedure documented in this encounter Procedure Notes * Provider, Scanning - 05/16/2013 11:07 PM ESTAssociated Order(s): SCAN DOC: SHEET FINISHER documented in this encounter Miscellaneous Notes * Miscellaneous - Provider, Scanning - 05/16/2013 11:07 PM EST * Miscellaneous - Provider, Scanning - 05/13/2013 2:23 PM EST * Discharge Summary - Hipolitostoneyabby Baldemar M - 05/13/2013 1:26 PM EST Inpatient Cardiology - Discharge Summary Patient Name: Marquez Hendrix Patient Age: 62 y.o. Birthdate: 1950 Admit date: 05/13/2013 Discharge date: 05/14/2013 Attending Physician: Kit Self MD Discharge Diagnoses (Hospital Problems) and Secondary Diagnoses (Chronic Problems): Active Hospital Problems Diagnosis ??? ASCVD (arteriosclerotic cardiovascular disease) Priority: High ?? Heart catheterization in [facility] in 2007 with placement of a stent in an unspecified vessel ?? Repeat heart catheterization in 2008 with placement of stents to both the LAD and circumflex ?? Followup heart catheterization in 2008 showing stable results in both vessels ?? Her current chest discomfort in a somewhat atypical pattern beginning fall ?? Nuclear stress test at [facility] in [place], [place] May 02, 2013 during which he developed left shoulder and arm discomfort during submaximal exercise on the treadmill and after which he was converted to a pharmacologic test; nuclear imaging showed ejection fraction of 45% with a partially reversible inferior defect ?? Cath [place] 05/13/2013: 3.0 X 12 mm JON to 80% mid-LAD lesion (in-stent restenosis) Resolved Hospital Problems Diagnosis Date Resolved No resolved problems to display. Active Non-Hospital Problems Diagnosis ??? T2DM (type 2 diabetes mellitus) ??? Esophageal reflux ??? IBS (irritable bowel syndrome) ??? Diabetes mellitus ??? HTN (hypertension) ??? Elevated cholesterol Operations/Major Procedures: Operations: Procedure(s) with comments: CARDIAC CATHETERIZATION - Procedure: Coronary Angiography Other Major Procedures: None History of Presentation: This 62 y.o. male is admitted with a chief complaint of Chest pain. This 62 yo man with hx of DM, HTN, ASCVD sp stent to LAD and LCx who presents for cath after stresstest in the last week which showed a mixed fixed and reversible defect in his inferior wall. He describes CP as sharp, L sided, waxing and waning and provoking anxiety bc it reminds him of prior SD pain. At cath he was found to have an 80% lesion in his mid LAD in the region of previously placed stents. His LAD was large and wrapped around the apex supplying a significant portion of his inferior wall. This was felt to be consistent with his stress test results. He underwent successful PCI of this lesion and a 3.0 X 12 mm JON was placed. Post-procedure OCT demonstrated good stent apposition. He tolerated the procedure well. He will be admitted overnight for monitoring as per protocol. Hospital Course: Patient admitted following cardiac catheterization for overnight monitoring and observation. The patient did well overnight without significant chest pain or arrhythmias on telemetry. The right femoral access site was evaluated and the femoral pulse was palpable with no evidence of hematoma, bruit,or vascular compromise to the right foot. Cardiac biomarkers and a repeat ECG were reviewed. The patient ambulated with nursing without chest discomfort or exertional dyspnea. The patient met criteria for discharge home in stable condition. Important Studies and Lab Data: Labs: Lab Results Component Value Date WBC 5.9 05/14/2013 HGB 12.2* 05/14/2013 HCT 37.4* 05/14/2013 PLATELET 185 05/14/2013 Recent Labs Basename 05/10/13 1041 INR 1.0 Lab Results Component Value Date NA 139 05/14/2013 K 4.1 05/14/2013 CL 105 05/14/2013 CO2 23 05/14/2013 BUN 21* 05/14/2013 CREATININE 0.99 05/14/2013 No results found for this basename: TSH in the last 7068 hours No results found for this basename: HA1C in the last 7068 hours Recent Labs Basename 05/14/13 0330 05/13/13 1300 CK 62 52 TROPONINT 0.05* <0.03 No results found for this basename: CHLPL, HDL, CHOLHDL, TRIG, LDLCHOL, LDLDIRECT Studies: None Pending Studies and Lab Data: None Discharge Conditions/Prognosis: Ambulatory without chest pain Discharge to: Home Discharge Medications: Current Discharge Medication List New Meds Dose Details clopidogrel (PLAVIX) 75 mg tablet 75 mg Take 1 tablet by mouth daily. Qty: 30 tablet Refills: 11 pantoprazole (PROTONIX) 40 mg tablet 40 mg Take 1 tablet by mouth 2 times daily. Qty: 90 tablet Refills: 6 Continued medications with revised dosing Dose Details aspirin 81 mg EC tablet 81 mg Take 1 tablet by mouth daily. Qty: 30 tablet Refills: 3 Continued medications, unchanged Dose Details nortriptyline (PAMELOR) 50 mg capsule 50 mg Take 50 mg by mouth 2 times daily. zolpidem (AMBIEN) 5 mg tablet 10 mg Take 10 mg by mouth nightly as needed. Charlotte-3 Fatty Acids (FISH OIL) 500 mg Cap Take by mouth daily. multivitamin capsule 1 capsule Take 1 capsule by mouth daily. LANCETS MISC by Misc.(Non-Drug; Combo Route) route. lamotrigine (LAMICTAL) 100 mg tablet 100 mg Take 100 mg by mouth daily. alprazolam (XANAX XR) 3 mg 24 hr tablet 3 mg Take 3 mg by mouth every morning. lactobac b #[id number] (PROBIOTIC & ACIDOPHILUS) 300-250 million cell-mg Cap Take by mouth daily. exenatide (BYETTA) 10 mcg/0.04 mL injection 5 mcg Inject 5 mcg subcutaneously 2 times daily (with meals). metformin (GLUCOPHAGE) 1,000 mg tablet 1,000 mg Take 1,000 mg by mouth 2 times daily (with meals). nadolol (CORGARD) 20 mg tablet 20 mg Take 20 mg by mouth daily. FENOFIBRIC ACID, CHOLINE, (TRILIPIX ORAL) Take by mouth daily. lisinopril-hydrochlorothiazide (PRINZIDE;ZESTORETIC) 10-12.5 mg per tablet 1 tablet Take 1 tablet by mouth daily. hydrOXYzine (ATARAX) 25 mg tablet 25 mg Take 25 mg by mouth 3 times daily as needed. fluocinolone 0.01 % cream Apply topically 2 times daily. hydroCODone-acetaminophen (VICODIN) 5-500 mg per tablet 1 tablet Take 1 tablet by mouth every 6 hours as needed. glipizide (GLUCOTROL) 5 mg 24 hr tablet 5 mg Take 5 mg by mouth daily. cyclobenzaprine (FLEXERIL) 10 mg tablet 10 mg Take 10 mg by mouth 2 times daily as needed. nitroGLYcerin (NITROSTAT) 0.4 mg SL tablet 0.[address] 0.4 mg under the tongue every 5 minutes as needed. Medications STOPPED Dose omeprazole (PRILOSEC) 40 mg capsule 40 mg UNREVIEWED medications Dose Details aspirin 325 mg EC tablet 325 mg Qty: 30 tablet Refills: 3 Updated Allergies/ADRs: No Known Allergies Follow-up Recommendations for Providers: Continue ASA indefinitely and Clopidogrel for at least 1 year Agressive risk factors modifications Encourage to diet and exercise Smoking cessation counseling Target LDL< 70 mg/dl Instructions Given to Patient at Discharge: Provider Instructions Anti-coagulation follow up: N/A Call your doctor if: Chest pain, dyspnea, pain or swelling in legs occurs. If you have non-emergent questions between now and the time of your follow up appointments: During 8am-5pm Thursday through Thursday call [phone] to speak with a nurse in the cardiology clinic All other times call [phone] and ask to speak to the purchase order checker insulation and flooring assembler. Return to work: One week Driving: No driving for 48 hours after catheterization. Follow up Appointments: PCP Call for appointment in 1-2 weeks. Daylight Driller You should be seen in 3-4 weeks for follow up. Follow up with Dr Nicolette maguire jun 03. Home oxygen therapy: N/A Arrangements for VNA/home care: none General Instructions None Future Appointments and Orders Future Appointments: Provider: Department: Dept Phone: Center: 06/14/2013 9:40 AM Kit Self MD Cardiology [phone] [facility] Joint Appt Nurse One Cardiology NAHUN Corrales [phone] [facility] Future Orders Please Complete By Expires Cardiac Catheterization [CATH01 Custom] Process Instructions: Scheduling Instructions: Comments: Procedure: Coronary Angiography Questions: Responses: Is the patient allergic to injectable contrast agents or x-ray dye? No Add on case? Does patient require sedation? Does patient have a history of diabetes? No GA rationale: Is the patient on Coumadin? No Is the patient allergic to latex? No Surgeon requested Anesthesia Type for surgery IV Conscious Sedation Should this service/procedure be billed to the research sponsor? Does patient have a history of kidney failure or dialysis? No Provider Contact Information: Dr. Antoinette Amaral Section of Cardiology [facility] [phone] Discharge References/Attachments: Discharge References/Attachments None Signed: Baldemar Martínez DATE: 05/14/2013 documented in this encounter Plan of Treatment Upcoming Encounters Date Type Department Care Team (Late st Contact Info) Description 12/18/2023 10:00 AM EDT Hospital Encounter Non-Invasive [place] [address] Arrived documented as of this encounter Procedures Procedure Name Priority Date/Time Associated Diagnosis Comments SHEET FINISHER SCAN 05/16/2013 11:07 PM EST POCT GLUCOSE Routine 05/14/2013 12:08 PM EST POCT GLUCOSE Routine 05/14/2013 7:57 AM EST EKG 12-LEAD Routine 05/14/2013 7:40 AM EST CAD (coronary artery disease) BMP W/FASTING GLUCOSE Routine 05/14/2013 3:30 AM EST DIFFERENTIAL, AUTOMATED Routine 05/14/2013 3:30 AM EST CARDIAC ENZYMES ([place]/CGP) Routine 05/14/2013 3:30 AM EST CBC (WITH DIFF) Routine 05/14/2013 3:30 AM EST POCT GLUCOSE Routine 05/14/2013 3:10 AM EST POCT GLUCOSE Routine 05/13/2013 11:40 PM EST POCT GLUCOSE Routine 05/13/2013 10:14 PM EST POCT GLUCOSE Routine 05/13/2013 8:52 PM EST POCT GLUCOSE Routine 05/13/2013 3:55 PM EST EKG 12-LEAD Routine 05/13/2013 1:57 PM EST CAD (coronary artery disease) CARDIAC ENZYMES ([place]/CGP) STAT 05/13/2013 1:00 PM EST POCT GLUCOSE Routine 05/13/2013 10:46 AM EST documented in this encounter Results * SCAN DOC: SHEET FINISHER (05/16/2013 11:07 PM EST) Anatomical Region Laterality Modality Other Narrative 05/16/2013 11:09 PM EST Procedure Note Provider, Scanning - 05/16/2013 11:07 PM EST Scanning Provider MEDIA MGR SCAN EXT O RDR/RSLT * (ABNORMAL) POCT Glucose (05/14/2013 12:08 PM EST) POC Glucose 222(H) 60 - 199 mg/dL [facility] Comment: Supplemental ranges: <110 mg/dL before meals <200 mg/dL all other times of the day Blood specimen (specimen) 05/14/2013 12:08 PM EST 05/14/2013 12:08 PM EST Kit Self MD POINT OF CARE TEST O RDMARY Performing Organization Address [facility] Co de Phone Number [facility] * POCT Glucose (05/14/2013 7:57 AM EST) Pathologist [facility] [place] POC Glucose 85 60 - 199 mg/dL [facility] Comment: Supplemental ranges: <110 mg/dL before meals <200 mg/dL all other times of the day Blood specimen (specimen) 05/14/2013 7:57 AM EST 05/14/2013 7:57 AM EST Kit Self MD POINT OF CARE TEST O [place] Performing Organization Address [facility] Co de Phone Number [facility] * EKG 12 Lead (05/14/2013 7:40 AM EST) Pathologist [facility] [place] Ventricular rate 72 BPM MUSE SYSTEM Atrial Rate 72 BPM MUSE SYSTEM P-R Interval 208 ms MUSE SYSTEM QRS Duration 122 ms MUSE SYSTEM Q-T Interval 416 ms MUSE SYSTEM QTC Calculated (Bezet) 455 ms MUSE SYSTEM Calculated P [place] 67 degrees MUSE SYSTEM Calculated R [place] -59 degrees MUSE SYSTEM Calculated T [place] -12 degrees MUSE SYSTEM INTERPRETATION Sinus rhythm with frequent Premature ventricular complexes Left axis deviation Inferior infarct , age undetermined Abnormal ECG When compared with ECG of 13-MAY-2013 13:57, (unconfirmed) Premature ventricular complexes are now Present T wave inversion no longer evident in Anterior leads Confirmed by MD William, Navid ([id number]) on 05/14/2013 5:02:59 PM MUSE SYSTEM 05/14/2013 7:40 AM EST 05/14/2013 5:02 PM EST Jennifer Curry MD ECG ORDERABLES MUSE SYSTEM * Differential, Automated (05/14/2013 3:30 AM EST) Neutrophils % 37.4 34.0 - 71.0 % CERNER MILLENNIUM Neutr Abs (ANC) 2.21 1.50 - 6.30 x10(3)/mcL CERNER MILLENNIUM Lymphocytes % 47.9 19.0 - 53.0 % CERNER MILLENNIUM Lymphocytes Abs 2.8 1.0 - 3.6 x10(3)/mcL CERNER MILLENNIUM Monocytes % 7.6 4.0 - 13.0 % CERNER MILLENNIUM Monocyte Abs 0.4 0.2 - 1.0 x10(3)/mcL CERNER MILLENNIUM Eosinophils % 6.4 0.0 - 7.0 % CERNER MILLENNIUM Eosinophils [...] Elyssa Gran Abs 0.01 0.00 - 0.05 x10(3)/mcL CERNER MILLENNIUM Blood specimen (specimen) 05/14/2013 3:30 AM EST 05/14/2013 3:32 AM EST Jennifer Curry MD HEMATOLOGY ORDERABLE S CERNER MILLENNIUM * (ABNORMAL) BMP w/fasting Glucose (05/14/2013 3:30 AM EST) Glucose Fasting 83 65 - 99 mg/dL CERNER MILLENNIUM Comment: [...] of Diabetes Mellitus, Position Statement from the [place] [employer]. ??Diabetes Care, Volume 33, Supplement 1, Apr 2009 BUN 21(H) 10 - 20 mg/dL CERNER MILLENNIUM Creatinine 0.99 0.80 - 1.50 mg/dL CERNER MILLENNIUM Comment: Please note that the pediatric reference intervals supplied above were not validated at [place]. Results from pediatric patients should be interpreted in conjunction to the patient's age, height and muscle mass. Sodium 139 135 - 145 mmol/L CERNER MILLENNIUM Potassium 4.1 3.5 - 5.0 mmol/L CERNER MILLENNIUM Comment: Please note: ??Patients with WBC >100,000 may have falsely elevated Potassium levels. ??For accurate Potassium quantification in these patients send serum separator tube (gold top) for subsequent determinations. ??Contact the Clinical Chemistry Laboratory if there are any questions. Chloride 105 98 - 107 mmol/L CERNER MILLENNIUM CO2 23 22 - 31 mmol/L CERNER MILLENNIUM Anion [...] internet browser. http://www.nkdep.nih.gov/lab-evaluation.shtml http://www.kidney.org/professionals/ Blood specimen (specimen) 05/14/2013 3:30 AM EST 05/14/2013 3:32 AM EST Narrative Resulting Agency Comment Spec In Lab Jennifer Curry MD CHEMISTRY ORDERABLES Performing Organization Address [facility] de Phone Number [facility] * (ABNORMAL) Cardiac Enzymes (05/14/2013 3:30 AM EST) Troponin-T 0.05(H) <=0.03 ng/mL [facility] Comment: 0.03 ng/mL: Represents the 99th percentile upper reference limit for normals. >0.03 ng/mL: Elevated cardiac troponin T level indicative of myocardial damage. Diagnosis of acute, evolving or recent SD requires a typical rise and gradual fall [...] consensus document of the Joint Society of Cardiology/[place] College of Cardiology Committee for the redefinition of myocardial infarction. ??Journal of the [place] College of Cardiology 2000; 36: 959-969] CK, Total 62 0 - 200 unit/L [facility] Blood specimen (specimen) 05/14/2013 3:30 AM EST 05/14/2013 3:32 AM EST Narrative Resulting Agency Comment Spec In Lab Jennifer Curry MD CHEMISTRY ORDERABLES Performing Organization Address [facility] de Phone Number MONICA PERALTA * (ABNORMAL) CBC (with Diff) (05/14/2013 3:30 AM EST) WBC 5.9 4.0 - 10.0 x10(3)/mcL [facility] RBC 4.24(L) 4.63 - 6.08 x10(6)/mcL [facility] Hemoglobin 12.2(L) 13.7 - 17.5 gm/dL [facility] Hematocrit 37.4(L) 40.0 - 51.0 % [facility] MCV 88.2 79.0 - 92.0 fL [facility] MCH 28.8 25.6 - 32.2 pg [facility] MCHC 32.6 32.0 - 36.5 gm/dL [facility] Platelets 185 145 - 370 x10(3)/mcL [facility] RDWSD 45.7 35.0 - 46.0 fL [facility] RDWCV 14.2 10.9 - 14.4 % [facility] MPV 9.6 9.0 - 12.0 fL [facility] Blood specimen (specimen) 05/14/2013 3:30 AM EST 05/14/2013 3:32 AM EST Narrative Resulting Agency Comment Spec In Lab Jennifer Curry MD HEMATOLOGY ORDERABLE S Performing Organization Address [facility]/ZIP Co de Phone Number [facility] * POCT Glucose (05/14/2013 3:10 AM EST) POC Glucose 87 60 - 199 mg/dL [facility] Comment: Supplemental ranges: <110 mg/dL before meals <200 mg/dL all other times of the day Blood specimen (specimen) 05/14/2013 3:10 AM EST 05/14/2013 3:10 AM EST Kit Self MD POINT OF CARE TEST O RDERABLES [facility] * POCT Glucose (05/13/2013 11:40 PM EST) POC Glucose 141 60 - 199 mg/dL [facility] Comment: Supplemental ranges: <110 mg/dL before meals <200 mg/dL all other times of the day Blood specimen (specimen) 05/13/2013 11:40 PM EST 05/13/2013 11:40 PM EST Kit Self MD POINT OF CARE TEST O RDERABLES Performing Organization Address [facility] de Phone Number [facility] * (ABNORMAL) POCT Glucose (05/13/2013 10:14 PM EST) POC Glucose 224(H) 60 - 199 mg/dL [facility] Comment: Supplemental ranges: <110 mg/dL before meals <200 mg/dL all other times of the day Blood specimen (specimen) 05/13/2013 10:14 PM EST 05/13/2013 10:14 PM EST Kit Self MD POINT OF CARE TEST O R[place]OR[place] Performing Organization Address [facility] de Phone Number [facility] * (ABNORMAL) POCT Glucose (05/13/2013 8:52 PM EST) POC Glucose 318(H) 60 - 199 mg/dL [facility] Comment: Supplemental ranges: <110 mg/dL before meals <200 mg/dL all other times of the day Blood specimen (specimen) 05/13/2013 8:52 PM EST 05/13/2013 8:52 PM EST Kit Self MD POINT OF CARE TEST O [place] Performing Organization Address [facility] Co de Phone Number [facility] * POCT Glucose (05/13/2013 3:55 PM EST) POC Glucose 90 60 - 199 mg/dL [facility] Comment: Supplemental ranges: <110 mg/dL before meals <200 mg/dL all other times of the day Blood specimen (specimen) 05/13/2013 3:55 PM EST 05/13/2013 3:55 PM EST Kit Self MD POINT OF CARE TEST O RDERABLES Performing Organization Address [facility] de Phone Number [facility] * EKG 12 Lead (05/13/2013 1:57 PM EST) Ventricular rate 59 BPM MUSE SYSTEM Atrial Rate 59 BPM MUSE SYSTEM P-R Interval 224 ms MUSE SYSTEM QRS Duration 132 ms MUSE SYSTEM Q-T Interval 438 ms MUSE SYSTEM QTC Calculated (Bezet) 433 ms MUSE SYSTEM Calculated P [place] 37 degrees MUSE SYSTEM Calculated R [place] -61 degrees MUSE SYSTEM Calculated T [place] -29 degrees MUSE SYSTEM INTERPRETATION Sinus bradycardia with 1st degree A-V block Left axis deviation Non-specific intra-ventricula r conduction block T wave abnormality, consider anterolateral ischemia Abnormal ECG Confirmed by MD William, Navid (57) on 05/14/2013 3:52:55 PM MUSE SYSTEM 05/13/2013 1:57 PM EST 05/14/2013 3:52 PM EST Jennifer Curry MD ECG ORDERABLES Performing Organization Address [facility] de Phone Number MUSE SYSTEM * Cardiac Enzymes (05/13/2013 1:00 PM EST) Troponin-T <0.03 <=0.03 ng/mL [facility] Comment: 0.03 ng/mL: Represents the 99th percentile upper reference limit for normals. >0.03 ng/mL: Elevated cardiac troponin T level indicative of myocardial damage. Diagnosis of acute, evolving or recent SD requires a typical rise and gradual fall [...] consensus document of the Joint Society of Cardiology/[place] College of Cardiology Committee for the redefinition of myocardial infarction. ??Journal of the [place] College of Cardiology 2000; 36: 959-969] CK, Total 52 0 - 200 unit/L [facility] Blood specimen (specimen) 05/13/2013 1:00 PM EST 05/13/2013 1:19 PM EST Narrative Resulting Agency Comment Spec In Lab Kit Self MD CHEMISTRY ORDERABLES Performing Organization Address [facility] Co de Phone Number MONICA PERALTA * POCT Glucose (05/13/2013 10:46 AM EST) POC Glucose 113 60 - 199 mg/dL [facility] Comment: Supplemental ranges: <110 mg/dL before meals <200 mg/dL all other times of the day Blood specimen (specimen) 05/13/2013 10:46 AM EST 05/13/2013 10:46 AM EST Kit Self MD POINT OF CARE TEST O RDERABLES Performing Organization Address [facility] de Phone Number MONICA PERALTA documented in this encounter Visit Diagnoses Diagnosis ASCVD (arteriosclerotic cardiovascular disease)- Primary Unspecified cardiovascular disease CAD (coronary artery disease) Coronary atherosclerosis of unspecified type of vessel, chilkoot or graft 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 Coronary atherosclerosis of chilkoot coronary artery ASCVD (arteriosclerotic cardiovascular disease) Unspecified cardiovascular disease CAD (coronary artery disease) Coronary atherosclerosis of unspecified type of vessel, chilkoot or graft 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 Coronary atherosclerosis of chilkoot coronary artery documented in this encounter Administered Medications Inactive Administered Medications - up to 3 most recent administrations Medication Order MAR Action Action Date Dose Rate Site alprazolam (XANAX) tablet 1 mg 1 mg, Oral, 3 TIMES DAILY PRN, Starting on 05/14/13 at 0759, Until 05/14/13 at 1620, Anxiety, Routine Given 05/14/2013 7:00 AM EST 1 mg aspirin EC tablet 81 mg 81 mg, Oral, DAILY, First dose on 05/14/13 at 0900, Until Discontinued, Routine Given 05/14/2013 9:00 AM EST 81 mg clopidogrel (PLAVIX) tablet 75 mg 75 mg, Oral, DAILY, First dose on 05/14/13 at 0900, Until Discontinued, Routine Given 05/14/2013 9:00 AM EST 75 mg clopidogrel (PLAVIX) tablet ONCE PRN, Starting on Thu05/13/13 at 1305, Until Thu05/13/13 at 1311, Cath (Intra-Procedure), Routine Given 05/13/2013 1:05 PM EST 600 mg diaZEPam (VALIUM) tablet 5 mg 5 mg, Oral, ONCE, 1 dose, On Thu05/13/13 at 1045, Cath (Day of Procedure), Routine Given 05/13/2013 11:10 AM EST 5 mg diphenhydrAMINE (BENADRYL) capsule 25 mg 25 mg, Oral, ONCE, 1 dose, On Thu05/13/13 at 1045, Cath (Day of Procedure), Routine Given 05/13/2013 11:10 AM EST 25 mg fentaNYL 50mcg/mL injection ONCE PRN, Starting on Thu05/13/13 at 1135, Until Thu05/13/13 at 1311, Pain, Intra-Operative (Intra-Procedure), Routine Given 05/13/2013 11:51 AM EST 25 mcg Given 05/13/2013 11:35 AM EST 50 mcg fentaNYL 50mcg/mL injection ONCE PRN, Starting on Thu05/13/13 at 1220, Until Thu05/13/13 at 1311, Pain, Cath (Intra-Procedure), Routine Given 05/13/2013 12:20 PM EST 25 mcg glipizide (GLUCOTROL) CR tablet 5 mg 5 mg, Oral, DAILY, First dose on Thu05/13/13 at 1500, Until Discontinued, Routine Given 05/14/2013 9:00 AM EST 5 mg Given 05/13/2013 4:08 PM EST 5 mg heparin (porcine) injection ONCE PRN, Starting on Thu05/13/13 at 1223, Until Thu05/13/13 at 1311, Cath (Intra-Procedure), Routine Given 05/13/2013 12:23 PM EST 6,000 Units Given 05/13/2013 11:52 AM EST 2,000 Units hydrochlorothiazide (HYDRODIURIL) tablet 12.5 mg 12.5 mg, Oral, DAILY, First dose on Thu05/13/13 at 1600, Until Discontinued, Routine Given 05/14/2013 9:00 AM EST 12.5 mg insulin aspart (novoLOG) PEN injection 1-4 Units 1-4 Units, Subcutaneous, EVERY 4 HOURS SCHEDULED, First dose on Thu05/13/13 at 1600, Until Discontinued, CORRECTION BOLUS Sensitive [...] hours, give no insulin and resume prior schedule., Routine Given 05/14/2013 12:00 PM EST 3 Units Given 05/13/2013 8:54 PM EST 4 Units iohexol (OMNIPAQUE) 350 mg iodine/mL injection ONCE PRN, Starting on Thu05/13/13 at 1307, Until Thu05/13/13 at 1311, Per Protocol, Cath (Intra-Procedure), Routine Given 05/13/2013 1:07 PM EST 213 mLs lamotrigine (LAMICTAL) tablet 100 mg 100 mg, Oral, DAILY, First dose on Thu05/13/13 at 1500, Until Discontinued, Routine Given 05/14/2013 9:00 AM EST 100 mg lidocaine (XYLOCAINE) 10 mg/mL (1 %) injection ONCE PRN, Starting on Thu05/13/13 at 1128, Until Thu05/13/13 at 1311, Cath (Intra-Procedure), Routine Given 05/13/2013 11:28 AM EST 20 mg lidocaine HCl (URO-JET) 2 % gel 1 dose, Starting on Thu05/13/13 at 1324, Until Thu05/13/13 at 1330, JOSUE LOPEZ: cabinet override Given 05/13/2013 1:30 PM EST 10 mLs lisinopril (PRINIVIL;ZESTRIL) tablet 10 mg 10 mg, Oral, DAILY, First dose on Thu05/13/13 at 1600, Until Discontinued, Routine Given 05/14/2013 9:00 AM EST 10 mg midazolam (PF) (VERSED) 1 mg/mL injection ONCE PRN, Starting on Thu05/13/13 at 1135, Until Thu05/13/13 at 1311, Sleep, Cath (Intra-Procedure), Routine Given 05/13/2013 12:21 PM EST 1 mg Given 05/13/2013 11:51 AM EST 1 mg Given 05/13/2013 11:35 AM EST 1 mg nadolol (CORGARD) tablet 20 mg 20 mg, Oral, DAILY, First dose on Thu05/13/13 at 1500, Until Discontinued, Routine Given 05/14/2013 9:00 AM EST 20 mg nortriptyline (PAMELOR) capsule 50 mg 50 mg, Oral, 2 TIMES DAILY, First dose on Thu05/13/13 at 2100, Until Discontinued, Routine Given 05/13/2013 10:15 PM EST 50 mg OXYcodone-acetaminophen (PERCOCET) 5-325 mg per tablet 1 tablet 1 tablet, Oral, EVERY 4 HOURS PRN, Starting on Thu05/13/13 at 1442, Until Thu05/14/13 at 1620, Pain, Maximum dose of acetaminophen is 4000 mg from all sources in 24 hours., Routine Given 05/14/2013 1:45 PM EST 1 tablet Given 05/14/2013 8:08 AM EST 1 tablet Given 05/14/2013 3:25 AM EST 1 tablet pantoprazole (PROTONIX) tablet 40 mg 40 mg, Oral, 2 TIMES DAILY, First dose on Thu05/13/13 at 2100, Until Discontinued, Restricted to patients on clopidogrel (PLAVIX) who require a proton pump inhibitor Given 05/14/2013 9:00 AM EST 40 mg Given 05/13/2013 9:02 PM EST 40 mg sodium chloride 0.9% infusion 200 mL/hr, Intravenous, CONTINUOUS, Starting on Thu05/13/13 at 1115, Until Thu05/13/13 at 1434, Cath (Day of Procedure) New Bag 05/13/2013 10:56 AM EST 200 mL/hr 200 mL/hr sodium chloride 0.9% infusion CONTINUOUS PRN, Starting on Thu05/13/13 at 1210, Until Thu05/13/13 at 1311, Cath (Intra-Procedure) New Bag 05/13/2013 12:10 PM EST 500 mLs 1000 mL/hr sodium chloride 0.9% infusion 150 mL/hr, Intravenous, CONTINUOUS, Starting on Thu05/13/13 at 1345, Until Thu05/13/13 at 2144 New Bag 05/13/2013 1:23 PM EST 150 mL/hr 150 mL/hr zolpidem (AMBIEN) tablet 10 mg 10 mg, Oral, NIGHTLY PRN, Starting on Thu05/13/13 at 1433, Until Thu05/14/13 at 1620, Sleep, Routine Given 05/13/2013 10:22 PM EST 10 mg documented in this encounter Active and Recently Administered Medications Times are shown in EST. Scheduled Medication Order 05/12/2013 05/13/2013 05/14/2013 aspirin EC tablet 81 mg 81 mg, Oral, DAILY, First dose on Thu05/14/13 at 0900, Until Discontinued, Routine 0900 (Given - Provid er: Shyanne Casillas RN) clopidogrel (PLAVIX) tablet 75 mg 75 mg, Oral, DAILY, First dose on Thu05/14/13 at 0900, Until Discontinued, Routine 0900 (Given - Provid er: Shyanne Casillas RN) diaZEPam (VALIUM) tablet 5 mg (COMPLETED) 5 mg, Oral, ONCE, 1 dose, On Thu05/13/13 at 1045, Cath (Day of Procedure), Routine 1110 (Given - Provider: Mitali Kwon RN) diphenhydrAMINE (BENADRYL) capsule 25 mg (COMPLETED) 25 mg, Oral, ONCE, 1 dose, On Thu05/13/13 at 1045, Cath (Day of Procedure), Routine 1110 (Given - Provider: Mitali Kwon RN) glipizide (GLUCOTROL) CR tablet 5 mg (CANCELED) 5 mg, Oral, DAILY, First dose on Thu05/13/13 at 1500, Until Discontinued, Routine 1608 (Given - Provider: Ely Villalpando RN) 0900 (Given - Provider: Shyanne Casillas RN) hydrochlorothiazide (HYDRODIURIL) tablet 12.5 mg (CANCELED) 12.5 mg, Oral, DAILY, First dose on Thu05/13/13 at 1600, Until Discontinued, Routine 1600 (Not Given - Provider: Ely Villalpando RN - Reason: See comment - Comment: 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) 0900 (Given - Provider: Shyanne Casillas RN) insulin aspart (novoLOG) PEN injection 1-4 Units (CANCELED) 1-4 Units, Subcutaneous, EVERY 4 HOURS SCHEDULED, First dose on Thu05/13/13 at 1600, Until Discontinued, CORRECTION BOLUS Sensitive [...] hours, give no insulin and resume prior schedule., Routine 1600 (Not Given - Provider: Ely Villalpando RN - Reason: Order parameters not met)2054 (Given - Provider: Ely Villalpando RN) 0000 (Not Given - Provider: Jace Howard RN - Reason: Contraindicated)0400 (Not Given - Provider: Jace Howard RN - Reason: Contraindicated)0800 (Not Given - Provider: Shyanne Casillas RN - Reason: Order parameters not met)1200 (Given - Provider: Shyanne Casillas RN) lamotrigine (LAMICTAL) tablet 100 mg (CANCELED) 100 mg, Oral, DAILY, First dose on Thu05/13/13 at 1500, Until Discontinued, Routine 1500 (Not Given - Provider: Ely Villalpando RN - Reason: See comment - Comment: 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) 0900 (Given - Provider: Shyanne Casillas RN) lisinopril (PRINIVIL;ZESTRIL) tablet 10 mg (CANCELED) 10 mg, Oral, DAILY, First dose on Thu05/13/13 at 1600, Until Discontinued, Routine 1600 (Not Given - Provider: Ely Villalpando RN - Reason: See comment - 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) 0900 (Given - Provider: Shyanne Casillas RN) nadolol (CORGARD) tablet 20 mg (CANCELED) 20 mg, Oral, DAILY, First dose on Thu05/13/13 at 1500, Until Discontinued, Routine 1500 (Not Given - Provider: Ely Villalpando RN - Reason: See comment - Comment: took [employer] MARKETING EXEC[employer]IVE) 0900 (Given - Provider: Shyanne Casillas RN) nortriptyline (PAMELOR) capsule 50 mg (CANCELED) 50 mg, Oral, 2 TIMES DAILY, First dose on Thu05/13/13 at 2100, Until Discontinued, Routine 2100 (Hold - Provider: Ely Villalpando RN - Reason: See comment - Comment: patient requesting med at 2200)2215 (Given - Provider: Ely Villalpando RN) 0900 (Not Given - Provider: Shyanne Casillas RN - Reason: Patient/family refused) pantoprazole (PROTONIX) tablet 40 mg 40 mg, Oral, 2 TIMES DAILY, First dose on Thu05/13/13 at 2100, Until Discontinued, Restricted to patients on clopidogrel (PLAVIX) who require a proton pump inhibitor 2101 (Given - Provider: Ely Villalpando RN) 0900 (Given - Provider: Shyanne Casillas RN) Continuous Medication Order 05/12/2013 05/13/2013 05/14/2013 sodium chloride 0.9% infusion (CANCELED) 200 mL/hr, Intravenous, CONTINUOUS, Starting on Thu05/13/13 at 1115, Until Thu05/13/13 at 1434, Cath (Day of Procedure) 1056 (New Bag - Provider: Dominick Kwon RN) sodium chloride 0.9% infusion 150 mL/hr, Intravenous, CONTINUOUS, Starting on Thu05/13/13 at 1345, Until Thu05/13/13 at 2144 1323 (New Bag - Provider: Al Lopez RN) PRN Medication Order 05/12/2013 05/13/2013 05/14/2013 alprazolam (XANAX) tablet 1 mg (CANCELED) 1 mg, Oral, 3 TIMES DAILY PRN, Starting on 05/14/13 at 0759, Until 05/14/13 at 1620, Anxiety, Routine 0700 (Given - Provid er: Shyanne Casillas RN) clopidogrel (PLAVIX) tablet (CANCELED) ONCE PRN, Starting on Thu05/13/13 at 1305, Until Thu05/13/13 at 1311, Cath (Intra-Procedure), Routine 1305 (Given - Provider: Sravani Chatman RN) fentaNYL 50mcg/mL injection (CANCELED) ONCE PRN, Starting on Thu05/13/13 at 1135, Until Thu05/13/13 at 1311, Pain, Intra-Operative (Intra-Procedure), Routine 1135 (Given - Provider: William Espinoza RN)1151 (Given - Provider: Sravani Chatman RN) fentaNYL 50mcg/mL injection (CANCELED) ONCE PRN, Starting on Thu05/13/13 at 1220, Until Thu05/13/13 at 1311, Pain, Cath (Intra-Procedure), Routine 1220 (Given - Provider: Santiago Mcnally RN) heparin (porcine) injection (CANCELED) ONCE PRN, Starting on Thu05/13/13 at 1223, Until Thu05/13/13 at 1311, Cath (Intra-Procedure), Routine 1152 (Given - Provider: Jennifer Curry MD)1223 (Given - Provider: Jennifer Curry MD) iohexol (OMNIPAQUE) 350 mg iodine/mL injection (CANCELED) ONCE PRN, Starting on Thu05/13/13 at 1307, Until Thu05/13/13 at 1311, Per Protocol, Cath (Intra-Procedure), Routine 1307 (Given - Provider: Jennifer Curry MD) lidocaine (XYLOCAINE) 10 mg/mL (1 %) injection (CANCELED) ONCE PRN, Starting on Thu05/13/13 at 1128, Until Thu05/13/13 at 1311, Cath (Intra-Procedure), Routine 1128 (Given - Provider: Raji Novak - Comment: right groin) midazolam (PF) (VERSED) 1 mg/mL injection (CANCELED) ONCE PRN, Starting on Thu05/13/13 at 1135, Until Thu05/13/13 at 1311, Sleep, Cath (Intra-Procedure), Routine 1135 (Given - Provider: William Espinoza RN)1151 (Given - Provider: Sravani Chatman RN)1221 (Given - Provider: Santiago Mcnally RN) OXYcodone-acetaminophen (PERCOCET) 5-325 mg per tablet 1 tablet (CANCELED) 1 tablet, Oral, EVERY 4 HOURS PRN, Starting on Thu05/13/13 at 1442, Until Thu05/14/13 at 1620, Pain, Maximum dose of acetaminophen is 4000 mg from all sources in 24 hours., Routine 1705 (Given - Provider: Ely Villalpando, NAHUN)2103 (Given - Provider: Ely Villalpando RN) 0325 (Given - Provider: Jace Howard RN)0808 (Given - Provider: Shyanne Casillas, NAHUN)1345 (Given - Provider: Shyanne Casillas, NAHUN) sodium chloride 0.9% infusion (CANCELED) CONTINUOUS PRN, Starting on Thu05/13/13 at 1210, Until 05/13/13 at 1311, Cath (Intra-Procedure) 1210 (New Bag - Provider: Sravani Chatman RN - Comment: 500cc IV bolus during cath) zolpidem (AMBIEN) tablet 10 mg (CANCELED) 10 mg, Oral, NIGHTLY PRN, Starting on 05/13/13 at 1433, Until 05/14/13 at 1620, Sleep, Routine 2222 (Given - Provider: Ely Villalpando RN) No Frequency Medication Order 05/12/2013 05/13/2013 05/14/2013 lidocaine HCl (URO-JET) 2 % gel (COMPLETED) 1 dose, Starting on Thu05/13/13 at 1324, Until Thu05/13/13 at 1330, JOSUE LOPEZ: cabinet override 1330 (Given - Provider: Ned Lopez, NAHUN) documented in this encounter Care Teams Literary Agent Relationship Specialty Start Date End Date Jennifer Haro MD PCP - General 01/07/12 01/30/14 documented as of this encounter
--- OUTSIDE RECORDS SUMMARY | 2023-11-03 01:31 | XMS_ITS | Encounter Summary ---
Author Organization [facility] Address [facility] [place] [address] Care Team Providers Care Core Worker Name Role Phone Iggy Sevilla MD Primary Care Provider [phone] Encounter Details Date Type Department Care Team (Latest Contact Info) Description 12/17/2011 9:04 AM EDT - 12/17/2011 3:22 PM EDT Hospital [place] [address] Kyra Vyas MD [facility] [address] [place] [address] Discharge Disposition: Home Social History Tobacco Use [...] this encounter Discharge Instructions * Discharge Instructions* aMura Bryant RN - 12/17/2011 10:47 AM EDT [...] occurs, please contact your MD/ Please call [phone] before 5pm with problems, questions or concerns. After 5pm call [phone] and ask to speak with the spotter driver household personal assistant. Discharge instructions reviewed with patient who expresses understanding. * Patient Instructions* Kyra Vyas MD - 12/17/2011 10:04 AM EDT Please see Recommendations in the Provation procedure report which is documented in the procedural note in E-DH. * Attachments The following attachments cannot be sent through Care Everywhere. * UPPER GI ENDOSCOPY: WHAT TO EXPECT AT HOME (POLISH) documented in this encounter Medications at Time [...] AM EDT Hospital Encounter Non[place] [address] Arrived documented as of this encounter Procedures [...] 12:19 PM EDT) Surgical Pathology Report ? [facility] ? Provider: ?? KYRA VYAS ? Pt. Name: ?? SHAHNAZ HENDRIX ? Acc #: ?[id number] ?Pt. ? Col Date: ?? 12/17/2011 ? [...] ? C - Labeled/Fixative: Esophagus, formalin. ? [facility] ? Provider: ?? KYRA VYAS ? Pt. Name: ?? SHAHNAZ HENDRIX ? Acc #: ?[id number] ?Pt. ? Col Date: ?? 12/17/2011 ? [...] Z-line at 39 cm, ? [facility] CERNER MILLENNIUM 12/17/2011 12:1 9 PM EDT Kyra Vyas MD PATHOLOGY/CYTOLOGY O RDERABLES Performing Organization Address [facility] Co de Phone Number MONICA PERALTA * Specimen to Pathology (surgical or derm) (12/17/2011 10:07 AM EDT) AP Specimen 12/17/2011 10:0 7 AM EDT 12/17/2011 10:07 AM EDT Narrative STACYDELMAR PERALTA - 12/17/2011 10:07 AM EDT Specimen requisition ordered. ??Separate Pathology report to follow Kyra Vyas MD PATHOLOGY/CYTOLOGY O [place] Performing Organization Address [facility] de Phone Number STACYDELMAR PERALTA * Specimen to Pathology (surgical or derm) (12/17/2011 10:07 AM EDT) AP Specimen 12/17/2011 10:0 7 AM EDT 12/17/2011 10:07 AM EDT Narrative MONICA MILTONSEPIDEHGENE - 12/17/2011 10:07 AM EDT Specimen requisition ordered. ??Separate Pathology report to follow Kyra Vyas MD PATHOLOGY/CYTOLOGY O [place] Performing Organization Address [facility] de Phone Number STACYDELMAR PERALTA * Specimen to Pathology (surgical or derm) (12/17/2011 10:07 AM EDT) AP Specimen 12/17/2011 10:0 7 AM EDT 12/17/2011 10:07 AM EDT Narrative MONICA MILTONSEPIDEHGENE - 12/17/2011 10:07 AM EDT Specimen requisition ordered. ??Separate Pathology report to follow Kyra Vyas MD PATHOLOGY/CYTOLOGY O [place] Performing Organization Address [facility] Co de Phone Number MONICA MILTONSEPIDEHGENE * POCT GLUCOSE LAB USE ONLY (12/17/2011 9:36 AM EDT) POC Glucose 181 60 - 199 mg/dL MONICA PERALTA Comment: Supplemental ranges: <110 mg/dL before meals <200 mg/dL all other times of the day Blood specimen (specimen) 12/17/2011 9:36 AM EDT 12/17/2011 9:36 AM EDT Kyra Vyas MD POINT OF CARE TEST O [place] MONICA PERALTA * UPPER GI ENDOSCOPY (12/17/2011 9:24 AM EDT) Pathologist [facility] UPPER GI ENDOSCOPY [facility] Endoscopy Patient Name: Shahnaz Hendrix ? Procedure Date: 12/17/2011 9:24 AM ? N: [id number] ? Date of : 1950 ? Age: 61 ? Order #: [id number] ? Procedure: ? Upper GI endoscopy Indications: ? Dyspepsia, Heartburn Providers: ? Kyra Vyas MD, Pavel Carreno, NAHUN, ? Loraine Stewart, Commercial Analyst Referring MD: ?Dr. Mcdermott Requesting Provider: Baldemar [...] Iggy Sevilla MD GENERAL SURGICAL ORD ERABLES PROVATION documented in this encounter Visit Diagnoses Not on filedocumented in this encounter Administered Medications Inactive Administered Medications - up to 3 most recent administrations Medication Order MAR Action Action Date Dose Rate Site sodium chloride 0.9% infusion 50 mL/hr, Intravenous, [...] RN) documented in this encounter Care Teams Core Worker Relationship Specialty Start Date End Date Iggy Sevilla MD [address] [place] [id number] PCP - General 10/22/10 01/06/12 documented as of this encounter
--- OUTSIDE RECORDS SUMMARY | 2023-11-03 01:31 | XMS_ITS | Encounter Summary ---
Author Organization [facility] [place] [address] Care Team Providers Care Deli Associate Name Role Phone Iggy Sevilla MD Primary Care Provider [phone] Reason for Visit * Reason Comments GI Problem Encounter Details Date Type Department Care Team (Late st Contact Info) Description 11/17/2011 9:00 AM EDT Office Visit [place] [address] Baldemar Crockett APRN [facility] [place] [address] IBS (irritable bowel syndrome) (Primary Dx) Discharge Disposition: Home Social History Tobacco Use Types Packs/Day Years Used Date Smoking Tobacco: Never Assessed Sex and Gender Information Value Date Recorded Sex Assigned at Not on file Gender Identity Not on file Sexual Orientation Not on file documented as of this encounter Last Filed Vital Signs Vital Sign Reading Time Taken Comments Blood Pressure 119/57 11/17/2011 9:22 AM EDT Pulse 80 11/17/2011 9:22 AM EDT Temperature - - Respiratory Rate - - Oxygen Saturation - - Inhaled Oxygen Concentration - - Weight 98 kg (216 lb) 11/17/2011 9:22 AM EDT Height 185.4 cm (6' 1) 11/17/2011 9:22 AM EDT Body Mass Index 28.5 11/17/2011 9:22 AM EDT documented in this encounter Progress Notes * Keira, Instructor, RN - 11/17/2011 9:45 AM EDT Section of Gastroenterology and Hepatology [address] [place], [place] [id number] .Marquez Hendrix : 1950 Patient is here for further evaluation of gastrointestinal symptoms at the request of Iggy Haskins. HPI: Has a hx of an occasional diarrhea. Seemed to worsen after his in August 2009. Stool studies negative. Diarrhea occurs about 3x per day. It will begin with a solid stool, then followed by an urgent loose stool, then 2 hrs later, a watery stool. Eating can be a trigger. Stool can be explosive. Abdominal cramping, which resolves after emptying. Colonoscopy 2009, per pt, [facility], normal. No blood in stool. Mucus in stool, a different odor. Has not correlated sx with medications, foods, or activities. Does not awake with sx. Weight stable. No chronic nsaids. No food allergies. Imodium prn. Tried probiotics in yogurt, Activia, did not agree with you. He believes he had a CT while in [facility], it was negative for diverticulitis. Diet: Breakfast: at times does not eat, but when he does, eggs, bagel, sausage. Lunch: soup. Dinner: processed food, TV dinners. Fluids: water, vitamin water. Coffee 2 cups per day. Snacks: chips, junk food occasionally Recently has begun to have heartburn and regurgitation. Using otc zantac, prilosec with no effect. Then will add Pepto, with little relief. Can awake during sleep with reflux sx. No dysphagia, odynophagia, chest pain, ent concerns. History Social History ??? Marital Status: Spouse Name: N/A Number of Children: N/A ??? Years of Education: N/A Occupational History ??? Not on file. Social History Main Topics ??? Smoking status: Not on file ??? Smokeless tobacco: Not on file ??? Alcohol Use: Not on file ??? Drug Use: Not on file ??? Sexually Active: Not on file Other Topics Concern ??? Not on file Social History Narrative ??? No narrative on file Medical History: htn, cardiac stents, ascvd, depression, kidney stones, high cholesterol, diabetes Surgical History: cholecystectomy, kidney stones, cardiac stents Family History: no gi etiologies No Known Allergies Current outpatient prescriptions:CLOPIDOGREL BISULFATE (PLAVIX ORAL), Take by mouth., Disp: , Rfl: ; NADOLOL ORAL, Take by mouth., Disp: , Rfl: ; FENOFIBRIC ACID, CHOLINE, (TRILIPIX ORAL), Take by mouth., Disp: , Rfl: ; GLIPIZIDE (GLUCOTROL ORAL), Take by mouth., Disp: , Rfl: ; ZOLPIDEM TARTRATE (AMBIEN ORAL), Take by mouth., Disp: , Rfl: ; NORTRIPTYLINE HCL (NORTRIPTYLINE ORAL), Take by mouth., Disp: , Rfl: ALPRAZOLAM ORAL, Take by mouth., Disp: , Rfl: Review of Systems - Negative except General: Cardiac: Resp: GI: see above : MS: Neuro: Skin: Psyche: Sleep: Endo: Impression: 1. IBS-D: ?role of diet ?role of meds. fodmap diet. Probiotics. Imodium prn. Obtain ttg. May need to consider levsin or bentyl. May need to consider colonoscopy for colonic bx to rule out microscopiccolitis. 2. Gerd: Omeprazole 40mg qd, 30 minutes before breakfast. gerd diet and lifestyle modifications. Upper endoscopy. 3. F/u with pt once results received. I spent a total of 53 minutes face to face with this patient; 32 minutes were spent counseling the patient in the medical problems described above. Sincerely, Baldemar Crockett NP Section of Gastroenterology and Hepatology documented in this encounter Plan of Treatment Upcoming Encounters Date Type Department Care Team (Late st Contact Info) Description 12/18/2023 10:00 AM EDT Hospital Encounter Non-Invasive [place] [address] Arrived documented as of this encounter Procedures Procedure Name Priority Date/Time Associated Diagnosis Comments TISSUE TRANSGLUTAMINASE, IGA Routine 11/17/2011 10:24 AM EDT IBS (irritable bowel syndrome) documented in this encounter Results * Tissue transglutaminase, IgA (11/17/2011 10:24 AM EDT) TTG IgA Ab <4.0 <=3.9 u/ml [facility] Comment: Result Interpretation: Negative: ?<4 U/mL Weak Positive: ??4-10 U/mL Positive: ?>10 U/mL Blood specimen (specimen) 11/17/2011 10:24 AM EDT 11/17/2011 2:20 PM EDT Narrative Resulting Agency Comment Spec In Lab Juwan Skinner MD IMMUNOLOGY ORDERABLE S [facility] documented in this encounter Visit Diagnoses Diagnosis IBS (irritable bowel syndrome)- Primary Irritable bowel syndrome documented in this encounter Care Teams Deli Associate Relationship Specialty Start Date End Date Iggy Sevilla MD [address] [place] [address] [place] [address] PCP - General 10/22/10 01/06/12 documented as of this encounter
--- OUTSIDE RECORDS SUMMARY | 2023-11-03 01:31 | XMS_ITS | Encounter Summary ---
Author Organization [facility] Address [facility] [place] [address] Care Team Providers Care Rn Residential Name Role Phone Jennifer Haro MD Primary Care Provider [phone] Reason for Visit * Reason Comments Follow-up S/P cath Encounter Details Date Type Department Care Team (Late st Contact Info) Description 06/14/2013 9:40 AM EST Follow-Up Cardiology at [address] [address] Kit Self MD [facility] [place] [address] ASCVD (arteriosclerotic cardiovascular disease); Tobacco abuse Discharge Disposition: Home Social History Tobacco Use [...] Sign Reading Time Taken Comments Blood Pressure 120/68 06/14/2013 9:53 AM EST Pulse 74 06/14/2013 9:53 AM EST Temperature - - Respiratory Rate 16 06/14/2013 9:53 AM EST Oxygen Saturation 98% 06/14/2013 9:53 AM EST Inhaled Oxygen Concentration - - Weight 94.3 kg (208 lb) 06/14/2013 9:53 AM EST Height 185.4 cm (6' 1) 06/14/2013 9:53 AM EST Body Mass Index 27.44 06/14/2013 9:53 AM EST documented in this encounter Progress Notes * Kit Self MD - 06/14/2013 10:45 AM EST Images from the original note were not included. [facility] [place] [address] CARDIOLOGY OUTPATIENT FOLLOW-UP NOTE Marquez Evan Simeon [id number] PCP: JENNIFER HARO MD 06/14/2013 PRIMARY CARE PROVIDER: JENNIFER HARO MD PROBLEM LIST: Patient Active Problem List [...] beginning fall ?? Nuclear stress test at [facility] in [place], [place] May 02, 2013 during which he [...] JON to 80%mid-LAD lesion (in-stent restenosis) ??? Irritant contact dermatitis ??? T2DM (type 2 diabetes mellitus) ??? Esophageal reflux ??? IBS (irritable bowel syndrome) ??? Diabetes mellitus ??? HTN (hypertension) ??? Elevated cholesterol MEDICATIONS: Current Outpatient Prescriptions Medication Sig Dispense Refill ??? rosuvastatin (CRESTOR) 20 mg tablet Take 20 mg by mouth daily. ??? zolpidem (AMBIEN) 10 mg tablet Take 10 mg by mouth nightly as needed. ??? aspirin 81 mg EC tablet Take 1 tablet by mouth daily. 30 tablet 3 ??? clopidogrel (PLAVIX) 75 mg tablet Take 1 tablet by mouth daily. 30 tablet 11 ??? pantoprazole (PROTONIX) 40 mg tablet Take 1 tablet by mouth 2 times daily. 90 tablet 6 ??? nortriptyline (PAMELOR) 50 mg capsule Take 50 mg by mouth 2 times daily. ??? [place]-3 Fatty Acids (FISH OIL) 500 mg Cap Take by mouth daily. ??? multivitamin capsule Take 1 capsule by mouth daily. ??? LANCETS MISC by Misc.(Non-Drug; Combo Route) route. ??? lamotrigine (LAMICTAL) 100 mg tablet Take 100 mg by mouth daily. ??? alprazolam (XANAX XR) 3 mg 24 hr tablet Take 3 mg by mouth every morning. ? ? lactobac cmb #[id number] (PROBIOTIC & ACIDOPHILUS) 300-250 million cell- mg [...] every 5 minutes as needed. ??? [DISCONTINUED] FENOFIBRIC ACID, CHOLINE, (TRILIPIX ORAL) Take by mouth daily. ??? [DISCONTINUED] fluocinolone 0.01 % cream Apply topically 2 times daily. VITAL SIGNS: BP 120/68 Pulse 74 Resp 16 Ht 185.4 cm (6' 1) Wt 94.348 kg (208 lb) BMI 27.45 kg/m2 SpO2 98% SUBJECTIVE: This 63-year-old man with known coronary disease as outlined above has recently been experiencing some atypical symptoms. A nuclear stress test was performed at his local hospital and suggested some inferior ischemia. Accordingly, he was set up for heart catheterization which took placeon May 13, 2013. He ended up showing an in-stent restenosis lesion in his mid LAD which was 80%in severity. His other arteries looked okay. He received a drug-eluting stent in an uncomplicated procedure. He tells me that he is doing well. His previously reported chest discomfort has improved dramatically and has, in fact, no longer been happening. He was previously experiencing some labored beatingof his heart which she also feels has improved. He says his right groin healed well. He describes no new issues. OBJECTIVE: Physical Exam: On exam he appeared in good health and spirits. Vital signs as documented. Skin warmand dry and without overt rashes. Neck without JVD. Lungs clear. Heart exam notable for regular rhythm, normal sounds and absence of murmurs, rubs or gallops. Abdomen unremarkable and without evidence of organomegally, masses, or abdominal aortic enlargement. Extremities non-edematous. DIAGNOSES: 1. Coronary artery disease 2. Status post stenting of the mid LAD DISCUSSION: He seems to benefit from stenting to his in-stent restenosis lesion in the mid LAD. Unfortunately, this has been stented several times now and if this recurs, repeat stenting may not be an option and we may need to consider bypass surgery. We reviewed the situation in detail. We spent agood deal of time talking about the importance of smoking cessation. PLAN: 1. Continue current medications 2. Intensify efforts at smoking cessation 3. Cardiology follow-up in 6 months documented in this encounter Plan of Treatment Upcoming Encounters Date Type Department Care Team (Late st Contact Info) Description 12/18/2023 10:00 AM EDT Hospital Encounter [place] [address] Arrived documented as of this encounter Visit Diagnoses Diagnosis ASCVD (arteriosclerotic cardiovascular disease) Unspecified cardiovascular disease Tobacco abuse Tobacco use disorder documented in this encounter Care Teams Rn Residential Relationship Specialty Start Date End Date Jennifer Haro MD PCP - General 01/07/12 01/30/14 documented as of this encounter
--- OUTSIDE RECORDS SUMMARY | 2023-11-03 01:31 | XMS_ITS | Encounter Summary ---
Author Organization [facility] [place] [address] Care Team Providers Care Rubber Chemist Name Role Phone Dewayne Mcdermott MD Primary Care Provider [phone] Reason for Visit * Reason Comments Follow-up Encounter Details Date Type Department Care Team (Late st Contact Info) Description 06/17/2013 1:15 PM EST Office Visit Dermatology at [address] [place] [address] Adis Gonzalez MD [address] [place] [address] [place] [address] Dermatitis (Primary Dx) Social History Tobacco Use Types [...] Progress Notes * Adis Gonzalez MD - 06/17/2013 1:46 PM EST Problem: Followup pressure dermatitis, buttocks. Pato follows up and is doing much better. Physical examination reveals that things have largely healed. The irritant dermatitis on the buttocks with crusting and scabbing has largely resolved. Assessment and Plan: 1. Pressure dermatitis, buttocks. a. Continue using zinc oxide ointment p.r.n. for involvement in this area. b. Patient is about to begin cardiac rehab at [facility], and I think this activity, getting out of the house, will be helpful for him. Note: Patient today was reassured about some nasal telangiectasias which could be treated with Birtcher hyfrecator setting of 1.5. Continue using donut-shaped pillows to sit on, which is working well for him. COPY: Dewayne Mcdermott M.D. documented in this encounter Plan of Treatment Upcoming Encounters Date Type Department Care Team (Late st Contact Info) Description 12/18/2023 10:00 AM EDT Hospital Encounter Non-Invasive [place] [address] Arrived documented as of this encounter Visit Diagnoses Diagnosis Dermatitis- Primary Contact dermatitis and other eczema, due to unspecified cause documented in this encounter Care Teams Rubber Chemist Relationship Specialty Start Date End Date Dewayne Mcdermott MD PCP - General 01/07/12 01/30/14 documented as of this encounter
--- OUTSIDE RECORDS SUMMARY | 2023-11-03 01:31 | XMS_ITS | Encounter Summary ---
Author Organization [facility] Address [facility] [place] [address] Care Team Providers Care Glass Cutter Hand Name Role Phone Dewayne Mcdermott MD Primary Care Provider [phone] Reason for Visit * Reason Comments Coronary Artery Disease Encounter Details Date Type Department Care Team (Late st Contact Info) Description 02/08/2013 8:00 AM EDT Office Visit [address] [address] Mynor Will MD [facility] [place] [address] CAD (coronary artery disease) (Primary Dx) Social History Tobacco Use Types Packs/Day Years Used Date Smoking Tobacco: Former Alcohol Use Standard Drinks/Week Comments No 0 (1 standard drink = 0.6 oz pur e alcohol) Sex and Gender Information Value Date Recorded Sex Assigned at Not on file Gender Identity Not on file Sexual Orientation Not on file documented as of this encounter Progress Notes * Provider, Scanning - 02/10/2013 11:16 AM EDT * Mynor Will - 02/08/2013 9:41 AM EDT Scanned note documented in this encounter Plan of Treatment Upcoming Encounters Date Type Department Care Team (Late st Contact Info) Description 12/18/2023 10:00 AM EDT Hospital Encounter Non-Invasive [place] [address] Arrived documented as of this encounter Visit Diagnoses Diagnosis CAD (coronary artery disease)- Primary Coronary atherosclerosis of unspecified type of vessel, [place] or graft documented in this encounter Care Teams Glass Cutter Hand Relationship Specialty Start Date End Date Dewayen Mcdermott MD PCP - General 01/07/12 01/30/14 documented as of this encounter
--- OUTSIDE RECORDS SUMMARY | 2023-11-03 01:31 | XMS_ITS | Encounter Summary ---
Author Organization [facility] [place] [address] Care Team Providers Care Journeyman Apprentice Electricians Name Role Phone Dewayne Mcdermott MD Primary Care Provider [phone] Encounter Details Date Type Department Care Team (Late st Contact Info) Description 01/05/2014 Orders Only Cardiology at [address] [phone] Huseyin Espinoza MD [facility] [place] [address] Social History Tobacco Use Types Packs/Day Years [...] AM EDT Hospital Encounter Non-[place] [address] Arrived documented as of this encounter Procedures Procedure Name Priority Date/Time Associated Diagnosis Comments FILM LIBRARY STORAGE ONLY DX CHEST Routine 01/05/2014 11:55 PM EDT documented in this encounter Results * Film Library- Storage only DX Chest (01/05/2014 11:55 PM EDT) Anatomical Region Laterality Modality Other 01/05/2014 11:5 5 PM EDT Narrative 01/06/2014 12:04 AM EDT This is a Non-reportable exam Procedure Note 01/06/2014 This is a Non-reportable exam Huseyin Espinoza MD [facility] FILM LIBRARY ORD ERABLES documented in this encounter Visit Diagnoses Not on filedocumented in this encounter Care Teams Journeyman Apprentice Electricians Relationship Specialty Start Date End Date Dweayne Mcdermott MD PCP - General 01/07/12 01/30/14 documented as of this encounter
--- OUTSIDE RECORDS SUMMARY | 2023-11-03 01:31 | XMS_ITS | Encounter Summary ---
[facility] [place] [address] Care Team Providers Care Straight Knife Cutter Machine Name Role Phone Jennfier Haro MD Primary Care Provider [phone] Encounter Details Date Type Department Care Team (Latest Contact Info) Description 05/13/2013 2:27 PM EST - 05/14/2013 2:18 PM EST Hospital Encounter Short [place] [address] [facility] [place] [address] [facility] [place] [address] CAD (coronary artery disease); ASCVD (arteriosclerotic cardiovascular disease); Atherosclerotic heart disease of [place] coronary artery with unstable angina pectoris Discharge Disposition: Home Social History [...] Sign Reading Time Taken Comments Blood Pressure 111/53 05/14/2013 7:49 AM EST Pulse 72 05/14/2013 7:49 AM EST Temperature 36.4 ??C (97.5 ??F) 05/14/2013 7:49 AM ES T Respiratory Rate 16 05/14/2013 7:49 AM EST Oxygen Saturation 97% 05/14/2013 7:49 AM EST Inhaled Oxygen Concentration - - [...] appointments: During 8am-5pm Thursday through Thursday call [phone] to speak with a nurse in the cardiology clinic All other times call [phone] and ask to speak to the instrument and control service person inspection supervisor. Return to work: One week Driving: No driving for 48 hours after catheterization. Follow up Appointments: PCP Call for appointment in 1-2 weeks. Grinding Machine Operator Automatic You should be seen in 3-4 weeks for follow up. Follow up with Dr Nicolette maguire jun 03. Home oxygen therapy: N/A Arrangements for VNA/home care: none * Attachments The following attachments cannot be sent through Care Everywhere. * CHEST PAIN (ANGINA): AFTER YOUR VISIT (DOMINICAN) * CARDIAC REHABILITATION: AFTER YOUR VISIT (DOMINICAN) * PERCUTANEOUS CORONARY INTERVENTION: WHAT TO EXPECT AT HOME (DOMINICAN) documented in this encounter Medications at Time [...] mg by mouth nightly as needed. 06/14/2013 Reedley-3 Fatty Acids (FISH OIL) 500 mg Cap Take by mouth daily. 01/14/2016 lamotrigine (LAMICTAL) 100 mg tablet Take 200 mg by mouth daily. 09/01/2018 alprazolam (XANAX XR) 3 mg 24 hr tablet Take 3 mg by mouth nightly. 09/18/2020 [id number] (PROBIOTIC & ACIDOPHILUS) 300-250 million cell-mg Cap [...] VS documented in doc flow sheets from [id number]. * Shyanne Casillas RN - 05/13/2013 3:53 PM EST Pt arrived from cardiac cath recovery on stretcher at 1430. 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 [...] - 05/13/2013 1:17 PM EST Marquez Hendrix [id number] 05/13/2013 62 y.o. Admission History and Physical [...] anxiety bc it reminds him of prior [place] pain. At cath he was found to [...] and clopidogrel per protocol. Dagoberto Amaral MD Airplane Cover Maker Pager# [phone] 05/13/2013 * Raji Novak - 05/13/2013 10:50 AM EST Pre-Cardiac Catheterization [...] anxiety bc it reminds him of prior [place] pain. Filed Vitals: 05/13/13 1046 BP: 110/70 [...] 05/16/2013 11:07 PM ESTAssociated Order(s): SCAN DOC: SILK SCREENER documented in this encounter Miscellaneous Notes * Miscellaneous - Provider, Scanning - 05/16/2013 11:07 PM EST * Miscellaneous - Provider, Scanning - 05/13/2013 2:23 PM EST * Discharge Summary - Baldemar Martínez - 05/13/2013 1:26 PM EST Inpatient Cardiology - Discharge Summary Patient Name: Marquez Hendrix Patient Age: 62 y.o. Birthdate: 1950 Admit date: 05/13/2013 Discharge date: 05/14/2013 Attending Physician: Kit Self MD Discharge Diagnoses (Hospital Problems) and Secondary Diagnoses (Chronic Problems): Active Hospital Problems Diagnosis ??? ASCVD (arteriosclerotic cardiovascular disease) Priority: High ?? Heart catheterization in [facility] in 2007 with placement of a stent in an unspecified vessel ?? Repeat heart catheterization in 2008 with placement of stents to both the LAD and circumflex ?? Followup heart catheterization in 2008 showing stable results in both vessels ?? Her current chest discomfort in a somewhat atypical pattern beginning fall ?? Nuclear stress test at [facility] in [place], [place] May 02, 2013 during which he developed left shoulder and arm discomfort during submaximal exercise on the treadmill and after which he was converted to a pharmacologic test; nuclear imaging showed ejection fraction of 45% with a partially reversible inferior defect ?? Cath [facility] 05/13/2013: 3.0 X 12 mm JON to [...] anxiety bc it reminds him of prior [place] pain. At cath he was found to [...] 10 mg by mouth nightly as needed. Reedley-3 Fatty Acids (FISH OIL) 500 mg Cap Take by mouth daily. multivitamin capsule 1 capsule Take 1 capsule by mouth daily. LANCETS MISC by Misc.(Non-Drug; Combo Route) route. lamotrigine (LAMICTAL) 100 mg tablet 100 mg Take 100 mg by mouth daily. alprazolam (XANAX XR) 3 mg 24 hr tablet 3 mg Take 3 mg by mouth every morning. [id number] (PROBIOTIC & ACIDOPHILUS) 300-250 million cell-mg Cap [...] appointments: During 8am-5pm Thursday through Thursday call [phone] to speak with a nurse in the cardiology clinic All other times call [phone] and ask to speak to the instrument and control service person inspection supervisor. Return to work: One week Driving: No driving for 48 hours after catheterization. Follow up Appointments: PCP Call for appointment in 1-2 weeks. Grinding Machine Operator Automatic You should be seen in 3-4 weeks for follow up. Follow up with Dr Nicolette maguire jun 03. Home oxygen therapy: N/A Arrangements for VNA/home care: none General Instructions None Future Appointments and Orders Future Appointments: Provider: Department: Dept Phone: Center: 06/14/2013 9:40 AM Kit Self MD Cardiology [phone] [facility] Joint Appt Nurse One Cardiology Intake, RN TOLU 4A [phone] [facility] Future Orders Please Complete By Expires Cardiac [...] Dr. Antoinette Amaral Section of Cardiology [facility] [phone] Discharge References/Attachments: Discharge References/Attachments None Signed: Baldemar Martínez DATE: 05/14/2013 documented in this encounter Plan of Treatment Upcoming Encounters Date Type Department Care Team (Late st Contact Info) Description 12/18/2023 10:00 AM EDT Hospital Encounter Non-Invasive [place] [address] Arrived documented as of this encounter Procedures Procedure Name Priority Date/Time Associated Diagnosis Comments SILK SCREENER SCAN 05/16/2013 11:07 PM EST POCT GLUCOSE Routine 05/14/2013 12:08 PM EST POCT GLUCOSE Routine 05/14/2013 7:57 AM EST EKG 12-LEAD Routine 05/14/2013 7:40 AM EST CAD (coronary artery disease) BMP W/FASTING GLUCOSE Routine 05/14/2013 3:30 AM EST DIFFERENTIAL, AUTOMATED Routine 05/14/2013 3:30 AM EST CARDIAC ENZYMES ([facility]/CGP) Routine 05/14/2013 3:30 AM EST CBC (WITH DIFF) Routine 05/14/2013 3:30 AM EST POCT GLUCOSE Routine 05/14/2013 3:10 AM EST POCT GLUCOSE Routine 05/13/2013 11:40 PM EST POCT GLUCOSE Routine 05/13/2013 10:14 PM EST POCT GLUCOSE Routine 05/13/2013 8:52 PM EST POCT GLUCOSE Routine 05/13/2013 3:55 PM EST EKG 12-LEAD Routine 05/13/2013 1:57 PM EST CAD (coronary artery disease) CARDIAC ENZYMES ([facility]/CGP) STAT 05/13/2013 1:00 PM EST POCT GLUCOSE Routine 05/13/2013 10:46 AM EST documented in this encounter Results * SCAN DOC: SILK SCREENER (05/16/2013 11:07 PM EST) Anatomical Region Laterality Modality Other Narrative 05/16/2013 11:09 PM EST Procedure Note Provider, Scanning - 05/16/2013 11:07 PM EST Scanning Provider MEDIA MGR SCAN EXT O RDR/RSLT * (ABNORMAL) POCT Glucose (05/14/2013 12:08 PM EST) POC Glucose 222(H) 60 - 199 mg/dL [facility] Comment: Supplemental ranges: <110 mg/dL before meals <200 mg/dL all other times of the day Blood specimen (specimen) 05/14/2013 12:08 PM EST 05/14/2013 12:08 PM EST Kit Self MD POINT OF CARE TEST O CARLOSERALOREE Performing Organization Address [facility] de Phone Number [facility] [employer] * POCT Glucose (05/14/2013 7:57 AM EST) POC Glucose 85 60 - 199 mg/dL [facility] [employer] Comment: Supplemental ranges: <110 mg/dL before meals <200 mg/dL all other times of the day Blood specimen (specimen) 05/14/2013 7:57 AM EST 05/14/2013 7:57 AM EST Kit Self MD POINT OF CARE TEST O [place]LOS[place]EE Performing Organization Address [facility] de Phone Number [facility] [employer] * EKG 12 Lead (05/14/2013 7:40 AM EST) Ventricular rate 72 BPM MUSE SYSTEM Atrial Rate 72 BPM MUSE SYSTEM P-R Interval 208 ms MUSE SYSTEM QRS Duration 122 ms MUSE SYSTEM Q-T Interval 416 ms MUSE SYSTEM QTC Calculated (Bezet) 455 ms MUSE SYSTEM Calculated P [place] 67 degrees MUSE SYSTEM Calculated R [place] -59 degrees MUSE SYSTEM Calculated T [place] -12 degrees MUSE SYSTEM INTERPRETATION Sinus rhythm with frequent Premature ventricular complexes Left axis deviation Inferior infarct , age undetermined Abnormal ECG When compared with ECG of 13-MAY-2013 13:57, (unconfirmed) Premature ventricular complexes are now Present T wave inversion no longer evident in Anterior leads Confirmed by MD Thomas Douglas (57) on 05/14/2013 5:02:59 PM MUSE SYSTEM [...] EST Jennifer Curry MD HEMATOLOGY ORDERABLE S [facility]EN[facility]ZI[facility] * (ABNORMAL) BMP w/fasting Glucose (05/14/2013 3:30 AM EST) [facility] Glucose Fasting 83 65 - 99 mg/dL [...] of Diabetes Mellitus, Position Statement from the [place] Diabetes Association. ??Diabetes Care, Volume 33, Supplement 1, Apr 2009 BUN 21(H) 10 - 20 mg/dL CERNER MILLENNIUM Creatinine 0.99 0.80 - 1.50 mg/dL CERNER MILLENNIUM Comment: Please note that the pediatric reference intervals supplied above were not validated at [facility]. Results from pediatric patients should be interpreted [...] In Lab Jennifer Curry MD CHEMISTRY ORDERABLES [facility] [employer] * (ABNORMAL) Cardiac Enzymes (05/14/2013 3:30 AM EST) Troponin-T 0.05(H) <=0.03 ng/mL [facility] [employer] Comment: 0.03 ng/mL: Represents the 99th percentile upper reference limit for normals. >0.03 ng/mL: Elevated cardiac troponin T level indicative of myocardial damage. Diagnosis of acute, evolving or recent [place] requires a typical rise and gradual fall [...] consensus document of the Joint Society of Cardiology/[place] College of Cardiology Committee for the redefinition of myocardial infarction. ??Journal of the [place] College of Cardiology 2000; 36: 959-969] CK, Total 62 0 - 200 unit/L [facility] [employer] Blood specimen (specimen) 05/14/2013 3:30 AM EST 05/14/2013 3:32 AM EST Narrative Resulting Agency Comment Spec In Lab Jennifer Curry MD CHEMISTRY ORDERABLES Performing Organization Address [facility] de Phone Number [facility] BENITEZIUM * (ABNORMAL) CBC (with Diff) (05/14/2013 3:30 AM EST) WBC 5.9 4.0 - 10.0 x10(3)/mcL CERNER MILLENNIUM RBC 4.24(L) 4.63 - 6.08 x10(6)/mcL CERNER MILLENNIUM Hemoglobin 12.2(L) 13.7 - 17.5 gm/dL CERNER MILLENNIUM Hematocrit 37.4(L) 40.0 - 51.0 % CERNER MILLENNIUM MCV 88.2 79.0 - 92.0 fL CERNER MILLENNIUM MCH 28.8 25.6 - 32.2 pg CERNER MILLENNIUM MCHC 32.6 32.0 - 36.5 gm/dL CERNER MILLENNIUM Platelets 185 145 - 370 x10(3)/mcL CERNER MILLENNIUM RDWSD 45.7 35.0 - 46.0 fL CERNER MILLENNIUM RDWCV 14.2 10.9 - 14.4 % CERNER MILLENNIUM MPV 9.6 9.0 - 12.0 fL CERNER MILLENNIUM Blood specimen (specimen) 05/14/2013 3:30 AM EST 05/14/2013 3:32 AM EST Narrative Resulting Agency Comment Spec In Lab Jennifer Curry MD HEMATOLOGY ORDERABLE S Performing Organization Address [facility] de Phone Number [facility]EN[facility]ZI[facility] * POCT Glucose (05/14/2013 3:10 AM EST) POC Glucose 87 60 - 199 mg/dL CERNER MILLENNIUM Comment: Supplemental ranges: <110 mg/dL before meals <200 mg/dL all other times of the day Blood specimen (specimen) 05/14/2013 3:10 AM EST 05/14/2013 3:10 AM EST Kit Self MD POINT OF CARE TEST O RDERABLES Performing Organization Address [facility]/ZIP Co de Phone Number [facility] BENITEZIUM * POCT Glucose (05/13/2013 11:40 PM EST) POC Glucose 141 60 - 199 mg/dL [facility] Comment: Supplemental ranges: <110 mg/dL before meals <200 mg/dL all other times of the day Blood specimen (specimen) 05/13/2013 11:40 PM EST 05/13/2013 11:40 PM EST Kit Self MD POINT OF CARE TEST O RDERABLES Performing Organization Address [facility] de Phone Number [facility] * (ABNORMAL) POCT Glucose (05/13/2013 10:14 PM EST) POC Glucose 224(H) 60 - 199 mg/dL [facility] Comment: Supplemental ranges: <110 mg/dL before meals <200 mg/dL all other times of the day Blood specimen (specimen) 05/13/2013 10:14 PM EST 05/13/2013 10:14 PM EST Kit Self MD POINT OF CARE TEST O RDERALOREE Performing Organization Address [facility] de Phone Number [facility] * (ABNORMAL) POCT Glucose (05/13/2013 8:52 PM EST) POC Glucose 318(H) 60 - 199 mg/dL [facility] Comment: Supplemental ranges: <110 mg/dL before meals <200 mg/dL all other times of the day Blood specimen (specimen) 05/13/2013 8:52 PM EST 05/13/2013 8:52 PM EST Kit Self MD POINT OF CARE TEST O RDERABLES Performing Organization Address [facility] de Phone Number [facility] * POCT Glucose (05/13/2013 3:55 PM EST) POC Glucose 90 60 - 199 mg/dL [facility] Comment: Supplemental ranges: <110 mg/dL before meals <200 mg/dL all other times of the day Blood specimen (specimen) 05/13/2013 3:55 PM EST 05/13/2013 3:55 PM EST Kit Self MD POINT OF CARE TEST O RDERABLES Performing Organization Address [facility] de Phone Number [facility] [employer] [facility] * EKG 12 Lead (05/13/2013 1:57 PM EST) Pathologist [facility] Ventricular rate 59 BPM MUSE SYSTEM Atrial Rate 59 BPM MUSE SYSTEM P-R Interval 224 ms MUSE SYSTEM QRS Duration 132 ms MUSE SYSTEM Q-T Interval 438 ms MUSE SYSTEM QTC Calculated (Bezet) 433 ms MUSE SYSTEM Calculated P [place] 37 degrees MUSE SYSTEM Calculated R [place] -61 degrees MUSE SYSTEM Calculated T [place] -29 degrees MUSE SYSTEM INTERPRETATION Sinus bradycardia with 1st degree A-V block Left axis deviation Non-specific intra-ventricula r conduction block T wave abnormality, consider anterolateral ischemia Abnormal ECG Confirmed by MD William, Navid (57) on 05/14/2013 3:52:55 PM MUSE SYSTEM 05/13/2013 1:57 PM EST 05/14/2013 3:52 PM EST Jennifer Curry MD ECG ORDERABLES Performing Organization Address [facility] Phone Number MUSE SYSTEM * Cardiac Enzymes (05/13/2013 1:00 PM EST) [facility] Troponin-T <0.03 <=0.03 ng/mL [facility] Comment: 0.03 ng/mL: Represents the 99th percentile upper reference limit for normals. >0.03 ng/mL: Elevated cardiac troponin T level indicative of myocardial damage. Diagnosis of acute, evolving or recent [place] requires a typical rise and gradual fall [...] consensus document of the Joint Society of Cardiology/[place] College of Cardiology Committee for the redefinition of myocardial infarction. ??Journal of the [place] College of Cardiology 2000; 36: 959-969] CK, Total 52 0 - 200 unit/L MONICA PERALTA Blood specimen (specimen) 05/13/2013 1:00 PM EST 05/13/2013 1:19 PM EST Narrative Resulting Agency Comment Spec In Lab Kit Self MD CHEMISTRY ORDERABLES Performing Organization Address [facility]/ZIP Co de Phone Number MONICA PERALTA * POCT Glucose (05/13/2013 10:46 AM EST) POC Glucose 113 60 - 199 mg/dL STACYDELM[facility] PERALTA Comment: Supplemental ranges: <110 mg/dL before meals <200 mg/dL all other times of the day Blood specimen (specimen) 05/13/2013 10:46 AM EST 05/13/2013 10:46 AM EST Kit Self MD POINT OF CARE TEST O RDERABLES Performing Organization Address [facility] Co de Phone Number MONICA PERALTA documented in this encounter Visit Diagnoses Diagnosis ASCVD (arteriosclerotic cardiovascular disease)- Primary Unspecified cardiovascular disease CAD (coronary artery disease) Coronary atherosclerosis of unspecified type of vessel, [place] or graft ASCVD (arteriosclerotic cardiovascular disease) Unspecified cardiovascular disease Atherosclerotic heart disease of [place] coronary artery with unstable angina pectoris Coronary atherosclerosis of [place] coronary artery documented in this encounter Administered [...] on Thu05/14/13 at 0900, Until Discontinued, Routine Given 05/14/2013 9:00 AM EST 75 mg diaZEPam (VALIUM) tablet 5 mg 5 mg, Oral, ONCE, 1 dose, On Thu05/13/13 at 1045, Cath (Day of Procedure), Routine Given 05/13/2013 11:10 AM EST 5 mg diphenhydrAMINE (BENADRYL) capsule 25 mg 25 mg, Oral, ONCE, 1 dose, On Thu05/13/13 at 1045, Cath (Day of Procedure), Routine Given 05/13/2013 11:10 AM EST 25 mg glipizide (GLUCOTROL) CR tablet 5 mg 5 mg, Oral, DAILY, First dose on Thu05/13/13 at 1500, Until Discontinued, Routine Given 05/14/2013 9:00 AM EST 5 mg Given 05/13/2013 4:08 PM EST 5 mg hydrochlorothiazide (HYDRODIURIL) tablet 12.5 [...] Given 05/13/2013 8:54 PM EST 4 Units lamotrigine (LAMICTAL) tablet 100 mg 100 mg, Oral, DAILY, First dose on Thu05/13/13 at 1500, Until Discontinued, Routine Given 05/14/2013 9:00 AM EST 100 mg lidocaine HCl (URO-JET) 2 % gel 1 dose, Starting on Thu05/13/13 at 1324, Until Thu05/13/13 at 1330, JOSUE LOPEZ: cabinet override Given 05/13/2013 1:30 PM EST 10 mLs lisinopril (PRINIVIL;ZESTRIL) tablet 10 mg 10 mg, Oral, DAILY, First dose on Thu05/13/13 at 1600, Until Discontinued, Routine Given 05/14/2013 9:00 AM EST 10 mg nadolol (CORGARD) tablet 20 mg 20 [...] mL/hr 200 mL/hr sodium chloride 0.9% infusion 150 mL/hr, Intravenous, CONTINUOUS, Starting on Thu05/13/13 at 1345, Until Thu05/13/13 at 2144 New Bag 05/13/2013 1:23 PM EST 150 mL/hr 150 mL/hr zolpidem (AMBIEN) tablet 10 mg 10 mg, Oral, NIGHTLY PRN, Starting on Thu05/13/13 at 1433, Until 05/14/13 at 1620, Sleep, Routine Given 05/13/2013 10:22 PM EST 10 mg documented in this encounter Active and Recently Administered Medications Times are shown in EST. Scheduled Medication Order 05/12/2013 05/13/2013 05/14/2013 aspirin EC tablet 81 mg 81 mg, Oral, DAILY, First dose on 05/14/13 at 0900, Until Discontinued, Routine 0900 (Given [...] See comment - Comment: 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 FIELD ASSESSOR) 0900 (Given - Provider: Shyanne Casillas RN) [...] See comment - Comment: 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 FIELD ASSESSOR) 0900 (Given - Provider: Shyanne Casillas RN) lisinopril (PRINIVIL;ZESTRIL) tablet 10 mg (CANCELED) 10 mg, Oral, DAILY, First dose on Thu05/13/13 at 1600, Until Discontinued, Routine 1600 (Not Given - Provider: Ely Villalpando RN - Reason: See comment - Comment: taken police captain senior) 0900 (Given - Provider: Shyanne Casillas RN) nadolol (CORGARD) tablet 20 mg (CANCELED) 20 mg, Oral, DAILY, First dose on Thu05/13/13 at 1500, Until Discontinued, Routine 1500 (Not Given - Provider: Ely Villalpando RN - Reason: See comment - Comment: took FIELD ASSESSOR) 0900 (Given - Provider: Shyanne Casillas RN) [...] hours., Routine 1705 (Given - Provider: Ely Villalpando RN)2103 (Given - Provider: Ely Villalpando RN) 0325 (Given - Provider: Jace Howard RN)0808 (Given - Provider: Shyanne Casillas, NAHUN)1345 (Given - Provider: Shyanne Casillas RN) sodium chloride 0.9% infusion (CANCELED) CONTINUOUS PRN, Starting on Thu05/13/13 at 1210, Until Thu05/13/13 at 1311, Cath (Intra-Procedure) 1210 (New Bag - Provider: Sravani Chatman RN - Comment: 500cc IV bolus during cath) zolpidem (AMBIEN) tablet 10 mg (CANCELED) 10 mg, Oral, NIGHTLY PRN, Starting on Thu05/13/13 at 1433, Until 05/14/13 at 1620, Sleep, Routine 2222 (Given - Provider: Ely Villalpando RN) No Frequency Medication Order 05/12/2013 05/13/2013 05/14/2013 lidocaine HCl (URO-JET) 2 % gel (COMPLETED) 1 dose, Starting on Thu05/13/13 at 1324, Until Thu05/13/13 at 1330, JOSUE LOPEZ: cabinet override 1330 (Given - Provider: Ned Lopez RN) documented in this encounter Care Teams Straight Knife Cutter Machine Relationship Specialty Start Date End Date Jennifer Haro MD PCP - General 01/07/12 01/30/14 documented as of this encounter
--- OUTSIDE RECORDS SUMMARY | 2023-11-03 01:31 | XMS_ITS | Encounter Summary ---
Author Organization [facility] [place] [address] Care Team Providers Care Code Number Stamper Name Role Phone Unknown Primary Care Provider Unavailabl e Reason for Visit * Reason Comments Coronary Artery Disease Encounter Details Date Type Department Care Team (Late st Contact Info) Description 09/24/2010 2:30 PM EDT Office Visit [address] [address] Mynor Will MD [facility] [address] [place] [address] CAD (coronary artery disease) (Primary Dx) Social History Tobacco Use Types Packs/Day Years Used Date Smoking Tobacco: Never Assessed Sex and Gender Information Value Date Recorded Sex Assigned at Not on file Gender Identity Not on file Sexual Orientation Not on file documented as of this encounter Progress Notes * Janki Davidson - 10/10/2010 1:07 PM EDT * Mynor Will - 09/24/2010 2:32 PM EDT Scanned [facility] att documented in this encounter Plan of Treatment Upcoming Encounters Date Type Department Care Team (Late st Contact Info) Description 12/18/2023 10:00 AM EDT Hospital Encounter Non-Invasive Cardiology Lab [facility] [place] [address] Arrived documented as of this encounter Visit Diagnoses Diagnosis CAD (coronary artery disease)- Primary Coronary atherosclerosis of unspecified type of vessel, [place] or graft documented in this encounter Care Teams Code Number Stamper Relationship Specialty Start Date End Date Unknown None PCP - General 09/24/10 10/21/10 documented as of this encounter
--- OUTSIDE RECORDS SUMMARY | 2023-11-03 01:31 | XMS_ITS | Encounter Summary ---
Author Organization [facility] Address [facility] [place] [address] Care Team Providers Care Erp Developer Name Role Phone Dewayne Mcdermott MD Primary Care Provider [phone] Reason for Visit * Reason Onset Date Comments Other 02/25/2012 assess plan Encounter Details Date Type Department Care Team (Late st Contact Info) Description 02/25/2012 Tele[place] [phone] Baldemar Crockett APRN [facility] [place]STR[place] [address] Other (assess plan) Social History Tobacco Use Types Packs/Day Years [...] Telephone Encounter - Mya Ferraro RN - 02/25/2012 4:28 PM EST 1. IBS-D: ?role of diet ?role of meds. fodmap diet. Probiotics. Imodium prn. Obtain ttg. May need to consider levsin or bentyl. May need to consider colonoscopy for colonic bx to rule out microscopiccolitis. 2. Gerd: Omeprazole 40mg qd, 30 minutes before breakfast. gerd diet and lifestyle modifications. Upper endoscopy. Unable to reach pt, ask him to return call, did emphasize omeprazole BID important to continue on his message machine. Asked him to return regarding an update on his upper and lower symptoms. documented in this encounter Plan of Treatment Upcoming Encounters Date Type Department Care Team (Late st Contact Info) Description 12/18/2023 10:00 AM EDT Hospital Encounter Non-Invasive [place] [address] Arrived documented as of this encounter Visit Diagnoses Not on filedocumented in this encounter Care Teams Erp Developer Relationship Specialty Start Date End Date Dewayne Mcdermott MD PCP - General 01/07/12 01/30/14 documented as of this encounter
--- OUTSIDE RECORDS SUMMARY | 2023-11-03 01:31 | XMS_ITS | Encounter Summary ---
Author Organization [facility] Address [facility] [place] [address] Care Team Providers Care Lodge Officer Name Role Phone Dewanye Mcdermott MD Primary Care Provider [phone] Reason for Visit * Reason Onset Date Comments Medication Refill 09/23/2013 Encounter Details Date Type Department Care Team (Late st Contact Info) Description 09/23/2013 Refill Cardiology at [address] [phone] Kit Self MD [facility] [place] [address] Medication Refill Social History Tobacco Use Types [...] AM EDT Hospital Encounter Non[place] [address] Arrived documented as of this encounter Visit Diagnoses Diagnosis ASCVD (arteriosclerotic cardiovascular disease)- Primary Unspecified cardiovascular disease documented in this encounter Care Teams Lodge Officer Relationship Specialty Start Date End Date Dewayne Mcdermott MD PCP - General 01/07/12 01/30/14 documented as of this encounter
--- OUTSIDE RECORDS SUMMARY | 2023-11-03 01:31 | XMS_ITS | Encounter Summary ---
Author Organization [facility] Address [facility] [place] [address] Care Team Providers Care Deputy Administrator Name Role Phone Iggy Sevilla MD Primary Care Provider [phone] Reason for Visit * Reason Comments Coronary Artery Disease Encounter Details Date Type Department Care Team (Late st Contact Info) Description 01/06/2012 1:15 PM EDT Office Visit [address] [address] Mynor Will MD [facility] [place] [address] CAD (coronary artery disease) (Primary Dx) Social [...] encounter Progress Notes * Janki Davidson - 01/12/2012 12:50 PM EDT * Mynor Will - 01/06/2012 1:25 PM EDT Subjective: Patient ID: Marquez Hendrix is a 61 y.o. male. HPI ROS Objective: Physical Exam Assessment and Plan: No problem-specific visit notes found for this encounter. Scanned note documented in this encounter Plan of Treatment Upcoming Encounters Date Type Department Care Team (Late st Contact Info) Description 12/18/2023 10:00 AM EDT Hospital Encounter Non-Invasive [place] [address] Arrived documented as of this encounter Visit Diagnoses Diagnosis CAD (coronary artery disease)- Primary Coronary atherosclerosis of unspecified type of vessel, kake or graft documented in this encounter Care Teams Deputy Administrator Relationship Specialty Start Date End Date Iggy Sevilla MD [address] [place] [address] [place] [address] PCP - General 10/22/10 01/06/12 documented as of this encounter
--- NOTE | 2023-11-03 07:30 | DI.US_ITS ---
Exam(s) US RENAL EXAM: US RENAL CLINICAL HISTORY: monitor known left stone,CYSTS,N20.0. TECHNIQUE: Henry scale, color and spectral Doppler were used. COMPARISON: US US RENAL from 11/04/[address] THORAX ABD/PEL CTA from 02/18/2023 FINDINGS: Right kidney: 11.3cm Echogenicity: Normal Hydronephrosis: No Cyst or mass: No Nephrolithiasis: No Left kidney: 12.2cm Echogenicity: Normal Hydronephrosis: No Cyst or mass: 3 cysts noted, largest measuring 3.6 cm in diameter midpole lateral. Smaller cysts are located inferiorly. Nephrolithiasis: 5 millimeter nonobstructing stone lower pole. Bladder:Normal. Both ureteral jets were visualized. Prevoid vol:125 cc Postvoid vol:9 cc Prostate volume measured at 20 cc. IMPRESSION: 5 millimeter stone lower pole left kidney. Stable simple cysts. DATA REPOSITORY:
== END ==
PROVIDERS: PCP Student in an Organized Health Care Education/Training Program; Visit Provider Urology
DX: N20.0 Calculus of kidney (principal)
CPT/HCPCS: 76770

== ENCOUNTER 2023-12-09 08:58 | Outpatient (CLI) | payer OTHER, SELFPAY | END 2023-12-09 08:59 | disposition home or self-care (01) | LOC: DI.CARD 08:59 | PROVIDERS: PCP Student in an Organized Health Care Education/Training Program; Visit Provider Student in an Organized Health Care Education/Training Program | CPT/HCPCS: 93010 ==

== ENCOUNTER 2023-12-28 08:16 | Outpatient (CLI) | payer OTHER, SELFPAY | END 2023-12-28 08:17 | disposition home or self-care (01) | LOC: DI.CARD 08:17 | PROVIDERS: PCP Student in an Organized Health Care Education/Training Program; Visit Provider Internal Medicine Cardiovascular Disease | CPT/HCPCS: 93010 ==

== ENCOUNTER 2024-04-19 15:18 | Outpatient (REF) | payer OTHER, SELFPAY ==
--- OUTSIDE RECORDS SUMMARY | 2024-04-19 15:20 | XMS_ITS | Encounter Summary ---
Author Organization [facility] Address [address] [place] [address] Care Team Providers Care Script Coordinator Name Role Phone Iggy Sevilla MD Primary Care Provider [phone] Encounter Details Date Type Department Care Team (Late st Contact Info) Description 12/17/2018 Results Only [facility] [phone] Brandi Hartman MD [address] [place] [phone] Social History Tobacco Use Types Packs/Day Years Used Date Smoking Tobacco: Former Cigarettes 0 04/20/1966 - 04/20/1986 Alcohol Use Standard Drinks/Week Comments No 0 (1 standard drink = 0.6 oz pur e alcohol) Sex and Gender Information Value Date Recorded Sex Assigned at Not on file Legal Sex Male 18:54 EST Gender Identity Not on file Sexual Orientation Not on file documented as of this encounter Mental Status * Because of a physical, mental, or emotional condition, do you have serious difficulty concentrating, remembering, or making decisions? (5 years old or older) Answer Entry Date Author 03/24/2011 8:23 EST Col andriy Peña documented in this encounter Plan of Treatment [...] ? MARQUEZ HENDRIX ? Accession #: ? [id number] ? : ? 1950 (Age: 68) ??M [...] (ASCP) 12/17/2018 7:07 PM End of Report [facility] 12/17/2018 16:3 3 EDT 12/17/2018 16:33 EDT us Brandi Hartman MD PATHOLOGY ORDERABLES Final Resul t [facility] [address] [place] [address] documented in this encounter Visit Diagnoses Not on filedocumented in this encounter Care Teams Script Coordinator Relationship Specialty Start Date End Date Iggy Sevilla MD [address] [place] [phone] PCP - General 03/24/11 12/19/18 documented as of this encounter
--- OUTSIDE RECORDS SUMMARY | 2024-04-19 15:20 | XMS_ITS | Clinical Summary ---
Author Organization [facility] Address [address] [place] [address] Care Team Providers Care Keno Dealer Name Role Phone Dewayne Carrington MD Primary Care Provider [phone] Allergies No known active allergies Medications aspirin chewable 81 mg tablet Take 81 mg by mouth daily. Active exenatide (BYETTA) 10 mcg/0.04 mL injection Inject 10 mcg into the skin 2 times daily. Active glipiZIDE (GLUCOTROL) 2.5 mg CR tablet Take 5 mg by mouth daily. Active lisinopril (PRINIVIL, ZESTRIL) 10 mg tablet Take 10 mg by mouth daily. Active metformin (GLUCOPHAGE) 1,000 mg tabletIndicatio ns:type 2 diabetes mellitus Take 1,000 mg by mouth 2 times daily. Indications: TYPE 2 DIABETES MELLITUS Active nadolol (CORGARD) 20 mg tabletIndicatio ns:hypertension Take 20 mg by mouth daily. Indications: HYPERTENSION Active nortriptyline (PAMELOR) 50 mg capsuleIndicati ons:depression Take 100 mg by mouth at bedtime. Indications: DEPRESSION Active nicotine polacrilex (NICORETTE) 4 mg gumIndications: nicotine withdrawal symptoms Take 4 mg by mouth as needed. Indications: NICOTINE WITHDRAWAL SYMPTOMS Active clopidogrel (PLAVIX) 75 mg tablet Take 75 mg by mouth daily. Active Active Problems Problem Noted Date Diagnosed Date Coronary atherosclerosis 04/11/2011 Overview (04/11/2011): S/p PCI stent Nephrolithiasis 04/11/2011 Major depressive disorder 04/10/2011 Diabetes mellitus ([facility]) 03/24/2011 Social History Tobacco Use Types Packs/Day [...] Last Done Comments Hepatitis C Screen 1950 Fall Risk Screening 2014 COVID-19 Vaccine (2023- season) 2023 RSV Immunization ( o r 60+ Years) (1 - 1-dose 75+ series) 2024 Advance Directives For more information, please contact: [phone] Documents on File Type Date Recorded Patient Refining Still Operator Expl anation Advance Directive 05/15/2011 4:39 DPOA 04/30 * Full Code (Latest Code Status on File) Date Activated Date Inactivated Comments 03/22/2011 18:42 05/05/2011 15:10 Care Teams Keno Dealer Relationship Specialty Start Date End Date Dewayne Carrington MD [address] [place] [address] PCP - General 12/20/18
--- OUTSIDE RECORDS SUMMARY | 2024-04-19 15:20 | XMS_ITS | Referral Summary ---
Author Organization [facility] Address [address] [place] [address] Care Team Providers Care Supervisor Bottle Machines Name Role Phone Dewayne Carrington MD Primary Care Provider [phone] Allergies No known active allergies Medications aspirin [...] 04/11/2011 Major depressive disorder 04/10/2011 Diabetes mellitus ([facility]) 03/24/2011 Social History Tobacco Use Types Packs/Day [...] Body Mass Index 29.26 03/22/2011 2019 EST Mental Status * Because of a physical, mental, or emotional condition, do you have serious difficulty concentrating, remembering, or making decisions? (5 years old or older) Answer Entry Date Author 03/24/2011 8:23 EST Col andriy Peña Plan of Treatment Not on file Advance Directives For more information, please contact: [phone] Documents on File Type Date Recorded Patient Brand Protection Manager Expl anation Advance Directive 05/15/2011 4:39 DPOA 04/30 * Full Code (Latest Code Status on File) Date Activated Date Inactivated Comments 03/22/2011 18:42 05/05/2011 15:10 Care Teams Supervisor Bottle Machines Relationship Specialty Start Date End Date Deway[place] [address] PCP - General 12/20/18
--- OUTSIDE RECORDS SUMMARY | 2024-04-19 15:20 | XMS_ITS | Encounter Summary ---
Author Organization [facility] Address [address] [place] [address] Care Team Providers Care Hire Car Driver Name Role Phone Dewayne Carrington MD Primary Care Provider [phone] Encounter Details Date Type Department Care Team (Late st Contact Info) Description 05/21/2019 Lab Requisition [facility] Pathology & Laboratory Medicine - [facility] [address] [place] [address] Unknown, Provider, Social History Tobacco Use Types Packs/Day Years [...] Surface Ag Negative Negative 05/23/2019 9:35 EST [facility] Blood VENOUS BLOOD / Unknown 05/20/2019 14:15 EST 05/22/2019 15:55 EST us Provider Unknown CHEMISTRY & BLOOD GAS ORDERA BLES Final Result [facility] [address] [place] [address] documented in this encounter Visit Diagnoses Not on filedocumented in this encounter Care Teams Hire Car Driver Relationship Specialty Start Date End Date Dewayne Carrington MD [facility] [place] [address] PCP - General 12/20/18 documented as of this encounter
--- OUTSIDE RECORDS SUMMARY | 2024-04-19 15:20 | XMS_ITS | Encounter Summary ---
Author Organization [facility] Address [address] [place] [address] Care Team Providers Care Enterostomal Therapy Nurse Name Role Phone Dewayne Carrington MD Primary Care Provider [phone] Encounter Details Date Type Department Care Team (Late st Contact Info) Description 12/26/2022 Lab Requisition [facility] Pathology & Laboratory Medicine - [facility] [address] [place], [place] [address] Outr Resulting Lab, Provider Social History Tobacco [...] 57.7 55.8 - 66.1 % 12/29/2022 13:12 [facility] Albumin g/dL 3.8 3.6 - 5.2 g/dL 12/29/2022 13:12 [facility] Alpha-1 % 4.5 2.9 - 4.9 % 12/29/2022 13:12 [facility] Alpha-1 g/dL 0.30 0.15 - 0.40 g/dL 12/29/2022 13:12 [facility] Alpha-2 % 16.9(H) 7.1 - 11.8 % 12/29/2022 13:12 [facility] Alpha-2 g/dL 1.10(H) 0.50 - 1.00 g/dL 12/29/2022 13:12 [facility] Beta % 11.8 8.4 - 13.1 % 12/29/2022 13:12 [facility] Beta g/dL 0.80 0.60 - 1.20 g/dL 12/29/2022 13:12 [facility] Gamma % 9.1(L) 11.1 - 18.8 % 12/29/2022 13:12 [facility] Gamma g/dL 0.60 0.60 - 1.60 g/dL 12/29/2022 13:12 [facility] SPEP Comment No apparent monoclonal protein seen on serum electrophoresis 12/29/2022 13:12 [facility] Comment:See scanned/suppleme ntary report. Total Protein 6.6 6.3 - 8.2 g/dL 12/29/2022 13:12 [facility] Blood VENOUS BLOOD / Unknown 12/26/2022 15:53 EDT 12/26/2022 22:00 EDT us Provider Outr Resulting Lab CHEMISTRY & BLOOD GA S ORDERABLES Final Result Performing Organization Address [facility] Co de Phone Number [facility] [address] [place] [address] * PROTEIN, TOTAL (12/26/2022 15:53 EDT) Blood VENOUS BLOOD / Unknown 12/26/2022 15:53 EDT 12/26/2022 22:00 EDT us Provider Outr Resulting Lab CHEMISTRY & BLOOD GA S ORDERABLES Final Result Performing Organization Address [facility] Co de Phone Number [facility] [address] [place] [address] documented in this encounter Visit Diagnoses Not on filedocumented in this encounter Care Teams Enterostomal Therapy Nurse Relationship Specialty Start Date End Date Dewayne Carrington MD [address] [place] [address] PCP - General 12/20/18 documented as of this encounter
--- OUTSIDE RECORDS SUMMARY | 2024-04-19 15:20 | XMS_ITS | Encounter Summary ---
Author Organization [facility] Address [address] [place] [address] Care Team Providers Care Target Aircraft Technician Name Role Phone Dewayne Carrington MD Primary Care Provider [phone] Encounter Details Date Type Department Care Team (Late st Contact Info) Description 05/12/2019 Lab Requisition [facility] Pathology & Laboratory Medicine - [facility] [address] [place] [address] Unknown, Provider, Social History Tobacco Use Types [...] 6.3 - 8.2 g/dL 05/13/2019 14:16 EST [facility] Albumin % 57.9 55.8 - 66.1 % 05/13/2019 14:[address] [facility] Alpha-1 % 4.3 2.9 - 4.9 % 05/13/2019 14:[address] [facility] Alpha-2 % 15.9(H) 7.1 - 11.8 % 05/13/2019 14:[address] [facility] Beta % 12.6 8.4 - 13.1 % 05/13/2019 14:[address] [facility] Gamma % 9.3(L) 11.1 - 18.8 % 05/13/2019 14:[address] [facility] SPEP Comment No apparent monoclonal protein seen on serum electrophoresis 05/13/2019 14:[address] [facility] Comment:See scanned/suppleme ntary report. Blood VENOUS BLOOD / Unknown 05/12/2019 10:00 EST 05/12/2019 21:33 EST us Provider Unknown CHEMISTRY & BLOOD GAS ORDERA BLES Final Result Performing Organization Address City/State/[facility] Co de Phone Number [facility] [address] [place] [address] documented in this encounter Visit Diagnoses Not on filedocumented in this encounter Care Teams Target Aircraft Technician Relationship Specialty Start Date End Date Dewayne Carrington MD [address] [place] [address] PCP - General 12/20/18 documented as of this encounter
--- OUTSIDE RECORDS SUMMARY | 2024-04-19 15:20 | XMS_ITS | Encounter Summary ---
Author Organization [facility] Address [address] [place] [address] Care Team Providers Care Behavioral Science Chair Name Role Phone Iggy Sevilla MD Primary Care Provider [phone] Encounter Details Date Type Department Care Team (Latest Contact Info) Description 12/17/2018 14:48 EDT - 12/17/2018 23:59 EDT Hospital Encounter [address] [address] Unknown, Provider, MD Discharge Disposition: Home or Self Care [...] Col andriy Peña documented in this encounter Medications at Time of Discharge aspirin chewable 81 mg tablet Take 81 [...] by mouth daily. metformin (GLUCOPHAGE) 1,000 mg tabletIndication s:type 2 diabetes mellitus Take 1,000 mg by mouth 2 times daily. Indications: TYPE 2 DIABETES MELLITUS nadolol (CORGARD) 20 mg tabletIndication s:hypertension Take 20 mg by mouth daily. Indications: HYPERTENSION nicotine polacrilex (NICORETTE) 4 mg gumIndications:n icotine withdrawal symptoms Take 4 mg by mouth as needed. Indications: NICOTINE WITHDRAWAL SYMPTOMS nortriptyline (PAMELOR) 50 mg capsuleIndicatio ns:depression Take 100 mg by mouth at bedtime. Indications: DEPRESSION documented as of this encounter Discharge Disposition Disposition Code Departure Means Destination Home or Self Skilled Nursing documented in this encounter Plan of Treatment Not on file documented as of this encounter Visit Diagnoses Not on filedocumented in this encounter Care Teams Behavioral Science Chair Relationship Specialty Start Date End Date Iggy Sevilla MD [address] [place] [address] PCP - General 03/24/11 12/19/18 documented as of this encounter
--- OUTSIDE RECORDS SUMMARY | 2024-04-19 15:20 | XMS_ITS | Encounter Summary ---
Author Organization [facility] Address [address] [place] [address] Care Team Providers Care Daycare Teacher Name Role Phone Dewayne Carrington MD Primary Care Provider [phone] Encounter Details Date Type Department Care Team (Late st Contact Info) Description 12/20/2020 Lab Requisition [facility] Pathology & Laboratory Medicine - [facility] [address] [place], [place] [address] Outr Resulting Lab, Provider Social History Tobacco [...] 1.7 - 2.8 mg/dL 12/20/2020 16:50 EDT [facility] Blood VENOUS BLOOD / Unknown 12/19/2020 14:45 EDT 12/20/2020 16:30 EDT us Provider Outr Resulting Lab CHEMISTRY & BLOOD GA S ORDERABLES Final Result [facility] [address] [place] [address] documented in this encounter Visit Diagnoses Not on filedocumented in this encounter Care Teams Daycare Teacher Relationship Specialty Start Date End Date Dewayne Carrington MD [address] [place] [address] PCP - General 12/20/18 documented as of this encounter
--- OUTSIDE RECORDS SUMMARY | 2024-04-19 15:21 | XMS_ITS | Encounter Summary ---
Author Organization [facility] Address [address] [place] [address] Care Team Providers Care Non Destructive Testing Inspector Name Role Phone Iggy Sevilla MD Primary Care Provider [phone] Reason for Visit * Reason Onset Date Comments Procedure 04/24/2011 Encounter Details Date Type Department Care Team (Late st Contact Info) Description 04/24/2011 Pre-Procedure Orders Encounter [facility] Psychiatric Consultation Program - [address] [address] Juwan Sawant MD [address] [place] [address] [address] [place] [phone] Social History Tobacco Use Types Packs/Day Years [...] on filedocumented in this encounter Care Teams Non Destructive Testing Inspector Relationship Specialty Start Date End Date Iggy Sevilla MD [address] [place] [phone] PCP - General 03/24/11 12/19/18 documented as of this encounter
--- OUTSIDE RECORDS SUMMARY | 2024-04-19 15:21 | XMS_ITS | Encounter Summary ---
Author Organization [facility] Address [address] [place] [address] Care Team Providers Care Hydraulic Mechanic Name Role Phone Iggy Sevilla MD Primary Care Provider [phone] Reason for Visit * Reason Onset Date Comments Procedure 04/25/2011 Encounter Details Date Type Department Care Team (Late st Contact Info) Description 04/25/2011 Pre-Procedure Orders Encounter [facility] Psychiatric Consultation Program - [address] [address] Juwan Sawant MD [address] [place] [address] [address] [place] [phone] Social History Tobacco Use Types Packs/Day Years [...] on filedocumented in this encounter Care Teams Hydraulic Mechanic Relationship Specialty Start Date End Date Iggy Sevilla MD [address] [place] [phone] PCP - General 03/24/11 12/19/18 documented as of this encounter
--- OUTSIDE RECORDS SUMMARY | 2024-04-19 15:21 | XMS_ITS | Encounter Summary ---
Author Organization [facility] Address [address] [place] [address] Care Team Providers Care Drafter Name Role Phone Iggy Sevilla MD Primary Care Provider Reason for Visit * Reason Onset Date Comments Procedure 05/01/2011 Encounter Details Date Type Department Care Team (Late st Contact Info) Description 05/01/2011 Pre-Procedure Orders Encounter [facility] Psychiatric Consultation Program - [address] [address] Juwan Sawant MD [address] [place] [address] [address] [place] [phone] Social History Tobacco Use Types Packs/Day Years [...] on filedocumented in this encounter Care Teams Drafter Relationship Specialty Start Date End Date Iggy Sevilla MD [address] [place] [phone] PCP - General 03/24/11 12/19/18 documented as of this encounter
--- OUTSIDE RECORDS SUMMARY | 2024-04-19 15:21 | XMS_ITS | Encounter Summary ---
Author Organization [facility] Address [address] [place] [address] Care Team Providers Care Armored Truck Driver Name Role Phone Iggy Sevilla MD Primary Care Provider [phone] Reason for Visit * Reason Onset Date Comments Procedure 04/22/2011 Encounter Details Date Type Department Care Team (Late st Contact Info) Description 04/22/2011 Pre-Procedure Orders Encounter [facility] Psychiatric Consultation Program - [address] [address] Juwan Sawant MD [address] [place] [address] [address] [place] [phone] Social History Tobacco Use Types Packs/Day Years [...] on filedocumented in this encounter Care Teams Armored Truck Driver Relationship Specialty Start Date End Date Iggy Sevilla MD [address] [place] [phone] PCP - General 03/24/11 12/19/18 documented as of this encounter
--- OUTSIDE RECORDS SUMMARY | 2024-04-19 15:21 | XMS_ITS | Encounter Summary ---
Author Organization [facility] Address [address] [place] [address] Care Team Providers Care Boarding [employer] C[employer] Operator Name Role Phone Iggy Sevilla MD Primary Care Provider [phone] Reason for Visit * Reason Onset Date Comments Procedure 04/29/2011 Encounter Details Date Type Department Care Team (Late st Contact Info) Description 04/29/2011 Pre-Procedure Orders Encounter [facility] - [address] [address] Juwan Sawant MD [address] [place] [address] [address] [place] [id number] Social History Tobacco Use Types Packs/Day Years [...] on filedocumented in this encounter Care Teams Boarding [employer] Or Cattery Operator Relationship Specialty Start Date End Date Iggy Sevilla MD [address] [place] [phone] PCP - General 03/24/11 12/19/18 documented as of this encounter
--- OUTSIDE RECORDS SUMMARY | 2024-04-19 15:21 | XMS_ITS | Encounter Summary ---
Author Organization [facility] Address [address] [place] [address] Care Team Providers Care Medical Orderly Name Role Phone None, Provider Primary Care Provider Iggy Linda MD Primary Care Provider [phone] Encounter Details Date Type Department Care Team ([facility] st Contact Info) Description 03/22/2011 17:44 EST - 05/05/2011 12:17 EST Hospital Encounter [facility] Inpatient Psychiatry Unit [address] [place] [address] Sajan Stanford MD [address] [facility] Level [address] [place] [address] Mary Jauregui MD Munson, Richard [...] 03/22/2011 2019 EST documented in this encounter Mental Status * Because of a physical, mental, or emotional condition, do you have serious difficulty concentrating, remembering, or making decisions? (5 years old or older) Answer Entry Date Author 03/24/2011 8:23 EST Col andriy Peña documented in this encounter Discharge Summaries * Mary Jauregui MD - 03/26/2011 1117 EST INPATIENT PSYCHIATRIC DISCHARGE SUMMARY Patient Name: Shahnaz Santiago : 1950 Date of Admission: 03/22/2011 Date of Discharge: 05/05/2011 Attending at time of discharge: Mary Jauregui MD DISCHARGE DIAGNOSIS Marietta I: Major Depression, single episode, with psychotic features. Marietta II: Deferred Marietta III: HTN, CAD s/p PCI with stent, type II DM, h/o nephrolithiasis, s/p cholecystectomy Marietta IV: , unemployed, recently relocated Marietta V: GAF on admission: 19 ; on [...] Mr. Santiago, who was discharged from the [facility] on 03/19/11 after a two week [...] ultimately requiring voluntary inpatient psychiatric treatment in [place], [place], where Mr. Santiago and his had lived for many years. During that admission, Mr. Santiago was started on a regimen including duloxetine and mirtazapine. In May of 2010, at the end of that stay, Mr. Santiago's daughter travelled to [place], helped him sell his home, and moved him and his belongings to [place], where she rented an apartment in [place]. 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 Santiago has appeared progressively aimless and lacking in motivation. While his house has remained neat and senior risk analyst, Mr. Santiago has begun to sleep late and has become socially isolated. He seems hopeless and unhappy. In mid-February, when Mr. Sals symptoms became intolerable, he was assessed by a turkish line attendant at [facility], where he answered affirmatively to questions about suicidal ideation. An admission to the [facility] was arranged, and under the care of Dr. Banegas, Mr. Sals regimen was changed, and in place of duloxetine and mirtazapine, perphenazine, nortriptyline, and zolpidem were started. On 03/19/11, two weeks after admission, Mr. Santiago discharged against medical advice. That evening, he was transported to the [facility] ED again by his daughter, who was impressed with the intensityof her father's symptoms. He again underwent Crisis assessment. Mr. Santiago was discharged home, but was readmitted to [facility] the following morning (03/21/11) after being [...] in italics.) The patient was admitted to [facility] Inpatient Psychiatry unit involuntarily. History was [...] weaned appropriately. On 04/08, Perphenazine was discontinued. Ibdxhimd66/30, Ativan was tapered and discontinuedon 04/29. Oxycodone- [...] Discharge Medications: Shahnaz Santiago Home Medication Instructions NANETTE:[id number] Printed on:05/06/112023 Medication Information aspirin chewable 81 [...] Disposition: To new apt near daughter in [facility] Discharge Plans/Follow-up Appointments: - Please keep your appointment on May 05 at 5pm with psychotherapist Vineet Caro. [address] [place] [address]. . - Please keep your appointment on May 22 at 1pm for medication management with Iggy Tenorio MD at [facility], [address] [place] [address]. . - Follow-up with Dr. Hampton (PCP) in [facility] on June 10. Mental Health Crisis Services: [facility] Prescriptions sent to [facility] in [facility]. Total time spent on day of discharge: 40 min Mary Jauregui MD Attending Psychiatrist cc: Iggy Tenorio MD [facility], [place] documented in this encounter Discharge Instructions * Discharge Instructions* Josue Ward MD - 05/05/2011 11:42 EST Additional Medication Instructions: Do not use alcohol Do no use illicit drugs Do not take any medications that were not prescribed Consult with a physician before starting any new herbal supplements or hgrg-srb-aumhalt medications, as some of these may interact with your prescribed medication. Discharge Plans/Follow-up Appointments: - Please keep your appointment on May 05 at 5pm with psychotherapist Vineet Caro. [address] [place] [address]. . - Please keep your appointment on May 22 at 1pm for medication management with Iggy Tenorio MD at [facility], [address] [place] [address]. . - Follow-up with Dr. Hampton (PCP) in [facility] on June 10. Mental Health Crisis Services: [facility] Prescriptions sent to Mis Campbell in [facility]. documented in this encounter Medications [...] by mouth daily. metformin (GLUCOPHAGE) 1,000 mg tabletIndications:typ e 2 diabetes mellitus Take 1,000 mg by mouth 2 times daily. Indications: TYPE 2 DIABETES MELLITUS nadolol (CORGARD) 20 mg tabletIndications:hyp ertension Take 20 mg by mouth daily. Indications: HYPERTENSION nicotine polacrilex (NICORETTE) 4 mg gumIndications:nicoti ne withdrawal symptoms Take 4 mg by mouth as needed. Indications: NICOTINE WITHDRAWAL SYMPTOMS nortriptyline (PAMELOR) 50 mg capsuleIndications:de pression Take 100 mg by mouth at bedtime. Indications: DEPRESSION clopidogrel (PLAVIX) 75 mg tablet Take 1 Tab by mouth daily for 14 days. 14 Tab 1 2 05/19/19 12 exenatide (BYETTA) 10 mcg/0.04 mL injection Inject 0.04 mL into the skin 2 times daily with meals for 14 days. 1.12 mL 1 2 05/19/19 12 Fenofibrate Nanocrystallized (TRICOR) 145 mg Tab Take 1 Tab by mouth daily for 14 days. 14 Tab 1 2 05/19/19 12 glipiZIDE (GLUCOTROL) 5 mg CR tablet Take 1 Tab by mouth daily for 14 days. 14 Tab 1 2 05/19/19 12 lisinopril (PRINIVIL, ZESTRIL) 10 mg tablet Take 1 Tab by mouth daily for 14 days. 14 Tab 1 2 05/19/19 12 metformin (GLUCOPHAGE) 1,000 mg tabletIndications:typ e 2 diabetes mellitus Take 1 Tab by mouth 2 times daily for 14 days. Indications: TYPE 2 DIABETES MELLITUS 28 Tab 1 2 05/19/19 12 nadolol (CORGARD) 20 mg tabletIndications:hyp ertension Take 1 Tab by mouth daily for 14 days. Indications: HYPERTENSION 14 Tab 1 2 05/19/19 12 nortriptyline (PAMELOR) 50 mg capsuleIndications:de pression Take 2 Caps by mouth at bedtime for 14 days. Indications: DEPRESSION 28 Cap 1 2 05/19/19 12 zolpidem (AMBIEN) 10 mg tablet Take 1 Tab by mouth at bedtime for 14 days. 14 Tab 1 2 05/19/19 12 documented as of this encounter Ordered Prescriptions Prescription Sig Dispense Quantity Refills Last Filled Start Date End Date zolpidem (AMBIEN) 10 mg tablet Take 1 Tab by mouth at bedtime for 14 days. 14 Tab 1 2 05/19/19 12 nortriptyline (PAMELOR) 50 mg capsuleIndications:de pression Take 2 Caps by mouth at bedtime for 14 days. Indications: DEPRESSION 28 Cap 1 2 05/19/19 12 nadolol (CORGARD) 20 mg tabletIndications:hyp ertension Take 1 Tab by mouth daily for 14 days. Indications: HYPERTENSION 14 Tab 1 2 05/19/19 12 metformin (GLUCOPHAGE) 1,000 mg tabletIndications:typ e 2 diabetes mellitus Take 1 Tab by mouth 2 times daily for 14 days. Indications: TYPE 2 DIABETES MELLITUS 28 Tab 1 2 05/19/19 12 lisinopril (PRINIVIL, ZESTRIL) 10 mg tablet Take 1 Tab by mouth daily for 14 days. 14 Tab 1 2 05/19/19 12 glipiZIDE (GLUCOTROL) 5 mg CR tablet Take 1 Tab by mouth daily for 14 days. 14 Tab 1 2 05/19/19 12 Fenofibrate Nanocrystallized (TRICOR) 145 mg Tab Take 1 Tab by mouth daily for 14 days. 14 Tab 1 2 05/19/19 12 exenatide (BYETTA) 10 mcg/0.04 mL injection Inject 0.04 mL into the skin 2 times daily with meals for 14 days. 1.12 mL 1 2 05/19/19 12 clopidogrel (PLAVIX) 75 mg tablet Take 1 Tab by mouth daily for 14 days. 14 Tab 1 2 05/19/19 12 documented in this encounter Discharge Disposition Disposition Code Departure Means Destination Home or Self Care documented in this encounter Progress Notes * DIESEL TECHNICIAN, LIYA 2 - 07/23/2011 1031 EDT * Drywall Taper, Liya - 05/13/2011 0839 EST * Katarzyna [...] 05/05/2011 1024 EST Active Multi-Disciplinary problems: NUTRITION [298330] (04/07/11) Patient Active Problem List Diagnoses ??? Diabetes mellitus ??? Major depression ??? CAD (coronary artery disease) ??? Nephrolithiasis Data: Remained somewhat depressed and anxious about discharge today. Stated that he felt much better at time of discharge. Fingerstick was 120 at 0803. Packed his belongings and By[place] and needles were returned to patient. Medications were called into the [facility] in [facility]. Was discharged by Dr. Ward. [...] patient. Did not verbalize suicidal ideation. The patient'anater came to drive her father home to [facility]. Left at 1217 with belongings and his daughter. Tamika Cordero RN 05/05/2011 10:25 * Shahnaz Lou MD - 05/04/2011 1229 EST ATTENDING MOTOR VEHICLE EMISSIONS INSPECTOR NOTE REASON FOR HOSPITALIZATION: Depression HOSPITAL DAY: 43 INTERIM HISTORY: Had ECT Thursday, slept 7 hours last night after taking ambien and atarax. Says he feels much better than when I came in and is looking forward to discharge sometime this coming week. Plans to have an apartment in [facility] near his daughter. Says he [...] next week Shahnaz Lou MD Attending Psychiatrist head refrigeration engineer Pager [phone] * Shahnaz Lou MD - 05/03/2011 1346 EST ATTENDING MOTOR VEHICLE EMISSIONS INSPECTOR NOTE REASON FOR HOSPITALIZATION: Depression HOSPITAL DAY: 42 INTERIM HISTORY: Had ECT yesterday, slept 7 hours last night. Says he feels much better than when I came in and is looking forward to discharge sometime this coming week. Plans to have an apartment[facility] near his daughter. EXAM: Elderly [...] next week Shahnaz Lou MD Attending Psychiatrist head refrigeration engineer Pager [phone] * Alice Fatima RN - 05/03/2011 0917 EST Active Multi-Disciplinary problems: ALTERED THOUGHT PROCESSES [872933] (03/22/11) ALTERATION IN SLEEP [395259] (03/23/11) KNOWLEDGE DEFICIT [988005] (04/07/11) NUTRITION [104910] (04/07/11) RISK FOR INFECTION [381186] (04/07/11) GLYCEMIA IMBALANCE [104334] (04/07/11) ANXIETY [515947] (04/09/11) Ineffective Coping [365528] (04/09/11) SELF CARE DEFICIT [586101] (04/09/11) ALTERATION IN MOOD [152248] (04/09/11) Discharge Planning [756247] (04/27/11) Data: The pt is unable to determine if ECT was helpful because of being taken off Perphenazine at the same time. He is planning for discharge on Thursday. Denies pain and denies thoughts of self harm. Eating OK, slept well last night, has been attending to ADL's. He believes his blood glucose is more stable on By. Spoke of moving in next to daughter,his [...] down. Alice Fatima RN 05/03/2011 9:18 * Mary Jauregui MD - 05/02/2011 1448 EST Inpatient Psychiatry [...] 10 mg Oral QHS ??? influenza vaccine [id number] (PF) (FLUZONE) 45 mcg (15 mcg x [...] Fingerstick 153 (*) 70 - 100 (mg/dl) Pumper Gauger ID [id number] GLUCOSE, GLUCOMETER Collection Time 05/01/11 2051 Component Value Range Glucose, Fingerstick 184 (*) 70 - 100 (mg/dl) Pumper Gauger ID [id number] GLUCOSE, GLUCOMETER Collection Time 05/02/11 0830 Component Value Range Glucose, Fingerstick 125 (*) 70 - 100 (mg/dl) Pumper Gauger ID [id number] GLUCOSE, GLUCOMETER Collection Time 05/02/11 1155 Component Value Range Glucose, Fingerstick 283 (*) 70 - 100 (mg/dl) Pumper Gauger ID [id number] Assessment/Formulation: Mr. Santiago is a 60-year-old man [...] looks forward to therapy as anoutpatient. Diagnosis: Marietta I: Major depression, recurrent, with psychotic features. Marietta II: Deferred Marietta III: HTN, CAD s/p PCI with stent, [...] the resident's note. MARY JAUREGUI MD Pager [phone] Attending, Inpatient Psychiatry, [facility] * Mary Jauregui MD - 05/01/2011 [...] He did not want to see a credit collection specialist when offered (he already had seen one and said he had a book to help him with meals). 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 influenza vaccine [id number] (PF) (FLUZONE) 45 mcg (15 mcg x [...] Fingerstick 142 (*) 70 - 100 (mg/dl) Pumper Gauger ID [id number] GLUCOSE, GLUCOMETER Collection Time 05/01/11 0801 Component Value Range Glucose, Fingerstick 124 (*) 70 - 100 (mg/dl) Pumper Gauger ID [id number] GLUCOSE, GLUCOMETER Collection Time 05/01/11 1203 Component Value Range Glucose, Fingerstick 124 (*) 70 - 100 (mg/dl) Pumper Gauger ID [id number] GLUCOSE, GLUCOMETER Collection Time 05/01/11 1657 Component Value Range Glucose, Fingerstick 153 (*) 70 - 100 (mg/dl) Pumper Gauger ID [id number] Assessment/Formulation: Mr. Santiago is a 60-year-old man [...] and daughter. MADRS score today by Vineet Schwartz was 8. ECT #12 tomorrow. He decided against going out on pass today because he didn't feel well but will consider trying again tomorrow. Diagnosis: Marietta I: Major depression, recurrent, with psychotic features. Marietta II: Deferred Marietta III: HTN, CAD s/p PCI with stent, [...] the resident's note. MARY JAUREGUI MD Pager [phone] Attending, Inpatient Psychiatry, [facility] * Gil Tamika M - 05/01/2011 0568 EST Active Multi-Disciplinary problems: ALTERED THOUGHT PROCESSES [615455] (03/22/11) ALTERATION IN SLEEP [395571] (03/23/11) KNOWLEDGE DEFICIT [332410] (04/07/11) NUTRITION [568760] (04/07/11) RISK FOR INFECTION [383733] (04/07/11) GLYCEMIA IMBALANCE [049992] (04/07/11) ANXIETY [991968] (04/09/11) Ineffective Coping [586392] (04/09/11) SELF CARE DEFICIT [816029] (04/09/11) ALTERATION IN MOOD [361305] (04/09/11) Discharge Planning [712694] (04/27/11) Patient Active Problem List Diagnoses ??? Diabetes mellitus ??? Major depression ??? CAD (coronary artery disease) ??? Nephrolithiasis Data: Will be npo after midnight for ECT in the morning. Give no benzos after 1900. Will need a maria isabel prior to leaving for treatment. [place] ready for discharge on Thursday and continued [...] express suicidal ideation. Remained future oriented. Tamika Cordero RN 05/01/2011 14:17 * Nixon Schwartz LICSW - 05/01/2011 1309 EST [facility] Electroconvulsive Therapy Service Cognition & Depression Rating [...] Open Art group and worked on coloring Akatsukis. He chatted with another patient about their [...] he wonders if he should be ain correction, but knows he is too young. He [...] Social History Update: Pt will move into [facility] that is located near his [...] 10 mg Oral QHS ??? influenza vaccine [id number] (PF) (FLUZONE) 45 mcg (15 mcg x [...] Fingerstick 206 (*) 70 - 100 (mg/dl) Pumper Gauger ID [id number] GLUCOSE, GLUCOMETER Collection Time 04/30/11 0832 Component Value Range Glucose, Fingerstick 105 (*) 70 - 100 (mg/dl) Pumper Gauger ID [id number] GLUCOSE, GLUCOMETER Collection Time 04/30/11 1222 Component Value Range Glucose, Fingerstick 169 (*) 70 - 100 (mg/dl) Pumper Gauger ID [id number] GLUCOSE, GLUCOMETER Collection Time 04/30/11 1655 Component Value Range Glucose, Fingerstick 155 (*) 70 - 100 (mg/dl) Pumper Gauger ID [id number] Assessment/Formulation: Mr. Santiago is a 60-year-old man [...] his move into his new apt. Diagnosis: Marietta I: Major depression, recurrent, with psychotic features. Marietta II: Deferred Marietta III: HTN, CAD s/p PCI with stent, [...] the resident's note. MARY JAUREGUI MD Pager [phone] Attending, Inpatient Psychiatry, [facility] * Stacy Holder - 04/29/2011 1820 EST Grief and Anger Group: S/O: Pt [...] Denies SI now. Insight and judgment fair. [place] [address] Ward BP 101/63 Pulse [...] and discharge planning. MARY JAUREGUI MD Pager [phone] Attending, Inpatient Psychiatry, [facility] . * Fantasma Barrera - 04/28/20112049 EST S/O Pt. attended Leisure activity group [...] groups * Mary Jauregui MD - 04/28/2011 1724 EST Inpatient Psychiatry Daily Progress Note 04/28/2011 [...] 10 mg Oral QHS ??? influenza vaccine [id number] (PF) (FLUZONE) 45 mcg (15 mcg x [...] 24 hour(s)) GLUCOSE, GLUCOMETER Collection Time 04/27/11 2052 Component Value Range Glucose, Fingerstick 256 (*) 70 - 100 (mg/dl) Pumper Gauger ID [id number] GLUCOSE, GLUCOMETER Collection Time 04/28/11 0745 Component Value Range Glucose, Fingerstick 110 (*) 70 - 100 (mg/dl) Pumper Gauger ID [id number] GLUCOSE, GLUCOMETER Collection Time 04/28/11 1221 Component Value Range Glucose, Fingerstick 250 (*) 70 - 100 (mg/dl) Pumper Gauger ID [id number] GLUCOSE, GLUCOMETER Collection Time 04/28/11 1705 Component Value Range Glucose, Fingerstick 143 (*) 70 - 100 (mg/dl) Pumper Gauger ID [id number] Assessment/Formulation: Mr. Santiago is a 60-year-old man [...] to d/c tomorrow. Sylvia spoke with ECT as400 consultant Jese who suggested waiting until MADRAS score comes up a bit more. Family meeting tomorrow. Resolution of living situation will make big impact. Good pass over weekend, though he was anxious about it initially. Discussed risk and benefits of increasing Nortriptyline. Will conitnue current dose at this time to minimize risk and side effects. Diagnosis: Marietta I: Major depression, recurrent, with psychotic features. Marietta II: Deferred Marietta III: HTN, CAD s/p PCI with stent, [...] the resident's note. MARY JAUREGUI MD Pager [phone] Attending, Inpatient Psychiatry, [facility] * Barbie Jama RN - 04/28/2011 0936 EST 0926 Admit to PACU, anesthesia in attendance, side [...] 10 mg Oral QHS ??? influenza vaccine [id number] (PF) (FLUZONE) 45 mcg (15 mcg x [...] 10 mg Oral QHS ??? influenza vaccine [id number] (PF) (FLUZONE) 45 mcg (15 mcg x [...] and reflections on the readings that the early education teacher presented. A: Engaged, open, introspective P: To [...] 10 mg Oral QHS ??? influenza vaccine [id number] (PF) (FLUZONE) 45 mcg (15 mcg x [...] abnormalities. Speech: essentially normal RRV. Mood: OK 7/10 (10 best). Affect: restricted with brief moments [...] 24 hour(s)) GLUCOSE, GLUCOMETER Collection Time 04/24/11 5975 Component Value Range Glucose, Fingerstick 189 (*) 70 - 100 (mg/dl) Pumper Gauger ID [id number] GLUCOSE, GLUCOMETER Collection Time 04/24/11 2052 Component Value Range Glucose, Fingerstick 283 (*) 70 - 100 (mg/dl) Pumper Gauger ID [id number] GLUCOSE, GLUCOMETER Collection Time 04/25/11 0819 Component Value Range Glucose, Fingerstick 96 70 - 100 (mg/dl) Pumper Gauger ID [id number] GLUCOSE, GLUCOMETER Collection Time 04/25/11 1322 Component Value Range Glucose, Fingerstick 136 (*) 70 - 100 (mg/dl) Pumper Gauger ID [id number] Assessment/Formulation: Mr. Santiago is a 60-year-old man who has had recurrent depressive episodes (at least 2 hospitalizations) and recent Ambien OD since his second in 2009. ECT #9 today.Mood is reported a 10/27-- pt tends to feel worse physically after [...] weather worsens (he is relatively new to [place]). Diagnosis: Marietta I: Major depression, recurrent, with psychotic features. Marietta II: Deferred Marietta III: HTN, CAD s/p PCI with stent, [...] 25 minutes KARINA LUU MD Attending Psychiatrist [facility] Pager [phone] * Chen Vázquez RN - 04/25/2011 0936 [...] is looking into additional housing options in [facility] where she lives. Although he desires to be closer to his daughter, he still worries about paying for an apt and about dealing with the weather in [place]. He notes he has an appointment with a counselor in [facility], Dewayne James, later this month. Social History Update: See update above. Also, he notes he grew up on [facility] andspent time moving because of his job: living in [place], [facility], and [place]. Current Facility-Administered Medications Medication Route Frequency ??? [...] 10 mg Oral QHS ??? influenza vaccine [id number] (PF) (FLUZONE) 45 mcg (15 mcg x [...] past 24 hour(s)) GLUCOSE, GLUCOMETER Collection Time 04/23/112053 Component Value Range Glucose, Fingerstick 248 (*) 70 - 100 (mg/dl) Pumper Gauger ID [id number] GLUCOSE, GLUCOMETER Collection Time 04/24/11 0813 Component Value Range Glucose, Fingerstick 126 (*) 70 - 100 (mg/dl) Pumper Gauger ID [id number] GLUCOSE, GLUCOMETER Collection Time 04/24/11 1152 Component Value Range Glucose, Fingerstick 100 70 - 100 (mg/dl) Pumper Gauger ID [id number] GLUCOSE, GLUCOMETER Collection Time 04/24/11 1717 Component Value Range Glucose, Fingerstick 189 (*) 70 - 100 (mg/dl) Pumper Gauger ID [id number] Assessment/Formulation: Mr. Santiago is a 60-year-old man [...] it will be stopped before discharge). Diagnosis: Marietta I: Major depression, recurrent, with psychotic features. Marietta II: Deferred Marietta III: HTN, CAD s/p PCI with stent, [...] 25 minutes KARINA LUU MD Attending Psychiatrist [facility] [id number] * Nixon Schwartz, [facility] - 04/24/2011 3755 EST [facility] Electroconvulsive Therapy Service Cognition & Depression Rating [...] Patient talks positively about working with his social media sr strategy manager to craft discharge plans. Patient is also [...] appointment scheduled with therapist Dewayne James at [facility] in [facility] on May 20 at 11am. Cosigned by Katarzyna Rincon CSW at 04/24/2011 15:22 EST * Pastora Humphreys - 04/24/2011 1258 EST [...] twice before sought counseling support: once in [place] soon after his 's and this past summer in [place] (Dr. Ayala), a psychiatrist he was referred [...] to his day. Apparently, when living in [place], he played a large role in the [...] damn to them. The stepdaughter hired a sheet metal assembler and riveter, as did the patient, and she was awarded 1/2 of the proceeds from the house. He does not want to reconcile with his stepdaughter, but he does hope for reconciliation with his grandchildren (18 and 21) as well as to be more actively involved in the lives of his biological grandchildren in [facility]. His mind often turned to his regrets about the past during the conversation, however, he was able to refocus and to see the opportunities of the present when redirected. The patient was able to smileand respond a bit to humor. He related a story about his step-granddaughters putting his hair in curlers. Cosigned by Katarzyna Rincon CSW at 04/24/2011 15:57 EST * Karina Luu MD - 04/23/2011 1709 [...] 10 mg Oral QHS ??? influenza vaccine [id number] (PF) (FLUZONE) 45 mcg (15 mcg x [...] past 24 hour(s)) GLUCOSE, GLUCOMETER Collection Time 04/22/11 205 Component Value Range Glucose, Fingerstick 238 (*) 70 - 100 (mg/dl) Pumper Gauger ID [id number] GLUCOSE, GLUCOMETER Collection Time 04/23/11 0819 Component Value Range Glucose, Fingerstick 132 (*) 70 - 100 (mg/dl) Pumper Gauger ID [id number] GLUCOSE, GLUCOMETER Collection Time 04/23/11 0926 Component Value Range Glucose, Fingerstick 161 (*) 70 - 100 (mg/dl) Pumper Gauger ID [id number] GLUCOSE, GLUCOMETER Collection Time 04/23/11 1208 Component Value Range Glucose, Fingerstick 230 (*) 70 - 100 (mg/dl) Pumper Gauger ID [id number] Assessment/Formulation: Mr. Santiago is a 60-year-old man [...] anger/anxiety about the missed ECT session. Diagnosis: Marietta I: Major depression, recurrent, with psychotic features. Marietta II: Deferred Marietta III: HTN, CAD s/p PCI with stent, [...] 25 minutes KARINA LUU MD Attending Psychiatrist [facility] Pager [phone] * OlegarioTramaine wade (At) - 04/23/2011 0516 EST Cognitive group: S/O: Patient participated in the discussion of cognitive distortions. Pt related to should statements, offering the example, I should have saved more for snf. When asked how he might word this [...] and increase coping skills. * Katarzyna Rincon [facility] - 04/23/2011 0903 EST Social Work Progress Note Intervention/Service: Discharge planning Spoke with Mr. Santiago's daughter, Nkechi Weber ([phone]) who is concerned about her father'sslow progress. [...] him to return to his apartment in [place] - too isolated, and far from her, and he has no supports there. She wants him to move into [facility] and she is looking for [...] mental health follow-up, and agreed a referral [facility] in [place] makes sense. * Karina Luu MD - 04/22/2011 5924 EST Inpatient Psychiatry Daily Progress Note 04/22/2011 [...] his daughter in his current apt (in [place]) and would like to be closer to her ([facility]). Mood reported as OK. No [...] 10 mg Oral QHS ??? influenza vaccine [id number] (PF) (FLUZONE) 45 mcg (15 mcg x [...] Fingerstick 256 (*) 70 - 100 (mg/dl) Pumper Gauger ID [id number] GLUCOSE, GLUCOMETER Collection Time 04/22/11 0802 Component Value Range Glucose, Fingerstick 138 (*) 70 - 100 (mg/dl) Pumper Gauger ID [id number] GLUCOSE, GLUCOMETER Collection Time 04/22/11 1148 Component Value Range Glucose, Fingerstick 158 (*) 70 - 100 (mg/dl) Pumper Gauger ID [id number] GLUCOSE, GLUCOMETER Collection Time 04/22/11 1657 Component Value Range Glucose, Fingerstick 180 (*) 70 - 100 (mg/dl) Pumper Gauger ID [id number] Assessment/Formulation: Mr. Santiago is a 60-year-old man [...] plan to discontinue them before D/C. Diagnosis: Marietta I: Major depression, recurrent, with psychotic features. Marietta II: Deferred Marietta III: HTN, CAD s/p PCI with stent, [...] time: 35 minutes NB: New patient to pr - Covering for Dr Jauregui. Chart reviewed. Treatment plan updated. KARINA LUU MD Attending Psychiatrist [facility] Pager [phone] * Tamika Cordero - 04/22/2011 3789 EST Active Multi-Disciplinary problems: ALTERED THOUGHT PROCESSES [030340] (03/22/11) ALTERATION IN SLEEP [952444] (03/23/11) KNOWLEDGE DEFICIT [647139] (04/07/11) NUTRITION [550586] (04/07/11) RISK FOR INFECTION [141361] (04/07/11) GLYCEMIA IMBALANCE [971709] (04/07/11) ANXIETY [194410] (04/09/11) Ineffective Coping [954845] (04/09/11) SELF CARE DEFICIT [070837] (04/09/11) ALTERATION IN MOOD [027819] (04/09/11) Patient Active Problem List Diagnoses ??? [...] Tamika Cordero RN 04/22/2011 15:48 * Benito Mejia, CARLOS - 04/22/2011 1116 EST Nutrition consult for [...] and follow up [address]ENITO MEJIA [address] Pager [phone] * Lele Lee MD - 04/21/2011 4754 EST 04/21/2011 ATTENDING MOTOR VEHICLE EMISSIONS INSPECTOR NOTE REASON FOR HOSPITALIZATION: depression HOSPITAL DAY: [...] ECT tomorrow. Lele Lee MD Attending Psychiatrist head refrigeration engineer Pager [phone] * Kailee Nobles RN - 04/20/2011 2304 EST 2304: Shahnaz in good spirits this elaina. Out in DR/ TV room entire shift. Watched the evening movie, watched a football game and ate dinner with peers. C/O mild anxiety which he received his prn ativanfor, with relief. Also requested A nicotrol cartridge x2. C/o 7/10 right shoulder pain which he received 1 percocet. * Lele Lee MD - 04/20/2011 1509 EST 04/20/2011 ATTENDING MOTOR VEHICLE EMISSIONS INSPECTOR NOTE REASON FOR HOSPITALIZATION: depression HOSPITAL DAY: [...] continue ECT Lele Lee MD Attending Psychiatrist head refrigeration engineer Pager [phone] * Lele Lee MD - 04/19/2011 1204 EST 04/19/2011 ATTENDING MOTOR VEHICLE EMISSIONS INSPECTOR NOTE REASON FOR HOSPITALIZATION: depression HOSPITAL DAY: [...] continue ECT Lele Lee MD Attending Psychiatrist head refrigeration engineer Pager [phone] * Mary Jauregui MD - 04/18/20111957 EST [...] 10 mg Oral QHS ??? influenza vaccine [id number] (PF) (FLUZONE) 45 mcg (15 mcg x [...] Fingerstick 214 (*) 70 - 100 (mg/dl) Pumper Gauger ID [id number] GLUCOSE, GLUCOMETER Collection Time 04/18/11 0801 Component Value Range Glucose, Fingerstick 132 (*) 70 - 100 (mg/dl) Pumper Gauger ID [id number] GLUCOSE, GLUCOMETER Collection Time 04/18/11 1334 Component Value Range Glucose, Fingerstick 88 70 - 100 (mg/dl) Pumper Gauger ID [id number] GLUCOSE, GLUCOMETER Collection Time 04/18/11 1651 Component Value Range Glucose, Fingerstick 191 (*) 70 - 100 (mg/dl) Pumper Gauger ID [id number] Assessment/Formulation: Mr. Santiago is a 60-year-old man [...] restricted (and dysphoric) in affect. Although Mr. Santiago has not been full agreement with tapering lorazepam and Percocet, he ultimately agreed to reducing lorazepam to 0.5 mg bid prn (he noted he hadn't used any yet today). He also agreed to reducing Percocet to once daily prn. Diagnosis: Marietta I: Major depression, recurrent, with psychotic features. Marietta II: Deferred Marietta III: HTN, CAD s/p PCI with stent, [...] the resident's note. MARY JAUREGUI MD Pager [phone] Attending, Inpatient Psychiatry, [facility] * Benito Lainez RN - 04/18/2011 0197 EST 843 - pt arrived pacu asleep - does not verbalize pain - no resp distress noted 915 - pt arousing, memo soda, denies pain - 925 Report called to [facility] 3RN; waitiing for hortensia [place] sign out 930 - pt ready for transfer to sb 3 * Yenny Brumfield - 04/17/2011 194 EST Games Group: S/O: Pt came to group approx midway after finishing his supper. He did not want to join in game of Venaxiso, instead he preferred to work on his word search but he sat at the table with usand socialized as he worked on his puzzle, making jokes and laughing. A: Pt engaged with pleasant and zheng affect. Pt improving. P: To continue to participate in groups. * Nixon Schwartz LICSW - 04/17/2011 1556 EST [facility] Electroconvulsive Therapy Service Cognition & Depression Rating [...] 15:56 * Mary Jauregui MD - 04/17/2011 0964 EST Inpatient Psychiatry Daily Progress Note 04/17/2011 [...] with reality, which he experienced when at [facility] and which he attributes to perphenazine). He [...] to see his daughter (who lives in [facility]) again while he is in [...] 10 mg Oral QHS ??? influenza vaccine [id number] (PF) (FLUZONE) 45 mcg (15 mcg x [...] Fingerstick 240 (*) 70 - 100 (mg/dl) Pumper Gauger ID [id number] GLUCOSE, GLUCOMETER Collection Time 04/16/11 1732 Component Value Range Glucose, Fingerstick 184 (*) 70 - 100 (mg/dl) Pumper Gauger ID [id number] GLUCOSE, GLUCOMETER Collection Time 04/16/11 2039 Component Value Range Glucose, Fingerstick 257 (*) 70 - 100 (mg/dl) Pumper Gauger ID [id number] GLUCOSE, GLUCOMETER Collection Time 04/17/11 0819 Component Value Range Glucose, Fingerstick 214 (*) 70 - 100 (mg/dl) Pumper Gauger ID [id number] Assessment/Formulation: Mr. Santiago is a 60-year-old man [...] ECT with no other med changes. Diagnosis: Marietta I: Major depression, recurrent, with psychotic features. Marietta II: Deferred Marietta III: HTN, CAD s/p PCI with stent, [...] the resident's note. 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 Current Facility-Administered Medications Medication Route [...] Oral AT BEDTIME PRN ??? influenza vaccine [id number] (PF) (FLUZONE) 45 mcg (15 mcg x [...] Fingerstick 169 (*) 70 - 100 (mg/dl) Pumper Gauger ID [id number] GLUCOSE, GLUCOMETER Collection Time 04/15/11 1652 Component Value Range Glucose, Fingerstick 235 (*) 70 - 100 (mg/dl) Pumper Gauger ID [id number] GLUCOSE, GLUCOMETER Collection Time 04/15/11 2117 Component Value Range Glucose, Fingerstick 149 (*) 70 - 100 (mg/dl) Pumper Gauger ID [id number] GLUCOSE, GLUCOMETER Collection Time 04/16/11 0805 Component Value Range Glucose, Fingerstick 147 (*) 70 - 100 (mg/dl) Pumper Gauger ID [id number] Assessment/Formulation: Mr. Santiago is a 60-year-old man [...] he had been on when hospitalized at [facility] in Feb 2011. Goals will be to continue ECT and try to taper lorazepam and oxycodone. Diagnosis: Marietta I: Major depression, recurrent, with psychotic features. Marietta II: Deferred Marietta III: HTN, CAD s/p PCI with stent, [...] the resident's note. MARY JAUREGUI MD Pager [phone] Attending, Inpatient Psychiatry, [facility] * Mary Jauregui MD - 04/15/2011 6220 EST 04/15/2011 ATTENDING MOTOR VEHICLE EMISSIONS INSPECTOR NOTE REASON FOR HOSPITALIZATION: depression HOSPITAL DAY: LOS: 24 days INTERIM HISTORY: Events of past 24h reviewed with nursing staff. Lying on bed. Good pass with daughter to [employer]. Enjoyed his meal. Slept about 4 h. Up early, worked on word search, then back to nap. Anticipating ECT in AM. EXAM: In usual clothes. Calm, less negative today. Fair eye contact. Speech fluent. Mood barkeep. Thought logical. Denies SI. Insight and judgment [...] Pharmacy. Ordered. PLAN: As per treatment team. Mary Jauregui MD Attending Psychiatrist head refrigeration engineer Pager [phone] * Mary Jauregui MD - 04/14/2011 1650 EST 04/14/2011 ATTENDING MOTOR VEHICLE EMISSIONS INSPECTOR NOTE REASON FOR HOSPITALIZATION: depression HOSPITAL DAY: [...] milieu. Next treatment Wed. Pass with daughter tonabner. PLAN: As per treatment team. Mary Jauregui MD Attending Psychiatrist head refrigeration engineer Pager [phone] * Katarzyna Rincon CSW - 04/14/2011 1509 [...] Oral AT BEDTIME PRN ??? influenza vaccine [id number] (PF) (FLUZONE) 45 mcg (15 mcg x [...] Oral AT BEDTIME PRN ??? influenza vaccine [id number] (PF) (FLUZONE) 45 mcg (15 mcg x [...] of ECT related orders. Next treatment on Thu-. 3. No changes to level of restriction, locus of risk, or legal status. 4. Pass scheduled for Thursday. Vinicio Vora MD 04/12/2011 14:41 * Tamika Cordero - 04/11/2011 3496 EST Active Multi-Disciplinary problems: ALTERED THOUGHT PROCESSES [186622] (03/22/11) ALTERATION IN SLEEP [337133] (03/23/11) KNOWLEDGE DEFICIT [167162] (04/07/11) NUTRITION [784448] (04/07/11) RISK FOR INFECTION [392800] (04/07/11) GLYCEMIA IMBALANCE [509771] (04/07/11) ANXIETY [583440] (04/09/11) Ineffective Coping [776164] (04/09/11) SELF CARE DEFICIT [938632] (04/09/11) ALTERATION IN MOOD [361747] (04/09/11) Patient Active Problem List Diagnoses ??? [...] Oral AT BEDTIME PRN ??? influenza vaccine [id number] (PF) (FLUZONE) 45 mcg (15 mcg x [...] Fingerstick 226 (*) 70 - 100 (mg/dl) Pumper Gauger ID [id number] GLUCOSE, GLUCOMETER Collection Time 04/10/11 2109 Component Value Range Glucose, Fingerstick 280 (*) 70 - 100 (mg/dl) Pumper Gauger ID [id number] GLUCOSE, GLUCOMETER Collection Time 04/11/11 0758 Component Value Range Glucose, Fingerstick 106 (*) 70 - 100 (mg/dl) Pumper Gauger ID [id number] Assessment/Formulation: Mr. Santiago is a 60-year-old man who has had recurrent episodes (at least 2hospitalizations) since his second in 2009 (note: diagnosis was changed to recurrent MDD below). Pt has had some response to ECT but he has not consistently improved thus far. He missed ECTtreatment #6 today, because he ate after midnight despite knowing the order. ECT will resume on 03/21 8. He has shown no evidence of psychosis since stopping perphenazine, which he had been on when hospitalized at [facility] in Feb 2011. However, his thoughts remain quite negative at this time. Willcontinue with nortriptyline and ECT. Diagnosis: Marietta I: Major depression, recurrent, with psychotic features. Marietta II: Deferred Marietta III: HTN, CAD s/p PCI with stent, [...] the resident's note. MARY JAUREGUI MD Pager [phone] Attending, Inpatient Psychiatry, [facility] * Kim Davis - 04/10/2011 1800 [...] in August of 2009, seen on his nineteenth day after admission following a serious intentional [...] Oral AT BEDTIME PRN ??? influenza vaccine [id number] (PF) (FLUZONE) 45 mcg (15 mcg x [...] Fingerstick 221 (*) 70 - 100 (mg/dl) Pumper Gauger ID [id number] GLUCOSE, GLUCOMETER Collection Time 04/09/11 1211 Component Value Range Glucose, Fingerstick 218 (*) 70 - 100 (mg/dl) Pumper Gauger ID [id number] GLUCOSE, GLUCOMETER Collection Time 04/09/11 1729 Component Value Range Glucose, Fingerstick 168 (*) 70 - 100 (mg/dl) Pumper Gauger ID [id number] GLUCOSE, GLUCOMETER Collection Time 04/09/11 2120 Component Value Range Glucose, Fingerstick 295 (*) 70 - 100 (mg/dl) Pumper Gauger ID [id number] GLUCOSE, GLUCOMETER Collection Time 04/10/11 9934 Component Value Range Glucose, Fingerstick 221 (*) 70 - 100 (mg/dl) Pumper Gauger ID [id number] Other studies:N/A Assessment/Formulation: Mr. Shahnaz Santiago is a 60-year-old male with a past psychiatric history of major depression with onset following the of his in August of 2009, admitted after a serious intentional overdose. The patient was discharged from the [facility] on 03/19/11 after a two week stay for Depressive symptoms. The patient is currently midcycle through his first course of ECT. The patient endorses significant improvement in mood symptoms. Affect is more animated. Patient is engaging in futuristic thinking. Patient plans to continue with tri-weekly ECT treatments. No changes today. Diagnosis: Marietta I: Major Depression, single episode, with psychotic features. Marietta II: Deferred. Marietta III: HTN, CAD s/p PCI with stent, [...] the resident's note. MARY JAUREGUI MD Pager [phone] Attending, Inpatient Psychiatry, [facility] * Mary Jauregui MD - 04/09/2011 [...] Overnight nursing reports the patient attended the [employer] group where he was observed to be [...] Oral AT BEDTIME PRN ??? influenza vaccine [id number] (PF) (FLUZONE) 45 mcg (15 mcg x [...] Fingerstick 254 (*) 70 - 100 (mg/dl) Pumper Gauger ID [id number] GLUCOSE, GLUCOMETER Collection Time 04/08/11 1722 Component Value Range Glucose, Fingerstick 163 (*) 70 - 100 (mg/dl) Pumper Gauger ID [id number] GLUCOSE, GLUCOMETER Collection Time 04/08/11 2104 Component Value Range Glucose, Fingerstick 228 (*) 70 - 100 (mg/dl) Pumper Gauger ID [id number] GLUCOSE, GLUCOMETER Collection Time 04/09/11 0759 Component Value Range Glucose, Fingerstick 177 (*) 70 - 100 (mg/dl) Pumper Gauger ID [id number] Other studies:N/A Assessment/Formulation: Mr. Shahnaz Santiago is a 60-year-old male with a past psychiatric history of major depression with onset following the of his in August of 2009, admitted after a serious intentional overdose. The patient was discharged from the [facility] on 03/19/11 after a two week stay for Depressive symptoms. The patient is currently midcycle through his first course of ECT. The patient isimproved from the time of admission. Depressed mood persists, but thoughts of are fewer. Affect is improved from admission. Trough Nortriptyline level is 87, which is within the therapeutic concentration. Patient plans to continue with tri-weekly ECT treatments. Diagnosis: Marietta I: Major Depression, single episode, with psychotic features. Marietta II: Deferred Marietta III: HTN, CAD s/p PCI with stent, [...] the resident's note. MARY JAUREGUI MD Pager [phone] Attending, Inpatient Psychiatry, [facility] * Fantasma Barrera. - 04/08/2011 1929 EST S/O Pt. attended [employer] group [...] Continues much more agreeable today. Social, cooperative. barkeep moo, slept 4.5 h, adding Ambien works. [...] glad for the benefit. Family will visit tonight and will be good to get their [...] mgmt, weekend plan. MARY JAUREGUI MD Pager [phone] Attending, Inpatient Psychiatry, [facility] . * Nixon Schwartz, [facility] - 04/08/2011 1424 EST [facility] Electroconvulsive Therapy Service Cognition & Depression Rating [...] EST S/O:Pt attended Leisure group, utilizing the [employer] for leisure, recreation and relaxation. PT was [...] attend groups. * Mary Jauregui MD - 04/07/20111811 EST 04/07/2011 ATTENDING NOTE PROBLEM (ID and [...] LAB: Nortriptyline 87 on 100 mg ASSESSMENT: MDE, severe.ECT #4. Improvement. Will continue Percocet for [...] of treatment plan. MARY JAUREGUI MD Pager [phone] Attending, Inpatient Psychiatry, [facility] . * Stacy Holder - 04/07/2011 1633 EST Grief and Anger Group: S/O: Pt participated in the discussion of losses and spoke about the of his , his resignation from his job, and his move to [place]. Pt able to identify that watching his grandkids and being a part of their lives is a positive that has occurred from the losses and changes. A: inc in participation, engaged, increasing coping skills, identifying losses. P: To continue to participate in group and increase coping skills. * Olegario (At), Tramaine - 04/06/2011 1229 EST Morning Check-In: S/O: [...] * Lele Daley MD PhD - 04/06/2011 8866 EST 04/06/2011 ATTENDING MOTOR VEHICLE EMISSIONS INSPECTOR NOTE PROBLEM (ID and CC): depression HOSPITAL [...] % 3 mL Intravenous Q8H influenza vaccine [id number] (PF) 0.5 mL Intramuscular ONCE nortriptyline 100 [...] his shoulder. Lele Daley MD,PHD Attending Psychiatrist head refrigeration engineer Pager [phone] * Lele Daley MD PhD - 04/05/2011 0634 EST 04/05/2011 ATTENDING MOTOR VEHICLE EMISSIONS INSPECTOR NOTE PROBLEM (ID and CC): depression HOSPITAL [...] % 3 mL Intravenous Q8H influenza vaccine [id number] (PF) 0.5 mL Intramuscular ONCE nortriptyline 100 [...] his shoulder. Lele Daley MD,PHD Attending Psychiatrist head refrigeration engineer Pager [phone] * hernesto Nixon, [facility] - 04/04/2011 1444 EST [facility] Electroconvulsive Therapy Service Cognition & Depression Rating [...] 14:44 * Mary Jauregui MD - 04/04/2011 1224 EST 04/04/2011 ATTENDING NOTE PROBLEM (ID and [...] in last elaina. EXAM: Dressed in tshirt Magalia and akila pants. Sitting on bed, head [...] oz) BMI 29.08 kg/m2 SpO2 97% ASSESSMENT: ADRIANA, evelyn.ECT #3. continues to ruminate, be angry and [...] of treatment planning. MARY JAUREGUI MD Pager [phone] Attending, Inpatient Psychiatry, [facility] . * Benito Lainez RN - 04/04/2011 0943 EST 935 - pt arrived pacu drowsy, arouses to follow commands, denies pain. 1000 - pt awake, memo po, c/o neck ache - medicated w IBU - report called to Rema Ricardo RN - ready for dc to floor * Yenny Brumfield - 04/03/2011 194 EST Games Group: S/O: Pt initially declined [...] more pleasant with night RN and in receiver dispatcher shift. Irritable other parts of day, jimmy [...] BMI 29.08 kg/m2 SpO2 98% ASSESSMENT: MDE, severe.Subtle changes seen by family, staff. He [...] of treatment planning. MARY JAUREGUI MD Pager [phone] Attending, Inpatient Psychiatry, [facility] . * Stacy Holder Elvis - 04/03/2011 1503 EST Writing for Health Group: S/O: Pt was sitting in the Group/ TV room finishing his lunch when the group started. Pt spoke about being unprepared for winter here in [place] and that he didn't have any warm clothes. He also spoke about having his third ECT tomorrow. A female peer (JM) spoke about having ECT and was supportive of his having the treatments. Pato asked,What will they do if the treatments don't help. Pt was encouraged to speak to his doctor about this concern. Pt left the group after writing his goals for theday, week and for fci and did not return to the group. [...] CARE NOTE Re: Shahnaz Santiago Patient is Spiritism and has been Anointed with the Sacrament of the Sick. Date 04/02/2011 Page or Referral ? - Referral Time of Page/Call - 1015 Location - Sp3 Sacraments given: - Follow up necessary - Yes Comfort Care / End of Life - No Note: Shahnaz requested a early education teacher visit. When I arrived he was feeling ill and did not want to see anyone. He was told that this early education teacher will return tomorrow. Signed Warren Pittslivan Spiritism Lead Tinner Pager [phone] * Mary Jauregui MD - 04/02/2011 0854 [...] 3 mL Intravenous Q8H ??? influenza vaccine [id number] (PF) (FLUZONE) 45 mcg (15 mcg x [...] Fingerstick 187 (*) 70 - 100 (mg/dl) Pumper Gauger ID [id number] GLUCOSE, GLUCOMETER Collection Time 04/01/11 1703 Component Value Range Glucose, Fingerstick 200 (*) 70 - 100 (mg/dl) Pumper Gauger ID [id number] GLUCOSE, GLUCOMETER Collection Time 04/01/11 2119 Component Value Range Glucose, Fingerstick 264 (*) 70 - 100 (mg/dl) Pumper Gauger ID [id number] GLUCOSE, GLUCOMETER Collection Time 04/02/11 0803 Component Value Range Glucose, Fingerstick 130 (*) 70 - 100 (mg/dl) Pumper Gauger ID [id number] Other studies:N/A Serum Nortriptyline level still pending. Assessment/Formulation: Mr. Shahnaz Santiago is a 60-year-old male with a past psychiatric history of major depression with onset following the of his in August of 2009, admitted after a serious intentional overdose. The patient was discharged from the [facility] on 03/19/11 after a two week stay for Depressive symptoms. The patient underwent his first course of ECT last and was found to be improved. The patient underwent ECT today. Depressed mood and thoughts of persist, but affect is slightly improved from admission. Trough Nortriptyline level is still pending. Patient plans to continue with tri- weekly ECT treatments. Diagnosis: Marietta I: Major Depression, single episode, with psychotic features. Marietta II: Deferred Marietta III: HTN, CAD s/p PCI with stent, [...] the resident's note. MARY JAUREGUI MD Pager [phone] Attending, Inpatient Psychiatry, [facility] * Dewayne De León - 04/01/2011 0776 EST Cognitive Processes S/O: Reluctantly, patient read [...] participation * Mary Jauregui MD - 04/01/2011 2788 EST Inpatient Psychiatry Daily Progress Note 04/01/2011 [...] The patient was recently discharged from the [facility] on 03/19/11 after a two week [...] 3 mL Intravenous Q8H ??? influenza vaccine [id number] (PF) (FLUZONE) 45 mcg (15 mcg x [...] Fingerstick 109 (*) 70 - 100 (mg/dl) Pumper Gauger ID [id number] GLUCOSE, GLUCOMETER Collection Time 03/31/11 2047 Component Value Range Glucose, Fingerstick 334 (*) 70 - 100 (mg/dl) Pumper Gauger ID [id number] GLUCOSE, GLUCOMETER Collection Time 04/01/11 0800 Component Value Range Glucose, Fingerstick 146 (*) 70 - 100 (mg/dl) Pumper Gauger ID [id number] GLUCOSE, GLUCOMETER Collection Time 04/01/11 1154 Component Value Range Glucose, Fingerstick 187 (*) 70 - 100 (mg/dl) Pumper Gauger ID [id number] Other studies:N/A Trough Nortriptyline level is in progress. Assessment/Formulation: Mr. Shahnaz Santiago is a 60-year-old male with a past psychiatric history of major depression with onset following the of his in August of 2009, admitted after a serious intentional overdose. The patient was discharged from the [facility] on 03/19/11 after a two week stay for Depressive symptoms. The patient underwent his first course of ECT last and was found to be improved. The patient plans to resume ECT tomorrow. Depressed mood and thoughts of persist, butaffect is slightly improved from admission. Trough Nortriptyline level is still pending. Diagnosis: Marietta I: Major Depression, single episode, with psychotic features. Marietta II: Deferred Marietta III: HTN, CAD s/p PCI with stent, type II DM, h/o nephrolithiasis, s/p cholecystectomy Plan: 1.) ECT to resume tomorrow, with patient to be back on a Mon, Weds, Thu ECT schedule. 2.) Trough Nortriptyline level [...] the resident's note. MARY JAUREGUI MD Pager [phone] Attending, Inpatient Psychiatry, [facility] * Pastora Humphreys - 03/31/2011 1655 EST Social Work Progress Note Intervention/Service: Coordination of care The patient's daughter received permission from the court for the patient to proceed with ECT treatment. Dr. Jauregui will fax the consent form to the court on the morning of 04/01 as per the insulation worker interior surface's request. The patient may receive ECT late in on Sunday 04/01 but more likely on Thursday. The patient's daughter, Nkechi, was frustrated by miscommunication between the court, nursing and Dr. Jauregui regarding facilitating communication between Dr. Jauregui and the insulation worker interior surface. Spoke to Nkechi, the patient's daughter, and let her know that Dr. Jauregui was able to speak with the insulation worker interior surface before he left and that he was doing his best to get ECT scheduled for her father as soon as possible. Cosigned by Katarzyna Rincon CSW at 04/01/2011 14:39 EST * Dewayne De León - 03/31/2011 1234 [...] The patient was recently discharged from the [facility] on 03/19/11 after a two week [...] 3 mL Intravenous Q8H ??? influenza vaccine [id number] (PF) (FLUZONE) 45 mcg (15 mcg x [...] Fingerstick 257 (*) 70 - 100 (mg/dl) Pumper Gauger ID [id number] GLUCOSE, GLUCOMETER Collection Time 03/30/11 1654 Component Value Range Glucose, Fingerstick 171 (*) 70 - 100 (mg/dl) Pumper Gauger ID [id number] GLUCOSE, GLUCOMETER Collection Time 03/30/11 2058 Component Value Range Glucose, Fingerstick 238 (*) 70 - 100 (mg/dl) Pumper Gauger ID [id number] GLUCOSE, GLUCOMETER Collection Time 03/31/11 0839 Component Value Range Glucose, Fingerstick 128 (*) 70 - 100 (mg/dl) Pumper Gauger ID [id number] Other studies:N/A Assessment/Formulation: Mr. Shahnaz Santiago is a 60-year-old male with a past psychiatric history of major depression with onset following the of his in August of 2009, admitted after a serious intentional overdose. This is the third lifetime hospitalization for Mr. Santiago, who was discharged from the [facility] on 03/19/11 after a two week stay for Depressive symptoms. The patient underwent his first course of ECT last and was found to be improved. Late in the afternoon, the Attending did speak with a Authorization Rep whereby the Legal parameters appear to be resolved. The patient has been without acute events. Depressed mood and thoughts of persist, but affect is slightly improved from admission. The patient is less isolative. No medication changes planned for today. Plan to continue ECT, with next treatment Thursday. Attending Discussed with [facility] [phone] and he amended guardianship order to include ECT. Faxed to unit. ECT team notified. Will put pato on schedule for Thursday. Diagnosis: Marietta I: Major Depression, single episode, with psychotic features. Marietta II: Deferred Marietta III: HTN, CAD s/p PCI with stent, [...] will continue. Next treatment will take place Thursday. 6.) The patient currently has Ativan scheduled at [facility], and Ambien is available PRN. Today this [...] the resident's note. MARY JAUREGUI MD Pager [phone] Attending, Inpatient Psychiatry, [facility] * Karina Luu MD - 03/30/2011 1141 EST 03/30/2011 ATTENDING MOTOR VEHICLE EMISSIONS INSPECTOR NOTE REASON FOR HOSPITALIZATION: Depression HOSPITAL DAY: [...] treatment team. KARINA LUU MD Attending Psychiatrist head refrigeration engineer Pager [phone] * Karina Luu MD - 03/29/2011 0816 EST 03/29/2011 ATTENDING MOTOR VEHICLE EMISSIONS INSPECTOR NOTE REASON FOR HOSPITALIZATION: Depression HOSPITAL DAY: [...] treatment team. KARINA LUU MD Attending Psychiatrist head refrigeration engineer Pager [phone] * Yenny Brumfield - 03/28/2011 1531 EST [...] in groups. * Katarzyna Rincon CSW - 03/28/2011 1141 EST Social Work Progress [...] done. * Mary Jauregui MD - 03/28/2011 0921 EST Inpatient Psychiatry Daily Progress Note 03/28/2011 [...] The patient was recently discharged from the [facility] on 03/19/11 after a two week [...] 3 mL Intravenous Q8H ??? influenza vaccine [id number] (PF) (FLUZONE) 45 mcg (15 mcg x [...] Fingerstick 227 (*) 70 - 100 (mg/dl) Pumper Gauger ID [id number] GLUCOSE, GLUCOMETER Collection Time 03/27/11 1446 Component Value Range Glucose, Fingerstick 224 (*) 70 - 100 (mg/dl) Pumper Gauger ID [id number] GLUCOSE, GLUCOMETER Collection Time 03/27/11 1711 Component Value Range Glucose, Fingerstick 200 (*) 70 - 100 (mg/dl) Pumper Gauger ID [id number] GLUCOSE, GLUCOMETER Collection Time 03/27/11 2110 Component Value Range Glucose, Fingerstick 175 (*) 70 - 100 (mg/dl) Pumper Gauger ID [id number] GLUCOSE, GLUCOMETER Collection Time 03/28/11 0815 Component Value Range Glucose, Fingerstick 119 (*) 70 - 100 (mg/dl) Pumper Gauger ID [id number] Other studies:N/A Assessment/Formulation: Mr. Shahnaz Santiago is a 60-year-old male with a past psychiatric history of major depression with onset following the of his in August of 2009, admitted after a serious intentional overdose. This is the third lifetime hospitalization for Mr. Santiago, who was discharged from the [facility] on 03/19/11 after a two week [...] regarding gisell's visit to court. ECT postponed Thu. Diagnosis: Marietta I: Major Depression, single episode, with psychotic features. Marietta II: Deferred Marietta III: HTN, CAD s/p PCI with stent, [...] the resident's note. MARY JAUREGUI MD Pager [phone] Attending, Inpatient Psychiatry, [facility] * Yenny Brumfield - 03/27/2011 194 EST Games Group: S/O: Pt joined in game of Venaxiso. He had not played before, although he [...] The patient was recently discharged from the [facility] on 03/19/11 after a two week [...] 3 mL Intravenous Q8H ??? influenza vaccine [id number] (PF) (FLUZONE) 45 mcg (15 mcg x [...] Fingerstick 186 (*) 70 - 100 (mg/dl) Pumper Gauger ID [id number] GLUCOSE, GLUCOMETER Collection Time 03/26/11 1717 Component Value Range Glucose, Fingerstick 160 (*) 70 - 100 (mg/dl) Pumper Gauger ID [id number] GLUCOSE, GLUCOMETER Collection Time 03/26/11 2101 Component Value Range Glucose, Fingerstick 259 (*) 70 - 100 (mg/dl) Pumper Gauger ID [id number] GLUCOSE, GLUCOMETER Collection Time 03/27/11 0141 Component Value Range Glucose, Fingerstick 194 (*) 70 - 100 (mg/dl) Pumper Gauger ID [id number] GLUCOSE, GLUCOMETER Collection Time 03/27/11 0804 Component Value Range Glucose, Fingerstick 162 (*) 70 - 100 (mg/dl) Pumper Gauger ID [id number] GLUCOSE, GLUCOMETER Collection Time 03/27/11 1152 Component Value Range Glucose, Fingerstick 227 (*) 70 - 100 (mg/dl) Pumper Gauger ID [id number] Other studies:N/A Assessment/Formulation: Mr. Shahnaz Santiago is a 60-year-old male with a past psychiatric history of major depression with onset following the of his in August of 2009, admitted after a serious intentional overdose. This is the third lifetime hospitalization for Mr. Santiago, who was discharged from the [facility] on 03/19/11 after a two week [...] increase in his dosage of Perphenazine. Diagnosis: Marietta I: Major Depression, single episode, with psychotic features Marietta II: deferred Marietta III: HTN, CAD s/p PCI with stent, [...] session of ECT. MARY JAUREGUI MD Pager [phone] Attending, Inpatient Psychiatry, [facility] * Danyell Salmeron - 03/27/2011 1117 EST 1117--pt seen by Dr Ever Fofana, states he will write DC eval * Tramaine Melvin (At) - 03/26/2011 1755 EST Games: S/O: Pt [...] continue to participate in groups. * [facility]26[facility]2011 1524 EST [facility] Electroconvulsive Therapy Service Cognition & Depression Rating [...] The patient was recently discharged from the [facility] on 03/19/11 after a two week [...] Medications Medication Route Frequency ??? influenza vaccine [id number] (PF) (FLUZONE) 45 mcg (15 mcg x [...] Fingerstick 240 (*) 70 - 100 (mg/dl) Pumper Gauger ID [id number] GLUCOSE, GLUCOMETER Collection Time 03/25/11 1653 Component Value Range Glucose, Fingerstick 171 (*) 70 - 100 (mg/dl) Pumper Gauger ID [id number] GLUCOSE, GLUCOMETER Collection Time 03/25/11 2052 Component Value Range Glucose, Fingerstick 299 (*) 70 - 100 (mg/dl) Pumper Gauger ID [id number] GLUCOSE, GLUCOMETER Collection Time 03/26/11 0810 Component Value Range Glucose, Fingerstick 121 (*) 70 - 100 (mg/dl) Pumper Gauger ID [id number] Other studies:N/A Assessment/Formulation: Mr. Shahnaz Santiago is a 60-year-old male with a past psychiatric history of major depression with onset following the of his in August of 2009, admitted involuntarily after ingesting #27 10 mg Zolpidem tablets in attempt to suicide. This is the third lifetime hospitalization for Mr. Santiago, who was discharged from the [facility] on 03/19/11 after a two week [...] ECT treatment. No medication changes today. Diagnosis: Marietta I: Major Depression, single episode, with psychotic features Marietta II: deferred Marietta III: HTN, CAD s/p PCI with stent, [...] the resident's note. MARY JAUREGUI MD Pager [phone] Attending, Inpatient Psychiatry, [facility] * Dewayne De León - 03/25/2011 1709 EST WRAP Group: S/O: After introductions the [...] groups. * Mary Jauregui MD - 03/25/2011 1705 EST Inpatient Psychiatry Daily Progress Note 03/25/2011 [...] The patient was recently discharged from the [facility] on 03/19/11 after a two week [...] Medications Medication Route Frequency ??? influenza vaccine [id number] (PF) (FLUZONE) 45 mcg (15 mcg x [...] Fingerstick 237 (*) 70 - 100 (mg/dl) Pumper Gauger ID [id number] GLUCOSE, GLUCOMETER Collection Time 03/25/11 0924 Component Value Range Glucose, Fingerstick 153 (*) 70 - 100 (mg/dl) Pumper Gauger ID [id number] GLUCOSE, GLUCOMETER Collection Time 03/25/11 1157 Component Value Range Glucose, Fingerstick 240 (*) 70 - 100 (mg/dl) Pumper Gauger ID [id number] GLUCOSE, GLUCOMETER Collection Time 03/25/11 1653 Component Value Range Glucose, Fingerstick 171 (*) 70 - 100 (mg/dl) Pumper Gauger ID [id number] Other studies:N/A Assessment/Formulation: Mr. Shahnaz Santiago is a 60-year-old male with a past psychiatric history of major depression with onset following the of his in August of 2009, admitted involuntarily after ingesting #27 10 mg Zolpidem tablets in attempt to suicide. This is the third lifetime hospitalization for Mr. Santiago, who was discharged from the [facility] on 03/19/11 after a two week [...] is very likely appropriate for ECT. Diagnosis: Marietta I: Major Depression, single episode, with psychotic features Marietta II: deferred Marietta III: HTN, CAD s/p PCI with stent, [...] the resident's note. MARY JAUREGUI MD Pager [phone] Attending, Inpatient Psychiatry, [facility] * Katarzyna Rincon [facility] - 03/25/2011 1798 EST Psychosocial Assessment Presenting Problems: 60 year [...] and that he wants to be in [place] to be close to his daughter and grandchildren. He thought about the harm a suicide would do to his family and he said, I don't want to go out like that. Current Living Situation/Housing: Has an apartment in [place], [place]. Family/Support System and Contact Telephone Numbers: Daughter and grandchildren in the area. Daughter -Nkechi Weber [phone]. Family Constellation/Pertinent Family History: Raised in [place]. Father was an alcoholic. Moved in [place] in the 70s and then later moved to [place] with second who Shahnaz describes as sarcastic. Johanna in 2009 of cancer. Mr. Santiago has come to [place] from [place] to be closer to his daughter and her family. Other Social Supports: Very limited in this area. Education/Employment Financial: Technical training Substance Abuse and Treatment History: None currently - stopped many years ago. Mental Health Treatment History: Further assessment needed. Wants a referral to [facility]. Mental Health and Other Providers: Referral to [facility] Legal Issues: None known Spiritual/Taoism/Cultural Considerations: Not known - further assessment needed. [...] for work atthis time. He took a Specialist Managers course, did well, and enjoyed it but [...] Assessment: depressed man who recently moved to [place] to be closer to daughter. Recently lost [...] with discharge planning. * Jw Carrasquillo - 03/24/20112012 EST S/O:Pt attended Leisure group utilizing the [employer] for recreation, relaxation and socialization. Pt appeared [...] groups. * Mary Jauregui MD - 03/24/2011 4380 EST Inpatient Psychiatry Daily Progress Note 03/24/2011 [...] Mr. Santiago, who was discharged from the [facility] on 03/19/11 after a two week [...] acute concerns. Phone conference call with daughter. KNOB LICK discharge was related to plan hehad with daughter to seek help elsewhere. Past Family/Social History Update: The Attending and Social Work did talk with the patient's daughter whereby collateral information was obtained. Current Facility-Administered Medications Medication Route Frequency ??? influenza vaccine [id number] (PF) (FLUZONE) 45 mcg (15 mcg x [...] Fingerstick 170 (*) 70 - 100 (mg/dl) Pumper Gauger ID [id number] GLUCOSE, GLUCOMETER Collection Time 03/24/11 0907 Component Value Range Glucose, Fingerstick 138 (*) 70 - 100 (mg/dl) Pumper Gauger ID [id number] URINALYSIS Collection Time 03/24/11 0922 Component Value Range Color, UA Yellow Clarity, UA Clear Glucose, UA Neg Neg Bilirubin, UA Neg Neg Ketones, UA Neg Neg Specific [place], Urine 1.010 1.001 - 1.035 Blood, UA [...] Fingerstick 236 (*) 70 - 100 (mg/dl) Pumper Gauger ID [id number] GLUCOSE, GLUCOMETER Collection Time 03/24/11 1652 Component Value Range Glucose, Fingerstick 251 (*) 70 - 100 (mg/dl) Pumper Gauger ID [id number] Other studies:N/A Assessment/Formulation: Mr. Shahnaz Santiago is a 60-year-old male with a past psychiatric history of major depression with onset following the of his in August of 2009, admitted involuntarily after ingesting #27 10 mg Zolpidem tablets in attempt to suicide. This is the third lifetime hospitalization for Mr. Santiago, who was discharged from the [facility] on 03/19/11 after a two week stay for Depressive symptoms. He endorses Depressed mood today, but denies suicidal ideation. He is appropriate for conversion to voluntary status. ECT consultation is placed. The Nortriptyline will be increased to 100 mg. will defer Neuro workup/head imaging at this time as the presentation seems c/w MDE. Will reass ess as appropriate. Diagnosis: Marietta I: Major Depression, single episode, with psychotic features Marietta II: deferred Marietta III: HTN, CAD s/p PCI with stent, [...] the resident's note. MARY JAUREGUI MD Pager [phone] Attending, Inpatient Psychiatry, [facility] * Dewayne De León - 03/24/2011 1733 EST Focus Group S/O: The patient attempted [...] groups. * Navid Gutierrez MD - 03/23/2011 1207 EST group president on-call note Date: 03/23/2011 Time: 12:07 BP [...] Stanford, Psychiatry attending MD. Navid Gutierrez MD #[id number] * Olegario (At)Tramaine - 03/23/2011 0841 EST Department of Psychiatry-Inpatient Psychiatry Activities Therapy Assessment Diagnosis: Multiaxial Diagnostic Impression (including Differential Diagnosis) Marietta I: Major Depression, single episode, with psychotic features Marietta II: deferred Marietta III: HTN, CAD s/p PCI with stent, type II DM, h/o nephrolithiasis, s/p cholecystectomy Marietta IV: , unemployed, recently relocated, lives alone Marietta V: 21-30 behavior considerably influenced by delusions [...] 8:43 * Sajan Stanford MD - 03/23/2011 0835 EST ATTENDING MOTOR VEHICLE EMISSIONS INSPECTOR NOTE REASON FOR HOSPITALIZATION: Depression. HOSPITAL DAY: LOS: 1 day INTERIM HISTORY: Trazodone for sleep. Cooperative with care. See admission note for complete history, etc. BP 170/93 Pulse 77 Temp(Src) 35.6 ??C (96.1 ??F) (Tympanic) Ht 185.4 cm (72.99) Wt 101.969kg (224 lb 12.8 oz) BMI 29.67 kg/m2 ASSESSMENT: See admission note. PLAN: See admission note. SAJAN STANFORD MD Attending Psychiatrist head refrigeration engineer Pager [phone] documented in this encounter H&P Notes * Sajan Stanford MD - 03/22/2011 1906 EST Inpatient Admission Psychiatric Evaluation Admit Date: 03/22/2011 Date Of service: 03/22/2011 [facility] Outpatient providers: Huang Welsh NP PCP: Dr. Sevilla Information Obtained from: patient, patient's daughter, paperwork, [facility] records Legal Status: Admission is involuntary [...] Mr. Santiago, who was discharged from the [facility] on 03/19/11 after a two week [...] ultimately requiring voluntary inpatient psychiatric treatment in [place], [place], where Mr. Santiago and his had lived for many years. During that admission, Mr. Santiago was started on a regimen including duloxetine and mirtazapine. In May of 2010, at the end of that stay, Mr. Santiago's daughter travelled to [place], helped him sell his home, and moved him and his belongings to [place], where she rented an apartment in [place]. 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 Santiago has appeared progressively aimless and lacking in motivation. While his house has remained neat and senior risk analyst, Mr. Santiago has begun to sleep late and has become socially isolated. He seems hopeless and unhappy. In mid-February, when Mr. Sals symptoms became intolerable, he was assessed by a turkish line attendant at [facility], where he answered affirmatively to questions about suicidal ideation. An admission to the [facility] was arranged, and under the care of Dr. Banegas, Mr. Sals regimen was changed, and in place of duloxetine and mirtazapine, perphenazine, nortriptyline, and zolpidem were started. On 03/19/11, two weeks after admission, Mr. Santiago discharged against medical advice. That evening, he was transported to the [facility] ED again by his daughter, who was impressed with the intensityof her father's symptoms. He again underwent Crisis assessment. Mr. Santiago was discharged home, but was readmitted to [facility] the following morning (03/21/11) after being [...] not tolerating the regimen started there. Mr. Sals daughter is also concerned that his presentation [...] Source: unemployed : none Legal history: None Hoahaoism: did not discuss Ethnic and Cultural factors: none Other requests: none Significant Developmental / Childhood/ Social history: Raised in [place]. Had an alcoholic father. Moved to [place] in the 70s. Later moved to [place] with his second (Johanna), who was reportedly [...] Fingerstick 215 (*) 70 - 100 (mg/dl) Pumper Gauger ID [id number] Physical Exam: General appearance: alert, slowed mentation, [...] for educational level Short Term Memory: intact Organ Teacher Memory: intact Capacity for Abstraction: intact Assessment: [...] presentation. Multiaxial Diagnostic Impression (including Differential Diagnosis) Marietta I: Major Depression, single episode, with psychotic features Marietta II: deferred Marietta III: HTN, CAD s/p PCI with stent, type II DM, h/o nephrolithiasis, s/p cholecystectomy Marietta IV: , unemployed, recently relocated, lives alone Marietta V: 21-30 behavior considerably influenced by delusions [...] sent along with the clinician's EE paperwork. [facility] to obtain this. Acuity [...] documented in this encounter Procedure Notes * Drywall Taper, Scan - 05/13/2011 0839 ESTAssociated Order(s): ECG REPORT - SCANNED * Drywall Taper, Scan - 04/07/2011 0808 ESTAssociated Order(s): ECG REPORT - SCANNED * Drywall Taper, Scan - 03/26/2011 0711 ESTAssociated Order(s): ECG REPORT - SCANNED documented in this encounter Consult Notes * Benito Mejia RD - 04/04/2011 1445 ESTAssociated Order(s): CONSULT NUTRITION Nutrition consult for [...] and follow up BENITO MEJIA RD Pager [phone] * Juwan Walter MD - 03/26/2011 9341 EST PSYCHIATRIC CONSULT SERVICE DATE: 03/26/2011 IDENTIFYING DATA: A 60-year-old white male living in [place], [place] over the last year, moving from [place] to [place] to be near a daughter and grandchildren. He is since last August. He had worked in [employer] until last May. HISTORY OF PRESENT ILLNESS: The patient is admitted 03/22/11 in transition from the hospital in [facility] after an overdose of Ambien, 27 tablets. Please see admission note by Dr Jenae Metz. The patient, on interview, reviews that he has had some depression all his life, isolating, lackingassertion. After his in August, he acknowledged becoming more depressed. He had difficulty functioning and resigned his job last May. He then was hospitalized in June in [place] into a mental health unit. He was placed on Cymbalta and Remeron. He decided to move to [place] to be with hisdaughter. His daughter, however, moved from [place] to [facility] in the fall for a child togo to school and that was another loss. He describes that he was isolating, having a hard time functioning. He was next hospitalized in [facility] in February. He was there for approximately2 weeks, being placed on nortriptyline and perphenazine. After 2 weeks, he was discharged against medical advice, though apparently with daughter's intent to have him involved in a different treatment setting, perhaps in [facility] or [facility]. He describes, while staying at a hotel [...] treated with depression. DEVELOPMENTAL HISTORY: Raised in [place], having an older brother who several years [...] ruminative fashion. He is oriented to 03/26, April [employer]. IMPRESSION Marietta I: Major depressive disorder, chronic, recurrent, possibly with somatic delusions. Marietta II: Deferred. Marietta III: Status post zolpidem overdose, history of cardiac stents, diabetes mellitus. Marietta IV: Stressors moderate, related isolation, loss of . Marietta V: 35. This patient describes long history [...] right unilateral mode. TIME SPENT: Forty-five minutes [id number], all of which was spent reviewing the above history anddeveloping the treatment plan. Juwan Walter MD 10 31 AM / Juwan Walter MD cs Confirmation: [id number] Dictation ID: [id number] documented in this encounter OR Notes * Anesthesia Preprocedure Evaluation - Drywall Taper, Scan - 05/13/2011 0839 EST * Anesthesia Procedure Notes - Drywall Taper, Scan - 05/02/2011 0934 EST * Anesthesia Procedure Notes - Drywall Taper, Scan - 04/28/2011 0931 EST * Anesthesia Procedure Notes - Drywall Taper, Scan - 04/25/2011 0920 EST * Anesthesia Procedure Notes - Drywall Taper, Scan - 04/23/2011 0909 EST * Anesthesia Procedure Notes - Drywall Taper, Scan - 04/18/2011 0850 EST * Anesthesia Procedure Notes - Drywall Taper, Scan - 04/16/2011 0958 EST * Anesthesia Procedure Notes - Drywall Taper, Scan - 04/09/2011 0951 EST * Anesthesia Procedure Notes - Drywall Taper, Scan - 04/08/2011 0943 EST * Anesthesia Procedure Notes - Drywall Taper, Scan - 04/07/2011 1043 EST * Anesthesia Procedure Notes - Drywall Taper, Scan - 04/04/2011 0938 EST * Anesthesia Procedure Notes - Drywall Taper, Scan - 04/02/2011 0915 EST * Anesthesia Procedure Notes - Drywall Taper, Scan - 03/27/2011 1013 EST documented in this encounter Miscellaneous Notes * Scanned Note-Null - Drywall Taper, Scan - 05/13/2011 0839 EST * Scanned Note-Null - Drywall Taper, Scan - 05/13/2011 0839 EST * Scanned Note-Null - Drywall Taper, Scan - 05/13/2011 0839 EST * Scanned Note-Null - Drywall Taper, Scan - 05/13/2011 0839 EST * Scanned Note-Null - Drywall Taper, Scan - 05/13/2011 0839 EST * Plan of Care - Drywall Taper, Scan - 05/13/2011 0839 EST * Scanned Note-Null - Drywall Taper, Scan - 05/09/2011 1337 EST * Plan of Care - Ivett Michel RN - 05/05/2011 0545 EST Problem: ALTERATION IN SLEEP Goal: Reports Nightly Sleep, Duration And Quality Outcome: Not Met This Shift Active Multi-Disciplinary problems: ALTERED THOUGHT PROCESSES [645163] (03/22/11) ALTERATION IN SLEEP [193469] (03/23/11) KNOWLEDGE DEFICIT [022661] (04/07/11) NUTRITION [173204] (04/07/11) RISK FOR INFECTION [424045] (04/07/11) GLYCEMIA IMBALANCE [420599] (04/07/11) ANXIETY [651881] (04/09/11) Ineffective Coping [246766] (04/09/11) SELF CARE DEFICIT [304257] (04/09/11) ALTERATION IN MOOD [086665] (04/09/11) Discharge Planning [898983] (04/27/11) Data: See observation record. Action: Continued on every 30 minute observations through the night. Response: Requested/received ambien 10 mg po at 2356. Remained awake watching TV and snacking untilretiring to bed and asleep at 0152. Appeared to sleep comfortably x 4 hours. Ivett Michel RN 05/05/2011 5:43 * Plan of Cyndie - Christina Torres - 05/04/2011 2207 EST [...] behavior Active Multi-Disciplinary problems: ALTERED THOUGHT PROCESSES [297723] (03/22/11) ALTERATION IN SLEEP [940555] (03/23/11) KNOWLEDGE DEFICIT [218229] (04/07/11) NUTRITION [156533] (04/07/11) RISK FOR INFECTION [513838] (04/07/11) GLYCEMIA IMBALANCE [260274] (04/07/11) ANXIETY [386474] (04/09/11) Ineffective Coping [147630] (04/09/11) SELF CARE DEFICIT [969364] (04/09/11) ALTERATION IN MOOD [317162] (04/09/11) Discharge Planning [702724] (04/27/11) Data: The patient denies SI and [...] of Care - Christina Torres - 05/03/2011 5962 EST Problem: ALTERED THOUGHT PROCESSES Goal: Desires [...] to relieve anxiety. Pt took ambien at 2216. Awaiting results. Pt agreed to discuss anxiety with MD and utilize other anxiety coping mechanisms such as meditation. Watching tv with no further complaint at this time. CHRISTINA TORRES RN 05/03/2011 22:47 * Plan of Care - Cyndie Redman. - 05/03/2011 0644 EST Problem: ALTERATION IN SLEEP Goal: Reports Nightly Sleep, Duration And Quality Intervention: Document duration, quality of sleep and reasons Active Multi-Disciplinary problems: ALTERED THOUGHT PROCESSES [228198] (03/22/11) ALTERATION IN SLEEP [721935] (03/23/11) KNOWLEDGE DEFICIT [373133] (04/07/11) NUTRITION [949415] (04/07/11) RISK FOR INFECTION [022320] (04/07/11) GLYCEMIA IMBALANCE [671947] (04/07/11) ANXIETY [764527] (04/09/11) Ineffective Coping [871206] (04/09/11) SELF CARE DEFICIT [486084] (04/09/11) ALTERATION IN MOOD [895672] (04/09/11) Discharge Planning [158738] (04/27/11) Data: pt watched tv in the [...] EST Active Multi-Disciplinary problems: ALTERED THOUGHT PROCESSES [944786] (03/22/11) ALTERATION IN SLEEP [224753] (03/23/11) KNOWLEDGE DEFICIT [517750] (04/07/11) NUTRITION [757144] (04/07/11) RISK FOR INFECTION [925703] (04/07/11) GLYCEMIA IMBALANCE [736559] (04/07/11) ANXIETY [386316] (04/09/11) Ineffective Coping [593321] (04/09/11) SELF CARE DEFICIT [090221] (04/09/11) ALTERATION IN MOOD [907213] (04/09/11) Discharge Planning [080503] (04/27/11) Data: Pt slept in much of [...] Response: Looking ready for the move to [facility] near his daughter.. Dahlia Hernández RN 05/02/2011 22:49 * Plan of Care - Tamika Cordero 05/02/2011 1521 EST Problem: Discharge Planning Goal: Patient/Family Participate In Treatment And DC Plans Outcome: Ongoing Active Multi-Disciplinary problems: ALTERED THOUGHT PROCESSES [005239] (03/22/11) ALTERATION IN SLEEP [230920] (03/23/11) KNOWLEDGE DEFICIT [186754] (04/07/11) NUTRITION [257619] (04/07/11) RISK FOR INFECTION [736017] (04/07/11) GLYCEMIA IMBALANCE [977802] (04/07/11) ANXIETY [407693] (04/09/11) Ineffective Coping [785435] (04/09/11) SELF CARE DEFICIT [430751] (04/09/11) ALTERATION IN MOOD [336476] (04/09/11) Discharge Planning [630684] (04/27/11) Data: Was npo for ECT this [...] Tamika Cordero RN 05/02/2011 13:28 * Anesthesia Post-Annieal - Monika Kamara - 05/02/2011 0930 EST Post Anesthesia Evaluation [...] (05/02/11799), SpO2: 99 % (05/02/11799), Pulse: 78 (05/02/11 08),Numeric Pain Level (Scale 1-10): 0 Adult Nonverbal [...] MONIKA KAMARA MD 05/02/2011 9:30 * Anesthesia Pre-Eval - Kee Fischer - 05/02/2011 0912 EST [...] Unilateral Dosing Protocol: 0.3 ms Pulse-width Protocol ([facility]) Pulse width: 0.3 msec Frequency: 50 Hz [...] reasons Active Multi-Disciplinary problems: ALTERED THOUGHT PROCESSES [506119] (03/22/11) ALTERATION IN SLEEP [428467] (03/23/11) KNOWLEDGE DEFICIT [759512] (04/07/11) NUTRITION [272741] (04/07/11) RISK FOR INFECTION [117050] (04/07/11) GLYCEMIA IMBALANCE [020872] (04/07/11) ANXIETY [116600] (04/09/11) Ineffective Coping [542491] (04/09/11) SELF CARE DEFICIT [189488] (04/09/11) ALTERATION IN MOOD [306945] (04/09/11) Discharge Planning [718626] (04/27/11) Data: pt 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 Received ambien at midnight. Pt npo since midnight. He was in bed and asleep by 0130 and appeared to sleep for the rest of the night. Action: monitored on routine observations Response: pt sleeping, no signs of distress. Cyndie Redman RN 05/02/2011 6:58 * Plan of Care - Dahlia Hernández - 05/01/2011 2132 EST Active Multi-Disciplinary problems: ALTERED THOUGHT PROCESSES [742918] (03/22/11) ALTERATION IN SLEEP [257288] (03/23/11) KNOWLEDGE DEFICIT [850507] (04/07/11) NUTRITION [969923] (04/07/11) RISK FOR INFECTION [213613] (04/07/11) GLYCEMIA IMBALANCE [950276] (04/07/11) ANXIETY [331214] (04/09/11) Ineffective Coping [017886] (04/09/11) SELF CARE DEFICIT [291993] (04/09/11) ALTERATION IN MOOD [788936] (04/09/11) Discharge Planning [257660] (04/27/11) Data: Pt prepared for ECT, npo after MN no Benz0s after 1999. Saline lock ordered for the A.M. Pt Talked about Discharge plans and his anxiety. Agrees that he has benefited form tx here. Action: Prepare for ECT Thursday and discharge next week. Response: Some discharge anxiety. Seems to have a good plan, Dahlia Hernández, NAHUN 05/01/2011 21:32 * Plan of Care - Abril Sheppard RN - 05/01/2011 0619 EST Problem: ALTERATION IN SLEEP Goal: Reports Nightly Sleep, Duration And Quality Intervention: Document duration, quality of sleep and reasons Active Multi-Disciplinary problems: ALTERED THOUGHT PROCESSES [040384] (03/22/11) ALTERATION IN SLEEP [271722] (03/23/11) KNOWLEDGE DEFICIT [814633] (04/07/11) NUTRITION [483474] (04/07/11) RISK FOR INFECTION [345712] (04/07/11) GLYCEMIA IMBALANCE [095836] (04/07/11) ANXIETY [620552] (04/09/11) Ineffective Coping [602228] (04/09/11) SELF CARE DEFICIT [438588] (04/09/11) ALTERATION IN MOOD [938802] (04/09/11) Discharge Planning [554557] (04/27/11) Data: Pt in TV room at [...] Care - Zamzam Sher RN - 04/30/2011 9875 EST Problem: ALTERATION IN MOOD Goal: Desires Improved Mood Outcome: Ongoing Active Multi-Disciplinary problems: ALTERED THOUGHT PROCESSES [298176] (03/22/11) ALTERATION IN SLEEP [861667] (03/23/11) KNOWLEDGE DEFICIT [223074] (04/07/11) NUTRITION [055504] (04/07/11) RISK FOR INFECTION [019015] (04/07/11) GLYCEMIA IMBALANCE [408963] (04/07/11) ANXIETY [436677] (04/09/11) Ineffective Coping [710119] (04/09/11) SELF CARE DEFICIT [781784] (04/09/11) ALTERATION IN MOOD [783102] (04/09/11) Data: Patient napped at start of [...] with peers. Had PRN Motrin for pain 09/27 shoulder pain at 2044. Is on routine [...] Ongoing Active Multi-Disciplinary problems: ALTERED THOUGHT PROCESSES [031333] (03/22/11) ALTERATION IN SLEEP [731550] (03/23/11) KNOWLEDGE DEFICIT [362814] (04/07/11) NUTRITION [876790] (04/07/11) RISK FOR INFECTION [882356] (04/07/11) GLYCEMIA IMBALANCE [429562] (04/07/11) ANXIETY [516428] (04/09/11) Ineffective Coping [899727] (04/09/11) SELF CARE DEFICIT [950553] (04/09/11) ALTERATION IN MOOD [492360] (04/09/11) Discharge Planning [673914] (04/27/11) Data: Was npo for ECT this morning. Had a maria isabel in place. Was escorted to [facility] by the T and returned to the unit after the [...] anesthesia pre-operative protocol. HOWARD LIMA CRNA 04/30/2011 Cosigned by Marely Josue MD at 05/05/2011 7:40 EST * ECT Report - Leni Dang MD [...] Unilateral Dosing Protocol: 0.3 ms Pulse-width Protocol ([facility]) Pulse width: 0.3 msec Frequency: 50 Hz [...] reasons Active Multi-Disciplinary problems: ALTERED THOUGHT PROCESSES [723876] (03/22/11) ALTERATION IN SLEEP [064148] (03/23/11) KNOWLEDGE DEFICIT [948015] (04/07/11) NUTRITION [599610] (04/07/11) RISK FOR INFECTION [155768] (04/07/11) GLYCEMIA IMBALANCE [732754] (04/07/11) ANXIETY [788819] (04/09/11) Ineffective Coping [601566] (04/09/11) SELF CARE DEFICIT [280187] (04/09/11) ALTERATION IN MOOD [469694] (04/09/11) Discharge Planning [131383] (04/27/11) Data: Pt in TV room @ [...] Care - Zamzam Sher RN - 04/29/2011 1659 EST Problem: ALTERATION IN MOOD Goal: Desires Improved Mood Outcome: Ongoing Active Multi-Disciplinary problems: ALTERED THOUGHT PROCESSES [089340] (03/22/11) ALTERATION IN SLEEP [526701] (03/23/11) KNOWLEDGE DEFICIT [587532] (04/07/11) NUTRITION [486819] (04/07/11) RISK FOR INFECTION [047693] (04/07/11) GLYCEMIA IMBALANCE [501034] (04/07/11) ANXIETY [247981] (04/09/11) Ineffective Coping [154812] (04/09/11) SELF CARE DEFICIT [963155] (04/09/11) ALTERATION IN MOOD [422703] (04/09/11) Data: Patient awake and out of [...] Percocet for pain 6/10 shoulder pain at 2049. Is on routine observations. Has next ECT [...] Care - Meghan Melchor RN - 04/29/2011 7309 EST Problem: NUTRITION Patient unable to self-regulate blood glucose level Goal: Blood Glucose Control Maintain plasma glucose levels within expected range. Outcome: Met This Shift Active Multi-Disciplinary problems: ALTERED THOUGHT PROCESSES [559089] (03/22/11) ALTERATION IN SLEEP [841031] (03/23/11) KNOWLEDGE DEFICIT [934033] (04/07/11) NUTRITION [504835] (04/07/11) RISK FOR INFECTION [544102] (04/07/11) GLYCEMIA IMBALANCE [820384] (04/07/11) ANXIETY [559802] (04/09/11) Ineffective Coping [986171] (04/09/11) SELF CARE DEFICIT [324658] (04/09/11) ALTERATION IN MOOD [800438] (04/09/11) Discharge Planning [463576] (04/27/11) Data: Denies SI/HI. Denies pain. Pleasant, [...] breakfast 101; fs before lunch 89. 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 He requested [...] EPPS RN 04/28/2011 21:23 * Plan of [facility], Phuong Bautista RN - 04/28/2011 7456 EST Problem: ALTERATION IN MOOD Goal: Desires Improved Mood Intervention: Staff observations of behavior Active Multi-Disciplinary problems: ALTERED THOUGHT PROCESSES [899499] (03/22/11) ALTERATION IN SLEEP [127221] (03/23/11) KNOWLEDGE DEFICIT [613246] (04/07/11) NUTRITION [109917] (04/07/11) RISK FOR INFECTION [860492] (04/07/11) GLYCEMIA IMBALANCE [001870] (04/07/11) ANXIETY [112104] (04/09/11) Ineffective Coping [489192] (04/09/11) SELF CARE DEFICIT [749517] (04/09/11) ALTERATION IN MOOD [037781] (04/09/11) Discharge Planning [627868] (04/27/11) Data: polite and coop. Affect mildly [...] Unilateral Dosing Protocol: 0.3 ms Pulse-width Protocol ([facility]) Pulse width: 0.3 msec Frequency: 50 Hz [...] JUWAN WALTER MD 04/28/2011 9:17 * Anesthesia Pre-Annieal - Carmen See, LESLYE - 04/28/2011 0904 EST Anesthesia ECT Pre-Evaluation [...] anesthesia pre-operative protocol. No change in health. CARMENKAY MARQUEZ 04/28/2011 Cosigned by Iggy Taylor MD at 04/28/2011 9:25 EST * Scanned Note-Null - Drywall Taper, Scan - 04/28/2011 0825 EST * Plan of Care - Teresita Colorado RN - 04/28/2011 0622 EST Problem: ALTERATION IN SLEEP Goal: Informs Staff If Unable To Sleep Outcome: Not Met This Shift Active Multi-Disciplinary problems: ALTERED THOUGHT PROCESSES [018561] (03/22/11) ALTERATION IN SLEEP [746624] (03/23/11) KNOWLEDGE DEFICIT [320964] (04/07/11) NUTRITION [331799] (04/07/11) RISK FOR INFECTION [408238] (04/07/11) GLYCEMIA IMBALANCE [096893] (04/07/11) ANXIETY [761133] (04/09/11) Ineffective Coping [313544] (04/09/11) SELF CARE DEFICIT [667014] (04/09/11) ALTERATION IN MOOD [690740] (04/09/11) Discharge Planning [570894] (04/27/11) Data: Pt awake until 0230, then [...] Ongoing Active Multi-Disciplinary problems: ALTERED THOUGHT PROCESSES [851728] (03/22/11) ALTERATION IN SLEEP [375883] (03/23/11) KNOWLEDGE DEFICIT [936512] (04/07/11) NUTRITION [754473] (04/07/11) RISK FOR INFECTION [641303] (04/07/11) GLYCEMIA IMBALANCE [976706] (04/07/11) ANXIETY [662479] (04/09/11) Ineffective Coping [566167] (04/09/11) SELF CARE DEFICIT [150497] (04/09/11) ALTERATION IN MOOD [986752] (04/09/11) Data: Patient napped at start of [...] Ongoing Active Multi-Disciplinary problems: ALTERED THOUGHT PROCESSES [310094] (03/22/11) ALTERATION IN SLEEP [092448] (03/23/11) KNOWLEDGE DEFICIT [150262] (04/07/11) NUTRITION [998580] (04/07/11) RISK FOR INFECTION [920300] (04/07/11) GLYCEMIA IMBALANCE [854683] (04/07/11) ANXIETY [772913] (04/09/11) Ineffective Coping [930162] (04/09/11) SELF CARE DEFICIT [868246] (04/09/11) ALTERATION IN MOOD [357176] (04/09/11) Discharge Planning [312236] (04/27/11) Data: Will be NPO for ECT [...] looking for a new apartment in the [facility] area. Tamika Cordero, NAHUN 04/27/2011 11:08 1515 Did admit to feeling anxious about discharge and at the same time was looking forward to leaving. Was able to discuss the reasons for wanting to move near his family in [facility], especiallyto get away from the isolation. * Plan of Care - Musa Yuen - 04/27/2011 0650 EST [...] Ongoing Active Multi-Disciplinary problems: ALTERED THOUGHT PROCESSES [241367] (03/22/11) ALTERATION IN SLEEP [884432] (03/23/11) KNOWLEDGE DEFICIT [377738] (04/07/11) NUTRITION [314516] (04/07/11) RISK FOR INFECTION [367853] (04/07/11) GLYCEMIA IMBALANCE [226531] (04/07/11) ANXIETY [707108] (04/09/11) Ineffective Coping [505818] (04/09/11) SELF CARE DEFICIT [095208] (04/09/11) ALTERATION IN MOOD [813741] (04/09/11) Data: Denies SI/HI. Later this evening [...] Management Active Multi-Disciplinary problems: ALTERED THOUGHT PROCESSES [612807] (03/22/11) ALTERATION IN SLEEP [174340] (03/23/11) KNOWLEDGE DEFICIT [805951] (04/07/11) NUTRITION [771909] (04/07/11) RISK FOR INFECTION [491138] (04/07/11) GLYCEMIA IMBALANCE [176675] (04/07/11) ANXIETY [092427] (04/09/11) Ineffective Coping [268922] (04/09/11) SELF CARE DEFICIT [443389] (04/09/11) ALTERATION IN MOOD [729609] (04/09/11) Data: Finger stick was 118 at [...] Quality Active Multi-Disciplinary problems: ALTERED THOUGHT PROCESSES [944813] (03/22/11) ALTERATION IN SLEEP [326076] (03/23/11) KNOWLEDGE DEFICIT [053695] (04/07/11) NUTRITION [339026] (04/07/11) RISK FOR INFECTION [048232] (04/07/11) GLYCEMIA IMBALANCE [373271] (04/07/11) ANXIETY [330168] (04/09/11) Ineffective Coping [536325] (04/09/11) SELF CARE DEFICIT [754757] (04/09/11) ALTERATION IN MOOD [837708] (04/09/11) Data: Pt watching TV when rec'd [...] Ongoing Active Multi-Disciplinary problems: ALTERED THOUGHT PROCESSES [829132] (03/22/11) ALTERATION IN SLEEP [587331] (03/23/11) KNOWLEDGE DEFICIT [082013] (04/07/11) NUTRITION [843093] (04/07/11) RISK FOR INFECTION [444582] (04/07/11) GLYCEMIA IMBALANCE [155755] (04/07/11) ANXIETY [188962] (04/09/11) Ineffective Coping [380164] (04/09/11) SELF CARE DEFICIT [580302] (04/09/11) ALTERATION IN MOOD [329998] (04/09/11) Data: Patient attended afternoon spiritual care group. Spent time in milieu reading. Ate dinner in the TV room. Appetite is fair. Reports continued mild stomach upset and decreased appetite. Enjoyed pass earlier today with his daughter and granddaughter. FS at 1700 was 240 (after eating [employer] [place] on pass) and at HS was 188. Did request and receive PRN Ativan at 1900 and had PRN Percocet for pain 09/27 [...] home. Requests to have Ambien at 2230. Curre antonialy still awake watching TV. Will continue to monitor. Zamzam Sher RN 04/25/2011 21:52 * Plan of Care - Alice Fatima RN - 04/25/2011 1112 EST Problem: ALTERATION IN MOOD Goal: Desires Improved Energy Level Active Multi-Disciplinary problems: ALTERED THOUGHT PROCESSES [331086] (03/22/11) ALTERATION IN SLEEP [217426] (03/23/11) KNOWLEDGE DEFICIT [374951] (04/07/11) NUTRITION [324510] (04/07/11) RISK FOR INFECTION [103087] (04/07/11) GLYCEMIA IMBALANCE [206439] (04/07/11) ANXIETY [400962] (04/09/11) Ineffective Coping [615896] (04/09/11) SELF CARE DEFICIT [690356] (04/09/11) ALTERATION IN MOOD [036250] (04/09/11) Data: The patient has been calm [...] hair removal tool upon return.o * Anesthesia Post-Justice Mcgregor CRNA - 04/25/2011 0951 EST Post Anesthesia Evaluation Note Date of Service: 04/25/2011 Shahnaz Santiago, a 60 y.o. year old male has received General Anesthesia He has been evaluated, assessed and discharged from anesthesia care with stable cardiorespiratory function and alert mental status. The last set of recorded vital signs and pain rating were reviewed: Temp: 37.3 ??C (99.1 ??F) (04/25/11 0915), Heart Rate: 71 BPM (04/25/11929), BP: 112/71 [...] anesthesia pre-operative protocol. JUSTICE WALSH CRNA 04/25/2011 Cosigned by Marely Josue MD at 05/05/2011 7:40 EST * ECT Report - Sajan Stanford MD [...] Unilateral Dosing Protocol: 0.3 ms Pulse-width Protocol ([facility]) Pulse width: 0.3 msec Frequency: 50 Hz [...] reasons Active Multi-Disciplinary problems: ALTERED THOUGHT PROCESSES [970178] (03/22/11) ALTERATION IN SLEEP [734564] (03/23/11) KNOWLEDGE DEFICIT [942101] (04/07/11) NUTRITION [425614] (04/07/11) RISK FOR INFECTION [266481] (04/07/11) GLYCEMIA IMBALANCE [240528] (04/07/11) ANXIETY [300894] (04/09/11) Ineffective Coping [917824] (04/09/11) SELF CARE DEFICIT [925006] (04/09/11) ALTERATION IN MOOD [411115] (04/09/11) Data: Pt awake, watching TV at [...] would talk to his day nurse, this expert medical writer advised him to speak with his [...] Care - Phoebe Epps RN - 04/24/2011 3015 EST Problem: ALTERATION IN MOOD Goal: Desires [...] EPPS RN 04/24/2011 21:04 * Plan of [facility] - Alice Fatima RN - 04/24/2011 1138 EST Problem: ALTERATION IN MOOD Goal: Desires Improved Energy Level Active Multi-Disciplinary problems: ALTERED THOUGHT PROCESSES [798369] (03/22/11) ALTERATION IN SLEEP [289486] (03/23/11) KNOWLEDGE DEFICIT [753575] (04/07/11) NUTRITION [605511] (04/07/11) RISK FOR INFECTION [742179] (04/07/11) GLYCEMIA IMBALANCE [795684] (04/07/11) ANXIETY [371330] (04/09/11) Ineffective Coping [782498] (04/09/11) SELF CARE DEFICIT [959536] (04/09/11) ALTERATION IN MOOD [669350] (04/09/11) Data: The patient was up and [...] reasons Active Multi-Disciplinary problems: ALTERED THOUGHT PROCESSES [120743] (03/22/11) ALTERATION IN SLEEP [872108] (03/23/11) KNOWLEDGE DEFICIT [393063] (04/07/11) NUTRITION [020557] (04/07/11) RISK FOR INFECTION [166811] (04/07/11) GLYCEMIA IMBALANCE [502976] (04/07/11) ANXIETY [611048] (04/09/11) Ineffective Coping [719507] (04/09/11) SELF CARE DEFICIT [886009] (04/09/11) ALTERATION IN MOOD [143428] (04/09/11) Data: Pt out in milieu, watching [...] 04/24/2011 6:32 * Plan of Care - Lorenzo, Fadumo Mondragon RN - 04/23/2011 3362 EST Active Multi-Disciplinary problems: ALTERED THOUGHT PROCESSES [000967] (03/22/11) ALTERATION IN SLEEP [068352] (03/23/11) KNOWLEDGE DEFICIT [262419] (04/07/11) NUTRITION [598174] (04/07/11) RISK FOR INFECTION [944382] (04/07/11) GLYCEMIA IMBALANCE [482003] (04/07/11) ANXIETY [455686] (04/09/11) Ineffective Coping [806559] (04/09/11) SELF CARE DEFICIT [551604] (04/09/11) ALTERATION IN MOOD [493857] (04/09/11) Data: Napping at start of shift. [...] wait and take some at HS. Fadumo Ventura RN 04/23/2011 18:56 * Plan of Care - Tamika Cordero - 04/23/2011 1500 EST Problem: ANXIETY Goal: Anxiety Is At Manageable Level Intervention: Encourage participation in care Active Multi-Disciplinary problems: ALTERED THOUGHT PROCESSES [261751] (03/22/11) ALTERATION IN SLEEP [008867] (03/23/11) KNOWLEDGE DEFICIT [916680] (04/07/11) NUTRITION [903361] (04/07/11) RISK FOR INFECTION [186887] (04/07/11) GLYCEMIA IMBALANCE [983767] (04/07/11) ANXIETY [750445] (04/09/11) Ineffective Coping [604187] (04/09/11) SELF CARE DEFICIT [617915] (04/09/11) ALTERATION IN MOOD [984285] (04/09/11) Data: Was npo for ECT this morning and had his maria isabel in place. Was escorted to [facility] for his treatment by the [facility] and [...] Tamika Cordero RN 04/23/2011 14:23 * Anesthesia Pre-Eval - Stephen Contreras CRNA - 04/23/2011 0851 EST Anesthesia ECT Pre-Evaluation [...] noted, follow standard anesthesia pre-operative protocol. STEPHEN CONTRERAS CRNA 04/23/2011 Cosigned by Angel Garcia at 04/24/2011 17:11 EST * ECT Report - Juwan Walter MD - 04/23/2011 0838 EST Psychiatry Procedure Note Title of Procedure: Electroconvulsive Therapy Date Performed: 04/23/2011 Time Performed: 0837 Treatment Number: 8 Treatment Type: Index Treatment [...] Unilateral Dosing Protocol: 0.3 ms Pulse-width Protocol ([facility]) Pulse width: 0.3 msec Frequency: 50 Hz [...] Ongoing Active Multi-Disciplinary problems: ALTERED THOUGHT PROCESSES [118494] (03/22/11) ALTERATION IN SLEEP [249000] (03/23/11) KNOWLEDGE DEFICIT [553026] (04/07/11) NUTRITION [947596] (04/07/11) RISK FOR INFECTION [724277] (04/07/11) GLYCEMIA IMBALANCE [568753] (04/07/11) ANXIETY [366349] (04/09/11) Ineffective Coping [815804] (04/09/11) SELF CARE DEFICIT [300881] (04/09/11) ALTERATION IN MOOD [570623] (04/09/11) Data: Patient was awake at onset [...] Ongoing Active Multi-Disciplinary problems: ALTERED THOUGHT PROCESSES [160210] (03/22/11) ALTERATION IN SLEEP [529529] (03/23/11) KNOWLEDGE DEFICIT [291797] (04/07/11) NUTRITION [088921] (04/07/11) RISK FOR INFECTION [342989] (04/07/11) GLYCEMIA IMBALANCE [130476] (04/07/11) ANXIETY [955088] (04/09/11) Ineffective Coping [433986] (04/09/11) SELF CARE DEFICIT [476828] (04/09/11) ALTERATION IN MOOD [691269] (04/09/11) Data: Patient napped at the start [...] Care - Mega Deleon RN - 04/22/2011 0318 EST Problem: ALTERATION IN SLEEP Goal: Reports Nightly Sleep, Duration And Quality Outcome: Ongoing Active Multi-Disciplinary problems: ALTERED THOUGHT PROCESSES [622507] (03/22/11) ALTERATION IN SLEEP [691074] (03/23/11) KNOWLEDGE DEFICIT [899066] (04/07/11) NUTRITION [769172] (04/07/11) RISK FOR INFECTION [031225] (04/07/11) GLYCEMIA IMBALANCE [013944] (04/07/11) ANXIETY [687648] (04/09/11) Ineffective Coping [387327] (04/09/11) SELF CARE DEFICIT [623801] (04/09/11) ALTERATION IN MOOD [774598] (04/09/11) Data: Patient was awake at onset [...] Care - Phoebe Epps RN - 04/21/2011 2233 EST Problem: SELF CARE DEFICIT Goal: Goes [...] mechanisms Active Multi-Disciplinary problems: ALTERED THOUGHT PROCESSES [170475] (03/22/11) ALTERATION IN SLEEP [149684] (03/23/11) KNOWLEDGE DEFICIT [451731] (04/07/11) NUTRITION [813351] (04/07/11) RISK FOR INFECTION [357233] (04/07/11) GLYCEMIA IMBALANCE [709381] (04/07/11) ANXIETY [650874] (04/09/11) Ineffective Coping [066254] (04/09/11) SELF CARE DEFICIT [297266] (04/09/11) ALTERATION IN MOOD [810890] (04/09/11) Data: Ate breakfast in the dining [...] EST Active Multi-Disciplinary problems: ALTERED THOUGHT PROCESSES [983482] (03/22/11) ALTERATION IN SLEEP [188370] (03/23/11) KNOWLEDGE DEFICIT [686044] (04/07/11) NUTRITION [164327] (04/07/11) RISK FOR INFECTION [585778] (04/07/11) GLYCEMIA IMBALANCE [998818] (04/07/11) ANXIETY [985695] (04/09/11) Ineffective Coping [752805] (04/09/11) SELF CARE DEFICIT [581037] (04/09/11) ALTERATION IN MOOD [709731] (04/09/11) Data: Pt up in tv room at start of shift, req and rec ambien 10 mg at 23:45 and watched tv till 01:30 then went to bed and appears to be sleeping. Action: Remains on routine observations. Response: Sleeping at present, slept concepción 5 hours. Ladan Saldivar LPN 04/21/2011 6:04 Cosigned by Ivett Michel RN at 04/21/2011 6:22 EST * Plan of Ervin Hunter RN - 04/20/2011 1428 EST Problem: ALTERATION IN MOOD Goal: Desires Improved Energy Level Outcome: Ongoing Active Multi-Disciplinary problems: ALTERED THOUGHT PROCESSES [615476] (03/22/11) ALTERATION IN SLEEP [823762] (03/23/11) KNOWLEDGE DEFICIT [162062] (04/07/11) NUTRITION [090794] (04/07/11) RISK FOR INFECTION [171327] (04/07/11) GLYCEMIA IMBALANCE [455934] (04/07/11) ANXIETY [632326] (04/09/11) Ineffective Coping [128667] (04/09/11) SELF CARE DEFICIT [522795] (04/09/11) ALTERATION IN MOOD [166786] (04/09/11) Data: Pt ate breakfast in DR. [...] Osorio RN 04/20/2011 14:20 * Plan of Ladan Crenshaw LPN - 04/20/2011 0652 EST Active Multi-Disciplinary problems: ALTERED THOUGHT PROCESSES [281157] (03/22/11) ALTERATION IN SLEEP [259178] (03/23/11) KNOWLEDGE DEFICIT [918147] (04/07/11) NUTRITION [712185] (04/07/11) RISK FOR INFECTION [138862] (04/07/11) GLYCEMIA IMBALANCE [297741] (04/07/11) ANXIETY [761906] (04/09/11) Ineffective Coping [765165] (04/09/11) SELF CARE DEFICIT [317596] (04/09/11) ALTERATION IN MOOD [111812] (04/09/11) Data: Pt up in tv room at start of shift until 01:30 then went to bed till 03:30. Up snacking and watching tv untio 04:30 then back to bed. Action: Remains on routine observations Response: kSlept concepción 4 hours. And is sleeping at present. Ladan Saldivar LPN 04/20/2011 6:38 Cosigned by Cyndie Redman at 04/20/2011 7:20 EST * Plan of Care - Zamzam Sher RN - 04/19/2011 8134 EST Problem: ALTERATION IN MOOD Goal: Desires Improved Mood Outcome: Ongoing Active Multi-Disciplinary problems: ALTERED THOUGHT PROCESSES [529220] (03/22/11) ALTERATION IN SLEEP [643322] (03/23/11) KNOWLEDGE DEFICIT [915129] (04/07/11) NUTRITION [779492] (04/07/11) RISK FOR INFECTION [132107] (04/07/11) GLYCEMIA IMBALANCE [595581] (04/07/11) ANXIETY [582845] (04/09/11) Ineffective Coping [464844] (04/09/11) SELF CARE DEFICIT [151739] (04/09/11) ALTERATION IN MOOD [069283] (04/09/11) Data: Patient napped at the start [...] environment Active Multi-Disciplinary problems: ALTERED THOUGHT PROCESSES [668370] (03/22/11) ALTERATION IN SLEEP [638144] (03/23/11) KNOWLEDGE DEFICIT [565760] (04/07/11) NUTRITION [205258] (04/07/11) RISK FOR INFECTION [084713] (04/07/11) GLYCEMIA IMBALANCE [668395] (04/07/11) ANXIETY [931059] (04/09/11) Ineffective Coping [442352] (04/09/11) SELF CARE DEFICIT [842583] (04/09/11) ALTERATION IN MOOD [063113] (04/09/11) Data: The patient has been out [...] shift. * Plan of Care - Cyndie Redman - 04/19/2011 0633 EST Problem: ALTERATION IN SLEEP Goal: Reports Nightly Sleep, Duration And Quality Intervention: Document duration, quality of sleep and reasons Active Multi-Disciplinary problems: ALTERED THOUGHT PROCESSES [909894] (03/22/11) ALTERATION IN SLEEP [960031] (03/23/11) KNOWLEDGE DEFICIT [774496] (04/07/11) NUTRITION [130896] (04/07/11) RISK FOR INFECTION [207766] (04/07/11) GLYCEMIA IMBALANCE [874850] (04/07/11) ANXIETY [059984] (04/09/11) Ineffective Coping [033499] (04/09/11) SELF CARE DEFICIT [584263] (04/09/11) ALTERATION IN MOOD [975899] (04/09/11) Data: 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 He requested and received repeat dose of [...] TORRES RN 04/18/2011 21:41 * Plan of [facility] - Tamika Cordero - 04/18/2011 1522 EST Problem: NUTRITION Patient unable to self-regulate blood glucose level Goal: Blood Glucose Control Maintain plasma glucose levels within expected range. Intervention: Hypoglycemia Management Active Multi-Disciplinary problems: ALTERED THOUGHT PROCESSES [336391] (03/22/11) ALTERATION IN SLEEP [239467] (03/23/11) KNOWLEDGE DEFICIT [182744] (04/07/11) NUTRITION [754524] (04/07/11) RISK FOR INFECTION [771260] (04/07/11) GLYCEMIA IMBALANCE [040543] (04/07/11) ANXIETY [499875] (04/09/11) Ineffective Coping [978359] (04/09/11) SELF CARE DEFICIT [629375] (04/09/11) ALTERATION IN MOOD [382590] (04/09/11) Data: Was npo for ECT this morning. Maria Isabel was not inserted prior to going for treatment, Because the IVRN was not able to insert it. Was ecorted to PPR by QC SCIENTIST. Was returned to the floor by the QC SCIENTIST via wheelchair. Denied any problems with side effects of ECT. Had received Toradol in PPR to prevent&/or reduce a headache. Was pleased [...] Tamika Cordero RN 04/18/2011 11:46 * Anesthesia Post-Pro - Josue Martinez (Anes) - 04/18/2011 1001 EST Post Anesthesia Evaluation [...] Unilateral Dosing Protocol: 0.3 ms Pulse-width Protocol ([facility]) Pulse width: 0.3 msec Frequency: 50 Hz [...] reasons Active Multi-Disciplinary problems: ALTERED THOUGHT PROCESSES [929583] (03/22/11) ALTERATION IN SLEEP [747012] (03/23/11) KNOWLEDGE DEFICIT [892419] (04/07/11) NUTRITION [722655] (04/07/11) RISK FOR INFECTION [133895] (04/07/11) GLYCEMIA IMBALANCE [442745] (04/07/11) ANXIETY [480318] (04/09/11) Ineffective Coping [792164] (04/09/11) SELF CARE DEFICIT [780750] (04/09/11) ALTERATION IN MOOD [469976] (04/09/11) Data: pt awake at 2330 watching tv. At 2353, pt requested and received his repeat dose of ambien. He continued to watch tv after that, and work on a word puzzle. He was in bed and asleep shortly after 0130. He was awake again at 0415 and went out to common area to watch tv. He went back to bed and was asleep shortly after 0500. Pleasant on interactions. Voiced no complaints. NPO after midnight. Action: monitored on routine observations Response: pt sleeping, no signs of distress. Will continue to monitor. Cyndie Redman RN 04/18/2011 6:36 * Plan of Care - Dahlia Hernández - 04/17/20112008 EST Active Multi-Disciplinary problems: ALTERED THOUGHT PROCESSES [934467] (03/22/11) ALTERATION IN SLEEP [329258] (03/23/11) KNOWLEDGE DEFICIT [984483] (04/07/11) NUTRITION [526167] (04/07/11) RISK FOR INFECTION [269570] (04/07/11) GLYCEMIA IMBALANCE [856645] (04/07/11) ANXIETY [194646] (04/09/11) Ineffective Coping [013656] (04/09/11) SELF CARE DEFICIT [965783] (04/09/11) ALTERATION IN MOOD [535582] (04/09/11) Data: Pt socialized with peers all [...] management Active Multi-Disciplinary problems: ALTERED THOUGHT PROCESSES [730666] (03/22/11) ALTERATION IN SLEEP [593609] (03/23/11) KNOWLEDGE DEFICIT [205327] (04/07/11) NUTRITION [243478] (04/07/11) RISK FOR INFECTION [233516] (04/07/11) GLYCEMIA IMBALANCE [308793] (04/07/11) ANXIETY [527608] (04/09/11) Ineffective Coping [269466] (04/09/11) SELF CARE DEFICIT [741257] (04/09/11) ALTERATION IN MOOD [475198] (04/09/11) Data: Ate breakfast in the dining [...] 04/17/2011 14:09 * Plan of Care - Ladna Saldivar LPN - 04/17/2011 0611 EST Active Multi-Disciplinary problems: ALTERED THOUGHT PROCESSES [091974] (03/22/11) ALTERATION IN SLEEP [922047] (03/23/11) KNOWLEDGE DEFICIT [417500] (04/07/11) NUTRITION [883839] (04/07/11) RISK FOR INFECTION [701560] (04/07/11) GLYCEMIA IMBALANCE [045676] (04/07/11) ANXIETY [580206] (04/09/11) Ineffective Coping [854401] (04/09/11) SELF CARE DEFICIT [047052] (04/09/11) ALTERATION IN MOOD [973292] (04/09/11) Data: Pt req and received Ambien at 23:44 and watched tv until 01:30. Went to bed and slept till 03then up snacking and watching tv with peer. Given Ativan at pts request at 03:59. Went to bed at 04:30 and appears to be asleep. Action: Remains on routine observations. Response: Sleeping at present, slept concepción 4 hours, Ladan Saldivar LPN 04/17/2011 6:11 Cosigned by Abril Sheppard RN at 04/17/2011 6:51 EST * Plan of [facility] [place], Phuong Bautista RN - 04/16/2011 7125 EST Problem: ALTERATION IN MOOD Goal: Desires Improved Mood Intervention: Staff observations of behavior Active Multi-Disciplinary problems: ALTERED THOUGHT PROCESSES [729732] (03/22/11) ALTERATION IN SLEEP [565259] (03/23/11) KNOWLEDGE DEFICIT [592336] (04/07/11) NUTRITION [640682] (04/07/11) RISK FOR INFECTION [398431] (04/07/11) GLYCEMIA IMBALANCE [466710] (04/07/11) ANXIETY [677934] (04/09/11) Ineffective Coping [946747] (04/09/11) SELF CARE DEFICIT [411922] (04/09/11) ALTERATION IN MOOD [964336] (04/09/11) Data: pt seemed to be in [...] Ongoing Active Multi-Disciplinary problems: ALTERED THOUGHT PROCESSES [138206] (03/22/11) ALTERATION IN SLEEP [731023] (03/23/11) KNOWLEDGE DEFICIT [176949] (04/07/11) NUTRITION [664036] (04/07/11) RISK FOR INFECTION [187593] (04/07/11) GLYCEMIA IMBALANCE [711053] (04/07/11) ANXIETY [124222] (04/09/11) Ineffective Coping [057300] (04/09/11) SELF CARE DEFICIT [878175] (04/09/11) ALTERATION IN MOOD [989755] (04/09/11) Data: Pt to ECT this am [...] Unilateral Dosing Protocol: 0.3 ms Pulse-width Protocol ([facility]) Pulse width: 0.3 msec Frequency: 50 Hz [...] Anesthesia Pre-Eval - Mer Espinosa - 04/16/2011 0941 EST Anesthesia ECT Pre-Evaluation Name: SHAHNAZ SANTIAGO [...] Ongoing Active Multi-Disciplinary problems: ALTERED THOUGHT PROCESSES [124579] (03/22/11) ALTERATION IN SLEEP [198683] (03/23/11) KNOWLEDGE DEFICIT [990174] (04/07/11) NUTRITION [594556] (04/07/11) RISK FOR INFECTION [828392] (04/07/11) GLYCEMIA IMBALANCE [619766] (04/07/11) ANXIETY [736278] (04/09/11) Ineffective Coping [521933] (04/09/11) SELF CARE DEFICIT [168358] (04/09/11) ALTERATION IN MOOD [254739] (04/09/11) Data: Requested repeat dose of PRN [...] Ongoing Active Multi-Disciplinary problems: ALTERED THOUGHT PROCESSES [605994] (03/22/11) ALTERATION IN SLEEP [092005] (03/23/11) KNOWLEDGE DEFICIT [209638] (04/07/11) NUTRITION [438246] (04/07/11) RISK FOR INFECTION [966309] (04/07/11) GLYCEMIA IMBALANCE [687915] (04/07/11) ANXIETY [911528] (04/09/11) Ineffective Coping [691733] (04/09/11) SELF CARE DEFICIT [850354] (04/09/11) ALTERATION IN MOOD [460707] (04/09/11) Data: Patient in bed at beginning of shift. Pleasant and cooperative. Woke up for 1700 Byetta injection. One of the two pens in drawer is cracked. Med compliant and cooperative about NPO order for tomorrow mornings ECT. Pt requested all HS meds except his ambien at 1900 and has been in tv room Ev[employer] or working on his word puzzle book. His FS at 1700 was 235. Pt reported feeling clammy and hot around 2100. FS at 2100 dvd317. Action: RN continues to monitor pt for changes in mood or behavior during shift. Response: Pt currently reports GI upset. Waiting for second dose of ambien before going to bed and reports feeling a bit anxious about tomorrows ECT. Amanda Horn RN 04/15/2011 21:55 * Plan of Care - GilTamika berry Juli - 04/15/2011 1513 EST Problem: NUTRITION Patient unable to self-regulate blood glucose level Goal: Blood Glucose Control Maintain plasma glucose levels within expected range. Intervention: Hyperglycemia Management Active Multi-Disciplinary problems: ALTERED THOUGHT PROCESSES [641336] (03/22/11) ALTERATION IN SLEEP [980119] (03/23/11) KNOWLEDGE DEFICIT [316025] (04/07/11) NUTRITION [727432] (04/07/11) RISK FOR INFECTION [169689] (04/07/11) GLYCEMIA IMBALANCE [472629] (04/07/11) ANXIETY [643013] (04/09/11) Ineffective Coping [559828] (04/09/11) SELF CARE DEFICIT [020958] (04/09/11) ALTERATION IN MOOD [878678] (04/09/11) Data: The patient's finger stick at [...] a lot to pass the time. The Sariah Pens were sent to the pharmacy for [...] EST Active Multi-Disciplinary problems: ALTERED THOUGHT PROCESSES [737917] (03/22/11) ALTERATION IN SLEEP [825158] (03/23/11) KNOWLEDGE DEFICIT [138347] (04/07/11) NUTRITION [392974] (04/07/11) RISK FOR INFECTION [979756] (04/07/11) GLYCEMIA IMBALANCE [786694] (04/07/11) ANXIETY [048648] (04/09/11) Ineffective Coping [760781] (04/09/11) SELF CARE DEFICIT [404654] (04/09/11) ALTERATION IN MOOD [801526] (04/09/11) Data: Pt req and received Ambien 10mg at 23:40. Informed pt I would like to repeat fs at 02 and he watched tv Till 02:30 . FS was 108 and pt went an had snack. Action: Remains on routine observations. Response: Slept 4 hours. Ladan Saldivar LPN 04/15/2011 6:19 Cosigned by Abbi Nash RN at 04/15/2011 6:49 EST * Plan of Care - Arthur Valenzuela RN - 04/14/2011 2311 EST Problem: ALTERED THOUGHT PROCESSES Goal: Desires [...] three hours. Reported pass going well, went obiwon. Reported indigestion after returning. Patient's mood and [...] Care - Abril Sheppard RN - 04/14/2011 1696 EST Problem: SELF CARE DEFICIT Goal: Increase Group Attendance Intervention: Monitor & document participation Active Multi-Disciplinary problems: ALTERED THOUGHT PROCESSES [885218] (03/22/11) ALTERATION IN SLEEP [294935] (03/23/11) KNOWLEDGE DEFICIT [703427] (04/07/11) NUTRITION [088396] (04/07/11) RISK FOR INFECTION [692628] (04/07/11) GLYCEMIA IMBALANCE [098013] (04/07/11) ANXIETY [592045] (04/09/11) Ineffective Coping [489529] (04/09/11) SELF CARE DEFICIT [437083] (04/09/11) ALTERATION IN MOOD [716605] (04/09/11) Data: Pt isolative to his room most of shift. FS in am 143 (2 units Novolog administered), noon 238. Pt independently went to dining room for breakfast after awakening. Pt requested Ativan 1 mg afteram meds, when asked what his anxiety symptoms were, I don't know, this expert medical writer responded that somepeople experience muscle tension [...] Supportive interactions. Contact on-call resident. Response: Per Ivan, norogers insulin held d/t pt not eating. Pt declined attending groups or spendingtime in milieu. Pt spent most of day in bed, endorsed depressed feelings. Abril Sheppard RN 04/14/2011 14:34 Black leather bag with over-shoulder strap found in pt's room, labeled & placed in dirty utility room with pt's other belongings. * Plan of Care - Ladan Saldivar LPN - 04/14/2011 0640 EST Active Multi-Disciplinary problems: ALTERED THOUGHT PROCESSES [640322] (03/22/11) ALTERATION IN SLEEP [928262] (03/23/11) KNOWLEDGE DEFICIT [823390] (04/07/11) NUTRITION [445757] (04/07/11) RISK FOR INFECTION [042884] (04/07/11) GLYCEMIA IMBALANCE [135265] (04/07/11) ANXIETY [498743] (04/09/11) Ineffective Coping [895783] (04/09/11) SELF CARE DEFICIT [223795] (04/09/11) ALTERATION IN MOOD [185718] (04/09/11) Data: Pt req and received Ambien 10 mg at 23:41 went to bed at 01:30. Action: Remains on routine observations. Response: Slept six hours and is asleep at present Ladan Saldivar LPN 04/14/2011 6:40 Cosigned by Abbi Nash RN at 04/14/2011 6:58 EST * Plan of Care - Musa Yuen - 04/13/2011 1900 EST Problem: ANXIETY Goal: Anxiety Is At Manageable Level Outcome: Ongoing Active Multi-Disciplinary problems: ALTERED THOUGHT PROCESSES [939943] (03/22/11) ALTERATION IN SLEEP [337112] (03/23/11) KNOWLEDGE DEFICIT [887242] (04/07/11) NUTRITION [220538] (04/07/11) RISK FOR INFECTION [778033] (04/07/11) GLYCEMIA IMBALANCE [223795] (04/07/11) ANXIETY [138270] (04/09/11) Ineffective Coping [710064] (04/09/11) SELF CARE DEFICIT [533812] (04/09/11) ALTERATION IN MOOD [129332] (04/09/11) [id number] Data: Resting in bed at start of [...] continueto monitor. MEGHAN MELCHOR RN 04/13/2011 18:50 [id number] Assumed care of pt. Pleasant and cooperative [...] Care - Matt Coats RN - 04/13/2011 0620 EST Problem: ALTERATION IN SLEEP Goal: Reports Nightly Sleep, Duration And Quality Outcome: Ongoing Active Multi-Disciplinary problems: ALTERED THOUGHT PROCESSES [922979] (03/22/11) ALTERATION IN SLEEP [619363] (03/23/11) KNOWLEDGE DEFICIT [946020] (04/07/11) NUTRITION [092953] (04/07/11) RISK FOR INFECTION [985442] (04/07/11) GLYCEMIA IMBALANCE [850571] (04/07/11) ANXIETY [783175] (04/09/11) Ineffective Coping [679055] (04/09/11) SELF CARE DEFICIT [467492] (04/09/11) ALTERATION IN MOOD [437558] (04/09/11) Data: Requested repeat dose of Ambien [...] Ongoing Active Multi-Disciplinary problems: ALTERED THOUGHT PROCESSES [033375] (03/22/11) ALTERATION IN SLEEP [341399] (03/23/11) KNOWLEDGE DEFICIT [450120] (04/07/11) NUTRITION [016969] (04/07/11) RISK FOR INFECTION [659512] (04/07/11) GLYCEMIA IMBALANCE [927472] (04/07/11) ANXIETY [610626] (04/09/11) Ineffective Coping [967255] (04/09/11) SELF CARE DEFICIT [967751] (04/09/11) ALTERATION IN MOOD [951459] (04/09/11) Data: Napping at the start of [...] concerns/fears Active Multi-Disciplinary problems: ALTERED THOUGHT PROCESSES [342670] (03/22/11) ALTERATION IN SLEEP [685747] (03/23/11) KNOWLEDGE DEFICIT [772912] (04/07/11) NUTRITION [540381] (04/07/11) RISK FOR INFECTION [121390] (04/07/11) GLYCEMIA IMBALANCE [991371] (04/07/11) ANXIETY [980237] (04/09/11) Ineffective Coping [192621] (04/09/11) SELF CARE DEFICIT [922378] (04/09/11) ALTERATION IN MOOD [741403] (04/09/11) Data: Finger sticks were 173 at [...] Care - Matt Coats RN - 04/12/2011 0646 EST Problem: ALTERATION IN SLEEP Goal: Reports Nightly Sleep, Duration And Quality Outcome: Ongoing Active Multi-Disciplinary problems: ALTERED THOUGHT PROCESSES [557661] (03/22/11) ALTERATION IN SLEEP [553385] (03/23/11) KNOWLEDGE DEFICIT [466661] (04/07/11) NUTRITION [533510] (04/07/11) RISK FOR INFECTION [704504] (04/07/11) GLYCEMIA IMBALANCE [504340] (04/07/11) ANXIETY [020364] (04/09/11) Ineffective Coping [914001] (04/09/11) SELF CARE DEFICIT [617088] (04/09/11) ALTERATION IN MOOD [324220] (04/09/11) Data: Asked for his second dose [...] Care - Meghan Melchor RN - 04/11/2011 7646 EST Problem: NUTRITION Patient unable to self-regulate blood glucose level Goal: Blood Glucose Control Maintain plasma glucose levels within expected range. Outcome: Ongoing Active Multi-Disciplinary problems: ALTERED THOUGHT PROCESSES [093016] (03/22/11) ALTERATION IN SLEEP [534003] (03/23/11) KNOWLEDGE DEFICIT [560279] (04/07/11) NUTRITION [997873] (04/07/11) RISK FOR INFECTION [335463] (04/07/11) GLYCEMIA IMBALANCE [914606] (04/07/11) ANXIETY [814404] (04/09/11) Ineffective Coping [990052] (04/09/11) SELF CARE DEFICIT [647258] (04/09/11) ALTERATION IN MOOD [799517] (04/09/11) Data: Napping at start of shift until about 1710. Complaints of right shoulder pain 10/27; little relief from prn percocet. C/o heartburn I've had heartburn since I ate those sausages this morning; resident head refrigeration engineer notified; new order for pepcid 20 mg [...] Ongoing Active Multi-Disciplinary problems: ALTERED THOUGHT PROCESSES [203957] (03/22/11) ALTERATION IN SLEEP [535790] (03/23/11) KNOWLEDGE DEFICIT [454188] (04/07/11) NUTRITION [565629] (04/07/11) RISK FOR INFECTION [379985] (04/07/11) GLYCEMIA IMBALANCE [187250] (04/07/11) ANXIETY [073021] (04/09/11) Ineffective Coping [752186] (04/09/11) SELF CARE DEFICIT [112183] (04/09/11) ALTERATION IN MOOD [350519] (04/09/11) Data: Pt awake at start of shift and out in milieu. At 0015 pt was observed by staff to be eating ice cream, a cookie, and other snack foods. This expert medical writer spoke with pt about remaining NPO [...] of Care - Rema Whitehead RN - 04/10/20112149 EST Problem: ALTERED THOUGHT PROCESSES Goal: Desires Improvement In Ability To Think & Concentrate Outcome: Ongoing Active Multi-Disciplinary problems: ALTERED THOUGHT PROCESSES [888042] (03/22/11) ALTERATION IN SLEEP [955123] (03/23/11) KNOWLEDGE DEFICIT [718269] (04/07/11) NUTRITION [148220] (04/07/11) RISK FOR INFECTION [368122] (04/07/11) GLYCEMIA IMBALANCE [195405] (04/07/11) ANXIETY [460217] (04/09/11) Ineffective Coping [354688] (04/09/11) SELF CARE DEFICIT [541126] (04/09/11) ALTERATION IN MOOD [924972] (04/09/11) Data: Pt reports his mood is [...] Care - Rema Garcia RN - 04/10/2011 2887 EST Problem: Ineffective Coping Goal: Verbalizes Improved Well Being Outcome: Ongoing Active Multi-Disciplinary problems: ALTERED THOUGHT PROCESSES [481396] (03/22/11) ALTERATION IN SLEEP [862864] (03/23/11) KNOWLEDGE DEFICIT [797691] (04/07/11) NUTRITION [773774] (04/07/11) RISK FOR INFECTION [047934] (04/07/11) GLYCEMIA IMBALANCE [542783] (04/07/11) ANXIETY [155312] (04/09/11) Ineffective Coping [248929] (04/09/11) SELF CARE DEFICIT [056449] (04/09/11) ALTERATION IN MOOD [471399] (04/09/11) Data: Pt denies SI/HI, A/V/H, and states he does have some pain in his shoulder in which he denied the need for medication. Pt was pleasant and engaging in conversation with expert medical writer. Pt discussed his diabetes and how he manages it at home. Pt also discussed the things his used to do to help himwith the diabetes before she . Pt became tearful when talking about her. Pt smiled and was appropriate. Pt was able to laugh and joke at times with expert medical writer. When asked if pt felt less [...] the day. Pt stated this am to expert medical writer that he felt tired and was [...] REMA GARCIA RN 04/10/2011 13:39 * Anesthesia Post-Eval - Yamile Henderson CRNA - 04/10/2011 0857 [...] Ongoing Active Multi-Disciplinary problems: ALTERED THOUGHT PROCESSES [554567] (03/22/11) ALTERATION IN SLEEP [334819] (03/23/11) KNOWLEDGE DEFICIT [123894] (04/07/11) NUTRITION [360845] (04/07/11) RISK FOR INFECTION [927257] (04/07/11) GLYCEMIA IMBALANCE [492552] (04/07/11) ANXIETY [881081] (04/09/11) Ineffective Coping [951327] (04/09/11) SELF CARE DEFICIT [637914] (04/09/11) ALTERATION IN MOOD [576420] (04/09/11) Data: Pt requested and received repeat [...] of Care - Meghan Melchor RN - 04/09/20112118 EST Problem: ALTERED THOUGHT PROCESSES Goal: Desires Improvement In Ability To Think & Concentrate Outcome: Met This Shift Active Multi-Disciplinary problems: ALTERED THOUGHT PROCESSES [743920] (03/22/11) ALTERATION IN SLEEP [518552] (03/23/11) KNOWLEDGE DEFICIT [724226] (04/07/11) NUTRITION [792350] (04/07/11) RISK FOR INFECTION [695059] (04/07/11) GLYCEMIA IMBALANCE [854903] (04/07/11) ANXIETY [500465] (04/09/11) Ineffective Coping [262256] (04/09/11) SELF CARE DEFICIT [583984] (04/09/11) ALTERATION IN MOOD [952105] (04/09/11) Data: Napping at start of shift; [...] Ongoing Active Multi-Disciplinary problems: ALTERED THOUGHT PROCESSES [337972] (03/22/11) ALTERATION IN SLEEP [865111] (03/23/11) KNOWLEDGE DEFICIT [361016] (04/07/11) NUTRITION [312827] (04/07/11) RISK FOR INFECTION [861579] (04/07/11) GLYCEMIA IMBALANCE [925806] (04/07/11) ANXIETY [146807] (04/09/11) Ineffective Coping [536174] (04/09/11) SELF CARE DEFICIT [244719] (04/09/11) ALTERATION IN MOOD [103786] (04/09/11) Data: Was npo for ECT this morning. The maria isabel was inserted by the IVRN. Was escorted to [facility] by the T and was returned to [...] Anesthesia Pre-Eval - Margarita Armendariz CRNA - 04/09/2011937 EST Anesthesia ECT Pre-Evaluation Name: SHAHNAZ SANTIAGO [...] anesthesia pre-operative protocol. MARGARITA ARMENDARIZ CRNA 04/09/2011 Cosigned by Iggy Taylor MD at 04/09/2011 9:43 EST * Anesthesia Pre-Pro - Margarita Armendariz CRNA - 04/09/2011 0932 EST Anesthesia ECT Pre-Evaluation Name: SHAHNAZ SANTIAGO [...] ECT Report - Juwan Walter MD - 04/09/2011913 EST Psychiatry Procedure Note Title of Procedure: [...] Unilateral Dosing Protocol: 0.3 ms Pulse-width Protocol ([facility]) Pulse width: 0.3 msec Frequency: 50 Hz [...] None Plan: cont RUL 3 x week JUWNA WALTER MD 04/09/2011 9:14 * Plan of Care - David Bustillo - 04/09/2011 0651 EST Problem: ALTERATION IN SLEEP Goal: Informs Staff If Unable To Sleep Outcome: Ongoing Active Multi-Disciplinary problems: FALL RISK [315061] (03/22/11) ALTERED THOUGHT PROCESSES [374220] (03/22/11) ALTERATION IN SLEEP [631496] (03/23/11) ANXIETY [174571] (03/24/11) KNOWLEDGE DEFICIT [309170] (04/07/11) NUTRITION [022621] (04/07/11) RISK FOR INFECTION [930228] (04/07/11) GLYCEMIA IMBALANCE [136768] (04/07/11) Data: Pt awake at start of shift and watching television with another pt. Requested and recieved repeat of NANCI Gaona at 2339 but did not take staff [...] the unit. Slept approximately 4.5 hours on power and recovery shift engineer. DAVID BUSTILLO RN 04/09/2011 6:46 * Plan of Care - Meghan Melchor RN - 04/08/20112046 EST Problem: ALTERED THOUGHT PROCESSES Goal: Desires Improvement In Ability To Think & Concentrate Outcome: Ongoing Active Multi-Disciplinary problems: FALL RISK [888926] (03/22/11) ALTERED THOUGHT PROCESSES [236382] (03/22/11) ALTERATION IN SLEEP [016554] (03/23/11) ANXIETY [210838] (03/24/11) KNOWLEDGE DEFICIT [900966] (04/07/11) NUTRITION [836665] (04/07/11) RISK FOR INFECTION [705430] (04/07/11) GLYCEMIA IMBALANCE [587419] (04/07/11) Data: Denies SI/HI. Shoulder pain 10/27; down to 08/27 after prn percocet. Spent majority of this [...] group this evening. Working on art project tonight in activity room with peers. Will continue to monitor. MEGHAN EMLCHOR RN 04/08/2011 20:36 * Plan of Care - Tamika Cordero - 04/08/2011 1440 EST Problem: NUTRITION Patient unable to self-regulate blood glucose level Goal: Blood Glucose Control Maintain plasma glucose levels within expected range. Intervention: Hyperglycemia Management Active Multi-Disciplinary problems: FALL RISK [111601] (03/22/11) ALTERED THOUGHT PROCESSES [838325] (03/22/11) ALTERATION IN SLEEP [330545] (03/23/11) ANXIETY [145758] (03/24/11) KNOWLEDGE DEFICIT [987892] (04/07/11) NUTRITION [383905] (04/07/11) RISK FOR INFECTION [567507] (04/07/11) GLYCEMIA IMBALANCE [689097] (04/07/11) Data: Fingerstick at 0750 was 251 [...] and reasons Active Multi-Disciplinary problems: FALL RISK [491841] (03/22/11) ALTERED THOUGHT PROCESSES [707148] (03/22/11) ALTERATION IN SLEEP [843519] (03/23/11) ANXIETY [429232] (03/24/11) KNOWLEDGE DEFICIT [160492] (04/07/11) NUTRITION [383612] (04/07/11) RISK FOR INFECTION [235983] (04/07/11) GLYCEMIA IMBALANCE [575555] (04/07/11) Data: Patient was awake at the [...] Care - Meghan Melchor RN - 04/07/2011 8468 EST Problem: ALTERED THOUGHT PROCESSES Goal: Desires Improvement In Ability To Think & Concentrate Outcome: Ongoing Active Multi-Disciplinary problems: FALL RISK [038134] (03/22/11) ALTERED THOUGHT PROCESSES [676920] (03/22/11) ALTERATION IN SLEEP [738490] (03/23/11) ANXIETY [287756] (03/24/11) KNOWLEDGE DEFICIT [498854] (04/07/11) NUTRITION [656919] (04/07/11) RISK FOR INFECTION [976138] (04/07/11) GLYCEMIA IMBALANCE [708754] (04/07/11) Data: Denies SI/HI. C/o shoulder pain [...] 04/07/2011 22:38 * Plan of Care - Tamika Cordero - 04/07/2011 1525 EST Problem: GLYCEMIA IMBALANCE Goal: Patient???s Continuum Of Care Needs Are Met Intervention: Encourage participation in diabetes management Active Multi-Disciplinary problems: FALL RISK [538481] (03/22/11) ALTERED THOUGHT PROCESSES [470199] (03/22/11) ALTERATION IN SLEEP [537353] (03/23/11) ANXIETY [269687] (03/24/11) KNOWLEDGE DEFICIT [282051] (04/07/11) NUTRITION [096487] (04/07/11) RISK FOR INFECTION [429125] (04/07/11) GLYCEMIA IMBALANCE [794885] (04/07/11) Data: Was npo for ECT this morning. The maria isabel was inserted by the INRN. Attended a morning group before going for ECT. Was escorted to [facility] by the MHT. After recovery in the [...] inserted by the IVRN. Was escorted to [facility] for ECT by the MHT and returned [...] 22 (04/07/11 1122), SpO2: 98 % (04/07/11 112),Numeric Pain Level (Scale 1-10): 2 (had ache) [...] MONIKA KAMARA MD 04/07/2011 11:22 * Anesthesia Post-Eval - Justice Walsh CRNA - 04/07/2011 1110 EST Post Anesthesia [...] 11:10 * Anesthesia Pre-Eval - Josue Martinez (Anes) - 04/07/2011 1025 EST Anesthesia ECT Pre-Evaluation [...] Unilateral Dosing Protocol: 0.3 ms Pulse-width Protocol ([facility]) Pulse width: 0.3 msec Frequency: 50 Hz [...] of Care - Matt Coats RN - 04/07/2011 0614 EST Problem: ALTERATION IN SLEEP Goal: Reports Nightly Sleep, Duration And Quality Outcome: Ongoing Active Multi-Disciplinary problems: FALL RISK [068269] (03/22/11) ALTERED THOUGHT PROCESSES [145360] (03/22/11) ALTERATION IN SLEEP [338872] (03/23/11) ANXIETY [066489] (03/24/11) Data: Asked for repeat dose of [...] Outcome: Ongoing Active Multi-Disciplinary problems: FALL RISK [163101] (03/22/11) ALTERED THOUGHT PROCESSES [053556] (03/22/11) ALTERATION IN SLEEP [819943] (03/23/11) ANXIETY [667915] (03/24/11) Data: Patient was asleep at onset [...] with others Active Multi-Disciplinary problems: FALL RISK [315648] (03/22/11) ALTERED THOUGHT PROCESSES [395930] (03/22/11) ALTERATION IN SLEEP [382848] (03/23/11) ANXIETY [145264] (03/24/11) Data: The patient has been appropriate [...] on his tray. He went directly to school attendance secretary to resolve the matter as if it [...] Outcome: Ongoing Active Multi-Disciplinary problems: FALL RISK [764143] (03/22/11) ALTERED THOUGHT PROCESSES [406138] (03/22/11) ALTERATION IN SLEEP [226856] (03/23/11) ANXIETY [371269] (03/24/11) Data: Asked for his second dose [...] Outcome: Ongoing Active Multi-Disciplinary problems: FALL RISK [527653] (03/22/11) ALTERED THOUGHT PROCESSES [415059] (03/22/11) ALTERATION IN SLEEP [756696] (03/23/11) ANXIETY [282664] (03/24/11) Data: Patient was resting in bed [...] Care - Ervin Osorio RN - 04/05/2011 0958 EST Problem: ALTERED THOUGHT PROCESSES Goal: Effective communication and interaction with others Outcome: Ongoing Active Multi-Disciplinary problems: FALL RISK [694587] (03/22/11) ALTERED THOUGHT PROCESSES [967071] (03/22/11) ALTERATION IN SLEEP [540798] (03/23/11) ANXIETY [413562] (03/24/11) Data: FS this am 155. Pt [...] Outcome: Ongoing Active Multi-Disciplinary problems: FALL RISK [965283] (03/22/11) ALTERED THOUGHT PROCESSES [442243] (03/22/11) ALTERATION IN SLEEP [922244] (03/23/11) ANXIETY [710607] (03/24/11) Data: Awake at beginning of shift. Used several doses of nicotine inhaler while up. When patient said he could not sleep near the 03:00 mary, the expert medical writer suggested that he go lie down [...] Coats RN 04/05/2011 6:15 * Plan of Cyndie - Christina Torres - 04/04/2011 3274 EST Problem: ALTERED THOUGHT PROCESSES Goal: Effective [...] TORRES RN 04/04/2011 22:23 * Plan of Cyndie - Rema Garcia RN - 04/04/2011 1335 EST Problem: ALTERED THOUGHT PROCESSES Goal: Effective communication and interaction with others Outcome: Ongoing Active Multi-Disciplinary problems: FALL RISK [891384] (03/22/11) ALTERED THOUGHT PROCESSES [095129] (03/22/11) ALTERATION IN SLEEP [565871] (03/23/11) ANXIETY [405073] (03/24/11) Data: Pt denies SI/HI, A/V/H, and pain. Pt is very irritable and dismissive with expert medical writer. Pt denied needing any help and [...] GARCIA RN 04/04/2011 13:30 * Anesthesia Post-Pro Magalie Kee Fischer - 04/04/2011 1003 EST Post [...] (04/04/11944), SpO2: 98 % (04/04/11944), Pulse: 77 (12/16/11 0935),Numeric Pain Level (Scale 1-10): 0 Shahnaz Santiago [...] ECT Report - Juwan Walter MD - 04/04/2011903 EST Psychiatry Procedure Note Title of Procedure: [...] Unilateral Dosing Protocol: 0.3 ms Pulse-width Protocol ([facility]) Pulse width: 0.3 msec Frequency: 50 Hz [...] Care - Abbi Nash RN - 04/04/2011 0645 EST Problem: ALTERATION IN SLEEP Goal: Reports Nightly Sleep, Duration And Quality Intervention: Document duration, quality of sleep and reasons Active Multi-Disciplinary problems: FALL RISK [665054] (03/22/11) ALTERED THOUGHT PROCESSES [973699] (03/22/11) ALTERATION IN SLEEP [618855] (03/23/11) ANXIETY [038874] (03/24/11) Data: De[ressed. Diabetes, ECT Action: Routine [...] of Care - Christina Torres - 04/03/2011 2257 EST Problem: ANXIETY Goal: Verbalizes Ways To [...] & Concentrate Active Multi-Disciplinary problems: FALL RISK [909634] (03/22/11) ALTERED THOUGHT PROCESSES [065252] (03/22/11) ALTERATION IN SLEEP [946460] (03/23/11) ANXIETY [077378] (03/24/11) Data: Patient pleasant upon awakening this AM. Allowed this expert medical writer to administer medications, and take his [...] Novolog with his lunch. Irritable with this expert medical writer around 1200. After visitors left, patient was much more pleasant to interact with. He sat in the day room with this expert medical writer and engaged. He spoke of his [...] self-confidence even as a child. Herecalls the [place] [place] and remembers how sad and scared he was at that time. He wonders whether other children felt the same way, or if he was different. Patient declined the writing for [employer] group this afternoon, even though highly encouraged [...] and reasons Active Multi-Disciplinary problems: FALL RISK [181419] (03/22/11) ALTERED THOUGHT PROCESSES [331063] (03/22/11) ALTERATION IN SLEEP [315337] (03/23/11) ANXIETY [525992] (03/24/11) Data: Pt watching TV on milieu at start of shift. Pt ate multiple snacks before going to bed including peanut butter crackers, mac and cheese, & ice cream. V/s stable. Pt documented asleep @ 0234, out of bed from 6726-4467, no further awakenings noted. Action: Perform routine observations. Monitor v/s, mood & sleep. Supportive interactions. Response: Pt cooperative with this expert medical writer, smiled and joked while having v/s checked. No needs voiced. Pt slept about 4 hours thus far. Abril Sheppard RN 04/03/2011 6:32 * Plan of Care - Loraine Serna RN - 04/02/2011 9487 EST Problem: ALTERATION IN SLEEP Goal: Informs Staff If Unable To Sleep Intervention: Encourage patient to inform staff if awake at rounds Problem: ALTERATION IN SLEEP Goal: Informs Staff If Unable To Sleep Outcome: Ongoing Problem: ANXIETY Goal: Verbalizes Ways To Manage Anxiety Outcome: Ongoing Active Multi-Disciplinary problems: FALL RISK [610132] (03/22/11) ALTERED THOUGHT PROCESSES [341695] (03/22/11) ALTERATION IN SLEEP [551795] (03/23/11) ANXIETY [914330] (03/24/11) Data: Patient watched tv, social with [...] & Concentrate Active Multi-Disciplinary problems: FALL RISK [889467] (03/22/11) ALTERED THOUGHT PROCESSES [801502] (03/22/11) ALTERATION IN SLEEP [892090] (03/23/11) ANXIETY [753479] (03/24/11) Data: Patient slept well last night. [...] lots of sighing when interacting with this expert medical writer. Continues to talk about this situation being unreal. Will not fully engage with this expert medical writer when asked. PRN Ativan 1 mg given [id number] for anxiety. Patient returned to bed after this. Remained asleep for the rest of the shift. Noreports of S/I to this expert medical writer. Action: Attempted to engage with patient, [...] anesthesia pre-operative protocol. Sukhdeep Barcenas CRNA 04/02/2011 Cosigned by Josue Butler MD at 04/16/2011 10:34 EST * ECT Report - Leni Dang MD [...] Unilateral Dosing Protocol: 0.3 ms Pulse-width Protocol ([facility]) Pulse width: 0.3 msec Frequency: 50 Hz [...] and reasons Active Multi-Disciplinary problems: FALL RISK [710939] (03/22/11) ALTERED THOUGHT PROCESSES [749657] (03/22/11) ALTERATION IN SLEEP [366311] (03/23/11) ANXIETY [620102] (03/24/11) Data: Pt documented asleep @ 0034. [...] of Care - Loraine Serna RN - 04/01/20112155 EST Problem: ALTERATION IN SLEEP Goal: Informs Staff If Unable To Sleep Outcome: Ongoing Problem: ANXIETY Goal: Verbalizes Ways To Manage Anxiety Outcome: Ongoing Active Multi-Disciplinary problems: FALL RISK [572754] (03/22/11) ALTERED THOUGHT PROCESSES [337176] (03/22/11) ALTERATION IN SLEEP [564131] (03/23/11) ANXIETY [962366] (03/24/11) Data: Patient watched tv, social with peers, irritable. Patient shrugging his shoulders and sighingwhen talking about ECT, Glucose and anything that pertains to his care. Patient requested pastoral care visit after urgent care physician assistant left this evening with encouragement from urgent care physician assistant and his . Patient's daughter called asking if patient had ECT today. Daughter aware he is having ect tomorrow. States she is having difficulty talking to him because he is so sad and hopeless. Stated she would call him later after his company comes to visit this evening. Patient visited by urgent care physician assistant and urgent care physician assistant's this evening. Action: Assessed for SI/HI and [...] hour after first dose. Loraine Serna RN 04/01/20112199 * Plan of Care - Mely James - 04/01/2011 1327 EST Problem: ALTERED THOUGHT PROCESSES Goal: Effective communication and interaction with others Outcome: Ongoing Active Multi-Disciplinary problems: FALL RISK [745736] (03/22/11) ALTERED THOUGHT PROCESSES [797407] (03/22/11) ALTERATION IN SLEEP [315007] (03/23/11) ANXIETY [937211] (03/24/11) Data: Patient had c/o sedation and [...] and reasons Active Multi-Disciplinary problems: FALL RISK [464302] (03/22/11) ALTERED THOUGHT PROCESSES [263104] (03/22/11) ALTERATION IN SLEEP [292480] (03/23/11) ANXIETY [477997] (03/24/11) Data: Depressed, ECT. Action: Routine observations, [...] Outcome: Ongoing Active Multi-Disciplinary problems: FALL RISK [935056] (03/22/11) ALTERED THOUGHT PROCESSES [164049] (03/22/11) ALTERATION IN SLEEP [238957] (03/23/11) ANXIETY [237945] (03/24/11) Data: Patient watched tv, social with [...] EST Active Multi-Disciplinary problems: ALTERED THOUGHT PROCESSES [169142] (03/22/11) 07-1100 Data: Depression- pt affect is blunted; mood is not great; seems irritated by attempts at interaction by this expert medical writer and is avoidant, appetite is okay; [...] and reasons Active Multi-Disciplinary problems: FALL RISK [875524] (03/22/11) ALTERED THOUGHT PROCESSES [955079] (03/22/11) ALTERATION IN SLEEP [237073] (03/23/11) ANXIETY [852839] (03/24/11) Data: Depression, s/p OD. Depressed, ECT [...] Care - Sherman Pabon RN - 03/30/2011 2224 EST Problem: ALTERED THOUGHT PROCESSES Goal: Desires Improvement In Ability To Think & Concentrate Outcome: Ongoing ALTERED THOUGHT PROCESSES [948930] (03/22/11) Data: Locus of harm level 3. [...] observation. One to one offered. Activity encouraged. [place] encouraged. Ambien given at 2156 per patient [...] 03/29/20112000 EST Active Multi-Disciplinary problems: FALL RISK [242342] (03/22/11) ALTERED THOUGHT PROCESSES [217457] (03/22/11) ALTERATION IN SLEEP [602640] (03/23/11) ANXIETY [139172] (03/24/11) Data: Pt spent time in 325 [...] Care - Arthur Valenzuela RN - 03/29/2011 3616 EST Problem: ALTERED THOUGHT PROCESSES Goal: Effective [...] Plan of Care - Edie Mobley - 03/28/20112121 EST Problem: ANXIETY Goal: Verbalizes Ways To Manage Anxiety Outcome: Ongoing Active Multi-Disciplinary problems: FALL RISK [283412] (03/22/11) ALTERED THOUGHT PROCESSES [087537] (03/22/11) ALTERATION IN SLEEP [612927] (03/23/11) ANXIETY [774041] (03/24/11) Data: Pt was out of his room, in the milieu most of shift. He ate in the milieu and socialized. He rode the exercise bike for a while. He spent time in a group. He stated to this expert medical writer it was a little odd because it was on addiction. He said he has no addiction issues. Pt called his daughter. Pt states he is not getting enough food at his meals. He was distressed at the size of the salads on [employer]. Pt cooperative but somewhat negative. Pt states [...] Care - Meghan Valladares RN - 03/28/2011 1418 EST Problem: ALTERED THOUGHT PROCESSES Goal: Effective [...] Care - Abbi Nash RN - 03/28/2011 0532 EST Problem: ALTERATION IN SLEEP Goal: Reports Nightly Sleep, Duration And Quality Intervention: Document duration, quality of sleep and reasons Active Multi-Disciplinary problems: FALL RISK [749798] (03/22/11) ALTERED THOUGHT PROCESSES [016958] (03/22/11) ALTERATION IN SLEEP [720468] (03/23/11) ANXIETY [165514] (03/24/11) Data: Depression, labile mood. Action: Frequent observations, assessed for s/s pain, sleep, mood. Offered supportive interaction at start of shift. Response: Denies pain or other problems tonight, In a good mood during brief interaction. No irritability seen. Slept through the night after 0000. Abbi Nash RN 03/28/2011 5:29 * Plan of Naty Herman - 03/27/2011 2146 EST Problem: ALTERED THOUGHT PROCESSES Goal: Effective communication and interaction with others Active Multi-Disciplinary problems: FALL RISK [929396] (03/22/11) ALTERED THOUGHT PROCESSES [166579] (03/22/11) ALTERATION IN SLEEP [888487] (03/23/11) ANXIETY [565510] (03/24/11) Data: Pt. Has been calmer this [...] $ resources and lack of planning for snf during his life. Pt. Was encouraged to shower (1 task at a time) which he did. He is easily overwhelmed and has difficulty prioritizing tasks. Gisell. Called and was updated about change in med doses today, as well as pt.'s condition this elaina. Action: 1:1 and freq. Observation. Jimenez prn at HS given. Response: Better elaina. [...] Restraint Events Active Multi-Disciplinary problems: FALL RISK [027721] (03/22/11) ALTERED THOUGHT PROCESSES [925700] (03/22/11) ALTERATION IN SLEEP [217817] (03/23/11) ANXIETY [921286] (03/24/11) Data: Patient was awake this AM, [...] become increasingly agitated. He argued with this expert medical writer about his blood sugar and was demanding to know why his value was so high if he hadn't eaten anything all day. This expert medical writer was unable to explain anything to this patient because he did not allow this expert medical writer to talk. He then slammed the door and told this expert medical writer to leave. Patient fell asleep after this and slept until about 1420. He awoke at this time and ate his lunch. After lunch patient continued to be rude to this expert medical writer. He had told the MHT to screw off! when she offered to help him fill out his menu. He then refused VS from then MHT. This expert medical writer went in and was able to get a set of vitals. Marcella ZAVALA made aware. AM medications gave at 1430 along with PRN Ativan. AM hydrodiuril and corgard help due to blood pressure value (122/86, HR 96). Patient was given 5 units of Novolog for lunch coverage and FS value of 224 at 1451. Patient continued to be irritable with staff. He would not explainwhy he was feeling so awful. He declined this expert medical writer's offer to assist him with ordering [...] right here. He wouldnot elaborate with this expert medical writer about any of his comments. Patient [...] Juana Peña RN 03/27/2011 15:10 * Anesthesia Post-Annieal - Chaz Fofana MD - 03/27/2011 1118 [...] (03/27/11 1016), Heart Rate: 72 BPM (03/27/11 1115), BP: 109/71 mmHg (03/27/11 1115), Resp: 14 (03/27/11 1115), SpO2: 97 % (03/27/11 1115),Numeric Pain Level (Scale 1-10): 0 Shahnaz Santiago [...] Report - Sajan Stanford MD - 03/27/2011 0914 EST Psychiatry Procedure Note Title of Procedure: [...] Unilateral Dosing Protocol: 0.3 ms Pulse-width Protocol ([facility]) Pulse width: 0.3 msec X 2 Frequency: [...] Complications: None Plan: Continue RUL ECT at: 0.3/50/5/800. SAJAN STANFORD MD 03/27/2011 9:55 * Plan of Care - Abbi Nash RN - 03/27/2011 0637 EST Problem: ALTERATION IN SLEEP Goal: Reports Nightly Sleep, Duration And Quality Intervention: Document duration, quality of sleep and reasons Active Multi-Disciplinary problems: FALL RISK [519777] (03/22/11) ALTERED THOUGHT PROCESSES [315261] (03/22/11) ALTERATION IN SLEEP [925087] (03/23/11) ANXIETY [515822] (03/24/11) Data: Diabetes Mellitis, depressed, ECT Action: [...] 1855 EST Active Multi-Disciplinary problems: FALL RISK [125331] (03/22/11) ALTERED THOUGHT PROCESSES [240969] (03/22/11) ALTERATION IN SLEEP [077770] (03/23/11) ANXIETY [882303] (03/24/11) Data: Pt remains dismayed and negative about everything about him. R.N. Visited with pt and tried to find an activity ([employer], [employer] ) with no interest by pt. Ativan 1.0??mg P0 @ 1954 Hs, finger stick of 259. Saline loc placed in l forearm @ 2099. watching T.V. With peers after 2099. Action: offer 1:1 counseling, listen to Concerns, offer Support. NP0 after midnight, no benzos after 2000. ect in the a.m. Response: Seems willing to try ect despite feelings of despair, Dahlia Hernández RN 03/26/2011 18:55 * Plan of Care - Ervin Osorio RN - 03/26/2011 0858 EST Problem: ALTERED THOUGHT PROCESSES Goal: Effective [...] Outcome: Ongoing Active Multi-Disciplinary problems: FALL RISK [662018] (03/22/11) ALTERED THOUGHT PROCESSES [072716] (03/22/11) ALTERATION IN SLEEP [933767] (03/23/11) ANXIETY [717114] (03/24/11) Data: Patient appeared to sleep a [...] Outcome: Ongoing Active Multi-Disciplinary problems: FALL RISK [717862] (03/22/11) ALTERED THOUGHT PROCESSES [444088] (03/22/11) ALTERATION IN SLEEP [896956] (03/23/11) ANXIETY [104543] (03/24/11) Data: Pt using laptop at start [...] of Care - David Bustillo - 03/25/2011 1453 EST Problem: ALTERED THOUGHT PROCESSES Goal: Desires Improvement In Ability To Think & Concentrate Outcome: Ongoing Active Multi-Disciplinary problems: FALL RISK [752585] (03/22/11) ALTERED THOUGHT PROCESSES [123976] (03/22/11) ALTERATION IN SLEEP [910672] (03/23/11) ANXIETY [250052] (03/24/11) Data: Pt has been in a better mood throughout this shift spending a lot of time on the phone and computer. Pt reports good sleep and has eaten well. He is clearer in conversation and noticabely less grumpy. Pt accepted all of his medications and finger sticks. Spoke of his belief that he is bruising too easily and showed this expert medical writer a couple of bruises on his [...] and reasons Active Multi-Disciplinary problems: FALL RISK [979671] (03/22/11) ALTERED THOUGHT PROCESSES [936302] (03/22/11) ALTERATION IN SLEEP [040160] (03/23/11) ANXIETY [598612] (03/24/11) Data: Patient appeared to sleep a total of 8 hours without waking. No s/s of distress or discomfortnoted. Action: Maintained on frequent observation for safety. Response: Patient remained safe this shift. MEGA DELEON RN 03/25/2011 6:21 * Plan of Care - Cinthya Zayas RN - 03/24/2011 3598 EST Problem: ANXIETY Goal: Implements Measures To Reduce Anxiety Outcome: Ongoing Active Multi-Disciplinary problems: FALL RISK [288894] (03/22/11) ALTERED THOUGHT PROCESSES [465198] (03/22/11) ALTERATION IN SLEEP [952427] (03/23/11) ANXIETY [439497] (03/24/11) Data: Was reported that pt was [...] verbally picking up clothing. Negative statements Friends (Pastor Buchanan) visited bringing some belongings in for pt. Taking back items that pt did not need. Action: Administered medication; encouraged groups; redirected conversation from ruminative thoughts; spoke with daughter, re oriented pt to unit ie favors ect. Response: Pt able to function, but remains anxious and ruminative. Cinthya Zayas RN 03/24/2011 23:04 * Plan of Care - Juana Peña - 03/24/2011 1439 EST Problem: ALTERED THOUGHT PROCESSES Goal: Desires Improvement In Ability To Think & Concentrate Active Multi-Disciplinary problems: FALL RISK [257830] (03/22/11) ALTERED THOUGHT PROCESSES [502323] (03/22/11) ALTERATION IN SLEEP [015088] (03/23/11) Data: Patient was much more calm [...] kitchen during lunch. Patient was thankful that Tariq offered him some extra clothing, as he [...] RN 03/24/2011 14:26 * Scanned Note-Null - Drywall Taper, Scan - 03/24/2011 1246 EST * Scanned Note-Null - Drywall Taper, Scan - 03/24/2011 1246 EST * Plan of Care - Matt Coats RN - 03/24/2011 0591 EST Problem: ALTERATION IN SLEEP Goal: Reports Nightly Sleep, Duration And Quality Outcome: Ongoing Active Multi-Disciplinary problems: FALL RISK [009608] (03/22/11) ALTERED THOUGHT PROCESSES [621198] (03/22/11) ALTERATION IN SLEEP [787531] (03/23/11) Data: Asked for an ativan tablet [...] Coats RN 03/24/2011 5:50 * Plan of Care - Juana Peña - 03/23/2011 3657 EST Problem: ALTERED THOUGHT PROCESSES Goal: Desires Improvement In Ability To Think & Concentrate Active Multi-Disciplinary problems: FALL RISK [271306] (03/22/11) ALTERED THOUGHT PROCESSES [801363] (03/22/11) ALTERATION IN SLEEP [690171] (03/23/11) Data: Patient attended pet therapy at the start of the shift. Following this group he retreated to his room and became incredibly anxious and perseverative. He was focused on his clothing and the fact that he only had two outfits available. Patient was unable to listen to this expert medical writer's reasoning atall. He remained in his room until dinner, completely focused on his clothing. Patient did eat in the milieu with encouragement from this expert medical writer. His FS at 1700 was 260, [...] TV until 2244. He reported to this expert medical writer that he would be unable to [...] have a calm, coherent conversation with this expert medical writer. He spoke about things he needs to do in the future to get better. He was a bit more optimistic. He told this expert medical writer of the small community he lives in ([facility]) compared to [place], [place]. FS at [id number]. Patient wanted to eat a sandwich at [...] 03/23/2011 23:01 * Plan of Care - Adryannisha David S - 03/23/2011 1506 EST Problem: ALTERED THOUGHT PROCESSES Goal: Desires Improvement In Ability To Think & Concentrate Outcome: Ongoing Active Multi-Disciplinary problems: FALL RISK [254798] (03/22/11) ALTERED THOUGHT PROCESSES [080793] (03/22/11) ALTERATION IN SLEEP [073849] (03/23/11) Data: Pt was extremely negative during [...] 14:50 * Plan of Care - Matt Cotas RN - 03/23/2011 0632 EST Problem: ALTERATION IN SLEEP Goal: Informs Staff If Unable To Sleep Outcome: Ongoing Active Multi-Disciplinary problems: FALL RISK [757379] (03/22/11) ALTERED THOUGHT PROCESSES [276435] (03/22/11) ALTERATION IN SLEEP [568488] (03/23/11) Data: Patient was awake, anxious, confused [...] Care - Rema Whitehead RN - 03/22/2011 2209 EST Problem: ALTERED THOUGHT PROCESSES Goal: Desires Improvement In Ability To Think & Concentrate Outcome: Ongoing Active Multi-Disciplinary problems: FALL RISK [281735] (03/22/11) ALTERED THOUGHT PROCESSES [214657] (03/22/11) Data: Pt admitted to [facility] at approx dinner time. He agrees [...] at hs 294, oral meds given at . Pt keeps repeating I have not done anything here. And I'm not even really here. over and over. He becomes very frustrated when presented with medications but eventually takes them begrudgingly. EKG done. Spoke with daughter via phone and she tells me that patient's medications were changed at [facility] where Trilafon and Nortryptyline were added and since [facility] visit pt has been increasingly confused and [...] chronically exasperated with health care tx Rema Whitehead RN 03/22/2011 21:56 documented in this encounter Plan [...] 8:39 EST) 05/13/2011 8:39 EST Narrative Transcriptions Drywall Taper, Scan - 05/13/2011 8:39 EST us Scan Drywall Taper PROCEDURE/MINOR SURGICAL ORDE RABLES Final Result * (ABNORMAL) GLUCOSE, GLUCOMETER (05/05/2011 8:03 EST) Glucose, Fingerstick 120(H) 70 - 100 mg/dl [facility] [place] [id number] [facility] Comment:Test Performed by [employer] 05/05/2011 8:03 EST 05/05/2011 8:44 EST us Mary Jauregui MD CHEMISTRY & BLOOD GAS ORDER TEJ Final Result [facility] [address] [place] [address] * (ABNORMAL) GLUCOSE, GLUCOMETER (05/04/2011 21:03 EST) Glucose, Fingerstick 161(H) 70 - 100 mg/dl [facility] [place] ID [id number] [facility] Comment:Test Performed by [facility] 05/04/2011 21:0 3 EST 05/04/2011 21:08 EST us Mary Jauregui MD CHEMISTRY & BLOOD GAS ORDER TEJ Final Result Performing Organization Address [facility] de Phone Number [facility] [address] [place] [address] * (ABNORMAL) GLUCOSE, GLUCOMETER (05/04/2011 17:01 EST) Glucose, Fingerstick 207(H) 70 - 100 mg/dl [facility] [place] ID [id number] [facility] Comment:Test Performed by [employer] 05/04/2011 17:0 1 EST 05/04/2011 17:09 EST us Mary Jauregui MD CHEMISTRY & BLOOD GAS ORDER TEJ Final Result Performing Organization Address [facility] Phone Number [facility] [address] [place] [address] * GLUCOSE, GLUCOMETER (05/04/2011 11:49 EST) Glucose, Fingerstick 70 70 - 100 mg/dl [facility] [place] [id number] [facility] Comment:Test Performed by [employer] 05/04/2011 11:4 9 EST 05/04/2011 11:53 EST us Mary Jauregui MD CHEMISTRY & BLOOD GAS ORDER TEJ Final Result Performing Organization Address [facility] de Phone Number [facility] [address] [place] [address] * (ABNORMAL) GLUCOSE, GLUCOMETER (05/04/2011 8:14 EST) Glucose, Fingerstick 108(H) 70 - 100 mg/dl [facility] [place] ID [id number] [facility] Comment:Test Performed by [employer] [facility] 05/04/2011 8:14 EST 05/04/2011 8:30 EST us Mary Jauregui MD CHEMISTRY & BLOOD GAS ORDER TEJ Final Result Performing Organization Address City/[facility]/ZIP Co de Phone Number [facility] [address] [place] [address] * (ABNORMAL) GLUCOSE, GLUCOMETER (05/03/2011 21:51 EST) Glucose, Fingerstick 176(H) 70 - 100 mg/dl [facility] [place] [id number] [facility] Comment:Test Performed by [employer] [facility] 05/03/2011 21:5 1 EST 05/03/2011 21:56 EST Mary Jauregui MD CHEMISTRY & BLOOD GAS ORDER TEJ Final Result Performing Organization Address [facility] Co de Phone Number [facility] [address] [place] [address] * (ABNORMAL) GLUCOSE, GLUCOMETER (05/03/2011 16:35 EST) Glucose, Fingerstick 154(H) 70 - 100 mg/dl [facility] [place] [id number] [facility] Comment:Test Performed by [employer] [facility] 05/03/2011 16:3 5 EST 05/03/2011 16:43 EST us Mary Jauregui MD CHEMISTRY & BLOOD GAS ORDER TEJ Final Result Performing Organization Address [facility] Co de Phone Number [facility] [address] [place] [address] * GLUCOSE, GLUCOMETER (05/03/2011 11:59 EST) Glucose, Fingerstick 84 70 - 100 mg/dl [facility] [place] [id number] [facility] Comment:Test Performed by [employer] [facility] 05/03/2011 11:5 9 EST 05/03/2011 12:04 EST us Mary Jauregui MD CHEMISTRY & BLOOD GAS ORDER TEJ Final Result Performing Organization Address [facility]/ZIP Co de Phone Number [facility] [address] [place] [address] * GLUCOSE, GLUCOMETER (05/03/2011 8:20 EST) Glucose, Fingerstick 78 70 - 100 mg/dl [facility] [place] ID [id number] [facility] Comment:Test Performed by [employer] [facility] 05/03/2011 8:20 EST 05/03/2011 8:29 EST Mary Jauregui MD CHEMISTRY & BLOOD GAS ORDER TEJ Final Result Performing Organization Address [facility] de Phone Number [facility] [address] [place] [address] * (ABNORMAL) GLUCOSE, GLUCOMETER (05/02/2011 21:13 EST) Glucose, Fingerstick 167(H) 70 - 100 mg/dl [facility] [place] ID [id number] [facility] Comment:Test Performed by [employer] [facility] 05/02/2011 21:1 3 EST 05/02/2011 21:14 EST Mary Jauregui MD CHEMISTRY & BLOOD GAS ORDER TEJ Final Result Performing Organization Address [facility] de Phone Number [facility] [address] [place] [address] * (ABNORMAL) GLUCOSE, GLUCOMETER (05/02/2011 17:25 EST) Glucose, Fingerstick 208(H) 70 - 100 mg/dl [facility] [address] ID [id number] [facility] Comment:Test Performed by [employer] 05/02/2011 17:2 5 EST 05/02/2011 17:27 EST Mary Jauregui MD CHEMISTRY & BLOOD GAS ORDER TEJ Final Result Performing Organization Address [facility] de Phone Number [facility] [address] [place] [address] * (ABNORMAL) GLUCOSE, GLUCOMETER (05/02/2011 11:55 EST) Glucose, Fingerstick 283(H) 70 - 100 mg/dl [facility] [place] [id number] [facility] Comment:Test Performed by [employer] 05/02/2011 11:5 5 EST 05/02/2011 11:57 EST us Mary Jauregui MD CHEMISTRY & BLOOD GAS ORDER TEJ Final Result Performing Organization Address [facility] de Phone Number [facility] [address] [place] [address] * (ABNORMAL) GLUCOSE, GLUCOMETER (05/02/2011 8:30 EST) Glucose, Fingerstick 125(H) 70 - 100 mg/dl [facility] [place] [id number] [facility] Comment:Test Performed by [employer] [facility] 05/02/2011 8:30 EST 05/02/2011 8:33 EST us Mary Jauregui MD CHEMISTRY & BLOOD GAS ORDER TEJ Final Result Performing Organization Address [facility] de Phone Number [facility] [address] [place] [address] * (ABNORMAL) GLUCOSE, GLUCOMETER (05/01/2011 20:51 EST) Glucose, Fingerstick 184(H) 70 - 100 mg/dl [facility] [place] [id number] [facility] Comment:Test Performed by [employer] [facility] 05/01/2011 20:5 1 EST 05/02/2011 8:33 EST us Mary Jauregui MD CHEMISTRY & BLOOD GAS ORDER TEJ Final Result Performing Organization Address [facility] de Phone Number [facility] [address] [place] [address] * (ABNORMAL) GLUCOSE, GLUCOMETER (05/01/2011 16:57 EST) Glucose, Fingerstick 153(H) 70 - 100 mg/dl [facility] [place] [id number] [facility] Comment:Test Performed by [employer] 05/01/2011 16:5 7 EST 05/01/2011 17:10 EST Mary Jauregui MD CHEMISTRY & BLOOD GAS ORDER TEJ Final Result Performing Organization Address [facility] Phone Number [facility] [address] [place] [address] * (ABNORMAL) GLUCOSE, GLUCOMETER (05/01/2011 12:03 EST) Glucose, Fingerstick 124(H) 70 - 100 mg/dl [facility] [place] [id number] [facility] Comment:Test Performed by [employer] [facility] 05/01/2011 12:0 3 EST 05/01/2011 12:10 EST Mary Jauregui MD CHEMISTRY & BLOOD GAS ORDER TEJ Final Result Performing Organization Address [facility] Phone Number [facility] [address] [place] [address] * (ABNORMAL) GLUCOSE, GLUCOMETER (05/01/2011 8:01 EST) Glucose, Fingerstick 124(H) 70 - 100 mg/dl [facility] [place] [id number] [facility] Comment:Test Performed by [employer] [facility] 05/01/2011 8:01 EST 05/01/2011 8:27 EST Mary Jauregui MD CHEMISTRY & BLOOD GAS ORDER TEJ Final Result Performing Organization Address [facility] de Phone Number [facility] [address] [place] [address] * (ABNORMAL) GLUCOSE, GLUCOMETER (04/30/2011 21:04 EST) Glucose, Fingerstick 142(H) 70 - 100 mg/dl [facility] [place] [id number] [facility] Comment:Test Performed by [employer] 04/30/2011 21:0 4 EST 04/30/2011 21:08 EST Mary Jauregui MD CHEMISTRY & BLOOD GAS ORDER TEJ Final Result Performing Organization Address [facility] Co de Phone Number [facility] [address] [place] [address] * (ABNORMAL) GLUCOSE, GLUCOMETER (04/30/2011 16:55 EST) Glucose, Fingerstick 155(H) 70 - 100 mg/dl [facility] [place] [id number] [facility] Comment:Test Performed by [employer] 04/30/2011 16:5 5 EST 04/30/2011 16:57 EST us Mary Jauregui MD CHEMISTRY & BLOOD GAS ORDER TEJ Final Result Performing Organization Address [facility] de Phone Number [facility] [address] [place] [address] * (ABNORMAL) GLUCOSE, GLUCOMETER (04/30/2011 12:22 EST) Glucose, Fingerstick 169(H) 70 - 100 mg/dl [facility] [place] [id number] [facility] Comment:Test Performed by [employer] 04/30/2011 12:2 2 EST 04/30/2011 12:24 EST us Mary Jauregui MD CHEMISTRY & BLOOD GAS ORDER TEJ Final Result Performing Organization Address [facility] de Phone Number [facility] [address] [place] [address] * (ABNORMAL) GLUCOSE, GLUCOMETER (04/30/2011 8:32 EST) Glucose, Fingerstick 105(H) 70 - 100 mg/dl [facility] [place] [id number] [facility] Comment:Test Performed by [employer] 04/30/2011 8:32 EST 04/30/2011 8:53 EST us Mary Jauregui MD CHEMISTRY & BLOOD GAS ORDER TEJ Final Result Performing Organization Address [facility]/ZIP Co de Phone Number [facility] [address] [place] [address] * (ABNORMAL) GLUCOSE, GLUCOMETER (04/29/2011 21:03 EST) Glucose, Fingerstick 206(H) 70 - 100 mg/dl [facility] [place] [id number] [facility] Comment:Test Performed by [employer] 04/29/2011 21:0 3 EST 04/29/2011 21:04 EST us Mary Jauregui MD CHEMISTRY & BLOOD GAS ORDER TEJ Final Result Performing Organization Address [facility] Co de Phone Number [facility] [address] [place] [address] * (ABNORMAL) GLUCOSE, GLUCOMETER (04/29/2011 16:46 EST) Glucose, Fingerstick 237(H) 70 - 100 mg/dl [facility] [place] ID [id number] [facility] Comment:Test Performed by [employer] 04/29/2011 16:4 6 EST 04/29/2011 16:48 EST us Mary Jauregui MD CHEMISTRY & BLOOD GAS ORDER TEJ Final Result Performing Organization Address [facility] Co de Phone Number [facility] [address] [place] [address] * GLUCOSE, GLUCOMETER (04/29/2011 11:52 EST) Glucose, Fingerstick 89 70 - 100 mg/dl [facility] [place] [id number] [facility] Comment:Test Performed by [employer] 04/29/2011 11:5 2 EST 04/29/2011 11:57 EST us Mary Jauregui MD CHEMISTRY & BLOOD GAS ORDER TEJ Final Result Performing Organization Address [facility] Co de Phone Number [facility] [address] [place] [address] * (ABNORMAL) GLUCOSE, GLUCOMETER (04/29/2011 8:14 EST) Glucose, Fingerstick 101(H) 70 - 100 mg/dl [facility] [place] ID [id number] [facility] Comment:Test Performed by [employer] 04/29/2011 8:14 EST 04/29/2011 8:37 EST us Mary Jauregui MD CHEMISTRY & BLOOD GAS ORDER TEJ Final Result Performing Organization Address [facility] de Phone Number [facility] [address] [place] [address] * (ABNORMAL) GLUCOSE, GLUCOMETER (04/28/2011 20:59 EST) Glucose, Fingerstick 151(H) 70 - 100 mg/dl [facility] [place] ID [id number] [facility] Comment:Test Performed by [employer] 04/28/2011 20:5 9 EST 04/28/2011 21:01 EST us Mary Jauregui MD CHEMISTRY & BLOOD GAS ORDER TEJ Final Result Performing Organization Address [facility] de Phone Number [facility] [address] [place] [address] * (ABNORMAL) GLUCOSE, GLUCOMETER (04/28/2011 17:05 EST) Glucose, Fingerstick 143(H) 70 - 100 mg/dl [facility] [place] [id number] [facility] Comment:Test Performed by [employer] 04/28/2011 17:0 5 EST 04/28/2011 17:08 EST Mary Jauregui MD CHEMISTRY & BLOOD GAS ORDER TEJ Final Result Performing Organization Address [facility] de Phone Number [facility] [address] [place] [address] * (ABNORMAL) GLUCOSE, GLUCOMETER (04/28/2011 12:21 EST) Glucose, Fingerstick 250(H) 70 - 100 mg/dl [facility] [place] ID [id number] [facility] Comment:Test Performed by [employer] 04/28/2011 12:2 1 EST 04/28/2011 12:25 EST Mary Jauregui MD CHEMISTRY & BLOOD GAS ORDER TEJ Final Result Performing Organization Address [facility] Phone Number [facility] [address] [place] [address] * (ABNORMAL) GLUCOSE, GLUCOMETER (04/28/2011 7:45 EST) Glucose, Fingerstick 110(H) 70 - 100 mg/dl [facility] [place] ID [id number] [facility] Comment:Test Performed by [employer] 04/28/2011 7:45 EST 04/28/2011 7:48 EST Mary Jauregui MD CHEMISTRY & BLOOD GAS ORDER TEJ Final Result Performing Organization Address [facility] Phone Number [facility] [address] [place] [address] * (ABNORMAL) GLUCOSE, GLUCOMETER (04/27/2011 20:52 EST) Glucose, Fingerstick 256(H) 70 - 100 mg/dl [facility] [place] [id number] [facility] Comment:Test Performed by [employer] 04/27/2011 20:5 2 EST 04/27/2011 20:55 EST Mary Jauregui MD CHEMISTRY & BLOOD GAS ORDER TEJ Final Result Performing Organization Address [facility] de Phone Number [facility] [address] [place] [address] * (ABNORMAL) GLUCOSE, GLUCOMETER (04/27/2011 16:59 EST) Glucose, Fingerstick 214(H) 70 - 100 mg/dl [facility] [place] ID [id number] [facility] Comment:Test Performed by [employer] 04/27/2011 16:5 9 EST 04/27/2011 17:02 EST us Mary Jauregui MD CHEMISTRY & BLOOD GAS ORDER TEJ Final Result Performing Organization Address [facility] de Phone Number [facility] [address] [place] [address] * (ABNORMAL) GLUCOSE, GLUCOMETER (04/27/2011 11:53 EST) Glucose, Fingerstick 66(L) 70 - 100 mg/dl [facility] [place] ID [id number] [facility] Comment:Test Performed by [employer] 04/27/2011 11:5 3 EST 04/27/2011 11:55 EST us Mary Jauregui MD CHEMISTRY & BLOOD GAS ORDER TEJ Final Result Performing Organization Address [facility] de Phone Number [facility] [address] [place] [address] * (ABNORMAL) GLUCOSE, GLUCOMETER (04/27/2011 7:51 EST) Glucose, Fingerstick 209(H) 70 - 100 mg/dl [facility] [place] [id number] [facility] Comment:Test Performed by [employer] 04/27/2011 7:51 EST 04/27/2011 7:54 EST us Mary Jauregui MD CHEMISTRY & BLOOD GAS ORDER TEJ Final Result Performing Organization Address [facility] Co de Phone Number [facility] [address] [place] [address] * (ABNORMAL) GLUCOSE, GLUCOMETER (04/26/2011 21:57 EST) Glucose, Fingerstick 180(H) 70 - 100 mg/dl [facility] [place] ID [id number] [facility] Comment:Test Performed by [employer] 04/26/2011 21:5 7 EST 04/26/2011 22:00 EST us Mary Jauregui MD CHEMISTRY & BLOOD GAS ORDER TEJ Final Result Performing Organization Address [facility]ZIP Co de Phone Number [facility] [address] [place] [address] * (ABNORMAL) GLUCOSE, GLUCOMETER (04/26/2011 16:54 EST) Glucose, Fingerstick 129(H) 70 - 100 mg/dl [facility] [place] ID [id number] [facility] Comment:Test Performed by [employer] 04/26/2011 16:5 4 EST 04/26/2011 16:55 EST us Mary Jauregui MD CHEMISTRY & BLOOD GAS ORDER TEJ Final Result Performing Organization Address [facility] de Phone Number [facility] [address] [place] [address] * (ABNORMAL) GLUCOSE, GLUCOMETER (04/26/2011 11:53 EST) Glucose, Fingerstick 140(H) 70 - 100 mg/dl [facility] [place] [id number] [facility] Comment:Test Performed by [employer] 04/26/2011 11:5 3 EST 04/26/2011 11:56 EST us Mary Jauregui MD CHEMISTRY & BLOOD GAS ORDER TEJ Final Result Performing Organization Address [facility] Co de Phone Number [facility] [address] [place] [address] * (ABNORMAL) GLUCOSE, GLUCOMETER (04/26/2011 7:54 EST) Glucose, Fingerstick 118(H) 70 - 100 mg/dl [facility] [place] [id number] [facility] Comment:Test Performed by [employer] 04/26/2011 7:54 EST 04/26/2011 7:59 EST us Mary Jauregui MD CHEMISTRY & BLOOD GAS ORDER TEJ Final Result Performing Organization Address [facility] Co de Phone Number [facility] [address] [place] [address] * (ABNORMAL) GLUCOSE, GLUCOMETER (04/25/2011 20:51 EST) Glucose, Fingerstick 188(H) 70 - 100 mg/dl [facility] [place] [id number] [facility] Comment:Test Performed by [employer] 04/25/2011 20:5 1 EST 04/25/2011 20:53 EST us Mary Jauregui MD CHEMISTRY & BLOOD GAS ORDER TEJ Final Result Performing Organization Address [facility] Co de Phone Number [facility] [address] [place] [address] * (ABNORMAL) GLUCOSE, GLUCOMETER (04/25/2011 17:05 EST) Glucose, Fingerstick 240(H) 70 - 100 mg/dl [facility] [place] [id number] [facility] Comment:Test Performed by [employer] 04/25/2011 17:0 5 EST 04/25/2011 17:08 EST us Mary Jauregui MD CHEMISTRY & BLOOD GAS ORDER TEJ Final Result Performing Organization Address [facility] de Phone Number [facility] [address] [place] [address] * (ABNORMAL) GLUCOSE, GLUCOMETER (04/25/2011 13:22 EST) Glucose, Fingerstick 136(H) 70 - 100 mg/dl [facility] [place] [id number] [facility] Comment:Test Performed by [employer] 04/25/2011 13:2 2 EST 04/25/2011 13:24 EST Mary Jauregui MD CHEMISTRY & BLOOD GAS ORDER TEJ Final Result Performing Organization Address [facility] de Phone Number [facility] [address] [place] [address] * GLUCOSE, GLUCOMETER (04/25/2011 8:19 EST) Glucose, Fingerstick 96 70 - 100 mg/dl [facility] [place] [id number] [facility] Comment:Test Performed by [employer] 04/25/2011 8:19 EST 04/25/2011 8:22 EST Mary Jauregui MD CHEMISTRY & BLOOD GAS ORDER TEJ Final Result Performing Organization Address [facility] de Phone Number [facility] [address] [place] [address] * (ABNORMAL) GLUCOSE, GLUCOMETER (04/24/2011 20:52 EST) Glucose, Fingerstick 283(H) 70 - 100 mg/dl [facility] [place] [id number] [facility] Comment:Test Performed by [employer] 04/24/2011 20:5 2 EST 04/24/2011 20:55 EST us Mary Jauregui MD CHEMISTRY & BLOOD GAS ORDER TEJ Final Result Performing Organization Address [facility] de Phone Number [facility] [address] [place] [address] * (ABNORMAL) GLUCOSE, GLUCOMETER (04/24/2011 17:17 EST) Glucose, Fingerstick 189(H) 70 - 100 mg/dl [facility] [place] [id number] [facility] Comment:Test Performed by [employer] 04/24/2011 17:1 7 EST 04/24/2011 17:21 EST us Mary Jauregui MD CHEMISTRY & BLOOD GAS ORDER TEJ Final Result Performing Organization Address [facility] Co de Phone Number [facility] [address] [place] [address] * GLUCOSE, GLUCOMETER (04/24/2011 11:52 EST) Glucose, Fingerstick 100 70 - 100 mg/dl [facility] [place] [id number] [facility] Comment:Test Performed by [employer] 04/24/2011 11:5 2 EST 04/24/2011 11:55 EST us Mary Jauregui MD CHEMISTRY & BLOOD GAS ORDER TEJ Final Result Performing Organization Address [facility] de Phone Number [facility] [address] [place] [address] * (ABNORMAL) GLUCOSE, GLUCOMETER (04/24/2011 8:13 EST) Glucose, Fingerstick 126(H) 70 - 100 mg/dl [facility] [place] [id number] [facility] Comment:Test Performed by [employer] 04/24/2011 8:13 EST 04/24/2011 8:16 EST us Mary Jauregui MD CHEMISTRY & BLOOD GAS ORDER TEJ Final Result Performing Organization Address [facility] Phone Number [facility] [address] [place] [address] * (ABNORMAL) GLUCOSE, GLUCOMETER (04/23/2011 20:54 EST) Glucose, Fingerstick 248(H) 70 - 100 mg/dl [facility] [place] [id number] [facility] Comment:Test Performed by [employer] 04/23/2011 20:5 4 EST 04/23/2011 20:57 EST us Mray Jauregui MD CHEMISTRY & BLOOD GAS ORDER TEJ Final Result Performing Organization Address [facility] de Phone Number [facility] [address] [place] [address] * (ABNORMAL) GLUCOSE, GLUCOMETER (04/23/2011 17:17 EST) Glucose, Fingerstick 174(H) 70 - 100 mg/dl [facility] [place] [id number] [facility] Comment:Test Performed by [employer] 04/23/2011 17:1 7 EST 04/23/2011 17:19 EST us Mary Jauregui MD CHEMISTRY & BLOOD GAS ORDER TEJ Final Result Performing Organization Address [facility]/ZIP Co de Phone Number [facility] [address] [place] [address] * (ABNORMAL) GLUCOSE, GLUCOMETER (04/23/2011 12:08 EST) Glucose, Fingerstick 230(H) 70 - 100 mg/dl [facility] [place] [id number] [facility] Comment:Test Performed by [employer] 04/23/2011 12:0 8 EST 04/23/2011 12:09 EST us Mray Jauregui MD CHEMISTRY & BLOOD GAS ORDER TEJ Final Result Performing Organization Address [facility] de Phone Number [facility] [address] [place] [address] * (ABNORMAL) GLUCOSE, GLUCOMETER (04/23/2011 9:26 EST) Glucose, Fingerstick 161(H) 70 - 100 mg/dl [facility] [place] [id number] [facility] Comment:Test Performed by [employer] 04/23/2011 9:26 EST 04/23/2011 9:27 EST us Mary Jauregui MD CHEMISTRY & BLOOD GAS ORDER TEJ Final Result Performing Organization Address [facility] de Phone Number [facility] [address] [place] [address] * (ABNORMAL) GLUCOSE, GLUCOMETER (04/23/2011 8:19 EST) Glucose, Fingerstick 132(H) 70 - 100 mg/dl [facility] [place] [id number] [facility] Comment:Test Performed by [employer] 04/23/2011 8:19 EST 04/23/2011 8:24 EST us Mary Jauregui MD CHEMISTRY & BLOOD GAS ORDER TEJ Final Result Performing Organization Address [facility] Co de Phone Number [facility] [address] [place] [address] * (ABNORMAL) GLUCOSE, GLUCOMETER (04/22/2011 20:51 EST) Glucose, Fingerstick 238(H) 70 - 100 mg/dl [facility] [place] [id number] [facility] Comment:Test Performed by [employer] 04/22/2011 20:5 1 EST 04/22/2011 20:53 EST us Mary Jauregui MD CHEMISTRY & BLOOD GAS ORDER TEJ Final Result Performing Organization Address [facility] Co de Phone Number [facility] [address] [place] [address] * (ABNORMAL) GLUCOSE, GLUCOMETER (04/22/2011 16:57 EST) Glucose, Fingerstick 180(H) 70 - 100 mg/dl [facility] [place] [id number] [facility] Comment:Test Performed by [employer] 04/22/2011 16:5 7 EST 04/22/2011 17:06 EST us Mary Jauregui MD CHEMISTRY & BLOOD GAS ORDER TEJ Final Result Performing Organization Address [facility] de Phone Number [facility] [address] [place] [address] * (ABNORMAL) GLUCOSE, GLUCOMETER (04/22/2011 11:48 EST) Glucose, Fingerstick 158(H) 70 - 100 mg/dl [facility] [place] ID [id number] [facility] Comment:Test Performed by [employer]sing [employer] 04/22/2011 11:4 8 EST 04/22/2011 11:50 EST us Mary Jauregui MD CHEMISTRY & BLOOD GAS ORDER TEJ Final Result Performing Organization Address [facility] de Phone Number [facility] [address] [place] [address] * (ABNORMAL) GLUCOSE, GLUCOMETER (04/22/2011 8:02 EST) Glucose, Fingerstick 138(H) 70 - 100 mg/dl [facility] [place] ID [id number] [facility] Comment:Test Performed by [employer] 04/22/2011 8:02 EST 04/22/2011 8:46 EST us Mary Jauregui MD CHEMISTRY & BLOOD GAS ORDER TEJ Final Result Performing Organization Address [facility] de Phone Number [facility] [address] [place] [address] * (ABNORMAL) GLUCOSE, GLUCOMETER (04/21/2011 21:02 EST) Glucose, Fingerstick 256(H) 70 - 100 mg/dl [facility] [place] [id number] [facility] Comment:Test Performed by [employer] 04/21/2011 21:0 2 EST 04/21/2011 21:05 EST us Mary Jauregui MD CHEMISTRY & BLOOD GAS ORDER TEJ Final Result Performing Organization Address [facility] de Phone Number [facility] [address] [place] [address] * (ABNORMAL) GLUCOSE, GLUCOMETER (04/21/2011 17:25 EST) Glucose, Fingerstick 175(H) 70 - 100 mg/dl [facility] [place] [id number] [facility] Comment:Test Performed by [employer] 04/21/2011 17:2 5 EST 04/21/2011 17:27 EST Mary Jauregui MD CHEMISTRY & BLOOD GAS ORDER TEJ Final Result Performing Organization Address [facility] de Phone Number [facility] [address] [place] [address] * (ABNORMAL) GLUCOSE, GLUCOMETER (04/21/2011 12:17 EST) Glucose, Fingerstick 127(H) 70 - 100 mg/dl [facility] [place] ID [id number] [facility] Comment:Test Performed by [employer] 04/21/2011 12:1 7 EST 04/21/2011 12:25 EST Mary Jauregui MD CHEMISTRY & BLOOD GAS ORDER TEJ Final Result Performing Organization Address [facility] Phone Number [facility] [address] [place] [address] * (ABNORMAL) GLUCOSE, GLUCOMETER (04/21/2011 8:19 EST) Glucose, Fingerstick 137(H) 70 - 100 mg/dl [facility] [place] [id number] [facility] Comment:Test Performed by [employer] 04/21/2011 8:19 EST 04/21/2011 8:23 EST us Mary Jauregui MD CHEMISTRY & BLOOD GAS ORDER TEJ Final Result Performing Organization Address [facility] Phone Number [facility] [address] [place] [address] * (ABNORMAL) GLUCOSE, GLUCOMETER (04/20/2011 21:18 EST) Glucose, Fingerstick 215(H) 70 - 100 mg/dl [facility] [place] [id number] [facility] Comment:Test Performed by [employer] 04/20/2011 21:1 8 EST 04/20/2011 21:22 EST Mary Jauregui MD CHEMISTRY & BLOOD GAS ORDER TEJ Final Result Performing Organization Address [facility] de Phone Number [facility] [address] [place] [address] * (ABNORMAL) GLUCOSE, GLUCOMETER (04/20/2011 16:52 EST) Glucose, Fingerstick 168(H) 70 - 100 mg/dl [facility] [place] ID [id number] [facility] Comment:Test Performed by [employer] 04/20/2011 16:5 2 EST 04/20/2011 16:55 EST us Mary Jauregui MD CHEMISTRY & BLOOD GAS ORDER TEJ Final Result Performing Organization Address [facility] Phone Number [facility] [address] [place] [address] * (ABNORMAL) GLUCOSE, GLUCOMETER (04/20/2011 11:53 EST) Glucose, Fingerstick 106(H) 70 - 100 mg/dl [facility] [place] [id number] [facility] Comment:Test Performed by [employer] 04/20/2011 11:5 3 EST 04/20/2011 11:55 EST us Mary Jauregui MD CHEMISTRY & BLOOD GAS ORDER TEJ Final Result Performing Organization Address [facility] de Phone Number [facility] [address] [place] [address] * (ABNORMAL) GLUCOSE, GLUCOMETER (04/20/2011 7:54 EST) Glucose, Fingerstick 174(H) 70 - 100 mg/dl [facility] [place] [id number] [facility] Comment:Test Performed by [employer] 04/20/2011 7:54 EST 04/20/2011 7:57 EST us Mary Jauregui MD CHEMISTRY & BLOOD GAS ORDER TEJ Final Result Performing Organization Address [facility] Phone Number [facility] [address] [place] [address] * (ABNORMAL) GLUCOSE, GLUCOMETER (04/19/2011 20:52 EST) Glucose, Fingerstick 191(H) 70 - 100 mg/dl [facility] [place] [id number] [facility] Comment:Test Performed by [employer] 04/19/2011 20:5 2 EST 04/19/2011 20:54 EST us Mary Jauregui MD CHEMISTRY & BLOOD GAS ORDER TEJ Final Result Performing Organization Address [facility]/State/ZIP Co de Phone Number [facility] [address] [place] [address] * (ABNORMAL) GLUCOSE, GLUCOMETER (04/19/2011 16:48 EST) Glucose, Fingerstick 240(H) 70 - 100 mg/dl [facility] [address] [id number] [facility] Comment:Test Performed by [employer] 04/19/2011 16:4 8 EST 04/19/2011 16:53 EST us Mary Jauregui MD CHEMISTRY & BLOOD GAS ORDER TEJ Final Result Performing Organization Address [facility] Co de Phone Number [facility] [address] [place] [address] * (ABNORMAL) GLUCOSE, GLUCOMETER (04/19/2011 12:05 EST) Glucose, Fingerstick 114(H) 70 - 100 mg/dl [facility] [place] [id number] [facility] Comment:Test Performed by [employer] 04/19/2011 12:0 5 EST 04/19/2011 12:08 EST us Mary Jauregui MD CHEMISTRY & BLOOD GAS ORDER TEJ Final Result Performing Organization Address [facility] Co de Phone Number [facility] [address] [place] [address] * (ABNORMAL) GLUCOSE, GLUCOMETER (04/19/2011 8:15 EST) Glucose, Fingerstick 141(H) 70 - 100 mg/dl [facility] [place] ID [id number] [facility] Comment:Test Performed by [employer] 04/19/2011 8:15 EST 04/19/2011 8:26 EST us Mary Jauregui MD CHEMISTRY & BLOOD GAS ORDER TEJ Final Result Performing Organization Address [facility] Co de Phone Number [facility] [address] [place] [address] * (ABNORMAL) GLUCOSE, GLUCOMETER (04/18/2011 21:23 EST) Glucose, Fingerstick 147(H) 70 - 100 mg/dl [facility] [place] [id number] [facility] Comment:Test Performed by [employer] 04/18/2011 21:2 3 EST 04/18/2011 21:28 EST us Mary Jauregui MD CHEMISTRY & BLOOD GAS ORDER TEJ Final Result Performing Organization Address [facility] de Phone Number [facility] [address] [place] [address] * (ABNORMAL) GLUCOSE, GLUCOMETER (04/18/2011 16:51 EST) Glucose, Fingerstick 191(H) 70 - 100 mg/dl [facility] [place] [id number] [facility] Comment:Test Performed by [employer] 04/18/2011 16:5 1 EST 04/18/2011 16:59 EST us Mary Jauregui MD CHEMISTRY & BLOOD GAS ORDER TEJ Final Result Performing Organization Address [facility] de Phone Number [facility] [address] [place] [address] * GLUCOSE, GLUCOMETER (04/18/2011 13:34 EST) Glucose, Fingerstick 88 70 - 100 mg/dl [facility] [place] [id number] [facility] Comment:Test Performed by [employer] 04/18/2011 13:3 4 EST 04/18/2011 13:36 EST us Mary Jauregui MD CHEMISTRY & BLOOD GAS ORDER TEJ Final Result Performing Organization Address [facility] de Phone Number [facility] [address] [place] [address] * (ABNORMAL) GLUCOSE, GLUCOMETER (04/18/2011 8:01 EST) Glucose, Fingerstick 132(H) 70 - 100 mg/dl [facility] [place] [id number] [facility] Comment:Test Performed by [employer] 04/18/2011 8:01 EST 04/18/2011 8:07 EST us Mary Jauregui MD CHEMISTRY & BLOOD GAS ORDER TEJ Final Result Performing Organization Address [facility] de Phone Number [facility] [address] [place] [address] * (ABNORMAL) GLUCOSE, GLUCOMETER (04/17/2011 21:48 EST) Glucose, Fingerstick 214(H) 70 - 100 mg/dl [facility] [place] [id number] [facility] Comment:Test Performed by [employer] 04/17/2011 21:4 8 EST 04/17/2011 21:51 EST us Mary Jauregui MD CHEMISTRY & BLOOD GAS ORDER TEJ Final Result Performing Organization Address [facility] de Phone Number [facility] [address] [place] [address] * (ABNORMAL) GLUCOSE, GLUCOMETER (04/17/2011 17:05 EST) Glucose, Fingerstick 227(H) 70 - 100 mg/dl [facility] [place] ID [id number] [facility] Comment:Test Performed by [employer] 04/17/2011 17:0 5 EST 04/17/2011 17:06 EST us Mary Jauregui MD CHEMISTRY & BLOOD GAS ORDER TEJ Final Result Performing Organization Address [facility] de Phone Number [facility] [address] [place] [address] * (ABNORMAL) GLUCOSE, GLUCOMETER (04/17/2011 12:14 EST) Glucose, Fingerstick 166(H) 70 - 100 mg/dl [facility] [place] [id number] [facility] Comment:Test Performed by [employer] 04/17/2011 12:1 4 EST 04/17/2011 12:16 EST us Mary Jauregui MD CHEMISTRY & BLOOD GAS ORDER TEJ Final Result Performing Organization Address [facility] Co de Phone Number [facility] [address] [place] [address] * (ABNORMAL) GLUCOSE, GLUCOMETER (04/17/2011 8:19 EST) Glucose, Fingerstick 214(H) 70 - 100 mg/dl [facility] [place] [id number] [facility] Comment:Test Performed by [employer] 04/17/2011 8:19 EST 04/17/2011 8:20 EST us Mary Jauregui MD CHEMISTRY & BLOOD GAS ORDER TEJ Final Result Performing Organization Address [facility] de Phone Number [facility] [address] [place] [address] * (ABNORMAL) GLUCOSE, GLUCOMETER (04/16/2011 20:39 EST) Glucose, Fingerstick 257(H) 70 - 100 mg/dl [facility] [place] ID [id number] [facility] Comment:Test Performed by [employer] 04/16/2011 20:3 9 EST 04/16/2011 20:44 EST us Mary Jauregui MD CHEMISTRY & BLOOD GAS ORDER TEJ Final Result Performing Organization Address [facility] de Phone Number [facility] [address] [place] [address] * (ABNORMAL) GLUCOSE, GLUCOMETER (04/16/2011 17:32 EST) Glucose, Fingerstick 184(H) 70 - 100 mg/dl [facility] [place] ID [id number] [facility] Comment:Test Performed by [employer] 04/16/2011 17:3 2 EST 04/16/2011 17:34 EST us Mary Jauregui MD CHEMISTRY & BLOOD GAS ORDER TEJ Final Result Performing Organization Address [facility]/ZIP Co de Phone Number [facility] [address] [place] [address] * (ABNORMAL) GLUCOSE, GLUCOMETER (04/16/2011 11:05 EST) Glucose, Fingerstick 240(H) 70 - 100 mg/dl [facility] [place] [id number] [facility] Comment:Test Performed by [employer] 04/16/2011 11:0 5 EST 04/16/2011 11:07 EST us Mary Jauregui MD CHEMISTRY & BLOOD GAS ORDER TEJ Final Result Performing Organization Address [facility] de Phone Number [facility] [address] [place] [address] * (ABNORMAL) GLUCOSE, GLUCOMETER (04/16/2011 8:05 EST) Glucose, Fingerstick 147(H) 70 - 100 mg/dl [facility] [place] ID [id number] [facility] Comment:Test Performed by [employer] 04/16/2011 8:05 EST 04/16/2011 8:09 EST us Mary Jauregui MD CHEMISTRY & BLOOD GAS ORDER TEJ Final Result Performing Organization Address [facility] de Phone Number [facility] [address] [place] [address] * (ABNORMAL) GLUCOSE, GLUCOMETER (04/15/2011 21:17 EST) Glucose, Fingerstick 149(H) 70 - 100 mg/dl [facility] [place] ID [id number] [facility] Comment:Test Performed by [employer] 04/15/2011 21:1 7 EST 04/15/2011 21:20 EST us Mary Jauregui MD CHEMISTRY & BLOOD GAS ORDER TEJ Final Result Performing Organization Address [facility] Co de Phone Number [facility] [address] [place] [address] * (ABNORMAL) GLUCOSE, GLUCOMETER (04/15/2011 16:52 EST) Glucose, Fingerstick 235(H) 70 - 100 mg/dl [facility] [place] [id number] [facility] Comment:Test Performed by [employer] 04/15/2011 16:5 2 EST 04/15/2011 16:54 EST us Mary Jauregui MD CHEMISTRY & BLOOD GAS ORDER TEJ Final Result Performing Organization Address [facility] Co de Phone Number [facility] [address] [place] [address] * (ABNORMAL) GLUCOSE, GLUCOMETER (04/15/2011 11:47 EST) Glucose, Fingerstick 169(H) 70 - 100 mg/dl [facility] [place] ID [id number] [facility] Comment:Test Performed by rsing Services 04/15/2011 11:4 7 EST 04/15/2011 11:49 EST us Mary Jauregui MD CHEMISTRY & BLOOD GAS ORDER TEJ Final Result Performing Organization Address [facility] Co de Phone Number [facility] [address] [place] [address] * (ABNORMAL) GLUCOSE, GLUCOMETER (04/15/2011 7:42 EST) Glucose, Fingerstick 212(H) 70 - 100 mg/dl [facility] [place] ID [id number] [facility] Comment:Test Performed by rsing [employer] 04/15/2011 7:42 EST 04/15/2011 7:46 EST us Mary Jauregui MD CHEMISTRY & BLOOD GAS ORDER TEJ Final Result Performing Organization Address [facility] Co de Phone Number [facility] [address] [place] [address] * (ABNORMAL) GLUCOSE, GLUCOMETER (04/15/2011 2:06 EST) Glucose, Fingerstick 108(H) 70 - 100 mg/dl [facility] [place] [id number] [facility] Comment:Test Performed by [employer] 04/15/2011 2:06 EST 04/15/2011 6:18 EST us Mary Jauregui MD CHEMISTRY & BLOOD GAS ORDER TEJ Final Result Performing Organization Address [facility] Phone Number [facility] [address] [place] [address] * (ABNORMAL) GLUCOSE, GLUCOMETER (04/14/2011 22:27 EST) Glucose, Fingerstick 367(H) 70 - 100 mg/dl [facility] [place] [id number] [facility] Comment:Test Performed by rsing [employer] 04/14/2011 22:2 7 EST 04/14/2011 22:51 EST us Mary Jauregui MD CHEMISTRY & BLOOD GAS ORDER TEJ Final Result Performing Organization Address [facility] de Phone Number [facility] [address] [place] [address] * (ABNORMAL) GLUCOSE, GLUCOMETER (04/14/2011 16:49 EST) Glucose, Fingerstick 206(H) 70 - 100 mg/dl [facility] [place] ID [id number] [facility] Comment:Test Performed by rsing [employer] 04/14/2011 16:4 9 EST 04/14/2011 16:50 EST Mary Jauregui MD CHEMISTRY & BLOOD GAS ORDER TEJ Final Result Performing Organization Address [facility] Phone Number [facility] [address] [place] [address] * (ABNORMAL) GLUCOSE, GLUCOMETER (04/14/2011 12:09 EST) Glucose, Fingerstick 238(H) 70 - 100 mg/dl [facility] [place] ID [id number] [facility] Comment:Test Performed by [employer] 04/14/2011 12:0 9 EST 04/14/2011 12:17 EST us Mary Jauregui MD CHEMISTRY & BLOOD GAS ORDER TEJ Final Result Performing Organization Address [facility] Phone Number [facility] [address] [place] [address] * (ABNORMAL) GLUCOSE, GLUCOMETER (04/14/2011 7:58 EST) Glucose, Fingerstick 143(H) 70 - 100 mg/dl [facility] [place] [id number] [facility] Comment:Test Performed by [employer] 04/14/2011 7:58 EST 04/14/2011 8:01 EST us Mary Jauregui MD CHEMISTRY & BLOOD GAS ORDER TEJ Final Result Performing Organization Address [facility] Phone Number [facility] [address] [place] [address] * (ABNORMAL) GLUCOSE, GLUCOMETER (04/13/2011 22:35 EST) Glucose, Fingerstick 209(H) 70 - 100 mg/dl [facility] [place] [id number] [facility] Comment:Test Performed by [employer] 04/13/2011 22:3 5 EST 04/13/2011 22:38 EST us Mary Jauregui MD CHEMISTRY & BLOOD GAS ORDER TEJ Final Result Performing Organization Address [facility] de Phone Number [facility] [address] [place] [address] * (ABNORMAL) GLUCOSE, GLUCOMETER (04/13/2011 21:12 EST) Glucose, Fingerstick 237(H) 70 - 100 mg/dl [facility] [place] ID [id number] [facility] Comment:Test Performed by [employer] 04/13/2011 21:1 2 EST 04/13/2011 21:15 EST us Mary Jauregui MD CHEMISTRY & BLOOD GAS ORDER TEJ Final Result Performing Organization Address [facility] Phone Number [facility] [address] [place] [address] * (ABNORMAL) GLUCOSE, GLUCOMETER (04/13/2011 17:14 EST) Glucose, Fingerstick 254(H) 70 - 100 mg/dl [facility] [place] ID [id number] [facility] Comment:Test Performed by [employer] 04/13/2011 17:1 4 EST 04/13/2011 17:15 EST us Mary Jauregui MD CHEMISTRY & BLOOD GAS ORDER TEJ Final Result Performing Organization Address [facility] Phone Number [facility] [address] [place] [address] * (ABNORMAL) GLUCOSE, GLUCOMETER (04/13/2011 11:24 EST) Glucose, Fingerstick 211(H) 70 - 100 mg/dl [facility] [place] ID [id number] [facility] Comment:Test Performed by [employer] 04/13/2011 11:2 4 EST 04/13/2011 11:26 EST us Mary Jauregui MD CHEMISTRY & BLOOD GAS ORDER TEJ Final Result Performing Organization Address [facility] Phone Number [facility] [address] [place] [address] * (ABNORMAL) GLUCOSE, GLUCOMETER (04/13/2011 7:39 EST) Glucose, Fingerstick 164(H) 70 - 100 mg/dl [facility] [place] [id number] [facility] Comment:Test Performed by [employer] 04/13/2011 7:39 EST 04/13/2011 7:40 EST us Mary Jauregui MD CHEMISTRY & BLOOD GAS ORDER TEJ Final Result Performing Organization Address [facility]/State/ZIP Co de Phone Number [facility] [address] [place] [address] * (ABNORMAL) GLUCOSE, GLUCOMETER (04/12/2011 20:47 EST) Glucose, Fingerstick 208(H) 70 - 100 mg/dl [facility] [place] [id number] [facility] Comment:Test Performed by [employer] 04/12/2011 20:4 7 EST 04/13/2011 1:47 EST us Mary Jauregui MD CHEMISTRY & BLOOD GAS ORDER TEJ Final Result Performing Organization Address [facility] de Phone Number [facility] [address] [place] [address] * (ABNORMAL) GLUCOSE, GLUCOMETER (04/12/2011 17:00 EST) Glucose, Fingerstick 223(H) 70 - 100 mg/dl [facility] [place] ID [id number] [facility] Comment:Test Performed by [employer] 04/12/2011 17:0 0 EST 04/12/2011 17:02 EST us Mary Jauregui MD CHEMISTRY & BLOOD GAS ORDER TEJ Final Result Performing Organization Address [facility] de Phone Number [facility] [address] [place] [address] * (ABNORMAL) GLUCOSE, GLUCOMETER (04/12/2011 11:54 EST) Glucose, Fingerstick 183(H) 70 - 100 mg/dl [facility] [place] [id number] [facility] Comment:Test Performed by [employer] 04/12/2011 11:5 4 EST 04/12/2011 11:55 EST us Mary Jauregui MD CHEMISTRY & BLOOD GAS ORDER TEJ Final Result Performing Organization Address [facility] Co de Phone Number [facility] [address] [place] [address] * (ABNORMAL) GLUCOSE, GLUCOMETER (04/12/2011 7:34 EST) Glucose, Fingerstick 173(H) 70 - 100 mg/dl [facility] [place] [id number] [facility] Comment:Test Performed by [employer] Services 04/12/2011 7:34 EST 04/12/2011 8:00 EST us Mary Jauregui MD CHEMISTRY & BLOOD GAS ORDER TEJ Final Result Performing Organization Address [facility] de Phone Number [facility] [address] [place] [address] * (ABNORMAL) GLUCOSE, GLUCOMETER (04/11/2011 20:57 EST) Glucose, Fingerstick 242(H) 70 - 100 mg/dl [facility] [place] [id number] [facility] Comment:Test Performed by [facility] 04/11/2011 20:5 7 EST 04/11/2011 21:01 EST us Mary Jauregui MD CHEMISTRY & BLOOD GAS ORDER TEJ Final Result Performing Organization Address [facility] de Phone Number [facility] [address] [place] [address] * (ABNORMAL) GLUCOSE, GLUCOMETER (04/11/2011 17:14 EST) Glucose, Fingerstick 164(H) 70 - 100 mg/dl [facility] [place] [id number] [facility] Comment:Test Performed by [employer] Services 04/11/2011 17:1 4 EST 04/11/2011 17:17 EST Mary Jauregui MD CHEMISTRY & BLOOD GAS ORDER TEJ Final Result Performing Organization Address [facility] de Phone Number [facility] [address] [place] [address] * (ABNORMAL) GLUCOSE, GLUCOMETER (04/11/2011 7:58 EST) Glucose, Fingerstick 106(H) 70 - 100 mg/dl [facility] [place] [id number] [facility] Comment:Test Performed by [employer] 04/11/2011 7:58 EST 04/11/2011 8:08 EST Mary Jauregui MD CHEMISTRY & BLOOD GAS ORDER TEJ Final Result Performing Organization Address [facility] de Phone Number [facility] [address] [place] [address] * (ABNORMAL) GLUCOSE, GLUCOMETER (04/10/2011 21:09 EST) Glucose, Fingerstick 280(H) 70 - 100 mg/dl [facility] [place] [id number] [facility] Comment:Test Performed by [employer] 04/10/2011 21:0 9 EST 04/10/2011 21:11 EST Mary Jauregui MD CHEMISTRY & BLOOD GAS ORDER TEJ Final Result Performing Organization Address [facility] Co de Phone Number [facility] [address] [place] [address] * (ABNORMAL) GLUCOSE, GLUCOMETER (04/10/2011 17:00 EST) Glucose, Fingerstick 226(H) 70 - 100 mg/dl [facility] [place] [id number] [facility] Comment:Test Performed by [employer] 04/10/2011 17:0 0 EST 04/10/2011 17:02 EST us Mary Jauregui MD CHEMISTRY & BLOOD GAS ORDER TEJ Final Result Performing Organization Address [facility] Co de Phone Number [facility] [address] [place] [address] * (ABNORMAL) GLUCOSE, GLUCOMETER (04/10/2011 11:55 EST) Glucose, Fingerstick 150(H) 70 - 100 mg/dl [facility] [place] [id number] [facility] Comment:Test Performed by [employer] 04/10/2011 11:5 5 EST 04/10/2011 11:57 EST us Mary Jauregui MD CHEMISTRY & BLOOD GAS ORDER TEJ Final Result Performing Organization Address [facility] Phone Number [facility] [address] [place] [address] * (ABNORMAL) GLUCOSE, GLUCOMETER (04/10/2011 7:59 EST) Glucose, Fingerstick 221(H) 70 - 100 mg/dl [facility] [place] [id number] [facility] Comment:Test Performed by [employer] 04/10/2011 7:59 EST 04/10/2011 8:02 EST us Mary Jauregui MD CHEMISTRY & BLOOD GAS ORDER TEJ Final Result Performing Organization Address [facility] Phone Number [facility] [address] [place] [address] * (ABNORMAL) GLUCOSE, GLUCOMETER (04/09/2011 21:20 EST) Glucose, Fingerstick 295(H) 70 - 100 mg/dl [facility] [place] [id number] [facility] Comment:Test Performed by [employer] 04/09/2011 21:2 0 EST 04/09/2011 21:22 EST us Mary Jauregui MD CHEMISTRY & BLOOD GAS ORDER TEJ Final Result Performing Organization Address [facility] de Phone Number [facility] [address] [place] [address] * (ABNORMAL) GLUCOSE, GLUCOMETER (04/09/2011 17:29 EST) Glucose, Fingerstick 168(H) 70 - 100 mg/dl [facility] [place] ID [id number] [facility] Comment:Test Performed by [employer] 04/09/2011 17:2 9 EST 04/09/2011 17:30 EST us Mary Jauregui MD CHEMISTRY & BLOOD GAS ORDER TEJ Final Result Performing Organization Address [facility]/ZIP Co de Phone Number [facility] [address] [place] [address] * (ABNORMAL) GLUCOSE, GLUCOMETER (04/09/2011 12:11 EST) Glucose, Fingerstick 218(H) 70 - 100 mg/dl [facility] [address] [id number] [facility] Comment:Test Performed by [employer] 04/09/2011 12:1 1 EST 04/09/2011 12:13 EST us Mary Jauregui MD CHEMISTRY & BLOOD GAS ORDER TEJ Final Result Performing Organization Address [facility] de Phone Number [facility] [address] [place] [address] * (ABNORMAL) GLUCOSE, GLUCOMETER (04/09/2011 10:49 EST) Glucose, Fingerstick 221(H) 70 - 100 mg/dl [facility] [place] [id number] [facility] Comment:Test Performed by [employer] 04/09/2011 10:4 9 EST 04/09/2011 10:53 EST us Mary Jauregui MD CHEMISTRY & BLOOD GAS ORDER TEJ Final Result Performing Organization Address [facility] de Phone Number [facility] [address] [place] [address] * (ABNORMAL) GLUCOSE, GLUCOMETER (04/09/2011 7:59 EST) Glucose, Fingerstick 177(H) 70 - 100 mg/dl [facility] [place] [id number] [facility] Comment:Test Performed by [employer] 04/09/2011 7:59 EST 04/09/2011 8:02 EST us Mary Jauregui MD CHEMISTRY & BLOOD GAS ORDER TEJ Final Result Performing Organization Address [facility]/ZIP Co de Phone Number [facility] [address] [place] [address]04861 * (ABNORMAL) GLUCOSE, GLUCOMETER (04/08/2011 21:04 EST) Glucose, Fingerstick 228(H) 70 - 100 mg/dl [facility] [address] [id number] [facility] Comment:Test Performed by [employer] 04/08/2011 21:0 4 EST 04/08/2011 21:08 EST us Mary Jauregui MD CHEMISTRY & BLOOD GAS ORDER TEJ Final Result Performing Organization Address [facility] Co de Phone Number [facility] [address] [place] [address] * (ABNORMAL) GLUCOSE, GLUCOMETER (04/08/2011 17:22 EST) Glucose, Fingerstick 163(H) 70 - 100 mg/dl [facility] [place] ID [id number] [facility] Comment:Test Performed by [employer] 04/08/2011 17:2 2 EST 04/08/2011 17:25 EST us Mary Jauregui MD CHEMISTRY & BLOOD GAS ORDER TEJ Final Result Performing Organization Address [facility] Co de Phone Number [facility] [address] [place] [address] * (ABNORMAL) GLUCOSE, GLUCOMETER (04/08/2011 11:41 EST) Glucose, Fingerstick 254(H) 70 - 100 mg/dl [facility] [place] [id number] [facility] Comment:Test Performed by [employer] 04/08/2011 11:4 1 EST 04/08/2011 11:43 EST us Mary Jauregui MD CHEMISTRY & BLOOD GAS ORDER TEJ Final Result Performing Organization Address [facility] Co de Phone Number [facility] [address] [place] [address] * (ABNORMAL) GLUCOSE, GLUCOMETER (04/08/2011 8:08 EST) Glucose, Fingerstick 251(H) 70 - 100 mg/dl [facility] [place] ID [id number] [facility] Comment:Test Performed by [employer] 04/08/2011 8:08 EST 04/08/2011 8:11 EST Mary Jauregui MD CHEMISTRY & BLOOD GAS ORDER TEJ Final Result Performing Organization Address [facility] de Phone Number [facility] [address] [place] [address] * (ABNORMAL) GLUCOSE, GLUCOMETER (04/07/2011 23:56 EST) Glucose, Fingerstick 203(H) 70 - 100 mg/dl [facility] [place] [id number] [facility] Comment:Test Performed by [facility] 04/07/2011 23:5 6 EST 04/07/2011 23:59 EST Mary Jauregui MD CHEMISTRY & BLOOD GAS ORDER TEJ Final Result Performing Organization Address [facility] Phone Number [facility] [address] [place] [address] * (ABNORMAL) GLUCOSE, GLUCOMETER (04/07/2011 20:46 EST) Glucose, Fingerstick 271(H) 70 - 100 mg/dl [facility] [address] [id number] [facility] Comment:Test Performed by [facility] 04/07/2011 20:4 6 EST 04/07/2011 20:48 EST Mary Jauregui MD CHEMISTRY & BLOOD GAS ORDER TEJ Final Result Performing Organization Address [facility] de Phone Number [facility] [address] [place] [address] * (ABNORMAL) GLUCOSE, GLUCOMETER (04/07/2011 17:02 EST) Glucose, Fingerstick 168(H) 70 - 100 mg/dl [facility] [place] ID [id number] [facility] Comment:Test Performed by [employer] 04/07/2011 17:0 2 EST 04/07/2011 17:04 EST us Mary Jauregui MD CHEMISTRY & BLOOD GAS ORDER TEJ Final Result Performing Organization Address [facility] de Phone Number [facility] [address] [place] [address] * (ABNORMAL) GLUCOSE, GLUCOMETER (04/07/2011 11:46 EST) Glucose, Fingerstick 255(H) 70 - 100 mg/dl [facility] [place] [id number] [facility] Comment:Test Performed by [employer] 04/07/2011 11:4 6 EST 04/07/2011 11:49 EST us Mary Jauregui MD CHEMISTRY & BLOOD GAS ORDER TEJ Final Result Performing Organization Address [facility] Phone Number [facility] [address] [place] [address] * ECG REPORT - SCANNED (04/07/2011 8:08 EST) 04/07/2011 8:08 EST Narrative Transcriptions Drywall Taper, Scan - 04/07/2011 8:08 EST us Scan Drywall Taper PROCEDURE/MINOR SURGICAL ORDE RABLES Final Result * (ABNORMAL) GLUCOSE, GLUCOMETER (04/07/2011 7:36 EST) Glucose, Fingerstick 163(H) 70 - 100 mg/dl [facility] [place] ID [id number] [facility] Comment:Test Performed by [employer] 04/07/2011 7:36 EST 04/07/2011 7:39 EST us Mary Jauregui MD CHEMISTRY & BLOOD GAS ORDER TEJ Final Result Performing Organization Address [facility] Co de Phone Number [facility] [address] [place] [address]04861 * (ABNORMAL) GLUCOSE, GLUCOMETER (04/06/2011 21:21 EST) Glucose, Fingerstick 216(H) 70 - 100 mg/dl [facility] [address] [id number] [facility] Comment:Test Performed by [employer] 04/06/2011 21:2 1 EST 04/06/2011 21:31 EST us Mary Jauregui MD CHEMISTRY & BLOOD GAS ORDER TEJ Final Result Performing Organization Address [facility] Co de Phone Number [facility] [address] [place] [address] * (ABNORMAL) GLUCOSE, GLUCOMETER (04/06/2011 19:25 EST) Glucose, Fingerstick 272(H) 70 - 100 mg/dl [facility] [place] [id number] [facility] Comment:Test Performed by [employer] 04/06/2011 19:2 5 EST 04/06/2011 19:30 EST us Mary Jauregui MD CHEMISTRY & BLOOD GAS ORDER TEJ Final Result Performing Organization Address [facility] Co de Phone Number [facility] [address] [place] [address] * (ABNORMAL) GLUCOSE, GLUCOMETER (04/06/2011 12:06 EST) Glucose, Fingerstick 200(H) 70 - 100 mg/dl [facility] [place] [id number] [facility] Comment:Test Performed by [employer] 04/06/2011 12:0 6 EST 04/06/2011 12:07 EST Mary Jauregui MD CHEMISTRY & BLOOD GAS ORDER TEJ Final Result Performing Organization Address [facility] Co de Phone Number [facility] [address] [place] [address] * (ABNORMAL) GLUCOSE, GLUCOMETER (04/06/2011 8:02 EST) Glucose, Fingerstick 267(H) 70 - 100 mg/dl [facility] [place] ID [id number] [facility] Comment:[facility] 04/06/2011 8:02 EST 04/06/2011 8:04 EST Mary Jauregui MD CHEMISTRY & BLOOD GAS ORDER TEJ Final Result Performing Organization Address [facility] de Phone Number [facility] [address] [place] [address] * (ABNORMAL) GLUCOSE, GLUCOMETER (04/05/2011 21:37 EST) Glucose, Fingerstick 250(H) 70 - 100 mg/dl [facility] [place] [id number] [facility] Comment:Test Performed by [employer] 04/05/2011 21:3 7 EST 04/05/2011 23:01 EST Mary Jauregui MD CHEMISTRY & BLOOD GAS ORDER TEJ Final Result Performing Organization Address [facility] de Phone Number [facility] [address] [place] [address] * (ABNORMAL) GLUCOSE, GLUCOMETER (04/05/2011 17:22 EST) Glucose, Fingerstick 178(H) 70 - 100 mg/dl [facility] [place] [id number] [facility] Comment:[facility] 04/05/2011 17:2 2 EST 04/05/2011 17:23 EST Mary Jauregui MD CHEMISTRY & BLOOD GAS ORDER TEJ Final Result Performing Organization Address [facility] de Phone Number [facility] [address] [place] [address] * (ABNORMAL) GLUCOSE, GLUCOMETER (04/05/2011 11:52 EST) Glucose, Fingerstick 260(H) 70 - 100 mg/dl [facility] [place] [id number] [facility] Comment:Test Performed by [employer] 04/05/2011 11:5 2 EST 04/05/2011 11:54 EST Mary Jauregui MD CHEMISTRY & BLOOD GAS ORDER TEJ Final Result Performing Organization Address [facility] de Phone Number [facility] [address] [place] [address] * (ABNORMAL) GLUCOSE, GLUCOMETER (04/05/2011 8:13 EST) Glucose, Fingerstick 155(H) 70 - 100 mg/dl [facility] [place] [id number] [facility] Comment:Test Performed by [employer] 04/05/2011 8:13 EST 04/05/2011 8:18 EST Mary Jauregui MD CHEMISTRY & BLOOD GAS ORDER TEJ Final Result Performing Organization Address [facility] de Phone Number [facility] [address] [place] [address] * (ABNORMAL) GLUCOSE, GLUCOMETER (04/04/2011 20:50 EST) Glucose, Fingerstick 200(H) 70 - 100 mg/dl [facility] [place] ID [id number] [facility] Comment:Test Performed by [employer] 04/04/2011 20:5 0 EST 04/04/2011 20:54 EST Mary Jauregui MD CHEMISTRY & BLOOD GAS ORDER TEJ Final Result Performing Organization Address [facility] de Phone Number [facility] [address] [place] [address] * (ABNORMAL) GLUCOSE, GLUCOMETER (04/04/2011 16:49 EST) Glucose, Fingerstick 124(H) 70 - 100 mg/dl [facility] [place] [id number] [facility] Comment:Test Performed by [employer] 04/04/2011 16:4 9 EST 04/04/2011 16:52 EST us Mary Jauregui MD CHEMISTRY & BLOOD GAS ORDER TEJ Final Result [facility] [address] [place] [address] * CONSULT NUTRITION (04/04/2011 14:55 EST) Narrative [...] and follow up BENITO MEJIA RD Pager [phone] Procedure Note Benito Mejia RD - 04/04/2011 [...] suggest check methylmalonic acid to assess for [id number] Suggest p.o. MVM to assure pt. Meets needs for vitamins. likely vitamin Ddeficient d/t age, season and current illness. Please check vitamin Dlevel Rec: 1) will try to meet with pt again on Thursday 2) please check methylmalonic acid and vitamin D 3) p.o. Multivitamin and mineral daily Ongoing monitor and follow up BENITO MEJIA RD Pager [phone] Mary Jauregui MD INPATIENT CONSULT ORDERABLE S Final Result Performing Organization Address [facility] de Phone Number POINT OF CARE * (ABNORMAL) GLUCOSE, GLUCOMETER (04/04/2011 11:12 EST) Glucose, Fingerstick 272(H) 70 - 100 mg/dl [facility] [place] [id number] [facility] Comment:Test Performed by [employer] 04/04/2011 11:1 2 EST 04/04/2011 11:25 EST us Mary Jauregui MD CHEMISTRY & BLOOD GAS ORDER TEJ Final Result Performing Organization Address [facility] de Phone Number [facility] [address] [place] [address] * (ABNORMAL) GLUCOSE, GLUCOMETER (04/04/2011 8:28 EST) Glucose, Fingerstick 139(H) 70 - 100 mg/dl [facility] [place] ID [id number] [facility] Comment:Test Performed by [employer] 04/04/2011 8:28 EST 04/04/2011 8:40 EST Mary Jauregui MD CHEMISTRY & BLOOD GAS ORDER TEJ Final Result Performing Organization Address [facility] de Phone Number [facility] [address] [place] [address] * (ABNORMAL) GLUCOSE, GLUCOMETER (04/03/2011 16:51 EST) Glucose, Fingerstick 169(H) 70 - 100 mg/dl [facility] [place] ID [id number] [facility] Comment:Test Performed by [employer] 04/03/2011 16:5 1 EST 04/03/2011 16:53 EST Mary Jauregui MD CHEMISTRY & BLOOD GAS ORDER TEJ Final Result Performing Organization Address [facility] de Phone Number [facility] [address] [place] [address] * (ABNORMAL) GLUCOSE, GLUCOMETER (04/03/2011 11:58 EST) Glucose, Fingerstick 241(H) 70 - 100 mg/dl [facility] [address] ID [id number] [facility] Comment:Test Performed by [employer] 04/03/2011 11:5 8 EST 04/03/2011 12:01 EST Mary Jauregui MD CHEMISTRY & BLOOD GAS ORDER TEJ Final Result Performing Organization Address [facility] Phone Number [facility] [address] [place] [address] * (ABNORMAL) GLUCOSE, GLUCOMETER (04/03/2011 7:53 EST) Glucose, Fingerstick 195(H) 70 - 100 mg/dl [facility] [place] [id number] [facility] Comment:Test Performed by [employer] 04/03/2011 7:53 EST 04/03/2011 7:54 EST us Mary Jauregui MD CHEMISTRY & BLOOD GAS ORDER TEJ Final Result Performing Organization Address [facility] de Phone Number [facility] [address] [place] [address] * (ABNORMAL) GLUCOSE, GLUCOMETER (04/02/2011 20:30 EST) Glucose, Fingerstick 214(H) 70 - 100 mg/dl [facility] [place] [id number] [facility] Comment:Test Performed by [employer] 04/02/2011 20:3 0 EST 04/02/2011 20:32 EST us Mary Jauregui MD CHEMISTRY & BLOOD GAS ORDER TEJ Final Result Performing Organization Address [facility] Co de Phone Number [facility] [address] [place] [address] * (ABNORMAL) GLUCOSE, GLUCOMETER (04/02/2011 16:50 EST) Glucose, Fingerstick 131(H) 70 - 100 mg/dl [facility] [place] [id number] [facility] Comment:Test Performed by [employer] 04/02/2011 16:5 0 EST 04/02/2011 16:52 EST us Mary Jauregui MD CHEMISTRY & BLOOD GAS ORDER TEJ Final Result Performing Organization Address [facility] de Phone Number [facility] [address] [place] [address] * (ABNORMAL) GLUCOSE, GLUCOMETER (04/02/2011 11:51 EST) Glucose, Fingerstick 277(H) 70 - 100 mg/dl [facility] [place] [id number] [facility] Comment:Test Performed by [employer] 04/02/2011 11:5 1 EST 04/02/2011 11:52 EST Mary Jauregui MD CHEMISTRY & BLOOD GAS ORDER TEJ Final Result Performing Organization Address [facility] de Phone Number [facility] [address] [place] [address] * (ABNORMAL) GLUCOSE, GLUCOMETER (04/02/2011 10:09 EST) Glucose, Fingerstick 184(H) 70 - 100 mg/dl [facility] [place] ID [id number] [facility] Comment:Test Performed by [employer] 04/02/2011 10:0 9 EST 04/02/2011 10:10 EST Sajan Stanford MD CHEMISTRY & BLOOD GAS ORDERA BLES Final Result Performing Organization Address [facility]/ZIP Co de Phone Number [facility] [address] [place] [address] * (ABNORMAL) GLUCOSE, GLUCOMETER (04/02/2011 8:03 EST) Glucose, Fingerstick 130(H) 70 - 100 mg/dl [facility] [place] ID [id number] [facility] Comment:Test Performed by [employer] 04/02/2011 8:03 EST 04/02/2011 8:06 EST Sajan Stanford MD CHEMISTRY & BLOOD GAS ORDERA BLES Final Result Performing Organization Address [facility] de Phone Number [facility] [address] [place] [address] * (ABNORMAL) GLUCOSE, GLUCOMETER (04/01/2011 21:19 EST) Glucose, Fingerstick 264(H) 70 - 100 mg/dl [facility] [place] [id number] [facility] Comment:Test Performed by [employer] 04/01/2011 21:1 9 EST 04/01/2011 21:22 EST Sajan Stanford MD CHEMISTRY & BLOOD GAS ORDERA BLES Final Result Performing Organization Address [facility] de Phone Number [facility] [address] [place] [address] * (ABNORMAL) GLUCOSE, GLUCOMETER (04/01/2011 17:03 EST) Glucose, Fingerstick 200(H) 70 - 100 mg/dl [facility] [place] [id number] [facility] Comment:Test Performed by [employer] 04/01/2011 17:0 3 EST 04/01/2011 17:06 EST Sajan Stanford MD CHEMISTRY & BLOOD GAS ORDERA BLES Final Result Performing Organization Address [facility] Co de Phone Number [facility] [address] [place] [address] * (ABNORMAL) GLUCOSE, GLUCOMETER (04/01/2011 11:54 EST) Glucose, Fingerstick 187(H) 70 - 100 mg/dl [facility] [place] [id number] [facility] Comment:Test Performed by [facility] [place] 04/01/2011 11:5 4 EST 04/01/2011 11:55 EST Sajan Stanford MD CHEMISTRY & BLOOD GAS ORDERA BLES Final Result Performing Organization Address [facility] de Phone Number [facility] [address] [place] [address] * (ABNORMAL) GLUCOSE, GLUCOMETER (04/01/2011 8:00 EST) Glucose, Fingerstick 146(H) 70 - 100 mg/dl [facility] [place] [id number] [facility] Comment:Test Performed by [facility] 04/01/2011 8:00 EST 04/01/2011 8:03 EST Sajan Stanford MD CHEMISTRY & BLOOD GAS ORDERA BLES Final Result Performing Organization Address [facility] de Phone Number [facility] [address] [place] [address] * NORTRIPTYLINE (03/31/2011 20:54 EST) Nortriptyline 87 ng/mL [facility] Comment: (Note) -- REFERENCE VALUE -- 70-170 (Therapeutic concentration), >=500 (Toxic concentration) Performed by: [facility], [address], [place] [address], Social Group Worker: Yumiko Katz, Ph.D. Blood specimen (specimen) 03/31/2011 20:54 EST 03/31/2011 21:20 EST Arthur Davila MD CHEMISTRY & BLOOD GAS ORDER TEJ Final Result Performing Organization Address [facility] de Phone Number [facility] [address] [place] [address] * (ABNORMAL) GLUCOSE, GLUCOMETER (03/31/2011 20:47 EST) Glucose, Fingerstick 334(H) 70 - 100 mg/dl [facility] [place] [id number] [facility] Comment:Test Performed by [employer] 03/31/2011 20:4 7 EST 03/31/2011 20:49 EST Sajan Stanford MD CHEMISTRY & BLOOD GAS ORDERA BLES Final Result Performing Organization Address [facility] Co de Phone Number [facility] [address] [place] [address] * (ABNORMAL) GLUCOSE, GLUCOMETER (03/31/2011 17:12 EST) Glucose, Fingerstick 109(H) 70 - 100 mg/dl [facility] [place] ID [id number] [facility] Comment:Test Performed by [employer] 03/31/2011 17:1 2 EST 03/31/2011 17:14 EST Sajan Stanford MD CHEMISTRY & BLOOD GAS ORDERA BLES Final Result Performing Organization Address [facility] Co de Phone Number [facility] [address] [place] [address] * (ABNORMAL) GLUCOSE, GLUCOMETER (03/31/2011 11:29 EST) Glucose, Fingerstick 255(H) 70 - 100 mg/dl [facility] [place] [id number] [facility] Comment:Test Performed by [employer] 03/31/2011 11:2 9 EST 03/31/2011 11:31 EST Sajan Stanford MD CHEMISTRY & BLOOD GAS ORDERA BLES Final Result Performing Organization Address City/[facility]/ZIP Co de Phone Number [facility] [address] [place] [address] * (ABNORMAL) GLUCOSE, GLUCOMETER (03/31/2011 8:39 EST) Glucose, Fingerstick 128(H) 70 - 100 mg/dl [facility] [place] ID [id number] [facility] Comment:Test Performed by [employer] 03/31/2011 8:39 EST 03/31/2011 8:46 EST Sajan Stanford MD CHEMISTRY & BLOOD GAS ORDERA BLES Final Result Performing Organization Address City/[facility]/ZIP Co de Phone Number [facility] [address] [place] [address] * (ABNORMAL) GLUCOSE, GLUCOMETER (03/30/2011 20:58 EST) Glucose, Fingerstick 238(H) 70 - 100 mg/dl [facility] [place] [id number] [facility] Comment:Test Performed by [employer] 03/30/2011 20:5 8 EST 03/30/2011 21:03 EST Sajan Stanford MD CHEMISTRY & BLOOD GAS ORDERA BLES Final Result Performing Organization Address [facility] Co de Phone Number [facility] [address] [place] [address] * (ABNORMAL) GLUCOSE, GLUCOMETER (03/30/2011 16:54 EST) Glucose, Fingerstick 171(H) 70 - 100 mg/dl [facility] [place] [id number] [facility] Comment:Test Performed by rsing Services 03/30/2011 16:5 4 EST 03/30/2011 16:57 EST Sajan Stanford MD CHEMISTRY & BLOOD GAS ORDERA BLES Final Result Performing Organization Address [facility]/ZIP Co de Phone Number [facility] [address] [place] [address] * (ABNORMAL) GLUCOSE, GLUCOMETER (03/30/2011 11:53 EST) Glucose, Fingerstick 257(H) 70 - 100 mg/dl [facility] [place] [id number] [facility] Comment:Test Performed by Nu rsing Services 03/30/2011 11:5 3 EST 03/30/2011 11:56 EST Sajan Stanford MD CHEMISTRY & BLOOD GAS ORDERA BLES Final Result Performing Organization Address [facility] de Phone Number [facility] [address] [place] [address] * (ABNORMAL) GLUCOSE, GLUCOMETER (03/30/2011 7:42 EST) Glucose, Fingerstick 125(H) 70 - 100 mg/dl [facility] [place] ID [id number] [facility] Comment:Test Performed by rsing Services 03/30/2011 7:42 EST 03/30/2011 7:47 EST Sajan Stanford MD CHEMISTRY & BLOOD GAS ORDERA BLES Final Result Performing Organization Address [facility] de Phone Number [facility] [address] [place] [address] * (ABNORMAL) GLUCOSE, GLUCOMETER (03/30/2011 0:13 EST) Glucose, Fingerstick 185(H) 70 - 100 mg/dl [facility] [place] [id number] [facility] Comment:Test Performed by rsing Services 03/30/2011 0:13 EST 03/30/2011 5:34 EST Sajan Stanford MD CHEMISTRY & BLOOD GAS ORDERA BLES Final Result Performing Organization Address [facility] de Phone Number [facility] [address] [place] [address] * (ABNORMAL) GLUCOSE, GLUCOMETER (03/29/2011 20:47 EST) Glucose, Fingerstick 344(H) 70 - 100 mg/dl [facility] [place] [id number] [facility] Comment:Test Performed by Nu [employer] 03/29/2011 20:4 7 EST 03/29/2011 20:51 EST Sajan Stanford MD CHEMISTRY & BLOOD GAS ORDERA BLES Final Result Performing Organization Address [facility] Co de Phone Number [facility] [address] [place] [address] * (ABNORMAL) GLUCOSE, GLUCOMETER (03/29/2011 17:06 EST) Glucose, Fingerstick 138(H) 70 - 100 mg/dl [facility] [place] [id number] [facility] Comment:Test Performed by Nu [employer] 03/29/2011 17:0 6 EST 03/29/2011 17:08 EST Sajan Stanford MD CHEMISTRY & BLOOD GAS ORDERA BLES Final Result Performing Organization Address [facility] Co de Phone Number [facility] [address] [place] [address] * (ABNORMAL) GLUCOSE, GLUCOMETER (03/29/2011 12:19 EST) Glucose, Fingerstick 217(H) 70 - 100 mg/dl [facility] [place] ID [id number] [facility] Comment:Test Performed by Nu [employer] 03/29/2011 12:1 9 EST 03/29/2011 12:21 EST Sajan Stanford MD CHEMISTRY & BLOOD GAS ORDERA BLES Final Result Performing Organization Address [facility] de Phone Number [facility] [address] [place] [address] * (ABNORMAL) GLUCOSE, GLUCOMETER (03/29/2011 7:52 EST) Glucose, Fingerstick 101(H) 70 - 100 mg/dl [facility] [place] ID [id number] [facility] Comment:Test Performed by Nu [employer] 03/29/2011 7:52 EST 03/29/2011 7:55 EST Sajan Stanford MD CHEMISTRY & BLOOD GAS ORDERA BLES Final Result Performing Organization Address [facility] de Phone Number [facility] [address] [place] [address] * (ABNORMAL) GLUCOSE, GLUCOMETER (03/28/2011 21:14 EST) Glucose, Fingerstick 214(H) 70 - 100 mg/dl [facility] [place] ID [id number] [facility] Comment:Test Performed by Nu r[employer] Services 03/28/2011 21:1 4 EST 03/28/2011 21:17 EST Sajan Stanford MD CHEMISTRY & BLOOD GAS ORDERA BLES Final Result Performing Organization Address [facility] Phone Number [facility] [address] [place] [address] * (ABNORMAL) GLUCOSE, GLUCOMETER (03/28/2011 17:14 EST) Glucose, Fingerstick 218(H) 70 - 100 mg/dl [facility] [place] [id number] [facility] Comment:Test Performed by Nu [employer] Services 03/28/2011 17:1 4 EST 03/28/2011 17:18 EST Sajan Stanford MD CHEMISTRY & BLOOD GAS ORDERA BLES Final Result Performing Organization Address [facility] de Phone Number [facility] [address] [place] [address] * (ABNORMAL) GLUCOSE, GLUCOMETER (03/28/2011 12:16 EST) Glucose, Fingerstick 264(H) 70 - 100 mg/dl [facility] [place] [id number] [facility] Comment:Test Performed by Nu [employer] Services 03/28/2011 12:1 6 EST 03/28/2011 12:18 EST Sajan Stanford MD CHEMISTRY & BLOOD GAS ORDERA BLES Final Result Performing Organization Address [facility] Co de Phone Number [facility] [address] [place] [address] * (ABNORMAL) GLUCOSE, GLUCOMETER (03/28/2011 8:15 EST) Glucose, Fingerstick 119(H) 70 - 100 mg/dl [facility] [place] [id number] [facility] Comment:Test Performed by Nu [employer] Services 03/28/2011 8:15 EST 03/28/2011 8:53 EST Sajan Stanford MD CHEMISTRY & BLOOD GAS ORDERA BLES Final Result Performing Organization Address [facility] de Phone Number [facility] [address] [place] [address] * (ABNORMAL) GLUCOSE, GLUCOMETER (03/27/2011 21:10 EST) Glucose, Fingerstick 175(H) 70 - 100 mg/dl [facility] [place] [id number] [facility] Comment:Test Performed by Nu [employer]sing Services 03/27/2011 21:1 0 EST 03/27/2011 21:11 EST Sajan Stanford MD CHEMISTRY & BLOOD GAS ORDERA BLES Final Result Performing Organization Address [facility] de Phone Number [facility] [address] [place] [address] * (ABNORMAL) GLUCOSE, GLUCOMETER (03/27/2011 17:11 EST) Glucose, Fingerstick 200(H) 70 - 100 mg/dl [facility] [place] ID [id number] [facility] Comment:Test Performed by Nu rsing Services 03/27/2011 17:1 1 EST 03/27/2011 17:13 EST Sajan Stanford MD CHEMISTRY & BLOOD GAS ORDERA BLES Final Result Performing Organization Address [facility] Co de Phone Number [facility] [address] [place] [address] * (ABNORMAL) GLUCOSE, GLUCOMETER (03/27/2011 14:46 EST) Glucose, Fingerstick 224(H) 70 - 100 mg/dl [facility] [place] ID [id number] [facility] Comment:Test Performed by Nu [employer] Services 03/27/2011 14:4 6 EST 03/27/2011 14:50 EST Sajan Stanford MD CHEMISTRY & BLOOD GAS ORDERA BLES Final Result Performing Organization Address [facility] de Phone Number [facility] [address] [place] [address] * (ABNORMAL) GLUCOSE, GLUCOMETER (03/27/2011 11:52 EST) Glucose, Fingerstick 227(H) 70 - 100 mg/dl [facility] [place] ID [id number] [facility] Comment:Test Performed by Nu r[employer] Services 03/27/2011 11:5 2 EST 03/27/2011 11:56 EST Sajan Stanford MD CHEMISTRY & BLOOD GAS ORDERA BLES Final Result Performing Organization Address [facility] de Phone Number [facility] [address] [place] [address] * (ABNORMAL) GLUCOSE, GLUCOMETER (03/27/2011 8:04 EST) Glucose, Fingerstick 162(H) 70 - 100 mg/dl [facility] [place] ID [id number] [facility] Comment:Test Performed by Nu [employer] Services 03/27/2011 8:04 EST 03/27/2011 8:06 EST Sajan Stanford MD CHEMISTRY & BLOOD GAS ORDERA BLES Final Result Performing Organization Address [facility] de Phone Number [facility] [address] [place] [address] * (ABNORMAL) GLUCOSE, GLUCOMETER (03/27/2011 1:41 EST) Glucose, Fingerstick 194(H) 70 - 100 mg/dl [facility] [place] [id number] [facility] Comment:Test Performed by Nu [employer] Services 03/27/2011 1:41 EST 03/27/2011 1:44 EST Sajan Stanford MD CHEMISTRY & BLOOD GAS ORDERA BLES Final Result Performing Organization Address [facility]/ZIP Co de Phone Number [facility] [address] [place] [address] * (ABNORMAL) GLUCOSE, GLUCOMETER (03/26/2011 21:01 EST) Glucose, Fingerstick 259(H) 70 - 100 mg/dl [facility] [place] [id number] [facility] Comment:Test Performed by Nu [employer] Services 03/26/2011 21:0 1 EST 03/26/2011 21:03 EST Sajan Stanford MD CHEMISTRY & BLOOD GAS ORDERA BLES Final Result Performing Organization Address [facility] Co de Phone Number [facility] [address] [place] [address] * (ABNORMAL) GLUCOSE, GLUCOMETER (03/26/2011 17:17 EST) Glucose, Fingerstick 160(H) 70 - 100 mg/dl [facility] [place] ID [id number] [facility] Comment:Test Performed by rsing Services 03/26/2011 17:1 7 EST 03/26/2011 17:18 EST Sajan Stanford MD CHEMISTRY & BLOOD GAS ORDERA BLES Final Result Performing Organization Address City/[facility]/ZIP Co de Phone Number [facility] [address] [place] [address] * (ABNORMAL) GLUCOSE, GLUCOMETER (03/26/2011 12:17 EST) Glucose, Fingerstick 186(H) 70 - 100 mg/dl [facility] [place] ID [id number] [facility] Comment:Test Performed by Nu [employer] 03/26/2011 12:1 7 EST 03/26/2011 12:19 EST Sajan Stanford MD CHEMISTRY & BLOOD GAS ORDERA BLES Final Result Performing Organization Address [facility] Co de Phone Number [facility] [address] [place] [address] * (ABNORMAL) GLUCOSE, GLUCOMETER (03/26/2011 8:10 EST) Glucose, Fingerstick 121(H) 70 - 100 mg/dl [facility] [place] ID [id number] [facility] Comment:Test Performed by rsing Services 03/26/2011 8:10 EST 03/26/2011 8:12 EST Sajan Stanford MD CHEMISTRY & BLOOD GAS ORDERA BLES Final Result Performing Organization Address [facility] de Phone Number [facility] [address] [place] [address] * ECG REPORT - SCANNED (03/26/2011 7:11 EST) 03/26/2011 7:11 EST Narrative Transcriptions Drywall Taper, Scan - 03/26/2011 7:11 EST us Scan Drywall Taper PROCEDURE/MINOR SURGICAL ORDE RABLES Final Result * (ABNORMAL) GLUCOSE, GLUCOMETER (03/25/2011 20:52 EST) Glucose, Fingerstick 299(H) 70 - 100 mg/dl [facility] [place] ID [id number] [facility] Comment:Test Performed by Nu rsing Services 03/25/2011 20:5 2 EST 03/25/2011 20:54 EST Result [facility] Sajan Stanford MD CHEMISTRY & BLOOD GAS ORDERA BLES Final Result Performing Organization Address [facility] Phone Number [facility] [address] [place] [address] * (ABNORMAL) GLUCOSE, GLUCOMETER (03/25/2011 16:53 EST) Glucose, Fingerstick 171(H) 70 - 100 mg/dl [facility] [place] ID [id number] [facility] Comment:Test Performed by Nu [employer] Services 03/25/2011 16:5 3 EST 03/25/2011 16:57 EST Sajan Stanford MD CHEMISTRY & BLOOD GAS ORDERA BLES Final Result Performing Organization Address [facility] de Phone Number [facility] [address] [place] [address] * (ABNORMAL) GLUCOSE, GLUCOMETER (03/25/2011 11:57 EST) Glucose, Fingerstick 240(H) 70 - 100 mg/dl [facility] [place] ID [id number] [facility] Comment:Test Performed by Nu [employer] Services 03/25/2011 11:5 7 EST 03/25/2011 11:59 EST Result [facility] Sajan Stanford MD CHEMISTRY & BLOOD GAS ORDERA BLES Final Result Performing Organization Address [facility] Phone Number [facility] [address] [place] [address] * (ABNORMAL) GLUCOSE, GLUCOMETER (03/25/2011 9:24 EST) Glucose, Fingerstick 153(H) 70 - 100 mg/dl [facility] [place] ID [id number] [facility] Comment:Test Performed by Nu [employer] Services 03/25/2011 9:24 EST 03/25/2011 9:26 EST Sajan Stanford MD CHEMISTRY & BLOOD GAS ORDERA BLES Final Result Performing Organization Address [facility] Co de Phone Number [facility] [address] [place] [address] * (ABNORMAL) GLUCOSE, GLUCOMETER (03/24/2011 20:58 EST) Glucose, Fingerstick 237(H) 70 - 100 mg/dl [facility] [place] ID [id number] [facility] Comment:Test Performed by Nu [employer] Services 03/24/2011 20:5 8 EST 03/24/2011 21:02 EST Sajan Stanford MD CHEMISTRY & BLOOD GAS ORDERA BLES Final Result Performing Organization Address [facility] de Phone Number [facility] [address] [place] [address] * (ABNORMAL) GLUCOSE, GLUCOMETER (03/24/2011 16:52 EST) Glucose, Fingerstick 251(H) 70 - 100 mg/dl [facility] [place] ID [id number] [facility] Comment:Test Performed by Nu [employer] 03/24/2011 16:5 2 EST 03/24/2011 16:55 EST Sajan Stanford MD CHEMISTRY & BLOOD GAS ORDERA BLES Final Result Performing Organization Address [facility] de Phone Number [facility] [address] [place] [address] * (ABNORMAL) GLUCOSE, GLUCOMETER (03/24/2011 11:57 EST) Glucose, Fingerstick 236(H) 70 - 100 mg/dl [facility] [place] ID [id number] [facility] Comment:Test Performed by Nu [employer] 03/24/2011 11:5 7 EST 03/24/2011 11:59 EST Sajan Stanford MD CHEMISTRY & BLOOD GAS ORDERA BLES Final Result Performing Organization Address [facility] Co de Phone Number [facility] [address] [place] [address] * UA REFLEX (03/24/2011 9:22 EST) UA Billing Microscopic not indicated. [facility] 03/24/2011 9:22 EST 03/24/2011 11:13 EST Jenae Metz MD URINALYSIS ORDERABLES Final Result Performing Organization Address [facility] de Phone Number [facility] [address] [place] [address] * URINALYSIS (03/24/2011 9:22 EST) Color, UA Yellow [facility] Clarity, UA Clear [facility] Glucose, UA Neg Neg [facility] Bilirubin, UA Neg Neg [facility] Ketones, UA Neg Neg [facility] Specific [place], Urine 1.010 1.001 - 1.035 [facility] Blood, UA Neg Neg [facility] pH, UA 5.5 4.6 - 8.0 [facility] Protein, UA Neg Neg [facility] Urobilinogen, UA 0.2 0.2 - 1.0 E.U./dl [facility] Nitrite, UA Neg Neg [facility] Leuk Esterase Neg Neg [facility] Urine specimen (specimen) 03/24/2011 9:22 EST 03/24/2011 11:13 EST us Jenae Metz MD URINALYSIS ORDERABLES Final Result Performing Organization Address [facility] Co de Phone Number [facility] [address] [place] [address] * (ABNORMAL) GLUCOSE, GLUCOMETER (03/24/2011 9:07 EST) Glucose, Fingerstick 138(H) 70 - 100 mg/dl [facility] [place] ID [id number] [facility] Comment:Test Performed by [facility] 03/24/2011 9:07 EST 03/24/2011 9:09 EST Sajan Stanford MD CHEMISTRY & BLOOD GAS ORDERA BLES Final Result Performing Organization Address [facility] Phone Number [facility] [address] [place] [address] * (ABNORMAL) GLUCOSE, GLUCOMETER (03/23/2011 22:46 EST) Glucose, Fingerstick 170(H) 70 - 100 mg/dl [facility] [place] ID [id number] [facility] Comment:Test Performed by [employer] 03/23/2011 22:4 6 EST 03/23/2011 23:01 EST Sajan Stanford MD CHEMISTRY & BLOOD GAS ORDERA BLES Final Result Performing Organization Address [facility] Phone Number [facility] [address] [place] [address] * (ABNORMAL) GLUCOSE, GLUCOMETER (03/23/2011 16:57 EST) Glucose, Fingerstick 260(H) 70 - 100 mg/dl [facility] [place] ID [id number] [facility] Comment:Test Performed by [employer] 03/23/2011 16:5 7 EST 03/23/2011 16:58 EST Result [facility] Sajan Stanford MD CHEMISTRY & BLOOD GAS ORDERA BLES Final Result Performing Organization Address [facility] Phone Number [facility] [address] [place] [address] * (ABNORMAL) GLUCOSE, GLUCOMETER (03/23/2011 12:01 EST) Glucose, Fingerstick 228(H) 70 - 100 mg/dl [facility] [place] ID [id number] [facility] Comment:Test Performed by [employer] 03/23/2011 12:0 1 EST 03/23/2011 12:06 EST Sajan Stanford MD CHEMISTRY & BLOOD GAS ORDERA BLES Final Result Performing Organization Address [facility] de Phone Number [facility] [address] [place] [address] * (ABNORMAL) GLUCOSE, GLUCOMETER (03/23/2011 8:43 EST) Glucose, Fingerstick 170(H) 70 - 100 mg/dl [facility] [place] ID [id number] [facility] Comment:Test Performed by [employer] 03/23/2011 8:43 EST 03/23/2011 8:58 EST Sajan Stanford MD CHEMISTRY & BLOOD GAS ORDERA BLES Final Result Performing Organization Address [facility] de Phone Number [facility] [address] [place] [address] * (ABNORMAL) GLUCOSE, GLUCOMETER (03/22/2011 21:08 EST) Glucose, Fingerstick 294(H) 70 - 100 mg/dl [facility] [place] [id number] [facility] Comment:Test Performed by rsing Services 03/22/2011 21:0 8 EST 03/22/2011 21:10 EST Result [facility] Sajan Stanford MD CHEMISTRY & BLOOD GAS ORDERA BLES Final Result Performing Organization Address [facility] de Phone Number [facility] [address] [place] [address] * FOLATE (03/22/2011 19:08 EST) Folate 21.6 ng/mL [facility] Comment: Deficient: ??Less than 3.4 ng/mL Indeterminate: ??3.4-5.4 ng/mL Normal: ??Greater than 5.4 ng/mL Blood specimen (specimen) 03/22/2011 19:08 EST 03/22/2011 19:26 EST Jenae Metz MD CHEMISTRY & BLOOD GAS ORDERABLES Final Result Performing Organization Address [facility] Co de Phone Number [facility] [address] [place] [address] * VITAMIN B12 (03/22/2011 19:08 EST) [facility] Vitamin B-12 381 211 - 911 pg/ml [facility] Blood specimen (specimen) 03/22/2011 19:08 EST 03/22/2011 19:26 EST Jenae Metz MD CHEMISTRY & BLOOD GAS ORDERABLES Final Result Performing Organization Address [facility] de Phone Number [facility] [address] [place] [address] * T4 FREE (03/22/2011 19:08 EST) [facility] Free T4 1.5 0.8 - 1.8 ng/dL [facility] Blood specimen (specimen) 03/22/2011 19:08 EST 03/22/2011 19:26 EST Jenae Metz MD CHEMISTRY & BLOOD GAS ORDERABLES Final Result Performing Organization Address [facility] de Phone Number [facility] [address] [place] [address] * HEMAGRAM AND DIFFERENTIAL (03/22/2011 19:08 EST) [facility] WBC 6.60 4.0 - 10.4 K/cmm [facility] RBC 4.45 4.36 - 5.78 M/cmm [facility] Hemoglobin 13.8 13.8 - 17.3 gm/dl [facility] HCT 39.6 39.5 - 50.2 % [facility] MCV 89 81 - 95 fl [facility] MCH 31.0 27.6 - 33.0 pg [facility] MCHC 34.8 32.8 - 36.4 gm/dl [facility] PLT 226 141 - 320 K/cmm [facility] RDW-CV 13.0 11.8 - 14.1 % [facility] % Neutrophils 59.8 45.5 - 79.7 [...] (specimen) 03/22/2011 19:08 EST 03/22/2011 19:26 EST us Jenae Metz MD PACKAGES & DNA PROBE O RDERABLES Final Result Performing Organization Address [facility] Co de Phone Number [facility] [address] [place] [address] * TSH (03/22/2011 19:08 EST) TSH 0.71 0.35 - 5.00 uIU/ml [facility] Blood specimen (specimen) 03/22/2011 19:08 EST 03/22/2011 19:26 EST us Jenae Metz MD CHEMISTRY & BLOOD GAS ORDERABLES Final Result Performing Organization Address [facility] Co de Phone Number [facility] [address] [place] [address] * ALT (03/22/2011 19:08 EST) ALT 61 21 - 72 U/L [facility] Blood specimen (specimen) 03/22/2011 19:08 EST 03/22/2011 19:26 EST us Jenae Metz MD CHEMISTRY & BLOOD GAS ORDERABLES Final Result Performing Organization Address [facility] Co de Phone Number [facility] [address] [place] [address] * (ABNORMAL) AST (03/22/2011 19:08 EST) AST 53(H) 15 - 46 U/L [facility] Blood specimen (specimen) 03/22/2011 19:08 EST 03/22/2011 19:26 EST us Jenae Metz MD CHEMISTRY & BLOOD GAS ORDERABLES Final Result Performing Organization Address [facility] de Phone Number [facility] [address] [place] [address] * ALBUMIN (03/22/2011 19:08 EST) Albumin 4.3 3.4 - 4.9 g/dl [facility] Blood specimen (specimen) 03/22/2011 19:08 EST 03/22/2011 19:26 EST Jenae Metz MD CHEMISTRY & BLOOD GAS ORDERABLES Final Result Performing Organization Address [facility] de Phone Number [facility] [address] [place] [address] * (ABNORMAL) GGT (03/22/2011 19:08 EST) GGT 82(H) 15 - 73 U/L [facility] Blood specimen (specimen) 03/22/2011 19:08 EST 03/22/2011 19:26 EST us Jenae Metz MD CHEMISTRY & BLOOD GAS ORDERABLES Final Result Performing Organization Address [facility] de Phone Number [facility] [address] [place] [address] * ALKALINE PHOSPHATASE (03/22/2011 19:08 EST) Total Alkaline Phosphatase 71 38 - 126 U/L [facility] Blood specimen (specimen) 03/22/2011 19:08 EST 03/22/2011 19:26 EST Jenae Metz MD CHEMISTRY & BLOOD GAS ORDERABLES Final Result Performing Organization Address [facility] de Phone Number [facility] [address] [place] [address] * CREATININE (03/22/2011 19:08 EST) Creatinine 0.80 0.7 - 1.5 mg/dl [facility] GFR, Calculated >60 >60 ml/min/1.7 3m2 [facility] Blood specimen (specimen) 03/22/2011 19:08 EST 03/22/2011 19:26 EST Jenae Metz MD CHEMISTRY & BLOOD GAS ORDERABLES Final Result Performing Organization Address [facility] Phone Number [facility] [address] [place] [address] * BUN (03/22/2011 19:08 EST) BUN 14 10 - 26 mg/dl [facility] Blood specimen (specimen) 03/22/2011 19:08 EST 03/22/2011 19:26 EST Jenae Metz MD CHEMISTRY & BLOOD GAS ORDERABLES Final Result Performing Organization Address [facility] de Phone Number [facility] [address] [place] [address] * (ABNORMAL) ELECTROLYTES (03/22/2011 19:08 EST) Sodium 137 136 - 145 mEq/L [facility] Potassium 4.6 3.5 - 5.0 mEq/L [facility] Chloride 100 96 - 110 mEq/L [facility] CO2 23(L) 24 - 32 mEq/L [facility] Blood specimen (specimen) 03/22/2011 19:08 EST 03/22/2011 19:26 EST Jenae Metz MD CHEMISTRY & BLOOD GAS ORDERABLES Final Result Performing Organization Address [facility] [facility] de Phone Number [facility] [address] [place] [address] * (ABNORMAL) SCREENING GLUCOSE (03/22/2011 19:08 EST) Glucose, Screening 273(H) 70 - 100 mg/dl [facility] Blood specimen (specimen) 03/22/2011 19:08 EST 03/22/2011 19:26 EST Result [facility] Jenae Metz MD CHEMISTRY & BLOOD GAS ORDERABLES Final Result Performing Organization Address [facility] de Phone Number [facility] [address] [place] [address] * (ABNORMAL) GLUCOSE, GLUCOMETER (03/22/2011 18:07 EST) Glucose, Fingerstick 215(H) 70 - 100 mg/dl [facility] Pumper [place]er [place] [id number] [facility] Comment:Test Performed by [facility] 03/22/2011 18:0 7 EST 03/22/2011 18:12 EST Result [facility] Sajan Stanford MD CHEMISTRY & BLOOD GAS ORDERA BLES Final Result Performing Organization Address [facility] Phone Number [facility] [address] [place] [address] documented in this encounter Visit Diagnoses Diagnosis Diabetes mellitus ([facility]) Type II or unspecified type diabetes mellitus without mention of complication, not stated as uncontrolled Major depression Major depressive disorder, single episode, unspecified CAD (coronary artery disease) Coronary atherosclerosis of unspecified type of vessel, bill moore's slough or graft documented in this encounter Administered [...] dose, Starting on 04/04/11 at 0954, Until 04/04/11 at 0957 ibuprofen (MOTRIN) tablet 600 mg 600 mg, oral, 3 TIMES DAILY PRN, Starting on Deloris 04/03/11 at 0731, Until 05/05/11 at 1510, Pain, headache, Routine Given 05/03/2011 20:38 EST 600 mg Given 04/30/2011 20:43 EST 600 mg Given 04/26/2011 9:38 EST 600 mg insulin aspart (NOVOLOG FlexPen) injection subcutaneous, 3 TIMES DAILY WITH MEALS, First dose on Thu03/23/11 at 0800, Until Discontinued, Routine Given 04/15/2011 [...] mL/hr, intravenous, CONTINUOUS, Starting on Thu04/28/11 at 0945, Until Thu04/28/11 at 1014, Routine, Recovery (only) Given by Other 04/28/2011 10:55 EST 75 mL/hr lactated ringers (LR) infusion at 75 mL/hr, intravenous, CONTINUOUS, Starting on Thu04/28/11 at 1000, Until Thu04/28/11 at 1014, Routine, Recovery (only) Given by Other 04/28/2011 10:55 EST 75 mL/hr lisinopril (PRINIVIL, ZESTRIL) tablet 10 mg 10 mg, oral, DAILY, First dose on Thu03/23/11 at 0900, Until Discontinued, Routine Given 05/05/2011 8:40 EST 10 mg Given 05/04/2011 8:10 EST 10 mg Given 05/03/2011 9:15 EST 10 mg lorazepam (ATIVAN) tablet 0.5 mg 0.5 mg, oral, 2 TIMES DAILY PRN, Starting on Thu04/18/11 at 1655, Until Thu04/24/11 at 1719, Anxiety, Other, agitation, Routine Given 04/23/2011 18:01 EST 0.5 mg Given 04/23/2011 11:13 EST 0.5 mg Given 04/22/2011 18:52 EST 0.5 mg lorazepam (ATIVAN) tablet 0.5 mg 0.5 mg, oral, DAILY PRN, Starting on Deloris 04/24/11 at 1730, Until 04/28/11 at 2359, Anxiety, Other, agitation, Routine Given [...] PRN, Starting on 03/23/11 at 1240, Until 04/18/11 at 1655, Anxiety, Other, agitation, Routine Given 04/17/2011 17:36 EST 1 mg Given 04/17/2011 3:59 EST 1 mg Given 04/16/2011 21:11 EST 1 mg lorazepam (ATIVAN) tablet 1 mg 1 mg, oral, AT BEDTIME PRN, Starting on 03/31/11 at 1106, Until Thu04/16/11 at 1715, Anxiety, Routine Given 04/15/2011 19:16 EST 1 mg Given 04/14/2011 22:02 EST 1 mg Given 04/13/2011 21:33 EST 1 mg metformin (GLUCOPHAGE) tablet 1,000 mg 1,000 mg, oral, 2 TIMES DAILY, First dose on 03/22/11 at 2100, Until Discontinued, RoutineIndications:type 2 diabetes mellitus Given 05/05/2011 8:40 EST 1,0 00 mg Given 05/04/2011 21:44 EST 1,000 mg Given 05/04/2011 8:09 EST 1,000 mg nadolol (CORGARD) tablet 20 mg 20 mg, oral, DAILY, First dose (after last modification) on 03/22/11 at 2100, Until Discontinued, RoutineIndications:hypertension Given 05/05/2011 8:40 EST 2 0 mg Given 05/04/2011 8:10 EST 20 mg Given 05/03/2011 9:11 EST 20 mg nicotine (NICOTROL) 10 mg inhaler 1 Inhaler 1 Inhaler, inhalation, EVERY 2 HOURS PRN, Starting on 03/22/11 at 1945, Until 05/05/11 at 1510, Smoking Cessation, Routine Given 05/04/2011 [...] modification) on 03/24/11 at 2100, Until Discontinued, RoutineIndications:depression Given 05/04/2011 21:44 EST 100 mg Given 05/03/2011 21:51 EST 100 mg Given 05/02/2011 21:47 EST 100 mg nortriptyline (PAMELOR) capsule 25 mg 25 mg, oral, AT BEDTIME, First dose (after last modification) on 03/22/11 at 2100, Until Discontinued, RoutineIndications:depression Given 03/23/2011 20:45 EST 25 mg Given 03/22/2011 21:20 EST 25 mg oxycodone-acetaminophen (PERCOCET) 5-325 mg per tablet 1 Tab 1 Tablet, oral, 2 TIMES DAILY PRN, Starting on Thu04/06/11 at 1115, Until Thu04/18/11 at 1655, Pain, Routine Given 04/17/2011 21:04 EST 1 Tablet Given 04/17/2011 17:37 EST 1 Tablet Given 04/16/2011 21:11 EST 1 Tablet oxycodone-acetaminophen (PERCOCET) 5-325 mg per tablet 1 Tab 1 Tablet, oral, DAILY PRN, Starting on Thu04/18/11 at 1700, Until 04/29/11 at 2359, Pain, Routine Given 04/29/2011 21:01 [...] Starting on Deloris 03/27/11 at 1735, Until 03/31/11 at 1031, Sleep, Routine Given 03/31/2011 0:37 EST 10 mg Given 03/30/2011 21:56 EST 10 mg Given 03/29/2011 22:00 EST 10 mg zolpidem (AMBIEN) tablet 10 mg 10 mg, oral, AT BEDTIME, First dose (after last modification) on 03/31/11 at 2100, Until Discontinued, Routine Given 05/04/2011 [...] may reflect changes made after this encounter. clopidogrel (PLAVIX) 75 mg tablet Take 75 mg by mouth daily. nicotine polacrilex (NICORETTE) 4 mg gumIndications:n icotine withdrawal symptoms Take 4 mg by mouth as needed. Indications: NICOTINE WITHDRAWAL SYMPTOMS nortriptyline (PAMELOR) 50 mg capsuleIndicatio ns:depression Take 100 mg by mouth at bedtime. Indications: DEPRESSION nadolol (CORGARD) 20 mg tabletIndication s:hypertension Take 20 mg by mouth daily. Indications: HYPERTENSION metformin (GLUCOPHAGE) 1,000 mg tabletIndication s:type 2 [...] CpDR Take 135 mg by mouth daily. 2 perphenazine (TRILAFON) 8 mg tablet Take 12 mg by mouth at bedtime. 2 hydrochlorothiaz johnson (HYDRODIURIL) 25 mg tablet Take 12.5 mg by mouth daily. 2 added in this encounter Active and Recently [...] Routine 0907 (Given - Provider: Alice Fatima RN)2151 (Given - Provider: Christina Torres) 0810 (Given - Provider: Alice Fatima RN)2144 (Given - Provider: Christina Torres) 0840 (Given - Provider: Tamika Cordero) Fenofibrate Nanocrystallized (TRICOR) tablet 145 mg 145 mg, oral, DAILY, First dose on Thu03/23/11 [...] Routine 0908 (Given - Provider: Alice Fatima RN)2150 (Given - Provider: Christina Torres) 0809 (Given - Provider: Alice Fatima RN)2143 (Given - Provider: Christina Torres) 0840 (Given [...] on 03/24/11 at 2100, Until Discontinued, Routine 2150 (Given - Provider: Christina Torres) 2143 (Given - Provider: Christina Torres) zolpidem (AMBIEN) tablet 10 mg 10 mg, oral, AT BEDTIME, First dose (after last modification) on 03/31/11 at 2100, Until Discontinued, Routine 2216 (Given - Provider: Christina Torres - Comment: pt prefers later)2358 (Given - Provider: Dvaid Bustillo) 223 (Given - Provider: Christina Torres - Comment: pt prefers later administration)235 (Given - Provider: Matt Coats RN) PRN Medication Order 05/03/2011 05/04/2011 05/05/2011 hydrOXYzine (ATARAX) tablet 50 mg (COMPLETED) 50 mg, oral, ONCE PRN, 1 dose, Starting on 05/04/11 at 1853, Until 05/04/11 at 2010, Anxiety, Routine 2010 (Given - Provider: Christina oTrres) ibuprofen (MOTRIN) tablet 600 mg (CANCELED) 600 [...] Routine 2042 (Given - Provider: Christina Torres) 2149 (Given - Provider: Christina Torres) documented in [...] injection 0.5-2 mg 1 11/2010 influenza vaccine [id number] (PF) (FLUZONE) 45 mcg (15 mcg x [...] 05/05/2011 documented in this encounter Care Teams Medical Orderly Relationship Specialty Start Date End Date None, Provider PCP - General 03/22/11 03/23/11 Igyg Sevilla MD [address] [place] [address] PCP - General 03/24/11 12/19/18 documented as of this encounter
--- OUTSIDE RECORDS SUMMARY | 2024-04-19 15:22 | XMS_ITS | Encounter Summary ---
[place] [address] Care Team Providers Care Forestry Pilot Name Role Phone Dewayne Carrington MD Primary Care Provider [phone] Encounter Details Date Type Department Care Team (Latest Contact Info) Description 06/26/2022 10:00 AM EST - 06/26/2022 11:59 PM EST Hospital Encounter [place] [address] Discharge Disposition: Home Social History Tobacco Use [...] Care Team (Late st Contact Info) Description 06/15/2024 10:00 AM EST Hospital Encounter Non-Invasive [place] [address] Arrived documented as of this encounter Procedures [...] on filedocumented in this encounter Care Teams Forestry Pilot Relationship Specialty Start Date End Date Dewayne Carrington MD PCP - General 09/02/16 documented as of this encounter
--- OUTSIDE RECORDS SUMMARY | 2024-04-19 15:22 | XMS_ITS | Encounter Summary ---
[place] [address] Care Team Providers Care Traffic Analyst Name Role Phone Dewayne Carrington MD Primary Care Provider Encounter Details Date Type Department Care Team (Latest Contact Info) Description 06/21/2023 10:00 AM EST - 06/21/2023 11:59 PM EST Hospital Encounter Non-Invasive [place] [address] Discharge Disposition: Home Social History Tobacco Use [...] EST Hospital Encounter Non-Invasive [place] [address] Arrived documented as of this encounter Procedures [...] on filedocumented in this encounter Care Teams Traffic Analyst Relationship Specialty Start Date End Date Dewayne Carrington MD PCP - General 09/02/16 documented as of this encounter
--- OUTSIDE RECORDS SUMMARY | 2024-04-19 15:22 | XMS_ITS | Encounter Summary ---
[place] [address] Care Team Providers Care Mechanical Service Technician Name Role Phone Dewayne Carrington MD Primary Care Provider [phone] Encounter Details Date Type Department Care Team (Latest Contact Info) Description 03/17/2024 10:00 AM EST - 03/17/2024 11:59 PM EST Hospital Encounter Non-Invasive [place] [address] Discharge Disposition: Home Social History Tobacco Use [...] EST Hospital Encounter Non-Invasive [place] [address] Arrived documented as of this encounter Visit Diagnoses Not on filedocumented in this encounter Care Teams Mechanical Service Technician Relationship Specialty Start Date End Date Dewayne Carrington MD PCP - General 09/02/16 documented as of this encounter
--- OUTSIDE RECORDS SUMMARY | 2024-04-19 15:22 | XMS_ITS | Encounter Summary ---
[place] [address] Care Team Providers Care Circus Laborer Name Role Phone Dewayne Carrington MD Primary Care Provider [phone] Encounter Details Date Type Department Care Team (Latest Contact Info) Description 09/19/2023 10:00 AM EDT - 09/19/2023 11:59 PM EDT Hospital Encounter Non-Invasive [place] [address] Discharge Disposition: Home Social History Tobacco Use [...] AM EST Hospital Encounter Non-Invasive [place] [address] Arrived documented as of this encounter Procedures Procedure Name Priority Date/Time Associated Diagnosis Comments PRO ICD INTERROGATION REMOTE UP TO 90 DAYS Routine 09/17/2023 12:18 AM EDT documented in this encounter Results * Cardiac Device Check - Remote (09/17/2023 12:18 AM EDT) Anatomical Region Laterality Modality Other 09/17/2023 12:1 8 AM EDT Shaheen Molina MD IMPLANTABLE CARDIAC DEVICE documented in this encounter Visit Diagnoses Not on filedocumented in this encounter Care Teams Circus Laborer Relationship Specialty Start Date End Date Dewayne Carrington MD PCP - General 09/02/16 documented as of this encounter
--- OUTSIDE RECORDS SUMMARY | 2024-04-19 15:22 | XMS_ITS | Encounter Summary ---
[place] [address] Care Team Providers Care Tree Climber Name Role Phone Dewayne Carrington MD Primary Care Provider [phone] Encounter Details Date Type Department Care Team (Late st Contact Info) Description 11/20/2021 Orders Only Cardiology at [address] [address] Social History Tobacco Use Types Packs/Day Years [...] AM EST Hospital Encounter Non-[place] [address] Arrived documented as of this encounter Procedures Procedure Name Priority Date/Time Associated Diagnosis Comments CARDIAC DEVICE CHECK - REMOTE Routine 11/20/2021 9:51 AM EDT documented in this encounter Results * Cardiac Device Check - Remote (11/20/2021 9:51 AM EDT) Date Time Interrogation Session IDCO Type Interrogation Session Remote IDCO Clinic Name [facility] IDCO Battery Date Time of Measurements [...] Capacitor Charge Type Shock IDCO Episode Identifier [id number] IDCO Episode Date Time IDCO Episode Type Category Other IDCO Episode Vendor Type Category XANDER IDCO Episode Detection Interval Ventricular 1,000 ms IDCO Episode Duration 60 s IDCO Episode Detection And Therapy Details IDCO Episode Identifier [id number] IDCO Episode Date Time IDCO Episode Type Category Other IDCO Episode Vendor Type Category XANDER IDCO Episode Detection Interval Ventricular 1,364 ms IDCO Episode Duration 64 s IDCO Episode Detection And Therapy Details IDCO Episode Identifier [id number] IDCO Episode Date Time IDCO Episode Type Category Other IDCO Episode Vendor Type Category XANDER IDCO Episode Detection Interval Ventricular 923 ms IDCO Episode Duration 96 s IDCO Episode Detection And Therapy Details IDCO Episode Identifier [id number] IDCO Episode Date Time [id number] IDCO Episode Type Category Other IDCO Episode Vendor Type Category XANDER IDCO Episode Detection Interval Ventricular 1,000 ms IDCO Episode Duration 101 s IDCO Episode Detection And Therapy Details IDCO Episode Identifier [id number] IDCO Episode Date Time IDCO Episode Type Category Other IDCO Episode Vendor Type Category XANDER IDCO Episode Detection Interval Ventricular 1,034 ms IDCO Episode Duration 55 s IDCO Episode Detection And Therapy Details IDCO Episode Identifier [id number] IDCO Episode Date Time IDCO Episode Type Category Other IDCO Episode Vendor Type Category XANDER IDCO Episode Detection Interval Ventricular 1,053 ms IDCO Episode Duration 55 s IDCO Episode Detection And Therapy Details IDCO Episode Identifier [id number] IDCO Episode Date Time IDCO Episode Type Category Other IDCO Episode Vendor Type Category XANDER IDCO Episode Detection Interval Ventricular 1,017 ms IDCO Episode Duration 56 s IDCO Episode Detection And Therapy Details IDCO Episode Identifier [id number] IDCO Episode Date Time IDCO Episode Type Category Other IDCO Episode Vendor Type Category XANDER IDCO Episode Detection Interval Ventricular 968 ms IDCO Episode Duration 56 s IDCO Episode Detection And Therapy Details IDCO Episode Identifier [id number] IDCO Episode Date Time IDCO Episode Type Category Other IDCO Episode Vendor Type Category XANDER IDCO Episode Detection Interval Ventricular 1,034 ms IDCO Episode Duration 55 s IDCO Episode Detection And Therapy Details IDCO Episode Identifier [id number] IDCO Episode Date Time IDCO Episode Type [...] E162 IDCO Implantable Pulse Generator Serial Number [id number] IDCO Implantable Pulse Generator Steam Pressure Chamber Operator [employer] IDCO Implantable Pulse Generator Implant Date 20140110 IDCO Implantable Lead Model 4136 IDCO Implantable Lead Serial Number [id number] IDCO Implantable Lead Steam Pressure Chamber Operator Guidant IDCO Implantable Lead Implant Date 20130421 IDCO Implantable Lead Polarity Type Bipolar Lead IDCO Implantable Lead Location Right Atrium IDCO Implantable Lead Model 0292 IDCO Implantable Lead Serial Number [id number] IDCO Implantable Lead Steam Pressure Chamber Operator [employer] IDCO Implantable Lead Implant Date IDCO [...] IDCO Lead Channel Pacing Threshold Measurement Method [employer] Librarian Manual IDCO Lead Channel Pacing Threshold Polarity [...] IDCO Lead Channel Pacing Threshold Measurement Method [employer] Librarian Manual IDCO Lead Channel Pacing Threshold Polarity [...] on filedocumented in this encounter Care Teams Tree Climber Relationship Specialty Start Date End Date Dewayne Carrington MD PCP - General 09/02/16 documented as of this encounter
--- OUTSIDE RECORDS SUMMARY | 2024-04-19 15:22 | XMS_ITS | Encounter Summary ---
[place] [address] Care Team Providers Care Dental Prosthetist Name Role Phone Dewayne Carrington MD Primary Care Provider [phone] Reason for Referral * Consultation (Routine) - Closed Specialty Diagnoses / Procedures Referred By Contac t Referred To Contact Neurology Diagnoses Dizziness and giddiness Dewayne Carrington MD [address] [place] [address] [place] [address] [facility] Neurology [address] [place] [address] Referral ID Status Reason Start Date Expiration Date V isits Requested Visits Authorized [id number] Closed Second Opinion 04/07/2023 04/06/2024 1 1 Encounter Details Date Type Department Care Team (Late st Contact Info) Description 04/07/2023 Transcribe Orders eD Incoming Referrals [phone] Dewayne Carrington MD [address] [place] [address] [address] [place], [place] [id number] Dizziness and giddiness Social History Tobacco Use [...] AM EST Hospital Encounter Non-Invasive [place] [address] Arrived Scheduled Referrals Name Type Priority Associated Diagnoses Orde r Schedule Referral to Neurology Outpatient Referral Routine Dizziness and giddiness Ordered: 04/07/2023 documented as of this encounter Visit Diagnoses Diagnosis Dizziness and giddiness documented in this encounter Care Teams Dental Prosthetist Relationship Specialty Start Date End Date Dewayne Carrington MD PCP - General 09/02/16 documented as of this encounter
--- OUTSIDE RECORDS SUMMARY | 2024-04-19 15:22 | XMS_ITS | Encounter Summary ---
Author Organization [facility] Address [facility] [place] [address] Care Team Providers Care Control Officer Name Role Phone Dewayne Carrington MD Primary Care Provider [phone] Reason for Visit * Consultation (Routine) - Closed Specialty Diagnoses / Procedures Referred By Conteddie t Referred To Contact Gastroenterology Diagnoses Steatohepatitis Dewayne Carrington MD [address] [place] [address] [facility]astro [address] [place] [address] Referral ID Status Reason Start Date Expiration Date V isits Requested Visits Authorized [id number] Closed Consult, Test & Treat PCP Updated and/or Approved 02/22/2022 02/22/2023 6 6 Encounter Details Date Type Department Care Team (Late st Contact Info) Description 03/18/2022 2:30 PM EST Office [place] [phone] Elsie Cristobal MD [facility] [place] [address] Fatty liver Social History Tobacco Use Types [...] Vitals: 03/18/22 1439 BP: 115/62 BP Location ([facility]): Right arm Patient Position: Sitting BP Cuff [...] to have an abnormal appearing liver at [facility] [...] Cristobal MD Section of Gastroenterology & Hepatology [address] [place], [place] [id number] Cc: Dewayne Carrington MD documented in this encounter Procedure Notes * Elsie Cristobal MD - 03/18/2022 2:30 PM ESTAssociated Order(s): FIBROSCAN Procedure(s): FIBROSCAN Pre-Procedure Diagnose(s): Fatty liver [facility] Liver Fibrosis Assessment Report Indication: Fatty liver Performed by: Elsie Cristobal MD Procedure: Vibration Controlled Transient Elastography (VCTE) or Fibroscan [place] Protocol: Patient's identity, procedure and site were [...] AM EST Hospital Encounter [place] [address] Arrived documented as of this encounter Procedures Procedure Name Priority Date/Time Associated Diagnosis Comments [id number] Routine 03/18/2022 2:30 PM EST Fatty liver documented in this encounter Results * [id number] (03/18/2022 2:30 PM EST) Narrative Elsie Cristobal MD - 03/18/2022 2:30 PM EST Elsie Cristobal MD ? 03/18/2022 ??8:34 PM [facility] Liver Fibrosis Assessment Report Indication: ??Fatty liver Performed by: ??Elsie Cristobal MD Procedure: Vibration Controlled Transient Elastography (VCTE) or Fibroscan [place] Protocol: Patient's identity, procedure and site were [...] disease documented in this encounter Care Teams Control Officer Relationship Specialty Start Date End Date Dewayne Carrington MD PCP - General 09/02/16 documented as of this encounter
--- OUTSIDE RECORDS SUMMARY | 2024-04-19 15:22 | XMS_ITS | Encounter Summary ---
Author Organization [facility] Address [facility] [address] Care Team Providers Care Test Man Name Role Phone Dewayne Carrington MD Primary Care Provider [phone] Encounter Details Date Type Department Care Team (Latest Contact Info) Description 12/26/2021 - 12/26/2021 11:59 PM EDT Hospital Encounter Non-Invasive [place] [address] [facility] [place] [address] V-tach Discharge Disposition: Home Social History Tobacco [...] AM EST Hospital Encounter Non-Invasive [place] [address] Arrived documented as of this encounter Procedures Procedure Name Priority Date/Time Associated Diagnosis Comments ICD INTERROGATION 3 MONTH Routine 12/27/2021 12:40 PM EDT V-tach documented in this encounter Results * ICD INTERROGATION 3 MONTH (12/27/2021 12:40 PM EDT) Anatomical Region Laterality Modality Other Narrative 12/27/2021 1:23 PM EDT Cardiac Device Remote Monitoring Report Summary [employer] Latitude Device: ICD Model: INCEPTA Battery: 'beginning of service' 3 years 6 months Pacing percentage: Minimal pacing Events: Presenting rhythm: atrial sensed/ventricular sensed Electrical lead noise observed Nov 4th Impression Normal device function Follow Up As per schedule - in-clinic and remote TA NEGRON MD 12/27/21 Ta Negron MD IMPLANTABLE CARDIAC DEVICE documented in this encounter Visit Diagnoses Diagnosis V-tach Paroxysmal ventricular tachycardia documented in this encounter Care Teams Test Man Relationship Specialty Start Date End Date Dewayne Carrington MD PCP - General 09/02/16 documented as of this encounter
--- OUTSIDE RECORDS SUMMARY | 2024-04-19 15:22 | XMS_ITS | Encounter Summary ---
Author Organization [facility] Address [facility] [place] [address] Care Team Providers Care Yard Switcher Name Role Phone Dewayne Carringotn MD Primary Care Provider [phone] Encounter Details Date Type Department Care Team (Latest Contact Info) Description 09/26/2021 - 09/26/2021 11:59 PM EDT Hospital Encounter Non-Invasive [place] [address] Irena Daly MD [facility] [place] [address] V-tach Discharge Disposition: Home Social History Tobacco [...] AM EST Hospital Encounter Non-Invasive [place] [address] Arrived documented as of this encounter Procedures [...] pdf document Date of transmission: 09/26/21 Device submarine diver: [facility] Device type: DC ICD Presenting rhythm: asvs AP 9% ADVICE CLERK 0% Battery: 3.5 years Episodes: None Stable lead trends. Activity 0.5 hr/day Irena Daly MD 10/02/2021 3:16 PM Irena Daly MD IMPLANTABLE CARDIAC DEVICE documented in this encounter Visit Diagnoses Diagnosis V-tach Paroxysmal ventricular tachycardia documented in this encounter Care Teams Yard Switcher Relationship Specialty Start Date End Date Dewayne Carrington MD PCP - General 09/02/16 documented as of this encounter
--- OUTSIDE RECORDS SUMMARY | 2024-04-19 15:22 | XMS_ITS | Encounter Summary ---
Author Organization [facility] Address [address] [place] [address] Care Team Providers Care Dam Operator Name Role Phone Iggy Sevilla MD Primary Care Provider [phone] Reason for Visit * Reason Onset Date Comments Procedure 04/04/2011 Encounter Details Date Type Department Care Team ([facility] st Contact Info) Description 04/04/2011 Pre-Procedure Orders Encounter [facility] Psychiatric Consultation Program - [address] [address] Juwan Sawant MD [address] [place] [address] [address] [place] [phone] Social History Tobacco Use Types Packs/Day Years [...] on filedocumented in this encounter Care Teams Dam Operator Relationship Specialty Start Date End Date Iggy Sevilla MD [address] [place] [phone] PCP - General 03/24/11 12/19/18 documented as of this encounter
--- OUTSIDE RECORDS SUMMARY | 2024-04-19 15:22 | XMS_ITS | Clinical Summary ---
Author Organization Formerly [facility], [facility] Address [facility] [place] [address] Care Team Providers Care Cad Designer Drafter Name Role Phone Dewayne Carrington MD Primary Care Provider [phone] Allergies Active Allergy Reactions Criticality Noted Date [...] 80 (documented on ICD interrogation 07/18/14) ?? [id number] score = 3 ?? Patient initially reluctant to be anticoagulated as recommended Atrial pacemaker lead displacement 04/10/2014 Overview (04/10/2014): New finding at office follow up 04/10/2014 Plan lead reposition/replacement ICD (implantable cardioverter-defibrillator), luis enrique maier, in situ 01/11/2014 Overview (04/18/2014): New Atrial electrode: Guidant Dextrus Model# 4126-53 cm Serial# [id number] ?? Bipolar, steroid-tipped, active-fixation IS-1 lead ?? [...] at 10 V: No Old Ventricular electrode: Sodus Score [employer] Devol Model# 0292 Serial# [id number] ?? Bipolar, steroid-tipped, active-fixation DF-4 lead ?? [...] Atrial electrode: Guidant Dextrus Model# 4136 Serial# [id number] ?? Bipolar, steroid-tipped, active-fixation IS-1 lead ?? Access: Axillary vein ?? Location Removed 04/17/2014 ?? Implanted: 01/10/2014 Pulse generator: Moat Incepta Model# E162 Serial# [id number] ?? DDDR ICD ?? Location: Subcutaneous The [...] 10/17/2010 Overview (11/06/2016): ?? Heart catheterization in [facility] in 2007 with placement of a stent in an unspecified vessel ?? Repeat heart catheterization in 2008 with placement of stents to both the LAD and circumflex ?? Followup heart catheterization in 2008 showing stable results in both vessels ?? Recurrent chest discomfort in a somewhat atypical pattern beginning fall ?? Nuclear stress test at [facility] in [place], [place] May 02, 2013 during which he developed left shoulder and arm discomfort during submaximal exercise on the treadmill and after which he was converted to a pharmacologic test; nuclear imaging showed ejection fraction of 45% with a partially reversible inferior defect ?? Cath [facility] 05/13/2013: normal left main, mild diffuse disease throughout the LAD with an 80% mid stenosis representing a restenosis lesion, mild diffuse disease in the proximal obtuse marginal branch, and mild diffuse disease throughout the right coronary artery; status post 3.0 X 12 mm JON to 80% mid-LAD lesion (in-stent restenosis) ?? Heart catheterization [facility] January 06, 2014 showing normal left main, hazy 50% mid LAD stenosis, mild diffuse disease throughout the circumflex, and moderate diffuse disease in the proximal RCA with a totally occluded distal RCA with brisk flow via bridging collaterals; fractional flow reserve on the LAD 0.85 ?? Nuclear stress test [facility] August 2016 reportedly showing a small area of inferior ischemia (final report pending) ?? Echo 11/06/16 showing inferior HK with EF 49%; no valvular disease Diabetes mellitus 10/17/2010 HTN (hypertension) 10/17/2010 Elevated cholesterol 10/17/2010 Resolved Problems Problem Noted Date Diagnosed Date Resolved Date Pressure injury of right buttock, stage 1 12/22/2018 03/04/2019 Encounters Date Type Department Care Team Description 03/17/2024 10:00 AM EST - 03/17/2024 11:59 PM EST Hospital Encounter [place] [address] Discharge Disposition: Home from Last [...] AM EST Hospital Encounter [place] [phone] Arrived Health Maintenance Due Date Last Done Comments CT Colonography 1949 Colonoscopy 1949 Colorectal Cancer Screening 1949 FIT DNA 1949 FIT 1949 Sigmoidoscopy (10 year) with FIT yearly 1949 Sigmoidoscopy 1949 DM Hemoglobin A1c 1959 DM Opthalmology Exam 1959 DM Urine Microalbumin yearly 1959 Pneumoccocal Vaccine: 65+ (1 of 2 - PCV) 1968 Tetanus/Diphtheria/Pertussis Vaccines (1 - Tdap) 1968 Zoster vaccine (1 of 2) 1999 Advance Directive 2004 RSV Vaccine (1 - Risk 60-74 years 1-dose series) 2009 AAA Screen 2014 DM Creatinine yearly 03/19/2022 03/19/2021, 10/23/2020, 09/01/2018, Additional history exists Covid-19 Vaccine (1 - 2023-2 5 season) 2023 Influenza (Flu) vaccine (1 o f 1 - Influenza standard series) 12/20/2023 Hepatitis C Screening Completed 03/19/2021 Medical Devices Implanted Type Area Production Support Manager Device Identifier Shelf Expiration Date Model / Serial / Lot Bsx : E162 : [id number] Implanted:2013 (Quantity not on file) Defibrillator Sodus Scientific E162 / [id number] / Description:Sodus Scientifi c : E[address] : [id number] When MRI is ordered @ [facility], Defibrillator E162 and Leads 0292 and 4126 combined together do not constitute an ImageReady MRI-Conditional System. The patient may not have a MRI with this system in place.BENSON Molina, [facility], MRI Safety Technologist 03/05/2018 Gdt [id number] Lead Guidant 4136 / [id number] / Description:When MRI is orde red @ [facility], Defibrillator E162 and Leads 0292 and 4126 combined together do not constitute an ImageReady MRI-Conditional System. The patient may not have a MRI with this system in place. BENSON Molina [facility], MRI Safety Technologist 03/05/2018 Bsx [id number] Lead Sodus Scientific 0292 / [id number] / Description:When MRI is orde red @ [facility], Defibrillator E162 and Leads 0292 and 4126 combined together do not constitute an ImageReady MRI-Conditional System. The patient may not have a MRI with this system in place. BENSON Molina MRSC, MRI Safety Technologist 03/05/2018 Gdt [id number] [id number] Lead Guidant 4136 / [id number] / Description:When MRI is orde red @ [facility], Defibrillator E162 and Leads 0292 and 4126 combined together do not constitute an ImageReady MRI-Conditional System. The patient may not have a MRI with this system in place. BENSON Molina MRSC, MRI Safety Technologist 03/05/2018 Procedures Procedure Name Priority Date/Time Associated Diagnosis Comments COMPREHENSIVE METABOLIC PANEL Routine 03/19/2021 3:50 PM EST Abnormal liver function test HC HEPATITIS C ANTIBODY Routine 03/19/2021 3:50 PM EST Abnormal liver function test from Last 3 Months or Most Recently Relevant to Health Maintenance Results * Hepatitis C Antibody (03/19/2021 3:50 PM EST) Hepatitis C Antibody Negative Negative [facility] Blood 03/19/2021 3:50 PM EST 03/19/2021 4:21 PM EST Narrative Resulting Agency Comment Spec In Lab Elsie Cristobal MD CHEMISTRY ORDERABLES [facility] [place] [address] * (ABNORMAL) Comprehensive metabolic panel (non-fasting) (03/19/2021 3:50 PM EST) Glucose 143 65 - 199 mg/dL [facility] Comment:Diabetes: >=200 mg/d L plus symptoms Blood Urea Nitrogen 20 10 - 20 mg/dL [facility] Creatinine 0.99 0.80 - 1.50 mg/dL [facility] Sodium 141 135 - 145 mmol/L [facility] Potassium 4.6 3.5 - 5.0 mmol/L [facility] Comment: Please note: ??Patients with WBC >100,000 may have falsely elevated Potassium levels. ??For accurate Potassium quantification in these patients send serum separator tube (gold top) for subsequent determinations. ??Contact the Clinical Chemistry Laboratory if there are any questions. Chloride 102 98 - 107 mmol/L [facility] Carbon Dioxide 25 22 - 31 mmol/L [facility] Anion Gap 14 5 - 15 mmol/L [facility] Calcium 9.9 8.5 - 10.5 mg/dL [facility] Protein, Total 7.6 6.1 - 8.0 g/dL [facility] Albumin 4.7 3.2 - 5.2 g/dL [facility] Aspartate Aminotransferase 116(H) 0 - 39 unit/L [facility] Alanine Aminotransferase 124(H) 0 - 55 unit/L [facility] Alkaline Phosphatase 77 40 - 130 unit/L [facility] Bilirubin, Total 0.6 0.2 - 1.3 mg/dL [facility] Est Glomerular Filtration Rate 76 >=60 mL/min/1. 73 m?? [facility] Comment: This patient? s [...] In Lab Elsie Cristobal MD [place] [address] from Last 3 Months or Most Recently [...] is based on Patients wishes. Care Teams Cad Designer Drafter Relationship Specialty Start Date End Date Dewayne Carrington MD PCP - General 09/02/16
--- OUTSIDE RECORDS SUMMARY | 2024-04-19 15:22 | XMS_ITS | Encounter Summary ---
[place] [address] Care Team Providers Care Spinning Operator Name Role Phone Dewayne Carrington MD Primary Care Provider [phone] Encounter Details Date Type Department Care Team (Latest Contact Info) Description 12/23/2022 10:00 AM EDT - 12/23/2022 11:59 PM EDT Hospital Encounter Non-Invasive [place] [address] Discharge Disposition: Home Social History Tobacco Use [...] AM EST Hospital Encounter Non-Invasive [place] [address] Arrived documented as of this encounter Procedures [...] on filedocumented in this encounter Care Teams Spinning Operator Relationship Specialty Start Date End Date Dewayne Carrington MD PCP - General 09/02/16 documented as of this encounter
--- OUTSIDE RECORDS SUMMARY | 2024-04-19 15:22 | XMS_ITS | Encounter Summary ---
Author Organization [facility] Address [address] [place] [address] Care Team Providers Care Finance Admin Name Role Phone Iggy Sevilla MD Primary Care Provider [phone] Reason for Visit * Reason Onset Date Comments Procedure 04/17/2011 Encounter Details Date Type Department Care Team ([facility] st Contact Info) Description 04/17/2011 Pre-Procedure Orders Encounter [facility] Psychiatric Consultation Program - [address] [address] Juwan Sawant MD [address] [place] [address] [address] [place] [phone] Social History Tobacco Use Types Packs/Day Years [...] on filedocumented in this encounter Care Teams Finance Admin Relationship Specialty Start Date End Date Iggy Sevilla MD [address] [place] [phone] PCP - General 03/24/11 12/19/18 documented as of this encounter
--- OUTSIDE RECORDS SUMMARY | 2024-04-19 15:22 | XMS_ITS | Encounter Summary ---
[place] [address] Care Team Providers Care Stonemason Helper Name Role Phone Dewayne Carrington MD Primary Care Provider [phone] Encounter Details Date Type Department Care Team (Latest Contact Info) Description 12/18/2023 10:00 AM EDT - 12/18/2023 11:59 PM EDT Hospital Encounter Non-[place] [address] Discharge Disposition: Home Social History Tobacco Use [...] AM EST Hospital Encounter Non-[place] [address] Arrived documented as of this encounter Visit Diagnoses Not on filedocumented in this encounter Care Teams Stonemason Helper Relationship Specialty Start Date End Date Dewayne Carrington MD PCP - General 09/02/16 documented as of this encounter
--- OUTSIDE RECORDS SUMMARY | 2024-04-19 15:22 | XMS_ITS | Encounter Summary ---
Author Organization [facility] Address [address] [place] [address] Care Team Providers Care Balance Bridge Inspector Name Role Phone Iggy Sevilla MD Primary Care Provider [phone] Reason for Visit * Reason Onset Date Comments Procedure 04/11/2011 Encounter Details Date Type Department Care Team ([facility] st Contact Info) Description 04/11/2011 Pre-Procedure Orders Encounter [facility] Psychiatric Consultation Program - [address] [address] Juwan Sawant MD [address] [place] [address] [address] [place] [phone] Social History Tobacco Use Types Packs/Day Years [...] on filedocumented in this encounter Care Teams Balance Bridge Inspector Relationship Specialty Start Date End Date Iggy Sevilla MD [address] [place] [phone] PCP - General 03/24/11 12/19/18 documented as of this encounter
--- OUTSIDE RECORDS SUMMARY | 2024-04-19 15:22 | XMS_ITS | Encounter Summary ---
Author Organization [facility] Address [address] [place] [address] Care Team Providers Care Restaurant Team Member Name Role Phone Iggy Sevilla MD Primary Care Provider Reason for Visit * Reason Onset Date Comments Procedure 04/10/2011 Encounter Details Date Type Department Care Team ([facility] st Contact Info) Description 04/10/2011 Pre-Procedure Orders Encounter [facility] Psychiatric Consultation Program - [address] [address] Juwan Sawant MD [address] [place] [address] [address] [place] [phone] Social History Tobacco Use Types Packs/Day Years [...] on filedocumented in this encounter Care Teams Restaurant Team Member Relationship Specialty Start Date End Date Iggy Sevilla MD [address] [place] [phone] PCP - General 03/24/11 12/19/18 documented as of this encounter
--- OUTSIDE RECORDS SUMMARY | 2024-04-19 15:22 | XMS_ITS | Encounter Summary ---
Author Organization [facility] Address [facility] [place] [address] Care Team Providers Care Chemical Engineering Intern Name Role Phone Dewayne Carrington MD Primary Care Provider [phone] Encounter Details Date Type Department Care Team ([facility] st Contact Info) Description 03/27/2023 [place] [phone] Maren Hernandez MD [facility] [place] [address] Social History Tobacco Use Types Packs/Day Years [...] Dino Fitzpatrick Patient Location: HPI: 72 [address] [place] Sci AICD for history of [place], Afib [...] not personally reviewed EKGs. Maren Hernandez MD Cooker Sulfate documented in this encounter Plan of Treatment Upcoming Encounters Date Type Department Care Team (Late st Contact Info) Description 06/15/2024 10:00 AM EST Hospital Encounter Non[place] [address] Arrived documented as of this encounter Visit Diagnoses Not on filedocumented in this encounter Care Teams Chemical Engineering Intern Relationship Specialty Start Date End Date Dewayne Carrington MD PCP - General 09/02/16 documented as of this encounter
--- OUTSIDE RECORDS SUMMARY | 2024-04-19 15:22 | XMS_ITS | Encounter Summary ---
[place] [address] Care Team Providers Care Rating Clerk Name Role Phone Dewayne Carrington MD Primary Care Provider [phone] Encounter Details Date Type Department Care Team (Latest Contact Info) Description 03/23/2023 10:00 AM EST - 03/23/2023 11:59 PM EST Hospital Encounter [place] [address] Discharge Disposition: Home Social History Tobacco Use [...] EST Hospital Encounter Non-Invasive [place] [address] Arrived documented as of this encounter Procedures [...] on filedocumented in this encounter Care Teams Rating Clerk Relationship Specialty Start Date End Date Dewayne aCrrington MD PCP - General 09/02/16 documented as of this encounter
--- OUTSIDE RECORDS SUMMARY | 2024-04-19 15:22 | XMS_ITS | Encounter Summary ---
[place] [address] Care Team Providers Care Government Auditor Name Role Phone Dewayne Carrington MD Primary Care Provider [phone] Reason for Referral * Consultation (Routine) - Closed Specialty Diagnoses / Procedures Referred By Contac t Referred To Contact Gastroenterology Diagnoses Steatohepatitis Dewayne Carrington MD [address] [place] [address] [place] [address] [facility] [address] [place] [address] Referral ID Status Reason Start Date Expiration Date V isits Requested Visits Authorized [id number] Closed Consult, Test & Treat PCP Updated and/or Approved 02/22/2022 02/22/2023 6 6 Encounter Details Date Type Department Care Team (Late st Contact Info) Description 02/22/2022 Transcribe Orders eDH Incoming Referrals [phone] Dewayne Carrington MD [address] [place] [address] [place] [address] Steatohepatitis Social History Tobacco Use Types Packs/Day [...] st Contact Info) Description 06/15/2024 10:00 AM [facility] Hospital Encounter [place] [address] Arrived Scheduled Referrals Name Type Priority Associated Diagnoses Order Schedule Referral to Gastroenterology Outpatient Referral Routine Steatohepatitis Ordered: 02/22/2022 documented as of this encounter Visit Diagnoses Diagnosis Steatohepatitis Other chronic nonalcoholic liver disease documented in this encounter Care Teams Government Auditor Relationship Specialty Start Date End Date Dewayne Carrington MD PCP - General 09/02/16 documented as of this encounter
--- OUTSIDE RECORDS SUMMARY | 2024-04-19 15:22 | XMS_ITS | Encounter Summary ---
Author Organization [facility] Address [facility] [place] [address] Care Team Providers Care Neuropsychology Medical Consultant Name Role Phone Dewayne Carrington MD Primary Care Provider [phone] Encounter Details Date Type Department Care Team (Late st Contact Info) Description 03/27/2022 Orders Only Cardiology at [address] [phone] Fantasma Matos MD [facility] [place] [address] Social History Tobacco Use Types Packs/Day Years [...] AM EST Hospital Encounter Non[place] [address] Arrived documented as of this encounter Procedures [...] on filedocumented in this encounter Care Teams Neuropsychology Medical Consultant Relationship Specialty Start Date End Date Dewayne Carrington MD PCP - General 09/02/16 documented as of this encounter
--- OUTSIDE RECORDS SUMMARY | 2024-04-19 15:22 | XMS_ITS | Encounter Summary ---
[place] [address] Care Team Providers Care Technical Report Writer Name Role Phone Dewayne Carrington MD Primary Care Provider [phone] Encounter Details Date Type Department Care Team (Late st Contact Info) Description 10/22/2021 Orders Only Cardiology at [address] [address] Social History Tobacco Use Types Packs/Day Years [...] AM EST Hospital Encounter Non-[place]vasive [place] [address] Arrived documented as of this encounter Procedures Procedure Name Priority Date/Time Associated Diagnosis Comments CARDIAC DEVICE CHECK - REMOTE DEVICE INITIATED Routine 10/22/2021 12:42 AM EDT documented in this encounter Results * Cardiac device check - Remote Device Initiated (10/22/2021 12:42 AM EDT) Date Time Interrogation Session IDCO Type Interrogation Session Remote Device Initiated IDCO Clinic Name [facility] IDCO Battery Date Time of Measurements [...] Therapy Details Presenting EGM IDCO Episode Identifier [id number] IDCO Episode Date Time IDCO Episode Type Category Other IDCO Episode Vendor Type Category XANDER IDCO Episode Detection Interval Ventricular 870 ms IDCO Episode Duration 50 s IDCO Episode Detection And Therapy Details IDCO Episode Identifier [id number] IDCO Episode Date Time IDCO Episode Type Category Other IDCO Episode Vendor Type Category XANDER IDCO Episode Detection Interval Ventricular 1,364 ms IDCO Episode Duration 60 s IDCO Episode Detection And Therapy Details IDCO Episode Identifier [id number] IDCO Episode Date Time IDCO Episode Type Category Other IDCO Episode Vendor Type Category XANDER IDCO Episode Detection Interval Ventricular 1,304 ms IDCO Episode Duration 60 s IDCO Episode Detection And Therapy Details IDCO Episode Identifier [id number] IDCO Episode Date Time IDCO Episode Type Category Other IDCO Episode Vendor Type Category XANDER IDCO Episode Detection Interval Ventricular 968 ms IDCO Episode Duration 59 s IDCO Episode Detection And Therapy Details IDCO Episode Identifier [id number] IDCO Episode Date Time IDCO Episode Type Category Other IDCO Episode Vendor Type Category XANDER IDCO Episode Detection Interval Ventricular 984 ms IDCO Episode Duration 57 s IDCO Episode Detection And Therapy Details IDCO Episode Identifier [id number] IDCO Episode Date Time IDCO Episode Type Category Other IDCO Episode Vendor Type Category XANDER IDCO Episode Detection Interval Ventricular 952 ms IDCO Episode Duration 57 s IDCO Episode Detection And Therapy Details Q IDCO Episode Identifier [id number] IDCO Episode Date Time IDCO Episode Type Category Other IDCO Episode Vendor Type Category XANDER IDCO Episode Detection Interval Ventricular 1,053 ms IDCO Episode Duration 59 s IDCO Episode Detection And Therapy Details Q IDCO Episode Identifier [id number] IDCO Episode Date Time IDCO Episode Type Category Other IDCO Episode Vendor Type Category XANDER IDCO Episode Detection Interval Ventricular 1,000 ms IDCO Episode Duration 58 s IDCO Episode Detection And Therapy Details IDCO Episode Identifier [id number] IDCO Episode Date Time IDCO Episode Type Category Other IDCO Episode Vendor Type Category XANDER IDCO Episode Detection Interval Ventricular 984 ms IDCO Episode Duration 176 s IDCO Episode Detection And Therapy Details IDCO Episode Identifier [id number] IDCO Episode Date Time IDCO Episode Type [...] E162 IDCO Implantable Pulse Generator Serial Number [id number] IDCO Implantable Pulse Generator Refractory Furnace Designer [employer] IDCO Implantable Pulse Generator Implant Date 20140110 IDCO Implantable Lead Model 4136 IDCO Implantable Lead Serial Number [id number] IDCO Implantable Lead Refractory Furnace Designer Guidant IDCO Implantable Lead Implant Date 20130421 IDCO Implantable Lead Polarity Type Bipolar Lead IDCO Implantable Lead Location Right Atrium IDCO Implantable Lead Model 0292 IDCO Implantable Lead Serial Number [id number] IDCO Implantable Lead Refractory Furnace Designer [employer] IDCO Implantable Lead Implant Date IDCO [...] IDCO Lead Channel Pacing Threshold Measurement Method Stamping Press Operator Manual IDCO Lead Channel Pacing Threshold [...] IDCO Lead Channel Pacing Threshold Measurement Method Stamping Press Operator Manual IDCO Lead Channel Pacing Threshold [...] on filedocumented in this encounter Care Teams Technical Report Writer Relationship Specialty Start Date End Date Dewayne Carrington MD PCP - General 09/02/16 documented as of this encounter
--- OUTSIDE RECORDS SUMMARY | 2024-04-19 15:22 | XMS_ITS | Encounter Summary ---
Author Organization [facility] Address [address] [place] [address] Care Team Providers Care Retail Pharmacist Name Role Phone Iggy Sevilla MD Primary Care Provider [phone] Reason for Visit * Reason Onset Date Comments Procedure 04/03/2011 Encounter Details Date Type Department Care Team ([facility] st Contact Info) Description 04/03/2011 Pre-Procedure Orders Encounter [facility] Psychiatric Consultation Program - [address] [address] Juwan Sawant MD [address] [place] [address] [address] [place] [phone] Social History Tobacco Use Types Packs/Day Years [...] on filedocumented in this encounter Care Teams Retail Pharmacist Relationship Specialty Start Date End Date Iggy Sevilla MD [address] [place] [phone] PCP - General 03/24/11 12/19/18 documented as of this encounter
--- OUTSIDE RECORDS SUMMARY | 2024-04-19 15:22 | XMS_ITS | Encounter Summary ---
Author Organization [facility] Address [address] [place] [address] Care Team Providers Care Stained Glass Joiner Name Role Phone Iggy Sevilla MD Primary Care Provider [phone] Reason for Visit * Reason Onset Date Comments Procedure 04/08/2011 Encounter Details Date Type Department Care Team ([facility] st Contact Info) Description 04/08/2011 Pre-Procedure Orders Encounter [facility] Psychiatric Consultation Program - [address] [address] Juwan Sawant MD [address] [place] [address] [address] [place] [phone] Social History Tobacco Use Types Packs/Day Years [...] in this encounter Care Teams Stained Glass Joiner Relationship Specialty Start Date End Date Iggy Sevilla MD [address] [place] [phone] PCP - General 03/24/11 12/19/18 documented as of this encounter
--- OUTSIDE RECORDS SUMMARY | 2024-04-19 15:22 | XMS_ITS | Encounter Summary ---
Author Organization [facility] Address [address] [place] [address] Care Team Providers Care Engineering Manager Name Role Phone Iggy Sevilla MD Primary Care Provider [phone] Reason for Visit * Reason Onset Date Comments Procedure 04/01/2011 Encounter Details Date Type Department Care Team ([facility] st Contact Info) Description 04/01/2011 Pre-Procedure Orders Encounter [facility] Psychiatric Consultation Program - [address] [address] Juwan Sawant MD [address] [place] [address] [address] [place] [phone] Social History Tobacco Use Types Packs/Day Years [...] on filedocumented in this encounter Care Teams Engineering Manager Relationship Specialty Start Date End Date Iggy Sevilla MD [address] [place] [phone] PCP - General 03/24/11 12/19/18 documented as of this encounter
--- OUTSIDE RECORDS SUMMARY | 2024-04-19 15:22 | XMS_ITS | Encounter Summary ---
[place] [address] Care Team Providers Care Cold Storage Worker Name Role Phone Dewayne Carrington MD Primary Care Provider [phone] Encounter Details Date Type Department Care Team (Late st Contact Info) Description 03/27/2023 Telephone Cardiology at [address] [address] Halina Garcia Social History Tobacco [...] next two weeks. He was seen at [facility] ED for dizziness and it is unclear if his device was interrogated completely. With Device Nurse is ok. [facility] Records have been requested. Halina Garcia EP Scheduling documented in this encounter Plan of Treatment Upcoming Encounters Date Type Department Care Team (Late st Contact Info) Description 06/15/2024 10:00 AM EST Hospital Encounter Non-[place]vasive [place] [address] Arrived documented as of this encounter Visit Diagnoses Not on filedocumented in this encounter Care Teams Cold Storage Worker Relationship Specialty Start Date End Date Dewayne Carrington MD PCP - General 09/02/16 documented as of this encounter
--- OUTSIDE RECORDS SUMMARY | 2024-04-19 15:22 | XMS_ITS | Encounter Summary ---
[place] [address] Care Team Providers Care Maintainer Plant Name Role Phone Dewayne Carrington MD Primary Care Provider [phone] Encounter Details Date Type Department Care Team (Late st Contact Info) Description 12/26/2021 Orders Only Cardiology at [address] [address] Social History Tobacco Use Types Packs/Day Years [...] AM EST Hospital Encounter [place] [address] Arrived documented as of this encounter Procedures Procedure Name Priority Date/Time Associated Diagnosis Comments CARDIAC DEVICE CHECK - REMOTE SCHEDULED Routine 12/26/2021 12:41 AM EDT documented in this encounter Results * Cardiac device check - Remote Scheduled (12/26/2021 12:41 AM EDT) Date Time Interrogation Session IDCO Type Interrogation Session Remote Scheduled IDCO Clinic Name [facility] IDCO Battery Date Time of [...] Therapy Details Presenting EGM [id number] Episode Date Time IDCO Episode Type Category Other IDCO Episode Vendor Type Category XANDER IDCO Episode Detection Interval Ventricular 1,034 ms IDCO Episode Duration 46 s IDCO Episode Detection And Therapy Details ID[id number] IDCO Episode Date Time IDCO Episode Type Category Other IDCO Episode Vendor Type Category XANDER IDCO Episode Detection Interval Ventricular 1,034 ms IDCO Episode Duration 50 s IDCO Episode Detection And Therapy Details [id number] IDCO Episode Date Time IDCO Episode Type Category Other IDCO Episode Vendor Type Category XANDER IDCO Episode Detection Interval Ventricular 822 ms IDCO Episode Duration 50 s IDCO Episode Detection And Therapy Details [id number] IDCO Episode Date Time IDCO Episode Type Category Other IDCO Episode Vendor Type Category XANDER IDCO Episode Detection Interval Ventricular 938 ms IDCO Episode Duration 56 s IDCO Episode Detection And Therapy Details [id number] IDCO Episode Date Time IDCO Episode Type Category Other IDCO Episode Vendor Type Category XANDER IDCO Episode Detection Interval Ventricular 750 ms IDCO Episode Duration 43 s IDCO Episode Detection And Therapy Details [id number] IDCO Episode Date Time IDCO Episode Type Category Other IDCO Episode Vendor Type Category XANDER IDCO Episode Detection Interval Ventricular 822 ms IDCO Episode Duration 46 s IDCO Episode Detection And Therapy Details [facility] IDCO Episode Identifier [id number] IDCO Episode Date Time IDCO Episode Type Category Other IDCO Episode Vendor Type Category XANDER IDCO Episode Detection Interval Ventricular 923 ms IDCO Episode Duration 52 s IDCO Episode Detection And Therapy Details [id number] IDCO Episode Date Time IDCO Episode Type Category Other IDCO Episode Vendor Type Category XANDER IDCO Episode Detection Interval Ventricular 923 ms IDCO Episode Duration 53 s IDCO Episode Detection And Therapy Details [facility] IDCO Episode Identifier [id number] IDCO Episode Date Time IDCO Episode Type Category Other IDCO Episode Vendor Type Category XANDER IDCO Episode Detection Interval Ventricular 923 ms IDCO Episode Duration 55 s IDCO Episode Detection And Therapy Details [facility] IDCO Episode Identifier [id number] IDCO Episode Date Time IDCO Episode Type Category Other IDCO Episode Vendor Type Category XANDER IDCO Episode Detection Interval Ventricular 923 ms IDCO Episode Duration 54 s IDCO Episode Detection And Therapy Details [facility] IDCO Episode Identifier [id number] IDCO Episode Date Time IDCO Episode Type [...] E162 IDCO Implantable Pulse Generator Serial Number [id number] IDCO Implantable Pulse Generator Tamper Operator [place] [employer] IDCO Implantable Pulse Generator Implant Date 20140110 IDCO Implantable Lead Model 4136 IDCO Implantable Lead Serial Number [id number] IDCO Implantable Lead Tamper Operator Guidant IDCO Implantable Lead Implant Date 20130421 IDCO Implantable Lead Polarity Type Bipolar Lead IDCO Implantable Lead Location Right Atrium IDCO Implantable Lead Model 0292 IDCO Implantable Lead Serial Number [id number] IDCO Implantable Lead Tamper Operator [place] [employer] IDCO Implantable Lead Implant Date IDCO [...] IDCO Lead Channel Pacing Threshold Measurement Method Logistics Project Manager Manual IDCO Lead Channel Pacing Threshold [...] IDCO Lead Channel Pacing Threshold Measurement Method Logistics Project Manager Manual IDCO Lead Channel Pacing Threshold [...] on filedocumented in this encounter Care Teams Maintainer Plant Relationship Specialty Start Date End Date Dewayne Carrington MD PCP - General 09/02/16 documented as of this encounter
--- OUTSIDE RECORDS SUMMARY | 2024-04-19 15:22 | XMS_ITS | Encounter Summary ---
Author Organization [place] [address] Care Team Providers Care Angiography Nurse Name Role Phone Dewayne Carrington MD Primary Care Provider [phone] Reason for Visit * Reason Comments Medication Refill Encounter Details Date Type Department Care Team (Late st Contact Info) Description 12/09/2021 Refill Cardiology at [address] [phone] Fantasma Matos MD [facility] [place] [address] Medication Refill Social History Tobacco Use Types [...] AM EST Hospital Encounter Non-[place]vasive [place] [phone] Arrived documented as of this encounter Visit Diagnoses Not on filedocumented in this encounter Care Teams Angiography Nurse Relationship Specialty Start Date End Date Dewayne Carrington MD PCP - General 09/02/16 documented as of this encounter
--- OUTSIDE RECORDS SUMMARY | 2024-04-19 15:22 | XMS_ITS | Encounter Summary ---
[place] [address] Care Team Providers Care Rooming House Keeper Name Role Phone Dewayne Carrington MD Primary Care Provider [phone] Encounter Details Date Type Department Care Team [...] st Contact Info) Description 06/15/2024 10:00 AM [facility] Hospital Encounter Non-[place] [address] Arrived documented as of this encounter Visit Diagnoses Not on filedocumented in this encounter Care Teams Rooming House Keeper Relationship Specialty Start Date End Date Dewayne Carrington MD PCP - General 09/02/16 documented as of this encounter
--- OUTSIDE RECORDS SUMMARY | 2024-04-19 15:22 | XMS_ITS | Encounter Summary ---
[place] [address] Care Team Providers Care Implementation Coordinator Name Role Phone Dewayne Carrington MD Primary Care Provider [phone] Encounter Details Date Type Department Care Team (Latest Contact Info) Description 09/24/2022 10:00 AM EDT - 09/24/2022 11:59 PM EDT Hospital Encounter Non-[place]vasive [place] [address] Discharge Disposition: Home Social History Tobacco Use [...] AM EST Hospital Encounter Non-[place]vasive [place] [address] Arrived documented as of this encounter Procedures [...] on filedocumented in this encounter Care Teams Implementation Coordinator Relationship Specialty Start Date End Date Dewayne Carrington MD PCP - General 09/02/16 documented as of this encounter
--- OUTSIDE RECORDS SUMMARY | 2024-04-19 15:22 | XMS_ITS | Encounter Summary ---
Author Organization [facility] Address [facility] [place] [address] Care Team Providers Care Shuttle Hand Name Role Phone Dewayne Carrington MD Primary Care Provider [phone] Encounter Details Date Type Department Care Team (Late st Contact Info) Description 10/22/2021 Notes Only Cardiology at [address] [phone] Edy uBrns PA [facility] [place] [address] Social History Tobacco Use Types Packs/Day Years [...] Electronic Device Remote Monitoring Interpretation Marquez Hendrix [id number] Transmission Date: 10/22/2021 Device Type: ICD Generator: [employer] E162 INCEPTA ICD / [id number] Battery Status: 3.5 years Charge Time: 11.7 sec Atrial Pacin% Ventricular Pacin% Alerts: Oct 21, 2021 19:16 Shock lead impedance out of range. Events/Arrhythmias noted since last reset: None Impression: Shock lead impedance is 128 ohms. Consulted with [employer] rep Js Szymanski who advised programming thealert threshold to 150 ohms. This will also reset the red alert in the device by interrogating withthe cobol programmer. Will contact schedulers to bring him into the clinic. Normally functioning device Edy Burns PA-C, PhD 10/22/2021 Pager [phone] documented in this encounter Plan of Treatment Upcoming Encounters Date Type Department Care Team (Late st Contact Info) Description 06/15/2024 10:00 AM [facility] Hospital Encounter Non[place] [address] Arrived documented as of this encounter Visit Diagnoses Not on filedocumented in this encounter Care Teams Shuttle Hand Relationship Specialty Start Date End Date Dewayne Carrington MD PCP - General 09/02/16 documented as of this encounter
--- OUTSIDE RECORDS SUMMARY | 2024-04-19 15:23 | XMS_ITS | Encounter Summary ---
[place] [address] Care Team Providers Care Boiler Technician Name Role Phone Dewayne Carrington MD Primary Care Provider [phone] Encounter Details Date Type Department Care Team (Late st Contact Info) Description 11/22/2020 Orders Only Cardiology at [address] [address] Social History Tobacco Use Types Packs/Day Years [...] AM EST Hospital Encounter Non-Invasive [place] [address] Arrived documented as of this encounter Procedures Procedure Name Priority Date/Time Associated Diagnosis Comments CARDIAC DEVICE CHECK - REMOTE DEVICE INITIATED Routine 11/22/2020 12:42 AM EDT documented in this encounter Results * Cardiac device check - Remote Device Initiated (11/22/2020 12:42 AM EDT) Date Time Interrogation Session IDCO Type Interrogation Session Remote Device Initiated IDCO Clinic Name [facility] IDCO Battery Date Time of Measurements [...] Therapy Details Presenting EGM IDCO Episode Identifier [id number] IDCO Episode Date Time IDCO Episode Type [...] And Therapy Details ATR IDCO Episode Identifier [id number] IDCO Episode Date Time IDCO Episode Type Category Other IDCO Episode Vendor Type Category XANDER IDCO Episode Detection Interval Ventricular 659 ms IDCO Episode Duration 43 s IDCO Episode Detection And Therapy Details IDCO Episode Identifier [id number] IDCO Episode Date Time IDCO Episode Type Category Other IDCO Episode Vendor Type Category XANDER IDCO Episode Detection Interval Ventricular 1,017 ms IDCO Episode Duration 60 s IDCO Episode Detection And Therapy Details IDCO Episode Identifier [id number] IDCO Episode Date Time IDCO Episode Type Category Other IDCO Episode Vendor Type Category XANDER IDCO Episode Detection Interval Ventricular 1,000 ms IDCO Episode Duration 58 s IDCO Episode Detection And Therapy Details IDCO Episode Identifier [id number] IDCO Episode Date Time IDCO Episode Type Category Other IDCO Episode Vendor Type Category XANDER IDCO Episode Detection Interval Ventricular 938 ms IDCO Episode Duration 52 s IDCO Episode Detection And Therapy Details IDCO Episode Identifier [id number] IDCO Episode Date Time [id number] IDCO Episode Type Category Other IDCO Episode Vendor Type Category XANDER IDCO Episode Detection Interval Ventricular 857 ms IDCO Episode Duration 50 s IDCO Episode Detection And Therapy Details IDCO Episode Identifier [id number] IDCO Episode Date Time [id number] IDCO Episode Type Category Other IDCO Episode Vendor Type Category XANDER IDCO Episode Detection Interval Ventricular 714 ms IDCO Episode Duration 38 s IDCO Episode Detection And Therapy Details IDCO Episode Identifier [id number] IDCO Episode Date Time [id number] IDCO Episode Type Category Other IDCO Episode Vendor Type Category XANDER IDCO Episode Detection Interval Ventricular 741 ms IDCO Episode Duration 39 s IDCO Episode Detection And Therapy Details IDCO Episode Identifier [id number] IDCO Episode Date Time [id number] IDCO Episode Type Category Other IDCO Episode Vendor Type Category XANDER IDCO Episode Detection Interval Ventricular 1,017 ms IDCO Episode Duration 56 s IDCO Episode Detection And Therapy Details IDCO Episode Identifier [id number] IDCO Episode Date Time [id number] IDCO Episode Type Category Other IDCO Episode [...] E162 IDCO Implantable Pulse Generator Serial Number [id number] IDCO Implantable Pulse Generator Tying Machine Operator Lumber [place] [employer] IDCO Implantable Pulse Generator Implant Date 20140110 IDCO Implantable Lead Model 4136 IDCO Implantable Lead Serial Number [id number] IDCO Implantable Lead Tying Machine Operator Lumber Guidant IDCO Implantable Lead Implant Date 20130421 IDCO Implantable Lead Polarity Type Bipolar Lead IDCO Implantable Lead Location Right Atrium IDCO Implantable Lead Model 0292 IDCO Implantable Lead Serial Number [id number] IDCO Implantable Lead Tying Machine Operator Lumber [place] [employer] IDCO Implantable Lead Implant Date IDCO [...] IDCO Lead Channel Pacing Threshold Measurement Method Manager Audit Manual IDCO Lead Channel Pacing Threshold Polarity [...] IDCO Lead Channel Pacing Threshold Measurement Method Manager Audit Manual IDCO Lead Channel Pacing Threshold Polarity [...] on filedocumented in this encounter Care Teams Boiler Technician Relationship Specialty Start Date End Date Dewayne Carrington MD PCP - General 09/02/16 documented as of this encounter
--- OUTSIDE RECORDS SUMMARY | 2024-04-19 15:23 | XMS_ITS | Encounter Summary ---
Author Organization [facility] Address [facility] [place] [address] Care Team Providers Care Cast Iron Drain Pipe Layer Name Role Phone Dewayne Carrington MD Primary Care Provider [phone] Encounter Details Date Type Department Care Team (Latest Contact Info) Description 12/27/2020 3:04 PM EDT - 12/27/2020 11:59 PM EDT Hospital Encounter Non-[place]vasive [place] [address] Shaheen Molina MD [facility] [place] [address] V-tach Discharge Disposition: Home Social History Tobacco [...] AM EST Hospital Encounter Non-[place] [address] Arrived documented as of this [...] tachycardia documented in this encounter Care Teams Cast Iron Drain Pipe Layer Relationship Specialty Start Date End Date Dewayne Carrington MD PCP - General 09/02/16 documented as of this encounter
--- OUTSIDE RECORDS SUMMARY | 2024-04-19 15:23 | XMS_ITS | Encounter Summary ---
Author Organization [facility] Address [facility] [place] [address] Care Team Providers Care Waste Water Treatment Plant Operator Name Role Phone Dewayne Carrington MD Primary Care Provider [phone] Encounter Details Date Type Department Care Team ([facility] st Contact Info) Description 12/12/2020 10:40 AM EDT Office Visit Cardiology at [address] [phone] Fantasma Matos MD [facility] [place] [address] [place] [address] Sustained VT (ventricular tachycardia); Persistent atrial fibrillation; [...] a new prescriptions to [facility]) Continue metoprolol succinate 100 mg TWICE a day I will arrange for you to follow up w/ my gustavo Molina at [facility] documented in this encounter Progress Notes * Fantasma Matos MD - 12/12/2020 10:40 AM EDT Cardiac Electrophysiology Marquez Hendrix Is a 70 yo man from [facility] with ischemic cardiomyopathy who was seen in Cardiac Electrophysiology clinic in follow-up for sustained VT. He is known to me from a cardioversion for persistent AF performed in October 2020. His [id number] is >>1 and he is appropriately anticpagulated on Xarelto. He has a dual-chamber [employer] ICD, and has had both successful and unsuccessful ATP in the past. On or around 11/28/20 he was seen at [facility] feeling suddenly poorly and was found to [...] LFTs. ? Fatty liver. Raising concerns re: shelter amiodarone. Patient Active Problem List Diagnosis Code [...] therapy will help maintain 2) AF / [id number] = at least 4 for age >64 [...] convenience, EP follow-up w/ Dr. Molina at [facility] where patient hasmet this provider previously. He may elect to reduce amiodarone down to 200 mg daily at his discretion. Patient indicated understanding of and agreement w/ the immediate plans as outlined above. Continued remote monitoring will be useful. Fantasma Matos MD, PhD, [facility] Cardiac Electrophysiology documented in this encounter Plan of Treatment Upcoming Encounters Date Type Department Care Team (Late st Contact Info) Description 06/15/2024 10:00 AM EST Hospital Encounter Non-In[place] [address] Arrived documented as of this encounter Procedures Procedure Name Priority Date/Time Associated Diagnosis Comments HC THYROID STIMULATING HORMONE, SERUM Routine 12/12/2020 12:12 PM EDT Sustained VT (ventricular tachycardia) HEPATIC FUNCTION PANEL Routine 12/12/2020 12:12 PM EDT Sustained VT (ventricular tachycardia) EKG 12-LEAD Routine 12/12/2020 10:44 AM EDT Sustained VT (ventricular tachycardia) documented in this encounter Results * TSH (12/12/2020 12:12 PM EDT) Thyroid Stimulating Hormone 0.93 0.27 - 4.20 mcIU/mL [facility] Comment: Reference Interval (mcIU/mL): Females: ??First Trimester: 0.23-3.88 ??Second Trimester: 0.22-3.90 ??Third Trimester: 0.44-4.66 Blood 12/12/2020 12:1 2 PM EDT 12/12/2020 12:19 PM EDT Narrative Resulting Agency Comment Spec In Lab Fantamsa Matos MD CHEMISTRY ORDERABLES Performing Organization Address City/[facility]/ZIP Co de Phone Number [facility] [place] [address] * (ABNORMAL) Hepatic Function Panel (12/12/2020 12:12 PM EDT) [facility] Protein, Total 7.5 6.1 - 8.0 gm/dL [facility] Albumin 4.7 3.2 - 5.2 gm/dL [facility] Aspartate Aminotransferase 57(H) 0 - 39 unit/L [facility] Alanine Aminotransferase 57(H) 0 - 55 unit/L [facility] Alkaline Phosphatase 83 40 - 130 unit/L [facility] Bilirubin, Total 0.5 0.2 - 1.3 mg/dL [facility] Bilirubin, Direct 0.2 0.0 - 0.3 mg/dL [facility] Blood 12/12/2020 12:1 2 PM EDT 12/12/2020 12:19 PM EDT Narrative Resulting Agency Comment Spec In Lab Fantasma Matos MD CHEMISTRY ORDERABLES Performing Organization Address [facility] Co de Phone Number [facility] [place] [address] * EKG 12 Lead (12/12/2020 10:44 AM EDT) Pathologist [facility] Ventricular rate 55 BPM MUSE SYSTEM Atrial Rate 55 BPM MUSE SYSTEM P-R Interval 290 ms MUSE SYSTEM QRS Duration 130 ms MUSE SYSTEM Q-T Interval 494 ms MUSE SYSTEM QTC Calculated (Bezet) 472 ms MUSE SYSTEM Calculated R [place] -67 degrees MUSE SYSTEM INTERPRETATION Atrial-paced rhythm [...] disease documented in this encounter Care Teams Waste Water Treatment Plant Operator Relationship Specialty Start Date End Date Dewayne Carrington MD PCP - General 09/02/16 documented as of this encounter
--- OUTSIDE RECORDS SUMMARY | 2024-04-19 15:23 | XMS_ITS | Encounter Summary ---
[place] [address] Care Team Providers Care Animal Husbandry Professor Name Role Phone Dewayne Carrington MD Primary Care Provider [phone] Encounter Details Date Type Department Care Team (Late st Contact Info) Description 09/17/2021 Orders Only Cardiology at [address] [address] Social History Tobacco Use Types Packs/Day Years [...] AM EST Hospital Encounter Non-[place]vasive [place] [address] Arrived documented as of this encounter Procedures Procedure Name Priority Date/Time Associated Diagnosis Comments CARDIAC DEVICE CHECK - REMOTE Routine 09/17/2021 11:35 AM EDT documented in this encounter Results * Cardiac Device Check - Remote (09/17/2021 11:35 AM EDT) Date Time Interrogation Session IDCO Type Interrogation Session Remote IDCO Clinic Name [facility] IDCO Battery Date Time of Measurements [...] Capacitor Charge Type Shock IDCO Episode Identifier [id number] IDCO Episode Date Time IDCO Episode Type Category Other IDCO Episode Vendor Type Category XANDER IDCO Episode Detection Interval Ventricular 1,071 ms IDCO Episode Duration 59 s IDCO Episode Detection And Therapy Details IDCO Episode Identifier -[id number] IDCO Episode Date Time IDCO Episode Type Category Other IDCO Episode Vendor Type Category XANDER IDCO Episode Detection Interval Ventricular 909 ms IDCO Episode Duration 51 s IDCO Episode Detection And Therapy Details IDCO Episode Identifier -[id number] IDCO Episode Date Time IDCO Episode Type Category Other IDCO Episode Vendor Type Category XANDER IDCO Episode Detection Interval Ventricular 923 ms IDCO Episode Duration 53 s IDCO Episode Detection And Therapy Details IDCO Episode Identifier -[id number] IDCO Episode Date Time IDCO Episode Type Category Other IDCO Episode Vendor Type Category XANDER IDCO Episode Detection Interval Ventricular 1,277 ms IDCO Episode Duration 60 s IDCO Episode Detection And Therapy Details IDCO Episode Identifier -[id number] IDCO Episode Date Time IDCO Episode Type Category Other IDCO Episode Vendor Type Category XANDER IDCO Episode Detection Interval Ventricular 952 ms IDCO Episode Duration 57 s IDCO Episode Detection And Therapy Details IDCO Episode Identifier -[id number] IDCO Episode Date Time IDCO Episode Type Category Other IDCO Episode Vendor Type Category XANDER IDCO Episode Detection Interval Ventricular 1,000 ms IDCO Episode Duration 60 s IDCO Episode Detection And Therapy Details IDCO Episode Identifier -[id number] IDCO Episode Date Time IDCO Episode Type Category Other IDCO Episode Vendor Type Category XANDER IDCO Episode Detection Interval Ventricular 1,364 ms IDCO Episode Duration 1,669 s IDCO Episode Detection And Therapy Details Q IDCO Episode Identifier [id number] IDCO Episode Date Time IDCO Episode Type Category Other IDCO Episode Vendor Type Category XANDER IDCO Episode Detection Interval Ventricular 938 ms IDCO Episode Duration 55 s IDCO Episode Detection And Therapy Details IDCO Episode Identifier [id number] IDCO Episode Date Time IDCO Episode Type Category Other IDCO Episode Vendor Type Category XANDER IDCO Episode Detection Interval Ventricular 1,132 ms IDCO Episode Duration 53 s IDCO Episode Detection And Therapy Details IDCO Episode Identifier [id number] IDCO Episode Date Time IDCO Episode Type [...] E162 IDCO Implantable Pulse Generator Serial Number [id number] IDCO Implantable Pulse Generator Mri Assistant [employer] IDCO Implantable Pulse Generator Implant Date 20140110 IDCO Implantable Lead Model 4136 IDCO Implantable Lead Serial Number [id number] IDCO Implantable Lead Mri Assistant Guidant IDCO Implantable Lead Implant Date 20130421 IDCO Implantable Lead Polarity Type Bipolar Lead IDCO Implantable Lead Location Right Atrium IDCO Implantable Lead Model 0292 IDCO Implantable Lead Serial Number [id number] IDCO Implantable Lead Mri Assistant [employer] IDCO Implantable Lead Implant Date IDCO [...] IDCO Lead Channel Pacing Threshold Measurement Method Street Light Servicer Helper Manual IDCO Lead Channel Pacing Threshold Polarity [...] IDCO Lead Channel Pacing Threshold Measurement Method Street Light Servicer Helper Manual IDCO Lead Channel Pacing Threshold Polarity Bipolar IDCO Lead Channel Impedance Value 605 ohms IDCO Lead Channel Impedance Polarity Bipolar IDCO Lead High Voltage Channel Date Time [id number] IDCO Lead High Voltage Channel Impedance 92 ohms IDCO Lead High Voltage Channel Measurement Type Low Voltage Pulse IDCO Statistic Date Time Start 20210807 IDCO Statistic Date Time End [id number] IDCO [place] Statistic Date Time Start [id number] [...] on filedocumented in this encounter Care Teams Animal Husbandry Professor Relationship Specialty Start Date End Date Dewayne Carrington MD PCP - General 09/02/16 documented as of this encounter
--- OUTSIDE RECORDS SUMMARY | 2024-04-19 15:23 | XMS_ITS | Encounter Summary ---
Author Organization [facility] Address [facility] [place] [address] Care Team Providers Care Furnace Operator And Tender Name Role Phone Dewayne Carrington MD Primary Care Provider [phone] Encounter Details Date Type Department Care Team ([facility] st Contact Info) Description 12/03/2020 Notes Only Cardiology at [address] [address] Edy Torres PA [facility] [address] Social History Tobacco Use Types Packs/Day Years [...] Monitoring Interpretation ?? Transmission Date: 12/01/2020 Device Litigation Support Analyst and Type: [employer] dual lead ICD Battery Status: good; [...] success ?? Impression: Normally functioning dual lead [employer] ICD Hx of PAF, anticoagulated with xarelto ; most recent [place]CC[place] at [facility] on [place]/24/2020 Hx of NSVT and VT - most recently seen @ [facility] on 11/28(cardioverted and loaded with amiodarone). ATPhas been applied in the past with variable success. ??Scheduled for outpatient follow up 12/12/2020 [facility] w/Dr. Matos ?? Provider: MAXIMO Leija EP Consult attending physician documented in this encounter Plan of Treatment Upcoming Encounters Date Type Department Care Team (Late st Contact Info) Description 06/15/2024 10:00 AM EST Hospital Encounter Non-Invasive [place] [address] Arrived documented as of this encounter Visit Diagnoses Not on filedocumented in this encounter Care Teams Furnace Operator And Tender Relationship Specialty Start Date End Date Dewayne Carrington MD PCP - General 09/02/16 documented as of this encounter
--- OUTSIDE RECORDS SUMMARY | 2024-04-19 15:23 | XMS_ITS | Encounter Summary ---
[place] [address] Care Team Providers Care Fish Hatchery Inspector Name Role Phone Dewayne Carrington MD Primary Care Provider [phone] Encounter Details Date Type Department Care Team (Late st Contact Info) Description 09/26/2021 Orders Only Cardiology at [address] [address] Social History Tobacco Use Types Packs/Day Years [...] AM EST Hospital Encounter Non-[place] [address] Arrived documented as of this encounter Procedures Procedure Name Priority Date/Time Associated Diagnosis Comments CARDIAC DEVICE CHECK - REMOTE SCHEDULED Routine 09/26/2021 12:42 AM EDT documented in this encounter Results * Cardiac device check - Remote Scheduled (09/26/2021 12:42 AM EDT) Date Time Interrogation Session IDCO Type Interrogation Session Remote Scheduled IDCO Clinic Name [facility] IDCO Battery Date Time of Measurements [...] Therapy Details Presenting EGM IDCO Episode Identifier [id number] IDCO Episode Date Time IDCO Episode Type Category Other IDCO Episode Vendor Type Category XANDER IDCO Episode Detection Interval Ventricular 1,000 ms IDCO Episode Duration 47 s IDCO Episode Detection And Therapy Details IDCO Episode Identifier [id number] IDCO Episode Date Time IDCO Episode Type Category Other IDCO Episode Vendor Type Category XANDER IDCO Episode Detection Interval Ventricular 1,053 ms IDCO Episode Duration 48 s IDCO Episode Detection And Therapy Details IDCO Episode Identifier [id number] IDCO Episode Date Time IDCO Episode Type Category Other IDCO Episode Vendor Type Category XANDER IDCO Episode Detection Interval Ventricular 845 ms IDCO Episode Duration 45 s IDCO Episode Detection And Therapy Details IDCO Episode Identifier [id number] IDCO Episode Date Time IDCO Episode Type Category Other IDCO Episode Vendor Type Category XANDER IDCO Episode Detection Interval Ventricular 1,017 ms IDCO Episode Duration 50 s IDCO Episode Detection And Therapy Details IDCO Episode Identifier -[id number] IDCO Episode Date Time IDCO Episode Type Category Other IDCO Episode Vendor Type Category XANDER IDCO Episode Detection Interval Ventricular 811 ms IDCO Episode Duration 43 s IDCO Episode Detection And Therapy Details IDCO Episode Identifier [id number] IDCO Episode Date Time IDCO Episode Type Category Other IDCO Episode Vendor Type Category XANDER IDCO Episode Detection Interval Ventricular 822 ms IDCO Episode Duration 45 s IDCO Episode Detection And Therapy Details IDCO Episode Identifier [id number] IDCO Episode Date Time IDCO Episode Type Category Other IDCO Episode Vendor Type Category XANDER IDCO Episode Detection Interval Ventricular 896 ms IDCO Episode Duration 47 s IDCO Episode Detection And Therapy Details IDCO Episode Identifier [id number] IDCO Episode Date Time IDCO Episode Type Category Other IDCO Episode Vendor Type Category XANDER IDCO Episode Detection Interval Ventricular 811 ms IDCO Episode Duration 47 s IDCO Episode Detection And Therapy Details IDCO Episode Identifier [id number] IDCO Episode Date Time IDCO Episode Type Category Other IDCO Episode Vendor Type Category XANDER IDCO Episode Detection Interval Ventricular 882 ms IDCO Episode Duration 47 s IDCO Episode Detection And Therapy Details IDCO Episode Identifier [id number] IDCO Episode Date Time IDCO Episode Type [...] E162 IDCO Implantable Pulse Generator Serial Number [id number] IDCO Implantable Pulse Generator Finish Mixer [employer] IDCO Implantable Pulse Generator Implant Date 20140110 IDCO Implantable Lead Model 4136 IDCO Implantable Lead Serial Number [id number] IDCO Implantable Lead Finish Mixer Guidant IDCO Implantable Lead Implant Date 20130421 IDCO Implantable Lead Polarity Type Bipolar Lead IDCO Implantable Lead Location Right Atrium IDCO Implantable Lead Model 0292 IDCO Implantable Lead Serial Number [id number] IDCO Implantable Lead Finish Mixer [employer] IDCO Implantable Lead Implant Date IDCO [...] IDCO Lead Channel Pacing Threshold Measurement Method Talent Program Manager Manual IDCO Lead Channel Pacing Threshold [...] IDCO Lead Channel Pacing Threshold Measurement Method Talent Program Manager Manual IDCO Lead Channel Pacing Threshold Polarity Bipolar IDCO Lead Channel Impedance Value 600 ohms IDCO Lead Channel Impedance Polarity Bipolar IDCO Lead High Voltage Channel Date Time [id number] IDCO Lead High Voltage Channel Impedance 89 ohms IDCO Lead High Voltage Channel Measurement Type Low Voltage Pulse IDCO Statistic Date Time Start [id number] IDCO Statistic Date Time End [id number] IDCO [...] on filedocumented in this encounter Care Teams Fish Hatchery Inspector Relationship Specialty Start Date End Date Dewayne Carrington MD PCP - General 09/02/16 documented as of this encounter
--- OUTSIDE RECORDS SUMMARY | 2024-04-19 15:23 | XMS_ITS | Encounter Summary ---
Author Organization [facility] [place] [address] Care Team Providers Care Assisted Living Executive Director Name Role Phone Dewayne Carrington MD Primary Care Provider [phone] Encounter Details Date Type Department Care Team (Late st Contact Info) Description 12/25/2020 Telephone Cardiology at [address] [address] Yumiko Lopes Social History Tobacco [...] Email sent to Yudi Doyle RN at [facility] asking for 01/09/21 appt to be made with Dr. Molina. Yumiko Lopes EP Scheduling documented in this encounter Plan of Treatment Upcoming Encounters Date Type Department Care Team (Late st Contact Info) Description 06/15/2024 10:00 AM EST Hospital Encounter Non-[place] [address] Arrived documented as of this encounter Visit Diagnoses Not on filedocumented in this encounter Care Teams Assisted Living Executive Director Relationship Specialty Start Date End Date Dewayne Carrington MD PCP - General 09/02/16 documented as of this encounter
--- OUTSIDE RECORDS SUMMARY | 2024-04-19 15:23 | XMS_ITS | Encounter Summary ---
[place] [address] Care Team Providers Care Log Yard Manager Name Role Phone Dewayne Carrington MD Primary Care Provider Encounter Details Date Type Department Care Team (Late st Contact Info) Description 06/27/2021 Orders Only Cardiology at [address] [address] Social History Tobacco Use Types Packs/Day Years [...] AM EST Hospital Encounter [place] [address] Arrived documented as of this encounter Procedures Procedure Name Priority Date/Time Associated Diagnosis Comments CARDIAC DEVICE CHECK - REMOTE SCHEDULED Routine 06/27/2021 12:41 AM EST documented in this encounter Results * Cardiac device check - Remote Scheduled (06/27/2021 12:41 AM EST) Date Time Interrogation Session IDCO Type Interrogation Session Remote Scheduled IDCO Clinic Name [facility] IDCO Battery Date Time of [...] Therapy Details Presenting EGM IDCO Episode Identifier [id number] IDCO Episode Date Time IDCO Episode Type Category Other IDCO Episode Vendor Type Category XANDER IDCO Episode Detection Interval Ventricular 909 ms IDCO Episode Duration 53 s IDCO Episode Detection And Therapy Details IDCO Episode Identifier [id number] IDCO Episode Date Time IDCO Episode Type Category Other IDCO Episode Vendor Type Category XANDER IDCO Episode Detection Interval Ventricular 923 ms IDCO Episode Duration 54 s IDCO Episode Detection And Therapy Details IDCO Episode Identifier [id number] IDCO Episode Date Time IDCO Episode Type Category Other IDCO Episode Vendor Type Category XANDER IDCO Episode Detection Interval Ventricular 923 ms IDCO Episode Duration 53 s IDCO Episode Detection And Therapy Details IDCO Episode Identifier [id number] IDCO Episode Date Time IDCO Episode Type Category Other IDCO Episode Vendor Type Category XANDER IDCO Episode Detection Interval Ventricular 923 ms IDCO Episode Duration 139 s IDCO Episode Detection And Therapy Details IDCO Episode Identifier [id number] IDCO Episode Date Time IDCO Episode Type Category Other IDCO Episode Vendor Type Category XANDER IDCO Episode Detection Interval Ventricular 938 ms IDCO Episode Duration 110 s IDCO Episode Detection And Therapy Details IDCO Episode Identifier [id number] IDCO Episode Date Time IDCO Episode Type Category Other IDCO Episode Vendor Type Category XANDER IDCO Episode Detection Interval Ventricular 938 ms IDCO Episode Duration 56 s IDCO Episode Detection And Therapy Details IDCO Episode Identifier [id number] IDCO Episode Date Time IDCO Episode Type Category Other IDCO Episode Vendor Type Category XANDER IDCO Episode Detection Interval Ventricular 952 ms IDCO Episode Duration 58 s IDCO Episode Detection And Therapy Details IDCO Episode Identifier [id number] IDCO Episode Date Time IDCO Episode Type Category Other IDCO Episode Vendor Type Category XANDER IDCO Episode Detection Interval Ventricular 952 ms IDCO Episode Duration 56 s IDCO Episode Detection And Therapy Details IDCO Episode Identifier [id number] IDCO Episode Date Time IDCO Episode Type Category Other IDCO Episode Vendor Type Category XANDER IDCO Episode Detection Interval Ventricular 952 ms IDCO Episode Duration 57 s IDCO Episode Detection And Therapy Details IDCO Episode Identifier [id number] IDCO Episode Date Time IDCO Episode Type [...] E162 IDCO Implantable Pulse Generator Serial Number [id number] IDCO Implantable Pulse Generator Comfort Station Attendant Spicer Scientific IDCO Implantable Pulse Generator Implant Date 20140110 IDCO Implantable Lead Model 4136 IDCO Implantable Lead Serial Number [id number] IDCO Implantable Lead Comfort Station Attendant Guidant IDCO Implantable Lead Implant Date 20130421 IDCO Implantable Lead Polarity Type Bipolar Lead IDCO Implantable Lead Location Right Atrium IDCO Implantable Lead Model 0292 IDCO Implantable Lead Serial Number [id number] IDCO Implantable Lead Comfort Station Attendant Spicer Scientific IDCO Implantable Lead Implant Date IDCO [...] IDCO Lead Channel Pacing Threshold Measurement Method Dredge Mechanic Manual IDCO Lead Channel Pacing Threshold [...] IDCO Lead Channel Pacing Threshold Measurement Method Dredge Mechanic Manual IDCO Lead Channel Pacing Threshold [...] on filedocumented in this encounter Care Teams Log Yard Manager Relationship Specialty Start Date End Date Dewayne Carrington MD PCP - General 09/02/16 documented as of this encounter
--- OUTSIDE RECORDS SUMMARY | 2024-04-19 15:23 | XMS_ITS | Encounter Summary ---
Author Organization [facility] Address [facility] [place] [address] Care Team Providers Care Roofing Sales Representative Name Role Phone Dewayne Carrington MD Primary Care Provider [phone] Encounter Details Date Type Department Care Team (Latest Contact Info) Description 06/27/2021 2:16 PM EST - 06/27/2021 11:59 PM EST Hospital Encounter Non-Invasive [place] [address] Shaheen Molina MD [facility] [place] [address] V-tach Discharge Disposition: Home Social History Tobacco [...] AM EST Hospital Encounter Non-[place] [address] Arrived documented as of this [...] tachycardia documented in this encounter Care Teams Roofing Sales Representative Relationship Specialty Start Date End Date Dewayne Carrington MD PCP - General 09/02/16 documented as of this encounter
--- OUTSIDE RECORDS SUMMARY | 2024-04-19 15:23 | XMS_ITS | Encounter Summary ---
Author Organization [facility] Address [facility] [place] [address] Care Team Providers Care Chocolate Production Machine Operator Name Role Phone Dewayne Carrington MD Primary Care Provider [phone] Encounter Details Date Type Department Care Team (Latest Contact Info) Description 03/28/2021 12:11 PM EST - 03/28/2021 11:59 PM EST Hospital Encounter Non[place] [address] Ta Negron MD [facility] [place] [address] Ventricular tachycardia Discharge Disposition: Home Social History [...] AM EST Hospital Encounter Non-[place] [address] Arrived documented as of this encounter Procedures Procedure Name Priority Date/Time Associated Diagnosis Comments ICD INTERROGATION 3 MONTH Routine 03/28/2021 12:11 PM EST Ventricular tachycardia documented in this encounter Results * ICD INTERROGATION 3 MONTH (03/28/2021 12:11 PM EST) Anatomical Region Laterality Modality Other Narrative 03/29/2021 4:43 PM EST Cardiac Device Remote Monitoring Report Summary [employer] Latitude Device: ICD Model: INCEPTA Battery: Beginning of service, remaining longevity 4 years Pacing percentage: Minimal ventricular pacing Events: Presenting rhythm: Atrial sensed/ventricular sensed No significant arrhythmias Impression Normal device function Follow Up As per schedule - in-clinic and remote TA NEGRON MD 03/29/21 aT Negron MD IMPLANTABLE CARDIAC DEVICE documented in this encounter Visit Diagnoses Diagnosis Ventricular tachycardia Paroxysmal ventricular tachycardia documented in this encounter Care Teams Chocolate Production Machine Operator Relationship Specialty Start Date End Date Dewayne Carrington MD PCP - General 09/02/16 documented as of this encounter
--- OUTSIDE RECORDS SUMMARY | 2024-04-19 15:23 | XMS_ITS | Encounter Summary ---
[place] [address] Care Team Providers Care Craft Demonstrator Name Role Phone Dewayne Carrington MD Primary Care Provider [phone] Encounter Details Date Type Department Care Team (Late st Contact Info) Description 12/07/2020 Orders Only Cardiology at [address] [address] Sita Myers RN Sustained VT (ventricular tachycardia) [...] AM EST Hospital Encounter Non-[place] [address] Arrived documented as of this encounter Visit Diagnoses Diagnosis Sustained VT (ventricular tachycardia) Paroxysmal ventricular tachycardia documented in this encounter Care Teams Craft Demonstrator Relationship Specialty Start Date End Date Dewayne Carrington MD PCP - General 09/02/16 documented as of this encounter
--- OUTSIDE RECORDS SUMMARY | 2024-04-19 15:23 | XMS_ITS | Encounter Summary ---
Author Organization [facility] [place] [address] Care Team Providers Care Rn Dermatology Name Role Phone Dewayne Carrington MD Primary Care Provider [phone] Reason for Visit * Auth/Cert Specialty Diagnoses / Procedures Referred By Rosa t Referred To Contact Diagnoses persistent atrial fibrillation Procedures PRO CARDIOVERSION ELECTIVE ARRHYTHMIA EXTERNAL CARDIOVERSION-ELECTIVE (WRVU 2.25) Referral ID Status Reason Start Date Expiration Date Visits Re quested Visits Authorized [id number] 1 1 Encounter Details Date Type Department Care Team (Latest Contact Info) Description 10/23/2020 8:50 AM EDT Laboratory Appointment Lab [address] [place] [phone] Persistent atrial fibrillation Social History Tobacco Use [...] AM EST Hospital Encounter Non-[place] [phone] Arrived documented as of this encounter Procedures Procedure Name Priority Date/Time Associated Diagnosis Comments HC MAGNESIUM, SERUM Routine 10/23/2020 9:05 AM EDT Persistent atrial fibrillation BASIC METABOLIC PANEL Routine 10/23/2020 9:05 AM EDT Persistent atrial fibrillation documented in this encounter Results * (ABNORMAL) Basic Metabolic Panel (non-fasting) (10/23/2020 9:05 AM EDT) Glucose 263(H) 65 - 199 mg/dL [facility] Comment:Diabetes: >=200 mg/d L plus symptoms Blood Urea Nitrogen 25(H) 10 - 20 mg/dL [facility] Creatinine 0.90 0.80 - 1.50 mg/dL [facility] Sodium 141 135 - 145 mmol/L [facility] Potassium 4.5 3.5 - 5.0 mmol/L [facility] Comment: Please note: ??Patients with WBC >100,000 may have falsely elevated Potassium levels. ??For accurate Potassium quantification in these patients send serum separator tube (gold top) for subsequent determinations. ??Contact the Clinical Chemistry Laboratory if there are any questions. Chloride 104 98 - 107 mmol/L [facility] Carbon Dioxide 27 22 - 31 mmol/L [facility] Anion Gap 10 5 - 15 mmol/L [facility] Calcium 9.5 8.5 - 10.5 mg/dL [facility] Est Glomerular Filtration Rate 86 >=60 mL/min/1. 73 m?? [facility] Comment: This patient? s estimated [...] Daly MD CHEMISTRY ORDERABLES Performing Organization Address [facility] Co de Phone Number [facility] [place] [address] * Magnesium (10/23/2020 9:05 AM EDT) Magnesium 0.81 0.69 - 1.07 mmol/L [facility] Blood 10/23/2020 9:05 AM EDT 10/23/2020 9:09 AM EDT Narrative Resulting Agency Comment Spec In Lab Irena Daly MD CHEMISTRY ORDERABLES Performing Organization Address [facility] Co de Phone Number [facility] [place] [address] documented in this encounter Visit Diagnoses Diagnosis Persistent atrial fibrillation Atrial fibrillation documented in this encounter Care Teams Rn Dermatology Relationship Specialty Start Date End Date Dewayne Carrington MD PCP - General 09/02/16 documented as of this encounter
--- OUTSIDE RECORDS SUMMARY | 2024-04-19 15:23 | XMS_ITS | Encounter Summary ---
Author Organization [facility] Address [facility] [place] [address] Care Team Providers Care Purchasing Officer Name Role Phone Dewayne Carrington MD Primary Care Provider [phone] Encounter Details Date Type Department Care Team (Late st Contact Info) Description 12/28/2020 Notes Only Cardiology at [address] [phone] Shaheen Molina MD [facility] [place] [place] [address] Social History Tobacco Use Types Packs/Day Years [...] preserved LVEF, RCA and LAD disease. Inferior IL on EKG, inferior WMA on echo. VT at 150 bpm, appears to be coming from cardiac crux. No significant femoral arterial disease or aortic stenosis. Shaheen Molina MD [facility]iac [facility] 12/28/2020 4:06 PM documented in this encounter Plan of Treatment Upcoming Encounters Date Type Department Care Team (Late st Contact Info) Description 06/15/2024 10:00 AM EST Hospital Encounter [place] [address] Arrived documented as of this encounter Visit Diagnoses Not on filedocumented in this encounter Care Teams Purchasing Officer Relationship Specialty Start Date End Date Dewayne Carrington MD PCP - General 09/02/16 documented as of this encounter
--- OUTSIDE RECORDS SUMMARY | 2024-04-19 15:23 | XMS_ITS | Encounter Summary ---
[place] [address] Care Team Providers Care Petroleum Geologist Name Role Phone Dewayne Carrington MD Primary Care Provider [phone] Encounter Details Date Type Department Care Team (Late st Contact Info) Description 12/01/2020 Orders Only Cardiology at [address] [address] Social History Tobacco Use Types Packs/Day Years [...] AM EST Hospital Encounter [place] [address] Arrived documented as of this encounter Procedures Procedure Name Priority Date/Time Associated Diagnosis Comments CARDIAC DEVICE CHECK - REMOTE DEVICE INITIATED Routine 12/01/2020 12:42 AM EDT documented in this encounter Results * Cardiac device check - Remote Device Initiated (12/01/2020 12:42 AM EDT) Date Time Interrogation Session IDCO Type Interrogation Session Remote Device Initiated IDCO Clinic Name [facility] IDCO Battery Date Time of Measurements IDCO Battery Status Beginning of Service IDCO Battery Remaining Longevity 48 mo IDCO Battery Remaining Percentage 56 % IDCO Capacitor Last Charge Date Time IDCO Capacitor Charge Time 11.3 s IDCO Capacitor Charge Type Reformation IDCO Capacitor Last Charge Date Time [id number] IDCO Capacitor Charge Time 3.8 s IDCO Capacitor Charge Energy 21 J IDCO Capacitor Charge Type Shock IDCO Episode Identifier [id number] IDCO Episode Date Time IDCO Episode Type Category Periodic EGM IDCO Episode Vendor Type Category APMRT IDCO Episode Detection And Therapy Details Presenting EGM IDCO Episode Identifier V-7 IDCO Episode Date [...] And Therapy Details NonSustV IDCO Episode Identifier [id number] IDCO Episode Date Time IDCO Episode Type [...] And Therapy Details NonSustV IDCO Episode Identifier V-2 IDCO Episode Date Time IDCO Episode Type [...] And Therapy Details NonSustV IDCO Episode Identifier -[id number] IDCO Episode Date Time IDCO Episode Type [...] And Therapy Details NonSustV IDCO Episode Identifier -[id number] IDCO Episode Date Time IDCO Episode Type [...] E162 IDCO Implantable Pulse Generator Serial Number [id number] IDCO Implantable Pulse Generator Time Clock Inspector [employer] IDCO Implantable Pulse Generator Implant Date 20140110 IDCO Implantable Lead Model 4136 IDCO Implantable Lead Serial Number [id number] IDCO Implantable Lead Time Clock Inspector Guidant IDCO Implantable Lead Implant Date 20130421 IDCO Implantable Lead Polarity Type Bipolar Lead IDCO Implantable Lead Location Right Atrium IDCO Implantable Lead Model 0292 IDCO Implantable Lead Serial Number [id number] IDCO Implantable Lead Time Clock Inspector [employer] IDCO Implantable Lead Implant Date IDCO [...] IDCO Lead Channel Pacing Threshold Measurement Method Beef Breaker Manual IDCO Lead Channel Pacing Threshold Polarity [...] IDCO Lead Channel Pacing Threshold Measurement Method Beef Breaker Manual IDCO Lead Channel Pacing Threshold Polarity Bipolar IDCO Lead Channel Impedance Value 613 ohms IDCO Lead Channel Impedance Polarity Bipolar IDCO Lead High Voltage Channel Date Time 20201130 IDCO Lead High Voltage Channel Impedance 90 ohms IDCO Lead High Voltage Channel Measurement Type Low Voltage Pulse IDCO Statistic Date Time Start 20201023 IDCO Statistic Date Time End 20201201 IDCO [place]baro Statistic Date Time Start 20201023 [...] on filedocumented in this encounter Care Teams Petroleum Geologist Relationship Specialty Start Date End Date Dewayne Carrington MD PCP - General 09/02/16 documented as of this encounter
--- OUTSIDE RECORDS SUMMARY | 2024-04-19 15:23 | XMS_ITS | Encounter Summary ---
[place] [address] Care Team Providers Care Sharepoint Specialist Name Role Phone Dewayne Carrington MD Primary Care Provider [phone] Encounter Details Date Type Department Care Team (Late st Contact Info) Description 03/28/2021 Orders Only Cardiology at [address] [phone] Social History Tobacco Use Types Packs/Day Years [...] AM EST Hospital Encounter Non-[place] [address] Arrived documented as of this encounter Procedures Procedure Name Priority Date/Time Associated Diagnosis Comments CARDIAC DEVICE CHECK - REMOTE SCHEDULED Routine 03/28/2021 11:18 AM EST documented in this encounter Results * Cardiac device check - Remote Scheduled (03/28/2021 11:18 AM EST) Date Time Interrogation Session IDCO Type Interrogation Session Remote Scheduled IDCO Clinic Name [facility] IDCO Battery Date Time of Measurements [...] Therapy Details Presenting EGM IDCO Episode Identifier [id number] IDCO Episode Date Time IDCO Episode Type Category Other IDCO Episode Vendor Type Category XANDER IDCO Episode Detection Interval Ventricular 1,154 ms IDCO Episode Duration 53 s IDCO Episode Detection And Therapy Details [facility]ifier [id number] IDCO Episode Date Time IDCO Episode Type Category Other IDCO Episode Vendor Type Category XANDER IDCO Episode Detection Interval Ventricular 984 ms IDCO Episode Duration 174 s IDCO Episode Detection And Therapy Details IDCO Episode Identifier [id number] IDCO Episode Date Time IDCO Episode Type Category Other IDCO Episode Vendor Type Category XANDER IDCO Episode Detection Interval Ventricular 1,000 ms IDCO Episode Duration 60 s IDCO Episode Detection And Therapy Details IDCO Episode Identifier [id number] IDCO Episode Date Time IDCO Episode Type Category Other IDCO Episode Vendor Type Category XANDER IDCO Episode Detection Interval Ventricular 984 ms IDCO Episode Duration 58 s IDCO Episode Detection And Therapy Details IDCO Episode Identifier [id number] IDCO Episode Date Time IDCO Episode Type Category Other IDCO Episode Vendor Type Category XANDER IDCO Episode Detection Interval Ventricular 984 ms IDCO Episode Duration 59 s IDCO Episode Detection And Therapy Details IDCO Episode Identifier [id number] IDCO Episode Date Time IDCO Episode Type Category Other IDCO Episode Vendor Type Category XANDER IDCO Episode Detection Interval Ventricular 984 ms IDCO Episode Duration 59 s IDCO Episode Detection And Therapy Details IDCO Episode Identifier [id number] IDCO Episode Date Time IDCO Episode Type Category Other IDCO Episode Vendor Type Category XANDER IDCO Episode Detection Interval Ventricular 1,053 ms IDCO Episode Duration 63 s IDCO Episode Detection And Therapy Details IDCO Episode Identifier [id number] IDCO Episode Date Time IDCO Episode Type [...] E162 IDCO Implantable Pulse Generator Serial Number [id number] IDCO Implantable Pulse Generator Power Regulator [place] [employer] IDCO Implantable Pulse Generator Implant Date 20140110 IDCO Implantable Lead Model 4136 IDCO Implantable Lead Serial Number [id number] IDCO Implantable Lead Power Regulator Guidant IDCO Implantable Lead Implant Date 20130421 IDCO Implantable Lead Polarity Type Bipolar Lead IDCO Implantable Lead Location Right Atrium IDCO Implantable Lead Model 0292 IDCO Implantable Lead Serial Number [id number] IDCO Implantable Lead Power Regulator [employer] IDCO Implantable Lead Implant Date IDCO [...] on filedocumented in this encounter Care Teams Sharepoint Specialist Relationship Specialty Start Date End Date Dewayne Carrington MD PCP - General 09/02/16 documented as of this encounter
--- OUTSIDE RECORDS SUMMARY | 2024-04-19 15:23 | XMS_ITS | Encounter Summary ---
[place] [address] Care Team Providers Care Dairy Frozen Manager Name Role Phone Dewayne Carrington MD Primary Care Provider [phone] Encounter Details Date Type Department Care Team (Late st Contact Info) Description 12/27/2020 Orders Only Cardiology at [address] [address] Social History Tobacco Use Types Packs/Day Years [...] AM EST Hospital Encounter Non-Invasive [place] [address] Arrived documented as of this encounter Procedures Procedure Name Priority Date/Time Associated Diagnosis Comments CARDIAC DEVICE CHECK - REMOTE SCHEDULED Routine 12/27/2020 12:41 AM EDT documented in this encounter Results * Cardiac device check - Remote Scheduled (12/27/2020 12:41 AM EDT) Date Time Interrogation Session IDCO Type Interrogation Session Remote Scheduled IDCO Clinic Name [facility] IDCO Battery Date Time of Measurements [...] Therapy Details Presenting EGM IDCO Episode Identifier [id number] IDCO Episode Date Time IDCO Episode Type Category Other IDCO Episode Vendor Type Category XANDER IDCO Episode Detection Interval Ventricular 909 ms IDCO Episode Duration 53 s IDCO Episode Detection And Therapy Details IDCO Episode Identifier [id number] IDCO Episode Date Time IDCO Episode Type Category Other IDCO Episode Vendor Type Category XANDER IDCO Episode Detection Interval Ventricular 896 ms IDCO Episode Duration 53 s IDCO Episode Detection And Therapy Details IDCO Episode Identifier [id number] IDCO Episode Date Time IDCO Episode Type Category Other IDCO Episode Vendor Type Category XANDER IDCO Episode Detection Interval Ventricular 882 ms IDCO Episode Duration 51 s IDCO Episode Detection And Therapy Details IDCO Episode Identifier [id number] IDCO Episode Date Time IDCO Episode Type Category Other IDCO Episode Vendor Type Category XANDER IDCO Episode Detection Interval Ventricular 882 ms IDCO Episode Duration 50 s IDCO Episode Detection And Therapy Details IDCO Episode Identifier [id number] IDCO Episode Date Time IDCO Episode Type Category Other IDCO Episode Vendor Type Category XANDER IDCO Episode Detection Interval Ventricular 857 ms IDCO Episode Duration 49 s IDCO Episode Detection And Therapy Details IDCO Episode Identifier [id number] IDCO Episode Date Time IDCO Episode Type Category Other IDCO Episode Vendor Type Category XANDER IDCO Episode Detection Interval Ventricular 769 ms IDCO Episode Duration 42 s IDCO Episode Detection And Therapy Details IDCO Episode Identifier [id number] IDCO Episode Date Time IDCO Episode Type Category Other IDCO Episode Vendor Type Category XANDER IDCO Episode Detection Interval Ventricular 896 ms IDCO Episode Duration 52 s IDCO Episode Detection And Therapy Details IDCO Episode Identifier [id number] IDCO Episode Date Time IDCO Episode Type Category Other IDCO Episode Vendor Type Category XANDER IDCO Episode Detection Interval Ventricular 923 ms IDCO Episode Duration 52 s IDCO Episode Detection And Therapy Details IDCO Episode Identifier [id number] IDCO Episode Date Time IDCO Episode Type Category Other IDCO Episode Vendor Type Category XANDER IDCO Episode Detection Interval Ventricular 896 ms IDCO Episode Duration 53 s IDCO Episode Detection And Therapy Details IDCO Episode Identifier [id number] IDCO Episode Date Time IDCO Episode Type [...] E162 IDCO Implantable Pulse Generator Serial Number [id number] IDCO Implantable Pulse Generator Product Tester [employer] IDCO Implantable Pulse Generator Implant Date 20140110 IDCO Implantable Lead Model 4136 IDCO Implantable Lead Serial Number [id number] IDCO Implantable Lead Product Tester Guidant IDCO Implantable Lead Implant Date 20130421 IDCO Implantable Lead Polarity Type Bipolar Lead IDCO Implantable Lead Location Right Atrium IDCO Implantable Lead Model 0292 IDCO Implantable Lead Serial Number [id number] IDCO Implantable Lead Product Tester [employer] IDCO Implantable Lead Implant Date IDCO [...] IDCO Lead Channel Pacing Threshold Measurement Method Wood Patternmaker Apprentice Manual IDCO Lead Channel Pacing Threshold Polarity [...] IDCO Lead Channel Pacing Threshold Measurement Method Wood Patternmaker Apprentice Manual IDCO Lead Channel Pacing Threshold Polarity [...] on filedocumented in this encounter Care Teams Dairy Frozen Manager Relationship Specialty Start Date End Date Dewayne Carrington MD PCP - General 09/02/16 documented as of this encounter
--- OUTSIDE RECORDS SUMMARY | 2024-04-19 15:23 | XMS_ITS | Encounter Summary ---
Author Organization [facility] Address [facility] [place] [address] Care Team Providers Care Rn Quality Name Role Phone Dewayne Carrington MD Primary Care Provider Encounter Details Date Type Department Care Team (Late st Contact Info) Description 11/27/2020 [place] [phone] Daniela Torres MD Social History Tobacco Use Types Packs/Day Years [...] Miscellaneous Notes * Telephone Encounter - Daniela Trores MD - 11/27/2020 11:13 PM EDT TELEPHONE TRIAGE NOTE Patient Name: Marquez Hendrix Patient Initial contact date: 11/27/2020 Initial contact time: 11:13 PM Referring provider: Dr. Fitzpatrick Patient location: [facility] Past Medical History: HTN CAD: ?? Heart catheterization in [facility] in 2007 with placement of a stent in an unspecified vessel ?? Repeat heart catheterization in 2008 with placement of stents to both the LAD and circumflex ?? Followup heart catheterization in 2008 showing stable results in both vessels ?? Recurrent chest discomfort in a somewhat atypical pattern beginning fall ?? Nuclear stress test at [facility] in [place], [place] May 02, 2013 during which he developed left shoulder and arm discomfort during submaximal exercise on the treadmill and after which he was converted to a pharmacologic test; nuclear imaging showed ejection fraction of 45% with a partially reversible inferior defect ?? Cath [facility] 05/13/2013: normal left main, mild diffuse disease throughout the LAD with an 80% mid stenosis representing a restenosis lesion, mild diffuse disease in the proximal obtuse marginal branch, and mild diffuse disease throughout the right coronary artery; status post 3.0 X 12 mm JON to 80%mid-LAD lesion (in-stent restenosis) ?? Heart catheterization [facility] January 06, 2014 showing normal left main, hazy 50% mid LAD stenosis, mild diffuse disease throughout the circumflex, and moderate diffuse disease in the proximal RCA with a totally occluded distal RCA with brisk flow via bridging collaterals; fractional flow reserveon the LAD 0.85 ?? Nuclear stress test [facility] August 2016 reportedly showing [...] every night without issue. On arrival to [facility], he was found to be in stable VT. He ultimately became hypotensive to the 90s and was cardioverted there. His VT was a rate of 150bpm (EKG in our system). Initial troponin is negative and he denies chest pain and other symptoms with the exception of sudden onset this evening. I reviewed his ICD settings in our chart here at [facility], and he has two VT detection zones. [...] st Contact Info) Description 06/15/2024 10:00 AM [facility] Hospital Encounter Non-Invasive [place] [address] Arrived documented as of this encounter Visit Diagnoses Not on filedocumented in this encounter Care Teams Rn Quality Relationship Specialty Start Date End Date Dewayne Carrington MD PCP - General 09/02/16 documented as of this encounter
--- OUTSIDE RECORDS SUMMARY | 2024-04-19 15:23 | XMS_ITS | Encounter Summary ---
Author Organization [facility] Address [facility] [place] [address] Care Team Providers Care Building Maintenance Engineer Name Role Phone Dewayne Carrington MD Primary Care Provider [phone] Encounter Details Date Type Department Care Team ([facility] st Contact Info) Description 11/28/2020 Telephone Cardiology at [address] [phone] Ania Rosa MD Social History Tobacco Use Types Packs/Day [...] AM EDT Spoke with Dr. Cheng at [facility], patient was admitted yesterday with symptomatic ventricular tachycardia (ECGs scanned in our system). VT rate ws 150bpm, below detection threshold for his device. Patient underwent cardioversion and amiodarone drip. Advised a transition to amiodarone 400mg BID after 24 hours of drip to continue a load and to reachout to [employer] for device reprogramming. Will require f/u in clinic with Dr. Matos. Ania Rosa MD 11/28/2020 documented in this encounter Plan of Treatment Upcoming Encounters Date Type Department Care Team (Late st Contact Info) Description 06/15/2024 10:00 AM EST Hospital Encounter [place] [address] Arrived documented as of this encounter Visit Diagnoses Not on filedocumented in this encounter Care Teams Building Maintenance Engineer Relationship Specialty Start Date End Date Dewayne Carrington MD PCP - General 09/02/16 documented as of this encounter
--- OUTSIDE RECORDS SUMMARY | 2024-04-19 15:23 | XMS_ITS | Encounter Summary ---
[place] [address] Care Team Providers Care Web Portal Developer Name Role Phone Dewayne Carrington MD Primary Care Provider [phone] Encounter Details Date Type Department Care Team (Late st Contact Info) Description 11/27/2020 [place] [address] Social History Tobacco Use Types Packs/Day Years [...] AM EST Hospital Encounter Non-[place] [address] Arrived documented as of this encounter Procedures Procedure Name Priority Date/Time Associated Diagnosis Comments ECG SCAN Routine 11/27/2020 documented in this encounter Results * Scan Doc: ECG (11/27/2020) Historical Provider MD LARIOS MGR SCAN EX T ORDR/RSLT documented in this encounter Visit Diagnoses Not on filedocumented in this encounter Care Teams Web Portal Developer Relationship Specialty Start Date End Date Dewayne Carrington MD PCP - General 09/02/16 documented as of this encounter
--- OUTSIDE RECORDS SUMMARY | 2024-04-19 15:23 | XMS_ITS | Encounter Summary ---
[place] [address] Care Team Providers Care Librarian Specialist Name Role Phone Dewayne Carrington MD Primary Care Provider [phone] Encounter Details Date Type Department Care Team (Late st Contact Info) Description 11/27/2020 [place] [address] Daniela Torres MD Social History Tobacco Use [...] AM EST Hospital Encounter Non-[place] [address] Arrived documented as of this encounter Visit Diagnoses Not on filedocumented in this encounter Care Teams Librarian Specialist Relationship Specialty Start Date End Date Dewayne Carrington MD PCP - General 09/02/16 documented as of this encounter
--- OUTSIDE RECORDS SUMMARY | 2024-04-19 15:23 | XMS_ITS | Encounter Summary ---
Author Organization [facility] Address [facility] [place] [address] Care Team Providers Care Director Of Engineering Name Role Phone Dewayne Carrington MD Primary Care Provider [phone] Reason for Visit * Consultation (Routine) - Specialty Diagnoses / Procedures Referred By Contac t Referred To Contact Gastroenterology Diagnoses Fatty (change of) liver, not elsewhere classified fatty liver- Dewayne Carrington MD [address] [place] [id number] [facility] [address] [address] Referral ID Status Reason Start Date Expiration Date V isits Requested Visits Authorized [id number] Consult, [facility] PCP Updated and/or Approved 09/03/2020 03/02/2021 6 6 Encounter Details Date Type Department Care Team (Late st Contact Info) Description 03/19/2021 2:30 PM EST Office [place] [address] Elsie Cristobal MD [facility] [place] [address] Abnormal liver function test; Fatty [...] not included. 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 [place] [place] V: [phone] Copy: Dewayne Carrington MD [facility] [address] documented in this encounter Procedure Notes * Elsie Cristobal MD - 03/19/2021 2:30 PM ESTAssociated Order(s): FIBROSCAN Procedure(s): FIBROSCAN Pre-Procedure Diagnose(s): Abnormal liver function test; Fatty liver [facility] Liver Fibrosis Assessment Report Indication: Fatty liver Performed by: Elsie Cristobal MD Procedure: Vibration Controlled Transient Elastography (VCTE) or Fibroscan [place] Protocol: Patient's identity, procedure and site were [...] AM EST Hospital Encounter Non-[place] [address] Arrived documented as of this encounter Procedures [...] 3:50 PM EST Abnormal liver function test [id number] Routine 03/19/2021 3 :50 PM EST Abnormal liver function test [facility] SMOOTH MUSCLE AB, SERUM Routine 03/19/2021 3:50 PM EST Abnormal liver function test HC CBC,PLT & AUTO DIFF Routine 3:50 PM EST Abnormal liver function test [facility] ANATITRE (ANDPATTERN) Routine 03/19/2021 3:50 PM EST Abnormal liver function test COMPREHENSIVE METABOLIC PANEL Routine 03/19/2021 3:50 PM EST Abnormal liver function test [id number] Routine 03/19/2021 2:30 PM EST Abnormal liver function test Fatty liver documented in this encounter Results * (ABNORMAL) Differential, Automated (03/19/2021 3:50 PM EST) Pathologist [facility] Neutrophil % 61.4 % [facility] Neutrophil Absolute 4.80 1.70 - 6.10 x10(3)/mc L [facility] Lymph % 25.7 % [facility] Lymphocytes Abs 2.0 0.9 - 3.2 x10(3)/mc L [facility] Monocyte % 6.3 % [facility] Monocyte Abs 0.5 0.3 - 0.9 x10(3)/mc L [facility] Eos % 5.4 % [facility] Eosinophils Abs 0.4 0.0 - 0.4 x10(3)/[facility] Basophil % 0.6 % [facility] Baso Absolute 0.0 0.0 - 0.1 x10(3)/mc L [facility] Immature Gran % 0.60 % [facility] Comment: Immature granulocytes(IG's)percentage and absolute count will include metamyelocytes, myelocytes, and promyelocytes. Blood smears from CBCs yielding IG's will be scanned manually for concordance. If this scan disagrees with the automated IG or if promyelocytes are noted, a manual differential will be performed. Immature Gran Absolute 0.05(H) 0.00 - 0.04 x10(3)/mc L [facility] Blood 03/19/2021 3:50 PM EST 03/19/2021 4:21 PM EST Narrative Resulting Agency Comment Spec In Lab Elsie Cristobal MD HEMATOLOGY ORDERABLE S [facility] [place] [address] * (ABNORMAL) Hemogram (03/19/2021 3:50 PM EST) [facility] White Blood Cell 7.8 4.0 - 9.5 x10(3)/ L [facility] Red Blood Cell 4.89 4.58 - 5.54 x10(6)/ L [facility] Hemoglobin 15.1 13.7 - 16.5 g/dL [facility] Hematocrit 44.6 40.5 - 48.5 % [facility] Mean Cell Volume 91.2 82.9 - 93.1 fL [facility] Mean Cell Hemoglobin 30.9 27.5 - 32.1 pg [facility] Mean Cell Hemoglobin Concentration 33.9 32.0 - 35.7 g/dL [facility] Platelet 228 145 - 357 x10(3)/[facility] RDW Standard Deviation 49.3(H) 36.0 - 45.0 fL [facility] RDW coefficient of variation 14.7(H) 11.4 - 13.8 % [facility] Mean Platelet Volume 9.0 7.6 - 12.9 fL [facility] NRBC% auto 0.0 % [facility] NRBC Absolute 0.000 0.000 - 0.000 x10(3)/[facility] Blood 03/19/2021 3:50 PM EST 03/19/2021 4:21 PM EST Narrative Resulting Agency Comment Spec In Lab Elsie Cristobal MD HEMATOLOGY ORDERABLE S [facility] [place] [address] * A1AT Genotype (03/19/2021 3:50 PM EST) [facility] A1AT Genotype A1AT (SERPINA1) GENOTYPING RESULTS: [...] in the ? S? phenotype (NM_[id number]:c.863 A>T; [id number]) and the ? Z? phenotype (c. 1096G>A; [id number]) are amplified and genotyped by two separate [...] [facility] and [employer] Technology (CGAT) Laboratory at [facility]. It has not been cleared or approved by the FDA. The laboratory is regulated under CLIA as qualified to perform high-complexity testing. This test is used for clinical purposes. It should not be regarded as investigational or for research. [facility] Comment: [VERIFIED DATE]03.27.21 Verified By:Nabila Ph.D., [facility], [facility] A Clinical Senior Risk Manager/Facility Coordinator (Electronic Signature) Blood 03/19/2021 3:50 PM EST 03/20/2021 7:43 AM EST Narrative Resulting Agency Comment Spec In Lab Elsie Cristobal MD CHEMISTRY ORDERABLES [facility] [place] [address] * A1AT Serum Concentration (03/19/2021 3:50 PM EST) [facility] Signature A1AT 148 90 - 200 mg/dL [facility] Blood 03/19/2021 3:50 PM EST 03/19/2021 4:21 PM EST Narrative Resulting Agency Comment Spec In Lab Elsie Cristobal MD CHEMISTRY ORDERABLES Performing Organization Address [facility] de Phone Number [facility] [place] [address] * Smooth Muscle Antibody (03/19/2021 3:50 PM EST) Sm Muscle Ab (MAY) Negative Negative M [facility] Comment: Negative: No further testing will be performed ADDITIONAL INFORMATION This test was developed and its performance characteristics determined by [facility] in a manner consistent with CLIA requirements. This test has not been cleared or approved by the U.S. Food and Drug Administration. Test Performed by: [facility] [address] [place] [address] Leather Belt Maker: Iggy Garcia M.D. Ph.D.; CLIA# [id number] Blood 03/19/2021 3:50 PM EST 03/20/2021 9:19 AM EST Narrative Resulting Agency Comment Spec In Lab Elsie Cristobal MD LAB SEND OUT ORDERAB LES Performing Organization Address [facility] de Phone Number [facility] [place] [address] * (ABNORMAL) SONAL (03/19/2021 3:50 PM EST) SONAL Ab Screen Test ?Result ? Flag ??Unit ??RefValue Antinuclear Ab, HEp-2 Substrate, ?Positive 1:320 ??@ ?<1:80 (Negative) ??S ? ADDITIONAL INFORMATION --------- ?Method: Immunofluorescence using HEp-2 cellular substrate. ??SONAL Titer: ?1:320 ??SONAL Pattern: ?Homogeneous ?Test Performed by: ?[facility] ?[address] [place] [address] ?Leather Belt Maker: Iggy Garcia M.D. Ph.D.; CLIA# [id number] (A) [facility] Blood 03/19/2021 3:50 PM EST 03/20/2021 9:19 AM EST Narrative Resulting Agency Comment Spec In Lab Elsie Cristobal MD LAB SEND OUT ORDERAB LES [facility] [place] [address] * (ABNORMAL) Comprehensive metabolic panel (non-fasting) (03/19/2021 3:50 PM EST) Glucose 143 65 - 199 mg/dL [facility] Comment:Diabetes: >=200 mg/d L plus symptoms Blood Urea Nitrogen 20 10 - 20 mg/dL [facility] Creatinine 0.99 0.80 - 1.50 mg/dL [facility] Sodium 141 135 - 145 mmol/L [facility] Potassium 4.6 3.5 - 5.0 mmol/L [facility] Comment: Please note: ??Patients with WBC >100,000 may have falsely elevated Potassium levels. ??For accurate Potassium quantification in these patients send serum separator tube (gold top) for subsequent determinations. ??Contact the Clinical Chemistry Laboratory if there are any questions. Chloride 102 98 - 107 mmol/L [facility] Carbon Dioxide 25 22 - 31 mmol/L [facility] Anion Gap 14 5 - 15 mmol/L [facility] Calcium 9.9 8.5 - 10.5 mg/dL [facility] Protein, Total 7.6 6.1 - 8.0 g/dL [facility] Albumin 4.7 3.2 - 5.2 g/dL [facility] Aspartate Aminotransferase 116(H) 0 - 39 unit/L [facility] Alanine Aminotransferase 124(H) 0 - 55 unit/L [facility] Alkaline Phosphatase 77 40 - 130 unit/L [facility] Bilirubin, Total 0.6 0.2 - 1.3 mg/dL [facility] Est Glomerular Filtration Rate 76 >=60 mL/min/1. 73 m?? [facility] Comment: This patient? s estimated [...] In Lab Elsie Cristobal MD CHEMISTRY ORDERABLES [facility] [place] [address] * Hepatitis C Antibody (03/19/2021 3:50 PM EST) Hepatitis C Antibody Negative Negative [facility] Blood 03/19/2021 3:50 PM EST 03/19/2021 4:21 PM EST Narrative Resulting Agency Comment Spec In Lab Elsie Cristobal MD CHEMISTRY ORDERABLES [facility] [place] [address] * [id number] (03/19/2021 2:30 PM EST) Narrative Elsie Cristobal MD - 03/19/2021 2:30 PM EST Elsie Cristobal MD ? 03/19/2021 ??8:41 PM [facility] Liver Fibrosis Assessment Report Indication: ??Fatty liver Performed by: ??Elsie Cristobal MD Procedure: Vibration Controlled Transient Elastography (VCTE) or Fibroscan [place] Protocol: Patient's identity, procedure and site were [...] disease documented in this encounter Care Teams Director Of Engineering Relationship Specialty Start Date End Date Dewayne Carrington MD PCP - General 09/02/16 documented as of this encounter
--- OUTSIDE RECORDS SUMMARY | 2024-04-19 15:24 | XMS_ITS | Encounter Summary ---
Author Organization [facility] [place] [address] Care Team Providers Care Associate Business Analyst Name Role Phone Dewayne Carrington MD Primary Care Provider [phone] Reason for Visit * Auth/Cert Specialty Diagnoses / Procedures Referred By Conteddie t Referred To Contact Diagnoses persistent atrial fibrillation Procedures PRO CARDIOVERSION ELECTIVE ARRHYTHMIA EXTERNAL CARDIOVERSION-ELECTIVE (WRVU 2.25) Referral ID Status Reason Start Date Expiration Date Visits Re quested Visits Authorized [id number] 1 1 Encounter Details Date Type Department Care Team (Latest Contact Info) Description 10/23/2020 10:15 AM EDT - 10/23/2020 12:55 PM EDT Hospital [place] [address] Fantasma Matos MD [facility] [place] [address] Persistent atrial fibrillation; PAF (paroxysmal atrial fibrillation) [...] the adhesive pads were placed, call the blasting entryman longwall foreman at . We will schedule a follow-up appointment with the blasting entryman here, or you will be scheduled to see your local doctor soon. Any specific instructions that apply to you will be given to you prior to discharge from the hospital. If you have any questions, call the Cardiology Department at Thursday through Thursday 8:00 a.m. to 4:30 p.m. * Attachments The following attachments cannot be sent through Care Everywhere. * Cardioversion: Post-op (Namibian) documented in this encounter Medications at Time [...] stress test at [facility] in [place], [place] May 02, 2013 during which he developed left shoulder and arm discomfort during submaximal exercise on the treadmill and after which he was converted to a pharmacologic test; nuclear imaging showed ejection fraction of 45% with a partially reversible inferior defect ?? Cath [facility] 05/13/2013: normal left main, mild diffuse disease throughout the LAD with an 80% mid stenosis representing a restenosis lesion, mild diffuse disease in the proximal obtuse marginal branch, and mild diffuse disease throughout the right coronary artery; status post 3.0 X 12 mm JON to 80%mid-LAD lesion (in-stent restenosis) ?? Heart catheterization [facility] January 06, 2014 showing normal left main, hazy 50% mid LAD stenosis, mild diffuse disease throughout the circumflex, and moderate diffuse disease in the proximal RCA with a totally occluded distal RCA with brisk flow via bridging collaterals; fractional flow reserveon the LAD 0.85 ?? Nuclear stress test [facility] August 2016 reportedly showing [...] 80 (documented on ICD interrogation 07/18/14) ?? [id number] score = 3 ?? Patient initially reluctant to be anticoagulated as recommended ??? Atrial pacemaker lead displacement Overview Note: New finding at office follow up 04/10/2014 Plan lead reposition/replacement ??? ICD (implantable cardioverter-defibrillator), dual, in situ Overview Note: New Atrial electrode: [employer] Dextrus Model# 4126-53 cm Serial# [id number] ?? Bipolar, steroid-tipped, active-fixation IS-1 lead ?? [...] at 10 V: No Old Ventricular electrode: [employer] Mckinney Model# 0292 Serial# [id number] ?? Bipolar, steroid-tipped, active-fixation DF-4 lead ?? [...] Atrial electrode: [employer] Dextrus Model# 4136 Serial# [id number] ?? Bipolar, steroid-tipped, active-fixation IS-1 lead ?? Access: Axillary vein ?? Location Removed 04/17/2014 ?? Implanted: 01/10/2014 Pulse generator: [employer] Incepta Model# E162 Serial# [id number] ?? DDDR ICD ?? Location: Subcutaneous The [...] past medical history. Pertinent Medications: No current [facility]-ordered facility-administered medications on file. Current Outpatient Medications Ordered in [facility] Medication Sig Dispense Refill ??? lamoTRIgine [...] 114/69 Pulse: 65 69 62 63 Resp: 16 16 Temp: TempSrc: SpO2: 100% 99% [...] Attending: Fantasma Matos MD 10/23/2020 Service Pager: [phone] documented in this encounter Miscellaneous Notes * Op Note - Fantasma Matos MD - 10/23/2020 11:35 AM EDT [facility] Operative Note Patient Name: Marquez Hendrix : [id number] MR#: [id number] Case Date: 10/23/2020 Surgeon: Surgeon(s) and Role: * Fantasma Matos MD - Primary * David Garner PA-C - Acls Specialist Preoperative diagnosis: persistent atrial fibrillation Postoperative diagnosis: [...] interrogation confirmed conversion. DEVICE INTERROGATION: Device type: [employer] Incepta ICD E 162 sn/[id number] implanted 01/10/2014 Programmed: DDDR w/ mode switch [...] st Contact Info) Description 06/15/2024 10:00 AM [facility] Hospital Encounter [place] [address] Arrived documented as of this encounter Procedures Procedure Name Priority Date/Time Associated Diagnosis Comments EKG 12-LEAD STAT 10/23/2020 11:54 AM EDT PAF (paroxysmal atrial fibrillation) Cardioversion Elective Arrhythmia External (53620) 10/23/2020 11:25 AM EDT Persistent atrial fibrillation [...] (Bezet) 472 ms MUSE SYSTEM Calculated P [place] 49 degrees MUSE SYSTEM Calculated R [place] -51 degrees MUSE SYSTEM INTERPRETATION Sinus rhythm with 1st degree A-V block Left axis deviation Low voltage QRS Inferior infarct (cited on or before 23-OCT-2020) Cannot rule out Anterior infarct (cited on or before 06-NOV-2016) Abnormal ECG When compared with ECG of 23-OCT-2020 09:23, Sinus rhythm has replaced Atrial fibrillation Nonspecific T wave abnormality, improved in Lateral leads Confirmed by MD Davin, Connor ([id number]) on 10/23/2020 12:10:37 PM MUSE SYSTEM 10/23/2020 [...] dose, Starting on Thu10/23/20 at 1148, Until Tu10/23/20 at 1455, for discomfort with PIV insertion, Routine sodium chloride 0.9 % (flush) flush 5 mL 5 mL, Intravenous, 2 TIMES DAILY, First dose on Thu10/23/20 at 1215, Until Discontinued, Routine sodium chloride 0.9 % (flush) flush 5-20 mL 5-20 mL, Intravenous, EVERY 1 MIN PRN, Starting on Thu10/23/20 at 1148, Until Tu10/23/20 at 1455, flush, Flush pertains to all [...] Routine documented in this encounter Care Teams Associate Business Analyst Relationship Specialty Start Date End Date Dewayne Carrington MD PCP - General 09/02/16 documented as of this encounter
--- OUTSIDE RECORDS SUMMARY | 2024-04-19 15:24 | XMS_ITS | Encounter Summary ---
[place] [address] Care Team Providers Care Hat Cleaner Name Role Phone Dewayne Crarington MD Primary Care Provider [phone] Encounter Details Date Type Department Care Team (Late st Contact Info) Description 09/14/2020 Orders Only Cardiology at [address] [address] Social History Tobacco Use Types Packs/Day Years [...] AM EST Hospital Encounter Non[place] [address] Arrived documented as of this encounter Procedures Procedure Name Priority Date/Time Associated Diagnosis Comments CARDIAC DEVICE CHECK - REMOTE DEVICE INITIATED Routine 09/14/2020 12:42 AM EDT documented in this encounter Results * Cardiac device check - Remote Device Initiated (09/14/2020 12:42 AM EDT) Date Time Interrogation Session [id number] IDCO Type Interrogation Session Remote Device Initiated IDCO Clinic Name [facility] IDCO Battery Date Time of Measurements [id number] IDCO Battery Status Beginning of Service IDCO Battery Remaining Longevity 42 mo IDCO Battery Remaining Percentage 46 % IDCO Capacitor Last Charge Date Time [id number] IDCO Capacitor Charge Time 11.2 s IDCO Capacitor Charge Type Reformation IDCO Capacitor Last Charge Date Time [id number] IDCO Capacitor Charge Time 3.8 s IDCO Capacitor Charge Energy 21 J IDCO Capacitor Charge Type Shock IDCO Episode Identifier [id number] IDCO Episode Date Time [id number] IDCO Episode Type Category Periodic EGM IDCO Episode Vendor Type Category APMRT IDCO Episode Detection And Therapy Details Presenting EGM IDCO Episode Identifier [id number] IDCO Episode Date [...] Episode Identifier [id number] IDCO Episode Date Time [id number] IDCO Episode Type Category AT/AF IDCO Episode [...] E162 IDCO Implantable Pulse Generator Serial Number [id number] IDCO Implantable Pulse Generator Global Risk Management Director [place] [employer] IDCO Implantable Pulse Generator Implant Date 20140110 IDCO Implantable Lead Model 4136 IDCO Implantable Lead Serial Number [id number] IDCO Implantable Lead Global Risk Management Director Guidant IDCO Implantable Lead Implant Date 20130421 IDCO Implantable Lead Polarity Type Bipolar Lead IDCO Implantable Lead Location Right Atrium IDCO Implantable Lead Model 0292 IDCO Implantable Lead Serial Number [id number] IDCO Implantable Lead Global Risk Management Director [place] [employer] IDCO Implantable Lead Implant Date IDCO [...] IDCO Lead Channel Pacing Threshold Measurement Method Mobile Sales Assistant Manual IDCO Lead Channel Pacing Threshold Polarity [...] IDCO Lead Channel Pacing Threshold Measurement Method Mobile Sales Assistant Manual IDCO Lead Channel Pacing Threshold Polarity [...] filedocumented in this encounter Care Teams Hat Cleaner Relationship Specialty Start Date End Date Dewayne Carrington MD PCP - General 09/02/16 documented as of this encounter
--- OUTSIDE RECORDS SUMMARY | 2024-04-19 15:24 | XMS_ITS | Encounter Summary ---
[place] [address] Care Team Providers Care Ampoule Sealer Name Role Phone Dewayne Carrington MD Primary Care Provider [phone] Encounter Details Date Type Department Care Team (Late st Contact Info) Description 08/23/2020 Orders Only Cardiology at [address] [address] Social History Tobacco Use Types Packs/Day Years [...] AM EST Hospital Encounter Non-[place] [address] Arrived documented as of this encounter Procedures Procedure Name Priority Date/Time Associated Diagnosis Comments CARDIAC DEVICE CHECK - REMOTE SCHEDULED Routine 08/23/2020 12:41 AM EDT documented in this encounter Results * Cardiac device check - Remote Scheduled (08/23/2020 12:41 AM EDT) Date Time Interrogation Session [id number] IDCO Type Interrogation Session Remote Scheduled [facility] IDCO Battery Date Time of Measurements [id number] IDCO Battery Status Beginning of Service IDCO Battery Remaining Longevity 42 mo IDCO Battery Remaining Percentage 46 % IDCO Capacitor Last Charge Date Time [id number] IDCO Capacitor Charge Time 11.2 s IDCO Capacitor Charge Type Reformation IDCO Capacitor Last Charge Date Time [id number] IDCO Capacitor Charge Time 3.8 s IDCO [...] E162 IDCO Implantable Pulse Generator Serial Number [id number] IDCO Implantable Pulse Generator [employer] [place] [employer] IDCO Implantable Pulse Generator Implant Date 20140110 IDCO Implantable Lead Model 4136 IDCO Implantable Lead Serial Number [id number] IDCO Implantable Lead [employer] IDCO Implantable Lead Implant Date 20130421 IDCO Implantable Lead Polarity Type Bipolar Lead IDCO Implantable Lead Location Right Atrium IDCO Implantable Lead Model 0292 IDCO Implantable Lead Serial Number [id number] IDCO Implantable Lead [employer] [place] [employer] IDCO Implantable Lead Implant Date IDCO [...] IDCO Lead Channel Pacing Threshold Measurement Method Mainspring Former Brace End Manual IDCO Lead Channel Pacing Threshold Polarity [...] IDCO Lead Channel Pacing Threshold Measurement Method Mainspring Former Brace End Manual IDCO Lead Channel Pacing Threshold Polarity [...] on filedocumented in this encounter Care Teams Ampoule Sealer Relationship Specialty Start Date End Date Dewayne Carrington MD PCP - General 09/02/16 documented as of this encounter
--- OUTSIDE RECORDS SUMMARY | 2024-04-19 15:24 | XMS_ITS | Encounter Summary ---
Author Organization [facility] Address [facility] [place] [address] Care Team Providers Care Soil Sort Worker Name Role Phone Dewayne Carrington MD Primary Care Provider [phone] Encounter Details Date Type Department Care Team ([facility] st Contact Info) Description 09/24/2020 [place] [id number] Kylee Bowling PA [facility] [place] [address] Social History Tobacco Use Types Packs/Day Years [...] pdf document Date of transmission: 09/24/20 Device power shovel mechanic: BSI Device type: DC ICD H/o afib on Xarelto, metoprolol succinate 250mg po daily Presenting rhythm: AF/VS AP 0% REGISTERED NURSE HH CASE MANAGER 19% Battery: 3 years Episodes: 19 tachy [...] seen by Dr. Molina on 05/23/20 at [facility]) MAXIMO Bo 09/24/2020 8:45 AM Cc: Shaheen [...] st Contact Info) Description 06/15/2024 10:00 AM [facility] Hospital Encounter Non[place] [address] Arrived documented as of this encounter Visit Diagnoses Not on filedocumented in this encounter Care Teams Soil Sort Worker Relationship Specialty Start Date End Date Dewayne Carrington MD PCP - General 09/02/16 documented as of this encounter
--- OUTSIDE RECORDS SUMMARY | 2024-04-19 15:24 | XMS_ITS | Encounter Summary ---
Author Organization [facility] Address [facility] [place] [address] Care Team Providers Care Senior Clinical Study Manager Name Role Phone Dewayne Carrington MD Primary Care Provider [phone] Encounter Details Date Type Department Care Team (Late st Contact Info) Description 10/11/2020 [place] [phone] David Garner, PA [facility] [address] Persistent atrial fibrillation Social History Tobacco Use [...] AM EST Hospital Encounter Non[place] [address] Arrived documented as of this encounter Results * EKG 12 Lead (10/23/2020 9:23 AM EDT) Ventricular rate 61 BPM MUSE SYSTEM Atrial Rate 326 BPM MUSE SYSTEM QRS Duration 116 ms MUSE SYSTEM Q-T Interval 394 ms MUSE SYSTEM QTC Calculated (Bezet) 396 ms MUSE SYSTEM Calculated R [place] -58 degrees MUSE SYSTEM Calculated T [place] -45 degrees MUSE SYSTEM INTERPRETATION Demand pacemaker; interpretation is based on intrinsic rhythm Atrial fibrillation with premature ventricular or aberrantly conducted complexes Left axis deviation Inferior infarct , age undetermined Possible Anterior infarct (cited on or before 06-NOV-2016) Abnormal ECG When compared with ECG of 06-NOV-2016 13:03, Atrial fibrillation has replaced Sinus rhythm Confirmed by MD Davin, Connor ([id number]) on 10/23/2020 9:47:44 AM MUSE SYSTEM 10/23/2020 9:23 AM EDT 10/23/2020 9:47 AM EDT Irena Daly MD ECG ORDERABLES Performing Organization Address City/[facility] [place]/[facility] Co de Phone Number MUSE SYSTEM * Magnesium (10/23/2020 9:05 AM EDT) Magnesium 0.81 0.69 - 1.07 mmol/L [facility] Blood 10/23/2020 9:05 AM EDT 10/23/2020 9:09 AM EDT Narrative Resulting Agency Comment Spec In Lab Irena Daly MD CHEMISTRY ORDERABLES Performing Organization Address [facility] [place]/[facility] Co de Phone Number [facility] [place] [address] * (ABNORMAL) Basic Metabolic Panel (non-fasting) (10/23/2020 9:05 AM EDT) Glucose 263(H) 65 - 199 mg/dL [facility] Comment:Diabetes: >=200 mg/d L plus symptoms Blood Urea Nitrogen 25(H) 10 - 20 mg/dL [facility] Creatinine 0.90 0.80 - 1.50 mg/dL [facility] Sodium 141 135 - 145 mmol/L [facility] Potassium 4.5 3.5 - 5.0 mmol/L [facility] Comment: Please note: ??Patients with WBC >100,000 may have falsely elevated Potassium levels. ??For accurate Potassium quantification in these patients send serum separator tube (gold top) for subsequent determinations. ??Contact the Clinical Chemistry Laboratory if there are any questions. Chloride 104 98 - 107 mmol/L [facility] Carbon Dioxide 27 22 - 31 mmol/L [facility] Anion Gap 10 5 - 15 mmol/L [facility] Calcium 9.5 8.5 - 10.5 mg/dL [facility] Est Glomerular Filtration Rate 86 >=60 mL/min/1. 73 m?? [facility] Comment: This patient? s estimated [...] In Lab Irena Daly MD CHEMISTRY ORDERABLES [facility] [place] [address] documented in this encounter Visit Diagnoses Diagnosis Persistent atrial fibrillation Atrial fibrillation documented in this encounter Care Teams Senior Clinical Study Manager Relationship Specialty Start Date End Date Dewayne Carrington MD PCP - General 09/02/16 documented as of this encounter
--- OUTSIDE RECORDS SUMMARY | 2024-04-19 15:24 | XMS_ITS | Encounter Summary ---
[place] [address] Care Team Providers Care Crown And Bridge Technician Name Role Phone Dewayne Carrington MD Primary Care Provider [phone] Encounter Details Date Type Department Care Team (Late st Contact Info) Description 09/26/2020 Orders Only Cardiology at [address] [address] Social History Tobacco Use Types Packs/Day Years [...] AM EST Hospital Encounter Non-[place] [address] Arrived documented as of this encounter Procedures Procedure Name Priority Date/Time Associated Diagnosis Comments CARDIAC DEVICE CHECK - REMOTE DEVICE INITIATED Routine 09/26/2020 12:41 AM EDT documented in this encounter Results * Cardiac device check - Remote Device Initiated (09/26/2020 12:41 AM EDT) Date Time Interrogation Session [id number] IDCO Type Interrogation Session Remote Device Initiated IDCO Clinic Name [facility] Shirin [facility] IDCO Battery Date Time of Measurements IDCO Battery Status Beginning of Service IDCO Battery Remaining Longevity 36 mo IDCO Battery Remaining Percentage 44 % IDCO Capacitor Last Charge Date Time [id number] IDCO Capacitor Charge Time 11.2 s IDCO [...] [id number] IDCO Implantable Pulse Generator Serial Number [id number] IDCO Implantable Pulse Generator Combine Driver [employer] IDCO Implantable Pulse Generator Implant Date 20140110 IDCO Implantable Lead Model 4136 IDCO Implantable Lead Serial Number [id number] IDCO Implantable Lead Combine Driver Guidant IDCO Implantable Lead Implant Date 20130421 IDCO Implantable Lead Polarity Type Bipolar Lead IDCO Implantable Lead Location Right Atrium IDCO Implantable Lead Model 0292 IDCO Implantable Lead Serial Number [id number] IDCO Implantable Lead Combine Driver [employer] IDCO Implantable Lead Implant Date IDCO [...] IDCO Lead Channel Pacing Threshold Measurement Method Laborer Petroleum Refinery Manual IDCO Lead Channel Pacing Threshold Polarity [...] IDCO Lead Channel Pacing Threshold Measurement Method Laborer Petroleum Refinery Manual IDCO Lead Channel Pacing Threshold Polarity [...] on filedocumented in this encounter Care Teams Crown And Bridge Technician Relationship Specialty Start Date End Date Dewayne Carrington MD PCP - General 09/02/16 documented as of this encounter
--- OUTSIDE RECORDS SUMMARY | 2024-04-19 15:24 | XMS_ITS | Encounter Summary ---
Author Organization [facility] Address [facility] [place] [address] Care Team Providers Care Night Order Selector Name Role Phone Dewayne Carrington MD Primary Care Provider [phone] Reason for Visit * Auth/Cert Specialty Diagnoses / Procedures Referred By Contac t Referred To Contact Diagnoses persistent atrial fibrillation Procedures PRO CARDIOVERSION ELECTIVE ARRHYTHMIA EXTERNAL CARDIOVERSION-ELECTIVE (WRVU 2.25) Referral ID Status Reason Start Date Expiration Date Visits Re quested Visits Authorized [id number] 1 1 Encounter Details Date Type Department Care Team (Late st Contact Info) Description 10/23/2020 9:30 AM EDT Office Visit Cardiology at [address] [address] David Garner PA [facility] [place] [address] Persistent atrial fibrillation Social History Tobacco Use [...] disease) Overview Note: ?? Heart catheterization in [facility] in 2007 with placement of a stent in an unspecified vessel ?? Repeat heart catheterization in 2008 with placement of stents to both the LAD and circumflex ?? Followup heart catheterization in 2008 showing stable results in both vessels ?? Recurrent chest discomfort in a somewhat atypical pattern beginning fall ?? Nuclear stress test at [facility] in [place], [place] May 02, 2013 during which he developed left shoulder and arm discomfort during submaximal exercise on the treadmill and after which he was converted to a pharmacologic test; nuclear imaging showed ejection fraction of 45% with a partially reversible inferior defect ?? Cath [facility] 05/13/2013: normal left main, mild diffuse disease throughout the LAD with an 80% mid stenosis representing a restenosis lesion, mild diffuse disease in the proximal obtuse marginal branch, and mild diffuse disease throughout the right coronary artery; status post 3.0 X 12 mm JON to 80%mid-LAD lesion (in-stent restenosis) ?? Heart catheterization [facility] January 06, 2014 showing normal left main, hazy 50% mid LAD stenosis, mild diffuse disease throughout the circumflex, and moderate diffuse disease in the proximal RCA with a totally occluded distal RCA with brisk flow via bridging collaterals; fractional flow reserveon the LAD 0.85 ?? Nuclear stress test [facility] August 2016 reportedly showing a small [...] 80 (documented on ICD interrogation 07/18/14) ?? [id number] score = 3 ?? Patient initially reluctant to be anticoagulated as recommended ??? Atrial pacemaker lead displacement Overview Note: New finding at office follow up 04/10/2014 Plan lead reposition/replacement ??? ICD (implantable cardioverter-defibrillator), dual, in situ Overview Note: New Atrial electrode: Guidant Dextrus Model# 4126-53 cm Serial# [id number] ?? Bipolar, steroid-tipped, active-fixation IS-1 lead ?? [...] at 10 V: No Old Ventricular electrode: Enterra Feed Hoffman Model# 0292 Serial# [id number] ?? Bipolar, steroid-tipped, active-fixation DF-4 lead ?? [...] Atrial electrode: Guidant Dextrus Model# 4136 Serial# [id number] ?? Bipolar, steroid-tipped, active-fixation IS-1 lead ?? Access: Axillary vein ?? Location Removed 04/17/2014 ?? Implanted: 01/10/2014 Pulse generator: Enterra Feed Incepta Model# E162 Serial# [id number] ?? DDDR ICD ?? Location: Subcutaneous The [...] Vitals: 10/23/20 0921 BP: 127/68 BP Location ([facility]): Left arm Patient Position: Sitting Pulse: 68 [...] AM EST Hospital Encounter Non-Invasive [place] [address] Arrived documented as of this encounter Procedures [...] (Bezet) 396 ms MUSE SYSTEM Calculated R [place] -58 degrees MUSE SYSTEM Calculated T [place] -45 degrees MUSE SYSTEM INTERPRETATION Demand pacemaker; interpretation is based on intrinsic rhythm Atrial fibrillation with premature ventricular or aberrantly conducted complexes Left axis deviation Inferior infarct , age undetermined Possible Anterior infarct (cited on or before 06-NOV-2016) Abnormal ECG When compared with ECG of 06-NOV-2016 13:03, Atrial fibrillation has replaced Sinus rhythm Confirmed by MD Davin, [facility] ([id number]) on 10/23/2020 9:47:44 AM MUSE SYSTEM 10/23/2020 9:23 AM EDT 10/23/2020 9:47 AM EDT Irena Daly MD ECG ORDERABLES MUSE SYSTEM documented in this encounter Visit Diagnoses Diagnosis Persistent atrial fibrillation Atrial fibrillation documented in this encounter Care Teams Night Order Selector Relationship Specialty Start Date End Date Dewayne Carrington MD PCP - General 09/02/16 documented as of this encounter
--- OUTSIDE RECORDS SUMMARY | 2024-04-19 15:24 | XMS_ITS | Encounter Summary ---
[place] [address] Care Team Providers Care Senior Graduate Advisor Name Role Phone Dewayne Carrington MD Primary Care Provider [phone] Encounter Details Date Type Department Care Team (Late st Contact Info) Description 09/20/2020 Orders Only Cardiology at [address] [address] Social History Tobacco Use Types Packs/Day Years [...] AM EST Hospital Encounter Non-[place]vasive [place] [address] Arrived documented as of this encounter Procedures Procedure Name Priority Date/Time Associated Diagnosis Comments CARDIAC DEVICE CHECK - REMOTE DEVICE INITIATED Routine 09/20/2020 12:41 AM EDT documented in this encounter Results * Cardiac device check - Remote Device Initiated (09/20/2020 12:41 AM EDT) Date Time Interrogation Session [id number] IDCO Type Interrogation Session Remote Device Initiated IDCO Clinic Name [facility] Shirin [facility] IDCO Battery Date Time of Measurements IDCO Battery Status Beginning of Service IDCO Battery Remaining Longevity 36 mo IDCO Battery Remaining Percentage 42 % IDCO Capacitor Last Charge Date Time [id number] IDCO Capacitor Charge Time 11.2 s IDCO Capacitor Charge Type Reformation IDCO Capacitor Last Charge Date Time [id number] IDCO Capacitor Charge Time 3.8 s IDCO [...] E162 IDCO Implantable Pulse Generator Serial Number [id number] IDCO Implantable Pulse Generator Powder Press Operator [employer] IDCO Implantable Pulse Generator Implant Date 20140110 IDCO Implantable Lead Model 4136 IDCO Implantable Lead Serial Number [id number] IDCO Implantable Lead Powder Press Operator Guidant IDCO Implantable Lead Implant Date 20130421 IDCO Implantable Lead Polarity Type Bipolar Lead IDCO Implantable Lead Location Right Atrium IDCO Implantable Lead Model 0292 IDCO Implantable Lead Serial Number [id number] IDCO Implantable Lead Powder Press Operator [employer] IDCO Implantable Lead Implant Date IDCO [...] IDCO Lead Channel Pacing Threshold Measurement Method Distribution Center Assistant Manual IDCO Lead Channel Pacing Threshold [...] IDCO Lead Channel Pacing Threshold Measurement Method Distribution Center Assistant Manual IDCO Lead Channel Pacing Threshold [...] filedocumented in this encounter Care Teams Senior Graduate Advisor Relationship Specialty Start Date End Date Dewayne Carrington MD PCP - General 09/02/16 documented as of this encounter
--- OUTSIDE RECORDS SUMMARY | 2024-04-19 15:24 | XMS_ITS | Encounter Summary ---
Author Organization [facility] Address [facility] [place] [address] Care Team Providers Care Feed And Farm Management Adviser Name Role Phone Dewayne Carrington MD Primary Care Provider [phone] Encounter Details Date Type Department Care Team ([facility] st Contact Info) Description 09/12/2020 [place] [address] Loraine Santacruz, NET SOFTWARE DEVELOPER [facility] [place] [address] Social History Tobacco Use Types Packs/Day Years [...] this encounter Progress Notes * Loraine Santacruz, NET SOFTWARE DEVELOPER - 09/12/2020 7:58 AM EDT Cardiac Device Remote Monitoring Report Summary [facility] 09/12/20 Device: ICD Model: INCEPTA [...] [facility] En[facility] Non-[place] [address] Arrived documented as of this encounter Visit Diagnoses Not on filedocumented in this encounter Care Teams Feed And Farm Management Adviser Relationship Specialty Start Date End Date Dewayne Carrington MD PCP - General 09/02/16 documented as of this encounter
--- OUTSIDE RECORDS SUMMARY | 2024-04-19 15:24 | XMS_ITS | Encounter Summary ---
[place] [address] Care Team Providers Care Waste Hand Name Role Phone Dewayne Carrington MD Primary Care Provider [phone] Encounter Details Date Type Department Care Team (Late st Contact Info) Description 09/12/2020 Orders Only Cardiology at [address] [address] Social History Tobacco Use Types Packs/Day Years [...] AM EST Hospital Encounter [place] [address] Arrived documented as of this encounter Procedures Procedure Name Priority Date/Time Associated Diagnosis Comments CARDIAC DEVICE CHECK - REMOTE DEVICE INITIATED Routine 09/12/2020 12:42 AM EDT documented in this encounter Results * Cardiac device check - Remote Device Initiated (09/12/2020 12:42 AM EDT) Date Time Interrogation Session [id number] IDCO Type Interrogation Session Remote Device Initiated IDCO Clinic Name [facility] Shirin [facility] IDCO Battery Date Time of Measurements [id number] IDCO Battery Status Beginning of Service IDCO Battery Remaining Longevity 42 mo IDCO Battery Remaining Percentage 46 % IDCO Capacitor Last Charge Date Time [id number] IDCO Capacitor Charge Time 11.2 s IDCO Capacitor Charge Type Reformation IDCO Capacitor Last Charge Date Time [id number] IDCO Capacitor Charge Time 3.8 s IDCO [...] And Therapy Details NonSustV IDCO Episode Identifier -[id number] IDCO Episode Date Time IDCO Episode Type [...] Episode Identifier [id number] IDCO Episode Date Time [id number] IDCO Episode Type Category AT/AF IDCO Episode [...] E162 IDCO Implantable Pulse Generator Serial Number [id number] IDCO Implantable Pulse Generator Line Staker [employer] IDCO Implantable Pulse Generator Implant Date 20140110 IDCO Implantable Lead Model 4136 IDCO Implantable Lead Serial Number [id number] IDCO Implantable Lead Line Staker Guidant IDCO Implantable Lead Implant Date 20130421 IDCO Implantable Lead Polarity Type Bipolar Lead IDCO Implantable Lead Location Right Atrium IDCO Implantable Lead Model 0292 IDCO Implantable Lead Serial Number [id number] IDCO Implantable Lead Line Staker [employer] IDCO Implantable Lead Implant Date IDCO [...] IDCO Lead Channel Pacing Threshold Measurement Method Snowboard Designer Manual IDCO Lead Channel Pacing Threshold [...] IDCO Lead Channel Pacing Threshold Measurement Method Snowboard Designer Manual IDCO Lead Channel Pacing Threshold [...] on filedocumented in this encounter Care Teams Waste Hand Relationship Specialty Start Date End Date Dewayne Carrington MD PCP - General 09/02/16 documented as of this encounter
--- OUTSIDE RECORDS SUMMARY | 2024-04-19 15:24 | XMS_ITS | Encounter Summary ---
Author Organization [facility] [place] [address] Care Team Providers Care Bag Machine Tender Name Role Phone Dewayne Carrington MD Primary Care Provider [phone] Reason for Visit * Auth/Cert Specialty Diagnoses / Procedures Referred By Contac t Referred To Contact Diagnoses persistent atrial fibrillation Procedures PRO CARDIOVERSION ELECTIVE ARRHYTHMIA EXTERNAL CARDIOVERSION-ELECTIVE (WRVU 2.25) Referral ID Status Reason Start Date Expiration Date Visits Re quested Visits Authorized [id number] 1 1 Encounter Details Date Type Department Care Team (Late st Contact Info) Description 10/23/2020 11:25 AM EDT Anesthesia Event [place] [id number] Kyra Spear MD [facility] [place] [address] Deepthi Monique CRNA [facility] [place] [address] Anesthesia Record Procedure Summary Procedure Name Responsible [...] 1118; metacarpal vein (top of hand), right; pmoi-tsu-omojoz catheter system; Anatomical Landmarks; 22 gauge; rtrn; intradermal injection, tolerated well, appears comfortable; 10/23/20; 1245 10/23/20 1118 by Marii Beck RN 10/23/20 1245 by Kailee Garcia, NAHUN documented in this encounter Social History Tobacco [...] OR Notes * Anesthesia Postprocedure Evaluation - Krya Spear MD - 10/23/2020 1:49 PM EDT Department of Anesthesiology Post-procedure Note Patient: Marquez Hendrix Procedure Summary Date: 10/23/20 Room / Location: [facility] / [facility] OR Anesthesia Start: 1125 Anesthesia Stop: 1144 Procedure: CARDIOVERSION-ELECTIVE (WRVU 2.25) (N/A Chest) Diagnosis: Persistent atrial fibrillation (persistent atrial fibrillation) Surgeons: Fantasma Matos MD Responsible Provider: Kyra Spear MD Anesthesia Type: MAC ASA Status: 3 All Anesthesia Providers: Anesthesiologist: Kyra Spear MD HUMAN RESOURCES DEPARTMENT SUPERVISOR: Deepthi Monique CRNA Student Nurse Biodiesel Technology Manager: Brooke Montano Vitals Value Taken Time BP 114/69 10/23/20 1241 Temp 36 ??C (96.8 ??F) 10/23/20 1146 Pulse 63 10/23/20 1241 Resp 16 10/23/20 1241 SpO2 99 % 10/23/20 1241 Pain Level 0 10/23/20 1241 Patient Location: PACU/[facility] Level of Consciousness: Awake and Alert Pain [...] (arteriosclerotic cardiovascular disease) ?? Heart catheterization in [facility] in 2007 with placement of a stent in an unspecified vessel ?? Repeat heart catheterization in 2008 with placement of stents to both the LAD and circumflex ?? Followup heart catheterization in 2008 showing stable results in both vessels ?? Recurrent chest discomfort in a somewhat atypical pattern beginning fall ?? Nuclear stress test at [facility] in [place], [place] May 02, 2013 during which he developed left shoulder and arm discomfort during submaximal exercise on the treadmill and after which he was converted to a pharmacologic test; nuclear imaging showed ejection fraction of 45% with a partially reversible inferior defect ?? Cath [facility] 05/13/2013: normal left main, mild diffuse disease throughout the LAD with an 80% mid stenosis representing a restenosis lesion, mild diffuse disease in the proximal obtuse marginal branch, and mild diffuse disease throughout the right coronary artery; status post 3.0 X 12 mm JON to 80%mid-LAD lesion (in-stent restenosis) ?? Heart catheterization [facility] January 06, 2014 showing normal left main, hazy 50% mid LAD stenosis, mild diffuse disease throughout the circumflex, and moderate diffuse disease in the proximal RCA with a totally occluded distal RCA with brisk flow via bridging collaterals; fractional flow reserveon the LAD 0.85 ?? Nuclear stress test [facility] August 2016 reportedly showing a small [...] 80 (documented on ICD interrogation 07/18/14) ?? [id number] score = 3 ?? Patient initially reluctant to be anticoagulated as recommended ??? Atrial pacemaker lead displacement New finding at office follow up 04/10/2014 Plan lead reposition/replacement ??? ICD (implantable cardioverter-defibrillator), dual, in situ New Atrial electrode: Guidant Dextrus Model# 4126-53 cm Serial# [id number] ?? Bipolar, steroid-tipped, active-fixation IS-1 lead ?? [...] at 10 V: No Old Ventricular electrode: NuConomy [place] Model# 0292 Serial# [id number] ?? Bipolar, steroid-tipped, active-fixation DF-4 lead ?? [...] Atrial electrode: Guidant Dextrus Model# 4136 Serial# [id number] ?? Bipolar, steroid-tipped, active-fixation IS-1 lead ?? Access: Axillary vein ?? Location Removed 04/17/2014 ?? Implanted: 01/10/2014 Pulse generator: NuConomy Incepta Model# E162 Serial# [id number] ?? DDDR ICD ?? Location: Subcutaneous The [...] WITH BIOPSY performed by KYRA VYAS at [facility] Social History Tobacco Use ??? Smoking [...] I will be working with either a HUMAN RESOURCES DEPARTMENT SUPERVISOR or resident physician. A resident physician means a physician who is in training to be an anesthesiologist. The patient acknowledged these risks and would like to proceed with the anesthesia plan. Sedation. Informed Consent: Anesthetic plan and risks discussed with patient. Plan discussed with HUMAN RESOURCES DEPARTMENT SUPERVISOR. Anesthesia Screening documented in this encounter Miscellaneous Notes * Addendum Note - Kyra Spear MD - 10/23/2020 1:49 PM EDT Addendum created 10/23/20 1349 by Kyra Spear MD Clinical Note Signed documented in this encounter Plan of Treatment Upcoming Encounters Date Type Department Care Team (Late st Contact Info) Description 06/15/2024 10:00 AM EST Hospital Encounter Non-Invasive Cardiology Lab [facility] [place] [address] Arrived documented as of this encounter Visit [...] mg documented in this encounter Care Teams Bag Machine Tender Relationship Specialty Start Date End Date Dewayne Carrington MD PCP - General 09/02/16 documented as of this encounter
--- OUTSIDE RECORDS SUMMARY | 2024-04-19 15:24 | XMS_ITS | Encounter Summary ---
[place] [address] Care Team Providers Care Game Trapper Name Role Phone Dewayne Carrington MD Primary Care Provider Encounter Details Date Type Department Care Team (Late st Contact Info) Description 09/24/2020 Orders Only Cardiology at [address] [address] Social History Tobacco Use Types Packs/Day Years [...] AM EST Hospital Encounter [place] [address] Arrived documented as of this encounter Procedures Procedure Name Priority Date/Time Associated Diagnosis Comments CARDIAC DEVICE CHECK - REMOTE DEVICE INITIATED Routine 09/24/2020 12:41 AM EDT documented in this encounter Results * Cardiac device check - Remote Device Initiated (09/24/2020 12:41 AM EDT) Date Time Interrogation Session [id number] IDCO Type Interrogation Session Remote Device Initiated IDCO Clinic Name [facility] Shirin [facility] IDCO Battery Date Time of Measurements [id number] IDCO Battery Status Beginning of Service IDCO Battery Remaining Longevity 36 mo IDCO Battery Remaining Percentage 44 % IDCO Capacitor Last Charge Date Time [id number] IDCO Capacitor Charge Time 11.2 s IDCO Capacitor Charge Type Reformation IDCO Capacitor Last Charge Date Time [id number] IDCO Capacitor Charge Time 3.8 s IDCO [...] And Therapy Details ATR IDCO Episode Identifier V-8 IDCO Episode Date [...] Episode Identifier [id number] IDCO Episode Date Time [id number] IDCO Episode Type Category AT/AF IDCO Episode [...] Episode Identifier [id number] IDCO Episode Date Time IDCO Episode Type [...] E162 IDCO Implantable Pulse Generator Serial Number [id number] IDCO Implantable Pulse Generator Shift Commander InstraGrok IDCO Implantable Pulse Generator Implant Date 20140110 IDCO Implantable Lead Model 4136 IDCO Implantable Lead Serial Number [id number] IDCO Implantable Lead Shift Commander GuidPopset IDCO Implantable Lead Implant Date 20130421 IDCO Implantable Lead Polarity Type Bipolar Lead IDCO Implantable Lead Location Right Atrium IDCO Implantable Lead Model 0292 IDCO Implantable Lead Serial Number [id number] IDCO Implantable Lead Shift Commander Visualant Scientific IDCO Implantable Lead Implant Date IDCO [...] IDCO Lead Channel Pacing Threshold Measurement Method Fire Assistant Manual IDCO Lead Channel Pacing Threshold [...] IDCO Lead Channel Pacing Threshold Measurement Method Fire Assistant Manual IDCO Lead Channel Pacing Threshold [...] on filedocumented in this encounter Care Teams Game Trapper Relationship Specialty Start Date End Date Dewayne Carrington MD PCP - General 09/02/16 documented as of this encounter
--- OUTSIDE RECORDS SUMMARY | 2024-04-19 15:24 | XMS_ITS | Encounter Summary ---
Author Organization [facility] [place] [address] Care Team Providers Care Learning Specialist Name Role Phone Dewayne Carrington MD Primary Care Provider [phone] Reason for Visit * Auth/Cert Specialty Diagnoses / Procedures Referred By Rosa t Referred To Contact Diagnoses persistent atrial fibrillation Procedures PRO CARDIOVERSION ELECTIVE ARRHYTHMIA EXTERNAL CARDIOVERSION-ELECTIVE (WRVU 2.25) Referral ID Status Reason Start Date Expiration Date Visits Re quested Visits Authorized [id number] 1 1 Encounter Details Date Type Department Care Team (Late st Contact Info) Description 10/23/2020 11:30 AM EDT - 10/23/2020 12:00 PM EDT Surgery [place] [address] Fantasma Matos MD [facility] [place] [address] [place] [address] CARDIOVERSION-ELECTIVE (WRVU 2) Social History Tobacco Use [...] the adhesive pads were placed, call the medical lab scientist consumer analyst at . We will schedule a follow-up appointment with the medical lab scientist here, or you will be scheduled to see your local doctor soon. Any specific instructions that apply to you will be given to you prior to discharge from the hospital. If you have any questions, call the Cardiology Department at Thursday through Thursday 8:00 a.m. to 4:30 p.m. * Attachments The following attachments cannot be sent through Care Everywhere. * Cardioversion: Post-op (Congolese) documented in this encounter Medications at Time [...] disease) Overview Note: ?? Heart catheterization in [facility] in 2007 with placement of a stent in an unspecified vessel ?? Repeat heart catheterization in 2008 with placement of stents to both the LAD and circumflex ?? Followup heart catheterization in 2008 showing stable results in both vessels ?? Recurrent chest discomfort in a somewhat atypical pattern beginning fall ?? Nuclear stress test at [facility] in [place], [place] May 02, 2013 during which he developed left shoulder and arm discomfort during submaximal exercise on the treadmill and after which he was converted to a pharmacologic test; nuclear imaging showed ejection fraction of 45% with a partially reversible inferior defect ?? Cath [facility] 05/13/2013: normal left main, mild diffuse disease throughout the LAD with an 80% mid stenosis representing a restenosis lesion, mild diffuse disease in the proximal obtuse marginal branch, and mild diffuse disease throughout the right coronary artery; status post 3.0 X 12 mm JON to 80%mid-LAD lesion (in-stent restenosis) ?? Heart catheterization [facility] January 06, 2014 showing normal left main, hazy 50% mid LAD stenosis, mild diffuse disease throughout the circumflex, and moderate diffuse disease in the proximal RCA with a totally occluded distal RCA with brisk flow via bridging collaterals; fractional flow reserveon the LAD 0.85 ?? Nuclear stress test [facility] August 2016 reportedly showing a small area [...] 80 (documented on ICD interrogation 07/18/14) ?? [id number] score = 3 ?? Patient initially reluctant to be anticoagulated as recommended ??? Atrial pacemaker lead displacement Overview Note: New finding at office follow up 04/10/2014 Plan lead reposition/replacement ??? ICD (implantable cardioverter-defibrillator), dual, in situ Overview Note: New Atrial electrode: Guidant Dextrus Model# 4126-53 cm Serial# [id number] ?? Bipolar, steroid-tipped, active-fixation IS-1 lead ?? [...] at 10 V: No Old Ventricular electrode: byyd Buhl Model# 0292 Serial# [id number] ?? Bipolar, steroid-tipped, active-fixation DF-4 lead ?? [...] Atrial electrode: Guidant Dextrus Model# 4136 Serial# [id number] ?? Bipolar, steroid-tipped, active-fixation IS-1 lead ?? Access: Axillary vein ?? Location Removed 04/17/2014 ?? Implanted: 01/10/2014 Pulse generator: byyd Incepta Model# E162 Serial# [id number] ?? DDDR ICD ?? Location: Subcutaneous The [...] past medical history. Pertinent Medications: No current [facility]-ordered facility-administered medications on file. Current Outpatient Medications Ordered in [facility] Medication Sig Dispense Refill ??? [email or web address] [...] Attending: Fantasma Matos MD 10/23/2020 Service Pager: [phone] documented in this encounter Miscellaneous Notes * Op Note - Fantasma Matos MD - 10/23/2020 11:35 AM EDT [facility] Operative Note Patient Name: Marquez Hendrix : [id number] MR#: [id number] Case Date: 10/23/2020 Surgeon: Surgeon(s) and Role: * Fantasma Matos MD - Primary * David Garner PA-C - Reflexologist Preoperative diagnosis: persistent atrial fibrillation Postoperative diagnosis: [...] interrogation confirmed conversion. DEVICE INTERROGATION: Device type: [place] [employer] Incepta ICD E 162 [id number] implanted 01/10/2014 Programmed: DDDR w/ mode switch [...] AM EST Hospital Encounter [place] [address] Arrived documented as of this encounter Procedures Procedure Name Priority Date/Time Associated Diagnosis Comments EKG 12-LEAD STAT 10/23/2020 11:54 AM EDT PAF (paroxysmal atrial fibrillation) Cardioversion Elective Arrhythmia External (64585) 10/23/2020 11:25 AM EDT Persistent atrial fibrillation [...] (Bezet) 472 ms MUSE SYSTEM Calculated P [place] 49 degrees MUSE SYSTEM Calculated R [place] -51 degrees MUSE SYSTEM INTERPRETATION Sinus rhythm with 1st degree A-V block Left axis deviation Low voltage QRS Inferior infarct (cited on or before 23-OCT-2020) Cannot rule out Anterior infarct (cited on or before 06-NOV-2016) Abnormal ECG When compared with ECG of 23-OCT-2020 09:23, Sinus rhythm has replaced Atrial fibrillation Nonspecific T wave abnormality, improved in Lateral leads Confirmed by MD Davin, [facility] ([id number]) on 10/23/2020 12:10:37 PM MUSE SYSTEM 10/23/2020 [...] Routine documented in this encounter Care Teams Learning Specialist Relationship Specialty Start Date End Date Dewayne Carrington MD PCP - General 09/02/16 documented as of this encounter
--- OUTSIDE RECORDS SUMMARY | 2024-04-19 15:24 | XMS_ITS | Encounter Summary ---
Author Organization [facility] [place] [address] Care Team Providers Care Manager Mail Name Role Phone Dewayne Carrington MD Primary Care Provider [phone] Encounter Details Date Type Department Care Team ([facility] st Contact Info) Description 10/18/2020 Telephone Cardiology at [address] [phone] Aileen Larios RN Social History Tobacco Use [...] Hendrix Patient Providers: Luke Garner / Claudette Matos Date Scheduled: 10/23/20 Arrival Time/ Case Time: [...] to procedure. NPO after midnight. Understands that straddle bug driver is needed to transport them upon discharge. documented in this encounter Plan of Treatment Upcoming Encounters Date Type Department Care Team (Late st Contact Info) Description 06/15/2024 10:00 AM EST Hospital Encounter Non-[place]vasive [place] [address] Arrived documented as of this encounter Visit Diagnoses Not on filedocumented in this encounter Care Teams Manager Mail Relationship Specialty Start Date End Date Dewayne Carrington MD PCP - General 09/02/16 documented as of this encounter
--- OUTSIDE RECORDS SUMMARY | 2024-04-19 15:24 | XMS_ITS | Encounter Summary ---
Author Organization [facility] Address [facility] [place] [address] Care Team Providers Care Shell Worker Name Role Phone Dewayne Carrington MD Primary Care Provider [phone] Encounter Details Date Type Department Care Team (Latest Contact Info) Description 08/23/2020 11:29 AM EDT - 08/23/2020 11:59 PM EDT Hospital Encounter [place] [address] Ta Negron MD [facility] [place] [place] [address] V-tach Discharge Disposition: Home Social History Tobacco [...] AM EST Hospital Encounter [place] [address] Arrived documented as of this encounter Procedures Procedure Name Priority Date/Time Associated Diagnosis Comments ICD INTERROGATION 3 MONTH Routine 08/23/2020 11:31 AM EDT V-tach documented in this encounter Results * ICD INTERROGATION 3 MONTH (08/23/2020 11:31 AM EDT) Anatomical Region Laterality Modality Other Narrative 08/23/2020 11:45 AM EDT Cardiac Device Remote Monitoring Report Summary Deehubs Latitude 08/23/20 Device: ICD Model: INCEPTA Battery: [...] tachycardia documented in this encounter Care Teams Shell Worker Relationship Specialty Start Date End Date Dewayne Carrington MD PCP - General 09/02/16 documented as of this encounter
--- OUTSIDE RECORDS SUMMARY | 2024-04-19 15:24 | XMS_ITS | Encounter Summary ---
Author Organization [facility] Address [facility] [place] [address] Care Team Providers Care Auger Machine Offbearer Name Role Phone Dewayne Carrington MD Primary Care Provider [phone] Encounter Details Date Type Department Care Team ([facility] st Contact Info) Description 09/18/2020 1:00 PM EDT Office Visit Cardiology at [address] [address] David Garner PA [facility] [place] [address] Sustained VT (ventricular tachycardia); ICD (implantable cardioverter-defibril [...] PM EDT Cardiac Device Interrogation Marquez Hendrix [id number] 09/18/2020 History: Mr. Hendrix is a pleasant [...] electrode: Guidant Dextrus Model# 4126-53 cm Serial# [id number], implanted 04/17/2014 ?? Bipolar, steroid-tipped, active-fixation IS-1 lead ?? Access: Axillary vein ?? Location Right atrial appendage ?? Old Ventricular electrode: [employer] [place] Model# 0292 Serial# [id number] ?? Bipolar, steroid-tipped, active-fixation DF-4 lead ?? Access: Axillary vein ?? Location: Right ventricular apex ?? Implanted: 01/10/2014 ?? Pulse generator: Valentine [employer] Incepta Model# E162 Serial# [id number] ?? DDDR ICD ?? Location: Subcutaneous Diagnostics [...] would prefer to have it done at [facility]). MAXIMO Avila 09/18/2020 documented in this encounter Miscellaneous Notes * Addendum Note - David Garner PA - 09/18/2020 1:00 PM EDTAddended by: DAVID GARNER on: 10/02/2020 11:11 PM Modules accepted: Orders documented in this encounter Plan of Treatment Upcoming Encounters Date Type Department Care Team (Late st Contact Info) Description 06/15/2024 10:00 AM [facility] Hospital Encounter Non-[place] [address] Arrived documented as of this encounter Visit Diagnoses Diagnosis Sustained VT (ventricular tachycardia) Paroxysmal ventricular tachycardia ICD (implantable cardioverter-defibrillator), dual, in situ Persistent atrial fibrillation Atrial fibrillation documented in this encounter Care Teams Auger Machine Offbearer Relationship Specialty Start Date End Date Dewayne Carrington MD PCP - General 09/02/16 documented as of this encounter
--- OUTSIDE RECORDS SUMMARY | 2024-04-19 15:24 | XMS_ITS | Encounter Summary ---
[place] [address] Care Team Providers Care Change Booth Attendant Name Role Phone Dewayne Carrington MD Primary Care Provider Encounter Details Date Type Department Care Team (Late st Contact Info) Description 08/21/2020 Orders Only Cardiology at [address] [address] Social History Tobacco Use Types Packs/Day Years [...] AM EST Hospital Encounter Non-[place] [address] Arrived documented as of this encounter Procedures Procedure Name Priority Date/Time Associated Diagnosis Comments CARDIAC DEVICE CHECK - REMOTE DEVICE INITIATED Routine 08/21/2020 12:42 AM EDT documented in this encounter Results * Cardiac device check - Remote Device Initiated (08/21/2020 12:42 AM EDT) Date Time Interrogation Session [id number] IDCO Type Interrogation Session Remote Device Initiated IDCO Clinic Name [facility] Shirin [facility] IDCO Battery Date Time of Measurements [id number] IDCO Battery Status Beginning of Service IDCO Battery Remaining Longevity 42 mo IDCO Battery Remaining Percentage 47 % IDCO Capacitor Last Charge Date Time [id number] IDCO Capacitor Charge Time 11.2 s IDCO [...] Episode Identifier [id number] IDCO Episode Date Time [id number] IDCO Episode Type Category VT IDCO Episode [...] IDCO Episode Statistic Recent Date Time End [id number] IDCO Episode Statistic Type Category VT IDCO [...] E162 IDCO Implantable Pulse Generator Serial Number [id number] IDCO Implantable Pulse Generator Operations Lieutenant [place] Scientific IDCO Implantable Pulse Generator Implant Date 20140110 IDCO Implantable Lead Model 4136 IDCO Implantable Lead Serial Number [id number] IDCO Implantable Lead Operations Lieutenant Guidant IDCO Implantable Lead Implant Date 20130421 IDCO Implantable Lead Polarity Type Bipolar Lead IDCO Implantable Lead Location Right Atrium IDCO Implantable Lead Model 0292 IDCO Implantable Lead Serial Number [id number] IDCO Implantable Lead Operations Lieutenant [place] Scientific IDCO Implantable Lead Implant Date IDCO [...] IDCO Lead Channel Pacing Threshold Measurement Method Principal Developer Manual IDCO Lead Channel Pacing Threshold [...] IDCO Lead Channel Pacing Threshold Measurement Method Principal Developer Manual IDCO Lead Channel Pacing Threshold [...] on filedocumented in this encounter Care Teams Change Booth Attendant Relationship Specialty Start Date End Date Dewayne Carrington MD PCP - General 09/02/16 documented as of this encounter
--- OUTSIDE RECORDS SUMMARY | 2024-04-19 15:24 | XMS_ITS | Encounter Summary ---
Author Organization [facility] Address [facility] [place] [address] Care Team Providers Care Otc Clerk Name Role Phone Dewayne Carrington MD Primary Care Provider Encounter Details Date Type Department Care Team (Late st Contact Info) Description 08/21/2020 Notes Only Cardiology at [address] [address] Edy Torres PA [facility] [address] Social History Tobacco Use Types Packs/Day Years [...] Remote Monitoring Interpretation Transmission Date: 08/21/2020 Device Poultry Hanger and Type: [place] [employer] dual lead ICD Battery Status: good; [...] AM EST Hospital Encounter Non-[place] [address] Arrived documented as of this encounter Visit Diagnoses Not on filedocumented in this encounter Care Teams Otc Clerk Relationship Specialty Start Date End Date Dewayne Carrington MD PCP - General 09/02/16 documented as of this encounter
--- OUTSIDE RECORDS SUMMARY | 2024-04-19 15:25 | XMS_ITS | Encounter Summary ---
[place] [address] Care Team Providers Care Manager Traffic Name Role Phone Dewayne Carrington MD Primary Care Provider [phone] Encounter Details Date Type Department Care Team (Late st Contact Info) Description 01/05/2020 Orders Only Cardiology at [address] [phone] Social History Tobacco Use Types Packs/Day Years [...] AM EST Hospital Encounter Non-[place] [address] Arrived documented as of this encounter Procedures Procedure Name Priority Date/Time Associated Diagnosis Comments CARDIAC DEVICE CHECK - REMOTE SCHEDULED Routine 01/05/2020 12:41 AM EDT documented in this encounter Results * Cardiac device check - Remote Scheduled (01/05/2020 12:41 AM EDT) Date Time Interrogation Session [id number] IDCO Type Interrogation Session Remote Scheduled IDCO Clinic Name [facility] IDCO Battery Date Time of Measurements [id number] IDCO Battery Status Beginning of Service IDCO Battery Remaining Longevity 66 mo IDCO Battery Remaining Percentage 77 % IDCO Capacitor Last Charge Date Time IDCO Capacitor Charge Time 11.0 s IDCO Capacitor Charge Type Reformation IDCO Capacitor Last Charge Date Time [id number] IDCO Capacitor Charge Time 3.8 s IDCO Capacitor Charge Energy 21 J IDCO Capacitor Charge Type Shock IDCO Episode Identifier [id number] IDCO Episode Date Time IDCO Episode Type Category Periodic EGM IDCO Episode Vendor Type Category APMRT IDCO Episode Detection And Therapy Details Presenting EGM IDCO Episode Identifier [id number] IDCO Episode Date Time IDCO Episode Type Category Other IDCO Episode Vendor Type Category XANDER IDCO Episode Detection Interval Ventricular 1,000 ms IDCO Episode Duration 58 s IDCO Episode Detection And Therapy Details IDCO Episode Identifier [id number] IDCO Episode Date Time IDCO Episode Type [...] Detection And Therapy Details IDCO Episode Identifier [id number] IDCO Episode Date Time IDCO Episode Type Category Other IDCO Episode Vendor Type Category XANDER IDCO Episode Detection Interval Ventricular 1,111 ms IDCO Episode Duration 59 s IDCO Episode Detection And Therapy Details IDCO Episode Identifier [id number] IDCO Episode Date Time IDCO Episode Type Category Other IDCO Episode Vendor Type Category XANDER IDCO Episode Detection Interval Ventricular 968 ms IDCO Episode Duration 60 s IDCO Episode Detection And Therapy Details IDCO Episode Identifier [id number] IDCO Episode Date Time IDCO Episode Type Category Other IDCO Episode Vendor Type Category XANDER IDCO Episode Detection Interval Ventricular 1,000 ms IDCO Episode Duration 60 s IDCO Episode Detection And Therapy Details RYQ IDCO Episode Identifier [id number] IDCO Episode Date Time IDCO Episode Type Category Other IDCO Episode Vendor Type Category XANDER IDCO Episode Detection Interval Ventricular 1,017 ms IDCO Episode Duration 59 s IDCO Episode Detection And Therapy Details RYQ IDCO Episode Identifier [id number] IDCO Episode Date Time IDCO Episode Type Category Other IDCO Episode Vendor Type Category XANDER IDCO Episode Detection Interval Ventricular 1,091 ms IDCO Episode Duration 60 s IDCO Episode Detection And Therapy Details Q IDCO Episode Identifier [id number] IDCO Episode Date Time IDCO Episode Type Category Other IDCO Episode Vendor Type Category XANDER IDCO Episode Detection Interval Ventricular 1,111 ms IDCO Episode Duration 59 s IDCO Episode Detection And Therapy Details Q IDCO Episode Identifier [id number] IDCO Episode Date Time IDCO Episode Type [...] Episode Identifier [id number] IDCO Episode Date Time [id number] IDCO Episode Type Category VT IDCO Episode [...] E162 IDCO Implantable Pulse Generator Serial Number [id number] IDCO Implantable Pulse Generator Party Plan Sales Unit Advisor [employer] IDCO Implantable Pulse Generator Implant Date 20140110 IDCO Implantable Lead Model 4136 IDCO Implantable Lead Serial Number [id number] IDCO Implantable Lead Party Plan Sales Unit Advisor Guiddelio IDCO Implantable Lead Implant Date 20130421 IDCO Implantable Lead Polarity Type Bipolar Lead IDCO Implantable Lead Location Right Atrium IDCO Implantable Lead Model 0292 IDCO Implantable Lead Serial Number [id number] IDCO Implantable Lead Party Plan Sales Unit Advisor [employer] IDCO Implantable Lead Implant Date IDCO [...] IDCO Lead Channel Pacing Threshold Measurement Method Studio Assistant Manual IDCO Lead Channel Pacing Threshold [...] IDCO Lead Channel Pacing Threshold Measurement Method Studio Assistant Manual IDCO Lead Channel Pacing Threshold [...] filedocumented in this encounter Care Teams Manager Traffic Relationship Specialty Start Date End Date Dewayne Carrington MD PCP - General 09/02/16 documented as of this encounter
--- OUTSIDE RECORDS SUMMARY | 2024-04-19 15:25 | XMS_ITS | Encounter Summary ---
Author Organization [facility] Address [facility] [place] [address] Care Team Providers Care Stone Setter Name Role Phone Dewayne Carrington MD Primary Care Provider [phone] Encounter Details Date Type Department Care Team ([facility] st Contact Info) Description 12/06/2019 Telephone Cardiology at [address] [phone] Chante Robertson RN Social History Tobacco Use [...] AM EST Hospital Encounter Non-[place] [address] Arrived documented as of this encounter Visit Diagnoses Not on filedocumented in this encounter Care Teams Stone Setter Relationship Specialty Start Date End Date Dewayne Carrington MD PCP - General 09/02/16 documented as of this encounter
--- OUTSIDE RECORDS SUMMARY | 2024-04-19 15:25 | XMS_ITS | Encounter Summary ---
[place] [address] Care Team Providers Care Fugitive Investigator Name Role Phone Dewayne Carrington MD Primary Care Provider [phone] Encounter Details Date Type Department Care Team (Late st Contact Info) Description 2020 Orders Only Cardiology at [address] [address] Social History Tobacco Use Types Packs/Day Years [...] AM EST Hospital Encounter [place] [address] Arrived documented as of this encounter Procedures Procedure Name Priority Date/Time Associated Diagnosis Comments CARDIAC DEVICE CHECK - REMOTE DEVICE INITIATED Routine 2020 12:42 AM EST documented in this encounter Results * Cardiac device check - Remote Device Initiated (2020 12:42 AM EST) Date Time Interrogation Session [id number] IDCO Type Interrogation Session Remote Device Initiated [facility] IDCO Battery Date Time of Measurements IDCO [...] E162 IDCO Implantable Pulse Generator Serial Number [id number] IDCO Implantable Pulse Generator Livestock Caretaker [employer] IDCO Implantable Pulse Generator Implant Date 20140110 IDCO Implantable Lead Model 4136 IDCO Implantable Lead Serial Number [id number] IDCO Implantable Lead Livestock Caretaker Guidant IDCO Implantable Lead Implant Date 20130421 IDCO Implantable Lead Polarity Type Bipolar Lead IDCO Implantable Lead Location Right Atrium IDCO Implantable Lead Model 0292 IDCO Implantable Lead Serial Number [id number] IDCO Implantable Lead Livestock Caretaker [employer] IDCO Implantable Lead Implant Date IDCO [...] IDCO Lead Channel Pacing Threshold Measurement Method Pool Nurse Manual IDCO Lead Channel Pacing Threshold Polarity [...] IDCO Lead Channel Pacing Threshold Measurement Method Pool Nurse Manual IDCO Lead Channel Pacing Threshold Polarity [...] on filedocumented in this encounter Care Teams Fugitive Investigator Relationship Specialty Start Date End Date Dewayne Carrington MD PCP - General 09/02/16 documented as of this encounter
--- OUTSIDE RECORDS SUMMARY | 2024-04-19 15:25 | XMS_ITS | Encounter Summary ---
Author Organization [facility] Address [facility] [place] [address] Care Team Providers Care Predictive Maintenance Technician Name Role Phone Dewayne Carrington MD Primary Care Provider [phone] Encounter Details Date Type Department Care Team (Late st Contact Info) Description 03/16/2020 Notes Only Cardiology at [address] [phone] [facility] [place] [address] Social History Tobacco Use Types Packs/Day Years [...] Electronic Device Remote Monitoring Interpretation Marquez Hendrix [id number] Transmission Date: 03/16/2020 Device Type: ICD Generator: [employer] Incepta E162 SN: [id number] Implanted: 04/17/14 Battery Status: 5 years Charge Time: 11 sec Atrial lead status: Amplitude: 5.4 mV Impedance: 797 ? Threshold: 0.7 V @ 0.5 ms Right ventricular lead status: Amplitude: 12.8 mV Impedance: 691 ? Threshold: 0.6 V @ 0.5 ms Shock Impedance: 88 ? Atrial Pacin% Ventricular Pacin% Alerts: Mar 15, 2020 19:00 Atrial Arrhythmia [place] of at least 24.0 hours in a [...] functioning device Edy Burns PA-C 03/16/2020 Pager [phone] documented in this encounter Plan of Treatment Upcoming Encounters Date Type Department Care Team (Late st Contact Info) Description 06/15/2024 10:00 AM EST Hospital Encounter [place] [address] Arrived documented as of this encounter Visit Diagnoses Not on filedocumented in this encounter Care Teams Predictive Maintenance Technician Relationship Specialty Start Date End Date Dewayne Carrington MD PCP - General 09/02/16 documented as of this encounter
--- OUTSIDE RECORDS SUMMARY | 2024-04-19 15:25 | XMS_ITS | Encounter Summary ---
Author Organization [facility] [place] [address] Care Team Providers Care Assembler Sandal Parts Name Role Phone Dewayne Carrington MD Primary Care Provider [phone] Encounter Details Date Type Department Care Team (Late st Contact Info) Description 11/23/2019 Telephone Dermatology at [facility] [address] [place] [phone] Irena Miranda MD Social History Tobacco Use Types Packs/Day [...] st Contact Info) Description 06/15/2024 10:00 AM [facility] Hospital Encounter Non-[place] [address] Arrived documented as of this encounter Visit Diagnoses Not on filedocumented in this encounter Care Teams Assembler Sandal Parts Relationship Specialty Start Date End Date Dewayne Carrington MD PCP - General 09/02/16 documented as of this encounter
--- OUTSIDE RECORDS SUMMARY | 2024-04-19 15:25 | XMS_ITS | Encounter Summary ---
[place] [address] Care Team Providers Care Phone Circuit Operator Name Role Phone Dewayne Carrington MD Primary Care Provider [phone] Reason for Visit * Reason Onset Date Comments Prior Authorization 12/05/2019 tacrolimus ( PROTOPIC) 0.1 % Ointment Encounter Details Date Type Department Care Team ([facility] st Contact Info) Description 12/05/2019 Telephone Dermatology at [facility] [address] [place] [address] [place] CMA Prior Authorization (tacrolimus (PROTOPIC) [...] encounter Miscellaneous Notes * Telephone Encounter - [place] Tin[place] MA - 12/05/2019 10:47 AM EDT Images from the original note were not included. Medication Prior Authorization for Primary Care Approved: Tacrolimus 0.1% ointment Start Date: 12/05/2019 End Date: 04/19/2020 Case/Reference #: [id number] See Approval Letter in scanned documents. Additional Notes: * Telephone Encounter - [place] MA - 12/05/2019 10:03 AM EDT Medication Prior Authorization for Primary [place] [address] Request received via: [facility] Patient: Marquez Hendrix Patient : 1950 Insurance Company: [employer] Sent via: [facility] [place]: [id number] Physician: Irena Miranda MD Medication Requested: tacrolimus [...] Hospital Encounter Non-[place] [address] Arrived documented as of this encounter Visit Diagnoses Not on filedocumented in this encounter Care Teams Phone Circuit Operator Relationship Specialty Start Date End Date Dewayne Carrington MD PCP - General 09/02/16 documented as of this encounter
--- OUTSIDE RECORDS SUMMARY | 2024-04-19 15:25 | XMS_ITS | Encounter Summary ---
Author Organization [facility] Address [facility] [place] [address] Care Team Providers Care Vascular Manager Name Role Phone Dweayne Carrington MD Primary Care Provider Reason for Visit * Reason Comments Rash Encounter Details Date Type Department Care Team (Late st Contact Info) Description 11/15/2019 6:00 PM EDT Office Visit Dermatology at [facility] [address] [place] [address] Irena Miranda MD Lichen simplex chronicus Social History Tobacco Use [...] started using baby wipes. - preferred pharmacy: [id number] AT [facility] Social History: Retired Twice a Family History: [...] with the accuracy of the documentation. Irena Miranad MD Section of Dermatology [facility] documented in this encounter Plan of Treatment Upcoming Encounters Date Type Department Care Team (Late st Contact Info) Description 06/15/2024 10:00 AM EST Hospital Encounter Non[place] [phone] Arrived documented as of this encounter Visit Diagnoses Diagnosis Lichen simplex chronicus Lichenification and lichen simplex chronicus documented in this encounter Care Teams Vascular Manager Relationship Specialty Start Date End Date Dewayne Carrington MD PCP - General 09/02/16 documented as of this encounter
--- OUTSIDE RECORDS SUMMARY | 2024-04-19 15:25 | XMS_ITS | Encounter Summary ---
Author Organization [facility] Address [facility] [place] [address] Care Team Providers Care Senior Software Test Engineer Name Role Phone Dewayne Carrington MD Primary Care Provider [phone] Encounter Details Date Type Department Care Team (Latest Contact Info) Description 01/05/2020 10:49 AM EDT - 01/05/2020 11:59 PM EDT Hospital Encounter [place] [address] Irena Daly MD [facility] [place] [address] Ventricular tachycardia Discharge Disposition: Home Social History [...] AM EST Hospital Encounter [place] [address] Arrived documented as of this encounter Procedures [...] pdf document Date of transmission: 01/05/2020 Device asp net mvc developer: [email or web address] Device type: DC ICD Presenting rhythm: asvs AP 0% GRAPHIC MANAGER 4% Battery: 5.5 years Episodes: Many NSVT [...] tachycardia documented in this encounter Care Teams Senior Software Test Engineer Relationship Specialty Start Date End Date Dewayne Carrington MD PCP - General 09/02/16 documented as of this encounter
--- OUTSIDE RECORDS SUMMARY | 2024-04-19 15:25 | XMS_ITS | Encounter Summary ---
[place] [address] Care Team Providers Care Kit Planner Name Role Phone Dewayne Carrington MD Primary Care Provider [phone] Encounter Details Date Type Department Care Team (Late st Contact Info) Description 02/07/2020 Orders Only Cardiology at [address] [phone] Social History Tobacco Use Types Packs/Day Years [...] AM EST Hospital Encounter Non-[place] [address] Arrived documented as of this encounter Procedures Procedure Name Priority Date/Time Associated Diagnosis Comments CARDIAC DEVICE CHECK - REMOTE DEVICE INITIATED Routine 02/07/2020 12:41 AM EDT documented in this encounter Results * Cardiac device check - Remote Device Initiated (02/07/2020 12:41 AM EDT) Date Time Interrogation Session [id number] IDCO Type Interrogation Session Remote Device Initiated IDCO Clinic Name [facility] IDCO Battery Date Time of Measurements [id number] IDCO Battery Status Beginning of Service IDCO Battery Remaining Longevity 54 mo IDCO Battery Remaining Percentage 67 % IDCO Capacitor Last Charge Date Time [id number] IDCO Capacitor Charge Time 11.0 s IDCO Capacitor Charge Type Reformation IDCO Capacitor Last Charge Date Time [id number] IDCO Capacitor Charge Time 3.8 s IDCO Capacitor Charge Energy 21 J IDCO Capacitor Charge Type Shock IDCO Episode Identifier APM-47 IDCO Episode Date Time [id number] IDCO Episode Type Category Periodic EGM IDCO Episode Vendor Type Category APMRT IDCO Episode Detection And Therapy Details Presenting EGM IDCO Episode Identifier ATR-429 IDCO Episode Date Time IDCO Episode Type Category AT/AF IDCO Episode Vendor Type Category ATR IDCO Episode Detection Interval Atrial 271 ms IDCO Episode Detection And Therapy Details ATR IDCO Episode Identifier ATR-428 IDCO Episode Date Time [id number] IDCO Episode Type Category AT/AF IDCO Episode Vendor Type Category ATR IDCO Episode Detection Interval Atrial 279 ms IDCO Episode Duration 73 s IDCO Episode Detection And Therapy Details ATR IDCO Episode Identifier [id number] IDCO Episode Date Time [id number] IDCO Episode Type Category Other IDCO Episode Vendor Type Category XANDER IDCO Episode Detection Interval Ventricular 938 ms IDCO Episode Duration 54 s IDCO Episode Detection And Therapy Details IDCO Episode Identifier [id number] IDCO Episode Date Time IDCO Episode Type Category Other IDCO Episode Vendor Type Category XANDER IDCO Episode Detection Interval Ventricular 984 ms IDCO Episode Duration 57 s IDCO Episode Detection And Therapy Details IDCO Episode Identifier [id number] IDCO Episode Date Time IDCO Episode Type Category Other IDCO Episode Vendor Type Category XANDER IDCO Episode Detection Interval Ventricular 1,091 ms IDCO Episode Duration 57 s IDCO Episode Detection And Therapy Details [id number] Episode Date Time [id number] IDCO Episode Type Category Other IDCO Episode Vendor Type Category XANDER IDCO Episode Detection Interval Ventricular 1,000 ms IDCO Episode Duration 58 s IDCO Episode Detection And Therapy Details IDCO Episode Identifier [facility]-26428 IDCO Episode Date Time [id number] IDCO Episode Type Category Other IDCO Episode Vendor Type Category XANDER IDCO Episode Detection Interval Ventricular 984 ms IDCO Episode Duration 57 s IDCO Episode Detection And Therapy Details RUST IDCO Episode Identifier [facility]-60900 IDCO Episode Date Time [id number] IDCO Episode Type Category Other IDCO Episode Vendor Type Category XANDER IDCO Episode Detection Interval Ventricular 1,071 ms IDCO Episode Duration 57 s IDCO Episode Detection And Therapy Details RUST IDCO Episode Identifier [facility]-[id number] IDCO Episode Date Time [id number] IDCO Episode Type Category Other IDCO Episode Vendor Type Category XANDER IDCO Episode Detection Interval Ventricular 1,017 ms IDCO Episode Duration 54 s IDCO Episode Detection And Therapy Details RUST IDCO Episode Identifier [facility]-60497 IDCO Episode Date Time [id number] IDCO Episode Type Category Other IDCO Episode Vendor Type Category XANDER IDCO Episode Detection Interval Ventricular 952 ms IDCO Episode Duration 56 s IDCO Episode Detection And Therapy Details RUST IDCO Episode Identifier [facility]-13973 IDCO Episode Date Time [id number] IDCO Episode Type Category Other IDCO Episode Vendor Type Category XANDER IDCO Episode Detection Interval Ventricular 952 ms IDCO Episode Duration 57 s IDCO Episode Detection And Therapy Details RUST IDCO Episode Identifier [facility]-44735 IDCO Episode Date Time [id number] IDCO Episode Type Category Other IDCO Episode Vendor Type Category XANDER IDCO Episode Detection Interval Ventricular 1,091 ms IDCO Episode Duration 57 s IDCO Episode Detection And Therapy Details RUST IDCO Episode Identifier ATR-427 IDCO Episode Date Time [id number] IDCO Episode Type Category AT/AF IDCO Episode Vendor Type Category ATR IDCO Episode Detection Interval Atrial 270 ms IDCO Episode Duration 39,081 s IDCO Episode Detection And Therapy Details ATR IDCO Episode Identifier ATR-426 IDCO Episode Date Time [id number] IDCO Episode Type Category AT/AF IDCO Episode Vendor Type Category ATR IDCO Episode Detection Interval Atrial 247 ms IDCO Episode Duration 610 s IDCO Episode Detection And Therapy Details ATR IDCO Episode Identifier ATR-425 IDCO Episode Date Time [id number] IDCO Episode Type Category AT/AF IDCO Episode Vendor Type Category ATR IDCO Episode Detection Interval Atrial 882 ms IDCO Episode Duration 2 s IDCO Episode Detection And Therapy Details ATR IDCO Episode Identifier ATR-424 IDCO Episode Date Time [id number] IDCO Episode Type Category AT/AF IDCO Episode Vendor Type Category ATR IDCO Episode Detection Interval Atrial 833 ms IDCO Episode Duration 2 s IDCO Episode Detection And Therapy Details ATR IDCO Episode Identifier ATR-423 IDCO Episode Date Time [id number] IDCO Episode Type Category AT/AF IDCO Episode [...] Episode Identifier ATR-421 IDCO Episode Date Time [id number] IDCO Episode Type Category AT/AF IDCO Episode Vendor Type Category ATR IDCO Episode Detection Interval Atrial 896 ms IDCO Episode Duration 1 s IDCO Episode Detection And Therapy Details ATR IDCO Episode Identifier [id number] IDCO Episode Date Time [id number] IDCO Episode Type Category VT IDCO Episode Vendor Type Category NSVT IDCO Episode Type Induced Flag NO IDCO Episode Detection Interval Ventricular 432 ms IDCO Episode Duration 8 s IDCO Episode Detection And Therapy Details NonSustV IDCO Episode Identifier ATR-420 IDCO Episode Date Time [id number] IDCO Episode Type Category AT/AF IDCO Episode Vendor Type Category ATR IDCO Episode Detection Interval Atrial 234 ms IDCO Episode Duration 17,622 s IDCO Episode Detection And Therapy Details ATR IDCO Episode Identifier ATR-419 IDCO Episode Date Time [id number] IDCO Episode Type Category AT/AF IDCO Episode Vendor Type Category ATR IDCO Episode Detection Interval Atrial 698 ms IDCO Episode Duration 5 s IDCO Episode Detection And Therapy Details ATR IDCO Episode Identifier V IDCO Episode Date Time [id number] IDCO Episode Type Category VT IDCO Episode Vendor Type Category NSVT IDCO Episode Type Induced Flag NO IDCO Episode Detection Interval Ventricular 405 ms IDCO Episode Duration 6 s IDCO Episode Detection And Therapy Details NonSustV IDCO Episode Identifier IDCO Episode Date Time [id number] IDCO Episode Type Category VT IDCO Episode [...] IDCO Episode Identifier IDCO Episode Date Time [id number] IDCO Episode Type Category VT IDCO Episode [...] E162 IDCO Implantable Pulse Generator Serial Number [id number] IDCO Implantable Pulse Generator Dimmer Board Operator [place] [employer] IDCO Implantable Pulse Generator Implant Date 20140110 IDCO Implantable Lead Model 4136 IDCO Implantable Lead Serial Number [id number] IDCO Implantable Lead Dimmer Board Operator Guidant IDCO Implantable Lead Implant Date 20130421 IDCO Implantable Lead Polarity Type Bipolar Lead IDCO Implantable Lead Location Right Atrium IDCO Implantable Lead Model 0292 IDCO Implantable Lead Serial Number [id number] IDCO Implantable Lead Dimmer Board Operator [place] [employer] IDCO Implantable Lead Implant Date IDCO [...] IDCO Lead Channel Pacing Threshold Measurement Method Door Opener Manual IDCO Lead Channel Pacing Threshold Polarity [...] IDCO Lead Channel Pacing Threshold Measurement Method Door Opener Manual IDCO Lead Channel Pacing Threshold Polarity [...] on filedocumented in this encounter Care Teams Kit Planner Relationship Specialty Start Date End Date Dewayne Carrington MD PCP - General 09/02/16 documented as of this encounter
--- OUTSIDE RECORDS SUMMARY | 2024-04-19 15:25 | XMS_ITS | Encounter Summary ---
[place] [address] Care Team Providers Care Mattress Weaver Name Role Phone Dewayne Carrington MD Primary Care Provider [phone] Encounter Details Date Type Department Care Team (Late st Contact Info) Description 12/06/2019 Orders Only Cardiology at [address] [phone] Social History Tobacco Use Types Packs/Day Years [...] AM EST Hospital Encounter [place] [address] Arrived documented as of this encounter Procedures Procedure Name Priority Date/Time Associated Diagnosis Comments CARDIAC DEVICE CHECK - REMOTE DEVICE INITIATED Routine 12/06/2019 12:54 AM EDT documented in this encounter Results * Cardiac device check - Remote Device Initiated (12/06/2019 12:54 AM EDT) Date Time Interrogation Session [id number] IDCO Type Interrogation Session Remote Device Initiated [facility] IDCO Battery Date Time of Measurements [id number] IDCO Battery Status Beginning of Service IDCO Battery Remaining Longevity 60 mo IDCO Battery Remaining Percentage 72 % IDCO Capacitor Last Charge Date Time IDCO Capacitor Charge Time 11.0 s IDCO Capacitor Charge Type Reformation IDCO Capacitor Last Charge Date Time [id number] IDCO Capacitor Charge Time 3.8 s IDCO Capacitor Charge Energy 21 J IDCO Capacitor Charge Type Shock IDCO Episode Identifier [id number] IDCO Episode Date Time [id number] IDCO Episode Type Category Periodic EGM IDCO [...] And Therapy Details ATR IDCO Episode Identifier [id number] IDCO Episode Date Time [id number] IDCO Episode Type Category Other IDCO Episode Vendor Type Category XANDER IDCO Episode Detection Interval Ventricular 1,053 ms IDCO Episode Duration 54 s IDCO Episode Detection And Therapy Details IDCO Episode Identifier [id number] IDCO Episode Date Time [id number] IDCO Episode Type Category Other IDCO Episode Vendor Type Category XANDER IDCO Episode Detection Interval Ventricular 938 ms IDCO Episode Duration 56 s IDCO Episode Detection And Therapy Details IDCO Episode Identifier [id number] IDCO Episode Date Time [id number] IDCO Episode Type Category Other IDCO Episode Vendor Type Category XANDER IDCO Episode Detection Interval Ventricular 952 ms IDCO Episode Duration 54 s IDCO Episode Detection And Therapy Details IDCO Episode Identifier [id number] IDCO Episode Date Time [id number] IDCO Episode Type Category Other IDCO Episode Vendor Type Category XANDER IDCO Episode Detection Interval Ventricular 1,017 ms IDCO Episode Duration 56 s IDCO Episode Detection And Therapy Details IDCO Episode Identifier [id number] IDCO Episode Date Time [id number] IDCO Episode Type Category Other IDCO Episode Vendor Type Category XANDER IDCO Episode Detection Interval Ventricular 833 ms IDCO Episode Duration 49 s IDCO Episode Detection And Therapy Details Q IDCO Episode Identifier [id number] IDCO Episode Date Time [id number] IDCO Episode Type Category Other IDCO Episode Vendor Type Category XANDER IDCO Episode Detection Interval Ventricular 938 ms IDCO Episode Duration 50 s IDCO Episode Detection And Therapy Details Q IDCO Episode Identifier [id number] IDCO Episode Date Time [id number] IDCO Episode Type Category Other IDCO Episode Vendor Type Category XANDER IDCO Episode Detection Interval Ventricular 938 ms IDCO Episode Duration 57 s IDCO Episode Detection And Therapy Details IDCO Episode Identifier -[id number] IDCO Episode Date Time [id number] IDCO Episode Type Category Other IDCO Episode Vendor Type Category XANDER IDCO Episode Detection Interval Ventricular 923 ms IDCO Episode Duration 55 s IDCO Episode Detection And Therapy Details IDCO Episode Identifier -[id number] IDCO Episode Date Time [id number] IDCO Episode Type Category Other IDCO Episode Vendor Type Category XANDER IDCO Episode Detection Interval Ventricular 909 ms IDCO Episode Duration 54 s IDCO Episode Detection And Therapy Details IDCO Episode Identifier [id number] IDCO Episode Date Time [id number] IDCO Episode Type Category Other IDCO Episode Vendor Type Category XANDER IDCO Episode Detection Interval Ventricular 923 ms IDCO Episode Duration 55 s IDCO Episode Detection And Therapy Details IDCO Episode Identifier [id number] IDCO Episode Date Time [id number] IDCO Episode Type Category AT/AF IDCO Episode Vendor Type Category ATR IDCO Episode Detection Interval Atrial 252 ms IDCO Episode Duration 7 s IDCO Episode Detection And Therapy Details ATR IDCO Episode Identifier IDCO Episode Date Time [id number] IDCO Episode Type Category VT IDCO Episode Vendor Type Category NSVT IDCO Episode Type Induced Flag NO IDCO Episode Detection Interval Ventricular 390 ms IDCO Episode Duration 6 s IDCO Episode Detection And Therapy Details NonSustV IDCO Episode Identifier IDCO Episode Date Time [id number] IDCO Episode Type Category VT IDCO Episode Vendor Type Category NSVT IDCO Episode Type Induced Flag NO IDCO Episode Detection Interval Ventricular 397 ms IDCO Episode Duration 6 s IDCO Episode Detection And Therapy Details NonSustV IDCO Episode Identifier IDCO Episode Date Time [id number] IDCO Episode Type Category VT IDCO Episode Vendor Type Category NSVT IDCO Episode Type Induced Flag NO IDCO Episode Detection Interval Ventricular 390 ms IDCO Episode Duration 8 s IDCO Episode Detection And Therapy Details NonSustV IDCO Episode Identifier IDCO Episode Date Time [id number] IDCO Episode Type Category VT IDCO Episode Vendor Type Category NSVT IDCO Episode Type Induced Flag NO IDCO Episode Detection Interval Ventricular 387 ms IDCO Episode Duration 9 s IDCO Episode Detection And Therapy Details NonSustV IDCO Episode Identifier V IDCO Episode Date Time [id number] IDCO Episode Type Category VT IDCO Episode Vendor Type Category NSVT IDCO Episode Type Induced Flag NO IDCO Episode Detection Interval Ventricular 395 ms IDCO Episode Duration 6 s IDCO Episode Detection And Therapy Details NonSustV IDCO Episode Identifier [id number] IDCO Episode Date Time [id number] IDCO Episode Type Category AT/AF IDCO Episode [...] E162 IDCO Implantable Pulse Generator Serial Number [id number] IDCO Implantable Pulse Generator Waste Removalist [place] [employer] IDCO Implantable Pulse Generator Implant Date 20140110 IDCO Implantable Lead Model 4136 IDCO Implantable Lead Serial Number [id number] IDCO Implantable Lead Waste Removalist Guidant IDCO Implantable Lead Implant Date 20130421 IDCO Implantable Lead Polarity Type Bipolar Lead IDCO Implantable Lead Location Right Atrium IDCO Implantable Lead Model 0292 IDCO Implantable Lead Serial Number [id number] IDCO Implantable Lead Waste Removalist [place] [employer] IDCO Implantable Lead Implant Date IDCO [...] IDCO Lead Channel Pacing Threshold Measurement Method Wetlands Conservation Laborer Manual IDCO Lead Channel Pacing Threshold Polarity [...] IDCO Lead Channel Pacing Threshold Measurement Method Wetlands Conservation Laborer Manual IDCO Lead Channel Pacing Threshold Polarity [...] on filedocumented in this encounter Care Teams Mattress Weaver Relationship Specialty Start Date End Date Dewayne Carrington MD PCP - General 09/02/16 documented as of this encounter
--- OUTSIDE RECORDS SUMMARY | 2024-04-19 15:25 | XMS_ITS | Encounter Summary ---
[place] [address] Care Team Providers Care Filing Machine Operator Name Role Phone Dewayne Carrington MD Primary Care Provider [phone] Encounter Details Date Type Department Care Team (Late st Contact Info) Description 12/06/2019 Orders Only Cardiology at [address] [address] Social History Tobacco Use Types Packs/Day Years [...] AM EST Hospital Encounter Non-[place] [address] Arrived documented as of this encounter Procedures Procedure Name Priority Date/Time Associated Diagnosis Comments CARDIAC DEVICE CHECK - REMOTE PATIENT INITIATED Routine 12/06/2019 12:55 PM EDT documented in this encounter Results * Cardiac device check - Remote Patient Initiated (12/06/2019 12:55 PM EDT) Date Time Interrogation Session [id number] IDCO Type Interrogation Session Remote Patient Initiated IDCO Clinic Name [facility] IDCO Battery Date Time of Measurements [id number] IDCO Battery Status Beginning of Service IDCO [...] Rate 130 {beats}/ min IDCO Albaro Setting CORNIE Delay High 65 ms IDCO Albaro Setting [...] E162 IDCO Implantable Pulse Generator Serial Number [id number] IDCO Implantable Pulse Generator Legal Officer [place] [employer] IDCO Implantable Pulse Generator Implant Date 20140110 IDCO Implantable Lead Model 4136 IDCO Implantable Lead Serial Number [id number] IDCO Implantable Lead Legal Officer Guidant IDCO Implantable Lead Implant Date 20130421 IDCO Implantable Lead Polarity Type Bipolar Lead IDCO Implantable Lead Location Right Atrium IDCO Implantable Lead Model 0292 IDCO Implantable Lead Serial Number [id number] IDCO Implantable Lead Legal Officer [place] [employer] IDCO Implantable Lead Implant Date IDCO [...] IDCO Lead Channel Pacing Threshold Measurement Method Inserter Operator Manual IDCO Lead Channel Pacing Threshold [...] IDCO Lead Channel Pacing Threshold Measurement Method Inserter Operator Manual IDCO Lead Channel Pacing Threshold [...] on filedocumented in this encounter Care Teams Filing Machine Operator Relationship Specialty Start Date End Date Dewayne Carrington MD PCP - General 09/02/16 documented as of this encounter
--- OUTSIDE RECORDS SUMMARY | 2024-04-19 15:25 | XMS_ITS | Encounter Summary ---
Author Organization [facility] [place] [address] Care Team Providers Care Glass Sander Belt Name Role Phone Dewayne Carrington MD Primary Care Provider Encounter Details Date Type Department Care Team (Late st Contact Info) Description 10/26/2019 Telephone Cardiology at [address] [phone] Chante Robertson RN Social History Tobacco Use [...] had high ventricular rates in 170's frm [id number] alerted on his remote The real time EGM showed AF with V-paces and V rates in the 90's documented in this encounter Plan of Treatment Upcoming Encounters Date Type Department Care Team (Late st Contact Info) Description 06/15/2024 10:00 AM EST Hospital Encounter [place] [address] Arrived documented as of this encounter Visit Diagnoses Not on filedocumented in this encounter Care Teams Glass Sander Belt Relationship Specialty Start Date End Date Dewayne Carrington MD PCP - General 09/02/16 documented as of this encounter
--- OUTSIDE RECORDS SUMMARY | 2024-04-19 15:25 | XMS_ITS | Encounter Summary ---
[place] [address] Care Team Providers Care Environmental Attorney Name Role Phone Dewayne Carrington MD Primary Care Provider [phone] Encounter Details Date Type Department Care Team (Late st Contact Info) Description 11/12/2019 Orders Only Cardiology at [address] [address] Social History Tobacco Use Types Packs/Day Years [...] Hospital Encounter Non-[place] [address] Arrived documented as of this encounter Procedures Procedure Name Priority Date/Time Associated Diagnosis Comments CARDIAC DEVICE CHECK - REMOTE DEVICE INITIATED Routine 11/12/2019 12:43 AM EDT documented in this encounter Results * Cardiac device check - Remote Device Initiated (11/12/2019 12:43 AM EDT) Date Time Interrogation Session [id number] IDCO Type Interrogation Session Remote Device Initiated [facility] IDCO Battery Date Time of Measurements [id number] IDCO Battery Status Beginning of Service IDCO Battery Remaining Longevity 60 mo IDCO Battery Remaining Percentage 72 % IDCO Capacitor Last Charge Date Time IDCO Capacitor Charge Time 11.0 s IDCO Capacitor Charge Type Reformation IDCO Capacitor Last Charge Date Time [id number] IDCO Capacitor Charge Time 3.8 s IDCO Capacitor Charge Energy 21 J IDCO Capacitor Charge Type Shock IDCO Episode Identifier [id number] IDCO Episode Date Time [id number] IDCO Episode Type Category Periodic EGM IDCO [...] And Therapy Details ATR IDCO Episode Identifier [id number] IDCO Episode Date Time IDCO Episode Type Category Other IDCO Episode Vendor Type Category XANDER IDCO Episode Detection Interval Ventricular 1,000 ms IDCO Episode Duration 53 s IDCO Episode Detection And Therapy Details Q IDCO Episode Identifier [id number] IDCO Episode Date Time IDCO Episode Type Category Other IDCO Episode Vendor Type Category XANDER IDCO Episode Detection Interval Ventricular 1,000 ms IDCO Episode Duration 54 s IDCO Episode Detection And Therapy Details Q IDCO Episode Identifier [id number] IDCO Episode Date Time IDCO Episode Type Category Other IDCO Episode Vendor Type Category XANDER IDCO Episode Detection Interval Ventricular 984 ms IDCO Episode Duration 54 s IDCO Episode Detection And Therapy Details IDCO Episode Identifier [id number] IDCO Episode Date Time IDCO Episode Type Category Other IDCO Episode Vendor Type Category XANDER IDCO Episode Detection Interval Ventricular 1,000 ms IDCO Episode Duration 54 s IDCO Episode Detection And Therapy Details Q IDCO Episode Identifier [id number] IDCO Episode Date Time IDCO Episode Type Category Other IDCO Episode Vendor Type Category XANDER IDCO Episode Detection Interval Ventricular 938 ms IDCO Episode Duration 54 s IDCO Episode Detection And Therapy Details IDCO Episode Identifier [id number] IDCO Episode Date Time IDCO Episode Type Category Other IDCO Episode Vendor Type Category XANDER IDCO Episode Detection Interval Ventricular 1,017 ms IDCO Episode Duration 53 s IDCO Episode Detection And Therapy Details Q IDCO Episode Identifier [id number] IDCO Episode Date Time [id number] IDCO Episode Type Category Other IDCO Episode Vendor Type Category XANDER IDCO Episode Detection Interval Ventricular 1,364 ms IDCO Episode Duration 60 s IDCO Episode Detection And Therapy Details Q IDCO Episode Identifier [id number] IDCO Episode Date Time IDCO Episode Type Category Other IDCO Episode Vendor Type Category XANDER IDCO Episode Detection Interval Ventricular 1,071 ms IDCO Episode Duration 61 s IDCO Episode Detection And Therapy Details IDCO Episode Identifier [id number] IDCO Episode Date Time IDCO Episode Type Category Other IDCO Episode Vendor Type Category XANDER IDCO Episode Detection Interval Ventricular 984 ms IDCO Episode Duration 61 s IDCO Episode Detection And Therapy Details IDCO Episode Identifier [id number] IDCO Episode Date Time IDCO Episode Type [...] Episode Identifier [id number] IDCO Episode Date Time [id number] IDCO Episode Type Category AT/AF IDCO Episode Vendor Type Category ATR IDCO Episode Detection Interval Atrial 287 ms IDCO Episode Duration 32 s IDCO Episode Detection And Therapy Details ATR IDCO Episode Identifier [id number] IDCO Episode Date Time [id number] IDCO Episode Type Category AT/AF IDCO Episode [...] E162 IDCO Implantable Pulse Generator Serial Number [id number] IDCO Implantable Pulse Generator Maintenance Leader [place] [employer] IDCO Implantable Pulse Generator Implant Date 20140110 IDCO Implantable Lead Model 4136 IDCO Implantable Lead Serial Number [id number] IDCO Implantable Lead Maintenance Leader Guidant IDCO Implantable Lead Implant Date 20130421 IDCO Implantable Lead Polarity Type Bipolar Lead IDCO Implantable Lead Location Right Atrium IDCO Implantable Lead Model 0292 IDCO Implantable Lead Serial Number [id number] IDCO Implantable Lead Maintenance Leader [place] [employer] IDCO Implantable Lead Implant Date IDCO [...] IDCO Lead Channel Pacing Threshold Measurement Method Doping Supervisor Manual IDCO Lead Channel Pacing Threshold [...] IDCO Lead Channel Pacing Threshold Measurement Method Doping Supervisor Manual IDCO Lead Channel Pacing Threshold [...] on filedocumented in this encounter Care Teams Environmental Attorney Relationship Specialty Start Date End Date Dewayne Carrington MD PCP - General 09/02/16 documented as of this encounter
--- OUTSIDE RECORDS SUMMARY | 2024-04-19 15:25 | XMS_ITS | Encounter Summary ---
[facility] [place] [address] Care Team Providers Care Fruit Grower Name Role Phone Dewayne Carrington MD Primary Care Provider [phone] Encounter Details Date Type Department Care Team ([facility] st Contact Info) Description 12/06/2019 Telephone Cardiology at [address] [phone] Chante Robertson RN Social History Tobacco Use [...] AM EST Hospital Encounter Non-In[place] [address] Arrived documented as of this encounter Visit Diagnoses Not on filedocumented in this encounter Care Teams Fruit Grower Relationship Specialty Start Date End Date Dewayne Carrington MD PCP - General 09/02/16 documented as of this encounter
--- OUTSIDE RECORDS SUMMARY | 2024-04-19 15:25 | XMS_ITS | Encounter Summary ---
Author Organization [facility] Address [facility] [place] [address] Care Team Providers Care Corporate Legal Manager Name Role Phone Dewayne Carrington MD Primary Care Provider [phone] Encounter Details Date Type Department Care Team (Late st Contact Info) Description 11/14/2019 Notes Only Cardiology at [address] [phone] Edy Torres PA [facility] [place] [address] Social History Tobacco Use Types Packs/Day Years [...] Transmission Date: 11/12/2019 Device Type: ICD Generator telephone engineer: BSC Battery Status: good; five years Atrial [...] Contact Info) Description 06/15/2024 10:00 AM [facility] Hospital Encounter Non-[place] [phone] Arrived documented as of this encounter Visit Diagnoses Not on filedocumented in this encounter Care Teams Corporate Legal Manager Relationship Specialty Start Date End Date Dewayne Carrington MD PCP - General 09/02/16 documented as of this encounter
--- OUTSIDE RECORDS SUMMARY | 2024-04-19 15:25 | XMS_ITS | Encounter Summary ---
[place] [address] Care Team Providers Care Surgical Consultant Name Role Phone Dewayne Carrington MD Primary Care Provider [phone] Encounter Details Date Type Department Care Team (Late st Contact Info) Description 04/16/2020 Orders Only Cardiology at [address] [phone] Social History Tobacco Use Types Packs/Day Years [...] AM EST Hospital Encounter Non-[place] [address] Arrived documented as of this encounter Procedures Procedure Name Priority Date/Time Associated Diagnosis Comments CARDIAC DEVICE CHECK - REMOTE DEVICE INITIATED Routine 04/16/2020 12:41 AM EST documented in this encounter Results * Cardiac device check - Remote Device Initiated (04/16/2020 12:41 AM EST) Date Time Interrogation Session [id number] IDCO Type Interrogation Session Remote Device Initiated IDCO Clinic Name [facility] IDCO Battery Date Time of Measurements [id number] IDCO Battery Status Beginning of Service IDCO Battery Remaining Longevity 42 mo IDCO Battery Remaining Percentage 51 % IDCO Capacitor Last Charge Date Time [id number] IDCO Capacitor Charge Time 11.1 s IDCO Capacitor Charge Type Reformation IDCO Capacitor Last Charge Date Time [id number] IDCO Capacitor Charge Time 3.8 s IDCO Capacitor Charge Energy 21 J IDCO Capacitor Charge Type Shock IDCO Episode Identifier APM-49 IDCO Episode Date Time [id number] IDCO Episode Type Category Periodic EGM IDCO Episode Vendor Type Category APMRT IDCO Episode Detection And Therapy Details Presenting EGM IDCO Episode Identifier [id number] IDCO Episode Date Time [id number] IDCO Episode Type Category VT IDCO Episode Vendor Type Category NSVT IDCO Episode Type Induced Flag NO IDCO Episode Detection Interval Ventricular 395 ms IDCO Episode Duration 8 s IDCO Episode Detection And Therapy Details NonSustV IDCO Episode Identifier IDCO Episode Date Time [id number] IDCO Episode Type Category VT IDCO Episode Vendor Type Category NSVT IDCO Episode Type Induced Flag NO IDCO Episode Detection Interval Ventricular 395 ms IDCO Episode Duration 9 s IDCO Episode Detection And Therapy Details NonSustV IDCO Episode Identifier IDCO Episode Date Time [id number] IDCO Episode Type Category VT IDCO Episode Vendor Type Category NSVT IDCO Episode Type Induced Flag NO IDCO Episode Detection Interval Ventricular 380 ms IDCO Episode Duration 8 s IDCO Episode Detection And Therapy Details NonSustV IDCO Episode Identifier IDCO Episode Date Time [id number] IDCO Episode Type Category VT IDCO Episode Vendor Type Category NSVT IDCO Episode Type Induced Flag NO IDCO Episode Detection Interval Ventricular 385 ms IDCO Episode Duration 8 s IDCO Episode Detection And Therapy Details NonSustV IDCO Episode Identifier IDCO Episode Date Time [id number] IDCO Episode Type Category VT IDCO Episode Vendor Type Category NSVT IDCO Episode Type Induced Flag NO IDCO Episode Detection Interval Ventricular 382 ms IDCO Episode Duration 7 s IDCO Episode Detection And Therapy Details NonSustV IDCO Episode Identifier IDCO Episode Date Time [id number] IDCO Episode Type Category VT IDCO Episode Vendor Type Category NSVT IDCO Episode Type Induced Flag NO IDCO Episode Detection Interval Ventricular 380 ms IDCO Episode Duration 7 s IDCO Episode Detection And Therapy Details NonSustV IDCO Episode Identifier [id number] IDCO Episode Date Time [id number] IDCO Episode Type Category VT IDCO Episode Vendor Type Category NSVT IDCO Episode Type Induced Flag NO IDCO Episode Detection Interval Ventricular 387 ms IDCO Episode Duration 8 s IDCO Episode Detection And Therapy Details NonSustV IDCO Episode Identifier [id number] IDCO Episode Date Time [id number] IDCO Episode Type Category VT IDCO Episode Vendor Type Category NSVT IDCO Episode Type Induced Flag NO IDCO Episode Detection Interval Ventricular 392 ms IDCO Episode Duration 8 s IDCO Episode Detection And Therapy Details NonSustV IDCO Episode Identifier [id number] IDCO Episode Date Time [id number] IDCO Episode Type Category VT IDCO Episode Vendor Type Category NSVT IDCO Episode Type Induced Flag NO IDCO Episode Detection Interval Ventricular 385 ms IDCO Episode Duration 8 s IDCO Episode Detection And Therapy Details NonSustV IDCO Episode Identifier [id number] IDCO Episode Date Time [id number] IDCO Episode Type Category VT IDCO Episode [...] E162 IDCO Implantable Pulse Generator Serial Number [id number] IDCO Implantable Pulse Generator Addresser [place] [employer] IDCO Implantable Pulse Generator Implant Date 20140110 IDCO Implantable Lead Model 4136 IDCO Implantable Lead Serial Number [id number] IDCO Implantable Lead Addresser Guidant IDCO Implantable Lead Implant Date 20130421 IDCO Implantable Lead Polarity Type Bipolar Lead IDCO Implantable Lead Location Right Atrium IDCO Implantable Lead Model 0292 IDCO Implantable Lead Serial Number [id number] IDCO Implantable Lead Addresser [place] [employer] IDCO Implantable Lead Implant Date IDCO [...] IDCO Lead Channel Pacing Threshold Measurement Method Cylinder Filler Manual IDCO Lead Channel Pacing Threshold Polarity [...] IDCO Lead Channel Pacing Threshold Measurement Method Cylinder Filler Manual IDCO Lead Channel Pacing Threshold Polarity [...] on filedocumented in this encounter Care Teams Surgical Consultant Relationship Specialty Start Date End Date Dewayne Carrington MD PCP - General 09/02/16 documented as of this encounter
--- OUTSIDE RECORDS SUMMARY | 2024-04-19 15:25 | XMS_ITS | Encounter Summary ---
Author Organization [facility] Address [facility] [place] [address] Care Team Providers Care Structurer Name Role Phone Dewayne Carrington MD Primary Care Provider [phone] Encounter Details Date Type Department Care Team (Late Contact Info) Description 11/17/2019 Telephone Dermatology at [facility] [address] [place] [address] Irena Miranda MD Social History Tobacco Use [...] Upcoming Encounters Date Type Department Care Team ([facility] Contact Info) Description 06/15/2024 10:00 AM EST Hospital Encounter [place] [address] Arrived documented as of this encounter Visit Diagnoses Not on filedocumented in this encounter Care Teams Structurer Relationship Specialty Start Date End Date Dewayne Carrington MD PCP - General 09/02/16 documented as of this encounter
--- OUTSIDE RECORDS SUMMARY | 2024-04-19 15:25 | XMS_ITS | Encounter Summary ---
[place] [address] Care Team Providers Care Local Tanker Truck Driver Name Role Phone Dewayne Carrington MD Primary Care Provider [phone] Encounter Details Date Type Department Care Team (Late st Contact Info) Description 03/16/2020 Orders Only Cardiology at [address] [phone] Social History Tobacco Use Types Packs/Day Years [...] AM EST Hospital Encounter [place] [address] Arrived documented as of this encounter Procedures Procedure Name Priority Date/Time Associated Diagnosis Comments CARDIAC DEVICE CHECK - REMOTE DEVICE INITIATED Routine 03/16/2020 12:42 AM EST documented in this encounter Results * Cardiac device check - Remote Device Initiated (03/16/2020 12:42 AM EST) Date Time Interrogation Session [id number] IDCO Type Interrogation Session Remote Device Initiated IDCO Clinic Name [facility] IDCO Battery Date Time of Measurements [id number] IDCO Battery Status Beginning of Service IDCO Battery Remaining Longevity 60 mo IDCO Battery Remaining Percentage 70 % IDCO Capacitor Last Charge Date Time IDCO Capacitor Charge Time 11.0 s IDCO Capacitor Charge Type Reformation IDCO Capacitor Last Charge Date Time [id number] IDCO Capacitor Charge Time 3.8 s IDCO [...] And Therapy Details ATR IDCO Episode Identifier [id number] IDCO Episode Date Time [id number] IDCO Episode Type Category Other IDCO Episode Vendor Type Category XANDER IDCO Episode Detection Interval Ventricular 923 ms IDCO Episode Duration 45 s IDCO Episode Detection And Therapy Details IDCO Episode Identifier 73 IDCO Episode Date Time [id number] IDCO Episode Type Category Other IDCO Episode Vendor Type Category XANDER IDCO Episode Detection Interval Ventricular 909 ms IDCO Episode Duration 54 s IDCO Episode Detection And Therapy Details IDCO Episode Identifier -[id number] IDCO Episode Date Time [id number] IDCO Episode Type Category Other IDCO Episode Vendor Type Category XANDER IDCO Episode Detection Interval Ventricular 909 ms IDCO Episode Duration 53 s IDCO Episode Detection And Therapy Details IDCO Episode Identifier -[id number] IDCO Episode Date Time [id number] IDCO Episode Type Category Other IDCO Episode Vendor Type Category XANDER IDCO Episode Detection Interval Ventricular 923 ms IDCO Episode Duration 54 s IDCO Episode Detection And Therapy Details IDCO Episode Identifier [id number] IDCO Episode Date Time IDCO Episode Type Category Other IDCO Episode Vendor Type Category XANDER IDCO Episode Detection Interval Ventricular 909 ms IDCO Episode Duration 52 s IDCO Episode Detection And Therapy Details IDCO Episode Identifier [facility]-[id number] IDCO Episode Date Time [id number] IDCO Episode Type Category Other IDCO Episode Vendor Type Category XANDER IDCO Episode Detection Interval Ventricular 896 ms IDCO Episode Duration 53 s IDCO Episode Detection And Therapy Details [facility] IDCO Episode Identifier [facility]-[id number] IDCO Episode Date Time [id number] IDCO Episode Type Category Other IDCO Episode Vendor Type Category XANDER IDCO Episode Detection Interval Ventricular 909 ms IDCO Episode Duration 54 s IDCO Episode Detection And Therapy Details [facility] IDCO Episode Identifier [facility]-[id number] IDCO Episode Date Time [id number] IDCO Episode Type Category Other IDCO Episode Vendor Type Category XANDER IDCO Episode Detection Interval Ventricular 968 ms IDCO Episode Duration 57 s IDCO Episode Detection And Therapy Details [facility] IDCO Episode Identifier [facility]-[id number] IDCO Episode Date Time [id number] IDCO Episode Type Category Other IDCO Episode Vendor Type Category XANDER IDCO Episode Detection Interval Ventricular 923 ms IDCO Episode Duration 55 s IDCO Episode Detection And Therapy Details [facility] IDCO Episode Identifier [facility]-[id number] IDCO Episode Date Time [id number] IDCO Episode Type Category Other IDCO Episode Vendor Type Category XANDER IDCO Episode Detection Interval Ventricular 923 ms IDCO Episode Duration 54 s IDCO Episode Detection And Therapy Details [facility] IDCO Episode Identifier [id number] IDCO Episode Date Time [id number] IDCO Episode Type Category AT/AF IDCO Episode Vendor Type Category ATR IDCO Episode Detection Interval Atrial 299 ms IDCO Episode Duration 21,668 s IDCO Episode Detection And Therapy Details ATR IDCO Episode Identifier [id number]-430 IDCO Episode Date Time [id number] IDCO Episode Type Category AT/AF IDCO Episode Vendor Type Category ATR IDCO Episode Detection Interval Atrial 267 ms IDCO Episode Duration 12 s IDCO Episode Detection And Therapy Details ATR IDCO Episode Identifier V IDCO Episode Date Time [id number] IDCO Episode Type Category VT IDCO Episode Vendor Type Category NSVT IDCO Episode Type Induced Flag NO IDCO Episode Detection Interval Ventricular 382 ms IDCO Episode Duration 6 s IDCO Episode Detection And Therapy Details NonSustV IDCO Episode Identifier V IDCO Episode Date Time [id number] IDCO Episode Type Category VT IDCO Episode Vendor Type Category NSVT IDCO Episode Type Induced Flag NO IDCO Episode Detection Interval Ventricular 397 ms IDCO Episode Duration 6 s IDCO Episode Detection And Therapy Details NonSustV IDCO Episode Identifier IDCO Episode Date Time [id number] IDCO Episode Type Category VT IDCO Episode Vendor Type Category NSVT IDCO Episode Type Induced Flag NO IDCO Episode Detection Interval Ventricular 375 ms IDCO Episode Duration 6 s IDCO Episode Detection And Therapy Details NonSustV IDCO Episode Identifier IDCO Episode Date Time [id number] IDCO Episode Type Category VT IDCO Episode Vendor Type Category NSVT IDCO Episode Type Induced Flag NO IDCO Episode Detection Interval Ventricular 375 ms IDCO Episode Duration 6 s IDCO Episode Detection And Therapy Details NonSustV IDCO Episode Identifier IDCO Episode Date Time [id number] IDCO Episode Type Category VT IDCO Episode Vendor Type Category NSVT IDCO Episode Type Induced Flag NO IDCO Episode Detection Interval Ventricular 375 ms IDCO Episode Duration 7 s IDCO Episode Detection And Therapy Details NonSustV IDCO Episode Identifier IDCO Episode Date Time [id number] IDCO Episode Type Category VT IDCO Episode Vendor Type Category NSVT IDCO Episode Type Induced Flag NO IDCO Episode Detection Interval Ventricular 377 ms IDCO Episode Duration 5 s IDCO Episode Detection And Therapy Details NonSustV IDCO Episode Identifier IDCO Episode Date Time [id number] IDCO Episode Type Category VT IDCO Episode Vendor Type Category NSVT IDCO Episode Type Induced Flag NO IDCO Episode Detection Interval Ventricular 429 ms IDCO Episode Duration 6 s IDCO Episode Detection And Therapy Details NonSustV IDCO Episode Identifier IDCO Episode Date Time [id number] IDCO Episode Type Category VT IDCO Episode Vendor Type Category NSVT IDCO Episode Type Induced Flag NO IDCO Episode Detection Interval Ventricular 385 ms IDCO Episode Duration 6 s IDCO Episode Detection And Therapy Details NonSustV IDCO Episode Identifier IDCO Episode Date Time [id number] IDCO Episode Type Category VT IDCO Episode Vendor Type Category NSVT IDCO Episode Type Induced Flag NO IDCO Episode Detection Interval Ventricular 382 ms IDCO Episode Duration 6 s IDCO Episode Detection And Therapy Details NonSustV IDCO Episode Identifier IDCO Episode Date Time [id number] IDCO Episode Type Category VT IDCO Episode Vendor Type Category NSVT IDCO Episode Type Induced Flag NO IDCO Episode Detection Interval Ventricular 368 ms IDCO Episode Duration 5 s IDCO Episode Detection And Therapy Details NonSustV IDCO Episode Identifier ATR-429 IDCO Episode Date Time [id number] IDCO Episode Type Category AT/AF IDCO Episode [...] E162 IDCO Implantable Pulse Generator Serial Number [id number] IDCO Implantable Pulse Generator Library Technology Instructor [place] [employer] IDCO Implantable Pulse Generator Implant Date 20140110 IDCO Implantable Lead Model 4136 IDCO Implantable Lead Serial Number [id number] IDCO Implantable Lead Library Technology Instructor Guidant IDCO Implantable Lead Implant Date 20130421 IDCO Implantable Lead Polarity Type Bipolar Lead IDCO Implantable Lead Location Right Atrium IDCO Implantable Lead Model 0292 IDCO Implantable Lead Serial Number [id number] IDCO Implantable Lead Library Technology Instructor [place] [employer] IDCO Implantable Lead Implant Date IDCO [...] IDCO Lead Channel Pacing Threshold Measurement Method Air Support Operations Operator Manual IDCO Lead Channel Pacing Threshold [...] IDCO Lead Channel Pacing Threshold Measurement Method Air Support Operations Operator Manual IDCO Lead Channel Pacing Threshold [...] on filedocumented in this encounter Care Teams Local Tanker Truck Driver Relationship Specialty Start Date End Date Dewayne Carrington MD PCP - General 09/02/16 documented as of this encounter
--- OUTSIDE RECORDS SUMMARY | 2024-04-19 15:26 | XMS_ITS | Encounter Summary ---
[place] [address] Care Team Providers Care Power Line Installer Name Role Phone Dewayne Carrington MD Primary Care Provider [phone] Encounter Details Date Type Department Care Team ([facility] Contact Info) Description 01/31/2019 External Results Cardiology at [address] [phone] Dewayne Carrington MD [address] [place] [id number] Social History Tobacco Use Types Packs/Day Years [...] Department Care Team (Late Contact Info) Description 06/15/2024 10:00 AM EST Hospital Encounter Non-[place] [address] Arrived documented as of this encounter Procedures Procedure Name Priority Date/Time Associated Diagnosis Comments EP DEVICE SCAN Routine 01/13/2019 documented in this encounter Results * Scan Doc: EP Device (01/13/2019) Anatomical Region Laterality Modality Other Dewayne Carrington MD MEDIA MGR SCAN EXT O RDR/RSLT documented in this encounter Visit Diagnoses Not on filedocumented in this encounter Care Teams Power Line Installer Relationship Specialty Start Date End Date Dewayne Carrington MD PCP - General 09/02/16 documented as of this encounter
--- OUTSIDE RECORDS SUMMARY | 2024-04-19 15:26 | XMS_ITS | Encounter Summary ---
[place] [address] Care Team Providers Care Patient Relations Representative Name Role Phone Dewayne Carrington MD Primary Care Provider [phone] Encounter Details Date Type Department Care Team (Late st Contact Info) Description 05/05/2019 Orders Only Cardiology at [address] [phone] Social History Tobacco Use Types Packs/Day Years [...] AM EST Hospital Encounter [place] [address] Arrived documented as of this encounter Procedures Procedure Name Priority Date/Time Associated Diagnosis Comments CARDIAC DEVICE CHECK - REMOTE SCHEDULED Routine 05/05/2019 12:41 AM EST documented in this encounter Results * Cardiac device check - Remote Scheduled (05/05/2019 12:41 AM EST) Date Time Interrogation Session [id number] IDCO Type Interrogation Session Remote Scheduled IDCO Clinic Name [facility] IDCO Battery Date Time of Measurements [id number] IDCO Battery Status Beginning of Service IDCO Battery Remaining Longevity 60 mo IDCO Battery Remaining Percentage 70 % IDCO Capacitor Last Charge Date Time IDCO Capacitor Charge Time 10.8 s IDCO Capacitor Charge Type Reformation IDCO Capacitor Last Charge Date Time [id number] IDCO Capacitor Charge Time 3.8 s IDCO [...] E162 IDCO Implantable Pulse Generator Serial Number [id number] IDCO Implantable Pulse Generator Staff Research Associate [employer] IDCO Implantable Pulse Generator Implant Date 20140110 IDCO Implantable Lead Model 4136 IDCO Implantable Lead Serial Number [id number] IDCO Implantable Lead Staff Research Associate Guidant IDCO Implantable Lead Implant Date 20130421 IDCO Implantable Lead Polarity Type Bipolar Lead IDCO Implantable Lead Location Right Atrium IDCO Implantable Lead Model 0292 IDCO Implantable Lead Serial Number [id number] IDCO Implantable Lead Staff Research Associate [employer] IDCO Implantable Lead Implant Date IDCO [...] IDCO Lead Channel Pacing Threshold Measurement Method Laboratory [place] Manual IDCO Lead Channel Pacing Threshold Polarity [...] IDCO Lead Channel Pacing Threshold Measurement Method Laboratory [place] Manual IDCO Lead Channel Pacing Threshold Polarity [...] on filedocumented in this encounter Care Teams Patient Relations Representative Relationship Specialty Start Date End Date Dewayne Carrington MD PCP - General 09/02/16 documented as of this encounter
--- OUTSIDE RECORDS SUMMARY | 2024-04-19 15:26 | XMS_ITS | Encounter Summary ---
Author Organization [facility] [place] [address] Care Team Providers Care Charge Auditor Name Role Phone Dewayne Carrington MD Primary Care Provider [phone] Reason for Visit * Reason Onset Date Comments Other 05/02/2019 symptom update Encounter Details Date Type Department Care Team ([facility] st Contact Info) Description 05/02/2019 Telephone Cardiology at [address] [phone] Vickie Zarco, RN Other (symptom update ) [...] Self as he now sees Dr Zabala [facility]. He has noted increased episodes of afib over this past week or so,ongoing headaches and fatigue . Recent increased emotional stress(family and work). States B/P has been lower than normal and heart rate 56-64. Taking fluids ok,instructed in importance of this. States he was recently assessed by his PCP,no changes were made. Instructed Pato to contact Dr Zabala' office in [place] today to discuss need for assessment,he is agreeable to this and will seek urgent /emergent care should his symptoms worsen/change . This RN will contact Pato tomorrow 05/03 ,making sure he was able to reach Cardiology in [facility]. Pato is agreeable to this ,appreciative our care. Forward to Dr Zabala as update. Update 05/03,call to Pato voice message left requesting a return call re: was he able to secure an office visit with Dr Zabala in [place]. Await return call. Return call from Pato,states he spoke with [facility] yesterday and will be seeing Dr Zabala [...] AM EST Hospital Encounter [place] [address] Arrived documented as of this encounter Visit Diagnoses Not on filedocumented in this encounter Care Teams Charge Auditor Relationship Specialty Start Date End Date Dewayne Carrington MD PCP - General 09/02/16 documented as of this encounter
--- OUTSIDE RECORDS SUMMARY | 2024-04-19 15:26 | XMS_ITS | Encounter Summary ---
Author Organization [facility] [place] [address] Care Team Providers Care Stock And Station Agent Name Role Phone Dewayne Carrington MD Primary Care Provider [phone] Encounter Details Date Type Department Care Team (Late Contact Info) Description 05/05/2019 Telephone Cardiology at [address] [phone] Daniela Lacy RN Social History Tobacco Use [...] to have a cardioversion on 05/13/19 at [facility]. Patient plans on continuing his cardiac care with Dr. Zabala up at [facility]. Daniela Lacy RN Ambulatory Cardiovascular Clinic General Team-[place] documented in this encounter Plan of Treatment Upcoming Encounters Date Type Department Care Team (Late st Contact Info) Description 06/15/2024 10:00 AM EST Hospital Encounter Non-[place]vasive [place] [address] Arrived documented as of this encounter Visit Diagnoses Not on filedocumented in this encounter Care Teams Stock And Station Agent Relationship Specialty Start Date End Date Dewayne Carrington MD PCP - General 09/02/16 documented as of this encounter
--- OUTSIDE RECORDS SUMMARY | 2024-04-19 15:26 | XMS_ITS | Encounter Summary ---
[place] [address] Care Team Providers Care Soft Work Cigar Machine Operator Name Role Phone Dewayne Carrington MD Primary Care Provider [phone] Encounter Details Date Type Department Care Team (Late st Contact Info) Description 06/17/2019 Orders Only Cardiology at [address] [phone] Social History Tobacco Use Types Packs/Day Years [...] AM EST Hospital Encounter Non-[place] [address] Arrived documented as of this encounter Procedures Procedure Name Priority Date/Time Associated Diagnosis Comments CARDIAC DEVICE CHECK - REMOTE DEVICE INITIATED Routine 06/17/2019 12:42 AM EST documented in this encounter Results * Cardiac device check - Remote Device Initiated (06/17/2019 12:42 AM EST) Date Time Interrogation Session [id number] IDCO Type Interrogation Session Remote Device Initiated IDCO Clinic Name [facility] IDCO Battery Date Time of Measurements [id number] IDCO Battery Status Beginning of Service IDCO Battery Remaining Longevity 66 mo IDCO Battery Remaining Percentage 81 % IDCO Capacitor Last Charge Date Time IDCO Capacitor Charge Time 10.8 s IDCO Capacitor Charge Type Reformation IDCO Capacitor Last Charge Date Time [id number] IDCO Capacitor Charge Time 3.8 s IDCO [...] Episode Identifier [id number] IDCO Episode Date Time [id number] IDCO Episode Type Category AT/AF IDCO Episode Vendor Type Category ATR IDCO Episode Detection Interval Atrial 258 ms IDCO Episode Duration 90,751 s IDCO Episode Detection And Therapy Details ATR IDCO Episode Identifier [id number] IDCO Episode Date Time [id number] IDCO Episode Type Category Other IDCO Episode Vendor Type Category XANDER IDCO Episode Detection Interval Ventricular 968 ms IDCO Episode Duration 57 s IDCO Episode Detection And Therapy Details IDCO Episode Identifier [id number] IDCO Episode Date Time [id number] IDCO Episode Type Category Other IDCO Episode Vendor Type Category XANDER IDCO Episode Detection Interval Ventricular 909 ms IDCO Episode Duration 55 s IDCO Episode Detection And Therapy Details [facility] IDCO Episode Identifier [id number] IDCO Episode Date Time [id number] IDCO Episode Type Category Other IDCO Episode Vendor Type Category XANDER IDCO Episode Detection Interval Ventricular 923 ms IDCO Episode Duration 56 s IDCO Episode Detection And Therapy Details [facility] IDCO Episode Identifier [id number] IDCO Episode Date Time [id number] IDCO Episode Type Category Other IDCO Episode Vendor Type Category XANDER IDCO Episode Detection Interval Ventricular 952 ms IDCO Episode Duration 56 s IDCO Episode Detection And Therapy Details [id number] Episode Date Time [id number] IDCO Episode Type Category Other IDCO Episode Vendor Type Category XANDER IDCO Episode Detection Interval Ventricular 938 ms IDCO Episode Duration 58 s IDCO Episode Detection And Therapy Details IDCO Episode Identifier [id number] IDCO Episode Date Time [id number] IDCO Episode Type Category Other IDCO Episode Vendor Type Category XANDER IDCO Episode Detection Interval Ventricular 1,017 ms IDCO Episode Duration 56 s IDCO Episode Detection And Therapy Details IDCO Episode Identifier [id number] IDCO Episode Date Time [id number] IDCO Episode Type Category Other IDCO Episode Vendor Type Category XANDER IDCO Episode Detection Interval Ventricular 938 ms IDCO Episode Duration 55 s IDCO Episode Detection And Therapy Details [facility] IDCO Episode Identifier [facility]-[id number] IDCO Episode Date Time [id number] IDCO Episode Type Category Other IDCO Episode Vendor Type Category XANDER IDCO Episode Detection Interval Ventricular 984 ms IDCO Episode Duration 57 s IDCO Episode Detection And Therapy Details UT IDCO Episode Identifier [id number] IDCO Episode Date Time [id number] IDCO Episode Type Category Other IDCO Episode Vendor Type Category XANDER IDCO Episode Detection Interval Ventricular 952 ms IDCO Episode Duration 57 s IDCO Episode Detection And Therapy Details UT IDCO Episode Identifier [id number] IDCO Episode Date Time [id number] IDCO Episode Type Category Other IDCO Episode Vendor Type Category XANDER IDCO Episode Detection Interval Ventricular 1,071 ms IDCO Episode Duration 57 s IDCO Episode Detection And Therapy Details Q IDCO Episode Identifier IDCO Episode Date Time [id number] IDCO Episode Type Category VT IDCO Episode Vendor Type Category NSVT IDCO Episode Type Induced Flag NO IDCO Episode Detection Interval Ventricular 387 ms IDCO Episode Duration 6 s IDCO Episode Detection And Therapy Details NonSustV IDCO Episode Identifier V IDCO Episode Date Time [id number] IDCO Episode Type Category VT IDCO Episode [...] E162 IDCO Implantable Pulse Generator Serial Number [id number] IDCO Implantable Pulse Generator Application Software Developer [place] [employer] IDCO Implantable Pulse Generator Implant Date 20140110 IDCO Implantable Lead Model 4136 IDCO Implantable Lead Serial Number [id number] IDCO Implantable Lead Application Software Developer Guidant IDCO Implantable Lead Implant Date 20130421 IDCO Implantable Lead Polarity Type Bipolar Lead IDCO Implantable Lead Location Right Atrium IDCO Implantable Lead Model 0292 IDCO Implantable Lead Serial Number [id number] IDCO Implantable Lead Application Software Developer [place] [employer] IDCO Implantable Lead Implant Date IDCO [...] IDCO Lead Channel Pacing Threshold Measurement Method Salon Assistant Manual IDCO Lead Channel Pacing Threshold [...] IDCO Lead Channel Pacing Threshold Measurement Method Salon Assistant Manual IDCO Lead Channel Pacing Threshold [...] on filedocumented in this encounter Care Teams Soft Work Cigar Machine Operator Relationship Specialty Start Date End Date Dewayne Carrington MD PCP - General 09/02/16 documented as of this encounter
--- OUTSIDE RECORDS SUMMARY | 2024-04-19 15:26 | XMS_ITS | Encounter Summary ---
Author Organization [facility] Address [facility] [place] [address] Care Team Providers Care Coverstitch Binder Name Role Phone Dewayne Carrington MD Primary Care Provider [phone] Encounter Details Date Type Department Care Team (Late Contact Info) Description 07/21/2019 Telephone Dermatology at [facility] [address] [place] [address] Sanjay Early Social History Tobacco Use Types [...] AM EST Hospital Encounter [place] [address] Arrived documented as of this encounter Visit Diagnoses Not on filedocumented in this encounter Care Teams Coverstitch Binder Relationship Specialty Start Date End Date Dewayne Carrington MD PCP - General 09/02/16 documented as of this encounter
--- OUTSIDE RECORDS SUMMARY | 2024-04-19 15:26 | XMS_ITS | Encounter Summary ---
[place] [address] Care Team Providers Care Smoking Tobacco Packer Hand Name Role Phone Dewayne Carrington MD Primary Care Provider [phone] Encounter Details Date Type Department Care Team (Late st Contact Info) Description 09/30/2019 Orders Only Cardiology at [address] [address] Social History Tobacco Use Types Packs/Day Years [...] AM EST Hospital Encounter Non[place] [address] Arrived documented as of this encounter Procedures Procedure Name Priority Date/Time Associated Diagnosis Comments CARDIAC DEVICE CHECK - REMOTE DEVICE INITIATED Routine 09/30/2019 12:41 AM EDT documented in this encounter Results * Cardiac device check - Remote Device Initiated (09/30/2019 12:41 AM EDT) Date Time Interrogation Session [id number] IDCO Type Interrogation Session Remote Device Initiated IDCO Clinic Name [facility] IDCO Battery Date Time of Measurements [id number] IDCO Battery Status Beginning of Service IDCO [...] And Therapy Details ATR IDCO Episode Identifier [id number] IDCO Episode Date Time IDCO Episode Type Category Other IDCO Episode Vendor Type Category XANDER IDCO Episode Detection Interval Ventricular 923 ms IDCO Episode Duration 56 s IDCO Episode Detection And Therapy Details IDCO Episode Identifier [id number] IDCO Episode Date Time IDCO Episode Type Category Other IDCO Episode Vendor Type Category XANDER IDCO Episode Detection Interval Ventricular 1,053 ms IDCO Episode Duration 59 s IDCO Episode Detection And Therapy Details IDCO Episode Identifier [id number] IDCO Episode Date Time IDCO Episode Type Category Other IDCO Episode Vendor Type Category XANDER IDCO Episode Detection Interval Ventricular 1,000 ms IDCO Episode Duration 58 s IDCO Episode Detection And Therapy Details IDCO Episode Identifier [id number] IDCO Episode Date Time [id number] IDCO Episode Type Category Other IDCO Episode Vendor Type Category XANDER IDCO Episode Detection Interval Ventricular 1,000 ms IDCO Episode Duration 60 s IDCO Episode Detection And Therapy Details IDCO Episode Identifier [id number] IDCO Episode Date Time IDCO Episode Type Category Other IDCO Episode Vendor Type Category XANDER IDCO Episode Detection Interval Ventricular 1,091 ms IDCO Episode Duration 59 s IDCO Episode Detection And Therapy Details Q IDCO Episode Identifier [id number] IDCO Episode Date Time IDCO Episode Type Category Other IDCO Episode Vendor Type Category XANDER IDCO Episode Detection Interval Ventricular 968 ms IDCO Episode Duration 58 s IDCO Episode Detection And Therapy Details Q IDCO Episode Identifier [id number] IDCO Episode Date Time IDCO Episode Type Category Other IDCO Episode Vendor Type Category XANDER IDCO Episode Detection Interval Ventricular 938 ms IDCO Episode Duration 53 s IDCO Episode Detection And Therapy Details IDCO Episode Identifier [id number] IDCO Episode Date Time IDCO Episode Type Category Other IDCO Episode Vendor Type Category XANDER IDCO Episode Detection Interval Ventricular 923 ms IDCO Episode Duration 53 s IDCO Episode Detection And Therapy Details IDCO Episode Identifier [id number] IDCO Episode Date Time IDCO Episode Type Category Other IDCO Episode Vendor Type Category XANDER IDCO Episode Detection Interval Ventricular 923 ms IDCO Episode Duration 54 s IDCO Episode Detection And Therapy Details IDCO Episode Identifier [id number] IDCO Episode Date Time IDCO Episode Type Category Other IDCO Episode Vendor Type Category XANDER IDCO Episode Detection Interval Ventricular 923 ms IDCO Episode Duration 53 s IDCO Episode Detection And Therapy Details Q IDCO Episode Identifier [id number] IDCO Episode Date [...] E162 IDCO Implantable Pulse Generator Serial Number [id number] IDCO Implantable Pulse Generator Lieutenant Firefighter [place] [employer] IDCO Implantable Pulse Generator Implant Date 20140110 IDCO Implantable Lead Model 4136 IDCO Implantable Lead Serial Number [id number] IDCO Implantable Lead Lieutenant Firefighter Guidant IDCO Implantable Lead Implant Date 20130421 IDCO Implantable Lead Polarity Type Bipolar Lead IDCO Implantable Lead Location Right Atrium IDCO Implantable Lead Model 0292 IDCO Implantable Lead Serial Number [id number] IDCO Implantable Lead Lieutenant Firefighter [place] [employer] IDCO Implantable Lead Implant Date IDCO [...] IDCO Lead Channel Pacing Threshold Measurement Method Wool Spotter Manual IDCO Lead Channel Pacing Threshold Polarity [...] IDCO Lead Channel Pacing Threshold Measurement Method Wool Spotter Manual IDCO Lead Channel Pacing Threshold Polarity [...] on filedocumented in this encounter Care Teams Smoking Tobacco Packer Hand Relationship Specialty Start Date End Date Dewayne Carrington MD PCP - General 09/02/16 documented as of this encounter
--- OUTSIDE RECORDS SUMMARY | 2024-04-19 15:26 | XMS_ITS | Encounter Summary ---
[place] [address] Care Team Providers Care Tea Taster Name Role Phone Dewayne Carrington MD Primary Care Provider [phone] Reason for Visit * Reason Comments Wound Check Encounter Details Date Type Department Care Team (Late st Contact Info) Description 03/04/2019 1:00 PM EST Office [place] [phone] Kelly Zheng RN Pressure injury of right [...] documented in this encounter Progress Notes * Kelyl Zheng RN - 03/04/2019 1:00 PM EST [...] x 1.0 cm area none No wounds. [place], blanchable PHOTO Treatment: Analgesia: none administered prior [...] d/c the patient from our carein the [facility]. We will be happy to see [...] Beef, chicken, fish Beans, Lentils, peanut butter [place]une[place] and regular yogurt Cheese, eggs ?? Boost, Ensure shakes Protein powder in a smoothie of your choice ?? documented in this encounter Plan of Treatment Upcoming Encounters Date Type Department Care Team (Late st Contact Info) Description 06/15/2024 10:00 AM EST Hospital Encounter Non-[place] [address] Arrived documented as of this encounter Visit Diagnoses Diagnosis Pressure injury of right buttock, stage 1 documented in this encounter Care Teams Tea Taster Relationship Specialty Start Date End Date Dewayne Carrington MD PCP - General 09/02/16 documented as of this encounter
--- OUTSIDE RECORDS SUMMARY | 2024-04-19 15:26 | XMS_ITS | Encounter Summary ---
Author [place] [address] Care Team Providers Care Cardiopulmonary Supervisor Name Role Phone Dewayne Carrington MD Primary Care Provider [phone] Encounter Details Date Type Department Care Team (Late st Contact Info) Description 08/04/2019 Orders Only Cardiology at [address] [address] Social History Tobacco Use Types Packs/Day Years [...] AM EST Hospital Encounter Non-[place] [address] Arrived documented as of this encounter Procedures Procedure Name Priority Date/Time Associated Diagnosis Comments CARDIAC DEVICE CHECK - REMOTE SCHEDULED Routine 08/04/2019 12:42 AM EDT documented in this encounter Results * Cardiac device check - Remote Scheduled (08/04/2019 12:42 AM EDT) Date Time Interrogation Session [id number] IDCO Type Interrogation Session Remote Scheduled IDCO Clinic Name [facility] IDCO Battery Date Time of Measurements [id number] IDCO Battery Status Beginning of Service IDCO [...] Therapy Details Presenting EGM IDCO Episode Identifier [id number] IDCO Episode Date Time IDCO Episode Type Category Other IDCO Episode Vendor Type Category XANDER IDCO Episode Detection Interval Ventricular 938 ms IDCO Episode Duration 53 s IDCO Episode Detection And Therapy Details [id number] Episode Date Time [id number] IDCO Episode Type Category Other IDCO Episode Vendor Type Category XANDER IDCO Episode Detection Interval Ventricular 909 ms IDCO Episode Duration 53 s IDCO Episode Detection And Therapy Details IDCO Episode Identifier [id number] IDCO Episode Date Time IDCO Episode Type Category Other IDCO Episode Vendor Type Category XANDER IDCO Episode Detection Interval Ventricular 857 ms IDCO Episode Duration 52 s IDCO Episode Detection And Therapy Details IDCO Episode Identifier [id number] IDCO Episode Date Time IDCO Episode Type Category Other IDCO Episode Vendor Type Category XANDER IDCO Episode Detection Interval Ventricular 909 ms IDCO Episode Duration 53 s IDCO Episode Detection And Therapy Details IDCO Episode Identifier [id number] IDCO Episode Date Time [id number] IDCO Episode Type Category Other IDCO Episode Vendor Type Category XANDER IDCO Episode Detection Interval Ventricular 909 ms IDCO Episode Duration 54 s IDCO Episode Detection And Therapy Details IDCO Episode Identifier [id number] IDCO Episode Date Time [id number] IDCO Episode Type Category Other IDCO Episode Vendor Type Category XANDER IDCO Episode Detection Interval Ventricular 968 ms IDCO Episode Duration 57 s IDCO Episode Detection And Therapy Details IDCO Episode Identifier [id number] IDCO Episode Date Time [id number] IDCO Episode Type Category Other IDCO Episode Vendor Type Category XANDER IDCO Episode Detection Interval Ventricular 952 ms IDCO Episode Duration 57 s IDCO Episode Detection And Therapy Details IDCO Episode Identifier [id number] IDCO Episode Date Time [id number] IDCO Episode Type Category Other IDCO Episode Vendor Type Category XANDER IDCO Episode Detection Interval Ventricular 952 ms IDCO Episode Duration 56 s IDCO Episode Detection And Therapy Details [facility] IDCO Episode Identifier [id number] IDCO Episode Date Time [id number] IDCO Episode Type Category Other IDCO Episode Vendor Type Category XANDER IDCO Episode Detection Interval Ventricular 952 ms IDCO Episode Duration 57 s IDCO Episode Detection And Therapy Details [facility] IDCO Episode Identifier [id number] IDCO Episode Date Time [id number] IDCO Episode Type Category Other IDCO Episode Vendor Type Category XANDER IDCO Episode Detection Interval Ventricular 952 ms IDCO Episode Duration 56 s IDCO Episode Detection And Therapy Details IDCO Episode Identifier [id number] IDCO Episode Date Time [id number] IDCO Episode Type Category AT/AF IDCO Episode Vendor Type Category ATR IDCO Episode Detection Interval Atrial 276 ms IDCO Episode Duration 17,329 s IDCO Episode Detection And Therapy Details ATR IDCO Episode Identifier [id number] IDCO Episode Date Time [id number] IDCO Episode Type Category AT/AF IDCO Episode Vendor Type Category ATR IDCO Episode Detection Interval Atrial 262 ms IDCO Episode Duration 41,381 s IDCO Episode Detection And Therapy Details ATR IDCO Episode Identifier [id number] IDCO Episode Date Time [id number] IDCO Episode Type Category AT/AF IDCO Episode [...] E162 IDCO Implantable Pulse Generator Serial Number [id number] IDCO Implantable Pulse Generator Stained Glass Joiner [place] [employer] IDCO Implantable Pulse Generator Implant Date 20140110 IDCO Implantable Lead Model 4136 IDCO Implantable Lead Serial Number [id number] IDCO Implantable Lead Stained Glass Joiner Guidant IDCO Implantable Lead Implant Date 20130421 IDCO Implantable Lead Polarity Type Bipolar Lead IDCO Implantable Lead Location Right Atrium IDCO Implantable Lead Model 0292 IDCO Implantable Lead Serial Number [id number] IDCO Implantable Lead Stained Glass Joiner [place] [employer] IDCO Implantable Lead Implant Date IDCO [...] IDCO Lead Channel Pacing Threshold Measurement Method Chair Finisher Manual IDCO Lead Channel Pacing Threshold Polarity [...] IDCO Lead Channel Pacing Threshold Measurement Method Chair Finisher Manual IDCO Lead Channel Pacing Threshold Polarity [...] on filedocumented in this encounter Care Teams Cardiopulmonary Supervisor Relationship Specialty Start Date End Date Dewayne Carrington MD PCP - General 09/02/16 documented as of this encounter
--- OUTSIDE RECORDS SUMMARY | 2024-04-19 15:26 | XMS_ITS | Encounter Summary ---
Author Organization [facility] [place] [address] Care Team Providers Care Tierce Filler Name Role Phone Dewayne Carrington MD Primary Care Provider [phone] Encounter Details Date Type Department Care Team ([facility] st Contact Info) Description 07/14/2019 Telephone Cardiology at [address] [address] Nicole Cancino, RN Social History [...] is all set with an EP and mines inspector at [facility]. Look back into the referral - it [...] st Contact Info) Description 06/15/2024 10:00 AM [facility] Hospital Encounter Non-[place] [address] Arrived documented as of this encounter Visit Diagnoses Not on filedocumented in this encounter Care Teams Tierce Filler Relationship Specialty Start Date End Date Dewayne Carrington MD PCP - General 09/02/16 documented as of this encounter
--- OUTSIDE RECORDS SUMMARY | 2024-04-19 15:26 | XMS_ITS | Encounter Summary ---
Author Organization [facility] [place] [address] Care Team Providers Care Spare Hand Carding Name Role Phone Dewayne Carrington MD Primary Care Provider [phone] Encounter Details Date Type Department Care Team ([facility] st Contact Info) Description 06/20/2019 Telephone Cardiology at [address] [phone] Chante Robertson RN Social History Tobacco Use [...] AM EST Hospital Encounter Non-Invasive [place] [address] Arrived documented as of this encounter Visit Diagnoses Not on filedocumented in this encounter Care Teams Spare Hand Carding Relationship Specialty Start Date End Date Dewayne Carrington MD PCP - General 09/02/16 documented as of this encounter
--- OUTSIDE RECORDS SUMMARY | 2024-04-19 15:26 | XMS_ITS | Encounter Summary ---
[place] [address] Care Team Providers Care General Operations Manager Name Role Phone Dewayne Carrington MD Primary Care Provider Encounter Details Date Type Department Care Team (Late Contact Info) Description 05/17/2019 External Results Cardiology at [address] [phone] Dewayne Carrington MD [address] [place] [phone] Social History Tobacco Use Types Packs/Day Years [...] AM EST Hospital Encounter Non-[place] [address] Arrived documented as of this encounter Procedures Procedure Name Priority Date/Time Associated Diagnosis Comments EP DEVICE SCAN Routine 05/05/2019 documented in this encounter Results * Scan Doc: EP Device (05/05/2019) Anatomical Region Laterality Modality Other Dewayne Carrington MD MEDIA MGR SCAN EXT O RDR/RSLT documented in this encounter Visit Diagnoses Not on filedocumented in this encounter Care Teams General Operations Manager Relationship Specialty Start Date End Date Dewayne Carrington MD PCP - General 09/02/16 documented as of this encounter
--- OUTSIDE RECORDS SUMMARY | 2024-04-19 15:26 | XMS_ITS | Encounter Summary ---
[place] [address] Care Team Providers Care Silviculture Teacher Name Role Phone Dewayne Carrington MD Primary Care Provider [phone] Encounter Details Date Type Department Care Team (Late st Contact Info) Description 05/01/2019 Orders Only Cardiology at [address] [phone] Social History Tobacco Use Types Packs/Day Years [...] AM EST Hospital Encounter [place] [address] Arrived documented as of this encounter Procedures Procedure Name Priority Date/Time Associated Diagnosis Comments CARDIAC DEVICE CHECK - REMOTE DEVICE INITIATED Routine 05/01/2019 12:41 AM EST documented in this encounter Results * Cardiac device check - Remote Device Initiated (05/01/2019 12:41 AM EST) Date Time Interrogation Session [id number] IDCO Type Interrogation Session Remote Device Initiated IDCO Clinic Name [facility] IDCO Battery Date Time of Measurements [id number] IDCO Battery Status Beginning of Service IDCO Battery Remaining Longevity 72 mo IDCO Battery Remaining Percentage 82 % IDCO Capacitor Last Charge Date Time IDCO Capacitor Charge Time 10.8 s IDCO Capacitor Charge Type Reformation IDCO Capacitor Last Charge Date Time [id number] IDCO Capacitor Charge Time 3.8 s IDCO [...] And Therapy Details ATR IDCO Episode Identifier [id number] IDCO Episode Date Time IDCO Episode Type Category Other IDCO Episode Vendor Type Category XANDER IDCO Episode Detection Interval Ventricular 909 ms IDCO Episode Duration 54 s IDCO Episode Detection And Therapy Details Q IDCO Episode Identifier [id number] IDCO Episode Date Time IDCO Episode Type Category Other IDCO Episode Vendor Type Category XANDER IDCO Episode Detection Interval Ventricular 909 ms IDCO Episode Duration 53 s IDCO Episode Detection And Therapy Details Q IDCO Episode Identifier [id number] IDCO Episode Date Time IDCO Episode Type Category Other IDCO Episode Vendor Type Category XANDER IDCO Episode Detection Interval Ventricular 909 ms IDCO Episode Duration 55 s IDCO Episode Detection And Therapy Details IDCO Episode Identifier [id number] IDCO Episode Date Time IDCO Episode Type Category Other IDCO Episode Vendor Type Category XANDER IDCO Episode Detection Interval Ventricular 909 ms IDCO Episode Duration 53 s IDCO Episode Detection And Therapy Details IDCO Episode Identifier [id number] IDCO Episode Date Time IDCO Episode Type Category Other IDCO Episode Vendor Type Category XANDER IDCO Episode Detection Interval Ventricular 923 ms IDCO Episode Duration 53 s IDCO Episode Detection And Therapy Details IDCO Episode Identifier [id number] IDCO Episode Date Time IDCO Episode Type Category Other IDCO Episode Vendor Type Category XANDER IDCO Episode Detection Interval Ventricular 984 ms IDCO Episode Duration 57 s IDCO Episode Detection And Therapy Details IDCO Episode Identifier [id number] IDCO Episode Date Time IDCO Episode Type Category Other IDCO Episode Vendor Type Category XANDER IDCO Episode Detection Interval Ventricular 1,034 ms IDCO Episode Duration 61 s IDCO Episode Detection And Therapy Details IDCO Episode Identifier [id number] IDCO Episode Date Time IDCO Episode Type Category Other IDCO Episode Vendor Type Category XANDER IDCO Episode Detection Interval Ventricular 968 ms IDCO Episode Duration 109 s IDCO Episode Detection And Therapy Details IDCO Episode Identifier [id number] IDCO Episode Date Time IDCO Episode Type Category Other IDCO Episode Vendor Type Category XANDER IDCO Episode Detection Interval Ventricular 952 ms IDCO Episode Duration 55 s IDCO Episode Detection And Therapy Details IDCO Episode Identifier [id number] IDCO Episode Date Time [id number] IDCO Episode Type Category Other IDCO Episode Vendor Type Category XANDER IDCO Episode Detection Interval Ventricular 923 ms IDCO Episode Duration 56 s [facility] Episode [facility] Episode Identifier [id number]-272 IDCO Episode Date Time [id number] IDCO Episode Type Category AT/AF IDCO Episode Vendor Type Category ATR IDCO Episode Detection Interval Atrial 247 ms IDCO Episode Duration 39 s IDCO Episode Detection And Therapy Details ATR IDCO Episode Identifier [id number]-271 IDCO Episode Date Time [id number] IDCO Episode Type Category AT/AF IDCO Episode Vendor Type Category ATR IDCO Episode Detection Interval Atrial 870 ms IDCO Episode Duration 3 s IDCO Episode Detection And Therapy Details ATR IDCO Episode Identifier ATR-270 IDCO Episode Date Time [id number] IDCO Episode Type Category AT/AF IDCO Episode Vendor Type Category ATR IDCO Episode Detection Interval Atrial 230 ms IDCO Episode Duration 34,096 s IDCO Episode Detection And Therapy Details ATR IDCO Episode Identifier ATR-269 IDCO Episode Date Time [id number] IDCO Episode Type Category AT/AF IDCO Episode Vendor Type Category ATR IDCO Episode Detection Interval Atrial 232 ms IDCO Episode Duration 16 s IDCO Episode Detection And Therapy Details ATR IDCO Episode Identifier ATR-268 IDCO Episode Date Time [id number] IDCO Episode Type Category AT/AF IDCO Episode Vendor Type Category ATR IDCO Episode Detection Interval Atrial 241 ms IDCO Episode Duration 24,555 s IDCO Episode Detection And Therapy Details ATR IDCO Episode Identifier ATR-267 IDCO Episode Date Time [id number] IDCO Episode Type Category AT/AF IDCO Episode Vendor Type Category ATR IDCO Episode Detection Interval Atrial 496 ms IDCO Episode Duration 4 s IDCO Episode Detection And Therapy Details ATR IDCO Episode Identifier ATR-266 IDCO Episode Date Time [id number] IDCO Episode Type Category AT/AF IDCO Episode Vendor Type Category ATR IDCO Episode Detection Interval Atrial 273 ms IDCO Episode Duration 73 s IDCO Episode Detection And Therapy Details ATR IDCO Episode Identifier ATR-265 IDCO Episode Date Time [id number] IDCO Episode Type Category AT/AF IDCO Episode [...] E162 IDCO Implantable Pulse Generator Serial Number [id number] IDCO Implantable Pulse Generator Shop Clerk [place] [employer] IDCO Implantable Pulse Generator Implant Date 20140110 IDCO Implantable Lead Model 4136 IDCO Implantable Lead Serial Number [id number] IDCO Implantable Lead Shop Clerk Guidant IDCO Implantable Lead Implant Date 20130421 IDCO Implantable Lead Polarity Type Bipolar Lead IDCO Implantable Lead Location Right Atrium IDCO Implantable Lead Model 0292 IDCO Implantable Lead Serial Number [id number] IDCO Implantable Lead Shop Clerk [place] [employer] IDCO Implantable Lead Implant Date 781806 IDCO Implantable Lead Location Right Ventricle IDCO Lead Channel Measurements Date and Time Start 20180408 IDCO Lead Channel Measurements Date and Time End 20190430 IDCO Lead Channel Sensing Intrinsic Amplitude Mean 3.1 mV IDCO Lead Channel Sensing Polarity Bipolar IDCO Lead Channel Pacing Threshold Amplitude 0.7 V IDCO Lead Channel Pacing Threshold Pulse Width 0.5 ms IDCO Lead Channel Pacing Threshold Measurement Method Regional Sales Leader Manual IDCO Lead Channel Pacing Threshold Polarity [...] IDCO Lead Channel Pacing Threshold Measurement Method Regional Sales Leader Manual IDCO Lead Channel Pacing Threshold Polarity [...] on filedocumented in this encounter Care Teams Silviculture Teacher Relationship Specialty Start Date End Date Dewayne Carrington MD PCP - General 09/02/16 documented as of this encounter
--- OUTSIDE RECORDS SUMMARY | 2024-04-19 15:26 | XMS_ITS | Encounter Summary ---
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 documented in this encounter Plan of Treatment Upcoming Encounters Date Type Department Care Team (Late st Contact Info) Description 06/15/2024 10:00 AM EST Hospital Encounter Non-[place] [address] Arrived documented as of this encounter Visit Diagnoses Not on filedocumented in this encounter Care Teams Solution Engineer Relationship Specialty Start Date End Date Dewayne Carrington MD PCP - General 09/02/16 documented as of this encounter
--- OUTSIDE RECORDS SUMMARY | 2024-04-19 15:26 | XMS_ITS | Encounter Summary ---
[place] [address] Care Team Providers Care Systems Checkout Mechanic Name Role Phone Dewayne Carrington MD Primary Care Provider [phone] Encounter Details Date Type Department Care Team (Late st Contact Info) Description 10/26/2019 Orders Only Cardiology at [address] [address] Social History Tobacco Use Types Packs/Day Years [...] AM EST Hospital Encounter [place] [address] Arrived documented as of this encounter Procedures Procedure Name Priority Date/Time Associated Diagnosis Comments CARDIAC DEVICE CHECK - REMOTE DEVICE INITIATED Routine 10/26/2019 12:42 AM EDT documented in this encounter Results * Cardiac device check - Remote Device Initiated (10/26/2019 12:42 AM EDT) Date Time Interrogation Session [id number] IDCO Type Interrogation Session Remote Device Initiated [facility] IDCO Battery Date Time of Measurements [id number] IDCO Battery Status Beginning of Service IDCO Battery Remaining Longevity 66 mo IDCO Battery Remaining Percentage 77 % IDCO Capacitor Last Charge Date Time IDCO Capacitor Charge Time 11.0 s IDCO Capacitor Charge Type Reformation IDCO Capacitor Last Charge Date Time [id number] IDCO Capacitor Charge Time 3.8 s IDCO [...] IDCO Episode Identifier IDCO Episode Date Time [id number] IDCO Episode Type Category VT IDCO Episode Vendor Type Category VT-1 IDCO Episode Type Induced Flag NO IDCO Episode Detection Interval Ventricular 357 ms IDCO Episode Duration 59 s IDCO Episode Detection And Therapy Details VT-1 No Therapy IDCO Episode Identifier IDCO Episode Date Time [id number] IDCO Episode Type Category VT IDCO Episode Vendor Type Category VT-1 IDCO Episode Type Induced Flag NO IDCO Episode Detection Interval Ventricular 357 ms IDCO Episode Duration 111 s IDCO Episode Detection And Therapy Details VT-1 No Therapy IDCO Episode Identifier IDCO Episode Date Time [id number] IDCO Episode Type Category VT IDCO Episode Vendor Type Category VT-1 IDCO Episode Type Induced Flag NO IDCO Episode Detection Interval Ventricular 370 ms IDCO Episode Duration 104 s IDCO Episode Detection And Therapy Details VT-1 No Therapy IDCO Episode Identifier IDCO Episode Date Time [id number] IDCO Episode Type Category VT IDCO Episode Vendor Type Category VT-1 IDCO Episode Type Induced Flag NO IDCO Episode Detection Interval Ventricular 380 ms IDCO Episode Duration 185 s IDCO Episode Detection And Therapy Details VT-1 No Therapy IDCO Episode Identifier IDCO Episode Date Time [id number] IDCO Episode Type Category VT IDCO Episode Vendor Type Category VT-1 IDCO Episode Type Induced Flag NO IDCO Episode Detection Interval Ventricular 375 ms IDCO Episode Duration 137 s IDCO Episode Detection And Therapy Details VT-1 No Therapy IDCO Episode Identifier IDCO Episode Date Time [id number] IDCO Episode Type Category VT IDCO Episode Vendor Type Category VT-1 IDCO Episode Type Induced Flag NO IDCO Episode Detection Interval Ventricular 353 ms IDCO Episode Duration 39 s IDCO Episode Detection And Therapy Details VT-1 ATPx1 IDCO Episode Identifier IDCO Episode Date Time [id number] IDCO Episode Type Category VT IDCO Episode Vendor Type Category VT-1 IDCO Episode Type Induced Flag NO IDCO Episode Detection Interval Ventricular 364 ms IDCO Episode Duration 82 s IDCO Episode Detection And Therapy Details VT-1 No Therapy IDCO Episode Identifier [id number] IDCO Episode Date Time [id number] IDCO Episode Type Category Other IDCO Episode [...] Detection And Therapy Details IDCO Episode Identifier [id number] IDCO Episode Date Time IDCO Episode Type [...] E162 IDCO Implantable Pulse Generator Serial Number [id number] IDCO Implantable Pulse Generator [employer] IDCO Implantable Pulse Generator Implant Date 20140110 IDCO Implantable Lead Model 4136 IDCO Implantable Lead Serial Number [id number] IDCO Implantable Lead [employer] Guiddelio IDCO Implantable Lead Implant Date 20130421 IDCO Implantable Lead Polarity Type Bipolar Lead IDCO Implantable Lead Location Right Atrium IDCO Implantable Lead Model 0292 IDCO Implantable Lead Serial Number [id number] IDCO Implantable Lead [employer] IDCO Implantable Lead Implant Date IDCO Implantable [...] IDCO Lead Channel Pacing Threshold Measurement Method Systems Integration Advisor Manual IDCO Lead Channel Pacing Threshold Polarity [...] IDCO Lead Channel Pacing Threshold Measurement Method Systems Integration Advisor Manual IDCO Lead Channel Pacing Threshold Polarity [...] on filedocumented in this encounter Care Teams Systems Checkout Mechanic Relationship Specialty Start Date End Date Dewayne Carrington MD PCP - General 09/02/16 documented as of this encounter
--- OUTSIDE RECORDS SUMMARY | 2024-04-19 15:26 | XMS_ITS | Encounter Summary ---
Author Organization [facility] [place] [address] Care Team Providers Care Golf Technician Name Role Phone Dewayne Carrington MD Primary Care Provider [phone] Encounter Details Date Type Department Care Team (Late st Contact Info) Description 06/21/2019 Telephone Cardiology at [address] [address] Chante Robertson RN Social History [...] AM EST Hospital Encounter Non-[place] [address] Arrived documented as of this encounter Visit Diagnoses Not on filedocumented in this encounter Care Teams Golf Technician Relationship Specialty Start Date End Date Dewayne Carrington MD PCP - General 09/02/16 documented as of this encounter
--- OUTSIDE RECORDS SUMMARY | 2024-04-19 15:26 | XMS_ITS | Encounter Summary ---
Author Organization [facility] [place] [address] Care Team Providers Care Neonatal Doctor Name Role Phone Dewayne Carrington MD Primary Care Provider Encounter Details Date Type Department Care Team (Late st Contact Info) Description 09/30/2019 Notes [place] [address] Edy Burns PA [facility] [place] [address] Social History Tobacco Use Types Packs/Day Years [...] Transmission Date: 09/30/2019 Device Type: ICD Generator fee clerk: [employer] Battery Status: Beginning of Service Atrial lead [...] st Contact Info) Description 06/15/2024 10:00 AM [facility] Hospital Encounter Non-[place]vasive [place] [address] Arrived documented as of this encounter Visit Diagnoses Not on filedocumented in this encounter Care Teams Neonatal Doctor Relationship Specialty Start Date End Date Dewayne Carrington MD PCP - General 09/02/16 documented as of this encounter
--- OUTSIDE RECORDS SUMMARY | 2024-04-19 15:26 | XMS_ITS | Encounter Summary ---
Author Organization [facility] [place] [address] Care Team Providers Care Mail Truck Driver Name Role Phone Dewayne Carrington MD Primary Care Provider [phone] Encounter Details Date Type Department Care Team (Late st Contact Info) Description 02/07/2019 Telephone Cardiology at [address] [phone] [place] LNA Social History Tobacco Use [...] LNA - 02/07/2019 11:50 AM EDT [facility] Visit Date - 09/03/2018 Medications reviewed since appointment at [facility]. I did not change medication. documented in this encounter Plan of Treatment Upcoming Encounters Date Type Department Care Team (Late st Contact Info) Description 06/15/2024 10:00 AM EST Hospital Encounter Non-Invasive [place] [address] Arrived documented as of this encounter Visit Diagnoses Not on filedocumented in this encounter Care Teams Mail Truck Driver Relationship Specialty Start Date End Date Dewayne Carrington MD PCP - General 09/02/16 documented as of this encounter
--- OUTSIDE RECORDS SUMMARY | 2024-04-19 15:26 | XMS_ITS | Encounter Summary ---
[place] [address] Care Team Providers Care Human Services Worker Name Role Phone Dewayne Carrington MD Primary Care Provider [phone] Encounter Details Date Type Department Care Team (Late st Contact Info) Description 06/20/2019 Orders Only Cardiology at [address] [phone] Social History Tobacco Use Types Packs/Day Years [...] AM EST Hospital Encounter Non-Invasive [place] [address] Arrived documented as of this encounter Procedures Procedure Name Priority Date/Time Associated Diagnosis Comments CARDIAC DEVICE CHECK - REMOTE PATIENT INITIATED Routine 06/20/2019 5:33 PM EST documented in this encounter Results * Cardiac device check - Remote Patient Initiated (06/20/2019 5:33 PM EST) Date Time Interrogation Session [id number] IDCO Type Interrogation Session Remote Patient Initiated IDCO Clinic Name [facility] IDCO Battery Date Time of Measurements [id number] IDCO Battery Status Beginning of Service IDCO [...] Therapy Details Presenting EGM IDCO Episode Identifier [id number] IDCO Episode Date Time IDCO Episode Type Category Other IDCO Episode Vendor Type Category XANDER IDCO Episode Detection Interval Ventricular 923 ms IDCO Episode Duration 54 s IDCO Episode Detection And Therapy Details IDCO Episode Identifier [id number] IDCO Episode Date Time IDCO Episode Type Category Other IDCO Episode Vendor Type Category XANDER IDCO Episode Detection Interval Ventricular 952 ms IDCO Episode Duration 57 s IDCO Episode Detection And Therapy Details IDCO Episode Identifier [id number] IDCO Episode Date Time IDCO Episode Type Category Other IDCO Episode Vendor Type Category XANDER IDCO Episode Detection Interval Ventricular 968 ms IDCO Episode Duration 56 s IDCO Episode Detection And Therapy Details IDCO Episode Identifier [id number] IDCO Episode Date Time IDCO Episode Type Category Other IDCO Episode Vendor Type Category XANDER IDCO Episode Detection Interval Ventricular 952 ms IDCO Episode Duration 56 s IDCO Episode Detection And Therapy Details IDCO Episode Identifier [id number] IDCO Episode Date Time IDCO Episode Type Category Other IDCO Episode Vendor Type Category XANDER IDCO Episode Detection Interval Ventricular 1,091 ms IDCO Episode Duration 58 s IDCO Episode Detection And Therapy Details IDCO Episode Identifier [id number] IDCO Episode Date Time IDCO Episode Type Category Other IDCO Episode Vendor Type Category XANDER IDCO Episode Detection Interval Ventricular 952 ms IDCO Episode Duration 55 s IDCO Episode Detection And Therapy Details IDCO Episode Identifier [id number] IDCO Episode Date Time IDCO Episode Type Category Other IDCO Episode Vendor Type Category XANDER IDCO Episode Detection Interval Ventricular 923 ms IDCO Episode Duration 55 s IDCO Episode Detection And Therapy Details IDCO Episode Identifier [id number] IDCO Episode Date Time IDCO Episode Type Category Other IDCO Episode Vendor Type Category XANDER IDCO Episode Detection Interval Ventricular 896 ms IDCO Episode Duration 54 s IDCO Episode Detection And Therapy Details IDCO Episode Identifier [id number] IDCO Episode Date Time IDCO Episode Type Category Other IDCO Episode Vendor Type Category XANDER IDCO Episode Detection Interval Ventricular 952 ms IDCO Episode Duration 41 s IDCO Episode Detection And Therapy Details IDCO Episode Identifier [id number] IDCO Episode Date Time IDCO Episode Type [...] E162 IDCO Implantable Pulse Generator Serial Number [id number] IDCO Implantable Pulse Generator Plant Controller [employer] IDCO Implantable Pulse Generator Implant Date 20140110 IDCO Implantable Lead Model 4136 IDCO Implantable Lead Serial Number [id number] IDCO Implantable Lead Plant Controller Guidant IDCO Implantable Lead Implant Date 20130421 IDCO Implantable Lead Polarity Type Bipolar Lead IDCO Implantable Lead Location Right Atrium IDCO Implantable Lead Model 0292 IDCO Implantable Lead Serial Number [id number] IDCO Implantable Lead Plant Controller [employer] IDCO Implantable Lead Implant Date IDCO [...] IDCO Lead Channel Pacing Threshold Measurement Method Canvass Manager Manual IDCO Lead Channel Pacing Threshold [...] IDCO Lead Channel Pacing Threshold Measurement Method Canvass Manager Manual IDCO Lead Channel Pacing Threshold [...] on filedocumented in this encounter Care Teams Human Services Worker Relationship Specialty Start Date End Date Dewayne Carrington MD PCP - General 09/02/16 documented as of this encounter
--- OUTSIDE RECORDS SUMMARY | 2024-04-19 15:26 | XMS_ITS | Encounter Summary ---
[place] [address] Care Team Providers Care Cemetery Vault Installer Name Role Phone Dewayne Carrington MD Primary Care Provider [phone] Encounter Details Date Type Department Care Team ([facility] Contact Info) Description 01/26/2019 External Results Cardiology at [address] [phone] Dewayne Carrington MD [address] [place] [address] Social History Tobacco Use Types Packs/Day Years [...] AM EST Hospital Encounter Non-[place] [address] Arrived documented as of this encounter Procedures Procedure Name Priority Date/Time Associated Diagnosis Comments EP DEVICE SCAN Routine 01/20/2019 documented in this encounter Results * Scan Doc: EP Device (01/20/2019) Anatomical Region Laterality Modality Other Dewayne Carrington MD MEDIA MGR SCAN EXT O RDR/RSLT documented in this encounter Visit Diagnoses Not on filedocumented in this encounter Care Teams Cemetery Vault Installer Relationship Specialty Start Date End Date Dewayne Carrington MD PCP - General 09/02/16 documented as of this encounter
--- OUTSIDE RECORDS SUMMARY | 2024-04-19 15:27 | XMS_ITS | Encounter Summary ---
Author Organization [facility] [place] [address] Care Team Providers Care Wharf Tender Helper Name Role Phone Dewayne Carrington MD Primary Care Provider [phone] Encounter Details Date Type Department Care Team (Late st Contact Info) Description 11/08/2018 11:08 AM EDT - 11/08/2018 11:59 PM EDT Hospital Encounter XRay at [address] [place] [address] Yamile Pimentel, [facility] [place] [address] Pain in left wrist Discharge Disposition: Home [...] AM EST Hospital Encounter Non-[place]vasive [place] [address] Arrived documented as of this encounter Procedures [...] the number below. ? Electronically signed by: Derrell Lynn [facility] ([phone]), at 11/08/2018 1:47 PM Narrative 11/08/2018 1:47 [...] contact the number below. Electronically signed by: Derrell Lynn [facility]([phone]), at 11/08/2018 1:47 PM Yamile Gena Corderoew DO IMG DX ORDERABLES * XR Hand Min 3 views Left (Generic) (11/08/2018 11:21 AM EDT) Anatomical Region Laterality Modality Hand Left Digital Radiogra phy Impressions 11/08/2018 1:41 PM EDT Triscaphe joint osteoarthritis. Thank you for letting us participate in the care of this patient. For questions regarding this report, please contact the number below. ? Electronically signed by: Derrell Lynn [facility] ([phone]), at 11/08/2018 1:41 PM Narrative 11/08/2018 1:41 PM EDT EXAMINATION: XR [...] this report, please contact the number below. Yamlie Pimentel DO IMG DX ORDERABLES documented in this encounter Visit Diagnoses Diagnosis Pain in left wrist Pain in joint, forearm documented in this encounter Care Teams Wharf Tender Helper Relationship Specialty Start Date End Date Dewayne Carrington MD PCP - General 09/02/16 documented as of this encounter
--- OUTSIDE RECORDS SUMMARY | 2024-04-19 15:27 | XMS_ITS | Encounter Summary ---
Author Organization [facility] Address [facility] [place] [address] Care Team Providers Care Traffic Court Referee Name Role Phone Dewayne Carrington MD Primary Care Provider Encounter Details Date Type Department Care Team (Latest Contact Info) Description 12/31/2017 12:05 AM EDT - 12/31/2017 11:59 PM EDT Hospital Encounter Radiology Library at [facility] [place] [address] Honorio Vasquez MD [facility] [place] [address] Discharge Disposition: Home Social History Tobacco Use [...] AM EST Hospital Encounter Non-[place] [address] Arrived documented as of this encounter Procedures Procedure Name Priority Date/Time Associated Diagnosis Comments FILM LIBRARY STORAGE ONLY CT UPPER EXTREMITY Routine 12/31/2017 12:05 AM EDT documented in this encounter Results * Film Library- Storage Only CT Upper Extremity (12/31/2017 12:05 AM EDT) Narrative [facility] RAD - 01/07/2018 5:58 PM EDT This exam is for storage only and is auto-finalizing. Honorio Vasquez MD IMG FILM LIBRARY ORD ERABLES [place], [place] documented in this encounter Visit Diagnoses Not on filedocumented in this encounter Care Teams Traffic Court Referee Relationship Specialty Start Date End Date Dewayne Carrington MD PCP - General 09/02/16 documented as of this encounter
--- OUTSIDE RECORDS SUMMARY | 2024-04-19 15:27 | XMS_ITS | Encounter Summary ---
Author Organization [facility] Address [facility] [place] [address] Care Team Providers Care Scuba Diving Teacher Name Role Phone Dewayne Carrington MD Primary Care Provider [phone] Reason for Visit * Reason Comments Right Wrist Pain NXR, RIGHT WRIST GIANLUCA N - ?[facility] INJURY, [facility] * Consultation (Routine) - Closed Specialty Diagnoses / Procedures Referred By Rosa t Referred To Contact Orthopaedics Diagnoses pain in right wrist Homero Villegas MD [address] [place] [address] Scarlett Vasquez MD [facility] [place] [address] Referral ID Status Reason Start Date Expiration Date Visits Re quested Visits Authorized [id number] Closed 01/08/2018 01/08/2019 1 1 Encounter Details Date Type Department Care Team (Late st Contact Info) Description 02/17/2018 2:45 PM EDT Office [place] [address] Scarlett Vasquez MD [facility] [place] [address] Pain in right wrist Social History Tobacco [...] illness: Marquez Hendrix is a 67 y.o. mwthw-antg-yrbhzzdh male with history of Afib on Xarelto, [...] BIOPSY (WRVU 2.49) N/A 12/17/2011 Performed by Juwan Vyas MD at [facility] ENDOSCOPY ??? PRO UPPER GI ENDOSCOPY, BIOPSY 12/17/2011 EGD WITH BIOPSY performed by JUWAN VYAS at [facility] ENDOSCOPY Medications: ??? aspirin 81 mg [...] other significant pathology noted. Assessment/Plan: 67 y.o. wdval-bsnh-rqynulvv male referred by Dr. Villegas for evaluation [...] He had his pacemaker implanted here at [facility], however, making his records readily available. In [...] st Contact Info) Description 06/15/2024 10:00 AM [facility] Hospital Encounter Non-Invasive [place] [address] Arrived documented as of this encounter Visit [...] mg documented in this encounter Care Teams Scuba Diving Teacher Relationship Specialty Start Date End Date Dewayne Carrington MD PCP - General 09/02/16 documented as of this encounter
--- OUTSIDE RECORDS SUMMARY | 2024-04-19 15:27 | XMS_ITS | Encounter Summary ---
[place] [address] Care Team Providers Care Funeral Home Attendant Name Role Phone Dewayne Carrington MD Primary Care Provider [phone] Reason for Referral * Consultation (Routine) - Closed Specialty Diagnoses / Procedures Referred By Contac t Referred To Contact Rheumatology Diagnoses Pain in right wrist Honorio Vasquez MD [facility] [address] [place] [address] [facility] Rheumatology [address] [place] [phone] Referral ID Status Reason Start Date Expiration Date V isits Requested Visits Authorized [id number] Closed Consult, Test & Treat 07/19/2018 07/19/2019 1 1 Encounter Details Date Type Department Care Team (Late st Contact Info) Description 07/19/2018 8:00 AM EDT [place] [phone] Honorio Vasquez MD [facility] [address] [place] [address] Social History Tobacco Use Types [...] st Contact Info) Description 06/15/2024 10:00 AM [facility] Hospital Encounter Non[place] [address] Arrived Scheduled Referrals Name Type Priority Associated Diagnoses Order Schedule Referral to Rheumatology Outpatient Referral Routine Pain in right wrist Ordered: 07/19/2018 documented as of this encounter Visit Diagnoses Diagnosis Pain in right wrist Pain in joint, forearm documented in this encounter Care Teams Funeral Home Attendant Relationship Specialty Start Date End Date Dewayne Carrington MD PCP - General 09/02/16 documented as of this encounter
--- OUTSIDE RECORDS SUMMARY | 2024-04-19 15:27 | XMS_ITS | Encounter Summary ---
[place] [address] Care Team Providers Care Lead Clinical Research Coordinator Name Role Phone Dewayne Carrington MD Primary Care Provider [phone] Reason for Visit * Reason Onset Date Comments Questions 01/03/2019 [facility] co ntact Encounter Details Date Type Department Care Team (Late Contact Info) Description 01/03/2019 Telephone [place] [phone] Sita Fu RN Questions ([facility] contact) Social History Tobacco Use Types [...] 11:08 AM EDT Spoke with radiology in [facility], they state they will not complete [...] injection planned? Does he needfollow with Rheumatology? [phone] Thanks. documented in this encounter Plan of Treatment Upcoming Encounters Date Type Department Care Team (Late st Contact Info) Description 06/15/2024 10:00 AM EST Hospital Encounter Non-In[place] [address] Arrived documented as of this encounter Visit Diagnoses Not on filedocumented in this encounter Care Teams Lead Clinical Research Coordinator Relationship Specialty Start Date End Date Dewayne Carrington MD PCP - General 09/02/16 documented as of this encounter
--- OUTSIDE RECORDS SUMMARY | 2024-04-19 15:27 | XMS_ITS | Encounter Summary ---
Author Organization [facility] Address [facility] [place] [address] Care Team Providers Care Art Psychotherapist Or Therapist Name Role Phone Dewayne Carrington MD Primary Care Provider [phone] Encounter Details Date Type Department Care Team (Latest Contact Info) Description 12/31/2017 - 12/31/2017 12:04 AM EDT Hospital Encounter Radiology Library at [facility] [place] [address] Honorio Vasquez MD [facility] [place] [address] Discharge Disposition: Home Social History Tobacco Use [...] AM EST Hospital Encounter Non-[place] [address] Arrived documented as of this encounter Procedures Procedure Name Priority Date/Time Associated Diagnosis Comments FILM LIBRARY STORAGE ONLY DX UPPER EXTREMITY Routine 12/31/2017 12:00 AM EDT documented in this encounter Results * Film Library- Storage Only DX Upper Extremity (12/31/2017 12:00 AM EDT) Narrative RAD - 01/07/2018 5:52 PM EDT This exam is for storage only and is auto-finalizing. Honorio Vasquez MD IMG FILM LIBRARY ORD ERABLES [place], [place] documented in this encounter Visit Diagnoses Not on filedocumented in this encounter Care Teams Art Psychotherapist Or Therapist Relationship Specialty Start Date End Date Dewayne Carrington MD PCP - General 09/02/16 documented as of this encounter
--- OUTSIDE RECORDS SUMMARY | 2024-04-19 15:27 | XMS_ITS | Encounter Summary ---
Author Organization [facility] [place] [address] Care Team Providers Care Reading Interventionist Name Role Phone Dewayne Carrington MD Primary Care Provider [phone] Encounter Details Date Type Department Care Team (Late st Contact Info) Description 09/29/2018 9:00 AM EDT Office [place] [phone] Lee Ann Loaiza MD Fatigue, unspecified type; Recent change in weight; [...] AM EDT Rheumatology Follow-up Note HPI: Mr. 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 Using vaping pen for about 4 year. [...] Phalen's test negative. Full fist, claw, good geomorphology teacher. NO MCP compression tenderness. 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
--- OUTSIDE RECORDS SUMMARY | 2024-04-19 15:27 | XMS_ITS | Encounter Summary ---
Author Organization [facility] [place] [address] Care Team Providers Care Nba Player Name Role Phone Dewayne Carrington MD Primary Care Provider [phone] Encounter Details Date Type Department Care Team (Late st Contact Info) Description 11/08/2018 10:30 AM EDT Procedure [place] [address] Yamile Pimentel, [facility] [place] [address] Pain in left wrist; Degenerative tear of [...] Images are available on the Rheumatology Image Turret Punch Operator Archive. Images of the left Wrist demonstrate [...] Contact Info) Description 06/15/2024 10:00 AM [facility] Hospital Encounter Non-Invasive [place] [address] Arrived documented as of this encounter Results [...] below. ? Electronically signed by: Derrell Lynn [facility] ([phone]), at 11/08/2018 1:47 PM Narrative 11/08/2018 1:47 [...] number below. Electronically signed by: Derrell Lynn [facility]([phone]), at 11/08/2018 1:47 PM Yamile Gena Pimentel DO IMG DX ORDERABLES * XR Hand Min 3 views Left (Generic) (11/08/2018 11:21 AM EDT) Anatomical Region Laterality Modality Hand Left Digital Radiogra phy Impressions 11/08/2018 1:41 PM EDT Triscaphe joint osteoarthritis. Thank you for letting us participate in the care of this patient. For questions regarding this report, please contact the number below. ? Electronically signed by: Derrell Lynn [facility] ([phone]), at 11/08/2018 1:41 PM Narrative 11/08/2018 1:41 [...] number below. 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
--- OUTSIDE RECORDS SUMMARY | 2024-04-19 15:27 | XMS_ITS | Encounter Summary ---
Author Organization [facility] Address [facility] [place] [address] Care Team Providers Care Dredge Mate Name Role Phone Dewayne Carrington MD Primary Care Provider [phone] Encounter Details Date Type Department Care Team (Latest Contact Info) Description 06/14/2017 - 06/14/2017 11:59 PM EST Hospital Encounter Radiology Library at [facility] [place] [address] Honorio Vasquez MD [facility] [place] [address] Discharge Disposition: Home Social History Tobacco Use [...] AM EST Hospital Encounter Non-Invasive [place] [address] Arrived documented as of this [...] Vasquez MD IMG FILM LIBRARY ORD ERABLES [place], [place] documented in this encounter Visit Diagnoses Not on filedocumented in this encounter Care Teams Dredge Mate Relationship Specialty Start Date End Date Dewayne Carrington MD PCP - General 09/02/16 documented as of this encounter
--- OUTSIDE RECORDS SUMMARY | 2024-04-19 15:27 | XMS_ITS | Encounter Summary ---
Author Organization [facility] Address [facility] [place] [address] Care Team Providers Care Pipe Fitter Maintenance Name Role Phone Dewayne Carrington MD Primary Care Provider [phone] Encounter Details Date Type Department Care Team (Latest Contact Info) Description 09/23/2017 - 09/23/2017 11:59 PM EDT Hospital Encounter Radiology Library at [facility] [place] [address] Honorio Vasquez MD [facility] [place] [address] Discharge Disposition: Home Social History Tobacco Use [...] AM EST Hospital Encounter Non-Invasive [place] [address] Arrived documented as of this [...] Vasquez MD IMG FILM LIBRARY ORD ERABLES [place], [place] documented in this encounter Visit Diagnoses Not on filedocumented in this encounter Care Teams Pipe Fitter Maintenance Relationship Specialty Start Date End Date Dewayne Carrington MD PCP - General 09/02/16 documented as of this encounter
--- OUTSIDE RECORDS SUMMARY | 2024-04-19 15:27 | XMS_ITS | Encounter Summary ---
Author Organization [facility] [place] [address] Care Team Providers Care It Manager Name Role Phone Dewayne Carrington MD Primary Care Provider [phone] Encounter Details Date Type Department Care Team (Late st Contact Info) Description 02/18/2018 [place] [address] Lucrecia Bhardwaj, RN Social History Tobacco Use [...] advice/treatment. He agrees with the plan. Patient/Responsible democrat voices an understanding of advice? Yes Patient/Responsible democrat intends to comply with action/disposition: Yes documented in this encounter Plan of Treatment Upcoming Encounters Date Type Department Care Team (Late st Contact Info) Description 06/15/2024 10:00 AM EST Hospital Encounter [place] [address] Arrived documented as of this encounter Visit Diagnoses Not on filedocumented in this encounter Care Teams It Manager Relationship Specialty Start Date End Date Dewayne Carrington MD PCP - General 09/02/16 documented as of this encounter
--- OUTSIDE RECORDS SUMMARY | 2024-04-19 15:27 | XMS_ITS | Encounter Summary ---
[place] [address] Care Team Providers Care Science Manager Name Role Phone Dewayne Carrington MD Primary Care Provider [phone] Encounter Details Date Type Department Care Team (Late st Contact Info) Description 07/07/2017 Orders Only Cardiology at [address] [phone] Social History Tobacco Use Types Packs/Day Years [...] Hospital Encounter Non-[place]vasive [place] [address] Arrived documented as of this encounter Procedures Procedure Name Priority Date/Time Associated Diagnosis Comments CARDIAC DEVICE CHECK - REMOTE SCHEDULED Routine 07/07/2017 12:42 AM EDT documented in this encounter Results * Cardiac device check - Remote Scheduled (07/07/2017 12:42 AM EDT) Date Time Interrogation Session [id number] IDCO Type Interrogation Session Remote Scheduled IDCO Clinic Name [facility] IDCO Battery Date Time of Measurements IDCO Battery Status Beginning of Service IDCO Battery Remaining Longevity 96 mo IDCO Battery Remaining Percentage 100 % IDCO Capacitor Last Charge Date Time IDCO Capacitor Charge Time 10.5 s IDCO Capacitor Charge Type Reformation IDCO Capacitor Last Charge Date Time [id number] IDCO Capacitor Charge Time 3.8 s IDCO [...] IDCO Episode Identifier IDCO Episode Date Time [id number] IDCO Episode Type Category Other IDCO Episode [...] IDCO Episode Identifier IDCO Episode Date Time [id number] IDCO Episode Type Category Other IDCO Episode Vendor Type Category XANDER IDCO Episode Detection Interval Ventricular 822 ms IDCO Episode Duration 51 s IDCO Episode Detection And Therapy Details IDCO Episode Identifier IDCO Episode Date Time [id number] IDCO Episode Type Category Other IDCO Episode [...] Episode Identifier ATR-164 IDCO Episode Date Time IDCO Episode Type Category AT/AF IDCO Episode Vendor Type Category ATR IDCO Episode Detection Interval Atrial 222 ms IDCO Episode Duration 65 s IDCO Episode Detection And Therapy Details ATR IDCO Episode Identifier V-346 IDCO Episode Date Time [id number] IDCO Episode Type Category VT IDCO Episode Vendor Type Category NSVT IDCO Episode Type Induced Flag NO IDCO Episode Detection Interval Ventricular 373 ms IDCO Episode Duration 8 s IDCO Episode Detection And Therapy Details NonSustV IDCO Episode Identifier V-345 IDCO Episode Date Time [id number] IDCO Episode Type Category VT IDCO Episode Vendor Type Category NSVT IDCO Episode Type Induced Flag NO IDCO Episode Detection Interval Ventricular 359 ms IDCO Episode Duration 7 s IDCO Episode Detection And Therapy Details NonSustV IDCO Episode Identifier ATR-163 IDCO Episode Date Time [id number] IDCO Episode Type Category AT/AF IDCO Episode Vendor Type Category ATR IDCO Episode Detection Interval Atrial 252 ms IDCO Episode Duration 73 s IDCO Episode Detection And Therapy Details ATR IDCO Episode Identifier ATR-162 IDCO Episode Date Time [id number] IDCO Episode Type Category AT/AF IDCO Episode Vendor Type Category ATR IDCO Episode Detection Interval Atrial 258 ms IDCO Episode Duration 91 s IDCO Episode Detection And Therapy Details ATR IDCO Episode Identifier V-344 IDCO Episode Date Time [id number] IDCO Episode Type Category VT IDCO Episode Vendor Type Category NSVT IDCO Episode Type Induced Flag NO IDCO Episode Detection Interval Ventricular 368 ms IDCO Episode Duration 6 s IDCO Episode Detection And Therapy Details NonSustV IDCO Episode Identifier ATR-161 IDCO Episode Date Time [id number] IDCO Episode Type Category AT/AF IDCO Episode Vendor Type Category ATR IDCO Episode Detection Interval Atrial 256 ms IDCO Episode Duration 2,512 s IDCO Episode Detection And Therapy Details ATR IDCO Episode Identifier ATR-160 IDCO Episode Date Time [id number] IDCO Episode Type Category AT/AF IDCO Episode Vendor Type Category ATR IDCO Episode Detection Interval Atrial 233 ms IDCO Episode Duration 317 s IDCO Episode Detection And Therapy Details ATR IDCO Episode Identifier V-343 IDCO Episode Date Time [id number] IDCO Episode Type Category VT IDCO Episode Vendor Type Category NSVT IDCO Episode Type Induced Flag NO IDCO Episode Detection Interval Ventricular 357 ms IDCO Episode Duration 8 s IDCO Episode Detection And Therapy Details NonSustV IDCO Episode Identifier V-342 IDCO Episode Date Time [id number] IDCO Episode Type Category VT IDCO Episode Vendor Type Category NSVT IDCO Episode Type Induced Flag NO IDCO Episode Detection Interval Ventricular 364 ms IDCO Episode Duration 9 s IDCO Episode Detection And Therapy Details NonSustV IDCO Episode Identifier V-341 IDCO Episode Date Time [id number] IDCO Episode Type Category VT IDCO Episode Vendor Type Category NSVT IDCO Episode Type Induced Flag NO IDCO Episode Detection Interval Ventricular 373 ms IDCO Episode Duration 8 s IDCO Episode Detection And Therapy Details NonSustV IDCO Episode Identifier V-340 IDCO Episode Date Time [id number] IDCO Episode Type Category VT IDCO Episode Vendor Type Category NSVT IDCO Episode Type Induced Flag NO IDCO Episode Detection Interval Ventricular 359 ms IDCO Episode Duration 7 s IDCO Episode Detection And Therapy Details NonSustV IDCO Episode Identifier V-339 IDCO Episode Date Time [id number] IDCO Episode Type Category VT IDCO Episode Vendor Type Category NSVT IDCO Episode Type Induced Flag NO IDCO Episode Detection Interval Ventricular 368 ms IDCO Episode Duration 8 s IDCO Episode Detection And Therapy Details NonSustV IDCO Episode Identifier V-338 IDCO Episode Date Time [id number] IDCO Episode Type Category VT IDCO Episode [...] Episode Identifier ATR-158 IDCO Episode Date Time [id number] IDCO Episode Type Category AT/AF IDCO Episode [...] E162 IDCO Implantable Pulse Generator Serial Number [id number] IDCO Implantable Pulse Generator [employer] IDCO Implantable Pulse Generator Implant Date 20140110 IDCO Implantable Lead Model 4136 IDCO Implantable Lead Serial Number [id number] IDCO Implantable Lead [employer] Guidant IDCO Implantable Lead Implant Date 20130421 IDCO Implantable Lead Polarity Type Bipolar Lead IDCO Implantable Lead Location Right Atrium IDCO Implantable Lead Model 0292 IDCO Implantable Lead Serial Number [id number] IDCO Implantable Lead [employer] IDCO Implantable Lead Implant Date IDCO [...] IDCO Lead Channel Pacing Threshold Measurement Method Spring Tacker Manual IDCO Lead Channel Pacing Threshold Polarity [...] IDCO Lead Channel Pacing Threshold Measurement Method Spring Tacker Manual IDCO Lead Channel Pacing Threshold Polarity [...] on filedocumented in this encounter Care Teams Science Manager Relationship Specialty Start Date End Date Dewayne Carrnigton MD PCP - General 09/02/16 documented as of this encounter
--- OUTSIDE RECORDS SUMMARY | 2024-04-19 15:27 | XMS_ITS | Encounter Summary ---
Author Organization [facility] Address [facility] [place] [address] Care Team Providers Care Baby Stroller Rental Clerk Name Role Phone Dewayne Carrington MD Primary Care Provider [phone] Encounter Details Date Type Department Care Team (Latest Contact Info) Description 03/03/2017 2:40 PM EST Office Visit Cardiology at [address] [address] Kit Self MD [facility] [place] [address] PAF (paroxysmal atrial fibrillation); ASCVD (arteriosclerotic cardiovascular [...] Self MD - 03/03/2017 2:40 PM EST [facility] [place] [id number] CARDIOLOGY OUTPATIENT FOLLOW-UP NOTE Marquez Hendrix [id number] PCP: Dewayne Carrington MD 03/03/2017 PRIMARY CARE PROVIDER: Dewayne Carrington MD PROBLEM LIST: Patient Active Problem List Diagnosis ??? ASCVD (arteriosclerotic cardiovascular disease) ?? Heart catheterization in [facility] in 2007 with placement of a stent in an unspecified vessel ?? Repeat heart catheterization in 2008 with placement of stents to both the LAD and circumflex ?? Followup heart catheterization in 2008 showing stable results in both vessels ?? Recurrent chest discomfort in a somewhat atypical pattern beginning fall ?? Nuclear stress test at [facility] in [place], [place] May 02, 2013 during which he [...] the LAD 0.85 ?? Nuclear stress test [facility] August 2016 reportedly showing a small area of inferior ischemia (final report pending) ?? Echo 11/06/16 showing inferior HK with EF 49%; no valvular disease ??? Typical atrial flutter ?? Occurred 06/08/13, lasted about 24 hours, and v rate about 80 (documented on ICD interrogation 07/18/14) ?? [id number] score = 3 ?? Patient initially reluctant to be anticoagulated as recommended ??? Atrial pacemaker lead displacement New finding at office follow up 04/10/2014 Plan lead reposition/replacement ??? ICD (implantable cardioverter-defibrillator), dual, in situ New Atrial electrode: [employer] Dext[employer] Model# 4126-53 cm Serial# [id number] ?? Bipolar, steroid-tipped, active-fixation IS-1 lead ?? [...] at 10 V: No Old Ventricular electrode: [employer] [place] Model# 0292 Serial# [id number] ?? Bipolar, steroid-tipped, active-fixation DF-4 lead ?? [...] Atrial electrode: [employer] Dextrus Model# 4136 Serial# [id number] ?? Bipolar, steroid-tipped, active-fixation IS-1 lead ?? Access: Axillary vein ?? Location Removed 04/17/2014 ?? Implanted: 01/10/2014 Pulse generator: [employer] Incepta Model# E162 Serial# [id number] ?? DDDR ICD ?? Location: Subcutaneous The [...] AM EST Hospital Encounter [place] [address] Arrived documented as of this encounter Visit Diagnoses Diagnosis PAF (paroxysmal atrial fibrillation) Atrial fibrillation ASCVD (arteriosclerotic cardiovascular disease) Unspecified cardiovascular disease documented in this encounter Care Teams Baby Stroller Rental Clerk Relationship Specialty Start Date End Date Dewayne Carrington MD PCP - General 09/02/16 documented as of this encounter
--- OUTSIDE RECORDS SUMMARY | 2024-04-19 15:27 | XMS_ITS | Encounter Summary ---
Author Organization [facility] Address [facility] [place] [address] Care Team Providers Care Airveyor Operator Name Role Phone Dewayne Carrington MD Primary Care Provider [phone] Reason for Visit * Reason Comments Follow-up Right wrist pain discuss xrays and US results left wrist painful as well Encounter Details Date Type Department Care Team (Late st Contact Info) Description 12/22/2018 2:30 PM EDT Office [place] [address] Scarlett Vasquez MD [facility] [place] [address] Pain in left wrist; Pain in right [...] to rheumatology for further evaluation there. The lead embedded software engineer did not find a clear explanation for [...] WITH BIOPSY performed by KYRA VYAS at [facility] Allergies: Allergies Allergen Reactions ??? [...] file Gets together: Not on file Attends methodist service: Not on file Active member of [...] the patient's orthopedist closer to home in [place] to see if he can help schedule [...] st Contact Info) Description 06/15/2024 10:00 AM [facility] Hospital Encounter Non-[place] [address] Arrived documented as of this encounter Visit Diagnoses Diagnosis Pain in left wrist Pain in joint, forearm Pain in right wrist Pain in joint, forearm documented in this encounter Care Teams Airveyor Operator Relationship Specialty Start Date End Date Dewayne Carrington MD PCP - General 09/02/16 documented as of this encounter
--- OUTSIDE RECORDS SUMMARY | 2024-04-19 15:27 | XMS_ITS | Encounter Summary ---
[place] [address] Care Team Providers Care Branch Or Department Chief Librarian Name Role Phone Dewayne Carrington MD Primary Care Provider [phone] Encounter Details Date Type Department Care Team (Late st Contact Info) Description 01/13/2019 Orders Only Cardiology at [address] [address] Social History Tobacco Use Types Packs/Day Years [...] AM EST Hospital Encounter [place] [address] Arrived documented as of this encounter Procedures Procedure Name Priority Date/Time Associated Diagnosis Comments CARDIAC DEVICE CHECK - REMOTE PATIENT INITIATED Routine 01/13/2019 4:20 PM EDT documented in this encounter Results * Cardiac device check - Remote Patient Initiated (01/13/2019 4:20 PM EDT) Date Time Interrogation Session [id number] IDCO Type Interrogation Session Remote Patient Initiated IDCO Clinic Name [facility] IDCO Battery Date Time of Measurements [id number] IDCO Battery Status Beginning of Service IDCO Battery Remaining Longevity 78 mo IDCO Battery Remaining Percentage 92 % IDCO Capacitor Last Charge Date Time IDCO Capacitor Charge Time 10.8 s IDCO Capacitor Charge Type Reformation IDCO Capacitor Last Charge Date Time [id number] IDCO Capacitor Charge Time 3.8 s IDCO Capacitor Charge Energy 21 J IDCO Capacitor Charge Type Shock IDCO Episode Identifier [id number] IDCO Episode Date Time [id number] IDCO Episode Type Category Periodic EGM IDCO Episode Vendor Type Category APMRT IDCO Episode Detection And Therapy Details Presenting EGM IDCO Episode Identifier [facility]-[id number] IDCO Episode Date Time [id number] IDCO Episode Type Category Other IDCO Episode Vendor Type Category XANDER IDCO Episode Detection Interval Ventricular 938 ms IDCO Episode Duration 59 s IDCO Episode Detection And Therapy Details IDCO Episode Identifier [facility]-[id number] IDCO Episode Date Time [id number] IDCO Episode Type Category Other IDCO Episode Vendor Type Category XANDER IDCO Episode Detection Interval Ventricular 1,017 ms IDCO Episode Duration 62 s IDCO Episode Detection And Therapy Details IDCO Episode Identifier [id number] IDCO Episode Date Time [id number] IDCO Episode Type Category Other IDCO Episode Vendor Type Category XANDER IDCO Episode Detection Interval Ventricular 1,053 ms IDCO Episode Duration 57 s IDCO Episode Detection And Therapy Details IDCO Episode Identifier [facility]-[id number] IDCO Episode Date Time [id number] IDCO Episode Type Category Other IDCO Episode Vendor Type Category XANDER IDCO Episode Detection Interval Ventricular 968 ms IDCO Episode Duration 57 s IDCO Episode Detection And Therapy Details IDCO Episode Identifier [id number] IDCO Episode Date Time [id number] IDCO Episode Type Category Other IDCO Episode Vendor Type Category XANDER IDCO Episode Detection Interval Ventricular 923 ms IDCO Episode Duration 56 s IDCO Episode Detection And Therapy Details IDCO Episode Identifier [id number] IDCO Episode Date Time [id number] IDCO Episode Type Category Other IDCO Episode Vendor Type Category XANDER IDCO Episode Detection Interval Ventricular 968 ms IDCO Episode Duration 58 s IDCO Episode Detection And Therapy Details RYQ IDCO Episode Identifier [id number] IDCO Episode Date Time IDCO Episode Type Category Other IDCO Episode Vendor Type Category XANDER IDCO Episode Detection Interval Ventricular 1,034 ms IDCO Episode Duration 54 s IDCO Episode Detection And Therapy Details RYQ IDCO Episode Identifier [id number] IDCO Episode Date Time IDCO Episode Type Category Other IDCO Episode Vendor Type Category XANDER IDCO Episode Detection Interval Ventricular 952 ms IDCO Episode Duration 58 s IDCO Episode Detection And Therapy Details Q IDCO Episode Identifier [id number] IDCO Episode Date Time IDCO Episode Type Category Other IDCO Episode Vendor Type Category XANDER IDCO Episode Detection Interval Ventricular 1,000 ms IDCO Episode Duration 57 s IDCO Episode Detection And Therapy Details Q IDCO Episode Identifier [id number] IDCO Episode Date Time IDCO Episode Type [...] Episode Identifier [id number] IDCO Episode Date Time [id number] IDCO Episode Type Category AT/AF IDCO Episode Vendor Type Category ATR IDCO Episode Detection Interval Atrial 287 ms IDCO Episode Duration 34 s IDCO Episode Detection And Therapy Details ATR IDCO Episode Identifier [id number] IDCO Episode Date Time [id number] IDCO Episode Type Category AT/AF IDCO Episode [...] Episode Identifier ATR-250 IDCO Episode Date Time [id number] IDCO Episode Type Category AT/AF IDCO Episode Vendor Type Category ATR IDCO Episode Detection Interval Atrial 271 ms IDCO Episode Duration 8 s IDCO Episode Detection And Therapy Details ATR IDCO Episode Identifier ATR-249 IDCO Episode Date Time [id number] IDCO Episode Type Category AT/AF IDCO Episode [...] IDCO Episode Statistic Recent Date Time Start [id number] IDCO Episode Statistic Recent Date Time End [...] E162 IDCO Implantable Pulse Generator Serial Number [id number] IDCO Implantable Pulse Generator Fire Truck Driver [place] [employer] IDCO Implantable Pulse Generator Implant Date 20140110 IDCO Implantable Lead Model 4136 IDCO Implantable Lead Serial Number [id number] IDCO Implantable Lead Fire Truck Driver Guidant IDCO Implantable Lead Implant Date 20130421 IDCO Implantable Lead Polarity Type Bipolar Lead IDCO Implantable Lead Location Right Atrium IDCO Implantable Lead Model 0292 IDCO Implantable Lead Serial Number [id number] IDCO Implantable Lead Fire Truck Driver [place] [employer] IDCO Implantable Lead Implant Date IDCO [...] IDCO Lead Channel Pacing Threshold Measurement Method Featheredger And Reducer Machine Manual IDCO Lead Channel Pacing Threshold Polarity [...] IDCO Lead Channel Pacing Threshold Measurement Method Featheredger And Reducer Machine Manual IDCO Lead Channel Pacing Threshold Polarity [...] on filedocumented in this encounter Care Teams Branch Or Department Chief Librarian Relationship Specialty Start Date End Date Dewayne Carrington MD PCP - General 09/02/16 documented as of this encounter
--- OUTSIDE RECORDS SUMMARY | 2024-04-19 15:27 | XMS_ITS | Encounter Summary ---
Author Organization [facility] [place] [address] Care Team Providers Care Show Operations Supervisor Name Role Phone Dewayne Carrington MD Primary Care Provider [phone] Reason for Visit * Consultation (Routine) - Closed Specialty Diagnoses / Procedures Referred By Rosa t Referred To Contact Rheumatology Diagnoses Pain in right wrist Honorio Vasquez MD [facility] [address] [place] [address] 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 Using vaping pen for about 4 [...] Phalen's test negative. 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 for evaluation of [...] encounter Miscellaneous Notes * Addendum Note - Zoraida Rizo - 09/01/2018 11:00 AM EDTAddended by: ZORAIDA RIZO on: 09/01/2018 12:17 PM Modules accepted: Orders documented in this encounter Plan of Treatment Upcoming Encounters Date Type Department Care Team (Late st Contact Info) Description 06/15/2024 10:00 AM EST Hospital Encounter [place] [address] Arrived documented as of this encounter Procedures [...] titer Arthralgia, unspecified joint COMPREHENSIVE METABOLIC PANEL Routine 09/01/2018 12:29 PM EDT Raised antibody titer Arthralgia, unspecified joint documented in this encounter Results * Uric acid (09/01/2018 12:29 PM EDT) Uric Acid 4.7 3.5 - 8.5 mg/dL [facility] Blood specimen (specimen) 09/01/2018 12:29 PM EDT 09/01/2018 12:36 PM EDT Narrative Resulting Agency Comment Spec In Lab Lee Ann Loaiza MD CHEMISTRY ORDERABLES [facility] [place] [address] * (ABNORMAL) Comprehensive metabolic panel (non-fasting) (09/01/2018 12:29 PM EDT) Glucose 161 65 - 199 mg/dL [facility] Comment:Diabetes: >=200 mg/d L plus symptoms Blood Urea Nitrogen 14 10 - 20 mg/dL [facility] Creatinine 0.92 0.80 - 1.50 mg/dL [facility] Sodium 140 135 - 145 mmol/L [facility] Potassium 4.4 3.5 - 5.0 mmol/L [facility] Comment: Please note: ??Patients with WBC >100,000 may have falsely elevated Potassium levels. ??For accurate Potassium quantification in these patients send serum separator tube (gold top) for subsequent determinations. ??Contact the Clinical Chemistry Laboratory if there are any questions. Chloride 102 98 - 107 mmol/L [facility] Carbon Dioxide 24 22 - 31 mmol/L [facility] Anion Gap 14 5 - 15 mmol/L [facility] Calcium 9.3 8.5 - 10.5 mg/dL [facility] Protein, Total 7.5 6.1 - 8.0 gm/dL [facility] Albumin 4.6 3.2 - 5.2 gm/dL [facility] Aspartate Aminotransferase 41(H) 0 - 39 unit/L [facility] Alanine Aminotransferase 41 0 - 55 unit/L [facility] Alkaline Phosphatase 70 40 - 120 unit/L [facility] Bilirubin, Total 0.4 0.2 - 1.3 mg/dL [facility] Est Glomerular Filtration Rate 85 >=60 mL/min/1. 73 m?? [facility] Comment: The eGFR was calculated using the CKD-EPI equation. As with all creatinine based estimates of kidney function, eGFR values calculated with the CKD-EPI equation are not accurate in patients with acute kidney failure, extremes of body mass or the acutely ill. [email or web address]/[email or web address] eGFR 98 >=60 mL/min/1. 73 m?? [facility] Comment: The eGFR was calculated using the CKD-EPI equation. As with all creatinine based estimates of kidney function, eGFR values calculated with the CKD-EPI equation are not accurate in patients with acute kidney failure, extremes of body mass or the acutely ill. [email or web address] Blood specimen (specimen) 09/01/2018 12:29 PM EDT 09/01/2018 12:36 PM EDT Narrative Resulting Agency Comment Spec In Lab Lee Ann Loaiza MD CHEMISTRY ORDERABLES Performing Organization Address [facility]/ZIP Co de Phone Number [facility] [place] [address] * Sedimentation rate (09/01/2018 12:29 PM EDT) Sedimentation Rate Automated 6 0 - 15 mm/hr [facility] Blood specimen (specimen) 09/01/2018 12:29 PM EDT 09/01/2018 12:35 PM EDT Narrative Resulting Agency Comment Spec In Lab Lee Ann Loaiza MD HEMATOLOGY ORDERABLE S Performing Organization Address [facility] de Phone Number [facility] [place] [address] * Extractable Nuclear Antigen (MARLEEN) Ab (09/01/2018 12:29 PM EDT) MARLEEN Ab Test ?Result ?Flag ??Unit ??RefValue Ab to Extractable Nuclear Ag Eval,S ??SS-A/Ro Ab, IgG, S ?<0.2 ?U ? <1.0 (Negative) ??SS-B/La Ab, IgG, S ?<0.2 ?U ? <1.0 (Negative) ??Sm Ab, IgG, S ? <0.2 ?U ? <1.0 (Negative) ??WET MIXER Ab, IgG, S ?0.4 ? U ? <1.0 (Negative) ??Scl 70 Ab, IgG, S ? <0.2 ?U ? <1.0 (Negative) ??Jaylin 1 Ab, IgG, S ? <0.2 ?U ? <1.0 (Negative) ?Test Performed by: ?[facility] ?[address] [place] [address] [facility] Blood specimen (specimen) 09/01/2018 12:29 PM EDT 09/01/2018 1:32 PM EDT Narrative Resulting Agency Comment Spec In Lab Lee Ann Loaiza MD LAB SEND OUT ORDERAB LES [facility] [place] [address] * Rheumatoid factor, quant (09/01/2018 12:29 PM EDT) Rheumatoid Factor <10 <=14 IU/mL [facility] Blood specimen (specimen) 09/01/2018 12:29 PM EDT 09/01/2018 12:36 PM EDT Narrative Resulting Agency Comment Spec In Lab Lee Ann Loaiza MD CHEMISTRY ORDERABLES [facility] [place] [address] documented in this encounter Visit Diagnoses Diagnosis Raised antibody titer Other and unspecified nonspecific immunological findings Arthralgia, unspecified joint Cervicalgia Chronic midline low back pain with left-sided sciatica documented in this encounter Care Teams Show Operations Supervisor Relationship Specialty Start Date End Date Dewayne Carrington MD PCP - General 09/02/16 documented as of this encounter
--- OUTSIDE RECORDS SUMMARY | 2024-04-19 15:27 | XMS_ITS | Encounter Summary ---
Author Organization [facility] [place] [address] Care Team Providers Care Gear Hobber Name Role Phone Dewayne Carrington MD Primary Care Provider [phone] Encounter Details Date Type Department Care Team (Late st Contact Info) Description 10/07/2017 Telephone Cardiology at [address] [phone] Ruben Davenport Social History Tobacco Use Types [...] encounter Miscellaneous Notes * Telephone Encounter - Ruben Davenport - 10/07/2017 10:22 AM EDT Spoke with Patient in regards to scheduling follow up in cardiology. He stated he is being [facility]now at [facility] documented in this encounter Plan of Treatment Upcoming Encounters Date Type Department Care Team (Late st Contact Info) Description 06/15/2024 10:00 AM EST Hospital Encounter Non-Invasive [place] [phone] Arrived documented as of this encounter Visit Diagnoses Not on filedocumented in this encounter Care Teams Gear Hobber Relationship Specialty Start Date End Date Dewayne Carrington MD PCP - General 09/02/16 documented as of this encounter
--- OUTSIDE RECORDS SUMMARY | 2024-04-19 15:27 | XMS_ITS | Encounter Summary ---
Author Organization [facility] Address [facility] [place] [address] Care Team Providers Care Pier Hand Helper Name Role Phone Dewayne Carrington MD Primary Care Provider [phone] Reason for Visit * Reason Onset Date Comments Questions 03/04/2018 Encounter Details Date Type Department Care Team (Late st Contact Info) Description 03/04/2018 Telephone [place] [phone] Honorio Vasquez MD [facility] [address] [place] [address] Questions Social History Tobacco Use Types Packs/Day [...] - 03/05/2018 11:29 AM EST The MRI director of patient safety reviewed 's defibrillator information and determined that [...] Best number to contact Mr. Hendrix for [phone] documented in this encounter Plan of Treatment Upcoming Encounters Date Type Department Care Team (Late st Contact Info) Description 06/15/2024 10:00 AM EST Hospital Encounter Non-Invasive [place] [address] Arrived documented as of this encounter Visit Diagnoses Not on filedocumented in this encounter Care Teams Pier Hand Helper Relationship Specialty Start Date End Date Dewayne Carrington MD PCP - General 09/02/16 documented as of this encounter
--- OUTSIDE RECORDS SUMMARY | 2024-04-19 15:27 | XMS_ITS | Encounter Summary ---
Author Organization [facility] Address [facility] [place] [address] Care Team Providers Care Product Safety Lead Name Role Phone Dewayne Carrington MD Primary Care Provider [phone] Reason for Visit * Reason Comments Right Wrist Pain Encounter Details Date Type Department Care Team (Late st Contact Info) Description 07/14/2018 3:30 PM EDT Office [place] [address] Honorio Vasquez MD [facility] [place] [address] Pain in right wrist Social History Tobacco [...] so. I am also checking with his scaler packer to see if his defibrillator is MRI [...] AM EST Hospital Encounter Non-Invasive [place] [address] Arrived documented as of this encounter Procedures [...] PM EDT) DNA Ab (DS) Neg Neg [facility] Blood specimen (specimen) 07/14/2018 4:16 PM EDT 07/15/2018 8:03 AM EDT Narrative Resulting Agency Comment Spec In Lab Honorio Vasquez MD LAB SEND OUT ORDERAB LES [facility] [place] [address] * (ABNORMAL) Differential, Automated (07/14/2018 4:16 PM EDT) Neutrophil % 54.5 % [facility] Neutrophil Absolute 4.06 1.70 - 6.10 x10(3)/[facility] Lymph % 29.8 % [facility] Lymphocytes Abs 2.2 0.9 - 3.2 x10(3)/[facility] Monocyte % 6.2 % [facility] Monocyte Abs 0.5 0.3 - 0.9 x10(3)/[facility] Eos % 8.5 % [facility] Eosinophils Abs 0.6(H) 0.0 - 0.4 x10(3)/[facility] Basophil % 0.7 % [facility] Baso Absolute 0.0 0.0 - 0.1 x10(3)/[facility] Immature Gran % 0.30 % [facility] Comment: Immature granulocytes(IG's)percentage and absolute count will include metamyelocytes, myelocytes, and promyelocytes. Blood smears from CBCs yielding IG's will be scanned manually for concordance. If this scan disagrees with the automated IG or if promyelocytes are noted, a manual differential will be performed. Immature Gran Absolute 0.02 0.00 - 0.04 x10(3)/[facility] Blood specimen (specimen) 07/14/2018 4:16 PM EDT 07/14/2018 4:30 PM EDT Narrative Resulting Agency Comment Spec In Lab Honorio Vasquez MD HEMATOLOGY ORDERABLE S [facility] [place] [address] * (ABNORMAL) Hemogram (07/14/2018 4:16 PM EDT) White Blood Cell 7.4 4.0 - 9.5 x10(3)/[facility] Red Blood Cell 5.02 4.58 - 5.54 x10(6)/mc L [facility] Hemoglobin 12.3(L) 13.7 - 16.5 gm/dL [facility] Hematocrit 40.1(L) 40.5 - 48.5 % [facility] Mean Cell Volume 79.9(L) 82.9 - 93.1 fL [facility] Mean Cell Hemoglobin 24.5(L) 27.5 - 32.1 pg [facility] Mean Cell Hemoglobin Concentration 30.7(L) 32.0 - 35.7 gm/dL [facility] Platelet 240 145 - 357 x10(3)/mc L [facility] RDW Standard Deviation 45.3(H) 36.0 - 45.0 [facility] RDW coefficient of variation 15.7(H) 11.4 - 13.8 % [facility] Mean Platelet Volume 9.4 7.6 - 12.9 [facility] NRBC% auto 0.0 % [facility] NRBC Absolute 0.000 0.000 - 0.000 x10(3)/mc L [facility] Blood specimen (specimen) 07/14/2018 4:16 PM EDT 07/14/2018 4:30 PM EDT Narrative Resulting Agency Comment Spec In Lab Honorio Vasquez MD HEMATOLOGY ORDERABLE S [facility] [place] [address] * (ABNORMAL) SONAL (LEB/CGP) (07/14/2018 4:16 PM EDT) SONAL Pos at 1:80(A) Neg [facility] Comment: Titer seen with Speckled pattern. ??Is suggestive of autoantibodies to Sm, [place] RO[place] MAN, SCL-70, or SS-B. Blood specimen (specimen) 07/14/2018 4:16 PM EDT 07/15/2018 8:03 AM EDT Narrative Resulting Agency Comment Spec In Lab Honorio Vasquez MD LAB SEND OUT ORDERAB LES Performing Organization Address [facility] Co de Phone Number [facility] [place] [address] * Cyclic Citrullinated Peptide (07/14/2018 4:16 PM EDT) Cyclic Citrulline Peptide <0.5 <=4.9 unit/mL [facility] Comment: An updated CCP assay reagent was implemented 07/31/16. Please note the modified reference interval. Blood specimen (specimen) 07/14/2018 4:16 PM EDT 07/14/2018 4:30 PM EDT Narrative Resulting Agency Comment Spec In Lab Honorio Vasquez MD CHEMISTRY ORDERABLES Performing Organization Address [facility] Co de Phone Number [facility] [place] [address] * CRP, acute inflammation (07/14/2018 4:16 PM EDT) C-Reactive Protein 0.4 <=4.9 mg/L [facility] Blood specimen (specimen) 07/14/2018 4:16 PM EDT 07/14/2018 4:30 PM EDT Narrative Resulting Agency Comment Spec In Lab Honorio Vasquez MD CHEMISTRY ORDERABLES Performing Organization Address [facility] Co de Phone Number [facility] [place] [address] documented in this encounter Visit Diagnoses Diagnosis Pain in right wrist Pain in joint, forearm documented in this encounter Care Teams Product Safety Lead Relationship Specialty Start Date End Date Dewayne Carrington MD PCP - General 09/02/16 documented as of this encounter
--- OUTSIDE RECORDS SUMMARY | 2024-04-19 15:27 | XMS_ITS | Encounter Summary ---
[place] [address] Care Team Providers Care Fibreglass Laminator Name Role Phone Dewayne Carrington MD Primary Care Provider [phone] Reason for Visit * Reason Onset Date Comments Medication Problem 03/10/2017 Encounter Details Date Type Department Care Team (Late st Contact Info) Description 03/10/2017 Refill Cardiology at [address] [phone] Rosanna Morrow java development team lead Problem Social History Tobacco Use Types Packs/Day [...] AM EST Hospital Encounter Non-[place] [address] Arrived documented as of this encounter Visit Diagnoses Not on filedocumented in this encounter Care Teams Fibreglass Laminator Relationship Specialty Start Date End Date Dewayne Carrington MD PCP - General 09/02/16 documented as of this encounter
--- OUTSIDE RECORDS SUMMARY | 2024-04-19 15:27 | XMS_ITS | Encounter Summary ---
[place] [address] Care Team Providers Care Raking Machine Operator Name Role Phone Dewayne Carrington MD Primary Care Provider [phone] Encounter Details Date Type Department Care Team (Late st Contact Info) Description 01/20/2019 Orders Only Cardiology at [address] [phone] Social History Tobacco Use Types Packs/Day Years [...] AM EST Hospital Encounter Non-[place] [address] Arrived documented as of this encounter Procedures Procedure Name Priority Date/Time Associated Diagnosis Comments CARDIAC DEVICE CHECK - REMOTE SCHEDULED Routine 01/20/2019 12:43 AM EDT documented in this encounter Results * Cardiac device check - Remote Scheduled (01/20/2019 12:43 AM EDT) Date Time Interrogation Session [id number] IDCO Type Interrogation Session Remote Scheduled IDCO Clinic Name [facility] IDCO Battery Date Time of Measurements [id number] IDCO Battery Status Beginning of Service IDCO Battery Remaining Longevity 78 mo IDCO Battery Remaining Percentage 90 % IDCO Capacitor Last Charge Date Time IDCO Capacitor Charge Time 10.8 s IDCO Capacitor Charge Type Reformation IDCO Capacitor Last Charge Date Time [id number] IDCO Capacitor Charge Time 3.8 s IDCO Capacitor Charge Energy 21 J IDCO Capacitor Charge Type Shock IDCO Episode Identifier [id number] IDCO Episode Date Time IDCO Episode Type Category Periodic EGM IDCO Episode Vendor Type Category APMRT IDCO Episode Detection And Therapy Details Presenting EGM IDCO Episode Identifier [id number] IDCO Episode Date Time IDCO Episode Type Category Other IDCO Episode Vendor Type Category XANDER IDCO Episode Detection Interval Ventricular 952 ms IDCO Episode Duration 55 s IDCO Episode Detection And Therapy Details IDCO Episode Identifier [id number] IDCO Episode Date Time IDCO Episode Type Category Other IDCO Episode Vendor Type Category XANDER IDCO Episode Detection Interval Ventricular 938 ms IDCO Episode Duration 54 s IDCO Episode Detection And Therapy Details IDCO Episode Identifier [id number] IDCO Episode Date Time IDCO Episode Type [...] IDCO Episode Identifier IDCO Episode Date Time [id number] IDCO Episode Type Category VT IDCO Episode Vendor Type Category NSVT IDCO Episode Type Induced Flag NO IDCO Episode Detection Interval Ventricular 373 ms IDCO Episode Duration 8 s IDCO Episode Detection And Therapy Details NonSustV IDCO Episode Identifier [id number] IDCO Episode Date Time [id number] IDCO Episode Type Category Other IDCO Episode Vendor Type Category XANDER IDCO Episode Detection Interval Ventricular 896 ms IDCO Episode Duration 53 s IDCO Episode Detection And Therapy Details Q IDCO Episode Identifier IDCO Episode Date Time [id number] IDCO Episode Type Category VT IDCO Episode Vendor Type Category NSVT IDCO Episode Type Induced Flag NO IDCO Episode Detection Interval Ventricular 397 ms IDCO Episode Duration 6 s IDCO Episode Detection And Therapy Details NonSustV IDCO Episode Identifier IDCO Episode Date Time [id number] IDCO Episode Type Category VT IDCO Episode Vendor Type Category NSVT IDCO Episode Type Induced Flag NO IDCO Episode Detection Interval Ventricular 400 ms IDCO Episode Duration 11 s IDCO Episode Detection And Therapy Details NonSustV IDCO Episode Identifier IDCO Episode Date Time [id number] IDCO Episode Type Category VT IDCO Episode Vendor Type Category NSVT IDCO Episode Type Induced Flag NO IDCO Episode Detection Interval Ventricular 395 ms IDCO Episode Duration 12 s IDCO Episode Detection And Therapy Details NonSustV IDCO Episode Identifier [id number] IDCO Episode Date Time [id number] IDCO Episode Type Category Other IDCO Episode Vendor Type Category XANDER IDCO Episode Detection Interval Ventricular 896 ms IDCO Episode Duration 55 s IDCO Episode Detection And Therapy Details Q IDCO Episode Identifier [id number] IDCO Episode Date Time [id number] IDCO Episode Type Category Other IDCO Episode Vendor Type Category XANDER IDCO Episode Detection Interval Ventricular 938 ms IDCO Episode Duration 54 s IDCO Episode Detection And Therapy Details IDCO Episode Identifier [id number] IDCO Episode Date Time [id number] IDCO Episode Type Category Other IDCO Episode Vendor Type Category XANDER IDCO Episode Detection Interval Ventricular 1,034 ms IDCO Episode Duration 57 s IDCO Episode Detection And Therapy Details IDCO Episode Identifier [id number] IDCO Episode Date Time IDCO Episode Type Category Other IDCO Episode Vendor Type Category XANDER IDCO Episode Detection Interval Ventricular 909 ms IDCO Episode Duration 54 s IDCO Episode Detection And Therapy Details Q IDCO Episode Identifier [id number] IDCO Episode Date Time [id number] IDCO Episode Type Category Other IDCO Episode Vendor Type Category XANDER IDCO Episode Detection Interval Ventricular 1,017 ms IDCO Episode Duration 52 s IDCO Episode Detection And Therapy Details IDCO Episode Identifier [id number] IDCO Episode Date Time [id number] IDCO Episode Type Category Other IDCO Episode [...] E162 IDCO Implantable Pulse Generator Serial Number [id number] IDCO Implantable Pulse Generator Environmental Law Professor Garrett Scientific IDCO Implantable Pulse Generator Implant Date 20140110 IDCO Implantable Lead Model 4136 IDCO Implantable Lead Serial Number [id number] IDCO Implantable Lead Environmental Law Professor Guidant IDCO Implantable Lead Implant Date 20130421 IDCO Implantable Lead Polarity Type Bipolar Lead IDCO Implantable Lead Location Right Atrium IDCO Implantable Lead Model 0292 IDCO Implantable Lead Serial Number [id number] IDCO Implantable Lead Environmental Law Professor Garrett Scientific IDCO Implantable Lead Implant Date IDCO [...] IDCO Lead Channel Pacing Threshold Measurement Method Insurance Investigator Manual IDCO Lead Channel Pacing Threshold Polarity [...] IDCO Lead Channel Pacing Threshold Measurement Method Insurance Investigator Manual IDCO Lead Channel Pacing Threshold Polarity [...] on filedocumented in this encounter Care Teams Raking Machine Operator Relationship Specialty Start Date End Date Dewayne Carrington MD PCP - General 09/02/16 documented as of this encounter
--- OUTSIDE RECORDS SUMMARY | 2024-04-19 15:27 | XMS_ITS | Encounter Summary ---
Author Organization [facility] [place] [address] Care Team Providers Care Patients Transporter Name Role Phone Dewayne Carrington MD Primary Care Provider [phone] Reason for Visit * Reason Comments Wound Care * Consultation (Routine) - Specialty Diagnoses / Procedures Referred By Contac t Referred To Contact Wound Care Diagnoses Pressure ulcer of unspecified buttock, unspecified stage PRESSURE ULCER, BUTTOCK Dewayne Carrington MD [address] [place] [address] [facility] [place] [address] Referral ID Status Reason Start Date Expiration Date V isits Requested Visits Authorized [id number] Consult, Test & Treat Connection Center 09/28/2018 12/29/2018 6 6 Encounter Details Date Type Department Care Team (Late st Contact Info) Description 12/22/2018 4:00 PM EDT [place] [phone] Kisha Reeves APRN Pressure injury of right buttock, stage 1 [...] Beef, chicken, fish Beans, Lentils, peanut butter Maori and regular yogurt Cheese, eggs Boost, Ensure shakes Protein powder in a smoothie of your choice documented in this encounter Progress Notes * Kisha Reeves APRN - 12/22/2018 4:00 PM EDT Images from the original note were not included. [facility] Initial Consultation Note HPI: [...] on phone: None Gets together: None Attends mandaeism service: None Active member of club or [...] his daughter. 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 Diagnostics: ERIKA's: n/a Imaging: none pertinent [...] in NAD Mobility: independent Edema: none Periwound: [place], blanchable Wound bed:pink, blanchable Exudate:none Odor: none Blanchable erythema over the cleft, no open areas Wound Location Measurements Tunneling/undermining Wound bed Tina wound skin Right ischium 1.0 x 1.0 cm area none Blanchable erythema [place], blanchable ?? PHOTOS taken today: buttocks Wound [...] Beef, chicken, fish Beans, Lentils, peanut butter Maori and regular yogurt Cheese, eggs Boost, Ensure shakes Protein powder in a smoothie of your choice Cc: Dewayne Carrington MD [facility] SAMIA DELANEY [facility] [place] [address] PCP: Dewayne Carrington MD documented in this encounter Plan of Treatment Upcoming Encounters Date Type Department Care Team (Late st Contact Info) Description 06/15/2024 10:00 AM [facility] Hospital Encounter [place] [address] Arrived documented as of this encounter Visit Diagnoses Diagnosis Pressure injury of right buttock, stage 1 documented in this encounter Care Teams Patients Transporter Relationship Specialty Start Date End Date Dewayne Carrington MD PCP - General 09/02/16 documented as of this encounter
--- OUTSIDE RECORDS SUMMARY | 2024-04-19 15:27 | XMS_ITS | Encounter Summary ---
[facility] [place] [address] Care Team Providers Care Oxygen Therapist Name Role Phone Dewayne Carrington MD Primary Care Provider [phone] Encounter Details Date Type Department Care Team (Late st Contact Info) Description 10/14/2017 Telephone Cardiology at [address] [address] Chante Robertson RN Social History [...] yellow, I gave him the number to [facility] and [facility] get connected-to further trouble shoot his connectivity issue documented in this encounter Plan of Treatment Upcoming Encounters Date Type Department Care Team (Late st Contact Info) Description 06/15/2024 10:00 AM EST Hospital Encounter Non[place] [address] Arrived documented as of this encounter Visit Diagnoses Not on filedocumented in this encounter Care Teams Oxygen Therapist Relationship Specialty Start Date End Date Dewayne Carrington MD PCP - General 09/02/16 documented as of this encounter
--- OUTSIDE RECORDS SUMMARY | 2024-04-19 15:27 | XMS_ITS | Encounter Summary ---
Author Organization [facility] [place] [address] Care Team Providers Care Urban Forester Name Role Phone Dewayne Carrington MD Primary Care Provider [phone] Reason for Visit * Reason Onset Date Comments Medication Refill 03/03/2017 Encounter Details Date Type Department Care Team (Late Contact Info) Description 03/03/2017 Refill Cardiology at [address] [address] Kit Self MD [facility] [place] [address] Medication Refill Social History Tobacco Use Types [...] AM EST Hospital Encounter Non[place] [phone] Arrived documented as of this encounter Visit Diagnoses Not on filedocumented in this encounter Care Teams Urban Forester Relationship Specialty Start Date End Date Dewayne Carrington MD PCP - General 09/02/16 documented as of this encounter
--- OUTSIDE RECORDS SUMMARY | 2024-04-19 15:27 | XMS_ITS | Encounter Summary ---
Author Organization [facility] Address [facility] [place] [address] Care Team Providers Care Welder Setter Resistance Machine Name Role Phone Dewayne Carrington MD Primary Care Provider [phone] Encounter Details Date Type Department Care Team (Latest Contact Info) Description 07/08/2017 - 07/08/2017 11:59 PM EDT Hospital Encounter Radiology Library at [facility] [place] [phone] Honorio Vasquez MD [facility] [place] [address] Discharge Disposition: Home Social History Tobacco Use [...] AM EST Hospital Encounter Non-Invasive [place] [address] Arrived documented as of this [...] Vasquez MD IMG FILM LIBRARY ORD ERABLES [place], [place] documented in this encounter Visit Diagnoses Not on filedocumented in this encounter Care Teams Welder Setter Resistance Machine Relationship Specialty Start Date End Date Dewayne Carrington MD PCP - General 09/02/16 documented as of this encounter
--- OUTSIDE RECORDS SUMMARY | 2024-04-19 15:28 | XMS_ITS | Encounter Summary ---
Author Organization [facility] Address [facility] [place] [address] Care Team Providers Care Materials And Processes Manager Name Role Phone Dewayne Carrington MD Primary Care Provider [phone] Encounter Details Date Type Department Care Team ([facility] st Contact Info) Description 01/27/2017 3:00 PM EDT Office Visit Cardiology at [address] [address] Kit Self MD [facility] [place] [address] PAF (paroxysmal atrial fibrillation); Glucose intolerance (impaired [...] Self MD - 01/27/2017 3:00 PM [place] [address] CARDIOLOGY OUTPATIENT FOLLOW-UP NOTE Marquez Hendrix [id number] PCP: Dewayne Carrington MD 01/27/2017 PRIMARY CARE PROVIDER: Dewayne Carrington MD PROBLEM LIST: Patient Active Problem List Diagnosis ??? ASCVD (arteriosclerotic cardiovascular disease) ?? Heart catheterization in [facility] in 2007 with placement of a stent in an unspecified vessel ?? Repeat heart catheterization in 2008 with placement of stents to both the LAD and circumflex ?? Followup heart catheterization in 2008 showing stable results in both vessels ?? Recurrent chest discomfort in a somewhat atypical pattern beginning fall ?? Nuclear stress test at [facility] in [place], [place] May 02, 2013 during which he developed left shoulder and arm discomfort during submaximal exercise on the treadmill and after which he was converted to a pharmacologic test; nuclear imaging showed ejection fraction of 45% with a partially reversible inferior defect ?? [place] [facility] [place]: normal left main, mild diffuse disease throughout the LAD with an 80% mid stenosis representing a restenosis lesion, mild diffuse disease in the proximal obtuse marginal branch, and mild diffuse disease throughout the right coronary artery; status post 3.0 X 12 mm JON to 80%mid-LAD lesion (in-stent restenosis) ?? Heart [place] [facility] [place] 06, 2014 showing normal left main, [...] 80 (documented on ICD interrogation 07/18/14) ?? [id number] score = 3 ?? Patient initially reluctant to be anticoagulated as recommended ??? Atrial pacemaker lead displacement New finding at office follow up 04/10/2014 Plan lead reposition/replacement ??? ICD (implantable cardioverter-defibrillator), dual, in situ New Atrial electrode: Guidant Dextrus Model# 4126-53 cm Serial# [id number] ?? Bipolar, steroid-tipped, active-fixation IS-1 lead ?? [...] at 10 V: No Old Ventricular electrode: Bandana SpecifiedBy Vanderwagen Model# 0292 Serial# [id number] ?? Bipolar, steroid-tipped, active-fixation DF-4 lead ?? [...] Atrial electrode: Guidant Dextrus Model# 4136 Serial# [id number] ?? Bipolar, steroid-tipped, active-fixation IS-1 lead ?? Access: Axillary vein ?? Location Removed 04/17/2014 ?? Implanted: 01/10/2014 Pulse generator: Bandana SpecifiedBy Incepta Model# E162 Serial# [id number] ?? DDDR ICD ?? Location: Subcutaneous The [...] apparently seen in the emergency department at [facility] on 2016 with feelings of profound [...] AM EST Hospital Encounter Non-[place] [address] Arrived Scheduled Orders Name Type Priority Associated Diagnoses Orde r Schedule EKG 12 Lead ECG Routine PAF (paroxysmal atrial fibrillation) Ordered: 01/27/2017 documented as of this encounter Procedures Procedure Name Priority Date/Time Associated Diagnosis Comments POCT FINGERSTICK GLUCOSE STAT 01/27/2017 Glucose intolerance (impaired glucose tolerance) documented in this encounter Results * POCT Fingerstick Glucose (01/27/2017) Glucose, POC 184 60 - 199 mg/dl Kit name poct Kit Lot# [id number] 01/27/2017 Kit Self MD POINT OF CARE TEST O RDERABLES documented in this encounter Visit Diagnoses Diagnosis PAF (paroxysmal atrial fibrillation) Atrial fibrillation Glucose intolerance (impaired glucose tolerance) Impaired glucose tolerance test documented in this encounter Care Teams Materials And Processes Manager Relationship Specialty Start Date End Date Raser, Dewayne, MD PCP - General 09/02/16 documented as of this encounter
--- OUTSIDE RECORDS SUMMARY | 2024-04-19 15:28 | XMS_ITS | Encounter Summary ---
[facility] Organization [facility] [place] [address] Care Team Providers Care Screen Printer Helper Name Role Phone Ángel Bingham MD Primary Care Provider [phone] Encounter Details Date Type Department Care Team (Late st Contact Info) Description 10/16/2015 Orders Only Cardiology at [address] [address] Social History Tobacco Use Types Packs/Day Years [...] AM EST Hospital Encounter Non-[place] [address] Arrived documented as of this encounter Procedures Procedure Name Priority Date/Time Associated Diagnosis Comments CARDIAC DEVICE CHECK - REMOTE SCHEDULED Routine 10/16/2015 12:41 AM EDT documented in this encounter Results * Cardiac device check - Remote Scheduled (10/16/2015 12:41 AM EDT) Date Time Interrogation Session [id number] IDCO Type Interrogation Session Remote Scheduled IDCO Clinic Name [facility] IDCO Battery Date Time of Measurements [id number] IDCO Battery Status Beginning of Service IDCO Battery Remaining Longevity 120 mo IDCO Battery Remaining Percentage 100 % IDCO Capacitor Last Charge Date Time IDCO Capacitor Charge Time 10.2 s IDCO Capacitor Charge Type Reformation IDCO Capacitor Last Charge Date Time [id number] IDCO Capacitor Charge Time 3.8 s IDCO Capacitor Charge Energy 21 J IDCO Capacitor Charge Type Shock IDCO Episode Identifier APM-15 IDCO Episode Date Time IDCO Episode Type Category Periodic EGM IDCO Episode Vendor Type Category APMRT IDCO Episode Detection And Therapy Details Presenting EGM IDCO Episode Identifier [id number] IDCO Episode Date Time IDCO Episode Type Category Other IDCO Episode Vendor Type Category XANDER IDCO Episode Detection Interval Ventricular 938 ms IDCO Episode Duration 54 s IDCO Episode Detection And Therapy Details IDCO Episode Identifier [id number] IDCO Episode Date Time [id number] IDCO Episode Type Category Other IDCO Episode Vendor Type Category XANDER IDCO Episode Detection Interval Ventricular 968 ms IDCO Episode Duration 59 s IDCO Episode Detection And Therapy Details IDCO Episode Identifier [id number] IDCO Episode Date Time [id number] IDCO Episode Type Category Other IDCO Episode Vendor Type Category XANDER IDCO Episode Detection Interval Ventricular 1,071 ms IDCO Episode Duration 62 s IDCO Episode Detection And Therapy Details IDCO Episode Identifier [id number] IDCO Episode Date Time [id number] IDCO Episode Type Category Other IDCO Episode Vendor Type Category XANDER IDCO Episode Detection Interval Ventricular 1,053 ms IDCO Episode Duration 63 s IDCO Episode Detection And Therapy Details IDCO Episode Identifier 30 IDCO Episode Date Time [id number] IDCO Episode Type Category Other IDCO Episode Vendor Type Category XANDER IDCO Episode Detection Interval Ventricular 1,071 ms IDCO Episode Duration 62 s IDCO Episode Detection And Therapy Details IDCO Episode Identifier -[id number] IDCO Episode Date Time [id number] IDCO Episode Type Category Other IDCO Episode Vendor Type Category XANDER IDCO Episode Detection Interval Ventricular 1,053 ms IDCO Episode Duration 63 s IDCO Episode Detection And Therapy Details IDCO Episode Identifier [id number] IDCO Episode Date Time [id number] IDCO Episode Type Category Other IDCO Episode Vendor Type Category XANDER IDCO Episode Detection Interval Ventricular 1,053 ms IDCO Episode Duration 63 s IDCO Episode Detection And Therapy Details IDCO Episode Identifier [id number] IDCO Episode Date Time [id number] IDCO Episode Type Category Other IDCO Episode Vendor Type Category XANDER IDCO Episode Detection Interval Ventricular 1,154 ms IDCO Episode Duration 63 s IDCO Episode Detection And Therapy Details IDCO Episode Identifier IDCO Episode Date Time [id number] IDCO Episode Type Category Other IDCO Episode Vendor Type Category XANDER IDCO Episode Detection Interval Ventricular 1,053 ms IDCO Episode Duration 63 s IDCO Episode Detection And Therapy Details IDCO Episode Identifier IDCO Episode Date Time [id number] IDCO Episode Type Category Other IDCO Episode Vendor Type Category XANDER IDCO Episode Detection Interval Ventricular 1,071 ms IDCO Episode Duration 63 s IDCO Episode Detection And Therapy Details IDCO Episode Identifier ATR-46 IDCO Episode Date Time [id number] IDCO Episode Type Category AT/AF IDCO Episode Vendor Type Category ATR IDCO Episode Detection Interval Atrial 311 ms IDCO Episode Duration 25 s IDCO Episode Detection And Therapy Details ATR IDCO Episode Identifier ATR-45 IDCO Episode Date Time [id number] IDCO Episode Type Category AT/AF IDCO Episode Vendor Type Category ATR IDCO Episode Detection Interval Atrial 612 ms IDCO Episode Duration 6 s IDCO Episode Detection And Therapy Details ATR IDCO Episode Identifier ATR-44 IDCO Episode Date Time [id number] IDCO Episode Type Category AT/AF IDCO Episode Vendor Type Category ATR IDCO Episode Detection Interval Atrial 279 ms IDCO Episode Duration 75 s IDCO Episode Detection And Therapy Details ATR IDCO Episode Identifier ATR-43 IDCO Episode Date Time [id number] IDCO Episode Type Category AT/AF IDCO Episode [...] Episode Identifier ATR-42 IDCO Episode Date Time IDCO Episode Type [...] Episode Identifier V-37 IDCO Episode Date Time [id number] IDCO Episode Type Category VT IDCO Episode Vendor Type Category NSVT IDCO Episode Type Induced Flag NO IDCO Episode Detection Interval Ventricular 330 ms IDCO Episode Duration 6 s IDCO Episode Detection And Therapy Details NonSustV IDCO Episode Identifier V-36 IDCO Episode Date Time [id number] IDCO Episode Type Category VT IDCO Episode Vendor Type Category NSVT IDCO Episode Type Induced Flag NO IDCO Episode Detection Interval Ventricular 330 ms IDCO Episode Duration 6 s IDCO Episode Detection And Therapy Details NonSustV IDCO Episode Identifier ATR-41 IDCO Episode Date Time [id number] IDCO Episode Type Category AT/AF IDCO Episode Vendor Type Category ATR IDCO Episode Detection Interval Atrial 262 ms IDCO Episode Duration 40 s IDCO Episode Detection And Therapy Details ATR IDCO Episode Identifier ATR-40 IDCO Episode Date Time [id number] IDCO Episode Type Category AT/AF IDCO Episode Vendor Type Category ATR IDCO Episode Detection Interval Atrial 253 ms IDCO Episode Duration 37 s IDCO Episode Detection And Therapy Details ATR IDCO Episode Identifier ATR-39 IDCO Episode Date Time [id number] IDCO Episode Type Category AT/AF IDCO Episode Vendor Type Category ATR IDCO Episode Detection Interval Atrial 255 ms IDCO Episode Duration 17 s IDCO Episode Detection And Therapy Details ATR IDCO Episode Identifier V-35 IDCO Episode Date Time [id number] IDCO Episode Type Category VT IDCO Episode Vendor Type Category NSVT IDCO Episode Type Induced Flag NO IDCO Episode Detection Interval Ventricular 321 ms IDCO Episode Duration 6 s IDCO Episode Detection And Therapy Details NonSustV IDCO Episode Identifier ATR-38 IDCO Episode Date Time [id number] IDCO Episode Type Category AT/AF IDCO Episode [...] E162 IDCO Implantable Pulse Generator Serial Number [id number] IDCO Implantable Pulse Generator Control Room Operator [place] [employer] IDCO Implantable Pulse Generator Implant Date 20140110 IDCO Implantable Lead Model 4136 IDCO Implantable Lead Serial Number [id number] IDCO Implantable Lead Control Room Operator Guidant IDCO Implantable Lead Implant Date 20130421 IDCO Implantable Lead Polarity Type Bipolar Lead IDCO Implantable Lead Location Right Atrium IDCO Implantable Lead Model 0292 IDCO Implantable Lead Serial Number [id number] IDCO Implantable Lead Control Room Operator [employer] IDCO Implantable Lead Implant Date IDCO [...] IDCO Lead Channel Pacing Threshold Measurement Method Prize Coordinator Manual IDCO Lead Channel Pacing Threshold Polarity [...] IDCO Lead Channel Pacing Threshold Measurement Method Prize Coordinator Manual IDCO Lead Channel Pacing Threshold Polarity [...] on filedocumented in this encounter Care Teams Screen Printer Helper Relationship Specialty Start Date End Date Ángel Bingham MD [facility] [address] [place] [address] PCP - General 01/31/14 09/01/16 documented as of this encounter
--- OUTSIDE RECORDS SUMMARY | 2024-04-19 15:28 | XMS_ITS | Encounter Summary ---
Author Organization [facility] [place] [address] Care Team Providers Care Elevator Runner Name Role Phone Dewayne Carrington MD Primary Care Provider [phone] Encounter Details Date Type Department Care Team (Late st Contact Info) Description 09/11/2016 External Results Cardiology at [address] [phone] Kit Self MD [facility] [address] Social History Tobacco Use Types Packs/Day Years [...] AM EST Hospital Encounter Non-Invasive [place]iology [place] [phone] Arrived documented as of this encounter Procedures Procedure Name Priority Date/Time Associated Diagnosis Comments EP DEVICE SCAN Routine 09/04/2016 documented in this encounter Results * Scan Doc: EP Device (09/04/2016) Anatomical Region Laterality Modality Other Kit Self MD MEDIA MGR SCAN EXT O RDR/RSLT documented in this encounter Visit Diagnoses Not on filedocumented in this encounter Care Teams Elevator Runner Relationship Specialty Start Date End Date Dewayne Carrington MD PCP - General 09/02/16 documented as of this encounter
--- OUTSIDE RECORDS SUMMARY | 2024-04-19 15:28 | XMS_ITS | Encounter Summary ---
Author Organization [facility] [place] [address] Care Team Providers Care Flat Lock Machine Operator Name Role Phone Dewayne Carrington MD Primary Care Provider [phone] Encounter Details Date Type Department Care Team ([facility] st Contact Info) Description 09/02/2016 [place] [phone] Krystle Carrillo MD [facility] [address] Social History Tobacco Use Types Packs/Day Years [...] 10:07pm Referring Provider: Dr. Sepulveda Patient Location: [facility] Past Medical History: Patient Active Problem [...] sustained [place] s/p ICD who presents to [facility] with headache and high BP 150s-160s/90s. Patient was concerned that his ICD would be triggered due to the hypertension, therefore, he presentedto [facility]. Patient complained of intermittent palpitations over [...] Sepulveda is asking whether she should have [employer] interrogate the pacer tonight. Pertinent Diagnostic Findings: [...] character), patient should follow up with his ordnance artificer helper, Dr. Self within a week. I will [...] have personally reviewed EKGs. Krystle Carrillo MD Builder Operator PGY-4 Pager: [phone] documented in this encounter Plan of Treatment Upcoming Encounters Date Type Department Care Team (Late st Contact Info) Description 06/15/2024 10:00 AM EST Hospital Encounter Non-[place] [address] Arrived documented as of this encounter Visit Diagnoses Not on filedocumented in this encounter Care Teams Flat Lock Machine Operator Relationship Specialty Start Date End Date Dewayne Carrington MD PCP - General 09/02/16 documented as of this encounter
--- OUTSIDE RECORDS SUMMARY | 2024-04-19 15:28 | XMS_ITS | Encounter Summary ---
Author Organization [facility] Address [facility] [place] [address] Care Team Providers Care Mission Systems Engineer Name Role Phone Ángel Bingham MD Primary Care Provider [phone] Encounter Details Date Type Department Care Team (Latest Contact Info) Description 07/11/2015 3:30 PM EDT Office Visit Cardiology at [address] [address] Kit Self MD [facility] [place] [address] ASCVD (arteriosclerotic cardiovascular disease); Typical atrial flutter [...] from the original note were not included. Formerly [facility] [place] [address] CARDIOLOGY OUTPATIENT FOLLOW-UP NOTE Marquez Evan Hendrix [id number] PCP: ÁNGEL BINGHAM MD 07/11/2015 PRIMARY CARE PROVIDER: ÁNGEL BINGHAM MD PROBLEM LIST: Patient Active Problem List Diagnosis ??? ASCVD (arteriosclerotic cardiovascular disease) ?? Heart catheterization in [facility] in 2007 with placement of a stent in an unspecified vessel ?? Repeat heart catheterization in 2008 with placement of stents to both the LAD and circumflex ?? Followup heart catheterization in 2008 showing stable results in both vessels ?? Recurrent chest discomfort in a somewhat atypical pattern beginning fall ?? Nuclear stress test at [facility] in [place], [place] May 02, 2013 during which he developed left shoulder and arm discomfort during submaximal exercise on the treadmill and after which he was converted to a pharmacologic test; nuclear imaging showed ejection fraction of 45% with a partially reversible inferior defect ?? Cath [facility] 05/13/2013: normal left main, mild diffuse disease throughout the LAD with an 80% mid stenosis representing a restenosis lesion, mild diffuse disease in the proximal obtuse marginal branch, and mild diffuse disease throughout the right coronary artery; status post 3.0 X 12 mm JON to 80%mid-LAD lesion (in-stent restenosis) ?? Heart catheterization [facility] January 06, 2014 showing normal left main, [...] 80 (documented on ICD interrogation 07/18/14) ?? [id number] score = 3 ?? Patient initially reluctant to be anticoagulated as recommended ??? Atrial pacemaker lead displacement New finding at office follow up 04/10/2014 Plan lead reposition/replacement ??? ICD (implantable cardioverter-defibrillator), dual, in situ New Atrial electrode: Guidant Dextrus Model# 4126-53 cm Serial# [id number] ?? Bipolar, steroid-tipped, active-fixation IS-1 lead ?? [...] at 10 V: No Old Ventricular electrode: [place] [employer] Roggen Model# 0292 Serial# [id number] ?? Bipolar, steroid-tipped, active-fixation DF-4 lead ?? [...] Atrial electrode: Guidant Dextrus Model# 4136 Serial# [id number] ?? Bipolar, steroid-tipped, active-fixation IS-1 lead ?? Access: Axillary vein ?? Location Removed 04/17/2014 ?? Implanted: 01/10/2014 Pulse generator: [employer] Model# E162 Serial# [id number] ?? DDDR ICD ?? Location: Subcutaneous The [...] 2 times daily. 90 tablet 6 ??? [place]-3 Fatty Acids (FISH OIL) 500 mg Cap [...] rarely but which is associated with a [id number] score of at least 3. He continues [...] AM EST Hospital Encounter Non-In[place] [address] Arrived documented as of this encounter Visit Diagnoses Diagnosis ASCVD (arteriosclerotic cardiovascular disease) Unspecified cardiovascular disease Typical atrial flutter Atrial flutter documented in this encounter Care Teams Mission Systems Engineer Relationship Specialty Start Date End Date Ángel Bingham MD [facility] [address] [place] [address] PCP - General 01/31/14 09/01/16 documented as of this encounter
--- OUTSIDE RECORDS SUMMARY | 2024-04-19 15:28 | XMS_ITS | Encounter Summary ---
[place] [address] Care Team Providers Care Labeling Specialist Name Role Phone Dewayne Carrington MD Primary Care Provider Encounter Details Date Type Department Care Team (Late st Contact Info) Description 09/03/2016 Orders Only Cardiology at [address] [address] Social History Tobacco Use Types Packs/Day Years [...] AM EST Hospital Encounter [place] [address] Arrived documented as of this encounter Procedures Procedure Name Priority Date/Time Associated Diagnosis Comments CARDIAC DEVICE CHECK - REMOTE PATIENT INITIATED Routine 09/03/2016 3:22 AM EDT documented in this encounter Results * Cardiac device check - Remote Patient Initiated (09/03/2016 3:22 AM EDT) Date Time Interrogation Session [id number] IDCO Type Interrogation Session Remote Patient Initiated [facility] IDCO Battery Date Time of Measurements [id number] IDCO Battery Status Beginning of Service IDCO Battery Remaining Longevity 108 mo IDCO Battery Remaining Percentage 100 % IDCO Capacitor Last Charge Date Time [id number] IDCO Capacitor Charge Time 10.4 s IDCO Capacitor Charge Type Reformation IDCO Capacitor Last Charge Date Time [id number] IDCO Capacitor Charge Time 3.8 s IDCO Capacitor Charge Energy 21 J IDCO Capacitor Charge Type Shock IDCO Episode Identifier APM-18 IDCO Episode Date Time [id number] IDCO Episode Type Category Periodic EGM IDCO Episode Vendor Type Category APMRT IDCO Episode Detection And Therapy Details Presenting EGM IDCO Episode Identifier [id number] IDCO Episode Date Time [id number] IDCO Episode Type Category Other IDCO Episode Vendor Type Category XANDER IDCO Episode Detection Interval Ventricular 923 ms IDCO Episode Duration 57 s IDCO Episode Detection And Therapy Details IDCO Episode Identifier [id number] IDCO Episode Date Time IDCO Episode Type Category Other IDCO Episode Vendor Type Category XANDER IDCO Episode Detection Interval Ventricular 923 ms IDCO Episode Duration 57 s IDCO Episode Detection And Therapy Details IDCO Episode Identifier -[id number] IDCO Episode Date Time IDCO Episode Type Category Other IDCO Episode Vendor Type Category XANDER IDCO Episode Detection Interval Ventricular 952 ms IDCO Episode Duration 56 s IDCO Episode Detection And Therapy Details IDCO Episode Identifier [id number] IDCO Episode Date Time [id number] IDCO Episode Type Category Other IDCO Episode Vendor Type Category XANDER IDCO Episode Detection Interval Ventricular 870 ms IDCO Episode Duration 54 s IDCO Episode Detection And Therapy Details IDCO Episode Identifier -[id number] IDCO Episode Date Time [id number] IDCO Episode Type Category Other IDCO Episode Vendor Type Category XANDER IDCO Episode Detection Interval Ventricular 690 ms IDCO Episode Duration 40 s IDCO Episode Detection And Therapy Details IDCO Episode Identifier [id number] IDCO Episode Date Time IDCO Episode Type Category Other IDCO Episode Vendor Type Category XANDER IDCO Episode Detection Interval Ventricular 968 ms IDCO Episode Duration 58 s IDCO Episode Detection And Therapy Details Q IDCO Episode Identifier [id number] IDCO Episode Date Time [id number] IDCO Episode Type Category Other IDCO Episode Vendor Type Category XANDER IDCO Episode Detection Interval Ventricular 952 ms IDCO Episode Duration 58 s IDCO Episode Detection And Therapy Details IDCO Episode Identifier [id number] IDCO Episode Date Time [id number] IDCO Episode Type Category Other IDCO Episode Vendor Type Category XANDER IDCO Episode Detection Interval Ventricular 909 ms IDCO Episode Duration 78 s IDCO Episode Detection And Therapy Details IDCO Episode Identifier [id number] IDCO Episode Date Time [id number] IDCO Episode Type Category Other IDCO Episode Vendor Type Category XANDER IDCO Episode Detection Interval Ventricular 984 ms IDCO Episode Duration 54 s IDCO Episode Detection And Therapy Details IDCO Episode Identifier -[id number] IDCO Episode Date Time [id number] IDCO Episode Type Category Other IDCO Episode Vendor Type Category XANDER IDCO Episode Detection Interval Ventricular 923 ms IDCO Episode Duration 53 s IDCO Episode Detection And Therapy Details Q IDCO Episode Identifier ATR-120 IDCO Episode Date Time [id number] IDCO Episode Type Category AT/AF IDCO Episode Vendor Type Category ATR IDCO Episode Detection Interval Atrial 265 ms IDCO Episode Duration 52 s IDCO Episode Detection And Therapy Details ATR IDCO Episode Identifier ATR-119 IDCO Episode Date Time [id number] IDCO Episode Type Category AT/AF IDCO Episode Vendor Type Category ATR IDCO Episode Detection Interval Atrial 227 ms IDCO Episode Duration 19,859 s IDCO Episode Detection And Therapy Details ATR IDCO Episode Identifier ATR-118 IDCO Episode Date Time [id number] IDCO Episode Type Category AT/AF IDCO Episode Vendor Type Category ATR IDCO Episode Detection Interval Atrial 800 ms IDCO Episode Duration 1 s IDCO Episode Detection And Therapy Details ATR IDCO Episode Identifier ATR-117 IDCO Episode Date Time [id number] IDCO Episode Type Category AT/AF IDCO Episode Vendor Type Category ATR IDCO Episode Detection Interval Atrial 287 ms IDCO Episode Duration 27 s IDCO Episode Detection And Therapy Details ATR IDCO Episode Identifier ATR-116 IDCO Episode Date Time [id number] IDCO Episode Type Category AT/AF IDCO Episode Vendor Type Category ATR IDCO Episode Detection Interval Atrial 882 ms IDCO Episode Duration 4 s IDCO Episode Detection And Therapy Details ATR IDCO Episode Identifier ATR-115 IDCO Episode Date Time [id number] IDCO Episode Type Category AT/AF IDCO Episode Vendor Type Category ATR IDCO Episode Detection Interval Atrial 317 ms IDCO Episode Duration 487 s IDCO Episode Detection And Therapy Details ATR IDCO Episode Identifier ATR-114 IDCO Episode Date Time [id number] IDCO Episode Type Category AT/AF IDCO Episode Vendor Type Category ATR IDCO Episode Detection Interval Atrial 241 ms IDCO Episode Duration 53 s IDCO Episode Detection And Therapy Details ATR IDCO Episode Identifier V-171 IDCO Episode Date Time [id number] IDCO Episode Type Category VT IDCO Episode Vendor Type Category NSVT IDCO Episode Type Induced Flag NO IDCO Episode Detection Interval Ventricular 353 ms IDCO Episode Duration 6 s IDCO Episode Detection And Therapy Details NonSustV IDCO Episode Identifier V-170 IDCO Episode Date Time [id number] IDCO Episode Type Category VT IDCO Episode Vendor Type Category NSVT IDCO Episode Type Induced Flag NO IDCO Episode Detection Interval Ventricular 351 ms IDCO Episode Duration 6 s IDCO Episode Detection And Therapy Details NonSustV IDCO Episode Identifier V-169 IDCO Episode Date Time [id number] IDCO Episode Type Category VT IDCO Episode Vendor Type Category NSVT IDCO Episode Type Induced Flag NO IDCO Episode Detection Interval Ventricular 351 ms IDCO Episode Duration 6 s IDCO Episode Detection And Therapy Details NonSustV IDCO Episode Identifier V-168 IDCO Episode Date Time [id number] IDCO Episode Type Category VT IDCO Episode Vendor Type Category NSVT IDCO Episode Type Induced Flag NO IDCO Episode Detection Interval Ventricular 351 ms IDCO Episode Duration 18 s IDCO Episode Detection And Therapy Details NonSustV IDCO Episode Identifier V-167 IDCO Episode Date Time [id number] IDCO Episode Type Category VT IDCO Episode Vendor Type Category NSVT IDCO Episode Type Induced Flag NO IDCO Episode Detection Interval Ventricular 359 ms IDCO Episode Duration 10 s IDCO Episode Detection And Therapy Details NonSustV IDCO Episode Identifier V-166 IDCO Episode Date Time [id number] IDCO Episode Type Category VT IDCO Episode Vendor Type Category NSVT IDCO Episode Type Induced Flag NO IDCO Episode Detection Interval Ventricular 359 ms IDCO Episode Duration 7 s IDCO Episode Detection And Therapy Details NonSustV IDCO Episode Identifier V-165 IDCO Episode Date Time [id number] IDCO Episode Type Category VT IDCO Episode Vendor Type Category NSVT IDCO Episode Type Induced Flag NO IDCO Episode Detection Interval Ventricular 305 ms IDCO Episode Duration 7 s IDCO Episode Detection And Therapy Details NonSustV IDCO Episode Identifier V-164 IDCO Episode Date Time [id number] IDCO Episode Type Category VT IDCO Episode Vendor Type Category NSVT IDCO Episode Type Induced Flag NO IDCO Episode Detection Interval Ventricular 368 ms IDCO Episode Duration 6 s IDCO Episode Detection And Therapy Details NonSustV IDCO Episode Identifier V-163 IDCO Episode Date Time [id number] IDCO Episode Type Category VT IDCO Episode Vendor Type Category NSVT IDCO Episode Type Induced Flag NO IDCO Episode Detection Interval Ventricular 368 ms IDCO Episode Duration 7 s IDCO Episode Detection And Therapy Details NonSustV IDCO Episode Identifier V-162 IDCO Episode Date Time [id number] IDCO Episode Type Category VT IDCO Episode Vendor Type Category NSVT IDCO Episode Type Induced Flag NO IDCO Episode Detection Interval Ventricular 377 ms IDCO Episode Duration 7 s IDCO Episode Detection And Therapy Details NonSustV IDCO Episode Identifier ATR-113 IDCO Episode Date Time [id number] IDCO Episode Type Category AT/AF IDCO Episode Vendor Type Category ATR IDCO Episode Detection Interval Atrial 258 ms IDCO Episode Duration 10 s IDCO Episode Detection And Therapy Details ATR IDCO Episode Identifier ATR-112 IDCO Episode Date Time [id number] IDCO Episode Type Category AT/AF IDCO Episode Vendor Type Category ATR IDCO Episode Detection Interval Atrial 246 ms IDCO Episode Duration 228 s IDCO Episode Detection And Therapy Details ATR IDCO Episode Identifier ATR-111 IDCO Episode Date Time [id number] IDCO Episode Type Category AT/AF IDCO Episode [...] E162 IDCO Implantable Pulse Generator Serial Number [id number] IDCO Implantable Pulse Generator Edge Polisher [employer] IDCO Implantable Pulse Generator Implant Date 20140110 IDCO Implantable Lead Model 4136 IDCO Implantable Lead Serial Number [id number] IDCO Implantable Lead Edge Polisher Guidant IDCO Implantable Lead Implant Date 20130421 IDCO Implantable Lead Polarity Type Bipolar Lead IDCO Implantable Lead Location Right Atrium IDCO Implantable Lead Model 0292 IDCO Implantable Lead Serial Number [id number] IDCO Implantable Lead Edge Polisher [employer] IDCO Implantable Lead Implant Date IDCO [...] IDCO Lead Channel Pacing Threshold Measurement Method Capital Markets Specialist Manual IDCO Lead Channel Pacing Threshold [...] IDCO Lead Channel Pacing Threshold Measurement Method Capital Markets Specialist Manual IDCO Lead Channel Pacing Threshold [...] on filedocumented in this encounter Care Teams Labeling Specialist Relationship Specialty Start Date End Date Dewayne Carrington MD PCP - General 09/02/16 documented as of this encounter
--- OUTSIDE RECORDS SUMMARY | 2024-04-19 15:28 | XMS_ITS | Encounter Summary ---
Author Organization [facility] [place] [address] Care Team Providers Care Cattle Examiner Name Role Phone Ángel Bingham MD Primary Care Provider [phone] Reason for Visit * Reason Comments Medication Refill Encounter Details Date Type Department Care Team (Late st Contact Info) Description 04/12/2016 Refill Cardiology at [address] [phone] Kit Self MD [facility] [place] [address] Medication Refill Social History Tobacco Use Types [...] AM EST Hospital Encounter Non-[place] [address] Arrived documented as of this encounter Visit Diagnoses Not on filedocumented in this encounter Care Teams Cattle Examiner Relationship Specialty Start Date End Date Ángel Bingham MD [facility] [address] [place] [address] PCP - General 01/31/14 09/01/16 documented as of this encounter
--- OUTSIDE RECORDS SUMMARY | 2024-04-19 15:28 | XMS_ITS | Encounter Summary ---
Author Organization [facility] Address [facility] [place] [address] Care Team Providers Care Group Worker Name Role Phone Dewayne Carrington MD Primary Care Provider [phone] Encounter Details Date Type Department Care Team ([facility] Contact Info) Description 09/02/2016 External Results [place] [phone] Danae Sepulveda [address] [place] [address] Social History Tobacco Use Types Packs/Day Years [...] Upcoming Encounters Date Type Department Care Team ([facility] Contact Info) Description 06/15/2024 10:00 AM EST Hospital Encounter Non-Invasive [place] [address] Arrived documented as of this encounter Procedures Procedure Name Priority Date/Time Associated Diagnosis Comments ECG SCAN Routine 09/02/2016 documented in this encounter Results * Scan Doc: ECG (09/02/2016) Danae Sepulveda MEDIA MGR SCAN EXT O RDR/RSLT documented in this encounter Visit Diagnoses Not on filedocumented in this encounter Care Teams Group Worker Relationship Specialty Start Date End Date Dewayne Carrington MD PCP - General 09/02/16 documented as of this encounter
--- OUTSIDE RECORDS SUMMARY | 2024-04-19 15:28 | XMS_ITS | Encounter Summary ---
Author Organization [facility] Address [facility] [place] [address] Care Team Providers Care Business Specialist Name Role Phone Dewayne Carrington MD Primary Care Provider [phone] Encounter Details Date Type Department Care Team (Latest Contact Info) Description 09/30/2016 2:20 PM EDT Office Visit Cardiology at [address] [address] Kit Self MD [facility] [place] [address] ASCVD (arteriosclerotic cardiovascular disease) Social History Tobacco [...] his stroke risk with his fairly high [id number] score. We once again reviewed recommendations for [...] is giving this thought Kit Self MD, [facility] * Huy Butler MD - 09/30/2016 2:20 [...] in discussion with Dr. Clair Butler MD hull sorter Pager [phone]. documented in this encounter Plan of Treatment Upcoming Encounters Date Type Department Care Team (Late st Contact Info) Description 06/15/2024 10:00 AM EST Hospital Encounter Non-Invasive [place] [address] Arrived documented as of this encounter Visit Diagnoses Diagnosis ASCVD (arteriosclerotic cardiovascular disease) Unspecified cardiovascular disease documented in this encounter Care Teams Business Specialist Relationship Specialty Start Date End Date Dewayne Carrington MD PCP - General 09/02/16 documented as of this encounter
--- OUTSIDE RECORDS SUMMARY | 2024-04-19 15:28 | XMS_ITS | Encounter Summary ---
Author Organization [place] [address] Care Team Providers Care Oxygen System Tester Name Role Phone Dewayne Carrington MD Primary Care Provider [phone] Reason for Referral * Diagnostic Test (Routine) - Closed Specialty Diagnoses / Procedures Referred By Contac t Referred To Contact Cardiology Diagnoses Coronary artery disease involving [place] coronary artery of [place] heart without angina pectoris Procedures Echocardiogram Transthoracic(Leb) Huy Butler MD [facility] [place] [address] [facility] [place] [address] Referral ID Status Reason Start Date Expiration Date V isits Requested Visits Authorized [id number] Closed Specialty Service Requested 10/01/2016 10/01/2017 1 1 Encounter Details Date Type Department Care Team (Late st Contact Info) Description 10/01/2016 [place] [address] Huy Butler MD [facility] [place] [address] Coronary artery disease involving [place] coronary artery of [place] heart without angina pectoris Social History Tobacco [...] AM EST Hospital Encounter Non-Invasive [place] [address] Arrived documented as of this encounter Results * ECHO COMPLETE W CONTRAST (11/06/2016 11:56 AM EDT) EF 49 HEARTLAB SYSTEM Anatomical Region Laterality Modality Other 11/06/2016 Narrative 11/06/2016 12:33 PM EDT Procedure: ?Transthoracic Echocardiogram Patient: ?PAMELA CHRISTIE P ?(Age): 1950(66y) Med Rec#: ? [id number] ?Sex: ?M ? [facility] Loc: ? [facility] ?Ht / Wt: ??185(cm)/91(kg) Pt. Loc: ?Echo Lab ?BSA: ?2.15 Study Date: ?? 11/06/2016 ?Pt. Type: Outpatient Tape: ? Referring: CAS Referring: Kit Self Reading: Huseyin Espinoza ([id number]) Global Marketing Specialist: Stef Hayden Diagnosis: *ICD-10-PCS Atherosclerotic heart disease of [place] coronary artery without angina pectoris (I25.10) CPT Codes: *Echo Full (52596) *Spectral Doppler (03272) *Color Doppler (24001) *Optison ([id number]) Rhythm: ? Paced rhythm BP: ? 115/72 [...] E-wave Vmax ?0.7 ?m/sec ? MV deceleration qayp874.6 ?msec ? MV A-wave Vmax ?0.7 ?m/sec [...] ? Mid-Inferior ?Hypokinetic ? Mid-Inferoseptal ?Normal ? Advance-Septal ? Normal ? Advance-Anterior ? Normal ? Advance-Lateral ?Normal ? Advance-Inferior ? Hypokinetic ? Advance-Tip ?Normal ? This report has been electronically signed by: Huseyin Espinoza MD ? 11/06/2016 12:33:49 Images reviewed and interpretation verified [facility] Cardiac Ultrasound Laboratory Procedure Note Huseyin Espinoza MD - 11/06/2016 Procedure: Transthoracic Echocardiogram Patient: PAMELA Gordon (Age): 1950(66y) Med Rec#: [id number] Sex: M Site Loc: [facility] Ht / Wt: 185(cm)/91(kg) Pt. Loc: Echo Lab BSA: 2.15 Study Date: 11/06/2016 Pt. Type: Outpatient Tape: Referring: CAS Referring: Kit Self Reading: Huseyin Espinoza ([id number]) Global Marketing Specialist: Stef Hayden Diagnosis: *ICD-10-PCS Atherosclerotic heart disease of [place] coronary artery without angina pectoris (I25.10) CPT Codes: *Echo Full (60195) *Spectral Doppler (33377) *Color Doppler (43765) *Optison (48012LR) Rhythm: Paced rhythm BP: 115/72 SUMMARY: 1. [...] MV E-wave Vmax 0.7 m/sec MV deceleration qslb760.6 msec MV A-wave Vmax 0.7 m/sec MV [...] Normal Mid-Posterolateral Normal Mid-Inferior Hypokinetic Mid-Inferoseptal Normal Advance-Septal Normal Advance-Anterior Normal Advance-Lateral Normal Advance-Inferior Hypokinetic Advance-Tip Normal This report has been electronically signed by: Huseyin Espinoza MD 11/06/2016 12:33:49 Images reviewed and interpretation verified [facility] Cardiac Ultrasound Laboratory Kit Self MD ECHO ORDERABLES documented in this encounter Visit Diagnoses Diagnosis Coronary artery disease involving [place] coronary artery of [place] heart without angina pectoris Coronary artery disease involving [place] coronary artery of [place] heart without angina pectoris documented in this encounter Care Teams Oxygen System Tester Relationship Specialty Start Date End Date Dewayne Carrington MD PCP - General 09/02/16 documented as of this encounter
--- OUTSIDE RECORDS SUMMARY | 2024-04-19 15:28 | XMS_ITS | Encounter Summary ---
[place] [address] Care Team Providers Care Bilingual Loan Processor Name Role Phone Dewayne Carrington MD Primary Care Provider [phone] Encounter Details Date Type Department Care Team (Late st Contact Info) Description 01/06/2017 Orders Only Cardiology at [address] [phone] Social History Tobacco Use Types Packs/Day Years [...] AM EST Hospital Encounter Non-Invasive [place] [address] Arrived documented as of this encounter Procedures Procedure Name Priority Date/Time Associated Diagnosis Comments CARDIAC DEVICE CHECK - REMOTE SCHEDULED Routine 01/06/2017 12:41 AM EDT documented in this encounter Results * Cardiac device check - Remote Scheduled (01/06/2017 12:41 AM EDT) Date Time Interrogation Session [id number] IDCO Type Interrogation Session Remote Scheduled IDCO Clinic Name [facility] IDCO Battery Date Time of Measurements [id number] IDCO Battery Status Beginning of Service IDCO Battery Remaining Longevity 102 mo IDCO Battery Remaining Percentage 100 % IDCO Capacitor Last Charge Date Time IDCO Capacitor Charge Time 10.4 s IDCO Capacitor Charge Type Reformation IDCO Capacitor Last Charge Date Time [id number] IDCO Capacitor Charge Time 3.8 s IDCO Capacitor Charge Energy 21 J IDCO Capacitor Charge Type Shock IDCO Episode Identifier APM-20 IDCO Episode Date Time IDCO Episode Type Category Periodic EGM IDCO Episode Vendor Type Category APMRT IDCO Episode Detection And Therapy Details Presenting EGM IDCO Episode Identifier [id number] IDCO Episode Date Time IDCO Episode Type [...] IDCO Episode Identifier IDCO Episode Date Time [id number] IDCO Episode Type Category Other IDCO Episode Vendor Type Category XANDER IDCO Episode Detection Interval Ventricular 1,034 ms IDCO Episode Duration 62 s IDCO Episode Detection And Therapy Details IDCO Episode Identifier [id number] IDCO Episode Date Time IDCO Episode Type Category Other IDCO Episode Vendor Type Category XANDER IDCO Episode Detection Interval Ventricular 1,176 ms IDCO Episode Duration 63 s IDCO Episode Detection And Therapy Details IDCO Episode Identifier [id number] IDCO Episode Date Time IDCO Episode Type Category Other IDCO Episode Vendor Type Category XANDER IDCO Episode Detection Interval Ventricular 1,053 ms IDCO Episode Duration 60 s IDCO Episode Detection And Therapy Details IDCO Episode Identifier [id number] IDCO Episode Date Time IDCO Episode Type Category Other IDCO Episode Vendor Type Category XANDER IDCO Episode Detection Interval Ventricular 1,034 ms IDCO Episode Duration 53 s IDCO Episode Detection And Therapy Details IDCO Episode Identifier [id number] IDCO Episode Date Time [id number] IDCO Episode Type Category Other IDCO Episode Vendor Type Category XANDER IDCO Episode Detection Interval Ventricular 1,034 ms IDCO Episode Duration 64 s IDCO Episode Detection And Therapy Details Q IDCO Episode Identifier ATR-126 IDCO Episode Date Time [id number] IDCO Episode Type Category AT/AF IDCO Episode Vendor Type Category ATR IDCO Episode Detection Interval Atrial 243 ms IDCO Episode Duration 51 s IDCO Episode Detection And Therapy Details ATR IDCO Episode Identifier ATR-125 IDCO Episode Date Time [id number] IDCO Episode Type Category AT/AF IDCO Episode Vendor Type Category ATR IDCO Episode Detection Interval Atrial 267 ms IDCO Episode Duration 33 s IDCO Episode Detection And Therapy Details ATR IDCO Episode Identifier ATR-124 IDCO Episode Date Time [id number] IDCO Episode Type Category AT/AF IDCO Episode Vendor Type Category ATR IDCO Episode Detection Interval Atrial 213 ms IDCO Episode Duration 136 s IDCO Episode Detection And Therapy Details ATR IDCO Episode Identifier V-173 IDCO Episode Date Time [id number] IDCO Episode Type Category VT IDCO Episode [...] Episode Identifier ATR-122 IDCO Episode Date Time [id number] IDCO Episode Type Category AT/AF IDCO Episode [...] E162 IDCO Implantable Pulse Generator Serial Number [id number] IDCO Implantable Pulse Generator Automotive Worker Foreman [employer] IDCO Implantable Pulse Generator Implant Date 20140110 IDCO Implantable Lead Model 4136 IDCO Implantable Lead Serial Number [id number] IDCO Implantable Lead Automotive Worker Foreman Guidant IDCO Implantable Lead Implant Date 20130421 IDCO Implantable Lead Polarity Type Bipolar Lead IDCO Implantable Lead Location Right Atrium IDCO Implantable Lead Model 0292 IDCO Implantable Lead Serial Number [id number] IDCO Implantable Lead Automotive Worker Foreman [employer] IDCO Implantable Lead Implant Date IDCO [...] IDCO Lead Channel Pacing Threshold Measurement Method Account Consultant Manual IDCO Lead Channel Pacing Threshold [...] IDCO Lead Channel Pacing Threshold Measurement Method Account Consultant Manual IDCO Lead Channel Pacing Threshold [...] on filedocumented in this encounter Care Teams Bilingual Loan Processor Relationship Specialty Start Date End Date Dewayne Carrington MD PCP - General 09/02/16 documented as of this encounter
--- OUTSIDE RECORDS SUMMARY | 2024-04-19 15:28 | XMS_ITS | Encounter Summary ---
[place] [address] Care Team Providers Care Rn New Grad Name Role Phone Ángel Bingham MD Primary Care Provider [phone] Encounter Details Date Type Department Care Team (Late st Contact Info) Description 04/15/2016 Orders Only Cardiology at [address] [phone] Social History Tobacco Use Types Packs/Day Years [...] AM EST Hospital Encounter [place] [address] Arrived documented as of this encounter Procedures Procedure Name Priority Date/Time Associated Diagnosis Comments CARDIAC DEVICE CHECK - REMOTE SCHEDULED Routine 04/15/2016 12:42 AM EST documented in this encounter Results * (ABNORMAL) Cardiac device check - Remote Scheduled (04/15/2016 12:42 AM EST) Date Time Interrogation Session [id number] IDCO Type Interrogation Session Remote Scheduled IDCO Clinic Name [facility] IDCO Battery Date Time of Measurements [id number] IDCO Battery Status Beginning of Service IDCO Battery Remaining Longevity 108 mo IDCO Battery Remaining Percentage 100 % IDCO Capacitor Last Charge Date Time [id number] IDCO Capacitor Charge Time 10.3 s IDCO Capacitor Charge Type Reformation IDCO Capacitor Last Charge Date Time [id number] IDCO Capacitor Charge Time 3.8 s IDCO Capacitor Charge Energy 21 J IDCO Capacitor Charge Type Shock IDCO Episode Identifier APM-17 IDCO Episode Date Time [id number] IDCO Episode Type Category Periodic EGM IDCO Episode Vendor Type Category APMRT IDCO Episode Detection And Therapy Details Presenting EGM IDCO Episode Identifier [id number] IDCO Episode Date Time [id number] IDCO Episode Type Category Other IDCO Episode Vendor Type Category XANDER IDCO Episode Detection Interval Ventricular 1,017 ms IDCO Episode Duration 61 s IDCO Episode Detection And Therapy Details IDCO Episode Identifier [id number] IDCO Episode Date Time [id number] IDCO Episode Type Category Other IDCO Episode Vendor Type Category XANDER IDCO Episode Detection Interval Ventricular 1,034 ms IDCO Episode Duration 63 s IDCO Episode Detection And Therapy Details IDCO Episode Identifier [id number] IDCO Episode Date Time [id number] IDCO Episode Type Category Other IDCO Episode Vendor Type Category XANDER IDCO Episode Detection Interval Ventricular 968 ms IDCO Episode Duration 59 s IDCO Episode Detection And Therapy Details IDCO Episode Identifier [id number] IDCO Episode Date Time [id number] IDCO Episode Type Category Other IDCO Episode Vendor Type Category XANDER IDCO Episode Detection Interval Ventricular 984 ms IDCO Episode Duration 61 s IDCO Episode Detection And Therapy Details IDCO Episode Identifier [id number] IDCO Episode Date Time [id number] IDCO Episode Type Category Other IDCO Episode Vendor Type Category XANDER IDCO Episode Detection Interval Ventricular 1,017 ms IDCO Episode Duration 61 s IDCO Episode Detection And Therapy Details IDCO Episode Identifier [id number] IDCO Episode Date Time [id number] IDCO Episode Type Category Other IDCO Episode Vendor Type Category XANDER IDCO Episode Detection Interval Ventricular 1,017 ms IDCO Episode Duration 62 s IDCO Episode Detection And Therapy Details RYTHMIQ IDCO Episode Identifier [id number] IDCO Episode Date Time [id number] IDCO Episode Type Category Other IDCO Episode Vendor Type Category XANDER IDCO Episode Detection Interval Ventricular 1,000 ms IDCO Episode Duration 59 s IDCO Episode Detection And Therapy Details RYMIQ IDCO Episode Identifier [id number] IDCO Episode Date Time [id number] IDCO Episode Type Category Other IDCO Episode Vendor Type Category XANDER IDCO Episode Detection Interval Ventricular 1,000 ms IDCO Episode Duration 60 s IDCO Episode Detection And Therapy Details RYMIQ IDCO Episode Identifier [id number] IDCO Episode Date Time [id number] IDCO Episode Type Category Other IDCO Episode Vendor Type Category XANDER IDCO Episode Detection Interval Ventricular 1,017 ms IDCO Episode Duration 60 s IDCO Episode Detection And Therapy Details RYMIQ IDCO Episode Identifier [id number] IDCO Episode Date Time [id number] IDCO Episode Type Category Other IDCO Episode Vendor Type Category XANDER IDCO Episode Detection Interval Ventricular 952 ms IDCO Episode Duration 60 s IDCO Episode Detection And Therapy Details MIQ IDCO Episode Identifier V-148 IDCO Episode Date Time [id number] IDCO Episode Type Category VT IDCO Episode Vendor Type Category NSVT IDCO Episode Type Induced Flag NO IDCO Episode Detection Interval Ventricular 380 ms IDCO Episode Duration 5 s IDCO Episode Detection And Therapy Details NonSustV IDCO Episode Identifier V-147 IDCO Episode Date Time [id number] IDCO Episode Type Category VT IDCO Episode Vendor Type Category NSVT IDCO Episode Type Induced Flag NO IDCO Episode Detection Interval Ventricular 405 ms IDCO Episode Duration 5 s IDCO Episode Detection And Therapy Details NonSustV IDCO Episode Identifier V-146 IDCO Episode Date Time [id number] IDCO Episode Type Category VT IDCO Episode Vendor Type Category NSVT IDCO Episode Type Induced Flag NO IDCO Episode Detection Interval Ventricular 390 ms IDCO Episode Duration 20 s IDCO Episode Detection And Therapy Details NonSustV IDCO Episode Identifier V-145 IDCO Episode Date Time [id number] IDCO Episode Type Category VT IDCO Episode Vendor Type Category NSVT IDCO Episode Type Induced Flag NO IDCO Episode Detection Interval Ventricular 387 ms IDCO Episode Duration 53 s IDCO Episode Detection And Therapy Details NonSustV IDCO Episode Identifier V-144 IDCO Episode Date Time [id number] IDCO Episode Type Category VT IDCO Episode Vendor Type Category NSVT IDCO Episode Type Induced Flag NO IDCO Episode Detection Interval Ventricular 455 ms IDCO Episode Duration 18 s IDCO Episode Detection And Therapy Details NonSustV IDCO Episode Identifier V-143 IDCO Episode Date Time [id number] IDCO Episode Type Category VT IDCO Episode Vendor Type Category NSVT IDCO Episode Type Induced Flag NO IDCO Episode Detection Interval Ventricular 375 ms IDCO Episode Duration 32 s IDCO Episode Detection And Therapy Details NonSustV IDCO Episode Identifier V-142 IDCO Episode Date Time [id number] IDCO Episode Type Category VT IDCO Episode Vendor Type Category NSVT IDCO Episode Type Induced Flag NO IDCO Episode Detection Interval Ventricular 408 ms IDCO Episode Duration 5 s IDCO Episode Detection And Therapy Details NonSustV IDCO Episode Identifier V-141 IDCO Episode Date Time [id number] IDCO Episode Type Category VT IDCO Episode Vendor Type Category NSVT IDCO Episode Type Induced Flag NO IDCO Episode Detection Interval Ventricular 382 ms IDCO Episode Duration 24 s IDCO Episode Detection And Therapy Details NonSustV IDCO Episode Identifier V-140 IDCO Episode Date Time [id number] IDCO Episode Type Category VT IDCO Episode Vendor Type Category NSVT IDCO Episode Type Induced Flag NO IDCO Episode Detection Interval Ventricular 364 ms IDCO Episode Duration 51 s IDCO Episode Detection And Therapy Details NonSustV IDCO Episode Identifier V-139 IDCO Episode Date Time [id number] IDCO Episode Type Category VT IDCO Episode Vendor Type Category NSVT IDCO Episode Type Induced Flag NO IDCO Episode Detection Interval Ventricular 414 ms IDCO Episode Duration 8 s IDCO Episode Detection And Therapy Details NonSustV IDCO Episode Identifier ATR-110 IDCO Episode Date Time [id number] IDCO Episode Type Category AT/AF IDCO Episode Vendor Type Category ATR IDCO Episode Detection Interval Atrial 207 ms IDCO Episode Duration 23,715 s IDCO Episode Detection And Therapy Details ATR IDCO Episode Identifier ATR-109 IDCO Episode Date Time [id number] IDCO Episode Type Category AT/AF IDCO Episode Vendor Type Category ATR IDCO Episode Detection Interval Atrial 199 ms IDCO Episode Duration 347 s IDCO Episode Detection And Therapy Details ATR IDCO Episode Identifier ATR-108 IDCO Episode Date Time [id number] IDCO Episode Type Category AT/AF IDCO Episode Vendor Type Category ATR IDCO Episode Detection Interval Atrial 203 ms IDCO Episode Duration IDCO Episode Detection And Therapy Details ATR IDCO Episode Identifier ATR-107 IDCO Episode Date Time [id number] IDCO Episode Type Category AT/AF IDCO Episode [...] Episode Identifier ATR-105 IDCO Episode Date Time [id number] IDCO Episode Type Category AT/AF IDCO Episode Vendor Type Category ATR IDCO Episode Detection Interval Atrial 197 ms IDCO Episode Duration 22 s IDCO Episode Detection And Therapy Details ATR IDCO Episode Identifier ATR-104 IDCO Episode Date Time [id number] IDCO Episode Type Category AT/AF IDCO Episode Vendor Type Category ATR IDCO Episode Detection Interval Atrial 199 ms IDCO Episode Duration 1,223 s IDCO Episode Detection And Therapy Details ATR IDCO Episode Identifier ATR-103 IDCO Episode Date Time [id number] IDCO Episode Type Category AT/AF IDCO Episode Vendor Type Category ATR IDCO Episode Detection Interval Atrial 253 ms IDCO Episode Duration 984 s IDCO Episode Detection And Therapy Details ATR IDCO Episode Identifier ATR-102 IDCO Episode Date Time [id number] IDCO Episode Type Category AT/AF IDCO Episode Vendor Type Category ATR IDCO Episode Detection Interval Atrial 195 ms IDCO Episode Duration 320 s IDCO Episode Detection And Therapy Details ATR IDCO Episode Identifier ATR-101 IDCO Episode Date Time [id number] IDCO Episode Type Category AT/AF IDCO Episode Vendor Type Category ATR IDCO Episode Detection Interval Atrial 205 ms IDCO Episode Duration 1 s IDCO Episode Detection And Therapy Details ATR IDCO Episode Identifier V-92 IDCO Episode Date Time [id number] IDCO Episode Type Category VT IDCO Episode [...] E162 IDCO Implantable Pulse Generator Serial Number [id number] IDCO Implantable Pulse Generator Application Architect [employer] IDCO Implantable Pulse Generator Implant Date 20140110 IDCO Implantable Lead Model 4136 IDCO Implantable Lead Serial Number [id number] IDCO Implantable Lead Application Architect Guidant IDCO Implantable Lead Implant Date 20130421 IDCO Implantable Lead Polarity Type Bipolar Lead IDCO Implantable Lead Location Right Atrium IDCO Implantable Lead Model 0292 IDCO Implantable Lead Serial Number [id number] IDCO Implantable Lead Application Architect [employer] IDCO Implantable Lead Implant Date IDCO [...] Lead Channel Pacing Threshold Measurement Method Research Contracts Supervisor Manual IDCO Lead Channel Pacing Threshold [...] Lead Channel Pacing Threshold Measurement Method Research Contracts Supervisor Manual IDCO Lead Channel Pacing Threshold [...] filedocumented in this encounter Care Teams Rn New Grad Relationship Specialty Start Date End Date Ángel Bingham MD [facility] [address] [facility] [place] [address] PCP - General 01/31/14 09/01/16 documented as of this encounter
--- OUTSIDE RECORDS SUMMARY | 2024-04-19 15:28 | XMS_ITS | Encounter Summary ---
Author Organization [facility] [address] [facility] [address] Care Team Providers Care Head Butler Name Role Phone Dewayne Carrington MD Primary Care Provider [phone] Encounter Details Date Type Department Care Team (Late st Contact Info) Description 01/20/2017 Telephone Cardiology at [address] [phone] Gisselle Sutherland RN Social History Tobacco Use [...] AM EST Hospital Encounter [place] [address] Arrived documented as of this encounter Visit Diagnoses Not on filedocumented in this encounter Care Teams Head Butler Relationship Specialty Start Date End Date Dewayne Carrington MD PCP - General 09/02/16 documented as of this encounter
--- OUTSIDE RECORDS SUMMARY | 2024-04-19 15:28 | XMS_ITS | Encounter Summary ---
Author Organization [facility] [place] [address] Care Team Providers Care Tunnel Form Placing Supervisor Name Role Phone Dewayne Carrington MD Primary Care Provider [phone] Encounter Details Date Type Department Care Team (Latest Contact Info) Description 11/06/2016 1:00 PM EDT Office Visit Cardiology at [address] [phone] Kit Self MD [facility] [place] [address] Typical atrial flutter; ASCVD (arteriosclerotic cardiovascular disease) [...] from the original note were not included. [facility] JAYA Cao [address] CARDIOLOGY OUTPATIENT FOLLOW-UP NOTE Marquez Hendrix [id number] PCP: Dewayne Carrington MD 11/06/2016 PRIMARY CARE PROVIDER: Dewayne Carrington MD PROBLEM LIST: Patient Active Problem List Diagnosis ??? ASCVD (arteriosclerotic cardiovascular disease) ?? Heart catheterization in [facility] in 2007 with placement of a stent in an unspecified vessel ?? Repeat heart catheterization in 2008 with placement of stents to both the LAD and circumflex ?? Followup heart catheterization in 2008 showing stable results in both vessels ?? Recurrent chest discomfort in a somewhat atypical pattern beginning fall ?? Nuclear stress test at [facility] in [place], [place] May 02, 2013 during which he developed left shoulder and arm discomfort during submaximal exercise on the treadmill and after which he was converted to a pharmacologic test; nuclear imaging showed ejection fraction of 45% with a partially reversible inferior defect ?? Cath [facility] 05/13/2013: normal left main, mild diffuse disease throughout the LAD with an 80% mid stenosis representing a restenosis lesion, mild diffuse disease in the proximal obtuse marginal branch, and mild diffuse disease throughout the right coronary artery; status post 3.0 X 12 mm JON to 80%mid-LAD lesion (in-stent restenosis) ?? Heart catheterization [facility] January 06, 2014 showing normal left main, hazy 50% mid LAD stenosis, mild diffuse disease throughout the circumflex, and moderate diffuse disease in the proximal RCA with a totally occluded distal RCA with brisk flow via bridging collaterals; fractional flow reserveon the LAD 0.85 ?? Nuclear stress test [facility] August 2016 reportedly showing a small area of inferior ischemia (final report pending) ?? Echo 11/06/16 showing inferior HK with EF 49%; no valvular disease ??? Typical atrial flutter ?? Occurred 06/08/13, lasted about 24 hours, and v rate about 80 (documented on ICD interrogation 07/18/14) ?? [id number] score = 3 ?? Patient initially reluctant to be anticoagulated as recommended ??? Atrial pacemaker lead displacement New finding at office follow up 04/10/2014 Plan lead reposition/replacement ??? ICD (implantable cardioverter-defibrillator), dual, in situ New Atrial electrode: Guidant Dextrus Model# 4126-53 cm Serial# [id number] ?? Bipolar, steroid-tipped, active-fixation IS-1 lead ?? [...] at 10 V: No Old Ventricular electrode: [place] [employer] [place] Model# 0292 Serial# [id number] ?? Bipolar, steroid-tipped, active-fixation DF-4 lead ?? [...] Atrial electrode: Guidant Dextrus Model# 4136 Serial# [id number] ?? Bipolar, steroid-tipped, active-fixation IS-1 lead ?? Access: Axillary vein ?? Location Removed 04/17/2014 ?? Implanted: 01/10/2014 Pulse generator: [employer] Incepta Model# E162 Serial# [id number] ?? DDDR ICD ?? Location: Subcutaneous The [...] of his paroxysmal atrial fibrillation and elevated [id number] score we have recommended formal anticoagulation and [...] (Bezet) 460 ms MUSE SYSTEM Calculated P Red[place] 42 degrees MUSE SYSTEM Calculated R [place] -53 degrees MUSE SYSTEM Calculated T [place] -5 degrees MUSE SYSTEM INTERPRETATION Normal sinus [...] disease documented in this encounter Care Teams Tunnel Form Placing Supervisor Relationship Specialty Start Date End Date Raser, Dewayne, MD PCP - General 09/02/16 documented as of this encounter
--- OUTSIDE RECORDS SUMMARY | 2024-04-19 15:28 | XMS_ITS | Encounter Summary ---
[place] [address] Care Team Providers Care Home Connect Lpn Name Role Phone Dewayne Carrington MD Primary Care Provider [phone] Encounter Details Date Type Department Care Team (Late st Contact Info) Description 02/25/2017 Orders Only Cardiology at [address] [phone] Social History Tobacco Use Types Packs/Day Years [...] AM EST Hospital Encounter Non-[place] [address] Arrived documented as of this encounter Procedures Procedure Name Priority Date/Time Associated Diagnosis Comments CARDIAC DEVICE CHECK - REMOTE PATIENT INITIATED Routine 02/25/2017 1:24 PM EST documented in this encounter Results * Cardiac device check - Remote Patient Initiated (02/25/2017 1:24 PM EST) Date Time Interrogation Session [id number] IDCO Type Interrogation Session Remote Patient Initiated IDCO Clinic Name [facility] IDCO Battery Date Time of Measurements [id number] IDCO Battery Status Beginning of Service IDCO Battery Remaining Longevity 102 mo IDCO Battery Remaining Percentage 100 % IDCO Capacitor Last Charge Date Time IDCO Capacitor Charge Time 10.4 s IDCO Capacitor Charge Type Reformation IDCO Capacitor Last Charge Date Time [id number] IDCO Capacitor Charge Time 3.8 s IDCO Capacitor Charge Energy 21 J IDCO Capacitor Charge Type Shock IDCO Episode Identifier APM-23 IDCO Episode Date Time [id number] IDCO Episode Type Category Periodic EGM IDCO Episode Vendor Type Category APMRT IDCO Episode Detection And Therapy Details Presenting EGM IDCO Episode Identifier [id number] IDCO Episode Date Time [id number] IDCO Episode Type Category Other IDCO Episode Vendor Type Category XANDER IDCO Episode Detection Interval Ventricular 909 ms IDCO Episode Duration 56 s IDCO Episode Detection And Therapy Details IDCO Episode Identifier V-198 IDCO Episode Date Time [id number] IDCO Episode Type Category VT IDCO Episode Vendor Type Category NSVT IDCO Episode Type Induced Flag NO IDCO Episode Detection Interval Ventricular 349 ms IDCO Episode Duration 7 s IDCO Episode Detection And Therapy Details NonSustV IDCO Episode Identifier Q- IDCO Episode Date Time IDCO Episode Type Category Other IDCO Episode Vendor Type Category XANDER IDCO Episode Detection Interval Ventricular 882 ms IDCO Episode Duration 55 s IDCO Episode Detection And Therapy Details IDCO Episode Identifier [id number] IDCO Episode Date Time [id number] IDCO Episode Type Category Other IDCO Episode [...] Detection And Therapy Details IDCO Episode Identifier [id number] IDCO Episode Date Time IDCO Episode Type Category Other IDCO Episode Vendor Type Category XANDER IDCO Episode Detection Interval Ventricular 1,034 ms IDCO Episode Duration 62 s IDCO Episode Detection And Therapy Details Q IDCO Episode Identifier [id number] IDCO Episode Date Time [id number] IDCO Episode Type Category Other IDCO Episode Vendor Type Category XANDER IDCO Episode Detection Interval Ventricular 909 ms IDCO Episode Duration 54 s IDCO Episode Detection And Therapy Details Q IDCO Episode Identifier [id number] IDCO Episode Date Time [id number] IDCO Episode Type Category Other IDCO Episode Vendor Type Category XANDER IDCO Episode Detection Interval Ventricular 923 ms IDCO Episode Duration 54 s IDCO Episode Detection And Therapy Details Q IDCO Episode Identifier [id number] IDCO Episode Date Time [id number] IDCO Episode Type Category Other IDCO Episode Vendor Type Category XANDER IDCO Episode Detection Interval Ventricular 909 ms IDCO Episode Duration 54 s IDCO Episode Detection And Therapy Details Q IDCO Episode Identifier [id number] IDCO Episode Date Time [id number] IDCO Episode Type Category Other IDCO Episode Vendor Type Category XANDER IDCO Episode Detection Interval Ventricular 909 ms IDCO Episode Duration 53 s IDCO Episode Detection And Therapy Details Q IDCO Episode Identifier [id number] IDCO Episode Date Time IDCO Episode Type [...] E162 IDCO Implantable Pulse Generator Serial Number [id number] IDCO Implantable Pulse Generator Supervisor Concrete Stone [employer]ricating [employer] IDCO Implantable Pulse Generator Implant Date 20140110 IDCO Implantable Lead Model 4136 IDCO Implantable Lead Serial Number [id number] IDCO Implantable Lead Supervisor Concrete Stone Fabricating Guidant IDCO Implantable Lead Implant Date 20130421 IDCO Implantable Lead Polarity Type Bipolar Lead IDCO Implantable Lead Location Right Atrium IDCO Implantable Lead Model 0292 IDCO Implantable Lead Serial Number [id number] IDCO Implantable Lead Supervisor Concrete Stone Fabricating [employer] IDCO Implantable Lead Implant Date IDCO [...] IDCO Lead Channel Pacing Threshold Measurement Method Brokerage Office Manager Manual IDCO Lead Channel Pacing Threshold [...] IDCO Lead Channel Pacing Threshold Measurement Method Brokerage Office Manager Manual IDCO Lead Channel Pacing Threshold [...] Albaro Statistic Date Time End [id number] IDCO Albaro Statistic RA Percent Paced 0 [...] on filedocumented in this encounter Care Teams Home Connect Lpn Relationship Specialty Start Date End Date Dewayne Carrington MD PCP - General 09/02/16 documented as of this encounter
--- OUTSIDE RECORDS SUMMARY | 2024-04-19 15:28 | XMS_ITS | Encounter Summary ---
Author Organization [facility] [place] [address] Care Team Providers Care Hog Operator Name Role Phone Dewayne Carrington MD Primary Care Provider [phone] Reason for Referral * Diagnostic Test (Routine) - Closed Specialty Diagnoses / Procedures Referred By Contac t Referred To Contact Cardiology Diagnoses Coronary artery disease involving [place] coronary artery of [place] heart without angina pectoris Procedures Echocardiogram Transthoracic(Leb) Huy Butler MD [facility] [place] [address] [facility] [place] [address] Referral ID Status Reason Start Date Expiration Date V isits Requested Visits Authorized [id number] Closed Specialty Service Requested 10/01/2016 10/01/2017 1 1 Reason for Visit * Diagnostic Test (Routine) - Closed Specialty Diagnoses / Procedures Referred By Contac t Referred To Contact Cardiology Diagnoses Coronary artery disease involving [place] coronary artery of [place] heart without angina pectoris Procedures Echocardiogram Transthoracic(Leb) Huy Butler MD [facility] [place] [address] [facility] [place] [address] Referral ID Status Reason Start Date Expiration Date V isits Requested Visits Authorized [id number] Closed Specialty Service Requested 10/01/2016 10/01/2017 1 1 Encounter Details Date Type Department Care Team (Latest Contact Info) Description 11/06/2016 10:44 AM EDT - 11/06/2016 11:59 PM EDT Hospital Encounter Non-Invasive Cardiology Lab [facility] [place] [address] Kit Self MD [facility] [address] Coronary artery disease involving [place] coronary artery of [place] heart without angina pectoris Discharge Disposition: Home [...] st Contact Info) Description 06/15/2024 10:00 AM [facility] Hospital Encounter Non-Invasive [place] [address] Arrived documented as of this encounter Procedures Procedure Name Priority Date/Time Associated Diagnosis Comments ECHO COMPLETE W CONTRAST Routine 11/06/2016 11:56 AM EDT Coronary artery disease involving [place] coronary artery of [place] heart without angina pectoris documented in this encounter Results * ECHO COMPLETE W CONTRAST (11/06/2016 11:56 AM EDT) EF 49 HEARTLAB SYSTEM Anatomical Region Laterality Modality Other 11/06/2016 Narrative 11/06/2016 12:33 PM EDT Procedure: ?Transthoracic Echocardiogram Patient: ?PAMELA CHRISTIE P ?(Age): 1950(66y) Med Rec#: ? [id number] ?Sex: ?M ? Site Loc: ? [facility] ?Ht / Wt: ??185(cm)/91(kg) Pt. Loc: ?Echo Lab ?BSA: ?2.15 Study Date: ?? 11/06/2016 ?Pt. Type: Outpatient Tape: ? Referring: CAS Referring: Kit Self Reading: Huseyin Espinoza ([id number]) Fast Food Server: Stef Hayden Diagnosis: *ICD-10-PCS Atherosclerotic heart disease of [place] coronary artery without angina pectoris (I25.10) CPT Codes: *Echo Full (96498) *Spectral Doppler (14700) *Color Doppler (12691) *Optison (32430BV) Rhythm: ? Paced rhythm BP: ? 115/72 [...] E-wave Vmax ?0.7 ?m/sec ? MV deceleration hpml074.6 ?msec ? MV A-wave Vmax ?0.7 ?m/sec [...] ? Mid-Inferior ?Hypokinetic ? Mid-Inferoseptal ?Normal ? [place]-Septal ? Normal ? [place]-Anterior ? Normal ? [place]-Lateral ?Normal ? [place]-Inferior ? Hypokinetic ? [place]-Tip ?Normal ? This report has been electronically signed by: Huseyin Espinoza MD ? 11/06/2016 12:33:49 Images reviewed and interpretation verified [facility] Cardiac Ultrasound Laboratory Procedure Note Huseyin Espinoza MD - 11/06/2016 Procedure: Transthoracic Echocardiogram Patient: PAMELA Gordon (Age): 1950(66y) Med Rec#: [id number] Sex: M Site Loc: [facility] Ht / Wt: 185(cm)/91(kg) Pt. Loc: Echo Lab BSA: 2.15 Study Date: 11/06/2016 Pt. Type: Outpatient Tape: Referring: CAS Referring: Kit Self Reading: Huseyin Espinoza ([id number]) Fast Food Server: Stef Hayden Diagnosis: *ICD-10-PCS Atherosclerotic heart disease of [place] coronary artery without angina pectoris (I25.10) CPT Codes: *Echo Full (87830) *Spectral Doppler (42660) *Color Doppler (95662) *Optison (56548NY) Rhythm: Paced rhythm BP: 115/72 SUMMARY: 1. [...] MV E-wave Vmax 0.7 m/sec MV deceleration icmv212.6 msec MV A-wave Vmax 0.7 m/sec MV [...] Normal Mid-Posterolateral Normal Mid-Inferior Hypokinetic Mid-Inferoseptal Normal [place]-Septal Normal [place]-Anterior Normal [place]-Lateral Normal [place]-Inferior Hypokinetic [place]-Tip Normal This report has been electronically signed by: Huseyin Espinoza MD 11/06/2016 12:33:49 Images reviewed and interpretation verified [facility] Cardiac Ultrasound Laboratory Kit Self MD ECHO ORDERABLES documented in this encounter Visit Diagnoses Diagnosis Coronary artery disease involving [place] coronary artery of [place] heart without angina pectoris documented in this [...] mLs documented in this encounter Care Teams Hog Operator Relationship Specialty Start Date End Date Dewayne Carrington MD PCP - General 09/02/16 documented as of this encounter
--- OUTSIDE RECORDS SUMMARY | 2024-04-19 15:28 | XMS_ITS | Encounter Summary ---
[place] [address] Care Team Providers Care Soaping Machine Back Tender Name Role Phone Dewayne Carrington MD Primary Care Provider [phone] Encounter Details Date Type Department Care Team (Late st Contact Info) Description 12/19/2016 Telephone Cardiology at [address] [address] Suni oCrtes, RN Social History Tobacco Use Types Packs/Day [...] AM EST Hospital Encounter Non[place] [address] Arrived documented as of this encounter Visit Diagnoses Not on filedocumented in this encounter Care Teams Soaping Machine Back Tender Relationship Specialty Start Date End Date Dewayne Carrington MD PCP - General 09/02/16 documented as of this encounter
--- OUTSIDE RECORDS SUMMARY | 2024-04-19 15:28 | XMS_ITS | Encounter Summary ---
[place] [address] Care Team Providers Care Sheep Boner Name Role Phone Ángel Bingham MD Primary Care Provider [phone] Encounter Details Date Type Department Care Team (Late st Contact Info) Description 10/19/2015 External Results Cardiology at [address] [phone] Ángel Bingham MD [facility] [address] [place] [address] Social History Tobacco Use Types Packs/Day Years [...] AM EST Hospital Encounter Non-Invasive [place] [address] Arrived documented as of this encounter Procedures Procedure Name Priority Date/Time Associated Diagnosis Comments EP DEVICE SCAN Routine 10/16/2015 documented in this encounter Results * Scan Doc: EP Device (10/16/2015) Anatomical Region Laterality Modality Other Ángel Bingham MD MEDIA MGR SCAN EXT O RDR/RSLT documented in this encounter Visit Diagnoses Not on filedocumented in this encounter Care Teams Sheep Boner Relationship Specialty Start Date End Date Ángel Bingham MD [facility] [address] [place] [address] PCP - General 01/31/14 09/01/16 documented as of this encounter
--- OUTSIDE RECORDS SUMMARY | 2024-04-19 15:28 | XMS_ITS | Encounter Summary ---
Author Organization [facility] Address [facility] [place] [address] Care Team Providers Care Noc Analyst Name Role Phone Dewayne Carrington MD Primary Care Provider [phone] Encounter Details Date Type Department Care Team (Late st Contact Info) Description 09/03/2016 Telephone Cardiology at [address] [phone] Gisselle Sutherland RN Social History Tobacco Use [...] that he had been seen in the [facility] ED last night. Had a stress test on Friday 09/01. After the test he was upset about stuff that was happening at the apartment. Didn't sleep Thursday night. Yesterday he was very active, didn't feel well, jacked up BP went up to 163/110. Sounds and lights made him feel worse, pressure in his head. Inglis like his ICD might fire. In the ED he reports everything checked out OK. Had labs, EKG, brain scan. They did not have a ui programmer to check ICD. He has sent a remote download to us. Does not have result of stress test yet. Feels better today. BP 135/82 HR 61. Noon 126/75 HR 61. Reports being faxed. documented in this encounter Plan of Treatment Upcoming Encounters Date Type Department Care Team (Late st Contact Info) Description 06/15/2024 10:00 AM [facility] Hospital Encounter Non-[place] [address] Arrived documented as of this encounter Visit Diagnoses Not on filedocumented in this encounter Care Teams Noc Analyst Relationship Specialty Start Date End Date Dewayne Carrington MD PCP - General 09/02/16 documented as of this encounter
--- OUTSIDE RECORDS SUMMARY | 2024-04-19 15:28 | XMS_ITS | Encounter Summary ---
Author Organization [facility] [place] [address] Care Team Providers Care Semiconductor Packages Leak Tester Name Role Phone Ángel Bingham MD Primary Care Provider Reason for Visit * Reason Comments Cardiomyopathy Encounter Details Date Type Department Care Team (Late st Contact Info) Description 07/11/2015 3:00 PM EDT Office Visit Cardiology at [address] [phone] Raul Lopes, NAHUN ICD (implantable cardioverter-defibril lator), [...] in duration. Patient resistant to begin anticoagulation. Full Roll Inspector: Kit Self MD PCP: ÁNGEL BINGHAM MD Final Parameters: New Atrial electrode: Guidant Dextrus Model# 4126-53 cm Serial# [id number] ?? Bipolar, steroid-tipped, active-fixation IS-1 lead ?? [...] at 10 V: No Old Ventricular electrode: [employer] [place] Model# 0292 Serial# [id number] ?? Bipolar, steroid-tipped, active-fixation DF-4 lead ?? [...] Atrial electrode: Guidant Dextrus Model# 4136 Serial# [id number] ?? Bipolar, steroid-tipped, active-fixation IS-1 lead ?? Access: Axillary vein ?? Location Removed 04/17/2014 ?? Implanted: 01/10/2014 Pulse generator: [employer]on [employer] Incepta Model# E162 Serial# [id number] ?? DDDR ICD ?? Location: Subcutaneous Tachy [...] histograms: Reasonable distribution Pacing percentages: AP 35%; QUARRY EQUIPMENT OPERATOR <1% Mode switch episodes: 36 events in [...] AM EST Hospital Encounter Non-[place] [address] Arrived documented as of this encounter Visit Diagnoses Diagnosis ICD (implantable cardioverter-defibrillator), dual, in situ Sustained VT (ventricular tachycardia) Paroxysmal ventricular tachycardia Typical atrial flutter Atrial flutter documented in this encounter Care Teams Semiconductor Packages Leak Tester Relationship Specialty Start Date End Date Ángel Bingham MD [facility] [address] [place] [address] PCP - General 01/31/14 09/01/16 documented as of this encounter
--- OUTSIDE RECORDS SUMMARY | 2024-04-19 15:28 | XMS_ITS | Encounter Summary ---
[place] [address] Care Team Providers Care Paper Twister Name Role Phone Ángel Bingham MD Primary Care Provider [phone] Encounter Details Date Type Department Care Team (Late st Contact Info) Description 04/23/2016 External Results Cardiology at [address] [phone] Ángel Bingham MD [facility] [address] [place] [address] Social History Tobacco Use Types Packs/Day Years [...] AM EST Hospital Encounter Non-Invasive [place] [address] Arrived documented as of this encounter Procedures Procedure Name Priority Date/Time Associated Diagnosis Comments EP DEVICE SCAN Routine 04/15/2016 documented in this encounter Results * Scan Doc: EP Device (04/15/2016) Anatomical Region Laterality Modality Other Ángel Bingham MD MEDIA MGR SCAN EXT O RDR/RSLT documented in this encounter Visit Diagnoses Not on filedocumented in this encounter Care Teams Paper Twister Relationship Specialty Start Date End Date Ángel Bingham MD [facility] [address] [place] [address] PCP - General 01/31/14 09/01/16 documented as of this encounter
--- OUTSIDE RECORDS SUMMARY | 2024-04-19 15:28 | XMS_ITS | Encounter Summary ---
Author Organization [facility] [place] [address] Care Team Providers Care Forensic Ballistics Expert Name Role Phone Dewayne Carrington MD Primary Care Provider [phone] Encounter Details Date Type Department Care Team (Late st Contact Info) Description 01/19/2017 Telephone Cardiology at [address] [phone] Gisselle Sutherland RN Social History Tobacco Use [...] EST Hospital Encounter Non-Invasive [place] [address] Arrived documented as of this encounter Visit Diagnoses Not on filedocumented in this encounter Care Teams Forensic Ballistics Expert Relationship Specialty Start Date End Date Dewayne Carrington MD PCP - General 09/02/16 documented as of this encounter
--- OUTSIDE RECORDS SUMMARY | 2024-04-19 15:28 | XMS_ITS | Encounter Summary ---
[place] [address] Care Team Providers Care Surgeon Partner Name Role Phone Dewayne Carrington MD Primary Care Provider [phone] Encounter Details Date Type Department Care Team ([facility] Contact Info) Description 01/12/2017 External Results Cardiology at [address] [phone] Dewayne Carrington MD [address] [place] [address] Social History Tobacco Use Types Packs/Day Years [...] AM EST Hospital Encounter Non-Invasive [place] [address] Arrived documented as of this encounter Procedures Procedure Name Priority Date/Time Associated Diagnosis Comments EP DEVICE SCAN Routine 01/06/2017 documented in this encounter Results * Scan Doc: EP Device (01/06/2017) Anatomical Region Laterality Modality Other Dewayne Carrington MD MEDIA MGR SCAN EXT O RDR/RSLT documented in this encounter Visit Diagnoses Not on filedocumented in this encounter Care Teams Surgeon Partner Relationship Specialty Start Date End Date Dewayne Carrington MD PCP - General 09/02/16 documented as of this encounter
--- OUTSIDE RECORDS SUMMARY | 2024-04-19 15:28 | XMS_ITS | Encounter Summary ---
Author Organization [facility] [place] [address] Care Team Providers Care C Python Developer Name Role Phone Dewayne Carrington MD Primary Care Provider [phone] Encounter Details Date Type Department Care Team ([facility] st Contact Info) Description 09/30/2016 3:00 PM EDT Office Visit Cardiology at [address] [phone] Chante Robertson RN Sustained VT (ventricular tachycardia) [...] duration. Patient remains resistant to begin anticoagulation. Procedure Analyst: Kit Self MD PCP: Dewayne Carrington MD Device Info: New Atrial electrode: Guidant Dextrus Model# 4126-53 cm Serial# [id number], implanted 04/17/2014 ?? Bipolar, steroid-tipped, active-fixation IS-1 lead ?? Access: Axillary vein ?? Location Right atrial appendage Old Ventricular electrode: [place] [employer] [place] Model# 0292 Serial# [id number] ?? Bipolar, steroid-tipped, active-fixation DF-4 lead ?? Access: Axillary vein ?? Location: Right ventricular apex ?? Implanted: 01/10/2014 Pulse generator: [employer] Incepta Model# E162 Serial# [id number] ?? DDDR ICD ?? Location: Subcutaneous Tachy [...] histograms: Reasonable distribution Pacing percentages: AP 15%; FRONT OFFICE ASSOCIATE <1% Mode switch episodes: A burden of [...] 6 mos. Edy Berry MD Provider: CHANTE ROBERTSON RN Attending: Dr. Berry documented in this encounter Plan of Treatment Upcoming Encounters Date Type Department Care Team (Late st Contact Info) Description 06/15/2024 10:00 AM EST Hospital Encounter Non[place] [address] Arrived documented as of this encounter Visit Diagnoses Diagnosis Sustained VT (ventricular tachycardia) Paroxysmal ventricular tachycardia documented in this encounter Care Teams C Python Developer Relationship Specialty Start Date End Date Dewayne Carrington MD PCP - General 09/02/16 documented as of this encounter
--- OUTSIDE RECORDS SUMMARY | 2024-04-19 15:28 | XMS_ITS | Encounter Summary ---
Author Organization [facility] [place] [address] Care Team Providers Care Hand Expansion Envelope Maker Name Role Phone Ángel Bingham MD Primary Care Provider [phone] Reason for Visit * Reason Comments Ventricular Arrhythmia Encounter Details Date Type Department Care Team (Late st Contact Info) Description 01/14/2016 1:00 PM EDT Office Visit Cardiology at [address] [phone] Catherine Roberts RN Sustained VT (ventricular tachycardia) [...] duration. Patient remains resistant to begin anticoagulation. Plastics Worker: Kit Self MD PCP: ÁNGEL BINGHAM MD Device Info: New Atrial electrode: Guidant Dextrus Model# 4126-53 cm Serial# [id number], implanted 04/17/2014 ?? Bipolar, steroid-tipped, active-fixation IS-1 lead ?? Access: Axillary vein ?? Location Right atrial appendage Old Ventricular electrode: [employer] [place] Model# 0292 Serial# [id number] ?? Bipolar, steroid-tipped, active-fixation DF-4 lead ?? Access: Axillary vein ?? Location: Right ventricular apex ?? Implanted: 01/10/2014 Pulse generator: Well[employer] Incepta Model# E162 Serial# [id number] ?? DDDR ICD ?? Location: Subcutaneous Tachy [...] histograms: Reasonable distribution Pacing percentages: AP 31%; DRAFTER (CAD) ELECTRICAL <1% Mode switch episodes: 28 events in [...] __ Andres Sosa MD Cardiac Electrophysiology Services [facility] documented in this encounter Plan of Treatment Upcoming Encounters Date Type Department Care Team (Late st Contact Info) Description 06/15/2024 10:00 AM EST Hospital Encounter Non-Invasive [place] [address] Arrived documented as of this encounter Visit Diagnoses Diagnosis Sustained VT (ventricular tachycardia) Paroxysmal ventricular tachycardia documented in this encounter Care Teams Hand Expansion Envelope Maker Relationship Specialty Start Date End Date Ángel Bingham MD [facility] 1 [facility] [place] [address] PCP - General 01/31/14 09/01/16 documented as of this encounter
--- OUTSIDE RECORDS SUMMARY | 2024-04-19 15:29 | XMS_ITS | Encounter Summary ---
[place] [address] Care Team Providers Care Tacker Off Name Role Phone Ángel Bingham MD Primary Care Provider Encounter Details Date Type Department Care Team (Late st Contact Info) Description 06/04/2015 Orders Only Cardiology at [address] [address] Social History Tobacco Use Types Packs/Day Years [...] AM EST Hospital Encounter Non[place] [address] Arrived documented as of this encounter Procedures Procedure Name Priority Date/Time Associated Diagnosis Comments CARDIAC DEVICE CHECK - REMOTE PATIENT INITIATED Routine 06/04/2015 5:00 PM EST documented in this encounter Results * Cardiac device check - Remote Patient Initiated (06/04/2015 5:00 PM EST) Date Time Interrogation Session [id number] IDCO Type Interrogation Session Remote Patient Initiated IDCO Clinic Name [facility] IDCO Battery Date Time of Measurements [id number] IDCO Battery Status Beginning of Service IDCO Battery Remaining Longevity 126 mo IDCO Battery Remaining Percentage 100 % IDCO Capacitor Last Charge Date Time [id number] IDCO Capacitor Charge Time 10.1 s IDCO Capacitor Charge Type Reformation IDCO Capacitor Last Charge Date Time [id number] IDCO Capacitor Charge Time 3.8 s IDCO Capacitor Charge Energy 21 J IDCO Capacitor Charge Type Shock IDCO Episode Identifier APM-13 IDCO Episode Date Time [id number] IDCO Episode Type Category Periodic EGM IDCO Episode Vendor Type Category APMRT IDCO Episode Detection And Therapy Details Presenting EGM [id number] Episode Date Time [id number] IDCO Episode Type Category Other IDCO Episode Vendor Type Category XANDER IDCO Episode Detection Interval Ventricular 1,091 ms IDCO Episode Duration 62 s IDCO Episode Detection And Therapy Details [id number] Episode Date Time [id number] IDCO Episode Type Category Other IDCO Episode Vendor Type Category XANDER IDCO Episode Detection Interval Ventricular 870 ms IDCO Episode Duration 56 s IDCO Episode Detection And Therapy Details IDCO Episode Identifier WY- IDCO Episode Date Time [id number] IDCO Episode Type Category Other IDCO Episode Vendor Type Category XANDER IDCO Episode Detection Interval Ventricular 1,071 ms IDCO Episode Duration 62 s IDCO Episode Detection And Therapy Details IDCO Episode Identifier WYQ- IDCO Episode Date Time [id number] IDCO Episode Type Category Other IDCO Episode Vendor Type Category XANDER IDCO Episode Detection Interval Ventricular 923 ms IDCO Episode Duration 49 s IDCO Episode Detection And Therapy Details IDCO Episode Identifier WY IDCO Episode Date Time [id number] IDCO Episode Type Category Other IDCO Episode Vendor Type Category XANDER IDCO Episode Detection Interval Ventricular 896 ms IDCO Episode Duration 53 s IDCO Episode Detection And Therapy Details IDCO Episode Identifier WYQ- IDCO Episode Date Time [id number] IDCO Episode Type Category Other IDCO Episode Vendor Type Category XANDER IDCO Episode Detection Interval Ventricular 1,304 ms IDCO Episode Duration 63 s IDCO Episode Detection And Therapy Details RYMIQ IDCO Episode Identifier [id number] IDCO Episode Date Time IDCO Episode Type Category Other IDCO Episode Vendor Type Category XANDER IDCO Episode Detection Interval Ventricular 1,017 ms IDCO Episode Duration 59 s IDCO Episode Detection And Therapy Details RYMIQ IDCO Episode Identifier [id number] IDCO Episode Date Time IDCO Episode Type [...] IDCO Episode Identifier IDCO Episode Date Time [id number] IDCO Episode Type Category VT IDCO Episode Vendor Type Category NSVT IDCO Episode Type Induced Flag NO IDCO Episode Detection Interval Ventricular 353 ms IDCO Episode Duration 6 s IDCO Episode Detection And Therapy Details NonSustV IDCO Episode Identifier IDCO Episode Date Time [id number] IDCO Episode Type Category VT IDCO Episode Vendor Type Category NSVT IDCO Episode Type Induced Flag NO IDCO Episode Detection Interval Ventricular 373 ms IDCO Episode Duration 6 s IDCO Episode Detection And Therapy Details NonSustV IDCO Episode Identifier [id number] IDCO Episode Date Time [id number] IDCO Episode Type Category Other IDCO Episode Vendor Type Category XANDER IDCO Episode Detection Interval Ventricular 909 ms IDCO Episode Duration 55 s IDCO Episode Detection And Therapy Details RYTHMIQ IDCO Episode Identifier - IDCO Episode Date Time [id number] IDCO Episode Type Category VT IDCO Episode Vendor Type Category NSVT IDCO Episode Type Induced Flag NO IDCO Episode Detection Interval Ventricular 330 ms IDCO Episode Duration 11 s IDCO Episode Detection And Therapy Details NonSustV IDCO Episode Identifier ATR-32 IDCO Episode Date Time [id number] IDCO Episode Type Category AT/AF IDCO Episode Vendor Type Category ATR IDCO Episode Detection Interval Atrial 276 ms IDCO Episode Duration 25 s IDCO Episode Detection And Therapy Details ATR IDCO Episode Identifier ATR-31 IDCO Episode Date Time [id number] IDCO Episode Type Category AT/AF IDCO Episode Vendor Type Category ATR IDCO Episode Detection Interval Atrial 284 ms IDCO Episode Duration 23 s IDCO Episode Detection And Therapy Details ATR IDCO Episode Identifier V-11 IDCO Episode Date Time [id number] IDCO Episode Type Category VT IDCO Episode Vendor Type Category NSVT IDCO Episode Type Induced Flag NO IDCO Episode Detection Interval Ventricular 375 ms IDCO Episode Duration 17 s IDCO Episode Detection And Therapy Details NonSustV IDCO Episode Identifier V-10 IDCO Episode Date Time [id number] IDCO Episode Type Category VT IDCO Episode [...] E162 IDCO Implantable Pulse Generator Serial Number [id number] IDCO Implantable Pulse Generator Computer Forensics Technician [place] [employer] IDCO Implantable Pulse Generator Implant Date 20140110 IDCO Implantable Lead Model 4136 IDCO Implantable Lead Serial Number [id number] IDCO Implantable Lead Computer Forensics Technician Guidant IDCO Implantable Lead Implant Date 20130421 IDCO Implantable Lead Polarity Type Bipolar Lead IDCO Implantable Lead Location Right Atrium IDCO Implantable Lead Model 0292 IDCO Implantable Lead Serial Number [id number] IDCO Implantable Lead Computer Forensics Technician [place] [employer] IDCO Implantable Lead Implant Date IDCO [...] IDCO Lead Channel Pacing Threshold Measurement Method Fruit And Vegetable Packer Manual IDCO Lead Channel Pacing Threshold Polarity [...] IDCO Lead Channel Pacing Threshold Measurement Method Fruit And Vegetable Packer Manual IDCO Lead Channel Pacing Threshold Polarity [...] on filedocumented in this encounter Care Teams Tacker Off Relationship Specialty Start Date End Date Ángel Bingham MD [facility] [address] [place] [address] PCP - General 01/31/14 09/01/16 documented as of this encounter
--- OUTSIDE RECORDS SUMMARY | 2024-04-19 15:29 | XMS_ITS | Encounter Summary ---
[place] [address] Care Team Providers Care Quality Improvement Consultant Name Role Phone Ángel Bingham MD Primary Care Provider Encounter Details Date Type Department Care Team (Late st Contact Info) Description 08/17/2014 Orders Only Cardiology at [address] [address] Social History Tobacco Use Types Packs/Day Years [...] AM EST Hospital Encounter Non-In[place] [address] Arrived documented as of this encounter Procedures Procedure Name Priority Date/Time Associated Diagnosis Comments CARDIAC DEVICE CHECK - REMOTE PATIENT INITIATED Routine 08/17/2014 6:30 AM EDT documented in this encounter Results * (ABNORMAL) Cardiac device check - Remote Patient Initiated (08/17/2014 6:30 AM EDT) Date Time Interrogation Session [id number] IDCO Type Interrogation Session Remote Patient Initiated IDCO Clinic Name [facility] IDCO Battery Date Time of Measurements [id number] IDCO Battery Status Beginning of Service IDCO Battery Remaining Longevity 126 mo IDCO Battery Remaining Percentage 100 % IDCO Capacitor Last Charge Date Time [id number] IDCO Capacitor Charge Time 9.9 s IDCO Capacitor Charge Type Reformation IDCO Episode Identifier APM-6 IDCO Episode Date Time [id number] IDCO Episode Type Category Periodic EGM IDCO Episode Vendor Type Category APMRT IDCO Episode Detection And Therapy Details Presenting EGM IDCO Episode Identifier [id number] IDCO Episode Date Time [id number] IDCO Episode Type Category Other IDCO Episode Vendor Type Category XANDER IDCO Episode Detection Interval Ventricular 938 ms IDCO Episode Duration 56 s IDCO Episode Detection And Therapy Details IDCO Episode Identifier IDCO Episode Date Time [id number] IDCO Episode Type Category Other IDCO Episode Vendor Type Category XANDER IDCO Episode Detection Interval Ventricular 923 ms IDCO Episode Duration 56 s IDCO Episode Detection And Therapy Details IDCO Episode Identifier IDCO Episode Date Time [id number] IDCO Episode Type Category Other IDCO Episode Vendor Type Category XANDER IDCO Episode Detection Interval Ventricular 923 ms IDCO Episode Duration 55 s IDCO Episode Detection And Therapy Details IDCO Episode Identifier IDCO Episode Date Time [id number] IDCO Episode Type Category Other IDCO Episode Vendor Type Category XANDER IDCO Episode Detection Interval Ventricular 1,000 ms IDCO Episode Duration 59 s IDCO Episode Detection And Therapy Details IDCO Episode Identifier IDCO Episode Date Time [id number] IDCO Episode Type Category Other IDCO Episode Vendor Type Category XANDER IDCO Episode Detection Interval Ventricular 1,071 ms IDCO Episode Duration 56 s IDCO Episode Detection And Therapy Details IDCO Episode Identifier IDCO Episode Date Time [id number] IDCO Episode Type Category Other IDCO Episode Vendor Type Category XANDER IDCO Episode Detection Interval Ventricular 938 ms IDCO Episode Duration 53 s IDCO Episode Detection And Therapy Details IDCO Episode Identifier SC IDCO Episode Date Time IDCO Episode Type Category Other IDCO Episode Vendor Type Category XANDER IDCO Episode Detection Interval Ventricular 938 ms IDCO Episode Duration 54 s IDCO Episode Detection And Therapy Details [facility] IDCO Episode Identifier [id number] IDCO Episode Date Time IDCO Episode Type Category Other IDCO Episode Vendor Type Category XANDER IDCO Episode Detection Interval Ventricular 923 ms IDCO Episode Duration 56 s IDCO Episode Detection And Therapy Details [facility] IDCO Episode Identifier [facility] [id number] IDCO Episode Date Time IDCO Episode Type Category Other IDCO Episode Vendor Type Category XANDER IDCO Episode Detection Interval Ventricular 938 ms IDCO Episode Duration 56 s IDCO Episode Detection And Therapy Details [facility] IDCO Episode Identifier [facility]-9003 IDCO Episode Date Time IDCO Episode Type [...] Episode Identifier V-4 IDCO Episode Date Time [id number] IDCO Episode Type Category VT IDCO Episode Vendor Type Category NSVT IDCO Episode Type Induced Flag NO IDCO Episode Detection Interval Ventricular 317 ms IDCO Episode Duration 6 s IDCO Episode Detection And Therapy Details NonSustV IDCO Episode Identifier ATR-13 IDCO Episode Date Time [id number] IDCO Episode Type Category AT/AF IDCO Episode Vendor Type Category ATR IDCO Episode Detection Interval Atrial 923 ms IDCO Episode Duration 1 s IDCO Episode Detection And Therapy Details ATR IDCO Episode Identifier ATR-12 IDCO Episode Date Time [id number] IDCO Episode Type Category AT/AF IDCO Episode Vendor Type Category ATR IDCO Episode Detection Interval Atrial 258 ms IDCO Episode Duration 16,842 s IDCO Episode Detection And Therapy Details ATR IDCO Episode Identifier ATR-11 IDCO Episode Date Time [id number] IDCO Episode Type Category AT/AF IDCO Episode [...] E162 IDCO Implantable Pulse Generator Serial Number [id number] IDCO Implantable Pulse Generator Director Data [place] [employer] IDCO Implantable Pulse Generator Implant Date 20140110 IDCO Implantable Lead Model 4136 IDCO Implantable Lead Serial Number [id number] IDCO Implantable Lead Director Data Guidant IDCO Implantable Lead Implant Date 20130421 IDCO Implantable Lead Polarity Type Bipolar Lead IDCO Implantable Lead Location Right Atrium IDCO Implantable Lead Model 0292 IDCO Implantable Lead Serial Number [id number] IDCO Implantable Lead Director Data [place] [employer] IDCO Implantable Lead Implant Date IDCO [...] IDCO Lead Channel Pacing Threshold Measurement Method Program Manager Slp Manual IDCO Lead Channel Pacing Threshold Polarity [...] IDCO Lead Channel Pacing Threshold Measurement Method Program Manager Slp Manual IDCO Lead Channel Pacing Threshold Polarity [...] on filedocumented in this encounter Care Teams Quality Improvement Consultant Relationship Specialty Start Date End Date Ángel Bingham MD [facility] [address] [place] [address] PCP - General 01/31/14 09/01/16 documented as of this encounter
--- OUTSIDE RECORDS SUMMARY | 2024-04-19 15:29 | XMS_ITS | Encounter Summary ---
Author Organization [facility] [place] [address] Care Team Providers Care Auto Garage Attendant Name Role Phone Ángel Bingham MD Primary Care Provider [phone] Reason for Visit * Reason Comments Cardiomyopathy ICD check Encounter Details Date Type Department Care Team (Late st Contact Info) Description 07/18/2014 10:00 AM EDT Office Visit Cardiology at [address] [phone] Trena Carlisle RN Sustained [place] (ventricular tachycardia) [...] Dr. Self in clinic today as well. Caul Puller: Kit Self MD PCP: ÁNGEL BINGHAM MD Final Parameters: New Atrial electrode: Guidant Dextrus Model# 4126-53 cm Serial# [id number] ?? Bipolar, steroid-tipped, active-fixation IS-1 lead ?? [...] at 10 V: No Old Ventricular electrode: [place] [employer] [place] Model# 0292 Serial# [id number] ?? Bipolar, steroid-tipped, active-fixation DF-4 lead ?? [...] Atrial electrode: Guidant Dextrus Model# 4136 Serial# [id number] ?? Bipolar, steroid-tipped, active-fixation IS-1 lead ?? Access: Axillary vein ?? Location Removed 04/17/2014 ?? Implanted: 01/10/2014 Pulse generator: [employer] Incepta Model# E162 Serial# [id number] ?? DDDR ICD ?? Location: Subcutaneous Tachy [...] histograms: Reasonable distribution Pacing percentages: AP 10%; HOT METAL CHARGER <1% Mode switch episodes: 9 episodes for 1% burden since lead revision on 04/17/14. 7 lasting for <1minute and 2 lasting for 1 hour-<24 hours. EGMs and rates suggest Atrial flutter with ventricular rates in the 80's. Patient does not recall these events and states the long lasting episodes most likely occurred while he was in [place] for his sisters and was under stress. Monitored events: 1 episode on 05/15/14. EGM suggests brief NSVT for 4 beats duration Treated events: None Battery voltage: ANN, 10.5 years remaining Charge time: 9.9 sec 07/11/14 Chest x-ray: ok day post atrial lead revision (patient states he had another xray done at [facility] while he was there per his request recently and they said it looked good) Incision assessment: L chest no issues I have reviewed the programming printouts, and the device is functioning normally. Impression: EGM evidence of atrial flutter and fib (21.5 minute episode) and non-EGM recording of episodes > 1 hour but < 24 hours. He's on ASA/Plavix, post JON 05/03. [id number] score is 4 (age, DM, HTN, CAD). Plan: Latitude 3 mos, RTC 6 mos. Consider anticoagulation if AT/AF continues. Reprogramming: atrial pacing output decreased based upon threshold obtained in clinic today. Edy Berry MD documented in this encounter Plan of Treatment Upcoming Encounters Date Type Department Care Team (Late st Contact Info) Description 06/15/2024 10:00 AM EST Hospital Encounter [place] [address] Arrived documented as of this encounter Visit Diagnoses Diagnosis Sustained [place] (ventricular tachycardia) Paroxysmal ventricular tachycardia documented in this encounter Care Teams Auto Garage Attendant Relationship Specialty Start Date End Date Ángel Bingham MD [facility] [address] [place] [address] PCP - General 01/31/14 09/01/16 documented as of this encounter
--- OUTSIDE RECORDS SUMMARY | 2024-04-19 15:29 | XMS_ITS | Encounter Summary ---
[place] [address] Care Team Providers Care Dishwasher Busser Name Role Phone Ángel Bingham MD Primary Care Provider [phone] Encounter Details Date Type Department Care Team (Late st Contact Info) Description 03/29/2015 External Results Cardiology at [address] [phone] Ángel Bingham MD [facility] [address] [place] [address] Social History Tobacco Use Types Packs/Day Years [...] AM EST Hospital Encounter Non-Invasive [place] [address] Arrived documented as of this encounter Procedures Procedure Name Priority Date/Time Associated Diagnosis Comments EP DEVICE SCAN Routine 01/16/2015 documented in this encounter Results * Scan Doc: EP Device (01/16/2015) Anatomical Region Laterality Modality Other Ángel Bingham MD MEDIA MGR SCAN EXT O RDR/RSLT documented in this encounter Visit Diagnoses Not on filedocumented in this encounter Care Teams Dishwasher Busser Relationship Specialty Start Date End Date Ángel Bingham MD [facility] [address] [place] [address] PCP - General 01/31/14 09/01/16 documented as of this encounter
--- OUTSIDE RECORDS SUMMARY | 2024-04-19 15:29 | XMS_ITS | Encounter Summary ---
[place] [address] Care Team Providers Care Structural Steel Trades Worker Name Role Phone Ángel Bingham MD Primary Care Provider [phone] Reason for Visit * Reason Onset Date Comments Medication Management 2015 Encounter Details Date Type Department Care Team (Late st Contact Info) Description 2015 Telephone Cardiology at [address] [phone] Rosanna Morrow, family helper Management Social History Tobacco Use Types Packs/Day [...] AM EST Hospital Encounter [place] [address] Arrived documented as of this encounter Visit Diagnoses Not on filedocumented in this encounter Care Teams Structural Steel Trades Worker Relationship Specialty Start Date End Date Ángel Bingham MD [facility] [address] [place] [address] PCP - General 01/31/14 09/01/16 documented as of this encounter
--- OUTSIDE RECORDS SUMMARY | 2024-04-19 15:29 | XMS_ITS | Encounter Summary ---
Author Organization [facility] [place] [address] Care Team Providers Care Electrotype Caster Name Role Phone Ángel Bingham MD Primary Care Provider [phone] Encounter Details Date Type Department Care Team (Late st Contact Info) Description 07/18/2014 Orders Only Cardiology at [address] [phone] Social History Tobacco Use Types Packs/Day Years [...] AM EST Hospital Encounter Non-[place] [address] Arrived documented as of this encounter Procedures Procedure Name Priority Date/Time Associated Diagnosis Comments CARDIAC DEVICE CHECK - IN CLINIC Routine 07/18/2014 10:00 AM EDT documented in this encounter Results * Cardiac device check - In Clinic (07/18/2014 10:00 AM EDT) Date Time Interrogation Session IDCO Type Interrogation Session In Clinic IDCO Clinic Name [facility] [place] [place] IDCO Battery Date Time of Measurements [id number] IDCO Battery Status Beginning of Service IDCO Battery Remaining Longevity 126 mo IDCO Battery Remaining Percentage 100 % IDCO Capacitor Last Charge Date Time IDCO Capacitor Charge Time 9.9 s IDCO Capacitor Charge Type Reformation IDCO Capacitor Last Charge Date Time [id number] IDCO Capacitor Charge Time 3.8 s IDCO [...] Setting AT Mode Switch Mode VDIR IDCO Alabro Setting AT Mode Switch Rate 170 {beats}/ [...] E162 IDCO Implantable Pulse Generator Serial Number [id number] IDCO Implantable Pulse Generator Home Care Manager [place] [employer] IDCO Implantable Pulse Generator Implant Date 20140110 IDCO Implantable Lead Model 4136 IDCO Implantable Lead Serial Number [id number] IDCO Implantable Lead Home Care Manager Guiddelio IDCO Implantable Lead Implant Date 20130421 IDCO Implantable Lead Polarity Type Bipolar Lead IDCO Implantable Lead Location Right Atrium IDCO Implantable Lead Model 0292 IDCO Implantable Lead Serial Number [id number] IDCO Implantable Lead Home Care Manager [place] [employer] IDCO Implantable Lead Implant Date IDCO Implantable Lead Location Right Ventricle IDCO Lead Channel Measurements Date and Time Start 20140718 IDCO Lead Channel Sensing Intrinsic Amplitude Mean 5.2 mV IDCO Lead Channel Sensing Polarity Bipolar IDCO Lead Channel Pacing Threshold Amplitude 0.6 V IDCO Lead Channel Pacing Threshold Pulse Width 0.5 ms IDCO Lead Channel Pacing Threshold Measurement Method Senior Qa Automation Engineer Manual IDCO Lead Channel Pacing Threshold Polarity [...] Lead Channel Pacing Threshold Measurement Method Senior Qa Automation Engineer Manual IDCO Lead Channel Pacing Threshold Polarity [...] Albaro Statistic Date Time Start 20140418 IDCO Labaro Statistic Date Time End 20140718 IDCO Albaro Statistic RA Percent Paced 10 % IDCO Albaro Statistic RV Percent Paced 1 % IDCO Atrial Tachy Statistic Date Time Start 20140419 IDCO Atrial Tachy Statistic Date Time End 20140717 IDCO Atrial Tachy Statistic AT/AF [place] Percent 1 % IDCO Therapy Statistic Recent [...] on filedocumented in this encounter Care Teams Electrotype Caster Relationship Specialty Start Date End Date Ángel Bingham MD [facility] [address] [place] [address] PCP - General 01/31/14 09/01/16 documented as of this encounter
--- OUTSIDE RECORDS SUMMARY | 2024-04-19 15:29 | XMS_ITS | Encounter Summary ---
Author Organization [facility] Address [facility] [place] [address] Care Team Providers Care Consumer Relations Complaint Clerk Name Role Phone Ángel Bingham MD Primary Care Provider [phone] Encounter Details Date Type Department Care Team (Late st Contact Info) Description 04/25/2015 Telephone Cardiology at [address] [phone] Kasandra Bellamy RN Social History Tobacco Use [...] agreed with plan Sent 90-day supply to [facility]. * Telephone Encounter - Kasandra Bellamy RN [...] AM EST Hospital Encounter Non-[place] [address] Arrived documented as of this encounter Visit Diagnoses Not on filedocumented in this encounter Care Teams Consumer Relations Complaint Clerk Relationship Specialty Start Date End Date Ángel Bingham MD [facility] [address] [place] [address] [place] [address] PCP - General 01/31/14 09/01/16 documented as of this encounter
--- OUTSIDE RECORDS SUMMARY | 2024-04-19 15:29 | XMS_ITS | Encounter Summary ---
Author Organization [facility] [place] [address] Care Team Providers Care Correctional Supervisor Name Role Phone Ángel Bingham MD Primary Care Provider [phone] Encounter Details Date Type Department Care Team (Late st Contact Info) Description 01/14/2015 Orders Only Cardiology at [address] [address] Social History Tobacco Use Types Packs/Day Years [...] AM EST Hospital Encounter Non-[place] [address] Arrived documented as of this encounter Procedures Procedure Name Priority Date/Time Associated Diagnosis Comments CARDIAC DEVICE CHECK - REMOTE PATIENT INITIATED Routine 01/14/2015 10:19 PM EDT documented in this encounter Results * Cardiac device check - Remote Patient Initiated (01/14/2015 10:19 PM EDT) Date Time Interrogation Session [id number] IDCO Type Interrogation Session Remote Patient Initiated IDCO Clinic Name [facility] IDCO Battery Date Time of Measurements [id number] IDCO Battery Status Beginning of Service IDCO Battery Remaining Longevity 126 mo IDCO Battery Remaining Percentage 100 % IDCO Capacitor Last Charge Date Time IDCO Capacitor Charge Time 10.0 s IDCO Capacitor Charge Type Reformation IDCO Episode Identifier APM-10 IDCO Episode Date Time [id number] IDCO Episode Type Category Periodic EGM IDCO Episode Vendor Type Category APMRT IDCO Episode Detection And Therapy Details Presenting EGM [facility] Episode Date Time [id number] IDCO Episode Type Category Other IDCO Episode Vendor Type Category XANDER IDCO Episode Detection Interval Ventricular 1,364 ms IDCO Episode Duration 63 s IDCO Episode Detection And Therapy Details [facility] IDCO Episode Identifier IDQ-89 IDCO Episode Date Time [id number] IDCO Episode Type Category Other IDCO Episode Vendor Type Category XANDER IDCO Episode Detection Interval Ventricular 1,071 ms IDCO Episode Duration 62 s IDCO Episode Detection And Therapy Details [facility] IDCO Episode Identifier [facility]-88 IDCO Episode Date Time [id number] IDCO Episode Type Category Other IDCO Episode Vendor Type Category XANDER IDCO Episode Detection Interval Ventricular 1,071 ms IDCO Episode Duration 63 s IDCO Episode Detection And Therapy Details [facility] IDCO Episode Identifier IDQ-87 IDCO Episode Date Time [id number] IDCO Episode Type Category Other IDCO Episode Vendor Type Category XANDER IDCO Episode Detection Interval Ventricular 1,071 ms IDCO Episode Duration 64 s IDCO Episode Detection And Therapy Details [facility] IDCO Episode Identifier ID-86 IDCO Episode Date Time [id number] IDCO Episode Type Category Other IDCO Episode Vendor Type Category XANDER IDCO Episode Detection Interval Ventricular 1,364 ms IDCO Episode Duration 64 s IDCO Episode Detection And Therapy Details [facility] IDCO Episode Identifier ATR-27 IDCO Episode Date Time [id number] IDCO Episode Type Category AT/AF IDCO Episode Vendor Type Category ATR IDCO Episode Detection Interval Atrial 270 ms IDCO Episode Duration 18 s IDCO Episode Detection And Therapy Details [facility] Episode Date Time IDCO Episode Type Category Other IDCO Episode Vendor Type Category XANDER IDCO Episode Detection Interval Ventricular 1,364 ms IDCO Episode Duration 117 s IDCO Episode Detection And Therapy Details [facility] IDCO Episode Identifier [facility] IDCO Episode Date Time IDCO Episode Type Category Other IDCO Episode Vendor Type Category XANDER IDCO Episode Detection Interval Ventricular 1,333 ms IDCO Episode Duration 63 s IDCO Episode Detection And Therapy Details [facility] IDCO Episode Identifier [facility] IDCO Episode Date Time IDCO Episode Type Category Other IDCO Episode Vendor Type Category XANDER IDCO Episode Detection Interval Ventricular 882 ms IDCO Episode Duration 56 s IDCO Episode Detection And Therapy Details [facility] IDCO Episode Identifier [facility] IDCO Episode Date Time IDCO Episode Type Category Other IDCO Episode Vendor Type Category XANDER IDCO Episode Detection Interval Ventricular 896 ms IDCO Episode Duration 52 s IDCO Episode Detection And Therapy Details [facility] IDCO Episode Identifier [facility] IDCO Episode Date Time IDCO Episode Type Category Other IDCO Episode Vendor Type Category XANDER IDCO Episode Detection Interval Ventricular 1,053 ms IDCO Episode Duration 49 s IDCO Episode Detection And Therapy Details IDCO Episode Identifier ATR- IDCO Episode Date Time [id number] IDCO Episode Type Category AT/AF IDCO Episode Vendor Type Category ATR IDCO Episode Detection Interval Atrial 845 ms IDCO Episode Duration 1 s IDCO Episode Detection And Therapy Details ATR IDCO Episode Identifier ATR- IDCO Episode Date Time [id number] IDCO Episode Type Category AT/AF IDCO Episode Vendor Type Category ATR IDCO Episode Detection Interval Atrial 566 ms IDCO Episode Duration 5 s IDCO Episode Detection And Therapy Details ATR IDCO Episode Identifier ATR- IDCO Episode Date Time [id number] IDCO Episode Type Category AT/AF IDCO Episode Vendor Type Category ATR IDCO Episode Detection Interval Atrial 260 ms IDCO Episode Duration 321 s IDCO Episode Detection And Therapy Details ATR IDCO Episode Identifier ATR- IDCO Episode Date Time [id number] IDCO Episode Type Category AT/AF IDCO Episode [...] Episode Identifier ATR-21 IDCO Episode Date Time [id number] IDCO Episode Type Category AT/AF IDCO Episode Vendor Type Category ATR IDCO Episode Detection Interval Atrial 833 ms IDCO Episode Duration 1 s IDCO Episode Detection And Therapy Details ATR IDCO Episode Identifier ATR-20 IDCO Episode Date Time [id number] IDCO Episode Type Category AT/AF IDCO Episode Vendor Type Category ATR IDCO Episode Detection Interval Atrial 268 ms IDCO Episode Duration 37 s IDCO Episode Detection And Therapy Details ATR IDCO Episode Identifier ATR-19 IDCO Episode Date Time [id number] IDCO Episode Type Category AT/AF IDCO Episode Vendor Type Category ATR IDCO Episode Detection Interval Atrial 253 ms IDCO Episode Duration 149 s IDCO Episode Detection And Therapy Details ATR IDCO Episode Identifier ATR-18 IDCO Episode Date Time [id number] IDCO Episode Type Category AT/AF IDCO Episode [...] E162 IDCO Implantable Pulse Generator Serial Number [id number] IDCO Implantable Pulse Generator Account Information Clerk [place] [employer] IDCO Implantable Pulse Generator Implant Date 20140110 IDCO Implantable Lead Model 4136 IDCO Implantable Lead Serial Number [id number] IDCO Implantable Lead Account Information Clerk Guidant IDCO Implantable Lead Implant Date 20130421 IDCO Implantable Lead Polarity Type Bipolar Lead IDCO Implantable Lead Location Right Atrium IDCO Implantable Lead Model 0292 IDCO Implantable Lead Serial Number [id number] IDCO Implantable Lead Account Information Clerk [employer] [employer] IDCO Implantable Lead Implant Date IDCO [...] IDCO Lead Channel Pacing Threshold Measurement Method Material Control Specialist Manual IDCO Lead Channel Pacing Threshold [...] IDCO Lead Channel Pacing Threshold Measurement Method Material Control Specialist Manual IDCO Lead Channel Pacing Threshold [...] on filedocumented in this encounter Care Teams Correctional Supervisor Relationship Specialty Start Date End Date Ángel Bingham MD [facility] [address] [place] [address] PCP - General 01/31/14 09/01/16 documented as of this encounter
--- OUTSIDE RECORDS SUMMARY | 2024-04-19 15:29 | XMS_ITS | Encounter Summary ---
Author Organization [facility] [place] [address] Care Team Providers Care Boiler House Inspector Name Role Phone Ángel Bingham MD Primary Care Provider [phone] Encounter Details Date Type Department Care Team (Late st Contact Info) Description 02/05/2015 Orders Only Cardiology at [address] [address] Social History Tobacco Use Types Packs/Day Years [...] AM EST Hospital Encounter [place] [address] Arrived documented as of this encounter Procedures Procedure Name Priority Date/Time Associated Diagnosis Comments CARDIAC DEVICE CHECK - REMOTE PATIENT INITIATED Routine 02/05/2015 3:28 AM EDT documented in this encounter Results * Cardiac device check - Remote Patient Initiated (02/05/2015 3:28 AM EDT) Date Time Interrogation Session [id number] IDCO Type Interrogation Session Remote Patient Initiated IDCO Clinic Name [facility] IDCO Battery Date Time of Measurements [id number] IDCO Battery Status Beginning of Service IDCO Battery Remaining Longevity 126 mo IDCO Battery Remaining Percentage 100 % IDCO Capacitor Last Charge Date Time IDCO Capacitor Charge Time 10.0 s IDCO Capacitor Charge Type Reformation IDCO Episode Identifier APM-12 IDCO Episode Date Time [id number] IDCO Episode Type Category Periodic EGM IDCO Episode Vendor Type Category APMRT IDCO Episode Detection And Therapy Details Presenting EGM IDCO Episode Identifier [id number] IDCO Episode Date Time [id number] IDCO Episode Type Category Other IDCO Episode Vendor Type Category XANDER IDCO Episode Detection Interval Ventricular 1,132 ms IDCO Episode Duration 63 s IDCO Episode Detection And Therapy Details IDCO Episode Identifier [facility]-42 IDCO Episode Date Time [id number] IDCO Episode Type Category Other IDCO Episode Vendor Type Category XANDER IDCO Episode Detection Interval Ventricular 1,154 ms IDCO Episode Duration 63 s IDCO Episode Detection And Therapy Details IDCO Episode Identifier [facility]-03 IDCO Episode Date Time [id number] IDCO Episode Type Category Other IDCO Episode Vendor Type Category XANDER IDCO Episode Detection Interval Ventricular 1,132 ms IDCO Episode Duration 63 s IDCO Episode Detection And Therapy Details IDCO Episode Identifier MS-43 IDCO Episode Date Time [id number] IDCO Episode Type Category Other IDCO Episode Vendor Type Category XANDER IDCO Episode Detection Interval Ventricular 1,091 ms IDCO Episode Duration 63 s IDCO Episode Detection And Therapy Details IDCO Episode Identifier MS-22 IDCO Episode Date Time [id number] IDCO Episode Type Category Other IDCO Episode Vendor Type Category XANDER IDCO Episode Detection Interval Ventricular 1,304 ms IDCO Episode Duration 63 s IDCO Episode Detection And Therapy Details IDCO Episode Identifier MS-55 IDCO Episode Date Time [id number] IDCO Episode Type Category Other IDCO Episode Vendor Type Category XANDER IDCO Episode Detection Interval Ventricular 1,304 ms IDCO Episode Duration 64 s IDCO Episode Detection And Therapy Details IDCO [facility] IDCO Episode Date Time [id number] IDCO Episode Type Category Other IDCO Episode Vendor Type Category XANDER IDCO Episode Detection Interval Ventricular 1,304 ms IDCO Episode Duration 63 s IDCO Episode Detection And Therapy Details [facility] IDCO Episode Identifier [facility]-9336 IDCO Episode Date Time [id number] IDCO Episode Type Category Other IDCO Episode Vendor Type Category XANDER IDCO Episode Detection Interval Ventricular 1,304 ms IDCO Episode Duration 63 s IDCO Episode Detection And Therapy Details [facility] IDCO Episode Identifier [facility]-9335 IDCO Episode Date Time [id number] IDCO Episode Type Category Other IDCO Episode Vendor Type Category XANDER IDCO Episode Detection Interval Ventricular 1,304 ms IDCO Episode Duration 63 s IDCO Episode Detection And Therapy Details [facility] IDCO Episode Identifier [facility]-34 IDCO Episode Date Time [id number] IDCO Episode Type Category Other IDCO Episode Vendor Type Category XANDER IDCO Episode Detection Interval Ventricular 1,304 ms IDCO Episode Duration 64 s IDCO Episode Detection And Therapy Details [facility] IDCO Episode Identifier ATR-28 IDCO Episode Date Time [id number] IDCO Episode Type Category AT/AF IDCO Episode [...] E162 IDCO Implantable Pulse Generator Serial Number [id number] IDCO Implantable Pulse Generator Non Emergency Services Ambulance Driver [place] [employer] IDCO Implantable Pulse Generator Implant Date 20140110 IDCO Implantable Lead Model 4136 IDCO Implantable Lead Serial Number [id number] IDCO Implantable Lead Non Emergency Services Ambulance Driver Guidant IDCO Implantable Lead Implant Date 20130421 IDCO Implantable Lead Polarity Type Bipolar Lead IDCO Implantable Lead Location Right Atrium IDCO Implantable Lead Model 0292 IDCO Implantable Lead Serial Number [id number] IDCO Implantable Lead Non Emergency Services Ambulance Driver [place] [employer] IDCO Implantable Lead Implant Date IDCO [...] IDCO Lead Channel Pacing Threshold Measurement Method Quality Measurement Specialist Manual IDCO Lead Channel Pacing Threshold [...] IDCO Lead Channel Pacing Threshold Measurement Method Quality Measurement Specialist Manual IDCO Lead Channel Pacing Threshold [...] filedocumented in this encounter Care Teams Boiler House Inspector Relationship Specialty Start Date End Date Ángel Bingham MD [facility] [address] [place] [address] PCP - General 01/31/14 09/01/16 documented as of this encounter
--- OUTSIDE RECORDS SUMMARY | 2024-04-19 15:29 | XMS_ITS | Encounter Summary ---
[place] [address] Care Team Providers Care Melting Supervisor Name Role Phone Ángel Bingham MD Primary Care Provider [phone] Encounter Details Date Type Department Care Team (Late st Contact Info) Description 07/18/2014 Orders Only Cardiology at [address] [address] Social History Tobacco Use Types Packs/Day Years [...] AM EST Hospital Encounter Non[place] [address] Arrived documented as of this encounter Procedures Procedure Name Priority Date/Time Associated Diagnosis Comments CARDIAC DEVICE CHECK - REMOTE SCHEDULED Routine 07/18/2014 12:41 AM EDT documented in this encounter Results * Cardiac device check - Remote Scheduled (07/18/2014 12:41 AM EDT) Date Time Interrogation Session [id number] IDCO Type Interrogation Session Remote Scheduled IDCO Clinic Name [facility] IDCO Battery Date Time of Measurements [id number] IDCO Battery Status Beginning of Service IDCO Battery Remaining Longevity 126 mo IDCO Battery Remaining Percentage 100 % IDCO Capacitor Last Charge Date Time [id number] IDCO Capacitor Charge Time 9.9 s IDCO Capacitor Charge Type Reformation IDCO Episode Identifier APM-4 IDCO Episode Date Time [id number] IDCO Episode Type Category Periodic EGM IDCO Episode Vendor Type Category APMRT IDCO Episode Detection And Therapy Details Presenting EGM IDCO Episode Identifier UTQ-93 IDCO Episode Date Time [id number] IDCO Episode Type Category Other IDCO Episode Vendor Type Category XANDER IDCO Episode Detection Interval Ventricular 1,053 ms IDCO Episode Duration 63 s IDCO Episode Detection And Therapy Details IDCO Episode Identifier UT IDCO Episode Date Time [id number] IDCO Episode Type Category Other IDCO Episode Vendor Type Category XANDER IDCO Episode Detection Interval Ventricular 1,000 ms IDCO Episode Duration 60 s IDCO Episode Detection And Therapy Details IDCO Episode Identifier UT IDCO Episode Date Time [id number] IDCO Episode Type Category Other IDCO Episode Vendor Type Category XANDER IDCO Episode Detection Interval Ventricular 1,000 ms IDCO Episode Duration 60 s IDCO Episode Detection And Therapy Details IDCO Episode Identifier IDCO Episode Date Time [id number] IDCO Episode Type Category Other IDCO Episode Vendor Type Category XANDER IDCO Episode Detection Interval Ventricular 952 ms IDCO Episode Duration 57 s IDCO Episode Detection And Therapy Details IDCO Episode Identifier IDCO Episode Date Time [id number] IDCO Episode Type Category Other IDCO Episode Vendor Type Category XANDER IDCO Episode Detection Interval Ventricular 968 ms IDCO Episode Duration 58 s IDCO Episode Detection And Therapy Details IDCO Episode Identifier IDCO Episode Date Time [id number] IDCO Episode Type Category Other IDCO Episode Vendor Type Category XANDER IDCO Episode Detection Interval Ventricular 1,091 ms IDCO Episode Duration 53 s IDCO Episode Detection And Therapy Details IDCO Episode Identifier [facility] IDCO Episode Date Time [id number] IDCO Episode Type Category Other IDCO Episode Vendor Type Category XANDER IDCO Episode Detection Interval Ventricular 1,071 ms IDCO Episode Duration 44 s IDCO Episode Detection And Therapy Details [facility] IDCO Episode Identifier [facility]-8786 IDCO Episode Date Time [id number] IDCO Episode Type Category Other IDCO Episode Vendor Type Category XANDER IDCO Episode Detection Interval Ventricular 1,053 ms IDCO Episode Duration 63 s IDCO Episode Detection And Therapy Details [facility] IDCO Episode Identifier [facility]-8785 IDCO Episode Date Time [id number] IDCO Episode Type Category Other IDCO Episode Vendor Type Category XANDER IDCO Episode Detection Interval Ventricular 1,053 ms IDCO Episode Duration 56 s IDCO Episode Detection And Therapy Details [facility] IDCO Episode Identifier [facility]-8784 IDCO Episode Date Time [id number] IDCO Episode Type Category Other IDCO Episode Vendor Type Category XANDER IDCO Episode Detection Interval Ventricular 822 ms IDCO Episode Duration 49 s IDCO Episode Detection And Therapy Details [facility] IDCO Episode Identifier ATR-10 IDCO Episode Date Time [id number] IDCO Episode Type Category AT/AF IDCO Episode Vendor Type Category ATR IDCO Episode Detection Interval Atrial 224 ms IDCO Episode Duration 77,575 s IDCO Episode Detection And Therapy Details ATR IDCO Episode Identifier ATR-9 IDCO Episode Date Time [id number] IDCO Episode Type Category AT/AF IDCO Episode Vendor Type Category ATR IDCO Episode Detection Interval Atrial 284 ms IDCO Episode Duration 9 s IDCO Episode Detection And Therapy Details ATR IDCO Episode Identifier ATR-8 IDCO Episode Date Time [id number] IDCO Episode Type Category AT/AF IDCO Episode Vendor Type Category ATR IDCO Episode Detection Interval Atrial 385 ms IDCO Episode Duration 6 s IDCO Episode Detection And Therapy Details ATR IDCO Episode Identifier ATR-7 IDCO Episode Date Time [id number] IDCO Episode Type Category AT/AF IDCO Episode Vendor Type Category ATR IDCO Episode Detection Interval Atrial 833 ms IDCO Episode Duration 1 s IDCO Episode Detection And Therapy Details ATR IDCO Episode Identifier ATR-6 IDCO Episode Date Time [id number] IDCO Episode Type Category AT/AF IDCO Episode Vendor Type Category ATR IDCO Episode Detection Interval Atrial 261 ms IDCO Episode Duration 11 s IDCO Episode Detection And Therapy Details ATR IDCO Episode Identifier V-3 IDCO Episode Date Time [id number] IDCO Episode Type Category [place] IDCO Episode Vendor Type Category NSVT IDCO Episode Type Induced Flag NO IDCO Episode Detection Interval Ventricular 331 ms IDCO Episode Duration 6 s IDCO Episode Detection And Therapy Details [facility] IDCO Episode Identifier ATR-5 IDCO Episode Date Time [id number] IDCO Episode Type Category AT/AF IDCO Episode [...] Episode Identifier ATR-3 IDCO Episode Date Time [id number] IDCO Episode Type Category AT/AF IDCO Episode Vendor Type Category ATR IDCO Episode Detection Interval Atrial 196 ms IDCO Episode Duration 6,757 s IDCO Episode Detection And Therapy Details ATR IDCO Episode Identifier ATR-2 IDCO Episode Date Time IDCO Episode Type [...] E162 IDCO Implantable Pulse Generator Serial Number [id number] IDCO Implantable Pulse Generator Cardiac Catheterization Technologist [place] [employer] IDCO Implantable Pulse Generator Implant Date 20140110 IDCO Implantable Lead Model 4136 IDCO Implantable Lead Serial Number [id number] IDCO Implantable Lead Cardiac Catheterization Technologist Guidant IDCO Implantable Lead Implant Date 20130421 IDCO Implantable Lead Polarity Type Bipolar Lead IDCO Implantable Lead Location Right Atrium IDCO Implantable Lead Model 0292 IDCO Implantable Lead Serial Number [id number] IDCO Implantable Lead Cardiac Catheterization Technologist [place] [employer] IDCO Implantable Lead Implant Date [...] IDCO Lead Channel Pacing Threshold Measurement Method Clothing Pattern Preparer Manual IDCO Lead Channel Pacing Threshold [...] IDCO Lead Channel Pacing Threshold Measurement Method Clothing Pattern Preparer Manual IDCO Lead Channel Pacing Threshold [...] on filedocumented in this encounter Care Teams Melting Supervisor Relationship Specialty Start Date End Date Ángel Bingham MD [facility] [address] [place] [address] PCP - General 01/31/14 09/01/16 documented as of this encounter
--- OUTSIDE RECORDS SUMMARY | 2024-04-19 15:29 | XMS_ITS | Encounter Summary ---
Author Organization [facility] [place] [address] Care Team Providers Care Registered Medical Assistant Name Role Phone Ángel Bingham MD Primary Care Provider [phone] Encounter Details Date Type Department Care Team (Late st Contact Info) Description 01/16/2015 Orders Only Cardiology at [address] [address] Social History Tobacco Use Types Packs/Day Years [...] AM EST Hospital Encounter [place] [address] Arrived documented as of this encounter Procedures Procedure Name Priority Date/Time Associated Diagnosis Comments CARDIAC DEVICE CHECK - REMOTE SCHEDULED Routine 01/16/2015 12:42 AM EDT documented in this encounter Results * Cardiac device check - Remote Scheduled (01/16/2015 12:42 AM EDT) Date Time Interrogation Session [id number] IDCO Type Interrogation Session Remote Scheduled IDCO Clinic Name [facility] IDCO Battery Date Time of Measurements [id number] IDCO Battery Status Beginning of Service IDCO [...] Therapy Details Presenting EGM [id number] Episode Date Time IDCO Episode Type [...] E162 IDCO Implantable Pulse Generator Serial Number [id number] IDCO Implantable Pulse Generator Branch Officer [place] [employer] IDCO Implantable Pulse Generator Implant Date 20140110 IDCO Implantable Lead Model 4136 IDCO Implantable Lead Serial Number [id number] IDCO Implantable Lead Branch Officer Guidant IDCO Implantable Lead Implant Date 20130421 IDCO Implantable Lead Polarity Type Bipolar Lead IDCO Implantable Lead Location Right Atrium IDCO Implantable Lead Model 0292 IDCO Implantable Lead Serial Number [id number] IDCO Implantable Lead Branch Officer [place] [employer] IDCO Implantable Lead Implant Date IDCO [...] Lead Channel Pacing Threshold Measurement Method Senior Market Research Analyst Manual IDCO Lead Channel Pacing Threshold [...] Lead Channel Pacing Threshold Measurement Method Senior Market Research Analyst Manual IDCO Lead Channel Pacing Threshold [...] on filedocumented in this encounter Care Teams Registered Medical Assistant Relationship Specialty Start Date End Date Ángel Bingham MD [facility] [address] [place] [address] PCP - General 01/31/14 09/01/16 documented as of this encounter
--- OUTSIDE RECORDS SUMMARY | 2024-04-19 15:29 | XMS_ITS | Encounter Summary ---
Author Organization [facility] [place] [address] Care Team Providers Care Associate Creative Director Name Role Phone Ángel Bingham MD Primary Care Provider [phone] Reason for Visit * Reason Comments Medication Refill Encounter Details Date Type Department Care Team (Late st Contact Info) Description 03/03/2015 Refill Cardiology at [address] [phone] Kit Self MD [facility] [place] [address] Medication Refill Social History Tobacco Use Types [...] AM EST Hospital Encounter Non[place] [phone] Arrived documented as of this encounter Visit Diagnoses Not on filedocumented in this encounter Care Teams Associate Creative Director Relationship Specialty Start Date End Date Ángel Bingham MD [facility] [address] [place] [address] [place] [address] PCP - General 01/31/14 09/01/16 documented as of this encounter
--- OUTSIDE RECORDS SUMMARY | 2024-04-19 15:29 | XMS_ITS | Encounter Summary ---
Author Organization [facility] Address [facility] [place] [address] Care Team Providers Care Tool Carrier Name Role Phone Ángel Bingham MD Primary Care Provider [phone] Encounter Details Date Type Department Care Team (Late st Contact Info) Description 07/18/2014 10:40 AM EDT Follow-Up Cardiology at [address] [address] Kit Self MD [facility] [place] [address] Typical atrial flutter; CAD (coronary artery disease); [...] from the original note were not included. [facility] JAYA Cao [address] CARDIOLOGY OUTPATIENT FOLLOW-UP NOTE Marquez Kimzhang [id number] PCP: ÁNGEL BINGHAM MD 07/18/2014 PRIMARY CARE PROVIDER: ÁNGEL BINGHAM MD PROBLEM LIST: Patient Active Problem List Diagnosis ??? ASCVD (arteriosclerotic cardiovascular disease) ?? Heart catheterization in [facility] in 2007 with placement of a stent in an unspecified vessel ?? Repeat heart catheterization in 2008 with placement of stents to both the LAD and circumflex ?? Followup heart catheterization in 2008 showing stable results in both vessels ?? Her current chest discomfort in a somewhat atypical pattern beginning fall ?? Nuclear stress test at [facility] [place] [facility] in [place], [place] May 02, 2013 during which he developed left shoulder and arm discomfort during submaximal exercise on the treadmill and after which he was converted to a pharmacologic test; nuclear imaging showed ejection fraction of 45% with a partially reversible inferior defect ?? Cath [facility] 05/13/2013: normal left main, mild diffuse disease throughout the LAD with an 80% mid stenosis representing a restenosis lesion, mild diffuse disease in the proximal obtuse marginal branch, and mild diffuse disease throughout the right coronary artery; status post 3.0 X 12 mm JON to 80%mid-LAD lesion (in-stent restenosis) ?? Heart catheterization [facility] January 06, 2014 showing normal left main, [...] 80 (documented on ICD interrogation 07/18/14) ?? [id number] score = 3 ?? Patient initially reluctant to be anticoagulated as recommended ??? Atrial pacemaker lead displacement New finding at office follow up 04/10/2014 Plan lead reposition/replacement ??? ICD (implantable cardioverter-defibrillator), dual, in situ New Atrial electrode: Guidant Dextrus Model# 4126-53 cm Serial# [id number] ?? Bipolar, steroid-tipped, active-fixation IS-1 lead ?? [...] at 10 V: No Old Ventricular electrode: Nebo AMEE [place] Model# 0292 Serial# [id number] ?? Bipolar, steroid-tipped, active-fixation DF-4 lead ?? [...] Atrial electrode: Guidant Dextrus Model# 4136 Serial# [id number] ?? Bipolar, steroid-tipped, active-fixation IS-1 lead ?? Access: Axillary vein ?? Location Removed 04/17/2014 ?? Implanted: 01/10/2014 Pulse generator: Nebo [employer] Incepta Model# E162 Serial# [id number] ?? DDDR ICD ?? Location: Subcutaneous The [...] 2 times daily. 90 tablet 6 ??? Slick-3 Fatty Acids (FISH OIL) 500 mg Cap Take by mouth daily. ??? multivitamin capsule Take 1 capsule by mouth daily. ??? LANCETS MISC by Misc.(Non-Drug; Combo Route) route. ??? lamotrigine (LAMICTAL) 100 mg tablet Take 100 mg by mouth daily. ??? alprazolam (XANAX XR) 3 mg 24 hr tablet Take 3 mg by mouth as needed. ? ? lactobac cmb #[id number] (PROBIOTIC & ACIDOPHILUS) 300-250 million cell- mg [...] artery disease and has undergone stenting in [place] and has twice undergone heart catheterization at [facility], the first of which was in April [...] Sustained ventricular tachycardia 3. Atrial flutter with [id number] score of 3 DISCUSSION: He is doing [...] anticoagulation for sustained atrial flutter and elevated [id number] score 3. Cardiology follow-up with pacemaker interrogation in 6 months documented in this encounter Plan of Treatment Upcoming Encounters Date Type Department Care Team (Late st Contact Info) Description 06/15/2024 10:00 AM EST Hospital Encounter [place] [address] Arrived documented as of this encounter Visit Diagnoses Diagnosis Typical atrial flutter Atrial flutter CAD (coronary artery disease) Coronary atherosclerosis of unspecified type of vessel, mi'kmaq or graft Ventricular tachycardia Paroxysmal ventricular tachycardia documented in this encounter Care Teams Tool Carrier Relationship Specialty Start Date End Date Ángel Bingham MD [facility] [address] [place] [address] PCP - General 01/31/14 09/01/16 documented as of this encounter
--- OUTSIDE RECORDS SUMMARY | 2024-04-19 15:29 | XMS_ITS | Encounter Summary ---
[place] [address] Care Team Providers Care Intermodal Dispatcher Name Role Phone Ángel Bingham MD Primary Care Provider [phone] Encounter Details Date Type Department Care Team (Late st Contact Info) Description 09/15/2014 Orders Only Cardiology at [address] [address] Social History Tobacco Use Types Packs/Day Years [...] EST Hospital Encounter Non-Invasive [place] [address] Arrived documented as of this encounter Procedures Procedure Name Priority Date/Time Associated Diagnosis Comments CARDIAC DEVICE CHECK - REMOTE PATIENT INITIATED Routine 09/15/2014 5:17 AM EDT documented in this encounter Results * Cardiac device check - Remote Patient Initiated (09/15/2014 5:17 AM EDT) Date Time Interrogation Session [id number] IDCO Type Interrogation Session Remote Patient Initiated IDCO Clinic Name [facility] IDCO Battery Date Time of Measurements [id number] IDCO Battery Status Beginning of Service IDCO Battery Remaining Longevity 126 mo IDCO Battery Remaining Percentage 100 % IDCO Capacitor Last Charge Date Time IDCO Capacitor Charge Time 9.9 s IDCO Capacitor Charge Type Reformation IDCO Episode Identifier APM-8 IDCO Episode Date Time [id number] IDCO Episode Type Category Periodic EGM IDCO Episode Vendor Type Category APMRT IDCO Episode Detection And Therapy Details Presenting EGM IDCO Episode Identifier [id number] IDCO Episode Date Time [id number] IDCO Episode Type Category Other IDCO Episode Vendor Type Category XANDER IDCO Episode Detection Interval Ventricular 1,053 ms IDCO Episode Duration 63 s IDCO Episode Detection And Therapy Details IDCO Episode Identifier IDCO Episode Date Time [id number] IDCO Episode Type Category Other IDCO Episode [...] Detection And Therapy Details IDCO Episode Identifier [id number] IDCO Episode Date Time IDCO Episode Type Category Other IDCO Episode Vendor Type Category XANDER IDCO Episode Detection Interval Ventricular 870 ms IDCO Episode Duration 52 s IDCO Episode Detection And Therapy Details [facility] IDCO Episode Identifier [id number] IDCO Episode Date Time IDCO Episode Type Category Other IDCO Episode Vendor Type Category XANDER IDCO Episode Detection Interval Ventricular 952 ms IDCO Episode Duration 61 s IDCO Episode Detection And Therapy Details [facility] IDCO Episode Identifier IDCO Episode Date Time IDCO Episode Type Category Other IDCO Episode Vendor Type Category XANDER IDCO Episode Detection Interval Ventricular 923 ms IDCO Episode Duration 58 s IDCO Episode Detection And Therapy Details [facility] IDCO Episode Identifier [id number] IDCO Episode Date Time IDCO Episode Type Category Other IDCO Episode Vendor Type Category XANDER IDCO Episode Detection Interval Ventricular 909 ms IDCO Episode Duration 51 s IDCO Episode Detection And Therapy Details [facility] IDCO Episode Identifier [id number] IDCO Episode Date [...] E162 IDCO Implantable Pulse Generator Serial Number [id number] IDCO Implantable Pulse Generator Team Leader/Research Psychologist [place] [employer] IDCO Implantable Pulse Generator Implant Date 20140110 IDCO Implantable Lead Model 4136 IDCO Implantable Lead Serial Number [id number] IDCO Implantable Lead Team Leader/Research Psychologist Guidant IDCO Implantable Lead Implant Date 20130421 IDCO Implantable Lead Polarity Type Bipolar Lead IDCO Implantable Lead Location Right Atrium IDCO Implantable Lead Model 0292 IDCO Implantable Lead Serial Number [id number] IDCO Implantable Lead Team Leader/Research Psychologist [place] [employer] IDCO Implantable Lead Implant Date IDCO [...] IDCO Lead Channel Pacing Threshold Measurement Method Collision Technician Manual IDCO Lead Channel Pacing Threshold [...] IDCO Lead Channel Pacing Threshold Measurement Method Collision Technician Manual IDCO Lead Channel Pacing Threshold [...] on filedocumented in this encounter Care Teams Intermodal Dispatcher Relationship Specialty Start Date End Date Ángel Bingham MD [facility] [address] [place] [address] PCP - General 01/31/14 09/01/16 documented as of this encounter
--- OUTSIDE RECORDS SUMMARY | 2024-04-19 15:29 | XMS_ITS | Encounter Summary ---
[place] [address] Care Team Providers Care Reel Fed Printer Name Role Phone Ángel Bingham MD Primary Care Provider [phone] Encounter Details Date Type Department Care Team (Late st Contact Info) Description 08/17/2014 Orders Only Cardiology at [address] [address] Social History Tobacco Use Types Packs/Day Years [...] AM EST Hospital Encounter Non-[place] [address] Arrived documented as of this encounter Procedures Procedure Name Priority Date/Time Associated Diagnosis Comments CARDIAC DEVICE CHECK - REMOTE PATIENT INITIATED Routine 08/17/2014 6:45 AM EDT documented in this encounter Results * (ABNORMAL) Cardiac device check - Remote Patient Initiated (08/17/2014 6:45 AM EDT) Date Time Interrogation Session [id number] IDCO Type Interrogation Session Remote Patient Initiated IDCO Clinic Name [facility] IDCO Battery Date Time of Measurements [id number] IDCO Battery Status Beginning of Service IDCO Battery Remaining Longevity 126 mo IDCO Battery Remaining Percentage 100 % IDCO Capacitor Last Charge Date Time IDCO Capacitor Charge Time 9.9 s IDCO Capacitor Charge Type Reformation IDCO Episode Identifier APM-7 IDCO Episode Date Time [id number] IDCO Episode Type Category Periodic EGM IDCO [...] E162 IDCO Implantable Pulse Generator Serial Number [id number] IDCO Implantable Pulse Generator Airline Security Representative [place] [employer] IDCO Implantable Pulse Generator Implant Date 20140110 IDCO Implantable Lead Model 4136 IDCO Implantable Lead Serial Number [id number] IDCO Implantable Lead Airline Security Representative Guidant IDCO Implantable Lead Implant Date 20130421 IDCO Implantable Lead Polarity Type Bipolar Lead IDCO Implantable Lead Location Right Atrium IDCO Implantable Lead Model 0292 IDCO Implantable Lead Serial Number [id number] IDCO Implantable Lead Airline Security Representative [place] [employer] IDCO Implantable Lead Implant Date IDCO [...] IDCO Lead Channel Pacing Threshold Measurement Method Pathology Lab Technician Manual IDCO Lead Channel Pacing Threshold [...] IDCO Lead Channel Pacing Threshold Measurement Method Pathology Lab Technician Manual IDCO Lead Channel Pacing Threshold [...] on filedocumented in this encounter Care Teams Reel Fed Printer Relationship Specialty Start Date End Date Ángel Bingham MD [facility] [address] [place] [address] PCP - General 01/31/14 09/01/16 documented as of this encounter
--- OUTSIDE RECORDS SUMMARY | 2024-04-19 15:29 | XMS_ITS | Encounter Summary ---
Author Organization [facility] [place] [address] Care Team Providers Care Systems Support Officer Name Role Phone Ángel Bingham MD Primary Care Provider [phone] Reason for Visit * Reason Onset Date Comments Medication Refill 04/25/2015 Encounter Details Date Type Department Care Team (Late st Contact Info) Description 04/25/2015 Refill Cardiology at [address] [address] Kit Self MD [facility] [place] [address] Medication Refill Social History Tobacco Use Types [...] AM EST Hospital Encounter Non[place] [address] Arrived documented as of this encounter Visit Diagnoses Not on filedocumented in this encounter Care Teams Systems Support Officer Relationship Specialty Start Date End Date Ángel Bingham MD [facility] [address] [place] [address] PCP - General 01/31/14 09/01/16 documented as of this encounter
--- OUTSIDE RECORDS SUMMARY | 2024-04-19 15:29 | XMS_ITS | Encounter Summary ---
Author Organization [facility] [place] [address] Care Team Providers Care Lift Truck Mechanic Name Role Phone Ángel Bingham MD Primary Care Provider [phone] Reason for Visit * Reason Onset Date Comments Other 07/06/2014 MAP-Possible ass istance ? Encounter Details Date Type Department Care Team (Late Contact Info) Description 07/06/2014 [place] [phone] Rafaela Randhawa Other (MAP-Possible assistance ?) Social [...] Pt stated purchased Medicare and Part D plan.[id number] documented in this encounter Plan of Treatment Upcoming Encounters Date Type Department Care Team (Late Contact Info) Description 06/15/2024 10:00 AM EST Hospital Encounter Non[place] [address] Arrived documented as of this encounter Visit Diagnoses Not on filedocumented in this encounter Care Teams Lift Truck Mechanic Relationship Specialty Start Date End Date Ángel Bingham MD [facility] [address] [place] [address] PCP - General 01/31/14 09/01/16 documented as of this encounter
--- OUTSIDE RECORDS SUMMARY | 2024-04-19 15:29 | XMS_ITS | Encounter Summary ---
[place] [address] Care Team Providers Care Inclusion Special Educator Name Role Phone Ángel Bingham MD Primary Care Provider [phone] Encounter Details Date Type Department Care Team (Late st Contact Info) Description 09/15/2014 Orders Only Cardiology at [address] [address] Social History Tobacco Use Types Packs/Day Years [...] AM EST Hospital Encounter Non-[place] [address] Arrived documented as of this encounter Procedures Procedure Name Priority Date/Time Associated Diagnosis Comments CARDIAC DEVICE CHECK - REMOTE PATIENT INITIATED Routine 09/15/2014 5:22 AM EDT documented in this encounter Results * Cardiac device check - Remote Patient Initiated (09/15/2014 5:22 AM EDT) Date Time Interrogation Session [id number] IDCO Type Interrogation Session Remote Patient Initiated IDCO Clinic Name [facility] IDCO Battery Date Time of Measurements [id number] IDCO Battery Status Beginning of Service IDCO [...] E162 IDCO Implantable Pulse Generator Serial Number [id number] IDCO Implantable Pulse Generator Chemistry Tutor [employer] IDCO Implantable Pulse Generator Implant Date 20140110 IDCO Implantable Lead Model 4136 IDCO Implantable Lead Serial Number [id number] IDCO Implantable Lead Chemistry Tutor Guidant IDCO Implantable Lead Implant Date 20130421 IDCO Implantable Lead Polarity Type Bipolar Lead IDCO Implantable Lead Location Right Atrium IDCO Implantable Lead Model 0292 IDCO Implantable Lead Serial Number [id number] IDCO Implantable Lead Chemistry Tutor [employer] IDCO Implantable Lead Implant Date IDCO [...] IDCO Lead Channel Pacing Threshold Measurement Method Financial Investment Manager Manual IDCO Lead Channel Pacing Threshold [...] IDCO Lead Channel Pacing Threshold Measurement Method Financial Investment Manager Manual IDCO Lead Channel Pacing Threshold [...] on filedocumented in this encounter Care Teams Inclusion Special Educator Relationship Specialty Start Date End Date Ángel Bingham MD [facility] [address] [place] [address] PCP - General 01/31/14 09/01/16 documented as of this encounter
--- OUTSIDE RECORDS SUMMARY | 2024-04-19 15:30 | XMS_ITS | Encounter Summary ---
[place] [address] Care Team Providers Care Machine Fitter Name Role Phone Ángel Bingham MD Primary Care Provider [phone] Encounter Details Date Type Department Care Team (Late st Contact Info) Description 02/11/2014 Orders Only Cardiology at [address] [address] Social History Tobacco Use Types Packs/Day Years [...] Hospital Encounter Non-[place] [address] Arrived documented as of this encounter Procedures Procedure Name Priority Date/Time Associated Diagnosis Comments CARDIAC DEVICE CHECK - REMOTE PATIENT INITIATED Routine 02/11/2014 11:56 AM EDT documented in this encounter Results * Cardiac device check - Remote Patient Initiated (02/11/2014 11:56 AM EDT) Date Time Interrogation Session [id number] IDCO Type Interrogation Session Remote Patient Initiated IDCO Clinic Name [facility] IDCO Battery Date Time of Measurements [id number] IDCO Battery Status Beginning of Service IDCO Battery Remaining Longevity 126 mo IDCO Battery Remaining Percentage 100 % IDCO Capacitor Last Charge Date Time [id number] IDCO Capacitor Charge Time 9.7 s IDCO Capacitor Charge Type Reformation IDCO Episode Identifier APM-1 IDCO Episode Date Time [id number] IDCO Episode Type Category Periodic EGM IDCO Episode Vendor Type Category APMRT IDCO Episode Detection And Therapy Details Presenting EGM IDCO Episode Identifier Q IDCO Episode Date Time [id number] IDCO Episode Type Category Other IDCO Episode Vendor Type Category XANDER IDCO Episode Detection Interval Ventricular 1,304 ms IDCO Episode Duration 52 s IDCO Episode Detection And Therapy Details IDCO Episode Identifier IDCO Episode Date Time [id number] IDCO Episode Type Category Other IDCO Episode Vendor Type Category XANDER IDCO Episode Detection Interval Ventricular 845 ms IDCO Episode Duration 46 s IDCO Episode Detection And Therapy Details IDCO Episode Identifier IDCO Episode Date Time [id number] IDCO Episode Type Category Other IDCO Episode Vendor Type Category XANDER IDCO Episode Detection Interval Ventricular 1,000 ms IDCO Episode Duration 60 s IDCO Episode Detection And Therapy Details IDCO Episode Identifier IDCO Episode Date Time [id number] IDCO Episode Type Category Other IDCO Episode Vendor Type Category XANDER IDCO Episode Detection Interval Ventricular 938 ms IDCO Episode Duration 56 s IDCO Episode Detection And Therapy Details IDCO Episode Identifier IDCO Episode Date Time [id number] IDCO Episode Type Category Other IDCO Episode Vendor Type Category XANDER IDCO Episode Detection Interval Ventricular 909 ms IDCO Episode Duration 208 s IDCO Episode Detection And Therapy Details IDCO Episode Identifier IDCO Episode Date Time [id number] IDCO Episode Type Category Other IDCO Episode Vendor Type Category XANDER IDCO Episode Detection Interval Ventricular 984 ms IDCO Episode Duration 59 s IDCO Episode Detection And Therapy Details IDCO Episode Identifier IDCO Episode Date Time [id number] IDCO Episode Type Category Other IDCO Episode Vendor Type Category XANDER IDCO Episode Detection Interval Ventricular 896 ms IDCO Episode Duration 271 s IDCO Episode Detection And Therapy Details Q IDCO Episode Identifier RY IDCO Episode Date Time IDCO Episode Type [...] IDCO Episode Identifier IDCO Episode Date Time [id number] IDCO Episode Type Category Other IDCO Episode Vendor Type Category XANDER IDCO Episode Detection Interval Ventricular 968 ms IDCO Episode Duration 57 s IDCO Episode Detection And Therapy Details IDCO Episode Identifier V-1 IDCO Episode Date Time IDCO Episode Type Category VF IDCO Episode [...] E162 IDCO Implantable Pulse Generator Serial Number [id number] IDCO Implantable Pulse Generator Surgical Scrub Technologist [place] [employer] IDCO Implantable Pulse Generator Implant Date 20140110 IDCO Implantable Lead Model 4136 IDCO Implantable Lead Serial Number [id number] IDCO Implantable Lead Surgical Scrub Technologist Guidant IDCO Implantable Lead Implant Date IDCO Implantable Lead Polarity Type Bipolar Lead IDCO Implantable Lead Location Right Atrium IDCO Implantable Lead Model 0292 IDCO Implantable Lead Serial Number [id number] IDCO Implantable Lead Surgical Scrub Technologist [place] [employer] IDCO Implantable Lead Implant Date IDCO [...] IDCO Lead Channel Pacing Threshold Measurement Method Ring Striker Manual IDCO Lead Channel Pacing Threshold Polarity [...] IDCO Lead Channel Pacing Threshold Measurement Method Ring Striker Manual IDCO Lead Channel Pacing Threshold Polarity Bipolar IDCO Lead Channel Impedance Value 558 ohms IDCO Lead Channel Impedance Polarity Bipolar IDCO Lead High Voltage Channel Date Time [id number] IDCO Lead High Voltage Channel Impedance 79 [...] filedocumented in this encounter Care Teams Machine Fitter Relationship Specialty Start Date End Date Ángel Bingham MD [facility] [address] [place] [address] PCP - General 01/31/14 09/01/16 documented as of this encounter
--- OUTSIDE RECORDS SUMMARY | 2024-04-19 15:30 | XMS_ITS | Encounter Summary ---
Author [place] [address] Care Team Providers Care Asphalt Distributor Tender Name Role Phone Ángel Bingham MD Primary Care Provider [phone] Reason for Visit * Reason Comments Cardiomyopathy Encounter Details Date Type Department Care Team (Late st Contact Info) Description 04/10/2014 9:30 AM EST Office Visit Cardiology at [address] [phone] Raul Lopes RN Sustained VT (ventricular tachycardia) [...] He complains of some LLOYD since implant. Middle School Counselor: Kit Self MD PCP: ÁNGEL BINGHAM MD Final Parameters: Ventricular electrode: [place] SCYFIX [place] Model# 0292 Serial# [id number] ?? Bipolar, steroid-tipped, active-fixation, single coil DF-4 lead ?? Access: Left axillary vein ?? Location: RV apex ?? R wave, ICD: 9.6 mV ?? Pacing threshold, ICD: 0.6 V at 0.5 ms ?? Impedance, ICD: 913 ohms (74 ohms for shock vector) ?? Pace the diaphragm at 10 V: No Atrial electrode: [place] SCYFIX Dextrus Model# 4136 Serial# [id number] ?? Bipolar, steroid-tipped, active-fixation IS-1 lead ?? Access: Left axillary vein ?? Location Right atrial appendage ?? P wave, ICD: 4.3 mV ?? Pacing threshold, pacemaker: 1.7 V at 0.5 ms ?? Impedance, pacemaker: 538 ohms ?? Pace the diaphragm at 10 V: No Pulse generator: [place] Scientific Incepta Model# E162 Serial# [id number] DDDR ICD ?? Location: Subcutaneous Tachy settings: [...] histograms: Reasonable distribution Pacing percentages: AP 48%; HIDE INSPECTOR 21% Mode switch episodes: None Monitored events: [...] with the plan. Lars Hernandez DO Cardiac Security Systems Engineer Cardiac Electrophysiology Department [place], [place] ) Pager [phone] documented in this encounter Plan of Treatment Upcoming Encounters Date Type Department Care Team (Late st Contact Info) Description 06/15/2024 10:00 AM EST Hospital Encounter [place] [address] Arrived documented as of this encounter Visit Diagnoses Diagnosis Sustained VT (ventricular tachycardia) Paroxysmal ventricular tachycardia documented in this encounter Care Teams Asphalt Distributor Tender Relationship Specialty Start Date End Date Ángel Bingham MD [facility] [address] [place] [address] PCP - General 01/31/14 09/01/16 documented as of this encounter
--- OUTSIDE RECORDS SUMMARY | 2024-04-19 15:30 | XMS_ITS | Encounter Summary ---
Author [facility] [place] [address] Care Team Providers Care Retail Cosmetics Sales Beauty Advisor Name Role Phone Ángel Bingham MD Primary Care Provider [phone] Encounter Details Date Type Department Care Team (Late st Contact Info) Description 04/10/2014 Orders Only Cardiology at [address] [address] Social History Tobacco Use Types Packs/Day Years [...] AM EST Hospital Encounter [place] [address] Arrived documented as of this encounter Procedures Procedure Name Priority Date/Time Associated Diagnosis Comments CARDIAC DEVICE CHECK - IN CLINIC Routine 04/10/2014 10:51 AM EST documented in this encounter Results * (ABNORMAL) Cardiac device check - In Clinic (04/10/2014 10:51 AM EST) Date Time Interrogation Session IDCO Type Interrogation Session In Clinic IDCO Clinic Name [facility] IDCO Battery Date Time of Measurements IDCO [...] [id number] IDCO Implantable Pulse Generator Serial Number [id number] IDCO Implantable Pulse Generator Sales Order Specialist [place] Scientific IDCO Implantable Pulse Generator Implant Date [id number] IDCO Implantable Lead Model 4136 IDCO Implantable Lead Serial Number [id number] IDCO Implantable Lead Sales Order Specialist [place] IDCO Implantable Lead Implant Date IDCO Implantable Lead Polarity Type Bipolar Lead IDCO Implantable Lead Location Right Atrium IDCO Implantable Lead Model 0292 IDCO Implantable Lead Serial Number [id number] IDCO Implantable Lead Sales Order Specialist [place] Scientific IDCO Implantable Lead Implant Date IDCO [...] End [id number] IDCO Atrial Tachy Statistic AT/AF [place] Percent 0 % IDCO Therapy Statistic Recent [...] filedocumented in this encounter Care Teams Retail Cosmetics Sales Beauty Advisor Relationship Specialty Start Date End Date Ángel Bingham MD [facility] [address] [place] [address] PCP - General 01/31/14 09/01/16 documented as of this encounter
--- OUTSIDE RECORDS SUMMARY | 2024-04-19 15:30 | XMS_ITS | Encounter Summary ---
[place] [address] Care Team Providers Care Breast Surgeon Name Role Phone Ángel Bingahm MD Primary Care Provider [phone] Encounter Details Date Type Department Care Team (Late st Contact Info) Description 04/11/2014 Orders Only Cardiology at [address] [phone] Myrna Shepard MD Ventricular tachycardia Social History Tobacco Use Types [...] AM EST Hospital Encounter Non-[place] [address] Arrived documented as of this encounter Visit Diagnoses Diagnosis Ventricular tachycardia Paroxysmal ventricular tachycardia documented in this encounter Care Teams Breast Surgeon Relationship Specialty Start Date End Date Ángel Bingham MD [facility] 1 [facility] [place] [address] PCP - General 01/31/14 09/01/16 documented as of this encounter
--- OUTSIDE RECORDS SUMMARY | 2024-04-19 15:30 | XMS_ITS | Encounter Summary ---
Author Organization [facility] Address [facility] [place] [address] Care Team Providers Care Scheduling Coordinator Name Role Phone Ángel Bingham MD Primary Care Provider [phone] Encounter Details Date Type Department Care Team (Latest Contact Info) Description 04/17/2014 8:22 AM EST - 04/17/2014 11:59 PM [facility] Hospital [place] [phone] José Manuel Fabian MD [facility] [place] [address] Discharge Disposition: Home Social History Tobacco Use [...] times daily. 90 tablet 6 05/14/2013 01/27/2017 Collins-3 Fatty Acids (FISH OIL) 500 mg Cap Take by mouth daily. 01/14/2016 lamotrigine (LAMICTAL) 100 mg tablet Take 200 mg by mouth daily. 09/01/2018 alprazolam (XANAX XR) 3 mg 24 hr tablet Take 3 mg by mouth nightly. 09/18/2020 [facility] cmb #[id number] (PROBIOTIC & ACIDOPHILUS) 300-250 million cell-mg Cap [...] AM EST Hospital Encounter Non[place] [address] Arrived documented as of this encounter Procedures Procedure Name Priority Date/Time Associated Diagnosis Comments BMP W/FASTING GLUCOSE STAT 04/17/2014 8:29 AM EST HEMOGRAM STAT 04/17/2014 8:29 AM EST DIFFERENTIAL, AUTOMATED STAT 04/17/2014 8:29 AM EST PROTHROMBIN TIME STAT 04/17/2014 8:29 AM EST CBC (WITH DIFF) STAT 04/17/2014 8:29 AM EST documented in this encounter Results * (ABNORMAL) Differential, Automated (04/17/2014 8:29 AM EST) Neutrophil % 47.0 % CERNER MILLENNIUM Neutrophil Absolute 3.30 1.50 - 6.30 x10(3)/mc L CERNER MILLENNIUM Lymph % 38.1 % CERNER MILLENNIUM Lymphocytes Abs 2.7 1.0 - 3.6 x10(3)/mc L CERNER MILLENNIUM Monocyte % 5.8 % CERNER MILLENNIUM Monocyte Abs 0.4 0.2 - 1.0 x10(3)/mc L CERNER MILLENNIUM Eos % 8.3 % CERNER MILLENNIUM Eosinophils Abs 0.6(H) 0.0 - 0.5 x10(3)/mc L CERNER MILLENNIUM Basophil % 0.7 % CERNER MILLENNIUM Baso Absolute 0.0 0.0 - 0.2 x10(3)/mc L CERNER MILLENNIUM Immature Gran % 0.10 % CERN ER MILLENNIUM Comment: Immature granulocytes(IG's)percentage and absolute count will include metamyelocytes, myelocytes, and promyelocytes. Blood smears from CBCs yielding IG's will be scanned manually for concordance. If this scan disagrees with the automated IG or if promyelocytes are noted, a manual differential will be performed. Immature Gran Absolute 0.01 0.00 - 0.05 x10(3)/mc L CERNER MILLENNIUM Blood specimen (specimen) 04/17/2014 8:29 AM EST 04/17/2014 8:48 AM EST Narrative Resulting Agency Comment Spec In Lab José Manuel Fabian MD HEMATOLOGY ORDERABLE S CERNER MILLENNIUM * Hemogram (04/17/2014 8:29 AM EST) White Blood Cell 7.0 4.0 - 10.0 x10(3)/mcL CERNER MILLENNIUM Red Blood Cell 4.95 4.63 - 6.08 x10(6)/mcL CERNER MILLENNIUM Hemoglobin 13.9 13.7 - 17.5 gm/dL CERNER MILLENNIUM Hematocrit 41.1 40.0 - 51.0 % CERNER MILLENNIUM Mean Cell Volume 83.0 79.0 - 92.0 fL CERNER MILLENNIUM Mean Cell Hemoglobin 28.1 25.6 - 32.2 pg CERNER MILLENNIUM Mean Cell Hemoglobin Concentration 33.8 32.0 - 36.5 gm/dL CERNER MILLENNIUM Platelet 189 145 - 370 x10(3)/mcL CERNER MILLENNIUM RDW Standard Deviation 40.9 35.0 - 46.0 fL CERNER MILLENNIUM RDW coefficient of variation 13.7 10.9 - 14.4 % CERNER MILLENNIUM Mean Platelet Volume 9.5 9.0 - 12.0 fL CERNER MILLENNIUM [...] of Diabetes Mellitus, Position Statement from the [place] [employer]. ??Diabetes Care, Volume 33, Supplement 1, Apr 2009 Blood Urea Nitrogen 19 10 - 20 mg/dL CERNER MILLENNIUM Creatinine 1.02 0.80 - 1.50 mg/dL CERNER MILLENNIUM Comment: Please note that the pediatric reference intervals supplied above were not validated at [facility]. Results from pediatric patients should be interpreted [...] 99 98 - 107 mmol/L CERNER MILLENNIUM Carbon Dioxide 24 22 - 31 mmol/L CERNER MILLENNIUM Anion Gap 17(H) 5 - 15 mmol/L CERNER MILLENNIUM Calcium 9.6 8.5 - 10.5 mg/dL CERNER MILLENNIUM Est Glomerular Filtration Rate >60 >=60 CERNER MILLENNIUM Comment: This estimated [...] the following links into your internet browser. [email or web address] Blood specimen (specimen) 04/17/2014 8:29 AM EST 04/17/2014 8:48 AM EST Narrative Resulting Agency Comment Spec In Lab José Manuel Fabian MD CHEMISTRY ORDERABLES Performing Organization Address City/[facility] Co de Phone Number MONICA PERALTA * Prothrombin Time (04/17/2014 8:29 AM EST) Prothrombin Time 14.4 12.5 - 15.5 sec CERNER MILLENNIUM Comment: [facility] Transfusion Committee Guidelines: INR less than 2.0, PTT less than OR equal to 43.5 seconds, or Fibrinogen greater than or equal to 100 mg/dl indicate adequate procoagulant activity for hemostasis in patients without underlying bleeding disorders. International Normalization Ratio 1.0 0.9 - 1.1 CERDELMAR ROSEENNIUM Blood specimen (specimen) 04/17/2014 8:29 AM EST 04/17/2014 8:48 AM EST Narrative Resulting Agency Comment Spec In Lab José Manuel Fabian MD HEMATOLOGY ORDERABLE S Performing Organization Address City/State/[facility] Co de Phone Number MONICA PERALTA documented in this encounter Visit Diagnoses Not on filedocumented in this encounter Care Teams Scheduling Coordinator Relationship Specialty Start Date End Date Ángel Bingham MD [facility] [address] [place] [address] PCP - General 01/31/14 09/01/16 documented as of this encounter
--- OUTSIDE RECORDS SUMMARY | 2024-04-19 15:30 | XMS_ITS | Encounter Summary ---
[place] [address] Care Team Providers Care Director Of Individual Giving Name Role Phone Ángel Bingham MD Primary Care Provider Encounter Details Date Type Department Care Team (Late st Contact Info) Description 04/17/2014 10:30 AM EST - 04/17/2014 1:50 PM EST Surgery [place] [address] Myrna Shepard MD ELECTROPHYSIOLOGY PROCEDURE Social History Tobacco Use Types [...] Marquez Hendrix Patient Age: 63 y.o. Language: Thai Race: White Ethnicity: Not nor Admit date: 04/17/2014 Discharge date and time: 04/18/2014929 Attending Physician: Myrna Shepard MD Discharge Physician: Jake Shepard MD Follow-up Recommendations for Providers: S/p atrial lead replacement Scheduled for 90 day post implant follow up Inpatient Provider Contact Information: Cardiac Electrophysiology [phone] Discharge Diagnoses (Hospital Problems) and Secondary Diagnoses [...] 41.1 04/17/2014 PLATELET 189 04/17/2014 Recent Labs 04/17/14828 INR 1.0 Lab Results Component Value Date NA 140 04/17/2014 K 4.6 04/17/2014 CL 99 04/17/2014 BUN 19 04/17/2014 CREATININE 1.02 04/17/2014 MAGNESIUM 0.70 01/11/2014 Treatments: Atrial lead replacement Discharge Exam: Skin: [place], warm and dry HEENT: PERRLA, EOMI, no [...] electrode: Guidant Dextrus Model# 4126-53 cm Serial# [id number] ?? Bipolar, steroid-tipped, active-fixation IS-1 lead ?? Access: Axillary vein ?? Location Right atrial appendage Old Ventricular electrode: [employer] Model# 0292 Serial# [id number] ?? Bipolar, steroid-tipped, active-fixation DF-4 lead ?? Access: Axillary vein ?? Location: Right ventricular apex Old Atrial electrode: Guidant Dextrus Model# 4136 Serial# [id number] ?? Bipolar, steroid-tipped, active-fixation IS-1 lead ?? Access: Axillary vein ?? Location Removed 04/17/2014 ?? Implanted: 01/10/2014 Pulse generator: [employer] Model# E162 Serial# [id number] ?? DDDR ICD ?? Location: Subcutaneous DDDR [...] Cap Take by mouth daily. Generic drug: [place]-3 Fatty Acids Refills: 0 glipiZIDE 5 mg [...] by mouth daily. Generic drug: lactobac cmb #2-xix-rjribghuzb Refills: 0 rosuvastatin 20 mg Tab Commonly [...] a 91 day new device check at [facility]. 4. Remote device follow [...] 07/18/2014 10:00 AM Raul Lopes RN Cardiology [phone] 07/18/2014 10:40 AM Kit Self MD Cardiology [phone] Joint Appt [facility] Int[phone] Discharge References/Attachments None documented in this encounter Discharge Instructions * Patient Instructions* Edy Torres PA - 04/18/2014 7:57 AM EST Final recommendations: 1. Standard post implant discharge instructions (see below): 2. Resume medications as listed. 3. You will be called to schedule a 91 day new device check at [facility]. 4. Remote device follow [...] times daily. 90 tablet 6 05/14/2013 01/27/2017 [place]-3 Fatty Acids (FISH OIL) 500 mg Cap Take by mouth daily. 01/14/2016 lamotrigine (LAMICTAL) 100 mg tablet Take 200 mg by mouth daily. 09/01/2018 alprazolam (XANAX XR) 3 mg 24 hr tablet Take 3 mg by mouth nightly. 09/18/2020 [facility] cmb #2-zkm-tlqlvdgzzk (PROBIOTIC & ACIDOPHILUS) 300-250 million cell-mg Cap Take by mouth daily. 07/11/2015 hydrOXYzine (ATARAX) 25 mg tablet Take 25 mg by mouth 3 times daily as needed. Reported on 09/30/2016 01/27/2017 glipizide (GLUCOTROL) 5 mg 24 hr tablet Take 10 mg by mouth daily. 01/27/2017 documented as of this encounter Progress Notes * WesleyNora Mixon RN - 04/18/2014 8:08 AM EST Office of Care Management Clinical Gasket Winder Patient Name: Marquez Hendrix : 1950, 63 yrs Admission Date: 04/17/2014 1:14 PM Attending: Myrna Shepard MD Order to Admit: Record reviewed and patient discussed with multidisciplinary team. Insurance: [employer] Medical/Surgical: Pt admitted for atrial lead replacement [...] electrode: Guidant Dextrus Model# 4126-53 cm Serial# [id number] ?? Bipolar, steroid-tipped, active-fixation IS-1 lead ?? Access: Axillary vein ?? Location Right atrial appendage Old Ventricular electrode: [employer] [place] Model# 0292 Serial# [id number] ?? Bipolar, steroid-tipped, active-fixation DF-4 lead ?? Access: Axillary vein ?? Location: Right ventricular apex Old Atrial electrode: Guidant Dextrus Model# 4136 Serial# [id number] ?? Bipolar, steroid-tipped, active-fixation IS-1 lead ?? Access: Axillary vein ?? Location Removed 04/17/2014 ?? Implanted: 01/10/2014 Pulse generator: [employer] Incepta Model# E162 Serial# [id number] ?? DDDR ICD ?? Location: Subcutaneous DDDR [...] Date Met: 04/18/14 04/17/14 1353 04/17/14 1636 04/17/14 1935 Mutuality/Individual [...] Outcome: Outcome (s) achieved Date Met: 04/18/14 04/17/14194404/18/14343 Safety Interventions Safety Precautions/Fall Reduction fall reduction [...] (Interventions Implemented as Appropriate) 04/17/14 1353 04/17/14 194 Coping/Psychosocial Response Interventions Plan of Care Reviewed with -- patient Plan of Care Review Plan of Care Outcome Status ongoing (interventions implemented as appropriate) -- Progress progress toward functional goals as expected -- Goal: Individualization and Mutuality Outcome: Ongoing (Interventions Implemented as Appropriate) 04/17/14 1353 04/17/14 1636 04/17/141934 Mutuality/Individual Preferences [...] Handling Outcome: Ongoing (Interventions Implemented as Appropriate) 04/17/14194404/18/14 0344 Safety Interventions Safety Precautions/Fall Reduction [...] Control Outcome: Ongoing (Interventions Implemented as Appropriate) 04/17/141944 Safety Interventions Isolation Precautions standard precautions [...] medication given as ordered. Remained on bedside clip and hanger attacher in [place], paced rhythm. Denies chest [...] EVALUATION NOTE: OUTCOME SUMMARY: Patient admitted to [facility] via bed from EP lab. Is alert [...] Ongoing (Interventions Implemented as Appropriate) 04/17/14 135 Mutuality/Individual Preferences What anxieties, fears or concerns [...] Assessment Outcome: Ongoing (Interventions Implemented as Appropriate) 04/17/141352 Discharge Needs Assessment Concerns to be Addressed [...] AM EST Hospital Encounter [place] [address] Arrived documented as of this encounter Procedures [...] * POCT Glucose (04/18/2014 7:55 AM EST) Glucose, POC 140 60 - 199 mg/dL [facility] Comment: Supplemental ranges: <140 mg/dL before [...] * POCT Glucose (04/18/2014 3:32 AM EST) Glucose, POC 126 60 - 199 mg/dL [facility] Comment: Supplemental ranges: <140 mg/dL before meals <180 mg/dL all other times of the day Blood specimen (specimen) 04/18/2014 3:32 AM EST 04/18/2014 3:32 AM EST Myrna Shepard MD POINT OF CARE TEST ORDERABLES Performing Organization Address [facility] Phone Number [facility] * POCT Glucose (04/18/2014 12:08 AM EST) Glucose, POC 113 60 - 199 mg/dL [facility] Comment: Supplemental ranges: <140 mg/dL before meals <180 mg/dL all other times of the day Blood specimen (specimen) 04/18/2014 12:08 AM EST 04/18/2014 12:08 AM EST Myrna Shepard MD POINT OF CARE TEST ORDERABLES Performing Organization Address [facility] Phone Number [facility] * POCT Glucose (04/17/2014 9:53 PM EST) Glucose, POC 120 60 - 199 mg/dL [facility] Comment: Supplemental ranges: <140 mg/dL before meals <180 mg/dL all other times of the day Blood specimen (specimen) 04/17/2014 9:53 PM EST 04/17/2014 9:53 PM EST Myrna Shepard MD POINT OF CARE TEST ORDERABLES Performing Organization Address [facility] de Phone Number [facility] * POCT Glucose (04/17/2014 8:03 PM EST) Glucose, POC 169 60 - 199 mg/dL [facility] Comment: Supplemental ranges: <140 mg/dL before meals <180 mg/dL all other times of the day Blood specimen (specimen) 04/17/2014 8:03 PM EST 04/17/2014 8:03 PM EST Myrna Shepard MD POINT OF CARE TEST ORDERABLES Performing Organization Address [facility] Co de Phone Number [facility] * POCT Glucose (04/17/2014 5:23 PM EST) Glucose, POC 155 60 - 199 mg/dL [facility] Comment: Supplemental ranges: <140 mg/dL before meals <180 mg/dL all other times of the day Blood specimen (specimen) 04/17/2014 5:23 PM EST 04/17/2014 5:23 PM EST Myrna Shepard MD POINT OF CARE TEST ORDERABLES Performing Organization Address [facility] de Phone Number [facility] * POCT Glucose (04/17/2014 2:11 PM EST) Glucose, POC 130 60 - 199 mg/dL [facility] Comment: Supplemental ranges: <140 mg/dL before meals <180 mg/dL all other times of the day Blood specimen (specimen) 04/17/2014 2:11 PM EST 04/17/2014 2:11 PM EST Myrna Shepard MD POINT OF CARE TEST ORDERABLES Performing Organization Address [facility] Phone Number [facility] * (ABNORMAL) Urinalysis with microscopic (04/17/2014 10:35 AM EST) Glucose, Urine Dipstick Negative Negative mg/dL [facility] Protein, Urine Dipstick Negative Negative mg/dL [facility] Bilirubin, Urine Dipstick Negative Negative mg/dL [facility] Comment: Clinical correlation required for positive Urine Bilirubin results as false positive may occur with some drugs and drug related products. If a false positive is suspected a serum total bilirubin should be considered if clinically indicated. Urobilinogen, Urine Dipstick Normal Normal mg/dL [facility] pH, Urn (dipstick) 5.0 5.0 - 8.0 [facility] Blood, Urine Dipstick Negative Negative mg/dL [facility] Ketone, Urine Dipstick Negative Negative mg/dL [facility] Nitrite, Urine Dipstick Negative Negative [facility] Leukocytes, Urine Dipstick Negative Negative mcL [facility] Appearance, Urine Dipstick Clear Clear [facility] Specific [place] Urine Automated 1.021 1.002 - 1.030 [facility] Color, Urine Dipstick Yellow Yellow [facility] RBC, Urine <1 0 - 3 /HPF [facility] WBC, Urine 2 0 - 3 /HPF [facility] Hyaline Casts, Urine 5(H) 0 - 2 /LPF [facility] Urine specimen (specimen) 04/17/2014 10:35 AM EST 04/17/2014 10:51 AM EST Narrative Resulting Agency Comment Spec In Lab Myrna Shepard MD URINE ORDERABLES Performing Organization Address City/[facility] Co de Phone Number [facility] * POCT Glucose (04/17/2014 10:09 AM EST) [facility] Signature Glucose, POC 153 60 - 199 mg/dL [facility] Comment: Supplemental ranges: <140 mg/dL before meals <180 mg/dL all other times of the day Blood specimen (specimen) 04/17/2014 10:09 AM EST 04/17/2014 10:09 AM EST Myrna Shepard MD POINT OF CARE TEST ORDERABLES Performing Organization Address City/[facility] Co de Phone Number [facility] documented in this encounter Visit Diagnoses [...] to induce or maintain moderate sedation per [facility] Moderate Sedation Protocol, For use in the [...] to induce or maintain moderate sedation per [facility] Moderate Sedation Protocol, For use in the [...] 1 tablet, Oral, EVERY 4 HOURS PRN, Pain, Starting on Thu04/17/14 at 1329, Until Thu04/18/14 at 1419, Maximum dose of acetaminophen is 4000 mg from all sources in 24 hours. PRN for pain NOT relieved by ultram Given 04/18/2014 7:36 AM EST 1 tablet [...] Routine 1506 (Given - Provider: Ely Villalpando, NAHUN) 0833 (Given - Provider: Jace Howard [...] 0833 (Given - Provider: Jace Howard RN) metFORMIN [...] Comment: started in SDP)1300 (Stopped - Provider: lEy Villalpando RN) PRN Medication Order 04/16/2014 04/17/2014 04/18/2014 fentaNYL 50mcg/mL injection (CANCELED) 25-50 mcg, Intravenous, EVERY 5 MIN PRN, Starting on Thu04/17/14 at 1019, Until Thu04/17/14 at 1300, Pain, As needed to induce or maintain moderate sedation per [facility] Moderate Sedation Protocol, For use in the [...] to induce or maintain moderate sedation per [facility] Moderate Sedation Protocol, For use in the electrophysiology lab (EP lab) only for procedural sedation with direct provider supervision and verbal order. RASS goal (-)2 to (-)3. Dose not to exceed 1 mg per dose, 5mg/hour, or 0.2mg/kg per case., EP (Intra-Procedure), Routine 1137 (Given - Provider: Cheryle Adan, NAHUN)1141 (Given - Provider: Cheryle Adan, NAHUN)1150 (Given - Provider: Cheryle Adan RN)1203 (Given - Provider: Cheryle Adan RN)1209 (Given - Provider: Cheryle Adan RN)1217 (Given - Provider: Cheryle Adan RN)1223 (Given - Provider: Cheryle Adan RN) oxyCODONE-acetaminophen (PERCOCET) 5-325 mg per tablet 1 tablet 1 tablet, Oral, EVERY 4 HOURS PRN, Pain, Starting on 04/17/14 at 1329, Until Thu04/18/14 at 1419, Maximum dose of acetaminophen is 4000 mg from all sources in 24 hours. PRN for pain NOT relieved by ultram 1451 (Given - Provider: Ely Villalpando, RN)1845 (Given - Provider: Ely Villalpando, RN)2301 (Given - Provider: Tara Thompson, RN) 0333 (Given - Provider: Tara Thompson, RN)0736 (Given - Provider: Jace Howard, RN) documented in this encounter Care Teams Director Of Individual Giving Relationship Specialty Start Date End Date Ángel Bingham MD [facility] [address] [facility] [place] [address] PCP - General 01/31/14 09/01/16 documented as of this encounter
--- OUTSIDE RECORDS SUMMARY | 2024-04-19 15:30 | XMS_ITS | Encounter Summary ---
Author Organization [facility] Address [facility] [place] [address] Care Team Providers Care Implementation Architect Name Role Phone Ángel Bingham MD Primary Care Provider [phone] Encounter Details Date Type Department Care Team (Latest Contact Info) Description 04/10/2014 10:17 AM EST - 04/10/2014 11:59 PM [facility] Hospital Encounter XRay at [address] [place] [address] Pacemaker lead failure, initial encounter Social History [...] times daily. 90 tablet 6 05/14/2013 01/27/2017 [place]-3 Fatty Acids (FISH OIL) 500 mg Cap Take by mouth daily. 01/14/2016 lamotrigine (LAMICTAL) 100 mg tablet Take 200 mg by mouth daily. 09/01/2018 alprazolam (XANAX XR) 3 mg 24 hr tablet Take 3 mg by mouth nightly. 09/18/2020 lactobac cmb #[id number]-uvloxgzyzh (PROBIOTIC & ACIDOPHILUS) 300-250 million cell-mg Cap [...] AM EST Hospital Encounter Non-Invasive [place] [address] Arrived documented as of [...] encounter documented in this encounter Care Teams Implementation Architect Relationship Specialty Start Date End Date Ángel Bingham MD [facility] [address] [place] [address] PCP - General 01/31/14 09/01/16 documented as of this encounter
--- OUTSIDE RECORDS SUMMARY | 2024-04-19 15:30 | XMS_ITS | Encounter Summary ---
Author Organization Formerly [facility] [place] [address] Care Team Providers Care Soft Drink Powder Mixer Name Role Phone Ángel Bingham MD Primary Care Provider Encounter Details Date Type Department Care Team (Latest Contact Info) Description 04/17/2014 1:14 PM EST - 04/18/2014 12:19 PM EST Hospital Encounter [place] [address] José Manuel Fabian MD [facility] [place] [address] Myrna Shepard MD Ventricular tachycardia Discharge Disposition: Home Social History [...] Marquez Hendrix Patient Age: 63 y.o. Language: Belarusian Race: White Ethnicity: Not nor Admit date: 04/17/2014 Discharge date and time: 04/18/2014929 Attending Physician: Myrna Shepard MD Discharge Physician: Jake Shepard MD Follow-up Recommendations for Providers: S/p atrial lead replacement Scheduled for 90 day post implant follow up Inpatient Provider Contact Information: Cardiac Electrophysiology [phone] Discharge Diagnoses (Hospital Problems) and Secondary Diagnoses [...] Treatments: Atrial lead replacement Discharge Exam: Skin: [place], warm and dry HEENT: PERRLA, EOMI, no [...] electrode: Guidant Dextrus Model# 4126-53 cm Serial# [id number] ?? Bipolar, steroid-tipped, active-fixation IS-1 lead ?? Access: Axillary vein ?? Location Right atrial appendage Old Ventricular electrode: [employer] [place] Model# 0292 Serial# [id number] ?? Bipolar, steroid-tipped, active-fixation DF-4 lead ?? Access: Axillary vein ?? Location: Right ventricular apex Old Atrial electrode: Guiddelio Daigles Model# 4136 Serial# [id number] ?? Bipolar, steroid-tipped, active-fixation IS-1 lead ?? Access: Axillary vein ?? Location Removed 04/17/2014 ?? Implanted: 01/10/2014 Pulse generator: [employer] Incepta Model# E162 Serial# [id number] ?? DDDR ICD ?? Location: Subcutaneous DDDR [...] Cap Take by mouth daily. Generic drug: [place]-3 Fatty Acids Refills: 0 glipiZIDE 5 mg [...] by mouth daily. Generic drug: lactobac cmb #[id number] Refills: 0 rosuvastatin 20 mg Tab Commonly [...] a 91 day new device check at [facility]. 4. Remote device follow [...] 07/18/2014 10:00 AM Raul Lopes RN Cardiology [phone] 07/18/2014 10:40 AM Kit Self MD Cardiology [phone] Joint Appt Cardiology Intake, [facility] [phone] Discharge References/Attachments None documented in this encounter Discharge Instructions * Patient Instructions* Edy Torers PA - 04/18/2014 7:57 AM EST Final recommendations: 1. Standard post implant discharge instructions (see below): 2. Resume medications as listed. 3. You will be called to schedule a 91 day new device check at [facility]. 4. Remote device follow [...] times daily. 90 tablet 6 05/14/2013 01/27/2017 [place]-3 Fatty Acids (FISH OIL) 500 mg Cap Take by mouth daily. 01/14/2016 lamotrigine (LAMICTAL) 100 mg tablet Take 200 mg by mouth daily. 09/01/2018 alprazolam (XANAX XR) 3 mg 24 hr tablet Take 3 mg by mouth nightly. 09/18/2020 [id number] (PROBIOTIC & ACIDOPHILUS) 300-250 million cell-mg Cap [...] AM EST Office of Care Management Clinical Sanitation Worker Cleaning Equipment Patient Name: Marquez Hendirx : 1950, 63 yrs Admission Date: 04/17/2014 1:14 PM Attending: Myrna Shepard MD Order to Admit: Record reviewed and patient discussed with multidisciplinary team. Insurance: [employer] Processing Medical/Surgical: Pt admitted for atrial lead replacement [...] electrode: Guidant Dextrus Model# 4126-53 cm Serial# [id number] ?? Bipolar, steroid-tipped, active-fixation IS-1 lead ?? Access: Axillary vein ?? Location Right atrial appendage Old Ventricular electrode: [employer] [place] Model# 0292 Serial# [id number] ?? Bipolar, steroid-tipped, active-fixation DF-4 lead ?? Access: Axillary vein ?? Location: Right ventricular apex Old Atrial electrode: Guidant Dextrus Model# 4136 Serial# [id number] ?? Bipolar, steroid-tipped, active-fixation IS-1 lead ?? Access: Axillary vein ?? Location Removed 04/17/2014 ?? Implanted: 01/10/2014 Pulse generator: [place] [employer] Incepta Model# E162 Serial# [id number] ?? DDDR ICD ?? Location: Subcutaneous DDDR [...] Outcome (s) achieved Date Met: 04/18/14 04/17/14 13504/17/14163504/17/141934 Mutuality/Individual Preferences What anxieties, fears or concerns [...] Ongoing (Interventions Implemented as Appropriate) 04/17/14 1945 Safety Interventions Isolation Precautions standard precautions maintained [...] medication given as ordered. Remained on bedside quality assurance monitor body in SB 55, paced rhythm. Denies chest [...] Review Outcome: Ongoing (Interventions Implemented as Appropriate) 04/17/141352 Coping/Psychosocial Response Interventions Plan of Care Reviewed with patient Plan of Care Review Plan of Care Outcome Status ongoing (interventions implemented as appropriate) Progress progress toward functional goals as expected OUTCOME EVALUATION NOTE: OUTCOME SUMMARY: Patient admitted to [facility] via bed from EP lab. Is alert [...] AM EST Hospital Encounter Non[place] [address] Arrived documented as of this encounter Procedures [...] Glucose, POC 140 60 - 199 mg/dL [facility] Comment: Supplemental ranges: <140 mg/dL before [...] Glucose, POC 126 60 - 199 mg/dL [facility] Comment: Supplemental ranges: <140 mg/dL before meals <180 mg/dL all other times of the day Blood specimen (specimen) 04/18/2014 3:32 AM EST 04/18/2014 3:32 AM EST Myrna Shepard MD POINT OF CARE TEST ORDERABLES Performing Organization Address [facility] Co de Phone Number [facility] * POCT Glucose (04/18/2014 12:08 AM EST) Glucose, POC 113 60 - 199 mg/dL [facility] Comment: Supplemental ranges: <140 mg/dL before meals <180 mg/dL all other times of the day Blood specimen (specimen) 04/18/2014 12:08 AM EST 04/18/2014 12:08 AM EST Myrna Shepard MD POINT OF CARE TEST ORDERABLES Performing Organization Address [facility] de Phone Number [facility] * POCT Glucose (04/17/2014 9:53 PM EST) Glucose, POC 120 60 - 199 mg/dL [facility] Comment: Supplemental ranges: <140 mg/dL before meals <180 mg/dL all other times of the day Blood specimen (specimen) 04/17/2014 9:53 PM EST 04/17/2014 9:53 PM EST Myrna Shepard MD POINT OF CARE TEST ORDERABLES Performing Organization Address [facility] Co de Phone Number [facility] * POCT Glucose (04/17/2014 8:03 PM EST) Glucose, POC 169 60 - 199 mg/dL [facility] Comment: Supplemental ranges: <140 mg/dL before meals <180 mg/dL all other times of the day Blood specimen (specimen) 04/17/2014 8:03 PM EST 04/17/2014 8:03 PM EST Myrna Shepard MD POINT OF CARE TEST ORDERABLES Performing Organization Address City/[facility]/ZIP Co de Phone Number [facility] * POCT Glucose (04/17/2014 5:23 PM EST) Glucose, POC 155 60 - 199 mg/dL [facility] Comment: Supplemental ranges: <140 mg/dL before meals <180 mg/dL all other times of the day Blood specimen (specimen) 04/17/2014 5:23 PM EST 04/17/2014 5:23 PM EST Myrna Shepard MD POINT OF CARE TEST ORDERABLES Performing Organization Address [facility] Co de Phone Number [facility] * POCT Glucose (04/17/2014 2:11 PM EST) Glucose, POC 130 60 - 199 mg/dL [facility] Comment: Supplemental ranges: <140 mg/dL before meals <180 mg/dL all other times of the day Blood specimen (specimen) 04/17/2014 2:11 PM EST 04/17/2014 2:11 PM EST Myrna Shepard MD POINT OF CARE TEST ORDERABLES Performing Organization Address [facility] Co de Phone Number [facility] * (ABNORMAL) Urinalysis with microscopic (04/17/2014 10:35 [...] Urine Dipstick Clear Clear [facility] Specific [place] Urine Automated 1.021 1.002 - 1.030 [facility] [...] Shepard MD URINE ORDERABLES Performing Organization Address [facility]/ZIP Co de Phone Number [facility] * POCT Glucose (04/17/2014 10:09 AM EST) Glucose, POC 153 60 - 199 mg/dL [facility] Comment: Supplemental ranges: <140 mg/dL before meals <180 mg/dL all other times of the day Blood specimen (specimen) 04/17/2014 10:09 AM EST 04/17/2014 10:09 AM EST Myrna Shepard MD POINT OF CARE TEST ORDERABLES Performing Organization Address [facility] Co de Phone Number [facility] documented in this encounter Visit Diagnoses Diagnosis Ventricular tachycardia Paroxysmal ventricular tachycardia documented in this encounter Administered Medications Inactive Administered Medications - up to 3 most recent administrations Medication Order MAR Action Action Date Dose Rate Site aspirin EC tablet 81 mg 81 mg, Oral, DAILY, First dose on 04/17/14 at 1500, Until Discontinued, Routine Given 04/18/2014 [...] to induce or maintain moderate sedation per [facility] Moderate Sedation Protocol, For use in the [...] to induce or maintain moderate sedation per [facility] Moderate Sedation Protocol, For use in the [...] Discontinued, Routine 1506 (Given - Provider: Ely Villalpando RN) 0833 [...] Unit), Indication for (Active or Suspected): Prophylaxis 183 (Given - Provider: Ely Villalpando, NAHUN) 0308 [...] Discontinued, Routine 1414 (Given - Provider: Ely Villalpando, NAHUN) 0833 (Given - Provider: Jace Howard, RN) glipiZIDE (GLUCOTROL) CR tablet 5 mg (CANCELED) 5 mg, Oral, DAILY, First dose on Thu04/18/14 at 0900, Until Discontinued, Routine 0833 (Given - Provider: Jace Howard, RN) insulin aspart (novoLOG) VIAL injection 1-4 [...] to induce or maintain moderate sedation per [facility] Moderate Sedation Protocol, For use in the [...] to induce or maintain moderate sedation per [facility] Moderate Sedation Protocol, For use in the [...] ultram 1451 (Given - Provider: Ely Villalpando, NAHUN)1845 (Given - Provider: Ely Villalpando, RN)2301 (Given - Provider: Tara Thompson, RN) 0333 (Given - Provider: Tara Thompson, RN)0736 (Given - Provider: Jace Howard, RN) documented in this encounter Care Teams Soft Drink Powder Mixer Relationship Specialty Start Date End Date Ángel Bingham MD [facility] [address] [place] [address] PCP - General 01/31/14 09/01/16 documented as of this encounter
--- OUTSIDE RECORDS SUMMARY | 2024-04-19 15:30 | XMS_ITS | Encounter Summary ---
Author Organization [facility] [place] [address] Care Team Providers Care Specialty Finishing Utility Person Name Role Phone Ángel Bingham MD Primary Care Provider [phone] Reason for Visit * Reason Onset Date Comments Medication Refill 02/03/2014 Encounter Details Date Type Department Care Team (Late st Contact Info) Description 02/03/2014 Refill Cardiology at [address] [address] Kit Self MD [facility] [place] [address] Medication Refill Social History Tobacco Use Types [...] AM EST Hospital Encounter Non[place] [phone] Arrived documented as of this encounter Visit Diagnoses Not on filedocumented in this encounter Care Teams Specialty Finishing Utility Person Relationship Specialty Start Date End Date Ángel Bingham MD [facility] [address] [place] [address] PCP - General 01/31/14 09/01/16 documented as of this encounter
--- OUTSIDE RECORDS SUMMARY | 2024-04-19 15:30 | XMS_ITS | Encounter Summary ---
Author Organization [facility] Address [facility] [place] [address] Care Team Providers Care Assurance Sourcing Manager Name Role Phone Ángel Bingham MD Primary Care Provider [phone] Reason for Visit * Reason Onset Date Comments Other 03/08/2014 ? stop plavix Encounter Details Date Type Department Care Team (Late st Contact Info) Description 03/08/2014 Telephone Cardiology at [address] [address] Kit Self MD [facility] [place] [address] Other (? stop plavix) Social History Tobacco [...] call having Bilateral L4-L5 MBB done at [facility]. There is a question about Stopping medication prior to this procedure. I called the number provided by the patient and had to leave a message as they close at 4:00. I will call back tomorrow. [phone] Thank you, Daphney documented in this encounter Plan of Treatment Upcoming Encounters Date Type Department Care Team (Late st Contact Info) Description 06/15/2024 10:00 AM EST Hospital Encounter Non[place] [phone] Arrived documented as of this encounter Visit Diagnoses Not on filedocumented in this encounter Care Teams Assurance Sourcing Manager Relationship Specialty Start Date End Date Ángel Bingham MD [facility] [address] [facility] [place] [address] PCP - General 01/31/14 09/01/16 documented as of this encounter
--- OUTSIDE RECORDS SUMMARY | 2024-04-19 15:30 | XMS_ITS | Encounter Summary ---
Author Organization [facility] Address [facility] [place] [address] Care Team Providers Care B2B Sales Professional Name Role Phone Ángel Bingham MD Primary Care Provider [phone] Reason for Visit * Reason Comments Pacemaker Problem Encounter Details Date Type Department Care Team (Late st Contact Info) Description 04/10/2014 10:40 AM EST Follow-Up Cardiology at [address] [phone] Edy Torres PA [facility] [place] [address] Atrial pacemaker lead displacement, initial encounter Discharge [...] coordinate schedule: Please call EP scheduling at [phone] documented in this encounter Progress Notes * Edy Torres PA - 04/10/2014 11:04 AM EST Images from the original note were not included. Subjective: Patient ID: Marquez Hendrix is a 63 y.o. male. HPI Asked by Raul Lopes RN to evaluate Mr Hendrix who presented for ICD follow up after 01/10/2014 dualchamber [place] [employer] ICD implant and was found to [...] 2 times daily. 90 tablet 6 ??? [place]-3 Fatty Acids (FISH OIL) 500 mg Cap [...] mouth every morning. ? ? lactobac cmb #[id number] (PROBIOTIC & ACIDOPHILUS) 300-250 million cell- mg [...] diaphoretic. Vitals reviewed. Device Data: Ventricular electrode: [place] [employer] [place] Model# 0292 Serial# [id number] ?? Bipolar, steroid-tipped, active-fixation, single coil DF-4 lead ?? Access: Left axillary vein ?? Location: RV apex Atrial electrode: [place] [employer] Dextrus Model# 4136 Serial# [id number] ?? Bipolar, steroid-tipped, active-fixation IS-1 lead ?? Access: Left axillary vein ?? Location Right atrial appendage Pulse generator: [employer] Incepta Model# E162 Serial# [id number] DDDR ICD ?? Location: Subcutaneous Defibrillation testing [...] without the operation Provider: MAXIMO Leija Provider#: [id number] Consult attending physician: Vamshi Hernandez MD documented in this encounter H&P Notes * Edy Torres PA - 04/10/2014 11:28 AM EST See progress note. documented in this encounter Plan of Treatment Upcoming Encounters Date Type Department Care Team (Late st Contact Info) Description 06/15/2024 10:00 AM EST Hospital Encounter Non-Invasive [place] [address] Arrived documented as of this encounter Visit Diagnoses Diagnosis Atrial pacemaker lead displacement, initial encounter documented in this encounter Care Teams B2B Sales Professional Relationship Specialty Start Date End Date Ángel Bingham MD [facility] [address] [place] [address] PCP - General 01/31/14 09/01/16 documented as of this encounter
--- OUTSIDE RECORDS SUMMARY | 2024-04-19 15:30 | XMS_ITS | Encounter Summary ---
Author Organization [facility] Address [facility] [place] [address] Care Team Providers Care Investor Relations Associate Name Role Phone Ángel Bingham MD Primary Care Provider [phone] Encounter Details Date Type Department Care Team (Late st Contact Info) Description 04/12/2014 Orders Only Cardiology at [address] [phone] Edy Torres, PA [facility] [place] [address] Pacemaker lead malfunction, subsequent encounter Social History [...] AM EST Hospital Encounter Non-[place] [phone] Arrived documented as of this encounter Procedures [...] silk. Final Parameters: New Atrial electrode: ?? Guidant Dextrus ??Model# 4126-53 cm Serial# [id number] ? Bipolar, steroid-tipped, active-fixation IS-1 lead ? [...] 10 V: ??No Old Ventricular electrode: ?? [place] [employer] [place] Model# 0292 Serial# [id number] ? Bipolar, steroid-tipped, active-fixation DF-4 lead ? [...] 510 ohms Old Atrial electrode: ?? Diego Daigles Model# 4136 Serial# [id number] ? Bipolar, steroid-tipped, active-fixation IS-1 lead ? Access: ? Axillary vein ? Location ? Removed 04/17/2014 ? Implanted: ?01/10/2014 Pulse generator: ?? [place] [employer] Incepta Model# E162 Serial# [id number] ?? ? DDDR ICD ? Location: ?Subcutaneous [...] encounter documented in this encounter Care Teams Investor Relations Associate Relationship Specialty Start Date End Date Ángel Bingham MD [facility] [address] [place] [address] [place] [address] PCP - General 01/31/14 09/01/16 documented as of this encounter
--- OUTSIDE RECORDS SUMMARY | 2024-04-19 15:30 | XMS_ITS | Encounter Summary ---
Author Organization [facility] [place] [address] Care Team Providers Care Machine Operator Farmworker Name Role Phone Ángel Bingham MD Primary Care Provider [phone] Encounter Details Date Type Department Care Team (Late st Contact Info) Description 04/10/2014 Orders Only Cardiology at [address] [phone] Edy Torres PA [facility] [place] [address] Pacemaker lead failure, initial encounter Social History [...] Hospital Encounter Non-[place] [phone] Arrived documented as of this encounter Results [...] dislodged. No other intervalfindings. Lars Hernandez DO [facility] DX ORDERABLES documented in this encounter Visit Diagnoses Diagnosis Pacemaker lead failure, initial encounter Pacemaker lead failure, initial encounter documented in this encounter Care Teams Machine Operator Farmworker Relationship Specialty Start Date End Date Ángel Bingham MD [facility] [address] [place] [address] PCP - General 01/31/14 09/01/16 documented as of this encounter
--- OUTSIDE RECORDS SUMMARY | 2024-04-19 15:30 | XMS_ITS | Encounter Summary ---
Author Organization [facility] [place] [address] Care Team Providers Care Survey Associate Name Role Phone Ángel Bingham MD Primary Care Provider [phone] Encounter Details Date Type Department Care Team (Latest Contact Info) Description 01/31/2014 10:40 AM EDT Office Visit Cardiology at [address] [address] Kit Self MD [facility] [place] [address] ASCVD (arteriosclerotic cardiovascular disease); Sustained ventricular tachycardia [...] from the original note were not included. [facility] [place] [address] CARDIOLOGY OUTPATIENT FOLLOW-UP NOTE Marquez Hendrix [id number] PCP: ÁNGEL BINGHAM MD 01/31/2014 PRIMARY CARE PROVIDER: ÁNGEL BINGHAM MD PROBLEM LIST: Patient Active Problem List Diagnosis ??? ASCVD (arteriosclerotic cardiovascular disease) ?? Heart catheterization in [facility] in 2007 with placement of a stent in an unspecified vessel ?? Repeat heart catheterization in 2008 with placement of stents to both the LAD and circumflex ?? Followup heart catheterization in 2008 showing stable results in both vessels ?? Her current chest discomfort in a somewhat atypical pattern beginning fall ?? Nuclear stress test at [facility] in [place], [place] May 02, 2013 during which he developed left shoulder and arm discomfort during submaximal exercise on the treadmill and after which he was converted to a pharmacologic test; nuclear imaging showed ejection fraction of 45% with a partially reversible inferior defect ?? Cath [facility] 05/13/2013: normal left main, mild diffuse disease throughout the LAD with an 80% mid stenosis representing a restenosis lesion, mild diffuse disease in the proximal obtuse marginal branch, and mild diffuse disease throughout the right coronary artery; status post 3.0 X 12 mm JON to 80%mid-LAD lesion (in-stent restenosis) ?? Heart catheterization [facility] January 06, 2014 showing normal left main, hazy 50% mid LAD stenosis, mild diffuse disease throughout the circumflex, and moderate diffuse disease in the proximal RCA with a totally occluded distal RCA with brisk flow via bridging collaterals; fractional flow reserveon the LAD 0.85 ??? ICD (implantable cardioverter-defibrillator), dual, in situ Ventricular electrode: [place] [employer] [place] Model# 0292 Serial# [id number] Bipolar, steroid-tipped, active-fixation, single coil DF-4 lead Access: Left axillary vein Location: RV apex R wave, ICD: 9.6 mV Pacing threshold, ICD: 0.6 V at 0.5 ms Impedance, ICD: 913 ohms (74 ohms for shock vector) Pace the diaphragm at 10 V: No Atrial electrode: [employer] Dextrus Model# 4136 Serial# [id number] Bipolar, steroid-tipped, active-fixation IS-1 lead Access: Left axillary vein Location Right atrial appendage P wave, ICD: 4.3 mV Pacing threshold, pacemaker: 1.7 V at 0.5 ms Impedance, pacemaker: 538 ohms Pace the diaphragm at 10 V: No Pulse generator: [employer] Incepta Model# E162 Serial# [id number] DDDR ICD Location: Subcutaneous Defibrillation testing was [...] 2 times daily. 90 tablet 6 ??? [place]-3 Fatty Acids (FISH OIL) 500 mg Cap Take by mouth daily. ??? multivitamin capsule Take 1 capsule by mouth daily. ??? LANCETS MISC by Misc.(Non-Drug; Combo Route) route. ??? lamotrigine (LAMICTAL) 100 mg tablet Take 100 mg by mouth daily. ??? alprazolam (XANAX XR) 3 mg 24 hr tablet Take 3 mg by mouth every morning. ? ? lactobac cmb #3-[id number]-[id number] (PROBIOTIC & ACIDOPHILUS) 300-250 million cell- mg [...] while taking a hike. He presented to [facility] where he was found to bein ventricular tachycardia with a heart rate in the 160s and a borderline low blood pressure 108/64. He was sedated and cardioverted successfully. Unfortunately, he remembers the shock. He was transferred to [facility] where his evaluation included [...] his fatigue, this is a potential beta costa side effect. He has apparently had similar [...] [facility] [place] [address] Arrived documented as of this encounter Visit Diagnoses Diagnosis ASCVD (arteriosclerotic cardiovascular disease) Unspecified cardiovascular disease Sustained ventricular tachycardia Paroxysmal ventricular tachycardia documented in this encounter Care Teams Survey Associate Relationship Specialty Start Date End Date Ángel Bingham MD [facility] [address] [place] [address] PCP - General 01/31/14 09/01/16 documented as of this encounter
--- OUTSIDE RECORDS SUMMARY | 2024-04-19 15:30 | XMS_ITS | Encounter Summary ---
Author Organization [facility] [address] Care Team Providers Care Kindergarten Tutor Name Role Phone Ángel Bingham MD Primary Care Provider [phone] Encounter Details Date Type Department Care Team (Late st Contact Info) Description 02/02/2014 Telephone Cardiology at [address] [phone] Lisbeth Huff, RN Social History Tobacco Use [...] prescription in to the [facility] in [facility]. Thank you, Daphney * Telephone Encounter [...] st Contact Info) Description 06/15/2024 10:[address] [facility] Hospital Encounter [place] [phone] Arrived documented as of this encounter Visit Diagnoses Not on filedocumented in this encounter Care Teams Kindergarten Tutor Relationship Specialty Start Date End Date Ángel Bingham MD [facility] [address] [facility] [place] [address] PCP - General 01/31/14 09/01/16 documented as of this encounter
--- OUTSIDE RECORDS SUMMARY | 2024-04-19 15:31 | XMS_ITS | Encounter Summary ---
[facility] Organization [facility] [place] [address] Care Team Providers Care Hat Blocker Name Role Phone Jennifer Haro MD Primary Care Provider [phone] Encounter Details Date Type Department Care Team (Latest Contact Info) Description 01/06/2014 1:50 AM EDT - 01/11/2014 1:38 PM EDT Hospital Encounter Intermediate [place] [address] Kenia Bauman MD [facility] [place] [id number] ASCVD (arteriosclerotic cardiovascular disease); Non-ST elevation myocardial [...] a 91 day new device check at [facility] EP Device Clinic. 4. Transtelephonic device follow [...] Center 02/07/2014 8:10 AM Kit Self MD [facility] Cardio [facility] Follow-Up Appointments Date and Time Provider and Specialty Location Jan 13, 2014 @ 2:[address] Bingham [facility] Your Inpatient Doctor: Kenia Bauman MD Your Primary Care Provider: JENNIFER HARO MD [phone] For questions regarding this document or issues relating to this hospitalization on the Medical Service, please contact your inpatient physician through the [facility] Regional Transportation Manager . Issues afterhours and on weekends will [...] times daily. 90 tablet 6 05/14/2013 01/27/2017 [place]-3 Fatty Acids (FISH OIL) 500 mg Cap Take by mouth daily. 01/14/2016 lamotrigine (LAMICTAL) 100 mg tablet Take 200 mg by mouth daily. 09/01/2018 alprazolam (XANAX XR) 3 mg 24 hr tablet Take 3 mg by mouth nightly. 09/18/2020 lactobac cmb #[id number]-hponnivrsv (PROBIOTIC & ACIDOPHILUS) 300-250 million cell-mg Cap [...] answered at this time. Patient discharged to [facility] with Daughter in stable condition. Wheelchair offered; patient elected to walk. * Edy Torres PA - 01/11/2014 12:10 PM EDT Patient Name: Shahnaz Santiago Patient Age: 63 y.o. Birthdate: 1950 Admit date: 01/06/2014 Attending Physician: Kenia Bauman MD Cardiac Electrophysiology Post-Iimplant Device Interrogation Note Shahnaz Santiago is a 63 y.o. male is POD # 1 following implant of a dual chamber, [employer] ICD for sustained ventricular tachycardia. He [...] in situ V45.02 Device data: Ventricular electrode: [employer] [place] Model# 0292 Serial# [id number] Bipolar, steroid-tipped, active-fixation, single coil DF-4 lead Access: Left axillary vein Location: RV apex R wave, ICD: 9.6 mV Pacing threshold, ICD: 0.6 V at 0.5 ms Impedance, ICD: 913 ohms (74 ohms for shock vector) Pace the diaphragm at 10 V: No Atrial electrode: [employer] Dextrus Model# 4136 Serial# [id number] Bipolar, steroid-tipped, active-fixation IS-1 lead Access: Left axillary vein Location Right atrial appendage P wave, ICD: 4.3 mV Pacing threshold, pacemaker: 1.7 V at 0.5 ms Impedance, pacemaker: 538 ohms Pace the diaphragm at 10 V: No Pulse generator: [employer] Incepta Model# E162 Serial# [id number] DDDR ICD Location: Subcutaneous Defibrillation testing was [...] ~ 91 days. Provider: MAXIMO Leija Provider#: [id number] Consult attending physician: Estefanía Cross MD * Raul Salmeron RN - 01/11/2014 8:04 AM EDT Inpatient Post ICD Implant Teaching Note Verbal teaching was performed today vwck-ks-mssy with the patient including the following: -Brief generalized teaching of how ICDs function, and the patient's specific indication for ICD implant -Activity restrictions post ICD implant -Remote monitoring of the ICD via telephone (patient was given [facility] Latitude communicator today). -ICD insertion site wound [...] 2 stents in LAD and LCx 2008, JNO to LAD for instent restenosis 04/2013, T2DM, [...] ICD placement today. Pt is insured with [employer] ([place]). No discharge needs identified at this time. Will continue to follow for coordination of care and discharge planning. Nora Schaeffer ICE CREAM SHOP ASSOCIATE CRC/Stacy GUO BSN RN [facility] Office of Care Managment Pager [phone] * Yamile Raya RN - 01/10/2014 6:30 [...] One episode 7 beat run VT ~150bpm. [place] warm, needed to urinate during that time. [...] JULIET Continuous Infusions: ??? bivalirudin Stopped (01/06/14 7493) ??? adenosine Stopped (01/06/14 154) PRN Meds:.potassium [...] Code Status: Full Code EDIE JENSEN FLORES, Cardiology S1 (pgr. [id number]) Cardiology Attending [...] in to convince him not to leave [facility] without an ICD. Will await his decision. [...] Jennifer Harris - 01/06/2014 4:24 PM EDT Transmission Inspector Encounter Note Patient Name: Shahnaz Santiago DOB: [id number] MR#: [id number] Admit Date: 01/06/2014 1:50 AM Hospital Day 0 days Narrative: Shahnaz was happy and open to outreach director visit. Assessment: We had a long conversation of what he considered that has been militating against a health life-style: smoking. Moreover he was not a anglican person based on his experiences over the years yet accepts prayers. Intervention and Outcome: We prayed for God's healing & strength. Follow-up: Yes Time in Direct Care: 35 mins Jennifer Zimmer Steven 01/06/2014 * Stacy Pabon RN - 01/06/2014 2:17 PM EDT Office of Care Management Clinical Senior Ruby Developer Patient Name: Shahnaz Santiago : 1950, 63 yrs Admission Date: 01/06/2014 1:50 AM Attending: Kenia Bauman MD Order to Admit: Signed Record reviewed and patient discussed with multidisciplinary team. Lives in [place], [place] 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 He is independent and drives. Insurance: No Insurance. (Guillermo Aaron VETERINARY ANATOMIST notified) [facility] in [facility] Medical/Surgical:63 yo man with ASCVD s/p [...] Pabon MSN RN Clinical Resource Coordinators Phone: [phone] Pager [phone] documented in this encounter H&P Notes * Edy Berry MD - 01/07/2014 5:02 PM EDT Inpatient Cardiac Electrophysiology Follow-up Note Date of Consultation: 01/07/2014 Admit Date: 01/06/2014 Place of Service: Inpatient Unit Reason for Consult: We are seeing Shahnaz Santiago for the evaluation of ventricular tachycardia Patient Active Problem List Diagnosis ??? ASCVD (arteriosclerotic cardiovascular disease) Overview Note: ?? Heart catheterization in [facility] in 2007 with placement of a stent in an unspecified vessel ?? Repeat heart catheterization in 2008 with placement of stents to both the LAD and circumflex ?? Followup heart catheterization in 2008 showing stable results in both vessels ?? Her current chest discomfort in a somewhat atypical pattern beginning fall ?? Nuclear stress test at [facility] in [place], [place] May 02, 2013 during which he developed left shoulder and arm discomfort during submaximal exercise on the treadmill and after which he was converted to a pharmacologic test; nuclear imaging showed ejection fraction of 45% with a partially reversible inferior defect ?? Cath [facility] 05/13/2013: normal left main, mild [...] ASCVD (PCI to Cx, LAD; no hx DC) and tobacco use. [place] recently had a [...] the next morning, and he went to [facility], where ECG showed VT. He was cardioverted with return to NSR with 1st degree AVB, sub-mm STD in the lateral leads. His troponin was indeterminate. The patient was transferred to the [facility] CVCC, where he has remained in NSR. [...] mg by mouth 2 times daily. ??? [place]-3 Fatty Acids (FISH OIL) 500 mg Cap Take by mouth daily. ??? multivitamin capsule Take 1 capsule by mouth daily. ??? LANCETS MISC by Misc.(Non-Drug; Combo Route) route. ??? lamotrigine (LAMICTAL) 100 mg tablet Take 100 mg by mouth daily. ??? alprazolam (XANAX XR) 3 mg 24 hr tablet Take 3 mg by mouth every morning. ? ? lactobac cmb #2-fmd-aqumsqmnpj (PROBIOTIC & ACIDOPHILUS) 300-250 million cell- mg [...] of cardiac arrest, pt believes due to DC at age of 53. Heavy smoker. His mother had PVD. 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 Heart catheterization in [facility] in 2007 with placement of a stent in an unspecified vessel ?? Repeat heart catheterization in 2008 with placement of stents to both the LAD and circumflex ?? Followup heart catheterization in 2008 showing stable results in both vessels ?? Her current chest discomfort in a somewhat atypical pattern beginning fall ?? Nuclear stress test at [facility] in [place], [place] May 02, 2013 during which he developed left shoulder and arm discomfort during submaximal exercise on the treadmill and after which he was converted to a pharmacologic test; nuclear imaging showed ejection fraction of 45% with a partially reversible inferior defect ?? Cath [facility] 05/13/2013: normal left main, mild [...] ASCVD (PCI to Cx, LAD; no hx DC) and tobacco use. [place] recently had a JON placed to the [...] the next morning, and he went to [facility], where ECG showed VT. He was cardioverted with return to NSR with 1st degree AVB, sub-mm STD in the lateral leads. His troponin was indeterminate. The patient was transferred to the [facility] CV[facility], where he has remained in NSR. [...] mg by mouth 2 times daily. ??? [place]-3 Fatty Acids (FISH OIL) 500 mg Cap Take by mouth daily. ??? multivitamin capsule Take 1 capsule by mouth daily. ??? LANCETS MISC by Misc.(Non-Drug; Combo Route) route. ??? lamotrigine (LAMICTAL) 100 mg tablet Take 100 mg by mouth daily. ??? alprazolam (XANAX XR) 3 mg 24 hr tablet Take 3 mg by mouth every morning. ? ? lactobac cmb #6-tcb-pesjqwqzur (PROBIOTIC & ACIDOPHILUS) 300-250 million cell- mg [...] of cardiac arrest, pt believes due to DC at age of 53. Heavy smoker. His mother had PVD. 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 He should ideally check pulse for any recurrent symptoms of VT (e.g. Weakness, SOB) and not delay hospital presentation as he did this time. Will discuss more with him in AM. * Kenia Bauman MD - 01/06/2014 2:45 AM EDT Cardiology Admission History and Physical Patient Name: Shahnaz Santiago Service: [address] Responsible Attending: Kenia Bauman MD, MD PCP: JENNIFER HARO MD PCP phone #: [phone] ID/Chief Complaint: 63 yo man with ASCVD [...] a chronic, has beenaffecting him 20 years, swxvudvzg-eh-gtwtxpkwvk, sternally located discomfort that is constant and [...] rhythm with a 1st degree AV block DC of 214ms, as well as new T-wave inversions and sub 1mm ST depressions in V3-V6. His troponin was an indeterminate value 0.13 (0.06-0.59 =indeterminate). The patient was then transferred to [facility]. , OSH labs prior to transfer: 15.2 [...] cardiovascular disease) ?? Heart catheterization in [facility] in 2007 with placement of a stent in an unspecified vessel ?? Repeat heart catheterization in 2008 with placement of stents to both the LAD and circumflex ?? Followup heart catheterization in 2008 showing stable results in both vessels ?? Her current chest discomfort in a somewhat atypical pattern beginning fall ?? Nuclear stress test at [facility] in [place], [place] May 02, 2013 during which he developed left shoulder and arm discomfort during submaximal exercise on the treadmill and after which he was converted to a pharmacologic test; nuclear imaging showed ejection fraction of 45% with a partially reversible inferior defect ?? Cath [facility] 05/13/2013: normal left main, mild [...] Cap Take by mouth daily. Generic drug: [place]-3 Fatty Acids Refills: 0 glipiZIDE 5 mg [...] by mouth daily. Generic drug: lactobac cmb #0-ugb-vyvsskvoqh Refills: 0 rosuvastatin 20 mg Tab Commonly [...] ischemia Kalyan Babb, PGY-2 Team Pager # [phone] Cardiology Attending Addendum I have interviewed and examined the patient, reviewed the available data, and have discussed my findings, assessment and plan with the patient and the S1 team on CVCC rounds today. I agree with Dr. Bbab's note as above. Furthermore, cardiac enzymes were [...] 01/12/2014 11:50 AM EDTAssociated Order(s): SCAN DOC: FRONT OF HOUSE MANAGER documented in this encounter Miscellaneous Notes * [...] a chronic, has beenaffecting him 20 years, oxnvbirfg-rf-poxdrdlehh, sternally located discomfort that is constant and [...] rhythm with a 1st degree AV block DC of 214ms, as well as new T-wave inversions and sub 1mm ST depressions in V3-V6. His troponin was an indeterminate value 0.13 (0.06-0.59 =indeterminate). The patient was then transferred to [facility]. Hospital Course: # Ventricular tachycardia The patient [...] for an in-stent thrombosis (04/2013), an ischemic bottom hoop driver of his arrhythmia was a strong [...] and Lab Data: Recent Labs Basename 01/11/14 03501/10/14 04201/09/14 0432 01/08/14 0703 01/07/14 0340 WBC 10.8* [...] (CL) of 1070 ms were as follows: DC: 230 ms HV: 40 ms (?) QRS: 110 ms (no manifest pre-excitation) QT: 450 ms 2) Atrial overdrive pacing (10 mA @ 2 ms) was accomplished from the low right atrium, and the atrioventricular (AV) Wenckebach block CL was observed at 500 ms. There was no pre-excitation or conduction aberrancy identified. The vmaehcvj-by-FPN < QRS-QRS just prior to the observed [...] Cap Take by mouth daily. Generic drug: [place]-3 Fatty Acids Refills: 0 glipiZIDE 5 mg [...] by mouth daily. Generic drug: lactobac cmb #5-cpk-nletmighsh Refills: 0 rosuvastatin 20 mg Tab Commonly known as: CRESTOR Take 20 mg by mouth daily. 20 mg Refills: 0 STOPPED Medications lisinopril-hydrochlorothiazide 10-12.5 mg Tab Commonly known as: PRINZIDE;ZESTORETIC nadolol 20 mg Tab Commonly known as: CORGARD nortriptyline 50 mg Cap Commonly known as: PAMOMAYRA Peoples Allergies/ADRs: Allergies Allergen Reactions ??? Tape [...] Center 02/07/2014 8:10 AM Kit Self MD [facility] Cardio [facility] Follow-Up Appointments Date and Time Provider and Specialty Location Jan 13, 2014 @ 2:[address] Zachery Torres [facility] Your Inpatient Doctor: Kenia Bauman MD Your Primary Care Provider: JENNIFER HARO MD [phone] For questions regarding this document or issues relating to this hospitalization on the Medical Service, please contact your inpatient physician through the [facility] Regional Transportation Manager . Issues afterhours and on weekends will be handled by the Hospitalist staff on-call. Future Appointments and Orders Future Appointments: Provider: Department: Dept Phone: Center: 02/07/2014 8:10 AM Kit Self MD Cardiology [phone] [facility] Joint Appt Nurse One Cardiology NAHUN Corrales 4A [phone] [facility] 04/10/2014 9:30 AM Raul Salmeron RN Cardiology [phone] [facility] For questions regarding this document or issues relating to this hospitalization on the Medical Service, please contact your inpatient physician through the [facility] Regional Transportation Manager . Issues afterhours and on weekends will be handled by the Venture Capitalist staff on-call. Signed: KENIA BAUMAN MD * [...] in the out pt CR program at [facility]. He was admitted with LLOYD and VT. Cardiac cath showed no ischemic etiology of sx. Being considered for ICD. Will refer him back to the [facility] prog at discharge * Miscellaneous - Provider, Scanning - 01/07/2014 2:41 PM EDT * Op Note - José Manuel Cole MD - 01/06/2014 5:34 PM EDT Electrophysiology Study Regional Transportation Manager: José Manuel Cole MD Indication: Ventricular tachycardia [...] (CL) of 1070 ms were as follows: DC: 230 ms HV: 40 ms (?) QRS: 110 ms (no manifest pre-excitation) QT: 450 ms 2) Atrial overdrive pacing (10 mA @ 2 ms) was accomplished from the low right atrium, and the atrioventricular (AV) Wenckebach block CL was observed at 500 ms. There was no pre-excitation or conduction aberrancy identified. The fctmhonv-rn-GGU < QRS-QRS just prior to the observed [...] AM EST Hospital Encounter Non[place] [address] Arrived documented as of this encounter Procedures Procedure Name Priority Date/Time Associated Diagnosis Comments FRONT OF HOUSE MANAGER SCAN 01/12/2014 11:50 AM EDT POCT GLUCOSE Routine 01/11/2014 11:55 AM EDT XR CHEST PA AND LATERAL Routine 01/12/20 14 8:24 AM EDT POCT GLUCOSE Routine 01/11/2014 8:03 AM EDT HEMOGRAM Routine 01/11/2014 3:56 AM EDT DIFFERENTIAL, AUTOMATED Routine 01/12/20 14 3:56 AM EDT CBC (WITH DIFF) Routine 01/11/2014 3:56 AM EDT MAGNESIUM Routine 01/11/2014 3:56 AM EDT BASIC METABOLIC PANEL Routine 01/11/2014 3:56 AM EDT POCT GLUCOSE [...] 01/10/2014 4:21 AM EDT BASIC METABOLIC PANEL Routine 01/10/2014 4:21 AM EDT POCT GLUCOSE [...] 01/09/2014 4:32 AM EDT BASIC METABOLIC PANEL Routine 01/09/2014 4:32 AM EDT POCT GLUCOSE [...] 01/08/2014 7:03 AM EDT BASIC METABOLIC PANEL Routine 01/08/2014 7:03 AM EDT POCT GLUCOSE [...] 01/07/2014 3:40 AM EDT BASIC METABOLIC PANEL Routine 01/07/2014 3:40 AM EDT POCT GLUCOSE Routine 01/07/2014 3:39 AM EDT POCT GLUCOSE Routine 01/06/2014 11:40 PM EDT POCT GLUCOSE Routine 01/06/2014 9:23 PM EDT POCT GLUCOSE Routine 01/06/2014 6:42 PM EDT ELECTROPHYSIOLOGY PROCEDURE Routine 01/06/2014 5:20 PM EDT CARDIAC CATHETERIZATION Routine 01/07/20 3:58 PM EDT CARDIAC ENZYMES ([facility]) Routine 01/06/2014 12:40 PM EDT POCT GLUCOSE Routine 01/06/2014 12:15 PM EDT CARDIAC ENZYMES ([facility]) Routine 01/06/2014 11:30 AM EDT APTT STAT 01/06/2014 11:30 AM EDT LDL CHOLESTEROL, DIRECT Routine 01/07/20 14 11:30 AM EDT ECHOCARDIOGRAM TRANSTHORACIC Routine 01/06/2014 10:29 AM EDT Tachycardia EKG 12-LEAD Routine 01/06/2014 9:29 AM EDT ASCVD (arteriosclerotic cardiovascular disease) POCT GLUCOSE Routine 01/06/2014 8:28 AM EDT XR CHEST PA AND LATERAL STAT 01/07/20 6:05 AM EDT SODIUM, URINE, RANDOM Routine [...] 01/06/2014 2:50 AM EDT BASIC METABOLIC PANEL Routine 01/06/2014 2:50 AM EDT EKG 12-LEAD Routine 01/06/2014 2:01 AM EDT documented in this encounter Results * SCAN DOC: FRONT OF HOUSE MANAGER (01/12/2014 11:50 AM EDT) Anatomical Region Laterality Modality Other Narrative 01/12/2014 11:53 AM EDT Procedure Note Provider, Scanning - 01/12/2014 11:50 AM EDT Scanning Provider MEDIA MGR SCAN EXT O RDR/RSLT * (ABNORMAL) POCT Glucose (01/11/2014 11:55 AM EDT) Glucose, POC 285(H) 60 - 199 mg/dL [facility] Comment: Supplemental ranges: <140 mg/dL before meals <180 mg/dL all other times of the day Blood specimen (specimen) 01/11/2014 11:55 AM EDT 01/11/2014 11:55 AM EDT Kenia Bauman MD POINT OF CARE TEST O RDERABLES [facility] * XR chest routine PA & lateral [...] * POCT Glucose (01/11/2014 8:03 AM EDT) Glucose, POC 147 60 - 199 mg/dL [facility] Comment: Supplemental ranges: <140 mg/dL before meals <180 mg/dL all other times of the day Blood specimen (specimen) 01/11/2014 8:03 AM EDT 01/11/2014 8:03 AM EDT Kenia Bauman MD POINT OF CARE TEST O RDERABLES [facility] * (ABNORMAL) Differential, Automated (01/11/2014 3:56 AM EDT) Neutrophil % 64.0 34.0 - 71.0 % [facility] MILLENNIUM Neutrophil Absolute 6.91(H) 1.50 - 6.30 x10(3)/mc L [facility] MILLENNI[facility] Lymph % 23.9 19.0 - 53.0 % [facility] MILLENNIUM Lymphocytes Abs 2.6 1.0 - 3.6 x10(3)/mc L [facility] MILLENNIUM Monocyte % 6.5 4.0 - 13.0 % [facility] MILLENNIUM Monocyte Abs 0.7 0.2 - 1.0 x10(3)/mc L [facility] MILLENNIUM Eos % 5.1 0.0 - 7.0 % [facility] MILLENNIUM Eosinophils Abs 0.6(H) 0.0 - 0.5 x10(3)/mc L [facility] MILLENNIUM Basophil % 0.3 0.0 - 2.0 % [facility]ERNER MILLENNIUM Baso Absolute 0.0 0.0 [...] performed. Immature Gran Absolute 0.02 0.00 - 0.05 x10(3)/mc L [facility] MILLENNIUM Blood specimen (specimen) 01/11/2014 3:56 AM EDT 01/11/2014 4:20 AM EDT Narrative Resulting Agency Comment Spec In Lab Kenia Bauman MD HEMATOLOGY ORDERABLE S [facility] * (ABNORMAL) Hemogram (01/11/2014 3:56 AM EDT) White Blood Cell 10.8(H) 4.0 - 10.0 x10(3)/mc L [facility] MILLENNI[facility] Red Blood Cell 4.36(L) 4.63 - 6.08 x10(6)/mc L [facility] MILLENNIUM Hemoglobin 12.9(L) 13.7 - 17.5 gm/dL [facility]ILLENNI[facility] Hematocrit 38.7(L) 40.0 - 51.0 % [facility]ERNER MILLENNIUM Mean Cell Volume 88.8 79.0 - 92.0 fL [facility] MILLENNI[facility] Mean Cell Hemoglobin 29.6 25.6 - 32.2 pg [facility] MILLENNIUM Mean Cell Hemoglobin Concentration 33.3 32.0 - 36.5 gm/dL [facility] MILLENNIUM Platelet 171 145 - 370 x10(3)/mc L [facility] MILLENNIUM RDW Standard Deviation 45.7 35.0 - 46.0 fL [facility] MILLENNIUM RDW coefficient of variation 14.2 10.9 - 14.4 % [facility] MILLENNIUM Mean Platelet Volume 9.7 9.0 - 12.0 fL CERNER MILLENNIUM [...] Lab Kenia Bauman MD CHEMISTRY ORDERABLES [facility] * Basic Metabolic Panel (non-fasting) (01/11/2014 3:56 AM EDT) Glucose 137 60 - 199 mg/dL [facility] Comment:Diabetes: >=200 mg/d L plus symptoms Blood Urea Nitrogen 18 10 - 20 mg/dL [facility] Creatinine 0.83 0.80 - 1.50 mg/dL [facility] Comment: Please note that the pediatric reference intervals supplied above were not validated at [facility]. Results from pediatric patients should be interpreted [...] 103 98 - 107 mmol/L [facility] MILLENNI[facility] Carbon Dioxide 22 22 - 31 mmol/L [facility] MILLENNIUM Anion Gap 14 5 - 15 mmol/L [facility] MILLENNIUM Calcium 8.9 8.5 - 10.5 mg/dL [facility] MILLENNIUM Est [...] the following links into your internet browser. [email or web address] Blood specimen (specimen) 01/11/2014 3:56 AM EDT 01/11/2014 4:21 AM EDT Narrative Resulting Agency Comment Spec In Lab Kenia Bauman MD CHEMISTRY ORDERABLES Performing Organization Address [facility] Phone Number [facility] [employer] * POCT Glucose (01/11/2014 3:46 AM EDT) Glucose, POC 137 60 - 199 mg/dL [facility] Comment: Supplemental ranges: <140 mg/dL before meals <180 mg/dL all other times of the day Blood specimen (specimen) 01/11/2014 3:46 AM EDT 01/11/2014 3:46 AM EDT Kenia Bauman MD POINT OF CARE TEST O RDERABLES Performing Organization Address [facility] Phone Number [facility] Big Screen [facility] * POCT Glucose (01/10/2014 11:57 PM EDT) Glucose, POC 173 60 - 199 mg/dL [facility] Comment: Supplemental ranges: <140 mg/dL before meals <180 mg/dL all other times of the day Blood specimen (specimen) 01/10/2014 11:57 PM EDT 01/10/2014 11:57 PM EDT Kenia Bauman MD POINT OF CARE TEST O RDERABLES Performing Organization Address [facility] Phone Number [facility] [employer] * (ABNORMAL) POCT Glucose (01/10/2014 8:31 PM EDT) Glucose, POC 201(H) 60 - 199 mg/dL [facility] Comment: Supplemental ranges: <140 mg/dL before meals <180 mg/dL all other times of the day Blood specimen (specimen) 01/10/2014 8:31 PM EDT 01/10/2014 8:31 PM EDT Kenia Bauman MD POINT OF CARE TEST O [place] Performing Organization Address [facility] [facility] de Phone Number [facility] * POCT Glucose (01/10/2014 6:04 PM EDT) Glucose, POC 164 60 - 199 mg/dL [facility] Comment: Supplemental ranges: <140 mg/dL before meals <180 mg/dL all other times of the day Blood specimen (specimen) 01/10/2014 6:04 PM EDT 01/10/2014 6:04 PM EDT Kenia Bauman MD POINT OF CARE TEST O [place] Performing Organization Address [facility] de Phone Number [facility] * Electrophysiology Procedure (01/10/2014 5:19 PM [...] with O-silk. Final Parameters: Ventricular electrode: ?? [employer] Wharncliffe Model# 0292 Serial# [id number] ??Bipolar, steroid-tipped, active-fixation, ??single coil DF-4 lead ??Access: ? Left axillary vein ??Location: ?RV apex ??R wave, ICD: ? 9.6 mV ??Pacing threshold, ICD: ? 0.6 V at 0.5 ms ??Impedance, ICD: ? 913 ohms (74 ohms for shock vector) ??Pace the diaphragm at 10 V: ??No Atrial electrode: ?? [employer] Dextrus Model# 4136 Serial# [id number] ??Bipolar, steroid-tipped, active-fixation IS-1 lead ??Access: ? Left axillary vein ??Location ? Right atrial appendage ??P wave, ICD: ? 4.3 mV ??Pacing threshold, pacemaker: ??1.7 V at 0.5 ms ??Impedance, pacemaker: ??538 ohms ??Pace the diaphragm at 10 V: ??No Pulse generator: ? [employer] Incepta Model# E162 Serial# [id number] DDDR ICD ??Location: ?Subcutaneous Defibrillation testing was [...] major muscle withO-silk. Final Parameters: Ventricular electrode: [employer] Wharncliffe Model# 0292 Serial# [id number] Bipolar, steroid-tipped, active-fixation, single coil DF-4 lead Access: Left axillary vein Location: RV apex R wave, ICD: 9.6 mV Pacing threshold, ICD: 0.6 V at 0.5 ms Impedance, ICD: 913 ohms (74 ohms for shock vector) Pace the diaphragm at 10 V: No Atrial electrode: [employer] Dextrus Model# 4136 Serial# [id number] Bipolar, steroid-tipped, active-fixation IS-1 lead Access: Left axillary vein Location Right atrial appendage P wave, ICD: 4.3 mV Pacing threshold, pacemaker: 1.7 V at 0.5 ms Impedance, pacemaker: 538 ohms Pace the diaphragm at 10 V: No Pulse generator: [employer] Incepta Model# E162 Serial# [id number] DDDR ICD Location: Subcutaneous Defibrillation testing was [...] (ABNORMAL) POCT Glucose (01/10/2014 11:39 AM EDT) [facility] Glucose, POC 218(H) 60 - 199 mg/dL [facility] Comment: Supplemental ranges: <140 mg/dL before meals <180 mg/dL all other times of the day Blood specimen (specimen) 01/10/2014 11:39 AM EDT 01/10/2014 11:39 AM EDT Kenia Bauman MD POINT OF CARE TEST O RDERABLES Performing Organization Address [facility] de Phone Number [facility] * (ABNORMAL) POCT Glucose (01/10/2014 7:36 AM EDT) Glucose, POC 242(H) 60 - 199 mg/dL [facility] Comment: Supplemental ranges: <140 mg/dL before meals <180 mg/dL all other times of the day Blood specimen (specimen) 01/10/2014 7:36 AM EDT 01/10/2014 7:36 AM EDT Kenia Bauman MD POINT OF CARE TEST O CARLOSERALOREE Performing Organization Address [facility] de Phone Number [facility] * POCT Glucose (01/10/2014 4:25 AM EDT) Glucose, POC 153 60 - 199 mg/dL [facility] Comment: Supplemental ranges: <140 mg/dL before meals <180 mg/dL all other times of the day Blood specimen (specimen) 01/10/2014 4:25 AM EDT 01/10/2014 4:25 AM EDT Kenia Bauman MD POINT OF CARE TEST O [place] Performing Organization Address [facility] de Phone Number MONICA PERALTA * (ABNORMAL) Differential, Automated (01/10/2014 4:21 AM EDT) Neutrophil % 45.9 34.0 - 71.0 % [facility] Neutrophil Absolute 4.06 1.50 - 6.30 x10(3)/mc L [facility] Lymph % 40.1 19.0 - 53.0 % [facility] Lymphocytes Abs 3.6 1.0 - 3.6 x10(3)/mc L [facility] Monocyte % 6.0 4.0 - 13.0 % [facility] Monocyte Abs 0.5 0.2 - 1.0 x10(3)/mc L [facility] Eos % 7.6(H) 0.0 - 7.0 % [facility] Eosinophils Abs 0.7(H) 0.0 - 0.5 x10(3)/mc L [facility] Basophil % 0.3 0.0 - 2.0 % [facility] Baso Absolute 0.0 0.0 [...] ORDERABLE S [facility] ROSEENNIUM * (ABNORMAL) Hemogram (01/10/2014 4:21 AM EDT) White Blood Cell 8.8 4.0 - 10.0 x10(3)/mc L [facility] Red Blood Cell 4.46(L) 4.63 - 6.08 x10(6)/mc L [facility] Hemoglobin 13.6(L) 13.7 - 17.5 gm/dL [facility] Hematocrit 38.8(L) 40.0 - 51.0 % [facility] Mean Cell Volume 87.0 79.0 - 92.0 fL [facility] Mean Cell Hemoglobin 30.5 25.6 - 32.2 pg [facility] Mean Cell Hemoglobin Concentration 35.1 32.0 - 36.5 gm/dL [facility] Platelet 177 145 - 370 x10(3)/mc L [facility] RDW Standard Deviation 44.5 35.0 - 46.0 fL [facility] RDW coefficient of variation 14.3 10.9 - 14.4 % [facility] Mean Platelet Volume 9.7 9.0 - 12.0 fL [facility] Blood specimen (specimen) 01/10/2014 4:21 AM EDT 01/10/2014 4:36 AM EDT Narrative Resulting Agency Comment Spec In Lab Kenia Bamuan MD HEMATOLOGY ORDERABLE S Performing Organization Address [facility] de Phone Number [facility] * (ABNORMAL) Magnesium (01/10/2014 4:21 AM EDT) Pathologist [facility] Magnesium 0.67(L) 0.69 - 1.07 mmol/L [facility]ILL[facility]NI[facility] Blood specimen (specimen) 01/10/2014 4:21 AM EDT 01/10/2014 4:36 AM EDT Narrative Resulting Agency Comment Spec In Lab Kenia Bauman MD CHEMISTRY ORDERABLES Performing Organization Address [facility] de Phone Number [facility] * Basic Metabolic Panel (non-fasting) (01/10/2014 4:21 AM EDT) Glucose 161 60 - 199 mg/dL [facility] MILLENNIUM Comment:Diabetes: >=200 mg/d L plus symptoms Blood Urea Nitrogen 17 10 - 20 mg/dL [facility] Creatinine 0.91 0.80 - 1.50 mg/dL [facility] Comment: Please note that the pediatric reference intervals supplied above were not validated at [facility]. Results from pediatric patients should be interpreted in conjunction to the patient's age, height and muscle mass. Sodium 139 135 - 145 mmol/L [facility] Potassium 4.3 3.5 - 5.0 mmol/L [facility] Comment: Please note: ??Patients with WBC >100,000 may have falsely elevated Potassium levels. ??For accurate Potassium quantification in these patients send serum separator tube (gold top) for subsequent determinations. ??Contact the Clinical Chemistry Laboratory if there are any questions. Chloride 102 98 - 107 mmol/L [facility]ILL[facility] Carbon Dioxide 25 22 - 31 mmol/L [facility] Anion Gap 12 5 - 15 mmol/L [facility]ILL[facility]NI[facility] Calcium 9.7 8.5 - 10.5 mg/dL [facility] Est [...] the following links into your internet browser. [email or web address] Blood specimen (specimen) 01/10/2014 4:21 AM EDT 01/10/2014 4:36 AM EDT Narrative Resulting Agency Comment Spec In Lab Kenia Bauman MD CHEMISTRY ORDERABLES Performing Organization Address [facility] de Phone Number [facility] * POCT Glucose (01/09/2014 11:25 PM EDT) Glucose, POC 164 60 - 199 mg/dL [facility] Comment: Supplemental ranges: <140 mg/dL before meals <180 mg/dL all other times of the day Blood specimen (specimen) 01/09/2014 11:25 PM EDT 01/09/2014 11:25 PM EDT Kenia Bauman MD POINT OF CARE TEST O RDERABLES Performing Organization Address [facility] de Phone Number [facility] * (ABNORMAL) POCT Glucose (01/09/2014 8:03 PM EDT) Glucose, POC 204(H) 60 - 199 mg/dL [facility] Comment: Supplemental ranges: <140 mg/dL before meals <180 mg/dL all other times of the day Blood specimen (specimen) 01/09/2014 8:03 PM EDT 01/09/2014 8:03 PM EDT Kenia Bauman MD POINT OF CARE TEST O RDERALOREE Performing Organization Address [facility] de Phone Number [facility] * (ABNORMAL) POCT Glucose (01/09/2014 4:34 PM EDT) Glucose, POC 231(H) 60 - 199 mg/dL [facility] Comment: Supplemental ranges: <140 mg/dL before meals <180 mg/dL all other times of the day Blood specimen (specimen) 01/09/2014 4:34 PM EDT 01/09/2014 4:34 PM EDT Kenia Bauman MD POINT OF CARE TEST O [place] Performing Organization Address [facility] de Phone Number [facility] * (ABNORMAL) POCT Glucose (01/09/2014 11:44 AM EDT) Glucose, POC 280(H) 60 - 199 mg/dL [facility] Comment: Supplemental ranges: <140 mg/dL before meals <180 mg/dL all other times of the day Blood specimen (specimen) 01/09/2014 11:44 AM EDT 01/09/2014 11:44 AM EDT Kenia Bauman MD POINT OF CARE TEST O [place] Performing Organization Address [facility] de Phone Number [facility] * POCT Glucose (01/09/2014 7:51 AM EDT) Glucose, POC 148 60 - 199 mg/dL [facility] Comment: Supplemental ranges: <140 mg/dL before meals <180 mg/dL all other times of the day Blood specimen (specimen) 01/09/2014 7:51 AM EDT 01/09/2014 7:51 AM EDT Kenia Bauman MD POINT OF CARE TEST O RDERABLES [facility] * Basic Metabolic Panel (non-fasting) (01/09/2014 4:32 AM EDT) Glucose 124 60 - 199 mg/dL [facility] Comment:Diabetes: >=200 mg/d L plus symptoms Blood Urea Nitrogen 15 10 - 20 mg/dL [facility] Creatinine 0.87 0.80 - 1.50 mg/dL [facility] Comment: Please note that the pediatric reference intervals supplied above were not validated at [facility]. Results from pediatric patients should be interpreted [...] 102 98 - 107 mmol/L [facility] Carbon Dioxide 24 22 - 31 mmol/L [facility]ILL[facility] Anion Gap 15 5 - 15 mmol/L [facility] Calcium 10.0 8.5 - 10.5 mg/dL [facility] Est [...] the following links into your internet browser. [email or web address] Blood specimen (specimen) 01/09/2014 4:32 AM EDT 01/09/2014 4:38 AM EDT Narrative Resulting Agency Comment Spec In Lab Kenia Bauman MD CHEMISTRY ORDERABLES [facility] * (ABNORMAL) Differential, Automated (01/09/2014 4:32 AM EDT) Neutrophil % 44.1 34.0 - 71.0 % [facility]ILL[facility] Neutrophil Absolute 3.51 1.50 - 6.30 x10(3)/mc L [facility] Lymph % 42.1 19.0 - 53.0 % [facility]ILLENNI[facility] Lymphocytes Abs 3.4 1.0 - 3.6 x10(3)/mc L [facility] MILLENNIUM Monocyte % 6.2 4.0 - 13.0 % [facility]ILLENNI[facility] Monocyte Abs 0.5 0.2 - 1.0 x10(3)/mc L [facility] MILLENNIUM Eos % 6.9 0.0 - 7.0 % [facility] Eosinophils Abs 0.6(H) 0.0 - 0.5 x10(3)/mc L [facility]ILLENNI[facility] Basophil % 0.6 0.0 - 2.0 % [facility]ILLENNI[facility] Baso Absolute 0.0 0.0 [...] Kenia Bauman MD HEMATOLOGY ORDERABLE S [facility] ROSEENNIUM * (ABNORMAL) Hemogram (01/09/2014 4:32 AM EDT) [facility] White Blood Cell 8.0 4.0 - 10.0 x10(3)/mc L [facility] Red Blood Cell 4.83 4.63 - 6.08 x10(6)/mc L [facility] Hemoglobin 14.5 13.7 - 17.5 gm/dL [facility] Comment:Repeated & verified Hematocrit 43.0 40.0 - 51.0 % [facility] Mean Cell Volume 89.0 79.0 - 92.0 fL [facility] Mean Cell Hemoglobin 30.0 25.6 - 32.2 pg [facility] Mean Cell Hemoglobin Concentration 33.7 32.0 - 36.5 gm/dL [facility] Platelet 184 145 - 370 x10(3)/mc L [facility] RDW Standard Deviation 47.4(H) 35.0 - 46.0 fL [facility] RDW coefficient of variation 14.8(H) 10.9 - 14.4 % [facility] Mean Platelet Volume 10.3 9.0 - 12.0 fL [facility] Blood specimen (specimen) 01/09/2014 4:32 AM EDT 01/09/2014 4:38 AM EDT Narrative Resulting Agency Comment Spec In Lab Kenia Bauman MD HEMATOLOGY ORDERABLE S Performing Organization Address [facility] de Phone Number [facility] * Magnesium (01/09/2014 4:32 AM EDT) [facility] Magnesium 0.76 0.69 - 1.07 mmol/L [facility] Blood specimen (specimen) 01/09/2014 4:32 AM EDT 01/09/2014 4:38 AM EDT Narrative Resulting Agency Comment Spec In Lab Kenia Bauman MD CHEMISTRY ORDERABLES Performing Organization Address [facility] de Phone Number [facility] * POCT Glucose (01/09/2014 4:19 AM EDT) [facility] Glucose, POC 114 60 - 199 mg/dL [facility] Comment: Supplemental ranges: <140 mg/dL before meals <180 mg/dL all other times of the day Blood specimen (specimen) 01/09/2014 4:19 AM EDT 01/09/2014 4:19 AM EDT Kenia Bauman MD POINT OF CARE TEST O RDERABLES Performing Organization Address [facility] de Phone Number [facility] * POCT Glucose (01/09/2014 1:41 AM EDT) Glucose, POC 155 60 - 199 mg/dL [facility] Comment: Supplemental ranges: <140 mg/dL before meals <180 mg/dL all other times of the day Blood specimen (specimen) 01/09/2014 1:41 AM EDT 01/09/2014 1:41 AM EDT Kenia Bauman MD POINT OF CARE TEST O RDERABLES Performing Organization Address [facility] de Phone Number [facility] * (ABNORMAL) POCT Glucose (01/08/2014 11:19 PM EDT) Glucose, POC 252(H) 60 - 199 mg/dL [facility] Comment: Supplemental ranges: <140 mg/dL before meals <180 mg/dL all other times of the day Blood specimen (specimen) 01/08/2014 11:19 PM EDT 01/08/2014 11:19 PM EDT Kenia Bauman MD POINT OF CARE TEST O RDERABLES Performing Organization Address [facility] de Phone Number [facility] * (ABNORMAL) POCT Glucose (01/08/2014 7:50 PM EDT) Glucose, POC 205(H) 60 - 199 mg/dL [facility] Comment: Supplemental ranges: <140 mg/dL before meals <180 mg/dL all other times of the day Blood specimen (specimen) 01/08/2014 7:50 PM EDT 01/08/2014 7:50 PM EDT Kenia Bauman MD POINT OF CARE TEST O RDERABLES Performing Organization Address [facility] de Phone Number [facility] * POCT Glucose (01/08/2014 5:17 PM EDT) Glucose, POC 194 60 - 199 mg/dL [facility] Comment: Supplemental ranges: <140 mg/dL before meals <180 mg/dL all other times of the day Blood specimen (specimen) 01/08/2014 5:17 PM EDT 01/08/2014 5:17 PM EDT Kenia Bauman MD POINT OF CARE TEST O RDERABLES Performing Organization Address [facility] Phone Number [facility] * (ABNORMAL) POCT Glucose (01/08/2014 2:21 PM EDT) Glucose, POC 230(H) 60 - 199 mg/dL [facility] Comment: Supplemental ranges: <140 mg/dL before meals <180 mg/dL all other times of the day Blood specimen (specimen) 01/08/2014 2:21 PM EDT 01/08/2014 2:21 PM EDT Kenia Bauman MD POINT OF CARE TEST O RDERABLES Performing Organization Address [facility] Phone Number [facility]EN[facility] * (ABNORMAL) POCT Glucose (01/08/2014 12:04 PM EDT) Glucose, POC 240(H) 60 - 199 mg/dL [facility] Comment: Supplemental ranges: <140 mg/dL before meals <180 mg/dL all other times of the day Blood specimen (specimen) 01/08/2014 12:04 PM EDT 01/08/2014 12:04 PM EDT Kenia Bauman MD POINT OF CARE TEST O RDERABLES Performing Organization Address [facility] de Phone Number [facility] ROSEENNI[facility] * POCT Glucose (01/08/2014 7:56 AM EDT) Pathologist [facility] Glucose, POC 125 60 - 199 mg/dL [facility] Comment: Supplemental ranges: <140 mg/dL before meals <180 mg/dL all other times of the day Blood specimen (specimen) 01/08/2014 7:56 AM EDT 01/08/2014 7:56 AM EDT Kenia Bauman MD POINT OF CARE TEST O RDERABLES [facility] * (ABNORMAL) Magnesium (01/08/2014 7:03 AM EDT) [facility] Magnesium 0.58(L) 0.69 - 1.07 mmol/L [facility] Blood specimen (specimen) 01/08/2014 7:03 AM EDT 01/08/2014 7:09 AM EDT Narrative Resulting Agency Comment Spec In Lab Kenia Bauman MD CHEMISTRY ORDERABLES Performing Organization Address [facility] de Phone Number [facility] * Differential, Automated (01/08/2014 7:03 AM EDT) [facility] Neutrophil % 46.8 34.0 - 71.0 % [facility] MILLENNIUM Neutrophil Absolute 3.53 1.50 - 6.30 x10(3)/mcL [facility] Lymph % 41.5 19.0 - 53.0 % [facility]ILL[facility] Lymphocytes Abs 3.1 1.0 - 3.6 x10(3)/mcL [facility]ILL[facility] Monocyte % 5.8 4.0 - 13.0 % [facility]ILL[facility] Monocyte Abs 0.4 0.2 - 1.0 x10(3)/mcL [facility]ILL[facility] Eos % 5.2 0.0 - 7.0 % [facility] Eosinophils Abs 0.4 0.0 - 0.5 x10(3)/mcL [facility]ILL[facility] Basophil % 0.4 0.0 - 2.0 % [facility]ILL[facility]NI[facility] Baso Absolute 0.0 0.0 - 0.2 x10(3)/mcL [facility] MILLENNIUM [...] performed. Immature Gran Absolute 0.02 0.00 - 0.05 x10(3)/mcL [facility] Blood specimen (specimen) 01/08/2014 7:03 AM EDT 01/08/2014 7:08 AM EDT Narrative Resulting Agency Comment Spec In Lab Kenia Bauman MD HEMATOLOGY ORDERABLE S [facility] * (ABNORMAL) Hemogram (01/08/2014 7:03 AM EDT) White Blood Cell 7.5 4.0 - 10.0 x10(3)/mc L [facility] Red Blood Cell 4.00(L) 4.63 - 6.08 x10(6)/mc L [facility]ILL[facility] Hemoglobin 11.8(L) 13.7 - 17.5 gm/dL [facility] Hematocrit 35.5(L) 40.0 - 51.0 % [facility] MILLENNI[facility] Mean Cell Volume 88.8 79.0 - 92.0 fL [facility] Mean Cell Hemoglobin 29.5 25.6 - 32.2 pg [facility]ILL[facility] Mean Cell Hemoglobin Concentration 33.2 32.0 - 36.5 gm/dL [facility] MILLEN[facility] Platelet 143(L) 145 - 370 x10(3)/mc L [facility] RDW Standard Deviation 47.5(H) 35.0 - 46.0 fL [facility]ILL[facility] RDW coefficient of variation 14.6(H) 10.9 - 14.4 % [facility] Mean Platelet Volume 9.5 9.0 - 12.0 fL [facility] Blood specimen (specimen) 01/08/2014 7:03 AM EDT 01/08/2014 7:08 AM EDT Narrative Resulting Agency Comment Spec In Lab Kenia Bauman MD HEMATOLOGY ORDERABLE S [facility]ILLEN[facility] * (ABNORMAL) Basic Metabolic Panel (non-fasting) (01/08/2014 7:03 AM EDT) Glucose 133 60 - 199 mg/dL [facility] Comment:Diabetes: >=200 mg/d L plus symptoms Blood Urea Nitrogen 16 10 - 20 mg/dL [facility] Creatinine 0.74(L) 0.80 - 1.50 mg/dL [facility] MILL[facility]NI[facility] Comment: Please note that the pediatric reference intervals supplied above were not validated at [facility]. Results from pediatric patients should be interpreted [...] 103 98 - 107 mmol/L [facility] MILL[facility]NI[facility] Carbon Dioxide 24 22 - 31 mmol/L [facility] MILL[facility] Anion Gap 13 5 - 15 mmol/L [facility]ILL[facility] Calcium 9.1 8.5 - 10.5 mg/dL [facility] MILLENNIUM Est [...] the following links into your internet browser. [email or web address] Blood specimen (specimen) 01/08/2014 7:03 AM EDT 01/08/2014 7:08 AM EDT Narrative Resulting Agency Comment Spec In Lab Kenia Bauman MD CHEMISTRY ORDERABLES Performing Organization Address [facility] de Phone Number [facility] * (ABNORMAL) POCT Glucose (01/08/2014 3:55 AM EDT) Glucose, POC 219(H) 60 - 199 mg/dL [facility] Comment: Supplemental ranges: <140 mg/dL before meals <180 mg/dL all other times of the day Blood specimen (specimen) 01/08/2014 3:55 AM EDT 01/08/2014 3:55 AM EDT Kenia Bauman MD POINT OF CARE TEST O RDERABLES Performing Organization Address [facility] de Phone Number [facility] * POCT Glucose (01/07/2014 11:51 PM EDT) Glucose, POC 153 60 - 199 mg/dL [facility] Comment: Supplemental ranges: <140 mg/dL before meals <180 mg/dL all other times of the day Blood specimen (specimen) 01/07/2014 11:51 PM EDT 01/07/2014 11:51 PM EDT Kenia Bauman MD POINT OF CARE TEST O RDERABLES Performing Organization Address [facility] de Phone Number [facility] * POCT Glucose (01/07/2014 9:32 PM EDT) Glucose, POC 190 60 - 199 mg/dL [facility] Comment: Supplemental ranges: <140 mg/dL before meals <180 mg/dL all other times of the day Blood specimen (specimen) 01/07/2014 9:32 PM EDT 01/07/2014 9:32 PM EDT Kenia Bauman MD POINT OF CARE TEST O RDERABLES Performing Organization Address [facility] de Phone Number [facility] * (ABNORMAL) POCT Glucose (01/07/2014 7:36 PM EDT) Glucose, POC 223(H) 60 - 199 mg/dL [facility] Comment: Supplemental ranges: <140 mg/dL before meals <180 mg/dL all other times of the day Blood specimen (specimen) 01/07/2014 7:36 PM EDT 01/07/2014 7:36 PM EDT Kenia Bauman MD POINT OF CARE TEST O RDERABLES Performing Organization Address [facility] de Phone Number [facility] * POCT Glucose (01/07/2014 5:32 PM EDT) Glucose, POC 180 60 - 199 mg/dL [facility] Comment: Supplemental ranges: <140 mg/dL before meals <180 mg/dL all other times of the day Blood specimen (specimen) 01/07/2014 5:32 PM EDT 01/07/2014 5:32 PM EDT Kenia Bauman MD POINT OF CARE TEST O RDERABLES Performing Organization Address [facility] de Phone Number [facility] * (ABNORMAL) POCT Glucose (01/07/2014 1:24 PM EDT) Glucose, POC 240(H) 60 - 199 mg/dL [facility] Comment: Supplemental ranges: <140 mg/dL before meals <180 mg/dL all other times of the day Blood specimen (specimen) 01/07/2014 1:24 PM EDT 01/07/2014 1:24 PM EDT Kenia Bauman MD POINT OF CARE TEST O RDERABLES Performing Organization Address [facility] de Phone Number [facility] * (ABNORMAL) Magnesium (01/07/2014 10:00 AM EDT) Magnesium 0.66(L) 0.69 - 1.07 mmol/L [facility] Blood specimen (specimen) 01/07/2014 10:00 AM EDT 01/07/2014 10:17 AM EDT Narrative Resulting Agency Comment Spec In Lab Kenia Bauman MD CHEMISTRY ORDERABLES Performing Organization Address [facility] [facility] de Phone Number [facility] * Potassium (01/07/2014 10:00 AM EDT) Potassium 4.3 3.5 - 5.0 mmol/L [facility] Comment: Please note: ??Patients with WBC >100,000 [...] Bauman MD CHEMISTRY ORDERABLES Performing Organization Address [facility] de Phone Number [facility] * POCT Glucose (01/07/2014 9:23 AM EDT) Glucose, POC 178 60 - 199 mg/dL [facility] Comment: Supplemental ranges: <140 mg/dL before meals <180 mg/dL all other times of the day Blood specimen (specimen) 01/07/2014 9:23 AM EDT 01/07/2014 9:23 AM EDT Kenia Bauman MD POINT OF CARE TEST O RDERABLES Performing Organization Address [facility] de Phone Number [facility] * Differential, Automated (01/07/2014 3:40 AM EDT) Neutrophil % 60.4 34.0 - 71.0 % [facility] Neutrophil Absolute 5.37 1.50 - 6.30 x10(3)/mcL CERNER MILLENNIUM Lymph % 29.1 19.0 - 53.0 % CERNER MILLENNIUM Lymphocytes Abs 2.6 1.0 - 3.6 x10(3)/mcL CERNER MILLENNIUM Monocyte % 5.9 4.0 - 13.0 % CERNER MILLENNIUM Monocyte Abs 0.5 0.2 - 1.0 x10(3)/mcL CERNER MILLENNIUM Eos % 3.9 0.0 - 7.0 % CERNER MILLENNIUM Eosinophils Abs 0.4 0.0 - 0.5 x10(3)/mcL CERNER MILLENNIUM Basophil % 0.5 0.0 - 2.0 % CERNER MILLENNIUM Baso Absolute 0.0 0.0 - 0.2 x10(3)/mcL CERNER MILLENNIUM [...] performed. Immature Gran Absolute 0.02 0.00 - 0.05 x10(3)/mcL CERNER MILLENNIUM Blood specimen (specimen) 01/07/2014 3:40 AM EDT 01/07/2014 3:43 AM EDT Narrative Resulting Agency Comment Spec In Lab Kenia Bauman MD HEMATOLOGY ORDERABLE S [facility] ROSEENNI[facility] * (ABNORMAL) Hemogram (01/07/2014 3:40 AM EDT) White Blood Cell 8.9 4.0 - 10.0 x10(3)/mc L CERNER MILLENNIUM Red Blood Cell 3.85(L) 4.63 - 6.08 x10(6)/mc L CERNER MILLENNIUM Hemoglobin 11.4(L) 13.7 - 17.5 gm/dL CERNER MILLENNIUM Hematocrit 34.5(L) 40.0 - 51.0 % CERNER MILLENNIUM Mean Cell Volume 89.6 79.0 - 92.0 fL CERNER MILLENNIUM Mean Cell Hemoglobin 29.6 25.6 - 32.2 pg CERNER MILLENNIUM Mean Cell Hemoglobin Concentration 33.0 32.0 - 36.5 gm/dL CERNER MILLENNIUM Platelet 137(L) 145 - 370 x10(3)/mc L CERNER MILLENNIUM RDW Standard Deviation 48.7(H) 35.0 - 46.0 fL CERNER MILLENNIUM RDW coefficient of variation 15.0(H) 10.9 - 14.4 % CERNER MILLENNIUM Mean Platelet Volume 9.7 9.0 - 12.0 fL CERNER MILLENNIUM Blood specimen (specimen) 01/07/2014 3:40 AM EDT 01/07/2014 3:43 AM EDT Narrative Resulting Agency Comment Spec In Lab Kenia Bauman MD HEMATOLOGY ORDERABLE S Performing Organization Address [facility] de Phone Number [facility] MILLENNIUM * (ABNORMAL) Magnesium (01/07/2014 3:40 AM EDT) Magnesium 0.61(L) 0.69 - 1.07 mmol/L CERNER MILLENNIUM Blood specimen (specimen) 01/07/2014 3:40 AM EDT 01/07/2014 3:43 AM EDT Narrative Resulting Agency Comment Spec In Lab Kenia Bauman MD CHEMISTRY ORDERABLES Performing Organization Address [facility] de Phone Number [facility] MILLENNIUM * (ABNORMAL) Basic Metabolic Panel (non-fasting) (01/07/2014 3:40 AM EDT) Glucose 93 60 - 199 mg/dL CERNER MILLENNIUM Comment:Diabetes: >=200 mg/d L plus symptoms Blood Urea Nitrogen 20 10 - 20 mg/dL CERNER MILLENNIUM Creatinine 0.81 0.80 - 1.50 mg/dL CERNER MILLENNIUM Comment: Please note that the pediatric reference intervals supplied above were not validated at [facility]. Results from pediatric patients should be interpreted [...] 103 98 - 107 mmol/L CERNER MILLENNIUM Carbon Dioxide 26 22 - 31 mmol/L CERNER MILLENNIUM Anion Gap 11 5 - 15 mmol/L CERNER MILLENNIUM Calcium 8.8 8.5 - 10.5 mg/dL CERNER MILLENNIUM Est [...] the following links into your internet browser. [email or web address] Blood specimen (specimen) 01/07/2014 3:40 AM EDT 01/07/2014 3:43 AM EDT Narrative Resulting Agency Comment Spec In Lab Kenia Bauman MD CHEMISTRY ORDERABLES Performing Organization Address [facility] de Phone Number MONICA Entomo * POCT Glucose (01/07/2014 3:39 AM EDT) Glucose, POC 95 60 - 199 mg/dL CERNER MILLENNIUM Comment: Supplemental ranges: <140 mg/dL before meals <180 mg/dL all other times of the day Blood specimen (specimen) 01/07/2014 3:39 AM EDT 01/07/2014 3:39 AM EDT Kenia Bauman MD POINT OF CARE TEST O RDERABLES Performing Organization Address [facility] de Phone Number MONICA MILLENNIUM * POCT Glucose (01/06/2014 11:40 PM EDT) Glucose, POC 130 60 - 199 mg/dL [facility] Comment: Supplemental ranges: <140 mg/dL before meals <180 mg/dL all other times of the day Blood specimen (specimen) 01/06/2014 11:40 PM EDT 01/06/2014 11:40 PM EDT Kenia Bauman MD POINT OF CARE TEST O [place] Performing Organization Address [facility] de Phone Number [facility] * POCT Glucose (01/06/2014 9:23 PM EDT) Glucose, POC 173 60 - 199 mg/dL [facility] Comment: Supplemental ranges: <140 mg/dL before meals <180 mg/dL all other times of the day Blood specimen (specimen) 01/06/2014 9:23 PM EDT 01/06/2014 9:23 PM EDT Kenia Bauman MD POINT OF CARE TEST O [place] Performing Organization Address [facility] de Phone Number [facility] * POCT Glucose (01/06/2014 6:42 PM EDT) Glucose, POC 125 60 - 199 mg/dL [facility] Comment: Supplemental ranges: <140 mg/dL before meals <180 mg/dL all other times of the day Blood specimen (specimen) 01/06/2014 6:42 PM EDT 01/06/2014 6:42 PM EDT Kenia Bauman MD POINT OF CARE TEST O [place] Performing Organization Address [facility] de Phone Number [facility] * Electrophysiology Procedure (01/06/2014 5:20 PM EDT) [...] Modality Other Narrative 01/09/2014 7:14 AM EDT ?[facility] ? Cardiac Catheterization/Intervention Report ? Patient Name: Shahnaz Santiago ? Procedure Date: 01/06/2014 ? A #: [id number] ? Primary Physician: Britton, Jaron W. ? Case #: [id number] ? File Name: [id number] ? Catheterization Order Number: [id number] ? [facility] ? Final Report [place], [place] ? Patient Name: ? Shahnaz Santiaog ? ID#: ?[id number] ? : ?1950 ? Procedure Date: ? January 06, 2014 ? Case #: ? 14- [id number] ? Room: ? 1 ? Case Physician: ? Jaron Jarquin, M.D. ? Start: ?14:40 ?Fellow: ? Jennifer Argueta, ?Admission: ??01/06/2014 ?M.D. ? Referring Physician: ??Jennifer Haro M.D. ? Procedures: ?* Coronary Angiography ?* Left Heart Catheterization ?* Coronary Flow [place] Measurement ?* Coronary Instantaneous Wave-Free Ratio ?* [...] IFR-coronary and ?vascular closure device. ? Jaron Jarquin M.D. ? Electronically Signed by: Jaron Jarquin M.D. ? Report Finalized: 01/06/2014 ??16:11 ? Procedure Note Jaron Jarquin II, MD - 01/09/2014 [facility] Cardiac Catheterization/Intervention Report Patient Name: Shahnaz Santiago Procedure Date: 01/06/2014 A #: [id number] Primary Physician: Jaron Jarquin Case #: File Name: [id number] Catheterization Order Number: [id number] [facility] FinalReport [place], [place] Patient Name: Shahnaz Santiago ID#:[id number] :1950 Procedure Date: January 06, 2014 Case #: Room: 1 Case Physician: Jaron Jarquin M.D. Start: 14:40 Fellow: Jennifer Argueta, Admission:01/06/2014 Adriana Referring Physician: Jennifer Haro M.D. Procedures: * Coronary Angiography * Left Heart Catheterization * Coronary Flow [place] Measurement * Coronary Instantaneous Wave-Free Ratio * [...] (ABNORMAL) Cardiac Enzymes (01/06/2014 12:40 PM EDT) Pathologist [facility] [place] Troponin-T 0.10(H) <=0.03 ng/mL MONICA PERALTA Comment: 0.03 ng/mL: Represents the 99th percentile upper reference limit for normals. >0.03 ng/mL: Elevated cardiac troponin T level indicative of myocardial damage. Diagnosis of acute, evolving or recent DC requires a typical rise and gradual fall [...] consensus document of the Joint Society of Cardiology/[place] College of Cardiology Committee for the redefinition of myocardial infarction. ??Journal of the [place] College of Cardiology 2000; 36: 959-969] Creatine Kinase 127 0 - 200 unit/L MONICA PERALTA Blood specimen (specimen) 01/06/2014 12:40 PM EDT 01/06/2014 12:52 PM EDT Narrative Resulting Agency Comment Spec In Lab Kenia Bauman MD CHEMISTRY ORDERABLES MONICA PERALTA * POCT Glucose (01/06/2014 12:15 PM EDT) Pathologist [facility] [place] Glucose, POC 165 60 - 199 mg/dL MONICA PERALTA Comment: Supplemental ranges: <140 mg/dL before meals <180 mg/dL all other times of the day Blood specimen (specimen) 01/06/2014 12:15 PM EDT 01/06/2014 12:15 PM EDT Kenia Bauman MD POINT OF CARE TEST O RDERABLES Performing Organization Address [facility] de Phone Number MONICA PERALTA * Cardiac Enzymes (01/06/2014 11:30 AM EDT) Troponin-T Not Perf <=0.03 ng/mL MONICA PERALTA Comment: Unable to quantitate due to sample hemolysis. ??Sample redraw suggested. Called Maximiliano, 01/06/14 12:30, blr 0.03 ng/mL: Represents the 99th percentile upper reference limit for normals. >0.03 ng/mL: Elevated cardiac troponin T level indicative of myocardial damage. Diagnosis of acute, evolving or recent DC requires a typical rise and gradual fall [...] consensus document of the Joint Society of Cardiology/[place] College of Cardiology Committee for the redefinition of myocardial infarction. ??Journal of the [place] College of Cardiology 2000; 36: 959-969] Creatine Kinase 132 0 - 200 unit/L MONICA PERALTA Blood specimen (specimen) 01/06/2014 11:30 AM EDT 01/06/2014 11:45 AM EDT Narrative Resulting Agency Comment Spec In Lab Kenia Bauman MD CHEMISTRY ORDERABLES Performing Organization Address [facility] de Phone Number MONICA PERALTA * (ABNORMAL) APTT (01/06/2014 11:30 AM EDT) Partial Thromboplastin Time 48(H) 25 - 35 sec MONICA PERALTA Comment: Recommended therapeutic PTT range for full dose unfractionated heparin is 80-114 seconds. Blood specimen (specimen) 01/06/2014 11:30 AM EDT 01/06/2014 11:45 AM EDT Narrative Resulting Agency Comment Spec In Lab Kenia Bauman MD HEMATOLOGY ORDERABLE S Performing Organization Address [facility] de Phone Number [facility] * LDL Cholesterol, Direct (01/06/2014 11:30 AM EDT) LDL Cholesterol, Direct 13 <=99 mg/dL [facility] Comment: The National Cholesterol Education Program (NCEP) has set the following guidelines for LDL Cholesterol: Reference range: ?? Optimal: ?<100 mg/dL ?? Near Optimal/Above Optimal: ?? 100-129 mg/dL ?? Borderline high: ?130-159 mg/dL ?? High: ? 160-189 mg/dL ?? Very high: ?>gv=262 mg/dL TATI 2001: 285(19):4817-9497 Blood specimen (specimen) 01/06/2014 11:30 AM EDT 01/06/2014 11:45 AM EDT Narrative Resulting Agency Comment Spec In Lab Kenia Bauman MD CHEMISTRY ORDERABLES Performing Organization Address [facility] de Phone Number [facility] * Echocardiogram Transthoracic(Leb) (01/06/2014 10:29 AM EDT) EF 56 HEARTLAB SYSTEM Anatomical Region Laterality Modality Other 01/06/2014 Narrative 01/06/2014 10:41 AM EDT Procedure: ? Transthoracic Echocardiogram Patient: ? PAMELA CHRISTIE P ? (Age): 1950(63) Med Rec#: ?[id number] ? Sex: ?M ? Site Loc: ?[facility] ? Ht / Wt: ??185(cm)/92(kg) Pt. Loc: ? CCU ?BSA: ?2.17 Study Date: ?01/06/2014 ? Pt. Type: Inpatient Tape: ? Referring: Kenia Bauman ([id number]) Referring: [facility] [employer] [facility] [employer] Specialist: Jodie Givens Diagnosis:CPT Code(s): ??Echo Full (93841), ??Spectral Doppler (88608), Color Doppler (13099), Indication(s): ??Tachycardia Rhythm: HR ?BP ?114/63 ?? [...] ? Mid-Inferior ?Normal ? Mid-Inferoseptal ?Normal ? [place]-Septal ? Normal ? [place]-Anterior ? Normal ? [place]-Lateral ?Normal ? [place]-Inferior ? Normal ? [place]-Tip ?Normal ? Chambers ?Value ?Units (Range) ? [...] 01/06/2014 10:41:12 Images reviewed and interpretation verified [facility] Cardiac Ultrasound Laboratory Procedure Note Warren Atkinson MD - 01/06/2014 Procedure: Transthoracic Echocardiogram Patient: PAMELA ROGERS(Age): 1950(63) Med Rec#: [id number] Sex: M Site Loc: [facility] Ht / Wt: 185(cm)/92(kg) Pt. Loc: CCU BSA: 2.17 Study Date: 01/06/2014 Pt. Type: Inpatient Tape: Referring: Kenia Bauman ([id number]) Referring: [facility] [employer] And [employer] Specialist: Jodie Givens Diagnosis:CPT Code(s): Echo Full (38778), Spectral Doppler (44479), Color Doppler (83104), Indication(s): Tachycardia Rhythm: HR BP 114/63 SUMMARY: [...] Normal Mid-Posterolateral Normal Mid-Inferior Normal Mid-Inferoseptal Normal [place]-Septal Normal [place]-Anterior Normal [place]-Lateral Normal [place]-Inferior Normal [place]-Tip Normal Chambers Value Units (Range) EF Bi-p [...] 01/06/2014 10:41:12 Images reviewed and interpretation verified [facility] Cardiac Ultrasound Laboratory Kenia Bauman MD ECHO ORDERABLES * EKG 12 Lead (01/06/2014 9:29 AM EDT) Ventricular rate 61 BPM MUSE SYSTEM Atrial Rate 61 BPM MUSE SYSTEM P-R Interval 210 ms MUSE SYSTEM QRS Duration 128 ms MUSE SYSTEM Q-T Interval 450 ms MUSE SYSTEM QTC Calculated (Bezet) 453 ms MUSE SYSTEM Calculated P [place] 36 degrees MUSE SYSTEM Calculated R [place] -51 degrees MUSE SYSTEM Calculated T [place] -62 degrees MUSE SYSTEM INTERPRETATION Sinus rhythm [...] PM EDT Kenia Bauman MD ECG ORDERABLES MUSE SYSTEM * POCT Glucose (01/06/2014 8:28 AM EDT) [facility] Glucose, POC 104 60 - 199 mg/dL MONICA Entomo Comment: Supplemental ranges: <140 mg/dL before meals <180 mg/dL all other times of the day Blood specimen (specimen) 01/06/2014 8:28 AM EDT 01/06/2014 8:28 AM EDT Kneia Bauman MD POINT OF CARE TEST O RDERABLES [facility] * XR chest routine PA & lateral [...] Creatinine, urine, random (01/06/2014 3:06 AM EDT) Creatinine, Urine 167 mg/dL CERNER InfoENNIUM Urine specimen (specimen) 01/06/2014 3:06 AM EDT 01/06/2014 3:15 AM EDT Narrative Resulting Agency Comment Spec In Lab Kenia Bauman MD URINE ORDERABLES Performing Organization Address [facility] de Phone Number [facility] * Sodium, urine, random (01/06/2014 3:06 AM EDT) Sodium, Urine 85 mmol/L CERNER MILLENNIUM Urine specimen (specimen) 01/06/2014 3:06 AM EDT 01/06/2014 3:15 AM EDT Narrative Resulting Agency Comment Spec In Lab Kenia Bauman MD URINE ORDERABLES Performing Organization Address [facility] de Phone Number [facility] * (ABNORMAL) Urinalysis with microscopic (01/06/2014 3:06 AM EDT) Glucose, Urine Dipstick Negative Negative mg/dL CERNER MILLENNIUM Protein, Urine Dipstick 30(A) Negative mg/dL CERNER MILLENNIUM Bilirubin, Urine Dipstick [...] Negative mcL CERNER MILLENNIUM Appearance, Urine Dipstick Hazy(A) Clear CERNER MILLENNIUM Specific [place] Urine Automated 1.019 1.002 - 1.030 CERNER MILLENNIUM Color, Urine Dipstick Yellow Yellow CERNER MILLENNIUM RBC, Urine 2 0 - 3 /HPF CERNER MILLENNIUM WBC, Urine 4(H) 0 - 3 /HPF CERNER MILLENNIUM Squamous Epithelial Cells, Urine 1 <=4 /HPF CERNER MILLENNIUM Hyaline Casts, Urine 21(H) 0 - 2 /LPF CERNER MILLENNIUM Granular Casts, Urine 1(H) <=0 /LPF CERNER MILLENNIUM Calcium Oxalate Crystal, Urine Occasional(A ) None /HPF CERNER MILLENNIUM Amorphous Crystals, Urine Occasional(A ) None /HPF CERNER MILLENNIUM Urine specimen (specimen) 01/06/2014 3:06 AM EDT 01/06/2014 3:15 AM EDT Narrative Resulting Agency Comment Spec In Lab Kenia Bauman MD URINE ORDERABLES CERNER MILLENNIUM * (ABNORMAL) Cardiac Enzymes (01/06/2014 2:50 AM EDT) Pathologist [facility] [place] Troponin-T 0.05(H) <=0.03 ng/mL CERNER MILLENNIUM Comment: 0.03 ng/mL: Represents the 99th percentile upper reference limit for normals. >0.03 ng/mL: Elevated cardiac troponin T level indicative of myocardial damage. Diagnosis of acute, evolving or recent DC requires a typical rise and gradual fall [...] consensus document of the Joint Society of Cardiology/[place] College of Cardiology Committee for the redefinition of myocardial infarction. ??Journal of the [place] College of Cardiology 2000; 36: 959-969] Creatine Kinase 101 0 - 200 unit/L CERNER MILLENNIUM Blood specimen (specimen) 01/06/2014 2:50 AM EDT 01/06/2014 2:59 AM EDT Narrative Resulting Agency Comment Spec In Lab Kenia Bauman MD CHEMISTRY ORDERABLES MONICA BENITEZIUM * (ABNORMAL) Differential, Automated (01/06/2014 2:50 AM EDT) Neutrophil % 62.9 34.0 - 71.0 % CERNER MILLENNIUM Neutrophil Absolute 6.93(H) 1.50 - 6.30 x10(3)/mc L CERNER MILLENNIUM Lymph % 28.8 19.0 - 53.0 % CERNER MILLENNIUM Lymphocytes Abs 3.2 1.0 - 3.6 x10(3)/mc L CERNER MILLENNIUM Monocyte % 5.3 4.0 - 13.0 % CERNER MILLENNIUM Monocyte Abs 0.6 0.2 - 1.0 x10(3)/mc L CERNER MILLENNIUM Eos % 2.5 0.0 - 7.0 % CERNER MILLENNIUM Eosinophils Abs 0.3 0.0 - 0.5 x10(3)/mc L CERNER MILLENNIUM Basophil % 0.2 0.0 - 2.0 % CERNER MILLENNIUM Baso Absolute 0.0 0.0 [...] differential will be performed. Immature Gran Absolute 0.03 0.00 - 0.05 x10(3)/mc L CERNER MILLENNIUM Blood specimen (specimen) 01/06/2014 2:50 AM EDT 01/06/2014 2:58 AM EDT Narrative Resulting Agency Comment Spec In Lab Kenia Bauman MD HEMATOLOGY ORDERABLE S CERNER MILLENNIUM * (ABNORMAL) Hemogram (01/06/2014 2:50 AM EDT) White Blood Cell 11.0(H) 4.0 - 10.0 x10(3)/mc L CERNER MILLENNIUM Red Blood Cell 4.40(L) 4.63 - 6.08 x10(6)/mc L CERNER MILLENNIUM Hemoglobin 13.0(L) 13.7 - 17.5 gm/dL CERNER MILLENNIUM Hematocrit 39.2(L) 40.0 - 51.0 % CERNER MILLENNIUM Mean Cell Volume 89.1 79.0 - 92.0 fL CERNER MILLENNIUM Mean Cell Hemoglobin 29.5 25.6 - 32.2 pg CERNER MILLENNIUM Mean Cell Hemoglobin Concentration 33.2 32.0 - 36.5 gm/dL CERNER MILLENNIUM Platelet 152 145 - 370 x10(3)/mc L CERNER MILLENNIUM RDW Standard Deviation 48.2(H) 35.0 - 46.0 fL CERNER MILLENNIUM RDW coefficient of variation 14.9(H) 10.9 - 14.4 % CERNER MILLENNIUM Mean Platelet Volume 10.0 9.0 - 12.0 fL CERNER MILLENNIUM Blood specimen (specimen) 01/06/2014 2:50 AM EDT 01/06/2014 2:58 AM EDT Narrative Resulting Agency Comment Spec In Lab Kenia Bauman MD HEMATOLOGY ORDERABLE S CERNER MILTONENNIUM * (ABNORMAL) Magnesium (01/06/2014 2:50 AM EDT) Magnesium 0.67(L) 0.69 - 1.07 mmol/L CERNER MILLENNIUM Blood specimen (specimen) 01/06/2014 2:50 AM EDT 01/06/2014 2:58 AM EDT Narrative Resulting Agency Comment Spec In Lab Kenia Bauman MD CHEMISTRY ORDERABLES Performing Organization Address City/[facility] de Phone Number CERNER MILLENNIUM * (ABNORMAL) Lipid panel (fasting) (01/06/2014 2:50 AM EDT) Cholesterol, Total 55 <=199 mg/dL CERNER MILLENNIUM Comment: Recommendations of the NCEP Adult Treatment Panel for the following risk cutoff thresholds for the [place] population: Desirable: <200 mg/dL Borderline High: 200-239 mg/dL High: > or = 240 mg/dL Triglyceride 148 <=149 mg/dL CERNER MILLENNIUM Comment: Reference Range: Normal triglycerides: ??<150 mg/dL Borderline high: ??150-199 mg/dL High: ??200-499 mg/dL Very high: ??>vc=875 mg/dL TATI 2001; 285(19):7194-8228 HDL Cholesterol 26(L) >=40 mg/dL CER NER MILLENNIUM Comment: Reference range: ??Low HDL: ?? < 40 mg/dL ??Normal: ?40-60 mg/dL ??Desirable: > 60 mg/dL TATI 2001; 285(19):8898-4904 LDL Cholesterol -1 <=99 mg/dL CER NER MILLENNIUM Comment: Reference range: ?? Optimal: ?<100 mg/dL ?? Near Optimal/Above Optimal: ?? 100-129 mg/dL ?? Borderline high: ?130-159 mg/dL ?? High: ? 160-189 mg/dL ?? Very high: ?>pm=713 mg/dL TATI 2001: 285(19):3295-0448 Cholesterol/HDL Ratio 2.1 ratio [facility] Comment: A Cholesterol to HDL ratio below 4:1 is desirable. ??Studies suggest that increased CAD risk occurs at ratios above 5 for females and above 6 for men. ? [place] Heart Association ??(http://www.americanheart.org) ? Yenny Int Med, 1994; 121:641 ? AM J Med, 1998; 105(1A):48S Blood specimen (specimen) 01/06/2014 2:50 AM EDT 01/06/2014 2:58 AM EDT Narrative Resulting Agency Comment Spec In Lab Kenia Bauman MD CHEMISTRY ORDERABLES [facility] * (ABNORMAL) Basic Metabolic Panel (non-fasting) (01/06/2014 2:50 AM EDT) [facility] Glucose 107 60 - 199 mg/dL [facility] Comment:Diabetes: >=200 mg/d L plus symptoms Blood Urea Nitrogen 31(H) 10 - 20 mg/dL [facility] MILL[facility]NIUM Creatinine 1.41 0.80 - 1.50 mg/dL [facility] MILLENNIUM Comment: Please note that the pediatric reference intervals supplied above were not validated at [facility]. Results from pediatric patients should be interpreted in conjunction to the patient's age, height and muscle mass. Sodium 140 135 - 145 mmol/L [facility] MILLENNIUM Potassium 4.4 3.5 - 5.0 mmol/L [facility] MILLENNIUM Comment: Please note: ??Patients with WBC >100,000 may have falsely elevated Potassium levels. ??For accurate Potassium quantification in these patients send serum separator tube (gold top) for subsequent determinations. ??Contact the Clinical Chemistry Laboratory if there are any questions. Chloride 102 98 - 107 mmol/L CERNER MILLENNIUM Carbon Dioxide 25 22 - 31 mmol/L CERNER MILLENNIUM Anion Gap 13 5 - 15 mmol/L CERNER MILLENNIUM Calcium 9.8 8.5 - 10.5 mg/dL CERNER MILLENNIUM Est Glomerular Filtration Rate 51(L) >=60 CERNER MILLENNIUM Comment: This estimated [...] the following links into your internet browser. [email or web address] Blood specimen (specimen) 01/06/2014 2:50 AM EDT 01/06/2014 2:58 AM EDT Narrative Resulting Agency Comment Spec In Lab Kenia Bauman MD CHEMISTRY ORDERABLES MONICA PERALTA * EKG 12 Lead (01/06/2014 2:01 AM EDT) Ventricular rate 69 BPM MUSE SYSTEM Atrial Rate 69 BPM MUSE SYSTEM P-R Interval 212 ms MUSE SYSTEM QRS Duration 126 ms MUSE SYSTEM Q-T Interval 416 ms MUSE SYSTEM QTC Calculated (Bezet) 445 ms MUSE SYSTEM Calculated P [place] 18 degrees MUSE SYSTEM Calculated R [place] -55 degrees MUSE SYSTEM Calculated T [place] -70 degrees MUSE SYSTEM INTERPRETATION Sinus rhythm with 1st degree A-V block Left anterior fascicular block Non-specific intra-ventricula r conduction block T wave abnormality, consider inferior ischemia T wave abnormality, consider anterolateral ischemia Abnormal ECG Confirmed by MD Thomas Douglas ([id number]) on 01/07/2014 4:01:06 PM MUSE SYSTEM 01/06/2014 2:01 AM EDT 01/07/2014 4:01 PM EDT Unknown ECG ORDERABLES [facility] SYSTEM documented in this encounter Visit Diagnoses [...] to induce or maintain moderate sedation per [facility] Moderate Sedation Protocol, Not to exceed 50 [...] to induce or maintain moderate sedation per [facility] Moderate Sedation Protocol, Not to exceed 50 [...] than 145 sec times 2 - call senior data warehouse developer See Bolus dosing guidance for aPTT values [...] to induce or maintain moderate sedation per [facility] Moderate Sedation Protocol, Not to exceed 1 [...] to induce or maintain moderate sedation per [facility] Moderate Sedation Protocol, Not to exceed 1 [...] EVERY 4 HOURS PRN, Pain, Starting on Thu01/10/14 at 1823, Until Thu01/11/14 at 1539, May repeat in 30 minutes if inadequate (Total maximum daily dose acetaminophen is 4 gm), Cath (Recovery-Hospital Unit) Given 01/11/2014 1:32 PM EDT 1 tablet [...] CONTINUOUS, Starting on Thu01/06/14 at 1630, Until Thu01/07/14 at 0029 Rate/Dose Verify 01/06/2014 10:00 PM [...] 0847 (Given - Provider: Ervin Fontaine, NAHUN) BUpivacaine (PF) (MARCAINE) 0.5 % (5 mg/mL) [...] Suspected): Prophylaxis 2105 (Given - Provider: Yamile Raya, RN) 0558 (Given - Provider: Yamile Raya, RN)1201 (Given - Provider: Ervin Fontaine, NAHUN) ceFAZolin (ANCEF) 2g in dextrose 5% 50 mL (COMPLETED) 2 g, Intravenous, ONCE, 1 dose, On Thu01/10/14 at 1500, EP (Intra-Procedure), Indication for (Active or Suspected): Prophylaxis 1515 (Given - Provider: Yaron Don, NAHUN) clopidogrel (PLAVIX) tablet 75 mg (CANCELED) 75 [...] Fontaine RN)1733 (Given - Provider: Ervin Fontaine RN)2012 (Given - Provider: Yamile Raya RN)2345 (Given [...] Oral, 3 TIMES DAILY PRN, Starting on 01/07/14 at 1623, Until Thu01/11/14 at 1539, Anxiety, Routine 043 (Given - Provider: Teresita Lozano RN)2011 (Given - Provider: Yamile Raya RN) 2138 (Given - Provider: Yamile Raya RN) fentaNYL 50mcg/mL injection () 25-50 mcg, Intravenous, EVERY 5 MIN PRN, Starting on Thu01/10/14 at 1444, Until Thu01/11/14 at 0043, Pain, As needed to induce or maintain moderate sedation per [facility] [place] Moderate Sedation Protocol, Not to exceed 50 [...] to induce or maintain moderate sedation per [facility] [place] Moderate Sedation Protocol, Not to exceed 1 [...] EVERY 4 HOURS PRN, Pain, Starting on Thu01/10/14 at 1823, Until Thu01/11/14 at 1539, May repeat in 30 minutes if inadequate (Total maximum daily dose acetaminophen is 4 gm), Cath (Recovery-Hospital Unit) 1840 (Given - Provider: Loraine Saldivar RN [...] RN) documented in this encounter Care Teams Hat [employer] Relationship Specialty Start Date End Date Jennifer Haro MD PCP - General 01/07/12 01/30/14 documented as of this encounter
--- OUTSIDE RECORDS SUMMARY | 2024-04-19 15:31 | XMS_ITS | Encounter Summary ---
Author Organization [facility] Address [facility] [place] [address] Care Team Providers Care Lead Security Officer Name Role Phone Jennifer Haro MD Primary Care Provider [phone] Encounter Details Date Type Department Care Team (Late st Contact Info) Description 01/10/2014 3:00 PM EDT - 01/10/2014 5:00 PM EDT Surgery [place] [address] Edy Berry MD [facility] [place] [address] ELECTROPHYSIOLOGY PROCEDURE Social History Tobacco Use Types [...] a 91 day new device check at [facility]. 4. Transtelephonic device follow [...] 8:10 AM Kit Self MD [facility] Follow-Up Appointments Date and Time Provider and Specialty Location Jan 13, 2014 @ 2:[address] [facility] Doctor: Kenia Bauman MD Your Primary Care Provider: JENNIFER HARO MD [phone] For questions regarding this document or issues relating to this hospitalization on the Medical Service, please contact your inpatient physician through the [facility] Rewinder Operator Helper . Issues afterhours and on weekends will [...] times daily. 90 tablet 6 05/14/2013 01/27/2017 [place]-3 Fatty Acids (FISH OIL) 500 mg Cap Take by mouth daily. 01/14/2016 lamotrigine (LAMICTAL) 100 mg tablet Take 200 mg by mouth daily. 09/01/2018 alprazolam (XANAX XR) 3 mg 24 hr tablet Take 3 mg by mouth nightly. 09/18/2020 lactobac cmb #1-qzr-ymdnxmpklh (PROBIOTIC & ACIDOPHILUS) 300-250 million cell-mg Cap [...] answered at this time. Patient discharged to [facility] with Daughter in stable condition. Wheelchair offered; patient elected to walk. * Edy Torres PA - 01/11/2014 12:10 PM EDT Patient Name: Shahnaz Santiago Patient Age: 63 y.o. Birthdate: 1950 Admit date: 01/06/2014 Attending Physician: Kenia Bauman MD Cardiac Electrophysiology Post-Iimplant Device Interrogation Note Shahnaz Santiago is a 63 y.o. male is POD # 1 following implant of a dual chamber, [employer] ICD for sustained ventricular tachycardia. He [...] in situ V45.02 Device data: Ventricular electrode: [employer]oe X2TV [place] Model# 0292 Serial# [id number] Bipolar, steroid-tipped, active-fixation, single coil DF-4 lead Access: Left axillary vein Location: RV apex R wave, ICD: 9.6 mV Pacing threshold, ICD: 0.6 V at 0.5 ms Impedance, ICD: 913 ohms (74 ohms for shock vector) Pace the diaphragm at 10 V: No Atrial electrode: [employer] Dextrus Model# 4136 Serial# [id number] Bipolar, steroid-tipped, active-fixation IS-1 lead Access: Left axillary vein Location Right atrial appendage P wave, ICD: 4.3 mV Pacing threshold, pacemaker: 1.7 V at 0.5 ms Impedance, pacemaker: 538 ohms Pace the diaphragm at 10 V: No Pulse generator: [employer] Incepta Model# E162 Serial# [id number] DDDR ICD Location: Subcutaneous Defibrillation testing was [...] ~ 91 days. Provider: MAXIMO Leija Provider#: [id number] Consult attending physician: Estefanía Cross MD * Raul Salmeron RN - 01/11/2014 8:04 AM EDT Inpatient Post ICD Implant Teaching Note Verbal teaching was performed today [id number] with the patient including the following: -Brief generalized teaching of how ICDs function, and the patient's specific indication for ICD implant -Activity restrictions post ICD implant -Remote monitoring of the ICD via telephone (patient was given [facility] Latitude communicator today). -ICD insertion site wound [...] ICD placement today. Pt is insured with [employer] exchange. No discharge needs identified at this time. Will continue to follow for coordination of care and discharge planning. Nora Schaeffer SENIOR INTERACTION DESIGNER CRC/Stacy Pabon MSN BSN RN CRC Office of Care Managment Pager [phone] * Yamile Raya RN - 01/10/2014 6:30 [...] One episode 7 beat run VT ~150bpm. [place] warm, needed to urinate during that time. [...] in to convince him not to leave [facility] without an ICD. Will await his decision. [...] Encounter Note Patient Name: Shahnaz Santiago : [id number] MR#: [id number] Admit Date: 01/06/2014 1:50 AM Hospital Day 0 days Narrative: Shahnaz was happy and open to leather leveler visit. Assessment: We had a long conversation of what he considered that has been militating against a health life-style: smoking. Moreover he was not a confucianism person based on his experiences over the years yet accepts prayers. Intervention and Outcome: We prayed for God's healing & strength. Follow-up: Yes Time in Direct Care: 35 mins Jennifer Zimmer Steven 01/06/2014 * Stacy Pabon RN - 01/06/2014 2:17 PM EDT Office of Care Management Clinical Industrial Custodian Patient Name: Shahnaz Santiago : 1950, 63 yrs Admission Date: 01/06/2014 1:50 AM Attending: Kenia Bauman MD Order to Admit: Signed Record reviewed and patient discussed with multidisciplinary team. Lives in [place], [place] 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 He is independent and drives. Insurance: No Insurance. (Guillermo Galen CLOSET BUILDER notified) [facility] Medical/Surgical:63 [...] Pabon MSN RN Clinical Resource Coordinators Phone: [phone] Pager [phone] documented in this encounter H&P Notes * Edy Berry MD - 01/07/2014 5:02 PM EDT Inpatient Cardiac Electrophysiology Follow-up Note Date of Consultation: 01/07/2014 Admit Date: 01/06/2014 Place of Service: Inpatient Unit Reason for Consult: We are seeing Shahnaz Santiago for the evaluation of ventricular tachycardia Patient Active Problem List Diagnosis ??? ASCVD (arteriosclerotic cardiovascular disease) Overview Note: ?? Heart catheterization in [facility] in 2007 with placement of a stent in an unspecified vessel ?? Repeat heart catheterization in 2008 with placement of stents to both the LAD and circumflex ?? Followup heart catheterization in 2008 showing stable results in both vessels ?? Her current chest discomfort in a somewhat atypical pattern beginning fall ?? Nuclear stress test at [facility] in [place], [place] May 02, 2013 during which he developed left shoulder and arm discomfort during submaximal exercise on the treadmill and after which he was converted to a pharmacologic test; nuclear imaging showed ejection fraction of 45% with a partially reversible inferior defect ?? Cath [facility] 05/13/2013: normal left main, mild diffuse disease [...] ASCVD (PCI to Cx, LAD; no hx AK) and tobacco use. Andressa recently had a [...] the next morning, and he went to [facility], where ECG showed VT. He was cardioverted with return to NSR with 1st degree AVB, sub-mm STD in the lateral leads. His troponin was indeterminate. The patient was transferred to the [facility], where he has remained in NSR. [...] mg by mouth 2 times daily. ??? [place]-3 Fatty Acids (FISH OIL) 500 mg Cap Take by mouth daily. ??? multivitamin capsule Take 1 capsule by mouth daily. ??? LANCETS MISC by Misc.(Non-Drug; Combo Route) route. ??? lamotrigine (LAMICTAL) 100 mg tablet Take 100 mg by mouth daily. ??? alprazolam (XANAX XR) 3 mg 24 hr tablet Take 3 mg by mouth every morning. ? ? lactobac cmb #7-lit-tcvietcbgf (PROBIOTIC & ACIDOPHILUS) 300-250 million cell- mg [...] of cardiac arrest, pt believes due to AK at age of 53. Heavy smoker. His mother had PVD. 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 Heart catheterization in [facility] in 2007 with placement of a stent in an unspecified vessel ?? Repeat heart catheterization in 2008 with placement of stents to both the LAD and circumflex ?? Followup heart catheterization in 2008 showing stable results in both vessels ?? Her current chest discomfort in a somewhat atypical pattern beginning fall ?? Nuclear stress test at [facility] in [place], [place] May 02, 2013 during which he developed left shoulder and arm discomfort during submaximal exercise on the treadmill and after which he was converted to a pharmacologic test; nuclear imaging showed ejection fraction of 45% with a partially reversible inferior defect ?? Cath [facility] 05/13/2013: normal left main, mild diffuse disease [...] ASCVD (PCI to Cx, LAD; no hx AK) and tobacco use. [place] recently had a [...] the next morning, and he went to [facility], where ECG showed VT. He was cardioverted with return to NSR with 1st degree AVB, sub-mm STD in the lateral leads. His troponin was indeterminate. The patient was transferred to the [facility], where he has remained in NSR. [...] mg by mouth 2 times daily. ??? [place]-3 Fatty Acids (FISH OIL) 500 mg Cap Take by mouth daily. ??? multivitamin capsule Take 1 capsule by mouth daily. ??? LANCETS MISC by Misc.(Non-Drug; Combo Route) route. ??? lamotrigine (LAMICTAL) 100 mg tablet Take 100 mg by mouth daily. ??? alprazolam (XANAX XR) 3 mg 24 hr tablet Take 3 mg by mouth every morning. ? ? lactobac cmb #3-rah-gqhnhanqjq (PROBIOTIC & ACIDOPHILUS) 300-250 million cell- mg [...] of cardiac arrest, pt believes due to AK at age of 53. Heavy smoker. His mother had PVD. 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 He should ideally check pulse for any recurrent symptoms of VT (e.g. Weakness, SOB) and not delay hospital presentation as he did this time. Will discuss more with him in AM. * Kenia Bauman MD - 01/06/2014 2:45 AM EDT Cardiology Admission History and Physical Patient Name: Shahnaz Santiago Service: [address] Responsible Attending: Kenia Bauman MD, MD PCP: JENNIFER HARO MD PCP phone #: [phone] ID/Chief Complaint: 63 yo man with ASCVD [...] a chronic, has beenaffecting him 20 years, drwmygeua-ys-pcskdjpkvu, sternally located discomfort that is constant and [...] change from his baseline he went to [facility] ED for evaluation.There he was found to be tachycardic in the 160s, BP 108/64 and sating 96% on room air. An EKG revealed a monomorphic tachycardia. He was given versed 4mg, cardiovert with 120J biphasic. The patient's repeat EKG showed sinus rhythm with a 1st degree AV block OK of 214ms, as well as new T-wave inversions and sub 1mm ST depressions in V3-V6. His troponin was an indeterminate value 0.13 (0.06-0.59 =indeterminate). The patient was then transferred to [facility]. , OSH labs prior to transfer: 15.2 [...] (arteriosclerotic cardiovascular disease) ?? Heart catheterization in [facility] in 2007 with placement of a stent in an unspecified vessel ?? Repeat heart catheterization in 2008 with placement of stents to both the LAD and circumflex ?? Followup heart catheterization in 2008 showing stable results in both vessels ?? Her current chest discomfort in a somewhat atypical pattern beginning fall ?? Nuclear stress test at [facility] in [place], [place] May 02, 2013 during which he developed left shoulder and arm discomfort during submaximal exercise on the treadmill and after which he was converted to a pharmacologic test; nuclear imaging showed ejection fraction of 45% with a partially reversible inferior defect ?? Cath [facility] 05/13/2013: normal left main, mild diffuse disease [...] Cap Take by mouth daily. Generic drug: [place]-3 Fatty Acids Refills: 0 glipiZIDE 5 mg [...] by mouth daily. Generic drug: lactobac cmb #1-rmv-twfbdbjced Refills: 0 rosuvastatin 20 mg Tab Commonly [...] ischemia Kalyan Babb, PGY-2 Team Pager # [phone] Cardiology Attending Addendum I have interviewed and [...] 01/12/2014 11:50 AM EDTAssociated Order(s): SCAN DOC: SYSTEMS ADMIN documented in this encounter Miscellaneous Notes * [...] a chronic, has beenaffecting him 20 years, wjyqbevvu-fy-ggilrcklqz, sternally located discomfort that is constant and [...] change from his baseline he went to [facility] ED for evaluation.There he was found to be tachycardic in the 160s, BP 108/64 and sating 96% on room air. An EKG revealed a monomorphic tachycardia. He was given versed 4mg, cardiovert with 120J biphasic. The patient's repeat EKG showed sinus rhythm with a 1st degree AV block OK of 214ms, as well as new T-wave inversions and sub 1mm ST depressions in V3-V6. His troponin was an indeterminate value 0.13 (0.06-0.59 =indeterminate). The patient was then transferred to [facility]. 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 A consult to smoking cessation was placed [...] (CL) of 1070 ms were as follows: OK: 230 ms HV: 40 ms (?) QRS: 110 ms (no manifest pre-excitation) QT: 450 ms 2) Atrial overdrive pacing (10 mA @ 2 ms) was accomplished from the low right atrium, and the atrioventricular (AV) Wenckebach block CL was observed at 500 ms. There was no pre-excitation or conduction aberrancy identified. The evceelcg-kr-WHD < QRS-QRS just prior to the observed [...] Cap Take by mouth daily. Generic drug: [place]-3 Fatty Acids Refills: 0 glipiZIDE 5 mg [...] by mouth daily. Generic drug: lactobac cmb #8-fyp-btbnhtnvop Refills: 0 rosuvastatin 20 mg Tab Commonly [...] Center 02/07/2014 8:10 AM Kit Self MD [facility] Cardio [facility] Follow-Up Appointments Date and Time Provider and Specialty Location Jan 13, 2014 @ 2:[address] [facility] Your Inpatient Doctor: Kenia Bauman MD Your Primary Care Provider: JENNIFER HARO MD [phone] For questions regarding this document or issues relating to this hospitalization on the Medical Service, please contact your inpatient physician through the [facility] Rewinder Operator Helper . Issues afterhours and on weekends will be handled by the Hospitalist staff on-call. Future Appointments and Orders Future Appointments: Provider: Department: Dept Phone: Center: 02/07/2014 8:10 AM Kit Self MD Cardiology [phone] [facility] Joint Appt Nurse One Cardiology Antoni, NAHUN MOTLEY 4A [phone] [facility] 04/10/2014 9:30 AM Raul Salmeron RN Cardiology [phone] [facility] For questions regarding this document or issues relating to this hospitalization on the Medical Service, please contact your inpatient physician through the [facility] Rewinder Operator Helper . Issues afterhours and on weekends will be handled by the Street Light Cleaner staff on-call. Signed: KENIA BAUMAN MD * [...] in the out pt CR program at [facility]. He was admitted with LLOYD and VT. Cardiac cath showed no ischemic etiology of sx. Being considered for ICD. Will refer him back to the [facility] prog at discharge * Miscellaneous - Provider, Scanning - 01/07/2014 2:41 PM EDT * Op Note - José Manuel Cole MD - 01/06/2014 5:34 PM EDT Electrophysiology Study Rewinder Operator Helper: José Manuel Cole MD Indication: Ventricular tachycardia [...] (CL) of 1070 ms were as follows: OK: 230 ms HV: 40 ms (?) QRS: 110 ms (no manifest pre-excitation) QT: 450 ms 2) Atrial overdrive pacing (10 mA @ 2 ms) was accomplished from the low right atrium, and the atrioventricular (AV) Wenckebach block CL was observed at 500 ms. There was no pre-excitation or conduction aberrancy identified. The rkwusskc-bv-DXM < QRS-QRS just prior to the observed [...] AM EST Hospital Encounter Non-[place] [address] Arrived documented as of this encounter Procedures Procedure Name Priority Date/Time Associated Diagnosis Comments SYSTEMS ADMIN SCAN 01/12/2014 11:50 AM EDT POCT GLUCOSE [...] 3:40 AM EDT DIFFERENTIAL, AUTOMATED Routine 01/08/20 14 3:40 AM EDT CBC (WITH DIFF) Routine [...] Routine 01/07/20 3:58 PM EDT CARDIAC ENZYMES ([facility]) Routine 01/06/2014 12:40 PM EDT POCT GLUCOSE Routine 01/06/2014 12:15 PM EDT CARDIAC ENZYMES ([facility]) Routine 01/06/2014 11:30 AM EDT APTT STAT [...] 01/07/20 14 2:50 AM EDT CARDIAC ENZYMES ([facility]) Routine 01/06/2014 2:50 AM EDT CBC (WITH DIFF) Routine 01/06/2014 2:50 AM EDT MAGNESIUM Routine 01/06/2014 2:50 AM EDT LIPID PANEL (REFLEX DIRECT LDL) Routine 01/06/2014 2:50 AM EDT BASIC METABOLIC PANEL Routine 01/06/2014 2:50 AM EDT EKG 12-LEAD Routine 01/06/2014 2:01 AM EDT documented in this encounter Results * SCAN DOC: SYSTEMS ADMIN (01/12/2014 11:50 AM EDT) Anatomical Region Laterality Modality Other Narrative 01/12/2014 11:53 AM EDT Procedure Note Provider, Scanning - 01/12/2014 11:50 AM EDT Scanning Provider MEDIA MGR SCAN EXT O RDR/RSLT * (ABNORMAL) POCT Glucose (01/11/2014 11:55 AM EDT) Glucose, POC 285(H) 60 - 199 mg/dL STACY[facility]LM[facility] PERALTA Comment: Supplemental ranges: <140 mg/dL before meals <180 mg/dL all other times of the day Blood specimen (specimen) 01/11/2014 11:55 AM EDT 01/11/2014 11:55 AM EDT Kenia Bauman MD POINT OF CARE TEST O RDERABLES [facility] * XR chest routine PA & [...] (ABNORMAL) Differential, Automated (01/11/2014 3:56 AM EDT) Pathologist [facility] Neutrophil % 64.0 34.0 - 71.0 % [...] Kenia Bauman MD HEMATOLOGY ORDERABLE S CERDELMAR BENITEZIUM * (ABNORMAL) Hemogram (01/11/2014 3:56 AM EDT) [...] Lab Kenia Bauman MD HEMATOLOGY ORDERABLE S STACYDELMAR ROSEENNIUM * Magnesium (01/11/2014 3:56 AM EDT) Magnesium [...] the following links into your internet browser. [email or web address] Blood specimen (specimen) 01/11/2014 3:56 AM EDT 01/11/2014 4:21 AM EDT Narrative Resulting Agency Comment Spec In Lab Kenia Bauman MD CHEMISTRY ORDERABLES Performing Organization Address [facility] de Phone Number [facility] * POCT Glucose (01/11/2014 3:46 AM EDT) Glucose, POC 137 60 - 199 mg/dL [facility] Comment: Supplemental ranges: <140 mg/dL before meals <180 mg/dL all other times of the day Blood specimen (specimen) 01/11/2014 3:46 AM EDT 01/11/2014 3:46 AM EDT Kenia Bauman MD POINT OF CARE TEST O RDERABLES Performing Organization Address [facility] de Phone Number [facility] * POCT Glucose (01/10/2014 11:57 PM EDT) Glucose, POC 173 60 - 199 mg/dL [facility] Comment: Supplemental ranges: <140 mg/dL before meals <180 mg/dL all other times of the day Blood specimen (specimen) 01/10/2014 11:57 PM EDT 01/10/2014 11:57 PM EDT Kenia Bauman MD POINT OF CARE TEST O RDERABLES Performing Organization Address [facility] de Phone Number [facility] * (ABNORMAL) POCT Glucose (01/10/2014 8:31 PM EDT) Glucose, POC 201(H) 60 - 199 mg/dL [facility] Comment: Supplemental ranges: <140 mg/dL before meals <180 mg/dL all other times of the day Blood specimen (specimen) 01/10/2014 8:31 PM EDT 01/10/2014 8:31 PM EDT Kenia Bauman MD POINT OF CARE TEST O [place] Performing Organization Address [facility] Co de Phone Number [facility] * POCT Glucose (01/10/2014 6:04 PM EDT) Glucose, POC 164 60 - 199 mg/dL [facility] Comment: Supplemental ranges: <140 mg/dL before meals <180 mg/dL all other times of the day Blood specimen (specimen) 01/10/2014 6:04 PM EDT 01/10/2014 6:04 PM EDT Kenia Bauman MD POINT OF CARE TEST O [place] Performing Organization Address [facility] Co de Phone Number [facility] * Electrophysiology Procedure (01/10/2014 5:19 PM EDT) [...] with O-silk. Final Parameters: Ventricular electrode: ?? [employer] [place] Model# 0292 Serial# [id number] ??Bipolar, steroid-tipped, active-fixation, ??single coil DF-4 lead ??Access: ? Left axillary vein ??Location: ?RV apex ??R wave, ICD: ? 9.6 mV ??Pacing threshold, ICD: ? 0.6 V at 0.5 ms ??Impedance, ICD: ? 913 ohms (74 ohms for shock vector) ??Pace the diaphragm at 10 V: ??No Atrial electrode: ?? [employer] Dextrus Model# 4136 Serial# [id number] ??Bipolar, steroid-tipped, active-fixation IS-1 lead ??Access: ? Left axillary vein ??Location ? Right atrial appendage ??P wave, ICD: ? 4.3 mV ??Pacing threshold, pacemaker: ??1.7 V at 0.5 ms ??Impedance, pacemaker: ??538 ohms ??Pace the diaphragm at 10 V: ??No Pulse generator: ? [employer] Incepta Model# E162 Serial# [id number] DDDR ICD ??Location: ?Subcutaneous Defibrillation testing was [...] major muscle withO-silk. Final Parameters: Ventricular electrode: [employer] [place] Model# 0292 Serial# [id number] Bipolar, steroid-tipped, active-fixation, single coil DF-4 lead Access: Left axillary vein Location: RV apex R wave, ICD: 9.6 mV Pacing threshold, ICD: 0.6 V at 0.5 ms Impedance, ICD: 913 ohms (74 ohms for shock vector) Pace the diaphragm at 10 V: No Atrial electrode: [employer] Dextrus Model# 4136 Serial# [id number] Bipolar, steroid-tipped, active-fixation IS-1 lead Access: Left axillary vein Location Right atrial appendage P wave, ICD: 4.3 mV Pacing threshold, pacemaker: 1.7 V at 0.5 ms Impedance, pacemaker: 538 ohms Pace the diaphragm at 10 V: No Pulse generator: [employer] Incepta Model# E162 Serial# [id number] DDDR ICD Location: Subcutaneous Defibrillation testing was [...] (ABNORMAL) POCT Glucose (01/10/2014 11:39 AM EDT) Glucose, POC 218(H) 60 - 199 mg/dL [facility] Comment: Supplemental ranges: <140 mg/dL before meals <180 mg/dL all other times of the day Blood specimen (specimen) 01/10/2014 11:39 AM EDT 01/10/2014 11:39 AM EDT Kenia Bauman MD POINT OF CARE TEST O RDERALOREE Performing Organization Address [facility] de Phone Number [facility] B[facility] * (ABNORMAL) POCT Glucose (01/10/2014 7:36 AM EDT) Glucose, POC 242(H) 60 - 199 mg/dL [facility] Comment: Supplemental ranges: <140 mg/dL before meals <180 mg/dL all other times of the day Blood specimen (specimen) 01/10/2014 7:36 AM EDT 01/10/2014 7:36 AM EDT Kenia Bauman MD POINT OF CARE TEST O [place] Performing Organization Address [facility] de Phone Number [facility] * POCT Glucose (01/10/2014 4:25 AM EDT) Glucose, POC 153 60 - 199 mg/dL [facility] Comment: Supplemental ranges: <140 mg/dL before meals <180 mg/dL all other times of the day Blood specimen (specimen) 01/10/2014 4:25 AM EDT 01/10/2014 4:25 AM EDT Kenia Bauman MD POINT OF CARE TEST O RDMARY Performing Organization Address [facility] de Phone Number [facility] * (ABNORMAL) Differential, Automated (01/10/2014 4:21 AM EDT) Neutrophil % 45.9 34.0 - 71.0 % [facility] Neutrophil Absolute 4.06 1.50 - 6.30 x10(3)/mc [...] ORDERABLE S Performing Organization Address [facility] [facility] Co de Phone Number CERNER MILLENNIUM * (ABNORMAL) Magnesium (01/10/2014 4:21 AM EDT) Magnesium 0.67(L) 0.69 - 1.07 mmol/L CERNER MILLENNIUM Blood specimen (specimen) 01/10/2014 4:21 AM EDT 01/10/2014 4:36 AM EDT Narrative Resulting Agency Comment Spec In Lab Kenia Bauman MD CHEMISTRY ORDERABLES Performing Organization Address [facility] de Phone Number CERNER MILLENNIUM * Basic Metabolic Panel (non-fasting) (01/10/2014 4:21 AM EDT) Glucose 161 60 - 199 mg/dL CERNER MILLENNIUM [...] Anion Gap 12 5 - 15 mmol/L [facility] Calcium 9.7 8.5 - 10.5 mg/dL [facility] MILLENNIUM Est Glomerular Filtration Rate >60 >=60 [facility] MILLENNIUM Comment: This estimated GFR (eGFR) value [...] the following links into your internet browser. [email or web address] [email or web address] Blood specimen (specimen) 01/10/2014 4:21 AM EDT 01/10/2014 4:36 AM EDT Narrative Resulting Agency Comment Spec In Lab Kenia Bauman MD CHEMISTRY ORDERABLES Performing Organization Address [facility] Co de Phone Number [facility] * POCT Glucose (01/09/2014 11:25 PM EDT) Glucose, POC 164 60 - 199 mg/dL [facility] Comment: Supplemental ranges: <140 mg/dL before meals <180 mg/dL all other times of the day Blood specimen (specimen) 01/09/2014 11:25 PM EDT 01/09/2014 11:25 PM EDT Kenia Bauman MD POINT OF CARE TEST O RDERABLES Performing Organization Address [facility] Co de Phone Number [facility] * (ABNORMAL) POCT Glucose (01/09/2014 8:03 PM EDT) Glucose, POC 204(H) 60 - 199 mg/dL [facility] Comment: Supplemental ranges: <140 mg/dL before meals <180 mg/dL all other times of the day Blood specimen (specimen) 01/09/2014 8:03 PM EDT 01/09/2014 8:03 PM EDT Kenia Bauman MD POINT OF CARE TEST O RDERABLES Performing Organization Address [facility] Co de Phone Number [facility] EMMANUELIUM * (ABNORMAL) POCT Glucose (01/09/2014 4:34 PM EDT) Glucose, POC 231(H) 60 - 199 mg/dL [facility] MILLENNIUM Comment: Supplemental ranges: <140 mg/dL before meals <180 mg/dL all other times of the day Blood specimen (specimen) 01/09/2014 4:34 PM EDT 01/09/2014 4:34 PM EDT Kenia Bauman MD POINT OF CARE TEST O RDERABLES Performing Organization Address [facility] de Phone Number CERDELMAR ROSEENNIUM * (ABNORMAL) POCT Glucose (01/09/2014 11:44 AM EDT) Glucose, POC 280(H) 60 - 199 mg/dL [facility] MILLENNIUM Comment: Supplemental ranges: <140 mg/dL before meals <180 mg/dL all other times of the day Blood specimen (specimen) 01/09/2014 11:44 AM EDT 01/09/2014 11:44 AM EDT Kenia Bauman MD POINT OF CARE TEST O RDERALOREE Performing Organization Address [facility] Co de Phone Number CERDELMAR ROSEENNIUM * POCT Glucose (01/09/2014 7:51 AM EDT) Glucose, POC 148 60 - 199 mg/dL [facility] MILLENNIUM Comment: Supplemental ranges: <140 mg/dL before meals <180 mg/dL all other times of the day Blood specimen (specimen) 01/09/2014 7:51 AM EDT 01/09/2014 7:51 AM EDT Kenia Bauman MD POINT OF CARE TEST O RDERABLES Performing Organization Address [facility] Co de Phone Number CERDELMAR ROSEENNIUM * Basic Metabolic Panel (non-fasting) (01/09/2014 4:32 AM EDT) [facility] Glucose 124 60 - 199 mg/dL CERNER [...] the following links into your internet browser. [email or web address] Blood specimen (specimen) 01/09/2014 4:32 AM EDT 01/09/2014 4:38 AM EDT Narrative Resulting Agency Comment Spec In Lab Kenia Bauman MD CHEMISTRY ORDERABLES [facility] SurfAirIUM * (ABNORMAL) Differential, Automated (01/09/2014 4:32 AM [...] 0.01 0.00 - 0.05 x10(3)/mc L CERNER MILTONENNIUM Blood specimen (specimen) 01/09/2014 4:32 AM EDT 01/09/2014 4:38 AM EDT Narrative Resulting Agency Comment Spec In Lab Kenia Bauman MD HEMATOLOGY ORDERABLE S MONICA PERALTA * (ABNORMAL) Hemogram (01/09/2014 4:32 AM EDT) White Blood Cell 8.0 4.0 - 10.0 x10(3)/mc L CERNER MILLENNIUM Red Blood Cell 4.83 4.63 - 6.08 x10(6)/mc L [facility] Hemoglobin 14.5 13.7 - 17.5 gm/dL [facility] Comment:Repeated & verified Hematocrit 43.0 40.0 - 51.0 % [facility] Mean Cell Volume 89.0 79.0 - 92.0 fL [facility] Mean Cell Hemoglobin 30.0 25.6 - 32.2 pg [facility] Mean Cell Hemoglobin Concentration 33.7 32.0 - 36.5 gm/dL [facility] Platelet 184 145 - 370 x10(3)/mc L [facility] RDW Standard Deviation 47.4(H) 35.0 - 46.0 fL [facility] RDW coefficient of variation 14.8(H) 10.9 - 14.4 % [facility] Mean Platelet Volume 10.3 9.0 - 12.0 fL [facility] Blood specimen (specimen) 01/09/2014 4:32 AM EDT 01/09/2014 4:38 AM EDT Narrative Resulting Agency Comment Spec In Lab Kenia Bauman MD HEMATOLOGY ORDERABLE S [facility] * Magnesium (01/09/2014 4:32 AM EDT) Pathologist [facility] Magnesium 0.76 0.69 - 1.07 mmol/L [facility] Blood specimen (specimen) 01/09/2014 4:32 AM EDT 01/09/2014 4:38 AM EDT Narrative Resulting Agency Comment Spec In Lab Kenia Bauman MD CHEMISTRY ORDERABLES [facility] * POCT Glucose (01/09/2014 4:19 AM EDT) Pathologist [facility] Glucose, POC 114 60 - 199 mg/dL [facility] Comment: Supplemental ranges: <140 mg/dL before meals <180 mg/dL all other times of the day Blood specimen (specimen) 01/09/2014 4:19 AM EDT 01/09/2014 4:19 AM EDT Kenia Bauman MD POINT OF CARE TEST O RDERABLES Performing Organization Address [facility] de Phone Number [facility] * POCT Glucose (01/09/2014 1:41 AM EDT) Glucose, POC 155 60 - 199 mg/dL [facility] Comment: Supplemental ranges: <140 mg/dL before meals <180 mg/dL all other times of the day Blood specimen (specimen) 01/09/2014 1:41 AM EDT 01/09/2014 1:41 AM EDT Kenia Bauman MD POINT OF CARE TEST O RDERABLES Performing Organization Address [facility] de Phone Number [facility] * (ABNORMAL) POCT Glucose (01/08/2014 11:19 PM EDT) Glucose, POC 252(H) 60 - 199 mg/dL [facility] Comment: Supplemental ranges: <140 mg/dL before meals <180 mg/dL all other times of the day Blood specimen (specimen) 01/08/2014 11:19 PM EDT 01/08/2014 11:19 PM EDT Kenia Bauman MD POINT OF CARE TEST O RDERABLES Performing Organization Address [facility] Phone Number [facility] * (ABNORMAL) POCT Glucose (01/08/2014 7:50 PM EDT) Glucose, POC 205(H) 60 - 199 mg/dL [facility] Comment: Supplemental ranges: <140 mg/dL before meals <180 mg/dL all other times of the day Blood specimen (specimen) 01/08/2014 7:50 PM EDT 01/08/2014 7:50 PM EDT Kenia Bauman MD POINT OF CARE TEST O RDERABLES Performing Organization Address [facility]ZIP Co de Phone Number [facility] * POCT Glucose (01/08/2014 5:17 PM EDT) Glucose, POC 194 60 - 199 mg/dL [facility] Comment: Supplemental ranges: <140 mg/dL before meals <180 mg/dL all other times of the day Blood specimen (specimen) 01/08/2014 5:17 PM EDT 01/08/2014 5:17 PM EDT Kenia Bauman MD POINT OF CARE TEST O RDERALOREE Performing Organization Address [facility] Co de Phone Number [facility] * (ABNORMAL) POCT Glucose (01/08/2014 2:21 PM EDT) Glucose, POC 230(H) 60 - 199 mg/dL [facility] Comment: Supplemental ranges: <140 mg/dL before meals <180 mg/dL all other times of the day Blood specimen (specimen) 01/08/2014 2:21 PM EDT 01/08/2014 2:21 PM EDT Kenia Bauman MD POINT OF CARE TEST O RDERALOREE Performing Organization Address [facility] Co de Phone Number [facility] * (ABNORMAL) POCT Glucose (01/08/2014 12:04 PM EDT) Glucose, POC 240(H) 60 - 199 mg/dL [facility] Comment: Supplemental ranges: <140 mg/dL before meals <180 mg/dL all other times of the day Blood specimen (specimen) 01/08/2014 12:04 PM EDT 01/08/2014 12:04 PM EDT Kenia Bauman MD POINT OF CARE TEST O RDERALOREE Performing Organization Address [facility] Co de Phone Number [facility] * POCT Glucose (01/08/2014 7:56 AM EDT) Glucose, POC 125 60 - 199 mg/dL CERNER MILLENNIUM [...] Bauman MD CHEMISTRY ORDERABLES Performing Organization Address [facility] Co de Phone Number CERNER MILLENNIUM * Differential, Automated (01/08/2014 7:03 AM EDT) Neutrophil % 46.8 34.0 - 71.0 % [...] the following links into your internet browser. [email or web address] Blood specimen (specimen) 01/08/2014 7:03 AM EDT 01/08/2014 7:08 AM EDT Narrative Resulting Agency Comment Spec In Lab Kenia Bauman MD CHEMISTRY ORDERABLES Performing Organization Address [facility] de Phone Number [facility] * (ABNORMAL) POCT Glucose (01/08/2014 3:55 AM EDT) Glucose, POC 219(H) 60 - 199 mg/dL [facility] Comment: Supplemental ranges: <140 mg/dL before meals <180 mg/dL all other times of the day Blood specimen (specimen) 01/08/2014 3:55 AM EDT 01/08/2014 3:55 AM EDT Kenia Bauman MD POINT OF CARE TEST O RDERABLES Performing Organization Address [facility] de Phone Number [facility] * POCT Glucose (01/07/2014 11:51 PM EDT) Glucose, POC 153 60 - 199 mg/dL [facility] Comment: Supplemental ranges: <140 mg/dL before meals <180 mg/dL all other times of the day Blood specimen (specimen) 01/07/2014 11:51 PM EDT 01/07/2014 11:51 PM EDT Kenia Bauman MD POINT OF CARE TEST O RDERABLES Performing Organization Address [facility] de Phone Number [facility] * POCT Glucose (01/07/2014 9:32 PM EDT) Glucose, POC 190 60 - 199 mg/dL [facility] Comment: Supplemental ranges: <140 mg/dL before meals <180 mg/dL all other times of the day Blood specimen (specimen) 01/07/2014 9:32 PM EDT 01/07/2014 9:32 PM EDT Kenia Bauman MD POINT OF CARE TEST O RDERABLES Performing Organization Address [facility] Co de Phone Number [facility] * (ABNORMAL) POCT Glucose (01/07/2014 7:36 PM EDT) Glucose, POC 223(H) 60 - 199 mg/dL [facility] Comment: Supplemental ranges: <140 mg/dL before meals <180 mg/dL all other times of the day Blood specimen (specimen) 01/07/2014 7:36 PM EDT 01/07/2014 7:36 PM EDT Kenia Bauman MD POINT OF CARE TEST O RDERALOREE Performing Organization Address [facility] de Phone Number [facility] * POCT Glucose (01/07/2014 5:32 PM EDT) Glucose, POC 180 60 - 199 mg/dL [facility] Comment: Supplemental ranges: <140 mg/dL before meals <180 mg/dL all other times of the day Blood specimen (specimen) 01/07/2014 5:32 PM EDT 01/07/2014 5:32 PM EDT Kenia Bauman MD POINT OF CARE TEST O SAMPSON Performing Organization Address [facility] de Phone Number [facility] * (ABNORMAL) POCT Glucose (01/07/2014 1:24 PM EDT) Glucose, POC 240(H) 60 - 199 mg/dL [facility] Comment: Supplemental ranges: <140 mg/dL before meals <180 mg/dL all other times of the day Blood specimen (specimen) 01/07/2014 1:24 PM EDT 01/07/2014 1:24 PM EDT Kenia Bauman MD POINT OF CARE TEST O SAM[place] Performing Organization Address [facility] de Phone Number [facility] * (ABNORMAL) Magnesium (01/07/2014 10:00 AM EDT) Magnesium 0.66(L) 0.69 - 1.07 mmol/L [facility] Blood specimen (specimen) 01/07/2014 10:00 AM EDT 01/07/2014 10:17 AM EDT Narrative Resulting Agency Comment Spec In Lab Kenia Bauman MD CHEMISTRY ORDERABLES Performing Organization Address [facility] de Phone Number MONICA PERALTA * Potassium (01/07/2014 10:00 AM EDT) Potassium 4.3 3.5 - 5.0 mmol/L [facility] Comment: Please note: ??Patients with WBC >100,000 [...] Bauman MD CHEMISTRY ORDERABLES Performing Organization Address [facility] de Phone Number MONICA PERALTA * POCT Glucose (01/07/2014 9:23 AM EDT) Glucose, POC 178 60 - 199 mg/dL [facility] Comment: Supplemental ranges: <140 mg/dL before meals <180 mg/dL all other times of the day Blood specimen (specimen) 01/07/2014 9:23 AM EDT 01/07/2014 9:23 AM EDT Kenia Bauman MD POINT OF CARE TEST O RDERABLES Performing Organization Address [facility] de Phone Number MONICA PERALTA * Differential, Automated (01/07/2014 3:40 AM EDT) Neutrophil % 60.4 34.0 - 71.0 % [facility] Neutrophil Absolute 5.37 1.50 - 6.30 x10(3)/mcL CERNER MILLENNIUM Lymph % 29.1 19.0 - 53.0 % [facility] Lymphocytes Abs 2.6 1.0 - 3.6 x10(3)/mcL [facility] MILLENNIUM Monocyte % 5.9 4.0 - 13.0 [...] ORDERABLE S Performing Organization Address [facility] Co de Phone Number [facility] MILLENNIUM * (ABNORMAL) Magnesium (01/07/2014 3:40 AM EDT) Magnesium 0.61(L) 0.69 - 1.07 mmol/L CERNER MILLENNIUM Blood specimen (specimen) 01/07/2014 3:40 AM EDT 01/07/2014 3:43 AM EDT Narrative Resulting Agency Comment Spec In Lab Kenia Bauman MD CHEMISTRY ORDERABLES Performing Organization Address [facility] de Phone Number [facility] * (ABNORMAL) Basic Metabolic Panel (non-fasting) (01/07/2014 [...] the following links into your internet browser. [email or web address] Blood specimen (specimen) 01/07/2014 3:40 AM EDT 01/07/2014 3:43 AM EDT Narrative Resulting Agency Comment Spec In Lab Kenia Bauman MD CHEMISTRY ORDERABLES Performing Organization Address [facility] de Phone Number [facility] * POCT Glucose (01/07/2014 3:39 AM EDT) Glucose, POC 95 60 - 199 mg/dL [facility] Comment: Supplemental ranges: <140 mg/dL before meals <180 mg/dL all other times of the day Blood specimen (specimen) 01/07/2014 3:39 AM EDT 01/07/2014 3:39 AM EDT Kenia Bauman MD POINT OF CARE TEST O RDERABLES Performing Organization Address [facility] Co de Phone Number [facility] * POCT Glucose (01/06/2014 11:40 PM EDT) Glucose, POC 130 60 - 199 mg/dL [facility] Comment: Supplemental ranges: <140 mg/dL before meals <180 mg/dL all other times of the day Blood specimen (specimen) 01/06/2014 11:40 PM EDT 01/06/2014 11:40 PM EDT Kenia Bauman MD POINT OF CARE TEST O RDMARY Performing Organization Address [facility] de Phone Number [facility] * POCT Glucose (01/06/2014 9:23 PM EDT) Glucose, POC 173 60 - 199 mg/dL [facility] Comment: Supplemental ranges: <140 mg/dL before meals <180 mg/dL all other times of the day Blood specimen (specimen) 01/06/2014 9:23 PM EDT 01/06/2014 9:23 PM EDT Kenia Bauman MD POINT OF CARE TEST O [place] Performing Organization Address [facility] de Phone Number [facility] * POCT Glucose (01/06/2014 6:42 PM EDT) Glucose, POC 125 60 - 199 mg/dL [facility] Comment: Supplemental ranges: <140 mg/dL before meals <180 mg/dL all other times of the day Blood specimen (specimen) 01/06/2014 6:42 PM EDT 01/06/2014 6:42 PM EDT Kenia Bauman MD POINT OF CARE TEST O [place] Performing Organization Address [facility] de Phone Number [facility] * Electrophysiology Procedure (01/06/2014 5:20 PM [...] Modality Other Narrative 01/09/2014 7:14 AM EDT ?[facility] ? Cardiac Catheterization/Intervention Report ? Patient Name: Pamela, Shahnaz ? Procedure Date: 01/06/2014 ? A #: [id number] ? Primary Physician: Jaron Jarquin ? Case #: [id number] ? File Name: [id number] ? Catheterization Order Number: [id number] ? [facility] ? Final Report [place], [place] ? Patient Name: ? Shahnaz Santiago ? ID#: ?[id number] ? : ?1950 ? Procedure Date: ? January 06, 2014 ? Case #: ? [id number] ? Room: ? 1 ? Case Physician: ? Jaron Jarquin MJosephD. ? Start: ?14:40 ?Fellow: ? Jennifer Nguyen Chiaco, ?Admission: ??01/06/2014 ?M.D. ? Referring Physician: ??Jennifer Haro M.D. ? Procedures: ?* Coronary Angiography ?* Left Heart Catheterization ?* Coronary Flow [place] Measurement ?* Coronary Instantaneous Wave-Free Ratio ?* [...] Jarquin M.D. ? Electronically Signed by: Jaron W. Reddell, M.D. ? Report Finalized: 01/06/2014 ??16:11 ? Procedure Note Jaron Jarquin II, MD - 01/09/2014 [facility] Cardiac Catheterization/Intervention Report Patient Name: Shahnaz Santiago Procedure Date: 01/06/2014 A #: [id number] Primary Physician: Jaron Jarquin Case #: File Name: [id number] Catheterization Order Number: [id number] [facility] FinalReport [place], [place] Patient Name: Shahnaz Santiago ID#:[id number] :1950 Procedure Date: January 06, 2014 Case #: Room: 1 Case Physician: Jaron Jarquin M.D. Start: 14:40 Fellow: Jennifer Argueta, Admission:01/06/2014 Adriana Referring Physician: Jennifer Haro M.D. Procedures: * Coronary Angiography * Left Heart Catheterization * Coronary Flow [place] Measurement * Coronary Instantaneous Wave-Free Ratio * [...] 12:40 PM EDT) Troponin-T 0.10(H) <=0.03 ng/mL MONICA PERALTA Comment: 0.03 ng/mL: Represents the 99th percentile upper reference limit for normals. >0.03 ng/mL: Elevated cardiac troponin T level indicative of myocardial damage. Diagnosis of acute, evolving or recent AK requires a typical rise and gradual fall [...] consensus document of the Joint Society of Cardiology/[place] College of Cardiology Committee for the redefinition of myocardial infarction. ??Journal of the [place] College of [employer]iology 2000; 36: 959-969] Creatine Kinase 127 0 - 200 unit/L MONICA PERALTA Blood specimen (specimen) 01/06/2014 12:40 PM EDT 01/06/2014 12:52 PM EDT Narrative Resulting Agency Comment Spec In Lab Kenia Bauman MD CHEMISTRY ORDERABLES MONICA PERALTA * POCT Glucose (01/06/2014 12:15 PM EDT) Glucose, POC 165 60 - 199 mg/dL MONICA PERALTA Comment: Supplemental ranges: <140 mg/dL before meals <180 mg/dL all other times of the day Blood specimen (specimen) 01/06/2014 12:15 PM EDT 01/06/2014 12:15 PM EDT Kenia Bauman MD POINT OF CARE TEST O RDERABLES Performing Organization Address [facility] Co de Phone Number MONICA PERALTA * Cardiac Enzymes (01/06/2014 11:30 AM EDT) Troponin-T Not Perf <=0.03 ng/mL [facility] Comment: Unable to quantitate due to sample hemolysis. ??Sample redraw suggested. Called Maximiliano, 01/06/14 12:30, blr 0.03 ng/mL: Represents the 99th percentile upper reference limit for normals. >0.03 ng/mL: Elevated cardiac troponin T level indicative of myocardial damage. Diagnosis of acute, evolving or recent AK requires a typical rise and gradual fall [...] consensus document of the Joint Society of Cardiology/[place] College of Cardiology Committee for the redefinition of myocardial infarction. ??Journal of the [place] College of Cardiology 2000; 36: 959-969] Creatine Kinase 132 0 - 200 unit/L MONICA PERALTA Blood specimen (specimen) 01/06/2014 11:30 AM EDT 01/06/2014 11:45 AM EDT Narrative Resulting Agency Comment Spec In Lab Kenia Bauman MD CHEMISTRY ORDERABLES Performing Organization Address [facility] Co de Phone [...] ORDERABLE S Performing Organization Address [facility] de Phone Number [facility] * LDL Cholesterol, Direct (01/06/2014 11:30 AM EDT) LDL Cholesterol, Direct 13 <=99 mg/dL [facility] Comment: The National Cholesterol Education Program (NCEP) has set the following guidelines for LDL Cholesterol: Reference range: ?? Optimal: ?<100 mg/dL ?? Near Optimal/Above Optimal: ?? 100-129 mg/dL ?? Borderline high: ?130-159 mg/dL ?? High: ? 160-189 mg/dL ?? Very high: ?>pt=574 mg/dL TATI 2001: 285(19):0363-5949 Blood specimen (specimen) 01/06/2014 11:30 AM EDT 01/06/2014 11:45 AM EDT Narrative Resulting Agency Comment Spec In Lab Kenia Bauman MD CHEMISTRY ORDERABLES Performing Organization Address [facility] de Phone Number [facility] * Echocardiogram Transthoracic(Leb) (01/06/2014 10:29 AM EDT) EF 56 HEARTLAB SYSTEM Anatomical Region Laterality Modality Other 01/06/2014 Narrative 01/06/2014 10:41 AM EDT Procedure: ? Transthoracic Echocardiogram Patient: ? PAMELA CHRISTIE P ? (Age): 1950(63) Med Rec#: ?[id number] ? Sex: ?M ? Site Loc: ?[place] ? Ht / Wt: ??185(cm)/92(kg) Pt. Loc: ? [facility] ?BSA: ?2.17 Study Date: ?01/06/2014 ? Pt. Type: Inpatient Tape: ? Referring: Kenia Bauman ([id number]) Referring: BRUCE Break Out Man: Jodie Givens Diagnosis:CPT Code(s): ??Echo Full (05426), ??Spectral Doppler (65312), Color Doppler (90302), Indication(s): ??Tachycardia Rhythm: HR ?BP ?114/63 ?? [...] ? Mid-Inferior ?Normal ? Mid-Inferoseptal ?Normal ? [place]-Septal ? Normal ? [place]-Anterior ? Normal ? [place]-Lateral ?Normal ? [place]-Inferior ? Normal ? [place]-Tip ?Normal ? Chambers ?Value ?Units (Range) ? [...] 01/06/2014 10:41:12 Images reviewed and interpretation verified [facility] Cardiac Ultrasound Laboratory Procedure Note Warren Atkinson MD - 01/06/2014 Procedure: Transthoracic Echocardiogram Patient: PAMELA Gordon (Age): 1950(63) Med Rec#: [id number] Sex: M Site Loc: [place] Ht / Wt: 185(cm)/92(kg) Pt. Loc: [facility] BSA: 2.17 Study Date: 01/06/2014 Pt. Type: Inpatient Tape: Referring: Kenia Bauman ([id number]) Referring: BRCUE Break Out Man: Jodie Givens Diagnosis:CPT Code(s): Echo Full (95609), Spectral Doppler (47637), Color Doppler (47003), Indication(s): Tachycardia Rhythm: HR BP 114/63 SUMMARY: [...] Normal Mid-Posterolateral Normal Mid-Inferior Normal Mid-Inferoseptal Normal [place]-Septal Normal [place]-Anterior Normal [place]-Lateral Normal [place]-Inferior Normal [place]-Tip Normal Chambers Value Units (Range) EF Bi-p [...] 01/06/2014 10:41:12 Images reviewed and interpretation verified [facility] Cardiac Ultrasound Laboratory Kenia Bauman MD ECHO ORDERABLES * EKG 12 Lead (01/06/2014 9:29 AM EDT) Ventricular rate 61 BPM MUSE SYSTEM Atrial Rate 61 BPM MUSE SYSTEM P-R Interval 210 ms MUSE SYSTEM QRS Duration 128 ms MUSE SYSTEM Q-T Interval 450 ms MUSE SYSTEM QTC Calculated (Bezet) 453 ms MUSE SYSTEM Calculated P Industry 36 degrees MUSE SYSTEM Calculated R Industry -51 degrees MUSE SYSTEM Calculated T Industry -62 degrees MUSE SYSTEM INTERPRETATION Sinus rhythm [...] * POCT Glucose (01/06/2014 8:28 AM EDT) Glucose, POC 104 60 - 199 mg/dL MONICA [email or web address] Comment: Supplemental ranges: <140 mg/dL before meals <180 mg/dL all other times of the day Blood specimen (specimen) 01/06/2014 8:28 AM EDT 01/06/2014 8:28 AM EDT Kenia Bauman MD POINT OF CARE TEST O RDERABLES Performing Organization Address City/[facility] Co de Phone Number [employer] * XR chest routine PA & lateral [...] Impression Left basilar subsegmental atelectasis. Procedure Note Micahel Zamora MD - 01/06/2014 Examination CHEST ROUTINE [...] 3:06 AM EDT) Creatinine, Urine 167 mg/dL MONICA BENITEZIUM Urine specimen (specimen) 01/06/2014 3:06 AM EDT 01/06/2014 3:15 AM EDT Narrative Resulting Agency Comment Spec In Lab Kenia Bauman MD URINE ORDERABLES Performing Organization Address City/[facility] Co de Phone Number MONICA [email or web address] * Sodium, urine, random (01/06/2014 3:06 AM EDT) Sodium, Urine 85 mmol/L MONICA BENITEZIUM Urine specimen (specimen) 01/06/2014 3:06 AM EDT 01/06/2014 3:15 AM EDT Narrative Resulting Agency Comment Spec In Lab Kenia Bauman MD URINE ORDERABLES MONICA Loved.laENNIUM * (ABNORMAL) Urinalysis with microscopic (01/06/2014 3:06 [...] Urine Dipstick Hazy(A) Clear CERNER MILLENNIUM Specific [place] Urine Automated 1.019 1.002 - 1.030 CERNER [...] damage. Diagnosis of acute, evolving or recent AK requires a typical rise and gradual fall [...] consensus document of the Joint Society of Cardiology/[place] College of Cardiology Committee for the redefinition of myocardial infarction. ??Journal of the [place] College of Cardiology 2000; 36: 959-969] Creatine [...] ORDERABLE S Performing Organization Address [facility]/ZIP Co de Phone Number [facility] * (ABNORMAL) Magnesium (01/06/2014 2:50 AM EDT) Magnesium 0.67(L) 0.69 - 1.07 mmol/L [facility] Blood specimen (specimen) 01/06/2014 2:50 AM EDT 01/06/2014 2:58 AM EDT Narrative Resulting Agency Comment Spec In Lab Kenia Bauman MD CHEMISTRY ORDERABLES Performing Organization Address [facility] de Phone Number [facility] * (ABNORMAL) Lipid panel (fasting) (01/06/2014 2:50 AM EDT) Cholesterol, Total 55 <=199 mg/dL [facility] Comment: Recommendations of the NCEP Adult Treatment Panel for the following risk cutoff thresholds for the [place] population: Desirable: <200 mg/dL Borderline High: 200-239 mg/dL High: > or = 240 mg/dL Triglyceride 148 <=149 mg/dL [facility] Comment: Reference Range: Normal triglycerides: ??<150 mg/dL Borderline high: ??150-199 mg/dL High: ??200-499 mg/dL Very high: ??>ld=995 mg/dL TATI 2001; 285(19):5661-7427 HDL Cholesterol 26(L) >=40 mg/dL [facility] Comment: Reference range: ??Low HDL: ?? < 40 mg/dL ??Normal: ?40-60 mg/dL ??Desirable: > 60 mg/dL TATI 2001; 285(19):5327-1126 LDL Cholesterol -1 <=99 mg/dL [facility] Comment: Reference range: ?? Optimal: ?<100 mg/dL ?? Near Optimal/Above Optimal: ?? 100-129 mg/dL ?? Borderline high: ?130-159 mg/dL ?? High: ? 160-189 mg/dL ?? Very high: ?>uy=104 mg/dL TATI 2001: 285(19):8571-3627 Cholesterol/HDL Ratio 2.1 ratio CERNER MILLENNIUM Comment: A Cholesterol to HDL ratio below 4:1 is desirable. ??Studies suggest that increased CAD risk occurs at ratios above 5 for females and above 6 for men. ? [place] Heart Association ??(http://www.americanheart.org) ? Yenny Int Med, 1994; 121:641 ? AM J Med, 1998; 105(1A):48S Blood specimen (specimen) 01/06/2014 2:50 AM EDT 01/06/2014 2:58 AM EDT Narrative Resulting Agency Comment Spec In Lab Kenia Bauman MD CHEMISTRY ORDERABLES [facility] * (ABNORMAL) Basic Metabolic Panel (non-fasting) (01/06/2014 2:50 AM EDT) [facility] Glucose 107 60 - 199 mg/dL CERNER MILLENNIUM Comment:Diabetes: >=200 mg/d L plus symptoms Blood Urea Nitrogen 31(H) 10 - 20 mg/dL CERNER MILLENNIUM [...] the following links into your internet browser. [email or web address] Blood specimen (specimen) 01/06/2014 2:50 AM EDT 01/06/2014 2:58 AM EDT Narrative Resulting Agency Comment Spec In Lab Kenia Bauman MD CHEMISTRY ORDERABLES Performing Organization Address City/[facility] Co de Phone Number MONICA PERALTA * EKG 12 Lead (01/06/2014 2:01 AM EDT) Ventricular rate 69 BPM MUSE SYSTEM Atrial Rate 69 BPM MUSE SYSTEM P-R Interval 212 ms MUSE SYSTEM QRS Duration 126 ms MUSE SYSTEM Q-T Interval 416 ms MUSE SYSTEM QTC Calculated (Bezet) 445 ms MUSE SYSTEM Calculated P Industry 18 degrees MUSE SYSTEM Calculated R Industry -55 degrees MUSE SYSTEM Calculated T Industry -70 degrees MUSE SYSTEM INTERPRETATION Sinus rhythm with 1st degree A-V block Left anterior fascicular block Non-specific intra-ventricula r conduction block T wave abnormality, consider inferior ischemia T wave abnormality, consider anterolateral ischemia Abnormal ECG Confirmed by MD Thomas Douglas ([id number]) on 01/07/2014 4:01:06 PM MUSE SYSTEM 01/06/2014 2:01 AM EDT 01/07/2014 4:01 PM EDT Unknown ECG ORDERABLES MUSE SYSTEM documented in this [...] (Intra-Procedure), Routine 1500 (Given - Provider: Yaron Don, NAHUN) lisinopril (PRINIVIL;ZESTRIL) tablet 20 mg 20 mg, [...] from all sources in 24 hours., Routine 043 (Given - Provider: Teresita Lozano RN) 1248 (Given - Provider: Loraine Saldivar RN - Comment: frontal headache pain) ALPRAZolam (XANAX) tablet 0.5 mg (CANCELED) 0.5 mg, Oral, 3 TIMES DAILY PRN, Starting on Thu01/07/14 at 1623, Until Thu01/11/14 at 1539, Anxiety, Routine 432 (Given - Provider: Teresita Lozano RN)2011 (Given - Provider: Yamile Raya RN) 2138 (Given - Provider: Yamile Raya RN) fentaNYL 50mcg/mL injection () 25-50 mcg, Intravenous, EVERY 5 MIN PRN, Starting on Thu01/10/14 at 1444, Until Thu01/11/14 at 0043, Pain, As needed to induce or maintain moderate sedation per [place] Moderate Sedation Protocol, Not to exceed 50 [...] to induce or maintain moderate sedation per [place] Moderate Sedation Protocol, Not to exceed 1 [...] RN) documented in this encounter Care Teams Lead Security Officer Relationship Specialty Start Date End Date Jennifer Haro MD PCP - General 9/19/12 10/13/14 documented as of this encounter
--- OUTSIDE RECORDS SUMMARY | 2024-04-19 15:32 | XMS_ITS | Encounter Summary ---
Author Organization [facility] Address [facility] [place] [address] Care Team Providers Care News Assignment Editor Name Role Phone Dewayne Mcdermott MD Primary Care Provider [phone] Reason for Visit * Reason Onset Date Comments Medication Refill 09/23/2013 Encounter Details Date Type Department Care Team (Late st Contact Info) Description 09/23/2013 Refill Cardiology at [address] [phone] Kit Self MD [facility] [place] [address] Medication Refill Social History Tobacco Use Types [...] AM EST Hospital Encounter Non[place] [phone] Arrived documented as of this encounter Visit Diagnoses Diagnosis ASCVD (arteriosclerotic cardiovascular disease)- Primary Unspecified cardiovascular disease documented in this encounter Care Teams News Assignment Editor Relationship Specialty Start Date End Date Dewayne Mcdermott MD PCP - General 01/07/12 01/30/14 documented as of this encounter
--- OUTSIDE RECORDS SUMMARY | 2024-04-19 15:32 | XMS_ITS | Encounter Summary ---
Author Organization [facility] [place] [address] Care Team Providers Care Meeting Manager Name Role Phone Dewayne Mcdermott MD Primary Care Provider [phone] Reason for Visit * Reason Comments Follow-up Encounter Details Date Type Department Care Team (Late st Contact Info) Description 06/17/2013 1:15 PM EST Office Visit Dermatology at [address] [place] [address] Adis Gonzalez MD [address] [place] [address], [place] [address] Dermatitis (Primary Dx) Social History Tobacco Use [...] is about to begin cardiac rehab at [facility], and I think this [...] AM EST Hospital Encounter Non-[place] [phone] Arrived documented as of this encounter Visit Diagnoses Diagnosis Dermatitis- Primary Contact dermatitis and other eczema, due to unspecified cause documented in this encounter Care Teams Meeting Manager Relationship Specialty Start Date End Date Dewayne Mcdermott MD PCP - General 01/07/12 01/30/14 documented as of this encounter
--- OUTSIDE RECORDS SUMMARY | 2024-04-19 15:32 | XMS_ITS | Encounter Summary ---
Author Organization [facility] Address [facility] [place] [address] Care Team Providers Care Data Abstractor Name Role Phone Jennifer Haro MD Primary Care Provider [phone] Reason for Visit * Reason Comments Follow-up S/P cath Encounter Details Date Type Department Care Team (Late st Contact Info) Description 06/14/2013 9:40 AM EST Follow-Up Cardiology at [address] [phone] Kit Self MD [facility] [place] [address] ASCVD (arteriosclerotic cardiovascular disease); Tobacco abuse Discharge [...] from the original note were not included. [facility] [place] [address] CARDIOLOGY OUTPATIENT FOLLOW-UP NOTE Marquez Hendrix [id number] PCP: JENNIFER HARO MD 06/14/2013 PRIMARY CARE PROVIDER: JENNIFER HARO MD PROBLEM LIST: Patient Active Problem List Diagnosis ??? ASCVD (arteriosclerotic cardiovascular disease) ?? Heart catheterization in [facility] in 2007 with placement of a stent in an unspecified vessel ?? Repeat heart catheterization in 2008 with placement of stents to both the LAD and circumflex ?? Followup heart catheterization in 2008 showing stable results in both vessels ?? Her current chest discomfort in a somewhat atypical pattern beginning fall ?? Nuclear stress test at [facility] in [place], [place] May 02, 2013 during which he developed left shoulder and arm discomfort during submaximal exercise on the treadmill and after which he was converted to a pharmacologic test; nuclear imaging showed ejection fraction of 45% with a partially reversible inferior defect ?? Cath [facility] 05/13/2013: normal left [...] mg by mouth 2 times daily. ??? [place]-3 Fatty Acids (FISH OIL) 500 mg Cap Take by mouth daily. ??? multivitamin capsule Take 1 capsule by mouth daily. ??? LANCETS MISC by Misc.(Non-Drug; Combo Route) route. ??? lamotrigine (LAMICTAL) 100 mg tablet Take 100 mg by mouth daily. ??? alprazolam (XANAX XR) 3 mg 24 hr tablet Take 3 mg by mouth every morning. ? ? lactobac cmb #[id number] (PROBIOTIC & ACIDOPHILUS) 300-250 million cell- mg [...] AM EST Hospital Encounter Non-[place] [address] Arrived documented as of this encounter Visit Diagnoses Diagnosis ASCVD (arteriosclerotic cardiovascular disease) Unspecified cardiovascular disease Tobacco abuse Tobacco use disorder documented in this encounter Care Teams Data Abstractor Relationship Specialty Start Date End Date Jennifer Haro MD PCP - General 01/07/12 01/30/14 documented as of this encounter
--- OUTSIDE RECORDS SUMMARY | 2024-04-19 15:32 | XMS_ITS | Encounter Summary ---
Author Organization [facility] Address [facility] [place] [address] Care Team Providers Care Configuration Management Manager Name Role Phone Dewayne Mcdermott MD Primary Care Provider [phone] Encounter Details Date Type Department Care Team (Late st Contact Info) Description 01/05/2014 Orders Only Cardiology at [address] [phone] Huseyin Espinoza MD [facility] [place] [address] Social History Tobacco Use Types Packs/Day Years [...] AM EST Hospital Encounter Non-[place] [phone] Arrived documented as of this encounter Procedures [...] is a Non-reportable exam Huseyin Espinoza MD [facility]RARY ORD ERABLES documented in this encounter Visit Diagnoses Not on filedocumented in this encounter Care Teams Configuration Management Manager Relationship Specialty Start Date End Date Dewayne Mcdermott MD PCP - General 01/07/12 01/30/14 documented as of this encounter
--- OUTSIDE RECORDS SUMMARY | 2024-04-19 15:32 | XMS_ITS | Encounter Summary ---
[facility] Organization [facility] [place] [address] Care Team Providers Care Floral Associate Name Role Phone Jennifer Haro MD Primary Care Provider [phone] Encounter Details Date Type Department Care Team (Late st Contact Info) Description 01/06/2014 1:30 PM EDT - 01/06/2014 2:30 PM EDT [place] [address] Jaron Jarquin II, MD CARDIAC CATHETERIZATION Social History Tobacco Use Types [...] a 91 day new device check at [facility]. 4. Transtelephonic device follow [...] 8:10 AM Kit Self MD Le Cardio [facility] Follow-Up Appointments Date and Time Provider and Specialty Location Jan 13, 2014 @ 2:[address] [facility] Doctor: Kenia Bauman MD Your Primary Care Provider: JENNIFER HARO MD [phone] For questions regarding this document or issues relating to this hospitalization on the Medical Service, please contact your inpatient physician through the [facility] Quotation Clerk . Issues afterhours and on weekends will [...] times daily. 90 tablet 6 05/14/2013 01/27/2017 [place]-3 Fatty Acids (FISH OIL) 500 mg Cap Take by mouth daily. 01/14/2016 lamotrigine (LAMICTAL) 100 mg tablet Take 200 mg by mouth daily. 09/01/2018 alprazolam (XANAX XR) 3 mg 24 hr tablet Take 3 mg by mouth nightly. 09/18/2020 [id number] (PROBIOTIC & ACIDOPHILUS) 300-250 million cell-mg Cap [...] answered at this time. Patient discharged to [facility] with Daughter in stable condition. Wheelchair offered; patient elected to walk. * Edy Torres PA - 01/11/2014 12:10 PM EDT Patient Name: Shahnaz Santiago Patient Age: 63 y.o. Birthdate: 1950 Admit date: 01/06/2014 Attending Physician: Kenia Bauman MD Cardiac Electrophysiology Post-Iimplant Device Interrogation Note Shahnaz Santiago is a 63 y.o. male is POD # 1 following implant of a dual chamber, [employer] ICD for sustained ventricular tachycardia. He [...] in situ V45.02 Device data: Ventricular electrode: [employer] Dunnegan Model# 0292 Serial# [id number] Bipolar, steroid-tipped, active-fixation, single coil DF-4 lead Access: Left axillary vein Location: RV apex R wave, ICD: 9.6 mV Pacing threshold, ICD: 0.6 V at 0.5 ms Impedance, ICD: 913 ohms (74 ohms for shock vector) Pace the diaphragm at 10 V: No Atrial electrode: [employer] Dextrus Model# 4136 Serial# [id number] Bipolar, steroid-tipped, active-fixation IS-1 lead Access: Left axillary vein Location Right atrial appendage P wave, ICD: 4.3 mV Pacing threshold, pacemaker: 1.7 V at 0.5 ms Impedance, pacemaker: 538 ohms Pace the diaphragm at 10 V: No Pulse generator: [employer] Incepta Model# E162 Serial# [id number] DDDR ICD Location: Subcutaneous Defibrillation testing was [...] ~ 91 days. Provider: MAXIMO Leija Provider#: [id number] Consult attending physician: Estefanía Cross MD * Raul Salmeron RN - 01/11/2014 8:04 AM EDT Inpatient Post ICD Implant Teaching Note Verbal teaching was performed today bdkw-ic-qtxy with the patient including the following: -Brief generalized teaching of how ICDs function, and the patient's specific indication for ICD implant -Activity restrictions post ICD implant -Remote monitoring of the ICD via telephone (patient was given [facility] Latitude communicator today). -ICD insertion [...] ICD placement today. Pt is insured with [email or web address] exchange. No discharge needs identified at this time. Will continue to follow for coordination of care and discharge planning. Nora Schaeffer TEXTILE BROKER [facility]/Stacy Pabon MSN BSN RN [facility] Office of Care Managment Pager [phone] * Yamile Raya RN - 01/10/2014 6:30 [...] One episode 7 beat run VT ~150bpm. [place] warm, needed to urinate during that time. [...] EDIE FLORES DO Cardiology S1 (pgr. [phone]) * Kenia [...] bivalirudin Stopped (01/06/14 1546) ??? adenosine Stopped (01/06/141544) PRN Meds:.potassium chloride, [...] in to convince him not to leave [facility] without an ICD. Will await his decision. [...] Jennifer Harris - 01/06/2014 4:24 PM EDT Health Information Systems Technician Encounter Note Patient Name: Shahnaz Santiago : [id number] MR#: [id number] Admit Date: 01/06/2014 1:50 AM Hospital Day 0 days Narrative: Shahnaz was happy and open to customer service attendant visit. Assessment: We had a long conversation of what he considered that has been militating against a health life-style: smoking. Moreover he was not a denominational person based on his experiences over the years yet accepts prayers. Intervention and Outcome: We prayed for God's healing & strength. Follow-up: Yes Time in Direct Care: 35 mins Jennifer Zimmer Steven 01/06/2014 * Stacy Pabon RN - 01/06/2014 2:17 PM EDT Office of Care Management Clinical Sound Designer Patient Name: Shahnaz Santiago : 1950, 63 yrs Admission Date: 01/06/2014 1:50 AM Attending: Kenia Bauman MD Order to Admit: Signed Record reviewed and patient discussed with multidisciplinary team. Lives in [place], [place] 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 He is independent and drives. Insurance: No Insurance. (Guillermo Aaron ENGLISH HORN PLAYER notified) [facility] Medical/Surgical:63 yo man with ASCVD s/p [...] Pabon MSN RN Clinical Resource Coordinators Phone: [phone] Pager [phone] documented in this encounter H&P Notes * Edy Berry MD - 01/07/2014 5:02 PM EDT Inpatient Cardiac Electrophysiology Follow-up Note Date of Consultation: 01/07/2014 Admit Date: 01/06/2014 Place of Service: Inpatient Unit Reason for Consult: We are seeing Shahnaz Santiago for the evaluation of ventricular tachycardia Patient Active Problem List Diagnosis ??? ASCVD (arteriosclerotic cardiovascular disease) Overview Note: ?? Heart catheterization in [facility] in 2008 with placement of a stent in an unspecified vessel ?? Repeat heart catheterization in 2008 with placement of stents to both the LAD and circumflex ?? Followup heart catheterization in 2008 showing stable results in both vessels ?? Her current chest discomfort in a somewhat atypical pattern beginning fall ?? Nuclear stress test at [facility] in [place], [place] May 02, 2013 during which he developed left shoulder and arm discomfort during submaximal exercise on the treadmill and after which he was converted to a pharmacologic test; nuclear imaging showed ejection fraction of 45% with a partially reversible inferior defect ?? Cath [facility] 05/13/2013: normal left main, mild diffuse disease [...] ASCVD (PCI to Cx, LAD; no hx PR) and tobacco use. 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 He has continued to go tocardiac rehab since then and had been doing well. On 01/04, he was walking in the [facility] when he developed sudden onset shortness of breath, which made him feel wobbly. He denied chest pain, palpitations (except for unusual pulsing in right ear lobe), or syncope though he felt weak and near-syncopal with exertion intermittently. His dyspnea remained present when he awoke the next morning, and he went to [facility], where ECG showed VT. He was cardioverted with return to NSR with 1st degree AVB, sub-mm STD in the lateral leads. His troponin was indeterminate. The patient was transferred to the [facility], where he has remained in NSR. [...] mg by mouth 2 times daily. ??? [place]-3 Fatty Acids (FISH OIL) 500 mg Cap Take by mouth daily. ??? multivitamin capsule Take 1 capsule by mouth daily. ??? LANCETS MISC by Misc.(Non-Drug; Combo Route) route. ??? lamotrigine (LAMICTAL) 100 mg tablet Take 100 mg by mouth daily. ??? alprazolam (XANAX XR) 3 mg 24 hr tablet Take 3 mg by mouth every morning. ? ? lactobac cmb #7-svr-eyxrgrbgru (PROBIOTIC & ACIDOPHILUS) 300-250 million cell- mg [...] of cardiac arrest, pt believes due to PR at age of 53. Heavy smoker. His mother had PVD. 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 Heart catheterization in [facility] in 2007 with placement of a stent in an unspecified vessel ?? Repeat heart catheterization in 2008 with placement of stents to both the LAD and circumflex ?? Followup heart catheterization in 2008 showing stable results in both vessels ?? Her current chest discomfort in a somewhat atypical pattern beginning fall ?? Nuclear stress test at [facility] in [place], [place] May 02, 2013 during which he developed left shoulder and arm discomfort during submaximal exercise on the treadmill and after which he was converted to a pharmacologic test; nuclear imaging showed ejection fraction of 45% with a partially reversible inferior defect ?? Cath [facility] 05/13/2013: normal left main, mild diffuse disease [...] ASCVD (PCI to Cx, LAD; no hx PR) and tobacco use. Andressa recently had a [...] the next morning, and he went to [facility], where ECG showed VT. He was cardioverted with return to NSR with 1st degree AVB, sub-mm STD in the lateral leads. His troponin was indeterminate. The patient was transferred to the [facility], where he has remained in NSR. [...] mg by mouth 2 times daily. ??? [place]-3 Fatty Acids (FISH OIL) 500 mg Cap Take by mouth daily. ??? multivitamin capsule Take 1 capsule by mouth daily. ??? LANCETS MISC by Misc.(Non-Drug; Combo Route) route. ??? lamotrigine (LAMICTAL) 100 mg tablet Take 100 mg by mouth daily. ??? alprazolam (XANAX XR) 3 mg 24 hr tablet Take 3 mg by mouth every morning. ? ? lactobac cmb #5-ydt-jloaelihhk (PROBIOTIC & ACIDOPHILUS) 300-250 million cell- mg [...] of cardiac arrest, pt believes due to PR at age of 53. Heavy smoker. His mother had PVD. 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 He should ideally check pulse for any recurrent symptoms of VT (e.g. Weakness, SOB) and not delay hospital presentation as he did this time. Will discuss more with him in AM. * Kenia Bauman MD - 01/06/2014 2:45 AM EDT Cardiology Admission History and Physical Patient Name: Shahnaz Santiago Service: [address] Responsible Attending: Kenia Bauman MD, PCP: JENNIFER HARO MD PCP phone #: [phone] ID/Chief Complaint: 63 yo man with ASCVD [...] a chronic, has beenaffecting him 20 years, ffnughaik-up-jijekulojd, sternally located discomfort that is constant and [...] change from his baseline he went to [facility] [place] [facility] ED for evaluation.There he was found to be tachycardic in the 160s, BP 108/64 and sating 96% on room air. An EKG revealed a monomorphic tachycardia. He was given versed 4mg, cardiovert with 120J biphasic. The patient's repeat EKG showed sinus rhythm with a 1st degree AV block FL of 214ms, as well as new T-wave inversions and sub 1mm ST depressions in V3-V6. His troponin was an indeterminate value 0.13 (0.06-0.59 =indeterminate). The patient was then transferred to [facility]. , OSH labs prior to transfer: 15.2 [...] (arteriosclerotic cardiovascular disease) ?? Heart catheterization in [facility] in 2007 with placement of a stent in an unspecified vessel ?? Repeat heart catheterization in 2008 with placement of stents to both the LAD and circumflex ?? Followup heart catheterization in 2008 showing stable results in both vessels ?? Her current chest discomfort in a somewhat atypical pattern beginning fall ?? Nuclear stress test at [facility] in [place], [place] May 02, 2013 during which he developed left shoulder and arm discomfort during submaximal exercise on the treadmill and after which he was converted to a pharmacologic test; nuclear imaging showed ejection fraction of 45% with a partially reversible inferior defect ?? Cath [facility] 05/13/2013: normal left main, mild diffuse disease [...] Cap Take by mouth daily. Generic drug: [place]-3 Fatty Acids Refills: 0 glipiZIDE 5 mg [...] by mouth daily. Generic drug: lactobac cmb #2-noy-trjvhdymbl Refills: 0 rosuvastatin 20 mg Tab Commonly [...] ischemia Kalyan Babb, PGY-2 Team Pager # [phone] Cardiology Attending Addendum I have interviewed and [...] 01/12/2014 11:50 AM EDTAssociated Order(s): SCAN DOC: TURN OPERATOR documented in this encounter Miscellaneous Notes * [...] a chronic, has beenaffecting him 20 years, obudarxyg-at-znrokdzico, sternally located discomfort that is constant and [...] change from his baseline he went to [facility] [place] [facility] ED for evaluation.There he was found to be tachycardic in the 160s, BP 108/64 and sating 96% on room air. An EKG revealed a monomorphic tachycardia. He was given versed 4mg, cardiovert with 120J biphasic. The patient's repeat EKG showed sinus rhythm with a 1st degree AV block FL of 214ms, as well as new T-wave inversions and sub 1mm ST depressions in V3-V6. His troponin was an indeterminate value 0.13 (0.06-0.59 =indeterminate). The patient was then transferred to [facility]. 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 A consult to smoking cessation was placed [...] (CL) of 1070 ms were as follows: FL: 230 ms HV: 40 ms (?) QRS: 110 ms (no manifest pre-excitation) QT: 450 ms 2) Atrial overdrive pacing (10 mA @ 2 ms) was accomplished from the low right atrium, and the atrioventricular (AV) Wenckebach block CL was observed at 500 ms. There was no pre-excitation or conduction aberrancy identified. The qehpwzgs-ek-GCD < QRS-QRS just prior to the observed [...] Cap Take by mouth daily. Generic drug: [place]-3 Fatty Acids Refills: 0 glipiZIDE 5 mg [...] by mouth daily. Generic drug: lactobac cmb #6-sdk-oxgfbhjorc Refills: 0 rosuvastatin 20 mg Tab Commonly [...] Center 02/07/2014 8:10 AM Kit Self MD Leb Cardio [facility] Follow-Up Appointments Date and Time Provider and Specialty Location Jan 13, 2014 @ 2:[address] [facility] Inpatient Doctor: Kenia Bauman MD Your Primary Care Provider: JENNIFER HARO MD [phone] For questions regarding this document or issues relating to this hospitalization on the Medical Service, please contact your inpatient physician through the [facility] Quotation Clerk . Issues afterhours and on weekends will be handled by the Hospitalist staff on-call. Future Appointments and Orders Future Appointments: Provider: Department: Dept Phone: Center: 02/07/2014 8:10 AM Kit Self MD Cardiology [phone] [facility] Joint Appt Nurse One Cardiology Intake, RN TOLU 4A [phone] [facility] 04/10/2014 9:30 AM Raul Salmeron RN Cardiology [phone] [facility] For questions regarding this document or issues relating to this hospitalization on the Medical Service, please contact your inpatient physician through the [facility] Quotation Clerk . Issues afterhours and on weekends will be handled by the District Fire Chief staff on-call. Signed: KENIA BAUMAN MD * [...] in the out pt CR program at [facility]. He was admitted with LLOYD and VT. Cardiac cath showed no ischemic etiology of sx. Being considered for ICD. Will refer him back to the [facility] prog at discharge * Miscellaneous - Provider, Scanning - 01/07/2014 2:41 PM EDT * Op Note - José Manuel Cole MD - 01/06/2014 5:34 PM EDT Electrophysiology Study Quotation Clerk: José Manuel Cole MD Indication: Ventricular tachycardia [...] (CL) of 1070 ms were as follows: FL: 230 ms HV: 40 ms (?) QRS: 110 ms (no manifest pre-excitation) QT: 450 ms 2) Atrial overdrive pacing (10 mA @ 2 ms) was accomplished from the low right atrium, and the atrioventricular (AV) Wenckebach block CL was observed at 500 ms. There was no pre-excitation or conduction aberrancy identified. The ffipvvrw-wz-FNU < QRS-QRS just prior to the observed [...] AM EST Hospital Encounter Non-[place] [address] Arrived documented as of this encounter Procedures Procedure Name Priority Date/Time Associated Diagnosis Comments TURN OPERATOR SCAN 01/12/2014 11:50 AM EDT POCT GLUCOSE Routine 01/11/2014 11:55 AM EDT XR CHEST PA AND LATERAL Routine 01/12/20 14 8:24 AM EDT POCT GLUCOSE Routine 01/11/2014 8:03 AM EDT HEMOGRAM Routine 01/11/2014 3:56 AM EDT DIFFERENTIAL, AUTOMATED Routine 01/12/20 3:56 AM EDT CBC (WITH DIFF) Routine [...] Routine 01/07/20 3:58 PM EDT CARDIAC ENZYMES ([facility]) Routine 01/06/2014 12:40 PM EDT POCT GLUCOSE Routine 01/06/2014 12:15 PM EDT CARDIAC ENZYMES ([facility]) Routine 01/06/2014 11:30 AM EDT APTT STAT [...] in this encounter Results * SCAN DOC: TURN OPERATOR (01/12/2014 11:50 AM EDT) Anatomical Region Laterality Modality Other Narrative 01/12/2014 11:53 AM EDT Procedure Note Provider, Scanning - 01/12/2014 11:50 AM EDT Scanning Provider MEDIA MGR SCAN EXT O RDR/RSLT * (ABNORMAL) POCT Glucose (01/11/2014 11:55 AM EDT) Glucose, POC 285(H) 60 - 199 mg/dL MONICA PERALTA Comment: Supplemental ranges: <140 mg/dL before meals <180 mg/dL all other times of the day Blood specimen (specimen) 01/11/2014 11:55 AM EDT 01/11/2014 11:55 AM EDT Kenia Bauman MD POINT OF CARE TEST O RDERABLES [facility] * XR chest routine PA [...] MD HEMATOLOGY ORDERABLE S Performing Organization Address City/[facility]/ZIP Co de Phone Number CERDELMAR ROSEENNIUM * (ABNORMAL) Hemogram (01/11/2014 3:56 AM EDT) [...] MD HEMATOLOGY ORDERABLE S MONICA ROSEENNIUM * Magnesium (01/11/2014 3:56 AM EDT) Magnesium 0.70 0.69 - 1.07 mmol/L CERNER MILLENNIUM Blood specimen (specimen) 01/11/2014 3:56 AM EDT 01/11/2014 4:21 AM EDT Narrative Resulting Agency Comment Spec In Lab Kenia Bauman MD CHEMISTRY ORDERABLES CERNER MILLENNIUM * Basic Metabolic Panel (non-fasting) (01/11/2014 3:56 AM EDT) Glucose 137 60 - 199 mg/dL CERNER MILLENNIUM Comment:Diabetes: >=200 mg/d L plus symptoms Blood Urea Nitrogen 18 10 - 20 mg/dL CERNER MILLENNIUM Creatinine 0.83 0.80 - 1.50 mg/dL CERNER MILLENNIUM Comment: Please note that the pediatric reference intervals supplied above were not validated at [facility]. Results from pediatric patients should be interpreted [...] the following links into your internet browser. [email or web address] Blood specimen (specimen) 01/11/2014 3:56 AM EDT 01/11/2014 4:21 AM EDT Narrative Resulting Agency Comment Spec In Lab Kenia Bauman MD CHEMISTRY ORDERABLES Performing Organization Address [facility] de Phone Number [facility] * POCT Glucose (01/11/2014 3:46 AM EDT) Glucose, POC 137 60 - 199 mg/dL [facility] Comment: Supplemental ranges: <140 mg/dL before meals <180 mg/dL all other times of the day Blood specimen (specimen) 01/11/2014 3:46 AM EDT 01/11/2014 3:46 AM EDT Kenia Bauman MD POINT OF CARE TEST O RDERABLES Performing Organization Address [facility] de Phone Number [facility] * POCT Glucose (01/10/2014 11:57 PM EDT) Glucose, POC 173 60 - 199 mg/dL [facility] Comment: Supplemental ranges: <140 mg/dL before meals <180 mg/dL all other times of the day Blood specimen (specimen) 01/10/2014 11:57 PM EDT 01/10/2014 11:57 PM EDT Kenia Bauman MD POINT OF CARE TEST O RDERABLES Performing Organization Address [facility] de Phone Number [facility] * (ABNORMAL) POCT Glucose (01/10/2014 8:31 PM EDT) Glucose, POC 201(H) 60 - 199 mg/dL [facility] Comment: Supplemental ranges: <140 mg/dL before meals <180 mg/dL all other times of the day Blood specimen (specimen) 01/10/2014 8:31 PM EDT 01/10/2014 8:31 PM EDT Kenia Bauman MD POINT OF CARE TEST O RDERABLES Performing Organization Address City/[facility] Co de Phone Number [facility] * POCT Glucose (01/10/2014 6:04 PM EDT) Glucose, POC 164 60 - 199 mg/dL [facility] Comment: Supplemental ranges: <140 mg/dL before meals <180 mg/dL all other times of the day Blood specimen (specimen) 01/10/2014 6:04 PM EDT 01/10/2014 6:04 PM EDT Kenia Bauman MD POINT OF CARE TEST O RDERABLES Performing Organization Address [facility] de Phone Number [facility] * Electrophysiology Procedure (01/10/2014 5:19 PM [...] with O-silk. Final Parameters: Ventricular electrode: ?? [employer] Dunnegan Model# 0292 Serial# [id number] ??Bipolar, steroid-tipped, active-fixation, ??single coil DF-4 lead ??Access: ? Left axillary vein ??Location: ?RV apex ??R wave, ICD: ? 9.6 mV ??Pacing threshold, ICD: ? 0.6 V at 0.5 ms ??Impedance, ICD: ? 913 ohms (74 ohms for shock vector) ??Pace the diaphragm at 10 V: ??No Atrial electrode: ?? Bit[employer] Dextrus Model# 4136 Serial# [id number] ??Bipolar, steroid-tipped, active-fixation IS-1 lead ??Access: ? Left axillary vein ??Location ? Right atrial appendage ??P wave, ICD: ? 4.3 mV ??Pacing threshold, pacemaker: ??1.7 V at 0.5 ms ??Impedance, pacemaker: ??538 ohms ??Pace the diaphragm at 10 V: ??No Pulse generator: ? [employer] Incepta Model# E162 Serial# [id number] DDDR ICD ??Location: ?Subcutaneous Defibrillation testing was [...] major muscle withO-silk. Final Parameters: Ventricular electrode: Bitly Dunnegan Model# 0292 Serial# [id number] Bipolar, steroid-tipped, active-fixation, single coil DF-4 lead Access: Left axillary vein Location: RV apex R wave, ICD: 9.6 mV Pacing threshold, ICD: 0.6 V at 0.5 ms Impedance, ICD: 913 ohms (74 ohms for shock vector) Pace the diaphragm at 10 V: No Atrial electrode: [employer] Dextrus Model# 4136 Serial# [id number] Bipolar, steroid-tipped, active-fixation IS-1 lead Access: Left axillary vein Location Right atrial appendage P wave, ICD: 4.3 mV Pacing threshold, pacemaker: 1.7 V at 0.5 ms Impedance, pacemaker: 538 ohms Pace the diaphragm at 10 V: No Pulse generator: [employer] Incepta Model# E162 Serial# [id number] DDDR ICD Location: Subcutaneous Defibrillation testing was [...] (ABNORMAL) POCT Glucose (01/10/2014 11:39 AM EDT) [facility] Glucose, POC 218(H) 60 - 199 mg/dL [facility] Comment: Supplemental ranges: <140 mg/dL before meals <180 mg/dL all other times of the day Blood specimen (specimen) 01/10/2014 11:39 AM EDT 01/10/2014 11:39 AM EDT Kenia Bauman MD POINT OF CARE TEST O RDERABLES [facility] * (ABNORMAL) POCT Glucose (01/10/2014 7:36 AM EDT) Glucose, POC 242(H) 60 - 199 mg/dL CERDELMAR ROSEENNIUM Comment: Supplemental ranges: <140 mg/dL before meals <180 mg/dL all other times of the day Blood specimen (specimen) 01/10/2014 7:36 AM EDT 01/10/2014 7:36 AM EDT Kenia Bauman MD POINT OF CARE TEST O RDERABLES Performing Organization Address City/[facility]/ZIP Co de Phone Number MONICA BENITEZIUM * POCT Glucose (01/10/2014 4:25 AM EDT) Glucose, POC 153 60 - 199 mg/dL [facility] Comment: Supplemental ranges: <140 mg/dL before meals <180 mg/dL all other times of the day Blood specimen (specimen) 01/10/2014 4:25 AM EDT 01/10/2014 4:25 AM EDT Kenia Bauman MD POINT OF CARE TEST O RDERABLES Performing Organization Address City/[facility]/ZIP Co de Phone Number MONICA BENITEZIUM * (ABNORMAL) Differential, Automated (01/10/2014 4:21 AM EDT) Neutrophil % 45.9 34.0 - 71.0 % [facility] Neutrophil Absolute 4.06 1.50 - 6.30 x10(3)/mc [...] Bauman MD CHEMISTRY ORDERABLES Performing Organization Address [facility] Co de Phone Number CERNER MILLENNIUM * Basic Metabolic Panel (non-fasting) (01/10/2014 4:21 AM EDT) Glucose 161 60 - 199 mg/dL CERNER MILLENNIUM Comment:Diabetes: >=200 mg/d L plus symptoms Blood Urea Nitrogen 17 10 - 20 mg/dL CERNER MILLENNIUM Creatinine 0.91 0.80 - 1.50 mg/dL CERNER MILLENNIUM Comment: Please note that the pediatric reference intervals supplied above were not validated at [facility]. Results from pediatric patients should be interpreted [...] MILLENNIUM Est Glomerular Filtration Rate >60 >=60 [facility] Comment: This estimated GFR (eGFR) value was [...] the following links into your internet browser. [email or web address] Blood specimen (specimen) 01/10/2014 4:21 AM EDT 01/10/2014 4:36 AM EDT Narrative Resulting Agency Comment Spec In Lab Kenia Bauman MD CHEMISTRY ORDERABLES Performing Organization Address [facility] Phone Number [facility] * POCT Glucose (01/09/2014 11:25 PM EDT) Glucose, POC 164 60 - 199 mg/dL [facility] Comment: Supplemental ranges: <140 mg/dL before meals <180 mg/dL all other times of the day Blood specimen (specimen) 01/09/2014 11:25 PM EDT 01/09/2014 11:25 PM EDT Kenia Bauman MD POINT OF CARE TEST O RDERABLES Performing Organization Address [facility] Phone Number [facility] * (ABNORMAL) POCT Glucose (01/09/2014 8:03 PM EDT) Glucose, POC 204(H) 60 - 199 mg/dL [facility] Comment: Supplemental ranges: <140 mg/dL before meals <180 mg/dL all other times of the day Blood specimen (specimen) 01/09/2014 8:03 PM EDT 01/09/2014 8:03 PM EDT Kenia Bauman MD POINT OF CARE TEST O RDERABLES Performing Organization Address [facility]/ZIP Co de Phone Number [facility] * (ABNORMAL) POCT Glucose (01/09/2014 4:34 PM EDT) Glucose, POC 231(H) 60 - 199 mg/dL [facility] Comment: Supplemental ranges: <140 mg/dL before meals <180 mg/dL all other times of the day Blood specimen (specimen) 01/09/2014 4:34 PM EDT 01/09/2014 4:34 PM EDT Kenia Bauman MD POINT OF CARE TEST O RDERALOREE Performing Organization Address [facility] de Phone Number [facility] * (ABNORMAL) POCT Glucose (01/09/2014 11:44 AM EDT) Glucose, POC 280(H) 60 - 199 mg/dL [facility] Comment: Supplemental ranges: <140 mg/dL before meals <180 mg/dL all other times of the day Blood specimen (specimen) 01/09/2014 11:44 AM EDT 01/09/2014 11:44 AM EDT Kenia aBuman MD POINT OF CARE TEST O RDERALOREE Performing Organization Address [facility] de Phone Number [facility] * POCT Glucose (01/09/2014 7:51 AM EDT) Glucose, POC 148 60 - 199 mg/dL [facility] Comment: Supplemental ranges: <140 mg/dL before meals <180 mg/dL all other times of the day Blood specimen (specimen) 01/09/2014 7:51 AM EDT 01/09/2014 7:51 AM EDT Kenia Bauman MD POINT OF CARE TEST O RDERABLES Performing Organization Address [facility] de Phone Number [facility] * Basic Metabolic Panel (non-fasting) (01/09/2014 4:32 AM EDT) Glucose 124 60 - 199 mg/dL CERNER MILLENNIUM Comment:Diabetes: >=200 mg/d L plus symptoms Blood Urea Nitrogen 15 10 - 20 mg/dL CERNER MILLENNIUM Creatinine 0.87 0.80 - 1.50 mg/dL CERNER MILLENNIUM Comment: Please note that the pediatric reference intervals supplied above were not validated at [facility]. Results from pediatric patients should be interpreted [...] the following links into your internet browser. [email or web address] [email or web address] Blood specimen (specimen) 01/09/2014 4:32 AM EDT 01/09/2014 4:38 AM EDT Narrative Resulting Agency Comment Spec In Lab Kenia Bauman MD CHEMISTRY ORDERABLES [facility] M[facility] * (ABNORMAL) Differential, Automated (01/09/2014 4:32 [...] Cell 4.83 4.63 - 6.08 x10(6)/mc L CERNER MILLENNIUM Hemoglobin 14.5 13.7 - 17.5 gm/dL CERNER MILLENNIUM Comment:Repeated & verified Hematocrit 43.0 40.0 - 51.0 % [facility] Mean Cell Volume 89.0 79.0 - 92.0 fL [facility] Mean Cell Hemoglobin 30.0 25.6 - 32.2 pg [facility] Mean Cell Hemoglobin Concentration 33.7 32.0 - 36.5 gm/dL [facility] Platelet 184 145 - 370 x10(3)/mc L [facility] RDW Standard Deviation 47.4(H) 35.0 - 46.0 fL [facility] RDW coefficient of variation 14.8(H) 10.9 - 14.4 % [facility] Mean Platelet Volume 10.3 9.0 - 12.0 fL [facility] Blood specimen (specimen) 01/09/2014 4:32 AM EDT 01/09/2014 4:38 AM EDT Narrative Resulting Agency Comment Spec In Lab Kenia Bauman MD HEMATOLOGY ORDERABLE S [facility] * Magnesium (01/09/2014 4:32 AM EDT) Magnesium 0.76 0.69 - 1.07 mmol/L [facility] Blood specimen (specimen) 01/09/2014 4:32 AM EDT 01/09/2014 4:38 AM EDT Narrative Resulting Agency Comment Spec In Lab Kenia Bauman MD CHEMISTRY ORDERABLES [facility] * POCT Glucose (01/09/2014 4:19 AM EDT) Glucose, POC 114 60 - 199 mg/dL [facility] Comment: Supplemental ranges: <140 mg/dL before meals <180 mg/dL all other times of the day Blood specimen (specimen) 01/09/2014 4:19 AM EDT 01/09/2014 4:19 AM EDT Kenia Bauman MD POINT OF CARE TEST O RDERABLES Performing Organization Address [facility]/ZIP Co de Phone Number [facility] * POCT Glucose (01/09/2014 1:41 AM EDT) Glucose, POC 155 60 - 199 mg/dL [facility] Comment: Supplemental ranges: <140 mg/dL before meals <180 mg/dL all other times of the day Blood specimen (specimen) 01/09/2014 1:41 AM EDT 01/09/2014 1:41 AM EDT Kenia Bauman MD POINT OF CARE TEST O RDERABLES Performing Organization Address [facility] de Phone Number [facility] * (ABNORMAL) POCT Glucose (01/08/2014 11:19 PM EDT) Glucose, POC 252(H) 60 - 199 mg/dL [facility] Comment: Supplemental ranges: <140 mg/dL before meals <180 mg/dL all other times of the day Blood specimen (specimen) 01/08/2014 11:19 PM EDT 01/08/2014 11:19 PM EDT Kenia Bauman MD POINT OF CARE TEST O RDERABLES Performing Organization Address [facility] de Phone Number [facility] * (ABNORMAL) POCT Glucose (01/08/2014 7:50 PM EDT) Glucose, POC 205(H) 60 - 199 mg/dL [facility] Comment: Supplemental ranges: <140 mg/dL before meals <180 mg/dL all other times of the day Blood specimen (specimen) 01/08/2014 7:50 PM EDT 01/08/2014 7:50 PM EDT Kenia Bauman MD POINT OF CARE TEST O RDERABLES Performing Organization Address [facility] Co de Phone Number [facility] * POCT Glucose (01/08/2014 5:17 PM EDT) Glucose, POC 194 60 - 199 mg/dL [facility] Comment: Supplemental ranges: <140 mg/dL before meals <180 mg/dL all other times of the day Blood specimen (specimen) 01/08/2014 5:17 PM EDT 01/08/2014 5:17 PM EDT Kenia Bauman MD POINT OF CARE TEST O RDERABLES Performing Organization Address [facility] Co de Phone Number [facility] * (ABNORMAL) POCT Glucose (01/08/2014 2:21 PM EDT) Glucose, POC 230(H) 60 - 199 mg/dL [facility] Comment: Supplemental ranges: <140 mg/dL before meals <180 mg/dL all other times of the day Blood specimen (specimen) 01/08/2014 2:21 PM EDT 01/08/2014 2:21 PM EDT Kenia Bauman MD POINT OF CARE TEST O SAMPSON Performing Organization Address [facility] Co de Phone Number [facility] * (ABNORMAL) POCT Glucose (01/08/2014 12:04 PM EDT) Glucose, POC 240(H) 60 - 199 mg/dL [facility] Comment: Supplemental ranges: <140 mg/dL before meals <180 mg/dL all other times of the day Blood specimen (specimen) 01/08/2014 12:04 PM EDT 01/08/2014 12:04 PM EDT Kenia Bauman MD POINT OF CARE TEST O RDERALOREE Performing Organization Address [facility] Co de Phone Number [facility] * POCT Glucose (01/08/2014 7:56 AM EDT) Glucose, POC 125 60 - 199 mg/dL [facility] Comment: Supplemental ranges: <140 mg/dL before meals <180 mg/dL all other times of the day Blood specimen (specimen) 01/08/2014 7:56 AM EDT 01/08/2014 7:56 AM EDT Kenia Bauman MD POINT OF CARE TEST O RDERABLES [facility] * (ABNORMAL) Magnesium (01/08/2014 7:03 AM EDT) Magnesium 0.58(L) 0.69 - 1.07 mmol/L CERNER MILLENNIUM Blood specimen (specimen) 01/08/2014 7:03 AM EDT 01/08/2014 7:09 AM EDT Narrative Resulting Agency Comment Spec In Lab Kenia Bauman MD CHEMISTRY ORDERABLES Performing Organization Address City/[facility] Co de Phone Number CERNER MILLENNIUM [...] MD HEMATOLOGY ORDERABLE S Performing Organization Address [facility]/ZIP Co de Phone Number MONICA ROSEENNIUM * [...] MD HEMATOLOGY ORDERABLE S Performing Organization Address City/[facility]/ZIP Co de Phone Number MONICA ROSEENNIUM * (ABNORMAL) Basic Metabolic Panel (non-fasting) (01/08/2014 7:03 AM EDT) [facility] Glucose 133 60 - 199 mg/dL CERNER MILLENNIUM Comment:Diabetes: >=200 mg/d L plus symptoms Blood Urea Nitrogen 16 10 - 20 mg/dL CERNER MILLENNIUM Creatinine 0.74(L) 0.80 - 1.50 mg/dL CERNER MILLENNIUM Comment: Please note that the pediatric reference intervals supplied above were not validated at [facility]. Results from pediatric patients should be interpreted [...] the following links into your internet browser. [email or web address] Blood specimen (specimen) 01/08/2014 7:03 AM EDT 01/08/2014 7:08 AM EDT Narrative Resulting Agency Comment Spec In Lab Kenia Bauman MD CHEMISTRY ORDERABLES CERNER MILLENNIUM * (ABNORMAL) POCT Glucose (01/08/2014 3:55 AM EDT) Glucose, POC 219(H) 60 - 199 mg/dL [facility] Comment: Supplemental ranges: <140 mg/dL before meals <180 mg/dL all other times of the day Blood specimen (specimen) 01/08/2014 3:55 AM EDT 01/08/2014 3:55 AM EDT Kenia Bauman MD POINT OF CARE TEST O RDERALOREE Performing Organization Address [facility] de Phone Number [facility] * POCT Glucose (01/07/2014 11:51 PM EDT) Glucose, POC 153 60 - 199 mg/dL [facility] Comment: Supplemental ranges: <140 mg/dL before meals <180 mg/dL all other times of the day Blood specimen (specimen) 01/07/2014 11:51 PM EDT 01/07/2014 11:51 PM EDT Kenia Bauman MD POINT OF CARE TEST O SAMPSON Performing Organization Address [facility] de Phone Number [facility] * POCT Glucose (01/07/2014 9:32 PM EDT) Glucose, POC 190 60 - 199 mg/dL [facility] Comment: Supplemental ranges: <140 mg/dL before meals <180 mg/dL all other times of the day Blood specimen (specimen) 01/07/2014 9:32 PM EDT 01/07/2014 9:32 PM EDT Kenia Bauman MD POINT OF CARE TEST O RDERABLES Performing Organization Address [facility] de Phone Number [facility] * (ABNORMAL) POCT Glucose (01/07/2014 7:36 PM EDT) Glucose, POC 223(H) 60 - 199 mg/dL [facility] Comment: Supplemental ranges: <140 mg/dL before meals <180 mg/dL all other times of the day Blood specimen (specimen) 01/07/2014 7:36 PM EDT 01/07/2014 7:36 PM EDT Kenia Bauman MD POINT OF CARE TEST O RDERALOREE Performing Organization Address [facility] de Phone Number [facility] * POCT Glucose (01/07/2014 5:32 PM EDT) Glucose, POC 180 60 - 199 mg/dL [facility] Comment: Supplemental ranges: <140 mg/dL before meals <180 mg/dL all other times of the day Blood specimen (specimen) 01/07/2014 5:32 PM EDT 01/07/2014 5:32 PM EDT Kenia Bauman MD POINT OF CARE TEST O CARLOSERALOREE Performing Organization Address [facility] Phone Number [facility] * (ABNORMAL) POCT Glucose (01/07/2014 1:24 PM EDT) Glucose, POC 240(H) 60 - 199 mg/dL [facility] Comment: Supplemental ranges: <140 mg/dL before meals <180 mg/dL all other times of the day Blood specimen (specimen) 01/07/2014 1:24 PM EDT 01/07/2014 1:24 PM EDT Kenia Bauman MD POINT OF CARE TEST O RDERALOREE Performing Organization Address [facility] Phone Number [facility] * (ABNORMAL) Magnesium (01/07/2014 10:00 AM EDT) Magnesium 0.66(L) 0.69 - 1.07 mmol/L [facility] Blood specimen (specimen) 01/07/2014 10:00 AM EDT 01/07/2014 10:17 AM EDT Narrative Resulting Agency Comment Spec In Lab Kenia Bauman MD CHEMISTRY ORDERABLES Performing Organization Address [facility] de Phone Number [facility] * Potassium (01/07/2014 10:00 AM EDT) Pathologist [facility] Potassium 4.3 3.5 - 5.0 mmol/L [facility] Comment: Please note: ??Patients with WBC [...] Bauman MD CHEMISTRY ORDERABLES Performing Organization Address [facility] de Phone Number MONICA PERALTA * POCT Glucose (01/07/2014 9:23 AM EDT) Pathologist [facility] Glucose, POC 178 60 - 199 mg/dL [facility] Comment: Supplemental ranges: <140 mg/dL before meals <180 mg/dL all other times of the day Blood specimen (specimen) 01/07/2014 9:23 AM EDT 01/07/2014 9:23 AM EDT Kenia Bauman MD POINT OF CARE TEST O RDERABLES Performing Organization Address [facility] de Phone Number [facility]ITAL[facility]LMAR ROSESOUTHEASTERN [facility] SERVICESGENE * Differential, Automated (01/07/2014 3:40 AM EDT) Neutrophil % 60.4 34.0 - 71.0 % [facility] Neutrophil Absolute 5.37 1.50 - 6.30 x10(3)/mcL [...] MD HEMATOLOGY ORDERABLE S Performing Organization Address [facility] Co de Phone Number CERNER MILLENNIUM * (ABNORMAL) Magnesium (01/07/2014 3:40 AM EDT) Magnesium 0.61(L) 0.69 - 1.07 mmol/L CERNER MILLENNIUM Blood specimen (specimen) 01/07/2014 3:40 AM EDT 01/07/2014 3:43 AM EDT Narrative Resulting Agency Comment Spec In Lab Kenia Bauman MD CHEMISTRY ORDERABLES Performing Organization Address [facility] de Phone Number CERNER MILLENNIUM * (ABNORMAL) Basic Metabolic Panel (non-fasting) (01/07/2014 3:40 AM EDT) Pathologist [facility] Glucose 93 60 - 199 mg/dL CERNER MILLENNIUM Comment:Diabetes: >=200 mg/d L plus symptoms Blood Urea Nitrogen 20 10 - 20 mg/dL CERNER MILLENNIUM Creatinine 0.81 0.80 - 1.50 mg/dL CERNER MILLENNIUM Comment: Please note that the pediatric reference intervals supplied above were not validated at [facility]. Results from pediatric patients should be interpreted [...] the following links into your internet browser. [email or web address] Blood specimen (specimen) 01/07/2014 3:40 AM EDT 01/07/2014 3:43 AM EDT Narrative Resulting Agency Comment Spec In Lab Kenia Bauman MD CHEMISTRY ORDERABLES Performing Organization Address [facility] Co de Phone Number [facility] * POCT Glucose (01/07/2014 3:39 AM EDT) Glucose, POC 95 60 - 199 mg/dL [facility] Comment: Supplemental ranges: <140 mg/dL before meals <180 mg/dL all other times of the day Blood specimen (specimen) 01/07/2014 3:39 AM EDT 01/07/2014 3:39 AM EDT Kenia Bauman MD POINT OF CARE TEST O RDERABLES Performing Organization Address [facility] Co de Phone Number [facility] * POCT Glucose (01/06/2014 11:40 PM EDT) Glucose, POC 130 60 - 199 mg/dL [facility] Comment: Supplemental ranges: <140 mg/dL before meals <180 mg/dL all other times of the day Blood specimen (specimen) 01/06/2014 11:40 PM EDT 01/06/2014 11:40 PM EDT Kenia Bauman MD POINT OF CARE TEST O RDERABLES Performing Organization Address [facility] Phone Number [facility] * POCT Glucose (01/06/2014 9:23 PM EDT) Glucose, POC 173 60 - 199 mg/dL [facility] Comment: Supplemental ranges: <140 mg/dL before meals <180 mg/dL all other times of the day Blood specimen (specimen) 01/06/2014 9:23 PM EDT 01/06/2014 9:23 PM EDT Kenia Bauman MD POINT OF CARE TEST O RDERABLES Performing Organization Address [facility] Phone Number [facility] * POCT Glucose (01/06/2014 6:42 PM EDT) Glucose, POC 125 60 - 199 mg/dL [facility] Comment: Supplemental ranges: <140 mg/dL before meals <180 mg/dL all other times of the day Blood specimen (specimen) 01/06/2014 6:42 PM EDT 01/06/2014 6:42 PM EDT Kenia Bauman MD POINT OF CARE TEST O SAM[place]ON Performing Organization Address [facility] Phone Number [facility] * Electrophysiology Procedure (01/06/2014 5:20 PM [...] Modality Other Narrative 01/09/2014 7:14 AM EDT ?[facility] ? Cardiac Catheterization/Intervention Report ? Patient Name: Shahnaz Santiago ? Procedure Date: 01/06/2014 ? A #: [id number] ? Primary Physician: Jaron Jarquin ? Case #: [id number] ? File Name: [id number] ? Catheterization Order Number: [id number] ? [facility] ? Final Report [place], [place] ? Patient Name: ? Shahnaz Santiago ? ID#: ?[id number] ? : ?1950 ? Procedure Date: ? January 06, 2014 ? Case #: ? [id number] ? Room: ? 1 ? Case Physician: ? Jaron Jarquin M.D. ? Start: ?14:40 ?Fellow: ? Jennifer Argueta, ?Admission: ??01/06/2014 ?M.D. ? Referring Physician: ??Jennifer Haro M.D. ? Procedures: ?* Coronary Angiography ?* Left Heart Catheterization ?* Coronary Flow Lamar Measurement ?* Coronary Instantaneous Wave-Free Ratio ?* [...] Note Jaron Jarquin II, MD - 01/09/2014 [facility] Cardiac Catheterization/Intervention Report Patient Name: Shahnaz Santiago Procedure Date: 01/06/2014 A #: [id number] Primary Physician: Jaron Jarquin Case #: File Name: [id number] Catheterization Order Number: [id number] [facility] FinalReport [place], [place] Patient Name: Shahnaz Santiago ID#:[id number] :1950 Procedure Date: January 06, 2014 Case #: Room: 1 Case Physician: Jaron Jarquin M.D. Start: 14:40 Fellow: Jennifer Argueta, Admission:01/06/2014 [place]ana Referring Physician: Jennifer Haro M.D. Procedures: * Coronary Angiography * Left Heart Catheterization * Coronary Flow Lamar Measurement * Coronary Instantaneous Wave-Free Ratio * [...] PM EDT) Troponin-T 0.10(H) <=0.03 ng/mL [facility] Comment: 0.03 ng/mL: Represents the 99th percentile upper reference limit for normals. >0.03 ng/mL: Elevated cardiac troponin T level indicative of myocardial damage. Diagnosis of acute, evolving or recent PR requires a typical rise and gradual fall [...] consensus document of the Joint Society of Cardiology/[place] [employer] Committee for the redefinition of myocardial infarction. ??Journal of the [place] College of [employer]iology 2000; 36: 959-969] Creatine Kinase 127 0 - 200 unit/L [facility] Blood specimen (specimen) 01/06/2014 12:40 PM EDT 01/06/2014 12:52 PM EDT Narrative Resulting Agency Comment Spec In Lab Kenia Bauman MD CHEMISTRY ORDERABLES Performing Organization Address [facility] Co de Phone Number [facility] * POCT Glucose (01/06/2014 12:15 PM EDT) Pathologist [facility] Glucose, POC 165 60 - 199 mg/dL [facility] Comment: Supplemental ranges: <140 mg/dL before meals <180 mg/dL all other times of the day Blood specimen (specimen) 01/06/2014 12:15 PM EDT 01/06/2014 12:15 PM EDT Kenia Bauman MD POINT OF CARE TEST O RDERABLES MONICA PERALTA * Cardiac Enzymes (01/06/2014 11:30 AM EDT) Troponin-T Not Perf <=0.03 ng/mL MONICA PERALTA Comment: Unable to quantitate due to sample hemolysis. ??Sample redraw suggested. Segundo Viera, 01/06/14 12:30, blr 0.03 ng/mL: Represents the 99th percentile upper reference limit for normals. >0.03 ng/mL: Elevated cardiac troponin T level indicative of myocardial damage. Diagnosis of acute, evolving or recent PR requires a typical rise and gradual fall [...] consensus document of the Joint Society of Cardiology/[place] [employer] Committee for the redefinition of myocardial infarction. ??Journal of the [place] [employer]iology 2000; 36: 959-969] Creatine Kinase 132 0 - 200 unit/L MONICA PERALTA Blood specimen (specimen) 01/06/2014 11:30 AM EDT 01/06/2014 11:45 AM EDT Narrative Resulting Agency Comment Spec In Lab Kenia Bauman MD CHEMISTRY ORDERABLES Performing Organization Address [facility] Co de Phone Number MONICA KATHRYN * (ABNORMAL) APTT (01/06/2014 11:30 AM EDT) Partial Thromboplastin Time 48(H) 25 - 35 sec MONICA PERALTA Comment: Recommended therapeutic PTT range for full dose unfractionated heparin is 80-114 seconds. Blood specimen (specimen) 01/06/2014 11:30 AM EDT 01/06/2014 11:45 AM EDT Narrative Resulting Agency Comment Spec In Lab Kenia Bauman MD HEMATOLOGY ORDERABLE S Performing Organization Address [facility] de Phone Number [facility] * LDL Cholesterol, Direct (01/06/2014 11:30 AM EDT) LDL Cholesterol, Direct 13 <=99 mg/dL [facility] Comment: The National Cholesterol Education Program (NCEP) has set the following guidelines for LDL Cholesterol: Reference range: ?? Optimal: ?<100 mg/dL ?? Near Optimal/Above Optimal: ?? 100-129 mg/dL ?? Borderline high: ?130-159 mg/dL ?? High: ? 160-189 mg/dL ?? Very high: ?>hc=150 mg/dL TATI 2001: 285(19):6293-0624 Blood specimen (specimen) 01/06/2014 11:30 AM EDT 01/06/2014 11:45 AM EDT Narrative Resulting Agency Comment Spec In Lab Kenia Bauman MD CHEMISTRY ORDERABLES Performing Organization Address [facility] de Phone Number [facility] * Echocardiogram Transthoracic(Leb) (01/06/2014 10:29 AM EDT) EF 56 HEARTLAB SYSTEM Anatomical Region Laterality Modality Other 01/06/2014 Narrative 01/06/2014 10:41 AM EDT Procedure: ? Transthoracic Echocardiogram Patient: ? PAMELA Gordon ? (Age): 1950(63) Med Rec#: ?[id number] ? Sex: ?M ? Site Loc: [facility] ? Ht / Wt: ??185(cm)/92(kg) Pt. Loc: ? CCU ?BSA: ?2.17 Study Date: ?01/06/2014 ? Pt. Type: Inpatient Tape: ? Referring: Kenia Bauman ([id number]) Referring: BRUCE Able Bodied Tankerman: Jodie Givens Diagnosis:CPT Code(s): ??Echo Full (30355), ??Spectral Doppler (76906), Color Doppler (25762), Indication(s): ??Tachycardia Rhythm: HR ?BP ?114/63 ?? [...] ? Mid-Inferior ?Normal ? Mid-Inferoseptal ?Normal ? [place]-Septal ? Normal ? [place]-Anterior ? Normal ? [place]-Lateral ?Normal ? [place]-Inferior ? Normal ? [place]-Tip ?Normal ? Chambers ?Value ?Units (Range) ? [...] 01/06/2014 10:41:12 Images reviewed and interpretation verified [facility] Procedure Note Warren Atkinson MD - 01/06/2014 Procedure: Transthoracic Echocardiogram Patient: PAMELA Gordon (Age): 1950(63) Med Rec#: [id number] Sex: M Site Loc: [facility] Ht / Wt: 185(cm)/92(kg) Pt. Loc: CCU BSA: 2.17 Study Date: 01/06/2014 Pt. Type: Inpatient Tape: Referring: Kenia Bauman ([id number]) Referring: BRUCE Able Bodied Tankerman: Jodie Givens Diagnosis:CPT Code(s): Echo Full (33198), Spectral Doppler (58933), Color Doppler (58406), Indication(s): Tachycardia Rhythm: HR BP 114/63 SUMMARY: [...] Normal Mid-Posterolateral Normal Mid-Inferior Normal Mid-Inferoseptal Normal [place]-Septal Normal [place]-Anterior Normal [place]-Lateral Normal [place]-Inferior Normal [place]-Tip Normal Chambers Value Units (Range) EF Bi-p [...] 01/06/2014 10:41:12 Images reviewed and interpretation verified [facility] Kenia Bauman MD ECHO ORDERABLES * EKG 12 Lead (01/06/2014 9:29 AM EDT) Ventricular rate 61 BPM MUSE SYSTEM Atrial Rate 61 BPM MUSE SYSTEM P-R Interval 210 ms MUSE SYSTEM QRS Duration 128 ms MUSE SYSTEM Q-T Interval 450 ms MUSE SYSTEM QTC Calculated (Bezet) 453 ms MUSE SYSTEM Calculated P [place] 36 degrees MUSE SYSTEM Calculated R [place] -51 degrees MUSE SYSTEM Calculated T [place] -62 degrees MUSE SYSTEM INTERPRETATION Sinus rhythm [...] Glucose, POC 104 60 - 199 mg/dL CERNER [employer] Comment: Supplemental ranges: <140 mg/dL before meals <180 mg/dL all other times of the day Blood specimen (specimen) 01/06/2014 8:28 AM EDT 01/06/2014 8:28 AM EDT Kenia Bauman MD POINT OF CARE TEST O RDERABLES Performing Organization Address [facility] Co de Phone Number [facility] [employer] * XR chest routine PA & lateral [...] AM EDT) Creatinine, Urine 167 mg/dL CERNER MILLENNIUM Urine specimen (specimen) 01/06/2014 3:06 AM EDT 01/06/2014 3:15 AM EDT Narrative Resulting Agency Comment Spec In Lab Kenia Bauman MD URINE ORDERABLES Performing Organization Address [facility]/ZIP Co de Phone Number CERNER MILLENNIUM * Sodium, urine, random (01/06/2014 3:06 AM EDT) Sodium, Urine 85 mmol/L CERNER MILLENNIUM Urine specimen (specimen) 01/06/2014 3:06 AM EDT 01/06/2014 3:15 AM EDT Narrative Resulting Agency Comment Spec In Lab Kenia Bauman MD URINE ORDERABLES STACYNER MILLENNIUM * (ABNORMAL) Urinalysis with microscopic (01/06/2014 [...] Urine Dipstick Hazy(A) Clear CERNER MILLENNIUM Specific [place] Urine Automated 1.019 1.002 - 1.030 CERNER [...] damage. Diagnosis of acute, evolving or recent PR requires a typical rise and gradual fall [...] consensus document of the Joint Society of Cardiology/[place] [employer] of [employer]iology Committee for the redefinition of myocardial infarction. ??Journal of the [place] College of Cardiology 2000; 36: 959-969] Creatine [...] MD HEMATOLOGY ORDERABLE S Performing Organization Address City/[facility]/ZIP Co de Phone Number [facility] * (ABNORMAL) Magnesium (01/06/2014 2:50 AM EDT) Magnesium 0.67(L) 0.69 - 1.07 mmol/L [facility] Blood specimen (specimen) 01/06/2014 2:50 AM EDT 01/06/2014 2:58 AM EDT Narrative Resulting Agency Comment Spec In Lab Kenia Bauman MD CHEMISTRY ORDERABLES Performing Organization Address [facility] de Phone Number [facility] * (ABNORMAL) Lipid panel (fasting) (01/06/2014 2:50 AM EDT) Cholesterol, Total 55 <=199 mg/dL [facility] Comment: Recommendations of the NCEP Adult Treatment Panel for the following risk cutoff thresholds for the [place] population: Desirable: <200 mg/dL Borderline High: 200-239 mg/dL High: > or = 240 mg/dL Triglyceride 148 <=149 mg/dL [facility] Comment: Reference Range: Normal triglycerides: ??<150 mg/dL Borderline high: ??150-199 mg/dL High: ??200-499 mg/dL Very high: ??>he=911 mg/dL TATI 2001; 285(19):7382-1564 HDL Cholesterol 26(L) >=40 mg/dL [facility] Comment: Reference range: ??Low HDL: ?? < 40 mg/dL ??Normal: ?40-60 mg/dL ??Desirable: > 60 mg/dL TATI 2001; 285(19):1379-4268 LDL Cholesterol -1 <=99 mg/dL [facility] Comment: Reference range: ?? Optimal: ?<100 mg/dL ?? Near Optimal/Above Optimal: ?? 100-129 mg/dL ?? Borderline high: ?130-159 mg/dL ?? High: ? 160-189 mg/dL ?? Very high: ?>yy=424 mg/dL TATI 2001: 285(19):4168-9130 Cholesterol/HDL Ratio 2.1 ratio CERNER MILLENNIUM Comment: A Cholesterol to HDL ratio below 4:1 is desirable. ??Studies suggest that increased CAD risk occurs at ratios above 5 for females and above 6 for men. ? [place] [employer] Association ??(http://www.americanheart.org) ? Yenny Int Med, 1994; 121:641 ? AM J Med, 1998; 105(1A):48S Blood specimen (specimen) 01/06/2014 2:50 AM EDT 01/06/2014 2:58 AM EDT Narrative Resulting Agency Comment Spec In Lab Kenia Bauman MD CHEMISTRY ORDERABLES [facility] KATHRYN * (ABNORMAL) Basic Metabolic Panel (non-fasting) (01/06/2014 2:50 AM EDT) [facility] Glucose 107 60 - 199 mg/dL CERNER MILLENNIUM Comment:Diabetes: >=200 mg/d L plus symptoms Blood Urea Nitrogen 31(H) 10 - 20 mg/dL CERNER MILLENNIUM Creatinine 1.41 0.80 - 1.50 mg/dL CERNER MILLENNIUM Comment: Please note that the pediatric reference intervals supplied above were not validated at [facility]. Results from pediatric patients should be interpreted [...] the following links into your internet browser. [email or web address] Blood specimen (specimen) 01/06/2014 2:50 AM EDT 01/06/2014 2:58 AM EDT Narrative Resulting Agency Comment Spec In Lab Kenia Bauman MD CHEMISTRY ORDERABLES Performing Organization Address City/[facility] Co de Phone Number MONICA PERALTA * EKG 12 Lead (01/06/2014 2:01 AM EDT) Ventricular rate 69 BPM MUSE SYSTEM Atrial Rate 69 BPM MUSE SYSTEM P-R Interval 212 ms MUSE SYSTEM QRS Duration 126 ms MUSE SYSTEM Q-T Interval 416 ms MUSE SYSTEM QTC Calculated (Bezet) 445 ms MUSE SYSTEM Calculated P [place] 18 degrees MUSE SYSTEM Calculated R [place] -55 degrees MUSE SYSTEM Calculated T [place] -70 degrees MUSE SYSTEM INTERPRETATION Sinus rhythm with 1st degree A-V block Left anterior fascicular block Non-specific intra-ventricula r conduction block T wave abnormality, consider inferior ischemia T wave abnormality, consider anterolateral ischemia Abnormal ECG Confirmed by MD William, Navid ([id number]) on 01/07/2014 4:01:06 PM MUSE SYSTEM 01/06/2014 2:01 AM EDT 01/07/2014 4:01 PM EDT Unknown ECG ORDERABLES Performing Organization Address City/[facility] Co de Phone Number MUSE SYSTEM documented in this encounter Visit Diagnoses Not on filedocumented in this encounter Administered Medications Inactive Administered Medications - up to 3 most recent administrations Medication Order MAR Action Action Date Dose Rate Site adenosine 90 mg in sodium chloride 0.9% 90 mL infusion (CLEAN ROOM ASSEMBLER) CONTINUOUS PRN, Starting on Thu01/06/14 at 1539, Until Thu01/11/14 at 1539, Cath (Intra-Procedure), Routine New Bag 01/06/2014 3:39 PM EDT 140 mcg/kg/min 776.2 mL/hr bivalirudin (ANGIOMAX) 250 mg in sodium chloride 0.9% 50 mL infusion (CLEAN ROOM ASSEMBLER) CONTINUOUS PRN, Starting on Thu01/06/14 at 1523, [...] Fontaine, RN) 0908 (Given - Provider: Loraine Saldiavr, RN) 0847 (Given - Provider: Ervin Fontaine [...] Provider: Yamile Raya RN)1201 (Given - Provider: Ervni Fontaine, NAHUN) ceFAZolin (ANCEF) 2g in dextrose [...] Saldivar, NAHUN) 0847 (Given - Provider: Ervin Fontaine RN) [...] 0847 (Given - Provider: Ervin Fontaine, NAHUN) metoprolol succinate (TOPROL-XL) XL tablet 50 mg 50 mg, Oral, DAILY, First dose on Thu01/08/14 at 1945, Until Discontinued, Routine 1149 (Given - Provider: Ervin Fontaine RN) 0908 (Given - Provider: Loraine Saldivar, NAHUN) neomycin-polymyxin B (NEOSPORIN) irrigation solution (COMPLETED) Irrigation, ONCE, On Thu01/10/14 at 1500, 1 dose, EP (Intra-Procedure) 1500 (Given - Provider: Yaron Don, NAHUN) pantoprazole (PROTONIX) tablet 40 mg (CANCELED) 40 [...] Anxiety, Routine 432 (Given - Provider: Teresita Lozano, NAHUN)2011 (Given - Provider: Yamile Raya, NAHUN) 2138 (Given - Provider: Yamile Raya RN) fentaNYL 50mcg/mL injection () 25-50 mcg, Intravenous, EVERY 5 MIN PRN, Starting on Thu01/10/14 at 1444, Until Thu01/11/14 at 0043, Pain, As needed to induce or maintain moderate sedation per [facility] Moderate Sedation Protocol, Not to exceed 50 [...] to induce or maintain moderate sedation per [facility] Moderate Sedation Protocol, Not to exceed 1 [...] RN) documented in this encounter Care Teams Floral Associate Relationship Specialty Start Date End Date Jennifer Haro MD PCP - General 01/07/12 01/30/14 documented as of this encounter
--- OUTSIDE RECORDS SUMMARY | 2024-04-19 15:32 | XMS_ITS | Encounter Summary ---
Author Organization [facility] [place] [address] Care Team Providers Care Junior Network Engineer Name Role Phone Dewayne Mcdermott MD Primary Care Provider [phone] Reason for Visit * Reason Comments Skin Check Encounter Details Date Type Department Care Team (Late st Contact Info) Description 05/27/2013 11:15 AM EST Office Visit Dermatology at [address] [phone] Adis Gonzalez MD [address] [place] [address], [place] [address] Irritant contact dermatitis (Primary Dx) Social History [...] a 63-year-old gentleman who is originally from [place] but spent many years in [place] and [place] before coming up to this area in [...] he could choose to do in the [place]: Walking in the beautiful winter landscape, skiing, cross-country skiing, or snowshoeing, which would involve a minimal financial investment to get started, or going to the [place] to do some swimming. We discussed getting [...] AM EST Hospital Encounter Non-Invasive [place] [address] Arrived documented as of this encounter Visit Diagnoses Diagnosis Irritant contact dermatitis- Primary Contact dermatitis and other eczema, due to unspecified cause documented in this encounter Care Teams Junior Network Engineer Relationship Specialty Start Date End Date Dewayne Mcdermott MD PCP - General 01/07/12 01/30/14 documented as of this encounter
--- OUTSIDE RECORDS SUMMARY | 2024-04-19 15:32 | XMS_ITS | Encounter Summary ---
Author Organization [facility] Address [facility] [place] [address] Care Team Providers Care Academic Tutor Name Role Phone Jennifer Haro MD Primary Care Provider [phone] Encounter Details Date Type Department Care Team (Late st Contact Info) Description 01/06/2014 4:00 PM EDT - 01/06/2014 6:00 PM EDT Surgery [place] [address] José Manuel Cole MD [facility] [place] [address] ELECTROPHYSIOLOGY PROCEDURE Social History Tobacco Use Types [...] a 91 day new device check at [facility] EP Device [facility]. 4. Transtelephonic device follow [...] 8:10 AM Kit Self MD [facility] Follow-Up Appointments Date and Time Provider and Specialty Location Jan 13, 2014 @ 2:[address] Bingham [facility] Your Inpatient Doctor: Kenia Bauman MD Your Primary Care Provider: JENNIFER HARO MD [phone] For questions regarding this document or issues relating to this hospitalization on the Medical Service, please contact your inpatient physician through the [facility] Senior Bookkeeper . Issues afterhours and on weekends will [...] times daily. 90 tablet 6 05/14/2013 01/27/2017 Blossvale-3 Fatty Acids (FISH OIL) 500 mg Cap Take by mouth daily. 01/14/2016 lamotrigine (LAMICTAL) 100 mg tablet Take 200 mg by mouth daily. 09/01/2018 alprazolam (XANAX XR) 3 mg 24 hr tablet Take 3 mg by mouth nightly. 09/18/2020 lactobac cmb #0-zfb-rggiohrwhc (PROBIOTIC & ACIDOPHILUS) 300-250 million cell-mg Cap [...] answered at this time. Patient discharged to [facility] with Daughter in stable condition. Wheelchair offered; patient elected to walk. * Edy Torres PA - 01/11/2014 12:10 PM EDT Patient Name: Shahnaz Santiago Patient Age: 63 y.o. Birthdate: 1950 Admit date: 01/06/2014 Attending Physician: Kenia Bauman MD Cardiac Electrophysiology Post-Iimplant Device Interrogation Note Shahnaz Santiago is a 63 y.o. male is POD # 1 following implant of a dual chamber, [employer] ICD for sustained ventricular tachycardia. He [...] in situ V45.02 Device data: Ventricular electrode: [employer] Buffalo Model# 0292 Serial# [id number] Bipolar, steroid-tipped, active-fixation, single coil DF-4 lead Access: Left axillary vein Location: RV apex R wave, ICD: 9.6 mV Pacing threshold, ICD: 0.6 V at 0.5 ms Impedance, ICD: 913 ohms (74 ohms for shock vector) Pace the diaphragm at 10 V: No Atrial electrode: [employer] Dextrus Model# 4136 Serial# [id number] Bipolar, steroid-tipped, active-fixation IS-1 lead Access: Left axillary vein Location Right atrial appendage P wave, ICD: 4.3 mV Pacing threshold, pacemaker: 1.7 V at 0.5 ms Impedance, pacemaker: 538 ohms Pace the diaphragm at 10 V: No Pulse generator: [employer] Incepta Model# E162 Serial# [id number] DDDR ICD Location: Subcutaneous Defibrillation testing was [...] ~ 91 days. Provider: MAXIMO Leija Provider#: [id number] Consult attending physician: Estefanía Cross MD * Raul Salmeron RN - 01/11/2014 8:04 AM EDT Inpatient Post ICD Implant Teaching Note Verbal teaching was performed today olta-pj-segy with the patient including the following: -Brief generalized teaching of how ICDs function, and the patient's specific indication for ICD implant -Activity restrictions post ICD implant -Remote monitoring of the ICD via telephone (patient was given [facility] Latitude communicator today). -ICD insertion [...] ICD placement today. Pt is insured with [employer] Blue exchange. No discharge needs identified at this time. Will continue to follow for coordination of care and discharge planning. Nora Schaeffer WIND TURBINE SERVICE TECHNICIAN CRC/Stacy Pabon MSN BSN RN CRC Office of Care Managment Pager [phone] * Yamile Raya RN - 01/10/2014 6:30 [...] One episode 7 beat run VT ~150bpm. [place] warm, needed to urinate during that time. [...] quantitative left ventricular ejection fraction by biplane Pza's method is 56%. There are no left [...] in to convince him not to leave [facility] without an ICD. Will await his decision. [...] Jennifer Harris - 01/06/2014 4:24 PM EDT Ground Hand Encounter Note Patient Name: Shahnaz Santiago : [id number] MR#: [id number] Admit Date: 01/06/2014 1:50 AM Hospital Day 0 days Narrative: Shahnaz was happy and open to english and reading instructor visit. Assessment: We had a long conversation of what he considered that has been militating against a health life-style: smoking. Moreover he was not a latter day person based on his experiences over the years yet accepts prayers. Intervention and Outcome: We prayed for God's healing & strength. Follow-up: Yes Time in Direct Care: 35 mins Jennifer Zimmer Steven 01/06/2014 * Stacy Pabon RN - 01/06/2014 2:17 PM EDT Office of Care Management Clinical Hat And Cap Sewer Patient Name: Shahnaz Santiago : 1950, 63 yrs Admission Date: 01/06/2014 1:50 AM Attending: Kenia Bauman MD Order to Admit: Signed Record reviewed and patient discussed with multidisciplinary team. Lives in [place], [place] 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 He is independent and drives. Insurance: No Insurance. (Guillermo Aaron SAP BASIS CONSULTANT notified) [facility] in [facility] Medical/Surgical:63 yo man with ASCVD [...] Pabon MSN RN Clinical Resource Coordinators Phone: [phone] Pager [phone] documented in this encounter H&P Notes * Edy Berry MD - 01/07/2014 5:02 PM EDT Inpatient Cardiac Electrophysiology Follow-up Note Date of Consultation: 01/07/2014 Admit Date: 01/06/2014 Place of Service: Inpatient Unit Reason for Consult: We are seeing Shahnaz Santiago for the evaluation of ventricular tachycardia Patient Active Problem List Diagnosis ??? ASCVD (arteriosclerotic cardiovascular disease) Overview Note: ?? Heart catheterization in [facility] in [...] stress test at [facility] in [place], [place] May 02, 2013 during which he developed left shoulder and arm discomfort during submaximal exercise on the treadmill and after which he was converted to a pharmacologic test; nuclear imaging showed ejection fraction of 45% with a partially reversible inferior defect ?? Cath [facility] 05/13/2013: normal left main, mild diffuse disease [...] ASCVD (PCI to Cx, LAD; no hx NC) and tobacco use. 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 He has continued to go tocardiac rehab since then and had been doing well. On 01/04, he was walking in the [facility] when he developed sudden onset shortness of breath, which made him feel wobbly. He denied chest pain, palpitations (except for unusual pulsing in right ear lobe), or syncope though he felt weak and near-syncopal with exertion intermittently. His dyspnea remained present when he awoke the next morning, and he went to [facility], where ECG showed VT. He was cardioverted with return to NSR with 1st degree AVB, sub-mm STD in the lateral leads. His troponin was indeterminate. The patient was transferred to the [facility], where he has remained in NSR. [...] mg by mouth 2 times daily. ??? Blossvale-3 Fatty Acids (FISH OIL) 500 mg Cap Take by mouth daily. ??? multivitamin capsule Take 1 capsule by mouth daily. ??? LANCETS MISC by Misc.(Non-Drug; Combo Route) route. ??? lamotrigine (LAMICTAL) 100 mg tablet Take 100 mg by mouth daily. ??? alprazolam (XANAX XR) 3 mg 24 hr tablet Take 3 mg by mouth every morning. ? ? lactobac cmb #1-ked-egtolfuzrd (PROBIOTIC & ACIDOPHILUS) 300-250 million cell- mg [...] of cardiac arrest, pt believes due to NC at age of 53. Heavy smoker. His mother had PVD. 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 Heart catheterization in [facility] in [...] stress test at [facility] in [place], [place] May 02, 2013 during which he developed left shoulder and arm discomfort during submaximal exercise on the treadmill and after which he was converted to a pharmacologic test; nuclear imaging showed ejection fraction of 45% with a partially reversible inferior defect ?? Cath [facility] 05/13/2013: normal left main, mild diffuse disease [...] ASCVD (PCI to Cx, LAD; no hx NC) and tobacco use. [place] recently had a [...] the next morning, and he went to [facility], where ECG showed VT. He was cardioverted with return to NSR with 1st degree AVB, sub-mm STD in the lateral leads. His troponin was indeterminate. The patient was transferred to the [facility], where he has remained in NSR. [...] mg by mouth 2 times daily. ??? Blossvale-3 Fatty Acids (FISH OIL) 500 mg Cap Take by mouth daily. ??? multivitamin capsule Take 1 capsule by mouth daily. ??? LANCETS MISC by Misc.(Non-Drug; Combo Route) route. ??? lamotrigine (LAMICTAL) 100 mg tablet Take 100 mg by mouth daily. ??? alprazolam (XANAX XR) 3 mg 24 hr tablet Take 3 mg by mouth every morning. ? ? lactobac cmb #6-zkd-ynfwerzdxm (PROBIOTIC & ACIDOPHILUS) 300-250 million cell- mg [...] of cardiac arrest, pt believes due to NC at age of 53. Heavy smoker. His mother had PVD. 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 He should ideally check pulse for any recurrent symptoms of VT (e.g. Weakness, SOB) and not delay hospital presentation as he did this time. Will discuss more with him in AM. * Kenia Bauman MD - 01/06/2014 2:45 AM EDT Cardiology Admission History and Physical Patient Name: Shahnaz Santiago Service: [address] Responsible Attending: Kenia Bauman MD, MD PCP: JENNIFER HARO MD PCP phone #: [phone] ID/Chief Complaint: 63 yo man with ASCVD [...] a chronic, has beenaffecting him 20 years, ntfvzaglx-ha-srilspacpf, sternally located discomfort that is constant and [...] change from his baseline he went to [facility] ED for evaluation.There he was [...] =indeterminate). The patient was then transferred to [facility]. , OSH labs prior to transfer: 15.2 [...] stress test at [facility] in [place], [place] May 02, 2013 during which he developed left shoulder and arm discomfort during submaximal exercise on the treadmill and after which he was converted to a pharmacologic test; nuclear imaging showed ejection fraction of 45% with a partially reversible inferior defect ?? Cath [facility] 05/13/2013: normal left main, mild diffuse disease [...] Cap Take by mouth daily. Generic drug: Blossvale-3 Fatty Acids Refills: 0 glipiZIDE 5 mg [...] by mouth daily. Generic drug: lactobac cmb #3-kky-ewhechkscd Refills: 0 rosuvastatin 20 mg Tab Commonly [...] ischemia Kalyan Babb, PGY-2 Team Pager # [phone] Cardiology Attending Addendum I have interviewed and [...] 01/12/2014 11:50 AM EDTAssociated Order(s): SCAN DOC: WHEEL ADJUSTER documented in this encounter Miscellaneous Notes * [...] a chronic, has beenaffecting him 20 years, qxsezcwhi-av-nykblxtejp, sternally located discomfort that is constant and [...] change from his baseline he went to [facility] ED for evaluation.There he was [...] =indeterminate). The patient was then transferred to [facility]. Hospital Course: # Ventricular tachycardia The patient [...] smoking (1 pack/day) after moving back to [place]. A consult to smoking cessation was placed [...] no pre-excitation or conduction aberrancy identified. The hxtkkfpw-rx-HIA < QRS-QRS just prior to the observed [...] Cap Take by mouth daily. Generic drug: Blossvale-3 Fatty Acids Refills: 0 glipiZIDE 5 mg [...] by mouth daily. Generic drug: lactobac cmb #3-rab-nqkaxgqpoh Refills: 0 rosuvastatin 20 mg Tab Commonly [...] Center 02/07/2014 8:10 AM Kit Self MD [facility] Cardio [facility] Follow-Up Appointments Date and Time Provider and Specialty Location Jan 13, 2014 @ 2[facility] [facility]: Kenia Bauman MD Your Primary Care Provider: JENNIFER HARO MD [phone] For questions regarding this document or issues relating to this hospitalization on the Medical Service, please contact your inpatient physician through the [facility] Senior Bookkeeper . Issues afterhours and on weekends will be handled by the Hospitalist staff on-call. Future Appointments and Orders Future Appointments: Provider: Department: Dept Phone: Center: 02/07/2014 8:10 AM Kit Self MD Cardiology [phone] [facility] Joint Appt Nurse One Cardiology NAHUN Corrales 4A [phone] [facility] 04/10/2014 9:30 AM Raul Salmeron RN Cardiology [phone] [facility] For questions regarding this document or issues relating to this hospitalization on the Medical Service, please contact your inpatient physician through the [facility] Senior Bookkeeper . Issues afterhours and on weekends will be handled by the Hot Baller staff on-call. Signed: KENIA BAUMAN MD * [...] in the out pt CR program at [facility]. He was admitted with LLOYD and VT. Cardiac cath showed no ischemic etiology of sx. Being considered for ICD. Will refer him back to the [facility] prog at discharge * Miscellaneous - Provider, Scanning - 01/07/2014 2:41 PM EDT * Op Note - José Manuel Cole MD - 01/06/2014 5:34 PM EDT Electrophysiology Study Senior Bookkeeper: José Manuel Cole MD Indication: Ventricular tachycardia [...] no pre-excitation or conduction aberrancy identified. The ibwrpfih-qn-FDO < QRS-QRS just prior to the observed [...] AM EST Hospital Encounter [place] [address] Arrived documented as of this encounter Procedures Procedure Name Priority Date/Time Associated Diagnosis Comments WHEEL ADJUSTER SCAN 01/12/2014 11:50 AM EDT POCT GLUCOSE [...] Routine 01/07/20 3:58 PM EDT CARDIAC ENZYMES ([facility]) Routine 01/06/2014 12:40 PM EDT POCT GLUCOSE Routine 01/06/2014 12:15 PM EDT CARDIAC ENZYMES ([facility]) Routine 01/06/2014 11:30 AM EDT APTT STAT [...] in this encounter Results * SCAN DOC: WHEEL ADJUSTER (01/12/2014 11:50 AM EDT) Anatomical Region Laterality [...] CARE TEST O RDERABLES MONICA PERALTA * XR chest routine PA [...] ORDERABLE S CERDELMAR ROSEENNIUM * (ABNORMAL) Hemogram (01/11/2014 3:56 [...] MD HEMATOLOGY ORDERABLE S CERDELMAR ROSEENNIUM * Magnesium (01/11/2014 3:56 AM EDT) [...] intervals supplied above were not validated at [facility]. Results from pediatric patients should be interpreted [...] the following links into your internet browser. [email or web address] Blood specimen (specimen) 01/11/2014 3:56 AM EDT 01/11/2014 4:21 AM EDT Narrative Resulting Agency Comment Spec In Lab Kenia Bauman MD CHEMISTRY ORDERABLES Performing Organization Address [facility] de Phone Number [facility] * POCT Glucose (01/11/2014 3:46 AM EDT) Glucose, POC 137 60 - 199 mg/dL [facility] Comment: Supplemental ranges: <140 mg/dL before meals <180 mg/dL all other times of the day Blood specimen (specimen) 01/11/2014 3:46 AM EDT 01/11/2014 3:46 AM EDT Kenia Bauman MD POINT OF CARE TEST O RDERABLES Performing Organization Address [facility] de Phone Number [email or web address] * POCT Glucose (01/10/2014 11:57 PM EDT) Glucose, POC 173 60 - 199 mg/dL [facility] Comment: Supplemental ranges: <140 mg/dL before meals <180 mg/dL all other times of the day Blood specimen (specimen) 01/10/2014 11:57 PM EDT 01/10/2014 11:57 PM EDT Kenia Bauman MD POINT OF CARE TEST O RDERABLES Performing Organization Address [facility] de Phone Number [email or web address] * (ABNORMAL) POCT Glucose (01/10/2014 8:31 PM EDT) Glucose, POC 201(H) 60 - 199 mg/dL [facility] Comment: Supplemental ranges: <140 mg/dL before meals <180 mg/dL all other times of the day Blood specimen (specimen) 01/10/2014 8:31 PM EDT 01/10/2014 8:31 PM EDT Kenia Bauman MD POINT OF CARE TEST O RDMARY Performing Organization Address City/[facility] Co de Phone Number [facility] * POCT Glucose (01/10/2014 6:04 PM EDT) Glucose, POC 164 60 - 199 mg/dL [facility] Comment: Supplemental ranges: <140 mg/dL before meals <180 mg/dL all other times of the day Blood specimen (specimen) 01/10/2014 6:04 PM EDT 01/10/2014 6:04 PM EDT Kenia Bauman MD POINT OF CARE TEST O RDERALOREE Performing Organization Address [facility] de Phone Number [facility] * Electrophysiology Procedure (01/10/2014 5:19 PM [...] with O-silk. Final Parameters: Ventricular electrode: ?? flatev Buffalo Model# 0292 Serial# [id number] ??Bipolar, steroid-tipped, active-fixation, ??single coil DF-4 lead ??Access: ? Left axillary vein ??Location: ?RV apex ??R wave, ICD: ? 9.6 mV ??Pacing threshold, ICD: ? 0.6 V at 0.5 ms ??Impedance, ICD: ? 913 ohms (74 ohms for shock vector) ??Pace the diaphragm at 10 V: ??No Atrial electrode: ?? flatev Dextrus Model# 4136 Serial# [id number] ??Bipolar, steroid-tipped, active-fixation IS-1 lead ??Access: ? Left axillary vein ??Location ? Right atrial appendage ??P wave, ICD: ? 4.3 mV ??Pacing threshold, pacemaker: ??1.7 V at 0.5 ms ??Impedance, pacemaker: ??538 ohms ??Pace the diaphragm at 10 V: ??No Pulse generator: ? [employer] Incepta Model# E162 Serial# [id number] DDDR ICD ??Location: ?Subcutaneous Defibrillation testing was [...] major muscle withO-silk. Final Parameters: Ventricular electrode: flatev Buffalo Model# 0292 Serial# [id number] Bipolar, steroid-tipped, active-fixation, single coil DF-4 lead Access: Left axillary vein Location: RV apex R wave, ICD: 9.6 mV Pacing threshold, ICD: 0.6 V at 0.5 ms Impedance, ICD: 913 ohms (74 ohms for shock vector) Pace the diaphragm at 10 V: No Atrial electrode: [employer] Dextrus Model# 4136 Serial# [id number] Bipolar, steroid-tipped, active-fixation IS-1 lead Access: Left axillary vein Location Right atrial appendage P wave, ICD: 4.3 mV Pacing threshold, pacemaker: 1.7 V at 0.5 ms Impedance, pacemaker: 538 ohms Pace the diaphragm at 10 V: No Pulse generator: [employer] Incepta Model# E162 Serial# [id number] DDDR ICD Location: Subcutaneous Defibrillation testing was [...] POC 218(H) 60 - 199 mg/dL [facility] Comment: Supplemental ranges: <140 mg/dL before meals <180 mg/dL all other times of the day Blood specimen (specimen) 01/10/2014 11:39 AM EDT 01/10/2014 11:39 AM EDT Kenia Bauman MD POINT OF CARE TEST O RDERABLES Performing Organization Address [facility] Co de Phone Number MONICA [...] O RDERABLES Performing Organization Address [facility] de Phone Number MONICA PERALTA * POCT Glucose (01/10/2014 4:25 AM EDT) Glucose, POC 153 60 - 199 mg/dL [facility] Comment: Supplemental ranges: <140 mg/dL before meals <180 mg/dL all other times of the day Blood specimen (specimen) 01/10/2014 4:25 AM EDT 01/10/2014 4:25 AM EDT Kenia Bauman MD POINT OF CARE TEST O RDERABLES Performing Organization Address [facility] de Phone Number MONICA PERALTA * [...] MD HEMATOLOGY ORDERABLE S Performing Organization Address City/[facility]/ZIP Co de Phone Number CERNER MILLENNIUM * (ABNORMAL) Magnesium (01/10/2014 4:21 AM EDT) Magnesium 0.67(L) 0.69 - 1.07 mmol/L CERNER MILLENNIUM Blood specimen (specimen) 01/10/2014 4:21 AM EDT 01/10/2014 4:36 AM EDT Narrative Resulting Agency Comment Spec In Lab Kenia Bauman MD CHEMISTRY ORDERABLES Performing Organization Address [facility] Co de Phone Number CERNER MILLENNIUM * Basic Metabolic Panel (non-fasting) (01/10/2014 4:21 AM EDT) Glucose 161 60 - 199 mg/dL CERNER MILLENNIUM Comment:Diabetes: >=200 mg/d L plus symptoms Blood Urea Nitrogen 17 10 - 20 mg/dL CERNER MILLENNIUM Creatinine 0.91 0.80 - 1.50 mg/dL CERNER MILLENNIUM Comment: Please note that the pediatric reference intervals supplied above were not validated at [facility]. Results from pediatric patients should be interpreted [...] the following links into your internet browser. [email or web address] Blood specimen (specimen) 01/10/2014 4:21 AM EDT 01/10/2014 4:36 AM EDT Narrative Resulting Agency Comment Spec In Lab Kenia Bauman MD CHEMISTRY ORDERABLES Performing Organization Address [facility] Co de Phone Number [facility] * POCT Glucose (01/09/2014 11:25 PM EDT) Glucose, POC 164 60 - 199 mg/dL [facility] Comment: Supplemental ranges: <140 mg/dL before meals <180 mg/dL all other times of the day Blood specimen (specimen) 01/09/2014 11:25 PM EDT 01/09/2014 11:25 PM EDT Kenia Bauman MD POINT OF CARE TEST O RDERABLES Performing Organization Address [facility] Co de Phone Number [facility] * (ABNORMAL) POCT Glucose (01/09/2014 8:03 PM EDT) Glucose, POC 204(H) 60 - 199 mg/dL [facility] Comment: Supplemental ranges: <140 mg/dL before meals <180 mg/dL all other times of the day Blood specimen (specimen) 01/09/2014 8:03 PM EDT 01/09/2014 8:03 PM EDT Kenia Bauman MD POINT OF CARE TEST O RDERABLES Performing Organization Address [facility] Co de Phone Number [facility] * (ABNORMAL) POCT Glucose (01/09/2014 4:34 PM EDT) Glucose, POC 231(H) 60 - 199 mg/dL [facility] Comment: Supplemental ranges: <140 mg/dL before meals <180 mg/dL all other times of the day Blood specimen (specimen) 01/09/2014 4:34 PM EDT 01/09/2014 4:34 PM EDT Kenia Bauman MD POINT OF CARE TEST O RDERABLES Performing Organization Address [facility] de Phone Number [facility] * (ABNORMAL) POCT Glucose (01/09/2014 11:44 AM EDT) Glucose, POC 280(H) 60 - 199 mg/dL [facility] Comment: Supplemental ranges: <140 mg/dL before meals <180 mg/dL all other times of the day Blood specimen (specimen) 01/09/2014 11:44 AM EDT 01/09/2014 11:44 AM EDT Kenia Bauman MD POINT OF CARE TEST O RDERALOREE Performing Organization Address [facility] de Phone Number [facility] * POCT Glucose (01/09/2014 7:51 AM EDT) Glucose, POC 148 60 - 199 mg/dL [facility] Comment: Supplemental ranges: <140 mg/dL before meals <180 mg/dL all other times of the day Blood specimen (specimen) 01/09/2014 7:51 AM EDT 01/09/2014 7:51 AM EDT Kenia Bauman MD POINT OF CARE TEST O RDERABLES Performing Organization Address [facility] Co de Phone Number MONICA ROSEENNIUM * Basic Metabolic Panel (non-fasting) (01/09/2014 4:32 AM EDT) [facility] Glucose 124 60 - 199 mg/dL CERNER MILLENNIUM Comment:Diabetes: >=200 mg/d L plus symptoms Blood Urea Nitrogen 15 10 - 20 mg/dL CERNER MILLENNIUM Creatinine 0.87 0.80 - 1.50 mg/dL CERNER MILLENNIUM Comment: Please note that the pediatric reference intervals supplied above were not validated at [facility]. Results from pediatric patients should be interpreted [...] the following links into your internet browser. [email or web address] Blood specimen (specimen) 01/09/2014 4:32 AM EDT 01/09/2014 4:38 AM EDT Narrative Resulting Agency Comment Spec In Lab Kenia Bauman MD CHEMISTRY ORDERABLES [facility] [email or web address] * (ABNORMAL) Differential, Automated (01/09/2014 4:32 AM [...] Kenia Bauman MD HEMATOLOGY ORDERABLE S MONICA BNEITEZIUM * (ABNORMAL) Hemogram (01/09/2014 4:32 AM EDT) White Blood Cell 8.0 4.0 - 10.0 x10(3)/mc L CERNER MILLENNIUM Red Blood Cell 4.83 4.63 - 6.08 x10(6)/mc L [facility] Hemoglobin 14.5 13.7 - 17.5 gm/dL [facility] Comment:Repeated & verified Hematocrit 43.0 40.0 - 51.0 % [facility] Mean Cell Volume 89.0 79.0 - 92.0 fL [facility] Mean Cell Hemoglobin 30.0 25.6 - 32.2 pg [facility] Mean Cell Hemoglobin Concentration 33.7 32.0 - 36.5 gm/dL [facility] Platelet 184 145 - 370 x10(3)/mc L [facility] MILLENNIUM RDW Standard Deviation 47.4(H) 35.0 - 46.0 fL [facility] MILLENNIUM RDW coefficient of variation 14.8(H) 10.9 - 14.4 % [facility] Mean Platelet Volume 10.3 9.0 - 12.0 fL [facility] Blood specimen (specimen) 01/09/2014 4:32 AM EDT 01/09/2014 4:38 AM EDT Narrative Resulting Agency Comment Spec In Lab Kenia Bauman MD HEMATOLOGY ORDERABLE S [facility] * Magnesium (01/09/2014 4:32 AM EDT) Pathologist [facility] [place] Magnesium 0.76 0.69 - 1.07 mmol/L [facility] Blood specimen (specimen) 01/09/2014 4:32 AM EDT 01/09/2014 4:38 AM EDT Narrative Resulting Agency Comment Spec In Lab Kenia Bauman MD CHEMISTRY ORDERABLES [facility] * POCT Glucose (01/09/2014 4:19 AM EDT) Pathologist [facility] [place] Glucose, POC 114 60 - 199 mg/dL [facility] Comment: Supplemental ranges: <140 mg/dL before meals <180 mg/dL all other times of the day Blood specimen (specimen) 01/09/2014 4:19 AM EDT 01/09/2014 4:19 AM EDT Kenia Bauman MD POINT OF CARE TEST O RDERABLES Performing Organization Address [facility] de Phone Number [facility] * POCT Glucose (01/09/2014 1:41 AM EDT) Glucose, POC 155 60 - 199 mg/dL [facility] Comment: Supplemental ranges: <140 mg/dL before meals <180 mg/dL all other times of the day Blood specimen (specimen) 01/09/2014 1:41 AM EDT 01/09/2014 1:41 AM EDT Kenia Bauman MD POINT OF CARE TEST O RDERALOREE Performing Organization Address [facility] de Phone Number [facility] * (ABNORMAL) POCT Glucose (01/08/2014 11:19 PM EDT) Glucose, POC 252(H) 60 - 199 mg/dL [facility] Comment: Supplemental ranges: <140 mg/dL before meals <180 mg/dL all other times of the day Blood specimen (specimen) 01/08/2014 11:19 PM EDT 01/08/2014 11:19 PM EDT Kenia Bauman MD POINT OF CARE TEST O RDERABLES Performing Organization Address [facility] de Phone Number [facility] * (ABNORMAL) POCT Glucose (01/08/2014 7:50 PM EDT) Glucose, POC 205(H) 60 - 199 mg/dL [facility] Comment: Supplemental ranges: <140 mg/dL before meals <180 mg/dL all other times of the day Blood specimen (specimen) 01/08/2014 7:50 PM EDT 01/08/2014 7:50 PM EDT Kenia Bauman MD POINT OF CARE TEST O RDERABLES Performing Organization Address [facility] de Phone Number [facility] * POCT Glucose (01/08/2014 5:17 PM EDT) Glucose, POC 194 60 - 199 mg/dL [facility] Comment: Supplemental ranges: <140 mg/dL before meals <180 mg/dL all other times of the day Blood specimen (specimen) 01/08/2014 5:17 PM EDT 01/08/2014 5:17 PM EDT Kenia Bauman MD POINT OF CARE TEST O RDERALOREE Performing Organization Address [facility] Co de Phone Number [facility] * (ABNORMAL) POCT Glucose (01/08/2014 2:21 PM EDT) Glucose, POC 230(H) 60 - 199 mg/dL [facility] Comment: Supplemental ranges: <140 mg/dL before meals <180 mg/dL all other times of the day Blood specimen (specimen) 01/08/2014 2:21 PM EDT 01/08/2014 2:21 PM EDT Kenia Bauman MD POINT OF CARE TEST O RDERALOREE Performing Organization Address [facility] de Phone Number [facility] * (ABNORMAL) POCT Glucose (01/08/2014 12:04 PM EDT) Glucose, POC 240(H) 60 - 199 mg/dL [facility] Comment: Supplemental ranges: <140 mg/dL before meals <180 mg/dL all other times of the day Blood specimen (specimen) 01/08/2014 12:04 PM EDT 01/08/2014 12:04 PM EDT Kenia Bauman MD POINT OF CARE TEST O RDERALOREE Performing Organization Address [facility] de Phone Number [facility] * POCT Glucose (01/08/2014 7:56 AM EDT) Glucose, POC 125 60 - 199 mg/dL CERNER MILLENNIUM Comment: Supplemental ranges: <140 mg/dL before meals <180 mg/dL all other times of the day Blood specimen (specimen) 01/08/2014 7:56 AM EDT 01/08/2014 7:56 AM EDT Kenia Bauman MD POINT OF CARE TEST O RDERABLES CERNER MILLENNIUM * (ABNORMAL) Magnesium (01/08/2014 7:03 AM EDT) Magnesium 0.58(L) 0.69 - 1.07 mmol/L CERNER MILLENNIUM Blood specimen (specimen) 01/08/2014 7:03 AM EDT 01/08/2014 7:09 AM EDT Narrative Resulting Agency Comment Spec In Lab Kenia Bauman MD CHEMISTRY ORDERABLES Performing Organization Address [facility] Co de Phone Number CERNER [...] Kenia Bauman MD HEMATOLOGY ORDERABLE S CERDELMAR ORSEENNIUM * (ABNORMAL) Hemogram (01/08/2014 7:03 AM EDT) [...] HEMATOLOGY ORDERABLE S MONICA ROSEENNIUM * (ABNORMAL) Basic Metabolic Panel (non-fasting) (01/08/2014 7:03 AM EDT) Glucose 133 60 - 199 mg/dL CERNER MILLENNIUM Comment:Diabetes: >=200 mg/d L plus symptoms Blood Urea Nitrogen 16 10 - 20 mg/dL CERNER MILLENNIUM Creatinine 0.74(L) 0.80 - 1.50 mg/dL CERNER MILLENNIUM Comment: Please note that the pediatric reference intervals supplied above were not validated at [facility]. Results from pediatric patients should be interpreted [...] the following links into your internet browser. [email or web address] Blood specimen (specimen) 01/08/2014 7:03 AM EDT 01/08/2014 7:08 AM EDT Narrative Resulting Agency Comment Spec In Lab Kenia Bauman MD CHEMISTRY ORDERABLES Performing Organization Address [facility] de Phone Number [facility] * (ABNORMAL) POCT Glucose (01/08/2014 3:55 AM EDT) Glucose, POC 219(H) 60 - 199 mg/dL [facility] Comment: Supplemental ranges: <140 mg/dL before meals <180 mg/dL all other times of the day Blood specimen (specimen) 01/08/2014 3:55 AM EDT 01/08/2014 3:55 AM EDT Kenia Bauman MD POINT OF CARE TEST O RDERABLES Performing Organization Address [facility] Phone Number [facility] * POCT Glucose (01/07/2014 11:51 PM EDT) Glucose, POC 153 60 - 199 mg/dL [facility] Comment: Supplemental ranges: <140 mg/dL before meals <180 mg/dL all other times of the day Blood specimen (specimen) 01/07/2014 11:51 PM EDT 01/07/2014 11:51 PM EDT Kenia Bauman MD POINT OF CARE TEST O RDERABLES Performing Organization Address [facility] Phone Number [facility] * POCT Glucose (01/07/2014 9:32 PM EDT) Glucose, POC 190 60 - 199 mg/dL [facility] Comment: Supplemental ranges: <140 mg/dL before meals <180 mg/dL all other times of the day Blood specimen (specimen) 01/07/2014 9:32 PM EDT 01/07/2014 9:32 PM EDT Kenia Bauman MD POINT OF CARE TEST O RDERABLES Performing Organization Address [facility] de Phone Number [facility] * (ABNORMAL) POCT Glucose (01/07/2014 7:36 PM EDT) Glucose, POC 223(H) 60 - 199 mg/dL [facility] Comment: Supplemental ranges: <140 mg/dL before meals <180 mg/dL all other times of the day Blood specimen (specimen) 01/07/2014 7:36 PM EDT 01/07/2014 7:36 PM EDT Kenia Bauman MD POINT OF CARE TEST O RDERALOREE Performing Organization Address [facility] de Phone Number [facility] * POCT Glucose (01/07/2014 5:32 PM EDT) Glucose, POC 180 60 - 199 mg/dL [facility] Comment: Supplemental ranges: <140 mg/dL before meals <180 mg/dL all other times of the day Blood specimen (specimen) 01/07/2014 5:32 PM EDT 01/07/2014 5:32 PM EDT Kenia Bauman MD POINT OF CARE TEST O [place] Performing Organization Address [facility] de Phone Number [facility] * (ABNORMAL) POCT Glucose (01/07/2014 1:24 PM EDT) Glucose, POC 240(H) 60 - 199 mg/dL [facility] Comment: Supplemental ranges: <140 mg/dL before meals <180 mg/dL all other times of the day Blood specimen (specimen) 01/07/2014 1:24 PM EDT 01/07/2014 1:24 PM EDT Kenia Bauman MD POINT OF CARE TEST O RDERALOREE Performing Organization Address [facility] de Phone Number [facility] * (ABNORMAL) Magnesium (01/07/2014 10:00 AM EDT) Magnesium 0.66(L) 0.69 - 1.07 mmol/L [facility] Blood specimen (specimen) 01/07/2014 10:00 AM EDT 01/07/2014 10:17 AM EDT Narrative Resulting Agency Comment Spec In Lab Kenia Bauman MD CHEMISTRY ORDERABLES Performing Organization Address [facility] de Phone Number MONICA PERALTA * Potassium (01/07/2014 10:00 AM EDT) Potassium 4.3 3.5 - 5.0 mmol/L [facility] Comment: Please note: ??Patients with WBC >100,000 [...] Bauman MD CHEMISTRY ORDERABLES Performing Organization Address [facility] de Phone Number MONICA BENITEZIUM * POCT Glucose (01/07/2014 9:23 AM EDT) Glucose, POC 178 60 - 199 mg/dL [facility] Comment: Supplemental ranges: <140 mg/dL before meals <180 mg/dL all other times of the day Blood specimen (specimen) 01/07/2014 9:23 AM EDT 01/07/2014 9:23 AM EDT Kenia Bauman MD POINT OF CARE TEST O RDERABLES Performing Organization Address [facility] de Phone Number MONICA PERALTA * Differential, Automated (01/07/2014 3:40 AM EDT) Neutrophil % 60.4 34.0 - 71.0 % [facility] MILLENNIUM Neutrophil Absolute 5.37 1.50 - 6.30 x10(3)/mcL CERNER MILLENNIUM Lymph % 29.1 19.0 - 53.0 % [facility] Lymphocytes Abs 2.6 1.0 - 3.6 x10(3)/mcL [facility] MILLENNIUM Monocyte % 5.9 4.0 - 13.0 [...] HEMATOLOGY ORDERABLE S CERNER MILTONENNIUM * (ABNORMAL) Hemogram (01/07/2014 3:40 AM EDT) [...] ORDERABLE S Performing Organization Address [facility] Co de Phone Number [facility] MILLENNIUM * (ABNORMAL) Magnesium (01/07/2014 3:40 AM EDT) Magnesium 0.61(L) 0.69 - 1.07 mmol/L CERNER MILLENNIUM Blood specimen (specimen) 01/07/2014 3:40 AM EDT 01/07/2014 3:43 AM EDT Narrative Resulting Agency Comment Spec In Lab Kenia Bauman MD CHEMISTRY ORDERABLES Performing Organization Address [facility] de Phone Number [facility] MILTONENNIUM * (ABNORMAL) Basic Metabolic Panel (non-fasting) (01/07/2014 3:40 AM EDT) Pathologist [facility] [place] Glucose 93 60 - 199 mg/dL [facility] MILLENNIUM Comment:Diabetes: >=200 mg/d L plus symptoms Blood Urea Nitrogen 20 10 - 20 mg/dL CERNER MILLENNIUM Creatinine 0.81 0.80 - 1.50 mg/dL CERNER MILLENNIUM Comment: Please note that the pediatric reference intervals supplied above were not validated at [facility]. Results from pediatric patients should be interpreted in conjunction to the patient's age, height and muscle mass. Sodium 140 135 - 145 mmol/L [facility] MILLENNIUM Potassium 3.4(L) 3.5 - 5.0 mmol/L [...] the following links into your internet browser. [email or web address] Blood specimen (specimen) 01/07/2014 3:40 AM EDT 01/07/2014 3:43 AM EDT Narrative Resulting Agency Comment Spec In Lab Kenia Bauman MD CHEMISTRY ORDERABLES Performing Organization Address [facility] Co de Phone Number [facility] * POCT Glucose (01/07/2014 3:39 AM EDT) Glucose, POC 95 60 - 199 mg/dL [facility] Comment: Supplemental ranges: <140 mg/dL before meals <180 mg/dL all other times of the day Blood specimen (specimen) 01/07/2014 3:39 AM EDT 01/07/2014 3:39 AM EDT Kenia Bauman MD POINT OF CARE TEST O RDERABLES Performing Organization Address [facility] Co de Phone Number [facility] * POCT Glucose (01/06/2014 11:40 PM EDT) Glucose, POC 130 60 - 199 mg/dL [facility] Comment: Supplemental ranges: <140 mg/dL before meals <180 mg/dL all other times of the day Blood specimen (specimen) 01/06/2014 11:40 PM EDT 01/06/2014 11:40 PM EDT Kenia Bauman MD POINT OF CARE TEST O [place] Performing Organization Address [facility] de Phone Number [facility] Soxiable * POCT Glucose (01/06/2014 9:23 PM EDT) Glucose, POC 173 60 - 199 mg/dL [facility] [email or web address] Comment: Supplemental ranges: <140 mg/dL before meals <180 mg/dL all other times of the day Blood specimen (specimen) 01/06/2014 9:23 PM EDT 01/06/2014 9:23 PM EDT Kenia Bauman MD POINT OF CARE TEST O [place] Performing Organization Address [facility] de Phone Number [facility] [email or web address] * POCT Glucose (01/06/2014 6:42 PM EDT) Glucose, POC 125 60 - 199 mg/dL [facility] [email or web address] Comment: Supplemental ranges: <140 mg/dL before meals <180 mg/dL all other times of the day Blood specimen (specimen) 01/06/2014 6:42 PM EDT 01/06/2014 6:42 PM EDT Kenia Bauman MD POINT OF CARE TEST O [place] Performing Organization Address [facility] de Phone Number [facility] [employer] * Electrophysiology Procedure (01/06/2014 5:20 PM EDT) [...] Other Narrative 01/09/2014 7:14 AM EDT ?[facility] ? Cardiac Catheterization/Intervention Report ? Patient Name: Pamela, Shahnaz ? Procedure Date: 01/06/2014 ? A #: [id number] ? Primary Physician: Jaron Jarquin ? Case #: [id number] ? File Name: [id number] ? Catheterization Order Number: [id number] ? [facility] ? Final Report [place], [place] ? Patient Name: ? Shahnaz Santiago ? ID#: ?[id number] ? : ?1950 ? Procedure Date: ? January 06, 2014 ? Case #: ? 14- [id number] ? Room: ? 1 ? Case Physician: ? Jaron Jarquin, M.D. ? Start: ?14:40 ?Fellow: ? Jennifer Nguyen Chiaco, ?Admission: ??01/06/2014 ?M.D. ? Referring Physician: ??Jennifer Haro M.D. ? Procedures: ?* Coronary Angiography ?* Left Heart Catheterization ?* Coronary Flow [place] Measurement ?* Coronary Instantaneous Wave-Free Ratio ?* [...] Jaron Jarquin II, MD - 01/09/2014 [facility] Cardiac Catheterization/Intervention Report Patient Name: Shahnaz Santiago Procedure Date: 01/06/2014 A #: [id number] Primary Physician: Jaron Jarquin Case #: File Name: [id number] Catheterization Order Number: [id number] [facility] FinalReport [place], [place] Patient Name: Shahnaz Santiago ID#:[id number] :1950 Procedure Date: January 06, 2014 Case #: Room: 1 Case Physician: Jaron Jarquin M.D. Start: 14:40 Fellow: Jennifer Argueta, Admission:01/06/2014 Adriana Referring Physician: Jennifer Haro M.D. Procedures: * Coronary Angiography * Left Heart Catheterization * Coronary Flow [place] Measurement * Coronary Instantaneous Wave-Free Ratio * [...] damage. Diagnosis of acute, evolving or recent NC requires a typical rise and gradual fall [...] consensus document of the Joint Society of Cardiology/[place] College of Cardiology Committee for the redefinition of myocardial infarction. ??Journal of the [place] College of Cardiology 2000; 36: 959-969] Creatine [...] O RDERABLES Performing Organization Address [facility] de Phone Number MONICA PERALTA * Cardiac Enzymes (01/06/2014 11:30 AM EDT) Troponin-T Not Perf <=0.03 ng/mL [facility] BENITEZC[facility] Comment: Unable to quantitate due to sample hemolysis. ??Sample redraw suggested. Called Maximiliano, 01/06/14 12:30, blr 0.03 ng/mL: Represents the 99th percentile upper reference limit for normals. >0.03 ng/mL: Elevated cardiac troponin T level indicative of myocardial damage. Diagnosis of acute, evolving or recent NC requires a typical rise and gradual fall [...] consensus document of the Joint Society of Cardiology/[place] College of Cardiology Committee for the redefinition of myocardial infarction. ??Journal of the [place] College of Cardiology 2000; 36: 959-969] Creatine Kinase 132 0 - 200 unit/L MONICA PERALTA Blood specimen (specimen) 01/06/2014 11:30 AM EDT 01/06/2014 11:45 AM EDT Narrative Resulting Agency Comment Spec In Lab Kenia Bauman MD CHEMISTRY ORDERABLES Performing Organization Address [facility] Co de Phone Number MONICA [...] ORDERABLE S Performing Organization Address [facility] de Phone Number [facility] * LDL Cholesterol, Direct (01/06/2014 11:30 AM EDT) LDL Cholesterol, Direct 13 <=99 mg/dL [facility] Comment: The National Cholesterol Education Program (NCEP) has set the following guidelines for LDL Cholesterol: Reference range: ?? Optimal: ?<100 mg/dL ?? Near Optimal/Above Optimal: ?? 100-129 mg/dL ?? Borderline high: ?130-159 mg/dL ?? High: ? 160-189 mg/dL ?? Very high: ?>uh=440 mg/dL TATI 2001: 285(19):0990-8848 Blood specimen (specimen) 01/06/2014 11:30 AM EDT 01/06/2014 11:45 AM EDT Narrative Resulting Agency Comment Spec In Lab Kenia Bauman MD CHEMISTRY ORDERABLES Performing Organization Address [facility] de Phone Number [facility] * Echocardiogram Transthoracic(Leb) (01/06/2014 10:29 AM EDT) EF 56 [facility] SYSTEM Anatomical Region Laterality Modality Other 01/06/2014 Narrative 01/06/2014 10:41 AM EDT Procedure: ? Transthoracic Echocardiogram Patient: ? PAMELA Gordon ? (Age): 1950(63) Med Rec#: ?[id number] ? Sex: ?M ? Site Loc: ?[facility] ? Ht / Wt: ??185(cm)/92(kg) Pt. Loc: ? [facility] ?BSA: ?2.17 Study Date: ?01/06/2014 ? Pt. Type: Inpatient Tape: ? Referring: Kenia Bauman ([id number]) Referring: BRUCE Lathe Hand: Jodie Givens Diagnosis:CPT Code(s): ??Echo Full (12836), ??Spectral Doppler (26856), Color Doppler (66091), Indication(s): ??Tachycardia Rhythm: HR ?BP ?114/63 ?? [...] ? Mid-Inferior ?Normal ? Mid-Inferoseptal ?Normal ? [place]-Septal ? Normal ? [place]-Anterior ? Normal ? [place]-Lateral ?Normal ? [place]-Inferior ? Normal ? [place]-Tip ?Normal ? Chambers ?Value ?Units (Range) ? [...] 01/06/2014 10:41:12 Images reviewed and interpretation verified [facility] Cardiac Ultrasound Laboratory Procedure Note Warren Atkinson MD - 01/06/2014 Procedure: Transthoracic Echocardiogram Patient: PAMELA Gordon (Age): 1950(63) Med Rec#: [id number] Sex: M Site Loc: [facility] Ht / Wt: 185(cm)/92(kg) Pt. Loc: CCU BSA: 2.17 Study Date: 01/06/2014 Pt. Type: Inpatient Tape: Referring: Kenia Bauman ([id number]) Referring: BRUCE Lathe Hand: Jodie Givens Diagnosis:CPT Code(s): Echo Full (25458), Spectral Doppler (98912), Color Doppler (53937), Indication(s): Tachycardia Rhythm: HR BP 114/63 SUMMARY: [...] Normal Mid-Posterolateral Normal Mid-Inferior Normal Mid-Inferoseptal Normal [place]-Septal Normal [place]-Anterior Normal [place]-Lateral Normal [place]-Inferior Normal [place]-Tip Normal Chambers Value Units (Range) EF Bi-p [...] 01/06/2014 10:41:12 Images reviewed and interpretation verified [facility] Cardiac Ultrasound Laboratory Kenai Bauman MD ECHO ORDERABLES * EKG 12 Lead (01/06/2014 9:29 AM EDT) Ventricular rate 61 BPM MUSE SYSTEM Atrial Rate 61 BPM MUSE SYSTEM P-R Interval 210 ms MUSE SYSTEM QRS Duration 128 ms MUSE SYSTEM Q-T Interval 450 ms MUSE SYSTEM QTC Calculated (Bezet) 453 ms MUSE SYSTEM Calculated P [place] 36 degrees MUSE SYSTEM Calculated R [place] -51 degrees MUSE SYSTEM Calculated T [place] -62 degrees MUSE SYSTEM INTERPRETATION Sinus rhythm [...] * POCT Glucose (01/06/2014 8:28 AM EDT) [facility] Signature Glucose, POC 104 60 - 199 mg/dL MONICA GeodruidSEPIDEHSMSA CRANE ACQUISITION Comment: Supplemental ranges: <140 mg/dL before meals <180 mg/dL all other times of the day Blood specimen (specimen) 01/06/2014 8:28 AM EDT 01/06/2014 8:28 AM EDT Kenia Bauman MD POINT OF CARE TEST O RDERABLES Performing Organization Address [facility] Co de Phone Number oLyfe * XR chest routine PA & lateral [...] Bauman MD URINE ORDERABLES Performing Organization Address [facility] Co de Phone Number CERDELMAR MILLENNIUM * Sodium, urine, random (01/06/2014 3:06 AM EDT) Sodium, Urine 85 mmol/L STACYNER MILLENNIUM Urine specimen (specimen) 01/06/2014 3:06 AM EDT 01/06/2014 3:15 AM EDT Narrative Resulting Agency Comment Spec In Lab Kenia Bauman MD URINE ORDERABLES MONICA GeodruidENNIUM * (ABNORMAL) Urinalysis with microscopic (01/06/2014 3:06 [...] Urine Dipstick Hazy(A) Clear CERNER MILLENNIUM Specific [place] Urine Automated 1.019 1.002 - 1.030 CERNER [...] damage. Diagnosis of acute, evolving or recent NC requires a typical rise and gradual fall [...] consensus document of the Joint Society of Cardiology/[place] [employer] Committee for the redefinition of myocardial infarction. ??Journal of the [place] College [employer]iology 2000; 36: 959-969] Creatine [...] ORDERABLE S Performing Organization Address [facility]/ZIP Co de Phone Number MONICA PERALTA * (ABNORMAL) Magnesium (01/06/2014 2:50 AM EDT) Magnesium 0.67(L) 0.69 - 1.07 mmol/L [facility] Blood specimen (specimen) 01/06/2014 2:50 AM EDT 01/06/2014 2:58 AM EDT Narrative Resulting Agency Comment Spec In Lab Kenia Bauman MD CHEMISTRY ORDERABLES Performing Organization Address [facility] de Phone Number MONICA BENITEZIUM * (ABNORMAL) Lipid panel (fasting) (01/06/2014 2:50 AM EDT) Cholesterol, Total 55 <=199 mg/dL [facility] Comment: Recommendations of the NCEP Adult Treatment Panel for the following risk cutoff thresholds for the [place] population: Desirable: <200 mg/dL Borderline High: 200-239 mg/dL High: > or = 240 mg/dL Triglyceride 148 <=149 mg/dL [facility] Comment: Reference Range: Normal triglycerides: ??<150 mg/dL Borderline high: ??150-199 mg/dL High: ??200-499 mg/dL Very high: ??>yw=967 mg/dL TATI 2001; 285(19):3693-5164 HDL Cholesterol 26(L) >=40 mg/dL [facility] Comment: Reference range: ??Low HDL: ?? < 40 mg/dL ??Normal: ?40-60 mg/dL ??Desirable: > 60 mg/dL TATI 2001; 285(19):7889-0613 LDL Cholesterol -1 <=99 mg/dL [facility] Comment: Reference range: ?? Optimal: ?<100 mg/dL ?? Near Optimal/Above Optimal: ?? 100-129 mg/dL ?? Borderline high: ?130-159 mg/dL ?? High: ? 160-189 mg/dL ?? Very high: ?>gz=223 mg/dL TATI 2001: 285(19):5434-5862 Cholesterol/HDL Ratio 2.1 ratio CERNER MILLENNIUM Comment: A Cholesterol to HDL ratio below 4:1 is desirable. ??Studies suggest that increased CAD risk occurs at ratios above 5 for females and above 6 for men. ? [place] [employer] Association ??(http://www.americanheart.org) ? Yenny Int Med, 1994; 121:641 ? AM J Med, 1998; 105(1A):48S Blood specimen (specimen) 01/06/2014 2:50 AM EDT 01/06/2014 2:58 AM EDT Narrative Resulting Agency Comment Spec In Lab Kenia Bauman MD CHEMISTRY ORDERABLES [facility] * (ABNORMAL) Basic Metabolic Panel (non-fasting) (01/06/2014 2:50 AM EDT) [facility] Glucose 107 60 - 199 mg/dL CERNER MILLENNIUM Comment:Diabetes: >=200 mg/d L plus symptoms Blood Urea Nitrogen 31(H) 10 - 20 mg/dL CERNER MILLENNIUM Creatinine 1.41 0.80 - 1.50 mg/dL CERNER MILLENNIUM Comment: Please note that the pediatric reference intervals supplied above were not validated at [facility]. Results from pediatric patients should be interpreted [...] the following links into your internet browser. [email or web address] Blood specimen (specimen) 01/06/2014 2:50 AM EDT 01/06/2014 2:58 AM EDT Narrative Resulting Agency Comment Spec In Lab Kenia Bauman MD CHEMISTRY ORDERABLES Performing Organization Address [facility] Co de Phone Number [facility] * EKG 12 Lead (01/06/2014 2:01 AM EDT) Ventricular rate 69 BPM MUSE SYSTEM Atrial Rate 69 BPM MUSE SYSTEM P-R Interval 212 ms MUSE SYSTEM QRS Duration 126 ms MUSE SYSTEM Q-T Interval 416 ms MUSE SYSTEM QTC Calculated (Bezet) 445 ms MUSE SYSTEM Calculated P [place] 18 degrees MUSE SYSTEM Calculated R [place] -55 degrees MUSE SYSTEM Calculated T [place] -70 degrees MUSE SYSTEM INTERPRETATION Sinus rhythm [...] 0847 (Given - Provider: Ervin Fontaine, NAHUN) lidocaine (XYLOCAINE) 20 mg/mL (2 %) injection [...] to induce or maintain moderate sedation per [facility] Moderate Sedation Protocol, Not to exceed 50 mcg/dose, 250 mcg/hr, or 20 mcg/kg per case., EP (Intra-Procedure), Routine 1510 (Given - Provider: Yaron Don RN)1518 (Given - Provider: Yaron Don RN)1534 (Given - Provider: Yaron Don RN)1550 (Given - Provider: Yaron Don RN)1604 (Given - Provider: Yarno Don RN)1615 (Given - Provider: Yaron Don RN)1642 (Given - Provider: Yaron Don RN)1644 (Given - Provider: Yaron Don RN)1648 (Given - Provider: Yaron Don RN) midazolam (PF) (VERSED) 1 mg/mL injection 0.5-1 mg () 0.5-1 mg, Intravenous, EVERY 5 MIN PRN, Starting on Thu01/10/14 at 1444, Until Thu01/11/14 at 0043, Sleep, As needed to induce or maintain moderate sedation per [facility] Moderate Sedation Protocol, Not to exceed 1 [...] RN) documented in this encounter Care Teams Academic Tutor Relationship Specialty Start Date End Date Jennifer Haro MD PCP - General 01/07/12 01/30/14 documented as of this encounter
--- OUTSIDE RECORDS SUMMARY | 2024-04-19 15:32 | XMS_ITS | Encounter Summary ---
[facility] Organization [facility] [place] [address] Care Team Providers Care Scholastic Aptitude Test Grader Name Role Phone Jennifer Haro MD Primary Care Provider [phone] Encounter Details Date Type Department Care Team (Latest Contact Info) Description 05/13/2013 2:27 PM EST - 05/14/2013 2:18 PM EST Hospital Encounter [place] [address] Jennifer Curry MD [facility] [place] [address] Kit Self MD [facility] [place] [address] CAD (coronary artery disease); ASCVD (arteriosclerotic cardiovascular disease); 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 Return to work: One week Driving: No driving for 48 hours after catheterization. Follow up Appointments: PCP Call for appointment in 1-2 weeks. Rubber Press Operator You should be seen in 3-4 weeks for follow up. Follow up with Dr Nicolette maguire jun 03. Home oxygen therapy: N/A Arrangements for VNA/home care: none * Attachments The following attachments cannot be sent through Care Everywhere. * CHEST PAIN (ANGINA): AFTER YOUR VISIT (KITTITIAN) * CARDIAC REHABILITATION: AFTER YOUR VISIT (KITTITIAN) * PERCUTANEOUS CORONARY INTERVENTION: WHAT TO EXPECT AT HOME (KITTITIAN) documented in this encounter Medications at Time [...] mg by mouth nightly as needed. 06/14/2013 [place]ipa-3 Fatty Acids (FISH OIL) 500 mg Cap Take by mouth daily. 01/14/2016 lamotrigine (LAMICTAL) 100 mg tablet Take 200 mg by mouth daily. 09/01/2018 alprazolam (XANAX XR) 3 mg 24 hr tablet Take 3 mg by mouth nightly. 09/18/2020 [facility] cmb #[id number] (PROBIOTIC & ACIDOPHILUS) 300-250 million cell-mg Cap [...] VS documented in doc flow sheets from [id number]. * Shyanne Casillas RN - 05/13/2013 3:53 PM EST Pt arrived from cardiac cath recovery on stretcher at 1430. Alert and oriented,denies chest pain ordyspnea, right groin site clean and intact, + pedal pulse, mission coordinator shows normal sinus rhythm with frequent PVC's. [...] - 05/13/2013 1:17 PM EST Marquez Hendrix [id number] 05/13/2013 62 y.o. Admission History and Physical [...] anxiety bc it reminds him of prior [place] pain. At cath he was found to [...] and clopidogrel per protocol. Dagoberto Amaral MD Parcel Contractor Pager# [phone] 05/13/2013 * Raji Novak - 05/13/2013 10:50 [...] anxiety bc it reminds him of prior [place] pain. Filed Vitals: 05/13/13 1046 BP: 110/70 [...] 05/16/2013 11:07 PM ESTAssociated Order(s): SCAN DOC: CYLINDER MACHINE OPERATOR documented in this encounter Miscellaneous Notes [...] disease) Priority: High ?? Heart catheterization in [facility] in 2007 with placement of a stent in an unspecified vessel ?? Repeat heart catheterization in 2008 with placement of stents to both the LAD and circumflex ?? Followup heart catheterization in 2008 showing stable results in both vessels ?? Her current chest discomfort in a somewhat atypical pattern beginning fall ?? Nuclear stress test at [facility] in [place], [place] May 02, 2013 during which he developed left shoulder and arm discomfort during submaximal exercise on the treadmill and after which he was converted to a pharmacologic test; nuclear imaging showed ejection fraction of 45% with a partially reversible inferior defect ?? Cath [facility] 05/13/2013: 3.0 X 12 mm JON to [...] anxiety bc it reminds him of prior [place] pain. At cath he was found to [...] 10 mg by mouth nightly as needed. [place]-3 Fatty Acids (FISH OIL) 500 mg Cap Take by mouth daily. multivitamin capsule 1 capsule Take 1 capsule by mouth daily. LANCETS MISC by [facility].(Non-Drug; Combo Route) route. lamotrigine (LAMICTAL) 100 mg tablet 100 mg Take 100 mg by mouth daily. alprazolam (XANAX XR) 3 mg 24 hr tablet 3 mg Take 3 mg by mouth every morning. lactobac b #[id number] (PROBIOTIC & ACIDOPHILUS) 300-250 million cell-mg Cap [...] appointments: During 8am-5pm Thursday through Thursday call [phone] to speak with a nurse in the cardiology clinic All other times call [phone] and ask to speak to the photograph mounter precision aircraft structure assembler. Return to work: One week Driving: No driving for 48 hours after catheterization. Follow up Appointments: PCP Call for appointment in 1-2 weeks. Rubber Press Operator You should be seen in 3-4 weeks for follow up. Follow up with Dr Nicolette maguire jun 03. Home oxygen therapy: N/A Arrangements for VNA/home care: none General Instructions None Future Appointments and Orders Future Appointments: Provider: Department: Dept Phone: Center: 06/14/2013 9:40 AM Kit Self MD Cardiology [phone] [facility] Joint Appt Nurse One Cardiology Intake, NAHUN [facility] [phone] [facility] Future Orders Please Complete By [...] Information: Dr. Antoinette Amaral Section of Cardiology [facility] [phone] Discharge References/Attachments: Discharge References/Attachments None Signed: Baldemar Martínez DATE: 05/14/2013 documented in this encounter Plan of Treatment Upcoming Encounters Date Type Department Care Team (Late st Contact Info) Description 06/15/2024 10:00 AM EST Hospital Encounter Non-Invasive [place] [address] Arrived documented as of this encounter Procedures Procedure Name Priority Date/Time Associated Diagnosis Comments CYLINDER MACHINE OPERATOR SCAN 05/16/2013 11:07 PM EST POCT GLUCOSE Routine 05/14/2013 12:08 PM EST POCT GLUCOSE Routine 05/14/2013 7:57 AM EST EKG 12-LEAD Routine 05/14/2013 7:40 AM EST CAD (coronary artery disease) BMP W/FASTING GLUCOSE Routine 05/14/2013 3:30 AM EST DIFFERENTIAL, AUTOMATED Routine 05/14/2013 3:30 AM EST CARDIAC ENZYMES ([facility]) Routine 05/14/2013 3:30 AM EST CBC (WITH DIFF) Routine 05/14/2013 3:30 AM EST POCT GLUCOSE Routine 05/14/2013 3:10 AM EST POCT GLUCOSE Routine 05/13/2013 11:40 PM EST POCT GLUCOSE Routine 05/13/2013 10:14 PM EST POCT GLUCOSE Routine 05/13/2013 8:52 PM EST POCT GLUCOSE Routine 05/13/2013 3:55 PM EST EKG 12-LEAD Routine 05/13/2013 1:57 PM EST CAD (coronary artery disease) CARDIAC ENZYMES ([facility]) STAT 05/13/2013 1:00 PM EST POCT GLUCOSE Routine 05/13/2013 10:46 AM EST documented in this encounter Results * SCAN DOC: CYLINDER MACHINE OPERATOR (05/16/2013 11:07 PM EST) Anatomical Region Laterality Modality Other Narrative 05/16/2013 11:09 PM EST Procedure Note Provider, Scanning - 05/16/2013 11:07 PM EST Scanning Provider MEDIA MGR SCAN EXT O RDR/RSLT * (ABNORMAL) POCT Glucose (05/14/2013 12:08 PM EST) Glucose, POC 222(H) 60 - 199 mg/dL [facility] Comment: Supplemental ranges: <110 mg/dL before meals <200 mg/dL all other times of the day Blood specimen (specimen) 05/14/2013 12:08 PM EST 05/14/2013 12:08 PM EST Kit Self MD POINT OF CARE TEST O RDERABLES Performing Organization Address [facility] de Phone Number [facility] * POCT Glucose (05/14/2013 7:57 AM EST) Glucose, POC 85 60 - 199 mg/dL [facility] Comment: Supplemental ranges: <110 mg/dL before meals <200 mg/dL all other times of the day Blood specimen (specimen) 05/14/2013 7:57 AM EST 05/14/2013 7:57 AM EST Kit Self MD POINT OF CARE TEST O RDERABLES Performing Organization Address [facility] de Phone Number [facility] * EKG 12 Lead (05/14/2013 7:40 AM EST) Ventricular rate 72 BPM MUSE SYSTEM Atrial Rate 72 BPM MUSE SYSTEM P-R Interval 208 ms MUSE SYSTEM QRS Duration 122 ms MUSE SYSTEM Q-T Interval 416 ms MUSE SYSTEM QTC Calculated (Bezet) 455 ms MUSE SYSTEM Calculated P [place] 67 degrees MUSE SYSTEM Calculated R [place] -59 degrees MUSE SYSTEM Calculated T [place] -12 degrees MUSE SYSTEM INTERPRETATION Sinus rhythm [...] * Differential, Automated (05/14/2013 3:30 AM EST) Neutrophil % 37.4 34.0 - 71.0 % CERNER MILLENNIUM Neutrophil Absolute 2.21 1.50 - 6.30 x10(3)/mcL CERNER MILLENNIUM Lymph % 47.9 19.0 - 53.0 % CERNER MILLENNIUM Lymphocytes Abs 2.8 1.0 - 3.6 x10(3)/mcL CERNER MILLENNIUM Monocyte % 7.6 4.0 - 13.0 % CERNER MILLENNIUM Monocyte Abs 0.4 0.2 - 1.0 x10(3)/mcL CERNER MILLENNIUM Eos % 6.4 0.0 - 7.0 % CERNER [...] Immature Gran Absolute 0.01 0.00 - 0.05 x10(3)/mcL CERNER MILLENNIUM [...] of Diabetes Mellitus, Position Statement from the [place] Diabetes Association. ??Diabetes Care, Volume 33, Supplement 1, Apr 2009 Blood Urea Nitrogen 21(H) 10 - 20 mg/dL CERNER MILLENNIUM Creatinine 0.99 0.80 - 1.50 mg/dL CERNER MILLENNIUM Comment: Please note that the pediatric reference intervals supplied above were not validated at [facility]. Results from pediatric [...] 105 98 - 107 mmol/L CERNER MILLENNIUM Carbon Dioxide 23 22 - 31 mmol/L CERNER MILLENNIUM [...] Lab Jennifer Curry MD CHEMISTRY ORDERABLES [facility] [employer] * (ABNORMAL) Cardiac Enzymes (05/14/2013 3:30 AM EST) Troponin-T 0.05(H) <=0.03 ng/mL [facility] [employer] Comment: 0.03 ng/mL: Represents the 99th percentile upper reference limit for normals. >0.03 ng/mL: Elevated cardiac troponin T level indicative of myocardial damage. Diagnosis of acute, evolving or recent MO requires a typical rise and gradual fall [...] consensus document of the Joint Society of Cardiology/[place] College of Cardiology Committee for the redefinition of myocardial infarction. ??Journal of the [place] College of Cardiology 2000; 36: 959-969] Creatine Kinase 62 0 - 200 unit/L [facility] [employer] Blood specimen (specimen) 05/14/2013 3:30 AM EST 05/14/2013 3:32 AM EST Narrative Resulting Agency Comment Spec In Lab Jennifer Curry MD CHEMISTRY ORDERABLES Performing Organization Address [facility] Co de Phone Number [facility] PERAL[facility] * (ABNORMAL) CBC (with Diff) (05/14/2013 3:30 AM EST) White Blood Cell 5.9 4.0 - 10.0 x10(3)/mc L CERNER MILLENNIUM Red Blood Cell 4.24(L) 4.63 - 6.08 x10(6)/mc L CERNER MILLENNIUM Hemoglobin 12.2(L) 13.7 - 17.5 gm/dL CERNER MILLENNIUM Hematocrit 37.4(L) 40.0 - 51.0 % CERNER MILLENNIUM Mean Cell Volume 88.2 79.0 - 92.0 fL CERNER MILLENNIUM Mean Cell Hemoglobin 28.8 25.6 - 32.2 pg CERNER MILLENNIUM Mean Cell Hemoglobin Concentration 32.6 32.0 - 36.5 gm/dL CERNER MILLENNIUM Platelet 185 145 - 370 x10(3)/mc L CERNER MILLENNIUM RDW Standard Deviation 45.7 35.0 - 46.0 fL CERNER MILLENNIUM RDW coefficient of variation 14.2 10.9 - 14.4 % CERNER MILLENNIUM Mean Platelet Volume 9.6 9.0 - 12.0 fL CERNER MILLENNIUM Blood specimen (specimen) 05/14/2013 3:30 AM EST 05/14/2013 3:32 AM EST Narrative Resulting Agency Comment Spec In Lab Jennifer Curry MD HEMATOLOGY ORDERABLE S Performing Organization Address [facility] Co de Phone Number [facility]ICA PERALTA * POCT Glucose (05/14/2013 3:10 AM EST) Glucose, POC 87 60 - 199 mg/dL CERNER MILLENNIUM Comment: Supplemental ranges: <110 mg/dL before meals <200 mg/dL all other times of the day Blood specimen (specimen) 05/14/2013 3:10 AM EST 05/14/2013 3:10 AM EST Kit Self MD POINT OF CARE TEST O RDERABLES Performing Organization Address [facility] de Phone Number [facility] * POCT Glucose (05/13/2013 11:40 PM EST) Glucose, POC 141 60 - 199 mg/dL [facility] Comment: Supplemental ranges: <110 mg/dL before meals <200 mg/dL all other times of the day Blood specimen (specimen) 05/13/2013 11:40 PM EST 05/13/2013 11:40 PM EST Kit Self MD POINT OF CARE TEST O RDERABLES Performing Organization Address [facility] de Phone Number [facility] * (ABNORMAL) POCT Glucose (05/13/2013 10:14 PM EST) Glucose, POC 224(H) 60 - 199 mg/dL [facility] Comment: Supplemental ranges: <110 mg/dL before meals <200 mg/dL all other times of the day Blood specimen (specimen) 05/13/2013 10:14 PM EST 05/13/2013 10:14 PM EST Kit Self MD POINT OF CARE TEST O RDERABLES Performing Organization Address [facility] Phone Number [facility] * (ABNORMAL) POCT Glucose (05/13/2013 8:52 PM EST) Glucose, POC 318(H) 60 - 199 mg/dL [facility] Comment: Supplemental ranges: <110 mg/dL before meals <200 mg/dL all other times of the day Blood specimen (specimen) 05/13/2013 8:52 PM EST 05/13/2013 8:52 PM EST Kit Self MD POINT OF CARE TEST O RDERABLES Performing Organization Address [facility] Co de Phone Number [facility] * POCT Glucose (05/13/2013 3:55 PM EST) Glucose, POC 90 60 - 199 mg/dL [facility] Comment: Supplemental ranges: <110 mg/dL before meals <200 mg/dL all other times of the day Blood specimen (specimen) 05/13/2013 3:55 PM EST 05/13/2013 3:55 PM EST Kit Self MD POINT OF CARE TEST O RDERABLES Performing Organization Address [facility] de Phone Number [facility] * EKG 12 Lead (05/13/2013 1:57 PM EST) Pathologist [facility] Ventricular rate 59 BPM MUSE SYSTEM Atrial Rate 59 BPM MUSE SYSTEM P-R Interval 224 ms MUSE SYSTEM QRS Duration 132 ms MUSE SYSTEM Q-T Interval 438 ms MUSE SYSTEM QTC Calculated (Bezet) 433 ms MUSE SYSTEM Calculated P [place] 37 degrees MUSE SYSTEM Calculated R [place] -61 degrees MUSE SYSTEM Calculated T [place] -29 degrees MUSE SYSTEM INTERPRETATION Sinus bradycardia with 1st degree A-V block Left axis deviation Non-specific intra-ventricula r conduction block T wave abnormality, consider anterolateral ischemia Abnormal ECG Confirmed by MD Thomas Douglas ([id number]) on 05/14/2013 3:52:55 PM MUSE SYSTEM 05/13/2013 1:57 PM EST 05/14/2013 3:52 PM EST Jennifer Curry MD ECG ORDERABLES Performing Organization Address [facility] Phone Number MUSE SYSTEM * Cardiac Enzymes (05/13/2013 1:00 PM EST) [facility] Troponin-T <0.03 <=0.03 ng/mL [facility] Comment: 0.03 ng/mL: Represents the 99th percentile upper reference limit for normals. >0.03 ng/mL: Elevated cardiac troponin T level indicative of myocardial damage. Diagnosis of acute, evolving or recent MO requires a typical rise and gradual fall [...] consensus document of the Joint Society of Cardiology/[place] College of Cardiology Committee for the redefinition of myocardial infarction. ??Journal of the [place] College of Cardiology 2000; 36: 959-969] Creatine Kinase 52 0 - 200 unit/L [facility] EMMANU[facility] Blood specimen (specimen) 05/13/2013 1:00 PM EST 05/13/2013 1:19 PM EST Narrative Resulting Agency Comment Spec In Lab Kit Self MD CHEMISTRY ORDERABLES Performing Organization Address [facility]/ZIP Co de Phone Number [facility] * POCT Glucose (05/13/2013 10:46 AM EST) Glucose, POC 113 60 - 199 mg/dL [facility] Comment: Supplemental ranges: <110 mg/dL before meals <200 mg/dL all other times of the day Blood specimen (specimen) 05/13/2013 10:46 AM EST 05/13/2013 10:46 AM EST Kit Self MD POINT OF CARE TEST O RDERABLES Performing Organization Address [facility] Co de Phone Number MONICA PERALTA documented in this encounter Visit Diagnoses Diagnosis ASCVD (arteriosclerotic cardiovascular disease)- Primary Unspecified cardiovascular disease CAD (coronary artery disease) Coronary atherosclerosis of unspecified type of vessel, telida or graft ASCVD (arteriosclerotic cardiovascular disease) Unspecified cardiovascular disease 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 Given 05/14/2013 1:45 PM EST 1 tablet [...] Routine 0900 (Given - Provid er: Shyanne Casillas, NAHUN) clopidogrel (PLAVIX) tablet 75 mg 75 mg, Oral, DAILY, First dose on 05/14/13 at 0900, Until Discontinued, Routine 0900 (Given - Provid er: Shyanne Casillas RN) diaZEPam (VALIUM) tablet 5 mg (COMPLETED) 5 mg, Oral, ONCE, 1 dose, On Thu05/13/13 at 1045, Cath (Day of Procedure), Routine 1110 (Given - Provider: Mitali Kwon, NAHUN) diphenhydrAMINE (BENADRYL) capsule 25 mg (COMPLETED) 25 mg, Oral, ONCE, 1 dose, On Thu05/13/13 at 1045, Cath (Day of Procedure), Routine 1110 (Given - Provider: Mitali Kwon, NAHUN) glipizide (GLUCOTROL) CR tablet 5 mg (CANCELED) 5 mg, Oral, DAILY, First dose on Thu05/13/13 at 1500, Until Discontinued, Routine 1608 (Given - Provider: Ely Villalpando, NAHUN) 0900 (Given - Provider: Shyanne Casillas, NAHUN) hydrochlorothiazide (HYDRODIURIL) tablet 12.5 mg (CANCELED) 12.5 mg, Oral, DAILY, First dose on Thu05/13/13 at 1600, Until Discontinued, Routine 1600 (Not Given - Provider: Ely Villalpando, NAHUN - Reason: See comment - Comment: 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 LASTING FLOORWORKER) 0900 (Given - Provider: Shyanne Casillas RN) [...] See comment - Comment: 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 LASTING FLOORWORKER) 0900 (Given - Provider: Shyanne Casillas RN) lisinopril (PRINIVIL;ZESTRIL) tablet 10 mg (CANCELED) 10 mg, Oral, DAILY, First dose on Thu05/13/13 at 1600, Until Discontinued, Routine 1600 (Not Given - Provider: Ely Villalpando RN - Reason: See comment - Comment: taken scow captain) 0900 (Given - Provider: Shyanne Casillas RN) nadolol (CORGARD) tablet 20 mg (CANCELED) 20 mg, Oral, DAILY, First dose on Thu05/13/13 at 1500, Until Discontinued, Routine 1500 (Not Given - Provider: Ely Villalpando RN - Reason: See comment - Comment: took LASTING FLOORWORKER) 0900 (Given - Provider: Shyanne Casillas RN) [...] (Intra-Procedure), Routine 1305 (Given - Provider: Sravani R Lurdes, RN) fentaNYL 50mcg/mL injection (CANCELED) ONCE PRN, Starting on Thu05/13/13 at 1135, Until Thu05/13/13 at 1311, Pain, Intra-Operative (Intra-Procedure), Routine 1135 (Given - Provider: William Espinoza RN)1151 (Given - Provider: Sravani hCatman RN) fentaNYL 50mcg/mL injection (CANCELED) ONCE PRN, [...] EVERY 4 HOURS PRN, Pain, Starting on Thu05/13/13 at 1442, Until 05/14/13 at 1620, Maximum dose of acetaminophen is 4000 mg from all sources in 24 hours. 1705 (Given - Provider: Ely Villalpando, NAHUN)2103 (Given - Provider: Ely Villalpando, NAHUN) 0325 (Given - Provider: Jace Howard RN)0808 [...] Sleep, Routine 2222 (Given - Provider: Ely Villalpando, NAHUN) No Frequency Medication Order 05/12/2013 05/13/2013 05/14/2013 lidocaine HCl (URO-JET) 2 % gel (COMPLETED) 1 dose, Starting on Thu05/13/13 at 1324, Until Thu05/13/13 at 1330, JOSUE LOPEZ: cabinet override 1330 (Given - Provider: Ned Lopez RN) documented in this encounter Care Teams Scholastic Aptitude Test Grader Relationship Specialty Start Date End Date Jennifer Haro MD PCP - General 01/07/12 01/30/14 documented as of this encounter
--- OUTSIDE RECORDS SUMMARY | 2024-04-19 15:32 | XMS_ITS | Encounter Summary ---
[place] [address] Care Team Providers Care Mill Labor Supervisor Name Role Phone Dewayne Mcdermott MD Primary Care Provider [phone] Reason for Visit * Reason Onset Date Comments Hematuria 05/16/2013 Encounter Details Date Type Department Care Team ([facility] Contact Info) Description 05/16/2013 Telephone Cardiology at [address] [phone] Rosanna Morrow RN Hematuria Social History Tobacco [...] clear with time. Patient isrequesting records from [facility] .Forwarded daughter to speak with medical records. documented in this encounter Plan of Treatment Upcoming Encounters Date Type Department Care Team (Late Contact Info) Description 06/15/2024 10:00 AM EST Hospital Encounter Non-Invasive [place] [phone] Arrived documented as of this encounter Visit Diagnoses Not on filedocumented in this encounter Care Teams Mill Labor Supervisor Relationship Specialty Start Date End Date Dewayne Mcdermott MD PCP - General 01/07/12 01/30/14 documented as of this encounter
--- OUTSIDE RECORDS SUMMARY | 2024-04-19 15:33 | XMS_ITS | Encounter Summary ---
Author Organization [facility] Address [facility] [place] [address] Care Team Providers Care Medical Imaging Tech Name Role Phone Dewayne Mcdermott MD Primary Care Provider [phone] Reason for Visit * Reason Comments Coronary Artery Disease Encounter Details Date Type Department Care Team (Late st Contact Info) Description 02/08/2013 8:00 AM EDT Office Visit [address] [address] Mynor Will MD [facility] [place] [address] CAD (coronary artery disease) (Primary Dx) Social [...] AM EST Hospital Encounter Non-[place] [address] Arrived documented as of this encounter Visit Diagnoses Diagnosis CAD (coronary artery disease)- Primary Coronary atherosclerosis of unspecified type of vessel, [place] or graft documented in this encounter Care Teams Medical Imaging Tech Relationship Specialty Start Date End Date Dewayne Mcdermott MD PCP - General 01/07/12 01/30/14 documented as of this encounter
--- OUTSIDE RECORDS SUMMARY | 2024-04-19 15:33 | XMS_ITS | Encounter Summary ---
Author Organization [facility] [place] [address] Care Team Providers Care Client Technical Support Associate Name Role Phone Dewayne Mcdermott MD Primary Care Provider [phone] Reason for Visit * Reason Onset Date Comments Other 02/26/2012 no heartburn Encounter Details Date Type Department Care Team (Late st Contact Info) Description 02/26/2012 [place] [address] Baldemar Crockett APRN [facility] [address] [place] [address] Other (no heartburn) Social History Tobacco Use [...] AM EST Hospital Encounter Non-Invasive [place] [address] Arrived documented as of this encounter Visit Diagnoses Not on filedocumented in this encounter Care Teams Client Technical Support Associate Relationship Specialty Start Date End Date Dewayne Mcdermott MD PCP - General 01/07/12 01/30/14 documented as of this encounter
--- OUTSIDE RECORDS SUMMARY | 2024-04-19 15:33 | XMS_ITS | Encounter Summary ---
Author Organization [facility] Address [facility] [place] [address] Care Team Providers Care Fire Sprinkler Service Technician Name Role Phone Iggy Sevilla MD Primary Care Provider [phone] Reason for Visit * Reason Comments Coronary Artery Disease Encounter Details Date Type Department Care Team (Late st Contact Info) Description 01/06/2012 1:15 PM EDT Office Visit [address] [address] Mynor Will MD [facility] [place] [address] CAD (coronary artery disease) (Primary Dx) Social [...] AM EST Hospital Encounter Non-[place] [address] Arrived documented as of this encounter Visit Diagnoses Diagnosis CAD (coronary artery disease)- Primary Coronary atherosclerosis of unspecified type of vessel, iroquois or graft documented in this encounter Care Teams Fire Sprinkler Service Technician Relationship Specialty Start Date End Date Iggy Sevilla MD [address] [place] [address] [place] [address] PCP - General 10/22/10 01/06/12 documented as of this encounter
--- OUTSIDE RECORDS SUMMARY | 2024-04-19 15:33 | XMS_ITS | Encounter Summary ---
Author Organization [facility] Address [facility] [place] [address] Care Team Providers Care Employee Representative Name Role Phone Iggy Sevilla MD Primary Care Provider [phone] Encounter Details Date Type Department Care Team (Latest Contact Info) Description 12/17/2011 9:04 AM EDT - 12/17/2011 3:22 PM EDT Hospital En[place] [address] Kyra Vyas MD Discharge Disposition: Home Social History Tobacco Use [...] occurs, please contact your MD/ Please call [phone] before 5pm with problems, questions or concerns. After 5pm call [phone] and ask to speak with the administrative and program specialist field artillery operations man. Discharge instructions reviewed with patient who expresses understanding. * Patient Instructions* Kyra Vyas MD - 12/17/2011 10:04 AM EDT Please see Recommendations in the Provation procedure report which is documented in the procedural note in E-DH. * Attachments The following attachments cannot be sent through Care Everywhere. * UPPER GI ENDOSCOPY: WHAT TO EXPECT AT HOME (GREEK) documented in this encounter Medications at Time [...] Hospital Encounter [place] [address] Arrived documented as of this encounter Procedures [...] 12:19 PM EDT) Surgical Pathology Report ? [facility] ? Provider: ?? KYRA VYAS ? Pt. Name: ?? SHAHNAZ SANTIAGO ? Acc #: ?[id number] ?Pt. ? Col Date: ?? 12/17/2011 ? [...] ? XL ? 12/20/11 Verified by: ? Chikis Jameson MD ? Pathologist ? (Electronic Signature) ? The [...] ? C - Labeled/Fixative: Esophagus, formalin. ? [facility] ? Provider: ?? KYRA VYAS ? Pt. Name: ?? SHAHNAZ SANTIAGO ? Acc #: ?[id number] ?Pt. ? Col Date: ?? 12/17/2011 ? [...] irregular Z-line at 39 cm, ? [facility] 12/17/2011 12:1 9 PM EDT Kyra Vyas MD PATHOLOGY/CYTOLOGY O RDERABLES [facility] * Specimen to Pathology (surgical or derm) (12/17/2011 10:07 AM EDT) AP Specimen 12/17/2011 10:0 7 AM EDT 12/17/2011 10:07 AM EDT Narrative [facility] PERALTA - 12/17/2011 10:07 AM EDT Specimen requisition ordered. ??Separate Pathology report to follow Kyra Vyas MD PATHOLOGY/CYTOLOGY O [place] Performing Organization Address [facility] de Phone Number [facility] * Specimen to Pathology (surgical or derm) (12/17/2011 10:07 AM EDT) AP Specimen 12/17/2011 10:0 7 AM EDT 12/17/2011 10:07 AM EDT Narrative STACYDELMAR PERALTA - 12/17/2011 10:07 AM EDT Specimen requisition ordered. ??Separate Pathology report to follow Kyra Vyas MD PATHOLOGY/CYTOLOGY O [place] Performing Organization Address [facility] de Phone Number [facility] * Specimen to Pathology (surgical or derm) (12/17/2011 10:07 AM EDT) AP Specimen 12/17/2011 10:0 7 AM EDT 12/17/2011 10:07 AM EDT Narrative STACYDELMAR PERALTA - 12/17/2011 10:07 AM EDT Specimen requisition ordered. ??Separate Pathology report to follow Kyra Vyas MD PATHOLOGY/CYTOLOGY O [place] Performing Organization Address [facility] de Phone Number [facility] * POCT GLUCOSE LAB USE ONLY (12/17/2011 9:36 AM EDT) Glucose, POC 181 60 - 199 mg/dL [facility] Comment: Supplemental ranges: <110 mg/dL before meals <200 mg/dL all other times of the day Blood specimen (specimen) 12/17/2011 9:36 AM EDT 12/17/2011 9:36 AM EDT Narrative Authorizing Provider Result Angelique Vyas MD POINT OF CARE TEST O [place] [facility] * UPPER GI ENDOSCOPY (12/17/2011 9:24 AM EDT) Pathologist [facility] UPPER GI ENDOSCOPY [facility] Endoscopy Patient Name: Shahnaz Santiago ? Procedure Date: 12/17/2011 9:24 AM ? Date of : 1950 ? Age: 61 ? Order #: [id number] ? Procedure: ? Upper GI endoscopy Indications: ? Dyspepsia, Heartburn Providers: ? Kyra Vyas MD, Pavel Carreno RN, ? Loraine Stewart, Hydrometeorologist Referring MD: ?Dr. Mcdermott Requesting Provider: Baldemar [...] RN) documented in this encounter Care Teams Employee Representative Relationship Specialty Start Date End Date Iggy Sevilla MD [address] [place] [address] [place] [address] PCP - General 10/22/10 01/06/12 documented as of this encounter
--- OUTSIDE RECORDS SUMMARY | 2024-04-19 15:33 | XMS_ITS | Encounter Summary ---
Author Organization [facility] Address [facility] [place] [address] Care Team Providers Care Drug Abuse Resistance Education Officer Name Role Phone Dewayne Mcdermott MD Primary Care Provider [phone] Reason for Visit * Reason Onset Date Comments Other 02/25/2012 assess plan Encounter Details Date Type Department Care Team (Late st Contact Info) Description 02/25/2012 Telephone [place] [phone] Baldemar Crockett APRN [facility] [place] [address] Other (assess plan) Social History Tobacco Use [...] AM EST Hospital Encounter Non-Invasive [place] [address] Arrived documented as of this encounter Visit Diagnoses Not on filedocumented in this encounter Care Teams Drug Abuse Resistance Education Officer Relationship Specialty Start Date End Date Dewayne Mcdermott MD PCP - General 01/07/12 01/30/14 documented as of this encounter
--- OUTSIDE RECORDS SUMMARY | 2024-04-19 15:33 | XMS_ITS | Encounter Summary ---
Author Organization [facility] [place] [address] Care Team Providers Care Debridging Machine Operator Name Role Phone Iggy Sevilla MD Primary Care Provider [phone] Reason for Visit * Reason Comments GI Problem Encounter Details Date Type Department Care Team (Late st Contact Info) Description 11/17/2011 9:00 AM EDT Office [place] [phone] Baldemar Crockett APRN [facility] [place] [address] IBS (irritable bowel syndrome) (Primary Dx) Discharge [...] AM EDT Section of Gastroenterology and Hepatology [address] [place], [place] [id number] .Marquez Hendrix : 1950 Patient is here [...] resolves after emptying. Colonoscopy 2009, per pt, [facility], normal. No blood in stool. Mucus in stool, a different odor. Has not correlated sx with medications, foods, or activities. Does not awake with sx. Weight stable. No chronic nsaids. No food allergies. Imodium prn. Tried probiotics in yogurt, Activia, did not agree with you. He believes he had a CT while in [facility], it was negative for diverticulitis. Diet: [...] Hospital Encounter Non[place] [address] Arrived documented as of this encounter Procedures Procedure Name Priority Date/Time Associated Diagnosis Comments TISSUE TRANSGLUTAMINASE, IGA Routine 11/17/2011 10:24 AM EDT IBS (irritable bowel syndrome) documented in this encounter Results * Tissue transglutaminase, IgA (11/17/2011 10:24 AM EDT) TTG IgA Ab <4.0 <=3.9 u/ml [facility] Comment: Result Interpretation: Negative: ?<4 U/mL Weak Positive: ??4-10 U/mL Positive: ?>10 U/mL Blood specimen (specimen) 11/17/2011 10:24 AM EDT 11/17/2011 2:20 PM EDT Narrative Resulting Agency Comment Spec In Lab Juwan Skinner MD IMMUNOLOGY ORDERABLE S [facility] documented in this encounter Visit Diagnoses Diagnosis IBS (irritable bowel syndrome)- Primary Irritable bowel syndrome documented in this encounter Care Teams Debridging Machine Operator Relationship Specialty Start Date End Date Iggy Sevilla MD [address] [place] [address] [place] [address] PCP - General 10/22/10 01/06/12 documented as of this encounter
--- OUTSIDE RECORDS SUMMARY | 2024-04-19 15:33 | XMS_ITS | Encounter Summary ---
Author Organization [facility] [place] [address] Care Team Providers Care Odd Job Laborer Name Role Phone Iggy Sevilla MD Primary Care Provider [phone] Encounter Details Date Type Department Care Team (Late st Contact Info) Description 12/17/2011 10:30 AM EDT - 12/17/2011 11:30 AM EDT Surgery [place] [phone] Kyra Vyas MD EGD WITH BIOPSY (WRVU 2.39) Social History [...] occurs, please contact your MD/ Please call [phone] before 5pm with problems, questions or concerns. After 5pm call [phone] and ask to speak with the hospital staff pharmacist on site nurse. Discharge instructions reviewed with patient who expresses understanding. * Patient Instructions* Kyra Vyas MD - 12/17/2011 10:04 AM EDT Please see Recommendations in the Provation procedure report which is documented in the procedural note in E-DH. * Attachments The following attachments cannot be sent through Care Everywhere. * UPPER GI ENDOSCOPY: WHAT TO EXPECT AT HOME ([place]) documented in this encounter Medications at Time [...] AM EST Hospital Encounter [place] [address] Arrived documented as of this [...] 12:19 PM EDT) Surgical Pathology Report ? [facility] ? Provider: ?? KYRA VYAS ? Pt. Name: ?? ALEXANDRUYUANSHAHNAZ ? Acc #: ?[id number] ?Pt. ? Col Date: ?? 12/17/2011 ? [...] ? C - Labeled/Fixative: Esophagus, formalin. ? [facility] ? Provider: ?? KYRA VYAS ? Pt. Name: ?? PAMELASHAHNAZ ? Acc #: ?[id number] ?Pt. ? Col Date: ?? 12/17/2011 ? [...] Z-line at 39 cm, ? [facility] 12/17/2011 12:1 9 PM EDT Kyra Vyas MD PATHOLOGY/CYTOLOGY O RDERABLES Performing Organization Address City/State/[facility] [place] Phone Number [facility] * Specimen to Pathology (surgical or derm) (12/17/2011 10:07 AM EDT) AP Specimen 12/17/2011 10:0 7 AM EDT 12/17/2011 10:07 AM EDT Narrative [facility] PERALTA - 12/17/2011 10:07 AM EDT Specimen requisition ordered. ??Separate Pathology report to follow Kyra Vyas MD PATHOLOGY/CYTOLOGY O [place] Performing Organization Address [facility] de Phone Number [facility] * Specimen to Pathology (surgical or derm) (12/17/2011 10:07 AM EDT) AP Specimen 12/17/2011 10:0 7 AM EDT 12/17/2011 10:07 AM EDT Narrative [facility] - 12/17/2011 10:07 AM EDT Specimen requisition ordered. ??Separate Pathology report to follow Kyra Vyas MD PATHOLOGY/CYTOLOGY O [place] Performing Organization Address [facility] Phone Number [facility] * Specimen to Pathology (surgical or derm) (12/17/2011 10:07 AM EDT) AP Specimen 12/17/2011 10:0 7 AM EDT 12/17/2011 10:07 AM EDT Narrative [facility] PERALTA - 12/17/2011 10:07 AM EDT Specimen requisition ordered. ??Separate Pathology report to follow Kyra Vyas MD PATHOLOGY/CYTOLOGY O [place] Performing Organization Address [facility] de Phone Number [facility] * POCT GLUCOSE LAB USE ONLY (12/17/2011 9:36 AM EDT) Glucose, POC 181 60 - 199 mg/dL [facility] Comment: Supplemental ranges: <110 mg/dL before meals <200 mg/dL all other times of the day Blood specimen (specimen) 12/17/2011 9:36 AM EDT 12/17/2011 9:36 AM EDT Kyra Vyas MD POINT OF CARE TEST O RDMARY [facility] * UPPER GI ENDOSCOPY (12/17/2011 9:24 AM EDT) Pathologist [facility] UPPER GI ENDOSCOPY [facility] Endoscopy Patient Name: Shahnaz Hendrix ? Procedure Date: 12/17/2011 9:24 AM ? N: [id number] ? Date of : 1950 ? Age: 61 ? Order #: [id number] ? Procedure: ? Upper GI endoscopy Indications: ? Dyspepsia, Heartburn Providers: ? Kyra Vyas MD, Pavel Carreno RN, ? Loraine Stewart, Overlay Plastician Referring MD: ?Dr. Mcdermott Requesting Provider: Baldemar [...] EDT Iggy Sevilla MD [facility] Performing Organization Address City/State/[facility] Co de Phone Number [employer] documented in [...] RN) documented in this encounter Care Teams Odd Job Laborer Relationship Specialty Start Date End Date Iggy Sevilla MD [address] [place] [address] PCP - General 10/22/10 01/06/12 documented as of this encounter
--- OUTSIDE RECORDS SUMMARY | 2024-04-19 15:33 | XMS_ITS | Encounter Summary ---
Author Organization [facility] [place] [address] Care Team Providers Care Waterproofing Supervisor Name Role Phone Jennifer Haro MD Primary Care Provider [phone] Encounter Details Date Type Department Care Team (Late st Contact Info) Description 05/13/2013 10:55 AM EST - 05/13/2013 11:55 AM EST [place] [address] Jennifer Curry MD [facility] [place] [address] CARDIAC CATHETERIZATION Social History Tobacco Use Types [...] appointments: During 8am-5pm Thursday through Thursday call [phone] to speak with a nurse in the cardiology clinic All other times call [phone] and ask to speak to the beater worker helper general operations manager. Return to work: One week Driving: No driving for 48 hours after catheterization. Follow up Appointments: PCP Call for appointment in 1-2 weeks. Office Administrative Assistant You should be seen in 3-4 weeks for follow up. Follow up with Dr Nicoltete maguire jun 03. Home oxygen therapy: N/A Arrangements for VNA/home care: none * Attachments The following attachments cannot be sent through Care Everywhere. * CHEST PAIN (ANGINA): AFTER YOUR VISIT (MARSHALLESE) * CARDIAC REHABILITATION: AFTER YOUR VISIT (MARSHALLESE) * PERCUTANEOUS CORONARY INTERVENTION: WHAT TO EXPECT AT HOME (MARSHALLESE) documented in this encounter Medications at Time of Discharge Medication Sig Dispensed Refills Start Date End Date multivitamin capsule Take 1 capsule by mouth daily. LANCETS MISC by [facility].(Non-Drug; Combo Route) route. metformin (GLUCOPHAGE) 1,000 mg [...] mg by mouth nightly as needed. 06/14/2013 Revelo-3 Fatty Acids (FISH OIL) 500 mg Cap Take by mouth daily. 01/14/2016 lamotrigine (LAMICTAL) 100 mg tablet Take 200 mg by mouth daily. 09/01/2018 alprazolam (XANAX XR) 3 mg 24 hr tablet Take 3 mg by mouth nightly. 09/18/2020 [id number] (PROBIOTIC & ACIDOPHILUS) 300-250 million cell-mg Cap [...] VS documented in doc flow sheets from [id number]. * Shyanne Casillas RN - 05/13/2013 3:53 PM EST Pt arrived from cardiac cath recovery on stretcher at 1430. Alert and oriented,denies chest pain ordyspnea, right groin site clean and intact, + pedal pulse, color television console monitor shows normal sinus rhythm with frequent [...] - 05/13/2013 1:17 PM EST Marquez Hendrix [id number] 05/13/2013 62 y.o. Admission History and Physical [...] anxiety bc it [place] of [place] pain. At cath he was found to [...] and clopidogrel per protocol. Dagoberto Amaral MD [employer] Pager# [phone] 05/13/2013 * Raji Novak - 05/13/2013 10:50 [...] anxiety bc it [place] pain. Filed Vitals: 05/13/13 1046 BP: 110/70 [...] 05/16/2013 11:07 PM ESTAssociated Order(s): SCAN DOC: CITY SOLICITOR documented in this encounter Miscellaneous Notes * Miscellaneous - Provider, Scanning - 05/16/2013 11:07 PM EST * Miscellaneous - Provider, Scanning - 05/13/2013 2:23 PM EST * Discharge Summary - Melvinsolangestoneyabby Baldemar M - 05/13/2013 1:26 PM EST Inpatient Cardiology - Discharge Summary Patient Name: Marquez Hendrix Patient Age: 62 y.o. Birthdate: 1950 Admit date: 05/13/2013 Discharge date: 05/14/2013 Attending Physician: Kit Self MD Discharge Diagnoses (Hospital Problems) and Secondary Diagnoses (Chronic Problems): Active Hospital Problems Diagnosis ??? ASCVD (arteriosclerotic cardiovascular disease) Priority: High ?? Heart catheterization in [facility] in 2007 with placement of a stent in an unspecified vessel ?? Repeat heart catheterization in 2008 with placement of stents to both the LAD and circumflex ?? Followup heart catheterization in 2008 showing stable results in both vessels ?? Her current chest discomfort in a somewhat atypical pattern beginning fall ?? Nuclear stress test at [facility] in [place], [place] May 02, 2013 during which he developed left shoulder and arm discomfort during submaximal exercise on the treadmill and after which he was converted to a pharmacologic test; nuclear imaging showed ejection fraction of 45% with a partially reversible inferior defect ?? [place] [facility] [place]13[place]2013: 3.0 X 12 mm JON to [...] anxiety bc it [place]. At cath he was found to [...] 10 mg by mouth nightly as needed. Revelo-3 Fatty Acids (FISH OIL) 500 mg Cap Take by mouth daily. multivitamin capsule 1 capsule Take 1 capsule by mouth daily. LANCETS MISC by Misc.(Non-Drug; Combo Route) route. lamotrigine (LAMICTAL) 100 mg tablet 100 mg Take 100 mg by mouth daily. alprazolam (XANAX XR) 3 mg 24 hr tablet 3 mg Take 3 mg by mouth every morning. lactobac b #[id number] (PROBIOTIC & ACIDOPHILUS) 300-250 million cell-mg Cap [...] follow up appointments: During 8am-5pm Thursday through Jose G call [phone] to speak with a nurse in the cardiology clinic All other times call [phone] and ask to speak to the beater worker helper general operations manager. Return to work: One week Driving: No driving for 48 hours after catheterization. Follow up Appointments: PCP Call for appointment in 1-2 weeks. Office Administrative Assistant You should be seen in 3-4 weeks for follow up. Follow up with Dr Nicolette maguire jun 03. Home oxygen therapy: N/A Arrangements for VNA/home care: none General Instructions None Future Appointments and Orders Future Appointments: Provider: Department: Dept Phone: Center: 06/14/2013 9:40 AM Kit Self MD Cardiology [phone] [facility] Joint Appt Nurse One Cardiology NAHUN Corrales [phone] [facility] Future Orders Please Complete By [...] Dr. Antoinette Amaral Section of Cardiology [facility] [phone] Discharge References/Attachments: Discharge References/Attachments None Signed: Baldemar Martínez DATE: 05/14/2013 documented in this encounter Plan of Treatment Upcoming Encounters Date Type Department Care Team (Late st Contact Info) Description 06/15/2024 10:00 AM EST Hospital Encounter Non[place] [address] Arrived documented as of this encounter Procedures Procedure Name Priority Date/Time Associated Diagnosis Comments CITY SOLICITOR SCAN 05/16/2013 11:07 PM EST POCT GLUCOSE Routine 05/14/2013 12:08 PM EST POCT GLUCOSE Routine 05/14/2013 7:57 AM EST EKG 12-LEAD Routine 05/14/2013 7:40 AM EST CAD (coronary artery disease) BMP W/FASTING GLUCOSE Routine 05/14/2013 3:30 AM EST DIFFERENTIAL, AUTOMATED Routine 05/14/2013 3:30 AM EST CARDIAC ENZYMES ([facility]) Routine 05/14/2013 3:30 AM EST CBC (WITH DIFF) Routine 05/14/2013 3:30 AM EST POCT GLUCOSE Routine 05/14/2013 3:10 AM EST POCT GLUCOSE Routine 05/13/2013 11:40 PM EST POCT GLUCOSE Routine 05/13/2013 10:14 PM EST POCT GLUCOSE Routine 05/13/2013 8:52 PM EST POCT GLUCOSE Routine 05/13/2013 3:55 PM EST EKG 12-LEAD Routine 05/13/2013 1:57 PM EST CAD (coronary artery disease) CARDIAC ENZYMES ([facility]) STAT 05/13/2013 1:00 PM EST POCT GLUCOSE Routine 05/13/2013 10:46 AM EST documented in this encounter Results * SCAN DOC: CITY SOLICITOR (05/16/2013 11:07 PM EST) Anatomical Region Laterality Modality Other Narrative 05/16/2013 11:09 PM EST Procedure Note Provider, Scanning - 05/16/2013 11:07 PM EST Scanning Provider MEDIA MGR SCAN EXT O RDR/RSLT * (ABNORMAL) POCT Glucose (05/14/2013 12:08 PM EST) Glucose, POC 222(H) 60 - 199 mg/dL [facility] Comment: Supplemental ranges: <110 mg/dL before meals <200 mg/dL all other times of the day Blood specimen (specimen) 05/14/2013 12:08 PM EST 05/14/2013 12:08 PM EST Kit Self MD POINT OF CARE TEST O SAMPSON Performing Organization Address [facility] [place] de Phone Number [facility] * POCT Glucose (05/14/2013 7:57 AM EST) Glucose, POC 85 60 - 199 mg/dL [facility] Comment: Supplemental ranges: <110 mg/dL before meals <200 mg/dL all other times of the day Blood specimen (specimen) 05/14/2013 7:57 AM EST 05/14/2013 7:57 AM EST Kit Self MD POINT OF CARE TEST O SAM[place]ON Performing Organization Address [facility] Phone Number [facility] * EKG 12 Lead (05/14/2013 7:40 AM EST) Ventricular rate 72 BPM MUSE SYSTEM Atrial Rate 72 BPM MUSE SYSTEM P-R Interval 208 ms MUSE SYSTEM QRS Duration 122 ms MUSE SYSTEM Q-T Interval 416 ms MUSE SYSTEM QTC Calculated (Bezet) 455 ms MUSE SYSTEM Calculated P [place] 67 degrees MUSE SYSTEM Calculated R [place] -59 degrees MUSE SYSTEM Calculated T [place] -12 degrees MUSE SYSTEM INTERPRETATION Sinus rhythm [...] of Diabetes Mellitus, Position Statement from the [employer] Diabetes Association. ??Diabetes Care, Volume 33, Supplement 1, Apr 2009 Blood Urea Nitrogen 21(H) 10 - 20 mg/dL [facility] MILLENNIUM Creatinine 0.99 0.80 - 1.50 mg/dL [facility] MILLENNIUM Comment: Please note that the pediatric reference intervals supplied above were not validated at [facility]. Results from pediatric patients should be interpreted [...] Curry MD CHEMISTRY ORDERABLES Performing Organization Address [facility] de Phone Number [facility] * (ABNORMAL) Cardiac Enzymes (05/14/2013 3:30 AM EST) Troponin-T 0.05(H) <=0.03 ng/mL [facility] Comment: 0.03 ng/mL: Represents the 99th [...] consensus document of the Joint Society of Cardiology/Chinese College of Cardiology Committee for the redefinition of myocardial infarction. ??Journal of the Chinese College of Cardiology 2000; 36: 959-969] Creatine Kinase 62 0 - 200 unit/L [facility] Blood specimen (specimen) 05/14/2013 3:30 AM EST 05/14/2013 3:32 AM EST Narrative Resulting Agency Comment Spec In Lab Jennifer Curry MD CHEMISTRY ORDERABLES Performing Organization Address [facility] [place] [facility] de Phone Number MONICA PERALTA * (ABNORMAL) CBC (with Diff) (05/14/2013 3:30 AM EST) White Blood Cell 5.9 4.0 - 10.0 x10(3)/mc L [facility] Red Blood Cell 4.24(L) 4.63 - 6.08 x10(6)/mc L [facility] MILLENNIUM Hemoglobin 12.2(L) 13.7 - 17.5 gm/dL [facility] Hematocrit 37.4(L) 40.0 - 51.0 % [facility] MILLENNIUM Mean Cell Volume 88.2 79.0 - 92.0 fL [facility] MILLENNIUM Mean Cell Hemoglobin 28.8 25.6 - 32.2 pg [facility] MILLENNIUM Mean Cell Hemoglobin Concentration 32.6 32.0 - 36.5 gm/dL [facility] Platelet 185 145 - 370 x10(3)/mc L [facility] RDW Standard Deviation 45.7 35.0 - 46.0 fL [facility] RDW coefficient of variation 14.2 10.9 - 14.4 % [facility] MILLENNI[facility] Mean Platelet Volume 9.6 9.0 - 12.0 fL [facility] Blood specimen (specimen) 05/14/2013 3:30 AM EST 05/14/2013 3:32 AM EST Narrative Resulting Agency Comment Spec In Lab Jennifer Curry MD HEMATOLOGY ORDERABLE S Performing Organization Address [facility] Co de Phone Number [facility] * POCT Glucose (05/14/2013 3:10 AM EST) Glucose, POC 87 60 - 199 mg/dL [facility] Comment: Supplemental ranges: <110 mg/dL before meals <200 mg/dL all other times of the day Blood specimen (specimen) 05/14/2013 3:10 AM EST 05/14/2013 3:10 AM EST Kit Self MD POINT OF CARE TEST O RDERABLES Performing Organization Address [facility] Co de Phone Number [facility] * POCT Glucose (05/13/2013 11:40 PM EST) Glucose, POC 141 60 - 199 mg/dL [facility] Comment: Supplemental ranges: <110 mg/dL before meals <200 mg/dL all other times of the day Blood specimen (specimen) 05/13/2013 11:40 PM EST 05/13/2013 11:40 PM EST Kit Self MD POINT OF CARE TEST O SAM[place]ON Performing Organization Address [facility] [place] [facility] de Phone Number [facility] * (ABNORMAL) POCT Glucose (05/13/2013 10:14 PM EST) Glucose, POC 224(H) 60 - 199 mg/dL [facility] Comment: Supplemental ranges: <110 mg/dL before meals <200 mg/dL all other times of the day Blood specimen (specimen) 05/13/2013 10:14 PM EST 05/13/2013 10:14 PM EST Kit Self MD POINT OF CARE TEST O [place]ON Performing Organization Address [facility] [place] de Phone Number [facility] * (ABNORMAL) POCT Glucose (05/13/2013 8:52 PM EST) Glucose, POC 318(H) 60 - 199 mg/dL [facility] Comment: Supplemental ranges: <110 mg/dL before meals <200 mg/dL all other times of the day Blood specimen (specimen) 05/13/2013 8:52 PM EST 05/13/2013 8:52 PM EST Kit Self MD POINT OF CARE TEST O SAM[place]ON Performing Organization Address [facility] [place] [facility] de Phone Number [facility] * POCT Glucose (05/13/2013 3:55 PM EST) Glucose, POC 90 60 - 199 mg/dL [facility] Comment: Supplemental ranges: <110 mg/dL before meals <200 mg/dL all other times of the day Blood specimen (specimen) 05/13/2013 3:55 PM EST 05/13/2013 3:55 PM EST Kit Self MD POINT OF CARE TEST O RDERABLES Performing Organization Address [facility] Co de Phone Number [facility] * EKG 12 Lead (05/13/2013 1:57 PM EST) [facility] Ventricular rate 59 BPM MUSE SYSTEM Atrial Rate 59 BPM MUSE SYSTEM P-R Interval 224 ms MUSE SYSTEM QRS Duration 132 ms MUSE SYSTEM Q-T Interval 438 ms MUSE SYSTEM QTC Calculated (Bezet) 433 ms MUSE SYSTEM Calculated P [place]ron[place] 37 degrees MUSE SYSTEM Calculated R [place] -61 degrees MUSE SYSTEM Calculated T [place] -29 degrees MUSE SYSTEM INTERPRETATION Sinus bradycardia with 1st degree A-V block Left axis deviation Non-specific intra-ventricula r conduction block T wave abnormality, consider anterolateral ischemia Abnormal ECG Confirmed by MD William, Navid ([id number]) on 05/14/2013 3:52:55 PM MUSE SYSTEM 05/13/2013 1:57 PM EST 05/14/2013 3:52 PM EST Jennifer Curry MD ECG ORDERABLES Performing Organization Address [facility] de Phone Number MUSE SYSTEM * Cardiac Enzymes (05/13/2013 1:00 PM EST) [facility] Troponin-T <0.03 <=0.03 ng/mL [facility] Comment: 0.03 ng/mL: Represents the [...] consensus document of the Joint Society of Cardiology/Chinese College of Cardiology Committee for the redefinition of myocardial infarction. ??Journal of the Chinese College of Cardiology 2000; 36: 959-969] Creatine Kinase 52 0 - 200 unit/L [facility] Blood specimen (specimen) 05/13/2013 1:00 PM EST 05/13/2013 1:19 PM EST Narrative Resulting Agency Comment Spec In Lab Kit Self MD CHEMISTRY ORDERABLES Performing Organization Address [facility] Co de Phone Number [facility] * POCT Glucose (05/13/2013 10:46 AM EST) Glucose, POC 113 60 - 199 mg/dL [facility] Comment: Supplemental ranges: <110 mg/dL before meals <200 mg/dL all other times of the day Blood specimen (specimen) 05/13/2013 10:46 AM EST 05/13/2013 10:46 AM EST Kit Self MD POINT OF CARE TEST O RDERABLES Performing Organization Address [facility] [place] [facility] de Phone Number MONICA PERALTA documented in this encounter Visit Diagnoses Diagnosis ASCVD (arteriosclerotic cardiovascular disease)- Primary Unspecified cardiovascular disease CAD (coronary artery disease) Coronary atherosclerosis of unspecified type of vessel, [place] or graft Atherosclerotic heart disease of [place] coronary artery with unstable angina pectoris Coronary atherosclerosis of [place] coronary artery ASCVD (arteriosclerotic cardiovascular disease) Unspecified cardiovascular disease CAD (coronary artery disease) Coronary atherosclerosis of unspecified type of vessel, [place] or graft Atherosclerotic heart disease of [place] coronary artery with unstable angina pectoris Coronary atherosclerosis of [place] coronary artery documented in this encounter Administered [...] See comment - Comment: 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 SHIFT SUPERVISOR FILM PROCESSING) 0900 (Given - Provider: Shyanne Casillas RN) [...] See comment - Comment: 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 SHIFT SUPERVISOR [employer]M PROCESSING) 0900 (Given - Provider: Shyanne Casillas RN) lisinopril (PRINIVIL;ZESTRIL) tablet 10 mg (CANCELED) 10 mg, Oral, DAILY, First dose on Thu05/13/13 at 1600, Until Discontinued, Routine 1600 (Not Given - Provider: Ely Villalpando RN - Reason: See comment - Comment: taken [employer]) 0900 (Given - Provider: Shyanne Casillas RN) nadolol (CORGARD) tablet 20 mg (CANCELED) 20 mg, Oral, DAILY, First dose on Thu05/13/13 at 1500, Until Discontinued, Routine 1500 (Not Given - Provider: Ely Villalpando RN - Reason: See comment - Comment: took SHIFT SUPERVISOR FILM PROCESSING) 0900 (Given - Provider: Shyanne S Coutermarsh, RN) nortriptyline (PAMELOR) capsule 50 mg (CANCELED) [...] 24 hours. 1705 (Given - Provider: Ely Villalpando RN)[id number] [...] RN) documented in this encounter Care Teams Waterproofing Supervisor Relationship Specialty Start Date End Date Jennifer Haro MD PCP - General 01/07/12 01/30/14 documented as of this encounter
--- OUTSIDE RECORDS SUMMARY | 2024-04-19 15:33 | XMS_ITS | Encounter Summary ---
Author Organization [facility] [place] [address] Care Team Providers Care Apron Trimmer Name Role Phone Unknown Primary Care Provider Unavailabl e Reason for Visit * Reason Comments Coronary Artery Disease Encounter Details Date Type Department Care Team (Late st Contact Info) Description 09/24/2010 2:30 PM EDT Office Visit [address] [address] Mynor Will MD [facility] [place] [address] CAD (coronary artery disease) (Primary Dx) Social [...] Will - 09/24/2010 2:32 PM EDT Scanned [facility] att documented in this encounter Plan of Treatment Upcoming Encounters Date Type Department Care Team (Late st Contact Info) Description 06/15/2024 10:00 AM EST Hospital Encounter Non-Invasive [place] [address] Arrived documented as of this encounter Visit Diagnoses Diagnosis CAD (coronary artery disease)- Primary Coronary atherosclerosis of unspecified type of vessel, [place] or graft documented in this encounter Care Teams Apron Trimmer Relationship Specialty Start Date End Date Unknown None PCP - General 09/24/10 10/21/10 documented as of this encounter
--- OUTSIDE RECORDS SUMMARY | 2024-04-19 15:33 | XMS_ITS | Encounter Summary ---
Author Organization [facility] [place] [address] Care Team Providers Care V Belt Inspector Name Role Phone Iggy Sevilla MD Primary Care Provider [phone] Encounter Details Date Type Department Care Team (Late st Contact Info) Description 11/17/2011 Telephone [place] [address] Peyton Cantu RN Social History [...] for omeprazole written this AM brought to courier. Call to pt to confirm pharmacy name and location. Call to pharmacy to call in prescription. documented in this encounter Plan of Treatment Upcoming Encounters Date Type Department Care Team (Late st Contact Info) Description 06/15/2024 10:00 AM EST Hospital Encounter Non-Invasive [place] [address] Arrived documented as of this encounter Visit Diagnoses Not on filedocumented in this encounter Care Teams V Belt Inspector Relationship Specialty Start Date End Date Iggy Sevilla MD [address] [place] [address] [place] [id number] PCP - General 10/22/10 01/06/12 documented as of this encounter
--- OUTSIDE RECORDS SUMMARY | 2024-04-19 15:33 | XMS_ITS | Encounter Summary ---
Author Organization [facility] Address [facility] [place] [address] Care Team Providers Care Resp Therapist Name Role Phone Dewayne Mcdermott MD Primary Care Provider [phone] Reason for Visit * Reason Comments Coronary Artery Disease Encounter Details Date Type Department Care Team (Latest Contact Info) Description 05/10/2013 9:10 AM EST Office Visit Cardiology at [address] [address] Kit Self MD [facility] [place] [address] CAD (coronary artery disease) (Primary Dx); ASCVD (arteriosclerotic cardiovascular disease); Atherosclerotic heart disease of [place] coronary artery with unstable angina pectoris; T2DM [...] from the original note were not included. [facility] JAYA Cao [address] CARDIOLOGY OUTPATIENT CONSULTATION [facility] Marquez Ethanluis [id number] 05/10/2013 REFERRING PROVIDER: Dewayne Mcdermott CHIEF COMPLAINT: Chief Complaint Patient presents with ??? Coronary Artery Disease PROBLEM LIST Patient Active Problem List Diagnosis ??? T2DM (type 2 diabetes mellitus) ??? Esophageal reflux ??? IBS (irritable bowel syndrome) ??? ASCVD (arteriosclerotic cardiovascular disease) ?? Heart catheterization in [facility] in 2007 with placement of a stent in an unspecified vessel ?? Repeat heart catheterization in 2008 with placement of stents to both the LAD and circumflex ?? Followup heart catheterization in 2008 showing stable results in both vessels ?? Her current chest discomfort in a somewhat atypical pattern beginning fall ?? Nuclear stress test at [facility] in [place], [place] May 02, 2013 during which he [...] mg by mouth nightly as needed. ??? [place]-3 Fatty Acids (FISH OIL) 500 mg Cap Take by mouth daily. ??? multivitamin capsule Take 1 capsule by mouth daily. ??? LANCETS MISC by Misc.(Non-Drug; Combo Route) route. ??? lamotrigine (LAMICTAL) 100 mg tablet Take 100 mg by mouth daily. ??? alprazolam (XANAX XR) 3 mg 24 hr tablet Take 3 mg by mouth every morning. ? ? lactobac cmb #1-hxb-[id number] (PROBIOTIC & ACIDOPHILUS) 300-250 million cell- mg [...] He developed anginal symptoms while living in [place], [place] in 2007. He apparently proceeded to [...] problems. 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 He spent some time in the [employer]. He currently lives in [facility] and is . He is a current [...] possible PCI is tentatively scheduled for Thursday morning of this week with a 10 AM arrival time Thank you for requesting this consultation. For questions, please feel free to contact me via any of the following mechanisms: Email: [email or web address] documented in this encounter Procedure Notes * Provider, Scanning - 05/13/2013 1:29 PM ESTAssociated Order(s): CARDIAC CATHETERIZATION documented in this encounter Plan of Treatment Upcoming Encounters Date Type Department Care Team (Late st Contact Info) Description 06/15/2024 10:00 AM EST Hospital Encounter [place] [address] Arrived documented as of this encounter Procedures Procedure Name Priority Date/Time Associated Diagnosis Comments CARDIAC CATHETERIZATION Routine 05/13/2013 1:12 PM EST CAD (coronary artery disease) ASCVD (arteriosclerotic cardiovascular disease) Atherosclerotic heart disease of [place] coronary artery with unstable angina pectoris DIFFERENTIAL, AUTOMATED Routine 05/10/2013 10:41 AM EST PROTHROMBIN TIME Routine 05/10/2013 10:4 1 AM EST CAD (coronary artery disease) ASCVD (arteriosclerotic cardiovascular disease) Atherosclerotic heart disease of [place] coronary artery with unstable angina pectoris CBC (WITH DIFF) Routine 05/10/2013 10:41 AM EST CAD (coronary artery disease) ASCVD (arteriosclerotic cardiovascular disease) Atherosclerotic heart disease of [place] coronary artery with unstable angina pectoris BASIC METABOLIC PANEL Routine 05/10/2013 10:41 AM EST CAD (coronary artery disease) ASCVD (arteriosclerotic cardiovascular disease) Atherosclerotic heart disease of [place] coronary artery with unstable angina pectoris EKG 12-LEAD Routine 05/10/2013 9:20 AM EST CAD (coronary artery disease) documented in this encounter Results * Cardiac Catheterization (05/13/2013 1:12 PM EST) Anatomical Region Laterality Modality Other Narrative 05/13/2013 3:35 PM EST Procedure Note Provider, Scanning - 05/13/2013 1:29 PM EST Kit Self MD CARDIAC CATH ORDERAB LES * (ABNORMAL) Differential, Automated (05/10/2013 10:41 AM EST) Neutrophil % 36.8 34.0 - 71.0 % CERNER MILLENNIUM Neutrophil Absolute 3.61 1.50 - 6.30 x10(3)/mc L CERNER MILLENNIUM Lymph % 49.1 19.0 - 53.0 % CERNER MILLENNIUM Lymphocytes Abs 4.8(H) 1.0 - 3.6 x10(3)/mc L CERNER MILLENNIUM Monocyte % 5.9 4.0 - 13.0 % CERNER MILLENNIUM Monocyte Abs 0.6 0.2 - 1.0 x10(3)/mc L CERNER MILLENNIUM Eos % 7.5(H) 0.0 - 7.0 % CERNER MILLENNIUM Eosinophils Abs 0.7(H) 0.0 - 0.5 x10(3)/mc L CERNER MILLENNIUM Basophil % 0.5 0.0 - [...] Kit Self MD HEMATOLOGY ORDERABLE S MONICA PERALTA * Prothrombin Time (05/10/2013 10:41 AM EST) Prothrombin Time 13.5 12.0 - 15.0 sec CERNER MILLENNIUM Comment: [facility] Transfusion Committee Guidelines: INR less than 2.0, PTT less than OR equal to 43.5 seconds, or Fibrinogen greater than or equal to 100 mg/dl indicate adequate procoagulant activity for hemostasis in patients without underlying bleeding disorders. International Normalization Ratio 1.0 0.9 - 1.1 CERNER MILLENNIUM Blood specimen (specimen) 05/10/2013 10:41 AM EST 05/10/2013 10:53 AM EST Narrative Resulting Agency Comment Spec In Lab Kit Self MD HEMATOLOGY ORDERABLE S [facility] * Basic Metabolic Panel (non-fasting) (05/10/2013 10:41 AM EST) Glucose 122 60 - 199 mg/dL CERNER MILLENNIUM Comment:Diabetes: >=200 mg/d L plus symptoms Blood Urea Nitrogen 20 10 - 20 mg/dL CERNER MILLENNIUM Creatinine 1.16 0.80 - 1.50 mg/dL CERNER MILLENNIUM Comment: Please note that the pediatric reference intervals supplied above were not validated at [facility]. Results from pediatric patients should be interpreted [...] 10.2 8.5 - 10.5 mg/dL CERNER MILLENNIUM Est [...] Self MD CHEMISTRY ORDERABLES Performing Organization Address [facility] Co de Phone Number MONICA PERALTA * CBC (with Diff) (05/10/2013 10:41 AM EST) White Blood Cell 9.8 4.0 - 10.0 x10(3)/mcL CERNER MILLENNIUM Red Blood Cell 5.08 4.63 - 6.08 x10(6)/mcL CERNER MILLENNIUM Hemoglobin 14.9 13.7 - 17.5 gm/dL CERNER MILLENNIUM Hematocrit 43.7 40.0 - 51.0 % CERNER MILLENNIUM Mean Cell Volume 86.0 79.0 - 92.0 fL CERNER MILLENNIUM Mean Cell Hemoglobin 29.3 25.6 - 32.2 pg CERNER MILLENNIUM Mean Cell Hemoglobin Concentration 34.1 32.0 - 36.5 gm/dL CERNER MILLENNIUM Platelet 257 145 - 370 x10(3)/mcL CERNER MILLENNIUM RDW Standard Deviation 43.5 35.0 - 46.0 fL CERNER MILLENNIUM RDW coefficient of variation 14.0 10.9 - 14.4 % CERNER MILLENNIUM Mean Platelet Volume 9.5 9.0 - 12.0 fL CERNER MILLENNIUM Blood specimen (specimen) 05/10/2013 10:41 AM EST 05/10/2013 10:53 AM EST Narrative Resulting Agency Comment Spec In Lab Kit Self MD HEMATOLOGY ORDERABLE S Performing Organization Address [facility] Co de Phone Number MONICA PERALTA * EKG 12 Lead (05/10/2013 9:20 AM EST) Ventricular rate 73 BPM MUSE SYSTEM Atrial Rate 73 BPM MUSE SYSTEM P-R Interval 202 ms MUSE SYSTEM QRS Duration 134 ms MUSE SYSTEM Q-T Interval 440 ms MUSE SYSTEM QTC Calculated (Bezet) 484 ms MUSE SYSTEM Calculated P [place] 43 degrees MUSE SYSTEM Calculated R [place] -62 degrees MUSE SYSTEM Calculated T [place] 14 degrees MUSE SYSTEM INTERPRETATION Sinus rhythm with Premature ventricular complexes Left axis deviation Non-specific intra-ventricular conduction block Poor R-wave progression Abnormal ECG No previous ECGs available I personally reviewed the tracing and edited the fellows interpretation Confirmed by fellow MD Pavel, Alex De La Rosa ([id number]) on 05/10/2013 11:12:18 AM Confirmed by MD Thomas Douglas ([id number]) on 05/10/2013 3:33:20 PM MUSE SYSTEM 05/10/2013 9:20 AM EST 05/10/2013 3:33 PM EST Kit Self MD ECG ORDERABLES MUSE SYSTEM documented in this encounter Visit Diagnoses Diagnosis CAD (coronary artery disease)- Primary Coronary atherosclerosis of unspecified type of vessel, [place] or graft ASCVD (arteriosclerotic cardiovascular disease) Unspecified cardiovascular disease Atherosclerotic heart disease of [place] coronary artery with unstable angina pectoris Coronary atherosclerosis of [place] coronary artery T2DM (type 2 diabetes mellitus) Type II or unspecified type diabetes mellitus without mention of complication, not stated as uncontrolled ASCVD (arteriosclerotic cardiovascular disease) Unspecified cardiovascular disease CAD (coronary artery disease) Coronary atherosclerosis of unspecified type of vessel, [place] or graft Atherosclerotic heart disease of [place] coronary artery with unstable angina pectoris Coronary atherosclerosis of [place] coronary artery documented in this encounter Care Teams Resp Therapist Relationship Specialty Start Date End Date Dewayne Mcdermott MD PCP - General 01/07/12 01/30/14 documented as of this encounter
[2024-04-19 20:11] LABS: COMMENT (LAB VIEW ONLY) 231.81 mg/dL; Microalb ug/mg Crea 87.1 ug/mg Cr
== END 2024-04-19 15:19 | disposition home or self-care (01) ==
LOC: NCHCN 15:18
PROVIDERS: PCP Student in an Organized Health Care Education/Training Program; Visit Provider Student in an Organized Health Care Education/Training Program
DX: E11.9 Type 2 diabetes mellitus without complications (principal)
CPT/HCPCS: 82043; 82570

== ENCOUNTER 2024-05-09 16:08 | Emergency (ER) | payer MEDICARE, SELFPAY ==
[2024-05-09] VITALS (51 sets, daily range): BP systolic 103–179; BP diastolic 57–109; PULSE 53–100; RESP 12–24; TEMP 36.4; O2SAT 93–100
--- NOTE | 2024-05-09 16:00 | RT.EKG_ITS ---
APPROVED REPORT Exam: Resting ECG Reason for Exam: Defibrillator went off Patient Location: E HR:90 bpm ECG Measurements Heart Rate 90 [place]IS TX [id number] P [id number] QRSd 127 QRS -75 QT 394 T 76 QTc 482 Conclusion Atrial fibrillation. 90 no stemi
--- OUTSIDE RECORDS SUMMARY | 2024-05-09 16:13 | XMS_ITS | Encounter Summary ---
Author Organization [facility] Address [address] [place] [address] Care Team Providers Care Pipe Supervisor Name Role Phone Dewayen Carrington MD Primary Care Provider [phone] Encounter Details Date Type Department Care Team (Late st Contact Info) Description 12/26/2022 Lab Requisition [facility] Pathology & Laboratory Medicine - [facility] [address] [place], [place] [address] Outr Resulting Lab, Provider Social History Tobacco [...] 57.7 55.8 - 66.1 % 12/29/2022 13:12 [facility] Albumin g/dL 3.8 3.6 - 5.2 g/dL 12/29/2022 13:12 [facility] Alpha-1 % 4.5 2.9 - 4.9 % 12/29/2022 13:12 [facility] Alpha-1 g/dL 0.30 0.15 - 0.40 g/dL 12/29/2022 13:12 [facility] Alpha-2 % 16.9(H) 7.1 - 11.8 % 12/29/2022 13:12 [facility] Alpha-2 g/dL 1.10(H) 0.50 - 1.00 g/dL 12/29/2022 13:12 [facility] Beta % 11.8 8.4 - 13.1 % 12/29/2022 13:12 [facility] Beta g/dL 0.80 0.60 - 1.20 g/dL 12/29/2022 13:12 [facility] Gamma % 9.1(L) 11.1 - 18.8 % 12/29/2022 13:12 [facility] Gamma g/dL 0.60 0.60 - 1.60 g/dL 12/29/2022 13:12 [facility] SPEP Comment No apparent monoclonal protein seen on serum electrophoresis 12/29/2022 13:12 [facility] Comment:See scanned/suppleme ntary report. Total Protein 6.6 6.3 - 8.2 g/dL 12/29/2022 13:12 [facility] Blood VENOUS BLOOD / Unknown 12/26/2022 15:53 EDT 12/26/2022 22:00 EDT us Provider Outr Resulting Lab CHEMISTRY & BLOOD GA S ORDERABLES Final Result Performing Organization Address [facility] Co de Phone Number [facility] [address] [place] [address] * PROTEIN, TOTAL (12/26/2022 15:53 EDT) Blood VENOUS BLOOD / Unknown 12/26/2022 15:53 EDT 12/26/2022 22:00 EDT us Provider Outr Resulting Lab CHEMISTRY & BLOOD GA S ORDERABLES Final Result Performing Organization Address [facility] Co de Phone Number [facility] [address] [place] [address] documented in this encounter Visit Diagnoses Not on filedocumented in this encounter Care Teams Pipe Supervisor Relationship Specialty Start Date End Date Dewayne Carrington MD [address] [place] [address] PCP - General 12/20/18 documented as of this encounter
--- OUTSIDE RECORDS SUMMARY | 2024-05-09 16:13 | XMS_ITS | Encounter Summary ---
Author Organization [facility] Address [address] [place] [address] Care Team Providers Care Head Of Business Development Name Role Phone Dewayne Carrington MD Primary Care Provider [phone] Encounter Details Date Type Department Care Team (Late st Contact Info) Description 05/21/2019 Lab Requisition [facility] Pathology & Laboratory Medicine - [facility] [address] [place] [address] Unknown, Provider, Social History Tobacco Use Types [...] Surface Ag Negative Negative 05/23/2019 9:35 EST [facility] Blood VENOUS BLOOD / Unknown 05/20/2019 14:15 EST 05/22/2019 15:55 EST us Provider Unknown CHEMISTRY & BLOOD GAS ORDERA BLES Final Result [facility] [address] [place] [address] documented in this encounter Visit Diagnoses Not on filedocumented in this encounter Care Teams Head Of Business Development Relationship Specialty Start Date End Date Dewayne Carrington MD [facility] [place] [address] [address] PCP - General 12/20/18 documented as of this encounter
--- OUTSIDE RECORDS SUMMARY | 2024-05-09 16:13 | XMS_ITS | Referral Summary ---
Author Organization [facility] Address [address] [place] [address] Care Team Providers Care Adult Basic Education Manager Name Role Phone Dewayne Carrington MD Primary Care Provider [phone] Allergies No known active allergies Medications aspirin [...] 04/11/2011 Major depressive disorder 04/10/2011 Diabetes mellitus ([facility]-CMS) 03/24/2011 Social History Tobacco Use Types [...] Advance Directives For more information, please contact: [phone] Documents on File Type Date Recorded Patient Impregnating Tank Operator Expl anation Advance Directive 05/15/2011 4:39 DPOA 04/30 * Full Code (Latest Code Status on File) Date Activated Date Inactivated Comments 03/22/2011 18:42 05/05/2011 15:10 Care Teams Adult Basic Education Manager Relationship Specialty Start Date End Date Dewayne Carrington [place] [address] PCP - General 12/20/18
--- OUTSIDE RECORDS SUMMARY | 2024-05-09 16:13 | XMS_ITS | Encounter Summary ---
Author Organization [facility] Address [address] [place] [address] Care Team Providers Care Woodworker Helper Name Role Phone Iggy Sevilla MD Primary Care Provider [phone] Encounter Details Date Type Department Care Team (Late st Contact Info) Description 12/17/2018 Results Only [facility] [phone] Brandi Hartman MD [address] [place] [phone] Social History Tobacco Use Types Packs/Day [...] ? MARQUEZ HENDRIX ? Accession #: ? [id number] ? : ? 1950 (Age: 68) ??M [...] (ASCP) 12/17/2018 7:07 PM End of Report [facility] 12/17/2018 16:3 3 EDT 12/17/2018 16:33 EDT us Brandi Hartman MD PATHOLOGY ORDERABLES Final Resul t [facility] [address] [place] [address] documented in this encounter Visit Diagnoses Not on filedocumented in this encounter Care Teams Woodworker Helper Relationship Specialty Start Date End Date Iggy Sevilla MD [address] [place] [id number] PCP - General 03/24/11 12/19/18 documented as of this encounter
--- OUTSIDE RECORDS SUMMARY | 2024-05-09 16:13 | XMS_ITS | Encounter Summary ---
Author Organization [facility] Address [address] [place] [address] Care Team Providers Care Roast Master Name Role Phone Dewayne Carrington MD Primary Care Provider [phone] Encounter Details Date Type Department Care Team (Late st Contact Info) Description 05/12/2019 Lab Requisition [facility] Pathology & Laboratory Medicine - [facility] [address] [place] [address] Unknown, Provider, Social History Tobacco Use Types [...] 6.3 - 8.2 g/dL 05/13/2019 14:16 EST [facility] Albumin % 57.9 55.8 - 66.1 % 05/13/2019 14:16 [facility] Alpha-1 % 4.3 2.9 - 4.9 % 05/13/2019 14:16 [facility] Alpha-2 % 15.9(H) 7.1 - 11.8 % 05/13/2019 14:16 [facility] Beta % 12.6 8.4 - 13.1 % 05/13/2019 14:16 [facility] Gamma % 9.3(L) 11.1 - 18.8 % 05/13/2019 14:16 [facility] SPEP Comment No apparent monoclonal protein seen on serum electrophoresis 05/13/2019 14:16 [facility] Comment:See scanned/suppleme ntary report. Blood VENOUS BLOOD / Unknown 05/12/2019 10:00 EST 05/12/2019 21:33 EST us Provider Unknown CHEMISTRY & BLOOD GAS ORDERA BLES Final Result Performing Organization Address City/State/[facility] Co de Phone Number [facility] [address] [place] [address] documented in this encounter Visit Diagnoses Not on filedocumented in this encounter Care Teams Roast Master Relationship Specialty Start Date End Date Dewayne Carrington MD [address] [place] [address] PCP - General 12/20/18 documented as of this encounter
--- OUTSIDE RECORDS SUMMARY | 2024-05-09 16:13 | XMS_ITS | Encounter Summary ---
Author Organization [facility] Address [address] [place] [address] Care Team Providers Care Machining Associate Name Role Phone Iggy Sevilla MD Primary Care Provider [phone] Encounter Details Date Type Department Care Team (Latest Contact Info) Description 12/17/2018 14:48 EDT - 12/17/2018 23:59 EDT Hospital Encounter [address] [address] Unknown, Provider, MD Discharge Disposition: Home or [...] Code Departure Means Destination Home or Self Custodial documented in this encounter Plan of Treatment Not on file documented as of this encounter Visit Diagnoses Not on filedocumented in this encounter Care Teams Machining Associate Relationship Specialty Start Date End Date Iggy Sevilla MD [address] [place] [address] PCP - General 03/24/11 12/19/18 documented as of this encounter
--- OUTSIDE RECORDS SUMMARY | 2024-05-09 16:13 | XMS_ITS | Encounter Summary ---
Author Organization [facility] Address [address] [place] [address] Care Team Providers Care Outboard System Operator Name Role Phone Dewayne Carrington MD Primary Care Provider [phone] Encounter Details Date Type Department Care Team (Late st Contact Info) Description 12/20/2020 Lab Requisition [facility] Pathology & Laboratory Medicine - [facility] [address] [place], [place] [address] Outr Resulting Lab, Provider Social History Tobacco [...] 1.7 - 2.8 mg/dL 12/20/2020 16:50 EDT [facility] Blood VENOUS BLOOD / Unknown 12/19/2020 14:45 EDT 12/20/2020 16:30 EDT us Provider Outr Resulting Lab CHEMISTRY & BLOOD GA S ORDERABLES Final Result [facility] [address] [place] [address] documented in this encounter Visit Diagnoses Not on filedocumented in this encounter Care Teams Outboard System Operator Relationship Specialty Start Date End Date Dewayne Carrington MD [address] [place] [address] PCP - General 12/20/18 documented as of this encounter
--- OUTSIDE RECORDS SUMMARY | 2024-05-09 16:13 | XMS_ITS | Clinical Summary ---
Author Organization [facility] Address [address] [place] [address] Care Team Providers Care Electrophysiology Tech Name Role Phone Dewayne Carrington MD Primary Care Provider [phone] Allergies No known active allergies Medications aspirin [...] 04/11/2011 Major depressive disorder 04/10/2011 Diabetes mellitus ([facility]) 03/24/2011 Social History Tobacco Use Types Packs/Day [...] Advance Directives For more information, please contact: [phone] Documents on File Type Date Recorded Patient Company Pilot Expl anation Advance Directive 05/15/2011 4:39 DPOA 04/30 * Full Code (Latest Code Status on File) Date Activated Date Inactivated Comments 03/22/2011 18:42 05/05/2011 15:10 Care Teams Electrophysiology Tech Relationship Specialty Start Date End Date Dewayne Carrington MD [address] [place] [address] PCP - General 12/20/18
--- OUTSIDE RECORDS SUMMARY | 2024-05-09 16:15 | XMS_ITS | Encounter Summary ---
Author Organization [facility] Address [facility] [place] [address] Care Team Providers Care Tapping Machine Operator Name Role Phone Dewayne Carrington MD Primary Care Provider [phone] Encounter Details Date Type Department Care Team (Latest Contact Info) Description 12/26/2021 - 12/26/2021 11:59 PM EDT Hospital Encounter Non-[place]vasive [place] [address] Ta Negron MD [facility] [place] [address] V-tach Discharge Disposition: Home Social History Tobacco [...] AM EST Hospital Encounter Non-Invasive [place] [address] Arrived documented as of this encounter Procedures Procedure Name Priority Date/Time Associated Diagnosis Comments ICD INTERROGATION 3 MONTH Routine 12/27/2021 12:40 PM EDT V-tach documented in this encounter Results * ICD INTERROGATION 3 MONTH (12/27/2021 12:40 PM EDT) Anatomical Region Laterality Modality Other Narrative 12/27/2021 1:23 PM EDT Cardiac Device Remote Monitoring Report Summary Remoov Latitude Device: ICD Model: INCEPTA Battery: 'beginning [...] tachycardia documented in this encounter Care Teams Tapping Machine Operator Relationship Specialty Start Date End Date Dewayne Carrington MD PCP - General 09/02/16 documented as of this encounter
--- OUTSIDE RECORDS SUMMARY | 2024-05-09 16:15 | XMS_ITS | Encounter Summary ---
Author Organization [facility] Address [address] [place] [address] Care Team Providers Care Systems Support Specialist Name Role Phone Iggy Sevilla MD Primary Care Provider [phone] Reason for Visit * Reason Onset Date Comments Procedure 04/22/2011 Encounter Details Date Type Department Care Team (Late st Contact Info) Description 04/22/2011 Pre-Procedure Orders Encounter [facility] Psychiatric Consultation Program - [address] [address] Juwan Sawant MD [address] [place] [address] [address] [place] [id number] Social History Tobacco Use Types Packs/Day Years [...] in this encounter Care Teams Systems Support Specialist Relationship Specialty Start Date End Date Iggy Sevilla MD [address] [place] [phone] PCP - General 03/24/11 12/19/18 documented as of this encounter
--- OUTSIDE RECORDS SUMMARY | 2024-05-09 16:15 | XMS_ITS | Encounter Summary ---
[place] [address] Care Team Providers Care Laboratory Associate Name Role Phone Dewayne Carrington MD Primary Care Provider [phone] Encounter Details Date Type Department Care Team (Latest Contact Info) Description 06/26/2022 10:00 AM EST - 06/26/2022 11:59 PM EST Hospital Encounter Non-[place] [address] Discharge Disposition: Home Social History Tobacco Use [...] EST Hospital Encounter Non-Invasive Cardiology [place] [address] Arrived documented as of this encounter Procedures [...] filedocumented in this encounter Care Teams Laboratory Associate Relationship Specialty Start Date End Date Dewayne Carrington MD PCP - General 09/02/16 documented as of this encounter
--- OUTSIDE RECORDS SUMMARY | 2024-05-09 16:15 | XMS_ITS | Encounter Summary ---
Author [place] [address] Care Team Providers Care Hot Air Furnace Installer And Repairer Name Role Phone Dewayne Carrington MD Primary Care Provider [phone] Encounter Details Date Type Department Care Team (Latest Contact Info) Description 09/24/2022 10:00 AM EDT - 09/24/2022 11:59 PM EDT Hospital Encounter Non-[place] [address] Discharge Disposition: Home Social History Tobacco Use [...] AM EST Hospital Encounter Non-[place] [address] Arrived documented as of this encounter Procedures [...] on filedocumented in this encounter Care Teams Hot Air Furnace Installer And Repairer Relationship Specialty Start Date End Date Dewayne Carrington MD PCP - General 09/02/16 documented as of this encounter
--- OUTSIDE RECORDS SUMMARY | 2024-05-09 16:15 | XMS_ITS | Encounter Summary ---
Author Organization [facility] Address [address] [place] [address] Care Team Providers Care Manufacturing Support Engineer Name Role Phone Iggy Sevilla MD Primary Care Provider [phone] Reason for Visit * Reason Onset Date Comments Procedure 04/10/2011 Encounter Details Date Type Department Care Team ([facility] st Contact Info) Description 04/10/2011 Pre-Procedure Orders Encounter [facility] Psychiatric Consultation Program - [address] [address] Juwan Sawant MD [address] [place] [address] [address] [place] [address] Social History Tobacco Use Types Packs/Day Years [...] on filedocumented in this encounter Care Teams Manufacturing Support Engineer Relationship Specialty Start Date End Date Iggy Sevilla MD [address] [place] [address] PCP - General 03/24/11 12/19/18 documented as of this encounter
--- OUTSIDE RECORDS SUMMARY | 2024-05-09 16:15 | XMS_ITS | Encounter Summary ---
[place] [address] Care Team Providers Care Radio Station Operator Name Role Phone Dewayne Carrington MD Primary Care Provider Encounter Details Date Type Department Care Team (Latest Contact Info) Description 03/17/2024 10:00 AM EST - 03/17/2024 11:59 PM EST Hospital Encounter [place] [address] Discharge Disposition: Home Social History Tobacco Use [...] EST Hospital Encounter Non-Invasive [place] [address] Arrived documented as of this encounter Visit Diagnoses Not on filedocumented in this encounter Care Teams Radio Station Operator Relationship Specialty Start Date End Date Dewayne Carrington MD PCP - General 09/02/16 documented as of this encounter
--- OUTSIDE RECORDS SUMMARY | 2024-05-09 16:15 | XMS_ITS | Encounter Summary ---
Author Organization [facility] Address [facility] [place] [address] Care Team Providers Care Seo Team Lead Name Role Phone Dewayne Carrington MD Primary Care Provider [phone] Encounter Details Date Type Department Care Team ([facility] st Contact Info) Description 03/27/2023 [place] [phone] Maren Hernandez MD [facility] [place] [address] Social History Tobacco Use Types Packs/Day Years [...] Dino Fitzpatrick Patient Location: HPI: 72 [address]/ [place] Sci AICD for history of [place], Afib [...] not personally reviewed EKGs. Maren Hernandez MD Bedspread Cutter Hand documented in this encounter Plan of Treatment Upcoming Encounters Date Type Department Care Team (Late st Contact Info) Description 06/15/2024 10:00 AM EST Hospital Encounter [place] [address] Arrived documented as of this encounter Visit Diagnoses Not on filedocumented in this encounter Care Teams Seo Team Lead Relationship Specialty Start Date End Date Dewayne Carrington MD PCP - General 09/02/16 documented as of this encounter
--- OUTSIDE RECORDS SUMMARY | 2024-05-09 16:15 | XMS_ITS | Encounter Summary ---
Author Organization [facility] Address [address] [place] [address] Care Team Providers Care Justice Court Judge Name Role Phone Iggy Sevilla MD Primary Care Provider [phone] Reason for Visit * Reason Onset Date Comments Procedure 04/29/2011 Encounter Details Date Type Department Care Team (Late st Contact Info) Description 04/29/2011 Pre-Procedure Orders Encounter [facility] Psychiatric Consultation Program - [address] [address] Juwan Sawant MD [address] [place] [address] [address] [place] [phone] Social History Tobacco Use Types Packs/Day Years [...] on filedocumented in this encounter Care Teams Justice Court Judge Relationship Specialty Start Date End Date Iggy Sevilla MD [address] [place] [address] PCP - General 03/24/11 12/19/18 documented as of this encounter
--- OUTSIDE RECORDS SUMMARY | 2024-05-09 16:15 | XMS_ITS | Encounter Summary ---
[place] [address] Care Team Providers Care Crusher And Blender Operator Name Role Phone Dewayne Carrington MD Primary Care Provider [phone] Encounter Details Date Type Department Care Team (Latest Contact Info) Description 03/23/2023 10:00 AM EST - 03/23/2023 11:59 PM EST Hospital Encounter [place] [address] Discharge Disposition: Home Social History Tobacco Use [...] EST Hospital Encounter [place]-Invasive [place] [address] Arrived documented as of this encounter Procedures [...] on filedocumented in this encounter Care Teams Crusher And Blender Operator Relationship Specialty Start Date End Date Dewayne Carrington MD PCP - General 09/02/16 documented as of this encounter
--- OUTSIDE RECORDS SUMMARY | 2024-05-09 16:15 | XMS_ITS | Encounter Summary ---
Author Organization [facility] Address [facility] [place] [address] Care Team Providers Care Maintenance Mechanic Supervisor Name Role Phone Dewayne Carrington MD Primary Care Provider [phone] Reason for Visit * Consultation (Routine) - Closed Specialty Diagnoses / Procedures Referred By Conteddie t Referred To Contact Gastroenterology Diagnoses Steatohepatitis Dewayne Carrington MD [address] [place] [address] [facility] [address] [place] [address] Referral ID Status Reason Start Date Expiration Date V isits Requested Visits Authorized [id number] Closed Consult, Test & Treat PCP Updated and/or Approved 02/22/2022 02/22/2023 6 6 Encounter Details Date Type Department Care Team (Late st Contact Info) Description 03/18/2022 2:30 PM EST Office Visit [place] [address] Elsie Cristobal MD [facility] [address] Fatty liver Social History Tobacco Use Types [...] Vitals: 03/18/22 1439 BP: 115/62 BP Location ([facility]): Right arm Patient Position: Sitting BP Cuff [...] Cristobal MD Section of Gastroenterology & Hepatology [address] [place], [place] [id number] Cc: Dewayne Carrington MD documented in this encounter Procedure Notes * Elsie Cristobal MD - 03/18/2022 2:30 PM ESTAssociated Order(s): FIBROSCAN Procedure(s): FIBROSCAN Pre-Procedure Diagnose(s): Fatty liver [facility] Liver Fibrosis Assessment Report Indication: Fatty liver Performed by: Elsie Cristobal MD Procedure: Vibration Controlled Transient Elastography (VCTE) or Fibroscan [place] Protocol: Patient's identity, procedure and site were [...] AM EST Hospital Encounter Non-[place]vasive [place] [address] Arrived documented as of this encounter Procedures Procedure Name Priority Date/Time Associated Diagnosis Comments [id number] Routine 03/18/2022 2:30 PM EST Fatty liver documented in this encounter Results * [id number] (03/18/2022 2:30 PM EST) Narrative Elsie Cristobal MD - 03/18/2022 2:30 PM EST Elsie Cristobal MD ? 03/18/2022 ??8:34 PM [facility] Liver Fibrosis Assessment Report Indication: ??Fatty liver Performed by: ??Elsie Cristobal MD Procedure: Vibration Controlled Transient Elastography (VCTE) or Fibroscan [place] Protocol: Patient's identity, procedure and site were [...] disease documented in this encounter Care Teams Maintenance Mechanic Supervisor Relationship Specialty Start Date End Date Dewayne Carrington MD PCP - General 09/02/16 documented as of this encounter
--- OUTSIDE RECORDS SUMMARY | 2024-05-09 16:15 | XMS_ITS | Clinical Summary ---
Author Organization [facility] Address [facility] [place] [address] Care Team Providers Care Clinical Business Manager Name Role Phone Dewayne Carrington MD Primary Care Provider [phone] Allergies Active Allergy Reactions Criticality Noted Date [...] 80 (documented on ICD interrogation 07/18/14) ?? [id number] score = 3 ?? Patient initially reluctant to be anticoagulated as recommended Atrial pacemaker lead displacement 04/10/2014 Overview (04/10/2014): New finding at office follow up 04/10/2014 Plan lead reposition/replacement ICD (implantable cardioverter-defibrillator), luis enrique maier, in situ 01/11/2014 Overview (04/18/2014): New Atrial electrode: Guidant Dextrus Model# 4126-53 cm Serial# [id number] ?? Bipolar, steroid-tipped, active-fixation IS-1 lead ?? [...] at 10 V: No Old Ventricular electrode: Chocorua [employer] Mittie Model# 0292 Serial# [id number] ?? Bipolar, steroid-tipped, active-fixation DF-4 lead ?? [...] Atrial electrode: Guidant Dextrus Model# 4136 Serial# [id number] ?? Bipolar, steroid-tipped, active-fixation IS-1 lead ?? Access: Axillary vein ?? Location Removed 04/17/2014 ?? Implanted: 01/10/2014 Pulse generator: My Single Point Incepta Model# E162 Serial# [id number] ?? DDDR ICD ?? Location: Subcutaneous The [...] 10/17/2010 Overview (11/06/2016): ?? Heart catheterization in [facility] in 2007 with placement of a stent in an unspecified vessel ?? Repeat heart catheterization in 2008 with placement of stents to both the LAD and circumflex ?? Followup heart catheterization in 2008 showing stable results in both vessels ?? Recurrent chest discomfort in a somewhat atypical pattern beginning fall ?? Nuclear stress test at [facility] [place] [facility] in [place], [place] May 02, 2013 during which he developed left shoulder and arm discomfort during submaximal exercise on the treadmill and after which he was converted to a pharmacologic test; nuclear imaging showed ejection fraction of 45% with a partially reversible inferior defect ?? Cath [facility] 05/13/2013: normal left main, mild diffuse disease throughout the LAD with an 80% mid stenosis representing a restenosis lesion, mild diffuse disease in the proximal obtuse marginal branch, and mild diffuse disease throughout the right coronary artery; status post 3.0 X 12 mm JON to 80% mid-LAD lesion (in-stent restenosis) ?? Heart catheterization [facility] January 06, 2014 showing normal left main, hazy 50% mid LAD stenosis, mild diffuse disease throughout the circumflex, and moderate diffuse disease in the proximal RCA with a totally occluded distal RCA with brisk flow via bridging collaterals; fractional flow reserve on the LAD 0.85 ?? Nuclear stress test [facility] August 2016 reportedly showing a small [...] PM EST Hospital Encounter [place] [address] Discharge Disposition: Home from Last [...] AM EST Hospital Encounter [place] [address] Arrived Health Maintenance Due Date Last Done Comments CT Colonography 1949 Colonoscopy 1949 Colorectal Cancer Screening 1949 FIT DNA 1949 FIT 1949 Sigmoidoscopy (10 year) with FIT yearly 1949 Sigmoidoscopy 1949 DM Hemoglobin A1c 1959 DM Opthalmology Exam 1959 DM Urine Microalbumin yearly 1959 Pneumoccocal Vaccine: 50+ (1 of 2 - PCV) 1968 Tetanus/Diphtheria/Pertussis [...] Completed 03/19/2021 Medical Devices Implanted Type Area Piano Refinisher Device Identifier Shelf Expiration Date Model / Serial / Lot Bsx : E162 : [id number] Implanted:2013 (Quantity not on file) Defibrillator Chocorua Scientific E162 / [id number] / Description:Chocorua Scientifi c : E162 [address] : [id number] When MRI is ordered @ [facility], Defibrillator E162 and Leads 0292 and 4126 combined together do not constitute an ImageReady MRI-Conditional System. The patient may not have a MRI with this system in place.BENSON Molina, [facility] [place], MRI Safety Technologist 03/05/2018 Gdt [id number] Lead Guidant 4136 / [id number] / Description:When MRI is orde red @ [facility], Defibrillator E162 and Leads 0292 and 4126 combined together do not constitute an ImageReady MRI-Conditional System. The patient may not have a MRI with this system in place. BENSON Molina [facility] [place], MRI Safety Technologist 03/05/2018 Bsx [id number] [id number] Lead Choc[employer] 0292 / [id number] / Description:When MRI is orde red @ [facility], Defibrillator E162 and Leads 0292 and 4126 combined together do not constitute an ImageReady MRI-Conditional System. The patient may not have a MRI with this system in place. BENSON Molina [facility], MRI Safety Technologist 03/05/2018 Gdt [id number] [id number] Lead Guidant 4136 / [id number] / Description:When MRI is orde red @ [facility], Defibrillator E162 and Leads 0292 and 4126 [...] PM EST) Hepatitis C Antibody Negative Negative [facility] Blood 03/19/2021 3:50 PM EST 03/19/2021 4:21 PM EST Narrative Resulting Agency Comment Spec In Lab Elsie Cristobal MD CHEMISTRY ORDERABLES [facility] [place] [address] * (ABNORMAL) Comprehensive metabolic panel (non-fasting) (03/19/2021 3:50 PM EST) Glucose 143 65 - 199 mg/dL [facility] Comment:Diabetes: >=200 mg/d L plus symptoms Blood Urea Nitrogen 20 10 - 20 mg/dL [facility] Creatinine 0.99 0.80 - 1.50 mg/dL [facility] Sodium 141 135 - 145 mmol/L [facility] Potassium 4.6 3.5 - 5.0 mmol/L [facility] Comment: Please note: ??Patients with WBC >100,000 may have falsely elevated Potassium levels. ??For accurate Potassium quantification in these patients send serum separator tube (gold top) for subsequent determinations. ??Contact the Clinical Chemistry Laboratory if there are any questions. Chloride 102 98 - 107 mmol/L [facility] Carbon Dioxide 25 22 - 31 mmol/L [facility] Anion Gap 14 5 - 15 mmol/L [facility] Calcium 9.9 8.5 - 10.5 mg/dL [facility] Protein, Total 7.6 6.1 - 8.0 g/dL [facility] Albumin 4.7 3.2 - 5.2 g/dL [facility] Aspartate Aminotransferase 116(H) 0 - 39 unit/L [facility] Alanine Aminotransferase 124(H) 0 - 55 unit/L [facility] Alkaline Phosphatase 77 40 - 130 unit/L [facility] Bilirubin, Total 0.6 0.2 - 1.3 mg/dL [facility] Est Glomerular Filtration Rate 76 >=60 mL/min/1. 73 m?? [facility] Comment: This patient? s estimated [...] In Lab Elsie Cristobal MD [place] [address] from Last 3 Months or Most Recently [...] is based on Patients wishes. Care Teams Clinical Business Manager Relationship Specialty Start Date End Date Dewayne Carrington MD PCP - General 09/02/16
--- OUTSIDE RECORDS SUMMARY | 2024-05-09 16:15 | XMS_ITS | Encounter Summary ---
Author Organization [facility] Address [facility] [place] [address] Care Team Providers Care Conveyor Weigher Operator Name Role Phone Dewayne Carrington MD Primary Care Provider [phone] Encounter Details Date Type Department Care Team (Late st Contact Info) Description 03/27/2022 Orders Only Cardiology at [address] [phone] Fantasma Matos MD [facility] [place] [address] Social History Tobacco Use Types Packs/Day Years [...] AM EST Hospital Encounter [place] [address] Arrived documented as of this encounter Procedures [...] on filedocumented in this encounter Care Teams Conveyor Weigher Operator Relationship Specialty Start Date End Date Dewayne Carrington MD PCP - General 09/02/16 documented as of this encounter
--- OUTSIDE RECORDS SUMMARY | 2024-05-09 16:15 | XMS_ITS | Encounter Summary ---
Author Organization [facility] Address [address] [place] [address] Care Team Providers Care Autos Disassembler Name Role Phone Iggy Sevilla MD Primary Care Provider [phone] Reason for Visit * Reason Onset Date Comments Procedure 04/24/2011 Encounter Details Date Type Department Care Team (Late st Contact Info) Description 04/24/2011 Pre-Procedure Orders Encounter [facility] Psychiatric Consultation Program - [address] [address] Juwan Sawant MD [address] [place] [address] [address] [place] [address] Social History Tobacco Use Types Packs/Day Years [...] on filedocumented in this encounter Care Teams Autos Disassembler Relationship Specialty Start Date End Date Iggy Sevilla MD [address] [place] [address] PCP - General 03/24/11 12/19/18 documented as of this encounter
--- OUTSIDE RECORDS SUMMARY | 2024-05-09 16:15 | XMS_ITS | Encounter Summary ---
Author Organization [facility] Address [address] [place] [address] Care Team Providers Care Manager Of It Name Role Phone Iggy Sevilla MD Primary Care Provider [phone] Reason for Visit * Reason Onset Date Comments Procedure 04/03/2011 Encounter Details Date Type Department Care Team ([facility] st Contact Info) Description 04/03/2011 Pre-Procedure Orders Encounter [facility] Psychiatric Consultation Program - [address] [address] Juwan Sawant MD [address] [place] [address] [address] [place] [phone] Social History Tobacco Use Types Packs/Day Years [...] filedocumented in this encounter Care Teams Manager Of It Relationship Specialty Start Date End Date Iggy Sevilla MD [address] [place] [address] PCP - General 03/24/11 12/19/18 documented as of this encounter
--- OUTSIDE RECORDS SUMMARY | 2024-05-09 16:15 | XMS_ITS | Encounter Summary ---
Author Organization [facility] Address [address] [place] [address] Care Team Providers Care Equal Opportunity Assistant Name Role Phone Iggy Sevilla MD Primary Care Provider [phone] Reason for Visit * Reason Onset Date Comments Procedure 04/17/2011 Encounter Details Date Type Department Care Team ([facility] st Contact Info) Description 04/17/2011 Pre-Procedure Orders Encounter [facility] Psychiatric Consultation Program - [address] [address] Juwan Sawant MD [address] [place] [address] [address] [place] [phone] Social History Tobacco Use Types Packs/Day Years [...] on filedocumented in this encounter Care Teams Equal Opportunity Assistant Relationship Specialty Start Date End Date Iggy Sevilla MD [address] [place] [address] PCP - General 03/24/11 12/19/18 documented as of this encounter
--- OUTSIDE RECORDS SUMMARY | 2024-05-09 16:15 | XMS_ITS | Encounter Summary ---
[place] [address] Care Team Providers Care Corrosion Prevention Metal Sprayer Name Role Phone Dewayne Carrington MD Primary Care Provider [phone] Encounter Details Date Type Department Care Team (Late st Contact Info) Description 03/27/2023 Telephone Cardiology at [address] [address] Halina Garcia Social History Tobacco [...] next two weeks. He was seen at [facility] ED for dizziness and it is unclear if his device was interrogated completely. With Device Nurse is ok. [facility] Records have been requested. Halina Garcia EP Scheduling documented in this encounter Plan of Treatment Upcoming Encounters Date Type Department Care Team (Late st Contact Info) Description 06/15/2024 10:00 AM EST Hospital Encounter [place] [address] Arrived documented as of this encounter Visit Diagnoses Not on filedocumented in this encounter Care Teams Corrosion Prevention Metal Sprayer Relationship Specialty Start Date End Date Dewayne Carrington MD PCP - General 09/02/16 documented as of this encounter
--- OUTSIDE RECORDS SUMMARY | 2024-05-09 16:15 | XMS_ITS | Encounter Summary ---
Author Organization [facility] Address [address] [place] [address] Care Team Providers Care Child Specialist Name Role Phone Iggy Sevilla MD Primary Care Provider [phone] Reason for Visit * Reason Onset Date Comments Procedure 04/01/2011 Encounter Details Date Type Department Care Team ([facility] st Contact Info) Description 04/01/2011 Pre-Procedure Orders Encounter [facility] Psychiatric Consultation Program - [address] [address] Juwan Sawant MD [address] [place] [address] [address] [place] [phone] Social History Tobacco Use Types Packs/Day Years [...] on filedocumented in this encounter Care Teams Child Specialist Relationship Specialty Start Date End Date Iggy Sevilla MD [address] [place] [address] PCP - General 03/24/11 12/19/18 documented as of this encounter
--- OUTSIDE RECORDS SUMMARY | 2024-05-09 16:15 | XMS_ITS | Encounter Summary ---
Author Organization [facility] Address [address] [place] [address] Care Team Providers Care Radius Grinder Name Role Phone Iggy Sevilla MD Primary Care Provider [phone] Reason for Visit * Reason Onset Date Comments Procedure 04/08/2011 Encounter Details Date Type Department Care Team ([facility] st Contact Info) Description 04/08/2011 Pre-Procedure Orders Encounter [facility] Psychiatric Consultation Program - [facility] [address] [place] [address] Juwan Sawant MD [address] [place] [address] [address] [place] [phone] Social History Tobacco Use Types Packs/Day Years [...] on filedocumented in this encounter Care Teams Radius Grinder Relationship Specialty Start Date End Date Iggy Sevilla MD [address] [place] [address] PCP - General 03/24/11 12/19/18 documented as of this encounter
--- OUTSIDE RECORDS SUMMARY | 2024-05-09 16:15 | XMS_ITS | Encounter Summary ---
[place] [address] Care Team Providers Care Cleat Layer Name Role Phone Dewayne Carrington MD Primary Care Provider [phone] Encounter Details Date Type Department Care Team [...] st Contact Info) Description 06/15/2024 10:00 AM [facility] Hospital Encounter Non-Invasive [place] [address] Arrived documented as of this encounter Visit Diagnoses Not on filedocumented in this encounter Care Teams Cleat Layer Relationship Specialty Start Date End Date Dewayne Carrington MD PCP - General 09/02/16 documented as of this encounter
--- OUTSIDE RECORDS SUMMARY | 2024-05-09 16:15 | XMS_ITS | Encounter Summary ---
[place] [address] Care Team Providers Care Leaf Blender Name Role Phone Dewayne Carrington MD Primary Care Provider [phone] Encounter Details Date Type Department Care Team (Latest Contact Info) Description 12/18/2023 10:00 AM EDT - 12/18/2023 11:59 PM EDT Hospital Encounter [place] [address] Discharge Disposition: Home Social History Tobacco Use [...] AM EST Hospital Encounter [place] [address] Arrived documented as of this encounter Visit Diagnoses Not on filedocumented in this encounter Care Teams Leaf Blender Relationship Specialty Start Date End Date Dewayne Carrington MD PCP - General 09/02/16 documented as of this encounter
--- OUTSIDE RECORDS SUMMARY | 2024-05-09 16:15 | XMS_ITS | Encounter Summary ---
Author Organization [facility] Address [address] [place] [address] Care Team Providers Care Hat Band Attacher Name Role Phone Iggy Sevilla MD Primary Care Provider [phone] Reason for Visit * Reason Onset Date Comments Procedure 04/11/2011 Encounter Details Date Type Department Care Team ([facility] st Contact Info) Description 04/11/2011 Pre-Procedure Orders Encounter [facility] Consultation Program - [address] [address] Juwan Sawant MD [address] [place] [address] [address] [place] [phone] Social History Tobacco Use Types Packs/Day Years [...] filedocumented in this encounter Care Teams Hat Band Attacher Relationship Specialty Start Date End Date Iggy Sevilla MD [address] [place] [phone] PCP - General 03/24/11 12/19/18 documented as of this encounter
--- OUTSIDE RECORDS SUMMARY | 2024-05-09 16:15 | XMS_ITS | Encounter Summary ---
Author Organization [facility] Address [address] [place] [address] Care Team Providers Care Fashion Supervisor Name Role Phone Iggy Sevilla MD Primary Care Provider [phone] Reason for Visit * Reason Onset Date Comments Procedure 05/01/2011 Encounter Details Date Type Department Care Team (Late st Contact Info) Description 05/01/2011 Pre-Procedure Orders Encounter [facility] Consultation Program - [address] [address] Juwan Sawant MD [address] [place] [address] [address] [place] [phone] Social History Tobacco Use Types Packs/Day Years [...] on filedocumented in this encounter Care Teams Fashion Supervisor Relationship Specialty Start Date End Date Iggy Sevilla MD [address] [place] [phone] PCP - General 03/24/11 12/19/18 documented as of this encounter
--- OUTSIDE RECORDS SUMMARY | 2024-05-09 16:15 | XMS_ITS | Encounter Summary ---
Author Organization [facility] Address [address] [place] [address] Care Team Providers Care Engraver Tire Mold Name Role Phone None, Provider Primary Care Provider Iggy Linda MD Primary Care Provider Encounter Details Date Type Department Care Team ([facility] st Contact Info) Description 03/22/2011 17:44 EST - 05/05/2011 12:17 EST Hospital Encounter [facility] Inpatient Psychiatry Unit [address] [place] [address] Sajan Stanford MD [address] [facility] Level [address] [place] [address] Mary Jauregui MD Munson, Richard [...] of discharge: Mary Jauregui MD DISCHARGE DIAGNOSIS Dresden I: Major Depression, single episode, with psychotic features. Dresden II: Deferred Dresden III: HTN, CAD s/p PCI with stent, type II DM, h/o nephrolithiasis, s/p cholecystectomy Dresden IV: , unemployed, recently relocated Dresden V: GAF on admission: 20 ; on [...] Mr. Santiago, who was discharged from the [facility] on 03/19/11 after a two week [...] ultimately requiring voluntary inpatient psychiatric treatment in [place], [place], where Mr. Santiago and his had lived for many years. During that admission, Mr. Santiago was started on a regimen including duloxetine and mirtazapine. In May of 2010, at the end of that stay, Mr. Santiago's daughter travelled to [place], helped him sell his home, and moved him and his belongings to [place], where she rented an apartment in [place]. 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 Santiago has appeared progressively aimless and lacking in motivation. 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 Santiago has begun to sleep late and has become socially isolated. He seems hopeless and unhappy. In mid-February, when Mr. Sals symptoms became intolerable, he was assessed by a turbinated bone grinder at [facility], where he answered affirmatively to questions about suicidal ideation. An admission to the [facility] was arranged, and under the care of Dr. Banegas, Mr. Sals regimen was changed, and in place of duloxetine and mirtazapine, perphenazine, nortriptyline, and zolpidem were started. On 03/19/11, two weeks after admission, Mr. Santiago discharged against medical advice. That evening, he was transported to the [facility] ED again by his daughter, who was impressed with the intensityof her father's symptoms. He again underwent Crisis assessment. Mr. Santiago was discharged home, but was readmitted to [facility] the following morning (03/21/11) after being [...] in italics.) The patient was admitted to [facility] In[facility] Psychiatry unit involuntarily. History was obtained [...] weaned appropriately. On 04/08, Perphenazine was discontinued. Nkykmgyq91/30, Ativan was tapered and discontinuedon 04/29. Oxycodone- [...] and judgment fair to good. Discharge Medications: Shanhaz Santiago Home Medication Instructions NANETTE:[id number] Printed on:05/06/112023 Medication Information aspirin chewable 81 [...] 05 at 5pm with psychotherapist Vineet Caro. [address] [place] [address]. . - Please keep your appointment on May 22 at 1pm for medication management with Iggy Tenorio MD at [facility], [address] [place] [address]. . - Follow-up with Dr. Hampton (PCP) in [facility] on June 10. Mental Health Crisis Services: [facility] Prescriptions sent to [facility] in [facility]. Total time spent on day of discharge: 40 min Mary Jauregui MD Attending Psychiatrist cc: Iggy Tenorio MD [facility], [place] documented in this encounter Discharge Instructions * Discharge Instructions* Josue Ward MD - 05/05/2011 11:42 EST Additional Medication Instructions: Do not use alcohol Do no use illicit drugs Do not take any medications that were not prescribed Consult with a physician before starting any new herbal supplements or elpu-xbx-fxvmnmy medications, as some of these may interact with your prescribed medication. Discharge Plans/Follow-up Appointments: - Please keep your appointment on May 05 at 5pm with psychotherapist Vineet Caro. [address] [place] [address]. . - Please keep your appointment on May 22 at 1pm for medication management with Iggy Tenorio MD at [facility], [address] [place] [address]. . - Follow-up with Dr. Hampton (PCP) in [facility] on June 10. Mental Health Crisis Services: [facility] Prescriptions sent to [facility] in [place] [...] documented in this encounter Progress Notes * TON CONTAINER SHIPPER, LIYA 2 - 07/23/2011 1031 EDT * Tearoom Hostess, Liya - 05/13/2011 0839 EST * Katarzyna [...] 05/05/2011 1024 EST Active Multi-Disciplinary problems: NUTRITION [363816] (04/07/11) Patient Active Problem List Diagnoses ??? [...] came to drive her father home to [facility]. Left at 1217 with belongings and his daughter. Tamika Cordero RN 05/05/2011 10:25 * Shahnaz Lou MD - 05/04/2011 1229 EST ATTENDING MATERIALS BUYER NOTE REASON FOR HOSPITALIZATION: Depression HOSPITAL DAY: [...] next week Shahnaz Lou MD Attending Psychiatrist aviation electronics technician Pager [phone] * Shahnaz Lou MD - 05/03/2011 1346 EST ATTENDING MATERIALS BUYER NOTE REASON FOR HOSPITALIZATION: Depression HOSPITAL DAY: [...] next week Shahnaz Lou MD Attending Psychiatrist aviation electronics technician Pager [phone] * Alice Fatima RN - 05/03/2011 0917 EST Active Multi-Disciplinary problems: ALTERED THOUGHT PROCESSES [524879] (03/22/11) ALTERATION IN SLEEP [882830] (03/23/11) KNOWLEDGE DEFICIT [964996] (04/07/11) NUTRITION [094048] (04/07/11) RISK FOR INFECTION [692599] (04/07/11) GLYCEMIA IMBALANCE [827541] (04/07/11) ANXIETY [258057] (04/09/11) Ineffective Coping [510423] (04/09/11) SELF CARE DEFICIT [201264] (04/09/11) ALTERATION IN MOOD [499069] (04/09/11) Discharge Planning [648668] (04/27/11) Data: The pt is unable to [...] 10 mg Oral QHS ??? influenza vaccine [id number] (PF) (FLUZONE) 45 mcg (15 mcg x [...] Fingerstick 153 (*) 70 - 100 (mg/dl) Airplane Pilot Photogrammetry ID [id number] GLUCOSE, GLUCOMETER Collection Time 05/01/11 2051 Component Value Range Glucose, Fingerstick 184 (*) 70 - 100 (mg/dl) Airplane Pilot Photogrammetry ID [id number] GLUCOSE, GLUCOMETER Collection Time 05/02/11 0830 Component Value Range Glucose, Fingerstick 125 (*) 70 - 100 (mg/dl) Airplane Pilot Photogrammetry ID [id number] GLUCOSE, GLUCOMETER Collection Time 05/02/11 1155 Component Value Range Glucose, Fingerstick 283 (*) 70 - 100 (mg/dl) Airplane Pilot Photogrammetry ID [id number] Assessment/Formulation: Mr. Santiago is a 60-year-old man [...] looks forward to therapy as anoutpatient. Diagnosis: Dresden I: Major depression, recurrent, with psychotic features. Dresden II: Deferred Dresden III: HTN, CAD s/p PCI with stent, [...] the resident's note. MARY JAUREGUI MD Pager [phone] Attending, Inpatient Psychiatry, [facility] * Mary Jauregui MD - 05/01/2011 [...] did not want to see a supervisor shellfish farming when offered (he already had seen one and said he had a book to help him with meals). 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 influenza vaccine [id number] (PF) (FLUZONE) 45 mcg (15 mcg x [...] Fingerstick 142 (*) 70 - 100 (mg/dl) Airplane Pilot Photogrammetry ID [id number] GLUCOSE, GLUCOMETER Collection Time 05/01/11 0801 Component Value Range Glucose, Fingerstick 124 (*) 70 - 100 (mg/dl) Airplane Pilot Photogrammetry ID [id number] GLUCOSE, GLUCOMETER Collection Time 05/01/11 1203 Component Value Range Glucose, Fingerstick 124 (*) 70 - 100 (mg/dl) Airplane Pilot Photogrammetry ID [id number] GLUCOSE, GLUCOMETER Collection Time 05/01/11 1657 Component Value Range Glucose, Fingerstick 153 (*) 70 - 100 (mg/dl) Airplane Pilot Photogrammetry ID [id number] Assessment/Formulation: Mr. Santiago is a 60-year-old man [...] but will consider trying again tomorrow. Diagnosis: Dresden I: Major depression, recurrent, with psychotic features. Dresden II: Deferred Dresden III: HTN, CAD s/p PCI with stent, [...] the resident's note. MARY JAUREGUI MD Pager [phone] Attending, Inpatient Psychiatry, [facility] * Gil Tamika M - 05/01/2011 2083 EST Active Multi-Disciplinary problems: ALTERED THOUGHT PROCESSES [138821] (03/22/11) ALTERATION IN SLEEP [942094] (03/23/11) KNOWLEDGE DEFICIT [256784] (04/07/11) NUTRITION [186827] (04/07/11) RISK FOR INFECTION [085797] (04/07/11) GLYCEMIA IMBALANCE [215921] (04/07/11) ANXIETY [310748] (04/09/11) Ineffective Coping [283339] (04/09/11) SELF CARE DEFICIT [914535] (04/09/11) ALTERATION IN MOOD [931153] (04/09/11) Discharge Planning [082207] (04/27/11) Patient Active Problem List Diagnoses ??? Diabetes mellitus ??? Major depression ??? CAD (coronary artery disease) ??? Nephrolithiasis Data: Will be npo after midnight for ECT in the morning. Give no benzos after 1900. Will need a maria isabel prior to leaving for treatment. [place] ready for discharge on Thursday and continued [...] Nixon Schwartz LICSW - 05/01/2011 1309 EST [facility] Electroconvulsive Therapy Service Cognition & Depression Rating Date of Service: 05/01/2011 Time: 1300 Duration of Service: 20 minutes Folstein MMSE Total Score (Max. Total=27): 27 Level of Consciousness: Alert. 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 He chatted with another patient about their [...] he wonders if he should be ain penitentiary, but knows he is too young. He [...] History Update: Pt [facility] located near his daughter. Current [...] 10 mg Oral QHS ??? influenza vaccine [id number] (PF) (FLUZONE) 45 mcg (15 mcg x [...] Fingerstick 206 (*) 70 - 100 (mg/dl) Airplane Pilot Photogrammetry ID [id number] GLUCOSE, GLUCOMETER Collection Time 04/30/11 0832 Component Value Range Glucose, Fingerstick 105 (*) 70 - 100 (mg/dl) Airplane Pilot Photogrammetry ID [id number] GLUCOSE, GLUCOMETER Collection Time 04/30/11 1222 Component Value Range Glucose, Fingerstick 169 (*) 70 - 100 (mg/dl) Airplane Pilot Photogrammetry ID [id number] GLUCOSE, GLUCOMETER Collection Time 04/30/11 1655 Component Value Range Glucose, Fingerstick 155 (*) 70 - 100 (mg/dl) Airplane Pilot Photogrammetry ID [id number] Assessment/Formulation: Mr. Santiago is a 60-year-old man [...] his move into his new apt. Diagnosis: Dresden I: Major depression, recurrent, with psychotic features. Dresden II: Deferred Dresden III: HTN, CAD s/p PCI with stent, [...] the resident's note. MARY JAUREGUI MD Pager [phone] Attending, Inpatient Psychiatry, [facility] * Stacy Holder - 04/29/2011 3900 EST Grief and Anger Group: S/O: Pt [...] Denies SI now. Insight and judgment fair. [place] [address] Ward BP 101/63 Pulse [...] and discharge planning. MARY JAUREGUI MD Pager [phone] Attending, Inpatient Psychiatry, [facility] . * Fantasma Barrera - 04/28/20112049 [...] 10 mg Oral QHS ??? influenza vaccine [id number] (PF) (FLUZONE) 45 mcg (15 mcg x [...] Fingerstick 256 (*) 70 - 100 (mg/dl) Airplane Pilot Photogrammetry ID [id number] GLUCOSE, GLUCOMETER Collection Time 04/28/11 0745 Component Value Range Glucose, Fingerstick 110 (*) 70 - 100 (mg/dl) Airplane Pilot Photogrammetry ID [id number] GLUCOSE, GLUCOMETER Collection Time 04/28/11 1221 Component Value Range Glucose, Fingerstick 250 (*) 70 - 100 (mg/dl) Airplane Pilot Photogrammetry ID [id number] GLUCOSE, GLUCOMETER Collection Time 04/28/11 1705 Component Value Range Glucose, Fingerstick 143 (*) 70 - 100 (mg/dl) Airplane Pilot Photogrammetry ID [id number] Assessment/Formulation: Mr. Santiago is a 60-year-old man [...] to d/c tomorrow. Sylvia spoke with ECT organizational research consultant Jese who suggested waiting until MADRAS score comes up a bit more. Family meeting tomorrow. Resolution of living situation will make big impact. Good pass over weekend, though he was anxious about it initially. Discussed risk and benefits of increasing Nortriptyline. Will conitnue current dose at this time to minimize risk and side effects. Diagnosis: Dresden I: Major depression, recurrent, with psychotic features. Dresden II: Deferred Dresden III: HTN, CAD s/p PCI with stent, [...] the resident's note. MARY JAUREGUI MD Pager [phone] Attending, Inpatient Psychiatry, [facility] * Barbie Jama RN - 04/28/2011 [...] 10 mg Oral QHS ??? influenza vaccine [id number] (PF) (FLUZONE) 45 mcg (15 mcg x [...] 10 mg Oral QHS ??? influenza vaccine [id number] (PF) (FLUZONE) 45 mcg (15 mcg x [...] and reflections on the readings that the cnc mill programmer presented. A: Engaged, open, introspective P: To [...] 10 mg Oral QHS ??? influenza vaccine [id number] (PF) (FLUZONE) 45 mcg (15 mcg x [...] 24 hour(s)) GLUCOSE, GLUCOMETER Collection Time 04/24/11 6351 Component Value Range Glucose, Fingerstick 189 (*) 70 - 100 (mg/dl) Airplane Pilot Photogrammetry ID [id number] GLUCOSE, GLUCOMETER Collection Time 04/24/11 2052 Component Value Range Glucose, Fingerstick 283 (*) 70 - 100 (mg/dl) Airplane Pilot Photogrammetry ID [id number] GLUCOSE, GLUCOMETER Collection Time 04/25/11 0819 Component Value Range Glucose, Fingerstick 96 70 - 100 (mg/dl) Airplane Pilot Photogrammetry ID [id number] GLUCOSE, GLUCOMETER Collection Time 04/25/11 1322 Component Value Range Glucose, Fingerstick 136 (*) 70 - 100 (mg/dl) Airplane Pilot Photogrammetry ID [id number] Assessment/Formulation: Mr. Santiago is a 60-year-old man [...] weather worsens (he is relatively new to [place]). Diagnosis: Dresden I: Major depression, recurrent, with psychotic features. Dresden II: Deferred Dresden III: HTN, CAD s/p PCI with stent, [...] 25 minutes KARINA LUU MD Attending Psychiatrist [facility] Pager [phone] * Chen Vázquez RN - 04/25/2011 0936 [...] and about dealing with the weather in [place]. He notes he has an appointment with a counselor in [facility], Dewayne James, later this month. Social History Update: See update above. Also, he notes [place] andspent time moving because of his job: living in [place], [facility], and [place]. Current Facility-Administered Medications Medication Route Frequency ??? [...] 10 mg Oral QHS ??? influenza vaccine [id number] (PF) (FLUZONE) 45 mcg (15 mcg x [...] Fingerstick 248 (*) 70 - 100 (mg/dl) Airplane Pilot Photogrammetry ID [id number] GLUCOSE, GLUCOMETER Collection Time 04/24/11 0813 Component Value Range Glucose, Fingerstick 126 (*) 70 - 100 (mg/dl) Airplane Pilot Photogrammetry ID [id number] GLUCOSE, GLUCOMETER Collection Time 04/24/11 1152 Component Value Range Glucose, Fingerstick 100 70 - 100 (mg/dl) Airplane Pilot Photogrammetry ID [id number] GLUCOSE, GLUCOMETER Collection Time 04/24/11 1717 Component Value Range Glucose, Fingerstick 189 (*) 70 - 100 (mg/dl) Airplane Pilot Photogrammetry ID [id number] Assessment/Formulation: Mr. Santiago is a 60-year-old man [...] it will be stopped before discharge). Diagnosis: Dresden I: Major depression, recurrent, with psychotic features. Dresden II: Deferred Dresden III: HTN, CAD s/p PCI with stent, [...] 25 minutes KARINA LUU MD Attending Psychiatrist [facility] [id number] * Nixon Schwartz, [facility] - 04/24/2011 6230 EST [facility] Electroconvulsive Therapy Service Cognition & Depression Rating Date of Service: 04/24/2011 Time: 1500 Duration of Service: 20 minutes Folstein MMSE Total Score (Max. Total=27): 27 Level of Consciousness: Alert. Reasoning: intact Judgement: good Fund of Knowledge: account maintenance representative Diagnosis code: 296.34 Total MADRS Score [...] talks positively about working with his social insurance administrator to craft discharge plans. Patient is also [...] appointment scheduled with therapist Dewayne James at [facility] in [facility] on May [...] twice before sought counseling support: once in [place] soon after his 's and this past summer in [place] (Dr. Ayala), a psychiatrist he was referred [...] to his day. Apparently, when living in [place], he played a large role in the [...] damn to them. The stepdaughter hired a lawyer probate, as did the patient, and she was [...] 10 mg Oral QHS ??? influenza vaccine [id number] (PF) (FLUZONE) 45 mcg (15 mcg x [...] Fingerstick 238 (*) 70 - 100 (mg/dl) Airplane Pilot Photogrammetry ID [id number] GLUCOSE, GLUCOMETER Collection Time 04/23/11 0819 Component Value Range Glucose, Fingerstick 132 (*) 70 - 100 (mg/dl) Airplane Pilot Photogrammetry ID [id number] GLUCOSE, GLUCOMETER Collection Time 04/23/11 0926 Component Value Range Glucose, Fingerstick 161 (*) 70 - 100 (mg/dl) Airplane Pilot Photogrammetry ID [id number] GLUCOSE, GLUCOMETER Collection Time 04/23/11 1208 Component Value Range Glucose, Fingerstick 230 (*) 70 - 100 (mg/dl) Airplane Pilot Photogrammetry ID [id number] Assessment/Formulation: Mr. Santiago is a 60-year-old man [...] anger/anxiety about the missed ECT session. Diagnosis: Dresden I: Major depression, recurrent, with psychotic features. Dresden II: Deferred Dresden III: HTN, CAD s/p PCI with stent, [...] 25 minutes KARINA LUU MD Attending Psychiatrist [facility] Pager [phone] * OlegarioTramaine wade (At) - 04/23/2011 0586 EST Cognitive group: S/O: Patient participated in the discussion of cognitive distortions. Pt related to should statements, offering the example, I should have saved more for assisted. When asked how he might word this [...] and increase coping skills. * Katarzyna Rincon [facility] - 04/23/2011 0903 EST Social Work Progress Note Intervention/Service: Discharge planning Spoke with Mr. Santiago's daughter, Nkechi Weber ([phone]) who is concerned about her father'sslow progress. [...] him to return to his apartment in [place] - too isolated, and far from her, [...] mental health follow-up, and agreed a referral [facility] in [place] makes sense. * Karina Luu MD - 04/22/2011 9210 EST Inpatient Psychiatry Daily Progress Note 04/22/2011 [...] his daughter in his current apt (in [place]) and would like to be closer to [...] 10 mg Oral QHS ??? influenza vaccine [id number] (PF) (FLUZONE) 45 mcg (15 mcg x [...] Fingerstick 256 (*) 70 - 100 (mg/dl) Airplane Pilot Photogrammetry ID [id number] GLUCOSE, GLUCOMETER Collection Time 04/22/11 0802 Component Value Range Glucose, Fingerstick 138 (*) 70 - 100 (mg/dl) Airplane Pilot Photogrammetry ID [id number] GLUCOSE, GLUCOMETER Collection Time 04/22/11 1148 Component Value Range Glucose, Fingerstick 158 (*) 70 - 100 (mg/dl) Airplane Pilot Photogrammetry ID [id number] GLUCOSE, GLUCOMETER Collection Time 04/22/11 1657 Component Value Range Glucose, Fingerstick 180 (*) 70 - 100 (mg/dl) Airplane Pilot Photogrammetry ID [id number] Assessment/Formulation: Mr. Santaigo is a 60-year-old man who has had [...] plan to discontinue them before D/C. Diagnosis: Dresden I: Major depression, recurrent, with psychotic features. Dresden II: Deferred Dresden III: HTN, CAD s/p PCI with stent, [...] time: 35 minutes NB: New patient to [place] - Covering for Dr Jauregui. Chart reviewed. Treatment plan updated. KARINA LUU MD Attending Psychiatrist [facility] Pager [phone] * Tamika Cordero - 04/22/2011 5248 EST Active Multi-Disciplinary problems: ALTERED THOUGHT PROCESSES [158707] (03/22/11) ALTERATION IN SLEEP [647110] (03/23/11) KNOWLEDGE DEFICIT [440095] (04/07/11) NUTRITION [414139] (04/07/11) RISK FOR INFECTION [356714] (04/07/11) GLYCEMIA IMBALANCE [683905] (04/07/11) ANXIETY [917236] (04/09/11) Ineffective Coping [966541] (04/09/11) SELF CARE DEFICIT [308272] (04/09/11) ALTERATION IN MOOD [315476] (04/09/11) Patient Active Problem List Diagnoses ??? [...] and follow up [address] Pager [phone] * Lele Lee MD - 04/21/2011 1466 EST 04/21/2011 ATTENDING MATERIALS BUYER NOTE REASON FOR HOSPITALIZATION: depression HOSPITAL DAY: [...] ECT tomorrow. Lele Lee MD Attending Psychiatrist aviation electronics technician Pager [phone] * Kailee Nobles RN - 04/20/2011 2304 [...] MD - 04/20/2011 1509 EST 04/20/2011 ATTENDING MATERIALS BUYER NOTE REASON FOR HOSPITALIZATION: depression HOSPITAL DAY: [...] continue ECT Lele Lee MD Attending Psychiatrist aviation electronics technician Pager [phone] * Lele Lee MD - 04/19/2011 1204 EST 04/19/2011 ATTENDING MATERIALS BUYER NOTE REASON FOR HOSPITALIZATION: depression HOSPITAL DAY: [...] continue ECT Lele Lee MD Attending Psychiatrist aviation electronics technician Pager [phone] * Mary Jauregui MD - 04/18/20111957 EST [...] 10 mg Oral QHS ??? influenza vaccine [id number] (PF) (FLUZONE) 45 mcg (15 mcg x [...] Fingerstick 214 (*) 70 - 100 (mg/dl) Airplane Pilot Photogrammetry ID [id number] GLUCOSE, GLUCOMETER Collection Time 04/18/11 0801 Component Value Range Glucose, Fingerstick 132 (*) 70 - 100 (mg/dl) Airplane Pilot Photogrammetry ID [id number] GLUCOSE, GLUCOMETER Collection Time 04/18/11 1334 Component Value Range Glucose, Fingerstick 88 70 - 100 (mg/dl) Airplane Pilot Photogrammetry ID [id number] GLUCOSE, GLUCOMETER Collection Time 04/18/11 1651 Component Value Range Glucose, Fingerstick 191 (*) 70 - 100 (mg/dl) Airplane Pilot Photogrammetry ID [id number] Assessment/Formulation: Mr. Santiago is a 60-year-old man [...] reducing Percocet to once daily prn. Diagnosis: Dresden I: Major depression, recurrent, with psychotic features. Dresden II: Deferred Dresden III: HTN, CAD s/p PCI with stent, [...] the resident's note. MARY JAUREGUI MD Pager [phone] Attending, Inpatient Psychiatry, [facility] * Benito Lainez RN - 04/18/2011 6235 EST 843 - pt arrived pacu asleep - does not verbalize pain - no resp distress noted 915 - pt arousing, memo soda, denies pain - 925 Report called to [facility] 3RN; waitiing for hortensia BARKSDALE sign out 930 - pt ready for transfer to sb 3 * Yenny Brumfield - 04/17/2011 194 EST Games Group: S/O: Pt came to group approx midway after finishing his supper. He did not want to join in game of [employer], instead he preferred to work on his word search but he sat at the table with usand socialized as he worked on his puzzle, making jokes and laughing. A: Pt engaged with pleasant and zheng affect. Pt improving. P: To continue to participate in groups. * Nixon Schwartz LICSW - 04/17/2011 1556 EST [facility] Electroconvulsive Therapy Service Cognition & Depression Rating Date of Service: 04/17/2011 Time: 1500 Duration of Service: 20 minutes Folstein MMSE Total Score (Max. Total=27): 27 Level of Consciousness: Alert. Reasoning: intact Judgement: fair Fund of Knowledge: account maintenance representative Diagnosis code: 296.34 Total MADRS Score [...] 15:56 * Mary Jauregui MD - 04/17/2011 0965 EST Inpatient Psychiatry Daily Progress Note 04/17/2011 [...] with reality, which he experienced when at [place] and which he attributes to perphenazine). He [...] 10 mg Oral QHS ??? influenza vaccine [id number] (PF) (FLUZONE) 45 mcg (15 mcg x [...] Fingerstick 240 (*) 70 - 100 (mg/dl) Airplane Pilot Photogrammetry ID [id number] GLUCOSE, GLUCOMETER Collection Time 04/16/11 1732 Component Value Range Glucose, Fingerstick 184 (*) 70 - 100 (mg/dl) Airplane Pilot Photogrammetry ID [id number] GLUCOSE, GLUCOMETER Collection Time 04/16/11 2039 Component Value Range Glucose, Fingerstick 257 (*) 70 - 100 (mg/dl) Airplane Pilot Photogrammetry ID [id number] GLUCOSE, GLUCOMETER Collection Time 04/17/11 0819 Component Value Range Glucose, Fingerstick 214 (*) 70 - 100 (mg/dl) Airplane Pilot Photogrammetry ID [id number] Assessment/Formulation: Mr. Santiago is a 60-year-old man [...] ECT with no other med changes. Diagnosis: Dresden I: Major depression, recurrent, with psychotic features. Dresden II: Deferred Dresden III: HTN, CAD s/p PCI with stent, [...] the resident's note. 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 Current Facility-Administered Medications Medication Route [...] Oral AT BEDTIME PRN ??? influenza vaccine [id number] (PF) (FLUZONE) 45 mcg (15 mcg x [...] Fingerstick 169 (*) 70 - 100 (mg/dl) Airplane Pilot Photogrammetry ID [id number] GLUCOSE, GLUCOMETER Collection Time 04/15/11 1652 Component Value Range Glucose, Fingerstick 235 (*) 70 - 100 (mg/dl) Airplane Pilot Photogrammetry ID [id number] GLUCOSE, GLUCOMETER Collection Time 04/15/11 2117 Component Value Range Glucose, Fingerstick 149 (*) 70 - 100 (mg/dl) Airplane Pilot Photogrammetry ID [id number] GLUCOSE, GLUCOMETER Collection Time 04/16/11 0805 Component Value Range Glucose, Fingerstick 147 (*) 70 - 100 (mg/dl) Airplane Pilot Photogrammetry ID [id number] Assessment/Formulation: Mr. Santiago is a 60-year-old man [...] he had been on when hospitalized at [facility] in Feb 2011. Goals will be to continue ECT and try to taper lorazepam and oxycodone. Diagnosis: Dresden I: Major depression, recurrent, with psychotic features. Dresden II: Deferred Dresden III: HTN, CAD s/p PCI with stent, [...] the resident's note. MARY JAUREGUI MD Pager [phone] Attending, Inpatient Psychiatry, [facility] * Mary Jauregui MD - 04/15/2011 2256 EST 04/15/2011 ATTENDING MATERIALS BUYER NOTE REASON FOR HOSPITALIZATION: depression HOSPITAL DAY: LOS: 24 days INTERIM HISTORY: Events of past 24h reviewed with nursing staff. Lying on bed. Good pass with daughter to [employer]. Enjoyed his meal. Slept about 4 h. Up early, worked on word search, then back to nap. Anticipating ECT in AM. EXAM: In usual clothes. Calm, less negative today. Fair eye contact. Speech fluent. Mood embedded nurse. Thought logical. Denies SI. Insight and judgment [...] treatment team. Mary Jauregui MD Attending Psychiatrist aviation electronics technician Pager [phone] * Mary Jauregui MD - 04/14/2011 1650 EST 04/14/2011 ATTENDING MATERIALS BUYER NOTE REASON FOR HOSPITALIZATION: depression HOSPITAL DAY: [...] treatment team. Mary Jauregui MD Attending Psychiatrist aviation electronics technician Pager [phone] * Katarzyna Rincon CSW - 04/14/2011 1509 [...] Oral AT BEDTIME PRN ??? influenza vaccine [id number] (PF) (FLUZONE) 45 mcg (15 mcg x [...] Oral AT BEDTIME PRN ??? influenza vaccine [id number] (PF) (FLUZONE) 45 mcg (15 mcg x [...] 04/12/2011 14:41 * Tamika Cordero - 04/11/2011 6867 EST Active Multi-Disciplinary problems: ALTERED THOUGHT PROCESSES [779272] (03/22/11) ALTERATION IN SLEEP [795236] (03/23/11) KNOWLEDGE DEFICIT [117553] (04/07/11) NUTRITION [682278] (04/07/11) RISK FOR INFECTION [877703] (04/07/11) GLYCEMIA IMBALANCE [575196] (04/07/11) ANXIETY [060067] (04/09/11) Ineffective Coping [332242] (04/09/11) SELF CARE DEFICIT [211401] (04/09/11) ALTERATION IN MOOD [837514] (04/09/11) Patient Active Problem List Diagnoses ??? [...] Oral AT BEDTIME PRN ??? influenza vaccine [id number] (PF) (FLUZONE) 45 mcg (15 mcg x [...] Fingerstick 226 (*) 70 - 100 (mg/dl) Airplane Pilot Photogrammetry ID [id number] GLUCOSE, GLUCOMETER Collection Time 04/10/11 2109 Component Value Range Glucose, Fingerstick 280 (*) 70 - 100 (mg/dl) Airplane Pilot Photogrammetry ID [id number] GLUCOSE, GLUCOMETER Collection Time 04/11/11 0758 Component Value Range Glucose, Fingerstick 106 (*) 70 - 100 (mg/dl) Airplane Pilot Photogrammetry ID [id number] Assessment/Formulation: Mr. Santiago is a 60-year-old man [...] he had been on when hospitalized at [facility] in Feb 2011. However, his thoughts remain quite negative at this time. Willcontinue with nortriptyline and ECT. Diagnosis: Dresden I: Major depression, recurrent, with psychotic features. Dresden II: Deferred Dresden III: HTN, CAD s/p PCI with stent, [...] the resident's note. MARY JAUREGUI MD Pager [phone] Attending, Inpatient Psychiatry, [facility] * Kim Davis - 04/10/2011 1800 [...] Oral AT BEDTIME PRN ??? influenza vaccine [id number] (PF) (FLUZONE) 45 mcg (15 mcg x [...] Fingerstick 221 (*) 70 - 100 (mg/dl) Airplane Pilot Photogrammetry ID [id number] GLUCOSE, GLUCOMETER Collection Time 04/09/11 1211 Component Value Range Glucose, Fingerstick 218 (*) 70 - 100 (mg/dl) Airplane Pilot Photogrammetry ID [id number] GLUCOSE, GLUCOMETER Collection Time 04/09/11 1729 Component Value Range Glucose, Fingerstick 168 (*) 70 - 100 (mg/dl) Airplane Pilot Photogrammetry ID [id number] GLUCOSE, GLUCOMETER Collection Time 04/09/11 2120 Component Value Range Glucose, Fingerstick 295 (*) 70 - 100 (mg/dl) Airplane Pilot Photogrammetry ID [id number] GLUCOSE, GLUCOMETER Collection Time 04/10/11 3189 Component Value Range Glucose, Fingerstick 221 (*) 70 - 100 (mg/dl) Airplane Pilot Photogrammetry ID [id number] Other studies:N/A Assessment/Formulation: Mr. Shahnaz Santiago is a 60-year-old male with a past psychiatric history of major depression with onset following the of his in August of 2009, admitted after a serious intentional overdose. The patient was discharged from the [facility] on 03/19/11 after a two week stay for Depressive symptoms. The patient is currently midcycle through his first course of ECT. The patient endorses significant improvement in mood symptoms. Affect is more animated. Patient is engaging in futuristic thinking. Patient plans to continue with tri-weekly ECT treatments. No changes today. Diagnosis: Dresden I: Major Depression, single episode, with psychotic features. Dresden II: Deferred. Dresden III: HTN, CAD s/p PCI with stent, [...] the resident's note. MARY JAUREGUI MD Pager [phone] Attending, Inpatient Psychiatry, [facility] * Mary Jauregui MD - 04/09/2011 [...] Overnight nursing reports the patient attended the [employer] group where he was observed to be [...] Oral AT BEDTIME PRN ??? influenza vaccine [id number] (PF) (FLUZONE) 45 mcg (15 mcg x [...] Fingerstick 254 (*) 70 - 100 (mg/dl) Airplane Pilot Photogrammetry ID [id number] GLUCOSE, GLUCOMETER Collection Time 04/08/11 1722 Component Value Range Glucose, Fingerstick 163 (*) 70 - 100 (mg/dl) Airplane Pilot Photogrammetry ID [id number] GLUCOSE, GLUCOMETER Collection Time 04/08/11 2104 Component Value Range Glucose, Fingerstick 228 (*) 70 - 100 (mg/dl) Airplane Pilot Photogrammetry ID [id number] GLUCOSE, GLUCOMETER Collection Time 04/09/11 0759 Component Value Range Glucose, Fingerstick 177 (*) 70 - 100 (mg/dl) Airplane Pilot Photogrammetry ID [id number] Other studies:N/A Assessment/Formulation: Mr. Shahnaz Santiago is a 60-year-old male with a past psychiatric history of major depression with onset following the of his in August of 2009, admitted after a serious intentional overdose. The patient was discharged from the [facility] on 03/19/11 after a two week stay for Depressive symptoms. The patient is currently midcycle through his first course of ECT. The patient isimproved from the time of admission. Depressed mood persists, but thoughts of are fewer. Affect is improved from admission. Trough Nortriptyline level is 87, which is within the therapeutic concentration. Patient plans to continue with tri-weekly ECT treatments. Diagnosis: Dresden I: Major Depression, single episode, with psychotic features. Dresden II: Deferred Dresden III: HTN, CAD s/p PCI with stent, [...] the resident's note. MARY JAUREGUI MD Pager [phone] Attending, Inpatient Psychiatry, [facility] * Fantasma Barrera. - 04/08/2011 1929 [...] Continues much more agreeable today. Social, cooperative. embedded nurse moo, slept 4.5 h, adding Ambien works. [...] mgmt, weekend plan. MARY JAUREGUI MD Pager [phone] Attending, Inpatient Psychiatry, [facility] . * Nixon Schwartz, [facility] - 04/08/2011 1424 EST [facility] Electroconvulsive Therapy Service Cognition & Depression Rating Date of Service: 04/08/2011 Time: 1400 Duration of Service: 20 minutes Folstein MMSE Total Score (Max. Total=27): 27 Level of Consciousness: Alert. Reasoning: intact Judgement: fair Fund of Knowledge: account maintenance representative Diagnosis code: 296.34 Total MADRS Score [...] EST S/O:Pt attended Leisure group, utilizing the [employer] for leisure, recreation and relaxation. PT was [...] of treatment plan. MARY JAUREGUI MD Pager [phone] Attending, Inpatient Psychiatry, [facility] . * Stacy Holder - 04/07/2011 1633 EST Grief and Anger Group: S/O: Pt participated in the discussion of losses and spoke about the of his , his resignation from his job, and his move to [place]. Pt able to identify that watching his [...] * Lele Daley MD PhD - 04/06/2011 0821 EST 04/06/2011 ATTENDING MATERIALS BUYER NOTE PROBLEM (ID and CC): depression HOSPITAL [...] % 3 mL Intravenous Q8H influenza vaccine [id number] (PF) 0.5 mL Intramuscular ONCE nortriptyline 100 [...] his shoulder. Lele Daley MD,PHD Attending Psychiatrist aviation electronics technician Pager [phone] * Lele Daley MD PhD - 04/05/2011 0643 EST 04/05/2011 ATTENDING MATERIALS BUYER NOTE PROBLEM (ID and CC): depression HOSPITAL [...] % 3 mL Intravenous Q8H influenza vaccine [id number] (PF) 0.5 mL Intramuscular ONCE nortriptyline 100 [...] his shoulder. Lele Daley MD,PHD Attending Psychiatrist aviation electronics technician Pager [phone] * hernesto Nixon, [facility] - 04/04/2011 1444 EST [facility] Electroconvulsive Therapy Service Cognition & Depression Rating Date of Service: 04/04/2011 Time: 1200 Duration of Service: 20 minutes Folstein MMSE Total Score (Max. Total=27): 27 Level of Consciousness: Alert. Reasoning: intact Judgement: fair Fund of Knowledge: account maintenance representative Diagnosis code: 296.34 Total MADRS Score [...] in last elaina. EXAM: Dressed in tshirt [place] and akila pants. Sitting on bed, head [...] of treatment planning. MARY JAUREGUI MD Pager [phone] Attending, Inpatient Psychiatry, [facility] . * Benito Lainez RN - [...] continue to participate in groups. * Mary Jauregiu MD - 04/03/2011 1640 EST 04/03/2011 ATTENDING NOTE PROBLEM (ID and CC): Depression HOSPITAL DAY: LOS: 12 days HISTORY: Nursing reports more pleasant with night RN and in horse buyer shift. Irritable other parts of day, jimmy [...] of treatment planning. MARY JAUREGUI MD Pager [phone] Attending, Inpatient Psychiatry, [facility] . * Stacy Holder Elvis - 04/03/2011 1503 EST Writing for Health Group: S/O: Pt was sitting in the Group/ TV room finishing his lunch when the group started. 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 [...] CARE NOTE Re: Shahnaz Santiago Patient is Roman Catholic and has been Anointed with the Sacrament of the Sick. Date 04/02/2011 Page or Referral ? - Referral Time of Page/Call - 1202 Location - Sp3 Sacraments given: - Follow up necessary - Yes Comfort Care / End of Life - No Note: Shahnaz requested a cnc mill programmer visit. When I arrived he was feeling ill and did not want to see anyone. He was told that this cnc mill programmer will return tomorrow. Signed Warren Pittslivan Roman Catholic Java Security Architect Pager [phone] * Mary Jauregui MD - 04/02/2011 0854 [...] 3 mL Intravenous Q8H ??? influenza vaccine [id number] (PF) (FLUZONE) 45 mcg (15 mcg x [...] Fingerstick 187 (*) 70 - 100 (mg/dl) Airplane Pilot Photogrammetry ID [id number] GLUCOSE, GLUCOMETER Collection Time 04/01/11 1703 Component Value Range Glucose, Fingerstick 200 (*) 70 - 100 (mg/dl) Airplane Pilot Photogrammetry ID [id number] GLUCOSE, GLUCOMETER Collection Time 04/01/11 2119 Component Value Range Glucose, Fingerstick 264 (*) 70 - 100 (mg/dl) Airplane Pilot Photogrammetry ID [id number] GLUCOSE, GLUCOMETER Collection Time 04/02/11 0803 Component Value Range Glucose, Fingerstick 130 (*) 70 - 100 (mg/dl) Airplane Pilot Photogrammetry ID [id number] Other studies:N/A Serum Nortriptyline level still pending. Assessment/Formulation: Mr. Shahnaz Santiago is a 60-year-old male with a past psychiatric history of major depression with onset following the of his in August of 2009, admitted after a serious intentional overdose. The patient was discharged from the [facility] on 03/19/11 after a two week stay for Depressive symptoms. The patient underwent his first course of ECT last and was found to be improved. The patient underwent ECT today. Depressed mood and thoughts of persist, but affect is slightly improved from admission. Trough Nortriptyline level is still pending. Patient plans to continue with tri- weekly ECT treatments. Diagnosis: Dresden I: Major Depression, single episode, with psychotic features. Dresden II: Deferred Dresden III: HTN, CAD s/p PCI with stent, [...] the resident's note. MARY JAUREGUI MD Pager [phone] Attending, Inpatient Psychiatry, [facility] * Dewayne De León - 04/01/2011 9213 EST Cognitive Processes S/O: Reluctantly, patient read [...] participation * Mary Jauregui MD - 04/01/2011 1358 EST Inpatient Psychiatry Daily Progress Note 04/01/2011 [...] The patient was recently discharged from the [facility] on 03/19/11 after a two week [...] 3 mL Intravenous Q8H ??? influenza vaccine [id number] (PF) (FLUZONE) 45 mcg (15 mcg x [...] Fingerstick 109 (*) 70 - 100 (mg/dl) Airplane Pilot Photogrammetry ID [id number] GLUCOSE, GLUCOMETER Collection Time 03/31/11 2047 Component Value Range Glucose, Fingerstick 334 (*) 70 - 100 (mg/dl) Airplane Pilot Photogrammetry ID [id number] GLUCOSE, GLUCOMETER Collection Time 04/01/11 0800 Component Value Range Glucose, Fingerstick 146 (*) 70 - 100 (mg/dl) Airplane Pilot Photogrammetry ID [id number] GLUCOSE, GLUCOMETER Collection Time 04/01/11 1154 Component Value Range Glucose, Fingerstick 187 (*) 70 - 100 (mg/dl) Airplane Pilot Photogrammetry ID [id number] Other studies:N/A Trough Nortriptyline level is in progress. Assessment/Formulation: Mr. Shahnaz Santiago is a 60-year-old male with a past psychiatric history of major depression with onset following the of his in August of 2009, admitted after a serious intentional overdose. The patient was discharged from the [facility] on 03/19/11 after a two week stay for Depressive symptoms. The patient underwent his first course of ECT last and was found to be improved. The patient plans to resume ECT tomorrow. Depressed mood and thoughts of persist, butaffect is slightly improved from admission. Trough Nortriptyline level is still pending. Diagnosis: Dresden I: Major Depression, single episode, with psychotic features. Dresden II: Deferred Dresden III: HTN, CAD s/p PCI with stent, [...] the resident's note. MARY JAUREGUI MD Pager [phone] Attending, Inpatient Psychiatry, [facility] * Pastora Humphreys - 03/31/2011 1655 EST Social Work Progress Note Intervention/Service: Coordination of care The patient's daughter received permission from the court for the patient to proceed with ECT treatment. Dr. Jauregui will fax the consent form to the court on the morning of 04/01 as per the project accountant's request. The patient may receive ECT late in on Sunday 04/01 but more likely on Thursday. The patient's daughter, Nkechi, was frustrated by miscommunication between the court, nursing and Dr. Jauregui regarding facilitating communication between Dr. Jauregui and the project accountant. Spoke to Nkechi, the patient's daughter, and let her know that Dr. Jauregui was able to speak with the project accountant before he left and that he was [...] The patient was recently discharged from the [facility] on 03/19/11 after a two week [...] 3 mL Intravenous Q8H ??? influenza vaccine [id number] (PF) (FLUZONE) 45 mcg (15 mcg x [...] Fingerstick 257 (*) 70 - 100 (mg/dl) Airplane Pilot Photogrammetry ID [id number] GLUCOSE, GLUCOMETER Collection Time 03/30/11 1654 Component Value Range Glucose, Fingerstick 171 (*) 70 - 100 (mg/dl) Airplane Pilot Photogrammetry ID [id number] GLUCOSE, GLUCOMETER Collection Time 03/30/11 2058 Component Value Range Glucose, Fingerstick 238 (*) 70 - 100 (mg/dl) Airplane Pilot Photogrammetry ID [id number] GLUCOSE, GLUCOMETER Collection Time 03/31/11 0839 Component Value Range Glucose, Fingerstick 128 (*) 70 - 100 (mg/dl) Airplane Pilot Photogrammetry ID [id number] Other studies:N/A Assessment/Formulation: Mr. Shahnaz Santiago is a 60-year-old male with a past psychiatric history of major depression with onset following the of his in August of 2009, admitted after a serious intentional overdose. This is the third lifetime hospitalization for Mr. Santiago, who was discharged from the [facility] on 03/19/11 after a two week stay for Depressive symptoms. The patient underwent his first course of ECT last and was found to be improved. Late in the afternoon, the Attending did speak with a Bulk Delivery Driver whereby the Legal parameters appear to be resolved. The patient has been without acute events. Depressed mood and thoughts of persist, but affect is slightly improved from admission. The patient is less isolative. No medication changes planned for today. Plan to continue ECT, with next treatment Thursday. Attending Discussed with Joseph [facility] [phone] and he amended guardianship order to include ECT. Faxed to unit. ECT team notified. Will put pato on schedule for Thursday. Diagnosis: Dresden I: Major Depression, single episode, with psychotic features. Dresden II: Deferred Dresden III: HTN, CAD s/p PCI with stent, [...] the resident's note. MARY JAUREGUI MD Pager [phone] Attending, Inpatient Psychiatry, [facility] * Karina Luu MD - 03/30/2011 1141 EST 03/30/2011 ATTENDING MATERIALS BUYER NOTE REASON FOR HOSPITALIZATION: Depression HOSPITAL DAY: [...] treatment team. KARINA LUU MD Attending Psychiatrist aviation electronics technician Pager [phone] * Karina Luu MD - 03/29/2011 0816 EST 03/29/2011 ATTENDING MATERIALS BUYER NOTE REASON FOR HOSPITALIZATION: Depression HOSPITAL DAY: [...] treatment team. KARINA LUU MD Attending Psychiatrist aviation electronics technician Pager [phone] * Yenny Brumfield - 03/28/2011 1531 EST [...] done. * Mary Jauregui MD - 03/28/2011 0935 EST Inpatient Psychiatry Daily Progress Note 03/28/2011 [...] The patient was recently discharged from the [facility] on 03/19/11 after a two week [...] 3 mL Intravenous Q8H ??? influenza vaccine [id number] (PF) (FLUZONE) 45 mcg (15 mcg x [...] Fingerstick 227 (*) 70 - 100 (mg/dl) Airplane Pilot Photogrammetry ID [id number] GLUCOSE, GLUCOMETER Collection Time 03/27/11 1446 Component Value Range Glucose, Fingerstick 224 (*) 70 - 100 (mg/dl) Airplane Pilot Photogrammetry ID [id number] GLUCOSE, GLUCOMETER Collection Time 03/27/11 1711 Component Value Range Glucose, Fingerstick 200 (*) 70 - 100 (mg/dl) Airplane Pilot Photogrammetry ID [id number] GLUCOSE, GLUCOMETER Collection Time 03/27/11 2110 Component Value Range Glucose, Fingerstick 175 (*) 70 - 100 (mg/dl) Airplane Pilot Photogrammetry ID [id number] GLUCOSE, GLUCOMETER Collection Time 03/28/11 0815 Component Value Range Glucose, Fingerstick 119 (*) 70 - 100 (mg/dl) Airplane Pilot Photogrammetry ID [id number] Other studies:N/A Assessment/Formulation: Mr. Shahnaz Santiago is a 60-year-old male with a past psychiatric history of major depression with onset following the of his in August of 2009, admitted after a serious intentional overdose. This is the third lifetime hospitalization for Mr. Santiago, who was discharged from the [facility] on 03/19/11 after a two week [...] visit to court. ECT postponed Thu. Diagnosis: Dresden I: Major Depression, single episode, with psychotic features. Dresden II: Deferred Dresden III: HTN, CAD s/p PCI with stent, [...] the resident's note. MARY JAUREGUI MD Pager [phone] Attending, Inpatient Psychiatry, [facility] * Yenny Brumfield - 03/27/2011 194 EST Games Group: S/O: Pt joined in game of [employer]. He had not played before, although he [...] The patient was recently discharged from the [facility] on 03/19/11 after a two week [...] 3 mL Intravenous Q8H ??? influenza vaccine [id number] (PF) (FLUZONE) 45 mcg (15 mcg x [...] Fingerstick 186 (*) 70 - 100 (mg/dl) Airplane Pilot Photogrammetry ID [id number] GLUCOSE, GLUCOMETER Collection Time 03/26/11 1717 Component Value Range Glucose, Fingerstick 160 (*) 70 - 100 (mg/dl) Airplane Pilot Photogrammetry ID [id number] GLUCOSE, GLUCOMETER Collection Time 03/26/11 2101 Component Value Range Glucose, Fingerstick 259 (*) 70 - 100 (mg/dl) Airplane Pilot Photogrammetry ID [id number] GLUCOSE, GLUCOMETER Collection Time 03/27/11 0141 Component Value Range Glucose, Fingerstick 194 (*) 70 - 100 (mg/dl) Airplane Pilot Photogrammetry ID [id number] GLUCOSE, GLUCOMETER Collection Time 03/27/11 0804 Component Value Range Glucose, Fingerstick 162 (*) 70 - 100 (mg/dl) Airplane Pilot Photogrammetry ID [id number] GLUCOSE, GLUCOMETER Collection Time 03/27/11 1152 Component Value Range Glucose, Fingerstick 227 (*) 70 - 100 (mg/dl) Airplane Pilot Photogrammetry ID [id number] Other studies:N/A Assessment/Formulation: Mr. Shahnaz Santiago is a 60-year-old male with a past psychiatric history of major depression with onset following the of his in August of 2009, admitted after a serious intentional overdose. This is the third lifetime hospitalization for Mr. Santiago, who was discharged from the [facility] on 03/19/11 after a two week [...] increase in his dosage of Perphenazine. Diagnosis: Dresden I: Major Depression, single episode, with psychotic features Dresden II: deferred Dresden III: HTN, CAD s/p PCI with stent, [...] session of ECT. MARY JAUREGUI MD Pager [phone] Attending, Inpatient Psychiatry, [facility] * Danyell Salmeron - 03/27/2011 1117 [...] continue to participate in groups. * [facility] 03/26/2011 1524 EST [facility] Electroconvulsive Therapy Service Cognition & Depression Rating Date of Service: 03/26/2011 Time: 1400 Duration of Service: 40 minutes Folstein MMSE Total Score (Max. Total=27): 26 Level of Consciousness: Alert. Reasoning: intact abstraction Judgement: poor Fund of Knowledge: account maintenance representative Diagnosis code: 296.34 Total MADRS Score [...] The patient was recently discharged from the [facility] on 03/19/11 after a two week [...] Medications Medication Route Frequency ??? influenza vaccine [id number] (PF) (FLUZONE) 45 mcg (15 mcg x [...] Fingerstick 240 (*) 70 - 100 (mg/dl) Airplane Pilot Photogrammetry ID [id number] GLUCOSE, GLUCOMETER Collection Time 03/25/11 1653 Component Value Range Glucose, Fingerstick 171 (*) 70 - 100 (mg/dl) Airplane Pilot Photogrammetry ID [id number] GLUCOSE, GLUCOMETER Collection Time 03/25/11 2052 Component Value Range Glucose, Fingerstick 299 (*) 70 - 100 (mg/dl) Airplane Pilot Photogrammetry ID [id number] GLUCOSE, GLUCOMETER Collection Time 03/26/11 0810 Component Value Range Glucose, Fingerstick 121 (*) 70 - 100 (mg/dl) Airplane Pilot Photogrammetry ID [id number] Other studies:N/A Assessment/Formulation: Mr. Shahnaz Santiago is a 60-year-old male with a past psychiatric history of major depression with onset following the of his in August of 2009, admitted involuntarily after ingesting #27 10 mg Zolpidem tablets in attempt to suicide. This is the third lifetime hospitalization for Mr. Santiago, who was discharged from the [facility] on 03/19/11 after a two week [...] ECT treatment. No medication changes today. Diagnosis: Dresden I: Major Depression, single episode, with psychotic features Dresden II: deferred Dresden III: HTN, CAD s/p PCI with stent, [...] the resident's note. MARY JAUREGUI MD Pager [phone] Attending, Inpatient Psychiatry, [facility] * Dewayne De León - 03/25/2011 [...] The [facility] [facility] two week [...] Medications Medication Route Frequency ??? influenza vaccine [id number] (PF) (FLUZONE) 45 mcg (15 mcg x [...] Fingerstick 237 (*) 70 - 100 (mg/dl) Airplane Pilot Photogrammetry ID [id number] GLUCOSE, GLUCOMETER Collection Time 03/25/11 0924 Component Value Range Glucose, Fingerstick 153 (*) 70 - 100 (mg/dl) Airplane Pilot Photogrammetry ID [id number] GLUCOSE, GLUCOMETER Collection Time 03/25/11 1157 Component Value Range Glucose, Fingerstick 240 (*) 70 - 100 (mg/dl) Airplane Pilot Photogrammetry ID [id number] GLUCOSE, GLUCOMETER Collection Time 03/25/11 1653 Component Value Range Glucose, Fingerstick 171 (*) 70 - 100 (mg/dl) Airplane Pilot Photogrammetry ID [id number] Other studies:N/A Assessment/Formulation: Mr. Shahnaz Santiago is a 60-year-old male with a past psychiatric history of major depression with onset following the of his in August of 2009, admitted involuntarily after ingesting #27 10 mg Zolpidem tablets in attempt to suicide. This is the third lifetime hospitalization for Mr. Santiago, who was discharged from the [facility] [place] [facility] on 03/19/11 after a two week [...] is very likely appropriate for ECT. Diagnosis: Dresden I: Major Depression, single episode, with psychotic features Dresden II: deferred Dresden III: HTN, CAD s/p PCI with stent, [...] the resident's note. MARY JAUREGUI MD Pager [phone] Attending, Inpatient Psychiatry, [facility] * Katarzyna Rincon [facility] - 03/25/2011 8090 EST Psychosocial Assessment Presenting Problems: 60 year [...] and that he wants to be in [place] to be close to his daughter and grandchildren. He thought about the harm a suicide would do to his family and he said, I don't want to go out like that. Current Living Situation/Housing: Has an apartment in [place], [place]. Family/Support System and Contact Telephone Numbers: Daughter and grandchildren in the area. Daughter -Nkechi Weber [phone]. Family Constellation/Pertinent Family History: Raised in [place]. Father was an alcoholic. Moved in [place] in the 70s and then later moved to [place] with second who Shahnaz describes as sarcastic. Johanna in 2009 of cancer. Mr. Santiago has come to [place] from [place] to be closer to his daughter and her family. Other Social Supports: Very limited in this area. Education/Employment Financial: Technical training Substance Abuse and Treatment History: None currently - stopped many years ago. Mental Health Treatment History: Further assessment needed. Wants a referral to [facility]. Mental Health and Other Providers: Referral to [facility] Legal Issues: None known Spiritual/Mu-Ism/Cultural Considerations: Not known - further assessment needed. [...] for work atthis time. 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 Recently lost [...] EST S/O:Pt attended Leisure group utilizing the [employer] for recreation, relaxation and socialization. Pt appeared [...] groups. * Mary Jauregui MD - 03/24/2011 2540 EST Inpatient Psychiatry Daily Progress Note 03/24/2011 [...] Mr. Santiago, who was discharged from the [facility] [place] [facility] on 03/19/11 after a two week [...] acute concerns. Phone conference call with daughter. LOTTIE discharge was related to plan hehad with daughter to seek help elsewhere. Past Family/Social History Update: The Attending and Social Work did talk with the patient's daughter whereby collateral information was obtained. Current Facility-Administered Medications Medication Route Frequency ??? influenza vaccine [id number] (PF) (FLUZONE) 45 mcg (15 mcg x [...] Fingerstick 170 (*) 70 - 100 (mg/dl) Airplane Pilot Photogrammetry ID [id number] GLUCOSE, GLUCOMETER Collection Time 03/24/11 0907 Component Value Range Glucose, Fingerstick 138 (*) 70 - 100 (mg/dl) Airplane Pilot Photogrammetry ID [id number] URINALYSIS Collection Time 03/24/11 0922 Component Value Range Color, UA Yellow Clarity, UA Clear Glucose, UA Neg Neg Bilirubin, UA Neg Neg Ketones, UA Neg Neg Specific [place], Urine 1.010 1.001 - 1.035 Blood, UA [...] Fingerstick 236 (*) 70 - 100 (mg/dl) Airplane Pilot Photogrammetry ID [id number] GLUCOSE, GLUCOMETER Collection Time 03/24/11 1652 Component Value Range Glucose, Fingerstick 251 (*) 70 - 100 (mg/dl) Airplane Pilot Photogrammetry ID [id number] Other studies:N/A Assessment/Formulation: Mr. Shahnaz Santiago is a 60-year-old male with a past psychiatric history of major depression with onset following the of his in August of 2009, admitted involuntarily after ingesting #27 10 mg Zolpidem tablets in attempt to suicide. This is the third lifetime hospitalization for Mr. Santiago, who was discharged from the [facility] [place] [facility] on 03/19/11 after a two week stay for Depressive symptoms. He endorses Depressed mood today, but denies suicidal ideation. He is appropriate for conversion to voluntary status. ECT consultation is placed. The Nortriptyline will be increased to 100 mg. will defer Neuro workup/head imaging at this time as the presentation seems c/w MDE. Will reass ess as appropriate. Diagnosis: Dresden I: Major Depression, single episode, with psychotic features Dresden II: deferred Dresden III: HTN, CAD s/p PCI with stent, [...] the resident's note. MARY JAUREGUI MD Pager [phone] Attending, Inpatient Psychiatry, [facility] * Dewayne De León - 03/24/2011 [...] Navid Gutierrez MD - 03/23/2011 1207 EST psychiatry resident on-call note Date: 03/23/2011 Time: 12:07 BP [...] Stanford, Psychiatry attending MD. Navid Gutierrez MD #[id number] * Olegario (At)Tramaine - 03/23/2011 0841 EST Department of Psychiatry-Inpatient Psychiatry Activities Therapy Assessment Diagnosis: Multiaxial Diagnostic Impression (including Differential Diagnosis) Dresden I: Major Depression, single episode, with psychotic features Dresden II: deferred Dresden III: HTN, CAD s/p PCI with stent, type II DM, h/o nephrolithiasis, s/p cholecystectomy Dresden IV: , unemployed, recently relocated, lives alone Dresden V: 21-30 behavior considerably influenced by delusions [...] Stanford MD - 03/23/2011 0835 EST ATTENDING MATERIALS BUYER NOTE REASON FOR HOSPITALIZATION: Depression. HOSPITAL DAY: LOS: 1 day INTERIM HISTORY: Trazodone for sleep. Cooperative with care. See admission note for complete history, etc. BP 170/93 Pulse 77 Temp(Src) 35.6 ??C (96.1 ??F) (Tympanic) Ht 185.4 cm (72.99) Wt 101.969kg (224 lb 12.8 oz) BMI 29.67 kg/m2 ASSESSMENT: See admission note. PLAN: See admission note. SAJAN STANFORD MD Attending Psychiatrist aviation electronics technician Pager [phone] documented in this encounter H&P Notes * Sajan Stanford MD - 03/22/2011 1907 EST Inpatient Admission Psychiatric Evaluation Admit Date: 03/22/2011 Date Of service: 03/22/2011 Referral source: [facility] Outpatient providers: Huang Welsh NP PCP: Dr. Sevilla Information Obtained from: patient, patient's daughter, paperwork, [facility] records Legal Status: Admission is involuntary [...] Mr. Santiago, who was discharged from the [facility] [place] [facility] on 03/19/11 after a two week [...] ultimately requiring voluntary inpatient psychiatric treatment in [place], [place], where Mr. Santiago and his had lived for many years. During that admission, Mr. Santiago was started on a regimen including duloxetine and mirtazapine. In May of 2010, at the end of that stay, Mr. Santiago's daughter travelled to [place], helped him sell his home, and moved him and his belongings to [place], where she rented an apartment in [place]. 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 Santiago has appeared progressively aimless and lacking in motivation. 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 Santiago has begun to sleep late and has become socially isolated. He seems hopeless and unhappy. In mid-February, when Mr. Sals symptoms became intolerable, he was assessed by a turbinated bone grinder at [facility], where he answered affirmatively to questions about suicidal ideation. An admission to the [facility] was arranged, and under the care of Dr. Banegas, Mr. Sals regimen was changed, and in place of duloxetine and mirtazapine, perphenazine, nortriptyline, and zolpidem were started. On 03/19/11, two weeks after admission, Mr. Santiago discharged against medical advice. That evening, he was transported to the [facility] ED again by his daughter, who was impressed with the intensityof her father's symptoms. He again underwent Crisis assessment. Mr. Santiago was discharged home, but was readmitted to [facility] the following morning (03/21/11) after being [...] Source: unemployed : none Legal history: None Alevism: did not discuss Ethnic and Cultural factors: none Other requests: none Significant Developmental / Childhood/ Social history: Raised in [place]. Had an alcoholic father. Moved to [place] in the 70s. Later moved to [place] with his second (Johanna), who was reportedly [...] Fingerstick 215 (*) 70 - 100 (mg/dl) Airplane Pilot Photogrammetry ID [id number] Physical Exam: General appearance: alert, slowed mentation, [...] for educational level Short Term Memory: intact Glass Melt Operator Memory: intact Capacity for Abstraction: intact Assessment: [...] presentation. Multiaxial Diagnostic Impression (including Differential Diagnosis) Dresden I: Major Depression, single episode, with psychotic features Dresden II: deferred Dresden III: HTN, CAD s/p PCI with stent, type II DM, h/o nephrolithiasis, s/p cholecystectomy Dresden IV: , unemployed, recently relocated, lives alone Dresden V: 21-30 behavior considerably influenced by delusions [...] sent along with the clinician's EE paperwork. [facility] should be contacted to obtain this. [...] documented in this encounter Procedure Notes * Tearoom Hostess, Scan - 05/13/2011 0839 ESTAssociated Order(s): ECG REPORT - SCANNED * Tearoom Hostess, Scan - 04/07/2011 0808 ESTAssociated Order(s): ECG REPORT - SCANNED * Tearoom Hostess, Scan - 03/26/2011 0711 ESTAssociated Order(s): ECG REPORT - SCANNED documented in this encounter Consult Notes * Benito Mejia RD - 04/04/2011 1444 ESTAssociated Order(s): CONSULT NUTRITION Nutrition consult for [...] and follow up BENITO MEJIA RD Pager [phone] * Juwan Walter MD - 03/26/2011 7605 EST PSYCHIATRIC CONSULT SERVICE DATE: 03/26/2011 IDENTIFYING DATA: A 60-year-old white male living in [place], [place] over the last year, moving from [place] to [place] to be near a daughter and grandchildren. He is since last August. He had worked in [employer] until last May. HISTORY OF PRESENT [...] He then was hospitalized in June in [place] into a mental health unit. He was placed on Cymbalta and Remeron. He decided to move to [place] to be with hisdaughter. His daughter, however, moved from [place] to [facility] in the fall for a child togo to school and that was another loss. He describes that he was isolating, having a hard time functioning. He was next hospitalized in [facility] in February. He was there for approximately2 weeks, being placed on nortriptyline and perphenazine. After 2 weeks, he was discharged against medical advice, though apparently with daughter's intent to have him involved in a different treatment setting, perhaps in [facility] or [facility] [place]. He describes, while staying at a hotel [...] treated with depression. DEVELOPMENTAL HISTORY: Raised in [place], having an older brother who several years [...] fashion. He is oriented to 03/26, April Fieldoo. IMPRESSION Dresden I: Major depressive disorder, chronic, recurrent, possibly with somatic delusions. Dresden II: Deferred. Dresden III: Status post zolpidem overdose, history of cardiac stents, diabetes mellitus. Dresden IV: Stressors moderate, related isolation, loss of . Dresden V: 35. This patient describes long history [...] right unilateral mode. TIME SPENT: Forty-five minutes [id number], all of which was spent reviewing the above history anddeveloping the treatment plan. Juwan Walter MD 10 31 AM / Juwan Walter MD cs Confirmation: [id number] Dictation ID: [id number] documented in this encounter OR Notes * Anesthesia Preprocedure Evaluation - Tearoom Hostess, Scan - 05/13/2011 0839 EST * Anesthesia Procedure Notes - Tearoom Hostess, Scan - 05/02/2011 0934 EST * Anesthesia Procedure Notes - Tearoom Hostess, Scan - 04/28/2011 0931 EST * Anesthesia Procedure Notes - Tearoom Hostess, Scan - 04/25/2011 0920 EST * Anesthesia Procedure Notes - Tearoom Hostess, Scan - 04/23/2011 0909 EST * Anesthesia Procedure Notes - Tearoom Hostess, Scan - 04/18/2011 0850 EST * Anesthesia Procedure Notes - Tearoom Hostess, Scan - 04/16/2011 0958 EST * Anesthesia Procedure Notes - Tearoom Hostess, Scan - 04/09/2011 0951 EST * Anesthesia Procedure Notes - Tearoom Hostess, Scan - 04/08/2011 0943 EST * Anesthesia Procedure Notes - Tearoom Hostess, Scan - 04/07/2011 1043 EST * Anesthesia Procedure Notes - Tearoom Hostess, Scan - 04/04/2011 0938 EST * Anesthesia Procedure Notes - Tearoom Hostess, Scan - 04/02/2011 0915 EST * Anesthesia Procedure Notes - Tearoom Hostess, Scan - 03/27/2011 1013 EST documented in this encounter Miscellaneous Notes * Scanned Note-Null - Tearoom Hostess, Scan - 05/13/2011 0839 EST * Scanned Note-Null - Tearoom Hostess, Scan - 05/13/2011 0839 EST * Scanned Note-Null - Tearoom Hostess, Scan - 05/13/2011 0839 EST * Scanned Note-Null - Tearoom Hostess, Scan - 05/13/2011 0839 EST * Scanned Note-Null - Tearoom Hostess, Scan - 05/13/2011 0839 EST * Plan of Care - Tearoom Hostess, Scan - 05/13/2011 0839 EST * Scanned Note-Null - Tearoom Hostess, Scan - 05/09/2011 1337 EST * Plan of Care - Ivett Michel RN - 05/05/2011 0545 EST Problem: ALTERATION IN SLEEP Goal: Reports Nightly Sleep, Duration And Quality Outcome: Not Met This Shift Active Multi-Disciplinary problems: ALTERED THOUGHT PROCESSES [524333] (03/22/11) ALTERATION IN SLEEP [986930] (03/23/11) KNOWLEDGE DEFICIT [364506] (04/07/11) NUTRITION [231018] (04/07/11) RISK FOR INFECTION [127587] (04/07/11) GLYCEMIA IMBALANCE [779934] (04/07/11) ANXIETY [430895] (04/09/11) Ineffective Coping [430181] (04/09/11) SELF CARE DEFICIT [560580] (04/09/11) ALTERATION IN MOOD [623144] (04/09/11) Discharge Planning [249373] (04/27/11) Data: See observation record. Action: Continued [...] behavior Active Multi-Disciplinary problems: ALTERED THOUGHT PROCESSES [404378] (03/22/11) ALTERATION IN SLEEP [562190] (03/23/11) KNOWLEDGE DEFICIT [683273] (04/07/11) NUTRITION [185909] (04/07/11) RISK FOR INFECTION [909935] (04/07/11) GLYCEMIA IMBALANCE [453644] (04/07/11) ANXIETY [725868] (04/09/11) Ineffective Coping [586479] (04/09/11) SELF CARE DEFICIT [558319] (04/09/11) ALTERATION IN MOOD [401848] (04/09/11) Discharge Planning [028968] (04/27/11) Data: The patient denies SI and [...] of Care - Christina Torres - 05/03/2011 5519 EST Problem: ALTERED THOUGHT PROCESSES Goal: Desires [...] reasons Active Multi-Disciplinary problems: ALTERED THOUGHT PROCESSES [622929] (03/22/11) ALTERATION IN SLEEP [852464] (03/23/11) KNOWLEDGE DEFICIT [562843] (04/07/11) NUTRITION [920384] (04/07/11) RISK FOR INFECTION [684062] (04/07/11) GLYCEMIA IMBALANCE [407151] (04/07/11) ANXIETY [293090] (04/09/11) Ineffective Coping [331789] (04/09/11) SELF CARE DEFICIT [640711] (04/09/11) ALTERATION IN MOOD [496067] (04/09/11) Discharge Planning [085142] (04/27/11) Data: pt watched tv in the [...] EST Active Multi-Disciplinary problems: ALTERED THOUGHT PROCESSES [576918] (03/22/11) ALTERATION IN SLEEP [917230] (03/23/11) KNOWLEDGE DEFICIT [505240] (04/07/11) NUTRITION [967211] (04/07/11) RISK FOR INFECTION [048041] (04/07/11) GLYCEMIA IMBALANCE [568022] (04/07/11) ANXIETY [565189] (04/09/11) Ineffective Coping [611639] (04/09/11) SELF CARE DEFICIT [557941] (04/09/11) ALTERATION IN MOOD [087984] (04/09/11) Discharge Planning [167103] (04/27/11) Data: Pt slept in much of [...] Ongoing Active Multi-Disciplinary problems: ALTERED THOUGHT PROCESSES [774861] (03/22/11) ALTERATION IN SLEEP [253649] (03/23/11) KNOWLEDGE DEFICIT [101099] (04/07/11) NUTRITION [323052] (04/07/11) RISK FOR INFECTION [086577] (04/07/11) GLYCEMIA IMBALANCE [569594] (04/07/11) ANXIETY [301743] (04/09/11) Ineffective Coping [276638] (04/09/11) SELF CARE DEFICIT [076393] (04/09/11) ALTERATION IN MOOD [511216] (04/09/11) Discharge Planning [699893] (04/27/11) Data: Was npo for ECT this [...] Unilateral Dosing Protocol: 0.3 ms Pulse-width Protocol ([facility]) Pulse width: 0.3 msec Frequency: 50 [...] reasons Active Multi-Disciplinary problems: ALTERED THOUGHT PROCESSES [568778] (03/22/11) ALTERATION IN SLEEP [814368] (03/23/11) KNOWLEDGE DEFICIT [544088] (04/07/11) NUTRITION [715087] (04/07/11) RISK FOR INFECTION [624147] (04/07/11) GLYCEMIA IMBALANCE [941372] (04/07/11) ANXIETY [761941] (04/09/11) Ineffective Coping [523140] (04/09/11) SELF CARE DEFICIT [109456] (04/09/11) ALTERATION IN MOOD [152904] (04/09/11) Discharge Planning [952775] (04/27/11) Data: pt awake at beginning of scene shifter watching tv. Received ambien at midnight. Pt npo since midnight. He was in bed and asleep by 0130 and appeared to sleep for the rest of the night. Action: monitored on routine observations Response: pt sleeping, no signs of distress. Cyndie Redman RN 05/02/2011 6:58 * Plan of Care - Dahlia Hernández - 05/01/2011 2132 EST Active Multi-Disciplinary problems: ALTERED THOUGHT PROCESSES [752958] (03/22/11) ALTERATION IN SLEEP [035852] (03/23/11) KNOWLEDGE DEFICIT [315142] (04/07/11) NUTRITION [562665] (04/07/11) RISK FOR INFECTION [409295] (04/07/11) GLYCEMIA IMBALANCE [940483] (04/07/11) ANXIETY [887776] (04/09/11) Ineffective Coping [107675] (04/09/11) SELF CARE DEFICIT [101994] (04/09/11) ALTERATION IN MOOD [490870] (04/09/11) Discharge Planning [432610] (04/27/11) Data: Pt prepared for ECT, npo [...] reasons Active Multi-Disciplinary problems: ALTERED THOUGHT PROCESSES [929021] (03/22/11) ALTERATION IN SLEEP [204575] (03/23/11) KNOWLEDGE DEFICIT [404070] (04/07/11) NUTRITION [087821] (04/07/11) RISK FOR INFECTION [860007] (04/07/11) GLYCEMIA IMBALANCE [561838] (04/07/11) ANXIETY [859652] (04/09/11) Ineffective Coping [842730] (04/09/11) SELF CARE DEFICIT [000712] (04/09/11) ALTERATION IN MOOD [899923] (04/09/11) Discharge Planning [192263] (04/27/11) Data: Pt in TV room at [...] Care - Zamzam Sher RN - 04/30/2011 6125 EST Problem: ALTERATION IN MOOD Goal: Desires Improved Mood Outcome: Ongoing Active Multi-Disciplinary problems: ALTERED THOUGHT PROCESSES [294181] (03/22/11) ALTERATION IN SLEEP [311747] (03/23/11) KNOWLEDGE DEFICIT [903145] (04/07/11) NUTRITION [530228] (04/07/11) RISK FOR INFECTION [711007] (04/07/11) GLYCEMIA IMBALANCE [851561] (04/07/11) ANXIETY [498361] (04/09/11) Ineffective Coping [965242] (04/09/11) SELF CARE DEFICIT [916745] (04/09/11) ALTERATION IN MOOD [177913] (04/09/11) Data: Patient napped at start of [...] Ongoing Active Multi-Disciplinary problems: ALTERED THOUGHT PROCESSES [302668] (03/22/11) ALTERATION IN SLEEP [658437] (03/23/11) KNOWLEDGE DEFICIT [258372] (04/07/11) NUTRITION [821114] (04/07/11) RISK FOR INFECTION [095326] (04/07/11) GLYCEMIA IMBALANCE [811542] (04/07/11) ANXIETY [690399] (04/09/11) Ineffective Coping [182438] (04/09/11) SELF CARE DEFICIT [571993] (04/09/11) ALTERATION IN MOOD [408363] (04/09/11) Discharge Planning [445213] (04/27/11) Data: Was npo for ECT this morning. Had a maria isabel in place. Was escorted to [facility] by the T and returned to the [...] Unilateral Dosing Protocol: 0.3 ms Pulse-width Protocol ([facility]) Pulse width: 0.3 msec Frequency: [...] reasons Active Multi-Disciplinary problems: ALTERED THOUGHT PROCESSES [233317] (03/22/11) ALTERATION IN SLEEP [156500] (03/23/11) KNOWLEDGE DEFICIT [160999] (04/07/11) NUTRITION [902213] (04/07/11) RISK FOR INFECTION [838231] (04/07/11) GLYCEMIA IMBALANCE [340499] (04/07/11) ANXIETY [324793] (04/09/11) Ineffective Coping [339273] (04/09/11) SELF CARE DEFICIT [797688] (04/09/11) ALTERATION IN MOOD [207938] (04/09/11) Discharge Planning [636207] (04/27/11) Data: Pt in TV room @ [...] Care - Zamzam Sher RN - 04/29/2011 3677 EST Problem: ALTERATION IN MOOD Goal: Desires Improved Mood Outcome: Ongoing Active Multi-Disciplinary problems: ALTERED THOUGHT PROCESSES [384683] (03/22/11) ALTERATION IN SLEEP [239302] (03/23/11) KNOWLEDGE DEFICIT [882098] (04/07/11) NUTRITION [418130] (04/07/11) RISK FOR INFECTION [132391] (04/07/11) GLYCEMIA IMBALANCE [995736] (04/07/11) ANXIETY [831717] (04/09/11) Ineffective Coping [859648] (04/09/11) SELF CARE DEFICIT [133581] (04/09/11) ALTERATION IN MOOD [040147] (04/09/11) Data: Patient awake and out of [...] Care - Meghan Melchor RN - 04/29/2011 9270 EST Problem: NUTRITION Patient unable to self-regulate blood glucose level Goal: Blood Glucose Control Maintain plasma glucose levels within expected range. Outcome: Met This Shift Active Multi-Disciplinary problems: ALTERED THOUGHT PROCESSES [310418] (03/22/11) ALTERATION IN SLEEP [848002] (03/23/11) KNOWLEDGE DEFICIT [406930] (04/07/11) NUTRITION [199858] (04/07/11) RISK FOR INFECTION [567020] (04/07/11) GLYCEMIA IMBALANCE [262590] (04/07/11) ANXIETY [021518] (04/09/11) Ineffective Coping [604560] (04/09/11) SELF CARE DEFICIT [287895] (04/09/11) ALTERATION IN MOOD [367635] (04/09/11) Discharge Planning [355950] (04/27/11) Data: Denies SI/HI. Denies pain. Pleasant, [...] breakfast 101; fs before lunch 89. Response: [place] sleepy after breakfast; took a short nap [...] reasons Active Multi-Disciplinary problems: ALTERED THOUGHT PROCESSES [149665] (03/22/11) ALTERATION IN SLEEP [985218] (03/23/11) KNOWLEDGE DEFICIT [171053] (04/07/11) NUTRITION [922164] (04/07/11) RISK FOR INFECTION [489349] (04/07/11) GLYCEMIA IMBALANCE [300126] (04/07/11) ANXIETY [174339] (04/09/11) Ineffective Coping [512435] (04/09/11) SELF CARE DEFICIT [334182] (04/09/11) ALTERATION IN MOOD [840258] (04/09/11) Discharge Planning [528454] (04/27/11) Data: pt awake at beginning of scene shifter watching tv in common area. He requested [...] EPPS RN 04/28/2011 21:23 * Plan of [facility], Phuong Bautista RN - 04/28/2011 9796 EST Problem: ALTERATION IN MOOD Goal: Desires Improved Mood Intervention: Staff observations of behavior Active Multi-Disciplinary problems: ALTERED THOUGHT PROCESSES [218519] (03/22/11) ALTERATION IN SLEEP [186401] (03/23/11) KNOWLEDGE DEFICIT [846665] (04/07/11) NUTRITION [017048] (04/07/11) RISK FOR INFECTION [709449] (04/07/11) GLYCEMIA IMBALANCE [794985] (04/07/11) ANXIETY [964055] (04/09/11) Ineffective Coping [433905] (04/09/11) SELF CARE DEFICIT [701030] (04/09/11) ALTERATION IN MOOD [739039] (04/09/11) Discharge Planning [756423] (04/27/11) Data: polite and coop. Affect mildly [...] RN 04/28/2011 14:42 * Anesthesia Post-Eval - gIgy Taylor MD - 04/28/2011 0949 EST Post [...] Unilateral Dosing Protocol: 0.3 ms Pulse-width Protocol ([facility]) Pulse width: 0.3 msec Frequency: 50 [...] 04/28/2011 9:25 EST * Scanned Note-Null - Tearoom Hostess, Scan - 04/28/2011 0825 EST * Plan of Care - Teresita Colorado RN - 04/28/2011 0622 EST Problem: ALTERATION IN SLEEP Goal: Informs Staff If Unable To Sleep Outcome: Not Met This Shift Active Multi-Disciplinary problems: ALTERED THOUGHT PROCESSES [816923] (03/22/11) ALTERATION IN SLEEP [875173] (03/23/11) KNOWLEDGE DEFICIT [117798] (04/07/11) NUTRITION [850081] (04/07/11) RISK FOR INFECTION [282573] (04/07/11) GLYCEMIA IMBALANCE [588246] (04/07/11) ANXIETY [520978] (04/09/11) Ineffective Coping [447590] (04/09/11) SELF CARE DEFICIT [998074] (04/09/11) ALTERATION IN MOOD [151897] (04/09/11) Discharge Planning [507574] (04/27/11) Data: Pt awake until 0230, then [...] Ongoing Active Multi-Disciplinary problems: ALTERED THOUGHT PROCESSES [461358] (03/22/11) ALTERATION IN SLEEP [731930] (03/23/11) KNOWLEDGE DEFICIT [808154] (04/07/11) NUTRITION [722074] (04/07/11) RISK FOR INFECTION [788388] (04/07/11) GLYCEMIA IMBALANCE [704398] (04/07/11) ANXIETY [738486] (04/09/11) Ineffective Coping [608850] (04/09/11) SELF CARE DEFICIT [533844] (04/09/11) ALTERATION IN MOOD [434964] (04/09/11) Data: Patient napped at start of [...] Ongoing Active Multi-Disciplinary problems: ALTERED THOUGHT PROCESSES [668290] (03/22/11) ALTERATION IN SLEEP [870142] (03/23/11) KNOWLEDGE DEFICIT [985465] (04/07/11) NUTRITION [943072] (04/07/11) RISK FOR INFECTION [186693] (04/07/11) GLYCEMIA IMBALANCE [301537] (04/07/11) ANXIETY [830376] (04/09/11) Ineffective Coping [114221] (04/09/11) SELF CARE DEFICIT [635942] (04/09/11) ALTERATION IN MOOD [522925] (04/09/11) Discharge Planning [920317] (04/27/11) Data: Will be NPO for ECT [...] Ongoing Active Multi-Disciplinary problems: ALTERED THOUGHT PROCESSES [477392] (03/22/11) ALTERATION IN SLEEP [061783] (03/23/11) KNOWLEDGE DEFICIT [262733] (04/07/11) NUTRITION [510425] (04/07/11) RISK FOR INFECTION [381390] (04/07/11) GLYCEMIA IMBALANCE [199031] (04/07/11) ANXIETY [798148] (04/09/11) Ineffective Coping [822717] (04/09/11) SELF CARE DEFICIT [435238] (04/09/11) ALTERATION IN MOOD [322371] (04/09/11) Data: Denies SI/HI. Later this evening [...] Management Active Multi-Disciplinary problems: ALTERED THOUGHT PROCESSES [116053] (03/22/11) ALTERATION IN SLEEP [036761] (03/23/11) KNOWLEDGE DEFICIT [326982] (04/07/11) NUTRITION [904313] (04/07/11) RISK FOR INFECTION [784242] (04/07/11) GLYCEMIA IMBALANCE [818236] (04/07/11) ANXIETY [583006] (04/09/11) Ineffective Coping [339556] (04/09/11) SELF CARE DEFICIT [055714] (04/09/11) ALTERATION IN MOOD [044667] (04/09/11) Data: Finger stick was 118 at [...] Quality Active Multi-Disciplinary problems: ALTERED THOUGHT PROCESSES [922001] (03/22/11) ALTERATION IN SLEEP [162360] (03/23/11) KNOWLEDGE DEFICIT [216698] (04/07/11) NUTRITION [362123] (04/07/11) RISK FOR INFECTION [572486] (04/07/11) GLYCEMIA IMBALANCE [683013] (04/07/11) ANXIETY [125690] (04/09/11) Ineffective Coping [870620] (04/09/11) SELF CARE DEFICIT [100007] (04/09/11) ALTERATION IN MOOD [904088] (04/09/11) Data: Pt watching TV when rec'd [...] Ongoing Active Multi-Disciplinary problems: ALTERED THOUGHT PROCESSES [062611] (03/22/11) ALTERATION IN SLEEP [477981] (03/23/11) KNOWLEDGE DEFICIT [433338] (04/07/11) NUTRITION [656551] (04/07/11) RISK FOR INFECTION [761707] (04/07/11) GLYCEMIA IMBALANCE [936169] (04/07/11) ANXIETY [597783] (04/09/11) Ineffective Coping [435359] (04/09/11) SELF CARE DEFICIT [022420] (04/09/11) ALTERATION IN MOOD [176971] (04/09/11) Data: Patient attended afternoon spiritual care group. Spent time in milieu reading. Ate dinner in the TV room. Appetite is fair. Reports continued mild stomach upset and decreased appetite. Enjoyed pass earlier today with his daughter and granddaughter. FS at 1700 was 240 (after eating [employer] [place] on pass) and at HS was 188. [...] Level Active Multi-Disciplinary problems: ALTERED THOUGHT PROCESSES [262673] (03/22/11) ALTERATION IN SLEEP [535370] (03/23/11) KNOWLEDGE DEFICIT [977359] (04/07/11) NUTRITION [322176] (04/07/11) RISK FOR INFECTION [659024] (04/07/11) GLYCEMIA IMBALANCE [294943] (04/07/11) ANXIETY [398396] (04/09/11) Ineffective Coping [715554] (04/09/11) SELF CARE DEFICIT [519099] (04/09/11) ALTERATION IN MOOD [366943] (04/09/11) Data: The patient has been calm [...] Unilateral Dosing Protocol: 0.3 ms Pulse-width Protocol ([facility]) Pulse width: 0.3 msec Frequency: 50 [...] reasons Active Multi-Disciplinary problems: ALTERED THOUGHT PROCESSES [840735] (03/22/11) ALTERATION IN SLEEP [723399] (03/23/11) KNOWLEDGE DEFICIT [253728] (04/07/11) NUTRITION [025593] (04/07/11) RISK FOR INFECTION [978394] (04/07/11) GLYCEMIA IMBALANCE [525775] (04/07/11) ANXIETY [019138] (04/09/11) Ineffective Coping [767593] (04/09/11) SELF CARE DEFICIT [039577] (04/09/11) ALTERATION IN MOOD [644732] (04/09/11) Data: Pt awake, watching TV at [...] would talk to his day nurse, this entry writer advised him to speak with his [...] Care - Phoebe Epps RN - 04/24/2011 3156 EST Problem: ALTERATION IN MOOD Goal: Desires [...] EPPS RN 04/24/2011 21:04 * Plan of [facility] - Alice Fatima RN - 04/24/2011 1138 EST Problem: ALTERATION IN MOOD Goal: Desires Improved Energy Level Active Multi-Disciplinary problems: ALTERED THOUGHT PROCESSES [683895] (03/22/11) ALTERATION IN SLEEP [684244] (03/23/11) KNOWLEDGE DEFICIT [272167] (04/07/11) NUTRITION [925794] (04/07/11) RISK FOR INFECTION [612558] (04/07/11) GLYCEMIA IMBALANCE [366870] (04/07/11) ANXIETY [486112] (04/09/11) Ineffective Coping [880757] (04/09/11) SELF CARE DEFICIT [507060] (04/09/11) ALTERATION IN MOOD [620380] (04/09/11) Data: The patient was up and [...] reasons Active Multi-Disciplinary problems: ALTERED THOUGHT PROCESSES [058980] (03/22/11) ALTERATION IN SLEEP [090083] (03/23/11) KNOWLEDGE DEFICIT [276842] (04/07/11) NUTRITION [611014] (04/07/11) RISK FOR INFECTION [240798] (04/07/11) GLYCEMIA IMBALANCE [985505] (04/07/11) ANXIETY [210684] (04/09/11) Ineffective Coping [985740] (04/09/11) SELF CARE DEFICIT [256381] (04/09/11) ALTERATION IN MOOD [490881] (04/09/11) Data: Pt out in milieu, watching [...] - Lorenzo, Fadumo Mondragon RN - 04/23/2011 5865 EST Active Multi-Disciplinary problems: ALTERED THOUGHT PROCESSES [889838] (03/22/11) ALTERATION IN SLEEP [356054] (03/23/11) KNOWLEDGE DEFICIT [533718] (04/07/11) NUTRITION [307374] (04/07/11) RISK FOR INFECTION [753490] (04/07/11) GLYCEMIA IMBALANCE [893998] (04/07/11) ANXIETY [705850] (04/09/11) Ineffective Coping [206482] (04/09/11) SELF CARE DEFICIT [947204] (04/09/11) ALTERATION IN MOOD [706489] (04/09/11) Data: Napping at start of shift. [...] care Active Multi-Disciplinary problems: ALTERED THOUGHT PROCESSES [388932] (03/22/11) ALTERATION IN SLEEP [879305] (03/23/11) KNOWLEDGE DEFICIT [003358] (04/07/11) NUTRITION [558536] (04/07/11) RISK FOR INFECTION [282503] (04/07/11) GLYCEMIA IMBALANCE [627852] (04/07/11) ANXIETY [524761] (04/09/11) Ineffective Coping [285994] (04/09/11) SELF CARE DEFICIT [654709] (04/09/11) ALTERATION IN MOOD [696336] (04/09/11) Data: Was npo for ECT this morning and had his maria isabel in place. Was escorted to [facility] for his treatment by the [facility] and [...] STEPHEN CONTRERAS CRNA 04/23/2011 Cosigned by Angel Gacria at 04/24/2011 17:11 EST * ECT Report [...] Unilateral Dosing Protocol: 0.3 ms Pulse-width Protocol ([facility]) Pulse width: 0.3 msec Frequency: 50 [...] Ongoing Active Multi-Disciplinary problems: ALTERED THOUGHT PROCESSES [742469] (03/22/11) ALTERATION IN SLEEP [549696] (03/23/11) KNOWLEDGE DEFICIT [628843] (04/07/11) NUTRITION [293856] (04/07/11) RISK FOR INFECTION [532471] (04/07/11) GLYCEMIA IMBALANCE [414326] (04/07/11) ANXIETY [641419] (04/09/11) Ineffective Coping [977235] (04/09/11) SELF CARE DEFICIT [355416] (04/09/11) ALTERATION IN MOOD [257308] (04/09/11) Data: Patient was awake at onset [...] Ongoing Active Multi-Disciplinary problems: ALTERED THOUGHT PROCESSES [050963] (03/22/11) ALTERATION IN SLEEP [589585] (03/23/11) KNOWLEDGE DEFICIT [470966] (04/07/11) NUTRITION [116299] (04/07/11) RISK FOR INFECTION [801815] (04/07/11) GLYCEMIA IMBALANCE [781577] (04/07/11) ANXIETY [663079] (04/09/11) Ineffective Coping [876776] (04/09/11) SELF CARE DEFICIT [937682] (04/09/11) ALTERATION IN MOOD [302843] (04/09/11) Data: Patient napped at the start [...] Ongoing Active Multi-Disciplinary problems: ALTERED THOUGHT PROCESSES [066481] (03/22/11) ALTERATION IN SLEEP [735301] (03/23/11) KNOWLEDGE DEFICIT [863881] (04/07/11) NUTRITION [164071] (04/07/11) RISK FOR INFECTION [739645] (04/07/11) GLYCEMIA IMBALANCE [310699] (04/07/11) ANXIETY [242212] (04/09/11) Ineffective Coping [857959] (04/09/11) SELF CARE DEFICIT [541867] (04/09/11) ALTERATION IN MOOD [117635] (04/09/11) Data: Patient was awake at onset [...] mechanisms Active Multi-Disciplinary problems: ALTERED THOUGHT PROCESSES [167848] (03/22/11) ALTERATION IN SLEEP [948072] (03/23/11) KNOWLEDGE DEFICIT [728834] (04/07/11) NUTRITION [914944] (04/07/11) RISK FOR INFECTION [691644] (04/07/11) GLYCEMIA IMBALANCE [777489] (04/07/11) ANXIETY [354496] (04/09/11) Ineffective Coping [419580] (04/09/11) SELF CARE DEFICIT [136077] (04/09/11) ALTERATION IN MOOD [710257] (04/09/11) Data: Ate breakfast in the dining [...] EST Active Multi-Disciplinary problems: ALTERED THOUGHT PROCESSES [298156] (03/22/11) ALTERATION IN SLEEP [486906] (03/23/11) KNOWLEDGE DEFICIT [848063] (04/07/11) NUTRITION [271977] (04/07/11) RISK FOR INFECTION [471066] (04/07/11) GLYCEMIA IMBALANCE [980404] (04/07/11) ANXIETY [870043] (04/09/11) Ineffective Coping [238727] (04/09/11) SELF CARE DEFICIT [525993] (04/09/11) ALTERATION IN MOOD [172129] (04/09/11) Data: Pt up in tv room [...] Ongoing Active Multi-Disciplinary problems: ALTERED THOUGHT PROCESSES [608016] (03/22/11) ALTERATION IN SLEEP [183625] (03/23/11) KNOWLEDGE DEFICIT [482411] (04/07/11) NUTRITION [864762] (04/07/11) RISK FOR INFECTION [003485] (04/07/11) GLYCEMIA IMBALANCE [877969] (04/07/11) ANXIETY [684962] (04/09/11) Ineffective Coping [557868] (04/09/11) SELF CARE DEFICIT [429503] (04/09/11) ALTERATION IN MOOD [689585] (04/09/11) Data: Pt ate breakfast in DR. [...] Plan of Ladan Crenshaw LPN - 04/20/2011 0660 EST Active Multi-Disciplinary problems: ALTERED THOUGHT PROCESSES [107481] (03/22/11) ALTERATION IN SLEEP [661122] (03/23/11) KNOWLEDGE DEFICIT [919341] (04/07/11) NUTRITION [183218] (04/07/11) RISK FOR INFECTION [362768] (04/07/11) GLYCEMIA IMBALANCE [129432] (04/07/11) ANXIETY [449485] (04/09/11) Ineffective Coping [824315] (04/09/11) SELF CARE DEFICIT [296828] (04/09/11) ALTERATION IN MOOD [982857] (04/09/11) Data: Pt up in tv room [...] Care - Zamzam Sher RN - 04/19/2011 6965 EST Problem: ALTERATION IN MOOD Goal: Desires Improved Mood Outcome: Ongoing Active Multi-Disciplinary problems: ALTERED THOUGHT PROCESSES [306486] (03/22/11) ALTERATION IN SLEEP [493713] (03/23/11) KNOWLEDGE DEFICIT [973132] (04/07/11) NUTRITION [595903] (04/07/11) RISK FOR INFECTION [448183] (04/07/11) GLYCEMIA IMBALANCE [055732] (04/07/11) ANXIETY [016771] (04/09/11) Ineffective Coping [166062] (04/09/11) SELF CARE DEFICIT [812616] (04/09/11) ALTERATION IN MOOD [696060] (04/09/11) Data: Patient napped at the start [...] environment Active Multi-Disciplinary problems: ALTERED THOUGHT PROCESSES [295207] (03/22/11) ALTERATION IN SLEEP [750612] (03/23/11) KNOWLEDGE DEFICIT [016866] (04/07/11) NUTRITION [394615] (04/07/11) RISK FOR INFECTION [461938] (04/07/11) GLYCEMIA IMBALANCE [746180] (04/07/11) ANXIETY [408239] (04/09/11) Ineffective Coping [002966] (04/09/11) SELF CARE DEFICIT [201900] (04/09/11) ALTERATION IN MOOD [618777] (04/09/11) Data: The patient has been out [...] reasons Active Multi-Disciplinary problems: ALTERED THOUGHT PROCESSES [706756] (03/22/11) ALTERATION IN SLEEP [987040] (03/23/11) KNOWLEDGE DEFICIT [563621] (04/07/11) NUTRITION [272962] (04/07/11) RISK FOR INFECTION [571227] (04/07/11) GLYCEMIA IMBALANCE [836358] (04/07/11) ANXIETY [831134] (04/09/11) Ineffective Coping [150993] (04/09/11) SELF CARE DEFICIT [161495] (04/09/11) ALTERATION IN MOOD [019830] (04/09/11) Data: pt awake in activity room at beginning of the scene shifter. He requested and received repeat dose of [...] TORRES RN 04/18/2011 21:41 * Plan of [facility] - Tamika Cordero - 04/18/2011 1522 EST Problem: NUTRITION Patient unable to self-regulate blood glucose level Goal: Blood Glucose Control Maintain plasma glucose levels within expected range. Intervention: Hypoglycemia Management Active Multi-Disciplinary problems: ALTERED THOUGHT PROCESSES [672458] (03/22/11) ALTERATION IN SLEEP [071860] (03/23/11) KNOWLEDGE DEFICIT [594847] (04/07/11) NUTRITION [902694] (04/07/11) RISK FOR INFECTION [402691] (04/07/11) GLYCEMIA IMBALANCE [496798] (04/07/11) ANXIETY [973488] (04/09/11) Ineffective Coping [280228] (04/09/11) SELF CARE DEFICIT [806165] (04/09/11) ALTERATION IN MOOD [930075] (04/09/11) Data: Was npo for ECT this morning. Maria Isabel was not inserted prior to going for treatment, Because the IVRN was not able to insert it. Was ecorted to PPR by SCREEN TENDER. Was returned to the floor by the SCREEN TENDER via wheelchair. Denied any problems with side [...] Unilateral Dosing Protocol: 0.3 ms Pulse-width Protocol ([facility]) Pulse width: 0.3 msec Frequency: 50 [...] reasons Active Multi-Disciplinary problems: ALTERED THOUGHT PROCESSES [701632] (03/22/11) ALTERATION IN SLEEP [194366] (03/23/11) KNOWLEDGE DEFICIT [734173] (04/07/11) NUTRITION [811005] (04/07/11) RISK FOR INFECTION [158243] (04/07/11) GLYCEMIA IMBALANCE [185025] (04/07/11) ANXIETY [818775] (04/09/11) Ineffective Coping [537077] (04/09/11) SELF CARE DEFICIT [265468] (04/09/11) ALTERATION IN MOOD [184033] (04/09/11) Data: pt awake at 2330 watching [...] EST Active Multi-Disciplinary problems: ALTERED THOUGHT PROCESSES [087374] (03/22/11) ALTERATION IN SLEEP [787630] (03/23/11) KNOWLEDGE DEFICIT [970804] (04/07/11) NUTRITION [099041] (04/07/11) RISK FOR INFECTION [510696] (04/07/11) GLYCEMIA IMBALANCE [884896] (04/07/11) ANXIETY [569077] (04/09/11) Ineffective Coping [570292] (04/09/11) SELF CARE DEFICIT [552699] (04/09/11) ALTERATION IN MOOD [716065] (04/09/11) Data: Pt socialized with peers all [...] management Active Multi-Disciplinary problems: ALTERED THOUGHT PROCESSES [141940] (03/22/11) ALTERATION IN SLEEP [933380] (03/23/11) KNOWLEDGE DEFICIT [991127] (04/07/11) NUTRITION [992338] (04/07/11) RISK FOR INFECTION [995970] (04/07/11) GLYCEMIA IMBALANCE [308585] (04/07/11) ANXIETY [907123] (04/09/11) Ineffective Coping [814341] (04/09/11) SELF CARE DEFICIT [899608] (04/09/11) ALTERATION IN MOOD [710414] (04/09/11) Data: Ate breakfast in the dining [...] EST Active Multi-Disciplinary problems: ALTERED THOUGHT PROCESSES [631652] (03/22/11) ALTERATION IN SLEEP [133507] (03/23/11) KNOWLEDGE DEFICIT [113527] (04/07/11) NUTRITION [607159] (04/07/11) RISK FOR INFECTION [630385] (04/07/11) GLYCEMIA IMBALANCE [457464] (04/07/11) ANXIETY [011163] (04/09/11) Ineffective Coping [387666] (04/09/11) SELF CARE DEFICIT [373793] (04/09/11) ALTERATION IN MOOD [207097] (04/09/11) Data: Pt req and received Ambien [...] at 04/17/2011 6:51 EST * Plan of [facility] - [place], Phuong Bautista RN - 04/16/2011 2305 EST Problem: ALTERATION IN MOOD Goal: Desires Improved Mood Intervention: Staff observations of behavior Active Multi-Disciplinary problems: ALTERED THOUGHT PROCESSES [196597] (03/22/11) ALTERATION IN SLEEP [229588] (03/23/11) KNOWLEDGE DEFICIT [710233] (04/07/11) NUTRITION [227017] (04/07/11) RISK FOR INFECTION [708197] (04/07/11) GLYCEMIA IMBALANCE [842453] (04/07/11) ANXIETY [922583] (04/09/11) Ineffective Coping [694013] (04/09/11) SELF CARE DEFICIT [896835] (04/09/11) ALTERATION IN MOOD [398770] (04/09/11) Data: pt seemed to be in [...] Ongoing Active Multi-Disciplinary problems: ALTERED THOUGHT PROCESSES [685976] (03/22/11) ALTERATION IN SLEEP [753484] (03/23/11) KNOWLEDGE DEFICIT [076495] (04/07/11) NUTRITION [845255] (04/07/11) RISK FOR INFECTION [443880] (04/07/11) GLYCEMIA IMBALANCE [357261] (04/07/11) ANXIETY [371245] (04/09/11) Ineffective Coping [426802] (04/09/11) SELF CARE DEFICIT [889278] (04/09/11) ALTERATION IN MOOD [994903] (04/09/11) Data: Pt to ECT this am [...] Unilateral Dosing Protocol: 0.3 ms Pulse-width Protocol ([facility]) Pulse width: 0.3 msec Frequency: [...] Anesthesia Pre-Eval - Mer Espinosa - 04/16/2011 0945 EST Anesthesia ECT Pre-Evaluation Name: SHAHNAZ SANTIAGO [...] Ongoing Active Multi-Disciplinary problems: ALTERED THOUGHT PROCESSES [841933] (03/22/11) ALTERATION IN SLEEP [030961] (03/23/11) KNOWLEDGE DEFICIT [305472] (04/07/11) NUTRITION [058650] (04/07/11) RISK FOR INFECTION [680295] (04/07/11) GLYCEMIA IMBALANCE [154774] (04/07/11) ANXIETY [905898] (04/09/11) Ineffective Coping [117742] (04/09/11) SELF CARE DEFICIT [650423] (04/09/11) ALTERATION IN MOOD [087640] (04/09/11) Data: Requested repeat dose of PRN [...] Ongoing Active Multi-Disciplinary problems: ALTERED THOUGHT PROCESSES [158863] (03/22/11) ALTERATION IN SLEEP [973652] (03/23/11) KNOWLEDGE DEFICIT [590795] (04/07/11) NUTRITION [996479] (04/07/11) RISK FOR INFECTION [393941] (04/07/11) GLYCEMIA IMBALANCE [102975] (04/07/11) ANXIETY [246306] (04/09/11) Ineffective Coping [206969] (04/09/11) SELF CARE DEFICIT [898536] (04/09/11) ALTERATION IN MOOD [430802] (04/09/11) Data: Patient in bed at beginning of shift. Pleasant and cooperative. Woke up for 1700 Byetta injection. One of the two pens in drawer is cracked. Med compliant and cooperative about NPO order for tomorrow mornings ECT. Pt requested all HS meds except his ambien at 1900 and has been in tv room [employer] or working on his word puzzle book. His FS at 1700 was 235. Pt reported feeling clammy and hot around 2100. FS at 2100 has054. Action: RN continues to monitor pt for [...] Management Active Multi-Disciplinary problems: ALTERED THOUGHT PROCESSES [354784] (03/22/11) ALTERATION IN SLEEP [478658] (03/23/11) KNOWLEDGE DEFICIT [077353] (04/07/11) NUTRITION [061552] (04/07/11) RISK FOR INFECTION [923800] (04/07/11) GLYCEMIA IMBALANCE [282752] (04/07/11) ANXIETY [272382] (04/09/11) Ineffective Coping [756008] (04/09/11) SELF CARE DEFICIT [141802] (04/09/11) ALTERATION IN MOOD [365460] (04/09/11) Data: The patient's finger stick at [...] EST Active Multi-Disciplinary problems: ALTERED THOUGHT PROCESSES [877308] (03/22/11) ALTERATION IN SLEEP [778044] (03/23/11) KNOWLEDGE DEFICIT [002890] (04/07/11) NUTRITION [636581] (04/07/11) RISK FOR INFECTION [774176] (04/07/11) GLYCEMIA IMBALANCE [803927] (04/07/11) ANXIETY [900326] (04/09/11) Ineffective Coping [723941] (04/09/11) SELF CARE DEFICIT [497402] (04/09/11) ALTERATION IN MOOD [637517] (04/09/11) Data: Pt req and received Ambien [...] three hours. Reported pass going well, went PEER. Reported indigestion after returning. Patient's mood and behavior when returning was stable. In milieu with peers, moderately engaged. Requested and received nighttime ativan. Nighttime blood sugar was 367. Resident was paged and requested to give insulin on same schedule as mealtime. Patient was given 11 units of insulin. Patient was polite and gracious upon interaction. Will continue to monitor and assess. ARTHUR AVLENZUELA RN 04/14/2011 23:03 * Plan of Care - Abril Sheppard RN - 04/14/2011 7816 EST Problem: SELF CARE DEFICIT Goal: Increase Group Attendance Intervention: Monitor & document participation Active Multi-Disciplinary problems: ALTERED THOUGHT PROCESSES [676336] (03/22/11) ALTERATION IN SLEEP [249216] (03/23/11) KNOWLEDGE DEFICIT [483688] (04/07/11) NUTRITION [245583] (04/07/11) RISK FOR INFECTION [726002] (04/07/11) GLYCEMIA IMBALANCE [755172] (04/07/11) ANXIETY [655577] (04/09/11) Ineffective Coping [315562] (04/09/11) SELF CARE DEFICIT [961401] (04/09/11) ALTERATION IN MOOD [353774] (04/09/11) Data: Pt isolative to his room most of shift. FS in am 143 (2 units Novolog administered), noon 238. Pt independently went to dining room for breakfast after awakening. Pt requested Ativan 1 mg afteram meds, when asked what his anxiety symptoms were, I don't know, this entry writer responded that somepeople experience muscle tension [...] EST Active Multi-Disciplinary problems: ALTERED THOUGHT PROCESSES [084893] (03/22/11) ALTERATION IN SLEEP [990094] (03/23/11) KNOWLEDGE DEFICIT [920698] (04/07/11) NUTRITION [003811] (04/07/11) RISK FOR INFECTION [838775] (04/07/11) GLYCEMIA IMBALANCE [532662] (04/07/11) ANXIETY [713592] (04/09/11) Ineffective Coping [435003] (04/09/11) SELF CARE DEFICIT [556485] (04/09/11) ALTERATION IN MOOD [100455] (04/09/11) Data: Pt req and received Ambien [...] Ongoing Active Multi-Disciplinary problems: ALTERED THOUGHT PROCESSES [604521] (03/22/11) ALTERATION IN SLEEP [438543] (03/23/11) KNOWLEDGE DEFICIT [212832] (04/07/11) NUTRITION [003431] (04/07/11) RISK FOR INFECTION [331830] (04/07/11) GLYCEMIA IMBALANCE [739034] (04/07/11) ANXIETY [410888] (04/09/11) Ineffective Coping [110899] (04/09/11) SELF CARE DEFICIT [124180] (04/09/11) ALTERATION IN MOOD [653539] (04/09/11) [id number] Data: Resting in bed at start of [...] continueto monitor. MEGHAN MELCHOR RN 04/13/2011 18:50 [id number] Assumed care of pt. Pleasant and cooperative [...] Care - Matt Coats RN - 04/13/2011 0661 EST Problem: ALTERATION IN SLEEP Goal: Reports Nightly Sleep, Duration And Quality Outcome: Ongoing Active Multi-Disciplinary problems: ALTERED THOUGHT PROCESSES [481437] (03/22/11) ALTERATION IN SLEEP [408596] (03/23/11) KNOWLEDGE DEFICIT [013189] (04/07/11) NUTRITION [761573] (04/07/11) RISK FOR INFECTION [374770] (04/07/11) GLYCEMIA IMBALANCE [693558] (04/07/11) ANXIETY [944680] (04/09/11) Ineffective Coping [687366] (04/09/11) SELF CARE DEFICIT [219586] (04/09/11) ALTERATION IN MOOD [802563] (04/09/11) Data: Requested repeat dose of Ambien at 00:00. Went to bed at 01:00 and was found asleep on all checks thereafter. Action: Monitor rest and sleep, administer medications as ordered and provide emotional support. Response: Met minimal daily sleep goals during this shift. Mtat Coats RN 04/13/2011 6:19 * Plan of Care - Meghan Melchor RN - 04/12/20112038 EST Problem: KNOWLEDGE DEFICIT Goal: Knowledge - Diabetes Management Patient will verbalize knowledge about diabetes mellitus and its control. Outcome: Ongoing Active Multi-Disciplinary problems: ALTERED THOUGHT PROCESSES [438856] (03/22/11) ALTERATION IN SLEEP [143705] (03/23/11) KNOWLEDGE DEFICIT [457037] (04/07/11) NUTRITION [641830] (04/07/11) RISK FOR INFECTION [078278] (04/07/11) GLYCEMIA IMBALANCE [417365] (04/07/11) ANXIETY [066246] (04/09/11) Ineffective Coping [686839] (04/09/11) SELF CARE DEFICIT [889920] (04/09/11) ALTERATION IN MOOD [579660] (04/09/11) Data: Napping at the start of [...] concerns/fears Active Multi-Disciplinary problems: ALTERED THOUGHT PROCESSES [774036] (03/22/11) ALTERATION IN SLEEP [095159] (03/23/11) KNOWLEDGE DEFICIT [552529] (04/07/11) NUTRITION [085645] (04/07/11) RISK FOR INFECTION [772853] (04/07/11) GLYCEMIA IMBALANCE [680056] (04/07/11) ANXIETY [502664] (04/09/11) Ineffective Coping [027526] (04/09/11) SELF CARE DEFICIT [858352] (04/09/11) ALTERATION IN MOOD [362210] (04/09/11) Data: Finger sticks were 173 at [...] Care - Matt Coats RN - 04/12/2011 0690 EST Problem: ALTERATION IN SLEEP Goal: Reports Nightly Sleep, Duration And Quality Outcome: Ongoing Active Multi-Disciplinary problems: ALTERED THOUGHT PROCESSES [057970] (03/22/11) ALTERATION IN SLEEP [083218] (03/23/11) KNOWLEDGE DEFICIT [168305] (04/07/11) NUTRITION [968197] (04/07/11) RISK FOR INFECTION [922753] (04/07/11) GLYCEMIA IMBALANCE [301862] (04/07/11) ANXIETY [950432] (04/09/11) Ineffective Coping [327921] (04/09/11) SELF CARE DEFICIT [289380] (04/09/11) ALTERATION IN MOOD [604986] (04/09/11) Data: Asked for his second dose [...] Care - Meghan Melchor RN - 04/11/2011 2875 EST Problem: NUTRITION Patient unable to self-regulate blood glucose level Goal: Blood Glucose Control Maintain plasma glucose levels within expected range. Outcome: Ongoing Active Multi-Disciplinary problems: ALTERED THOUGHT PROCESSES [032993] (03/22/11) ALTERATION IN SLEEP [873361] (03/23/11) KNOWLEDGE DEFICIT [859237] (04/07/11) NUTRITION [482103] (04/07/11) RISK FOR INFECTION [542104] (04/07/11) GLYCEMIA IMBALANCE [569704] (04/07/11) ANXIETY [914335] (04/09/11) Ineffective Coping [224426] (04/09/11) SELF CARE DEFICIT [479187] (04/09/11) ALTERATION IN MOOD [251590] (04/09/11) Data: Napping at start of shift until about 1710. Complaints of right shoulder pain 10/27; little relief from prn percocet. 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 At 0015 pt was observed by staff to be eating ice cream, a cookie, and other snack foods. This entry writer spoke with pt about remaining NPO [...] Ongoing Active Multi-Disciplinary problems: ALTERED THOUGHT PROCESSES [677832] (03/22/11) ALTERATION IN SLEEP [247682] (03/23/11) KNOWLEDGE DEFICIT [370760] (04/07/11) NUTRITION [350251] (04/07/11) RISK FOR INFECTION [969895] (04/07/11) GLYCEMIA IMBALANCE [765855] (04/07/11) ANXIETY [806554] (04/09/11) Ineffective Coping [898808] (04/09/11) SELF CARE DEFICIT [957728] (04/09/11) ALTERATION IN MOOD [832575] (04/09/11) Data: Pt reports his mood is [...] Care - Rema Garcia RN - 04/10/2011 0567 EST Problem: Ineffective Coping Goal: Verbalizes Improved Well Being Outcome: Ongoing Active Multi-Disciplinary problems: ALTERED THOUGHT PROCESSES [403664] (03/22/11) ALTERATION IN SLEEP [208771] (03/23/11) KNOWLEDGE DEFICIT [206889] (04/07/11) NUTRITION [504047] (04/07/11) RISK FOR INFECTION [311771] (04/07/11) GLYCEMIA IMBALANCE [360505] (04/07/11) ANXIETY [274142] (04/09/11) Ineffective Coping [309969] (04/09/11) SELF CARE DEFICIT [767374] (04/09/11) ALTERATION IN MOOD [418185] (04/09/11) Data: Pt denies SI/HI, A/V/H, and states he does have some pain in his shoulder in which he denied the need for medication. Pt was pleasant and engaging in conversation with entry writer. Pt discussed his diabetes and how he manages it at home. Pt also discussed the things his used to do to help himwith the diabetes before she . Pt became tearful when talking about her. Pt smiled and was appropriate. Pt was able to laugh and joke at times with entry writer. When asked if pt felt less [...] the day. Pt stated this am to entry writer that he felt tired and was [...] Ongoing Active Multi-Disciplinary problems: ALTERED THOUGHT PROCESSES [169712] (03/22/11) ALTERATION IN SLEEP [679914] (03/23/11) KNOWLEDGE DEFICIT [228180] (04/07/11) NUTRITION [267338] (04/07/11) RISK FOR INFECTION [407006] (04/07/11) GLYCEMIA IMBALANCE [471594] (04/07/11) ANXIETY [131873] (04/09/11) Ineffective Coping [752485] (04/09/11) SELF CARE DEFICIT [707159] (04/09/11) ALTERATION IN MOOD [249209] (04/09/11) Data: Pt requested and received repeat [...] Shift Active Multi-Disciplinary problems: ALTERED THOUGHT PROCESSES [083979] (03/22/11) ALTERATION IN SLEEP [805312] (03/23/11) KNOWLEDGE DEFICIT [077214] (04/07/11) NUTRITION [306662] (04/07/11) RISK FOR INFECTION [545074] (04/07/11) GLYCEMIA IMBALANCE [269903] (04/07/11) ANXIETY [819921] (04/09/11) Ineffective Coping [564747] (04/09/11) SELF CARE DEFICIT [764159] (04/09/11) ALTERATION IN MOOD [029476] (04/09/11) Data: Napping at start of shift; [...] Ongoing Active Multi-Disciplinary problems: ALTERED THOUGHT PROCESSES [854565] (03/22/11) ALTERATION IN SLEEP [591225] (03/23/11) KNOWLEDGE DEFICIT [717664] (04/07/11) NUTRITION [673030] (04/07/11) RISK FOR INFECTION [151833] (04/07/11) GLYCEMIA IMBALANCE [905841] (04/07/11) ANXIETY [655452] (04/09/11) Ineffective Coping [402802] (04/09/11) SELF CARE DEFICIT [605333] (04/09/11) ALTERATION IN MOOD [355210] (04/09/11) Data: Was npo for ECT this morning. The maria isabel was inserted by the IVRN. Was escorted to [facility] by the T and was returned to [...] MARGARITA ARMENDARIZ CRNA 04/09/2011 Cosigned by Iggy Tyalor MD at 04/09/2011 9:43 EST * Anesthesia [...] Unilateral Dosing Protocol: 0.3 ms Pulse-width Protocol ([facility]) Pulse width: 0.3 msec Frequency: 50 [...] Outcome: Ongoing Active Multi-Disciplinary problems: FALL RISK [100269] (03/22/11) ALTERED THOUGHT PROCESSES [871247] (03/22/11) ALTERATION IN SLEEP [031929] (03/23/11) ANXIETY [878396] (03/24/11) KNOWLEDGE DEFICIT [888312] (04/07/11) NUTRITION [709369] (04/07/11) RISK FOR INFECTION [358120] (04/07/11) GLYCEMIA IMBALANCE [813192] (04/07/11) Data: Pt awake at start of [...] the unit. Slept approximately 4.5 hours on scene shifter. DAVID BUSTILLO RN 04/09/2011 6:46 * Plan of Care - Meghan Melchor RN - 04/08/20112046 EST Problem: ALTERED THOUGHT PROCESSES Goal: Desires Improvement In Ability To Think & Concentrate Outcome: Ongoing Active Multi-Disciplinary problems: FALL RISK [569937] (03/22/11) ALTERED THOUGHT PROCESSES [234332] (03/22/11) ALTERATION IN SLEEP [597945] (03/23/11) ANXIETY [093953] (03/24/11) KNOWLEDGE DEFICIT [777517] (04/07/11) NUTRITION [323224] (04/07/11) RISK FOR INFECTION [740761] (04/07/11) GLYCEMIA IMBALANCE [496589] (04/07/11) Data: Denies SI/HI. Shoulder pain 10/27; [...] Hyperglycemia Management Active Multi-Disciplinary problems: FALL RISK [683102] (03/22/11) ALTERED THOUGHT PROCESSES [340275] (03/22/11) ALTERATION IN SLEEP [964418] (03/23/11) ANXIETY [997974] (03/24/11) KNOWLEDGE DEFICIT [154797] (04/07/11) NUTRITION [833111] (04/07/11) RISK FOR INFECTION [991868] (04/07/11) GLYCEMIA IMBALANCE [741211] (04/07/11) Data: Fingerstick at 0750 was 251 [...] and reasons Active Multi-Disciplinary problems: FALL RISK [777660] (03/22/11) ALTERED THOUGHT PROCESSES [311197] (03/22/11) ALTERATION IN SLEEP [687705] (03/23/11) ANXIETY [460413] (03/24/11) KNOWLEDGE DEFICIT [232076] (04/07/11) NUTRITION [538857] (04/07/11) RISK FOR INFECTION [439696] (04/07/11) GLYCEMIA IMBALANCE [933941] (04/07/11) Data: Patient was awake at the [...] Care - Meghan Melchor RN - 04/07/2011 2142 EST Problem: ALTERED THOUGHT PROCESSES Goal: Desires Improvement In Ability To Think & Concentrate Outcome: Ongoing Active Multi-Disciplinary problems: FALL RISK [037450] (03/22/11) ALTERED THOUGHT PROCESSES [229488] (03/22/11) ALTERATION IN SLEEP [929271] (03/23/11) ANXIETY [438302] (03/24/11) KNOWLEDGE DEFICIT [640022] (04/07/11) NUTRITION [154869] (04/07/11) RISK FOR INFECTION [687767] (04/07/11) GLYCEMIA IMBALANCE [830258] (04/07/11) Data: Denies SI/HI. C/o shoulder pain [...] diabetes management Active Multi-Disciplinary problems: FALL RISK [375798] (03/22/11) ALTERED THOUGHT PROCESSES [830864] (03/22/11) ALTERATION IN SLEEP [556286] (03/23/11) ANXIETY [002684] (03/24/11) KNOWLEDGE DEFICIT [855078] (04/07/11) NUTRITION [142461] (04/07/11) RISK FOR INFECTION [340440] (04/07/11) GLYCEMIA IMBALANCE [542200] (04/07/11) Data: Was npo for ECT this morning. The maria isabel was inserted by the INRN. Attended a morning group before going for ECT. Was escorted to [facility] by the M[facility]. After recovery in the [...] inserted by the IVRN. Was escorted to [facility] for ECT by the MHT and returned [...] Unilateral Dosing Protocol: 0.3 ms Pulse-width Protocol ([facility]) Pulse width: 0.3 msec Frequency: 50 [...] Outcome: Ongoing Active Multi-Disciplinary problems: FALL RISK [349543] (03/22/11) ALTERED THOUGHT PROCESSES [844757] (03/22/11) ALTERATION IN SLEEP [468069] (03/23/11) ANXIETY [900389] (03/24/11) Data: Asked for repeat dose of [...] Outcome: Ongoing Active Multi-Disciplinary problems: FALL RISK [491296] (03/22/11) ALTERED THOUGHT PROCESSES [181696] (03/22/11) ALTERATION IN SLEEP [321420] (03/23/11) ANXIETY [968102] (03/24/11) Data: Patient was asleep at onset [...] with others Active Multi-Disciplinary problems: FALL RISK [707129] (03/22/11) ALTERED THOUGHT PROCESSES [928157] (03/22/11) ALTERATION IN SLEEP [512895] (03/23/11) ANXIETY [076511] (03/24/11) Data: The patient has been appropriate [...] on his tray. He went directly to assistant secretary to resolve the matter as if [...] Outcome: Ongoing Active Multi-Disciplinary problems: FALL RISK [998438] (03/22/11) ALTERED THOUGHT PROCESSES [134324] (03/22/11) ALTERATION IN SLEEP [089324] (03/23/11) ANXIETY [551731] (03/24/11) Data: Asked for his second dose [...] Outcome: Ongoing Active Multi-Disciplinary problems: FALL RISK [930615] (03/22/11) ALTERED THOUGHT PROCESSES [391367] (03/22/11) ALTERATION IN SLEEP [604379] (03/23/11) ANXIETY [582360] (03/24/11) Data: Patient was resting in bed [...] Care - Ervin Osorio RN - 04/05/2011 0948 EST Problem: ALTERED THOUGHT PROCESSES Goal: Effective communication and interaction with others Outcome: Ongoing Active Multi-Disciplinary problems: FALL RISK [393486] (03/22/11) ALTERED THOUGHT PROCESSES [497220] (03/22/11) ALTERATION IN SLEEP [374476] (03/23/11) ANXIETY [396136] (03/24/11) Data: FS this am 155. Pt [...] Outcome: Ongoing Active Multi-Disciplinary problems: FALL RISK [712355] (03/22/11) ALTERED THOUGHT PROCESSES [792723] (03/22/11) ALTERATION IN SLEEP [299664] (03/23/11) ANXIETY [047886] (03/24/11) Data: Awake at beginning of shift. Used several doses of nicotine inhaler while up. When patient said he could not sleep near the 03:00 mary, the entry writer suggested that he go lie down [...] of Cyndie - Christina Torres - 04/04/2011 7354 EST Problem: ALTERED THOUGHT PROCESSES Goal: Effective [...] Outcome: Ongoing Active Multi-Disciplinary problems: FALL RISK [945524] (03/22/11) ALTERED THOUGHT PROCESSES [865255] (03/22/11) ALTERATION IN SLEEP [855179] (03/23/11) ANXIETY [450803] (03/24/11) Data: Pt denies SI/HI, A/V/H, and pain. Pt is very irritable and dismissive with entry writer. Pt denied needing any help and [...] Unilateral Dosing Protocol: 0.3 ms Pulse-width Protocol ([facility]) Pulse width: 0.3 msec Frequency: 50 [...] and reasons Active Multi-Disciplinary problems: FALL RISK [533566] (03/22/11) ALTERED THOUGHT PROCESSES [809869] (03/22/11) ALTERATION IN SLEEP [216121] (03/23/11) ANXIETY [362079] (03/24/11) Data: De[ressed. Diabetes, ECT Action: Routine [...] & Concentrate Active Multi-Disciplinary problems: FALL RISK [042644] (03/22/11) ALTERED THOUGHT PROCESSES [652187] (03/22/11) ALTERATION IN SLEEP [332372] (03/23/11) ANXIETY [120933] (03/24/11) Data: Patient pleasant upon awakening this AM. Allowed this entry writer to administer medications, and take his [...] Novolog with his lunch. Irritable with this entry writer around 1200. After visitors left, patient was much more pleasant to interact with. He sat in the day room with this entry writer and engaged. He spoke of his [...] self-confidence even as a child. Herecalls the [employer] and remembers how sad and scared he was at that time. He wonders whether other children felt the same way, or if he was different. Patient declined the writing for [employer] group this afternoon, even though highly encouraged [...] and reasons Active Multi-Disciplinary problems: FALL RISK [781114] (03/22/11) ALTERED THOUGHT PROCESSES [284722] (03/22/11) ALTERATION IN SLEEP [266151] (03/23/11) ANXIETY [523385] (03/24/11) Data: Pt watching TV on milieu at start of shift. Pt ate multiple snacks before going to bed including peanut butter crackers, mac and cheese, & ice cream. V/s stable. Pt documented asleep @ 0234, out of bed from 5498-5195, no further awakenings noted. Action: Perform routine observations. Monitor v/s, mood & sleep. Supportive interactions. Response: Pt cooperative with this entry writer, smiled and joked while having v/s checked. No needs voiced. Pt slept about 4 hours thus far. Abril Sheppard RN 04/03/2011 6:32 * Plan of Care - Loraine Serna RN - 04/02/2011 7186 EST Problem: ALTERATION IN SLEEP Goal: Informs Staff If Unable To Sleep Intervention: Encourage patient to inform staff if awake at rounds Problem: ALTERATION IN SLEEP Goal: Informs Staff If Unable To Sleep Outcome: Ongoing Problem: ANXIETY Goal: Verbalizes Ways To Manage Anxiety Outcome: Ongoing Active Multi-Disciplinary problems: FALL RISK [267015] (03/22/11) ALTERED THOUGHT PROCESSES [851498] (03/22/11) ALTERATION IN SLEEP [914742] (03/23/11) ANXIETY [463524] (03/24/11) Data: Patient watched tv, social with [...] & Concentrate Active Multi-Disciplinary problems: FALL RISK [135460] (03/22/11) ALTERED THOUGHT PROCESSES [057414] (03/22/11) ALTERATION IN SLEEP [504712] (03/23/11) ANXIETY [023323] (03/24/11) Data: Patient slept well last night. [...] lots of sighing when interacting with this entry writer. Continues to talk about this situation being unreal. Will not fully engage with this entry writer when asked. PRN Ativan 1 mg given [id number] for anxiety. Patient returned to bed after this. Remained asleep for the rest of the shift. Noreports of S/I to this entry writer. Action: Attempted to engage with patient, [...] Unilateral Dosing Protocol: 0.3 ms Pulse-width Protocol ([facility]) Pulse width: 0.3 msec Frequency: 50 [...] and reasons Active Multi-Disciplinary problems: FALL RISK [054454] (03/22/11) ALTERED THOUGHT PROCESSES [579875] (03/22/11) ALTERATION IN SLEEP [609737] (03/23/11) ANXIETY [342305] (03/24/11) Data: Pt documented asleep @ 0034. [...] Outcome: Ongoing Active Multi-Disciplinary problems: FALL RISK [950537] (03/22/11) ALTERED THOUGHT PROCESSES [746779] (03/22/11) ALTERATION IN SLEEP [645549] (03/23/11) ANXIETY [315588] (03/24/11) Data: Patient watched tv, social with peers, irritable. Patient shrugging his shoulders and sighingwhen talking about ECT, Glucose and anything that pertains to his care. Patient requested pastoral care visit after clerical grader left this evening with encouragement from clerical grader and his . Patient's daughter called asking if patient had ECT today. Daughter aware he is having ect tomorrow. States she is having difficulty talking to him because he is so sad and hopeless. Stated she would call him later after his company comes to visit this evening. Patient visited by clerical grader and clerical grader's this evening. Action: Assessed for SI/HI and [...] Outcome: Ongoing Active Multi-Disciplinary problems: FALL RISK [384236] (03/22/11) ALTERED THOUGHT PROCESSES [043793] (03/22/11) ALTERATION IN SLEEP [920653] (03/23/11) ANXIETY [870953] (03/24/11) Data: Patient had c/o sedation and [...] and reasons Active Multi-Disciplinary problems: FALL RISK [641078] (03/22/11) ALTERED THOUGHT PROCESSES [589984] (03/22/11) ALTERATION IN SLEEP [916478] (03/23/11) ANXIETY [853280] (03/24/11) Data: Depressed, ECT. Action: Routine observations, [...] Outcome: Ongoing Active Multi-Disciplinary problems: FALL RISK [519617] (03/22/11) ALTERED THOUGHT PROCESSES [910958] (03/22/11) ALTERATION IN SLEEP [011470] (03/23/11) ANXIETY [874367] (03/24/11) Data: Patient watched tv, social with [...] EST Active Multi-Disciplinary problems: ALTERED THOUGHT PROCESSES [596228] (03/22/11) 07-1100 Data: Depression- pt affect is blunted; mood is not great; seems irritated by attempts at interaction by this entry writer and is avoidant, appetite is okay; [...] and reasons Active Multi-Disciplinary problems: FALL RISK [064827] (03/22/11) ALTERED THOUGHT PROCESSES [163529] (03/22/11) ALTERATION IN SLEEP [936138] (03/23/11) ANXIETY [643798] (03/24/11) Data: Depression, s/p OD. Depressed, ECT [...] & Concentrate Outcome: Ongoing ALTERED THOUGHT PROCESSES [881522] (03/22/11) Data: Locus of harm level 3. [...] observation. One to one offered. Activity encouraged. [place] encouraged. Ambien given at 2156 per patient [...] 03/29/20112000 EST Active Multi-Disciplinary problems: FALL RISK [576684] (03/22/11) ALTERED THOUGHT PROCESSES [746658] (03/22/11) ALTERATION IN SLEEP [382158] (03/23/11) ANXIETY [500913] (03/24/11) Data: Pt spent time in 325 [...] Care - Arthur Valenzuela RN - 03/29/2011 8044 EST Problem: ALTERED THOUGHT PROCESSES Goal: Effective [...] Outcome: Ongoing Active Multi-Disciplinary problems: FALL RISK [845330] (03/22/11) ALTERED THOUGHT PROCESSES [351388] (03/22/11) ALTERATION IN SLEEP [282020] (03/23/11) ANXIETY [685304] (03/24/11) Data: Pt was out of his room, in the milieu most of shift. He ate in the milieu and socialized. He rode the exercise bike for a while. He spent time in a group. He stated to this entry writer it was a little odd because it was on addiction. He said he has no addiction issues. Pt called his daughter. Pt states he is not getting enough food at his meals. He was distressed at the size of the salads on [employer]. Pt cooperative but somewhat negative. Pt states [...] and reasons Active Multi-Disciplinary problems: FALL RISK [769752] (03/22/11) ALTERED THOUGHT PROCESSES [406645] (03/22/11) ALTERATION IN SLEEP [206931] (03/23/11) ANXIETY [874852] (03/24/11) Data: Depression, labile mood. Action: Frequent [...] with others Active Multi-Disciplinary problems: FALL RISK [388870] (03/22/11) ALTERED THOUGHT PROCESSES [978639] (03/22/11) ALTERATION IN SLEEP [951385] (03/23/11) ANXIETY [840368] (03/24/11) Data: Pt. Has been calmer this [...] $ resources and lack of planning for assisted during his life. Pt. Was encouraged to [...] Restraint Events Active Multi-Disciplinary problems: FALL RISK [509370] (03/22/11) ALTERED THOUGHT PROCESSES [640401] (03/22/11) ALTERATION IN SLEEP [650742] (03/23/11) ANXIETY [203008] (03/24/11) Data: Patient was awake this AM, [...] become increasingly agitated. He argued with this entry writer about his blood sugar and was demanding to know why his value was so high if he hadn't eaten anything all day. This entry writer was unable to explain anything to this patient because he did not allow this entry writer to talk. He then slammed the door and told this entry writer to leave. Patient fell asleep after this and slept until about 1420. He awoke at this time and ate his lunch. After lunch patient continued to be rude to this entry writer. He had told the MHT to screw off! when she offered to help him fill out his menu. He then refused VS from then MHT. This entry writer went in and was able to [...] was feeling so awful. He declined this entry writer's offer to assist him with ordering [...] right here. He wouldnot elaborate with this entry writer about any of his comments. Patient [...] Report - Sajan Stanford MD - 03/27/2011 0998 EST Psychiatry Procedure Note Title of Procedure: [...] Unilateral Dosing Protocol: 0.3 ms Pulse-width Protocol ([facility]) Pulse width: 0.3 msec X 2 [...] and reasons Active Multi-Disciplinary problems: FALL RISK [466452] (03/22/11) ALTERED THOUGHT PROCESSES [094849] (03/22/11) ALTERATION IN SLEEP [254067] (03/23/11) ANXIETY [334414] (03/24/11) Data: Diabetes Mellitis, depressed, ECT Action: [...] 1855 EST Active Multi-Disciplinary problems: FALL RISK [736794] (03/22/11) ALTERED THOUGHT PROCESSES [431527] (03/22/11) ALTERATION IN SLEEP [777189] (03/23/11) ANXIETY [709201] (03/24/11) Data: Pt remains dismayed and negative about everything about him. R.N. Visited with pt and tried to find an activity ([employer], [employer] ) with no interest by pt. Ativan [...] Outcome: Ongoing Active Multi-Disciplinary problems: FALL RISK [494196] (03/22/11) ALTERED THOUGHT PROCESSES [093583] (03/22/11) ALTERATION IN SLEEP [447324] (03/23/11) ANXIETY [297332] (03/24/11) Data: Patient appeared to sleep a [...] Outcome: Ongoing Active Multi-Disciplinary problems: FALL RISK [452449] (03/22/11) ALTERED THOUGHT PROCESSES [607403] (03/22/11) ALTERATION IN SLEEP [010733] (03/23/11) ANXIETY [498222] (03/24/11) Data: Pt using laptop at start [...] Outcome: Ongoing Active Multi-Disciplinary problems: FALL RISK [496406] (03/22/11) ALTERED THOUGHT PROCESSES [827665] (03/22/11) ALTERATION IN SLEEP [570559] (03/23/11) ANXIETY [850004] (03/24/11) Data: Pt has been in a better mood throughout this shift spending a lot of time on the phone and computer. Pt reports good sleep and has eaten well. He is clearer in conversation and noticabely less grumpy. Pt accepted all of his medications and finger sticks. Spoke of his belief that he is bruising too easily and showed this entry writer a couple of bruises on his [...] and reasons Active Multi-Disciplinary problems: FALL RISK [197794] (03/22/11) ALTERED THOUGHT PROCESSES [230537] (03/22/11) ALTERATION IN SLEEP [223757] (03/23/11) ANXIETY [094507] (03/24/11) Data: Patient appeared to sleep a total of 8 hours without waking. No s/s of distress or discomfortnoted. Action: Maintained on frequent observation for safety. Response: Patient remained safe this shift. MEGA DELEON RN 03/25/2011 6:21 * Plan of Care - Cinthya Zayas RN - 03/24/2011 6370 EST Problem: ANXIETY Goal: Implements Measures To Reduce Anxiety Outcome: Ongoing Active Multi-Disciplinary problems: FALL RISK [768780] (03/22/11) ALTERED THOUGHT PROCESSES [468859] (03/22/11) ALTERATION IN SLEEP [178643] (03/23/11) ANXIETY [572383] (03/24/11) Data: Was reported that pt was [...] & Concentrate Active Multi-Disciplinary problems: FALL RISK [609001] (03/22/11) ALTERED THOUGHT PROCESSES [667330] (03/22/11) ALTERATION IN SLEEP [686519] (03/23/11) Data: Patient was much more calm [...] RN 03/24/2011 14:26 * Scanned Note-Null - Tearoom Hostess, Scan - 03/24/2011 1246 EST * Scanned Note-Null - Tearoom Hostess, Scan - 03/24/2011 1246 EST * Plan of Care - Matt Coats RN - 03/24/2011 0548 EST Problem: ALTERATION IN SLEEP Goal: Reports Nightly Sleep, Duration And Quality Outcome: Ongoing Active Multi-Disciplinary problems: FALL RISK [908479] (03/22/11) ALTERED THOUGHT PROCESSES [553901] (03/22/11) ALTERATION IN SLEEP [672876] (03/23/11) Data: Asked for an ativan tablet [...] of Care - Juana Peña - 03/23/2011 0825 EST Problem: ALTERED THOUGHT PROCESSES Goal: Desires Improvement In Ability To Think & Concentrate Active Multi-Disciplinary problems: FALL RISK [135714] (03/22/11) ALTERED THOUGHT PROCESSES [608212] (03/22/11) ALTERATION IN SLEEP [401099] (03/23/11) Data: Patient attended pet therapy at the start of the shift. Following this group he retreated to his room and became incredibly anxious and perseverative. He was focused on his clothing and the fact that he only had two outfits available. Patient was unable to listen to this entry writer's reasoning atall. He remained in his room until dinner, completely focused on his clothing. Patient did eat in the milieu with encouragement from this entry writer. His FS at 1700 was 260, [...] TV until 2244. He reported to this entry writer that he would be unable to [...] have a calm, coherent conversation with this entry writer. He spoke about things he needs to do in the future to get better. He was a bit more optimistic. He told this entry writer of the small community he lives in ([facility]) compared to [place], [place]. FS at [id number]. Patient wanted to eat a sandwich at [...] Care - Adryannisha David S - 03/23/2011 1508 EST Problem: ALTERED THOUGHT PROCESSES Goal: Desires Improvement In Ability To Think & Concentrate Outcome: Ongoing Active Multi-Disciplinary problems: FALL RISK [419830] (03/22/11) ALTERED THOUGHT PROCESSES [289256] (03/22/11) ALTERATION IN SLEEP [830811] (03/23/11) Data: Pt was extremely negative during [...] Care - Matt Coats RN - 03/23/2011 0632 EST Problem: ALTERATION IN SLEEP Goal: Informs Staff If Unable To Sleep Outcome: Ongoing Active Multi-Disciplinary problems: FALL RISK [677715] (03/22/11) ALTERED THOUGHT PROCESSES [421443] (03/22/11) ALTERATION IN SLEEP [080090] (03/23/11) Data: Patient was awake, anxious, confused [...] Outcome: Ongoing Active Multi-Disciplinary problems: FALL RISK [795831] (03/22/11) ALTERED THOUGHT PROCESSES [717205] (03/22/11) Data: Pt admitted to [facility] at approx dinner time. He agrees not [...] me that patient's medications were changed at [facility] where Trilafon and Nortryptyline were added and since [facility] visit pt has been increasingly confused and [...] 8:39 EST) 05/13/2011 8:39 EST Narrative Transcriptions [employer] Hostess, Scan - 05/13/2011 8:39 EST us Scan [employer]ess PROCEDURE/MINOR SURGICAL ORDE RABLES Final Result * (ABNORMAL) GLUCOSE, GLUCOMETER (05/05/2011 8:03 EST) Glucose, Fingerstick 120(H) 70 - 100 mg/dl [facility] [employer] Photogrammetry ID [id number] [facility] Comment:Test Performed by [employer] 05/05/2011 8:03 EST 05/05/2011 8:44 EST us Mary Jauregui MD CHEMISTRY & BLOOD GAS ORDER TEJ Final Result [facility] [address] [place] [address] * (ABNORMAL) GLUCOSE, GLUCOMETER (05/04/2011 21:03 EST) Glucose, Fingerstick 161(H) 70 - 100 mg/dl [facility] [employer] Photogrammetry ID [id number] [facility] Comment:[facility] 05/04/2011 21:0 3 EST 05/04/2011 21:08 EST us Mary Jauregui MD CHEMISTRY & BLOOD GAS ORDER TEJ Final Result Performing Organization Address [facility] de Phone Number [facility] [address] [place] [address] * (ABNORMAL) GLUCOSE, GLUCOMETER (05/04/2011 17:01 EST) Glucose, Fingerstick 207(H) 70 - 100 mg/dl [facility] [employer] Photogrammetry ID [id number] [facility] Comment:Test Performed by [employer] 05/04/2011 17:0 1 EST 05/04/2011 17:09 EST us Mary Jauregui MD CHEMISTRY & BLOOD GAS ORDER TEJ Final Result Performing Organization Address [facility] Phone Number [facility] [address] [place] [address] * GLUCOSE, GLUCOMETER (05/04/2011 11:49 EST) Glucose, Fingerstick 70 70 - 100 mg/dl [facility] [employer] Photogrammetry ID [id number] [facility] Comment:Test Performed by [employer] 05/04/2011 11:4 9 EST 05/04/2011 11:53 EST us Mary Jauregui MD CHEMISTRY & BLOOD GAS ORDER TEJ Final Result Performing Organization Address [facility] de Phone Number [facility] [address] [place] [address] * (ABNORMAL) GLUCOSE, GLUCOMETER (05/04/2011 8:14 EST) Glucose, Fingerstick 108(H) 70 - 100 mg/dl [facility] [employer] Photogrammetry ID [id number] [facility] Comment:Test Performed by [employer] 05/04/2011 8:14 EST 05/04/2011 8:30 EST us Mary Jauregui MD CHEMISTRY & BLOOD GAS ORDER TEJ Final Result Performing Organization Address City/[facility]/ZIP Co de Phone Number [facility] [address] [place] [address] * (ABNORMAL) GLUCOSE, GLUCOMETER (05/03/2011 21:51 EST) Glucose, Fingerstick 176(H) 70 - 100 mg/dl [facility] [employer] Photogrammetry ID [id number] [facility] Comment:Test Performed by [employer] 05/03/2011 21:5 1 EST 05/03/2011 21:56 EST Mary Jauregui MD CHEMISTRY & BLOOD GAS ORDER TEJ Final Result Performing Organization Address [facility] Co de Phone Number [facility] [address] [place] [address] * (ABNORMAL) GLUCOSE, GLUCOMETER (05/03/2011 16:35 EST) Glucose, Fingerstick 154(H) 70 - 100 mg/dl [facility] [employer] Photogrammetry ID [id number] [facility] Comment:Test Performed by [employer] 05/03/2011 16:3 5 EST 05/03/2011 16:43 EST us Mary Jauregui MD CHEMISTRY & BLOOD GAS ORDER TEJ Final Result Performing Organization Address [facility] Co de Phone Number [facility] [address] [place] [address] * GLUCOSE, GLUCOMETER (05/03/2011 11:59 EST) Glucose, Fingerstick 84 70 - 100 mg/dl [facility] [employer] Photogrammetry ID [id number] [facility] Comment:Test Performed by [employer] 05/03/2011 11:5 9 EST 05/03/2011 12:04 EST us Mary Jauregui MD CHEMISTRY & BLOOD GAS ORDER TEJ Final Result Performing Organization Address [facility]/ZIP Co de Phone Number [facility] [address] [place] [address] * GLUCOSE, GLUCOMETER (05/03/2011 8:20 EST) Glucose, Fingerstick 78 70 - 100 mg/dl [facility] [employer] Photogrammetry ID [id number] [facility] Comment:Test Performed by [employer] 05/03/2011 8:20 EST 05/03/2011 8:29 EST Mary Jauregui MD CHEMISTRY & BLOOD GAS ORDER TEJ Final Result Performing Organization Address [facility] de Phone Number [facility] [address] [place] [address] * (ABNORMAL) GLUCOSE, GLUCOMETER (05/02/2011 21:13 EST) Glucose, Fingerstick 167(H) 70 - 100 mg/dl [facility] [employer] Photogrammetry ID [id number] [facility] Comment:Test Performed by [employer] 05/02/2011 21:1 3 EST 05/02/2011 21:14 EST Mary Jauregui MD CHEMISTRY & BLOOD GAS ORDER TEJ Final Result Performing Organization Address [facility] de Phone Number [facility] [address] [place] [address] * (ABNORMAL) GLUCOSE, GLUCOMETER (05/02/2011 17:25 EST) Glucose, Fingerstick 208(H) 70 - 100 mg/dl [facility] [employer] Photogrammetry ID [id number] [facility] Comment:Test Performed by [employer] 05/02/2011 17:2 5 EST 05/02/2011 17:27 EST Mary Jauregui MD CHEMISTRY & BLOOD GAS ORDER TEJ Final Result Performing Organization Address [facility] de Phone Number [facility] [address] [place] [address] * (ABNORMAL) GLUCOSE, GLUCOMETER (05/02/2011 11:55 EST) Glucose, Fingerstick 283(H) 70 - 100 mg/dl [facility] [employer] Photogrammetry ID [id number] [facility] Comment:Test Performed by [employer] 05/02/2011 11:5 5 EST 05/02/2011 11:57 EST us Mary Jauregui MD CHEMISTRY & BLOOD GAS ORDER TEJ Final Result Performing Organization Address [facility] de Phone Number [facility] [address] [place] [address] * (ABNORMAL) GLUCOSE, GLUCOMETER (05/02/2011 8:30 EST) Glucose, Fingerstick 125(H) 70 - 100 mg/dl [facility] [employer] Photogrammetry ID [id number] [facility] Comment:Test Performed by [employer] 05/02/2011 8:30 EST 05/02/2011 8:33 EST us Mary Jauregui MD CHEMISTRY & BLOOD GAS ORDER TEJ Final Result Performing Organization Address [facility] de Phone Number [facility] [address] [place] [address] * (ABNORMAL) GLUCOSE, GLUCOMETER (05/01/2011 20:51 EST) Glucose, Fingerstick 184(H) 70 - 100 mg/dl [facility] [employer] Photogrammetry ID [id number] [facility] Comment:Test Performed by [employer] 05/01/2011 20:5 1 EST 05/02/2011 8:33 EST us Mary Jauregui MD CHEMISTRY & BLOOD GAS ORDER TEJ Final Result Performing Organization Address [facility] de Phone Number [facility] [address] [place] [address] * (ABNORMAL) GLUCOSE, GLUCOMETER (05/01/2011 16:57 EST) Glucose, Fingerstick 153(H) 70 - 100 mg/dl [facility] [employer] Photogrammetry ID [id number] [facility] Comment:Test Performed by [employer] 05/01/2011 16:5 7 EST 05/01/2011 17:10 EST Mary Jauregui MD CHEMISTRY & BLOOD GAS ORDER TEJ Final Result Performing Organization Address [facility] Phone Number [facility] [address] [place] [address] * (ABNORMAL) GLUCOSE, GLUCOMETER (05/01/2011 12:03 EST) Glucose, Fingerstick 124(H) 70 - 100 mg/dl [facility] [employer] Photogrammetry ID [id number] [facility] Comment:Test Performed by [employer] 05/01/2011 12:0 3 EST 05/01/2011 12:10 EST Mary Jauregui MD CHEMISTRY & BLOOD GAS ORDER TEJ Final Result Performing Organization Address [facility] Phone Number [facility] [address] [place] [address] * (ABNORMAL) GLUCOSE, GLUCOMETER (05/01/2011 8:01 EST) Glucose, Fingerstick 124(H) 70 - 100 mg/dl [facility] [employer] Photogrammetry ID [id number] [facility] Comment:Test Performed by [employer] 05/01/2011 8:01 EST 05/01/2011 8:27 EST Mary Jauregui MD CHEMISTRY & BLOOD GAS ORDER TEJ Final Result Performing Organization Address [facility] de Phone Number [facility] [address] [place] [address] * (ABNORMAL) GLUCOSE, GLUCOMETER (04/30/2011 21:04 EST) Glucose, Fingerstick 142(H) 70 - 100 mg/dl [facility] [employer] Photogrammetry ID [id number] [facility] Comment:Test Performed by [employer] 04/30/2011 21:0 4 EST 04/30/2011 21:08 EST Mary Jauregui MD CHEMISTRY & BLOOD GAS ORDER TEJ Final Result Performing Organization Address [facility] Co de Phone Number [facility] [address] [place] [address] * (ABNORMAL) GLUCOSE, GLUCOMETER (04/30/2011 16:55 EST) Glucose, Fingerstick 155(H) 70 - 100 mg/dl [facility] [employer] Photogrammetry ID [id number] [facility] Comment:Test Performed by [employer] 04/30/2011 16:5 5 EST 04/30/2011 16:57 EST us Mary Jauregui MD CHEMISTRY & BLOOD GAS ORDER TEJ Final Result Performing Organization Address [facility] de Phone Number [facility] [address] [place] [address] * (ABNORMAL) GLUCOSE, GLUCOMETER (04/30/2011 12:22 EST) Glucose, Fingerstick 169(H) 70 - 100 mg/dl [facility] [employer] Photogrammetry ID [id number] [facility] Comment:Test Performed by [employer] 04/30/2011 12:2 2 EST 04/30/2011 12:24 EST us Mary Jauregui MD CHEMISTRY & BLOOD GAS ORDER TEJ Final Result Performing Organization Address [facility] de Phone Number [facility] [address] [place] [address] * (ABNORMAL) GLUCOSE, GLUCOMETER (04/30/2011 8:32 EST) Glucose, Fingerstick 105(H) 70 - 100 mg/dl [facility] [employer] Photogrammetry ID [id number] [facility] Comment:Test Performed by [employer] 04/30/2011 8:32 EST 04/30/2011 8:53 EST us Mary Jauregui MD CHEMISTRY & BLOOD GAS ORDER TEJ Final Result Performing Organization Address [facility]/ZIP Co de Phone Number [facility] [address] [place] [address] * (ABNORMAL) GLUCOSE, GLUCOMETER (04/29/2011 21:03 EST) Glucose, Fingerstick 206(H) 70 - 100 mg/dl [facility] [employer] Photogrammetry ID [id number] [facility] Comment:Test Performed by [employer] 04/29/2011 21:0 3 EST 04/29/2011 21:04 EST us Mary Jauregui MD CHEMISTRY & BLOOD GAS ORDER TEJ Final Result Performing Organization Address [facility] Co de Phone Number [facility] [address] [place] [address] * (ABNORMAL) GLUCOSE, GLUCOMETER (04/29/2011 16:46 EST) Glucose, Fingerstick 237(H) 70 - 100 mg/dl [facility] [employer] Photogrammetry ID [id number] [facility] Comment:Test Performed by [employer] 04/29/2011 16:4 6 EST 04/29/2011 16:48 EST us Mary Jauregui MD CHEMISTRY & BLOOD GAS ORDER TEJ Final Result Performing Organization Address [facility] Co de Phone Number [facility] [address] [place] [address] * GLUCOSE, GLUCOMETER (04/29/2011 11:52 EST) Glucose, Fingerstick 89 70 - 100 mg/dl [facility] [employer] Photogrammetry ID [id number] [facility] Comment:Test Performed by [employer] 04/29/2011 11:5 2 EST 04/29/2011 11:57 EST us Mary Jauregui MD CHEMISTRY & BLOOD GAS ORDER TEJ Final Result Performing Organization Address [facility] Co de Phone Number [facility] [address] [place] [address] * (ABNORMAL) GLUCOSE, GLUCOMETER (04/29/2011 8:14 EST) Glucose, Fingerstick 101(H) 70 - 100 mg/dl [facility] [employer] Photogrammetry ID [id number] [facility] Comment:Test Performed by [employer] 04/29/2011 8:14 EST 04/29/2011 8:37 EST us Mary Jauregui MD CHEMISTRY & BLOOD GAS ORDER TEJ Final Result Performing Organization Address [facility] de Phone Number [facility] [address] [place] [address] * (ABNORMAL) GLUCOSE, GLUCOMETER (04/28/2011 20:59 EST) Glucose, Fingerstick 151(H) 70 - 100 mg/dl [facility] [employer] Photogrammetry ID [id number] [facility] Comment:Test Performed by [employer] 04/28/2011 20:5 9 EST 04/28/2011 21:01 EST us Mary Jauregui MD CHEMISTRY & BLOOD GAS ORDER TEJ Final Result Performing Organization Address [facility] de Phone Number [facility] [address] [place] [address] * (ABNORMAL) GLUCOSE, GLUCOMETER (04/28/2011 17:05 EST) Glucose, Fingerstick 143(H) 70 - 100 mg/dl [facility] [employer] Photogrammetry ID [id number] [facility] Comment:Test Performed by [employer] 04/28/2011 17:0 5 EST 04/28/2011 17:08 EST Mary Jauregui MD CHEMISTRY & BLOOD GAS ORDER TEJ Final Result Performing Organization Address [facility] de Phone Number [facility] [address] [place] [address] * (ABNORMAL) GLUCOSE, GLUCOMETER (04/28/2011 12:21 EST) Glucose, Fingerstick 250(H) 70 - 100 mg/dl [facility] [employer] Photogrammetry ID [id number] [facility] Comment:Test Performed by [employer] 04/28/2011 12:2 1 EST 04/28/2011 12:25 EST Mary Jauregui MD CHEMISTRY & BLOOD GAS ORDER TEJ Final Result Performing Organization Address [facility] Phone Number [facility] [address] [place] [address] * (ABNORMAL) GLUCOSE, GLUCOMETER (04/28/2011 7:45 EST) Glucose, Fingerstick 110(H) 70 - 100 mg/dl [facility] [employer] Photogrammetry ID [id number] [facility] Comment:Test Performed by [employer] 04/28/2011 7:45 EST 04/28/2011 7:48 EST Mary Jauregui MD CHEMISTRY & BLOOD GAS ORDER TEJ Final Result Performing Organization Address [facility] Phone Number [facility] [address] [place] [address] * (ABNORMAL) GLUCOSE, GLUCOMETER (04/27/2011 20:52 EST) Glucose, Fingerstick 256(H) 70 - 100 mg/dl [facility] [employer] Photogrammetry ID [id number] [facility] Comment:Test Performed by [employer] 04/27/2011 20:5 2 EST 04/27/2011 20:55 EST Mary Jauregui MD CHEMISTRY & BLOOD GAS ORDER TEJ Final Result Performing Organization Address [facility] de Phone Number [facility] [address] [place] [address] * (ABNORMAL) GLUCOSE, GLUCOMETER (04/27/2011 16:59 EST) Glucose, Fingerstick 214(H) 70 - 100 mg/dl [facility] [employer] Photogrammetry ID [id number] [facility] Comment:Test Performed by [employer] 04/27/2011 16:5 9 EST 04/27/2011 17:02 EST us Mary Jauregui MD CHEMISTRY & BLOOD GAS ORDER TEJ Final Result Performing Organization Address [facility] de Phone Number [facility] [address] [place] [address] * (ABNORMAL) GLUCOSE, GLUCOMETER (04/27/2011 11:53 EST) Glucose, Fingerstick 66(L) 70 - 100 mg/dl [facility] [employer] Photogrammetry ID [id number] [facility] Comment:Test Performed by [employer] 04/27/2011 11:5 3 EST 04/27/2011 11:55 EST us Mary Jauregui MD CHEMISTRY & BLOOD GAS ORDER TEJ Final Result Performing Organization Address [facility] de Phone Number [facility] [address] [place] [address] * (ABNORMAL) GLUCOSE, GLUCOMETER (04/27/2011 7:51 EST) Glucose, Fingerstick 209(H) 70 - 100 mg/dl [facility] [employer] Photogrammetry ID [id number] [facility] Comment:Test Performed by [employer] 04/27/2011 7:51 EST 04/27/2011 7:54 EST us Mary Jauregui MD CHEMISTRY & BLOOD GAS ORDER TEJ Final Result Performing Organization Address [facility] Co de Phone Number [facility] [address] [place] [address] * (ABNORMAL) GLUCOSE, GLUCOMETER (04/26/2011 21:57 EST) Glucose, Fingerstick 180(H) 70 - 100 mg/dl [facility] [employer] Photogrammetry ID [id number] [facility] Comment:Test Performed by [employer] 04/26/2011 21:5 7 EST 04/26/2011 22:00 EST us Mary Jauregui MD CHEMISTRY & BLOOD GAS ORDER TEJ Final Result Performing Organization Address [facility]ZIP Co de Phone Number [facility] [address] [place] [address] * (ABNORMAL) GLUCOSE, GLUCOMETER (04/26/2011 16:54 EST) Glucose, Fingerstick 129(H) 70 - 100 mg/dl [facility] [employer] Photogrammetry ID [id number] [facility] Comment:Test Performed by [employer] 04/26/2011 16:5 4 EST 04/26/2011 16:55 EST us Mary Jauregui MD CHEMISTRY & BLOOD GAS ORDER TEJ Final Result Performing Organization Address [facility] de Phone Number [facility] [address] [place] [address] * (ABNORMAL) GLUCOSE, GLUCOMETER (04/26/2011 11:53 EST) Glucose, Fingerstick 140(H) 70 - 100 mg/dl [facility] [employer] Photogrammetry ID [id number] [facility] Comment:Test Performed by [employer] 04/26/2011 11:5 3 EST 04/26/2011 11:56 EST us Mary Jauregui MD CHEMISTRY & BLOOD GAS ORDER TEJ Final Result Performing Organization Address [facility] Co de Phone Number [facility] [address] [place] [address] * (ABNORMAL) GLUCOSE, GLUCOMETER (04/26/2011 7:54 EST) Glucose, Fingerstick 118(H) 70 - 100 mg/dl [facility] [employer] Photogrammetry ID [id number] [facility] Comment:Test Performed by [employer] 04/26/2011 7:54 EST 04/26/2011 7:59 EST us Mary Jauregui MD CHEMISTRY & BLOOD GAS ORDER TEJ Final Result Performing Organization Address [facility] Co de Phone Number [facility] [address] [place] [address] * (ABNORMAL) GLUCOSE, GLUCOMETER (04/25/2011 20:51 EST) Glucose, Fingerstick 188(H) 70 - 100 mg/dl [facility] [employer] Photogrammetry ID [id number] [facility] Comment:Test Performed by [employer] 04/25/2011 20:5 1 EST 04/25/2011 20:53 EST us Mary Jauregui MD CHEMISTRY & BLOOD GAS ORDER TEJ Final Result Performing Organization Address [facility] Co de Phone Number [facility] [address] [place] [address] * (ABNORMAL) GLUCOSE, GLUCOMETER (04/25/2011 17:05 EST) Glucose, Fingerstick 240(H) 70 - 100 mg/dl [facility] [employer] Photogrammetry ID [id number] [facility] Comment:Test Performed by [employer] 04/25/2011 17:0 5 EST 04/25/2011 17:08 EST us Mary Jauregui MD CHEMISTRY & BLOOD GAS ORDER TEJ Final Result Performing Organization Address [facility] de Phone Number [facility] [address] [place] [address] * (ABNORMAL) GLUCOSE, GLUCOMETER (04/25/2011 13:22 EST) Glucose, Fingerstick 136(H) 70 - 100 mg/dl [facility] [employer] Photogrammetry ID [id number] [facility] Comment:Test Performed by [employer] 04/25/2011 13:2 2 EST 04/25/2011 13:24 EST Mary Jauregui MD CHEMISTRY & BLOOD GAS ORDER TEJ Final Result Performing Organization Address [facility] de Phone Number [facility] [address] [place] [address] * GLUCOSE, GLUCOMETER (04/25/2011 8:19 EST) Glucose, Fingerstick 96 70 - 100 mg/dl [facility] [employer] Photogrammetry ID [id number] [facility] Comment:Test Performed by [employer] 04/25/2011 8:19 EST 04/25/2011 8:22 EST Mary Jauregui MD CHEMISTRY & BLOOD GAS ORDER TEJ Final Result Performing Organization Address [facility] de Phone Number [facility] [address] [place] [address] * (ABNORMAL) GLUCOSE, GLUCOMETER (04/24/2011 20:52 EST) Glucose, Fingerstick 283(H) 70 - 100 mg/dl [facility] [employer] Photogrammetry ID [id number] [facility] Comment:Test Performed by [employer] 04/24/2011 20:5 2 EST 04/24/2011 20:55 EST us Mary Jauregui MD CHEMISTRY & BLOOD GAS ORDER TEJ Final Result Performing Organization Address [facility] de Phone Number [facility] [address] [place] [address] * (ABNORMAL) GLUCOSE, GLUCOMETER (04/24/2011 17:17 EST) Glucose, Fingerstick 189(H) 70 - 100 mg/dl [facility] [employer] Photogrammetry ID [id number] [facility] Comment:Test Performed by [employer] 04/24/2011 17:1 7 EST 04/24/2011 17:21 EST us Mary Jauregui MD CHEMISTRY & BLOOD GAS ORDER TEJ Final Result Performing Organization Address [facility] Co de Phone Number [facility] [address] [place] [address] * GLUCOSE, GLUCOMETER (04/24/2011 11:52 EST) Glucose, Fingerstick 100 70 - 100 mg/dl [facility] [employer] Photogrammetry ID [id number] [facility] Comment:Test Performed by [employer] 04/24/2011 11:5 2 EST 04/24/2011 11:55 EST us Mary Jauregui MD CHEMISTRY & BLOOD GAS ORDER TEJ Final Result Performing Organization Address [facility] de Phone Number [facility] [address] [place] [address] * (ABNORMAL) GLUCOSE, GLUCOMETER (04/24/2011 8:13 EST) Glucose, Fingerstick 126(H) 70 - 100 mg/dl [facility] [employer] Photogram[employer] ID [id number] [facility] Comment:Test Performed by [employer] 04/24/2011 8:13 EST 04/24/2011 8:16 EST us Mary Jauregui MD CHEMISTRY & BLOOD GAS ORDER TEJ Final Result Performing Organization Address [facility] Phone Number [facility] [address] [place] [address] * (ABNORMAL) GLUCOSE, GLUCOMETER (04/23/2011 20:54 EST) Glucose, Fingerstick 248(H) 70 - 100 mg/dl [facility] [employer] Photogrammetry ID [id number] [facility] Comment:Test Performed by [employer] 04/23/2011 20:5 4 EST 04/23/2011 20:57 EST us Mary Jauregui MD CHEMISTRY & BLOOD GAS ORDER TEJ Final Result Performing Organization Address [facility] de Phone Number [facility] [address] [place] [address] * (ABNORMAL) GLUCOSE, GLUCOMETER (04/23/2011 17:17 EST) Glucose, Fingerstick 174(H) 70 - 100 mg/dl [facility] [employer] Photogram[employer] ID [id number] [facility] Comment:Test Performed by [employer] 04/23/2011 17:1 7 EST 04/23/2011 17:19 EST us Mary Jauregui MD CHEMISTRY & BLOOD GAS ORDER TEJ Final Result Performing Organization Address [facility]/ZIP Co de Phone Number [facility] [address] [place] [address] * (ABNORMAL) GLUCOSE, GLUCOMETER (04/23/2011 12:08 EST) Glucose, Fingerstick 230(H) 70 - 100 mg/dl [facility] [employer] Photogrammetry ID [id number] [facility] Comment:Test Performed by [employer] 04/23/2011 12:0 8 EST 04/23/2011 12:09 EST us Mary Jauregui MD CHEMISTRY & BLOOD GAS ORDER TEJ Final Result Performing Organization Address [facility] de Phone Number [facility] [address] [place] [address] * (ABNORMAL) GLUCOSE, GLUCOMETER (04/23/2011 9:26 EST) Glucose, Fingerstick 161(H) 70 - 100 mg/dl [facility] [employer] Photogram[employer] ID [id number] [facility] Comment:Test Performed by [employer] 04/23/2011 9:26 EST 04/23/2011 9:27 EST us Mary Jauregui MD CHEMISTRY & BLOOD GAS ORDER TEJ Final Result Performing Organization Address [facility] de Phone Number [facility] [address] [place] [address] * (ABNORMAL) GLUCOSE, GLUCOMETER (04/23/2011 8:19 EST) Glucose, Fingerstick 132(H) 70 - 100 mg/dl [facility] [employer] Photogrammetry ID [id number] [facility] Comment:Test Performed by [employer] 04/23/2011 8:19 EST 04/23/2011 8:24 EST us Mary Jauregui MD CHEMISTRY & BLOOD GAS ORDER TEJ Final Result Performing Organization Address [facility] Co de Phone Number [facility] [address] [place] [address] * (ABNORMAL) GLUCOSE, GLUCOMETER (04/22/2011 20:51 EST) Glucose, Fingerstick 238(H) 70 - 100 mg/dl [facility] [employer] Photogrammetry ID [id number] [facility] Comment:Test Performed by [employer] 04/22/2011 20:5 1 EST 04/22/2011 20:53 EST us Mary Jauregui MD CHEMISTRY & BLOOD GAS ORDER TEJ Final Result Performing Organization Address [facility] Co de Phone Number [facility] [address] [place] [address] * (ABNORMAL) GLUCOSE, GLUCOMETER (04/22/2011 16:57 EST) Glucose, Fingerstick 180(H) 70 - 100 mg/dl [facility] [employer] [place]ogram[place] ID [id number] [facility] Comment:Test Performed by [employer] 04/22/2011 16:5 7 EST 04/22/2011 17:06 EST us Mary Jauregui MD CHEMISTRY & BLOOD GAS ORDER TEJ Final Result Performing Organization Address [facility] de Phone Number [facility] [address] [place] [address] * (ABNORMAL) GLUCOSE, GLUCOMETER (04/22/2011 11:48 EST) Glucose, Fingerstick 158(H) 70 - 100 mg/dl [facility] [employer] Photogrammetry ID [id number] [facility] Comment:Test Performed by rsing Gradient X 04/22/2011 11:4 8 EST 04/22/2011 11:50 EST us Mary Jauregui MD CHEMISTRY & BLOOD GAS ORDER TEJ Final Result Performing Organization Address [facility] de Phone Number [facility] [address] [place] [address] * (ABNORMAL) GLUCOSE, GLUCOMETER (04/22/2011 8:02 EST) Glucose, Fingerstick 138(H) 70 - 100 mg/dl [facility] [employer] Photogrammetry ID [id number] [facility] Comment:Test Performed by [employer] 04/22/2011 8:02 EST 04/22/2011 8:46 EST us Mary Jauregui MD CHEMISTRY & BLOOD GAS ORDER TEJ Final Result Performing Organization Address [facility] de Phone Number [facility] [address] [place] [address] * (ABNORMAL) GLUCOSE, GLUCOMETER (04/21/2011 21:02 EST) Glucose, Fingerstick 256(H) 70 - 100 mg/dl [facility] [employer] Photogrammetry ID [id number] [facility] Comment:Test Performed by [employer] X 04/21/2011 21:0 2 EST 04/21/2011 21:05 EST us Mary Jauregui MD CHEMISTRY & BLOOD GAS ORDER TEJ Final Result Performing Organization Address [facility] de Phone Number [facility] [address] [place] [address] * (ABNORMAL) GLUCOSE, GLUCOMETER (04/21/2011 17:25 EST) Glucose, Fingerstick 175(H) 70 - 100 mg/dl [facility] [employer] Photogrammetry ID [id number] [facility] Comment:Test Performed by [employer] Gradient X 04/21/2011 17:2 5 EST 04/21/2011 17:27 EST Mary Jauregui MD CHEMISTRY & BLOOD GAS ORDER TEJ Final Result Performing Organization Address [facility] de Phone Number [facility] [address] [place] [address] * (ABNORMAL) GLUCOSE, GLUCOMETER (04/21/2011 12:17 EST) Glucose, Fingerstick 127(H) 70 - 100 mg/dl [facility] [employer] Photogrammetry ID [id number] [facility] Comment:Test Performed by [employer] 04/21/2011 12:1 7 EST 04/21/2011 12:25 EST Mary Jauregui MD CHEMISTRY & BLOOD GAS ORDER TEJ Final Result Performing Organization Address [facility] Phone Number [facility] [address] [place] [address] * (ABNORMAL) GLUCOSE, GLUCOMETER (04/21/2011 8:19 EST) Glucose, Fingerstick 137(H) 70 - 100 mg/dl [facility] [employer] Photogrammetry ID [id number] [facility] Comment:Test Performed by [employer] 04/21/2011 8:19 EST 04/21/2011 8:23 EST us Mary Jauregui MD CHEMISTRY & BLOOD GAS ORDER TEJ Final Result Performing Organization Address [facility] Phone Number [facility] [address] [place] [address] * (ABNORMAL) GLUCOSE, GLUCOMETER (04/20/2011 21:18 EST) Glucose, Fingerstick 215(H) 70 - 100 mg/dl [facility] [employer] Photogrammetry ID [id number] [facility] Comment:Test Performed by [employer] 04/20/2011 21:1 8 EST 04/20/2011 21:22 EST Mary Jauregui MD CHEMISTRY & BLOOD GAS ORDER TEJ Final Result Performing Organization Address [facility] de Phone Number [facility] [address] [place] [address] * (ABNORMAL) GLUCOSE, GLUCOMETER (04/20/2011 16:52 EST) Glucose, Fingerstick 168(H) 70 - 100 mg/dl [facility] [employer] Photogrammetry ID [id number] [facility] Comment:Test Performed by [employer] 04/20/2011 16:5 2 EST 04/20/2011 16:55 EST us Mary Jauregui MD CHEMISTRY & BLOOD GAS ORDER TEJ Final Result Performing Organization Address [facility] Phone Number [facility] [address] [place] [address] * (ABNORMAL) GLUCOSE, GLUCOMETER (04/20/2011 11:53 EST) Glucose, Fingerstick 106(H) 70 - 100 mg/dl [facility] [employer] Photogrammetry ID [id number] [facility] Comment:Test Performed by [employer] 04/20/2011 11:5 3 EST 04/20/2011 11:55 EST us Mary Jauregui MD CHEMISTRY & BLOOD GAS ORDER TEJ Final Result Performing Organization Address [facility] de Phone Number [facility] [address] [place] [address] * (ABNORMAL) GLUCOSE, GLUCOMETER (04/20/2011 7:54 EST) Glucose, Fingerstick 174(H) 70 - 100 mg/dl [facility] [employer] Photogrammetry ID [id number] [facility] Comment:Test Performed by [employer] 04/20/2011 7:54 EST 04/20/2011 7:57 EST us Mary Jauregui MD CHEMISTRY & BLOOD GAS ORDER TEJ Final Result Performing Organization Address [facility] Phone Number [facility] [address] [place] [address] * (ABNORMAL) GLUCOSE, GLUCOMETER (04/19/2011 20:52 EST) Glucose, Fingerstick 191(H) 70 - 100 mg/dl [facility] [employer] Photogrammetry ID [id number] [facility] Comment:Test Performed by [employer] 04/19/2011 20:5 2 EST 04/19/2011 20:54 EST us Mary Jauregui MD CHEMISTRY & BLOOD GAS ORDER TEJ Final Result Performing Organization Address [facility]/State/ZIP Co de Phone Number [facility] [address] [place] [address] * (ABNORMAL) GLUCOSE, GLUCOMETER (04/19/2011 16:48 EST) Glucose, Fingerstick 240(H) 70 - 100 mg/dl [facility] [employer] Photogrammetry ID [id number] [facility] Comment:Test Performed by [employer] 04/19/2011 16:4 8 EST 04/19/2011 16:53 EST us Mary Jauregui MD CHEMISTRY & BLOOD GAS ORDER TEJ Final Result Performing Organization Address [facility] Co de Phone Number [facility] [address] [place] [address] * (ABNORMAL) GLUCOSE, GLUCOMETER (04/19/2011 12:05 EST) Glucose, Fingerstick 114(H) 70 - 100 mg/dl [facility] [employer] Photogrammetry ID [id number] [facility] Comment:Test Performed by [employer] 04/19/2011 12:0 5 EST 04/19/2011 12:08 EST us Mary Jauregui MD CHEMISTRY & BLOOD GAS ORDER TEJ Final Result Performing Organization Address [facility] Co de Phone Number [facility] [address] [place] [address] * (ABNORMAL) GLUCOSE, GLUCOMETER (04/19/2011 8:15 EST) Glucose, Fingerstick 141(H) 70 - 100 mg/dl [facility] [employer] Photogrammetry ID [id number] [facility] Comment:Test Performed by [employer] 04/19/2011 8:15 EST 04/19/2011 8:26 EST us Mary Jauregui MD CHEMISTRY & BLOOD GAS ORDER TEJ Final Result Performing Organization Address [facility] Co de Phone Number [facility] [address] [place] [address] * (ABNORMAL) GLUCOSE, GLUCOMETER (04/18/2011 21:23 EST) Glucose, Fingerstick 147(H) 70 - 100 mg/dl [facility] [employer] Photogrammetry ID [id number] [facility] Comment:Test Performed by [employer] 04/18/2011 21:2 3 EST 04/18/2011 21:28 EST us Mary Jauregui MD CHEMISTRY & BLOOD GAS ORDER TEJ Final Result Performing Organization Address [facility] de Phone Number [facility] [address] [place] [address] * (ABNORMAL) GLUCOSE, GLUCOMETER (04/18/2011 16:51 EST) Glucose, Fingerstick 191(H) 70 - 100 mg/dl [facility] [employer] Photogrammetry ID [id number] [facility] Comment:Test Performed by [employer] 04/18/2011 16:5 1 EST 04/18/2011 16:59 EST us Mary Jauregui MD CHEMISTRY & BLOOD GAS ORDER TEJ Final Result Performing Organization Address [facility] de Phone Number [facility] [address] [place] [address] * GLUCOSE, GLUCOMETER (04/18/2011 13:34 EST) Glucose, Fingerstick 88 70 - 100 mg/dl [facility] [employer] Photogrammetry ID [id number] [facility] Comment:Test Performed by [employer] 04/18/2011 13:3 4 EST 04/18/2011 13:36 EST us Mary Jauregui MD CHEMISTRY & BLOOD GAS ORDER TEJ Final Result Performing Organization Address [facility] de Phone Number [facility] [address] [place] [address] * (ABNORMAL) GLUCOSE, GLUCOMETER (04/18/2011 8:01 EST) Glucose, Fingerstick 132(H) 70 - 100 mg/dl [facility] [employer] Photogrammetry ID [id number] [facility] Comment:Test Performed by [employer] 04/18/2011 8:01 EST 04/18/2011 8:07 EST us Mary Jauregui MD CHEMISTRY & BLOOD GAS ORDER TEJ Final Result Performing Organization Address [facility] de Phone Number [facility] [address] [place] [address] * (ABNORMAL) GLUCOSE, GLUCOMETER (04/17/2011 21:48 EST) Glucose, Fingerstick 214(H) 70 - 100 mg/dl [facility] [employer] Photogrammetry ID [id number] [facility] Comment:Test Performed by [employer] 04/17/2011 21:4 8 EST 04/17/2011 21:51 EST us Mary Jauregui MD CHEMISTRY & BLOOD GAS ORDER TEJ Final Result Performing Organization Address [facility] de Phone Number [facility] [address] [place] [address] * (ABNORMAL) GLUCOSE, GLUCOMETER (04/17/2011 17:05 EST) Glucose, Fingerstick 227(H) 70 - 100 mg/dl [facility] [employer] Photogrammetry ID [id number] [facility] Comment:Test Performed by [employer] 04/17/2011 17:0 5 EST 04/17/2011 17:06 EST us Mary Jauregui MD CHEMISTRY & BLOOD GAS ORDER TEJ Final Result Performing Organization Address [facility] de Phone Number [facility] [address] [place] [address] * (ABNORMAL) GLUCOSE, GLUCOMETER (04/17/2011 12:14 EST) Glucose, Fingerstick 166(H) 70 - 100 mg/dl [facility] [employer] Photogrammetry ID [id number] [facility] Comment:Test Performed by [employer] 04/17/2011 12:1 4 EST 04/17/2011 12:16 EST us Mary Jauregui MD CHEMISTRY & BLOOD GAS ORDER TEJ Final Result Performing Organization Address [facility] Co de Phone Number [facility] [address] [place] [address] * (ABNORMAL) GLUCOSE, GLUCOMETER (04/17/2011 8:19 EST) Glucose, Fingerstick 214(H) 70 - 100 mg/dl [facility] [employer] Photogram[employer] ID [id number] [facility] Comment:Test Performed by [employer] 04/17/2011 8:19 EST 04/17/2011 8:20 EST us Mary Jauregui MD CHEMISTRY & BLOOD GAS ORDER TEJ Final Result Performing Organization Address [facility] de Phone Number [facility] [address] [place] [address] * (ABNORMAL) GLUCOSE, GLUCOMETER (04/16/2011 20:39 EST) Glucose, Fingerstick 257(H) 70 - 100 mg/dl [facility] [employer] Photogrammetry ID [id number] [facility] Comment:Test Performed by [employer] 04/16/2011 20:3 9 EST 04/16/2011 20:44 EST us Mary Jauregui MD CHEMISTRY & BLOOD GAS ORDER TEJ Final Result Performing Organization Address [facility] de Phone Number [facility] [address] [place] [address] * (ABNORMAL) GLUCOSE, GLUCOMETER (04/16/2011 17:32 EST) Glucose, Fingerstick 184(H) 70 - 100 mg/dl [facility] [employer] Photogrammetry ID [id number] [facility] Comment:Test Performed by [employer] 04/16/2011 17:3 2 EST 04/16/2011 17:34 EST us Mary Jauregui MD CHEMISTRY & BLOOD GAS ORDER TEJ Final Result Performing Organization Address [facility]/ZIP Co de Phone Number [facility] [address] [place] [address] * (ABNORMAL) GLUCOSE, GLUCOMETER (04/16/2011 11:05 EST) Glucose, Fingerstick 240(H) 70 - 100 mg/dl [facility] [employer] Photogrammetry ID [id number] [facility] Comment:Test Performed by [employer] 04/16/2011 11:0 5 EST 04/16/2011 11:07 EST us Mary Jauregui MD CHEMISTRY & BLOOD GAS ORDER TEJ Final Result Performing Organization Address [facility] de Phone Number [facility] [address] [place] [address] * (ABNORMAL) GLUCOSE, GLUCOMETER (04/16/2011 8:05 EST) Glucose, Fingerstick 147(H) 70 - 100 mg/dl [facility] [employer] Photogrammetry ID [id number] [facility] Comment:Test Performed by [employer] 04/16/2011 8:05 EST 04/16/2011 8:09 EST us Mary Jauregui MD CHEMISTRY & BLOOD GAS ORDER TEJ Final Result Performing Organization Address [facility] de Phone Number [facility] [address] [place] [address] * (ABNORMAL) GLUCOSE, GLUCOMETER (04/15/2011 21:17 EST) Glucose, Fingerstick 149(H) 70 - 100 mg/dl [facility] [employer] Photogrammetry ID [id number] [facility] Comment:Test Performed by [employer] 04/15/2011 21:1 7 EST 04/15/2011 21:20 EST us Mary Jauregui MD CHEMISTRY & BLOOD GAS ORDER TEJ Final Result Performing Organization Address [facility] Co de Phone Number [facility] [address] [place] [address] * (ABNORMAL) GLUCOSE, GLUCOMETER (04/15/2011 16:52 EST) Glucose, Fingerstick 235(H) 70 - 100 mg/dl [facility] [employer] Photogrammetry ID [id number] [facility] Comment:Test Performed by [employer] 04/15/2011 16:5 2 EST 04/15/2011 16:54 EST us Mary Jauregui MD CHEMISTRY & BLOOD GAS ORDER TEJ Final Result Performing Organization Address [facility] Co de Phone Number [facility] [address] [place] [address] * (ABNORMAL) GLUCOSE, GLUCOMETER (04/15/2011 11:47 EST) Glucose, Fingerstick 169(H) 70 - 100 mg/dl [facility] [employer] Photogrammetry ID [id number] [facility] Comment:Test Performed by rsing Services 04/15/2011 11:4 7 EST 04/15/2011 11:49 EST us Mary Jauregui MD CHEMISTRY & BLOOD GAS ORDER TEJ Final Result Performing Organization Address [facility] Co de Phone Number [facility] [address] [place] [address] * (ABNORMAL) GLUCOSE, GLUCOMETER (04/15/2011 7:42 EST) Glucose, Fingerstick 212(H) 70 - 100 mg/dl [facility] [employer] Photogrammetry ID [id number] [facility] Comment:Test Performed by rsing Gradient X 04/15/2011 7:42 EST 04/15/2011 7:46 EST us Mary Jauregui MD CHEMISTRY & BLOOD GAS ORDER TEJ Final Result Performing Organization Address [facility] Co de Phone Number [facility] [address] [place] [address] * (ABNORMAL) GLUCOSE, GLUCOMETER (04/15/2011 2:06 EST) Glucose, Fingerstick 108(H) 70 - 100 mg/dl [facility] [employer] Photogrammetry ID [id number] [facility] Comment:Test Performed by [employer] 04/15/2011 2:06 EST 04/15/2011 6:18 EST us Mary Jauregui MD CHEMISTRY & BLOOD GAS ORDER TEJ Final Result Performing Organization Address [facility] Phone Number [facility] [address] [place] [address] * (ABNORMAL) GLUCOSE, GLUCOMETER (04/14/2011 22:27 EST) Glucose, Fingerstick 367(H) 70 - 100 mg/dl [facility] [employer] Photogrammetry ID [id number] [facility] Comment:Test Performed by rsing Gradient X 04/14/2011 22:2 7 EST 04/14/2011 22:51 EST us Mary Jauregui MD CHEMISTRY & BLOOD GAS ORDER TEJ Final Result Performing Organization Address [facility] de Phone Number [facility] [address] [place] [address] * (ABNORMAL) GLUCOSE, GLUCOMETER (04/14/2011 16:49 EST) Glucose, Fingerstick 206(H) 70 - 100 mg/dl [facility] [employer] Photogram[employer] ID [id number] [facility] Comment:Test Performed by rsing Gradient X 04/14/2011 16:4 9 EST 04/14/2011 16:50 EST Mary Jauregui MD CHEMISTRY & BLOOD GAS ORDER TEJ Final Result Performing Organization Address [facility] Phone Number [facility] [address] [place] [address] * (ABNORMAL) GLUCOSE, GLUCOMETER (04/14/2011 12:09 EST) Glucose, Fingerstick 238(H) 70 - 100 mg/dl [facility] [employer] Photogrammetry ID [id number] [facility] Comment:Test Performed by [employer] 04/14/2011 12:0 9 EST 04/14/2011 12:17 EST us Mary Jauregui MD CHEMISTRY & BLOOD GAS ORDER TEJ Final Result Performing Organization Address [facility] Phone Number [facility] [address] [place] [address] * (ABNORMAL) GLUCOSE, GLUCOMETER (04/14/2011 7:58 EST) Glucose, Fingerstick 143(H) 70 - 100 mg/dl [facility] [employer] Photogrammetry ID [id number] [facility] Comment:Test Performed by [employer] 04/14/2011 7:58 EST 04/14/2011 8:01 EST us Mary Jauregui MD CHEMISTRY & BLOOD GAS ORDER TEJ Final Result Performing Organization Address [facility] Phone Number [facility] [address] [place] [address] * (ABNORMAL) GLUCOSE, GLUCOMETER (04/13/2011 22:35 EST) Glucose, Fingerstick 209(H) 70 - 100 mg/dl [facility] [employer] Photogrammetry ID [id number] [facility] Comment:Test Performed by [employer] 04/13/2011 22:3 5 EST 04/13/2011 22:38 EST us Mary Jauregui MD CHEMISTRY & BLOOD GAS ORDER TEJ Final Result Performing Organization Address [facility] de Phone Number [facility] [address] [place] [address] * (ABNORMAL) GLUCOSE, GLUCOMETER (04/13/2011 21:12 EST) Glucose, Fingerstick 237(H) 70 - 100 mg/dl [facility] [employer] Photogrammetry ID [id number] [facility] Comment:Test Performed by [employer] 04/13/2011 21:1 2 EST 04/13/2011 21:15 EST us Mary Jauregui MD CHEMISTRY & BLOOD GAS ORDER TEJ Final Result Performing Organization Address [facility] Phone Number [facility] [address] [place] [address] * (ABNORMAL) GLUCOSE, GLUCOMETER (04/13/2011 17:14 EST) Glucose, Fingerstick 254(H) 70 - 100 mg/dl [facility] [employer] Photogrammetry ID [id number] [facility] Comment:Test Performed by [employer] 04/13/2011 17:1 4 EST 04/13/2011 17:15 EST us Mary Jauregui MD CHEMISTRY & BLOOD GAS ORDER TEJ Final Result Performing Organization Address [facility] Phone Number [facility] [address] [place] [address] * (ABNORMAL) GLUCOSE, GLUCOMETER (04/13/2011 11:24 EST) Glucose, Fingerstick 211(H) 70 - 100 mg/dl [facility] [employer] Photogrammetry ID [id number] [facility] Comment:Test Performed by [employer] 04/13/2011 11:2 4 EST 04/13/2011 11:26 EST us Mary Jauregui MD CHEMISTRY & BLOOD GAS ORDER TEJ Final Result Performing Organization Address [facility] Phone Number [facility] [address] [place] [address] * (ABNORMAL) GLUCOSE, GLUCOMETER (04/13/2011 7:39 EST) Glucose, Fingerstick 164(H) 70 - 100 mg/dl [facility] [employer] Photogrammetry ID [id number] [facility] Comment:Test Performed by [employer] 04/13/2011 7:39 EST 04/13/2011 7:40 EST us Mary Jauregui MD CHEMISTRY & BLOOD GAS ORDER TEJ Final Result Performing Organization Address [facility]/State/ZIP Co de Phone Number [facility] [address] [place] [address] * (ABNORMAL) GLUCOSE, GLUCOMETER (04/12/2011 20:47 EST) Glucose, Fingerstick 208(H) 70 - 100 mg/dl [facility] [employer] Photogrammetry ID [id number] [facility] Comment:Test Performed by [employer] 04/12/2011 20:4 7 EST 04/13/2011 1:47 EST us Mary Jauregui MD CHEMISTRY & BLOOD GAS ORDER TEJ Final Result Performing Organization Address [facility] de Phone Number [facility] [address] [place] [address] * (ABNORMAL) GLUCOSE, GLUCOMETER (04/12/2011 17:00 EST) Glucose, Fingerstick 223(H) 70 - 100 mg/dl [facility] [employer] Photogrammetry ID [id number] [facility] Comment:Test Performed by [employer] 04/12/2011 17:0 0 EST 04/12/2011 17:02 EST us Mary Jauregui MD CHEMISTRY & BLOOD GAS ORDER TEJ Final Result Performing Organization Address [facility] de Phone Number [facility] [address] [place] [address] * (ABNORMAL) GLUCOSE, GLUCOMETER (04/12/2011 11:54 EST) Glucose, Fingerstick 183(H) 70 - 100 mg/dl [facility] [employer] Photogrammetry ID [id number] [facility] Comment:Test Performed by [employer] 04/12/2011 11:5 4 EST 04/12/2011 11:55 EST us Mary Jauregui MD CHEMISTRY & BLOOD GAS ORDER TEJ Final Result Performing Organization Address [facility] Co de Phone Number [facility] [address] [place] [address] * (ABNORMAL) GLUCOSE, GLUCOMETER (04/12/2011 7:34 EST) Glucose, Fingerstick 173(H) 70 - 100 mg/dl [facility] [employer] Photogrammetry ID [id number] [facility] Comment:Test Performed by rsing Services 04/12/2011 7:34 EST 04/12/2011 8:00 EST us Mary Jauregui MD CHEMISTRY & BLOOD GAS ORDER TEJ Final Result Performing Organization Address [facility] de Phone Number [facility] [address] [place] [address] * (ABNORMAL) GLUCOSE, GLUCOMETER (04/11/2011 20:57 EST) Glucose, Fingerstick 242(H) 70 - 100 mg/dl [facility] [employer] Photogram[place] ID [id number] [facility] Comment:Test [facility] 04/11/2011 20:5 7 EST 04/11/2011 21:01 EST us Mary Jauregui MD CHEMISTRY & BLOOD GAS ORDER TEJ Final Result Performing Organization Address [facility] de Phone Number [facility] [address] [place] [address] * (ABNORMAL) GLUCOSE, GLUCOMETER (04/11/2011 17:14 EST) Glucose, Fingerstick 164(H) 70 - 100 mg/dl [facility] [employer] Photogrammetry ID [id number] [facility] Comment:Test Performed by rsing Services 04/11/2011 17:1 4 EST 04/11/2011 17:17 EST Mary Jauregui MD CHEMISTRY & BLOOD GAS ORDER TEJ Final Result Performing Organization Address [facility] de Phone Number [facility] [address] [place] [address] * (ABNORMAL) GLUCOSE, GLUCOMETER (04/11/2011 7:58 EST) Glucose, Fingerstick 106(H) 70 - 100 mg/dl [facility] [employer] Photogrammetry ID [id number] [facility] Comment:Test Performed by [facility] 04/11/2011 7:58 EST 04/11/2011 8:08 EST Mary Jauregui MD CHEMISTRY & BLOOD GAS ORDER TEJ Final Result Performing Organization Address [facility] de Phone Number [facility] [address] [place] [address] * (ABNORMAL) GLUCOSE, GLUCOMETER (04/10/2011 21:09 EST) Glucose, Fingerstick 280(H) 70 - 100 mg/dl [facility] [employer] Photogrammetry ID [id number] [facility] Comment:Test Performed by [facility] 04/10/2011 21:0 9 EST 04/10/2011 21:11 EST Mary Jauregui MD CHEMISTRY & BLOOD GAS ORDER TEJ Final Result Performing Organization Address [facility] Co de Phone Number [facility] [address] [place] [address] * (ABNORMAL) GLUCOSE, GLUCOMETER (04/10/2011 17:00 EST) Glucose, Fingerstick 226(H) 70 - 100 mg/dl [facility] [employer] Photogrammetry ID [id number] [facility] Comment:Test Performed by [facility] 04/10/2011 17:0 0 EST 04/10/2011 17:02 EST us Mary Jauregui MD CHEMISTRY & BLOOD GAS ORDER TEJ Final Result Performing Organization Address [facility] Co de Phone Number [facility] [address] [place] [address] * (ABNORMAL) GLUCOSE, GLUCOMETER (04/10/2011 11:55 EST) Glucose, Fingerstick 150(H) 70 - 100 mg/dl [facility] [employer] Photogrammetry ID [id number] [facility] Comment:Test Performed by [facility] 04/10/2011 11:5 5 EST 04/10/2011 11:57 EST us Mary Jauregui MD CHEMISTRY & BLOOD GAS ORDER TEJ Final Result Performing Organization Address [facility] Phone Number [facility] [address] [place] [address] * (ABNORMAL) GLUCOSE, GLUCOMETER (04/10/2011 7:59 EST) Glucose, Fingerstick 221(H) 70 - 100 mg/dl [facility] [employer] Photogrammetry ID [id number] [facility] Comment:Test Performed by [facility] 04/10/2011 7:59 EST 04/10/2011 8:02 EST us Mary Jauregui MD CHEMISTRY & BLOOD GAS ORDER TEJ Final Result Performing Organization Address [facility] Phone Number [facility] [address] [place] [address] * (ABNORMAL) GLUCOSE, GLUCOMETER (04/09/2011 21:20 EST) Glucose, Fingerstick 295(H) 70 - 100 mg/dl [facility] [employer] Photogrammetry ID [id number] [facility] Comment:Test Performed by [facility] [facility] 04/09/2011 21:2 0 EST 04/09/2011 21:22 EST us Mary Jauregui MD CHEMISTRY & BLOOD GAS ORDER TEJ Final Result Performing Organization Address [facility] de Phone Number [facility] [address] [place] [address] * (ABNORMAL) GLUCOSE, GLUCOMETER (04/09/2011 17:29 EST) Glucose, Fingerstick 168(H) 70 - 100 mg/dl [facility] [employer] Pilot Photogrammetry ID [id number] [facility] Comment:Test Performed by [facility] [facility] 04/09/2011 17:2 9 EST 04/09/2011 17:30 EST us Mary Jauregui MD CHEMISTRY & BLOOD GAS ORDER TEJ Final Result Performing Organization Address [facility]/ZIP Co de Phone Number [facility] [address] [place] [address] * (ABNORMAL) GLUCOSE, GLUCOMETER (04/09/2011 12:11 EST) Glucose, Fingerstick 218(H) 70 - 100 mg/dl [facility] [employer] Photogrammetry ID [id number] [facility] Comment:Test Performed by [facility] [facility] 04/09/2011 12:1 1 EST 04/09/2011 12:13 EST us Mary Jauregui MD CHEMISTRY & BLOOD GAS ORDER TEJ Final Result Performing Organization Address [facility] de Phone Number [facility] [address] [place] [address] * (ABNORMAL) GLUCOSE, GLUCOMETER (04/09/2011 10:49 EST) Glucose, Fingerstick 221(H) 70 - 100 mg/dl [facility] [employer] Pilot Photogrammetry ID [id number] [facility] Comment:Test Performed by [facility] 04/09/2011 10:4 9 EST 04/09/2011 10:53 EST us Mary Jauregui MD CHEMISTRY & BLOOD GAS ORDER TEJ Final Result Performing Organization Address [facility] de Phone Number [facility] [address] [place] [address] * (ABNORMAL) GLUCOSE, GLUCOMETER (04/09/2011 7:59 EST) Glucose, Fingerstick 177(H) 70 - 100 mg/dl [facility] [employer] Photogrammetry ID [id number] [facility] Comment:Test Performed by [facility] 04/09/2011 7:59 EST 04/09/2011 8:02 EST us Mary Jauregui MD CHEMISTRY & BLOOD GAS ORDER TEJ Final Result Performing Organization Address [facility]/ZIP Co de Phone Number [facility] [address] [place] [address] * (ABNORMAL) GLUCOSE, GLUCOMETER (04/08/2011 21:04 EST) Glucose, Fingerstick 228(H) 70 - 100 mg/dl [facility] [employer] Photogrammetry ID [id number] [facility] Comment:Test Performed by [facility] 04/08/2011 21:0 4 EST 04/08/2011 21:08 EST us Mary Jauregui MD CHEMISTRY & BLOOD GAS ORDER TEJ Final Result Performing Organization Address [facility] Co de Phone Number [facility] [address] [place] [address] * (ABNORMAL) GLUCOSE, GLUCOMETER (04/08/2011 17:22 EST) Glucose, Fingerstick 163(H) 70 - 100 mg/dl [facility] [employer] Photogrammetry ID [id number] [facility] Comment:Test Performed by [facility] 04/08/2011 17:2 2 EST 04/08/2011 17:25 EST us Mary Jauregui MD CHEMISTRY & BLOOD GAS ORDER TEJ Final Result Performing Organization Address [facility] Co de Phone Number [facility] [address] [place] [address] * (ABNORMAL) GLUCOSE, GLUCOMETER (04/08/2011 11:41 EST) Glucose, Fingerstick 254(H) 70 - 100 mg/dl [facility] [employer] Photogrammetry ID [id number] [facility] Comment:Test Performed by [facility] 04/08/2011 11:4 1 EST 04/08/2011 11:43 EST us Mary Jauregui MD CHEMISTRY & BLOOD GAS ORDER TEJ Final Result Performing Organization Address [facility] Co de Phone Number [facility] [address] [place] [address] * (ABNORMAL) GLUCOSE, GLUCOMETER (04/08/2011 8:08 EST) Glucose, Fingerstick 251(H) 70 - 100 mg/dl [facility] [employer] Photogrammetry ID [id number] [facility] Comment:Test Performed by [facility]sing Services 04/08/2011 8:08 EST 04/08/2011 8:11 EST Mary Jauregui MD CHEMISTRY & BLOOD GAS ORDER TEJ Final Result Performing Organization Address [facility] de Phone Number [facility] [address] [place] [address] * (ABNORMAL) GLUCOSE, GLUCOMETER (04/07/2011 23:56 EST) Glucose, Fingerstick 203(H) 70 - 100 mg/dl [facility] [employer] Photogrammetry ID [id number] [facility] Comment:Test [facility] 04/07/2011 23:5 6 EST 04/07/2011 23:59 EST Mary Jauregui MD CHEMISTRY & BLOOD GAS ORDER TEJ Final Result Performing Organization Address [facility] Phone Number [facility] [address] [place] [address] * (ABNORMAL) GLUCOSE, GLUCOMETER (04/07/2011 20:46 EST) Glucose, Fingerstick 271(H) 70 - 100 mg/dl [facility] [employer] Pilot Photogrammetry ID [id number] [facility] Comment:Test [facility] by [facility] 04/07/2011 20:4 6 EST 04/07/2011 20:48 EST Mary Jauregui MD CHEMISTRY & BLOOD GAS ORDER TEJ Final Result Performing Organization Address [facility] de Phone Number [facility] [address] [place] [address] * (ABNORMAL) GLUCOSE, GLUCOMETER (04/07/2011 17:02 EST) Glucose, Fingerstick 168(H) 70 - 100 mg/dl [facility] [employer] Pilot Photogrammetry ID [id number] [facility] Comment:Test Performed by [facility] 04/07/2011 17:0 2 EST 04/07/2011 17:04 EST us Mary Jauregui MD CHEMISTRY & BLOOD GAS ORDER TEJ Final Result Performing Organization Address [facility] de Phone Number [facility] [address] [place] [address] * (ABNORMAL) GLUCOSE, GLUCOMETER (04/07/2011 11:46 EST) Glucose, Fingerstick 255(H) 70 - 100 mg/dl [facility] [employer] Photogrammetry ID [id number] [facility] Comment:Test Performed by [employer] [facility] 04/07/2011 11:4 6 EST 04/07/2011 11:49 EST us Mary Jauregui MD CHEMISTRY & BLOOD GAS ORDER TEJ Final Result Performing Organization Address [facility] Phone Number [facility] [address] [place] [address] * ECG REPORT - SCANNED (04/07/2011 8:08 EST) 04/07/2011 8:08 EST Narrative Transcriptions [employer], Scan - 04/07/2011 8:08 EST us Scan [employer] PROCEDURE/MINOR SURGICAL ORDE RABLES Final Result * (ABNORMAL) GLUCOSE, GLUCOMETER (04/07/2011 7:36 EST) Glucose, Fingerstick 163(H) 70 - 100 mg/dl [facility] [employer] Photogrammetry ID [id number] [facility] Comment:Test Performed by [employer] [facility] 04/07/2011 7:36 EST 04/07/2011 7:39 EST us Mary Jauregui MD CHEMISTRY & BLOOD GAS ORDER TEJ Final Result Performing Organization Address [facility] Co de Phone Number [facility] [address] [place] [address] * (ABNORMAL) GLUCOSE, GLUCOMETER (04/06/2011 21:21 EST) Glucose, Fingerstick 216(H) 70 - 100 mg/dl [facility] [employer] Photogrammetry ID [id number] [facility] Comment:Test Performed by [facility] 04/06/2011 21:2 1 EST 04/06/2011 21:31 EST us Mary Jauregui MD CHEMISTRY & BLOOD GAS ORDER TEJ Final Result Performing Organization Address [facility] Co de Phone Number [facility] [address] [place] [address] * (ABNORMAL) GLUCOSE, GLUCOMETER (04/06/2011 19:25 EST) Glucose, Fingerstick 272(H) 70 - 100 mg/dl [facility] [employer] Photogrammetry ID [id number] [facility] Comment:Test Performed by [facility] 04/06/2011 19:2 5 EST 04/06/2011 19:30 EST us Mary Jauregui MD CHEMISTRY & BLOOD GAS ORDER TEJ Final Result Performing Organization Address [facility] Co de Phone Number [facility] [address] [place] [address] * (ABNORMAL) GLUCOSE, GLUCOMETER (04/06/2011 12:06 EST) Glucose, Fingerstick 200(H) 70 - 100 mg/dl [facility] [employer] Pilot Photogrammetry ID [id number] [facility] Comment:Test Performed by [employer] [facility] 04/06/2011 12:0 6 EST 04/06/2011 12:07 EST Mary Jauregui MD CHEMISTRY & BLOOD GAS ORDER TEJ Final Result Performing Organization Address [facility] Co de Phone Number [facility] [address] [place] [address] * (ABNORMAL) GLUCOSE, GLUCOMETER (04/06/2011 8:02 EST) Glucose, Fingerstick 267(H) 70 - 100 mg/dl [facility] [employer] Photogrammetry ID [id number] [facility] Comment:Test [facility] 04/06/2011 8:02 EST 04/06/2011 8:04 EST Mary Jauregui MD CHEMISTRY & BLOOD GAS ORDER TEJ Final Result Performing Organization Address [facility] de Phone Number [facility] [address] [place] [address] * (ABNORMAL) GLUCOSE, GLUCOMETER (04/05/2011 21:37 EST) Glucose, Fingerstick 250(H) 70 - 100 mg/dl [facility] [employer] Photogrammetry ID [id number] [facility] Comment:Test Performed by [employer] 04/05/2011 21:3 7 EST 04/05/2011 23:01 EST Mary Jauregui MD CHEMISTRY & BLOOD GAS ORDER TEJ Final Result Performing Organization Address [facility] de Phone Number [facility] [address] [place] [address] * (ABNORMAL) GLUCOSE, GLUCOMETER (04/05/2011 17:22 EST) Glucose, Fingerstick 178(H) 70 - 100 mg/dl [facility] [employer] Pilot Photogrammetry ID [id number] [facility] Comment:Test Performed by [facility] 04/05/2011 17:2 2 EST 04/05/2011 17:23 EST Mary Jauregui MD CHEMISTRY & BLOOD GAS ORDER TEJ Final Result Performing Organization Address [facility] de Phone Number [facility] [address] [place] [address] * (ABNORMAL) GLUCOSE, GLUCOMETER (04/05/2011 11:52 EST) Glucose, Fingerstick 260(H) 70 - 100 mg/dl [facility] [employer] Photogrammetry ID [id number] [facility] Comment:Test Performed by [facility] 04/05/2011 11:5 2 EST 04/05/2011 11:54 EST Mary Jauregui MD CHEMISTRY & BLOOD GAS ORDER TEJ Final Result Performing Organization Address [facility] de Phone Number [facility] [address] [place] [address] * (ABNORMAL) GLUCOSE, GLUCOMETER (04/05/2011 8:13 EST) Glucose, Fingerstick 155(H) 70 - 100 mg/dl [facility] [employer] Photogrammetry ID [id number] [facility] Comment:Test Performed by [facility] 04/05/2011 8:13 EST 04/05/2011 8:18 EST Mary Jauregui MD CHEMISTRY & BLOOD GAS ORDER TEJ Final Result Performing Organization Address [facility] de Phone Number [facility] [address] [place] [address] * (ABNORMAL) GLUCOSE, GLUCOMETER (04/04/2011 20:50 EST) Glucose, Fingerstick 200(H) 70 - 100 mg/dl [facility] [employer] Photogrammetry ID [id number] [facility] Comment:Test Performed by [facility] [facility] 04/04/2011 20:5 0 EST 04/04/2011 20:54 EST Mary Jauregui MD CHEMISTRY & BLOOD GAS ORDER TEJ Final Result Performing Organization Address [facility] de Phone Number [facility] [address] [place] [address] * (ABNORMAL) GLUCOSE, GLUCOMETER (04/04/2011 16:49 EST) Glucose, Fingerstick 124(H) 70 - 100 mg/dl [facility] [employer] Photogrammetry ID [id number] [facility] Comment:Test Performed by [facility] 04/04/2011 16:4 9 EST 04/04/2011 16:52 EST us Mary Jauregui MD CHEMISTRY & BLOOD GAS ORDER TEJ Final Result [facility] [address] [place] [address] * CONSULT NUTRITION (04/04/2011 14:55 EST) Narrative [...] and follow up BENITO MEJIA RD Pager [phone] Procedure Note Benito Mejia RD - 04/04/2011 [...] suggest check methylmalonic acid to assess for [id number] Suggest p.o. MVM to assure pt. Meets needs for vitamins. likely vitamin Ddeficient d/t age, season and current illness. Please check vitamin Dlevel Rec: 1) will try to meet with pt again on Thursday 2) please check methylmalonic acid and vitamin D 3) p.o. Multivitamin and mineral daily Ongoing monitor and follow up BENITO MEJIA RD Pager [phone] Mary Jauregui MD INPATIENT CONSULT ORDERABLE S Final Result Performing Organization Address [facility] de Phone Number POINT OF CARE * (ABNORMAL) GLUCOSE, GLUCOMETER (04/04/2011 11:12 EST) Glucose, Fingerstick 272(H) 70 - 100 mg/dl [facility] [employer] Photogrammetry ID [id number] [facility] Comment:Test Performed by [employer] 04/04/2011 11:1 2 EST 04/04/2011 11:25 EST us Mary Jauregui MD CHEMISTRY & BLOOD GAS ORDER TEJ Final Result Performing Organization Address [facility] de Phone Number [facility] [address] [place] [address] * (ABNORMAL) GLUCOSE, GLUCOMETER (04/04/2011 8:28 EST) Glucose, Fingerstick 139(H) 70 - 100 mg/dl [facility] [employer] Photogrammetry ID [id number] [facility] Comment:Test Performed by [employer] 04/04/2011 8:28 EST 04/04/2011 8:40 EST Mary Jauregui MD CHEMISTRY & BLOOD GAS ORDER TEJ Final Result Performing Organization Address [facility] de Phone Number [facility] [address] [place] [address] * (ABNORMAL) GLUCOSE, GLUCOMETER (04/03/2011 16:51 EST) Glucose, Fingerstick 169(H) 70 - 100 mg/dl [facility] [employer] Photogrammetry ID [id number] [facility] Comment:Test Performed by [facility] [facility] 04/03/2011 16:5 1 EST 04/03/2011 16:53 EST Mary Jauregui MD CHEMISTRY & BLOOD GAS ORDER TEJ Final Result Performing Organization Address [facility] de Phone Number [facility] [address] [place] [address] * (ABNORMAL) GLUCOSE, GLUCOMETER (04/03/2011 11:58 EST) Glucose, Fingerstick 241(H) 70 - 100 mg/dl [facility] [employer] Photogrammetry ID [id number] [facility] Comment:Test Performed by [facility] 04/03/2011 11:5 8 EST 04/03/2011 12:01 EST Mary Jauregui MD CHEMISTRY & BLOOD GAS ORDER TEJ Final Result Performing Organization Address [facility] Phone Number [facility] [address] [place] [address] * (ABNORMAL) GLUCOSE, GLUCOMETER (04/03/2011 7:53 EST) Glucose, Fingerstick 195(H) 70 - 100 mg/dl [facility] [employer] Photogrammetry ID [id number] [facility] Comment:Test Performed by [employer] 04/03/2011 7:53 EST 04/03/2011 7:54 EST us Mary Jauregui MD CHEMISTRY & BLOOD GAS ORDER TEJ Final Result Performing Organization Address [facility] de Phone Number [facility] [address] [place] [address] * (ABNORMAL) GLUCOSE, GLUCOMETER (04/02/2011 20:30 EST) Glucose, Fingerstick 214(H) 70 - 100 mg/dl [facility] [employer] Photogrammetry ID [id number] [facility] Comment:Test Performed by [facility] [facility] 04/02/2011 20:3 0 EST 04/02/2011 20:32 EST us Mary Jauregui MD CHEMISTRY & BLOOD GAS ORDER TEJ Final Result Performing Organization Address [facility] Co de Phone Number [facility] [address] [place] [address] * (ABNORMAL) GLUCOSE, GLUCOMETER (04/02/2011 16:50 EST) Glucose, Fingerstick 131(H) 70 - 100 mg/dl [facility] [employer] Photogrammetry ID [id number] [facility] Comment:Test Performed by [employer] 04/02/2011 16:5 0 EST 04/02/2011 16:52 EST us Mary Jauregui MD CHEMISTRY & BLOOD GAS ORDER TEJ Final Result Performing Organization Address [facility] de Phone Number [facility] [address] [place] [address] * (ABNORMAL) GLUCOSE, GLUCOMETER (04/02/2011 11:51 EST) Glucose, Fingerstick 277(H) 70 - 100 mg/dl [facility] [employer] Photogrammetry ID [id number] [facility] Comment:Test Performed by [employer] 04/02/2011 11:5 1 EST 04/02/2011 11:52 EST Mary Jauregui MD CHEMISTRY & BLOOD GAS ORDER TEJ Final Result Performing Organization Address [facility] de Phone Number [facility] [address] [place] [address] * (ABNORMAL) GLUCOSE, GLUCOMETER (04/02/2011 10:09 EST) Glucose, Fingerstick 184(H) 70 - 100 mg/dl [facility] [employer] Photogrammetry ID [id number] [facility] Comment:Test Performed by [employer] 04/02/2011 10:0 9 EST 04/02/2011 10:10 EST Sajan Stanford MD CHEMISTRY & BLOOD GAS ORDERA BLES Final Result Performing Organization Address [facility]/ZIP Co de Phone Number [facility] [address] [place] [address] * (ABNORMAL) GLUCOSE, GLUCOMETER (04/02/2011 8:03 EST) Glucose, Fingerstick 130(H) 70 - 100 mg/dl [facility] [employer] Photogrammetry ID [id number] [facility] Comment:Test Performed by [employer] 04/02/2011 8:03 EST 04/02/2011 8:06 EST Sajan Stanford MD CHEMISTRY & BLOOD GAS ORDERA BLES Final Result Performing Organization Address [facility] de Phone Number [facility] [address] [place] [address] * (ABNORMAL) GLUCOSE, GLUCOMETER (04/01/2011 21:19 EST) Glucose, Fingerstick 264(H) 70 - 100 mg/dl [facility] [employer] Photogrammetry ID [id number] [facility] Comment:Test Performed by [employer] 04/01/2011 21:1 9 EST 04/01/2011 21:22 EST Sajan Stanford MD CHEMISTRY & BLOOD GAS ORDERA BLES Final Result Performing Organization Address [facility] de Phone Number [facility] [address] [place] [address] * (ABNORMAL) GLUCOSE, GLUCOMETER (04/01/2011 17:03 EST) Glucose, Fingerstick 200(H) 70 - 100 mg/dl [facility] [employer] Photogrammetry ID [id number] [facility] Comment:Test Performed by [employer] 04/01/2011 17:0 3 EST 04/01/2011 17:06 EST Sajan Stanford MD CHEMISTRY & BLOOD GAS ORDERA BLES Final Result Performing Organization Address [facility] Co de Phone Number [facility] [address] [place] [address] * (ABNORMAL) GLUCOSE, GLUCOMETER (04/01/2011 11:54 EST) Glucose, Fingerstick 187(H) 70 - 100 mg/dl [facility] [employer] Photogrammetry ID [id number] [facility] Comment:Test Performed by [facility] [employer] 04/01/2011 11:5 4 EST 04/01/2011 11:55 EST Sajan Stanford MD CHEMISTRY & BLOOD GAS ORDERA BLES Final Result Performing Organization Address [facility] de Phone Number [facility] [address] [place] [address] * (ABNORMAL) GLUCOSE, GLUCOMETER (04/01/2011 8:00 EST) Glucose, Fingerstick 146(H) 70 - 100 mg/dl [facility] [employer] Photogrammetry ID [id number] [facility] Comment:Test Performed by [facility] 04/01/2011 8:00 EST 04/01/2011 8:03 EST Sajan Stanford MD CHEMISTRY & BLOOD GAS ORDERA BLES Final Result Performing Organization Address [facility] de Phone Number [facility] [address] [place] [address] * NORTRIPTYLINE (03/31/2011 20:54 EST) Nortriptyline 87 ng/mL [facility] Comment: (Note) -- REFERENCE VALUE -- 70-170 (Therapeutic concentration), >=500 (Toxic concentration) Performed by: [facility], [address], [place] [address], Layout Man: Yumiko Katz, Ph.D. Blood specimen (specimen) 03/31/2011 20:54 EST 03/31/2011 21:20 EST Arthur Davila MD CHEMISTRY & BLOOD GAS ORDER TEJ Final Result Performing Organization Address [facility] de Phone Number [facility] [address] [place] [address] * (ABNORMAL) GLUCOSE, GLUCOMETER (03/31/2011 20:47 EST) Glucose, Fingerstick 334(H) 70 - 100 mg/dl [facility] [employer] Photogrammetry ID [id number] [facility] Comment:Test Performed by [employer] 03/31/2011 20:4 7 EST 03/31/2011 20:49 EST Sajan Stanford MD CHEMISTRY & BLOOD GAS ORDERA BLES Final Result Performing Organization Address [facility] Co de Phone Number [facility] [address] [place] [address] * (ABNORMAL) GLUCOSE, GLUCOMETER (03/31/2011 17:12 EST) Glucose, Fingerstick 109(H) 70 - 100 mg/dl [facility] [employer] Pilot Photogrammetry ID [id number] [facility] Comment:Test Performed by [employer] 03/31/2011 17:1 2 EST 03/31/2011 17:14 EST Sajan Stanford MD CHEMISTRY & BLOOD GAS ORDERA BLES Final Result Performing Organization Address [facility] Co de Phone Number [facility] [address] [place] [address] * (ABNORMAL) GLUCOSE, GLUCOMETER (03/31/2011 11:29 EST) Glucose, Fingerstick 255(H) 70 - 100 mg/dl [facility] [employer] Pilot Photogrammetry ID [id number] [facility] Comment:Test Performed by [employer] 03/31/2011 11:2 9 EST 03/31/2011 11:31 EST Sajan Stanford MD CHEMISTRY & BLOOD GAS ORDERA BLES Final Result Performing Organization Address City/[facility]/ZIP Co de Phone Number [facility] [address] [place] [address] * (ABNORMAL) GLUCOSE, GLUCOMETER (03/31/2011 8:39 EST) Glucose, Fingerstick 128(H) 70 - 100 mg/dl [facility] [employer] Photogrammetry ID [id number] [facility] Comment:Test Performed by [employer] 03/31/2011 8:39 EST 03/31/2011 8:46 EST Sajan Stanford MD CHEMISTRY & BLOOD GAS ORDERA BLES Final Result Performing Organization Address City/[facility]/ZIP Co de Phone Number [facility] [address] [place] [address] * (ABNORMAL) GLUCOSE, GLUCOMETER (03/30/2011 20:58 EST) Glucose, Fingerstick 238(H) 70 - 100 mg/dl [facility] [employer] Photogrammetry ID [id number] [facility] Comment:Test Performed by rsing Services 03/30/2011 20:5 8 EST 03/30/2011 21:03 EST Sajan Stanford MD CHEMISTRY & BLOOD GAS ORDERA BLES Final Result Performing Organization Address [facility] Co de Phone Number [facility] [address] [place] [address] * (ABNORMAL) GLUCOSE, GLUCOMETER (03/30/2011 16:54 EST) Glucose, Fingerstick 171(H) 70 - 100 mg/dl [facility] [employer] Photogrammetry ID [id number] [facility] Comment:Test Performed by rsing Services 03/30/2011 16:5 4 EST 03/30/2011 16:57 EST Sajan Stanford MD CHEMISTRY & BLOOD GAS ORDERA BLES Final Result Performing Organization Address [facility]/ZIP Co de Phone Number [facility] [address] [place] [address] * (ABNORMAL) GLUCOSE, GLUCOMETER (03/30/2011 11:53 EST) Glucose, Fingerstick 257(H) 70 - 100 mg/dl [facility] [employer] Photogrammetry ID [id number] [facility] Comment:Test Performed by [employer] 03/30/2011 11:5 3 EST 03/30/2011 11:56 EST Sajan Stanford MD CHEMISTRY & BLOOD GAS ORDERA BLES Final Result Performing Organization Address [facility] de Phone Number [facility] [address] [place] [address] * (ABNORMAL) GLUCOSE, GLUCOMETER (03/30/2011 7:42 EST) Glucose, Fingerstick 125(H) 70 - 100 mg/dl [facility] [employer] Photogrammetry ID [id number] [facility] Comment:Test Performed by rsing Services 03/30/2011 7:42 EST 03/30/2011 7:47 EST Sajan Stanford MD CHEMISTRY & BLOOD GAS ORDERA BLES Final Result Performing Organization Address [facility] de Phone Number [facility] [address] [place] [address] * (ABNORMAL) GLUCOSE, GLUCOMETER (03/30/2011 0:13 EST) Glucose, Fingerstick 185(H) 70 - 100 mg/dl [facility] [employer] Pilot Photogrammetry ID [id number] [facility] Comment:Test Performed by rsing Services 03/30/2011 0:13 EST 03/30/2011 5:34 EST Sajan Stanford MD CHEMISTRY & BLOOD GAS ORDERA BLES Final Result Performing Organization Address [facility] de Phone Number [facility] [address] [place] [address] * (ABNORMAL) GLUCOSE, GLUCOMETER (03/29/2011 20:47 EST) Glucose, Fingerstick 344(H) 70 - 100 mg/dl [facility] [employer] Photogrammetry ID [id number] [facility] Comment:Test Performed by [employer] 03/29/2011 20:4 7 EST 03/29/2011 20:51 EST Sajan Stanford MD CHEMISTRY & BLOOD GAS ORDERA BLES Final Result Performing Organization Address [facility] Co de Phone Number [facility] [address] [place] [address] * (ABNORMAL) GLUCOSE, GLUCOMETER (03/29/2011 17:06 EST) Glucose, Fingerstick 138(H) 70 - 100 mg/dl [facility] [employer] Photogrammetry ID [id number] [facility] Comment:Test Performed by [employer] 03/29/2011 17:0 6 EST 03/29/2011 17:08 EST Sajan Stanford MD CHEMISTRY & BLOOD GAS ORDERA BLES Final Result Performing Organization Address [facility] Co de Phone Number [facility] [address] [place] [address] * (ABNORMAL) GLUCOSE, GLUCOMETER (03/29/2011 12:19 EST) Glucose, Fingerstick 217(H) 70 - 100 mg/dl [facility] [employer] Photogrammetry ID [id number] [facility] Comment:Test Performed by [employer] 03/29/2011 12:1 9 EST 03/29/2011 12:21 EST Sajan Stanford MD CHEMISTRY & BLOOD GAS ORDERA BLES Final Result Performing Organization Address [facility] de Phone Number [facility] [address] [place] [address] * (ABNORMAL) GLUCOSE, GLUCOMETER (03/29/2011 7:52 EST) Glucose, Fingerstick 101(H) 70 - 100 mg/dl [facility] [employer] Photogrammetry ID [id number] [facility] Comment:Test Performed by [employer] 03/29/2011 7:52 EST 03/29/2011 7:55 EST Sajan Stanford MD CHEMISTRY & BLOOD GAS ORDERA BLES Final Result Performing Organization Address [facility] de Phone Number [facility] [address] [place] [address] * (ABNORMAL) GLUCOSE, GLUCOMETER (03/28/2011 21:14 EST) Glucose, Fingerstick 214(H) 70 - 100 mg/dl [facility] [employer] Photogrammetry ID [id number] [facility] Comment:Test Performed by [employer] 03/28/2011 21:1 4 EST 03/28/2011 21:17 EST Sajan Stanford MD CHEMISTRY & BLOOD GAS ORDERA BLES Final Result Performing Organization Address [facility] Phone Number [facility] [address] [place] [address] * (ABNORMAL) GLUCOSE, GLUCOMETER (03/28/2011 17:14 EST) Glucose, Fingerstick 218(H) 70 - 100 mg/dl [facility] [employer] Photogrammetry ID [id number] [facility] Comment:Test Performed by [employer] 03/28/2011 17:1 4 EST 03/28/2011 17:18 EST Sajan Stanford MD CHEMISTRY & BLOOD GAS ORDERA BLES Final Result Performing Organization Address [facility] de Phone Number [facility] [address] [place] [address] * (ABNORMAL) GLUCOSE, GLUCOMETER (03/28/2011 12:16 EST) Glucose, Fingerstick 264(H) 70 - 100 mg/dl [facility] [employer] Photogrammetry ID [id number] [facility] Comment:Test Performed by [employer] 03/28/2011 12:1 6 EST 03/28/2011 12:18 EST Sajan Stanford MD CHEMISTRY & BLOOD GAS ORDERA BLES Final Result Performing Organization Address [facility] Co de Phone Number [facility] [address] [place] [address] * (ABNORMAL) GLUCOSE, GLUCOMETER (03/28/2011 8:15 EST) Glucose, Fingerstick 119(H) 70 - 100 mg/dl [facility] [employer] Photogrammetry ID [id number] [facility] Comment:Test Performed by [employer] 03/28/2011 8:15 EST 03/28/2011 8:53 EST Sajan Stanford MD CHEMISTRY & BLOOD GAS ORDERA BLES Final Result Performing Organization Address [facility] de Phone Number [facility] [address] [place] [address] * (ABNORMAL) GLUCOSE, GLUCOMETER (03/27/2011 21:10 EST) Glucose, Fingerstick 175(H) 70 - 100 mg/dl [facility] [employer] Photogrammetry ID [id number] [facility] Comment:Test Performed by [employer] 03/27/2011 21:1 0 EST 03/27/2011 21:11 EST Sajan Stanford MD CHEMISTRY & BLOOD GAS ORDERA BLES Final Result Performing Organization Address [facility] de Phone Number [facility] [address] [place] [address] * (ABNORMAL) GLUCOSE, GLUCOMETER (03/27/2011 17:11 EST) Glucose, Fingerstick 200(H) 70 - 100 mg/dl [facility] [employer] Photogrammetry ID [id number] [facility] Comment:Test Performed by [employer] 03/27/2011 17:1 1 EST 03/27/2011 17:13 EST Sajan Stanford MD CHEMISTRY & BLOOD GAS ORDERA BLES Final Result Performing Organization Address [facility] Co de Phone Number [facility] [address] [place] [address] * (ABNORMAL) GLUCOSE, GLUCOMETER (03/27/2011 14:46 EST) Glucose, Fingerstick 224(H) 70 - 100 mg/dl [facility] [employer] Photogrammetry ID [id number] [facility] Comment:Test Performed by [employer] 03/27/2011 14:4 6 EST 03/27/2011 14:50 EST Sajan Stanford MD CHEMISTRY & BLOOD GAS ORDERA BLES Final Result Performing Organization Address [facility] de Phone Number [facility] [address] [place] [address] * (ABNORMAL) GLUCOSE, GLUCOMETER (03/27/2011 11:52 EST) Glucose, Fingerstick 227(H) 70 - 100 mg/dl [facility] [employer] Pilot Photogrammetry ID [id number] [facility] Comment:Test Performed by [employer] 03/27/2011 11:5 2 EST 03/27/2011 11:56 EST Sajan Stanford MD CHEMISTRY & BLOOD GAS ORDERA BLES Final Result Performing Organization Address [facility] de Phone Number [facility] [address] [place] [address] * (ABNORMAL) GLUCOSE, GLUCOMETER (03/27/2011 8:04 EST) Glucose, Fingerstick 162(H) 70 - 100 mg/dl [facility] [employer] Photogrammetry ID [id number] [facility] Comment:Test Performed by [employer] 03/27/2011 8:04 EST 03/27/2011 8:06 EST Sajan Stanford MD CHEMISTRY & BLOOD GAS ORDERA BLES Final Result Performing Organization Address [facility] de Phone Number [facility] [address] [place] [address] * (ABNORMAL) GLUCOSE, GLUCOMETER (03/27/2011 1:41 EST) Glucose, Fingerstick 194(H) 70 - 100 mg/dl [facility] [employer] Photogrammetry ID [id number] [facility] Comment:Test Performed by [employer] 03/27/2011 1:41 EST 03/27/2011 1:44 EST Sajan Stanford MD CHEMISTRY & BLOOD GAS ORDERA BLES Final Result Performing Organization Address [facility]/ZIP Co de Phone Number [facility] [address] [place] [address] * (ABNORMAL) GLUCOSE, GLUCOMETER (03/26/2011 21:01 EST) Glucose, Fingerstick 259(H) 70 - 100 mg/dl [facility] [employer] Photogrammetry ID [id number] [facility] Comment:Test Performed by [employer] 03/26/2011 21:0 1 EST 03/26/2011 21:03 EST Sajan Stanford MD CHEMISTRY & BLOOD GAS ORDERA BLES Final Result Performing Organization Address [facility] Co de Phone Number [facility] [address] [place] [address] * (ABNORMAL) GLUCOSE, GLUCOMETER (03/26/2011 17:17 EST) Glucose, Fingerstick 160(H) 70 - 100 mg/dl [facility] [employer] Photogrammetry ID [id number] [facility] Comment:Test Performed by rsing Services 03/26/2011 17:1 7 EST 03/26/2011 17:18 EST Sajan Stanford MD CHEMISTRY & BLOOD GAS ORDERA BLES Final Result Performing Organization Address City/[facility]/ZIP Co de Phone Number [facility] [address] [place] [address] * (ABNORMAL) GLUCOSE, GLUCOMETER (03/26/2011 12:17 EST) Glucose, Fingerstick 186(H) 70 - 100 mg/dl [facility] [employer] Pilot Photogrammetry ID [id number] [facility] Comment:Test Performed by [employer] 03/26/2011 12:1 7 EST 03/26/2011 12:19 EST Sajan Stanford MD CHEMISTRY & BLOOD GAS ORDERA BLES Final Result Performing Organization Address [facility] Co de Phone Number [facility] [address] [place] [address] * (ABNORMAL) GLUCOSE, GLUCOMETER (03/26/2011 8:10 EST) Glucose, Fingerstick 121(H) 70 - 100 mg/dl [facility] [employer] Photogrammetry ID [id number] [facility] Comment:Test Performed by rsing Services 03/26/2011 8:10 EST 03/26/2011 8:12 EST Sajan Stanford MD CHEMISTRY & BLOOD GAS ORDERA BLES Final Result Performing Organization Address [facility] de Phone Number [facility] [address] [place] [address] * ECG REPORT - SCANNED (03/26/2011 7:11 EST) 03/26/2011 7:11 EST Narrative Transcriptions [employer], Scan - 03/26/2011 7:11 EST us Scan [employer] PROCEDURE/MINOR SURGICAL ORDE RABLES Final Result * (ABNORMAL) GLUCOSE, GLUCOMETER (03/25/2011 20:52 EST) Glucose, Fingerstick 299(H) 70 - 100 mg/dl [facility] [employer] Photogrammetry ID [id number] [facility] Comment:Test Performed by [employer] 03/25/2011 20:5 2 EST 03/25/2011 20:[address] [facility] Sajan Stanford MD CHEMISTRY & BLOOD GAS ORDERA BLES Final Result Performing Organization Address [facility] Phone Number [facility] [address] [place] [address] * (ABNORMAL) GLUCOSE, GLUCOMETER (03/25/2011 16:53 EST) Glucose, Fingerstick 171(H) 70 - 100 mg/dl [facility] [employer] Pilot Photogrammetry ID [id number] [facility] Comment:Test Performed by [employer] 03/25/2011 16:5 3 EST 03/25/2011 16:57 EST Sajan Stanford MD CHEMISTRY & BLOOD GAS ORDERA BLES Final Result Performing Organization Address [facility] de Phone Number [facility] [address] [place] [address] * (ABNORMAL) GLUCOSE, GLUCOMETER (03/25/2011 11:57 EST) Glucose, Fingerstick 240(H) 70 - 100 mg/dl [facility] [employer] Photogrammetry ID [id number] [facility] Comment:Test Performed by [employer] 03/25/2011 11:5 7 EST 03/25/2011 11:[address] [facility] Sajan Stanford MD CHEMISTRY & BLOOD GAS ORDERA BLES Final Result Performing Organization Address [facility] Phone Number [facility] [address] [place] [address] * (ABNORMAL) GLUCOSE, GLUCOMETER (03/25/2011 9:24 EST) Glucose, Fingerstick 153(H) 70 - 100 mg/dl [facility] [employer] Photogrammetry ID [id number] [facility] Comment:Test Performed by [employer] 03/25/2011 9:24 EST 03/25/2011 9:26 EST Sajan Stanford MD CHEMISTRY & BLOOD GAS ORDERA BLES Final Result Performing Organization Address [facility] Co de Phone Number [facility] [address] [place] [address] * (ABNORMAL) GLUCOSE, GLUCOMETER (03/24/2011 20:58 EST) Glucose, Fingerstick 237(H) 70 - 100 mg/dl [facility] [employer] Pilot Photogrammetry ID [id number] [facility] Comment:Test Performed by [employer] 03/24/2011 20:5 8 EST 03/24/2011 21:02 EST Sajan Stanford MD CHEMISTRY & BLOOD GAS ORDERA BLES Final Result Performing Organization Address [facility] de Phone Number [facility] [address] [place] [address] * (ABNORMAL) GLUCOSE, GLUCOMETER (03/24/2011 16:52 EST) Glucose, Fingerstick 251(H) 70 - 100 mg/dl [facility] [employer] Photogrammetry ID [id number] [facility] Comment:Test Performed by [employer] 03/24/2011 16:5 2 EST 03/24/2011 16:55 EST Sajan Stanford MD CHEMISTRY & BLOOD GAS ORDERA BLES Final Result Performing Organization Address [facility] de Phone Number [facility] [address] [place] [address] * (ABNORMAL) GLUCOSE, GLUCOMETER (03/24/2011 11:57 EST) Glucose, Fingerstick 236(H) 70 - 100 mg/dl [facility] [employer] Photogrammetry ID [id number] [facility] Comment:Test Performed by [employer] 03/24/2011 11:5 7 EST 03/24/2011 11:59 EST Sajan Stanford MD CHEMISTRY & BLOOD GAS ORDERA BLES Final Result Performing Organization Address [facility] Co de Phone Number [facility] [address] [place] [address] * UA REFLEX (03/24/2011 9:22 EST) UA Billing Microscopic not indicated. [facility] 03/24/2011 9:22 EST 03/24/2011 11:13 EST Jenae Metz MD URINALYSIS ORDERABLES Final Result Performing Organization Address [facility] de Phone Number [facility] [address] [place] [address] * URINALYSIS (03/24/2011 9:22 EST) Color, UA Yellow [facility] Clarity, UA Clear [facility] Glucose, UA Neg Neg [facility] Bilirubin, UA Neg Neg [facility] Ketones, UA Neg Neg [facility] Specific [place], Urine 1.010 1.001 - 1.035 [facility] [...] URINALYSIS ORDERABLES Final Result Performing Organization Address [facility] Co de Phone Number [facility] [address] [place] [address] * (ABNORMAL) GLUCOSE, GLUCOMETER (03/24/2011 9:07 EST) Glucose, Fingerstick 138(H) 70 - 100 mg/dl [facility] [employer] Photogrammetry ID [id number] [facility] Comment:[facility] 03/24/2011 9:07 EST 03/24/2011 9:09 EST Sajan Stanford MD CHEMISTRY & BLOOD GAS ORDERA BLES Final Result Performing Organization Address [facility] Phone Number [facility] [address] [place] [address] * (ABNORMAL) GLUCOSE, GLUCOMETER (03/23/2011 22:46 EST) Glucose, Fingerstick 170(H) 70 - 100 mg/dl [facility] [employer] Pilot Photogrammetry ID [id number] [facility] Comment:Test Performed by [employer] X 03/23/2011 22:4 6 EST 03/23/2011 23:01 EST Sajan Stanford MD CHEMISTRY & BLOOD GAS ORDERA BLES Final Result Performing Organization Address [facility] Phone Number [facility] [address] [place] [address] * (ABNORMAL) GLUCOSE, GLUCOMETER (03/23/2011 16:57 EST) Glucose, Fingerstick 260(H) 70 - 100 mg/dl [facility] [employer] Photogrammetry ID [id number] [facility] Comment:Test Performed by [employer] X 03/23/2011 16:5 7 EST 03/23/2011 16:[address] [facility] Sajan Stanford MD CHEMISTRY & BLOOD GAS ORDERA BLES Final Result Performing Organization Address [facility] Phone Number [facility] [address] [place] [address] * (ABNORMAL) GLUCOSE, GLUCOMETER (03/23/2011 12:01 EST) Glucose, Fingerstick 228(H) 70 - 100 mg/dl [facility] [employer] Pilot Photogrammetry ID [id number] [facility] Comment:Test Performed by [employer] X 03/23/2011 12:0 1 EST 03/23/2011 12:06 EST Sajan Stanford MD CHEMISTRY & BLOOD GAS ORDERA BLES Final Result Performing Organization Address [facility] de Phone Number [facility] [address] [place] [address] * (ABNORMAL) GLUCOSE, GLUCOMETER (03/23/2011 8:43 EST) Glucose, Fingerstick 170(H) 70 - 100 mg/dl [facility] [employer] Pilot Photogrammetry ID [id number] [facility] Comment:Test Performed by [employer] 03/23/2011 8:43 EST 03/23/2011 8:58 EST Sajan Stanford MD CHEMISTRY & BLOOD GAS ORDERA BLES Final Result Performing Organization Address [facility] de Phone Number [facility] [address] [place] [address] * (ABNORMAL) GLUCOSE, GLUCOMETER (03/22/2011 21:08 EST) Glucose, Fingerstick 294(H) 70 - 100 mg/dl [facility] [employer] Photogrammetry ID [id number] [facility] Comment:Test Performed by rsing Services 03/22/2011 21:0 8 EST 03/22/2011 21:[address] [facility] Sajan Stanford MD CHEMISTRY & BLOOD GAS ORDERA BLES Final Result Performing Organization Address [facility] de Phone Number [facility] [address] [place] [address] * FOLATE (03/22/2011 19:08 EST) Folate 21.6 ng/mL [facility] Comment: Deficient: ??Less than 3.4 ng/mL Indeterminate: ??3.4-5.4 ng/mL Normal: ??Greater than 5.4 ng/mL Blood specimen (specimen) 03/22/2011 19:08 EST 03/22/2011 19:26 EST Jenae Metz MD CHEMISTRY & BLOOD GAS ORDERABLES Final Result Performing Organization Address [facility] Co de Phone Number [facility] [address] [place] [address] * VITAMIN B12 (03/22/2011 19:08 EST) [facility] Vitamin B-12 381 211 - 911 pg/ml [facility] Blood specimen (specimen) 03/22/2011 19:08 EST 03/22/2011 19:26 EST Jenae Metz MD CHEMISTRY & BLOOD GAS ORDERABLES Final Result Performing Organization Address [facility] de Phone Number [facility] [address] [place] [address] * T4 FREE (03/22/2011 19:08 EST) [facility] Free T4 1.5 0.8 - 1.8 ng/dL [facility] Blood specimen (specimen) 03/22/2011 19:08 EST 03/22/2011 19:26 EST Jenae Metz MD CHEMISTRY & BLOOD GAS ORDERABLES Final Result Performing Organization Address [facility] de Phone Number [facility] [address] [place] [address] * HEMAGRAM AND DIFFERENTIAL (03/22/2011 19:08 EST) [facility] WBC 6.60 4.0 - 10.4 K/cmm [facility] [...] O RDERABLES Final Result Performing Organization Address City/[facility] Co de Phone Number [facility] [address] [place] [address] * TSH (03/22/2011 19:08 EST) TSH 0.71 0.35 - 5.00 uIU/ml [facility] Blood specimen (specimen) 03/22/2011 19:08 EST 03/22/2011 19:26 EST us Jenae Metz MD CHEMISTRY & BLOOD GAS ORDERABLES Final Result Performing Organization Address City/[facility] Co de Phone Number [facility] [address] [place] [address] * ALT (03/22/2011 19:08 EST) ALT 61 21 - 72 U/L [facility] Blood specimen (specimen) 03/22/2011 19:08 EST 03/22/2011 19:26 EST us Jenae Metz MD CHEMISTRY & BLOOD GAS ORDERABLES Final Result Performing Organization Address [facility] Co de Phone Number [facility] [address] [place] [address] * (ABNORMAL) AST (03/22/2011 19:08 EST) AST 53(H) 15 - 46 U/L [facility] Blood specimen (specimen) 03/22/2011 19:08 EST 03/22/2011 19:26 EST us Jenae Metz MD CHEMISTRY & BLOOD GAS ORDERABLES Final Result Performing Organization Address [facility] de Phone Number [facility] [address] [place] [address] * ALBUMIN (03/22/2011 19:08 EST) Albumin 4.3 3.4 - 4.9 g/dl [facility] Blood specimen (specimen) 03/22/2011 19:08 EST 03/22/2011 19:26 EST Jenae Metz MD CHEMISTRY & BLOOD GAS ORDERABLES Final Result Performing Organization Address [facility] de Phone Number [facility] [address] [place] [address] * (ABNORMAL) GGT (03/22/2011 19:08 EST) GGT 82(H) 15 - 73 U/L [facility] Blood specimen (specimen) 03/22/2011 19:08 EST 03/22/2011 19:26 EST us Jenae Metz MD CHEMISTRY & BLOOD GAS ORDERABLES Final Result Performing Organization Address [facility] de Phone Number [facility] [address] [place] [address] * ALKALINE PHOSPHATASE (03/22/2011 19:08 EST) Total Alkaline Phosphatase 71 38 - 126 U/L [facility] Blood specimen (specimen) 03/22/2011 19:08 EST 03/22/2011 19:26 EST Jenae Metz MD CHEMISTRY & BLOOD GAS ORDERABLES Final Result Performing Organization Address [facility] de Phone Number [facility] [address] [place] [address] * CREATININE (03/22/2011 19:08 EST) Creatinine 0.80 0.7 - 1.5 mg/dl [facility] GFR, Calculated >60 >60 ml/min/1.7 3m2 [facility] Blood specimen (specimen) 03/22/2011 19:08 EST 03/22/2011 19:26 EST Jenae Metz MD CHEMISTRY & BLOOD GAS ORDERABLES Final Result Performing Organization Address [facility] Phone Number [facility] [address] [place] [address] * BUN (03/22/2011 19:08 EST) BUN 14 10 - 26 mg/dl [facility] Blood specimen (specimen) 03/22/2011 19:08 EST 03/22/2011 19:26 EST Jenae Metz MD CHEMISTRY & BLOOD GAS ORDERABLES Final Result Performing Organization Address [facility] de Phone Number [facility] [address] [place] [address] * (ABNORMAL) ELECTROLYTES (03/22/2011 19:08 EST) Sodium [...] GAS ORDERABLES Final Result Performing Organization Address [facility] de Phone Number [facility] [address] [place] [address] * (ABNORMAL) SCREENING GLUCOSE (03/22/2011 19:08 EST) Glucose, Screening 273(H) 70 - 100 mg/dl [facility] Blood specimen (specimen) 03/22/2011 19:08 EST 03/22/2011 19:[address] [facility] Jenae Metz MD CHEMISTRY & BLOOD GAS ORDERABLES Final Result Performing Organization Address [facility] de Phone Number [facility] [address] [place] [address] * (ABNORMAL) GLUCOSE, GLUCOMETER (03/22/2011 18:07 EST) Glucose, Fingerstick 215(H) 70 - 100 mg/dl [facility] Airplane Pilot Photogrammetry ID [id number] [facility] Comment:Test Performed by [facility] 03/22/2011 18:0 7 EST 03/22/2011 18:[address] [facility] Sajan Stanford MD CHEMISTRY & BLOOD GAS ORDERA BLES Final Result Performing Organization Address [facility] Phone Number [facility] [address] [place] [address] documented in this encounter Visit Diagnoses Diagnosis Diabetes mellitus ([facility]) Type II or unspecified type diabetes mellitus without mention of complication, not stated as uncontrolled Major depression Major depressive disorder, single episode, unspecified CAD (coronary artery disease) Coronary atherosclerosis of unspecified type of vessel, [place] or graft documented in this encounter Administered [...] Alice Fatima RN)1727 (Given - Provider: Christina Torers) 0839 (Given - Provider: Tamika Cordero) famotidine [...] Comment: pt prefers later)2358 (Given - Provider: David Bustillo) 223 (Given [...] injection 0.5-2 mg 1 11/2010 influenza vaccine [id number] (PF) (FLUZONE) 45 mcg (15 mcg x [...] 05/05/2011 documented in this encounter Care Teams Engraver Tire Mold Relationship Specialty Start Date End Date None, Provider PCP - General 03/22/11 03/23/11 Iggy Sevilla MD [address] [place] [address] PCP - General 03/24/11 12/19/18 documented as of this encounter
--- OUTSIDE RECORDS SUMMARY | 2024-05-09 16:15 | XMS_ITS | Encounter Summary ---
[place] [address] Care Team Providers Care Hat Cone Inspector Name Role Phone Dewayne Carrington MD Primary Care Provider [phone] Reason for Referral * Consultation (Routine) - Closed Specialty Diagnoses / Procedures Referred By Contac t Referred To Contact Neurology Diagnoses Dizziness and giddiness Dewayne Carrington MD [address] [place] [address] [place] [address] [facility] [address] [place] [phone] Referral ID Status Reason Start Date Expiration Date V isits Requested Visits Authorized [id number] Closed Second Opinion 04/07/2023 04/06/2024 1 1 Encounter Details Date Type Department Care Team (Late st Contact Info) Description 04/07/2023 Transcribe Orders eD Incoming Referrals [phone] Dewayne Carrington MD [address] [place] [address] [address] [place], [place] [id number] Dizziness and giddiness Social History Tobacco Use [...] AM EST Hospital Encounter Non-Invasive [place] [address] Arrived Scheduled Referrals Name Type Priority Associated Diagnoses Orde r Schedule Referral to Neurology Outpatient Referral Routine Dizziness and giddiness Ordered: 04/07/2023 documented as of this encounter Visit Diagnoses Diagnosis Dizziness and giddiness documented in this encounter Care Teams Hat Cone Inspector Relationship Specialty Start Date End Date Dewayne Carrington MD PCP - General 09/02/16 documented as of this encounter
--- OUTSIDE RECORDS SUMMARY | 2024-05-09 16:15 | XMS_ITS | Encounter Summary ---
[place] [address] Care Team Providers Care Director Camp Name Role Phone Dewayne Carrington MD Primary Care Provider [phone] Encounter Details Date Type Department Care Team (Latest Contact Info) Description 12/23/2022 10:00 AM EDT - 12/23/2022 11:59 PM EDT Hospital Encounter Non-[place] [address] Discharge Disposition: Home Social History Tobacco Use [...] EST Hospital Encounter Non-Invasive [place] [address] Arrived documented as of this encounter Procedures [...] on filedocumented in this encounter Care Teams Director Camp Relationship Specialty Start Date End Date Dewayne Carrington MD PCP - General 09/02/16 documented as of this encounter
--- OUTSIDE RECORDS SUMMARY | 2024-05-09 16:15 | XMS_ITS | Encounter Summary ---
[place] [address] Care Team Providers Care Second Miller Name Role Phone Dewayne Carrington MD Primary Care Provider [phone] Encounter Details Date Type Department Care Team (Latest Contact Info) Description 09/19/2023 10:00 AM EDT - 09/19/2023 11:59 PM EDT Hospital Encounter Non-[place] [address] Discharge Disposition: Home Social History Tobacco Use [...] AM EST Hospital Encounter Non-[place] [address] Arrived documented as of this encounter Procedures [...] on filedocumented in this encounter Care Teams Second Miller Relationship Specialty Start Date End Date Dewayne Carrington MD PCP - General 09/02/16 documented as of this encounter
--- OUTSIDE RECORDS SUMMARY | 2024-05-09 16:15 | XMS_ITS | Encounter Summary ---
Author Organization [facility] Address [address] [place] [address] Care Team Providers Care Choir Teacher Name Role Phone Iggy Sevilla MD Primary Care Provider [phone] Reason for Visit * Reason Onset Date Comments Procedure 04/04/2011 Encounter Details Date Type Department Care Team ([facility] st Contact Info) Description 04/04/2011 Pre-Procedure Orders Encounter [facility] Psychiatric Consultation Program - [address] [address] Juwan Sawant MD [address] [place] [address] [address] [place] [phone] Social History Tobacco Use Types Packs/Day Years [...] on filedocumented in this encounter Care Teams Choir Teacher Relationship Specialty Start Date End Date Iggy Sevilla MD [address] [place] [phone] PCP - General 03/24/11 12/19/18 documented as of this encounter
--- OUTSIDE RECORDS SUMMARY | 2024-05-09 16:15 | XMS_ITS | Encounter Summary ---
Author Organization [facility] Address [address] [place] [address] Care Team Providers Care Seam Feller Name Role Phone Iggy Sevilla MD Primary Care Provider [phone] Reason for Visit * Reason Onset Date Comments Procedure 04/25/2011 Encounter Details Date Type Department Care Team (Late st Contact Info) Description 04/25/2011 Pre-Procedure Orders Encounter [facility] Psychiatric Consultation Program - [address] [address] Juwan Sawant MD [address] [place] [address] [address] [place] [phone] Social History Tobacco Use Types Packs/Day Years [...] on filedocumented in this encounter Care Teams Seam Feller Relationship Specialty Start Date End Date Iggy Sevilla MD [address] [place] [phone] PCP - General 03/24/11 12/19/18 documented as of this encounter
--- OUTSIDE RECORDS SUMMARY | 2024-05-09 16:15 | XMS_ITS | Encounter Summary ---
[place] [address] Care Team Providers Care Account Service Representative Name Role Phone Dewayne Carrington MD Primary Care Provider [phone] Reason for Referral * Consultation (Routine) - Closed Specialty Diagnoses / Procedures Referred By Contac t Referred To Contact Gastroenterology Diagnoses Steatohepatitis Dewayne Carrington MD [address] [place] [address] [place] [address] [facility] [address] [place] [address] Referral ID Status Reason Start Date Expiration Date V isits Requested Visits Authorized [id number] Closed Consult, Test & Treat PCP Updated and/or Approved 02/22/2022 02/22/2023 6 6 Encounter Details Date Type Department Care Team (Late st Contact Info) Description 02/22/2022 Transcribe Orders eDH Incoming Referrals [phone] Dewayne Carrington MD [address] [place] [address] [place] [address] Steatohepatitis Social History Tobacco Use [...] Contact Info) Description 06/15/2024 10:00 AM [facility] Hospital Encounter Non-Invasive [place] [address] Arrived Scheduled Referrals Name Type Priority Associated Diagnoses Order Schedule Referral to Gastroenterology Outpatient Referral Routine Steatohepatitis Ordered: 02/22/2022 documented as of this encounter Visit Diagnoses Diagnosis Steatohepatitis Other chronic nonalcoholic liver disease documented in this encounter Care Teams Account Service Representative Relationship Specialty Start Date End Date Dewayne Carrington MD PCP - General 09/02/16 documented as of this encounter
--- OUTSIDE RECORDS SUMMARY | 2024-05-09 16:15 | XMS_ITS | Encounter Summary ---
Author [place] [address] Care Team Providers Care Funeral Director/Embalmer Name Role Phone Dewayne Carrington MD Primary Care Provider [phone] Encounter Details Date Type Department Care Team (Latest Contact Info) Description 06/21/2023 10:00 AM EST - 06/21/2023 11:59 PM EST Hospital Encounter Non[place] [address] Discharge Disposition: Home Social History Tobacco Use [...] EST Hospital Encounter Non-Invasive [place] [address] Arrived documented as of this encounter Procedures [...] on filedocumented in this encounter Care Teams Funeral Director/Embalmer Relationship Specialty Start Date End Date Dewayne Carrington MD PCP - General 09/02/16 documented as of this encounter
--- OUTSIDE RECORDS SUMMARY | 2024-05-09 16:16 | XMS_ITS | Encounter Summary ---
Author Organization [facility] Address [facility] [place] [address] Care Team Providers Care Sugar Refiner Name Role Phone Dewayne Carrington MD Primary Care Provider [phone] Encounter Details Date Type Department Care Team (Latest Contact Info) Description 09/26/2021 - 09/26/2021 11:59 PM EDT Hospital Encounter [place] [address] Irena Daly MD [facility] [place] [address] V-tach Discharge Disposition: Home Social History Tobacco [...] AM EST Hospital Encounter [place] [address] Arrived documented as of this encounter Procedures [...] pdf document Date of transmission: 09/26/21 Device motor vehicle lecturer: [facility] [place] [place] Device type: DC ICD Presenting rhythm: asvs AP 9% MONUMENTAL [place]ON[place] 0% Battery: 3.5 years Episodes: None Stable lead trends. Activity 0.5 hr/day Irena Daly MD 10/02/2021 3:16 PM Irena Daly MD IMPLANTABLE CARDIAC DEVICE documented in this encounter Visit Diagnoses Diagnosis V-tach Paroxysmal ventricular tachycardia documented in this encounter Care Teams Sugar Refiner Relationship Specialty Start Date End Date Dewayne Carrington MD PCP - General 09/02/16 documented as of this encounter
--- OUTSIDE RECORDS SUMMARY | 2024-05-09 16:16 | XMS_ITS | Encounter Summary ---
[place] [address] Care Team Providers Care Logistics Service Representative Name Role Phone Dewayne Carrington MD Primary Care Provider [phone] Encounter Details Date Type Department Care Team (Late st Contact Info) Description 12/26/2021 Orders Only Cardiology at [address] [address] Social History Tobacco Use Types Packs/Day Years [...] AM EST Hospital Encounter [place] [address] Arrived documented as of this encounter Procedures [...] Therapy Details Presenting EGM [id number] Episode Date Time IDCO Episode Type Category Other IDCO Episode Vendor Type Category XANDER IDCO Episode Detection Interval Ventricular 1,034 ms IDCO Episode Duration 46 s IDCO Episode Detection And Therapy Details [id number] Episode Date Time IDCO Episode Type Category Other IDCO Episode Vendor Type Category XANDER IDCO Episode Detection Interval Ventricular 1,034 ms IDCO Episode Duration 50 s IDCO Episode Detection And Therapy Details [id number] ID[facility] Episode Date Time IDCO Episode Type Category Other IDCO Episode Vendor Type Category XANDER IDCO Episode Detection Interval Ventricular 822 ms IDCO Episode Duration 50 s IDCO Episode Detection And Therapy Details [id number] Episode Date Time IDCO Episode Type Category Other IDCO Episode Vendor Type Category XANDER IDCO Episode Detection Interval Ventricular 938 ms IDCO Episode Duration 56 s IDCO Episode Detection And Therapy Details [id number] ID[facility] Episode Date Time IDCO Episode Type Category Other IDCO Episode Vendor Type Category XANDER IDCO Episode Detection Interval Ventricular 750 ms IDCO Episode Duration 43 s IDCO Episode Detection And Therapy Details [id number] Episode Date Time IDCO Episode Type Category Other IDCO Episode Vendor Type Category XANDER IDCO Episode Detection Interval Ventricular 822 ms IDCO Episode Duration 46 s IDCO Episode Detection And Therapy Details [facility] IDCO Episode Identifier [id number] ID[facility] Episode Date Time IDCO Episode Type Category Other IDCO Episode Vendor Type Category XANDER IDCO Episode Detection Interval Ventricular 923 ms IDCO Episode Duration 52 s IDCO Episode Detection And Therapy Details [id number] Episode Date Time IDCO Episode Type Category Other IDCO Episode Vendor Type Category XANDER IDCO Episode Detection Interval Ventricular 923 ms IDCO Episode Duration 53 s IDCO Episode Detection And Therapy Details [facility] IDCO Episode Identifier [id number] Episode Date Time IDCO Episode Type Category Other IDCO Episode Vendor Type Category XANDER IDCO Episode Detection Interval Ventricular 923 ms IDCO Episode Duration 55 s IDCO Episode Detection And Therapy Details [facility] IDCO Episode Identifier [id number] Episode Date Time IDCO Episode Type Category Other IDCO Episode Vendor Type Category XANDER IDCO Episode Detection Interval Ventricular 923 ms IDCO Episode Duration 54 s IDCO Episode Detection And Therapy Details [facility] IDCO Episode Identifier [id number] IDCO Episode Date Time IDCO Episode Type [...] E162 IDCO Implantable Pulse Generator Serial Number [id number] IDCO Implantable Pulse Generator Department Traffic Freight Router [employer] IDCO Implantable Pulse Generator Implant Date 20140110 IDCO Implantable Lead Model 4136 IDCO Implantable Lead Serial Number [id number] IDCO Implantable Lead Department Traffic Freight Router Guidant IDCO Implantable Lead Implant Date 20130421 IDCO Implantable Lead Polarity Type Bipolar Lead IDCO Implantable Lead Location Right Atrium IDCO Implantable Lead Model 0292 IDCO Implantable Lead Serial Number [id number] IDCO Implantable Lead Department Traffic Freight Router [place] [employer] IDCO Implantable Lead Implant Date IDCO [...] IDCO Lead Channel Pacing Threshold Measurement Method Career Development Coordinator Manual IDCO Lead Channel Pacing Threshold [...] IDCO Lead Channel Pacing Threshold Measurement Method Career Development Coordinator Manual IDCO Lead Channel Pacing Threshold [...] on filedocumented in this encounter Care Teams Logistics Service Representative Relationship Specialty Start Date End Date Dewayne Carrington MD PCP - General 09/02/16 documented as of this encounter
--- OUTSIDE RECORDS SUMMARY | 2024-05-09 16:16 | XMS_ITS | Encounter Summary ---
Author Organization [facility] [place] [address] Care Team Providers Care Cloth Mercerizer Operator Name Role Phone Dewayne Carrington MD Primary Care Provider [phone] Encounter Details Date Type Department Care Team (Late st Contact Info) Description 12/25/2020 Telephone Cardiology at [address] [address] Yumiko Lopes Social History Tobacco [...] Email sent to Yudi Doyle RN at [facility] asking for 01/09/21 appt to be made with Dr. Molina. Yumiko Lpoes EP Scheduling documented in this encounter Plan of Treatment Upcoming Encounters Date Type Department Care Team (Late st Contact Info) Description 06/15/2024 10:00 AM EST Hospital Encounter [place] [address] Arrived documented as of this encounter Visit Diagnoses Not on filedocumented in this encounter Care Teams Cloth Mercerizer Operator Relationship Specialty Start Date End Date Dewayne Carrington MD PCP - General 09/02/16 documented as of this encounter
--- OUTSIDE RECORDS SUMMARY | 2024-05-09 16:16 | XMS_ITS | Encounter Summary ---
[place] [address] Care Team Providers Care Floor Covering Contractor Name Role Phone Dewayne Carrington MD Primary Care Provider Encounter Details Date Type Department Care Team (Late st Contact Info) Description 10/22/2021 Orders Only Cardiology at [address] [address] Social History Tobacco Use Types Packs/Day Years [...] AM EST Hospital Encounter [place] [address] Arrived documented as of this encounter Procedures Procedure Name Priority Date/Time Associated Diagnosis Comments CARDIAC DEVICE CHECK - REMOTE DEVICE INITIATED Routine 10/22/2021 12:42 AM EDT documented in this encounter Results * Cardiac device check - Remote Device Initiated (10/22/2021 12:42 AM EDT) Date Time Interrogation Session IDCO Type Interrogation Session Remote Device Initiated IDCO Clinic Name [facility] IDCO Battery Date Time of Measurements [...] Therapy Details Presenting EGM IDCO Episode Identifier [id number] IDCO Episode Date Time IDCO Episode Type Category Other IDCO Episode Vendor Type Category XANDER IDCO Episode Detection Interval Ventricular 870 ms IDCO Episode Duration 50 s IDCO Episode Detection And Therapy Details IDCO Episode Identifier [id number] IDCO Episode Date Time IDCO Episode Type [...] Detection And Therapy Details IDCO Episode Identifier [id number] IDCO Episode Date Time IDCO Episode Type Category Other IDCO Episode Vendor Type Category XANDER IDCO Episode Detection Interval Ventricular 968 ms IDCO Episode Duration 59 s IDCO Episode Detection And Therapy Details IDCO Episode Identifier [id number] IDCO Episode Date Time IDCO Episode Type Category Other IDCO Episode Vendor Type Category XANDER IDCO Episode Detection Interval Ventricular 984 ms IDCO Episode Duration 57 s IDCO Episode Detection And Therapy Details IDCO Episode Identifier [id number] IDCO Episode Date Time IDCO Episode Type Category Other IDCO Episode Vendor Type Category XANDER IDCO Episode Detection Interval Ventricular 952 ms IDCO Episode Duration 57 s IDCO Episode Detection And Therapy Details Q IDCO Episode Identifier [id number] IDCO Episode Date Time IDCO Episode Type Category Other IDCO Episode Vendor Type Category XANDER IDCO Episode Detection Interval Ventricular 1,053 ms IDCO Episode Duration 59 s IDCO Episode Detection And Therapy Details Q IDCO Episode Identifier [id number] IDCO Episode Date Time IDCO Episode Type Category Other IDCO Episode Vendor Type Category XANDER IDCO Episode Detection Interval Ventricular 1,000 ms IDCO Episode Duration 58 s IDCO Episode Detection And Therapy Details IDCO Episode Identifier [id number] IDCO Episode Date Time IDCO Episode Type Category Other IDCO Episode Vendor Type Category XANDER IDCO Episode Detection Interval Ventricular 984 ms IDCO Episode Duration 176 s IDCO Episode Detection And Therapy Details IDCO Episode Identifier [id number] IDCO Episode Date Time IDCO Episode Type [...] E162 IDCO Implantable Pulse Generator Serial Number [id number] IDCO Implantable Pulse Generator Storage Garage Manager [place] [employer] IDCO Implantable Pulse Generator Implant Date 20140110 IDCO Implantable Lead Model 4136 IDCO Implantable Lead Serial Number [id number] IDCO Implantable Lead Storage Garage Manager Guidant IDCO Implantable Lead Implant Date 20130421 IDCO Implantable Lead Polarity Type Bipolar Lead IDCO Implantable Lead Location Right Atrium IDCO Implantable Lead Model 0292 IDCO Implantable Lead Serial Number [id number] IDCO Implantable Lead Storage Garage Manager [place] [employer] IDCO Implantable Lead Implant Date IDCO [...] IDCO Lead Channel Pacing Threshold Measurement Method Residential Pest Control Technician Manual IDCO Lead Channel Pacing Threshold [...] IDCO Lead Channel Pacing Threshold Measurement Method Residential Pest Control Technician Manual IDCO Lead Channel Pacing Threshold [...] on filedocumented in this encounter Care Teams Floor Covering Contractor Relationship Specialty Start Date End Date Dewayne Carrington MD PCP - General 09/02/16 documented as of this encounter
--- OUTSIDE RECORDS SUMMARY | 2024-05-09 16:16 | XMS_ITS | Encounter Summary ---
Author Organization [facility] Address [facility] [place] [address] Care Team Providers Care Substation Supervisor Name Role Phone Dewayne Carrington MD Primary Care Provider [phone] Encounter Details Date Type Department Care Team (Late st Contact Info) Description 10/22/2021 Notes Only Cardiology at [address] [phone] Edy Burns PA [facility] [place] [address] Social History Tobacco Use Types Packs/Day Years [...] Electronic Device Remote Monitoring Interpretation Marquez Hendrix [id number] Transmission Date: 10/22/2021 Device Type: ICD Generator: [employer] E162 INCEPTA ICD / 194720 Battery Status: 3.5 years Charge Time: 11.7 sec Atrial Pacin% Ventricular Pacin% Alerts: Oct 21, 2021 19:16 Shock lead impedance out of range. Events/Arrhythmias noted since last reset: None Impression: Shock lead impedance is 128 ohms. Consulted with [employer] rep Js Szymanski who advised programming thealert threshold to 150 ohms. This will also reset the red alert in the device by interrogating withthe net programmer. Will contact schedulers to bring him into the clinic. Normally functioning device Edy Burns PA-C, PhD 10/22/2021 Pager [phone] documented in this encounter Plan of Treatment Upcoming Encounters Date Type Department Care Team (Late st Contact Info) Description 06/15/2024 10:00 AM [facility] Hospital Encounter Non-[place] [address] Arrived documented as of this encounter Visit Diagnoses Not on filedocumented in this encounter Care Teams Substation Supervisor Relationship Specialty Start Date End Date Dewayne Carrington MD PCP - General 09/02/16 documented as of this encounter
--- OUTSIDE RECORDS SUMMARY | 2024-05-09 16:16 | XMS_ITS | Encounter Summary ---
Author Organization [facility] [place] [address] Care Team Providers Care Supervisor Agricultural Education Name Role Phone Dewayne Carrington MD Primary Care Provider [phone] Reason for Visit * Reason Comments Medication Refill Encounter Details Date Type Department Care Team (Late st Contact Info) Description 12/09/2021 Refill Cardiology at [address] [phone] Fantasma Matos MD [facility] [place] [address] Medication Refill Social History Tobacco Use Types [...] AM EST Hospital Encounter Non-[place] [phone] Arrived documented as of this encounter Visit Diagnoses Not on filedocumented in this encounter Care Teams Supervisor Agricultural Education Relationship Specialty Start Date End Date Dewayne Carrington MD PCP - General 09/02/16 documented as of this encounter
--- OUTSIDE RECORDS SUMMARY | 2024-05-09 16:16 | XMS_ITS | Encounter Summary ---
Author Organization [facility] Address [facility] [place] [address] Care Team Providers Care Registered Private Duty Nurse Name Role Phone Dewayne Carrington MD Primary Care Provider [phone] Reason for Visit * Consultation (Routine) - Specialty Diagnoses / Procedures Referred By Contac t Referred To Contact Gastroenterology Diagnoses Fatty (change of) liver, not elsewhere classified fatty liver- Dewayne Carrington MD [address] [place] [address] [facility] [address] [address] Referral ID Status Reason Start Date Expiration Date V isits Requested Visits Authorized [id number] Consult, [facility] PCP Updated and/or Approved 09/03/2020 03/02/2021 6 6 Encounter Details Date Type Department Care Team (Late st Contact Info) Description 03/19/2021 2:30 PM EST Office [place] [address] Elsie Cristobal MD [facility] [place] [address] Abnormal liver function test; Fatty [...] not included. 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 [place] V: [phone] Copy: Dewayne Carrington MD [facility] [phone] documented in this encounter Procedure Notes * Elsie Cristobal MD - 03/19/2021 2:30 PM ESTAssociated Order(s): FIBROSCAN Procedure(s): FIBROSCAN Pre-Procedure Diagnose(s): Abnormal liver function test; Fatty liver [facility] Liver Fibrosis Assessment Report Indication: Fatty liver Performed by: Elsie Cristobal MD Procedure: Vibration Controlled Transient Elastography (VCTE) or Fibroscan [place] Protocol: Patient's identity, procedure and site were [...] AM EST Hospital Encounter Non-[place] [phone] Arrived documented as of this encounter Procedures [...] 3:50 PM EST Abnormal liver function test [id number] Routine 03/19/2021 3 :50 PM EST Abnormal liver function test [facility] SMOOTH MUSCLE AB, SERUM Routine 03/19/2021 3:50 PM EST Abnormal liver function test HC CBC,PLT & AUTO DIFF Routine 3:50 PM EST Abnormal liver function test [facility] ANATITRE (ANDPATTERN) Routine 03/19/2021 3:50 PM EST Abnormal liver function test COMPREHENSIVE METABOLIC PANEL Routine 03/19/2021 3:50 PM EST Abnormal liver function test [id number] Routine 03/19/2021 2:30 PM EST Abnormal liver function test Fatty liver documented in this encounter Results * (ABNORMAL) Differential, Automated (03/19/2021 3:50 PM EST) Pathologist [facility] Neutrophil % 61.4 % [facility] Neutrophil Absolute 4.80 1.70 - 6.10 x10(3)/mc L [facility] Lymph % 25.7 % [facility] Lymphocytes Abs 2.0 0.9 - 3.2 x10(3)/mc L [facility] Monocyte % 6.3 % [facility] Monocyte Abs 0.5 0.3 - 0.9 x10(3)/mc L [facility] Eos % 5.4 % [facility] Eosinophils Abs 0.4 0.0 - 0.4 x10(3)/[facility] Basophil % 0.6 % [facility] Baso Absolute 0.0 0.0 - 0.1 x10(3)/mc L [facility] Immature Gran % 0.60 % [facility] Comment: Immature granulocytes(IG's)percentage and absolute count will include metamyelocytes, myelocytes, and promyelocytes. Blood smears from CBCs yielding IG's will be scanned manually for concordance. If this scan disagrees with the automated IG or if promyelocytes are noted, a manual differential will be performed. Immature Gran Absolute 0.05(H) 0.00 - 0.04 x10(3)/mc L [facility] Blood 03/19/2021 3:50 PM EST 03/19/2021 4:21 PM EST Narrative Resulting Agency Comment Spec In Lab Elsie Cristobal MD HEMATOLOGY ORDERABLE S [facility] [place] [address] * (ABNORMAL) Hemogram (03/19/2021 3:50 PM EST) [facility] White Blood Cell 7.8 4.0 - 9.5 x10(3)/ L [facility] Red Blood Cell 4.89 4.58 - 5.54 x10(6)/ L [facility] Hemoglobin 15.1 13.7 - 16.5 g/dL [facility] Hematocrit 44.6 40.5 - 48.5 % [facility] Mean Cell Volume 91.2 82.9 - 93.1 fL [facility] Mean Cell Hemoglobin 30.9 27.5 - 32.1 pg [facility] Mean Cell Hemoglobin Concentration 33.9 32.0 - 35.7 g/dL [facility] Platelet 228 145 - 357 x10(3)/[facility] RDW Standard Deviation 49.3(H) 36.0 - 45.0 fL [facility] RDW coefficient of variation 14.7(H) 11.4 - 13.8 % [facility] Mean Platelet Volume 9.0 7.6 - 12.9 fL [facility] NRBC% auto 0.0 % [facility] NRBC Absolute 0.000 0.000 - 0.000 x10(3)/[facility] Blood 03/19/2021 3:50 PM EST 03/19/2021 4:21 PM EST Narrative Resulting Agency Comment Spec In Lab Elsie Cristobal MD HEMATOLOGY ORDERABLE S [facility] [place] [address] * A1AT Genotype (03/19/2021 3:50 PM EST) [facility] A1AT Genotype A1AT (SERPINA1) GENOTYPING RESULTS: [...] in the ? S? phenotype ([id number]:c.863 A>T; [id number]) and the ? Z? phenotype (c. 1096G>A; [id number]) are amplified and genotyped by two separate [...] and [employer] (CG[employer]) Laboratory at [facility]. It has not been cleared or approved by the FDA. The laboratory is regulated under CLIA as qualified to perform high-complexity testing. This test is used for clinical purposes. It should not be regarded as investigational or for research. [facility] Comment: [VERIFIED DATE]03.27.21 Verified By:Nabila Ph.D., [facility], [facility] Clinical Ciaio Counter Molder/Bridal Stylist Sales Consultant (Electronic Signature) Blood 03/19/2021 3:50 PM EST 03/20/2021 7:43 AM EST Narrative Resulting Agency Comment Spec In Lab Elsie Cristobal MD CHEMISTRY ORDERABLES [facility] [place] [address] * A1AT Serum Concentration (03/19/2021 3:50 PM EST) [facility] Signature A1AT 148 90 - 200 mg/dL [facility] Blood 03/19/2021 3:50 PM EST 03/19/2021 4:21 PM EST Narrative Resulting Agency Comment Spec In Lab Elsie Cristobal MD CHEMISTRY ORDERABLES Performing Organization Address [facility] de Phone Number [facility] [place] [address] * Smooth Muscle Antibody (03/19/2021 3:50 PM EST) Sm Muscle Ab (MAY) Negative Negative [facility] Comment: Negative: No further testing will be performed ADDITIONAL INFORMATION This test was developed and its performance characteristics determined by [facility] in a manner consistent with CLIA requirements. This test has not been cleared or approved by the U.S. Food and Drug Administration. Test Performed by: [facility] - [facility] [address] [place] [address] Fitness/Wellness Director: Iggy Garcia M.D. Ph.D.; CLIA# [id number] Blood 03/19/2021 3:50 PM EST 03/20/2021 9:19 AM EST Narrative Resulting Agency Comment Spec In Lab Elsie Cristobal MD LAB SEND OUT ORDERAB LES Performing Organization Address [facility] de Phone Number [facility] [place] [address] * (ABNORMAL) SONAL (03/19/2021 3:50 PM EST) SONAL Ab Screen Test ?Result ? Flag ??Unit ??RefValue Antinuclear Ab, HEp-2 Substrate, ?Positive 1:320 ??@ ?<1:80 (Negative) ??S ? ADDITIONAL INFORMATION --------- ?Method: Immunofluorescence using HEp-2 cellular substrate. ??SONAL Titer: ?1:320 ??SONAL Pattern: ?Homogeneous ?Test Performed by: ?[facility] - [facility] ?[address] [place] [address] ?Fitness/Wellness Director: Iggy Garcia M.D. Ph.D.; CLIA# [id number] ([id number]) [facility] Blood 03/19/2021 3:50 PM EST 03/20/2021 9:19 AM EST Narrative Resulting Agency Comment Spec In Lab Elsie Cristobal MD LAB SEND OUT ORDERAB LES [facility] [place] [address] * (ABNORMAL) Comprehensive metabolic panel (non-fasting) (03/19/2021 3:50 PM EST) Glucose 143 65 - 199 mg/dL [facility] Comment:Diabetes: >=200 mg/d L plus symptoms Blood Urea Nitrogen 20 10 - 20 mg/dL [facility] Creatinine 0.99 0.80 - 1.50 mg/dL [facility] Sodium 141 135 - 145 mmol/L [facility] Potassium 4.6 3.5 - 5.0 mmol/L [facility] Comment: Please note: ??Patients with WBC >100,000 may have falsely elevated Potassium levels. ??For accurate Potassium quantification in these patients send serum separator tube (gold top) for subsequent determinations. ??Contact the Clinical Chemistry Laboratory if there are any questions. Chloride 102 98 - 107 mmol/L [facility] Carbon Dioxide 25 22 - 31 mmol/L [facility] Anion Gap 14 5 - 15 mmol/L [facility] Calcium 9.9 8.5 - 10.5 mg/dL [facility] Protein, Total 7.6 6.1 - 8.0 g/dL [facility] Albumin 4.7 3.2 - 5.2 g/dL [facility] Aspartate Aminotransferase 116(H) 0 - 39 unit/L [facility] Alanine Aminotransferase 124(H) 0 - 55 unit/L [facility] Alkaline Phosphatase 77 40 - 130 unit/L [facility] Bilirubin, Total 0.6 0.2 - 1.3 mg/dL [facility] Est Glomerular Filtration Rate 76 >=60 mL/min/1. 73 m?? [facility] Comment: This patient? s estimated [...] In Lab Elsie Cristobal MD CHEMISTRY ORDERABLES [facility] [place] [address] * Hepatitis C Antibody (03/19/2021 3:50 PM EST) Hepatitis C Antibody Negative Negative [facility] Blood 03/19/2021 3:50 PM EST 03/19/2021 4:21 PM EST Narrative Resulting Agency Comment Spec In Lab Elsie Cristobal MD CHEMISTRY ORDERABLES [facility] [place] [address] * [id number] (03/19/2021 2:30 PM EST) Narrative Elsie Cristobal MD - 03/19/2021 2:30 PM EST Elsie Cristobal MD ? 03/19/2021 ??8:[address] [facility] Liver Fibrosis Assessment Report Indication: ??Fatty liver Performed by: ??Elsie Cristobal MD Procedure: Vibration Controlled Transient Elastography (VCTE) or Fibroscan [place] Protocol: Patient's identity, procedure and site were [...] disease documented in this encounter Care Teams Registered Private Duty Nurse Relationship Specialty Start Date End Date Dewayne Carrington MD PCP - General 09/02/16 documented as of this encounter
--- OUTSIDE RECORDS SUMMARY | 2024-05-09 16:16 | XMS_ITS | Encounter Summary ---
[place] [address] Care Team Providers Care Pharmacognosy Teacher Name Role Phone Dewayne Carrington MD Primary Care Provider [phone] Encounter Details Date Type Department Care Team (Late st Contact Info) Description 03/28/2021 Orders Only Cardiology at [address] [address] Social History Tobacco Use Types Packs/Day Years [...] AM EST Hospital Encounter Non-In[place] [address] Arrived documented as of this encounter Procedures [...] Therapy Details Presenting EGM IDCO Episode Identifier [id number] IDCO Episode Date Time IDCO Episode Type Category Other IDCO Episode Vendor Type Category XANDER IDCO Episode Detection Interval Ventricular 1,154 ms IDCO Episode Duration 53 s IDCO Episode Detection And Therapy Details [id number] Date Time IDCO Episode Type Category Other IDCO Episode Vendor Type Category XANDER IDCO Episode Detection Interval Ventricular 984 ms IDCO Episode Duration 174 s IDCO Episode Detection And Therapy Details IDCO Episode Identifier [id number] IDCO Episode Date Time IDCO Episode Type Category Other IDCO Episode Vendor Type Category XANDER IDCO Episode Detection Interval Ventricular 1,000 ms IDCO Episode Duration 60 s IDCO Episode Detection And Therapy Details IDCO Episode Identifier [id number] IDCO Episode Date Time IDCO Episode Type Category Other IDCO Episode Vendor Type Category XANDER IDCO Episode Detection Interval Ventricular 984 ms IDCO Episode Duration 58 s IDCO Episode Detection And Therapy Details IDCO Episode Identifier [id number] IDCO Episode Date Time IDCO Episode Type Category Other IDCO Episode Vendor Type Category XANDER IDCO Episode Detection Interval Ventricular 984 ms IDCO Episode Duration 59 s IDCO Episode Detection And Therapy Details IDCO Episode Identifier [id number] IDCO Episode Date Time IDCO Episode Type Category Other IDCO Episode Vendor Type Category XANDER IDCO Episode Detection Interval Ventricular 984 ms IDCO Episode Duration 59 s IDCO Episode Detection And Therapy Details IDCO Episode Identifier [id number] IDCO Episode Date Time IDCO Episode Type Category Other IDCO Episode Vendor Type Category XANDER IDCO Episode Detection Interval Ventricular 1,053 ms IDCO Episode Duration 63 s IDCO Episode Detection And Therapy Details IDCO Episode Identifier [id number] IDCO Episode Date Time IDCO Episode Type [...] E162 IDCO Implantable Pulse Generator Serial Number [id number] IDCO Implantable Pulse Generator Epic Application Coordinator [place] [employer] IDCO Implantable Pulse Generator Implant Date 20140110 IDCO Implantable Lead Model 4136 IDCO Implantable Lead Serial Number [id number] IDCO Implantable Lead Epic Application Coordinator Guidant IDCO Implantable Lead Implant Date 20130421 IDCO Implantable Lead Polarity Type Bipolar Lead IDCO Implantable Lead Location Right Atrium IDCO Implantable Lead Model 0292 IDCO Implantable Lead Serial Number [id number] IDCO Implantable Lead Epic Application Coordinator [place] [employer] IDCO Implantable Lead Implant Date IDCO [...] IDCO Lead Channel Pacing Threshold Measurement Method Blade Grader Operator Manual IDCO Lead Channel Pacing Threshold [...] IDCO Lead Channel Pacing Threshold Measurement Method Blade Grader Operator Manual IDCO Lead Channel Pacing Threshold [...] on filedocumented in this encounter Care Teams Pharmacognosy Teacher Relationship Specialty Start Date End Date Dewayne Carrington MD PCP - General 09/02/16 documented as of this encounter
--- OUTSIDE RECORDS SUMMARY | 2024-05-09 16:16 | XMS_ITS | Encounter Summary ---
Author Organization [facility] Address [facility] [place] [address] Care Team Providers Care Income Tax Adjuster Name Role Phone Dewayne Carrington MD Primary Care Provider [phone] Encounter Details Date Type Department Care Team (Late st Contact Info) Description 12/28/2020 Notes Only Cardiology at [address] [phone] Shaheen Molina MD [facility] [place] [address] [place] [place] [address] Social History Tobacco Use Types Packs/Day Years [...] preserved LVEF, RCA and LAD disease. Inferior HI on EKG, inferior WMA on echo. VT at 150 bpm, appears to be coming from cardiac crux. No significant femoral arterial disease or aortic stenosis. Shaheen Molina MD [facility] Cardiac Electrophysiology 12/28/2020 4:06 PM documented in this encounter Plan of Treatment Upcoming Encounters Date Type Department Care Team (Late st Contact Info) Description 06/15/2024 10:00 AM EST Hospital Encounter Non-Invasive [place] [phone] Arrived documented as of this encounter Visit Diagnoses Not on filedocumented in this encounter Care Teams Income Tax Adjuster Relationship Specialty Start Date End Date Dewayne Carrington MD PCP - General 09/02/16 documented as of this encounter
--- OUTSIDE RECORDS SUMMARY | 2024-05-09 16:16 | XMS_ITS | Encounter Summary ---
[place] [address] Care Team Providers Care Elementary School Music Teacher Name Role Phone Dewayne Carrington MD Primary Care Provider [phone] Encounter Details Date Type Department Care Team (Late st Contact Info) Description 12/27/2020 Orders Only Cardiology at [address] [address] Social History Tobacco Use Types Packs/Day Years [...] AM EST Hospital Encounter Non-[place] [address] Arrived documented as of this encounter Procedures Procedure Name Priority Date/Time Associated Diagnosis Comments CARDIAC DEVICE CHECK - REMOTE SCHEDULED Routine 12/27/2020 12:41 AM EDT documented in this encounter Results * Cardiac device check - Remote Scheduled (12/27/2020 12:41 AM EDT) Date Time Interrogation Session IDCO Type Interrogation Session Remote Scheduled IDCO Clinic Name [facility] IDCO Battery Date Time of [...] Therapy Details Presenting EGM IDCO Episode Identifier [id number] IDCO Episode Date Time IDCO Episode Type Category Other IDCO Episode Vendor Type Category XANDER IDCO Episode Detection Interval Ventricular 909 ms IDCO Episode Duration 53 s IDCO Episode Detection And Therapy Details IDCO Episode Identifier [id number] IDCO Episode Date Time IDCO Episode Type Category Other IDCO Episode Vendor Type Category XANDER IDCO Episode Detection Interval Ventricular 896 ms IDCO Episode Duration 53 s IDCO Episode Detection And Therapy Details IDCO Episode Identifier [id number] IDCO Episode Date Time IDCO Episode Type Category Other IDCO Episode Vendor Type Category XANDER IDCO Episode Detection Interval Ventricular 882 ms IDCO Episode Duration 51 s IDCO Episode Detection And Therapy Details IDCO Episode Identifier [id number] IDCO Episode Date Time IDCO Episode Type Category Other IDCO Episode Vendor Type Category XANDER IDCO Episode Detection Interval Ventricular 882 ms IDCO Episode Duration 50 s IDCO Episode Detection And Therapy Details IDCO Episode Identifier [id number] IDCO Episode Date Time IDCO Episode Type Category Other IDCO Episode Vendor Type Category XANDER IDCO Episode Detection Interval Ventricular 857 ms IDCO Episode Duration 49 s IDCO Episode Detection And Therapy Details IDCO Episode Identifier [id number] IDCO Episode Date Time IDCO Episode Type Category Other IDCO Episode Vendor Type Category XANDER IDCO Episode Detection Interval Ventricular 769 ms IDCO Episode Duration 42 s IDCO Episode Detection And Therapy Details IDCO Episode Identifier [id number] IDCO Episode Date Time IDCO Episode Type Category Other IDCO Episode Vendor Type Category XANDER IDCO Episode Detection Interval Ventricular 896 ms IDCO Episode Duration 52 s IDCO Episode Detection And Therapy Details IDCO Episode Identifier [id number] IDCO Episode Date Time IDCO Episode Type Category Other IDCO Episode Vendor Type Category XANDER IDCO Episode Detection Interval Ventricular 923 ms IDCO Episode Duration 52 s IDCO Episode Detection And Therapy Details IDCO Episode Identifier [id number] IDCO Episode Date Time IDCO Episode Type Category Other IDCO Episode Vendor Type Category XANDER IDCO Episode Detection Interval Ventricular 896 ms IDCO Episode Duration 53 s IDCO Episode Detection And Therapy Details IDCO Episode Identifier [id number] IDCO Episode Date Time IDCO Episode Type [...] E162 IDCO Implantable Pulse Generator Serial Number [id number] IDCO Implantable Pulse Generator Attending Radiologist [place] [employer] IDCO Implantable Pulse Generator Implant Date 20140110 IDCO Implantable Lead Model 4136 IDCO Implantable Lead Serial Number [id number] IDCO Implantable Lead Attending Radiologist Guidant IDCO Implantable Lead Implant Date 20130421 IDCO Implantable Lead Polarity Type Bipolar Lead IDCO Implantable Lead Location Right Atrium IDCO Implantable Lead Model 0292 IDCO Implantable Lead Serial Number [id number] IDCO Implantable Lead Attending Radiologist [place] [employer] IDCO Implantable Lead Implant Date IDCO [...] IDCO Lead Channel Pacing Threshold Measurement Method Insemination Worker Manual IDCO Lead Channel Pacing Threshold [...] IDCO Lead Channel Pacing Threshold Measurement Method Insemination Worker Manual IDCO Lead Channel Pacing Threshold [...] on filedocumented in this encounter Care Teams Elementary School Music Teacher Relationship Specialty Start Date End Date Dewayne Carrington MD PCP - General 09/02/16 documented as of this encounter
--- OUTSIDE RECORDS SUMMARY | 2024-05-09 16:16 | XMS_ITS | Encounter Summary ---
[place] [address] Care Team Providers Care Monitoring Engineer Name Role Phone Dewayne Carrington MD Primary Care Provider [phone] Encounter Details Date Type Department Care Team (Late st Contact Info) Description 06/27/2021 Orders Only Cardiology at [address] [address] Social History Tobacco Use Types Packs/Day Years [...] AM EST Hospital Encounter Non-Invasive [place] [address] Arrived documented as of this encounter Procedures Procedure Name Priority Date/Time Associated Diagnosis Comments CARDIAC DEVICE CHECK - REMOTE SCHEDULED Routine 06/27/2021 12:41 AM EST documented in this encounter Results * Cardiac device check - Remote Scheduled (06/27/2021 12:41 AM EST) Date Time Interrogation Session IDCO Type Interrogation Session Remote Scheduled IDCO Clinic Name [facility] IDCO Battery Date Time of Measurements [...] Therapy Details Presenting EGM IDCO Episode Identifier [id number] IDCO Episode Date Time IDCO Episode Type Category Other IDCO Episode Vendor Type Category XANDER IDCO Episode Detection Interval Ventricular 909 ms IDCO Episode Duration 53 s IDCO Episode Detection And Therapy Details IDCO Episode Identifier [id number] IDCO Episode Date Time IDCO Episode Type Category Other IDCO Episode Vendor Type Category XANDER IDCO Episode Detection Interval Ventricular 923 ms IDCO Episode Duration 54 s IDCO Episode Detection And Therapy Details IDCO Episode Identifier [id number] IDCO Episode Date Time IDCO Episode Type Category Other IDCO Episode Vendor Type Category XANDER IDCO Episode Detection Interval Ventricular 923 ms IDCO Episode Duration 53 s IDCO Episode Detection And Therapy Details IDCO Episode Identifier [id number] IDCO Episode Date Time IDCO Episode Type Category Other IDCO Episode Vendor Type Category XANDER IDCO Episode Detection Interval Ventricular 923 ms IDCO Episode Duration 139 s IDCO Episode Detection And Therapy Details IDCO Episode Identifier [id number] IDCO Episode Date Time IDCO Episode Type Category Other IDCO Episode Vendor Type Category XANDER IDCO Episode Detection Interval Ventricular 938 ms IDCO Episode Duration 110 s IDCO Episode Detection And Therapy Details IDCO Episode Identifier [id number] IDCO Episode Date Time IDCO Episode Type Category Other IDCO Episode Vendor Type Category XANDER IDCO Episode Detection Interval Ventricular 938 ms IDCO Episode Duration 56 s IDCO Episode Detection And Therapy Details IDCO Episode Identifier [id number] IDCO Episode Date Time IDCO Episode Type Category Other IDCO Episode Vendor Type Category XANDER IDCO Episode Detection Interval Ventricular 952 ms IDCO Episode Duration 58 s IDCO Episode Detection And Therapy Details IDCO Episode Identifier [id number] IDCO Episode Date Time IDCO Episode Type Category Other IDCO Episode Vendor Type Category XANDER IDCO Episode Detection Interval Ventricular 952 ms IDCO Episode Duration 56 s IDCO Episode Detection And Therapy Details IDCO Episode Identifier [id number] IDCO Episode Date Time IDCO Episode Type Category Other IDCO Episode Vendor Type Category XANDER IDCO Episode Detection Interval Ventricular 952 ms IDCO Episode Duration 57 s IDCO Episode Detection And Therapy Details IDCO Episode Identifier [id number] IDCO Episode Date Time IDCO Episode Type [...] E162 IDCO Implantable Pulse Generator Serial Number [id number] IDCO Implantable Pulse Generator Distance Learning Unit Leader [place] [employer] IDCO Implantable Pulse Generator Implant Date 20140110 IDCO Implantable Lead Model 4136 IDCO Implantable Lead Serial Number [id number] IDCO Implantable Lead Distance Learning Unit Leader Guidant IDCO Implantable Lead Implant Date 20130421 IDCO Implantable Lead Polarity Type Bipolar Lead IDCO Implantable Lead Location Right Atrium IDCO Implantable Lead Model 0292 IDCO Implantable Lead Serial Number [id number] IDCO Implantable Lead Distance Learning Unit Leader [place] IDCO Implantable Lead Implant Date IDCO [...] IDCO Lead Channel Pacing Threshold Measurement Method Physical Sciences Instructor Manual IDCO Lead Channel Pacing Threshold Polarity [...] IDCO Lead Channel Pacing Threshold Measurement Method Physical Sciences Instructor Manual IDCO Lead Channel Pacing Threshold Polarity [...]
--- OUTSIDE RECORDS SUMMARY | 2024-05-09 16:16 | XMS_ITS | Encounter Summary ---
[place] [address] Care Team Providers Care Financial Analysis Manager Name Role Phone Dewayne Carrington MD Primary Care Provider [phone] Encounter Details Date Type Department Care Team (Late st Contact Info) Description 09/17/2021 Orders Only Cardiology at [address] [address] Social History Tobacco Use Types Packs/Day Years [...] AM EST Hospital Encounter Non-[place] [address] Arrived documented as of this encounter Procedures Procedure Name Priority Date/Time Associated Diagnosis Comments CARDIAC DEVICE CHECK - REMOTE Routine 09/17/2021 11:35 AM EDT documented in this encounter Results * Cardiac Device Check - Remote (09/17/2021 11:35 AM EDT) Date Time Interrogation Session IDCO Type Interrogation Session Remote IDCO Clinic Name [facility] IDCO Battery Date Time of [...] Capacitor Charge Type Shock IDCO Episode Identifier [id number] IDCO Episode Date Time IDCO Episode Type Category Other IDCO Episode Vendor Type Category XANDER IDCO Episode Detection Interval Ventricular 1,071 ms IDCO Episode Duration 59 s IDCO Episode Detection And Therapy Details IDCO Episode Identifier [id number] IDCO Episode Date Time IDCO Episode Type Category Other IDCO Episode Vendor Type Category XANDER IDCO Episode Detection Interval Ventricular 909 ms IDCO Episode Duration 51 s IDCO Episode Detection And Therapy Details IDCO Episode Identifier [id number] IDCO Episode Date Time IDCO Episode Type Category Other IDCO Episode Vendor Type Category XANDER IDCO Episode Detection Interval Ventricular 923 ms IDCO Episode Duration 53 s IDCO Episode Detection And Therapy Details IDCO Episode Identifier [id number] IDCO Episode Date Time IDCO Episode Type Category Other IDCO Episode Vendor Type Category XANDER IDCO Episode Detection Interval Ventricular 1,277 ms IDCO Episode Duration 60 s IDCO Episode Detection And Therapy Details IDCO Episode Identifier -[id number] IDCO Episode Date Time IDCO Episode Type Category Other IDCO Episode Vendor Type Category XANDER IDCO Episode Detection Interval Ventricular 952 ms IDCO Episode Duration 57 s IDCO Episode Detection And Therapy Details IDCO Episode Identifier -[id number] IDCO Episode Date Time IDCO Episode Type Category Other IDCO Episode Vendor Type Category XANDER IDCO Episode Detection Interval Ventricular 1,000 ms IDCO Episode Duration 60 s IDCO Episode Detection And Therapy Details IDCO Episode Identifier -[id number] IDCO Episode Date Time IDCO Episode Type Category Other IDCO Episode Vendor Type Category XANDER IDCO Episode Detection Interval Ventricular 1,364 ms IDCO Episode Duration 1,669 s IDCO Episode Detection And Therapy Details Q IDCO Episode Identifier [id number] IDCO Episode Date Time IDCO Episode Type Category Other IDCO Episode Vendor Type Category XANDER IDCO Episode Detection Interval Ventricular 938 ms IDCO Episode Duration 55 s IDCO Episode Detection And Therapy Details IDCO Episode Identifier [id number] IDCO Episode Date Time IDCO Episode Type Category Other IDCO Episode Vendor Type Category XANDER IDCO Episode Detection Interval Ventricular 1,132 ms IDCO Episode Duration 53 s IDCO Episode Detection And Therapy Details IDCO Episode Identifier [id number] IDCO Episode Date Time IDCO Episode Type [...] E162 IDCO Implantable Pulse Generator Serial Number [id number] IDCO Implantable Pulse Generator Drying Room Operator [place] [employer] IDCO Implantable Pulse Generator Implant Date 20140110 IDCO Implantable Lead Model 4136 IDCO Implantable Lead Serial Number [id number] IDCO Implantable Lead Drying Room Operator Guidant IDCO Implantable Lead Implant Date 20130421 IDCO Implantable Lead Polarity Type Bipolar Lead IDCO Implantable Lead Location Right Atrium IDCO Implantable Lead Model 0292 IDCO Implantable Lead Serial Number [id number] IDCO Implantable Lead Drying Room Operator [place] [employer] IDCO Implantable Lead Implant Date IDCO [...] Lead Channel Pacing Threshold Measurement Method Chair And Couch Maker Manual IDCO Lead Channel Pacing Threshold [...] Lead Channel Pacing Threshold Measurement Method Chair And Couch Maker Manual IDCO Lead Channel Pacing Threshold [...] filedocumented in this encounter Care Teams Financial Analysis Manager Relationship Specialty Start Date End Date Dewayne Carrington MD PCP - General 09/02/16 documented as of this encounter
--- OUTSIDE RECORDS SUMMARY | 2024-05-09 16:16 | XMS_ITS | Encounter Summary ---
Author Organization [facility] Address [facility] [place] [address] Care Team Providers Care Zigzag Machine Operator Name Role Phone Dewayne Carrington MD Primary Care Provider [phone] Encounter Details Date Type Department Care Team (Latest Contact Info) Description 03/28/2021 12:11 PM EST - 03/28/2021 11:59 PM EST Hospital Encounter Non-[place] [address] Ta Negron MD [facility] [place] [address] Ventricular tachycardia Discharge Disposition: Home Social History [...] AM EST Hospital Encounter Non-[place] [address] Arrived documented as of this encounter Procedures Procedure Name Priority Date/Time Associated Diagnosis Comments ICD INTERROGATION 3 MONTH Routine 03/28/2021 12:11 PM EST Ventricular tachycardia documented in this encounter Results * ICD INTERROGATION 3 MONTH (03/28/2021 12:11 PM EST) Anatomical Region Laterality Modality Other Narrative 03/29/2021 4:43 PM EST Cardiac Device Remote Monitoring Report Summary [employer] Latitude Device: ICD Model: INCEPTA Battery: Beginning [...] tachycardia documented in this encounter Care Teams Zigzag Machine Operator Relationship Specialty Start Date End Date Dewayne Carrington MD PCP - General 09/02/16 documented as of this encounter
--- OUTSIDE RECORDS SUMMARY | 2024-05-09 16:16 | XMS_ITS | Encounter Summary ---
Author Organization [facility] Address [facility] [place] [address] Care Team Providers Care Fashion Intern Name Role Phone Dewayne Carrington MD Primary Care Provider [phone] Encounter Details Date Type Department Care Team (Latest Contact Info) Description 12/27/2020 3:04 PM EDT - 12/27/2020 11:59 PM EDT Hospital Encounter [place] [address] Shaheen Molina MD [facility]LECT[facility] [address] V-tach Discharge Disposition: Home Social History Tobacco [...] AM EST Hospital Encounter [place] [address] Arrived documented as of this [...] tachycardia documented in this encounter Care Teams Fashion Intern Relationship Specialty Start Date End Date Dewayne Carrington MD PCP - General 09/02/16 documented as of this encounter
--- OUTSIDE RECORDS SUMMARY | 2024-05-09 16:16 | XMS_ITS | Encounter Summary ---
[place] [address] Care Team Providers Care Hand Mexican Food Maker Name Role Phone Dewayne Carrington MD Primary Care Provider [phone] Encounter Details Date Type Department Care Team (Late st Contact Info) Description 11/20/2021 Orders Only Cardiology at [address] [address] Social History Tobacco Use Types Packs/Day Years [...] AM EST Hospital Encounter Non-In[place] [address] Arrived documented as of this encounter Procedures Procedure Name Priority Date/Time Associated Diagnosis Comments CARDIAC DEVICE CHECK - REMOTE Routine 11/20/2021 9:51 AM EDT documented in this encounter Results * Cardiac Device Check - Remote (11/20/2021 9:51 AM EDT) Date Time Interrogation Session IDCO Type Interrogation Session Remote IDCO Clinic Name [facility] IDCO Battery Date Time of Measurements [...] Capacitor Charge Type Shock IDCO Episode Identifier [id number] IDCO Episode Date Time IDCO Episode Type Category Other IDCO Episode Vendor Type Category XANDER IDCO Episode Detection Interval Ventricular 1,000 ms IDCO Episode Duration 60 s IDCO Episode Detection And Therapy Details IDCO Episode Identifier [id number] IDCO Episode Date Time IDCO Episode Type Category Other IDCO Episode Vendor Type Category XANDER IDCO Episode Detection Interval Ventricular 1,364 ms IDCO Episode Duration 64 s IDCO Episode Detection And Therapy Details IDCO Episode Identifier [id number] IDCO Episode Date Time IDCO Episode Type Category Other IDCO Episode Vendor Type Category XANDER IDCO Episode Detection Interval Ventricular 923 ms IDCO Episode Duration 96 s IDCO Episode Detection And Therapy Details IDCO Episode Identifier [id number] IDCO Episode Date Time [id number] IDCO Episode Type Category Other IDCO Episode Vendor Type Category XANDER IDCO Episode Detection Interval Ventricular 1,000 ms IDCO Episode Duration 101 s IDCO Episode Detection And Therapy Details IDCO Episode Identifier [id number] IDCO Episode Date Time IDCO Episode Type Category Other IDCO Episode Vendor Type Category XANDER IDCO Episode Detection Interval Ventricular 1,034 ms IDCO Episode Duration 55 s IDCO Episode Detection And Therapy Details IDCO Episode Identifier [id number] IDCO Episode Date Time IDCO Episode Type Category Other IDCO Episode Vendor Type Category XANDER IDCO Episode Detection Interval Ventricular 1,053 ms IDCO Episode Duration 55 s IDCO Episode Detection And Therapy Details IDCO Episode Identifier [id number] IDCO Episode Date Time IDCO Episode Type Category Other IDCO Episode Vendor Type Category XANDER IDCO Episode Detection Interval Ventricular 1,017 ms IDCO Episode Duration 56 s IDCO Episode Detection And Therapy Details IDCO Episode Identifier [id number] IDCO Episode Date Time IDCO Episode Type Category Other IDCO Episode Vendor Type Category XANDER IDCO Episode Detection Interval Ventricular 968 ms IDCO Episode Duration 56 s IDCO Episode Detection And Therapy Details IDCO Episode Identifier [id number] IDCO Episode Date Time IDCO Episode Type Category Other IDCO Episode Vendor Type Category XANDER IDCO Episode Detection Interval Ventricular 1,034 ms IDCO Episode Duration 55 s IDCO Episode Detection And Therapy Details IDCO Episode Identifier [id number] IDCO Episode Date Time IDCO Episode Type [...] E162 IDCO Implantable Pulse Generator Serial Number [id number] IDCO Implantable Pulse Generator Maintenance Worker [place] [employer] IDCO Implantable Pulse Generator Implant Date 20140110 IDCO Implantable Lead Model 4136 IDCO Implantable Lead Serial Number [id number] IDCO Implantable Lead Maintenance Worker Guidant IDCO Implantable Lead Implant Date 20130421 IDCO Implantable Lead Polarity Type Bipolar Lead IDCO Implantable Lead Location Right Atrium IDCO Implantable Lead Model 0292 IDCO Implantable Lead Serial Number [id number] IDCO Implantable Lead Maintenance Worker [place] [employer] IDCO Implantable Lead Implant Date IDCO [...] IDCO Lead Channel Pacing Threshold Measurement Method Profile Saw Operator Manual IDCO Lead Channel Pacing Threshold [...] IDCO Lead Channel Pacing Threshold Measurement Method Profile Saw Operator Manual IDCO Lead Channel Pacing Threshold [...] on filedocumented in this encounter Care Teams Hand Mexican Food Maker Relationship Specialty Start Date End Date Dewayne Carrington MD PCP - General 09/02/16 documented as of this encounter
--- OUTSIDE RECORDS SUMMARY | 2024-05-09 16:16 | XMS_ITS | Encounter Summary ---
[place] [address] Care Team Providers Care Bark Grinder Name Role Phone Dewayne Carrington MD Primary Care Provider [phone] Encounter Details Date Type Department Care Team (Late st Contact Info) Description 09/26/2021 Orders Only Cardiology at [address] [address] Social History Tobacco Use Types Packs/Day Years [...] EST Hospital Encounter Non-[place] [address] Arrived documented as of this encounter Procedures [...] Therapy Details Presenting EGM IDCO Episode Identifier [id number] IDCO Episode Date Time IDCO Episode Type Category Other IDCO Episode Vendor Type Category XANDER IDCO Episode Detection Interval Ventricular 1,000 ms IDCO Episode Duration 47 s IDCO Episode Detection And Therapy Details IDCO Episode Identifier [id number] IDCO Episode Date Time IDCO Episode Type Category Other IDCO Episode Vendor Type Category XANDER IDCO Episode Detection Interval Ventricular 1,053 ms IDCO Episode Duration 48 s IDCO Episode Detection And Therapy Details IDCO Episode Identifier [id number] IDCO Episode Date Time IDCO Episode Type Category Other IDCO Episode Vendor Type Category XANDER IDCO Episode Detection Interval Ventricular 845 ms IDCO Episode Duration 45 s IDCO Episode Detection And Therapy Details IDCO Episode Identifier [id number] IDCO Episode Date Time IDCO Episode Type Category Other IDCO Episode Vendor Type Category XANDER IDCO Episode Detection Interval Ventricular 1,017 ms IDCO Episode Duration 50 s IDCO Episode Detection And Therapy Details IDCO Episode Identifier [id number] IDCO Episode Date Time IDCO Episode Type Category Other IDCO Episode Vendor Type Category XANDER IDCO Episode Detection Interval Ventricular 811 ms IDCO Episode Duration 43 s IDCO Episode Detection And Therapy Details IDCO Episode Identifier [id number] IDCO Episode Date Time IDCO Episode Type Category Other IDCO Episode Vendor Type Category XANDER IDCO Episode Detection Interval Ventricular 822 ms IDCO Episode Duration 45 s IDCO Episode Detection And Therapy Details IDCO Episode Identifier [id number] IDCO Episode Date Time IDCO Episode Type Category Other IDCO Episode Vendor Type Category XANDER IDCO Episode Detection Interval Ventricular 896 ms IDCO Episode Duration 47 s IDCO Episode Detection And Therapy Details IDCO Episode Identifier [id number] IDCO Episode Date Time IDCO Episode Type Category Other IDCO Episode Vendor Type Category XANDER IDCO Episode Detection Interval Ventricular 811 ms IDCO Episode Duration 47 s IDCO Episode Detection And Therapy Details IDCO Episode Identifier [id number] IDCO Episode Date Time IDCO Episode Type Category Other IDCO Episode Vendor Type Category XANDER IDCO Episode Detection Interval Ventricular 882 ms IDCO Episode Duration 47 s IDCO Episode Detection And Therapy Details IDCO Episode Identifier [id number] IDCO Episode Date Time IDCO Episode Type [...] E162 IDCO Implantable Pulse Generator Serial Number [id number] IDCO Implantable Pulse Generator Deputy Manager [employer]le[employer] IDCO Implantable Pulse Generator Implant Date 20140110 IDCO Implantable Lead Model 4136 IDCO Implantable Lead Serial Number [id number] IDCO Implantable Lead Deputy Manager Guidant IDCO Implantable Lead Implant Date 20130421 IDCO Implantable Lead Polarity Type Bipolar Lead IDCO Implantable Lead Location Right Atrium IDCO Implantable Lead Model 0292 IDCO Implantable Lead Serial Number [id number] IDCO Implantable Lead Deputy Manager [employer] IDCO Implantable Lead Implant Date IDCO [...] IDCO Lead Channel Pacing Threshold Measurement Method Heavy Machinery Assembler Manual IDCO Lead Channel Pacing Threshold Polarity [...] IDCO Lead Channel Pacing Threshold Measurement Method Heavy Machinery Assembler Manual IDCO Lead Channel Pacing Threshold Polarity Bipolar IDCO Lead Channel Impedance Value 600 ohms IDCO Lead Channel Impedance Polarity Bipolar IDCO Lead High Voltage Channel Date Time [id number] IDCO Lead High Voltage Channel Impedance 89 ohms IDCO Lead High Voltage Channel Measurement Type Low Voltage Pulse IDCO Statistic Date Time Start [id number] IDCO Statistic Date Time End [id number] IDCO [...] on filedocumented in this encounter Care Teams Bark Grinder Relationship Specialty Start Date End Date Dewayne Carrington MD PCP - General 09/02/16 documented as of this encounter
--- OUTSIDE RECORDS SUMMARY | 2024-05-09 16:16 | XMS_ITS | Encounter Summary ---
Author Organization [facility] Address [facility] [place] [address] Care Team Providers Care Division Operations Manager Name Role Phone Dewayne Carrington MD Primary Care Provider [phone] Encounter Details Date Type Department Care Team (Latest Contact Info) Description 06/27/2021 2:16 PM EST - 06/27/2021 11:59 PM EST Hospital Encounter Non[place] [address] Shaheen Molina MD [facility] [place] [address] V-tach Discharge Disposition: Home Social History Tobacco [...] tachycardia documented in this encounter Care Teams Division Operations Manager Relationship Specialty Start Date End Date Dewayne Carrington MD PCP - General 09/02/16 documented as of this encounter
--- OUTSIDE RECORDS SUMMARY | 2024-05-09 16:17 | XMS_ITS | Encounter Summary ---
Author Organization Replaced By [facility] [place] [address] Care Team Providers Care Hitting Coach Name Role Phone Dewayne Carrington MD Primary Care Provider [phone] Encounter Details Date Type Department Care Team (Late st Contact Info) Description 11/28/2020 Telephone Cardiology at [address] [phone] Ania Rosa MD Social History Tobacco Use [...] AM EDT Spoke with Dr. Cheng at [facility], patient was admitted yesterday with symptomatic ventricular tachycardia (ECGs scanned in our system). VT rate ws 150bpm, below detection threshold for his device. Patient underwent cardioversion and amiodarone drip. Advised a transition to amiodarone 400mg BID after 24 hours of drip to continue a load and to reachout to [employer] for device reprogramming. Will require f/u in clinic with Dr. Matos. Ania Rosa MD 11/28/2020 documented in this encounter Plan of Treatment Upcoming Encounters Date Type Department Care Team (Late st Contact Info) Description 06/15/2024 10:00 AM EST Hospital Encounter Non-[place] [address] Arrived documented as of this encounter Visit Diagnoses Not on filedocumented in this encounter Care Teams Hitting Coach Relationship Specialty Start Date End Date Dewayne Carrington MD PCP - General 09/02/16 documented as of this encounter
--- OUTSIDE RECORDS SUMMARY | 2024-05-09 16:17 | XMS_ITS | Encounter Summary ---
[place] [address] Care Team Providers Care Architecture Internship Name Role Phone Dewayne Carrington MD Primary Care Provider Encounter Details Date Type Department Care Team (Late st Contact Info) Description 09/24/2020 Orders Only Cardiology at [address] [address] Social History Tobacco Use Types Packs/Day Years [...] AM EST Hospital Encounter [place] [address] Arrived documented as of this encounter Procedures Procedure Name Priority Date/Time Associated Diagnosis Comments CARDIAC DEVICE CHECK - REMOTE DEVICE INITIATED Routine 09/24/2020 12:41 AM EDT documented in this encounter Results * Cardiac device check - Remote Device Initiated (09/24/2020 12:41 AM EDT) Date Time Interrogation Session [id number] IDCO Type Interrogation Session Remote Device Initiated IDCO Clinic Name [facility] IDCO Battery Date Time of Measurements [id number] IDCO Battery Status Beginning of Service IDCO Battery Remaining Longevity 36 mo IDCO Battery Remaining Percentage 44 % IDCO Capacitor Last Charge Date Time [id number] IDCO Capacitor Charge Time 11.2 s IDCO Capacitor Charge Type Reformation IDCO Capacitor Last Charge Date Time [id number] IDCO Capacitor Charge Time 3.8 s IDCO [...] Episode Identifier [id number] IDCO Episode Date Time [id number] IDCO Episode Type Category AT/AF IDCO Episode [...] E162 IDCO Implantable Pulse Generator Serial Number [id number] IDCO Implantable Pulse Generator Green Chain Off Bearer ipadio IDCO Implantable Pulse Generator Implant Date 20140110 IDCO Implantable Lead Model 4136 IDCO Implantable Lead Serial Number [id number] IDCO Implantable Lead Green Chain Off Bearer GuidRuffaloCODY IDCO Implantable Lead Implant Date 20130421 IDCO Implantable Lead Polarity Type Bipolar Lead IDCO Implantable Lead Location Right Atrium IDCO Implantable Lead Model 0292 IDCO Implantable Lead Serial Number [id number] IDCO Implantable Lead Green Chain Off Bearer [employer]it [employer] IDCO Implantable Lead Implant Date IDCO [...] IDCO Lead Channel Pacing Threshold Measurement Method Hydrography Teacher Manual IDCO Lead Channel Pacing Threshold [...] IDCO Lead Channel Pacing Threshold Measurement Method Hydrography Teacher Manual IDCO Lead Channel Pacing Threshold [...] on filedocumented in this encounter Care Teams Architecture Internship Relationship Specialty Start Date End Date Dewayne Carrington MD PCP - General 09/02/16 documented as of this encounter
--- OUTSIDE RECORDS SUMMARY | 2024-05-09 16:17 | XMS_ITS | Encounter Summary ---
Author Organization [facility] [place] [address] Care Team Providers Care Textile Colorist Formulator Name Role Phone Dewayne Carrington MD Primary Care Provider [phone] Encounter Details Date Type Department Care Team ([facility] st Contact Info) Description 10/18/2020 Telephone Cardiology at [address] [phone] Aileen Larios RN Social History Tobacco Use [...] to procedure. NPO after midnight. Understands that electric pile driver operator is needed to transport them upon discharge. documented in this encounter Plan of Treatment Upcoming Encounters Date Type Department Care Team (Late st Contact Info) Description 06/15/2024 10:00 AM EST Hospital Encounter Non-[place] [address] Arrived documented as of this encounter Visit Diagnoses Not on filedocumented in this encounter Care Teams Textile Colorist Formulator Relationship Specialty Start Date End Date Dewayne Carrington MD PCP - General 09/02/16 documented as of this encounter
--- OUTSIDE RECORDS SUMMARY | 2024-05-09 16:17 | XMS_ITS | Encounter Summary ---
[place] [address] Care Team Providers Care Cook Fruit Name Role Phone Dewayne Carrington MD Primary Care Provider Encounter Details Date Type Department Care Team (Late st Contact Info) Description 11/27/2020 [place] [address] Social History Tobacco Use Types Packs/Day Years [...] AM EST Hospital Encounter Non-[place] [address] Arrived documented as of this encounter Procedures Procedure Name Priority Date/Time Associated Diagnosis Comments ECG SCAN Routine 11/27/2020 documented in this encounter Results * Scan Doc: ECG (11/27/2020) Historical Provider MD LARIOS MGR SCAN EX T ORDR/RSLT documented in this encounter Visit Diagnoses Not on filedocumented in this encounter Care Teams Cook Fruit Relationship Specialty Start Date End Date Dewayne Carrington MD PCP - General 09/02/16 documented as of this encounter
--- OUTSIDE RECORDS SUMMARY | 2024-05-09 16:17 | XMS_ITS | Encounter Summary ---
Author Organization [facility] [place] [address] Care Team Providers Care Bus Escort Name Role Phone Dewayne Carrington MD Primary Care Provider [phone] Reason for Visit * Auth/Cert Specialty Diagnoses / Procedures Referred By Rosa t Referred To Contact Diagnoses persistent atrial fibrillation Procedures PRO CARDIOVERSION ELECTIVE ARRHYTHMIA EXTERNAL CARDIOVERSION-ELECTIVE (WRVU 2.25) Referral ID Status Reason Start Date Expiration Date Visits Re quested Visits Authorized [id number] 1 1 Encounter Details Date Type Department Care Team (Late st Contact Info) Description 10/23/2020 11:30 AM EDT - 10/23/2020 12:00 PM EDT Surgery [place] [address] Fantasma Mtaos MD [facility] [place] [place] [address] CARDIOVERSION-ELECTIVE (WRVU 2) Social History Tobacco Use [...] the adhesive pads were placed, call the mill tender warm up transonic engineer at . We will schedule a follow-up appointment with the mill tender warm up here, or you will be scheduled to see your local doctor soon. Any specific instructions that apply to you will be given to you prior to discharge from the hospital. If you have any questions, call the Cardiology Department at Thursday through Thursday 8:00 a.m. to 4:30 p.m. * Attachments The following attachments cannot be sent through Care Everywhere. * Cardioversion: Post-op ([place] Islander) documented in this encounter Medications at Time [...] Overview Note: ?? Heart catheterization in [facility] in 2007 with placement of a stent in an unspecified vessel ?? Repeat heart catheterization in 2008 with placement of stents to both the LAD and circumflex ?? Followup heart catheterization in 2008 showing stable results in both vessels ?? Recurrent chest discomfort in a somewhat atypical pattern beginning fall ?? Nuclear stress test at [facility] in [place], [place] May 02, 2013 [...] the LAD 0.85 ?? Nuclear stress test [facility] August 2016 reportedly showing a small [...] 80 (documented on ICD interrogation 07/18/14) ?? [id number] score = 3 ?? Patient initially reluctant to be anticoagulated as recommended ??? Atrial pacemaker lead displacement Overview Note: New finding at office follow up 04/10/2014 Plan lead reposition/replacement ??? ICD (implantable cardioverter-defibrillator), dual, in situ Overview Note: New Atrial electrode: Guidant Dextrus Model# 4126-53 cm Serial# [id number] ?? Bipolar, steroid-tipped, active-fixation IS-1 lead ?? [...] at 10 V: No Old Ventricular electrode: [employer] - Financial Reconciliation Atkinson Model# 0292 Serial# [id number] ?? Bipolar, steroid-tipped, active-fixation DF-4 lead ?? [...] Atrial electrode: Guidant Dextrus Model# 4136 Serial# [id number] ?? Bipolar, steroid-tipped, active-fixation IS-1 lead ?? Access: Axillary vein ?? Location Removed 04/17/2014 ?? Implanted: 01/10/2014 Pulse generator: [employer] - Financial Reconciliation Incepta Model# E162 Serial# [id number] ?? DDDR ICD ?? Location: Subcutaneous The [...] past medical history. Pertinent Medications: No current [facility]-ordered facility-administered medications on file. Current Outpatient Medications Ordered in [facility] Medication Sig Dispense Refill ??? [email or web address] [...] Attending: Fantasma Matos MD 10/23/2020 Service Pager: [phone] documented in this encounter Miscellaneous Notes * Op Note - Fantasma Matos MD - 10/23/2020 11:35 AM EDT [facility] Operative Note Patient Name: Marquez Hendrix : [id number] MR#: [id number] Case Date: 10/23/2020 Surgeon: Surgeon(s) and Role: * Fantasma Matos MD - Primary * David Garner PA-C - Carriage Dogger Preoperative diagnosis: persistent atrial fibrillation Postoperative diagnosis: [...] interrogation confirmed conversion. DEVICE INTERROGATION: Device type: [employer] Incepta ICD E 162 [id number] implanted 01/10/2014 Programmed: DDDR w/ mode switch [...] AM EST Hospital Encounter Non[place] [address] Arrived documented as of this encounter Procedures Procedure Name Priority Date/Time Associated Diagnosis Comments EKG 12-LEAD STAT 10/23/2020 11:54 AM EDT PAF (paroxysmal atrial fibrillation) Cardioversion Elective Arrhythmia External (21997) 10/23/2020 11:25 AM EDT Persistent atrial fibrillation [...] (Bezet) 472 ms MUSE SYSTEM Calculated P Escalante 49 degrees MUSE SYSTEM Calculated R Escalante -51 degrees MUSE SYSTEM INTERPRETATION Sinus rhythm with 1st degree A-V block Left axis deviation Low voltage QRS Inferior infarct (cited on or before 23-OCT-2020) Cannot rule out Anterior infarct (cited on or before 06-NOV-2016) Abnormal ECG When compared with ECG of 23-OCT-2020 09:23, Sinus rhythm has replaced Atrial fibrillation Nonspecific T wave abnormality, improved in Lateral leads Confirmed by MD Davin, [facility] ([id number]) on 10/23/2020 12:10:37 PM MUSE SYSTEM 10/23/2020 [...] Routine documented in this encounter Care Teams Bus Escort Relationship Specialty Start Date End Date Dewayne Carrington MD PCP - General 09/02/16 documented as of this encounter
--- OUTSIDE RECORDS SUMMARY | 2024-05-09 16:17 | XMS_ITS | Encounter Summary ---
[place] [address] Care Team Providers Care Air Bag Curer Name Role Phone Dewayne Carrington MD Primary Care Provider [phone] Encounter Details Date Type Department Care Team (Late st Contact Info) Description 09/20/2020 Orders Only Cardiology at [address] [address] Social History Tobacco Use Types Packs/Day Years [...] AM EST Hospital Encounter Non-Invasive [place] [address] Arrived documented as of this encounter Procedures Procedure Name Priority Date/Time Associated Diagnosis Comments CARDIAC DEVICE CHECK - REMOTE DEVICE INITIATED Routine 09/20/2020 12:41 AM EDT documented in this encounter Results * Cardiac device check - Remote Device Initiated (09/20/2020 12:41 AM EDT) Date Time Interrogation Session [id number] IDCO Type Interrogation Session Remote Device Initiated IDCO Clinic Name [facility] IDCO Battery Date Time of Measurements IDCO Battery Status Beginning of Service IDCO Battery Remaining Longevity 36 mo IDCO Battery Remaining Percentage 42 % IDCO Capacitor Last Charge Date Time [id number] IDCO Capacitor Charge Time 11.2 s IDCO Capacitor Charge Type Reformation IDCO Capacitor Last Charge Date Time [id number] IDCO Capacitor Charge Time 3.8 s IDCO [...] E162 IDCO Implantable Pulse Generator Serial Number [id number] IDCO Implantable Pulse Generator Caster Operator [employer] IDCO Implantable Pulse Generator Implant Date 20140110 IDCO Implantable Lead Model 4136 IDCO Implantable Lead Serial Number [id number] IDCO Implantable Lead Caster Operator Guidant IDCO Implantable Lead Implant Date 20130421 IDCO Implantable Lead Polarity Type Bipolar Lead IDCO Implantable Lead Location Right Atrium IDCO Implantable Lead Model 0292 IDCO Implantable Lead Serial Number [id number] IDCO Implantable Lead Caster Operator [employer] IDCO Implantable Lead Implant Date IDCO [...] Lead Channel Pacing Threshold Measurement Method Residential Property Manager Manual IDCO Lead Channel Pacing Threshold [...] Lead Channel Pacing Threshold Measurement Method Residential Property Manager Manual IDCO Lead Channel Pacing Threshold [...] on filedocumented in this encounter Care Teams Air Bag Curer Relationship Specialty Start Date End Date Dewayne Carrington MD PCP - General 09/02/16 documented as of this encounter
--- OUTSIDE RECORDS SUMMARY | 2024-05-09 16:17 | XMS_ITS | Encounter Summary ---
[place] [address] Care Team Providers Care Carton Forming Machine Helper Name Role Phone Dewayne Carrington MD Primary Care Provider [phone] Encounter Details Date Type Department Care Team (Late st Contact Info) Description 11/22/2020 Orders Only Cardiology at [address] [address] Social History Tobacco Use Types Packs/Day Years [...] AM EST Hospital Encounter Non-Invasive [place] [address] Arrived documented as of this encounter Procedures Procedure Name Priority Date/Time Associated Diagnosis Comments CARDIAC DEVICE CHECK - REMOTE DEVICE INITIATED Routine 11/22/2020 12:42 AM EDT documented in this encounter Results * Cardiac device check - Remote Device Initiated (11/22/2020 12:42 AM EDT) Date Time Interrogation Session IDCO Type Interrogation Session Remote Device Initiated IDCO Clinic Name [facility] IDCO Battery Date Time of [...] Therapy Details Presenting EGM IDCO Episode Identifier [id number] IDCO Episode Date Time IDCO Episode Type [...] And Therapy Details ATR IDCO Episode Identifier [id number] IDCO Episode Date Time IDCO Episode Type Category Other IDCO Episode Vendor Type Category XANDER IDCO Episode Detection Interval Ventricular 659 ms IDCO Episode Duration 43 s IDCO Episode Detection And Therapy Details IDCO Episode Identifier [id number] IDCO Episode Date Time IDCO Episode Type Category Other IDCO Episode Vendor Type Category XANDER IDCO Episode Detection Interval Ventricular 1,017 ms IDCO Episode Duration 60 s IDCO Episode Detection And Therapy Details IDCO Episode Identifier [id number] IDCO Episode Date Time IDCO Episode Type Category Other IDCO Episode Vendor Type Category XANDER IDCO Episode Detection Interval Ventricular 1,000 ms IDCO Episode Duration 58 s IDCO Episode Detection And Therapy Details IDCO Episode Identifier [id number] IDCO Episode Date Time IDCO Episode Type Category Other IDCO Episode Vendor Type Category XANDER IDCO Episode Detection Interval Ventricular 938 ms IDCO Episode Duration 52 s IDCO Episode Detection And Therapy Details IDCO Episode Identifier [id number] IDCO Episode Date Time [id number] IDCO Episode Type Category Other IDCO Episode Vendor Type Category XANDER IDCO Episode Detection Interval Ventricular 857 ms IDCO Episode Duration 50 s IDCO Episode Detection And Therapy Details IDCO Episode Identifier [id number] IDCO Episode Date Time [id number] IDCO Episode Type Category Other IDCO Episode Vendor Type Category XANDER IDCO Episode Detection Interval Ventricular 714 ms IDCO Episode Duration 38 s IDCO Episode Detection And Therapy Details IDCO Episode Identifier [facility]-[id number] IDCO Episode Date Time [id number] IDCO Episode Type Category Other IDCO Episode Vendor Type Category XANDER IDCO Episode Detection Interval Ventricular 741 ms IDCO Episode Duration 39 s IDCO Episode Detection And Therapy Details IDCO Episode Identifier [facility]-[id number] IDCO Episode Date Time [id number] IDCO Episode Type Category Other IDCO Episode Vendor Type Category XANDER IDCO Episode Detection Interval Ventricular 1,017 ms IDCO Episode Duration 56 s IDCO Episode Detection And Therapy Details IDCO Episode Identifier [facility]-[id number] IDCO Episode Date Time [id number] IDCO Episode Type Category Other IDCO Episode [...] E162 IDCO Implantable Pulse Generator Serial Number [id number] IDCO Implantable Pulse Generator Parts Department Manager [employer] IDCO Implantable Pulse Generator Implant Date 20140110 IDCO Implantable Lead Model 4136 IDCO Implantable Lead Serial Number [id number] IDCO Implantable Lead Parts Department Manager Guidant IDCO Implantable Lead Implant Date 20130421 IDCO Implantable Lead Polarity Type Bipolar Lead IDCO Implantable Lead Location Right Atrium IDCO Implantable Lead Model 0292 IDCO Implantable Lead Serial Number [id number] IDCO Implantable Lead Parts Department Manager [employer] IDCO Implantable Lead Implant Date IDCO [...] IDCO Lead Channel Pacing Threshold Measurement Method Die Sizer Manual IDCO Lead Channel Pacing Threshold Polarity [...] IDCO Lead Channel Pacing Threshold Measurement Method Die Sizer Manual IDCO Lead Channel Pacing Threshold Polarity [...] on filedocumented in this encounter Care Teams Carton Forming Machine Helper Relationship Specialty Start Date End Date Dewayne Carrington MD PCP - General 09/02/16 documented as of this encounter
--- OUTSIDE RECORDS SUMMARY | 2024-05-09 16:17 | XMS_ITS | Encounter Summary ---
[place] [address] Care Team Providers Care Catering Driver Name Role Phone Dewayne Carrington MD Primary Care Provider [phone] Encounter Details Date Type Department Care Team (Late st Contact Info) Description 09/14/2020 Orders Only Cardiology at [address] [address] Social History Tobacco Use Types Packs/Day Years [...] AM EST Hospital Encounter [place] [address] Arrived documented as of this encounter Procedures Procedure Name Priority Date/Time Associated Diagnosis Comments CARDIAC DEVICE CHECK - REMOTE DEVICE INITIATED Routine 09/14/2020 12:42 AM EDT documented in this encounter Results * Cardiac device check - Remote Device Initiated (09/14/2020 12:42 AM EDT) Date Time Interrogation Session [id number] IDCO Type Interrogation Session Remote Device Initiated IDCO Clinic Name [facility] Shirin [facility] IDCO Battery Date Time of Measurements [id number] IDCO Battery Status Beginning of Service IDCO Battery Remaining Longevity 42 mo IDCO Battery Remaining Percentage 46 % IDCO Capacitor Last Charge Date Time [id number] IDCO Capacitor Charge Time 11.2 s IDCO Capacitor Charge Type Reformation IDCO Capacitor Last Charge Date Time [id number] IDCO Capacitor Charge Time 3.8 s IDCO Capacitor Charge Energy 21 J IDCO Capacitor Charge Type Shock IDCO Episode Identifier [id number] IDCO Episode Date Time [id number] IDCO Episode Type Category Periodic EGM IDCO [...] Episode Identifier [id number] IDCO Episode Date Time [id number] IDCO Episode Type Category AT/AF IDCO Episode [...] E162 IDCO Implantable Pulse Generator Serial Number [id number] IDCO Implantable Pulse Generator Reproduction Machine Loader [place] [employer] IDCO Implantable Pulse Generator Implant Date 20140110 IDCO Implantable Lead Model 4136 IDCO Implantable Lead Serial Number [id number] IDCO Implantable Lead Reproduction Machine Loader Guidant IDCO Implantable Lead Implant Date 20130421 IDCO Implantable Lead Polarity Type Bipolar Lead IDCO Implantable Lead Location Right Atrium IDCO Implantable Lead Model 0292 IDCO Implantable Lead Serial Number [id number] IDCO Implantable Lead Reproduction Machine Loader [place] [employer] IDCO Implantable Lead Implant Date IDCO [...] IDCO Lead Channel Pacing Threshold Measurement Method Airplane Pilot Helper Manual IDCO Lead Channel Pacing Threshold [...] IDCO Lead Channel Pacing Threshold Measurement Method Airplane Pilot Helper Manual IDCO Lead Channel Pacing Threshold [...] on filedocumented in this encounter Care Teams Catering Driver Relationship Specialty Start Date End Date Dewayne Carrington MD PCP - General 09/02/16 documented as of this encounter
--- OUTSIDE RECORDS SUMMARY | 2024-05-09 16:17 | XMS_ITS | Encounter Summary ---
[place] [address] Care Team Providers Care Mri Technician Name Role Phone Dewayne Carrington MD Primary Care Provider [phone] Encounter Details Date Type Department Care Team (Late st Contact Info) Description 09/26/2020 Orders Only Cardiology at [address] [address] Social History Tobacco Use Types Packs/Day Years [...] AM EST Hospital Encounter Non[place] [address] Arrived documented as of this encounter Procedures Procedure Name Priority Date/Time Associated Diagnosis Comments CARDIAC DEVICE CHECK - REMOTE DEVICE INITIATED Routine 09/26/2020 12:41 AM EDT documented in this encounter Results * Cardiac device check - Remote Device Initiated (09/26/2020 12:41 AM EDT) Date Time Interrogation Session [id number] IDCO Type Interrogation Session Remote Device Initiated IDCO Clinic Name [facility] Shirin [facility] IDCO Battery Date Time of Measurements IDCO Battery Status Beginning of Service IDCO Battery Remaining Longevity 36 mo IDCO Battery Remaining Percentage 44 % IDCO Capacitor Last Charge Date Time [id number] IDCO Capacitor Charge Time 11.2 s IDCO [...] E162 IDCO Implantable Pulse Generator Serial Number [id number] IDCO Implantable Pulse Generator Wallpaper Hanger [place] [employer] IDCO Implantable Pulse Generator Implant Date 20140110 IDCO Implantable Lead Model 4136 IDCO Implantable Lead Serial Number [id number] IDCO Implantable Lead Wallpaper Hanger Guidant IDCO Implantable Lead Implant Date 20130421 IDCO Implantable Lead Polarity Type Bipolar Lead IDCO Implantable Lead Location Right Atrium IDCO Implantable Lead Model 0292 IDCO Implantable Lead Serial Number [id number] IDCO Implantable Lead Wallpaper Hanger [place] [employer] IDCO Implantable Lead Implant Date IDCO [...] IDCO Lead Channel Pacing Threshold Measurement Method Lathmaker Manual IDCO Lead Channel Pacing Threshold Polarity [...] IDCO Lead Channel Pacing Threshold Measurement Method Lathmaker Manual IDCO Lead Channel Pacing Threshold Polarity [...] on filedocumented in this encounter Care Teams Mri Technician Relationship Specialty Start Date End Date Dewayne Carrington MD PCP - General 09/02/16 documented as of this encounter
--- OUTSIDE RECORDS SUMMARY | 2024-05-09 16:17 | XMS_ITS | Encounter Summary ---
[place] [address] Care Team Providers Care Systems Mgr Name Role Phone Dewayne Carrington MD Primary Care Provider [phone] Encounter Details Date Type Department Care Team (Late st Contact Info) Description 12/07/2020 Orders Only Cardiology at [address] [address] Sita Myers RN Sustained VT (ventricular tachycardia) [...] AM EST Hospital Encounter Non-[place]vasive [place] [address] Arrived documented as of this encounter Visit Diagnoses Diagnosis Sustained VT (ventricular tachycardia) Paroxysmal ventricular tachycardia documented in this encounter Care Teams Systems Mgr Relationship Specialty Start Date End Date Dewayne Carrington MD PCP - General 09/02/16 documented as of this encounter
--- OUTSIDE RECORDS SUMMARY | 2024-05-09 16:17 | XMS_ITS | Encounter Summary ---
Author Organization [facility] [place] [address] Care Team Providers Care Banking Manager Name Role Phone Dewayne Carrington MD Primary Care Provider [phone] Reason for Visit * Auth/Cert Specialty Diagnoses / Procedures Referred By Contac t Referred To Contact Diagnoses persistent atrial fibrillation Procedures PRO CARDIOVERSION ELECTIVE ARRHYTHMIA EXTERNAL CARDIOVERSION-ELECTIVE (WRVU 2.25) Referral ID Status Reason Start Date Expiration Date Visits Re quested Visits Authorized [id number] 1 1 Encounter Details Date Type Department Care Team (Late st Contact Info) Description 10/23/2020 11:25 AM EDT Anesthesia Event Main [place] [phone] Kyra Spear MD [facility] [place] [address] Deepthi Monique CRNA [facility] [place] [address] Anesthesia Record Procedure Summary Procedure Name Responsible [...] Yaron Don RN 12/16/21 1715 by Timoteo Blela Incision 04/17/14; chest; 12/16/21 (LDA cleanup utility RA#[id number]); 1715 (LDA cleanup utility RA#[id number]) 04/17/14 0000 by Cheryle Lopes RN 12/16/21 1715 by Timoteo Bella (RETIRED) Peripheral IV Line - Single Lumen 10/23/20; 1118; metacarpal vein (top of hand), right; [id number] catheter system; Anatomical Landmarks; 22 gauge; rtrn; [...] Procedure Summary Date: 10/23/20 Room / Location: [facility] / [facility] Anesthesia Start: 1125 Anesthesia Stop: 1144 Procedure: CARDIOVERSION-ELECTIVE (WRVU 2.25) (N/A Chest) Diagnosis: Persistent atrial fibrillation (persistent atrial fibrillation) Surgeons: Fantasma Matos MD Responsible Provider: Kyra Spear MD Anesthesia Type: MAC ASA Status: 3 All Anesthesia Providers: Anesthesiologist: Kyra Spear MD XM1 TANK DRIVER: Deepthi Monique CRNA Student Nurse Mortgage Specialist: Brooke Montano Vitals Value Taken Time BP 114/69 10/23/20 1241 Temp 36 ??C (96.8 ??F) 10/23/20 1146 Pulse 63 10/23/20 1241 Resp 16 10/23/20 1241 SpO2 99 % 10/23/20 1241 Pain Level 0 10/23/20 1241 [facility] Level of Consciousness: Awake and Alert Pain [...] (arteriosclerotic cardiovascular disease) ?? Heart catheterization in [facility] in 2007 with placement of a stent in an unspecified vessel ?? Repeat heart catheterization in 2008 with placement of stents to both the LAD and circumflex ?? Followup heart catheterization in 2008 showing stable results in both vessels ?? Recurrent chest discomfort in a somewhat atypical pattern beginning fall ?? Nuclear stress test at [facility] in [place], [place] May 02, 2013 during which he developed left shoulder and arm discomfort during submaximal exercise on the treadmill and after which he was converted to a pharmacologic test; nuclear imaging showed ejection fraction of 45% with a partially reversible inferior defect ?? Cath [facility] 05/13/2013: normal left main, mild diffuse disease throughout the LAD with an 80% mid stenosis representing a restenosis lesion, mild diffuse disease in the proximal obtuse marginal branch, and mild diffuse disease throughout the right coronary artery; status post 3.0 X 12 mm JON to 80%mid-LAD lesion (in-stent restenosis) ?? Heart catheterization [facility] January 06, 2014 showing normal left main, hazy 50% mid LAD stenosis, mild diffuse disease throughout the circumflex, and moderate diffuse disease in the proximal RCA with a totally occluded distal RCA with brisk flow via bridging collaterals; fractional flow reserveon the LAD 0.85 ?? Nuclear stress test [facility] August 2016 reportedly showing a small area [...] 80 (documented on ICD interrogation 07/18/14) ?? [id number] score = 3 ?? Patient initially reluctant to be anticoagulated as recommended ??? Atrial pacemaker lead displacement New finding at office follow up 04/10/2014 Plan lead reposition/replacement ??? ICD (implantable cardioverter-defibrillator), dual, in situ New Atrial electrode: Guidant Dextrus Model# 4126-53 cm Serial# [id number] ?? Bipolar, steroid-tipped, active-fixation IS-1 lead ?? [...] at 10 V: No Old Ventricular electrode: [employer] [place] Model# 0292 Serial# [id number] ?? Bipolar, steroid-tipped, active-fixation DF-4 lead ?? [...] Atrial electrode: Guidant Dextrus Model# 4136 Serial# [id number] ?? Bipolar, steroid-tipped, active-fixation IS-1 lead ?? Access: Axillary vein ?? Location Removed 04/17/2014 ?? Implanted: 01/10/2014 Pulse generator: [employer] Model# E162 Serial# [id number] ?? DDDR ICD ?? Location: Subcutaneous The [...] WITH BIOPSY performed by KYRA VYAS at [facility] Social History Tobacco Use ??? Smoking [...] I will be working with either a XM1 TANK DRIVER or resident physician. A resident physician means a physician who is in training to be an anesthesiologist. The patient acknowledged these risks and would like to proceed with the anesthesia plan. Sedation. Informed Consent: Anesthetic plan and risks discussed with patient. Plan discussed with XM1 TANK DRIVER. Anesthesia Screening documented in this encounter Miscellaneous Notes * Addendum Note - Kyra Spear MD - 10/23/2020 1:49 PM EDT Addendum created 10/23/20 1349 by Kyra Spear MD Clinical Note Signed documented in this encounter Plan of Treatment Upcoming Encounters Date Type Department Care Team (Late st Contact Info) Description 06/15/2024 10:00 AM EST Hospital Encounter Non-Invasive Cardiology Lab [facility] [place] [address] Arrived documented as of this encounter Visit [...] mg documented in this encounter Care Teams Banking Manager Relationship Specialty Start Date End Date Dewayne Carrington MD PCP - General 09/02/16 documented as of this encounter
--- OUTSIDE RECORDS SUMMARY | 2024-05-09 16:17 | XMS_ITS | Encounter Summary ---
Author Organization Formerly [facility] Address [facility] [place] [address] Care Team Providers Care Benefits Director Name Role Phone Dewayne Carrington MD Primary Care Provider [phone] Encounter Details Date Type Department Care Team ([facility] st Contact Info) Description 09/12/2020 [place] [address] Loraine Santacruz, OIL PAINTER [facility] [place] [address] Social History Tobacco Use Types Packs/Day Years [...] this encounter Progress Notes * Loraine Santacruz, OIL PAINTER - 09/12/2020 7:58 AM EDT Cardiac Device Remote Monitoring Report Summary Ambient Control Systems [facility] 09/12/20 Device: ICD Model: INCEPTA Battery: [facility] Non[place] [address] Arrived documented as of this encounter Visit Diagnoses Not on filedocumented in this encounter Care Teams Benefits Director Relationship Specialty Start Date End Date Dewayne Carrington MD PCP - General 09/02/16 documented as of this encounter
--- OUTSIDE RECORDS SUMMARY | 2024-05-09 16:17 | XMS_ITS | Encounter Summary ---
Author Organization [facility] [place] [address] Care Team Providers Care Soda Dispenser Name Role Phone Dewayne Crarington MD Primary Care Provider [phone] Reason for Visit * Auth/Cert Specialty Diagnoses / Procedures Referred By Rosa t Referred To Contact Diagnoses persistent atrial fibrillation Procedures PRO CARDIOVERSION ELECTIVE ARRHYTHMIA EXTERNAL CARDIOVERSION-ELECTIVE (WRVU 2.25) Referral ID Status Reason Start Date Expiration Date Visits Re quested Visits Authorized [id number] 1 1 Encounter Details Date Type Department Care Team (Latest Contact Info) Description 10/23/2020 8:50 AM EDT Laboratory Appointment Lab [address] [place] [address] Persistent atrial fibrillation Social History Tobacco Use [...] AM EST Hospital Encounter Non[place] [address] Arrived documented as of this encounter Procedures Procedure Name Priority Date/Time Associated Diagnosis Comments HC MAGNESIUM, SERUM Routine 10/23/2020 9:05 AM EDT Persistent atrial fibrillation BASIC METABOLIC PANEL Routine 10/23/2020 9:05 AM EDT Persistent atrial fibrillation documented in this encounter Results * (ABNORMAL) Basic Metabolic Panel (non-fasting) (10/23/2020 9:05 AM EDT) Glucose 263(H) 65 - 199 mg/dL [facility] Comment:Diabetes: >=200 mg/d L plus symptoms Blood Urea Nitrogen 25(H) 10 - 20 mg/dL [facility] [...] - 107 mmol/L [facility] Carbon Dioxide 27 22 - 31 mmol/L [facility] Anion Gap 10 5 - 15 mmol/L [facility] Calcium 9.5 8.5 - 10.5 mg/dL [facility] Est Glomerular Filtration Rate 86 >=60 mL/min/1. 73 m?? [facility] [...] Daly MD CHEMISTRY ORDERABLES Performing Organization Address [facility] Co de Phone Number [facility] [place] [address] * Magnesium (10/23/2020 9:05 AM EDT) Magnesium 0.81 0.69 - 1.07 mmol/L [facility] Blood 10/23/2020 9:05 AM EDT 10/23/2020 9:09 AM EDT Narrative Resulting Agency Comment Spec In Lab Irena Daly MD CHEMISTRY ORDERABLES Performing Organization Address [facility] Co de Phone Number [facility] [place] [address] documented in this encounter Visit Diagnoses Diagnosis Persistent atrial fibrillation Atrial fibrillation documented in this encounter Care Teams Soda Dispenser Relationship Specialty Start Date End Date Dewayne Carrington MD PCP - General 09/02/16 documented as of this encounter
--- OUTSIDE RECORDS SUMMARY | 2024-05-09 16:17 | XMS_ITS | Encounter Summary ---
Author Organization [facility] Address [facility] [place] [address] Care Team Providers Care Senior Net Programmer Name Role Phone Dewayne Carrington MD Primary Care Provider [phone] Encounter Details Date Type Department Care Team ([facility] st Contact Info) Description 12/03/2020 Notes Only Cardiology at [address] [address] Edy Torres PA [facility] [place] [address] Social History Tobacco Use Types Packs/Day Years [...] Monitoring Interpretation ?? Transmission Date: 12/01/2020 Device Instrument Fitter and Type: [employer] dual lead ICD Battery Status: good; [...] success ?? Impression: Normally functioning dual lead [employer] ICD Hx of PAF, anticoagulated with xarelto ; most recent DCCV at [facility] on 10/24/2020 Hx of NSVT and VT - most recently seen @ [facility] on 11/28(cardioverted and loaded with amiodarone). ATPhas been applied in the past with variable success. ??Scheduled for outpatient follow up 12/12/2020 [facility] w/Dr. Matos ?? Provider: MAXIMO Leija EP Consult attending physician documented in this encounter Plan of Treatment Upcoming Encounters Date Type Department Care Team (Late st Contact Info) Description 06/15/2024 10:00 AM EST Hospital Encounter Non-Invasive [place] [address] Arrived documented as of this encounter Visit Diagnoses Not on filedocumented in this encounter Care Teams Senior Net Programmer Relationship Specialty Start Date End Date Dewayne Carrington MD PCP - General 09/02/16 documented as of this encounter
--- OUTSIDE RECORDS SUMMARY | 2024-05-09 16:17 | XMS_ITS | Encounter Summary ---
Author Organization [facility] Address [facility] [place] [address] Care Team Providers Care Box Worker Name Role Phone Dewayne Carrington MD Primary Care Provider Encounter Details Date Type Department Care Team ([facility] st Contact Info) Description 09/24/2020 [place] [phone] Kylee Bowling PA [facility] [place] [address] Social History Tobacco Use Types Packs/Day Years [...] pdf document Date of transmission: 09/24/20 Device strategic manager: BSI Device type: DC ICD H/o afib on Xarelto, metoprolol succinate 250mg po daily Presenting rhythm: AF/VS AP 0% DIETARY SUPERVISOR 19% Battery: 3 years Episodes: 19 tachy [...] seen by Dr. Molina on 05/23/20 at [facility]) MAXIMO Bo 09/24/2020 8:45 AM [...] [facility] Hospital Encounter [place] [address] Arrived documented as of this encounter Visit Diagnoses Not on filedocumented in this encounter Care Teams Box Worker Relationship Specialty Start Date End Date Dewayne Carrington MD PCP - General 09/02/16 documented as of this encounter
--- OUTSIDE RECORDS SUMMARY | 2024-05-09 16:17 | XMS_ITS | Encounter Summary ---
Author Organization Formerly [facility] Address [facility] [place] [address] Care Team Providers Care Clay Grinder Name Role Phone Dewayne Carrington MD Primary Care Provider [phone] Encounter Details Date Type Department Care Team (Late st Contact Info) Description 11/27/2020 [place] [address] Daniela Torres MD Social History Tobacco Use [...] PM Referring provider: Dr. Fitzpatrick Patient location: [facility] Past Medical History: HTN CAD: ?? Heart catheterization in [facility] in 2007 with placement of a stent in an unspecified vessel ?? Repeat heart catheterization in 2008 with placement of stents to both the LAD and circumflex ?? Followup heart catheterization in 2008 showing stable results in both vessels ?? Recurrent chest discomfort in a somewhat atypical pattern beginning fall ?? Nuclear stress test at [facility] in [place], [place] May 02, 2013 during which he developed left shoulder and arm discomfort during submaximal exercise on the treadmill and after which he was converted to a pharmacologic test; nuclear imaging showed ejection fraction of 45% with a partially reversible inferior defect ?? Cath [facility] 05/13/2013: normal left main, mild diffuse disease throughout the LAD with an 80% mid stenosis representing a restenosis lesion, mild diffuse disease in the proximal obtuse marginal branch, and mild diffuse disease throughout the right coronary artery; status post 3.0 X 12 mm JON to 80%mid-LAD lesion (in-stent restenosis) ?? Heart catheterization [facility] January 06, 2014 showing normal left main, hazy 50% mid LAD stenosis, mild diffuse disease throughout the circumflex, and moderate diffuse disease in the proximal RCA with a totally occluded distal RCA with brisk flow via bridging collaterals; fractional flow reserveon the LAD 0.85 ?? [facility] stress [facility] August 2016 reportedly showing a [...] every night without issue. On arrival to [facility], he was found to be in stable VT. He ultimately became hypotensive to the 90s and was cardioverted there. His VT was a rate of 150bpm (EKG in our system). Initial troponin is negative and he denies chest pain and other symptoms with the exception of sudden onset this evening. I reviewed his ICD settings in our chart here at [facility], and he has two VT detection zones. [...] Contact Info) Description 06/15/2024 10:00 AM [facility] Hospital Encounter Non[place] [address] Arrived documented as of this encounter Visit Diagnoses Not on filedocumented in this encounter Care Teams Clay Grinder Relationship Specialty Start Date End Date Dewayne Carrington MD PCP - General 09/02/16 documented as of this encounter
--- OUTSIDE RECORDS SUMMARY | 2024-05-09 16:17 | XMS_ITS | Encounter Summary ---
[place] [address] Care Team Providers Care Reinforcing Iron And Rebar Workers Name Role Phone Dewayne Carrington MD Primary Care Provider [phone] Encounter Details Date Type Department Care Team (Late st Contact Info) Description 11/27/2020 [place] [address] Daniela Torres MD Social History [...] AM EST Hospital Encounter Non[place] [address] Arrived documented as of this encounter Visit Diagnoses Not on filedocumented in this encounter Care Teams Reinforcing Iron And Rebar Workers Relationship Specialty Start Date End Date Dewayne Carrington MD PCP - General 09/02/16 documented as of this encounter
--- OUTSIDE RECORDS SUMMARY | 2024-05-09 16:17 | XMS_ITS | Encounter Summary ---
Author Organization [facility] Address [facility] [place] [address] Care Team Providers Care Retail Associate Manager Bilingual Name Role Phone Dewayne Carrington MD Primary Care Provider [phone] Encounter Details Date Type Department Care Team ([facility] st Contact Info) Description 12/12/2020 10:40 AM EDT Office Visit Cardiology at [address] [phone] Fantasma Matos MD [facility] [place] [address] [place] [address] Sustained VT (ventricular tachycardia); Persistent atrial fibrillation; [...] NIGHTLY (I've sent a new prescriptions to [facility]) Continue metoprolol succinate 100 mg TWICE a day I will arrange for you to follow up w/ my gustavo Molina at [facility] documented in this encounter Progress Notes * Fantasma Matos MD - 12/12/2020 10:40 AM EDT Cardiac Electrophysiology Marquez Hendrix Is a 70 yo man from [facility] with ischemic cardiomyopathy who was seen in Cardiac Electrophysiology clinic in follow-up for sustained VT. He is known to me from a cardioversion for persistent AF performed in October 2020. His [id number] is >>1 and he is appropriately anticpagulated on Xarelto. He has a dual-chamber [employer] [employer] ICD, and has had both successful and unsuccessful ATP in the past. On or around 11/28/20 he was seen at [facility] feeling suddenly poorly and was found to [...] LFTs. ? Fatty liver. Raising concerns re: residential amiodarone. Patient Active Problem List Diagnosis Code [...] therapy will help maintain 2) AF / [id number] = at least 4 for age >64 [...] convenience, EP follow-up w/ Dr. Molina at [facility] where patient hasmet this provider previously. He may elect to reduce amiodarone down to 200 mg daily at his discretion. Patient indicated understanding of and agreement w/ the immediate plans as outlined above. Continued remote monitoring will be useful. Fantasma Matos MD, PhD, [facility] Cardiac Electrophysiology documented in this encounter Plan of Treatment Upcoming Encounters Date Type Department Care Team (Late st Contact Info) Description 06/15/2024 10:00 AM EST Hospital Encounter Non-[place] [phone] Arrived documented as of this encounter Procedures [...] Stimulating Hormone 0.93 0.27 - 4.20 mcIU/mL [facility] Comment: Reference Interval (mcIU/mL): Females: ??First Trimester: 0.23-3.88 ??Second Trimester: 0.22-3.90 ??Third Trimester: 0.44-4.66 Blood 12/12/2020 12:1 2 PM EDT 12/12/2020 12:19 PM EDT Narrative Resulting Agency Comment Spec In Lab Fantasma Matos MD CHEMISTRY ORDERABLES Performing Organization Address City/[facility]/ZIP Co de Phone Number [facility] [place] [address] * (ABNORMAL) Hepatic Function Panel (12/12/2020 12:12 PM EDT) [facility] Protein, Total 7.5 6.1 - 8.0 gm/dL [facility] Albumin 4.7 3.2 - 5.2 gm/dL [facility] Aspartate Aminotransferase 57(H) 0 - 39 unit/L [facility] Alanine Aminotransferase 57(H) 0 - 55 unit/L [facility] Alkaline Phosphatase 83 40 - 130 unit/L [facility] Bilirubin, Total 0.5 0.2 - 1.3 mg/dL [facility] Bilirubin, Direct 0.2 0.0 - 0.3 mg/dL [facility] Blood 12/12/2020 12:1 2 PM EDT 12/12/2020 12:19 PM EDT Narrative Resulting Agency Comment Spec In Lab Fantasma Matos MD CHEMISTRY ORDERABLES Performing Organization Address [facility] Co de Phone Number [facility] [place] [address] * EKG 12 Lead (12/12/2020 10:44 AM EDT) Pathologist [facility] Ventricular rate 55 BPM MUSE SYSTEM Atrial Rate 55 BPM MUSE SYSTEM P-R Interval 290 ms MUSE SYSTEM QRS Duration 130 ms MUSE SYSTEM Q-T Interval 494 ms MUSE SYSTEM QTC Calculated (Bezet) 472 ms MUSE SYSTEM Calculated R [place] -67 degrees MUSE SYSTEM INTERPRETATION Atrial-paced rhythm [...] disease documented in this encounter Care Teams Retail Associate Manager Bilingual Relationship Specialty Start Date End Date Dewayne Carrington MD PCP - General 09/02/16 documented as of this encounter
--- OUTSIDE RECORDS SUMMARY | 2024-05-09 16:17 | XMS_ITS | Encounter Summary ---
Author Organization [facility] Address [facility] [place] [address] Care Team Providers Care Shirt Ironer Name Role Phone Dewayne Carrington MD Primary Care Provider [phone] Reason for Visit * Auth/Cert Specialty Diagnoses / Procedures Referred By Contac t Referred To Contact Diagnoses persistent atrial fibrillation Procedures PRO CARDIOVERSION ELECTIVE ARRHYTHMIA EXTERNAL CARDIOVERSION-ELECTIVE (WRVU 2.25) Referral ID Status Reason Start Date Expiration Date Visits Re quested Visits Authorized [id number] 1 1 Encounter Details Date Type Department Care Team (Late st Contact Info) Description 10/23/2020 9:30 AM EDT Office Visit Cardiology at [address] [phone] David Garner PA [facility] [address] Persistent atrial fibrillation Social History Tobacco Use [...] beginning fall ?? Nuclear stress test at [facility] in [place], [place] May 02, 2013 during which he developed left shoulder and arm discomfort during submaximal exercise on the treadmill and after which he was converted to a pharmacologic test; nuclear imaging showed ejection fraction of 45% with a partially reversible inferior defect ?? Cath [facility] 05/13/2013: normal left main, mild diffuse disease throughout the LAD with an 80% mid stenosis representing a restenosis lesion, mild diffuse disease in the proximal obtuse marginal branch, and mild diffuse disease throughout the right coronary artery; status post 3.0 X 12 mm JON to 80%mid-LAD lesion (in-stent restenosis) ?? Heart catheterization [facility] January 06, 2014 showing normal left main, hazy 50% mid LAD stenosis, mild diffuse disease throughout the circumflex, and moderate diffuse disease in the proximal RCA with a totally occluded distal RCA with brisk flow via bridging collaterals; fractional flow reserveon the LAD 0.85 ?? Nuclear stress test [facility] August 2016 reportedly showing [...] 80 (documented on ICD interrogation 07/18/14) ?? [id number] score = 3 ?? Patient initially reluctant to be anticoagulated as recommended ??? Atrial pacemaker lead displacement Overview Note: New finding at office follow up 04/10/2014 Plan lead reposition/replacement ??? ICD (implantable cardioverter-defibrillator), dual, in situ Overview Note: New Atrial electrode: Guidant Dextrus Model# 4126-53 cm Serial# [id number] ?? Bipolar, steroid-tipped, active-fixation IS-1 lead ?? [...] at 10 V: No Old Ventricular electrode: [employer] Model# 0292 Serial# [id number] ?? Bipolar, steroid-tipped, active-fixation DF-4 lead ?? [...] Atrial electrode: Guidant Dextrus Model# 4136 Serial# [id number] ?? Bipolar, steroid-tipped, active-fixation IS-1 lead ?? Access: Axillary vein ?? Location Removed 04/17/2014 ?? Implanted: 01/10/2014 Pulse generator: [employer] Incepta Model# E162 Serial# [id number] ?? DDDR ICD ?? Location: Subcutaneous The [...] Vitals: 10/23/20 0921 BP: 127/68 BP Location ([facility]): Left arm Patient Position: Sitting Pulse: 68 [...] AM EST Hospital Encounter Non-Invasive [place] [address] Arrived documented as of this encounter Procedures [...] (Bezet) 396 ms MUSE SYSTEM Calculated R [place] -58 degrees MUSE SYSTEM Calculated T [place] -45 degrees MUSE SYSTEM INTERPRETATION Demand pacemaker; interpretation is based on intrinsic rhythm Atrial fibrillation with premature ventricular or aberrantly conducted complexes Left axis deviation Inferior infarct , age undetermined Possible Anterior infarct (cited on or before 06-NOV-2016) Abnormal ECG When compared with ECG of 06-NOV-2016 13:03, Atrial fibrillation has replaced Sinus rhythm Confirmed by MD Davin, [facility] ([id number]) on 10/23/2020 9:47:44 AM MUSE SYSTEM 10/23/2020 9:23 AM EDT 10/23/2020 9:47 AM EDT Irena Daly MD ECG ORDERABLES MUSE SYSTEM documented in this encounter Visit Diagnoses Diagnosis Persistent atrial fibrillation Atrial fibrillation documented in this encounter Care Teams Shirt Ironer Relationship Specialty Start Date End Date Dewayne Carrington MD PCP - General 09/02/16 documented as of this encounter
--- OUTSIDE RECORDS SUMMARY | 2024-05-09 16:17 | XMS_ITS | Encounter Summary ---
Author Organization [facility] Address [facility] [place] [address] Care Team Providers Care Configuration Management Administrator Name Role Phone Dewayne Carrington MD Primary Care Provider [phone] Encounter Details Date Type Department Care Team ([facility] st Contact Info) Description 09/18/2020 1:00 PM EDT Office Visit Cardiology at [address] [address] David Garner PA [facility] [place] [address] Sustained VT (ventricular tachycardia); ICD (implantable cardioverter-defibril [...] PM EDT Cardiac Device Interrogation Marquez Hendrix [id number] 09/18/2020 History: Mr. Hendrix is a pleasant [...] electrode: Guidant Dextrus Model# 4126-53 cm Serial# [id number], implanted 04/17/2014 ?? Bipolar, steroid-tipped, active-fixation IS-1 lead ?? Access: Axillary vein ?? Location Right atrial appendage ?? Old Ventricular electrode: [place] [employer] [place] Model# 0292 Serial# [id number] ?? Bipolar, steroid-tipped, active-fixation DF-4 lead ?? Access: Axillary vein ?? Location: Right ventricular apex ?? Implanted: 01/10/2014 ?? Pulse generator: [place] [employer] Incepta Model# E162 Serial# [id number] ?? DDDR ICD ?? Location: Subcutaneous Diagnostics [...] would prefer to have it done at [facility]). MAXIMO Avila 09/18/2020 documented in this encounter Miscellaneous Notes * Addendum Note - David Garner PA - 09/18/2020 1:00 PM EDTAddended by: DAVID GARNER on: 10/02/2020 11:11 PM Modules accepted: Orders documented in this encounter Plan of Treatment Upcoming Encounters Date Type Department Care Team (Late st Contact Info) Description 06/15/2024 10:00 AM [facility] Hospital Encounter [place] [address] Arrived documented as of this encounter Visit Diagnoses Diagnosis Sustained VT (ventricular tachycardia) Paroxysmal ventricular tachycardia ICD (implantable cardioverter-defibrillator), dual, in situ Persistent atrial fibrillation Atrial fibrillation documented in this encounter Care Teams Configuration Management Administrator Relationship Specialty Start Date End Date Dewayne Carrington MD PCP - General 09/02/16 documented as of this encounter
--- OUTSIDE RECORDS SUMMARY | 2024-05-09 16:17 | XMS_ITS | Encounter Summary ---
Author Organization [facility] [place] [address] Care Team Providers Care Manager Strategic Partnerships Name Role Phone Dewayne Carrington MD Primary Care Provider [phone] Reason for Visit * Auth/Cert Specialty Diagnoses / Procedures Referred By Conteddie t Referred To Contact Diagnoses persistent atrial fibrillation Procedures PRO CARDIOVERSION ELECTIVE ARRHYTHMIA EXTERNAL CARDIOVERSION-ELECTIVE (WRVU 2.25) Referral ID Status Reason Start Date Expiration Date Visits Re quested Visits Authorized [id number] 1 1 Encounter Details Date Type Department Care Team (Latest Contact Info) Description 10/23/2020 10:15 AM EDT - 10/23/2020 12:55 PM EDT Hospital Encounter [place] [address] Fantasma Matos MD [facility] [place] [address] Persistent atrial fibrillation; PAF (paroxysmal atrial fibrillation) [...] the adhesive pads were placed, call the business development engineer stonecutter assistant at . We will schedule a follow-up appointment with the business development engineer here, or you will be scheduled to see your local doctor soon. Any specific instructions that apply to you will be given to you prior to discharge from the hospital. If you have any questions, call the Cardiology Department at Thursday through Thursday 8:00 a.m. to 4:30 p.m. * Attachments The following attachments cannot be sent through Care Everywhere. * Cardioversion: Post-op (Swazi) documented in this encounter Medications at Time [...] disease) Overview Note: ?? Heart catheterization in [facility] in 2007 with placement of a stent in an unspecified vessel ?? Repeat heart catheterization in 2008 with placement of stents to both the LAD and circumflex ?? Followup heart catheterization in 2008 showing stable results in both vessels ?? Recurrent chest discomfort in a somewhat atypical pattern beginning fall ?? Nuclear stress test at [facility] in [place], [place] May 02, 2013 during which he developed left shoulder and arm discomfort during submaximal exercise on the treadmill and after which he was converted to a pharmacologic test; nuclear imaging showed ejection fraction of 45% with a partially reversible inferior defect ?? Cath [facility] 05/13/2013: normal left main, mild diffuse disease throughout the LAD with an 80% mid stenosis representing a restenosis lesion, mild diffuse disease in the proximal obtuse marginal branch, and mild diffuse disease throughout the right coronary artery; status post 3.0 X 12 mm JON to 80%mid-LAD lesion (in-stent restenosis) ?? Heart catheterization [facility] January 06, 2014 showing normal left main, hazy 50% mid LAD stenosis, mild diffuse disease throughout the circumflex, and moderate diffuse disease in the proximal RCA with a totally occluded distal RCA with brisk flow via bridging collaterals; fractional flow reserveon the LAD 0.85 ?? Nuclear stress test [facility] August 2016 reportedly showing a small [...] 80 (documented on ICD interrogation 07/18/14) ?? [id number] score = 3 ?? Patient initially reluctant to be anticoagulated as recommended ??? Atrial pacemaker lead displacement Overview Note: New finding at office follow up 04/10/2014 Plan lead reposition/replacement ??? ICD (implantable cardioverter-defibrillator), dual, in situ Overview Note: New Atrial electrode: Guidant Dextrus Model# 4126-53 cm Serial# [id number] ?? Bipolar, steroid-tipped, active-fixation IS-1 lead ?? [...] at 10 V: No Old Ventricular electrode: [place] [employer] Model# 0292 Serial# [id number] ?? Bipolar, steroid-tipped, active-fixation DF-4 lead ?? [...] Atrial electrode: Guidant Dextrus Model# 4136 Serial# [id number] ?? Bipolar, steroid-tipped, active-fixation IS-1 lead ?? Access: Axillary vein ?? Location Removed 04/17/2014 ?? Implanted: 01/10/2014 Pulse generator: [employer] In[employer]a Model# E162 Serial# [id number] ?? DDDR ICD ?? Location: Subcutaneous The [...] past medical history. Pertinent Medications: No current [facility]-ordered facility-administered medications on file. Current Outpatient Medications Ordered in [facility] Medication Sig Dispense Refill ??? [id number] [...] Attending: Fantasma Matos MD 10/23/2020 Service Pager: [phone] documented in this encounter Miscellaneous Notes * Op Note - Fantasma Matos MD - 10/23/2020 11:35 AM EDT [facility] Operative Note Patient Name: Marquez Hendrix : [id number] MR#: [id number] Case Date: 10/23/2020 Surgeon: Surgeon(s) and Role: * Fantasma Matos MD - Primary * David Garner PA-C - Professor Of History Preoperative diagnosis: persistent atrial fibrillation Postoperative diagnosis: [...] interrogation confirmed conversion. DEVICE INTERROGATION: Device type: [place] [employer] Incepta ICD E 162 [id number] implanted 01/10/2014 Programmed: DDDR w/ mode switch [...] [place] [facility] Encounter Non-[place] [phone] Arrived documented as of this encounter Procedures Procedure Name Priority Date/Time Associated Diagnosis Comments EKG 12-LEAD STAT 10/23/2020 11:54 AM EDT PAF (paroxysmal atrial fibrillation) Cardioversion Elective Arrhythmia External (25130) 10/23/2020 11:25 AM EDT Persistent atrial fibrillation [...] (Bezet) 472 ms MUSE SYSTEM Calculated P [place] 49 degrees MUSE SYSTEM Calculated R [place] -51 degrees MUSE SYSTEM INTERPRETATION Sinus rhythm with 1st degree A-V block Left axis deviation Low voltage QRS Inferior infarct (cited on or before 23-OCT-2020) Cannot rule out Anterior infarct (cited on or before 06-NOV-2016) Abnormal ECG When compared with ECG of 23-OCT-2020 09:23, Sinus rhythm has replaced Atrial fibrillation Nonspecific T wave abnormality, improved in Lateral leads Confirmed by MD Davin, [place] ([id number]) on 10/23/2020 12:10:37 PM MUSE SYSTEM 10/23/2020 [...] Routine documented in this encounter Care Teams Manager Strategic Partnerships Relationship Specialty Start Date End Date Dewayne Carrington MD PCP - General 09/02/16 documented as of this encounter
--- OUTSIDE RECORDS SUMMARY | 2024-05-09 16:17 | XMS_ITS | Encounter Summary ---
Author Organization [facility] Address [facility] [place] [address] Care Team Providers Care Annealer Name Role Phone Dewayne Carrington MD Primary Care Provider [phone] Encounter Details Date Type Department Care Team (Late st Contact Info) Description 10/11/2020 Orders [place] [phone] David Garner, PA [facility] [place] [address] Persistent atrial fibrillation Social History Tobacco Use [...] AM EST Hospital Encounter [place] [address] Arrived documented as of this encounter Results * EKG 12 Lead (10/23/2020 9:23 AM EDT) Ventricular rate 61 BPM MUSE SYSTEM Atrial Rate 326 BPM MUSE SYSTEM QRS Duration 116 ms MUSE SYSTEM Q-T Interval 394 ms MUSE SYSTEM QTC Calculated (Bezet) 396 ms MUSE SYSTEM Calculated R [place] -58 degrees MUSE SYSTEM Calculated T [place] -45 degrees MUSE SYSTEM INTERPRETATION Demand pacemaker; interpretation is based on intrinsic rhythm Atrial fibrillation with premature ventricular or aberrantly conducted complexes Left axis deviation Inferior infarct , age undetermined Possible Anterior infarct (cited on or before 06-NOV-2016) Abnormal ECG When compared with ECG of 06-NOV-2016 13:03, Atrial fibrillation has replaced Sinus rhythm Confirmed by MD Davin, [place] ([id number]) on 10/23/2020 9:47:44 AM MUSE SYSTEM 10/23/2020 9:23 AM EDT 10/23/2020 9:47 AM EDT Irena Daly MD ECG ORDERABLES Performing Organization Address City/[facility] Co de Phone Number MUSE SYSTEM * Magnesium (10/23/2020 9:05 AM EDT) Magnesium 0.81 0.69 - 1.07 mmol/L [facility] Blood 10/23/2020 9:05 AM EDT 10/23/2020 9:09 AM EDT Narrative Resulting Agency Comment Spec In Lab Irena Daly MD CHEMISTRY ORDERABLES Performing Organization Address [facility] Co de Phone Number [facility] [place] [address] * (ABNORMAL) Basic Metabolic Panel (non-fasting) (10/23/2020 9:05 AM EDT) Glucose 263(H) 65 - 199 mg/dL [facility] Comment:Diabetes: >=200 mg/d L plus symptoms Blood Urea Nitrogen 25(H) 10 - 20 mg/dL [facility] Creatinine 0.90 0.80 - 1.50 mg/dL [facility] Sodium 141 135 - 145 mmol/L [facility] Potassium 4.5 3.5 - 5.0 mmol/L [facility] Comment: Please note: ??Patients with WBC >100,000 may have falsely elevated Potassium levels. ??For accurate Potassium quantification in these patients send serum separator tube (gold top) for subsequent determinations. ??Contact the Clinical Chemistry Laboratory if there are any questions. Chloride 104 98 - 107 mmol/L [facility] Carbon Dioxide 27 22 - 31 mmol/L [facility] Anion Gap 10 5 - 15 mmol/L [facility] Calcium 9.5 8.5 - 10.5 mg/dL [facility] Est Glomerular Filtration Rate 86 >=60 mL/min/1. 73 m?? [facility] Comment: This patient? s [...] In Lab Irena Daly MD CHEMISTRY ORDERABLES [facility] [place] [address] documented in this encounter Visit Diagnoses Diagnosis Persistent atrial fibrillation Atrial fibrillation documented in this encounter Care Teams Annealer Relationship Specialty Start Date End Date Dewayne Carrington MD PCP - General 09/02/16 documented as of this encounter
--- OUTSIDE RECORDS SUMMARY | 2024-05-09 16:17 | XMS_ITS | Encounter Summary ---
[place] [address] Care Team Providers Care Yarding And Folding Machine Operator Name Role Phone Dewayne Carrington MD Primary Care Provider [phone] Encounter Details Date Type Department Care Team (Late st Contact Info) Description 12/01/2020 Orders Only Cardiology at [address] [address] Social History Tobacco Use Types Packs/Day Years [...] AM EST Hospital Encounter [place] [address] Arrived documented as of this encounter Procedures Procedure Name Priority Date/Time Associated Diagnosis Comments CARDIAC DEVICE CHECK - REMOTE DEVICE INITIATED Routine 12/01/2020 12:42 AM EDT documented in this encounter Results * Cardiac device check - Remote Device Initiated (12/01/2020 12:42 AM EDT) Date Time Interrogation Session IDCO Type Interrogation Session Remote Device Initiated IDCO Clinic Name [facility] IDCO Battery Date Time of Measurements IDCO Battery Status Beginning of Service IDCO Battery Remaining Longevity 48 mo IDCO Battery Remaining Percentage 56 % IDCO Capacitor Last Charge Date Time IDCO Capacitor Charge Time 11.3 s IDCO Capacitor Charge Type Reformation IDCO Capacitor Last Charge Date Time [id number] IDCO Capacitor Charge Time 3.8 s IDCO [...] E162 IDCO Implantable Pulse Generator Serial Number [id number] IDCO Implantable Pulse Generator Salesperson [employer] [place] [employer] IDCO Implantable Pulse Generator Implant Date 20140110 IDCO Implantable Lead Model 4136 IDCO Implantable Lead Serial Number [id number] IDCO Implantable Lead Salesperson [employer] IDCO Implantable Lead Implant Date 20130421 IDCO Implantable Lead Polarity Type Bipolar Lead IDCO Implantable Lead Location Right Atrium IDCO Implantable Lead Model 0292 IDCO Implantable Lead Serial Number [id number] IDCO Implantable Lead Salesperson [employer] [place] [employer] IDCO Implantable Lead Implant Date IDCO [...] IDCO Lead Channel Pacing Threshold Measurement Method Hose Inspector And Patcher Manual IDCO Lead Channel Pacing Threshold Polarity [...] IDCO Lead Channel Pacing Threshold Measurement Method Hose Inspector And Patcher Manual IDCO Lead Channel Pacing Threshold Polarity [...] on filedocumented in this encounter Care Teams Yarding And Folding Machine Operator Relationship Specialty Start Date End Date Dewayne Carrington MD PCP - General 09/02/16 documented as of this encounter
--- OUTSIDE RECORDS SUMMARY | 2024-05-09 16:18 | XMS_ITS | Encounter Summary ---
Author Organization [facility] Address [facility] [place] [address] Care Team Providers Care Datastage Developer Name Role Phone Dewayne Carrington MD Primary Care Provider [phone] Encounter Details Date Type Department Care Team (Late st Contact Info) Description 03/16/2020 Notes Only Cardiology at [address] [phone] Edy Burns PA [facility] [place] [address] Social History Tobacco Use Types Packs/Day Years [...] Electronic Device Remote Monitoring Interpretation Marquez Hendrix [id number] Transmission Date: 03/16/2020 Device Type: ICD Generator: [employer] Incepta E162 SN: [id number] Implanted: 04/17/14 Battery Status: 5 years Charge Time: 11 sec Atrial lead status: Amplitude: 5.4 mV Impedance: 797 ? Threshold: 0.7 V @ 0.5 ms Right ventricular lead status: Amplitude: 12.8 mV Impedance: 691 ? Threshold: 0.6 V @ 0.5 ms Shock Impedance: 88 ? Atrial Pacin% Ventricular Pacin% Alerts: Mar 15, 2020 19:00 Atrial Arrhythmia [place] of at least 24.0 hours in a [...] functioning device Edy Burns PA-C 03/16/2020 Pager [phone] documented in this encounter Plan of Treatment Upcoming Encounters Date Type Department Care Team (Late st Contact Info) Description 06/15/2024 10:00 AM EST Hospital Encounter Non-[place] [address] Arrived documented as of this encounter Visit Diagnoses Not on filedocumented in this encounter Care Teams Datastage Developer Relationship Specialty Start Date End Date Dewayne Carrington MD PCP - General 09/02/16 documented as of this encounter
--- OUTSIDE RECORDS SUMMARY | 2024-05-09 16:18 | XMS_ITS | Encounter Summary ---
Author Organization [facility] Address [facility] [place] [place] [address] Care Team Providers Care Practicing Urologist Name Role Phone Dewayne Carrington MD Primary Care Provider [phone] Encounter Details Date Type Department Care Team ([facility] st Contact Info) Description 12/06/2019 Telephone Cardiology at [address] [phone] Chante Robertson RN Social History Tobacco Use [...] AM EST Hospital Encounter Non-[place] [address] Arrived documented as of this encounter Visit Diagnoses Not on filedocumented in this encounter Care Teams Practicing Urologist Relationship Specialty Start Date End Date Dewayne Carrington MD PCP - General 09/02/16 documented as of this encounter
--- OUTSIDE RECORDS SUMMARY | 2024-05-09 16:18 | XMS_ITS | Encounter Summary ---
[place] [address] Care Team Providers Care Clinical Nursing Intern Name Role Phone Dewayne Carrington MD Primary Care Provider [phone] Encounter Details Date Type Department Care Team (Late st Contact Info) Description 01/05/2020 Orders Only Cardiology at [address] [phone] Social History Tobacco Use Types Packs/Day Years [...] AM EST Hospital Encounter Non-[place] [address] Arrived documented as of this encounter Procedures Procedure Name Priority Date/Time Associated Diagnosis Comments CARDIAC DEVICE CHECK - REMOTE SCHEDULED Routine 01/05/2020 12:41 AM EDT documented in this encounter Results * Cardiac device check - Remote Scheduled (01/05/2020 12:41 AM EDT) Date Time Interrogation Session [id number] IDCO Type Interrogation Session Remote Scheduled IDCO Clinic Name [facility] IDCO Battery Date Time of Measurements [id number] IDCO Battery Status Beginning of Service IDCO Battery Remaining Longevity 66 mo IDCO Battery Remaining Percentage 77 % IDCO Capacitor Last Charge Date Time IDCO Capacitor Charge Time 11.0 s IDCO Capacitor Charge Type Reformation IDCO Capacitor Last Charge Date Time [id number] IDCO Capacitor Charge Time 3.8 s IDCO Capacitor Charge Energy 21 J IDCO Capacitor Charge Type Shock IDCO Episode Identifier [id number] IDCO Episode Date Time IDCO Episode Type Category Periodic EGM IDCO Episode Vendor Type Category APMRT IDCO Episode Detection And Therapy Details Presenting EGM IDCO Episode Identifier [id number] IDCO Episode Date Time IDCO Episode Type Category Other IDCO Episode Vendor Type Category XANDER IDCO Episode Detection Interval Ventricular 1,000 ms IDCO Episode Duration 58 s IDCO Episode Detection And Therapy Details IDCO Episode Identifier [id number] IDCO Episode Date Time IDCO Episode Type [...] Detection And Therapy Details IDCO Episode Identifier [id number] IDCO Episode Date Time IDCO Episode Type Category Other IDCO Episode Vendor Type Category XANDER IDCO Episode Detection Interval Ventricular 1,111 ms IDCO Episode Duration 59 s IDCO Episode Detection And Therapy Details IDCO Episode Identifier [id number] IDCO Episode Date Time IDCO Episode Type Category Other IDCO Episode Vendor Type Category XANDER IDCO Episode Detection Interval Ventricular 968 ms IDCO Episode Duration 60 s IDCO Episode Detection And Therapy Details IDCO Episode Identifier [id number] IDCO Episode Date Time IDCO Episode Type Category Other IDCO Episode Vendor Type Category XANDER IDCO Episode Detection Interval Ventricular 1,000 ms IDCO Episode Duration 60 s IDCO Episode Detection And Therapy Details RYQ IDCO Episode Identifier [id number] IDCO Episode Date Time IDCO Episode Type Category Other IDCO Episode Vendor Type Category XANDER IDCO Episode Detection Interval Ventricular 1,017 ms IDCO Episode Duration 59 s IDCO Episode Detection And Therapy Details RYQ IDCO Episode Identifier [id number] IDCO Episode Date Time IDCO Episode Type Category Other IDCO Episode Vendor Type Category XANDER IDCO Episode Detection Interval Ventricular 1,091 ms IDCO Episode Duration 60 s IDCO Episode Detection And Therapy Details Q IDCO Episode Identifier [id number] IDCO Episode Date Time IDCO Episode Type Category Other IDCO Episode Vendor Type Category XANDER IDCO Episode Detection Interval Ventricular 1,111 ms IDCO Episode Duration 59 s IDCO Episode Detection And Therapy Details Q IDCO Episode Identifier [id number] IDCO Episode Date Time IDCO Episode Type [...] Episode Identifier [id number] IDCO Episode Date Time [id number] IDCO Episode Type Category VT IDCO Episode [...] E162 IDCO Implantable Pulse Generator Serial Number [id number] IDCO Implantable Pulse Generator Twisting Operator [place] [employer] IDCO Implantable Pulse Generator Implant Date 20140110 IDCO Implantable Lead Model 4136 IDCO Implantable Lead Serial Number [id number] IDCO Implantable Lead Twisting Operator Guiddelio IDCO Implantable Lead Implant Date 20130421 IDCO Implantable Lead Polarity Type Bipolar Lead IDCO Implantable Lead Location Right Atrium IDCO Implantable Lead Model 0292 IDCO Implantable Lead Serial Number [id number] IDCO Implantable Lead Twisting Operator [place] [employer] IDCO Implantable Lead Implant Date IDCO [...] IDCO Lead Channel Pacing Threshold Measurement Method Artificial Snow Making Machine Operator Manual IDCO Lead Channel Pacing [...] IDCO Lead Channel Pacing Threshold Measurement Method Artificial Snow Making Machine Operator Manual IDCO Lead Channel Pacing [...] on filedocumented in this encounter Care Teams Clinical Nursing Intern Relationship Specialty Start Date End Date Dewayne Carrington MD PCP - General 09/02/16 documented as of this encounter
--- OUTSIDE RECORDS SUMMARY | 2024-05-09 16:18 | XMS_ITS | Encounter Summary ---
[place] [address] Care Team Providers Care Automated Weaver Name Role Phone Dewayne Carrington MD Primary Care Provider [phone] Encounter Details Date Type Department Care Team (Late st Contact Info) Description 04/16/2020 Orders Only Cardiology at [address] [phone] Social History Tobacco Use Types Packs/Day Years [...] AM EST Hospital Encounter [place] [address] Arrived documented as of this encounter Procedures Procedure Name Priority Date/Time Associated Diagnosis Comments CARDIAC DEVICE CHECK - REMOTE DEVICE INITIATED Routine 04/16/2020 12:41 AM EST documented in this encounter Results * Cardiac device check - Remote Device Initiated (04/16/2020 12:41 AM EST) Date Time Interrogation Session [id number] IDCO Type Interrogation Session Remote Device Initiated IDCO Clinic Name [facility] IDCO Battery Date Time of Measurements [id number] IDCO Battery Status Beginning of Service IDCO Battery Remaining Longevity 42 mo IDCO Battery Remaining Percentage 51 % IDCO Capacitor Last Charge Date Time [id number] IDCO Capacitor Charge Time 11.1 s IDCO Capacitor Charge Type Reformation IDCO Capacitor Last Charge Date Time [id number] IDCO Capacitor Charge Time 3.8 s IDCO Capacitor Charge Energy 21 J IDCO Capacitor Charge Type Shock IDCO Episode Identifier [id number] IDCO Episode Date Time [id number] IDCO Episode Type Category Periodic EGM IDCO Episode Vendor Type Category APMRT IDCO Episode Detection And Therapy Details Presenting EGM IDCO Episode Identifier [id number] IDCO Episode Date Time [id number] IDCO Episode Type Category VT IDCO Episode Vendor Type Category NSVT IDCO Episode Type Induced Flag NO IDCO Episode Detection Interval Ventricular 395 ms IDCO Episode Duration 8 s IDCO Episode Detection And Therapy Details NonSustV IDCO Episode Identifier IDCO Episode Date Time [id number] IDCO Episode Type Category VT IDCO Episode Vendor Type Category NSVT IDCO Episode Type Induced Flag NO IDCO Episode Detection Interval Ventricular 395 ms IDCO Episode Duration 9 s IDCO Episode Detection And Therapy Details NonSustV IDCO Episode Identifier IDCO Episode Date Time [id number] IDCO Episode Type Category VT IDCO Episode Vendor Type Category NSVT IDCO Episode Type Induced Flag NO IDCO Episode Detection Interval Ventricular 380 ms IDCO Episode Duration 8 s IDCO Episode Detection And Therapy Details NonSustV IDCO Episode Identifier IDCO Episode Date Time [id number] IDCO Episode Type Category VT IDCO Episode Vendor Type Category NSVT IDCO Episode Type Induced Flag NO IDCO Episode Detection Interval Ventricular 385 ms IDCO Episode Duration 8 s IDCO Episode Detection And Therapy Details NonSustV IDCO Episode Identifier IDCO Episode Date Time [id number] IDCO Episode Type Category VT IDCO Episode Vendor Type Category NSVT IDCO Episode Type Induced Flag NO IDCO Episode Detection Interval Ventricular 382 ms IDCO Episode Duration 7 s IDCO Episode Detection And Therapy Details NonSustV IDCO Episode Identifier IDCO Episode Date Time [id number] IDCO Episode Type Category VT IDCO Episode Vendor Type Category NSVT IDCO Episode Type Induced Flag NO IDCO Episode Detection Interval Ventricular 380 ms IDCO Episode Duration 7 s IDCO Episode Detection And Therapy Details NonSustV IDCO Episode Identifier [id number] IDCO Episode Date Time [id number] IDCO Episode Type Category VT IDCO Episode Vendor Type Category NSVT IDCO Episode Type Induced Flag NO IDCO Episode Detection Interval Ventricular 387 ms IDCO Episode Duration 8 s IDCO Episode Detection And Therapy Details NonSustV IDCO Episode Identifier [id number] IDCO Episode Date Time [id number] IDCO Episode Type Category VT IDCO Episode Vendor Type Category NSVT IDCO Episode Type Induced Flag NO IDCO Episode Detection Interval Ventricular 392 ms IDCO Episode Duration 8 s IDCO Episode Detection And Therapy Details NonSustV IDCO Episode Identifier [id number] IDCO Episode Date Time [id number] IDCO Episode Type Category VT IDCO Episode Vendor Type Category NSVT IDCO Episode Type Induced Flag NO IDCO Episode Detection Interval Ventricular 385 ms IDCO Episode Duration 8 s IDCO Episode Detection And Therapy Details NonSustV IDCO Episode Identifier [id number] IDCO Episode Date Time [id number] IDCO Episode Type Category VT IDCO Episode [...] E162 IDCO Implantable Pulse Generator Serial Number [id number] IDCO Implantable Pulse Generator Wireless Development Manager [employer] IDCO Implantable Pulse Generator Implant Date 20140110 IDCO Implantable Lead Model 4136 IDCO Implantable Lead Serial Number [id number] IDCO Implantable Lead Wireless Development Manager Guidant IDCO Implantable Lead Implant Date 20130421 IDCO Implantable Lead Polarity Type Bipolar Lead IDCO Implantable Lead Location Right Atrium IDCO Implantable Lead Model 0292 IDCO Implantable Lead Serial Number [id number] IDCO Implantable Lead Wireless Development Manager [employer] IDCO Implantable Lead Implant Date IDCO [...] Lead Channel Pacing Threshold Measurement Method Senior Data Integration Developer Manual IDCO Lead Channel Pacing Threshold [...] Lead Channel Pacing Threshold Measurement Method Senior Data Integration Developer Manual IDCO Lead Channel Pacing Threshold [...] on filedocumented in this encounter Care Teams Automated Weaver Relationship Specialty Start Date End Date Dewayne Carrington MD PCP - General 09/02/16 documented as of this encounter
--- OUTSIDE RECORDS SUMMARY | 2024-05-09 16:18 | XMS_ITS | Encounter Summary ---
Author Organization [facility] Address [facility] [place] [address] Care Team Providers Care Painter Set Name Role Phone Dewayne Carrington MD Primary Care Provider [phone] Encounter Details Date Type Department Care Team ([facility] st Contact Info) Description 12/06/2019 Telephone Cardiology at [address] [phone] Chante Robertson RN Social History Tobacco Use [...] AM EST Hospital Encounter [place] [address] Arrived documented as of this encounter Visit Diagnoses Not on filedocumented in this encounter Care Teams Painter Set Relationship Specialty Start Date End Date Dewayne Carrington MD PCP - General 09/02/16 documented as of this encounter
--- OUTSIDE RECORDS SUMMARY | 2024-05-09 16:18 | XMS_ITS | Encounter Summary ---
[place] [address] Care Team Providers Care Research Software Engineer Name Role Phone Dewayne Carrington MD Primary Care Provider [phone] Encounter Details Date Type Department Care Team (Late st Contact Info) Description 09/12/2020 Orders Only Cardiology at [address] [phone] Social History Tobacco Use Types Packs/Day Years [...] AM EST Hospital Encounter Non-[place]vasive [place] [address] Arrived documented as of this encounter Procedures Procedure Name Priority Date/Time Associated Diagnosis Comments CARDIAC DEVICE CHECK - REMOTE DEVICE INITIATED Routine 09/12/2020 12:42 AM EDT documented in this encounter Results * Cardiac device check - Remote Device Initiated (09/12/2020 12:42 AM EDT) Date Time Interrogation Session [id number] IDCO Type Interrogation Session Remote Device Initiated IDCO Clinic Name [facility] IDCO Battery Date Time of Measurements [id number] IDCO Battery Status Beginning of Service IDCO Battery Remaining Longevity 42 mo IDCO Battery Remaining Percentage 46 % IDCO Capacitor Last Charge Date Time [id number] IDCO Capacitor Charge Time 11.2 s IDCO Capacitor Charge Type Reformation IDCO Capacitor Last Charge Date Time [id number] IDCO Capacitor Charge Time 3.8 s IDCO [...] Episode Identifier [id number] IDCO Episode Date Time [id number] IDCO Episode Type Category AT/AF IDCO Episode [...] E162 IDCO Implantable Pulse Generator Serial Number [id number] IDCO Implantable Pulse Generator Atg Architect [place] [employer] IDCO Implantable Pulse Generator Implant Date 20140110 IDCO Implantable Lead Model 4136 IDCO Implantable Lead Serial Number [id number] IDCO Implantable Lead Atg Architect Guidant IDCO Implantable Lead Implant Date 20130421 IDCO Implantable Lead Polarity Type Bipolar Lead IDCO Implantable Lead Location Right Atrium IDCO Implantable Lead Model 0292 IDCO Implantable Lead Serial Number [id number] IDCO Implantable Lead Atg Architect [place] [employer] IDCO Implantable Lead Implant Date [...] IDCO Lead Channel Pacing Threshold Measurement Method Technical Mgr Manual IDCO Lead Channel Pacing Threshold Polarity [...] IDCO Lead Channel Pacing Threshold Measurement Method Technical Mgr Manual IDCO Lead Channel Pacing Threshold Polarity [...] on filedocumented in this encounter Care Teams Research Software Engineer Relationship Specialty Start Date End Date Dewayne Carrington MD PCP - General 09/02/16 documented as of this encounter
--- OUTSIDE RECORDS SUMMARY | 2024-05-09 16:18 | XMS_ITS | Encounter Summary ---
[place] [address] Care Team Providers Care Wrapper Stripper Name Role Phone Dewayne Carrington MD Primary Care Provider [phone] Encounter Details Date Type Department Care Team (Late st Contact Info) Description 2020 Orders Only Cardiology at [address] [phone] Social History Tobacco Use Types Packs/Day Years [...] AM EST Hospital Encounter Non[place] [address] Arrived documented as of this encounter Procedures Procedure Name Priority Date/Time Associated Diagnosis Comments CARDIAC DEVICE CHECK - REMOTE DEVICE INITIATED Routine 2020 12:42 AM EST documented in this encounter Results * Cardiac device check - Remote Device Initiated (2020 12:42 AM EST) Date Time Interrogation Session [id number] IDCO Type Interrogation Session Remote Device Initiated [facility] IDCO Battery Date [...] E162 IDCO Implantable Pulse Generator Serial Number [id number] IDCO Implantable Pulse Generator Magnet Placer [place] [employer] IDCO Implantable Pulse Generator Implant Date 20140110 IDCO Implantable Lead Model 4136 IDCO Implantable Lead Serial Number [id number] IDCO Implantable Lead Magnet Placer Guidant IDCO Implantable Lead Implant Date 20130421 IDCO Implantable Lead Polarity Type Bipolar Lead IDCO Implantable Lead Location Right Atrium IDCO Implantable Lead Model 0292 IDCO Implantable Lead Serial Number [id number] IDCO Implantable Lead Magnet Placer [place] [employer] IDCO Implantable Lead Implant Date IDCO [...] IDCO Lead Channel Pacing Threshold Measurement Method Feather Drying Machine Operator Manual IDCO Lead Channel Pacing [...] IDCO Lead Channel Pacing Threshold Measurement Method Feather Drying Machine Operator Manual IDCO Lead Channel Pacing [...] on filedocumented in this encounter Care Teams Wrapper Stripper Relationship Specialty Start Date End Date Dewayne Carrington MD PCP - General 09/02/16 documented as of this encounter
--- OUTSIDE RECORDS SUMMARY | 2024-05-09 16:18 | XMS_ITS | Encounter Summary ---
[place] [address] Care Team Providers Care Field Superintendent Name Role Phone Dewayne Carrington MD Primary Care Provider [phone] Encounter Details Date Type Department Care Team (Late st Contact Info) Description 12/06/2019 Orders Only Cardiology at [address] [address] Social History Tobacco Use Types Packs/Day Years [...] AM EST Hospital Encounter [place] [address] Arrived documented as of this encounter Procedures Procedure Name Priority Date/Time Associated Diagnosis Comments CARDIAC DEVICE CHECK - REMOTE PATIENT INITIATED Routine 12/06/2019 12:55 PM EDT documented in this encounter Results * Cardiac device check - Remote Patient Initiated (12/06/2019 12:55 PM EDT) Date Time Interrogation Session [id number] IDCO Type Interrogation Session Remote Patient Initiated IDCO Clinic Name [facility] IDCO Battery Date Time of Measurements [id number] IDCO Battery Status Beginning of Service IDCO [...] E162 IDCO Implantable Pulse Generator Serial Number [id number] IDCO Implantable Pulse Generator Data Technical Lead [place] Scientific IDCO Implantable Pulse Generator Implant Date 20140110 IDCO Implantable Lead Model 4136 IDCO Implantable Lead Serial Number [id number] IDCO Implantable Lead Data Technical Lead Guidant IDCO Implantable Lead Implant Date 20130421 IDCO Implantable Lead Polarity Type Bipolar Lead IDCO Implantable Lead Location Right Atrium IDCO Implantable Lead Model 0292 IDCO Implantable Lead Serial Number [id number] IDCO Implantable Lead Data Technical Lead [place] Scientific IDCO Implantable Lead Implant Date IDCO [...] IDCO Lead Channel Pacing Threshold Measurement Method Sheet Combining Operator Manual IDCO Lead Channel Pacing Threshold [...] IDCO Lead Channel Pacing Threshold Measurement Method Sheet Combining Operator Manual IDCO Lead Channel Pacing Threshold [...] on filedocumented in this encounter Care Teams Field Superintendent Relationship Specialty Start Date End Date Dewayne Carrington MD PCP - General 09/02/16 documented as of this encounter
--- OUTSIDE RECORDS SUMMARY | 2024-05-09 16:18 | XMS_ITS | Encounter Summary ---
Author Organization [facility] Address [facility] [place] [address] Care Team Providers Care Service Order Dispatcher Chief Name Role Phone Dewayne Carrington MD Primary Care Provider [phone] Encounter Details Date Type Department Care Team (Late st Contact Info) Description 08/21/2020 Notes Only Cardiology at [address] [phone] Edy Torres PA [facility] [place] [address] Social History Tobacco Use Types Packs/Day Years [...] Remote Monitoring Interpretation Transmission Date: 08/21/2020 Device Green Meat Packer and Type: [place] [employer] dual lead ICD Battery Status: [...] AM EST Hospital Encounter Non-Invasive [place] [address] Arrived documented as of this encounter Visit Diagnoses Not on filedocumented in this encounter Care Teams Service Order Dispatcher Chief Relationship Specialty Start Date End Date Dewayne Carrington MD PCP - General 09/02/16 documented as of this encounter
--- OUTSIDE RECORDS SUMMARY | 2024-05-09 16:18 | XMS_ITS | Encounter Summary ---
[place] [address] Care Team Providers Care Plugger Worker Name Role Phone Dewayne Carrington MD Primary Care Provider [phone] Encounter Details Date Type Department Care Team (Late st Contact Info) Description 08/21/2020 Orders Only Cardiology at [address] [address] Social History Tobacco Use Types Packs/Day Years [...] AM EST Hospital Encounter Non[place] [address] Arrived documented as of this encounter Procedures Procedure Name Priority Date/Time Associated Diagnosis Comments CARDIAC DEVICE CHECK - REMOTE DEVICE INITIATED Routine 08/21/2020 12:42 AM EDT documented in this encounter Results * Cardiac device check - Remote Device Initiated (08/21/2020 12:42 AM EDT) Date Time Interrogation Session [id number] IDCO Type Interrogation Session Remote Device Initiated IDCO Clinic Name [facility] IDCO Battery Date Time of Measurements [id number] IDCO Battery Status Beginning of Service IDCO Battery Remaining Longevity 42 mo IDCO Battery Remaining Percentage 47 % IDCO Capacitor Last Charge Date Time [id number] IDCO Capacitor Charge Time 11.2 s IDCO [...] Episode Identifier [id number] IDCO Episode Date Time [id number] IDCO Episode Type Category VT IDCO Episode [...] IDCO Episode Statistic Recent Date Time End [id number] IDCO Episode Statistic Type Category VT IDCO [...] E162 IDCO Implantable Pulse Generator Serial Number [id number] IDCO Implantable Pulse Generator Customer Advisor Specialist [place] [employer] IDCO Implantable Pulse Generator Implant Date 20140110 IDCO Implantable Lead Model 4136 IDCO Implantable Lead Serial Number [id number] IDCO Implantable Lead Customer Advisor Specialist Guidant IDCO Implantable Lead Implant Date 20130421 IDCO Implantable Lead Polarity Type Bipolar Lead IDCO Implantable Lead Location Right Atrium IDCO Implantable Lead Model 0292 IDCO Implantable Lead Serial Number [id number] IDCO Implantable Lead Customer Advisor Specialist [place] [employer] IDCO Implantable Lead Implant Date IDCO [...] IDCO Lead Channel Pacing Threshold Measurement Method Nuclear Equipment Research Engineer Manual IDCO Lead Channel Pacing Threshold [...] IDCO Lead Channel Pacing Threshold Measurement Method Nuclear Equipment Research Engineer Manual IDCO Lead Channel Pacing Threshold [...] on filedocumented in this encounter Care Teams Plugger Worker Relationship Specialty Start Date End Date Dewayne Carrington MD PCP - General 09/02/16 documented as of this encounter
--- OUTSIDE RECORDS SUMMARY | 2024-05-09 16:18 | XMS_ITS | Encounter Summary ---
Author Organization [facility] Address [facility] [place] [address] Care Team Providers Care Public Relations Intern Name Role Phone Dewayne Carrington MD Primary Care Provider [phone] Encounter Details Date Type Department Care Team (Latest Contact Info) Description 01/05/2020 10:49 AM EDT - 01/05/2020 11:59 PM EDT Hospital Encounter Non-[place] [address] Irena Daly MD [facility] [place] [address] Ventricular tachycardia Discharge Disposition: Home Social History [...] AM EST Hospital Encounter Non-[place] [address] Arrived documented as of this encounter Procedures [...] pdf document Date of transmission: 01/05/2020 Device sports management internship: [facility] [place], [place] Device type: DC ICD Presenting rhythm: asvs AP 0% ACCOUNTING CONSULTANT 4% Battery: 5.5 years Episodes: Many NSVT [...] tachycardia documented in this encounter Care Teams Public Relations Intern Relationship Specialty Start Date End Date Dewayne Carrington MD PCP - General 09/02/16 documented as of this encounter
--- OUTSIDE RECORDS SUMMARY | 2024-05-09 16:18 | XMS_ITS | Encounter Summary ---
[place] [address] Care Team Providers Care Nursing Assistants Teacher Name Role Phone Dewayne Carrington MD Primary Care Provider [phone] Encounter Details Date Type Department Care Team (Late st Contact Info) Description 08/23/2020 Orders Only Cardiology at [address] [address] Social History Tobacco Use Types Packs/Day Years [...] Hospital Encounter Non-[place]vasive [place] [address] Arrived documented as of this encounter Procedures Procedure Name Priority Date/Time Associated Diagnosis Comments CARDIAC DEVICE CHECK - REMOTE SCHEDULED Routine 08/23/2020 12:41 AM EDT documented in this encounter Results * Cardiac device check - Remote Scheduled (08/23/2020 12:41 AM EDT) Date Time Interrogation Session [id number] IDCO Type Interrogation Session Remote Scheduled [facility] IDCO Battery Date Time of Measurements [id number] IDCO Battery Status Beginning of Service IDCO Battery Remaining Longevity 42 mo IDCO Battery Remaining Percentage 46 % IDCO Capacitor Last Charge Date Time [id number] IDCO Capacitor Charge Time 11.2 s IDCO Capacitor Charge Type Reformation IDCO Capacitor Last Charge Date Time [id number] IDCO Capacitor Charge Time 3.8 s IDCO [...] E162 IDCO Implantable Pulse Generator Serial Number [id number] IDCO Implantable Pulse Generator Wigs Salesperson [place] [employer] IDCO Implantable Pulse Generator Implant Date 20140110 IDCO Implantable Lead Model 4136 IDCO Implantable Lead Serial Number [id number] IDCO Implantable Lead Wigs Salesperson Guidant IDCO Implantable Lead Implant Date 20130421 IDCO Implantable Lead Polarity Type Bipolar Lead IDCO Implantable Lead Location Right Atrium IDCO Implantable Lead Model 0292 IDCO Implantable Lead Serial Number [id number] IDCO Implantable Lead Wigs Salesperson [place] [employer] IDCO Implantable Lead Implant Date IDCO [...] IDCO Lead Channel Pacing Threshold Measurement Method Concrete Pouring Supervisor Manual IDCO Lead Channel Pacing Threshold [...] IDCO Lead Channel Pacing Threshold Measurement Method Concrete Pouring Supervisor Manual IDCO Lead Channel Pacing Threshold [...] on filedocumented in this encounter Care Teams Nursing Assistants Teacher Relationship Specialty Start Date End Date Dewayne Carrington MD PCP - General 09/02/16 documented as of this encounter
--- OUTSIDE RECORDS SUMMARY | 2024-05-09 16:18 | XMS_ITS | Encounter Summary ---
[place] [address] Care Team Providers Care Slat Basket Maker Machine Name Role Phone Dewayne Carrington MD Primary Care Provider [phone] Encounter Details Date Type Department Care Team (Late st Contact Info) Description 03/16/2020 Orders Only Cardiology at [address] [phone] Social History Tobacco Use Types Packs/Day Years [...] AM EST Hospital Encounter Non-[place] [address] Arrived documented as of this encounter Procedures Procedure Name Priority Date/Time Associated Diagnosis Comments CARDIAC DEVICE CHECK - REMOTE DEVICE INITIATED Routine 03/16/2020 12:42 AM EST documented in this encounter Results * Cardiac device check - Remote Device Initiated (03/16/2020 12:42 AM EST) Date Time Interrogation Session [id number] IDCO Type Interrogation Session Remote Device Initiated IDCO Clinic Name [facility] IDCO Battery Date Time of Measurements [id number] IDCO Battery Status Beginning of Service IDCO Battery Remaining Longevity 60 mo IDCO Battery Remaining Percentage 70 % IDCO Capacitor Last Charge Date Time IDCO Capacitor Charge Time 11.0 s IDCO Capacitor Charge Type Reformation IDCO Capacitor Last Charge Date Time [id number] IDCO Capacitor Charge Time 3.8 s IDCO [...] And Therapy Details ATR IDCO Episode Identifier [id number] IDCO Episode Date Time [id number] IDCO Episode Type Category Other IDCO Episode Vendor Type Category XANDER IDCO Episode Detection Interval Ventricular 923 ms IDCO Episode Duration 45 s IDCO Episode Detection And Therapy Details IDCO Episode Identifier 73 IDCO Episode Date Time [id number] IDCO Episode Type Category Other IDCO Episode Vendor Type Category XANDER IDCO Episode Detection Interval Ventricular 909 ms IDCO Episode Duration 54 s IDCO Episode Detection And Therapy Details IDCO Episode Identifier [id number] IDCO Episode Date Time [id number] IDCO Episode Type Category Other IDCO Episode Vendor Type Category XANDER IDCO Episode Detection Interval Ventricular 909 ms IDCO Episode Duration 53 s IDCO Episode Detection And Therapy Details IDCO Episode Identifier -[id number] IDCO Episode Date Time [id number] IDCO Episode Type Category Other IDCO Episode Vendor Type Category XANDER IDCO Episode Detection Interval Ventricular 923 ms IDCO Episode Duration 54 s IDCO Episode Detection And Therapy Details IDCO Episode Identifier [id number] IDCO Episode Date Time IDCO Episode Type Category Other IDCO Episode Vendor Type Category XANDER IDCO Episode Detection Interval Ventricular 909 ms IDCO Episode Duration 52 s IDCO Episode Detection And Therapy Details IDCO Episode Identifier [id number] IDCO Episode Date Time [id number] IDCO Episode Type Category Other IDCO Episode Vendor Type Category XANDER IDCO Episode Detection Interval Ventricular 896 ms IDCO Episode Duration 53 s IDCO Episode Detection And Therapy Details [facility] IDCO Episode Identifier [id number] IDCO Episode Date Time [id number] IDCO Episode Type Category Other IDCO Episode Vendor Type Category XANDER IDCO Episode Detection Interval Ventricular 909 ms IDCO Episode Duration 54 s IDCO Episode Detection And Therapy Details [facility] IDCO Episode Identifier [id number] IDCO Episode Date Time [id number] IDCO Episode Type Category Other IDCO Episode Vendor Type Category XANDER IDCO Episode Detection Interval Ventricular 968 ms IDCO Episode Duration 57 s IDCO Episode Detection And Therapy Details [facility] IDCO Episode Identifier [id number] IDCO Episode Date Time [id number] IDCO Episode Type Category Other IDCO Episode Vendor Type Category XANDER IDCO Episode Detection Interval Ventricular 923 ms IDCO Episode Duration 55 s IDCO Episode Detection And Therapy Details [facility] IDCO Episode Identifier [id number] IDCO Episode Date Time [id number] IDCO Episode Type Category Other IDCO Episode Vendor Type Category XANDER IDCO Episode Detection Interval Ventricular 923 ms IDCO Episode Duration 54 s IDCO Episode Detection And Therapy Details [facility] IDCO Episode Identifier [id number] IDCO Episode Date Time [id number] IDCO Episode Type Category AT/AF IDCO Episode Vendor Type Category ATR IDCO Episode Detection Interval Atrial 299 ms IDCO Episode Duration 21,668 s IDCO Episode Detection And Therapy Details ATR IDCO Episode Identifier [id number] IDCO Episode Date Time [id number] IDCO Episode Type Category AT/AF IDCO Episode Vendor Type Category ATR IDCO Episode Detection Interval Atrial 267 ms IDCO Episode Duration 12 s IDCO Episode Detection And Therapy Details ATR IDCO Episode Identifier V IDCO Episode Date Time [id number] IDCO Episode Type Category VT IDCO Episode Vendor Type Category NSVT IDCO Episode Type Induced Flag NO IDCO Episode Detection Interval Ventricular 382 ms IDCO Episode Duration 6 s IDCO Episode Detection And Therapy Details NonSustV IDCO Episode Identifier V IDCO Episode Date Time [id number] IDCO Episode Type Category VT IDCO Episode Vendor Type Category NSVT IDCO Episode Type Induced Flag NO IDCO Episode Detection Interval Ventricular 397 ms IDCO Episode Duration 6 s IDCO Episode Detection And Therapy Details NonSustV IDCO Episode Identifier IDCO Episode Date Time [id number] IDCO Episode Type Category VT IDCO Episode Vendor Type Category NSVT IDCO Episode Type Induced Flag NO IDCO Episode Detection Interval Ventricular 375 ms IDCO Episode Duration 6 s IDCO Episode Detection And Therapy Details NonSustV IDCO Episode Identifier IDCO Episode Date Time [id number] IDCO Episode Type Category VT IDCO Episode Vendor Type Category NSVT IDCO Episode Type Induced Flag NO IDCO Episode Detection Interval Ventricular 375 ms IDCO Episode Duration 6 s IDCO Episode Detection And Therapy Details NonSustV IDCO Episode Identifier IDCO Episode Date Time [id number] IDCO Episode Type Category VT IDCO Episode Vendor Type Category NSVT IDCO Episode Type Induced Flag NO IDCO Episode Detection Interval Ventricular 375 ms IDCO Episode Duration 7 s IDCO Episode Detection And Therapy Details NonSustV IDCO Episode Identifier IDCO Episode Date Time [id number] IDCO Episode Type Category VT IDCO Episode Vendor Type Category NSVT IDCO Episode Type Induced Flag NO IDCO Episode Detection Interval Ventricular 377 ms IDCO Episode Duration 5 s IDCO Episode Detection And Therapy Details NonSustV IDCO Episode Identifier IDCO Episode Date Time [id number] IDCO Episode Type Category VT IDCO Episode Vendor Type Category NSVT IDCO Episode Type Induced Flag NO IDCO Episode Detection Interval Ventricular 429 ms IDCO Episode Duration 6 s IDCO Episode Detection And Therapy Details NonSustV IDCO Episode Identifier IDCO Episode Date Time [id number] IDCO Episode Type Category VT IDCO Episode Vendor Type Category NSVT IDCO Episode Type Induced Flag NO IDCO Episode Detection Interval Ventricular 385 ms IDCO Episode Duration 6 s IDCO Episode Detection And Therapy Details NonSustV IDCO Episode Identifier IDCO Episode Date Time [id number] IDCO Episode Type Category VT IDCO Episode Vendor Type Category NSVT IDCO Episode Type Induced Flag NO IDCO Episode Detection Interval Ventricular 382 ms IDCO Episode Duration 6 s IDCO Episode Detection And Therapy Details NonSustV IDCO Episode Identifier IDCO Episode Date Time [id number] IDCO Episode Type Category VT IDCO Episode Vendor Type Category NSVT IDCO Episode Type Induced Flag NO IDCO Episode Detection Interval Ventricular 368 ms IDCO Episode Duration 5 s IDCO Episode Detection And Therapy Details NonSustV IDCO Episode Identifier [id number] IDCO Episode Date Time [id number] IDCO Episode Type Category AT/AF IDCO Episode [...] E162 IDCO Implantable Pulse Generator Serial Number [id number] IDCO Implantable Pulse Generator Branding Machine Tender [place] [employer] IDCO Implantable Pulse Generator Implant Date 20140110 IDCO Implantable Lead Model 4136 IDCO Implantable Lead Serial Number [id number] IDCO Implantable Lead Branding Machine Tender Guidant IDCO Implantable Lead Implant Date 20130421 IDCO Implantable Lead Polarity Type Bipolar Lead IDCO Implantable Lead Location Right Atrium IDCO Implantable Lead Model 0292 IDCO Implantable Lead Serial Number [id number] IDCO Implantable Lead Branding Machine Tender [place] [employer] IDCO Implantable Lead Implant Date IDCO [...] IDCO Lead Channel Pacing Threshold Measurement Method Conduit Reamer Operator Manual IDCO Lead Channel Pacing Threshold [...] IDCO Lead Channel Pacing Threshold Measurement Method Conduit Reamer Operator Manual IDCO Lead Channel Pacing Threshold [...] on filedocumented in this encounter Care Teams Slat Basket Maker Machine Relationship Specialty Start Date End Date Dewayne Carrington MD PCP - General 09/02/16 documented as of this encounter
--- OUTSIDE RECORDS SUMMARY | 2024-05-09 16:18 | XMS_ITS | Encounter Summary ---
Author Organization [facility] Address [facility] [place] [address] Care Team Providers Care Print Production Coordinator Name Role Phone Dewayne Carrington MD Primary Care Provider [phone] Encounter Details Date Type Department Care Team (Latest Contact Info) Description 08/23/2020 11:29 AM EDT - 08/23/2020 11:59 PM EDT Hospital Encounter Non-Invasive [place] [address] Ta Negron MD [facility] [place] [address] V-tach Discharge Disposition: Home Social History Tobacco [...] AM EST Hospital Encounter Non-Invasive [place] [address] Arrived documented as of this encounter Procedures Procedure Name Priority Date/Time Associated Diagnosis Comments ICD INTERROGATION 3 MONTH Routine 08/23/2020 11:31 AM EDT V-tach documented in this encounter Results * ICD INTERROGATION 3 MONTH (08/23/2020 11:31 AM EDT) Anatomical Region Laterality Modality Other Narrative 08/23/2020 11:45 AM EDT Cardiac Device Remote Monitoring Report Summary [employer] Latitude 08/23/20 Device: ICD Model: INCEPTA Battery: [...] tachycardia documented in this encounter Care Teams Print Production Coordinator Relationship Specialty Start Date End Date Dewayne Carrington MD PCP - General 09/02/16 documented as of this encounter
--- OUTSIDE RECORDS SUMMARY | 2024-05-09 16:18 | XMS_ITS | Encounter Summary ---
[place] [address] Care Team Providers Care Broommaker Name Role Phone Dewayne Carrington MD Primary Care Provider [phone] Encounter Details Date Type Department Care Team (Late st Contact Info) Description 02/07/2020 Orders Only Cardiology at [address] [phone] Social History Tobacco Use Types Packs/Day Years [...] AM EST Hospital Encounter Non-Invasive [place] [address] Arrived documented as of this encounter Procedures Procedure Name Priority Date/Time Associated Diagnosis Comments CARDIAC DEVICE CHECK - REMOTE DEVICE INITIATED Routine 02/07/2020 12:41 AM EDT documented in this encounter Results * Cardiac device check - Remote Device Initiated (02/07/2020 12:41 AM EDT) Date Time Interrogation Session [id number] IDCO Type Interrogation Session Remote Device Initiated IDCO Clinic Name [facility] IDCO Battery Date Time of Measurements [id number] IDCO Battery Status Beginning of Service IDCO Battery Remaining Longevity 54 mo IDCO Battery Remaining Percentage 67 % IDCO Capacitor Last Charge Date Time [id number] IDCO Capacitor Charge Time 11.0 s IDCO Capacitor Charge Type Reformation IDCO Capacitor Last Charge Date Time [id number] IDCO Capacitor Charge Time 3.8 s IDCO Capacitor Charge Energy 21 J IDCO Capacitor Charge Type Shock IDCO Episode Identifier APM-47 IDCO Episode Date Time [id number] IDCO Episode Type Category Periodic EGM IDCO Episode Vendor Type Category APMRT IDCO Episode Detection And Therapy Details Presenting EGM IDCO Episode Identifier ATR-429 IDCO Episode Date Time IDCO Episode Type Category AT/AF IDCO Episode Vendor Type Category ATR IDCO Episode Detection Interval Atrial 271 ms IDCO Episode Detection And Therapy Details ATR IDCO Episode Identifier ATR-428 IDCO Episode Date Time [id number] IDCO Episode Type Category AT/AF IDCO Episode Vendor Type Category ATR IDCO Episode Detection Interval Atrial 279 ms IDCO Episode Duration 73 s IDCO Episode Detection And Therapy Details ATR IDCO Episode Identifier [id number] IDCO Episode Date Time [id number] IDCO Episode Type Category Other IDCO Episode Vendor Type Category XANDER IDCO Episode Detection Interval Ventricular 938 ms IDCO Episode Duration 54 s IDCO Episode Detection And Therapy Details IDCO Episode Identifier [id number] IDCO Episode Date Time IDCO Episode Type Category Other IDCO Episode Vendor Type Category XANDER IDCO Episode Detection Interval Ventricular 984 ms IDCO Episode Duration 57 s IDCO Episode Detection And Therapy Details IDCO Episode Identifier [id number] IDCO Episode Date Time IDCO Episode Type Category Other IDCO Episode Vendor Type Category XANDER IDCO Episode Detection Interval Ventricular 1,091 ms IDCO Episode Duration 57 s IDCO Episode Detection And Therapy Details [id number] Episode Date Time [id number] IDCO Episode Type Category Other IDCO Episode Vendor Type Category XANDER IDCO Episode Detection Interval Ventricular 1,000 ms IDCO Episode Duration 58 s IDCO Episode Detection And Therapy Details IDCO Episode Identifier [id number] IDCO Episode Date Time [id number] IDCO Episode Type Category Other IDCO Episode Vendor Type Category XANDER IDCO Episode Detection Interval Ventricular 984 ms IDCO Episode Duration 57 s IDCO Episode Detection And Therapy Details [facility] IDCO Episode Identifier [facility]-45680 IDCO Episode Date Time [id number] IDCO Episode Type Category Other IDCO Episode Vendor Type Category XANDER IDCO Episode Detection Interval Ventricular 1,071 ms IDCO Episode Duration 57 s IDCO Episode Detection And Therapy Details [facility] IDCO Episode Identifier [id number] IDCO Episode Date Time [id number] IDCO Episode Type Category Other IDCO Episode Vendor Type Category XANDER IDCO Episode Detection Interval Ventricular 1,017 ms IDCO Episode Duration 54 s IDCO Episode Detection And Therapy Details [facility] IDCO Episode Identifier [facility]-65186 IDCO Episode Date Time [id number] IDCO Episode Type Category Other IDCO Episode Vendor Type Category XANDER IDCO Episode Detection Interval Ventricular 952 ms IDCO Episode Duration 56 s IDCO Episode Detection And Therapy Details [facility] IDCO Episode Identifier [facility]-43274 IDCO Episode Date Time [id number] IDCO Episode Type Category Other IDCO Episode Vendor Type Category XANDER IDCO Episode Detection Interval Ventricular 952 ms IDCO Episode Duration 57 s IDCO Episode Detection And Therapy Details [facility] IDCO Episode Identifier [facility]-40510 IDCO Episode Date Time [id number] IDCO Episode Type Category Other IDCO Episode Vendor Type Category XANDER IDCO Episode Detection Interval Ventricular 1,091 ms IDCO Episode Duration 57 s IDCO Episode Detection And Therapy Details [facility] IDCO Episode Identifier ATR-427 IDCO Episode Date Time [id number] IDCO Episode Type Category AT/AF IDCO Episode Vendor Type Category ATR IDCO Episode Detection Interval Atrial 270 ms IDCO Episode Duration 39,081 s IDCO Episode Detection And Therapy Details ATR IDCO Episode Identifier ATR-426 IDCO Episode Date Time [id number] IDCO Episode Type Category AT/AF IDCO Episode Vendor Type Category ATR IDCO Episode Detection Interval Atrial 247 ms IDCO Episode Duration 610 s IDCO Episode Detection And Therapy Details ATR IDCO Episode Identifier ATR-425 IDCO Episode Date Time [id number] IDCO Episode Type Category AT/AF IDCO Episode Vendor Type Category ATR IDCO Episode Detection Interval Atrial 882 ms IDCO Episode Duration 2 s IDCO Episode Detection And Therapy Details ATR IDCO Episode Identifier ATR-424 IDCO Episode Date Time [id number] IDCO Episode Type Category AT/AF IDCO Episode Vendor Type Category ATR IDCO Episode Detection Interval Atrial 833 ms IDCO Episode Duration 2 s IDCO Episode Detection And Therapy Details ATR IDCO Episode Identifier ATR-423 IDCO Episode Date Time [id number] IDCO Episode Type Category AT/AF IDCO Episode [...] Episode Identifier ATR-421 IDCO Episode Date Time [id number] IDCO Episode Type Category AT/AF IDCO Episode Vendor Type Category ATR IDCO Episode Detection Interval Atrial 896 ms IDCO Episode Duration 1 s IDCO Episode Detection And Therapy Details ATR IDCO Episode Identifier [id number] IDCO Episode Date Time [id number] IDCO Episode Type Category VT IDCO Episode Vendor Type Category NSVT IDCO Episode Type Induced Flag NO IDCO Episode Detection Interval Ventricular 432 ms IDCO Episode Duration 8 s IDCO Episode Detection And Therapy Details NonSustV IDCO Episode Identifier ATR-420 IDCO Episode Date Time [id number] IDCO Episode Type Category AT/AF IDCO Episode Vendor Type Category ATR IDCO Episode Detection Interval Atrial 234 ms IDCO Episode Duration 17,622 s IDCO Episode Detection And Therapy Details ATR IDCO Episode Identifier ATR-419 IDCO Episode Date Time [id number] IDCO Episode Type Category AT/AF IDCO Episode Vendor Type Category ATR IDCO Episode Detection Interval Atrial 698 ms IDCO Episode Duration 5 s IDCO Episode Detection And Therapy Details ATR IDCO Episode Identifier V IDCO Episode Date Time [id number] IDCO Episode Type Category VT IDCO Episode Vendor Type Category NSVT IDCO Episode Type Induced Flag NO IDCO Episode Detection Interval Ventricular 405 ms IDCO Episode Duration 6 s IDCO Episode Detection And Therapy Details NonSustV IDCO Episode Identifier IDCO Episode Date Time [id number] IDCO Episode Type Category VT IDCO Episode [...] IDCO Episode Identifier IDCO Episode Date Time [id number] IDCO Episode Type Category VT IDCO Episode [...] E162 IDCO Implantable Pulse Generator Serial Number [id number] IDCO Implantable Pulse Generator Broadcast Engineer [place] [employer] IDCO Implantable Pulse Generator Implant Date 20140110 IDCO Implantable Lead Model 4136 IDCO Implantable Lead Serial Number [id number] IDCO Implantable Lead Broadcast Engineer Guidant IDCO Implantable Lead Implant Date 20130421 IDCO Implantable Lead Polarity Type Bipolar Lead IDCO Implantable Lead Location Right Atrium IDCO Implantable Lead Model 0292 IDCO Implantable Lead Serial Number [id number] IDCO Implantable Lead Broadcast Engineer [place] [employer] IDCO Implantable Lead Implant Date IDCO [...] Lead Channel Pacing Threshold Measurement Method [employer] Consultant Manual IDCO Lead Channel Pacing Threshold [...] Lead Channel Pacing Threshold Measurement Method [employer] Consultant Manual IDCO Lead Channel Pacing Threshold [...] on filedocumented in this encounter Care Teams Broommaker Relationship Specialty Start Date End Date Dewayne Carrington MD PCP - General 09/02/16 documented as of this encounter
--- OUTSIDE RECORDS SUMMARY | 2024-05-09 16:19 | XMS_ITS | Encounter Summary ---
Author Organization [facility] [place] [address] Care Team Providers Care Railroad Crossing Protection Maintainer Name Role Phone Dewayne Carrington MD Primary Care Provider [phone] Encounter Details Date Type Department Care Team (Late st Contact Info) Description 11/23/2019 Telephone Dermatology at [facility] [address] [place] [phone] Irena Miranda MD Social History Tobacco Use [...] [facility] Hospital Encounter Non-[place] [phone] Arrived documented as of this encounter Visit Diagnoses Not on filedocumented in this encounter Care Teams Railroad Crossing Protection Maintainer Relationship Specialty Start Date End Date Dewayne Carrington MD PCP - General 09/02/16 documented as of this encounter
--- OUTSIDE RECORDS SUMMARY | 2024-05-09 16:19 | XMS_ITS | Encounter Summary ---
Author Organization [facility] [place] [address] Care Team Providers Care Lime Plant Operator Name Role Phone Dewayne Carrington MD Primary Care Provider Encounter Details Date Type Department Care Team (Late st Contact Info) Description 09/30/2019 [place] [address] Edy Burns [place] [facility] [address] Social History Tobacco Use Types Packs/Day Years [...] Transmission Date: 09/30/2019 Device Type: ICD Generator administrative associate: AVIA Battery Status: Beginning of Service Atrial lead [...] st Contact Info) Description 06/15/2024 10:00 AM [facility] Hospital Encounter Non-[place] [address] Arrived documented as of this encounter Visit Diagnoses Not on filedocumented in this encounter Care Teams Lime Plant Operator Relationship Specialty Start Date End Date Dewayne Carrington MD PCP - General 09/02/16 documented as of this encounter
--- OUTSIDE RECORDS SUMMARY | 2024-05-09 16:19 | XMS_ITS | Encounter Summary ---
Author Organization [facility] Address [facility] [place] [address] Care Team Providers Care Rubber Trimmer Name Role Phone Dewayne Carrington MD Primary Care Provider [phone] Encounter Details Date Type Department Care Team ([facility] st Contact Info) Description 06/20/2019 Telephone Cardiology at [address] [phone] Chante Robertson RN Social History Tobacco Use [...] AM EST Hospital Encounter Non-[place] [address] Arrived documented as of this encounter Visit Diagnoses Not on filedocumented in this encounter Care Teams Rubber Trimmer Relationship Specialty Start Date End Date Dewayne Carrington MD PCP - General 09/02/16 documented as of this encounter
--- OUTSIDE RECORDS SUMMARY | 2024-05-09 16:19 | XMS_ITS | Encounter Summary ---
[place] [address] Care Team Providers Care Radio Division Officer Name Role Phone Dewayne Carrington MD Primary Care Provider [phone] Reason for Visit * Reason Onset Date Comments Prior Authorization 12/05/2019 tacrolimus ( PROTOPIC) 0.1 % Ointment Encounter Details Date Type Department Care Team (Late st Contact Info) Description 12/05/2019 Telephone Dermatology at [facility] [address] [place] [address] [place] CMA Prior Authorization (tacrolimus (PROTOPIC) [...] Date: 12/05/2019 End Date: 04/19/2020 Case/Reference #: [id number] See Approval Letter in scanned documents. Additional Notes: * Telephone Encounter - [place]ero MA - 12/05/2019 10:03 AM EDT Medication Prior Authorization for Primary [place] [address] Request received via: [facility] Patient: Marquez Hendrix Patient : 1950 Insurance Company: [email or web address] Sent via: [facility] [place]: [id number] Physician: Irena Miranda MD Medication Requested: tacrolimus [...] AM EST Hospital Encounter [place] [address] Arrived documented as of this encounter Visit Diagnoses Not on filedocumented in this encounter Care Teams Radio Division Officer Relationship Specialty Start Date End Date Dewayne Carrington MD PCP - General 09/02/16 documented as of this encounter
--- OUTSIDE RECORDS SUMMARY | 2024-05-09 16:19 | XMS_ITS | Encounter Summary ---
Author Organization [facility] Address [facility] [place] [address] Care Team Providers Care Practice Business Asst Name Role Phone Dewayne Carrington MD Primary Care Provider [phone] Encounter Details Date Type Department Care Team ([facility] Contact Info) Description 11/17/2019 Telephone Dermatology at [facility] [address] [place] [address] Irena Miranda MD Social History Tobacco Use [...] Upcoming Encounters Date Type Department Care Team ([facility] Contact Info) Description 06/15/2024 10:00 AM EST Hospital Encounter Non-[place] [address] Arrived documented as of this encounter Visit Diagnoses Not on filedocumented in this encounter Care Teams Practice Business Asst Relationship Specialty Start Date End Date Dewayne Carrington MD PCP - General 09/02/16 documented as of this encounter
--- OUTSIDE RECORDS SUMMARY | 2024-05-09 16:19 | XMS_ITS | Encounter Summary ---
[place] [address] Care Team Providers Care Hat Sprayer Name Role Phone Dewayne Carrington MD Primary Care Provider [phone] Encounter Details Date Type Department Care Team (Late st Contact Info) Description 06/20/2019 Orders Only Cardiology at [address] [phone] Social History Tobacco Use Types Packs/Day Years [...] AM EST Hospital Encounter Non-Invasive [place] [address] Arrived documented as of this encounter Procedures Procedure Name Priority Date/Time Associated Diagnosis Comments CARDIAC DEVICE CHECK - REMOTE PATIENT INITIATED Routine 06/20/2019 5:33 PM EST documented in this encounter Results * Cardiac device check - Remote Patient Initiated (06/20/2019 5:33 PM EST) Date Time Interrogation Session [id number] IDCO Type Interrogation Session Remote Patient Initiated IDCO Clinic Name [facility] IDCO Battery Date Time of Measurements [id number] IDCO Battery Status Beginning of Service IDCO [...] Therapy Details Presenting EGM IDCO Episode Identifier [facility]-[id number] IDCO Episode Date Time IDCO Episode Type Category Other IDCO Episode Vendor Type Category XANDER IDCO Episode Detection Interval Ventricular 923 ms IDCO Episode Duration 54 s IDCO Episode Detection And Therapy Details IDCO Episode Identifier [id number] IDCO Episode Date Time IDCO Episode Type Category Other IDCO Episode Vendor Type Category XANDER IDCO Episode Detection Interval Ventricular 952 ms IDCO Episode Duration 57 s IDCO Episode Detection And Therapy Details IDCO Episode Identifier [id number] IDCO Episode Date Time IDCO Episode Type Category Other IDCO Episode Vendor Type Category XANDER IDCO Episode Detection Interval Ventricular 968 ms IDCO Episode Duration 56 s IDCO Episode Detection And Therapy Details IDCO [place]ifier [id number] IDCO Episode Date Time IDCO Episode Type Category Other IDCO Episode Vendor Type Category XANDER IDCO Episode Detection Interval Ventricular 952 ms IDCO Episode Duration 56 s IDCO Episode Detection And Therapy Details IDCO Episode Identifier [id number] IDCO Episode Date Time IDCO Episode Type Category Other IDCO Episode Vendor Type Category XANDER IDCO Episode Detection Interval Ventricular 1,091 ms IDCO Episode Duration 58 s IDCO Episode Detection And Therapy Details IDCO Episode Identifier [id number] IDCO Episode Date Time IDCO Episode Type Category Other IDCO Episode Vendor Type Category XANDER IDCO Episode Detection Interval Ventricular 952 ms IDCO Episode Duration 55 s IDCO Episode Detection And Therapy Details IDCO Episode Identifier [id number] IDCO Episode Date Time IDCO Episode Type Category Other IDCO Episode Vendor Type Category XANDER IDCO Episode Detection Interval Ventricular 923 ms IDCO Episode Duration 55 s IDCO Episode Detection And Therapy Details IDCO Episode Identifier [id number] IDCO Episode Date Time IDCO Episode Type Category Other IDCO Episode Vendor Type Category XANDER IDCO Episode Detection Interval Ventricular 896 ms IDCO Episode Duration 54 s IDCO Episode Detection And Therapy Details IDCO Episode Identifier [id number] IDCO Episode Date Time IDCO Episode Type Category Other IDCO Episode Vendor Type Category XANDER IDCO Episode Detection Interval Ventricular 952 ms IDCO Episode Duration 41 s IDCO Episode Detection And Therapy Details IDCO Episode Identifier [id number] IDCO Episode Date Time IDCO Episode Type [...] E162 IDCO Implantable Pulse Generator Serial Number [id number] IDCO Implantable Pulse Generator Supervisor Assembly Room [employer] IDCO Implantable Pulse Generator Implant Date 20140110 IDCO Implantable Lead Model 4136 IDCO Implantable Lead Serial Number [id number] IDCO Implantable Lead Supervisor Assembly Room Guidant IDCO Implantable Lead Implant Date 20130421 IDCO Implantable Lead Polarity Type Bipolar Lead IDCO Implantable Lead Location Right Atrium IDCO Implantable Lead Model 0292 IDCO Implantable Lead Serial Number [id number] IDCO Implantable Lead Supervisor Assembly Room [employer] IDCO Implantable Lead Implant Date IDCO [...] IDCO Lead Channel Pacing Threshold Measurement Method [employer] Crew Member Manual IDCO Lead Channel Pacing Threshold Polarity [...] IDCO Lead Channel Pacing Threshold Measurement Method [employer] Crew Member Manual IDCO Lead Channel Pacing Threshold Polarity [...]
--- OUTSIDE RECORDS SUMMARY | 2024-05-09 16:19 | XMS_ITS | Encounter Summary ---
Author Organization [facility] [place] [address] Care Team Providers Care Molder Closed Molds Name Role Phone Dewayne Carrington MD Primary Care Provider [phone] Encounter Details Date Type Department Care Team (Late st Contact Info) Description 06/17/2019 Telephone Cardiology at [address] [phone] Chante Robertson RN Social History Tobacco Use [...] I was pass this along to his rehabilitation teacher and he should call if he has any questions or symptoms. documented in this encounter Plan of Treatment Upcoming Encounters Date Type Department Care Team (Late st Contact Info) Description 06/15/2024 10:00 AM EST Hospital Encounter Non-[place] [address] Arrived documented as of this encounter Visit Diagnoses Not on filedocumented in this encounter Care Teams Molder Closed Molds Relationship Specialty Start Date End Date Dewayne Carrington MD PCP - General 09/02/16 documented as of this encounter
--- OUTSIDE RECORDS SUMMARY | 2024-05-09 16:19 | XMS_ITS | Encounter Summary ---
Author Organization [facility] Address [facility] [place] [address] Care Team Providers Care Dump Attendant Name Role Phone Dewayne Carrington MD Primary Care Provider [phone] Encounter Details Date Type Department Care Team (Late st Contact Info) Description 11/14/2019 Notes Only Cardiology at [address] [address] Edy Torres PA [facility] [place] [address] Social History Tobacco Use Types Packs/Day Years [...] Transmission Date: 11/12/2019 Device Type: ICD Generator chief controller tower: BSC Battery Status: good; five years Atrial lead status: OK Right ventricular lead status: OK Left ventricular lead status: n/a Physiologic Monitoring: n/a Events/Arrhythmias noted since last reset : Atrial fib/flutter4% burden; >24 hrs since 11/10 Impression: Normally functioning device No HV therapy Known PAF/flutter; anticoagulated MAXIMO Lieja Cardiac Electrophysiology documented in this encounter Plan of Treatment Upcoming Encounters Date Type Department Care Team (Late st Contact Info) Description 06/15/2024 10:00 AM [facility] Encounter [place] [address] Arrived documented as of this encounter Visit Diagnoses Not on filedocumented in this encounter Care Teams Dump Attendant Relationship Specialty Start Date End Date Dewayne Carrington MD PCP - General 09/02/16 documented as of this encounter
--- OUTSIDE RECORDS SUMMARY | 2024-05-09 16:19 | XMS_ITS | Encounter Summary ---
Author Organization [facility] Address [facility] [place] [address] Care Team Providers Care Associate Professor Of Counseling Name Role Phone Dewayne Carrington MD Primary Care Provider [phone] Encounter Details Date Type Department Care Team (Late st Contact Info) Description 07/21/2019 Telephone Dermatology at [facility] [address] [place] [address] Sanjay Early Social History Tobacco Use Types [...] AM EST Hospital Encounter Non-[place] [address] Arrived documented as of this encounter Visit Diagnoses Not on filedocumented in this encounter Care Teams Associate Professor Of Counseling Relationship Specialty Start Date End Date Dewayne Carrington MD PCP - General 09/02/16 documented as of this encounter
--- OUTSIDE RECORDS SUMMARY | 2024-05-09 16:19 | XMS_ITS | Encounter Summary ---
[place] [address] Care Team Providers Care Alumina Refinery Operator Name Role Phone Dewayne Carrington MD Primary Care Provider [phone] Encounter Details Date Type Department Care Team (Late st Contact Info) Description 11/12/2019 Orders Only Cardiology at [address] [address] Social History Tobacco Use Types Packs/Day Years [...] AM EST Hospital Encounter [place] [address] Arrived documented as of this encounter Procedures Procedure Name Priority Date/Time Associated Diagnosis Comments CARDIAC DEVICE CHECK - REMOTE DEVICE INITIATED Routine 11/12/2019 12:43 AM EDT documented in this encounter Results * Cardiac device check - Remote Device Initiated (11/12/2019 12:43 AM EDT) Date Time Interrogation Session [id number] IDCO Type Interrogation Session Remote Device Initiated [facility] IDCO Battery Date Time of Measurements [id number] IDCO Battery Status Beginning of Service IDCO Battery Remaining Longevity 60 mo IDCO Battery Remaining Percentage 72 % IDCO Capacitor Last Charge Date Time IDCO Capacitor Charge Time 11.0 s IDCO Capacitor Charge Type Reformation IDCO Capacitor Last Charge Date Time [id number] IDCO Capacitor Charge Time 3.8 s IDCO Capacitor Charge Energy 21 J IDCO Capacitor Charge Type Shock IDCO Episode Identifier [id number] IDCO Episode Date Time [id number] IDCO Episode Type Category Periodic EGM IDCO [...] And Therapy Details ATR IDCO Episode Identifier [id number] IDCO Episode Date Time IDCO Episode Type Category Other IDCO Episode Vendor Type Category XANDER IDCO Episode Detection Interval Ventricular 1,000 ms IDCO Episode Duration 53 s IDCO Episode Detection And Therapy Details Q IDCO Episode Identifier [id number] IDCO Episode Date Time IDCO Episode Type Category Other IDCO Episode Vendor Type Category XANDER IDCO Episode Detection Interval Ventricular 1,000 ms IDCO Episode Duration 54 s IDCO Episode Detection And Therapy Details Q IDCO Episode Identifier [id number] IDCO Episode Date Time IDCO Episode Type Category Other IDCO Episode Vendor Type Category XANDER IDCO Episode Detection Interval Ventricular 984 ms IDCO Episode Duration 54 s IDCO Episode Detection And Therapy Details IDCO Episode Identifier [id number] IDCO Episode Date Time IDCO Episode Type Category Other IDCO Episode Vendor Type Category XANDER IDCO Episode Detection Interval Ventricular 1,000 ms IDCO Episode Duration 54 s IDCO Episode Detection And Therapy Details Q IDCO Episode Identifier [id number] IDCO Episode Date Time IDCO Episode Type Category Other IDCO Episode Vendor Type Category XANDER IDCO Episode Detection Interval Ventricular 938 ms IDCO Episode Duration 54 s IDCO Episode Detection And Therapy Details IDCO Episode Identifier [id number] IDCO Episode Date Time IDCO Episode Type Category Other IDCO Episode Vendor Type Category XANDER IDCO Episode Detection Interval Ventricular 1,017 ms IDCO Episode Duration 53 s IDCO Episode Detection And Therapy Details Q IDCO Episode Identifier [id number] IDCO Episode Date Time [id number] IDCO Episode Type Category Other IDCO Episode Vendor Type Category XANDER IDCO Episode Detection Interval Ventricular 1,364 ms IDCO Episode Duration 60 s IDCO Episode Detection And Therapy Details Q IDCO Episode Identifier [id number] IDCO Episode Date Time IDCO Episode Type Category Other IDCO Episode Vendor Type Category XANDER IDCO Episode Detection Interval Ventricular 1,071 ms IDCO Episode Duration 61 s IDCO Episode Detection And Therapy Details IDCO Episode Identifier [id number] IDCO Episode Date Time IDCO Episode Type Category Other IDCO Episode Vendor Type Category XANDER IDCO Episode Detection Interval Ventricular 984 ms IDCO Episode Duration 61 s IDCO Episode Detection And Therapy Details IDCO Episode Identifier [id number] IDCO Episode Date Time IDCO Episode Type [...] Episode Identifier [id number] IDCO Episode Date Time [id number] IDCO Episode Type Category AT/AF IDCO Episode Vendor Type Category ATR IDCO Episode Detection Interval Atrial 287 ms IDCO Episode Duration 32 s IDCO Episode Detection And Therapy Details ATR IDCO Episode Identifier [id number] IDCO Episode Date Time [id number] IDCO Episode Type Category AT/AF IDCO Episode [...] E162 IDCO Implantable Pulse Generator Serial Number [id number] IDCO Implantable Pulse Generator Social Science Analyst [place] [employer] IDCO Implantable Pulse Generator Implant Date 20140110 IDCO Implantable Lead Model 4136 IDCO Implantable Lead Serial Number [id number] IDCO Implantable Lead Social Science Analyst Guidant IDCO Implantable Lead Implant Date 20130421 IDCO Implantable Lead Polarity Type Bipolar Lead IDCO Implantable Lead Location Right Atrium IDCO Implantable Lead Model 0292 IDCO Implantable Lead Serial Number [id number] IDCO Implantable Lead Social Science Analyst [place] [employer] IDCO Implantable Lead Implant Date IDCO [...] IDCO Lead Channel Pacing Threshold Measurement Method Forklift Supervisor Manual IDCO Lead Channel Pacing Threshold [...] IDCO Lead Channel Pacing Threshold Measurement Method Forklift Supervisor Manual IDCO Lead Channel Pacing Threshold [...] on filedocumented in this encounter Care Teams Alumina Refinery Operator Relationship Specialty Start Date End Date Dewayne Carrington MD PCP - General 09/02/16 documented as of this encounter
--- OUTSIDE RECORDS SUMMARY | 2024-05-09 16:19 | XMS_ITS | Encounter Summary ---
[place] [address] Care Team Providers Care Implementation Architect Name Role Phone Dewayne Carrington MD Primary Care Provider [phone] Encounter Details Date Type Department Care Team (Late st Contact Info) Description 09/30/2019 Orders Only Cardiology at [address] [address] Social History Tobacco Use Types Packs/Day Years [...] AM EST Hospital Encounter Non-[place] [address] Arrived documented as of this encounter Procedures Procedure Name Priority Date/Time Associated Diagnosis Comments CARDIAC DEVICE CHECK - REMOTE DEVICE INITIATED Routine 09/30/2019 12:41 AM EDT documented in this encounter Results * Cardiac device check - Remote Device Initiated (09/30/2019 12:41 AM EDT) Date Time Interrogation Session [id number] IDCO Type Interrogation Session Remote Device Initiated IDCO Clinic Name [facility] IDCO Battery Date Time of Measurements [id number] IDCO Battery Status Beginning of Service IDCO [...] And Therapy Details ATR IDCO Episode Identifier [id number] IDCO Episode Date Time IDCO Episode Type Category Other IDCO Episode Vendor Type Category XANDER IDCO Episode Detection Interval Ventricular 923 ms IDCO Episode Duration 56 s IDCO Episode Detection And Therapy Details IDCO Episode Identifier [id number] IDCO Episode Date Time IDCO Episode Type Category Other IDCO Episode Vendor Type Category XANDER IDCO Episode Detection Interval Ventricular 1,053 ms IDCO Episode Duration 59 s IDCO Episode Detection And Therapy Details IDCO Episode Identifier [id number] IDCO Episode Date Time IDCO Episode Type Category Other IDCO Episode Vendor Type Category XANDER IDCO Episode Detection Interval Ventricular 1,000 ms IDCO Episode Duration 58 s IDCO Episode Detection And Therapy Details IDCO Episode Identifier [id number] IDCO Episode Date Time [id number] IDCO Episode Type Category Other IDCO Episode Vendor Type Category XANDER IDCO Episode Detection Interval Ventricular 1,000 ms IDCO Episode Duration 60 s IDCO Episode Detection And Therapy Details IDCO Episode Identifier [id number] IDCO Episode Date Time IDCO Episode Type Category Other IDCO Episode Vendor Type Category XANDER IDCO Episode Detection Interval Ventricular 1,091 ms IDCO Episode Duration 59 s IDCO Episode Detection And Therapy Details Q IDCO Episode Identifier [id number] IDCO Episode Date Time IDCO Episode Type Category Other IDCO Episode Vendor Type Category XANDER IDCO Episode Detection Interval Ventricular 968 ms IDCO Episode Duration 58 s IDCO Episode Detection And Therapy Details Q IDCO Episode Identifier [id number] IDCO Episode Date Time IDCO Episode Type Category Other IDCO Episode Vendor Type Category XANDER IDCO Episode Detection Interval Ventricular 938 ms IDCO Episode Duration 53 s IDCO Episode Detection And Therapy Details IDCO Episode Identifier [id number] IDCO Episode Date Time IDCO Episode Type Category Other IDCO Episode Vendor Type Category XANDER IDCO Episode Detection Interval Ventricular 923 ms IDCO Episode Duration 53 s IDCO Episode Detection And Therapy Details IDCO Episode Identifier [id number] IDCO Episode Date Time IDCO Episode Type Category Other IDCO Episode Vendor Type Category XANDER IDCO Episode Detection Interval Ventricular 923 ms IDCO Episode Duration 54 s IDCO Episode Detection And Therapy Details IDCO Episode Identifier [id number] IDCO Episode Date Time IDCO Episode Type [...] E162 IDCO Implantable Pulse Generator Serial Number [id number] IDCO Implantable Pulse Generator Lens Blank Gauger [place] [employer] IDCO Implantable Pulse Generator Implant Date 20140110 IDCO Implantable Lead Model 4136 IDCO Implantable Lead Serial Number [id number] IDCO Implantable Lead Lens Blank Gauger Guidant IDCO Implantable Lead Implant Date 20130421 IDCO Implantable Lead Polarity Type Bipolar Lead IDCO Implantable Lead Location Right Atrium IDCO Implantable Lead Model 0292 IDCO Implantable Lead Serial Number [id number] IDCO Implantable Lead Lens Blank Gauger [place] [employer] IDCO Implantable Lead Implant Date IDCO [...] IDCO Lead Channel Pacing Threshold Measurement Method Federal Law Clerk Manual IDCO Lead Channel Pacing Threshold [...] IDCO Lead Channel Pacing Threshold Measurement Method Federal Law Clerk Manual IDCO Lead Channel Pacing Threshold [...] filedocumented in this encounter Care Teams Implementation Architect Relationship Specialty Start Date End Date Dewayne Carrington MD PCP - General 09/02/16 documented as of this encounter
--- OUTSIDE RECORDS SUMMARY | 2024-05-09 16:19 | XMS_ITS | Encounter Summary ---
Author Organization [facility] [place] [address] Care Team Providers Care Filter Cleaner Name Role Phone Dewayne Carrington MD Primary Care Provider [phone] Encounter Details Date Type Department Care Team ([facility] st Contact Info) Description 07/14/2019 Telephone Cardiology at [address] [address] Nicole Cancino, RN Social History [...] is all set with an EP and conceptor at [facility]. Look back into the referral - [...] [place] [facility] Encounter [place] [address] Arrived documented as of this encounter Visit Diagnoses Not on filedocumented in this encounter Care Teams Filter Cleaner Relationship Specialty Start Date End Date Dewayne Carrington MD PCP - General 09/02/16 documented as of this encounter
--- OUTSIDE RECORDS SUMMARY | 2024-05-09 16:19 | XMS_ITS | Encounter Summary ---
[place] [address] Care Team Providers Care Critical Care Nurse Name Role Phone Dewayne Carrington MD Primary Care Provider Encounter Details Date Type Department Care Team (Late st Contact Info) Description 12/06/2019 Orders Only Cardiology at [address] [address] Social History Tobacco Use Types Packs/Day Years [...] AM EST Hospital Encounter Non[place] [address] Arrived documented as of this encounter Procedures Procedure Name Priority Date/Time Associated Diagnosis Comments CARDIAC DEVICE CHECK - REMOTE DEVICE INITIATED Routine 12/06/2019 12:54 AM EDT documented in this encounter Results * Cardiac device check - Remote Device Initiated (12/06/2019 12:54 AM EDT) Date Time Interrogation Session [id number] IDCO Type Interrogation Session Remote Device Initiated [facility] IDCO Battery Date Time of Measurements [id number] IDCO Battery Status Beginning of Service IDCO Battery Remaining Longevity 60 mo IDCO Battery Remaining Percentage 72 % IDCO Capacitor Last Charge Date Time IDCO Capacitor Charge Time 11.0 s IDCO Capacitor Charge Type Reformation IDCO Capacitor Last Charge Date Time [id number] IDCO Capacitor Charge Time 3.8 s IDCO Capacitor Charge Energy 21 J IDCO Capacitor Charge Type Shock IDCO Episode Identifier APM-[id number] IDCO Episode Date Time [id number] IDCO Episode Type Category Periodic EGM IDCO [...] And Therapy Details ATR IDCO Episode Identifier [id number] IDCO Episode Date Time [id number] IDCO Episode Type Category Other IDCO Episode Vendor Type Category XANDER IDCO Episode Detection Interval Ventricular 1,053 ms IDCO Episode Duration 54 s IDCO Episode Detection And Therapy Details IDCO Episode Identifier [id number] IDCO Episode Date Time [id number] IDCO Episode Type Category Other IDCO Episode Vendor Type Category XANDER IDCO Episode Detection Interval Ventricular 938 ms IDCO Episode Duration 56 s IDCO Episode Detection And Therapy Details IDCO Episode Identifier [id number] IDCO Episode Date Time [id number] IDCO Episode Type Category Other IDCO Episode Vendor Type Category XANDER IDCO Episode Detection Interval Ventricular 952 ms IDCO Episode Duration 54 s IDCO Episode Detection And Therapy Details IDCO Episode Identifier [id number] IDCO Episode Date Time [id number] IDCO Episode Type Category Other IDCO Episode Vendor Type Category XANDER IDCO Episode Detection Interval Ventricular 1,017 ms IDCO Episode Duration 56 s IDCO Episode Detection And Therapy Details IDCO Episode Identifier [id number] IDCO Episode Date Time [id number] IDCO Episode Type Category Other IDCO Episode Vendor Type Category XANDER IDCO Episode Detection Interval Ventricular 833 ms IDCO Episode Duration 49 s IDCO Episode Detection And Therapy Details Q IDCO Episode Identifier [id number] IDCO Episode Date Time [id number] IDCO Episode Type Category Other IDCO Episode Vendor Type Category XANDER IDCO Episode Detection Interval Ventricular 938 ms IDCO Episode Duration 50 s IDCO Episode Detection And Therapy Details Q IDCO Episode Identifier [id number] IDCO Episode Date Time [id number] IDCO Episode Type Category Other IDCO Episode Vendor Type Category XANDER IDCO Episode Detection Interval Ventricular 938 ms IDCO Episode Duration 57 s IDCO Episode Detection And Therapy Details IDCO Episode Identifier [id number] IDCO Episode Date Time [id number] IDCO Episode Type Category Other IDCO Episode Vendor Type Category XANDER IDCO Episode Detection Interval Ventricular 923 ms IDCO Episode Duration 55 s IDCO Episode Detection And Therapy Details IDCO Episode Identifier -[id number] IDCO Episode Date Time [id number] IDCO Episode Type Category Other IDCO Episode Vendor Type Category XANDER IDCO Episode Detection Interval Ventricular 909 ms IDCO Episode Duration 54 s IDCO Episode Detection And Therapy Details IDCO Episode Identifier [id number] IDCO Episode Date Time [id number] IDCO Episode Type Category Other IDCO Episode Vendor Type Category XANDER IDCO Episode Detection Interval Ventricular 923 ms IDCO Episode Duration 55 s IDCO Episode Detection And Therapy Details IDCO Episode Identifier [id number]-410 IDCO Episode Date Time [id number] IDCO Episode Type Category AT/AF IDCO Episode Vendor Type Category ATR IDCO Episode Detection Interval Atrial 252 ms IDCO Episode Duration 7 s IDCO Episode Detection And Therapy Details ATR IDCO Episode Identifier IDCO Episode Date Time [id number] IDCO Episode Type Category VT IDCO Episode Vendor Type Category NSVT IDCO Episode Type Induced Flag NO IDCO Episode Detection Interval Ventricular 390 ms IDCO Episode Duration 6 s IDCO Episode Detection And Therapy Details NonSustV IDCO Episode Identifier IDCO Episode Date Time [id number] IDCO Episode Type Category VT IDCO Episode Vendor Type Category NSVT IDCO Episode Type Induced Flag NO IDCO Episode Detection Interval Ventricular 397 ms IDCO Episode Duration 6 s IDCO Episode Detection And Therapy Details NonSustV IDCO Episode Identifier IDCO Episode Date Time [id number] IDCO Episode Type Category VT IDCO Episode Vendor Type Category NSVT IDCO Episode Type Induced Flag NO IDCO Episode Detection Interval Ventricular 390 ms IDCO Episode Duration 8 s IDCO Episode Detection And Therapy Details NonSustV IDCO Episode Identifier IDCO Episode Date Time [id number] IDCO Episode Type Category VT IDCO Episode Vendor Type Category NSVT IDCO Episode Type Induced Flag NO IDCO Episode Detection Interval Ventricular 387 ms IDCO Episode Duration 9 s IDCO Episode Detection And Therapy Details NonSustV IDCO Episode Identifier V IDCO Episode Date Time [id number] IDCO Episode Type Category VT IDCO Episode Vendor Type Category NSVT IDCO Episode Type Induced Flag NO IDCO Episode Detection Interval Ventricular 395 ms IDCO Episode Duration 6 s IDCO Episode Detection And Therapy Details NonSustV IDCO Episode Identifier [id number] IDCO Episode Date Time [id number] IDCO Episode Type Category AT/AF IDCO Episode [...] E162 IDCO Implantable Pulse Generator Serial Number [id number] IDCO Implantable Pulse Generator Plant Production Manager [place] [employer] IDCO Implantable Pulse Generator Implant Date 20140110 IDCO Implantable Lead Model 4136 IDCO Implantable Lead Serial Number [id number] IDCO Implantable Lead Plant Production Manager Guidant IDCO Implantable Lead Implant Date 20130421 IDCO Implantable Lead Polarity Type Bipolar Lead IDCO Implantable Lead Location Right Atrium IDCO Implantable Lead Model 0292 IDCO Implantable Lead Serial Number [id number] IDCO Implantable Lead Plant Production Manager [place] [employer] IDCO Implantable Lead Implant Date IDCO [...] IDCO Lead Channel Pacing Threshold Measurement Method Water And Fire Technician Manual IDCO Lead Channel Pacing Threshold [...] IDCO Lead Channel Pacing Threshold Measurement Method Water And Fire Technician Manual IDCO Lead Channel Pacing Threshold [...] on filedocumented in this encounter Care Teams Critical Care Nurse Relationship Specialty Start Date End Date Dewayne Carrington MD PCP - General 09/02/16 documented as of this encounter
--- OUTSIDE RECORDS SUMMARY | 2024-05-09 16:19 | XMS_ITS | Encounter Summary ---
[place] [address] Care Team Providers Care Bait Tier Name Role Phone Dewayne Carrington MD Primary Care Provider [phone] Encounter Details Date Type Department Care Team (Late st Contact Info) Description 08/04/2019 Orders Only Cardiology at [address] [address] Social History Tobacco Use Types Packs/Day Years [...] AM EST Hospital Encounter [place] [address] Arrived documented as of this encounter Procedures Procedure Name Priority Date/Time Associated Diagnosis Comments CARDIAC DEVICE CHECK - REMOTE SCHEDULED Routine 08/04/2019 12:42 AM EDT documented in this encounter Results * Cardiac device check - Remote Scheduled (08/04/2019 12:42 AM EDT) Date Time Interrogation Session [id number] IDCO Type Interrogation Session Remote Scheduled IDCO Clinic Name [facility] IDCO Battery Date Time of Measurements [id number] IDCO Battery Status Beginning of Service IDCO [...] Therapy Details Presenting EGM IDCO Episode Identifier [id number] IDCO Episode Date Time IDCO Episode Type Category Other IDCO Episode Vendor Type Category XANDER IDCO Episode Detection Interval Ventricular 938 ms IDCO Episode Duration 53 s IDCO Episode Detection And Therapy Details [id number] Episode Date Time [id number] IDCO Episode Type Category Other IDCO Episode Vendor Type Category XANDER IDCO Episode Detection Interval Ventricular 909 ms IDCO Episode Duration 53 s IDCO Episode Detection And Therapy Details IDCO Episode Identifier [id number] IDCO Episode Date Time IDCO Episode Type Category Other IDCO Episode Vendor Type Category XANDER IDCO Episode Detection Interval Ventricular 857 ms IDCO Episode Duration 52 s IDCO Episode Detection And Therapy Details IDCO Episode Identifier [id number] IDCO Episode Date Time IDCO Episode Type Category Other IDCO Episode Vendor Type Category XANDER IDCO Episode Detection Interval Ventricular 909 ms IDCO Episode Duration 53 s IDCO Episode Detection And Therapy Details IDCO Episode Identifier [id number] IDCO Episode Date Time [id number] IDCO Episode Type Category Other IDCO Episode Vendor Type Category XANDER IDCO Episode Detection Interval Ventricular 909 ms IDCO Episode Duration 54 s IDCO Episode Detection And Therapy Details IDCO Episode Identifier [id number] IDCO Episode Date Time [id number] IDCO Episode Type Category Other IDCO Episode Vendor Type Category XANDER IDCO Episode Detection Interval Ventricular 968 ms IDCO Episode Duration 57 s IDCO Episode Detection And Therapy Details IDCO Episode Identifier [id number] IDCO Episode Date Time [id number] IDCO Episode Type Category Other IDCO Episode Vendor Type Category XANDER IDCO Episode Detection Interval Ventricular 952 ms IDCO Episode Duration 57 s IDCO Episode Detection And Therapy Details [id number] IDCO Episode Date Time [id number] IDCO Episode Type Category Other IDCO Episode Vendor Type Category XANDER IDCO Episode Detection Interval Ventricular 952 ms IDCO Episode Duration 56 s IDCO Episode Detection And Therapy Details [facility] IDCO Episode Identifier [id number] IDCO Episode Date Time [id number] IDCO Episode Type Category Other IDCO Episode Vendor Type Category XANDER IDCO Episode Detection Interval Ventricular 952 ms IDCO Episode Duration 57 s IDCO Episode Detection And Therapy Details [facility] IDCO Episode Identifier [id number] IDCO Episode Date Time [id number] IDCO Episode Type Category Other IDCO Episode Vendor Type Category XANDER IDCO Episode Detection Interval Ventricular 952 ms IDCO Episode Duration 56 s IDCO Episode Detection And Therapy Details IDCO Episode Identifier [id number] IDCO Episode Date Time [id number] IDCO Episode Type Category AT/AF IDCO Episode Vendor Type Category ATR IDCO Episode Detection Interval Atrial 276 ms IDCO Episode Duration 17,329 s IDCO Episode Detection And Therapy Details ATR IDCO Episode Identifier [id number]-282 IDCO Episode Date Time [id number] IDCO Episode Type Category AT/AF IDCO Episode Vendor Type Category ATR IDCO Episode Detection Interval Atrial 262 ms IDCO Episode Duration 41,381 s IDCO Episode Detection And Therapy Details ATR IDCO Episode Identifier ATR-281 IDCO Episode Date Time [id number] IDCO Episode Type Category AT/AF IDCO Episode [...] E162 IDCO Implantable Pulse Generator Serial Number [id number] IDCO Implantable Pulse Generator Activities Director [place] [employer] IDCO Implantable Pulse Generator Implant Date 20140110 IDCO Implantable Lead Model 4136 IDCO Implantable Lead Serial Number [id number] IDCO Implantable Lead Activities Director Guidant IDCO Implantable Lead Implant Date 20130421 IDCO Implantable Lead Polarity Type Bipolar Lead IDCO Implantable Lead Location Right Atrium IDCO Implantable Lead Model 0292 IDCO Implantable Lead Serial Number [id number] IDCO Implantable Lead Activities Director [place] [employer] IDCO Implantable Lead Implant Date IDCO [...] Channel Pacing Threshold Measurement Method Residential Property Consultant Manual IDCO Lead Channel Pacing Threshold [...] Channel Pacing Threshold Measurement Method Residential Property Consultant Manual IDCO Lead Channel Pacing Threshold [...] on filedocumented in this encounter Care Teams Bait Tier Relationship Specialty Start Date End Date Dewayne Carrington MD PCP - General 09/02/16 documented as of this encounter
--- OUTSIDE RECORDS SUMMARY | 2024-05-09 16:19 | XMS_ITS | Encounter Summary ---
[place] [address] Care Team Providers Care Labor Gang Supervisor Name Role Phone Dewayne Carrington MD Primary Care Provider [phone] Encounter Details Date Type Department Care Team (Late Contact Info) Description 05/17/2019 External Results Cardiology at [address] [phone] Dewayne Carrington MD [address] [place] [id number] Social History Tobacco Use Types Packs/Day Years [...] AM EST Hospital Encounter Non-[place] [address] Arrived documented as of this encounter Procedures Procedure Name Priority Date/Time Associated Diagnosis Comments EP DEVICE SCAN Routine 05/05/2019 documented in this encounter Results * Scan Doc: EP Device (05/05/2019) Anatomical Region Laterality Modality Other Dewayne Carrington MD MEDIA MGR SCAN EXT O RDR/RSLT documented in this encounter Visit Diagnoses Not on filedocumented in this encounter Care Teams Labor Gang Supervisor Relationship Specialty Start Date End Date Dewayne Carrington MD PCP - General 09/02/16 documented as of this encounter
--- OUTSIDE RECORDS SUMMARY | 2024-05-09 16:19 | XMS_ITS | Encounter Summary ---
Author Organization [facility] Address [facility] [place] [address] Care Team Providers Care Investigation Manager Name Role Phone Dewayne Carrington MD Primary Care Provider [phone] Reason for Visit * Reason Comments Rash Encounter Details Date Type Department Care Team (Late st Contact Info) Description 11/15/2019 6:00 PM EDT Office Visit Dermatology at [facility] [address] [place] [address] Irena Miranda MD Lichen simplex chronicus Social [...] started using baby wipes. - preferred pharmacy: [id number] AT [facility] Social History: Retired Twice a Family History: [...] documentation. Irena Miranda MD Section of Dermatology [facility] documented in this encounter Plan of Treatment Upcoming Encounters Date Type Department Care Team (Late st Contact Info) Description 06/15/2024 10:00 AM EST Hospital Encounter [place] [address] Arrived documented as of this encounter Visit Diagnoses Diagnosis Lichen simplex chronicus Lichenification and lichen simplex chronicus documented in this encounter Care Teams Investigation Manager Relationship Specialty Start Date End Date Dewayne Carrington MD PCP - General 09/02/16 documented as of this encounter
--- OUTSIDE RECORDS SUMMARY | 2024-05-09 16:19 | XMS_ITS | Encounter Summary ---
Author Organization [facility] [place] [address] Care Team Providers Care Senior Account Manager Name Role Phone Dewayne Carrington MD Primary Care Provider [phone] Encounter Details Date Type Department Care Team (Late st Contact Info) Description 10/26/2019 Telephone Cardiology at [address] [phone] Chante Robertson RN Social History Tobacco Use [...] had high ventricular rates in 170's frm [id number] alerted on his remote The real time EGM showed AF with V-paces and V rates in the 90's documented in this encounter Plan of Treatment Upcoming Encounters Date Type Department Care Team (Late st Contact Info) Description 06/15/2024 10:00 AM EST Hospital Encounter Non-[place] [address] Arrived documented as of this encounter Visit Diagnoses Not on filedocumented in this encounter Care Teams Senior Account Manager Relationship Specialty Start Date End Date Dewayne Carrington MD PCP - General 09/02/16 documented as of this encounter
--- OUTSIDE RECORDS SUMMARY | 2024-05-09 16:19 | XMS_ITS | Encounter Summary ---
[place] [address] Care Team Providers Care Collaborative Teacher Name Role Phone Dewayne Carrington MD Primary Care Provider [phone] Encounter Details Date Type Department Care Team (Late st Contact Info) Description 06/17/2019 Orders Only Cardiology at [address] [phone] Social History Tobacco Use Types Packs/Day Years [...] AM EST Hospital Encounter [place] [address] Arrived documented as of this encounter Procedures Procedure Name Priority Date/Time Associated Diagnosis Comments CARDIAC DEVICE CHECK - REMOTE DEVICE INITIATED Routine 06/17/2019 12:42 AM EST documented in this encounter Results * Cardiac device check - Remote Device Initiated (06/17/2019 12:42 AM EST) Date Time Interrogation Session [id number] IDCO Type Interrogation Session Remote Device Initiated IDCO Clinic Name [facility] IDCO Battery Date Time of Measurements [id number] IDCO Battery Status Beginning of Service IDCO Battery Remaining Longevity 66 mo IDCO Battery Remaining Percentage 81 % IDCO Capacitor Last Charge Date Time IDCO Capacitor Charge Time 10.8 s IDCO Capacitor Charge Type Reformation IDCO Capacitor Last Charge Date Time [id number] IDCO Capacitor Charge Time 3.8 s IDCO [...] Episode Identifier [id number] IDCO Episode Date Time [id number] IDCO Episode Type Category AT/AF IDCO Episode Vendor Type Category ATR IDCO Episode Detection Interval Atrial 258 ms IDCO Episode Duration 90,751 s IDCO Episode Detection And Therapy Details ATR IDCO Episode Identifier [id number] IDCO Episode Date Time [id number] IDCO Episode Type Category Other IDCO Episode Vendor Type Category XANDER IDCO Episode Detection Interval Ventricular 968 ms IDCO Episode Duration 57 s IDCO Episode Detection And Therapy Details IDCO Episode Identifier [id number] IDCO Episode Date Time [id number] IDCO Episode Type Category Other IDCO Episode Vendor Type Category XANDER IDCO Episode Detection Interval Ventricular 909 ms IDCO Episode Duration 55 s IDCO Episode Detection And Therapy Details [facility] IDCO Episode Identifier [id number] IDCO Episode Date Time [id number] IDCO Episode Type Category Other IDCO Episode Vendor Type Category XANDER IDCO Episode Detection Interval Ventricular 923 ms IDCO Episode Duration 56 s IDCO Episode Detection And Therapy Details [facility] IDCO Episode Identifier [id number] IDCO Episode Date Time [id number] IDCO Episode Type Category Other IDCO Episode Vendor Type Category XANDER IDCO Episode Detection Interval Ventricular 952 ms IDCO Episode Duration 56 s IDCO Episode Detection And Therapy Details CO[id number] Episode Date Time [id number] IDCO Episode Type Category Other IDCO Episode Vendor Type Category XANDER IDCO Episode Detection Interval Ventricular 938 ms IDCO Episode Duration 58 s IDCO Episode Detection And Therapy Details IDCO Episode Identifier [id number] IDCO Episode Date Time [id number] IDCO Episode Type Category Other IDCO Episode Vendor Type Category XANDER IDCO Episode Detection Interval Ventricular 1,017 ms IDCO Episode Duration 56 s IDCO Episode Detection And Therapy Details IDCO Episode Identifier [id number] IDCO Episode Date Time [id number] IDCO Episode Type Category Other IDCO Episode Vendor Type Category XANDER IDCO Episode Detection Interval Ventricular 938 ms IDCO Episode Duration 55 s IDCO Episode Detection And Therapy Details CO IDCO Episode Identifier [facility]-[id number] IDCO Episode Date Time [id number] IDCO Episode Type Category Other IDCO Episode Vendor Type Category XANDER IDCO Episode Detection Interval Ventricular 984 ms IDCO Episode Duration 57 s IDCO Episode Detection And Therapy Details CO IDCO Episode Identifier [id number] IDCO Episode Date Time [id number] IDCO Episode Type Category Other IDCO Episode Vendor Type Category XANDER IDCO Episode Detection Interval Ventricular 952 ms IDCO Episode Duration 57 s IDCO Episode Detection And Therapy Details CO IDCO Episode Identifier [id number] IDCO Episode Date Time [id number] IDCO Episode Type Category Other IDCO Episode Vendor Type Category XANDER IDCO Episode Detection Interval Ventricular 1,071 ms IDCO Episode Duration 57 s IDCO Episode Detection And Therapy Details Q IDCO Episode Identifier IDCO Episode Date Time [id number] IDCO Episode Type Category VT IDCO Episode Vendor Type Category NSVT IDCO Episode Type Induced Flag NO IDCO Episode Detection Interval Ventricular 387 ms IDCO Episode Duration 6 s IDCO Episode Detection And Therapy Details NonSustV IDCO Episode Identifier V IDCO Episode Date Time [id number] IDCO Episode Type Category VT IDCO Episode [...] E162 IDCO Implantable Pulse Generator Serial Number [id number] IDCO Implantable Pulse Generator Restuarant Crew Worker [employer] IDCO Implantable Pulse Generator Implant Date 20140110 IDCO Implantable Lead Model 4136 IDCO Implantable Lead Serial Number [id number] IDCO Implantable Lead Restuarant Crew Worker Guidant IDCO Implantable Lead Implant Date 20130421 IDCO Implantable Lead Polarity Type Bipolar Lead IDCO Implantable Lead Location Right Atrium IDCO Implantable Lead Model 0292 IDCO Implantable Lead Serial Number [id number] IDCO Implantable Lead Restuarant Crew Worker [employer] [employer] IDCO Implantable Lead Implant Date IDCO [...] IDCO Lead Channel Pacing Threshold Measurement Method Operations Business Partner Manual IDCO Lead Channel Pacing Threshold Polarity [...] IDCO Lead Channel Pacing Threshold Measurement Method Operations Business Partner Manual IDCO Lead Channel Pacing Threshold Polarity [...] on filedocumented in this encounter Care Teams Collaborative Teacher Relationship Specialty Start Date End Date Dewayne Carrington MD PCP - General 09/02/16 documented as of this encounter
--- OUTSIDE RECORDS SUMMARY | 2024-05-09 16:19 | XMS_ITS | Encounter Summary ---
Author Organization [facility] [place] [address] Care Team Providers Care Pizza Hut Assistant Name Role Phone Dewayne Carrington MD Primary Care Provider [phone] Encounter Details Date Type Department Care Team (Late st Contact Info) Description 05/05/2019 Telephone Cardiology at [address] [phone] Daniela Lacy RN Social History Tobacco Use [...] to have a cardioversion on 05/13/19 at [facility]. Patient plans on continuing his cardiac care with Dr. Zabala up at [facility]. Daniela Lacy RN Ambulatory Cardiovascular Clinic General Team-Twan documented in this encounter Plan of Treatment Upcoming Encounters Date Type Department Care Team (Late st Contact Info) Description 06/15/2024 10:00 AM EST Hospital Encounter Non-[place]vasive [place] [address] Arrived documented as of this encounter Visit Diagnoses Not on filedocumented in this encounter Care Teams Pizza Hut Assistant Relationship Specialty Start Date End Date Dewayne Carrington MD PCP - General 09/02/16 documented as of this encounter
--- OUTSIDE RECORDS SUMMARY | 2024-05-09 16:19 | XMS_ITS | Encounter Summary ---
Author Organization [facility] [place] [address] Care Team Providers Care Photogrammetric Surveyor Name Role Phone Dewayne Carrington MD Primary Care Provider [phone] Encounter Details Date Type Department Care Team (Late st Contact Info) Description 06/21/2019 Telephone Cardiology at [address] [phone] Chante Robertson RN Social History [...] AM EST Hospital Encounter Non-Invasive [place] [phone] Arrived documented as of this encounter Visit Diagnoses Not on filedocumented in this encounter Care Teams Photogrammetric Surveyor Relationship Specialty Start Date End Date Dewayne Carrington MD PCP - General 09/02/16 documented as of this encounter
--- OUTSIDE RECORDS SUMMARY | 2024-05-09 16:19 | XMS_ITS | Encounter Summary ---
[place] [address] Care Team Providers Care Jackhammer Operator Name Role Phone Dewayne Carrington MD Primary Care Provider [phone] Encounter Details Date Type Department Care Team (Late st Contact Info) Description 10/26/2019 Orders Only Cardiology at [address] [phone] Social History Tobacco Use Types Packs/Day Years [...] AM EST Hospital Encounter [place] [address] Arrived documented as of this encounter Procedures Procedure Name Priority Date/Time Associated Diagnosis Comments CARDIAC DEVICE CHECK - REMOTE DEVICE INITIATED Routine 10/26/2019 12:42 AM EDT documented in this encounter Results * Cardiac device check - Remote Device Initiated (10/26/2019 12:42 AM EDT) Date Time Interrogation Session [id number] IDCO Type Interrogation Session Remote Device Initiated [facility] IDCO Battery Date Time of Measurements [id number] IDCO Battery Status Beginning of Service IDCO Battery Remaining Longevity 66 mo IDCO Battery Remaining Percentage 77 % IDCO Capacitor Last Charge Date Time IDCO Capacitor Charge Time 11.0 s IDCO Capacitor Charge Type Reformation IDCO Capacitor Last Charge Date Time [id number] IDCO Capacitor Charge Time 3.8 s IDCO [...] IDCO Episode Identifier IDCO Episode Date Time [id number] IDCO Episode Type Category VT IDCO Episode Vendor Type Category VT-1 IDCO Episode Type Induced Flag NO IDCO Episode Detection Interval Ventricular 357 ms IDCO Episode Duration 59 s IDCO Episode Detection And Therapy Details VT-1 No Therapy IDCO Episode Identifier IDCO Episode Date Time [id number] IDCO Episode Type Category VT IDCO Episode Vendor Type Category VT-1 IDCO Episode Type Induced Flag NO IDCO Episode Detection Interval Ventricular 357 ms IDCO Episode Duration 111 s IDCO Episode Detection And Therapy Details VT-1 No Therapy IDCO Episode Identifier IDCO Episode Date Time [id number] IDCO Episode Type Category VT IDCO Episode Vendor Type Category VT-1 IDCO Episode Type Induced Flag NO IDCO Episode Detection Interval Ventricular 370 ms IDCO Episode Duration 104 s IDCO Episode Detection And Therapy Details VT-1 No Therapy IDCO Episode Identifier IDCO Episode Date Time [id number] IDCO Episode Type Category VT IDCO Episode Vendor Type Category VT-1 IDCO Episode Type Induced Flag NO IDCO Episode Detection Interval Ventricular 380 ms IDCO Episode Duration 185 s IDCO Episode Detection And Therapy Details VT-1 No Therapy IDCO Episode Identifier IDCO Episode Date Time [id number] IDCO Episode Type Category VT IDCO Episode Vendor Type Category VT-1 IDCO Episode Type Induced Flag NO IDCO Episode Detection Interval Ventricular 375 ms IDCO Episode Duration 137 s IDCO Episode Detection And Therapy Details VT-1 No Therapy IDCO Episode Identifier IDCO Episode Date Time [id number] IDCO Episode Type Category VT IDCO Episode Vendor Type Category VT-1 IDCO Episode Type Induced Flag NO IDCO Episode Detection Interval Ventricular 353 ms IDCO Episode Duration 39 s IDCO Episode Detection And Therapy Details VT-1 ATPx1 IDCO Episode Identifier IDCO Episode Date Time [id number] IDCO Episode Type Category VT IDCO Episode Vendor Type Category VT-1 IDCO Episode Type Induced Flag NO IDCO Episode Detection Interval Ventricular 364 ms IDCO Episode Duration 82 s IDCO Episode Detection And Therapy Details VT-1 No Therapy IDCO Episode Identifier [id number] IDCO Episode Date Time [id number] IDCO Episode Type Category Other IDCO Episode [...] Detection And Therapy Details IDCO Episode Identifier [id number] IDCO Episode Date Time IDCO Episode Type [...] E162 IDCO Implantable Pulse Generator Serial Number [id number] IDCO Implantable Pulse Generator Baggagemaster Gamzee IDCO Implantable Pulse Generator Implant Date 20140110 IDCO Implantable Lead Model 4136 IDCO Implantable Lead Serial Number [id number] IDCO Implantable Lead Baggagemaster Guiddelio IDCO Implantable Lead Implant Date 20130421 IDCO Implantable Lead Polarity Type Bipolar Lead IDCO Implantable Lead Location Right Atrium IDCO Implantable Lead Model 0292 IDCO Implantable Lead Serial Number [id number] IDCO Implantable Lead Baggagemaster Gamzee IDCO Implantable Lead Implant Date IDCO Implantable [...] IDCO Lead Channel Pacing Threshold Measurement Method Machine Guide Base Winder Manual IDCO Lead Channel Pacing Threshold Polarity [...] IDCO Lead Channel Pacing Threshold Measurement Method Machine Guide Base Winder Manual IDCO Lead Channel Pacing Threshold Polarity [...] on filedocumented in this encounter Care Teams Jackhammer Operator Relationship Specialty Start Date End Date Dewayne Carrington MD PCP - General 09/02/16 documented as of this encounter
--- OUTSIDE RECORDS SUMMARY | 2024-05-09 16:20 | XMS_ITS | Encounter Summary ---
[place] [address] Care Team Providers Care Bible Reader Name Role Phone Dewayne Carrington MD Primary Care Provider [phone] Encounter Details Date Type Department Care Team (Late st Contact Info) Description 05/05/2019 Orders Only Cardiology at [address] [phone] Social History Tobacco Use Types Packs/Day Years [...] AM EST Hospital Encounter [place] [address] Arrived documented as of this encounter Procedures Procedure Name Priority Date/Time Associated Diagnosis Comments CARDIAC DEVICE CHECK - REMOTE SCHEDULED Routine 05/05/2019 12:41 AM EST documented in this encounter Results * Cardiac device check - Remote Scheduled (05/05/2019 12:41 AM EST) Date Time Interrogation Session [id number] IDCO Type Interrogation Session Remote Scheduled IDCO Clinic Name [facility] IDCO Battery Date Time of Measurements [id number] IDCO Battery Status Beginning of Service IDCO Battery Remaining Longevity 60 mo IDCO Battery Remaining Percentage 70 % IDCO Capacitor Last Charge Date Time IDCO Capacitor Charge Time 10.8 s IDCO Capacitor Charge Type Reformation IDCO Capacitor Last Charge Date Time [id number] IDCO Capacitor Charge Time 3.8 s IDCO [...] E162 IDCO Implantable Pulse Generator Serial Number [id number] IDCO Implantable Pulse Generator Director Career [place] [employer] IDCO Implantable Pulse Generator Implant Date 20140110 IDCO Implantable Lead Model 4136 IDCO Implantable Lead Serial Number [id number] IDCO Implantable Lead Director Career Guidant IDCO Implantable Lead Implant Date 20130421 IDCO Implantable Lead Polarity Type Bipolar Lead IDCO Implantable Lead Location Right Atrium IDCO Implantable Lead Model 0292 IDCO Implantable Lead Serial Number [id number] IDCO Implantable Lead Director Career [place] [employer] IDCO Implantable Lead Implant Date [...] IDCO Lead Channel Pacing Threshold Measurement Method Stone Carriage Operator Manual IDCO Lead Channel Pacing Threshold [...] IDCO Lead Channel Pacing Threshold Measurement Method Stone Carriage Operator Manual IDCO Lead Channel Pacing Threshold [...] on filedocumented in this encounter Care Teams Bible Reader Relationship Specialty Start Date End Date Dewayne Carrington MD PCP - General 09/02/16 documented as of this encounter
--- OUTSIDE RECORDS SUMMARY | 2024-05-09 16:20 | XMS_ITS | Encounter Summary ---
Author Organization [facility] Address [facility] [place] [address] Care Team Providers Care Master Planner Name Role Phone Dewayne Carrington MD Primary Care Provider [phone] Reason for Visit * Reason Onset Date Comments Questions 03/04/2018 Encounter Details Date Type Department Care Team (Late st Contact Info) Description 03/04/2018 [place] [phone] Honorio Vasquez MD [facility] [place] [address] Questions Social History Tobacco Use Types Packs/Day [...] - 03/05/2018 11:29 AM EST The MRI work environment safety inspector reviewed 's defibrillator information and determined that [...] Best number to contact Mr. Hendrix for [phone] documented in this encounter Plan of Treatment Upcoming Encounters Date Type Department Care Team (Late st Contact Info) Description 06/15/2024 10:00 AM EST Hospital Encounter Non-[place] [phone] Arrived documented as of this encounter Visit Diagnoses Not on filedocumented in this encounter Care Teams Master Planner Relationship Specialty Start Date End Date Dewayne Carrington MD PCP - General 09/02/16 documented as of this encounter
--- OUTSIDE RECORDS SUMMARY | 2024-05-09 16:20 | XMS_ITS | Encounter Summary ---
Author Organization [facility] Address [facility] [place] [address] Care Team Providers Care Coding Compliance Auditor Name Role Phone Dewayne Carrington MD Primary Care Provider [phone] Reason for Visit * Reason Comments Right Wrist Pain NXR, RIGHT WRIST GIANLUCA N - ?[facility] INJURY, [facility] * Consultation (Routine) - Closed Specialty Diagnoses / Procedures Referred By Rosa t Referred To Contact Orthopaedics Diagnoses pain in right wrist Homero Villegas MD [address] [place] [address] Scarlett Vasquez MD [facility] [place] [address] Referral ID Status Reason Start Date Expiration Date Visits Re quested Visits Authorized [id number] Closed 01/08/2018 01/08/2019 1 1 Encounter Details Date Type Department Care Team (Late st Contact Info) Description 02/17/2018 2:45 PM EDT Office Visit Orthopa[place] [address] Scarlett Vasquez MD [facility] [place] [address] Pain in right wrist Social History Tobacco [...] illness: Marquez Hendrix is a 67 y.o. [id number]-rqkfbger male with history of Afib on Xarelto, [...] 12/17/2011 Performed by Juwan Vyas MD at [facility] ??? PRO UPPER GI ENDOSCOPY, BIOPSY 12/17/2011 EGD WITH BIOPSY performed by JUWAN VYAS at [facility] Medications: ??? aspirin 81 mg [...] other significant pathology noted. Assessment/Plan: 67 y.o. [id number] male referred by Dr. Villegas for evaluation [...] He [place] his pacemaker [place] here [place] [facility], making his records readily available. In [...] st Contact Info) Description 06/15/2024 10:00 AM [facility] Hospital Encounter [place] [address] Arrived documented as of this encounter Visit [...] mg documented in this encounter Care Teams Coding Compliance Auditor Relationship Specialty Start Date End Date Dewayne Carrington MD PCP - General 09/02/16 documented as of this encounter
--- OUTSIDE RECORDS SUMMARY | 2024-05-09 16:20 | XMS_ITS | Encounter Summary ---
[place] [address] Care Team Providers Care Lock Tender Chief Operator Name Role Phone Dewayne Carrington MD Primary Care Provider [phone] Reason for Visit * Reason Comments Wound Check Encounter Details Date Type Department Care Team (Late st Contact Info) Description 03/04/2019 1:00 PM EST Office [place] [phone] Kelly Zheng RN Pressure injury of right [...] x 1.0 cm area none No wounds. Iyanbito, blanchable PHOTO Treatment: Analgesia: none administered prior [...] d/c the patient from our carein the [facility]. We will be happy to see [...] Beef, chicken, fish Beans, Lentils, peanut butter Khmer and regular yogurt Cheese, eggs ?? Boost, [...] 1 documented in this encounter Care Teams Lock Tender Chief Operator Relationship Specialty Start Date End Date Dewayne Carrington MD PCP - General 09/02/16 documented as of this encounter
--- OUTSIDE RECORDS SUMMARY | 2024-05-09 16:20 | XMS_ITS | Encounter Summary ---
Author Organization [facility] [place] [address] Care Team Providers Care Performing Arts Technicians Name Role Phone Dewayne Carrington MD Primary Care Provider [phone] Encounter Details Date Type Department Care Team (Late st Contact Info) Description 10/07/2017 Telephone Cardiology at [address] [phone] Ruben [place]enport Social History Tobacco Use Types [...] He stated he is being [facility] documented in this encounter Plan of Treatment Upcoming Encounters Date Type Department Care Team (Late st Contact Info) Description 06/15/2024 10:00 AM EST Hospital Encounter Non-[place] [phone] Arrived documented as of this encounter Visit Diagnoses Not on filedocumented in this encounter Care Teams Performing Arts Technicians Relationship Specialty Start Date End Date Dewayne Carrington MD PCP - General 09/02/16 documented as of this encounter
--- OUTSIDE RECORDS SUMMARY | 2024-05-09 16:20 | XMS_ITS | Encounter Summary ---
[place] [address] Care Team Providers Care Security Systems Administrator Name Role Phone Dewayne Carrington MD Primary Care Provider [phone] Encounter Details Date Type Department Care Team (Late st Contact Info) Description 01/20/2019 Orders Only Cardiology at [address] [phone] Social History Tobacco Use Types Packs/Day Years [...] AM EST Hospital Encounter Non-Invasive [place] [address] Arrived documented as of this encounter Procedures Procedure Name Priority Date/Time Associated Diagnosis Comments CARDIAC DEVICE CHECK - REMOTE SCHEDULED Routine 01/20/2019 12:43 AM EDT documented in this encounter Results * Cardiac device check - Remote Scheduled (01/20/2019 12:43 AM EDT) Date Time Interrogation Session [id number] IDCO Type Interrogation Session Remote Scheduled IDCO Clinic Name [facility] IDCO Battery Date Time of Measurements [id number] IDCO Battery Status Beginning of Service IDCO Battery Remaining Longevity 78 mo IDCO Battery Remaining Percentage 90 % IDCO Capacitor Last Charge Date Time IDCO Capacitor Charge Time 10.8 s IDCO Capacitor Charge Type Reformation IDCO Capacitor Last Charge Date Time [id number] IDCO Capacitor Charge Time 3.8 s IDCO Capacitor Charge Energy 21 J IDCO Capacitor Charge Type Shock IDCO Episode Identifier APM-33 IDCO Episode Date Time IDCO Episode Type Category Periodic EGM IDCO Episode Vendor Type Category APMRT IDCO Episode Detection And Therapy Details Presenting EGM IDCO Episode Identifier [id number] Episode Date Time IDCO Episode Type Category Other IDCO Episode Vendor Type Category XANDER IDCO Episode Detection Interval Ventricular 952 ms IDCO Episode Duration 55 s IDCO Episode Detection And Therapy Details IDCO Episode Identifier [id number] IDCO Episode Date Time IDCO Episode Type Category Other IDCO Episode Vendor Type Category XANDER IDCO Episode Detection Interval Ventricular 938 ms IDCO Episode Duration 54 s IDCO Episode Detection And Therapy Details IDCO Episode Identifier [id number] IDCO Episode Date Time IDCO Episode Type [...] IDCO Episode Identifier IDCO Episode Date Time [id number] IDCO Episode Type Category VT IDCO Episode Vendor Type Category NSVT IDCO Episode Type Induced Flag NO IDCO Episode Detection Interval Ventricular 373 ms IDCO Episode Duration 8 s IDCO Episode Detection And Therapy Details NonSustV IDCO Episode Identifier [id number] IDCO Episode Date Time [id number] IDCO Episode Type Category Other IDCO Episode Vendor Type Category XANDER IDCO Episode Detection Interval Ventricular 896 ms IDCO Episode Duration 53 s IDCO Episode Detection And Therapy Details Q IDCO Episode Identifier IDCO Episode Date Time [id number] IDCO Episode Type Category VT IDCO Episode Vendor Type Category NSVT IDCO Episode Type Induced Flag NO IDCO Episode Detection Interval Ventricular 397 ms IDCO Episode Duration 6 s IDCO Episode Detection And Therapy Details NonSustV IDCO Episode Identifier IDCO Episode Date Time [id number] IDCO Episode Type Category VT IDCO Episode Vendor Type Category NSVT IDCO Episode Type Induced Flag NO IDCO Episode Detection Interval Ventricular 400 ms IDCO Episode Duration 11 s IDCO Episode Detection And Therapy Details NonSustV IDCO Episode Identifier IDCO Episode Date Time [id number] IDCO Episode Type Category VT IDCO Episode Vendor Type Category NSVT IDCO Episode Type Induced Flag NO IDCO Episode Detection Interval Ventricular 395 ms IDCO Episode Duration 12 s IDCO Episode Detection And Therapy Details NonSustV IDCO Episode Identifier [id number] IDCO Episode Date Time [id number] IDCO Episode Type Category Other IDCO Episode Vendor Type Category XANDER IDCO Episode Detection Interval Ventricular 896 ms IDCO Episode Duration 55 s IDCO Episode Detection And Therapy Details Q IDCO Episode Identifier [id number] IDCO Episode Date Time [id number] IDCO Episode Type Category Other IDCO Episode Vendor Type Category XANDER IDCO Episode Detection Interval Ventricular 938 ms IDCO Episode Duration 54 s IDCO Episode Detection And Therapy Details IDCO Episode Identifier [id number] IDCO Episode Date Time [id number] IDCO Episode Type Category Other IDCO Episode Vendor Type Category XANDER IDCO Episode Detection Interval Ventricular 1,034 ms IDCO Episode Duration 57 s IDCO Episode Detection And Therapy Details IDCO Episode Identifier [id number] IDCO Episode Date Time IDCO Episode Type Category Other IDCO Episode Vendor Type Category XANDER IDCO Episode Detection Interval Ventricular 909 ms IDCO Episode Duration 54 s IDCO Episode Detection And Therapy Details Q IDCO Episode Identifier [id number] IDCO Episode Date Time [id number] IDCO Episode Type Category Other IDCO Episode Vendor Type Category XANDER IDCO Episode Detection Interval Ventricular 1,017 ms IDCO Episode Duration 52 s IDCO Episode Detection And Therapy Details IDCO Episode Identifier [id number] IDCO Episode Date Time [id number] IDCO Episode Type Category Other IDCO Episode [...] E162 IDCO Implantable Pulse Generator Serial Number [id number] IDCO Implantable Pulse Generator Community Facilitator [employer] IDCO Implantable Pulse Generator Implant Date 20140110 IDCO Implantable Lead Model 4136 IDCO Implantable Lead Serial Number [id number] IDCO Implantable Lead Community Facilitator Guidant IDCO Implantable Lead Implant Date 20130421 IDCO Implantable Lead Polarity Type Bipolar Lead IDCO Implantable Lead Location Right Atrium IDCO Implantable Lead Model 0292 IDCO Implantable Lead Serial Number [id number] IDCO Implantable Lead Community Facilitator [employer] IDCO Implantable Lead Implant Date IDCO [...] IDCO Lead Channel Pacing Threshold Measurement Method Tube Knitter Manual IDCO Lead Channel Pacing Threshold Polarity [...] IDCO Lead Channel Pacing Threshold Measurement Method Tube Knitter Manual IDCO Lead Channel Pacing Threshold Polarity [...] on filedocumented in this encounter Care Teams Security Systems Administrator Relationship Specialty Start Date End Date Dewayne Carrington MD PCP - General 09/02/16 documented as of this encounter
--- OUTSIDE RECORDS SUMMARY | 2024-05-09 16:20 | XMS_ITS | Encounter Summary ---
Author Organization [facility] Address [facility] [address] Care Team Providers Care Biomass Production Manager Name Role Phone Dewayne Carrington MD Primary Care Provider [phone] Reason for Visit * Reason Comments Follow-up Right wrist pain discuss xrays and US results left wrist painful as well Encounter Details Date Type Department Care Team (Late st Contact Info) Description 12/22/2018 2:30 PM EDT Office [place] [address] Scarlett Vasquez MD [facility] [address] [place]OPA[place] [address] Pain in left wrist; Pain in right [...] to rheumatology for further evaluation there. The automation engineering manager did not find a clear explanation for [...] WITH BIOPSY performed by KYRA VYAS at [facility] Allergies: Allergies Allergen Reactions ??? [...] file Gets together: Not on file Attends sabianist service: Not on file Active member of [...] the patient's orthopedist closer to home in [place] to see if he can help schedule [...] st Contact Info) Description 06/15/2024 10:00 AM [facility] Hospital Encounter Non-Invasive [place] [address] Arrived documented as of this encounter Visit Diagnoses Diagnosis Pain in left wrist Pain in joint, forearm Pain in right wrist Pain in joint, forearm documented in this encounter Care Teams Biomass Production Manager Relationship Specialty Start Date End Date Dewayne Carrington MD PCP - General 09/02/16 documented as of this encounter
--- OUTSIDE RECORDS SUMMARY | 2024-05-09 16:20 | XMS_ITS | Encounter Summary ---
Author Organization Formerly [facility] Address [facility] [place] [address] Care Team Providers Care Buckle Attaching Machine Operator Name Role Phone Dewayne Carrington MD Primary Care Provider [phone] Encounter Details Date Type Department Care Team (Latest Contact Info) Description 12/31/2017 - 12/31/2017 12:04 AM EDT Hospital Encounter Radiology Library at [facility] [place] [phone] Honorio Vasquez MD [facility] [place] [address] Discharge Disposition: Home Social History Tobacco Use [...] EST Hospital Encounter Non-Invasive [place] [address] Arrived documented as of this [...] Vasquez MD IMG FILM LIBRARY ORD ERABLES [place], [place] documented in this encounter Visit Diagnoses Not on filedocumented in this encounter Care Teams Buckle Attaching Machine Operator Relationship Specialty Start Date End Date Dewayne Carrington MD PCP - General 09/02/16 documented as of this encounter
--- OUTSIDE RECORDS SUMMARY | 2024-05-09 16:20 | XMS_ITS | Encounter Summary ---
Author Organization [facility] Address [facility] [place] [address] Care Team Providers Care Telephone Order Clerk Room Service Name Role Phone Dewayne Carrington MD Primary Care Provider [phone] Reason for Visit * Reason Comments Right Wrist Pain Encounter Details Date Type Department Care Team (Late st Contact Info) Description 07/14/2018 3:30 PM EDT Office [place] [address] Honorio Vasquez MD [facility] [place] [address] Pain in right wrist Social History Tobacco [...] so. I am also checking with his sounding device operator to see if his defibrillator is MRI [...] AM EST Hospital Encounter Non-[place] [address] Arrived documented as of this encounter Procedures [...] PM EDT) DNA Ab (DS) Neg Neg [facility] Blood specimen (specimen) 07/14/2018 4:16 PM EDT 07/15/2018 8:03 AM EDT Narrative Resulting Agency Comment Spec In Lab Honorio Vasquez MD LAB SEND OUT ORDERAB LES [facility] [address] * (ABNORMAL) Differential, Automated (07/14/2018 4:16 PM EDT) Neutrophil % 54.5 % [facility] Neutrophil Absolute 4.06 1.70 - 6.10 x10(3)/[facility] Lymph % 29.8 % [facility] Lymphocytes Abs 2.2 0.9 - 3.2 x10(3)/[facility] Monocyte % 6.2 % [facility] Monocyte Abs 0.5 0.3 - 0.9 x10(3)/[facility] Eos % 8.5 % [facility] Eosinophils Abs 0.6(H) 0.0 - 0.4 x10(3)/[facility] Basophil % 0.7 % [facility] Baso Absolute 0.0 0.0 - 0.1 x10(3)/[facility] Immature Gran % 0.30 % [facility] Comment: Immature granulocytes(IG's)percentage and absolute count will include metamyelocytes, myelocytes, and promyelocytes. Blood smears from CBCs yielding IG's will be scanned manually for concordance. If this scan disagrees with the automated IG or if promyelocytes are noted, a manual differential will be performed. Immature Gran Absolute 0.02 0.00 - 0.04 x10(3)/[facility] Blood specimen (specimen) 07/14/2018 4:16 PM EDT 07/14/2018 4:30 PM EDT Narrative Resulting Agency Comment Spec In Lab Honorio Vasquez MD HEMATOLOGY ORDERABLE S [facility] [place] [address] * (ABNORMAL) Hemogram (07/14/2018 4:16 PM EDT) White Blood Cell 7.4 4.0 - 9.5 x10(3)/[facility] Red Blood Cell 5.02 4.58 - 5.54 x10(6)/mc L [facility] Hemoglobin 12.3(L) 13.7 - 16.5 gm/dL [facility] Hematocrit 40.1(L) 40.5 - 48.5 % [facility] Mean Cell Volume 79.9(L) 82.9 - 93.1 fL [facility] Mean Cell Hemoglobin 24.5(L) 27.5 - 32.1 pg [facility] Mean Cell Hemoglobin Concentration 30.7(L) 32.0 - 35.7 gm/dL [facility] Platelet 240 145 - 357 x10(3)/mc L [facility] RDW Standard Deviation 45.3(H) 36.0 - 45.0 [facility] RDW coefficient of variation 15.7(H) 11.4 - 13.8 % [facility] Mean Platelet Volume 9.4 7.6 - 12.9 [facility] NRBC% auto 0.0 % [facility] NRBC Absolute 0.000 0.000 - 0.000 x10(3)/mc L [facility] Blood specimen (specimen) 07/14/2018 4:16 PM EDT 07/14/2018 4:30 PM EDT Narrative Resulting Agency Comment Spec In Lab Honorio Vasquez MD HEMATOLOGY ORDERABLE S [facility] [place] [address] * (ABNORMAL) SONAL (LEB/CGP) (07/14/2018 4:16 PM EDT) SONAL Pos at 1:80(A) Neg [facility] Comment: Titer seen with Speckled pattern. ??Is suggestive of autoantibodies to Sm, MARKETING LIAISON, SCL-70, or SS-B. Blood specimen (specimen) 07/14/2018 4:16 PM EDT 07/15/2018 8:03 AM EDT Narrative Resulting Agency Comment Spec In Lab Honorio Vasquez MD LAB SEND OUT ORDERAB LES Performing Organization Address [facility] [[email or web address]] Co de Phone Number [facility] [place] [address] * Cyclic Citrullinated Peptide (07/14/2018 4:16 PM EDT) Cyclic Citrulline Peptide <0.5 <=4.9 unit/mL [facility] Comment: An updated CCP assay reagent was implemented 07/31/16. Please note the modified reference interval. Blood specimen (specimen) 07/14/2018 4:16 PM EDT 07/14/2018 4:30 PM EDT Narrative Resulting Agency Comment Spec In Lab Honorio Vasquez MD CHEMISTRY ORDERABLES Performing Organization Address [facility] Co de Phone Number [facility] [place] [address] * CRP, acute inflammation (07/14/2018 4:16 PM EDT) C-Reactive Protein 0.4 <=4.9 mg/L [facility] Blood specimen (specimen) 07/14/2018 4:16 PM EDT 07/14/2018 4:30 PM EDT Narrative Resulting Agency Comment Spec In Lab Honorio Vasquez MD CHEMISTRY ORDERABLES Performing Organization Address [facility] [[email or web address]] Co de Phone Number [facility] [place] [address] documented in this encounter Visit Diagnoses Diagnosis Pain in right wrist Pain in joint, forearm documented in this encounter Care Teams Telephone Order Clerk Room Service Relationship Specialty Start Date End Date Dewayne Carrington MD PCP - General 09/02/16 documented as of this encounter
--- OUTSIDE RECORDS SUMMARY | 2024-05-09 16:20 | XMS_ITS | Encounter Summary ---
[place] [address] Care Team Providers Care Congressional Representative Name Role Phone Dewayne Carrington MD Primary Care Provider [phone] Encounter Details Date Type Department Care Team ([facility] Contact Info) Description 01/31/2019 External Results Cardiology at [address] [phone] Dewayne Carrington MD [address] [place] [phone] Social History Tobacco Use Types Packs/Day Years [...] AM EST Hospital Encounter Non-[place] [address] Arrived documented as of this encounter Procedures Procedure Name Priority Date/Time Associated Diagnosis Comments EP DEVICE SCAN Routine 01/13/2019 documented in this encounter Results * Scan Doc: EP Device (01/13/2019) Anatomical Region Laterality Modality Other Dewayne Carrington MD MEDIA MGR SCAN EXT O RDR/RSLT documented in this encounter Visit Diagnoses Not on filedocumented in this encounter Care Teams Congressional Representative Relationship Specialty Start Date End Date Dewayne Carrington MD PCP - General 09/02/16 documented as of this encounter
--- OUTSIDE RECORDS SUMMARY | 2024-05-09 16:20 | XMS_ITS | Encounter Summary ---
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 Using vaping pen for about 4 [...] Phalen's test negative. Full fist, claw, good signal constructor. NO MCP compression tenderness. 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
--- OUTSIDE RECORDS SUMMARY | 2024-05-09 16:20 | XMS_ITS | Encounter Summary ---
Author Organization [facility] Address [facility] [place] [address] Care Team Providers Care Van Loader Name Role Phone Dewayne Carrington MD Primary Care Provider Encounter Details Date Type Department Care Team (Latest Contact Info) Description 12/31/2017 12:05 AM EDT - 12/31/2017 11:59 PM EDT Hospital Encounter Radiology Library at [facility] [place] [address] Honorio Vasquez MD [facility] [address] Discharge Disposition: Home Social History Tobacco Use [...] AM EST Hospital Encounter Non-[place]vasive [place] [address] Arrived documented as of this [...] MD IMG FILM LIBRARY ORD ERABLES [place], [place] documented in this encounter Visit Diagnoses Not on filedocumented in this encounter Care Teams Van Loader Relationship Specialty Start Date End Date Dewayne Carrington MD PCP - General 09/02/16 documented as of this encounter
--- OUTSIDE RECORDS SUMMARY | 2024-05-09 16:20 | XMS_ITS | Encounter Summary ---
[place] [address] Care Team Providers Care Drafter Seismograph Name Role Phone Dewayne Carrington MD Primary Care Provider [phone] Encounter Details Date Type Department Care Team (Late st Contact Info) Description 01/13/2019 Orders Only Cardiology at [address] [phone] Social History Tobacco Use Types Packs/Day Years [...] AM EST Hospital Encounter [place] [address] Arrived documented as of this encounter Procedures Procedure Name Priority Date/Time Associated Diagnosis Comments CARDIAC DEVICE CHECK - REMOTE PATIENT INITIATED Routine 01/13/2019 4:20 PM EDT documented in this encounter Results * Cardiac device check - Remote Patient Initiated (01/13/2019 4:20 PM EDT) Date Time Interrogation Session [id number] IDCO Type Interrogation Session Remote Patient Initiated IDCO Clinic Name [facility] IDCO Battery Date Time of Measurements [id number] IDCO Battery Status Beginning of Service IDCO Battery Remaining Longevity 78 mo IDCO Battery Remaining Percentage 92 % IDCO Capacitor Last Charge Date Time IDCO Capacitor Charge Time 10.8 s IDCO Capacitor Charge Type Reformation IDCO Capacitor Last Charge Date Time [id number] IDCO Capacitor Charge Time 3.8 s IDCO Capacitor Charge Energy 21 J IDCO Capacitor Charge Type Shock IDCO Episode Identifier [id number] IDCO Episode Date Time [id number] IDCO Episode Type Category Periodic EGM IDCO Episode Vendor Type Category APMRT IDCO Episode Detection And Therapy Details Presenting EGM IDCO Episode Identifier [id number] IDCO Episode Date Time [id number] IDCO Episode Type Category Other IDCO Episode Vendor Type Category XANDER IDCO Episode Detection Interval Ventricular 938 ms IDCO Episode Duration 59 s IDCO Episode Detection And Therapy Details IDCO Episode Identifier [facility]-[id number] IDCO Episode Date Time [id number] IDCO Episode Type Category Other IDCO Episode Vendor Type Category XANDER IDCO Episode Detection Interval Ventricular 1,017 ms IDCO Episode Duration 62 s IDCO Episode Detection And Therapy Details IDCO Episode Identifier [id number] IDCO Episode Date Time [id number] IDCO Episode Type Category Other IDCO Episode Vendor Type Category XANDER IDCO Episode Detection Interval Ventricular 1,053 ms IDCO Episode Duration 57 s IDCO Episode Detection And Therapy Details IDCO Episode Identifier [facility]-[id number] IDCO Episode Date Time [id number] IDCO Episode Type Category Other IDCO Episode Vendor Type Category XANDER IDCO Episode Detection Interval Ventricular 968 ms IDCO Episode Duration 57 s IDCO Episode Detection And Therapy Details IDCO Episode Identifier [id number] IDCO Episode Date Time [id number] IDCO Episode Type Category Other IDCO Episode Vendor Type Category XANDER IDCO Episode Detection Interval Ventricular 923 ms IDCO Episode Duration 56 s IDCO Episode Detection And Therapy Details IDCO Episode Identifier [id number] IDCO Episode Date Time [id number] IDCO Episode Type Category Other IDCO Episode Vendor Type Category XANDER IDCO Episode Detection Interval Ventricular 968 ms IDCO Episode Duration 58 s IDCO Episode Detection And Therapy Details RYQ IDCO Episode Identifier [id number] IDCO Episode Date Time IDCO Episode Type Category Other IDCO Episode Vendor Type Category XANDER IDCO Episode Detection Interval Ventricular 1,034 ms IDCO Episode Duration 54 s IDCO Episode Detection And Therapy Details RYQ IDCO Episode Identifier [id number] IDCO Episode Date Time IDCO Episode Type Category Other IDCO Episode Vendor Type Category XANDER IDCO Episode Detection Interval Ventricular 952 ms IDCO Episode Duration 58 s IDCO Episode Detection And Therapy Details Q IDCO Episode Identifier [id number] IDCO Episode Date Time IDCO Episode Type Category Other IDCO Episode Vendor Type Category XANDER IDCO Episode Detection Interval Ventricular 1,000 ms IDCO Episode Duration 57 s IDCO Episode Detection And Therapy Details Q IDCO Episode Identifier [id number] IDCO Episode Date Time IDCO Episode Type [...] Episode Identifier ATR-254 IDCO Episode Date Time [id number] IDCO Episode Type Category AT/AF IDCO Episode Vendor Type Category ATR IDCO Episode Detection Interval Atrial 287 ms IDCO Episode Duration 34 s IDCO Episode Detection And Therapy Details ATR IDCO Episode Identifier ATR-253 IDCO Episode Date Time [id number] IDCO Episode Type Category AT/AF IDCO Episode [...] Episode Identifier ATR-250 IDCO Episode Date Time [id number] IDCO Episode Type Category AT/AF IDCO Episode Vendor Type Category ATR IDCO Episode Detection Interval Atrial 271 ms IDCO Episode Duration 8 s IDCO Episode Detection And Therapy Details ATR IDCO Episode Identifier ATR-249 IDCO Episode Date Time [id number] IDCO Episode Type Category AT/AF IDCO Episode [...] IDCO Episode Statistic Recent Date Time Start [id number] IDCO Episode Statistic Recent Date Time End [...] E162 IDCO Implantable Pulse Generator Serial Number [id number] IDCO Implantable Pulse Generator Coupon Manifest Clerk [place] [employer] IDCO Implantable Pulse Generator Implant Date 20140110 IDCO Implantable Lead Model 4136 IDCO Implantable Lead Serial Number [id number] IDCO Implantable Lead Coupon Manifest Clerk Guidant IDCO Implantable Lead Implant Date 20130421 IDCO Implantable Lead Polarity Type Bipolar Lead IDCO Implantable Lead Location Right Atrium IDCO Implantable Lead Model 0292 IDCO Implantable Lead Serial Number [id number] IDCO Implantable Lead Coupon Manifest Clerk [place] [employer] IDCO Implantable Lead Implant Date IDCO [...] IDCO Lead Channel Pacing Threshold Measurement Method Kitchen Work Supervisor Manual IDCO Lead Channel Pacing Threshold [...] IDCO Lead Channel Pacing Threshold Measurement Method Kitchen Work Supervisor Manual IDCO Lead Channel Pacing Threshold [...] filedocumented in this encounter Care Teams Drafter Seismograph Relationship Specialty Start Date End Date Dewayne Carrington MD PCP - General 09/02/16 documented as of this encounter
--- OUTSIDE RECORDS SUMMARY | 2024-05-09 16:20 | XMS_ITS | Encounter Summary ---
Author Organization [facility] [place] [address] Care Team Providers Care Pressure Controller Name Role Phone Dewayne Carrington MD Primary Care Provider [phone] Encounter Details Date Type Department Care Team (Late st Contact Info) Description 11/08/2018 11:08 AM EDT - 11/08/2018 11:59 PM EDT Hospital Encounter XRay at [address] [place] [address] Yamile Pimentel, [facility] [place] [address] Pain in left wrist Discharge Disposition: Home [...] AM EST Hospital Encounter Non-Invasive [place] [address] Arrived documented as of this encounter Procedures [...] below. ? Electronically signed by: Derrell Lynn [facility] ([phone]), at 11/08/2018 1:47 PM Narrative 11/08/2018 1:47 [...] number below. Electronically signed by: Derrell Lynn [facility]([phone]), at 11/08/2018 1:47 PM Yamile Gena Corderoew [...] below. ? Electronically signed by: Derrell Lynn [facility] ([phone]), at 11/08/2018 1:41 PM Narrative 11/08/2018 1:41 [...] below. Yamile Pimentel DO IMG DX ORDERABLES documented in this encounter Visit Diagnoses Diagnosis Pain in left wrist Pain in joint, forearm documented in this encounter Care Teams Pressure Controller Relationship Specialty Start Date End Date Dewayne Carrington MD PCP - General 09/02/16 documented as of this encounter
--- OUTSIDE RECORDS SUMMARY | 2024-05-09 16:20 | XMS_ITS | Encounter Summary ---
Author Organization [facility] [place] [address] Care Team Providers Care Settlement Clerk Name Role Phone Dewayne Carrington MD Primary Care Provider [phone] Reason for Visit * Reason Onset Date Comments Other 05/02/2019 symptom update Encounter Details Date Type Department Care Team ([facility] st Contact Info) Description 05/02/2019 Telephone Cardiology at [address] [phone] Vickie Zarco, RN Other (symptom update ) [...] Self as he now sees Dr Zabala [facility]. He has noted increased episodes of afib over this past week or so,ongoing headaches and fatigue . Recent increased emotional stress(family and work). States B/P has been lower than normal and heart rate 56-64. Taking fluids ok,instructed in importance of this. States he was recently assessed by his PCP,no changes were made. Instructed Pato to contact Dr Zabala' office in [place] today to discuss need for assessment,he is agreeable to this and will seek urgent /emergent care should his symptoms worsen/change . This RN will contact Pato tomorrow 05/03 ,making sure he was able to reach Cardiology in [facility]. Pato is agreeable to this ,appreciative our care. Forward to Dr Zabala as update. Update 05/03,call to Pato voice message left requesting a return call re: was he able to secure an office visit with Dr Zabala in [place]. Await return call. Return call from Pato,states [...] AM EST Hospital Encounter [place] [address] Arrived documented as of this encounter Visit Diagnoses Not on filedocumented in this encounter Care Teams Settlement Clerk Relationship Specialty Start Date End Date Dewayne Carrington MD PCP - General 09/02/16 documented as of this encounter
--- OUTSIDE RECORDS SUMMARY | 2024-05-09 16:20 | XMS_ITS | Encounter Summary ---
Author Organization [facility] [place] [address] Care Team Providers Care Field Reporter Name Role Phone Dewayne Carrington MD Primary Care Provider [phone] Encounter Details Date Type Department Care Team (Late st Contact Info) Description 11/08/2018 10:30 AM EDT Procedure [place] [address] Yamile Pimentel, [facility] [place] [address] Pain in left wrist; Degenerative tear of [...] Images are available on the Rheumatology Image Carpenter/Labor Archive. Images of the left Wrist demonstrate [...] st Contact Info) Description 06/15/2024 10:00 AM [facility] Hospital Encounter Non-Invasive [place] [address] Arrived documented as of this encounter Results [...] below. ? Electronically signed by: Derrell Lynn [facility] ([phone]), at 11/08/2018 1:47 PM Narrative 11/08/2018 1:47 [...] report, please contact the number below. Yamile Gena Pimentel DO IMG DX ORDERABLES [...] below. ? Electronically signed by: Derrell Lynn [facility] ([phone]), at 11/08/2018 1:41 PM Narrative 11/08/2018 1:41 [...] forearm documented in this encounter Care Teams Field Reporter Relationship Specialty Start Date End Date Dewayne Carrington MD PCP - General 09/02/16 documented as of this encounter
--- OUTSIDE RECORDS SUMMARY | 2024-05-09 16:20 | XMS_ITS | Encounter Summary ---
[facility] [place] [address] Care Team Providers Care Green Building Materials Designer Name Role Phone Dewayne Carrington MD Primary Care Provider [phone] Encounter Details Date Type Department Care Team (Late st Contact Info) Description 02/07/2019 Telephone Cardiology at [address] [phone] [place] LNA Social History Tobacco Use [...] Zarate LNA - 02/07/2019 11:50 AM EDT [facility] Visit Date - 09/03/2018 Medications reviewed since appointment at [facility]. I did not change medication. documented in this encounter Plan of Treatment Upcoming Encounters Date Type Department Care Team (Late st Contact Info) Description 06/15/2024 10:00 AM EST Hospital Encounter [place] [phone] Arrived documented as of this encounter Visit Diagnoses Not on filedocumented in this encounter Care Teams Green Building Materials Designer Relationship Specialty Start Date End Date Dewayne Carrington MD PCP - General 09/02/16 documented as of this encounter
--- OUTSIDE RECORDS SUMMARY | 2024-05-09 16:20 | XMS_ITS | Encounter Summary ---
[place] [address] Care Team Providers Care Gas Station Supervisor Name Role Phone Dewayne Carrington MD Primary Care Provider [phone] Encounter Details Date Type Department Care Team (Late st Contact Info) Description 05/01/2019 Orders Only Cardiology at [address] [phone] Social History Tobacco Use Types Packs/Day Years [...] AM EST Hospital Encounter Non[place] [address] Arrived documented as of this encounter Procedures Procedure Name Priority Date/Time Associated Diagnosis Comments CARDIAC DEVICE CHECK - REMOTE DEVICE INITIATED Routine 05/01/2019 12:41 AM EST documented in this encounter Results * Cardiac device check - Remote Device Initiated (05/01/2019 12:41 AM EST) Date Time Interrogation Session [id number] IDCO Type Interrogation Session Remote Device Initiated IDCO Clinic Name [facility] IDCO Battery Date Time of Measurements [id number] IDCO Battery Status Beginning of Service IDCO Battery Remaining Longevity 72 mo IDCO Battery Remaining Percentage 82 % IDCO Capacitor Last Charge Date Time IDCO Capacitor Charge Time 10.8 s IDCO Capacitor Charge Type Reformation IDCO Capacitor Last Charge Date Time [id number] IDCO Capacitor Charge Time 3.8 s IDCO [...] And Therapy Details ATR IDCO Episode Identifier [id number] IDCO Episode Date Time IDCO Episode Type Category Other IDCO Episode Vendor Type Category XANDER IDCO Episode Detection Interval Ventricular 909 ms IDCO Episode Duration 54 s IDCO Episode Detection And Therapy Details Q IDCO Episode Identifier [id number] IDCO Episode Date Time IDCO Episode Type Category Other IDCO Episode Vendor Type Category XANDER IDCO Episode Detection Interval Ventricular 909 ms IDCO Episode Duration 53 s IDCO Episode Detection And Therapy Details Q IDCO Episode Identifier [id number] IDCO Episode Date Time IDCO Episode Type Category Other IDCO Episode Vendor Type Category XANDER IDCO Episode Detection Interval Ventricular 909 ms IDCO Episode Duration 55 s IDCO Episode Detection And Therapy Details IDCO Episode Identifier [id number] IDCO Episode Date Time IDCO Episode Type Category Other IDCO Episode Vendor Type Category XANDER IDCO Episode Detection Interval Ventricular 909 ms IDCO Episode Duration 53 s IDCO Episode Detection And Therapy Details IDCO Episode Identifier [id number] IDCO Episode Date Time IDCO Episode Type Category Other IDCO Episode Vendor Type Category XANDER IDCO Episode Detection Interval Ventricular 923 ms IDCO Episode Duration 53 s IDCO Episode Detection And Therapy Details IDCO Episode Identifier [id number] IDCO Episode Date Time IDCO Episode Type Category Other IDCO Episode Vendor Type Category XANDER IDCO Episode Detection Interval Ventricular 984 ms IDCO Episode Duration 57 s IDCO Episode Detection And Therapy Details IDCO Episode Identifier [id number] IDCO Episode Date Time IDCO Episode Type Category Other IDCO Episode Vendor Type Category XANDER IDCO Episode Detection Interval Ventricular 1,034 ms IDCO Episode Duration 61 s IDCO Episode Detection And Therapy Details IDCO Episode Identifier [id number] IDCO Episode Date Time IDCO Episode Type Category Other IDCO Episode Vendor Type Category XANDER IDCO Episode Detection Interval Ventricular 968 ms IDCO Episode Duration 109 s IDCO Episode Detection And Therapy Details IDCO Episode Identifier [id number] IDCO Episode Date Time IDCO Episode Type Category Other IDCO Episode Vendor Type Category XANDER IDCO Episode Detection Interval Ventricular 952 ms IDCO Episode Duration 55 s IDCO Episode Detection And Therapy Details IDCO Episode Identifier [id number] IDCO Episode Date Time [id number] IDCO Episode Type Category Other IDCO Episode Vendor Type Category XANDER IDCO Episode Detection Interval Ventricular 923 ms IDCO Episode Duration 56 s IDCO Episode Detection [facility] ID[facility] Episode Identifier ATR-272 IDCO Episode Date Time [id number] IDCO Episode Type Category AT/AF IDCO Episode Vendor Type Category ATR IDCO Episode Detection Interval Atrial 247 ms IDCO Episode Duration 39 s IDCO Episode Detection And Therapy Details ATR IDCO Episode Identifier ATR-271 IDCO Episode Date Time [id number] IDCO Episode Type Category AT/AF IDCO Episode Vendor Type Category ATR IDCO Episode Detection Interval Atrial 870 ms IDCO Episode Duration 3 s IDCO Episode Detection And Therapy Details ATR IDCO Episode Identifier ATR-270 IDCO Episode Date Time [id number] IDCO Episode Type Category AT/AF IDCO Episode Vendor Type Category ATR IDCO Episode Detection Interval Atrial 230 ms IDCO Episode Duration 34,096 s IDCO Episode Detection And Therapy Details ATR IDCO Episode Identifier ATR-269 IDCO Episode Date Time [id number] IDCO Episode Type Category AT/AF IDCO Episode Vendor Type Category ATR IDCO Episode Detection Interval Atrial 232 ms IDCO Episode Duration 16 s IDCO Episode Detection And Therapy Details ATR IDCO Episode Identifier ATR-268 IDCO Episode Date Time [id number] IDCO Episode Type Category AT/AF IDCO Episode Vendor Type Category ATR IDCO Episode Detection Interval Atrial 241 ms IDCO Episode Duration 24,555 s IDCO Episode Detection And Therapy Details ATR IDCO Episode Identifier ATR-267 IDCO Episode Date Time [id number] IDCO Episode Type Category AT/AF IDCO Episode Vendor Type Category ATR IDCO Episode Detection Interval Atrial 496 ms IDCO Episode Duration 4 s IDCO Episode Detection And Therapy Details ATR IDCO Episode Identifier ATR-266 IDCO Episode Date Time [id number] IDCO Episode Type Category AT/AF IDCO Episode Vendor Type Category ATR IDCO Episode Detection Interval Atrial 273 ms IDCO Episode Duration 73 s IDCO Episode Detection And Therapy Details ATR IDCO Episode Identifier ATR-265 IDCO Episode Date Time [id number] IDCO Episode Type Category AT/AF IDCO Episode [...] E162 IDCO Implantable Pulse Generator Serial Number [id number] IDCO Implantable Pulse Generator Agricultural Equipment Salesperson [place] [employer] IDCO Implantable Pulse Generator Implant Date 20140110 IDCO Implantable Lead Model 4136 IDCO Implantable Lead Serial Number [id number] IDCO Implantable Lead Agricultural Equipment Salesperson Guidant IDCO Implantable Lead Implant Date 20130421 IDCO Implantable Lead Polarity Type Bipolar Lead IDCO Implantable Lead Location Right Atrium IDCO Implantable Lead Model 0292 IDCO Implantable Lead Serial Number [id number] IDCO Implantable Lead Agricultural Equipment Salesperson [place] [employer] IDCO Implantable Lead Implant Date 381453 IDCO Implantable Lead Location Right Ventricle IDCO Lead Channel Measurements Date and Time Start 20180408 IDCO Lead Channel Measurements Date and Time End 20190430 IDCO Lead Channel Sensing Intrinsic Amplitude Mean 3.1 mV IDCO Lead Channel Sensing Polarity Bipolar IDCO Lead Channel Pacing Threshold Amplitude 0.7 V IDCO Lead Channel Pacing Threshold Pulse Width 0.5 ms IDCO Lead Channel Pacing Threshold Measurement Method Tactical Debriefer Officer Manual IDCO Lead Channel Pacing Threshold Polarity [...] IDCO Lead Channel Pacing Threshold Measurement Method Tactical Debriefer Officer Manual IDCO Lead Channel Pacing Threshold Polarity [...]
--- OUTSIDE RECORDS SUMMARY | 2024-05-09 16:20 | XMS_ITS | Encounter Summary ---
[place] [address] Care Team Providers Care Service Transformer Repair Supervisor Name Role Phone Dewayne Carrington MD Primary Care Provider [phone] Reason for Referral * Consultation (Routine) - Closed Specialty Diagnoses / Procedures Referred By Contac t Referred To Contact Rheumatology Diagnoses Pain in right wrist Honorio Vasquez MD [facility] [place] [address] [facility] [address] [place] [phone] Referral ID Status Reason Start Date Expiration Date V isits Requested Visits Authorized [id number] Closed Consult, Test & Treat 07/19/2018 07/19/2019 1 1 Encounter Details Date Type Department Care Team (Late st Contact Info) Description 07/19/2018 8:00 AM EDT [place] [phone] Honorio Vasquez MD [facility] [place] [address] Social History Tobacco Use Types [...] message with Marquez Hendrix regarding his positive SONLA. I will make a referral for him [...] [facility] Hospital Encounter [place] [address] Arrived Scheduled Referrals Name Type Priority Associated Diagnoses Order Schedule Referral to Rheumatology Outpatient Referral Routine Pain in right wrist Ordered: 07/19/2018 documented as of this encounter Visit Diagnoses Diagnosis Pain in right wrist Pain in joint, forearm documented in this encounter Care Teams Service Transformer Repair Supervisor Relationship Specialty Start Date End Date Dewayne Carrington MD PCP - General 09/02/16 documented as of this encounter
--- OUTSIDE RECORDS SUMMARY | 2024-05-09 16:20 | XMS_ITS | Encounter Summary ---
Author Organization [facility] [address] Care Team Providers Care Optometric Aide Name Role Phone Dewayne Carrington MD Primary Care Provider Reason for Visit * Reason Comments Wound Care * Consultation (Routine) - Specialty Diagnoses / Procedures Referred By Contac t Referred To Contact Wound Care Diagnoses Pressure ulcer of unspecified buttock, unspecified stage PRESSURE ULCER, BUTTOCK Dewayne Carrington MD [address] [place] [address] [address] [facility] [place] [address] Referral ID Status Reason Start Date Expiration Date V isits Requested Visits Authorized [id number] Consult, Test & Treat Connection Center 09/28/2018 12/29/2018 6 6 Encounter Details Date Type Department Care Team (Late st Contact Info) Description 12/22/2018 4:00 PM EDT Office [place] [address] Kisha Reeves APRN Pressure injury of right [...] Beef, chicken, fish Beans, Lentils, peanut butter Tanzanian and regular yogurt Cheese, eggs Boost, Ensure shakes Protein powder in a smoothie of your choice documented in this encounter Progress Notes * Kisha Reeves APRN - 12/22/2018 4:00 PM EDT Images from the original note were not included. [facility] Initial Consultation Note HPI: [...] on phone: None Gets together: None Attends mosque service: None Active member of club or [...] his daughter. 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 Diagnostics: ERIKA's: n/a Imaging: none pertinent [...] in NAD Mobility: independent Edema: none Periwound: [place], blanchable Wound bed:pink, blanchable Exudate:none Odor: none Blanchable erythema over the katherine cleft, no open areas Wound Location Measurements Tunneling/undermining Wound bed Tina wound skin Right ischium 1.0 x 1.0 cm area none Blanchable erythema [place], blanchable ?? PHOTOS taken today: buttocks Wound [...] Beef, chicken, fish Beans, Lentils, peanut butter Tanzanian and regular yogurt Cheese, eggs Boost, Ensure shakes Protein powder in a smoothie of your choice Cc: Dewayne Carrington MD [facility] SAMIA DELANEY [facility] [place] [address] PCP: Dewayne Carrington MD documented in this encounter Plan of Treatment Upcoming Encounters Date Type Department Care Team (Late st Contact Info) Description 06/15/2024 10:00 AM [facility] Hospital Encounter Non[place] [address] Arrived documented as of this encounter Visit Diagnoses Diagnosis Pressure injury of right buttock, stage 1 documented in this encounter Care Teams Optometric Aide Relationship Specialty Start Date End Date Dewayne Carringotn MD PCP - General 09/02/16 documented as of this encounter
--- OUTSIDE RECORDS SUMMARY | 2024-05-09 16:20 | XMS_ITS | Encounter Summary ---
Author Organization [facility] [place] [address] Care Team Providers Care Community Youth Secretary Name Role Phone Dewayne Carrington MD Primary Care Provider [phone] Encounter Details Date Type Department Care Team (Late st Contact Info) Description 10/14/2017 Telephone Cardiology at [address] [address] Chante Robertson RN Social History [...] yellow, I gave him the number to [facility] and [facility] get connected-to further trouble shoot his connectivity issue documented in this encounter Plan of Treatment Upcoming Encounters Date Type Department Care Team (Late st Contact Info) Description 06/15/2024 10:00 AM EST Hospital Encounter Non-[place] [address] Arrived documented as of this encounter Visit Diagnoses Not on filedocumented in this encounter Care Teams Community Youth Secretary Relationship Specialty Start Date End Date Dewayne Carrington MD PCP - General 09/02/16 documented as of this encounter
--- OUTSIDE RECORDS SUMMARY | 2024-05-09 16:20 | XMS_ITS | Encounter Summary ---
[place] [address] Care Team Providers Care Tire Tester Name Role Phone Dewayne Carrington MD Primary Care Provider [phone] Encounter Details Date Type Department Care Team ([facility] Contact Info) Description 01/26/2019 External Results Cardiology at [address] [phone] Dewayne Carrington MD [address] [place] [phone] Social History Tobacco Use Types Packs/Day Years [...] AM EST Hospital Encounter [place] [address] Arrived documented as of this encounter Procedures Procedure Name Priority Date/Time Associated Diagnosis Comments EP DEVICE SCAN Routine 01/20/2019 documented in this encounter Results * Scan Doc: EP Device (01/20/2019) Anatomical Region Laterality Modality Other Dewayne Carrington MD MEDIA MGR SCAN EXT O RDR/RSLT documented in this encounter Visit Diagnoses Not on filedocumented in this encounter Care Teams Tire Tester Relationship Specialty Start Date End Date Dewayne Carrington MD PCP - General 09/02/16 documented as of this encounter
--- OUTSIDE RECORDS SUMMARY | 2024-05-09 16:20 | XMS_ITS | Encounter Summary ---
Author Organization [facility] [place] [address] Care Team Providers Care Guest History Clerk Name Role Phone Dewayne Carrington MD Primary Care Provider [phone] Reason for Visit * Consultation (Routine) - Closed Specialty Diagnoses / Procedures Referred By Rosa t Referred To Contact Rheumatology Diagnoses Pain in right wrist Honorio Vasquez MD [facility] [place] [address] [facility] [place] Rheumatology [address] [place] [address] Referral ID Status Reason Start Date Expiration Date V isits Requested Visits Authorized [id number] Closed Consult, Test & Treat 07/19/2018 07/19/2019 1 1 Encounter Details Date Type Department Care Team (Late st Contact Info) Description 09/01/2018 11:00 AM EDT Office [place] [address] Lee Ann Loaiza MD Raised [...] a 68-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 Using vaping pen for about 4 [...] Phalen's test negative. Full fist, claw, good cotton ball bagger. 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 for evaluation of [...] AM EST Hospital Encounter Non[place] [address] Arrived documented as of this encounter Procedures [...] Uric Acid 4.7 3.5 - 8.5 mg/dL [facility] Blood specimen (specimen) 09/01/2018 12:29 PM EDT 09/01/2018 12:36 PM EDT Narrative Resulting Agency Comment Spec In Lab Lee Ann Loaiza MD CHEMISTRY ORDERABLES [facility] [place] [address] * (ABNORMAL) Comprehensive metabolic panel (non-fasting) (09/01/2018 12:29 PM EDT) Glucose 161 65 - 199 mg/dL [facility] Comment:Diabetes: >=200 mg/d L plus symptoms Blood Urea Nitrogen 14 10 - 20 mg/dL [facility] Creatinine 0.92 0.80 - 1.50 mg/dL [facility] Sodium 140 135 - 145 mmol/L [facility] Potassium 4.4 3.5 - 5.0 mmol/L [facility] Comment: Please note: ??Patients with WBC >100,000 may have falsely elevated Potassium levels. ??For accurate Potassium quantification in these patients send serum separator tube (gold top) for subsequent determinations. ??Contact the Clinical Chemistry Laboratory if there are any questions. Chloride 102 98 - 107 mmol/L [facility] Carbon Dioxide 24 22 - 31 mmol/L [facility] Anion Gap 14 5 - 15 mmol/L [facility] Calcium 9.3 8.5 - 10.5 mg/dL [facility] Protein, Total 7.5 6.1 - 8.0 gm/dL [facility] Albumin 4.6 3.2 - 5.2 gm/dL [facility] Aspartate Aminotransferase 41(H) 0 - 39 unit/L [facility] Alanine Aminotransferase 41 0 - 55 unit/L [facility] Alkaline Phosphatase 70 40 - 120 unit/L [facility] Bilirubin, Total 0.4 0.2 - 1.3 mg/dL [facility] Est Glomerular Filtration Rate 85 >=60 mL/min/1. 73 m?? [facility] Comment: The eGFR was calculated using the CKD-EPI equation. As with all creatinine based estimates of kidney function, eGFR values calculated with the CKD-EPI equation are not accurate in patients with acute kidney failure, extremes of body mass or the acutely ill. http://[employer]DHMCnkf eGFR 98 >=60 mL/min/1. 73 m?? [facility] Comment: The eGFR was calculated using the CKD-EPI equation. As with all creatinine based estimates of kidney function, eGFR values calculated with the CKD-EPI equation are not accurate in patients with acute kidney failure, extremes of body mass or the acutely ill. http://[employer]MCnkf Blood specimen (specimen) 09/01/2018 12:29 PM EDT 09/01/2018 12:36 PM EDT Narrative Resulting Agency Comment Spec In Lab Lee Ann Loaiza MD CHEMISTRY ORDERABLES Performing Organization Address [facility]/ZIP Co de Phone Number [facility] [place] [address] * Sedimentation rate (09/01/2018 12:29 PM EDT) Sedimentation Rate Automated 6 0 - 15 mm/hr [facility] Blood specimen (specimen) 09/01/2018 12:29 PM EDT 09/01/2018 12:35 PM EDT Narrative Resulting Agency Comment Spec In Lab Lee Ann Loaiza MD HEMATOLOGY ORDERABLE S Performing Organization Address [facility] de Phone Number [facility] [place] [address] * Extractable Nuclear Antigen (MARLEEN) Ab (09/01/2018 12:29 PM EDT) MARLEEN Ab Test ?Result ?Flag ??Unit ??RefValue Ab to Extractable Nuclear Ag Eval,S ??SS-A/Ro Ab, IgG, S ?<0.2 ?U ? <1.0 (Negative) ??SS-B/La Ab, IgG, S ?<0.2 ?U ? <1.0 (Negative) ??Sm Ab, IgG, S ? <0.2 ?U ? <1.0 (Negative) ??SERVICE AIDE Ab, IgG, S ?0.4 ? U ? <1.0 (Negative) ??Scl 70 Ab, IgG, S ? <0.2 ?U ? <1.0 (Negative) ??Jaylin 1 Ab, IgG, S ? <0.2 ?U ? <1.0 (Negative) ?Test Performed by: ?[facility] ?[address] [place] [address] [facility] Blood specimen (specimen) 09/01/2018 12:29 PM EDT 09/01/2018 1:32 PM EDT Narrative Resulting Agency Comment Spec In Lab LeeA nn Loaiza MD LAB SEND OUT ORDERAB LES [facility] [place] [address] * Rheumatoid factor, quant (09/01/2018 12:29 PM EDT) Rheumatoid Factor <10 <=14 IU/mL [facility] Blood specimen (specimen) 09/01/2018 12:29 PM EDT 09/01/2018 12:36 PM EDT Narrative Resulting Agency Comment Spec In Lab Lee Ann Loaiza MD CHEMISTRY ORDERABLES [facility] [place] [address] documented in this encounter Visit Diagnoses Diagnosis Raised antibody titer Other and unspecified nonspecific immunological findings Arthralgia, unspecified joint Cervicalgia Chronic midline low back pain with left-sided sciatica documented in this encounter Care Teams Guest History Clerk Relationship Specialty Start Date End Date Dewayne Carrington MD PCP - General 09/02/16 documented as of this encounter
--- OUTSIDE RECORDS SUMMARY | 2024-05-09 16:20 | XMS_ITS | Encounter Summary ---
[place] [address] Care Team Providers Care Wire Temperer Name Role Phone Dewayne Carrington MD Primary Care Provider [phone] Reason for Visit * Reason Onset Date Comments Questions 01/03/2019 [facility] co ntact Encounter Details Date Type Department Care Team (Late Contact Info) Description 01/03/2019 Telephone [place] [phone] Sita Fu RN Questions ([facility] contact) Social History Tobacco Use Types Packs/Day [...] 11:08 AM EDT Spoke with radiology in [facility], they state they will not complete a [...] injection planned? Does he needfollow with Rheumatology? [phone] Thanks. documented in this encounter Plan of Treatment Upcoming Encounters Date Type Department Care Team (Late st Contact Info) Description 06/15/2024 10:00 AM EST Hospital Encounter [place] [address] Arrived documented as of this encounter Visit Diagnoses Not on filedocumented in this encounter Care Teams Wire Temperer Relationship Specialty Start Date End Date Dewayne Carrington MD PCP - General 09/02/16 documented as of this encounter
--- OUTSIDE RECORDS SUMMARY | 2024-05-09 16:20 | XMS_ITS | Encounter Summary ---
Author Organization [facility] [place] [address] Care Team Providers Care Marine Extension Agent Name Role Phone Dewayne Carrington MD Primary Care Provider [phone] Encounter Details Date Type Department Care Team (Late st Contact Info) Description 02/18/2018 Tele[place] [phone] Lucrecia Bhardwaj, RN Social History Tobacco Use [...] advice/treatment. He agrees with the plan. Patient/Responsible green party voices an understanding of advice? Yes Patient/Responsible green party intends to comply with action/disposition: Yes documented in this encounter Plan of Treatment Upcoming Encounters Date Type Department Care Team (Late st Contact Info) Description 06/15/2024 10:00 AM EST Hospital Encounter [place] [address] Arrived documented as of this encounter Visit Diagnoses Not on filedocumented in this encounter Care Teams Marine Extension Agent Relationship Specialty Start Date End Date Dewayne Carrington MD PCP - General 09/02/16 documented as of this encounter
--- OUTSIDE RECORDS SUMMARY | 2024-05-09 16:21 | XMS_ITS | Encounter Summary ---
Author Organization [facility] Address [facility] [place] [address] Care Team Providers Care Pre Billing Clinician Name Role Phone Dewayne Carrington MD Primary Care Provider [phone] Encounter Details Date Type Department Care Team (Latest Contact Info) Description 11/06/2016 1:00 PM EDT Office Visit Cardiology at [address] [address] Kit Self MD [facility] [place] [address] Typical atrial flutter; ASCVD (arteriosclerotic cardiovascular disease) [...] the original note were not included. [facility]ly [facility] [place]o [address] CARDIOLOGY OUTPATIENT FOLLOW-UP NOTE Marquez Hendrix [id number] PCP: Dewayne Carrington MD 11/06/2016 PRIMARY CARE PROVIDER: Dewayne Carrington MD PROBLEM LIST: Patient Active Problem List Diagnosis ??? ASCVD (arteriosclerotic cardiovascular disease) ?? Heart catheterization in [facility] in 2007 with placement of a stent in an unspecified vessel ?? Repeat heart catheterization in 2008 with placement of stents to both the LAD and circumflex ?? Followup heart catheterization in 2008 showing stable results in both vessels ?? Recurrent chest discomfort in a somewhat atypical pattern beginning fall ?? Nuclear stress test at [facility] in [place], [place] May 02, 2013 during which he developed left shoulder and arm discomfort during submaximal exercise on the treadmill and after which he was converted to a pharmacologic test; nuclear imaging showed ejection fraction of 45% with a partially reversible inferior defect ?? Cath [facility] 05/13/2013: normal left main, mild diffuse disease throughout the LAD with an 80% mid stenosis representing a restenosis lesion, mild diffuse disease in the proximal obtuse marginal branch, and mild diffuse disease throughout the right coronary artery; status post 3.0 X 12 mm JON to 80%mid-LAD lesion (in-stent restenosis) ?? Heart catheterization [facility] January 06, 2014 showing normal left main, hazy 50% mid LAD stenosis, mild diffuse disease throughout the circumflex, and moderate diffuse disease in the proximal RCA with a totally occluded distal RCA with brisk flow via bridging collaterals; fractional flow reserveon the LAD 0.85 ?? Nuclear stress test [facility] August 2016 reportedly showing a small area of inferior ischemia (final report pending) ?? Echo 11/06/16 showing inferior HK with EF 49%; no valvular disease ??? Typical atrial flutter ?? Occurred 06/08/13, lasted about 24 hours, and v rate about 80 (documented on ICD interrogation 07/18/14) ?? [id number] score = 3 ?? Patient initially reluctant to be anticoagulated as recommended ??? Atrial pacemaker lead displacement New finding at office follow up 04/10/2014 Plan lead reposition/replacement ??? ICD (implantable cardioverter-defibrillator), dual, in situ New Atrial electrode: Guidant Dextrus Model# 4126-53 cm Serial# [id number] ?? Bipolar, steroid-tipped, active-fixation IS-1 lead ?? [...] at 10 V: No Old Ventricular electrode: [place] [employer] [place] Model# 0292 Serial# [id number] ?? Bipolar, steroid-tipped, active-fixation DF-4 lead ?? [...] Atrial electrode: Guidant Dextrus Model# 4136 Serial# [id number] ?? Bipolar, steroid-tipped, active-fixation IS-1 lead ?? Access: Axillary vein ?? Location Removed 04/17/2014 ?? Implanted: 01/10/2014 Pulse generator: Pole Star Incepta Model# E162 Serial# [id number] ?? DDDR ICD ?? Location: Subcutaneous The [...] of his paroxysmal atrial fibrillation and elevated [id number] score we have recommended formal anticoagulation and [...] AM EST Hospital Encounter [place] [address] Arrived documented as of this [...] (Bezet) 460 ms MUSE SYSTEM Calculated P Pinon 42 degrees MUSE SYSTEM Calculated R Pinon -53 degrees MUSE SYSTEM Calculated T Pinon -5 degrees MUSE SYSTEM INTERPRETATION Normal sinus [...] disease documented in this encounter Care Teams Pre Billing Clinician Relationship Specialty Start Date End Date Raser, Dewayne, MD PCP - General 09/02/16 documented as of this encounter
--- OUTSIDE RECORDS SUMMARY | 2024-05-09 16:21 | XMS_ITS | Encounter Summary ---
Author Organization [facility] Address [facility] [place] [address] Care Team Providers Care Public Transit Trolley Driver Name Role Phone Dewayne Carrington MD Primary Care Provider [phone] Encounter Details Date Type Department Care Team (Latest Contact Info) Description 03/03/2017 2:40 PM EST Office Visit Cardiology at [address] [address] Kit Self MD [facility] [address] PAF (paroxysmal atrial fibrillation); ASCVD (arteriosclerotic cardiovascular [...] Self MD - 03/03/2017 2:40 PM EST [facility] [place] [address] CARDIOLOGY OUTPATIENT FOLLOW-UP NOTE Marquez Hendrix [id number] PCP: Dewayne Carrington MD 03/03/2017 PRIMARY CARE [...] Nuclear stress test at [facility] in [place], [place] May 02, 2013 during which he developed left shoulder and arm discomfort during submaximal exercise on the treadmill and after which he was converted to a pharmacologic test; nuclear imaging showed ejection fraction of 45% with a partially reversible inferior defect ?? Cath [facility] 05/13/2013: normal left main, mild diffuse disease throughout the LAD with an 80% mid stenosis representing a restenosis lesion, mild diffuse disease in the proximal obtuse marginal branch, and mild diffuse disease throughout the right coronary artery; status post 3.0 X 12 mm JON to 80%mid-LAD lesion (in-stent restenosis) ?? Heart catheterization [facility] January 06, 2014 showing normal left main, hazy 50% mid LAD stenosis, mild diffuse disease throughout the circumflex, and moderate diffuse disease in the proximal RCA with a totally occluded distal RCA with brisk flow via bridging collaterals; fractional flow reserveon the LAD 0.85 ?? Nuclear stress test [facility] August 2016 reportedly showing a small area of inferior ischemia (final report pending) ?? Echo 11/06/16 showing inferior HK with EF 49%; no valvular disease ??? Typical atrial flutter ?? Occurred 06/08/13, lasted about 24 hours, and v rate about 80 (documented on ICD interrogation 07/18/14) ?? [id number] score = 3 ?? Patient initially reluctant to be anticoagulated as recommended ??? Atrial pacemaker lead displacement New finding at office follow up 04/10/2014 Plan lead reposition/replacement ??? ICD (implantable cardioverter-defibrillator), dual, in situ New Atrial electrode: Guidant Dextrus Model# 4126-53 cm Serial# [id number] ?? Bipolar, steroid-tipped, active-fixation IS-1 lead ?? [...] at 10 V: No Old Ventricular electrode: Elliott Qik Malott Model# 0292 Serial# [id number] ?? Bipolar, steroid-tipped, active-fixation DF-4 lead ?? [...] Atrial electrode: Guidant Dextrus Model# 4136 Serial# [id number] ?? Bipolar, steroid-tipped, active-fixation IS-1 lead ?? Access: Axillary vein ?? Location Removed 04/17/2014 ?? Implanted: 01/10/2014 Pulse generator: Xytis Incepta Model# E162 Serial# [id number] ?? DDDR ICD ?? Location: Subcutaneous The [...] AM EST Hospital Encounter Non-[place] [address] Arrived documented as of this encounter Visit Diagnoses Diagnosis PAF (paroxysmal atrial fibrillation) Atrial fibrillation ASCVD (arteriosclerotic cardiovascular disease) Unspecified cardiovascular disease documented in this encounter Care Teams Public Transit Trolley Driver Relationship Specialty Start Date End Date Dewayne Carrington MD PCP - General 09/02/16 documented as of this encounter
--- OUTSIDE RECORDS SUMMARY | 2024-05-09 16:21 | XMS_ITS | Encounter Summary ---
Author Organization [facility] Address [facility] [place] [address] Care Team Providers Care Job Developer For Deaf Adults Name Role Phone Dewayne Carrington MD Primary Care Provider Encounter Details Date Type Department Care Team (Latest Contact Info) Description 09/23/2017 - 09/23/2017 11:59 PM EDT Hospital Encounter Radiology Library at [facility] [place] [place] [phone] Honorio Vasquez MD [facility] [place] [address] Discharge Disposition: Home Social History Tobacco Use [...] AM EST Hospital Encounter Non-Invasive [place] [address] Arrived documented as of this [...] Vasquez MD IMG FILM LIBRARY ORD ERABLES [place], [place] documented in this encounter Visit Diagnoses Not on filedocumented in this encounter Care Teams Job Developer For Deaf Adults Relationship Specialty Start Date End Date Dewayne Carrington MD PCP - General 09/02/16 documented as of this encounter
--- OUTSIDE RECORDS SUMMARY | 2024-05-09 16:21 | XMS_ITS | Encounter Summary ---
[place] [address] Care Team Providers Care Battery Engineer Name Role Phone Dewayne Carrington MD Primary Care Provider [phone] Reason for Visit * Reason Onset Date Comments Medication Problem 03/10/2017 Encounter Details Date Type Department Care Team (Late st Contact Info) Description 03/10/2017 Refill Cardiology at [address] [phone] Rosanna Morrow salesperson books Problem Social History Tobacco Use Types Packs/Day [...] AM EST Hospital Encounter Non-[place] [phone] Arrived documented as of this encounter Visit Diagnoses Not on filedocumented in this encounter Care Teams Battery Engineer Relationship Specialty Start Date End Date Dewayne Carrington MD PCP - General 09/02/16 documented as of this encounter
--- OUTSIDE RECORDS SUMMARY | 2024-05-09 16:21 | XMS_ITS | Encounter Summary ---
Author Organization [facility] Address [facility] [place] [address] Care Team Providers Care Production Assistant Name Role Phone Dewayne Carrington MD Primary Care Provider [phone] Encounter Details Date Type Department Care Team (Late st Contact Info) Description 09/03/2016 Telephone Cardiology at [address] [phone] Gisselle Sutherland RN Social History Tobacco Use [...] encounter Miscellaneous Notes * Telephone Encounter - iGsselle Sutherland RN - 09/03/2016 4:22 PM EDT He called to report to Dr. Self that he had been seen in the [facility] ED last night. Had a stress test on Friday 09/01. After the test he was upset about stuff that was happening at the apartment. Didn't sleep Thursday night. Yesterday he was very active, didn't feel well, jacked up BP went up to 163/110. Sounds and lights made him feel worse, pressure in his head. [place] like his ICD might fire. In the ED he reports everything checked out OK. Had labs, EKG, brain scan. They did not have a javascript programmer to check ICD. He has sent a remote download to us. Does not have result of stress test yet. Feels better today. BP 135/82 HR 61. Noon 126/75 HR 61. Reports being faxed. documented in this encounter Plan of Treatment Upcoming Encounters Date Type Department Care Team (Late st Contact Info) Description 06/15/2024 10:00 AM [facility] Hospital Encounter Non[place] [address] Arrived documented as of this encounter Visit Diagnoses Not on filedocumented in this encounter Care Teams Production Assistant Relationship Specialty Start Date End Date Dewayne Carrington MD PCP - General 09/02/16 documented as of this encounter
--- OUTSIDE RECORDS SUMMARY | 2024-05-09 16:21 | XMS_ITS | Encounter Summary ---
[place] [address] Care Team Providers Care Direct Marketing Manager Name Role Phone Dewayne Carrington MD Primary Care Provider Encounter Details Date Type Department Care Team (Late st Contact Info) Description 09/03/2016 Orders Only Cardiology at [address] [address] Social History Tobacco Use Types Packs/Day Years [...] EST Hospital Encounter Non-[place] [address] Arrived documented as of this encounter Procedures Procedure Name Priority Date/Time Associated Diagnosis Comments CARDIAC DEVICE CHECK - REMOTE PATIENT INITIATED Routine 09/03/2016 3:22 AM EDT documented in this encounter Results * Cardiac device check - Remote Patient Initiated (09/03/2016 3:22 AM EDT) Date Time Interrogation Session [id number] IDCO Type Interrogation Session Remote Patient Initiated [facility] IDCO Battery Date Time of Measurements [id number] IDCO Battery Status Beginning of Service IDCO Battery Remaining Longevity 108 mo IDCO Battery Remaining Percentage 100 % IDCO Capacitor Last Charge Date Time [id number] IDCO Capacitor Charge Time 10.4 s IDCO Capacitor Charge Type Reformation IDCO Capacitor Last Charge Date Time [id number] IDCO Capacitor Charge Time 3.8 s IDCO Capacitor Charge Energy 21 J IDCO Capacitor Charge Type Shock IDCO Episode Identifier APM-18 IDCO Episode Date Time [id number] IDCO Episode Type Category Periodic EGM IDCO Episode Vendor Type Category APMRT IDCO Episode Detection And Therapy Details Presenting EGM IDCO Episode Identifier [id number] IDCO Episode Date Time [id number] IDCO Episode Type Category Other IDCO Episode Vendor Type Category XANDER IDCO Episode Detection Interval Ventricular 923 ms IDCO Episode Duration 57 s IDCO Episode Detection And Therapy Details IDCO Episode Identifier [id number] IDCO Episode Date Time IDCO Episode Type Category Other IDCO Episode Vendor Type Category XANDER IDCO Episode Detection Interval Ventricular 923 ms IDCO Episode Duration 57 s IDCO Episode Detection And Therapy Details IDCO Episode Identifier -[id number] IDCO Episode Date Time IDCO Episode Type Category Other IDCO Episode Vendor Type Category XANDER IDCO Episode Detection Interval Ventricular 952 ms IDCO Episode Duration 56 s IDCO Episode Detection And Therapy Details IDCO Episode Identifier [id number] IDCO Episode Date Time [id number] IDCO Episode Type Category Other IDCO Episode Vendor Type Category XANDER IDCO Episode Detection Interval Ventricular 870 ms IDCO Episode Duration 54 s IDCO Episode Detection And Therapy Details IDCO Episode Identifier -[id number] IDCO Episode Date Time [id number] IDCO Episode Type Category Other IDCO Episode Vendor Type Category XANDER IDCO Episode Detection Interval Ventricular 690 ms IDCO Episode Duration 40 s IDCO Episode Detection And Therapy Details IDCO Episode Identifier [id number] IDCO Episode Date Time IDCO Episode Type Category Other IDCO Episode Vendor Type Category XANDER IDCO Episode Detection Interval Ventricular 968 ms IDCO Episode Duration 58 s IDCO Episode Detection And Therapy Details Q IDCO Episode Identifier [id number] IDCO Episode Date Time [id number] IDCO Episode Type Category Other IDCO Episode Vendor Type Category XANDER IDCO Episode Detection Interval Ventricular 952 ms IDCO Episode Duration 58 s IDCO Episode Detection And Therapy Details IDCO Episode Identifier [id number] IDCO Episode Date Time [id number] IDCO Episode Type Category Other IDCO Episode Vendor Type Category XANDER IDCO Episode Detection Interval Ventricular 909 ms IDCO Episode Duration 78 s IDCO Episode Detection And Therapy Details IDCO Episode Identifier [id number] IDCO Episode Date Time [id number] IDCO Episode Type Category Other IDCO Episode Vendor Type Category XANDER IDCO Episode Detection Interval Ventricular 984 ms IDCO Episode Duration 54 s IDCO Episode Detection And Therapy Details IDCO Episode Identifier -67465 IDCO Episode Date Time [id number] IDCO Episode Type Category Other IDCO Episode Vendor Type Category XANDER IDCO Episode Detection Interval Ventricular 923 ms IDCO Episode Duration 53 s IDCO Episode Detection And Therapy Details Q IDCO Episode Identifier ATR-120 IDCO Episode Date Time [id number] IDCO Episode Type Category AT/AF IDCO Episode Vendor Type Category ATR IDCO Episode Detection Interval Atrial 265 ms IDCO Episode Duration 52 s IDCO Episode Detection And Therapy Details ATR IDCO Episode Identifier ATR-119 IDCO Episode Date Time [id number] IDCO Episode Type Category AT/AF IDCO Episode Vendor Type Category ATR IDCO Episode Detection Interval Atrial 227 ms IDCO Episode Duration 19,859 s IDCO Episode Detection And Therapy Details ATR IDCO Episode Identifier ATR-118 IDCO Episode Date Time [id number] IDCO Episode Type Category AT/AF IDCO Episode Vendor Type Category ATR IDCO Episode Detection Interval Atrial 800 ms IDCO Episode Duration 1 s IDCO Episode Detection And Therapy Details ATR IDCO Episode Identifier ATR-117 IDCO Episode Date Time [id number] IDCO Episode Type Category AT/AF IDCO Episode Vendor Type Category ATR IDCO Episode Detection Interval Atrial 287 ms IDCO Episode Duration 27 s IDCO Episode Detection And Therapy Details ATR IDCO Episode Identifier ATR-116 IDCO Episode Date Time [id number] IDCO Episode Type Category AT/AF IDCO Episode Vendor Type Category ATR IDCO Episode Detection Interval Atrial 882 ms IDCO Episode Duration 4 s IDCO Episode Detection And Therapy Details ATR IDCO Episode Identifier ATR-115 IDCO Episode Date Time [id number] IDCO Episode Type Category AT/AF IDCO Episode Vendor Type Category ATR IDCO Episode Detection Interval Atrial 317 ms IDCO Episode Duration 487 s IDCO Episode Detection And Therapy Details ATR IDCO Episode Identifier ATR-114 IDCO Episode Date Time [id number] IDCO Episode Type Category AT/AF IDCO Episode Vendor Type Category ATR IDCO Episode Detection Interval Atrial 241 ms IDCO Episode Duration 53 s IDCO Episode Detection And Therapy Details ATR IDCO Episode Identifier V-171 IDCO Episode Date Time [id number] IDCO Episode Type Category VT IDCO Episode Vendor Type Category NSVT IDCO Episode Type Induced Flag NO IDCO Episode Detection Interval Ventricular 353 ms IDCO Episode Duration 6 s IDCO Episode Detection And Therapy Details NonSustV IDCO Episode Identifier V-170 IDCO Episode Date Time [id number] IDCO Episode Type Category VT IDCO Episode Vendor Type Category NSVT IDCO Episode Type Induced Flag NO IDCO Episode Detection Interval Ventricular 351 ms IDCO Episode Duration 6 s IDCO Episode Detection And Therapy Details NonSustV IDCO Episode Identifier V-169 IDCO Episode Date Time [id number] IDCO Episode Type Category VT IDCO Episode Vendor Type Category NSVT IDCO Episode Type Induced Flag NO IDCO Episode Detection Interval Ventricular 351 ms IDCO Episode Duration 6 s IDCO Episode Detection And Therapy Details NonSustV IDCO Episode Identifier V-168 IDCO Episode Date Time [id number] IDCO Episode Type Category VT IDCO Episode Vendor Type Category NSVT IDCO Episode Type Induced Flag NO IDCO Episode Detection Interval Ventricular 351 ms IDCO Episode Duration 18 s IDCO Episode Detection And Therapy Details NonSustV IDCO Episode Identifier V-167 IDCO Episode Date Time [id number] IDCO Episode Type Category VT IDCO Episode Vendor Type Category NSVT IDCO Episode Type Induced Flag NO IDCO Episode Detection Interval Ventricular 359 ms IDCO Episode Duration 10 s IDCO Episode Detection And Therapy Details NonSustV IDCO Episode Identifier V-166 IDCO Episode Date Time [id number] IDCO Episode Type Category VT IDCO Episode Vendor Type Category NSVT IDCO Episode Type Induced Flag NO IDCO Episode Detection Interval Ventricular 359 ms IDCO Episode Duration 7 s IDCO Episode Detection And Therapy Details NonSustV IDCO Episode Identifier V-165 IDCO Episode Date Time [id number] IDCO Episode Type Category VT IDCO Episode Vendor Type Category NSVT IDCO Episode Type Induced Flag NO IDCO Episode Detection Interval Ventricular 305 ms IDCO Episode Duration 7 s IDCO Episode Detection And Therapy Details NonSustV IDCO Episode Identifier V-164 IDCO Episode Date Time [id number] IDCO Episode Type Category VT IDCO Episode Vendor Type Category NSVT IDCO Episode Type Induced Flag NO IDCO Episode Detection Interval Ventricular 368 ms IDCO Episode Duration 6 s IDCO Episode Detection And Therapy Details NonSustV IDCO Episode Identifier V-163 IDCO Episode Date Time [id number] IDCO Episode Type Category VT IDCO Episode Vendor Type Category NSVT IDCO Episode Type Induced Flag NO IDCO Episode Detection Interval Ventricular 368 ms IDCO Episode Duration 7 s IDCO Episode Detection And Therapy Details NonSustV IDCO Episode Identifier V-162 IDCO Episode Date Time [id number] IDCO Episode Type Category VT IDCO Episode Vendor Type Category NSVT IDCO Episode Type Induced Flag NO IDCO Episode Detection Interval Ventricular 377 ms IDCO Episode Duration 7 s IDCO Episode Detection And Therapy Details NonSustV IDCO Episode Identifier ATR-113 IDCO Episode Date Time [id number] IDCO Episode Type Category AT/AF IDCO Episode Vendor Type Category ATR IDCO Episode Detection Interval Atrial 258 ms IDCO Episode Duration 10 s IDCO Episode Detection And Therapy Details ATR IDCO Episode Identifier ATR-112 IDCO Episode Date Time [id number] IDCO Episode Type Category AT/AF IDCO Episode Vendor Type Category ATR IDCO Episode Detection Interval Atrial 246 ms IDCO Episode Duration 228 s IDCO Episode Detection And Therapy Details ATR IDCO Episode Identifier ATR-111 IDCO Episode Date Time [id number] IDCO Episode Type Category AT/AF IDCO Episode [...] Setting CORINE Delay Low 65 ms IDCO Ablaro Setting PAV Delay High 180 ms IDCO [...] E162 IDCO Implantable Pulse Generator Serial Number [id number] IDCO Implantable Pulse Generator Vulcanizer [place] [employer] IDCO Implantable Pulse Generator Implant Date 20140110 IDCO Implantable Lead Model 4136 IDCO Implantable Lead Serial Number [id number] IDCO Implantable Lead Vulcanizer Guidant IDCO Implantable Lead Implant Date 20130421 IDCO Implantable Lead Polarity Type Bipolar Lead IDCO Implantable Lead Location Right Atrium IDCO Implantable Lead Model 0292 IDCO Implantable Lead Serial Number [id number] IDCO Implantable Lead Vulcanizer [place] [employer] IDCO Implantable Lead Implant Date IDCO [...] IDCO Lead Channel Pacing Threshold Measurement Method Twine Winder Manual IDCO Lead Channel Pacing Threshold [...] IDCO Lead Channel Pacing Threshold Measurement Method Twine Winder Manual IDCO Lead Channel Pacing Threshold [...] on filedocumented in this encounter Care Teams Direct Marketing Manager Relationship Specialty Start Date End Date Dewayne Carrington MD PCP - General 09/02/16 documented as of this encounter
--- OUTSIDE RECORDS SUMMARY | 2024-05-09 16:21 | XMS_ITS | Encounter Summary ---
[place] [address] Care Team Providers Care Fisher Seal Name Role Phone Dewayne Carrington MD Primary Care Provider [phone] Encounter Details Date Type Department Care Team (Late st Contact Info) Description 02/25/2017 Orders Only Cardiology at [address] [id number] Social History Tobacco Use Types Packs/Day Years [...] AM EST Hospital Encounter Non-[place] [address] Arrived documented as of this encounter Procedures Procedure Name Priority Date/Time Associated Diagnosis Comments CARDIAC DEVICE CHECK - REMOTE PATIENT INITIATED Routine 02/25/2017 1:24 PM EST documented in this encounter Results * Cardiac device check - Remote Patient Initiated (02/25/2017 1:24 PM EST) Date Time Interrogation Session [id number] IDCO Type Interrogation Session Remote Patient Initiated IDCO Clinic Name [facility] IDCO Battery Date Time of Measurements [id number] IDCO Battery Status Beginning of Service IDCO Battery Remaining Longevity 102 mo IDCO Battery Remaining Percentage 100 % IDCO Capacitor Last Charge Date Time IDCO Capacitor Charge Time 10.4 s IDCO Capacitor Charge Type Reformation IDCO Capacitor Last Charge Date Time [id number] IDCO Capacitor Charge Time 3.8 s IDCO Capacitor Charge Energy 21 J IDCO Capacitor Charge Type Shock IDCO Episode Identifier APM-23 IDCO Episode Date Time [id number] IDCO Episode Type Category Periodic EGM IDCO Episode Vendor Type Category APMRT IDCO Episode Detection And Therapy Details Presenting EGM IDCO Episode Identifier [id number] IDCO Episode Date Time [id number] IDCO Episode Type Category Other IDCO Episode Vendor Type Category XANDER IDCO Episode Detection Interval Ventricular 909 ms IDCO Episode Duration 56 s IDCO Episode Detection And Therapy Details IDCO Episode Identifier V-198 IDCO Episode Date Time [id number] IDCO Episode Type Category VT IDCO Episode [...] Detection And Therapy Details IDCO Episode Identifier [id number] IDCO Episode Date Time [id number] IDCO Episode Type Category Other IDCO Episode [...] Detection And Therapy Details IDCO Episode Identifier [id number] IDCO Episode Date Time IDCO Episode Type Category Other IDCO Episode Vendor Type Category XANDER IDCO Episode Detection Interval Ventricular 1,034 ms IDCO Episode Duration 62 s IDCO Episode Detection And Therapy Details Q IDCO Episode Identifier [id number] IDCO Episode Date Time [id number] IDCO Episode Type Category Other IDCO Episode Vendor Type Category XANDER IDCO Episode Detection Interval Ventricular 909 ms IDCO Episode Duration 54 s IDCO Episode Detection And Therapy Details Q IDCO Episode Identifier [id number] IDCO Episode Date Time [id number] IDCO Episode Type Category Other IDCO Episode Vendor Type Category XANDER IDCO Episode Detection Interval Ventricular 923 ms IDCO Episode Duration 54 s IDCO Episode Detection And Therapy Details Q IDCO Episode Identifier [id number] IDCO Episode Date Time [id number] IDCO Episode Type Category Other IDCO Episode Vendor Type Category XANDER IDCO Episode Detection Interval Ventricular 909 ms IDCO Episode Duration 54 s IDCO Episode Detection And Therapy Details Q IDCO Episode Identifier [id number] IDCO Episode Date Time [id number] IDCO Episode Type Category Other IDCO Episode Vendor Type Category XANDER IDCO Episode Detection Interval Ventricular 909 ms IDCO Episode Duration 53 s IDCO Episode Detection And Therapy Details Q IDCO Episode Identifier [id number] IDCO Episode Date Time IDCO Episode Type [...] E162 IDCO Implantable Pulse Generator Serial Number [id number] IDCO Implantable Pulse Generator Cable Assembler And Swager [place] [employer] IDCO Implantable Pulse Generator Implant Date 20140110 IDCO Implantable Lead Model 4136 IDCO Implantable Lead Serial Number [id number] IDCO Implantable Lead Cable Assembler And Swager Guidant IDCO Implantable Lead Implant Date 20130421 IDCO Implantable Lead Polarity Type Bipolar Lead IDCO Implantable Lead Location Right Atrium IDCO Implantable Lead Model 0292 IDCO Implantable Lead Serial Number [id number] IDCO Implantable Lead Cable Assembler And Swager [place] [employer] IDCO Implantable Lead Implant Date IDCO [...] IDCO Lead Channel Pacing Threshold Measurement Method Human Resource Consultant Manual IDCO Lead Channel Pacing Threshold [...] IDCO Lead Channel Pacing Threshold Measurement Method Human Resource Consultant Manual IDCO Lead Channel Pacing Threshold [...] on filedocumented in this encounter Care Teams Fisher Seal Relationship Specialty Start Date End Date Dewayne Carrington MD PCP - General 09/02/16 documented as of this encounter
--- OUTSIDE RECORDS SUMMARY | 2024-05-09 16:21 | XMS_ITS | Encounter Summary ---
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 Procedures Echocardiogram Transthoracic(Leb) Huy Butler MD [facility] [place] [address] [facility] [place] [address] Referral ID Status Reason Start Date Expiration Date V isits Requested Visits Authorized [id number] Closed Specialty Service Requested 10/01/2016 10/01/2017 1 1 Reason for Visit * Diagnostic Test (Routine) - Closed Specialty Diagnoses / Procedures Referred By Contac t Referred To Contact Cardiology Diagnoses 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 Procedures Echocardiogram Transthoracic(Leb) Huy Butler MD [facility] [place] [address] [facility] [place] [address] Referral ID Status Reason Start Date Expiration Date V isits Requested Visits Authorized [id number] Closed Specialty Service Requested 10/01/2016 10/01/2017 1 1 Encounter Details Date Type Department Care Team (Latest Contact Info) Description 11/06/2016 10:44 AM EDT - 11/06/2016 11:59 PM EDT Hospital Encounter Non-Invasive Cardiology Lab [facility] [place] [address] Kit Self MD [facility] [place] [address] 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 Discharge Disposition: Home [...] Contact Info) Description 06/15/2024 10:00 AM [facility] Hospital Encounter Non-Invasive [place] [address] Arrived documented as of this encounter Procedures Procedure Name Priority Date/Time Associated Diagnosis Comments ECHO COMPLETE W CONTRAST Routine 11/06/2016 11:56 AM EDT 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 [id number] ?Sex: ?M ? [place] Loc: ? [facility] [place]Ht / Wt: ??185(cm)/91(kg) Pt. Loc: ?Echo Lab ?BSA: ?2.15 Study Date: ?? 11/06/2016 ?Pt. Type: Outpatient Tape: ? 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 Paced rhythm BP: ? 115/72 [...] E-wave Vmax ?0.7 ?m/sec ? MV deceleration flkk157.6 ?msec ? MV A-wave Vmax ?0.7 ?m/sec [...] ? Mid-Inferior ?Hypokinetic ? Mid-Inferoseptal ?Normal ? [place]-Septal ? Normal ? [place]-Anterior ? Normal ? [place]-Lateral ?Normal ? [place]-Inferior ? Hypokinetic ? [place]-Tip ?Normal ? This report has been electronically signed by: Huseyin Espinoza MD ? 11/06/2016 12:33:49 Images reviewed and interpretation verified [facility] Cardiac Ultrasound Laboratory Procedure Note Huseyin Espinoza MD - 11/06/2016 Procedure: Transthoracic Echocardiogram Patient: PAMELA Gordon (Age): 1950(66y) Med Rec#: [id number] Sex: M [place] Loc: [facility] [place] Ht / Wt: 185(cm)/91(kg) Pt. Loc: Echo Lab BSA: 2.15 Study Date: 11/06/2016 Pt. 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
--- OUTSIDE RECORDS SUMMARY | 2024-05-09 16:21 | XMS_ITS | Encounter Summary ---
[place] [address] Care Team Providers Care Guest Relations Agent Name Role Phone Dewayne Carrington MD Primary Care Provider [phone] Encounter Details Date Type Department Care Team (Late st Contact Info) Description 12/19/2016 Telephone Cardiology at [address] [address] Suni Cortes, RN Social History [...] AM EST Hospital Encounter Non[place] [address] Arrived documented as of this encounter Visit Diagnoses Not on filedocumented in this encounter Care Teams Guest Relations Agent Relationship Specialty Start Date End Date Dewayne Carrington MD PCP - General 09/02/16 documented as of this encounter
--- OUTSIDE RECORDS SUMMARY | 2024-05-09 16:21 | XMS_ITS | Encounter Summary ---
[place] [address] Care Team Providers Care Wide Area Network Engineer Name Role Phone Dewayne Carrington MD Primary Care Provider [phone] Encounter Details Date Type Department Care Team (Late st Contact Info) Description 01/06/2017 Orders Only Cardiology at [address] [phone] Social History Tobacco Use Types Packs/Day Years [...] AM EST Hospital Encounter Non-Invasive [place] [address] Arrived documented as of this encounter Procedures Procedure Name Priority Date/Time Associated Diagnosis Comments CARDIAC DEVICE CHECK - REMOTE SCHEDULED Routine 01/06/2017 12:41 AM EDT documented in this encounter Results * Cardiac device check - Remote Scheduled (01/06/2017 12:41 AM EDT) Date Time Interrogation Session [id number] IDCO Type Interrogation Session Remote Scheduled IDCO Clinic Name [facility] IDCO Battery Date Time of Measurements [id number] IDCO Battery Status Beginning of Service IDCO Battery Remaining Longevity 102 mo IDCO Battery Remaining Percentage 100 % IDCO Capacitor Last Charge Date Time IDCO Capacitor Charge Time 10.4 s IDCO Capacitor Charge Type Reformation IDCO Capacitor Last Charge Date Time [id number] IDCO Capacitor Charge Time 3.8 s IDCO Capacitor Charge Energy 21 J IDCO Capacitor Charge Type Shock IDCO Episode Identifier APM-20 IDCO Episode Date Time IDCO Episode Type Category Periodic EGM IDCO Episode Vendor Type Category APMRT IDCO Episode Detection And Therapy Details Presenting EGM IDCO Episode Identifier [id number] IDCO Episode Date Time IDCO Episode Type [...] IDCO Episode Identifier IDCO Episode Date Time [id number] IDCO Episode Type Category Other IDCO Episode Vendor Type Category XANDER IDCO Episode Detection Interval Ventricular 1,034 ms IDCO Episode Duration 62 s IDCO Episode Detection And Therapy Details IDCO Episode Identifier [id number] IDCO Episode Date Time IDCO Episode Type Category Other IDCO Episode Vendor Type Category XANDER IDCO Episode Detection Interval Ventricular 1,176 ms IDCO Episode Duration 63 s IDCO Episode Detection And Therapy Details IDCO Episode Identifier [id number] IDCO Episode Date Time IDCO Episode Type Category Other IDCO Episode Vendor Type Category XANDER IDCO Episode Detection Interval Ventricular 1,053 ms IDCO Episode Duration 60 s IDCO Episode Detection And Therapy Details IDCO Episode Identifier [id number] IDCO Episode Date Time IDCO Episode Type Category Other IDCO Episode Vendor Type Category XANDER IDCO Episode Detection Interval Ventricular 1,034 ms IDCO Episode Duration 53 s IDCO Episode Detection And Therapy Details IDCO Episode Identifier [id number] IDCO Episode Date Time [id number] IDCO Episode Type Category Other IDCO Episode Vendor Type Category XANDER IDCO Episode Detection Interval Ventricular 1,034 ms IDCO Episode Duration 64 s IDCO Episode Detection And Therapy Details Q IDCO Episode Identifier ATR-126 IDCO Episode Date Time [id number] IDCO Episode Type Category AT/AF IDCO Episode Vendor Type Category ATR IDCO Episode Detection Interval Atrial 243 ms IDCO Episode Duration 51 s IDCO Episode Detection And Therapy Details ATR IDCO Episode Identifier ATR-125 IDCO Episode Date Time [id number] IDCO Episode Type Category AT/AF IDCO Episode Vendor Type Category ATR IDCO Episode Detection Interval Atrial 267 ms IDCO Episode Duration 33 s IDCO Episode Detection And Therapy Details ATR IDCO Episode Identifier ATR-124 IDCO Episode Date Time [id number] IDCO Episode Type Category AT/AF IDCO Episode Vendor Type Category ATR IDCO Episode Detection Interval Atrial 213 ms IDCO Episode Duration 136 s IDCO Episode Detection And Therapy Details ATR IDCO Episode Identifier V-173 IDCO Episode Date Time [id number] IDCO Episode Type Category VT IDCO Episode [...] Episode Identifier ATR-122 IDCO Episode Date Time [id number] IDCO Episode Type Category AT/AF IDCO Episode [...] E162 IDCO Implantable Pulse Generator Serial Number [id number] IDCO Implantable Pulse Generator Budget Director [employer] IDCO Implantable Pulse Generator Implant Date 20140110 IDCO Implantable Lead Model 4136 IDCO Implantable Lead Serial Number [id number] IDCO Implantable Lead Budget Director Guidant IDCO Implantable Lead Implant Date 20130421 IDCO Implantable Lead Polarity Type Bipolar Lead IDCO Implantable Lead Location Right Atrium IDCO Implantable Lead Model 0292 IDCO Implantable Lead Serial Number [id number] IDCO Implantable Lead Budget Director [employer] IDCO Implantable Lead Implant Date IDCO [...] IDCO Lead Channel Pacing Threshold Measurement Method Surgical Garment Assembler Manual IDCO Lead Channel Pacing Threshold [...] IDCO Lead Channel Pacing Threshold Measurement Method Surgical Garment Assembler Manual IDCO Lead Channel Pacing Threshold [...] on filedocumented in this encounter Care Teams Wide Area Network Engineer Relationship Specialty Start Date End Date Dewayne Carrington MD PCP - General 09/02/16 documented as of this encounter
--- OUTSIDE RECORDS SUMMARY | 2024-05-09 16:21 | XMS_ITS | Encounter Summary ---
Author Organization [facility] Address [facility] [place] [address] Care Team Providers Care Security Systems Integrator Name Role Phone Dewayne Carrington MD Primary Care Provider [phone] Encounter Details Date Type Department Care Team (Latest Contact Info) Description 09/30/2016 2:20 PM EDT Office Visit Cardiology at [address] [phone] [facility] [place] [address] ASCVD (arteriosclerotic cardiovascular disease) Social History Tobacco [...] his stroke risk with his fairly high [id number] score. We once again reviewed recommendations for [...] is giving this thought Kit Self MD, [facility] * Huy Butler MD - 09/30/2016 [...] in discussion with Dr. Clair Butler MD freight receiver Pager [phone]. documented in this encounter Plan of Treatment Upcoming Encounters Date Type Department Care Team (Late st Contact Info) Description 06/15/2024 10:00 AM EST Hospital Encounter Non[place] [address] Arrived documented as of this encounter Visit Diagnoses Diagnosis ASCVD (arteriosclerotic cardiovascular disease) Unspecified cardiovascular disease documented in this encounter Care Teams Security Systems Integrator Relationship Specialty Start Date End Date Dewayne Carrington MD PCP - General 09/02/16 documented as of this encounter
--- OUTSIDE RECORDS SUMMARY | 2024-05-09 16:21 | XMS_ITS | Encounter Summary ---
[place] [address] Care Team Providers Care Mat Maker Name Role Phone Ángel Bingham MD Primary Care Provider [phone] Encounter Details Date Type Department Care Team (Late st Contact Info) Description 04/23/2016 External Results Cardiology at [address] [phone] Ángel Bingham MD [facility] [address] [place] [address] Social History Tobacco Use Types Packs/Day Years [...] AM EST Hospital Encounter Non-[place] [address] Arrived documented as of this encounter Procedures Procedure Name Priority Date/Time Associated Diagnosis Comments EP DEVICE SCAN Routine 04/15/2016 documented in this encounter Results * Scan Doc: EP Device (04/15/2016) Anatomical Region Laterality Modality Other Ángel Bingham MD MEDIA MGR SCAN EXT O RDR/RSLT documented in this encounter Visit Diagnoses Not on filedocumented in this encounter Care Teams Mat Maker Relationship Specialty Start Date End Date Ángel Bingham MD [facility] [address] [place] [address] PCP - General 01/31/14 09/01/16 documented as of this encounter
--- OUTSIDE RECORDS SUMMARY | 2024-05-09 16:21 | XMS_ITS | Encounter Summary ---
Author Organization [facility] Address [facility] [place] [address] Care Team Providers Care Voice Network Engineer Name Role Phone Dewayne Carrington MD Primary Care Provider [phone] Encounter Details Date Type Department Care Team (Latest Contact Info) Description 06/14/2017 - 06/14/2017 11:59 PM EST Hospital Encounter Radiology Library at [facility] [place] [place] [phone] Honorio Vasquez MD [facility] [place] [address] Discharge Disposition: Home Social History Tobacco Use [...] AM EST Hospital Encounter Non[place] [address] Arrived documented as of this encounter Procedures Procedure Name Priority Date/Time Associated Diagnosis Comments FILM LIBRARY STORAGE ONLY DX UPPER EXTREMITY Routine 06/14/2017 12:00 AM EST documented in this encounter Results * Film Library- Storage Only DX Upper Extremity (06/14/2017 12:00 AM EST) Narrative RAD - 01/07/2018 5:50 PM EDT This exam is for storage only and is auto-finalizing. Honorio Vasquez MD IMG FILM LIBRARY ORD ERABLES [place], [place] documented in this encounter Visit Diagnoses Not on filedocumented in this encounter Care Teams Voice Network Engineer Relationship Specialty Start Date End Date Dewayne Carrington MD PCP - General 09/02/16 documented as of this encounter
--- OUTSIDE RECORDS SUMMARY | 2024-05-09 16:21 | XMS_ITS | Encounter Summary ---
Author Organization [facility] Address [place] [address] Care Team Providers Care Retail Advisor Name Role Phone Dewayne Carrington MD Primary Care Provider [phone] Encounter Details Date Type Department Care Team ([facility] Contact Info) Description 09/02/2016 External Results [place] [phone] Danae Sepulveda [address] [place] [phone] Social History Tobacco Use Types Packs/Day Years [...] Upcoming Encounters Date Type Department Care Team ([facility] Contact Info) Description 06/15/2024 10:00 AM EST Hospital Encounter Non-[place]vasive [place] [phone] Arrived documented as of this encounter Procedures Procedure Name Priority Date/Time Associated Diagnosis Comments ECG SCAN Routine 09/02/2016 documented in this encounter Results * Scan Doc: ECG (09/02/2016) Danae Sepulveda MEDIA MGR SCAN EXT O RDR/RSLT documented in this encounter Visit Diagnoses Not on filedocumented in this encounter Care Teams Retail Advisor Relationship Specialty Start Date End Date Dewayne Carrington MD PCP - General 09/02/16 documented as of this encounter
--- OUTSIDE RECORDS SUMMARY | 2024-05-09 16:21 | XMS_ITS | Encounter Summary ---
Author Organization [facility] [place] [address] Care Team Providers Care Appellate Conferee Name Role Phone Dewayne Carrington MD Primary Care Provider [phone] Encounter Details Date Type Department Care Team (Late st Contact Info) Description 01/19/2017 Telephone Cardiology at [address] [phone] Gisselle Sutherland RN Social History Tobacco Use [...] EST Hospital Encounter Non-Invasive [place] [address] Arrived documented as of this encounter Visit Diagnoses Not on filedocumented in this encounter Care Teams Appellate Conferee Relationship Specialty Start Date End Date Dewayne Carrington MD PCP - General 09/02/16 documented as of this encounter
--- OUTSIDE RECORDS SUMMARY | 2024-05-09 16:21 | XMS_ITS | Encounter Summary ---
Author Organization [facility] [place] [address] Care Team Providers Care Jig Bore Tool Maker Name Role Phone Dewayne Carrington MD Primary Care Provider Encounter Details Date Type Department Care Team ([facility] st Contact Info) Description 09/30/2016 3:00 PM EDT Office Visit Cardiology at [address] [phone] Chante Robertson RN Sustained VT (ventricular tachycardia) [...] duration. Patient remains resistant to begin anticoagulation. Pecan Gatherer: Kit Self MD PCP: Dewayne Carrington MD Device Info: New Atrial electrode: Guidant Dextrus Model# 4126-53 cm Serial# [id number], implanted 04/17/2014 ?? Bipolar, steroid-tipped, active-fixation IS-1 lead ?? Access: Axillary vein ?? Location Right atrial appendage Old Ventricular electrode: [employer] [place] Model# 0292 Serial# [id number] ?? Bipolar, steroid-tipped, active-fixation DF-4 lead ?? Access: Axillary vein ?? Location: Right ventricular apex ?? Implanted: 01/10/2014 Pulse generator: [employer] Incepta Model# E162 Serial# [id number] ?? DDDR ICD ?? Location: Subcutaneous Tachy [...] histograms: Reasonable distribution Pacing percentages: AP 15%; TAP AND DIE MAKER TECHNICIAN <1% Mode switch episodes: A burden of [...] AM EST Hospital Encounter [place] [address] Arrived documented as of this encounter Visit Diagnoses Diagnosis Sustained VT (ventricular tachycardia) Paroxysmal ventricular tachycardia documented in this encounter Care Teams Jig Bore Tool Maker Relationship Specialty Start Date End Date Dewayne Carrington MD PCP - General 09/02/16 documented as of this encounter
--- OUTSIDE RECORDS SUMMARY | 2024-05-09 16:21 | XMS_ITS | Encounter Summary ---
Author Organization [facility] [place] [address] Care Team Providers Care Supervisor Name Role Phone Dewayne Carrington MD Primary Care Provider [phone] Reason for Visit * Reason Onset Date Comments Medication Refill 03/03/2017 Encounter Details Date Type Department Care Team (Late Contact Info) Description 03/03/2017 Refill Cardiology at [address] [phone] Kit Self MD [facility] [place] [address] Medication Refill Social History Tobacco Use Types [...] AM EST Hospital Encounter Non-[place] [phone] Arrived documented as of this encounter Visit Diagnoses Not on filedocumented in this encounter Care Teams Supervisor Relationship Specialty Start Date End Date Dewayne Carrington MD PCP - General 09/02/16 documented as of this encounter
--- OUTSIDE RECORDS SUMMARY | 2024-05-09 16:21 | XMS_ITS | Encounter Summary ---
Author Organization [facility] [place] [address] Care Team Providers Care Manager Animal Name Role Phone Dewayne Carrington MD Primary Care Provider [phone] Encounter Details Date Type Department Care Team ([facility] st Contact Info) Description 09/02/2016 [place] [phone] Krystle Carrillo MD [facility] [place] [address] Social History Tobacco Use Types Packs/Day Years [...] 10:07pm Referring Provider: Dr. Sepulveda Patient Location: [facility] Past Medical History: Patient Active Problem List [...] sustained VT s/p ICD who presents to [facility] with headache and high BP 150s-160s/90s. Patient was concerned that his ICD would be triggered due to the hypertension, therefore, he [facility]. Patient complained of intermittent palpitations over the [...] Sepulveda is asking whether she should have [employer] interrogate the pacer tonight. Pertinent Diagnostic Findings: [...] character), patient should follow up with his wind turbine installer, Dr. Self within a week. I will [...] have personally reviewed EKGs. Krystle Carrillo MD Airborne Operations PGY-4 Pager: [phone] documented in this encounter Plan of Treatment Upcoming Encounters Date Type Department Care Team (Late st Contact Info) Description 06/15/2024 10:00 AM EST Hospital Encounter [place] [address] Arrived documented as of this encounter Visit Diagnoses Not on filedocumented in this encounter Care Teams Manager Animal Relationship Specialty Start Date End Date Dewayne Carrington MD PCP - General 09/02/16 documented as of this encounter
--- OUTSIDE RECORDS SUMMARY | 2024-05-09 16:21 | XMS_ITS | Encounter Summary ---
Author Organization [facility] Address [facility] [place] [address] Care Team Providers Care Operations Director Name Role Phone Dewayne Carrington MD Primary Care Provider [phone] Encounter Details Date Type Department Care Team ([facility] st Contact Info) Description 01/27/2017 3:00 PM EDT Office Visit Cardiology at [address] [phone] Kit Self MD [facility] [address] PAF (paroxysmal atrial fibrillation); Glucose intolerance (impaired [...] Self MD - 01/27/2017 3:00 PM EDT [facility] [place] [address] CARDIOLOGY OUTPATIENT FOLLOW-UP NOTE Marquez Hendrix [id number] PCP: Dewayne Carrington MD 01/27/2017 PRIMARY CARE PROVIDER: Dewayne Carrington MD PROBLEM LIST: Patient Active Problem List Diagnosis ??? ASCVD (arteriosclerotic cardiovascular disease) ?? Heart catheterization in [facility] in 2007 with placement of a stent in an unspecified vessel ?? Repeat heart catheterization in 2008 with placement of stents to both the LAD and circumflex ?? Followup heart catheterization in 2008 showing stable results in both vessels ?? Recurrent chest discomfort in a somewhat atypical pattern beginning fall ?? Nuclear stress test at [facility] in [place], [place] May 02, 2013 during which he developed left shoulder and arm discomfort during submaximal exercise on the treadmill and after which he was converted to a pharmacologic test; nuclear imaging showed ejection fraction of 45% with a partially reversible inferior defect ?? Cath [facility] 05/13/2013: normal left main, mild diffuse disease throughout the LAD with an 80% mid stenosis representing a restenosis lesion, mild diffuse disease in the proximal obtuse marginal branch, and mild diffuse disease throughout the right coronary artery; status post 3.0 X 12 mm JON to 80%mid-LAD lesion (in-stent restenosis) ?? Heart catheterization [facility] January 06, 2014 showing normal left main, hazy 50% mid LAD stenosis, mild diffuse disease throughout the circumflex, and moderate diffuse disease in the proximal RCA with a totally occluded distal RCA with brisk flow via bridging collaterals; fractional flow reserveon the LAD 0.85 ?? Nuclear stress test [facility] August 2016 reportedly showing a small area of inferior ischemia (final report pending) ?? Echo 11/06/16 showing inferior HK with EF 49%; no valvular disease ??? Typical atrial flutter ?? Occurred 06/08/13, lasted about 24 hours, and v rate about 80 (documented on ICD interrogation 07/18/14) ?? [id number] score = 3 ?? Patient initially reluctant to be anticoagulated as recommended ??? Atrial pacemaker lead displacement New finding at office follow up 04/10/2014 Plan lead reposition/replacement ??? ICD (implantable cardioverter-defibrillator), dual, in situ New Atrial electrode: Guidant Dextrus Model# 4126-53 cm Serial# [id number] ?? Bipolar, steroid-tipped, active-fixation IS-1 lead ?? [...] at 10 V: No Old Ventricular electrode: [employer] [place] Model# 0292 Serial# [id number] ?? Bipolar, steroid-tipped, active-fixation DF-4 lead ?? [...] Atrial electrode: Guidant Dextrus Model# 4136 Serial# [id number] ?? Bipolar, steroid-tipped, active-fixation IS-1 lead ?? Access: Axillary vein ?? Location Removed 04/17/2014 ?? Implanted: 01/10/2014 Pulse generator: [employer] Incepta Model# E162 Serial# [id number] ?? DDDR ICD ?? Location: Subcutaneous The [...] apparently seen in the emergency department at [facility] on 2016 with feelings of profound [...] AM EST Hospital Encounter [place] [address] Arrived Scheduled Orders Name Type [...] test documented in this encounter Care Teams Operations Director Relationship Specialty Start Date End Date Raser, Dewayne, MD PCP - General 09/02/16 documented as of this encounter
--- OUTSIDE RECORDS SUMMARY | 2024-05-09 16:21 | XMS_ITS | Encounter Summary ---
[place] [address] Care Team Providers Care Marina Porter Name Role Phone Dewayne Carrington MD Primary Care Provider [phone] Encounter Details Date Type Department Care Team (Late st Contact Info) Description 07/07/2017 Orders Only Cardiology at [address] [phone] Social History Tobacco Use Types Packs/Day Years [...] AM EST Hospital Encounter [place] [address] Arrived documented as of this encounter Procedures Procedure Name Priority Date/Time Associated Diagnosis Comments CARDIAC DEVICE CHECK - REMOTE SCHEDULED Routine 07/07/2017 12:42 AM EDT documented in this encounter Results * Cardiac device check - Remote Scheduled (07/07/2017 12:42 AM EDT) Date Time Interrogation Session [id number] IDCO Type Interrogation Session Remote Scheduled IDCO Clinic Name [facility] IDCO Battery Date Time of Measurements IDCO Battery Status Beginning of Service IDCO Battery Remaining Longevity 96 mo IDCO Battery Remaining Percentage 100 % IDCO Capacitor Last Charge Date Time IDCO Capacitor Charge Time 10.5 s IDCO Capacitor Charge Type Reformation IDCO Capacitor Last Charge Date Time [id number] IDCO Capacitor Charge Time 3.8 s IDCO [...] IDCO Episode Identifier IDCO Episode Date Time [id number] IDCO Episode Type Category Other IDCO Episode [...] IDCO Episode Identifier IDCO Episode Date Time [id number] IDCO Episode Type Category Other IDCO Episode Vendor Type Category XANDER IDCO Episode Detection Interval Ventricular 822 ms IDCO Episode Duration 51 s IDCO Episode Detection And Therapy Details IDCO Episode Identifier IDCO Episode Date Time [id number] IDCO Episode Type Category Other IDCO Episode [...] Episode Identifier V-346 IDCO Episode Date Time [id number] IDCO Episode Type Category VT IDCO Episode Vendor Type Category NSVT IDCO Episode Type Induced Flag NO IDCO Episode Detection Interval Ventricular 373 ms IDCO Episode Duration 8 s IDCO Episode Detection And Therapy Details NonSustV IDCO Episode Identifier V-345 IDCO Episode Date Time [id number] IDCO Episode Type Category VT IDCO Episode Vendor Type Category NSVT IDCO Episode Type Induced Flag NO IDCO Episode Detection Interval Ventricular 359 ms IDCO Episode Duration 7 s IDCO Episode Detection And Therapy Details NonSustV IDCO Episode Identifier ATR-163 IDCO Episode Date Time [id number] IDCO Episode Type Category AT/AF IDCO Episode Vendor Type Category ATR IDCO Episode Detection Interval Atrial 252 ms IDCO Episode Duration 73 s IDCO Episode Detection And Therapy Details ATR IDCO Episode Identifier ATR-162 IDCO Episode Date Time [id number] IDCO Episode Type Category AT/AF IDCO Episode Vendor Type Category ATR IDCO Episode Detection Interval Atrial 258 ms IDCO Episode Duration 91 s IDCO Episode Detection And Therapy Details ATR IDCO Episode Identifier V-344 IDCO Episode Date Time [id number] IDCO Episode Type Category VT IDCO Episode Vendor Type Category NSVT IDCO Episode Type Induced Flag NO IDCO Episode Detection Interval Ventricular 368 ms IDCO Episode Duration 6 s IDCO Episode Detection And Therapy Details NonSustV IDCO Episode Identifier ATR-161 IDCO Episode Date Time [id number] IDCO Episode Type Category AT/AF IDCO Episode Vendor Type Category ATR IDCO Episode Detection Interval Atrial 256 ms IDCO Episode Duration 2,512 s IDCO Episode Detection And Therapy Details ATR IDCO Episode Identifier ATR-160 IDCO Episode Date Time [id number] IDCO Episode Type Category AT/AF IDCO Episode Vendor Type Category ATR IDCO Episode Detection Interval Atrial 233 ms IDCO Episode Duration 317 s IDCO Episode Detection And Therapy Details ATR IDCO Episode Identifier V-343 IDCO Episode Date Time [id number] IDCO Episode Type Category VT IDCO Episode Vendor Type Category NSVT IDCO Episode Type Induced Flag NO IDCO Episode Detection Interval Ventricular 357 ms IDCO Episode Duration 8 s IDCO Episode Detection And Therapy Details NonSustV IDCO Episode Identifier V-342 IDCO Episode Date Time [id number] IDCO Episode Type Category VT IDCO Episode Vendor Type Category NSVT IDCO Episode Type Induced Flag NO IDCO Episode Detection Interval Ventricular 364 ms IDCO Episode Duration 9 s IDCO Episode Detection And Therapy Details NonSustV IDCO Episode Identifier V-341 IDCO Episode Date Time [id number] IDCO Episode Type Category VT IDCO Episode Vendor Type Category NSVT IDCO Episode Type Induced Flag NO IDCO Episode Detection Interval Ventricular 373 ms IDCO Episode Duration 8 s IDCO Episode Detection And Therapy Details NonSustV IDCO Episode Identifier V-340 IDCO Episode Date Time [id number] IDCO Episode Type Category VT IDCO Episode Vendor Type Category NSVT IDCO Episode Type Induced Flag NO IDCO Episode Detection Interval Ventricular 359 ms IDCO Episode Duration 7 s IDCO Episode Detection And Therapy Details NonSustV IDCO Episode Identifier V-339 IDCO Episode Date Time [id number] IDCO Episode Type Category VT IDCO Episode Vendor Type Category NSVT IDCO Episode Type Induced Flag NO IDCO Episode Detection Interval Ventricular 368 ms IDCO Episode Duration 8 s IDCO Episode Detection And Therapy Details NonSustV IDCO Episode Identifier V-338 IDCO Episode Date Time [id number] IDCO Episode Type Category VT IDCO Episode [...] Episode Identifier ATR-158 IDCO Episode Date Time [id number] IDCO Episode Type Category AT/AF IDCO Episode [...] E162 IDCO Implantable Pulse Generator Serial Number [id number] IDCO Implantable Pulse Generator Displayer Merchandise [place] [place] [employer] IDCO Implantable Pulse Generator Implant Date 20140110 IDCO Implantable Lead Model 4136 IDCO Implantable Lead Serial Number [id number] IDCO Implantable Lead Displayer Merchandise Guidant IDCO Implantable Lead Implant Date 20130421 IDCO Implantable Lead Polarity Type Bipolar Lead IDCO Implantable Lead Location Right Atrium IDCO Implantable Lead Model 0292 IDCO Implantable Lead Serial Number [id number] IDCO Implantable Lead Displayer Merchandise [place] [employer] IDCO Implantable Lead Implant Date IDCO [...] IDCO Lead Channel Pacing Threshold Measurement Method Gliding Pilot Instructor Manual IDCO Lead Channel Pacing Threshold [...] IDCO Lead Channel Pacing Threshold Measurement Method Gliding Pilot Instructor Manual IDCO Lead Channel Pacing Threshold [...] on filedocumented in this encounter Care Teams Marina Porter Relationship Specialty Start Date End Date Dewayne Carrington MD PCP - General 09/02/16 documented as of this encounter
--- OUTSIDE RECORDS SUMMARY | 2024-05-09 16:21 | XMS_ITS | Encounter Summary ---
Author Organization [facility] [place] [address] Care Team Providers Care Tobacco Sorter Name Role Phone Dewayne Carrington MD Primary Care Provider [phone] Encounter Details Date Type Department Care Team (Late st Contact Info) Description 01/20/2017 Telephone Cardiology at [address] [phone] Gisselle Sutherland RN Social History Tobacco Use [...] AM EST Hospital Encounter Non-[place] [address] Arrived documented as of this encounter Visit Diagnoses Not on filedocumented in this encounter Care Teams Tobacco Sorter Relationship Specialty Start Date End Date Dewayne Carrington MD PCP - General 09/02/16 documented as of this encounter
--- OUTSIDE RECORDS SUMMARY | 2024-05-09 16:21 | XMS_ITS | Encounter Summary ---
Author Organization [facility] Address [facility] [place] [address] Care Team Providers Care Electronic System Engineer Name Role Phone Dewayne Carrington MD Primary Care Provider [phone] Encounter Details Date Type Department Care Team (Latest Contact Info) Description 07/08/2017 - 07/08/2017 11:59 PM EDT Hospital Encounter Radiology Library at [facility] [place] [phone] Honorio Vasquez MD [facility] [place] [address] Discharge Disposition: Home Social History Tobacco Use [...] AM EST Hospital Encounter [place] [address] Arrived documented as of this [...] Vasquez MD IMG FILM LIBRARY ORD ERABLES [place], [place] documented in this encounter Visit Diagnoses Not on filedocumented in this encounter Care Teams Electronic System Engineer Relationship Specialty Start Date End Date Dewayne Carrington MD PCP - General 09/02/16 documented as of this encounter
--- OUTSIDE RECORDS SUMMARY | 2024-05-09 16:21 | XMS_ITS | Encounter Summary ---
Author Organization [facility] [place] [address] Care Team Providers Care Concrete Stone Finishing Supervisor Name Role Phone Dewayne Carrington MD Primary Care Provider [phone] Encounter Details Date Type Department Care Team (Late st Contact Info) Description 09/11/2016 External Results Cardiology at [address] [phone] Kit Self MD [facility] [place] [address] Social History Tobacco Use Types Packs/Day Years [...] AM EST Hospital Encounter Non-[place] [phone] Arrived documented as of this encounter Procedures Procedure Name Priority Date/Time Associated Diagnosis Comments EP DEVICE SCAN Routine 09/04/2016 documented in this encounter Results * Scan Doc: EP Device (09/04/2016) Anatomical Region Laterality Modality Other Kit Self MD MEDIA MGR SCAN EXT O RDR/RSLT documented in this encounter Visit Diagnoses Not on filedocumented in this encounter Care Teams Concrete Stone Finishing Supervisor Relationship Specialty Start Date End Date Dewayne Carrington MD PCP - General 09/02/16 documented as of this encounter
--- OUTSIDE RECORDS SUMMARY | 2024-05-09 16:21 | XMS_ITS | Encounter Summary ---
Author Organization [facility] [place] [address] Care Team Providers Care Centrifuge Separator Tender Name Role Phone Dewayne Carrington MD Primary Care Provider [phone] Reason for Referral * Diagnostic Test (Routine) - Closed Specialty Diagnoses / Procedures Referred By Contac t Referred To Contact Cardiology Diagnoses Coronary artery disease involving [place] coronary artery of [place] heart without angina pectoris Procedures Echocardiogram Transthoracic(Leb) Huy Butler MD [facility] [place] [address] [facility] [place] [address] Referral ID Status Reason Start Date Expiration Date V isits Requested Visits Authorized [id number] Closed Specialty Service Requested 10/01/2016 10/01/2017 1 1 Encounter Details Date Type Department Care Team (Late st Contact Info) Description 10/01/2016 [place] [address] Huy Butler MD [facility] [place] [address] Coronary artery disease involving [place] coronary artery of [place] heart without angina pectoris Social History Tobacco [...] AM EST Hospital Encounter Non-Invasive [place] [address] Arrived documented as of this encounter Results * ECHO COMPLETE W CONTRAST (11/06/2016 11:56 AM EDT) EF 49 HEARTLAB SYSTEM Anatomical Region Laterality Modality Other 11/06/2016 Narrative 11/06/2016 12:33 PM EDT Procedure: ?Transthoracic Echocardiogram Patient: ?SIMEON CHRISTIE P ?(Age): 1950(66y) Med Rec#: ? [id number] ?Sex: ?M ? Site Loc: ? [facility] ?Ht / Wt: ??185(cm)/91(kg) Pt. Loc: ?Echo Lab ?BSA: ?2.15 Study Date: ?? 11/06/2016 ?Pt. Type: Outpatient Tape: ? Referring: CAS Referring: Kit Self Reading: Huseyin Espinoza ([id number]) Pbx Manager: Stef Hayden Diagnosis: *ICD-10-PCS Atherosclerotic heart disease of [place] coronary artery without angina pectoris (I25.10) CPT Codes: *Echo Full (82111) *Spectral Doppler (19651) *Color Doppler (69287) *Optison (75604MR) Rhythm: ? Paced rhythm BP: ? 115/72 [...] E-wave Vmax ?0.7 ?m/sec ? MV deceleration kluj706.6 ?msec ? MV A-wave Vmax ?0.7 ?m/sec [...] ? Mid-Inferior ?Hypokinetic ? Mid-Inferoseptal ?Normal ? Boss-Septal ? Normal ? Boss-Anterior ? Normal ? Boss-Lateral ?Normal ? Boss-Inferior ? Hypokinetic ? Boss-Tip ?Normal ? This report has been electronically signed by: Huseyin Espinoza MD ? 11/06/2016 12:33:49 Images reviewed and interpretation verified [facility] Cardiac Ultrasound Laboratory Procedure Note Huseyin Espinoza MD - 11/06/2016 Procedure: Transthoracic Echocardiogram Patient: SIMEON Gordon (Age): 1950(66y) Med Rec#: [id number] Sex: M Site Loc: [facility] Ht / Wt: 185(cm)/91(kg) Pt. Loc: Echo Lab BSA: 2.15 Study Date: 11/06/2016 Pt. Type: Outpatient Tape: Referring: CAS Referring: Kit Self Reading: Huseyin Espinoza ([id number]) Pbx Manager: Stef Hayden Diagnosis: *ICD-10-PCS Atherosclerotic heart disease of [place] coronary artery without angina pectoris (I25.10) CPT Codes: *Echo Full (27810) *Spectral Doppler (17090) *Color Doppler (25411) *Optison (22062OD) Rhythm: Paced rhythm BP: 115/72 SUMMARY: 1. [...] MV E-wave Vmax 0.7 m/sec MV deceleration [id number] msec MV A-wave Vmax 0.7 m/sec MV [...] Normal Mid-Posterolateral Normal Mid-Inferior Hypokinetic Mid-Inferoseptal Normal Boss-Septal Normal Boss-Anterior Normal Boss-Lateral Normal Boss-Inferior Hypokinetic Boss-Tip Normal This report has been electronically signed by: Huseyin Espinoza MD 11/06/2016 12:33:49 Images reviewed and interpretation verified [facility] Cardiac Ultrasound Laboratory Kit Self MD ECHO ORDERABLES documented in this encounter Visit Diagnoses Diagnosis Coronary artery disease involving [place] coronary artery of [place] heart without angina pectoris Coronary artery disease involving [place] coronary artery of [place] heart without angina pectoris documented in this encounter Care Teams Centrifuge Separator Tender Relationship Specialty Start Date End Date Dewayne Carrington MD PCP - General 09/02/16 documented as of this encounter
--- OUTSIDE RECORDS SUMMARY | 2024-05-09 16:21 | XMS_ITS | Encounter Summary ---
[place] [address] Care Team Providers Care Routing Machine Operator Name Role Phone Dewayne Carrington MD Primary Care Provider [phone] Encounter Details Date Type Department Care Team ([facility] Contact Info) Description 01/12/2017 External Results Cardiology at [address] [phone] Dewayne Carrington MD [address] [place] [id number] Social History Tobacco Use Types Packs/Day Years [...] AM EST Hospital Encounter Non-[place] [address] Arrived documented as of this encounter Procedures Procedure Name Priority Date/Time Associated Diagnosis Comments EP DEVICE SCAN Routine 01/06/2017 documented in this encounter Results * Scan Doc: EP Device (01/06/2017) Anatomical Region Laterality Modality Other Dewayne Carrington MD MEDIA MGR SCAN EXT O RDR/RSLT documented in this encounter Visit Diagnoses Not on filedocumented in this encounter Care Teams Routing Machine Operator Relationship Specialty Start Date End Date Dewayne Carrington MD PCP - General 09/02/16 documented as of this encounter
--- OUTSIDE RECORDS SUMMARY | 2024-05-09 16:22 | XMS_ITS | Encounter Summary ---
Author Organization [facility] [place] [address] Care Team Providers Care Invoice Clerk Name Role Phone Ángel Bingham MD Primary Care Provider [phone] Reason for Visit * Reason Comments Medication Refill Encounter Details Date Type Department Care Team (Late st Contact Info) Description 03/03/2015 Refill Cardiology at [address] [phone] Kit Self MD [facility] [place] [address] Medication Refill Social History Tobacco Use Types [...] AM EST Hospital Encounter Non-[place] [phone] Arrived documented as of this encounter Visit Diagnoses Not on filedocumented in this encounter Care Teams Invoice Clerk Relationship Specialty Start Date End Date Ángel Bingham MD [facility] [address] [place] [address] [place] [address] PCP - General 01/31/14 09/01/16 documented as of this encounter
--- OUTSIDE RECORDS SUMMARY | 2024-05-09 16:22 | XMS_ITS | Encounter Summary ---
[place] [address] Care Team Providers Care Merchant Police Name Role Phone Ángel Bingham MD Primary Care Provider [phone] Reason for Visit * Reason Onset Date Comments Medication Management 2015 Encounter Details Date Type Department Care Team (Late st Contact Info) Description 2015 Telephone Cardiology at [address] [phone] Rosanna Morrow, scrap sawyer Management Social History Tobacco Use Types Packs/Day [...] Hospital Encounter Non-[place] [address] Arrived documented as of this encounter Visit Diagnoses Not on filedocumented in this encounter Care Teams Merchant Police Relationship Specialty Start Date End Date Ángel Bingham MD [facility] [address] [place] [address] PCP - General 01/31/14 09/01/16 documented as of this encounter
--- OUTSIDE RECORDS SUMMARY | 2024-05-09 16:22 | XMS_ITS | Encounter Summary ---
Author Organization [facility] [place] [address] Care Team Providers Care Carousel Operator Name Role Phone Ángel Bingham MD Primary Care Provider [phone] Reason for Visit * Reason Comments Cardiomyopathy Encounter Details Date Type Department Care Team (Late st Contact Info) Description 07/11/2015 3:00 PM EDT Office Visit Cardiology at [address] [phone] Raul Lopes, NAHUN ICD (implantable cardioverter-defibril lator), [...] in duration. Patient resistant to begin anticoagulation. Aircraft Electrician: Kit Self MD PCP: ÁNGEL BINGHAM MD Final Parameters: New Atrial electrode: Guidant Dextrus Model# 4126-53 cm Serial# [id number] ?? Bipolar, steroid-tipped, active-fixation IS-1 lead ?? [...] at 10 V: No Old Ventricular electrode: E[employer] [place] Model# 0292 Serial# [id number] ?? Bipolar, steroid-tipped, active-fixation DF-4 lead ?? [...] Atrial electrode: Guidant Dextrus Model# 4136 Serial# [id number] ?? Bipolar, steroid-tipped, active-fixation IS-1 lead ?? Access: Axillary vein ?? Location Removed 04/17/2014 ?? Implanted: 01/10/2014 Pulse generator: Eudora [employer] Incepta Model# E162 Serial# [id number] ?? DDDR ICD ?? Location: Subcutaneous Tachy [...] histograms: Reasonable distribution Pacing percentages: AP 35%; CREATIVE INTERN <1% Mode switch episodes: 36 events in [...] AM EST Hospital Encounter Non[place] [address] Arrived documented as of this encounter Visit Diagnoses Diagnosis ICD (implantable cardioverter-defibrillator), dual, in situ Sustained VT (ventricular tachycardia) Paroxysmal ventricular tachycardia Typical atrial flutter Atrial flutter documented in this encounter Care Teams Carousel Operator Relationship Specialty Start Date End Date Ángel Bingham MD [facility] [address] [place] [address] PCP - General 01/31/14 09/01/16 documented as of this encounter
--- OUTSIDE RECORDS SUMMARY | 2024-05-09 16:22 | XMS_ITS | Encounter Summary ---
[place] [address] Care Team Providers Care Meat Wrapper Name Role Phone Ángel Bingham MD Primary Care Provider [phone] Encounter Details Date Type Department Care Team (Late st Contact Info) Description 06/04/2015 Orders Only Cardiology at [address] [phone] Social History Tobacco Use Types Packs/Day Years [...] AM EST Hospital Encounter [place] [address] Arrived documented as of this encounter Procedures Procedure Name Priority Date/Time Associated Diagnosis Comments CARDIAC DEVICE CHECK - REMOTE PATIENT INITIATED Routine 06/04/2015 5:00 PM EST documented in this encounter Results * Cardiac device check - Remote Patient Initiated (06/04/2015 5:00 PM EST) Date Time Interrogation Session [id number] IDCO Type Interrogation Session Remote Patient Initiated IDCO Clinic Name [facility] IDCO Battery Date Time of Measurements [id number] IDCO Battery Status Beginning of Service IDCO Battery Remaining Longevity 126 mo IDCO Battery Remaining Percentage 100 % IDCO Capacitor Last Charge Date Time [id number] IDCO Capacitor Charge Time 10.1 s IDCO Capacitor Charge Type Reformation IDCO Capacitor Last Charge Date Time [id number] IDCO Capacitor Charge Time 3.8 s IDCO Capacitor Charge Energy 21 J IDCO Capacitor Charge Type Shock IDCO Episode Identifier APM-13 IDCO Episode Date Time [id number] IDCO Episode Type Category Periodic EGM IDCO Episode Vendor Type Category APMRT IDCO Episode Detection And Therapy Details Presenting EGM [id number] Episode Date Time [id number] IDCO Episode Type Category Other IDCO Episode Vendor Type Category XANDER IDCO Episode Detection Interval Ventricular 1,091 ms IDCO Episode Duration 62 s IDCO Episode Detection And Therapy Details ID[facility] Episode Identifier [id number] Episode Date Time [id number] IDCO Episode Type Category Other IDCO Episode Vendor Type Category XANDER IDCO Episode Detection Interval Ventricular 870 ms IDCO Episode Duration 56 s IDCO Episode Detection And Therapy Details IDCO Episode Identifier AL- IDCO Episode Date Time [id number] IDCO Episode Type Category Other IDCO Episode Vendor Type Category XANDER IDCO Episode Detection Interval Ventricular 1,071 ms IDCO Episode Duration 62 s IDCO Episode Detection And Therapy Details IDCO Episode Identifier ALQ- IDCO Episode Date Time [id number] IDCO Episode Type Category Other IDCO Episode Vendor Type Category XANDER IDCO Episode Detection Interval Ventricular 923 ms IDCO Episode Duration 49 s IDCO Episode Detection And Therapy Details IDCO Episode Identifier AL IDCO Episode Date Time [id number] IDCO Episode Type Category Other IDCO Episode Vendor Type Category XANDER IDCO Episode Detection Interval Ventricular 896 ms IDCO Episode Duration 53 s IDCO Episode Detection And Therapy Details IDCO Episode Identifier ALQ- IDCO Episode Date Time [id number] IDCO Episode Type Category Other IDCO Episode Vendor Type Category XANDER IDCO Episode Detection Interval Ventricular 1,304 ms IDCO Episode Duration 63 s IDCO Episode Detection And Therapy Details RYMIQ IDCO Episode Identifier [id number] IDCO Episode Date Time IDCO Episode Type Category Other IDCO Episode Vendor Type Category XANDER IDCO Episode Detection Interval Ventricular 1,017 ms IDCO Episode Duration 59 s IDCO Episode Detection And Therapy Details RYMIQ IDCO Episode Identifier [id number] IDCO Episode Date Time IDCO Episode Type [...] IDCO Episode Identifier IDCO Episode Date Time [id number] IDCO Episode Type Category VT IDCO Episode Vendor Type Category NSVT IDCO Episode Type Induced Flag NO IDCO Episode Detection Interval Ventricular 353 ms IDCO Episode Duration 6 s IDCO Episode Detection And Therapy Details NonSustV IDCO Episode Identifier IDCO Episode Date Time [id number] IDCO Episode Type Category VT IDCO Episode Vendor Type Category NSVT IDCO Episode Type Induced Flag NO IDCO Episode Detection Interval Ventricular 373 ms IDCO Episode Duration 6 s IDCO Episode Detection And Therapy Details NonSustV IDCO Episode Identifier [id number] IDCO Episode Date Time [id number] IDCO Episode Type Category Other IDCO Episode Vendor Type Category XANDER IDCO Episode Detection Interval Ventricular 909 ms IDCO Episode Duration 55 s IDCO Episode Detection And Therapy Details RYTHMIQ IDCO Episode Identifier - IDCO Episode Date Time [id number] IDCO Episode Type Category VT IDCO Episode Vendor Type Category NSVT IDCO Episode Type Induced Flag NO IDCO Episode Detection Interval Ventricular 330 ms IDCO Episode Duration 11 s IDCO Episode Detection And Therapy Details NonSustV IDCO Episode Identifier ATR-32 IDCO Episode Date Time [id number] IDCO Episode Type Category AT/AF IDCO Episode Vendor Type Category ATR IDCO Episode Detection Interval Atrial 276 ms IDCO Episode Duration 25 s IDCO Episode Detection And Therapy Details ATR IDCO Episode Identifier ATR-31 IDCO Episode Date Time [id number] IDCO Episode Type Category AT/AF IDCO Episode Vendor Type Category ATR IDCO Episode Detection Interval Atrial 284 ms IDCO Episode Duration 23 s IDCO Episode Detection And Therapy Details ATR IDCO Episode Identifier V-11 IDCO Episode Date Time [id number] IDCO Episode Type Category VT IDCO Episode Vendor Type Category NSVT IDCO Episode Type Induced Flag NO IDCO Episode Detection Interval Ventricular 375 ms IDCO Episode Duration 17 s IDCO Episode Detection And Therapy Details NonSustV IDCO Episode Identifier V-10 IDCO Episode Date Time [id number] IDCO Episode Type Category VT IDCO Episode [...] E162 IDCO Implantable Pulse Generator Serial Number [id number] IDCO Implantable Pulse Generator Bar Machine Operator Production [employer] IDCO Implantable Pulse Generator Implant Date 20140110 IDCO Implantable Lead Model 4136 IDCO Implantable Lead Serial Number [id number] IDCO Implantable Lead Bar Machine Operator Production Guidant IDCO Implantable Lead Implant Date 20130421 IDCO Implantable Lead Polarity Type Bipolar Lead IDCO Implantable Lead Location Right Atrium IDCO Implantable Lead Model 0292 IDCO Implantable Lead Serial Number [id number] IDCO Implantable Lead Bar Machine Operator Production [employer] IDCO Implantable Lead Implant Date IDCO [...] Lead Channel Pacing Threshold Measurement Method Research Administrator Manual IDCO Lead Channel Pacing Threshold [...] Lead Channel Pacing Threshold Measurement Method Research Administrator Manual IDCO Lead Channel Pacing Threshold [...] on filedocumented in this encounter Care Teams Meat Wrapper Relationship Specialty Start Date End Date Ángel Bingham MD [facility] [address] [place] [address] PCP - General 01/31/14 09/01/16 documented as of this encounter
--- OUTSIDE RECORDS SUMMARY | 2024-05-09 16:22 | XMS_ITS | Encounter Summary ---
[place] [address] Care Team Providers Care Mental Health Aide Name Role Phone Ángel Bingham MD Primary Care Provider [phone] Encounter Details Date Type Department Care Team (Late st Contact Info) Description 10/19/2015 External Results Cardiology at [address] [phone] Ángel Bingham MD [facility] [address] [place] [address] Social History Tobacco Use Types Packs/Day Years [...] EST Hospital Encounter Non-Invasive [place] [address] Arrived documented as of this encounter Procedures Procedure Name Priority Date/Time Associated Diagnosis Comments EP DEVICE SCAN Routine 10/16/2015 documented in this encounter Results * Scan Doc: EP Device (10/16/2015) Anatomical Region Laterality Modality Other Ángel Bingham MD MEDIA MGR SCAN EXT O RDR/RSLT documented in this encounter Visit Diagnoses Not on filedocumented in this encounter Care Teams Mental Health Aide Relationship Specialty Start Date End Date Ángel Bingham MD [facility] [address] [place] [address] PCP - General 01/31/14 09/01/16 documented as of this encounter
--- OUTSIDE RECORDS SUMMARY | 2024-05-09 16:22 | XMS_ITS | Encounter Summary ---
Author Organization [facility] [address] Care Team Providers Care Senior National Account Manager Name Role Phone Ángel Bingham MD Primary Care Provider [phone] Reason for Visit * Reason Comments Medication Refill Encounter Details Date Type Department Care Team (Late st Contact Info) Description 04/12/2016 Refill Cardiology at [address] [phone] [facility] [address] Medication Refill Social History Tobacco Use Types [...] AM EST Hospital Encounter Non-[place] [phone] Arrived documented as of this encounter Visit Diagnoses Not on filedocumented in this encounter Care Teams Senior National Account Manager Relationship Specialty Start Date End Date Ángel Bingham MD [facility] [address] [place] [address] PCP - General 01/31/14 09/01/16 documented as of this encounter
--- OUTSIDE RECORDS SUMMARY | 2024-05-09 16:22 | XMS_ITS | Encounter Summary ---
Author Organization [place] [address] Care Team Providers Care Lease Administration Analyst Name Role Phone Ángel Bingham MD Primary Care Provider [phone] Reason for Visit * Reason Comments Ventricular Arrhythmia Encounter Details Date Type Department Care Team (Late st Contact Info) Description 01/14/2016 1:00 PM EDT Office Visit Cardiology at [address] [phone] Catherine Roberts RN Sustained [place] (ventricular tachycardia) [...] duration. Patient remains resistant to begin anticoagulation. Air Crew Member: Kit Self MD PCP: ÁNGEL BINGHAM MD Device Info: New Atrial electrode: Guidant Dextrus Model# 4126-53 cm Serial# [id number], implanted 04/17/2014 ?? Bipolar, steroid-tipped, active-fixation IS-1 lead ?? Access: Axillary vein ?? Location Right atrial appendage Old Ventricular electrode: [employer] [place] Model# 0292 Serial# [id number] ?? Bipolar, steroid-tipped, active-fixation DF-4 lead ?? Access: Axillary vein ?? Location: Right ventricular apex ?? Implanted: 01/10/2014 Pulse generator: [employer] Incepta Model# E162 Serial# [id number] ?? DDDR ICD ?? Location: Subcutaneous Tachy [...] histograms: Reasonable distribution Pacing percentages: AP 31%; SKIVER MACHINE <1% Mode switch episodes: 28 events in [...] __ Andres Sosa MD Cardiac Electrophysiology Services [facility] documented in this encounter Plan of Treatment Upcoming Encounters Date Type Department Care Team (Late st Contact Info) Description 06/15/2024 10:00 AM EST Hospital Encounter Non-[place] [address] Arrived documented as of this encounter Visit Diagnoses Diagnosis Sustained [place] (ventricular tachycardia) Paroxysmal ventricular tachycardia documented in this encounter Care Teams Lease Administration Analyst Relationship Specialty Start Date End Date Ángel Bingham MD [facility] 1 [facility] [place] [address] PCP - General 01/31/14 09/01/16 documented as of this encounter
--- OUTSIDE RECORDS SUMMARY | 2024-05-09 16:22 | XMS_ITS | Encounter Summary ---
[place] [address] Care Team Providers Care Secondary Connector Armature Name Role Phone Ángel Bingham MD Primary Care Provider [phone] Encounter Details Date Type Department Care Team (Late st Contact Info) Description 04/15/2016 Orders Only Cardiology at [address] [phone] Social History Tobacco Use Types Packs/Day Years [...] AM EST Hospital Encounter Non-[place]vasive [place] [address] Arrived documented as of this encounter Procedures Procedure Name Priority Date/Time Associated Diagnosis Comments CARDIAC DEVICE CHECK - REMOTE SCHEDULED Routine 04/15/2016 12:42 AM EST documented in this encounter Results * (ABNORMAL) Cardiac device check - Remote Scheduled (04/15/2016 12:42 AM EST) Date Time Interrogation Session [id number] IDCO Type Interrogation Session Remote Scheduled IDCO Clinic Name [facility] IDCO Battery Date Time of Measurements [id number] IDCO Battery Status Beginning of Service IDCO Battery Remaining Longevity 108 mo IDCO Battery Remaining Percentage 100 % IDCO Capacitor Last Charge Date Time [id number] IDCO Capacitor Charge Time 10.3 s IDCO Capacitor Charge Type Reformation IDCO Capacitor Last Charge Date Time [id number] IDCO Capacitor Charge Time 3.8 s IDCO Capacitor Charge Energy 21 J IDCO Capacitor Charge Type Shock IDCO Episode Identifier APM-17 IDCO Episode Date Time [id number] IDCO Episode Type Category Periodic EGM IDCO Episode Vendor Type Category APMRT IDCO Episode Detection And Therapy Details Presenting EGM IDCO Episode Identifier [id number] IDCO Episode Date Time [id number] IDCO Episode Type Category Other IDCO Episode Vendor Type Category XANDER IDCO Episode Detection Interval Ventricular 1,017 ms IDCO Episode Duration 61 s IDCO Episode Detection And Therapy Details IDCO Episode Identifier [id number] IDCO Episode Date Time [id number] IDCO Episode Type Category Other IDCO Episode Vendor Type Category XANDER IDCO Episode Detection Interval Ventricular 1,034 ms IDCO Episode Duration 63 s IDCO Episode Detection And Therapy Details IDCO Episode Identifier [id number] IDCO Episode Date Time [id number] IDCO Episode Type Category Other IDCO Episode Vendor Type Category XANDER IDCO Episode Detection Interval Ventricular 968 ms IDCO Episode Duration 59 s IDCO Episode Detection And Therapy Details IDCO Episode Identifier [id number] IDCO Episode Date Time [id number] IDCO Episode Type Category Other IDCO Episode Vendor Type Category XANDER IDCO Episode Detection Interval Ventricular 984 ms IDCO Episode Duration 61 s IDCO Episode Detection And Therapy Details IDCO Episode Identifier [id number] IDCO Episode Date Time [id number] IDCO Episode Type Category Other IDCO Episode Vendor Type Category XANDER IDCO Episode Detection Interval Ventricular 1,017 ms IDCO Episode Duration 61 s IDCO Episode Detection And Therapy Details IDCO Episode Identifier [id number] IDCO Episode Date Time [id number] IDCO Episode Type Category Other IDCO Episode Vendor Type Category XANDER IDCO Episode Detection Interval Ventricular 1,017 ms IDCO Episode Duration 62 s IDCO Episode Detection And Therapy Details RYTHMIQ IDCO Episode Identifier [id number] IDCO Episode Date Time [id number] IDCO Episode Type Category Other IDCO Episode Vendor Type Category XANDER IDCO Episode Detection Interval Ventricular 1,000 ms IDCO Episode Duration 59 s IDCO Episode Detection And Therapy Details RYMIQ IDCO Episode Identifier [id number] IDCO Episode Date Time [id number] IDCO Episode Type Category Other IDCO Episode Vendor Type Category XANDER IDCO Episode Detection Interval Ventricular 1,000 ms IDCO Episode Duration 60 s IDCO Episode Detection And Therapy Details RYMIQ IDCO Episode Identifier [id number] IDCO Episode Date Time [id number] IDCO Episode Type Category Other IDCO Episode Vendor Type Category XANDER IDCO Episode Detection Interval Ventricular 1,017 ms IDCO Episode Duration 60 s IDCO Episode Detection And Therapy Details RYMIQ IDCO Episode Identifier [id number] IDCO Episode Date Time [id number] IDCO Episode Type Category Other IDCO Episode Vendor Type Category XANDER IDCO Episode Detection Interval Ventricular 952 ms IDCO Episode Duration 60 s IDCO Episode Detection And Therapy Details MIQ IDCO Episode Identifier V-148 IDCO Episode Date Time [id number] IDCO Episode Type Category VT IDCO Episode Vendor Type Category NSVT IDCO Episode Type Induced Flag NO IDCO Episode Detection Interval Ventricular 380 ms IDCO Episode Duration 5 s IDCO Episode Detection And Therapy Details NonSustV IDCO Episode Identifier V-147 IDCO Episode Date Time [id number] IDCO Episode Type Category VT IDCO Episode Vendor Type Category NSVT IDCO Episode Type Induced Flag NO IDCO Episode Detection Interval Ventricular 405 ms IDCO Episode Duration 5 s IDCO Episode Detection And Therapy Details NonSustV IDCO Episode Identifier V-146 IDCO Episode Date Time [id number] IDCO Episode Type Category VT IDCO Episode Vendor Type Category NSVT IDCO Episode Type Induced Flag NO IDCO Episode Detection Interval Ventricular 390 ms IDCO Episode Duration 20 s IDCO Episode Detection And Therapy Details NonSustV IDCO Episode Identifier V-145 IDCO Episode Date Time [id number] IDCO Episode Type Category VT IDCO Episode Vendor Type Category NSVT IDCO Episode Type Induced Flag NO IDCO Episode Detection Interval Ventricular 387 ms IDCO Episode Duration 53 s IDCO Episode Detection And Therapy Details NonSustV IDCO Episode Identifier V-144 IDCO Episode Date Time [id number] IDCO Episode Type Category VT IDCO Episode Vendor Type Category NSVT IDCO Episode Type Induced Flag NO IDCO Episode Detection Interval Ventricular 455 ms IDCO Episode Duration 18 s IDCO Episode Detection And Therapy Details NonSustV IDCO Episode Identifier V-143 IDCO Episode Date Time [id number] IDCO Episode Type Category VT IDCO Episode Vendor Type Category NSVT IDCO Episode Type Induced Flag NO IDCO Episode Detection Interval Ventricular 375 ms IDCO Episode Duration 32 s IDCO Episode Detection And Therapy Details NonSustV IDCO Episode Identifier V-142 IDCO Episode Date Time [id number] IDCO Episode Type Category VT IDCO Episode Vendor Type Category NSVT IDCO Episode Type Induced Flag NO IDCO Episode Detection Interval Ventricular 408 ms IDCO Episode Duration 5 s IDCO Episode Detection And Therapy Details NonSustV IDCO Episode Identifier V-141 IDCO Episode Date Time [id number] IDCO Episode Type Category VT IDCO Episode Vendor Type Category NSVT IDCO Episode Type Induced Flag NO IDCO Episode Detection Interval Ventricular 382 ms IDCO Episode Duration 24 s IDCO Episode Detection And Therapy Details NonSustV IDCO Episode Identifier V-140 IDCO Episode Date Time [id number] IDCO Episode Type Category VT IDCO Episode Vendor Type Category NSVT IDCO Episode Type Induced Flag NO IDCO Episode Detection Interval Ventricular 364 ms IDCO Episode Duration 51 s IDCO Episode Detection And Therapy Details NonSustV IDCO Episode Identifier V-139 IDCO Episode Date Time [id number] IDCO Episode Type Category VT IDCO Episode Vendor Type Category NSVT IDCO Episode Type Induced Flag NO IDCO Episode Detection Interval Ventricular 414 ms IDCO Episode Duration 8 s IDCO Episode Detection And Therapy Details NonSustV IDCO Episode Identifier ATR-110 IDCO Episode Date Time [id number] IDCO Episode Type Category AT/AF IDCO Episode Vendor Type Category ATR IDCO Episode Detection Interval Atrial 207 ms IDCO Episode Duration 23,715 s IDCO Episode Detection And Therapy Details ATR IDCO Episode Identifier ATR-109 IDCO Episode Date Time [id number] IDCO Episode Type Category AT/AF IDCO Episode Vendor Type Category ATR IDCO Episode Detection Interval Atrial 199 ms IDCO Episode Duration 347 s IDCO Episode Detection And Therapy Details ATR IDCO Episode Identifier ATR-108 IDCO Episode Date Time [id number] IDCO Episode Type Category AT/AF IDCO Episode Vendor Type Category ATR IDCO Episode Detection Interval Atrial 203 ms IDCO Episode Duration IDCO Episode Detection And Therapy Details ATR IDCO Episode Identifier ATR-107 IDCO Episode Date Time [id number] IDCO Episode Type Category AT/AF IDCO Episode [...] Episode Identifier ATR-105 IDCO Episode Date Time [id number] IDCO Episode Type Category AT/AF IDCO Episode Vendor Type Category ATR IDCO Episode Detection Interval Atrial 197 ms IDCO Episode Duration 22 s IDCO Episode Detection And Therapy Details ATR IDCO Episode Identifier ATR-104 IDCO Episode Date Time [id number] IDCO Episode Type Category AT/AF IDCO Episode Vendor Type Category ATR IDCO Episode Detection Interval Atrial 199 ms IDCO Episode Duration 1,223 s IDCO Episode Detection And Therapy Details ATR IDCO Episode Identifier ATR-103 IDCO Episode Date Time [id number] IDCO Episode Type Category AT/AF IDCO Episode Vendor Type Category ATR IDCO Episode Detection Interval Atrial 253 ms IDCO Episode Duration 984 s IDCO Episode Detection And Therapy Details ATR IDCO Episode Identifier ATR-102 IDCO Episode Date Time [id number] IDCO Episode Type Category AT/AF IDCO Episode Vendor Type Category ATR IDCO Episode Detection Interval Atrial 195 ms IDCO Episode Duration 320 s IDCO Episode Detection And Therapy Details ATR IDCO Episode Identifier ATR-101 IDCO Episode Date Time [id number] IDCO Episode Type Category AT/AF IDCO Episode Vendor Type Category ATR IDCO Episode Detection Interval Atrial 205 ms IDCO Episode Duration 1 s IDCO Episode Detection And Therapy Details ATR IDCO Episode Identifier V-92 IDCO Episode Date Time [id number] IDCO Episode Type Category VT IDCO Episode [...] E162 IDCO Implantable Pulse Generator Serial Number [id number] IDCO Implantable Pulse Generator Obstetrical Anesthesiologist [place] [employer] IDCO Implantable Pulse Generator Implant Date 20140110 IDCO Implantable Lead Model 4136 IDCO Implantable Lead Serial Number [id number] IDCO Implantable Lead Obstetrical Anesthesiologist Guidant IDCO Implantable Lead Implant Date 20130421 IDCO Implantable Lead Polarity Type Bipolar Lead IDCO Implantable Lead Location Right Atrium IDCO Implantable Lead Model 0292 IDCO Implantable Lead Serial Number [id number] IDCO Implantable Lead Obstetrical Anesthesiologist [place] [employer] IDCO Implantable Lead Implant Date IDCO [...] IDCO Lead Channel Pacing Threshold Measurement Method Metal Refiner Manual IDCO Lead Channel Pacing Threshold Polarity [...] IDCO Lead Channel Pacing Threshold Measurement Method Metal Refiner Manual IDCO Lead Channel Pacing Threshold Polarity [...] on filedocumented in this encounter Care Teams Secondary Connector Armature Relationship Specialty Start Date End Date Ángel Bingham MD [facility] 1 [facility] [place] [address] PCP - General 01/31/14 09/01/16 documented as of this encounter
--- OUTSIDE RECORDS SUMMARY | 2024-05-09 16:22 | XMS_ITS | Encounter Summary ---
[place] [address] Care Team Providers Care Solderer Assembly Repair Name Role Phone Ángel Bingham MD Primary Care Provider [phone] Encounter Details Date Type Department Care Team (Late st Contact Info) Description 03/29/2015 External Results Cardiology at [address] [phone] Ángel Bingham MD [facility] [address] [place] [address] Social History Tobacco Use Types Packs/Day Years [...] Hospital Encounter Non-[place] [address] Arrived documented as of this encounter Procedures Procedure Name Priority Date/Time Associated Diagnosis Comments EP DEVICE SCAN Routine 01/16/2015 documented in this encounter Results * Scan Doc: EP Device (01/16/2015) Anatomical Region Laterality Modality Other Ángel Bingham MD MEDIA MGR SCAN EXT O RDR/RSLT documented in this encounter Visit Diagnoses Not on filedocumented in this encounter Care Teams Solderer Assembly Repair Relationship Specialty Start Date End Date Ángel Bingham MD [facility] [address] [place] [address] PCP - General 01/31/14 09/01/16 documented as of this encounter
--- OUTSIDE RECORDS SUMMARY | 2024-05-09 16:22 | XMS_ITS | Encounter Summary ---
[place] [address] Care Team Providers Care Technical Assoc Name Role Phone Ángel Bingham MD Primary Care Provider [phone] Encounter Details Date Type Department Care Team (Late st Contact Info) Description 09/15/2014 Orders Only Cardiology at [address] [address] Social History Tobacco Use Types Packs/Day Years [...] AM EST Hospital Encounter Non-In[place] [address] Arrived documented as of this encounter Procedures Procedure Name Priority Date/Time Associated Diagnosis Comments CARDIAC DEVICE CHECK - REMOTE PATIENT INITIATED Routine 09/15/2014 5:22 AM EDT documented in this encounter Results * Cardiac device check - Remote Patient Initiated (09/15/2014 5:22 AM EDT) Date Time Interrogation Session [id number] IDCO Type Interrogation Session Remote Patient Initiated IDCO Clinic Name [facility] IDCO Battery Date Time of Measurements [id number] IDCO Battery Status Beginning of Service IDCO [...] E162 IDCO Implantable Pulse Generator Serial Number [id number] IDCO Implantable Pulse Generator Tile Inspector [place] [employer] IDCO Implantable Pulse Generator Implant Date 20140110 IDCO Implantable Lead Model 4136 IDCO Implantable Lead Serial Number [id number] IDCO Implantable Lead Tile Inspector Guidant IDCO Implantable Lead Implant Date 20130421 IDCO Implantable Lead Polarity Type Bipolar Lead IDCO Implantable Lead Location Right Atrium IDCO Implantable Lead Model 0292 IDCO Implantable Lead Serial Number [id number] IDCO Implantable Lead Tile Inspector [place] [employer] IDCO Implantable Lead Implant Date IDCO [...] IDCO Lead Channel Pacing Threshold Measurement Method Theatrical Trouper Manual IDCO Lead Channel Pacing Threshold Polarity [...] IDCO Lead Channel Pacing Threshold Measurement Method Theatrical Trouper Manual IDCO Lead Channel Pacing Threshold Polarity [...] filedocumented in this encounter Care Teams Technical Assoc Relationship Specialty Start Date End Date Ángel Bingham MD [facility] [address] [place] [address] PCP - General 01/31/14 09/01/16 documented as of this encounter
--- OUTSIDE RECORDS SUMMARY | 2024-05-09 16:22 | XMS_ITS | Encounter Summary ---
[place] [address] Care Team Providers Care Business Professor Name Role Phone Ángel Bingham MD Primary Care Provider [phone] Encounter Details Date Type Department Care Team (Late st Contact Info) Description 02/05/2015 Orders Only Cardiology at [address] [address] Social History Tobacco Use Types Packs/Day Years [...] EST Hospital Encounter Non-[place] [address] Arrived documented as of this encounter Procedures Procedure Name Priority Date/Time Associated Diagnosis Comments CARDIAC DEVICE CHECK - REMOTE PATIENT INITIATED Routine 02/05/2015 3:28 AM EDT documented in this encounter Results * Cardiac device check - Remote Patient Initiated (02/05/2015 3:28 AM EDT) Date Time Interrogation Session [id number] IDCO Type Interrogation Session Remote Patient Initiated IDCO Clinic Name [facility] IDCO Battery Date Time of Measurements [id number] IDCO Battery Status Beginning of Service IDCO Battery Remaining Longevity 126 mo IDCO Battery Remaining Percentage 100 % IDCO Capacitor Last Charge Date Time IDCO Capacitor Charge Time 10.0 s IDCO Capacitor Charge Type Reformation IDCO Episode Identifier APM-12 IDCO Episode Date Time [id number] IDCO Episode Type Category Periodic EGM IDCO Episode Vendor Type Category APMRT IDCO Episode Detection And Therapy Details Presenting EGM IDCO Episode Identifier [id number] IDCO Episode Date Time [id number] IDCO Episode Type Category Other IDCO Episode Vendor Type Category XANDER IDCO Episode Detection Interval Ventricular 1,132 ms IDCO Episode Duration 63 s IDCO Episode Detection And Therapy Details IDCO Episode Identifier [facility]-42 IDCO Episode Date Time [id number] IDCO Episode Type Category Other IDCO Episode Vendor Type Category XANDER IDCO Episode Detection Interval Ventricular 1,154 ms IDCO Episode Duration 63 s IDCO Episode Detection And Therapy Details IDCO Episode Identifier [facility]-02 IDCO Episode Date Time [id number] IDCO Episode Type Category Other IDCO Episode Vendor Type Category XANDER IDCO Episode Detection Interval Ventricular 1,132 ms IDCO Episode Duration 63 s IDCO Episode Detection And Therapy Details IDCO Episode Identifier PR-06 IDCO Episode Date Time [id number] IDCO Episode Type Category Other IDCO Episode Vendor Type Category XANDER IDCO Episode Detection Interval Ventricular 1,091 ms IDCO Episode Duration 63 s IDCO Episode Detection And Therapy Details IDCO Episode Identifier PR-34 IDCO Episode Date Time [id number] IDCO Episode Type Category Other IDCO Episode Vendor Type Category XANDER IDCO Episode Detection Interval Ventricular 1,304 ms IDCO Episode Duration 63 s IDCO Episode Detection And Therapy Details IDCO Episode Identifier PR-84 IDCO Episode Date Time [id number] IDCO Episode Type Category Other IDCO Episode Vendor Type Category XANDER IDCO Episode Detection Interval Ventricular 1,304 ms IDCO Episode Duration 64 s IDCO Episode Detection And Therapy Details IDCO Episode Identifier [facility]-70 IDCO Episode Date Time [id number] IDCO Episode Type Category Other IDCO Episode Vendor Type Category XANDER IDCO Episode Detection Interval Ventricular 1,304 ms IDCO Episode Duration 63 s IDCO Episode Detection And Therapy Details [facility] IDCO Episode Identifier [facility]-9336 IDCO Episode Date Time [id number] IDCO Episode Type Category Other IDCO Episode Vendor Type Category XANDER IDCO Episode Detection Interval Ventricular 1,304 ms IDCO Episode Duration 63 s IDCO Episode Detection And Therapy Details [facility] IDCO Episode Identifier [facility]-9335 IDCO Episode Date Time [id number] IDCO Episode Type Category Other IDCO Episode Vendor Type Category XANDER IDCO Episode Detection Interval Ventricular 1,304 ms IDCO Episode Duration 63 s IDCO Episode Detection And Therapy Details [facility] IDCO Episode Identifier [facility]-34 IDCO Episode Date Time [id number] IDCO Episode Type Category Other IDCO Episode Vendor Type Category XANDER IDCO Episode Detection Interval Ventricular 1,304 ms IDCO Episode Duration 64 s IDCO Episode Detection And Therapy Details [facility] IDCO Episode Identifier ATR-28 IDCO Episode Date Time [id number] IDCO Episode Type Category AT/AF IDCO Episode [...] E162 IDCO Implantable Pulse Generator Serial Number [id number] IDCO Implantable Pulse Generator Inside Technical Sales Representative [place] [employer] IDCO Implantable Pulse Generator Implant Date 20140110 IDCO Implantable Lead Model 4136 IDCO Implantable Lead Serial Number [id number] IDCO Implantable Lead Inside Technical Sales Representative Guidant IDCO Implantable Lead Implant Date 20130421 IDCO Implantable Lead Polarity Type Bipolar Lead IDCO Implantable Lead Location Right Atrium IDCO Implantable Lead Model 0292 IDCO Implantable Lead Serial Number [id number] IDCO Implantable Lead Inside Technical Sales Representative [place] [employer] IDCO Implantable Lead Implant Date IDCO [...] IDCO Lead Channel Pacing Threshold Measurement Method Enrolled Nurse Manual IDCO Lead Channel Pacing Threshold [...] IDCO Lead Channel Pacing Threshold Measurement Method Enrolled Nurse Manual IDCO Lead Channel Pacing Threshold [...] on filedocumented in this encounter Care Teams Business Professor Relationship Specialty Start Date End Date Ángel Bingham MD [facility] [address] [place] [address] PCP - General 01/31/14 09/01/16 documented as of this encounter
--- OUTSIDE RECORDS SUMMARY | 2024-05-09 16:22 | XMS_ITS | Encounter Summary ---
[place] [address] Care Team Providers Care Stone Cleaner Name Role Phone Ángel Bingham MD Primary Care Provider [phone] Encounter Details Date Type Department Care Team (Late st Contact Info) Description 08/17/2014 Orders Only Cardiology at [address] [address] Social History Tobacco Use Types Packs/Day Years [...] AM EST Hospital Encounter [place] [address] Arrived documented as of this encounter Procedures Procedure Name Priority Date/Time Associated Diagnosis Comments CARDIAC DEVICE CHECK - REMOTE PATIENT INITIATED Routine 08/17/2014 6:30 AM EDT documented in this encounter Results * (ABNORMAL) Cardiac device check - Remote Patient Initiated (08/17/2014 6:30 AM EDT) Date Time Interrogation Session [id number] IDCO Type Interrogation Session Remote Patient Initiated IDCO Clinic Name [facility] IDCO Battery Date Time of Measurements [id number] IDCO Battery Status Beginning of Service IDCO Battery Remaining Longevity 126 mo IDCO Battery Remaining Percentage 100 % IDCO Capacitor Last Charge Date Time [id number] IDCO Capacitor Charge Time 9.9 s IDCO Capacitor Charge Type Reformation IDCO Episode Identifier APM-6 IDCO Episode Date Time [id number] IDCO Episode Type Category Periodic EGM IDCO Episode Vendor Type Category APMRT IDCO Episode Detection And Therapy Details Presenting EGM IDCO Episode Identifier [id number] IDCO Episode Date Time [id number] IDCO Episode Type Category Other IDCO Episode Vendor Type Category XANDER IDCO Episode Detection Interval Ventricular 938 ms IDCO Episode Duration 56 s IDCO Episode Detection And Therapy Details IDCO Episode Identifier IDCO Episode Date Time [id number] IDCO Episode Type Category Other IDCO Episode Vendor Type Category XANDER IDCO Episode Detection Interval Ventricular 923 ms IDCO Episode Duration 56 s IDCO Episode Detection And Therapy Details IDCO Episode Identifier IDCO Episode Date Time [id number] IDCO Episode Type Category Other IDCO Episode Vendor Type Category XANDER IDCO Episode Detection Interval Ventricular 923 ms IDCO Episode Duration 55 s IDCO Episode Detection And Therapy Details IDCO Episode Identifier IDCO Episode Date Time [id number] IDCO Episode Type Category Other IDCO Episode Vendor Type Category XANDER IDCO Episode Detection Interval Ventricular 1,000 ms IDCO Episode Duration 59 s IDCO Episode Detection And Therapy Details IDCO Episode Identifier IDCO Episode Date Time [id number] IDCO Episode Type Category Other IDCO Episode Vendor Type Category XANDER IDCO Episode Detection Interval Ventricular 1,071 ms IDCO Episode Duration 56 s IDCO Episode Detection And Therapy Details IDCO Episode Identifier IDCO Episode Date Time [id number] IDCO Episode Type Category Other IDCO Episode Vendor Type Category XANDER IDCO Episode Detection Interval Ventricular 938 ms IDCO Episode Duration 53 s IDCO Episode Detection And Therapy Details IDCO Episode Identifier AL IDCO Episode Date Time IDCO Episode Type Category Other IDCO Episode Vendor Type Category XANDER IDCO Episode Detection Interval Ventricular 938 ms IDCO Episode Duration 54 s IDCO Episode Detection And Therapy Details [facility] Episode Date Time IDCO Episode Type Category Other IDCO Episode Vendor Type Category XANDER IDCO Episode Detection Interval Ventricular 923 ms IDCO Episode Duration 56 s IDCO Episode Detection And Therapy Details [facility] Episode Date Time IDCO Episode Type Category Other IDCO Episode Vendor Type Category XANDER IDCO Episode Detection Interval Ventricular 938 ms IDCO Episode Duration 56 s IDCO Episode Detection And Therapy Details [facility] IDCO Episode Identifier [facility]-9003 IDCO Episode Date Time IDCO Episode Type Category Other IDCO Episode Vendor Type Category XANDER IDCO Episode Detection Interval Ventricular 909 ms IDCO Episode Duration 53 s IDCO Episode Detection And Therapy Details [facility] IDCO Episode Identifier ATR-14 IDCO Episode Date Time IDCO Episode Type Category AT/AF IDCO Episode Vendor Type Category ATR IDCO Episode Detection Interval Atrial 242 ms IDCO Episode Duration 7,379 s IDCO Episode Detection And Therapy Details ATR IDCO Episode Identifier V-4 IDCO Episode Date Time [id number] IDCO Episode Type Category [place] IDCO Episode Vendor Type Category NSVT IDCO Episode Type Induced Flag NO IDCO Episode Detection Interval Ventricular 317 ms IDCO Episode Duration 6 s IDCO Episode Detection And Therapy Details NonSustV IDCO Episode Identifier ATR-13 IDCO Episode Date Time [id number] IDCO Episode Type Category AT/AF IDCO Episode Vendor Type Category ATR IDCO Episode Detection Interval Atrial 923 ms IDCO Episode Duration 1 s IDCO Episode Detection And Therapy Details ATR IDCO Episode Identifier ATR-12 IDCO Episode Date Time [id number] IDCO Episode Type Category AT/AF IDCO Episode Vendor Type Category ATR IDCO Episode Detection Interval Atrial 258 ms IDCO Episode Duration 16,842 s IDCO Episode Detection And Therapy Details ATR IDCO Episode Identifier ATR-11 IDCO Episode Date Time [id number] IDCO Episode Type Category AT/AF IDCO Episode [...] Maximum Sensor Rate 130 {beats}/ min IDCO Albaor Setting CORINE Delay High 150 ms IDCO [...] E162 IDCO Implantable Pulse Generator Serial Number [id number] IDCO Implantable Pulse Generator Hospice Plan Administrator [place] [employer] IDCO Implantable Pulse Generator Implant Date 20140110 IDCO Implantable Lead Model 4136 IDCO Implantable Lead Serial Number [id number] IDCO Implantable Lead Hospice Plan Administrator Guidant IDCO Implantable Lead Implant Date 20130421 IDCO Implantable Lead Polarity Type Bipolar Lead IDCO Implantable Lead Location Right Atrium IDCO Implantable Lead Model 0292 IDCO Implantable Lead Serial Number [id number] IDCO Implantable Lead Hospice Plan Administrator [place] [employer] IDCO Implantable Lead Implant Date IDCO [...] IDCO Lead Channel Pacing Threshold Measurement Method Hearth Feeder Manual IDCO Lead Channel Pacing Threshold Polarity [...] IDCO Lead Channel Pacing Threshold Measurement Method Hearth Feeder Manual IDCO Lead Channel Pacing Threshold Polarity [...] filedocumented in this encounter Care Teams Stone Cleaner Relationship Specialty Start Date End Date Ángel Bingham MD [facility] [address] [place] [address] PCP - General 01/31/14 09/01/16 documented as of this encounter
--- OUTSIDE RECORDS SUMMARY | 2024-05-09 16:22 | XMS_ITS | Encounter Summary ---
Author Organization [facility] [place] [address] Care Team Providers Care Split And Drum Room Supervisor Name Role Phone Ángel Bingham MD Primary Care Provider [phone] Encounter Details Date Type Department Care Team (Late st Contact Info) Description 01/14/2015 Orders Only Cardiology at [address] [address] Social History Tobacco Use Types Packs/Day Years [...] AM EST Hospital Encounter [place] [address] Arrived documented as of this encounter Procedures Procedure Name Priority Date/Time Associated Diagnosis Comments CARDIAC DEVICE CHECK - REMOTE PATIENT INITIATED Routine 01/14/2015 10:19 PM EDT documented in this encounter Results * Cardiac device check - Remote Patient Initiated (01/14/2015 10:19 PM EDT) Date Time Interrogation Session [id number] IDCO Type Interrogation Session Remote Patient Initiated IDCO Clinic Name [facility] IDCO Battery Date Time of Measurements [id number] IDCO Battery Status Beginning of Service IDCO Battery Remaining Longevity 126 mo IDCO Battery Remaining Percentage 100 % IDCO Capacitor Last Charge Date Time IDCO Capacitor Charge Time 10.0 s IDCO Capacitor Charge Type Reformation IDCO Episode Identifier APM-10 IDCO Episode Date Time [id number] IDCO Episode Type Category Periodic EGM IDCO Episode Vendor Type Category APMRT IDCO Episode Detection And Therapy Details Presenting EGM [facility] Episode Date Time [id number] IDCO Episode Type Category Other IDCO Episode Vendor Type Category XANDER IDCO Episode Detection Interval Ventricular 1,364 ms IDCO Episode Duration 63 s IDCO Episode Detection And Therapy Details [facility] IDCO Episode Identifier WVQ-89 IDCO Episode Date Time [id number] IDCO Episode Type Category Other IDCO Episode Vendor Type Category XANDER IDCO Episode Detection Interval Ventricular 1,071 ms IDCO Episode Duration 62 s IDCO Episode Detection And Therapy Details [facility] IDCO Episode Identifier [facility]-88 IDCO Episode Date Time [id number] IDCO Episode Type Category Other IDCO Episode Vendor Type Category XANDER IDCO Episode Detection Interval Ventricular 1,071 ms IDCO Episode Duration 63 s IDCO Episode Detection And Therapy Details [facility] IDCO Episode Identifier WVQ-87 IDCO Episode Date Time [id number] IDCO Episode Type Category Other IDCO Episode Vendor Type Category XANDER IDCO Episode Detection Interval Ventricular 1,071 ms IDCO Episode Duration 64 s IDCO Episode Detection And Therapy Details [facility] IDCO Episode Identifier WV-86 IDCO Episode Date Time [id number] IDCO Episode Type Category Other IDCO Episode Vendor Type Category XANDER IDCO Episode Detection Interval Ventricular 1,364 ms IDCO Episode Duration 64 s IDCO Episode Detection And Therapy Details [facility] IDCO Episode Identifier ATR-27 IDCO Episode Date Time [id number] IDCO Episode Type Category AT/AF IDCO Episode Vendor Type Category ATR IDCO Episode Detection Interval Atrial 270 ms IDCO Episode Duration 18 s IDCO Episode Detection And Therapy Details ATR [facility] Episode Date Time IDCO Episode Type Category Other IDCO Episode Vendor Type Category XANDER IDCO Episode Detection Interval Ventricular 1,364 ms IDCO Episode Duration 117 s IDCO Episode Detection And Therapy Details [facility] IDCO Episode Identifier [facility] IDCO Episode Date Time IDCO Episode Type Category Other IDCO Episode Vendor Type Category XANDER IDCO Episode Detection Interval Ventricular 1,333 ms IDCO Episode Duration 63 s IDCO Episode Detection And Therapy Details [facility] IDCO Episode Identifier [facility] IDCO Episode Date Time IDCO Episode Type Category Other IDCO Episode Vendor Type Category XANDER IDCO Episode Detection Interval Ventricular 882 ms IDCO Episode Duration 56 s IDCO Episode Detection And Therapy Details [facility] IDCO Episode Identifier [facility] IDCO Episode Date Time IDCO Episode Type Category Other IDCO Episode Vendor Type Category XANDER IDCO Episode Detection Interval Ventricular 896 ms IDCO Episode Duration 52 s IDCO Episode Detection And Therapy Details [facility] IDCO Episode Identifier [facility] IDCO Episode Date Time IDCO Episode Type Category Other IDCO Episode Vendor Type Category XANDER IDCO Episode Detection Interval Ventricular 1,053 ms IDCO Episode Duration 49 s IDCO Episode Detection And Therapy Details IDCO Episode Identifier ATR- IDCO Episode Date Time [id number] IDCO Episode Type Category AT/AF IDCO Episode Vendor Type Category ATR IDCO Episode Detection Interval Atrial 845 ms IDCO Episode Duration 1 s IDCO Episode Detection And Therapy Details ATR IDCO Episode Identifier ATR- IDCO Episode Date Time [id number] IDCO Episode Type Category AT/AF IDCO Episode Vendor Type Category ATR IDCO Episode Detection Interval Atrial 566 ms IDCO Episode Duration 5 s IDCO Episode Detection And Therapy Details ATR IDCO Episode Identifier ATR- IDCO Episode Date Time [id number] IDCO Episode Type Category AT/AF IDCO Episode Vendor Type Category ATR IDCO Episode Detection Interval Atrial 260 ms IDCO Episode Duration 321 s IDCO Episode Detection And Therapy Details ATR IDCO Episode Identifier ATR- IDCO Episode Date Time [id number] IDCO Episode Type Category AT/AF IDCO Episode [...] Episode Identifier ATR-21 IDCO Episode Date Time [id number] IDCO Episode Type Category AT/AF IDCO Episode Vendor Type Category ATR IDCO Episode Detection Interval Atrial 833 ms IDCO Episode Duration 1 s IDCO Episode Detection And Therapy Details ATR IDCO Episode Identifier ATR-20 IDCO Episode Date Time [id number] IDCO Episode Type Category AT/AF IDCO Episode Vendor Type Category ATR IDCO Episode Detection Interval Atrial 268 ms IDCO Episode Duration 37 s IDCO Episode Detection And Therapy Details ATR IDCO Episode Identifier ATR-19 IDCO Episode Date Time [id number] IDCO Episode Type Category AT/AF IDCO Episode Vendor Type Category ATR IDCO Episode Detection Interval Atrial 253 ms IDCO Episode Duration 149 s IDCO Episode Detection And Therapy Details ATR IDCO Episode Identifier ATR-18 IDCO Episode Date Time [id number] IDCO Episode Type Category AT/AF IDCO Episode [...] E162 IDCO Implantable Pulse Generator Serial Number [id number] IDCO Implantable Pulse Generator Snuff Packing Machine Operator [place] [employer] IDCO Implantable Pulse Generator Implant Date 20140110 IDCO Implantable Lead Model 4136 IDCO Implantable Lead Serial Number [id number] IDCO Implantable Lead Snuff Packing Machine Operator Guidant IDCO Implantable Lead Implant Date 20130421 IDCO Implantable Lead Polarity Type Bipolar Lead IDCO Implantable Lead Location Right Atrium IDCO Implantable Lead Model 0292 IDCO Implantable Lead Serial Number [id number] IDCO Implantable Lead Snuff Packing Machine Operator [place] [employer] IDCO Implantable Lead Implant Date IDCO [...] IDCO Lead Channel Pacing Threshold Measurement Method Autism Tutor Manual IDCO Lead Channel Pacing Threshold Polarity [...] IDCO Lead Channel Pacing Threshold Measurement Method Autism Tutor Manual IDCO Lead Channel Pacing Threshold Polarity [...] on filedocumented in this encounter Care Teams Split And Drum Room Supervisor Relationship Specialty Start Date End Date Ángel Bingham MD [facility] [address] [place] [address] PCP - General 01/31/14 09/01/16 documented as of this encounter
--- OUTSIDE RECORDS SUMMARY | 2024-05-09 16:22 | XMS_ITS | Encounter Summary ---
Author Organization [facility] [place] [address] Care Team Providers Care Melt Superintendant Name Role Phone Ángel Bingham MD Primary Care Provider [phone] Encounter Details Date Type Department Care Team (Late st Contact Info) Description 04/25/2015 Telephone Cardiology at [address] [phone] Kasandra Bellamy RN Social History Tobacco Use [...] agreed with plan Sent 90-day supply to [facility]. * Telephone Encounter - Kasandra [...] AM EST Hospital Encounter [place] [address] Arrived documented as of this encounter Visit Diagnoses Not on filedocumented in this encounter Care Teams Melt Superintendant Relationship Specialty Start Date End Date Ángel Bingham MD [facility] [address] [place] [address] [place] [address] PCP - General 01/31/14 09/01/16 documented as of this encounter
--- OUTSIDE RECORDS SUMMARY | 2024-05-09 16:22 | XMS_ITS | Encounter Summary ---
Author Organization [facility] [place] [address] Care Team Providers Care Marketing Sales Consultant Name Role Phone Ángel Bingham MD Primary Care Provider [phone] Reason for Visit * Reason Onset Date Comments Medication Refill 04/25/2015 Encounter Details Date Type Department Care Team (Late st Contact Info) Description 04/25/2015 Refill Cardiology at [address] [address] Kit Self MD [facility] [place] [address] Medication Refill Social History Tobacco Use Types [...] AM EST Hospital Encounter Non-Invasive [place] [address] Arrived documented as of this encounter Visit Diagnoses Not on filedocumented in this encounter Care Teams Marketing Sales Consultant Relationship Specialty Start Date End Date Ángel Bingham MD [facility] [address] [place] [address] PCP - General 01/31/14 09/01/16 documented as of this encounter
--- OUTSIDE RECORDS SUMMARY | 2024-05-09 16:22 | XMS_ITS | Encounter Summary ---
[place] [address] Care Team Providers Care Business Development Manager Name Role Phone Ángel Bingham MD Primary Care Provider Encounter Details Date Type Department Care Team (Late st Contact Info) Description 01/16/2015 Orders Only Cardiology at [address] [address] Social History Tobacco Use Types Packs/Day Years [...] AM EST Hospital Encounter Non-Invasive [place] [address] Arrived documented as of this encounter Procedures Procedure Name Priority Date/Time Associated Diagnosis Comments CARDIAC DEVICE CHECK - REMOTE SCHEDULED Routine 01/16/2015 12:42 AM EDT documented in this encounter Results * Cardiac device check - Remote Scheduled (01/16/2015 12:42 AM EDT) Date Time Interrogation Session [id number] IDCO Type Interrogation Session Remote Scheduled IDCO Clinic Name [facility] IDCO Battery Date Time of Measurements [id number] IDCO Battery Status Beginning of Service IDCO [...] Therapy Details Presenting EGM IDCO [facility]ifier [id number] IDCO Episode Date Time IDCO Episode Type [...] E162 IDCO Implantable Pulse Generator Serial Number [id number] IDCO Implantable Pulse Generator Garbage Worker [place] [employer] IDCO Implantable Pulse Generator Implant Date 20140110 IDCO Implantable Lead Model 4136 IDCO Implantable Lead Serial Number [id number] IDCO Implantable Lead Garbage Worker Guidant IDCO Implantable Lead Implant Date 20130421 IDCO Implantable Lead Polarity Type Bipolar Lead IDCO Implantable Lead Location Right Atrium IDCO Implantable Lead Model 0292 IDCO Implantable Lead Serial Number [id number] IDCO Implantable Lead Garbage Worker [place] [employer] IDCO Implantable Lead Implant Date IDCO [...] IDCO Lead Channel Pacing Threshold Measurement Method Plant Director Manual IDCO Lead Channel Pacing Threshold Polarity [...] IDCO Lead Channel Pacing Threshold Measurement Method Plant Director Manual IDCO Lead Channel Pacing Threshold Polarity [...] filedocumented in this encounter Care Teams Business Development Manager Relationship Specialty Start Date End Date Ángel Bingham MD [facility] [address] [place] [address] PCP - General 01/31/14 09/01/16 documented as of this encounter
--- OUTSIDE RECORDS SUMMARY | 2024-05-09 16:22 | XMS_ITS | Encounter Summary ---
[place] [address] Care Team Providers Care Support Services Coordinator Name Role Phone Ángel Bingham MD Primary Care Provider Encounter Details Date Type Department Care Team (Late st Contact Info) Description 09/15/2014 Orders Only Cardiology at [address] [address] Social History Tobacco Use Types Packs/Day Years [...] AM EST Hospital Encounter Non-[place] [address] Arrived documented as of this encounter Procedures Procedure Name Priority Date/Time Associated Diagnosis Comments CARDIAC DEVICE CHECK - REMOTE PATIENT INITIATED Routine 09/15/2014 5:17 AM EDT documented in this encounter Results * Cardiac device check - Remote Patient Initiated (09/15/2014 5:17 AM EDT) Date Time Interrogation Session [id number] IDCO Type Interrogation Session Remote Patient Initiated IDCO Clinic Name [facility] IDCO Battery Date Time of Measurements [id number] IDCO Battery Status Beginning of Service IDCO Battery Remaining Longevity 126 mo IDCO Battery Remaining Percentage 100 % IDCO Capacitor Last Charge Date Time IDCO Capacitor Charge Time 9.9 s IDCO Capacitor Charge Type Reformation IDCO Episode Identifier APM-8 IDCO Episode Date Time [id number] IDCO Episode Type Category Periodic EGM IDCO Episode Vendor Type Category APMRT IDCO Episode Detection And Therapy Details Presenting EGM IDCO Episode Identifier [id number] IDCO Episode Date Time [id number] IDCO Episode Type Category Other IDCO Episode Vendor Type Category XANDER IDCO Episode Detection Interval Ventricular 1,053 ms IDCO Episode Duration 63 s IDCO Episode Detection And Therapy Details IDCO Episode Identifier IDCO Episode Date Time [id number] IDCO Episode Type Category Other IDCO Episode [...] s IDCO Episode Detection And Therapy Details [facility] IDCO Episode Identifier [id number] IDCO Episode Date Time IDCO Episode Type Category Other IDCO Episode Vendor Type Category XANDER IDCO Episode Detection Interval Ventricular 952 ms IDCO Episode Duration 61 s IDCO Episode Detection And Therapy Details [facility] IDCO Episode Identifier IDCO Episode Date Time IDCO Episode Type Category Other IDCO Episode Vendor Type Category XANDER IDCO Episode Detection Interval Ventricular 923 ms IDCO Episode Duration 58 s IDCO Episode Detection And Therapy Details [facility] IDCO Episode Identifier [id number] IDCO Episode Date Time IDCO Episode Type Category Other IDCO Episode Vendor Type Category XANDER IDCO Episode Detection Interval Ventricular 909 ms IDCO Episode Duration 51 s IDCO Episode Detection And Therapy Details [facility] IDCO Episode Identifier ATR-17 IDCO Episode [...] E162 IDCO Implantable Pulse Generator Serial Number [id number] IDCO Implantable Pulse Generator Airfield Operations Specialist [place] [employer] IDCO Implantable Pulse Generator Implant Date 20140110 IDCO Implantable Lead Model 4136 IDCO Implantable Lead Serial Number [id number] IDCO Implantable Lead Airfield Operations Specialist Guidant IDCO Implantable Lead Implant Date 20130421 IDCO Implantable Lead Polarity Type Bipolar Lead IDCO Implantable Lead Location Right Atrium IDCO Implantable Lead Model 0292 IDCO Implantable Lead Serial Number [id number] IDCO Implantable Lead Airfield Operations Specialist [place] [employer] IDCO Implantable Lead Implant Date IDCO [...] IDCO Lead Channel Pacing Threshold Measurement Method Power Plant Electrician Manual IDCO Lead Channel Pacing Threshold Polarity [...] IDCO Lead Channel Pacing Threshold Measurement Method Power Plant Electrician Manual IDCO Lead Channel Pacing Threshold Polarity [...] on filedocumented in this encounter Care Teams Support Services Coordinator Relationship Specialty Start Date End Date Ángel Bingham MD [facility] [address] [place] [address] PCP - General 01/31/14 09/01/16 documented as of this encounter
--- OUTSIDE RECORDS SUMMARY | 2024-05-09 16:22 | XMS_ITS | Encounter Summary ---
Author Organization [facility] [place] [address] Care Team Providers Care Accounts Specialist Name Role Phone Ángel Bingham MD Primary Care Provider [phone] Encounter Details Date Type Department Care Team (Late st Contact Info) Description 10/16/2015 Orders Only Cardiology at [address] [address] Social History Tobacco Use Types Packs/Day Years [...] AM EST Hospital Encounter [place] [address] Arrived documented as of this encounter Procedures Procedure Name Priority Date/Time Associated Diagnosis Comments CARDIAC DEVICE CHECK - REMOTE SCHEDULED Routine 10/16/2015 12:41 AM EDT documented in this encounter Results * Cardiac device check - Remote Scheduled (10/16/2015 12:41 AM EDT) Date Time Interrogation Session [id number] IDCO Type Interrogation Session Remote Scheduled IDCO Clinic Name [facility] IDCO Battery Date Time of Measurements [id number] IDCO Battery Status Beginning of Service IDCO Battery Remaining Longevity 120 mo IDCO Battery Remaining Percentage 100 % IDCO Capacitor Last Charge Date Time IDCO Capacitor Charge Time 10.2 s IDCO Capacitor Charge Type Reformation IDCO Capacitor Last Charge Date Time [id number] IDCO Capacitor Charge Time 3.8 s IDCO Capacitor Charge Energy 21 J IDCO Capacitor Charge Type Shock IDCO Episode Identifier APM-15 IDCO Episode Date Time IDCO Episode Type Category Periodic EGM IDCO Episode Vendor Type Category APMRT IDCO Episode Detection And Therapy Details Presenting EGM IDCO Episode Identifier [id number] IDCO Episode Date Time IDCO Episode Type Category Other IDCO Episode Vendor Type Category XANDER IDCO Episode Detection Interval Ventricular 938 ms IDCO Episode Duration 54 s IDCO Episode Detection And Therapy Details IDCO Episode Identifier [id number] IDCO Episode Date Time [id number] IDCO Episode Type Category Other IDCO Episode Vendor Type Category XANDER IDCO Episode Detection Interval Ventricular 968 ms IDCO Episode Duration 59 s IDCO Episode Detection And Therapy Details IDCO Episode Identifier [id number] IDCO Episode Date Time [id number] IDCO Episode Type Category Other IDCO Episode Vendor Type Category XANDER IDCO Episode Detection Interval Ventricular 1,071 ms IDCO Episode Duration 62 s IDCO Episode Detection And Therapy Details IDCO Episode Identifier [id number] IDCO Episode Date Time [id number] IDCO Episode Type Category Other IDCO Episode Vendor Type Category XANDER IDCO Episode Detection Interval Ventricular 1,053 ms IDCO Episode Duration 63 s IDCO Episode Detection And Therapy Details IDCO Episode Identifier 30 IDCO Episode Date Time [id number] IDCO Episode Type Category Other IDCO Episode Vendor Type Category XANDER IDCO Episode Detection Interval Ventricular 1,071 ms IDCO Episode Duration 62 s IDCO Episode Detection And Therapy Details IDCO Episode Identifier -[id number] IDCO Episode Date Time [id number] IDCO Episode Type Category Other IDCO Episode Vendor Type Category XANDER IDCO Episode Detection Interval Ventricular 1,053 ms IDCO Episode Duration 63 s IDCO Episode Detection And Therapy Details IDCO Episode Identifier [id number] IDCO Episode Date Time [id number] IDCO Episode Type Category Other IDCO Episode Vendor Type Category XANDER IDCO Episode Detection Interval Ventricular 1,053 ms IDCO Episode Duration 63 s IDCO Episode Detection And Therapy Details IDCO Episode Identifier [id number] IDCO Episode Date Time [id number] IDCO Episode Type Category Other IDCO Episode Vendor Type Category XANDER IDCO Episode Detection Interval Ventricular 1,154 ms IDCO Episode Duration 63 s IDCO Episode Detection And Therapy Details IDCO Episode Identifier IDCO Episode Date Time [id number] IDCO Episode Type Category Other IDCO Episode Vendor Type Category XANDER IDCO Episode Detection Interval Ventricular 1,053 ms IDCO Episode Duration 63 s IDCO Episode Detection And Therapy Details IDCO Episode Identifier IDCO Episode Date Time [id number] IDCO Episode Type Category Other IDCO Episode Vendor Type Category XANDER IDCO Episode Detection Interval Ventricular 1,071 ms IDCO Episode Duration 63 s IDCO Episode Detection And Therapy Details IDCO Episode Identifier ATR-46 IDCO Episode Date Time [id number] IDCO Episode Type Category AT/AF IDCO Episode Vendor Type Category ATR IDCO Episode Detection Interval Atrial 311 ms IDCO Episode Duration 25 s IDCO Episode Detection And Therapy Details ATR IDCO Episode Identifier ATR-45 IDCO Episode Date Time [id number] IDCO Episode Type Category AT/AF IDCO Episode Vendor Type Category ATR IDCO Episode Detection Interval Atrial 612 ms IDCO Episode Duration 6 s IDCO Episode Detection And Therapy Details ATR IDCO Episode Identifier ATR-44 IDCO Episode Date Time [id number] IDCO Episode Type Category AT/AF IDCO Episode Vendor Type Category ATR IDCO Episode Detection Interval Atrial 279 ms IDCO Episode Duration 75 s IDCO Episode Detection And Therapy Details ATR IDCO Episode Identifier ATR-43 IDCO Episode Date Time [id number] IDCO Episode Type Category AT/AF IDCO Episode [...] Episode Identifier V-37 IDCO Episode Date Time [id number] IDCO Episode Type Category [place] IDCO Episode Vendor Type Category NSVT IDCO Episode Type Induced Flag NO IDCO Episode Detection Interval Ventricular 330 ms IDCO Episode Duration 6 s IDCO Episode Detection And Therapy Details NonSustV IDCO Episode Identifier V-36 IDCO Episode Date Time [id number] IDCO Episode Type Category VT IDCO Episode Vendor Type Category NSVT IDCO Episode Type Induced Flag NO IDCO Episode Detection Interval Ventricular 330 ms IDCO Episode Duration 6 s IDCO Episode Detection And Therapy Details NonSustV IDCO Episode Identifier ATR-41 IDCO Episode Date Time [id number] IDCO Episode Type Category AT/AF IDCO Episode Vendor Type Category ATR IDCO Episode Detection Interval Atrial 262 ms IDCO Episode Duration 40 s IDCO Episode Detection And Therapy Details ATR IDCO Episode Identifier ATR-40 IDCO Episode Date Time [id number] IDCO Episode Type Category AT/AF IDCO Episode Vendor Type Category ATR IDCO Episode Detection Interval Atrial 253 ms IDCO Episode Duration 37 s IDCO Episode Detection And Therapy Details ATR IDCO Episode Identifier ATR-39 IDCO Episode Date Time [id number] IDCO Episode Type Category AT/AF IDCO Episode Vendor Type Category ATR IDCO Episode Detection Interval Atrial 255 ms IDCO Episode Duration 17 s IDCO Episode Detection And Therapy Details ATR IDCO Episode Identifier V-35 IDCO Episode Date Time [id number] IDCO Episode Type Category [place] IDCO Episode Vendor Type Category NSVT IDCO Episode Type Induced Flag NO IDCO Episode Detection Interval Ventricular 321 ms IDCO Episode Duration 6 s IDCO Episode Detection And Therapy Details NonSustV IDCO Episode Identifier ATR-38 IDCO Episode Date Time [id number] IDCO Episode Type Category AT/AF IDCO Episode [...] E162 IDCO Implantable Pulse Generator Serial Number [id number] IDCO Implantable Pulse Generator Vegetable Ii Farmworker [place] [employer] IDCO Implantable Pulse Generator Implant Date 20140110 IDCO Implantable Lead Model 4136 IDCO Implantable Lead Serial Number [id number] IDCO Implantable Lead Vegetable Ii Farmworker Guidant IDCO Implantable Lead Implant Date 20130421 IDCO Implantable Lead Polarity Type Bipolar Lead IDCO Implantable Lead Location Right Atrium IDCO Implantable Lead Model 0292 IDCO Implantable Lead Serial Number [id number] IDCO Implantable Lead Vegetable Ii Farmworker [place] [employer] IDCO Implantable Lead Implant Date [...] IDCO Lead Channel Pacing Threshold Measurement Method Hand Grinder Manual IDCO Lead Channel Pacing Threshold Polarity [...] IDCO Lead Channel Pacing Threshold Measurement Method Hand Grinder Manual IDCO Lead Channel Pacing Threshold Polarity [...] on filedocumented in this encounter Care Teams Accounts Specialist Relationship Specialty Start Date End Date Ángel Bingham MD [facility] [address] [place] [address] PCP - General 01/31/14 09/01/16 documented as of this encounter
--- OUTSIDE RECORDS SUMMARY | 2024-05-09 16:22 | XMS_ITS | Encounter Summary ---
Author Organization [facility] Address [facility] [place] [address] Care Team Providers Care Peer Counselor Name Role Phone Ángel Bingham MD Primary Care Provider [phone] Encounter Details Date Type Department Care Team (Latest Contact Info) Description 07/11/2015 3:30 PM EDT Office Visit Cardiology at [address] [address] Kit Self MD [facility] [place] [address] ASCVD (arteriosclerotic cardiovascular disease); Typical atrial flutter [...] were not included. [facility] [place] [address] CARDIOLOGY OUTPATIENT FOLLOW-UP NOTE Marquez Evan Hendrix [id number] PCP: ÁNGEL BINGHAM MD 07/11/2015 PRIMARY CARE [...] test at [facility] in [place], [place] May 02, 2013 during which he developed left shoulder and arm discomfort during submaximal exercise on the treadmill and after which he was converted to a pharmacologic test; nuclear imaging showed ejection fraction of 45% with a partially reversible inferior defect ?? Cath [facility] 05/13/2013: normal left main, mild diffuse disease throughout the LAD with an 80% mid stenosis representing a restenosis lesion, mild diffuse disease in the proximal obtuse marginal branch, and mild diffuse disease throughout the right coronary artery; status post 3.0 X 12 mm JON to 80%mid-LAD lesion (in-stent restenosis) ?? Heart catheterization [facility] January 06, 2014 showing [...] 80 (documented on ICD interrogation 07/18/14) ?? [id number] score = 3 ?? Patient initially reluctant to be anticoagulated as recommended ??? Atrial pacemaker lead displacement New finding at office follow up 04/10/2014 Plan lead reposition/replacement ??? ICD (implantable cardioverter-defibrillator), dual, in situ New Atrial electrode: Guidant Dextrus Model# 4126-53 cm Serial# [id number] ?? Bipolar, steroid-tipped, active-fixation IS-1 lead ?? [...] at 10 V: No Old Ventricular electrode: [place] [employer] [place] Model# 0292 Serial# [id number] ?? Bipolar, steroid-tipped, active-fixation DF-4 lead ?? [...] Atrial electrode: Guidant Dextrus Model# 4136 Serial# [id number] ?? Bipolar, steroid-tipped, active-fixation IS-1 lead ?? Access: Axillary vein ?? Location Removed 04/17/2014 ?? Implanted: 01/10/2014 Pulse generator: [employer] Incepta Model# E162 Serial# [id number] ?? DDDR ICD ?? Location: Subcutaneous The [...] 2 times daily. 90 tablet 6 ??? [place]-3 Fatty Acids (FISH OIL) 500 mg Cap [...] rarely but which is associated with a [id number] score of at least 3. He continues [...] AM EST Hospital Encounter Non-[place] [address] Arrived documented as of this encounter Visit Diagnoses Diagnosis ASCVD (arteriosclerotic cardiovascular disease) Unspecified cardiovascular disease Typical atrial flutter Atrial flutter documented in this encounter Care Teams Peer Counselor Relationship Specialty Start Date End Date Ángel Bingham MD [facility] [address] [place] [address] PCP - General 01/31/14 09/01/16 documented as of this encounter
[2024-05-09 16:23] LABS: Abs Immature Grans 0.05 10^3/uL (0.0-0.06); Absolute Eosinophil Count 0.91 10^3/uL (0.0-0.7); Absolute Lymphocyte Count 3.16 10^3/uL (1.2-3.4); Absolute Monocyte Count 0.68 10^3/uL (0.1-0.8); Absolute Neutrophil Count 5.32 10^3/uL (1.2-6.7); Eosinophils % 8.9 %; HGB 15.5 g/dL (13.5-17.5); Immature Grans % 0.5 %; Lymphocytes % 30.9 %; MCH 29.5 pg (27.0-33.0); MCHC 32.3 % (32.0-36.0); MCV 91 fL (80-95); MPV 9.2 fL (8.0-11.0); Monocytes % 6.7 %; Platelet Count 234 10^3/uL (130-400); RBC 5.26 10^6/uL (4.36-5.78); RDW 12.9 % (11.8-14.1); RDW-SD 42.5 fL; WBC 10.22 10^3/uL (4.4-10.8)
--- OUTSIDE RECORDS SUMMARY | 2024-05-09 16:23 | XMS_ITS | Encounter Summary ---
Author Organization [facility] Address [place] [address] Care Team Providers Care Medical Technologist Chemistry Name Role Phone Ángel Bingham MD Primary Care Provider [phone] Encounter Details Date Type Department Care Team (Latest Contact Info) Description 04/10/2014 10:17 AM EST - 04/10/2014 11:59 PM [facility] Hospital Encounter XRay at [address] [place] [address] Pacemaker lead failure, initial encounter Social History [...] times daily. 90 tablet 6 05/14/2013 01/27/2017 [place]-3 Fatty Acids (FISH OIL) 500 mg Cap Take by mouth daily. 01/14/2016 lamotrigine (LAMICTAL) 100 mg tablet Take 200 mg by mouth daily. 09/01/2018 alprazolam (XANAX XR) 3 mg 24 hr tablet Take 3 mg by mouth nightly. 09/18/2020 lactobac cmb #[id number] (PROBIOTIC & ACIDOPHILUS) 300-250 million cell-mg Cap [...] AM EST Hospital Encounter Non-Invasive [place] [address] Arrived documented as of this [...] encounter documented in this encounter Care Teams Medical Technologist Chemistry Relationship Specialty Start Date End Date Ángel Bingham MD [facility] [address] [place] [address] PCP - General 01/31/14 09/01/16 documented as of this encounter
--- OUTSIDE RECORDS SUMMARY | 2024-05-09 16:23 | XMS_ITS | Encounter Summary ---
Author Organization [facility] Address [facility] [place] [address] Care Team Providers Care Banking Officer Name Role Phone Ángel Bingham MD Primary Care Provider [phone] Encounter Details Date Type Department Care Team (Late st Contact Info) Description 04/12/2014 Orders Only Cardiology at [address] [phone] Edy Torres, [place] [facility] [address] Pacemaker lead malfunction, subsequent encounter Social History [...] AM EST Hospital Encounter Non-[place] [address] Arrived documented as of this encounter Procedures [...] ?? Guidant Dextrus ??Model# 4126-53 cm Serial# [id number] ? Bipolar, steroid-tipped, active-fixation IS-1 lead ? [...] 10 V: ??No Old Ventricular electrode: ?? [place] [employer] [place] Model# 0292 Serial# [id number] ? Bipolar, steroid-tipped, active-fixation DF-4 lead ? [...] electrode: ?? Diego Daigles Model# 4136 Serial# [id number] ? Bipolar, steroid-tipped, active-fixation IS-1 lead ? Access: ? Axillary vein ? Location ? Removed 04/17/2014 ? Implanted: ?01/10/2014 Pulse generator: ?? [place] [employer] Incepta Model# E162 Serial# [id number] ?? ? DDDR ICD ? Location: ?Subcutaneous [...] encounter documented in this encounter Care Teams Banking Officer Relationship Specialty Start Date End Date Ángel Bingham MD [facility] [address] [place] [address] [place] [address] PCP - General 01/31/14 09/01/16 documented as of this encounter
--- OUTSIDE RECORDS SUMMARY | 2024-05-09 16:23 | XMS_ITS | Encounter Summary ---
Author Organization [facility] [place] [address] Care Team Providers Care Guide Dog Trainer Name Role Phone Ángel Bingham MD Primary Care Provider [phone] Encounter Details Date Type Department Care Team (Latest Contact Info) Description 01/31/2014 10:40 AM EDT Office Visit Cardiology at [address] [address] iKt Self MD [facility] [place] [address] ASCVD (arteriosclerotic cardiovascular disease); Sustained ventricular tachycardia [...] from the original note were not included. [facility] [place] [address] CARDIOLOGY OUTPATIENT FOLLOW-UP NOTE Marquez Hendrix [id number] PCP: ÁNGEL BINGHAM MD 01/31/2014 PRIMARY CARE PROVIDER: ÁNGEL BINGHAM MD PROBLEM LIST: Patient Active Problem List Diagnosis ??? ASCVD (arteriosclerotic cardiovascular disease) ?? Heart catheterization in [facility] in 2007 with placement of a stent in an unspecified vessel ?? Repeat heart catheterization in 2008 with placement of stents to both the LAD and circumflex ?? Followup heart catheterization in 2008 showing stable results in both vessels ?? Her current chest discomfort in a somewhat atypical pattern beginning fall ?? Nuclear stress test at [facility] [place] [facility] in [place], [place] May 02, 2013 during which he developed left shoulder and arm discomfort during submaximal exercise on the treadmill and after which he was converted to a pharmacologic test; nuclear imaging showed ejection fraction of 45% with a partially reversible inferior defect ?? Cath [facility] 05[place]13[place]2013: normal left main, mild diffuse disease throughout the LAD with an 80% mid stenosis representing a restenosis lesion, mild diffuse disease in the proximal obtuse marginal branch, and mild diffuse disease throughout the right coronary artery; status post 3.0 X 12 mm JON to 80%mid-LAD lesion (in-stent restenosis) ?? Heart catheterization [facility] January 06, 2014 showing normal left main, hazy 50% mid LAD stenosis, mild diffuse disease throughout the circumflex, and moderate diffuse disease in the proximal RCA with a totally occluded distal RCA with brisk flow via bridging collaterals; fractional flow reserveon the LAD 0.85 ??? ICD (implantable cardioverter-defibrillator), dual, in situ Ventricular electrode: [employer] Open [employer] [place] Model# 0292 Serial# [id number] Bipolar, steroid-tipped, active-fixation, single coil DF-4 lead Access: Left axillary vein Location: RV apex R wave, ICD: 9.6 mV Pacing threshold, ICD: 0.6 V at 0.5 ms Impedance, ICD: 913 ohms (74 ohms for shock vector) Pace the diaphragm at 10 V: No Atrial electrode: Get Smart Content Dextrus Model# 4136 Serial# [id number] Bipolar, steroid-tipped, active-fixation IS-1 lead Access: Left axillary vein Location Right atrial appendage P wave, ICD: 4.3 mV Pacing threshold, pacemaker: 1.7 V at 0.5 ms Impedance, pacemaker: 538 ohms Pace the diaphragm at 10 V: No Pulse generator: [employer] Incepta Model# E162 Serial# [id number] DDDR ICD Location: Subcutaneous Defibrillation testing was [...] 2 times daily. 90 tablet 6 ??? [place]-3 Fatty Acids (FISH OIL) 500 mg Cap Take by mouth daily. ??? multivitamin capsule Take 1 capsule by mouth daily. ??? LANCETS MISC by Misc.(Non-Drug; Combo Route) route. ??? lamotrigine (LAMICTAL) 100 mg tablet Take 100 mg by mouth daily. ??? alprazolam (XANAX XR) 3 mg 24 hr tablet Take 3 mg by mouth every morning. ? ? lactobac cmb #1-[id number]-[id number] (PROBIOTIC & ACIDOPHILUS) 300-250 million cell- mg [...] while taking a hike. He presented to [facility] where he was found to bein ventricular tachycardia with a heart rate in the 160s and a borderline low blood pressure 108/64. He was sedated and cardioverted successfully. Unfortunately, he remembers the shock. He was transferred to [facility] where his evaluation included an echocardiogram which [...] st Contact Info) Description 06/15/2024 10:00 AM [facility] Hospital Encounter Non[place] [address] Arrived documented as of this encounter Visit Diagnoses Diagnosis ASCVD (arteriosclerotic cardiovascular disease) Unspecified cardiovascular disease Sustained ventricular tachycardia Paroxysmal ventricular tachycardia documented in this encounter Care Teams Guide Dog Trainer Relationship Specialty Start Date End Date Ángel Bingham MD [facility] [address] [place] [address] PCP - General 01/31/14 09/01/16 documented as of this encounter
--- OUTSIDE RECORDS SUMMARY | 2024-05-09 16:23 | XMS_ITS | Encounter Summary ---
Author Organization [facility] [place] [address] Care Team Providers Care Glost Placer Name Role Phone Ángel Bingham MD Primary Care Provider [phone] Reason for Visit * Reason Comments Cardiomyopathy ICD check Encounter Details Date Type Department Care Team (Late st Contact Info) Description 07/18/2014 10:00 AM EDT Office Visit Cardiology at [address] [phone] Trena Carlisle RN Sustained VT (ventricular tachycardia) [...] Dr. Self in clinic today as well. Beam Racker: Kit Self MD PCP: ÁNGEL BINGHAM MD Final Parameters: New Atrial electrode: Guidant Dextrus Model# 4126-53 cm Serial# [id number] ?? Bipolar, steroid-tipped, active-fixation IS-1 lead ?? [...] at 10 V: No Old Ventricular electrode: [place] Scientific [place] Model# 0292 Serial# [id number] ?? Bipolar, steroid-tipped, active-fixation DF-4 lead ?? [...] Atrial electrode: Guidant Dextrus Model# 4136 Serial# [id number] ?? Bipolar, steroid-tipped, active-fixation IS-1 lead ?? Access: Axillary vein ?? Location Removed 04/17/2014 ?? Implanted: 01/10/2014 Pulse generator: [employer] Incepta Model# E162 Serial# [id number] ?? DDDR ICD ?? Location: Subcutaneous Tachy [...] histograms: Reasonable distribution Pacing percentages: AP 10%; CONSTRUCTION SUPERVISOR/CARPENTER <1% Mode switch episodes: 9 episodes for 1% burden since lead revision on 04/17/14. 7 lasting for <1minute and 2 lasting for 1 hour-<24 hours. EGMs and rates suggest Atrial flutter with ventricular rates in the 80's. Patient does not recall these events and states the long lasting episodes most likely occurred while he was in [place] for his sisters and was under stress. Monitored events: 1 episode on 05/15/14. EGM suggests brief NSVT for 4 beats duration Treated events: None Battery voltage: ANN, 10.5 years remaining Charge time: 9.9 sec 07/11/14 Chest x-ray: ok day post atrial lead revision (patient states he had another xray done at [facility] while he was there per his request recently and they said it looked good) Incision assessment: L chest no issues I have reviewed the programming printouts, and the device is functioning normally. Impression: EGM evidence of atrial flutter and fib (21.5 minute episode) and non-EGM recording of episodes > 1 hour but < 24 hours. He's on ASA/Plavix, post JON 05/03. [id number] score is 4 (age, DM, HTN, CAD). Plan: Latitude 3 mos, RTC 6 mos. Consider anticoagulation if AT/AF continues. Reprogramming: atrial pacing output decreased based upon threshold obtained in clinic today. Edy Berry MD documented in this encounter Plan of Treatment Upcoming Encounters Date Type Department Care Team (Late st Contact Info) Description 06/15/2024 10:00 AM EST Hospital Encounter [place] [address] Arrived documented as of this encounter Visit Diagnoses Diagnosis Sustained VT (ventricular tachycardia) Paroxysmal ventricular tachycardia documented in this encounter Care Teams Glost Placer Relationship Specialty Start Date End Date Ángel Bingham MD [facility] [address] [place] [address] PCP - General 01/31/14 09/01/16 documented as of this encounter
--- OUTSIDE RECORDS SUMMARY | 2024-05-09 16:23 | XMS_ITS | Encounter Summary ---
[place] [address] Care Team Providers Care Woodwind Instrument Repairer Name Role Phone Ángel Bingham MD Primary Care Provider [phone] Encounter Details Date Type Department Care Team (Late st Contact Info) Description 02/11/2014 Orders Only Cardiology at [address] [address] Social History Tobacco Use Types Packs/Day Years [...] AM EST Hospital Encounter [place] [address] Arrived documented as of this encounter Procedures Procedure Name Priority Date/Time Associated Diagnosis Comments CARDIAC DEVICE CHECK - REMOTE PATIENT INITIATED Routine 02/11/2014 11:56 AM EDT documented in this encounter Results * Cardiac device check - Remote Patient Initiated (02/11/2014 11:56 AM EDT) Date Time Interrogation Session [id number] IDCO Type Interrogation Session Remote Patient Initiated IDCO Clinic Name [facility] IDCO Battery Date Time of Measurements [id number] IDCO Battery Status Beginning of Service IDCO Battery Remaining Longevity 126 mo IDCO Battery Remaining Percentage 100 % IDCO Capacitor Last Charge Date Time [id number] IDCO Capacitor Charge Time 9.7 s IDCO Capacitor Charge Type Reformation IDCO Episode Identifier APM-1 IDCO Episode Date Time [id number] IDCO Episode Type Category Periodic EGM IDCO Episode Vendor Type Category APMRT IDCO Episode Detection And Therapy Details Presenting EGM IDCO Episode Identifier Q IDCO Episode Date Time [id number] IDCO Episode Type Category Other IDCO Episode Vendor Type Category XANDER IDCO Episode Detection Interval Ventricular 1,304 ms IDCO Episode Duration 52 s IDCO Episode Detection And Therapy Details IDCO Episode Identifier IDCO Episode Date Time [id number] IDCO Episode Type Category Other IDCO Episode Vendor Type Category XANDER IDCO Episode Detection Interval Ventricular 845 ms IDCO Episode Duration 46 s IDCO Episode Detection And Therapy Details IDCO Episode Identifier IDCO Episode Date Time [id number] IDCO Episode Type Category Other IDCO Episode Vendor Type Category XANDER IDCO Episode Detection Interval Ventricular 1,000 ms IDCO Episode Duration 60 s IDCO Episode Detection And Therapy Details IDCO Episode Identifier IDCO Episode Date Time [id number] IDCO Episode Type Category Other IDCO Episode Vendor Type Category XANDER IDCO Episode Detection Interval Ventricular 938 ms IDCO Episode Duration 56 s IDCO Episode Detection And Therapy Details IDCO Episode Identifier IDCO Episode Date Time [id number] IDCO Episode Type Category Other IDCO Episode Vendor Type Category XANDER IDCO Episode Detection Interval Ventricular 909 ms IDCO Episode Duration 208 s IDCO Episode Detection And Therapy Details IDCO Episode Identifier IDCO Episode Date Time [id number] IDCO Episode Type Category Other IDCO Episode Vendor Type Category XANDER IDCO Episode Detection Interval Ventricular 984 ms IDCO Episode Duration 59 s IDCO Episode Detection And Therapy Details IDCO Episode Identifier IDCO Episode Date Time [id number] IDCO Episode Type Category Other IDCO Episode [...] IDCO Episode Identifier IDCO Episode Date Time [id number] IDCO Episode Type Category Other IDCO Episode [...] E162 IDCO Implantable Pulse Generator Serial Number [id number] IDCO Implantable Pulse Generator Strategic Marketing Associate [place] Scientific IDCO Implantable Pulse Generator Implant Date 20140110 IDCO Implantable Lead Model 4136 IDCO Implantable Lead Serial Number [id number] IDCO Implantable Lead Strategic Marketing Associate Guidant IDCO Implantable Lead Implant Date IDCO Implantable Lead Polarity Type Bipolar Lead IDCO Implantable Lead Location Right Atrium IDCO Implantable Lead Model 0292 IDCO Implantable Lead Serial Number [id number] IDCO Implantable Lead Strategic Marketing Associate [place] Scientific IDCO Implantable Lead Implant Date IDCO [...] IDCO Lead Channel Pacing Threshold Measurement Method Pan Greaser Manual IDCO Lead Channel Pacing Threshold Polarity [...] IDCO Lead Channel Pacing Threshold Measurement Method Pan Greaser Manual IDCO Lead Channel Pacing Threshold Polarity [...] on filedocumented in this encounter Care Teams Woodwind Instrument Repairer Relationship Specialty Start Date End Date Ángel Bingham MD [facility] [address] [place] [address] PCP - General 01/31/14 09/01/16 documented as of this encounter
--- OUTSIDE RECORDS SUMMARY | 2024-05-09 16:23 | XMS_ITS | Encounter Summary ---
Author Organization [facility] [place] [address] Care Team Providers Care Ore Miner Name Role Phone Ángel Bingham MD Primary Care Provider [phone] Reason for Visit * Reason Onset Date Comments Other 07/06/2014 MAP-Possible ass istance ? Encounter Details Date Type Department Care Team (Late Contact Info) Description 07/06/2014 Telephone [place] [phone] Rafaela Randhawa Other (MAP-Possible assistance ?) Social [...] Pt stated purchased Medicare and Part D [id number] documented in this encounter Plan of Treatment Upcoming Encounters Date Type Department Care Team (Late Contact Info) Description 06/15/2024 10:00 AM EST Hospital Encounter Non-Invasive [place] [address] Arrived documented as of this encounter Visit Diagnoses Not on filedocumented in this encounter Care Teams Ore Miner Relationship Specialty Start Date End Date Ángel Bingham MD [facility] [address] [place] [address] PCP - General 01/31/14 09/01/16 documented as of this encounter
--- OUTSIDE RECORDS SUMMARY | 2024-05-09 16:23 | XMS_ITS | Encounter Summary ---
[place] [address] Care Team Providers Care Coat Finisher Name Role Phone Ángel Bingham MD Primary Care Provider [phone] Encounter Details Date Type Department Care Team (Late st Contact Info) Description 04/17/2014 10:30 AM EST - 04/17/2014 1:50 PM EST Surgery [place] [address] Myrna Shepard MD ELECTROPHYSIOLOGY PROCEDURE Social History [...] Marquez Hendrix Patient Age: 63 y.o. Language: Andorran Race: White Ethnicity: Not nor Admit date: 04/17/2014 Discharge date and time: 04/18/2014929 Attending Physician: Myrna Shepard MD Discharge Physician: Jake Shepard MD Follow-up Recommendations for Providers: S/p atrial lead replacement Scheduled for 90 day post implant follow up Inpatient Provider Contact Information: Cardiac Electrophysiology [phone] Discharge Diagnoses (Hospital Problems) and Secondary Diagnoses [...] Treatments: Atrial lead replacement Discharge Exam: Skin: [place], warm and dry HEENT: PERRLA, EOMI, no [...] electrode: Guidant Dextrus Model# 4126-53 cm Serial# [id number] ?? Bipolar, steroid-tipped, active-fixation IS-1 lead ?? Access: Axillary vein ?? Location Right atrial appendage Old Ventricular electrode: PerspecSys Model# 0292 Serial# [id number] ?? Bipolar, steroid-tipped, active-fixation DF-4 lead ?? Access: Axillary vein ?? Location: Right ventricular apex Old Atrial electrode: Guidant Dextrus Model# 4136 Serial# [id number] ?? Bipolar, steroid-tipped, active-fixation IS-1 lead ?? Access: Axillary vein ?? Location Removed 04/17/2014 ?? Implanted: 01/10/2014 Pulse generator: [employer] Incepta Model# E162 Serial# [id number] ?? DDDR ICD ?? Location: Subcutaneous DDDR [...] Cap Take by mouth daily. Generic drug: [place]-3 Fatty Acids Refills: 0 glipiZIDE 5 mg [...] by mouth daily. Generic drug: lactobac cmb #[id number] Refills: 0 rosuvastatin 20 mg Tab Commonly [...] a 91 day new device check at [facility]. 4. Remote device follow [...] 07/18/2014 10:00 AM Raul Lopes RN Cardiology [phone] 07/18/2014 10:40 AM Kit Self MD Cardiology [phone] Joint Appt [phone] Discharge References/Attachments None documented in this encounter Discharge Instructions * Patient Instructions* Edy Torres PA - 04/18/2014 7:57 AM EST Final recommendations: 1. Standard post implant discharge instructions (see below): 2. Resume medications as listed. 3. You will be called to schedule a 91 day new device check at [facility]. 4. Remote device follow [...] times daily. 90 tablet 6 05/14/2013 01/27/2017 [place]-3 Fatty Acids (FISH OIL) 500 mg Cap Take by mouth daily. 01/14/2016 lamotrigine (LAMICTAL) 100 mg tablet Take 200 mg by mouth daily. 09/01/2018 alprazolam (XANAX XR) 3 mg 24 hr tablet Take 3 mg by mouth nightly. 09/18/2020 [facility] cmb #[id number] (PROBIOTIC & ACIDOPHILUS) 300-250 million cell-mg Cap [...] AM EST Office of Care Management Clinical Derrick Car Operator Patient Name: Marquez Hendrix : 1950, 63 yrs Admission Date: 04/17/2014 1:14 PM Attending: Myrna Shepard MD Order to Admit: Record reviewed and patient discussed with multidisciplinary team. Insurance: [employer] Medical/Surgical: Pt admitted for atrial lead [...] electrode: Guidant Dextrus Model# 4126-53 cm Serial# [id number] ?? Bipolar, steroid-tipped, active-fixation IS-1 lead ?? Access: Axillary vein ?? Location Right atrial appendage Old Ventricular electrode: [place] Scientific [place] Model# 0292 Serial# [id number] ?? Bipolar, steroid-tipped, active-fixation DF-4 lead ?? Access: Axillary vein ?? Location: Right ventricular apex Old Atrial electrode: Guidant Dextrus Model# 4136 Serial# [id number] ?? Bipolar, steroid-tipped, active-fixation IS-1 lead ?? Access: Axillary vein ?? Location Removed 04/17/2014 ?? Implanted: 01/10/2014 Pulse generator: [place] Scientific Incepta Model# E162 Serial# [id number] ?? DDDR ICD ?? Location: Subcutaneous DDDR [...] medication given as ordered. Remained on bedside shelter monitor in [place], paced rhythm. Denies chest pain, denies sob this tour. PLAN MOVING FORWARD: Xray in morning, ICD/Pacemaker interrogation, ambulation, discharge to home INDIVIDUALIZED FALL PREVENTION: Assistance: independent Supervision: independent, SBA as needed Surveillance: Purposeful rounding, call coleamn within reach, bed in low position, cardiac [...] EVALUATION NOTE: OUTCOME SUMMARY: Patient admitted to [facility] via bed from EP lab. Is alert [...] Hospital Encounter Non-[place] [address] Arrived documented as of this encounter Procedures [...] POC 140 60 - 199 mg/dL [facility] Comment: Supplemental ranges: <140 mg/dL before [...] Glucose, POC 126 60 - 199 mg/dL [facility] Comment: Supplemental ranges: <140 mg/dL before meals <180 mg/dL all other times of the day Blood specimen (specimen) 04/18/2014 3:32 AM EST 04/18/2014 3:32 AM EST Myrna Shepard MD POINT OF CARE TEST ORDERABLES Performing Organization Address [facility] Phone Number [facility] * POCT Glucose (04/18/2014 12:08 AM EST) Glucose, POC 113 60 - 199 mg/dL [facility] Comment: Supplemental ranges: <140 mg/dL before meals <180 mg/dL all other times of the day Blood specimen (specimen) 04/18/2014 12:08 AM EST 04/18/2014 12:08 AM EST Myrna Shepard MD POINT OF CARE TEST ORDERABLES Performing Organization Address [facility] Phone Number [facility] * POCT Glucose (04/17/2014 9:53 PM EST) Glucose, POC 120 60 - 199 mg/dL [facility] Comment: Supplemental ranges: <140 mg/dL before meals <180 mg/dL all other times of the day Blood specimen (specimen) 04/17/2014 9:53 PM EST 04/17/2014 9:53 PM EST Myrna Shepard MD POINT OF CARE TEST ORDERABLES Performing Organization Address [facility] de Phone Number [facility] * POCT Glucose (04/17/2014 8:03 PM EST) Glucose, POC 169 60 - 199 mg/dL [facility] Comment: Supplemental ranges: <140 mg/dL before meals <180 mg/dL all other times of the day Blood specimen (specimen) 04/17/2014 8:03 PM EST 04/17/2014 8:03 PM EST Myrna Shepard MD POINT OF CARE TEST ORDERABLES Performing Organization Address [facility] Co de Phone Number [facility] EMMANUELI[facility] * POCT Glucose (04/17/2014 5:23 PM EST) Glucose, POC 155 60 - 199 mg/dL [facility] Comment: Supplemental ranges: <140 mg/dL before meals <180 mg/dL all other times of the day Blood specimen (specimen) 04/17/2014 5:23 PM EST 04/17/2014 5:23 PM EST Myrna Shepard MD POINT OF CARE TEST ORDERABLES Performing Organization Address [facility] de Phone Number [facility] * POCT Glucose (04/17/2014 2:11 PM EST) Glucose, POC 130 60 - 199 mg/dL [facility] Comment: Supplemental ranges: <140 mg/dL before meals <180 mg/dL all other times of the day Blood specimen (specimen) 04/17/2014 2:11 PM EST 04/17/2014 2:11 PM EST Myrna Shepard MD POINT OF CARE TEST ORDERABLES Performing Organization Address [facility] Phone Number [facility] * (ABNORMAL) Urinalysis with microscopic (04/17/2014 [...] Urine Dipstick Clear Clear [facility] MILLENNIUM Specific Nada Urine Automated 1.021 1.002 - 1.030 CERNER [...] Shepard MD URINE ORDERABLES Performing Organization Address City/[facility] Co de Phone Number [facility] * POCT Glucose (04/17/2014 10:09 AM EST) [facility] Signature Glucose, POC 153 60 - 199 mg/dL C[facility] MILLENNIUM Comment: Supplemental ranges: <140 mg/dL before meals <180 mg/dL all other times of the day Blood specimen (specimen) 04/17/2014 10:09 AM EST 04/17/2014 10:09 AM EST Myrna Shepard MD POINT OF CARE TEST ORDERABLES Performing Organization Address City/[facility] Co de Phone Number [facility] documented in this encounter Visit Diagnoses [...] to induce or maintain moderate sedation per [facility] Moderate Sedation Protocol, For use in the [...] to induce or maintain moderate sedation per [facility] Moderate Sedation Protocol, For use in the [...] to induce or maintain moderate sedation per [facility] Moderate Sedation Protocol, For use in the [...] to induce or maintain moderate sedation per [facility] Moderate Sedation Protocol, For use in the electrophysiology lab (EP lab) only for procedural sedation with direct provider supervision and verbal order. RASS goal (-)2 to (-)3. Dose not to exceed 1 mg per dose, 5mg/hour, or 0.2mg/kg per case., EP (Intra-Procedure), Routine 1137 (Given - Provider: Cheryle Adan, NHAUN)1141 (Given - Provider: Cheryle Adan, NAHUN)1150 (Given [...] RN) documented in this encounter Care Teams Coat Finisher Relationship Specialty Start Date End Date Ángel Bingham MD [facility] [address] [facility] [place] [address] [address] PCP - General 01/31/14 09/01/16 documented as of this encounter
--- OUTSIDE RECORDS SUMMARY | 2024-05-09 16:23 | XMS_ITS | Encounter Summary ---
[place] [address] Care Team Providers Care Treasury Management Sales Consultant Name Role Phone Ángel Bingham MD Primary Care Provider [phone] Reason for Visit * Reason Comments Cardiomyopathy Encounter Details Date Type Department Care Team (Late st Contact Info) Description 04/10/2014 9:30 AM EST Office Visit Cardiology at [address] [phone] Raul Lopes RN Sustained [place] (ventricular tachycardia) [...] He complains of some LLOYD since implant. Inspector Pawnshop Detail: Kit Self MD PCP: ÁNGEL BINGHAM MD Final Parameters: Ventricular electrode: [place] [employer] Model# 0292 Serial# [id number] ?? Bipolar, steroid-tipped, active-fixation, single coil DF-4 lead ?? Access: Left axillary vein ?? Location: RV apex ?? R wave, ICD: 9.6 mV ?? Pacing threshold, ICD: 0.6 V at 0.5 ms ?? Impedance, ICD: 913 ohms (74 ohms for shock vector) ?? Pace the diaphragm at 10 V: No Atrial electrode: [place] Surface [employer] Dextrus Model# 4136 Serial# [id number] ?? Bipolar, steroid-tipped, active-fixation IS-1 lead ?? Access: Left axillary vein ?? Location Right atrial appendage ?? P wave, ICD: 4.3 mV ?? Pacing threshold, pacemaker: 1.7 V at 0.5 ms ?? Impedance, pacemaker: 538 ohms ?? Pace the diaphragm at 10 V: No Pulse generator: [place] [employer] Incepta Model# E162 Serial# [id number] DDDR ICD ?? Location: Subcutaneous Tachy settings: [...] histograms: Reasonable distribution Pacing percentages: AP 48%; DRY HOUSE OPERATOR 21% Mode switch episodes: None Monitored events: [...] with the plan. Lars Hernandez DO Cardiac Insurance And Financial Services Agent Cardiac Electrophysiology Department [place], [place] ) Pager ([phone]) documented in this encounter Plan of Treatment Upcoming Encounters Date Type Department Care Team (Late st Contact Info) Description 06/15/2024 10:00 AM EST Hospital Encounter [place] [address] Arrived documented as of this encounter Visit Diagnoses Diagnosis Sustained [place] (ventricular tachycardia) Paroxysmal ventricular tachycardia documented in this encounter Care Teams Treasury Management Sales Consultant Relationship Specialty Start Date End Date Ángel Bingham MD [facility] [address] [place] [address] PCP - General 01/31/14 09/01/16 documented as of this encounter
--- OUTSIDE RECORDS SUMMARY | 2024-05-09 16:23 | XMS_ITS | Encounter Summary ---
Author Organization [facility] [place] [address] Care Team Providers Care Baseball Glove Stuffer Name Role Phone Ángel Bingham MD Primary Care Provider [phone] Encounter Details Date Type Department Care Team (Late st Contact Info) Description 04/10/2014 Orders Only Cardiology at [address] [phone] Edy Torres PA [facility] [place] [address] Pacemaker lead failure, initial encounter Social History [...] AM EST Hospital Encounter Non-Invasive [place] [phone] Arrived documented as of this encounter Results [...] dislodged. No other intervalfindings. Lars Hernandez DO [place] DX ORDERABLES documented in this encounter Visit Diagnoses Diagnosis Pacemaker lead failure, initial encounter Pacemaker lead failure, initial encounter documented in this encounter Care Teams Baseball Glove Stuffer Relationship Specialty Start Date End Date Ángel Bingham MD [facility] [address] [place] [address] PCP - General 01/31/14 09/01/16 documented as of this encounter
--- OUTSIDE RECORDS SUMMARY | 2024-05-09 16:23 | XMS_ITS | Encounter Summary ---
[place] [address] Care Team Providers Care Crop And Soil Scientist Name Role Phone Ángel Bingham MD Primary Care Provider Encounter Details Date Type Department Care Team (Late st Contact Info) Description 04/11/2014 Orders Only Cardiology at [address] [phone] Myrna Shepard MD Ventricular tachycardia Social History [...] AM EST Hospital Encounter Non-[place] [address] Arrived documented as of this encounter Visit Diagnoses Diagnosis Ventricular tachycardia Paroxysmal ventricular tachycardia documented in this encounter Care Teams Crop And Soil Scientist Relationship Specialty Start Date End Date Ángel Bingham MD [facility] 1 [facility] [place] [address] PCP - General 01/31/14 09/01/16 documented as of this encounter
--- OUTSIDE RECORDS SUMMARY | 2024-05-09 16:23 | XMS_ITS | Encounter Summary ---
Author Organization [facility] [place] [address] Care Team Providers Care Food Specialist Name Role Phone Ángel Bingham MD Primary Care Provider [phone] Encounter Details Date Type Department Care Team (Late st Contact Info) Description 04/10/2014 Orders Only Cardiology at [address] [phone] Social History Tobacco Use Types Packs/Day Years [...] AM EST Hospital Encounter [place] [address] Arrived documented as of this encounter Procedures Procedure Name Priority Date/Time Associated Diagnosis Comments CARDIAC DEVICE CHECK - IN CLINIC Routine 04/10/2014 10:51 AM EST documented in this encounter Results * (ABNORMAL) Cardiac device check - In Clinic (04/10/2014 10:51 AM EST) Date Time Interrogation Session IDCO Type Interrogation Session In Clinic IDCO Clinic Name [facility] IDCO Battery Date Time of Measurements IDCO [...] E162 IDCO Implantable Pulse Generator Serial Number [id number] IDCO Implantable Pulse Generator Event Sales Representative [place] Scientific IDCO Implantable Pulse Generator Implant Date 20140110 IDCO Implantable Lead Model 4136 IDCO Implantable Lead Serial Number [id number] IDCO Implantable Lead Event Sales Representative Guidant IDCO Implantable Lead Implant Date IDCO Implantable Lead Polarity Type Bipolar Lead IDCO Implantable Lead Location Right Atrium IDCO Implantable Lead Model 0292 IDCO Implantable Lead Serial Number [id number] IDCO Implantable Lead Event Sales Representative [place] Scientific IDCO Implantable Lead Implant Date IDCO [...] End [id number] IDCO Atrial Tachy Statistic AT/AF [place] Percent 0 % IDCO Therapy Statistic Recent [...] on filedocumented in this encounter Care Teams Food Specialist Relationship Specialty Start Date End Date Ángel Bingham MD [facility] [address] [place] [address] PCP - General 01/31/14 09/01/16 documented as of this encounter
--- OUTSIDE RECORDS SUMMARY | 2024-05-09 16:23 | XMS_ITS | Encounter Summary ---
Author Organization [facility] Address [facility] [place] [address] Care Team Providers Care Camp Dining Room Attendant Name Role Phone Ángel Bingham MD Primary Care Provider [phone] Encounter Details Date Type Department Care Team (Latest Contact Info) Description 04/17/2014 8:22 AM EST - 04/17/2014 11:59 PM [facility] Hospital [place] [phone] José Manuel Fabian MD [facility] [address] Discharge Disposition: Home Social History Tobacco Use [...] times daily. 90 tablet 6 05/14/2013 01/27/2017 [place]-3 Fatty Acids (FISH OIL) 500 mg Cap Take by mouth daily. 01/14/2016 lamotrigine (LAMICTAL) 100 mg tablet Take 200 mg by mouth daily. 09/01/2018 alprazolam (XANAX XR) 3 mg 24 hr tablet Take 3 mg by mouth nightly. 09/18/2020 [facility] cmb #[id number] (PROBIOTIC & ACIDOPHILUS) 300-250 million cell-mg Cap [...] AM EST Hospital Encounter Non-Invasive [place] [address] Arrived documented as of this encounter Procedures [...] of Diabetes Mellitus, Position Statement from the [place] [employer]. ??Diabetes Care, Volume 33, Supplement 1, Apr 2009 Blood Urea Nitrogen 19 10 - 20 mg/dL CERNER MILLENNIUM Creatinine 1.02 0.80 - 1.50 mg/dL CERNER MILLENNIUM Comment: Please note that the pediatric reference intervals supplied above were not validated at [facility]. Results from pediatric patients should be interpreted [...] the following links into your internet browser. [email or web address] Blood specimen (specimen) 04/17/2014 8:29 AM EST 04/17/2014 8:48 AM EST Narrative Resulting Agency Comment Spec In Lab José Manuel Fabian MD CHEMISTRY ORDERABLES Performing Organization Address City/[facility] Co de Phone Number MONICA PERALTA * Prothrombin Time (04/17/2014 8:29 AM EST) Prothrombin Time 14.4 12.5 - 15.5 sec CERNER MILLENNIUM Comment: [facility] Transfusion Committee Guidelines: INR less than [...] MD HEMATOLOGY ORDERABLE S Performing Organization Address City/State/[facility] Co de Phone Number MONICA PERALTA documented in this encounter Visit Diagnoses Not on filedocumented in this encounter Care Teams Camp Dining Room Attendant Relationship Specialty Start Date End Date Ángel Bingham MD [facility] [address] [place] [address] PCP - General 01/31/14 09/01/16 documented as of this encounter
--- OUTSIDE RECORDS SUMMARY | 2024-05-09 16:23 | XMS_ITS | Encounter Summary ---
Author Organization [facility] Address [facility] [place] [address] Care Team Providers Care Vertica Architect Name Role Phone Ángel Bingham MD Primary Care Provider [phone] Reason for Visit * Reason Onset Date Comments Other 03/08/2014 ? stop plavix Encounter Details Date Type Department Care Team (Late st Contact Info) Description 03/08/2014 Telephone Cardiology at [address] [phone] Kit Self MD [facility] [place] [address] Other (? stop plavix) Social History Tobacco [...] call having Bilateral L4-L5 MBB done at [facility]. There is a question about Stopping medication prior to this procedure. I called the number provided by the patient and had to leave a message as they close at 4:00. I will call back tomorrow. [phone] Thank you, Daphney documented in this encounter Plan of Treatment Upcoming Encounters Date Type Department Care Team (Late st Contact Info) Description 06/15/2024 10:00 AM EST Hospital Encounter Non-Invasive [place] [phone] Arrived documented as of this encounter Visit Diagnoses Not on filedocumented in this encounter Care Teams Vertica Architect Relationship Specialty Start Date End Date Ángel Bingham MD [facility] 1 [facility] [place] [address] PCP - General 01/31/14 09/01/16 documented as of this encounter
--- OUTSIDE RECORDS SUMMARY | 2024-05-09 16:23 | XMS_ITS | Encounter Summary ---
[place] [address] Care Team Providers Care Ecology Professor Name Role Phone Ángel Bingham MD Primary Care Provider [phone] Encounter Details Date Type Department Care Team (Late st Contact Info) Description 08/17/2014 Orders Only Cardiology at [address] [phone] Social History Tobacco Use Types Packs/Day Years [...] AM EST Hospital Encounter [place] [address] Arrived documented as of this encounter Procedures Procedure Name Priority Date/Time Associated Diagnosis Comments CARDIAC DEVICE CHECK - REMOTE PATIENT INITIATED Routine 08/17/2014 6:45 AM EDT documented in this encounter Results * (ABNORMAL) Cardiac device check - Remote Patient Initiated (08/17/2014 6:45 AM EDT) Date Time Interrogation Session [id number] IDCO Type Interrogation Session Remote Patient Initiated IDCO [facility] IDCO Battery Date Time of Measurements [id number] IDCO Battery Status Beginning of Service IDCO Battery Remaining Longevity 126 mo IDCO Battery Remaining Percentage 100 % IDCO Capacitor Last Charge Date Time IDCO Capacitor Charge Time 9.9 s IDCO Capacitor Charge Type Reformation IDCO Episode Identifier APM-7 IDCO Episode Date Time [id number] IDCO Episode Type Category Periodic EGM IDCO [...] E162 IDCO Implantable Pulse Generator Serial Number [id number] IDCO Implantable Pulse Generator Taxonomist [place] Scientific IDCO Implantable Pulse Generator Implant Date 20140110 IDCO Implantable Lead Model 4136 IDCO Implantable Lead Serial Number [id number] IDCO Implantable Lead Taxonomist Guidant IDCO Implantable Lead Implant Date 20130421 IDCO Implantable Lead Polarity Type Bipolar Lead IDCO Implantable Lead Location Right Atrium IDCO Implantable Lead Model 0292 IDCO Implantable Lead Serial Number [id number] IDCO Implantable Lead Taxonomist [place] Scientific IDCO Implantable Lead Implant Date IDCO [...] IDCO Lead Channel Pacing Threshold Measurement Method Microsoft Dynamics Ax Consultant Manual IDCO Lead Channel Pacing Threshold [...] IDCO Lead Channel Pacing Threshold Measurement Method Microsoft Dynamics Ax Consultant Manual IDCO Lead Channel Pacing Threshold [...] on filedocumented in this encounter Care Teams Ecology Professor Relationship Specialty Start Date End Date Ángel Bingham MD [facility] [address] [place] [address] PCP - General 01/31/14 09/01/16 documented as of this encounter
--- OUTSIDE RECORDS SUMMARY | 2024-05-09 16:23 | XMS_ITS | Encounter Summary ---
Author Organization [facility] Address [facility] [place] [address] Care Team Providers Care It Technical Specialist Name Role Phone Ángel Bingham MD Primary Care Provider [phone] Encounter Details Date Type Department Care Team (Late st Contact Info) Description 02/02/2014 Telephone Cardiology at [address] [phone] Lisbeth Huff, RN Social History Tobacco Use [...] prescription in to the [facility] in [facility]. Thank you, Daphney * Telephone Encounter [...] st Contact Info) Description 06/15/2024 10:00 AM [facility] Hospital Encounter Non[place] [phone] Arrived documented as of this encounter Visit Diagnoses Not on filedocumented in this encounter Care Teams It Technical Specialist Relationship Specialty Start Date End Date Ángel Bingham MD [facility] 1 [facility] [place] [address] PCP - General 01/31/14 09/01/16 documented as of this encounter
--- OUTSIDE RECORDS SUMMARY | 2024-05-09 16:23 | XMS_ITS | Encounter Summary ---
Author Organization [facility] Address [facility] [place] [address] Care Team Providers Care Cab Supervisor Name Role Phone Ángel Bingham MD Primary Care Provider [phone] Reason for Visit * Reason Comments Pacemaker Problem Encounter Details Date Type Department Care Team (Late st Contact Info) Description 04/10/2014 10:40 AM EST Follow-Up Cardiology at [address] [phone] Edy Torres PA [facility] [place] [address] Atrial pacemaker lead displacement, initial encounter Discharge [...] coordinate schedule: Please call EP scheduling at [phone] documented in this encounter Progress Notes * Edy Torres PA - 04/10/2014 11:04 AM EST Images from the original note were not included. Subjective: Patient ID: Marquez Hendrix is a 63 y.o. male. HPI Asked by Raul Lopes RN to evaluate Mr Hendrix who presented for ICD follow up after 01/10/2014 dualchamber [employer] ICD implant and was found to [...] 2 times daily. 90 tablet 6 ??? [place]-3 Fatty Acids (FISH OIL) 500 mg Cap [...] mouth every morning. ? ? lactobac cmb #[id number] (PROBIOTIC & ACIDOPHILUS) 300-250 million cell- mg [...] diaphoretic. Vitals reviewed. Device Data: Ventricular electrode: [employer] [place] Model# 0292 Serial# [id number] ?? Bipolar, steroid-tipped, active-fixation, single coil DF-4 lead ?? Access: Left axillary vein ?? Location: RV apex Atrial electrode: [employer] Dextrus Model# 4136 Serial# [id number] ?? Bipolar, steroid-tipped, active-fixation IS-1 lead ?? Access: Left axillary vein ?? Location Right atrial appendage Pulse generator: [employer] Incepta Model# E162 Serial# [id number] DDDR ICD ?? Location: Subcutaneous Defibrillation testing [...] without the operation Provider: MAXIMO Leija Provider#: [id number] Consult attending physician: Vamshi Hernandez MD documented in this encounter H&P Notes * Edy Torres PA - 04/10/2014 11:28 AM EST See progress note. documented in this encounter Plan of Treatment Upcoming Encounters Date Type Department Care Team (Late st Contact Info) Description 06/15/2024 10:00 AM EST Hospital Encounter Non[place] [address] Arrived documented as of this encounter Visit Diagnoses Diagnosis Atrial pacemaker lead displacement, initial encounter documented in this encounter Care Teams Cab Supervisor Relationship Specialty Start Date End Date Ángel Bingham MD [facility] [address] [place] [address] PCP - General 01/31/14 09/01/16 documented as of this encounter
--- OUTSIDE RECORDS SUMMARY | 2024-05-09 16:23 | XMS_ITS | Encounter Summary ---
Author Organization [facility] [place] [address] Care Team Providers Care Life Claims Examiner Name Role Phone Ángel Bingham MD Primary Care Provider [phone] Reason for Visit * Reason Onset Date Comments Medication Refill 02/03/2014 Encounter Details Date Type Department Care Team (Late st Contact Info) Description 02/03/2014 Refill Cardiology at [address] [phone] Kit Self MD [facility] [place] [address] Medication Refill Social History Tobacco Use Types [...] AM EST Hospital Encounter Non-In[place] [phone] Arrived documented as of this encounter Visit Diagnoses Not on filedocumented in this encounter Care Teams Life Claims Examiner Relationship Specialty Start Date End Date Ángel Bingham MD [facility] [address] [place] [address] PCP - General 01/31/14 09/01/16 documented as of this encounter
--- OUTSIDE RECORDS SUMMARY | 2024-05-09 16:23 | XMS_ITS | Encounter Summary ---
Author Organization [facility] [place] [address] Care Team Providers Care Clinical Laboratory Technologist Name Role Phone Ángel Bingham MD Primary Care Provider [phone] Encounter Details Date Type Department Care Team (Latest Contact Info) Description 04/17/2014 1:14 PM EST - 04/18/2014 12:19 PM EST Hospital Encounter [place] [address] José Manuel Fabian MD [facility] [place] [address] Myrna Shepard MD Ventricular tachycardia Discharge Disposition: [...] Marquez Hendrix Patient Age: 63 y.o. Language: Jamaican Race: White Ethnicity: Not nor Admit date: 04/17/2014 Discharge date and time: 04/18/2014929 Attending Physician: Myrna Shepard MD Discharge Physician: Jake Shepard MD Follow-up Recommendations for Providers: S/p atrial lead replacement Scheduled for 90 day post implant follow up Inpatient Provider Contact Information: Cardiac Electrophysiology [phone] Discharge Diagnoses (Hospital Problems) and Secondary Diagnoses [...] Treatments: Atrial lead replacement Discharge Exam: Skin: [place], warm and dry HEENT: PERRLA, EOMI, no [...] electrode: Guidant Dextrus Model# 4126-53 cm Serial# [id number] ?? Bipolar, steroid-tipped, active-fixation IS-1 lead ?? Access: Axillary vein ?? Location Right atrial appendage Old Ventricular electrode: [employer] Gray Model# 0292 Serial# [id number] ?? Bipolar, steroid-tipped, active-fixation DF-4 lead ?? Access: Axillary vein ?? Location: Right ventricular apex Old Atrial electrode: Guiddelio Daigles Model# 4136 Serial# [id number] ?? Bipolar, steroid-tipped, active-fixation IS-1 lead ?? Access: Axillary vein ?? Location Removed 04/17/2014 ?? Implanted: 01/10/2014 Pulse generator: [employer] Incepta Model# E162 Serial# [id number] ?? DDDR ICD ?? Location: Subcutaneous DDDR [...] Cap Take by mouth daily. Generic drug: [place]-3 Fatty Acids Refills: 0 glipiZIDE 5 mg [...] by mouth daily. Generic drug: lactobac cmb #1-lyg-dhkbywxzsz Refills: 0 rosuvastatin 20 mg Tab Commonly [...] [place] [facility]. 4. Remote device follow [...] 07/18/2014 10:00 AM Raul Lopes RN Cardiology [phone] 07/18/2014 10:40 AM Kit Self MD Cardiology [phone] Joint Appt [facility] Int[facility] [phone] Discharge References/Attachments None documented in this encounter Discharge Instructions * Patient Instructions* Edy Torres PA - 04/18/2014 7:57 AM EST Final recommendations: 1. Standard post implant discharge instructions (see below): 2. Resume medications as listed. 3. You will be called to schedule a 91 day new device check [place] [facility] [place] [facility] 4. Remote device follow [...] times daily. 90 tablet 6 05/14/2013 01/27/2017 Blakeslee-3 Fatty Acids (FISH OIL) 500 mg Cap Take by mouth daily. 01/14/2016 lamotrigine (LAMICTAL) 100 mg tablet Take 200 mg by mouth daily. 09/01/2018 alprazolam (XANAX XR) 3 mg 24 hr tablet Take 3 mg by mouth nightly. 09/18/2020 [facility] #[id number] (PROBIOTIC & ACIDOPHILUS) 300-250 million cell-mg Cap [...] AM EST Office of Care Management Clinical Automobile Service Station Attendant Patient Name: Marquez Hendrix : 1950, 63 yrs Admission Date: 04/17/2014 1:14 PM Attending: Myrna Shepard MD Order to Admit: Record reviewed and patient discussed with multidisciplinary team. Insurance: [employer]: Pt admitted for atrial lead replacement [...] electrode: Guidant Dextrus Model# 4126-53 cm Serial# [id number] ?? Bipolar, steroid-tipped, active-fixation IS-1 lead ?? Access: Axillary vein ?? Location Right atrial appendage Old Ventricular electrode: [employer] Gray Model# 0292 Serial# [id number] ?? Bipolar, steroid-tipped, active-fixation DF-4 lead ?? Access: Axillary vein ?? Location: Right ventricular apex Old Atrial electrode: Guidant Dextrus Model# 4136 Serial# [id number] ?? Bipolar, steroid-tipped, active-fixation IS-1 lead ?? Access: Axillary vein ?? Location Removed 04/17/2014 ?? Implanted: 01/10/2014 Pulse generator: Amidon [employer] Incepta Model# E162 Serial# [id number] ?? DDDR ICD ?? Location: Subcutaneous DDDR [...] medication given as ordered. Remained on bedside radiation monitor in SB 55, paced rhythm. Denies [...] EVALUATION NOTE: OUTCOME SUMMARY: Patient admitted to [facility] via bed from EP lab. Is [...] AM EST Hospital Encounter Non-[place] [address] Arrived documented as of this encounter Procedures [...] Glucose, POC 140 60 - 199 mg/dL [facility] Comment: Supplemental ranges: <140 mg/dL [...] Glucose, POC 126 60 - 199 mg/dL [facility] Comment: Supplemental ranges: <140 mg/dL before meals <180 mg/dL all other times of the day Blood specimen (specimen) 04/18/2014 3:32 AM EST 04/18/2014 3:32 AM EST Myrna Shepard MD POINT OF CARE TEST ORDERABLES Performing Organization Address [facility] Co de Phone Number [facility] * POCT Glucose (04/18/2014 12:08 AM EST) Glucose, POC 113 60 - 199 mg/dL [facility] Comment: Supplemental ranges: <140 mg/dL before meals <180 mg/dL all other times of the day Blood specimen (specimen) 04/18/2014 12:08 AM EST 04/18/2014 12:08 AM EST Myrna Shepard MD POINT OF CARE TEST ORDERABLES Performing Organization Address [facility] de Phone Number [facility] * POCT Glucose (04/17/2014 9:53 PM EST) Glucose, POC 120 60 - 199 mg/dL [facility] Comment: Supplemental ranges: <140 mg/dL before meals <180 mg/dL all other times of the day Blood specimen (specimen) 04/17/2014 9:53 PM EST 04/17/2014 9:53 PM EST Myrna Shepard MD POINT OF CARE TEST ORDERABLES Performing Organization Address [facility] Co de Phone Number [facility] * POCT Glucose (04/17/2014 8:03 PM EST) Glucose, POC 169 60 - 199 mg/dL [facility] Comment: Supplemental ranges: <140 mg/dL before meals <180 mg/dL all other times of the day Blood specimen (specimen) 04/17/2014 8:03 PM EST 04/17/2014 8:03 PM EST Myrna Shepard MD POINT OF CARE TEST ORDERABLES Performing Organization Address City/[facility]/ZIP Co de Phone Number [facility] * POCT Glucose (04/17/2014 5:23 PM EST) Glucose, POC 155 60 - 199 mg/dL [facility] Comment: Supplemental ranges: <140 mg/dL before meals <180 mg/dL all other times of the day Blood specimen (specimen) 04/17/2014 5:23 PM EST 04/17/2014 5:23 PM EST Myrna Shepard MD POINT OF CARE TEST ORDERABLES Performing Organization Address [facility] Co de Phone Number [facility] * POCT Glucose (04/17/2014 2:11 PM EST) Glucose, POC 130 60 - 199 mg/dL [facility] Comment: Supplemental ranges: <140 mg/dL before meals <180 mg/dL all other times of the day Blood specimen (specimen) 04/17/2014 2:11 PM EST 04/17/2014 2:11 PM EST Myrna Shepard MD POINT OF CARE TEST ORDERABLES Performing Organization Address [facility] Co de Phone Number [facility] * (ABNORMAL) Urinalysis with microscopic [...] Urine Dipstick Clear Clear [facility] Specific Curtis Urine Automated 1.021 1.002 - 1.030 [facility] [...] Shepard MD URINE ORDERABLES Performing Organization Address [facility]/ZIP Co de Phone Number [facility] * POCT Glucose (04/17/2014 10:09 AM EST) Glucose, POC 153 60 - 199 mg/dL [facility] Comment: Supplemental ranges: <140 mg/dL before meals <180 mg/dL all other times of the day Blood specimen (specimen) 04/17/2014 10:09 AM EST 04/17/2014 10:09 AM EST Myrna Shepard MD POINT OF CARE TEST ORDERABLES Performing Organization Address [facility] Co de Phone Number [facility] documented in this encounter Visit Diagnoses [...] [place] Moderate Sedation Protocol, For use in the [...] [facility] [place] Moderate Sedation Protocol, For use in the [...] [facility] [place] Moderate Sedation Protocol, For use in the [...] [facility] [place] Moderate Sedation Protocol, For use in the [...] RN) documented in this encounter Care Teams Clinical Laboratory Technologist Relationship Specialty Start Date End Date Ángel Bingham MD [facility] [address] [place] [address] PCP - General 01/31/14 09/01/16 documented as of this encounter
--- OUTSIDE RECORDS SUMMARY | 2024-05-09 16:23 | XMS_ITS | Encounter Summary ---
Author Organization [facility] Address [facility] [place] [address] Care Team Providers Care Automatic Hemmer Name Role Phone Ángel Bingham MD Primary Care Provider [phone] Encounter Details Date Type Department Care Team (Late st Contact Info) Description 07/18/2014 10:40 AM EDT Follow-Up Cardiology at [address] [address] Kit Self MD [facility] [place] [address] Typical atrial flutter; CAD (coronary artery disease); [...] were not included. [facility] [place] [address] CARDIOLOGY OUTPATIENT FOLLOW-UP NOTE Marquez Kimzhang [id number] PCP: ÁNGEL BINGHAM MD 07/18/2014 PRIMARY CARE PROVIDER: ÁNGEL BINGHAM MD PROBLEM LIST: Patient Active Problem List Diagnosis ??? ASCVD (arteriosclerotic cardiovascular disease) ?? Heart catheterization in [facility] in 2007 with placement of a stent in an unspecified vessel ?? Repeat heart catheterization in 2008 with placement of stents to both the LAD and circumflex ?? Followup heart catheterization in 2008 showing stable results in both vessels ?? Her current chest discomfort in a somewhat atypical pattern beginning fall ?? Nuclear stress test at [facility] in [place], [place] May 02, 2013 during which he developed left shoulder and arm discomfort during submaximal exercise on the treadmill and after which he was converted to a pharmacologic test; nuclear imaging showed ejection fraction of 45% with a partially reversible inferior defect ?? Cath [facility] 05/13/2013: normal left main, mild diffuse disease throughout the LAD with an 80% mid stenosis representing a restenosis lesion, mild diffuse disease in the proximal obtuse marginal branch, and mild diffuse disease throughout the right coronary artery; status post 3.0 X 12 mm JON to 80%mid-LAD lesion (in-stent restenosis) ?? Heart catheterization [facility] January 06, 2014 showing normal left main, [...] 80 (documented on ICD interrogation 07/18/14) ?? [id number] score = 3 ?? Patient initially reluctant to be anticoagulated as recommended ??? Atrial pacemaker lead displacement New finding at office follow up 04/10/2014 Plan lead reposition/replacement ??? ICD (implantable cardioverter-defibrillator), dual, in situ New Atrial electrode: Guidant Dextrus Model# 4126-53 cm Serial# [id number] ?? Bipolar, steroid-tipped, active-fixation IS-1 lead ?? [...] at 10 V: No Old Ventricular electrode: [employer] [place] Model# 0292 Serial# [id number] ?? Bipolar, steroid-tipped, active-fixation DF-4 lead ?? [...] Atrial electrode: Guidant Dextrus Model# 4136 Serial# [id number] ?? Bipolar, steroid-tipped, active-fixation IS-1 lead ?? Access: Axillary vein ?? Location Removed 04/17/2014 ?? Implanted: 01/10/2014 Pulse generator: [employer] Incepta Model# E162 Serial# [id number] ?? DDDR ICD ?? Location: Subcutaneous The [...] 2 times daily. 90 tablet 6 ??? [place]-3 Fatty Acids (FISH OIL) 500 mg Cap Take by mouth daily. ??? multivitamin capsule Take 1 capsule by mouth daily. ??? LANCETS MISC by Misc.(Non-Drug; Combo Route) route. ??? lamotrigine (LAMICTAL) 100 mg tablet Take 100 mg by mouth daily. ??? alprazolam (XANAX XR) 3 mg 24 hr tablet Take 3 mg by mouth as needed. ? ? lactobac cmb #1-vrq-muuratibry (PROBIOTIC & ACIDOPHILUS) 300-250 million cell- mg [...] artery disease and has undergone stenting in [place] and has twice undergone heart catheterization at [facility], the first of which was in April [...] Sustained ventricular tachycardia 3. Atrial flutter with [id number] score of 3 DISCUSSION: He is doing [...] anticoagulation for sustained atrial flutter and elevated [id number] score 3. Cardiology follow-up with pacemaker interrogation in 6 months documented in this encounter Plan of Treatment Upcoming Encounters Date Type Department Care Team (Late st Contact Info) Description 06/15/2024 10:00 AM EST Hospital Encounter Non-[place] [address] Arrived documented as of this encounter Visit Diagnoses Diagnosis Typical atrial flutter Atrial flutter CAD (coronary artery disease) Coronary atherosclerosis of unspecified type of vessel, [place] or graft Ventricular tachycardia Paroxysmal ventricular tachycardia documented in this encounter Care Teams Automatic Hemmer Relationship Specialty Start Date End Date Ángel Bingham MD [facility] [address] [place] [address] PCP - General 01/31/14 09/01/16 documented as of this encounter
--- OUTSIDE RECORDS SUMMARY | 2024-05-09 16:23 | XMS_ITS | Encounter Summary ---
[place] [address] Care Team Providers Care Spinning And Winding Supervisor Name Role Phone Ángel Bingham MD Primary Care Provider [phone] Encounter Details Date Type Department Care Team (Late st Contact Info) Description 07/18/2014 Orders Only Cardiology at [address] [address] Social History Tobacco Use Types Packs/Day Years [...] AM EST Hospital Encounter Non-Invasive [place] [address] Arrived documented as of this encounter Procedures Procedure Name Priority Date/Time Associated Diagnosis Comments CARDIAC DEVICE CHECK - REMOTE SCHEDULED Routine 07/18/2014 12:41 AM EDT documented in this encounter Results * Cardiac device check - Remote Scheduled (07/18/2014 12:41 AM EDT) Date Time Interrogation Session [id number] IDCO Type Interrogation Session Remote Scheduled IDCO Clinic Name [facility] IDCO Battery Date Time of Measurements [id number] IDCO Battery Status Beginning of Service IDCO Battery Remaining Longevity 126 mo IDCO Battery Remaining Percentage 100 % IDCO Capacitor Last Charge Date Time [id number] IDCO Capacitor Charge Time 9.9 s IDCO Capacitor Charge Type Reformation IDCO Episode Identifier APM-4 IDCO Episode Date Time [id number] IDCO Episode Type Category Periodic EGM IDCO Episode Vendor Type Category APMRT IDCO Episode Detection And Therapy Details Presenting EGM IDCO Episode Identifier [id number] IDCO Episode Date Time [id number] IDCO Episode Type Category Other IDCO Episode Vendor Type Category XANDER IDCO Episode Detection Interval Ventricular 1,053 ms IDCO Episode Duration 63 s IDCO Episode Detection And Therapy Details IDCO Episode Identifier VA IDCO Episode Date Time [id number] IDCO Episode Type Category Other IDCO Episode Vendor Type Category XANDER IDCO Episode Detection Interval Ventricular 1,000 ms IDCO Episode Duration 60 s IDCO Episode Detection And Therapy Details IDCO Episode Identifier VA IDCO Episode Date Time [id number] IDCO Episode Type Category Other IDCO Episode Vendor Type Category XANDER IDCO Episode Detection Interval Ventricular 1,000 ms IDCO Episode Duration 60 s IDCO Episode Detection And Therapy Details IDCO Episode Identifier IDCO Episode Date Time [id number] IDCO Episode Type Category Other IDCO Episode Vendor Type Category XANDER IDCO Episode Detection Interval Ventricular 952 ms IDCO Episode Duration 57 s IDCO Episode Detection And Therapy Details IDCO Episode Identifier IDCO Episode Date Time [id number] IDCO Episode Type Category Other IDCO Episode Vendor Type Category XANDER IDCO Episode Detection Interval Ventricular 968 ms IDCO Episode Duration 58 s IDCO Episode Detection And Therapy Details IDCO Episode Identifier IDCO Episode Date Time [id number] IDCO Episode Type Category Other IDCO Episode Vendor Type Category XANDER IDCO Episode Detection Interval Ventricular 1,091 ms IDCO Episode Duration 53 s IDCO Episode Detection And Therapy Details IDCO Episode Identifier VA IDCO Episode Date Time [id number] IDCO Episode Type Category Other IDCO Episode Vendor Type Category XANDER IDCO Episode Detection Interval Ventricular 1,071 ms IDCO Episode Duration 44 s IDCO Episode Detection And Therapy Details [facility] IDCO Episode Identifier [id number] IDCO Episode Date Time [id number] IDCO Episode Type Category Other IDCO Episode Vendor Type Category XANDER IDCO Episode Detection Interval Ventricular 1,053 ms IDCO Episode Duration 63 s IDCO Episode Detection And Therapy Details [facility] IDCO Episode Identifier [id number] IDCO Episode Date Time [id number] IDCO Episode Type Category Other IDCO Episode Vendor Type Category XANDER IDCO Episode Detection Interval Ventricular 1,053 ms IDCO Episode Duration 56 s IDCO Episode Detection And Therapy Details [facility] IDCO Episode Identifier [id number] IDCO Episode Date Time [id number] IDCO Episode Type Category Other IDCO Episode Vendor Type Category XANDER IDCO Episode Detection Interval Ventricular 822 ms IDCO Episode Duration 49 s IDCO Episode Detection And Therapy Details [facility] IDCO Episode Identifier ATR-10 IDCO Episode Date Time [id number] IDCO Episode Type Category AT/AF IDCO Episode Vendor Type Category ATR IDCO Episode Detection Interval Atrial 224 ms IDCO Episode Duration 77,575 s IDCO Episode Detection And Therapy Details ATR IDCO Episode Identifier ATR-9 IDCO Episode Date Time [id number] IDCO Episode Type Category AT/AF IDCO Episode Vendor Type Category ATR IDCO Episode Detection Interval Atrial 284 ms IDCO Episode Duration 9 s IDCO Episode Detection And Therapy Details ATR IDCO Episode Identifier ATR-8 IDCO Episode Date Time [id number] IDCO Episode Type Category AT/AF IDCO Episode Vendor Type Category ATR IDCO Episode Detection Interval Atrial 385 ms IDCO Episode Duration 6 s IDCO Episode Detection And Therapy Details ATR IDCO Episode Identifier ATR-7 IDCO Episode Date Time [id number] IDCO Episode Type Category AT/AF IDCO Episode Vendor Type Category ATR IDCO Episode Detection Interval Atrial 833 ms IDCO Episode Duration 1 s IDCO Episode Detection And Therapy Details ATR IDCO Episode Identifier ATR-6 IDCO Episode Date Time [id number] IDCO Episode Type Category AT/AF IDCO Episode Vendor Type Category ATR IDCO Episode Detection Interval Atrial 261 ms IDCO Episode Duration 11 s IDCO Episode Detection And Therapy Details ATR IDCO Episode Identifier V-3 IDCO Episode Date Time [id number] IDCO Episode Type Category VT IDCO Episode Vendor Type Category NSVT IDCO Episode Type Induced Flag NO IDCO Episode Detection Interval Ventricular 331 ms IDCO Episode Duration 6 s IDCO Episode Detection And Therapy Details NonSustV IDCO Episode Identifier ATR-5 IDCO Episode Date Time [id number] IDCO Episode Type Category AT/AF IDCO Episode [...] Episode Identifier ATR-3 IDCO Episode Date Time [id number] IDCO Episode Type Category AT/AF IDCO Episode [...] E162 IDCO Implantable Pulse Generator Serial Number [id number] IDCO Implantable Pulse Generator Food And Nutrition Supervisor [employer] IDCO Implantable Pulse Generator Implant Date 20140110 IDCO Implantable Lead Model 4136 IDCO Implantable Lead Serial Number [id number] IDCO Implantable Lead Food And Nutrition Supervisor Guidant IDCO Implantable Lead Implant Date 20130421 IDCO Implantable Lead Polarity Type Bipolar Lead IDCO Implantable Lead Location Right Atrium IDCO Implantable Lead Model 0292 IDCO Implantable Lead Serial Number [id number] IDCO Implantable Lead Food And Nutrition Supervisor [employer] IDCO Implantable Lead Implant Date IDCO [...] IDCO Lead Channel Pacing Threshold Measurement Method Optical Engineering Manager Manual IDCO Lead Channel Pacing Threshold [...] IDCO Lead Channel Pacing Threshold Measurement Method Optical Engineering Manager Manual IDCO Lead Channel Pacing Threshold [...] filedocumented in this encounter Care Teams Spinning And Winding Supervisor Relationship Specialty Start Date End Date Ángel Bingham MD [facility] [address] [place] [address] PCP - General 01/31/14 09/01/16 documented as of this encounter
--- OUTSIDE RECORDS SUMMARY | 2024-05-09 16:23 | XMS_ITS | Encounter Summary ---
Author Organization [facility] [place] [address] Care Team Providers Care Machine Woodworking Sander Name Role Phone Ángel Bingham MD Primary Care Provider [phone] Encounter Details Date Type Department Care Team (Late st Contact Info) Description 07/18/2014 Orders Only Cardiology at [address] [phone] Social History Tobacco Use Types Packs/Day Years [...] AM EST Hospital Encounter Non-Invasive [place] [address] Arrived documented as of this encounter Procedures Procedure Name Priority Date/Time Associated Diagnosis Comments CARDIAC DEVICE CHECK - IN CLINIC Routine 07/18/2014 10:00 AM EDT documented in this encounter Results * Cardiac device check - In Clinic (07/18/2014 10:00 AM EDT) Date Time Interrogation Session IDCO Type Interrogation Session In Clinic [facility] [place] [facility] [place] Date Time of Measurements [id number] IDCO Battery Status Beginning of Service IDCO Battery Remaining Longevity 126 mo IDCO Battery Remaining Percentage 100 % IDCO Capacitor Last Charge Date Time IDCO Capacitor Charge Time 9.9 s IDCO Capacitor Charge Type Reformation IDCO Capacitor Last Charge Date Time [id number] IDCO Capacitor Charge Time 3.8 s IDCO [...] [id number] IDCO Implantable Pulse Generator Serial Number [id number] IDCO Implantable Pulse Generator Seismic Prospecting Observer [place] [employer]CO Implantable Pulse Generator Implant Date 20140110 IDCO Implantable Lead Model 4136 IDCO Implantable Lead Serial Number [id number] [employer] Implantable Lead Seismic Prospecting Observer Guiddelio IDCO Implantable Lead Implant Date 20130421 IDCO Implantable Lead Polarity Type Bipolar Lead IDCO Implantable Lead Location Right Atrium IDCO Implantable Lead Model 0292 IDCO Implantable Lead Serial Number [id number] [employer]CO Implantable Lead Seismic Prospecting Observer [place] [employer] Implantable Lead Implant Date IDCO Implantable Lead Location Right Ventricle IDCO Lead Channel Measurements Date and Time Start 20140718 IDCO Lead Channel Sensing Intrinsic Amplitude Mean 5.2 mV IDCO Lead Channel Sensing Polarity Bipolar IDCO Lead Channel Pacing Threshold Amplitude 0.6 V IDCO Lead Channel Pacing Threshold Pulse Width 0.5 ms IDCO Lead Channel Pacing Threshold Measurement Method Er Rn Manual IDCO Lead Channel Pacing Threshold Polarity [...] IDCO Lead Channel Pacing Threshold Measurement Method Er Rn Manual IDCO Lead Channel Pacing Threshold Polarity [...] End [id number] IDCO Atrial Tachy Statistic AT/AF [place] Percent 1 % IDCO Therapy Statistic Recent [...] filedocumented in this encounter Care Teams Machine Woodworking Sander Relationship Specialty Start Date End Date Ángel Bingham MD [facility] [phone] [place] [address] PCP - General 01/31/14 09/01/16 documented as of this encounter
--- OUTSIDE RECORDS SUMMARY | 2024-05-09 16:24 | XMS_ITS | Encounter Summary ---
Author Organization [facility] Address [facility] [place] [address] Care Team Providers Care Can Closing Machine Operator Name Role Phone Jennifer Haro MD Primary Care Provider Unavaila ble Encounter Details Date Type Department Care Team (Late st Contact Info) Description 01/10/2014 3:00 PM EDT - 01/10/2014 5:00 PM EDT Surgery [place] [id number] Edy Berry MD [facility] [place] [address] ELECTROPHYSIOLOGY PROCEDURE Social History Tobacco Use Types [...] a 91 day new device check at [facility] [place] [...] 8:10 AM Kit Self MD [facility] Follow-Up Appointments Date and Time Provider and Specialty Location Jan 13, 2014 @ 2:[address] [facility] In[facility] Doctor: Kenia Bauman MD Your Primary Care Provider: JENNIFER HARO MD [phone] For questions regarding this document or issues relating to this hospitalization on the Medical Service, please contact your inpatient physician through the [facility] Cable Mock Up Assembler . Issues afterhours and on weekends will [...] times daily. 90 tablet 6 05/14/2013 01/27/2017 [place]-3 Fatty Acids (FISH OIL) 500 mg Cap Take by mouth daily. 01/14/2016 lamotrigine (LAMICTAL) 100 mg tablet Take 200 mg by mouth daily. 09/01/2018 alprazolam (XANAX XR) 3 mg 24 hr tablet Take 3 mg by mouth nightly. 09/18/2020 [facility] #[facility]-cvy-kboootmofh (PROBIOTIC & ACIDOPHILUS) 300-250 million cell-mg Cap [...] answered at this time. Patient discharged to [facility] with Daughter in stable condition. Wheelchair offered; patient elected to walk. * Edy Torres PA - 01/11/2014 12:10 PM EDT Patient Name: Shahnaz Santiago Patient Age: 63 y.o. Birthdate: 1950 Admit date: 01/06/2014 Attending Physician: Kenia Bauman MD Cardiac Electrophysiology Post-Iimplant Device Interrogation Note Shahnaz Santiago is a 63 y.o. male is POD # 1 following implant of a dual chamber, [employer] ICD for sustained ventricular tachycardia. He [...] in situ V45.02 Device data: Ventricular electrode: [employer] [place] Model# 0292 Serial# [id number] Bipolar, steroid-tipped, active-fixation, single coil DF-4 lead Access: Left axillary vein Location: RV apex R wave, ICD: 9.6 mV Pacing threshold, ICD: 0.6 V at 0.5 ms Impedance, ICD: 913 ohms (74 ohms for shock vector) Pace the diaphragm at 10 V: No Atrial electrode: [employer] Dextrus Model# 4136 Serial# [id number] Bipolar, steroid-tipped, active-fixation IS-1 lead Access: Left axillary vein Location Right atrial appendage P wave, ICD: 4.3 mV Pacing threshold, pacemaker: 1.7 V at 0.5 ms Impedance, pacemaker: 538 ohms Pace the diaphragm at 10 V: No Pulse generator: [employer] Incepta Model# E162 Serial# [id number] DDDR ICD Location: Subcutaneous Defibrillation testing was [...] ~ 91 days. Provider: MAXIMO Leija Provider#: [id number] Consult attending physician: Estefanía Cross MD * Raul Salmeron RN - 01/11/2014 8:04 AM EDT Inpatient Post ICD Implant Teaching Note Verbal teaching was performed today [id number] with the patient including the following: -Brief generalized teaching of how ICDs function, and the patient's specific indication for ICD implant -Activity restrictions post ICD implant -Remote monitoring of the ICD via telephone (patient was given [facility] Latitude communicator today). -ICD insertion [...] of care and discharge planning. Nora Schaeffer LOCATION DIRECTOR CRC/Stacy Pabon MSN BSN RN CRC Office of Care Managment Pager [phone] * Yamile Raya RN - 01/10/2014 6:30 [...] One episode 7 beat run VT ~150bpm. [place] warm, needed to urinate during that time. [...] Code JORI AYALA MD Cardiology S1 (pgr. [id number]) Cardiology Attending Addendum I have interviewed and [...] in to convince him not to leave [facility] without [...] Jennifer Harris - 01/06/2014 4:24 PM EDT Freezer Laboratory Technician Encounter Note Patient Name: Shahnaz Santiago : [id number] MR#: [id number] Admit Date: 01/06/2014 1:50 AM Hospital Day 0 days Narrative: Shahnaz was happy and open to graphic arts technician visit. Assessment: We had a long conversation of what he considered that has been militating against a health life-style: smoking. Moreover he was not a muslim person based on his experiences over the years yet accepts prayers. Intervention and Outcome: We prayed for God's healing & strength. Follow-up: Yes Time in Direct Care: 35 mins Jennifer Zimmer Steven 01/06/2014 * Stacy Pabon RN - 01/06/2014 2:17 PM EDT Office of Care Management Clinical Supervisor Bakery Sanitation Patient Name: Shahnaz Santiago : 1950, 63 yrs Admission Date: 01/06/2014 1:50 AM Attending: Kenia Bauman MD Order to Admit: Signed Record reviewed and patient discussed with multidisciplinary team. Lives in [place] 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 He is independent and drives. Insurance: No Insurance. (Guillermo Aaron OFFICE ASSOCIATE notified) [facility] in [facility] Medical/Surgical:63 yo man with ASCVD [...] Pabon MSN RN Clinical Resource Coordinators Phone: [phone] Pager [phone] documented in this encounter H&P Notes * [...] beginning fall ?? Nuclear stress test at [facility] [place] [facility] in [place], [place] May 02, 2013 during which he developed left shoulder and arm discomfort during submaximal exercise on the treadmill and after which he was converted to a pharmacologic test; nuclear imaging showed ejection fraction of 45% with a partially reversible inferior defect ?? Cath [facility] [place]13[place]: [...] ASCVD (PCI to Cx, LAD; no hx AR) and tobacco use. Andressa recently had a [...] the next morning, and he went to [facility], where ECG showed VT. He was cardioverted with return to NSR with 1st degree AVB, sub-mm STD in the lateral leads. His troponin was indeterminate. The patient was transferred to the [facility], [...] mg by mouth 2 times daily. ??? [place]-3 Fatty Acids (FISH OIL) 500 mg Cap Take by mouth daily. ??? multivitamin capsule Take 1 capsule by mouth daily. ??? LANCETS MISC by Misc.(Non-Drug; Combo Route) route. ??? lamotrigine (LAMICTAL) 100 mg tablet Take 100 mg by mouth daily. ??? alprazolam (XANAX XR) 3 mg 24 hr tablet Take 3 mg by mouth every morning. ? ? lactobac cmb #3-cfp-qmwsrizcow (PROBIOTIC & ACIDOPHILUS) 300-250 million cell- mg [...] of cardiac arrest, pt believes due to AR at age of 53. Heavy smoker. His mother had PVD. 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 Nuclear stress test at [facility] [place] [facility] in [place], [place] May 02, 2013 during which he developed left shoulder and arm discomfort during submaximal exercise on the treadmill and after which he was converted to a pharmacologic test; nuclear imaging showed ejection fraction of 45% with a partially reversible inferior defect ?? Cath [facility] [place]: [...] ASCVD (PCI to Cx, LAD; no hx AR) and tobacco use. 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 He has continued to go tocardiac rehab since then and had been doing well. On weds, 9/17, he was walking in the [place] when he developed sudden onset shortness of breath, which made him feel wobbly. He denied chest pain, palpitations (except for unusual pulsing in right ear lobe), or syncope though he felt weak and near-syncopal with exertion intermittently. His dyspnea remained present when he awoke the next morning, and he went to [facility], where ECG showed VT. He was cardioverted with return to NSR with 1st degree AVB, sub-mm STD in the lateral leads. His troponin was indeterminate. The patient was transferred to the [facility], [...] mg by mouth 2 times daily. ??? [place]-3 Fatty Acids (FISH OIL) 500 mg Cap Take by mouth daily. ??? multivitamin capsule Take 1 capsule by mouth daily. ??? LANCETS MISC by Misc.(Non-Drug; Combo Route) route. ??? lamotrigine (LAMICTAL) 100 mg tablet Take 100 mg by mouth daily. ??? alprazolam (XANAX XR) 3 mg 24 hr tablet Take 3 mg by mouth every morning. ? ? lactobac cmb #3-mdu-bxfwrfauyi (PROBIOTIC & ACIDOPHILUS) 300-250 million cell- mg [...] of cardiac arrest, pt believes due to AR at age of 53. Heavy smoker. His mother had PVD. 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 He should ideally check pulse for any recurrent symptoms of VT (e.g. Weakness, SOB) and not delay hospital presentation as he did this time. Will discuss more with him in AM. * Kenia Bauman MD - 01/06/2014 2:45 AM EDT Cardiology Admission History and Physical Patient Name: Shahnaz Santiago Service: [address] Responsible Attending: Kenia Bauman MD, MD PCP: JENNIFER HARO MD PCP phone #: [phone] ID/Chief Complaint: 63 yo man with ASCVD [...] a chronic, has beenaffecting him 20 years, nhbluryjc-ye-uzilmhnoyl, sternally located discomfort that is constant and [...] rhythm with a 1st degree AV block NC of 214ms, as well as new T-wave inversions and sub 1mm ST depressions in V3-V6. His troponin was an indeterminate value 0.13 (0.06-0.59 =indeterminate). The patient was then transferred to [facility]. , [...] beginning fall ?? Nuclear stress test at [facility] [place] [facility] in [place], [place] May 02, 2013 during which he developed left shoulder and arm discomfort during submaximal exercise on the treadmill and after which he was converted to a pharmacologic test; nuclear imaging showed ejection fraction of 45% with a partially reversible inferior defect ?? Cath [facility] [place]/13[place]: [...] Cap Take by mouth daily. Generic drug: [place]-3 Fatty Acids Refills: 0 glipiZIDE 5 mg [...] by mouth daily. Generic drug: lactobac cmb #3-oeo-ooufeespaj Refills: 0 rosuvastatin 20 mg Tab Commonly [...] ischemia Kalyan Babb, PGY-2 Team Pager # [phone] Cardiology Attending Addendum I have interviewed and [...] 01/12/2014 11:50 AM EDTAssociated Order(s): SCAN DOC: PRESS SHOP SUPERVISOR documented in this encounter Miscellaneous Notes * [...] a chronic, has beenaffecting him 20 years, hipahmkoh-xa-orzyfzxgpl, sternally located discomfort that is constant and [...] rhythm with a 1st degree AV block NC of 214ms, as well as new T-wave inversions and sub 1mm ST depressions in V3-V6. His troponin was an indeterminate value 0.13 (0.06-0.59 =indeterminate). The patient was then transferred to [facility] 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 A consult to smoking cessation was placed [...] (CL) of 1070 ms were as follows: NC: 230 ms HV: 40 ms (?) QRS: 110 ms (no manifest pre-excitation) QT: 450 ms 2) Atrial overdrive pacing (10 mA @ 2 ms) was accomplished from the low right atrium, and the atrioventricular (AV) Wenckebach block CL was observed at 500 ms. There was no pre-excitation or conduction aberrancy identified. The mtohrnct-lk-UBV < QRS-QRS just prior to the observed [...] Cap Take by mouth daily. Generic drug: [place]-3 Fatty Acids Refills: 0 glipiZIDE 5 mg [...] by mouth daily. Generic drug: lactobac cmb #2-rto-gewznkpwgt Refills: 0 rosuvastatin 20 mg Tab Commonly [...] Center 02/07/2014 8:10 AM Kit Self MD [facility] Follow-Up Appointments Date and Time Provider and Specialty Location Jan 13, 2014 @ 2:[address] [facility] Your Inpatient Doctor: Kenia Bauman MD Your Primary Care Provider: JENNIFER HARO MD [phone] For questions regarding this document or issues relating to this hospitalization on the Medical Service, please contact your inpatient physician through the [facility] Cable Mock Up Assembler . Issues afterhours and on weekends will be handled by the Hospitalist staff on-call. Future Appointments and Orders Future Appointments: Provider: Department: Dept Phone: Center: 02/07/2014 8:10 AM Kit Self MD Cardiology [phone] [facility] Joint Appt Nurse One Cardiology Antoni, NAHUN HOLMB 4A [phone] [facility] 04/10/2014 9:30 AM Raul Salmeron RN Cardiology [phone] [facility] For questions regarding this document or issues relating to this hospitalization on the Medical Service, please contact your inpatient physician through the [facility] Cable Mock Up Assembler . Issues afterhours and on weekends will be handled by the Designer Architect staff on-call. Signed: KENIA BAUMAN MD * [...] in the out pt CR program at [facility]. He was admitted with LLOYD and VT. Cardiac cath showed no ischemic etiology of sx. Being considered for ICD. Will refer him back to the [facility] prog at discharge * Miscellaneous - Provider, Skyler - 01/07/2014 2:41 PM EDT * Op Note - José Manuel Cole MD - 01/06/2014 5:34 PM EDT Electrophysiology Study Cable Mock Up Assembler: José Manuel Cole MD Indication: Ventricular tachycardia [...] (CL) of 1070 ms were as follows: NC: 230 ms HV: 40 ms (?) QRS: 110 ms (no manifest pre-excitation) QT: 450 ms 2) Atrial overdrive pacing (10 mA @ 2 ms) was accomplished from the low right atrium, and the atrioventricular (AV) Wenckebach block CL was observed at 500 ms. There was no pre-excitation or conduction aberrancy identified. The jtiokkzm-en-ROM < QRS-QRS just prior to the observed [...] AM EST Hospital Encounter Non[place] [address] Arrived documented as of this encounter Procedures Procedure Name Priority Date/Time Associated Diagnosis Comments PRESS SHOP SUPERVISOR SCAN 01/12/2014 11:50 AM EDT POCT GLUCOSE [...] Routine 01/07/20 3:58 PM EDT CARDIAC ENZYMES ([facility]) Routine 01/06/2014 12:40 PM EDT POCT GLUCOSE Routine 01/06/2014 12:15 PM EDT CARDIAC ENZYMES ([facility] Routine [...] in this encounter Results * SCAN DOC: PRESS SHOP SUPERVISOR (01/12/2014 11:50 AM EDT) Anatomical Region Laterality Modality Other Narrative 01/12/2014 11:53 AM EDT Procedure Note Provider, Scanning - 01/12/2014 11:50 AM EDT Scanning Provider MEDIA MGR SCAN EXT O RDR/RSLT * (ABNORMAL) POCT Glucose (01/11/2014 11:55 AM EDT) Glucose, POC 285(H) 60 - 199 mg/dL [facility] Comment: Supplemental ranges: <140 mg/dL before meals <180 mg/dL all other times of the day Blood specimen (specimen) 01/11/2014 11:55 AM EDT 01/11/2014 11:55 AM EDT Kenia Bauman MD POINT OF CARE TEST O RDERABLES [facility] * XR chest routine PA & [...] MD HEMATOLOGY ORDERABLE S CERDELMAR MILLENNIUM * Magnesium (01/11/2014 3:56 AM EDT) Magnesium [...] intervals supplied above were not validated at [facility]. Results [...] the following links into your internet browser. [email or web address] Blood specimen (specimen) 01/11/2014 3:56 AM EDT 01/11/2014 4:21 AM EDT Narrative Resulting Agency Comment Spec In Lab Kenia Bauman MD CHEMISTRY ORDERABLES Performing Organization Address [facility] Co de Phone Number [facility] * POCT Glucose (01/11/2014 3:46 AM EDT) Glucose, POC 137 60 - 199 mg/dL [facility] Comment: Supplemental ranges: <140 mg/dL before meals <180 mg/dL all other times of the day Blood specimen (specimen) 01/11/2014 3:46 AM EDT 01/11/2014 3:46 AM EDT Kenia Bauman MD POINT OF CARE TEST O RDERABLES Performing Organization Address [facility] de Phone Number [facility] * POCT Glucose (01/10/2014 11:57 PM EDT) Glucose, POC 173 60 - 199 mg/dL [facility] Comment: Supplemental ranges: <140 mg/dL before meals <180 mg/dL all other times of the day Blood specimen (specimen) 01/10/2014 11:57 PM EDT 01/10/2014 11:57 PM EDT Kenia Bauman MD POINT OF CARE TEST O RDERABLES Performing Organization Address [facility] de Phone Number [facility] * (ABNORMAL) POCT Glucose (01/10/2014 8:31 PM EDT) Glucose, POC 201(H) 60 - 199 mg/dL [facility] Comment: Supplemental ranges: <140 mg/dL before meals <180 mg/dL all other times of the day Blood specimen (specimen) 01/10/2014 8:31 PM EDT 01/10/2014 8:31 PM EDT Kenia Bauman MD POINT OF CARE TEST O RDERABLES Performing Organization Address [facility] Co de Phone Number [facility] * POCT Glucose (01/10/2014 6:04 PM EDT) Glucose, POC 164 60 - 199 mg/dL [facility] Comment: Supplemental ranges: <140 mg/dL before meals <180 mg/dL all other times of the day Blood specimen (specimen) 01/10/2014 6:04 PM EDT 01/10/2014 6:04 PM EDT Kenia Bauman MD POINT OF CARE TEST O ASIMBLES Performing Organization Address [facility] de Phone Number [facility] * Electrophysiology Procedure (01/10/2014 5:19 PM [...] with O-silk. Final Parameters: Ventricular electrode: ?? [employer] [place] Model# 0292 Serial# [id number] ??Bipolar, steroid-tipped, active-fixation, ??single coil DF-4 lead ??Access: ? Left axillary vein ??Location: ?RV apex ??R wave, ICD: ? 9.6 mV ??Pacing threshold, ICD: ? 0.6 V at 0.5 ms ??Impedance, ICD: ? 913 ohms (74 ohms for shock vector) ??Pace the diaphragm at 10 V: ??No Atrial electrode: ?? [employer] Dextrus Model# 4136 Serial# [id number] ??Bipolar, steroid-tipped, active-fixation IS-1 lead ??Access: ? Left axillary vein ??Location ? Right atrial appendage ??P wave, ICD: ? 4.3 mV ??Pacing threshold, pacemaker: ??1.7 V at 0.5 ms ??Impedance, pacemaker: ??538 ohms ??Pace the diaphragm at 10 V: ??No Pulse generator: ? [employer] Incepta Model# E162 Serial# [id number] DDDR ICD ??Location: ?Subcutaneous Defibrillation testing was [...] major muscle withO-silk. Final Parameters: Ventricular electrode: [employer] [place] Model# 0292 Serial# [id number] Bipolar, steroid-tipped, active-fixation, single coil DF-4 lead Access: Left axillary vein Location: RV apex R wave, ICD: 9.6 mV Pacing threshold, ICD: 0.6 V at 0.5 ms Impedance, ICD: 913 ohms (74 ohms for shock vector) Pace the diaphragm at 10 V: No Atrial electrode: [employer] Dextrus Model# 4136 Serial# [id number] Bipolar, steroid-tipped, active-fixation IS-1 lead Access: Left axillary vein Location Right atrial appendage P wave, ICD: 4.3 mV Pacing threshold, pacemaker: 1.7 V at 0.5 ms Impedance, pacemaker: 538 ohms Pace the diaphragm at 10 V: No Pulse generator: [employer] Incepta Model# E162 Serial# [id number] DDDR ICD Location: Subcutaneous Defibrillation testing was [...] (ABNORMAL) POCT Glucose (01/10/2014 11:39 AM EDT) Pathologist [facility] Glucose, POC 218(H) 60 - 199 mg/dL [facility] Comment: Supplemental ranges: <140 mg/dL before meals <180 mg/dL all other times of the day Blood specimen (specimen) 01/10/2014 11:39 AM EDT 01/10/2014 11:39 AM EDT Kenia Bauman MD POINT OF CARE TEST O RDERABLES [facility] * (ABNORMAL) POCT Glucose (01/10/2014 7:36 AM EDT) Glucose, POC 242(H) 60 - 199 mg/dL [facility] Comment: Supplemental ranges: <140 mg/dL before meals <180 mg/dL all other times of the day Blood specimen (specimen) 01/10/2014 7:36 AM EDT 01/10/2014 7:36 AM EDT Kenia Bauman MD POINT OF CARE TEST O RDERABLES Performing Organization Address [facility] de Phone Number [facility] * POCT Glucose (01/10/2014 4:25 AM EDT) Glucose, POC 153 60 - 199 mg/dL [facility] Comment: Supplemental ranges: <140 mg/dL before meals <180 mg/dL all other times of the day Blood specimen (specimen) 01/10/2014 4:25 AM EDT 01/10/2014 4:25 AM EDT Kenia Bauman MD POINT OF CARE TEST O RDERABLES Performing Organization Address [facility] de Phone Number MONICA PERALTA * (ABNORMAL) [...] MD HEMATOLOGY ORDERABLE S Performing Organization Address City/[facility]/ZIP Co de Phone Number [facility] * (ABNORMAL) Magnesium (01/10/2014 4:21 AM EDT) Magnesium 0.67(L) 0.69 - 1.07 mmol/L [facility] MILLENNIUM Blood specimen (specimen) 01/10/2014 4:21 AM EDT 01/10/2014 4:36 AM EDT Narrative Resulting Agency Comment Spec In Lab Kenia Bauman MD CHEMISTRY ORDERABLES Performing Organization Address [facility] Co de Phone Number [facility] * Basic Metabolic Panel (non-fasting) (01/10/2014 4:21 AM EDT) Glucose 161 60 - 199 mg/dL [facility] Comment:Diabetes: >=200 mg/d L plus symptoms Blood Urea Nitrogen 17 10 - 20 mg/dL [facility]ERNER MILLENNIUM Creatinine 0.91 0.80 - 1.50 mg/dL [facility] MILLENNIUM Comment: Please note that the pediatric reference intervals supplied above were not validated at [facility]. Results [...] the following links into your internet browser. [email or web address] Blood specimen (specimen) 01/10/2014 4:21 AM EDT 01/10/2014 4:36 AM EDT Narrative Resulting Agency Comment Spec In Lab Kenia Bauman MD CHEMISTRY ORDERABLES Performing Organization Address [facility] Co de Phone Number [facility] * POCT Glucose (01/09/2014 11:25 PM EDT) Glucose, POC 164 60 - 199 mg/dL [facility] Comment: Supplemental ranges: <140 mg/dL before meals <180 mg/dL all other times of the day Blood specimen (specimen) 01/09/2014 11:25 PM EDT 01/09/2014 11:25 PM EDT Kenia Bauman MD POINT OF CARE TEST O RDERABLES Performing Organization Address [facility] Co de Phone Number [facility] * (ABNORMAL) POCT Glucose (01/09/2014 8:03 PM EDT) Glucose, POC 204(H) 60 - 199 mg/dL [facility] Comment: Supplemental ranges: <140 mg/dL before meals <180 mg/dL all other times of the day Blood specimen (specimen) 01/09/2014 8:03 PM EDT 01/09/2014 8:03 PM EDT Kenia Bauman MD POINT OF CARE TEST O RDERABLES Performing Organization Address [facility] Co de Phone Number [facility] * (ABNORMAL) POCT Glucose (01/09/2014 4:34 PM EDT) Glucose, POC 231(H) 60 - 199 mg/dL [facility] Comment: Supplemental ranges: <140 mg/dL before meals <180 mg/dL all other times of the day Blood specimen (specimen) 01/09/2014 4:34 PM EDT 01/09/2014 4:34 PM EDT Kenia Bauman MD POINT OF CARE TEST O RDERABLES Performing Organization Address [facility] de Phone Number [facility] * (ABNORMAL) POCT Glucose (01/09/2014 11:44 AM EDT) Glucose, POC 280(H) 60 - 199 mg/dL [facility] Comment: Supplemental ranges: <140 mg/dL before meals <180 mg/dL all other times of the day Blood specimen (specimen) 01/09/2014 11:44 AM EDT 01/09/2014 11:44 AM EDT Kenia Bauman MD POINT OF CARE TEST O RDERALOREE Performing Organization Address [facility] de Phone Number [facility] * POCT Glucose (01/09/2014 7:51 AM EDT) Glucose, POC 148 60 - 199 mg/dL [facility] Comment: Supplemental ranges: <140 mg/dL before meals <180 mg/dL all other times of the day Blood specimen (specimen) 01/09/2014 7:51 AM EDT 01/09/2014 7:51 AM EDT Kenia Bauman MD POINT OF CARE TEST O RDERABLES Performing Organization Address [facility] Co de Phone Number [facility] * Basic Metabolic Panel (non-fasting) (01/09/2014 4:32 AM EDT) [facility] Glucose 124 60 - 199 mg/dL CERNER MILLENNIUM Comment:Diabetes: >=200 mg/d L plus symptoms Blood Urea Nitrogen 15 10 - 20 mg/dL CERNER MILLENNIUM Creatinine 0.87 0.80 - 1.50 mg/dL CERNER MILLENNIUM Comment: Please note that the pediatric reference intervals supplied above were [place] [facility] [place] Results [...] the following links into your internet browser. [email or web address] Blood specimen (specimen) 01/09/2014 4:32 AM EDT 01/09/2014 4:38 AM EDT Narrative Resulting Agency Comment Spec In Lab Kenia Bauman MD CHEMISTRY ORDERABLES [facility] StereoVision ImagingVALLEYWISE HEALTH MEDICAL CENTERIUM * (ABNORMAL) Differential, Automated (01/09/2014 4:32 AM [...] Absolute 0.01 0.00 - 0.05 x10(3)/mc L MONICA ROSEENNIUM Blood specimen (specimen) 01/09/2014 4:32 AM EDT 01/09/2014 4:38 AM EDT Narrative Resulting Agency Comment Spec In Lab Kenia Bauman MD HEMATOLOGY ORDERABLE S MONICA BENITEZIUM * (ABNORMAL) Hemogram (01/09/2014 4:32 AM EDT) White Blood Cell 8.0 4.0 - 10.0 x10(3)/mc L CERNER MILLENNIUM Red Blood Cell 4.83 4.63 - 6.08 x10(6)/mc L [facility] Hemoglobin 14.5 13.7 - 17.5 gm/dL [facility] Comment:Repeated & verified Hematocrit 43.0 40.0 - 51.0 % [facility] Mean Cell Volume 89.0 79.0 - 92.0 fL [facility] Mean Cell Hemoglobin 30.0 25.6 - 32.2 pg [facility] Mean Cell Hemoglobin Concentration 33.7 32.0 - 36.5 gm/dL [facility] Platelet 184 145 - 370 x10(3)/mc L [facility] RDW Standard Deviation 47.4(H) 35.0 - 46.0 fL [facility] RDW coefficient of variation 14.8(H) 10.9 - 14.4 % [facility] Mean Platelet Volume 10.3 9.0 - 12.0 fL [facility] Blood specimen (specimen) 01/09/2014 4:32 AM EDT 01/09/2014 4:38 AM EDT Narrative Resulting Agency Comment Spec In Lab Kenia Bauman MD HEMATOLOGY ORDERABLE S [facility] * Magnesium (01/09/2014 4:32 AM EDT) [facility] Magnesium 0.76 0.69 - 1.07 mmol/L [facility] Blood specimen (specimen) 01/09/2014 4:32 AM EDT 01/09/2014 4:38 AM EDT Narrative Resulting Agency Comment Spec In Lab Kenia Bauman MD CHEMISTRY ORDERABLES [facility] * POCT Glucose (01/09/2014 4:19 AM EDT) Pathologist [facility] Glucose, POC 114 60 - 199 mg/dL [facility] Comment: Supplemental ranges: <140 mg/dL before meals <180 mg/dL all other times of the day Blood specimen (specimen) 01/09/2014 4:19 AM EDT 01/09/2014 4:19 AM EDT Kenia Bauman MD POINT OF CARE TEST O RDERABLES Performing Organization Address [facility] de Phone Number [facility] * POCT Glucose (01/09/2014 1:41 AM EDT) Glucose, POC 155 60 - 199 mg/dL [facility] Comment: Supplemental ranges: <140 mg/dL before meals <180 mg/dL all other times of the day Blood specimen (specimen) 01/09/2014 1:41 AM EDT 01/09/2014 1:41 AM EDT Kenia Bauman MD POINT OF CARE TEST O RDERABLES Performing Organization Address [facility] Phone Number [facility] * (ABNORMAL) POCT Glucose (01/08/2014 11:19 PM EDT) Glucose, POC 252(H) 60 - 199 mg/dL [facility] Comment: Supplemental ranges: <140 mg/dL before meals <180 mg/dL all other times of the day Blood specimen (specimen) 01/08/2014 11:19 PM EDT 01/08/2014 11:19 PM EDT Kenia Bauman MD POINT OF CARE TEST O RDERABLES Performing Organization Address [facility] Phone Number [facility] * (ABNORMAL) POCT Glucose (01/08/2014 7:50 PM EDT) Glucose, POC 205(H) 60 - 199 mg/dL [facility] Comment: Supplemental ranges: <140 mg/dL before meals <180 mg/dL all other times of the day Blood specimen (specimen) 01/08/2014 7:50 PM EDT 01/08/2014 7:50 PM EDT Kenia Bauman MD POINT OF CARE TEST O RDERABLES Performing Organization Address [facility] Co de Phone Number CERNER MILLENNIUM * POCT Glucose (01/08/2014 5:17 PM EDT) Glucose, POC 194 60 - 199 mg/dL [facility] Comment: Supplemental ranges: <140 mg/dL before meals <180 mg/dL all other times of the day Blood specimen (specimen) 01/08/2014 5:17 PM EDT 01/08/2014 5:17 PM EDT Kenia Bauman MD POINT OF CARE TEST O RDERABLES Performing Organization Address [facility] Co de Phone Number [facility] * (ABNORMAL) POCT Glucose (01/08/2014 2:21 PM EDT) Glucose, POC 230(H) 60 - 199 mg/dL [facility] Comment: Supplemental ranges: <140 mg/dL before meals <180 mg/dL all other times of the day Blood specimen (specimen) 01/08/2014 2:21 PM EDT 01/08/2014 2:21 PM EDT Kenia Bauman MD POINT OF CARE TEST O RDERALOREE Performing Organization Address [facility] Co de Phone Number [facility] * (ABNORMAL) POCT Glucose (01/08/2014 12:04 PM EDT) Glucose, POC 240(H) 60 - 199 mg/dL [facility] Comment: Supplemental ranges: <140 mg/dL before meals <180 mg/dL all other times of the day Blood specimen (specimen) 01/08/2014 12:04 PM EDT 01/08/2014 12:04 PM EDT Kenia Bauman MD POINT OF CARE TEST O RDERABLES Performing Organization Address [facility] Co de Phone Number [facility] * POCT Glucose (01/08/2014 7:56 AM EDT) Glucose, POC 125 60 - 199 mg/dL [facility] Comment: Supplemental ranges: <140 mg/dL before [...] Bauman MD CHEMISTRY ORDERABLES Performing Organization Address [facility] Co de Phone Number CERNER MILLENNIUM [...] MD HEMATOLOGY ORDERABLE S Performing Organization Address City/State/[facility] Co de Phone Number CERNER MILLENNIUM * (ABNORMAL) Hemogram (01/08/2014 7:03 [...] intervals supplied above were [place] validated [place] [facility] [place] Results [...] the following links into your internet browser. [email or web address]/[email or web address] [place] Blood specimen (specimen) 01/08/2014 7:03 AM EDT 01/08/2014 7:08 AM EDT Narrative Resulting Agency Comment Spec In Lab Kenia Bauman MD CHEMISTRY ORDERABLES Performing Organization Address [facility] Phone Number [facility] * (ABNORMAL) POCT Glucose (01/08/2014 3:55 AM EDT) Glucose, POC 219(H) 60 - 199 mg/dL [facility] Comment: Supplemental ranges: <140 mg/dL before meals <180 mg/dL all other times of the day Blood specimen (specimen) 01/08/2014 3:55 AM EDT 01/08/2014 3:55 AM EDT Kenia Bauman MD POINT OF CARE TEST O RDERABLES Performing Organization Address [facility] Phone Number [facility] * POCT Glucose (01/07/2014 11:51 PM EDT) Glucose, POC 153 60 - 199 mg/dL [facility] Comment: Supplemental ranges: <140 mg/dL before meals <180 mg/dL all other times of the day Blood specimen (specimen) 01/07/2014 11:51 PM EDT 01/07/2014 11:51 PM EDT Kenia Bauman MD POINT OF CARE TEST O RDERABLES Performing Organization Address [facility] Phone Number [facility] * POCT Glucose (01/07/2014 9:32 PM EDT) Glucose, POC 190 60 - 199 mg/dL [facility] Comment: Supplemental ranges: <140 mg/dL before meals <180 mg/dL all other times of the day Blood specimen (specimen) 01/07/2014 9:32 PM EDT 01/07/2014 9:32 PM EDT Kenia Bauman MD POINT OF CARE TEST O RDERABLES Performing Organization Address [facility] de Phone Number [facility] * (ABNORMAL) POCT Glucose (01/07/2014 7:36 PM EDT) Glucose, POC 223(H) 60 - 199 mg/dL [facility] MILLENNIUM Comment: Supplemental ranges: <140 mg/dL before meals <180 mg/dL all other times of the day Blood specimen (specimen) 01/07/2014 7:36 PM EDT 01/07/2014 7:36 PM EDT Kenia Bauman MD POINT OF CARE TEST O RDERALOREE Performing Organization Address [facility] de Phone Number [facility] * POCT Glucose (01/07/2014 5:32 PM EDT) Glucose, POC 180 60 - 199 mg/dL [facility] Comment: Supplemental ranges: <140 mg/dL before meals <180 mg/dL all other times of the day Blood specimen (specimen) 01/07/2014 5:32 PM EDT 01/07/2014 5:32 PM EDT Kenia Bauman MD POINT OF CARE TEST O SAMPSON Performing Organization Address [facility] de Phone Number [facility] BENITEZIUM * (ABNORMAL) POCT Glucose (01/07/2014 1:24 PM EDT) Glucose, POC 240(H) 60 - 199 mg/dL [facility] Comment: Supplemental ranges: <140 mg/dL before meals <180 mg/dL all other times of the day Blood specimen (specimen) 01/07/2014 1:24 PM EDT 01/07/2014 1:24 PM EDT Kenia Bauman MD POINT OF CARE TEST O CARLOSERALOREE Performing Organization Address [facility] de Phone Number MONICA BENITEZIUM * (ABNORMAL) Magnesium (01/07/2014 10:00 AM EDT) Magnesium 0.66(L) 0.69 - 1.07 mmol/L [facility] Blood specimen (specimen) 01/07/2014 10:00 AM EDT 01/07/2014 10:17 AM EDT Narrative Resulting Agency Comment Spec In Lab Kenia Bauman MD CHEMISTRY ORDERABLES Performing Organization Address [facility] de Phone Number MONICA BENITEZIUM * Potassium (01/07/2014 10:00 AM EDT) Potassium 4.3 3.5 - 5.0 mmol/L [facility] MILTONENNI[facility] Comment: Please note: ??Patients with WBC >100,000 [...] Bauman MD CHEMISTRY ORDERABLES Performing Organization Address [facility] de Phone Number MONICA BENITEZIUM * POCT Glucose (01/07/2014 9:23 AM EDT) Glucose, POC 178 60 - 199 mg/dL [facility] Comment: Supplemental ranges: <140 mg/dL before meals <180 mg/dL all other times of the day Blood specimen (specimen) 01/07/2014 9:23 AM EDT 01/07/2014 9:23 AM EDT Kenia Bauman MD POINT OF CARE TEST O RDERABLES Performing Organization Address [facility] de Phone Number MONICA BENITEZIUM * Differential, Automated (01/07/2014 3:40 AM EDT) Neutrophil % 60.4 34.0 - 71.0 % CERNER MILLENNIUM Neutrophil Absolute 5.37 1.50 - 6.30 [...] ORDERABLE S CERDELMAR BENITEZIUM * (ABNORMAL) Hemogram (01/07/2014 3:40 AM EDT) [...] MD HEMATOLOGY ORDERABLE S Performing Organization Address [facility] Co de Phone Number [facility] MILLENNIUM * (ABNORMAL) Magnesium (01/07/2014 3:40 AM EDT) Magnesium 0.61(L) 0.69 - 1.07 mmol/L CERNER MILLENNIUM Blood specimen (specimen) 01/07/2014 3:40 AM EDT 01/07/2014 3:43 AM EDT Narrative Resulting Agency Comment Spec In Lab Kenia Bauman MD CHEMISTRY ORDERABLES Performing Organization Address [facility] de Phone Number CERNER MILLENNIUM * (ABNORMAL) Basic Metabolic Panel (non-fasting) (01/07/2014 3:40 AM EDT) Glucose 93 60 - 199 mg/dL CERNER MILLENNIUM Comment:Diabetes: >=200 mg/d L plus symptoms Blood Urea Nitrogen 20 10 - 20 mg/dL CERNER MILLENNIUM Creatinine 0.81 0.80 - 1.50 mg/dL CERNER MILLENNIUM Comment: Please note that the pediatric reference intervals supplied above were [place] [facility] [place] Results [...] the following links into your internet browser. [email or web address] Blood specimen (specimen) 01/07/2014 3:40 AM EDT 01/07/2014 3:43 AM EDT Narrative Resulting Agency Comment Spec In Lab Kenia Bauman MD CHEMISTRY ORDERABLES Performing Organization Address [facility] de Phone Number [facility] * POCT Glucose (01/07/2014 3:39 AM EDT) Glucose, POC 95 60 - 199 mg/dL [facility] Comment: Supplemental ranges: <140 mg/dL before meals <180 mg/dL all other times of the day Blood specimen (specimen) 01/07/2014 3:39 AM EDT 01/07/2014 3:39 AM EDT Kenia Bauman MD POINT OF CARE TEST O RDERABLES Performing Organization Address [facility] de Phone Number [facility] * POCT Glucose (01/06/2014 11:40 PM EDT) Glucose, POC 130 60 - 199 mg/dL [facility] Comment: Supplemental ranges: <140 mg/dL before meals <180 mg/dL all other times of the day Blood specimen (specimen) 01/06/2014 11:40 PM EDT 01/06/2014 11:40 PM EDT Kenia Bauman MD POINT OF CARE TEST O RDERALOREE Performing Organization Address [facility] de Phone Number [employer] * POCT Glucose (01/06/2014 9:23 PM EDT) Glucose, POC 173 60 - 199 mg/dL [facility] CloudSwitchIUM Comment: Supplemental ranges: <140 mg/dL before meals <180 mg/dL all other times of the day Blood specimen (specimen) 01/06/2014 9:23 PM EDT 01/06/2014 9:23 PM EDT Kenia Bauman MD POINT OF CARE TEST O SAM[place] Performing Organization Address [facility] Phone Number [facility] * POCT Glucose (01/06/2014 6:42 PM EDT) Glucose, POC 125 60 - 199 mg/dL [facility] Comment: Supplemental ranges: <140 mg/dL before meals <180 mg/dL all other times of the day Blood specimen (specimen) 01/06/2014 6:42 PM EDT 01/06/2014 6:42 PM EDT Kenia Bauman MD POINT OF CARE TEST O SAM[place]ON Performing Organization Address [facility] de Phone Number [employer] * Electrophysiology Procedure (01/06/2014 5:20 PM EDT) [...] Modality Other Narrative 01/09/2014 7:14 AM EDT ?[facility] ? Cardiac Catheterization/Intervention Report ? Patient Name: PamelaShahnaz ? Procedure Date: 01/06/2014 ? A #: [id number] ? Primary Physician: Jaron Jarquin ? Case #: [id number] ? File Name: [id number] ? Catheterization Order Number: [id number] ? [facility] ? Final Report [place], [place] ? Patient Name: ? Shahnaz Santiago ? ID#: ?[id number] ? : ?1950 ? Procedure Date: ? January 06, 2014 ? Case #: ? [id number] ? Room: ? 1 ? Case Physician: ? Jaron Jarquin M.D. ? Start: ?14:40 ?Fellow: ? Jennifer Nguyen Chiaco, ?Admission: ??01/06/2014 ?M.D. ? Referring Physician: ??Jennifer Haro M.D. ? Procedures: ?* Coronary Angiography ?* Left Heart Catheterization ?* Coronary Flow [place] Measurement ?* Coronary Instantaneous Wave-Free Ratio ?* [...] Note Jaron Jarquin II, MD - 01/09/2014 [facility] Cardiac Catheterization/Intervention Report Patient Name: Shahnaz Santiago Procedure Date: 01/06/2014 A #: [id number] Primary Physician: Jaron Jarquin Case #: File Name: [id number] Catheterization Order Number: [id number] [facility] FinalReport [place], [place] Patient Name: Shahnaz Santiago ID#:[id number] :1950 Procedure Date: January 06, 2014 Case #: Room: 1 Case Physician: Jaron Jarquin M.D. Start: 14:40 Fellow: Jennifer Argueta, Admission:01/06/2014 [place] Referring Physician: Jennifer Haro M.D. Procedures: * Coronary Angiography * Left Heart Catheterization * Coronary Flow [place] Measurement * Coronary Instantaneous Wave-Free Ratio * [...] damage. Diagnosis of acute, evolving or recent AR requires a typical rise and gradual fall [...] consensus document of the Joint Society of Cardiology/[place] College of Cardiology Committee for the redefinition of myocardial infarction. ??Journal of the [place] College of Cardiology 2000; 36: 959-969] Creatine [...] CARE TEST O RDERABLES Performing Organization Address [facility] de Phone Number MONICA PERALTA * Cardiac Enzymes (01/06/2014 11:30 AM EDT) Troponin-T Not Perf <=0.03 ng/mL MONICA PERALTA Comment: Unable to quantitate due to sample hemolysis. ??Sample redraw suggested. Called Maximiliano, 01/06/14 12:30, blr 0.03 ng/mL: Represents the 99th percentile upper reference limit for normals. >0.03 ng/mL: Elevated cardiac troponin T level indicative of myocardial damage. Diagnosis of acute, evolving or recent AR requires a typical rise and gradual fall [...] consensus document of the Joint Society of Cardiology/[place] College of Cardiology Committee for the redefinition of myocardial infarction. ??Journal of the [place] College of Cardiology 2000; 36: 959-969] Creatine Kinase 132 0 - 200 unit/L MONICA PERALTA Blood specimen (specimen) 01/06/2014 11:30 AM EDT 01/06/2014 11:45 AM EDT Narrative Resulting Agency Comment Spec In Lab Kenia Bauman MD CHEMISTRY ORDERABLES Performing Organization Address [facility] Co de Phone Number MONICA [...] MD HEMATOLOGY ORDERABLE S Performing Organization Address [facility] de Phone Number [facility] * LDL Cholesterol, Direct (01/06/2014 11:30 AM EDT) LDL Cholesterol, Direct 13 <=99 mg/dL [facility] Comment: The National Cholesterol Education Program (NCEP) has set the following guidelines for LDL Cholesterol: Reference range: ?? Optimal: ?<100 mg/dL ?? Near Optimal/Above Optimal: ?? 100-129 mg/dL ?? Borderline high: ?130-159 mg/dL ?? High: ? 160-189 mg/dL ?? Very high: ?>kp=230 mg/dL TATI 2001: 285(19):0057-9357 Blood specimen (specimen) 01/06/2014 11:30 AM EDT 01/06/2014 11:45 AM EDT Narrative Resulting Agency Comment Spec In Lab Kenia Bauman MD CHEMISTRY ORDERABLES Performing Organization Address [facility] de Phone Number [facility] * Echocardiogram Transthoracic(Leb) (01/06/2014 10:29 AM EDT) EF 56 HEARTLAB SYSTEM Anatomical Region Laterality Modality Other 01/06/2014 Narrative 01/06/2014 10:41 AM EDT Procedure: ? Transthoracic Echocardiogram Patient: ? PAMELA Gordon ? (Age): 1950(63) Med Rec#: ?[id number] ? Sex: ?M ? Site Loc: ?[facility] ? Ht / Wt: ??185(cm)/92(kg) Pt. Loc: ? [facility] ?BSA: ?2.17 Study Date: ?01/06/2014 ? Pt. Type: Inpatient Tape: ? Referring: Kenia Bauman ([id number]) Referring: BRUCE Community Health Worker: Jodie Givens Diagnosis:CPT Code(s): ??Echo Full (82059), ??Spectral Doppler (84927), Color Doppler (23885), Indication(s): ??Tachycardia Rhythm: HR ?BP ?114/63 ?? [...] ? Mid-Inferior ?Normal ? Mid-Inferoseptal ?Normal ? [place]-Septal ? Normal ? [place]-Anterior ? Normal ? [place]-Lateral ?Normal ? [place]-Inferior ? Normal ? [place]-Tip ?Normal ? Chambers ?Value ?Units (Range) ? [...] 01/06/2014 10:41:12 Images reviewed and interpretation verified [facility] Cardiac Ultrasound Laboratory Procedure Note Warren Atkinson MD - 01/06/2014 Procedure: Transthoracic Echocardiogram Patient: PAMELA Gordon (Age): 1950(63) Med Rec#: [id number] Sex: M [place] [facility] [place] Ht / Wt: 185(cm)/92(kg) Pt. Loc: CCU BSA: 2.17 Study Date: 01/06/2014 Pt. Type: Inpatient Tape: Referring: Kenia Bauman ([id number]) Referring: BRUCE Community Health Worker: Jodie Givens Diagnosis:CPT Code(s): Echo Full (87205), Spectral Doppler (65857), Color Doppler (52723), Indication(s): Tachycardia Rhythm: HR BP 114/63 SUMMARY: [...] Normal Mid-Posterolateral Normal Mid-Inferior Normal Mid-Inferoseptal Normal [place]-Septal Normal [place]-Anterior Normal [place]-Lateral Normal [place]-Inferior Normal [place]-Tip Normal Chambers Value Units (Range) EF Bi-p [...] 01/06/2014 10:41:12 Images reviewed and interpretation verified [facility] Cardiac Ultrasound Laboratory Kenia Bauman MD ECHO ORDERABLES * EKG 12 Lead (01/06/2014 9:29 AM EDT) Ventricular rate 61 BPM MUSE SYSTEM Atrial Rate 61 BPM MUSE SYSTEM P-R Interval 210 ms MUSE SYSTEM QRS Duration 128 ms MUSE SYSTEM Q-T Interval 450 ms MUSE SYSTEM QTC Calculated (Bezet) 453 ms MUSE SYSTEM Calculated P [place] 36 degrees MUSE SYSTEM Calculated R [place] -51 degrees MUSE SYSTEM Calculated T [place] -62 degrees MUSE SYSTEM INTERPRETATION Sinus rhythm [...] POC 104 60 - 199 mg/dL MONICA StereoV[facility] ImagingSEPIDEHIUM Comment: Supplemental ranges: <140 mg/dL before meals <180 mg/dL all other times of the day Blood specimen (specimen) 01/06/2014 8:28 AM EDT 01/06/2014 8:28 AM EDT Kenia Bauman MD POINT OF CARE TEST O RDERABLES Performing Organization Address [facility]/ZIP Co de Phone Number [employer] * XR chest routine PA & lateral [...] Impression Left basilar subsegmental atelectasis. Procedure Note Sera, Union A, MD - 01/06/2014 Examination CHEST ROUTINE 2 [...] Bauman MD URINE ORDERABLES Performing Organization Address City/[facility]/ZIP Co de Phone Number MONICA [facility]reo[facility] ImagingENNIUM * Sodium, urine, random (01/06/2014 3:06 AM EDT) Sodium, Urine 85 mmol/L MONICA BENITEZIUM Urine specimen (specimen) 01/06/2014 3:06 AM EDT 01/06/2014 3:15 AM EDT Narrative Resulting Agency Comment Spec In Lab Kenia Bauman MD URINE ORDERABLES MONICA [facility] ImagingSEPIDEHIUM * (ABNORMAL) Urinalysis with microscopic (01/06/2014 3:06 [...] Urine Dipstick Hazy(A) Clear CERNER MILLENNIUM Specific Alpha Urine Automated 1.019 1.002 - 1.030 CERNER [...] damage. Diagnosis of acute, evolving or recent AR requires a typical rise and gradual fall [...] consensus document of the Joint Society of Cardiology/[place] College of Cardiology Committee for the redefinition of myocardial infarction. ??Journal of the [place] College of Cardiology 2000; 36: 959-969] Creatine [...] MD HEMATOLOGY ORDERABLE S Performing Organization Address [facility] Co de Phone Number [facility] * (ABNORMAL) Magnesium (01/06/2014 2:50 AM EDT) Magnesium 0.67(L) 0.69 - 1.07 mmol/L [facility] Blood specimen (specimen) 01/06/2014 2:50 AM EDT 01/06/2014 2:58 AM EDT Narrative Resulting Agency Comment Spec In Lab Kenia Bauman MD CHEMISTRY ORDERABLES Performing Organization Address [facility] de Phone Number [facility] * (ABNORMAL) Lipid panel (fasting) (01/06/2014 2:50 AM EDT) Cholesterol, Total 55 <=199 mg/dL [facility] Comment: Recommendations of the NCEP Adult Treatment Panel for the following risk cutoff thresholds for the [place] population: Desirable: <200 mg/dL Borderline High: 200-239 mg/dL High: > or = 240 mg/dL Triglyceride 148 <=149 mg/dL [facility] Comment: Reference Range: Normal triglycerides: ??<150 mg/dL Borderline high: ??150-199 mg/dL High: ??200-499 mg/dL Very high: ??>jx=098 mg/dL TATI 2001; [phone]):[phone] HDL Cholesterol 26(L) >=40 mg/dL [facility] Comment: Reference range: ??Low HDL: ?? < 40 mg/dL ??Normal: ?40-60 mg/dL ??Desirable: > 60 mg/dL TATI 2001; [phone] LDL Cholesterol -1 <=99 mg/dL [facility] Comment: Reference range: ?? Optimal: ?<100 mg/dL ?? Near Optimal/Above Optimal: ?? 100-129 mg/dL ?? Borderline high: ?130-159 mg/dL ?? High: ? 160-189 mg/dL ?? Very high: ?>dm=074 mg/dL TATI 2001: [phone]):[phone] Cholesterol/HDL Ratio 2.1 ratio [facility] Comment: A Cholesterol to HDL ratio below 4:1 is desirable. ??Studies suggest that increased CAD risk occurs at ratios above 5 for females and above 6 for men. ? [place] [employer] ??(http://www.americanheart.org) ? Yenny Int Med, 1994; 121:641 ? AM J Med, 1998; 105(1A):48S Blood specimen (specimen) 01/06/2014 2:50 AM EDT 01/06/2014 2:58 AM EDT Narrative Resulting Agency Comment Spec In Lab Kenia Bauman MD CHEMISTRY ORDERABLES [facility] * (ABNORMAL) Basic Metabolic Panel (non-fasting) (01/06/2014 2:50 AM EDT) [facility] Glucose 107 60 - 199 mg/dL [facility] Comment:Diabetes: >=200 mg/d L plus symptoms Blood Urea Nitrogen 31(H) 10 - 20 mg/dL [facility] Creatinine 1.41 0.80 - 1.50 mg/dL [facility] Comment: Please note that the pediatric reference intervals supplied above were [place] [facility] [place] Results [...] the following links into your internet browser. [email or web address] Blood specimen (specimen) 01/06/2014 2:50 AM EDT 01/06/2014 2:58 AM EDT Narrative Resulting Agency Comment Spec In Lab Kenia Bauman MD CHEMISTRY ORDERABLES Performing Organization Address [place]/[facility] Co de Phone Number MONICA PERALTA * EKG 12 Lead (01/06/2014 2:01 AM EDT) Ventricular rate 69 BPM MUSE SYSTEM Atrial Rate 69 BPM MUSE SYSTEM P-R Interval 212 ms MUSE SYSTEM QRS Duration 126 ms MUSE SYSTEM Q-T Interval 416 ms MUSE SYSTEM QTC Calculated (Bezet) 445 ms MUSE SYSTEM Calculated P [place] 18 degrees MUSE SYSTEM Calculated R [place] -55 degrees MUSE SYSTEM Calculated T [place] -70 degrees MUSE SYSTEM INTERPRETATION Sinus rhythm with 1st degree A-V block Left anterior fascicular block Non-specific intra-ventricula r conduction block T wave abnormality, consider inferior ischemia T wave abnormality, consider anterolateral ischemia Abnormal ECG Confirmed by MD Thomas Douglas ([id number]) on 01/07/2014 4:01:06 PM MUSE SYSTEM 01/06/2014 2:01 AM EDT 01/07/2014 4:01 PM EDT Unknown ECG ORDERABLES Performing Organization Address [place]/[facility]/ZIP Co de Phone Number MUSE SYSTEM documented [...] to induce or maintain moderate sedation [place] [facility] [place]erate [...] to induce or maintain moderate sedation [place] [facility] [place]erate [...] RN) documented in this encounter Care Teams Can Closing Machine Operator Relationship Specialty Start Date End Date Jennifer Haro MD PCP - General 01/07/12 01/30/14 documented as of this encounter
--- OUTSIDE RECORDS SUMMARY | 2024-05-09 16:24 | XMS_ITS | Encounter Summary ---
Author Organization [facility] Address [facility] [place] [address] Care Team Providers Care Fire Department Marine Engineer Name Role Phone Jennifer Haro MD Primary Care Provider Court uribe Encounter Details Date Type Department Care Team (Latest Contact Info) Description 01/06/2014 1:50 AM EDT - 01/11/2014 1:38 PM EDT Hospital Encounter Intermediate [place] [id number] Kenia Bauman MD [facility] [place] [address] ASCVD (arteriosclerotic cardiovascular disease); Non-ST elevation myocardial [...] a 91 day new device check at [facility]. 4. Transtelephonic device follow [...] Center 02/07/2014 8:10 AM Kit Self MD [facility] Cardio [place] [facility] Follow-Up Appointments Date and Time Provider and Specialty Location Jan 13, 2014 @ 2:[address] Bingham [facility] Your Inpatient Doctor: Kenia Bauman MD Your Primary Care Provider: JENNIFER HARO MD [phone] For questions regarding this document or issues relating to this hospitalization on the Medical Service, please contact your inpatient physician through the [facility] Traffic Operations Manager . Issues afterhours and on weekends [...] times daily. 90 tablet 6 05/14/2013 01/27/2017 [place]-3 Fatty Acids (FISH OIL) 500 mg Cap Take by mouth daily. 01/14/2016 lamotrigine (LAMICTAL) 100 mg tablet Take 200 mg by mouth daily. 09/01/2018 alprazolam (XANAX XR) 3 mg 24 hr tablet Take 3 mg by mouth nightly. 09/18/2020 [id number] (PROBIOTIC & ACIDOPHILUS) 300-250 million cell-mg Cap [...] answered at this time. Patient discharged to [facility] with Daughter in stable condition. Wheelchair offered; patient elected to walk. * Edy Torres PA - 01/11/2014 12:10 PM EDT Patient Name: Shahnaz Santiago Patient Age: 63 y.o. Birthdate: 1950 Admit date: 01/06/2014 Attending Physician: Kenia Bauman MD Cardiac Electrophysiology Post-Iimplant Device Interrogation Note Shahnaz Santiago is a 63 y.o. male is POD # 1 following implant of a dual chamber, [employer] ICD for sustained ventricular tachycardia. He [...] in situ V45.02 Device data: Ventricular electrode: [employer] Fortine Model# 0292 Serial# [id number] Bipolar, steroid-tipped, active-fixation, single coil DF-4 lead Access: Left axillary vein Location: RV apex R wave, ICD: 9.6 mV Pacing threshold, ICD: 0.6 V at 0.5 ms Impedance, ICD: 913 ohms (74 ohms for shock vector) Pace the diaphragm at 10 V: No Atrial electrode: [employer] Dextrus Model# 4136 Serial# [id number] Bipolar, steroid-tipped, active-fixation IS-1 lead Access: Left axillary vein Location Right atrial appendage P wave, ICD: 4.3 mV Pacing threshold, pacemaker: 1.7 V at 0.5 ms Impedance, pacemaker: 538 ohms Pace the diaphragm at 10 V: No Pulse generator: [employer] Incepta Model# E162 Serial# [id number] DDDR ICD Location: Subcutaneous Defibrillation testing was [...] ~ 91 days. Provider: MAXIMO Leija Provider#: [id number] Consult attending physician: Estefanía Cross MD * Raul Salmeron RN - 01/11/2014 8:04 AM EDT Inpatient Post ICD Implant Teaching Note Verbal teaching was performed today bpus-mo-nmvd with the patient including the following: -Brief generalized teaching of how ICDs function, and the patient's specific indication for ICD implant -Activity restrictions post ICD implant -Remote monitoring of the ICD via telephone (patient was given [facility] Latitude communicator today). -ICD insertion site wound [...] home today Code Status: Full Code EDIE FOLRES, Cardiology S1 (pgr. [id number]) Cardiology Attending Addendum [...] ICD placement today. Pt is insured with [email or web address]. No discharge needs identified at this time. Will continue to follow for coordination of care and discharge planning. Nora Schaeffer ROUTE RELIEF DRIVER [facility]/Stacy Pabon MSN BSN RN [facility] Office of Care Managment Pager [phone] * Yamile Raya RN - 01/10/2014 6:30 [...] One episode 7 beat run VT ~150bpm. [place] warm, needed to urinate during that time. [...] in to convince him not to leave [facility] without an ICD. Will await his decision. [...] Jennifer Harris - 01/06/2014 4:24 PM EDT Healthcare Risk Control Consultant Encounter Note Patient Name: Shahnaz Santiago : [id number] MR#: [id number] Admit Date: 01/06/2014 1:50 AM Hospital Day 0 days Narrative: Shahnaz was happy and open to technical advisor visit. Assessment: We had a long conversation of what he considered that has been militating against a health life-style: smoking. Moreover he was not a episcopalian person based on his experiences over the years yet accepts prayers. Intervention and Outcome: We prayed for God's healing & strength. Follow-up: Yes Time in Direct Care: 35 mins Jennifer Zimmer Steven 01/06/2014 * Stacy Pabon RN - 01/06/2014 2:17 PM EDT Office of Care Management Clinical Registered Medical Assistant Patient Name: Shahnaz Santiago : 1950, 63 yrs Admission Date: 01/06/2014 1:50 AM Attending: Kenia Bauman MD Order to Admit: Signed Record reviewed and patient discussed with multidisciplinary team. Lives in [place], [place] 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 He is independent and drives. Insurance: No Insurance. (Guillermo Aaron TRAIN STARTER notified) [facility] in [facility] Medical/Surgical:63 yo man with ASCVD s/p [...] Pabon MSN RN Clinical Resource Coordinators Phone: [phone] Pager [phone] documented in this encounter H&P Notes * Edy Berry MD - 01/07/2014 5:02 PM EDT Inpatient Cardiac Electrophysiology Follow-up Note Date of Consultation: 01/07/2014 Admit Date: 01/06/2014 Place of Service: Inpatient Unit Reason for Consult: We are seeing Shahnaz Santiago for the evaluation of ventricular tachycardia Patient Active Problem List Diagnosis ??? ASCVD (arteriosclerotic cardiovascular disease) Overview Note: ?? Heart catheterization in [facility] in 2007 with placement of a stent in an unspecified vessel ?? Repeat heart catheterization in 2008 with placement of stents to both the LAD and circumflex ?? Followup heart catheterization in 2008 showing stable results in both vessels ?? Her current chest discomfort in a somewhat atypical pattern beginning fall ?? Nuclear stress test at [facility] in [place], [place] May 02, 2013 during which he [...] ASCVD (PCI to Cx, LAD; no hx [place]) and tobacco use. Andressa recently had a [...] the next morning, and he went to [facility], where ECG showed VT. He was cardioverted with return to NSR with 1st degree AVB, sub-mm STD in the lateral leads. His troponin was indeterminate. The patient was transferred to the [facility], where he has remained in NSR. [...] mg by mouth 2 times daily. ??? [place]-3 Fatty Acids (FISH OIL) 500 mg Cap Take by mouth daily. ??? multivitamin capsule Take 1 capsule by mouth daily. ??? LANCETS MISC by Misc.(Non-Drug; Combo Route) route. ??? lamotrigine (LAMICTAL) 100 mg tablet Take 100 mg by mouth daily. ??? alprazolam (XANAX XR) 3 mg 24 hr tablet Take 3 mg by mouth every morning. ? ? lactobac cmb #5-iyi-vkkwcerwwu (PROBIOTIC & ACIDOPHILUS) 300-250 million cell- mg [...] of cardiac arrest, pt believes due to [place] at age of 53. Heavy smoker. His mother had PVD. 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 Heart catheterization in [facility] in 2007 with placement of a stent in an unspecified vessel ?? Repeat heart catheterization in 2008 with placement of stents to both the LAD and circumflex ?? Followup heart catheterization in 2008 showing stable results in both vessels ?? Her current chest discomfort in a somewhat atypical pattern beginning fall ?? Nuclear stress test at [facility] in [place], [place] May 02, 2013 during which he [...] ASCVD (PCI to Cx, LAD; no hx [place]) and tobacco use. Hemost recently had a [...] the next morning, and he went to [facility], where ECG showed VT. He was cardioverted with return to NSR with 1st degree AVB, sub-mm STD in the lateral leads. His troponin was indeterminate. The patient was transferred to the [facility], where he has remained in NSR. [...] mg by mouth 2 times daily. ??? [place]-3 Fatty Acids (FISH OIL) 500 mg Cap Take by mouth daily. ??? multivitamin capsule Take 1 capsule by mouth daily. ??? LANCETS MISC by Misc.(Non-Drug; Combo Route) route. ??? lamotrigine (LAMICTAL) 100 mg tablet Take 100 mg by mouth daily. ??? alprazolam (XANAX XR) 3 mg 24 hr tablet Take 3 mg by mouth every morning. ? ? lactobac cmb #3-zpq-xvrtjnjvwz (PROBIOTIC & ACIDOPHILUS) 300-250 million cell- mg [...] of cardiac arrest, pt believes due to [place] at age of 53. Heavy smoker. His mother had PVD. 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 He should ideally check pulse for any recurrent symptoms of VT (e.g. Weakness, SOB) and not delay hospital presentation as he did this time. Will discuss more with him in AM. * Kenia Bauman MD - 01/06/2014 2:45 AM EDT Cardiology Admission History and Physical Patient Name: Shahnaz Santiago Service: [address] Responsible Attending: Kenia Bauman MD, MD PCP: JENNIFER HARO MD PCP phone #: [phone] ID/Chief Complaint: 63 yo man with ASCVD [...] a chronic, has beenaffecting him 20 years, aqmnozqhu-jw-oudcsqpsxa, sternally located discomfort that is constant and [...] change from his baseline he went to [facility] ED for evaluation.There he was found to be tachycardic in the 160s, BP 108/64 and sating 96% on room air. An EKG revealed a monomorphic tachycardia. He was given versed 4mg, cardiovert with 120J biphasic. The patient's repeat EKG showed sinus rhythm with a 1st degree AV block KY of 214ms, as well as new T-wave inversions and sub 1mm ST depressions in V3-V6. His troponin was an indeterminate value 0.13 (0.06-0.59 =indeterminate). The patient was then transferred to [facility]. , OSH labs prior to transfer: 15.2 [...] cardiovascular disease) ?? Heart catheterization in [facility] in 2007 with placement of a stent in an unspecified vessel ?? Repeat heart catheterization in 2008 with placement of stents to both the LAD and circumflex ?? Followup heart catheterization in 2008 showing stable results in both vessels ?? Her current chest discomfort in a somewhat atypical pattern beginning fall ?? Nuclear stress test at [facility] in [place], [place] May 02, 2013 during which he [...] Cap Take by mouth daily. Generic drug: [place]-3 Fatty Acids Refills: 0 glipiZIDE 5 mg [...] by mouth daily. 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 An EKG revealed a monomorphic tachycardia. He was given versed 4mg, cardiovert with 120J biphasic. The patient's repeat EKG showed sinus rhythm with a 1st degree AV block KY of 214ms, as well as new T-wave inversions and sub 1mm ST depressions in V3-V6. His troponin was an indeterminate value 0.13 (0.06-0.59 =indeterminate). The patient was then transferred to [facility]. 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 A consult to smoking cessation was placed [...] (CL) of 1070 ms were as follows: KY: 230 ms HV: 40 ms (?) QRS: 110 ms (no manifest pre-excitation) QT: 450 ms 2) Atrial overdrive pacing (10 mA @ 2 ms) was accomplished from the low right atrium, and the atrioventricular (AV) Wenckebach block CL was observed at 500 ms. There was no pre-excitation or conduction aberrancy identified. The mfgoqdpt-oc-QKM < QRS-QRS just prior to the observed [...] Cap Take by mouth daily. Generic drug: [place]-3 Fatty Acids Refills: 0 glipiZIDE 5 mg [...] by mouth daily. Generic drug: lactobac cmb #5-mvy-mbjqpqnmfl Refills: 0 rosuvastatin 20 mg Tab Commonly [...] Center 02/07/2014 8:10 AM Kit Self MD [facility] Cardio [facility] Follow-Up Appointments Date and Time Provider and Specialty Location Jan 13, 2014 @ 2:[address] [facility] In[facility] Doctor: Kenia Bauman MD Your Primary Care Provider: JENNIFER HARO MD [phone] For questions regarding this document or issues relating to this hospitalization on the Medical Service, please contact your inpatient physician through the [facility] Traffic Operations Manager . Issues afterhours and on weekends will be handled by the Hospitalist staff on-call. Future Appointments and Orders Future Appointments: Provider: Department: Dept Phone: Center: 02/07/2014 8:10 AM Kit Self MD Cardiology [phone] [facility] Joint Appt Nurse One Cardiology NAHUN Corrales 4A [phone] [place] [facility] 04/10/2014 9:30 AM Raul Salmeron RN Cardiology [phone] [facility] For questions regarding this document or issues relating to this hospitalization on the Medical Service, please contact your inpatient physician through the [facility] Traffic Operations Manager . Issues afterhours and on weekends will be handled by the [facility] Operator staff on-call. Signed: KENIA BAUMAN MD * [...] in the out pt CR program at [facility]. He was admitted with LLOYD and VT. Cardiac cath showed no ischemic etiology of sx. Being considered for ICD. Will refer him back to the [facility] prog at discharge * Miscellaneous - Provider, Scanning - 01/07/2014 2:41 PM EDT * Op Note - José Manuel Cole MD - 01/06/2014 5:34 PM EDT Electrophysiology Study Traffic Operations Manager: José Manuel Cole MD Indication: Ventricular [...] (CL) of 1070 ms were as follows: KY: 230 ms HV: 40 ms (?) QRS: 110 ms (no manifest pre-excitation) QT: 450 ms 2) Atrial overdrive pacing (10 mA @ 2 ms) was accomplished from the low right atrium, and the atrioventricular (AV) Wenckebach block CL was observed at 500 ms. There was no pre-excitation or conduction aberrancy identified. The wkhojfry-ed-BFU < QRS-QRS just prior to the observed [...] EST Hospital Encounter Non-[place] [address] Arrived documented as of this encounter Procedures Procedure Name Priority Date/Time Associated Diagnosis Comments FRONT DESK MANAGER SCAN 01/12/2014 11:50 AM EDT POCT [...] Routine 01/07/20 3:58 PM EDT CARDIAC ENZYMES ([facility]) Routine 01/06/2014 12:40 PM EDT POCT GLUCOSE Routine 01/06/2014 12:15 PM EDT CARDIAC ENZYMES ([facility]) Routine 01/06/2014 11:30 AM EDT APTT STAT [...] this encounter Results * SCAN DOC: FRONT DESK MANAGER (01/12/2014 11:50 AM EDT) Anatomical Region Laterality Modality Other Narrative 01/12/2014 11:53 AM EDT Procedure Note Provider, Scanning - 01/12/2014 11:50 AM EDT Scanning Provider MEDIA MGR SCAN EXT O RDR/RSLT * (ABNORMAL) POCT Glucose (01/11/2014 11:55 AM EDT) Glucose, POC 285(H) 60 - 199 mg/dL [facility] Comment: Supplemental ranges: <140 mg/dL before meals <180 mg/dL all other times of the day Blood specimen (specimen) 01/11/2014 11:55 AM EDT 01/11/2014 11:55 AM EDT Kenia Bauman MD POINT OF CARE TEST O RDERABLES [facility] * XR chest routine PA & [...] intervals supplied above were not validated at [facility]. Results from pediatric patients [...] the following links into your internet browser. [email or web address] Blood specimen (specimen) 01/11/2014 3:56 AM EDT 01/11/2014 4:21 AM EDT Narrative Resulting Agency Comment Spec In Lab Kenia Bauman MD CHEMISTRY ORDERABLES Performing Organization Address [facility] Phone Number [facility] * POCT Glucose (01/11/2014 3:46 AM EDT) Glucose, POC 137 60 - 199 mg/dL [facility] Comment: Supplemental ranges: <140 mg/dL before meals <180 mg/dL all other times of the day Blood specimen (specimen) 01/11/2014 3:46 AM EDT 01/11/2014 3:46 AM EDT Kenia Bauman MD POINT OF CARE TEST O RDERABLES Performing Organization Address [facility] Phone Number [facility] * POCT Glucose (01/10/2014 11:57 PM EDT) Glucose, POC 173 60 - 199 mg/dL [facility] Comment: Supplemental ranges: <140 mg/dL before meals <180 mg/dL all other times of the day Blood specimen (specimen) 01/10/2014 11:57 PM EDT 01/10/2014 11:57 PM EDT Kenia Bauman MD POINT OF CARE TEST O RDERABLES Performing Organization Address [facility] Phone Number [facility] [employer] [employer] [facility] * (ABNORMAL) POCT Glucose (01/10/2014 8:31 PM EDT) Glucose, POC 201(H) 60 - 199 mg/dL [facility] [employer] Comment: Supplemental ranges: <140 mg/dL before meals <180 mg/dL all other times of the day Blood specimen (specimen) 01/10/2014 8:31 PM EDT 01/10/2014 8:31 PM EDT Kenia Bauman MD POINT OF CARE TEST O RDMARY Performing Organization Address [facility] de Phone Number [facility] [employer] * POCT Glucose (01/10/2014 6:04 PM EDT) Glucose, POC 164 60 - 199 mg/dL [facility] [employer] Comment: Supplemental ranges: <140 mg/dL before meals <180 mg/dL all other times of the day Blood specimen (specimen) 01/10/2014 6:04 PM EDT 01/10/2014 6:04 PM EDT Kenia Bauman MD POINT OF CARE TEST O [place] Performing Organization Address [facility] de Phone Number [facility] [employer] * Electrophysiology Procedure (01/10/2014 5:19 PM EDT) [...] with O-silk. Final Parameters: Ventricular electrode: ?? [employer] Fortine Model# 0292 Serial# [id number] ??Bipolar, steroid-tipped, active-fixation, ??single coil DF-4 lead ??Access: ? Left axillary vein ??Location: ?RV apex ??R wave, ICD: ? 9.6 mV ??Pacing threshold, ICD: ? 0.6 V at 0.5 ms ??Impedance, ICD: ? 913 ohms (74 ohms for shock vector) ??Pace the diaphragm at 10 V: ??No Atrial electrode: ?? [employer] Dextrus Model# 4136 Serial# [id number] ??Bipolar, steroid-tipped, active-fixation IS-1 lead ??Access: ? Left axillary vein ??Location ? Right atrial appendage ??P wave, ICD: ? 4.3 mV ??Pacing threshold, pacemaker: ??1.7 V at 0.5 ms ??Impedance, pacemaker: ??538 ohms ??Pace the diaphragm at 10 V: ??No Pulse generator: ? [employer] Incepta Model# E162 Serial# [id number] DDDR ICD ??Location: ?Subcutaneous Defibrillation testing was [...] major muscle withO-silk. Final Parameters: Ventricular electrode: [employer] Fortine Model# 0292 Serial# [id number] Bipolar, steroid-tipped, active-fixation, single coil DF-4 lead Access: Left axillary vein Location: RV apex R wave, ICD: 9.6 mV Pacing threshold, ICD: 0.6 V at 0.5 ms Impedance, ICD: 913 ohms (74 ohms for shock vector) Pace the diaphragm at 10 V: No Atrial electrode: [employer] Dextrus Model# 4136 Serial# [id number] Bipolar, steroid-tipped, active-fixation IS-1 lead Access: Left axillary vein Location Right atrial appendage P wave, ICD: 4.3 mV Pacing threshold, pacemaker: 1.7 V at 0.5 ms Impedance, pacemaker: 538 ohms Pace the diaphragm at 10 V: No Pulse generator: [employer] Incepta Model# E162 Serial# [id number] DDDR ICD Location: Subcutaneous Defibrillation testing was [...] (ABNORMAL) POCT Glucose (01/10/2014 11:39 AM EDT) [facility] Signature Glucose, POC 218(H) 60 - 199 mg/dL [facility] Comment: Supplemental ranges: <140 mg/dL before meals <180 mg/dL all other times of the day Blood specimen (specimen) 01/10/2014 11:39 AM EDT 01/10/2014 11:39 AM EDT Kenia Bauman MD POINT OF CARE TEST O RDERALOREE Performing Organization Address [facility] de Phone Number [facility] * (ABNORMAL) POCT Glucose (01/10/2014 7:36 AM EDT) Glucose, POC 242(H) 60 - 199 mg/dL [facility] Comment: Supplemental ranges: <140 mg/dL before meals <180 mg/dL all other times of the day Blood specimen (specimen) 01/10/2014 7:36 AM EDT 01/10/2014 7:36 AM EDT Kenia Bauman MD POINT OF CARE TEST O [place] Performing Organization Address [facility] de Phone Number [facility] * POCT Glucose (01/10/2014 4:25 AM EDT) Glucose, POC 153 60 - 199 mg/dL [facility] Comment: Supplemental ranges: <140 mg/dL before meals <180 mg/dL all other times of the day Blood specimen (specimen) 01/10/2014 4:25 AM EDT 01/10/2014 4:25 AM EDT Kenia Bauman MD POINT OF CARE TEST O [place] Performing Organization Address [facility] de Phone Number MONICA PERALTA * (ABNORMAL) Differential, Automated (01/10/2014 4:21 AM EDT) Neutrophil % 45.9 34.0 - 71.0 % [facility] Neutrophil Absolute 4.06 1.50 - 6.30 x10(3)/mc L CERNER MILLENNIUM Lymph % 40.1 19.0 - 53.0 % [facility] MILLENNIUM Lymphocytes Abs 3.6 1.0 - 3.6 x10(3)/mc L [facility] Monocyte % 6.0 4.0 - 13.0 % [facility] MILLENNIUM Monocyte Abs 0.5 0.2 - 1.0 [...] MD HEMATOLOGY ORDERABLE S Performing Organization Address [facility] Co de Phone Number [facility] * (ABNORMAL) Magnesium (01/10/2014 4:21 AM EDT) Pathologist [facility] Magnesium 0.67(L) 0.69 - 1.07 mmol/L [facility] Blood specimen (specimen) 01/10/2014 4:21 AM EDT 01/10/2014 4:36 AM EDT Narrative Resulting Agency Comment Spec In Lab Kenia Bauman MD CHEMISTRY ORDERABLES Performing Organization Address [facility] de Phone Number [facility] * Basic Metabolic Panel (non-fasting) (01/10/2014 4:21 AM EDT) Pathologist [facility] Glucose 161 60 - 199 mg/dL [facility] Comment:Diabetes: >=200 mg/d L plus symptoms Blood Urea Nitrogen 17 10 - 20 mg/dL [facility] Creatinine 0.91 0.80 - 1.50 mg/dL [facility] Comment: Please note that the pediatric reference intervals supplied above were not validated at [facility]. Results from pediatric patients should be interpreted in conjunction to the patient's age, height and muscle mass. Sodium 139 135 - 145 mmol/L [facility]UM Potassium 4.3 3.5 - 5.0 mmol/L [facility]UM Comment: Please note: ??Patients with WBC [...] the following links into your internet browser. [email or web address] [email or web address] Blood specimen (specimen) 01/10/2014 4:21 AM EDT 01/10/2014 4:36 AM EDT Narrative Resulting Agency Comment Spec In Lab Kenia Bauman MD CHEMISTRY ORDERABLES Performing Organization Address [facility] Co de Phone Number [facility] * POCT Glucose (01/09/2014 11:25 PM EDT) Glucose, POC 164 60 - 199 mg/dL [facility] Comment: Supplemental ranges: <140 mg/dL before meals <180 mg/dL all other times of the day Blood specimen (specimen) 01/09/2014 11:25 PM EDT 01/09/2014 11:25 PM EDT Kenia Bauman MD POINT OF CARE TEST O RDERABLES Performing Organization Address [facility] Co de Phone Number [facility] * (ABNORMAL) POCT Glucose (01/09/2014 8:03 PM EDT) Glucose, POC 204(H) 60 - 199 mg/dL [facility] Comment: Supplemental ranges: <140 mg/dL before meals <180 mg/dL all other times of the day Blood specimen (specimen) 01/09/2014 8:03 PM EDT 01/09/2014 8:03 PM EDT Kenia Bauman MD POINT OF CARE TEST O RDERALOREE Performing Organization Address [facility] de Phone Number [facility] * (ABNORMAL) POCT Glucose (01/09/2014 4:34 PM EDT) Glucose, POC 231(H) 60 - 199 mg/dL [facility] Comment: Supplemental ranges: <140 mg/dL before meals <180 mg/dL all other times of the day Blood specimen (specimen) 01/09/2014 4:34 PM EDT 01/09/2014 4:34 PM EDT Kenia Bauman MD POINT OF CARE TEST O CARLOSERALOREE Performing Organization Address [facility] de Phone Number [facility] * (ABNORMAL) POCT Glucose (01/09/2014 11:44 AM EDT) Glucose, POC 280(H) 60 - 199 mg/dL [facility] Comment: Supplemental ranges: <140 mg/dL before meals <180 mg/dL all other times of the day Blood specimen (specimen) 01/09/2014 11:44 AM EDT 01/09/2014 11:44 AM EDT Kenia Bauman MD POINT OF CARE TEST O CARLOSERALOREE Performing Organization Address [facility] de Phone Number [facility] * POCT Glucose (01/09/2014 7:51 AM EDT) Glucose, POC 148 60 - 199 mg/dL [facility] Comment: Supplemental ranges: <140 mg/dL before meals <180 mg/dL all other times of the day Blood specimen (specimen) 01/09/2014 7:51 AM EDT 01/09/2014 7:51 AM EDT Kenia Bauman MD POINT OF CARE TEST O RDERABLES [facility] * Basic Metabolic Panel (non-fasting) (01/09/2014 4:32 AM EDT) Glucose 124 60 - 199 mg/dL [facility] Comment:Diabetes: >=200 mg/d L plus symptoms Blood Urea Nitrogen 15 10 - 20 mg/dL [facility] Creatinine 0.87 0.80 - 1.50 mg/dL [facility] Comment: Please note that the pediatric reference intervals supplied above were not validated at [facility]. Results from pediatric patients [...] the following links into your internet browser. [email or web address] [email or web address] Blood specimen (specimen) 01/09/2014 4:32 AM EDT 01/09/2014 4:38 AM EDT Narrative Resulting Agency Comment Spec In Lab Kenia Bauman MD CHEMISTRY ORDERABLES [facility] * (ABNORMAL) Differential, Automated (01/09/2014 4:32 AM EDT) Pathologist [facility] Neutrophil % 44.1 34.0 - 71.0 % [...] ORDERABLE S [facility]SEENNI[facility] * (ABNORMAL) Hemogram (01/09/2014 4:32 AM EDT) Pathologist [facility] White Blood Cell 8.0 4.0 - 10.0 x10(3)/mc L [facility] Red Blood Cell 4.83 4.63 - 6.08 x10(6)/mc L [facility] Hemoglobin 14.5 13.7 - 17.5 gm/dL [facility] Comment:Repeated & verified Hematocrit 43.0 40.0 - 51.0 % [facility] Mean Cell Volume 89.0 79.0 - 92.0 fL [facility] Mean Cell Hemoglobin 30.0 25.6 - 32.2 pg [facility] Mean Cell Hemoglobin Concentration 33.7 32.0 - 36.5 gm/dL [facility] Platelet 184 145 - 370 x10(3)/mc L [facility] RDW Standard Deviation 47.4(H) 35.0 - 46.0 fL [facility] RDW coefficient of variation 14.8(H) 10.9 - 14.4 % [facility] Mean Platelet Volume 10.3 9.0 - 12.0 fL [facility] Blood specimen (specimen) 01/09/2014 4:32 AM EDT 01/09/2014 4:38 AM EDT Narrative Resulting Agency Comment Spec In Lab Kenia Bauman MD HEMATOLOGY ORDERABLE S Performing Organization Address [facility] de Phone Number [facility] * Magnesium (01/09/2014 4:32 AM EDT) [facility] Magnesium 0.76 0.69 - 1.07 mmol/L [facility] Blood specimen (specimen) 01/09/2014 4:32 AM EDT 01/09/2014 4:38 AM EDT Narrative Resulting Agency Comment Spec In Lab Kenia Bauman MD CHEMISTRY ORDERABLES Performing Organization Address [facility] de Phone Number [facility] * POCT Glucose (01/09/2014 4:19 AM EDT) [facility] Glucose, POC 114 60 - 199 mg/dL [facility] Comment: Supplemental ranges: <140 mg/dL before meals <180 mg/dL all other times of the day Blood specimen (specimen) 01/09/2014 4:19 AM EDT 01/09/2014 4:19 AM EDT Kenia Bauman MD POINT OF CARE TEST O RDERABLES Performing Organization Address [facility] de Phone Number [facility] * POCT Glucose (01/09/2014 1:41 AM EDT) Glucose, POC 155 60 - 199 mg/dL [facility] Comment: Supplemental ranges: <140 mg/dL before meals <180 mg/dL all other times of the day Blood specimen (specimen) 01/09/2014 1:41 AM EDT 01/09/2014 1:41 AM EDT Kenia Bauman MD POINT OF CARE TEST O SAMPSON Performing Organization Address [facility] Phone Number [facility] * (ABNORMAL) POCT Glucose (01/08/2014 11:19 PM EDT) Glucose, POC 252(H) 60 - 199 mg/dL [facility] Comment: Supplemental ranges: <140 mg/dL before meals <180 mg/dL all other times of the day Blood specimen (specimen) 01/08/2014 11:19 PM EDT 01/08/2014 11:19 PM EDT Kenia Bauman MD POINT OF CARE TEST O RDERALOREE Performing Organization Address [facility] de Phone Number [facility] * (ABNORMAL) POCT Glucose (01/08/2014 7:50 PM EDT) Glucose, POC 205(H) 60 - 199 mg/dL [facility] Comment: Supplemental ranges: <140 mg/dL before meals <180 mg/dL all other times of the day Blood specimen (specimen) 01/08/2014 7:50 PM EDT 01/08/2014 7:50 PM EDT Kenia Bauman MD POINT OF CARE TEST O RDERABLES Performing Organization Address [facility]/ZIP Co de Phone Number [facility] * POCT Glucose (01/08/2014 5:17 PM EDT) Glucose, POC 194 60 - 199 mg/dL [facility] Comment: Supplemental ranges: <140 mg/dL before meals <180 mg/dL all other times of the day Blood specimen (specimen) 01/08/2014 5:17 PM EDT 01/08/2014 5:17 PM EDT Kenia Bauman MD POINT OF CARE TEST O RDERABLES Performing Organization Address [facility] Co de Phone Number [facility] * (ABNORMAL) POCT Glucose (01/08/2014 2:21 PM EDT) Glucose, POC 230(H) 60 - 199 mg/dL [facility] Comment: Supplemental ranges: <140 mg/dL before meals <180 mg/dL all other times of the day Blood specimen (specimen) 01/08/2014 2:21 PM EDT 01/08/2014 2:21 PM EDT Kenia Bauman MD POINT OF CARE TEST O RDERABLES Performing Organization Address [facility] Co de Phone Number [facility] BENITEZI[facility] * (ABNORMAL) POCT Glucose (01/08/2014 12:04 PM EDT) Glucose, POC 240(H) 60 - 199 mg/dL [facility] Comment: Supplemental ranges: <140 mg/dL before meals <180 mg/dL all other times of the day Blood specimen (specimen) 01/08/2014 12:04 PM EDT 01/08/2014 12:04 PM EDT Kenia Bauman MD POINT OF CARE TEST O RDERABLES Performing Organization Address [facility] Co de Phone Number [facility] ROSEEN[facility] * POCT Glucose (01/08/2014 7:56 AM EDT) Pathologist [facility] Glucose, POC 125 60 - 199 mg/dL [facility] Comment: Supplemental ranges: <140 mg/dL before meals <180 mg/dL all other times of the day Blood specimen (specimen) 01/08/2014 7:56 AM EDT 01/08/2014 7:56 AM EDT Kenia Bauman MD POINT OF CARE TEST O RDERABLES Performing Organization Address [facility] Co de Phone Number [facility] * (ABNORMAL) Magnesium (01/08/2014 7:03 AM EDT) Pathologist [facility] Magnesium 0.58(L) 0.69 - 1.07 mmol/L [facility] Blood specimen (specimen) 01/08/2014 7:03 AM EDT 01/08/2014 7:09 AM EDT Narrative Resulting Agency Comment Spec In Lab Kenia Bauman MD CHEMISTRY ORDERABLES Performing Organization Address [facility] de Phone Number [facility] ROSE[facility] * Differential, Automated (01/08/2014 7:03 AM EDT) Pathologist [facility] Neutrophil % 46.8 34.0 - 71.0 % [...] intervals supplied above were not validated at [facility]. Results from pediatric patients [...] the following links into your internet browser. [email or web address] [email or web address] Blood specimen (specimen) 01/08/2014 7:03 AM EDT 01/08/2014 7:08 AM EDT Narrative Resulting Agency Comment Spec In Lab Kenia Bauman MD CHEMISTRY ORDERABLES Performing Organization Address [facility] de Phone Number [facility] * (ABNORMAL) POCT Glucose (01/08/2014 3:55 AM EDT) Glucose, POC 219(H) 60 - 199 mg/dL [facility] Comment: Supplemental ranges: <140 mg/dL before meals <180 mg/dL all other times of the day Blood specimen (specimen) 01/08/2014 3:55 AM EDT 01/08/2014 3:55 AM EDT Kenia Bauman MD POINT OF CARE TEST O RDERABLES Performing Organization Address [facility] Phone Number [facility] * POCT Glucose (01/07/2014 11:51 PM EDT) Glucose, POC 153 60 - 199 mg/dL [facility] Comment: Supplemental ranges: <140 mg/dL before meals <180 mg/dL all other times of the day Blood specimen (specimen) 01/07/2014 11:51 PM EDT 01/07/2014 11:51 PM EDT Kenia Bauman MD POINT OF CARE TEST O RDERABLES Performing Organization Address [facility] de Phone Number [facility] * POCT Glucose (01/07/2014 9:32 PM EDT) Glucose, POC 190 60 - 199 mg/dL [facility] Comment: Supplemental ranges: <140 mg/dL before meals <180 mg/dL all other times of the day Blood specimen (specimen) 01/07/2014 9:32 PM EDT 01/07/2014 9:32 PM EDT Kenia Bauman MD POINT OF CARE TEST O RDERABLES Performing Organization Address [facility] de Phone Number [facility] * (ABNORMAL) POCT Glucose (01/07/2014 7:36 PM EDT) Glucose, POC 223(H) 60 - 199 mg/dL [facility] Comment: Supplemental ranges: <140 mg/dL before meals <180 mg/dL all other times of the day Blood specimen (specimen) 01/07/2014 7:36 PM EDT 01/07/2014 7:36 PM EDT Kenia Bauman MD POINT OF CARE TEST O [place] Performing Organization Address [facility] Co de Phone Number [facility] * POCT Glucose (01/07/2014 5:32 PM EDT) Glucose, POC 180 60 - 199 mg/dL [facility] Comment: Supplemental ranges: <140 mg/dL before meals <180 mg/dL all other times of the day Blood specimen (specimen) 01/07/2014 5:32 PM EDT 01/07/2014 5:32 PM EDT Kenia Bauman MD POINT OF CARE TEST O [place] Performing Organization Address [facility] de Phone Number [facility] * (ABNORMAL) POCT Glucose (01/07/2014 1:24 PM EDT) Glucose, POC 240(H) 60 - 199 mg/dL [facility] Comment: Supplemental ranges: <140 mg/dL before meals <180 mg/dL all other times of the day Blood specimen (specimen) 01/07/2014 1:24 PM EDT 01/07/2014 1:24 PM EDT Kenia Bauman MD POINT OF CARE TEST O [place] Performing Organization Address [facility] Co de Phone Number [facility] * (ABNORMAL) Magnesium (01/07/2014 10:00 AM EDT) Magnesium 0.66(L) 0.69 - 1.07 mmol/L [facility] Blood specimen (specimen) 01/07/2014 10:00 AM EDT 01/07/2014 10:17 AM EDT Narrative Resulting Agency Comment Spec In Lab Kenia Bauman MD CHEMISTRY ORDERABLES Performing Organization Address [facility] de Phone Number [facility] * Potassium (01/07/2014 10:00 AM EDT) Potassium 4.3 3.5 - 5.0 mmol/L [facility] Comment: Please note: ??Patients with WBC [...] Bauman MD CHEMISTRY ORDERABLES Performing Organization Address [facility] de Phone Number [facility] * POCT Glucose (01/07/2014 9:23 AM EDT) Glucose, POC 178 60 - 199 mg/dL [facility] Comment: Supplemental ranges: <140 mg/dL before meals <180 mg/dL all other times of the day Blood specimen (specimen) 01/07/2014 9:23 AM EDT 01/07/2014 9:23 AM EDT Kenia Bauman MD POINT OF CARE TEST O RDERABLES Performing Organization Address [facility] Co de Phone Number [facility] * Differential, Automated (01/07/2014 3:40 AM EDT) Neutrophil % 60.4 34.0 - 71.0 % [facility] Neutrophil Absolute 5.37 1.50 - 6.30 x10(3)/mcL [facility] Lymph % 29.1 19.0 - 53.0 % [...] Lab Kenia Bamuan MD HEMATOLOGY ORDERABLE S [facility] * (ABNORMAL) Hemogram (01/07/2014 3:40 AM [...] MD HEMATOLOGY ORDERABLE S Performing Organization Address [facility] Co de Phone Number [facility] * (ABNORMAL) Magnesium (01/07/2014 3:40 AM EDT) Pathologist [facility] Magnesium 0.61(L) 0.69 - 1.07 mmol/L [facility] Blood specimen (specimen) 01/07/2014 3:40 AM EDT 01/07/2014 3:43 AM EDT Narrative Resulting Agency Comment Spec In Lab Kenia Bauman MD CHEMISTRY ORDERABLES Performing Organization Address [facility] Co de Phone Number [...] intervals supplied above were not validated at [facility]. Results from pediatric patients [...] the following links into your internet browser. [email or web address] [email or web address] Blood specimen (specimen) 01/07/2014 3:40 AM EDT 01/07/2014 3:43 AM EDT Narrative Resulting Agency Comment Spec In Lab Kenia Bauman MD CHEMISTRY ORDERABLES Performing Organization Address [facility] de Phone Number [facility] * POCT Glucose (01/07/2014 3:39 AM EDT) [facility] Signature Glucose, POC 95 60 - 199 mg/dL [facility] Comment: Supplemental ranges: <140 mg/dL before meals <180 mg/dL all other times of the day Blood specimen (specimen) 01/07/2014 3:39 AM EDT 01/07/2014 3:39 AM EDT Kenia Bauman MD POINT OF CARE TEST O RDERABLES Performing Organization Address [facility] Co de Phone Number [facility] * POCT Glucose (01/06/2014 11:40 PM EDT) Glucose, POC 130 60 - 199 mg/dL [facility] Comment: Supplemental ranges: <140 mg/dL before meals <180 mg/dL all other times of the day Blood specimen (specimen) 01/06/2014 11:40 PM EDT 01/06/2014 11:40 PM EDT Kenia Bauman MD POINT OF CARE TEST O RDERABLES Performing Organization Address [facility] de Phone Number [facility] * POCT Glucose (01/06/2014 9:23 PM EDT) Glucose, POC 173 60 - 199 mg/dL [facility] Comment: Supplemental ranges: <140 mg/dL before meals <180 mg/dL all other times of the day Blood specimen (specimen) 01/06/2014 9:23 PM EDT 01/06/2014 9:23 PM EDT Kenia Bauman MD POINT OF CARE TEST O RDERALOREE Performing Organization Address [facility] de Phone Number [facility] * POCT Glucose (01/06/2014 6:42 PM EDT) Glucose, POC 125 60 - 199 mg/dL [facility] Comment: Supplemental ranges: <140 mg/dL before meals <180 mg/dL all other times of the day Blood specimen (specimen) 01/06/2014 6:42 PM EDT 01/06/2014 6:42 PM EDT Kenia Bauman MD POINT OF CARE TEST O RDERABLES Performing Organization Address [facility] de Phone Number [facility] * Electrophysiology Procedure (01/06/2014 5:20 PM [...] Modality Other Narrative 01/09/2014 7:14 AM EDT ?[facility] ? Cardiac Catheterization/Intervention Report ? Patient Name: Shahnaz Santiago ? Procedure Date: 01/06/2014 ? A #: [id number] ? Primary Physician: Jaron Jarquin ? Case #: [id number] ? File Name: [id number] ? Catheterization Order Number: [id number] ? [facility] ? Final Report [place], [place] ? Patient Name: ? Shahnaz Santiago ? ID#: ?[id number] ? : ?1950 ? Procedure Date: ? January 06, 2014 ? Case #: ? [id number] ? Room: ? 1 ? Case Physician: ? Jaron Jarquin M.D. ? Start: ?14:40 ?Fellow: ? Jennifer Argueta, ?Admission: ??01/06/2014 ?M.D. ? Referring Physician: ??Jennifer Haro M.D. ? Procedures: ?* Coronary Angiography ?* Left Heart Catheterization ?* Coronary Flow [place] Measurement ?* Coronary Instantaneous Wave-Free Ratio ?* [...] Note Jaron Jarquin II, MD - 01/09/2014 [facility] Cardiac Catheterization/Intervention Report Patient Name: Shahnaz Santiago Procedure Date: 01/06/2014 A #: [id number] Primary Physician: Jaron Jarquin Case #: File Name: [id number] Catheterization Order Number: [id number] [facility] FinalReport [place], [place] Patient Name: Shahnaz Santiago ID#:[id number] :1950 Procedure Date: January 06, 2014 Case #: Room: 1 Case Physician: Jaron Jarquin M.D. Start: 14:40 Fellow: Jennifer Argueta, Admission:01/06/2014 [facility] Referring Physician: Jennifer Haro M.D. Procedures: * Coronary Angiography * Left Heart Catheterization * Coronary Flow [place] Measurement * Coronary Instantaneous Wave-Free Ratio * [...] 12:40 PM EDT) Troponin-T 0.10(H) <=0.03 ng/mL [facility] Comment: 0.03 ng/mL: Represents the 99th [...] consensus document of the Joint Society of Cardiology/[employer] College of Cardiology Committee for the redefinition of myocardial infarction. ??Journal of the [employer] College [employer]iology 2000; 36: 959-969] Creatine Kinase 127 0 - 200 unit/L [facility] PERALTA Blood specimen (specimen) 01/06/2014 12:40 PM EDT 01/06/2014 12:52 PM EDT Narrative Resulting Agency Comment Spec In Lab Kenia Bauman MD CHEMISTRY ORDERABLES [facility] * POCT Glucose (01/06/2014 12:15 PM EDT) Glucose, POC 165 60 - 199 mg/dL [facility] Comment: Supplemental ranges: <140 mg/dL before meals <180 mg/dL all other times of the day Blood specimen (specimen) 01/06/2014 12:15 PM EDT 01/06/2014 12:15 PM EDT Kenia Bauman MD POINT OF CARE TEST O RDERABLES Performing Organization Address [facility] Co de Phone Number [...] consensus document of the Joint Society of Cardiology/[employer] College of Cardiology Committee for the redefinition of myocardial infarction. ??Journal of the [employer] College of Cardiology 2000; 36: 959-969] Creatine Kinase 132 0 - 200 unit/L [facility] PERALTA Blood specimen (specimen) 01/06/2014 11:30 AM EDT 01/06/2014 11:45 AM EDT Narrative Resulting Agency Comment Spec In Lab Kenia Bauman MD CHEMISTRY ORDERABLES Performing Organization Address [facility]/ZIP Co de Phone Number [facility] PERALTA * (ABNORMAL) APTT (01/06/2014 11:30 AM EDT) Partial Thromboplastin Time 48(H) 25 - 35 sec [facility] PERALTA Comment: Recommended therapeutic PTT range for full dose unfractionated heparin is 80-114 seconds. Blood specimen (specimen) 01/06/2014 11:30 AM EDT 01/06/2014 11:45 AM EDT Narrative Resulting Agency Comment Spec In Lab Kenia Bauman MD HEMATOLOGY ORDERABLE S Performing Organization Address [facility] de Phone Number [facility] * LDL Cholesterol, Direct (01/06/2014 11:30 AM EDT) LDL Cholesterol, Direct 13 <=99 mg/dL [facility] Comment: The National Cholesterol Education Program (NCEP) has set the following guidelines for LDL Cholesterol: Reference range: ?? Optimal: ?<100 mg/dL ?? Near Optimal/Above Optimal: ?? 100-129 mg/dL ?? Borderline high: ?130-159 mg/dL ?? High: ? 160-189 mg/dL ?? Very high: ?>rj=703 mg/dL TATI 2001: 285(19):5010-8528 Blood specimen (specimen) 01/06/2014 11:30 AM EDT 01/06/2014 11:45 AM EDT Narrative Resulting Agency Comment Spec In Lab Kenia Bauman MD CHEMISTRY ORDERABLES Performing Organization Address [facility] de Phone Number [facility] * Echocardiogram Transthoracic(Leb) (01/06/2014 10:29 AM EDT) EF 56 [facility] SYSTEM Anatomical Region Laterality Modality Other 01/06/2014 Narrative 01/06/2014 10:41 AM EDT Procedure: ? Transthoracic Echocardiogram Patient: ? PAMELA CHRISTIE P ? (Age): 1950(63) Med Rec#: ?[id number] ? Sex: ?M ? Site Loc: ?[facility] ? Ht / Wt: ??185(cm)/92(kg) Pt. Loc: ? CCU ?BSA: ?2 Study Date: ?01/06/2014 ? Pt. Type: Inpatient Tape: ? Referring: Kenia Bauman ([id number]) Referring: BRUCE Ink Technician: Jodie Givens Diagnosis:CPT Code(s): ??Echo Full (42822), ??Spectral Doppler (78791), Color Doppler (75993), Indication(s): ??Tachycardia Rhythm: HR ?BP ?114/63 ?? [...] ? Mid-Inferior ?Normal ? Mid-Inferoseptal ?Normal ? [place]-Septal ? Normal ? [place]-Anterior ? Normal ? [place]-Lateral ?Normal ? [place]-Inferior ? Normal ? [place]-Tip ?Normal ? Chambers ?Value ?Units (Range) ? [...] 01/06/2014 10:41:12 Images reviewed and interpretation verified [facility] Cardiac Ultrasound Laboratory Procedure Note Warren Atkinson MD - 01/06/2014 Procedure: Transthoracic Echocardiogram Patient: PAMELA Gordon (Age): 1950(63) Med Rec#: [id number] Sex: M Site Loc: [facility] Ht / Wt: 185(cm)/92(kg) Pt. Loc: CCU BSA: 2.17 Study Date: 01/06/2014 Pt. Type: Inpatient Tape: Referring: Kenia Bauman ([id number]) Referring: BRUCE Ink Technician: Jodie Givens Diagnosis:CPT Code(s): Echo Full (08241), Spectral Doppler (82097), Color Doppler (88248), Indication(s): Tachycardia Rhythm: HR BP 114/63 SUMMARY: [...] Normal Mid-Posterolateral Normal Mid-Inferior Normal Mid-Inferoseptal Normal [place]-Septal Normal [place]-Anterior Normal [place]-Lateral Normal [place]-Inferior Normal [place]-Tip Normal Chambers Value Units (Range) EF Bi-p [...] 01/06/2014 10:41:12 Images reviewed and interpretation verified [facility] Cardiac Ultrasound Laboratory Kenia Bauman MD ECHO ORDERABLES * EKG 12 Lead (01/06/2014 9:29 AM EDT) Ventricular rate 61 BPM MUSE SYSTEM Atrial Rate 61 BPM MUSE SYSTEM P-R Interval 210 ms MUSE SYSTEM QRS Duration 128 ms MUSE SYSTEM Q-T Interval 450 ms MUSE SYSTEM QTC Calculated (Bezet) 453 ms MUSE SYSTEM Calculated P [place] 36 degrees MUSE SYSTEM Calculated R [place] -51 degrees MUSE SYSTEM Calculated T [place] -62 degrees MUSE SYSTEM INTERPRETATION Sinus rhythm [...] Glucose, POC 104 60 - 199 mg/dL [facility] Comment: Supplemental ranges: <140 mg/dL before meals <180 mg/dL all other times of the day Blood specimen (specimen) 01/06/2014 8:28 AM EDT 01/06/2014 8:28 AM EDT Kenia Bauman MD POINT OF CARE TEST O RDERABLES Performing Organization Address City/[facility]/ZIP Co de Phone Number [employer] * XR chest routine PA & lateral [...] AM EDT) Creatinine, Urine 167 mg/dL CERNER [place] [facility] [place] Urine specimen (specimen) 01/06/2014 3:06 AM EDT 01/06/2014 3:15 AM EDT Narrative Resulting Agency Comment Spec In Lab Kenia Bauman MD URINE ORDERABLES Performing Organization Address [facility] Co de Phone Number [facility] [employer] * Sodium, urine, random (01/06/2014 3:06 AM EDT) Sodium, Urine 85 mmol/L [facility] [place] Urine specimen (specimen) 01/06/2014 3:06 AM EDT 01/06/2014 3:15 AM EDT Narrative Resulting Agency Comment Spec In Lab Kenia Bauman MD URINE ORDERABLES [facility] [employer] * (ABNORMAL) Urinalysis with microscopic (01/06/2014 3:06 [...] Urine Dipstick Hazy(A) Clear CERNER MILLENNIUM Specific [place] Urine Automated 1.019 1.002 - 1.030 CERNER [...] Cardiac Enzymes (01/06/2014 2:50 AM EDT) Pathologist [facility] Troponin-T 0.05(H) <=0.03 ng/mL CERNER MILLENNIUM Comment: [...] consensus document of the Joint Society of Cardiology/[place] College of Cardiology Committee for the redefinition of myocardial infarction. ??Journal of the [place] College of Cardiology 2000; 36: 959-969] Creatine Kinase 101 0 - 200 unit/L CERNER MILLENNIUM Blood specimen (specimen) 01/06/2014 2:50 AM EDT 01/06/2014 2:59 AM EDT Narrative Resulting Agency Comment Spec In Lab Kenia Bauman MD CHEMISTRY ORDERABLES MONICA ROSEENNIUM * (ABNORMAL) Differential, Automated (01/06/2014 2:50 AM [...] Lab Kenia Bauman MD HEMATOLOGY ORDERABLE S [facility] [place] * (ABNORMAL) Hemogram (01/06/2014 2:50 AM EDT) [...] EDT) Magnesium 0.67(L) 0.69 - 1.07 mmol/L [facility] MILLENNIUM Blood specimen (specimen) 01/06/2014 2:50 AM EDT 01/06/2014 2:58 AM EDT Narrative Resulting Agency Comment Spec In Lab Kenia Bauman MD CHEMISTRY ORDERABLES Performing Organization Address [facility] Co de Phone Number CERNER [place] * (ABNORMAL) Lipid panel (fasting) (01/06/2014 2:50 AM EDT) Cholesterol, Total 55 <=199 mg/dL CERNER MILLENNIUM Comment: Recommendations of the NCEP Adult Treatment Panel for the following risk cutoff thresholds for the [place] population: Desirable: <200 mg/dL Borderline High: 200-239 mg/dL High: > or = 240 mg/dL Triglyceride 148 <=149 mg/dL [facility] Comment: Reference Range: Normal triglycerides: ??<150 mg/dL Borderline high: ??150-199 mg/dL High: ??200-499 mg/dL Very high: ??>ow=839 mg/dL TATI 2001; 285(19):8548-5745 HDL Cholesterol 26(L) >=40 mg/dL CER NER MILLENNIUM Comment: Reference range: ??Low HDL: ?? < 40 mg/dL ??Normal: ?40-60 mg/dL ??Desirable: > 60 mg/dL TATI 2001; 285(19):7533-4508 LDL Cholesterol -1 <=99 mg/dL CER NER MILLENNIUM Comment: Reference range: ?? Optimal: ?<100 mg/dL ?? Near Optimal/Above Optimal: ?? 100-129 mg/dL ?? Borderline high: ?130-159 mg/dL ?? High: ? 160-189 mg/dL ?? Very high: ?>ck=590 mg/dL TATI 2001: 285(19):5779-6236 Cholesterol/HDL Ratio 2.1 ratio CERNER MILLENNIUM Comment: A Cholesterol to HDL ratio below 4:1 is desirable. ??Studies suggest that increased CAD risk occurs at ratios above 5 for females and above 6 for men. ? [place] Heart Association ??(http://www.americanheart.org) ? Yenny Int Med, 1994; 121:641 ? AM J Med, 1998; 105(1A):48S Blood specimen (specimen) 01/06/2014 2:50 AM EDT 01/06/2014 2:58 AM EDT Narrative Resulting Agency Comment Spec In Lab Kenia Bauman MD CHEMISTRY ORDERABLES [facility] * (ABNORMAL) Basic Metabolic Panel (non-fasting) (01/06/2014 2:50 AM EDT) [facility] Glucose 107 60 - 199 mg/dL CERNER MILLENNIUM Comment:Diabetes: >=200 mg/d L plus symptoms Blood Urea Nitrogen 31(H) 10 - 20 mg/dL CERNER MILLENNIUM Creatinine 1.41 0.80 - 1.50 mg/dL CERNER MILLENNIUM Comment: Please note that the pediatric reference intervals supplied above were not validated at [facility]. Results from pediatric patients [...] the following links into your internet browser. [email or web address] Blood specimen (specimen) 01/06/2014 2:50 AM EDT [...] (Bezet) 445 ms MUSE SYSTEM Calculated P [place] 18 degrees MUSE SYSTEM Calculated R [place] -55 degrees MUSE SYSTEM Calculated T [place] -70 degrees MUSE SYSTEM INTERPRETATION Sinus rhythm with 1st degree A-V block Left anterior fascicular block Non-specific intra-ventricula r conduction block T wave abnormality, consider inferior ischemia T wave abnormality, consider anterolateral ischemia Abnormal ECG Confirmed by MD William, Navid ([id number]) on 01/07/2014 4:01:06 PM MUSE SYSTEM 01/06/2014 2:01 AM EDT 01/07/2014 4:01 PM EDT Unknown ECG ORDERABLES MONDAMIN SYSTEM documented in this encounter Visit Diagnoses [...] to induce or maintain moderate sedation per [facility] Moderate Sedation Protocol, Not to exceed 50 [...] to induce or maintain moderate sedation per [facility] Moderate Sedation Protocol, Not to exceed 50 [...] than 145 sec times 2 - call retail warehouse supervisor See Bolus dosing guidance for aPTT [...] to induce or maintain moderate sedation per [facility] Moderate Sedation Protocol, Not to exceed 1 [...] to induce or maintain moderate sedation per [facility] Moderate Sedation Protocol, Not to exceed 1 [...] Unit), Indication for (Active or Suspected): Prophylaxis 210 (Given - Provider: Yamile Raya, RN) 0558 [...] to induce or maintain moderate sedation per [facility] Moderate Sedation Protocol, Not to exceed 50 [...] to induce or maintain moderate sedation per [facility] Moderate Sedation Protocol, Not to exceed 1 [...] RN) documented in this encounter Care Teams Fire Department Marine Engineer Relationship Specialty Start Date End Date Jennifer Haro MD PCP - General 01/07/12 01/30/14 documented as of this encounter
--- OUTSIDE RECORDS SUMMARY | 2024-05-09 16:25 | XMS_ITS | Encounter Summary ---
Author Organization [facility] [place] [address] Care Team Providers Care Marketing Support Specialist Name Role Phone Dewayne Mcdermott MD Primary Care Provider Unavaila ble Reason for Visit * Reason Comments Follow-up Encounter Details Date Type Department Care Team (Late st Contact Info) Description 06/17/2013 1:15 PM EST Office Visit Dermatology at [address] [phone] Adis Gonzalez MD [address] [place] [address], [facility] [address] Dermatitis (Primary Dx) Social History Tobacco Use [...] PM EST Problem: Followup pressure dermatitis, buttocks. Ptao follows up and is doing much better. Physical examination reveals that things have largely healed. The irritant dermatitis on the buttocks with crusting and scabbing has largely resolved. Assessment and Plan: 1. Pressure dermatitis, buttocks. a. Continue using zinc oxide ointment p.r.n. for involvement in this area. b. Patient is about to begin cardiac rehab at [facility], and I think this activity, getting [...] AM EST Hospital Encounter [place] [address] Arrived documented as of this encounter Visit Diagnoses Diagnosis Dermatitis- Primary Contact dermatitis and other eczema, due to unspecified cause documented in this encounter Care Teams Marketing Support Specialist Relationship Specialty Start Date End Date Dewayne Mcdermott MD PCP - General 01/07/12 01/30/14 documented as of this encounter
--- OUTSIDE RECORDS SUMMARY | 2024-05-09 16:25 | XMS_ITS | Encounter Summary ---
[facility] Organization [facility] [place] [address] Care Team Providers Care Assembler Crimper Name Role Phone Jennifer Haro MD Primary Care Provider Court uribe Encounter Details Date Type Department Care Team (Late st Contact Info) Description 01/06/2014 1:30 PM EDT - 01/06/2014 2:30 PM [place] [id number] Jaron Jarquin II, MD CARDIAC CATHETERIZATION Social [...] a 91 day new device check at [facility] EP Device Clinic. 4. Transtelephonic [...] 8:10 AM Kit Self MD Le Cardio [facility] Follow-Up Appointments Date and Time Provider and Specialty Location Jan 13, 2014 @ 2:[address] [facility] Doctor: Kenia Bauman MD Your Primary Care Provider: JENNIFER HARO MD [phone] For questions regarding this document or issues relating to this hospitalization on the Medical Service, please contact your inpatient physician through the [facility] Power Plant Electrician . Issues afterhours and on weekends will [...] times daily. 90 tablet 6 05/14/2013 01/27/2017 [place]-3 Fatty Acids (FISH OIL) 500 mg Cap Take by mouth daily. 01/14/2016 lamotrigine (LAMICTAL) 100 mg tablet Take 200 mg by mouth daily. 09/01/2018 alprazolam (XANAX XR) 3 mg 24 hr tablet Take 3 mg by mouth nightly. 09/18/2020 [facility] cmb #1-[id number]-yublhmgsni (PROBIOTIC & ACIDOPHILUS) 300-250 million cell-mg Cap [...] answered at this time. Patient discharged to [facility] with Daughter in stable condition. Wheelchair offered; patient elected to walk. * Edy Torres PA - 01/11/2014 12:10 PM EDT Patient Name: Shahnaz Santiago Patient Age: 63 y.o. Birthdate: 1950 Admit date: 01/06/2014 Attending Physician: Kenia Bauman MD Cardiac Electrophysiology Post-Iimplant Device Interrogation Note Shahnaz Santiago is a 63 y.o. male is POD # 1 following implant of a dual chamber, [employer] ICD for sustained ventricular tachycardia. He [...] in situ V45.02 Device data: Ventricular electrode: [employer] [place] Model# 0292 Serial# [id number] Bipolar, steroid-tipped, active-fixation, single coil DF-4 lead Access: Left axillary vein Location: RV apex R wave, ICD: 9.6 mV Pacing threshold, ICD: 0.6 V at 0.5 ms Impedance, ICD: 913 ohms (74 ohms for shock vector) Pace the diaphragm at 10 V: No Atrial electrode: [employer] Dextrus Model# 4136 Serial# [id number] Bipolar, steroid-tipped, active-fixation IS-1 lead Access: Left axillary vein Location Right atrial appendage P wave, ICD: 4.3 mV Pacing threshold, pacemaker: 1.7 V at 0.5 ms Impedance, pacemaker: 538 ohms Pace the diaphragm at 10 V: No Pulse generator: [employer] Incepta Model# E162 Serial# [id number] DDDR ICD Location: Subcutaneous Defibrillation testing was [...] ~ 91 days. Provider: MAXIMO Leija Provider#: [id number] Consult attending physician: Estefanía Cross MD * Raul Salmeron RN - 01/11/2014 8:04 AM EDT Inpatient Post ICD Implant Teaching Note Verbal teaching was performed today ebky-hr-[id number] with the patient including the following: -Brief generalized teaching of how ICDs function, and the patient's specific indication for ICD implant -Activity restrictions post ICD implant -Remote monitoring of the ICD via telephone (patient was given [facility] Latitude communicator today). -ICD insertion site wound [...] ICD placement today. Pt is insured with [employer]. No discharge needs identified at this time. Will continue to follow for coordination of care and discharge planning. Nora Schaeffer CAMPUS RECRUITING INTERN CRC/Stacy Pabon MSN BSN RN [facility] Office of Care Managment Pager [phone] * Yamile Raya RN - 01/10/2014 6:30 [...] One episode 7 beat run VT ~150bpm. [place] warm, needed to urinate during that time. [...] Labs Recent Labs Basename 01/10/14 0421 01/09/14 04301/08/14 0703 WBC 8.8 8.0 7.5 HGB [...] of report for additional findings. Cardiac Catheterization: 9/19 Cath today: PCI not indicated (stents patent). [...] Q6H JULIET Continuous Infusions: ??? bivalirudin Stopped (01/06/146) ??? adenosine Stopped (01/06/145) PRN Meds:.potassium chloride, potassium chloride, ALPRAZolam, cyclobenzaprine, [...] 2 minute sustained run of a junctional joão, notified and ECG strips monitored. Pt asymptomatic, [...] focal deficit Labs Recent Labs Basename 01/08/14 0701/07/14 03401/06/14 0250 WBC 7.5 8.9 11.0* HGB 11.8* 11.4* 13.0* HCT 35.5* 34.5* 39.2* PLATELET 143* 137* 152 Recent Labs Basename 01/08/14 0701/07/1499901/07/14 0340 01/06/14 0250 NA 140 -- 140 140 K 3.9 4.3 3.4* -- CL 103 -- 103 102 CO2 24 -- 26 25 BUN 16 -- 20 31* CREATININE 0.74* -- 0.81 1.41 No results found for this basename: AST:3,ALT:3,ALKPHOS:3,BILITOT:3,BILIDIR:3 in the last 168 hours Recent Labs Basename 01/08/14 0701/07/1401/07/14 0340 01/06/14 0250 CALCIUM 9.1 -- 8.8 [...] in to convince him not to leave [facility] without an ICD. Will await [...] Jennifer Harris - 01/06/2014 4:24 PM EDT Order Checker Packer Processer Encounter Note Patient Name: Shahnaz Santiago : [id number] MR#: [id number] Admit Date: 01/06/2014 1:50 AM Hospital Day 0 days Narrative: Shahnaz was happy and open to tool engineer visit. Assessment: We had a long conversation of what he considered that has been militating against a health life-style: smoking. Moreover he was not a pentecostal person based on his experiences over the years yet accepts prayers. Intervention and Outcome: We prayed for God's healing & strength. Follow-up: Yes Time in Direct Care: 35 mins Jennifer Whitmanlucie 01/06/2014 * Stacy Pabon RN - 01/06/2014 2:17 PM EDT Office of Care Management Clinical Video Operator Patient Name: Shahnaz Santiago : 1950, 63 yrs Admission Date: 01/06/2014 1:50 AM Attending: Kenia Bauman MD Order to Admit: Signed Record reviewed and patient discussed with multidisciplinary team. Lives in [place], [place] 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 He is independent and drives. Insurance: No Insurance. (Guillermo Galen FOURCHETTE SEWER notified) [facility] in [facility] Medical/Surgical:63 yo man with ASCVD s/p [...] Pabon MSN RN Clinical Resource Coordinators Phone: [phone] Pager [phone] documented in this encounter H&P Notes * Edy Berry MD - 01/07/2014 5:02 PM EDT Inpatient Cardiac Electrophysiology Follow-up Note Date of Consultation: 01/07/2014 Admit Date: 01/06/2014 Place of Service: Inpatient Unit Reason for Consult: We are seeing Shahnaz Santiago for the evaluation of ventricular tachycardia Patient Active Problem List Diagnosis ??? ASCVD (arteriosclerotic cardiovascular disease) Overview Note: ?? Heart catheterization in [facility] in 2007 with placement of a stent in an unspecified vessel ?? Repeat heart catheterization in 2008 with placement of stents to both the LAD and circumflex ?? Followup heart catheterization in 2008 showing stable results in both vessels ?? Her current chest discomfort in a somewhat atypical pattern beginning fall ?? Nuclear stress test at [facility] [place] [facility] in [place], [place] May 02, 2013 during which he developed left shoulder and arm discomfort during submaximal exercise on the treadmill and after which he was converted to a pharmacologic test; nuclear imaging showed ejection fraction of 45% with a partially reversible inferior defect ?? Cath [facility] 05/13/2013: normal left main, [...] On 01/04, he was walking in the [facility] when he developed sudden onset shortness of breath, which made him feel wobbly. He denied chest pain, palpitations (except for unusual pulsing in right ear lobe), or syncope though he felt weak and near-syncopal with exertion intermittently. His dyspnea remained present when he awoke the next morning, and he went to [facility], where ECG showed VT. He was cardioverted with return to NSR with 1st degree AVB, sub-mm STD in the lateral leads. His troponin was indeterminate. The patient was transferred to the [facility], where he has remained [...] mg by mouth 2 times daily. ??? [place]-3 Fatty Acids (FISH OIL) 500 mg Cap Take by mouth daily. ??? multivitamin capsule Take 1 capsule by mouth daily. ??? LANCETS MISC by Misc.(Non-Drug; Combo Route) route. ??? lamotrigine (LAMICTAL) 100 mg tablet Take 100 mg by mouth daily. ??? alprazolam (XANAX XR) 3 mg 24 hr tablet Take 3 mg by mouth every morning. ? ? lactobac cmb #8-cqr-czieuyyrhk (PROBIOTIC & ACIDOPHILUS) 300-250 million cell- mg [...] had PVD. Social History: , lives in [place] 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 Heart catheterization in [facility] in 2007 with placement of a stent in an unspecified vessel ?? Repeat heart catheterization in 2008 with placement of stents to both the LAD and circumflex ?? Followup heart catheterization in 2008 showing stable results in both vessels ?? Her current chest discomfort in a somewhat atypical pattern beginning fall ?? Nuclear stress test at [facility] [place] [facility] in [place], [place] May 02, 2013 during which he developed left shoulder and arm discomfort during submaximal exercise on the treadmill and after which he was converted to a pharmacologic test; nuclear imaging showed ejection fraction of 45% with a partially reversible inferior defect ?? Cath [facility] 05/13/2013: normal left main, [...] the next morning, and he went to [facility], where ECG showed VT. He was cardioverted with return to NSR with 1st degree AVB, sub-mm STD in the lateral leads. His troponin was indeterminate. The patient was transferred to the [facility], where he has remained [...] mg by mouth 2 times daily. ??? [place]-3 Fatty Acids (FISH OIL) 500 mg Cap Take by mouth daily. ??? multivitamin capsule Take 1 capsule by mouth daily. ??? LANCETS MISC by Misc.(Non-Drug; Combo Route) route. ??? lamotrigine (LAMICTAL) 100 mg tablet Take 100 mg by mouth daily. ??? alprazolam (XANAX XR) 3 mg 24 hr tablet Take 3 mg by mouth every morning. ? ? lactobac cmb #8-lag-itaknmqffk (PROBIOTIC & ACIDOPHILUS) 300-250 million cell- mg [...] had PVD. Social History: , lives in [place] 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 He should ideally check pulse for any recurrent symptoms of VT (e.g. Weakness, SOB) and not delay hospital presentation as he did this time. Will discuss more with him in AM. * Kenia Bauman MD - 01/06/2014 2:45 AM EDT Cardiology Admission History and Physical Patient Name: Shahnaz Santiago Service: [address] Responsible Attending: Kenia Bauman MD, MD PCP: JENNIFER HARO MD PCP phone #: [phone] ID/Chief Complaint: 63 yo man with ASCVD [...] a chronic, has beenaffecting him 20 years, lhrrlxqdx-fk-ymagdsqycq, sternally located discomfort that is constant and [...] change from his baseline he went to [facility] ED for evaluation.There he was found [...] =indeterminate). The patient was then transferred to [facility]. , OSH labs prior to [...] (arteriosclerotic cardiovascular disease) ?? Heart catheterization in [facility] in 2007 with placement of a stent in an unspecified vessel ?? Repeat heart catheterization in 2008 with placement of stents to both the LAD and circumflex ?? Followup heart catheterization in 2008 showing stable results in both vessels ?? Her current chest discomfort in a somewhat atypical pattern beginning fall ?? Nuclear stress test at [facility] [place] [facility] in [place], [place] May 02, 2013 during which he developed left shoulder and arm discomfort during submaximal exercise on the treadmill and after which he was converted to a pharmacologic test; nuclear imaging showed ejection fraction of 45% with a partially reversible inferior defect ?? Cath [facility] 05/13/2013: normal left main, [...] Cap Take by mouth daily. Generic drug: [place]-3 Fatty Acids Refills: 0 glipiZIDE 5 mg [...] by mouth daily. Generic drug: lactobac cmb #5-hnz-tfrtvywfli Refills: 0 rosuvastatin 20 mg Tab Commonly [...] ischemia Kalyan Babb, PGY-2 Team Pager # [phone] Cardiology Attending Addendum I have interviewed and [...] 01/12/2014 11:50 AM EDTAssociated Order(s): SCAN DOC: MAIL ORDER SORTER documented in this encounter Miscellaneous Notes * [...] a chronic, has beenaffecting him 20 years, vxzvoybqj-ms-zrrokrltkx, sternally located discomfort that is constant and [...] change from his baseline he went to [facility] ED for evaluation.There he was found [...] =indeterminate). The patient was then transferred to [facility]. 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 A consult to smoking cessation was placed [...] no pre-excitation or conduction aberrancy identified. The ehtwvvxv-qj-DSK < QRS-QRS just prior to the observed [...] Cap Take by mouth daily. Generic drug: [place]-3 Fatty Acids Refills: 0 glipiZIDE 5 mg [...] by mouth daily. Generic drug: lactobac cmb #6-jgq-ylunjhhbwy Refills: 0 rosuvastatin 20 mg Tab Commonly [...] 8:10 AM Kit Self MD Leb Cardio [facility] Follow-Up Appointments Date and Time Provider and Specialty Location Jan 13, 2014 @ 2:[address] [facility] Inpatient Doctor: Kenia Bauman MD Your Primary Care Provider: JENNIFER HARO MD [phone] For questions regarding this document or issues relating to this hospitalization on the Medical Service, please contact your inpatient physician through the [facility] Power Plant Electrician . Issues afterhours and on weekends will be handled by the Hospitalist staff on-call. Future Appointments and Orders Future Appointments: Provider: Department: Dept Phone: Center: 02/07/2014 8:10 AM Kit Self MD Cardiology [phone] [facility] Joint Appt Nurse One Cardiology Intake, NAHUN MOTLEY [phone] [facility] 04/10/2014 9:30 AM Raul Salmeron RN Cardiology [phone] [facility] For questions regarding this document or issues relating to this hospitalization on the Medical Service, please contact your inpatient physician through the [facility] Power Plant Electrician . Issues afterhours and on weekends will be handled by the Garment Sorter staff on-call. Signed: KENIA BAUMAN MD * [...] the out pt CR program at [facility]. He was admitted with LLOYD and VT. Cardiac cath showed no ischemic etiology of sx. Being considered for ICD. Will refer him back to the [facility] prog at discharge * Miscellaneous - Provider, Skyler - 01/07/2014 2:41 PM EDT * Op Note - José Manuel Cole MD - 01/06/2014 5:34 PM EDT Electrophysiology Study Power Plant Electrician: José Manuel Cole MD Indication: Ventricular tachycardia [...] no pre-excitation or conduction aberrancy identified. The wfklczju-jq-TNE < QRS-QRS just prior to the observed [...] AM EST Hospital Encounter [place] [address] Arrived documented as of this encounter Procedures Procedure Name Priority Date/Time Associated Diagnosis Comments MAIL ORDER SORTER SCAN 01/12/2014 11:50 AM EDT POCT GLUCOSE [...] Routine 01/07/20 3:58 PM EDT CARDIAC ENZYMES ([facility]) Routine 01/06/2014 12:40 PM EDT POCT GLUCOSE Routine 01/06/2014 12:15 PM EDT CARDIAC ENZYMES ([facility]) Routine 01/06/2014 11:30 AM EDT APTT STAT 01/06/2014 11:30 AM EDT LDL CHOLESTEROL, DIRECT Routine 01/07/20 11:30 AM EDT ECHOCARDIOGRAM TRANSTHORACIC Routine 01/06/2014 [...] in this encounter Results * SCAN DOC: MAIL ORDER SORTER (01/12/2014 11:50 AM EDT) Anatomical Region Laterality [...] MD HEMATOLOGY ORDERABLE S Performing Organization Address City/[facility]/ZIP Co de Phone Number [facility]DE[facility] ROSEEN[facility] * [...] intervals supplied above were not validated at [facility]. Results from pediatric patients should [...] the following links into your internet browser. [email or web address] Blood specimen (specimen) 01/11/2014 3:56 AM EDT 01/11/2014 4:21 AM EDT Narrative Resulting Agency Comment Spec In Lab Kenia Bauman MD CHEMISTRY ORDERABLES Performing Organization Address [facility] de Phone Number [facility] * POCT Glucose (01/11/2014 3:46 AM EDT) Glucose, POC 137 60 - 199 mg/dL [facility] Comment: Supplemental ranges: <140 mg/dL before meals <180 mg/dL all other times of the day Blood specimen (specimen) 01/11/2014 3:46 AM EDT 01/11/2014 3:46 AM EDT Kenia Bauman MD POINT OF CARE TEST O RDERABLES Performing Organization Address [facility] Phone Number [facility] * POCT Glucose (01/10/2014 11:57 PM EDT) Glucose, POC 173 60 - 199 mg/dL [facility] Comment: Supplemental ranges: <140 mg/dL before meals <180 mg/dL all other times of the day Blood specimen (specimen) 01/10/2014 11:57 PM EDT 01/10/2014 11:57 PM EDT Kenia Bauman MD POINT OF CARE TEST O RDERABLES Performing Organization Address [facility] de Phone Number [facility] * (ABNORMAL) POCT Glucose (01/10/2014 8:31 PM EDT) Glucose, POC 201(H) 60 - 199 mg/dL [facility] Comment: Supplemental ranges: <140 mg/dL before meals <180 mg/dL all other times of the day Blood specimen (specimen) 01/10/2014 8:31 PM EDT 01/10/2014 8:31 PM EDT Kenia Bauman MD POINT OF CARE TEST O RDERALOREE Performing Organization Address City/[facility] Co de Phone Number [facility] * POCT Glucose (01/10/2014 6:04 PM EDT) Glucose, POC 164 60 - 199 mg/dL [facility] Comment: Supplemental ranges: <140 mg/dL before meals <180 mg/dL all other times of the day Blood specimen (specimen) 01/10/2014 6:04 PM EDT 01/10/2014 6:04 PM EDT Kenia Bauman MD POINT OF CARE TEST O ASIMLOREE Performing Organization Address [facility] Co de Phone Number [facility] * Electrophysiology Procedure (01/10/2014 [...] with O-silk. Final Parameters: Ventricular electrode: ?? [employer] [place] Model# 0292 Serial# [id number] ??Bipolar, steroid-tipped, active-fixation, ??single coil DF-4 lead ??Access: ? Left axillary vein ??Location: ?RV apex ??R wave, ICD: ? 9.6 mV ??Pacing threshold, ICD: ? 0.6 V at 0.5 ms ??Impedance, ICD: ? 913 ohms (74 ohms for shock vector) ??Pace the diaphragm at 10 V: ??No Atrial electrode: ?? [employer] Dextrus Model# 4136 Serial# [id number] ??Bipolar, steroid-tipped, active-fixation IS-1 lead ??Access: ? Left axillary vein ??Location ? Right atrial appendage ??P wave, ICD: ? 4.3 mV ??Pacing threshold, pacemaker: ??1.7 V at 0.5 ms ??Impedance, pacemaker: ??538 ohms ??Pace the diaphragm at 10 V: ??No Pulse generator: ? [employer] Incepta Model# E162 Serial# [id number] DDDR ICD ??Location: ?Subcutaneous Defibrillation testing was [...] major muscle withO-silk. Final Parameters: Ventricular electrode: [employer] [place] Model# 0292 Serial# [id number] Bipolar, steroid-tipped, active-fixation, single coil DF-4 lead Access: Left axillary vein Location: RV apex R wave, ICD: 9.6 mV Pacing threshold, ICD: 0.6 V at 0.5 ms Impedance, ICD: 913 ohms (74 ohms for shock vector) Pace the diaphragm at 10 V: No Atrial electrode: [employer] Dextrus Model# 4136 Serial# [id number] Bipolar, steroid-tipped, active-fixation IS-1 lead Access: Left axillary vein Location Right atrial appendage P wave, ICD: 4.3 mV Pacing threshold, pacemaker: 1.7 V at 0.5 ms Impedance, pacemaker: 538 ohms Pace the diaphragm at 10 V: No Pulse generator: [employer] Incepta Model# E162 Serial# [id number] DDDR ICD Location: Subcutaneous Defibrillation testing was [...] (ABNORMAL) POCT Glucose (01/10/2014 11:39 AM EDT) [facility] Glucose, POC 218(H) 60 - 199 mg/dL [facility] Comment: Supplemental ranges: <140 mg/dL before meals <180 mg/dL all other times of the day Blood specimen (specimen) 01/10/2014 11:39 AM EDT 01/10/2014 11:39 AM EDT Kenia Bauman MD POINT OF CARE TEST O RDERABLES [facility] * (ABNORMAL) POCT Glucose (01/10/2014 7:36 AM EDT) Glucose, POC 242(H) 60 - 199 mg/dL [facility] Comment: Supplemental ranges: <140 mg/dL before meals <180 mg/dL all other times of the day Blood specimen (specimen) 01/10/2014 7:36 AM EDT 01/10/2014 7:36 AM EDT Kenia Bauman MD POINT OF CARE TEST O RDERABLES Performing Organization Address City/[facility] Co de Phone Number [facility] * POCT Glucose (01/10/2014 4:25 AM EDT) Glucose, POC 153 60 - 199 mg/dL [facility] Comment: Supplemental ranges: <140 mg/dL before meals <180 mg/dL all other times of the day Blood specimen (specimen) 01/10/2014 4:25 AM EDT 01/10/2014 4:25 AM EDT Kenia Bauman MD POINT OF CARE TEST O [place] Performing Organization Address City/[facility]/ZIP Co de Phone Number [facility] BENITEZIUM [...] Bauman MD CHEMISTRY ORDERABLES Performing Organization Address [facility] Co de Phone Number [facility] MILLENNIUM * Basic Metabolic Panel (non-fasting) (01/10/2014 4:21 AM EDT) Glucose 161 60 - 199 mg/dL [facility] Comment:Diabetes: >=200 mg/d L plus symptoms Blood Urea Nitrogen 17 10 - 20 mg/dL [facility] MILLENNIUM Creatinine 0.91 0.80 - 1.50 mg/dL [facility] M[facility]NI[facility] Comment: Please note that the pediatric reference intervals supplied above were not validated at [facility]. Results from pediatric patients should [...] the following links into your internet browser. [email or web address] Blood specimen (specimen) 01/10/2014 4:21 AM EDT 01/10/2014 4:36 AM EDT Narrative Resulting Agency Comment Spec In Lab Kenia Bauman MD CHEMISTRY ORDERABLES Performing Organization Address [facility] de Phone Number [facility] * POCT Glucose (01/09/2014 11:25 PM EDT) Glucose, POC 164 60 - 199 mg/dL [facility] Comment: Supplemental ranges: <140 mg/dL before meals <180 mg/dL all other times of the day Blood specimen (specimen) 01/09/2014 11:25 PM EDT 01/09/2014 11:25 PM EDT Kenia Bauamn MD POINT OF CARE TEST O RDERABLES Performing Organization Address [facility] de Phone Number [facility] [facility] * (ABNORMAL) POCT Glucose (01/09/2014 8:03 PM EDT) Glucose, POC 204(H) 60 - 199 mg/dL [facility] Comment: Supplemental ranges: <140 mg/dL before meals <180 mg/dL all other times of the day Blood specimen (specimen) 01/09/2014 8:03 PM EDT 01/09/2014 8:03 PM EDT Kenia Bauman MD POINT OF CARE TEST O RDERABLES Performing Organization Address [facility]/ZIP Co de Phone Number [facility] * (ABNORMAL) POCT Glucose (01/09/2014 4:34 PM EDT) Glucose, POC 231(H) 60 - 199 mg/dL [facility] Comment: Supplemental ranges: <140 mg/dL before meals <180 mg/dL all other times of the day Blood specimen (specimen) 01/09/2014 4:34 PM EDT 01/09/2014 4:34 PM EDT Kenia Bauman MD POINT OF CARE TEST O RDERALOREE Performing Organization Address [facility] Co de Phone Number [facility] * (ABNORMAL) POCT Glucose (01/09/2014 11:44 AM EDT) Glucose, POC 280(H) 60 - 199 mg/dL [facility] Comment: Supplemental ranges: <140 mg/dL before meals <180 mg/dL all other times of the day Blood specimen (specimen) 01/09/2014 11:44 AM EDT 01/09/2014 11:44 AM EDT Kenia Bauman MD POINT OF CARE TEST O RDERABLES Performing Organization Address [facility] Co de Phone Number [facility] * POCT Glucose (01/09/2014 7:51 AM EDT) Glucose, POC 148 60 - 199 mg/dL [facility] Comment: Supplemental ranges: <140 mg/dL before meals <180 mg/dL all other times of the day Blood specimen (specimen) 01/09/2014 7:51 AM EDT 01/09/2014 7:51 AM EDT Kenia Bauman MD POINT OF CARE TEST O RDERABLES Performing Organization Address [facility] Co de Phone Number [facility] * Basic Metabolic Panel (non-fasting) (01/09/2014 4:32 AM EDT) Glucose 124 60 - 199 mg/dL [facility] Comment:Diabetes: >=200 mg/d L plus symptoms Blood Urea Nitrogen 15 10 - 20 mg/dL [facility]ILLENNIUM Creatinine 0.87 0.80 - 1.50 mg/dL [facility] MILLENNIUM Comment: Please note that the pediatric reference intervals supplied above were not validated at [facility]. Results from pediatric patients should [...] the following links into your internet browser. [email or web address] Blood specimen (specimen) 01/09/2014 4:32 AM EDT [...] 51.0 % [facility] Mean Cell Volume 89.0 79.0 - 92.0 fL [facility] Mean Cell Hemoglobin 30.0 25.6 - 32.2 pg [facility] Mean Cell Hemoglobin Concentration 33.7 32.0 - 36.5 gm/dL [facility] Platelet 184 145 - 370 x10(3)/mc L [facility] RDW Standard Deviation 47.4(H) 35.0 - 46.0 fL [facility] RDW coefficient of variation 14.8(H) 10.9 - 14.4 % [facility] Mean Platelet Volume 10.3 9.0 - 12.0 fL [facility] Blood specimen (specimen) 01/09/2014 4:32 AM EDT 01/09/2014 4:38 AM EDT Narrative Resulting Agency Comment Spec In Lab Kenia Bauman MD HEMATOLOGY ORDERABLE S [facility] * Magnesium (01/09/2014 4:32 AM EDT) Magnesium 0.76 0.69 - 1.07 mmol/L [facility] Blood specimen (specimen) 01/09/2014 4:32 AM EDT 01/09/2014 4:38 AM EDT Narrative Resulting Agency Comment Spec In Lab Kenia Bauman MD CHEMISTRY ORDERABLES [facility] * POCT Glucose (01/09/2014 4:19 AM EDT) Glucose, POC 114 60 - 199 mg/dL [facility] Comment: Supplemental ranges: <140 mg/dL before meals <180 mg/dL all other times of the day Blood specimen (specimen) 01/09/2014 4:19 AM EDT 01/09/2014 4:19 AM EDT Kenia Bauman MD POINT OF CARE TEST O RDERABLES Performing Organization Address [facility] Co de Phone Number [facility] * POCT Glucose (01/09/2014 1:41 AM EDT) Glucose, POC 155 60 - 199 mg/dL [facility] Comment: Supplemental ranges: <140 mg/dL before meals <180 mg/dL all other times of the day Blood specimen (specimen) 01/09/2014 1:41 AM EDT 01/09/2014 1:41 AM EDT Kenia Bauman MD POINT OF CARE TEST O RDERABLES Performing Organization Address [facility] Co de Phone Number [facility] * (ABNORMAL) POCT Glucose (01/08/2014 11:19 PM EDT) Glucose, POC 252(H) 60 - 199 mg/dL [facility] Comment: Supplemental ranges: <140 mg/dL before meals <180 mg/dL all other times of the day Blood specimen (specimen) 01/08/2014 11:19 PM EDT 01/08/2014 11:19 PM EDT Kenia Bauman MD POINT OF CARE TEST O RDERABLES Performing Organization Address [facility] de Phone Number [facility] * (ABNORMAL) POCT Glucose (01/08/2014 7:50 PM EDT) Glucose, POC 205(H) 60 - 199 mg/dL [facility] Comment: Supplemental ranges: <140 mg/dL before meals <180 mg/dL all other times of the day Blood specimen (specimen) 01/08/2014 7:50 PM EDT 01/08/2014 7:50 PM EDT Kenia Bauman MD POINT OF CARE TEST O RDERABLES Performing Organization Address [facility] Co de Phone Number [facility] * POCT Glucose (01/08/2014 5:17 PM EDT) Glucose, POC 194 60 - 199 mg/dL [facility] MILLENNIUM Comment: Supplemental ranges: <140 mg/dL before meals <180 mg/dL all other times of the day Blood specimen (specimen) 01/08/2014 5:17 PM EDT 01/08/2014 5:17 PM EDT Kenia Bauman MD POINT OF CARE TEST O RDERABLES Performing Organization Address [facility] Co de Phone Number [facility]ENITE[facility] * (ABNORMAL) POCT Glucose (01/08/2014 2:21 PM EDT) Glucose, POC 230(H) 60 - 199 mg/dL [facility] Comment: Supplemental ranges: <140 mg/dL before meals <180 mg/dL all other times of the day Blood specimen (specimen) 01/08/2014 2:21 PM EDT 01/08/2014 2:21 PM EDT Kenia Bauman MD POINT OF CARE TEST O CARLOSERALOREE Performing Organization Address [facility] Co de Phone Number [facility] ROSEENNI[facility] * (ABNORMAL) POCT Glucose (01/08/2014 12:04 PM EDT) Glucose, POC 240(H) 60 - 199 mg/dL [facility] Comment: Supplemental ranges: <140 mg/dL before meals <180 mg/dL all other times of the day Blood specimen (specimen) 01/08/2014 12:04 PM EDT 01/08/2014 12:04 PM EDT Kenia Bauman MD POINT OF CARE TEST O RDERABLES Performing Organization Address [facility] Co de Phone Number [facility] ROSEENNIUM * POCT Glucose (01/08/2014 7:56 AM EDT) Glucose, POC 125 60 - 199 mg/dL [facility] Comment: Supplemental ranges: <140 mg/dL before meals [...] Bauman MD CHEMISTRY ORDERABLES Performing Organization Address [facility] Co de Phone Number CERDELMAR ROSEENNIUM [...] MD HEMATOLOGY ORDERABLE S Performing Organization Address City/[facility]/ZIP Co de Phone Number MONICA ROSEENNIUM [...] MD HEMATOLOGY ORDERABLE S Performing Organization Address City/[facility]/ZIP Co de Phone Number [facility] ROSEENNIUM * (ABNORMAL) Basic Metabolic Panel (non-fasting) (01/08/2014 7:03 AM EDT) Glucose 133 60 - 199 mg/dL [facility] Comment:Diabetes: >=200 mg/d L plus symptoms Blood Urea Nitrogen 16 10 - 20 mg/dL [facility] MILLENNIUM Creatinine 0.74(L) 0.80 - 1.50 mg/dL [facility] MILLENNI[facility] Comment: Please note that the pediatric reference intervals supplied above were not validated at [facility]. Results from pediatric patients should [...] the following links into your internet browser. [email or web address] Blood specimen (specimen) 01/08/2014 7:03 AM EDT 01/08/2014 7:08 AM EDT Narrative Resulting Agency Comment Spec In Lab Kenai Bauman MD CHEMISTRY ORDERABLES [facility] myinfoQIUM * (ABNORMAL) POCT Glucose (01/08/2014 3:55 AM EDT) Glucose, POC 219(H) 60 - 199 mg/dL [facility] Comment: Supplemental ranges: <140 mg/dL before meals <180 mg/dL all other times of the day Blood specimen (specimen) 01/08/2014 3:55 AM EDT 01/08/2014 3:55 AM EDT Kneia Bauman MD POINT OF CARE TEST O SAM[place] Performing Organization Address [facility] Co de Phone Number [facility] * POCT Glucose (01/07/2014 11:51 PM EDT) Glucose, POC 153 60 - 199 mg/dL [facility] Comment: Supplemental ranges: <140 mg/dL before meals <180 mg/dL all other times of the day Blood specimen (specimen) 01/07/2014 11:51 PM EDT 01/07/2014 11:51 PM EDT Kenia Bauman MD POINT OF CARE TEST O [place] Performing Organization Address [facility] Co de Phone Number [facility] * POCT Glucose (01/07/2014 9:32 PM EDT) Glucose, POC 190 60 - 199 mg/dL [facility] Comment: Supplemental ranges: <140 mg/dL before meals <180 mg/dL all other times of the day Blood specimen (specimen) 01/07/2014 9:32 PM EDT 01/07/2014 9:32 PM EDT Kenia Bauman MD POINT OF CARE TEST O CARLOSERALOREE Performing Organization Address [facility] Co de Phone Number [facility] * (ABNORMAL) POCT Glucose (01/07/2014 7:36 PM EDT) Glucose, POC 223(H) 60 - 199 mg/dL [facility] Comment: Supplemental ranges: <140 mg/dL before meals <180 mg/dL all other times of the day Blood specimen (specimen) 01/07/2014 7:36 PM EDT 01/07/2014 7:36 PM EDT Kenia Bauman MD POINT OF CARE TEST O RDERABLES Performing Organization Address [facility] de Phone Number [facility] * POCT Glucose (01/07/2014 5:32 PM EDT) Glucose, POC 180 60 - 199 mg/dL [facility] Comment: Supplemental ranges: <140 mg/dL before meals <180 mg/dL all other times of the day Blood specimen (specimen) 01/07/2014 5:32 PM EDT 01/07/2014 5:32 PM EDT Kenia Bauman MD POINT OF CARE TEST O RDERABLES Performing Organization Address [facility] Phone Number [facility] * (ABNORMAL) POCT Glucose (01/07/2014 1:24 PM EDT) Glucose, POC 240(H) 60 - 199 mg/dL [facility] Comment: Supplemental ranges: <140 mg/dL before meals <180 mg/dL all other times of the day Blood specimen (specimen) 01/07/2014 1:24 PM EDT 01/07/2014 1:24 PM EDT Kenia Bauman MD POINT OF CARE TEST O RDERABLES Performing Organization Address [facility] de Phone Number [facility] * (ABNORMAL) Magnesium (01/07/2014 10:00 AM EDT) Magnesium 0.66(L) 0.69 - 1.07 mmol/L [facility] Blood specimen (specimen) 01/07/2014 10:00 AM EDT 01/07/2014 10:17 AM EDT Narrative Resulting Agency Comment Spec In Lab Kenia Bauman MD CHEMISTRY ORDERABLES Performing Organization Address [facility] de Phone Number MONICA PERALTA * Potassium (01/07/2014 10:00 AM EDT) Pathologist [facility] [place] Potassium 4.3 3.5 - 5.0 mmol/L [facility] Comment: Please note: ??Patients with WBC [...] Bauman MD CHEMISTRY ORDERABLES Performing Organization Address [facility] de Phone Number MONICA PERALTA * POCT Glucose (01/07/2014 9:23 AM EDT) Pathologist [facility] [place] Glucose, POC 178 60 - 199 mg/dL [facility] Comment: Supplemental ranges: <140 mg/dL before meals <180 mg/dL all other times of the day Blood specimen (specimen) 01/07/2014 9:23 AM EDT 01/07/2014 9:23 AM EDT Kenia Bauman MD POINT OF CARE TEST O RDERABLES Performing Organization Address [facility] de Phone Number MONICA PERALTA * Differential, Automated (01/07/2014 3:40 AM EDT) Pathologist [facility] [place] Neutrophil % 60.4 34.0 - 71.0 % [facility] Neutrophil Absolute 5.37 1.50 - 6.30 [...] MD HEMATOLOGY ORDERABLE S Performing Organization Address [facility] de Phone Number [facility]NI[facility] * (ABNORMAL) Magnesium (01/07/2014 3:40 AM EDT) Magnesium 0.61(L) 0.69 - 1.07 mmol/L [facility] MILLENNIUM Blood specimen (specimen) 01/07/2014 3:40 AM EDT 01/07/2014 3:43 AM EDT Narrative Resulting Agency Comment Spec In Lab Kenia Bauman MD CHEMISTRY ORDERABLES Performing Organization Address [facility] de Phone Number [facility] MILLENNI[facility] * (ABNORMAL) Basic Metabolic Panel (non-fasting) (01/07/2014 3:40 AM EDT) Pathologist [facility] [place] Glucose 93 60 - 199 mg/dL [facility] MILLENNIUM Comment:Diabetes: >=200 mg/d L plus symptoms Blood Urea Nitrogen 20 10 - 20 mg/dL [facility] MILLENNIUM Creatinine 0.81 0.80 - 1.50 mg/dL [facility] MILLENNIUM Comment: Please note that the pediatric reference intervals supplied above were not validated at [facility]. Results from pediatric patients should [...] the following links into your internet browser. [email or web address] Blood specimen (specimen) 01/07/2014 3:40 AM EDT 01/07/2014 3:43 AM EDT Narrative Resulting Agency Comment Spec In Lab Kenia Bauman MD CHEMISTRY ORDERABLES Performing Organization Address [facility] Co de Phone Number [facility] * POCT Glucose (01/07/2014 3:39 AM EDT) Glucose, POC 95 60 - 199 mg/dL [facility] Comment: Supplemental ranges: <140 mg/dL before meals <180 mg/dL all other times of the day Blood specimen (specimen) 01/07/2014 3:39 AM EDT 01/07/2014 3:39 AM EDT Kenia Bauman MD POINT OF CARE TEST O RDERABLES Performing Organization Address [facility] Co de Phone Number [facility] * POCT Glucose (01/06/2014 11:40 PM EDT) Glucose, POC 130 60 - 199 mg/dL [facility] Comment: Supplemental ranges: <140 mg/dL before meals <180 mg/dL all other times of the day Blood specimen (specimen) 01/06/2014 11:40 PM EDT 01/06/2014 11:40 PM EDT Kenia Bauman MD POINT OF CARE TEST O RDERALOREE Performing Organization Address [facility] de Phone Number [facility] * POCT Glucose (01/06/2014 9:23 PM EDT) Glucose, POC 173 60 - 199 mg/dL [facility] Comment: Supplemental ranges: <140 mg/dL before meals <180 mg/dL all other times of the day Blood specimen (specimen) 01/06/2014 9:23 PM EDT 01/06/2014 9:23 PM EDT Kenia Bauman MD POINT OF CARE TEST O RDERALOREE Performing Organization Address [facility] de Phone Number [facility] * POCT Glucose (01/06/2014 6:42 PM EDT) Glucose, POC 125 60 - 199 mg/dL [facility] Comment: Supplemental ranges: <140 mg/dL before meals <180 mg/dL all other times of the day Blood specimen (specimen) 01/06/2014 6:42 PM EDT 01/06/2014 6:42 PM EDT Kenia Bauman MD POINT OF CARE TEST O [place] Performing Organization Address [facility] Phone Number [facility] * Electrophysiology Procedure (01/06/2014 5:20 PM [...] Modality Other Narrative 01/09/2014 7:14 AM EDT ?[facility] ? Cardiac Catheterization/Intervention Report ? Patient Name: Shahnaz Santiago ? Procedure Date: 01/06/2014 ? A #: [id number] ? Primary Physician: Jaron Jarquin ? Case #: [id number] ? File Name: [id number] ? Catheterization Order Number: [id number] ? [facility] ?[facility] ? Final Report [place], [place] ? Patient Name: ? Shahnaz Santiago ? ID#: ?[id number] ? : ?1950 ? Procedure Date: ? January 06, 2014 ? Case #: ? 14- [id number] ? Room: ? 1 ? Case Physician: ? Rj GaldamezD. ? Start: ?14:40 ?Fellow: ? Jennifer Argueta, ?Admission: ??01/06/2014 ?M.D. ? Referring Physician: ??Jennifer Haro M.D. ? Procedures: ?* Coronary Angiography ?* Left Heart Catheterization ?* Coronary Flow [place] Measurement ?* Coronary Instantaneous Wave-Free Ratio ?* Vascular Closure Device Deployment ?* Access Site Angiography ? History ?Shhanaz Santiago is a 63 year old man. [...] Jarquin, M.D. ? Electronically Signed by: Jaron Jarquin M.D. ? Report Finalized: 01/06/2014 ??16:11 ? Procedure Note Jaron Jarquin II, MD - 01/09/2014 [facility] Cardiac Catheterization/Intervention Report Patient Name: Shahnaz Santiago Procedure Date: 01/06/2014 A #: [id number] Primary Physician: Jaron Jarquin Case #: File Name: [id number] Catheterization Order Number: [id number] [facility] FinalReport [place], [place] Patient Name: Shahnaz Santiago ID#:[id number] :1950 Procedure Date: January 06, 2014 Case #: Room: 1 Case Physician: Jaron Jarquin M.D. Start: 14:40 Fellow: Jennifer Argueta, Admission:01/06/2014 Adriana Referring Physician: Jennifer Haro M.D. Procedures: * Coronary Angiography * Left Heart Catheterization * Coronary Flow [place] Measurement * Coronary Instantaneous Wave-Free Ratio * [...] # coronary, IFR-coronaryand vascular closure device. Jaron Jaqruin M.D. Electronically Signed by: Jaron Jarquin M.D. Report Finalized: 01/06/2014 16:11 Kenia Bauman MD CARDIAC CATH ORDERAB LES * (ABNORMAL) Cardiac Enzymes (01/06/2014 12:40 PM EDT) [facility] Troponin-T 0.10(H) <=0.03 ng/mL MONICA PERALTA [...] consensus document of the Joint Society of Cardiology/[place] College [employer] Committee for the redefinition of myocardial infarction. ??Journal of the [place] College [employer] 2000; 36: 959-969] Creatine Kinase 127 0 - 200 unit/L MONICA PERALTA Blood specimen (specimen) 01/06/2014 12:40 PM EDT 01/06/2014 12:52 PM EDT Narrative Resulting Agency Comment Spec In Lab Kenia Bauman MD CHEMISTRY ORDERABLES Performing Organization Address [facility] Co de Phone Number MONICA MILTONZINA * POCT Glucose (01/06/2014 12:15 PM EDT) [facility] Glucose, POC 165 60 - 199 mg/dL MONICA [facility]absZINA Comment: Supplemental ranges: <140 mg/dL before meals <180 mg/dL all other times of the day Blood specimen (specimen) 01/06/2014 12:15 PM EDT 01/06/2014 12:15 PM EDT Kenia Bauman MD POINT OF CARE TEST O RDERABLES [facility]TON[facility] * Cardiac Enzymes (01/06/2014 11:30 AM EDT) Troponin-T Not Perf <=0.03 ng/mL MONICA [facility]ZINA Comment: Unable to quantitate due to sample [...] consensus document of the Joint Society of Cardiology/[place] [employer]iology Committee for the redefinition of myocardial infarction. ??Journal of the [place] College of Cardiology 2000; 36: 959-969] Creatine Kinase 132 0 - 200 unit/L [facility] Blood specimen (specimen) 01/06/2014 11:30 AM EDT 01/06/2014 11:45 AM EDT Narrative Resulting Agency Comment Spec In Lab Kenia Bauman MD CHEMISTRY ORDERABLES Performing Organization Address City/[facility]/ZIP Co de Phone Number MONICA [employer] * (ABNORMAL) APTT (01/06/2014 11:30 AM EDT) Partial Thromboplastin Time 48(H) 25 - 35 sec MONICA PERALTA Comment: Recommended therapeutic PTT range for full dose unfractionated heparin is 80-114 seconds. Blood specimen (specimen) 01/06/2014 11:30 AM EDT 01/06/2014 11:45 AM EDT Narrative Resulting Agency Comment Spec In Lab Kenia Bauman MD HEMATOLOGY ORDERABLE S [facility] * LDL Cholesterol, Direct (01/06/2014 11:30 AM EDT) LDL Cholesterol, Direct 13 <=99 mg/dL [facility] Comment: The National Cholesterol Education Program (NCEP) has set the following guidelines for LDL Cholesterol: Reference range: ?? Optimal: ?<100 mg/dL ?? Near Optimal/Above Optimal: ?? 100-129 mg/dL ?? Borderline high: ?130-159 mg/dL ?? High: ? 160-189 mg/dL ?? Very high: ?>sb=095 mg/dL TATI 2001: 285(19):7475-1580 Blood specimen (specimen) 01/06/2014 11:30 AM EDT 01/06/2014 11:45 AM EDT Narrative Resulting Agency Comment Spec In Lab Kenia Bauman MD CHEMISTRY ORDERABLES Performing Organization Address City/State/[facility] Co de Phone Number [facility] * Echocardiogram Transthoracic(Leb) (01/06/2014 10:29 AM EDT) EF 56 [facility] Anatomical Region Laterality Modality Other 01/06/2014 Narrative 01/06/2014 10:41 AM EDT Procedure: ? Transthoracic Echocardiogram Patient: ? PAMELA Gordon ? (Age): 1950(63) Med Rec#: ?[id number] ? Sex: ?M ? Site Loc: ?[facility] ? Ht / Wt: ??185(cm)/92(kg) Pt. Loc: ? CCU ?BSA: ?2.17 Study Date: ?01/06/2014 ? Pt. Type: Inpatient Tape: ? Referring: Kenia Bauman ([id number]) Referring: BRUCE Wood Planer: Jodie Givens Diagnosis:CPT Code(s): ??Echo Full (53938), ??Spectral Doppler (44069), Color Doppler (23621), Indication(s): ??Tachycardia Rhythm: HR ?BP ?114/63 ?? [...] ? Mid-Inferior ?Normal ? Mid-Inferoseptal ?Normal ? [place]-Septal ? Normal ? [place]-Anterior ? Normal ? [place]-Lateral ?Normal ? [place]-Inferior ? Normal ? [place]-Tip ?Normal ? Chambers ?Value ?Units (Range) ? [...] 01/06/2014 10:41:12 Images reviewed and interpretation verified [facility] Cardiac Ultrasound Laboratory Procedure Note Warren Atkinson MD - 01/06/2014 Procedure: Transthoracic Echocardiogram Patient: PAMELA Gordon (Age): 1950(63) Med Rec#: [id number] Sex: M Site Loc: [facility] Ht / Wt: 185(cm)/92(kg) Pt. Loc: CCU BSA: 2.17 Study Date: 01/06/2014 Pt. Type: Inpatient Tape: Referring: Kenia Bauman ([id number]) Referring: BRUCE Wood Planer: Jodie Givens Diagnosis:CPT Code(s): Echo Full (93917), Spectral Doppler (73447), Color Doppler (58327), Indication(s): Tachycardia Rhythm: HR BP 114/63 SUMMARY: [...] Normal Mid-Posterolateral Normal Mid-Inferior Normal Mid-Inferoseptal Normal [place]-Septal Normal [place]-Anterior Normal [place]-Lateral Normal [place]-Inferior Normal [place]-Tip Normal Chambers Value Units (Range) EF Bi-p [...] 01/06/2014 10:41:12 Images reviewed and interpretation verified [facility] Cardiac Ultrasound Laboratory Kenia Bauman MD ECHO ORDERABLES * EKG 12 Lead (01/06/2014 9:29 AM EDT) Ventricular rate 61 BPM MUSE SYSTEM Atrial Rate 61 BPM MUSE SYSTEM P-R Interval 210 ms MUSE SYSTEM QRS Duration 128 ms MUSE SYSTEM Q-T Interval 450 ms MUSE SYSTEM QTC Calculated (Bezet) 453 ms MUSE SYSTEM Calculated P Hewitt 36 degrees MUSE SYSTEM Calculated R Hewitt -51 degrees MUSE SYSTEM Calculated T Hewitt -62 degrees MUSE SYSTEM INTERPRETATION Sinus rhythm [...] AM EDT 01/06/2014 1:03 PM EDT Kenia Buaman MD ECG ORDERABLES Performing Organization Address City/[facility]/ZIP Co de Phone Number MUSE SYSTEM * POCT Glucose (01/06/2014 8:28 AM EDT) Glucose, POC 104 60 - 199 mg/dL [facility] Comment: Supplemental ranges: <140 mg/dL before meals <180 mg/dL all other times of the day Blood specimen (specimen) 01/06/2014 8:28 AM EDT 01/06/2014 8:28 AM EDT Kenia Bauman MD POINT OF CARE TEST O RDERABLES Performing Organization Address [facility] Co de Phone Number [email or web address] * XR chest routine PA & lateral [...] Bauman MD URINE ORDERABLES Performing Organization Address [facility]/ZIP Co de Phone Number CERNER MILLENNIUM [...] Urine Dipstick Hazy(A) Clear CERNER MILLENNIUM Specific [place] Urine Automated 1.019 1.002 - 1.030 CERNER [...] consensus document of the Joint Society of Cardiology/[place] [employer] Committee for the redefinition of myocardial infarction. ??Journal of the [place] College [employer] 2000; 36: 959-969] Creatine [...] MD HEMATOLOGY ORDERABLE S Performing Organization Address City/[facility]/ZIP Co de Phone Number [facility]ER[email or web address] * (ABNORMAL) Hemogram (01/06/2014 2:50 AM EDT) [...] MD HEMATOLOGY ORDERABLE S [facility] * (ABNORMAL) Magnesium (01/06/2014 2:50 AM EDT) Magnesium 0.67(L) 0.69 - 1.07 mmol/L [facility] Blood specimen (specimen) 01/06/2014 2:50 AM EDT 01/06/2014 2:58 AM EDT Narrative Resulting Agency Comment Spec In Lab Kenia Bauman MD CHEMISTRY ORDERABLES [facility] * (ABNORMAL) Lipid panel (fasting) (01/06/2014 2:50 AM EDT) Cholesterol, Total 55 <=199 mg/dL [facility] Comment: Recommendations of the NCEP Adult Treatment Panel for the following risk cutoff thresholds for the [place] population: Desirable: <200 mg/dL Borderline High: 200-239 mg/dL High: > or = 240 mg/dL Triglyceride 148 <=149 mg/dL [facility] Comment: Reference Range: Normal triglycerides: ??<150 mg/dL Borderline high: ??150-199 mg/dL High: ??200-499 mg/dL Very high: ??>gk=588 mg/dL TATI 2001; 285(19):[phone] HDL Cholesterol 26(L) >=40 mg/dL [facility] Comment: Reference range: ??Low HDL: ?? < 40 mg/dL ??Normal: ?40-60 mg/dL ??Desirable: > 60 mg/dL TATI 2001; 285(19):3407-7293 LDL Cholesterol -1 <=99 mg/dL [facility] Comment: Reference range: ?? Optimal: ?<100 mg/dL ?? Near Optimal/Above Optimal: ?? 100-129 mg/dL ?? Borderline high: ?130-159 mg/dL ?? High: ? 160-189 mg/dL ?? Very high: ?>kv=680 mg/dL TATI 2001: 285(19):2583-0282 Cholesterol/HDL Ratio 2.1 ratio CERNER MILLENNIUM Comment: A Cholesterol to HDL ratio below 4:1 is desirable. ??Studies suggest that increased CAD risk occurs at ratios above 5 for females and above 6 for men. ? [place] [employer] Association ??(http://www.americanheart.org) ? Yenny Int Med, 1994; 121:641 ? AM J Med, 1998; 105(1A):48S Blood specimen (specimen) 01/06/2014 2:50 AM EDT 01/06/2014 2:58 AM EDT Narrative Resulting Agency Comment Spec In Lab Kenia Bauman MD CHEMISTRY ORDERABLES [facility] * (ABNORMAL) Basic Metabolic Panel (non-fasting) (01/06/2014 2:50 AM EDT) [facility] Glucose 107 60 - 199 mg/dL CERNER MILLENNIUM Comment:Diabetes: >=200 mg/d L plus symptoms Blood Urea Nitrogen 31(H) 10 - 20 mg/dL CERNER MILLENNIUM Creatinine 1.41 0.80 - 1.50 mg/dL CERNER MILLENNIUM Comment: Please note that the pediatric reference intervals supplied above were not validated at [facility]. Results from pediatric patients should [...] the following links into your internet browser. [email or web address] Blood specimen (specimen) 01/06/2014 2:50 AM EDT 01/06/2014 2:58 AM EDT Narrative Resulting Agency Comment Spec In Lab Kenia Bauman MD CHEMISTRY ORDERABLES Performing Organization Address City/[facility] de Phone Number [facility] [employer]SEPIDEHVant[employer] * EKG 12 Lead (01/06/2014 2:01 AM EDT) Ventricular rate 69 BPM MUSE SYSTEM Atrial Rate 69 BPM MUSE SYSTEM P-R Interval 212 ms MUSE SYSTEM QRS Duration 126 ms MUSE SYSTEM Q-T Interval 416 ms MUSE SYSTEM QTC Calculated (Bezet) 445 ms MUSE SYSTEM Calculated P Hewitt 18 degrees MUSE SYSTEM Calculated R Hewitt -55 degrees MUSE SYSTEM Calculated T Hewitt -70 degrees MUSE SYSTEM INTERPRETATION Sinus rhythm with 1st degree A-V block Left anterior fascicular block Non-specific intra-ventricula r conduction block T wave abnormality, consider inferior ischemia T wave abnormality, consider anterolateral ischemia Abnormal ECG Confirmed by MD William, Navid ([id number]) on 01/07/2014 4:01:06 PM MUSE SYSTEM 01/06/2014 2:01 AM EDT 01/07/2014 4:01 PM EDT Unknown ECG ORDERABLES Performing Organization Address [facility] de Phone Number MUSE SYSTEM documented in this encounter Visit Diagnoses Not on filedocumented in this encounter Administered Medications Inactive Administered Medications - up to 3 most recent administrations Medication Order MAR Action Action Date Dose Rate Site adenosine 90 mg in sodium chloride 0.9% 90 mL infusion (CHANGE MANAGEMENT) CONTINUOUS PRN, Starting on Thu01/06/14 at 1539, Until Thu01/11/14 at 1539, Cath (Intra-Procedure), Routine New Bag 01/06/2014 3:39 PM EDT 140 mcg/kg/min 776.2 mL/hr bivalirudin (ANGIOMAX) 250 mg in sodium chloride 0.9% 50 mL infusion (CHANGE MANAGEMENT) CONTINUOUS PRN, Starting on Thu01/06/14 at 1523, [...] Fontaine, NAHUN) 0908 (Given - Provider: Loraine Saldivar, RN) 0847 (Given - Provider: rEvin Fontaine RN) BUpivacaine (PF) (MARCAINE) 0.5 % [...] Ervin Fontaine RN)1733 (Given - Provider: Ervin Fontaine, NAHUN)2011 (Given - Provider: Yamile Raya RN)2345 (Given [...] to induce or maintain moderate sedation per [facility] Moderate Sedation Protocol, Not to [...] Yaron Don RN)1648 (Given - Provider: Yaron oDn RN) midazolam (PF) (VERSED) 1 mg/mL injection 0.5-1 mg () 0.5-1 mg, Intravenous, EVERY 5 MIN PRN, Starting on Thu01/10/14 at 1444, Until Thu01/11/14 at 0043, Sleep, As needed to induce or maintain moderate sedation per [facility] Moderate Sedation Protocol, Not to [...] RN) documented in this encounter Care Teams Assembler Crimper Relationship Specialty Start Date End Date Jennifer Haro MD PCP - General 01/07/12 01/30/14 documented as of this encounter
--- OUTSIDE RECORDS SUMMARY | 2024-05-09 16:25 | XMS_ITS | Encounter Summary ---
Author Organization [facility] Address [facility] [place] [address] Care Team Providers Care Automatic Steel Tie Adjuster Name Role Phone Jennifer Haro MD Primary Care Provider Unavaila ble Encounter Details Date Type Department Care Team (Late st Contact Info) Description 01/06/2014 4:00 PM EDT - 01/06/2014 6:00 PM EDT Surgery [place] [id number] José Manuel Cole MD [facility] [place] [address] ELECTROPHYSIOLOGY PROCEDURE Social History Tobacco Use Types [...] a 91 day new device check at [facility] EP Device [facility]. 4. Transtelephonic device follow [...] 8:10 AM Kit Self MD Leb Card[facility] Follow-Up Appointments Date and Time Provider and Specialty Location Jan 13, 2014 @ 2:[address] Bingham [facility] Your Inpatient Doctor: Kenia Bauman MD Your Primary Care Provider: JENNIFER HARO MD [phone] For questions regarding this document or issues relating to this hospitalization on the Medical Service, please contact your inpatient physician through the [facility] Business Case Analyst . Issues afterhours and on weekends will [...] times daily. 90 tablet 6 05/14/2013 01/27/2017 Stirling-3 Fatty Acids (FISH OIL) 500 mg Cap Take by mouth daily. 01/14/2016 lamotrigine (LAMICTAL) 100 mg tablet Take 200 mg by mouth daily. 09/01/2018 alprazolam (XANAX XR) 3 mg 24 hr tablet Take 3 mg by mouth nightly. 09/18/2020 lactobac cmb #2-alo-fymzehcotq (PROBIOTIC & ACIDOPHILUS) 300-250 million cell-mg Cap [...] answered at this time. Patient discharged to [facility] with Daughter in stable condition. Wheelchair offered; patient elected to walk. * Edy Torres PA - 01/11/2014 12:10 PM EDT Patient Name: Shahnaz Santiago Patient Age: 63 y.o. Birthdate: 1950 Admit date: 01/06/2014 Attending Physician: Kenia Bauman MD Cardiac Electrophysiology Post-Iimplant Device Interrogation Note Shahnaz Santiago is a 63 y.o. male is POD # 1 following implant of a dual chamber, [employer] ICD for sustained ventricular tachycardia. He [...] in situ V45.02 Device data: Ventricular electrode: [employer] Baltic Model# 0292 Serial# [id number] Bipolar, steroid-tipped, active-fixation, single coil DF-4 lead Access: Left axillary vein Location: RV apex R wave, ICD: 9.6 mV Pacing threshold, ICD: 0.6 V at 0.5 ms Impedance, ICD: 913 ohms (74 ohms for shock vector) Pace the diaphragm at 10 V: No Atrial electrode: [employer] Dextrus Model# 4136 Serial# [id number] Bipolar, steroid-tipped, active-fixation IS-1 lead Access: Left axillary vein Location Right atrial appendage P wave, ICD: 4.3 mV Pacing threshold, pacemaker: 1.7 V at 0.5 ms Impedance, pacemaker: 538 ohms Pace the diaphragm at 10 V: No Pulse generator: [employer] Incepta Model# E162 Serial# [id number] DDDR ICD Location: Subcutaneous Defibrillation testing was [...] ~ 91 days. Provider: MAXIMO Leija Provider#: [id number] Consult attending physician: Estefanía Cross MD * Raul Salmeron RN - 01/11/2014 8:04 AM EDT Inpatient Post ICD Implant Teaching Note Verbal teaching was performed today iohr-db-wqfc with the patient including the following: -Brief generalized teaching of how ICDs function, and the patient's specific indication for ICD implant -Activity restrictions post ICD implant -Remote monitoring of the ICD via telephone (patient was given [facility] Latitude communicator today). -ICD insertion site wound [...] of care and discharge planning. Nora Schaeffer [employer]ITIES TRADER CRC/Stacy Pabon MSN BSN RN CRC Office of Care Managment Pager [phone] * Yamile Raya RN - 01/10/2014 6:30 [...] One episode 7 beat run VT ~150bpm. [place] warm, needed to urinate during that time. [...] Oral Daily Continuous Infusions: ??? bivalirudin Stopped (01/06/146) ??? adenosine Stopped (01/06/141544) PRN Meds:.potassium chloride, [...] in to convince him not to leave [facility] without an ICD. Will await his decision. [...] Jennifer Harris - 01/06/2014 4:24 PM EDT Admin Prog Coord Encounter Note Patient Name: Shahnaz Santiago : [id number] MR#: [id number] Admit Date: 01/06/2014 1:50 AM Hospital Day 0 days Narrative: Shahnaz was happy and open to ice cream chef visit. Assessment: We had a long conversation of what he considered that has been militating against a health life-style: smoking. Moreover he was not a islam person based on his experiences over the years yet accepts prayers. Intervention and Outcome: We prayed for God's healing & strength. Follow-up: Yes Time in Direct Care: 35 mins Jennifer Zimmer Steevn 01/06/2014 * Stacy Pabon RN - 01/06/2014 2:17 PM EDT Office of Care Management Clinical Adjunct Mathematics Instructor Patient Name: Shahnaz Santiago : 1950, 63 yrs Admission Date: 01/06/2014 1:50 AM Attending: Kenia Bauman MD Order to Admit: Signed Record reviewed and patient discussed with multidisciplinary team. Lives in [place], [place] 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 He is independent and drives. Insurance: No Insurance. (Guillermo Aaron APPLICATIONS SYSTEM ANALYST notified) [facility] in [facility] Medical/Surgical:63 yo man with ASCVD s/p [...] Pabon MSN RN Clinical Resource Coordinators Phone: [phone] Pager [phone] documented in this encounter H&P Notes * Edy Berry MD - 01/07/2014 5:02 PM EDT Inpatient Cardiac Electrophysiology Follow-up Note Date of Consultation: 01/07/2014 Admit Date: 01/06/2014 Place of Service: Inpatient Unit Reason for Consult: We are seeing Shahnaz Santiago for the evaluation of ventricular tachycardia Patient Active Problem List Diagnosis ??? ASCVD (arteriosclerotic cardiovascular disease) Overview Note: ?? Heart catheterization in [facility] in 2008 with placement of a stent in an unspecified vessel ?? Repeat heart catheterization in 2008 with placement of stents to both the LAD and circumflex ?? Followup heart catheterization in 2008 showing stable results in both vessels ?? Her current chest discomfort in a somewhat atypical pattern beginning fall ?? Nuclear stress test at [facility] in [place], [place] May 02, 2013 during which he developed left shoulder and arm discomfort during submaximal exercise on the treadmill and after which he was converted to a pharmacologic test; nuclear imaging showed ejection fraction of 45% with a partially reversible inferior defect ?? Cath [facility] 05/13/2013: normal left main, mild diffuse disease [...] ASCVD (PCI to Cx, LAD; no hx CT) and tobacco use. 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 He has continued to go tocardiac rehab since then and had been doing well. On 01/04, he was walking in the [facility] when he developed sudden onset shortness of breath, which made him feel wobbly. He denied chest pain, palpitations (except for unusual pulsing in right ear lobe), or syncope though he felt weak and near-syncopal with exertion intermittently. His dyspnea remained present when he awoke the next morning, and he went to [facility], where ECG showed VT. He was cardioverted with return to R with 1st degree AVB, sub-mm STD in the lateral leads. His troponin was indeterminate. The patient was transferred to the [facility], where he has remained in NSR. [...] mg by mouth 2 times daily. ??? Stirling-3 Fatty Acids (FISH OIL) 500 mg Cap Take by mouth daily. ??? multivitamin capsule Take 1 capsule by mouth daily. ??? LANCETS MISC by Misc.(Non-Drug; Combo Route) route. ??? lamotrigine (LAMICTAL) 100 mg tablet Take 100 mg by mouth daily. ??? alprazolam (XANAX XR) 3 mg 24 hr tablet Take 3 mg by mouth every morning. ? ? lactobac cmb #1-nzk-enjsvfamxn (PROBIOTIC & ACIDOPHILUS) 300-250 million cell- mg [...] of cardiac arrest, pt believes due to CT at age of 53. Heavy smoker. His mother had PVD. 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 Heart catheterization in [facility] in 2007 with placement of a stent in an unspecified vessel ?? Repeat heart catheterization in 2008 with placement of stents to both the LAD and circumflex ?? Followup heart catheterization in 2008 showing stable results in both vessels ?? Her current chest discomfort in a somewhat atypical pattern beginning fall ?? Nuclear stress test at [facility] in [place], [place] May 02, 2013 during which he developed left shoulder and arm discomfort during submaximal exercise on the treadmill and after which he was converted to a pharmacologic test; nuclear imaging showed ejection fraction of 45% with a partially reversible inferior defect ?? Cath [facility] 05/13/2013: normal left main, mild diffuse disease [...] ASCVD (PCI to Cx, LAD; no hx CT) and tobacco use. Andressa recently had a [...] the next morning, and he went to [facility], where ECG showed VT. He was cardioverted with return to NSR with 1st degree AVB, sub-mm STD in the lateral leads. His troponin was indeterminate. The patient was transferred to the [facility], where he has remained in NSR. [...] mg by mouth 2 times daily. ??? Stirling-3 Fatty Acids (FISH OIL) 500 mg Cap Take by mouth daily. ??? multivitamin capsule Take 1 capsule by mouth daily. ??? LANCETS MISC by Misc.(Non-Drug; Combo Route) route. ??? lamotrigine (LAMICTAL) 100 mg tablet Take 100 mg by mouth daily. ??? alprazolam (XANAX XR) 3 mg 24 hr tablet Take 3 mg by mouth every morning. ? ? lactobac cmb #1-zvv-kphoblcgak (PROBIOTIC & ACIDOPHILUS) 300-250 million cell- mg [...] of cardiac arrest, pt believes due to CT at age of 53. Heavy smoker. His mother had PVD. 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 He should ideally check pulse for any recurrent symptoms of VT (e.g. Weakness, SOB) and not delay hospital presentation as he did this time. Will discuss more with him in AM. * Kenia Bauman MD - 01/06/2014 2:45 AM EDT Cardiology Admission History and Physical Patient Name: Shahnaz Santiago Service: [address] Responsible Attending: Kenia Bauman MD, MD PCP: JENNIFER HARO MD PCP phone #: [phone] ID/Chief Complaint: 63 yo man with ASCVD [...] a chronic, has beenaffecting him 20 years, cfjzptpip-ij-nzidybjeyc, sternally located discomfort that is constant and [...] rhythm with a 1st degree AV block GA of 214ms, as well as new T-wave inversions and sub 1mm ST depressions in V3-V6. His troponin was an indeterminate value 0.13 (0.06-0.59 =indeterminate). The patient was then transferred to [facility]. , OSH labs prior to transfer: 15.2 20.6 H/H 241 45.3 137 98 33 Glc Ca 9.8 4.0 23.5 2.1 260 Mg 1.7 Phos - Baseline Cr 1.0 Troponin /18 9PM (0.0-0.06) - 0.13 CK:-non Review of [...] (arteriosclerotic cardiovascular disease) ?? Heart catheterization in [facility] in 2007 with placement of a stent in an unspecified vessel ?? Repeat heart catheterization in 2008 with placement of stents to both the LAD and circumflex ?? Followup heart catheterization in 2008 showing stable results in both vessels ?? Her current chest discomfort in a somewhat atypical pattern beginning fall ?? Nuclear stress test at [facility] in [place], [place] May 02, 2013 during which he developed left shoulder and arm discomfort during submaximal exercise on the treadmill and after which he was converted to a pharmacologic test; nuclear imaging showed ejection fraction of 45% with a partially reversible inferior defect ?? Cath [facility] 05/13/2013: normal left main, mild diffuse disease [...] Cap Take by mouth daily. Generic drug: Stirling-3 Fatty Acids Refills: 0 glipiZIDE 5 mg [...] by mouth daily. Generic drug: lactobac cmb #4-yew-amddcohkqs Refills: 0 rosuvastatin 20 mg Tab Commonly [...] 2-3 days pending evaluation of possible ischemia Kaylan Babb, PGY-2 Team Pager # [phone] Cardiology Attending Addendum I have interviewed and [...] 01/12/2014 11:50 AM EDTAssociated Order(s): SCAN DOC: HEALTH EVALUATOR documented in this encounter Miscellaneous Notes * [...] a chronic, has beenaffecting him 20 years, paxgufzov-ys-fewkswnplr, sternally located discomfort that is constant and [...] rhythm with a 1st degree AV block GA of 214ms, as well as new T-wave inversions and sub 1mm ST depressions in V3-V6. His troponin was an indeterminate value 0.13 (0.06-0.59 =indeterminate). The patient was then transferred to [facility]. Hospital Course: # Ventricular tachycardia The patient [...] for an in-stent thrombosis (04/2013), an ischemic pile driver of his arrhythmia was a strong [...] smoking (1 pack/day) after moving back to [place]. A consult to smoking cessation was placed and he was strongly encouraged to quit smoking. Nicotine replacement was offered on discharge. Important Studies and Lab Data: Recent Labs Basename 01/11/14 0356 01/10/14 04201/09/14 0432 01/08/14 0703 01/07/14 0340 WBC [...] (CL) of 1070 ms were as follows: GA: 230 ms HV: 40 ms (?) QRS: 110 ms (no manifest pre-excitation) QT: 450 ms 2) Atrial overdrive pacing (10 mA @ 2 ms) was accomplished from the low right atrium, and the atrioventricular (AV) Wenckebach block CL was observed at 500 ms. There was no pre-excitation or conduction aberrancy identified. The pakdwquy-mf-EMG < QRS-QRS just prior to the observed [...] Cap Take by mouth daily. Generic drug: Stirling-3 Fatty Acids Refills: 0 glipiZIDE 5 mg [...] by mouth daily. Generic drug: lactobac cmb #6-fws-zodvlzgfbc Refills: 0 rosuvastatin 20 mg Tab Commonly [...] Center 02/07/2014 8:10 AM Kit Self MD [facility] Cardio [facility] Follow-Up Appointments Date and Time Provider and Specialty Location Jan 13, 2014 @ 2:[address] Bingham [facility] Your Inpatient Doctor: Kenia Bauman MD Your Primary Care Provider: JENNIFER HARO MD [phone] For questions regarding this document or issues relating to this hospitalization on the Medical Service, please contact your inpatient physician through the [facility] Business Case Analyst . Issues afterhours and on weekends will be handled by the Hospitalist staff on-call. Future Appointments and Orders Future Appointments: Provider: Department: Dept Phone: Center: 02/07/2014 8:10 AM Kit Self MD Cardiology [phone] [facility] Joint Appt Nurse One Cardiology Antoni, NAHUN HOLMB 4A [phone] [facility] 04/10/2014 9:30 AM Raul Salmeron RN Cardiology [phone] [facility] For questions regarding this document or issues relating to this hospitalization on the Medical Service, please contact your inpatient physician through the [facility] Business Case Analyst . Issues afterhours and on weekends will be handled by the Property Management Supervisor staff on-call. Signed: KENIA BAUMAN MD * [...] in the out pt CR program at [facility]. He was admitted with LLOYD and VT. Cardiac cath showed no ischemic etiology of sx. Being considered for ICD. Will refer him back to the [facility] prog at discharge * Miscellaneous - Provider, Scanning - 01/07/2014 2:41 PM EDT * Op Note - José Manuel Cole MD - 01/06/2014 5:34 PM EDT Electrophysiology Study Business Case Analyst: José Manuel Cole MD Indication: Ventricular tachycardia [...] (CL) of 1070 ms were as follows: GA: 230 ms HV: 40 ms (?) QRS: 110 ms (no manifest pre-excitation) QT: 450 ms 2) Atrial overdrive pacing (10 mA @ 2 ms) was accomplished from the low right atrium, and the atrioventricular (AV) Wenckebach block CL was observed at 500 ms. There was no pre-excitation or conduction aberrancy identified. The tdiopcgb-ti-KMJ < QRS-QRS just prior to the observed [...] AM EST Hospital Encounter Non[place] [address] Arrived documented as of this encounter Procedures Procedure Name Priority Date/Time Associated Diagnosis Comments HEALTH EVALUATOR SCAN 01/12/2014 11:50 AM EDT POCT GLUCOSE [...] Routine 01/07/20 3:58 PM EDT CARDIAC ENZYMES ([facility]) Routine 01/06/2014 12:40 PM EDT POCT GLUCOSE Routine 01/06/2014 12:15 PM EDT CARDIAC ENZYMES ([facility]) Routine 01/06/2014 11:30 AM EDT APTT STAT [...] in this encounter Results * SCAN DOC: HEALTH EVALUATOR (01/12/2014 11:50 AM EDT) Anatomical Region Laterality Modality Other Narrative 01/12/2014 11:53 AM EDT Procedure Note Provider, Scanning - 01/12/2014 11:50 AM EDT Scanning Provider MEDIA MGR SCAN EXT O RDR/RSLT * (ABNORMAL) POCT Glucose (01/11/2014 11:55 AM EDT) Glucose, POC 285(H) 60 - 199 mg/dL [facility] Comment: Supplemental ranges: <140 mg/dL before meals <180 mg/dL all other times of the day Blood specimen (specimen) 01/11/2014 11:55 AM EDT 01/11/2014 11:55 AM EDT Kenia Bauman MD POINT OF CARE TEST O RDERABLES [facility] * XR chest routine PA & [...] the following links into your internet browser. [email or web address] Blood specimen (specimen) 01/11/2014 3:56 AM EDT 01/11/2014 4:21 AM EDT Narrative Resulting Agency Comment Spec In Lab Kenia Bauman MD CHEMISTRY ORDERABLES Performing Organization Address [facility] de Phone Number [facility] * POCT Glucose (01/11/2014 3:46 AM EDT) Glucose, POC 137 60 - 199 mg/dL [facility] Comment: Supplemental ranges: <140 mg/dL before meals <180 mg/dL all other times of the day Blood specimen (specimen) 01/11/2014 3:46 AM EDT 01/11/2014 3:46 AM EDT Kenia Bauman MD POINT OF CARE TEST O RDERABLES Performing Organization Address [facility] de Phone Number [facility] * POCT Glucose (01/10/2014 11:57 PM EDT) Glucose, POC 173 60 - 199 mg/dL [facility] Comment: Supplemental ranges: <140 mg/dL before meals <180 mg/dL all other times of the day Blood specimen (specimen) 01/10/2014 11:57 PM EDT 01/10/2014 11:57 PM EDT Kenia Bauman MD POINT OF CARE TEST O RDERABLES Performing Organization Address [facility] de Phone Number [facility] * (ABNORMAL) POCT Glucose (01/10/2014 8:31 PM EDT) Glucose, POC 201(H) 60 - 199 mg/dL [facility] Comment: Supplemental ranges: <140 mg/dL before meals <180 mg/dL all other times of the day Blood specimen (specimen) 01/10/2014 8:31 PM EDT 01/10/2014 8:31 PM EDT Kenia Bauman MD POINT OF CARE TEST O RDERABLES Performing Organization Address [facility] Co de Phone Number [facility] * POCT Glucose (01/10/2014 6:04 PM EDT) Glucose, POC 164 60 - 199 mg/dL [facility] Comment: Supplemental ranges: <140 mg/dL before meals <180 mg/dL all other times of the day Blood specimen (specimen) 01/10/2014 6:04 PM EDT 01/10/2014 6:04 PM EDT Kenia Bauman MD POINT OF CARE TEST O RDERABLES Performing Organization Address [facility] de Phone Number [facility] * Electrophysiology Procedure (01/10/2014 5:19 PM [...] with O-silk. Final Parameters: Ventricular electrode: ?? MediTAP Baltic Model# 0292 Serial# [id number] ??Bipolar, steroid-tipped, active-fixation, ??single coil DF-4 lead ??Access: ? Left axillary vein ??Location: ?RV apex ??R wave, ICD: ? 9.6 mV ??Pacing threshold, ICD: ? 0.6 V at 0.5 ms ??Impedance, ICD: ? 913 ohms (74 ohms for shock vector) ??Pace the diaphragm at 10 V: ??No Atrial electrode: ?? MediTAP Dextrus Model# 4136 Serial# [id number] ??Bipolar, steroid-tipped, active-fixation IS-1 lead ??Access: ? Left axillary vein ??Location ? Right atrial appendage ??P wave, ICD: ? 4.3 mV ??Pacing threshold, pacemaker: ??1.7 V at 0.5 ms ??Impedance, pacemaker: ??538 ohms ??Pace the diaphragm at 10 V: ??No Pulse generator: ? [employer] Incepta Model# E162 Serial# [id number] DDDR ICD ??Location: ?Subcutaneous Defibrillation testing was [...] major muscle withO-silk. Final Parameters: Ventricular electrode: MediTAP Baltic Model# 0292 Serial# [id number] Bipolar, steroid-tipped, active-fixation, single coil DF-4 lead Access: Left axillary vein Location: RV apex R wave, ICD: 9.6 mV Pacing threshold, ICD: 0.6 V at 0.5 ms Impedance, ICD: 913 ohms (74 ohms for shock vector) Pace the diaphragm at 10 V: No Atrial electrode: [employer] Dextrus Model# 4136 Serial# [id number] Bipolar, steroid-tipped, active-fixation IS-1 lead Access: Left axillary vein Location Right atrial appendage P wave, ICD: 4.3 mV Pacing threshold, pacemaker: 1.7 V at 0.5 ms Impedance, pacemaker: 538 ohms Pace the diaphragm at 10 V: No Pulse generator: [employer] Incepta Model# E162 Serial# [id number] DDDR ICD Location: Subcutaneous Defibrillation testing was [...] Glucose, POC 218(H) 60 - 199 mg/dL [facility] Comment: Supplemental ranges: <140 mg/dL before meals <180 mg/dL all other times of the day Blood specimen (specimen) 01/10/2014 11:39 AM EDT 01/10/2014 11:39 AM EDT Kenia Bauman MD POINT OF CARE TEST O RDERABLES [facility] * (ABNORMAL) POCT Glucose (01/10/2014 7:36 AM EDT) Glucose, POC 242(H) 60 - 199 mg/dL [facility] Comment: Supplemental ranges: <140 mg/dL before meals <180 mg/dL all other times of the day Blood specimen (specimen) 01/10/2014 7:36 AM EDT 01/10/2014 7:36 AM EDT Kenia Bauman MD POINT OF CARE TEST O RDERALOREE Performing Organization Address [facility] de Phone Number [facility] PER[facility] * POCT Glucose (01/10/2014 4:25 AM EDT) Glucose, POC 153 60 - 199 mg/dL [facility] Comment: Supplemental ranges: <140 mg/dL before meals <180 mg/dL all other times of the day Blood specimen (specimen) 01/10/2014 4:25 AM EDT 01/10/2014 4:25 AM EDT Kenia Bauman MD POINT OF CARE TEST O RDMARY Performing Organization Address [facility] de Phone Number [facility] PERALTA [...] Bauman MD CHEMISTRY ORDERABLES Performing Organization Address City/[facility] Co de Phone Number CERNER [...] MILLENNIUM Calcium 9.7 8.5 - 10.5 mg/dL [facility] Est Glomerular Filtration Rate >60 >=60 CERNER [...] the following links into your internet browser. [email or web address] Blood specimen (specimen) 01/10/2014 4:21 AM EDT 01/10/2014 4:36 AM EDT Narrative Resulting Agency Comment Spec In Lab Kenia Bauman MD CHEMISTRY ORDERABLES Performing Organization Address [facility] de Phone Number [facility] * POCT Glucose (01/09/2014 11:25 PM EDT) Glucose, POC 164 60 - 199 mg/dL [facility] Comment: Supplemental ranges: <140 mg/dL before meals <180 mg/dL all other times of the day Blood specimen (specimen) 01/09/2014 11:25 PM EDT 01/09/2014 11:25 PM EDT Kenia Bauman MD POINT OF CARE TEST O RDERABLES Performing Organization Address [facility] de Phone Number [facility] * (ABNORMAL) POCT Glucose (01/09/2014 8:03 PM EDT) Glucose, POC 204(H) 60 - 199 mg/dL [facility] Comment: Supplemental ranges: <140 mg/dL before meals <180 mg/dL all other times of the day Blood specimen (specimen) 01/09/2014 8:03 PM EDT 01/09/2014 8:03 PM EDT Kenia Bauman MD POINT OF CARE TEST O RDERABLES Performing Organization Address [facility] Co de Phone Number [facility] * (ABNORMAL) POCT Glucose (01/09/2014 4:34 PM EDT) Glucose, POC 231(H) 60 - 199 mg/dL [facility] Comment: Supplemental ranges: <140 mg/dL before meals <180 mg/dL all other times of the day Blood specimen (specimen) 01/09/2014 4:34 PM EDT 01/09/2014 4:34 PM EDT Kenia Bauman MD POINT OF CARE TEST O RDERALOREE Performing Organization Address [facility] de Phone Number [facility] * (ABNORMAL) POCT Glucose (01/09/2014 11:44 AM EDT) Glucose, POC 280(H) 60 - 199 mg/dL [facility] Comment: Supplemental ranges: <140 mg/dL before meals <180 mg/dL all other times of the day Blood specimen (specimen) 01/09/2014 11:44 AM EDT 01/09/2014 11:44 AM EDT Kenia Bauman MD POINT OF CARE TEST O RDERALOREE Performing Organization Address [facility] de Phone Number [facility] * POCT Glucose (01/09/2014 7:51 AM EDT) Glucose, POC 148 60 - 199 mg/dL [facility] Comment: Supplemental ranges: <140 mg/dL before meals <180 mg/dL all other times of the day Blood specimen (specimen) 01/09/2014 7:51 AM EDT 01/09/2014 7:51 AM EDT Kenia Bauman MD POINT OF CARE TEST O RDERABLES Performing Organization Address [facility] Co de Phone Number [facility] * Basic Metabolic Panel (non-fasting) (01/09/2014 4:32 AM EDT) [facility] Signature Glucose 124 60 - 199 mg/dL CERNER [...] the following links into your internet browser. [email or web address] Blood specimen (specimen) 01/09/2014 4:32 AM EDT 01/09/2014 4:38 AM EDT Narrative Resulting Agency Comment Spec In Lab Kenia Bauman MD CHEMISTRY ORDERABLES [facility] YCLIENTS COMPANYENNIUM * (ABNORMAL) Differential, Automated (01/09/2014 4:32 AM [...] Resulting Agency Comment Spec In Lab Kenia aBuman MD HEMATOLOGY ORDERABLE S [facility] BENITEZIUM * (ABNORMAL) Hemogram (01/09/2014 4:32 AM EDT) White Blood Cell 8.0 4.0 - 10.0 x10(3)/mc L CERNER MILLENNIUM Red Blood Cell 4.83 4.63 - 6.08 x10(6)/mc L CERNER MILLENNIUM Hemoglobin 14.5 13.7 - 17.5 gm/dL [facility] Comment:Repeated & verified Hematocrit 43.0 40.0 - 51.0 % [facility] MILLENNIUM Mean Cell Volume 89.0 79.0 - 92.0 fL [facility] MILLENNIUM Mean Cell Hemoglobin 30.0 25.6 - 32.2 pg [facility] Mean Cell Hemoglobin Concentration 33.7 32.0 - 36.5 gm/dL [facility] Platelet 184 145 - 370 x10(3)/mc L [facility] MILLENNIUM RDW Standard Deviation 47.4(H) 35.0 - 46.0 fL [facility] MILLENNIUM RDW coefficient of variation 14.8(H) 10.9 - 14.4 % [facility] MILLENNIUM Mean Platelet Volume 10.3 9.0 - 12.0 fL [facility] Blood specimen (specimen) 01/09/2014 4:32 AM EDT 01/09/2014 4:38 AM EDT Narrative Resulting Agency Comment Spec In Lab Kenia Bauman MD HEMATOLOGY ORDERABLE S [facility] * Magnesium (01/09/2014 4:32 AM EDT) Pathologist [facility] [place] Magnesium 0.76 0.69 - 1.07 mmol/L [facility] Blood specimen (specimen) 01/09/2014 4:32 AM EDT 01/09/2014 4:38 AM EDT Narrative Resulting Agency Comment Spec In Lab Kenia Bauman MD CHEMISTRY ORDERABLES [facility] * POCT Glucose (01/09/2014 4:19 AM EDT) Pathologist [facility] [place] Glucose, POC 114 60 - 199 mg/dL [facility] Comment: Supplemental ranges: <140 mg/dL before meals <180 mg/dL all other times of the day Blood specimen (specimen) 01/09/2014 4:19 AM EDT 01/09/2014 4:19 AM EDT Kenia Bauman MD POINT OF CARE TEST O RDERABLES Performing Organization Address [facility] Co de Phone Number MONICA BENITEZIUM * POCT Glucose (01/09/2014 1:41 AM EDT) Glucose, POC 155 60 - 199 mg/dL [facility] Comment: Supplemental ranges: <140 mg/dL before meals <180 mg/dL all other times of the day Blood specimen (specimen) 01/09/2014 1:41 AM EDT 01/09/2014 1:41 AM EDT Kenia Bauman MD POINT OF CARE TEST O RDERABLES Performing Organization Address [facility] de Phone Number [facility] SERVICES[facility] BENITEZIUM * (ABNORMAL) POCT Glucose (01/08/2014 11:19 PM EDT) Glucose, POC 252(H) 60 - 199 mg/dL [facility] Comment: Supplemental ranges: <140 mg/dL before meals <180 mg/dL all other times of the day Blood specimen (specimen) 01/08/2014 11:19 PM EDT 01/08/2014 11:19 PM EDT Kenia Bauman MD POINT OF CARE TEST O RDERABLES Performing Organization Address [facility] de Phone Number CERDELMAR BENITEZIUM * (ABNORMAL) POCT Glucose (01/08/2014 7:50 PM EDT) Glucose, POC 205(H) 60 - 199 mg/dL [facility] Comment: Supplemental ranges: <140 mg/dL before meals <180 mg/dL all other times of the day Blood specimen (specimen) 01/08/2014 7:50 PM EDT 01/08/2014 7:50 PM EDT Kenia Bauman MD POINT OF CARE TEST O RDERABLES Performing Organization Address [facility] Co de Phone Number MONICA ROSEENNIUM * POCT Glucose (01/08/2014 5:17 PM EDT) Glucose, POC 194 60 - 199 mg/dL [facility] Comment: Supplemental ranges: <140 mg/dL before meals <180 mg/dL all other times of the day Blood specimen (specimen) 01/08/2014 5:17 PM EDT 01/08/2014 5:17 PM EDT Kenia Bauman MD POINT OF CARE TEST O RDERALOREE Performing Organization Address [facility] Co de Phone Number [facility] * (ABNORMAL) POCT Glucose (01/08/2014 2:21 PM EDT) Glucose, POC 230(H) 60 - 199 mg/dL [facility] Comment: Supplemental ranges: <140 mg/dL before meals <180 mg/dL all other times of the day Blood specimen (specimen) 01/08/2014 2:21 PM EDT 01/08/2014 2:21 PM EDT Kenia Bauman MD POINT OF CARE TEST O RDERALOREE Performing Organization Address [facility] de Phone Number [facility] * (ABNORMAL) POCT Glucose (01/08/2014 12:04 PM EDT) Glucose, POC 240(H) 60 - 199 mg/dL [facility] Comment: Supplemental ranges: <140 mg/dL before meals <180 mg/dL all other times of the day Blood specimen (specimen) 01/08/2014 12:04 PM EDT 01/08/2014 12:04 PM EDT Kenia Bauman MD POINT OF CARE TEST O RDERABLES Performing Organization Address [facility] de Phone Number [facility] * POCT Glucose (01/08/2014 7:56 AM EDT) Glucose, POC 125 60 - 199 mg/dL [facility] Comment: Supplemental ranges: <140 mg/dL [...] Bauman MD CHEMISTRY ORDERABLES Performing Organization Address [place]/[facility] Co de Phone Number CERNER [...] MD HEMATOLOGY ORDERABLE S Performing Organization Address [place]/[facility] Co de Phone Number CERDELMAR BENITEZIUM * (ABNORMAL) Hemogram (01/08/2014 7:03 AM EDT) [...] the following links into your internet browser. [email or web address] Blood specimen (specimen) 01/08/2014 7:03 AM EDT 01/08/2014 7:08 AM EDT Narrative Resulting Agency Comment Spec In Lab Kenia Bauman MD CHEMISTRY ORDERABLES Performing Organization Address City/State/[facility] de Phone Number [facility] * (ABNORMAL) POCT Glucose (01/08/2014 3:55 AM EDT) Glucose, POC 219(H) 60 - 199 mg/dL [facility] Comment: Supplemental ranges: <140 mg/dL before meals <180 mg/dL all other times of the day Blood specimen (specimen) 01/08/2014 3:55 AM EDT 01/08/2014 3:55 AM EDT Kenia Bauman MD POINT OF CARE TEST O RDERABLES Performing Organization Address [facility] Phone Number [facility] * POCT Glucose (01/07/2014 11:51 PM EDT) Glucose, POC 153 60 - 199 mg/dL [facility] Comment: Supplemental ranges: <140 mg/dL before meals <180 mg/dL all other times of the day Blood specimen (specimen) 01/07/2014 11:51 PM EDT 01/07/2014 11:51 PM EDT Kenia Bauman MD POINT OF CARE TEST O RDERABLES Performing Organization Address [facility] Phone Number [facility] * POCT Glucose (01/07/2014 9:32 PM EDT) Glucose, POC 190 60 - 199 mg/dL [facility] Comment: Supplemental ranges: <140 mg/dL before meals <180 mg/dL all other times of the day Blood specimen (specimen) 01/07/2014 9:32 PM EDT 01/07/2014 9:32 PM EDT Kenia Bauman MD POINT OF CARE TEST O RDERABLES Performing Organization Address [facility] de Phone Number [facility] * (ABNORMAL) POCT Glucose (01/07/2014 7:36 PM EDT) Glucose, POC 223(H) 60 - 199 mg/dL CERNER MILLENNIUM Comment: Supplemental ranges: <140 mg/dL before meals <180 mg/dL all other times of the day Blood specimen (specimen) 01/07/2014 7:36 PM EDT 01/07/2014 7:36 PM EDT Kenia Bauman MD POINT OF CARE TEST O RDERALOREE Performing Organization Address [facility] de Phone Number [facility] SERVICES[facility]LM[facility] * POCT Glucose (01/07/2014 5:32 PM EDT) Glucose, POC 180 60 - 199 mg/dL [facility] Comment: Supplemental ranges: <140 mg/dL before meals <180 mg/dL all other times of the day Blood specimen (specimen) 01/07/2014 5:32 PM EDT 01/07/2014 5:32 PM EDT Kenia Bauman MD POINT OF CARE TEST O SAM[place]ON Performing Organization Address [facility] de Phone Number [facility] SERVICESDELM[facility] ROSEENNIUM * (ABNORMAL) POCT Glucose (01/07/2014 1:24 PM EDT) Glucose, POC 240(H) 60 - 199 mg/dL [facility] MILLENNIUM Comment: Supplemental ranges: <140 mg/dL before meals <180 mg/dL all other times of the day Blood specimen (specimen) 01/07/2014 1:24 PM EDT 01/07/2014 1:24 PM EDT Kenia Bauman MD POINT OF CARE TEST O CARLOSERALOREE Performing Organization Address [facility] de Phone Number [facility] BENITEZIUM * (ABNORMAL) Magnesium (01/07/2014 10:00 AM EDT) Magnesium 0.66(L) 0.69 - 1.07 mmol/L [facility] SERVICESDELM[facility]FLAG[facility] Blood specimen (specimen) 01/07/2014 10:00 AM EDT 01/07/2014 10:17 AM EDT Narrative Resulting Agency Comment Spec In Lab Kenia Bauman MD CHEMISTRY ORDERABLES Performing Organization Address [facility] de Phone Number MONICA PERALTA * Potassium (01/07/2014 10:00 AM EDT) Potassium 4.3 3.5 - 5.0 mmol/L [facility] SERVICES[facility] Comment: Please note: ??Patients with [...] Bauman MD CHEMISTRY ORDERABLES Performing Organization Address [facility] de Phone Number MONICA PERALTA * POCT Glucose (01/07/2014 9:23 AM EDT) Glucose, POC 178 60 - 199 mg/dL [facility] Comment: Supplemental ranges: <140 mg/dL before meals <180 mg/dL all other times of the day Blood specimen (specimen) 01/07/2014 9:23 AM EDT 01/07/2014 9:23 AM EDT Kenia Bauman MD POINT OF CARE TEST O RDERABLES Performing Organization Address [facility] de Phone Number MONICA PERALTA [...] ORDERABLE S CERDELMAR MILLENNIUM * (ABNORMAL) Hemogram (01/07/2014 3:40 AM [...] ORDERABLE S Performing Organization Address [facility] Co de Phone Number [facility] MILLENNIUM * (ABNORMAL) Magnesium (01/07/2014 3:40 AM EDT) Magnesium 0.61(L) 0.69 - 1.07 mmol/L CERNER MILLENNIUM Blood specimen (specimen) 01/07/2014 3:40 AM EDT 01/07/2014 3:43 AM EDT Narrative Resulting Agency Comment Spec In Lab Kenia Bauman MD CHEMISTRY ORDERABLES Performing Organization Address [facility] de Phone Number CERNER MILLENNIUM [...] the following links into your internet browser. [email or web address] Blood specimen (specimen) 01/07/2014 3:40 AM EDT 01/07/2014 3:43 AM EDT Narrative Resulting Agency Comment Spec In Lab Kenia Bauman MD CHEMISTRY ORDERABLES Performing Organization Address [facility] de Phone Number [facility] * POCT Glucose (01/07/2014 3:39 AM EDT) Glucose, POC 95 60 - 199 mg/dL [facility] Comment: Supplemental ranges: <140 mg/dL before meals <180 mg/dL all other times of the day Blood specimen (specimen) 01/07/2014 3:39 AM EDT 01/07/2014 3:39 AM EDT Kenia Bauman MD POINT OF CARE TEST O RDERABLES Performing Organization Address [facility] Co de Phone Number [facility] * POCT Glucose (01/06/2014 11:40 PM EDT) Glucose, POC 130 60 - 199 mg/dL [facility] Comment: Supplemental ranges: <140 mg/dL before meals <180 mg/dL all other times of the day Blood specimen (specimen) 01/06/2014 11:40 PM EDT 01/06/2014 11:40 PM EDT Kenia Bauman MD POINT OF CARE TEST O SAM[place] Performing Organization Address [facility] de Phone Number [facility] [employer] * POCT Glucose (01/06/2014 9:23 PM EDT) Glucose, POC 173 60 - 199 mg/dL [facility] [employer] Comment: Supplemental ranges: <140 mg/dL before meals <180 mg/dL all other times of the day Blood specimen (specimen) 01/06/2014 9:23 PM EDT 01/06/2014 9:23 PM EDT Kenia Bauman MD POINT OF CARE TEST O [place] Performing Organization Address [facility] de Phone Number [facility] [employer] SystemsIUM * POCT Glucose (01/06/2014 6:42 PM EDT) Glucose, POC 125 60 - 199 mg/dL [facility] [employer] Comment: Supplemental ranges: <140 mg/dL before meals <180 mg/dL all other times of the day Blood specimen (specimen) 01/06/2014 6:42 PM EDT 01/06/2014 6:42 PM EDT Kenia Bauman MD POINT OF CARE TEST O [place] Performing Organization Address [facility] Phone Number [facility] [employer] * Electrophysiology Procedure (01/06/2014 5:20 PM EDT) [...] Modality Other Narrative 01/09/2014 7:14 AM EDT ?[facility] ? Cardiac Catheterization/Intervention Report ? Patient Name: Shahnaz Santiago ? Procedure Date: 01/06/2014 ? A #: [id number] ? Primary Physician: Jaron Jarquin ? Case #: [id number] ? File Name: [id number] ? Catheterization Order Number: [id number] ? [facility] ? Final Report [place], [place] ? Patient Name: ? Shahnaz Kimzhang ? ID#: ?[id number] ? : ?1950 ? Procedure Date: ? January 06, 2014 ? Case #: ? [id number] ? Room: ? 1 ? Case Physician: ? Jaron Jarquin M.D. ? Start: ?14:40 ?Fellow: ? Jennifer Nguyen Chiaco, ?Admission: ??01/06/2014 ?M.D. ? Referring Physician: ??Jennifer Haro M.D. ? Procedures: ?* Coronary Angiography ?* Left Heart Catheterization ?* Coronary Flow [place] Measurement ?* Coronary Instantaneous Wave-Free Ratio ?* [...] Note Jaron Jarquin II, MD - 01/09/2014 [facility] Cardiac Catheterization/Intervention Report Patient Name: Shahnaz Santiago Procedure Date: 01/06/2014 A #: [id number] Primary Physician: Jaron Jarquin Case #: File Name: [id number] Catheterization Order Number: [id number] [facility] FinalReport [place], [place] Patient Name: Shahnza Santiago ID#:[id number] :1950 Procedure Date: January 06, 2014 Case #: Room: 1 Case Physician: Jaron Jarquin M.D. Start: 14:40 Fellow: Jennifer Argueta, Admission:01/06/2014 [place] Referring Physician: Jennifer Haro M.D. Procedures: * Coronary Angiography * Left Heart Catheterization * Coronary Flow [place] Measurement * Coronary Instantaneous Wave-Free Ratio * [...] damage. Diagnosis of acute, evolving or recent CT requires a typical rise and gradual fall [...] consensus document of the Joint Society of Cardiology/Indian College of Cardiology Committee for the redefinition of myocardial infarction. ??Journal of the Indian College of Cardiology 2000; 36: 959-969] Creatine [...] O RDERABLES Performing Organization Address [facility] Co de Phone Number MONICA [...] damage. Diagnosis of acute, evolving or recent CT requires a typical rise and gradual fall [...] consensus document of the Joint Society of Cardiology/Indian College of Cardiology Committee for the redefinition of myocardial infarction. ??Journal of the Indian College of Cardiology 2000; 36: 959-969] Creatine Kinase 132 0 - 200 unit/L MONICA PERALTA Blood specimen (specimen) 01/06/2014 11:30 AM EDT 01/06/2014 11:45 AM EDT Narrative Resulting Agency Comment Spec In Lab Kenia Bauman MD CHEMISTRY ORDERABLES Performing Organization Address [facility] Co de Phone Number MONICA [...] ORDERABLE S Performing Organization Address [facility] de Phone Number [facility] * LDL Cholesterol, Direct (01/06/2014 11:30 AM EDT) LDL Cholesterol, Direct 13 <=99 mg/dL [facility] Comment: The National Cholesterol Education Program (NCEP) has set the following guidelines for LDL Cholesterol: Reference range: ?? Optimal: ?<100 mg/dL ?? Near Optimal/Above Optimal: ?? 100-129 mg/dL ?? Borderline high: ?130-159 mg/dL ?? High: ? 160-189 mg/dL ?? Very high: ?>sg=962 mg/dL TATI 2001: 285(19):3638-6529 Blood specimen (specimen) 01/06/2014 11:30 AM EDT 01/06/2014 11:45 AM EDT Narrative Resulting Agency Comment Spec In Lab Kenia Bauman MD CHEMISTRY ORDERABLES Performing Organization Address [facility] de Phone Number [facility] * Echocardiogram Transthoracic(Leb) (01/06/2014 10:29 AM EDT) EF 56 HEART[facility] SYSTEM Anatomical Region Laterality Modality Other 01/06/2014 Narrative 01/06/2014 10:41 AM EDT Procedure: ? Transthoracic Echocardiogram Patient: ? PAMELA Gordon ? (Age): 1950(63) Med Rec#: ?[id number] ? Sex: ?M ? Site Loc: ?[facility] ? Ht / Wt: ??185(cm)/92(kg) Pt. Loc: ? [facility] ?BSA: ?2.17 Study Date: ?01/06/2014 ? Pt. Type: Inpatient Tape: ? Referring: Kenia Bauman ([id number]) Referring: BRUCE Print Finisher: Jodie Givens Diagnosis:CPT Code(s): ??Echo Full (72279), ??Spectral Doppler (81048), Color Doppler (36605), Indication(s): ??Tachycardia Rhythm: HR ?BP ?114/63 ?? [...] ? Mid-Inferior ?Normal ? Mid-Inferoseptal ?Normal ? Braxton-Septal ? Normal ? Braxton-Anterior ? Normal ? Braxton-Lateral ?Normal ? Braxton-Inferior ? Normal ? Braxton-Tip ?Normal ? Chambers ?Value ?Units (Range) ? [...] 01/06/2014 10:41:12 Images reviewed and interpretation verified [facility] Cardiac Ultrasound Laboratory Procedure Note Warren Atkinson MD - 01/06/2014 Procedure: Transthoracic Echocardiogram Patient: PAMELA Gordon (Age): 1950(63) Med Rec#: [id number] Sex: M [place] Loc[place] [facility] Ht / Wt: 185(cm)/92(kg) Pt. Loc: CCU BSA: 2.17 Study Date: 01/06/2014 Pt. Type: Inpatient Tape: Referring: Kenia Bauman ([id number]) Referring: BRUCE Print Finisher: Jodie Givens Diagnosis:CPT Code(s): Echo Full (00222), Spectral Doppler (79755), Color Doppler (29354), Indication(s): Tachycardia Rhythm: HR BP 114/63 SUMMARY: [...] Normal Mid-Posterolateral Normal Mid-Inferior Normal Mid-Inferoseptal Normal Braxton-Septal Normal Braxton-Anterior Normal Braxton-Lateral Normal Braxton-Inferior Normal Braxton-Tip Normal Chambers Value Units (Range) EF Bi-p [...] 01/06/2014 10:41:12 Images reviewed and interpretation verified [facility] Cardiac Ultrasound Laboratory Kenia Bauman MD ECHO ORDERABLES * EKG 12 Lead (01/06/2014 9:29 AM EDT) Ventricular rate 61 BPM MUSE SYSTEM Atrial Rate 61 BPM MUSE SYSTEM P-R Interval 210 ms MUSE SYSTEM QRS Duration 128 ms MUSE SYSTEM Q-T Interval 450 ms MUSE SYSTEM QTC Calculated (Bezet) 453 ms MUSE SYSTEM Calculated P Mccool 36 degrees MUSE SYSTEM Calculated R Mccool -51 degrees MUSE SYSTEM Calculated T Mccool -62 degrees MUSE SYSTEM INTERPRETATION Sinus rhythm [...] POC 104 60 - 199 mg/dL MONICA Chronon SystemsFORMERLY [facility] Comment: Supplemental ranges: <140 mg/dL before meals <180 mg/dL all other times of the day Blood specimen (specimen) 01/06/2014 8:28 AM EDT 01/06/2014 8:28 AM EDT Kenia Bauman MD POINT OF CARE TEST O RDERABLES [facility] Dropcam * XR chest routine PA & lateral (01/06/2014 6:05 AM EDT) Anatomical Region Laterality Modality Chest N/A Radiographic [place]ha[place] ging 01/06/2014 6:05 AM EDT Narrative 01/06/2014 [...] Bauman MD URINE ORDERABLES Performing Organization Address City/[facility]/ZIP Co de Phone Number [employer]ERDELMAR [employer]NIUM * Sodium, urine, random (01/06/2014 3:06 AM EDT) Sodium, Urine 85 mmol/L CERNER MILLENNIUM Urine specimen (specimen) 01/06/2014 3:06 AM EDT 01/06/2014 3:15 AM EDT Narrative Resulting Agency Comment Spec In Lab Kenia Bauman MD URINE ORDERABLES [facility] [employer] * (ABNORMAL) Urinalysis with microscopic (01/06/2014 3:06 [...] Urine Dipstick Hazy(A) Clear CERNER MILLENNIUM Specific [place] Urine Automated 1.019 1.002 - 1.030 CERNER [...] damage. Diagnosis of acute, evolving or recent CT requires a typical rise and gradual fall [...] consensus document of the Joint Society of Cardiology/Indian College of Cardiology Committee for the redefinition of myocardial infarction. ??Journal of the Indian College of Cardiology 2000; 36: 959-969] Creatine [...] ORDERABLE S Performing Organization Address [facility]/ZIP Co de Phone Number [facility] SERVICES[facility]LMAR BENITEZFORMERLY [facility] * (ABNORMAL) Magnesium (01/06/2014 2:50 AM EDT) Magnesium 0.67(L) 0.69 - 1.07 mmol/L [facility] Blood specimen (specimen) 01/06/2014 2:50 AM EDT 01/06/2014 2:58 AM EDT Narrative Resulting Agency Comment Spec In Lab Kenia Bauman MD CHEMISTRY ORDERABLES Performing Organization Address [facility] Co de Phone Number [facility] SERVICES[facility]LMAR [facility] * (ABNORMAL) Lipid panel (fasting) (01/06/2014 2:50 AM EDT) Cholesterol, Total 55 <=199 mg/dL [facility] Comment: Recommendations of the NCEP Adult Treatment Panel for the following risk cutoff thresholds for the [place] population: Desirable: <200 mg/dL Borderline High: 200-239 mg/dL High: > or = 240 mg/dL Triglyceride 148 <=149 mg/dL [facility] Comment: Reference Range: Normal triglycerides: ??<150 mg/dL Borderline high: ??150-199 mg/dL High: ??200-499 mg/dL Very high: ??>bd=032 mg/dL TATI 2001; 285(19):1648-4325 HDL Cholesterol 26(L) >=40 mg/dL [facility] Comment: Reference range: ??Low HDL: ?? < 40 mg/dL ??Normal: ?40-60 mg/dL ??Desirable: > 60 mg/dL TATI 2001; 285(19):3734-2873 LDL Cholesterol -1 <=99 mg/dL [facility] Comment: Reference range: ?? Optimal: ?<100 mg/dL ?? Near Optimal/Above Optimal: ?? 100-129 mg/dL ?? Borderline high: ?130-159 mg/dL ?? High: ? 160-189 mg/dL ?? Very high: ?>ns=876 mg/dL TATI 2001: 285(19):5468-7229 Cholesterol/HDL Ratio 2.1 ratio CERNER MILLENNIUM Comment: A Cholesterol to HDL ratio below 4:1 is desirable. ??Studies suggest that increased CAD risk occurs at ratios above 5 for females and above 6 for men. ? Indian Heart Association ??(http://www.americanheart.org) ? Yenny Int Med, 1994; 121:641 ? AM J Med, 1998; 105(1A):48S Blood specimen (specimen) 01/06/2014 2:50 AM EDT 01/06/2014 2:58 AM EDT Narrative Resulting Agency Comment Spec In Lab Kenia Bauman MD CHEMISTRY ORDERABLES [facility] * (ABNORMAL) Basic Metabolic Panel (non-fasting) (01/06/2014 2:50 AM EDT) [facility] Glucose 107 60 - 199 mg/dL [...] the following links into your internet browser. [email or web address] Blood specimen (specimen) 01/06/2014 2:50 AM EDT 01/06/2014 2:58 AM EDT Narrative Resulting Agency Comment Spec In Lab Kenia Bauman MD CHEMISTRY ORDERABLES Performing Organization Address City/[facility] Co de Phone Number MONICA PERALTA * EKG 12 Lead (01/06/2014 2:01 AM EDT) Ventricular rate 69 BPM MUSE SYSTEM Atrial Rate 69 BPM MUSE SYSTEM P-R Interval 212 ms MUSE SYSTEM QRS Duration 126 ms MUSE SYSTEM Q-T Interval 416 ms MUSE SYSTEM QTC Calculated (Bezet) 445 ms MUSE SYSTEM Calculated P Mccool 18 degrees MUSE SYSTEM Calculated R Mccool -55 degrees MUSE SYSTEM Calculated T Mccool -70 degrees MUSE SYSTEM INTERPRETATION Sinus rhythm with 1st degree A-V block Left anterior fascicular block Non-specific intra-ventricula r conduction block T wave abnormality, consider inferior ischemia T wave abnormality, consider anterolateral ischemia Abnormal ECG Confirmed by MD William, Navid ([id number]) on 01/07/2014 4:01:06 PM MUSE SYSTEM 01/06/2014 2:01 AM EDT 01/07/2014 4:01 PM EDT Unknown ECG ORDERABLES Performing Organization Address City/[facility] Co de Phone Number MUSE [...] Oral, 2 TIMES DAILY, First dose on 9/19/14 at 0900, Until Discontinued, Restricted to patients [...] to induce or maintain moderate sedation per [facility] Moderate Sedation Protocol, Not to exceed 50 [...] to induce or maintain moderate sedation per [facility] Moderate Sedation Protocol, Not to exceed 1 [...] RN) documented in this encounter Care Teams Automatic Steel Tie Adjuster Relationship Specialty Start Date End Date Jennifer Haro MD PCP - General 01/07/12 01/30/14 documented as of this encounter
--- OUTSIDE RECORDS SUMMARY | 2024-05-09 16:25 | XMS_ITS | Encounter Summary ---
Author Organization [facility] [place] [address] Care Team Providers Care Sole Ruffer Name Role Phone Dewayne Mcdermott MD Primary Care Provider Unavaila ble Reason for Visit * Reason Onset Date Comments Medication Refill 09/23/2013 Encounter Details Date Type Department Care Team (Late st Contact Info) Description 09/23/2013 Refill Cardiology at [address] [phone] Kit Self MD [facility] [place] [address] Medication Refill Social History Tobacco Use Types [...] AM EST Hospital Encounter [place] [phone] Arrived documented as of this encounter Visit Diagnoses Diagnosis ASCVD (arteriosclerotic cardiovascular disease)- Primary Unspecified cardiovascular disease documented in this encounter Care Teams Sole Ruffer Relationship Specialty Start Date End Date Dewayne Mcdermott MD PCP - General 01/07/12 01/30/14 documented as of this encounter
--- OUTSIDE RECORDS SUMMARY | 2024-05-09 16:25 | XMS_ITS | Encounter Summary ---
Author Organization [facility] [place] [address] Care Team Providers Care Mechanical Designer Name Role Phone Dewayne Mcdermott MD Primary Care Provider Court uribe Encounter Details Date Type Department Care Team (Late st Contact Info) Description 01/05/2014 Orders Only Cardiology at [address] [phone] Huseyin Espinoza MD [facility] [place] [address] Social History Tobacco Use Types Packs/Day Years [...] AM EST Hospital Encounter Non-Invasive [place] [phone] Arrived documented as of this encounter Procedures [...] is a Non-reportable exam Huseyin Espinoza MD [facility] FILM LIBRARY ORD ERABLES documented in this encounter Visit Diagnoses Not on filedocumented in this encounter Care Teams Mechanical Designer Relationship Specialty Start Date End Date Dewayne Mcdermott MD PCP - General 01/07/12 01/30/14 documented as of this encounter
--- OUTSIDE RECORDS SUMMARY | 2024-05-09 16:26 | XMS_ITS | Encounter Summary ---
Author Organization [facility] [place] [address] Care Team Providers Care Commercial Construction Project Manager Name Role Phone Dewayne Mcdermott MD Primary Care Provider Unavaila ble Reason for Visit * Reason Onset Date Comments Hematuria 05/16/2013 Encounter Details Date Type Department Care Team (Late st Contact Info) Description 05/16/2013 Telephone Cardiology at [address] [phone] Rosanna Morrow RN Hematuria Social History Tobacco [...] clear with time. Patient isrequesting records from [facility] .Forwarded daughter to speak with medical records. documented in this encounter Plan of Treatment Upcoming Encounters Date Type Department Care Team (Late st Contact Info) Description 06/15/2024 10:00 AM EST Hospital Encounter Non-[place]vasive [place] [phone] Arrived documented as of this encounter Visit Diagnoses Not on filedocumented in this encounter Care Teams Commercial Construction Project Manager Relationship Specialty Start Date End Date Dewayne Mcdermott MD PCP - General 01/07/12 01/30/14 documented as of this encounter
--- OUTSIDE RECORDS SUMMARY | 2024-05-09 16:26 | XMS_ITS | Encounter Summary ---
Author Organization [facility] [place] [address] Care Team Providers Care Degreaser Operator Name Role Phone Dewayne Mcdermott MD Primary Care Provider Unavaila ble Reason for Visit * Reason Comments Skin Check Encounter Details Date Type Department Care Team (Late st Contact Info) Description 05/27/2013 11:15 AM EST Office Visit Dermatology at [address] [phone] Adis Gonzalez MD [address] [place] [address], [facility] [address] Irritant contact dermatitis (Primary Dx) Social History [...] a 63-year-old gentleman who is originally from [place] but spent many years in [place] and [place] before coming up to this area in [...] he could choose to do in the [place]: Walking in the beautiful winter landscape, skiing, cross-country skiing, or snowshoeing, which would involve a minimal financial investment to get started, or going to the [place] to do some swimming. We discussed getting [...] AM EST Hospital Encounter Non-In[place] [phone] Arrived documented as of this encounter Visit Diagnoses Diagnosis Irritant contact dermatitis- Primary Contact dermatitis and other eczema, due to unspecified cause documented in this encounter Care Teams Degreaser Operator Relationship Specialty Start Date End Date Dewayne Mcdermott MD PCP - General 01/07/12 01/30/14 documented as of this encounter
--- OUTSIDE RECORDS SUMMARY | 2024-05-09 16:26 | XMS_ITS | Encounter Summary ---
Author Organization [facility] Address [facility] [place] [address] Care Team Providers Care Decating Machine Operator Name Role Phone Iggy Sevilla MD Primary Care Provider [phone] Encounter Details Date Type Department Care Team (Latest Contact Info) Description 12/17/2011 9:04 AM EDT - 12/17/2011 3:22 PM EDT Hospital Encounter [place] [address] Kyra Vyas MD Discharge Disposition: Home Social [...] occurs, please contact your MD/ Please call [phone] before 5pm with problems, questions or concerns. After 5pm call [phone] and ask to speak with the deckhand oyster dredge injection molding operator. Discharge instructions reviewed with patient who expresses understanding. * Patient Instructions* Kyra Vyas MD - 12/17/2011 10:04 AM EDT Please see Recommendations in the Provation procedure report which is documented in the procedural note in E-DH. * Attachments The following attachments cannot be sent through Care Everywhere. * UPPER GI ENDOSCOPY: WHAT TO EXPECT AT HOME (BERMUDIAN) documented in this encounter Medications at Time [...] AM EST Hospital Encounter Non-Invasive [place] [address] Arrived documented as of this encounter Procedures [...] 12:19 PM EDT) Surgical Pathology Report ? [facility] ? Provider: ?? KYRA VYAS ? Pt. Name: ?? SHAHNAZ HENDRIX ? Acc #: ?[id number] ?Pt. ? Col Date: ?? 12/17/2011 ? [...] ? C - Labeled/Fixative: Esophagus, formalin. ? [facility] ? Provider: ?? KYRA VYAS ? Pt. Name: ?? SHAHNAZ HENDRIX ? Acc #: ?[id number] ?Pt. ? Col Date: ?? 12/17/2011 ? [...] Kyra Vyas MD PATHOLOGY/CYTOLOGY O RDERABLES [facility] * Specimen to Pathology (surgical or derm) (12/17/2011 10:07 AM EDT) AP Specimen 12/17/2011 10:0 7 AM EDT 12/17/2011 10:07 AM EDT Narrative MONICA PERALTA - 12/17/2011 10:07 AM EDT Specimen requisition ordered. ??Separate Pathology report to follow Kyra Vyas MD PATHOLOGY/CYTOLOGY O [place] Performing Organization Address [facility] de Phone Number [facility] * Specimen to Pathology (surgical or derm) (12/17/2011 10:07 AM EDT) AP Specimen 12/17/2011 10:0 7 AM EDT 12/17/2011 10:07 AM EDT Narrative STACYDELMAR PERALTA - 12/17/2011 10:07 AM EDT Specimen requisition ordered. ??Separate Pathology report to follow Kyra Vyas MD PATHOLOGY/CYTOLOGY O [place] Performing Organization Address [facility] de Phone Number [facility] * Specimen to Pathology (surgical or derm) (12/17/2011 10:07 AM EDT) AP Specimen 12/17/2011 10:0 7 AM EDT 12/17/2011 10:07 AM EDT Narrative STACYDELMAR PERALTA - 12/17/2011 10:07 AM EDT Specimen requisition ordered. ??Separate Pathology report to follow Kyra Vyas MD PATHOLOGY/CYTOLOGY O [place] Performing Organization Address [facility] de Phone Number [facility] * POCT GLUCOSE LAB USE ONLY (12/17/2011 9:36 AM EDT) Glucose, POC 181 60 - 199 mg/dL [facility] Comment: Supplemental ranges: <110 mg/dL before meals <200 mg/dL all other times of the day Blood specimen (specimen) 12/17/2011 9:36 AM EDT 12/17/2011 9:36 AM EDT Narrative Authorizing Provider Result Angelique Vyas MD POINT OF CARE TEST O [place] MONICA PERALTA * UPPER GI ENDOSCOPY (12/17/2011 9:24 AM EDT) Pathologist [facility] UPPER GI ENDOSCOPY [facility] Endoscopy Patient Name: Shahnaz Hendrix ? Procedure Date: 12/17/2011 9:24 AM ? Date of : 1950 ? Age: 61 ? Order #: [id number] ? Procedure: ? Upper GI endoscopy Indications: ? Dyspepsia, Heartburn Providers: ? Kyra Vyas MD, Pavel Carreno RN, ? Loraine Stewart, Evening Sitter Referring MD: ?Dr. Mcdermott Requesting Provider: Baldemar [...] RN) documented in this encounter Care Teams Decating Machine Operator Relationship Specialty Start Date End Date Iggy Sevilla MD [address] [place] [address] [place] [address] PCP - General 10/22/10 01/06/12 documented as of this encounter
--- OUTSIDE RECORDS SUMMARY | 2024-05-09 16:26 | XMS_ITS | Encounter Summary ---
Author Organization [facility] Address [facility] [place] [address] Care Team Providers Care Director Corporate Security Name Role Phone Dewayne Mcdermott MD Primary Care Provider Unavaila ble Reason for Visit * Reason Onset Date Comments Other 02/25/2012 assess plan Encounter Details Date Type Department Care Team (Late st Contact Info) Description 02/25/2012 Telephone [place] [phone] Baldemar Crockett APRN [facility] [place] [address] Other (assess plan) Social History Tobacco Use [...] Encounter Non-Invasive [place] [address] Arrived documented as of this encounter Visit Diagnoses Not on filedocumented in this encounter Care Teams Director Corporate Security Relationship Specialty Start Date End Date Dewayne Mcdermott MD PCP - General 01/07/12 01/30/14 documented as of this encounter
--- OUTSIDE RECORDS SUMMARY | 2024-05-09 16:26 | XMS_ITS | Encounter Summary ---
Author Organization [facility] [place] [address] Care Team Providers Care Chemical Laboratory Scientist Name Role Phone Dewayne Mcdermott MD Primary Care Provider Unavaila ble Reason for Visit * Reason Onset Date Comments Other 02/26/2012 no heartburn Encounter Details Date Type Department Care Team (Late st Contact Info) Description 02/26/2012 Telephone [place] [phone] Baldemar Crockett APRN [facility] DR GASTROENTEROLOGY DEPT. [place], [place] [phone] Other (no heartburn) Social History Tobacco Use [...] AM EST Hospital Encounter Non-Invasive [place] [address] Arrived documented as of this encounter Visit Diagnoses Not on filedocumented in this encounter Care Teams Chemical Laboratory Scientist Relationship Specialty Start Date End Date Dewayne Mcdermott MD PCP - General 01/07/12 01/30/14 documented as of this encounter
--- OUTSIDE RECORDS SUMMARY | 2024-05-09 16:26 | XMS_ITS | Encounter Summary ---
Author Organization [facility] Address [facility] [place] [address] Care Team Providers Care Income Tax Return Preparer Name Role Phone Dewayne Mcdermott MD Primary Care Provider Unavaila ble Reason for Visit * Reason Comments Coronary Artery Disease Encounter Details Date Type Department Care Team (Late st Contact Info) Description 02/08/2013 8:00 AM EDT Office Visit [address] [phone] Mynor Will MD [facility] [place] [address] CAD (coronary artery disease) (Primary Dx) Social [...] AM EST Hospital Encounter Non[place] [address] Arrived documented as of this encounter Visit Diagnoses Diagnosis CAD (coronary artery disease)- Primary Coronary atherosclerosis of unspecified type of vessel, [place] or graft documented in this encounter Care Teams Income Tax Return Preparer Relationship Specialty Start Date End Date Dewayne Mcdermott MD PCP - General 01/07/12 01/30/14 documented as of this encounter
--- OUTSIDE RECORDS SUMMARY | 2024-05-09 16:26 | XMS_ITS | Encounter Summary ---
Author Organization [facility] [place] [address] Care Team Providers Care Maintenance Carpenter Name Role Phone Unknown Primary Care Provider Unavailabl e Reason for Visit * Reason Comments Coronary Artery Disease Encounter Details Date Type Department Care Team (Late st Contact Info) Description 09/24/2010 2:30 PM EDT Office Visit [address] [phone] Mynor Will MD [facility] [place] [address] CAD (coronary artery disease) (Primary Dx) Social [...] Will - 09/24/2010 2:32 PM EDT [facility] att documented in this encounter Plan of Treatment Upcoming Encounters Date Type Department Care Team (Late st Contact Info) Description 06/15/2024 10:00 AM EST Hospital Encounter Non-Invasive [place] [address] Arrived documented as of this encounter Visit Diagnoses Diagnosis CAD (coronary artery disease)- Primary Coronary atherosclerosis of unspecified type of vessel, [place] or graft documented in this encounter Care Teams Maintenance Carpenter Relationship Specialty Start Date End Date Unknown None PCP - General 09/24/10 10/21/10 documented as of this encounter
--- OUTSIDE RECORDS SUMMARY | 2024-05-09 16:26 | XMS_ITS | Encounter Summary ---
Author Organization [facility] Address [facility] [place] [address] Care Team Providers Care Potato Chip Packaging Machine Operator Name Role Phone Jennifer Haro MD Primary Care Provider Court ble Encounter Details Date Type Department Care Team (Late st Contact Info) Description 05/13/2013 10:55 AM EST - 05/13/2013 11:55 AM EST Surgery [place] [id number] Jennifer Curry MD [facility] [place] [address] CARDIAC CATHETERIZATION Social History Tobacco Use Types [...] appointments: During 8am-5pm Thursday through Thursday call [phone] to speak with a nurse in the cardiology clinic All other times call [phone] and ask to speak to the social work msw computer applications developer. Return to work: One week Driving: No driving for 48 hours after catheterization. Follow up Appointments: PCP Call for appointment in 1-2 weeks. Bar Tacker Sewing Machine You should be seen in 3-4 weeks for follow up. Follow up with Dr Nicolette maguire jun 03. Home oxygen therapy: N/A Arrangements for VNA/home care: none * Attachments The following attachments cannot be sent through Care Everywhere. * CHEST PAIN ([place]): AFTER YOUR VISIT ([place]) * CARDIAC REHABILITATION: AFTER YOUR VISIT ([place]) * PERCUTANEOUS CORONARY INTERVENTION: WHAT TO EXPECT AT HOME ([place]) documented in this encounter Medications at Time [...] mg by mouth nightly as needed. 06/14/2013 [place]-3 Fatty Acids (FISH OIL) 500 mg Cap Take by mouth daily. 01/14/2016 lamotrigine (LAMICTAL) 100 mg tablet Take 200 mg by mouth daily. 09/01/2018 alprazolam (XANAX XR) 3 mg 24 hr tablet Take 3 mg by mouth nightly. 09/18/2020 [facility] cmb #[id number] (PROBIOTIC & ACIDOPHILUS) 300-250 million cell-mg Cap [...] VS documented in doc flow sheets from [id number]. * Shyanne Casillas RN - 05/13/2013 3:53 PM EST Pt arrived from cardiac cath recovery on stretcher at 1430. Alert and oriented,denies chest pain ordyspnea, right groin site clean and intact, + pedal pulse, bus monitor shows normal sinus rhythm with [...] - 05/13/2013 1:17 PM EST Marquez Hendrix [id number] 05/13/2013 62 y.o. Admission History and Physical [...] anxiety bc it reminds him of prior [place] pain. At cath he was found to [...] and clopidogrel per protocol. Dagoberto Amaral MD Caustic Preparer Pager# [phone] 05/13/2013 * Raji Novak - 05/13/2013 10:50 [...] anxiety bc it reminds him of prior [place] pain. Filed Vitals: 05/13/13 1046 BP: 110/70 [...] 05/16/2013 11:07 PM ESTAssociated Order(s): SCAN DOC: CERTIFIED REGISTERED DENTAL ASSISTANT documented in this encounter Miscellaneous Notes * Miscellaneous - Provider, Scanning - 05/16/2013 11:07 PM EST * Miscellaneous - Provider, Scanning - 05/13/2013 2:23 PM EST * Discharge Summary - Melvinsolangearsh Baldemar M - 05/13/2013 1:26 PM EST Inpatient Cardiology - Discharge Summary Patient Name: Marquez Hendrix Patient Age: 62 y.o. Birthdate: 1950 Admit date: 05/13/2013 Discharge date: 05/14/2013 Attending Physician: Kit Self MD Discharge Diagnoses (Hospital Problems) and Secondary Diagnoses (Chronic Problems): Active Hospital Problems Diagnosis ??? ASCVD (arteriosclerotic cardiovascular disease) Priority: High ?? Heart catheterization in [facility] in [...] Nuclear stress test at [facility] in [place], [place] May 02, 2013 during which he developed left shoulder and arm discomfort during submaximal exercise on the treadmill and after which he was converted to a pharmacologic test; nuclear imaging showed ejection fraction of 45% with a partially reversible inferior defect ?? Cath [facility] 05/13/2013: 3.0 X 12 mm JON to [...] anxiety bc it reminds him of prior [place] pain. At cath he was found to [...] 10 mg by mouth nightly as needed. [place]-3 Fatty Acids (FISH OIL) 500 mg Cap Take by mouth daily. multivitamin capsule 1 capsule Take 1 capsule by mouth daily. LANCETS MISC by Misc.(Non-Drug; Combo Route) route. lamotrigine (LAMICTAL) 100 mg tablet 100 mg Take 100 mg by mouth daily. alprazolam (XANAX XR) 3 mg 24 hr tablet 3 mg Take 3 mg by mouth every morning. lactobac cmb #[id number] (PROBIOTIC & ACIDOPHILUS) 300-250 million cell-mg Cap [...] appointments: During 8am-5pm Thursday through Thursday call [phone] to speak with a nurse in the cardiology clinic All other times call [phone] and ask to speak to the social work msw computer applications developer. Return to work: One week Driving: No driving for 48 hours after catheterization. Follow up Appointments: PCP Call for appointment in 1-2 weeks. Bar Tacker Sewing Machine You should be seen in 3-4 weeks for follow up. Follow up with Dr Nicolette maguire jun 03. Home oxygen therapy: N/A Arrangements for VNA/home care: none General Instructions None Future Appointments and Orders Future Appointments: Provider: Department: Dept Phone: Center: 06/14/2013 9:40 AM Kit Self MD Cardiology [phone] [place] Joint Appt Nurse One Cardiology NAHUN Corrales [facility] [phone] [place] Future Orders Please Complete By Expires Cardiac [...] Information: Dr. Antoinette Amaral Section of Cardiology [facility] [phone] Discharge References/Attachments: Discharge References/Attachments None Signed: Baldemar Martínez DATE: 05/14/2013 documented in this encounter Plan of Treatment Upcoming Encounters Date Type Department Care Team (Late st Contact Info) Description 06/15/2024 10:00 AM EST Hospital Encounter Non-Invasive [place] [address] Arrived documented as of this encounter Procedures Procedure Name Priority Date/Time Associated Diagnosis Comments CERTIFIED REGISTERED DENTAL ASSISTANT SCAN 05/16/2013 11:07 PM EST POCT GLUCOSE Routine 05/14/2013 12:08 PM EST POCT GLUCOSE Routine 05/14/2013 7:57 AM EST EKG 12-LEAD Routine 05/14/2013 7:40 AM EST CAD (coronary artery disease) BMP W/FASTING GLUCOSE Routine 05/14/2013 3:30 AM EST DIFFERENTIAL, AUTOMATED Routine 05/14/2013 3:30 AM EST CARDIAC ENZYMES ([facility]/CGP) Routine 05/14/2013 3:30 AM EST CBC (WITH DIFF) Routine 05/14/2013 3:30 AM EST POCT GLUCOSE Routine 05/14/2013 3:10 AM EST POCT GLUCOSE Routine 05/13/2013 11:40 PM EST POCT GLUCOSE Routine 05/13/2013 10:14 PM EST POCT GLUCOSE Routine 05/13/2013 8:52 PM EST POCT GLUCOSE Routine 05/13/2013 3:55 PM EST EKG 12-LEAD Routine 05/13/2013 1:57 PM EST CAD (coronary artery disease) CARDIAC ENZYMES ([facility]/CGP) STAT 05/13/2013 1:00 PM EST POCT GLUCOSE Routine 05/13/2013 10:46 AM EST documented in this encounter Results * SCAN DOC: CERTIFIED REGISTERED DENTAL ASSISTANT (05/16/2013 11:07 PM EST) Anatomical Region Laterality Modality Other Narrative 05/16/2013 11:09 PM EST Procedure Note Provider, Scanning - 05/16/2013 11:07 PM EST Scanning Provider MEDIA MGR SCAN EXT O RDR/RSLT * (ABNORMAL) POCT Glucose (05/14/2013 12:08 PM EST) Glucose, POC 222(H) 60 - 199 mg/dL [facility] Comment: Supplemental ranges: <110 mg/dL before meals <200 mg/dL all other times of the day Blood specimen (specimen) 05/14/2013 12:08 PM EST 05/14/2013 12:08 PM EST Kit Self MD POINT OF CARE TEST O RDERALOREE Performing Organization Address [facility] de Phone Number [facility] * POCT Glucose (05/14/2013 7:57 AM EST) Glucose, POC 85 60 - 199 mg/dL [facility] Comment: Supplemental ranges: <110 mg/dL before meals <200 mg/dL all other times of the day Blood specimen (specimen) 05/14/2013 7:57 AM EST 05/14/2013 7:57 AM EST Kit Self MD POINT OF CARE TEST O [place] Performing Organization Address [facility] Phone Number [facility] * EKG 12 Lead (05/14/2013 7:40 AM EST) Pathologist [facility] Ventricular rate 72 BPM MUSE SYSTEM Atrial Rate 72 BPM MUSE SYSTEM P-R Interval 208 ms MUSE SYSTEM QRS Duration 122 ms MUSE SYSTEM Q-T Interval 416 ms MUSE SYSTEM QTC Calculated (Bezet) 455 ms MUSE SYSTEM Calculated P [place] 67 degrees MUSE SYSTEM Calculated R [place] -59 degrees MUSE SYSTEM Calculated T [place] -12 degrees MUSE SYSTEM INTERPRETATION Sinus rhythm [...] of Diabetes Mellitus, Position Statement from the [place] Diabetes Association. ??Diabetes Care, Volume 33, Supplement 1, Apr 2009 Blood Urea Nitrogen 21(H) 10 - 20 mg/dL [facility] MILLENNIUM Creatinine 0.99 0.80 - 1.50 mg/dL CERNER MILLENNIUM Comment: Please note that the pediatric reference intervals supplied above were not validated at [facility]. Results from pediatric patients should be interpreted [...] the following links into your internet browser. http://[email or web address].gov/lab-evaluation.shtml http://www.kidney.org/professionals/ Blood specimen (specimen) 05/14/2013 3:30 AM EST 05/14/2013 3:32 AM EST Narrative Resulting Agency Comment Spec In Lab Jennifer Curry MD CHEMISTRY ORDERABLES Performing Organization Address [facility] de Phone Number MONICA PERALTA * (ABNORMAL) Cardiac Enzymes (05/14/2013 3:30 AM EST) Troponin-T 0.05(H) <=0.03 ng/mL MONICA P21 Comment: 0.03 ng/mL: Represents the 99th percentile upper reference limit for normals. >0.03 ng/mL: Elevated cardiac troponin T level indicative of myocardial damage. Diagnosis of acute, evolving or recent [place] requires a typical rise and gradual fall [...] consensus document of the Joint Society of Cardiology/[place] College of Cardiology Committee for the redefinition of myocardial infarction. ??Journal of the [place] College of Cardiology 2000; 36: 959-969] Creatine Kinase 62 0 - 200 unit/L MONICA P21 Blood specimen (specimen) 05/14/2013 3:30 AM EST 05/14/2013 3:32 AM EST Narrative Resulting Agency Comment Spec In Lab Jennifer Curry MD CHEMISTRY ORDERABLES Performing Organization Address [facility] de Phone Number MONICA PERALTA * (ABNORMAL) CBC (with Diff) (05/14/2013 3:30 AM EST) White Blood Cell 5.9 4.0 - 10.0 x10(3)/mc L [facility] Red Blood Cell 4.24(L) 4.63 - 6.08 x10(6)/mc L [facility] MILLENNIUM Hemoglobin 12.2(L) 13.7 - 17.5 gm/dL [facility] MILLENNIUM Hematocrit 37.4(L) 40.0 - 51.0 % [facility] MILLENNIUM Mean Cell Volume 88.2 79.0 - 92.0 fL [facility] MILLENNIUM Mean Cell Hemoglobin 28.8 25.6 - 32.2 pg CERNER MILLENNIUM Mean Cell Hemoglobin Concentration 32.6 32.0 - 36.5 gm/dL [facility] MILLENNIUM Platelet 185 145 - 370 x10(3)/mc L [facility] MILLENNIUM RDW Standard Deviation 45.7 35.0 - 46.0 fL [facility] MILLENNIUM RDW coefficient of variation 14.2 10.9 - 14.4 % [facility] MILLENNIUM Mean Platelet Volume 9.6 9.0 - 12.0 fL [facility] Blood specimen (specimen) 05/14/2013 3:30 AM EST 05/14/2013 3:32 AM EST Narrative Resulting Agency Comment Spec In Lab Jennifer Curry MD HEMATOLOGY ORDERABLE S Performing Organization Address [facility] Co de Phone Number [facility] * POCT Glucose (05/14/2013 3:10 AM EST) Glucose, POC 87 60 - 199 mg/dL [facility] Comment: Supplemental ranges: <110 mg/dL before meals <200 mg/dL all other times of the day Blood specimen (specimen) 05/14/2013 3:10 AM EST 05/14/2013 3:10 AM EST Kit Self MD POINT OF CARE TEST O RDERABLES Performing Organization Address [facility] Co de Phone Number [facility] * POCT Glucose (05/13/2013 11:40 PM EST) Glucose, POC 141 60 - 199 mg/dL [facility] Comment: Supplemental ranges: <110 mg/dL before meals <200 mg/dL all other times of the day Blood specimen (specimen) 05/13/2013 11:40 PM EST 05/13/2013 11:40 PM EST Kit Self MD POINT OF CARE TEST O RDERABLES Performing Organization Address [facility] de Phone Number [facility] * (ABNORMAL) POCT Glucose (05/13/2013 10:14 PM EST) Glucose, POC 224(H) 60 - 199 mg/dL [facility] Comment: Supplemental ranges: <110 mg/dL before meals <200 mg/dL all other times of the day Blood specimen (specimen) 05/13/2013 10:14 PM EST 05/13/2013 10:14 PM EST Kit Self MD POINT OF CARE TEST O CARLOSERALOREE Performing Organization Address [facility] Phone Number [facility] * (ABNORMAL) POCT Glucose (05/13/2013 8:52 PM EST) Glucose, POC 318(H) 60 - 199 mg/dL [facility] Comment: Supplemental ranges: <110 mg/dL before meals <200 mg/dL all other times of the day Blood specimen (specimen) 05/13/2013 8:52 PM EST 05/13/2013 8:52 PM EST Kit Self MD POINT OF CARE TEST O [place] Performing Organization Address [facility] Phone Number [facility] * POCT Glucose (05/13/2013 3:55 PM EST) Glucose, POC 90 60 - 199 mg/dL [facility] Comment: Supplemental ranges: <110 mg/dL before meals <200 mg/dL all other times of the day Blood specimen (specimen) 05/13/2013 3:55 PM EST 05/13/2013 3:55 PM EST Kit Self MD POINT OF CARE TEST O RDERABLES Performing Organization Address [facility] de Phone Number [facility] [employer] * EKG 12 Lead (05/13/2013 1:57 PM EST) Pathologist [facility] Ventricular rate 59 BPM MUSE SYSTEM Atrial Rate 59 BPM MUSE SYSTEM P-R Interval 224 ms MUSE SYSTEM QRS Duration 132 ms MUSE SYSTEM Q-T Interval 438 ms MUSE SYSTEM QTC Calculated (Bezet) 433 ms MUSE SYSTEM Calculated P [place] 37 degrees MUSE SYSTEM Calculated R [place] -61 degrees MUSE SYSTEM Calculated T [place] -29 degrees MUSE SYSTEM INTERPRETATION Sinus bradycardia with 1st degree A-V block Left axis deviation Non-specific intra-ventricula r conduction block T wave abnormality, consider anterolateral ischemia Abnormal ECG Confirmed by MD William, Navid ([id number]) on 05/14/2013 3:52:55 PM MUSE SYSTEM 05/13/2013 1:57 PM EST 05/14/2013 3:52 PM EST Jennifer Curry MD ECG ORDERABLES Performing Organization Address [facility] de Phone Number MUSE SYSTEM * Cardiac Enzymes (05/13/2013 1:00 PM EST) [facility] Troponin-T <0.03 <=0.03 ng/mL [facility] [employer] [facility]ET[facility] [employer]OENIXOncon[employer] Comment: 0.03 ng/mL: Represents the 99th percentile upper reference limit for normals. >0.03 ng/mL: Elevated cardiac troponin T level indicative of myocardial damage. Diagnosis of acute, evolving or recent [place] requires a typical rise and gradual fall [...] consensus document of the Joint Society of Cardiology/[place] College of Cardiology Committee for the redefinition of myocardial infarction. ??Journal of the [place] College of Cardiology 2000; 36: 959-969] Creatine Kinase 52 0 - 200 unit/L CERNER P21 Blood specimen (specimen) 05/13/2013 1:00 PM EST 05/13/2013 1:19 PM EST Narrative Resulting Agency Comment Spec In Lab Kit Self MD CHEMISTRY ORDERABLES [facility] PERALTA * POCT Glucose (05/13/2013 10:46 AM EST) Glucose, POC 113 60 - 199 mg/dL [facility] Comment: Supplemental ranges: <110 mg/dL before meals <200 mg/dL all other times of the day Blood specimen (specimen) 05/13/2013 10:46 AM EST 05/13/2013 10:46 AM EST Kit Self MD POINT OF CARE TEST O RDERABLES Performing Organization Address [facility] Co de Phone Number MONICA PERALTA documented in this encounter Visit Diagnoses Diagnosis ASCVD (arteriosclerotic cardiovascular disease)- Primary Unspecified cardiovascular disease CAD (coronary artery disease) Coronary atherosclerosis of unspecified type of vessel, [place] or graft Atherosclerotic heart disease of [place] coronary artery with unstable angina pectoris Coronary atherosclerosis of [place] coronary artery ASCVD (arteriosclerotic cardiovascular disease) Unspecified cardiovascular disease CAD (coronary artery disease) Coronary atherosclerosis of unspecified type of vessel, [place] or graft Atherosclerotic heart disease of [place] coronary artery with unstable angina pectoris Coronary atherosclerosis of [place] coronary artery documented in this encounter Administered [...] See comment - Comment: 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 EVP [employer]ATE[employer]) 0900 (Given - Provider: Shyanne Casillas RN) [...] See comment - Comment: 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 [employer]) 0900 (Given - Provider: Shyanne Casillas RN) lisinopril (PRINIVIL;ZESTRIL) tablet 10 mg (CANCELED) 10 mg, Oral, DAILY, First dose on Thu05/13/13 at 1600, Until Discontinued, Routine 1600 (Not Given - Provider: Ely Villalpando RN - Reason: See comment - Comment: taken precinct captain) 0900 (Given - Provider: Shyanne Casillas RN) nadolol (CORGARD) tablet 20 mg (CANCELED) 20 mg, Oral, DAILY, First dose on Thu05/13/13 at 1500, Until Discontinued, Routine 1500 (Not Given - Provider: Ely Villalpando RN - Reason: See comment - Comment: took [employer]P [employer]ATE[employer]) 0900 (Given - Provider: Shyanne Casillas RN) [...] (Intra-Procedure), Routine 1135 (Given - Provider: William Espnioza RN)1151 (Given - Provider: Sravani Chatman RN) [...] NAHUN) documented in this encounter Care Teams Potato Chip Packaging Machine Operator Relationship Specialty Start Date End Date Jennifer Haro MD PCP - General 01/07/12 01/30/14 documented as of this encounter
--- OUTSIDE RECORDS SUMMARY | 2024-05-09 16:26 | XMS_ITS | Encounter Summary ---
Author Organization [facility] Address [facility] [place] [address] Care Team Providers Care Cooler Conveyor Loader Name Role Phone Iggy Sevilla MD Primary Care Provider [phone] Reason for Visit * Reason Comments Coronary Artery Disease Encounter Details Date Type Department Care Team (Late st Contact Info) Description 01/06/2012 1:15 PM EDT Office Visit [address] [address] Mynor Will MD [facility] [place] [address] CAD (coronary artery disease) (Primary Dx) Social [...] AM EST Hospital Encounter Non-[place] [address] Arrived documented as of this encounter Visit Diagnoses Diagnosis CAD (coronary artery disease)- Primary Coronary atherosclerosis of unspecified type of vessel, [place] or graft documented in this encounter Care Teams Cooler Conveyor Loader Relationship Specialty Start Date End Date Iggy Sevilla MD [address] [place] [address] [place] [address] PCP - General 10/22/10 01/06/12 documented as of this encounter
--- OUTSIDE RECORDS SUMMARY | 2024-05-09 16:26 | XMS_ITS | Encounter Summary ---
Author Organization [facility] [place] [address] Care Team Providers Care Dialysis Social Worker Name Role Phone Iggy Sevilla MD Primary Care Provider [phone] Encounter Details Date Type Department Care Team (Late st Contact Info) Description 11/17/2011 Telephone [place] [address] Peyton Cantu RN Social History [...] for omeprazole written this AM brought to diagnostic medical sonographer. Call to pt to confirm pharmacy name and location. Call to pharmacy to call in prescription. documented in this encounter Plan of Treatment Upcoming Encounters Date Type Department Care Team (Late st Contact Info) Description 06/15/2024 10:00 AM EST Hospital Encounter Non-[place] [address] Arrived documented as of this encounter Visit Diagnoses Not on filedocumented in this encounter Care Teams Dialysis Social Worker Relationship Specialty Start Date End Date Iggy Sevilla MD [address] [place] [address] [place] [address] PCP - General 10/22/10 01/06/12 documented as of this encounter
--- OUTSIDE RECORDS SUMMARY | 2024-05-09 16:26 | XMS_ITS | Encounter Summary ---
Author Organization [facility] [address] Care Team Providers Care Designer Architect Name Role Phone Iggy Sevilla MD Primary Care Provider [phone] Encounter Details Date Type Department Care Team (Late st Contact Info) Description 12/17/2011 10:30 AM EDT - 12/17/2011 11:30 AM EDT [place] [id number] Kyra Vyas MD EGD WITH BIOPSY (WRVU [...] encounter Discharge Instructions * Discharge Instructions* Maura Brynat RN - 12/17/2011 10:47 AM EDT You [...] occurs, please contact your MD/ Please call [phone] before 5pm with problems, questions or concerns. After 5pm call [phone] and ask to speak with the drafter civil senior web applications developer. Discharge instructions reviewed with patient who expresses understanding. * Patient Instructions* Kyra Vyas MD - 12/17/2011 10:04 AM EDT Please see Recommendations in the Provation procedure report which is documented in the procedural note in E-DH. * Attachments The following attachments cannot be sent through Care Everywhere. * UPPER GI ENDOSCOPY: WHAT TO EXPECT AT HOME (BANGLADESHI) documented in this encounter Medications at Time [...] AM EST Hospital Encounter [place] [address] Arrived documented as of this [...] PM EDT) Surgical Pathology Report ? [facility] ? Provider: ?? KYRA VYAS ? Pt. Name: ?? ALEXANDRUYUANSHAHNAZ ? Acc #: ?[id number] ?Pt. ? Col Date: ?? 12/17/2011 ? [...] C - Labeled/Fixative: Esophagus, formalin. ? [facility] ? Provider: ?? KYRA VYAS ? Pt. Name: ?? PAMELASHAHNAZ ? Acc #: ?[id number] ?Pt. ? Col Date: ?? 12/17/2011 ? [...] Z-line at 39 cm, ? [facility] 12/17/2011 12:1 9 PM EDT Kyra Vyas MD PATHOLOGY/CYTOLOGY O RDERABLES Performing Organization Address City/State/[facility] Co mi Phone Number [facility] * Specimen to Pathology (surgical or derm) (12/17/2011 10:07 AM EDT) AP Specimen 12/17/2011 10:0 7 AM EDT 12/17/2011 10:07 AM EDT Narrative [facility] PERALTA - 12/17/2011 10:07 AM EDT Specimen requisition ordered. ??Separate Pathology report to follow Kyra Vyas MD PATHOLOGY/CYTOLOGY O [place] Performing Organization Address [facility] de Phone Number [facility] * Specimen to Pathology (surgical or derm) (12/17/2011 10:07 AM EDT) AP Specimen 12/17/2011 10:0 7 AM EDT 12/17/2011 10:07 AM EDT Narrative [facility] - 12/17/2011 10:07 AM EDT Specimen requisition ordered. ??Separate Pathology report to follow Kyra Vyas MD PATHOLOGY/CYTOLOGY O [place] Performing Organization Address [facility] Phone Number [facility] * Specimen to Pathology (surgical or derm) (12/17/2011 10:07 AM EDT) AP Specimen 12/17/2011 10:0 7 AM EDT 12/17/2011 10:07 AM EDT Narrative [facility]ICA PERALTA - 12/17/2011 10:07 AM EDT Specimen requisition ordered. ??Separate Pathology report to follow Kyra Vyas MD PATHOLOGY/CYTOLOGY O [place] Performing Organization Address [facility] de Phone Number [facility] * POCT GLUCOSE LAB USE ONLY (12/17/2011 9:36 AM EDT) Glucose, POC 181 60 - 199 mg/dL [facility] Comment: Supplemental ranges: <110 mg/dL before meals <200 mg/dL all other times of the day Blood specimen (specimen) 12/17/2011 9:36 AM EDT 12/17/2011 9:36 AM EDT Kyra Vyas MD POINT OF CARE TEST O RDMARY [facility] * UPPER GI ENDOSCOPY (12/17/2011 9:24 AM EDT) Pathologist [facility] UPPER GI ENDOSCOPY [facility] Endoscopy Patient Name: Shahnaz Hendrix ? Procedure Date: 12/17/2011 9:24 AM ? N: [id number] ? Date of : 1950 ? Age: 61 ? Order #: [id number] ? Procedure: ? Upper GI endoscopy Indications: ? Dyspepsia, Heartburn Providers: ? Kyra Vyas MD, Pavel Carreno RN, ? Loraine Stewart, Screw Machine Operator Swiss Type Referring MD: ?Dr. Mcdermott Requesting Provider: Baldemar [...] EDT Iggy Sevilla MD [facility] Performing Organization Address City/State/[facility] Co de Phone Number PROVATION [...] RN) documented in this encounter Care Teams Designer Architect Relationship Specialty Start Date End Date Iggy Sevilla MD [address] [place] [id number] PCP - General 10/22/10 01/06/12 documented as of this encounter
--- OUTSIDE RECORDS SUMMARY | 2024-05-09 16:26 | XMS_ITS | Encounter Summary ---
Author Organization [facility] [place] [address] Care Team Providers Care Mineral Industry Teacher Name Role Phone Jennifer Haro MD Primary Care Provider Court uribe Encounter Details Date Type Department Care Team (Latest Contact Info) Description 05/13/2013 2:27 PM EST - 05/14/2013 2:18 PM EST Hospital Encounter Short Stay Unit at [place] [phone] Jennifer Curry MD [facility] [place] [address] Kit Self MD [facility] [place] [address] CAD (coronary artery disease); ASCVD (arteriosclerotic cardiovascular disease); Atherosclerotic heart disease of [place] coronary artery with unstable angina pectoris Discharge [...] appointments: During 8am-5pm Thursday through Thursday call [phone] to speak with a nurse in the cardiology clinic All other times call [phone] and ask to speak to the rebar worker correctional sergeant. Return to work: One week Driving: No driving for 48 hours after catheterization. Follow up Appointments: PCP Call for appointment in 1-2 weeks. Paradi Tender You should be seen in 3-4 weeks for follow up. Follow up with Dr Nicolette maguire jun 03. Home oxygen therapy: N/A Arrangements for VNA/home care: none * Attachments The following attachments cannot be sent through Care Everywhere. * CHEST PAIN (ANGINA): AFTER YOUR VISIT ([place]) * CARDIAC REHABILITATION: AFTER YOUR VISIT ([place]) * PERCUTANEOUS CORONARY INTERVENTION: WHAT TO EXPECT AT HOME ([place]) documented in this encounter Medications at Time [...] mg by mouth nightly as needed. 06/14/2013 Woodson-3 Fatty Acids (FISH OIL) 500 mg Cap Take by mouth daily. 01/14/2016 lamotrigine (LAMICTAL) 100 mg tablet Take 200 mg by mouth daily. 09/01/2018 alprazolam (XANAX XR) 3 mg 24 hr tablet Take 3 mg by mouth nightly. 09/18/2020 [id number] (PROBIOTIC & ACIDOPHILUS) 300-250 million cell-mg Cap [...] VS documented in doc flow sheets from [id number]. * Shyanne Casillas RN - 05/13/2013 3:53 PM EST Pt arrived from cardiac cath recovery on stretcher at 1430. Alert and oriented,denies chest pain ordyspnea, right groin site clean and intact, + pedal pulse, property assessment monitor shows normal sinus rhythm with frequent [...] - 05/13/2013 1:17 PM EST Marquez Hendrix [id number] 05/13/2013 62 y.o. Admission History and Physical [...] anxiety bc it reminds him of prior MA pain. At cath he was found to [...] and clopidogrel per protocol. Dagoberto Amaral MD Senior Human Resources Representative Pager# [phone] 05/13/2013 * Raji Novak - 05/13/2013 10:50 [...] anxiety bc it reminds him of prior MA pain. Filed Vitals: 05/13/13 1046 BP: 110/70 [...] 05/16/2013 11:07 PM ESTAssociated Order(s): SCAN DOC: MECHANICAL HANDYMAN documented in this encounter Miscellaneous Notes * [...] Priority: High ?? Heart catheterization in [facility] in 2007 with placement of a stent in an unspecified vessel ?? Repeat heart catheterization in 2008 with placement of stents to both the LAD and circumflex ?? Followup heart catheterization in 2008 showing stable results in both vessels ?? Her current chest discomfort in a somewhat atypical pattern beginning fall ?? Nuclear stress test at [facility] in [place], [place] May 02, 2013 during which he developed left shoulder and arm discomfort during submaximal exercise on the treadmill and after which he was converted to a pharmacologic test; nuclear imaging showed ejection fraction of 45% with a partially reversible inferior defect ?? Cath [facility] 05/13/2013: 3.0 X 12 mm JON to [...] anxiety bc it reminds him of prior MA pain. At cath he was found to [...] 10 mg by mouth nightly as needed. Woodson-3 Fatty Acids (FISH OIL) 500 mg Cap Take by mouth daily. multivitamin capsule 1 capsule Take 1 capsule by mouth daily. LANCETS MISC by Mis.(Non-Drug; Combo Route) route. lamotrigine (LAMICTAL) 100 mg tablet 100 mg Take 100 mg by mouth daily. alprazolam (XANAX XR) 3 mg 24 hr tablet 3 mg Take 3 mg by mouth every morning. lactobac cmb #[id number] (PROBIOTIC & ACIDOPHILUS) 300-250 million cell-mg Cap [...] appointments: During 8am-5pm Thursday through Thursday call [phone] to speak with a nurse in the cardiology clinic All other times call [phone] and ask to speak to the rebar worker correctional sergeant. Return to work: One week Driving: No driving for 48 hours after catheterization. Follow up Appointments: PCP Call for appointment in 1-2 weeks. Paradi Tender You should be seen in 3-4 weeks for follow up. Follow up with Dr iNcolette maguire jun 03. Home oxygen therapy: N/A Arrangements for VNA/home care: none General Instructions None Future Appointments and Orders Future Appointments: Provider: Department: Dept Phone: Center: 06/14/2013 9:40 AM Kit Self MD Cardiology [phone] [facility] Joint Appt Nurse One Cardiology IntakeNAHUN [phone] [facility] Future Orders Please Complete By Expires Cardiac [...] Information: Dr. Antoinette Amaral Section of Cardiology [facility] [phone] Discharge References/Attachments: Discharge References/Attachments None Signed: Baldemar Martínez DATE: 05/14/2013 documented in this encounter Plan of Treatment Upcoming Encounters Date Type Department Care Team (Late st Contact Info) Description 06/15/2024 10:00 AM EST Hospital Encounter [place] [address] Arrived documented as of this encounter Procedures Procedure Name Priority Date/Time Associated Diagnosis Comments MECHANICAL HANDYMAN SCAN 05/16/2013 11:07 PM EST POCT GLUCOSE Routine 05/14/2013 12:08 PM EST POCT GLUCOSE Routine 05/14/2013 7:57 AM EST EKG 12-LEAD Routine 05/14/2013 7:40 AM EST CAD (coronary artery disease) BMP W/FASTING GLUCOSE Routine 05/14/2013 3:30 AM EST DIFFERENTIAL, AUTOMATED Routine 05/14/2013 3:30 AM EST CARDIAC ENZYMES ([facility]/CGP) Routine 05/14/2013 3:30 AM EST CBC (WITH DIFF) Routine 05/14/2013 3:30 AM EST POCT GLUCOSE Routine 05/14/2013 3:10 AM EST POCT GLUCOSE Routine 05/13/2013 11:40 PM EST POCT GLUCOSE Routine 05/13/2013 10:14 PM EST POCT GLUCOSE Routine 05/13/2013 8:52 PM EST POCT GLUCOSE Routine 05/13/2013 3:55 PM EST EKG 12-LEAD Routine 05/13/2013 1:57 PM EST CAD (coronary artery disease) CARDIAC ENZYMES ([facility]/CGP) STAT 05/13/2013 1:00 PM EST POCT GLUCOSE Routine 05/13/2013 10:46 AM EST documented in this encounter Results * SCAN DOC: MECHANICAL HANDYMAN (05/16/2013 11:07 PM EST) Anatomical Region Laterality Modality Other Narrative 05/16/2013 11:09 PM EST Procedure Note Provider, Scanning - 05/16/2013 11:07 PM EST Scanning Provider MEDIA MGR SCAN EXT O RDR/RSLT * (ABNORMAL) POCT Glucose (05/14/2013 12:08 PM EST) Glucose, POC 222(H) 60 - 199 mg/dL [facility] Comment: Supplemental ranges: <110 mg/dL before meals <200 mg/dL all other times of the day Blood specimen (specimen) 05/14/2013 12:08 PM EST 05/14/2013 12:08 PM EST Kit Self MD POINT OF CARE TEST O [place] Performing Organization Address [facility] Co de Phone Number [facility] * POCT Glucose (05/14/2013 7:57 AM EST) Glucose, POC 85 60 - 199 mg/dL [facility] Comment: Supplemental ranges: <110 mg/dL before meals <200 mg/dL all other times of the day Blood specimen (specimen) 05/14/2013 7:57 AM EST 05/14/2013 7:57 AM EST Kit Self MD POINT OF CARE TEST O [place] Performing Organization Address [facility] Co de Phone Number [facility] * EKG 12 Lead (05/14/2013 7:40 AM EST) Ventricular rate 72 BPM MUSE SYSTEM Atrial Rate 72 BPM MUSE SYSTEM P-R Interval 208 ms MUSE SYSTEM QRS Duration 122 ms MUSE SYSTEM Q-T Interval 416 ms MUSE SYSTEM QTC Calculated (Bezet) 455 ms MUSE SYSTEM Calculated P Ten Sleep 67 degrees MUSE SYSTEM Calculated R Ten Sleep -59 degrees MUSE SYSTEM Calculated T Ten Sleep -12 degrees MUSE SYSTEM INTERPRETATION Sinus rhythm [...] BMP w/fasting Glucose (05/14/2013 3:30 AM EST) [facility] Signature Glucose Fasting 83 65 - 99 mg/dL [...] of Diabetes Mellitus, Position Statement from the [place] Diabetes Association. ??Diabetes Care, Volume 33, Supplement 1, Apr 2009 Blood Urea Nitrogen 21(H) 10 - 20 mg/dL [facility] MILLENNIUM Creatinine 0.99 0.80 - 1.50 mg/dL [facility]ER MILLENNIUM Comment: Please note that the pediatric reference intervals supplied above were not validated at [facility]. Results from pediatric patients should be interpreted [...] Lab Jennifer Curry MD CHEMISTRY ORDERABLES [facility] * (ABNORMAL) Cardiac Enzymes (05/14/2013 3:30 AM EST) Troponin-T 0.05(H) <=0.03 ng/mL [facility] Comment: 0.03 ng/mL: Represents the 99th percentile upper reference limit for normals. >0.03 ng/mL: Elevated cardiac troponin T level indicative of myocardial damage. Diagnosis of acute, evolving or recent MA requires a typical rise and gradual fall [...] consensus document of the Joint Society of Cardiology/Japanese College of Cardiology Committee for the redefinition of myocardial infarction. ??Journal of the [place] College of Cardiology 2000; 36: 959-969] Creatine Kinase 62 0 - 200 unit/L [facility] MILTONZINA Blood specimen (specimen) 05/14/2013 3:30 AM EST 05/14/2013 3:32 AM EST Narrative Resulting Agency Comment Spec In Lab Jennifer Curry MD CHEMISTRY ORDERABLES Performing Organization Address [facility] de Phone Number MONICA BENITEZIUM [...] MD HEMATOLOGY ORDERABLE S Performing Organization Address [facility] de Phone Number [facility] PERALTA * POCT Glucose (05/14/2013 3:10 AM EST) Glucose, POC 87 60 - 199 mg/dL [facility] Comment: Supplemental ranges: <110 mg/dL before meals <200 mg/dL all other times of the day Blood specimen (specimen) 05/14/2013 3:10 AM EST 05/14/2013 3:10 AM EST Kit Self MD POINT OF CARE TEST O RDERABLES Performing Organization Address [facility] de Phone Number [facility] * POCT Glucose (05/13/2013 11:40 PM EST) Glucose, POC 141 60 - 199 mg/dL [facility] Comment: Supplemental ranges: <110 mg/dL before meals <200 mg/dL all other times of the day Blood specimen (specimen) 05/13/2013 11:40 PM EST 05/13/2013 11:40 PM EST Kit Self MD POINT OF CARE TEST O RDERALOREE Performing Organization Address [facility] de Phone Number [facility] * (ABNORMAL) POCT Glucose (05/13/2013 10:14 PM EST) Glucose, POC 224(H) 60 - 199 mg/dL [facility] Comment: Supplemental ranges: <110 mg/dL before meals <200 mg/dL all other times of the day Blood specimen (specimen) 05/13/2013 10:14 PM EST 05/13/2013 10:14 PM EST Kit Self MD POINT OF CARE TEST O RDERALOREE Performing Organization Address [facility] Phone Number [facility] * (ABNORMAL) POCT Glucose (05/13/2013 8:52 PM EST) Glucose, POC 318(H) 60 - 199 mg/dL [facility] Comment: Supplemental ranges: <110 mg/dL before meals <200 mg/dL all other times of the day Blood specimen (specimen) 05/13/2013 8:52 PM EST 05/13/2013 8:52 PM EST Kit Self MD POINT OF CARE TEST O RDERABLES Performing Organization Address [facility] de Phone Number [facility] * POCT Glucose (05/13/2013 3:55 PM EST) Glucose, POC 90 60 - 199 mg/dL [facility] Comment: Supplemental ranges: <110 mg/dL before meals <200 mg/dL all other times of the day Blood specimen (specimen) 05/13/2013 3:55 PM EST 05/13/2013 3:55 PM EST Kit Self MD POINT OF CARE TEST O RDERABLES Performing Organization Address [facility] de Phone Number [facility] * EKG 12 Lead (05/13/2013 1:57 PM EST) Pathologist [facility] Ventricular rate 59 BPM MUSE SYSTEM Atrial Rate 59 BPM MUSE SYSTEM P-R Interval 224 ms MUSE SYSTEM QRS Duration 132 ms MUSE SYSTEM Q-T Interval 438 ms MUSE SYSTEM QTC Calculated (Bezet) 433 ms MUSE SYSTEM Calculated P Ten Sleep 37 degrees MUSE SYSTEM Calculated R Ten Sleep -61 degrees MUSE SYSTEM Calculated T Ten Sleep -29 degrees MUSE SYSTEM INTERPRETATION Sinus bradycardia with 1st degree A-V block Left axis deviation Non-specific intra-ventricula r conduction block T wave abnormality, consider anterolateral ischemia Abnormal ECG Confirmed by MD William, Navid ([id number]) on 05/14/2013 3:52:55 PM MUSE SYSTEM 05/13/2013 1:57 PM EST 05/14/2013 3:52 PM EST Jennifer Curry MD ECG ORDERABLES Performing Organization Address [facility] de Phone Number MUSE SYSTEM * Cardiac Enzymes (05/13/2013 1:00 PM EST) [facility] Troponin-T <0.03 <=0.03 ng/mL [facility] Comment: 0.03 ng/mL: Represents the 99th percentile upper reference limit for normals. >0.03 ng/mL: Elevated cardiac troponin T level indicative of myocardial damage. Diagnosis of acute, evolving or recent MA requires a typical rise and gradual fall [...] consensus document of the Joint Society of Cardiology/[place] College of Cardiology Committee for the redefinition of myocardial infarction. ??Journal of the [place] College of Cardiology 2000; 36: 959-969] Creatine Kinase 52 0 - 200 unit/L [facility] MILTONZINA Blood specimen (specimen) 05/13/2013 1:00 PM EST 05/13/2013 1:19 PM EST Narrative Resulting Agency Comment Spec In Lab Kit Self MD CHEMISTRY ORDERABLES Performing Organization Address [facility] Co de Phone Number [facility] * POCT Glucose (05/13/2013 10:46 AM EST) Glucose, POC 113 60 - 199 mg/dL [facility] Comment: Supplemental ranges: <110 mg/dL before meals <200 mg/dL all other times of the day Blood specimen (specimen) 05/13/2013 10:46 AM EST 05/13/2013 10:46 AM EST Kit Self MD POINT OF CARE TEST O RDERABLES Performing Organization Address [facility] Co de Phone Number MONICA PERALTA documented in this encounter Visit Diagnoses Diagnosis ASCVD (arteriosclerotic cardiovascular disease)- Primary Unspecified cardiovascular disease CAD (coronary artery disease) Coronary atherosclerosis of unspecified type of vessel, [place] or graft ASCVD (arteriosclerotic cardiovascular disease) Unspecified cardiovascular disease Atherosclerotic heart disease of [place] coronary artery with unstable angina pectoris Coronary atherosclerosis of [place] coronary artery documented in this encounter Administered [...] Villalpando RN) 0900 (Given - Provider: Shyanne Casillas, NAHUN) hydrochlorothiazide (HYDRODIURIL) tablet 12.5 mg (CANCELED) 12.5 mg, Oral, DAILY, First dose on Thu05/13/13 at 1600, Until Discontinued, Routine 1600 (Not Given - Provider: Ely Villalpando RN - Reason: See comment - Comment: 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 [employer]) 0900 (Given - Provider: Shyanne Casillas RN) [...] See comment - Comment: 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 [employer]) 0900 (Given - Provider: Shyanne Casillas RN) lisinopril (PRINIVIL;ZESTRIL) tablet 10 mg (CANCELED) 10 mg, Oral, DAILY, First dose on Thu05/13/13 at 1600, Until Discontinued, Routine 1600 (Not Given - Provider: Ely Villalpando RN - Reason: See comment - Comment: taken captain cannery tender) 0900 (Given - Provider: Shyanne Casillas RN) nadolol (CORGARD) tablet 20 mg (CANCELED) 20 mg, Oral, DAILY, First dose on Thu05/13/13 at 1500, Until Discontinued, Routine 1500 (Not Given - Provider: Ely Villalpando RN - Reason: See comment - Comment: took [employer]) 0900 (Given - Provider: Shyanne Casillas RN) [...] NAHUN) documented in this encounter Care Teams Mineral Industry Teacher Relationship Specialty Start Date End Date Jennifer Haro MD PCP - General 01/07/12 01/30/14 documented as of this encounter
--- OUTSIDE RECORDS SUMMARY | 2024-05-09 16:26 | XMS_ITS | Encounter Summary ---
Author Organization [facility] [place] [address] Care Team Providers Care Patient Registrar Name Role Phone Iggy Sevilla MD Primary Care Provider [phone] Reason for Visit * Reason Comments GI Problem Encounter Details Date Type Department Care Team (Late st Contact Info) Description 11/17/2011 9:00 AM EDT Office [place] [phone] Baldemar Crockett APRN [facility] DR [place] [address] IBS (irritable bowel syndrome) (Primary Dx) Discharge [...] AM EDT Section of Gastroenterology and Hepatology [address] [place], [place] [id number] .Marquez Hendrix : 1950 Patient is here [...] resolves after emptying. Colonoscopy 2009, per pt, [facility], normal. No blood in stool. Mucus in stool, a different odor. Has not correlated sx with medications, foods, or activities. Does not awake with sx. Weight stable. No chronic nsaids. No food allergies. Imodium prn. Tried probiotics in yogurt, Activia, did not agree with you. He believes he had a CT while in [facility], it was negative for diverticulitis. Diet: Breakfast: [...] EDT) TTG IgA Ab <4.0 <=3.9 u/ml [facility] Comment: Result Interpretation: Negative: ?<4 U/mL Weak Positive: ??4-10 U/mL Positive: ?>10 U/mL Blood specimen (specimen) 11/17/2011 10:24 AM EDT 11/17/2011 2:20 PM EDT Narrative Resulting Agency Comment Spec In Lab Juwan Skinner MD IMMUNOLOGY ORDERABLE S [facility] documented in this encounter Visit Diagnoses Diagnosis IBS (irritable bowel syndrome)- Primary Irritable bowel syndrome documented in this encounter Care Teams Patient Registrar Relationship Specialty Start Date End Date Iggy Sevilla MD [address] [place] [address] [place] [address] PCP - General 10/22/10 01/06/12 documented as of this encounter
--- OUTSIDE RECORDS SUMMARY | 2024-05-09 16:26 | XMS_ITS | Encounter Summary ---
Author Organization [facility] Address [facility] [place] [address] Care Team Providers Care Payroll And Benefits Assistant Name Role Phone Jennifer Haro MD Primary Care Provider Unavaila ble Reason for Visit * Reason Comments Follow-up S/P cath Encounter Details Date Type Department Care Team (Late st Contact Info) Description 06/14/2013 9:40 AM EST Follow-Up Cardiology at [address] [phone] Kit Self MD [facility] [place] [address] ASCVD (arteriosclerotic cardiovascular disease); Tobacco abuse Discharge [...] original note were not included. [facility] [place] [address] CARDIOLOGY OUTPATIENT FOLLOW-UP NOTE Marquez Hendrix [id number] PCP: JENNIFER HARO MD 06/14/2013 PRIMARY CARE [...] test at [facility] in [place], [place] May 02, 2013 during which he developed left shoulder and arm discomfort during submaximal exercise on the treadmill and after which he was converted to a pharmacologic test; nuclear imaging showed ejection fraction of 45% with a partially reversible inferior defect ?? Cath [facility] 05/13/2013: normal left main, mild diffuse disease [...] mg by mouth 2 times daily. ??? [place]-3 Fatty Acids (FISH OIL) 500 mg Cap Take by mouth daily. ??? multivitamin capsule Take 1 capsule by mouth daily. ??? LANCETS MISC by Misc.(Non-Drug; Combo Route) route. ??? lamotrigine (LAMICTAL) 100 mg tablet Take 100 mg by mouth daily. ??? alprazolam (XANAX XR) 3 mg 24 hr tablet Take 3 mg by mouth every morning. ? ? lactobac cmb #[id number] (PROBIOTIC & ACIDOPHILUS) 300-250 million cell- mg [...] AM EST Hospital Encounter Non[place] [phone] Arrived documented as of this encounter Visit Diagnoses Diagnosis ASCVD (arteriosclerotic cardiovascular disease) Unspecified cardiovascular disease Tobacco abuse Tobacco use disorder documented in this encounter Care Teams Payroll And Benefits Assistant Relationship Specialty Start Date End Date Jennifer Haro MD PCP - General 01/07/12 01/30/14 documented as of this encounter
--- OUTSIDE RECORDS SUMMARY | 2024-05-09 16:26 | XMS_ITS | Encounter Summary ---
Author Organization [facility] Address [facility] [place] [address] Care Team Providers Care Ethylene Oxide Panelboard Operator Name Role Phone Dewayne Mcdermott MD Primary Care Provider Unavaila ble Reason for Visit * Reason Comments Coronary Artery Disease Encounter Details Date Type Department Care Team (Latest Contact Info) Description 05/10/2013 9:10 AM EST Office Visit Cardiology at [address] [phone] Kit Self MD [facility] [place] [address] CAD (coronary artery disease) (Primary Dx); ASCVD (arteriosclerotic cardiovascular disease); Atherosclerotic heart disease of chick[place]om[place] ind[place] coronary artery with unstable angina pectoris; T2DM [...] note were not included. [facility] Ed [place] Cao [address] CARDIOLOGY OUTPATIENT CONSULTATION [facility] Marquez Hendrix [id number] 05/10/2013 REFERRING PROVIDER: Dewayne Mcdermott CHIEF COMPLAINT: Chief Complaint Patient presents with ??? Coronary Artery Disease PROBLEM LIST Patient Active Problem List Diagnosis ??? T2DM (type 2 diabetes mellitus) ??? Esophageal reflux ??? IBS (irritable bowel syndrome) ??? ASCVD (arteriosclerotic cardiovascular disease) ?? Heart catheterization in [facility] in 2007 with placement of a [...] [facility] in [place], [place] May 02, 2013 during which he [...] mg by mouth nightly as needed. ??? [place]-3 Fatty Acids (FISH OIL) 500 mg Cap Take by mouth daily. ??? multivitamin capsule Take 1 capsule by mouth daily. ??? LANCETS MISC by Misc.(Non-Drug; Combo Route) route. ??? lamotrigine (LAMICTAL) 100 mg tablet Take 100 mg by mouth daily. ??? alprazolam (XANAX XR) 3 mg 24 hr tablet Take 3 mg by mouth every morning. ? ? lactobac cmb #[id number] (PROBIOTIC & ACIDOPHILUS) 300-250 million cell- mg [...] He developed anginal symptoms while living in [place], [place] in 2007. He apparently proceeded to [...] problems. 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 He spent some time in the [employer]. He currently lives in [facility] and is . He is a current [...] via any of the following mechanisms: Email: [email or web address] documented in this encounter Procedure Notes * Provider, Scanning - 05/13/2013 1:29 PM ESTAssociated Order(s): CARDIAC CATHETERIZATION documented in this encounter Plan of Treatment Upcoming Encounters Date Type Department Care Team (Late st Contact Info) Description 06/15/2024 10:00 AM EST Hospital Encounter [place] [address] Arrived documented as of this encounter Procedures Procedure Name Priority Date/Time Associated Diagnosis Comments CARDIAC CATHETERIZATION Routine 05/13/2013 1:12 PM EST CAD (coronary artery disease) ASCVD (arteriosclerotic cardiovascular disease) Atherosclerotic heart disease of chick[place] ind[place] coronary artery with unstable angina pectoris DIFFERENTIAL, AUTOMATED Routine 05/10/2013 10:41 AM EST PROTHROMBIN TIME Routine 05/10/2013 10:4 1 AM EST CAD (coronary artery disease) ASCVD (arteriosclerotic cardiovascular disease) Atherosclerotic heart disease of chick[place] coronary artery with unstable angina pectoris CBC (WITH DIFF) Routine 05/10/2013 10:41 AM EST CAD (coronary artery disease) ASCVD (arteriosclerotic cardiovascular disease) Atherosclerotic heart disease of chick[place] ind[place] coronary artery with unstable angina pectoris BASIC METABOLIC PANEL Routine 05/10/2013 10:41 AM EST CAD (coronary artery disease) ASCVD (arteriosclerotic cardiovascular disease) Atherosclerotic heart disease of chick[place]om[place] ind[place] coronary artery with unstable angina pectoris EKG [...] 12.0 - 15.0 sec CERNER MILLENNIUM Comment: [facility] Transfusion Committee Guidelines: INR less [...] Lab Kit Self MD [facility] S [facility]lin Diamonds[facility] * Basic Metabolic Panel (non-fasting) (05/10/2013 10:41 AM EST) Glucose 122 60 - 199 mg/dL CERNER MILLENNIUM Comment:Diabetes: >=200 mg/d L plus symptoms Blood Urea Nitrogen 20 10 - 20 mg/dL CERNER MILLENNIUM Creatinine 1.16 0.80 - 1.50 mg/dL CERNER MILLENNIUM Comment: Please note that the pediatric reference intervals supplied above were not validated at [facility]. Results from pediatric patients should be interpreted [...] CHEMISTRY ORDERABLES Performing Organization Address [facility]/ZIP Co de Phone Number MOINCA PERALTA * CBC (with Diff) (05/10/2013 10:41 [...] ORDERABLE S Performing Organization Address [facility] Co de Phone Number MONICA PERALTA * EKG 12 Lead (05/10/2013 9:20 AM EST) Ventricular rate 73 BPM MUSE SYSTEM Atrial Rate 73 BPM MUSE SYSTEM P-R Interval 202 ms MUSE SYSTEM QRS Duration 134 ms MUSE SYSTEM Q-T Interval 440 ms MUSE SYSTEM QTC Calculated (Bezet) 484 ms MUSE SYSTEM Calculated P [place] 43 degrees MUSE SYSTEM Calculated R [place] -62 degrees MUSE SYSTEM Calculated T [place] 14 degrees MUSE SYSTEM INTERPRETATION Sinus rhythm with Premature ventricular complexes Left axis deviation Non-specific intra-ventricular conduction block Poor R-wave progression Abnormal ECG No previous ECGs available I personally reviewed the tracing and edited the fellows interpretation Confirmed by fellow MD Pavel, Alex De La Rosa ([id number]) on 05/10/2013 11:12:18 AM Confirmed by MD Thomas Douglas ([id number]) on 05/10/2013 3:33:20 PM MUSE SYSTEM 05/10/2013 9:20 AM EST 05/10/2013 3:33 PM EST Kit Self MD ECG ORDERABLES MUSE SYSTEM documented in this encounter Visit Diagnoses Diagnosis CAD (coronary artery disease)- Primary Coronary atherosclerosis of unspecified type of vessel, [place] or graft ASCVD (arteriosclerotic cardiovascular disease) Unspecified cardiovascular disease Atherosclerotic heart disease of chick[place] coronary artery with unstable angina pectoris Coronary atherosclerosis of chick[place] indians[place] coronary artery T2DM (type 2 diabetes mellitus) Type II or unspecified type diabetes mellitus without mention of complication, not stated as uncontrolled ASCVD (arteriosclerotic cardiovascular disease) Unspecified cardiovascular disease CAD (coronary artery disease) Coronary atherosclerosis of unspecified type of vessel, [place] or graft Atherosclerotic heart disease of chick[place] coronary artery with unstable angina pectoris Coronary atherosclerosis of chick[place] indians[place] coronary artery documented in this encounter Care Teams Ethylene Oxide Panelboard Operator Relationship Specialty Start Date End Date Dewayne Mcdermott MD PCP - General 01/07/12 01/30/14 documented as of this encounter
[2024-05-09 16:47] LABS: INR 1.5 (0.9-1.1); PTT Activated 36.8 sec (20.6-30.2); Prothrombin Time 14.8 sec (9.1-11.1)
[2024-05-09 17:12] LABS: ALT 65 U/L (16-63); AST 43 U/L (15-37); Albumin 4.3 g/dL (3.4-5.0); Alkaline Phosphatase 83 U/L (46-116); Anion Gap 12.9 mmol/L (3-11); BUN 19 mg/dL (7-18); Bilirubin, Total 0.51 mg/dL (0.2-1.0); CO2 24.1 mmol/L (21.0-32.0); CREATININE 1.2 mg/dL (0.70-1.30); Calcium 9.5 mg/dL (8.5-10.1); Chloride 102 mmol/L (98-107); Estimated GFR 63.46 (mL/min/1.73m2); Glucose 338 mg/dL (74-106); Magnesium 1.5 mg/dL (1.8-2.4); NT-proBNP 130 pg/mL (<300); Potassium 4.4 mmol/L (3.5-5.1); Sodium 139 mmol/L (136-145); Total Protein 8.3 g/dL (6.4-8.2); Troponin I 6 ng/L (<or=76)
[2024-05-09] MEDS: MAGNESIUM SULFATE 2 GM/50 ML BAG IVINF (17:35)
[2024-05-09 17:48] LABS: Troponin I 8 ng/L (<or=76)
[2024-05-09] MEDS: Metoprolol 50 MG TAB PO (19:29)
--- NOTE | 2024-05-09 22:10 | W.ED.GENAD ---
Discharge Plan Disposition Patient Disposition: Transfer-Acute Inpatient Care Specific Acute Inpt Facility: [facility] Condition: Stable Discharge Details Clinical Impression: Ventricular dysrhythmia Primary Care Provider: Ralph Bright ED Provider: Tarun Mace Home Meds and New Rx's Prescriptions: No Action nitroglycerin [Nitrostat] 0.4 mg tablet, sublingual 0.4 mg sublingual Q5M PRN (Reason: chest pain) Qty: 30 3RF Rx Instructions: do not exceed 3 doses per episode metoprolol succinate 100 mg tablet extended release 24 hr 50 mg PO DAILY magnesium chloride [Mag 64] 64 mg tablet,delayed release (DR/EC) 128 mg PO TID zolpidem 5 mg tablet 5 mg PO QHS PRN lamotrigine 200 mg tablet 200 mg PO DAILY Xarelto 20 mg tablet 20 mg PO DAILY Qty: 90 3RF psyllium husk [Fiber (psyllium husk)] 0.52 gram capsule 0.52 g PO DAILY polyethylene glycol 3350 [Miralax] 17 gram powder in packet 17 g PO DAILY furosemide 20 mg tablet 20 mg PO DAILY PRN gabapentin 300 mg capsule 300 mg PO DAILY glipizide 10 mg tablet extended release 24hr 10 mg PO DAILY Jardiance 10 mg tablet 10 mg PO DAILY semaglutide 0.25 mg or 0.5 mg (2 mg/3 mL) pen injector 0.25 mg subcut QWEEK Patient Comments: hasn't started yet Rx Instructions: for 4 weeks pantoprazole [Protonix] 20 MG tablet,delayed release (DR/EC) 40 mg PO HS Patient Comments: 07/23/17-40mg PO daily per pt tramadol 50 MG tablet 50 mg PO PRN PRN atorvastatin [Lipitor] 80 mg tablet 20 mg PO HS Patient Comments: TAKE 1 TABLET BY MOUTH DAILY AT BEDTIME metformin 1,000 mg tablet 1,000 mg PO BID@0800,1700 lisinopril [Zestril] 2.5 mg tablet 2.5 mg PO QAM Patient Comments: TAKE 1 TABLET BY MOUTH EVERY DAY multivitamin Tablet 1 tab PO DAILY amiodarone 100 mg tablet 100 mg PO DAILY HPI General Date/Time Provider Initiated Documentation: 05/09/24 16:09. Limitations to Documentation: no limitations. Information obtained by: patient. HPI Narrative: 73-year-old gentleman with past medical history of this arrhythmia, AICD placement, hypertension, diabetes, A-fib presents for evaluation after his defibrillator fired. He reports that he has not been feeling well for the last few days. Having some generalized fatigue and increased nonspecific symptoms. Has denied any chest pain or shortness of breath. He reports that today he felt a little lightheaded and just felt weak and off so he checked his vital signs. He noted that his blood pressure seemed a little bit low and that according to his reproductive endocrinologist he was in A-fib.. He states that he has not had A-fib in over a year according to his prior VS interrogations. He states that he has been compliant with his medication including amiodarone daily. Related Data Home Medications ?Medication ?Instructions ?Recorded ?Confirmed pantoprazole 20 mg tablet,delayed 40 mg PO HS 12/06/13 05/09/24 release (Protonix) tramadol 50 mg tablet 50 mg PO PRN PRN 07/24/17 05/09/24 rivaroxaban 20 mg tablet (Xarelto) 20 mg PO DAILY #90 tabs 09/06/19 05/09/24 atorvastatin 80 mg tablet (Lipitor) 20 mg PO HS 12/19/20 05/09/24 polyethylene glycol 3350 17 gram 17 g PO DAILY 10/03/21 05/09/24 oral powder packet (Miralax) psyllium husk 0.52 gram capsule 0.52 g PO DAILY 10/03/21 05/09/24 (Fiber (psyllium husk)) lisinopril 2.5 mg tablet (Zestril) 2.5 mg PO QAM 11/20/21 05/09/24 metformin 1,000 mg tablet 1,000 mg PO BID@0800,1700 11/20/21 05/09/24 multivitamin 1 tab PO DAILY 11/20/21 05/09/24 zolpidem 5 mg tablet 5 mg PO QHS PRN 04/01/22 05/09/24 nitroglycerin 0.4 mg sublingual 0.4 mg sublingual Q5M PRN chest 07/31/22 05/09/24 tablet (Nitrostat) pain #30 tabs metoprolol succinate 100 mg 50 mg PO DAILY 02/18/23 05/09/24 tablet,extended release 24 hr magnesium chloride 64 mg 128 mg PO TID 04/01/23 05/09/24 (magnesium chloride) tablet,delayed release (Mag 64) lamotrigine 200 mg tablet 200 mg PO DAILY 06/10/23 05/09/24 empagliflozin 10 mg tablet 10 mg PO DAILY 04/27/24 05/09/24 (Jardiance) furosemide 20 mg tablet 20 mg PO DAILY PRN 04/27/24 05/09/24 gabapentin 300 mg capsule 300 mg PO DAILY 04/27/24 05/09/24 glipizide 10 mg tablet, extended 10 mg PO DAILY 04/27/24 05/09/24 release 24 hr semaglutide 0.25 mg or 0.5 mg (2 0.25 mg subcut QWEEK 04/27/24 05/09/24 mg/3 mL) subcutaneous pen injector amiodarone 100 mg tablet 100 mg PO DAILY 05/09/24 05/09/24 Previous Rx's ?Medication ?Instructions ?Recorded rivaroxaban 20 mg tablet (Xarelto) 20 mg PO DAILY #90 tabs 09/06/19 nitroglycerin 0.4 mg sublingual 0.4 mg sublingual Q5M PRN chest 07/31/22 tablet (Nitrostat) pain #30 tabs Allergies Allergy/AdvReac Type Severity Reaction Status Date / Time adhesive tape Allergy Unknown rash Verified 05/09/24 16:14 latex AdvReac Intermediate trouble Verified 05/09/24 16:14 breathing/moving General Stated Complaint: Palpitatns SHAILESH: 2 Exam Narrative Exam Narrative: Review of Systems: All systems reviewed & are unremarkable except as noted in HPI and below Well-developed, no acute distress NCAT A-fib rate controlled unlabored respiratory effort no crackles, hypoxia or increased work of breathing Nondistended abdomen soft nontender Extremities w/o edema Course Vital Signs Vital signs: Vital Signs Temperature 36.4 C 05/09/24 16:10 Pulse 85 05/09/24 16:10 Respiratory Rate 18 05/09/24 16:10 Blood Pressure 177/109 H 05/09/24 16:10 Pulse Oximetry 100 05/09/24 16:10 Temperature 36.4 C 05/09/24 16:10 Temperature Source Temporal Artery Scan 05/09/24 16:10 Pulse 55 L 01/20/25 20:47 Pulse 66 05/09/24 20:50 Respiratory Rate 15 05/09/24 20:50 Blood Pressure 122/60 05/09/24 20:47 Blood Pressure Mean 82 05/09/24 20:47 Blood Pressure Position Supine 05/09/24 16:10 Pulse Oximetry 98 05/09/24 20:50 Oxygen Delivery Method Room Air 05/09/24 16:10 Oxygen Flow Rate 0 05/09/24 16:10 Pain Level 8 05/09/24 16:23 Comment irreg a-fib 05/09/24 16:17 Lab/Test Results Lab/Test Results: Laboratory Tests Range/Units 05/09/24 05/09/24 05/09/24 16:15 17:19 19:14 WBC (4.4-10.8) 10^3/uL 10.22 RBC (4.36-5.78) 10^6/uL 5.26 Hgb (13.5-17.5) g/dL 15.5 Hct (40.0-50.0) % 48.0 MCV (80-95) fL 91 MCH (27.0-33.0) pg 29.5 MCHC (32.0-36.0) % 32.3 RDW (11.8-14.1) % 12.9 Plt Count (130-400) 10^3/uL 234 MPV (8.0-11.0) fL 9.2 Immature Gran % % 0.5 Neutrophils % % 52.0 Lymphocytes % % 30.9 Monocytes % % 6.7 Eosinophils % % 8.9 Basophils % % 1.0 Nucleated RBC % (0.0-0.3) % 0.0 Absolute Neutrophils (1.2-6.7) 10^3/uL 5.32 Absolute Lymphocytes (1.2-3.4) 10^3/uL 3.16 Absolute Monocytes (0.1-0.8) 10^3/uL 0.68 Absolute Eosinophils (0.0-0.7) 10^3/uL 0.91 H Absolute Basophils (0.0-0.2) 10^3/uL 0.10 PT (9.1-11.1) sec 14.8 H INR (0.9-1.1) 1.5 H APTT (20.6-30.2) sec 36.8 H Sodium (136-145) mmol/L 139 Potassium (3.5-5.1) mmol/L 4.4 Chloride (98-107) mmol/L 102 Carbon Dioxide (21.0-32.0) mmol/L 24.1 Anion Gap (3-11) mmol/L 12.9 H BUN (7-18) mg/dL 19 H Creatinine (0.70-1.30) mg/dL 1.2 Est GFR (CKD-EPI 2020) (mL/min/1.73m2) 63.46 Glucose (74-106) mg/dL 338 H Calcium (8.5-10.1) mg/dL 9.5 Magnesium (1.8-2.4) mg/dL 1.5 L Total Bilirubin (0.2-1.0) mg/dL 0.51 AST (15-37) U/L 43 H ALT (16-63) U/L 65 H Alkaline Phosphatase (46-116) U/L 83 Troponin I (<or=76) ng/L 6 8 Cancelled NT-Pro-B Natriuret Pep (<300) pg/mL 130 Total Protein (6.4-8.2) g/dL 8.3 H Albumin (3.4-5.0) g/dL 4.3 Medical Decision Making Emergent evaluation of the firing of the defibrillator. Initial differential includes dysrhythmia, electrolyte derangement, less likely ACS. Initial EKG independently interpreted: A-fib intrafascicular block, 90. No STEMI. The patient is hemodynamically stable at this time. I will place on telemetry monitoring. Interrogation of the device does reveal that the defibrillator fired within secondary to a ventricular dysrhythmia. Lab work was obtained. No leukocytosis or anemia. Creatinine is at baseline. Troponins x 2 are not elevated. His BNP is not elevated and there is no signs of volume overload on physical exam. His LFTs are not significantly elevated can assess there was previous concern for possible amiodarone toxicity. An amiodarone level has been sent however this is a send I and will be resulted during this visit. The magnesium level is noted to be slightly low at 1.5. Patient reports that he has been compliant with his oral magnesium. He had replacement of his low level IV. I have discussed with cardiology at [facility] who is reviewed his workup and feels that he would benefit from transfer to their facility for further evaluation and management. The patient has been accepted for transfer by cardiology service, attending physician Dr. Mena. He will remain on telemetry monitoring. They do recommend lidocaine infusion if his defibrillator fires again. Quality:SDOH Health Related Social Needs: No Data to Display PFSH All Active Problems Ventricular dysrhythmia (Acute) Bilateral cataracts (Acute) Fracture of distal end of right fibula (Acute ~03/10/23) Bilateral sensorineural hearing loss (Acute) Change in voice (Acute) Vertigo (Acute) Essential tremor (Acute) Paroxysmal atrial fibrillation (Acute) ICD (implantable cardioverter-defibrillator), dual, in situ (Acute) Left shoulder pain (Acute) Left sided sciatica (Acute) Hypokinesia of left ventricle (Acute) EF 48% Multiple fractures of ribs of left side (Acute) Medication management (Acute) FPC current use of 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 medical therapy (Acute) Imbalance (Acute) Discharge planning issues (Acute) Hammer toe (Acute) Peripheral neuropathy (Chronic) Ventricular tachyarrhythmia (Chronic) s/p ICD 2013 Clinical depression (Chronic) Obstructive sleep apnea (Chronic) Diverticulosis (Acute) Gastritis (Acute) Contusion of left knee, initial encounter (Acute 08/12/17) Disequilibrium (Chronic 11/10/16) Dysphagia (Acute) Contact dermatitis (Acute) Magnesium deficiency (Acute) Hypertension (Chronic) Diabetes (Chronic) Chronic pain (Chronic) Medical History Degenerative tear of triangular fibrocartilage complex (TFCC) of wrist History of nephrolithiasis Tremor Foot drop, right COVID-19 Constipation Conjunctivitis Pressure sore History of paresthesia Leg edema Hoarseness H/O ventricular tachycardia Contusion of left chest wall Abrasion hip/leg Contusion of left elbow and forearm Hemothorax on left minimal Pleural effusion Pneumothorax on left Contusion of left lung Kidney stones Diabetic peripheral neuropathy Degenerative disc disease Depression determined by examination Type 2 diabetes mellitus Dermatitis Steatohepatitis Medication monitoring encounter Frequent falls Family history of nephrolithiasis Hard stool Hallucinations Hematuria Hypomagnesemia DVT prophylaxis Lumbar degenerative disc disease Iron deficiency anemia Ischemic cardiomyopathy Hiatal hernia GERD (gastroesophageal reflux disease) Hyperlipidemia pt. states its a fissure near his coccyx Atrial fibrillation CAD (coronary artery disease) Anal fissure Rib pain on right side Pressure ulcer, buttock Esophageal ring Unspecified fracture of the lower end of right radius, subsequent encounter for closed fracture with routine healing (08/12/17) Surgical History History of cholecystectomy History of coronary artery stent placement History of permanent cardiac pacemaker placement with defib History of esophagogastroduodenoscopy (EGD) 12/17/18 History of colonoscopy 12/17/18 Family History Father Heart disease Mother Heart disease Brother Alcoholism Social History Smoking/Tobacco Use Status: Current every day Tobacco Type: smokeless tobacco Counseling given: patient declined Smoking risk assessment performed?: Yes Alcohol Intake: former Drug use: Never Substance use type: does not use Details: Pt states he vapes daily Housing: house current occupation: Retired What type of physical activity do you participate in: bicycling Frequency: 3-4 times per week Do you feel safe at home: Yes Do you feel safe in your relationship?: Yes
== END 2024-05-09 21:14 | disposition short-term general hospital (02) ==
PROVIDERS: Emergency Provider Emergency Medicine; PCP Student in an Organized Health Care Education/Training Program
DX: I47.0 Re-entry ventricular arrhythmia (principal); I48.91 Unspecified atrial fibrillation; I10 Essential (primary) hypertension; E78.5 Hyperlipidemia, unspecified; I25.10 Atherosclerotic heart disease of native coronary artery without angina pectoris; E11.40 Type 2 diabetes mellitus with diabetic neuropathy, unspecified; Z95.810 Presence of automatic (implantable) cardiac defibrillator; Z95.5 Presence of coronary angioplasty implant and graft; Z79.84 Long term (current) use of oral hypoglycemic drugs; Z79.01 Long term (current) use of anticoagulants; Z79.85 Long-term (current) use of injectable non-insulin antidiabetic drugs; F17.290 Nicotine dependence, other tobacco product, uncomplicated
CPT/HCPCS: 36415; 80053; 80151; 93005; 96365; 96366; 99285; 83735; 83880; 84484; 85025; 85610; 85730; 93010; J3475

== ENCOUNTER 2024-05-24 14:14 | Outpatient (REF) | payer MEDICARE, SELFPAY ==
--- OUTSIDE RECORDS SUMMARY | 2024-05-24 14:19 | XMS_ITS | Encounter Summary ---
Author Organization [facility] Address [address] [place] [address] Care Team Providers Care Porcelain Enamel Repairer Name Role Phone Dewayne Carrington MD Primary Care Provider [phone] Encounter Details Date Type Department Care Team (Late st Contact Info) Description 12/20/2020 Lab Requisition [facility] Pathology & Laboratory Medicine - [facility] [address] [place], [place] [id number] Outr Resulting Lab, Provider Social History Tobacco [...] 1.7 - 2.8 mg/dL 12/20/2020 16:50 EDT [facility] Blood VENOUS BLOOD / Unknown 12/19/2020 14:45 EDT 12/20/2020 16:30 EDT us Provider Outr Resulting Lab CHEMISTRY & BLOOD GA S ORDERABLES Final Result [facility] [address] [place] [address] documented in this encounter Visit Diagnoses Not on filedocumented in this encounter Care Teams Porcelain Enamel Repairer Relationship Specialty Start Date End Date Dewayne Carrington MD [address] [place] [address] PCP - General 12/20/18 documented as of this encounter
--- OUTSIDE RECORDS SUMMARY | 2024-05-24 14:19 | XMS_ITS | Encounter Summary ---
Author Organization [facility] Address [address] [place] [address] Care Team Providers Care Core Dipper Name Role Phone Dewayne Carrington MD Primary Care Provider [phone] Encounter Details Date Type Department Care Team (Late st Contact Info) Description 12/26/2022 Lab Requisition [facility] Pathology & Laboratory Medicine - [facility] [address], [place] [address] Outr Resulting Lab, Provider Social History Tobacco [...] 57.7 55.8 - 66.1 % 12/29/2022 13:12 [facility] Albumin g/dL 3.8 3.6 - 5.2 g/dL 12/29/2022 13:12 [facility] Alpha-1 % 4.5 2.9 - 4.9 % 12/29/2022 13:12 [facility] Alpha-1 g/dL 0.30 0.15 - 0.40 g/dL 12/29/2022 13:12 [facility] Alpha-2 % 16.9(H) 7.1 - 11.8 % 12/29/2022 13:12 [facility] Alpha-2 g/dL 1.10(H) 0.50 - 1.00 g/dL 12/29/2022 13:12 [facility] Beta % 11.8 8.4 - 13.1 % 12/29/2022 13:12 [facility] Beta g/dL 0.80 0.60 - 1.20 g/dL 12/29/2022 13:12 [facility] Gamma % 9.1(L) 11.1 - 18.8 % 12/29/2022 13:12 [facility] Gamma g/dL 0.60 0.60 - 1.60 g/dL 12/29/2022 13:12 [facility] SPEP Comment No apparent monoclonal protein seen on serum electrophoresis 12/29/2022 13:12 [facility] Comment:See scanned/suppleme ntary report. Total Protein 6.6 6.3 - 8.2 g/dL 12/29/2022 13:12 [facility] Blood VENOUS BLOOD / Unknown 12/26/2022 15:53 EDT 12/26/2022 22:00 EDT us Provider Outr Resulting Lab CHEMISTRY & BLOOD GA S ORDERABLES Final Result Performing Organization Address [facility] Co de Phone Number [facility] [address] [place] [address] * PROTEIN, TOTAL (12/26/2022 15:53 EDT) Blood VENOUS BLOOD / Unknown 12/26/2022 15:53 EDT 12/26/2022 22:00 EDT us Provider Outr Resulting Lab CHEMISTRY & BLOOD GA S ORDERABLES Final Result Performing Organization Address [facility] Co de Phone Number [facility] [address] [place] [address] documented in this encounter Visit Diagnoses Not on filedocumented in this encounter Care Teams Core Dipper Relationship Specialty Start Date End Date Dewayne Carrington MD [address] [place] [address] PCP - General 12/20/18 documented as of this encounter
--- OUTSIDE RECORDS SUMMARY | 2024-05-24 14:19 | XMS_ITS | Referral Summary ---
Author Organization [facility] Address [address] [place] [address] Care Team Providers Care Train Attendant Name Role Phone Dewayne Carrington MD Primary Care Provider [phone] Allergies No known active allergies Medications aspirin [...] 04/11/2011 Major depressive disorder 04/10/2011 Diabetes mellitus ([facility]) 03/24/2011 Social History Tobacco Use Types [...] Advance Directives For more information, please contact: [phone] Documents on File Type Date Recorded Patient Hot Blaster Expl anation Advance Directive 05/15/2011 4:39 DPOA 04/30 * Full Code (Latest Code Status on File) Date Activated Date Inactivated Comments 03/22/2011 18:42 05/05/2011 15:10 Care Teams Train Attendant Relationship Specialty Start Date End Date Dewayne Carrington [place] [address] PCP - General 12/20/18
--- OUTSIDE RECORDS SUMMARY | 2024-05-24 14:19 | XMS_ITS | Encounter Summary ---
Author Organization [facility] Address [address] [place] [address] Care Team Providers Care Support Services Rep Name Role Phone Iggy Sevilla MD Primary Care Provider [phone] Encounter Details Date Type Department Care Team (Latest Contact Info) Description 12/17/2018 14:48 EDT - 12/17/2018 23:59 EDT Hospital Encounter [address] [address] Unknown, Provider, MD Discharge Disposition: Home or [...] Code Departure Means Destination Home or Self Long Term documented in this encounter Plan of Treatment Not on file documented as of this encounter Visit Diagnoses Not on filedocumented in this encounter Care Teams Support Services Rep Relationship Specialty Start Date End Date Iggy Sevilla MD [address] [place] [address] PCP - General 03/24/11 12/19/18 documented as of this encounter
--- OUTSIDE RECORDS SUMMARY | 2024-05-24 14:19 | XMS_ITS | Encounter Summary ---
Author Organization [facility] Address [address] [place] [address] Care Team Providers Care Computer Field Technician Name Role Phone Dewayne Carrington MD Primary Care Provider [phone] Encounter Details Date Type Department Care Team (Late st Contact Info) Description 05/12/2019 Lab Requisition [facility] Pathology & Laboratory Medicine - [facility] [address] [place] [address] Unknown, Provider, Social History Tobacco Use Types [...] 6.3 - 8.2 g/dL 05/13/2019 14:16 EST [facility] Albumin % 57.9 55.8 - 66.1 % 05/13/2019 14:16 [facility] Alpha-1 % 4.3 2.9 - 4.9 % 05/13/2019 14:16 [facility] Alpha-2 % 15.9(H) 7.1 - 11.8 % 05/13/2019 14:16 [facility] Beta % 12.6 8.4 - 13.1 % 05/13/2019 14:16 [facility] Gamma % 9.3(L) 11.1 - 18.8 % 05/13/2019 14:16 [facility] SPEP Comment No apparent monoclonal protein seen on serum electrophoresis 05/13/2019 14:16 [facility] Comment:See scanned/suppleme ntary report. Blood VENOUS BLOOD / Unknown 05/12/2019 10:00 EST 05/12/2019 21:33 EST us Provider Unknown CHEMISTRY & BLOOD GAS ORDERA BLES Final Result Performing Organization Address City/State/[facility] Co de Phone Number [facility] [address] [place] [address] documented in this encounter Visit Diagnoses Not on filedocumented in this encounter Care Teams Computer Field Technician Relationship Specialty Start Date End Date Dewayne Carrington MD [address] [place] [address] PCP - General 12/20/18 documented as of this encounter
--- OUTSIDE RECORDS SUMMARY | 2024-05-24 14:19 | XMS_ITS | Encounter Summary ---
Author Organization [facility] Address [address] [place] [address] Care Team Providers Care Airplane Cleaner Name Role Phone Iggy Sevilla MD Primary Care Provider [phone] Encounter Details Date Type Department Care Team (Late st Contact Info) Description 12/17/2018 Results Only [facility] [phone] Brandi Hartman MD [address] [place] [phone] Social History Tobacco Use Types Packs/Day [...] ? MARQUEZ HENDRIX ? Accession #: ? [id number] ? : ? 1950 (Age: 68) ??M [...] (ASCP) 12/17/2018 7:07 PM End of Report [facility] 12/17/2018 16:3 3 EDT 12/17/2018 16:33 EDT us Brandi Hartman MD PATHOLOGY ORDERABLES Final Resul t [facility] [address] [place] [address] documented in this encounter Visit Diagnoses Not on filedocumented in this encounter Care Teams Airplane Cleaner Relationship Specialty Start Date End Date Iggy Sevilla MD [address] [place] [phone] PCP - General 03/24/11 12/19/18 documented as of this encounter
--- OUTSIDE RECORDS SUMMARY | 2024-05-24 14:19 | XMS_ITS | Encounter Summary ---
Author Organization [facility] Address [address] [place] [address] Care Team Providers Care Data Warehouse Architect Name Role Phone Dewayne Carrington MD Primary Care Provider [phone] Encounter Details Date Type Department Care Team (Late st Contact Info) Description 05/21/2019 Lab Requisition [facility] Pathology & Laboratory Medicine - [facility] [address] [place] [address] Unknown, Provider, Social History Tobacco Use Types [...] Surface Ag Negative Negative 05/23/2019 9:35 EST [facility] Blood VENOUS BLOOD / Unknown 05/20/2019 14:15 EST 05/22/2019 15:55 EST us Provider Unknown CHEMISTRY & BLOOD GAS ORDERA BLES Final Result [facility] [address] [place] [address] documented in this encounter Visit Diagnoses Not on filedocumented in this encounter Care Teams Data Warehouse Architect Relationship Specialty Start Date End Date Dewayne Carrington MD [facility] [place] [address] PCP - General 12/20/18 documented as of this encounter
--- OUTSIDE RECORDS SUMMARY | 2024-05-24 14:19 | XMS_ITS | Clinical Summary ---
Author Organization [facility] Address [address] [place] [address] Care Team Providers Care First Assistant Manager Name Role Phone Dewayne Carrington MD Primary Care Provider [phone] Allergies No known active allergies Medications aspirin [...] 04/11/2011 Major depressive disorder 04/10/2011 Diabetes mellitus ([facility]) 03/24/2011 Social History Tobacco Use Types [...] Advance Directives For more information, please contact: [phone] Documents on File Type Date Recorded Patient Configurator Expl anation Advance Directive 05/15/2011 4:39 DPOA 04/30 * Full Code (Latest Code Status on File) Date Activated Date Inactivated Comments 03/22/2011 18:42 05/05/2011 15:10 Care Teams First Assistant Manager Relationship Specialty Start Date End Date Dewayne Carrington MD [address] [place] [address] PCP - General 12/20/18
--- OUTSIDE RECORDS SUMMARY | 2024-05-24 14:21 | XMS_ITS | Encounter Summary ---
Author Organization [facility] Address [address] [place] [address] Care Team Providers Care Sales Professional Name Role Phone Iggy Sevilla MD Primary Care Provider [phone] Reason for Visit * Reason Onset Date Comments Procedure 04/17/2011 Encounter Details Date Type Department Care Team ([facility] st Contact Info) Description 04/17/2011 Pre-Procedure Orders Encounter [facility] Psychiatric Consultation Program - [address] [address] Juwan Sawant MD [address] [place] [address] [address] [place] [phone] Social History Tobacco Use Types Packs/Day Years [...] filedocumented in this encounter Care Teams Sales Professional Relationship Specialty Start Date End Date Iggy Sevilla MD [address] [place] [phone] PCP - General 03/24/11 12/19/18 documented as of this encounter
--- OUTSIDE RECORDS SUMMARY | 2024-05-24 14:21 | XMS_ITS | Encounter Summary ---
Author Organization [facility] Address [address] [place] [address] Care Team Providers Care Refrigerator Repairman Name Role Phone Iggy Sevilla MD Primary Care Provider [phone] Reason for Visit * Reason Onset Date Comments Procedure 04/04/2011 Encounter Details Date Type Department Care Team ([facility] st Contact Info) Description 04/04/2011 Pre-Procedure Orders Encounter [facility] Psychiatric Consultation Program - [address] [address] Juwan Sawant MD [address] [place] [address] [address] [place] [phone] Social History Tobacco Use Types Packs/Day Years [...] on filedocumented in this encounter Care Teams Refrigerator Repairman Relationship Specialty Start Date End Date Iggy Sevilla MD [address] [place] [phone] PCP - General 03/24/11 12/19/18 documented as of this encounter
--- OUTSIDE RECORDS SUMMARY | 2024-05-24 14:21 | XMS_ITS | Encounter Summary ---
Author Organization [facility] Address [address] [place] [address] Care Team Providers Care Disabilities Caregiver Name Role Phone Iggy Sevilla MD Primary Care Provider [phone] Reason for Visit * Reason Onset Date Comments Procedure 04/25/2011 Encounter Details Date Type Department Care Team (Late st Contact Info) Description 04/25/2011 Pre-Procedure Orders Encounter [facility] Psychiatric Consultation Program - [address] [address] Juwan Sawant MD [address] [place] [address] [address] [place] [phone] Social History Tobacco Use Types Packs/Day Years [...] on filedocumented in this encounter Care Teams Disabilities Caregiver Relationship Specialty Start Date End Date Iggy Sevilla MD [address] [place] [phone] PCP - General 03/24/11 12/19/18 documented as of this encounter
--- OUTSIDE RECORDS SUMMARY | 2024-05-24 14:21 | XMS_ITS | Encounter Summary ---
Author Organization [facility] Address [address] [place] [address] Care Team Providers Care Market President Name Role Phone Iggy Sevilla MD Primary Care Provider [phone] Reason for Visit * Reason Onset Date Comments Procedure 04/11/2011 Encounter Details Date Type Department Care Team ([facility] st Contact Info) Description 04/11/2011 Pre-Procedure Orders Encounter [facility] Psychiatric Consultation Program - [address] [address] Juwan Sawant MD [address] [place] [address] [address] [place] [phone] Social History Tobacco Use Types Packs/Day Years [...] on filedocumented in this encounter Care Teams Market President Relationship Specialty Start Date End Date Iggy Sevilla MD [address] [place] [phone] PCP - General 03/24/11 12/19/18 documented as of this encounter
--- OUTSIDE RECORDS SUMMARY | 2024-05-24 14:21 | XMS_ITS | Encounter Summary ---
Author Organization [facility] Address [address] [place] [address] Care Team Providers Care Registered Nurse Bone Marrow Transplant Name Role Phone Iggy Sevilla MD Primary Care Provider [phone] Reason for Visit * Reason Onset Date Comments Procedure 05/01/2011 Encounter Details Date Type Department Care Team (Late st Contact Info) Description 05/01/2011 Pre-Procedure Orders Encounter [facility] Psychiatric Consultation Program - [address] [address] Juwan Sawant MD [address] [place] [address] [address] [place] [phone] Social History Tobacco Use Types Packs/Day Years [...] filedocumented in this encounter Care Teams Registered Nurse Bone Marrow Transplant Relationship Specialty Start Date End Date Iggy Sevilla MD [address] [place] [phone] PCP - General 03/24/11 12/19/18 documented as of this encounter
--- OUTSIDE RECORDS SUMMARY | 2024-05-24 14:21 | XMS_ITS | Encounter Summary ---
Author Organization [facility] Address [address] [place] [address] Care Team Providers Care Security Systems Sales Representative Name Role Phone Iggy Sevilla MD Primary Care Provider [phone] Reason for Visit * Reason Onset Date Comments Procedure 04/24/2011 Encounter Details Date Type Department Care Team (Late st Contact Info) Description 04/24/2011 Pre-Procedure Orders Encounter [facility] Psychiatric Consultation Program - [address] [address] Juwan Sawant MD [address] [place] [address] [address] [place] [phone] Social History Tobacco Use Types Packs/Day Years [...] in this encounter Care Teams Security Systems Sales Representative Relationship Specialty Start Date End Date Iggy Sevilla MD [address] [place] [phone] PCP - General 03/24/11 12/19/18 documented as of this encounter
--- OUTSIDE RECORDS SUMMARY | 2024-05-24 14:21 | XMS_ITS | Encounter Summary ---
Author Organization [facility] Address [address] [place] [address] Care Team Providers Care Operations Research Director Name Role Phone None, Provider Primary Care Provider Iggy Linda MD Primary Care Provider [phone] Encounter Details Date Type Department Care Team ([facility] st Contact Info) Description 03/22/2011 17:44 EST - 05/05/2011 12:17 EST Hospital Encounter [facility] Inpatient Psychiatry Unit [address] [place] [address] Sajan Stanford MD [address] [facility] [address] [place] [address] Mary Jauregui MD Munson, Richard [...] of discharge: Mary Jauregui MD DISCHARGE DIAGNOSIS Kirkland I: Major Depression, single episode, with psychotic features. Kirkland II: Deferred Kirkland III: HTN, CAD s/p PCI with stent, type II DM, h/o nephrolithiasis, s/p cholecystectomy Kirkland IV: , unemployed, recently relocated Kirkland V: GAF on admission: 20 ; on [...] Mr. Santiago, who was discharged from the [facility] on 03/19/11 after a two [...] ultimately requiring voluntary inpatient psychiatric treatment in [place], [place], where Mr. Santiago and his had lived for many years. During that admission, Mr. Santiago was started on a regimen including duloxetine and mirtazapine. In May of 2010, at the end of that stay, Mr. Santiago's daughter travelled to [place], helped him sell his home, and moved him and his belongings to [place], where she rented an apartment in [place]. 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 Santiago has appeared progressively aimless and lacking in motivation. 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 Santiago has begun to sleep late and has become socially isolated. He seems hopeless and unhappy. In mid-February, when Mr. Sals symptoms became intolerable, he was assessed by a asphalt mixer at [facility], where he answered affirmatively to questions about suicidal ideation. An admission to the [facility] was arranged, and under the care of Dr. Banegas, Mr. Sals regimen was changed, and in place of duloxetine and mirtazapine, perphenazine, nortriptyline, and zolpidem were started. On 03/19/11, two weeks after admission, Mr. Santiago discharged against medical advice. That evening, he was transported to the [facility] ED again by his daughter, who was impressed with the intensityof her father's symptoms. He again underwent Crisis assessment. Mr. Santiago was discharged home, but was readmitted to [facility] the following morning (03/21/11) after being found [...] in italics.) The patient was admitted to [facility] Inpatient Psychiatry unit involuntarily. History was obtained [...] weaned appropriately. On 04/08, Perphenazine was discontinued. Mogvksfm48/30, Ativan was tapered and discontinuedon 04/29. Oxycodone- [...] Discharge Medications: Shahnaz Santiago Home Medication Instructions NANETTE:[id number] Printed on:05/06/112023 Medication Information aspirin chewable 81 [...] Disposition: To new apt near daughter in [facility] Discharge Plans/Follow-up Appointments: - Please keep your appointment on May 05 at 5pm with psychotherapist Vineet Caro. [address] [place] [address]. . - Please keep your appointment on May 22 at 1pm for medication management with Iggy Tenorio MD at [facility], [address] [place] [address]. . - Follow-up with Dr. Hampton (PCP) in [place] on June 10. Mental Health Crisis Services: [facility] Prescriptions sent to [facility] in [place] [facility]. Total time spent on day of discharge: 40 min Mary Jauregui MD Attending Psychiatrist cc: Iggy Tenorio MD [facility], [place] documented in this encounter Discharge Instructions * Discharge Instructions* Josue Ward MD - 05/05/2011 11:42 EST Additional Medication Instructions: Do not use alcohol Do no use illicit drugs Do not take any medications that were not prescribed Consult with a physician before starting any new herbal supplements or ugwy-oxq-pcjyhsq medications, as some of these may interact with your prescribed medication. Discharge Plans/Follow-up Appointments: - Please keep your appointment on May 05 at 5pm with psychotherapist Vineet Caro. [address] [place] [address]. . - Please keep your appointment on May 22 at 1pm for medication management with Iggy Tenorio MD at [facility], [address] [place] [address]. . - Follow-up with Dr. Hampton (PCP) in [facility] on June 10. Mental Health Crisis Services: [facility] Prescriptions sent to [facility] in [place] [facility]. documented in this encounter Medications at Time [...] documented in this encounter Progress Notes * BENCH ASSEMBLER ELECTRICAL, LIYA 2 - 07/23/2011 1031 EDT * Cook Helper Vegetable, Liya - 05/13/2011 0839 EST * Katarzyna [...] 05/05/2011 1024 EST Active Multi-Disciplinary problems: NUTRITION [248527] (04/07/11) Patient Active Problem List Diagnoses ??? Diabetes mellitus ??? Major depression ??? CAD (coronary artery disease) ??? Nephrolithiasis Data: Remained somewhat depressed and anxious about discharge today. Stated that he felt much better at time of discharge. Fingerstick was 120 at 0803. Packed his belongings and [place] and needles were returned to patient. Medications were called into the [facility] in [place]. Was discharged by Dr. Ward. Action: Assess [...] came to drive her father home to [facility]. Left at 1217 with belongings and his daughter. Tamika Cordero RN 05/05/2011 10:25 * Shahnaz Lou MD - 05/04/2011 1229 EST ATTENDING SEISMOGRAPH OPERATOR NOTE REASON FOR HOSPITALIZATION: Depression HOSPITAL DAY: 43 INTERIM HISTORY: Had ECT Thursday, slept 7 hours last night after taking ambien and atarax. Says he feels much better than when I came in and is looking forward to discharge sometime this coming week. Plans to have an apartment in [facility] near his daughter. Says he has been [...] next week Shahnaz Lou MD Attending Psychiatrist health education director Pager [phone] * Shahnaz Lou MD - 05/03/2011 1346 EST ATTENDING SEISMOGRAPH OPERATOR NOTE REASON FOR HOSPITALIZATION: Depression HOSPITAL DAY: 42 INTERIM HISTORY: Had ECT yesterday, slept 7 hours last night. Says he feels much better than when I came in and is looking forward to discharge sometime this coming week. Plans to [place] an apartment[place] [facility] near his daughter. EXAM: Elderly looking man [...] next week Shahnaz Lou MD Attending Psychiatrist health education director Pager [phone] * Alice Fatima RN - 05/03/2011 0917 EST Active Multi-Disciplinary problems: ALTERED THOUGHT PROCESSES [606459] (03/22/11) ALTERATION IN SLEEP [823621] (03/23/11) KNOWLEDGE DEFICIT [434521] (04/07/11) NUTRITION [502132] (04/07/11) RISK FOR INFECTION [721850] (04/07/11) GLYCEMIA IMBALANCE [772943] (04/07/11) ANXIETY [496380] (04/09/11) Ineffective Coping [942891] (04/09/11) SELF CARE DEFICIT [046953] (04/09/11) ALTERATION IN MOOD [897590] (04/09/11) Discharge Planning [154609] (04/27/11) Data: The pt is unable to [...] 10 mg Oral QHS ??? influenza vaccine [id number] (PF) (FLUZONE) 45 mcg (15 mcg x [...] Fingerstick 153 (*) 70 - 100 (mg/dl) Assembly Detailer ID [id number] GLUCOSE, GLUCOMETER Collection Time 05/01/11 2051 Component Value Range Glucose, Fingerstick 184 (*) 70 - 100 (mg/dl) Assembly Detailer ID [id number] GLUCOSE, GLUCOMETER Collection Time 05/02/11 0830 Component Value Range Glucose, Fingerstick 125 (*) 70 - 100 (mg/dl) Assembly Detailer ID [id number] GLUCOSE, GLUCOMETER Collection Time 05/02/11 1155 Component Value Range Glucose, Fingerstick 283 (*) 70 - 100 (mg/dl) Assembly Detailer ID [id number] Assessment/Formulation: Mr. Santiago is a 60-year-old man [...] looks forward to therapy as anoutpatient. Diagnosis: Kirkland I: Major depression, recurrent, with psychotic features. Kirkland II: Deferred Kirkland III: HTN, CAD s/p PCI with stent, [...] the resident's note. MARY JAUREGUI MD Pager [phone] Attending, Inpatient Psychiatry, [facility] * Mary Jauregui MD - 05/01/2011 2013 [...] He did not want to see a project account manager when offered (he already had seen one and said he had a book to help him with meals). 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 He also spoke with pride about taking a overcaster class (which required an application and interview [...] 10 mg Oral QHS ??? influenza vaccine [id number] (PF) (FLUZONE) 45 mcg (15 mcg x [...] Fingerstick 142 (*) 70 - 100 (mg/dl) Assembly Detailer ID [id number] GLUCOSE, GLUCOMETER Collection Time 05/01/11 0801 Component Value Range Glucose, Fingerstick 124 (*) 70 - 100 (mg/dl) Assembly Detailer ID [id number] GLUCOSE, GLUCOMETER Collection Time 05/01/11 1203 Component Value Range Glucose, Fingerstick 124 (*) 70 - 100 (mg/dl) Assembly Detailer ID [id number] GLUCOSE, GLUCOMETER Collection Time 05/01/11 1657 Component Value Range Glucose, Fingerstick 153 (*) 70 - 100 (mg/dl) Assembly Detailer ID [id number] Assessment/Formulation: Mr. Santiago is a 60-year-old man [...] but will consider trying again tomorrow. Diagnosis: Kirkland I: Major depression, recurrent, with psychotic features. Kirkland II: Deferred Kirkland III: HTN, CAD s/p PCI with stent, [...] the resident's note. MARY JAUREGUI MD Pager [phone] Attending, Inpatient Psychiatry, [facility] * Gil Tamika M - 05/01/2011 4425 EST Active Multi-Disciplinary problems: ALTERED THOUGHT PROCESSES [706289] (03/22/11) ALTERATION IN SLEEP [300940] (03/23/11) KNOWLEDGE DEFICIT [581079] (04/07/11) NUTRITION [917658] (04/07/11) RISK FOR INFECTION [342353] (04/07/11) GLYCEMIA IMBALANCE [168184] (04/07/11) ANXIETY [234515] (04/09/11) Ineffective Coping [155334] (04/09/11) SELF CARE DEFICIT [593994] (04/09/11) ALTERATION IN MOOD [856540] (04/09/11) Discharge Planning [740474] (04/27/11) Patient Active Problem List Diagnoses ??? Diabetes mellitus ??? Major depression ??? CAD (coronary artery disease) ??? Nephrolithiasis Data: Will be npo after midnight for ECT in the morning. Give no benzos after 1900. Will need a maria isabel prior to leaving for treatment. Kendrick ready for discharge on Thursday and continued [...] oriented. Tamika Cordero RN 05/01/2011 14:17 * Nixno Schwartz LICSW - 05/01/2011 1309 EST [facility] Electroconvulsive Therapy Service Cognition & Depression Rating Date of Service: 05/01/2011 Time: 1300 Duration of Service: 20 minutes Folstein MMSE Total Score (Max. Total=27): 27 Level of Consciousness: Alert. Reasoning: intact Judgement: good Fund of Knowledge: access representative Diagnosis code: 296.34 Total MADRS Score [...] [employer] group and worked on coloring Crowdzus. He chatted with another patient about their [...] he wonders if he should be ain long term, but knows he is too young. He [...] History Update: Pt will move into new [facility] that is located near his daughter. Current [...] 10 mg Oral QHS ??? influenza vaccine [id number] (PF) (FLUZONE) 45 mcg (15 mcg x [...] Fingerstick 206 (*) 70 - 100 (mg/dl) Assembly Detailer ID [id number] GLUCOSE, GLUCOMETER Collection Time 04/30/11 0832 Component Value Range Glucose, Fingerstick 105 (*) 70 - 100 (mg/dl) Assembly Detailer ID [id number] GLUCOSE, GLUCOMETER Collection Time 04/30/11 1222 Component Value Range Glucose, Fingerstick 169 (*) 70 - 100 (mg/dl) Assembly Detailer ID [id number] GLUCOSE, GLUCOMETER Collection Time 04/30/11 1655 Component Value Range Glucose, Fingerstick 155 (*) 70 - 100 (mg/dl) Assembly Detailer ID [id number] Assessment/Formulation: Mr. Santiago is a 60-year-old man [...] his move into his new apt. Diagnosis: Kirkland I: Major depression, recurrent, with psychotic features. Kirkland II: Deferred Kirkland III: HTN, CAD s/p PCI with stent, [...] the resident's note. MARY JAUREGUI MD Pager [phone] Attending, Inpatient Psychiatry, [facility] * Stacy Holder - 04/29/2011 2511 EST Grief and Anger Group: S/O: Pt [...] Denies SI now. Insight and judgment fair. Bladen [address] Ward BP 101/63 Pulse [...] and discharge planning. MARY JAUREGUI MD Pager [phone] Attending, Inpatient Psychiatry, [facility] . * Fantasma Barrera - 04/28/20112049 EST [...] 10 mg Oral QHS ??? influenza vaccine [id number] (PF) (FLUZONE) 45 mcg (15 mcg x [...] Fingerstick 256 (*) 70 - 100 (mg/dl) Assembly Detailer ID [id number] GLUCOSE, GLUCOMETER Collection Time 04/28/11 0745 Component Value Range Glucose, Fingerstick 110 (*) 70 - 100 (mg/dl) Assembly Detailer ID [id number] GLUCOSE, GLUCOMETER Collection Time 04/28/11 1221 Component Value Range Glucose, Fingerstick 250 (*) 70 - 100 (mg/dl) Assembly Detailer ID [id number] GLUCOSE, GLUCOMETER Collection Time 04/28/11 1705 Component Value Range Glucose, Fingerstick 143 (*) 70 - 100 (mg/dl) Assembly Detailer ID [id number] Assessment/Formulation: Mr. Santiago is a 60-year-old man [...] to d/c tomorrow. Sylvia spoke with ECT oracle adf consultant Jese who suggested waiting until MADRAS score comes up a bit more. Family meeting tomorrow. Resolution of living situation will make big impact. Good pass over weekend, though he was anxious about it initially. Discussed risk and benefits of increasing Nortriptyline. Will conitnue current dose at this time to minimize risk and side effects. Diagnosis: Kirkland I: Major depression, recurrent, with psychotic features. Kirkland II: Deferred Kirkland III: HTN, CAD s/p PCI with stent, [...] the resident's note. MARY JAUREGUI MD Pager [phone] Attending, Inpatient Psychiatry, [facility] * Barbie Jama RN - 04/28/2011 0936 [...] 10 mg Oral QHS ??? influenza vaccine [id number] (PF) (FLUZONE) 45 mcg (15 mcg x [...] 10 mg Oral QHS ??? influenza vaccine [id number] (PF) (FLUZONE) 45 mcg (15 mcg x [...] and reflections on the readings that the cpc coder presented. A: Engaged, open, introspective P: To [...] 10 mg Oral QHS ??? influenza vaccine [id number] (PF) (FLUZONE) 45 mcg (15 mcg x [...] 24 hour(s)) GLUCOSE, GLUCOMETER Collection Time 04/24/11 8863 Component Value Range Glucose, Fingerstick 189 (*) 70 - 100 (mg/dl) Assembly Detailer ID [id number] GLUCOSE, GLUCOMETER Collection Time 04/24/11 2052 Component Value Range Glucose, Fingerstick 283 (*) 70 - 100 (mg/dl) Assembly Detailer ID [id number] GLUCOSE, GLUCOMETER Collection Time 04/25/11 0819 Component Value Range Glucose, Fingerstick 96 70 - 100 (mg/dl) Assembly Detailer ID [id number] GLUCOSE, GLUCOMETER Collection Time 04/25/11 1322 Component Value Range Glucose, Fingerstick 136 (*) 70 - 100 (mg/dl) Assembly Detailer ID [id number] Assessment/Formulation: Mr. Santiago is a 60-year-old man [...] weather worsens (he is relatively new to [place]). Diagnosis: Kirkland I: Major depression, recurrent, with psychotic features. Kirkland II: Deferred Kirkland III: HTN, CAD s/p PCI with stent, [...] 25 minutes KARINA LUU MD Attending Psychiatrist [facility] Pager [phone] * Chen Vázquez RN - 04/25/2011 0936 [...] is looking into additional housing options in [place] [facility] where she lives. Although he desires to be closer to his daughter, he still worries about paying for an apt and about dealing with the weather in [place]. He notes he has an appointment with a counselor in [place], Dewayne James, later this month. Social History Update: See update above. Also, he notes he grew up on [facility] andspent time moving because of his job: living in [place], [facility] [place] [facility] [place], and [place]. Current Facility-Administered Medications Medication Route Frequency ??? [...] 10 mg Oral QHS ??? influenza vaccine [id number] (PF) (FLUZONE) 45 mcg (15 mcg x [...] Fingerstick 248 (*) 70 - 100 (mg/dl) Assembly Detailer ID [id number] GLUCOSE, GLUCOMETER Collection Time 04/24/11 0813 Component Value Range Glucose, Fingerstick 126 (*) 70 - 100 (mg/dl) Assembly Detailer ID [id number] GLUCOSE, GLUCOMETER Collection Time 04/24/11 1152 Component Value Range Glucose, Fingerstick 100 70 - 100 (mg/dl) Assembly Detailer ID [id number] GLUCOSE, GLUCOMETER Collection Time 04/24/11 1717 Component Value Range Glucose, Fingerstick 189 (*) 70 - 100 (mg/dl) Assembly Detailer ID [id number] Assessment/Formulation: Mr. Santiago is a 60-year-old man [...] it will be stopped before discharge). Diagnosis: Kirkland I: Major depression, recurrent, with psychotic features. Kirkland II: Deferred Kirkland III: HTN, CAD s/p PCI with stent, [...] 25 minutes KARINA LUU MD Attending Psychiatrist [facility] [phone] * Nixon Schwartz, [facility] - 04/24/2011 4132 EST [facility] Electroconvulsive Therapy Service Cognition & Depression Rating Date of Service: 04/24/2011 Time: 1500 Duration of Service: 20 minutes Folstein MMSE Total Score (Max. Total=27): 27 Level of Consciousness: Alert. Reasoning: intact Judgement: good Fund of Knowledge: access representative Diagnosis code: 296.34 Total MADRS Score [...] appointment scheduled with therapist Dewayne James at [facility] in [facility] on May 20 at 11am. Cosigned by [...] twice before sought counseling support: once in [place] soon after his 's and this past summer in [place] (Dr. Ayala), a psychiatrist he was referred [...] to his day. Apparently, when living in [place], he played a large role in the [...] damn to them. The stepdaughter hired a dairy science teacher, as did the patient, and she was awarded 1/2 of the proceeds from the house. He does not want to reconcile with his stepdaughter, but he does hope for reconciliation with his grandchildren (18 and 21) as well as to be more actively involved in the lives of his biological grandchildren in [facility]. His mind often turned to his regrets [...] 10 mg Oral QHS ??? influenza vaccine [id number] (PF) (FLUZONE) 45 mcg (15 mcg x [...] Fingerstick 238 (*) 70 - 100 (mg/dl) Assembly Detailer ID [id number] GLUCOSE, GLUCOMETER Collection Time 04/23/11 0819 Component Value Range Glucose, Fingerstick 132 (*) 70 - 100 (mg/dl) Assembly Detailer ID [id number] GLUCOSE, GLUCOMETER Collection Time 04/23/11 0926 Component Value Range Glucose, Fingerstick 161 (*) 70 - 100 (mg/dl) Assembly Detailer ID [id number] GLUCOSE, GLUCOMETER Collection Time 04/23/11 1208 Component Value Range Glucose, Fingerstick 230 (*) 70 - 100 (mg/dl) Assembly Detailer ID [id number] Assessment/Formulation: Mr. Santiago is a 60-year-old man [...] anger/anxiety about the missed ECT session. Diagnosis: Kirkland I: Major depression, recurrent, with psychotic features. Kirkland II: Deferred Kirkland III: HTN, CAD s/p PCI with stent, [...] 25 minutes KARINA LUU MD Attending Psychiatrist [facility] Pager [phone] * OlegarioTramaine wade (At) - 04/23/2011 1516 EST Cognitive group: S/O: Patient participated in [...] and increase coping skills. * Katarzyna Rincon [facility] - 04/23/2011 0903 EST Social Work Progress Note Intervention/Service: Discharge planning Spoke with Mr. Santiago's daughter, Nkechi Weber ([phone]) who is concerned about her father'sslow progress. [...] him to return to his apartment in [place] - too isolated, and far from her, and he has no supports there. She wants him to move into [place] and she is looking for an apartment [...] follow-up, and agreed a referral [facility] in [place] makes sense. * Karina Luu MD - 04/22/2011 5097 EST Inpatient Psychiatry Daily Progress Note 04/22/2011 [...] his daughter in his current apt (in [place]) and would like to be closer to her ([facility]). Mood reported as OK. No difficulty with [...] 10 mg Oral QHS ??? influenza vaccine [id number] (PF) (FLUZONE) 45 mcg (15 mcg x [...] Fingerstick 256 (*) 70 - 100 (mg/dl) Assembly Detailer ID [id number] GLUCOSE, GLUCOMETER Collection Time 04/22/11 0802 Component Value Range Glucose, Fingerstick 138 (*) 70 - 100 (mg/dl) Assembly Detailer ID [id number] GLUCOSE, GLUCOMETER Collection Time 04/22/11 1148 Component Value Range Glucose, Fingerstick 158 (*) 70 - 100 (mg/dl) Assembly Detailer ID [id number] GLUCOSE, GLUCOMETER Collection Time 04/22/11 1657 Component Value Range Glucose, Fingerstick 180 (*) 70 - 100 (mg/dl) Assembly Detailer ID [id number] Assessment/Formulation: Mr. Santiago is a 60-year-old man [...] plan to discontinue them before D/C. Diagnosis: Kirkland I: Major depression, recurrent, with psychotic features. Kirkland II: Deferred Kirkland III: HTN, CAD s/p PCI with stent, [...] time: 35 minutes NB: [place] - Covering for Dr Jauregui. Chart reviewed. Treatment plan updated. KARINA LUU MD Attending Psychiatrist [facility] Pager [phone] * Tamika Cordero - 04/22/2011 1335 EST Active Multi-Disciplinary problems: ALTERED THOUGHT PROCESSES [776165] (03/22/11) ALTERATION IN SLEEP [862269] (03/23/11) KNOWLEDGE DEFICIT [491692] (04/07/11) NUTRITION [040240] (04/07/11) RISK FOR INFECTION [077167] (04/07/11) GLYCEMIA IMBALANCE [484073] (04/07/11) ANXIETY [533323] (04/09/11) Ineffective Coping [714816] (04/09/11) SELF CARE DEFICIT [450791] (04/09/11) ALTERATION IN MOOD [024691] (04/09/11) Patient Active Problem List Diagnoses ??? [...] and follow up [address] Pager [phone] * Lele Lee MD - 04/21/2011 8400 EST 04/21/2011 ATTENDING SEISMOGRAPH OPERATOR NOTE REASON FOR HOSPITALIZATION: depression HOSPITAL DAY: [...] ECT tomorrow. Lele Lee MD Attending Psychiatrist health education director Pager [phone] * Kailee Nobles RN - 04/20/2011 2304 EST 2304: Shahnaz in good spirits this elaina. Out in DR/ TV room entire shift. Watched the evening movie, watched a football game and ate dinner with peers. C/O mild anxiety which he received his prn ativanfor, with relief. Also requested A nicotrol cartridge x2. C/o 7/10 right shoulder pain which he received 1 percocet. * Leel Lee MD - 04/20/2011 1509 EST 04/20/2011 ATTENDING SEISMOGRAPH OPERATOR NOTE REASON FOR HOSPITALIZATION: depression HOSPITAL DAY: [...] continue ECT Lele Lee MD Attending Psychiatrist health education director Pager [phone] * Lele Lee MD - 04/19/2011 1204 EST 04/19/2011 ATTENDING SEISMOGRAPH OPERATOR NOTE REASON FOR HOSPITALIZATION: depression HOSPITAL DAY: [...] continue ECT Lele Lee MD Attending Psychiatrist health education director Pager [phone] * Mary Jauregui MD - 04/18/20111957 EST [...] 10 mg Oral QHS ??? influenza vaccine [id number] (PF) (FLUZONE) 45 mcg (15 mcg x [...] Fingerstick 214 (*) 70 - 100 (mg/dl) Assembly Detailer ID [id number] GLUCOSE, GLUCOMETER Collection Time 04/18/11 0801 Component Value Range Glucose, Fingerstick 132 (*) 70 - 100 (mg/dl) Assembly Detailer ID [id number] GLUCOSE, GLUCOMETER Collection Time 04/18/11 1334 Component Value Range Glucose, Fingerstick 88 70 - 100 (mg/dl) Assembly Detailer ID [id number] GLUCOSE, GLUCOMETER Collection Time 04/18/11 1651 Component Value Range Glucose, Fingerstick 191 (*) 70 - 100 (mg/dl) Assembly Detailer ID [id number] Assessment/Formulation: Mr. Santiago is a 60-year-old man [...] reducing Percocet to once daily prn. Diagnosis: Kirkland I: Major depression, recurrent, with psychotic features. Kirkland II: Deferred Kirkland III: HTN, CAD s/p PCI with stent, [...] the resident's note. MARY JAUREGUI MD Pager [phone] Attending, Inpatient Psychiatry, [facility] * Benito Lainez RN - 04/18/2011 5974 EST 843 - pt arrived pacu asleep - does not verbalize pain - no resp distress noted 915 - pt arousing, memo soda, denies pain - 925 Report called to [facility] 3RN; waitiing for hortensia BARKSDALE sign out 930 - pt ready for transfer to sb 3 * Yenny Brumfield - 04/17/2011 194 EST Games Group: S/O: Pt came to group approx midway after finishing his supper. He did not want to join in game of [employer], instead he preferred to work on his word search but he sat at the table with usand socialized as he worked on his puzzle, making jokes and laughing. A: Pt engaged with pleasant and zheng affect. Pt improving. P: To continue to participate in groups. * Nixon Schwartz LICSW - 04/17/2011 1556 EST [facility] Electroconvulsive Therapy Service Cognition & Depression Rating Date of Service: 04/17/2011 Time: 1500 Duration of Service: 20 minutes Folstein MMSE Total Score (Max. Total=27): 27 Level of Consciousness: Alert. Reasoning: intact Judgement: fair Fund of Knowledge: access representative Diagnosis code: 296.34 Total MADRS Score [...] 15:56 * Mary Jauregui MD - 04/17/2011 0953 EST Inpatient Psychiatry Daily Progress Note 04/17/2011 [...] with reality, which he experienced when at [facility] and which he attributes to perphenazine). He [...] to see his daughter (who lives in [facility]) again while he is in the hospital, [...] 10 mg Oral QHS ??? influenza vaccine [id number] (PF) (FLUZONE) 45 mcg (15 mcg x [...] Fingerstick 240 (*) 70 - 100 (mg/dl) Assembly Detailer ID [id number] GLUCOSE, GLUCOMETER Collection Time 04/16/11 1732 Component Value Range Glucose, Fingerstick 184 (*) 70 - 100 (mg/dl) Assembly Detailer ID [id number] GLUCOSE, GLUCOMETER Collection Time 04/16/11 2039 Component Value Range Glucose, Fingerstick 257 (*) 70 - 100 (mg/dl) Assembly Detailer ID [id number] GLUCOSE, GLUCOMETER Collection Time 04/17/11 0819 Component Value Range Glucose, Fingerstick 214 (*) 70 - 100 (mg/dl) Assembly Detailer ID [id number] Assessment/Formulation: Mr. Santiago is a 60-year-old man [...] ECT with no other med changes. Diagnosis: Kirkland I: Major depression, recurrent, with psychotic features. Kirkland II: Deferred Kirkland III: HTN, CAD s/p PCI with stent, [...] care as documented in the resident's note. 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 Current Facility-Administered Medications Medication Route [...] Oral AT BEDTIME PRN ??? influenza vaccine [id number] (PF) (FLUZONE) 45 mcg (15 mcg x [...] Fingerstick 169 (*) 70 - 100 (mg/dl) Assembly Detailer ID [id number] GLUCOSE, GLUCOMETER Collection Time 04/15/11 1652 Component Value Range Glucose, Fingerstick 235 (*) 70 - 100 (mg/dl) Assembly Detailer ID [id number] GLUCOSE, GLUCOMETER Collection Time 04/15/11 2117 Component Value Range Glucose, Fingerstick 149 (*) 70 - 100 (mg/dl) Assembly Detailer ID [id number] GLUCOSE, GLUCOMETER Collection Time 04/16/11 0805 Component Value Range Glucose, Fingerstick 147 (*) 70 - 100 (mg/dl) Assembly Detailer ID [id number] Assessment/Formulation: Mr. Santiago is a 60-year-old man [...] he had been on when hospitalized at [facility] in Feb 2011. Goals will be to continue ECT and try to taper lorazepam and oxycodone. Diagnosis: Kirkland I: Major depression, recurrent, with psychotic features. Kirkland II: Deferred Kirkland III: HTN, CAD s/p PCI with stent, [...] improvement in depression and response to treatment. Jouse Ward MD 04/16/2011 9:14 Psychiatry Attending Attestation: [...] the resident's note. MARY JAUREGUI MD Pager [phone] Attending, Inpatient Psychiatry, [facility] * Mary Jauregui MD - 04/15/2011 1659 EST 04/15/2011 ATTENDING SEISMOGRAPH OPERATOR NOTE REASON FOR HOSPITALIZATION: depression HOSPITAL DAY: LOS: 24 days INTERIM HISTORY: Events of past 24h reviewed with nursing staff. Lying on bed. Good pass with daughter to [employer]. Enjoyed his meal. Slept about 4 h. Up early, worked on word search, then back to nap. Anticipating ECT in AM. EXAM: In usual clothes. Calm, less negative today. Fair eye contact. Speech fluent. 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 Thought logical. Denies SI. Insight and judgment [...] treatment team. Mary Jauregui MD Attending Psychiatrist health education director Pager [phone] * Mary Jauregui MD - 04/14/2011 1650 EST 04/14/2011 ATTENDING SEISMOGRAPH OPERATOR NOTE REASON FOR HOSPITALIZATION: depression HOSPITAL DAY: [...] treatment team. Mary Jauregui MD Attending Psychiatrist health education director Pager [phone] * Katarzyna Rincon CSW - 04/14/2011 1509 [...] Oral AT BEDTIME PRN ??? influenza vaccine [id number] (PF) (FLUZONE) 45 mcg (15 mcg x [...] Oral AT BEDTIME PRN ??? influenza vaccine [id number] (PF) (FLUZONE) 45 mcg (15 mcg x [...] 04/12/2011 14:41 * Tamika Cordero - 04/11/2011 5872 EST Active Multi-Disciplinary problems: ALTERED THOUGHT PROCESSES [163259] (03/22/11) ALTERATION IN SLEEP [695863] (03/23/11) KNOWLEDGE DEFICIT [642276] (04/07/11) NUTRITION [633037] (04/07/11) RISK FOR INFECTION [001599] (04/07/11) GLYCEMIA IMBALANCE [694753] (04/07/11) ANXIETY [921493] (04/09/11) Ineffective Coping [441748] (04/09/11) SELF CARE DEFICIT [295027] (04/09/11) ALTERATION IN MOOD [245699] (04/09/11) Patient Active Problem List Diagnoses ??? [...] Oral AT BEDTIME PRN ??? influenza vaccine [id number] (PF) (FLUZONE) 45 mcg (15 mcg x [...] Fingerstick 226 (*) 70 - 100 (mg/dl) Assembly Detailer ID [id number] GLUCOSE, GLUCOMETER Collection Time 04/10/11 2109 Component Value Range Glucose, Fingerstick 280 (*) 70 - 100 (mg/dl) Assembly Detailer ID [id number] GLUCOSE, GLUCOMETER Collection Time 04/11/11 0758 Component Value Range Glucose, Fingerstick 106 (*) 70 - 100 (mg/dl) Assembly Detailer ID [id number] Assessment/Formulation: Mr. Santiago is a 60-year-old man [...] he had been on when hospitalized at [facility] in Feb 2011. However, his thoughts remain quite negative at this time. Willcontinue with nortriptyline and ECT. Diagnosis: Kirkland I: Major depression, recurrent, with psychotic features. Kirkland II: Deferred Kirkland III: HTN, CAD s/p PCI with stent, [...] the resident's note. MARY JAUREGUI MD Pager [phone] Attending, Inpatient Psychiatry, [facility] * Kim Davis - 04/10/2011 1800 EST [...] Oral AT BEDTIME PRN ??? influenza vaccine [id number] (PF) (FLUZONE) 45 mcg (15 mcg x [...] Fingerstick 221 (*) 70 - 100 (mg/dl) Assembly Detailer ID [id number] GLUCOSE, GLUCOMETER Collection Time 04/09/11 1211 Component Value Range Glucose, Fingerstick 218 (*) 70 - 100 (mg/dl) Assembly Detailer ID [id number] GLUCOSE, GLUCOMETER Collection Time 04/09/11 1729 Component Value Range Glucose, Fingerstick 168 (*) 70 - 100 (mg/dl) Assembly Detailer ID [id number] GLUCOSE, GLUCOMETER Collection Time 04/09/11 2120 Component Value Range Glucose, Fingerstick 295 (*) 70 - 100 (mg/dl) Assembly Detailer ID [id number] GLUCOSE, GLUCOMETER Collection Time 04/10/11 2667 Component Value Range Glucose, Fingerstick 221 (*) 70 - 100 (mg/dl) Assembly Detailer ID [id number] Other studies:N/A Assessment/Formulation: Mr. Shahnaz Santiago is a 60-year-old male with a past psychiatric history of major depression with onset following the of his in August of 2009, admitted after a serious intentional overdose. The patient was discharged from the [facility] on 03/19/11 after a two week stay for Depressive symptoms. The patient is currently midcycle through his first course of ECT. The patient endorses significant improvement in mood symptoms. Affect is more animated. Patient is engaging in futuristic thinking. Patient plans to continue with tri-weekly ECT treatments. No changes today. Diagnosis: Kirkland I: Major Depression, single episode, with psychotic features. Kirkland II: Deferred. Kirkland III: HTN, CAD s/p PCI with stent, [...] the resident's note. MARY JAUREGUI MD Pager [phone] Attending, Inpatient Psychiatry, [facility] * Mary Jauregui MD - 04/09/2011 0902 [...] Overnight nursing reports the patient attended the [employer] group where he was observed to be [...] Oral AT BEDTIME PRN ??? influenza vaccine [id number] (PF) (FLUZONE) 45 mcg (15 mcg x [...] Fingerstick 254 (*) 70 - 100 (mg/dl) Assembly Detailer ID [id number] GLUCOSE, GLUCOMETER Collection Time 04/08/11 1722 Component Value Range Glucose, Fingerstick 163 (*) 70 - 100 (mg/dl) Assembly Detailer ID [id number] GLUCOSE, GLUCOMETER Collection Time 04/08/11 2104 Component Value Range Glucose, Fingerstick 228 (*) 70 - 100 (mg/dl) Assembly Detailer ID [id number] GLUCOSE, GLUCOMETER Collection Time 04/09/11 0759 Component Value Range Glucose, Fingerstick 177 (*) 70 - 100 (mg/dl) Assembly Detailer ID [id number] Other studies:N/A Assessment/Formulation: Mr. Shahnaz Santiago is a 60-year-old male with a past psychiatric history of major depression with onset following the of his in August of 2009, admitted after a serious intentional overdose. The patient was discharged from the [facility] on 03/19/11 after a two [...] to continue with tri-weekly ECT treatments. Diagnosis: Kirkland I: Major Depression, single episode, with psychotic features. Kirkland II: Deferred Kirkland III: HTN, CAD s/p PCI with stent, [...] the resident's note. MARY JAUREGUI MD Pager [phone] Attending, Inpatient Psychiatry, [facility] * Fantasma Barrera. - 04/08/2011 1929 EST [...] Continues much more agreeable today. Social, cooperative. 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 [...] mgmt, weekend plan. MARY JAUREGUI MD Pager [phone] Attending, Inpatient Psychiatry, [facility] . * Nixon Schwartz, [facility] - 04/08/2011 1424 EST [facility] Electroconvulsive Therapy Service Cognition & Depression Rating Date of Service: 04/08/2011 Time: 1400 Duration of Service: 20 minutes Folstein MMSE Total Score (Max. Total=27): 27 Level of Consciousness: Alert. Reasoning: intact Judgement: fair Fund of Knowledge: access representative Diagnosis code: 296.34 Total MADRS Score [...] EST S/O:Pt attended Leisure group, utilizing the [employer] for leisure, recreation and relaxation. PT was [...] of treatment plan. MARY JAUREGUI MD Pager [phone] Attending, Inpatient Psychiatry, [facility] . * Stacy Holder - 04/07/2011 1633 EST Grief and Anger Group: S/O: Pt participated in the discussion of losses and spoke about the of his , his resignation from his job, and his move to [place]. Pt able to identify that watching his [...] * Lele Daley MD PhD - 04/06/2011 7532 EST 04/06/2011 ATTENDING SEISMOGRAPH OPERATOR NOTE PROBLEM (ID and CC): depression HOSPITAL [...] % 3 mL Intravenous Q8H influenza vaccine [id number] (PF) 0.5 mL Intramuscular ONCE nortriptyline 100 [...] his shoulder. Lele Daley MD,PHD Attending Psychiatrist health education director Pager [phone] * Lele Daley MD PhD - 04/05/2011 0604 EST 04/05/2011 ATTENDING SEISMOGRAPH OPERATOR NOTE PROBLEM (ID and CC): depression HOSPITAL [...] % 3 mL Intravenous Q8H influenza vaccine [id number] (PF) 0.5 mL Intramuscular ONCE nortriptyline 100 [...] his shoulder. Lele Daley MD,PHD Attending Psychiatrist health education director Pager [phone] * hernesto Nixon, [facility] - 04/04/2011 1444 EST [facility] Electroconvulsive Therapy Service Cognition & Depression Rating Date of Service: 04/04/2011 Time: 1200 Duration of Service: 20 minutes Folstein MMSE Total Score (Max. Total=27): 27 Level of Consciousness: Alert. Reasoning: intact Judgement: fair Fund of Knowledge: access representative Diagnosis code: 296.34 Total MADRS Score [...] in last elaina. EXAM: Dressed in tshirt [place] and akila pants. Sitting on bed, head [...] of treatment planning. MARY JAUREGUI MD Pager [phone] Attending, Inpatient Psychiatry, [facility] . * Benito Lainez RN - 04/04/2011 [...] more pleasant with night RN and in event planning intern shift. Irritable other parts of day, jimmy [...] of treatment planning. MARY JAUREGUI MD Pager [phone] Attending, Inpatient Psychiatry, [facility] . * Stacy Holder Elvis - 04/03/2011 1503 EST Writing for Health Group: S/O: Pt was sitting in the Group/ TV room finishing his lunch when the group started. 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 [...] CARE NOTE Re: Shahnaz Santiago Patient is Protestant and has been Anointed with the Sacrament of the Sick. Date 04/02/2011 Page or Referral ? - Referral Time of Page/Call - [phone] Location - Sp3 Sacraments given: - Follow up necessary - Yes Comfort Care / End of Life - No Note: Shahnaz requested a cpc coder visit. When I arrived he was feeling ill and did not want to see anyone. He was told that this cpc coder will return tomorrow. Signed Warren Pittslivan Protestant Sofa Inspector Pager [phone] * Mary Jauregui MD - 04/02/2011 0854 [...] 3 mL Intravenous Q8H ??? influenza vaccine [id number] (PF) (FLUZONE) 45 mcg (15 mcg x [...] Fingerstick 187 (*) 70 - 100 (mg/dl) Assembly Detailer ID [id number] GLUCOSE, GLUCOMETER Collection Time 04/01/11 1703 Component Value Range Glucose, Fingerstick 200 (*) 70 - 100 (mg/dl) Assembly Detailer ID [id number] GLUCOSE, GLUCOMETER Collection Time 04/01/11 2119 Component Value Range Glucose, Fingerstick 264 (*) 70 - 100 (mg/dl) Assembly Detailer ID [id number] GLUCOSE, GLUCOMETER Collection Time 04/02/11 0803 Component Value Range Glucose, Fingerstick 130 (*) 70 - 100 (mg/dl) Assembly Detailer ID [id number] Other studies:N/A Serum Nortriptyline level still pending. Assessment/Formulation: Mr. Shahnaz Santiago is a 60-year-old male with a past psychiatric history of major depression with onset following the of his in August of 2009, admitted after a serious intentional overdose. The patient was discharged from the [facility] on 03/19/11 after a two week stay for Depressive symptoms. The patient underwent his first course of ECT last and was found to be improved. The patient underwent ECT today. Depressed mood and thoughts of persist, but affect is slightly improved from admission. Trough Nortriptyline level is still pending. Patient plans to continue with tri- weekly ECT treatments. Diagnosis: Kirkland I: Major Depression, single episode, with psychotic features. Kirkland II: Deferred Kirkland III: HTN, CAD s/p PCI with stent, [...] the resident's note. MARY JAUREGUI MD Pager [phone] Attending, Inpatient Psychiatry, [facility] * Dewayne De León - 04/01/2011 1704 EST Cognitive Processes S/O: Reluctantly, patient read [...] participation * Mary Jauregui MD - 04/01/2011 9548 EST Inpatient Psychiatry Daily Progress Note 04/01/2011 [...] The patient was recently discharged from the [facility] on 03/19/11 after a two [...] 3 mL Intravenous Q8H ??? influenza vaccine [id number] (PF) (FLUZONE) 45 mcg (15 mcg x [...] Fingerstick 109 (*) 70 - 100 (mg/dl) Assembly Detailer ID [id number] GLUCOSE, GLUCOMETER Collection Time 03/31/11 2047 Component Value Range Glucose, Fingerstick 334 (*) 70 - 100 (mg/dl) Assembly Detailer ID [id number] GLUCOSE, GLUCOMETER Collection Time 04/01/11 0800 Component Value Range Glucose, Fingerstick 146 (*) 70 - 100 (mg/dl) Assembly Detailer ID [id number] GLUCOSE, GLUCOMETER Collection Time 04/01/11 1154 Component Value Range Glucose, Fingerstick 187 (*) 70 - 100 (mg/dl) Assembly Detailer ID [id number] Other studies:N/A Trough Nortriptyline level is in progress. Assessment/Formulation: Mr. Shahnaz Santiago is a 60-year-old male with a past psychiatric history of major depression with onset following the of his in August of 2009, admitted after a serious intentional overdose. The patient was discharged from the [facility] on 03/19/11 after a two week stay for Depressive symptoms. The patient underwent his first course of ECT last and was found to be improved. The patient plans to resume ECT tomorrow. Depressed mood and thoughts of persist, butaffect is slightly improved from admission. Trough Nortriptyline level is still pending. Diagnosis: Kirkland I: Major Depression, single episode, with psychotic features. Kirkland II: Deferred Kirkland III: HTN, CAD s/p PCI with stent, [...] the resident's note. MARY JAUREGUI MD Pager [phone] Attending, Inpatient Psychiatry, [facility] * Pastora Humphreys - 03/31/2011 1655 EST Social Work Progress Note Intervention/Service: Coordination of care The patient's daughter received permission from the court for the patient to proceed with ECT treatment. Dr. Jauregui will fax the consent form to the court on the morning of 04/01 as per the director of casework services's request. The patient may receive ECT late in on Sunday 04/01 but more likely on Thursday. The patient's daughter, Nkechi, was frustrated by miscommunication between the court, nursing and Dr. Jauregui regarding facilitating communication between Dr. Jauregui and the director of casework services. Spoke to Nkechi, the patient's daughter, and let her know that Dr. Jauregui was able to speak with the director of casework services before he left and that he was [...] The patient was recently discharged from the [facility] on 03/19/11 after a two [...] 3 mL Intravenous Q8H ??? influenza vaccine [id number] (PF) (FLUZONE) 45 mcg (15 mcg x [...] Fingerstick 257 (*) 70 - 100 (mg/dl) Assembly Detailer ID [id number] GLUCOSE, GLUCOMETER Collection Time 03/30/11 1654 Component Value Range Glucose, Fingerstick 171 (*) 70 - 100 (mg/dl) Assembly Detailer ID [id number] GLUCOSE, GLUCOMETER Collection Time 03/30/11 2058 Component Value Range Glucose, Fingerstick 238 (*) 70 - 100 (mg/dl) Assembly Detailer ID [id number] GLUCOSE, GLUCOMETER Collection Time 03/31/11 0839 Component Value Range Glucose, Fingerstick 128 (*) 70 - 100 (mg/dl) Assembly Detailer ID [id number] Other studies:N/A Assessment/Formulation: Mr. Shahnaz Santiago is a 60-year-old male with a past psychiatric history of major depression with onset following the of his in August of 2009, admitted after a serious intentional overdose. This is the third lifetime hospitalization for Mr. Santiago, who was discharged from the [facility] on 03/19/11 after a two week stay for Depressive symptoms. The patient underwent his first course of ECT last and was found to be improved. Late in the afternoon, the Attending did speak with a Cemetery Worker whereby the Legal parameters appear to be resolved. The patient has been without acute events. Depressed mood and thoughts of persist, but affect is slightly improved from admission. The patient is less isolative. No medication changes planned for today. Plan to continue ECT, with next treatment Thursday. Attending Discussed with [facility] [phone] and he amended guardianship order to include ECT. Faxed to unit. ECT team notified. Will put pato on schedule for Thursday. Diagnosis: Kirkland I: Major Depression, single episode, with psychotic features. Kirkland II: Deferred Kirkland III: HTN, CAD s/p PCI with stent, [...] the resident's note. MARY JAUREGUI MD Pager [phone] Attending, Inpatient Psychiatry, [facility] * Karina Luu MD - 03/30/2011 1141 EST 03/30/2011 ATTENDING SEISMOGRAPH OPERATOR NOTE REASON FOR HOSPITALIZATION: Depression HOSPITAL DAY: [...] treatment team. KARINA LUU MD Attending Psychiatrist health education director Pager [phone] * Karina Luu MD - 03/29/2011 0816 EST 03/29/2011 ATTENDING SEISMOGRAPH OPERATOR NOTE REASON FOR HOSPITALIZATION: Depression HOSPITAL DAY: [...] treatment team. KARINA LUU MD Attending Psychiatrist health education director Pager [phone] * Yenny Brumfield - 03/28/2011 1531 EST [...] done. * Mary Jauregui MD - 03/28/2011 0950 EST Inpatient Psychiatry Daily Progress Note 03/28/2011 [...] The patient was recently discharged from the [facility] on 03/19/11 after a two [...] 3 mL Intravenous Q8H ??? influenza vaccine [id number] (PF) (FLUZONE) 45 mcg (15 mcg x [...] Fingerstick 227 (*) 70 - 100 (mg/dl) Assembly Detailer ID [id number] GLUCOSE, GLUCOMETER Collection Time 03/27/11 1446 Component Value Range Glucose, Fingerstick 224 (*) 70 - 100 (mg/dl) Assembly Detailer ID [id number] GLUCOSE, GLUCOMETER Collection Time 03/27/11 1711 Component Value Range Glucose, Fingerstick 200 (*) 70 - 100 (mg/dl) Assembly Detailer ID [id number] GLUCOSE, GLUCOMETER Collection Time 03/27/11 2110 Component Value Range Glucose, Fingerstick 175 (*) 70 - 100 (mg/dl) Assembly Detailer ID [id number] GLUCOSE, GLUCOMETER Collection Time 03/28/11 0815 Component Value Range Glucose, Fingerstick 119 (*) 70 - 100 (mg/dl) Assembly Detailer ID [id number] Other studies:N/A Assessment/Formulation: Mr. Shahnaz Santiago is a 60-year-old male with a past psychiatric history of major depression with onset following the of his in August of 2009, admitted after a serious intentional overdose. This is the third lifetime hospitalization for Mr. Santiago, who was discharged from the [facility] on 03/19/11 after a two [...] visit to court. ECT postponed Thu. Diagnosis: Kirkland I: Major Depression, single episode, with psychotic features. Kirkland II: Deferred Kirkland III: HTN, CAD s/p PCI with stent, [...] the resident's note. MARY JAUREGUI MD Pager [phone] Attending, Inpatient Psychiatry, [facility] * Yenny Brumfield - 03/27/2011 194 EST Games Group: S/O: Pt joined in game of [employer]. He had not played before, although he [...] The patient was recently discharged from the [facility] on 03/19/11 after a two [...] 3 mL Intravenous Q8H ??? influenza vaccine [id number] (PF) (FLUZONE) 45 mcg (15 mcg x [...] Fingerstick 186 (*) 70 - 100 (mg/dl) Assembly Detailer ID [id number] GLUCOSE, GLUCOMETER Collection Time 03/26/11 1717 Component Value Range Glucose, Fingerstick 160 (*) 70 - 100 (mg/dl) Assembly Detailer ID [id number] GLUCOSE, GLUCOMETER Collection Time 03/26/11 2101 Component Value Range Glucose, Fingerstick 259 (*) 70 - 100 (mg/dl) Assembly Detailer ID [id number] GLUCOSE, GLUCOMETER Collection Time 03/27/11 0141 Component Value Range Glucose, Fingerstick 194 (*) 70 - 100 (mg/dl) Assembly Detailer ID [id number] GLUCOSE, GLUCOMETER Collection Time 03/27/11 0804 Component Value Range Glucose, Fingerstick 162 (*) 70 - 100 (mg/dl) Assembly Detailer ID [id number] GLUCOSE, GLUCOMETER Collection Time 03/27/11 1152 Component Value Range Glucose, Fingerstick 227 (*) 70 - 100 (mg/dl) Assembly Detailer ID [id number] Other studies:N/A Assessment/Formulation: Mr. Shahnaz Santiago is a 60-year-old male with a past psychiatric history of major depression with onset following the of his in August of 2009, admitted after a serious intentional overdose. This is the third lifetime hospitalization for Mr. Santiago, who was discharged from the [facility] on 03/19/11 after a two [...] increase in his dosage of Perphenazine. Diagnosis: Kirkland I: Major Depression, single episode, with psychotic features Kirkland II: deferred Kirkland III: HTN, CAD s/p PCI with stent, [...] session of ECT. MARY JAUREGUI MD Pager [phone] Attending, Inpatient Psychiatry, [facility] * Danyell Salmeron - 03/27/2011 1117 EST [...] continue to participate in groups. * [facility] 1524 EST [facility] Electroconvulsive Therapy Service Cognition & Depression Rating Date of Service: 03/26/2011 Time: 1400 Duration of Service: 40 minutes Folstein MMSE Total Score (Max. Total=27): 26 Level of Consciousness: Alert. Reasoning: intact abstraction Judgement: poor Fund of Knowledge: access representative Diagnosis code: 296.34 Total MADRS Score [...] The patient was recently discharged from the [facility] on 03/19/11 after a two [...] Medications Medication Route Frequency ??? influenza vaccine [id number] (PF) (FLUZONE) 45 mcg (15 mcg x [...] Fingerstick 240 (*) 70 - 100 (mg/dl) Assembly Detailer ID [id number] GLUCOSE, GLUCOMETER Collection Time 03/25/11 1653 Component Value Range Glucose, Fingerstick 171 (*) 70 - 100 (mg/dl) Assembly Detailer ID [id number] GLUCOSE, GLUCOMETER Collection Time 03/25/11 2052 Component Value Range Glucose, Fingerstick 299 (*) 70 - 100 (mg/dl) Assembly Detailer ID [id number] GLUCOSE, GLUCOMETER Collection Time 03/26/11 0810 Component Value Range Glucose, Fingerstick 121 (*) 70 - 100 (mg/dl) Assembly Detailer ID [id number] Other studies:N/A Assessment/Formulation: Mr. Shahnaz Santiago is a 60-year-old male with a past psychiatric history of major depression with onset following the of his in August of 2009, admitted involuntarily after ingesting #27 10 mg Zolpidem tablets in attempt to suicide. This is the third lifetime hospitalization for Mr. Santiago, who was discharged from the [facility] on 03/19/11 after a two [...] ECT treatment. No medication changes today. Diagnosis: Kirkland I: Major Depression, single episode, with psychotic features Kirkland II: deferred Kirkland III: HTN, CAD s/p PCI with stent, [...] the resident's note. MARY JAUREGUI MD Pager [phone] Attending, Inpatient Psychiatry, [facility] * Dewayne De León - 03/25/2011 1709 [...] The patient was recently discharged from the [facility] on 03/19/11 after a two [...] Medications Medication Route Frequency ??? influenza vaccine [id number] (PF) (FLUZONE) 45 mcg (15 mcg x [...] Fingerstick 237 (*) 70 - 100 (mg/dl) Assembly Detailer ID [id number] GLUCOSE, GLUCOMETER Collection Time 03/25/11 0924 Component Value Range Glucose, Fingerstick 153 (*) 70 - 100 (mg/dl) Assembly Detailer ID [id number] GLUCOSE, GLUCOMETER Collection Time 03/25/11 1157 Component Value Range Glucose, Fingerstick 240 (*) 70 - 100 (mg/dl) Assembly Detailer ID [id number] GLUCOSE, GLUCOMETER Collection Time 03/25/11 1653 Component Value Range Glucose, Fingerstick 171 (*) 70 - 100 (mg/dl) Assembly Detailer ID [id number] Other studies:N/A Assessment/Formulation: Mr. Shahnaz Santiago is a 60-year-old male with a past psychiatric history of major depression with onset following the of his in August of 2009, admitted involuntarily after ingesting #27 10 mg Zolpidem tablets in attempt to suicide. This is the third lifetime hospitalization for Mr. Santiago, who was discharged from the [facility] on 03/19/11 after a two [...] is very likely appropriate for ECT. Diagnosis: Kirkland I: Major Depression, single episode, with psychotic features Kirkland II: deferred Kirkland III: HTN, CAD s/p PCI with stent, [...] the resident's note. MARY JAUREGUI MD Pager [phone] Attending, Inpatient Psychiatry, [facility] * Katarzyna Rincon [facility] - 03/25/2011 7669 EST Psychosocial Assessment Presenting Problems: 60 year [...] and that he wants to be in [place] to be close to his daughter and grandchildren. He thought about the harm a suicide would do to his family and he said, I don't want to go out like that. Current Living Situation/Housing: Has an apartment in [place], [place]. Family/Support System and Contact Telephone Numbers: Daughter and grandchildren in the area. Daughter -Nkechi Weber [phone]. Family Constellation/Pertinent Family History: Raised in [place]. Father was an alcoholic. Moved in [place] in the 70s and then later moved to [place] with second who Shahnaz describes as sarcastic. Johanna in 2009 of cancer. Mr. Santiago has come to [place] from [place] to be closer to his daughter and her family. Other Social Supports: Very limited in this area. Education/Employment Financial: Technical training Substance Abuse and Treatment History: None currently - stopped many years ago. Mental Health Treatment History: Further assessment needed. Wants a referral to [facility]. Mental Health and Other Providers: Referral to [facility] Legal Issues: None known Spiritual/Nondenominational/Cultural Considerations: Not known - further assessment needed. [...] for work atthis time. 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 Recently lost [...] EST S/O:Pt attended Leisure group utilizing the [employer] for recreation, relaxation and socialization. Pt appeared [...] groups. * Mary Jauregui MD - 03/24/2011 6780 EST Inpatient Psychiatry Daily Progress Note 03/24/2011 [...] Mr. Santiago, who was discharged from the [facility] on 03/19/11 after a two [...] acute concerns. Phone conference call with daughter. [place] discharge was related to plan hehad with daughter to seek help elsewhere. Past Family/Social History Update: The Attending and Social Work did talk with the patient's daughter whereby collateral information was obtained. Current Facility-Administered Medications Medication Route Frequency ??? influenza vaccine [id number] (PF) (FLUZONE) 45 mcg (15 mcg x [...] Fingerstick 170 (*) 70 - 100 (mg/dl) Assembly Detailer ID [id number] GLUCOSE, GLUCOMETER Collection Time 03/24/11 0907 Component Value Range Glucose, Fingerstick 138 (*) 70 - 100 (mg/dl) Assembly Detailer ID [id number] URINALYSIS Collection Time 03/24/11 0922 Component Value Range Color, UA Yellow Clarity, UA Clear Glucose, UA Neg Neg Bilirubin, UA Neg Neg Ketones, UA Neg Neg Specific [place], Urine 1.010 1.001 - 1.035 Blood, UA [...] Fingerstick 236 (*) 70 - 100 (mg/dl) Assembly Detailer ID [id number] GLUCOSE, GLUCOMETER Collection Time 03/24/11 1652 Component Value Range Glucose, Fingerstick 251 (*) 70 - 100 (mg/dl) Assembly Detailer ID [id number] Other studies:N/A Assessment/Formulation: Mr. Shahnaz Santiago is a 60-year-old male with a past psychiatric history of major depression with onset following the of his in August of 2009, admitted involuntarily after ingesting #27 10 mg Zolpidem tablets in attempt to suicide. This is the third lifetime hospitalization for Mr. Santiago, who was discharged from the [facility] on 03/19/11 after a two week stay for Depressive symptoms. He endorses Depressed mood today, but denies suicidal ideation. He is appropriate for conversion to voluntary status. ECT consultation is placed. The Nortriptyline will be increased to 100 mg. will defer Neuro workup/head imaging at this time as the presentation seems c/w MDE. Will reass ess as appropriate. Diagnosis: Kirkland I: Major Depression, single episode, with psychotic features Kirkland II: deferred Kirkland III: HTN, CAD s/p PCI with stent, [...] the resident's note. MARY JAUREGUI MD Pager [phone] Attending, Inpatient Psychiatry, [facility] * Dewayne De León - 03/24/2011 1733 [...] Navid Gutierrez MD - 03/23/2011 1207 EST residential construction instructor on-call note Date: 03/23/2011 Time: 12:07 BP [...] Stanford, Psychiatry attending MD. Navid Gutierrez MD #[id number] * Olegario (At)Tramaine - 03/23/2011 0841 EST Department of Psychiatry-Inpatient Psychiatry Activities Therapy Assessment Diagnosis: Multiaxial Diagnostic Impression (including Differential Diagnosis) Kirkland I: Major Depression, single episode, with psychotic features Kirkland II: deferred Kirkland III: HTN, CAD s/p PCI with stent, type II DM, h/o nephrolithiasis, s/p cholecystectomy Kirkland IV: , unemployed, recently relocated, lives alone Kirkland V: 21-30 behavior considerably influenced by delusions [...] Stanford MD - 03/23/2011 0835 EST ATTENDING SEISMOGRAPH OPERATOR NOTE REASON FOR HOSPITALIZATION: Depression. HOSPITAL DAY: LOS: 1 day INTERIM HISTORY: Trazodone for sleep. Cooperative with care. See admission note for complete history, etc. BP 170/93 Pulse 77 Temp(Src) 35.6 ??C (96.1 ??F) (Tympanic) Ht 185.4 cm (72.99) Wt 101.969kg (224 lb 12.8 oz) BMI 29.67 kg/m2 ASSESSMENT: See admission note. PLAN: See admission note. SAJAN STANFORD MD Attending Psychiatrist health education director Pager [phone] documented in this encounter H&P Notes * Sajan Stanford MD - 03/22/2011 1900 EST Inpatient Admission Psychiatric Evaluation Admit Date: 03/22/2011 Date Of service: 03/22/2011 Referral source: [facility] Outpatient providers: Huang Welsh NP PCP: Dr. Sevilla Information Obtained from: patient, patient's daughter, paperwork, [facility] records Legal Status: Admission is involuntary Chief [...] Mr. Santiago, who was discharged from the [facility] on 03/19/11 after a two [...] ultimately requiring voluntary inpatient psychiatric treatment in [place], [place], where Mr. Santiago and his had lived for many years. During that admission, Mr. Santiago was started on a regimen including duloxetine and mirtazapine. In May of 2010, at the end of that stay, Mr. Santiago's daughter travelled to [place], helped him sell his home, and moved him and his belongings to [place], where she rented an apartment in [place]. 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 Santiago has appeared progressively aimless and lacking in motivation. 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 Santiago has begun to sleep late and has become socially isolated. He seems hopeless and unhappy. In mid-February, when Mr. Sals symptoms became intolerable, he was assessed by a asphalt mixer at [facility], where he answered affirmatively to questions about suicidal ideation. An admission to the [facility] [place] [facility] was arranged, and under the care of Dr. Banegas, Mr. Sals regimen was changed, and in place of duloxetine and mirtazapine, perphenazine, nortriptyline, and zolpidem were started. On 03/19/11, two weeks after admission, Mr. Santiago discharged against medical advice. That evening, he was transported to the [facility] ED again by his daughter, who was impressed with the intensityof her father's symptoms. He again underwent Crisis assessment. Mr. Santiago was discharged home, but was readmitted to [facility] the following morning (03/21/11) after being found [...] Source: unemployed : none Legal history: None Zoroastrianism: did not discuss Ethnic and Cultural factors: none Other requests: none Significant Developmental / Childhood/ Social history: Raised in [place]. Had an alcoholic father. Moved to [place] in the 70s. Later moved to [place] with his second (Johanna), who was reportedly [...] Fingerstick 215 (*) 70 - 100 (mg/dl) Assembly Detailer ID [id number] Physical Exam: General appearance: alert, slowed mentation, [...] for educational level Short Term Memory: intact Balance Wheel Arm Burnisher Memory: intact Capacity for Abstraction: intact Assessment: [...] presentation. Multiaxial Diagnostic Impression (including Differential Diagnosis) Kirkland I: Major Depression, single episode, with psychotic features Kirkland II: deferred Kirkland III: HTN, CAD s/p PCI with stent, type II DM, h/o nephrolithiasis, s/p cholecystectomy Kirkland IV: , unemployed, recently relocated, lives alone Kirkland V: 21-30 behavior considerably influenced by delusions [...] sent along with the clinician's EE paperwork. [facility] should be contacted to obtain this. [...] documented in this encounter Procedure Notes * Cook Helper Vegetable, Scan - 05/13/2011 0839 ESTAssociated Order(s): ECG REPORT - SCANNED * Cook Helper Vegetable, Scan - 04/07/2011 0808 ESTAssociated Order(s): ECG REPORT - SCANNED * Cook Helper Vegetable, Scan - 03/26/2011 0711 ESTAssociated Order(s): ECG REPORT - SCANNED documented in this encounter Consult Notes * Benito Mejia RD - 04/04/2011 1447 ESTAssociated Order(s): CONSULT NUTRITION Nutrition consult for [...] and follow up BENITO MEJIA RD Pager [phone] * Juwan Walter MD - 03/26/2011 0373 EST PSYCHIATRIC CONSULT SERVICE DATE: 03/26/2011 IDENTIFYING DATA: A 60-year-old white male living in [place], [place] over the last year, moving from [place] to [place] to be near a daughter and grandchildren. He is since last August. He had worked in [employer] until last May. HISTORY OF PRESENT ILLNESS: The patient is admitted 03/22/11 in transition from the hospital in [facility] after an overdose of Ambien, 27 tablets. Please see admission note by Dr Jenae Metz. The patient, on interview, reviews that he has had some depression all his life, isolating, lackingassertion. After his in August, he acknowledged becoming more depressed. He had difficulty functioning and resigned his job last May. He then was hospitalized in June in [place] into a mental health unit. He was placed on Cymbalta and Remeron. He decided to move to [place] to be with hisdaughter. His daughter, however, moved from [place] to [facility] in the fall for a child togo to school and that was another loss. He describes that he was isolating, having a hard time functioning. He was next hospitalized in [facility] [place] [facility] in February. He was there for approximately2 weeks, being placed on nortriptyline and perphenazine. After 2 weeks, he was discharged against medical advice, though apparently with daughter's intent to have him involved in a different treatment setting, perhaps in [facility] or [facility]. He describes, while staying at a [...] treated with depression. DEVELOPMENTAL HISTORY: Raised in [place], having an older brother who several years [...] fashion. He is oriented to 03/26, April NodePing. IMPRESSION Kirkland I: Major depressive disorder, chronic, recurrent, possibly with somatic delusions. Kirkland II: Deferred. Kirkland III: Status post zolpidem overdose, history of cardiac stents, diabetes mellitus. Kirkland IV: Stressors moderate, related isolation, loss of . Kirkland V: 35. This patient describes long history [...] right unilateral mode. TIME SPENT: Forty-five minutes [id number], all of which was spent reviewing the above history anddeveloping the treatment plan. Juwan Walter MD 10 31 AM / Juwan Walter MD cs Confirmation: [id number] Dictation ID: [id number] documented in this encounter OR Notes * Anesthesia Preprocedure Evaluation - Cook Helper Vegetable, Scan - 05/13/2011 0839 EST * Anesthesia Procedure Notes - Cook Helper Vegetable, Scan - 05/02/2011 0934 EST * Anesthesia Procedure Notes - Cook Helper Vegetable, Scan - 04/28/2011 0931 EST * Anesthesia Procedure Notes - Cook Helper Vegetable, Scan - 04/25/2011 0920 EST * Anesthesia Procedure Notes - Cook Helper Vegetable, Scan - 04/23/2011 0909 EST * Anesthesia Procedure Notes - Cook Helper Vegetable, Scan - 04/18/2011 0850 EST * Anesthesia Procedure Notes - Cook Helper Vegetable, Scan - 04/16/2011 0958 EST * Anesthesia Procedure Notes - Cook Helper Vegetable, Scan - 04/09/2011 0951 EST * Anesthesia Procedure Notes - Cook Helper Vegetable, Scan - 04/08/2011 0943 EST * Anesthesia Procedure Notes - Cook Helper Vegetable, Scan - 04/07/2011 1043 EST * Anesthesia Procedure Notes - Cook Helper Vegetable, Scan - 04/04/2011 0938 EST * Anesthesia Procedure Notes - Cook Helper Vegetable, Scan - 04/02/2011 0915 EST * Anesthesia Procedure Notes - Cook Helper Vegetable, Scan - 03/27/2011 1013 EST documented in this encounter Miscellaneous Notes * Scanned Note-Null - Cook Helper Vegetable, Scan - 05/13/2011 0839 EST * Scanned Note-Null - Cook Helper Vegetable, Scan - 05/13/2011 0839 EST * Scanned Note-Null - Cook Helper Vegetable, Scan - 05/13/2011 0839 EST * Scanned Note-Null - Cook Helper Vegetable, Scan - 05/13/2011 0839 EST * Scanned Note-Null - Cook Helper Vegetable, Scan - 05/13/2011 0839 EST * Plan of Care - Cook Helper Vegetable, Scan - 05/13/2011 0839 EST * Scanned Note-Null - Cook Helper Vegetable, Scan - 05/09/2011 1337 EST * Plan of Care - Ivett Michel RN - 05/05/2011 0545 EST Problem: ALTERATION IN SLEEP Goal: Reports Nightly Sleep, Duration And Quality Outcome: Not Met This Shift Active Multi-Disciplinary problems: ALTERED THOUGHT PROCESSES [666511] (03/22/11) ALTERATION IN SLEEP [605226] (03/23/11) KNOWLEDGE DEFICIT [206123] (04/07/11) NUTRITION [207677] (04/07/11) RISK FOR INFECTION [568255] (04/07/11) GLYCEMIA IMBALANCE [498168] (04/07/11) ANXIETY [192866] (04/09/11) Ineffective Coping [980408] (04/09/11) SELF CARE DEFICIT [295012] (04/09/11) ALTERATION IN MOOD [485221] (04/09/11) Discharge Planning [530593] (04/27/11) Data: See observation record. Action: Continued on every 30 minute observations through the night. Response: Requested/received ambien 10 mg po at 2356. Remained awake watching TV and snacking untilretiring to bed and asleep at 0152. Appeared to sleep comfortably x 4 hours. vIett Michel RN 05/05/2011 5:43 * Plan of [...] behavior Active Multi-Disciplinary problems: ALTERED THOUGHT PROCESSES [240155] (03/22/11) ALTERATION IN SLEEP [221338] (03/23/11) KNOWLEDGE DEFICIT [699508] (04/07/11) NUTRITION [466198] (04/07/11) RISK FOR INFECTION [962240] (04/07/11) GLYCEMIA IMBALANCE [537235] (04/07/11) ANXIETY [520470] (04/09/11) Ineffective Coping [247304] (04/09/11) SELF CARE DEFICIT [044202] (04/09/11) ALTERATION IN MOOD [445019] (04/09/11) Discharge Planning [279210] (04/27/11) Data: The patient denies SI and [...] and hibernating. Denies SI and pain. Alice Faitma RN 05/04/2011 14:12 * Plan of Care - Christina Torres - 05/03/2011 5782 EST Problem: ALTERED THOUGHT PROCESSES Goal: Desires [...] reasons Active Multi-Disciplinary problems: ALTERED THOUGHT PROCESSES [390807] (03/22/11) ALTERATION IN SLEEP [269897] (03/23/11) KNOWLEDGE DEFICIT [820632] (04/07/11) NUTRITION [246040] (04/07/11) RISK FOR INFECTION [455116] (04/07/11) GLYCEMIA IMBALANCE [467042] (04/07/11) ANXIETY [325656] (04/09/11) Ineffective Coping [985049] (04/09/11) SELF CARE DEFICIT [721011] (04/09/11) ALTERATION IN MOOD [727234] (04/09/11) Discharge Planning [987047] (04/27/11) Data: pt watched tv in the [...] EST Active Multi-Disciplinary problems: ALTERED THOUGHT PROCESSES [849227] (03/22/11) ALTERATION IN SLEEP [952726] (03/23/11) KNOWLEDGE DEFICIT [295251] (04/07/11) NUTRITION [173770] (04/07/11) RISK FOR INFECTION [158167] (04/07/11) GLYCEMIA IMBALANCE [909104] (04/07/11) ANXIETY [006780] (04/09/11) Ineffective Coping [082292] (04/09/11) SELF CARE DEFICIT [383765] (04/09/11) ALTERATION IN MOOD [676537] (04/09/11) Discharge Planning [742670] (04/27/11) Data: Pt slept in much of [...] Response: Looking ready for the move to [facility] near his daughter.. Dahlia Hernández RN 05/02/2011 22:49 * Plan of Care - Tamika Cordero 05/02/2011 1521 EST Problem: Discharge Planning Goal: Patient/Family Participate In Treatment And DC Plans Outcome: Ongoing Active Multi-Disciplinary problems: ALTERED THOUGHT PROCESSES [392086] (03/22/11) ALTERATION IN SLEEP [980304] (03/23/11) KNOWLEDGE DEFICIT [480575] (04/07/11) NUTRITION [343998] (04/07/11) RISK FOR INFECTION [172574] (04/07/11) GLYCEMIA IMBALANCE [452201] (04/07/11) ANXIETY [131142] (04/09/11) Ineffective Coping [450184] (04/09/11) SELF CARE DEFICIT [860924] (04/09/11) ALTERATION IN MOOD [270133] (04/09/11) Discharge Planning [157472] (04/27/11) Data: Was npo for ECT this [...] Unilateral Dosing Protocol: 0.3 ms Pulse-width Protocol ([facility]) Pulse width: 0.3 msec Frequency: 50 Hz [...] reasons Active Multi-Disciplinary problems: ALTERED THOUGHT PROCESSES [544999] (03/22/11) ALTERATION IN SLEEP [711013] (03/23/11) KNOWLEDGE DEFICIT [500033] (04/07/11) NUTRITION [004434] (04/07/11) RISK FOR INFECTION [368143] (04/07/11) GLYCEMIA IMBALANCE [829732] (04/07/11) ANXIETY [764859] (04/09/11) Ineffective Coping [860545] (04/09/11) SELF CARE DEFICIT [914968] (04/09/11) ALTERATION IN MOOD [830677] (04/09/11) Discharge Planning [821992] (04/27/11) Data: pt awake at beginning of overnight houseperson watching tv. Received ambien at midnight. Pt npo since midnight. He was in bed and asleep by 0130 and appeared to sleep for the rest of the night. Action: monitored on routine observations Response: pt sleeping, no signs of distress. Cyndie Redman RN 05/02/2011 6:58 * Plan of Care - Dahlia Hernández - 05/01/2011 2132 EST Active Multi-Disciplinary problems: ALTERED THOUGHT PROCESSES [862270] (03/22/11) ALTERATION IN SLEEP [157396] (03/23/11) KNOWLEDGE DEFICIT [779695] (04/07/11) NUTRITION [315106] (04/07/11) RISK FOR INFECTION [659730] (04/07/11) GLYCEMIA IMBALANCE [106011] (04/07/11) ANXIETY [072640] (04/09/11) Ineffective Coping [095975] (04/09/11) SELF CARE DEFICIT [045507] (04/09/11) ALTERATION IN MOOD [881216] (04/09/11) Discharge Planning [332374] (04/27/11) Data: Pt prepared for ECT, npo [...] reasons Active Multi-Disciplinary problems: ALTERED THOUGHT PROCESSES [072768] (03/22/11) ALTERATION IN SLEEP [006077] (03/23/11) KNOWLEDGE DEFICIT [780997] (04/07/11) NUTRITION [317279] (04/07/11) RISK FOR INFECTION [226551] (04/07/11) GLYCEMIA IMBALANCE [960871] (04/07/11) ANXIETY [648644] (04/09/11) Ineffective Coping [515191] (04/09/11) SELF CARE DEFICIT [021659] (04/09/11) ALTERATION IN MOOD [368958] (04/09/11) Discharge Planning [593986] (04/27/11) Data: Pt in TV room at [...] Care - Zamzam Sher RN - 04/30/2011 5622 EST Problem: ALTERATION IN MOOD Goal: Desires Improved Mood Outcome: Ongoing Active Multi-Disciplinary problems: ALTERED THOUGHT PROCESSES [214796] (03/22/11) ALTERATION IN SLEEP [990472] (03/23/11) KNOWLEDGE DEFICIT [969576] (04/07/11) NUTRITION [998434] (04/07/11) RISK FOR INFECTION [827218] (04/07/11) GLYCEMIA IMBALANCE [275258] (04/07/11) ANXIETY [941807] (04/09/11) Ineffective Coping [014426] (04/09/11) SELF CARE DEFICIT [870827] (04/09/11) ALTERATION IN MOOD [509934] (04/09/11) Data: Patient napped at start of [...] Ongoing Active Multi-Disciplinary problems: ALTERED THOUGHT PROCESSES [203544] (03/22/11) ALTERATION IN SLEEP [861597] (03/23/11) KNOWLEDGE DEFICIT [539900] (04/07/11) NUTRITION [778674] (04/07/11) RISK FOR INFECTION [792573] (04/07/11) GLYCEMIA IMBALANCE [337899] (04/07/11) ANXIETY [447939] (04/09/11) Ineffective Coping [781812] (04/09/11) SELF CARE DEFICIT [502563] (04/09/11) ALTERATION IN MOOD [991973] (04/09/11) Discharge Planning [942891] (04/27/11) Data: Was npo for ECT this morning. Had a maria isabel in place. Was escorted to [facility] by the T and returned to the [...] Unilateral Dosing Protocol: 0.3 ms Pulse-width Protocol ([facility]) Pulse width: 0.3 msec Frequency: [...] reasons Active Multi-Disciplinary problems: ALTERED THOUGHT PROCESSES [900095] (03/22/11) ALTERATION IN SLEEP [453971] (03/23/11) KNOWLEDGE DEFICIT [952463] (04/07/11) NUTRITION [020607] (04/07/11) RISK FOR INFECTION [562611] (04/07/11) GLYCEMIA IMBALANCE [566455] (04/07/11) ANXIETY [906101] (04/09/11) Ineffective Coping [126171] (04/09/11) SELF CARE DEFICIT [633788] (04/09/11) ALTERATION IN MOOD [741992] (04/09/11) Discharge Planning [335388] (04/27/11) Data: Pt in TV room @ [...] Care - Zamzam Sher RN - 04/29/2011 6729 EST Problem: ALTERATION IN MOOD Goal: Desires Improved Mood Outcome: Ongoing Active Multi-Disciplinary problems: ALTERED THOUGHT PROCESSES [753950] (03/22/11) ALTERATION IN SLEEP [338562] (03/23/11) KNOWLEDGE DEFICIT [865906] (04/07/11) NUTRITION [327547] (04/07/11) RISK FOR INFECTION [595669] (04/07/11) GLYCEMIA IMBALANCE [986350] (04/07/11) ANXIETY [624738] (04/09/11) Ineffective Coping [313560] (04/09/11) SELF CARE DEFICIT [048915] (04/09/11) ALTERATION IN MOOD [482500] (04/09/11) Data: Patient awake and out of [...] Care - Meghan Melchor RN - 04/29/2011 1084 EST Problem: NUTRITION Patient unable to self-regulate blood glucose level Goal: Blood Glucose Control Maintain plasma glucose levels within expected range. Outcome: Met This Shift Active Multi-Disciplinary problems: ALTERED THOUGHT PROCESSES [682244] (03/22/11) ALTERATION IN SLEEP [030614] (03/23/11) KNOWLEDGE DEFICIT [290830] (04/07/11) NUTRITION [379308] (04/07/11) RISK FOR INFECTION [971865] (04/07/11) GLYCEMIA IMBALANCE [522798] (04/07/11) ANXIETY [062837] (04/09/11) Ineffective Coping [711478] (04/09/11) SELF CARE DEFICIT [536838] (04/09/11) ALTERATION IN MOOD [047468] (04/09/11) Discharge Planning [701287] (04/27/11) Data: Denies SI/HI. Denies pain. Pleasant, [...] breakfast 101; fs before lunch 89. Response: Kendrick sleepy after breakfast; took a short nap [...] reasons Active Multi-Disciplinary problems: ALTERED THOUGHT PROCESSES [268495] (03/22/11) ALTERATION IN SLEEP [181483] (03/23/11) KNOWLEDGE DEFICIT [537983] (04/07/11) NUTRITION [302894] (04/07/11) RISK FOR INFECTION [655067] (04/07/11) GLYCEMIA IMBALANCE [003591] (04/07/11) ANXIETY [301433] (04/09/11) Ineffective Coping [427295] (04/09/11) SELF CARE DEFICIT [354281] (04/09/11) ALTERATION IN MOOD [073945] (04/09/11) Discharge Planning [783771] (04/27/11) Data: pt awake at beginning of overnight houseperson watching tv in common area. He requested [...] EPPS RN 04/28/2011 21:23 * Plan of [facility], Phuong Bautista RN - 04/28/2011 8476 EST Problem: ALTERATION IN MOOD Goal: Desires Improved Mood Intervention: Staff observations of behavior Active Multi-Disciplinary problems: ALTERED THOUGHT PROCESSES [649612] (03/22/11) ALTERATION IN SLEEP [841580] (03/23/11) KNOWLEDGE DEFICIT [467367] (04/07/11) NUTRITION [264133] (04/07/11) RISK FOR INFECTION [415039] (04/07/11) GLYCEMIA IMBALANCE [628031] (04/07/11) ANXIETY [190540] (04/09/11) Ineffective Coping [350270] (04/09/11) SELF CARE DEFICIT [034465] (04/09/11) ALTERATION IN MOOD [110352] (04/09/11) Discharge Planning [108351] (04/27/11) Data: polite and coop. Affect mildly [...] Unilateral Dosing Protocol: 0.3 ms Pulse-width Protocol ([facility]) Pulse width: 0.3 msec Frequency: 50 Hz [...] 04/28/2011 9:25 EST * Scanned Note-Null - Cook Helper Vegetable, Scan - 04/28/2011 0825 EST * Plan of Care - Teresita Colorado RN - 04/28/2011 0622 EST Problem: ALTERATION IN SLEEP Goal: Informs Staff If Unable To Sleep Outcome: Not Met This Shift Active Multi-Disciplinary problems: ALTERED THOUGHT PROCESSES [219645] (03/22/11) ALTERATION IN SLEEP [632835] (03/23/11) KNOWLEDGE DEFICIT [070180] (04/07/11) NUTRITION [558165] (04/07/11) RISK FOR INFECTION [107553] (04/07/11) GLYCEMIA IMBALANCE [839739] (04/07/11) ANXIETY [610071] (04/09/11) Ineffective Coping [052216] (04/09/11) SELF CARE DEFICIT [759933] (04/09/11) ALTERATION IN MOOD [183246] (04/09/11) Discharge Planning [049796] (04/27/11) Data: Pt awake until 0230, then asleep except briefly at 0330. No needs/concerns voiced. Action: Routine checks for safety. NPO for ECT in a.m. S/L order in computer. Response: Pt remained safe on the unit; continue to monitor. Terseita Colorado RN 04/28/2011 6:20 * Plan of Care - Zamzam Sher RN - 04/27/2011 2232 EST Problem: ALTERATION IN MOOD Goal: Desires Improved Mood Outcome: Ongoing Active Multi-Disciplinary problems: ALTERED THOUGHT PROCESSES [908008] (03/22/11) ALTERATION IN SLEEP [179673] (03/23/11) KNOWLEDGE DEFICIT [241207] (04/07/11) NUTRITION [047922] (04/07/11) RISK FOR INFECTION [916577] (04/07/11) GLYCEMIA IMBALANCE [436605] (04/07/11) ANXIETY [951003] (04/09/11) Ineffective Coping [132101] (04/09/11) SELF CARE DEFICIT [796941] (04/09/11) ALTERATION IN MOOD [749672] (04/09/11) Data: Patient napped at start of [...] Ongoing Active Multi-Disciplinary problems: ALTERED THOUGHT PROCESSES [505546] (03/22/11) ALTERATION IN SLEEP [253747] (03/23/11) KNOWLEDGE DEFICIT [703260] (04/07/11) NUTRITION [190873] (04/07/11) RISK FOR INFECTION [857546] (04/07/11) GLYCEMIA IMBALANCE [506600] (04/07/11) ANXIETY [135472] (04/09/11) Ineffective Coping [809182] (04/09/11) SELF CARE DEFICIT [922393] (04/09/11) ALTERATION IN MOOD [272304] (04/09/11) Discharge Planning [769371] (04/27/11) Data: Will be NPO for ECT [...] looking for a new apartment in the [facility] area. Tamika Cordero, NAHUN 04/27/2011 11:08 1515 Did admit to feeling anxious about discharge and at the same time was looking forward to leaving. Was able to discuss the reasons for wanting to move near his family in [facility], especiallyto get away from the isolation. * [...] Ongoing Active Multi-Disciplinary problems: ALTERED THOUGHT PROCESSES [496935] (03/22/11) ALTERATION IN SLEEP [009769] (03/23/11) KNOWLEDGE DEFICIT [943177] (04/07/11) NUTRITION [058575] (04/07/11) RISK FOR INFECTION [714584] (04/07/11) GLYCEMIA IMBALANCE [933800] (04/07/11) ANXIETY [286587] (04/09/11) Ineffective Coping [466616] (04/09/11) SELF CARE DEFICIT [530248] (04/09/11) ALTERATION IN MOOD [310988] (04/09/11) Data: Denies SI/HI. Later this evening [...] Management Active Multi-Disciplinary problems: ALTERED THOUGHT PROCESSES [719372] (03/22/11) ALTERATION IN SLEEP [600991] (03/23/11) KNOWLEDGE DEFICIT [230697] (04/07/11) NUTRITION [442299] (04/07/11) RISK FOR INFECTION [028280] (04/07/11) GLYCEMIA IMBALANCE [053428] (04/07/11) ANXIETY [473674] (04/09/11) Ineffective Coping [831245] (04/09/11) SELF CARE DEFICIT [237039] (04/09/11) ALTERATION IN MOOD [183714] (04/09/11) Data: Finger stick was 118 at [...] Quality Active Multi-Disciplinary problems: ALTERED THOUGHT PROCESSES [500566] (03/22/11) ALTERATION IN SLEEP [748441] (03/23/11) KNOWLEDGE DEFICIT [596750] (04/07/11) NUTRITION [673049] (04/07/11) RISK FOR INFECTION [719411] (04/07/11) GLYCEMIA IMBALANCE [989092] (04/07/11) ANXIETY [951474] (04/09/11) Ineffective Coping [504994] (04/09/11) SELF CARE DEFICIT [269930] (04/09/11) ALTERATION IN MOOD [562091] (04/09/11) Data: Pt watching TV when rec'd [...] Ongoing Active Multi-Disciplinary problems: ALTERED THOUGHT PROCESSES [812632] (03/22/11) ALTERATION IN SLEEP [961123] (03/23/11) KNOWLEDGE DEFICIT [086939] (04/07/11) NUTRITION [220349] (04/07/11) RISK FOR INFECTION [244275] (04/07/11) GLYCEMIA IMBALANCE [897917] (04/07/11) ANXIETY [633594] (04/09/11) Ineffective Coping [719441] (04/09/11) SELF CARE DEFICIT [140258] (04/09/11) ALTERATION IN MOOD [431702] (04/09/11) Data: Patient attended afternoon spiritual care group. Spent time in milieu reading. Ate dinner in the TV room. Appetite is fair. Reports continued mild stomach upset and decreased appetite. Enjoyed pass earlier today with his daughter and granddaughter. FS at 1700 was 240 (after eating [employer] [place] on pass) and at HS was 188. [...] Level Active Multi-Disciplinary problems: ALTERED THOUGHT PROCESSES [027313] (03/22/11) ALTERATION IN SLEEP [530918] (03/23/11) KNOWLEDGE DEFICIT [001719] (04/07/11) NUTRITION [334978] (04/07/11) RISK FOR INFECTION [134597] (04/07/11) GLYCEMIA IMBALANCE [584934] (04/07/11) ANXIETY [829214] (04/09/11) Ineffective Coping [556633] (04/09/11) SELF CARE DEFICIT [673083] (04/09/11) ALTERATION IN MOOD [531608] (04/09/11) Data: The patient has been calm [...] Unilateral Dosing Protocol: 0.3 ms Pulse-width Protocol ([facility]) Pulse width: 0.3 msec Frequency: 50 Hz [...] reasons Active Multi-Disciplinary problems: ALTERED THOUGHT PROCESSES [960791] (03/22/11) ALTERATION IN SLEEP [252083] (03/23/11) KNOWLEDGE DEFICIT [171170] (04/07/11) NUTRITION [500492] (04/07/11) RISK FOR INFECTION [345583] (04/07/11) GLYCEMIA IMBALANCE [677598] (04/07/11) ANXIETY [548685] (04/09/11) Ineffective Coping [815521] (04/09/11) SELF CARE DEFICIT [238486] (04/09/11) ALTERATION IN MOOD [681846] (04/09/11) Data: Pt awake, watching TV at [...] would talk to his day nurse, this typewriter assembly and parts inspector advised him to speak with his doctor [...] Care - Phoebe Epps RN - 04/24/2011 4795 EST Problem: ALTERATION IN MOOD Goal: Desires [...] EPPS RN 04/24/2011 21:04 * Plan of [facility] - Alice Fatima RN - 04/24/2011 1138 EST Problem: ALTERATION IN MOOD Goal: Desires Improved Energy Level Active Multi-Disciplinary problems: ALTERED THOUGHT PROCESSES [068132] (03/22/11) ALTERATION IN SLEEP [687348] (03/23/11) KNOWLEDGE DEFICIT [740519] (04/07/11) NUTRITION [638128] (04/07/11) RISK FOR INFECTION [602677] (04/07/11) GLYCEMIA IMBALANCE [614580] (04/07/11) ANXIETY [375168] (04/09/11) Ineffective Coping [814635] (04/09/11) SELF CARE DEFICIT [927120] (04/09/11) ALTERATION IN MOOD [990042] (04/09/11) Data: The patient was up and [...] reasons Active Multi-Disciplinary problems: ALTERED THOUGHT PROCESSES [750713] (03/22/11) ALTERATION IN SLEEP [484236] (03/23/11) KNOWLEDGE DEFICIT [102700] (04/07/11) NUTRITION [595249] (04/07/11) RISK FOR INFECTION [532830] (04/07/11) GLYCEMIA IMBALANCE [525059] (04/07/11) ANXIETY [631695] (04/09/11) Ineffective Coping [998276] (04/09/11) SELF CARE DEFICIT [156157] (04/09/11) ALTERATION IN MOOD [786576] (04/09/11) Data: Pt out in milieu, watching [...] - Lorenzo, Fadumo Mondragon RN - 04/23/2011 0289 EST Active Multi-Disciplinary problems: ALTERED THOUGHT PROCESSES [942073] (03/22/11) ALTERATION IN SLEEP [238738] (03/23/11) KNOWLEDGE DEFICIT [226221] (04/07/11) NUTRITION [855675] (04/07/11) RISK FOR INFECTION [100411] (04/07/11) GLYCEMIA IMBALANCE [820136] (04/07/11) ANXIETY [845644] (04/09/11) Ineffective Coping [803273] (04/09/11) SELF CARE DEFICIT [537164] (04/09/11) ALTERATION IN MOOD [623499] (04/09/11) Data: Napping at start of shift. [...] care Active Multi-Disciplinary problems: ALTERED THOUGHT PROCESSES [645722] (03/22/11) ALTERATION IN SLEEP [181107] (03/23/11) KNOWLEDGE DEFICIT [465060] (04/07/11) NUTRITION [320962] (04/07/11) RISK FOR INFECTION [402653] (04/07/11) GLYCEMIA IMBALANCE [597244] (04/07/11) ANXIETY [621809] (04/09/11) Ineffective Coping [615274] (04/09/11) SELF CARE DEFICIT [356682] (04/09/11) ALTERATION IN MOOD [308548] (04/09/11) Data: Was npo for ECT this morning and had his maria isabel in place. Was escorted to [facility] for his treatment by [...] Unilateral Dosing Protocol: 0.3 ms Pulse-width Protocol ([facility]) Pulse width: 0.3 msec Frequency: 50 Hz [...] Ongoing Active Multi-Disciplinary problems: ALTERED THOUGHT PROCESSES [521854] (03/22/11) ALTERATION IN SLEEP [901002] (03/23/11) KNOWLEDGE DEFICIT [597079] (04/07/11) NUTRITION [396117] (04/07/11) RISK FOR INFECTION [593962] (04/07/11) GLYCEMIA IMBALANCE [890841] (04/07/11) ANXIETY [771169] (04/09/11) Ineffective Coping [091163] (04/09/11) SELF CARE DEFICIT [039908] (04/09/11) ALTERATION IN MOOD [927601] (04/09/11) Data: Patient was awake at onset [...] Ongoing Active Multi-Disciplinary problems: ALTERED THOUGHT PROCESSES [630599] (03/22/11) ALTERATION IN SLEEP [742928] (03/23/11) KNOWLEDGE DEFICIT [402790] (04/07/11) NUTRITION [424816] (04/07/11) RISK FOR INFECTION [858251] (04/07/11) GLYCEMIA IMBALANCE [752580] (04/07/11) ANXIETY [328607] (04/09/11) Ineffective Coping [266046] (04/09/11) SELF CARE DEFICIT [314311] (04/09/11) ALTERATION IN MOOD [146066] (04/09/11) Data: Patient napped at the start [...] Ongoing Active Multi-Disciplinary problems: ALTERED THOUGHT PROCESSES [866976] (03/22/11) ALTERATION IN SLEEP [159324] (03/23/11) KNOWLEDGE DEFICIT [090853] (04/07/11) NUTRITION [284473] (04/07/11) RISK FOR INFECTION [602760] (04/07/11) GLYCEMIA IMBALANCE [076829] (04/07/11) ANXIETY [966214] (04/09/11) Ineffective Coping [439127] (04/09/11) SELF CARE DEFICIT [917827] (04/09/11) ALTERATION IN MOOD [092389] (04/09/11) Data: Patient was awake at onset [...] mechanisms Active Multi-Disciplinary problems: ALTERED THOUGHT PROCESSES [674359] (03/22/11) ALTERATION IN SLEEP [208440] (03/23/11) KNOWLEDGE DEFICIT [101062] (04/07/11) NUTRITION [295942] (04/07/11) RISK FOR INFECTION [749447] (04/07/11) GLYCEMIA IMBALANCE [228591] (04/07/11) ANXIETY [311889] (04/09/11) Ineffective Coping [068774] (04/09/11) SELF CARE DEFICIT [925186] (04/09/11) ALTERATION IN MOOD [553970] (04/09/11) Data: Ate breakfast in the dining [...] EST Active Multi-Disciplinary problems: ALTERED THOUGHT PROCESSES [643358] (03/22/11) ALTERATION IN SLEEP [846933] (03/23/11) KNOWLEDGE DEFICIT [037072] (04/07/11) NUTRITION [338661] (04/07/11) RISK FOR INFECTION [199805] (04/07/11) GLYCEMIA IMBALANCE [672241] (04/07/11) ANXIETY [458179] (04/09/11) Ineffective Coping [766708] (04/09/11) SELF CARE DEFICIT [845270] (04/09/11) ALTERATION IN MOOD [226569] (04/09/11) Data: Pt up in tv room [...] Ongoing Active Multi-Disciplinary problems: ALTERED THOUGHT PROCESSES [505536] (03/22/11) ALTERATION IN SLEEP [491900] (03/23/11) KNOWLEDGE DEFICIT [460155] (04/07/11) NUTRITION [526195] (04/07/11) RISK FOR INFECTION [342327] (04/07/11) GLYCEMIA IMBALANCE [826971] (04/07/11) ANXIETY [565705] (04/09/11) Ineffective Coping [365535] (04/09/11) SELF CARE DEFICIT [602434] (04/09/11) ALTERATION IN MOOD [002388] (04/09/11) Data: Pt ate breakfast in DR. [...] Plan of Ladan Crenshaw LPN - 04/20/2011 0670 EST Active Multi-Disciplinary problems: ALTERED THOUGHT PROCESSES [958053] (03/22/11) ALTERATION IN SLEEP [859525] (03/23/11) KNOWLEDGE DEFICIT [376279] (04/07/11) NUTRITION [774178] (04/07/11) RISK FOR INFECTION [866021] (04/07/11) GLYCEMIA IMBALANCE [428623] (04/07/11) ANXIETY [680370] (04/09/11) Ineffective Coping [804954] (04/09/11) SELF CARE DEFICIT [808091] (04/09/11) ALTERATION IN MOOD [301856] (04/09/11) Data: Pt up in tv room [...] Care - Zamzam Sher RN - 04/19/2011 9276 EST Problem: ALTERATION IN MOOD Goal: Desires Improved Mood Outcome: Ongoing Active Multi-Disciplinary problems: ALTERED THOUGHT PROCESSES [273018] (03/22/11) ALTERATION IN SLEEP [486241] (03/23/11) KNOWLEDGE DEFICIT [722028] (04/07/11) NUTRITION [175683] (04/07/11) RISK FOR INFECTION [089029] (04/07/11) GLYCEMIA IMBALANCE [403509] (04/07/11) ANXIETY [867573] (04/09/11) Ineffective Coping [504428] (04/09/11) SELF CARE DEFICIT [906374] (04/09/11) ALTERATION IN MOOD [956165] (04/09/11) Data: Patient napped at the start [...] environment Active Multi-Disciplinary problems: ALTERED THOUGHT PROCESSES [395013] (03/22/11) ALTERATION IN SLEEP [464712] (03/23/11) KNOWLEDGE DEFICIT [214350] (04/07/11) NUTRITION [344752] (04/07/11) RISK FOR INFECTION [076661] (04/07/11) GLYCEMIA IMBALANCE [829403] (04/07/11) ANXIETY [789888] (04/09/11) Ineffective Coping [198584] (04/09/11) SELF CARE DEFICIT [989634] (04/09/11) ALTERATION IN MOOD [951879] (04/09/11) Data: The patient has been out [...] reasons Active Multi-Disciplinary problems: ALTERED THOUGHT PROCESSES [832481] (03/22/11) ALTERATION IN SLEEP [362770] (03/23/11) KNOWLEDGE DEFICIT [260849] (04/07/11) NUTRITION [710497] (04/07/11) RISK FOR INFECTION [026833] (04/07/11) GLYCEMIA IMBALANCE [476973] (04/07/11) ANXIETY [413258] (04/09/11) Ineffective Coping [236073] (04/09/11) SELF CARE DEFICIT [547187] (04/09/11) ALTERATION IN MOOD [318383] (04/09/11) Data: pt awake in activity room at beginning of the overnight houseperson. He requested and received repeat dose of [...] 04/18/2011 21:41 * Plan of [facility] - Tamika Cordero - 04/18/2011 1522 EST Problem: NUTRITION Patient unable to self-regulate blood glucose level Goal: Blood Glucose Control Maintain plasma glucose levels within expected range. Intervention: Hypoglycemia Management Active Multi-Disciplinary problems: ALTERED THOUGHT PROCESSES [580735] (03/22/11) ALTERATION IN SLEEP [109342] (03/23/11) KNOWLEDGE DEFICIT [144710] (04/07/11) NUTRITION [626404] (04/07/11) RISK FOR INFECTION [051961] (04/07/11) GLYCEMIA IMBALANCE [890886] (04/07/11) ANXIETY [340180] (04/09/11) Ineffective Coping [748954] (04/09/11) SELF CARE DEFICIT [172120] (04/09/11) ALTERATION IN MOOD [969530] (04/09/11) Data: Was npo for ECT this morning. Maria Isabel was not inserted prior to going for treatment, Because the IVRN was not able to insert it. Was ecorted to PPR by DIGITAL SPECIALIST. Was returned to the floor by the DIGITAL SPECIALIST via wheelchair. Denied any problems with side [...] Unilateral Dosing Protocol: 0.3 ms Pulse-width Protocol ([facility]) Pulse width: 0.3 msec Frequency: 50 Hz [...] reasons Active Multi-Disciplinary problems: ALTERED THOUGHT PROCESSES [802032] (03/22/11) ALTERATION IN SLEEP [393203] (03/23/11) KNOWLEDGE DEFICIT [321593] (04/07/11) NUTRITION [282122] (04/07/11) RISK FOR INFECTION [400556] (04/07/11) GLYCEMIA IMBALANCE [773754] (04/07/11) ANXIETY [552385] (04/09/11) Ineffective Coping [981769] (04/09/11) SELF CARE DEFICIT [843160] (04/09/11) ALTERATION IN MOOD [543443] (04/09/11) Data: pt awake at 2330 watching [...] EST Active Multi-Disciplinary problems: ALTERED THOUGHT PROCESSES [757819] (03/22/11) ALTERATION IN SLEEP [877582] (03/23/11) KNOWLEDGE DEFICIT [127092] (04/07/11) NUTRITION [680905] (04/07/11) RISK FOR INFECTION [331598] (04/07/11) GLYCEMIA IMBALANCE [660231] (04/07/11) ANXIETY [498072] (04/09/11) Ineffective Coping [308783] (04/09/11) SELF CARE DEFICIT [976634] (04/09/11) ALTERATION IN MOOD [276841] (04/09/11) Data: Pt socialized with peers all [...] management Active Multi-Disciplinary problems: ALTERED THOUGHT PROCESSES [430045] (03/22/11) ALTERATION IN SLEEP [884500] (03/23/11) KNOWLEDGE DEFICIT [020841] (04/07/11) NUTRITION [442022] (04/07/11) RISK FOR INFECTION [037021] (04/07/11) GLYCEMIA IMBALANCE [444432] (04/07/11) ANXIETY [522367] (04/09/11) Ineffective Coping [919333] (04/09/11) SELF CARE DEFICIT [296827] (04/09/11) ALTERATION IN MOOD [504078] (04/09/11) Data: Ate breakfast in the dining [...] EST Active Multi-Disciplinary problems: ALTERED THOUGHT PROCESSES [196125] (03/22/11) ALTERATION IN SLEEP [944380] (03/23/11) KNOWLEDGE DEFICIT [549614] (04/07/11) NUTRITION [349142] (04/07/11) RISK FOR INFECTION [662210] (04/07/11) GLYCEMIA IMBALANCE [114272] (04/07/11) ANXIETY [293511] (04/09/11) Ineffective Coping [919101] (04/09/11) SELF CARE DEFICIT [416480] (04/09/11) ALTERATION IN MOOD [860595] (04/09/11) Data: Pt req and received Ambien [...] at 04/17/2011 6:51 EST * Plan of [facility] - [place], Phuong Bautista RN - 04/16/2011 4663 EST Problem: ALTERATION IN MOOD Goal: Desires Improved Mood Intervention: Staff observations of behavior Active Multi-Disciplinary problems: ALTERED THOUGHT PROCESSES [155581] (03/22/11) ALTERATION IN SLEEP [814816] (03/23/11) KNOWLEDGE DEFICIT [929419] (04/07/11) NUTRITION [248447] (04/07/11) RISK FOR INFECTION [388003] (04/07/11) GLYCEMIA IMBALANCE [216950] (04/07/11) ANXIETY [265113] (04/09/11) Ineffective Coping [600397] (04/09/11) SELF CARE DEFICIT [192272] (04/09/11) ALTERATION IN MOOD [959631] (04/09/11) Data: pt seemed to be in [...] Ongoing Active Multi-Disciplinary problems: ALTERED THOUGHT PROCESSES [896854] (03/22/11) ALTERATION IN SLEEP [813784] (03/23/11) KNOWLEDGE DEFICIT [265810] (04/07/11) NUTRITION [813178] (04/07/11) RISK FOR INFECTION [247158] (04/07/11) GLYCEMIA IMBALANCE [879447] (04/07/11) ANXIETY [494661] (04/09/11) Ineffective Coping [658507] (04/09/11) SELF CARE DEFICIT [703082] (04/09/11) ALTERATION IN MOOD [700252] (04/09/11) Data: Pt to ECT this am [...] Dosing Protocol: 0.3 ms Pulse-width Protocol ([facility]) Pulse width: 0.3 msec Frequency: 50 Hz [...] Anesthesia Pre-Eval - Mer Espinosa - 04/16/2011 0901 EST Anesthesia ECT Pre-Evaluation Name: SHAHNAZ SANTIAGO [...] Ongoing Active Multi-Disciplinary problems: ALTERED THOUGHT PROCESSES [856700] (03/22/11) ALTERATION IN SLEEP [807668] (03/23/11) KNOWLEDGE DEFICIT [404274] (04/07/11) NUTRITION [028767] (04/07/11) RISK FOR INFECTION [189687] (04/07/11) GLYCEMIA IMBALANCE [295605] (04/07/11) ANXIETY [175972] (04/09/11) Ineffective Coping [840800] (04/09/11) SELF CARE DEFICIT [643542] (04/09/11) ALTERATION IN MOOD [322650] (04/09/11) Data: Requested repeat dose of PRN [...] Ongoing Active Multi-Disciplinary problems: ALTERED THOUGHT PROCESSES [258456] (03/22/11) ALTERATION IN SLEEP [113271] (03/23/11) KNOWLEDGE DEFICIT [757770] (04/07/11) NUTRITION [755451] (04/07/11) RISK FOR INFECTION [252603] (04/07/11) GLYCEMIA IMBALANCE [960794] (04/07/11) ANXIETY [322070] (04/09/11) Ineffective Coping [941085] (04/09/11) SELF CARE DEFICIT [242191] (04/09/11) ALTERATION IN MOOD [742455] (04/09/11) Data: Patient in bed at beginning of shift. Pleasant and cooperative. Woke up for 1700 [place] injection. One of the two pens in drawer is cracked. Med compliant and cooperative about NPO order for tomorrow mornings ECT. Pt requested all HS meds except his ambien at 1900 and has been in tv room [place] or working on his word puzzle book. His FS at 1700 was 235. Pt reported feeling clammy and hot around 2100. FS at 2100 [id number]. Action: RN continues to monitor pt for [...] Management Active Multi-Disciplinary problems: ALTERED THOUGHT PROCESSES [435214] (03/22/11) ALTERATION IN SLEEP [840814] (03/23/11) KNOWLEDGE DEFICIT [342385] (04/07/11) NUTRITION [894362] (04/07/11) RISK FOR INFECTION [755238] (04/07/11) GLYCEMIA IMBALANCE [886132] (04/07/11) ANXIETY [500931] (04/09/11) Ineffective Coping [926137] (04/09/11) SELF CARE DEFICIT [975470] (04/09/11) ALTERATION IN MOOD [484001] (04/09/11) Data: The patient's finger stick at [...] EST Active Multi-Disciplinary problems: ALTERED THOUGHT PROCESSES [857641] (03/22/11) ALTERATION IN SLEEP [026112] (03/23/11) KNOWLEDGE DEFICIT [678701] (04/07/11) NUTRITION [730552] (04/07/11) RISK FOR INFECTION [213597] (04/07/11) GLYCEMIA IMBALANCE [719720] (04/07/11) ANXIETY [650475] (04/09/11) Ineffective Coping [105726] (04/09/11) SELF CARE DEFICIT [808956] (04/09/11) ALTERATION IN MOOD [401604] (04/09/11) Data: Pt req and received Ambien [...] three hours. Reported pass going well, went Frequent Browser. Reported indigestion after returning. Patient's mood and [...] Care - Abril Sheppard RN - 04/14/2011 2606 EST Problem: SELF CARE DEFICIT Goal: Increase Group Attendance Intervention: Monitor & document participation Active Multi-Disciplinary problems: ALTERED THOUGHT PROCESSES [435403] (03/22/11) ALTERATION IN SLEEP [474271] (03/23/11) KNOWLEDGE DEFICIT [844638] (04/07/11) NUTRITION [366469] (04/07/11) RISK FOR INFECTION [315145] (04/07/11) GLYCEMIA IMBALANCE [330045] (04/07/11) ANXIETY [380167] (04/09/11) Ineffective Coping [013583] (04/09/11) SELF CARE DEFICIT [957387] (04/09/11) ALTERATION IN MOOD [568371] (04/09/11) Data: Pt isolative to his room most of shift. FS in am 143 (2 units Novolog administered), noon 238. Pt independently went to dining room for breakfast after awakening. Pt requested Ativan 1 mg afteram meds, when asked what his anxiety symptoms were, I don't know, this typewriter assembly and parts inspector responded that somepeople experience muscle tension & [...] EST Active Multi-Disciplinary problems: ALTERED THOUGHT PROCESSES [632182] (03/22/11) ALTERATION IN SLEEP [174283] (03/23/11) KNOWLEDGE DEFICIT [027400] (04/07/11) NUTRITION [563238] (04/07/11) RISK FOR INFECTION [041248] (04/07/11) GLYCEMIA IMBALANCE [878853] (04/07/11) ANXIETY [624663] (04/09/11) Ineffective Coping [977128] (04/09/11) SELF CARE DEFICIT [262707] (04/09/11) ALTERATION IN MOOD [108959] (04/09/11) Data: Pt req and received Ambien [...] Ongoing Active Multi-Disciplinary problems: ALTERED THOUGHT PROCESSES [460186] (03/22/11) ALTERATION IN SLEEP [469848] (03/23/11) KNOWLEDGE DEFICIT [411420] (04/07/11) NUTRITION [607952] (04/07/11) RISK FOR INFECTION [926831] (04/07/11) GLYCEMIA IMBALANCE [466282] (04/07/11) ANXIETY [738156] (04/09/11) Ineffective Coping [782992] (04/09/11) SELF CARE DEFICIT [735800] (04/09/11) ALTERATION IN MOOD [515928] (04/09/11) [id number] Data: Resting in bed at start of [...] continueto monitor. MEGHAN MELCHOR RN 04/13/2011 18:50 [id number] Assumed care of pt. Pleasant and cooperative [...] Care - Matt Coats RN - 04/13/2011 0636 EST Problem: ALTERATION IN SLEEP Goal: Reports Nightly Sleep, Duration And Quality Outcome: Ongoing Active Multi-Disciplinary problems: ALTERED THOUGHT PROCESSES [261680] (03/22/11) ALTERATION IN SLEEP [186040] (03/23/11) KNOWLEDGE DEFICIT [855612] (04/07/11) NUTRITION [681562] (04/07/11) RISK FOR INFECTION [584126] (04/07/11) GLYCEMIA IMBALANCE [492206] (04/07/11) ANXIETY [821261] (04/09/11) Ineffective Coping [104258] (04/09/11) SELF CARE DEFICIT [775464] (04/09/11) ALTERATION IN MOOD [227520] (04/09/11) Data: Requested repeat dose of Ambien [...] Ongoing Active Multi-Disciplinary problems: ALTERED THOUGHT PROCESSES [164831] (03/22/11) ALTERATION IN SLEEP [449586] (03/23/11) KNOWLEDGE DEFICIT [045202] (04/07/11) NUTRITION [016213] (04/07/11) RISK FOR INFECTION [585972] (04/07/11) GLYCEMIA IMBALANCE [425052] (04/07/11) ANXIETY [479880] (04/09/11) Ineffective Coping [456056] (04/09/11) SELF CARE DEFICIT [464751] (04/09/11) ALTERATION IN MOOD [201998] (04/09/11) Data: Napping at the start of [...] concerns/fears Active Multi-Disciplinary problems: ALTERED THOUGHT PROCESSES [451105] (03/22/11) ALTERATION IN SLEEP [498736] (03/23/11) KNOWLEDGE DEFICIT [337861] (04/07/11) NUTRITION [297124] (04/07/11) RISK FOR INFECTION [614460] (04/07/11) GLYCEMIA IMBALANCE [415593] (04/07/11) ANXIETY [494714] (04/09/11) Ineffective Coping [318463] (04/09/11) SELF CARE DEFICIT [299330] (04/09/11) ALTERATION IN MOOD [281591] (04/09/11) Data: Finger sticks were 173 at [...] Care - Matt Coats RN - 04/12/2011 0628 EST Problem: ALTERATION IN SLEEP Goal: Reports Nightly Sleep, Duration And Quality Outcome: Ongoing Active Multi-Disciplinary problems: ALTERED THOUGHT PROCESSES [501748] (03/22/11) ALTERATION IN SLEEP [492110] (03/23/11) KNOWLEDGE DEFICIT [109026] (04/07/11) NUTRITION [355469] (04/07/11) RISK FOR INFECTION [431170] (04/07/11) GLYCEMIA IMBALANCE [970899] (04/07/11) ANXIETY [569486] (04/09/11) Ineffective Coping [010562] (04/09/11) SELF CARE DEFICIT [205783] (04/09/11) ALTERATION IN MOOD [956412] (04/09/11) Data: Asked for his second dose [...] Care - Meghan Melchor RN - 04/11/2011 7902 EST Problem: NUTRITION Patient unable to self-regulate blood glucose level Goal: Blood Glucose Control Maintain plasma glucose levels within expected range. Outcome: Ongoing Active Multi-Disciplinary problems: ALTERED THOUGHT PROCESSES [766684] (03/22/11) ALTERATION IN SLEEP [706684] (03/23/11) KNOWLEDGE DEFICIT [136203] (04/07/11) NUTRITION [297372] (04/07/11) RISK FOR INFECTION [020480] (04/07/11) GLYCEMIA IMBALANCE [166772] (04/07/11) ANXIETY [001210] (04/09/11) Ineffective Coping [465282] (04/09/11) SELF CARE DEFICIT [201361] (04/09/11) ALTERATION IN MOOD [322593] (04/09/11) Data: Napping at start of shift until about 1710. Complaints of right shoulder pain 10/27; little relief from prn percocet. C/o heartburn I've had heartburn since I ate those sausages this morning; resident health education director notified; new order for pepcid 20 mg [...] Ongoing Active Multi-Disciplinary problems: ALTERED THOUGHT PROCESSES [834222] (03/22/11) ALTERATION IN SLEEP [154393] (03/23/11) KNOWLEDGE DEFICIT [792589] (04/07/11) NUTRITION [035162] (04/07/11) RISK FOR INFECTION [831148] (04/07/11) GLYCEMIA IMBALANCE [601835] (04/07/11) ANXIETY [312840] (04/09/11) Ineffective Coping [172928] (04/09/11) SELF CARE DEFICIT [984767] (04/09/11) ALTERATION IN MOOD [227792] (04/09/11) Data: Pt awake at start of shift and out in milieu. At 0015 pt was observed by staff to be eating ice cream, a cookie, and other snack foods. This typewriter assembly and parts inspector spoke with pt about remaining NPO for [...] Ongoing Active Multi-Disciplinary problems: ALTERED THOUGHT PROCESSES [080731] (03/22/11) ALTERATION IN SLEEP [551208] (03/23/11) KNOWLEDGE DEFICIT [157482] (04/07/11) NUTRITION [955449] (04/07/11) RISK FOR INFECTION [927192] (04/07/11) GLYCEMIA IMBALANCE [509561] (04/07/11) ANXIETY [446498] (04/09/11) Ineffective Coping [419144] (04/09/11) SELF CARE DEFICIT [841803] (04/09/11) ALTERATION IN MOOD [623324] (04/09/11) Data: Pt reports his mood is [...] Care - Rema Garcia RN - 04/10/2011 7067 EST Problem: Ineffective Coping Goal: Verbalizes Improved Well Being Outcome: Ongoing Active Multi-Disciplinary problems: ALTERED THOUGHT PROCESSES [196427] (03/22/11) ALTERATION IN SLEEP [074723] (03/23/11) KNOWLEDGE DEFICIT [289549] (04/07/11) NUTRITION [216652] (04/07/11) RISK FOR INFECTION [732640] (04/07/11) GLYCEMIA IMBALANCE [966812] (04/07/11) ANXIETY [534445] (04/09/11) Ineffective Coping [214299] (04/09/11) SELF CARE DEFICIT [751831] (04/09/11) ALTERATION IN MOOD [372546] (04/09/11) Data: Pt denies SI/HI, A/V/H, and states he does have some pain in his shoulder in which he denied the need for medication. Pt was pleasant and engaging in conversation with typewriter assembly and parts inspector. Pt discussed his diabetes and how he manages it at home. Pt also discussed the things his used to do to help himwith the diabetes before she . Pt became tearful when talking about her. Pt smiled and was appropriate. Pt was able to laugh and joke at times with typewriter assembly and parts inspector. When asked if pt felt less depressed [...] the day. Pt stated this am to typewriter assembly and parts inspector that he felt tired and was noted [...] Ongoing Active Multi-Disciplinary problems: ALTERED THOUGHT PROCESSES [886824] (03/22/11) ALTERATION IN SLEEP [144474] (03/23/11) KNOWLEDGE DEFICIT [262198] (04/07/11) NUTRITION [486451] (04/07/11) RISK FOR INFECTION [590066] (04/07/11) GLYCEMIA IMBALANCE [009673] (04/07/11) ANXIETY [967437] (04/09/11) Ineffective Coping [139327] (04/09/11) SELF CARE DEFICIT [917447] (04/09/11) ALTERATION IN MOOD [900756] (04/09/11) Data: Pt requested and received repeat [...] Shift Active Multi-Disciplinary problems: ALTERED THOUGHT PROCESSES [791077] (03/22/11) ALTERATION IN SLEEP [382479] (03/23/11) KNOWLEDGE DEFICIT [966706] (04/07/11) NUTRITION [720385] (04/07/11) RISK FOR INFECTION [948968] (04/07/11) GLYCEMIA IMBALANCE [347180] (04/07/11) ANXIETY [302499] (04/09/11) Ineffective Coping [259642] (04/09/11) SELF CARE DEFICIT [734141] (04/09/11) ALTERATION IN MOOD [251144] (04/09/11) Data: Napping at start of shift; [...] Ongoing Active Multi-Disciplinary problems: ALTERED THOUGHT PROCESSES [534529] (03/22/11) ALTERATION IN SLEEP [378344] (03/23/11) KNOWLEDGE DEFICIT [885328] (04/07/11) NUTRITION [085359] (04/07/11) RISK FOR INFECTION [438157] (04/07/11) GLYCEMIA IMBALANCE [798999] (04/07/11) ANXIETY [844811] (04/09/11) Ineffective Coping [666823] (04/09/11) SELF CARE DEFICIT [772442] (04/09/11) ALTERATION IN MOOD [770196] (04/09/11) Data: Was npo for ECT this morning. The maria isabel was inserted by the IVRN. Was escorted to [facility] by the T and [...] Unilateral Dosing Protocol: 0.3 ms Pulse-width Protocol ([facility]) Pulse width: 0.3 msec Frequency: 50 Hz [...] Outcome: Ongoing Active Multi-Disciplinary problems: FALL RISK [773737] (03/22/11) ALTERED THOUGHT PROCESSES [894595] (03/22/11) ALTERATION IN SLEEP [260583] (03/23/11) ANXIETY [684796] (03/24/11) KNOWLEDGE DEFICIT [625099] (04/07/11) NUTRITION [957892] (04/07/11) RISK FOR INFECTION [359639] (04/07/11) GLYCEMIA IMBALANCE [485038] (04/07/11) Data: Pt awake at start of [...] the unit. Slept approximately 4.5 hours on overnight houseperson. DAVID BUSTILLO RN 04/09/2011 6:46 * Plan of Care - Meghan Melchor RN - 04/08/20112046 EST Problem: ALTERED THOUGHT PROCESSES Goal: Desires Improvement In Ability To Think & Concentrate Outcome: Ongoing Active Multi-Disciplinary problems: FALL RISK [457452] (03/22/11) ALTERED THOUGHT PROCESSES [459064] (03/22/11) ALTERATION IN SLEEP [368189] (03/23/11) ANXIETY [021362] (03/24/11) KNOWLEDGE DEFICIT [558596] (04/07/11) NUTRITION [447094] (04/07/11) RISK FOR INFECTION [365241] (04/07/11) GLYCEMIA IMBALANCE [663921] (04/07/11) Data: Denies SI/HI. Shoulder pain 10/27; [...] Hyperglycemia Management Active Multi-Disciplinary problems: FALL RISK [773272] (03/22/11) ALTERED THOUGHT PROCESSES [834488] (03/22/11) ALTERATION IN SLEEP [091956] (03/23/11) ANXIETY [994836] (03/24/11) KNOWLEDGE DEFICIT [868920] (04/07/11) NUTRITION [067971] (04/07/11) RISK FOR INFECTION [614600] (04/07/11) GLYCEMIA IMBALANCE [921898] (04/07/11) Data: Fingerstick at 0750 was 251 [...] and reasons Active Multi-Disciplinary problems: FALL RISK [674142] (03/22/11) ALTERED THOUGHT PROCESSES [532373] (03/22/11) ALTERATION IN SLEEP [911475] (03/23/11) ANXIETY [351797] (03/24/11) KNOWLEDGE DEFICIT [951181] (04/07/11) NUTRITION [229188] (04/07/11) RISK FOR INFECTION [033371] (04/07/11) GLYCEMIA IMBALANCE [728829] (04/07/11) Data: Patient was awake at the [...] Care - Meghan Melchor RN - 04/07/2011 8097 EST Problem: ALTERED THOUGHT PROCESSES Goal: Desires Improvement In Ability To Think & Concentrate Outcome: Ongoing Active Multi-Disciplinary problems: FALL RISK [118337] (03/22/11) ALTERED THOUGHT PROCESSES [266132] (03/22/11) ALTERATION IN SLEEP [226038] (03/23/11) ANXIETY [564251] (03/24/11) KNOWLEDGE DEFICIT [104803] (04/07/11) NUTRITION [017378] (04/07/11) RISK FOR INFECTION [242419] (04/07/11) GLYCEMIA IMBALANCE [035443] (04/07/11) Data: Denies SI/HI. C/o shoulder pain [...] diabetes management Active Multi-Disciplinary problems: FALL RISK [987543] (03/22/11) ALTERED THOUGHT PROCESSES [074719] (03/22/11) ALTERATION IN SLEEP [410427] (03/23/11) ANXIETY [916745] (03/24/11) KNOWLEDGE DEFICIT [221804] (04/07/11) NUTRITION [626942] (04/07/11) RISK FOR INFECTION [365960] (04/07/11) GLYCEMIA IMBALANCE [470012] (04/07/11) Data: Was npo for ECT this morning. The maria isabel was inserted by the INRN. Attended a morning group before going for ECT. Was escorted to [facility] by the MHT. After [...] inserted by the IVRN. Was escorted to [facility] for ECT by the [...] Unilateral Dosing Protocol: 0.3 ms Pulse-width Protocol ([facility]) Pulse width: 0.3 msec Frequency: 50 Hz [...] Outcome: Ongoing Active Multi-Disciplinary problems: FALL RISK [031358] (03/22/11) ALTERED THOUGHT PROCESSES [756056] (03/22/11) ALTERATION IN SLEEP [621873] (03/23/11) ANXIETY [028964] (03/24/11) Data: Asked for repeat dose of [...] Outcome: Ongoing Active Multi-Disciplinary problems: FALL RISK [028507] (03/22/11) ALTERED THOUGHT PROCESSES [159507] (03/22/11) ALTERATION IN SLEEP [693672] (03/23/11) ANXIETY [067577] (03/24/11) Data: Patient was asleep at onset [...] with others Active Multi-Disciplinary problems: FALL RISK [170072] (03/22/11) ALTERED THOUGHT PROCESSES [819121] (03/22/11) ALTERATION IN SLEEP [496983] (03/23/11) ANXIETY [594533] (03/24/11) Data: The patient has been appropriate [...] on his tray. He went directly to legal secretary to resolve the matter as if [...] Outcome: Ongoing Active Multi-Disciplinary problems: FALL RISK [527765] (03/22/11) ALTERED THOUGHT PROCESSES [897238] (03/22/11) ALTERATION IN SLEEP [565617] (03/23/11) ANXIETY [266864] (03/24/11) Data: Asked for his second dose [...] Outcome: Ongoing Active Multi-Disciplinary problems: FALL RISK [511452] (03/22/11) ALTERED THOUGHT PROCESSES [726273] (03/22/11) ALTERATION IN SLEEP [203414] (03/23/11) ANXIETY [365319] (03/24/11) Data: Patient was resting in bed [...] Care - Ervin Osorio RN - 04/05/2011 0938 EST Problem: ALTERED THOUGHT PROCESSES Goal: Effective communication and interaction with others Outcome: Ongoing Active Multi-Disciplinary problems: FALL RISK [631548] (03/22/11) ALTERED THOUGHT PROCESSES [793616] (03/22/11) ALTERATION IN SLEEP [345376] (03/23/11) ANXIETY [167431] (03/24/11) Data: FS this am 155. Pt [...] Outcome: Ongoing Active Multi-Disciplinary problems: FALL RISK [802468] (03/22/11) ALTERED THOUGHT PROCESSES [743495] (03/22/11) ALTERATION IN SLEEP [630098] (03/23/11) ANXIETY [228246] (03/24/11) Data: Awake at beginning of shift. Used several doses of nicotine inhaler while up. When patient said he could not sleep near the 03:00 mary, the typewriter assembly and parts inspector suggested that he go lie down if [...] of Cyndie - Christina Torres - 04/04/2011 6084 EST Problem: ALTERED THOUGHT PROCESSES Goal: Effective [...] Outcome: Ongoing Active Multi-Disciplinary problems: FALL RISK [283040] (03/22/11) ALTERED THOUGHT PROCESSES [089211] (03/22/11) ALTERATION IN SLEEP [574682] (03/23/11) ANXIETY [336977] (03/24/11) Data: Pt denies SI/HI, A/V/H, and pain. Pt is very irritable and dismissive with typewriter assembly and parts inspector. Pt denied needing any help and was [...] Unilateral Dosing Protocol: 0.3 ms Pulse-width Protocol ([facility]) Pulse width: 0.3 msec Frequency: 50 Hz [...] and reasons Active Multi-Disciplinary problems: FALL RISK [289052] (03/22/11) ALTERED THOUGHT PROCESSES [320508] (03/22/11) ALTERATION IN SLEEP [262515] (03/23/11) ANXIETY [091504] (03/24/11) Data: De[ressed. Diabetes, ECT Action: Routine [...] & Concentrate Active Multi-Disciplinary problems: FALL RISK [411904] (03/22/11) ALTERED THOUGHT PROCESSES [497238] (03/22/11) ALTERATION IN SLEEP [947728] (03/23/11) ANXIETY [909175] (03/24/11) Data: Patient pleasant upon awakening this AM. Allowed this typewriter assembly and parts inspector to administer medications, and take his FS [...] Novolog with his lunch. Irritable with this typewriter assembly and parts inspector around 1200. After visitors left, patient was much more pleasant to interact with. He sat in the day room with this typewriter assembly and parts inspector and engaged. He spoke of his frustration [...] self-confidence even as a child. Herecalls the [place] and remembers how sad and scared he was at that time. He wonders whether other children felt the same way, or if he was different. Patient declined the writing for [employer] this afternoon, even though highly encouraged [...] and reasons Active Multi-Disciplinary problems: FALL RISK [001214] (03/22/11) ALTERED THOUGHT PROCESSES [188245] (03/22/11) ALTERATION IN SLEEP [909333] (03/23/11) ANXIETY [416985] (03/24/11) Data: Pt watching TV on milieu at start of shift. Pt ate multiple snacks before going to bed including peanut butter crackers, mac and cheese, & ice cream. V/s stable. Pt documented asleep @ 0234, out of bed from 7721-8568, no further awakenings noted. Action: Perform routine observations. Monitor v/s, mood & sleep. Supportive interactions. Response: Pt cooperative with this typewriter assembly and parts inspector, smiled and joked while having v/s checked. No needs voiced. Pt slept about 4 hours thus far. Abril Sheppard RN 04/03/2011 6:32 * Plan of Care - Loraine Serna RN - 04/02/2011 0039 EST Problem: ALTERATION IN SLEEP Goal: Informs Staff If Unable To Sleep Intervention: Encourage patient to inform staff if awake at rounds Problem: ALTERATION IN SLEEP Goal: Informs Staff If Unable To Sleep Outcome: Ongoing Problem: ANXIETY Goal: Verbalizes Ways To Manage Anxiety Outcome: Ongoing Active Multi-Disciplinary problems: FALL RISK [050289] (03/22/11) ALTERED THOUGHT PROCESSES [332245] (03/22/11) ALTERATION IN SLEEP [582639] (03/23/11) ANXIETY [561770] (03/24/11) Data: Patient watched tv, social with [...] & Concentrate Active Multi-Disciplinary problems: FALL RISK [397031] (03/22/11) ALTERED THOUGHT PROCESSES [274923] (03/22/11) ALTERATION IN SLEEP [872973] (03/23/11) ANXIETY [418520] (03/24/11) Data: Patient slept well last night. [...] lots of sighing when interacting with this typewriter assembly and parts inspector. Continues to talk about this situation being unreal. Will not fully engage with this typewriter assembly and parts inspector when asked. PRN Ativan 1 mg given [id number] for anxiety. Patient returned to bed after this. Remained asleep for the rest of the shift. Noreports of S/I to this typewriter assembly and parts inspector. Action: Attempted to engage with patient, offered [...] Sukhdeep Barcenas CRNA 04/02/2011 Cosigned by Josue Butlre MD at 04/16/2011 10:34 EST * ECT [...] Unilateral Dosing Protocol: 0.3 ms Pulse-width Protocol ([facility]) Pulse width: 0.3 msec Frequency: 50 Hz [...] and reasons Active Multi-Disciplinary problems: FALL RISK [312922] (03/22/11) ALTERED THOUGHT PROCESSES [468817] (03/22/11) ALTERATION IN SLEEP [032262] (03/23/11) ANXIETY [921171] (03/24/11) Data: Pt documented asleep @ 0034. [...] Outcome: Ongoing Active Multi-Disciplinary problems: FALL RISK [152672] (03/22/11) ALTERED THOUGHT PROCESSES [697102] (03/22/11) ALTERATION IN SLEEP [655319] (03/23/11) ANXIETY [130584] (03/24/11) Data: Patient watched tv, social with peers, irritable. Patient shrugging his shoulders and sighingwhen talking about ECT, Glucose and anything that pertains to his care. Patient requested pastoral care visit after piccoloist left this evening with encouragement from piccoloist and his . Patient's daughter called asking if patient had ECT today. Daughter aware he is having ect tomorrow. States she is having difficulty talking to him because he is so sad and hopeless. Stated she would call him later after his company comes to visit this evening. Patient visited by piccoloist and piccoloist's this evening. Action: Assessed for SI/HI and [...] Outcome: Ongoing Active Multi-Disciplinary problems: FALL RISK [492345] (03/22/11) ALTERED THOUGHT PROCESSES [948722] (03/22/11) ALTERATION IN SLEEP [716964] (03/23/11) ANXIETY [497587] (03/24/11) Data: Patient had c/o sedation and [...] and reasons Active Multi-Disciplinary problems: FALL RISK [793154] (03/22/11) ALTERED THOUGHT PROCESSES [982197] (03/22/11) ALTERATION IN SLEEP [599499] (03/23/11) ANXIETY [415850] (03/24/11) Data: Depressed, ECT. Action: Routine observations, [...] Outcome: Ongoing Active Multi-Disciplinary problems: FALL RISK [693039] (03/22/11) ALTERED THOUGHT PROCESSES [576042] (03/22/11) ALTERATION IN SLEEP [930184] (03/23/11) ANXIETY [073030] (03/24/11) Data: Patient watched tv, social with [...] EST Active Multi-Disciplinary problems: ALTERED THOUGHT PROCESSES [138096] (03/22/11) 07-1100 Data: Depression- pt affect is blunted; mood is not great; seems irritated by attempts at interaction by this typewriter assembly and parts inspector and is avoidant, appetite is okay; pt [...] and reasons Active Multi-Disciplinary problems: FALL RISK [195615] (03/22/11) ALTERED THOUGHT PROCESSES [923495] (03/22/11) ALTERATION IN SLEEP [108124] (03/23/11) ANXIETY [849540] (03/24/11) Data: Depression, s/p OD. Depressed, ECT [...] & Concentrate Outcome: Ongoing ALTERED THOUGHT PROCESSES [618528] (03/22/11) Data: Locus of harm level 3. [...] observation. One to one offered. Activity encouraged. [place] encouraged. Ambien given at 2156 per patient [...] 03/29/20112000 EST Active Multi-Disciplinary problems: FALL RISK [189564] (03/22/11) ALTERED THOUGHT PROCESSES [135992] (03/22/11) ALTERATION IN SLEEP [869140] (03/23/11) ANXIETY [721431] (03/24/11) Data: Pt spent time in 325 [...] Care - Arthur Valenzuela RN - 03/29/2011 7536 EST Problem: ALTERED THOUGHT PROCESSES Goal: Effective [...] Outcome: Ongoing Active Multi-Disciplinary problems: FALL RISK [077512] (03/22/11) ALTERED THOUGHT PROCESSES [640514] (03/22/11) ALTERATION IN SLEEP [029135] (03/23/11) ANXIETY [295644] (03/24/11) Data: Pt was out of his room, in the milieu most of shift. He ate in the milieu and socialized. He rode the exercise bike for a while. He spent time in a group. He stated to this typewriter assembly and parts inspector it was a little odd because it was on addiction. He said he has no addiction issues. Pt called his daughter. Pt states he is not getting enough food at his meals. He was distressed at the size of the salads on [employer] Pt cooperative but somewhat negative. Pt states [...] and reasons Active Multi-Disciplinary problems: FALL RISK [681809] (03/22/11) ALTERED THOUGHT PROCESSES [293800] (03/22/11) ALTERATION IN SLEEP [656602] (03/23/11) ANXIETY [864835] (03/24/11) Data: Depression, labile mood. Action: Frequent [...] with others Active Multi-Disciplinary problems: FALL RISK [072258] (03/22/11) ALTERED THOUGHT PROCESSES [966458] (03/22/11) ALTERATION IN SLEEP [597138] (03/23/11) ANXIETY [179656] (03/24/11) Data: Pt. Has been calmer this [...] Restraint Events Active Multi-Disciplinary problems: FALL RISK [039565] (03/22/11) ALTERED THOUGHT PROCESSES [375900] (03/22/11) ALTERATION IN SLEEP [021544] (03/23/11) ANXIETY [345089] (03/24/11) Data: Patient was awake this AM, [...] become increasingly agitated. He argued with this typewriter assembly and parts inspector about his blood sugar and was demanding to know why his value was so high if he hadn't eaten anything all day. This typewriter assembly and parts inspector was unable to explain anything to this patient because he did not allow this typewriter assembly and parts inspector to talk. He then slammed the door and told this typewriter assembly and parts inspector to leave. Patient fell asleep after this and slept until about 1420. He awoke at this time and ate his lunch. After lunch patient continued to be rude to this typewriter assembly and parts inspector. He had told the MHT to screw off! when she offered to help him fill out his menu. He then refused VS from then MHT. This typewriter assembly and parts inspector went in and was able to get [...] was feeling so awful. He declined this typewriter assembly and parts inspector's offer to assist him with ordering more food, even though he remarked over and over that he has eaten nothing all day. Patient ate entire tray (1 large vegetable enchilada, small salad, milk). He states that amount of food wouldn't feed a rabbit. Patient stated this isn't real, none of this is real, I should just right here. He wouldnot elaborate with this typewriter assembly and parts inspector about any of his comments. Patient walked [...] Report - Sajan Stanford MD - 03/27/2011 0972 EST Psychiatry Procedure Note Title of Procedure: [...] Unilateral Dosing Protocol: 0.3 ms Pulse-width Protocol ([facility]) Pulse width: 0.3 msec X 2 Frequency: [...] and reasons Active Multi-Disciplinary problems: FALL RISK [724422] (03/22/11) ALTERED THOUGHT PROCESSES [890561] (03/22/11) ALTERATION IN SLEEP [646977] (03/23/11) ANXIETY [892812] (03/24/11) Data: Diabetes Mellitis, depressed, ECT Action: [...] pain or thoughts ofSI. Remains depressed. Abbi Nsah RN 03/27/2011 6:33 * Plan of Care - Dahlia Hernández - 03/26/2011 1855 EST Active Multi-Disciplinary problems: FALL RISK [265794] (03/22/11) ALTERED THOUGHT PROCESSES [040918] (03/22/11) ALTERATION IN SLEEP [067391] (03/23/11) ANXIETY [776089] (03/24/11) Data: Pt remains dismayed and negative about everything about him. R.N. Visited with pt and tried to find an activity ([employer], [employer] ) with no interest by pt. Ativan [...] Outcome: Ongoing Active Multi-Disciplinary problems: FALL RISK [827492] (03/22/11) ALTERED THOUGHT PROCESSES [472885] (03/22/11) ALTERATION IN SLEEP [270364] (03/23/11) ANXIETY [471978] (03/24/11) Data: Patient appeared to sleep a [...] Outcome: Ongoing Active Multi-Disciplinary problems: FALL RISK [205158] (03/22/11) ALTERED THOUGHT PROCESSES [164276] (03/22/11) ALTERATION IN SLEEP [978078] (03/23/11) ANXIETY [779025] (03/24/11) Data: Pt using laptop at start [...] Outcome: Ongoing Active Multi-Disciplinary problems: FALL RISK [500813] (03/22/11) ALTERED THOUGHT PROCESSES [097474] (03/22/11) ALTERATION IN SLEEP [023755] (03/23/11) ANXIETY [666133] (03/24/11) Data: Pt has been in a better mood throughout this shift spending a lot of time on the phone and computer. Pt reports good sleep and has eaten well. He is clearer in conversation and noticabely less grumpy. Pt accepted all of his medications and finger sticks. Spoke of his belief that he is bruising too easily and showed this typewriter assembly and parts inspector a couple of bruises on his right [...] and reasons Active Multi-Disciplinary problems: FALL RISK [291621] (03/22/11) ALTERED THOUGHT PROCESSES [792818] (03/22/11) ALTERATION IN SLEEP [828644] (03/23/11) ANXIETY [569147] (03/24/11) Data: Patient appeared to sleep a total of 8 hours without waking. No s/s of distress or discomfortnoted. Action: Maintained on frequent observation for safety. Response: Patient remained safe this shift. MEGA DELEON RN 03/25/2011 6:21 * Plan of Care - Cinthya Zayas RN - 03/24/2011 4586 EST Problem: ANXIETY Goal: Implements Measures To Reduce Anxiety Outcome: Ongoing Active Multi-Disciplinary problems: FALL RISK [559813] (03/22/11) ALTERED THOUGHT PROCESSES [474817] (03/22/11) ALTERATION IN SLEEP [226917] (03/23/11) ANXIETY [310758] (03/24/11) Data: Was reported that pt was [...] & Concentrate Active Multi-Disciplinary problems: FALL RISK [727236] (03/22/11) ALTERED THOUGHT PROCESSES [582997] (03/22/11) ALTERATION IN SLEEP [951040] (03/23/11) Data: Patient was much more calm [...] RN 03/24/2011 14:26 * Scanned Note-Null - [employer], Scan - 03/24/2011 1246 EST * Scanned Note-Null - [employer], Scan - 03/24/2011 1246 EST * Plan of Care - Matt Coats RN - 03/24/2011 0594 EST Problem: ALTERATION IN SLEEP Goal: Reports Nightly Sleep, Duration And Quality Outcome: Ongoing Active Multi-Disciplinary problems: FALL RISK [214941] (03/22/11) ALTERED THOUGHT PROCESSES [576854] (03/22/11) ALTERATION IN SLEEP [647752] (03/23/11) Data: Asked for an ativan tablet [...] of Care - Juana Peña - 03/23/2011 2403 EST Problem: ALTERED THOUGHT PROCESSES Goal: Desires Improvement In Ability To Think & Concentrate Active Multi-Disciplinary problems: FALL RISK [182062] (03/22/11) ALTERED THOUGHT PROCESSES [473060] (03/22/11) ALTERATION IN SLEEP [490876] (03/23/11) Data: Patient attended pet therapy at the start of the shift. Following this group he retreated to his room and became incredibly anxious and perseverative. He was focused on his clothing and the fact that he only had two outfits available. Patient was unable to listen to this typewriter assembly and parts inspector's reasoning atall. He remained in his room until dinner, completely focused on his clothing. Patient did eat in the milieu with encouragement from this typewriter assembly and parts inspector. His FS at 1700 was 260, patient [...] TV until 2244. He reported to this typewriter assembly and parts inspector that he would be unable to sleep [...] have a calm, coherent conversation with this typewriter assembly and parts inspector. He spoke about things he needs to do in the future to get better. He was a bit more optimistic. He told this typewriter assembly and parts inspector of the [place] community he [place] ([facility] compared to [place], [place]. FS at [id number]. Patient wanted to eat a sandwich at [...] Care - Adryannisha David S - 03/23/2011 1501 EST Problem: ALTERED THOUGHT PROCESSES Goal: Desires Improvement In Ability To Think & Concentrate Outcome: Ongoing Active Multi-Disciplinary problems: FALL RISK [963548] (03/22/11) ALTERED THOUGHT PROCESSES [178562] (03/22/11) ALTERATION IN SLEEP [768210] (03/23/11) Data: Pt was extremely negative during [...] Outcome: Ongoing Active Multi-Disciplinary problems: FALL RISK [921377] (03/22/11) ALTERED THOUGHT PROCESSES [921728] (03/22/11) ALTERATION IN SLEEP [249740] (03/23/11) Data: Patient was awake, anxious, confused [...] Outcome: Ongoing Active Multi-Disciplinary problems: FALL RISK [567098] (03/22/11) ALTERED THOUGHT PROCESSES [053814] (03/22/11) Data: Pt admitted to [facility] at approx dinner time. He agrees not [...] me that patient's medications were changed at [facility] where Trilafon and Nortryptyline were added and since [facility] visit pt has been increasingly confused and [...] 8:39 EST) 05/13/2011 8:39 EST Narrative Transcriptions [employer] Helper Veget[employer], Scan - 05/13/2011 8:39 EST us Scan [employer] PROCEDURE/MINOR SURGICAL ORDE RABLES Final Result * (ABNORMAL) GLUCOSE, GLUCOMETER (05/05/2011 8:03 EST) Glucose, Fingerstick 120(H) 70 - 100 mg/dl [facility] Assembly Detailer ID [id number] [facility] Comment:Test Performed by [employer] 05/05/2011 8:03 EST 05/05/2011 8:44 EST us Mary Jauregui MD CHEMISTRY & BLOOD GAS ORDER TEJ Final Result [facility] [address] [place] [address] * (ABNORMAL) GLUCOSE, GLUCOMETER (05/04/2011 21:03 EST) Glucose, Fingerstick 161(H) 70 - 100 mg/dl [facility] Assembly Detailer ID [id number] [facility] Comment:Test [facility] by [facility] 05/04/2011 21:0 3 EST 05/04/2011 21:08 EST us Mary Jauregui MD CHEMISTRY & BLOOD GAS ORDER TEJ Final Result Performing Organization Address [facility] de Phone Number [facility] [address] [place] [address] * (ABNORMAL) GLUCOSE, GLUCOMETER (05/04/2011 17:01 EST) Glucose, Fingerstick 207(H) 70 - 100 mg/dl [facility] Assembly Detailer ID [id number] [facility] Comment:Test Performed by [employer] 05/04/2011 17:0 1 EST 05/04/2011 17:09 EST us Mary Jauregui MD CHEMISTRY & BLOOD GAS ORDER TEJ Final Result Performing Organization Address [facility] Phone Number [facility] [address] [place] [address] * GLUCOSE, GLUCOMETER (05/04/2011 11:49 EST) Glucose, Fingerstick 70 70 - 100 mg/dl [facility] Assembly Detailer ID [id number] [facility] Comment:Test Performed by [employer] 05/04/2011 11:4 9 EST 05/04/2011 11:53 EST us Mary Jauregui MD CHEMISTRY & BLOOD GAS ORDER TEJ Final Result Performing Organization Address [facility] de Phone Number [facility] [address] [place] [address] * (ABNORMAL) GLUCOSE, GLUCOMETER (05/04/2011 8:14 EST) Glucose, Fingerstick 108(H) 70 - 100 mg/dl [facility] Assembly Detailer ID [id number] [facility] Comment:Test Performed by [employer] 05/04/2011 8:14 EST 05/04/2011 8:30 EST us Mary Jauregui MD CHEMISTRY & BLOOD GAS ORDER TEJ Final Result Performing Organization Address [facility]/ZIP Co de Phone Number [facility] [address] [place] [address] * (ABNORMAL) GLUCOSE, GLUCOMETER (05/03/2011 21:51 EST) Glucose, Fingerstick 176(H) 70 - 100 mg/dl [facility] Assembly Detailer ID [id number] [facility] Comment:Test Performed by [employer] 05/03/2011 21:5 1 EST 05/03/2011 21:56 EST Mary Jauregui MD CHEMISTRY & BLOOD GAS ORDER TEJ Final Result Performing Organization Address [facility] Co de Phone Number [facility] [address] [place] [address] * (ABNORMAL) GLUCOSE, GLUCOMETER (05/03/2011 16:35 EST) Glucose, Fingerstick 154(H) 70 - 100 mg/dl [facility] Assembly Detailer ID [id number] [facility] Comment:Test Performed by [employer] 05/03/2011 16:3 5 EST 05/03/2011 16:43 EST us Mary Jauregui MD CHEMISTRY & BLOOD GAS ORDER TEJ Final Result Performing Organization Address [facility] Co de Phone Number [facility] [address] [place] [address] * GLUCOSE, GLUCOMETER (05/03/2011 11:59 EST) Glucose, Fingerstick 84 70 - 100 mg/dl [facility] Assembly Detailer ID [id number] [facility] Comment:Test Performed by [employer] 05/03/2011 11:5 9 EST 05/03/2011 12:04 EST us Mary Jauregui MD CHEMISTRY & BLOOD GAS ORDER TEJ Final Result Performing Organization Address [facility]/ZIP Co de Phone Number [facility] [address] [place] [address] * GLUCOSE, GLUCOMETER (05/03/2011 8:20 EST) Glucose, Fingerstick 78 70 - 100 mg/dl [facility] Assembly Detailer ID [id number] [facility] Comment:Test Performed by [employer] 05/03/2011 8:20 EST 05/03/2011 8:29 EST Mary Jauregui MD CHEMISTRY & BLOOD GAS ORDER TEJ Final Result Performing Organization Address [facility] de Phone Number [facility] [address] [place] [address] * (ABNORMAL) GLUCOSE, GLUCOMETER (05/02/2011 21:13 EST) Glucose, Fingerstick 167(H) 70 - 100 mg/dl [facility] Assembly Detailer ID [id number] [facility] Comment:Test Performed by [employer] 05/02/2011 21:1 3 EST 05/02/2011 21:14 EST Mary Jauregui MD CHEMISTRY & BLOOD GAS ORDER TEJ Final Result Performing Organization Address [facility] de Phone Number [facility] [address] [place] [address] * (ABNORMAL) GLUCOSE, GLUCOMETER (05/02/2011 17:25 EST) Glucose, Fingerstick 208(H) 70 - 100 mg/dl [facility] Assembly Detailer ID [id number] [facility] Comment:Test Performed by [employer] 05/02/2011 17:2 5 EST 05/02/2011 17:27 EST Mary Jauregui MD CHEMISTRY & BLOOD GAS ORDER TEJ Final Result Performing Organization Address [facility] de Phone Number [facility] [address] [place] [address] * (ABNORMAL) GLUCOSE, GLUCOMETER (05/02/2011 11:55 EST) Glucose, Fingerstick 283(H) 70 - 100 mg/dl [facility] Assembly Detailer ID [id number] [facility] Comment:Test Performed by [employer] 05/02/2011 11:5 5 EST 05/02/2011 11:57 EST us Mary Jauregui MD CHEMISTRY & BLOOD GAS ORDER TEJ Final Result Performing Organization Address [facility] de Phone Number [facility] [address] [place] [address] * (ABNORMAL) GLUCOSE, GLUCOMETER (05/02/2011 8:30 EST) Glucose, Fingerstick 125(H) 70 - 100 mg/dl [facility] Assembly Detailer ID [id number] [facility] Comment:Test Performed by [employer] 05/02/2011 8:30 EST 05/02/2011 8:33 EST us Mary Jauregui MD CHEMISTRY & BLOOD GAS ORDER TEJ Final Result Performing Organization Address [facility] de Phone Number [facility] [address] [place] [address] * (ABNORMAL) GLUCOSE, GLUCOMETER (05/01/2011 20:51 EST) Glucose, Fingerstick 184(H) 70 - 100 mg/dl [facility] Assembly Detailer ID [id number] [facility] Comment:Test Performed by [employer] 05/01/2011 20:5 1 EST 05/02/2011 8:33 EST us Mary Jauregui MD CHEMISTRY & BLOOD GAS ORDER TEJ Final Result Performing Organization Address [facility] de Phone Number [facility] [address] [place] [address] * (ABNORMAL) GLUCOSE, GLUCOMETER (05/01/2011 16:57 EST) Glucose, Fingerstick 153(H) 70 - 100 mg/dl [facility] Assembly Detailer ID [id number] [facility] Comment:Test Performed by [employer] 05/01/2011 16:5 7 EST 05/01/2011 17:10 EST Mary Jauregui MD CHEMISTRY & BLOOD GAS ORDER TEJ Final Result Performing Organization Address [facility] Phone Number [facility] [address] [place] [address] * (ABNORMAL) GLUCOSE, GLUCOMETER (05/01/2011 12:03 EST) Glucose, Fingerstick 124(H) 70 - 100 mg/dl [facility] Assembly Detailer ID [id number] [facility] Comment:Test Performed by [employer] 05/01/2011 12:0 3 EST 05/01/2011 12:10 EST Mary Jauregui MD CHEMISTRY & BLOOD GAS ORDER TEJ Final Result Performing Organization Address [facility] Phone Number [facility] [address] [place] [address] * (ABNORMAL) GLUCOSE, GLUCOMETER (05/01/2011 8:01 EST) Glucose, Fingerstick 124(H) 70 - 100 mg/dl [facility] Assembly Detailer ID [id number] [facility] Comment:Test Performed by [employer] 05/01/2011 8:01 EST 05/01/2011 8:27 EST Mary Jauregui MD CHEMISTRY & BLOOD GAS ORDER TEJ Final Result Performing Organization Address [facility] de Phone Number [facility] [address] [place] [address] * (ABNORMAL) GLUCOSE, GLUCOMETER (04/30/2011 21:04 EST) Glucose, Fingerstick 142(H) 70 - 100 mg/dl [facility] Assembly Detailer ID [id number] [facility] Comment:Test Performed by [employer] 04/30/2011 21:0 4 EST 04/30/2011 21:08 EST Mary Jauregui MD CHEMISTRY & BLOOD GAS ORDER TEJ Final Result Performing Organization Address [facility] Co de Phone Number [facility] [address] [place] [address] * (ABNORMAL) GLUCOSE, GLUCOMETER (04/30/2011 16:55 EST) Glucose, Fingerstick 155(H) 70 - 100 mg/dl [facility] Assembly Detailer ID [id number] [facility] Comment:Test Performed by [employer] 04/30/2011 16:5 5 EST 04/30/2011 16:57 EST us Mary Jauregui MD CHEMISTRY & BLOOD GAS ORDER TEJ Final Result Performing Organization Address [facility] de Phone Number [facility] [address] [place] [address] * (ABNORMAL) GLUCOSE, GLUCOMETER (04/30/2011 12:22 EST) Glucose, Fingerstick 169(H) 70 - 100 mg/dl [facility] Assembly Detailer ID [id number] [facility] Comment:Test Performed by [employer] 04/30/2011 12:2 2 EST 04/30/2011 12:24 EST us Mary Jauregui MD CHEMISTRY & BLOOD GAS ORDER TEJ Final Result Performing Organization Address [facility] de Phone Number [facility] [address] [place] [address] * (ABNORMAL) GLUCOSE, GLUCOMETER (04/30/2011 8:32 EST) Glucose, Fingerstick 105(H) 70 - 100 mg/dl [facility] Assembly Detailer ID [id number] [facility] Comment:Test Performed by [employer] 04/30/2011 8:32 EST 04/30/2011 8:53 EST us Mary Jauregui MD CHEMISTRY & BLOOD GAS ORDER TEJ Final Result Performing Organization Address [facility]/ZIP Co de Phone Number [facility] [address] [place] [address] * (ABNORMAL) GLUCOSE, GLUCOMETER (04/29/2011 21:03 EST) Glucose, Fingerstick 206(H) 70 - 100 mg/dl [facility] Assembly Detailer ID [id number] [facility] Comment:Test Performed by [employer] 04/29/2011 21:0 3 EST 04/29/2011 21:04 EST us Mary Jauregui MD CHEMISTRY & BLOOD GAS ORDER TEJ Final Result Performing Organization Address [facility] Co de Phone Number [facility] [address] [place] [address] * (ABNORMAL) GLUCOSE, GLUCOMETER (04/29/2011 16:46 EST) Glucose, Fingerstick 237(H) 70 - 100 mg/dl [facility] Assembly Detailer ID [id number] [facility] Comment:Test Performed by [employer] 04/29/2011 16:4 6 EST 04/29/2011 16:48 EST us Mary Jauregui MD CHEMISTRY & BLOOD GAS ORDER TEJ Final Result Performing Organization Address [facility] Co de Phone Number [facility] [address] [place] [address] * GLUCOSE, GLUCOMETER (04/29/2011 11:52 EST) Glucose, Fingerstick 89 70 - 100 mg/dl [facility] Assembly Detailer ID [id number] [facility] Comment:Test Performed by [employer] 04/29/2011 11:5 2 EST 04/29/2011 11:57 EST us Mary Jauregui MD CHEMISTRY & BLOOD GAS ORDER TEJ Final Result Performing Organization Address [facility] Co de Phone Number [facility] [address] [place] [address] * (ABNORMAL) GLUCOSE, GLUCOMETER (04/29/2011 8:14 EST) Glucose, Fingerstick 101(H) 70 - 100 mg/dl [facility] Assembly Detailer ID [id number] [facility] Comment:Test Performed by [employer] 04/29/2011 8:14 EST 04/29/2011 8:37 EST us Mary Jauregui MD CHEMISTRY & BLOOD GAS ORDER TEJ Final Result Performing Organization Address [facility] de Phone Number [facility] [address] [place] [address] * (ABNORMAL) GLUCOSE, GLUCOMETER (04/28/2011 20:59 EST) Glucose, Fingerstick 151(H) 70 - 100 mg/dl [facility] Assembly Detailer ID [id number] [facility] Comment:Test Performed by [employer] 04/28/2011 20:5 9 EST 04/28/2011 21:01 EST us Mary Jauregui MD CHEMISTRY & BLOOD GAS ORDER TEJ Final Result Performing Organization Address [facility] de Phone Number [facility] [address] [place] [address] * (ABNORMAL) GLUCOSE, GLUCOMETER (04/28/2011 17:05 EST) Glucose, Fingerstick 143(H) 70 - 100 mg/dl [facility] Assembly Detailer ID [id number] [facility] Comment:Test Performed by [employer] 04/28/2011 17:0 5 EST 04/28/2011 17:08 EST Mary Jauregui MD CHEMISTRY & BLOOD GAS ORDER TEJ Final Result Performing Organization Address [facility] de Phone Number [facility] [address] [place] [address] * (ABNORMAL) GLUCOSE, GLUCOMETER (04/28/2011 12:21 EST) Glucose, Fingerstick 250(H) 70 - 100 mg/dl [facility] Assembly Detailer ID [id number] [facility] Comment:Test Performed by [employer] 04/28/2011 12:2 1 EST 04/28/2011 12:25 EST Mary Jauregui MD CHEMISTRY & BLOOD GAS ORDER TEJ Final Result Performing Organization Address [facility] Phone Number [facility] [address] [place] [address] * (ABNORMAL) GLUCOSE, GLUCOMETER (04/28/2011 7:45 EST) Glucose, Fingerstick 110(H) 70 - 100 mg/dl [facility] Assembly Detailer ID [id number] [facility] Comment:Test Performed by [employer] 04/28/2011 7:45 EST 04/28/2011 7:48 EST Mary Jauregui MD CHEMISTRY & BLOOD GAS ORDER TEJ Final Result Performing Organization Address [facility] Phone Number [facility] [address] [place] [address] * (ABNORMAL) GLUCOSE, GLUCOMETER (04/27/2011 20:52 EST) Glucose, Fingerstick 256(H) 70 - 100 mg/dl [facility] Assembly Detailer ID [id number] [facility] Comment:Test Performed by [employer] 04/27/2011 20:5 2 EST 04/27/2011 20:55 EST Mary Jauregui MD CHEMISTRY & BLOOD GAS ORDER TEJ Final Result Performing Organization Address [facility] de Phone Number [facility] [address] [place] [address] * (ABNORMAL) GLUCOSE, GLUCOMETER (04/27/2011 16:59 EST) Glucose, Fingerstick 214(H) 70 - 100 mg/dl [facility] Assembly Detailer ID [id number] [facility] Comment:Test Performed by [employer] 04/27/2011 16:5 9 EST 04/27/2011 17:02 EST us Mary Jauregui MD CHEMISTRY & BLOOD GAS ORDER TEJ Final Result Performing Organization Address [facility] de Phone Number [facility] [address] [place] [address] * (ABNORMAL) GLUCOSE, GLUCOMETER (04/27/2011 11:53 EST) Glucose, Fingerstick 66(L) 70 - 100 mg/dl [facility] Assembly Detailer ID [id number] [facility] Comment:Test Performed by [employer] 04/27/2011 11:5 3 EST 04/27/2011 11:55 EST us Mary Jauregui MD CHEMISTRY & BLOOD GAS ORDER TEJ Final Result Performing Organization Address [facility] de Phone Number [facility] [address] [place] [address] * (ABNORMAL) GLUCOSE, GLUCOMETER (04/27/2011 7:51 EST) Glucose, Fingerstick 209(H) 70 - 100 mg/dl [facility] Assembly Detailer ID [id number] [facility] Comment:Test Performed by [employer] 04/27/2011 7:51 EST 04/27/2011 7:54 EST us Mary Jauregui MD CHEMISTRY & BLOOD GAS ORDER TEJ Final Result Performing Organization Address [facility] Co de Phone Number [facility] [address] [place] [address] * (ABNORMAL) GLUCOSE, GLUCOMETER (04/26/2011 21:57 EST) Glucose, Fingerstick 180(H) 70 - 100 mg/dl [facility] Assembly Detailer ID [id number] [facility] Comment:Test Performed by [employer] 04/26/2011 21:5 7 EST 04/26/2011 22:00 EST us Mary Jauregui MD CHEMISTRY & BLOOD GAS ORDER TEJ Final Result Performing Organization Address [facility]/ZIP Co de Phone Number [facility] [address] [place] [address] * (ABNORMAL) GLUCOSE, GLUCOMETER (04/26/2011 16:54 EST) Glucose, Fingerstick 129(H) 70 - 100 mg/dl [facility] Assembly Detailer ID [id number] [facility] Comment:Test Performed by [employer] 04/26/2011 16:5 4 EST 04/26/2011 16:55 EST us Mary Jauregui MD CHEMISTRY & BLOOD GAS ORDER TEJ Final Result Performing Organization Address [facility] de Phone Number [facility] [address] [place] [address] * (ABNORMAL) GLUCOSE, GLUCOMETER (04/26/2011 11:53 EST) Glucose, Fingerstick 140(H) 70 - 100 mg/dl [facility] Assembly Detailer ID [id number] [facility] Comment:Test Performed by [employer] 04/26/2011 11:5 3 EST 04/26/2011 11:56 EST us Mary Jauregui MD CHEMISTRY & BLOOD GAS ORDER TEJ Final Result Performing Organization Address [facility] Co de Phone Number [facility] [address] [place] [address] * (ABNORMAL) GLUCOSE, GLUCOMETER (04/26/2011 7:54 EST) Glucose, Fingerstick 118(H) 70 - 100 mg/dl [facility] Assembly Detailer ID [id number] [facility] Comment:Test Performed by [employer] 04/26/2011 7:54 EST 04/26/2011 7:59 EST us Mary Jauregui MD CHEMISTRY & BLOOD GAS ORDER TEJ Final Result Performing Organization Address [facility] Co de Phone Number [facility] [address] [place] [address] * (ABNORMAL) GLUCOSE, GLUCOMETER (04/25/2011 20:51 EST) Glucose, Fingerstick 188(H) 70 - 100 mg/dl [facility] Assembly Detailer ID [id number] [facility] Comment:Test Performed by [employer] 04/25/2011 20:5 1 EST 04/25/2011 20:53 EST us Mary Jauregui MD CHEMISTRY & BLOOD GAS ORDER TEJ Final Result Performing Organization Address [facility] Co de Phone Number [facility] [address] [place] [address] * (ABNORMAL) GLUCOSE, GLUCOMETER (04/25/2011 17:05 EST) Glucose, Fingerstick 240(H) 70 - 100 mg/dl [facility] Assembly Detailer ID [id number] [facility] Comment:Test Performed by [employer] 04/25/2011 17:0 5 EST 04/25/2011 17:08 EST us Mary Jauregui MD CHEMISTRY & BLOOD GAS ORDER TEJ Final Result Performing Organization Address [facility] de Phone Number [facility] [address] [place] [address] * (ABNORMAL) GLUCOSE, GLUCOMETER (04/25/2011 13:22 EST) Glucose, Fingerstick 136(H) 70 - 100 mg/dl [facility] Assembly Detailer ID [id number] [facility] Comment:Test Performed by [employer] 04/25/2011 13:2 2 EST 04/25/2011 13:24 EST Mary Jauregui MD CHEMISTRY & BLOOD GAS ORDER TEJ Final Result Performing Organization Address [facility] de Phone Number [facility] [address] [place] [address] * GLUCOSE, GLUCOMETER (04/25/2011 8:19 EST) Glucose, Fingerstick 96 70 - 100 mg/dl [facility] Assembly Detailer ID [id number] [facility] Comment:Test Performed by [employer] 04/25/2011 8:19 EST 04/25/2011 8:22 EST Mary Jauregui MD CHEMISTRY & BLOOD GAS ORDER TEJ Final Result Performing Organization Address [facility] de Phone Number [facility] [address] [place] [address] * (ABNORMAL) GLUCOSE, GLUCOMETER (04/24/2011 20:52 EST) Glucose, Fingerstick 283(H) 70 - 100 mg/dl [facility] Assembly Detailer ID [id number] [facility] Comment:Test Performed by [employer] 04/24/2011 20:5 2 EST 04/24/2011 20:55 EST us Mary Jauregui MD CHEMISTRY & BLOOD GAS ORDER TEJ Final Result Performing Organization Address [facility] de Phone Number [facility] [address] [place] [address] * (ABNORMAL) GLUCOSE, GLUCOMETER (04/24/2011 17:17 EST) Glucose, Fingerstick 189(H) 70 - 100 mg/dl [facility] Assembly Detailer ID [id number] [facility] Comment:Test Performed by [employer] 04/24/2011 17:1 7 EST 04/24/2011 17:21 EST us Mary Jauregui MD CHEMISTRY & BLOOD GAS ORDER TEJ Final Result Performing Organization Address [facility] Co de Phone Number [facility] [address] [place] [address] * GLUCOSE, GLUCOMETER (04/24/2011 11:52 EST) Glucose, Fingerstick 100 70 - 100 mg/dl [facility] Assembly Detailer ID [id number] [facility] Comment:Test Performed by [employer] 04/24/2011 11:5 2 EST 04/24/2011 11:55 EST us Mary Jauregui MD CHEMISTRY & BLOOD GAS ORDER TEJ Final Result Performing Organization Address [facility] de Phone Number [facility] [address] [place] [address] * (ABNORMAL) GLUCOSE, GLUCOMETER (04/24/2011 8:13 EST) Glucose, Fingerstick 126(H) 70 - 100 mg/dl [facility] [place] [id number] [facility] Comment:Test Performed by [employer] 04/24/2011 8:13 EST 04/24/2011 8:16 EST us Mary Jauregui MD CHEMISTRY & BLOOD GAS ORDER ETJ Final Result Performing Organization Address [facility] Phone Number [facility] [address] [place] [address] * (ABNORMAL) GLUCOSE, GLUCOMETER (04/23/2011 20:54 EST) Glucose, Fingerstick 248(H) 70 - 100 mg/dl [facility] Assembly Detailer ID [id number] [facility] Comment:Test Performed by [employer] 04/23/2011 20:5 4 EST 04/23/2011 20:57 EST us Mary Jauregui MD CHEMISTRY & BLOOD GAS ORDER TEJ Final Result Performing Organization Address [facility] de Phone Number [facility] [address] [place] [address] * (ABNORMAL) GLUCOSE, GLUCOMETER (04/23/2011 17:17 EST) Glucose, Fingerstick 174(H) 70 - 100 mg/dl [facility] Assembly Detailer ID [id number] [facility] Comment:Test Performed by [employer] 04/23/2011 17:1 7 EST 04/23/2011 17:19 EST us Mary Jauregui MD CHEMISTRY & BLOOD GAS ORDER TEJ Final Result Performing Organization Address [facility]/ZIP Co de Phone Number [facility] [address] [place] [address] * (ABNORMAL) GLUCOSE, GLUCOMETER (04/23/2011 12:08 EST) Glucose, Fingerstick 230(H) 70 - 100 mg/dl [facility] Assembly Detailer ID [id number] [facility] Comment:Test Performed by [employer] 04/23/2011 12:0 8 EST 04/23/2011 12:09 EST us Mary Jauregui MD CHEMISTRY & BLOOD GAS ORDER TEJ Final Result Performing Organization Address [facility] de Phone Number [facility] [address] [place] [address] * (ABNORMAL) GLUCOSE, GLUCOMETER (04/23/2011 9:26 EST) Glucose, Fingerstick 161(H) 70 - 100 mg/dl [facility] Assembly Detailer ID [id number] [facility] Comment:Test Performed by [employer] 04/23/2011 9:26 EST 04/23/2011 9:27 EST us Mary Jauregui MD CHEMISTRY & BLOOD GAS ORDER TEJ Final Result Performing Organization Address [facility] de Phone Number [facility] [address] [place] [address] * (ABNORMAL) GLUCOSE, GLUCOMETER (04/23/2011 8:19 EST) Glucose, Fingerstick 132(H) 70 - 100 mg/dl [facility] Assembly Detailer [place] [id number] [facility] Comment:Test Performed by [employer] 04/23/2011 8:19 EST 04/23/2011 8:24 EST us Mary Jauregui MD CHEMISTRY & BLOOD GAS ORDER TEJ Final Result Performing Organization Address [facility] Co de Phone Number [facility] [address] [place] [address] * (ABNORMAL) GLUCOSE, GLUCOMETER (04/22/2011 20:51 EST) Glucose, Fingerstick 238(H) 70 - 100 mg/dl [facility] Assembly Detailer [place] [id number] [facility] Comment:Test Performed by [employer] 04/22/2011 20:5 1 EST 04/22/2011 20:53 EST us Mary Jauregui MD CHEMISTRY & BLOOD GAS ORDER TEJ Final Result Performing Organization Address [facility] Co de Phone Number [facility] [address] [place] [address] * (ABNORMAL) GLUCOSE, GLUCOMETER (04/22/2011 16:57 EST) Glucose, Fingerstick 180(H) 70 - 100 mg/dl [facility] Assembly Detailer ID [id number] [facility] Comment:Test Performed by [employer] 04/22/2011 16:5 7 EST 04/22/2011 17:06 EST us Mary Jauregui MD CHEMISTRY & BLOOD GAS ORDER TEJ Final Result Performing Organization Address [facility] de Phone Number [facility] [address] [place] [address] * (ABNORMAL) GLUCOSE, GLUCOMETER (04/22/2011 11:48 EST) Glucose, Fingerstick 158(H) 70 - 100 mg/dl [facility] Assembly Detailer [place] [id number] [facility] Comment:Test Performed by rsing [employer] 04/22/2011 11:4 8 EST 04/22/2011 11:50 EST us Mary Jauregui MD CHEMISTRY & BLOOD GAS ORDER TEJ Final Result Performing Organization Address [facility] de Phone Number [facility] [address] [place] [address] * (ABNORMAL) GLUCOSE, GLUCOMETER (04/22/2011 8:02 EST) Glucose, Fingerstick 138(H) 70 - 100 mg/dl [facility] Assembly Detailer ID [id number] [facility] Comment:Test Performed by [employer] 04/22/2011 8:02 EST 04/22/2011 8:46 EST us Mary Jauregui MD CHEMISTRY & BLOOD GAS ORDER TEJ Final Result Performing Organization Address [facility] de Phone Number [facility] [address] [place] [address] * (ABNORMAL) GLUCOSE, GLUCOMETER (04/21/2011 21:02 EST) Glucose, Fingerstick 256(H) 70 - 100 mg/dl [facility] Assembly Detailer ID [id number] [facility] Comment:Test Performed by [employer] 04/21/2011 21:0 2 EST 04/21/2011 21:05 EST us Mary Jauregui MD CHEMISTRY & BLOOD GAS ORDER TEJ Final Result Performing Organization Address [facility] de Phone Number [facility] [address] [place] [address] * (ABNORMAL) GLUCOSE, GLUCOMETER (04/21/2011 17:25 EST) Glucose, Fingerstick 175(H) 70 - 100 mg/dl [facility] Assembly Detailer ID [id number] [facility] Comment:Test Performed by [employer] 04/21/2011 17:2 5 EST 04/21/2011 17:27 EST Mary Jauregui MD CHEMISTRY & BLOOD GAS ORDER TEJ Final Result Performing Organization Address [facility] de Phone Number [facility] [address] [place] [address] * (ABNORMAL) GLUCOSE, GLUCOMETER (04/21/2011 12:17 EST) Glucose, Fingerstick 127(H) 70 - 100 mg/dl [facility] Assembly Detailer ID [id number] [facility] Comment:Test Performed by [employer] 04/21/2011 12:1 7 EST 04/21/2011 12:25 EST Mary Jauregui MD CHEMISTRY & BLOOD GAS ORDER TEJ Final Result Performing Organization Address [facility] Phone Number [facility] [address] [place] [address] * (ABNORMAL) GLUCOSE, GLUCOMETER (04/21/2011 8:19 EST) Glucose, Fingerstick 137(H) 70 - 100 mg/dl [facility] Assembly Detailer ID [id number] [facility] Comment:Test Performed by [employer] 04/21/2011 8:19 EST 04/21/2011 8:23 EST us Mary Jaruegui MD CHEMISTRY & BLOOD GAS ORDER TEJ Final Result Performing Organization Address [facility] Phone Number [facility] [address] [place] [address] * (ABNORMAL) GLUCOSE, GLUCOMETER (04/20/2011 21:18 EST) Glucose, Fingerstick 215(H) 70 - 100 mg/dl [facility] Assembly Detailer ID [id number] [facility] Comment:Test Performed by [employer] 04/20/2011 21:1 8 EST 04/20/2011 21:22 EST Mary Jauregui MD CHEMISTRY & BLOOD GAS ORDER TEJ Final Result Performing Organization Address [facility] de Phone Number [facility] [address] [place] [address] * (ABNORMAL) GLUCOSE, GLUCOMETER (04/20/2011 16:52 EST) Glucose, Fingerstick 168(H) 70 - 100 mg/dl [facility] Assembly Detailer ID [id number] [facility] Comment:Test Performed by [employer] 04/20/2011 16:5 2 EST 04/20/2011 16:55 EST us Mary Jauregui MD CHEMISTRY & BLOOD GAS ORDER TEJ Final Result Performing Organization Address [facility] Phone Number [facility] [address] [place] [address] * (ABNORMAL) GLUCOSE, GLUCOMETER (04/20/2011 11:53 EST) Glucose, Fingerstick 106(H) 70 - 100 mg/dl [facility] Assembly Detailer ID [id number] [facility] Comment:Test Performed by [employer] 04/20/2011 11:5 3 EST 04/20/2011 11:55 EST us Mary Jauregui MD CHEMISTRY & BLOOD GAS ORDER TEJ Final Result Performing Organization Address [facility] de Phone Number [facility] [address] [place] [address] * (ABNORMAL) GLUCOSE, GLUCOMETER (04/20/2011 7:54 EST) Glucose, Fingerstick 174(H) 70 - 100 mg/dl [facility] Assembly Detailer [place] [id number] [facility] Comment:Test Performed by [employer] 04/20/2011 7:54 EST 04/20/2011 7:57 EST us Mary Jauregui MD CHEMISTRY & BLOOD GAS ORDER TEJ Final Result Performing Organization Address [facility] Phone Number [facility] [address] [place] [address] * (ABNORMAL) GLUCOSE, GLUCOMETER (04/19/2011 20:52 EST) Glucose, Fingerstick 191(H) 70 - 100 mg/dl [facility] Assembly Detailer [place] [id number] [facility] Comment:Test Performed by [employer] 04/19/2011 20:5 2 EST 04/19/2011 20:54 EST us Mary Jauregui MD CHEMISTRY & BLOOD GAS ORDER TEJ Final Result Performing Organization Address [facility]/State/ZIP Co de Phone Number [facility] [address] [place] [address] * (ABNORMAL) GLUCOSE, GLUCOMETER (04/19/2011 16:48 EST) Glucose, Fingerstick 240(H) 70 - 100 mg/dl [facility] Assembly Detailer ID [id number] [facility] Comment:Test Performed by [employer] 04/19/2011 16:4 8 EST 04/19/2011 16:53 EST us Mary Jauregui MD CHEMISTRY & BLOOD GAS ORDER TEJ Final Result Performing Organization Address [facility] Co de Phone Number [facility] [address] [place] [address] * (ABNORMAL) GLUCOSE, GLUCOMETER (04/19/2011 12:05 EST) Glucose, Fingerstick 114(H) 70 - 100 mg/dl [facility] Assembly Detailer ID [id number] [facility] Comment:Test Performed by [employer] 04/19/2011 12:0 5 EST 04/19/2011 12:08 EST us Mary Jauregui MD CHEMISTRY & BLOOD GAS ORDER TEJ Final Result Performing Organization Address [facility] Co de Phone Number [facility] [address] [place] [address] * (ABNORMAL) GLUCOSE, GLUCOMETER (04/19/2011 8:15 EST) Glucose, Fingerstick 141(H) 70 - 100 mg/dl [facility] Assembly Detailer [place] [id number] [facility] Comment:Test Performed by [employer] 04/19/2011 8:15 EST 04/19/2011 8:26 EST us Mary Jauregui MD CHEMISTRY & BLOOD GAS ORDER TEJ Final Result Performing Organization Address [facility] Co de Phone Number [facility] [address] [place] [address] * (ABNORMAL) GLUCOSE, GLUCOMETER (04/18/2011 21:23 EST) Glucose, Fingerstick 147(H) 70 - 100 mg/dl [facility] Assembly Detailer ID [id number] [facility] Comment:Test Performed by [employer] 04/18/2011 21:2 3 EST 04/18/2011 21:28 EST us Mary Jauregui MD CHEMISTRY & BLOOD GAS ORDER TEJ Final Result Performing Organization Address [facility] de Phone Number [facility] [address] [place] [address] * (ABNORMAL) GLUCOSE, GLUCOMETER (04/18/2011 16:51 EST) Glucose, Fingerstick 191(H) 70 - 100 mg/dl [facility] Assembly Detailer ID [id number] [facility] Comment:Test Performed by [employer] 04/18/2011 16:5 1 EST 04/18/2011 16:59 EST us Mary Jauregui MD CHEMISTRY & BLOOD GAS ORDER TEJ Final Result Performing Organization Address [facility] de Phone Number [facility] [address] [place] [address] * GLUCOSE, GLUCOMETER (04/18/2011 13:34 EST) Glucose, Fingerstick 88 70 - 100 mg/dl [facility] Assembly Detailer ID [id number] [facility] Comment:Test Performed by [employer] 04/18/2011 13:3 4 EST 04/18/2011 13:36 EST us Mary Jauregui MD CHEMISTRY & BLOOD GAS ORDER TEJ Final Result Performing Organization Address [facility] de Phone Number [facility] [address] [place] [address] * (ABNORMAL) GLUCOSE, GLUCOMETER (04/18/2011 8:01 EST) Glucose, Fingerstick 132(H) 70 - 100 mg/dl [facility] Assembly Detailer ID [id number] [facility] Comment:Test Performed by [employer] 04/18/2011 8:01 EST 04/18/2011 8:07 EST us Mary Jauregui MD CHEMISTRY & BLOOD GAS ORDER TEJ Final Result Performing Organization Address [facility] de Phone Number [facility] [address] [place] [address] * (ABNORMAL) GLUCOSE, GLUCOMETER (04/17/2011 21:48 EST) Glucose, Fingerstick 214(H) 70 - 100 mg/dl [facility] Assembly Detailer ID [id number] [facility] Comment:Test Performed by [employer] 04/17/2011 21:4 8 EST 04/17/2011 21:51 EST us Mary Jauregui MD CHEMISTRY & BLOOD GAS ORDER TEJ Final Result Performing Organization Address [facility] de Phone Number [facility] [address] [place] [address] * (ABNORMAL) GLUCOSE, GLUCOMETER (04/17/2011 17:05 EST) Glucose, Fingerstick 227(H) 70 - 100 mg/dl [facility] Assembly Detailer ID [id number] [facility] Comment:Test Performed by [employer] 04/17/2011 17:0 5 EST 04/17/2011 17:06 EST us Mary Jauregui MD CHEMISTRY & BLOOD GAS ORDER TEJ Final Result Performing Organization Address [facility] de Phone Number [facility] [address] [place] [address] * (ABNORMAL) GLUCOSE, GLUCOMETER (04/17/2011 12:14 EST) Glucose, Fingerstick 166(H) 70 - 100 mg/dl [facility] Assembly Detailer ID [id number] [facility] Comment:Test Performed by [employer] 04/17/2011 12:1 4 EST 04/17/2011 12:16 EST us Mary Jauregui MD CHEMISTRY & BLOOD GAS ORDER TEJ Final Result Performing Organization Address [facility] Co de Phone Number [facility] [address] [place] [address] * (ABNORMAL) GLUCOSE, GLUCOMETER (04/17/2011 8:19 EST) Glucose, Fingerstick 214(H) 70 - 100 mg/dl [facility] Assembly Detailer ID [id number] [facility] Comment:Test Performed by [employer] 04/17/2011 8:19 EST 04/17/2011 8:20 EST us Mary Jauregui MD CHEMISTRY & BLOOD GAS ORDER TEJ Final Result Performing Organization Address [facility] de Phone Number [facility] [address] [place] [address] * (ABNORMAL) GLUCOSE, GLUCOMETER (04/16/2011 20:39 EST) Glucose, Fingerstick 257(H) 70 - 100 mg/dl [facility] Assembly Detailer ID [id number] [facility] Comment:Test Performed by [employer] 04/16/2011 20:3 9 EST 04/16/2011 20:44 EST us Mary Jauregui MD CHEMISTRY & BLOOD GAS ORDER TEJ Final Result Performing Organization Address [facility] de Phone Number [facility] [address] [place] [address] * (ABNORMAL) GLUCOSE, GLUCOMETER (04/16/2011 17:32 EST) Glucose, Fingerstick 184(H) 70 - 100 mg/dl [facility] Assembly Detailer ID [id number] [facility] Comment:Test Performed by [employer] 04/16/2011 17:3 2 EST 04/16/2011 17:34 EST us Mary Jauregui MD CHEMISTRY & BLOOD GAS ORDER TEJ Final Result Performing Organization Address [facility]/ZIP Co de Phone Number [facility] [address] [place] [address] * (ABNORMAL) GLUCOSE, GLUCOMETER (04/16/2011 11:05 EST) Glucose, Fingerstick 240(H) 70 - 100 mg/dl [facility] Assembly Detailer ID [id number] [facility] Comment:Test Performed by [employer] 04/16/2011 11:0 5 EST 04/16/2011 11:07 EST us Mary Jauregui MD CHEMISTRY & BLOOD GAS ORDER TEJ Final Result Performing Organization Address [facility] de Phone Number [facility] [address] [place] [address] * (ABNORMAL) GLUCOSE, GLUCOMETER (04/16/2011 8:05 EST) Glucose, Fingerstick 147(H) 70 - 100 mg/dl [facility] Assembly Detailer ID [id number] [facility] Comment:Test Performed by [employer] 04/16/2011 8:05 EST 04/16/2011 8:09 EST us Mary Jauregui MD CHEMISTRY & BLOOD GAS ORDER TEJ Final Result Performing Organization Address [facility] de Phone Number [facility] [address] [place] [address] * (ABNORMAL) GLUCOSE, GLUCOMETER (04/15/2011 21:17 EST) Glucose, Fingerstick 149(H) 70 - 100 mg/dl [facility] Assembly Detailer ID [id number] [facility] Comment:Test Performed by [employer] 04/15/2011 21:1 7 EST 04/15/2011 21:20 EST us Mary Jauregui MD CHEMISTRY & BLOOD GAS ORDER TEJ Final Result Performing Organization Address [facility] Co de Phone Number [facility] [address] [place] [address] * (ABNORMAL) GLUCOSE, GLUCOMETER (04/15/2011 16:52 EST) Glucose, Fingerstick 235(H) 70 - 100 mg/dl [facility] Assembly Detailer ID [id number] [facility] Comment:Test Performed by [employer] 04/15/2011 16:5 2 EST 04/15/2011 16:54 EST us Mary Jauregui MD CHEMISTRY & BLOOD GAS ORDER TEJ Final Result Performing Organization Address [facility] Co de Phone Number [facility] [address] [place] [address] * (ABNORMAL) GLUCOSE, GLUCOMETER (04/15/2011 11:47 EST) Glucose, Fingerstick 169(H) 70 - 100 mg/dl [facility] Assembly Detailer ID [id number] [facility] Comment:Test Performed by rsing Services 04/15/2011 11:4 7 EST 04/15/2011 11:49 EST us Mary Jauregui MD CHEMISTRY & BLOOD GAS ORDER TEJ Final Result Performing Organization Address [facility] Co de Phone Number [facility] [address] [place] [address] * (ABNORMAL) GLUCOSE, GLUCOMETER (04/15/2011 7:42 EST) Glucose, Fingerstick 212(H) 70 - 100 mg/dl [facility] Assembly Detailer ID [id number] [facility] Comment:Test Performed by rsing [employer] 04/15/2011 7:42 EST 04/15/2011 7:46 EST us Mary Jauregui MD CHEMISTRY & BLOOD GAS ORDER TEJ Final Result Performing Organization Address [facility] Co de Phone Number [facility] [address] [place] [address] * (ABNORMAL) GLUCOSE, GLUCOMETER (04/15/2011 2:06 EST) Glucose, Fingerstick 108(H) 70 - 100 mg/dl [facility] Assembly Detailer ID [id number] [facility] Comment:Test Performed by [employer] 04/15/2011 2:06 EST 04/15/2011 6:18 EST us Mary Jauregui MD CHEMISTRY & BLOOD GAS ORDER TEJ Final Result Performing Organization Address [facility] Phone Number [facility] [address] [place] [address] * (ABNORMAL) GLUCOSE, GLUCOMETER (04/14/2011 22:27 EST) Glucose, Fingerstick 367(H) 70 - 100 mg/dl [facility] Assembly Detailer ID [id number] [facility] Comment:Test Performed by rsing [employer] 04/14/2011 22:2 7 EST 04/14/2011 22:51 EST us Mary Jauregui MD CHEMISTRY & BLOOD GAS ORDER TEJ Final Result Performing Organization Address [facility] de Phone Number [facility] [address] [place] [address] * (ABNORMAL) GLUCOSE, GLUCOMETER (04/14/2011 16:49 EST) Glucose, Fingerstick 206(H) 70 - 100 mg/dl [facility] Assembly Detailer ID [id number] [facility] Comment:Test Performed by rsing [employer] 04/14/2011 16:4 9 EST 04/14/2011 16:50 EST Mary Jauregui MD CHEMISTRY & BLOOD GAS ORDER TEJ Final Result Performing Organization Address [facility] Phone Number [facility] [address] [place] [address] * (ABNORMAL) GLUCOSE, GLUCOMETER (04/14/2011 12:09 EST) Glucose, Fingerstick 238(H) 70 - 100 mg/dl [facility] Assembly Detailer ID [id number] [facility] Comment:Test Performed by [employer] 04/14/2011 12:0 9 EST 04/14/2011 12:17 EST us Mary Jauregui MD CHEMISTRY & BLOOD GAS ORDER TEJ Final Result Performing Organization Address [facility] Phone Number [facility] [address] [place] [address] * (ABNORMAL) GLUCOSE, GLUCOMETER (04/14/2011 7:58 EST) Glucose, Fingerstick 143(H) 70 - 100 mg/dl [facility] Assembly Detailer ID [id number] [facility] Comment:Test Performed by [employer] 04/14/2011 7:58 EST 04/14/2011 8:01 EST us Mary Jauregui MD CHEMISTRY & BLOOD GAS ORDER TEJ Final Result Performing Organization Address [facility] Phone Number [facility] [address] [place] [address] * (ABNORMAL) GLUCOSE, GLUCOMETER (04/13/2011 22:35 EST) Glucose, Fingerstick 209(H) 70 - 100 mg/dl [facility] Assembly Detailer ID [id number] [facility] Comment:Test Performed by [employer] 04/13/2011 22:3 5 EST 04/13/2011 22:38 EST us Mary Jauregui MD CHEMISTRY & BLOOD GAS ORDER TEJ Final Result Performing Organization Address [facility] de Phone Number [facility] [address] [place] [address] * (ABNORMAL) GLUCOSE, GLUCOMETER (04/13/2011 21:12 EST) Glucose, Fingerstick 237(H) 70 - 100 mg/dl [facility] Assembly Detailer ID [id number] [facility] Comment:Test Performed by [employer] 04/13/2011 21:1 2 EST 04/13/2011 21:15 EST us Mary Jauregui MD CHEMISTRY & BLOOD GAS ORDER TEJ Final Result Performing Organization Address [facility] Phone Number [facility] [address] [place] [address] * (ABNORMAL) GLUCOSE, GLUCOMETER (04/13/2011 17:14 EST) Glucose, Fingerstick 254(H) 70 - 100 mg/dl [facility] Assembly Detailer ID [id number] [facility] Comment:Test Performed by [employer] 04/13/2011 17:1 4 EST 04/13/2011 17:15 EST us Mary Jauregui MD CHEMISTRY & BLOOD GAS ORDER TEJ Final Result Performing Organization Address [facility] Phone Number [facility] [address] [place] [address] * (ABNORMAL) GLUCOSE, GLUCOMETER (04/13/2011 11:24 EST) Glucose, Fingerstick 211(H) 70 - 100 mg/dl [facility] Assembly Detailer ID [id number] [facility] Comment:Test Performed by [employer] 04/13/2011 11:2 4 EST 04/13/2011 11:26 EST us Mary Jauregui MD CHEMISTRY & BLOOD GAS ORDER TEJ Final Result Performing Organization Address [facility] Phone Number [facility] [address] [place] [address] * (ABNORMAL) GLUCOSE, GLUCOMETER (04/13/2011 7:39 EST) Glucose, Fingerstick 164(H) 70 - 100 mg/dl [facility] Assembly Detailer ID [id number] [facility] Comment:Test Performed by [employer] 04/13/2011 7:39 EST 04/13/2011 7:40 EST us Mary Jauregui MD CHEMISTRY & BLOOD GAS ORDER TEJ Final Result Performing Organization Address [facility]/State/ZIP Co de Phone Number [facility] [address] [place] [address] * (ABNORMAL) GLUCOSE, GLUCOMETER (04/12/2011 20:47 EST) Glucose, Fingerstick 208(H) 70 - 100 mg/dl [facility] Assembly Detailer ID [id number] [facility] Comment:Test Performed by [employer] 04/12/2011 20:4 7 EST 04/13/2011 1:47 EST us Mary Jauregui MD CHEMISTRY & BLOOD GAS ORDER TEJ Final Result Performing Organization Address [facility] [facility] de Phone Number [facility] [address] [place] [address] * (ABNORMAL) GLUCOSE, GLUCOMETER (04/12/2011 17:00 EST) Glucose, Fingerstick 223(H) 70 - 100 mg/dl [facility] Assembly Detailer ID [id number] [facility] Comment:Test Performed by [employer] 04/12/2011 17:0 0 EST 04/12/2011 17:02 EST us Mary Jauregui MD CHEMISTRY & BLOOD GAS ORDER TEJ Final Result Performing Organization Address [facility] de Phone Number [facility] [address] [place] [address] * (ABNORMAL) GLUCOSE, GLUCOMETER (04/12/2011 11:54 EST) Glucose, Fingerstick 183(H) 70 - 100 mg/dl [facility] Assembly Detailer [place] [id number] [facility] Comment:Test Performed by [employer] 04/12/2011 11:5 4 EST 04/12/2011 11:55 EST us Mary Jauregui MD CHEMISTRY & BLOOD GAS ORDER TEJ Final Result Performing Organization Address [facility] Co de Phone Number [facility] [address] [place] [address] * (ABNORMAL) GLUCOSE, GLUCOMETER (04/12/2011 7:34 EST) Glucose, Fingerstick 173(H) 70 - 100 mg/dl [facility] Assembly Detailer ID [id number] [facility] Comment:Test Performed by r[employer] Services 04/12/2011 7:34 EST 04/12/2011 8:00 EST us Mary Jaurgeui MD CHEMISTRY & BLOOD GAS ORDER TEJ Final Result Performing Organization Address [facility] de Phone Number [facility] [address] [place] [address] * (ABNORMAL) GLUCOSE, GLUCOMETER (04/11/2011 20:57 EST) Glucose, Fingerstick 242(H) 70 - 100 mg/dl [facility] Assembly Detailer ID [id number] [facility] Comment:[facility] by [facility] 04/11/2011 20:5 7 EST 04/11/2011 21:01 EST us Mary Jauregui MD CHEMISTRY & BLOOD GAS ORDER TEJ Final Result Performing Organization Address [facility] de Phone Number [facility] [address] [place] [address] * (ABNORMAL) GLUCOSE, GLUCOMETER (04/11/2011 17:14 EST) Glucose, Fingerstick 164(H) 70 - 100 mg/dl [facility] Assembly Detailer ID [id number] [facility] Comment:Test Performed by r[employer] Services 04/11/2011 17:1 4 EST 04/11/2011 17:17 EST Mary Jauregui MD CHEMISTRY & BLOOD GAS ORDER TEJ Final Result Performing Organization Address [facility] de Phone Number [facility] [address] [place] [address] * (ABNORMAL) GLUCOSE, GLUCOMETER (04/11/2011 7:58 EST) Glucose, Fingerstick 106(H) 70 - 100 mg/dl [facility] Assembly Detailer ID [id number] [facility] Comment:Test Performed by [employer] 04/11/2011 7:58 EST 04/11/2011 8:08 EST Mary Jauregui MD CHEMISTRY & BLOOD GAS ORDER TEJ Final Result Performing Organization Address [facility] de Phone Number [facility] [address] [place] [address] * (ABNORMAL) GLUCOSE, GLUCOMETER (04/10/2011 21:09 EST) Glucose, Fingerstick 280(H) 70 - 100 mg/dl [facility] Assembly Detailer ID [id number] [facility] Comment:Test Performed by [employer] 04/10/2011 21:0 9 EST 04/10/2011 21:11 EST Mary Jauregui MD CHEMISTRY & BLOOD GAS ORDER TEJ Final Result Performing Organization Address [facility] Co de Phone Number [facility] [address] [place] [address] * (ABNORMAL) GLUCOSE, GLUCOMETER (04/10/2011 17:00 EST) Glucose, Fingerstick 226(H) 70 - 100 mg/dl [facility] Assembly Detailer ID [id number] [facility] Comment:Test Performed by [employer] 04/10/2011 17:0 0 EST 04/10/2011 17:02 EST us Mary Jauregui MD CHEMISTRY & BLOOD GAS ORDER TEJ Final Result Performing Organization Address [facility] Co de Phone Number [facility] [address] [place] [address] * (ABNORMAL) GLUCOSE, GLUCOMETER (04/10/2011 11:55 EST) Glucose, Fingerstick 150(H) 70 - 100 mg/dl [facility] Assembly Detailer ID [id number] [facility] Comment:Test Performed by [employer] 04/10/2011 11:5 5 EST 04/10/2011 11:57 EST us Mary Jauregui MD CHEMISTRY & BLOOD GAS ORDER TEJ Final Result Performing Organization Address [facility] Phone Number [facility] [address] [place] [address] * (ABNORMAL) GLUCOSE, GLUCOMETER (04/10/2011 7:59 EST) Glucose, Fingerstick 221(H) 70 - 100 mg/dl [facility] Assembly Detailer ID [id number] [facility] Comment:Test Performed by [employer] 04/10/2011 7:59 EST 04/10/2011 8:02 EST us Mary Jauregui MD CHEMISTRY & BLOOD GAS ORDER TEJ Final Result Performing Organization Address [facility] Phone Number [facility] [address] [place] [address] * (ABNORMAL) GLUCOSE, GLUCOMETER (04/09/2011 21:20 EST) Glucose, Fingerstick 295(H) 70 - 100 mg/dl [facility] Assembly Detailer [place] [id number] [facility] Comment:Test Performed by [employer] 04/09/2011 21:2 0 EST 04/09/2011 21:22 EST us Mary Jauregui MD CHEMISTRY & BLOOD GAS ORDER TEJ Final Result Performing Organization Address [facility] de Phone Number [facility] [address] [place] [address] * (ABNORMAL) GLUCOSE, GLUCOMETER (04/09/2011 17:29 EST) Glucose, Fingerstick 168(H) 70 - 100 mg/dl [facility] Assembly Detailer ID [id number] [facility] Comment:Test Performed by [employer] 04/09/2011 17:2 9 EST 04/09/2011 17:30 EST us Mary Jauregui MD CHEMISTRY & BLOOD GAS ORDER TEJ Final Result Performing Organization Address [facility]/ZIP Co de Phone Number [facility] [address] [place] [address] * (ABNORMAL) GLUCOSE, GLUCOMETER (04/09/2011 12:11 EST) Glucose, Fingerstick 218(H) 70 - 100 mg/dl [facility] Assembly Detailer ID [id number] [facility] Comment:Test Performed by [employer] 04/09/2011 12:1 1 EST 04/09/2011 12:13 EST us Mary Jauregui MD CHEMISTRY & BLOOD GAS ORDER TEJ Final Result Performing Organization Address [facility] de Phone Number [facility] [address] [place] [address] * (ABNORMAL) GLUCOSE, GLUCOMETER (04/09/2011 10:49 EST) Glucose, Fingerstick 221(H) 70 - 100 mg/dl [facility] Assembly Detailer [place] [id number] [facility] Comment:Test Performed by [employer] 04/09/2011 10:4 9 EST 04/09/2011 10:53 EST us Mary Jauregui MD CHEMISTRY & BLOOD GAS ORDER TEJ Final Result Performing Organization Address [facility] de Phone Number [facility] [address] [place] [address] * (ABNORMAL) GLUCOSE, GLUCOMETER (04/09/2011 7:59 EST) Glucose, Fingerstick 177(H) 70 - 100 mg/dl [facility] Assembly Detailer ID [id number] [facility] Comment:Test Performed by [employer] 04/09/2011 7:59 EST 04/09/2011 8:02 EST us Mary Jauregui MD CHEMISTRY & BLOOD GAS ORDER TEJ Final Result Performing Organization Address [facility]/ZIP Co de Phone Number [facility] [address] [place] [id number] * (ABNORMAL) GLUCOSE, GLUCOMETER (04/08/2011 21:04 EST) Glucose, Fingerstick 228(H) 70 - 100 mg/dl [facility] Assembly Detailer ID [id number] [facility] Comment:Test Performed by [employer] 04/08/2011 21:0 4 EST 04/08/2011 21:08 EST us Mary Jauregui MD CHEMISTRY & BLOOD GAS ORDER TEJ Final Result Performing Organization Address [facility] Co de Phone Number [facility] [address] [place] [address] * (ABNORMAL) GLUCOSE, GLUCOMETER (04/08/2011 17:22 EST) Glucose, Fingerstick 163(H) 70 - 100 mg/dl [facility] Assembly Detailer ID [id number] [facility] Comment:Test Performed by [employer] 04/08/2011 17:2 2 EST 04/08/2011 17:25 EST us Mary Jauregui MD CHEMISTRY & BLOOD GAS ORDER TEJ Final Result Performing Organization Address [facility] Co de Phone Number [facility] [address] [place] [address] * (ABNORMAL) GLUCOSE, GLUCOMETER (04/08/2011 11:41 EST) Glucose, Fingerstick 254(H) 70 - 100 mg/dl [facility] Assembly Detailer ID [id number] [facility] Comment:Test Performed by [employer] 04/08/2011 11:4 1 EST 04/08/2011 11:43 EST us Mary Jauregui MD CHEMISTRY & BLOOD GAS ORDER TEJ Final Result Performing Organization Address [facility] Co de Phone Number [facility] [address] [place] [address] * (ABNORMAL) GLUCOSE, GLUCOMETER (04/08/2011 8:08 EST) Glucose, Fingerstick 251(H) 70 - 100 mg/dl [facility] Assembly Detailer ID [id number] [facility] Comment:Test Performed by [employer]sing Services 04/08/2011 8:08 EST 04/08/2011 8:11 EST Mary Jauregui MD CHEMISTRY & BLOOD GAS ORDER TEJ Final Result Performing Organization Address [facility] de Phone Number [facility] [address] [place] [address] * (ABNORMAL) GLUCOSE, GLUCOMETER (04/07/2011 23:56 EST) Glucose, Fingerstick 203(H) 70 - 100 mg/dl [facility] Assembly Detailer ID [id number] [facility] Comment:Test Per[facility] by [facility] [employer] 04/07/2011 23:5 6 EST 04/07/2011 23:59 EST Mary Jauregui MD CHEMISTRY & BLOOD GAS ORDER TEJ Final Result Performing Organization Address [facility] Phone Number [facility] [address] [place] [address] * (ABNORMAL) GLUCOSE, GLUCOMETER (04/07/2011 20:46 EST) Glucose, Fingerstick 271(H) 70 - 100 mg/dl [facility] Assembly Detailer ID [id number] [facility] Comment:Test Per[facility] by [facility] [employer] 04/07/2011 20:4 6 EST 04/07/2011 20:48 EST Mary Jauregui MD CHEMISTRY & BLOOD GAS ORDER TEJ Final Result Performing Organization Address [facility] de Phone Number [facility] [address] [place] [address] * (ABNORMAL) GLUCOSE, GLUCOMETER (04/07/2011 17:02 EST) Glucose, Fingerstick 168(H) 70 - 100 mg/dl [facility] Assembly Detailer ID [id number] [facility] Comment:Test Performed by [employer] 04/07/2011 17:0 2 EST 04/07/2011 17:04 EST us Mary Jauregui MD CHEMISTRY & BLOOD GAS ORDER TEJ Final Result Performing Organization Address [facility] de Phone Number [facility] [address] [place] [address] * (ABNORMAL) GLUCOSE, GLUCOMETER (04/07/2011 11:46 EST) Glucose, Fingerstick 255(H) 70 - 100 mg/dl [facility] Assembly Detailer ID [id number] [facility] Comment:Test Performed by [employer] 04/07/2011 11:4 6 EST 04/07/2011 11:49 EST us Mary Jauregui MD CHEMISTRY & BLOOD GAS ORDER TEJ Final Result Performing Organization Address [facility] Phone Number [facility] [address] [place] [address] * ECG REPORT - SCANNED (04/07/2011 8:08 EST) 04/07/2011 8:08 EST Narrative Transcriptions [employer], Scan - 04/07/2011 8:08 EST us Scan [employer] PROCEDURE/MINOR SURGICAL ORDE RABLES Final Result * (ABNORMAL) GLUCOSE, GLUCOMETER (04/07/2011 7:36 EST) Glucose, Fingerstick 163(H) 70 - 100 mg/dl [facility] Assembly Detailer ID [id number] [facility] Comment:Test Performed by [employer] 04/07/2011 7:36 EST 04/07/2011 7:39 EST us Mary Jauregui MD CHEMISTRY & BLOOD GAS ORDER TEJ Final Result Performing Organization Address [facility] Co de Phone Number [facility] [address] [place] [id number] * (ABNORMAL) GLUCOSE, GLUCOMETER (04/06/2011 21:21 EST) Glucose, Fingerstick 216(H) 70 - 100 mg/dl [facility] Assembly Detailer ID [id number] [facility] Comment:Test Performed by [employer] 04/06/2011 21:2 1 EST 04/06/2011 21:31 EST us Mary Jauregui MD CHEMISTRY & BLOOD GAS ORDER TEJ Final Result Performing Organization Address [facility] Co de Phone Number [facility] [address] [place] [address] * (ABNORMAL) GLUCOSE, GLUCOMETER (04/06/2011 19:25 EST) Glucose, Fingerstick 272(H) 70 - 100 mg/dl [facility] Assembly Detailer ID [id number] [facility] Comment:Test Performed by [employer] 04/06/2011 19:2 5 EST 04/06/2011 19:30 EST us Mary Jauregui MD CHEMISTRY & BLOOD GAS ORDER TEJ Final Result Performing Organization Address [facility] Co de Phone Number [facility] [address] [place] [address] * (ABNORMAL) GLUCOSE, GLUCOMETER (04/06/2011 12:06 EST) Glucose, Fingerstick 200(H) 70 - 100 mg/dl [facility] Assembly Detailer ID [id number] [facility] Comment:Test Performed by [employer] 04/06/2011 12:0 6 EST 04/06/2011 12:07 EST Mary Jauregui MD CHEMISTRY & BLOOD GAS ORDER TEJ Final Result Performing Organization Address [facility] Co de Phone Number [facility] [address] [place] [address] * (ABNORMAL) GLUCOSE, GLUCOMETER (04/06/2011 8:02 EST) Glucose, Fingerstick 267(H) 70 - 100 mg/dl [facility] Assembly Detailer ID [id number] [facility] Comment:[facility] 04/06/2011 8:02 EST 04/06/2011 8:04 EST Mary Jauregui MD CHEMISTRY & BLOOD GAS ORDER TEJ Final Result Performing Organization Address [facility] de Phone Number [facility] [address] [place] [address] * (ABNORMAL) GLUCOSE, GLUCOMETER (04/05/2011 21:37 EST) Glucose, Fingerstick 250(H) 70 - 100 mg/dl [facility] Assembly Detailer ID [id number] [facility] Comment:Test Performed by [employer] 04/05/2011 21:3 7 EST 04/05/2011 23:01 EST Mary Jauregui MD CHEMISTRY & BLOOD GAS ORDER TEJ Final Result Performing Organization Address [facility] de Phone Number [facility] [address] [place] [address] * (ABNORMAL) GLUCOSE, GLUCOMETER (04/05/2011 17:22 EST) Glucose, Fingerstick 178(H) 70 - 100 mg/dl [facility] Assembly Detailer ID [id number] [facility] Comment:[facility] 04/05/2011 17:2 2 EST 04/05/2011 17:23 EST Mary Jauregui MD CHEMISTRY & BLOOD GAS ORDER TEJ Final Result Performing Organization Address [facility] de Phone Number [facility] [address] [place] [address] * (ABNORMAL) GLUCOSE, GLUCOMETER (04/05/2011 11:52 EST) Glucose, Fingerstick 260(H) 70 - 100 mg/dl [facility] Assembly Detailer ID [id number] [facility] Comment:Test Performed by [employer] 04/05/2011 11:5 2 EST 04/05/2011 11:54 EST Mary Jauregui MD CHEMISTRY & BLOOD GAS ORDER TEJ Final Result Performing Organization Address [facility] de Phone Number [facility] [address] [place] [address] * (ABNORMAL) GLUCOSE, GLUCOMETER (04/05/2011 8:13 EST) Glucose, Fingerstick 155(H) 70 - 100 mg/dl [facility] Assembly Detailer ID [id number] [facility] Comment:Test Performed by [employer] 04/05/2011 8:13 EST 04/05/2011 8:18 EST Mary Jauregui MD CHEMISTRY & BLOOD GAS ORDER TEJ Final Result Performing Organization Address [facility] de Phone Number [facility] [address] [place] [address] * (ABNORMAL) GLUCOSE, GLUCOMETER (04/04/2011 20:50 EST) Glucose, Fingerstick 200(H) 70 - 100 mg/dl [facility] Assembly Detailer ID [id number] [facility] Comment:Test Performed by [employer] 04/04/2011 20:5 0 EST 04/04/2011 20:54 EST Mary Jauregui MD CHEMISTRY & BLOOD GAS ORDER TEJ Final Result Performing Organization Address [facility] de Phone Number [facility] [address] [place] [address] * (ABNORMAL) GLUCOSE, GLUCOMETER (04/04/2011 16:49 EST) Glucose, Fingerstick 124(H) 70 - 100 mg/dl [facility] Assembly Detailer ID [id number] [facility] Comment:Test Performed by [employer] 04/04/2011 16:4 9 EST 04/04/2011 16:52 EST us Mary Jauregui MD CHEMISTRY & BLOOD GAS ORDER TEJ Final Result [facility] [address] [place] [address] * CONSULT NUTRITION (04/04/2011 14:55 EST) Narrative [...] and follow up BENITO MEJIA RD Pager [phone] Procedure Note [address]ito Mejia RD - 04/04/2011 [...] suggest check methylmalonic acid to assess for [id number] Suggest p.o. MVM to assure pt. Meets needs for vitamins. likely vitamin Ddeficient d/t age, season and current illness. Please check vitamin Dlevel Rec: 1) will try to meet with pt again on Thursday 2) please check methylmalonic acid and vitamin D 3) p.o. Multivitamin and mineral daily Ongoing monitor and follow up BENITO MEJIA RD Pager [phone] Mary Jauregui MD INPATIENT CONSULT ORDERABLE S Final Result Performing Organization Address [facility] de Phone Number POINT OF CARE * (ABNORMAL) GLUCOSE, GLUCOMETER (04/04/2011 11:12 EST) Glucose, Fingerstick 272(H) 70 - 100 mg/dl [facility] Assembly Detailer ID [id number] [facility] Comment:Test Performed by [employer] 04/04/2011 11:1 2 EST 04/04/2011 11:25 EST us Mary Jauregui MD CHEMISTRY & BLOOD GAS ORDER TEJ Final Result Performing Organization Address [facility] de Phone Number [facility] [address] [place] [address] * (ABNORMAL) GLUCOSE, GLUCOMETER (04/04/2011 8:28 EST) Glucose, Fingerstick 139(H) 70 - 100 mg/dl [facility] Assembly Detailer ID [id number] [facility] Comment:Test Performed by [employer] 04/04/2011 8:28 EST 04/04/2011 8:40 EST Mary Jauregui MD CHEMISTRY & BLOOD GAS ORDER TEJ Final Result Performing Organization Address [facility] de Phone Number [facility] [address] [place] [address] * (ABNORMAL) GLUCOSE, GLUCOMETER (04/03/2011 16:51 EST) Glucose, Fingerstick 169(H) 70 - 100 mg/dl [facility] Assembly Detailer ID [id number] [facility] Comment:Test Performed by [employer] 04/03/2011 16:5 1 EST 04/03/2011 16:53 EST Mary Jauregui MD CHEMISTRY & BLOOD GAS ORDER TEJ Final Result Performing Organization Address [facility] de Phone Number [facility] [address] [place] [address] * (ABNORMAL) GLUCOSE, GLUCOMETER (04/03/2011 11:58 EST) Glucose, Fingerstick 241(H) 70 - 100 mg/dl [facility] Assembly Detailer ID [id number] [facility] Comment:Test Performed by [employer] 04/03/2011 11:5 8 EST 04/03/2011 12:01 EST Mary Jauregui MD CHEMISTRY & BLOOD GAS ORDER TEJ Final Result Performing Organization Address [facility] Phone Number [facility] [address] [place] [address] * (ABNORMAL) GLUCOSE, GLUCOMETER (04/03/2011 7:53 EST) Glucose, Fingerstick 195(H) 70 - 100 mg/dl [facility] Assembly Detailer ID [id number] [facility] Comment:Test Performed by [employer] 04/03/2011 7:53 EST 04/03/2011 7:54 EST us Mary Jauregui MD CHEMISTRY & BLOOD GAS ORDER TEJ Final Result Performing Organization Address [facility] de Phone Number [facility] [address] [place] [address] * (ABNORMAL) GLUCOSE, GLUCOMETER (04/02/2011 20:30 EST) Glucose, Fingerstick 214(H) 70 - 100 mg/dl [facility] Assembly Detailer ID [id number] [facility] Comment:Test Performed by [employer] 04/02/2011 20:3 0 EST 04/02/2011 20:32 EST us Mary Jauregui MD CHEMISTRY & BLOOD GAS ORDER TEJ Final Result Performing Organization Address [facility] Co de Phone Number [facility] [address] [place] [address] * (ABNORMAL) GLUCOSE, GLUCOMETER (04/02/2011 16:50 EST) Glucose, Fingerstick 131(H) 70 - 100 mg/dl [facility] Assembly Detailer ID [id number] [facility] Comment:Test Performed by [employer] 04/02/2011 16:5 0 EST 04/02/2011 16:52 EST us Mary Jauregui MD CHEMISTRY & BLOOD GAS ORDER TEJ Final Result Performing Organization Address [facility] de Phone Number [facility] [address] [place] [address] * (ABNORMAL) GLUCOSE, GLUCOMETER (04/02/2011 11:51 EST) Glucose, Fingerstick 277(H) 70 - 100 mg/dl [facility] Assembly Detailer ID [id number] [facility] Comment:Test Performed by [employer] 04/02/2011 11:5 1 EST 04/02/2011 11:52 EST Mary Jauregui MD CHEMISTRY & BLOOD GAS ORDER TEJ Final Result Performing Organization Address [facility] de Phone Number [facility] [address] [place] [address] * (ABNORMAL) GLUCOSE, GLUCOMETER (04/02/2011 10:09 EST) Glucose, Fingerstick 184(H) 70 - 100 mg/dl [facility] Assembly Detailer ID [id number] [facility] Comment:Test Performed by [employer] 04/02/2011 10:0 9 EST 04/02/2011 10:10 EST Sajan Stanford MD CHEMISTRY & BLOOD GAS ORDERA BLES Final Result Performing Organization Address [facility]/ZIP Co de Phone Number [facility] [address] [place] [address] * (ABNORMAL) GLUCOSE, GLUCOMETER (04/02/2011 8:03 EST) Glucose, Fingerstick 130(H) 70 - 100 mg/dl [facility] Assembly Detailer ID [id number] [facility] Comment:Test Performed by [employer] 04/02/2011 8:03 EST 04/02/2011 8:06 EST Sajan Stanford MD CHEMISTRY & BLOOD GAS ORDERA BLES Final Result Performing Organization Address [facility] de Phone Number [facility] [address] [place] [address] * (ABNORMAL) GLUCOSE, GLUCOMETER (04/01/2011 21:19 EST) Glucose, Fingerstick 264(H) 70 - 100 mg/dl [facility] Assembly Detailer ID [id number] [facility] Comment:Test Performed by [employer] 04/01/2011 21:1 9 EST 04/01/2011 21:22 EST Sajan Stanford MD CHEMISTRY & BLOOD GAS ORDERA BLES Final Result Performing Organization Address [facility] de Phone Number [facility] [address] [place] [address] * (ABNORMAL) GLUCOSE, GLUCOMETER (04/01/2011 17:03 EST) Glucose, Fingerstick 200(H) 70 - 100 mg/dl [facility] Assembly Detailer ID [id number] [facility] Comment:Test Performed by [employer] 04/01/2011 17:0 3 EST 04/01/2011 17:06 EST Sajan Stanford MD CHEMISTRY & BLOOD GAS ORDERA BLES Final Result Performing Organization Address [facility] Co de Phone Number [facility] [address] [place] [address] * (ABNORMAL) GLUCOSE, GLUCOMETER (04/01/2011 11:54 EST) Glucose, Fingerstick 187(H) 70 - 100 mg/dl [facility] Assembly Detailer ID [id number] [facility] Comment:Test Performed by [facility] [employer] 04/01/2011 11:5 4 EST 04/01/2011 11:55 EST Sajan Stanford MD CHEMISTRY & BLOOD GAS ORDERA BLES Final Result Performing Organization Address [facility] de Phone Number [facility] [address] [place] [address] * (ABNORMAL) GLUCOSE, GLUCOMETER (04/01/2011 8:00 EST) Glucose, Fingerstick 146(H) 70 - 100 mg/dl [facility] Assembly Detailer ID [id number] [facility] Comment:Test Performed by [facility] 04/01/2011 8:00 EST 04/01/2011 8:03 EST Sajan Stanford MD CHEMISTRY & BLOOD GAS ORDERA BLES Final Result Performing Organization Address [facility] de Phone Number [facility] [address] [place] [address] * NORTRIPTYLINE (03/31/2011 20:54 EST) Nortriptyline 87 ng/mL [facility] Comment: (Note) -- REFERENCE VALUE -- 70-170 (Therapeutic concentration), >=500 (Toxic concentration) Performed by: [facility], [address], [place] [address], Industrial Safety And Health Specialist: Yumiko Katz, Ph.D. Blood specimen (specimen) 03/31/2011 20:54 EST 03/31/2011 21:20 EST Arthur Davila MD CHEMISTRY & BLOOD GAS ORDER TEJ Final Result Performing Organization Address [facility] de Phone Number [facility] [address] [place] [address] * (ABNORMAL) GLUCOSE, GLUCOMETER (03/31/2011 20:47 EST) Glucose, Fingerstick 334(H) 70 - 100 mg/dl [facility] Assembly Detailer ID [id number] [facility] Comment:Test Performed by [employer] 03/31/2011 20:4 7 EST 03/31/2011 20:49 EST Sajan Stanford MD CHEMISTRY & BLOOD GAS ORDERA BLES Final Result Performing Organization Address [facility] Co de Phone Number [facility] [address] [place] [address] * (ABNORMAL) GLUCOSE, GLUCOMETER (03/31/2011 17:12 EST) Glucose, Fingerstick 109(H) 70 - 100 mg/dl [facility] Assembly Detailer ID [id number] [facility] Comment:Test Performed by [employer] 03/31/2011 17:1 2 EST 03/31/2011 17:14 EST Sajan Stanford MD CHEMISTRY & BLOOD GAS ORDERA BLES Final Result Performing Organization Address [facility] Co de Phone Number [facility] [address] [place] [address] * (ABNORMAL) GLUCOSE, GLUCOMETER (03/31/2011 11:29 EST) Glucose, Fingerstick 255(H) 70 - 100 mg/dl [facility] Assembly Detailer ID [id number] [facility] Comment:Test Performed by [employer] 03/31/2011 11:2 9 EST 03/31/2011 11:31 EST Sajan Stanford MD CHEMISTRY & BLOOD GAS ORDERA BLES Final Result Performing Organization Address City/[facility]/ZIP Co de Phone Number [facility] [address] [place] [address] * (ABNORMAL) GLUCOSE, GLUCOMETER (03/31/2011 8:39 EST) Glucose, Fingerstick 128(H) 70 - 100 mg/dl [facility] Assembly Detailer ID [id number] [facility] Comment:Test Performed by [employer] 03/31/2011 8:39 EST 03/31/2011 8:46 EST Sajan Stanford MD CHEMISTRY & BLOOD GAS ORDERA BLES Final Result Performing Organization Address City/[facility]/ZIP Co de Phone Number [facility] [address] [place] [address] * (ABNORMAL) GLUCOSE, GLUCOMETER (03/30/2011 20:58 EST) Glucose, Fingerstick 238(H) 70 - 100 mg/dl [facility] Assembly Detailer ID [id number] [facility] Comment:Test Performed by [employer] 03/30/2011 20:5 8 EST 03/30/2011 21:03 EST Sajan Stanford MD CHEMISTRY & BLOOD GAS ORDERA BLES Final Result Performing Organization Address [facility] Co de Phone Number [facility] [address] [place] [address] * (ABNORMAL) GLUCOSE, GLUCOMETER (03/30/2011 16:54 EST) Glucose, Fingerstick 171(H) 70 - 100 mg/dl [facility] Assembly Detailer ID [id number] [facility] Comment:Test Performed by [employer] 03/30/2011 16:5 4 EST 03/30/2011 16:57 EST Sajan Stanford MD CHEMISTRY & BLOOD GAS ORDERA BLES Final Result Performing Organization Address [facility]/ZIP Co de Phone Number [facility] [address] [place] [address] * (ABNORMAL) GLUCOSE, GLUCOMETER (03/30/2011 11:53 EST) Glucose, Fingerstick 257(H) 70 - 100 mg/dl [facility] Assembly Detailer ID [id number] [facility] Comment:Test Performed by [employer] 03/30/2011 11:5 3 EST 03/30/2011 11:56 EST Sajan Stanford MD CHEMISTRY & BLOOD GAS ORDERA BLES Final Result Performing Organization Address [facility] de Phone Number [facility] [address] [place] [address] * (ABNORMAL) GLUCOSE, GLUCOMETER (03/30/2011 7:42 EST) Glucose, Fingerstick 125(H) 70 - 100 mg/dl [facility] Assembly Detailer ID [id number] [facility] Comment:Test Performed by [employer] 03/30/2011 7:42 EST 03/30/2011 7:47 EST Sajan Stanford MD CHEMISTRY & BLOOD GAS ORDERA BLES Final Result Performing Organization Address [facility] de Phone Number [facility] [address] [place] [address] * (ABNORMAL) GLUCOSE, GLUCOMETER (03/30/2011 0:13 EST) Glucose, Fingerstick 185(H) 70 - 100 mg/dl [facility] Assembly Detailer ID [id number] [facility] Comment:Test Performed by [employer] 03/30/2011 0:13 EST 03/30/2011 5:34 EST Sajan Stanford MD CHEMISTRY & BLOOD GAS ORDERA BLES Final Result Performing Organization Address [facility] de Phone Number [facility] [address] [place] [address] * (ABNORMAL) GLUCOSE, GLUCOMETER (03/29/2011 20:47 EST) Glucose, Fingerstick 344(H) 70 - 100 mg/dl [facility] Assembly Detailer ID [id number] [facility] Comment:Test Performed by [employer] 03/29/2011 20:4 7 EST 03/29/2011 20:51 EST Sajan Stanford MD CHEMISTRY & BLOOD GAS ORDERA BLES Final Result Performing Organization Address [facility] Co de Phone Number [facility] [address] [place] [address] * (ABNORMAL) GLUCOSE, GLUCOMETER (03/29/2011 17:06 EST) Glucose, Fingerstick 138(H) 70 - 100 mg/dl [facility] Assembly Detailer ID [id number] [facility] Comment:Test Performed by [employer] 03/29/2011 17:0 6 EST 03/29/2011 17:08 EST Sajan Stanford MD CHEMISTRY & BLOOD GAS ORDERA BLES Final Result Performing Organization Address [facility] Co de Phone Number [facility] [address] [place] [address] * (ABNORMAL) GLUCOSE, GLUCOMETER (03/29/2011 12:19 EST) Glucose, Fingerstick 217(H) 70 - 100 mg/dl [facility] Assembly Detailer ID [id number] [facility] Comment:Test Performed by [employer] 03/29/2011 12:1 9 EST 03/29/2011 12:21 EST Sajan Stanford MD CHEMISTRY & BLOOD GAS ORDERA BLES Final Result Performing Organization Address [facility] de Phone Number [facility] [address] [place] [address] * (ABNORMAL) GLUCOSE, GLUCOMETER (03/29/2011 7:52 EST) Glucose, Fingerstick 101(H) 70 - 100 mg/dl [facility] Assembly Detailer ID [id number] [facility] Comment:Test Performed by [employer] 03/29/2011 7:52 EST 03/29/2011 7:55 EST Sajan Stanford MD CHEMISTRY & BLOOD GAS ORDERA BLES Final Result Performing Organization Address [facility] de Phone Number [facility] [address] [place] [address] * (ABNORMAL) GLUCOSE, GLUCOMETER (03/28/2011 21:14 EST) Glucose, Fingerstick 214(H) 70 - 100 mg/dl [facility] Assembly Detailer ID [id number] [facility] Comment:Test Performed by [employer] 03/28/2011 21:1 4 EST 03/28/2011 21:17 EST Sajan Stanford MD CHEMISTRY & BLOOD GAS ORDERA BLES Final Result Performing Organization Address [facility] Phone Number [facility] [address] [place] [address] * (ABNORMAL) GLUCOSE, GLUCOMETER (03/28/2011 17:14 EST) Glucose, Fingerstick 218(H) 70 - 100 mg/dl [facility] Assembly Detailer ID [id number] [facility] Comment:Test Performed by [employer] 03/28/2011 17:1 4 EST 03/28/2011 17:18 EST Sajan Stanford MD CHEMISTRY & BLOOD GAS ORDERA BLES Final Result Performing Organization Address [facility] de Phone Number [facility] [address] [place] [address] * (ABNORMAL) GLUCOSE, GLUCOMETER (03/28/2011 12:16 EST) Glucose, Fingerstick 264(H) 70 - 100 mg/dl [facility] Assembly Detailer ID [id number] [facility] Comment:Test Performed by [employer] 03/28/2011 12:1 6 EST 03/28/2011 12:18 EST Sajan Stanford MD CHEMISTRY & BLOOD GAS ORDERA BLES Final Result Performing Organization Address [facility] Co de Phone Number [facility] [address] [place] [address] * (ABNORMAL) GLUCOSE, GLUCOMETER (03/28/2011 8:15 EST) Glucose, Fingerstick 119(H) 70 - 100 mg/dl [facility] Assembly Detailer ID [id number] [facility] Comment:Test Performed by [employer] 03/28/2011 8:15 EST 03/28/2011 8:53 EST Sajan Stanford MD CHEMISTRY & BLOOD GAS ORDERA BLES Final Result Performing Organization Address [facility] de Phone Number [facility] [address] [place] [address] * (ABNORMAL) GLUCOSE, GLUCOMETER (03/27/2011 21:10 EST) Glucose, Fingerstick 175(H) 70 - 100 mg/dl [facility] Assembly Detailer ID [id number] [facility] Comment:Test Performed by [employer] 03/27/2011 21:1 0 EST 03/27/2011 21:11 EST Sajan Stanford MD CHEMISTRY & BLOOD GAS ORDERA BLES Final Result Performing Organization Address [facility] de Phone Number [facility] [address] [place] [address] * (ABNORMAL) GLUCOSE, GLUCOMETER (03/27/2011 17:11 EST) Glucose, Fingerstick 200(H) 70 - 100 mg/dl [facility] Assembly Detailer ID [id number] [facility] Comment:Test Performed by [employer] 03/27/2011 17:1 1 EST 03/27/2011 17:13 EST Sajan Stanford MD CHEMISTRY & BLOOD GAS ORDERA BLES Final Result Performing Organization Address [facility] Co de Phone Number [facility] [address] [place] [address] * (ABNORMAL) GLUCOSE, GLUCOMETER (03/27/2011 14:46 EST) Glucose, Fingerstick 224(H) 70 - 100 mg/dl [facility] Assembly Detailer ID [id number] [facility] Comment:Test Performed by [employer] 03/27/2011 14:4 6 EST 03/27/2011 14:50 EST Sajan Stanford MD CHEMISTRY & BLOOD GAS ORDERA BLES Final Result Performing Organization Address [facility] de Phone Number [facility] [address] [place] [address] * (ABNORMAL) GLUCOSE, GLUCOMETER (03/27/2011 11:52 EST) Glucose, Fingerstick 227(H) 70 - 100 mg/dl [facility] Assembly Detailer ID [id number] [facility] Comment:Test Performed by [employer] 03/27/2011 11:5 2 EST 03/27/2011 11:56 EST Sajan Stanford MD CHEMISTRY & BLOOD GAS ORDERA BLES Final Result Performing Organization Address [facility] de Phone Number [facility] [address] [place] [address] * (ABNORMAL) GLUCOSE, GLUCOMETER (03/27/2011 8:04 EST) Glucose, Fingerstick 162(H) 70 - 100 mg/dl [facility] Assembly Detailer ID [id number] [facility] Comment:Test Performed by [employer] 03/27/2011 8:04 EST 03/27/2011 8:06 EST Sajan Stanford MD CHEMISTRY & BLOOD GAS ORDERA BLES Final Result Performing Organization Address [facility] de Phone Number [facility] [address] [place] [address] * (ABNORMAL) GLUCOSE, GLUCOMETER (03/27/2011 1:41 EST) Glucose, Fingerstick 194(H) 70 - 100 mg/dl [facility] Assembly Detailer ID [id number] [facility] Comment:Test Performed by [employer] 03/27/2011 1:41 EST 03/27/2011 1:44 EST Sajan Stanford MD CHEMISTRY & BLOOD GAS ORDERA BLES Final Result Performing Organization Address [facility]/ZIP Co de Phone Number [facility] [address] [place] [address] * (ABNORMAL) GLUCOSE, GLUCOMETER (03/26/2011 21:01 EST) Glucose, Fingerstick 259(H) 70 - 100 mg/dl [facility] Assembly Detailer ID [id number] [facility] Comment:Test Performed by [employer] 03/26/2011 21:0 1 EST 03/26/2011 21:03 EST Sajan Stanford MD CHEMISTRY & BLOOD GAS ORDERA BLES Final Result Performing Organization Address [facility] Co de Phone Number [facility] [address] [place] [address] * (ABNORMAL) GLUCOSE, GLUCOMETER (03/26/2011 17:17 EST) Glucose, Fingerstick 160(H) 70 - 100 mg/dl [facility] Assembly Detailer ID [id number] [facility] Comment:Test Performed by [employer] 03/26/2011 17:1 7 EST 03/26/2011 17:18 EST Sajan Stanford MD CHEMISTRY & BLOOD GAS ORDERA BLES Final Result Performing Organization Address City/[facility]/ZIP Co de Phone Number [facility] [address] [place] [address] * (ABNORMAL) GLUCOSE, GLUCOMETER (03/26/2011 12:17 EST) Glucose, Fingerstick 186(H) 70 - 100 mg/dl [facility] Assembly Detailer ID [id number] [facility] Comment:Test Performed by [employer] 03/26/2011 12:1 7 EST 03/26/2011 12:19 EST Sajan Stanford MD CHEMISTRY & BLOOD GAS ORDERA BLES Final Result Performing Organization Address [facility] Co de Phone Number [facility] [address] [place] [address] * (ABNORMAL) GLUCOSE, GLUCOMETER (03/26/2011 8:10 EST) Glucose, Fingerstick 121(H) 70 - 100 mg/dl [facility] Assembly Detailer ID [id number] [facility] Comment:Test Performed by [employer] 03/26/2011 8:10 EST 03/26/2011 8:12 EST Sajan Stanford MD CHEMISTRY & BLOOD GAS ORDERA BLES Final Result Performing Organization Address [facility] de Phone Number [facility] [address] [place] [address] * ECG REPORT - SCANNED (03/26/2011 7:11 EST) 03/26/2011 7:11 EST Narrative Transcriptions [employer], Scan - 03/26/2011 7:11 EST us Scan [employer] PROCEDURE/MINOR SURGICAL ORDE RABLES Final Result * (ABNORMAL) GLUCOSE, GLUCOMETER (03/25/2011 20:52 EST) Glucose, Fingerstick 299(H) 70 - 100 mg/dl [facility] Assembly Detailer ID [id number] [facility] Comment:Test Performed by [employer] 03/25/2011 20:5 2 EST 03/25/2011 20:54 EST Result [facility] Sajan Stanford MD CHEMISTRY & BLOOD GAS ORDERA BLES Final Result Performing Organization Address [facility] Phone Number [facility] [address] [place] [address] * (ABNORMAL) GLUCOSE, GLUCOMETER (03/25/2011 16:53 EST) Glucose, Fingerstick 171(H) 70 - 100 mg/dl [facility] Assembly Detailer ID [id number] [facility] Comment:Test Performed by [employer] 03/25/2011 16:5 3 EST 03/25/2011 16:57 EST Sajan Stanford MD CHEMISTRY & BLOOD GAS ORDERA BLES Final Result Performing Organization Address [facility] de Phone Number [facility] [address] [place] [address] * (ABNORMAL) GLUCOSE, GLUCOMETER (03/25/2011 11:57 EST) Glucose, Fingerstick 240(H) 70 - 100 mg/dl [facility] Assembly Detailer ID [id number] [facility] Comment:Test Performed by [employer] 03/25/2011 11:5 7 EST 03/25/2011 11:59 EST Result [facility] Sajan Stanford MD CHEMISTRY & BLOOD GAS ORDERA BLES Final Result Performing Organization Address [facility] Phone Number [facility] [address] [place] [address] * (ABNORMAL) GLUCOSE, GLUCOMETER (03/25/2011 9:24 EST) Glucose, Fingerstick 153(H) 70 - 100 mg/dl [facility] Assembly Detailer ID [id number] [facility] Comment:Test Performed by [employer] 03/25/2011 9:24 EST 03/25/2011 9:26 EST Sajan Stanford MD CHEMISTRY & BLOOD GAS ORDERA BLES Final Result Performing Organization Address [facility] Co de Phone Number [facility] [address] [place] [address] * (ABNORMAL) GLUCOSE, GLUCOMETER (03/24/2011 20:58 EST) Glucose, Fingerstick 237(H) 70 - 100 mg/dl [facility] Assembly Detailer ID [id number] [facility] Comment:Test Performed by [employer] 03/24/2011 20:5 8 EST 03/24/2011 21:02 EST Sajan Stanford MD CHEMISTRY & BLOOD GAS ORDERA BLES Final Result Performing Organization Address [facility] de Phone Number [facility] [address] [place] [address] * (ABNORMAL) GLUCOSE, GLUCOMETER (03/24/2011 16:52 EST) Glucose, Fingerstick 251(H) 70 - 100 mg/dl [facility] Assembly Detailer ID [id number] [facility] Comment:Test Performed by [employer] 03/24/2011 16:5 2 EST 03/24/2011 16:55 EST Sajan Stanford MD CHEMISTRY & BLOOD GAS ORDERA BLES Final Result Performing Organization Address [facility] de Phone Number [facility] [address] [place] [address] * (ABNORMAL) GLUCOSE, GLUCOMETER (03/24/2011 11:57 EST) Glucose, Fingerstick 236(H) 70 - 100 mg/dl [facility] Assembly Detailer ID [id number] [facility] Comment:Test Performed by [employer] 03/24/2011 11:5 7 EST 03/24/2011 11:59 EST Sajan Stanford MD CHEMISTRY & BLOOD GAS ORDERA BLES Final Result Performing Organization Address [facility] Co de Phone Number [facility] [address] [place] [address] * UA REFLEX (03/24/2011 9:22 EST) UA Billing Microscopic not indicated. [facility] 03/24/2011 9:22 EST 03/24/2011 11:13 EST Jenae Metz MD URINALYSIS ORDERABLES Final Result Performing Organization Address [facility] de Phone Number [facility] [address] [place] [address] * URINALYSIS (03/24/2011 9:22 EST) Color, UA Yellow [facility] Clarity, UA Clear [facility] Glucose, UA Neg Neg [facility] Bilirubin, UA Neg Neg [facility] Ketones, UA Neg Neg [facility] Specific [place], Urine 1.010 1.001 - 1.035 [facility] [...] Final Result Performing Organization Address [facility] Co de Phone Number [facility] [address] [place] [address] * (ABNORMAL) GLUCOSE, GLUCOMETER (03/24/2011 9:07 EST) Glucose, Fingerstick 138(H) 70 - 100 mg/dl [facility] Assembly Detailer ID [id number] [facility] Comment:[facility] 03/24/2011 9:07 EST 03/24/2011 9:09 EST Sajan Stanford MD CHEMISTRY & BLOOD GAS ORDERA BLES Final Result Performing Organization Address [facility] Phone Number [facility] [address] [place] [address] * (ABNORMAL) GLUCOSE, GLUCOMETER (03/23/2011 22:46 EST) Glucose, Fingerstick 170(H) 70 - 100 mg/dl [facility] Assembly Detailer ID [id number] [facility] Comment:Test Performed by [employer] 03/23/2011 22:4 6 EST 03/23/2011 23:01 EST Sajan Stanford MD CHEMISTRY & BLOOD GAS ORDERA BLES Final Result Performing Organization Address [facility] Phone Number [facility] [address] [place] [address] * (ABNORMAL) GLUCOSE, GLUCOMETER (03/23/2011 16:57 EST) Glucose, Fingerstick 260(H) 70 - 100 mg/dl [facility] Assembly Detailer ID [id number] [facility] Comment:Test Performed by [employer] 03/23/2011 16:5 7 EST 03/23/2011 16:58 EST Result [facility] Sajan Stanford MD CHEMISTRY & BLOOD GAS ORDERA BLES Final Result Performing Organization Address [facility] Phone Number [facility] [address] [place] [address] * (ABNORMAL) GLUCOSE, GLUCOMETER (03/23/2011 12:01 EST) Glucose, Fingerstick 228(H) 70 - 100 mg/dl [facility] Assembly Detailer ID [id number] [facility] Comment:Test Performed by [employer] 03/23/2011 12:0 1 EST 03/23/2011 12:06 EST Sajan Stanford MD CHEMISTRY & BLOOD GAS ORDERA BLES Final Result Performing Organization Address [facility] de Phone Number [facility] [address] [place] [address] * (ABNORMAL) GLUCOSE, GLUCOMETER (03/23/2011 8:43 EST) Glucose, Fingerstick 170(H) 70 - 100 mg/dl [facility] Assembly Detailer ID [id number] [facility] Comment:Test Performed by [employer] 03/23/2011 8:43 EST 03/23/2011 8:58 EST Sajan Stanford MD CHEMISTRY & BLOOD GAS ORDERA BLES Final Result Performing Organization Address [facility] de Phone Number [facility] [address] [place] [address] * (ABNORMAL) GLUCOSE, GLUCOMETER (03/22/2011 21:08 EST) Glucose, Fingerstick 294(H) 70 - 100 mg/dl [facility] Assembly Detailer ID [id number] [facility] Comment:Test Performed by [employer] [facility] 03/22/2011 21:0 8 EST 03/22/2011 21:10 EST Result [facility] Sajan Stanford MD CHEMISTRY & BLOOD GAS ORDERA BLES Final Result Performing Organization Address [facility] de Phone Number [facility] [address] [place] [address] * FOLATE (03/22/2011 19:08 EST) Folate 21.6 ng/mL [facility] Comment: Deficient: ??Less than 3.4 ng/mL Indeterminate: ??3.4-5.4 ng/mL Normal: ??Greater than 5.4 ng/mL Blood specimen (specimen) 03/22/2011 19:08 EST 03/22/2011 19:26 EST Jenae Metz MD CHEMISTRY & BLOOD GAS ORDERABLES Final Result Performing Organization Address [facility] Co de Phone Number [facility] [address] [place] [address] * VITAMIN B12 (03/22/2011 19:08 EST) [facility] Vitamin B-12 381 211 - 911 pg/ml [facility] Blood specimen (specimen) 03/22/2011 19:08 EST 03/22/2011 19:26 EST Jenae Metz MD CHEMISTRY & BLOOD GAS ORDERABLES Final Result Performing Organization Address [facility] de Phone Number [facility] [address] [place] [address] * T4 FREE (03/22/2011 19:08 EST) [facility] Free T4 1.5 0.8 - 1.8 ng/dL [facility] Blood specimen (specimen) 03/22/2011 19:08 EST 03/22/2011 19:26 EST Jenae Metz MD CHEMISTRY & BLOOD GAS ORDERABLES Final Result Performing Organization Address [facility] de Phone Number [facility] [address] [place] [address] * HEMAGRAM AND DIFFERENTIAL (03/22/2011 19:08 EST) [facility] WBC 6.60 4.0 - 10.4 K/cmm [facility] [...] O RDERABLES Final Result Performing Organization Address City/[facility] Co de Phone Number [facility] [address] [place] [address] * TSH (03/22/2011 19:08 EST) TSH 0.71 0.35 - 5.00 uIU/ml [facility] Blood specimen (specimen) 03/22/2011 19:08 EST 03/22/2011 19:26 EST us Jenae Metz MD CHEMISTRY & BLOOD GAS ORDERABLES Final Result Performing Organization Address City/[facility] Co de Phone Number [facility] [address] [place] [address] * ALT (03/22/2011 19:08 EST) ALT 61 21 - 72 U/L [facility] Blood specimen (specimen) 03/22/2011 19:08 EST 03/22/2011 19:26 EST us Jenae Metz MD CHEMISTRY & BLOOD GAS ORDERABLES Final Result Performing Organization Address [facility] Co de Phone Number [facility] [address] [place] [address] * (ABNORMAL) AST (03/22/2011 19:08 EST) AST 53(H) 15 - 46 U/L [facility] Blood specimen (specimen) 03/22/2011 19:08 EST 03/22/2011 19:26 EST us Jenae Metz MD CHEMISTRY & BLOOD GAS ORDERABLES Final Result Performing Organization Address [facility] de Phone Number [facility] [address] [place] [address] * ALBUMIN (03/22/2011 19:08 EST) Albumin 4.3 3.4 - 4.9 g/dl [facility] Blood specimen (specimen) 03/22/2011 19:08 EST 03/22/2011 19:26 EST Jenae Metz MD CHEMISTRY & BLOOD GAS ORDERABLES Final Result Performing Organization Address [facility] de Phone Number [facility] [address] [place] [address] * (ABNORMAL) GGT (03/22/2011 19:08 EST) GGT 82(H) 15 - 73 U/L [facility] Blood specimen (specimen) 03/22/2011 19:08 EST 03/22/2011 19:26 EST us Jenae Metz MD CHEMISTRY & BLOOD GAS ORDERABLES Final Result Performing Organization Address [facility] de Phone Number [facility] [address] [place] [address] * ALKALINE PHOSPHATASE (03/22/2011 19:08 EST) Total Alkaline Phosphatase 71 38 - 126 U/L [facility] Blood specimen (specimen) 03/22/2011 19:08 EST 03/22/2011 19:26 EST Jenae Metz MD CHEMISTRY & BLOOD GAS ORDERABLES Final Result Performing Organization Address [facility] de Phone Number [facility] [address] [place] [address] * CREATININE (03/22/2011 19:08 EST) Creatinine 0.80 0.7 - 1.5 mg/dl [facility] GFR, Calculated >60 >60 ml/min/1.7 3m2 [facility] Blood specimen (specimen) 03/22/2011 19:08 EST 03/22/2011 19:26 EST Jenae Metz MD CHEMISTRY & BLOOD GAS ORDERABLES Final Result Performing Organization Address [facility] Phone Number [facility] [address] [place] [address] * BUN (03/22/2011 19:08 EST) BUN 14 10 - 26 mg/dl [facility] Blood specimen (specimen) 03/22/2011 19:08 EST 03/22/2011 19:26 EST Jenae Metz MD CHEMISTRY & BLOOD GAS ORDERABLES Final Result Performing Organization Address [facility] de Phone Number [facility] [address] [place] [address] * (ABNORMAL) ELECTROLYTES (03/22/2011 19:08 EST) Sodium [...] GAS ORDERABLES Final Result Performing Organization Address [facility] de Phone Number [facility] [address] [place] [address] * (ABNORMAL) SCREENING GLUCOSE (03/22/2011 19:08 EST) Glucose, Screening 273(H) 70 - 100 mg/dl [facility] Blood specimen (specimen) 03/22/2011 19:08 EST 03/22/2011 19:26 EST Result [facility] Jenae Metz MD CHEMISTRY & BLOOD GAS ORDERABLES Final Result Performing Organization Address [facility] de Phone Number [facility] [address] [place] [address] * (ABNORMAL) GLUCOSE, GLUCOMETER (03/22/2011 18:07 EST) Glucose, Fingerstick 215(H) 70 - 100 mg/dl [facility] Assembly Detailer ID [id number] [facility] Comment:Test Performed by [facility] 03/22/2011 18:0 7 EST 03/22/2011 18:12 EST Result [facility] Sajan Stanford MD CHEMISTRY & BLOOD GAS ORDERA BLES Final Result Performing Organization Address [facility] Phone Number [facility] [address] [place] [address] documented in this encounter Visit Diagnoses Diagnosis Diabetes mellitus ([facility]) Type II or unspecified type diabetes mellitus without mention of complication, not stated as uncontrolled Major depression Major depressive disorder, single episode, unspecified CAD (coronary artery disease) Coronary atherosclerosis of unspecified type of vessel, [place] or graft documented in this encounter Administered [...] injection 0.5-2 mg 1 11/2010 influenza vaccine [id number] (PF) (FLUZONE) 45 mcg (15 mcg x [...] 05/05/2011 documented in this encounter Care Teams Operations Research Director Relationship Specialty Start Date End Date None, Provider PCP - General 03/22/11 03/23/11 Iggy Sevilla MD [address] [place] [address] PCP - General 03/24/11 12/19/18 documented as of this encounter
--- OUTSIDE RECORDS SUMMARY | 2024-05-24 14:21 | XMS_ITS | Encounter Summary ---
Author Organization [facility] Address [address] [place] [address] Care Team Providers Care Nitro Man Name Role Phone Iggy Sevilla MD Primary Care Provider [phone] Reason for Visit * Reason Onset Date Comments Procedure 04/08/2011 Encounter Details Date Type Department Care Team ([facility] st Contact Info) Description 04/08/2011 Pre-Procedure Orders Encounter [facility] Psychiatric Consultation Program - [address] [address] Juwan Sawant MD [address] [place] [address] [address] [place] [phone] Social History Tobacco Use Types Packs/Day Years [...] on filedocumented in this encounter Care Teams Nitro Man Relationship Specialty Start Date End Date Iggy Sevilla MD [address] [place] [phone] PCP - General 03/24/11 12/19/18 documented as of this encounter
--- OUTSIDE RECORDS SUMMARY | 2024-05-24 14:21 | XMS_ITS | Encounter Summary ---
Author Organization [facility] Address [address] [place] [address] Care Team Providers Care Racker Octave Board Name Role Phone Iggy Sevilla MD Primary Care Provider [phone] Reason for Visit * Reason Onset Date Comments Procedure 04/10/2011 Encounter Details Date Type Department Care Team ([facility] st Contact Info) Description 04/10/2011 Pre-Procedure Orders Encounter [facility] Psychiatric Consultation Program - [address] [address] Juwan Sawant MD [address] [place] [address] [address] [place] [phone] Social History Tobacco Use Types Packs/Day Years [...] on filedocumented in this encounter Care Teams Racker Octave Board Relationship Specialty Start Date End Date Iggy Sevilla MD [address] [place] [phone] PCP - General 03/24/11 12/19/18 documented as of this encounter
--- OUTSIDE RECORDS SUMMARY | 2024-05-24 14:21 | XMS_ITS | Encounter Summary ---
Author Organization [facility] Address [address] [place] [address] Care Team Providers Care Operational Review Sergeant Name Role Phone Iggy Sevilla MD Primary Care Provider [phone] Reason for Visit * Reason Onset Date Comments Procedure 04/29/2011 Encounter Details Date Type Department Care Team (Late st Contact Info) Description 04/29/2011 Pre-Procedure Orders Encounter [facility] Psychiatric Consultation Program - [address] [address] Juwan Sawant MD [address] [place] [address] [address] [place] [phone] Social History Tobacco Use Types Packs/Day Years [...] on filedocumented in this encounter Care Teams Operational Review Sergeant Relationship Specialty Start Date End Date Iggy Sevilla MD [address] [place] [phone] PCP - General 03/24/11 12/19/18 documented as of this encounter
--- OUTSIDE RECORDS SUMMARY | 2024-05-24 14:21 | XMS_ITS | Encounter Summary ---
Author Organization [facility] Address [address] [place] [address] Care Team Providers Care Stapler Hand Name Role Phone Iggy Sevilla MD Primary Care Provider [phone] Reason for Visit * Reason Onset Date Comments Procedure 04/22/2011 Encounter Details Date Type Department Care Team (Late st Contact Info) Description 04/22/2011 Pre-Procedure Orders Encounter [facility] Psychiatric Consultation Program - [address] [address] Juwan Sawant MD [address] [place] [address] [address] [place] [phone] Social History Tobacco Use Types Packs/Day Years [...] on filedocumented in this encounter Care Teams Stapler Hand Relationship Specialty Start Date End Date Iggy Sevilla MD [address] [place] [phone] PCP - General 03/24/11 12/19/18 documented as of this encounter
--- OUTSIDE RECORDS SUMMARY | 2024-05-24 14:22 | XMS_ITS | Encounter Summary ---
Author Organization [facility] Address [address] [place] [address] Care Team Providers Care Rubber Tester Name Role Phone Iggy Sevilla MD Primary Care Provider [phone] Reason for Visit * Reason Onset Date Comments Procedure 04/03/2011 Encounter Details Date Type Department Care Team ([facility] st Contact Info) Description 04/03/2011 Pre-Procedure Orders Encounter [facility] Psychiatric Consultation Program - [address] [address] Juwan Sawant MD [address] [place] [address] [address] [place] [phone] Social History Tobacco Use Types Packs/Day Years [...] filedocumented in this encounter Care Teams Rubber Tester Relationship Specialty Start Date End Date Iggy Sevilla MD [address] [place] [phone] PCP - General 03/24/11 12/19/18 documented as of this encounter
--- OUTSIDE RECORDS SUMMARY | 2024-05-24 14:22 | XMS_ITS | Encounter Summary ---
Author Organization [facility] Gena spears [place] [id number] Care Team Providers Care Electrocardiograph Technician Name Role Phone Ralph Bright Primary Care Provider + Reason for Visit * Auth/Cert (Routine) Specialty Diagnoses / Procedures Referred By Contac t Referred To Contact Diagnoses Ventricular tachycardia Defibrillator discharge Procedures CHICHI IPI Jero Eric MD [facility] [place] [address] [facility] Referral ID Status Reason Start Date Expiration Date Visits Re quested Visits Authorized [id number] 1 1 Encounter Details Date Type Department Care Team (Late st Contact Info) Description 05/09/2024 10:31 PM EST - 05/14/2024 4:34 PM EST Hospital Encounter Heart and Vascular Unit Level 4 Wing B at [place] [id number] Bony Corcoran MD [facility] [place] [address] Robson Espinoza MD [facility] [place] [address] Gordon Lynn MD [facility] [place] [address] Jero Eric MD [facility] [place] [address] Ventricular tachycardia; Elevated troponin; Longstanding persistent atrial fibrillation; Persistent atrial fibrillation Discharge Disposition: Home Social History Tobacco Use Types Packs/Day Years Used Date Smoking Tobacco: Every Day e-Cigarettes Smokeless Tobacco: Never Comments:using e cigarettes Alcohol Use Standard Drinks/Week Comments No 0 (1 standard drink = 0.6 oz pur e alcohol) [facility] Utilities Answer Date Recorded In the past 12 months has e [email or web address], gas, oil, or water [employer] threatened to shut off services in your home? No 05/10/2024 Hunger Vital Sign Answer Date Recorded Within the past 12 months, y ou worried that your food would run out before you got the money to buy more. Never true 05/10/19 25 Within the past 12 months, t he food you bought just didn't last and you didn't have money to get more. Never true 05/10/2024 PRAPARE - Transportation Answer Date Re corded In the past 12 months, has l ack of transportation kept you from medical appointments or from getting medications? No 04/21 In the past 12 months, has l ack of transportation kept you from meetings, work, or from getting things needed for daily living? No 05/10/2024 Housing Stability Vital Sign Answer Dmitri e Recorded In the last 12 months, was t here a time when you were not able to pay the mortgage or rent on time? No 05/10/2024 In the past 12 months, how m any times have you moved where you were living? 0 05/10/2024 At any time in the past [address] [facility], were you homeless or living in a long-term (including now)? No 05/10/2024 IPV Inpatient Questions Answer Date Recorded Does Anyone Try to Keep You From Having Contact with Others or Doing Things Outside Your Home? no 05/09/2024 Feels Threatened by Someone no 04/21 Feels Unsafe at Home or Work/School no 05/09/2024 Physical Signs of Abuse Present no 05/09/2024 Sex and Gender Information Value Date Recorded Sex Assigned at Not on file Gender Identity Not on file Sexual Orientation Not on file documented as of this encounter Last Filed Vital Signs Vital Sign Reading Time Taken Comments Blood Pressure 134/73 05/14/2024 11:43 AM EST Pulse 69 05/14/2024 11:43 AM EST Temperature 36.6 ??C (97.9 ??F) 05/14/2024 1 1:43 AM EST Respiratory Rate 16 05/14/2024 11:4 3 AM EST Oxygen Saturation 98% 05/14/2024 11: 43 AM EST Inhaled Oxygen Concentration - - Weight 82.9 kg (182 lb 12.8 oz) 05/12/2024 5:04 AM EST Height 185.4 cm (6' 1) 05/09/2024 10:4 6 PM EST Body Mass Index 24.12 05/09/2024 10:46 PM EST documented in this encounter Discharge Summaries * Gordon Lynn MD - 05/14/2024 4:34 PM EST Images from the original note were not included. Discharge Summary Patient Name: Shahnaz Santiago Patient Age: 73 y.o. Language: Greenlandic Race: White Ethnicity: Not nor Admit date: 05/09/2024 Discharge date and time: 05/14/2024 Attending Physician: Gordon Lynn MD Discharge Physician: Gordon Lynn MD Follow-up Recommendations for Providers: #Outpatient VT episode with successful ICD discharge #Recurrent slow VT #Recurrence of Afib s/p successful DCCV -EP consulted inpatient -Oral Amiodarone dose increased to 400mg daily -Continue Metoprolol succinate 100mg daily -Continue home Xarelto (denies missed doses within past 6 weeks) -S/p successful cardioversion to NSR 05/11/2024 -Patient to follow-up with EP outpatient -PCP please check BMP, mag, CBC -Repeat LFTs in 3 months. -Continue monitoring TSH yearly -Ophthalmic exam yearly #Ischemic Cardiomyopathy LVEF 47% #No clinical evidence of HF #HLD -Continue Metoprolol as above -Continue home lisinopril 2.5mg daily -Consider further GDMT uptitration outpatient -Continue atorvastatin 20mg daily #T2DM -A1c 8.6 -PCP please review anti-glycemic regimen and adjust accordingly (given elevated A1c) Inpatient Provider Contact Information: Gordon Lynn MD For questions regarding this document or issues relating to this hospitalization on the Medical Service, please contact your inpatient physician through the [facility] Medical Technologist Prn . Issues afterhours and on weekends will be handled by the Hospitalist staff on-call. Discharge Diagnoses (Hospital Problems) and Secondary Diagnoses (Chronic Problems): Active Hospital Problems Diagnosis Ventricular tachycardia Resolved Hospital Problems No resolved problems to display. Active Non-Hospital Problems Diagnosis ASCVD (arteriosclerotic cardiovascular disease) Atrial fibrillation Chronic pain Diverticular disease Dysphagia Magnesium deficiency Obstructive sleep apnea syndrome Rib pain on right side Pain in right wrist Closed fracture of lower end of right radius with routine healing Contusion of left knee Typical atrial flutter Atrial pacemaker lead displacement ICD (implantable cardioverter-defibrillator), dual, in situ Hypertension Hypomagnesemia Sustained VT (ventricular tachycardia) Depression Dermatitis Irritant contact dermatitis T2DM (type 2 diabetes mellitus) Gastroesophageal reflux disease IBS (irritable bowel syndrome) Coronary atherosclerosis Nephrolithiasis Diabetes mellitus HTN (hypertension) Elevated cholesterol Operations/Major Procedures: TTE 05/10/2024: Interpretation Summary 1. Milldy increased left ventriclar wall thickness, normal chamber size and mildly reduced systolic function with beat to beat variability. The left ventricular ejection fraction is 47% by Paz's biplane. Hypokinesis of the inferior wall. Also, abnormal septal motion associated with pacemaker activity. 2. Normal right ventricular size and systolic function. There is a CIED lead in the right ventricle. 3. Mild mitral regurgitation. Trace aortic regurgitation. Compared to 11/06/2016: No major changes, EF remains in the same range. External Cardioversion 05/11/2024 Physician: Jonny ANGEL, FRANK HAND MD Indication: Atrial fibrillation Procedure: The patient was brought to the procedure room in the fasting state with an intravenous line in place. After answering all of the patient's questions and assuring informed consent, and withthe anesthesiology service assisting with sedation and airway management, the patient transiently was anesthetized. A 200 joule synchronized biphasic cardioversion was performed with a left parasternal anterior patch and left paraspinal posterior patch, reverting the patient to sinus rhythm at 66 bpm with occasional APCs. A total of 1 shock(s) was/were delivered. The patient subsequently awoke with no memory of the cardioversion, and there were no apparent complications. A follow up 12-lead ECG was obtained. The ICD was interrogated prior to and after the cardioversion - there was normal device function History of Presentation: Per original H&P by Dr. Eric: HPI Mr. Shahnaz Santiago is a 73-year-old gentleman from [facility] who has an ischemiccardiomyopathy (LVEF 49% with global LV systolic dysfunction per echo 11/06/2016), followed in the EP clinic for persistent atrial fibrillation as well as ventricular tachycardia. Previous DCCV for persistent A- fib October 2020 chronically anticoagulated with Xarelto, status post dual-chamber [employer] ICD 01/10/2014 complicated by atrial lead dislodgment requiring lead revision 04/17/2014, with both successful and unsuccessful ATP in the past. ICD was reprogrammed in November 2020 after he isfound to be in and out of VT at a rate lower than his programmed detection rate. Patient was subsequently started on amiodarone. Coronary artery disease diagnosed 2007 by left heart catheterization [facility] with PCI to unspecified vessel subsequent cardiac catheterization 2008 with stents to LAD and circumflex and subsequent cardiac cath [facility] 05/13/2013 after an abnormal pharmacologic stress test at [facility] showed LVEF 45% with partially reversible inferior defect. Leftheart cath 05/13/2013 showed normal left main mild diffuse disease throughout LAD with 80% mid stenosis representing restenosis lesion, mild diffuse disease proximal obtuse marginal branch and mild diffuse disease throughout the right coronary artery, status post 3 drug-eluting stents to 80% mid LAD. Subsequent left heart cath done at [facility] January 06, 2014 again showing normal left main hazy 50% mid LAD stenosis mild diffuse disease throughout the circumflex moderate diffuse disease proximal RCA with totally occluded distal RCA with brisk flow via bridging collaterals. Patient now presents to the emergency department [facility] on 05/09/2024 with reports of his defibrillator firing. He has been not feeling well for last few days with generalized malaise and fatigue no actual chest tightness with some mild exertional dyspnea. He has had some vague feelings of abdominal discomfort over the last several days and has been constipated for the past week. Is also noted systolic blood pressures a bit on the low side in the low 100s and has noticed heart monitor shown that he is in atrial fibrillation. Patient reportedly has been compliant with his amiodarone therapy and his Xarelto. His AICD pacemaker was interrogated at the outside hospital since his AICD was last reset fibber 2023 he had a total of 17 ventricular episodes no V-fib he had 16 episodes of nonsustained ventricular tachycardia 1 ventricular tachycardia resolved and shocked and delivered which was 100% successful. 2 ATP has been delivered with no success.. She is had atrial pacing 11% time ventricular pacing 1% of the time. In May 09, 2024 at 1418 showed ATR at 225 bpm and at 1416 1 episode of ventricular tachycardia and 144 bpm with successful delivery of a shock. Evaluation of the outside hospital included an EKG showed atrial fibrillation rate of 90 bpm with nonspecific intraventricular conduction block, left anterior fascicular block, old inferior infarct and occasional PVCs but no acute ST elevations. Troponin I levels were 6 and 8 respectively both within normal limits. proBNP was normal at 130. CBC was unremarkable. Electrolytes showed normal potassium 4.4 magnesium was low at 1.5 creatinine normal at 1.2 and BUN was normal at 19 transaminases wereupper normal to minimally elevated with an AST of 43 and ALT of 65. With a normal total bilirubin 0.51 and alkaline phosphatase that was normal at 83. [facility] requested transfer as they did not have any echocardiography availability or cardiology consultation availability. Furthermore they had no in-house EP service. Dr. Espinoza took the phone call from [facility] cardiology and recommended transfer for evaluation by our EP service. 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 In the past there has been some concern about hepatotoxicity from his amiodarone has been followed by [facility] GI service there appears that his transaminases have been relatively stable recently. Currently patient denies any shortness of breath or chest pain but does note constipation feeling of abdominal bloating. Patient be kept n.p.o. for possible cardioversion and TTE. Dr. Espinoza did recommend nuclear stress test to rule out new ischemic heart disease. Hospital Course: Following admission, Electrophysiology was consulted and ICD interrogation revealed onset of Afib/flutter (atypical) along with episode of slow mmVT with HR ~140 (succesfully treated with 0.9 joules after 10 rounds of ATP failed to convert the rhythm). The ICD was thought to be operating appropriately and no changes to programming were made. On 05/12/24 the patient developed slow, monomorphic VT, remaining HD stable while supine with appropriate mentation. Amiodarone bolus was initiated with conversion to NSR. The patient was continued on Amiodarone gtt and monitored for an additional 48 hours, remaining electrically silent without return of VT. He was transitioned to higher dose PO amiodarone (400mg daily) and discharged. Ischemic evaluation was deferred per EP recommendation. Vital Signs at Discharge: BP: 134/73, Heart Rate: 69, Temp: 36.6 ??C (97.9 ??F), Resp: 16, BMI (Calculated): 24.8 Height: 185.4 cm (6' 1) (05/09/24 2246) Weight: 82.9 kg (182 lb 12.8 oz) (05/12/24 0504) Functional and Cognitive Status: Good, baseline Important Studies and Lab Data: Labs: Last wbc, hgb, hct plt No results for input(s): WBC, HGB, HCT in the last 72 hours. Invalid input(s): PLATELETT Last 3 wbc, hgb, hct plt Recent Labs 05/14/24 0221 05/13/24 0400 05/12/24 0319 WBC 7.96 7.81 6.92 HGB 13.4* 13.9 14.3 HCT 39.7* 41.9 42.3 PLATELET 212 200 195 Last 3 Lytes Recent Labs 05/14/24 0221 05/13/24 0400 05/12/24 1555 NA 137 138 133* K 4.1 4.9 4.3 CL 101 103 98 CO2 24 21* 20* BUN 19 19 21* CREATININE 1.02 0.96 1.08 Last 3 LFTs Recent Labs 05/10/24 0021 AST 40* ALT 42 ALKPHOS 61 BILITOT 0.3 Last 3 ProBNP, Trop, CK No results for input(s): CK, TROPONINT, PROBNP in the last 168 hours. Last 3 TFT Recent Labs 05/10/24 0021 TSH 0.63 Last 3 Lipids No results for input(s): CHLPL, HDL, LDLCHOL, LDLDIRECT, TRIG in the last 7068 hours. Last 3 HgbA1C Recent Labs 05/10/24 0020 HA1C 8.6* Pending Studies and Lab Data: PCP please attain labwork as above Discharge Conditions/Prognosis: good Discharge to: home Updated Allergies/ADRs: Allergies Allergen Reactions Latex Other reaction(s): trouble breathing/moving Adhesive Tape Rash tegaderm ok Use paper tape Other reaction(s): rash Immunizations Given this Hospitalization: There is no immunization history on file for this patient. Discharge Medications: Your Medications Continued medications with new dosing Dose Details AMIOdarone 200 mg tablet Commonly known as: Pacerone Take 2 tablets by mouth daily. What changed: medication strength how much to take Another medication with the same name was removed. Continue taking this medication, and follow the directions you see here. 400 mg Quantity: 60 tablet Refills: 3 lamoTRIgine 200 mg tablet Commonly known as: LaMICtal 200 mg daily. What changed: Another medication with the same name was removed. Continue taking this medication, and follow the directions you see here. 200 mg Refills: 0 Continued medications, unchanged Dose Details atorvastatin 20 mg tablet Commonly known as: Lipitor Take 1 tablet by mouth daily. 20 mg Quantity: 90 tablet Refills: 3 cholecalciferol (Vitamin D3) 50 mcg (2,000 unit) Capsule take 1 capsule by mouth daily Generic drug: cholecalciferol (Vitamin D3) Refills: 0 empagliflozin 10 mg tablet Commonly known as: Jardiance Take 10 mg by mouth daily. 10 mg Refills: 0 freestyle lite strips TEST THREE TIMES DAILY Generic drug: blood sugar diagnostic strips Refills: 0 gabapentin 300 mg capsule Commonly known as: Neurontin Take 300 mg by mouth daily. 300 mg Refills: 0 glipiZIDE XL 10 mg ER 24 hr tablet Commonly known as: Glucotrol XL Take 10 mg by mouth daily. 10 mg Refills: 0 LANCETS MISC by Misc.(Non-Drug; Combo Route) route. Refills: 0 lisinopriL 2.5 mg tablet Commonly known as: Zestril Take 1 tablet by mouth daily. 2.5 mg Quantity: 90 tablet Refills: 0 magnesium chloride 64 mg magnesium Tablet Take 1 tablet by mouth 3 times daily. 1 tablet Refills: 0 metFORMIN 1,000 mg tablet Commonly known as: Glucophage Take 1,000 mg by mouth 2 times daily (with meals). 1,000 mg Refills: 0 metoprolol succinate XL 100 mg ER 24 hr tablet Commonly known as: Toprol-XL Take 100 mg by mouth daily. 100 mg Refills: 0 multivitamin Capsule Take 1 capsule by mouth daily. 1 capsule Refills: 0 nitroGLYcerin 0.4 mg sublingual tablet Commonly known as: Nitrostat Place 0.4 mg under the tongue every 5 minutes as needed. Reported on 09/30/2016 0.4 mg Refills: 0 pantoprazole EC [address] tablet Commonly known as: Protonix Take 40 mg by mouth daily. 40 mg Refills: 0 rivaroxaban 20 mg tablet Commonly known as: Xarelto Take 1 tablet by mouth daily. 20 mg Quantity: 30 tablet Refills: 11 semaglutide 0.25 mg or 0.5 mg(2 mg/1.5 mL) Pen Injector Commonly known as: Ozempic Inject 0.25 mg subcutaneously once a week. 0.25 mg Refills: 0 traMADoL 50 mg tablet Commonly known as: Ultram Take 50 mg by mouth daily as needed for Pain. 50 mg Refills: 0 zolpidem 10 mg tablet Commonly known as: Ambien Take 5 mg by mouth nightly as needed. 5 mg Refills: 0 STOPPED Medications aspirin EC 81 mg EC (DR) tablet BD Ultra-Fine Mini Pen Needle 31 gauge x 3/16 Needle Generic drug: insulin needles (disposable) cyanocobalamin (Vitamin B-12) 1,000 mcg tablet Commonly known as: Vitamin B-12 ferrous sulfate 324 mg (65 mg iron) DR tablet Commonly known as: FeroSul KlonoPIN 1 mg tablet Generic drug: clonazePAM liraglutide 0.6 mg/0.1 mL (18 mg/3 mL) Pen Injector Commonly known as: VICTOZA MAGNESIUM CARBONATE ORAL tacrolimus 0.1 % Ointment Commonly known as: Protopic Trintellix 5 mg tablet Generic drug: vortioxetine Smoking Status at Discharge: Social History Tobacco Use Smoking Status Every Day Types: e-Cigarettes Smokeless Tobacco Never Tobacco Comments using e cigarettes Instructions Given to Patient at Discharge: Patient Instructions Patient Instructions on Discharge to Home Why you were hospitalized - You presented to the hospital after your ICD shocked you. In the hospital our electrophysiology team (EP) evaluated you and found that you've recently had episodes of Ventricular Tachycardia (VT). You were started on IV Amiodarone after you went into VT during your stay and were monitored for 48 hours without recurrence. You are now being discharged on higher dose Amiodarone to help prevent future episodes of VT. If you develop loss of consciousness, chest pain, difficulty breathing or other serious concerns please call 911. Follow up Appointments: PCP: Please call to set up an appointment within 7-10 days for a hospital follow-up - MAXIMO Mcbride @ [phone] Clinical Education Consultant: Please call Dr. Russ's office to confirm your upcoming appointment. Your Inpatient Medical Team at [facility] Name(s) of your inpatient provider(s): Gordon Lynn MD For questions regarding issues relating to your hospitalization on the Hospital Medicine Service, please contact your inpatient physician through the [facility] Medical Technologist Prn [phone]. Issues after hours and on weekends will be handled by the Hospitalist staff on-call. Your Primary Care Provider MAXIMO Mcbride [phone] General Instructions None Discharge References/Attachments Ventricular Tachycardia: General Info (Greenlandic) documented in this encounter Discharge Instructions * Patient Instructions* Gordon Lynn MD - 05/14/2024 2:15 PM EST Patient Instructions on Discharge to Home Why you were hospitalized - You presented to the hospital after your ICD shocked you. In the hospital our electrophysiology team (EP) evaluated you and found that you've recently had episodes of Ventricular Tachycardia (VT). You were started on IV Amiodarone after you went into VT during your stay and were monitored for 48 hours without recurrence. You are now being discharged on higher dose Amiodarone to help prevent future episodes of VT. If you develop loss of consciousness, chest pain, difficulty breathing or other serious concerns please call 911. Follow up Appointments: PCP: Please call to set up an appointment within 7-10 days for a hospital follow-up - MAXIMO Mcbride @ [phone] Clinical Education Consultant: Please call Dr. Russ's office to confirm your upcoming appointment. Your Inpatient Medical Team at [facility] Name(s) of your inpatient provider(s): Gordon Lynn MD For questions regarding issues relating to your hospitalization on the Hospital Medicine Service, please contact your inpatient physician through the [facility] Medical Technologist Prn [phone]. Issues after hours and on weekends will be handled by the Hospitalist staff on-call. Your Primary Care Provider AMXIMO Mcbride [phone] * Attachments The following attachments cannot be sent through Care Everywhere. * Ventricular Tachycardia: General Info (Greenlandic) documented in this encounter Medications at Time of Discharge Medication Sig Dispensed Refills Start Date End Date magnesium chloride 64 mg magnesium Tablet Take 1 tablet by mouth 3 times daily. glipiZIDE XL (Glucotrol XL) 10 mg ER 24 hr tablet Take 10 mg by mouth daily. 04/26/2024 semaglutide (Ozempic) 0.25 mg or 0.5 mg(2 mg/1.5 mL) Pen Injector Inject 0.25 mg subcutaneously once a week. 04/27/2024 gabapentin (Neurontin) 300 mg capsule Take 300 mg by mouth daily. lisinopriL (Zestril) 2.5 mg Tablet Take 1 tablet by mouth daily. 90 tablet 03/18/2022 atorvastatin (Lipitor) 20 mg Tablet Take 1 tablet by mouth daily. 90 tablet 3 12/12/2020 metoprolol succinate (TOPROL-XL) 100 mg Tablet Sustained Release 24 hr Take 100 mg by mouth daily. FREESTYLE LITE STRIPS TEST THREE TIMES DAILY 0 9 CHOLECALCIFEROL, VITAMIN D3, 2,000 unit Capsule take 1 capsule by mouth daily 0 07/29/2018 lamoTRIgine (LAMICTAL) 200 mg Tablet 200 mg daily. 0 08/29/2018 rivaroxaban (XARELTO) 20 mg Tablet Take 1 tablet by mouth daily. 30 tablet 11 03/04/2017 pantoprazole (PROTONIX) 40 mg Tablet, Delayed Release (E.C.) Take 40 mg by mouth daily. zolpidem (AMBIEN) 10 mg Tablet Take 5 mg by mouth nightly as needed. multivitamin capsule Take 1 capsule by mouth daily. LANCETS MISC by Misc.(Non-Drug; Combo Route) route. metformin (GLUCOPHAGE) 1,000 mg tablet Take 1,000 mg by mouth 2 times daily (with meals). AMIOdarone (Pacerone) 200 mg tablet Take 2 tablets by mouth daily. 60 tablet 3 05/14/2024 empagliflozin (Jardiance) 10 mg tablet Take 10 mg by mouth daily. traMADol (ULTRAM) 50 mg Tablet Take 50 mg by mouth daily as needed for Pain. nitroGLYcerin (NITROSTAT) 0.[address] 0.4 mg under the tongue every 5 minutes as needed. Reported on 09/30/2016 documented as of this encounter Progress Notes * Adis Berman RN - 05/14/2024 4:10 PM EST Discharge orders written, patient understands instructions and follow up visits, patient discharge to home with . * Gordon Lynn MD - 05/13/2024 11:24 AM EST Inpatient Cardiology Progress Note Patient Name: Shahnaz Santiago Service: CV2 Responsible Attending: Gordon Lynn MD Reason for continued hospitalization: Evaluation and management of arrhythmia / atrial fibrillation Active Problems: Active Hospital Problems Diagnosis Ventricular tachycardia Resolved Hospital Problems No resolved problems to display. Interval History: -NAEON -Amiodarone infusion continued without recurrence of VT since initiation -Hyperglycemia to 500s this morning. Per discussion patient consumed a muffin brought by family member. I requested he refrain from consuming food not provided and he was agreeable. Meds: Scheduled Meds: [START ON 05/14/2024] lamoTRIgine 200 mg Oral Daily [START ON 05/14/2024] insulin glargine (Lantus;Semglee) (100 unit/mL) subcutaneous injection 10 Units Subcutaneous Daily insulin lispro 0-8 Units Subcutaneous 4 Times Daily AC & HS insulin lispro 1-6 Units Subcutaneous Q4H JULIET sodium chloride 0.9 % (flush) 5 mL Intravenous BID sodium chloride 0.9 % (flush) 5 mL Intravenous BID atorvastatin 20 mg Oral Daily cholecalciferoL 400 Units Oral Daily lisinopriL 2.5 mg Oral Daily pantoprazole EC 40 mg Oral Daily rivaroxaban 20 mg Oral Daily metoproloL tartrate 25 mg Oral Q6H JULIET gabapentin 300 mg Oral Daily psyllium husk 1 packet Oral BID magnesium oxide 400 mg Oral BID Continuous Infusions: AMIOdarone 0.5 mg/min (05/13/242031) PRN Meds:LORazepam, simethicone, polyethylene glycoL (MIRALAX) oral powder, sodium chloride 0.9 % (flush), lidocaine, traMADoL, zolpidem, bisacodyL, lactulose, glucose 40% oral geL OR dextrose OR glucagon, sodium chloride 0.9 % (flush) Physical Exam: Vital Signs: Last value Range last 24 hrs Temperature Temp: 36.4 ??C (97.6 ??F) Temp: [36.3 ??C (97.4 ??F)-36.6 ??C (97.9 ??F)] Heart Rate Heart Rate: 61 Heart Rate: [60-68] Blood Pressure BP: (!) 146/91 BP: (105-146)/(58-91) Respiratory Rate Resp: 16 Resp: [14-18] SpO2 SpO2: 98 % SpO2: [95 %-100 %] Physical Exam Constitutional: General: He is not in acute distress. Appearance: Normal appearance. He is obese. He is not ill-appearing or toxic-appearing. HENT: Head: Normocephalic and atraumatic. Eyes: General: No scleral icterus. Conjunctiva/sclera: Conjunctivae normal. Cardiovascular: Rate and Rhythm: Normal rate and regular rhythm. Pulmonary: Effort: No respiratory distress. Breath sounds: No wheezing or rales. Abdominal: General: Abdomen is flat. Bowel sounds are normal. There is no distension. Tenderness: There is no abdominal tenderness. Musculoskeletal: Right lower leg: No edema. Left lower leg: No edema. Skin: General: Skin is warm. Capillary Refill: Capillary refill takes less than 2 seconds. Neurological: General: No focal deficit present. Mental Status: He is alert. Mental status is at baseline. Lab Comments: Recent Labs 05/13/24 0400 05/12/24 0319 05/11/24 0836 WBC 7.81 6.92 9.51* HGB 13.9 14.3 15.9 HCT 41.9 42.3 46.9 PLATELET 200 195 224 Recent Labs 05/10/24 0021 INR 1.4 Recent Labs 05/13/24 0400 05/12/24 1555 05/12/24 0319 NA 138 133* 138 K 4.9 4.3 4.5 CL 103 98 101 CO2 21* 20* 25 BUN 19 21* 23* CREATININE 0.96 1.08 1.15 Recent Labs 05/10/24 0021 AST 40* ALT 42 ALKPHOS 61 BILITOT 0.3 Recent Labs 05/13/24 0400 05/12/24 1555 05/12/24 0319 05/11/24 0836 05/10/24 0021 CALCIUM 9.0 8.9 9.3 < > 9.2 MAGNESIUM 0.85 0.77 0.80 < > 0.83 PHOS -- -- -- -- 2.9 < > = values in this interval not displayed. Recent Labs 05/10/24 0356 05/10/24 0117 05/10/24 0021 TROPONINTHS 15 13 13 Pertinent Radiographic/Diagnostic Results: TTE 05/11/24: Interpretation Summary 1. Milldy increased left ventriclar wall thickness, normal chamber size and mildly reduced systolic function with beat to beat variability. The left ventricular ejection fraction is 47% by Paz's biplane. Hypokinesis of the inferior wall. Also, abnormal septal motion associated with pacemaker activity. 2. Normal right ventricular size and systolic function. There is a CIED lead in the right ventricle. 3. Mild mitral regurgitation. Trace aortic regurgitation. Compared to 11/06/2016: No major changes, EF remains in the same range. Assessment: Mr. Santiago is a 73 yr old male w/ complex cardiac hx of persistent atrial fibrillationw/ prior DCC, and multiple episodes of VT w/ palcement of AICD/pacer in the past who presented after AICD firing for VT with recurrence of afib now s/p cardioversion. Plan: #Outpatient VT episode with successful ICD discharge #Recurrent slow VT #Recurrence of Afib s/p successful DCCV -EP consulted appreciate recs -Slow VT episode 05/12, resolved following Amio bolus -Continue Amiodarone gtt -Metoprolol Tartrate 25mg q6h -Continue home Xarelto (denies missed doses within past 6 weeks) -S/p successful cardioversion to NSR 05/11 -Goal >48hrs w/out recurrent VT #Ischemic Cardiomyopathy LVEF 47% #No clinical evidence of HF #HLD -Continue Metoprolol as above -Continue home lisinopril 2.5mg daily -Consider further GDMT uptitration outpatient -Continue atorvastatin 20mg daily #Depression #Anxiety -Continue home lamictal -Clarify duloxetine use/dose with pt pharmacy -Ativan 0.5mg daily PRN for anxiety (avoid hydralazine iso VT) #T2DM -Increase lantus to 15U daily -Continue prandial insulin -Increase to resistant SSI q4h -A1c 8.6 Code Status: Full Code Gordon Lynn MD 05/13/2024 * Frank Hand MD - 05/12/2024 4:41 PM EST Images from the original note were not included. Inpatient Cardiac Electrophysiology Progress Note Patient Name: Shahnaz Santiago Service: EP Responsible Attending: Gordon Lynn MD Reason for continued hospitalization: Ventricular tachycardia; amiodarone loading Active Problems: Active Hospital Problems Diagnosis Ventricular tachycardia Resolved Hospital Problems No resolved problems to display. Interval History: 73yo man with hx of VT, admitted for VT with failed ATP, converted with one shock. Increased oral amiodarone from 100mg to 200mg. Resting in bedside chair, initially unaware of onsetof recurrent VT, staff came into room after noting WCT on telemetry. He then began to feel some lightheadedness. ICD detection programmed @ 140bpm - this episode was below detection at 133bpm. Devicedid not log event. WCT confirmed on telemetry (05/12/2024 1415) initiated with PVC. He underwent DC cardioversion for Afib on 05/11/2024 and remains in an atrial paced rhythm. Meds: Scheduled Meds: [START ON 05/13/2024] insulin glargine (Lantus;Semglee) (100 unit/mL) subcutaneous injection 8 UnitsSubcutaneous Daily insulin lispro 1-6 Units Subcutaneous Q4H JULIET sodium chloride 0.9 % (flush) 5 mL Intravenous BID sodium chloride 0.9 % (flush) 5 mL Intravenous BID insulin lispro 0-8 Units Subcutaneous TID WC atorvastatin 20 mg Oral Daily cholecalciferoL 400 Units Oral Daily lisinopriL 2.5 mg Oral Daily pantoprazole EC 40 mg Oral Daily rivaroxaban 20 mg Oral Daily metoproloL tartrate 25 mg Oral Q6H JULIET gabapentin 300 mg Oral Daily lamoTRIgine 200 mg Oral Daily psyllium husk 1 packet Oral BID magnesium oxide 400 mg Oral BID Continuous Infusions: AMIOdarone 1 mg/min (05/12/24 1432) Followed by AMIOdarone PRN Meds:polyethylene glycoL (MIRALAX) oral powder, sodium chloride 0.9 % (flush), lidocaine, traMADoL, zolpidem, bisacodyL, lactulose, glucose 40% oral geL OR dextrose OR glucagon, sodium chloride 0.9 % (flush) Physical Exam: Vital Signs: Last value Range last 12 hrs Temperature Temp: 36.7 ??C (98 ??F) Temp: [36.7 ??C (98 ??F)-36.9 ??C (98.4 ??F)] Heart Rate Heart Rate: 60 Heart Rate: [60-135] Blood Pressure BP: 105/56 BP: (99-127)/(56-90) Respiratory Rate Resp: 17 Resp: [17-18] SpO2 SpO2: 99 % SpO2: [94 %-99 %] Physical Exam Vitals and nursing note reviewed. Constitutional: Appearance: Normal appearance. Cardiovascular: Rate and Rhythm: Normal rate and regular rhythm. Pulses: Normal pulses. Pulmonary: Effort: Pulmonary effort is normal. Breath sounds: Normal breath sounds. Skin: General: Skin is warm and dry. Neurological: General: No focal deficit present. Mental Status: He is alert and oriented to person, place, and time. Lab Comments: Recent Labs 05/12/2431805/11/24 0836 05/10/24 0020 WBC 6.92 9.51* 7.51 HGB 14.3 15.9 14.9 HCT 42.3 46.9 45.8 PLATELET 195 224 216 Recent Labs 05/10/24 0021 INR 1.4 Recent Labs 05/12/24 0319 05/11/24 0836 05/10/24 0021 NA 138 138 140 K 4.5 4.0 4.6 CL 101 102 105 CO2 BUN 23* 22* 18 CREATININE 1.15 1.05 0.92 Recent Labs 05/10/24 0021 AST 40* ALT 42 ALKPHOS 61 BILITOT 0.3 Recent Labs 05/12/24 0319 05/11/24 0836 05/10/24 0021 CALCIUM 9.3 9.3 9.2 MAGNESIUM 0.80 0.77 0.83 PHOS -- -- 2.9 Recent Labs 05/10/24 0356 05/10/24 0117 05/10/24 0021 TROPONINTHS 15 13 13 Pertinent Radiographic/Diagnostic Results: Device Data: Atrial electrode(New): [employer] Dextrus Model# 4126-53 cm Serial# [id number], implanted 04/17/2014 Bipolar, steroid-tipped, active-fixation IS-1 lead Access: Axillary vein Location Right atrial appendage Old Ventricular electrode: [place] [employer] [place] Model# 0292 Serial# [id number] Bipolar, steroid-tipped, active-fixation DF-4 lead Access: Axillary vein Location: Right ventricular apex Implanted: 01/10/2014 Pulse generator: [place] Model# E162 Serial# [id number] DDDR ICD Location: Subcutaneous Pacing Mode: DDDR 60/130/130 Tachy settings: VF 220 bpm; ATP, 31j, 41j x 7 VT 180 bpm; Scan, 31j, 41j x 5 VT-1 140 bpm; Scan, RampScan, 0.9j, 11j, 41j x 3 Underlying atrial paced rhythm AP 60%; 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 male admitted for MMVT with unsuccessful ATP(x10) and successful 0.9J shock. Amiodarone uptitrated however today he had a recurrent episode of VT at slower rate(133bpm) - no therapy delivered. Mildly symptomatic. Spontaneously converted. Plan: Amiodarone infusion started. Device reprogrammed as above. Would defer stress test planned for tomorrow. Target >48hrs without recurrent VT. Provider: MAXIMO Leija EP Consult attending physician: Jose Hand MD Addendum I personally reviewed the data, saw the patient. Maintaining sinus/atrial paced rhythm after his cardioversion, but developed slow VT today that wasreasonably well tolerated. Device has been reprogrammed to provide ATP in a slower VT zone. Amiodarone iv bolus - would continue for 48 hours and if no recurrent VT, could change to oral. OK to defer on ischemia evaluation for now (note that his VT occurred without apparent provocation and while at rest) Ultimately, he may be a candidate for VT ablation - his slow VT is quite well tolerated FRANK HAND MD * Gordon Lynn MD - 05/12/2024 10:20 AM EST Inpatient Cardiology Progress Note Patient Name: Shahnaz Santiago Service: CV2 Responsible Attending: Gordon Lynn MD Reason for continued hospitalization: Evaluation and management of arrhythmia / atrial fibrillation Active Problems: Active Hospital Problems Diagnosis Ventricular tachycardia Resolved Hospital Problems No resolved problems to display. Interval History: -NAEON -Stress test deferred give lack of isotope -Pt went into slow VT with HR 130s-140s this afternoon, remaining HD stable -Amio bolus + gtt was initiated with resolution to NSR -Following further discussion with patient, code status transitioned to Full Code Meds: Scheduled Meds: [START ON 05/13/2024] insulin glargine (Lantus;Semglee) (100 unit/mL) subcutaneous injection 8 UnitsSubcutaneous Daily insulin lispro 1-6 Units Subcutaneous Q4H JULIET sodium chloride 0.9 % (flush) 5 mL Intravenous BID sodium chloride 0.9 % (flush) 5 mL Intravenous BID insulin lispro 0-8 Units Subcutaneous TID WC atorvastatin 20 mg Oral Daily cholecalciferoL 400 Units Oral Daily lisinopriL 2.5 mg Oral Daily pantoprazole EC 40 mg Oral Daily rivaroxaban 20 mg Oral Daily metoproloL tartrate 25 mg Oral Q6H JULIET gabapentin 300 mg Oral Daily lamoTRIgine 200 mg Oral Daily psyllium husk 1 packet Oral BID magnesium oxide 400 mg Oral BID Continuous Infusions: AMIOdarone 0.5 mg/min (05/12/242044) PRN Meds:simethicone, polyethylene glycoL (MIRALAX) oral powder, sodium chloride 0.9 % (flush), lidocaine, traMADoL, zolpidem, bisacodyL, lactulose, glucose 40% oral geL OR dextrose OR glucagon, sodium chloride 0.9 % (flush) Physical Exam: Vital Signs: Last value Range last 24 hrs Temperature Temp: 36.7 ??C (98.1 ??F) Temp: [36.5 ??C (97.7 ??F)-36.9 ??C (98.4 ??F)] Heart Rate Heart Rate: 60 Heart Rate: [60-135] Blood Pressure BP: 132/71 BP: (99-151)/(56-90) Respiratory Rate Resp: 16 Resp: [16-18] SpO2 SpO2: 99 % SpO2: [94 %-99 %] Physical Exam Constitutional: General: He is not in acute distress. Appearance: Normal appearance. He is obese. He is not ill-appearing or toxic-appearing. HENT: Head: Normocephalic and atraumatic. Eyes: General: No scleral icterus. Conjunctiva/sclera: Conjunctivae normal. Cardiovascular: Rate and Rhythm: Normal rate and regular rhythm. Pulmonary: Effort: No respiratory distress. Breath sounds: No wheezing or rales. Abdominal: General: Abdomen is flat. Bowel sounds are normal. There is no distension. Tenderness: There is no abdominal tenderness. Musculoskeletal: Right lower leg: No edema. Left lower leg: No edema. Skin: General: Skin is warm. Capillary Refill: Capillary refill takes less than 2 seconds. Neurological: General: No focal deficit present. Mental Status: He is alert. Mental status is at baseline. Lab Comments: Recent Labs 05/12/24 0319 05/11/24 0836 05/10/24 0020 WBC 6.92 9.51* 7.51 HGB 14.3 15.9 14.9 HCT 42.3 46.9 45.8 PLATELET 195 224 216 Recent Labs 05/10/24 0021 INR 1.4 Recent Labs 05/12/24 1555 05/12/24 0319 05/11/24 0836 NA 133* 138 138 K 4.3 4.5 4.0 CL 98 101 102 CO2 * 25 22 BUN 21* 23* 22* CREATININE 1.08 1.15 1.05 Recent Labs 05/10/24 0021 AST 40* ALT 42 ALKPHOS 61 BILITOT 0.3 Recent Labs 05/12/24 1555 05/12/24 0319 05/11/24 0836 05/10/24 0021 CALCIUM 8.9 9.3 9.3 9.2 MAGNESIUM 0.77 0.80 0.77 0.83 PHOS -- -- -- 2.9 Recent Labs 05/10/24 0356 05/10/24 0117 05/10/24 0021 TROPONINTHS 15 13 13 Pertinent Radiographic/Diagnostic Results: TTE 05/11/24: Interpretation Summary 1. Milldy increased left ventriclar wall thickness, normal chamber size and mildly reduced systolic function with beat to beat variability. The left ventricular ejection fraction is 47% by Paz's biplane. Hypokinesis of the inferior wall. Also, abnormal septal motion associated with pacemaker activity. 2. Normal right ventricular size and systolic function. There is a CIED lead in the right ventricle. 3. Mild mitral regurgitation. Trace aortic regurgitation. Compared to 11/06/2016: No major changes, EF remains in the same range. Assessment: Mr. Santiago is a 73 yr old male w/ complex cardiac hx of persistent atrial fibrillationw/ prior DCC, and multiple episodes of VT w/ palcement of AICD/pacer in the past who presented after AICD firing for VT with recurrence of afib now s/p cardioversion. Plan: #Outpatient VT episode with successful ICD discharge #Recurrent slow VT #Recurrence of Afib s/p successful DCCV -EP consulted appreciate recs -Slow VT episode 05/12, resolved following Amio bolus -Continue Amiodarone gtt -Metoprolol Tartrate 25mg q6h -Continue home Xarelto (denies missed doses within past 6 weeks) -S/p successful cardioversion to NSR 05/11 -Goal >48hrs w/out recurrent VT #Ischemic Cardiomyopathy LVEF 47% #No clinical evidence of HF #HLD -Continue Metoprolol as above -Continue home lisinopril 2.5mg daily -Consider further GDMT uptitration outpatient -Continue atorvastatin 20mg daily #Depression -Continue home lamictal #T2DM -Lantus 8U daily -Continue prandial insulin -q4h SSI PRN -A1c 8.6 Code Status: Full Code Gordon Lynn MD 05/12/2024 * Gordon Lynn MD - 05/11/2024 9:12 AM EST Inpatient Cardiology Progress Note Patient Name: Shahnaz Santiago Service: CV2 Responsible Attending: Gordon Lynn MD Reason for continued hospitalization: Evaluation and management of arrhythmia / atrial fibrillation Active Problems: Active Hospital Problems Diagnosis Ventricular tachycardia Resolved Hospital Problems No resolved problems to display. Interval History: -NAEON -Patient underwent successful DCCV today with conversion back to NSR -Planned for stress test tomorrow -Mr. Santiago denies new concerns Meds: Scheduled Meds: sodium chloride 0.9 % (flush) 5 mL Intravenous BID insulin lispro 2-12 Units Subcutaneous Q4H JULIET sodium chloride 0.9 % (flush) 5 mL Intravenous BID insulin lispro 0-8 Units Subcutaneous TID WC atorvastatin 20 mg Oral Daily cholecalciferoL 400 Units Oral Daily lisinopriL 2.5 mg Oral Daily pantoprazole EC 40 mg Oral Daily rivaroxaban 20 mg Oral Daily metoproloL tartrate 25 mg Oral Q6H JULIET gabapentin 300 mg Oral Daily lamoTRIgine 200 mg Oral Daily psyllium husk 1 packet Oral BID magnesium oxide 400 mg Oral BID AMIOdarone 200 mg Oral Daily Continuous Infusions: PRN Meds:polyethylene glycoL (MIRALAX) oral powder, sodium chloride 0.9 % (flush), lidocaine, traMADoL, zolpidem, bisacodyL, lactulose, glucose 40% oral geL OR dextrose OR glucagon, sodium chloride 0.9 % (flush) Physical Exam: Vital Signs: Last value Range last 24 hrs Temperature Temp: 36.5 ??C (97.7 ??F) Temp: [36.5 ??C (97.7 ??F)-37 ??C (98.6 ??F)] Heart Rate Heart Rate: 60 Heart Rate: [56-79] Blood Pressure BP: 109/68 BP: (96-129)/(53-84) Respiratory Rate Resp: 16 Resp: [14-19] SpO2 SpO2: 96 % SpO2: [96 %-98 %] Physical Exam Constitutional: General: He is not in acute distress. Appearance: Normal appearance. He is obese. He is not ill-appearing or toxic-appearing. HENT: Head: Normocephalic and atraumatic. Eyes: General: No scleral icterus. Conjunctiva/sclera: Conjunctivae normal. Cardiovascular: Rate and Rhythm: Normal rate and regular rhythm. Pulmonary: Effort: No respiratory distress. Breath sounds: No wheezing or rales. Abdominal: General: Abdomen is flat. Bowel sounds are normal. There is no distension. Tenderness: There is no abdominal tenderness. Musculoskeletal: Right lower leg: No edema. Left lower leg: No edema. Skin: General: Skin is warm. Capillary Refill: Capillary refill takes less than 2 seconds. Neurological: General: No focal deficit present. Mental Status: He is alert. Mental status is at baseline. Lab Comments: Recent Labs 05/11/24 0836 05/10/24 0020 WBC 9.51* 7.51 HGB 15.9 14.9 HCT 46.9 45.8 PLATELET 224 216 Recent Labs 05/10/24 0021 INR 1.4 Recent Labs 05/11/24 0836 05/10/24 0021 NA 138 140 K 4.0 4.6 CL 102 105 CO2 22 25 BUN 22* 18 CREATININE 1.05 0.92 Recent Labs 05/10/24 0021 AST 40* ALT 42 ALKPHOS 61 BILITOT 0.3 Recent Labs 05/11/24 0836 05/10/24 0021 CALCIUM 9.3 9.2 MAGNESIUM 0.77 0.83 PHOS -- 2.9 Recent Labs 05/10/24 0356 05/10/24 0117 05/10/24 0021 TROPONINTHS 15 13 13 Pertinent Radiographic/Diagnostic Results: TTE 05/11/24: Interpretation Summary 1. Milldy increased left ventriclar wall thickness, normal chamber size and mildly reduced systolic function with beat to beat variability. The left ventricular ejection fraction is 47% by Paz's biplane. Hypokinesis of the inferior wall. Also, abnormal septal motion associated with pacemaker activity. 2. Normal right ventricular size and systolic function. There is a CIED lead in the right ventricle. 3. Mild mitral regurgitation. Trace aortic regurgitation. Compared to 11/06/2016: No major changes, EF remains in the same range. Assessment: Mr. Santiago is a 73 yr old male w/ complex cardiac hx of persistent atrial fibrillationw/ prior DCC, and multiple episodes of VT w/ palcement of AICD/pacer in the past who presented after AICD firing for VT with recurrence of afib now s/p cardioversion. Plan: #VT episode with successful ICD discharge #Recurrence of Afib -EP consulted appreciate recs -Amiodarone 200mg daily -Metoprolol Tartrate 25mg q6h -Continue home Xarelto (denies missed doses within past 6 weeks) -S/p successful cardioversion to NSR 05/11 -NPO at OR for NM stress test tomorrow #Ischemic Cardiomyopathy LVEF 47% #No clinical evidence of HF #HLD -Continue Metoprolol as above -Continue home lisinopril 2.5mg daily -Consider further GDMT uptitration outpatient -Continue atorvastatin 20mg daily #Depression -Continue home lamictal #T2DM -Continue prandial insulin -q4h SSI PRN -A1c 8.6 Gordon Lynn MD 05/11/2024 documented in this encounter H&P Notes * Jero Eric MD - 05/10/2024 12:12 AM EST Cardiology Admission H&P Patient Name: Shahnaz Santiago Date of : 1950 Age: 73 y.o. Hospital Admit Date: 05/09/2024 Inpatient Attending: Bony Corcoran MD PCP: Dewayne Carrington MD Presenting Diagnosis/Chief Complaint: My defibrillator fired Active Problem List: Active Hospital Problems Diagnosis Ventricular tachycardia Resolved Hospital Problems No resolved problems to display. History of Present Illness: HPI Mr. Shahnaz Santiago is a 73-year-old gentleman from [facility] who has an ischemic cardiomyopathy (LVEF 49% with global LV systolic dysfunction per echo 11/06/2016), followed in the EPclinic for persistent atrial fibrillation as well as ventricular tachycardia. Previous DCCV for persistent A-fib October 2020 chronically anticoagulated with Xarelto, status post dual-chamber [place] [employer] ICD 01/10/2014 complicated by atrial lead dislodgment requiring lead revision 04/17/2014, with both successful and unsuccessful ATP in the past. ICD was reprogrammed in November 2020 after he is found to be in and out of VT at a rate lower than his programmed detection rate. Patient was subsequently started on amiodarone. Coronary artery disease diagnosed 2007 by left heart catheterization [facility] with PCI to unspecified vessel subsequent cardiac catheterization 2008 with stents to LADand circumflex and subsequent cardiac cath [facility] 05/13/2013 after an abnormal pharmacologic stress test at [facility] showed LVEF 45% with partially reversible inferior defect. Left heart cath 05/13/2013 showed normal left main mild diffuse disease throughout LAD with 80% mid stenosis representing restenosis lesion, mild diffuse disease proximal obtuse marginal branch and mild diffuse disease throughout the right coronary artery, status post 3 drug-eluting stents to 80% mid LAD.Subsequent left heart cath done at [facility] January 06, 2014 again showing normal left main hazy 50%mid LAD stenosis mild diffuse disease throughout the circumflex moderate diffuse disease proximal RCA with totally occluded distal RCA with brisk flow via bridging collaterals. Patient now presents to the emergency department [facility] on 05/09/2024 with reports of his defibrillator firing. He has beennot feeling well for last few days with generalized malaise and fatigue no actual chest tightness with some mild exertional dyspnea. He has had some vague feelings of abdominal discomfort over the last several days and has been constipated for the past week. Is also noted systolic blood pressures abit on the low side in the low 100s and has noticed heart monitor shown that he is in atrial fibrillation. Patient reportedly has been compliant with his amiodarone therapy and his Xarelto. His AICD pacemaker was interrogated at the outside hospital since his AICD was last reset 2023 he had a total of 17 ventricular episodes no V-fib he had 16 episodes of nonsustained ventricular tachycardia 1 ventricular tachycardia resolved and shocked and delivered which was 100% successful. 2 ATP has been delivered with no success.. She is had atrial pacing 11% time ventricular pacing 1% of the time. In May 09, 2024 at 1418 showed ATR at 225 bpm and at 1416 1 episode of ventricular tachycardia and 144 bpm with successful delivery of a shock. Evaluation of the outside hospital included an EKG showed atrial fibrillation rate of 90 bpm with nonspecific intraventricular conduction block, left anterior fascicular block, old inferior infarct and occasional PVCs but no acute ST elevations. Troponin I levels were 6 and 8 respectively both within normal limits. proBNP was normal at 130. CBC was unremarkable. Electrolytes showed normal potassium 4.4 magnesium was low at 1.5 creatinine normal at 1.2 and BUN was normal at 19 transaminases wereupper normal to minimally elevated with an AST of 43 and ALT of 65. With a normal total bilirubin 0.51 and alkaline phosphatase that was normal at 83. [facility] requested transfer as they did not have any echocardiography availability or cardiology consultation availability. Furthermore they had no in-house EP service. Dr. Espinoza took the phone call from [facility] cardiology and recommended transfer for evaluation by our EP service. 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 In the past there has been some concern about hepatotoxicity from his amiodarone has been followed by [facility] GI service there appears that his transaminases have been relatively stable recently. Currently patient denies any shortness of breath or chest pain but does note constipation feeling of abdominal bloating. Patient be kept n.p.o. for possible cardioversion and TTE. Dr. Espinoza did recommend nuclear stress test to rule out new ischemic heart disease. Past Medical History: History reviewed. No pertinent past medical history. As noted in HPI Surgical History/Problems: Past Surgical History: Procedure Laterality Date PRO CARDIOVERSION ELECTIVE ARRHYTHMIA EXTERNAL N/A 10/23/2020 CARDIOVERSION-ELECTIVE (WRVU 2.25) performed by Fantasma Matos MD at [facility] MAIN OR PRO UPPER GI ENDOSCOPY, BIOPSY 12/17/2011 EGD WITH BIOPSY performed by KYRA VYAS at [facility] ENDOSCOPY Significant Family History: History reviewed. No pertinent family history. Social History: Social History Socioeconomic History Marital status: Spouse name: Not on file Number of children: Not on file Years of education: Not on file Highest education level: Not on file Occupational History Not on file Tobacco Use Smoking status: Every Day Types: e-Cigarettes Smokeless tobacco: Never Tobacco comments: using e cigarettes Vaping Use Vaping status: Every Day Start date: 12/19/2014 Substance and Sexual Activity Alcohol use: No Drug use: No Sexual activity: Not on file Other Topics Concern Not on file Social History Narrative Not on file Social Determinants of Health Financial Resource Strain: Not on file Food Insecurity: Not on file Transportation Needs: Not on file Physical Activity: Not on file Intimate Partner Violence: Not At Risk (05/09/2024) IPV Inpatient Questions Prevent Contact with Others: no Feels Threatened by Someone: no Feels Unsafe at Home: no Physical Signs of Abuse Present: no Housing Stability: Not on file REVIEW OF SYSTEMS: Review of Systems Constitutional: Positive for fatigue. Respiratory: Positive for shortness of breath. Negative for chest tightness. Cardiovascular: Positive for palpitations. Negative for chest pain and leg swelling. Gastrointestinal: Positive for abdominal distention, abdominal pain and constipation. Endocrine: Negative. Genitourinary: Negative. Musculoskeletal: Negative. Allergic/Immunologic: Negative. Neurological: Negative. Hematological: Negative. Psychiatric/Behavioral: Negative. Medications: Medications Prior to Admission Medication Sig Dispense Refill Last Dose Trintellix 5 mg Tablet Take 5 mg by mouth daily. lisinopriL (Zestril) 2.5 mg Tablet Take 1 tablet by mouth daily. 90 tablet 0 AMIOdarone (Paceron) 200 mg Tablet Take 400 mg by mouth daily. atorvastatin (Lipitor) 20 mg Tablet Take 1 tablet by mouth daily. 90 tablet 3 cyanocobalamin, Vitamin B-12, (Vitamin B-12) 1,000 mcg Tablet Take 1,000 mcg by mouth daily. lamoTRIgine (LaMICtal) 100 mg Tablet Take 50 mg by mouth daily. TAKES IN ADDITION TO 200 MG TAB ferrous sulfate 324 mg (65 mg iron) Tablet, Delayed Release (E.C.) Take 324 mg by mouth daily. KlonoPIN 1 mg Tablet Take by mouth 3 times daily as needed. tacrolimus (PROTOPIC) 0.1 % Ointment Apply topically to buttocks twice daily for 6 weeks, repeat asneeded 100 g 3 BD ULTRA-FINE MINI PEN NEEDLE 31 gauge x 3/16 Needle INJECT ONCE DAILY DIRECTED 0 metoprolol succinate (TOPROL-XL) 100 mg Tablet Sustained Release 24 hr Take 100 mg by mouth 2 timesdaily. FREESTYLE LITE STRIPS TEST THREE TIMES DAILY 0 CHOLECALCIFEROL, VITAMIN D3, 2,000 unit Capsule take 1 capsule by mouth daily 0 lamoTRIgine (LAMICTAL) 200 mg Tablet 150 mg daily. 0 aspirin 81 mg Tablet, Delayed Release (E.C.) Take 81 mg by mouth daily. rivaroxaban (XARELTO) 20 mg Tablet Take 1 tablet by mouth daily. 30 tablet 11 MAGNESIUM CARBONATE ORAL Take 400 mg by [...] tongue every 5 minutes as needed.Reported on 09/30/2016 Allergies: Allergies Allergen Reactions Latex Other reaction(s): trouble breathing/moving Adhesive Tape Rash tegaderm ok Use paper tape Other reaction(s): rash PHYSICAL EXAM: Last set of vital signs: BP 119/77 Pulse 63 Temp 36.6 ??C (97.9 ??F) (Oral) Resp 16 Ht 185.4 cm (6' 1) Wt 85.3 kg (188 lb) SpO2 98% BMI 24.80 kg/m?? Physical Exam Constitutional: General: He is not in acute distress. Appearance: He is obese. He is not ill-appearing, toxic-appearing or diaphoretic. HENT: Head: Normocephalic and atraumatic. Comments: Bearded gentleman Nose: Nose normal. Mouth/Throat: Mouth: Mucous membranes are moist. Pharynx: Oropharynx is clear. No oropharyngeal exudate or posterior oropharyngeal erythema. Comments: Mallampati class 2 Eyes: Extraocular Movements: Extraocular movements intact. Conjunctiva/sclera: Conjunctivae normal. Pupils: Pupils are equal, round, and reactive to light. Cardiovascular: Rate and Rhythm: Rhythm irregular. Pulses: Carotid pulses are 2+ on the right side and 2+ on the left side. Radial pulses are 2+ on the right side and 2+ on the left side. Femoral pulses are 2+ on the right side and 2+ on the left side. Dorsalis pedis pulses are 1+ on the right side and 1+ on the left side. Posterior tibial pulses are 1+ on the right side and 1+ on the left side. Heart sounds: No murmur heard. No friction rub. Pulmonary: Effort: Pulmonary effort is normal. Breath sounds: Normal breath sounds. Abdominal: General: Bowel sounds are normal. There is distension. Palpations: Abdomen is soft. There is no mass. Tenderness: There is abdominal tenderness. There is no guarding or rebound. Musculoskeletal: General: Normal range of motion. Cervical back: Normal range of motion and neck supple. Right lower leg: No edema. Left lower leg: No edema. Skin: General: Skin is warm and dry. Capillary Refill: Capillary refill takes 2 to 3 seconds. Neurological: General: No focal deficit present. Mental Status: He is alert and oriented to person, place, and time. Mental status is at baseline. Psychiatric: Mood and Affect: Mood normal. Behavior: Behavior normal. Thought Content: Thought content normal. Judgment: Judgment normal. Diagnostics: I have independently visualized the following studies: ECG: LABS: Recent Results (from the past 24 hour(s)) POC, GLUCOSE Result Value Ref Range Glucometer, POC 163 65 - 199 mg/dL ASSESSMENT: Mr. Santiago is a 73 yr old male w/ complex cardiac hx of persistent atrial fibrillationw/ prior DCC, and multiple episodes of VT w/ palcement of AICD/pacer in the past who presented after AICD firing for VT and now is in afib w/ intermittent atrial pacing. His troponins were negative and he was not found to be in acute CHF although he has known ischemic cardiomyopathy. He is here for EP evaluation and to rule out any underlying ischemia that may be contributing to his arrhythmias. TREATMENT PLAN: EP consultation for interrogation of AICD/pacer, adjustment in his BB dosing (was on Toprol XL 100 mg daily along w/ amiodarone 100 mg daily. I have put him on lopressor 50 mg q6h. Will get TTE and keep him NPO in case EP decides on DCC for his afib.He may need either up titration of his amiodaroneor another antidysrhythmic. Continue current dose of Xarelto. Will hold metformin and treat DM w/ corrective scale aspart along w/ CHO coverage. Professioal time spent interviewing, examing patient, reviewing both in house and outside studies, as well as discussing proposed plan of care with the patient/and/or family, and placing orders, consulting w/ specialists and documenting my findings in the chart involved 75 minutes Provider: Jero Eric MD Provider #: [id number] 05/10/2024 documented in this encounter Procedure Notes * Frank Hand MD - 05/11/2024 11:52 AM EST External Cardioversion Physician: Jonny ANGEL, FRANK HAND MD Indication: Atrial fibrillation Procedure: The patient was brought to the procedure room in the fasting state with an intravenous line in place. After answering all of the patient's questions and assuring informed consent, and withthe anesthesiology service assisting with sedation and airway management, the patient transiently was anesthetized. A 200 joule synchronized biphasic cardioversion was performed with a left parasternal anterior patch and left paraspinal posterior patch, reverting the patient to sinus rhythm at 66 bpm with occasional APCs. A total of 1 shock(s) was/were delivered. The patient subsequently awoke with no memory of the cardioversion, and there were no apparent complications. A follow up 12-lead ECG was obtained. The ICD was interrogated prior to and after the cardioversion - there was normal device function FRANK HAND MD documented in this encounter Miscellaneous Notes * Plan of Care - Jaron Brown RN - 05/14/2024 6:38 AM EST SHIFT EVALUATION NOTE: Shift Summary: Pt AAOx4. Bed alarm in use. VSS on RA. Pt denies CP and SOB. 1st DEG AVB/ A- paced on tele, see scanned docs. 1x Zolpidem per JUN. Amio gtt continued as ordered. See flowsheets for I&O. Call coleman within reach. Patient briefly on precautions overnight for respiratory rule out following complaint of sore throat/ congestion. Panel resulted negative. Plan Moving Forward: Discharge planning as appropriate. CPG Outcome Evaluation: Problem: Adult Inpatient Plan of Care Goal: Plan of Care Review Outcome: Ongoing (Interventions Implemented as Appropriate) Goal: Patient-Specific Goal (Individualized) Outcome: Ongoing (Interventions Implemented as Appropriate) Goal: Absence of Hospital-Acquired Illness or Injury Outcome: Ongoing (Interventions Implemented as Appropriate) Goal: Optimal Comfort and Wellbeing Outcome: Ongoing (Interventions Implemented as Appropriate) Goal: Readiness for Transition of Care Outcome: Ongoing (Interventions Implemented as Appropriate) Problem: Dysrhythmia Goal: Normalized Cardiac Rhythm Outcome: Ongoing (Interventions Implemented as Appropriate) * Plan of Care - Adis Berman RN - 05/13/2024 1:59 PM EST OUTCOME EVALUATION NOTE: OUTCOME SUMMARY: Patient admitted with a-fib and runs of v-t cardioverted to NSR had a run of v-t yesterday afternoon. Amio drip started. PLAN MOVING FORWARD: Patient remains on amio drip at 0.5 mg/hr. INDIVIDUALIZED FALL PREVENTION INTERVENTIONS: Patient-specific fall risk factors per assessment: [current deficits]: tethered to iv pole Assistance [level of assistance required for transfers and ambulation]: ind Supervision [direct monitoring required during toileting and ADLs]: call coleman Surveillance [continuous indirect monitoring]: hourly rounds Patient-specific fall prevention interventions for sensory deficits provided, if applicable: CPG GOAL OUTCOME EVALUATION: * Care Management - Darcy Garcia RN - 05/13/2024 10:14 AM EST OFFICE OF CARE MANAGEMENT PROGRESS NOTE LOS: Hospital Day 4 days Chart reviewed, care reviewed with primary team and at interdisciplinary rounds. Medical Decision Maker: Self Financial Decision Maker: Self Functional status prior to admission: Independent Home Environment: Others in the home: alone. Current Living Arrangements: home/apartment/condo. Accessibility Concerns: apartment on 1st floor with 7STE. Current Functional Ability: Assistive Person DME used at home: cane - straight DME Needed at Discharge: No Patient is insured through: Primary Insurance: HUMANA MANAGED MEDICARE Payor: HUMANA MANAGED MEDICARE / Plan: HUMANA PPO MANAGED MEDICARE / Product Type: *No Product type* / Secondary Insurance: N/A Plan for discharge is: Home w/o Services Outpatient Agency/Support Group Needs: None Agency Referrals: Not Applicable Transportation: family or friend will provide Barriers to discharge: Global: None Financial / Legal: Insurance Insurance: other Financial/Legal Comment: will give pt DH Financial Assistance Application as pt states he may have financial difficulty with this admission Plan: Patient is not medically ready related to: Vtach yesterday = 48 hours monitoring, amiodarone increase. Plan going forward is: discharge home into the care Anticipated Date of Discharge: 05/15/2024 * Plan of Care - Jaron Brown RN - 05/13/2024 6:59 AM EST SHIFT EVALUATION NOTE: Shift Summary: Pt AAOx4. Bed alarm in use. VSS on RA. Pt denies CP and SOB. 1st DEG AVB/ A- paced on tele, see scanned docs. 1x Zolpidem per JUN. Amio gtt continued as ordered. See flowsheets for I&O. Call coleman within reach. Plan Moving Forward: Plan for stress test this AM CPG Outcome Evaluation: Problem: Adult Inpatient Plan of Care Goal: Plan of Care Review Outcome: Ongoing (Interventions Implemented as Appropriate) Goal: Patient-Specific Goal (Individualized) Outcome: Ongoing (Interventions Implemented as Appropriate) Goal: Absence of Hospital-Acquired Illness or Injury Outcome: Ongoing (Interventions Implemented as Appropriate) Goal: Optimal Comfort and Wellbeing Outcome: Ongoing (Interventions Implemented as Appropriate) Goal: Readiness for Transition of Care Outcome: Ongoing (Interventions Implemented as Appropriate) Problem: Dysrhythmia Goal: Normalized Cardiac Rhythm Outcome: Ongoing (Interventions Implemented as Appropriate) * Consult Note - Trevon Olivarez RN - 05/12/2024 2:45 PM EST ALLISON EARLY RESPONSE TEAM NOTE Name: Shahnaz Santiago Age: 73 y.o. Sex; Male Date of : 1950 Responding Members: Trevon Olivarez RN, Magda Courtney RN Date/Time of Admission: 05/09/2024 10:31 PM Unit/Room: [place] [address] Service: Cardiology Attending: Shane Tufter Hand present? Yes Attending Contacted? Yes Time Activated: 14:21 Time Arrived: 14:22 Time at bedside: 00:30 Indication for Consult: Cardiac Tachycardia- concern for VT with a pulse ASSESSMENT Brief 24 hr history: Pt admitted on 05/09 for evaluation by EP for potential monomorphic VT and afib. Pt has AICD pacemaker. PMHX of ischemic cardiomyopathy. Pt resting in chair when his rhythm changed to VT- pt alert and talking, reporting some dizziness. Pt was reclined in chair. 150mg Amiodarone IV bolus initiated. Upon LS arrival, rhythm noted to be aberrant- QRS complexes wide but rhythm regular, no P waves noted on tele. EKG obtained to rule out VT. Code Status: Modified Code Status, DNR RR: 16 HR: 130 BP: 125/85 SpO2: 97 FiO2/Flow: RA Device: None LOC:Alert/Appropriate Skin: warm and dry ~1428, pt converted back to paced rhythm. HR now 60 w/ AV pacing spikes. Pt remains hemodynamicallystable and states dizziness has improved. Pt able to sit upright in chair w/o dizziness. PLAN / INTERVENTION Disposition: Remain on Floor Please page [facility] at #[phone] with additional questions. 2:45 PM, May 12, 2024 Trevon Olivarez RN, * Plan of Care - Jaron Brown RN - 05/12/2024 6:09 AM EST SHIFT EVALUATION NOTE: Shift Summary: Pt AAOx4. Bed alarm in use. VSS on RA. Pt denies CP and SOB. 1st DEG AVB/ A- paced on tele, see scanned docs. 1x Zolpidem per JUN. See flowsheets for I&O. Call coleman within reach. Plan Moving Forward: NPO for stress test later this AM CPG Outcome Evaluation: Problem: Adult Inpatient Plan of Care Goal: Plan of Care Review Outcome: Ongoing (Interventions Implemented as Appropriate) Goal: Patient-Specific Goal (Individualized) Outcome: Ongoing (Interventions Implemented as Appropriate) Goal: Absence of Hospital-Acquired Illness or Injury Outcome: Ongoing (Interventions Implemented as Appropriate) Goal: Optimal Comfort and Wellbeing Outcome: Ongoing (Interventions Implemented as Appropriate) Goal: Readiness for Transition of Care Outcome: Ongoing (Interventions Implemented as Appropriate) Problem: Dysrhythmia Goal: Normalized Cardiac Rhythm Outcome: Ongoing (Interventions Implemented as Appropriate) * Plan of Care - Johanna Lewis RN - 05/11/2024 5:19 AM EST OUTCOME EVALUATION NOTE: OUTCOME SUMMARY: Patient A&Ox4 on RA. Denies any CP or SOB. Ambulates to bathroom for elimination, urinal at bedside overnight. Ambulates with SBA. NPO @0000 for planned AI/Cardioversion. Subsequent high blood sugars contacted , adjusted insulin orders, administered per JUN. Urine sample sent for Albumin/Creatinine levels. Plan Moving Forward Q4 VS Finger stick - Yes Q4 NPO for AI/Cardioversion Cards workup to increase amio and metop INDIVIDUALIZED FALL PREVENTION INTERVENTIONS: Patient-specific fall risk factors per assessment: [current deficits]: unfamiliar environment, lines/cords/wires Assistance [level of assistance required for transfers and ambulation]: SBA 1st night on HVU Supervision [direct monitoring required during toileting and ADLs]: SBA 1st night on HVU Surveillance [continuous indirect monitoring]: tele, pulse ox Patient-specific fall prevention interventions for sensory deficits provided, if applicable: non-slip socks, clutter free environment, lighting adjusted, personal items and call coleman within reach. Problem: Adult Inpatient Plan of Care Goal: Plan of Care Review Outcome: Ongoing (Interventions Implemented as Appropriate) Goal: Patient-Specific Goal (Individualized) Outcome: Ongoing (Interventions Implemented as Appropriate) Goal: Absence of Hospital-Acquired Illness or Injury Outcome: Ongoing (Interventions Implemented as Appropriate) Goal: Optimal Comfort and Wellbeing Outcome: Ongoing (Interventions Implemented as Appropriate) Goal: Readiness for Transition of Care Outcome: Ongoing (Interventions Implemented as Appropriate) Problem: Dysrhythmia Goal: Normalized Cardiac Rhythm Outcome: Ongoing (Interventions Implemented as Appropriate) * Plan of Care - Crow Felton RN - 05/10/2024 4:55 PM EST OUTCOME EVALUATION NOTE: OUTCOME SUMMARY: -VSS stable on RA, pt has underlying afib -Cards workup: plan to increase amio/metoprolol -TTE done today -neuro intact -cardiac diet/CHO counting for today PLAN MOVING FORWARD: -VS Q4 -plan for cardioversion tomorrow, [place] to evaluate ICD during stay -NPO at 05/11 0000 for procedure INDIVIDUALIZED FALL PREVENTION INTERVENTIONS: Patient-specific fall risk factors per assessment: [current deficits]: fatigue, gen weakness Assistance [level of assistance required for transfers and ambulation]: independent Supervision [direct monitoring required during toileting and ADLs]: independent Surveillance [continuous indirect monitoring]: Tele, SaO2 CARE PLAN GOAL OUTCOME EVALUATION: Problem: Adult Inpatient Plan of Care Goal: Plan of Care Review Outcome: Ongoing (Interventions Implemented as Appropriate) Goal: Patient-Specific Goal (Individualized) Outcome: Ongoing (Interventions Implemented as Appropriate) Goal: Absence of Hospital-Acquired Illness or Injury Outcome: Ongoing (Interventions Implemented as Appropriate) Goal: Optimal Comfort and Wellbeing Outcome: Ongoing (Interventions Implemented as Appropriate) Goal: Readiness for Transition of Care Outcome: Ongoing (Interventions Implemented as Appropriate) Problem: Dysrhythmia Goal: Normalized Cardiac Rhythm Outcome: Ongoing (Interventions Implemented as Appropriate) * Initial Assessments - Aniya Heck RN - 05/10/2024 11:47 AM EST Office of Care Management Initial Assessment Aniya Heck RN reviewed record and discussed patient with Care Team. Source of Information: Team, bedside nurse, medical record, and Patient CM/PRESIDENT AND CEO met with patient face to face. Introduced self/reviewed role; services accepted. Admitted From: Transfer from another hospital Location: [facility] Reason for Hospitalization: Defibrilator fired Past medical History: History reviewed. No pertinent past medical history. Hospitalizations Within the Past 30 Days: no previous admission in last 30 days Current Decision-Making Capacity: Self If AD's have not been completed the following surrogate would be surrogate decision maker per [place] surrogate decision making law. (Only good for 180 days) Any patient receiving care in [place] must abide by [place] law. The hierarchy for surrogate decision making is: (a) Patient???s spouse or civil union partner unless there is a divorce proceeding, separation agreement, or restraining order limiting that person???s relationship with the patient. (b) Any adult son or daughter of the patient. (c) Either parent of the patient. (d) Any adult brother or sister of the patient. (e) Any adult grandchild of the patient. (f) Any grandparent of the patient. (g) Any adult aunt, uncle, niece, or nephew of the patient. (h) A close friend of the patient. (i) The agent with financial power of attorney at law or a conservator appointed in accordance with RSA 464-A. (j) The guardian of the patient???s estate. Advance Care Planning: Do NOT Attempt CPR - Inpatient <no information> -Advanced Directive: No, declines (pt will think about completing advance directives) Current Coping/Education/Information Needs: pt coping well Current Functional Ability: Assistive Person Functional Status Prior to Admission: Independent Prior ADLs & IADLs: Independent with all ADLs & IADLs Home Environment: Others in the home: alone. Current Living Arrangements: home/apartment/condo. Accessibility Concerns:apartment on 1st floor with 7STE. In the last 12 months, was there a time when you were not able to pay the mortgage or rent on time?: No In the past 12 months, how many times have you moved where you were living?: 0 At any time in the past 12 months, were you homeless or living in a long-term (including now)?: No In the past 12 months has the electric, gas, oil, or water [employer] threatened to shut off services in your home?: No Within the past 12 months, you worried that your food would run out before you got the money to buymore.: Never true Within the past 12 months, the food you bought just didn't last and you didn't have money to get more.: Never true Resource / Environmental Concerns: Resource/Environmental Concerns: none Home Accessibility Concerns: stairs to enter home In the past 12 months, has lack of transportation kept you from medical appointments or from getting medications?: No In the past 12 months, has lack of transportation kept you from meetings, work, or from getting things needed for daily living?: No Current DME: cane - straight Home Address confirmed as: [address] [place] [id number] Social & Family Supports: All names listed below confirmed with patient as current and correct Extended Emergency Contact Information Primary Emergency Contact: Nkechi Weber [facility] Mobile Relation: Child Secondary Emergency Contact: Kassandra Santiago Mobile Relation: Sibling Current Care Provided by: self Provides Primary Care For: no one Caregiver if needed: child(lashanda), adult Quality of Family relationships: helpful, involved, supportive Community Resources being provided currently: none Behavioral Health History: anxiety and depression, states he is weaning off to see if he still needs the medication as he has been on it for years Substance Use/Abuse confirmed: Social History Tobacco Use Smoking Status Every Day Types: e-Cigarettes Smokeless Tobacco Never Tobacco Comments using e cigarettes In the past year have you used an illegal drug or used a prescription medication for non-medical reasons?: No 0 No problems reported 1-2 Low level 3-5 Moderate level 6-8 Substantial level 9- 10 Severe level In the past year have you had 5 or more drinks a day containing alcohol?: No 0 to 7 points: Low risk 8 to 15 points: Medium risk 16 to 19 points: High risk 20 to 40 points: Addiction likely Health/Prescription Coverage: Primary Insurance: HUMANA MANAGED MEDICARE Payor: HUMANA MANAGED MEDICARE / Plan: HUMANA PPO MANAGED MEDICARE / Product Type: *No Product type* / Secondary Insurance: N/A ; Prescription Coverage: Yes Are you financially able to cover the cost / copay of your medications?: Yes Preferred Pharmacy: [facility] [place], [place] [address] [address] [facility] [address] [place] Status: Patient is a : No Primary Care Provider confirmed: Kit Bright Patient/Caregiver Goals of Treatment: return home Potential Needs for Transition of Care: none Agency Referrals: Not Applicable Transportation: no concerns Transportation Anticipated: family or friend will provide Medications Anticipated: 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 His troponins were negative and he was not found to be in acute CHF although he has known ischemic cardiomyopathy. He is here for EP evaluation and to rule out any underlying ischemia that may be contributing to his arrhythmias. admitted to cardiology service Plan going forward: Will give patient DH Financial Assistance Application. Will continue to monitorfor discharge needs. Care Management team will continue to follow and assist with discharge planning and coordination ofcare as indicated. Aniya Heck RN * Consult Note - Frank Hand MD - 05/10/2024 11:46 AM EST Images from the original note were not included. Inpatient EP Cardiology Consult Note Date of Consultation: 05/10/2024 Admit Date: 05/09/2024 Place of Service: Inpatient Unit Responsible Attending: Shane Reason for Consult: We are seeing Shahnaz Santiago at the request of Dr. Lynn Active Problem List: Active Hospital Problems Diagnosis Ventricular tachycardia Resolved Hospital Problems No resolved problems to display. History of Present Illness: Shahnaz Santiago is a 73 y.o. male, history of coronary artery disease, ischemic cardiomyopathy (LVEF 49% via echo in 2017; 47% [employer] biplane today), who has been followed in the [place] device clinic. His business functional analyst is Dr Andersen. He has a history of a dual-chamber [employer] ICD, that was placed for primary prevention [id number]. 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 Ventricular and atrial pacing burden has generally been low. He has been feeling unwell for about a month, mild shortness of breath, generalized fatigue, there was a slight change in symptoms in the last 2 days, and then he recalls being shocked by his device. Device interrogation is confirmed that he has been in atrial fibrillation for 2 days, also has had monomorphic VT, for which she had ATP, ramp tachycardia pacing, and then a low output cardioversion (see the note appended to the bottom of this consult note) He is minimally aware of his AF. He decreased his amiodarone to 100 mg a day in December. No recent fevers/chills. No chest pain; no symptoms of overt heart failure. Prior cardioversion of AF in October 2020. Review of Systems: Review of Systems Constitutional: Positive for fatigue. Respiratory: Positive for shortness of breath. Negative for chest tightness. Patient Active Problem List Diagnosis Ventricular tachycardia ASCVD (arteriosclerotic cardiovascular disease) Heart catheterization in [facility] in 2007 with placement of a stent in an unspecified vessel Repeat heart catheterization in 2008 with placement of stents to both the LAD and circumflex Followup heart catheterization in 2008 showing stable results in both vessels Recurrent chest discomfort in a somewhat atypical pattern beginning fall Nuclear stress test at [facility] in [place], [place] April during which he developed left shoulder and arm discomfort during submaximal exercise on the treadmill and after which he was converted to a pharmacologic test; nuclear imaging showed ejection fraction of 45% with a partially reversible inferior defect Cath [facility] 05/13/2013: normal left main, mild diffuse disease throughout the LAD with an 80% mid stenosis representing a restenosis lesion, mild diffuse disease in the proximal obtuse marginal branch, and mild diffuse disease throughout the right coronary artery; status post 3.0 X 12 mm JON to 80% mid-LAD lesion (in- stent restenosis) Heart catheterization [facility] January 06, 2014 showing normal left main, hazy 50% mid LAD stenosis, mild diffuse disease throughout the circumflex, and moderate diffuse disease in the proximal RCA with a totally occluded distal RCA with brisk flow via bridging collaterals; fractional flow reserve onthe LAD 0.[address] [facility] August 2016 reportedly showing a small area of inferior ischemia (final report pending) Echo 11/06/16 showing inferior HK with EF 49%; no valvular disease Atrial fibrillation Chronic pain Diverticular disease Dysphagia Magnesium deficiency Obstructive sleep apnea syndrome Rib pain on right side Pain in right wrist Closed fracture of lower end of right radius with routine healing Contusion of left knee Typical atrial flutter Occurred 06/08/13, lasted about 24 hours, and v rate about 80 (documented on ICD interrogation 07/18/14) [id number] score = 3 Patient initially reluctant to be anticoagulated as recommended Atrial pacemaker lead displacement New finding at office follow up 04/10/2014 Plan lead reposition/replacement ICD (implantable cardioverter-defibrillator), dual, in situ New Atrial electrode: [employer] Model# 4126-53 cm Serial# [id number] Bipolar, steroid-tipped, active-fixation IS-1 lead Access: Axillary vein Location Right atrial appendage P wave, PSA: 3 mV P wave, ICD: 4.1 mV Pacing threshold, PSA: 0.7 V at 0.5 ms Pacing threshold, ICD: 0.7 V at 0.5 ms Impedance, PSA: 560 ohms Impedance, ICD: 557 ohms Pace the diaphragm at 10 V: No Old Ventricular electrode: [employer] [place] Model# 0292 Serial# [id number] Bipolar, steroid-tipped, active-fixation DF-4 lead Access: Axillary vein Location: Right ventricular apex Implanted: 01/10/2014 R wave, PSA: NA mV R wave, ICD: 8.9 mV Pacing threshold, PSA: NA V at 0.5 ms Pacing threshold, ICD: 0.7 V at 0.5 ms Impedance, PSA: NA ohms Impedance, ICD: 510 ohms Old Atrial electrode: [employer] Model# 4136 Serial# [id number] Bipolar, steroid-tipped, active-fixation IS-1 lead Access: Axillary vein Location Removed 04/17/2014 Implanted: 01/10/2014 Pulse generator: [employer] Model# E162 Serial# [id number] DDDR ICD Location: Subcutaneous The wound was closed with [...] up and was replaced on 04/17/2014 Hypertension Hypomagnesemia Sustained VT (ventricular tachycardia) Depression --Treated with Lamictal. Dermatitis Irritant contact dermatitis T2DM (type 2 diabetes mellitus) Gastroesophageal reflux disease IBS (irritable bowel syndrome) Coronary atherosclerosis Overview: S/p PCI stent Nephrolithiasis Diabetes mellitus HTN (hypertension) Elevated cholesterol Pertinent Medications: Current Facility-Administered Medications Ordered in Epic Medication Dose Route Frequency Provider Last Rate Last Admin AMIOdarone (Pacerone) tablet 100 mg 100 mg Oral Daily Jero Eric MD 100 mg at 05/10/24826 atorvastatin (Lipitor) tablet 20 mg 20 mg Oral Daily Jero Eric MD 20 mg at 05/10/24826 cholecalciferoL (Vitamin D3) tablet 400 Units 400 Units Oral Daily Jero Eric MD 400 Units at 05/10/24827 lisinopriL (Zestril) tablet 2.5 mg 2.5 mg Oral Daily Jero Eric MD 2.5 mg at 05/10/24826 magnesium chloride Tablet 1 tablet 1 tablet Oral TID Jero Eric MD pantoprazole EC (Protonix) tablet 40 mg 40 mg Oral Daily Jero Eric MD 40 mg at 05/10/24826 rivaroxaban (Xarelto) tablet 20 mg 20 mg Oral Daily Jero Eric MD 20 mg at 827 traMADoL (Ultram) tablet 50 mg 50 mg Oral Q6H PRN Jero Eric MD zolpidem (Ambien) tablet 5 mg 5 mg Oral Nightly PRN Jero Eric MD glucose (Glutose) 40% oral geL 15-30 g of glucose Buccal Q15 Min PRN Jero Eric MD Or dextrose 50% intravenous solution 25 g 25 g Intravenous Q15 Min PRN Jero Eric MD Or glucagon (Glucagen) (1 mg/mL) injection solution 1 mg 1 mg Intramuscular Q15 Min PRN Jero Eric MD insulin lispro (HumaLOG;Admelog) (100 unit/mL) subcutaneous injection vial 1-6 Units 1-6 Units Subcutaneous TID AC Jero Eric MD insulin lispro (HumaLOG;Admelog) (100 unit/mL) subcutaneous injection vial 0-8 Units 0-8 Units Subcutaneous TID WC Jero Eric MD metoproloL tartrate (Lopressor) tablet 25 mg 25 mg Oral Q6H JULIET Jero Eric MD 25 mgat 05/10/24826 gabapentin (Neurontin) capsule 300 mg 300 mg Oral Daily Jero Eric MD 300 mg at 05/10/24826 lamoTRIgine (LaMICtal) tablet 200 mg 200 mg Oral Daily Jero Eric MD 200 mg at 05/10/24826 bisacodyL (Dulcolax) suppository 10 mg 10 mg Rectal Daily PRN Jero Eric MD psyllium husk 1 packet 1 packet Oral BID Jero Eric MD lactulose (Chronulac) (0.67 gram/mL) oral liquid 20 g 20 g Oral BID PRN Jero Eric MD polyethylene glycoL (Miralax) packet 17 g 17 g Oral BID Jero Eric MD No current [facility]-ordered outpatient medications on file. Family History: History reviewed. No pertinent family history. Social History: Social History Socioeconomic History Marital status: Spouse name: Not on file Number of children: Not on file Years of education: Not on file Highest education level: Not on file Occupational History Not on file Tobacco Use Smoking status: Every Day Types: e-Cigarettes Smokeless tobacco: Never Tobacco comments: using e cigarettes Vaping Use Vaping status: Every Day Start date: 12/19/2014 Substance and Sexual Activity Alcohol use: No Drug use: No Sexual activity: Not on file Other Topics Concern Not on file Social History Narrative Not on file Social Determinants of Health Financial Resource Strain: Not on file Food Insecurity: No Food Insecurity (05/10/2024) Hunger Vital Sign Worried About Running Out of Food in the Last Year: Never true Ran Out of Food in the Last Year: Never true Transportation Needs: No Transportation Needs (05/10/2024) PRAPARE - Transportation Lack of Transportation (Medical): No Lack of Transportation (Non-Medical): No Physical Activity: Not on file Intimate Partner Violence: Not At Risk (05/09/2024) DH IPV Inpatient Questions Prevent Contact with Others: no Feels Threatened by Someone: no Feels Unsafe at Home: no Physical Signs of Abuse Present: no Housing Stability: Low Risk (05/10/2024) Housing Stability Vital Sign Unable to Pay for Housing in the Last Year: No Number of Times Moved in the Last Year: 0 Homeless in the Last Year: No Physical Exam: Vital signs: Last value Range last 24 hrs Temperature Temp: 36.6 ??C (97.8 ??F) Temp: [36.6 ??C (97.8 ??F)-36.6 ??C (97.9 ??F)] Heart Rate Heart Rate: 66 Heart Rate: [61-72] Blood Pressure BP: 106/69 BP: (106-135)/(65-94) Respiratory Rate Resp: 16 Resp: [16] SpO2 SpO2: 97 % SpO2: [97 %-99 %] Physical Exam Constitutional: Comments: Body mass index is 24.8 kg/m??. HENT: Nose: No congestion. Cardiovascular: Rate and Rhythm: Normal rate. Rhythm irregular. Pulses: Normal pulses. Pulmonary: Effort: Pulmonary effort is normal. Skin: General: Skin is warm. Comments: Left sided ICD incision well healed Neurological: Mental Status: He is alert. ECG: Labs: Recent Results (from the past 24 hour(s)) POC, GLUCOSE Result Value Ref Range Glucometer, POC 163 65 - 199 mg/dL CBC (with Diff) Result Value Ref Range White Blood Cell 7.51 4.00 - 9.50 x10(3)/mcL Red Blood Cell 5.13 4.58 - 5.54 x10(6)/mcL Hemoglobin 14.9 13.7 - 16.5 g/dL Hematocrit 45.8 40.5 - 48.5 % Mean Cell Volume 89.3 82.9 - 93.1 fL Mean Cell Hemoglobin 29.0 27.5 - 32.1 pg Mean Cell Hemoglobin Concentration 32.5 32.0 - 35.7 g/dL Platelet 216 145 - 357 x10(3)/mcL Mean Platelet Volume 9.1 7.6 - 12.9 fL RDW Standard Deviation 42.0 36.0 - 45.0 fL RDW coefficient of variation 12.8 11.4 - 13.8 % NRBC% auto 0.0 % NRBC Absolute <0.01 <0.01 x10(3)/mcL Neutrophil % 50.3 % Neutrophil Absolute (ANC) - Automated 3.78 1.70 - 6.10 x10(3)/mcL Lymph % 32.5 % Lymph Absolute 2.44 0.90 - 3.20 x10(3)/mcL Monocyte % 7.2 % Monocyte Absolute 0.54 0.30 - 0.90 x10(3)/mcL Eos % 8.8 % Eos Absolute 0.66 (H) 0.00 - 0.40 x10(3)/mcL Basophil % 0.8 % Baso Absolute 0.06 0.00 - 0.10 x10(3)/mcL Immature Gran % 0.4 % Immature Gran Absolute <0.04 0.00 - 0.04 x10(3)/mcL Hemoglobin A1c Result Value Ref Range Hemoglobin A1c 8.6 (H) 4.3 - 5.6 % Estimated Average Glucose Comprehensive metabolic panel Result Value Ref Range Glucose 156 65 - 199 mg/dL Blood Urea Nitrogen 18 10 - 20 mg/dL Creatinine 0.92 0.80 - 1.50 mg/dL Sodium 140 135 - 145 mMol/L Potassium 4.6 3.5 - 5.0 mMol/L Chloride 105 98 - 107 mMol/L Carbon Dioxide 25 22 - 31 mMol/L Anion Gap 10 5 - 15 mMol/L Calcium 9.2 8.5 - 10.5 mg/dL Protein, Total 7.1 6.1 - 8.0 g/dL Albumin 4.1 3.2 - 5.2 g/dL Aspartate Aminotransferase 40 (H) <=39 unit/L Alanine Aminotransferase 42 0 - 55 unit/L Alkaline Phosphatase 61 40 - 130 unit/L Bilirubin, Total 0.3 <=1.3 mg/dL Est Glomerular Filtration Rate - Male 87 mL/min/1.73 m?? Magnesium Result Value Ref Range Magnesium 0.83 0.69 - 1.07 mMol/L Phosphorus Result Value Ref Range Phosphorus 2.9 2.5 - 4.5 mg/dL pro-Brain Natriuretic Peptide Result Value Ref Range NT-proBNP 1,065 (H) <=124 pg/mL TSH [place] Result Value Ref Range Thyroid Stimulating Hormone 0.63 0.27 - 4.20 mcIU/mL Prothrombin Time Result Value Ref Range Prothrombin Time 16.1 (H) 9.4 - 12.5 sec International Normalization Ratio 1.4 <=4.9 Troponin-T, High Sensitivity Result Value Ref Range Troponin-T, High Sensitivity Initial 13 <=22 ng/L Troponin-T, High Sensitivity 1 Hour Result Value Ref Range Troponin-T, High Sensitivity 13 <=22 ng/L Troponin-T, HS 1 hr delta 0 ng/L COVID-19 PCR Specimen: Nasopharynx; Swab Result Value Ref Range SARS-CoV-2 RNA (Rapid) Not Detected Not Detected Troponin-T, High Sensitivity 3 Hour Result Value Ref Range Troponin-T, High Sensitivity 15 <=22 ng/L Troponin-T, HS 3 hr delta 2 ng/L POC, GLUCOSE Result Value Ref Range Glucometer, POC 132 65 - 199 mg/dL Device Interrogation See below Battery - approximately 1 year VT at 144 bpm, had ATP x 10 (regular ATP and RAMP) and then 0.9 joule shock. AF/flutter since 05/09/2024 Assessment: Shahnaz Santiago is a 73 y.o. male with a history of paroxysmal atrial fibrillation and mmVT, dual chamber ICD. He has had no significant arrhythmia episodes in the last year, until 05/09 - AF/Flutter(atypical) and also 'slow' mmVT at 144 bpm. This was succesfully treated with 0.9 joules after 10 rounds of ATP failed to convert the rhythm. His symptoms of fatigue, LLOYD, malaise precede these events by about a month. Recommendations I agree with a non-invasive evaluation for ischemia. Keep NPO for a cardioversion tomorrow (has continued on Xarelto - do not hold) No reprogramming needed for the ICD at present Continue with uptitrated amiodarone and metoprolol Can follow up as an outpatient to consider AF or VT ablation; although he has done quite well on low dose amiodarone and with uptitration of his medications, this might not be necessary Device Interrogation * Plan of Care - Petey Adames RN - 05/09/2024 10:49 PM EST AAOX4 pleasant, calm, cooperative. Transfer from outside hospital. Able to make needs known. Encouraged to call for assistance. Patient ambulates independently. Blanchable redness on sacrum. No pain noted. Bed is locked and in lowest position. VSS on RA, no acute distress noted. Call light and personal items within reach. All personal items accounted for. Patient paced on monitor Problem: Adult Inpatient Plan of Care Goal: Plan of Care Review Outcome: Ongoing (Interventions Implemented as Appropriate) Goal: Patient-Specific Goal (Individualized) Outcome: Ongoing (Interventions Implemented as Appropriate) Goal: Absence of Hospital-Acquired Illness or Injury Outcome: Ongoing (Interventions Implemented as Appropriate) Goal: Optimal Comfort and Wellbeing Outcome: Ongoing (Interventions Implemented as Appropriate) Goal: Readiness for Transition of Care Outcome: Ongoing (Interventions Implemented as Appropriate) documented in this encounter Plan of Treatment Upcoming Encounters Date Type Department Care Team (Late st Contact Info) Description 06/15/2024 10:00 AM EST Hospital Encounter Non-Invasive [place] [address] Arrived 08/09/2024 10:00 AM EDT Hospital Encounter Non-Invasive [place] [address] Arrived documented as of this encounter Procedures Procedure Name Priority Date/Time Associated Diagnosis Comments ECG SCAN 05/17/2024 12:00 AM EST POC, GLUCOSE Routine 05/14/2024 2:52 PM EST POC, GLUCOSE Routine 05/14/2024 11:51 AM EST POC, GLUCOSE Routine 05/14/2024 7:56 AM EST POC, GLUCOSE Routine 05/14/2024 4:34 AM EST CBC (WITH DIFF) Routine 05/14/2024 2:21 AM EST MAGNESIUM Routine 05/14/2024 2:21 AM EST BASIC METABOLIC PANEL Routine 05/14/2024 2:21 AM EST POC, GLUCOSE Routine 05/14/2024 12:05 AM EST RESPIRATORY PANEL PCR Routine 05/13/2024 11:17 PM EST POC, GLUCOSE Routine 05/13/2024 10:46 PM EST POC, GLUCOSE Routine 05/13/2024 8:21 PM EST POC, GLUCOSE Routine 05/13/2024 4:11 PM EST POC, GLUCOSE Routine 05/13/2024 1:17 PM EST POC, GLUCOSE Routine 05/13/2024 12:03 PM EST POC, GLUCOSE Routine 05/13/2024 11:43 AM EST POC, GLUCOSE Routine 05/13/2024 7:15 AM EST CBC (WITH DIFF) Routine 05/13/2024 4:00 AM EST MAGNESIUM Routine 05/13/2024 4:00 AM EST BASIC METABOLIC PANEL Routine 05/13/2024 4:00 AM EST POC, GLUCOSE Routine 05/13/2024 3:59 AM EST EKG 12-LEAD STAT 05/12/2024 11:40 PM EST Persistent atrial fibrillation POC, GLUCOSE Routine 05/12/2024 11:05 PM EST POC, GLUCOSE Routine 05/12/2024 7:36 PM EST POC, GLUCOSE Routine 05/12/2024 5:21 PM EST MAGNESIUM Routine 05/12/2024 3:55 PM EST BASIC METABOLIC PANEL Routine 05/12/2024 3:55 PM EST POC, GLUCOSE Routine 05/12/2024 3:32 PM EST POC, GLUCOSE Routine 05/12/2024 11:57 AM EST POC, GLUCOSE Routine 05/12/2024 7:12 AM EST CBC (WITH DIFF) Routine 05/12/2024 3:19 AM EST MAGNESIUM Routine 05/12/2024 3:19 AM EST BASIC METABOLIC PANEL Routine 05/12/2024 3:19 AM EST POC, GLUCOSE Routine 05/12/2024 3:18 AM EST POC, GLUCOSE Routine 05/11/2024 11:16 PM EST POC, GLUCOSE Routine 05/11/2024 8:06 PM EST POC, GLUCOSE Routine 05/11/2024 4:54 PM EST POC, GLUCOSE Routine 05/11/2024 4:52 PM EST EKG 12-LEAD STAT 05/11/2024 12:40 PM EST Persistent atrial fibrillation Cardioversion Elective Arrhythmia External (88322) 05/11/2024 11:34 AM EST Afib/flutter POC, GLUCOSE Routine 05/11/2024 11:03 AM EST CARDIOVERSION-OR Routine 05/11/2024 10:5 4 AM EST CBC (WITH DIFF) Routine 05/11/2024 8:36 AM EST MAGNESIUM Routine 05/11/2024 8:36 AM EST BASIC METABOLIC PANEL Routine 05/11/2024 8:36 AM EST POC, GLUCOSE Routine 05/11/2024 7:12 AM EST U ALBUMIN/CRE RATIO Routine 05/11/2024 1 2:59 AM EST POC, GLUCOSE Routine 05/11/2024 12:47 AM EST POC, GLUCOSE Routine 05/10/2024 10:13 PM EST POC, GLUCOSE Routine 05/10/2024 8:55 PM EST POC, GLUCOSE Routine 05/10/2024 5:41 PM EST POC, GLUCOSE Routine 05/10/2024 12:17 PM EST ECHO COMPLETE W CONTRAST Routine 05/10/2024 9:34 AM EST Ventricular tachycardia Elevated troponin POC, GLUCOSE Routine 05/10/2024 7:07 AM EST TROPONIN-T, HIGH SENSITIVITY 3 HOUR PERFORMABLE DIAMOND 05/10/2024 3:56 AM EST RAPID COVID-19 PCR ([facility]) STAT 05/10/2024 1:48 AM EST TROPONIN-T, HIGH SENSITIVITY 1 HOUR PERFORMABLE DIAMOND 05/10/2024 1:17 AM EST EKG 12-LEAD STAT 05/10/2024 12:42 AM EST Ventricular tachycardia TROPONIN-T, HIGH SENSITIVITY INITIAL PERFORMABLE STAT 05/10/2024 12:21 AM EST TROPONIN - SERIES STAT 05/10/2024 12: 21 AM EST TSH CASCADE STAT 05/10/2024 12:21 AM EST PROTHROMBIN TIME STAT 05/10/2024 12:2 1 AM EST PHOSPHORUS STAT 05/10/2024 12:21 AM EST PRO-BRAIN NATRIURETIC PEPTIDE STAT 05/10/2024 12:21 AM EST MAGNESIUM STAT 05/10/2024 12:21 AM EST COMPREHENSIVE METABOLIC PANEL STAT 05/10/2024 12:21 AM EST CBC (WITH DIFF) STAT 05/10/2024 12:20 AM EST HEMOGLOBIN A1C Add-On 05/10/2024 12:20 AM EST POC, GLUCOSE Routine 05/09/2024 10:43 PM EST documented in this encounter Results * Scan Doc: ECG (05/17/2024 12:00 AM EST) Narrative 05/17/2024 12:00 AM EST Ordered by an unspecified provider. Scanning Provider MEDIA MGR SCAN EXT O RDR/RSLT * (ABNORMAL) POC, GLUCOSE (05/14/2024 2:52 PM EST) [facility] Signature Glucometer, POC 254(H) 65 - 199 mg/dL 05/14/2024 2:52 PM EST [facility] Comment:Supplemental ranges: <140 mg/dL before meals <180 mg/dL all other times of the day. Blood CAPILLARY BLOOD / Unknown 05/14/2024 2:52 PM EST 05/14/2024 2:52 PM EST Gordon Lynn MD POINT OF CARE TEST O RDERABLES [facility] [place] [address] * (ABNORMAL) POC, GLUCOSE (05/14/2024 11:51 AM EST) Glucometer, POC 279(H) 65 - 199 mg/dL 05/14/2024 11:52 AM EST [facility] Comment:Supplemental ranges: <140 mg/dL before meals <180 mg/dL all other times of the day. Blood CAPILLARY BLOOD / Unknown 05/14/2024 11:51 AM EST 05/14/2024 11:52 AM EST Gordon Lynn MD POINT OF CARE TEST O [place] Performing Organization Address City/[facility]/ZIP Co de Phone Number [facility] [place] [address] * POC, GLUCOSE (05/14/2024 7:56 AM EST) Glucometer, POC 174 65 - 199 mg/dL 05/14/2024 7:56 AM EST [facility] Comment:Supplemental ranges: <140 mg/dL before meals <180 mg/dL all other times of the day. Blood CAPILLARY BLOOD / Unknown 05/14/2024 7:56 AM EST 05/14/2024 7:57 AM EST Gordon Lynn MD POINT OF CARE TEST Catie BRADEN Performing Organization Address City/[facility]/ZIP Co de Phone Number [facility] [place] [address] * POC, GLUCOSE (05/14/2024 4:34 AM EST) Glucometer, POC 143 65 - 199 mg/dL 05/14/2024 4:35 AM EST [facility] Comment:Supplemental ranges: <140 mg/dL before meals <180 mg/dL all other times of the day. Blood CAPILLARY BLOOD / Unknown 05/14/2024 4:34 AM EST 05/14/2024 4:35 AM EST Gordon Lynn MD POINT OF CARE TEST O RDERABLES [facility] [place] [address] * Basic Metabolic Panel (05/14/2024 2:21 AM EST) Glucose 161 65 - 199 mg/dL 05/14/2024 3:09 AM [facility] Comment:Glucose Concentratio n >=200 mg/dL plus symptoms is consistent with Diabetes Mellitus. Blood Urea Nitrogen 19 10 - 20 mg/dL 05/14/2024 3:09 AM [facility] Creatinine 1.02 0.80 - 1.50 mg/dL 05/14/2024 3:09 AM [facility] Sodium 137 135 - 145 mMol/L 05/14/2024 3:09 AM [facility] Potassium 4.1 3.5 - 5.0 mMol/L 05/14/2024 3:09 AM [facility] Chloride 101 98 - 107 mMol/L 05/14/2024 3:09 AM [facility] Carbon Dioxide 24 22 - 31 mMol/L 05/14/2024 3:09 AM [facility] Anion Gap 12 5 - 15 mMol/L 05/14/2024 3:09 AM [facility] Calcium 9.1 8.5 - 10.5 mg/dL 05/14/2024 3:09 AM [facility] Est Glomerular Filtration Rate - Male 77 mL/min/1. 73 m?? 05/14/2024 3:09 AM [facility] Comment: This patient's estimated GFR was calculated using the 2020 CKD-EPI equation. The estimated GFR can vary from the measured GFR by up to 30% in the absence of rapidly changing kidney function. Assessment of the estimated GFR is not appropriate when creatinine concentrations are rapidly changing. For clinical situations in which a more precise estimate of GFR is necessary, consider alternative methods of GFR estimation such as a 24-hour urine creatinine clearance. Assignment of CKD stage 1 - 5 for patients with an eGFR near the transition point between stages may be based on clinical assessment of muscle mass and symptoms in addition to eGFR. Link: eGFR Calculator [employer] Blood VENOUS BLOOD SPECIMEN / Unknown Venipuncture / Unknown 05/14/2024 2:21 AM EST 05/14/2024 2:35 AM EST Gordon Lynn MD CHEMISTRY ORDERABLES [facility] [place] [address] * (ABNORMAL) CBC (with Diff) (05/14/2024 2:21 AM EST) White Blood Cell 7.96 4.00 - 9.50 x10(3)/mc L 05/14/2024 2:50 AM [facility] Red Blood Cell 4.53(L) 4.58 - 5.54 x10(6)/mc L 05/14/2024 2:50 AM [facility] Hemoglobin 13.4(L) 13.7 - 16.5 g/dL 05/14/2024 2:50 AM [facility] Hematocrit 39.7(L) 40.5 - 48.5 % 05/14/2024 2:50 AM [facility] Mean Cell Volume 87.6 82.9 - 93.1 fL 05/14/2024 2:50 AM [facility] Mean Cell Hemoglobin 29.6 27.5 - 32.1 pg 05/14/2024 2:50 AM [facility] Mean Cell Hemoglobin Concentration 33.8 32.0 - 35.7 g/dL 05/14/2024 2:50 AM [facility] Platelet 212 145 - 357 x10(3)/mc L 05/14/2024 2:50 AM [facility] Mean Platelet Volume 9.2 7.6 - 12.9 fL 05/14/2024 2:50 AM [facility] RDW Standard Deviation 41.4 36.0 - 45.0 fL 05/14/2024 2:50 AM [facility] RDW coefficient of variation 13.0 11.4 - 13.8 % 05/14/2024 2:50 AM [facility] NRBC% auto 0.0 % 05/14/2024 2:50 AM [facility] NRBC Absolute <0.01 <0.01 x10(3)/mc L 05/14/2024 2:50 AM [facility] Neutrophil % 54.2 % 05/14/2024 2:50 AM [facility] Neutrophil Absolute (ANC) - Automated 4.31 1.70 - 6.10 x10(3)/mc L 05/14/2024 2:50 AM [facility] Lymph % 28.1 % 05/14/2024 2:50 AM [facility] Lymph Absolute 2.24 0.90 - 3.20 x10(3)/mc L 05/14/2024 2:50 AM [facility] Monocyte % 8.5 % 05/14/2024 2:50 AM [facility] Monocyte Absolute 0.68 0.30 - 0.90 x10(3)/mc L 05/14/2024 2:50 AM [facility] Eos % 7.7 % 05/14/2024 2:50 AM [facility] Eos Absolute 0.61(H) 0.00 - 0.40 x10(3)/mc L 05/14/2024 2:50 AM [facility] Basophil % 0.9 % 05/14/2024 2:50 AM [facility] Baso Absolute 0.07 0.00 - 0.10 x10(3)/mc L 05/14/2024 2:50 AM [facility] Immature Gran % 0.6 % 2:50 AM [facility] Immature Gran Absolute 0.05(H) 0.00 - 0.04 x10(3)/mc L 05/14/2024 2:50 AM EST [facility] Blood VENOUS BLOOD SPECIMEN / Unknown Venipuncture / Unknown 05/14/2024 2:21 AM EST 05/14/2024 2:35 AM EST Gordon Lynn MD HEMATOLOGY ORDERABLE S Performing Organization Address [facility]/ZIP Co de Phone Number [facility] [place] [address] * Magnesium (05/14/2024 2:21 AM EST) Pathologist [facility] Magnesium 0.78 0.69 - 1.07 mMol/L 05/14/2024 3:09 AM EST [facility] Blood VENOUS BLOOD SPECIMEN / Unknown Venipuncture / Unknown 05/14/2024 2:21 AM EST 05/14/2024 2:35 AM EST Gordon Lynn MD CHEMISTRY ORDERABLES Performing Organization Address [facility] Co de Phone Number [facility] [place] [address] * POC, GLUCOSE (05/14/2024 12:05 AM EST) [facility] Glucometer, POC 192 65 - 199 mg/dL 05/14/2024 12:06 AM EST [facility] Comment:Supplemental ranges: <140 mg/dL before meals <180 mg/dL all other times of the day. Blood CAPILLARY BLOOD / Unknown 05/14/2024 12:05 AM EST 05/14/2024 12:06 AM EST Gordon Lynn MD POINT OF CARE TEST O RDERABLES Performing Organization Address City/[facility]/ZIP Co de Phone Number [facility] [place] [address] * Respiratory Panel PCR (05/13/2024 11:17 PM EST) [facility] Respiratory Panel PCR Negative Negative 05/14/2024 1:15 AM [facility] Adenovirus Not Detected Not Detected 05/14/2024 1:15 AM [facility] Coronavirus HKU1 Not Detected Not Detected 05/14/2024 1:15 AM [facility] Coronavirus NL63 Not Detected Not Detected 05/14/2024 1:15 AM [facility] Coronavirus 229E Not Detected Not Detected 05/14/2024 1:15 AM [facility] Coronavirus OC43 Not Detected Not Detected 05/14/2024 1:15 AM [facility] SARS-CoV-2 Not Detected Not Detected 05/14/2024 1:15 AM [facility] Human Metapneumovirus Not Detected Not Detected 05/14/2024 1:15 AM [facility] Human Rhinovirus/Enterov irus Not Detected Not Detected 05/14/2024 1:15 AM [facility] Influenza A Not Detected Not Detected 05/14/2024 1:15 AM [facility] Influenza B Not Detected Not Detected 05/14/2024 1:15 AM [facility] Parainfluenza 1 Not Detected Not Detected 05/14/2024 1:15 AM [facility] Parainfluenza 2 Not Detected Not Detected 05/14/2024 1:15 AM [facility] Parainfluenza 3 Not Detected Not Detected 05/14/2024 1:15 AM [facility] Parainfluenza 4 Not Detected Not Detected 05/14/2024 1:15 AM [facility] Respiratory Syncytial Virus Not Detected Not Detected 05/14/2024 1:15 AM [facility] Chlamydophila pneumoniae Not Detected Not Detected 05/14/2024 1:15 AM [facility] Mycoplasma pneumoniae Not Detected Not Detected 05/14/2024 1:15 AM [facility] Swab SPECIMEN FROM NASOPHARYNGEAL STRUCTURE / Unknown Non Blood Collection / Unknown 05/13/2024 11:17 PM EST 05/13/2024 11:33 PM EST Narrative [facility] - 05/14/2024 1:15 AM EST Respiratory Panels are performed on the VdopiaArray using multiplexed PCR nucleic acid detection. Negative results do not preclude respiratory infection and should not be used as the sole basis for diagnosis, treatment, or other management decisions. Rafael Zamora MD MICROBIOLOGY - GENE RAL ORDERABLES Performing Organization Address City/[facility]/ZIP Co de Phone Number [facility] [place] [address] * POC, GLUCOSE (05/13/2024 10:46 PM EST) Glucometer, POC 199 65 - 199 mg/dL 05/13/2024 10:47 PM EST [facility] Comment:Supplemental ranges: <140 mg/dL before meals <180 mg/dL all other times of the day. Blood CAPILLARY BLOOD / Unknown 05/13/2024 10:46 PM EST 05/13/2024 10:47 PM EST Gordon Lynn MD POINT OF CARE TEST Catie BRADEN Performing Organization Address City/[facility]/ZIP Co de Phone Number [facility] [place] [address] * (ABNORMAL) POC, GLUCOSE (05/13/2024 8:21 PM EST) Glucometer, POC 275(H) 65 - 199 mg/dL 05/13/2024 8:22 PM EST [facility] Comment:Supplemental ranges: <140 mg/dL before meals <180 mg/dL all other times of the day. Blood CAPILLARY BLOOD / Unknown 05/13/2024 8:21 PM EST 05/13/2024 8:22 PM EST Gordon Lynn MD POINT OF CARE TEST O RDMARY [facility] [place] [address] * (ABNORMAL) POC, GLUCOSE (05/13/2024 4:11 PM EST) Glucometer, POC 238(H) 65 - 199 mg/dL 05/13/2024 4:11 PM EST [facility] Comment:Supplemental ranges: <140 mg/dL before meals <180 mg/dL all other times of the day. Blood CAPILLARY BLOOD / Unknown 05/13/2024 4:11 PM EST 05/13/2024 4:11 PM EST Gordon Lynn MD POINT OF CARE TEST Catie BRADEN Performing Organization Address City/[facility]/ZIP Co de Phone Number [facility] [place] [address] * (ABNORMAL) POC, GLUCOSE (05/13/2024 1:17 PM EST) Glucometer, POC 386(H) 65 - 199 mg/dL 05/13/2024 1:18 PM EST [facility] Comment:Supplemental ranges: <140 mg/dL before meals <180 mg/dL all other times of the day. Blood CAPILLARY BLOOD / Unknown 05/13/2024 1:17 PM EST 05/13/2024 1:18 PM EST Gordon Lynn MD POINT OF CARE TEST O SAMPSON Performing Organization Address [facility] Co de Phone Number [facility] [place] [address] * (ABNORMAL) POC, GLUCOSE (05/13/2024 12:03 PM EST) Glucometer, POC 355(H) 65 - 199 mg/dL 05/13/2024 12:04 PM EST [facility] Comment:Supplemental ranges: <140 mg/dL before meals <180 mg/dL all other times of the day. Blood CAPILLARY BLOOD / Unknown 05/13/2024 12:03 PM EST 05/13/2024 12:04 PM EST Gordon Lynn MD POINT OF CARE TEST Catie BRADEN [facility] [place] [address] * (ABNORMAL) POC, GLUCOSE (05/13/2024 11:43 AM EST) Glucometer, POC 501(HHH) 65 - 199 mg/dL 05/13/2024 11:45 AM EST [facility] Comment:Supplemental ranges: <140 mg/dL before meals <180 mg/dL all other times of the day. Blood CAPILLARY BLOOD / Unknown 05/13/2024 11:43 AM EST 05/13/2024 11:45 AM EST Gordon Lynn MD POINT OF CARE TEST O SAMPSON Performing Organization Address City/[facility]/ZIP Co de Phone Number [facility] [place] [address] * POC, GLUCOSE (05/13/2024 7:15 AM EST) Glucometer, POC 171 65 - 199 mg/dL 05/13/2024 7:16 AM EST [facility] Comment:Supplemental ranges: <140 mg/dL before meals <180 mg/dL all other times of the day. Blood CAPILLARY BLOOD / Unknown 05/13/2024 7:15 AM EST 05/13/2024 7:16 AM EST Gordon Lynn MD POINT OF CARE TEST O SAMPSON Performing Organization Address City/[facility]/ZIP Co de Phone Number [facility] [place] [address] * (ABNORMAL) Basic Metabolic Panel (05/13/2024 4:00 AM EST) Glucose 147 65 - 199 mg/dL 05/13/2024 4:55 AM EST [facility] Comment:Glucose Concentratio n >=200 mg/dL plus symptoms is consistent with Diabetes Mellitus. Blood Urea Nitrogen 19 10 - 20 mg/dL 05/13/2024 4:55 AM EST [facility] Creatinine 0.96 0.80 - 1.50 mg/dL 05/13/2024 4:55 AM EST [facility] Sodium 138 135 - 145 mMol/L 05/13/2024 4:55 AM [facility] Potassium 4.9 3.5 - 5.0 mMol/L 05/13/2024 4:55 AM [facility] Chloride 103 98 - 107 mMol/L 05/13/2024 4:55 AM [facility] Carbon Dioxide 21(L) 22 - 31 mMol/L 05/13/2024 4:55 AM [facility] Anion Gap 14 5 - 15 mMol/L 05/13/2024 4:55 AM [facility] Calcium 9.0 8.5 - 10.5 mg/dL 05/13/2024 4:55 AM [facility] Est Glomerular Filtration Rate - Male 83 mL/min/1. 73 m?? 05/13/2024 4:55 AM [facility] Comment: This patient's estimated GFR was calculated using the 2020 CKD-EPI equation. The estimated GFR can vary from the measured GFR by up to 30% in the absence of rapidly changing kidney function. Assessment of the estimated GFR is not appropriate when creatinine concentrations are rapidly changing. For clinical situations in which a more precise estimate of GFR is necessary, consider alternative methods of GFR estimation such as a 24-hour urine creatinine clearance. Assignment of CKD stage 1 - 5 for patients with an eGFR near the transition point between stages may be based on clinical assessment of muscle mass and symptoms in addition to eGFR. Link: eGFR Calculator [employer] Blood VENOUS BLOOD SPECIMEN / Unknown Venipuncture / Unknown 05/13/2024 4:00 AM EST 05/13/2024 4:25 AM EST Gordon Lynn MD CHEMISTRY ORDERABLES [facility] [place] [address] * (ABNORMAL) CBC (with Diff) (05/13/2024 4:00 AM EST) White Blood Cell 7.81 4.00 - 9.50 x10(3)/mc L 05/13/2024 4:37 AM [facility] Red Blood Cell 4.71 4.58 - 5.54 x10(6)/mc L 05/13/2024 4:37 AM [facility] Hemoglobin 13.9 13.7 - 16.5 g/dL 05/13/2024 4:37 AM [facility] Hematocrit 41.9 40.5 - 48.5 % 05/13/2024 4:37 AM [facility] Mean Cell Volume 89.0 82.9 - 93.1 fL 05/13/2024 4:37 AM [facility] Mean Cell Hemoglobin 29.5 27.5 - 32.1 pg 05/13/2024 4:37 AM [facility] Mean Cell Hemoglobin Concentration 33.2 32.0 - 35.7 g/dL 05/13/2024 4:37 AM [facility] Platelet 200 145 - 357 x10(3)/mc L 05/13/2024 4:37 AM [facility] Mean Platelet Volume 9.3 7.6 - 12.9 fL 05/13/2024 4:37 AM [facility] RDW Standard Deviation 41.5 36.0 - 45.0 fL 05/13/2024 4:37 AM [facility] RDW coefficient of variation 12.8 11.4 - 13.8 % 05/13/2024 4:37 AM [facility] NRBC% auto 0.0 % 05/13/2024 4:37 AM [facility] NRBC Absolute <0.01 <0.01 x10(3)/mc L 05/13/2024 4:37 AM [facility] Neutrophil % 50.1 % 05/13/2024 4:37 AM [facility] Neutrophil Absolute (ANC) - Automated 3.91 1.70 - 6.10 x10(3)/mc L 05/13/2024 4:37 AM [facility] Lymph % 32.7 % 05/13/2024 4:37 AM [facility] Lymph Absolute 2.55 0.90 - 3.20 x10(3)/mc L 05/13/2024 4:37 AM [facility] Monocyte % 9.3 % 05/13/2024 4:37 AM [facility] Monocyte Absolute 0.73 0.30 - 0.90 x10(3)/mc L 05/13/2024 4:37 AM [facility] Eos % 6.8 % 05/13/2024 4:37 AM [facility] Eos Absolute 0.53(H) 0.00 - 0.40 x10(3)/mc L 05/13/2024 4:37 AM [facility] Basophil % 0.6 % 05/13/2024 4:37 AM [facility] Baso Absolute 0.05 0.00 - 0.10 x10(3)/mc L 05/13/2024 4:37 AM [facility] Immature Gran % 0.5 % 4:37 AM [facility] Immature Gran Absolute 0.04 0.00 - 0.04 x10(3)/mc L 05/13/2024 4:37 AM [facility] Blood VENOUS BLOOD SPECIMEN / Unknown Venipuncture / Unknown 05/13/2024 4:00 AM EST 05/13/2024 4:26 AM EST Gordon Lynn MD HEMATOLOGY ORDERABLE S [facility] [place] [address] * Magnesium (05/13/2024 4:00 AM EST) Magnesium 0.85 0.69 - 1.07 mMol/L 05/13/2024 4:55 AM [facility] Blood VENOUS BLOOD SPECIMEN / Unknown Venipuncture / Unknown 05/13/2024 4:00 AM EST 05/13/2024 4:25 AM EST Gordon Lynn MD CHEMISTRY ORDERABLES Performing Organization Address [facility] Co de Phone Number [facility] [place] [address] * POC, GLUCOSE (05/13/2024 3:59 AM EST) Pathologist [facility] Glucometer, POC 135 65 - 199 mg/dL 05/13/2024 4:12 AM EST [facility] Comment:Supplemental ranges: <140 mg/dL before meals <180 mg/dL all other times of the day. Blood CAPILLARY BLOOD / Unknown 05/13/2024 3:59 AM EST 05/13/2024 4:12 AM EST Gordon Lynn MD POINT OF CARE TEST O RDERABLES Performing Organization Address [facility] Co de Phone Number [facility] [place] [address] * EKG 12 Lead (05/12/2024 11:40 PM EST) [facility] Ventricular rate 62 BPM MUSE SYSTEM Atrial Rate 62 BPM MUSE SYSTEM P-R Interval 300 ms MUSE SYSTEM QRS Duration 140 ms MUSE SYSTEM Q-T Interval 490 ms MUSE SYSTEM QTC Calculated (Bezet) 497 ms MUSE SYSTEM Calculated P Anson 64 degrees MUSE SYSTEM Calculated R Anson -62 degrees MUSE SYSTEM Calculated T Anson -18 degrees MUSE SYSTEM INTERPRETATION Atrial-paced rhythm with prolonged AV conduction Occasional ventricular-pac ed complexes Left axis deviation Non-specific intra-ventricul ar conduction block Minimal voltage criteria for LVH, may be normal variant ( [place] product ) Inferior infarct , age undetermined Abnormal ECG When compared with ECG of 11-MAY-2024 12:40, ventricular-pac ed complexes are now present Confirmed by MD Thanh, Anamika ([id number]) on 05/13/2024 3:00:54 PM MUSE SYSTEM 05/12/2024 11:4 0 PM EST 05/13/2024 3:00 PM EST Jero Eric MD ECG ORDERABL ES Performing Organization Address City/[facility]/ZIP Co de Phone Number MUSE SYSTEM * POC, GLUCOSE (05/12/2024 11:05 PM EST) Glucometer, POC 122 65 - 199 mg/dL 05/12/2024 11:05 PM EST [facility] Comment:Supplemental ranges: <140 mg/dL before meals <180 mg/dL all other times of the day. Blood CAPILLARY BLOOD / Unknown 05/12/2024 11:05 PM EST 05/12/2024 11:05 PM EST Gordon Lynn MD POINT OF CARE TEST O RDERALOREE Performing Organization Address [facility] Co de Phone Number [facility] [place] [address] * (ABNORMAL) POC, GLUCOSE (05/12/2024 7:36 PM EST) Glucometer, POC 307(H) 65 - 199 mg/dL 05/12/2024 7:36 PM EST [facility] Comment:Supplemental ranges: <140 mg/dL before meals <180 mg/dL all other times of the day. Blood CAPILLARY BLOOD / Unknown 05/12/2024 7:36 PM EST 05/12/2024 7:36 PM EST Gordon Lynn MD POINT OF CARE TEST O SAMPSON Performing Organization Address City/[facility] Co de Phone Number [facility] [place] [address] * (ABNORMAL) POC, GLUCOSE (05/12/2024 5:21 PM EST) Glucometer, POC 341(H) 65 - 199 mg/dL 05/12/2024 5:21 PM EST [facility] Comment:Supplemental ranges: <140 mg/dL before meals <180 mg/dL all other times of the day. Blood CAPILLARY BLOOD / Unknown 05/12/2024 5:21 PM EST 05/12/2024 5:21 PM EST Gordon Lynn MD POINT OF CARE TEST O RDERABLES [facility] [place] [address] * Magnesium (05/12/2024 3:55 PM EST) Magnesium 0.77 0.69 - 1.07 mMol/L 05/12/2024 4:42 PM [facility] Blood VENOUS BLOOD SPECIMEN / Unknown Venipuncture / Unknown 05/12/2024 3:55 PM EST 05/12/2024 4:04 PM EST Gordon Lynn MD CHEMISTRY ORDERABLES Performing Organization Address [facility]/ZIP Co de Phone Number [facility] [place] [address] * (ABNORMAL) Basic Metabolic Panel (05/12/2024 3:55 PM EST) Glucose 367(H) 65 - 199 mg/dL 05/12/2024 5:02 PM EST [facility] Comment: Glucose Concentration >=200 mg/dL plus symptoms is consistent with Diabetes Mellitus. Repeated and verified. Blood Urea Nitrogen 21(H) 10 - 20 mg/dL 05/12/2024 5:02 PM [facility] Creatinine 1.08 0.80 - 1.50 mg/dL 05/12/2024 5:02 PM [facility] Sodium 133(L) 135 - 145 mMol/L 05/12/2024 5:02 PM [facility] Potassium 4.3 3.5 - 5.0 mMol/L 05/12/2024 5:02 PM [facility] Chloride 98 98 - 107 mMol/L 05/12/2024 5:02 PM [facility] Carbon Dioxide 20(L) 22 - 31 mMol/L 05/12/2024 5:02 PM [facility] Anion Gap 15 5 - 15 mMol/L 05/12/2024 5:02 PM EST [facility] Calcium 8.9 8.5 - 10.5 mg/dL 05/12/2024 5:02 PM EST [facility] Est Glomerular Filtration Rate - Male 72 mL/min/1. 73 m?? 05/12/2024 5:02 PM EST [facility] Comment: This patient's estimated GFR was calculated using the 2020 CKD-EPI equation. The estimated GFR can vary from the measured GFR by up to 30% in the absence of rapidly changing kidney function. Assessment of the estimated GFR is not appropriate when creatinine concentrations are rapidly changing. For clinical situations in which a more precise estimate of GFR is necessary, consider alternative methods of GFR estimation such as a 24-hour urine creatinine clearance. Assignment of CKD stage 1 - 5 for patients with an eGFR near the transition point between stages may be based on clinical assessment of muscle mass and symptoms in addition to eGFR. Link: eGFR Calculator [employer] Blood VENOUS BLOOD SPECIMEN / Unknown Venipuncture / Unknown 05/12/2024 3:55 PM EST 05/12/2024 4:04 PM EST Gordon Lynn MD CHEMISTRY ORDERABLES Performing Organization Address [facility]/ZIP Co de Phone Number [facility] [place] [address] * (ABNORMAL) POC, GLUCOSE (05/12/2024 3:32 PM EST) [facility] Signature Glucometer, POC 315(H) 65 - 199 mg/dL 05/12/2024 3:33 PM EST [facility] Comment:Supplemental ranges: <140 mg/dL before meals <180 mg/dL all other times of the day. Blood CAPILLARY BLOOD / Unknown 05/12/2024 3:32 PM EST 05/12/2024 3:33 PM EST Gordon Lynn MD POINT OF CARE TEST O RDERABLES Performing Organization Address City/[facility]/ZIP Co de Phone Number [facility] [place] [address] * (ABNORMAL) POC, GLUCOSE (05/12/2024 11:57 AM EST) Glucometer, POC 212(H) 65 - 199 mg/dL 05/12/2024 11:57 AM EST [facility] Comment:Supplemental ranges: <140 mg/dL before meals <180 mg/dL all other times of the day. Blood CAPILLARY BLOOD / Unknown 05/12/2024 11:57 AM EST 05/12/2024 11:57 AM EST Gordon Lynn MD POINT OF CARE TEST O RDERALOREE Performing Organization Address City/[facility]/ZIP Co de Phone Number [facility] [place] [address] * POC, GLUCOSE (05/12/2024 7:12 AM EST) Glucometer, POC 136 65 - 199 mg/dL 05/12/2024 7:12 AM EST [facility] Comment:Supplemental ranges: <140 mg/dL before meals <180 mg/dL all other times of the day. Blood CAPILLARY BLOOD / Unknown 05/12/2024 7:12 AM EST 05/12/2024 7:12 AM EST Gordon Lynn MD POINT OF CARE TEST O RDERABLES [facility] [place] [address] * (ABNORMAL) Basic Metabolic Panel (05/12/2024 3:19 AM EST) Glucose 111 65 - 199 mg/dL 05/12/2024 4:09 AM EST [facility] Comment:Glucose Concentratio n >=200 mg/dL plus symptoms is consistent with Diabetes Mellitus. Blood Urea Nitrogen 23(H) 10 - 20 mg/dL 05/12/2024 4:09 AM EST [facility] Creatinine 1.15 0.80 - 1.50 mg/dL 05/12/2024 4:09 AM [facility] Sodium 138 135 - 145 mMol/L 05/12/2024 4:09 AM [facility] Potassium 4.5 3.5 - 5.0 mMol/L 05/12/2024 4:09 AM [facility] Chloride 101 98 - 107 mMol/L 05/12/2024 4:09 AM [facility] Carbon Dioxide 25 22 - 31 mMol/L 05/12/2024 4:09 AM [facility] Anion Gap 12 5 - 15 mMol/L 05/12/2024 4:09 AM [facility] Calcium 9.3 8.5 - 10.5 mg/dL 05/12/2024 4:09 AM [facility] Est Glomerular Filtration Rate - Male 67 mL/min/1. 73 m?? 05/12/2024 4:09 AM [facility] Comment: This patient's estimated GFR was calculated using the 2020 CKD-EPI equation. The estimated GFR can vary from the measured GFR by up to 30% in the absence of rapidly changing kidney function. Assessment of the estimated GFR is not appropriate when creatinine concentrations are rapidly changing. For clinical situations in which a more precise estimate of GFR is necessary, consider alternative methods of GFR estimation such as a 24-hour urine creatinine clearance. Assignment of CKD stage 1 - 5 for patients with an eGFR near the transition point between stages may be based on clinical assessment of muscle mass and symptoms in addition to eGFR. Link: eGFR Calculator [employer] Blood VENOUS BLOOD SPECIMEN / Unknown Venipuncture / Unknown 05/12/2024 3:19 AM EST 05/12/2024 3:40 AM EST Gordon Lynn MD CHEMISTRY ORDERABLES [facility] [place] [address] * (ABNORMAL) CBC (with Diff) (05/12/2024 3:19 AM EST) White Blood Cell 6.92 4.00 - 9.50 x10(3)/mc L 05/12/2024 3:52 AM [facility] Red Blood Cell 4.78 4.58 - 5.54 x10(6)/mc L 05/12/2024 3:52 AM [facility] Hemoglobin 14.3 13.7 - 16.5 g/dL 05/12/2024 3:52 AM [facility] Hematocrit 42.3 40.5 - 48.5 % 05/12/2024 3:52 AM [facility] Mean Cell Volume 88.5 82.9 - 93.1 fL 05/12/2024 3:52 AM [facility] Mean Cell Hemoglobin 29.9 27.5 - 32.1 pg 05/12/2024 3:52 AM [facility] Mean Cell Hemoglobin Concentration 33.8 32.0 - 35.7 g/dL 05/12/2024 3:52 AM [facility] Platelet 195 145 - 357 x10(3)/mc L 05/12/2024 3:52 AM [facility] Mean Platelet Volume 9.2 7.6 - 12.9 fL 05/12/2024 3:52 AM [facility] RDW Standard Deviation 41.9 36.0 - 45.0 fL 05/12/2024 3:52 AM [facility] RDW coefficient of variation 13.0 11.4 - 13.8 % 05/12/2024 3:52 AM [facility] NRBC% auto 0.0 % 05/12/2024 3:52 AM [facility] NRBC Absolute <0.01 <0.01 x10(3)/mc L 05/12/2024 3:52 AM [facility] Neutrophil % 45.0 % 05/12/2024 3:52 AM [facility] Neutrophil Absolute (ANC) - Automated 3.12 1.70 - 6.10 x10(3)/mc L 05/12/2024 3:52 AM [facility] Lymph % 37.3 % 05/12/2024 3:52 AM EST [facility] Lymph Absolute 2.58 0.90 - 3.20 x10(3)/mc L 05/12/2024 3:52 AM [facility] Monocyte % 8.7 % 05/12/2024 3:52 AM [facility] Monocyte Absolute 0.60 0.30 - 0.90 x10(3)/mc L 05/12/2024 3:52 AM EST [facility] Eos % 7.7 % 05/12/2024 3:52 AM [facility] Eos Absolute 0.53(H) 0.00 - 0.40 x10(3)/mc L 05/12/2024 3:52 AM [facility] Basophil % 0.7 % 05/12/2024 3:52 AM [facility] Baso Absolute 0.05 0.00 - 0.10 x10(3)/mc L 05/12/2024 3:52 AM [facility] Immature Gran % 0.6 % 3:52 AM [facility] Immature Gran Absolute 0.04 0.00 - 0.04 x10(3)/mc L 05/12/2024 3:52 AM [facility] Blood VENOUS BLOOD SPECIMEN / Unknown Venipuncture / Unknown 05/12/2024 3:19 AM EST 05/12/2024 3:40 AM EST Gordon Lynn MD HEMATOLOGY ORDERABLE S [facility] [place] [address] * Magnesium (05/12/2024 3:19 AM EST) Magnesium 0.80 0.69 - 1.07 mMol/L 05/12/2024 4:09 AM [facility] Blood VENOUS BLOOD SPECIMEN / Unknown Venipuncture / Unknown 05/12/2024 3:19 AM EST 05/12/2024 3:40 AM EST Gordon Lynn MD CHEMISTRY ORDERABLES Performing Organization Address [facility] Co de Phone Number [facility] [place] [address] * POC, GLUCOSE (05/12/2024 3:18 AM EST) Glucometer, POC 104 65 - 199 mg/dL 05/12/2024 3:18 AM EST [facility] Comment:Supplemental ranges: <140 mg/dL before meals <180 mg/dL all other times of the day. Blood CAPILLARY BLOOD / Unknown 05/12/2024 3:18 AM EST 05/12/2024 3:18 AM EST Gordon Lynn MD POINT OF CARE TEST O RDERABLES Performing Organization Address [facility] de Phone Number [facility] [place] [address] * POC, GLUCOSE (05/11/2024 11:16 PM EST) Glucometer, POC 192 65 - 199 mg/dL 05/11/2024 11:16 PM EST [facility] Comment:Supplemental ranges: <140 mg/dL before meals <180 mg/dL all other times of the day. Blood CAPILLARY BLOOD / Unknown 05/11/2024 11:16 PM EST 05/11/2024 11:16 PM EST Gordon Lynn MD POINT OF CARE TEST O RDERALOREE Performing Organization Address [facility] Co de Phone Number [facility] [place] [address] * (ABNORMAL) POC, GLUCOSE (05/11/2024 8:06 PM EST) Glucometer, POC 304(H) 65 - 199 mg/dL 05/11/2024 8:07 PM EST [facility] Comment:Supplemental ranges: <140 mg/dL before meals <180 mg/dL all other times of the day. Blood CAPILLARY BLOOD / Unknown 05/11/2024 8:06 PM EST 05/11/2024 8:07 PM EST Gordon Lynn MD POINT OF CARE TEST O [place] Performing Organization Address [facility] Co de Phone Number [facility] [place] [address] * (ABNORMAL) POC, GLUCOSE (05/11/2024 4:54 PM EST) Glucometer, POC 297(H) 65 - 199 mg/dL 05/11/2024 4:54 PM EST [facility] Comment:Supplemental ranges: <140 mg/dL before meals <180 mg/dL all other times of the day. Blood CAPILLARY BLOOD / Unknown 05/11/2024 4:54 PM EST 05/11/2024 4:54 PM EST Gordon Lynn MD POINT OF CARE TEST O SAM[place] Performing Organization Address [facility] Co de Phone Number [facility] [place] [address] * (ABNORMAL) POC, GLUCOSE (05/11/2024 4:52 PM EST) Glucometer, POC 346(H) 65 - 199 mg/dL 05/11/2024 4:54 PM EST [facility] Comment:Supplemental ranges: <140 mg/dL before meals <180 mg/dL all other times of the day. Blood CAPILLARY BLOOD / Unknown 05/11/2024 4:52 PM EST 05/11/2024 4:54 PM EST Gordon Lynn MD POINT OF CARE TEST O RDERALOREE Performing Organization Address City/[facility] Co de Phone Number [facility] [place] [address] * EKG 12 Lead (05/11/2024 12:40 PM EST) Ventricular rate 60 BPM MUSE SYSTEM Atrial Rate 60 BPM MUSE SYSTEM P-R Interval 294 ms MUSE SYSTEM QRS Duration 118 ms MUSE SYSTEM Q-T Interval 454 ms MUSE SYSTEM QTC Calculated (Bezet) 454 ms MUSE SYSTEM Calculated R Anson -65 degrees MUSE SYSTEM Calculated T Anson -4 degrees MUSE SYSTEM INTERPRETATION Atrial-paced rhythm with prolonged AV conduction Left axis deviation Inferior infarct , age undetermined Anterolateral infarct , age undetermined Abnormal ECG When compared with ECG of 10-MAY-2024 00:42, Electronic atrial pacemaker has replaced Electronic ventricular pacemaker Confirmed by Lauri Reddy MD ([id number]) on 05/11/2024 6:19:56 PM MUSE SYSTEM 05/11/2024 12:4 0 PM EST 05/11/2024 6:19 PM EST Frank Hand MD ECG ORDERABLES Performing Organization Address City/[facility]/ZIP Co de Phone Number MUSE SYSTEM * POC, GLUCOSE (05/11/2024 11:03 AM EST) Glucometer, POC 173 65 - 199 mg/dL 05/11/2024 11:03 AM EST [facility] Comment:Supplemental ranges: <140 mg/dL before meals <180 mg/dL all other times of the day. Blood CAPILLARY BLOOD / Unknown 05/11/2024 11:03 AM EST 05/11/2024 11:03 AM EST Gordon Lynn MD POINT OF CARE TEST O RDERABLES [facility] [place] [address] * Magnesium (05/11/2024 8:36 AM EST) Magnesium 0.77 0.69 - 1.07 mMol/L 05/11/2024 9:27 AM EST [facility] Blood VENOUS BLOOD SPECIMEN / Unknown Venipuncture / Unknown 05/11/2024 8:36 AM EST 05/11/2024 8:46 AM EST Gordon Lynn MD CHEMISTRY ORDERABLES [facility] [place] [address] * (ABNORMAL) Basic Metabolic Panel (05/11/2024 8:36 AM EST) Glucose 183 65 - 199 mg/dL 05/11/2024 9:27 AM [facility] Comment:Glucose Concentratio n >=200 mg/dL plus symptoms is consistent with Diabetes Mellitus. Blood Urea Nitrogen 22(H) 10 - 20 mg/dL 05/11/2024 9:27 AM [facility] Creatinine 1.05 0.80 - 1.50 mg/dL 05/11/2024 9:27 AM [facility] Sodium 138 135 - 145 mMol/L 05/11/2024 9:27 AM [facility] Potassium 4.0 3.5 - 5.0 mMol/L 05/11/2024 9:27 AM [facility] Chloride 102 98 - 107 mMol/L 05/11/2024 9:27 AM [facility] Carbon Dioxide 22 22 - 31 mMol/L 05/11/2024 9:27 AM [facility] Anion Gap 14 5 - 15 mMol/L 05/11/2024 9:27 AM [facility] Calcium 9.3 8.5 - 10.5 mg/dL 05/11/2024 9:27 AM [facility] Est Glomerular Filtration Rate - Male 74 mL/min/1. 73 m?? 05/11/2024 9:27 AM [facility] Comment: This patient's estimated GFR was calculated using the 2020 CKD-EPI equation. The estimated GFR can vary from the measured GFR by up to 30% in the absence of rapidly changing kidney function. Assessment of the estimated GFR is not appropriate when creatinine concentrations are rapidly changing. For clinical situations in which a more precise estimate of GFR is necessary, consider alternative methods of GFR estimation such as a 24-hour urine creatinine clearance. Assignment of CKD stage 1 - 5 for patients with an eGFR near the transition point between stages may be based on clinical assessment of muscle mass and symptoms in addition to eGFR. Link: eGFR Calculator [employer] Blood VENOUS BLOOD SPECIMEN / Unknown Venipuncture / Unknown 05/11/2024 8:36 AM EST 05/11/2024 8:46 AM EST Gordon Lynn MD CHEMISTRY ORDERABLES [facility] [place] [address] * (ABNORMAL) CBC (with Diff) (05/11/2024 8:36 AM EST) White Blood Cell 9.51(H) 4.00 - 9.50 x10(3)/mc L 05/11/2024 9:00 AM [facility] Red Blood Cell 5.42 4.58 - 5.54 x10(6)/mc L 05/11/2024 9:00 AM [facility] Hemoglobin 15.9 13.7 - 16.5 g/dL 05/11/2024 9:00 AM [facility] Hematocrit 46.9 40.5 - 48.5 % 05/11/2024 9:00 AM [facility] Mean Cell Volume 86.5 82.9 - 93.1 fL 05/11/2024 9:00 AM [facility] Mean Cell Hemoglobin 29.3 27.5 - 32.1 pg 05/11/2024 9:00 AM [facility] Mean Cell Hemoglobin Concentration 33.9 32.0 - 35.7 g/dL 05/11/2024 9:00 AM [facility] Platelet 224 145 - 357 x10(3)/mc L 05/11/2024 9:00 AM [facility] Mean Platelet Volume 9.1 7.6 - 12.9 fL 05/11/2024 9:00 AM [facility] RDW Standard Deviation 40.2 36.0 - 45.0 fL 05/11/2024 9:00 AM [facility] RDW coefficient of variation 12.9 11.4 - 13.8 % 05/11/2024 9:00 AM [facility] NRBC% auto 0.0 % 05/11/2024 9:00 AM [facility] NRBC Absolute <0.01 <0.01 x10(3)/mc L 05/11/2024 9:00 AM [facility] Neutrophil % 45.5 % 05/11/2024 9:00 AM [facility] Neutrophil Absolute (ANC) - Automated 4.33 1.70 - 6.10 x10(3)/mc L 05/11/2024 9:00 AM [facility] Lymph % 38.4 % 05/11/2024 9:00 AM [facility] Lymph Absolute 3.65(H) 0.90 - 3.20 x10(3)/mc L 05/11/2024 9:00 AM [facility] Monocyte % 7.4 % 05/11/2024 9:00 AM [facility] Monocyte Absolute 0.70 0.30 - 0.90 x10(3)/mc L 05/11/2024 9:00 AM [facility] Eos % 7.5 % 05/11/2024 9:00 AM [facility] Eos Absolute 0.71(H) 0.00 - 0.40 x10(3)/mc L 05/11/2024 9:00 AM [facility] Basophil % 0.7 % 05/11/2024 9:00 AM [facility] Baso Absolute 0.07 0.00 - 0.10 x10(3)/mc L 05/11/2024 9:00 AM [facility] Immature Gran % 0.5 % 9:00 AM [facility] Immature Gran Absolute 0.05(H) 0.00 - 0.04 x10(3)/mc L 05/11/2024 9:00 AM [facility] Blood VENOUS BLOOD SPECIMEN / Unknown Venipuncture / Unknown 05/11/2024 8:36 AM EST 05/11/2024 8:46 AM EST Gordon Lynn MD HEMATOLOGY ORDERABLE S Performing Organization Address [facility]/ZIP Co de Phone Number [facility] [place] [address] * POC, GLUCOSE (05/11/2024 7:12 AM EST) Glucometer, POC 154 65 - 199 mg/dL 05/11/2024 7:13 AM EST [facility] Comment:Supplemental ranges: <140 mg/dL before meals <180 mg/dL all other times of the day. Blood CAPILLARY BLOOD / Unknown 05/11/2024 7:12 AM EST 05/11/2024 7:13 AM EST Gordon Lynn MD POINT OF CARE TEST O RDERABLES Performing Organization Address [facility]/ZIP Co de Phone Number [facility] [place] [address] * U Albumin/Cre Ratio (05/11/2024 12:59 AM EST) Albumin, Urine 45.7 mg/L 05/11/2024 1:46 AM EST [facility] Creatinine, Urine 155 mg/dL 025 1:46 AM [facility] Albumin / Creatinine Ratio, Urine 29 0 - 29 mcg/mg Cr 05/11/2024 1:46 AM [facility] Comment: Reference Ranges: ?? <30 mcg/mg: Normal ?? 30-300 mcg/mg: Moderately increased albuminuria.* ?? >300 mcg/mg: Severely increased albuminuria. ?? * ACEI or ARB recommended if diabetic; suggested if BP>130/80 without diabetes ?? ACEI or ARB strongly recommended if diabetic; recommended if BP>130/80 without diabetes ??Two of three specimens collected within a 3 to 6 month period should be abnormal before considering a patient to have albuminuria. Transient causes: exercise, fever, infection, CHF, marked hyperglycemia or hypertension. Persistent albuminuria indicates CKD and is an independent risk factor for ASCVD. ??ADA Standards of Medical Care in Diabetes-2016; KDIGO: Kidney International Supplements (2012) 2 ??[phone] Urine URINE SPECIMEN / Unknown Non Blood Collection / Unknown 05/11/2024 12:59 AM EST 05/11/2024 1:11 AM EST Jero Eric MD URINE ORDERA BLES Performing Organization Address [facility] Co de Phone Number [facility] [place] [address] * POC, GLUCOSE (05/11/2024 12:47 AM EST) Glucometer, POC 167 65 - 199 mg/dL 05/11/2024 12:48 AM EST [facility] Comment:Supplemental ranges: <140 mg/dL before meals <180 mg/dL all other times of the day. Blood CAPILLARY BLOOD / Unknown 05/11/2024 12:47 AM EST 05/11/2024 12:48 AM EST Gordon Lynn MD POINT OF CARE TEST Catie BRADEN Performing Organization Address [facility] de Phone Number [facility] [place] [address] * (ABNORMAL) POC, GLUCOSE (05/10/2024 10:13 PM EST) Glucometer, POC 323(H) 65 - 199 mg/dL 05/10/2024 10:13 PM EST [facility] Comment:Supplemental ranges: <140 mg/dL before meals <180 mg/dL all other times of the day. Blood CAPILLARY BLOOD / Unknown 05/10/2024 10:13 PM EST 05/10/2024 10:13 PM EST Gordon Lynn MD POINT OF CARE TEST O [place] Performing Organization Address [facility]/State/ZIP Co de Phone Number [facility] [place] [address] * (ABNORMAL) POC, GLUCOSE (05/10/2024 8:55 PM EST) Glucometer, POC 338(H) 65 - 199 mg/dL 05/10/2024 8:56 PM EST [facility] Comment:Supplemental ranges: <140 mg/dL before meals <180 mg/dL all other times of the day. Blood CAPILLARY BLOOD / Unknown 05/10/2024 8:55 PM EST 05/10/2024 8:56 PM EST Gordon Lynn MD POINT OF CARE TEST O RDERALOREE Performing Organization Address City/[facility]/ZIP Co de Phone Number [facility] [place] [address] * (ABNORMAL) POC, GLUCOSE (05/10/2024 5:41 PM EST) Glucometer, POC 289(H) 65 - 199 mg/dL 05/10/2024 5:41 PM EST [facility] Comment:Supplemental ranges: <140 mg/dL before meals <180 mg/dL all other times of the day. Blood CAPILLARY BLOOD / Unknown 05/10/2024 5:41 PM EST 05/10/2024 5:41 PM EST Gordon Lynn MD POINT OF CARE TEST O [place] [facility] [place] [address] * POC, GLUCOSE (05/10/2024 12:17 PM EST) Glucometer, POC 163 65 - 199 mg/dL 05/10/2024 12:17 PM EST [facility] Comment:Supplemental ranges: <140 mg/dL before meals <180 mg/dL all other times of the day. Blood CAPILLARY BLOOD / Unknown 05/10/2024 12:17 PM EST 05/10/2024 12:17 PM EST Gordon Lynn MD POINT OF CARE TEST O RDERABLES [facility] [place] [address] * ECHO COMPLETE W CONTRAST (05/10/2024 9:34 AM EST) EF 47 HEARTLAB SYSTEM Anatomical Region Laterality Modality Cardiac Other 05/10/2024 8:10 AM EST Narrative 05/10/2024 10:21 AM EST ? Version [address] [place] [address] ? Echocardiogram Report Name: AMIESHAHNAZ ESQUIVEL Evan ? Study Date: 05/10/2024 08:10 AMBP: 106/69 mmHg : 1950 ? Height: 185 cm ? Account: [id number] Age: 73 yrs ? Weight: 85 kg Gender: Male ?BSA: 2.1 m2 Ordering Physician: JERO ERIC Referring Physician: SHAD Performed By: Magda Perez Reason For Study: Ventricular tachycardia; Elevated troponin Exam Location: [facility]. Interpretation Summary 1. Milldy increased left ventriclar wall thickness, normal chamber size and mildly reduced systolic function with beat to beat variability. The left ventricular ejection fraction is 47% by Paz's biplane. Hypokinesis of the inferior wall. Also, abnormal septal motion associated with pacemaker activity. 2. Normal right ventricular size and systolic function. There is a CIED lead in the right ventricle. 3. Mild mitral regurgitation. Trace aortic regurgitation. Compared to 11/06/2016: No major changes, EF remains in the same range. Procedure Complete-63322. Image enhancement Optison was used for left ventricular opacification. Suboptimal quality. Left Ventricle Left ventricle is of normal size. Mildly increased thickness of the basal septum with no obstruction to LV outflow. There is no ventricular septal defect. Left ventricular systolic function is mildly reduced. The left ventricular ejection fraction is 47% by Paz's biplane. There is abnormal septal motion associated with pacemaker activity. There are segmental wall motion abnormalities. Right Ventricle There is a CIED lead in the right ventricle. The right ventricle is probably normal in size. Left Atrium The left atrium is normal. The interatrial septum is not well visualized. Right Atrium A pacemaker lead is present in the right atrium. The right atrium is normal. Aortic Valve The aortic valve is mildly thickened. The aortic valve is tricuspid. There is no aortic stenosis. There is trace aortic regurgitation. Mitral Valve The mitral valve is structurally and functionally normal. There is mild mitral regurgitation. Tricuspid Valve The tricuspid valve is not well visualized. There is trace tricuspid regurgitation. Pulmonic Valve The pulmonic valve appears to be structurally and functionally normal. There is trace pulmonic valve regurgitation. Great Arteries The diameter at the level of the sinuses of Valsalva is 3.5 cm. The maximum diameter of the proximal ascending aorta is 3.8 cm. The pulmonary artery is not well visualized. Venous Inferior vena cava collapse greater than 50% with respiration. Inferior vena cava is not well visualized. Pericardium/Pleural There is no pericardial effusion. A pericardial fat pad is present. Hemodynamics Pulmonary artery hypertension could not be assessed due to inadequate tricuspid regurgitation jet. Left ventricular diastolic function is abnormal. There is Grade I LV diastolic dysfunction (abnormal relaxation with normal left ventricular filling pressure). Ejection Fraction ?2D Measurements ? Volumes EF(MOD-bp): 46.6 % ?IVSd: 1.0 cm ? LAV(MOD- bp) Indexed: ?LVIDd: 5.5 cm ?LVIDs: 4.4 cm ?28.7 ml/m2 ?LVPWd: 0.97 cm ? RA A4Cs_phl: 18.4 cm2 ? EDV(MOD-bp) Indexed: ?RWT: 0.35 {ratio} ?LV mass(C)d: 217.5 grams ? 53.0 ml/m2 ?LV mass(C)dI: 104.1 grams/m2 ?? ESV(MOD- bp) Indexed: ?Ao root diam: 3.5 cm ? 28.3 ml/m2 ?Ao root diam index: 1.7 ?asc Aorta Diam: 3.8 cm Doppler MV E max maco: 67.4 cm/sec MV A max maco: 34.8 cm/sec MV E/A: 1.9 Lat Peak E' Maco: 11.8 cm/sec E/e' (lat): 5.7 Med Peak E' Maco: 6.7 cm/sec E/e' (med): 10.0 E/e' Average: 7.9 I ?WMSI = 1.19 ? % Normal = 81 ?Segments ??Size X - Cannot ?2 - ?4 - ?1-2 ? small Interpret ?1 - Normal ?? Hypokinetic 3 - Akinetic Dyskinetic ?? 3-5 ? moderate 5 - ? 6-14 ?large Aneurysmal ?15-16 ?? diffuse Procedure Note Domenica Nelson MD - 05/10/2024 Version 2 [address] [place] [address] Echocardiogram Report Name: SHAHNAZ SANTIAGO Study Date: 508:10 AMBP: 106/69 mmHg : 1950 Height: 185 cm Account: [id number] Age: 73 yrs Weight: 85 kg Gender: Male BSA: 2.1 m2 Ordering Physician: JERO ERIC Referring Physician: UNKNOWN Performed By: Magda Perez Reason For Study: Ventricular tachycardia; Elevated troponin Exam Location: [facility]. Interpretation Summary 1. Milldy increased left ventriclar wall thickness, normal chamber sizeand mildly reduced systolic function with beat to beat variability. The leftventricular ejection fraction is 47% by Paz's biplane. Hypokinesis of the inferiorwall. Also, abnormal septal motion associated with pacemaker activity. 2. Normal right ventricular size and systolic function. There is a CIEDlead in the right ventricle. 3. Mild mitral regurgitation. Trace aortic regurgitation. Compared to 11/06/2016: No major changes, EF remains in the same range. Procedure Complete-[id number]. Image enhancement Optison was used for left ventricular opacification. Suboptimal quality. Left Ventricle Left ventricle is of normal size. Mildly increased thickness of the basalseptum with no obstruction to LV outflow. There is no ventricular septal defect.Left ventricular systolic function is mildly reduced. The left ventricularejection fraction is 47% by Paz's biplane. There is abnormal septal motionassociated with pacemaker activity. There are segmental wall motion abnormalities. Right Ventricle There is a CIED lead in the right ventricle. The right ventricle isprobably normal in size. Left Atrium The left atrium is normal. The interatrial septum is not wellvisualized. Right Atrium A pacemaker lead is present in the right atrium. The right atrium isnormal. Aortic Valve The aortic valve is mildly thickened. The aortic valve is tricuspid. Thereis no aortic stenosis. There is trace aortic regurgitation. Mitral Valve The mitral valve is structurally and functionally normal. There is mildmitral regurgitation. Tricuspid Valve The tricuspid valve is not well visualized. There is trace tricuspid regurgitation. Pulmonic Valve The pulmonic valve appears to be structurally and functionally normal.There is trace pulmonic valve regurgitation. Great Arteries The diameter at the level of the sinuses of Valsalva is 3.5 cm. Themaximum diameter of the proximal ascending aorta is 3.8 cm. The pulmonary arteryis not well visualized. Venous Inferior vena cava collapse greater than 50% with respiration. Inferiorvena cava is not well visualized. Pericardium/Pleural There is no pericardial effusion. A pericardial fat pad is present. Hemodynamics Pulmonary artery hypertension could not be assessed due to inadequatetricuspid regurgitation jet. Left ventricular diastolic function is abnormal. Thereis Grade I LV diastolic dysfunction (abnormal relaxation with normal leftventricular filling pressure). Ejection Fraction 2D Measurements Volumes EF(MOD-bp): 46.6 % IVSd: 1.0 cm LAV(MOD-bp)Indexed: LVIDd: 5.5 cm LVIDs: 4.4 cm 28.7 ml/m2 LVPWd: 0.97 cm RA A4Cs_phl: 18.4cm2 EDV(MOD-bp)Indexed: RWT: 0.35 {ratio} LV mass(C)d: 217.5 grams 53.0 ml/m2 LV mass(C)dI: 104.1 grams/m2 ESV(MOD-bp)Indexed: Ao root diam: 3.5 cm 28.3 ml/m2 Ao root diam index: 1.7 asc Aorta Diam: 3.8 cm Doppler MV E max maco: 67.4 cm/sec MV A max maco: 34.8 cm/sec MV E/A: 1.9 Lat Peak E' Maco: 11.8 cm/sec E/e' (lat): 5.7 Med Peak E' Maco: 6.7 cm/sec E/e' (med): 10.0 E/e' Average: 7.9 I WMSI = 1.19 % Normal = 81 SegmentsSize X - Cannot 2 - 4 - 1-2small Interpret 1 - Normal Hypokinetic 3 - Akinetic Dyskinetic 3-5moderate 5 - 6-14large Aneurysmal 15-16diffuse Jero Eric MD ECHO ORDERAB LES * POC, GLUCOSE (05/10/2024 7:07 AM EST) Glucometer, POC 132 65 - 199 mg/dL 05/10/2024 7:07 AM EST [facility] Comment:Supplemental ranges: <140 mg/dL before meals <180 mg/dL all other times of the day. Blood CAPILLARY BLOOD / Unknown 05/10/2024 7:07 AM EST 05/10/2024 7:07 AM EST Bony Corcoran MD POINT OF CARE TEST O RDERABLES [facility] [place] [id number] * Troponin-T, High Sensitivity 3 Hour (05/10/2024 3:56 AM EST) [facility] Troponin-T, High Sensitivity 15 <=22 ng/L 05/10/2024 4:28 AM EST [facility] Comment: This patient's troponin T concentration was determined using the Brigido 5th Generation troponin T assay. According to the fourth universal definition of myocardial infarction, the term acute myocardial infarction should be used when there is acute myocardial injury with clinical evidence of acute myocardial ischemia and with detection of a rise and/or fall of cardiac troponin values with at least one value above the 99th percentile and at least one of the following: - Symptoms of myocardial ischemia; - New ischemic ECG changes; - Development of pathological Q waves; - Imaging evidence of new loss of viable myocardium or new regional wall motion ?? abnormality in a pattern consistent with an ischemic etiology; - Identification of a coronary thrombus by angiography or autopsy (not for type 2 or 3 ?? MIs) Serial measurement of troponin and the change in troponin concentration over time (delta) is crucial for the diagnosis of acute myocardial infarction. Guidance on the interpretation of the new 5th Generation Troponin T values and the delta troponin value can be found in the [facility] Test Catalog Troponin - https://one-.testcatalog.org/catalogs/565/files/89754 Reference: Fourth [place] Definition of Myocardial Infarction. Journal of the [place] [employer] 2018;72:2994-3449 Troponin-T, HS 3 hr delta 2 ng/L 05/10/2024 4:28 AM EST [facility] Comment:The 3 hour Troponin T delta value is the absolute difference between the Troponin T concentrations of the initial and subsequent sample collected between 2 h: 45 min and 6 h following the initial collection Blood VENOUS BLOOD SPECIMEN / Unknown Venipuncture / Unknown 05/10/2024 3:56 AM EST 05/10/2024 4:01 AM EST Jero Eric MD CHEMISTRY OR DERABLES Performing Organization Address City/[facility]/ZIP Co de Phone Number [facility] [place] [address] * COVID-19 PCR (05/10/2024 1:48 AM EST) [facility] SARS-CoV-2 RNA (Rapid) Not Detected Not Detected 05/10/2024 3:28 AM EST [facility] Swab SPECIMEN FROM NASOPHARYNGEAL STRUCTURE / Unknown Non Blood Collection / Unknown 05/10/2024 1:48 AM EST 05/10/2024 1:49 AM EST Jero Eric MD MICROBIOLOGY - GENERAL ORDERABLES Performing Organization Address City/[facility]/ZIP Co de Phone Number [facility] [place] [address] * Troponin-T, High Sensitivity 1 Hour (05/10/2024 1:17 AM EST) [facility] Troponin-T, High Sensitivity 13 <=22 ng/L 05/10/2024 1:52 AM EST [facility] Comment: This patient's troponin T concentration was determined using the Brigido 5th Generation troponin T assay. According to the fourth universal definition of myocardial infarction, the term acute myocardial infarction should be used when there is acute myocardial injury with clinical evidence of acute myocardial ischemia and with detection of a rise and/or fall of cardiac troponin values with at least one value above the 99th percentile and at least one of the following: - Symptoms of myocardial ischemia; - New ischemic ECG changes; - Development of pathological Q waves; - Imaging evidence of new loss of viable myocardium or new regional wall motion ?? abnormality in a pattern consistent with an ischemic etiology; - Identification of a coronary thrombus by angiography or autopsy (not for type 2 or 3 ?? MIs) Serial measurement of troponin and the change in troponin concentration over time (delta) is crucial for the diagnosis of acute myocardial infarction. Guidance on the interpretation of the new 5th Generation Troponin T values and the delta troponin value can be found in the [facility] Test Catalog Troponin - [email or web address] Entertainment.testcatalog.org/catalogs/565/files/74530 Reference: Fourth [place] Definition of Myocardial Infarction. Journal of the [place] [employer] 2018;72:0064-0870 Troponin-T, HS 1 hr delta 0 ng/L 05/10/2024 1:52 AM [facility] Comment:The 1 hour Troponin T delta value is the absolute difference between the Troponin T concentrations of the initial and subsequent sample collected between 45 - 120 minutes following the initial collection. Blood VENOUS BLOOD SPECIMEN / Unknown Venipuncture / Unknown 05/10/2024 1:17 AM EST 05/10/2024 1:27 AM EST Jero Eric MD CHEMISTRY OR DERABLES [facility] [place] [address] * EKG 12 Lead (05/10/2024 12:42 AM EST) Ventricular rate 60 BPM MUSE SYSTEM QRS Duration 134 ms MUSE SYSTEM Q-T Interval 468 ms MUSE SYSTEM QTC Calculated (Bezet) 468 ms MUSE SYSTEM Calculated R Anson -64 degrees MUSE SYSTEM Calculated T Anson 6 degrees MUSE SYSTEM INTERPRETATION Atrial fibrillation with frequent ventricular-pac ed complexes Left axis deviation Non-specific intra-ventricul ar conduction block Inferior infarct , age undetermined Abnormal ECG When compared with ECG of 12-DEC-2020 10:44, Electronic ventricular pacemaker has replaced Electronic atrial pacemaker Confirmed by MD Clair, Kti ([id number]) on 05/10/2024 1:00:22 PM MUSE SYSTEM 05/10/2024 12:4 2 AM EST 05/10/2024 1:00 PM EST Jero Eric MD ECG ORDERABL ES MUSE SYSTEM * Troponin-T, High Sensitivity (05/10/2024 12:21 AM EST) Troponin-T, High Sensitivity Initial 13 <=22 ng/L 05/10/2024 1:16 AM EST [facility] Comment: This patient's troponin T concentration was determined using the Brigido 5th Generation troponin T assay. The 99th percentile for Troponin T for this test is 14 ng/L for females, and 22 ng/L for males. According to the fourth universal definition of myocardial infarction, the term acute myocardial infarction should be used when there is acute myocardial injury with clinical evidence of acute myocardial ischemia and with detection of a rise and/or fall of cardiac troponin values with at least one value above the 99th percentile and at least one of the following: - Symptoms of myocardial ischemia; - New ischemic ECG changes; - Development of pathological Q waves; - Imaging evidence of new loss of viable myocardium or new regional wall motion ?? abnormality in a pattern consistent with an ischemic etiology; - Identification of a coronary thrombus by angiography or autopsy (not for type 2 or 3 ?? MIs) Serial measurement of troponin and the change in troponin concentration over time (delta) is crucial for the diagnosis of acute myocardial infarction. Guidance on the interpretation of the new 5th Generation Troponin T values and the delta troponin value can be found in the [facility] Test Catalog Troponin - https://one-.testcatalog.org/catalogs/565/files/14655 Reference: Fourth [place] Definition of Myocardial Infarction. Journal of the [place] College [employer] 2018;72:6571-8522 Blood VENOUS BLOOD SPECIMEN / Unknown Venipuncture / Unknown 05/10/2024 12:21 AM EST 05/10/2024 12:38 AM EST Jero Eric MD CHEMISTRY OR DERABLES Performing Organization Address City/[facility]/ZIP Co de Phone Number [facility] [place] [address] * (ABNORMAL) Prothrombin Time (05/10/2024 12:21 AM EST) Prothrombin Time 16.1(H) 9.4 - 12.5 sec 05/10/2024 12:46 AM EST [facility] International Normalization Ratio 1.4 <=4.9 05/10/2024 12:46 AM EST [facility] Comment: An INR < 2.0 indicates adequate procoagulant activity for hemostasis in most patients without underlying bleeding disorders, though the INR may not adequately reflect hemostatic capacity in patients with liver disease and synthetic impairment. The recommended target INR range for therapeutic anticoagulation is 2.0 - 3.0 for most applications, though lower and higher ranges may be appropriate depending on clinical circumstances. Blood VENOUS BLOOD SPECIMEN / Unknown Venipuncture / Unknown 05/10/2024 12:21 AM EST 05/10/2024 12:38 AM EST Jero Eric MD HEMATOLOGY O RDERABLES Performing Organization Address [facility] Co de Phone Number [facility] [place] [address] * TSH [place] (05/10/2024 12:21 AM EST) Thyroid Stimulating Hormone 0.63 0.27 - 4.20 mcIU/mL 05/10/2024 1:16 AM EST [facility] Blood VENOUS BLOOD SPECIMEN / Unknown Venipuncture / Unknown 05/10/2024 12:21 AM EST 05/10/2024 12:38 AM EST Jero Eric MD CHEMISTRY OR DERABLES [facility] [place] [address] * (ABNORMAL) pro-Brain Natriuretic Peptide (05/10/2024 12:21 AM EST) NT-proBNP 1,065(H) <=124 pg/mL 05/10/2024 1:16 AM EST [facility] Blood VENOUS BLOOD SPECIMEN / Unknown Venipuncture / Unknown 05/10/2024 12:21 AM EST 05/10/2024 12:38 AM EST Jero Eric MD CHEMISTRY OR DERABLES Performing Organization Address [facility] Co de Phone Number [facility] [place] [address] * Phosphorus (05/10/2024 12:21 AM EST) Phosphorus 2.9 2.5 - 4.5 mg/dL 05/10/2024 1:16 AM EST [facility] Blood VENOUS BLOOD SPECIMEN / Unknown Venipuncture / Unknown 05/10/2024 12:21 AM EST 05/10/2024 12:38 AM EST Jero Eric MD CHEMISTRY OR DERABLES Performing Organization Address City/[facility]/ZIP Co de Phone Number [facility] [place] [address] * Magnesium (05/10/2024 12:21 AM EST) Magnesium 0.83 0.69 - 1.07 mMol/L 05/10/2024 1:16 AM EST [facility] Blood VENOUS BLOOD SPECIMEN / Unknown Venipuncture / Unknown 05/10/2024 12:21 AM EST 05/10/2024 12:38 AM EST Jero Eric MD CHEMISTRY OR DERABLES [facility] [place] [address] * (ABNORMAL) Comprehensive metabolic panel (05/10/2024 12:21 AM EST) Glucose 156 65 - 199 mg/dL 05/10/2024 1:16 AM [facility] Comment:Glucose Concentratio n >=200 mg/dL plus symptoms is consistent with Diabetes Mellitus. Blood Urea Nitrogen 18 10 - 20 mg/dL 05/10/2024 1:16 AM [facility] Creatinine 0.92 0.80 - 1.50 mg/dL 05/10/2024 1:16 AM [facility] Sodium 140 135 - 145 mMol/L 05/10/2024 1:16 AM [facility] Potassium 4.6 3.5 - 5.0 mMol/L 05/10/2024 1:16 AM [facility] Chloride 105 98 - 107 mMol/L 05/10/2024 1:16 AM [facility] Carbon Dioxide 25 22 - 31 mMol/L 05/10/2024 1:16 AM [facility] Anion Gap 10 5 - 15 mMol/L 05/10/2024 1:16 AM [facility] Calcium 9.2 8.5 - 10.5 mg/dL 05/10/2024 1:16 AM [facility] Protein, Total 7.1 6.1 - 8.0 g/dL 05/10/2024 1:16 AM [facility] Albumin 4.1 3.2 - 5.2 g/dL 05/10/2024 1:16 AM [facility] Aspartate Aminotransferase 40(H) <=39 unit/L 05/10/2024 1:16 AM [facility] Alanine Aminotransferase 42 0 - 55 unit/L 05/10/2024 1:16 AM [facility] Alkaline Phosphatase 61 40 - 130 unit/L 05/10/2024 1:16 AM [facility] Bilirubin, Total 0.3 <=1.3 mg/dL 05/10/2024 1:16 AM EST [facility] Est Glomerular Filtration Rate - Male 87 mL/min/1. 73 m?? 05/10/2024 1:16 AM EST [facility] Comment: This patient's estimated GFR was calculated using the 2020 CKD-EPI equation. The estimated GFR can vary from the measured GFR by up to 30% in the absence of rapidly changing kidney function. Assessment of the estimated GFR is not appropriate when creatinine concentrations are rapidly changing. For clinical situations in which a more precise estimate of GFR is necessary, consider alternative methods of GFR estimation such as a 24-hour urine creatinine clearance. Assignment of CKD stage 1 - 5 for patients with an eGFR near the transition point between stages may be based on clinical assessment of muscle mass and symptoms in addition to eGFR. Link: eGFR Calculator [employer] Blood VENOUS BLOOD SPECIMEN / Unknown Venipuncture / Unknown 05/10/2024 12:21 AM EST 05/10/2024 12:38 AM EST Jero Eric MD CHEMISTRY OR DERABLES [facility] [place] [address] * (ABNORMAL) Hemoglobin A1c (05/10/2024 12:20 AM EST) Hemoglobin A1c 8.6(H) 4.3 - 5.6 % 05/10/2024 1:51 AM EST [facility] Comment: Per ADA guidelines, without clear symptoms of hyperglycemia or a random plasma glucose >199 mg/dL, a single abnormal A1c measurement cannot be used to diagnose diabetes mellitus. The diagnosis must be confirmed by either 1) a concurrent abnormal fasting plasma glucose or impaired response to oral glucose tolerance testing, or 2) an additional abnormal A1c, impaired fasting plasma glucose, or impaired response to oral glucose tolerance testing on a different day. A1c results obtained on patients with altered red blood cell turnover may not be manufacturers representative of glycemic control. Reference Interval: 4.3 - 5.6% 5.7 - 6.4%: Consistent with prediabetes >=6.5%: Consistent with diagnosis of diabetes mellitus Estimated Average Glucose 05/10/2024 1:51 AM [facility] Comment:Estimated Average Gl ucose not appropriate for patients over 70 years of age. Blood VENOUS BLOOD SPECIMEN / Unknown Venipuncture / Unknown 05/10/2024 12:20 AM EST 05/10/2024 12:38 AM [facility] - 05/10/2024 1:51 AM EST Estimated average glucose (eAG) is calculated from the equation described in: Raymundo HOLDEN, Wanda J, Emery R, et al. ??Translating the A1C assay into estimated average glucose values. ??Diabetes Care 2008:31(8):4897-3945. Additional resources are available on the ADA website (diabetes.org). Bony Corcoran MD CHEMISTRY ORDERABLES [facility] [place] [id number] * (ABNORMAL) CBC (with Diff) (05/10/2024 12:20 AM EST) White Blood Cell 7.51 4.00 - 9.50 x10(3)/mc L 05/10/2024 12:42 AM [facility] Red Blood Cell 5.13 4.58 - 5.54 x10(6)/mc L 05/10/2024 12:42 AM [facility] Hemoglobin 14.9 13.7 - 16.5 g/dL 05/10/2024 12:42 AM [facility] Hematocrit 45.8 40.5 - 48.5 % 05/10/2024 12:42 AM [facility] Mean Cell Volume 89.3 82.9 - 93.1 fL 05/10/2024 12:42 AM [facility] Mean Cell Hemoglobin 29.0 27.5 - 32.1 pg 05/10/2024 12:42 AM [facility] Mean Cell Hemoglobin Concentration 32.5 32.0 - 35.7 g/dL 05/10/2024 12:42 AM [facility] Platelet 216 145 - 357 x10(3)/mc L 05/10/2024 12:42 AM [facility] Mean Platelet Volume 9.1 7.6 - 12.9 fL 05/10/2024 12:42 AM [facility] RDW Standard Deviation 42.0 36.0 - 45.0 fL 05/10/2024 12:42 AM [facility] RDW coefficient of variation 12.8 11.4 - 13.8 % 05/10/2024 12:42 AM [facility] NRBC% auto 0.0 % 05/10/2024 12:42 AM [facility] NRBC Absolute <0.01 <0.01 x10(3)/mc L 05/10/2024 12:42 AM [facility] Neutrophil % 50.3 % 05/10/2024 12:42 AM [facility] Neutrophil Absolute (ANC) - Automated 3.78 1.70 - 6.10 x10(3)/mc L 05/10/2024 12:42 AM [facility] Lymph % 32.5 % 05/10/2024 12:42 AM [facility] Lymph Absolute 2.44 0.90 - 3.20 x10(3)/mc L 05/10/2024 12:42 AM [facility] Monocyte % 7.2 % 05/10/2024 12:42 AM [facility] Monocyte Absolute 0.54 0.30 - 0.90 x10(3)/mc L 05/10/2024 12:42 AM [facility] Eos % 8.8 % 05/10/2024 12:42 AM [facility] Eos Absolute 0.66(H) 0.00 - 0.40 x10(3)/mc L 05/10/2024 12:42 AM [facility] Basophil % 0.8 % 05/10/2024 12:42 AM [facility] Baso Absolute 0.06 0.00 - 0.10 x10(3)/mc L 05/10/2024 12:42 AM EST [facility] Immature Gran % 0.4 % 12:42 AM EST [facility] Immature Gran Absolute <0.04 0.00 - 0.04 x10(3)/mc L 05/10/2024 12:42 AM EST [facility] Blood VENOUS BLOOD SPECIMEN / Unknown Venipuncture / Unknown 05/10/2024 12:20 AM EST 05/10/2024 12:38 AM EST Jero Eric MD HEMATOLOGY O RDERABLES Performing Organization Address City/[facility]/ZIP Co de Phone Number [facility] [place] [address] * POC, GLUCOSE (05/09/2024 10:43 PM EST) Glucometer, POC 163 65 - 199 mg/dL 05/09/2024 10:43 PM EST [facility] Comment:Supplemental ranges: <140 mg/dL before meals <180 mg/dL all other times of the day. Blood CAPILLARY BLOOD / Unknown 05/09/2024 10:43 PM EST 05/09/2024 10:43 PM EST Bony Corcoran MD POINT OF CARE TEST O RDERALOREE Performing Organization Address City/[facility] Co de Phone Number [facility] [place] [address] documented in this encounter Visit Diagnoses Diagnosis Ventricular tachycardia- Primary Paroxysmal ventricular tachycardia Ventricular tachycardia Paroxysmal ventricular tachycardia Elevated troponin Other abnormal blood chemistry Longstanding persistent atrial fibrillation Persistent atrial fibrillation Atrial fibrillation documented in this encounter Admitting Diagnoses Diagnosis Ventricular tachycardia Paroxysmal ventricular tachycardia documented in this encounter Administered Medications Inactive Administered Medications - up to 3 most recent administrations Medication Order MAR Action Action Date Dose Rate Site AMIOdarone (CORDARONE) bolus from bag 150 mg 150 mg, Intravenous, Administer over 10 Minutes, ONCE, 1 dose, On Deloris 05/12/24 at 1500, Warning Vesicant/Irritant Medication , Routine New Bag 05/12/2024 2:22 PM EST 360 mg 1 mL/hr AMIOdarone (Nexterone) (1.8 mg/mL) in dextrose (iso-osmotic) infusion 1 mg/min (33.3333 mL/hr, rounded to 33.3 mL/hr), Intravenous, CONTINUOUS, Starting on Deloris 05/12/24 at 1500, Until Deloris 05/12/24 at 2059, Rotate IV site every 12 hours to prevent phlebitis Use in-line filter. Warning Vesicant/Irritant Medication Rate/Dose Verify 05/12/2024 8:34 PM EST 1 mg/min 33.3 mL/hr New Bag 05/12/2024 5:11 PM EST 1 mg/min 33.3 mL/hr New Bag 05/12/2024 2:32 PM EST 1 mg/min 33.3 mL/hr AMIOdarone (Nexterone) (1.8 mg/mL) in dextrose (iso-osmotic) infusion 0.5 mg/min (16.6667 mL/hr, rounded to 16.7 mL/hr), Intravenous, CONTINUOUS, Starting on Thu05/12/24 at 2100, Until 05/14/24 at 1834, After 24 hours from the start time of the AMIOdarone infusion, call MD regarding continuing infusion or changing to oral dosing. Rotate IV site every 12 hours to prevent phlebitis Use in-line filter. Warning Vesicant/Irritant Medication New Bag 05/14/2024 7:47 AM EST 0.5 mg/min 16.7 mL/hr New Bag 05/13/2024 8:32 PM EST 0.5 mg/min 16.7 mL/hr New Bag 05/13/2024 9:32 AM EST 0.5 mg/min 16.7 mL/hr AMIOdarone (Nexterone) 1.8 mg/mL infusion 1 dose, Starting on Thu05/12/24 at 1419, Until Thu05/12/24 at 1432, Carolyn Walter: cabinet override AMIOdarone (Pacerone) tablet 100 mg 100 mg, Oral, DAILY, First dose on Thu05/10/24 at 0900, Until Discontinued, Routine Given 05/10/2024 8:27 AM EST 100 mg AMIOdarone (Pacerone) tablet 200 mg 200 mg, Oral, DAILY, First dose (after last modification) on Thu05/11/24 at 0900, Until Discontinued, Routine Given 05/12/2024 8:19 AM EST 200 mg Given 05/11/2024 8:12 AM EST 200 mg AMIOdarone (Pacerone) tablet 400 mg 400 mg, Oral, ONCE, 1 dose, On Thu05/14/24 at 1545, Routine Given 05/14/2024 3:48 PM EST 400 mg atorvastatin (Lipitor) tablet 20 mg 20 mg, Oral, DAILY, First dose on Thu05/10/24 at 0900, Until Discontinued, Routine Given 05/14/2024 8:45 AM EST 20 mg Given 05/13/2024 8:24 AM EST 20 mg Given 05/12/2024 8:19 AM EST 20 mg bisacodyL (Dulcolax) suppository 10 mg 10 mg, Rectal, DAILY PRN, Starting on Thu05/10/24 at 0634, Until Thu05/14/24 at 1834, Constipation, Routine cholecalciferoL (Vitamin D3) tablet 400 Units 400 Units, Oral, DAILY, First dose on Thu05/10/24 at 0900, Until Discontinued Given 05/14/2024 8:46 AM EST 400 Unit s Given 05/13/2024 8:26 AM EST 400 Units Given 05/12/2024 8:18 AM EST 400 Units dextrose 50% intravenous solution 25 g 25 g, Intravenous, EVERY 15 MIN PRN, Starting on Thu05/13/24 at 2335, Until 05/14/24 at 1834, Low blood sugar, ??Oral treatment preferred For Blood Glucose 50 to 70 mg/dL: ?? -??IF ABLE TO DRINK, give 120 mL juice or regular (not diet) soda - IF NPO, give 15 gram glucose 40% oral gel massaged into buccal mucosa - IF UNCONSCIOUS OR UNCOOPERATIVE, give 25 gram dextrose IV - IF NO IV ACCESS, give 1 mg glucagon IM. For Blood Glucose LESS than 50 mg/dL: ?? -??IF ABLE TO DRINK, give 240 mL juice or regular (not diet) soda - IF NPO, give 30 gram glucose 40% oral gel massaged into buccal mucosa - IF UNCONSCIOUS OR UNCOOPERATIVE, give 25 gram dextrose IV - IF NO IV ACCESS, 1 mg glucagon IM. Recheck BG in 15 minutes. May repeat juice/soda, gel, dextrose or glucagon once per episode. Notify provider if hypoglycemia does not resolve after two treatments. Providers should consider the following: administering longer-acting treatments for the duration of active insulin or hypoglycemia agent for persistent hypoglycemia and re-evaluating active insulin orders before administering the next dose. Warning Vesicant/Irritant Medication , Routine gabapentin (Neurontin) capsule 300 mg 300 mg, Oral, DAILY, First dose on Thu05/10/24 at 0900, Until Discontinued, Routine Given 05/14/2024 8:47 AM EST 300 mg Given 05/13/2024 8:27 AM EST 300 mg Given 05/12/2024 8:19 AM EST 300 mg glucagon (Glucagen) (1 mg/mL) injection solution 1 mg 1 mg, Intramuscular, EVERY 15 MIN PRN, Starting on Thu05/13/24 at 2335, Until 05/14/24 at 1834, Low blood sugar, ??Oral treatment preferred For Blood Glucose 50 to 70 mg/dL: ?? -??IF ABLE TO DRINK, give 120 mL juice or regular (not diet) soda - IF NPO, give 15 gram glucose 40% oral gel massaged into buccal mucosa - IF UNCONSCIOUS OR UNCOOPERATIVE, give 25 gram dextrose IV - IF NO IV ACCESS, give 1 mg glucagon IM. For Blood Glucose LESS than 50 mg/dL: ?? -??IF ABLE TO DRINK, give 240 mL juice or regular (not diet) soda - IF NPO, give 30 gram glucose 40% oral gel massaged into buccal mucosa - IF UNCONSCIOUS OR UNCOOPERATIVE, give 25 gram dextrose IV - IF NO IV ACCESS, 1 mg glucagon IM. Recheck BG in 15 minutes. May repeat juice/soda, gel, dextrose or glucagon once per episode. Notify provider if hypoglycemia does not resolve after two treatments. Providers should consider the following: administering longer-acting treatments for the duration of active insulin or hypoglycemia agent for persistent hypoglycemia and re-evaluating active insulin orders before administering the next dose., Routine glucose (Glutose) 40% oral geL 15-30 g of glucose, Buccal, EVERY 15 MIN PRN, Starting on Thu05/13/24 at 2335, Until Thu05/14/24 at 1834, Low blood sugar, ??Oral treatment preferred For Blood Glucose 50 to 70 mg/dL: ?? -??IF ABLE TO DRINK, give 120 mL juice or regular (not diet) soda - IF NPO, give 15 gram glucose 40% oral gel massaged into buccal mucosa - IF UNCONSCIOUS OR UNCOOPERATIVE, give 25 gram dextrose IV - IF NO IV ACCESS, give 1 mg glucagon IM. For Blood Glucose LESS than 50 mg/dL: ?? -??IF ABLE TO DRINK, give 240 mL juice or regular (not diet) soda - IF NPO, give 30 gram glucose 40% oral gel massaged into buccal mucosa - IF UNCONSCIOUS OR UNCOOPERATIVE, give 25 gram dextrose IV - IF NO IV ACCESS, 1 mg glucagon IM. Recheck BG in 15 minutes. May repeat juice/soda, gel, dextrose or glucagon once per episode. Notify provider if hypoglycemia does not resolve after two treatments. Providers should consider the following: administering longer-acting treatments for the duration of active insulin or hypoglycemia agent for persistent hypoglycemia and re-evaluating active insulin orders before administering the next dose. 1 tube of Glutose-15 contains 15 grams of glucose (net weight of tube = 37.5 grams.), Routine insulin glargine-ygfn (Semglee) (100 unit/mL) subcutaneous injection vial 15 Units 15 Units, Subcutaneous, DAILY, First dose (after last modification) on Thu05/14/24 at 0900, Until Discontinued, Routine Given 05/14/2024 8:43 AM EST 15 Units insulin glargine-ygfn (Semglee) (100 unit/mL) subcutaneous injection vial 8 Units 8 Units, Subcutaneous, DAILY, First dose on Thu05/13/24 at 0900, Until Discontinued, Routine Given 05/13/2024 8:32 AM EST 8 Units insulin lispro (HumaLOG;Admelog) (100 unit/mL) subcutaneous injection vial 0-8 Units 0-8 Units, Subcutaneous, 3 TIMES DAILY WITH MEALS, First dose on Thu05/10/24 at 0800, Until Discontinued, MEAL ASSOCIATED Give 2 unit for every 10 grams carbohydrate. Hold if not eating or if BG less than 70 mg/dL. , Routine Given 05/10/2024 6:21 PM EST 4 Units insulin lispro (HumaLOG;Admelog) (100 unit/mL) subcutaneous injection vial 0-8 Units 0-8 Units, Subcutaneous, 3 TIMES DAILY WITH MEALS, First dose on Thu05/11/24 at 1730, Until Discontinued, MEAL ASSOCIATED Give 1 unit for every 10 grams carbohydrate. Hold if not eating or if BG less than 70 mg/dL. , Routine Given 05/13/2024 7:05 PM EST 8 Units Given 05/13/2024 10:38 AM EST 4 Units Given 05/12/2024 5:21 PM EST 5 Units insulin lispro (HumaLOG;Admelog) (100 unit/mL) subcutaneous injection vial 0-8 Units 0-8 Units, Subcutaneous, 4 TIMES DAILY BEFORE MEALS & NIGHTLY, First dose (after last modification) on Thu05/13/24 at 2100, Until Discontinued, MEAL ASSOCIATED Give 1 unit for every 10 grams carbohydrate. Hold if not eating or if BG less than 70 mg/dL. , Routine Given 05/14/2024 12:38 PM EST 6 Units Given 05/14/2024 8:42 AM EST 6 Units insulin lispro (HumaLOG;Admelog) (100 unit/mL) subcutaneous injection vial 1-6 Units 1-6 Units, Subcutaneous, 3 TIMES DAILY BEFORE MEALS, First dose on Thu05/10/24 at 0730, Until Discontinued, CORRECTION BOLUS [1-6 Units] Moderate Sliding Scale (BG in mg/dL): Correction factor 20 (1 unit of insulin is expected to drop the glucose 20 mg/dL) BG 140 - 160 Give 1 unit BG 161 - 180 Give 2 units BG 181 - 200 Give 3 units BG 201 - 220 Give 4 units BG 221 - 240 Give 5 units BG greater than 240, give 6 units and recheck BG in 2 hours. - If recheck BG is LESS than 240, give no insulin and resume schedule. - If recheck BG is GREATER than or EQUAL to 240, give 6 units and repeat BG in 2 hours & call for new insulin orders. DO NOT hold if NPO, unless specifically told to do so. ?? Per Inpatient Subcutaneous Insulin Policy, recheck a BG of greater than 240 mg/dL in 2 hours., Routine Given 05/10/2024 6:20 PM EST 6 Units Given 05/10/2024 12:58 PM EST 2 Units insulin lispro (HumaLOG;Admelog) (100 unit/mL) subcutaneous injection vial 1-6 Units 1-6 Units, Subcutaneous, EVERY 4 HOURS SCHEDULED, First dose on Thu05/12/24 at 0930, Until Discontinued, CORRECTION BOLUS [1-6 Units] Moderate Sliding Scale (BG in mg/dL): Correction factor 20 (1 unit of insulin is expected to drop the glucose 20 mg/dL) BG 140 - 160 Give 1 unit BG 161 - 180 Give 2 units BG 181 - 200 Give 3 units BG 201 - 220 Give 4 units BG 221 - 240 Give 5 units BG greater than 240, give 6 units and recheck BG in 2 hours. - If recheck BG is LESS than 240, give no insulin and resume schedule. - If recheck BG is GREATER than or EQUAL to 240, give 6 units and repeat BG in 2 hours (no more than 3 times) & call for new insulin orders. DO NOT hold if NPO, unless specifically directed to do so by written order. ?? Per Inpatient Subcutaneous Insulin Policy, recheck a BG of greater than 240 mg/dL in 2 hours., Routine Given 05/13/2024 8:25 PM EST 6 Units Given 05/13/2024 4:12 PM EST 5 Units Given 05/13/2024 1:44 PM EST 6 Units insulin lispro (HumaLOG;Admelog) (100 unit/mL) subcutaneous injection vial 2-12 Units 2-12 Units, Subcutaneous, EVERY 4 HOURS PRN, Starting on Thu05/10/24 at 2234, Until Thu05/11/24 at 0748, High Blood Sugar, CORRECTION BOLUS [2-12 Units] Resistant Sliding Scale (BG in mg/dL): Correction Factor 10 (1 unit of insulin is expected to drop the glucose 10 mg/dL) ?? BG 140 - 160 Give 2 units BG 161 - 180 Give 4 units BG 181 - 200 Give 6 units BG 201 - 220 Give 8 units BG 221 - 240 Give 10 units BG greater than 240, give 12 units and recheck BG in 2 hours. - If recheck BG is LESS than 240, give no insulin and resume schedule. - If recheck BG is GREATER than or EQUAL to 240, give 12 units and repeat BG in 2 hours & call for new insulin orders. DO NOT hold if NPO, unless specifically told to do so. Per Inpatient Subcutaneous Insulin Policy, recheck a BG of greater than 240 mg/dL in 2 hours., Routine Given 05/10/2024 10:40 PM EST 12 Units insulin lispro (HumaLOG;Admelog) (100 unit/mL) subcutaneous injection vial 2-12 Units 2-12 Units, Subcutaneous, EVERY 4 HOURS SCHEDULED, First dose on Thu05/11/24 at 0815, Until Discontinued, CORRECTION BOLUS [2-12 Units] Resistant Sliding Scale (BG in mg/dL) Correction Factor 10 (1 unit of insulin is expected to drop the glucose 10 mg/dL) ?? BG 140 - 160 Give 2 units BG 161 - 180 Give 4 units BG 181 - 200 Give 6 units BG 201 - 220 Give 8 units BG 221 - 240 Give 10 units BG greater than 240, give 12 units and recheck BG in 2 hours. - If recheck BG is LESS than 240, give no insulin and resume schedule. - If recheck BG is GREATER than or EQUAL to 240, give 12 units and repeat BG in 2 hours (no more than 3 times) & call for new insulin orders. DO NOT hold if NPO, unless specifically directed to do so by written order. ?? Per Inpatient Subcutaneous Insulin Policy, recheck a BG of greater than 240 mg/dL in 2 hours, Routine Given 05/11/2024 11:54 PM EST 6 Units Given 05/11/2024 8:51 PM EST 12 Units Given 05/11/2024 4:55 PM EST 12 Units insulin lispro (HumaLOG;Admelog) (100 unit/mL) subcutaneous injection vial 2-12 Units 2-12 Units, Subcutaneous, EVERY 4 HOURS SCHEDULED, First dose on Thu05/14/24 at 0000, Until Discontinued, CORRECTION BOLUS [2-12 Units] Resistant Sliding Scale (BG in mg/dL) Correction Factor 10 (1 unit of insulin is expected to drop the glucose 10 mg/dL) ?? BG 140 - 160 Give 2 units BG 161 - 180 Give 4 units BG 181 - 200 Give 6 units BG 201 - 220 Give 8 units BG 221 - 240 Give 10 units BG greater than 240, give 12 units and recheck BG in 2 hours. - If recheck BG is LESS than 240, give no insulin and resume schedule. - If recheck BG is GREATER than or EQUAL to 240, give 12 units and repeat BG in 2 hours (no more than 3 times) & call for new insulin orders. DO NOT hold if NPO, unless specifically directed to do so by written order. ?? Per Inpatient Subcutaneous Insulin Policy, recheck a BG of greater than 240 mg/dL in 2 hours, Routine Given 05/14/2024 2:54 PM EST 12 Units Given 05/14/2024 12:39 PM EST 12 Units Given 05/14/2024 8:43 AM EST 4 Units lactulose (Chronulac) (0.67 gram/mL) oral liquid 20 g 20 g, Oral, 2 TIMES DAILY PRN, Starting on Thu05/10/24 at 0635, Until Thu05/14/24 at 1834, Constipation, Routine lamoTRIgine (LaMICtal) tablet 200 mg 200 mg, Oral, DAILY, First dose (after last modification) on Thu05/10/24 at 0900, Until Discontinued, Routine Given 05/13/2024 8:25 AM EST 200 mg Given 05/12/2024 8:18 AM EST 200 mg Given 05/11/2024 8:12 AM EST 200 mg lamoTRIgine (LaMICtal) tablet 200 mg 200 mg, Oral, DAILY, First dose (after last modification) on Thu05/14/24 at 0900, Until Discontinued, Routine Given 05/14/2024 8:44 AM EST 200 mg lidocaine (Xylocaine) 1% (10 mg/mL) injection 3 mg 3 mg (0.3 mL), Subcutaneous, ONCE PRN, 1 dose, Starting on Thu05/11/24 at 1155, Until Thu05/14/24 at 1834, for discomfort with PIV insertion, Routine lisinopriL (Zestril) tablet 2.5 mg 2.5 mg, Oral, DAILY, First dose on Thu05/10/24 at 0900, Until Discontinued, Routine Given 05/14/2024 8:45 AM EST 2.5 mg Given 05/13/2024 8:25 AM EST 2.5 mg Given 05/12/2024 8:18 AM EST 2.5 mg LORazepam (Ativan) tablet 0.5 mg 0.5 mg, Oral, DAILY PRN, Starting on Thu05/13/24 at 1743, Until Thu05/14/24 at 1834, Anxiety, Routine Given 05/13/2024 5:59 PM EST 0.5 mg magnesium oxide (Mag-Ox) tablet 400 mg 400 mg, Oral, 2 TIMES DAILY, First dose on Thu05/10/24 at 2100, Until Discontinued, Routine Given 05/14/2024 8:46 AM EST 400 mg Given 05/13/2024 8:23 PM EST 400 mg Given 05/13/2024 8:23 AM EST 400 mg metoproloL tartrate (Lopressor) tablet 25 mg 25 mg, Oral, EVERY 6 HOURS SCHEDULED, First dose on Thu05/10/24 at 0200, Until Discontinued, Hold for SBP < 105 mm, Routine Given 05/14/2024 2:48 PM EST 25 mg Given 05/14/2024 8:46 AM EST 25 mg Given 05/14/2024 2:57 AM EST 25 mg pantoprazole EC (Protonix) tablet 40 mg 40 mg, Oral, DAILY, First dose on Thu05/10/24 at 0900, Until Discontinued, DO NOT CRUSH OR OPEN, Routine Given 05/14/2024 8:45 AM EST 40 mg Given 05/13/2024 8:24 AM EST 40 mg Given 05/12/2024 8:18 AM EST 40 mg perflutren protein-A microsphers (Optison) (0.22 mg/mL) injection 0.5 mL 0.5 mL, Intravenous, ONCE PRN, 1 dose, Starting on Thu05/10/24 at 0934, Until Thu05/10/24 at 0934, for enhancement of sub-optimal echo images, Echo Lab (Intra-Procedure), Routine Given 05/10/2024 9:34 AM EST 1.5 mLs phenoL 1.4% (Chloraseptic) spray 1 spray 1 spray, Oral, EVERY 4 HOURS PRN, Starting on Thu05/14/24 at 0046, Until Thu05/14/24 at 1834, Irritation, Routine Given 05/14/2024 2:58 AM EST 1 spray polyethylene glycoL (Miralax) packet 17 g 17 g, Oral, 2 TIMES DAILY, First dose on Thu05/10/24 at 0900, Until Discontinued, Routine Given 05/10/2024 12:56 PM EST 17 g polyethylene glycoL (Miralax) packet 17 g 17 g, Oral, DAILY PRN, Starting on Thu05/11/24 at 0930, Until 05/14/24 at 1834, Constipation, Routine psyllium husk 1 packet 1 packet, Oral, 2 TIMES DAILY, First dose on Thu05/10/24 at 0900, Until Discontinued, Mix each packet with 8 ounces of water., Routine Given 05/14/2024 8:47 AM EST 1 packet Given 05/13/2024 8:32 PM EST 1 packet Given 05/12/2024 8:30 PM EST 1 packet rivaroxaban (Xarelto) tablet 20 mg 20 mg, Oral, DAILY, First dose on Thu05/10/24 at 0900, Until Discontinued, Routine, rivaroxaban (Xarelto) Indication: Non-Valvular Atrial Fibrillation Given 05/14/2024 8:45 AM EST 20 mg Given 05/13/2024 8:26 AM EST 20 mg Given 05/12/2024 8:19 AM EST 20 mg simethicone (Mylicon) (40 mg/0.6mL) oral liquid 40 mg 40 mg, Oral, EVERY 6 HOURS PRN, Starting on Thu05/12/24 at 2000, Until 05/14/24 at 1834, Cramping, Routine Given 05/12/2024 9:37 PM EST 40 mg sodium chloride 0.9 % (flush) (BD PosiFlush Normal Saline 0.9) flush 5 mL 5 mL, Intravenous, 2 Times Daily, First dose on Thu05/11/24 at 0900, Until Discontinued, Routine Given 05/13/2024 8:27 PM EST 5 mLs Given 05/12/2024 8:40 PM EST 5 mLs Given 05/12/2024 8:20 AM EST 5 mLs sodium chloride 0.9 % (flush) (BD PosiFlush Normal Saline 0.9) flush 5 mL 5 mL, Intravenous, 2 TIMES DAILY, First dose on Thu05/11/24 at 1215, Until Discontinued, Routine Given 05/14/2024 8:48 AM EST 5 mLs Given 05/13/2024 8:23 PM EST 5 mLs Given 05/13/2024 8:28 AM EST 5 mLs sodium chloride 0.9 % (flush) (BD PosiFlush Normal Saline 0.9) flush 5-20 mL 5-20 mL, Intravenous, EVERY 4 HOURS PRN, Starting on Thu05/10/24 at 2356, Until 05/14/24 at 1834, before and after any iv access, Routine Given 05/11/2024 8:19 AM EST 5 mLs Given 05/11/2024 8:13 AM EST 5 mLs sodium chloride 0.9 % (flush) (BD PosiFlush Normal Saline 0.9) flush 5-20 mL 5-20 mL, Intravenous, EVERY 1 MIN PRN, Starting on Thu05/11/24 at 1155, Until 05/14/24 at 1834, flush, Flush pertains to all indwelling lines. Flush per protocol found in the job aid using the link provided on this medication record., Routine zolpidem (Ambien) tablet 5 mg 5 mg, Oral, NIGHTLY PRN, Starting on Thu05/10/24 at 0120, Until 05/14/24 at 1834, Sleep, Routine Given 05/14/2024 1:31 AM EST 5 mg Given 05/12/2024 10:59 PM EST 5 mg Given 05/11/2024 11:54 PM EST 5 mg documented in this encounter Active and Recently Administered Medications Times are shown in EST. Scheduled Medication Order 05/12/2024 05/13/2024 05/14/2024 AMIOdarone (CORDARONE) bolus from bag 150 mg (COMPLETED)(Linked Group 1) 150 mg, Intravenous, Administer over 10 Minutes, ONCE, 1 dose, On Deloris 05/12/24 at 1500, Warning Vesicant/Irritant Medication , Routine 1422 (New Bag - Provider: Loreto Covarrubias, NAHUN)1432 (Hold - Provider: Loreto Covarrubias RN - Reason: See comment - Comment: Bolus completed) AMIOdarone (Pacerone) tablet 200 mg (CANCELED) 200 mg, Oral, DAILY, First dose (after last modification) on Thu05/11/24 at 0900, Until Discontinued, Routine 0819 (Given - Provider: Loreto Covarrubias, NAHUN) AMIOdarone (Pacerone) tablet 400 mg (COMPLETED) 400 mg, Oral, ONCE, 1 dose, On Thu05/14/24 at 1545, Routine 1548 (Given - Provider: Adis Berman, RN) atorvastatin (Lipitor) tablet 20 mg 20 mg, Oral, DAILY, First dose on Thu05/10/24 at 0900, Until Discontinued, Routine 0819 (Given - Provider: Loreto Covarrubias, NAHUN) 0824 (Given - Provider: Adis Berman, RN) 0845 (Given - Provider: Adis Berman, RN) cholecalciferoL (Vitamin D3) tablet 400 Units 400 Units, Oral, DAILY, First dose on Thu05/10/24 at 0900, Until Discontinued 0818 (Given - Provider: Loreto Covarrubias RN) 0826 (Given - Provider: Adis Berman, NAHUN) 0846 (Given - Provider: Adis Berman, RN) gabapentin (Neurontin) capsule 300 mg 300 mg, Oral, DAILY, First dose on Thu05/10/24 at 0900, Until Discontinued, Routine 0819 (Given - Provider: Loreto Covarrubias RN) 0827 (Given - Provider: Adis Berman, RN) 0847 (Given - Provider: Adis Berman, RN) insulin glargine-ygfn (Semglee) (100 unit/mL) subcutaneous injection vial 15 Units 15 Units, Subcutaneous, DAILY, First dose (after last modification) on Thu05/14/24 at 0900, Until Discontinued, Routine 0843 (Given - Provider: Adis Berman, RN) insulin glargine-ygfn (Semglee) (100 unit/mL) subcutaneous injection vial 8 Units (CANCELED) 8 Units, Subcutaneous, DAILY, First dose on Thu05/13/24 at 0900, Until Discontinued, Routine 0832 (Given - Provider: Adis Berman, NAHUN) insulin lispro (HumaLOG;Admelog) (100 unit/mL) subcutaneous injection vial 0-8 Units (CANCELED) 0-8 Units, Subcutaneous, 3 TIMES DAILY WITH MEALS, First dose on Thu05/11/24 at 1730, Until Discontinued, MEAL ASSOCIATED Give 1 unit for every 10 grams carbohydrate. Hold if not eating or if BG less than 70 mg/dL. , Routine 0800 (Not Given - Provider: Loreto Covarrubias RN - Reason: NPO)1331 (Given - Provider: Loreto Covarrubias, RN)1721 (Given - Provider: Loreto Covarrubias RN) 1038 (Given - Provider: Adis Berman, NAHUN)1612 (Not Given - Provider: Elvia Sweet RN - Reason: Order parameters not met - Comment: refused lunch)1905 (Given - Provider: Elvia Sweet RN - Comment: late dinner) insulin lispro (HumaLOG;Admelog) (100 unit/mL) subcutaneous injection vial 0-8 Units 0-8 Units, Subcutaneous, 4 TIMES DAILY BEFORE MEALS & NIGHTLY, First dose (after last modification) on Thu05/13/24 at 2100, Until Discontinued, MEAL ASSOCIATED Give 1 unit for every 10 grams carbohydrate. Hold if not eating or if BG less than 70 mg/dL. , Routine 2100 (Not Given - Provider: Jaron Brown RN - Reason: See comment - Comment: Insulin given w/ PM coverage) 0842 (Given - Provider: Adis Berman RN)1238 (Given - Provider: Adis Berman RN)1630 (Due) insulin lispro (HumaLOG;Admelog) (100 unit/mL) subcutaneous injection vial 1-6 Units (CANCELED)(Linked Group 2) 1-6 Units, Subcutaneous, EVERY 4 HOURS SCHEDULED, First dose on Thu05/12/24 at 0930, Until Discontinued, CORRECTION BOLUS [1-6 Units] Moderate Sliding Scale (BG in mg/dL): Correction factor 20 (1 unit of insulin is expected to drop the glucose 20 mg/dL) BG 140 - 160 Give 1 unit BG 161 - 180 Give 2 units BG 181 - 200 Give 3 units BG 201 - 220 Give 4 units BG 221 - 240 Give 5 units BG greater than 240, give 6 units and recheck BG in 2 hours. - If recheck BG is LESS than 240, give no insulin and resume schedule. - If recheck BG is GREATER than or EQUAL to 240, give 6 units and repeat BG in 2 hours (no more than 3 times) & call for new insulin orders. DO NOT hold if NPO, unless specifically directed to do so by written order. ?? Per Inpatient Subcutaneous Insulin Policy, recheck a BG of greater than 240 mg/dL in 2 hours., Routine 0930 (Not Given - Provider: Loreto Covarrubias RN - Reason: See comment - Comment: Already documented for 0800)1157 (Given - Provider: Loreto Covarrubias, RN)1547 (Given - Provider: Loreto Covarrubias, RN)1720 (Given - Provider: Loreto Covarrubias, RN)2030 (Given - Provider: Jaron Brown RN) 0000 (Not Given - Provider: Jaron Brown RN - Reason: Order parameters not met - Comment: bg 122)0400 (Not Given - Provider: Jaron Brown RN - Reason: Order parameters not met - Comment: BG 132- Glucometer continuously rebooting)0833 (Given - Provider: Adis Berman, NAHUN)1206 (Given - Provider: Adis Berman, NAHUN)1344 (Given - Provider: Adis Berman, NAHUN)1612 (Given - Provider: Elvia Sweet RN)202 (Given - Provider: Jaron Brown RN) insulin lispro (HumaLOG;Admelog) (100 unit/mL) subcutaneous injection vial 2-12 Units(Linked Group 3) 2-12 Units, Subcutaneous, EVERY 4 HOURS SCHEDULED, First dose on 05/14/24 at 0000, Until Discontinued, CORRECTION BOLUS [2-12 Units] Resistant Sliding Scale (BG in mg/dL) Correction Factor 10 (1 unit of insulin is expected to drop the glucose 10 mg/dL) ?? BG 140 - 160 Give 2 units BG 161 - 180 Give 4 units BG 181 - 200 Give 6 units BG 201 - 220 Give 8 units BG 221 - 240 Give 10 units BG greater than 240, give 12 units and recheck BG in 2 hours. - If recheck BG is LESS than 240, give no insulin and resume schedule. - If recheck BG is GREATER than or EQUAL to 240, give 12 units and repeat BG in 2 hours (no more than 3 times) & call for new insulin orders. DO NOT hold if NPO, unless specifically directed to do so by written order. ?? Per Inpatient Subcutaneous Insulin Policy, recheck a BG of greater than 240 mg/dL in 2 hours, Routine 0006 (Given - Provider: Jaron Brown, RN)0447 (Given - Provider: Jaron Brown, RN)0843 (Given - Provider: dAis Berman, RN)1239 (Given - Provider: Adis Berman, RN)1454 (Given - Provider: Adis Berman, RN)1600 (Due) lamoTRIgine (LaMICtal) tablet 200 mg (CANCELED) 200 mg, Oral, DAILY, First dose (after last modification) on Thu05/10/24 at 0900, Until Discontinued, Routine 0818 (Given - Provider: Loreto Covarrubias RN) 0825 (Given - Provider: Adis Berman, RN) lamoTRIgine (LaMICtal) tablet 200 mg 200 mg, Oral, DAILY, First dose (after last modification) on Thu05/14/24 at 0900, Until Discontinued, Routine 0844 (Given - Provider: Adis Berman, RN) lisinopriL (Zestril) tablet 2.5 mg 2.5 mg, Oral, DAILY, First dose on Thu05/10/24 at 0900, Until Discontinued, Routine 0818 (Given - Provider: Loreto Covarrubias RN) 0825 (Given - Provider: Adis Berman, NAHUN) 0845 (Given - Provider: Adis Berman, RN) magnesium oxide (Mag-Ox) tablet 400 mg 400 mg, Oral, 2 TIMES DAILY, First dose on Thu05/10/24 at 2100, Until Discontinued, Routine 0819 (Given - Provider: Loreto Covarrubias RN)202 (Given - Provider: Jaron Brown, NAHUN) 0823 (Given - Provider: Adis Berman, RN)2023 (Given - Provider: aJron Brown, RN) 0846 (Given - Provider: Adis Berman, RN) metoproloL tartrate (Lopressor) tablet 25 mg 25 mg, Oral, EVERY 6 HOURS SCHEDULED, First dose on Thu05/10/24 at 0200, Until Discontinued, Hold for SBP < 105 mm, Routine 0242 (Given - Provider: Jaron Brown, NAHUN)0818 (Given - Provider: Loreto Covarrubias RN)1331 (Given - Provider: Loreto Covarrubias RN)2028 (Given - Provider: Jaron Brown RN) 025 (Given - Provider: Jaron Brown RN)0827 (Given - Provider: Adis Berman RN)1348 (Given - Provider: Adis Berman, NAHUN)2022 (Given - Provider: Jaron Brown RN) 025 (Given - Provider: Jaron Brown RN)0846 (Given - Provider: Adis Berman RN)1448 (Given - Provider: Adis Berman, RN) pantoprazole EC (Protonix) tablet 40 mg 40 mg, Oral, DAILY, First dose on Thu05/10/24 at 0900, Until Discontinued, DO NOT CRUSH OR OPEN, Routine 817 (Given - Provider: Loreto Covarrubias RN) 0824 (Given - Provider: Adis Berman, NAHUN) 0845 (Given - Provider: Adis Berman, NAHUN) psyllium husk 1 packet 1 packet, Oral, 2 TIMES DAILY, First dose on Thu05/10/24 at 0900, Until Discontinued, Mix each packet with 8 ounces of water., Routine 899 (Not Given - Provider: Loreto Covarrubias RN - Reason: NPO)2029 (Given - Provider: Jaron Brown RN) 09 (Not Given - Provider: Adis Berman RN - Reason: Patient/family refused)2031 (Given - Provider: Jaron Brown RN) 0847 (Given - Provider: Adis Berman RN) rivaroxaban (Xarelto) tablet 20 mg 20 mg, Oral, DAILY, First dose on Thu05/10/24 at 0900, Until Discontinued, Routine, rivaroxaban (Xarelto) Indication: Non-Valvular Atrial Fibrillation 0819 (Given - Provider: Loreto Covarrubias RN) 0826 (Given - Provider: Adis Berman, NAHUN) 0845 (Given - Provider: Adis Berman, NAHUN) sodium chloride 0.9 % (flush) (BD PosiFlush Normal Saline 0.9) flush 5 mL 5 mL, Intravenous, 2 Times Daily, First dose on Thu05/11/24 at 0900, Until Discontinued, Routine 0820 (Given - Provider: Loreto Covarrubias, NAHUN)2039 (Given - Provider: Jaron Brown, NAHUN) 09 (Not Given - Provider: Adis Berman, NAHUN - Reason: See comment - Comment: infusing)2026 (Given - Provider: Jaron Brown, NAHUN) 0900 (Not Given - Provider: Adis Berman, NAHUN - Reason: See comment - Comment: infusing) sodium chloride 0.9 % (flush) (BD PosiFlush Normal Saline 0.9) flush 5 mL 5 mL, Intravenous, 2 TIMES DAILY, First dose on Thu05/11/24 at 1215, Until Discontinued, Routine 08 (Given - Provider: Loreto Covarrubias RN)2038 (Given - Provider: Jaron Brown RN) 08 (Given - Provider: Adis Berman RN)2022 (Given - Provider: Jaron Brown, NAHUN) 0848 (Given - Provider: Adis Berman RN) Continuous Medication Order 05/12/2024 05/13/2024 05/14/2024 AMIOdarone (Nexterone) (1.8 mg/mL) in dextrose (iso-osmotic) infusion ()(Linked Group 1) 1 mg/min (33.3333 mL/hr, rounded to 33.3 mL/hr), Intravenous, CONTINUOUS, Starting on Deloris 05/12/24 at 1500, Until Deloris 05/12/24 at 2059, Rotate IV site every 12 hours to prevent phlebitis Use in-line filter. Warning Vesicant/Irritant Medication 1432 (New Bag - Provider: Loreto Covarrubias, NAHUN)1711 (New Bag - Provider: Loreto Covarrubias, NAHUN)2033 (Rate/Dose Verify - Provider: Jaron Brown, NAHUN)2099 (Stopped - Provider: Jaron Brown RN) AMIOdarone (Nexterone) (1.8 mg/mL) in dextrose (iso-osmotic) infusion(Linked Group 1) 0.5 mg/min (16.6667 mL/hr, rounded to 16.7 mL/hr), Intravenous, CONTINUOUS, Starting on Deloris 05/12/24 at 2100, Until 05/14/24 at 1834, After 24 hours from the start time of the AMIOdarone infusion, call MD regarding continuing infusion or changing to oral dosing. Rotate IV site every 12 hours to prevent phlebitis Use in-line filter. Warning Vesicant/Irritant Medication 2044 (New Bag - Provider: Jaron Brown, NAHUN)2251 (New Bag - Provider: Jaron Brown RN) 0932 (New Bag - Provider: Adis Berman, NAHUN)2031 (New Bag - Provider: Jaron Brown RN - Comment: Amio was previously in right PIV, site rotated to left) 0747 (New Bag - Provider: Adis Berman RN) PRN Medication Order 05/12/2024 05/13/2024 05/14/2024 bisacodyL (Dulcolax) suppository 10 mg 10 mg, Rectal, DAILY PRN, Starting on Tu05/10/24 at 0634, Until 05/14/24 at 1834, Constipation, Routine dextrose 50% intravenous solution 25 g(Linked Group 4) 25 g, Intravenous, EVERY 15 MIN PRN, Starting on Thu05/13/24 at 2335, Until 05/14/24 at 1834, Low blood sugar, ??Oral treatment preferred For Blood Glucose 50 to 70 mg/dL: ?? -??IF ABLE TO DRINK, give 120 mL juice or regular (not diet) soda - IF NPO, give 15 gram glucose 40% oral gel massaged into buccal mucosa - IF UNCONSCIOUS OR UNCOOPERATIVE, give 25 gram dextrose IV - IF NO IV ACCESS, give 1 mg glucagon IM. For Blood Glucose LESS than 50 mg/dL: ?? -??IF ABLE TO DRINK, give 240 mL juice or regular (not diet) soda - IF NPO, give 30 gram glucose 40% oral gel massaged into buccal mucosa - IF UNCONSCIOUS OR UNCOOPERATIVE, give 25 gram dextrose IV - IF NO IV ACCESS, 1 mg glucagon IM. Recheck BG in 15 minutes. May repeat juice/soda, gel, dextrose or glucagon once per episode. Notify provider if hypoglycemia does not resolve after two treatments. Providers should consider the following: administering longer-acting treatments for the duration of active insulin or hypoglycemia agent for persistent hypoglycemia and re-evaluating active insulin orders before administering the next dose. Warning Vesicant/Irritant Medication , Routine glucagon (Glucagen) (1 mg/mL) injection solution 1 mg(Linked Group 4) 1 mg, Intramuscular, EVERY 15 MIN PRN, Starting on Thu05/13/24 at 2335, Until 05/14/24 at 1834, Low blood sugar, ??Oral treatment preferred For Blood Glucose 50 to 70 mg/dL: ?? -??IF ABLE TO DRINK, give 120 mL juice or regular (not diet) soda - IF NPO, give 15 gram glucose 40% oral gel massaged into buccal mucosa - IF UNCONSCIOUS OR UNCOOPERATIVE, give 25 gram dextrose IV - IF NO IV ACCESS, give 1 mg glucagon IM. For Blood Glucose LESS than 50 mg/dL: ?? -??IF ABLE TO DRINK, give 240 mL juice or regular (not diet) soda - IF NPO, give 30 gram glucose 40% oral gel massaged into buccal mucosa - IF UNCONSCIOUS OR UNCOOPERATIVE, give 25 gram dextrose IV - IF NO IV ACCESS, 1 mg glucagon IM. Recheck BG in 15 minutes. May repeat juice/soda, gel, dextrose or glucagon once per episode. Notify provider if hypoglycemia does not resolve after two treatments. Providers should consider the following: administering longer-acting treatments for the duration of active insulin or hypoglycemia agent for persistent hypoglycemia and re-evaluating active insulin orders before administering the next dose., Routine glucose (Glutose) 40% oral geL(Linked Group 4) 15-30 g of glucose, Buccal, EVERY 15 MIN PRN, Starting on Thu05/13/24 at 2335, Until 05/14/24 at 1834, Low blood sugar, ??Oral treatment preferred For Blood Glucose 50 to 70 mg/dL: ?? -??IF ABLE TO DRINK, give 120 mL juice or regular (not diet) soda - IF NPO, give 15 gram glucose 40% oral gel massaged into buccal mucosa - IF UNCONSCIOUS OR UNCOOPERATIVE, give 25 gram dextrose IV - IF NO IV ACCESS, give 1 mg glucagon IM. For Blood Glucose LESS than 50 mg/dL: ?? -??IF ABLE TO DRINK, give 240 mL juice or regular (not diet) soda - IF NPO, give 30 gram glucose 40% oral gel massaged into buccal mucosa - IF UNCONSCIOUS OR UNCOOPERATIVE, give 25 gram dextrose IV - IF NO IV ACCESS, 1 mg glucagon IM. Recheck BG in 15 minutes. May repeat juice/soda, gel, dextrose or glucagon once per episode. Notify provider if hypoglycemia does not resolve after two treatments. Providers should consider the following: administering longer-acting treatments for the duration of active insulin or hypoglycemia agent for persistent hypoglycemia and re-evaluating active insulin orders before administering the next dose. 1 tube of Glutose-15 contains 15 grams of glucose (net weight of tube = 37.5 grams.), Routine lactulose (Chronulac) (0.67 gram/mL) oral liquid 20 g 20 g, Oral, 2 TIMES DAILY PRN, Starting on Thu05/10/24 at 0635, Until 05/14/24 at 1834, Constipation, Routine lidocaine (Xylocaine) 1% (10 mg/mL) injection 3 mg 3 mg (0.3 mL), Subcutaneous, ONCE PRN, 1 dose, Starting on Thu05/11/24 at 1155, Until 05/14/24 at 1834, for discomfort with PIV insertion, Routine LORazepam (Ativan) tablet 0.5 mg 0.5 mg, Oral, DAILY PRN, Starting on Thu05/13/24 at 1743, Until 05/14/24 at 1834, Anxiety, Routine 1759 (Given - Provider: Elvia Sweet RN) phenoL 1.4% (Chloraseptic) spray 1 spray 1 spray, Oral, EVERY 4 HOURS PRN, Starting on Thu05/14/24 at 0046, Until 05/14/24 at 1834, Irritation, Routine 0258 (Given - Provider: Jaron Brown RN) polyethylene glycoL (Miralax) packet 17 g 17 g, Oral, DAILY PRN, Starting on Thu05/11/24 at 0930, Until 05/14/24 at 1834, Constipation, Routine simethicone (Mylicon) (40 mg/0.6mL) oral liquid 40 mg 40 mg, Oral, EVERY 6 HOURS PRN, Starting on Thu05/12/24 at 2000, Until 05/14/24 at 1834, Cramping, Routine 2137 (Given - Provider: Jaron Brown, RN - Comment: Bloating) sodium chloride 0.9 % (flush) (BD PosiFlush Normal Saline 0.9) flush 5-20 mL 5-20 mL, Intravenous, EVERY 4 HOURS PRN, Starting on Thu05/10/24 at 2356, Until 05/14/24 at 1834, before and after any iv access, Routine sodium chloride 0.9 % (flush) (BD PosiFlush Normal Saline 0.9) flush 5-20 mL 5-20 mL, Intravenous, EVERY 1 MIN PRN, Starting on Thu05/11/24 at 1155, Until 05/14/24 at 1834, flush, Flush pertains to all indwelling lines. Flush per protocol found in the job aid using the link provided on this medication record., Routine traMADoL (Ultram) tablet 50 mg 50 mg, Oral, EVERY 6 HOURS PRN, Starting on Thu05/10/24 at 0120, Until 05/14/24 at 1834, Pain, Routine zolpidem (Ambien) tablet 5 mg 5 mg, Oral, NIGHTLY PRN, Starting on Thu05/10/24 at 0120, Until 05/14/24 at 1834, Sleep, Routine 2259 (Given - Provider: Jaron Brown, NAHUN) 0131 (Given - Provider: Johanna Lewis RN) Linked Groups Order Group 1: AMIOdarone (CORDARONE) bolus from bag 150 mg (COMPLETED)Jump to med 150 mg, Intravenous, Administer over 10 Minutes, ONCE, 1 dose, On Deloris 05/12/24 at 1500, Warning Vesicant/Irritant Medication , Routine Followed by AMIOdarone (Nexterone) (1.8 mg/mL) in dextrose (iso-osmotic) infusion ()Jump to med 1 mg/min (33.3333 mL/hr, rounded to 33.3 mL/hr), Intravenous, CONTINUOUS, Starting on Deloris 05/12/24 at 1500, Until [place] 05/12/24 at 2059, Rotate IV site every 12 hours to prevent phlebitis Use in-line filter. Warning Vesicant/Irritant Medication Followed by AMIOdarone (Nexterone) (1.8 mg/mL) in dextrose (iso-osmotic) infusionJump to med 0.5 mg/min (16.6667 mL/hr, rounded to 16.7 mL/hr), Intravenous, CONTINUOUS, Starting on [place] 05/12/24 at 2100, Until 05/14/24 at 1834, After 24 hours from the start time of the AMIOdarone infusion, call MD regarding continuing infusion or changing to oral dosing. Rotate IV site every 12 hours to prevent phlebitis Use in-line filter. Warning Vesicant/Irritant Medication Group 2: POCT Fingerstick Glucose (CANCELED) Routine, EVERY 4 HOURS, First occurrence on [place]oris 05/12/24 at 0915, Until Specified, Consider choosing EVERY 4 HOURS as frequency for: - Type 1 Diabetes - At least 24 hours after coming off an insulin drip - At least 24 hours after admission for DKA - Hypoglycemia unawareness - Patients who are otherwise unstable Select the same frequency for the correction bolus insulin order And insulin lispro (HumaLOG;Admelog) (100 unit/mL) subcutaneous injection vial 1-6 Units (CANCELED)Jump to med 1-6 Units, Subcutaneous, EVERY 4 HOURS SCHEDULED, First dose on [place]oris 05/12/24 at 0930, Until Discontinued, CORRECTION BOLUS [1-6 Units] Moderate Sliding Scale (BG in mg/dL): Correction factor 20 (1 unit of insulin is expected to drop the glucose 20 mg/dL) BG 140 - 160 Give 1 unit BG 161 - 180 Give 2 units BG 181 - 200 Give 3 units BG 201 - 220 Give 4 units BG 221 - 240 Give 5 units BG greater than 240, give 6 units and recheck BG in 2 hours. - If recheck BG is LESS than 240, give no insulin and resume schedule. - If recheck BG is GREATER than or EQUAL to 240, give 6 units and repeat BG in 2 hours (no more than 3 times) & call for new insulin orders. DO NOT hold if NPO, unless specifically directed to do so by written order. ?? Per Inpatient Subcutaneous Insulin Policy, recheck a BG of greater than 240 mg/dL in 2 hours., Routine Group 3: POCT Fingerstick Glucose (CANCELED) Routine, EVERY 4 HOURS, First occurrence on Thu05/13/24 at 2340, Until Specified, Consider choosing EVERY 4 HOURS as frequency for: - Type 1 Diabetes - At least 24 hours after coming off an insulin drip - At least 24 hours after admission for DKA - Hypoglycemia unawareness - Patients who are otherwise unstable Select the same frequency for the correction bolus insulin order And insulin lispro (HumaLOG;Admelog) (100 unit/mL) subcutaneous injection vial 2-12 UnitsJump to med 2-12 Units, Subcutaneous, EVERY 4 HOURS SCHEDULED, First dose on 05/14/24 at 0000, Until Discontinued, CORRECTION BOLUS [2-12 Units] Resistant Sliding Scale (BG in mg/dL) Correction Factor 10 (1 unit of insulin is expected to drop the glucose 10 mg/dL) ?? BG 140 - 160 Give 2 units BG 161 - 180 Give 4 units BG 181 - 200 Give 6 units BG 201 - 220 Give 8 units BG 221 - 240 Give 10 units BG greater than 240, give 12 units and recheck BG in 2 hours. - If recheck BG is LESS than 240, give no insulin and resume schedule. - If recheck BG is GREATER than or EQUAL to 240, give 12 units and repeat BG in 2 hours (no more than 3 times) & call for new insulin orders. DO NOT hold if NPO, unless specifically directed to do so by written order. ?? Per Inpatient Subcutaneous Insulin Policy, recheck a BG of greater than 240 mg/dL in 2 hours, Routine Group 4: glucose (Glutose) 40% oral geLJump to med 15-30 g of glucose, Buccal, EVERY 15 MIN PRN, Starting on Thu05/13/24 at 2335, Until 05/14/24 at 1834, Low blood sugar, ??Oral treatment preferred For Blood Glucose 50 to 70 mg/dL: ?? -??IF ABLE TO DRINK, give 120 mL juice or regular (not diet) soda - IF NPO, give 15 gram glucose 40% oral gel massaged into buccal mucosa - IF UNCONSCIOUS OR UNCOOPERATIVE, give 25 gram dextrose IV - IF NO IV ACCESS, give 1 mg glucagon IM. For Blood Glucose LESS than 50 mg/dL: ?? -??IF ABLE TO DRINK, give 240 mL juice or regular (not diet) soda - IF NPO, give 30 gram glucose 40% oral gel massaged into buccal mucosa - IF UNCONSCIOUS OR UNCOOPERATIVE, give 25 gram dextrose IV - IF NO IV ACCESS, 1 mg glucagon IM. Recheck BG in 15 minutes. May repeat juice/soda, gel, dextrose or glucagon once per episode. Notify provider if hypoglycemia does not resolve after two treatments. Providers should consider the following: administering longer-acting treatments for the duration of active insulin or hypoglycemia agent for persistent hypoglycemia and re-evaluating active insulin orders before administering the next dose. 1 tube of Glutose-15 contains 15 grams of glucose (net weight of tube = 37.5 grams.), Routine Or dextrose 50% intravenous solution 25 gJump to med 25 g, Intravenous, EVERY 15 MIN PRN, Starting on Thu05/13/24 at 2335, Until 05/14/24 at 1834, Low blood sugar, ??Oral treatment preferred For Blood Glucose 50 to 70 mg/dL: ?? -??IF ABLE TO DRINK, give 120 mL juice or regular (not diet) soda - IF NPO, give 15 gram glucose 40% oral gel massaged into buccal mucosa - IF UNCONSCIOUS OR UNCOOPERATIVE, give 25 gram dextrose IV - IF NO IV ACCESS, give 1 mg glucagon IM. For Blood Glucose LESS than 50 mg/dL: ?? -??IF ABLE TO DRINK, give 240 mL juice or regular (not diet) soda - IF NPO, give 30 gram glucose 40% oral gel massaged into buccal mucosa - IF UNCONSCIOUS OR UNCOOPERATIVE, give 25 gram dextrose IV - IF NO IV ACCESS, 1 mg glucagon IM. Recheck BG in 15 minutes. May repeat juice/soda, gel, dextrose or glucagon once per episode. Notify provider if hypoglycemia does not resolve after two treatments. Providers should consider the following: administering longer-acting treatments for the duration of active insulin or hypoglycemia agent for persistent hypoglycemia and re-evaluating active insulin orders before administering the next dose. Warning Vesicant/Irritant Medication , Routine Or glucagon (Glucagen) (1 mg/mL) injection solution 1 mgJump to med 1 mg, Intramuscular, EVERY 15 MIN PRN, Starting on Thu05/13/24 at 2335, Until 05/14/24 at 1834, Low blood sugar, ??Oral treatment preferred For Blood Glucose 50 to 70 mg/dL: ?? -??IF ABLE TO DRINK, give 120 mL juice or regular (not diet) soda - IF NPO, give 15 gram glucose 40% oral gel massaged into buccal mucosa - IF UNCONSCIOUS OR UNCOOPERATIVE, give 25 gram dextrose IV - IF NO IV ACCESS, give 1 mg glucagon IM. For Blood Glucose LESS than 50 mg/dL: ?? -??IF ABLE TO DRINK, give 240 mL juice or regular (not diet) soda - IF NPO, give 30 gram glucose 40% oral gel massaged into buccal mucosa - IF UNCONSCIOUS OR UNCOOPERATIVE, give 25 gram dextrose IV - IF NO IV ACCESS, 1 mg glucagon IM. Recheck BG in 15 minutes. May repeat juice/soda, gel, dextrose or glucagon once per episode. Notify provider if hypoglycemia does not resolve after two treatments. Providers should consider the following: administering longer-acting treatments for the duration of active insulin or hypoglycemia agent for persistent hypoglycemia and re-evaluating active insulin orders before administering the next dose., Routine documented in this encounter Additional Health Concerns Infection Onset Date Last Indicated Resolved Time Rule Out Respiratory 05/13/2024 05/13/2024 025 1:15 AM EST documented as of this encounter Care Teams Electrocardiograph Technician Relationship Specialty Start Date End Date Ralph Bright PA [address] [place] [address] PCP - General Internal Medicine 05/09/24 documented as of this encounter
--- OUTSIDE RECORDS SUMMARY | 2024-05-24 14:22 | XMS_ITS | Clinical Summary ---
Author Organization [facility] Address [facility] [place] [address] Care Team Providers Care Flatwork Feeder Name Role Phone Ralph Bright Primary Care Provider + Allergies Active Allergy Reactions Criticality Noted Date [...] mouth daily as needed for Pain. Active pantoprazole (PROTONIX) 40 mg Tablet, Delayed Release (E.C.) Take 40 mg by mouth daily. Active rivaroxaban (XARELTO) 20 mg Tablet Take 1 tablet by mouth daily. 30 tablet 11 03/04/2017 Active metoprolol succinate (TOPROL-XL) 100 mg Tablet Sustained Release 24 hr Take 100 mg by mouth daily. Active FREESTYLE LITE STRIPS TEST THREE TIMES DAILY 0 08/27/2018 Active CHOLECALCIFEROL, VITAMIN D3, 2,000 unit Capsule take 1 capsule by mouth daily 0 07/29/2018 Active lamoTRIgine (LAMICTAL) 200 mg Tablet 200 mg daily. 0 08/29/2018 Active atorvastatin (Lipitor) 20 mg Tablet Take 1 tablet by mouth daily. 90 tablet 3 12/12/2020 Active lisinopriL (Zestril) 2.5 mg Tablet Take 1 tablet by mouth daily. 90 tablet 03/18/2022 Active magnesium chloride 64 mg magnesium Tablet Take 1 tablet by mouth 3 times daily. Active glipiZIDE XL (Glucotrol XL) 10 mg ER 24 hr tablet Take 10 mg by mouth daily. 04/26/2024 Active semaglutide (Ozempic) 0.25 mg or 0.5 mg(2 mg/1.5 mL) Pen Injector Inject 0.25 mg subcutaneously once a week. 04/27/2024 Active gabapentin (Neurontin) 300 mg capsule Take 300 mg by mouth daily. Active empagliflozin (Jardiance) 10 mg tablet Take 10 mg by mouth daily. Active AMIOdarone (Pacerone) 200 mg tablet Take 2 tablets by mouth daily. 60 tablet 3 05/14/2024 Active Active Problems Problem Noted Date Diagnosed Date Ventricular tachycardia 05/10/2024 Atrial fibrillation 07/14/2019 Chronic pain 07/14/2019 Diverticular [...] 80 (documented on ICD interrogation 07/18/14) ?? [id number] score = 3 ?? Patient initially reluctant to be anticoagulated as recommended Atrial pacemaker lead displacement 04/10/2014 Overview (04/10/2014): New finding at office follow up 04/10/2014 Plan lead reposition/replacement ICD (implantable cardioverter-defibrillator), luis enrique maier, in situ 01/11/2014 Overview (04/18/2014): New Atrial electrode: Guidant Dextrus Model# 4126-53 cm Serial# [id number] ?? Bipolar, steroid-tipped, active-fixation IS-1 lead ?? [...] at 10 V: No Old Ventricular electrode: [employer] Model# 0292 Serial# [id number] ?? Bipolar, steroid-tipped, active-fixation DF-4 lead ?? [...] Atrial electrode: Guidant Dextrus Model# 4136 Serial# [id number] ?? Bipolar, steroid-tipped, active-fixation IS-1 lead ?? Access: Axillary vein ?? Location Removed 04/17/2014 ?? Implanted: 01/10/2014 Pulse generator: [place] Incept[employer] Model# E162 Serial# [id number] ?? DDDR ICD ?? Location: Subcutaneous The [...] 10/17/2010 Overview (11/06/2016): ?? Heart catheterization in [facility] in 2007 with placement of a stent in an unspecified vessel ?? Repeat heart catheterization in 2008 with placement of stents to both the LAD and circumflex ?? Followup heart catheterization in 2008 showing stable results in both vessels ?? Recurrent chest discomfort in a somewhat atypical pattern beginning fall ?? Nuclear stress test at [facility] in [place], [place] May 02, 2013 during which he [...] mid-LAD lesion (in-stent restenosis) ?? Heart catheterization [facility] January 06, 2014 showing normal left main, hazy 50% mid LAD stenosis, mild diffuse disease throughout the circumflex, and moderate diffuse disease in the proximal RCA with a totally occluded distal RCA with brisk flow via bridging collaterals; fractional flow reserve on the LAD 0.85 ?? Nuclear stress test [facility] August 2016 reportedly showing a small area of inferior ischemia (final report pending) ?? Echo 11/06/16 showing inferior HK with EF 49%; no valvular disease Diabetes mellitus 10/17/2010 HTN (hypertension) 10/17/2010 Elevated cholesterol 10/17/2010 Resolved Problems Problem Noted Date Diagnosed Date Resolved Date Pressure injury of right buttock, stage 1 12/22/2018 03/04/2019 Encounters Date Type Department Care Team Description 05/11/2024 11:45 AM EST - 05/11/2024 12:15 PM EST Surgery Main Operating Room [place] [phone] Ta Negron MD CARDIOVERSION-ELECT MARAL (WRVU 2) 05/11/2024 11:39 AM EST Anesthesia Event Main Operating Room [place] [phone] China Magana MD Andrews, Mary K, CRNA 05/09/2024 10:31 PM EST - 05/14/2024 4:34 PM EST Hospital Encounter Heart and Vascular Unit Level 4 Wing B at [place] [phone] Bony Corcoran MD Gabani, MD Shane Peterson Xavier L, MD Stranathan, Christopher A, MD Ventricular tachycardia; Elevated troponin; Longstanding persistent atrial fibrillation; Persistent atrial fibrillation Discharge Disposition: Home 05/09/2024 Telephone Cardiology at [place] [phone] Mynor Espinoza MD 05/09/2024 External Results Transfer [place] [phone] 03/17/2024 10:00 AM EST - 03/17/2024 11:59 PM EST Hospital Encounter Non-Invasive Cardiology Lab [place] [phone] Discharge Disposition: Home from Last 3 Months Social History Tobacco Use Types Packs/Day Years Used Date Smoking Tobacco: Every Day e-Cigarettes Smokeless Tobacco: Never Comments:using e cigarettes Alcohol Use Standard Drinks/Week Comments No 0 (1 standard drink = 0.6 oz pur e alcohol) [facility] Utilities Answer Date Recorded In the past 12 months has Where electric, gas, oil, or water Clickst threatened to shut off services in your home? No 05/10/2024 Hunger Vital Sign Answer Date Recorded Within the past 12 months, y ou worried that your food would run out before you got the money to buy more. Never true 05/10/19 Within the past 12 months, t he [...] any time in the past 12 m ont, were you homeless or living in a retirement (including now)? No 05/10/2024 DH IPV Inpatient Questions Answer Date Recorded Does [...] Mass Index 24.12 05/09/2024 10:46 PM EST Plan of Treatment Upcoming Encounters Date Type Department Care Team (Late st Contact Info) Description 06/15/2024 10:00 AM EST Hospital Encounter Non-[place]vasive [place] [address] Arrived 08/09/2024 10:00 AM EDT Hospital Encounter Non-[place]vasive [place] [address] Arrived Health Maintenance Due Date Last Done Comments CT Colonography 1950 Colonoscopy 1950 Colorectal Cancer Screening 1950 FIT DNA 1950 FIT 1950 Sigmoidoscopy (10 year) with FIT yearly 1950 Sigmoidoscopy 1950 DM Opthalmology Exam 1959 Pneumoccocal Vaccine: 50+ (1 of 2 - PCV) 1968 Tetanus/Diphtheria/Pertussis Vaccines (1 - Tdap) 1968 Zoster vaccine (1 of 2) 1999 Advance Directive 2004 RSV Vaccine (1 - Risk 60-74 years 1-dose series) 2009 AAA Screen 2014 Covid-19 Vaccine (1 - 2023-2 5 season) 2023 Influenza (Flu) vaccine (1 o f 1 - Influenza standard series) 12/20/2023 DM Hemoglobin A1c 08/08/2024 05/10/2024 DM Urine Microalbumin yearly 05/11/2025 05/11/2024 DM Creatinine yearly 05/14/2025 05/14/2024, 05/13/2024, 05/12/2024, Additional history exists Hepatitis C Screening Completed 03/19/2021 Medical Devices Implanted Type Area Director Of Religious Activities Device Identifier Shelf Expiration Date Model / Serial / Lot Bsx : E162 : [id number] Implanted:2013 (Quantity not on file) Defibrillator [employer] E162 / [id number] / Description:Morales Cuetoi c : E162 OLIVIA LIN : [id number] When MRI is ordered @ [facility], Defibrillator E162 and Leads 0292 and 4126 combined together do not constitute an ImageReady MRI-Conditional System. The patient may not have a MRI with this system in place.Elvia BURDEN, ROMEO KNOWLES, MRI Safety Technologist 03/05/2018 Gdt [id number] Lead Guidant 4136 / [id number] / Description:When MRI is orde red @ [facility], Defibrillator E162 and Leads 0292 and 4126 combined together do not constitute an ImageReady MRI-Conditional System. The patient may not have a MRI with this system in place. BENSON Molina MRS, MRI Safety Technologist 03/05/2018 Bsx [id number] Lead [employer] 0292 / [id number] / Description:When MRI is orde red @ [facility], Defibrillator E162 and Leads 0292 and 4126 combined together do not constitute an ImageReady MRI-Conditional System. The patient may not have a MRI with this system in place. BENSON Molina MRSC, MRI Safety Technologist 03/05/2018 Gdt [id number] [id number] Lead Guidant 4136 / [id number] / Description:When MRI is orde red @ [facility], Defibrillator E162 and Leads 0292 and 4126 [...] POC, GLUCOSE Routine 05/14/2024 7:56 AM EST SCAN DOC: TELEMETRY STRIPS 05/14/2024 7:35 AM EST POC, GLUCOSE Routine 05/14/2024 4:34 AM EST SCAN DOC: TELEMETRY STRIPS 05/14/2024 2:44 AM EST BASIC METABOLIC PANEL Routine 05/14/2024 2:21 AM EST CBC (WITH DIFF) Routine 05/14/2024 2:21 AM EST MAGNESIUM Routine 05/14/2024 2:21 AM EST POC, GLUCOSE Routine 05/14/2024 12:05 AM EST RESPIRATORY PANEL PCR Routine 05/13/2024 11:17 PM EST POC, GLUCOSE Routine 05/13/2024 10:46 PM EST POC, GLUCOSE Routine 05/13/2024 8:21 PM EST SCAN DOC: TELEMETRY STRIPS 05/13/2024 8:07 PM EST SCAN DOC: TELEMETRY STRIPS 05/13/2024 7:47 PM EST POC, GLUCOSE Routine 05/13/2024 4:11 PM EST SCAN DOC: TELEMETRY STRIPS 05/13/2024 3:22 PM EST POC, GLUCOSE Routine 05/13/2024 1:17 PM EST POC, GLUCOSE Routine 05/13/2024 12:03 PM EST POC, GLUCOSE Routine 05/13/2024 11:43 AM EST SCAN DOC: TELEMETRY STRIPS 05/13/2024 8:39 AM EST POC, GLUCOSE Routine 05/13/2024 7:15 AM EST BASIC METABOLIC PANEL Routine 05/13/2024 4:00 AM EST CBC (WITH DIFF) Routine 05/13/2024 4:00 AM EST MAGNESIUM Routine 05/13/2024 4:00 AM EST POC, GLUCOSE Routine 05/13/2024 3:59 AM EST SCAN DOC: TELEMETRY STRIPS 05/13/2024 3:43 AM EST EKG 12-LEAD STAT 05/12/2024 11:40 PM EST Persistent atrial fibrillation SCAN DOC: TELEMETRY STRIPS 05/12/2024 11:23 PM EST POC, GLUCOSE Routine 05/12/2024 11:05 PM EST SCAN DOC: TELEMETRY STRIPS 05/12/2024 8:06 PM EST SCAN DOC: TELEMETRY STRIPS 05/12/2024 7:59 PM EST POC, GLUCOSE Routine 05/12/2024 7:36 PM EST POC, GLUCOSE Routine 05/12/2024 5:21 PM EST SCAN DOC: TELEMETRY STRIPS 05/12/2024 4:23 PM EST MAGNESIUM Routine 05/12/2024 3:55 PM EST BASIC METABOLIC PANEL Routine 05/12/2024 3:55 PM EST POC, GLUCOSE Routine 05/12/2024 3:32 PM EST SCAN DOC: TELEMETRY STRIPS 05/12/2024 2:31 PM EST POC, GLUCOSE Routine 05/12/2024 11:57 AM EST SCAN DOC: TELEMETRY STRIPS 05/12/2024 7:49 AM EST SCAN DOC: TELEMETRY STRIPS 05/12/2024 7:14 AM EST POC, GLUCOSE Routine 05/12/2024 7:12 AM EST BASIC METABOLIC PANEL Routine 05/12/2024 3:19 AM EST CBC (WITH DIFF) Routine 05/12/2024 3:19 AM EST MAGNESIUM Routine 05/12/2024 3:19 AM EST POC, GLUCOSE Routine 05/12/2024 3:18 AM EST SCAN DOC: TELEMETRY STRIPS 05/12/2024 1:01 AM EST POC, GLUCOSE Routine 05/11/2024 11:16 PM EST SCAN DOC: TELEMETRY STRIPS 05/11/2024 10:22 PM EST POC, GLUCOSE Routine 05/11/2024 8:06 PM EST SCAN DOC: TELEMETRY STRIPS 05/11/2024 7:40 PM EST POC, GLUCOSE Routine 05/11/2024 4:54 PM EST POC, GLUCOSE Routine 05/11/2024 4:52 PM EST EKG 12-LEAD STAT 05/11/2024 12:40 PM EST Persistent atrial fibrillation SCAN DOC: TELEMETRY STRIPS 05/11/2024 12:31 PM EST Cardioversion Elective Arrhythmia External (09774) 05/11/2024 11:34 AM EST Afib/flutter POC, GLUCOSE Routine 05/11/2024 11:03 AM EST CARDIOVERSION-OR Routine 05/11/2024 10:5 4 AM EST MAGNESIUM Routine 05/11/2024 8:36 AM EST BASIC METABOLIC PANEL Routine 05/11/2024 8:36 AM EST CBC (WITH DIFF) Routine 05/11/2024 8:36 AM EST SCAN DOC: TELEMETRY STRIPS 05/11/2024 7:35 AM EST SCAN DOC: TELEMETRY STRIPS 05/11/2024 7:16 AM EST POC, GLUCOSE Routine 05/11/2024 7:12 AM EST U ALBUMIN/CRE RATIO Routine 05/11/2024 1 2:59 AM EST POC, GLUCOSE Routine 05/11/2024 12:47 AM EST POC, GLUCOSE Routine 05/10/2024 10:13 PM EST POC, GLUCOSE Routine 05/10/2024 8:55 PM EST SCAN DOC: TELEMETRY STRIPS 05/10/2024 8:29 PM EST POC, GLUCOSE Routine 05/10/2024 5:41 PM EST POC, GLUCOSE Routine 05/10/2024 12:17 PM EST ECHO COMPLETE W CONTRAST Routine 05/10/2024 9:34 AM EST Ventricular tachycardia Elevated troponin SCAN DOC: TELEMETRY STRIPS 05/10/2024 7:40 AM EST POC, GLUCOSE Routine 05/10/2024 7:07 AM EST TROPONIN-T, HIGH SENSITIVITY 3 HOUR PERFORMABLE DIAMOND 05/10/2024 3:56 AM EST RAPID COVID-19 PCR ([facility]D/[facility]) STAT 05/10/2024 1:48 AM EST TROPONIN-T, HIGH SENSITIVITY 1 HOUR PERFORMABLE DIAMOND 05/10/2024 1:17 AM EST EKG 12-LEAD STAT 05/10/2024 12:42 AM EST Ventricular tachycardia TROPONIN-T, HIGH SENSITIVITY INITIAL PERFORMABLE STAT 05/10/2024 12:21 AM EST PROTHROMBIN TIME STAT 05/10/2024 12:2 1 AM EST TSH CASCADE STAT 05/10/2024 12:21 AM EST PRO-BRAIN NATRIURETIC PEPTIDE STAT 05/10/2024 12:21 AM EST PHOSPHORUS STAT 05/10/2024 12:21 AM EST MAGNESIUM STAT 05/10/2024 12:21 AM EST TROPONIN - SERIES STAT 05/10/2024 12: 21 AM EST COMPREHENSIVE METABOLIC PANEL STAT 05/10/2024 12:21 AM EST HEMOGLOBIN A1C Add-On 05/10/2024 12:20 AM EST CBC (WITH DIFF) STAT 05/10/2024 12:20 AM EST ECHO SCAN (SCAN) 05/10/2024 12:0 0 AM EST SCAN DOC: TELEMETRY STRIPS 05/09/2024 11:43 PM EST POC, GLUCOSE Routine 05/09/2024 10:43 PM EST MISC EXTERNAL CARDIOLOGY RESULT Routine 05/09/2024 5:52 PM EST PRO ICD INTERROGATION REMOTE UP TO 90 DAYS Routine 05/09/2024 3:00 AM EST HC HEPATITIS C ANTIBODY Routine 03/19/2021 3:50 PM EST Abnormal liver function test from Last 3 Months or Most Recently Relevant to Health Maintenance Results * Scan Doc: ECG (05/17/2024 12:00 AM EST) Narrative 05/17/2024 12:00 AM EST Ordered by an unspecified provider. Scanning Provider MEDIA MGR SCAN EXT O RDR/RSLT * (ABNORMAL) POC, GLUCOSE (05/14/2024 2:52 PM EST) Only the most recent of33 resultswithin the time period is included. Glucometer, POC 254(H) 65 - 199 mg/dL 05/14/2024 2:52 PM EST [facility] Comment:Supplemental ranges: <140 mg/dL before meals <180 mg/dL all other times of the day. Blood CAPILLARY BLOOD / Unknown 05/14/2024 2:52 PM EST 05/14/2024 2:52 PM EST Gordon Lynn MD POINT OF CARE TEST O RDERABLES [facility] [place] [address] * Scan Doc: Telemetry Strips (05/14/2024 7:35 AM EST) Only the most recent of23 resultswithin the time period is included. Narrative 05/14/2024 7:35 AM EST Ordered by an unspecified provider. Scanning Provider MEDIA MGR SCAN EXT O RDR/RSLT * (ABNORMAL) CBC (with Diff) (05/14/2024 2:21 AM EST) Only the most recent of5 resultswithin the time period is included. White Blood Cell 7.96 4.00 - 9.50 x10(3)/mc L 05/14/2024 2:50 AM EST [facility] Red Blood Cell 4.53(L) 4.58 - 5.54 x10(6)/mc L 05/14/2024 2:50 AM EST [facility] Hemoglobin 13.4(L) 13.7 - 16.5 [...] - 0.90 x10(3)/mc L 05/14/2024 2:50 AM EST [facility] Eos % 7.7 % 05/14/2024 2:50 AM EST [facility] Eos Absolute 0.61(H) 0.00 - 0.40 x10(3)/mc L 05/14/2024 2:50 AM EST [facility] Basophil % 0.9 % 05/14/2024 2:50 AM EST [facility] Baso Absolute 0.07 0.00 - 0.10 x10(3)/mc L 05/14/2024 2:50 AM EST [facility] Immature Gran % 0.6 % 2:50 AM [facility] Immature Gran Absolute 0.05(H) 0.00 - 0.04 x10(3)/mc L 05/14/2024 2:50 AM [facility] Blood VENOUS BLOOD SPECIMEN / Unknown Venipuncture / Unknown 05/14/2024 2:21 AM EST 05/14/2024 2:35 AM EST Gordon Lynn MD HEMATOLOGY ORDERABLE S [facility] [place] [address] * Magnesium (05/14/2024 2:21 AM EST) Only the most recent of6 resultswithin the time period is included. Magnesium 0.78 0.69 - 1.07 mMol/L 05/14/2024 3:09 AM [facility] Blood VENOUS BLOOD SPECIMEN / Unknown Venipuncture / Unknown 05/14/2024 2:21 AM EST 05/14/2024 2:35 AM EST Gordon Lynn [place] [address] * Basic Metabolic Panel (05/14/2024 2:21 AM EST) Only the most recent of5 resultswithin the time period is included. Glucose 161 65 - 199 mg/dL 05/14/2024 [...] AM EST Gordon Lynn MD CHEMISTRY ORDERABLES [facility] [place] [place] [address] * Respiratory Panel PCR (05/13/2024 11:17 PM EST) Respiratory Panel PCR Negative Negative 05/14/2024 1:15 [...] Not Detected Not Detected 05/14/2024 1:15 AM EST [facility] Respiratory Syncytial Virus Not Detected Not Detected 05/14/2024 1:15 AM EST [facility] Chlamydophila pneumoniae Not Detected Not Detected 05/14/2024 1:15 AM EST [facility] Mycoplasma pneumoniae Not Detected Not Detected 05/14/2024 1:15 AM EST [facility] Swab SPECIMEN FROM NASOPHARYNGEAL STRUCTURE / Unknown Non Blood Collection / Unknown 05/13/2024 11:17 PM EST 05/13/2024 11:33 PM EST Narrative [facility] - 05/14/2024 1:15 AM EST Respiratory Panels are performed on the Practice Ignition using multiplexed PCR nucleic acid detection. Negative results do not preclude respiratory infection and should not be used as the sole basis for diagnosis, treatment, or other management decisions. Rafael Zamora MD MICROBIOLOGY - GENE RAL ORDERABLES [facility] [place] [phone] * EKG 12 Lead (05/12/2024 11:40 PM EST) Only the most recent of3 resultswithin the time period is included. Ventricular rate 62 BPM MUSE SYSTEM Atrial Rate 62 BPM MUSE SYSTEM P-R Interval 300 ms MUSE SYSTEM QRS Duration 140 ms MUSE SYSTEM Q-T Interval 490 ms MUSE SYSTEM QTC Calculated (Bezet) 497 ms MUSE SYSTEM Calculated P Falcon 64 degrees MUSE SYSTEM Calculated R Falcon -62 degrees MUSE SYSTEM Calculated T Falcon -18 degrees MUSE SYSTEM INTERPRETATION Atrial-paced rhythm with prolonged AV conduction Occasional ventricular-pac ed complexes Left axis deviation Non-specific intra-ventricul ar conduction block Minimal voltage criteria for LVH, may be normal variant ( Saturnino product ) Inferior infarct , age undetermined Abnormal ECG When compared with ECG of 11-MAY-2024 12:40, ventricular-pac ed complexes are now present Confirmed by MD Law Danette ([id number]) on 05/13/2024 3:00:54 PM MUSE SYSTEM 05/12/2024 11:4 0 PM EST 05/13/2024 3:00 PM EST Jero Eric MD ECG ORDERABL ES Performing Organization Address City/[facility]/ZIP Co de Phone Number MUSE SYSTEM * U Albumin/Cre Ratio (05/11/2024 12:59 AM EST) Albumin, Urine 45.7 mg/L 05/11/2024 1:46 AM EST [facility] Creatinine, Urine 155 mg/dL 025 1:46 AM EST [facility] Albumin / Creatinine Ratio, Urine 29 0 - 29 mcg/mg Cr 05/11/2024 1:46 AM EST [facility] Comment: Reference Ranges: ?? <30 [...] EST Jero Eric MD URINE ORDERA BLES [facility] [place] [address] * ECHO COMPLETE W CONTRAST (05/10/2024 9:34 AM EST) EF 47 HEARTLAB SYSTEM Anatomical Region Laterality Modality Cardiac Other 05/10/2024 8:10 AM EST Narrative 05/10/2024 10:21 AM EST ? Version 2 [address] [place] [address] ? Echocardiogram Report Name: SHAHNAZ SANTIAGO ? Study Date: 05/10/2024 08:10 AMBP: 106/69 mmHg : 1950 ? Height: 185 cm ? Account: [id number] Age: 73 yrs ? Weight: 85 kg Gender: Male ?BSA: 2.1 m2 Ordering Physician: JERO ERIC Referring Physician: SHAD Performed By: Magda Perez Reason For Study: Ventricular tachycardia; Elevated troponin Exam Location: [facility]. Interpretation Summary 1. Milldy increased left ventriclar [...] EF remains in the same range. Procedure Complete-02734. Image enhancement Optison was used for left [...] Nelson MD - 05/10/2024 Version 2 [address] [place] [address] Echocardiogram Report Name: SHAHNAZ SANTIAGO Study Date: 508:10 AMBP: 106/69 mmHg : 1950 Height: 185 cm Account: [id number] Age: 73 yrs Weight: 85 kg Gender: Male BSA: 2.1 m2 Ordering Physician: JERO ERIC Referring Physician: UNKNOWN Performed By: Magda Perez Reason For Study: Ventricular tachycardia; Elevated troponin Exam Location: [facility]. Interpretation Summary 1. Milldy increased left ventriclar [...] EF remains in the same range. Procedure Complete-[id number]. Image enhancement Optison was used for left [...] Jero Eric MD ECHO ORDERAB LES * Troponin-T, High Sensitivity 3 Hour (05/10/2024 3:56 AM EST) Troponin-T, High Sensitivity 15 <=22 ng/L 05/10/2024 4:28 AM EST [facility] Comment: This patient's troponin T [...] troponin value can be found in the [facility] Laboratory Test Catalog Troponin - [email or web address]/catalogs/565/files/[email or web address] Reference: Fourth [place] Definition of Myocardial Infarction. Journal of the [place] College [employer] 2018;72:6316-5655 Troponin-T, HS 3 hr delta 2 ng/L 05/10/2024 4:28 AM EST [facility] Comment:The 3 hour Troponin T delta value is the absolute difference between the Troponin T concentrations of the initial and subsequent sample collected between 2 h: 45 min and 6 h following the initial collection Blood VENOUS BLOOD SPECIMEN / Unknown Venipuncture / Unknown 05/10/2024 3:56 AM EST 05/10/2024 4:01 AM EST Jero Eric MD CHEMISTRY OR DERABLES [facility] [place] [address] * COVID-19 PCR (05/10/2024 1:48 AM EST) SARS-CoV-2 RNA (Rapid) Not Detected Not Detected 05/10/2024 3:28 AM EST [facility] Swab SPECIMEN FROM NASOPHARYNGEAL STRUCTURE / Unknown Non Blood Collection / Unknown 05/10/2024 1:48 AM EST 05/10/2024 1:49 AM EST Jero Eric MD MICROBIOLOGY - GENERAL ORDERABLES [facility] [place] [address] * Troponin-T, High Sensitivity 1 Hour (05/10/2024 1:17 AM EST) Troponin-T, High Sensitivity 13 <=22 ng/L 05/10/2024 1:52 AM EST [facility] Comment: This patient's troponin T [...] troponin value can be found in the [facility] Laboratory Test Catalog Troponin - [email or web address]/catalogs/565/files/55543 Reference: Fourth [place] Definition of Myocardial Infarction. Journal of the [place] College [employer]iology 2018;72:3431-0461 Troponin-T, HS 1 hr delta 0 ng/L 05/10/2024 1:52 AM EST [facility] Comment:The 1 hour Troponin T delta value is the absolute difference between the Troponin T concentrations of the initial and subsequent sample collected between 45 - 120 minutes following the initial collection. Blood VENOUS BLOOD SPECIMEN / Unknown Venipuncture / Unknown 05/10/2024 1:17 AM EST 05/10/2024 1:27 AM EST Jero Eric MD CHEMISTRY OR DERABLES [facility] [place] [address] * Troponin-T, High Sensitivity (05/10/2024 12:21 AM EST) Pathologist [facility] Troponin-T, High Sensitivity Initial 13 <=22 ng/L 05/10/2024 1:16 AM EST [facility] Comment: This patient's troponin T [...] troponin value can be found in the [facility] Laboratory Test Catalog Troponin - https://[email or web address]/catalogs/565/files/82807 Reference: Fourth [place] Definition of Myocardial Infarction. Journal of the [place] College of Cardiology 2018;72:6219-4746 Blood VENOUS BLOOD SPECIMEN / Unknown Venipuncture / Unknown 05/10/2024 12:21 AM EST 05/10/2024 12:38 AM EST Jero Eric MD CHEMISTRY OR DERABLES Performing Organization Address City/[facility]/ZIP Co de Phone Number [facility] [place] [address] * [facility] [place] (05/10/2024 12:21 AM EST) Pathologist [facility] Thyroid Stimulating Hormone 0.63 0.27 - 4.20 mcIU/mL 05/10/2024 1:16 AM EST [facility] Blood VENOUS BLOOD SPECIMEN / Unknown Venipuncture / Unknown 05/10/2024 12:21 AM EST 05/10/2024 12:38 AM EST Jero Eric MD CHEMISTRY OR DERABLES Performing Organization Address [facility] Co de Phone Number [facility] [facility] [place] [address] * (ABNORMAL) Prothrombin Time (05/10/2024 12:21 AM EST) [facility] Prothrombin Time 16.1(H) 9.4 - 12.5 sec 05/10/2024 12:46 AM EST [facility] International Normalization Ratio 1.4 <=4.9 05/10/2024 12:46 AM EST [facility] Comment: An INR < 2.0 [...] MD HEMATOLOGY O RDERABLES Performing Organization Address City/[facility]/ZIP Co de Phone Number [facility] [place] [address] * Phosphorus (05/10/2024 12:21 AM EST) Pathologist [facility] Phosphorus 2.9 2.5 - 4.5 mg/dL 05/10/2024 1:16 AM EST [facility] Blood VENOUS BLOOD SPECIMEN / Unknown Venipuncture / Unknown 05/10/2024 12:21 AM EST 05/10/2024 12:38 AM EST Jero Eric MD CHEMISTRY OR DERABLES Performing Organization Address City/[facility]/ZIP Co de Phone Number [facility] [place] [address] * (ABNORMAL) pro-Brain Natriuretic Peptide (05/10/2024 12:21 AM EST) NT-proBNP 1,065(H) <=124 pg/mL 05/10/2024 1:16 AM EST [facility] Blood VENOUS BLOOD SPECIMEN / Unknown Venipuncture / Unknown 05/10/2024 12:21 AM EST 05/10/2024 12:38 AM EST Jero Eric MD CHEMISTRY OR DERABLES Performing Organization Address City/[facility]/ZIP Co de Phone Number [facility] [place] [address] * (ABNORMAL) Comprehensive metabolic panel (05/10/2024 12:21 AM EST) Glucose 156 65 - 199 mg/dL 05/10/2024 1:16 AM [facility] Comment:Glucose Concentratio n >=200 mg/dL plus symptoms is consistent with Diabetes Mellitus. Blood Urea Nitrogen 18 10 - 20 mg/dL 05/10/2024 1:16 AM EST [facility] Creatinine 0.92 0.80 - 1.50 mg/dL 05/10/2024 1:16 AM [facility] Sodium 140 135 - 145 mMol/L 05/10/2024 1:16 AM [facility] Potassium 4.6 3.5 - 5.0 mMol/L 05/10/2024 1:16 AM EST [facility] Chloride 105 98 - 107 [...] Total 0.3 <=1.3 mg/dL 05/10/2024 1:16 AM [facility] Est Glomerular Filtration Rate - Male 87 mL/min/1. 73 m?? 05/10/2024 1:16 AM [facility] Comment: This [...] MD CHEMISTRY OR DERABLES Performing Organization Address City/[facility]/ZIP Co de Phone Number [facility] [place] [address] * (ABNORMAL) Hemoglobin A1c (05/10/2024 12:20 AM EST) Hemoglobin A1c 8.6(H) 4.3 - 5.6 % 05/10/2024 1:51 AM EST [facility] Comment: Per ADA guidelines, without [...] red blood cell turnover may not be termite control representative of glycemic control. Reference Interval: 4.3 - 5.6% 5.7 - 6.4%: Consistent with prediabetes >=6.5%: Consistent with diagnosis of diabetes mellitus Estimated Average Glucose 05/10/2024 1:51 AM EST [facility] Comment:Estimated Average Gl ucose not appropriate for patients over 70 years of age. Blood VENOUS BLOOD SPECIMEN / Unknown Venipuncture / Unknown 05/10/2024 12:20 AM EST 05/10/2024 12:38 AM EST Narrative [facility] - 05/10/2024 1:51 AM EST Estimated average glucose (eAG) is calculated from the equation described in: Raymundo DM, Wanda J, Emery R, et al. ??Translating the A1C assay into estimated average glucose values. ??Diabetes Care 2008:31(8):0140-3182. Additional resources are available on the ADA website (diabetes.org). Bony Corcoran MD CHEMISTRY ORDERABLES Performing Organization Address City/[facility]/ZIP Co de Phone Number [facility] [place] [address] * Scan Doc: Echo (05/10/2024 12:00 AM EST) Anatomical Region Laterality Modality Cardiac Other Narrative 05/10/2024 12:00 AM EST Ordered by an unspecified provider. Scanning Provider MEDIA MGR SCAN EXT O RDR/RSLT * External Cardiology Result (05/09/2024 5:52 PM EST) Anatomical Region Laterality Modality Other Historical Provider EXTERNAL CARDIOLO GY RESULT * Cardiac Device Check - Remote (05/09/2024 3:00 AM EST) Anatomical Region Laterality Modality Other 05/09/2024 3:00 AM EST Shaheen Molina MD IMPLANTABLE CARDIAC DEVICE * Hepatitis C Antibody (03/19/2021 3:50 PM EST) Hepatitis C Antibody Negative Negative [facility] Blood 03/19/2021 3:50 PM EST 03/19/2021 4:21 PM EST Narrative Resulting Agency Comment Spec In Lab Elsie Cristobal MD CHEMISTRY ORDERABLES [facility] [place] [address] from Last 3 Months or Most Recently Relevant to Health Maintenance Advance Directives * Attempt Cardiopulmonary Resuscitation - Inpatient (Latest Code Status on File) Date Activated Date Inactivated Comments 05/12/2024 2:54 PM 05/14/2024 6:34 PM Question Answer Comments Code Status decision made by: Patient Content of discussion: Patient requests full resucitation attempts incuding intubation (if needed) with the understanding he would not want to be kept on life support half-way. * Do NOT Attempt CPR - Inpatient Date Activated Date Inactivated Comments 05/10/2024 1:39 AM 05/12/2024 2:54 PM Question Answer Comments Code Status decision made by: Patient Content of discussion: patient does not want resuscitated in the event of cardiac or respiratory arrest Independent of Code Status d ecision, are there any PRE Arrest limitations (Intubation, Pressors, Cardioversion / Pacing, etc)? No Per policy, patient may rece maral all applicable life support PRE arrest: Acknowledged * Attempt Cardiopulmonary Resuscitation - Inpatient Date Activated Date Inactivated Comments 05/10/2024 12:10 AM 05/10/2024 1:39 AM Question Answer Comments Code Status decision made by: Patient * Full Code Date Activated Date Inactivated Comments 04/17/2014 1:29 [...] is based on Patients wishes. Care Teams Flatwork Feeder Relationship Specialty Start Date End Date Ralph Bright PA [address] [address] PCP - General Internal Medicine 05/09/24
--- OUTSIDE RECORDS SUMMARY | 2024-05-24 14:22 | XMS_ITS | Encounter Summary ---
Author Organization [facility] [place] [address] Care Team Providers Care Mixed Signal Design Engineer Name Role Phone Ralph Bright Primary Care Provider + Reason for Visit * Auth/Cert (Routine) Specialty Diagnoses / Procedures Referred By Contac t Referred To Contact Diagnoses Ventricular tachycardia Defibrillator discharge Procedures CHICHI JOANI Santiago Eric MD [facility] [place] [address] [facility] [[email or web address]] Referral ID Status Reason Start Date Expiration Date Visits Re quested Visits Authorized [id number] 1 1 Encounter Details Date Type Department Care Team (Late st Contact Info) Description 05/11/2024 11:39 AM EST Anesthesia [place] [address] China Magana MD [facility] [place] [address] Rosanna James CRNA [facility] [place] [address] Anesthesia Record Procedure Summary Procedure Name Responsible Anesthesiologist Anesthesia Start Time Anesthesia Stop Time CARDIOVERSION-ELECT MARAL (WRVU 2) China Magana MD 05/11/24 1139 05/11/24 1220 Events Date Time Event Comment 05/11/2024 1135 1139 AN Verify 1139 Start AICD deactivate d by EP 1139 An Start Data 1143 Anesthesia Ready 1144 Quick Note Cardioverted x1 200 j 1147 an elliot now PACU hold 1152 Quick Note AICD activated by EP 1211 Quick Note PACU bypass . P t baseline vitals and A&Ox4. Report called to charge nurse on floor and will give report to bedside nurse in the unit. 1212 an stop data 1220 Recovery or ICU Handoff Elsa ent care was transferred to the destination unit staff after review of the patient's medical history, current anesthetic/surgical status and plan, according to the Provider Handoff Checklist. 1220 Stop Meds Name Total propofoL 60 mg * Agents Name O2 Air N2O O2 Auxiliary Flowmeter 1 * Blood No blood administrations on file. Lines, Drains, and Airways Type Details Placement Removal PIV 05/10/24; 0600; [id number] catheter system; 18 gauge; median cubital vein (antecubital fossa), right; Anatomical Landmarks; VASC ACCCESS; removed per policy/procedure, catheter/device intact; 05/14/24; 1555 05/10/24 0600 by Crow Felton, RN 05/14/24 1555 by Saeed Richardson, RN documented in this encounter Social History Tobacco Use Types Packs/Day Years Used Date Smoking Tobacco: Every Day e-Cigarettes Smokeless Tobacco: Never Comments:using e cigarettes Alcohol Use Standard Drinks/Week Comments No 0 (1 standard drink = 0.6 oz pur e alcohol) [facility] Utilities Answer Date Recorded In the past 12 months has [employer], gas, oil, or water [employer] threatened to shut off services in your [...] any time in the past 12 m onths, were you homeless or living in a long-term (including now)? No 05/10/2024 DH IPV Inpatient [...] OR Notes * Anesthesia Postprocedure Evaluation - China Magana MD - 05/11/2024 1:16 PM EST Department of Anesthesiology Post-procedure Note Patient: Marquez Hendrix Procedure Summary Date: 05/11/24 Room / Location: [facility] MINOR SURGERY 2 / [facility] MAIN OR Anesthesia Start: 1139 Anesthesia Stop: 1220 Procedure: CARDIOVERSION-ELECTIVE (WRVU 2) Diagnosis: (Afib/flutter) Surgeons: Ta Negron MD Responsible Provider: China Magana MD Anesthesia Type: MAC ASA Status: 3 All Anesthesia Providers: Anesthesiologist: China Magana MD CLINICAL DATA SPECIALIST: Rosanna James CRNA Vitals Value Taken Time BP 124/71 05/11/24 1221 Temp Pulse 60 05/11/24 1316 Resp 17 05/11/24 1221 SpO2 98 % 05/11/24 1221 Pain Score Vitals shown include unfiled device data. Patient Location: PACU/[facility] Level of Consciousness: Awake and Alert Pain Management: Satisfactory Analgesia PONV: None Cardiovascular Status: At Baseline Respiratory Status: At Baseline Postoperative Fluid Status: Intravascular EUvolemia Possible Anesthetic Complications: NONE apparent at time of evaluation Final Primary Anesthesia Type: General (The anesthetic type performed was the same as planned.) Comments: * Anesthesia Preprocedure Evaluation - China Magana MD - 05/11/2024 11:26 AM EST Pre-Anesthesia Evaluation for: Marquez Hendrix a 73 y.o. male. Procedure(s): CARDIOVERSION-ELECTIVE (WRVU 2) Patient Active Problem List Diagnosis Date Noted ASCVD (arteriosclerotic cardiovascular disease) 10/17/2010 *Ventricular tachycardia 05/10/2024 Atrial fibrillation 07/14/2019 Chronic pain 07/14/2019 Diverticular disease 07/14/2019 Dysphagia 07/14/2019 Magnesium deficiency 07/14/2019 Obstructive sleep apnea syndrome 07/14/2019 Rib pain on right side 07/14/2019 Pain in right wrist 02/17/2018 Closed fracture of lower end of right radius with routine healing 08/12/2017 Contusion of left knee 08/12/2017 Typical atrial flutter 07/18/2014 Atrial pacemaker lead displacement 04/10/2014 ICD (implantable cardioverter-defibrillator), dual, in situ 01/11/2014 Hypertension 01/09/2014 Hypomagnesemia 01/09/2014 Sustained VT (ventricular tachycardia) 01/08/2014 Depression 01/06/2014 Dermatitis 06/17/2013 Irritant contact dermatitis 05/27/2013 T2DM (type 2 diabetes mellitus) 05/10/2013 Gastroesophageal reflux disease 05/10/2013 IBS (irritable bowel syndrome) 11/17/2011 Coronary atherosclerosis 04/11/2011 Nephrolithiasis 04/11/2011 Diabetes mellitus 10/17/2010 HTN (hypertension) 10/17/2010 Elevated cholesterol 10/17/2010 History reviewed. No pertinent past medical history. Past Surgical History: Procedure Laterality Date PRO CARDIOVERSION ELECTIVE ARRHYTHMIA EXTERNAL N/A 10/23/2020 CARDIOVERSION-ELECTIVE (WRVU 2.25) performed by Fantasma Matos MD at [facility] MAIN OR PRO UPPER GI ENDOSCOPY, BIOPSY 12/17/2011 EGD WITH BIOPSY performed by KYRA VYAS at [facility] ENDOSCOPY Social History Tobacco Use Smoking status: Every Day Types: e-Cigarettes Smokeless tobacco: Never Tobacco comments: using e cigarettes Substance Use Topics Alcohol use: No Social History Substance and Sexual Activity Drug Use No Allergies Allergen Reactions Latex Other reaction(s): trouble breathing/moving Adhesive Tape Rash tegaderm ok Use paper tape Other reaction(s): rash Medications: MAR and/or home medications have been reviewed. Physical Exam: Preprocedure Vitals Current as of 05/11/24 1126 BP: 102/62 Pulse: 56 Resp: 18 SpO2: 97 Temp: 36.6 ??C (97.8 ??F) Height: 185.4 cm (6' 1) (05/09/24) Weight: 82.5 kg (181 lb 12.8 oz) (05/11/24) BMI: 23.99 IBW: 79.9 kg (176 lb 1.7 oz) Last edited 05/11/24 1103 by AC Airway Assessment: Mallampati: II TM distance: >3 FB Neck ROM: full Cardiovascular Assessment: Rhythm: irregular Rate: abnormal Pulmonary Assessment: pulmonary exam normal Dental Assessment: - normal exam Misc Assessment: IV access: Peripheral line Other exam findings: Aox3 Last Filed Perioperative Cognitive Screening None Anesthesia Plan: ASA 3 MAC, with a(n) intravenous induction 73 y.o. male, history of coronary artery disease, ischemic cardiomyopathy (LVEF 49% via echo in 2017; 47% Paz's biplane today), who has been followed in the [place] device clinic. His supervisor shipping is Dr Andersen. He has a history of a dual-chamber [employer] ICD, that was placed for primary prevention [id number]. 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 Ventricular and atrial pacing burden has generally been low. ?? Repeat heart catheterization in 2008 with placement of stents to both the LAD and circumflex ?? Followup heart catheterization in 2008 showing stable results in both vessels ?? Nuclear stress test [facility] August 2016 reportedly showing a small area of inferior ischemia (final report pending) ?? Echo 11/06/16 showing inferior HK with EF 49%; no valvular disease 73 y.o. male with a history of paroxysmal atrial fibrillation and mmVT, dual chamber ICD. He has had no significant arrhythmia episodes in the last year, until 05/09 - AF/Flutter (atypical) and also 'slow' mmVT at 144 bpm. This was succesfully treated with 0.9 joules after 10 rounds of ATP failed toconvert the rhythm. His symptoms of fatigue, LLOYD, malaise precede these events by about a month. BS 174 treated with 4 units lispro Assessment and Plan Asa 3for MAC Standard ASA monitors plus arterial line MAC/TIVA Risk and benefits discussed with patient and family members. Discussion regarding TOOTIE and treatmentas well as PONV and pain management post procedure. Blood transfusions were discussed but unlikely to occur. The patient was informed of the risks, benefits and alternatives of anesthesia. These risks included, but were not limited to, post-operative nausea and/or vomiting, pain, sore throat, dental/lip trauma, and other rare but serious complications such as major organ damage, awareness, severe allergicreactions, position-related nerve injuries, and need blood transfusions. Patient understood; all questions were sought, answered and the patient agreed to proceed. Consent was signed and placed in chart. Allergies to adhesive tape and latex. Informed Consent: Anesthetic plan and risks discussed with patient. Plan discussed with CLINICAL DATA SPECIALIST. Anesthesia Screening documented in this encounter Plan of Treatment Upcoming Encounters Date Type Department Care Team (Late st Contact Info) Description 06/15/2024 10:00 AM EST Hospital Encounter [place] [address] Arrived 08/09/2024 10:00 AM EDT Hospital Encounter [place] [address] Arrived documented as of this encounter Visit Diagnoses Not on filedocumented in this encounter Administered Medications Inactive Administered Medications - up to 3 most recent administrations Medication Order MAR Action Action Date Dose Rate Site propofoL (Diprivan) 10 mg/mL bolus injection (Anesthesia) Intravenous, PRN, Starting on Thu05/11/24 at 1144, Until Thu05/11/24 at 1222, Anesthesia Intra-op Given 05/11/2024 11:44 AM EST 60 mg documented in this encounter Care Teams Mixed Signal Design Engineer Relationship Specialty Start Date End Date Ralph Bright PA [address] [facility] [address] PCP - General Internal Medicine 05/09/24 documented as of this encounter
--- OUTSIDE RECORDS SUMMARY | 2024-05-24 14:22 | XMS_ITS | Encounter Summary ---
Author Organization [facility] Address [address] [place] [address] Care Team Providers Care Hand Touch Up Painter Name Role Phone Iggy Sevilla MD Primary Care Provider [phone] Reason for Visit * Reason Onset Date Comments Procedure 04/01/2011 Encounter Details Date Type Department Care Team ([facility] st Contact Info) Description 04/01/2011 Pre-Procedure Orders Encounter [facility] Psychiatric Consultation Program - [address] [address] Juwan Sawant MD [address] [place] [address] [address] [place] [id number] Social History Tobacco Use Types Packs/Day Years [...] filedocumented in this encounter Care Teams Hand Touch Up Painter Relationship Specialty Start Date End Date Iggy Sevilla MD [address] [place] [id number] PCP - General 03/24/11 12/19/18 documented as of this encounter
--- OUTSIDE RECORDS SUMMARY | 2024-05-24 14:23 | XMS_ITS | Encounter Summary ---
[place] [address] Care Team Providers Care Mail Carrier Technician Name Role Phone Dewayne Carrington MD Primary Care Provider [phone] Reason for Referral * Consultation (Routine) - Closed Specialty Diagnoses / Procedures Referred By Contac t Referred To Contact Gastroenterology Diagnoses Steatohepatitis Dewayne Carrington MD [address] [place] [address] [place] [address] [facility] [address] [place] [address] Referral ID Status Reason Start Date Expiration Date V isits Requested Visits Authorized [id number] Closed Consult, Test & Treat PCP Updated and/or Approved 02/22/2022 02/22/2023 6 6 Encounter Details Date Type Department Care Team (Late st Contact Info) Description 02/22/2022 Transcribe Orders eDH Incoming Referrals [phone] Dewayne Carrington MD [address] [place] [address] [place] [address] Steatohepatitis Social History Tobacco Use [...] Hospital Encounter Non-[place] [address] Arrived 08/09/2024 10:00 AM EDT Hospital Encounter Non-[place] [address] Arrived Scheduled Referrals Name Type Priority Associated Diagnoses Order Schedule Referral to Gastroenterology Outpatient Referral Routine Steatohepatitis Ordered: 02/22/2022 documented as of this encounter Visit Diagnoses Diagnosis Steatohepatitis Other chronic nonalcoholic liver disease documented in this encounter Care Teams Mail Carrier Technician Relationship Specialty Start Date End Date Dewayne Carrington MD PCP - General 09/02/16 05/08/24 documented as of this encounter
--- OUTSIDE RECORDS SUMMARY | 2024-05-24 14:23 | XMS_ITS | Encounter Summary ---
Author Organization [facility] [place] [address] Care Team Providers Care Antisqueak Applier Name Role Phone Dewayne Carrington MD Primary Care Provider [phone] Encounter Details Date Type Department Care Team [...] AM EST Hospital Encounter Non-[place]vasive [place] [address] Arrived 08/09/2024 10:00 AM EDT Hospital Encounter Non-[place]vasive [place] [address] Arrived documented as of this encounter Visit Diagnoses Not on filedocumented in this encounter Care Teams Antisqueak Applier Relationship Specialty Start Date End Date Dewayne Carrington MD PCP - General 09/02/16 05/08/24 documented as of this encounter
--- OUTSIDE RECORDS SUMMARY | 2024-05-24 14:23 | XMS_ITS | Encounter Summary ---
[place] [address] Care Team Providers Care Marine Engineer Cpvec Name Role Phone Dewayne Carrington MD Primary Care Provider Encounter Details Date Type Department Care Team (Latest Contact Info) Description 03/17/2024 10:00 AM EST - 03/17/2024 11:59 PM EST Hospital Encounter Non-Invasive [place] [address] Discharge Disposition: Home Social History Tobacco Use [...] Sig Dispensed Refills Start Date End Date lisinopriL (Zestril) 2.5 mg Tablet Take 1 [...] by mouth 2 times daily (with meals). traMADol (ULTRAM) 50 mg Tablet Take 50 mg by mouth daily as needed for Pain. nitroGLYcerin (NITROSTAT) 0.[address] 0.4 mg under the tongue every 5 minutes as needed. Reported on 09/30/2016 AMIOdarone (Paceron) 200 mg Tablet Take 100 mg by mouth daily. 11/29/2020 05/10/2024 lamoTRIgine (LaMICtal) 100 mg Tablet Take 50 mg by mouth daily. TAKES IN ADDITION TO 200 MG TAB 5 BD ULTRA-FINE MINI PEN NEEDLE 31 gauge x 3/16 Needle INJECT ONCE DAILY DIRECTED 0 10/07/2018 05/14/2024 Trintellix 5 mg Tablet Take 5 mg by mouth daily. 03/05/2022 05/10/2024 cyanocobalamin, Vitamin B-12, (Vitamin B-12) 1,000 mcg Tablet Take 1,000 mcg by mouth daily. 05/10/2024 ferrous sulfate 324 mg (65 mg iron) Tablet, Delayed Release (E.C.) Take 324 mg by mouth daily. 05/10/2024 KlonoPIN 1 mg Tablet Take by mouth 3 times daily as needed. 10/05/2019 05/10/2024 tacrolimus (PROTOPIC) 0.1 % Ointment Apply topically to buttocks twice daily for 6 weeks, repeat as needed 100 g 3 11/15/2019 05/10/2024 aspirin 81 mg Tablet, Delayed Release (E.C.) Take 81 mg by mouth daily. 05/10/2024 MAGNESIUM CARBONATE ORAL Take 400 mg by mouth 3 times daily. 05/10/2024 liraglutide (VICTOZA) 0.6 mg/0.1 mL (18 mg/3 mL) Pen Injector Inject 1.2 mg subcutaneously daily. 05/10/2024 documented as of this encounter Plan of Treatment Upcoming Encounters Date Type Department Care Team (Late st Contact Info) Description 06/15/2024 10:00 AM EST Hospital Encounter Non-Invasive [place] [address] Arrived 08/09/2024 10:00 AM EDT Hospital Encounter Non-Invasive [place] [address] Arrived documented as of this encounter Visit Diagnoses Not on filedocumented in this encounter Care Teams Marine Engineer Cpvec Relationship Specialty Start Date End Date Dewayne Carrington MD PCP - General 09/02/16 05/08/24 documented as of this encounter
--- OUTSIDE RECORDS SUMMARY | 2024-05-24 14:23 | XMS_ITS | Encounter Summary ---
Author [place] [address] Care Team Providers Care Donor Services Team Leader Name Role Phone Dewayne Carrington MD Primary Care Provider [phone] Encounter Details Date Type Department Care Team (Latest Contact Info) Description 09/19/2023 10:00 AM EDT - 09/19/2023 11:59 PM EDT Hospital Encounter [place] [address] Discharge Disposition: Home Social History Tobacco Use [...] AM EST Hospital Encounter [place] [address] Arrived 08/09/2024 10:00 AM EDT Hospital Encounter [place] [address] Arrived documented as of this encounter Procedures [...] on filedocumented in this encounter Care Teams Donor Services Team Leader Relationship Specialty Start Date End Date Dewayne Carrington MD PCP - General 09/02/16 05/08/24 documented as of this encounter
--- OUTSIDE RECORDS SUMMARY | 2024-05-24 14:23 | XMS_ITS | Encounter Summary ---
Author Organization [facility] Address [facility] [place] [address] Care Team Providers Care Site Medical Director Name Role Phone Dewayne Carrington MD Primary Care Provider [phone] Encounter Details Date Type Department Care Team (Latest Contact Info) Description 12/26/2021 - 12/26/2021 11:59 PM EDT Hospital Encounter Non-Invasive [place] [address] Ta Negron MD [facility] [place] [address] V-tach Discharge Disposition: Home Social History Tobacco [...] Sig Dispensed Refills Start Date End Date atorvastatin (Lipitor) 20 mg Tablet Take 1 [...] INJECT ONCE DAILY DIRECTED 0 10/07/2018 05/14/2024 cyanocobalamin, Vitamin B-12, (Vitamin B-12) 1,000 mcg Tablet Take 1,000 mcg by mouth daily. 05/10/2024 ferrous sulfate 324 mg (65 mg iron) Tablet, Delayed Release (E.C.) Take 324 mg by mouth daily. 05/10/2024 KlonoPIN 1 mg Tablet Take by mouth 3 times daily as needed. 10/05/2019 05/10/2024 vilazodone (Viibryd) 40 mg Tablet Take 40 mg by mouth daily. 03/18/2022 tacrolimus (PROTOPIC) 0.1 % Ointment Apply topically to buttocks twice daily for 6 weeks, repeat as needed 100 g 3 11/15/2019 05/10/2024 aspirin 81 mg Tablet, Delayed Release (E.C.) Take 81 mg by mouth daily. 05/10/2024 glipiZIDE (GLUCOTROL) 5 mg Tablet Take 5 mg by mouth daily. 03/18/2022 MAGNESIUM CARBONATE ORAL Take 400 mg by mouth 3 times daily. 05/10/2024 liraglutide (VICTOZA) 0.6 mg/0.1 mL (18 mg/3 mL) Pen Injector Inject 1.2 mg subcutaneously daily. 05/10/2024 lisinopril (PRINIVIL;ZESTRIL) 20 mg Tablet Take 1 tablet by mouth daily. 30 tablet 12 01/09/2014 03/18/2022 documented as of this encounter Plan of Treatment Upcoming Encounters Date Type Department Care Team (Late st Contact Info) Description 06/15/2024 10:00 AM EST Hospital Encounter Non-Invasive [place] [address] Arrived 08/09/2024 10:00 AM EDT Hospital Encounter Non-Invasive [place] [address] Arrived documented as of this encounter Procedures Procedure Name Priority Date/Time Associated Diagnosis Comments ICD INTERROGATION 3 MONTH Routine 12/27/2021 12:40 PM EDT V-tach documented in this encounter Results * ICD INTERROGATION 3 MONTH (12/27/2021 12:40 PM EDT) Anatomical Region Laterality Modality Other Narrative 12/27/2021 1:23 PM EDT Cardiac Device Remote Monitoring Report Summary Eneedo Latitude Device: ICD Model: INCEPTA Battery: 'beginning [...] tachycardia documented in this encounter Care Teams Site Medical Director Relationship Specialty Start Date End Date Dewayne Carrington MD PCP - General 09/02/16 05/08/24 documented as of this encounter
--- OUTSIDE RECORDS SUMMARY | 2024-05-24 14:23 | XMS_ITS | Encounter Summary ---
[place] [address] Care Team Providers Care Shipping Clerk Name Role Phone Dewayne Carrington MD Primary Care Provider [phone] Encounter Details Date Type Department Care Team (Latest Contact Info) Description 12/18/2023 10:00 AM EDT - 12/18/2023 11:59 PM EDT Hospital Encounter Non-[place]vasive [place] [address] Discharge Disposition: Home Social History Tobacco Use [...] AM EST Hospital Encounter Non-[place] [address] Arrived 08/09/2024 10:00 AM EDT Hospital Encounter Non-[place] [address] Arrived documented as of this encounter Visit Diagnoses Not on filedocumented in this encounter Care Teams Shipping Clerk Relationship Specialty Start Date End Date Dewayne Carrington MD PCP - General 09/02/16 05/08/24 documented as of this encounter
--- OUTSIDE RECORDS SUMMARY | 2024-05-24 14:23 | XMS_ITS | Encounter Summary ---
Author Organization [facility] Address [facility] [place] [address] Care Team Providers Care Weekend Anchor Name Role Phone Ralph Bright Primary Care Provider + Encounter Details Date Type Department Care Team (Late st Contact Info) Description 05/09/2024 Telephone Cardiology at [address] [id number] Mynor Espinoza MD [facility] [place] [address] Social History Tobacco Use Types Packs/Day Years Used Date Smoking Tobacco: Every Day e-Cigarettes Smokeless Tobacco: Never Comments:using e cigarettes Alcohol Use Standard Drinks/Week Comments No 0 (1 standard drink = 0.6 oz pur e alcohol) [facility] Utilities Answer Date Recorded In the past 12 months has Team Apart, gas, oil, or water [employer] threatened to shut off services in your [...] were you homeless or living in a senior living (including now)? No 05/10/2024 [facility] IPV Inpatient [...] encounter Miscellaneous Notes * Telephone Encounter - Mynor Espinoza MD - 05/09/2024 6:33 PM EST Images from the original note were not included. [facility] [address] 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, on chronic amiodarone and metoprolol CAD: Heart catheterization in [facility] in 2007 with placement of a stent in an unspecified vessel Repeat heart catheterization in 2008 with placement of stents to both the LAD and circumflex Follow up heart catheterization in 2008 showing stable results in both vessels Recurrent chest discomfort in a somewhat atypical pattern beginning fall Nuclear stress test at [facility] in [place], [place] April during which he developed left shoulder and arm discomfort during submaximal exercise on the treadmill and after which he was converted to a pharmacologic test; nuclear imaging showed ejection fraction of 45% with a partially reversible inferior defect Cath [facility] 05/13/2013: normal left main, mild diffuse disease throughout the LAD with an 80% mid stenosis representing a restenosis lesion, mild diffuse disease in the proximal obtuse marginal branch, and mild diffuse disease throughout the right coronary artery; status post 3.0 X 12 mm JON to 80% mid-LAD lesion (in- stent restenosis) Heart catheterization [facility] January 06, 2014 showing normal left main, hazy 50% mid LAD stenosis, mild diffuse disease throughout the circumflex, and moderate diffuse disease in the proximal RCA with a totally occluded distal RCA with brisk flow via bridging collaterals; fractional flow reserve onthe LAD 0.85 Nuclear stress test [facility] August 2016 reportedly showing a small area of inferior ischemia (final report pending) Abnormal LFTs, thought to be related to fatty liver disease but cannot completely exclude amiodarone toxicity (LFTs seemed to worsen on amio) 1416 VT defibrillation Abd pain this week No cp 1:213 pm 60 to 151 bpm Brief HPI: This is a 73-year-old male with the above-noted past medical history who presents with presumed ventricular tachycardia resulting in a device administered defibrillation shock at 1416. Apparently, hehas been having some generalized abdominal/epigastric discomfort over the past couple of days and ov erall feeling not well. No specific symptoms of chest pain or shortness of breath. No peripheral edema. Earlier today, he noticed he reverted back to atrial fibrillation for which she has been symptomatic in the past. He has been cardioverted remotely in 2020. He is on Xarelto. He noticed that his heart rate sped up this afternoon and his defibrillator shocked him. This prompted him to report to the emergency room. On arrival, hemodynamically stable without any distress. Initial ECG is probably atrial fibrillation with controlled heart rate. Apparently now he may be atrially paced per ED provider. There is no overt ischemia on his electrocardiogram. ED provider calling with regards to transfer. Amio 100mg Metoprolol 50 qd Xarelto Lisinopril 2.5 mg Furosemide 20mg qd Statin Pertinent Diagnostic Findings: Troponin trend: 8, 8 ProBNP 130 BMP notable for Cr 1.2, K 4.4 CBC unremarkable Mg 1.5 AST 43 ALT 65 ECG (05/09/24): Atrial fibrillation, Nonspecific intraventricular conduction block, LAFB, PVC ECG (2020): Atrial paced rhythm, LAFB Device interrogation 08/2023 Assessment/Recommendations: This is a 73-year-old male with the above complex past cardiac history which includes ischemic cardiomyopathy and multiple episodes of ventricular tachycardia in the past. Apparently, this is the only time his defibrillator has actually shocked him because in the past the ventricular tachycardia has been below the detection limit. I was on the phone discussing the device interrogation with the EDprovider and overall difficult to ascertain exactly what she is reading. She was able to send me a few clips via text but it looks like she only sent me the ATP attempts. He was apparently shocked inthe VT 1 zone which is set at a lower rate limit of 140 bpm. Differential includes ventricular tachycardia versus atrial fibrillation with aberrancy. In the clip that she sent, there was not a significant amount of atrial sensed complexes and therefore I do suspect this was probably VT. They do not have echo capability or cardiology consultation capability. In addition, they have no EP availability. His ECG and lab workup are reassuring. I do not feel that this is acute ischemia butrather scar mediated monomorphic VT. I do feel that he would benefit from expedited TTE, possible nuclear stress test, and EP consultation given his history. It seems as if people were worried about amiodarone induced hepatotoxicity in the past but his LFTs are improved from prior years ago. I anticipate we may be able to uptitrate his beta-blockade and keep him on amiodarone while we complete the workup. I recommended they double his metoprolol dose and give him a dose now. He will be acceptedfor later today. The above recommendations were based on my discussion with the outside hospital provider. I have not personally interviewed or examined this patient. I advised the provider to call the transfer center back with any changes in the patient condition. documented in this encounter Plan of Treatment Upcoming Encounters Date Type Department Care Team (Late st Contact Info) Description 06/15/2024 10:00 AM EST Hospital Encounter [place] [address] Arrived 08/09/2024 10:00 AM EDT Hospital Encounter [place] [address] Arrived documented as of this encounter Visit Diagnoses Not on filedocumented in this encounter Care Teams Weekend Anchor Relationship Specialty Start Date End Date Ralph [place] [address] [place] [address] PCP - General Internal Medicine 05/09/24 documented as of this encounter
--- OUTSIDE RECORDS SUMMARY | 2024-05-24 14:23 | XMS_ITS | Encounter Summary ---
[place] [address] Care Team Providers Care Tint Layer Name Role Phone Dewayne Carrington MD Primary Care Provider [phone] Encounter Details Date Type Department Care Team (Latest Contact Info) Description 06/26/2022 10:00 AM EST - 06/26/2022 11:59 PM EST Hospital Encounter Non-Invasive [place] [address] Discharge Disposition: Home Social History Tobacco Use [...] EST Hospital Encounter Non-Invasive [place] [address] Arrived 08/09/2024 10:00 AM EDT Hospital Encounter Non-Invasive [place] [address] Arrived documented as of this encounter Procedures [...] on filedocumented in this encounter Care Teams Tint Layer Relationship Specialty Start Date End Date Dewayne Carrington MD PCP - General 09/02/16 05/08/24 documented as of this encounter
--- OUTSIDE RECORDS SUMMARY | 2024-05-24 14:23 | XMS_ITS | Encounter Summary ---
[place] [address] Care Team Providers Care Insurance Counselor Name Role Phone Dewayne Carrington MD Primary Care Provider [phone] Encounter Details Date Type Department Care Team (Latest Contact Info) Description 06/21/2023 10:00 AM EST - 06/21/2023 11:59 PM EST Hospital Encounter Non-Invasive [place] [address] Discharge Disposition: Home Social History Tobacco Use [...] AM EST Hospital Encounter Non-Invasive [place] [address] Arrived 08/09/2024 10:00 AM EDT Hospital Encounter Non-Invasive [place] [address] Arrived documented as of this encounter Procedures [...] on filedocumented in this encounter Care Teams Insurance Counselor Relationship Specialty Start Date End Date Dewayne Carrington MD PCP - General 09/02/16 05/08/24 documented as of this encounter
--- OUTSIDE RECORDS SUMMARY | 2024-05-24 14:23 | XMS_ITS | Encounter Summary ---
[place] [address] Care Team Providers Care Molder Foam Rubber Name Role Phone Dewayne Carrington MD Primary Care Provider [phone] Encounter Details Date Type Department Care Team (Latest Contact Info) Description 09/24/2022 10:00 AM EDT - 09/24/2022 11:59 PM EDT Hospital Encounter [place] [address] Discharge Disposition: Home Social History Tobacco Use [...] AM EST Hospital Encounter Non-[place] [address] Arrived 08/09/2024 10:00 AM EDT Hospital Encounter [place] [address] Arrived documented as of this encounter Procedures [...] filedocumented in this encounter Care Teams Molder Foam Rubber Relationship Specialty Start Date End Date Dewayne Carrington MD PCP - General 09/02/16 05/08/24 documented as of this encounter
--- OUTSIDE RECORDS SUMMARY | 2024-05-24 14:23 | XMS_ITS | Encounter Summary ---
Author Organization [facility] [place] [address] Care Team Providers Care Tin Flopper Name Role Phone Ralph Bright Primary Care Provider + Reason for Visit * Auth/Cert (Routine) Specialty Diagnoses / Procedures Referred By Contac t Referred To Contact Diagnoses Ventricular tachycardia Defibrillator discharge Procedures CHICHI Jero Aguirre MD [facility] [address] [facility] Referral ID Status Reason Start Date Expiration Date Visits Re quested Visits Authorized [id number] 1 1 Encounter Details Date Type Department Care Team (Late st Contact Info) Description 05/11/2024 11:45 AM EST - 05/11/2024 12:15 PM EST [place] [address] Frank Hand MD [facility] [place] [address] CARDIOVERSION-ELECTIVE (WRVU 2) Social History Tobacco Use Types Packs/Day Years Used Date Smoking Tobacco: Every Day e-Cigarettes Smokeless Tobacco: Never Comments:using e cigarettes Alcohol Use Standard Drinks/Week Comments No 0 (1 standard drink = 0.6 oz pur e alcohol) [facility] Utilities Answer Date Recorded In the past 12 months has [employer] electric, gas, oil, or water company threatened to shut off services in your [...] any time in the past 12 m [facility], were you homeless or living in a mcfp (including now)? No 05/10/2024 IPV Inpatient Questions [...] Reading Time Taken Comments Blood Pressure 102/62 05/11/2024 11:03 AM EST Pulse 56 05/11/2024 11:03 AM EST Temperature 36.6 ??C (97.8 ??F) 05/11/2024 1 1:03 AM EST Respiratory Rate 18 05/11/2024 11:0 3 AM EST Oxygen Saturation 97% 05/11/2024 11: 03 AM EST Inhaled Oxygen Concentration - - Weight 82.5 kg (181 lb 12.8 oz) 05/11/2024 3:38 AM EST Height 185.4 cm (6' 1) 05/09/2024 10:4 6 PM EST Body Mass Index 24.12 05/09/2024 10:46 PM EST documented in this encounter Discharge Summaries * Gordon Lynn MD - 05/14/2024 4:34 PM EST Images from the original note were not included. Discharge Summary Patient Name: Shahnaz Santiago Patient Age: 73 y.o. Language: Tajik Race: White Ethnicity: Not nor Admit date: [...] please contact your inpatient physician through the [facility] Display Card Writer . Issues afterhours and on weekends will [...] Shahnaz Santiago is a 73-year-old gentleman from [facility] who has an ischemiccardiomyopathy (LVEF 49% with global LV systolic dysfunction per echo 11/06/2016), followed in the EP clinic for persistent atrial fibrillation as well as ventricular tachycardia. Previous DCCV for persistent A- fib October 2020 chronically anticoagulated with Xarelto, status post dual-chamber [employer] ICD 01/10/2014 complicated by atrial lead dislodgment requiring lead revision 04/17/2014, with both successful and unsuccessful ATP in the past. ICD was reprogrammed in November 2020 after he isfound to be in and out of VT at a rate lower than his programmed detection rate. Patient was subsequently started on amiodarone. Coronary artery disease diagnosed 2007 by left heart catheterization [facility] with PCI to unspecified vessel subsequent cardiac catheterization 2008 with stents to LAD and circumflex and subsequent cardiac cath [facility] 05/13/2013 after an abnormal pharmacologic stress test at [facility] showed LVEF 45% with partially reversible inferior defect. Leftheart cath 05/13/2013 showed normal left main mild diffuse disease throughout LAD with 80% mid stenosis representing restenosis lesion, mild diffuse disease proximal obtuse marginal branch and mild diffuse disease throughout the right coronary artery, status post 3 drug-eluting stents to 80% mid LAD. Subsequent left heart cath done at [facility] January 06, 2014 again showing normal left [...] hospital since his AICD was last reset fib2023 he had a total of 17 ventricular [...] alkaline phosphatase that was normal at 83. [facility] requested transfer as they did not have any echocardiography availability or cardiology consultation availability. Furthermore they had no in-house EP service. Dr. Espinoza took the phone call from [facility] cardiology and recommended transfer for evaluation by our EP service. 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 In the past there has been some concern about hepatotoxicity from his amiodarone has been followed by [facility] GI service there [...] a hospital follow-up - MAXIMO Mcbride @ [phone] Facsimile Operator: Please call Dr. Russ's office to confirm your upcoming appointment. Your Inpatient Medical Team at [facility] Name(s) of your inpatient provider(s): Gordon Lynn MD For questions regarding issues relating to your hospitalization on the Hospital Medicine Service, please contact your inpatient physician through the [facility] Display Card Writer [phone]. Issues after hours and on weekends will be handled by the Hospitalist staff on-call. Your Primary Care Provider MAXIMO Mcbride [phone] General Instructions None Discharge References/Attachments Ventricular Tachycardia: General Info (Tajik) documented in this encounter Discharge Instructions * [...] a hospital follow-up - MAXIMO Mcbride @ [phone] Facsimile Operator: Please call Dr. Russ's office to confirm your upcoming appointment. Your Inpatient Medical Team at [facility] Name(s) of your inpatient provider(s): Gordon Lynn MD For questions regarding issues relating to your hospitalization on the Hospital Medicine Service, please contact your inpatient physician through the [facility] Display Card Writer [phone]. Issues after hours and on weekends will be handled by the Hospitalist staff on-call. Your Primary Care Provider MAXIMO Mcbride [phone] * Attachments The following attachments cannot be sent through Care Everywhere. * Ventricular Tachycardia: General Info (Tajik) documented in this encounter Medications at Time [...] Labs 05/10/24 0021 INR 1.4 Recent Labs 05/12/2431805/11/24 0836 05/10/24 0021 NA 138 138 140 K 4.5 4.0 4.6 CL 101 102 105 CO2 BUN 23* 22* 18 CREATININE 1.15 1.05 0.92 Recent Labs 05/10/24 0021 AST 40* ALT 42 ALKPHOS 61 BILITOT 0.3 Recent Labs 05/12/2431805/11/24 0836 05/10/24 0021 CALCIUM 9.3 9.3 9.2 MAGNESIUM 0.80 0.77 0.83 PHOS -- -- 2.9 Recent Labs 05/10/24 0356 05/10/24 0117 05/10/24 0021 TROPONINTHS 15 13 13 Pertinent Radiographic/Diagnostic Results: Device Data: Atrial electrode(New): Guidant Dextrus Model# 4126-53 cm Serial# [id number], implanted 04/17/2014 Bipolar, steroid-tipped, active-fixation IS-1 lead Access: Axillary vein Location Right atrial appendage Old Ventricular electrode: [employer] [place] Model# 0292 Serial# [id number] Bipolar, steroid-tipped, active-fixation DF-4 lead Access: Axillary vein Location: Right ventricular apex Implanted: 01/10/2014 Pulse generator: Innovaspire Incepta Model# E162 Serial# [id number] DDDR ICD Location: Subcutaneous Pacing Mode: DDDR 60/130/130 Tachy settings: VF 220 bpm; ATP, 31j, 41j x 7 VT 180 bpm; Scan, 31j, 41j x 5 VT-1 140 bpm; Scan, RampScan, 0.9j, 11j, 41j x 3 Underlying atrial paced rhythm AP 60%; PASSENGER BARGE MASTER 9% Recurrent VT while inpatient - amiodarone [...] 4.5 4.0 CL 98 101 102 CO2 20* 25 22 BUN 21* 23* 22* CREATININE [...] No resolved problems to display. Interval History: -MATTY -Patient underwent successful DCCV today with conversion [...] successful cardioversion to NSR 05/11 -NPO at [place] for NM stress test tomorrow #Ischemic Cardiomyopathy [...] Shahnaz Santiago is a 73-year-old gentleman from [facility] who has an ischemic cardiomyopathy (LVEF 49% with global LV systolic dysfunction per echo 11/06/2016), [facility] for persistent atrial fibrillation as well as ventricular tachycardia. Previous DCCV for persistent A-fib October 2020 chronically anticoagulated with Xarelto, status post dual-chamber [employer] ICD 01/10/2014 complicated by atrial lead dislodgment requiring lead revision 04/17/2014, with both successful and unsuccessful ATP in the past. ICD was reprogrammed in November 2020 after he is found to be in and out of VT at a rate lower than his programmed detection rate. Patient was subsequently started on amiodarone. Coronary artery disease diagnosed 2007 by left heart catheterization [facility] with PCI to unspecified vessel subsequent cardiac catheterization 2008 with stents to LADand circumflex and subsequent cardiac cath [facility] 05/13/2013 after an abnormal pharmacologic stress test at [facility] showed LVEF 45% with partially reversible inferior defect. Left heart cath 05/13/2013 showed normal left main mild diffuse disease throughout LAD with 80% mid stenosis representing restenosis lesion, mild diffuse disease proximal obtuse marginal branch and mild diffuse disease throughout the right coronary artery, status post 3 drug-eluting stents to 80% mid LAD.Subsequent left heart cath done at [facility] January 06, 2014 again showing normal left [...] hospital since his AICD was last reset fib2023 he had a total of 17 ventricular [...] Dr. Espinoza took the phone call from [facility] cardiology and recommended transfer for evaluation by our EP service. 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 In the past there has been some concern about hepatotoxicity from his amiodarone has been followed by [facility] GI service there [...] 2.25) performed by Fantasma Matos MD at [facility] MAIN OR PRO UPPER GI ENDOSCOPY, BIOPSY 12/17/2011 EGD WITH BIOPSY performed by KYRA VYAS at [facility] ENDOSCOPY Significant Family History: History reviewed. No [...] Intimate Partner Violence: Not At Risk (05/09/2024) [facility] Inpatient Questions Prevent Contact with Others: no [...] as ordered. See flowsheets for I&O. Call colmean within reach. Patient briefly on precautions overnight [...] Olivarez RN - 05/12/2024 2:45 PM EST [facility] RESPONSE TEAM NOTE Name: Shahnaz Santiago Age: 73 y.o. Sex; Male Date of : 1950 Responding Members: Trevon Olivarez RN, Magda Courtney RN Date/Time of Admission: 05/09/2024 10:31 PM Unit/Room: [place] [address] Service: Cardiology Attending: Shane Squeegee Tender present? Yes Attending Contacted? Yes Time Activated: [...] planned AI/Cardioversion. Subsequent high blood sugars contacted MD, adjusted insulin orders, administered per JUN. Urine [...] FORWARD: -VS Q4 -plan for cardioversion tomorrow, [employer] to evaluate ICD during stay -NPO at [...] Team, bedside nurse, medical record, and Patient CM/CASH GRAIN GROWER met with patient face to face. Introduced self/reviewed role; services accepted. Admitted From: Transfer from another hospital Location: [facility] Reason for Hospitalization: Defibrilator fired Past medical History: History reviewed. No pertinent past medical history. Hospitalizations Within the Past 30 Days: no previous admission in last 30 days Current Decision-Making Capacity: Self If AD's have not been completed the following surrogate would be surrogate decision maker per [place] surrogate decision making law. (Only good for 180 days) Any patient receiving care in [place] must abide by [place] law. The hierarchy for surrogate decision making [...] (i) The agent with financial power of aircraft load controller or a conservator appointed in accordance with [...] were you homeless or living in a mcfp (including now)?: No In the past 12 months has the [employer], gas, oil, or water [employer] threatened to shut off services in your [...] straight Home Address confirmed as: [address] [place] [id number] Social & Family Supports: All names listed below confirmed with patient as current and correct Extended Emergency Contact Information Primary Emergency Contact: Nkechi Weber [facility] Mobile Relation: Child Secondary Emergency Contact: Kassandra [...] points: Addiction likely Health/Prescription Coverage: Primary Insurance: [employer] MANAGED MEDICARE Payor: [employer] MEDICARE / Plan: [employer] PPO MANAGED MEDICARE / Product Type: *No Product type* / Secondary Insurance: N/A ; Prescription Coverage: Yes Are you financially able to cover the cost / copay of your medications?: Yes Preferred Pharmacy: [facility], [place] [address] [address] [place] Status: Patient is a : No Primary Care Provider confirmed: Kit Bright Patient/Caregiver Goals of Treatment: return home Potential Needs for Transition of Care: none Agency Referrals: Not Applicable Transportation: no concerns Transportation Anticipated: family or friend will provide Medications 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 His marine transport professionals is Dr Andersen. He has a history of a dual-chamber [employer] ICD, that was placed for primary prevention [id number]. He has had monomorphic VT in the [...] ASCVD (arteriosclerotic cardiovascular disease) Heart catheterization in [facility] in 2007 with placement of a stent in an unspecified vessel Repeat heart catheterization in 2008 with placement of stents to both the LAD and circumflex Followup heart catheterization in 2008 showing stable results in both vessels Recurrent chest discomfort in a somewhat atypical pattern beginning fall Nuclear stress test at [facility] in [place], [place] April during which he developed left shoulder and arm discomfort during submaximal exercise on the treadmill and after which he was converted to a pharmacologic test; nuclear imaging showed ejection fraction of 45% with a partially reversible inferior defect Cath [facility] 05/13/2013: normal left main, mild diffuse disease throughout the LAD with an 80% mid stenosis representing a restenosis lesion, mild diffuse disease in the proximal obtuse marginal branch, and mild diffuse disease throughout the right coronary artery; status post 3.0 X 12 mm JON to 80% mid-LAD lesion (in- stent restenosis) Heart catheterization [facility] January 06, 2014 showing normal left main, hazy 50% mid LAD stenosis, mild diffuse disease throughout the circumflex, and moderate diffuse disease in the proximal RCA with a totally occluded distal RCA with brisk flow via bridging collaterals; fractional flow reserve onthe LAD 0.85 Nuclear stress test [facility] August 2016 reportedly showing a small area [...] about 80 (documented on ICD interrogation 07/18/14) [id number] score = 3 Patient initially reluctant to be anticoagulated as recommended Atrial pacemaker lead displacement New finding at office follow up 04/10/2014 Plan lead reposition/replacement ICD (implantable cardioverter-defibrillator), dual, in situ New Atrial electrode: Guidant Dextrus Model# 4126-53 cm Serial# [id number] Bipolar, steroid-tipped, active-fixation IS-1 lead Access: Axillary vein Location Right atrial appendage P wave, PSA: 3 mV P wave, ICD: 4.1 mV Pacing threshold, PSA: 0.7 V at 0.5 ms Pacing threshold, ICD: 0.7 V at 0.5 ms Impedance, PSA: 560 ohms Impedance, ICD: 557 ohms Pace the diaphragm at 10 V: No Old Ventricular electrode: [employer] [place] Model# 0292 Serial# [id number] Bipolar, steroid-tipped, active-fixation DF-4 lead Access: Axillary vein Location: Right ventricular apex Implanted: 01/10/2014 R wave, PSA: NA mV R wave, ICD: 8.9 mV Pacing threshold, PSA: NA V at 0.5 ms Pacing threshold, ICD: 0.7 V at 0.5 ms Impedance, PSA: NA ohms Impedance, ICD: 510 ohms Old Atrial electrode: Guidant Dextrus Model# 4136 Serial# [id number] Bipolar, steroid-tipped, active-fixation IS-1 lead Access: Axillary vein Location Removed 04/17/2014 Implanted: 01/10/2014 Pulse generator: Innov[employer] Incepta Model# E162 Serial# [id number] DDDR ICD Location: Subcutaneous The wound was [...] Daily Jero Eric MD 20 mg at traMADoL (Ultram) tablet 50 mg 50 mg [...] Daily Jero Eric MD 300 mg at 05/10/24 0827 lamoTRIgine (LaMICtal) tablet 200 mg 200 mg Oral Daily Jero Eric MD 200 mg at 05/10/24 0827 bisacodyL (Dulcolax) suppository 10 mg 10 mg Rectal Daily PRN Jero Eric MD psyllium husk 1 packet 1 packet Oral BID Jero Eric MD lactulose (Chronulac) (0.67 gram/mL) oral liquid 20 g 20 g Oral BID PRN Jero Eric MD polyethylene glycoL (Miralax) packet 17 g 17 g Oral BID Jero Eric MD No current Epic-ordered outpatient medications on file. Family History: History [...] Range NT-proBNP 1,065 (H) <=124 pg/mL TSH [place] Result Value Ref Range Thyroid Stimulating Hormone [...] AM EST Hospital Encounter Non-Invasive Cardiology [place] [facility] [address] Arrived 08/09/2024 10:00 AM EDT Hospital Encounter [place] [address] Arrived documented as of this encounter Procedures [...] Persistent atrial fibrillation Cardioversion Elective Arrhythmia External (90424) 05/11/2024 11:34 AM EST Afib/flutter POC, GLUCOSE [...] (ABNORMAL) POC, GLUCOSE (05/14/2024 2:52 PM EST) Glucometer, POC 254(H) 65 - 199 mg/dL 05/14/2024 2:52 PM EST [facility] Comment:Supplemental ranges: <140 mg/dL before meals <180 mg/dL all other times of the day. Blood CAPILLARY BLOOD / Unknown 05/14/2024 2:52 PM EST 05/14/2024 2:52 PM EST Gordon Lynn MD POINT OF CARE TEST O RDERABLES [facility] [place] [address] * (ABNORMAL) POC, GLUCOSE (05/14/2024 11:51 AM EST) Glucometer, POC 279(H) 65 - 199 mg/dL 05/14/2024 11:52 AM EST [facility] Comment:Supplemental ranges: <140 mg/dL before meals <180 mg/dL all other times of the day. Blood CAPILLARY BLOOD / Unknown 05/14/2024 11:51 AM EST 05/14/2024 11:52 AM EST Gordon Lynn MD POINT OF CARE TEST O RDERALOREE Performing Organization Address City/[facility]/ZIP Co de Phone Number [facility] [place] [address] * POC, GLUCOSE (05/14/2024 7:56 AM EST) Glucometer, POC 174 65 - 199 mg/dL 05/14/2024 7:56 AM EST [facility] Comment:Supplemental ranges: <140 mg/dL before meals <180 mg/dL all other times of the day. Blood CAPILLARY BLOOD / Unknown 05/14/2024 7:56 AM EST 05/14/2024 7:57 AM EST Gordon Lynn MD POINT OF CARE TEST O [place] Performing Organization Address [facility] Co de Phone Number [facility] [place] [address] * POC, GLUCOSE (05/14/2024 4:34 AM EST) Glucometer, POC 143 65 - 199 mg/dL 05/14/2024 4:35 AM EST [facility] Comment:Supplemental ranges: <140 mg/dL before meals <180 mg/dL all other times of the day. Blood CAPILLARY BLOOD / Unknown 05/14/2024 4:34 AM EST 05/14/2024 4:35 AM EST Gordon Lynn MD POINT OF CARE TEST O [place] Performing Organization Address City/[facility] Co de Phone Number [facility] [place] [address] * Basic Metabolic Panel (05/14/2024 2:21 AM EST) Glucose 161 65 - 199 mg/dL 05/14/2024 3:09 AM EST [facility] Comment:Glucose Concentratio n >=200 mg/dL plus symptoms is consistent with Diabetes Mellitus. Blood Urea Nitrogen 19 10 - 20 mg/dL 05/14/2024 3:09 AM [facility] Creatinine 1.02 0.80 - 1.50 mg/dL 05/14/2024 3:09 AM [facility] Sodium 137 135 - 145 mMol/L 05/14/2024 3:09 AM [facility] Potassium 4.1 3.5 - 5.0 mMol/L 05/14/2024 3:09 AM [facility] Chloride 101 98 - 107 mMol/L 05/14/2024 3:09 AM [facility] Carbon Dioxide 24 22 - 31 mMol/L 05/14/2024 3:09 AM [facility] Anion Gap 12 5 - 15 mMol/L 05/14/2024 3:09 AM [facility] Calcium 9.1 8.5 - 10.5 mg/dL 05/14/2024 3:09 AM [facility] Est Glomerular Filtration Rate - Male 77 mL/min/1. 73 m?? 05/14/2024 3:09 AM [facility] Comment: This patient's estimated GFR was [...] AM EST Gordon Lynn MD CHEMISTRY ORDERABLES [facility] [place] [address] * (ABNORMAL) CBC (with Diff) (05/14/2024 2:21 AM EST) White Blood Cell 7.96 4.00 - 9.50 x10(3)/mc L 05/14/2024 2:50 AM [facility] Red Blood Cell 4.53(L) 4.58 - 5.54 x10(6)/mc L 05/14/2024 2:50 AM [facility] Hemoglobin 13.4(L) 13.7 - 16.5 g/dL 05/14/2024 2:50 AM [facility] Hematocrit 39.7(L) 40.5 - 48.5 % 05/14/2024 2:50 AM [facility] Mean Cell Volume 87.6 82.9 - 93.1 fL 05/14/2024 2:50 AM [facility] Mean Cell Hemoglobin 29.6 27.5 - 32.1 pg 05/14/2024 2:50 AM [facility] Mean Cell Hemoglobin Concentration 33.8 32.0 - 35.7 g/dL 05/14/2024 2:50 AM [facility] Platelet 212 145 - 357 x10(3)/mc L 05/14/2024 2:50 AM [facility] Mean Platelet Volume 9.2 7.6 - 12.9 fL 05/14/2024 2:50 AM [facility] RDW Standard Deviation 41.4 36.0 - 45.0 fL 05/14/2024 2:50 AM [facility] RDW coefficient of variation 13.0 11.4 - 13.8 % 05/14/2024 2:50 AM [facility] NRBC% auto 0.0 % 05/14/2024 2:50 AM [facility] NRBC Absolute <0.01 <0.01 x10(3)/mc L 05/14/2024 2:50 AM [facility] Neutrophil % 54.2 % 05/14/2024 2:50 AM [facility] Neutrophil Absolute (ANC) - Automated 4.31 1.70 - 6.10 x10(3)/mc L 05/14/2024 2:50 AM EST [facility] Lymph % 28.1 % 05/14/2024 2:50 AM [facility] Lymph Absolute 2.24 0.90 - 3.20 x10(3)/mc L 05/14/2024 2:50 AM EST [facility] Monocyte % 8.5 % 05/14/2024 2:50 AM [facility] Monocyte Absolute 0.68 0.30 - 0.90 x10(3)/mc L 05/14/2024 2:50 AM [facility] Eos % 7.7 % 05/14/2024 2:50 AM [facility] Eos Absolute 0.61(H) 0.00 - 0.40 x10(3)/mc L 05/14/2024 2:50 AM EST [facility] Basophil % 0.9 % 05/14/2024 2:50 AM [facility] Baso Absolute 0.07 0.00 - 0.10 x10(3)/mc L 05/14/2024 2:50 AM [facility] Immature Gran % 0.6 % 2:50 AM [facility] Immature Gran Absolute 0.05(H) 0.00 - 0.04 x10(3)/mc L 05/14/2024 2:50 AM [facility] Blood VENOUS BLOOD SPECIMEN / Unknown Venipuncture / Unknown 05/14/2024 2:21 AM EST 05/14/2024 2:35 AM EST Gordon Lynn MD HEMATOLOGY ORDERABLE S [facility] [place] [address] * Magnesium (05/14/2024 2:21 AM EST) Magnesium 0.78 0.69 - 1.07 mMol/L 05/14/2024 3:09 AM EST [facility] Blood VENOUS BLOOD SPECIMEN / Unknown Venipuncture / Unknown 05/14/2024 2:21 AM EST 05/14/2024 2:35 AM EST Gordon Lynn MD CHEMISTRY ORDERABLES Performing Organization Address City/[facility]/ZIP Co de Phone Number [facility] [place] [address] * POC, GLUCOSE (05/14/2024 12:05 AM EST) [facility] Glucometer, POC 192 65 - 199 mg/dL 05/14/2024 12:06 AM EST [facility] Comment:Supplemental ranges: <140 mg/dL before meals <180 mg/dL all other times of the day. Blood CAPILLARY BLOOD / Unknown 05/14/2024 12:05 AM EST 05/14/2024 12:06 AM EST Gordon Lnyn MD POINT OF CARE TEST O RDERABLES Performing Organization Address City/[facility]/ZIP Co de Phone Number [facility] [place] [address] * Respiratory Panel PCR (05/13/2024 11:17 PM EST) [facility] Respiratory Panel PCR Negative Negative 05/14/2024 1:15 AM [facility] Adenovirus Not Detected Not Detected 05/14/2024 1:15 AM [facility] Coronavirus HKU1 Not Detected Not Detected 05/14/2024 1:15 AM [facility] Coronavirus NL63 Not Detected Not Detected 05/14/2024 1:15 AM [facility] Coronavirus 229E Not Detected Not Detected 05/14/2024 1:15 AM [facility] Coronavirus OC43 Not Detected Not Detected 05/14/2024 1:15 AM [facility] SARS-CoV-2 Not Detected Not Detected 05/14/2024 1:15 AM [facility] Human Metapneumovirus Not Detected Not Detected 05/14/2024 1:15 AM [facility] Human Rhinovirus/Enterov irus Not Detected Not Detected 05/14/2024 1:15 AM [facility] Influenza A Not Detected Not Detected 05/14/2024 1:15 AM [facility] Influenza B Not Detected Not Detected 05/14/2024 1:15 AM [facility] Parainfluenza 1 Not Detected Not Detected 05/14/2024 1:15 AM [facility] Parainfluenza 2 Not Detected Not Detected 05/14/2024 1:15 AM [facility] Parainfluenza 3 Not Detected Not Detected 05/14/2024 1:15 AM [facility] Parainfluenza 4 Not Detected Not Detected 05/14/2024 1:15 AM [facility] Respiratory Syncytial Virus Not Detected Not Detected 05/14/2024 1:15 AM [facility] Chlamydophila pneumoniae Not Detected Not Detected 05/14/2024 1:15 AM [facility] Mycoplasma pneumoniae Not Detected Not Detected 05/14/2024 1:15 AM [facility] Swab SPECIMEN FROM NASOPHARYNGEAL STRUCTURE / Unknown Non Blood Collection / Unknown 05/13/2024 11:17 PM EST 05/13/2024 11:33 PM [facility] - 05/14/2024 1:15 AM EST Respiratory Panels are performed on the [employer] using multiplexed PCR nucleic acid detection. Negative results do not preclude respiratory infection and should not be used as the sole basis for diagnosis, treatment, or other management decisions. Rafael Zamora MD MICROBIOLOGY - [facility] ORDERABLES [facility] [place] [address] * POC, GLUCOSE (05/13/2024 10:46 PM EST) Glucometer, POC 199 65 - 199 mg/dL 05/13/2024 10:47 PM EST [facility] Comment:Supplemental ranges: <140 mg/dL before meals <180 mg/dL all other times of the day. Blood CAPILLARY BLOOD / Unknown 05/13/2024 10:46 PM EST 05/13/2024 10:47 PM EST Gordon Lynn MD POINT OF CARE TEST O SAMPSON Performing Organization Address [facility] Co de Phone Number [facility] [place] [address] * (ABNORMAL) POC, GLUCOSE (05/13/2024 8:21 PM EST) Glucometer, POC 275(H) 65 - 199 mg/dL 05/13/2024 8:22 PM EST [facility] Comment:Supplemental ranges: <140 mg/dL before meals <180 mg/dL all other times of the day. Blood CAPILLARY BLOOD / Unknown 05/13/2024 8:21 PM EST 05/13/2024 8:22 PM EST Gordon Lynn MD POINT OF CARE TEST O SAMPSON Performing Organization Address [facility] de Phone Number [facility] [place] [address] * (ABNORMAL) POC, GLUCOSE (05/13/2024 4:11 PM EST) Glucometer, POC 238(H) 65 - 199 mg/dL 05/13/2024 4:11 PM EST [facility] Comment:Supplemental ranges: <140 mg/dL before meals <180 mg/dL all other times of the day. Blood CAPILLARY BLOOD / Unknown 05/13/2024 4:11 PM EST 05/13/2024 4:11 PM EST Gordon Lynn MD POINT OF CARE TEST O SAMPSON Performing Organization Address City/[facility] Co de Phone Number [facility] [place] [address] * (ABNORMAL) POC, GLUCOSE (05/13/2024 1:17 PM EST) Glucometer, POC 386(H) 65 - 199 mg/dL 05/13/2024 1:18 PM EST [facility] Comment:Supplemental ranges: <140 mg/dL before meals <180 mg/dL all other times of the day. Blood CAPILLARY BLOOD / Unknown 05/13/2024 1:17 PM EST 05/13/2024 1:18 PM EST Gordon Lynn MD POINT OF CARE TEST O SAMPSON Performing Organization Address City/[facility]/ZIP Co de Phone Number [facility] [place] [address] * (ABNORMAL) POC, GLUCOSE (05/13/2024 12:03 PM EST) Glucometer, POC 355(H) 65 - 199 mg/dL 05/13/2024 12:04 PM EST [facility] Comment:Supplemental ranges: <140 mg/dL before meals <180 mg/dL all other times of the day. Blood CAPILLARY BLOOD / Unknown 05/13/2024 12:03 PM EST 05/13/2024 12:04 PM EST Gordon Lynn MD POINT OF CARE TEST Catie BRADEN [facility] [place] [address] * (ABNORMAL) POC, GLUCOSE (05/13/2024 11:43 AM EST) Glucometer, POC 501(HHH) 65 - 199 mg/dL 05/13/2024 11:45 AM EST [facility] Comment:Supplemental ranges: <140 mg/dL before meals <180 mg/dL all other times of the day. Blood CAPILLARY BLOOD / Unknown 05/13/2024 11:43 AM EST 05/13/2024 11:45 AM EST Gordon Lynn MD POINT OF CARE TEST O RDMARY Performing Organization Address City/[facility]/ZIP Co de Phone Number [facility] [place] [address] * POC, GLUCOSE (05/13/2024 7:15 AM EST) Glucometer, POC 171 65 - 199 mg/dL 05/13/2024 7:16 AM EST [facility] Comment:Supplemental ranges: <140 mg/dL before meals <180 mg/dL all other times of the day. Blood CAPILLARY BLOOD / Unknown 05/13/2024 7:15 AM EST 05/13/2024 7:16 AM EST Gordon Lynn MD POINT OF CARE TEST O SAMPSON Performing Organization Address [facility] Co de Phone Number [facility] [place] [address] * (ABNORMAL) Basic Metabolic Panel (05/13/2024 4:00 AM EST) Glucose 147 65 - 199 mg/dL 05/13/2024 4:55 AM [facility] Comment:Glucose Concentratio n >=200 mg/dL plus symptoms is consistent with Diabetes Mellitus. Blood Urea Nitrogen 19 10 - 20 mg/dL 05/13/2024 4:55 AM [facility] Creatinine 0.96 0.80 - 1.50 mg/dL 05/13/2024 4:55 AM [facility] Sodium 138 135 - 145 mMol/L 05/13/2024 4:55 AM [facility] Potassium 4.9 3.5 - 5.0 mMol/L 05/13/2024 4:55 AM [facility] Chloride 103 98 - 107 mMol/L 05/13/2024 4:55 AM [facility] Carbon Dioxide 21(L) 22 - 31 mMol/L 05/13/2024 4:55 AM [facility] Anion Gap 14 5 - 15 mMol/L 05/13/2024 4:55 AM EST [facility] Calcium 9.0 8.5 - 10.5 mg/dL 05/13/2024 4:55 AM EST [facility] Est Glomerular Filtration Rate - Male 83 mL/min/1. 73 m?? 05/13/2024 4:55 AM EST [facility] Comment: This patient's estimated GFR [...] AM EST Gordon Lynn MD CHEMISTRY ORDERABLES [facility] [place] [address] * (ABNORMAL) CBC (with Diff) (05/13/2024 4:00 AM EST) White Blood Cell 7.81 4.00 - 9.50 x10(3)/mc L 05/13/2024 4:37 AM EST [facility] Red Blood Cell 4.71 4.58 - 5.54 x10(6)/mc L 05/13/2024 4:37 AM EST [facility] Hemoglobin 13.9 13.7 - 16.5 g/dL 05/13/2024 4:37 AM EST [facility] Hematocrit 41.9 40.5 - 48.5 % 05/13/2024 4:37 AM EST [facility] Mean Cell Volume 89.0 82.9 - 93.1 fL 05/13/2024 4:37 AM [facility] Mean Cell Hemoglobin 29.5 27.5 - 32.1 pg 05/13/2024 4:37 AM [facility] Mean Cell Hemoglobin Concentration 33.2 32.0 - 35.7 g/dL 05/13/2024 4:37 AM [facility] Platelet 200 145 - 357 x10(3)/mc L 05/13/2024 4:37 AM [facility] Mean Platelet Volume 9.3 7.6 - 12.9 fL 05/13/2024 4:37 AM [facility] RDW Standard Deviation 41.5 36.0 - 45.0 fL 05/13/2024 4:37 AM [facility] RDW coefficient of variation 12.8 11.4 - 13.8 % 05/13/2024 4:37 AM [facility] NRBC% auto 0.0 % 05/13/2024 4:37 AM [facility] NRBC Absolute <0.01 <0.01 x10(3)/mc L 05/13/2024 4:37 AM [facility] Neutrophil % 50.1 % 05/13/2024 4:37 AM [facility] Neutrophil Absolute (ANC) - Automated 3.91 1.70 - 6.10 x10(3)/mc L 05/13/2024 4:37 AM [facility] Lymph % 32.7 % 05/13/2024 4:37 AM [facility] Lymph Absolute 2.55 0.90 - 3.20 x10(3)/mc L 05/13/2024 4:37 AM [facility] Monocyte % 9.3 % 05/13/2024 4:37 AM [facility] Monocyte Absolute 0.73 0.30 - 0.90 x10(3)/mc L 05/13/2024 4:37 AM [facility] Eos % 6.8 % 05/13/2024 4:37 AM [facility] Eos Absolute 0.53(H) 0.00 - 0.40 x10(3)/mc L 05/13/2024 4:37 AM [facility] Basophil % 0.6 % 05/13/2024 4:37 AM [facility] Baso Absolute 0.05 0.00 - 0.10 x10(3)/mc L 05/13/2024 4:37 AM [facility] Immature Gran % 0.5 % 4:37 AM [facility] Immature Gran Absolute 0.04 0.00 - 0.04 x10(3)/mc L 05/13/2024 4:37 AM [facility] Blood VENOUS BLOOD SPECIMEN / Unknown Venipuncture / Unknown 05/13/2024 4:00 AM EST 05/13/2024 4:26 AM EST Gordon Lynn MD HEMATOLOGY ORDERABLE S [facility] [place] [address] * Magnesium (05/13/2024 4:00 AM EST) Pathologist [facility] Magnesium 0.85 0.69 - 1.07 mMol/L 05/13/2024 4:55 AM [facility] Blood VENOUS BLOOD SPECIMEN / Unknown Venipuncture / Unknown 05/13/2024 4:00 AM EST 05/13/2024 4:25 AM EST Gordon Lynn MD CHEMISTRY ORDERABLES [facility] [place] [address] * POC, GLUCOSE (05/13/2024 3:59 AM EST) Glucometer, POC 135 65 - 199 mg/dL 05/13/2024 4:12 AM [facility] Comment:Supplemental ranges: <140 mg/dL before meals <180 mg/dL all other times of the day. Blood CAPILLARY BLOOD / Unknown 05/13/2024 3:59 AM EST 05/13/2024 4:12 AM EST Gordon Lynn MD POINT OF CARE TEST O RDERABLES Performing Organization Address City/[facility]/ZIP Co de Phone Number [facility] [place] [address] * EKG 12 Lead (05/12/2024 11:40 PM EST) Ventricular rate 62 BPM MUSE SYSTEM Atrial Rate 62 BPM MUSE SYSTEM P-R Interval 300 ms MUSE SYSTEM QRS Duration 140 ms MUSE SYSTEM Q-T Interval 490 ms MUSE SYSTEM QTC Calculated (Bezet) 497 ms MUSE SYSTEM Calculated P [place] 64 degrees MUSE SYSTEM Calculated R [place] -62 degrees MUSE SYSTEM Calculated T [place] -18 degrees MUSE SYSTEM INTERPRETATION Atrial-paced rhythm with prolonged AV conduction Occasional ventricular-pac ed complexes Left axis deviation Non-specific intra-ventricul ar conduction block Minimal voltage criteria for LVH, may be normal variant ( Saturnino product ) Inferior infarct , age undetermined Abnormal ECG When compared with ECG of 11-MAY-2024 12:40, ventricular-pac ed complexes are now present Confirmed by MD Law Danette ([id number]) on 05/13/2024 3:00:54 PM MUSE SYSTEM 05/12/2024 11:4 0 PM EST 05/13/2024 3:00 PM EST Jero Eric MD ECG ORDERABL ES Performing Organization Address City/[facility]/ZIP Co de Phone Number MUSE SYSTEM * POC, GLUCOSE (05/12/2024 11:05 PM EST) Glucometer, POC 122 65 - 199 mg/dL 05/12/2024 11:05 PM EST [facility] Comment:Supplemental ranges: <140 mg/dL before meals <180 mg/dL all other times of the day. Blood CAPILLARY BLOOD / Unknown 05/12/2024 11:05 PM EST 05/12/2024 11:05 PM EST Gordon Lynn MD POINT OF CARE TEST O SAMPSON Performing Organization Address [facility] Co de Phone Number [facility] [place] [address] * (ABNORMAL) POC, GLUCOSE (05/12/2024 7:36 PM EST) Glucometer, POC 307(H) 65 - 199 mg/dL 05/12/2024 7:36 PM EST [facility] Comment:Supplemental ranges: <140 mg/dL before meals <180 mg/dL all other times of the day. Blood CAPILLARY BLOOD / Unknown 05/12/2024 7:36 PM EST 05/12/2024 7:36 PM EST Gordon Lynn MD POINT OF CARE TEST O SAMPSON Performing Organization Address [facility] Co de Phone Number [facility] [place] [address] * (ABNORMAL) POC, GLUCOSE (05/12/2024 5:21 PM EST) Glucometer, POC 341(H) 65 - 199 mg/dL 05/12/2024 5:21 PM EST [facility] Comment:Supplemental ranges: <140 mg/dL before meals <180 mg/dL all other times of the day. Blood CAPILLARY BLOOD / Unknown 05/12/2024 5:21 PM EST 05/12/2024 5:21 PM EST Gordon Lynn MD POINT OF CARE TEST O SAM[place]ON Performing Organization Address City/[facility] Co de Phone Number [facility] [place] [address] * Magnesium (05/12/2024 3:55 PM EST) Magnesium 0.77 0.69 - 1.07 mMol/L 05/12/2024 4:42 PM EST [facility] Blood VENOUS BLOOD SPECIMEN / Unknown Venipuncture / Unknown 05/12/2024 3:55 PM EST 05/12/2024 4:04 PM EST Gordon Lynn MD CHEMISTRY ORDERABLES [facility] [place] [address] * (ABNORMAL) Basic Metabolic Panel (05/12/2024 3:55 PM EST) Glucose 367(H) 65 - 199 mg/dL 05/12/2024 5:02 PM EST [facility] Comment: Glucose Concentration >=200 mg/dL plus symptoms is consistent with Diabetes Mellitus. Repeated and verified. Blood Urea Nitrogen 21(H) 10 - 20 mg/dL 05/12/2024 5:02 PM [facility] Creatinine 1.08 0.80 - 1.50 mg/dL 05/12/2024 5:02 PM [facility] Sodium 133(L) 135 - 145 mMol/L 05/12/2024 5:02 PM [facility] Potassium 4.3 3.5 - 5.0 mMol/L 05/12/2024 5:02 PM [facility] Chloride 98 98 - 107 mMol/L 05/12/2024 5:02 PM [facility] Carbon Dioxide 20(L) 22 - 31 mMol/L 05/12/2024 5:02 PM [facility] Anion Gap 15 5 - 15 mMol/L 05/12/2024 5:02 PM [facility] Calcium 8.9 8.5 - 10.5 mg/dL 05/12/2024 5:02 PM [facility] Est Glomerular Filtration Rate - Male 72 mL/min/1. 73 m?? 05/12/2024 5:02 PM [facility] Comment: This patient's estimated GFR was [...] Lynn MD CHEMISTRY ORDERABLES Performing Organization Address City/[facility] Co de Phone Number [facility] [place] [address] * (ABNORMAL) POC, GLUCOSE (05/12/2024 3:32 PM EST) Glucometer, POC 315(H) 65 - 199 mg/dL 05/12/2024 3:33 PM EST [facility] Comment:Supplemental ranges: <140 mg/dL before meals <180 mg/dL all other times of the day. Blood CAPILLARY BLOOD / Unknown 05/12/2024 3:32 PM EST 05/12/2024 3:33 PM EST Gordon Lynn MD POINT OF CARE TEST O RDERABLES Performing Organization Address City/[facility]/ZIP Co de Phone Number [facility] [place] [address] * (ABNORMAL) POC, GLUCOSE (05/12/2024 11:57 AM EST) Glucometer, POC 212(H) 65 - 199 mg/dL 05/12/2024 11:57 AM EST [facility] Comment:Supplemental ranges: <140 mg/dL before meals <180 mg/dL all other times of the day. Blood CAPILLARY BLOOD / Unknown 05/12/2024 11:57 AM EST 05/12/2024 11:57 AM EST Gordon Lynn MD POINT OF CARE TEST O RDMARY Performing Organization Address [facility]/ZIP Co de Phone Number [facility] [place] [address] * POC, GLUCOSE (05/12/2024 7:12 AM EST) Glucometer, POC 136 65 - 199 mg/dL 05/12/2024 7:12 AM [facility] Comment:Supplemental ranges: <140 mg/dL before meals <180 mg/dL all other times of the day. Blood CAPILLARY BLOOD / Unknown 05/12/2024 7:12 AM EST 05/12/2024 7:12 AM EST Gordon Lynn MD POINT OF CARE TEST O SAMPSON Performing Organization Address [facility] Co de Phone Number [facility] [place] [address] * (ABNORMAL) Basic Metabolic Panel (05/12/2024 3:19 AM EST) Glucose 111 65 - 199 mg/dL 05/12/2024 4:09 AM [facility] Comment:Glucose Concentratio n >=200 mg/dL plus symptoms is consistent with Diabetes Mellitus. Blood Urea Nitrogen 23(H) 10 - 20 mg/dL 05/12/2024 4:09 AM [facility] Creatinine 1.15 0.80 - 1.50 mg/dL 05/12/2024 4:09 AM [facility] Sodium 138 135 - 145 mMol/L 05/12/2024 4:09 AM [facility] Potassium 4.5 3.5 - 5.0 mMol/L 05/12/2024 4:09 AM [facility] Chloride 101 98 - 107 mMol/L 05/12/2024 4:09 AM [facility] Carbon Dioxide 25 22 - 31 mMol/L 05/12/2024 4:09 AM [facility] Anion Gap 12 5 - 15 mMol/L 05/12/2024 4:09 AM EST [facility] Calcium 9.3 8.5 - 10.5 mg/dL 05/12/2024 4:09 AM EST [facility] Est Glomerular Filtration Rate - Male 67 mL/min/1. 73 m?? 05/12/2024 4:09 AM [facility] Comment: This patient's estimated GFR was [...] AM EST Gordon Lynn MD CHEMISTRY ORDERABLES [facility] [place] [address] * (ABNORMAL) CBC (with Diff) (05/12/2024 3:19 AM EST) White Blood Cell 6.92 4.00 - 9.50 x10(3)/mc L 05/12/2024 3:52 AM [facility] Red Blood Cell 4.78 4.58 - 5.54 x10(6)/mc L 05/12/2024 3:52 AM [facility] Hemoglobin 14.3 13.7 - 16.5 g/dL 05/12/2024 3:52 AM [facility] Hematocrit 42.3 40.5 - 48.5 % 05/12/2024 3:52 AM [facility] Mean Cell Volume 88.5 82.9 - 93.1 fL 05/12/2024 3:52 AM [facility] Mean Cell Hemoglobin 29.9 27.5 - 32.1 pg 05/12/2024 3:52 AM [facility] Mean Cell Hemoglobin Concentration 33.8 32.0 - 35.7 g/dL 05/12/2024 3:52 AM [facility] Platelet 195 145 - 357 x10(3)/mc L 05/12/2024 3:52 AM [facility] Mean Platelet Volume 9.2 7.6 - 12.9 fL 05/12/2024 3:52 AM [facility] RDW Standard Deviation 41.9 36.0 - 45.0 fL 05/12/2024 3:52 AM [facility] RDW coefficient of variation 13.0 11.4 - 13.8 % 05/12/2024 3:52 AM [facility] NRBC% auto 0.0 % 05/12/2024 3:52 AM [facility] NRBC Absolute <0.01 <0.01 x10(3)/mc L 05/12/2024 3:52 AM [facility] Neutrophil % 45.0 % 05/12/2024 3:52 AM [facility] Neutrophil Absolute (ANC) - Automated 3.12 1.70 - 6.10 x10(3)/mc L 05/12/2024 3:52 AM [facility] Lymph % 37.3 % 05/12/2024 3:52 AM [facility] Lymph Absolute 2.58 0.90 - 3.20 x10(3)/mc L 05/12/2024 3:52 AM [facility] Monocyte % 8.7 % 05/12/2024 3:52 AM [facility] Monocyte Absolute 0.60 0.30 - 0.90 x10(3)/mc L 05/12/2024 3:52 AM [facility] Eos % 7.7 % 05/12/2024 3:52 AM [facility] Eos Absolute 0.53(H) 0.00 - 0.40 x10(3)/mc L 05/12/2024 3:52 AM [facility] Basophil % 0.7 % 05/12/2024 3:52 AM [facility] Baso Absolute 0.05 0.00 - 0.10 x10(3)/mc L 05/12/2024 3:52 AM [facility] Immature Gran % 0.6 % 3:52 AM [facility] Immature Gran Absolute 0.04 0.00 - 0.04 x10(3)/mc L 05/12/2024 3:52 AM [facility] Blood VENOUS BLOOD SPECIMEN / Unknown Venipuncture / Unknown 05/12/2024 3:19 AM EST 05/12/2024 3:40 AM EST Gordon Lynn MD HEMATOLOGY ORDERABLE S [facility] [place] [address] * Magnesium (05/12/2024 3:19 AM EST) [facility] Magnesium 0.80 0.69 - 1.07 mMol/L 05/12/2024 4:09 AM [facility] Blood VENOUS BLOOD SPECIMEN / Unknown Venipuncture / Unknown 05/12/2024 3:19 AM EST 05/12/2024 3:40 AM EST Gordon Lynn MD CHEMISTRY ORDERABLES [facility] [place] [address] * POC, GLUCOSE (05/12/2024 3:18 AM EST) Glucometer, POC 104 65 - 199 mg/dL 05/12/2024 3:18 AM [facility] Comment:Supplemental ranges: <140 mg/dL before meals <180 mg/dL all other times of the day. Blood CAPILLARY BLOOD / Unknown 05/12/2024 3:18 AM EST 05/12/2024 3:18 AM EST Gordon Lynn MD POINT OF CARE TEST Catie BRADEN Performing Organization Address [facility] Co de Phone Number [facility] [place] [address] * POC, GLUCOSE (05/11/2024 11:16 PM EST) Glucometer, POC 192 65 - 199 mg/dL 05/11/2024 11:16 PM EST [facility] Comment:Supplemental ranges: <140 mg/dL before meals <180 mg/dL all other times of the day. Blood CAPILLARY BLOOD / Unknown 05/11/2024 11:16 PM EST 05/11/2024 11:16 PM EST Gordon Lynn MD POINT OF CARE TEST Catie BRADEN Performing Organization Address [facility] Co de Phone Number [facility] [place] [address] * (ABNORMAL) POC, GLUCOSE (05/11/2024 8:06 PM EST) Glucometer, POC 304(H) 65 - 199 mg/dL 05/11/2024 8:07 PM EST [facility] Comment:Supplemental ranges: <140 mg/dL before meals <180 mg/dL all other times of the day. Blood CAPILLARY BLOOD / Unknown 05/11/2024 8:06 PM EST 05/11/2024 8:07 PM EST Gordon Lynn MD POINT OF CARE TEST O SAMPSON Performing Organization Address City/[facility] Co de Phone Number [facility] [place] [address] * (ABNORMAL) POC, GLUCOSE (05/11/2024 4:54 PM EST) Glucometer, POC 297(H) 65 - 199 mg/dL 05/11/2024 4:54 PM EST [facility] Comment:Supplemental ranges: <140 mg/dL before meals <180 mg/dL all other times of the day. Blood CAPILLARY BLOOD / Unknown 05/11/2024 4:54 PM EST 05/11/2024 4:54 PM EST Gordon Lynn MD POINT OF CARE TEST O [facility] Performing Organization Address City/[facility] [place] Co de Phone Number [facility] [place] [address] * (ABNORMAL) POC, GLUCOSE (05/11/2024 4:52 PM EST) Glucometer, POC 346(H) 65 - 199 mg/dL 05/11/2024 4:54 PM EST [facility] Comment:Supplemental ranges: <140 mg/dL before meals <180 mg/dL all other times of the day. Blood CAPILLARY BLOOD / Unknown 05/11/2024 4:52 PM EST 05/11/2024 4:54 PM EST Gordon Lynn MD POINT OF CARE TEST O [facility] Performing Organization Address City/[facility] [place] Co de Phone Number [facility] [place] [address] * EKG 12 Lead (05/11/2024 12:40 PM EST) Ventricular rate 60 BPM MUSE SYSTEM Atrial Rate 60 BPM MUSE SYSTEM P-R Interval 294 ms MUSE SYSTEM QRS Duration 118 ms MUSE SYSTEM Q-T Interval 454 ms MUSE SYSTEM QTC Calculated (Bezet) 454 ms MUSE SYSTEM Calculated R [place] -65 degrees MUSE SYSTEM Calculated T [place] -4 degrees MUSE SYSTEM INTERPRETATION Atrial-paced rhythm [...] Hand MD ECG ORDERABLES Performing Organization Address [facility] Co de Phone Number MUSE SYSTEM * POC, GLUCOSE (05/11/2024 11:03 AM EST) Glucometer, POC 173 65 - 199 mg/dL 05/11/2024 11:03 AM EST [facility] Comment:Supplemental ranges: <140 mg/dL before meals <180 mg/dL all other times of the day. Blood CAPILLARY BLOOD / Unknown 05/11/2024 11:03 AM EST 05/11/2024 11:03 AM EST Gordon Lynn MD POINT OF CARE TEST O RDERABLES Performing Organization Address [facility] de Phone Number [facility] [place] [address] * Magnesium (05/11/2024 8:36 AM EST) Magnesium 0.77 0.69 - 1.07 mMol/L 05/11/2024 9:27 AM EST [facility] Blood VENOUS BLOOD SPECIMEN / Unknown Venipuncture / Unknown 05/11/2024 8:36 AM EST 05/11/2024 8:46 AM EST Gordon Lynn MD CHEMISTRY ORDERABLES Performing Organization Address [facility] Co de Phone Number [facility] [place] [address] * (ABNORMAL) Basic Metabolic Panel (05/11/2024 8:36 AM EST) Glucose 183 65 - 199 mg/dL 05/11/2024 9:27 AM EST [facility] Comment:Glucose Concentratio n >=200 mg/dL plus symptoms is consistent with Diabetes Mellitus. Blood Urea Nitrogen 22(H) 10 - 20 mg/dL 05/11/2024 9:27 AM [facility] Creatinine 1.05 0.80 - 1.50 mg/dL 05/11/2024 9:27 AM [facility] Sodium 138 135 - 145 mMol/L 05/11/2024 9:27 AM [facility] Potassium 4.0 3.5 - 5.0 mMol/L 05/11/2024 9:27 AM [facility] Chloride 102 98 - 107 mMol/L 05/11/2024 9:27 AM [facility] Carbon Dioxide 22 22 - 31 mMol/L 05/11/2024 9:27 AM [facility] Anion Gap 14 5 - 15 mMol/L 05/11/2024 9:27 AM [facility] Calcium 9.3 8.5 - 10.5 mg/dL 05/11/2024 9:27 AM [facility] Est Glomerular Filtration Rate - Male 74 mL/min/1. 73 m?? 05/11/2024 9:27 AM [facility] Comment: This patient's estimated GFR was [...] AM EST Gordon Lynn MD CHEMISTRY ORDERABLES [facility] [place] [address] * (ABNORMAL) CBC (with Diff) (05/11/2024 8:36 AM EST) [facility] White Blood Cell 9.51(H) 4.00 - 9.50 x10(3)/mc L 05/11/2024 9:00 AM [facility] Red Blood Cell 5.42 4.58 - 5.54 x10(6)/mc L 05/11/2024 9:00 AM [facility] Hemoglobin 15.9 13.7 - 16.5 g/dL 05/11/2024 9:00 AM [facility] Hematocrit 46.9 40.5 - 48.5 % 05/11/2024 9:00 AM [facility] Mean Cell Volume 86.5 82.9 - 93.1 fL 05/11/2024 9:00 AM [facility] Mean Cell Hemoglobin 29.3 27.5 - 32.1 pg 05/11/2024 9:00 AM [facility] Mean Cell Hemoglobin Concentration 33.9 32.0 - 35.7 g/dL 05/11/2024 9:00 AM [facility] Platelet 224 145 - 357 x10(3)/mc L 05/11/2024 9:00 AM [facility] Mean Platelet Volume 9.1 7.6 - 12.9 fL 05/11/2024 9:00 AM [facility] RDW Standard Deviation 40.2 36.0 - 45.0 fL 05/11/2024 9:00 AM [facility] RDW coefficient of variation 12.9 11.4 - 13.8 % 05/11/2024 9:00 AM [facility] NRBC% auto 0.0 % 05/11/2024 9:00 AM [facility] NRBC Absolute <0.01 <0.01 x10(3)/mc L 05/11/2024 9:00 AM [facility] Neutrophil % 45.5 % 05/11/2024 9:00 AM [facility] Neutrophil Absolute (ANC) - Automated 4.33 1.70 - 6.10 x10(3)/mc L 05/11/2024 9:00 AM [facility] Lymph % 38.4 % 05/11/2024 9:00 AM [facility] Lymph Absolute 3.65(H) 0.90 - 3.20 x10(3)/mc L 05/11/2024 9:00 AM [facility] Monocyte % 7.4 % 05/11/2024 9:00 AM [facility] Monocyte Absolute 0.70 0.30 - 0.90 x10(3)/mc L 05/11/2024 9:00 AM [facility] Eos % 7.5 % 05/11/2024 9:00 AM [facility] Eos Absolute 0.71(H) 0.00 - 0.40 x10(3)/mc L 05/11/2024 9:00 AM [facility] Basophil % 0.7 % 05/11/2024 9:00 AM [facility] Baso Absolute 0.07 0.00 - 0.10 x10(3)/mc L 05/11/2024 9:00 AM [facility] Immature Gran % 0.5 % 9:00 AM [facility] Immature Gran Absolute 0.05(H) 0.00 - 0.04 x10(3)/mc L 05/11/2024 9:00 AM [facility] Blood VENOUS BLOOD SPECIMEN / Unknown Venipuncture / Unknown 05/11/2024 8:36 AM EST 05/11/2024 8:46 AM EST Gordon Lynn MD HEMATOLOGY ORDERABLE S [facility] [place] [address] * POC, GLUCOSE (05/11/2024 7:12 AM EST) [facility] Signature Glucometer, POC 154 65 - 199 mg/dL 05/11/2024 7:13 AM EST [facility] Comment:Supplemental ranges: <140 mg/dL before meals <180 mg/dL all other times of the day. Blood CAPILLARY BLOOD / Unknown 05/11/2024 7:12 AM EST 05/11/2024 7:13 AM EST Gordon Lynn MD POINT OF CARE TEST O RDERABLES [facility] [place] [address] * U Albumin/Cre Ratio (05/11/2024 12:59 AM EST) Albumin, Urine 45.7 mg/L 05/11/2024 1:46 AM [facility] Creatinine, Urine 155 mg/dL 025 1:46 AM [facility] Albumin / Creatinine Ratio, Urine 29 0 - 29 mcg/mg Cr 05/11/2024 1:46 AM EST [facility] Comment: Reference Ranges: ?? <30 [...] EST Jero Eric MD URINE ORDERA BLES [facility] [place] [address] * POC, GLUCOSE (05/11/2024 12:47 AM EST) Glucometer, POC 167 65 - 199 mg/dL 05/11/2024 12:48 AM EST [facility] Comment:Supplemental ranges: <140 mg/dL before meals <180 mg/dL all other times of the day. Blood CAPILLARY BLOOD / Unknown 05/11/2024 12:47 AM EST 05/11/2024 12:48 AM EST Gordon Lynn MD POINT OF CARE TEST O SAMPSON [facility] [place] [address] * (ABNORMAL) POC, GLUCOSE (05/10/2024 10:13 PM EST) Glucometer, POC 323(H) 65 - 199 mg/dL 05/10/2024 10:13 PM EST [facility] Comment:Supplemental ranges: <140 mg/dL before meals <180 mg/dL all other times of the day. Blood CAPILLARY BLOOD / Unknown 05/10/2024 10:13 PM EST 05/10/2024 10:13 PM EST Gordon Lynn MD POINT OF CARE TEST Catie BRADEN [facility] [place] [address] * (ABNORMAL) POC, GLUCOSE (05/10/2024 8:55 PM EST) Glucometer, POC 338(H) 65 - 199 mg/dL 05/10/2024 8:56 PM EST [facility] Comment:Supplemental ranges: <140 mg/dL before meals <180 mg/dL all other times of the day. Blood CAPILLARY BLOOD / Unknown 05/10/2024 8:55 PM EST 05/10/2024 8:56 PM EST Gordon Lynn MD POINT OF CARE TEST O RDERALOREE Performing Organization Address [facility] Co de Phone Number [facility] [place] [address] * (ABNORMAL) POC, GLUCOSE (05/10/2024 5:41 PM EST) Glucometer, POC 289(H) 65 - 199 mg/dL 05/10/2024 5:41 PM EST [facility] Comment:Supplemental ranges: <140 mg/dL before meals <180 mg/dL all other times of the day. Blood CAPILLARY BLOOD / Unknown 05/10/2024 5:41 PM EST 05/10/2024 5:41 PM EST Gordon Lynn MD POINT OF CARE TEST O CARLOSERALOREE Performing Organization Address [facility] Co de Phone Number [facility] [place] [address] * POC, GLUCOSE (05/10/2024 12:17 PM EST) Glucometer, POC 163 65 - 199 mg/dL 05/10/2024 12:17 PM EST [facility] Comment:Supplemental ranges: <140 mg/dL before meals <180 mg/dL all other times of the day. Blood CAPILLARY BLOOD / Unknown 05/10/2024 12:17 PM EST 05/10/2024 12:17 PM EST Gordon Lynn MD POINT OF CARE TEST O SAMPSON Performing Organization Address [facility] Co de Phone Number [facility] [place] [address] * ECHO COMPLETE W CONTRAST (05/10/2024 9:34 AM EST) EF 47 HEARTLAB SYSTEM Anatomical Region Laterality Modality Cardiac Other 05/10/2024 8:10 AM EST Narrative 05/10/2024 10:21 AM EST ? Version 2 [address] [place] [id number] ? Echocardiogram Report Name: SHAHNAZ SANTIAGO ? Study Date: 05/10/2024 08:10 AMBP: 106/69 mmHg : 1950 ? Height: 185 cm ? Account: [id number] Age: 73 yrs ? Weight: 85 kg [...] EF remains in the same range. Procedure Complete-50924. Image enhancement Optison was used for left [...] Nelson MD - 05/10/2024 Version 2 1 [place] [id number] Echocardiogram Report Name: SHAHNAZ SANTIAGO Study Date: 508:10 AMBP: 106/69 mmHg : 1950 Height: 185 cm Account: [id number] Age: 73 yrs Weight: 85 kg Gender: [...] EF remains in the same range. Procedure Complete-94613. Image enhancement Optison was used for left [...] * POC, GLUCOSE (05/10/2024 7:07 AM EST) [facility] Glucometer, POC 132 65 - 199 mg/dL 05/10/2024 7:07 AM EST [facility] Comment:Supplemental ranges: <140 mg/dL before meals <180 mg/dL all other times of the day. Blood CAPILLARY BLOOD / Unknown 05/10/2024 7:07 AM EST 05/10/2024 7:07 AM EST Bony Corcoran MD POINT OF CARE TEST O RDERABLES [facility] [place] [address] * Troponin-T, High Sensitivity 3 Hour (05/10/2024 3:56 AM EST) Pathologist [facility] Troponin-T, High Sensitivity 15 <=22 ng/L 05/10/2024 4:28 AM [facility] Comment: This patient's troponin T concentration [...] troponin value can be found in the [facility] Laboratory Test Catalog Troponin - [email or web address]-.testcatalog.org/catalogs/565/files/70440 Reference: Fourth [place] Definition of Myocardial Infarction. Journal of the [place] [employer] 2018;72:6517-1242 Troponin-T, HS 3 hr delta 2 ng/L 05/10/2024 4:28 AM EST [facility] Comment:The 3 hour Troponin T delta value is the absolute difference between the Troponin T concentrations of the initial and subsequent sample collected between 2 h: 45 min and 6 h following the initial collection Blood VENOUS BLOOD SPECIMEN / Unknown Venipuncture / Unknown 05/10/2024 3:56 AM EST 05/10/2024 4:01 AM EST Jero Eric MD CHEMISTRY OR DERABLES Performing Organization Address City/[facility] Co de Phone Number [facility] [place] [address] * COVID-19 PCR (05/10/2024 1:48 AM EST) Pathologist [facility] SARS-CoV-2 RNA (Rapid) Not Detected Not Detected 05/10/2024 3:28 AM EST [facility] Swab SPECIMEN FROM NASOPHARYNGEAL STRUCTURE / Unknown Non Blood Collection / Unknown 05/10/2024 1:48 AM EST 05/10/2024 1:49 AM EST Jero Eric MD MICROBIOLOGY - GENERAL ORDERABLES Performing Organization Address [facility] Co de Phone Number [facility] [place] [address] * Troponin-T, High Sensitivity 1 Hour (05/10/2024 1:17 AM EST) Pathologist [facility] Troponin-T, High Sensitivity 13 <=22 ng/L 05/10/2024 1:52 AM EST [facility] Comment: This patient's troponin T [...] troponin value can be found in the [facility] Laboratory Test Catalog Troponin - https://[email or web address].org/catalogs/565/files/24820 Reference: Fourth [place] Definition of Myocardial Infarction. Journal of the [place] [employer] 2018;72:2459-9979 Troponin-T, HS 1 hr delta 0 ng/L 05/10/2024 1:52 AM EST [facility] Comment:The 1 hour Troponin T delta value is the absolute difference between the Troponin T concentrations of the initial and subsequent sample collected between 45 - 120 minutes following the initial collection. Blood VENOUS BLOOD SPECIMEN / Unknown Venipuncture / Unknown 05/10/2024 1:17 AM EST 05/10/2024 1:27 AM EST Jero Eric MD CHEMISTRY OR DERABLES Performing Organization Address [facility] Co de Phone Number [facility] [place] [address] * EKG 12 Lead (05/10/2024 12:42 AM EST) Ventricular rate 60 BPM MUSE SYSTEM QRS Duration 134 ms MUSE SYSTEM Q-T Interval 468 ms MUSE SYSTEM QTC Calculated (Bezet) 468 ms MUSE SYSTEM Calculated R [place] -64 degrees MUSE SYSTEM Calculated T [place] 6 degrees MUSE SYSTEM INTERPRETATION Atrial fibrillation with frequent ventricular-pac ed complexes Left axis deviation Non-specific intra-ventricul ar conduction block Inferior infarct , age undetermined Abnormal ECG When compared with ECG of 12-DEC-2020 10:44, Electronic ventricular pacemaker has replaced Electronic atrial pacemaker Confirmed by MD Clair, Kit ([id number]) on 05/10/2024 1:00:22 PM MUSE SYSTEM 05/10/2024 12:4 2 AM EST 05/10/2024 1:00 PM EST Jero Eric MD ECG ORDERABL ES MUSE SYSTEM * Troponin-T, High Sensitivity (05/10/2024 12:21 AM EST) Troponin-T, High Sensitivity Initial 13 <=22 ng/L 05/10/2024 1:16 AM EST [facility] Comment: This patient's troponin T [...] troponin value can be found in the [facility] Laboratory Test Catalog Troponin - https://[email or web address].testcatalog.org/catalogs/565/files/53262 Reference: Fourth [place] Definition of Myocardial Infarction. Journal of the [place] [employer] 2018;72:9480-8649 Blood VENOUS BLOOD SPECIMEN / Unknown Venipuncture / Unknown 05/10/2024 12:21 AM EST 05/10/2024 12:38 AM EST Jero Eric MD CHEMISTRY OR DERABLES Performing Organization Address City/[facility]/ZIP Co de Phone Number [facility] [place] [address] * (ABNORMAL) Prothrombin Time (05/10/2024 12:21 AM EST) Prothrombin Time 16.1(H) 9.4 - 12.5 sec 05/10/2024 12:46 AM EST [facility] International Normalization Ratio 1.4 <=4.9 05/10/2024 12:46 AM EST [facility] Comment: An INR < 2.0 [...] MD HEMATOLOGY O RDERABLES Performing Organization Address [facility] Co de Phone Number [facility] [place] [address] * TSH [place] (05/10/2024 12:21 AM EST) Thyroid Stimulating Hormone 0.63 0.27 - 4.20 mcIU/mL 05/10/2024 1:16 AM EST [facility] Blood VENOUS BLOOD SPECIMEN / Unknown Venipuncture / Unknown 05/10/2024 12:21 AM EST 05/10/2024 12:38 AM EST Jero Eric MD CHEMISTRY OR DERABLES Performing Organization Address City/[facility]/ZIP Co de Phone Number [facility] [place] [address] * (ABNORMAL) pro-Brain Natriuretic Peptide (05/10/2024 12:21 AM EST) NT-proBNP 1,065(H) <=124 pg/mL 05/10/2024 1:16 AM EST [facility] Blood VENOUS BLOOD SPECIMEN / Unknown Venipuncture / Unknown 05/10/2024 12:21 AM EST 05/10/2024 12:38 AM EST Jero Eric MD CHEMISTRY OR DERABLES [facility] [place] [address] * Phosphorus (05/10/2024 12:21 AM EST) Phosphorus 2.9 2.5 - 4.5 mg/dL 05/10/2024 1:16 AM EST [facility] Blood VENOUS BLOOD SPECIMEN / Unknown Venipuncture / Unknown 05/10/2024 12:21 AM EST 05/10/2024 12:38 AM EST Jero Eric MD CHEMISTRY OR DERABLES Performing Organization Address City/[facility]/ZIP Co de Phone Number [facility] [place] [address] * Magnesium (05/10/2024 12:21 AM EST) Magnesium 0.83 0.69 - 1.07 mMol/L 05/10/2024 1:16 AM EST [facility] Blood VENOUS BLOOD SPECIMEN / Unknown Venipuncture / Unknown 05/10/2024 12:21 AM EST 05/10/2024 12:38 AM EST Jero Eric MD CHEMISTRY OR DERABLES Performing Organization Address City/[facility]/ZIP Co de Phone Number [facility] [place] [address] * (ABNORMAL) Comprehensive metabolic panel (05/10/2024 12:21 AM EST) Glucose 156 65 - 199 mg/dL 05/10/2024 1:16 AM EST [facility] Comment:Glucose Concentratio n >=200 mg/dL plus symptoms is consistent with Diabetes Mellitus. Blood Urea Nitrogen 18 10 - 20 mg/dL 05/10/2024 1:16 AM EST [facility] Creatinine 0.92 0.80 - 1.50 mg/dL 05/10/2024 1:16 AM [facility] Sodium 140 135 - 145 mMol/L 05/10/2024 1:16 AM [facility] Potassium 4.6 3.5 - 5.0 mMol/L 05/10/2024 1:16 AM [facility] Chloride 105 98 - 107 mMol/L 05/10/2024 1:16 AM [facility] Carbon Dioxide 25 22 - 31 mMol/L 05/10/2024 1:16 AM [facility] Anion Gap 10 5 - 15 mMol/L 05/10/2024 1:16 AM [facility] Calcium 9.2 8.5 - 10.5 mg/dL 05/10/2024 1:16 AM [facility] Protein, Total 7.1 6.1 - 8.0 g/dL 05/10/2024 1:16 AM [facility] Albumin 4.1 3.2 - 5.2 g/dL 05/10/2024 1:16 AM [facility] Aspartate Aminotransferase 40(H) <=39 unit/L 05/10/2024 1:16 AM [facility] Alanine Aminotransferase 42 0 - 55 unit/L 05/10/2024 1:16 AM [facility] Alkaline Phosphatase 61 40 - 130 unit/L 05/10/2024 1:16 AM [facility] Bilirubin, Total 0.3 <=1.3 mg/dL 05/10/2024 1:16 AM [facility] Est Glomerular Filtration Rate - Male 87 mL/min/1. 73 m?? 05/10/2024 1:16 AM [facility] Comment: This patient's estimated GFR was [...] EST Jero Eric MD CHEMISTRY OR DERABLES [facility] [place] [address] * (ABNORMAL) Hemoglobin A1c (05/10/2024 12:20 AM EST) Hemoglobin A1c 8.6(H) 4.3 - 5.6 % 05/10/2024 1:51 AM EST [facility] Comment: Per ADA guidelines, without [...] red blood cell turnover may not be commercial pest control representative of glycemic control. Reference Interval: 4.3 - 5.6% 5.7 - 6.4%: Consistent with prediabetes >=6.5%: Consistent with diagnosis of diabetes mellitus Estimated Average Glucose 05/10/2024 1:51 AM EST [facility] Comment:Estimated Average Gl ucose not appropriate for patients over 70 years of age. Blood VENOUS BLOOD SPECIMEN / Unknown Venipuncture / Unknown 05/10/2024 12:20 AM EST 05/10/2024 12:38 AM EST Narrative [facility] - 05/10/2024 1:51 AM EST Estimated average glucose (eAG) is calculated from the equation described in: Raymundo HOLDEN, Wanda J, Emery R, et al. ??Translating the A1C assay into estimated average glucose values. ??Diabetes Care 2008:31(8):3027-8116. Additional resources are available on the ADA website (diabetes.org). Bony Corcoran MD CHEMISTRY ORDERABLES [facility] [place] [address] * (ABNORMAL) CBC (with Diff) (05/10/2024 12:20 AM EST) White Blood Cell 7.51 4.00 - 9.50 x10(3)/mc L 05/10/2024 12:42 AM [facility] Red Blood Cell 5.13 4.58 - 5.54 x10(6)/mc L 05/10/2024 12:42 AM [facility] Hemoglobin 14.9 13.7 - 16.5 g/dL 05/10/2024 12:42 AM [facility] Hematocrit 45.8 40.5 - 48.5 % 05/10/2024 12:42 AM [facility] Mean Cell Volume 89.3 82.9 - 93.1 fL 05/10/2024 12:42 AM [facility] Mean Cell Hemoglobin 29.0 27.5 - 32.1 pg 05/10/2024 12:42 AM [facility] Mean Cell Hemoglobin Concentration 32.5 32.0 - 35.7 g/dL 05/10/2024 12:42 AM [facility] Platelet 216 145 - 357 x10(3)/mc L 05/10/2024 12:42 AM [facility] Mean Platelet Volume 9.1 7.6 - 12.9 fL 05/10/2024 12:42 AM [facility] RDW Standard Deviation 42.0 36.0 - 45.0 fL 05/10/2024 12:42 AM [facility] RDW coefficient of variation 12.8 11.4 - 13.8 % 05/10/2024 12:42 AM [facility] NRBC% auto 0.0 % 05/10/2024 12:42 AM [facility] NRBC Absolute <0.01 <0.01 x10(3)/mc L 05/10/2024 12:42 AM [facility] Neutrophil % 50.3 % 05/10/2024 12:42 AM [facility] Neutrophil Absolute (ANC) - Automated 3.78 1.70 - 6.10 x10(3)/mc L 05/10/2024 12:42 AM [facility] Lymph % 32.5 % 05/10/2024 12:42 AM [facility] Lymph Absolute 2.44 0.90 - 3.20 x10(3)/mc L 05/10/2024 12:42 AM [facility] Monocyte % 7.2 % 05/10/2024 12:42 AM [facility] Monocyte Absolute 0.54 0.30 - 0.90 x10(3)/mc L 05/10/2024 12:42 AM [facility] Eos % 8.8 % 05/10/2024 12:42 AM [facility] Eos Absolute 0.66(H) 0.00 - 0.40 x10(3)/mc L 05/10/2024 12:42 AM [facility] Basophil % 0.8 % 05/10/2024 12:42 AM [facility] Baso Absolute 0.06 0.00 - 0.10 x10(3)/mc L 05/10/2024 12:42 AM [facility] Immature Gran % 0.4 % 12:42 AM [facility] Immature Gran Absolute <0.04 0.00 - 0.04 x10(3)/mc L 05/10/2024 12:42 AM [facility] Blood VENOUS BLOOD SPECIMEN / Unknown Venipuncture / Unknown 05/10/2024 12:20 AM EST 05/10/2024 12:38 AM EST Jero Eric MD HEMATOLOGY O RDERABLES Performing Organization Address City/[facility]/ZIP Co de Phone Number [facility] [place] [address] * POC, GLUCOSE (05/09/2024 10:43 PM EST) Glucometer, POC 163 65 - 199 mg/dL 05/09/2024 10:43 PM EST [facility] Comment:Supplemental ranges: <140 mg/dL before meals <180 mg/dL all other times of the day. Blood CAPILLARY BLOOD / Unknown 05/09/2024 10:43 PM EST 05/09/2024 10:43 PM EST Bony Corcoran MD POINT OF CARE TEST O RDMARY Performing Organization Address [facility] Co de Phone Number [facility] [place] [address] documented in this encounter Visit Diagnoses Not on filedocumented in this encounter Admitting Diagnoses Diagnosis Ventricular tachycardia Paroxysmal ventricular tachycardia documented in this encounter Administered Medications Inactive Administered Medications - up to 3 most recent administrations Medication Order MAR Action Action Date Dose Rate Site AMIOdarone (Nexterone) (1.8 mg/mL) in dextrose (iso-osmotic) [...] 9:32 AM EST 0.5 mg/min 16.7 mL/hr atorvastatin (Lipitor) tablet 20 mg 20 mg, Oral, DAILY, First dose on Thu05/10/24 at 0900, Until Discontinued, Routine Given 05/14/2024 8:45 AM EST 20 mg Given 05/13/2024 8:24 AM EST 20 mg Given 05/12/2024 8:19 AM EST 20 mg bisacodyL (Dulcolax) suppository 10 mg 10 mg, Rectal, DAILY PRN, Starting on Thu05/10/24 at 0634, Until 05/14/24 at 1834, Constipation, Routine cholecalciferoL (Vitamin D3) [...] Routine Given 05/14/2024 8:43 AM EST 15 Unit s insulin lispro (HumaLOG;Admelog) (100 unit/mL) subcutaneous injection [...] Given 05/12/2024 8:18 AM EST 40 mg phenoL 1.4% (Chloraseptic) spray 1 spray 1 spray, Oral, EVERY 4 HOURS PRN, Starting on Thu05/14/24 at 0046, Until Thu05/14/24 at 1834, Irritation, Routine Given 05/14/2024 2:58 AM EST 1 spray polyethylene glycoL (Miralax) packet 17 g 17 g, Oral, DAILY PRN, Starting on Thu05/11/24 at 0930, Until Thu05/14/24 at 1834, Constipation, Routine psyllium husk 1 [...] Oral, EVERY 6 HOURS PRN, Starting on Deloris 05/12/24 at 2000, Until 05/14/24 at 1834, Cramping, [...] Routine 1422 (New Bag - Provider: Loreto Covarrubias RN)1432 (Hold - Provider: Loreto Covarrubias RN - Reason: See comment - Comment: Bolus completed) AMIOdarone (Pacerone) tablet 200 mg (CANCELED) 200 mg, Oral, DAILY, First dose (after last modification) on Thu05/11/24 at 0900, Until Discontinued, Routine 0819 (Given - Provider: Loreto Covarrubias RN) AMIOdarone (Pacerone) tablet 400 mg (COMPLETED) 400 mg, Oral, ONCE, 1 dose, On 05/14/24 at 1545, Routine 1548 (Given - Provider: Adis Berman, NAHUN) atorvastatin (Lipitor) tablet 20 mg 20 mg, Oral, DAILY, First dose on Thu05/10/24 at 0900, Until Discontinued, Routine 0819 (Given - Provider: Loreto Covarrubias RN) 0824 [...] Covarrubias RN) 0827 (Given - Provider: Adis Berman RN) 0847 (Given - Provider: Adis Berman, [...] Routine 0832 (Given - Provider: Adis Berman, RN) insulin lispro (HumaLOG;Admelog) (100 unit/mL) subcutaneous [...] - Reason: NPO)1331 (Given - Provider: Loreto Covarrubias RN)1721 (Given - Provider: Loreto Covarrubias RN) 1038 (Given - Provider: Adis Berman RN)1612 (Not Given - Provider: Elvia Sweet RN [...] Adis Berman RN)1238 (Given - Provider: Adis Berman, RN)1630 (Due) insulin lispro (HumaLOG;Admelog) (100 unit/mL) [...] documented for 0800)1157 (Given - Provider: Loreto Covarrubisa RN)1547 (Given - Provider: Loreto Covarrubias RN)1720 (Given - Provider: Loreto Covarrubias RN)2030 (Given - Provider: Jaron Brown RN) 0000 (Not Given - Provider: Jaron Brown RN - Reason: Order parameters not met - Comment: bg 122)0400 (Not Given - Provider: Jaron Brown RN - Reason: Order parameters not met - Comment: BG 132- Glucometer continuously rebooting)0833 (Given - Provider: Adis Berman RN)1206 (Given - Provider: Adis Berman, RN)1344 (Given - Provider: Adis Berman, RN)1612 (Given - Provider: Elvia Sweet RN)2025 (Given - Provider: Jaron Brown RN) insulin [...] hours, Routine 0006 (Given - Provider: Jaron rBown, NAHUN)0447 (Given - Provider: Jaron Brown, NAHUN)0843 (Given - Provider: Adis Berman, RN)1239 (Given - Provider: Adis Berman, RN)1454 (Given - Provider: Adis Berman, RN)1600 (Due) lamoTRIgine (LaMICtal) tablet 200 mg (CANCELED) 200 mg, Oral, DAILY, First dose (after last modification) on Thu05/10/24 at 0900, Until Discontinued, Routine 0818 (Given - Provider: Loreto Covarrubias, NAHUN) 0825 (Given - Provider: Adis Berman, RN) [...] 0825 (Given - Provider: Adis Berman, RN) 0845 (Given - Provider: Adis Berman, RN) magnesium oxide (Mag-Ox) tablet 400 mg 400 mg, Oral, 2 TIMES DAILY, First dose on Thu05/10/24 at 2100, Until Discontinued, Routine 0819 (Given - Provider: Loreto Covarrubias RN)2028 (Given - Provider: Jaron Brown RN) 08 (Given - Provider: Adis Berman, NAHUN)2022 (Given - Provider: Jaron Brown, NAHUN) 0846 (Given - Provider: Adis Berman, NAHUN) metoproloL tartrate (Lopressor) tablet 25 mg 25 mg, Oral, EVERY 6 HOURS SCHEDULED, First dose on Thu05/10/24 at 0200, Until Discontinued, Hold for SBP < 105 mm, Routine 0242 (Given - Provider: Jaron Brown RN)08 (Given - Provider: Loreto Covarrubias RN)133 (Given - Provider: Loreto Covarrubias RN)2028 (Given - Provider: Jaron Brown, NAHUN) 025 (Given - Provider: Jaron Brown, NAHUN)0827 (Given - Provider: Adis Berman, NAHUN)1348 (Given - Provider: Adis Berman, NAHUN)202 (Given - Provider: Jaron Brown, NAHUN) 0257 (Given - Provider: Jaron Brown, NAHUN)0846 (Given - Provider: Adis Berman, NAHUN)1448 (Given - Provider: Adis Berman, RN) pantoprazole EC (Protonix) tablet 40 mg 40 mg, Oral, DAILY, First dose on Thu05/10/24 at 0900, Until Discontinued, DO NOT CRUSH OR OPEN, Routine 0818 (Given - Provider: Loreto Covarrubias RN) 0824 (Given - Provider: Adis Berman, RN) 0845 (Given - Provider: Adis Berman, RN) psyllium husk 1 packet 1 packet, Oral, 2 TIMES DAILY, First dose on 1/21/25 at 0900, Until Discontinued, Mix each packet with 8 ounces of water., Routine 0900 (Not Given - Provider: Loreto Covarrubias RN - Reason: NPO)2029 (Given - Provider: Jaron Brown RN) 0900 (Not Given - Provider: Adis Berman RN - Reason: Patient/family refused)2031 (Given - Provider: Jaron Brown RN) 0847 (Given - Provider: Adis Berman RN) rivaroxaban (Xarelto) tablet 20 mg 20 mg, Oral, DAILY, First dose on Thu05/10/24 at 0900, Until Discontinued, Routine, rivaroxaban (Xarelto) Indication: Non-Valvular Atrial Fibrillation 0819 (Given - Provider: Loreto Covarrubias RN) 08 (Given - Provider: Adis Berman RN) 0845 (Given - Provider: Adis Berman RN) sodium chloride 0.9 % (flush) (BD PosiFlush Normal Saline 0.9) flush 5 mL 5 mL, Intravenous, 2 Times Daily, First dose on Thu05/11/24 at 0900, Until Discontinued, Routine 0820 (Given - Provider: Loreto Covarrubias RN)2039 (Given - Provider: Jaron Brown RN) 09 (Not Given - Provider: Adis Berman RN - Reason: See comment - Comment: infusing)2026 (Given - Provider: Jaron Brown RN) 09 (Not Given - Provider: Adis Berman RN - Reason: See comment - Comment: infusing) sodium chloride 0.9 % (flush) (BD PosiFlush Normal Saline 0.9) flush 5 mL 5 mL, Intravenous, 2 TIMES DAILY, First dose on Thu05/11/24 at 1215, Until Discontinued, Routine 0819 (Given - Provider: Loreto Covarrubias RN)2038 (Given - Provider: Jaron Brown RN) 0828 (Given - Provider: Adis Berman RN)2022 (Given - Provider: Jaron Brown RN) 0848 (Given - Provider: Adis Berman RN) [...] Medication 1432 (New Bag - Provider: Loreto Covarrubias RN)171 (New Bag - Provider: Loreto Covarrubias, NAHUN)2033 (Rate/Dose Verify - Provider: Jaron Brown RN)2100 (Stopped - Provider: Jaron Brown RN) AMIOdarone [...] Medication 2044 (New Bag - Provider: Jaron Brown RN)225 (New Bag - Provider: Jaron Brown RN) 0932 (New Bag - Provider: Adis Berman, NAHUN)2031 (New Bag - Provider: Jaron Brown RN - Comment: Amio was previously in right PIV, site rotated to left) 0785 (New Bag - Provider: Adis Berman RN) [...] Oral, EVERY 4 HOURS PRN, Starting on 05/14/24 at 0046, Until 05/14/24 at 1834, Irritation, Routine 0258 (Given - Provider: Jaron Brown, NAHUN) polyethylene glycoL (Miralax) packet 17 g 17 g, Oral, DAILY PRN, Starting on Thu05/11/24 at 0930, Until 05/14/24 at 1834, Constipation, Routine simethicone (Mylicon) (40 mg/0.6mL) oral liquid 40 mg 40 mg, Oral, EVERY 6 HOURS PRN, Starting on Deloris 05/12/24 at 2000, Until 05/14/24 at 1834, Cramping, Routine 2137 (Given - Provider: Jaron Brown, NAHUN - Comment: Bloating) sodium chloride 0.9 % [...] Routine 2259 (Given - Provider: Jaron Brown, RN) 0131 (Given - Provider: Johanna Lewis, NAHUN) Linked Groups Order Group 1: AMIOdarone (CORDARONE) [...] documented as of this encounter Care Teams Tin Flopper Relationship Specialty Start Date End Date Ralph [place] [address] PCP - General Internal Medicine 05/09/24 documented as of this encounter
--- OUTSIDE RECORDS SUMMARY | 2024-05-24 14:23 | XMS_ITS | Encounter Summary ---
Author Organization [facility] Address [facility] [place] [address] Care Team Providers Care Sales Support Consultant Name Role Phone Dewayne Carrington MD Primary Care Provider Reason for Visit * Consultation (Routine) - Closed Specialty Diagnoses / Procedures Referred By Conteddie t Referred To Contact Gastroenterology Diagnoses Steatohepatitis Dewayne Carrington MD [address] [place] [address] [facility] [address] [place] [address] Referral ID Status Reason Start Date Expiration Date V isits Requested Visits Authorized [id number] Closed Consult, Test & Treat PCP Updated and/or Approved 02/22/2022 02/22/2023 6 6 Encounter Details Date Type Department Care Team (Late st Contact Info) Description 03/18/2022 2:30 PM EST Office [place] [phone] Elsie Cristobal MD [facility] [place] [address] Fatty liver Social History Tobacco Use Types [...] Vitals: 03/18/22 1439 BP: 115/62 BP Location ([facility]): Right arm Patient Position: Sitting BP Cuff [...] Cristobal MD Section of Gastroenterology & Hepatology [address] [place], [place] [id number] Cc: Dewayne Carrington MD documented in this encounter Procedure Notes * Elsie Cristobal MD - 03/18/2022 2:30 PM ESTAssociated Order(s): FIBROSCAN Procedure(s): FIBROSCAN Pre-Procedure Diagnose(s): Fatty liver [facility] Liver Fibrosis Assessment Report Indication: Fatty liver Performed by: Elsie Cristobal MD Procedure: Vibration Controlled Transient Elastography (VCTE) or Fibroscan [place] Protocol: Patient's identity, procedure and site were [...] EST Hospital Encounter Non-Invasive [place] [address] Arrived 08/09/2024 10:00 AM EDT Hospital Encounter Non-Invasive [place] [address] Arrived documented as of this encounter Procedures Procedure Name Priority Date/Time Associated Diagnosis Comments [id number] Routine 03/18/2022 2:30 PM EST Fatty liver documented in this encounter Results * [id number] (03/18/2022 2:30 PM EST) Narrative Elsie Cristobal MD - 03/18/2022 2:30 PM EST Elsie Cristobal MD ? 03/18/2022 ??8:34 PM [facility] Liver Fibrosis Assessment Report Indication: ??Fatty liver Performed by: ??Elsie Cristobal MD Procedure: Vibration Controlled Transient Elastography (VCTE) or Fibroscan [place] Protocol: Patient's identity, procedure and site were [...] disease documented in this encounter Care Teams Sales Support Consultant Relationship Specialty Start Date End Date Dewayne Carrington MD PCP - General 09/02/16 05/08/24 documented as of this encounter
--- OUTSIDE RECORDS SUMMARY | 2024-05-24 14:23 | XMS_ITS | Encounter Summary ---
[place] [address] Care Team Providers Care Speck Dyer Name Role Phone Dewayne Carrington MD Primary Care Provider [phone] Encounter Details Date Type Department Care Team (Late st Contact Info) Description 03/27/2023 Telephone Cardiology at [address] [phone] Halina Garcia Social History Tobacco [...] next two weeks. He was seen at [facility] ED for dizziness and it is unclear if his device was interrogated completely. With Device Nurse is ok. [facility] Records have been requested. Halina Garcia EP Scheduling documented in this encounter Plan of Treatment Upcoming Encounters Date Type Department Care Team (Late st Contact Info) Description 06/15/2024 10:00 AM EST Hospital Encounter Non-Invasive [place] [address] Arrived 08/09/2024 10:00 AM EDT Hospital Encounter Non-Invasive [place] [address] Arrived documented as of this encounter Visit Diagnoses Not on filedocumented in this encounter Care Teams Speck Dyer Relationship Specialty Start Date End Date Dewayne Carrington MD PCP - General 09/02/16 05/08/24 documented as of this encounter
--- OUTSIDE RECORDS SUMMARY | 2024-05-24 14:23 | XMS_ITS | Encounter Summary ---
Author Organization [facility] Address [facility] [place] [address] Care Team Providers Care Senior Animal Trainer Name Role Phone Dewayne Carrington MD Primary Care Provider [phone] Encounter Details Date Type Department Care Team ([facility] st Contact Info) Description 03/27/2023 [place] [phone] Maren Hernandez MD [facility] [place] [address] Social History Tobacco Use Types Packs/Day Years [...] Dino Fitzpatrick Patient Location: HPI: 72 w/ [address] Sci AICD for history of [place], Afib [...] not personally reviewed EKGs. Maren Hernandez MD Metal Mold Dresser documented in this encounter Plan of Treatment Upcoming Encounters Date Type Department Care Team (Late st Contact Info) Description 06/15/2024 10:00 AM EST Hospital Encounter [place] [address] Arrived 08/09/2024 10:00 AM EDT Hospital Encounter [place] [address] Arrived documented as of this encounter Visit Diagnoses Not on filedocumented in this encounter Care Teams Senior Animal Trainer Relationship Specialty Start Date End Date Dewayne Carrington MD PCP - General 09/02/16 05/08/24 documented as of this encounter
--- OUTSIDE RECORDS SUMMARY | 2024-05-24 14:23 | XMS_ITS | Encounter Summary ---
[place] [address] Care Team Providers Care Interior Design Faculty Member Name Role Phone Dewayne Carrington MD Primary Care Provider [phone] Encounter Details Date Type Department Care Team (Latest Contact Info) Description 12/23/2022 10:00 AM EDT - 12/23/2022 11:59 PM EDT Hospital Encounter Non-Invasive [place] [address] Discharge Disposition: Home Social History Tobacco Use [...] EST Hospital Encounter Non-[place]vasive [place] [address] Arrived 08/09/2024 10:00 AM EDT Hospital Encounter Non-[place] [address] Arrived documented as of this encounter Procedures [...] on filedocumented in this encounter Care Teams Interior Design Faculty Member Relationship Specialty Start Date End Date Dewayne Carrington MD PCP - General 09/02/16 05/08/24 documented as of this encounter
--- OUTSIDE RECORDS SUMMARY | 2024-05-24 14:23 | XMS_ITS | Encounter Summary ---
[place] [address] Care Team Providers Care Chief Scientific Officer Name Role Phone Dewayne Carrington MD Primary Care Provider [phone] Reason for Referral * Consultation (Routine) - Closed Specialty Diagnoses / Procedures Referred By Contac t Referred To Contact Neurology Diagnoses Dizziness and giddiness Dewayne Carrington MD [address] [place] [address] [place] [address] [facility] [address] [place] [phone] Referral ID Status Reason Start Date Expiration Date V isits Requested Visits Authorized [id number] Closed Second Opinion 04/07/2023 04/06/2024 1 1 Encounter Details Date Type Department Care Team (Late st Contact Info) Description 04/07/2023 Transcribe Orders eD Incoming Referrals [phone] Dewayne Carrington MD [address] [place] [address] [address] [place], [place] [id number] Dizziness and giddiness Social History Tobacco Use [...] AM EST Hospital Encounter [place] [address] Arrived 08/09/2024 10:00 AM EDT Hospital Encounter [place] [address] Arrived Scheduled Referrals Name Type Priority Associated Diagnoses Orde r Schedule Referral to Neurology Outpatient Referral Routine Dizziness and giddiness Ordered: 04/07/2023 documented as of this encounter Visit Diagnoses Diagnosis Dizziness and giddiness documented in this encounter Care Teams Chief Scientific Officer Relationship Specialty Start Date End Date Dewayne Carrington MD PCP - General 09/02/16 05/08/24 documented as of this encounter
--- OUTSIDE RECORDS SUMMARY | 2024-05-24 14:23 | XMS_ITS | Encounter Summary ---
Author Organization [facility] [place] [address] Care Team Providers Care Filter Tender Jelly Name Role Phone Dewayne Carrington MD Primary Care Provider [phone] Encounter Details Date Type Department Care Team (Late st Contact Info) Description 12/26/2021 Orders Only Cardiology at [address] [address] Social History Tobacco Use Types Packs/Day Years [...] AM EST Hospital Encounter [place] [address] Arrived 08/09/2024 10:00 AM EDT Hospital Encounter [place] [address] Arrived documented as of this encounter Procedures Procedure Name Priority Date/Time Associated Diagnosis Comments CARDIAC DEVICE CHECK - REMOTE SCHEDULED Routine 12/26/2021 12:41 AM EDT documented in this encounter Results * Cardiac device check - Remote Scheduled (12/26/2021 12:41 AM EDT) Date Time Interrogation Session IDCO Type Interrogation Session Remote Scheduled IDCO Clinic Name [facility] IDCO Battery Date Time of Measurements [...] Therapy Details Presenting EGM IDCO Episode Identifier [id number] IDCO Episode Date Time IDCO Episode Type Category Other IDCO Episode Vendor Type Category XANDER IDCO Episode Detection Interval Ventricular 1,034 ms IDCO Episode Duration 46 s IDCO Episode Detection And Therapy Details IDCO Episode Identifier [id number] IDCO Episode Date Time IDCO Episode Type Category Other IDCO Episode Vendor Type Category XANDER IDCO Episode Detection Interval Ventricular 1,034 ms IDCO Episode Duration 50 s IDCO Episode Detection And Therapy Details IDCO Episode Identifier [id number] IDCO Episode Date Time IDCO Episode Type Category Other IDCO Episode Vendor Type Category XANDER IDCO Episode Detection Interval Ventricular 822 ms IDCO Episode Duration 50 s IDCO Episode Detection And Therapy Details IDCO Episode Identifier [id number] IDCO Episode Date Time IDCO Episode Type Category Other IDCO Episode Vendor Type Category XANDER IDCO Episode Detection Interval Ventricular 938 ms IDCO Episode Duration 56 s IDCO Episode Detection And Therapy Details [facility] IDCO Episode Identifier [id number] ID[facility] Episode Date Time IDCO Episode Type Category Other IDCO Episode Vendor Type Category XANDER IDCO Episode Detection Interval Ventricular 750 ms IDCO Episode Duration 43 s IDCO Episode Detection And Therapy Details ID[facility] Identifier [id number] IDCO Episode Date Time IDCO Episode Type Category Other IDCO Episode Vendor Type Category XANDER IDCO Episode Detection Interval Ventricular 822 ms IDCO Episode Duration 46 s IDCO Episode Detection And Therapy Details [facility] IDCO Episode Identifier [id number] IDCO Episode Date Time IDCO Episode Type Category Other IDCO Episode Vendor Type Category XANDER IDCO Episode Detection Interval Ventricular 923 ms IDCO Episode Duration 52 s IDCO Episode Detection And Therapy Details [facility] IDCO Episode Identifier [id number] IDCO Episode Date Time IDCO Episode Type Category Other IDCO Episode Vendor Type Category XANDER IDCO Episode Detection Interval Ventricular 923 ms IDCO Episode Duration 53 s IDCO Episode Detection And Therapy Details [facility] IDCO Episode Identifier [id number] IDCO Episode Date Time IDCO Episode Type Category Other IDCO Episode Vendor Type Category XANDER IDCO Episode Detection Interval Ventricular 923 ms IDCO Episode Duration 55 s IDCO Episode Detection And Therapy Details [facility] IDCO Episode Identifier [id number] IDCO Episode Date Time IDCO Episode Type Category Other IDCO Episode Vendor Type Category XANDER IDCO Episode Detection Interval Ventricular 923 ms IDCO Episode Duration 54 s IDCO Episode Detection And Therapy Details [facility] IDCO Episode Identifier [id number] IDCO Episode Date Time IDCO Episode Type [...] E162 IDCO Implantable Pulse Generator Serial Number [id number] IDCO Implantable Pulse Generator Adult Crossing Guard [employer] IDCO Implantable Pulse Generator Implant Date 20140110 IDCO Implantable Lead Model 4136 IDCO Implantable Lead Serial Number [id number] IDCO Implantable Lead Adult Crossing Guard Guidant IDCO Implantable Lead Implant Date 20130421 IDCO Implantable Lead Polarity Type Bipolar Lead IDCO Implantable Lead Location Right Atrium IDCO Implantable Lead Model 0292 IDCO Implantable Lead Serial Number [id number] IDCO Implantable Lead Adult Crossing Guard [employer] IDCO Implantable Lead Implant Date IDCO [...] Lead Channel Pacing Threshold Measurement Method Street Sweeper Operator Manual IDCO Lead Channel Pacing Threshold Polarity Bipolar IDCO Lead Channel Impedance Value 729 ohms IDCO Lead Channel Impedance Polarity Bipolar IDCO Lead Channel Measurements Date and Time Start [id number] IDCO Lead Channel Measurements Date and Time End [id number] IDCO Lead Channel Sensing Intrinsic Amplitude Mean 10.2 mV IDCO Lead Channel Sensing Polarity Bipolar IDCO Lead Channel Pacing Threshold Amplitude 0.8 V IDCO Lead Channel Pacing Threshold Pulse Width 0.5 ms IDCO Lead Channel Pacing Threshold Measurement Method Street Sweeper Operator Manual IDCO Lead Channel Pacing Threshold [...] filedocumented in this encounter Care Teams Filter Tender Jelly Relationship Specialty Start Date End Date Dewayne Carrington MD PCP - General 09/02/16 05/08/24 documented as of this encounter
--- OUTSIDE RECORDS SUMMARY | 2024-05-24 14:23 | XMS_ITS | Encounter Summary ---
Author Organization [facility] [place] [address] Care Team Providers Care Per Diem Physical Therapist Assistant Name Role Phone Dewayne Carrington MD Primary Care Provider [phone] Encounter Details Date Type Department Care Team (Late st Contact Info) Description 03/27/2022 Orders Only Cardiology at [address] [phone] Fantasma Matos MD [facility] [place] [address] Social History Tobacco Use Types Packs/Day Years [...] AM EST Hospital Encounter [place] [address] Arrived 08/09/2024 10:00 AM EDT Hospital Encounter [place] [address] Arrived documented as of this encounter Procedures [...] on filedocumented in this encounter Care Teams Per Diem Physical Therapist Assistant Relationship Specialty Start Date End Date Dewayne Carrington MD PCP - General 09/02/16 05/08/24 documented as of this encounter
--- OUTSIDE RECORDS SUMMARY | 2024-05-24 14:23 | XMS_ITS | Encounter Summary ---
Author Organization [facility] Address [facility] [place] [address] Care Team Providers Care Hardening Machine Operator Helper Name Role Phone Ralph Bright Primary Care Provider + Encounter Details Date Type Department Care Team (Late st Contact Info) Description 05/09/2024 External Results Transfer Center [facility] [place] [phone] Social History Tobacco Use Types Packs/Day Years Used Date Smoking Tobacco: Every Day e-Cigarettes Smokeless Tobacco: Never Comments:using e cigarettes Alcohol Use Standard Drinks/Week Comments No 0 (1 standard drink = 0.6 oz pur e alcohol) [facility] Utilities Answer Date Recorded In the past 12 months has th e electric, gas, oil, or water company threatened [...] any time in the past 12 [facility], were you homeless or living in a usp (including now)? No 05/10/2024 DH IPV Inpatient [...] AM EST Hospital Encounter [place] [address] Arrived 08/09/2024 10:00 AM EDT Hospital Encounter [place] [address] Arrived documented as of this encounter Procedures Procedure Name Priority Date/Time Associated Diagnosis Comments MISC EXTERNAL CARDIOLOGY RESULT Routine 05/09/2024 5:52 PM EST documented in this encounter Results * External Cardiology Result (05/09/2024 5:52 PM EST) Anatomical Region Laterality Modality Other Historical Provider EXTERNAL CARDIOLO GY RESULT documented in this encounter Visit Diagnoses Not on filedocumented in this encounter Care Teams Hardening Machine Operator Helper Relationship Specialty Start Date End Date Ralph Bright [place] [address] [place] [address] PCP - General Internal Medicine 05/09/24 documented as of this encounter
--- OUTSIDE RECORDS SUMMARY | 2024-05-24 14:23 | XMS_ITS | Encounter Summary ---
[place] [address] Care Team Providers Care Catering Sales Manager Name Role Phone Dewayne Carrington MD Primary Care Provider [phone] Encounter Details Date Type Department Care Team (Latest Contact Info) Description 03/23/2023 10:00 AM EST - 03/23/2023 11:59 PM EST Hospital Encounter Non-Invasive [place] [address] Discharge Disposition: Home Social History Tobacco Use [...] AM EST Hospital Encounter Non-Invasive [place] [address] Arrived 08/09/2024 10:00 AM EDT Hospital Encounter Non-Invasive [place] [address] Arrived documented as of this encounter Procedures [...] filedocumented in this encounter Care Teams Catering Sales Manager Relationship Specialty Start Date End Date Dewayne Carrington MD PCP - General 09/02/16 05/08/24 documented as of this encounter
--- OUTSIDE RECORDS SUMMARY | 2024-05-24 14:23 | XMS_ITS | Encounter Summary ---
Author Organization [facility] [place] [address] Care Team Providers Care Research Study Assistant Name Role Phone Dewayne Carrington MD Primary Care Provider [phone] Reason for Visit * Reason Comments Medication Refill Encounter Details Date Type Department Care Team (Late st Contact Info) Description 12/09/2021 Refill Cardiology at [address] [phone] Fantasma Matos MD [facility] [address] [place] [address] Medication Refill Social History Tobacco Use Types [...] AM EST Hospital Encounter Non-Invasive [place] [phone] Arrived 08/09/2024 10:00 AM EDT Hospital Encounter Non-Invasive [place] [address] Arrived documented as of this encounter Visit Diagnoses Not on filedocumented in this encounter Care Teams Research Study Assistant Relationship Specialty Start Date End Date Dewayne Carrington MD PCP - General 09/02/16 05/08/24 documented as of this encounter
--- OUTSIDE RECORDS SUMMARY | 2024-05-24 14:24 | XMS_ITS | Encounter Summary ---
Author Organization [facility] [place] [address] Care Team Providers Care Cleaning Laborer Name Role Phone Dewayne Carrington MD Primary Care Provider [phone] Encounter Details Date Type Department Care Team (Late st Contact Info) Description 09/26/2021 Orders Only Cardiology at [address] [address] Social History Tobacco Use Types Packs/Day Years [...] AM EST Hospital Encounter Non-Invasive [place] [address] Arrived 08/09/2024 10:00 AM EDT Hospital Encounter Non-Invasive [place] [address] Arrived documented as of this encounter Procedures [...] Therapy Details Presenting EGM IDCO Episode Identifier [id number] IDCO Episode Date Time IDCO Episode Type Category Other IDCO Episode Vendor Type Category XANDER IDCO Episode Detection Interval Ventricular 1,000 ms IDCO Episode Duration 47 s IDCO Episode Detection And Therapy Details IDCO Episode Identifier [id number] IDCO Episode Date Time IDCO Episode Type Category Other IDCO Episode Vendor Type Category XANDER IDCO Episode Detection Interval Ventricular 1,053 ms IDCO Episode Duration 48 s IDCO Episode Detection And Therapy Details IDCO Episode Identifier [id number] IDCO Episode Date Time IDCO Episode Type Category Other IDCO Episode Vendor Type Category XANDER IDCO Episode Detection Interval Ventricular 845 ms IDCO Episode Duration 45 s IDCO Episode Detection And Therapy Details IDCO Episode Identifier [id number] IDCO Episode Date Time IDCO Episode Type Category Other IDCO Episode Vendor Type Category XANDER IDCO Episode Detection Interval Ventricular 1,017 ms IDCO Episode Duration 50 s IDCO Episode Detection And Therapy Details IDCO Episode Identifier [id number] IDCO Episode Date Time IDCO Episode Type Category Other IDCO Episode Vendor Type Category XANDER IDCO Episode Detection Interval Ventricular 811 ms IDCO Episode Duration 43 s IDCO Episode Detection And Therapy Details IDCO Episode Identifier [id number] IDCO Episode Date Time IDCO Episode Type Category Other IDCO Episode Vendor Type Category XANDER IDCO Episode Detection Interval Ventricular 822 ms IDCO Episode Duration 45 s IDCO Episode Detection And Therapy Details IDCO Episode Identifier [id number] IDCO Episode Date Time IDCO Episode Type Category Other IDCO Episode Vendor Type Category XANDER IDCO Episode Detection Interval Ventricular 896 ms IDCO Episode Duration 47 s IDCO Episode Detection And Therapy Details IDCO Episode Identifier [id number] IDCO Episode Date Time IDCO Episode Type Category Other IDCO Episode Vendor Type Category XANDER IDCO Episode Detection Interval Ventricular 811 ms IDCO Episode Duration 47 s IDCO Episode Detection And Therapy Details IDCO Episode Identifier [id number] IDCO Episode Date Time IDCO Episode Type Category Other IDCO Episode Vendor Type Category XANDER IDCO Episode Detection Interval Ventricular 882 ms IDCO Episode Duration 47 s IDCO Episode Detection And Therapy Details IDCO Episode Identifier [id number] IDCO Episode Date Time IDCO Episode Type [...] Maximum Sensor Rate 130 {beats}/ min IDCO Ablaro Setting CORINE Delay High 65 ms IDCO [...] E162 IDCO Implantable Pulse Generator Serial Number [id number] IDCO Implantable Pulse Generator Inspector Precision Assembly [place] [employer] IDCO Implantable Pulse Generator Implant Date 20140110 IDCO Implantable Lead Model 4136 IDCO Implantable Lead Serial Number [id number] IDCO Implantable Lead Inspector Precision Assembly Guidant IDCO Implantable Lead Implant Date 20130421 IDCO Implantable Lead Polarity Type Bipolar Lead IDCO Implantable Lead Location Right Atrium IDCO Implantable Lead Model 0292 IDCO Implantable Lead Serial Number [id number] IDCO Implantable Lead Inspector Precision Assembly [place] [employer] IDCO Implantable Lead Implant Date IDCO [...] IDCO Lead Channel Pacing Threshold Measurement Method Front Facer Manual IDCO Lead Channel Pacing Threshold Polarity [...] IDCO Lead Channel Pacing Threshold Measurement Method Front Facer Manual IDCO Lead Channel Pacing Threshold Polarity [...] on filedocumented in this encounter Care Teams Cleaning Laborer Relationship Specialty Start Date End Date Dewayne Carrington MD PCP - General 09/02/16 05/08/24 documented as of this encounter
--- OUTSIDE RECORDS SUMMARY | 2024-05-24 14:24 | XMS_ITS | Encounter Summary ---
Author Organization [facility] Address [facility] [place] [address] Care Team Providers Care Expanded Function Dental Assistant Name Role Phone Dewayne Carrington MD Primary Care Provider [phone] Encounter Details Date Type Department Care Team (Latest Contact Info) Description 12/27/2020 3:04 PM EDT - 12/27/2020 11:59 PM EDT Hospital Encounter Non-[place] [address] Shaheen Molina MD [facility] [place] [address] V-tach Discharge Disposition: Home Social History Tobacco [...] AM EST Hospital Encounter [place] [address] Arrived 08/09/2024 10:00 AM EDT Hospital Encounter Non[place] [address] Arrived documented as of this encounter Procedures [...] tachycardia documented in this encounter Care Teams Expanded Function Dental Assistant Relationship Specialty Start Date End Date Dewayne Carrington MD PCP - General 09/02/16 05/08/24 documented as of this encounter
--- OUTSIDE RECORDS SUMMARY | 2024-05-24 14:24 | XMS_ITS | Encounter Summary ---
Author [facility] [address] Care Team Providers Care Financial Underwriter Name Role Phone Dewayne Carrington MD Primary Care Provider [phone] Encounter Details Date Type Department Care Team (Late st Contact Info) Description 03/28/2021 Orders Only Cardiology at [address] [address] Social History Tobacco Use Types Packs/Day Years [...] AM EST Hospital Encounter Non-Invasive [place] [address] Arrived 08/09/2024 10:00 AM EDT Hospital Encounter Non-Invasive [place] [address] Arrived documented as of this encounter Procedures Procedure Name Priority Date/Time Associated Diagnosis Comments CARDIAC DEVICE CHECK - REMOTE SCHEDULED Routine 03/28/2021 11:18 AM EST documented in this encounter Results * Cardiac device check - Remote Scheduled (03/28/2021 11:18 AM EST) Date Time Interrogation Session IDCO Type Interrogation Session Remote Scheduled IDCO [facility] Name [facility] IDCO Battery Date [...] Therapy Details Presenting EGM [id number] ID[facility] Episode Date Time IDCO Episode Type Category Other IDCO Episode Vendor Type Category XANDER IDCO Episode Detection Interval Ventricular 1,154 ms IDCO Episode Duration 53 s IDCO Episode Detection And Therapy Details IDCO Episode Identifier [id number] IDCO Episode Date Time IDCO Episode Type Category Other IDCO Episode Vendor Type Category XANDER IDCO Episode Detection Interval Ventricular 984 ms IDCO Episode Duration 174 s IDCO Episode Detection And Therapy Details IDCO Episode Identifier [id number] IDCO Episode Date Time IDCO Episode Type Category Other IDCO Episode Vendor Type Category XANDER IDCO Episode Detection Interval Ventricular 1,000 ms IDCO Episode Duration 60 s IDCO Episode Detection And Therapy Details [facility] IDCO Episode Identifier [id number] IDCO Episode Date Time IDCO Episode Type Category Other IDCO Episode Vendor Type Category XANDER IDCO Episode Detection Interval Ventricular 984 ms IDCO Episode Duration 58 s IDCO Episode Detection And Therapy Details IDCO Episode Identifier [id number] IDCO Episode Date Time IDCO Episode Type Category Other IDCO Episode Vendor Type Category XANDER IDCO Episode Detection Interval Ventricular 984 ms IDCO Episode Duration 59 s IDCO Episode Detection And Therapy Details IDCO Episode Identifier [facility]- IDCO Episode Date Time IDCO Episode Type Category Other IDCO Episode Vendor Type Category XANDER IDCO Episode Detection Interval Ventricular 984 ms IDCO Episode Duration 59 s IDCO Episode Detection And Therapy Details IDCO Episode Identifier [facility]-[id number] IDCO Episode Date Time IDCO Episode Type Category Other IDCO Episode Vendor Type Category XANDER IDCO Episode Detection Interval Ventricular 1,053 ms IDCO Episode Duration 63 s IDCO Episode Detection And Therapy Details IDCO Episode Identifier [id number] IDCO Episode Date Time IDCO Episode Type [...] E162 IDCO Implantable Pulse Generator Serial Number [id number] IDCO Implantable Pulse Generator Ophthalmologist [place] [employer] IDCO Implantable Pulse Generator Implant Date 20140110 IDCO Implantable Lead Model 4136 IDCO Implantable Lead Serial Number [id number] IDCO Implantable Lead Ophthalmologist Guidant IDCO Implantable Lead Implant Date 20130421 IDCO Implantable Lead Polarity Type Bipolar Lead IDCO Implantable Lead Location Right Atrium IDCO Implantable Lead Model 0292 IDCO Implantable Lead Serial Number [id number] IDCO Implantable Lead Ophthalmologist [place] [employer] IDCO Implantable Lead Implant Date IDCO [...] IDCO Lead Channel Pacing Threshold Measurement Method Mica Washer Gluer Manual IDCO Lead Channel Pacing Threshold [...] IDCO Lead Channel Pacing Threshold Measurement Method Mica Washer Gluer Manual IDCO Lead Channel Pacing Threshold [...] filedocumented in this encounter Care Teams Financial Underwriter Relationship Specialty Start Date End Date Dewayne Carrington MD PCP - General 09/02/16 05/08/24 documented as of this encounter
--- OUTSIDE RECORDS SUMMARY | 2024-05-24 14:24 | XMS_ITS | Encounter Summary ---
Author Organization [facility] Address [facility] [place] [address] Care Team Providers Care Security Engineer Name Role Phone Dewayne Carrington MD Primary Care Provider [phone] Encounter Details Date Type Department Care Team (Late st Contact Info) Description 12/28/2020 Notes Only Cardiology at [address] [phone] Shaheen Molina MD [facility] [address] [place] [address] Social History Tobacco Use Types Packs/Day Years [...] preserved LVEF, RCA and LAD disease. 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 VT at 150 bpm, appears to be coming from cardiac crux. No significant femoral arterial disease or aortic stenosis. Shaheen Molina MD [facility] Cardiac Electrophysiology 12/28/2020 4:06 PM documented in this encounter Plan of Treatment Upcoming Encounters Date Type Department Care Team (Late st Contact Info) Description 06/15/2024 10:00 AM EST Hospital Encounter [place] [address] Arrived 08/09/2024 10:00 AM EDT Hospital Encounter [place] [address] Arrived documented as of this encounter Visit Diagnoses Not on filedocumented in this encounter Care Teams Security Engineer Relationship Specialty Start Date End Date Dewayne Carrington MD PCP - General 09/02/16 05/08/24 documented as of this encounter
--- OUTSIDE RECORDS SUMMARY | 2024-05-24 14:24 | XMS_ITS | Encounter Summary ---
Author Organization Formerly [facility], [facility] Address [facility] [place] [address] Care Team Providers Care Consultant Electronics Name Role Phone Dewayne Carrington MD Primary Care Provider [phone] Reason for Visit * Consultation (Routine) - Specialty Diagnoses / Procedures Referred By Contac t Referred To Contact Gastroenterology Diagnoses Fatty (change of) liver, not elsewhere classified fatty liver- Dewayne Carrington MD [address] [place] [address] [facility] [address] [place] [address] Referral ID Status Reason Start Date Expiration Date V isits Requested Visits Authorized [id number] Consult, Test & Treat Connection [facility] PCP Updated and/or Approved 09/03/2020 03/02/2021 6 6 Encounter Details Date Type Department Care Team (Late st Contact Info) Description 03/19/2021 2:30 PM EST Office [place] [address] [facility] [place] [address] Abnormal liver function test; Fatty [...] not included. 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 Gann PA V: [phone] Copy: Dewayne Carrington MD [facility] [address] documented in this encounter Procedure Notes * Elsie Cristobal MD - 03/19/2021 2:30 PM ESTAssociated Order(s): FIBROSCAN Procedure(s): FIBROSCAN Pre-Procedure Diagnose(s): Abnormal liver function test; Fatty liver [facility] Liver Fibrosis Assessment Report Indication: Fatty liver Performed by: Elsie Cristobal MD Procedure: Vibration Controlled Transient Elastography (VCTE) or Fibroscan Cannon Protocol: Patient's identity, procedure and site were [...] AM EST Hospital Encounter [place] [address] Arrived 08/09/2024 10:00 AM EDT Hospital Encounter [place] [address] Arrived documented as of this encounter Procedures [...] 3:50 PM EST Abnormal liver function test [id number] Routine 03/19/2021 3 :50 PM EST Abnormal liver function test [facility] SMOOTH MUSCLE AB, SERUM Routine 03/19/2021 3:50 PM EST Abnormal liver function test HC CBC,PLT & AUTO DIFF Routine 3:50 PM EST Abnormal liver function test [facility] ANATITRE (ANDPATTERN) Routine 03/19/2021 3:50 PM EST Abnormal liver function test COMPREHENSIVE METABOLIC PANEL Routine 03/19/2021 3:50 PM EST Abnormal liver function test [id number] Routine 03/19/2021 2:30 PM EST Abnormal liver function test Fatty liver documented in this encounter Results * (ABNORMAL) Differential, Automated (03/19/2021 3:50 PM EST) Neutrophil % 61.4 % [facility] Neutrophil Absolute 4.80 1.70 - 6.10 x10(3)/mc L [facility] Lymph % 25.7 % [facility] Lymphocytes Abs 2.0 0.9 - 3.2 x10(3)/ L [facility] Monocyte % 6.3 % [facility] Monocyte Abs 0.5 0.3 - 0.9 x10(3)/[facility] Eos % 5.4 % [facility] Eosinophils Abs 0.4 0.0 - 0.4 x10(3)/[facility] Basophil % 0.6 % [facility] Baso Absolute 0.0 0.0 - 0.1 x10(3)/ L [facility] Immature Gran % 0.60 % [facility] Comment: Immature granulocytes(IG's)percentage and absolute count will include metamyelocytes, myelocytes, and promyelocytes. Blood smears from CBCs yielding IG's will be scanned manually for concordance. If this scan disagrees with the automated IG or if promyelocytes are noted, a manual differential will be performed. Immature Gran Absolute 0.05(H) 0.00 - 0.04 x10(3)/ L [facility] Blood 03/19/2021 3:50 PM EST 03/19/2021 4:21 PM EST Narrative Resulting Agency Comment Spec In Lab Elsie Cristobal MD HEMATOLOGY ORDERABLE S [facility] [place] [address] * (ABNORMAL) Hemogram (03/19/2021 3:50 PM EST) [facility] White Blood Cell 7.8 4.0 - 9.5 x10(3)/ L [facility] Red Blood Cell 4.89 4.58 - 5.54 x10(6)/[facility] Hemoglobin 15.1 13.7 - 16.5 g/dL [facility] Hematocrit 44.6 40.5 - 48.5 % [facility] Mean Cell Volume 91.2 82.9 - 93.1 fL [facility] Mean Cell Hemoglobin 30.9 27.5 - 32.1 pg [facility] Mean Cell Hemoglobin Concentration 33.9 32.0 - 35.7 g/dL [facility] Platelet 228 145 - 357 x10(3)/[facility] RDW Standard Deviation 49.3(H) 36.0 - 45.0 [facility] RDW coefficient of variation 14.7(H) 11.4 - 13.8 % [facility] Mean Platelet Volume 9.0 7.6 - 12.9 [facility] NRBC% auto 0.0 % [facility] NRBC Absolute 0.000 0.000 - 0.000 x10(3)/[facility] Blood 03/19/2021 3:50 PM EST 03/19/2021 4:21 PM EST Narrative Resulting Agency Comment Spec In Lab Elsie Cristobal MD HEMATOLOGY ORDERABLE S [facility] [place] [address] * A1AT Genotype (03/19/2021 3:50 PM EST) [facility] A1AT Genotype A1AT (SERPINA1) GENOTYPING RESULTS: S [...] in the ? S? phenotype ([id number]:c.863 A>T; [id number]) and the ? Z? phenotype (c. 1096G>A; [id number]) are amplified and genotyped by two separate [...] [facility] (CGAT) Laboratory at [facility]. It has not been cleared or approved by the FDA. The laboratory is regulated under CLIA as qualified to perform high-complexity testing. This test is used for clinical purposes. It should not be regarded as investigational or for research. [facility] Comment: [VERIFIED DATE]03.27.21 Verified By:Nabila Ph.D., [facility], Faye A Clinical Busboy/Clip And Hanger Attacher (Electronic Signature) Blood 03/19/2021 3:50 PM EST 03/20/2021 7:43 AM EST Narrative Resulting Agency Comment Spec In Lab Elsie Cristobal MD CHEMISTRY ORDERABLES [facility] [place] [address] * A1AT Serum Concentration (03/19/2021 3:50 PM EST) [facility] A1AT 148 90 - 200 mg/dL [facility] Blood 03/19/2021 3:50 PM EST 03/19/2021 4:21 PM EST Narrative Resulting Agency Comment Spec In Lab Elsie Cristobal MD CHEMISTRY ORDERABLES Performing Organization Address [facility] Co de Phone Number [facility] [place] [address] * Smooth Muscle Antibody (03/19/2021 3:50 PM EST) [facility] Sm Muscle Ab (MAY) Negative Negative M [facility] Comment: Negative: No further testing will be performed ADDITIONAL INFORMATION This test was developed and its performance characteristics determined by [facility] in a manner consistent with CLIA requirements. This test has not been cleared or approved by the U.S. Food and Drug Administration. Test Performed by: [facility] [place] [address] Tie Bucker: Iggy Garcia M.D. Ph.D.; CLIA# [id number] Blood 03/19/2021 3:50 PM EST 03/20/2021 9:19 AM EST Narrative Resulting Agency Comment Spec In Lab Elsie Cristobal MD LAB SEND OUT ORDERAB LES Performing Organization Address [facility]/ZIP Co de Phone Number [facility] [place] [address] * (ABNORMAL) SONAL (03/19/2021 3:50 PM EST) [facility] SONAL Ab Screen Test ?Result ? Flag ??Unit ??RefValue Antinuclear Ab, HEp-2 Substrate, ?Positive 1:320 ??@ ?<1:80 (Negative) ??S ? ADDITIONAL INFORMATION --------- ?Method: Immunofluorescence using HEp-2 cellular substrate. ??SONAL Titer: ?1:320 ??SONAL Pattern: ?Homogeneous ?Test Performed by: ?[facility] ?[address] [place] [address] ?Tie Bucker: Iggy Garcia M.D. Ph.D.; CLIA# [id number] ([id number]) [facility] Blood 03/19/2021 3:50 PM EST 03/20/2021 9:19 AM EST Narrative Resulting Agency Comment Spec In Lab Elsie Cristobal MD LAB SEND OUT ORDERAB LES [facility] [place] [address] * (ABNORMAL) Comprehensive metabolic panel (non-fasting) (03/19/2021 3:50 PM EST) Glucose 143 65 - 199 mg/dL [facility] Comment:Diabetes: >=200 mg/d L plus symptoms Blood Urea Nitrogen 20 10 - 20 mg/dL [facility] Creatinine 0.99 0.80 - 1.50 mg/dL [facility] Sodium 141 135 - 145 mmol/L [facility] Potassium 4.6 3.5 - 5.0 mmol/L [facility] Comment: Please note: ??Patients with WBC >100,000 may have falsely elevated Potassium levels. ??For accurate Potassium quantification in these patients send serum separator tube (gold top) for subsequent determinations. ??Contact the Clinical Chemistry Laboratory if there are any questions. Chloride 102 98 - 107 mmol/L [facility] Carbon Dioxide 25 22 - 31 mmol/L [facility] Anion Gap 14 5 - 15 mmol/L [facility] Calcium 9.9 8.5 - 10.5 mg/dL [facility] Protein, Total 7.6 6.1 - 8.0 g/dL [facility] Albumin 4.7 3.2 - 5.2 g/dL [facility] Aspartate Aminotransferase 116(H) 0 - 39 unit/L [facility] Alanine Aminotransferase 124(H) 0 - 55 unit/L [facility] Alkaline Phosphatase 77 40 - 130 unit/L [facility] Bilirubin, Total 0.6 0.2 - 1.3 mg/dL [facility] Est Glomerular Filtration Rate 76 >=60 mL/min/1. 73 m?? [facility] [...] Cristobal MD CHEMISTRY ORDERABLES Performing Organization Address [facility] Co de Phone Number [facility] [place] [address] * Hepatitis C Antibody (03/19/2021 3:50 PM EST) Hepatitis C Antibody Negative Negative [facility] Blood 03/19/2021 3:50 PM EST 03/19/2021 4:21 PM EST Narrative Resulting Agency Comment Spec In Lab Elsie Cristobal MD CHEMISTRY ORDERABLES Performing Organization Address [facility] de Phone Number [facility] [place] [address] * [id number] (03/19/2021 2:30 PM EST) Narrative Elsie Cristobal MD - 03/19/2021 2:30 PM EST Elsie Cristobal MD ? 03/19/2021 ??8:41 PM [facility] Liver Fibrosis Assessment Report Indication: ??Fatty liver Performed by: ??Elsie Cristobal MD Procedure: Vibration Controlled Transient Elastography (VCTE) or Fibroscan Cannon Protocol: Patient's identity, procedure and site were [...] disease documented in this encounter Care Teams Consultant Electronics Relationship Specialty Start Date End Date Dewayne Carrington MD PCP - General 09/02/16 05/08/24 documented as of this encounter
--- OUTSIDE RECORDS SUMMARY | 2024-05-24 14:24 | XMS_ITS | Encounter Summary ---
Author Organization [facility] [place] [address] Care Team Providers Care Suture Winder Hand Name Role Phone Dewayne Carrington MD Primary Care Provider [phone] Encounter Details Date Type Department Care Team (Late st Contact Info) Description 11/20/2021 Orders Only Cardiology at [address] [address] Social History Tobacco Use Types Packs/Day Years [...] Hospital Encounter Non-[place] [address] Arrived 08/09/2024 10:00 AM EDT Hospital Encounter Non-[place]vasive [place] [address] Arrived documented as of this encounter Procedures Procedure Name Priority Date/Time Associated Diagnosis Comments CARDIAC DEVICE CHECK - REMOTE Routine 11/20/2021 9:51 AM EDT documented in this encounter Results * Cardiac Device Check - Remote (11/20/2021 9:51 AM EDT) Date Time Interrogation Session IDCO Type Interrogation Session Remote IDCO Clinic Name [facility] Shirin [facility] IDCO Battery [...] Capacitor Charge Type Shock IDCO Episode Identifier [id number] IDCO Episode Date Time IDCO Episode Type Category Other IDCO Episode Vendor Type Category XANDER IDCO Episode Detection Interval Ventricular 1,000 ms IDCO Episode Duration 60 s IDCO Episode Detection And Therapy Details IDCO Episode Identifier [id number] IDCO Episode Date Time IDCO Episode Type Category Other IDCO Episode Vendor Type Category XANDER IDCO Episode Detection Interval Ventricular 1,364 ms IDCO Episode Duration 64 s IDCO Episode Detection And Therapy Details IDCO Episode Identifier [id number] IDCO Episode Date Time IDCO Episode Type Category Other IDCO Episode Vendor Type Category XANDER IDCO Episode Detection Interval Ventricular 923 ms IDCO Episode Duration 96 s IDCO Episode Detection And Therapy Details IDCO Episode Identifier [id number] IDCO Episode Date Time IDCO Episode Type Category Other IDCO Episode Vendor Type Category XANDER IDCO Episode Detection Interval Ventricular 1,000 ms IDCO Episode Duration 101 s IDCO Episode Detection And Therapy Details IDCO Episode Identifier [id number] IDCO Episode Date Time IDCO Episode Type Category Other IDCO Episode Vendor Type Category XANDER IDCO Episode Detection Interval Ventricular 1,034 ms IDCO Episode Duration 55 s IDCO Episode Detection And Therapy Details IDCO Episode Identifier [id number] IDCO Episode Date Time IDCO Episode Type Category Other IDCO Episode Vendor Type Category XANDER IDCO Episode Detection Interval Ventricular 1,053 ms IDCO Episode Duration 55 s IDCO Episode Detection And Therapy Details Q ID[facility] Episode [id number] IDCO Episode Date Time IDCO Episode Type Category Other IDCO Episode Vendor Type Category XANDER IDCO Episode Detection Interval Ventricular 1,017 ms IDCO Episode Duration 56 s IDCO Episode Detection And Therapy Details Q IDCO Episode Identifier [id number] IDCO Episode Date Time IDCO Episode Type Category Other IDCO Episode Vendor Type Category XANDER IDCO Episode Detection Interval Ventricular 968 ms IDCO Episode Duration 56 s IDCO Episode Detection And Therapy Details IDCO Episode Identifier [id number] IDCO Episode Date Time IDCO Episode Type Category Other IDCO Episode Vendor Type Category XANDER IDCO Episode Detection Interval Ventricular 1,034 ms IDCO Episode Duration 55 s IDCO Episode Detection And Therapy Details IDCO Episode Identifier [id number] IDCO Episode Date Time IDCO Episode Type [...] E162 IDCO Implantable Pulse Generator Serial Number [id number] IDCO Implantable Pulse Generator Male Infertility Specialist [employer] IDCO Implantable Pulse Generator Implant Date 20140110 IDCO Implantable Lead Model 4136 IDCO Implantable Lead Serial Number [id number] IDCO Implantable Lead Male Infertility Specialist Guid[employer] IDCO Implantable Lead Implant Date [id number] IDCO Implantable Lead Polarity Type Bipolar Lead IDCO Implantable Lead Location Right Atrium IDCO Implantable Lead Model 0292 IDCO Implantable Lead Serial Number [id number] IDCO Implantable Lead Male Infertility Specialist [employer] IDCO Implantable Lead Implant Date IDCO [...] IDCO Lead Channel Pacing Threshold Measurement Method Toll Test Worker Manual IDCO Lead Channel Pacing Threshold [...] IDCO Lead Channel Pacing Threshold Measurement Method Toll Test Worker Manual IDCO Lead Channel Pacing Threshold [...] on filedocumented in this encounter Care Teams Suture Winder Hand Relationship Specialty Start Date End Date Dewayne Carrington MD PCP - General 09/02/16 05/08/24 documented as of this encounter
--- OUTSIDE RECORDS SUMMARY | 2024-05-24 14:24 | XMS_ITS | Encounter Summary ---
Author Organization [facility] Address [facility] [place] [address] Care Team Providers Care Patient Accounts Clerk Name Role Phone Dewayne Carrington MD Primary Care Provider [phone] Encounter Details Date Type Department Care Team (Latest Contact Info) Description 03/28/2021 12:11 PM EST - 03/28/2021 11:59 PM EST Hospital Encounter Non-[place] [address] Ta Negron MD [facility] [place] [address] Ventricular tachycardia Discharge Disposition: Home Social History [...] AM EST Hospital Encounter [place] [address] Arrived 08/09/2024 10:00 AM EDT Hospital Encounter Non-[place] [address] Arrived documented as of this encounter Procedures Procedure Name Priority Date/Time Associated Diagnosis Comments ICD INTERROGATION 3 MONTH Routine 03/28/2021 12:11 PM EST Ventricular tachycardia documented in this encounter Results * ICD INTERROGATION 3 MONTH (03/28/2021 12:11 PM EST) Anatomical Region Laterality Modality Other Narrative 03/29/2021 4:43 PM EST Cardiac Device Remote Monitoring Report Summary [employer]ango Latitude Device: ICD Model: INCEPTA Battery: Beginning [...] tachycardia documented in this encounter Care Teams Patient Accounts Clerk Relationship Specialty Start Date End Date Dewayne Carrington MD PCP - General 09/02/16 05/08/24 documented as of this encounter
--- OUTSIDE RECORDS SUMMARY | 2024-05-24 14:24 | XMS_ITS | Encounter Summary ---
Author Organization [facility] Address [facility] [place] [address] Care Team Providers Care Lining Maker Name Role Phone Dewayne Carrington MD Primary Care Provider [phone] Encounter Details Date Type Department Care Team (Latest Contact Info) Description 06/27/2021 2:16 PM EST - 06/27/2021 11:59 PM EST Hospital Encounter Non-Invasive [place] [address] Shaheen Molina MD [facility] [place] [address] V-tach Discharge Disposition: Home Social History Tobacco [...] AM EST Hospital Encounter Non-Invasive [place] [address] Arrived 08/09/2024 10:00 AM EDT Hospital Encounter Non-Invasive [place] [address] Arrived documented as of this encounter Procedures [...] tachycardia documented in this encounter Care Teams Lining Maker Relationship Specialty Start Date End Date Dewayne Carrington MD PCP - General 09/02/16 05/08/24 documented as of this encounter
--- OUTSIDE RECORDS SUMMARY | 2024-05-24 14:24 | XMS_ITS | Encounter Summary ---
Author Organization [facility] Address [facility] [place] [address] Care Team Providers Care Compliance Review Officer Name Role Phone Dewayne Carrington MD Primary Care Provider [phone] Encounter Details Date Type Department Care Team (Late st Contact Info) Description 10/22/2021 Notes Only Cardiology at [address] [address] Edy Burns PA [facility] [place] [address] Social History Tobacco Use Types Packs/Day Years [...] Electronic Device Remote Monitoring Interpretation Marquez Hendrix [id number] Transmission Date: 10/22/2021 Device Type: ICD Generator: [employer] E162 INCEPTA ICD / 248953 Battery Status: 3.5 years Charge Time: 11.7 sec Atrial Pacin% Ventricular Pacin% Alerts: Oct 21, 2021 19:16 Shock lead impedance out of range. Events/Arrhythmias noted since last reset: None Impression: Shock lead impedance is 128 ohms. Consulted with [employer] rep Js Szymanski who advised programming thealert threshold to 150 ohms. This will also reset the red alert in the device by interrogating withthe machine programmer. Will contact schedulers to bring him into the clinic. Normally functioning device Edy Burns PA-C, PhD 10/22/2021 Pager [phone] documented in this encounter Plan of Treatment Upcoming Encounters Date Type Department Care Team (Late st Contact Info) Description 06/15/2024 10:00 AM EST Hospital Encounter [place] [address] Arrived 08/09/2024 10:00 AM EDT Hospital Encounter [place] [address] Arrived documented as of this encounter Visit Diagnoses Not on filedocumented in this encounter Care Teams Compliance Review Officer Relationship Specialty Start Date End Date Dewayne Carrington MD PCP - General 09/02/16 05/08/24 documented as of this encounter
--- OUTSIDE RECORDS SUMMARY | 2024-05-24 14:24 | XMS_ITS | Encounter Summary ---
Author Organization [facility] Address [facility] [place] [address] Care Team Providers Care Hothouse Worker Name Role Phone Dewayne Carrington MD Primary Care Provider [phone] Encounter Details Date Type Department Care Team ([facility] st Contact Info) Description 12/12/2020 10:40 AM EDT Office Visit Cardiology at [address] [phone] Fantasma Matos MD [facility] [place] [address] [place] [address] Sustained VT (ventricular tachycardia); Persistent atrial fibrillation; [...] NIGHTLY (I've sent a new prescriptions to [facility]) Continue metoprolol succinate 100 mg TWICE a day I will arrange for you to follow up w/ my gustavo Molina at [facility] documented in this encounter Progress Notes * Fantasma Matos MD - 12/12/2020 10:40 AM EDT Cardiac Electrophysiology Marquez Hendrix Is a 70 yo man from [facility] with ischemic cardiomyopathy who was seen in Cardiac Electrophysiology clinic in follow-up for sustained VT. He is known to me from a cardioversion for persistent AF performed in October 2020. His [id number] is >>1 and he is appropriately anticpagulated on Xarelto. He has a dual-chamber [employer] ICD, and has had both successful and unsuccessful ATP in the past. On or around 11/28/20 he was seen at [facility] feeling suddenly poorly and was [...] LFTs. ? Fatty liver. Raising concerns re: fdc amiodarone. Patient Active Problem List Diagnosis Code [...] therapy will help maintain 2) AF / [id number] = at least 4 for age >64 [...] convenience, EP follow-up w/ Dr. Molina at [facility] where patient hasmet this provider previously. He may elect to reduce amiodarone down to 200 mg daily at his discretion. Patient indicated understanding of and agreement w/ the immediate plans as outlined above. Continued remote monitoring will be useful. Fantasma Matos MD, PhD, [facility] Cardiac Electrophysiology documented in this encounter Plan of Treatment Upcoming Encounters Date Type Department Care Team (Late st Contact Info) Description 06/15/2024 10:00 AM EST Hospital Encounter Non-[place]vasive [place] [address] Arrived 08/09/2024 10:00 AM EDT Hospital Encounter Non-[place]vasive [place] [address] Arrived documented as of this encounter Procedures [...] Stimulating Hormone 0.93 0.27 - 4.20 mcIU/mL [facility] Comment: Reference Interval (mcIU/mL): Females: ??First Trimester: 0.23-3.88 ??Second Trimester: 0.22-3.90 ??Third Trimester: 0.44-4.66 Blood 12/12/2020 12:1 2 PM EDT 12/12/2020 12:19 PM EDT Narrative Resulting Agency Comment Spec In Lab Fantasma Matos MD CHEMISTRY ORDERABLES Performing Organization Address [facility] Co de Phone Number [facility] [place] [address] * (ABNORMAL) Hepatic Function Panel (12/12/2020 12:12 PM EDT) [facility] Protein, Total 7.5 6.1 - 8.0 gm/dL [facility] Albumin 4.7 3.2 - 5.2 gm/dL [facility] Aspartate Aminotransferase 57(H) 0 - 39 unit/L [facility] Alanine Aminotransferase 57(H) 0 - 55 unit/L [facility] Alkaline Phosphatase 83 40 - 130 unit/L [facility] Bilirubin, Total 0.5 0.2 - 1.3 mg/dL [facility] Bilirubin, Direct 0.2 0.0 - 0.3 mg/dL [facility] Blood 12/12/2020 12:1 2 PM EDT 12/12/2020 12:19 PM EDT Narrative Resulting Agency Comment Spec In Lab Fantasma Matos MD CHEMISTRY ORDERABLES Performing Organization Address [facility] Co de Phone Number [facility] [place] [address] * EKG 12 Lead (12/12/2020 10:44 AM EDT) Ventricular rate 55 BPM MUSE SYSTEM Atrial Rate 55 BPM MUSE SYSTEM P-R Interval 290 ms MUSE SYSTEM QRS Duration 130 ms MUSE SYSTEM Q-T Interval 494 ms MUSE SYSTEM QTC Calculated (Bezet) 472 ms MUSE SYSTEM Calculated R [place] -67 degrees MUSE SYSTEM INTERPRETATION Atrial-paced rhythm [...] disease documented in this encounter Care Teams Hothouse Worker Relationship Specialty Start Date End Date Dewayne Carrington MD PCP - General 09/02/16 05/08/24 documented as of this encounter
--- OUTSIDE RECORDS SUMMARY | 2024-05-24 14:24 | XMS_ITS | Encounter Summary ---
Author Organization [facility] [place] [address] Care Team Providers Care Insurance Sales Agent Name Role Phone Dweayne Carrington MD Primary Care Provider [phone] Encounter Details Date Type Department Care Team (Late st Contact Info) Description 10/22/2021 Orders Only Cardiology at [address] [phone] Social History Tobacco Use Types Packs/Day Years [...] AM EST Hospital Encounter Non-Invasive [place] [address] Arrived 08/09/2024 10:00 AM EDT Hospital Encounter Non-Invasive [place] [address] Arrived documented as of this encounter Procedures Procedure Name Priority Date/Time Associated Diagnosis Comments CARDIAC DEVICE CHECK - REMOTE DEVICE INITIATED Routine 10/22/2021 12:42 AM EDT documented in this encounter Results * Cardiac device check - Remote Device Initiated (10/22/2021 12:42 AM EDT) Date Time Interrogation Session IDCO Type Interrogation Session Remote Device Initiated IDCO Clinic Name [facility] IDCO [...] Therapy Details Presenting EGM IDCO Episode Identifier [id number] IDCO Episode Date Time IDCO Episode Type Category Other IDCO Episode Vendor Type Category XANDER IDCO Episode Detection Interval Ventricular 870 ms IDCO Episode Duration 50 s IDCO Episode Detection And Therapy Details IDCO Episode Identifier [id number] IDCO Episode Date Time IDCO Episode Type Category Other IDCO Episode Vendor Type Category XANDER IDCO Episode Detection Interval Ventricular 1,364 ms IDCO Episode Duration 60 s IDCO Episode Detection And Therapy Details IDCO Episode Identifier [id number] IDCO Episode Date Time IDCO Episode Type Category Other IDCO Episode Vendor Type Category XANDER IDCO Episode Detection Interval Ventricular 1,304 ms IDCO Episode Duration 60 s IDCO Episode Detection And Therapy Details IDCO Episode Identifier [id number] IDCO Episode Date Time IDCO Episode Type Category Other IDCO Episode Vendor Type Category XANDER IDCO Episode Detection Interval Ventricular 968 ms IDCO Episode Duration 59 s IDCO Episode Detection And Therapy Details IDCO Episode Identifier [id number] IDCO Episode Date Time IDCO Episode Type Category Other IDCO Episode Vendor Type Category XANDER IDCO Episode Detection Interval Ventricular 984 ms IDCO Episode Duration 57 s IDCO Episode Detection And Therapy Details [id number] Episode Date Time IDCO Episode Type Category Other IDCO Episode Vendor Type Category XANDER IDCO Episode Detection Interval Ventricular 952 ms IDCO Episode Duration 57 s IDCO Episode Detection And Therapy Details [id number] ID[facility] Episode Date Time IDCO Episode Type Category Other IDCO Episode Vendor Type Category XANDER IDCO Episode Detection Interval Ventricular 1,053 ms IDCO Episode Duration 59 s IDCO Episode Detection And Therapy Details IDCO [id number] ID[facility] Episode Date Time IDCO Episode Type Category Other IDCO Episode Vendor Type Category XANDER IDCO Episode Detection Interval Ventricular 1,000 ms IDCO Episode Duration 58 s IDCO Episode Detection And Therapy Details [facility] Episode [id number] IDCO Episode Date Time IDCO Episode Type Category Other IDCO Episode Vendor Type Category XANDER IDCO Episode Detection Interval Ventricular 984 ms IDCO Episode Duration 176 s IDCO Episode Detection And Therapy Details [id number] Episode Date Time IDCO Episode Type [...] E162 IDCO Implantable Pulse Generator Serial Number [id number] IDCO Implantable Pulse Generator Slots Manager [place] [employer] IDCO Implantable Pulse Generator Implant Date 20140110 IDCO Implantable Lead Model 4136 IDCO Implantable Lead Serial Number [id number] IDCO Implantable Lead Slots Manager Guidant IDCO Implantable Lead Implant Date 20130421 IDCO Implantable Lead Polarity Type Bipolar Lead IDCO Implantable Lead Location Right Atrium IDCO Implantable Lead Model 0292 IDCO Implantable Lead Serial Number [id number] IDCO Implantable Lead Slots Manager [place] [employer] IDCO Implantable Lead Implant Date IDCO [...] Lead Channel Pacing Threshold Measurement Method Senior Account Manager Manual IDCO Lead Channel Pacing Threshold [...] Lead Channel Pacing Threshold Measurement Method Senior Account Manager Manual IDCO Lead Channel Pacing Threshold [...] filedocumented in this encounter Care Teams Insurance Sales Agent Relationship Specialty Start Date End Date Dewayne Carrington MD PCP - General 09/02/16 05/08/24 documented as of this encounter
--- OUTSIDE RECORDS SUMMARY | 2024-05-24 14:24 | XMS_ITS | Encounter Summary ---
Author Organization [facility] [place] [address] Care Team Providers Care Sales Attendant Name Role Phone Dewayne Carrington MD Primary Care Provider [phone] Encounter Details Date Type Department Care Team (Late st Contact Info) Description 12/27/2020 Orders Only Cardiology at [address] [address] Social History Tobacco Use Types Packs/Day Years [...] AM EST Hospital Encounter Non-[place] [address] Arrived 08/09/2024 10:00 AM EDT Hospital Encounter Non-[place] [address] Arrived documented as of this encounter Procedures [...] Therapy Details Presenting EGM IDCO Episode Identifier [id number] IDCO Episode Date Time IDCO Episode Type Category Other IDCO Episode Vendor Type Category XANDER IDCO Episode Detection Interval Ventricular 909 ms IDCO Episode Duration 53 s IDCO Episode Detection And Therapy Details IDCO Episode Identifier [id number] IDCO Episode Date Time IDCO Episode Type Category Other IDCO Episode Vendor Type Category XANDER IDCO Episode Detection Interval Ventricular 896 ms IDCO Episode Duration 53 s IDCO Episode Detection And Therapy Details IDCO Episode Identifier [id number] IDCO Episode Date Time IDCO Episode Type Category Other IDCO Episode Vendor Type Category XANDER IDCO Episode Detection Interval Ventricular 882 ms IDCO Episode Duration 51 s IDCO Episode Detection And Therapy Details IDCO Episode Identifier [id number] IDCO Episode Date Time IDCO Episode Type Category Other IDCO Episode Vendor Type Category XANDER IDCO Episode Detection Interval Ventricular 882 ms IDCO Episode Duration 50 s IDCO Episode Detection And Therapy Details IDCO Episode Identifier -[id number] IDCO Episode Date Time IDCO Episode Type Category Other IDCO Episode Vendor Type Category XANDER IDCO Episode Detection Interval Ventricular 857 ms IDCO Episode Duration 49 s IDCO Episode Detection And Therapy Details IDCO Episode Identifier [id number] IDCO Episode Date Time IDCO Episode Type Category Other IDCO Episode Vendor Type Category XANDER IDCO Episode Detection Interval Ventricular 769 ms IDCO Episode Duration 42 s IDCO Episode Detection And Therapy Details [facility] IDCO Episode Identifier [id number] IDCO Episode Date Time IDCO Episode Type Category Other IDCO Episode Vendor Type Category XANDER IDCO Episode Detection Interval Ventricular 896 ms IDCO Episode Duration 52 s IDCO Episode Detection And Therapy Details [facility] IDCO Episode Identifier [id number] IDCO Episode Date Time IDCO Episode Type Category Other IDCO Episode Vendor Type Category XANDER IDCO Episode Detection Interval Ventricular 923 ms IDCO Episode Duration 52 s IDCO Episode Detection And Therapy Details [facility] IDCO Episode Identifier [facility]-[id number] IDCO Episode Date Time IDCO Episode Type Category Other IDCO Episode Vendor Type Category XANDER IDCO Episode Detection Interval Ventricular 896 ms IDCO Episode Duration 53 s IDCO Episode Detection And Therapy Details [facility] IDCO Episode Identifier [facility]-[id number] IDCO Episode Date Time IDCO Episode Type [...] E162 IDCO Implantable Pulse Generator Serial Number [id number] IDCO Implantable Pulse Generator Elevator Installer [place] [employer] IDCO Implantable Pulse Generator Implant Date 20140110 IDCO Implantable Lead Model 4136 IDCO Implantable Lead Serial Number [id number] IDCO Implantable Lead Elevator Installer Guidant IDCO Implantable Lead Implant Date 20130421 IDCO Implantable Lead Polarity Type Bipolar Lead IDCO Implantable Lead Location Right Atrium IDCO Implantable Lead Model 0292 IDCO Implantable Lead Serial Number [id number] IDCO Implantable Lead Elevator Installer [place] [employer] IDCO Implantable Lead Implant Date IDCO [...] Channel Pacing Threshold Measurement Method Director Of Operations For Therapy Manual IDCO Lead Channel Pacing Threshold Polarity [...] Channel Pacing Threshold Measurement Method Director Of Operations For Therapy Manual IDCO Lead Channel Pacing Threshold Polarity [...] filedocumented in this encounter Care Teams Sales Attendant Relationship Specialty Start Date End Date Dewayne Carrington MD PCP - General 09/02/16 05/08/24 documented as of this encounter
--- OUTSIDE RECORDS SUMMARY | 2024-05-24 14:24 | XMS_ITS | Encounter Summary ---
Author Organization [facility] [place] [address] Care Team Providers Care Salon Coordinator Name Role Phone Dewayne Carrington MD Primary Care Provider [phone] Encounter Details Date Type Department Care Team (Late st Contact Info) Description 12/25/2020 Telephone Cardiology at [address] [phone] Yumiko Lopes Social History Tobacco Use Types [...] Email sent to Yudi Doyle RN at [facility] asking for 01/09/21 appt to be made with Dr. Molina. Yumiko Lopes EP Scheduling documented in this encounter Plan of Treatment Upcoming Encounters Date Type Department Care Team (Late st Contact Info) Description 06/15/2024 10:00 AM EST Hospital Encounter Non-[place] [address] Arrived 08/09/2024 10:00 AM EDT Hospital Encounter Non-[place] [address] Arrived documented as of this encounter Visit Diagnoses Not on filedocumented in this encounter Care Teams Salon Coordinator Relationship Specialty Start Date End Date Dewayne Carrington MD PCP - General 09/02/16 05/08/24 documented as of this encounter
--- OUTSIDE RECORDS SUMMARY | 2024-05-24 14:24 | XMS_ITS | Encounter Summary ---
Author Organization [facility] [address] Care Team Providers Care Metal Burnisher Name Role Phone Dewayne Carrington MD Primary Care Provider [phone] Encounter Details Date Type Department Care Team (Late st Contact Info) Description 06/27/2021 Orders Only Cardiology at [address] [address] Social History Tobacco Use Types Packs/Day Years [...] AM EST Hospital Encounter [place] [address] Arrived 08/09/2024 10:00 AM EDT Hospital Encounter [place] [address] Arrived documented as of this encounter Procedures [...] Therapy Details Presenting EGM [id number] ID[facility] Episode Date Time IDCO Episode Type Category Other IDCO Episode Vendor Type Category XANDER IDCO Episode Detection Interval Ventricular 909 ms IDCO Episode Duration 53 s IDCO Episode Detection And Therapy Details [facility][id number] IDCO Episode Date Time IDCO Episode Type Category Other IDCO Episode Vendor Type Category XANDER IDCO Episode Detection Interval Ventricular 923 ms IDCO Episode Duration 54 s IDCO Episode Detection And Therapy Details IDCO Episode Identifier [id number] IDCO Episode Date Time IDCO Episode Type Category Other IDCO Episode Vendor Type Category XANDER IDCO Episode Detection Interval Ventricular 923 ms IDCO Episode Duration 53 s IDCO Episode Detection And Therapy Details IDCO Episode Identifier [id number] IDCO Episode Date Time IDCO Episode Type Category Other IDCO Episode Vendor Type Category XANDER IDCO Episode Detection Interval Ventricular 923 ms IDCO Episode Duration 139 s IDCO Episode Detection And Therapy Details IDCO Episode Identifier [id number] IDCO Episode Date Time IDCO Episode Type Category Other IDCO Episode Vendor Type Category XANDER IDCO Episode Detection Interval Ventricular 938 ms IDCO Episode Duration 110 s IDCO Episode Detection And Therapy Details IDCO Episode Identifier [id number] IDCO Episode Date Time IDCO Episode Type Category Other IDCO Episode Vendor Type Category XANDER IDCO Episode Detection Interval Ventricular 938 ms IDCO Episode Duration 56 s IDCO Episode Detection And Therapy Details [facility] IDCO Episode Identifier [facility]-[id number] IDCO Episode Date Time IDCO Episode Type Category Other IDCO Episode Vendor Type Category XANDER IDCO Episode Detection Interval Ventricular 952 ms IDCO Episode Duration 58 s IDCO Episode Detection And Therapy Details [facility] IDCO Episode Identifier [facility]-[id number] IDCO Episode Date Time IDCO Episode Type Category Other IDCO Episode Vendor Type Category XANDER IDCO Episode Detection Interval Ventricular 952 ms IDCO Episode Duration 56 s IDCO Episode Detection And Therapy Details [facility] IDCO Episode Identifier [facility]-[id number] IDCO Episode Date Time IDCO Episode Type Category Other IDCO Episode Vendor Type Category XANDER IDCO Episode Detection Interval Ventricular 952 ms IDCO Episode Duration 57 s IDCO Episode Detection And Therapy Details [facility] IDCO Episode Identifier [facility]-[id number] IDCO Episode Date Time IDCO Episode Type [...] E162 IDCO Implantable Pulse Generator Serial Number [id number] IDCO Implantable Pulse Generator Bibliographic Services Specialist [place] [employer] IDCO Implantable Pulse Generator Implant Date 20140110 IDCO Implantable Lead Model 4136 IDCO Implantable Lead Serial Number [id number] IDCO Implantable Lead Bibliographic Services Specialist Guidant IDCO Implantable Lead Implant Date 20130421 IDCO Implantable Lead Polarity Type Bipolar Lead IDCO Implantable Lead Location Right Atrium IDCO Implantable Lead Model 0292 IDCO Implantable Lead Serial Number [id number] IDCO Implantable Lead Bibliographic Services Specialist [place] [employer] IDCO Implantable Lead Implant Date IDCO [...] IDCO Lead Channel Pacing Threshold Measurement Method Churn Drill Operator Manual IDCO Lead Channel Pacing Threshold [...] IDCO Lead Channel Pacing Threshold Measurement Method Churn Drill Operator Manual IDCO Lead Channel Pacing Threshold [...] on filedocumented in this encounter Care Teams Metal Burnisher Relationship Specialty Start Date End Date eDwayne Carrington MD PCP - General 09/02/16 05/08/24 documented as of this encounter
--- OUTSIDE RECORDS SUMMARY | 2024-05-24 14:24 | XMS_ITS | Encounter Summary ---
Author Organization [facility] Address [facility] [place] [address] Care Team Providers Care Hair Dresser Name Role Phone Dewayne Carrington MD Primary Care Provider [phone] Encounter Details Date Type Department Care Team (Latest Contact Info) Description 09/26/2021 - 09/26/2021 11:59 PM EDT Hospital Encounter Non-[place] [address] Irena Daly MD [facility] [place] [address] V-tach Discharge Disposition: Home Social History Tobacco [...] AM EST Hospital Encounter Non-[place] [address] Arrived 08/09/2024 10:00 AM EDT Hospital Encounter Non-[place] [address] Arrived documented as of this encounter Procedures [...] pdf document Date of transmission: 09/26/21 Device bead preparer: [facility] Device type: DC ICD Presenting rhythm: asvs AP 9% BANKING PIN ADJUSTER 0% Battery: 3.5 years Episodes: None Stable lead trends. Activity 0.5 hr/day Irena Daly MD 10/02/2021 3:16 PM Irena Daly MD IMPLANTABLE CARDIAC DEVICE documented in this encounter Visit Diagnoses Diagnosis V-tach Paroxysmal ventricular tachycardia documented in this encounter Care Teams Hair Dresser Relationship Specialty Start Date End Date Dewayne Carrington MD PCP - General 09/02/16 05/08/24 documented as of this encounter
--- OUTSIDE RECORDS SUMMARY | 2024-05-24 14:24 | XMS_ITS | Encounter Summary ---
Author Organization [facility] [place] [address] Care Team Providers Care Oyster Shucker Name Role Phone Dewayne Carrington MD Primary Care Provider [phone] Encounter Details Date Type Department Care Team (Late st Contact Info) Description 09/17/2021 Orders Only Cardiology at [address] [address] Social History Tobacco Use Types Packs/Day Years [...] AM EST Hospital Encounter Non-[place] [address] Arrived 08/09/2024 10:00 AM EDT Hospital Encounter Non-[place] [address] Arrived documented as of this encounter Procedures Procedure Name Priority Date/Time Associated Diagnosis Comments CARDIAC DEVICE CHECK - REMOTE Routine 09/17/2021 11:35 AM EDT documented in this encounter Results * Cardiac Device Check - Remote (09/17/2021 11:35 AM EDT) Date Time Interrogation Session IDCO Type Interrogation Session Remote IDCO Clinic Name [facility] IDCO Battery Date [...] Capacitor Charge Type Shock IDCO Episode Identifier [id number] IDCO Episode Date Time IDCO Episode Type Category Other IDCO Episode Vendor Type Category XANDER IDCO Episode Detection Interval Ventricular 1,071 ms IDCO Episode Duration 59 s IDCO Episode Detection And Therapy Details IDCO Episode Identifier [id number] IDCO Episode Date Time IDCO Episode Type Category Other IDCO Episode Vendor Type Category XANDER IDCO Episode Detection Interval Ventricular 909 ms IDCO Episode Duration 51 s IDCO Episode Detection And Therapy Details IDCO Episode Identifier [id number] IDCO Episode Date Time IDCO Episode Type Category Other IDCO Episode Vendor Type Category XANDER IDCO Episode Detection Interval Ventricular 923 ms IDCO Episode Duration 53 s IDCO Episode Detection And Therapy Details IDCO Episode Identifier [id number] IDCO Episode Date Time IDCO Episode Type Category Other IDCO Episode Vendor Type Category XANDER IDCO Episode Detection Interval Ventricular 1,277 ms IDCO Episode Duration 60 s IDCO Episode Detection And Therapy Details IDCO Episode Identifier [id number] IDCO Episode Date Time IDCO Episode Type Category Other IDCO Episode Vendor Type Category XANDER IDCO Episode Detection Interval Ventricular 952 ms IDCO Episode Duration 57 s IDCO Episode Detection And Therapy Details IDCO Episode Identifier [id number] IDCO Episode Date Time IDCO Episode Type Category Other IDCO Episode Vendor Type Category XANDER IDCO Episode Detection Interval Ventricular 1,000 ms IDCO Episode Duration 60 s IDCO Episode Detection And Therapy Details IDCO Episode Identifier [id number] IDCO Episode Date Time IDCO Episode Type Category Other IDCO Episode Vendor Type Category XANDER IDCO Episode Detection Interval Ventricular 1,364 ms IDCO Episode Duration 1,669 s IDCO Episode Detection And Therapy Details IDCO Episode Identifier [id number] IDCO Episode Date Time IDCO Episode Type Category Other IDCO Episode Vendor Type Category XANDER IDCO Episode Detection Interval Ventricular 938 ms IDCO Episode Duration 55 s IDCO Episode Detection And Therapy Details IDCO Episode Identifier [id number] IDCO Episode Date Time IDCO Episode Type Category Other IDCO Episode Vendor Type Category XANDER IDCO Episode Detection Interval Ventricular 1,132 ms IDCO Episode Duration 53 s IDCO Episode Detection And Therapy Details IDCO Episode Identifier [id number] IDCO Episode Date Time IDCO Episode Type [...] E162 IDCO Implantable Pulse Generator Serial Number [id number] IDCO Implantable Pulse Generator Home Teaching [employer] 7 And 8 Teacher [employer] IDCO Implantable Pulse Generator Implant Date 20140110 IDCO Implantable Lead Model 4136 IDCO Implantable Lead Serial Number [id number] IDCO Implantable Lead Home Teaching Grades 7 And 8 Teacher Guidant IDCO Implantable Lead Implant Date 20130421 IDCO Implantable Lead Polarity Type Bipolar Lead IDCO Implantable Lead Location Right Atrium IDCO Implantable Lead Model 0292 IDCO Implantable Lead Serial Number [id number] IDCO Implantable Lead Home Teaching Grades 7 And 8 Teacher [employer] IDCO Implantable Lead Implant Date IDCO [...] IDCO Lead Channel Pacing Threshold Measurement Method Dumper Central [employer]crete Mixing Plant Manual IDCO Lead Channel Pacing Threshold Polarity [...] IDCO Lead Channel Pacing Threshold Measurement Method Dumper Central [employer] Mixing Plant Manual IDCO Lead Channel Pacing Threshold Polarity [...] on filedocumented in this encounter Care Teams Oyster Shucker Relationship Specialty Start Date End Date Dewayne Carrington MD PCP - General 09/02/16 05/08/24 documented as of this encounter
--- OUTSIDE RECORDS SUMMARY | 2024-05-24 14:25 | XMS_ITS | Encounter Summary ---
Author Organization [facility] Address [facility] [place] [address] Care Team Providers Care Golf Club Head Inspector Name Role Phone Dewayne Carrington MD Primary Care Provider [phone] Encounter Details Date Type Department Care Team (Late st Contact Info) Description 11/28/2020 Telephone Cardiology at [address] [phone] Ania Rosa MD Social History Tobacco Use [...] AM EDT Spoke with Dr. Cheng at [facility], patient was admitted yesterday with symptomatic ventricular tachycardia (ECGs scanned in our system). VT rate ws 150bpm, below detection threshold for his device. Patient underwent cardioversion and amiodarone drip. Advised a transition to amiodarone 400mg BID after 24 hours of drip to continue a load and to reachout to [employer] for device reprogramming. Will require f/u in clinic with Dr. Matos. Ania Rosa MD 11/28/2020 documented in this encounter Plan of Treatment Upcoming Encounters Date Type Department Care Team (Late st Contact Info) Description 06/15/2024 10:00 AM EST Hospital Encounter [place] [address] Arrived 08/09/2024 10:00 AM EDT Hospital Encounter [place] [address] Arrived documented as of this encounter Visit Diagnoses Not on filedocumented in this encounter Care Teams Golf Club Head Inspector Relationship Specialty Start Date End Date Dewayne Carrington MD PCP - General 09/02/16 05/08/24 documented as of this encounter
--- OUTSIDE RECORDS SUMMARY | 2024-05-24 14:25 | XMS_ITS | Encounter Summary ---
Author Organization [facility] [place] [address] Care Team Providers Care Chocolate Packer Name Role Phone Dewayne Carrington MD Primary Care Provider [phone] Reason for Visit * Auth/Cert Specialty Diagnoses / Procedures Referred By Rosa t Referred To Contact Diagnoses persistent atrial fibrillation Procedures PRO CARDIOVERSION ELECTIVE ARRHYTHMIA EXTERNAL CARDIOVERSION-ELECTIVE (WRVU 2.25) Referral ID Status Reason Start Date Expiration Date Visits Re quested Visits Authorized [id number] 1 1 Encounter Details Date Type Department Care Team (Late st Contact Info) Description 10/23/2020 11:30 AM EDT - 10/23/2020 12:00 PM EDT Surgery [place] [address] [facility] [place] [address] [place] [address] CARDIOVERSION-ELECTIVE (WRVU 2) Social History Tobacco Use [...] the adhesive pads were placed, call the interior design assistant motor and controls tester at . We will schedule a follow-up appointment with the interior design assistant here, or you will be scheduled to see your local doctor soon. Any specific instructions that apply to you will be given to you prior to discharge from the hospital. If you have any questions, call the Cardiology Department at Thursday through Thursday 8:00 a.m. to 4:30 p.m. * Attachments The following attachments cannot be sent through Care Everywhere. * Cardioversion: Post-op ([facility]) documented in this encounter Medications at Time of Discharge Medication Sig Dispensed Refills Start Date End Date metoprolol succinate (TOPROL-XL) 100 mg Tablet Sustained [...] 5 minutes as needed. Reported on 09/30/2016 lamoTRIgine (LaMICtal) 100 mg Tablet Take 50 [...] Injector Inject 1.2 mg subcutaneously daily. 05/10/2024 atorvastatin (LIPITOR) 80 mg Tablet Take 80 [...] Overview Note: ?? Heart catheterization in [facility] in 2007 with placement of a stent in an unspecified vessel ?? Repeat heart catheterization in 2008 with placement of stents to both the LAD and circumflex ?? Followup heart catheterization in 2008 showing stable results in both vessels ?? Recurrent chest discomfort in a somewhat atypical pattern beginning fall ?? Nuclear stress test at [facility] in [place], [place] May 02, 2013 during which he [...] 80 (documented on ICD interrogation 07/18/14) ?? [id number] score = 3 ?? Patient initially reluctant to be anticoagulated as recommended ??? Atrial pacemaker lead displacement Overview Note: New finding at office follow up 04/10/2014 Plan lead reposition/replacement ??? ICD (implantable cardioverter-defibrillator), dual, in situ Overview Note: New Atrial electrode: [employer]ant Dextrus Model# 4126-53 cm Serial# [id number] ?? Bipolar, steroid-tipped, active-fixation IS-1 lead ?? [...] at 10 V: No Old Ventricular electrode: [employer] [place] Model# 0292 Serial# [id number] ?? Bipolar, steroid-tipped, active-fixation DF-4 lead ?? [...] Atrial electrode: [employer]ant Dextrus Model# 4136 Serial# [id number] ?? Bipolar, steroid-tipped, active-fixation IS-1 lead ?? Access: Axillary vein ?? Location Removed 04/17/2014 ?? Implanted: 01/10/2014 Pulse generator: [employer] Incepta Model# E162 Serial# [id number] ?? DDDR ICD ?? Location: Subcutaneous The [...] past medical history. Pertinent Medications: No current [facility]-ordered facility-administered medications on file. Current Outpatient Medications Ordered in [facility] Medication Sig Dispense Refill ??? lamoTRIgine (LaMICtal) [...] Attending: Fantasma Matos MD 10/23/2020 Service Pager: [phone] documented in this encounter Miscellaneous Notes * Op Note - Fantasma Matos MD - 10/23/2020 11:35 AM EDT [facility] Operative Note Patient Name: Marquez Hendrix : [id number] MR#: [id number] Case Date: 10/23/2020 Surgeon: Surgeon(s) and Role: * Fantasma Matos MD - Primary * David Garner PA-C - Store Custodian Preoperative diagnosis: persistent atrial fibrillation Postoperative diagnosis: [...] interrogation confirmed conversion. DEVICE INTERROGATION: Device type: [employer] Incepta ICD E 162 [id number] implanted 01/10/2014 Programmed: DDDR w/ mode switch [...] AM EST Hospital Encounter Non-[place] [address] Arrived 08/09/2024 10:00 AM EDT Hospital Encounter Non-[place]vasive [place] [address] Arrived documented as of this encounter Procedures Procedure Name Priority Date/Time Associated Diagnosis Comments EKG 12-LEAD STAT 10/23/2020 11:54 AM EDT PAF (paroxysmal atrial fibrillation) Cardioversion Elective Arrhythmia External (41676) 10/23/2020 11:25 AM EDT Persistent atrial fibrillation [...] (Bezet) 472 ms MUSE SYSTEM Calculated P Grass Range 49 degrees MUSE SYSTEM Calculated R Grass Range -51 degrees MUSE SYSTEM INTERPRETATION Sinus rhythm with 1st degree A-V block Left axis deviation Low voltage QRS Inferior infarct (cited on or before 23-OCT-2020) Cannot rule out Anterior infarct (cited on or before 06-NOV-2016) Abnormal ECG When compared with ECG of 23-OCT-2020 09:23, Sinus rhythm has replaced Atrial fibrillation Nonspecific T wave abnormality, improved in Lateral leads Confirmed by MD Davin, Connor ([id number]) on 10/23/2020 12:10:37 PM MUSE SYSTEM 10/23/2020 [...] of Surgery (Day of Procedure) 1119 ([facility] ider: Marii Beck RN) PRN Medication Order [...] Routine documented in this encounter Care Teams Chocolate Packer Relationship Specialty Start Date End Date Dewayne Carrington MD PCP - General 09/02/16 05/08/24 documented as of this encounter
--- OUTSIDE RECORDS SUMMARY | 2024-05-24 14:25 | XMS_ITS | Encounter Summary ---
Author [facility] [place] [place] [address] Care Team Providers Care Microfilm Camera Operator Name Role Phone Dewayne Carrington MD Primary Care Provider [phone] Encounter Details Date Type Department Care Team (Late st Contact Info) Description 09/24/2020 Orders Only Cardiology at [address] [address] Social History Tobacco Use Types Packs/Day Years [...] AM EST Hospital Encounter [place] [address] Arrived 08/09/2024 10:00 AM EDT Hospital Encounter [place] [address] Arrived documented as of this encounter Procedures [...] Charge Date Time IDCO Capacitor Charge Time 11.2 s IDCO [...] And Therapy Details ATR IDCO Episode Identifier [id number] IDCO Episode Date Time IDCO Episode Type [...] And Therapy Details NonSustV IDCO Episode Identifier [id number] IDCO Episode Date [...] Episode Identifier [id number] IDCO Episode Date Time IDCO Episode Type Category AT/AF IDCO Episode Vendor Type Category ATR IDCO Episode Detection Interval Atrial 179 ms IDCO Episode Duration 1 s IDCO Episode Detection And Therapy Details ATR IDCO Episode Identifier [id number] IDCO Episode Date Time IDCO Episode Type [...] E162 IDCO Implantable Pulse Generator Serial Number [id number] IDCO Implantable Pulse Generator Pattern Hand GogoCoin IDCO Implantable Pulse Generator Implant Date 20140110 IDCO Implantable Lead Model 4136 IDCO Implantable Lead Serial Number [id number] IDCO Implantable Lead Pattern Hand Guiddelio IDCO Implantable Lead Implant Date 20130421 IDCO Implantable Lead Polarity Type Bipolar Lead IDCO Implantable Lead Location Right Atrium IDCO Implantable Lead Model 0292 IDCO Implantable Lead Serial Number [id number] IDCO Implantable Lead Pattern Hand GogoCoin IDCO Implantable Lead Implant Date IDCO Implantable [...] IDCO Lead Channel Pacing Threshold Measurement Method Supervisor [place] Manual IDCO Lead Channel Pacing Threshold Polarity [...] IDCO Lead Channel Pacing Threshold Measurement Method Supervisor [place] Manual IDCO Lead Channel Pacing Threshold Polarity [...] on filedocumented in this encounter Care Teams Microfilm Camera Operator Relationship Specialty Start Date End Date Dewayne aCrrington MD PCP - General 09/02/16 05/08/24 documented as of this encounter
--- OUTSIDE RECORDS SUMMARY | 2024-05-24 14:25 | XMS_ITS | Encounter Summary ---
Author [facility] [place] [address] Care Team Providers Care Meter Mechanic Name Role Phone Dewayne Carrington MD Primary Care Provider [phone] Reason for Visit * Auth/Cert Specialty Diagnoses / Procedures Referred By Contac t Referred To Contact Diagnoses persistent atrial fibrillation Procedures PRO CARDIOVERSION ELECTIVE ARRHYTHMIA EXTERNAL CARDIOVERSION-ELECTIVE (WRVU 2.25) Referral ID Status Reason Start Date Expiration Date Visits Re quested Visits Authorized [id number] 1 1 Encounter Details Date Type Department Care Team (Late st Contact Info) Description 10/23/2020 11:25 AM EDT Anesthesia [place] [phone] Kyra Spear MD [facility] [place] [address] Deepthi Monique CRNA [facility] [place] [address] Anesthesia Record Procedure Summary Procedure Name Responsible [...] Type Details Placement Removal (RETIRED) Pressure Ulcer 2357; 05/10/24 (Not present upon assessment) 01/06/14 0209 by Breann Dill RN 05/10/24 2357 by Johanna Lewis RN Incision 01/10/14; chest; 12/16/21 (LDA cleanup utility RA#[id number]); 1715 (LDA cleanup utility RA#[id number]) 01/10/14 0000 by Yaron Don RN 12/16/21 1715 by Timoteo Bella Incision 04/17/14; chest; 12/16/21 (LDA cleanup utility RA#[id number]); 1715 (LDA cleanup utility RA#[id number]) 04/17/14 0000 by Cheryle Lopse RN 12/16/21 1715 by Timoteo Bella (RETIRED) Peripheral IV Line - Single Lumen 10/23/20; 1118; metacarpal vein (top of hand), right; bnhi-[id number] catheter system; Anatomical Landmarks; 22 gauge; rtrn; intradermal injection, tolerated well, appears comfortable; 10/23/20; 1245 10/23/20 1118 by Marii Beck RN 10/23/20 1245 by Kailee Garcia, RN documented in this encounter Social History [...] Procedure Summary Date: 10/23/20 Room / Location: [facility] MINOR SURGERY / [facility] MAIN OR Anesthesia Start: 1125 Anesthesia Stop: 1144 Procedure: CARDIOVERSION-ELECTIVE (WRVU 2.25) (N/A Chest) Diagnosis: Persistent atrial fibrillation (persistent atrial fibrillation) Surgeons: Fantasma Matos MD Responsible Provider: Kyra Spear MD Anesthesia Type: MAC ASA Status: 3 All Anesthesia Providers: Anesthesiologist: Kyra Spear MD DIRECTOR OF COMMUNICATIONS: Deepthi Monique CRNA Student Nurse Rheumatology Nurse: Brooke Montano Vitals Value Taken Time BP 114/69 10/23/20 1241 Temp 36 ??C (96.8 ??F) 10/23/20 1146 Pulse 63 10/23/20 1241 Resp 16 10/23/20 1241 SpO2 99 % 10/23/20 1241 Pain Level 0 10/23/20 1241 Patient Location: PACU/[facility] Level of Consciousness: Awake and Alert [...] (arteriosclerotic cardiovascular disease) ?? Heart catheterization in [facility] [...] stress test at [facility] in [place], [place] May 02, 2013 during which he developed left shoulder and arm discomfort during submaximal exercise on the treadmill and after which he was converted to a pharmacologic test; nuclear imaging showed ejection fraction of 45% with a partially reversible inferior defect ?? Cath [facility] 05/13/2013: normal left main, mild diffuse disease throughout the LAD with an 80% mid stenosis representing a restenosis lesion, mild diffuse disease in the proximal obtuse marginal branch, and mild diffuse disease throughout the right coronary artery; status post 3.0 X 12 mm JON to 80%mid-LAD lesion (in-stent restenosis) ?? Heart catheterization [facility] January 06, 2014 showing normal [...] 80 (documented on ICD interrogation 07/18/14) ?? [id number] score = 3 ?? Patient initially reluctant to be anticoagulated as recommended ??? Atrial pacemaker lead displacement New finding at office follow up 04/10/2014 Plan lead reposition/replacement ??? ICD (implantable cardioverter-defibrillator), dual, in situ New Atrial electrode: [employer]ant Dextrus Model# 4126-53 cm Serial# [id number] ?? Bipolar, steroid-tipped, active-fixation IS-1 lead ?? [...] at 10 V: No Old Ventricular electrode: [employer] Model# 0292 Serial# [id number] ?? Bipolar, steroid-tipped, active-fixation DF-4 lead ?? [...] Atrial electrode: Guidant Dextrus Model# 4136 Serial# [id number] ?? Bipolar, steroid-tipped, active-fixation IS-1 lead ?? Access: Axillary vein ?? Location Removed 04/17/2014 ?? Implanted: 01/10/2014 Pulse generator: [employer] Incepta Model# E162 Serial# [id number] ?? DDDR ICD ?? Location: Subcutaneous The [...] WITH BIOPSY performed by KYRA VYAS at [facility] ENDOSCOPY Social History Tobacco Use ??? [...] I will be working with either a DIRECTOR OF COMMUNICATIONS or resident physician. A resident physician means a physician who is in training to be an anesthesiologist. The patient acknowledged these risks and would like to proceed with the anesthesia plan. Sedation. Informed Consent: Anesthetic plan and risks discussed with patient. Plan discussed with DIRECTOR OF COMMUNICATIONS. Anesthesia Screening documented in this encounter Miscellaneous Notes * Addendum Note - Kyra Spear MD - 10/23/2020 1:49 PM EDT Addendum created 10/23/20 1349 by Sites, Kyra Avery MD Clinical Note Signed documented in this encounter Plan of Treatment Upcoming Encounters Date Type Department Care Team (Late st Contact Info) Description 06/15/2024 10:00 AM EST Hospital Encounter [place] [address] Arrived 08/09/2024 10:00 AM EDT Hospital Encounter [place] [address] Arrived documented as of this encounter Visit [...] mg documented in this encounter Care Teams Meter Mechanic Relationship Specialty Start Date End Date Dewayne Carrington MD PCP - General 09/02/16 05/08/24 documented as of this encounter
--- OUTSIDE RECORDS SUMMARY | 2024-05-24 14:25 | XMS_ITS | Encounter Summary ---
Author Organization [facility] Address [facility] [place] [address] Care Team Providers Care Bi Application Developer Name Role Phone Dewayne Carrington MD Primary Care Provider [phone] Encounter Details Date Type Department Care Team (Late st Contact Info) Description 11/27/2020 [place] [phone] Daniela Torres MD Social History Tobacco Use [...] PM Referring provider: Dr. Fitzpatrick Patient location: [facility] [place] [facility] Past Medical History: HTN CAD: ?? [facility]ization in [facility] [...] stress test at [facility] in [place], [place] May 02, 2013 during which he developed left shoulder and arm discomfort during submaximal exercise on the treadmill and after which he was converted to a pharmacologic test; nuclear imaging showed ejection fraction of 45% with a partially reversible inferior defect ?? Cath [facility] 05/13/2013: normal left main, mild diffuse disease throughout the LAD with an 80% mid stenosis representing a restenosis lesion, mild diffuse disease in the proximal obtuse marginal branch, and mild diffuse disease throughout the right coronary artery; status post 3.0 X 12 mm JON to 80%mid-LAD lesion (in-stent restenosis) ?? Heart catheterization [facility] January 06, 2014 showing normal left main, hazy 50% mid LAD stenosis, mild diffuse disease throughout the circumflex, and moderate diffuse disease in the proximal RCA with a totally occluded distal RCA with brisk flow via bridging collaterals; fractional flow reserveon the LAD 0.85 ?? Nuclear stress test [facility] August 2016 reportedly showing a [...] every night without issue. On arrival to [facility] [place] [facility], he was found to be in stable VT. He ultimately became hypotensive to the 90s and was cardioverted there. His VT was a rate of 150bpm (EKG in our system). Initial troponin is negative and he denies chest pain and other symptoms with the exception of sudden onset this evening. I reviewed his ICD settings in our chart here at [facility], and he has two VT detection zones. [...] AM EST Hospital Encounter [place] [address] Arrived 08/09/2024 10:00 AM EDT Hospital Encounter [place] [address] Arrived documented as of this encounter Visit Diagnoses Not on filedocumented in this encounter Care Teams Bi Application Developer Relationship Specialty Start Date End Date Dewayne Carrington MD PCP - General 09/02/16 05/08/24 documented as of this encounter
--- OUTSIDE RECORDS SUMMARY | 2024-05-24 14:25 | XMS_ITS | Encounter Summary ---
Author Organization [facility] [place] [address] Care Team Providers Care Stereotyper Name Role Phone Dewayne Carrington MD Primary Care Provider Encounter Details Date Type Department Care Team (Late st Contact Info) Description 11/27/2020 [place] [address] Daniela Torres MD Social History [...] AM EST Hospital Encounter Non-[place] [address] Arrived 08/09/2024 10:00 AM EDT Hospital Encounter Non[place] [address] Arrived documented as of this encounter Visit Diagnoses Not on filedocumented in this encounter Care Teams Stereotyper Relationship Specialty Start Date End Date Dewayne Carrington MD PCP - General 09/02/16 05/08/24 documented as of this encounter
--- OUTSIDE RECORDS SUMMARY | 2024-05-24 14:25 | XMS_ITS | Encounter Summary ---
Author Organization [facility] Address [facility] [place] [address] Care Team Providers Care Laboratory Chief Name Role Phone Dewayne Carrington MD Primary Care Provider [phone] Reason for Visit * Auth/Cert Specialty Diagnoses / Procedures Referred By Conteddie t Referred To Contact Diagnoses persistent atrial fibrillation Procedures PRO CARDIOVERSION ELECTIVE ARRHYTHMIA EXTERNAL CARDIOVERSION-ELECTIVE (WRVU 2.25) Referral ID Status Reason Start Date Expiration Date Visits Re quested Visits Authorized [id number] 1 1 Encounter Details Date Type Department Care Team (Late st Contact Info) Description 10/23/2020 9:30 AM EDT Office Visit Cardiology at [address] [address] David Garner PA [facility] [place] [address] Persistent atrial fibrillation Social History Tobacco Use [...] beginning fall ?? Nuclear stress test at [facility] in [place], [place] May 02, 2013 during which he developed left shoulder and arm discomfort during submaximal exercise on the treadmill and after which he was converted to a pharmacologic test; nuclear imaging showed ejection fraction of 45% with a partially reversible inferior defect ?? Cath [facility] 05/13/2013: normal left main, mild diffuse disease throughout the LAD with an 80% mid stenosis representing a restenosis lesion, mild diffuse disease in the proximal obtuse marginal branch, and mild diffuse disease throughout the right coronary artery; status post 3.0 X 12 mm JON to 80%mid-LAD lesion (in-stent restenosis) ?? Heart catheterization [facility] January 06, 2014 showing normal left main, hazy 50% mid LAD stenosis, mild diffuse disease throughout the circumflex, and moderate diffuse disease in the proximal RCA with a totally occluded distal RCA with brisk flow via bridging collaterals; fractional flow reserveon the LAD 0.85 ?? Nuclear stress test [facility] August 2016 reportedly showing a small [...] 80 (documented on ICD interrogation 07/18/14) ?? [id number] score = 3 ?? Patient initially reluctant to be anticoagulated as recommended ??? Atrial pacemaker lead displacement Overview Note: New finding at office follow up 04/10/2014 Plan lead reposition/replacement ??? ICD (implantable cardioverter-defibrillator), dual, in situ Overview Note: New Atrial electrode: Guidant Dextrus Model# 4126-53 cm Serial# [id number] ?? Bipolar, steroid-tipped, active-fixation IS-1 lead ?? [...] at 10 V: No Old Ventricular electrode: [employer] [place] Model# 0292 Serial# [id number] ?? Bipolar, steroid-tipped, active-fixation DF-4 lead ?? [...] Atrial electrode: Guidant Dextrus Model# 4136 Serial# [id number] ?? Bipolar, steroid-tipped, active-fixation IS-1 lead ?? Access: Axillary vein ?? Location Removed 04/17/2014 ?? Implanted: 01/10/2014 Pulse generator: [employer] [place] Model# E162 Serial# [id number] ?? DDDR ICD ?? Location: Subcutaneous The [...] 10/23/20 0921 BP: 127/68 BP Location ([facility]): Left arm Patient Position: Sitting Pulse: 68 [...] AM EST Hospital Encounter Non-[place] [address] Arrived 08/09/2024 10:00 AM EDT Hospital Encounter Non-Invasive [place] [address] Arrived documented as of this encounter Procedures [...] (Bezet) 396 ms MUSE SYSTEM Calculated R [place] -58 degrees MUSE SYSTEM Calculated T [place] -45 degrees MUSE SYSTEM INTERPRETATION Demand pacemaker; interpretation is based on intrinsic rhythm Atrial fibrillation with premature ventricular or aberrantly conducted complexes Left axis deviation Inferior infarct , age undetermined Possible Anterior infarct (cited on or before 06-NOV-2016) Abnormal ECG When compared with ECG of 06-NOV-2016 13:03, Atrial fibrillation has replaced Sinus rhythm Confirmed by MD Davin, [facility] ([id number]) on 10/23/2020 9:47:44 AM MUSE SYSTEM 10/23/2020 9:23 AM EDT 10/23/2020 9:47 AM EDT Irena Daly MD ECG ORDERABLES MUSE SYSTEM documented in this encounter Visit Diagnoses Diagnosis Persistent atrial fibrillation Atrial fibrillation documented in this encounter Care Teams Laboratory Chief Relationship Specialty Start Date End Date Dewayne Carrington MD PCP - General 09/02/16 05/08/24 documented as of this encounter
--- OUTSIDE RECORDS SUMMARY | 2024-05-24 14:25 | XMS_ITS | Encounter Summary ---
Author Organization [facility] [place] [address] Care Team Providers Care Social Services Specialist Name Role Phone Dewayne Carrington MD Primary Care Provider [phone] Encounter Details Date Type Department Care Team (Late st Contact Info) Description 10/11/2020 Orders [place] [phone] David Garner, PA [facility] [place] [address] Persistent atrial fibrillation Social History Tobacco Use [...] AM EST Hospital Encounter Non-[place] [phone] Arrived 08/09/2024 10:00 AM EDT Hospital Encounter [place] [phone] Arrived documented as of this encounter Results * EKG 12 Lead (10/23/2020 9:23 AM EDT) Ventricular rate 61 BPM MUSE SYSTEM Atrial Rate 326 BPM MUSE SYSTEM QRS Duration 116 ms MUSE SYSTEM Q-T Interval 394 ms MUSE SYSTEM QTC Calculated (Bezet) 396 ms MUSE SYSTEM Calculated R [place] -58 degrees MUSE SYSTEM Calculated T [place] -45 degrees MUSE SYSTEM INTERPRETATION Demand pacemaker; interpretation is based on intrinsic rhythm Atrial fibrillation with premature ventricular or aberrantly conducted complexes Left axis deviation Inferior infarct , age undetermined Possible Anterior infarct (cited on or before 06-NOV-2016) Abnormal ECG When compared with ECG of 06-NOV-2016 13:03, Atrial fibrillation has replaced Sinus rhythm Confirmed by MD Davin, [facility] ([id number]) on 10/23/2020 9:47:44 AM MUSE SYSTEM 10/23/2020 9:23 AM EDT 10/23/2020 9:47 AM EDT Irena Daly MD ECG ORDERABLES MUSE SYSTEM * Magnesium (10/23/2020 9:05 AM EDT) Magnesium 0.81 0.69 - 1.07 mmol/L [facility] Blood 10/23/2020 9:05 AM EDT 10/23/2020 9:09 AM EDT Narrative Resulting Agency Comment Spec In Lab Irena Daly MD CHEMISTRY ORDERABLES Performing Organization Address City/[facility]/ZIP Co de Phone Number [facility] [place] [address] * (ABNORMAL) Basic Metabolic Panel (non-fasting) (10/23/2020 9:05 AM EDT) Glucose 263(H) 65 - 199 mg/dL [facility] Comment:Diabetes: >=200 mg/d L plus symptoms Blood Urea Nitrogen 25(H) 10 - 20 mg/dL [facility] Creatinine 0.90 0.80 - 1.50 mg/dL [facility] Sodium 141 135 - 145 mmol/L [facility] Potassium 4.5 3.5 - 5.0 mmol/L [facility] Comment: Please note: ??Patients with WBC >100,000 may have falsely elevated Potassium levels. ??For accurate Potassium quantification in these patients send serum separator tube (gold top) for subsequent determinations. ??Contact the Clinical Chemistry Laboratory if there are any questions. Chloride 104 98 - 107 mmol/L [facility] Carbon Dioxide 27 22 - 31 mmol/L [facility] Anion Gap 10 5 - 15 mmol/L [facility] Calcium 9.5 8.5 - 10.5 mg/dL [facility] Est Glomerular Filtration Rate 86 >=60 mL/min/1. 73 m?? [facility] Comment: This patient? s [...] In Lab Irena Daly MD CHEMISTRY ORDERABLES [facility] [place] [place] [address] documented in this encounter Visit Diagnoses Diagnosis Persistent atrial fibrillation Atrial fibrillation documented in this encounter Care Teams Social Services Specialist Relationship Specialty Start Date End Date Dewayne Carrington MD PCP - General 09/02/16 05/08/24 documented as of this encounter
--- OUTSIDE RECORDS SUMMARY | 2024-05-24 14:25 | XMS_ITS | Encounter Summary ---
Author Organization [facility] [place] [address] Care Team Providers Care Label Operator Name Role Phone Dewayne Carrington MD Primary Care Provider [phone] Encounter Details Date Type Department Care Team ([facility] st Contact Info) Description 10/18/2020 Telephone Cardiology at [address] [phone] Aileen Larios RN Social History Tobacco Use [...] to procedure. NPO after midnight. Understands that hammer driver is needed to transport them upon discharge. documented in this encounter Plan of Treatment Upcoming Encounters Date Type Department Care Team (Late st Contact Info) Description 06/15/2024 10:00 AM EST Hospital Encounter Non-[place]vasive [place] [address] Arrived 08/09/2024 10:00 AM EDT Hospital Encounter Non-Invasive [place] [address] Arrived documented as of this encounter Visit Diagnoses Not on filedocumented in this encounter Care Teams Label Operator Relationship Specialty Start Date End Date Dewayne Carrington MD PCP - General 09/02/16 05/08/24 documented as of this encounter
--- OUTSIDE RECORDS SUMMARY | 2024-05-24 14:25 | XMS_ITS | Encounter Summary ---
Author Organization [facility] [place] [address] Care Team Providers Care Emergency Services Director Name Role Phone Dewayne Carrington MD Primary Care Provider [phone] Encounter Details Date Type Department Care Team (Late st Contact Info) Description 09/20/2020 Orders Only Cardiology at [address] [phone] Social History Tobacco Use Types Packs/Day Years [...] AM EST Hospital Encounter Non-[place] [address] Arrived 08/09/2024 10:00 AM EDT Hospital Encounter Non-[place] [address] Arrived documented as of this encounter Procedures [...] Reformation IDCO Capacitor Last Charge Date Time [id number] IDCO Capacitor Charge Time 3.8 s IDCO [...] E162 IDCO Implantable Pulse Generator Serial Number [id number] IDCO Implantable Pulse Generator Ortho/Prosthetic Aide [place] Scientific IDCO Implantable Pulse Generator Implant Date 20140110 IDCO Implantable Lead Model 4136 IDCO Implantable Lead Serial Number [id number] IDCO Implantable Lead Ortho/Prosthetic Aide GuidRanberry IDCO Implantable Lead Implant Date 20130421 IDCO Implantable Lead Polarity Type Bipolar Lead IDCO Implantable Lead Location Right Atrium IDCO Implantable Lead Model 0292 IDCO Implantable Lead Serial Number [id number] IDCO Implantable Lead Ortho/Prosthetic Aide [place] Scientific IDCO Implantable Lead Implant Date IDCO [...] IDCO Lead Channel Pacing Threshold Measurement Method Paster Operator Manual IDCO Lead Channel Pacing Threshold [...] IDCO Lead Channel Pacing Threshold Measurement Method Paster Operator Manual IDCO Lead Channel Pacing Threshold [...] on filedocumented in this encounter Care Teams Emergency Services Director Relationship Specialty Start Date End Date Dewayne Carrington MD PCP - General 09/02/16 05/08/24 documented as of this encounter
--- OUTSIDE RECORDS SUMMARY | 2024-05-24 14:25 | XMS_ITS | Encounter Summary ---
Author Organization [facility] [place] [address] Care Team Providers Care Cut Off Saw Grader Name Role Phone Dewayne Carrington MD Primary Care Provider [phone] Encounter Details Date Type Department Care Team (Late st Contact Info) Description 12/01/2020 Orders Only Cardiology at [address] [phone] Social History Tobacco Use Types Packs/Day Years [...] AM EST Hospital Encounter Non-[place] [address] Arrived 08/09/2024 10:00 AM EDT Hospital Encounter [place] [address] Arrived documented as of this encounter Procedures [...] Reformation IDCO Capacitor Last Charge Date Time [id number] IDCO Capacitor Charge Time 3.8 s IDCO [...] And Therapy Details NonSustV IDCO Episode Identifier V-[id number] IDCO Episode Date Time IDCO Episode Type Category VT IDCO Episode Vendor Type Category NSVT IDCO Episode Type Induced Flag NO IDCO Episode Detection Interval Ventricular 366 ms IDCO Episode Duration 15 s IDCO Episode Detection And Therapy Details NonSustV IDCO Episode Identifier [id number] IDCO Episode Date Time [id number] IDCO Episode Type Category VT IDCO Episode Vendor Type Category NSVT IDCO Episode Type Induced Flag NO IDCO Episode Detection Interval Ventricular 377 ms IDCO Episode Duration 34 s IDCO Episode Detection And Therapy Details NonSustV IDCO Episode Identifier [id number] IDCO Episode Date Time [id number] IDCO Episode Type Category VT IDCO Episode [...] And Therapy Details NonSustV IDCO Episode Identifier [id number] IDCO Episode Date Time IDCO Episode Type Category VT IDCO Episode Vendor Type Category NSVT IDCO Episode Type Induced Flag NO IDCO Episode Detection Interval Ventricular 392 ms IDCO Episode Duration 6 s IDCO Episode Detection And Therapy Details NonSustV IDCO Episode Identifier [id number] IDCO Episode Date Time [id number] IDCO Episode Type Category VT IDCO Episode Vendor Type Category VT-1 IDCO Episode Type Induced Flag NO IDCO Episode Detection Interval Ventricular 403 ms IDCO Episode Duration 120 s IDCO Episode Detection And Therapy Details VT-1 No Therapy IDCO Episode Identifier [id number] IDCO Episode Date Time IDCO Episode Type Category VT IDCO Episode Vendor Type Category VT-1 IDCO Episode Type Induced Flag NO IDCO Episode Detection Interval Ventricular 364 ms IDCO Episode Duration 44 s IDCO Episode Detection And Therapy Details VT-1 ATPx1 IDCO Episode Identifier [id number] IDCO Episode Date Time IDCO Episode Type [...] E162 IDCO Implantable Pulse Generator Serial Number [id number] IDCO Implantable Pulse Generator Hoop Driving Machine Operator Helper Popps Apps IDCO Implantable Pulse Generator Implant Date 20140110 IDCO Implantable Lead Model 4136 IDCO Implantable Lead Serial Number [id number] IDCO Implantable Lead Hoop Driving Machine Operator Helper GuidSyncSum IDCO Implantable Lead Implant Date 20130421 IDCO Implantable Lead Polarity Type Bipolar Lead IDCO Implantable Lead Location Right Atrium IDCO Implantable Lead Model 0292 IDCO Implantable Lead Serial Number [id number] IDCO Implantable Lead Hoop Driving Machine Operator Helper [place] [employer] IDCO Implantable Lead Implant Date IDCO [...] IDCO Lead Channel Pacing Threshold Measurement Method Spa Host Manual IDCO Lead Channel Pacing Threshold Polarity [...] IDCO Lead Channel Pacing Threshold Measurement Method Spa Host Manual IDCO Lead Channel Pacing Threshold Polarity [...] in this encounter Care Teams Cut Off Saw Grader Relationship Specialty Start Date End Date Dewayne Carrington MD PCP - General 09/02/16 05/08/24 documented as of this encounter
--- OUTSIDE RECORDS SUMMARY | 2024-05-24 14:25 | XMS_ITS | Encounter Summary ---
Author Organization [facility] [place] [address] Care Team Providers Care Core Stripper Name Role Phone Dewayne Carrington MD Primary Care Provider [phone] Reason for Visit * Auth/Cert Specialty Diagnoses / Procedures Referred By Rosa t Referred To Contact Diagnoses persistent atrial fibrillation Procedures PRO CARDIOVERSION ELECTIVE ARRHYTHMIA EXTERNAL CARDIOVERSION-ELECTIVE (WRVU 2.25) Referral ID Status Reason Start Date Expiration Date Visits Re quested Visits Authorized [id number] 1 1 Encounter Details Date Type Department Care Team (Latest Contact Info) Description 10/23/2020 8:50 AM EDT Laboratory Appointment Lab [address] [place] [phone] Persistent atrial fibrillation Social History Tobacco Use [...] AM EST Hospital Encounter Non-[place] [phone] Arrived 08/09/2024 10:00 AM EDT Hospital Encounter Non-[place] [address] Arrived documented as of this encounter Procedures Procedure Name Priority Date/Time Associated Diagnosis Comments HC MAGNESIUM, SERUM Routine 10/23/2020 9:05 AM EDT Persistent atrial fibrillation BASIC METABOLIC PANEL Routine 10/23/2020 9:05 AM EDT Persistent atrial fibrillation documented in this encounter Results * (ABNORMAL) Basic Metabolic Panel (non-fasting) (10/23/2020 9:05 AM EDT) Glucose 263(H) 65 - 199 mg/dL [facility] Comment:Diabetes: >=200 mg/d L plus symptoms Blood Urea Nitrogen 25(H) 10 - 20 mg/dL [facility] Creatinine 0.90 0.80 - 1.50 mg/dL [facility] Sodium 141 135 - 145 mmol/L [facility] Potassium 4.5 3.5 - 5.0 mmol/L [facility] Comment: Please note: ??Patients with WBC >100,000 may have falsely elevated Potassium levels. ??For accurate Potassium quantification in these patients send serum separator tube (gold top) for subsequent determinations. ??Contact the Clinical Chemistry Laboratory if there are any questions. Chloride 104 98 - 107 mmol/L [facility] Carbon Dioxide 27 22 - 31 mmol/L [facility] Anion Gap 10 5 - 15 mmol/L [facility] Calcium 9.5 8.5 - 10.5 mg/dL [facility] Est Glomerular Filtration Rate 86 >=60 mL/min/1. 73 m?? [facility] [...] Daly MD CHEMISTRY ORDERABLES Performing Organization Address City/[facility]/ZIP Co de Phone Number [facility] [place] [address] * Magnesium (10/23/2020 9:05 AM EDT) Magnesium 0.81 0.69 - 1.07 mmol/L [facility] Blood 10/23/2020 9:05 AM EDT 10/23/2020 9:09 AM EDT Narrative Resulting Agency Comment Spec In Lab Irena Daly MD CHEMISTRY ORDERABLES Performing Organization Address [facility] [place] [address] documented in this encounter Visit Diagnoses Diagnosis Persistent atrial fibrillation Atrial fibrillation documented in this encounter Care Teams Core Stripper Relationship Specialty Start Date End Date Dewayne Carrington MD PCP - General 09/02/16 05/08/24 documented as of this encounter
--- OUTSIDE RECORDS SUMMARY | 2024-05-24 14:25 | XMS_ITS | Encounter Summary ---
Author Organization [facility] [place] [address] Care Team Providers Care Head Mechanic Name Role Phone Dewayne Carrington MD Primary Care Provider [phone] Encounter Details Date Type Department Care Team (Late st Contact Info) Description 11/27/2020 External [place] [address] Social History Tobacco Use Types Packs/Day Years [...] AM EST Hospital Encounter Non[place] [address] Arrived 08/09/2024 10:00 AM EDT Hospital Encounter Non[place] [address] Arrived documented as of this encounter Procedures Procedure Name Priority Date/Time Associated Diagnosis Comments ECG SCAN Routine 11/27/2020 documented in this encounter Results * Scan Doc: ECG (11/27/2020) Historical Provider MD LARIOS MGR SCAN EX T ORDR/RSLT documented in this encounter Visit Diagnoses Not on filedocumented in this encounter Care Teams Head Mechanic Relationship Specialty Start Date End Date Dewayne Carrington MD PCP - General 09/02/16 05/08/24 documented as of this encounter
--- OUTSIDE RECORDS SUMMARY | 2024-05-24 14:25 | XMS_ITS | Encounter Summary ---
Author Organization [facility] [place] [address] Care Team Providers Care Pipe Assembly Worker Name Role Phone Dewayne Carrington MD Primary Care Provider [phone] Encounter Details Date Type Department Care Team (Late st Contact Info) Description 09/26/2020 Orders Only Cardiology at [address] [address] Social History Tobacco Use Types Packs/Day Years [...] AM EST Hospital Encounter Non-[place] [address] Arrived 08/09/2024 10:00 AM EDT Hospital Encounter Non-[place]vasive [place] [address] Arrived documented as of this encounter Procedures [...] E162 IDCO Implantable Pulse Generator Serial Number [id number] IDCO Implantable Pulse Generator Certified First Assistant [employer] IDCO Implantable Pulse Generator Implant Date 20140110 IDCO Implantable Lead Model 4136 IDCO Implantable Lead Serial Number [id number] IDCO Implantable Lead Certified First Assistant Guidant IDCO Implantable Lead Implant Date 20130421 IDCO Implantable Lead Polarity Type Bipolar Lead IDCO Implantable Lead Location Right Atrium IDCO Implantable Lead Model 0292 IDCO Implantable Lead Serial Number [id number] IDCO Implantable Lead Certified First Assistant [employer] IDCO Implantable Lead Implant Date IDCO [...] IDCO Lead Channel Pacing Threshold Measurement Method Dairy Scientist Manual IDCO Lead Channel Pacing Threshold Polarity [...] IDCO Lead Channel Pacing Threshold Measurement Method Dairy Scientist Manual IDCO Lead Channel Pacing Threshold Polarity [...] filedocumented in this encounter Care Teams Pipe Assembly Worker Relationship Specialty Start Date End Date Dewayne Carrington MD PCP - General 09/02/16 05/08/24 documented as of this encounter
--- OUTSIDE RECORDS SUMMARY | 2024-05-24 14:25 | XMS_ITS | Encounter Summary ---
Author [facility] [place] [address] Care Team Providers Care Rotary Engraver Name Role Phone Dewayne Carrington MD Primary Care Provider [phone] Encounter Details Date Type Department Care Team (Late st Contact Info) Description 12/07/2020 Orders Only Cardiology at [address] [phone] Sita Myers RN Sustained VT (ventricular tachycardia) [...] AM EST Hospital Encounter Non-[place] [phone] Arrived 08/09/2024 10:00 AM EDT Hospital Encounter Non-[place] [address] Arrived documented as of this encounter Visit Diagnoses Diagnosis Sustained VT (ventricular tachycardia) Paroxysmal ventricular tachycardia documented in this encounter Care Teams Rotary Engraver Relationship Specialty Start Date End Date Dewayne Carrington MD PCP - General 09/02/16 05/08/24 documented as of this encounter
--- OUTSIDE RECORDS SUMMARY | 2024-05-24 14:25 | XMS_ITS | Encounter Summary ---
Author Organization [facility] Address [facility] [place] [address] Care Team Providers Care E Commerce Strategist Name Role Phone Dewayne Carrington MD Primary Care Provider [phone] Encounter Details Date Type Department Care Team ([facility] st Contact Info) Description 09/24/2020 [place] [phone] Kylee Bowling PA [facility] [address] Social History Tobacco Use Types Packs/Day Years [...] pdf document Date of transmission: 09/24/20 Device immigration inspector: BSI Device type: DC ICD H/o afib on Xarelto, metoprolol succinate 250mg po daily Presenting rhythm: AF/VS AP 0% AIRCRAFT CYLINDER MECHANIC 19% Battery: 3 years Episodes: 19 tachy [...] seen by Dr. Molina on 05/23/20 at [facility]) MAXIMO Bo 09/24/2020 8:45 AM Cc: Shaheen [...] twice daily. I will also follow-up with Venujhoan regarding the status of his cardioversion order. [...] AM EST Hospital Encounter [place] [address] Arrived 08/09/2024 10:00 AM EDT Hospital Encounter Non[place] [address] Arrived documented as of this encounter Visit Diagnoses Not on filedocumented in this encounter Care Teams E Commerce Strategist Relationship Specialty Start Date End Date Dewayne Carrington MD PCP - General 09/02/16 05/08/24 documented as of this encounter
--- OUTSIDE RECORDS SUMMARY | 2024-05-24 14:25 | XMS_ITS | Encounter Summary ---
Author Organization [facility] [place] [address] Care Team Providers Care Dietetics Professor Name Role Phone Dewayne Carrington MD Primary Care Provider [phone] Encounter Details Date Type Department Care Team (Late st Contact Info) Description 11/22/2020 Orders Only Cardiology at [address] [address] Social History Tobacco Use Types Packs/Day Years [...] AM EST Hospital Encounter [place] [address] Arrived 08/09/2024 10:00 AM EDT Hospital Encounter Non[place] [address] Arrived documented as of this encounter Procedures [...] Therapy Details Presenting EGM IDCO Episode Identifier [id number] IDCO Episode Date Time IDCO Episode Type [...] And Therapy Details ATR IDCO Episode Identifier [id number] IDCO Episode Date Time IDCO Episode Type Category Other IDCO Episode Vendor Type Category XANDER IDCO Episode Detection Interval Ventricular 659 ms IDCO Episode Duration 43 s IDCO Episode Detection And Therapy Details [facility] IDCO Episode Identifier [id number] IDCO Episode Date Time IDCO Episode Type Category Other IDCO Episode Vendor Type Category XANDER IDCO Episode Detection Interval Ventricular 1,017 ms IDCO Episode Duration 60 s IDCO Episode Detection And Therapy Details [facility] IDCO Episode Identifier [id number] IDCO Episode Date Time IDCO Episode Type Category Other IDCO Episode Vendor Type Category XANDER IDCO Episode Detection Interval Ventricular 1,000 ms IDCO Episode Duration 58 s IDCO Episode Detection And Therapy Details [facility] IDCO Episode Identifier [id number] IDCO Episode Date Time [id number] IDCO Episode Type Category Other IDCO Episode Vendor Type Category XANDER IDCO Episode Detection Interval Ventricular 938 ms IDCO Episode Duration 52 s IDCO Episode Detection And Therapy Details IDCO Episode Identifier [facility]-[id number] IDCO Episode Date Time [id number] IDCO Episode Type Category Other IDCO Episode Vendor Type Category XANDER IDCO Episode Detection Interval Ventricular 857 ms IDCO Episode Duration 50 s IDCO Episode Detection And Therapy Details IDCO Episode Identifier [facility]-[id number] IDCO Episode Date Time [id number] IDCO Episode Type Category Other IDCO Episode Vendor Type Category XANDER IDCO Episode Detection Interval Ventricular 714 ms IDCO Episode Duration 38 s IDCO Episode Detection And Therapy Details IDCO Episode Identifier [facility]16830 IDCO Episode Date Time [id number] IDCO Episode Type Category Other IDCO Episode Vendor Type Category XANDER IDCO Episode Detection Interval Ventricular 741 ms IDCO Episode Duration 39 s IDCO Episode Detection And Therapy Details IDCO Episode Identifier [facility]11834 IDCO Episode Date Time [id number] IDCO Episode Type Category Other IDCO Episode Vendor Type Category XANDER IDCO Episode Detection Interval Ventricular 1,017 ms IDCO Episode Duration 56 s IDCO Episode Detection And Therapy Details IDCO Episode Identifier [facility]-[id number] IDCO Episode Date Time [id number] IDCO Episode Type Category Other IDCO Episode [...] E162 IDCO Implantable Pulse Generator Serial Number [id number] IDCO Implantable Pulse Generator Manager Medical Device [place] [employer] IDCO Implantable Pulse Generator Implant Date 20140110 IDCO Implantable Lead Model 4136 IDCO Implantable Lead Serial Number [id number] IDCO Implantable Lead Manager Medical Device Guidant IDCO Implantable Lead Implant Date 20130421 IDCO Implantable Lead Polarity Type Bipolar Lead IDCO Implantable Lead Location Right Atrium IDCO Implantable Lead Model 0292 IDCO Implantable Lead Serial Number [id number] IDCO Implantable Lead Manager Medical Device [place] Scientific IDCO Implantable Lead Implant Date IDCO [...] IDCO Lead Channel Pacing Threshold Measurement Method Roofer Helper Vinyl Coating Manual IDCO Lead Channel Pacing Threshold Polarity [...] IDCO Lead Channel Pacing Threshold Measurement Method Roofer Helper Vinyl Coating Manual IDCO Lead Channel Pacing Threshold Polarity [...] on filedocumented in this encounter Care Teams Dietetics Professor Relationship Specialty Start Date End Date Dewayne Carrington MD PCP - General 09/02/16 05/08/24 documented as of this encounter
--- OUTSIDE RECORDS SUMMARY | 2024-05-24 14:25 | XMS_ITS | Encounter Summary ---
Author Organization [facility] [place] [address] Care Team Providers Care Electrical Continuity Tester Name Role Phone Dewayne Carrington MD Primary Care Provider [phone] Reason for Visit * Auth/Cert Specialty Diagnoses / Procedures Referred By Rosa t Referred To Contact Diagnoses persistent atrial fibrillation Procedures PRO CARDIOVERSION ELECTIVE ARRHYTHMIA EXTERNAL CARDIOVERSION-ELECTIVE (WRVU 2.25) Referral ID Status Reason Start Date Expiration Date Visits Re quested Visits Authorized [id number] 1 1 Encounter Details Date Type Department Care Team (Latest Contact Info) Description 10/23/2020 10:15 AM EDT - 10/23/2020 12:55 PM EDT Hospital En[place] [address] Fantasma Matos MD [facility] [place] [address] Persistent atrial fibrillation; PAF (paroxysmal atrial fibrillation) [...] the adhesive pads were placed, call the license distributor oracle fusion middleware architect at . We will schedule a follow-up appointment with the license distributor here, or you will be scheduled to see your local doctor soon. Any specific instructions that apply to you will be given to you prior to discharge from the hospital. If you have any questions, call the Cardiology Department at Thursday through Thursday 8:00 a.m. to 4:30 p.m. * Attachments The following attachments cannot be sent through Care Everywhere. * Cardioversion: Post-op (Citizen [place]) documented in this encounter Medications at Time [...] disease) Overview Note: ?? Heart catheterization in [facility] in 2007 with placement of a stent in an unspecified vessel ?? Repeat heart catheterization in 2008 with placement of stents to both the LAD and circumflex ?? Followup heart catheterization in 2008 showing stable results in both vessels ?? Recurrent chest discomfort in a somewhat atypical pattern beginning fall ?? Nuclear stress test at [facility] in [place], [place] May 02, 2013 during which he [...] 80%mid-LAD lesion (in-stent restenosis) ?? Heart catheterization [facility] January 06, 2014 showing normal left main, hazy 50% mid LAD stenosis, mild diffuse disease throughout the circumflex, and moderate diffuse disease in the proximal RCA with a totally occluded distal RCA with brisk flow via bridging collaterals; fractional flow reserveon the LAD 0.85 ?? Nuclear stress test [facility] August 2016 reportedly showing a small [...] 80 (documented on ICD interrogation 07/18/14) ?? [id number] score = 3 ?? Patient initially reluctant to be anticoagulated as recommended ??? Atrial pacemaker lead displacement Overview Note: New finding at office follow up 04/10/2014 Plan lead reposition/replacement ??? ICD (implantable cardioverter-defibrillator), dual, in situ Overview Note: New Atrial electrode: Guidant Dextrus Model# 4126-53 cm Serial# [id number] ?? Bipolar, steroid-tipped, active-fixation IS-1 lead ?? [...] at 10 V: No Old Ventricular electrode: [place] [employer] Alkol Model# 0292 Serial# [id number] ?? Bipolar, steroid-tipped, active-fixation DF-4 lead ?? [...] Atrial electrode: Guidant Dextrus Model# 4136 Serial# [id number] ?? Bipolar, steroid-tipped, active-fixation IS-1 lead ?? Access: Axillary vein ?? Location Removed 04/17/2014 ?? Implanted: 01/10/2014 Pulse generator: EMBA Medical Incepta Model# E162 Serial# [id number] ?? DDDR ICD ?? Location: Subcutaneous The [...] past medical history. Pertinent Medications: No current [facility]-ordered facility-administered medications on file. Current Outpatient Medications Ordered in [facility] Medication Sig Dispense Refill ??? [email or web address] [...] Attending: Fantasma Matos MD 10/23/2020 Service Pager: [phone] documented in this encounter Miscellaneous Notes * Op Note - Fantasma Matos MD - 10/23/2020 11:35 AM EDT [facility] Operative Note Patient Name: Marquez Hendrix : [id number] MR#: [id number] Case Date: 10/23/2020 Surgeon: Surgeon(s) and Role: * Fantasma Matos MD - Primary * David Garner PA-C - Spool Worker Preoperative diagnosis: persistent atrial fibrillation Postoperative diagnosis: [...] interrogation confirmed conversion. DEVICE INTERROGATION: Device type: EMBA Medical Incepta ICD E 162 [id number] implanted 01/10/2014 Programmed: DDDR w/ mode switch [...] AM EST Hospital Encounter [place] [address] Arrived 08/09/2024 10:00 AM EDT Hospital Encounter [place] [address] Arrived documented as of this encounter Procedures Procedure Name Priority Date/Time Associated Diagnosis Comments EKG 12-LEAD STAT 10/23/2020 11:54 AM EDT PAF (paroxysmal atrial fibrillation) Cardioversion Elective Arrhythmia External (93133) 10/23/2020 11:25 AM EDT Persistent atrial fibrillation [...] (Bezet) 472 ms MUSE SYSTEM Calculated P [place] 49 degrees MUSE SYSTEM Calculated R [place] -51 degrees MUSE SYSTEM INTERPRETATION Sinus rhythm with 1st degree A-V block Left axis deviation Low voltage QRS Inferior infarct (cited on or before 23-OCT-2020) Cannot rule out Anterior infarct (cited on or before 06-NOV-2016) Abnormal ECG When compared with ECG of 23-OCT-2020 09:23, Sinus rhythm has replaced Atrial fibrillation Nonspecific T wave abnormality, improved in Lateral leads Confirmed by MD Davin, Connor ([id number]) on 10/23/2020 12:10:37 PM MUSE SYSTEM 10/23/2020 [...] Day of Surgery (Day of Procedure) 1119 ([facility] ider: Marii Beck RN) PRN Medication Order [...] Routine documented in this encounter Care Teams Electrical Continuity Tester Relationship Specialty Start Date End Date Dewayne Carrington MD PCP - General 09/02/16 05/08/24 documented as of this encounter
--- OUTSIDE RECORDS SUMMARY | 2024-05-24 14:25 | XMS_ITS | Encounter Summary ---
Author Organization [facility] Address [facility] [place] [address] Care Team Providers Care Tapper Bit Name Role Phone Dewayne Carrington MD Primary Care Provider Encounter Details Date Type Department Care Team (Late st Contact Info) Description 12/03/2020 Notes Only Cardiology at [address] [address] Edy Torres PA [facility] [place] [address] Social History Tobacco Use Types Packs/Day Years [...] Monitoring Interpretation ?? Transmission Date: 12/01/2020 Device Ironing Pleater and Type: [place] [employer] dual lead ICD Battery Status: good; [...] success ?? Impression: Normally functioning dual lead [place] [employer] ICD Hx of PAF, anticoagulated with xarelto ; most recent DCCV at [facility] on 10/24/2020 Hx of NSVT and VT - most recently seen @ [facility] on 11/28(cardioverted and loaded with amiodarone). ATPhas been applied in the past with variable success. ??Scheduled for outpatient follow up 12/12/2020 [facility] w/Dr. Matos ?? Provider: MAXIMO Leija EP Consult attending physician documented in this encounter Plan of Treatment Upcoming Encounters Date Type Department Care Team (Late st Contact Info) Description 06/15/2024 10:00 AM EST Hospital Encounter [place] [address] Arrived 08/09/2024 10:00 AM EDT Hospital Encounter [place] [address] Arrived documented as of this encounter Visit Diagnoses Not on filedocumented in this encounter Care Teams Tapper Bit Relationship Specialty Start Date End Date Dewayne Carrington MD PCP - General 09/02/16 05/08/24 documented as of this encounter
--- OUTSIDE RECORDS SUMMARY | 2024-05-24 14:25 | XMS_ITS | Encounter Summary ---
Author Organization [facility] Address [facility] [place] [address] Care Team Providers Care Glost Kiln Placer Name Role Phone Dewayne Carrington MD Primary Care Provider [phone] Encounter Details Date Type Department Care Team ([facility] st Contact Info) Description 09/18/2020 1:00 PM EDT Office Visit Cardiology at [address] [address] David Garner PA [facility] [place] [address] Sustained VT (ventricular tachycardia); ICD (implantable cardioverter-defibril [...] PM EDT Cardiac Device Interrogation Marquez Hendrix [id number] 09/18/2020 History: Mr. Hendrix is a pleasant [...] electrode: Guidant Dextrus Model# 4126-53 cm Serial# [id number], implanted 04/17/2014 ?? Bipolar, steroid-tipped, active-fixation IS-1 lead ?? Access: Axillary vein ?? Location Right atrial appendage ?? Old Ventricular electrode: [place] [employer] [place] Model# 0292 Serial# [id number] ?? Bipolar, steroid-tipped, active-fixation DF-4 lead ?? Access: Axillary vein ?? Location: Right ventricular apex ?? Implanted: 01/10/2014 ?? Pulse generator: [employer] Incepta Model# E162 Serial# [id number] ?? DDDR ICD ?? Location: Subcutaneous Diagnostics [...] would prefer to have it done at [facility]). MAXIMO Avila 09/18/2020 documented in this encounter Miscellaneous Notes * Addendum Note - David Garner PA - 09/18/2020 1:00 PM EDTAddended by: DAVID GARNER on: 10/02/2020 11:11 PM Modules accepted: Orders documented in this encounter Plan of Treatment Upcoming Encounters Date Type Department Care Team (Late st Contact Info) Description 06/15/2024 10:00 AM EST Hospital Encounter [place] [address] Arrived 08/09/2024 10:00 AM EDT Hospital Encounter [place] [address] Arrived documented as of this encounter Visit Diagnoses Diagnosis Sustained VT (ventricular tachycardia) Paroxysmal ventricular tachycardia ICD (implantable cardioverter-defibrillator), dual, in situ Persistent atrial fibrillation Atrial fibrillation documented in this encounter Care Teams Glost Kiln Placer Relationship Specialty Start Date End Date Dewanye Carrington MD PCP - General 09/02/16 05/08/24 documented as of this encounter
--- OUTSIDE RECORDS SUMMARY | 2024-05-24 14:26 | XMS_ITS | Encounter Summary ---
Author Organization [facility] [place] [address] Care Team Providers Care Manager Books Name Role Phone Dewayne Carrington MD Primary Care Provider [phone] Encounter Details Date Type Department Care Team (Late st Contact Info) Description 01/05/2020 Orders Only Cardiology at [address] [address] Social History Tobacco Use Types Packs/Day Years [...] AM EST Hospital Encounter Non-[place] [address] Arrived 08/09/2024 10:00 AM EDT Hospital Encounter Non[place] [address] Arrived documented as of this encounter Procedures Procedure Name Priority Date/Time Associated Diagnosis Comments CARDIAC DEVICE CHECK - REMOTE SCHEDULED Routine 01/05/2020 12:41 AM EDT documented in this encounter Results * Cardiac device check - Remote Scheduled (01/05/2020 12:41 AM EDT) Date Time Interrogation Session IDCO Type Interrogation Session Remote Scheduled IDCO Clinic Name [facility] IDCO Battery Date Time of Measurements [id number] IDCO Battery Status Beginning of Service IDCO [...] Therapy Details Presenting EGM IDCO Episode Identifier [id number] IDCO Episode Date Time IDCO Episode Type Category Other IDCO Episode Vendor Type Category XANDER IDCO Episode Detection Interval Ventricular 1,000 ms IDCO Episode Duration 58 s IDCO Episode Detection And Therapy Details IDCO Episode Identifier [id number] IDCO Episode Date Time IDCO Episode Type Category Other IDCO Episode Vendor Type Category XANDER IDCO Episode Detection Interval Ventricular 984 ms IDCO Episode Duration 59 s IDCO Episode Detection And Therapy Details IDCO Episode Identifier [id number] IDCO Episode Date Time IDCO Episode Type Category Other IDCO Episode Vendor Type Category XANDER IDCO Episode Detection Interval Ventricular 1,000 ms IDCO Episode Duration 60 s IDCO Episode Detection And Therapy Details Q IDCO Episode Identifier [id number] IDCO Episode Date Time IDCO Episode Type Category Other IDCO Episode Vendor Type Category XANDER IDCO Episode Detection Interval Ventricular 1,111 ms IDCO Episode Duration 59 s IDCO Episode Detection And Therapy Details Q IDCO Episode Identifier [id number] IDCO Episode Date Time IDCO Episode Type Category Other IDCO Episode Vendor Type Category XANDER IDCO Episode Detection Interval Ventricular 968 ms IDCO Episode Duration 60 s IDCO Episode Detection And Therapy Details Q IDCO Episode Identifier [id number] IDCO Episode Date Time IDCO Episode Type Category Other IDCO Episode Vendor Type Category XANDER IDCO Episode Detection Interval Ventricular 1,000 ms IDCO Episode Duration 60 s IDCO Episode Detection And Therapy Details RYQ IDCO Episode Identifier [id number] IDCO Episode Date Time IDCO Episode Type Category Other IDCO Episode Vendor Type Category XANDER IDCO Episode Detection Interval Ventricular 1,017 ms IDCO Episode Duration 59 s IDCO Episode Detection And Therapy Details Q IDCO Episode Identifier [id number] IDCO Episode Date Time IDCO Episode Type Category Other IDCO Episode Vendor Type Category XANDER IDCO Episode Detection Interval Ventricular 1,091 ms IDCO Episode Duration 60 s IDCO Episode Detection And Therapy Details Q IDCO Episode Identifier [id number] IDCO Episode Date Time IDCO Episode Type Category Other IDCO Episode Vendor Type Category XANDER IDCO Episode Detection Interval Ventricular 1,111 ms IDCO Episode Duration 59 s IDCO Episode Detection And Therapy Details Q IDCO Episode Identifier [id number] IDCO Episode Date Time IDCO Episode Type [...] Episode Identifier [id number] IDCO Episode Date Time [id number] IDCO Episode Type Category VT IDCO Episode [...] E162 IDCO Implantable Pulse Generator Serial Number [id number] IDCO Implantable Pulse Generator Child Welfare Caseworker [place] [employer] IDCO Implantable Pulse Generator Implant Date 20140110 IDCO Implantable Lead Model 4136 IDCO Implantable Lead Serial Number [id number] IDCO Implantable Lead Child Welfare Caseworker Guidant IDCO Implantable Lead Implant Date 20130421 IDCO Implantable Lead Polarity Type Bipolar Lead IDCO Implantable Lead Location Right Atrium IDCO Implantable Lead Model 0292 IDCO Implantable Lead Serial Number [id number] IDCO Implantable Lead Child Welfare Caseworker [place] [employer] IDCO Implantable Lead Implant Date IDCO [...] IDCO Lead Channel Pacing Threshold Measurement Method [place] Operator Manual IDCO Lead Channel Pacing Threshold [...] IDCO Lead Channel Pacing Threshold Measurement Method [place] Operator Manual IDCO Lead Channel Pacing Threshold [...] filedocumented in this encounter Care Teams Manager Books Relationship Specialty Start Date End Date Dewayne Carrington MD PCP - General 09/02/16 05/08/24 documented as of this encounter
--- OUTSIDE RECORDS SUMMARY | 2024-05-24 14:26 | XMS_ITS | Encounter Summary ---
Author Organization [facility] Address [facility] [place] [address] Care Team Providers Care Belting And Webbing Inspector Name Role Phone Dewayne Carrington MD Primary Care Provider Encounter Details Date Type Department Care Team (Latest Contact Info) Description 08/23/2020 11:29 AM EDT - 08/23/2020 11:59 PM EDT Hospital Encounter [place] [address] Ta Negron MD [facility] [place] [address] V-tach Discharge Disposition: Home Social History Tobacco [...] 5 minutes as needed. Reported on 09/30/2016 BD ULTRA-FINE MINI PEN NEEDLE 31 gauge x 3/16 Needle INJECT ONCE DAILY DIRECTED 0 10/07/2018 05/14/2024 KlonoPIN 1 mg Tablet Take by mouth 3 times daily as needed. 10/05/2019 05/10/2024 vilazodone (Viibryd) 40 mg Tablet Take 40 mg by mouth daily. 03/18/2022 tacrolimus (PROTOPIC) 0.1 % Ointment Apply topically to buttocks twice daily for 6 weeks, repeat as needed 100 g 3 11/15/2019 05/10/2024 vortioxetine (BRINTELLIX) 10 mg Tablet Take 15 mg by mouth daily (after breakfast). 09/18/2020 metoprolol succinate (TOPROL-XL) 25 mg Tablet Sustained Release 24 hr Take 50 mg by mouth daily. Per pt 09/18/2020 aspirin 81 mg Tablet, Delayed Release (E.C.) [...] AM EST Hospital Encounter [place] [address] Arrived 08/09/2024 10:00 AM EDT Hospital Encounter [place] [address] Arrived documented as of this encounter Procedures Procedure Name Priority Date/Time Associated Diagnosis Comments ICD INTERROGATION 3 MONTH Routine 08/23/2020 11:31 AM EDT V-tach documented in this encounter Results * ICD INTERROGATION 3 MONTH (08/23/2020 11:31 AM EDT) Anatomical Region Laterality Modality Other Narrative 08/23/2020 11:45 AM EDT Cardiac Device Remote Monitoring Report Summary Friend Traveler Latitude 08/23/20 Device: ICD Model: INCEPTA Battery: [...] tachycardia documented in this encounter Care Teams Belting And Webbing Inspector Relationship Specialty Start Date End Date Raser, Dewayne, MD PCP - General 09/02/16 05/08/24 documented as of this encounter
--- OUTSIDE RECORDS SUMMARY | 2024-05-24 14:26 | XMS_ITS | Encounter Summary ---
Author Organization [facility] [place] [address] Care Team Providers Care Shopfitter Name Role Phone Dewayne Carrington MD Primary Care Provider [phone] Encounter Details Date Type Department Care Team (Late st Contact Info) Description 2020 Orders Only Cardiology at [address] [address] Social History Tobacco Use Types Packs/Day Years [...] AM EST Hospital Encounter Non-Invasive [place] [address] Arrived 08/09/2024 10:00 AM EDT Hospital Encounter Non-Invasive [place] [address] Arrived documented as of this encounter Procedures Procedure Name Priority Date/Time Associated Diagnosis Comments CARDIAC DEVICE CHECK - REMOTE DEVICE INITIATED Routine 2020 12:42 AM EST documented in this encounter Results * Cardiac device check - Remote Device Initiated (2020 12:42 AM EST) Date Time Interrogation Session IDCO [...] Date Time Start 20200523 IDCO Episode Statistic Date Time End 20200525 IDCO [place] Setting [...] E162 IDCO Implantable Pulse Generator Serial Number [id number] IDCO Implantable Pulse Generator Interior Design Project Manager [place] [employer] IDCO Implantable Pulse Generator Implant Date 20140110 IDCO Implantable Lead Model 4136 IDCO Implantable Lead Serial Number [id number] IDCO Implantable Lead Interior Design Project Manager Guidant IDCO Implantable Lead Implant Date 20130421 IDCO Implantable Lead Polarity Type Bipolar Lead IDCO Implantable Lead Location Right Atrium IDCO Implantable Lead Model 0292 IDCO Implantable Lead Serial Number [id number] IDCO Implantable Lead Interior Design Project Manager [place] [employer] IDCO Implantable Lead Implant Date IDCO [...] IDCO Lead Channel Pacing Threshold Measurement Method Long Winder Tender Manual IDCO Lead Channel Pacing Threshold [...] IDCO Lead Channel Pacing Threshold Measurement Method Long Winder Tender Manual IDCO Lead Channel Pacing Threshold [...] on filedocumented in this encounter Care Teams Shopfitter Relationship Specialty Start Date End Date Dewayne Carrington MD PCP - General 09/02/16 05/08/24 documented as of this encounter
--- OUTSIDE RECORDS SUMMARY | 2024-05-24 14:26 | XMS_ITS | Encounter Summary ---
Author Organization [facility] Address [facility] [place] [address] Care Team Providers Care Manager Title Name Role Phone Dewayne Carrington MD Primary Care Provider [phone] Encounter Details Date Type Department Care Team (Latest Contact Info) Description 01/05/2020 10:49 AM EDT - 01/05/2020 11:59 PM EDT Hospital Encounter Non-Invasive [place] [address] Irena Daly MD [facility] [place] [address] Ventricular tachycardia Discharge Disposition: Home Social History [...] AM EST Hospital Encounter Non-Invasive [place] [address] Arrived 08/09/2024 10:00 AM EDT Hospital Encounter Non-Invasive [place] [address] Arrived documented as of this encounter Procedures [...] pdf document Date of transmission: 01/05/2020 Device 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
--- OUTSIDE RECORDS SUMMARY | 2024-05-24 14:26 | XMS_ITS | Encounter Summary ---
Author Organization [facility] [place] [address] Care Team Providers Care Desilverizer Name Role Phone Dewayne Carrington MD Primary Care Provider [phone] Encounter Details Date Type Department Care Team (Late st Contact Info) Description 04/16/2020 Orders Only Cardiology at [address] [address] Social History Tobacco Use Types Packs/Day Years [...] AM EST Hospital Encounter [place] [address] Arrived 08/09/2024 10:00 AM EDT Hospital Encounter [place] [address] Arrived documented as of this encounter Procedures [...] PMC IDCO Battery Date Time of Measurements [id number] IDCO Battery Status Beginning of Service IDCO Battery Remaining Longevity 42 mo IDCO Battery Remaining Percentage 51 % IDCO Capacitor Last Charge Date Time IDCO Capacitor Charge Time 11.1 s IDCO Capacitor Charge Type Reformation IDCO Capacitor Last Charge Date Time [id number] IDCO Capacitor Charge Time 3.8 s IDCO Capacitor Charge Energy 21 J IDCO Capacitor Charge Type Shock IDCO Episode Identifier APM-49 IDCO Episode Date Time [id number] IDCO Episode Type Category Periodic EGM IDCO Episode Vendor Type Category APMRT IDCO Episode Detection And Therapy Details Presenting EGM IDCO Episode Identifier V-2171 IDCO Episode Date Time [id number] IDCO Episode Type Category VT IDCO Episode Vendor Type Category NSVT IDCO Episode Type Induced Flag NO IDCO Episode Detection Interval Ventricular 395 ms IDCO Episode Duration 8 s IDCO Episode Detection And Therapy Details NonSustV IDCO Episode Identifier V-2170 IDCO Episode Date Time [id number] IDCO Episode Type Category VT IDCO Episode Vendor Type Category NSVT IDCO Episode Type Induced Flag NO IDCO Episode Detection Interval Ventricular 395 ms IDCO Episode Duration 9 s IDCO Episode Detection And Therapy Details NonSustV IDCO Episode Identifier V-2169 IDCO Episode Date Time [id number] IDCO Episode Type Category VT IDCO Episode Vendor Type Category NSVT IDCO Episode Type Induced Flag NO IDCO Episode Detection Interval Ventricular 380 ms IDCO Episode Duration 8 s IDCO Episode Detection And Therapy Details NonSustV IDCO Episode Identifier V-2168 IDCO Episode Date Time [id number] IDCO Episode Type Category VT IDCO Episode Vendor Type Category NSVT IDCO Episode Type Induced Flag NO IDCO Episode Detection Interval Ventricular 385 ms IDCO Episode Duration 8 s IDCO Episode Detection And Therapy Details NonSustV IDCO Episode Identifier IDCO Episode Date Time [id number] IDCO Episode Type Category VT IDCO Episode Vendor Type Category NSVT IDCO Episode Type Induced Flag NO IDCO Episode Detection Interval Ventricular 382 ms IDCO Episode Duration 7 s IDCO Episode Detection And Therapy Details NonSustV IDCO Episode Identifier V-2167 IDCO Episode Date Time [id number] IDCO Episode Type Category VT IDCO Episode Vendor Type Category NSVT IDCO Episode Type Induced Flag NO IDCO Episode Detection Interval Ventricular 380 ms IDCO Episode Duration 7 s IDCO Episode Detection And Therapy Details NonSustV IDCO Episode Identifier V-2166 IDCO Episode Date Time [id number] IDCO Episode Type Category VT IDCO Episode Vendor Type Category NSVT IDCO Episode Type Induced Flag NO IDCO Episode Detection Interval Ventricular 387 ms IDCO Episode Duration 8 s IDCO Episode Detection And Therapy Details NonSustV IDCO Episode Identifier V-2165 IDCO Episode Date Time [id number] IDCO Episode Type Category VT IDCO Episode Vendor Type Category NSVT IDCO Episode Type Induced Flag NO IDCO Episode Detection Interval Ventricular 392 ms IDCO Episode Duration 8 s IDCO Episode Detection And Therapy Details NonSustV IDCO Episode Identifier V-2163 IDCO Episode Date Time [id number] IDCO Episode Type Category VT IDCO Episode Vendor Type Category NSVT IDCO Episode Type Induced Flag NO IDCO Episode Detection Interval Ventricular 385 ms IDCO Episode Duration 8 s IDCO Episode Detection And Therapy Details NonSustV IDCO Episode Identifier V-2162 IDCO Episode Date Time [id number] IDCO Episode Type Category VT IDCO Episode Vendor Type Category NSVT IDCO Episode Type Induced Flag NO IDCO Episode Detection Interval Ventricular 390 ms IDCO Episode Duration 9 s IDCO Episode Detection And Therapy Details NonSustV IDCO Episode Identifier ATR-432 IDCO Episode Date Time [id number] IDCO Episode Type Category AT/AF IDCO Episode [...] E162 IDCO Implantable Pulse Generator Serial Number [id number] IDCO Implantable Pulse Generator Advertisement Compositor [place] [employer] IDCO Implantable Pulse Generator Implant Date 20140110 IDCO Implantable Lead Model 4136 IDCO Implantable Lead Serial Number [id number] IDCO Implantable Lead Advertisement Compositor Guidant IDCO Implantable Lead Implant Date 20130421 IDCO Implantable Lead Polarity Type Bipolar Lead IDCO Implantable Lead Location Right Atrium IDCO Implantable Lead Model 0292 IDCO Implantable Lead Serial Number [id number] IDCO Implantable Lead Advertisement Compositor [place] [employer] IDCO Implantable Lead Implant Date IDCO [...] Lead Channel Pacing Threshold Measurement Method Career Services Officer Manual IDCO Lead Channel Pacing Threshold [...] Lead Channel Pacing Threshold Measurement Method Career Services Officer Manual IDCO Lead Channel Pacing Threshold [...] on filedocumented in this encounter Care Teams Desilverizer Relationship Specialty Start Date End Date Dewayne Carrington MD PCP - General 09/02/16 05/08/24 documented as of this encounter
--- OUTSIDE RECORDS SUMMARY | 2024-05-24 14:26 | XMS_ITS | Encounter Summary ---
Author Organization [facility] Address [facility] [place] [address] Care Team Providers Care Coring Machine Operator Name Role Phone Dewayne Carrington MD Primary Care Provider [phone] Encounter Details Date Type Department Care Team ([facility] st Contact Info) Description 09/12/2020 [place] [address] Loraine Santacruz, HYDRAULIC RIVETER [facility] [place] [address] Social History Tobacco Use Types Packs/Day Years [...] this encounter Progress Notes * Loraine Santacruz, HYDRAULIC RIVETER - 09/12/2020 7:58 AM EDT Cardiac Device Remote Monitoring Report Summary [facility] Lat[facility] 09/12/20 Device: ICD Model: INCEPTA Battery: [...] AM EST Hospital Encounter Non-[place] [address] Arrived 08/09/2024 10:00 AM EDT Hospital Encounter Non-[place] [address] Arrived documented as of this encounter Visit Diagnoses Not on filedocumented in this encounter Care Teams Coring Machine Operator Relationship Specialty Start Date End Date Dewayne Carrington MD PCP - General 09/02/16 05/08/24 documented as of this encounter
--- OUTSIDE RECORDS SUMMARY | 2024-05-24 14:26 | XMS_ITS | Encounter Summary ---
Author Organization [facility] Address [facility] [place] [address] Care Team Providers Care Tobacco Packing Machine Operator Name Role Phone Dewayne Carrington MD Primary Care Provider [phone] Encounter Details Date Type Department Care Team (Late st Contact Info) Description 03/16/2020 Notes Only Cardiology at [address] [address] Edy Burns PA [facility] [place] [address] Social History Tobacco Use Types Packs/Day Years [...] Electronic Device Remote Monitoring Interpretation Marquez Hendrix [id number] Transmission Date: 03/16/2020 Device Type: ICD Generator: [employer] Incepta E162 SN: [id number] Implanted: 04/17/14 Battery Status: 5 years Charge Time: 11 sec Atrial lead status: Amplitude: 5.4 mV Impedance: 797 ? Threshold: 0.7 V @ 0.5 ms Right ventricular lead status: Amplitude: 12.8 mV Impedance: 691 ? Threshold: 0.6 V @ 0.5 ms Shock Impedance: 88 ? Atrial Pacin% Ventricular Pacin% Alerts: Mar 15, 2020 19:00 Atrial Arrhythmia [place] of at least 24.0 hours in a [...] functioning device Edy Burns PA-C 03/16/2020 Pager [phone] documented in this encounter Plan of Treatment Upcoming Encounters Date Type Department Care Team (Late st Contact Info) Description 06/15/2024 10:00 AM EST Hospital Encounter Non-[place] [address] Arrived 08/09/2024 10:00 AM EDT Hospital Encounter Non-[place]vasive [place] [address] Arrived documented as of this encounter Visit Diagnoses Not on filedocumented in this encounter Care Teams Tobacco Packing Machine Operator Relationship Specialty Start Date End Date Dewayne Carrington MD PCP - General 09/02/16 05/08/24 documented as of this encounter
--- OUTSIDE RECORDS SUMMARY | 2024-05-24 14:26 | XMS_ITS | Encounter Summary ---
Author Organization [facility] [place] [address] Care Team Providers Care Waste Management Engineer Name Role Phone Dewayne Carrington MD Primary Care Provider [phone] Encounter Details Date Type Department Care Team (Late st Contact Info) Description 08/21/2020 Orders Only Cardiology at [address] [address] Social History Tobacco Use Types Packs/Day Years [...] AM EST Hospital Encounter Non-[place] [address] Arrived 08/09/2024 10:00 AM EDT Hospital Encounter Non[place] [address] Arrived documented as of this encounter Procedures [...] PMC IDCO Battery Date Time of Measurements [id number] IDCO Battery Status Beginning of Service IDCO Battery Remaining Longevity 42 mo IDCO Battery Remaining Percentage 47 % IDCO Capacitor Last Charge Date Time [id number] IDCO Capacitor Charge Time 11.2 s IDCO Capacitor Charge Type Reformation IDCO Capacitor Last Charge Date Time [id number] IDCO Capacitor Charge Time 3.8 s IDCO [...] And Therapy Details ATR IDCO Episode Identifier V-2176 IDCO Episode Date Time IDCO Episode Type Category VT IDCO Episode Vendor Type Category VT-1 IDCO Episode Type Induced Flag NO IDCO Episode Detection Interval Ventricular 382 ms IDCO Episode Duration 47 s IDCO Episode Detection And Therapy Details VT-1 ATPx3 IDCO Episode Identifier V-2176 IDCO Episode Date Time [id number] IDCO Episode Type Category VT IDCO Episode [...] E162 IDCO Implantable Pulse Generator Serial Number [id number] IDCO Implantable Pulse Generator Tax Compliance Manager [place] Scientific IDCO Implantable Pulse Generator Implant Date 20140110 IDCO Implantable Lead Model 4136 IDCO Implantable Lead Serial Number [id number] IDCO Implantable Lead Tax Compliance Manager Guidant IDCO Implantable Lead Implant Date 20130421 IDCO Implantable Lead Polarity Type Bipolar Lead IDCO Implantable Lead Location Right Atrium IDCO Implantable Lead Model 0292 IDCO Implantable Lead Serial Number [id number] IDCO Implantable Lead Tax Compliance Manager [place] Scientific IDCO Implantable Lead Implant Date [...] IDCO Lead Channel Pacing Threshold Measurement Method Detective [place] Manual IDCO Lead Channel Pacing Threshold Polarity [...] IDCO Lead Channel Pacing Threshold Measurement Method Detective [place] Manual IDCO Lead Channel Pacing Threshold Polarity [...] filedocumented in this encounter Care Teams Waste Management Engineer Relationship Specialty Start Date End Date Dewayne Carrington MD PCP - General 09/02/16 05/08/24 documented as of this encounter
--- OUTSIDE RECORDS SUMMARY | 2024-05-24 14:26 | XMS_ITS | Encounter Summary ---
Author Organization [facility] [place] [address] Care Team Providers Care Department Chairperson Name Role Phone Dewayne Carrington MD Primary Care Provider [phone] Encounter Details Date Type Department Care Team (Late st Contact Info) Description 08/23/2020 Orders Only Cardiology at [address] [address] Social History Tobacco Use Types Packs/Day Years [...] AM EST Hospital Encounter [place] [address] Arrived 08/09/2024 10:00 AM EDT Hospital Encounter [place] [address] Arrived documented as of this encounter Procedures [...] % IDCO Capacitor Last Charge Date Time [id number] IDCO Capacitor Charge Time 11.2 s IDCO [...] E162 IDCO Implantable Pulse Generator Serial Number [id number] IDCO Implantable Pulse Generator Educational Paraprofessional [place] [employer] IDCO Implantable Pulse Generator Implant Date 20140110 IDCO Implantable Lead Model 4136 IDCO Implantable Lead Serial Number [id number] IDCO Implantable Lead Educational Paraprofessional Guidant IDCO Implantable Lead Implant Date 20130421 IDCO Implantable Lead Polarity Type Bipolar Lead IDCO Implantable Lead Location Right Atrium IDCO Implantable Lead Model 0292 IDCO Implantable Lead Serial Number [id number] IDCO Implantable Lead Educational Paraprofessional [place] Scientific IDCO Implantable Lead Implant Date IDCO [...] IDCO Lead Channel Pacing Threshold Measurement Method Inpatient Services Rn Manual IDCO Lead Channel Pacing Threshold [...] IDCO Lead Channel Pacing Threshold Measurement Method Inpatient Services Rn Manual IDCO Lead Channel Pacing Threshold [...] on filedocumented in this encounter Care Teams Department Chairperson Relationship Specialty Start Date End Date Dewayne Carrington MD PCP - General 09/02/16 05/08/24 documented as of this encounter
--- OUTSIDE RECORDS SUMMARY | 2024-05-24 14:26 | XMS_ITS | Encounter Summary ---
Author [facility] [address] Care Team Providers Care Telephone Repairer Name Role Phone Dewayne Carrington MD Primary Care Provider [phone] Encounter Details Date Type Department Care Team (Late st Contact Info) Description 09/12/2020 Orders Only Cardiology at [address] [address] Social History Tobacco Use Types Packs/Day Years [...] Hospital Encounter Non[place] [address] Arrived 08/09/2024 10:00 AM EDT Hospital Encounter Non[place] [address] Arrived documented as of this encounter Procedures [...] PMC IDCO Battery Date Time of Measurements [id number] IDCO Battery Status Beginning of Service IDCO Battery Remaining Longevity 42 mo IDCO Battery Remaining Percentage 46 % IDCO Capacitor Last Charge Date Time [id number] IDCO Capacitor Charge Time 11.2 s IDCO Capacitor Charge Type Reformation IDCO Capacitor Last Charge Date Time [id number] IDCO Capacitor Charge Time 3.8 s IDCO Capacitor Charge Energy 21 J IDCO Capacitor Charge Type Shock IDCO Episode Identifier APM-54 IDCO Episode Date Time IDCO Episode Type Category Periodic EGM IDCO Episode Vendor Type Category APMRT IDCO Episode Detection And Therapy Details Presenting EGM IDCO Episode Identifier V-6 IDCO Episode Date [...] And Therapy Details ATR IDCO Episode Identifier V-5 IDCO Episode Date Time IDCO Episode Type [...] And Therapy Details NonSustV IDCO Episode Identifier -2181 IDCO Episode Date Time IDCO Episode Type [...] And Therapy Details NonSustV IDCO Episode Identifier V-2178 IDCO Episode Date Time IDCO Episode Type [...] E162 IDCO Implantable Pulse Generator Serial Number [id number] IDCO Implantable Pulse Generator Sheet Metal Installer [place] Scientific IDCO Implantable Pulse Generator Implant Date 20140110 IDCO Implantable Lead Model 4136 IDCO Implantable Lead Serial Number [id number] IDCO Implantable Lead Sheet Metal Installer Guidant IDCO Implantable Lead Implant Date 20130421 IDCO Implantable Lead Polarity Type Bipolar Lead IDCO Implantable Lead Location Right Atrium IDCO Implantable Lead Model 0292 IDCO Implantable Lead Serial Number [id number] IDCO Implantable Lead Sheet Metal Installer [place] [employer] IDCO Implantable Lead Implant Date 881553 IDCO Implantable Lead Location Right Ventricle IDCO Lead Channel Measurements Date and Time Start 20190921 IDCO Lead Channel Measurements Date and Time End 20200911 IDCO Lead Channel Sensing Intrinsic Amplitude Mean 3.7 mV IDCO Lead Channel Sensing Polarity Bipolar IDCO Lead Channel Pacing Threshold Amplitude 0.7 V IDCO Lead Channel Pacing Threshold Pulse Width 0.5 ms IDCO Lead Channel Pacing Threshold Measurement Method [place] Manual IDCO Lead Channel Pacing Threshold Polarity [...] IDCO Lead Channel Pacing Threshold Measurement Method [place] Manual IDCO Lead Channel Pacing Threshold Polarity [...] on filedocumented in this encounter Care Teams Telephone Repairer Relationship Specialty Start Date End Date Dewayne Carrington MD PCP - General 09/02/16 05/08/24 documented as of this encounter
--- OUTSIDE RECORDS SUMMARY | 2024-05-24 14:26 | XMS_ITS | Encounter Summary ---
Author Organization [facility] [place] [address] Care Team Providers Care Tour Bus Driver Name Role Phone Dewayne Carrington MD Primary Care Provider [phone] Encounter Details Date Type Department Care Team (Late st Contact Info) Description 09/14/2020 Orders Only Cardiology at [address] [address] Social History Tobacco Use Types Packs/Day Years [...] AM EST Hospital Encounter [place] [address] Arrived 08/09/2024 10:00 AM EDT Hospital Encounter [place] [address] Arrived documented as of this encounter Procedures [...] PMC IDCO Battery Date Time of Measurements [id number] IDCO Battery Status Beginning of Service IDCO Battery Remaining Longevity 42 mo IDCO Battery Remaining Percentage 46 % IDCO Capacitor Last Charge Date Time [id number] IDCO Capacitor Charge Time 11.2 s IDCO Capacitor Charge Type Reformation IDCO Capacitor Last Charge Date Time [id number] IDCO Capacitor Charge Time 3.8 s IDCO Capacitor Charge Energy 21 J IDCO Capacitor Charge Type Shock IDCO Episode Identifier APM-55 IDCO Episode Date Time IDCO Episode Type [...] Episode Identifier ATR-442 IDCO Episode Date Time [id number] IDCO Episode Type Category AT/AF IDCO Episode [...] Episode Identifier ATR-439 IDCO Episode Date Time [id number] IDCO Episode Type Category AT/AF IDCO Episode Vendor Type Category ATR IDCO Episode Detection Interval Atrial 184 ms IDCO Episode Duration IDCO Episode Detection And Therapy Details ATR IDCO Episode Identifier V-2187 IDCO Episode Date Time [id number] IDCO Episode Type Category VT IDCO Episode Vendor Type Category VT-1 IDCO Episode Type Induced Flag NO IDCO Episode Detection Interval Ventricular 385 ms IDCO Episode Duration 127 s IDCO Episode Detection And Therapy Details VT-1 ATPx9 IDCO Episode Identifier V-218 IDCO Episode Date Time IDCO Episode Type Category VT IDCO Episode Vendor Type Category NSVT IDCO Episode Type Induced Flag NO IDCO Episode Detection Interval Ventricular 377 ms IDCO Episode Duration 6 s IDCO Episode Detection And Therapy Details NonSustV IDCO Episode Identifier ATR-438 IDCO Episode Date Time [id number] IDCO Episode Type Category AT/AF IDCO Episode [...] E162 IDCO Implantable Pulse Generator Serial Number [id number] IDCO Implantable Pulse Generator Cafe Worker [place] [employer] IDCO Implantable Pulse Generator Implant Date 20140110 IDCO Implantable Lead Model 4136 IDCO Implantable Lead Serial Number [id number] IDCO Implantable Lead Cafe Worker Guidant IDCO Implantable Lead Implant Date 20130421 IDCO Implantable Lead Polarity Type Bipolar Lead IDCO Implantable Lead Location Right Atrium IDCO Implantable Lead Model 0292 IDCO Implantable Lead Serial Number [id number] IDCO Implantable Lead Cafe Worker [place] [employer] IDCO Implantable Lead Implant Date IDCO [...] IDCO Lead Channel Pacing Threshold Measurement Method Basic Combatant Swimmer Manual IDCO Lead Channel Pacing Threshold Polarity [...] IDCO Lead Channel Pacing Threshold Measurement Method Basic Combatant Swimmer Manual IDCO Lead Channel Pacing Threshold Polarity [...] on filedocumented in this encounter Care Teams Tour Bus Driver Relationship Specialty Start Date End Date Dewayne Carrington MD PCP - General 09/02/16 05/08/24 documented as of this encounter
--- OUTSIDE RECORDS SUMMARY | 2024-05-24 14:26 | XMS_ITS | Encounter Summary ---
Author Organization [facility] [address] Care Team Providers Care Bridge Painter Name Role Phone Dewayne Carrington MD Primary Care Provider [phone] Encounter Details Date Type Department Care Team (Late st Contact Info) Description 02/07/2020 Orders Only Cardiology at [address] [address] Social History Tobacco Use Types Packs/Day Years [...] AM EST Hospital Encounter Non-In[place] [address] Arrived 08/09/2024 10:00 AM EDT Hospital Encounter Non-[place]vasive [place] [address] Arrived documented as of this encounter Procedures [...] Episode Identifier [id number] IDCO Episode Date Time IDCO Episode Type Category AT/AF IDCO Episode Vendor Type Category ATR IDCO Episode Detection Interval Atrial 279 ms IDCO Episode Duration 73 s IDCO Episode Detection And Therapy Details ATR IDCO Episode Identifier [id number] IDCO Episode Date Time IDCO Episode Type Category Other IDCO Episode Vendor Type Category XANDER IDCO Episode Detection Interval Ventricular 938 ms IDCO Episode Duration 54 s IDCO Episode Detection And Therapy Details [facility] IDCO Episode [id number] ID[facility] Episode Date Time [id number] IDCO Episode Type Category Other IDCO Episode Vendor Type Category XANDER IDCO Episode Detection Interval Ventricular 984 ms IDCO Episode Duration 57 s IDCO Episode Detection And Therapy Details [facility] IDCO Episode Identifier [id number] IDCO Episode Date Time IDCO Episode Type Category Other IDCO Episode Vendor Type Category XANDER IDCO Episode Detection Interval Ventricular 1,091 ms IDCO Episode Duration 57 s IDCO Episode Detection And Therapy Details [facility] IDCO Episode Identifier [id number] IDCO Episode Date Time IDCO Episode Type Category Other IDCO Episode Vendor Type Category XANDER IDCO Episode Detection Interval Ventricular 1,000 ms IDCO Episode Duration 58 s IDCO Episode Detection And Therapy Details [facility] IDCO Episode Identifier [id number] IDCO Episode Date Time IDCO Episode Type Category Other IDCO Episode Vendor Type Category XANDER IDCO Episode Detection Interval Ventricular 984 ms IDCO Episode Duration 57 s IDCO Episode Detection And Therapy Details [place] IDCO Episode Identifier [id number] IDCO Episode Date Time IDCO Episode Type Category Other IDCO Episode Vendor Type Category XANDER IDCO Episode Detection Interval Ventricular 1,071 ms IDCO Episode Duration 57 s IDCO Episode Detection And Therapy Details [facility] IDCO Episode Identifier [id number] IDCO Episode Date Time IDCO Episode Type Category Other IDCO Episode Vendor Type Category XANDER IDCO Episode Detection Interval Ventricular 1,017 ms IDCO Episode Duration 54 s IDCO Episode Detection And Therapy Details [facility] IDCO Episode Identifier [id number] IDCO Episode Date Time IDCO Episode Type Category Other IDCO Episode Vendor Type Category XANDER IDCO Episode Detection Interval Ventricular 952 ms IDCO Episode Duration 56 s IDCO Episode Detection And Therapy Details [facility] IDCO Episode Identifier [id number] IDCO Episode Date Time IDCO Episode Type Category Other IDCO Episode Vendor Type Category XANDER IDCO Episode Detection Interval Ventricular 952 ms IDCO Episode Duration 57 s IDCO Episode Detection And Therapy Details [facility] IDCO Episode Identifier [id number] IDCO Episode Date Time IDCO Episode Type Category Other IDCO Episode Vendor Type Category XANDER IDCO Episode Detection Interval Ventricular 1,091 ms IDCO Episode Duration 57 s IDCO Episode Detection And Therapy Details [facility] IDCO Episode Identifier ATR-427 IDCO Episode Date Time [id number] IDCO Episode Type Category AT/AF IDCO Episode Vendor Type Category ATR IDCO Episode Detection Interval Atrial 270 ms IDCO Episode Duration 39,081 s IDCO Episode Detection And Therapy Details ATR IDCO Episode Identifier ATR-426 IDCO Episode Date Time [id number] IDCO Episode Type Category AT/AF IDCO Episode Vendor Type Category ATR IDCO Episode Detection Interval Atrial 247 ms IDCO Episode Duration 610 s IDCO Episode Detection And Therapy Details ATR IDCO Episode Identifier ATR-425 IDCO Episode Date Time [id number] IDCO Episode Type Category AT/AF IDCO Episode Vendor Type Category ATR IDCO Episode Detection Interval Atrial 882 ms IDCO Episode Duration 2 s IDCO Episode Detection And Therapy Details ATR IDCO Episode Identifier ATR-424 IDCO Episode Date Time [id number] IDCO Episode Type Category AT/AF IDCO Episode Vendor Type Category ATR IDCO Episode Detection Interval Atrial 833 ms IDCO Episode Duration 2 s IDCO Episode Detection And Therapy Details ATR IDCO Episode Identifier ATR-423 IDCO Episode Date Time [id number] IDCO Episode Type Category AT/AF IDCO Episode [...] Episode Identifier ATR-421 IDCO Episode Date Time [id number] IDCO Episode Type Category AT/AF IDCO Episode Vendor Type Category ATR IDCO Episode Detection Interval Atrial 896 ms IDCO Episode Duration 1 s IDCO Episode Detection And Therapy Details ATR IDCO Episode Identifier [id number] IDCO Episode Date Time [id number] IDCO Episode Type Category VT IDCO Episode Vendor Type Category NSVT IDCO Episode Type Induced Flag NO IDCO Episode Detection Interval Ventricular 432 ms IDCO Episode Duration 8 s IDCO Episode Detection And Therapy Details NonSustV IDCO Episode Identifier ATR-420 IDCO Episode Date Time [id number] IDCO Episode Type Category AT/AF IDCO Episode Vendor Type Category ATR IDCO Episode Detection Interval Atrial 234 ms IDCO Episode Duration 17,622 s IDCO Episode Detection And Therapy Details ATR IDCO Episode Identifier ATR-419 IDCO Episode Date Time [id number] IDCO Episode Type Category AT/AF IDCO Episode Vendor Type Category ATR IDCO Episode Detection Interval Atrial 698 ms IDCO Episode Duration 5 s IDCO Episode Detection And Therapy Details ATR IDCO Episode Identifier [id number] IDCO Episode Date Time [id number] IDCO Episode Type Category VT IDCO Episode [...] IDCO Episode Identifier IDCO Episode Date Time [id number] IDCO Episode Type Category VT IDCO Episode Vendor Type Category NSVT IDCO Episode Type Induced Flag NO IDCO Episode Detection Interval Ventricular 387 ms IDCO Episode Duration 17 s IDCO Episode Detection And Therapy Details NonSustV IDCO Episode Identifier IDCO Episode Date Time [id number] IDCO Episode Type Category VT IDCO Episode [...] E162 IDCO Implantable Pulse Generator Serial Number [id number] IDCO Implantable Pulse Generator Italian Lecturer [place] [employer] IDCO Implantable Pulse Generator Implant Date 20140110 IDCO Implantable Lead Model 4136 IDCO Implantable Lead Serial Number [id number] IDCO Implantable Lead Italian Lecturer Guidant IDCO Implantable Lead Implant Date 20130421 IDCO Implantable Lead Polarity Type Bipolar Lead IDCO Implantable Lead Location Right Atrium IDCO Implantable Lead Model 0292 IDCO Implantable Lead Serial Number [id number] IDCO Implantable Lead Italian Lecturer [place] [employer] IDCO Implantable Lead Implant Date [...] IDCO Lead Channel Pacing Threshold Measurement Method Legal Aide Manual IDCO Lead Channel Pacing Threshold Polarity [...] IDCO Lead Channel Pacing Threshold Measurement Method Legal Aide Manual IDCO Lead Channel Pacing Threshold Polarity [...] on filedocumented in this encounter Care Teams Bridge Painter Relationship Specialty Start Date End Date Dewayne Carrington MD PCP - General 09/02/16 05/08/24 documented as of this encounter
--- OUTSIDE RECORDS SUMMARY | 2024-05-24 14:26 | XMS_ITS | Encounter Summary ---
Author Organization [facility] [place] [address] Care Team Providers Care Carbon Brush Maker Name Role Phone Dewayne Carrington MD Primary Care Provider [phone] Encounter Details Date Type Department Care Team (Late st Contact Info) Description 03/16/2020 Orders Only Cardiology at [address] [address] Social History Tobacco Use Types Packs/Day Years [...] AM EST Hospital Encounter [place] [address] Arrived 08/09/2024 10:00 AM EDT Hospital Encounter Non[place] [address] Arrived documented as of this encounter Procedures [...] PMC IDCO Battery Date Time of Measurements [id number] IDCO Battery Status Beginning of Service IDCO Battery Remaining Longevity 60 mo IDCO Battery Remaining Percentage 70 % IDCO Capacitor Last Charge Date Time IDCO Capacitor Charge Time 11.0 s IDCO Capacitor Charge Type Reformation IDCO Capacitor Last Charge Date Time [id number] IDCO Capacitor Charge Time 3.8 s IDCO [...] And Therapy Details ATR IDCO Episode Identifier [id number] IDCO Episode Date Time [id number] IDCO Episode Type Category Other IDCO Episode Vendor Type Category XANDER IDCO Episode Detection Interval Ventricular 923 ms IDCO Episode Duration 45 s IDCO Episode Detection And Therapy Details IDCO Episode Identifier [id number] IDCO Episode Date Time [id number] IDCO Episode Type Category Other IDCO Episode Vendor Type Category XANDER IDCO Episode Detection Interval Ventricular 909 ms IDCO Episode Duration 54 s IDCO Episode Detection And Therapy Details IDCO Episode Identifier [id number] IDCO Episode Date Time [id number] IDCO Episode Type Category Other IDCO Episode Vendor Type Category XANDER IDCO Episode Detection Interval Ventricular 909 ms IDCO Episode Duration 53 s IDCO Episode Detection And Therapy Details IDCO Episode Identifier [id number] IDCO Episode Date Time [id number] IDCO Episode Type Category Other IDCO Episode Vendor Type Category XANDER IDCO Episode Detection Interval Ventricular 923 ms IDCO Episode Duration 54 s IDCO Episode Detection And Therapy Details [id number] IDCO Episode Date Time IDCO Episode Type Category Other IDCO Episode Vendor Type Category XANDER IDCO Episode Detection Interval Ventricular 909 ms IDCO Episode Duration 52 s IDCO Episode Detection And Therapy Details [facility] IDCO Episode Identifier [facility] IDCO Episode Date Time [id number] IDCO Episode Type Category Other IDCO Episode Vendor Type Category XANDER IDCO Episode Detection Interval Ventricular 896 ms IDCO Episode Duration 53 s IDCO Episode Detection And Therapy Details [facility] IDCO Episode Identifier [facility] IDCO Episode Date Time IDCO Episode Type Category Other IDCO Episode Vendor Type Category XANDER IDCO Episode Detection Interval Ventricular 909 ms IDCO Episode Duration 54 s IDCO Episode Detection And Therapy Details [facility] IDCO Episode Identifier [facility] IDCO Episode Date Time [id number] IDCO Episode Type Category Other IDCO Episode Vendor Type Category XANDER IDCO Episode Detection Interval Ventricular 968 ms IDCO Episode Duration 57 s IDCO Episode Detection And Therapy Details [facility] IDCO Episode Identifier [facility] IDCO Episode Date Time IDCO Episode Type Category Other IDCO Episode Vendor Type Category XANDER IDCO Episode Detection Interval Ventricular 923 ms IDCO Episode Duration 55 s IDCO Episode Detection And Therapy Details [facility] IDCO Episode Identifier [facility]-[id number] IDCO Episode Date Time IDCO Episode Type Category Other IDCO Episode Vendor Type Category XANDER IDCO Episode Detection Interval Ventricular 923 ms IDCO Episode Duration 54 s IDCO Episode Detection And Therapy Details [place] IDCO Episode Identifier [id number]-431 IDCO Episode Date Time [id number] IDCO Episode Type Category AT/AF IDCO Episode Vendor Type Category ATR IDCO Episode Detection Interval Atrial 299 ms IDCO Episode Duration 21,668 s IDCO Episode Detection And Therapy Details ATR IDCO Episode Identifier ATR-430 IDCO Episode Date Time [id number] IDCO Episode Type Category AT/AF IDCO Episode Vendor Type Category ATR IDCO Episode Detection Interval Atrial 267 ms IDCO Episode Duration 12 s IDCO Episode Detection And Therapy Details ATR IDCO Episode Identifier [id number] IDCO Episode Date Time [id number] IDCO Episode Type Category VT IDCO Episode [...] IDCO Episode Identifier IDCO Episode Date Time [id number] IDCO Episode Type Category VT IDCO Episode Vendor Type Category NSVT IDCO Episode Type Induced Flag NO IDCO Episode Detection Interval Ventricular 375 ms IDCO Episode Duration 6 s IDCO Episode Detection And Therapy Details NonSustV IDCO Episode Identifier IDCO Episode Date Time [id number] IDCO Episode Type Category VT IDCO Episode Vendor Type Category NSVT IDCO Episode Type Induced Flag NO IDCO Episode Detection Interval Ventricular 375 ms IDCO Episode Duration 6 s IDCO Episode Detection And Therapy Details NonSustV IDCO Episode Identifier IDCO Episode Date Time [id number] IDCO Episode Type Category VT IDCO Episode Vendor Type Category NSVT IDCO Episode Type Induced Flag NO IDCO Episode Detection Interval Ventricular 375 ms IDCO Episode Duration 7 s IDCO Episode Detection And Therapy Details NonSustV IDCO Episode Identifier IDCO Episode Date Time [id number] IDCO Episode Type Category VT IDCO Episode Vendor Type Category NSVT IDCO Episode Type Induced Flag NO IDCO Episode Detection Interval Ventricular 377 ms IDCO Episode Duration 5 s IDCO Episode Detection And Therapy Details NonSustV IDCO Episode Identifier IDCO Episode Date Time [id number] IDCO Episode Type Category VT IDCO Episode [...] IDCO Episode Identifier IDCO Episode Date Time [id number] IDCO Episode Type Category VT IDCO Episode Vendor Type Category NSVT IDCO Episode Type Induced Flag NO IDCO Episode Detection Interval Ventricular 382 ms IDCO Episode Duration 6 s IDCO Episode Detection And Therapy Details NonSustV IDCO Episode Identifier [id number] IDCO Episode Date Time IDCO Episode Type [...] Setting AT Mode Switch Mode VDIR IDCO [place] Setting AT Mode Switch Rate 170 {beats}/ [...] E162 IDCO Implantable Pulse Generator Serial Number [id number] IDCO Implantable Pulse Generator Operations Lead [place] [employer] IDCO Implantable Pulse Generator Implant Date 20140110 IDCO Implantable Lead Model 4136 IDCO Implantable Lead Serial Number [id number] IDCO Implantable Lead Operations Lead Guidant IDCO Implantable Lead Implant Date 20130421 IDCO Implantable Lead Polarity Type Bipolar Lead IDCO Implantable Lead Location Right Atrium IDCO Implantable Lead Model 0292 IDCO Implantable Lead Serial Number [id number] IDCO Implantable Lead Operations Lead [place] [employer] IDCO Implantable Lead Implant Date IDCO [...] Lead Channel Pacing Threshold Measurement Method Physical Science Teacher Manual IDCO Lead Channel Pacing Threshold [...] Lead Channel Pacing Threshold Measurement Method Physical Science Teacher Manual IDCO Lead Channel Pacing Threshold [...] on filedocumented in this encounter Care Teams Carbon Brush Maker Relationship Specialty Start Date End Date Dewayne Carrington MD PCP - General 09/02/16 05/08/24 documented as of this encounter
--- OUTSIDE RECORDS SUMMARY | 2024-05-24 14:26 | XMS_ITS | Encounter Summary ---
Author Organization [facility] Address [facility] [place] [address] Care Team Providers Care Inspector Canvas Products Name Role Phone Dewayne Carrington MD Primary Care Provider [phone] Encounter Details Date Type Department Care Team (Late st Contact Info) Description 08/21/2020 Notes Only Cardiology at [address] [address] Edy Torres PA [facility] [place] [address] Social History Tobacco Use Types Packs/Day Years [...] Remote Monitoring Interpretation Transmission Date: 08/21/2020 Device Business Affairs Manager and Type: [employer] dual lead ICD Battery Status: good; [...] AM EST Hospital Encounter Non-Invasive [place] [address] Arrived 08/09/2024 10:00 AM EDT Hospital Encounter Non-Invasive [place] [address] Arrived documented as of this encounter Visit Diagnoses Not on filedocumented in this encounter Care Teams Inspector Canvas Products Relationship Specialty Start Date End Date Dewayne Carrington MD PCP - General 09/02/16 05/08/24 documented as of this encounter
--- OUTSIDE RECORDS SUMMARY | 2024-05-24 14:27 | XMS_ITS | Encounter Summary ---
Author [facility] [place] [address] Care Team Providers Care Otr [employer] Driver Name Role Phone Dewayne Carrington MD Primary Care Provider [phone] Encounter Details Date Type Department Care Team (Late st Contact Info) Description 09/30/2019 Orders Only Cardiology at [address] [address] Social History Tobacco Use Types Packs/Day Years [...] EST Hospital Encounter Non-[place] [address] Arrived 08/09/2024 10:00 AM EDT Hospital Encounter Non-[place] [address] Arrived documented as of this encounter Procedures [...] PMC IDCO Battery Date Time of Measurements [id number] IDCO Battery Status Beginning of Service IDCO [...] And Therapy Details ATR IDCO Episode Identifier [id number] IDCO Episode Date Time IDCO Episode Type Category Other IDCO Episode Vendor Type Category XANDER IDCO Episode Detection Interval Ventricular 923 ms IDCO Episode Duration 56 s IDCO Episode Detection And Therapy Details Q IDCO Episode Identifier [id number] IDCO Episode Date Time [id number] IDCO Episode Type Category Other IDCO Episode Vendor Type Category XANDER IDCO Episode Detection Interval Ventricular 1,053 ms IDCO Episode Duration 59 s IDCO Episode Detection And Therapy Details Q IDCO Episode Identifier [id number] IDCO Episode Date Time [id number] IDCO Episode Type Category Other IDCO Episode Vendor Type Category XANDER IDCO Episode Detection Interval Ventricular 1,000 ms IDCO Episode Duration 58 s IDCO Episode Detection And Therapy Details Q IDCO Episode Identifier [id number] IDCO Episode Date Time [id number] IDCO Episode Type Category Other IDCO Episode Vendor Type Category XANDER IDCO Episode Detection Interval Ventricular 1,000 ms IDCO Episode Duration 60 s IDCO Episode Detection And Therapy [facility] Episode Identifier [id number] IDCO Episode Date Time IDCO Episode Type Category Other IDCO Episode Vendor Type Category XANDER IDCO Episode Detection Interval Ventricular 1,091 ms IDCO Episode Duration 59 s IDCO Episode Detection And Therapy Details [facility] IDCO Episode Identifier [id number] IDCO Episode Date Time IDCO Episode Type Category Other IDCO Episode Vendor Type Category XANDER IDCO Episode Detection Interval Ventricular 968 ms IDCO Episode Duration 58 s IDCO Episode Detection And Therapy Details [facility] IDCO Episode Identifier [id number] IDCO Episode Date Time IDCO Episode Type Category Other IDCO Episode Vendor Type Category XANDER IDCO Episode Detection Interval Ventricular 938 ms IDCO Episode Duration 53 s IDCO Episode Detection And Therapy Details [facility] IDCO Episode Identifier [id number] IDCO Episode Date Time IDCO Episode Type Category Other IDCO Episode Vendor Type Category XANDER IDCO Episode Detection Interval Ventricular 923 ms IDCO Episode Duration 53 s IDCO Episode Detection And Therapy Details [facility] IDCO Episode Identifier [id number] IDCO Episode Date Time [id number] IDCO Episode Type Category Other IDCO Episode Vendor Type Category XANDER IDCO Episode Detection Interval Ventricular 923 ms IDCO Episode Duration 54 s IDCO Episode Detection And Therapy Details [facility] IDCO Episode Identifier [id number] IDCO Episode Date Time [id number] IDCO Episode Type Category Other IDCO Episode Vendor Type Category XANDER IDCO Episode Detection Interval Ventricular 923 ms IDCO Episode Duration 53 s IDCO Episode Detection And Therapy Details [facility] IDCO Episode Identifier [id number] IDCO Episode Date Time [id number] IDCO Episode Type Category AT/AF IDCO Episode [...] E162 IDCO Implantable Pulse Generator Serial Number [id number] IDCO Implantable Pulse Generator Tutor [place] [employer] IDCO Implantable Pulse Generator Implant Date 20140110 IDCO Implantable Lead Model 4136 IDCO Implantable Lead Serial Number [id number] IDCO Implantable Lead Tutor Guidant IDCO Implantable Lead Implant Date 20130421 IDCO Implantable Lead Polarity Type Bipolar Lead IDCO Implantable Lead Location Right Atrium IDCO Implantable Lead Model 0292 IDCO Implantable Lead Serial Number [id number] IDCO Implantable Lead Tutor [place] [employer] IDCO Implantable Lead Implant Date IDCO [...] IDCO Lead Channel Pacing Threshold Measurement Method Grill Associate Manual IDCO Lead Channel Pacing Threshold Polarity [...] IDCO Lead Channel Pacing Threshold Measurement Method Grill Associate Manual IDCO Lead Channel Pacing Threshold Polarity [...] on filedocumented in this encounter Care Teams Otr [employer] Driver Relationship Specialty Start Date End Date Dewayne Carrington MD PCP - General 09/02/16 05/08/24 documented as of this encounter
--- OUTSIDE RECORDS SUMMARY | 2024-05-24 14:27 | XMS_ITS | Encounter Summary ---
Author Organization [facility] Address [facility] [place] [address] Care Team Providers Care Head Machine Feeder Name Role Phone Dewayne Carrington MD Primary Care Provider [phone] Encounter Details Date Type Department Care Team (Late st Contact Info) Description 12/06/2019 Telephone Cardiology at [address] [phone] Chante Robertson RN Social History Tobacco Use [...] AM EST Hospital Encounter [place] [address] Arrived 08/09/2024 10:00 AM EDT Hospital Encounter [place] [address] Arrived documented as of this encounter Visit Diagnoses Not on filedocumented in this encounter Care Teams Head Machine Feeder Relationship Specialty Start Date End Date Dewayne Carrington MD PCP - General 09/02/16 05/08/24 documented as of this encounter
--- OUTSIDE RECORDS SUMMARY | 2024-05-24 14:27 | XMS_ITS | Encounter Summary ---
Author Organization [facility] [place] [address] Care Team Providers Care Budget Engineer Name Role Phone Dewayne Carrington MD Primary Care Provider [phone] Encounter Details Date Type Department Care Team ([facility] st Contact Info) Description 12/06/2019 Telephone Cardiology at [address] [phone] Chatne Robertson RN Social History Tobacco Use Types [...] AM EST Hospital Encounter [place] [address] Arrived 08/09/2024 10:00 AM EDT Hospital Encounter [place] [address] Arrived documented as of this encounter Visit Diagnoses Not on filedocumented in this encounter Care Teams Budget Engineer Relationship Specialty Start Date End Date Dewayne Carrington MD PCP - General 09/02/16 05/08/24 documented as of this encounter
--- OUTSIDE RECORDS SUMMARY | 2024-05-24 14:27 | XMS_ITS | Encounter Summary ---
Author Organization [facility] [place] [address] Care Team Providers Care Auger Machine Offbearer Name Role Phone Dewayne Carrington MD Primary Care Provider [phone] Encounter Details Date Type Department Care Team (Late st Contact Info) Description 06/21/2019 Telephone Cardiology at [address] [phone] Chante Robertson RN Social History Tobacco Use [...] AM EST Hospital Encounter Non-[place] [phone] Arrived 08/09/2024 10:00 AM EDT Hospital Encounter Non-[place]vasive [place] [address] Arrived documented as of this encounter Visit Diagnoses Not on filedocumented in this encounter Care Teams Auger Machine Offbearer Relationship Specialty Start Date End Date Dewayne Carrington MD PCP - General 09/02/16 05/08/24 documented as of this encounter
--- OUTSIDE RECORDS SUMMARY | 2024-05-24 14:27 | XMS_ITS | Encounter Summary ---
Author Organization [place] [address] Care Team Providers Care Used Car Lot Attendant Name Role Phone Dewayne Carrington MD Primary Care Provider [phone] Reason for Visit * Reason Onset Date Comments Prior Authorization 12/05/2019 tacrolimus ( PROTOPIC) 0.1 % Ointment Encounter Details Date Type Department Care Team ([facility] st Contact Info) Description 12/05/2019 Telephone Dermatology at [facility] [address] [place] [address] [place]ero CMA Prior Authorization (tacrolimus (PROTOPIC) [...] Date: 12/05/2019 End Date: 04/19/2020 Case/Reference #: [id number] See Approval Letter in scanned documents. Additional Notes: * Telephone Encounter - [place] Tin[place] MA - 12/05/2019 10:03 AM EDT Medication Prior Authorization for Primary [place] [address] Request received via: [facility] Patient: Marquez Hendrix Patient : 1950 Insurance Company: [employer] Sent via: [facility] [place]: [id number] Physician: Irena Miranda MD Medication Requested: tacrolimus [...] AM EST Hospital Encounter Non-Invasive [place] [address] Arrived 08/09/2024 10:00 AM EDT Hospital Encounter Non-Invasive [place] [address] Arrived documented as of this encounter Visit Diagnoses Not on filedocumented in this encounter Care Teams Used Car Lot Attendant Relationship Specialty Start Date End Date Dewayne Carrington MD PCP - General 09/02/16 05/08/24 documented as of this encounter
--- OUTSIDE RECORDS SUMMARY | 2024-05-24 14:27 | XMS_ITS | Encounter Summary ---
Author Organization [facility] [place] [address] Care Team Providers Care Buckle Attaching Machine Operator Name Role Phone Dewayne Carrington MD Primary Care Provider [phone] Encounter Details Date Type Department Care Team (Late st Contact Info) Description 11/23/2019 Telephone Dermatology at [facility] [address] [place] [address] Irena Miranda MD Social History Tobacco Use [...] AM EST Hospital Encounter [place] [address] Arrived 08/09/2024 10:00 AM EDT Hospital Encounter [place] [address] Arrived documented as of this encounter Visit Diagnoses Not on filedocumented in this encounter Care Teams Buckle Attaching Machine Operator Relationship Specialty Start Date End Date Dewayne Carrington MD PCP - General 09/02/16 05/08/24 documented as of this encounter
--- OUTSIDE RECORDS SUMMARY | 2024-05-24 14:27 | XMS_ITS | Encounter Summary ---
Author [facility] [place] [address] Care Team Providers Care Gate Watchman Name Role Phone Dewayne Carrington MD Primary Care Provider [phone] Encounter Details Date Type Department Care Team (Late st Contact Info) Description 12/06/2019 Orders Only Cardiology at [address] [address] Social History Tobacco Use Types Packs/Day Years [...] AM EST Hospital Encounter [place] [address] Arrived 08/09/2024 10:00 AM EDT Hospital Encounter Non-[place] [address] Arrived documented as of this encounter Procedures Procedure Name Priority Date/Time Associated Diagnosis Comments CARDIAC DEVICE CHECK - REMOTE DEVICE INITIATED Routine 12/06/2019 12:54 AM EDT documented in this encounter Results * Cardiac device check - Remote Device Initiated (12/06/2019 12:54 AM EDT) Date Time Interrogation Session IDCO [...] Episode Identifier APM-44 IDCO Episode Date Time IDCO Episode Type [...] And Therapy Details ATR IDCO Episode Identifier [id number] IDCO Episode Date Time [id number] IDCO Episode Type Category Other IDCO Episode Vendor Type Category XANDER IDCO Episode Detection Interval Ventricular 1,053 ms IDCO Episode Duration 54 s IDCO Episode Detection And Therapy Details IDCO Episode Identifier [id number] IDCO Episode Date Time [id number] IDCO Episode Type Category Other IDCO Episode Vendor Type Category XANDER IDCO Episode Detection Interval Ventricular 938 ms IDCO Episode Duration 56 s IDCO Episode Detection And Therapy Details IDCO Episode Identifier [id number] IDCO Episode Date Time [id number] IDCO Episode Type Category Other IDCO Episode Vendor Type Category XANDER IDCO Episode Detection Interval Ventricular 952 ms IDCO Episode Duration 54 s IDCO Episode Detection And Therapy Details IDCO Episode Identifier [id number] IDCO Episode Date Time [id number] IDCO Episode Type Category Other IDCO Episode Vendor Type Category XANDER IDCO Episode Detection Interval Ventricular 1,017 ms IDCO Episode Duration 56 s IDCO Episode Detection And Therapy Details Q IDCO Episode Identifier [id number] IDCO Episode Date Time [id number] IDCO Episode Type Category Other IDCO Episode Vendor Type Category XANDER IDCO Episode Detection Interval Ventricular 833 ms IDCO Episode Duration 49 s IDCO Episode Detection And Therapy Details Q IDCO Episode Identifier [id number] IDCO Episode Date Time IDCO Episode Type Category Other IDCO Episode Vendor Type Category XANDER IDCO Episode Detection Interval Ventricular 938 ms IDCO Episode Duration 50 s IDCO Episode Detection And Therapy Details IDCO Episode Identifier [id number] IDCO Episode Date Time IDCO Episode Type Category Other IDCO Episode Vendor Type Category XANDER IDCO Episode Detection Interval Ventricular 938 ms IDCO Episode Duration 57 s IDCO Episode Detection And Therapy Details IDCO Episode Identifier IDCO Episode Date Time [id number] IDCO Episode Type Category Other IDCO Episode Vendor Type Category XANDER IDCO Episode Detection Interval Ventricular 923 ms IDCO Episode Duration 55 s IDCO Episode Detection And Therapy Details IDCO Episode Identifier IDCO Episode Date Time [id number] IDCO Episode Type Category Other IDCO Episode Vendor Type Category XANDER IDCO Episode Detection Interval Ventricular 909 ms IDCO Episode Duration 54 s IDCO Episode Detection And Therapy Details IDCO Episode Identifier IDCO Episode Date Time [id number] IDCO Episode Type Category Other IDCO Episode Vendor Type Category XANDER IDCO Episode Detection Interval Ventricular 923 ms IDCO Episode Duration 55 s IDCO Episode Detection And Therapy Details IDCO Episode Identifier [id number] IDCO Episode Date Time [id number] IDCO Episode Type Category AT/AF IDCO Episode Vendor Type Category ATR IDCO Episode Detection Interval Atrial 252 ms IDCO Episode Duration 7 s IDCO Episode Detection And Therapy Details ATR IDCO Episode Identifier IDCO Episode Date Time [id number] IDCO Episode Type Category VT IDCO Episode [...] Episode Identifier V IDCO Episode Date Time [id number] IDCO Episode Type Category VT IDCO Episode [...] E162 IDCO Implantable Pulse Generator Serial Number [id number] IDCO Implantable Pulse Generator Marketing Consultant [place] Scientific IDCO Implantable Pulse Generator Implant Date 20140110 IDCO Implantable Lead Model 4136 IDCO Implantable Lead Serial Number [id number] IDCO Implantable Lead Marketing Consultant Guidant IDCO Implantable Lead Implant Date 20130421 IDCO Implantable Lead Polarity Type Bipolar Lead IDCO Implantable Lead Location Right Atrium IDCO Implantable Lead Model 0292 IDCO Implantable Lead Serial Number [id number] IDCO Implantable Lead Marketing Consultant [place] Scientific IDCO Implantable Lead Implant Date IDCO [...] Lead Channel Pacing Threshold Measurement Method Financial Processing Clerk Manual IDCO Lead Channel Pacing Threshold [...] Lead Channel Pacing Threshold Measurement Method Financial Processing Clerk Manual IDCO Lead Channel Pacing Threshold [...] filedocumented in this encounter Care Teams Gate Watchman Relationship Specialty Start Date End Date Dewayne Carrington MD PCP - General 09/02/16 05/08/24 documented as of this encounter
--- OUTSIDE RECORDS SUMMARY | 2024-05-24 14:27 | XMS_ITS | Encounter Summary ---
Author Organization [facility] [place] [address] Care Team Providers Care Bounty Hunter Name Role Phone Dewayne Carrington MD Primary Care Provider [phone] Encounter Details Date Type Department Care Team ([facility] st Contact Info) Description 06/20/2019 Telephone Cardiology at [address] [phone] Chante Robertson RN Social History Tobacco Use [...] AM EST Hospital Encounter Non-[place] [address] Arrived 08/09/2024 10:00 AM EDT Hospital Encounter Non-[place] [address] Arrived documented as of this encounter Visit Diagnoses Not on filedocumented in this encounter Care Teams Bounty Hunter Relationship Specialty Start Date End Date Dewayne Carrington MD PCP - General 09/02/16 05/08/24 documented as of this encounter
--- OUTSIDE RECORDS SUMMARY | 2024-05-24 14:27 | XMS_ITS | Encounter Summary ---
Author Organization [facility] [place] [address] Care Team Providers Care Cargo Broker Name Role Phone Dewayne Carrington MD Primary Care Provider [phone] Encounter Details Date Type Department Care Team (Late st Contact Info) Description 09/30/2019 [place] [address] Edy Burns PA [facility] [place] [address] Social History Tobacco Use Types Packs/Day Years [...] Transmission Date: 09/30/2019 Device Type: ICD Generator census taker: [employer] Battery Status: Beginning of Service Atrial lead [...] AM EST Hospital Encounter [place] [address] Arrived 08/09/2024 10:00 AM EDT Hospital Encounter [place] [address] Arrived documented as of this encounter Visit Diagnoses Not on filedocumented in this encounter Care Teams Cargo Broker Relationship Specialty Start Date End Date Dewayne Carrington MD PCP - General 09/02/16 05/08/24 documented as of this encounter
--- OUTSIDE RECORDS SUMMARY | 2024-05-24 14:27 | XMS_ITS | Encounter Summary ---
[facility] [place] [address] Care Team Providers Care Corrugated Sheet Material Sheeter Name Role Phone Dewayne Carrington MD Primary Care Provider [phone] Encounter Details Date Type Department Care Team (Late st Contact Info) Description 10/26/2019 Orders Only Cardiology at [address] [address] Social History Tobacco Use Types Packs/Day Years [...] AM EST Hospital Encounter Non-[place] [address] Arrived 08/09/2024 10:00 AM EDT Hospital Encounter Non-[place] [address] Arrived documented as of this encounter Procedures [...] Reformation IDCO Capacitor Last Charge Date Time [id number] IDCO Capacitor Charge Time 3.8 s IDCO Capacitor Charge Energy 21 J IDCO Capacitor Charge Type Shock IDCO Episode Identifier APM-42 IDCO Episode Date Time IDCO Episode Type Category Periodic EGM IDCO Episode Vendor Type Category APMRT IDCO Episode Detection And Therapy Details Presenting EGM IDCO Episode Identifier IDCO Episode Date Time [id number] IDCO Episode Type Category VT IDCO Episode [...] IDCO Episode Identifier IDCO Episode Date Time [id number] IDCO Episode Type Category VT IDCO Episode Vendor Type Category NSVT IDCO Episode Type Induced Flag NO IDCO Episode Detection Interval Ventricular 357 ms IDCO Episode Duration 39 s IDCO Episode Detection And Therapy Details NonSustV IDCO Episode Identifier ATR-400 IDCO Episode Date Time [id number] IDCO Episode Type Category AT/AF IDCO Episode [...] IDCO Episode Identifier IDCO Episode Date Time [id number] IDCO Episode Type Category VT IDCO Episode [...] IDCO Episode Identifier IDCO Episode Date Time [id number] IDCO Episode Type Category VT IDCO Episode [...] IDCO Episode Identifier IDCO Episode Date Time [id number] IDCO Episode Type Category VT IDCO Episode Vendor Type Category VT-1 IDCO Episode Type Induced Flag NO IDCO Episode Detection Interval Ventricular 366 ms IDCO Episode Duration 80 s IDCO Episode Detection And Therapy Details VT-1 No Therapy IDCO Episode Identifier IDCO Episode Date Time [id number] IDCO Episode Type Category VT IDCO Episode Vendor Type Category VT-1 IDCO Episode Type Induced Flag NO IDCO Episode Detection Interval Ventricular 357 ms IDCO Episode Duration 59 s IDCO Episode Detection And Therapy Details VT-1 No Therapy IDCO Episode Identifier IDCO Episode Date Time [id number] IDCO Episode Type Category VT IDCO Episode Vendor Type Category VT-1 IDCO Episode Type Induced Flag NO IDCO Episode Detection Interval Ventricular 357 ms IDCO Episode Duration 111 s IDCO Episode Detection And Therapy Details VT-1 No Therapy IDCO Episode Identifier IDCO Episode Date Time [id number] IDCO Episode Type Category VT IDCO Episode Vendor Type Category VT-1 IDCO Episode Type Induced Flag NO IDCO Episode Detection Interval Ventricular 370 ms IDCO Episode Duration 104 s IDCO Episode Detection And Therapy Details VT-1 No Therapy IDCO Episode Identifier IDCO Episode Date Time [id number] IDCO Episode Type Category VT IDCO Episode Vendor Type Category VT-1 IDCO Episode Type Induced Flag NO IDCO Episode Detection Interval Ventricular 380 ms IDCO Episode Duration 185 s IDCO Episode Detection And Therapy Details VT-1 No Therapy IDCO Episode Identifier IDCO Episode Date Time [id number] IDCO Episode Type Category VT IDCO Episode Vendor Type Category VT-1 IDCO Episode Type Induced Flag NO IDCO Episode Detection Interval Ventricular 375 ms IDCO Episode Duration 137 s IDCO Episode Detection And Therapy Details VT-1 No Therapy IDCO Episode Identifier IDCO Episode Date Time [id number] IDCO Episode Type Category VT IDCO Episode Vendor Type Category VT-1 IDCO Episode Type Induced Flag NO IDCO Episode Detection Interval Ventricular 353 ms IDCO Episode Duration 39 s IDCO Episode Detection And Therapy Details VT-1 ATPx1 IDCO Episode Identifier IDCO Episode Date Time [id number] IDCO Episode Type Category VT IDCO Episode Vendor Type Category VT-1 IDCO Episode Type Induced Flag NO IDCO Episode Detection Interval Ventricular 364 ms IDCO Episode Duration 82 s IDCO Episode Detection And Therapy Details VT-1 No Therapy IDCO Episode Identifier [id number] IDCO Episode Date Time IDCO Episode Type Category Other IDCO Episode Vendor Type Category XANDER IDCO Episode Detection Interval Ventricular 1,017 ms IDCO Episode Duration 53 s IDCO Episode Detection And Therapy Details IDCO Episode Identifier [id number] IDCO Episode Date Time IDCO Episode Type Category Other IDCO Episode Vendor Type Category XANDER IDCO Episode Detection Interval Ventricular 938 ms IDCO Episode Duration 54 s IDCO Episode Detection And Therapy Details IDCO Episode Identifier [id number] IDCO Episode Date Time IDCO Episode Type Category Other IDCO Episode Vendor Type Category XANDER IDCO Episode Detection Interval Ventricular 938 ms IDCO Episode Duration 56 s IDCO Episode Detection And Therapy Details IDCO Episode Identifier [id number] IDCO Episode Date Time IDCO Episode Type Category Other IDCO Episode Vendor Type Category XANDER IDCO Episode Detection Interval Ventricular 952 ms IDCO Episode Duration 54 s IDCO Episode Detection And Therapy Details IDCO Episode Identifier [id number] IDCO Episode Date Time IDCO Episode Type Category Other IDCO Episode Vendor Type Category XANDER IDCO Episode Detection Interval Ventricular 909 ms IDCO Episode Duration 53 s IDCO Episode Detection And Therapy Details IDCO Episode Identifier [id number] IDCO Episode Date Time IDCO Episode Type Category Other IDCO Episode Vendor Type Category XANDER IDCO Episode Detection Interval Ventricular 1,091 ms IDCO Episode Duration 60 s IDCO Episode Detection And Therapy Details IDCO Episode Identifier [id number] IDCO Episode Date Time IDCO Episode Type Category Other IDCO Episode Vendor Type Category XANDER IDCO Episode Detection Interval Ventricular 1,034 ms IDCO Episode Duration 55 s IDCO Episode Detection And Therapy Details IDCO Episode Identifier [id number] IDCO Episode Date Time IDCO Episode Type Category Other IDCO Episode Vendor Type Category XANDER IDCO Episode Detection Interval Ventricular 952 ms IDCO Episode Duration 55 s IDCO Episode Detection And Therapy Details IDCO Episode Identifier [id number] IDCO Episode Date Time IDCO Episode Type Category Other IDCO Episode Vendor Type Category XANDER IDCO Episode Detection Interval Ventricular 952 ms IDCO Episode Duration 55 s IDCO Episode Detection And Therapy Details IDCO Episode Identifier [id number] IDCO Episode Date Time IDCO Episode Type [...] E162 IDCO Implantable Pulse Generator Serial Number [id number] IDCO Implantable Pulse Generator Director Of Strategic Communications [place] Scientific IDCO Implantable Pulse Generator Implant Date 20140110 IDCO Implantable Lead Model 4136 IDCO Implantable Lead Serial Number [id number] IDCO Implantable Lead Director Of Strategic Communications Guidant IDCO Implantable Lead Implant Date 20130421 IDCO Implantable Lead Polarity Type Bipolar Lead IDCO Implantable Lead Location Right Atrium IDCO Implantable Lead Model 0292 IDCO Implantable Lead Serial Number [id number] IDCO Implantable Lead Director Of Strategic Communications [place] Scientific IDCO Implantable Lead Implant Date IDCO [...] IDCO Lead Channel Pacing Threshold Measurement Method Foot Setter Manual IDCO Lead Channel Pacing Threshold Polarity [...] IDCO Lead Channel Pacing Threshold Measurement Method Foot Setter Manual IDCO Lead Channel Pacing Threshold Polarity [...] on filedocumented in this encounter Care Teams Corrugated Sheet Material Sheeter Relationship Specialty Start Date End Date Dewayne Carrington MD PCP - General 09/02/16 05/08/24 documented as of this encounter
--- OUTSIDE RECORDS SUMMARY | 2024-05-24 14:27 | XMS_ITS | Encounter Summary ---
Author [facility] [place] [address] Care Team Providers Care Gambling Box Person Name Role Phone Dewayne Carrington MD Primary Care Provider [phone] Encounter Details Date Type Department Care Team (Late st Contact Info) Description 12/06/2019 Orders Only Cardiology at [address] [address] Social History Tobacco Use Types Packs/Day Years [...] AM EST Hospital Encounter [place] [address] Arrived 08/09/2024 10:00 AM EDT Hospital Encounter Non-[place] [address] Arrived documented as of this encounter Procedures Procedure Name Priority Date/Time Associated Diagnosis Comments CARDIAC DEVICE CHECK - REMOTE PATIENT INITIATED Routine 12/06/2019 12:55 PM EDT documented in this encounter Results * Cardiac device check - Remote Patient Initiated (12/06/2019 12:55 PM EDT) Date Time Interrogation Session IDCO Type Interrogation Session Remote Patient Initiated IDCO Clinic Name [facility] [...] E162 IDCO Implantable Pulse Generator Serial Number [id number] IDCO Implantable Pulse Generator Patient Registration Supervisor [facility] Scientific IDCO Implantable Pulse Generator Implant Date 20140110 IDCO Implantable Lead Model 4136 IDCO Implantable Lead Serial Number [id number] IDCO Implantable Lead Patient Registration Supervisor Guidant IDCO Implantable Lead Implant Date 20130421 IDCO Implantable Lead Polarity Type Bipolar Lead IDCO Implantable Lead Location Right Atrium IDCO Implantable Lead Model 0292 IDCO Implantable Lead Serial Number [id number] IDCO Implantable Lead Patient Registration Supervisor [facility] Scientific IDCO Implantable Lead Implant Date [...] IDCO Lead Channel Pacing Threshold Measurement Method Corporation Lawyer Manual IDCO Lead Channel Pacing Threshold Polarity [...] IDCO Lead Channel Pacing Threshold Measurement Method Corporation Lawyer Manual IDCO Lead Channel Pacing Threshold Polarity [...] on filedocumented in this encounter Care Teams Gambling Box Person Relationship Specialty Start Date End Date Dewayne Carrington MD PCP - General 09/02/16 05/08/24 documented as of this encounter
--- OUTSIDE RECORDS SUMMARY | 2024-05-24 14:27 | XMS_ITS | Encounter Summary ---
Author Organization [facility] [place] [address] Care Team Providers Care Computer Trainer Name Role Phone Dewayne Carrington MD Primary Care Provider [phone] Encounter Details Date Type Department Care Team (Late st Contact Info) Description 10/26/2019 Telephone Cardiology at [address] [phone] Chante Robertson RN Social History Tobacco Use [...] had high ventricular rates in 170's [id number] [phone] alerted on his remote The real time EGM showed AF with V-paces and V rates in the 90's documented in this encounter Plan of Treatment Upcoming Encounters Date Type Department Care Team (Late st Contact Info) Description 06/15/2024 10:00 AM EST Hospital Encounter [place] [address] Arrived 08/09/2024 10:00 AM EDT Hospital Encounter [place] [address] Arrived documented as of this encounter Visit Diagnoses Not on filedocumented in this encounter Care Teams Computer Trainer Relationship Specialty Start Date End Date Dewayne Carrington MD PCP - General 09/02/16 05/08/24 documented as of this encounter
--- OUTSIDE RECORDS SUMMARY | 2024-05-24 14:27 | XMS_ITS | Encounter Summary ---
Author Organization [facility] [place] [address] Care Team Providers Care Rougher Machine Operator Name Role Phone Dewyane Carrington MD Primary Care Provider [phone] Encounter Details Date Type Department Care Team (Late st Contact Info) Description 06/20/2019 Orders Only Cardiology at [address] [address] Social History Tobacco Use Types Packs/Day Years [...] AM EST Hospital Encounter [place] [address] Arrived 08/09/2024 10:00 AM EDT Hospital Encounter [place] [address] Arrived documented as of this encounter Procedures Procedure Name Priority Date/Time Associated Diagnosis Comments CARDIAC DEVICE CHECK - REMOTE PATIENT INITIATED Routine 06/20/2019 5:33 PM EST documented in this encounter Results * Cardiac device check - Remote Patient Initiated (06/20/2019 5:33 PM EST) Date Time Interrogation Session IDCO Type Interrogation Session Remote Patient Initiated IDCO Clinic Name Gerry Carpio [facility] IDCO Battery Date Time of Measurements [...] Therapy Details Presenting EGM IDCO Episode Identifier [id number] IDCO Episode Date Time IDCO Episode Type Category Other IDCO Episode Vendor Type Category XANDER IDCO Episode Detection Interval Ventricular 923 ms IDCO Episode Duration 54 s IDCO Episode Detection And Therapy Details [id number] Episode Date Time IDCO Episode Type Category Other IDCO Episode Vendor Type Category XANDER IDCO Episode Detection Interval Ventricular 952 ms IDCO Episode Duration 57 s IDCO Episode Detection And Therapy Details IDCO Episode Identifier [id number] IDCO Episode Date Time IDCO Episode Type Category Other IDCO Episode Vendor Type Category XANDER IDCO Episode Detection Interval Ventricular 968 ms IDCO Episode Duration 56 s IDCO Episode Detection And Therapy Details IDCO Episode Identifier [id number] IDCO Episode Date Time IDCO Episode Type Category Other IDCO Episode Vendor Type Category XANDER IDCO Episode Detection Interval Ventricular 952 ms IDCO Episode Duration 56 s IDCO Episode Detection And Therapy Details IDCO Episode Identifier [id number] IDCO Episode Date Time IDCO Episode Type Category Other IDCO Episode Vendor Type Category XANDER IDCO Episode Detection Interval Ventricular 1,091 ms IDCO Episode Duration 58 s IDCO Episode Detection And Therapy Details [facility] [place] IDCO Episode Identifier [id number] IDCO Episode Date Time IDCO Episode Type Category Other IDCO Episode Vendor Type Category XANDER IDCO Episode Detection Interval Ventricular 952 ms IDCO Episode Duration 55 s IDCO Episode Detection And Therapy Details [facility] [place] IDCO Episode Identifier [id number] IDCO Episode Date Time IDCO Episode Type Category Other IDCO Episode Vendor Type Category XANDER IDCO Episode Detection Interval Ventricular 923 ms IDCO Episode Duration 55 s IDCO Episode Detection And Therapy Details [facility] [place] IDCO Episode Identifier [id number] IDCO Episode Date Time IDCO Episode Type Category Other IDCO Episode Vendor Type Category XANDER IDCO Episode Detection Interval Ventricular 896 ms IDCO Episode Duration 54 s IDCO Episode Detection And Therapy Details [facility] [place] IDCO Episode Identifier [id number] IDCO Episode Date Time IDCO Episode Type Category Other IDCO Episode Vendor Type Category XANDER IDCO Episode Detection Interval Ventricular 952 ms IDCO Episode Duration 41 s IDCO Episode Detection And Therapy Details [facility] [place] IDCO Episode Identifier [id number] IDCO Episode Date Time IDCO Episode Type Category Other IDCO Episode Vendor Type Category XANDER IDCO Episode Detection Interval Ventricular 968 ms IDCO Episode Duration 59 s IDCO Episode Detection And Therapy Details [facility] [place] IDCO Episode Identifier [id number] IDCO Episode Date [...] E162 IDCO Implantable Pulse Generator Serial Number [id number] IDCO Implantable Pulse Generator Metal Cut Off Saw Tender [place] [employer] IDCO Implantable Pulse Generator Implant Date 20140110 IDCO Implantable Lead Model 4136 IDCO Implantable Lead Serial Number [id number] IDCO Implantable Lead Metal Cut Off Saw Tender Guidant IDCO Implantable Lead Implant Date 20130421 IDCO Implantable Lead Polarity Type Bipolar Lead IDCO Implantable Lead Location Right Atrium IDCO Implantable Lead Model 0292 IDCO Implantable Lead Serial Number [id number] IDCO Implantable Lead Metal Cut Off Saw Tender [place] [employer] IDCO Implantable Lead Implant Date IDCO [...] IDCO Lead Channel Pacing Threshold Measurement Method Parts Identification Technician Manual IDCO Lead Channel Pacing Threshold [...] IDCO Lead Channel Pacing Threshold Measurement Method Parts Identification Technician Manual IDCO Lead Channel Pacing Threshold [...] on filedocumented in this encounter Care Teams Rougher Machine Operator Relationship Specialty Start Date End Date Dewayne Carrington MD PCP - General 09/02/16 05/08/24 documented as of this encounter
--- OUTSIDE RECORDS SUMMARY | 2024-05-24 14:27 | XMS_ITS | Encounter Summary ---
Author Organization [facility] [place] [address] Care Team Providers Care Public Address System Operator Name Role Phone Dewayne Carrington MD Primary Care Provider [phone] Encounter Details Date Type Department Care Team (Late st Contact Info) Description 08/04/2019 Orders Only Cardiology at [address] [address] Social History Tobacco Use Types Packs/Day Years [...] Hospital Encounter [place] [address] Arrived 08/09/2024 10:00 AM EDT Hospital Encounter [place] [address] Arrived documented as of this encounter Procedures Procedure Name Priority Date/Time Associated Diagnosis Comments CARDIAC DEVICE CHECK - REMOTE SCHEDULED Routine 08/04/2019 12:42 AM EDT documented in this encounter Results * Cardiac device check - Remote Scheduled (08/04/2019 12:42 AM EDT) Date Time Interrogation Session IDCO Type Interrogation Session Remote Scheduled IDCO Clinic Name Gerry Carpio [facility] IDCO Battery Date Time of Measurements [id number] IDCO Battery Status Beginning of Service IDCO [...] Therapy Details Presenting EGM IDCO Episode Identifier [id number] IDCO Episode Date Time IDCO Episode Type Category Other IDCO Episode Vendor Type Category XANDER IDCO Episode Detection Interval Ventricular 938 ms IDCO Episode Duration 53 s IDCO Episode Detection And Therapy Details IDCO Episode Identifier [id number] IDCO Episode Date Time [id number] IDCO Episode Type Category Other IDCO Episode Vendor Type Category XANDER IDCO Episode Detection Interval Ventricular 909 ms IDCO Episode Duration 53 s IDCO Episode Detection And Therapy Details IDCO Episode Identifier [id number] IDCO Episode Date Time [id number] IDCO Episode Type Category Other IDCO Episode Vendor Type Category XANDER IDCO Episode Detection Interval Ventricular 857 ms IDCO Episode Duration 52 s IDCO Episode Detection And Therapy Details IDCO Episode Identifier [id number] IDCO Episode Date Time [id number] IDCO Episode Type Category Other IDCO Episode Vendor Type Category XANDER IDCO Episode Detection Interval Ventricular 909 ms IDCO Episode Duration 53 s IDCO Episode Detection And Therapy Details IDCO Episode Identifier [id number] IDCO Episode Date Time [id number] IDCO Episode Type Category Other IDCO Episode Vendor Type Category XANDER IDCO Episode Detection Interval Ventricular 909 ms IDCO Episode Duration 54 s IDCO Episode Detection And Therapy Details [id number] Episode Date Time [id number] IDCO Episode Type Category Other IDCO Episode Vendor Type Category XANDER IDCO Episode Detection Interval Ventricular 968 ms IDCO Episode Duration 57 s IDCO Episode Detection And Therapy Details [facility] IDCO Episode Identifier [id number] IDCO Episode Date Time [id number] IDCO Episode Type Category Other IDCO Episode Vendor Type Category XANDER IDCO Episode Detection Interval Ventricular 952 ms IDCO Episode Duration 57 s IDCO Episode Detection And Therapy Details [facility] IDCO Episode Identifier [id number] IDCO Episode Date Time [id number] IDCO Episode Type Category Other IDCO Episode Vendor Type Category XANDER IDCO Episode Detection Interval Ventricular 952 ms IDCO Episode Duration 56 s IDCO Episode Detection And Therapy Details [facility] IDCO Episode Identifier [id number] IDCO Episode Date Time [id number] IDCO Episode Type Category Other IDCO Episode Vendor Type Category XANDER IDCO Episode Detection Interval Ventricular 952 ms IDCO Episode Duration 57 s IDCO Episode Detection And Therapy Details [id number] ID[facility] Episode Date Time [id number] IDCO Episode Type Category Other IDCO Episode Vendor Type Category XANDER IDCO Episode Detection Interval Ventricular 952 ms IDCO Episode Duration 56 s IDCO Episode Detection And Therapy Details [facility] IDCO Episode Identifier [id number] IDCO Episode Date Time [id number] IDCO Episode Type Category AT/AF IDCO Episode Vendor Type Category ATR IDCO Episode Detection Interval Atrial 276 ms IDCO Episode Duration 17,329 s IDCO Episode Detection And Therapy Details ATR IDCO Episode Identifier [id number] IDCO Episode Date Time [id number] IDCO Episode Type Category AT/AF IDCO Episode Vendor Type Category ATR IDCO Episode Detection Interval Atrial 262 ms IDCO Episode Duration 41,381 s IDCO Episode Detection And Therapy Details ATR IDCO Episode Identifier ATR-281 IDCO Episode Date Time [id number] IDCO Episode Type Category AT/AF IDCO Episode [...] E162 IDCO Implantable Pulse Generator Serial Number [id number] IDCO Implantable Pulse Generator Door To Door Selling Agent [place] [employer] IDCO Implantable Pulse Generator Implant Date 20140110 IDCO Implantable Lead Model 4136 IDCO Implantable Lead Serial Number [id number] IDCO Implantable Lead Door To Door Selling Agent Guidant IDCO Implantable Lead Implant Date 20130421 IDCO Implantable Lead Polarity Type Bipolar Lead IDCO Implantable Lead Location Right Atrium IDCO Implantable Lead Model 0292 IDCO Implantable Lead Serial Number [id number] IDCO Implantable Lead Door To Door Selling Agent [place] [employer] IDCO Implantable Lead Implant Date IDCO [...] Lead Channel Pacing Threshold Measurement Method Hand Stone Polisher Manual IDCO Lead Channel Pacing Threshold Polarity [...] Lead Channel Pacing Threshold Measurement Method Hand Stone Polisher Manual IDCO Lead Channel Pacing Threshold Polarity [...] on filedocumented in this encounter Care Teams Public Address System Operator Relationship Specialty Start Date End Date Dewayne Carrington MD PCP - General 09/02/16 05/08/24 documented as of this encounter
--- OUTSIDE RECORDS SUMMARY | 2024-05-24 14:27 | XMS_ITS | Encounter Summary ---
Author Organization [facility] [place] [address] Care Team Providers Care Teacher Education Instructor Name Role Phone Dewayne Carrington MD Primary Care Provider [phone] Encounter Details Date Type Department Care Team (Late st Contact Info) Description 06/17/2019 Telephone Cardiology at [address] [phone] Chante Robertson RN Social History Tobacco Use [...] I was pass this along to his plane tableman and he should call if he has any questions or symptoms. documented in this encounter Plan of Treatment Upcoming Encounters Date Type Department Care Team (Late st Contact Info) Description 06/15/2024 10:00 AM EST Hospital Encounter Non-Invasive [place] [address] Arrived 08/09/2024 10:00 AM EDT Hospital Encounter Non-Invasive [place] [address] Arrived documented as of this encounter Visit Diagnoses Not on filedocumented in this encounter Care Teams Teacher Education Instructor Relationship Specialty Start Date End Date Dewayne Carrington MD PCP - General 09/02/16 05/08/24 documented as of this encounter
--- OUTSIDE RECORDS SUMMARY | 2024-05-24 14:27 | XMS_ITS | Encounter Summary ---
Author Organization [facility] Address [facility] [place] [address] Care Team Providers Care Automotive Technician Instructor Name Role Phone Dewayne Carrington MD Primary Care Provider [phone] Encounter Details Date Type Department Care Team (Late st Contact Info) Description 07/21/2019 Telephone Dermatology at [facility] [address] [place] [address] Sanjay Early Social History Tobacco Use Types [...] AM EST Hospital Encounter Non-[place] [address] Arrived 08/09/2024 10:00 AM EDT Hospital Encounter Non-Invasive [place] [address] Arrived documented as of this encounter Visit Diagnoses Not on filedocumented in this encounter Care Teams Automotive Technician Instructor Relationship Specialty Start Date End Date Dewayne Carrington MD PCP - General 09/02/16 05/08/24 documented as of this encounter
--- OUTSIDE RECORDS SUMMARY | 2024-05-24 14:27 | XMS_ITS | Encounter Summary ---
Author Organization [facility] [place] [address] Care Team Providers Care Career Development Engineer Name Role Phone Dewayne Carrington MD Primary Care Provider [phone] Encounter Details Date Type Department Care Team (Late st Contact Info) Description 11/12/2019 Orders Only Cardiology at [address] [address] Social History Tobacco Use Types Packs/Day Years [...] AM EST Hospital Encounter Non-Invasive [place] [address] Arrived 08/09/2024 10:00 AM EDT Hospital Encounter Non-Invasive [place] [address] Arrived documented as of this encounter Procedures Procedure Name Priority Date/Time Associated Diagnosis Comments CARDIAC DEVICE CHECK - REMOTE DEVICE INITIATED Routine 11/12/2019 12:43 AM EDT documented in this encounter Results * Cardiac device check - Remote Device Initiated (11/12/2019 12:43 AM EDT) Date Time Interrogation Session IDCO Type Interrogation Session Remote Device Initiated IDCO Clinic Name [facility] IDCO Battery Date Time of Measurements [id number] IDCO Battery Status Beginning of Service IDCO Battery Remaining Longevity 60 mo IDCO Battery Remaining Percentage 72 % IDCO Capacitor Last Charge Date Time IDCO Capacitor Charge Time 11.0 s IDCO Capacitor Charge Type Reformation IDCO Capacitor Last Charge Date Time [id number] IDCO Capacitor Charge Time 3.8 s IDCO Capacitor Charge Energy 21 J IDCO Capacitor Charge Type Shock IDCO Episode Identifier [id number] IDCO Episode Date Time [id number] IDCO Episode Type Category Periodic EGM IDCO [...] Episode Identifier [id number]-408 IDCO Episode Date Time [id number] IDCO Episode Type Category AT/AF IDCO Episode Vendor Type Category ATR IDCO Episode Detection Interval Atrial 260 ms IDCO Episode Duration 113,730 s IDCO Episode Detection And Therapy Details ATR IDCO Episode Identifier ATR-407 IDCO Episode Date Time [id number] IDCO Episode Type Category AT/AF IDCO Episode [...] And Therapy Details ATR IDCO Episode Identifier [id number] IDCO Episode Date Time IDCO Episode Type Category Other IDCO Episode Vendor Type Category XANDER IDCO Episode Detection Interval Ventricular 1,000 ms IDCO Episode Duration 53 s IDCO Episode Detection And Therapy Details IDCO Episode Identifier [id number] IDCO Episode Date Time IDCO Episode Type Category Other IDCO Episode Vendor Type Category XANDER IDCO Episode Detection Interval Ventricular 1,000 ms IDCO Episode Duration 54 s IDCO Episode Detection And Therapy Details IDCO Episode Identifier [id number] IDCO Episode Date Time IDCO Episode Type Category Other IDCO Episode Vendor Type Category XANDER IDCO Episode Detection Interval Ventricular 984 ms IDCO Episode Duration 54 s IDCO Episode Detection And Therapy Details IDCO Episode Identifier [id number] IDCO Episode Date Time IDCO Episode Type Category Other IDCO Episode Vendor Type Category XANDER IDCO Episode Detection Interval Ventricular 1,000 ms IDCO Episode Duration 54 s IDCO Episode Detection And Therapy Details IDCO Episode Identifier [id number] IDCO Episode Date Time IDCO Episode Type Category Other IDCO Episode Vendor Type Category XANDER IDCO Episode Detection Interval Ventricular 938 ms IDCO Episode Duration 54 s IDCO Episode Detection And Therapy Details IDCO Episode Identifier [id number] IDCO Episode Date Time IDCO Episode Type Category Other IDCO Episode Vendor Type Category XANDER IDCO Episode Detection Interval Ventricular 1,017 ms IDCO Episode Duration 53 s IDCO Episode Detection And Therapy Details IDCO Episode Identifier [id number] IDCO Episode Date Time IDCO Episode Type Category Other IDCO Episode Vendor Type Category XANDER IDCO Episode Detection Interval Ventricular 1,364 ms IDCO Episode Duration 60 s IDCO Episode Detection And Therapy Details IDCO Episode Identifier [id number] IDCO Episode Date Time IDCO Episode Type Category Other IDCO Episode Vendor Type Category XANDER IDCO Episode Detection Interval Ventricular 1,071 ms IDCO Episode Duration 61 s IDCO Episode Detection And Therapy Details IDCO Episode Identifier [id number] IDCO Episode Date Time IDCO Episode Type Category Other IDCO Episode Vendor Type Category XANDER IDCO Episode Detection Interval Ventricular 984 ms IDCO Episode Duration 61 s IDCO Episode Detection And Therapy Details [id number] IDCO Episode Date Time IDCO Episode Type [...] Episode Identifier [id number] IDCO Episode Date Time [id number] IDCO Episode Type Category AT/AF IDCO Episode Vendor Type Category ATR IDCO Episode Detection Interval Atrial 287 ms IDCO Episode Duration 32 s IDCO Episode Detection And Therapy Details ATR IDCO Episode Identifier [id number]-402 IDCO Episode Date Time [id number] IDCO Episode Type Category AT/AF IDCO Episode [...] E162 IDCO Implantable Pulse Generator Serial Number [id number] IDCO Implantable Pulse Generator Manufacturing Controls Engineer [employer] IDCO Implantable Pulse Generator Implant Date 20140110 IDCO Implantable Lead Model 4136 IDCO Implantable Lead Serial Number [id number] IDCO Implantable Lead Manufacturing Controls Engineer Guidant IDCO Implantable Lead Implant Date 20130421 IDCO Implantable Lead Polarity Type Bipolar Lead IDCO Implantable Lead Location Right Atrium IDCO Implantable Lead Model 0292 IDCO Implantable Lead Serial Number [id number] IDCO Implantable Lead Manufacturing Controls Engineer [employer] IDCO Implantable Lead Implant Date IDCO [...] IDCO Lead Channel Pacing Threshold Measurement Method Drapery Head Former Manual IDCO Lead Channel Pacing Threshold Polarity [...] IDCO Lead Channel Pacing Threshold Measurement Method Dra[place]y Head Former Manual IDCO Lead Channel Pacing Threshold Polarity [...] on filedocumented in this encounter Care Teams Career Development Engineer Relationship Specialty Start Date End Date Dewayne Carrington MD PCP - General 09/02/16 05/08/24 documented as of this encounter
--- OUTSIDE RECORDS SUMMARY | 2024-05-24 14:27 | XMS_ITS | Encounter Summary ---
Author Organization [facility] Address [facility] [place] [address] Care Team Providers Care Waxer Tender Name Role Phone Dewayne Carrington MD Primary Care Provider Encounter Details Date Type Department Care Team ([facility] Contact Info) Description 11/17/2019 Telephone Dermatology at [facility] [address] [place] [address] Irena Miranda MD Social History Tobacco Use [...] Upcoming Encounters Date Type Department Care Team ([facility] Contact Info) Description 06/15/2024 10:00 AM EST Hospital Encounter [place] [address] Arrived 08/09/2024 10:00 AM EDT Hospital Encounter [place] [address] Arrived documented as of this encounter Visit Diagnoses Not on filedocumented in this encounter Care Teams Waxer Tender Relationship Specialty Start Date End Date Dewayne Carrington MD PCP - General 09/02/16 05/08/24 documented as of this encounter
--- OUTSIDE RECORDS SUMMARY | 2024-05-24 14:27 | XMS_ITS | Encounter Summary ---
Author Organization [facility] Address [facility] [place] [address] Care Team Providers Care Chlorinator Name Role Phone Dewayne Carrington MD Primary Care Provider [phone] Encounter Details Date Type Department Care Team (Late st Contact Info) Description 11/14/2019 Notes Only Cardiology at [address] [address] Edy Torres PA [facility] [place] [address] Social History Tobacco Use Types Packs/Day Years [...] Transmission Date: 11/12/2019 Device Type: ICD Generator valet parker: BSC Battery Status: good; five years Atrial [...] AM EST Hospital Encounter [place] [address] Arrived 08/09/2024 10:00 AM EDT Hospital Encounter [place] [address] Arrived documented as of this encounter Visit Diagnoses Not on filedocumented in this encounter Care Teams Chlorinator Relationship Specialty Start Date End Date Dewayne Carrington MD PCP - General 09/02/16 05/08/24 documented as of this encounter
--- OUTSIDE RECORDS SUMMARY | 2024-05-24 14:27 | XMS_ITS | Encounter Summary ---
Author Organization [facility] [place] [address] Care Team Providers Care Director Industrial Nursing Name Role Phone Dewayne Carrington MD Primary Care Provider [phone] Encounter Details Date Type Department Care Team ([facility] st Contact Info) Description 07/14/2019 Telephone Cardiology at [address] [address] Nicole Cancino, RN Social History [...] is all set with an EP and box strapper at [facility]. Look back into the referral - [...] AM EST Hospital Encounter Non-Invasive [place] [address] Arrived 08/09/2024 10:00 AM EDT Hospital Encounter Non-Invasive [place] [address] Arrived documented as of this encounter Visit Diagnoses Not on filedocumented in this encounter Care Teams Director Industrial Nursing Relationship Specialty Start Date End Date Dewayne Carrington MD PCP - General 09/02/16 05/08/24 documented as of this encounter
--- OUTSIDE RECORDS SUMMARY | 2024-05-24 14:27 | XMS_ITS | Encounter Summary ---
Author Organization Formerly [facility] Address [facility] [place] [address] Care Team Providers Care Electrician Marine Name Role Phone Dewayne Carrington MD Primary Care Provider [phone] Reason for Visit * Reason Comments Rash Encounter Details Date Type Department Care Team (Late st Contact Info) Description 11/15/2019 6:00 PM EDT Office Visit Dermatology at [facility] [address] [place] [address] Irena Miranda MD Lichen simplex chronicus Social [...] started using baby wipes. - preferred pharmacy: [id number] AT [facility] Social History: Retired Twice a Family [...] documentation. Irena Miranad MD Section of Dermatology [facility] documented in this encounter Plan of Treatment Upcoming Encounters Date Type Department Care Team (Late st Contact Info) Description 06/15/2024 10:00 AM EST Hospital Encounter Non-[place] [address] Arrived 08/09/2024 10:00 AM EDT Hospital Encounter Non-[place] [address] Arrived documented as of this encounter Visit Diagnoses Diagnosis Lichen simplex chronicus Lichenification and lichen simplex chronicus documented in this encounter Care Teams Electrician Marine Relationship Specialty Start Date End Date Dewayne Carrington MD PCP - General 09/02/16 05/08/24 documented as of this encounter
--- OUTSIDE RECORDS SUMMARY | 2024-05-24 14:28 | XMS_ITS | Encounter Summary ---
Author Organization [facility] [place] [address] Care Team Providers Care Referral Clerk Name Role Phone Dewayne Carrington MD Primary Care Provider [phone] Encounter Details Date Type Department Care Team (Late st Contact Info) Description 02/18/2018 [place] [phone] Lucrecia Bhardwaj, RN Social History Tobacco Use [...] advice/treatment. He agrees with the plan. Patient/Responsible constitution party voices an understanding of advice? Yes Patient/Responsible constitution party intends to comply with action/disposition: Yes documented in this encounter Plan of Treatment Upcoming Encounters Date Type Department Care Team (Late st Contact Info) Description 06/15/2024 10:00 AM EST Hospital Encounter Non[place] [address] Arrived 08/09/2024 10:00 AM EDT Hospital Encounter Non[place] [address] Arrived documented as of this encounter Visit Diagnoses Not on filedocumented in this encounter Care Teams Referral Clerk Relationship Specialty Start Date End Date Dewayne Carrington MD PCP - General 09/02/16 05/08/24 documented as of this encounter
--- OUTSIDE RECORDS SUMMARY | 2024-05-24 14:28 | XMS_ITS | Encounter Summary ---
[place] [address] Care Team Providers Care Acid Treater Name Role Phone Dewayne Carrington MD Primary Care Provider [phone] Reason for Visit * Reason Comments Wound Check Encounter Details Date Type Department Care Team (Late st Contact Info) Description 03/04/2019 1:00 PM EST Office [place] [phone] Kelly Zheng RN Pressure injury of right [...] x 1.0 cm area none No wounds. [place], blanchable PHOTO Treatment: Analgesia: none administered prior [...] d/c the patient from our carein the [facility]. We will be happy to see [...] Beef, chicken, fish Beans, Lentils, peanut butter Bulgarian and regular yogurt Cheese, eggs ?? Boost, Ensure shakes Protein powder in a smoothie of your choice ?? documented in this encounter Plan of Treatment Upcoming Encounters Date Type Department Care Team (Late st Contact Info) Description 06/15/2024 10:00 AM EST Hospital Encounter [place] [address] Arrived 08/09/2024 10:00 AM EDT Hospital Encounter [place] [address] Arrived documented as of this encounter Visit Diagnoses Diagnosis Pressure injury of right buttock, stage 1 documented in this encounter Care Teams Acid Treater Relationship Specialty Start Date End Date Dewayne Carrington MD PCP - General 09/02/16 05/08/24 documented as of this encounter
--- OUTSIDE RECORDS SUMMARY | 2024-05-24 14:28 | XMS_ITS | Encounter Summary ---
Author Organization [facility] Address [facility] [place] [address] Care Team Providers Care Vp Integration Name Role Phone Dewayne Carrington MD Primary Care Provider [phone] Reason for Visit * Reason Comments Follow-up Right wrist pain discuss xrays and US results left wrist painful as well Encounter Details Date Type Department Care Team (Late st Contact Info) Description 12/22/2018 2:30 PM EDT Office [place] [address] Scarlett Vasquez MD [facility] [place] [address] Pain in left wrist; Pain in right [...] to rheumatology for further evaluation there. The public relations director did not find a clear explanation for [...] WITH BIOPSY performed by KYRA VYAS at [facility] Allergies: Allergies Allergen Reactions ??? [...] file Gets together: Not on file Attends confucianism service: Not on file Active member of [...] the patient's orthopedist closer to home in [place] to see if he can help schedule [...] AM EST Hospital Encounter Non-Invasive [place] [address] Arrived 08/09/2024 10:00 AM EDT Hospital Encounter Non-[place]vasive [place] [address] Arrived documented as of this encounter Visit Diagnoses Diagnosis Pain in left wrist Pain in joint, forearm Pain in right wrist Pain in joint, forearm documented in this encounter Care Teams Vp Integration Relationship Specialty Start Date End Date Dewayne Carrington MD PCP - General 09/02/16 05/08/24 documented as of this encounter
--- OUTSIDE RECORDS SUMMARY | 2024-05-24 14:28 | XMS_ITS | Encounter Summary ---
Author Organization [facility] [place] [address] Care Team Providers Care Inspector Bicycle Name Role Phone Dewayne Carrington MD Primary Care Provider [phone] Reason for Visit * Reason Onset Date Comments Other 05/02/2019 symptom update Encounter Details Date Type Department Care Team ([facility] st Contact Info) Description 05/02/2019 Telephone Cardiology at [address] [phone] Vickie Zarco, RN Other (symptom update ) [...] Self as he now sees Dr Zabala [facility]. He has noted increased episodes of afib over this past week or so,ongoing headaches and fatigue . Recent increased emotional stress(family and work). States B/P has been lower than normal and heart rate 56-64. Taking fluids ok,instructed in importance of this. States he was recently assessed by his PCP,no changes were made. Instructed Pato to contact Dr Zabala' office in [place] today to discuss need for assessment,he is agreeable to this and will seek urgent /emergent care should his symptoms worsen/change . This RN will contact Pato tomorrow 05/03 ,making sure he was able to reach Cardiology in [facility]. Pato is agreeable to this ,appreciative our care. Forward to Dr Zabala as update. Update 05/03,call to Pato voice message left requesting a return call re: was he able to secure an office visit with Dr Zabala in [place]. Await return call. Return call from Pato,states [...] AM EST Hospital Encounter Non-[place] [address] Arrived 08/09/2024 10:00 AM EDT Hospital Encounter Non-[place] [address] Arrived documented as of this encounter Visit Diagnoses Not on filedocumented in this encounter Care Teams Inspector Bicycle Relationship Specialty Start Date End Date Dewayne Carrington MD PCP - General 09/02/16 05/08/24 documented as of this encounter
--- OUTSIDE RECORDS SUMMARY | 2024-05-24 14:28 | XMS_ITS | Encounter Summary ---
Author Organization [facility] Address [facility] [place] [address] Care Team Providers Care Fire Loss Prevention Engineer Name Role Phone Dewayne Carrington MD Primary Care Provider [phone] Reason for Visit * Reason Comments Right Wrist Pain Encounter Details Date Type Department Care Team (Late st Contact Info) Description 07/14/2018 3:30 PM EDT Office [place] [address] Honorio Vasquez MD [facility] [place] [address] Pain in right wrist Social History Tobacco [...] so. I am also checking with his crib attendant to see if his defibrillator is MRI [...] AM EST Hospital Encounter Non-[place] [address] Arrived 08/09/2024 10:00 AM EDT Hospital Encounter [place] [address] Arrived documented as of this encounter Procedures [...] PM EDT) DNA Ab (DS) Neg Neg [facility] Blood specimen (specimen) 07/14/2018 4:16 PM EDT 07/15/2018 8:03 AM EDT Narrative Resulting Agency Comment Spec In Lab Honorio Vasquez MD LAB SEND OUT ORDERAB LES Performing Organization Address [facility]/ZIP Co de Phone Number [facility] [place] [address] * (ABNORMAL) Differential, Automated (07/14/2018 4:16 PM EDT) Neutrophil % 54.5 % [facility] Neutrophil Absolute 4.06 1.70 - 6.10 x10(3)/mc L [facility] Lymph % 29.8 % [facility] Lymphocytes Abs 2.2 0.9 - 3.2 x10(3)/ L [facility] Monocyte % 6.2 % [facility] Monocyte Abs 0.5 0.3 - 0.9 x10(3)/ L [facility] Eos % 8.5 % [facility] Eosinophils Abs 0.6(H) 0.0 - 0.4 x10(3)/[facility] Basophil % 0.7 % [facility] Baso Absolute 0.0 0.0 - 0.1 x10(3)/ L [facility] Immature Gran % 0.30 % [facility] Comment: Immature granulocytes(IG's)percentage and absolute count will include metamyelocytes, myelocytes, and promyelocytes. Blood smears from CBCs yielding IG's will be scanned manually for concordance. If this scan disagrees with the automated IG or if promyelocytes are noted, a manual differential will be performed. Immature Gran Absolute 0.02 0.00 - 0.04 x10(3)/mc L [facility] Blood specimen (specimen) 07/14/2018 4:16 PM EDT 07/14/2018 4:30 PM EDT Narrative Resulting Agency Comment Spec In Lab Honorio Vasquez MD HEMATOLOGY ORDERABLE S Performing Organization Address [facility]/ZIP Co de Phone Number [facility] [place] [place] [address] * (ABNORMAL) Hemogram (07/14/2018 4:16 PM EDT) White Blood Cell 7.4 4.0 - 9.5 x10(3)/[facility] Red Blood Cell 5.02 4.58 - 5.54 x10(6)/[facility] Hemoglobin 12.3(L) 13.7 - 16.5 gm/dL [facility] Hematocrit 40.1(L) 40.5 - 48.5 % [facility] Mean Cell Volume 79.9(L) 82.9 - 93.1 [facility] Mean Cell Hemoglobin 24.5(L) 27.5 - 32.1 pg [facility] Mean Cell Hemoglobin Concentration 30.7(L) 32.0 - 35.7 gm/dL [facility] Platelet 240 145 - 357 x10(3)/[facility] RDW Standard Deviation 45.3(H) 36.0 - 45.0 [facility] RDW coefficient of variation 15.7(H) 11.4 - 13.8 % [facility] Mean Platelet Volume 9.4 7.6 - 12.9 [facility] NRBC% auto 0.0 % [facility] NRBC Absolute 0.000 0.000 - 0.000 x10(3)/[facility] Blood specimen (specimen) 07/14/2018 4:16 PM EDT 07/14/2018 4:30 PM EDT Narrative Resulting Agency Comment Spec In Lab Honorio Vasquez MD HEMATOLOGY ORDERABLE S [facility] [place] [address] * (ABNORMAL) SONAL (LEB/CGP) (07/14/2018 4:16 PM EDT) SONAL Pos at 1:80(A) Neg [facility] Comment: Titer seen with Speckled pattern. ??Is suggestive of autoantibodies to Sm, LOPPER, SCL-70, or SS-B. Blood specimen (specimen) 07/14/2018 4:16 PM EDT 07/15/2018 8:03 AM EDT Narrative Resulting Agency Comment Spec In Lab Honorio Vasquez MD LAB SEND OUT ORDERAB LES Performing Organization Address [facility] Co de Phone Number [facility] [place] [address] * Cyclic Citrullinated Peptide (07/14/2018 4:16 PM EDT) Cyclic Citrulline Peptide <0.5 <=4.9 unit/mL [facility] Comment: An updated CCP assay reagent was implemented 07/31/16. Please note the modified reference interval. Blood specimen (specimen) 07/14/2018 4:16 PM EDT 07/14/2018 4:30 PM EDT Narrative Resulting Agency Comment Spec In Lab Honorio Vasquez MD CHEMISTRY ORDERABLES Performing Organization Address [facility] Co de Phone Number [facility] [place] [address] * CRP, acute inflammation (07/14/2018 4:16 PM EDT) C-Reactive Protein 0.4 <=4.9 mg/L [facility] Blood specimen (specimen) 07/14/2018 4:16 PM EDT 07/14/2018 4:30 PM EDT Narrative Resulting Agency Comment Spec In Lab Honorio Vasquez MD CHEMISTRY ORDERABLES Performing Organization Address [facility] Co de Phone Number [facility] [place] [address] documented in this encounter Visit Diagnoses Diagnosis Pain in right wrist Pain in joint, forearm documented in this encounter Care Teams Fire Loss Prevention Engineer Relationship Specialty Start Date End Date Dewayne Carrington MD PCP - General 09/02/16 05/08/24 documented as of this encounter
--- OUTSIDE RECORDS SUMMARY | 2024-05-24 14:28 | XMS_ITS | Encounter Summary ---
Author Organization [facility] [place] [address] Care Team Providers Care Fiber Optic Assembler Name Role Phone Dewayne Carrington MD Primary Care Provider [phone] Encounter Details Date Type Department Care Team (Late st Contact Info) Description 01/31/2019 External Results Cardiology at [address] [phone] Dewayne Carrington MD [address] [place] [phone] Social History Tobacco Use Types Packs/Day Years [...] AM EST Hospital Encounter Non-[place] [phone] Arrived 08/09/2024 10:00 AM EDT Hospital Encounter Non-Invasive [place] [address] Arrived documented as of this encounter Procedures Procedure Name Priority Date/Time Associated Diagnosis Comments EP DEVICE SCAN Routine 01/13/2019 documented in this encounter Results * Scan Doc: EP Device (01/13/2019) Anatomical Region Laterality Modality Other Dewayne Carrington MD MEDIA MGR SCAN EXT O RDR/RSLT documented in this encounter Visit Diagnoses Not on filedocumented in this encounter Care Teams Fiber Optic Assembler Relationship Specialty Start Date End Date Dewayne Carrington MD PCP - General 09/02/16 05/08/24 documented as of this encounter
--- OUTSIDE RECORDS SUMMARY | 2024-05-24 14:28 | XMS_ITS | Encounter Summary ---
Author Organization [facility] [place] [address] Care Team Providers Care Instrument Tester Name Role Phone Dewayne Carrington MD Primary Care Provider Encounter Details Date Type Department Care Team (Late st Contact Info) Description 11/08/2018 11:08 AM EDT - 11/08/2018 11:59 PM EDT Hospital Encounter XRay at [address] [place] [address] Yamile Pimentel, [facility] [place] [address] Pain in left wrist Discharge Disposition: Home [...] INJECT ONCE DAILY DIRECTED 0 10/07/2018 05/14/2024 vortioxetine (BRINTELLIX) 10 mg Tablet Take 15 [...] AM EST Hospital Encounter Non-Invasive Cardiology [place] [address] Arrived 08/09/2024 10:00 AM EDT Hospital Encounter Non[place] [address] Arrived documented as of this encounter Procedures [...] contact the number below. ? Narrative 11/08/2018 1:47 PM EDT EXAMINATION: XR [...] number below. Electronically signed by: RAHEEL Vazquez [facility]([phone]), at 11/08/2018 1:47 PM Yamile Pimentel DO IMG DX ORDERABLES * XR Hand Min 3 views Left (Generic) (11/08/2018 11:21 AM EDT) Anatomical Region Laterality Modality Hand Left Digital Radiogra phy Impressions 11/08/2018 1:41 PM EDT Triscaphe joint osteoarthritis. Thank you for letting us participate in the care of this patient. For questions regarding this report, please contact the number below. ? Electronically signed by: RAHEEL Vazquez [facility] ([phone]), at 11/08/2018 1:41 PM Narrative 11/08/2018 1:41 [...] contact the number below. Yamile Pimentel DO IMDulce DX ORDERABLES documented in this encounter Visit Diagnoses Diagnosis Pain in left wrist Pain in joint, forearm documented in this encounter Care Teams Instrument Tester Relationship Specialty Start Date End Date Dewayne Carrington MD PCP - General 09/02/16 05/08/24 documented as of this encounter
--- OUTSIDE RECORDS SUMMARY | 2024-05-24 14:28 | XMS_ITS | Encounter Summary ---
Author [facility] [place] [address] Care Team Providers Care Technical Support Representative Name Role Phone Dewayne Carrington MD Primary Care Provider [phone] Encounter Details Date Type Department Care Team (Late st Contact Info) Description 05/17/2019 External Results Cardiology at [address] [phone] Dewayne Carrington MD [address] [place] [address] [phone] Social History Tobacco Use Types Packs/Day Years [...] AM EST Hospital Encounter Non-Invasive [place] [address] Arrived 08/09/2024 10:00 AM EDT Hospital Encounter Non-Invasive [place] [address] Arrived documented as of this encounter Procedures Procedure Name Priority Date/Time Associated Diagnosis Comments EP DEVICE SCAN Routine 05/05/2019 documented in this encounter Results * Scan Doc: EP Device (05/05/2019) Anatomical Region Laterality Modality Other Dewayne Carrington MD MEDIA MGR SCAN EXT O RDR/RSLT documented in this encounter Visit Diagnoses Not on filedocumented in this encounter Care Teams Technical Support Representative Relationship Specialty Start Date End Date Dewayne Carrington MD PCP - General 09/02/16 05/08/24 documented as of this encounter
--- OUTSIDE RECORDS SUMMARY | 2024-05-24 14:28 | XMS_ITS | Encounter Summary ---
Author Organization [facility] [place] [address] Care Team Providers Care Catechist Name Role Phone Dewayne Carrington MD Primary Care Provider [phone] Reason for Visit * Consultation (Routine) - Closed Specialty Diagnoses / Procedures Referred By Rosa t Referred To Contact Rheumatology Diagnoses Pain in right wrist Honorio Vasquez MD [facility] [place] [address] [facility] [address] [place] [address] Referral ID Status Reason Start Date Expiration Date V isits Requested Visits Authorized [id number] Closed Consult, Test & Treat 07/19/2018 07/19/2019 1 1 Encounter Details Date Type Department Care Team (Late st Contact Info) Description 09/01/2018 11:00 AM EDT Office [place] [address] Lee Ann Loaiza MD Raised [...] a 68-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 [...] Phalen's test negative. Full fist, claw, good broach setter. 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 for evaluation of right [...] AM EST Hospital Encounter Non-Invasive Cardiology Lab [facility] [place] [address] Arrived 08/09/2024 10:00 AM EDT Hospital Encounter Non-Invasive Cardiology Lab [facility] [place] [address] Arrived documented as of this encounter Procedures [...] Uric Acid 4.7 3.5 - 8.5 mg/dL [facility] Blood specimen (specimen) 09/01/2018 12:29 PM EDT 09/01/2018 12:36 PM EDT Narrative Resulting Agency Comment Spec In Lab Lee Ann Loaiza MD CHEMISTRY ORDERABLES [facility] [place] [address] * (ABNORMAL) Comprehensive metabolic panel (non-fasting) (09/01/2018 12:29 PM EDT) Glucose 161 65 - 199 mg/dL [facility] Comment:Diabetes: >=200 mg/d L plus symptoms Blood Urea Nitrogen 14 10 - 20 mg/dL [facility] Creatinine 0.92 0.80 - 1.50 mg/dL [facility] Sodium 140 135 - 145 mmol/L [facility] Potassium 4.4 3.5 - 5.0 mmol/L [facility] Comment: Please note: ??Patients with WBC >100,000 may have falsely elevated Potassium levels. ??For accurate Potassium quantification in these patients send serum separator tube ([facility] top) for subsequent determinations. ??Contact the Clinical Chemistry Laboratory if there are any questions. Chloride 102 98 - 107 mmol/L [facility] Carbon Dioxide 24 22 - 31 mmol/L [facility] Anion Gap 14 5 - 15 mmol/L [facility] Calcium 9.3 8.5 - 10.5 mg/dL [facility] Protein, Total 7.5 6.1 - 8.0 gm/dL [facility] Albumin 4.6 3.2 - 5.2 gm/dL [facility] Aspartate Aminotransferase 41(H) 0 - 39 unit/L [facility] Alanine Aminotransferase 41 0 - 55 unit/L [facility] Alkaline Phosphatase 70 40 - 120 unit/L [facility] Bilirubin, Total 0.4 0.2 - 1.3 mg/dL [facility] Est Glomerular Filtration Rate 85 >=60 mL/min/1. 73 m?? [facility] Comment: The eGFR was calculated using the CKD-EPI equation. As with all creatinine based estimates of kidney function, eGFR values calculated with the CKD-EPI equation are not accurate in patients with acute kidney failure, extremes of body mass or the acutely ill. [email or web address] eGFR 98 >=60 mL/min/1. 73 m?? [facility] Comment: The eGFR was calculated using the CKD-EPI equation. As with all creatinine based estimates of kidney function, eGFR values calculated with the CKD-EPI equation are not accurate in patients with acute kidney failure, extremes of body mass or the acutely ill. [email or web address] Blood specimen (specimen) 09/01/2018 12:29 PM EDT 09/01/2018 12:36 PM EDT Narrative Resulting Agency Comment Spec In Lab Lee Ann Loaiza MD CHEMISTRY ORDERABLES Performing Organization Address [facility]/ZIP Co de Phone Number [facility] [place] [address] * Sedimentation rate (09/01/2018 12:29 PM EDT) Sedimentation Rate Automated 6 0 - 15 mm/hr [facility] Blood specimen (specimen) 09/01/2018 12:29 PM EDT 09/01/2018 12:35 PM EDT Narrative Resulting Agency Comment Spec In Lab Lee Ann Loaiza MD HEMATOLOGY ORDERABLE S Performing Organization Address [facility] de Phone Number [facility] [place] [address] * Extractable Nuclear Antigen (MARLEEN) Ab (09/01/2018 12:29 PM EDT) MARLEEN Ab Test ?Result ?Flag ??Unit ??RefValue Ab to Extractable Nuclear Ag Eval,S ??SS-A/Ro Ab, IgG, S ?<0.2 ?U ? <1.0 (Negative) ??SS-B/La Ab, IgG, S ?<0.2 ?U ? <1.0 (Negative) ??Sm Ab, IgG, S ? <0.2 ?U ? <1.0 (Negative) ??MANAGER SEMICONDUCTOR Ab, IgG, S ?0.4 ? U ? <1.0 (Negative) ??Scl 70 Ab, IgG, S ? <0.2 ?U ? <1.0 (Negative) ??Jaylin 1 Ab, IgG, S ? <0.2 ?U ? <1.0 (Negative) ?Test Performed by: ?[facility] ?[address] [place], [place] [address] [place] [address] LABORATORY Blood specimen (specimen) 09/01/2018 12:29 PM EDT 09/01/2018 1:32 PM EDT Narrative Resulting Agency Comment Spec In Lab Lee Ann Loaiza MD LAB SEND OUT ORDERAB LES [facility] [place] [address] * Rheumatoid factor, quant (09/01/2018 12:29 PM EDT) Rheumatoid Factor <10 <=14 IU/mL [facility] Blood specimen (specimen) 09/01/2018 12:29 PM EDT 09/01/2018 12:36 PM EDT Narrative Resulting Agency Comment Spec In Lab Lee Ann Loaiza MD CHEMISTRY ORDERABLES [facility] [place] [address] documented in this encounter Visit Diagnoses Diagnosis Raised antibody titer Other and unspecified nonspecific immunological findings Arthralgia, unspecified joint Cervicalgia Chronic midline low back pain with left-sided sciatica documented in this encounter Care Teams Catechist Relationship Specialty Start Date End Date Dewayne Carrington MD PCP - General 09/02/16 05/08/24 documented as of this encounter
--- OUTSIDE RECORDS SUMMARY | 2024-05-24 14:28 | XMS_ITS | Encounter Summary ---
[place] [address] Care Team Providers Care Office Machine Technician Name Role Phone Dewayne Carrington MD Primary Care Provider [phone] Reason for Referral * Consultation (Routine) - Closed Specialty Diagnoses / Procedures Referred By Conteddie t Referred To Contact Rheumatology Diagnoses Pain in right wrist Honorio Vasquez MD [facility] [address] [place] [address] [facility] [address] [place] [address] Referral ID Status Reason Start Date Expiration Date V isits Requested Visits Authorized [id number] Closed Consult, Test & Treat 07/19/2018 07/19/2019 1 1 Encounter Details Date Type Department Care Team (Late st Contact Info) Description 07/19/2018 8:00 AM EDT Telephone [place] [phone] Honorio Vasquez MD [facility] DR [place] [address] Social History Tobacco Use Types [...] AM EST Hospital Encounter [place] [address] Arrived 08/09/2024 10:00 AM EDT Hospital Encounter [place] [address] Arrived Scheduled Referrals Name Type Priority Associated Diagnoses Order Schedule Referral to Rheumatology Outpatient Referral Routine Pain in right wrist Ordered: 07/19/2018 documented as of this encounter Visit Diagnoses Diagnosis Pain in right wrist Pain in joint, forearm documented in this encounter Care Teams Office Machine Technician Relationship Specialty Start Date End Date Dewayne Carrington MD PCP - General 09/02/16 05/08/24 documented as of this encounter
--- OUTSIDE RECORDS SUMMARY | 2024-05-24 14:28 | XMS_ITS | Encounter Summary ---
Author Organization [facility] Address [facility] [place] [address] Care Team Providers Care Beam Machine Operator Name Role Phone Dewayne Carrington MD Primary Care Provider [phone] Reason for Visit * Reason Onset Date Comments Questions 03/04/2018 Encounter Details Date Type Department Care Team (Late st Contact Info) Description 03/04/2018 Telephone [place] [phone] Honorio Vasquez MD [facility] [address] [place] [address] Questions Social History Tobacco Use Types Packs/Day [...] 11:29 AM EST The MRI director of public safety reviewed 's defibrillator information and determined that it was not MRI compatible. I informed who was disappointed but says that he will keep his follow appointment with . I send a note to informing him and asked if he wanted a different x- ray ordered. * Telephone Encounter - KareemFrancine - 03/04/2018 3:47 PM EST Mr. Hendrix called requesting to have the MRI Dr. Vasquez had mentioned at his last visit (02/17/18). Mr. Hendrix has also requested to be scheduled for the MRI before his next appointment with Dr. Vasquez on 03/17/18. Best number to contact Mr. Hendrix for [phone] documented in this encounter Plan of Treatment Upcoming Encounters Date Type Department Care Team (Late st Contact Info) Description 06/15/2024 10:00 AM EST Hospital Encounter [place] [address] Arrived 08/09/2024 10:00 AM EDT Hospital Encounter [place] [address] Arrived documented as of this encounter Visit Diagnoses Not on filedocumented in this encounter Care Teams Beam Machine Operator Relationship Specialty Start Date End Date Dewayne Carrington MD PCP - General 09/02/16 05/08/24 documented as of this encounter
--- OUTSIDE RECORDS SUMMARY | 2024-05-24 14:28 | XMS_ITS | Encounter Summary ---
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 Full fist, claw, good log clerk. NO MCP compression tenderness. 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
--- OUTSIDE RECORDS SUMMARY | 2024-05-24 14:28 | XMS_ITS | Encounter Summary ---
Author Organization [facility] [place] [address] Care Team Providers Care Traveling Accountant Name Role Phone Dewayne Carrington MD Primary Care Provider [phone] Encounter Details Date Type Department Care Team (Late st Contact Info) Description 11/08/2018 10:30 AM EDT Procedure visit [place] [address] Yamile Pimentel, [facility] [place] [address] Pain in left wrist; Degenerative tear of [...] Images are available on the Rheumatology [employer]. Images of the left Wrist demonstrate [...] AM EST Hospital Encounter Non[place] [address] Arrived 08/09/2024 10:00 AM EDT Hospital Encounter [place] [address] Arrived documented as of this encounter Results [...] Electronically signed by: Derrell Lynn [facility] ([phone]), at 11/08/2018 1:47 PM Narrative 11/08/2018 1:47 [...] forearm documented in this encounter Care Teams Traveling Accountant Relationship Specialty Start Date End Date Dewayne Carrington MD PCP - General 09/02/16 05/08/24 documented as of this encounter
--- OUTSIDE RECORDS SUMMARY | 2024-05-24 14:28 | XMS_ITS | Encounter Summary ---
Author Organization [facility] [place] [address] Care Team Providers Care Public Records Researcher Name Role Phone Dewayne Carrington MD Primary Care Provider [phone] Encounter Details Date Type Department Care Team (Late st Contact Info) Description 01/26/2019 External Results Cardiology at [address] [phone] Dewayne Carrington MD [address] [place] [phone] Social History Tobacco Use Types Packs/Day Years [...] AM EST Hospital Encounter Non-[place] [address] Arrived 08/09/2024 10:00 AM EDT Hospital Encounter Non-[place] [address] Arrived documented as of this encounter Procedures Procedure Name Priority Date/Time Associated Diagnosis Comments EP DEVICE SCAN Routine 01/20/2019 documented in this encounter Results * Scan Doc: EP Device (01/20/2019) Anatomical Region Laterality Modality Other Dewayne Carrington MD MEDIA MGR SCAN EXT O RDR/RSLT documented in this encounter Visit Diagnoses Not on filedocumented in this encounter Care Teams Public Records Researcher Relationship Specialty Start Date End Date Dewayne Carrington MD PCP - General 09/02/16 05/08/24 documented as of this encounter
--- OUTSIDE RECORDS SUMMARY | 2024-05-24 14:28 | XMS_ITS | Encounter Summary ---
Author Organization [facility] [place] [address] Care Team Providers Care Application Integrator Name Role Phone Dewayne Carrington MD Primary Care Provider [phone] Reason for Visit * Reason Comments Wound Care * Consultation (Routine) - Specialty Diagnoses / Procedures Referred By Contac t Referred To Contact Wound Care Diagnoses Pressure ulcer of unspecified buttock, unspecified stage PRESSURE ULCER, BUTTOCK Dewayne Carrington MD [address] [place] [address] [facility] [place] [address] Referral ID Status Reason Start Date Expiration Date V isits Requested Visits Authorized [id number] Consult, Test & Treat Connection Center 09/28/2018 12/29/2018 6 6 Encounter Details Date Type Department Care Team (Late st Contact Info) Description 12/22/2018 4:00 PM EDT Office [place] [address] Kisha Reeves APRN Pressure injury [...] Beef, chicken, fish Beans, Lentils, peanut butter Mauritanian and regular yogurt Cheese, eggs Boost, Ensure shakes Protein powder in a smoothie of your choice documented in this encounter Progress Notes * Kisha Reeves APRN - 12/22/2018 4:00 PM EDT Images from the original note were not included. [facility] Initial Consultation Note [...] on phone: None Gets together: None Attends sabianist service: None Active member of club or [...] his daughter. 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 Diagnostics: ERIKA's: n/a Imaging: none pertinent [...] in NAD Mobility: independent Edema: none Periwound: [place], blanchable Wound bed:pink, blanchable Exudate:none Odor: none Blanchable erythema over the katherine cleft, no open areas Wound Location Measurements Tunneling/undermining Wound bed Tina wound skin Right ischium 1.0 x 1.0 cm area none Blanchable erythema [place], blanchable ?? PHOTOS taken today: buttocks Wound [...] Beef, chicken, fish Beans, Lentils, peanut butter Mauritanian and regular yogurt Cheese, eggs Boost, Ensure shakes Protein powder in a smoothie of your choice Cc: Dewayne Carrington MD [address] [facility] [address] PCP: Dewayne Carrington MD documented in this encounter Plan of Treatment Upcoming Encounters Date Type Department Care Team (Late st Contact Info) Description 06/15/2024 10:00 AM EST Hospital Encounter Non-[place]vasive [place] [address] Arrived 08/09/2024 10:00 AM EDT Hospital Encounter Non-Invasive [place] [address] Arrived documented as of this encounter Visit Diagnoses Diagnosis Pressure injury of right buttock, stage 1 documented in this encounter Care Teams Application Integrator Relationship Specialty Start Date End Date Dewayne Carrington MD PCP - General 09/02/16 05/08/24 documented as of this encounter
--- OUTSIDE RECORDS SUMMARY | 2024-05-24 14:28 | XMS_ITS | Encounter Summary ---
Author Organization [facility] [place] [address] Care Team Providers Care Curator Of Manuscripts Name Role Phone Dewayne Carrington MD Primary Care Provider [phone] Encounter Details Date Type Department Care Team (Late st Contact Info) Description 05/01/2019 Orders Only Cardiology at [address] [address] Social History Tobacco Use Types Packs/Day Years [...] AM EST Hospital Encounter Non-Invasive [place] [address] Arrived 08/09/2024 10:00 AM EDT Hospital Encounter Non-Invasive [place] [address] Arrived documented as of this encounter Procedures [...] PMC IDCO Battery Date Time of Measurements [id number] IDCO Battery Status Beginning of Service IDCO [...] Therapy Details Presenting EGM IDCO Episode Identifier [id number] IDCO Episode Date Time IDCO Episode Type Category VT IDCO Episode Vendor Type Category NSVT IDCO Episode Type Induced Flag NO IDCO Episode Detection Interval Ventricular 429 ms IDCO Episode Duration 20 s IDCO Episode Detection And Therapy Details NonSustV IDCO Episode Identifier [id number] IDCO Episode Date Time IDCO Episode Type Category VT IDCO Episode Vendor Type Category NSVT IDCO Episode Type Induced Flag NO IDCO Episode Detection Interval Ventricular 377 ms IDCO Episode Duration 16 s IDCO Episode Detection And Therapy Details NonSustV IDCO Episode Identifier V-1900 IDCO Episode Date Time IDCO Episode Type Category VT IDCO Episode Vendor Type Category NSVT IDCO Episode Type Induced Flag NO IDCO Episode Detection Interval Ventricular 375 ms IDCO Episode Duration 5 s IDCO Episode Detection And Therapy Details NonSustV IDCO Episode Identifier [id number] IDCO Episode Date Time IDCO Episode Type Category VT IDCO Episode Vendor Type Category NSVT IDCO Episode Type Induced Flag NO IDCO Episode Detection Interval Ventricular 392 ms IDCO Episode Duration 5 s IDCO Episode Detection And Therapy Details NonSustV IDCO Episode Identifier V-189 IDCO Episode Date Time IDCO Episode Type Category VT IDCO Episode Vendor Type Category NSVT IDCO Episode Type Induced Flag NO IDCO Episode Detection Interval Ventricular 373 ms IDCO Episode Duration 14 s IDCO Episode Detection And Therapy Details NonSustV IDCO Episode Identifier [id number] IDCO Episode Date Time IDCO Episode Type [...] And Therapy Details NonSustV IDCO Episode Identifier [id number] IDCO Episode Date Time IDCO Episode Type [...] And Therapy Details ATR IDCO Episode Identifier [id number] IDCO Episode Date Time IDCO Episode Type [...] Detection And Therapy Details IDCO Episode Identifier [id number] IDCO Episode Date Time [id number] IDCO Episode Type Category Other IDCO Episode [...] Detection And Therapy Details IDCO Episode Identifier ATR-272 IDCO Episode Date Time IDCO Episode Type Category AT/AF IDCO Episode Vendor Type Category ATR IDCO Episode Detection Interval Atrial 247 ms IDCO Episode Duration 39 s IDCO Episode Detection And Therapy Details ATR IDCO Episode Identifier ATR-271 IDCO Episode Date Time [id number] IDCO Episode Type Category AT/AF IDCO Episode Vendor Type Category ATR IDCO Episode Detection Interval Atrial 870 ms IDCO Episode Duration 3 s IDCO Episode Detection And Therapy Details ATR IDCO Episode Identifier ATR-270 IDCO Episode Date Time [id number] IDCO Episode Type Category AT/AF IDCO Episode Vendor Type Category ATR IDCO Episode Detection Interval Atrial 230 ms IDCO Episode Duration 34,096 s IDCO Episode Detection And Therapy Details ATR IDCO Episode Identifier ATR-269 IDCO Episode Date Time [id number] IDCO Episode Type Category AT/AF IDCO Episode Vendor Type Category ATR IDCO Episode Detection Interval Atrial 232 ms IDCO Episode Duration 16 s IDCO Episode Detection And Therapy Details ATR IDCO Episode Identifier ATR-268 IDCO Episode Date Time [id number] IDCO Episode Type Category AT/AF IDCO Episode Vendor Type Category ATR IDCO Episode Detection Interval Atrial 241 ms IDCO Episode Duration 24,555 s IDCO Episode Detection And Therapy Details ATR IDCO Episode Identifier ATR-267 IDCO Episode Date Time [id number] IDCO Episode Type Category AT/AF IDCO Episode Vendor Type Category ATR IDCO Episode Detection Interval Atrial 496 ms IDCO Episode Duration 4 s IDCO Episode Detection And Therapy Details ATR IDCO Episode Identifier ATR-266 IDCO Episode Date Time [id number] IDCO Episode Type Category AT/AF IDCO Episode Vendor Type Category ATR IDCO Episode Detection Interval Atrial 273 ms IDCO Episode Duration 73 s IDCO Episode Detection And Therapy Details ATR IDCO Episode Identifier ATR-265 IDCO Episode Date Time [id number] IDCO Episode Type Category AT/AF IDCO Episode [...] E162 IDCO Implantable Pulse Generator Serial Number [id number] IDCO Implantable Pulse Generator Home Care Manager Blurr IDCO Implantable Pulse Generator Implant Date 20140110 IDCO Implantable Lead Model 4136 IDCO Implantable Lead Serial Number [id number] IDCO Implantable Lead Home Care Manager sifonr IDCO Implantable Lead Implant Date 20130421 IDCO Implantable Lead Polarity Type Bipolar Lead IDCO Implantable Lead Location Right Atrium IDCO Implantable Lead Model 0292 IDCO Implantable Lead Serial Number [id number] IDCO Implantable Lead Home Care Manager Blurr IDCO Implantable Lead Implant Date IDCO Implantable [...] IDCO Lead Channel Pacing Threshold Measurement Method Education Supervisor Manual IDCO Lead Channel Pacing Threshold [...] IDCO Lead Channel Pacing Threshold Measurement Method Education Supervisor Manual IDCO Lead Channel Pacing Threshold [...] on filedocumented in this encounter Care Teams Curator Of Manuscripts Relationship Specialty Start Date End Date Dewayne Carrington MD PCP - General 09/02/16 05/08/24 documented as of this encounter
--- OUTSIDE RECORDS SUMMARY | 2024-05-24 14:28 | XMS_ITS | Encounter Summary ---
Author Organization [facility] [place] [address] Care Team Providers Care Distribution Systems Serviceperson Name Role Phone Dewayne Carrington MD Primary Care Provider [phone] Encounter Details Date Type Department Care Team (Late st Contact Info) Description 01/13/2019 Orders Only Cardiology at [address] [address] Social History Tobacco Use Types Packs/Day Years [...] AM EST Hospital Encounter Non-[place] [address] Arrived 08/09/2024 10:00 AM EDT Hospital Encounter Non-[place]vasive [place] [address] Arrived documented as of this encounter Procedures Procedure Name Priority Date/Time Associated Diagnosis Comments CARDIAC DEVICE CHECK - REMOTE PATIENT INITIATED Routine 01/13/2019 4:20 PM EDT documented in this encounter Results * Cardiac device check - Remote Patient Initiated (01/13/2019 4:20 PM EDT) Date Time Interrogation Session [id number] IDCO Type Interrogation Session Remote Patient Initiated IDCO Clinic Name Gerry Carpio [facility] IDCO Battery Date Time of Measurements [id number] IDCO Battery Status Beginning of Service IDCO [...] Episode Identifier APM-32 IDCO Episode Date Time [id number] IDCO Episode Type Category Periodic EGM IDCO Episode Vendor Type Category APMRT IDCO Episode Detection And Therapy Details Presenting EGM IDCO Episode Identifier [id number] IDCO Episode Date Time [id number] IDCO Episode Type Category Other IDCO Episode Vendor Type Category XANDER IDCO Episode Detection Interval Ventricular 938 ms IDCO Episode Duration 59 s IDCO Episode Detection And Therapy Details IDCO Episode Identifier [id number] IDCO Episode Date Time [id number] IDCO Episode Type Category Other IDCO Episode Vendor Type Category XANDER IDCO Episode Detection Interval Ventricular 1,017 ms IDCO Episode Duration 62 s IDCO Episode Detection And Therapy Details IDCO Episode Identifier [id number] IDCO Episode Date Time [id number] IDCO Episode Type Category Other IDCO Episode Vendor Type Category XANDER IDCO Episode Detection Interval Ventricular 1,053 ms IDCO Episode Duration 57 s IDCO Episode Detection And Therapy Details IDCO Episode Identifier [id number] IDCO Episode Date Time [id number] IDCO Episode Type Category Other IDCO Episode Vendor Type Category XNADER IDCO Episode Detection Interval Ventricular 968 ms IDCO Episode Duration 57 s IDCO Episode Detection And Therapy Details IDCO Episode Identifier [id number] IDCO Episode Date Time [id number] IDCO Episode Type Category Other IDCO Episode Vendor Type Category XANDER IDCO Episode Detection Interval Ventricular 923 ms IDCO Episode Duration 56 s IDCO Episode Detection And Therapy Details [facility] Episode [id number] Episode Date Time IDCO Episode Type Category Other IDCO Episode Vendor Type Category XANDER IDCO Episode Detection Interval Ventricular 968 ms IDCO Episode Duration 58 s IDCO Episode Detection And Therapy Details [facility] IDCO Episode Identifier [id number] Episode Date Time IDCO Episode Type Category Other IDCO Episode Vendor Type Category XANDER IDCO Episode Detection Interval Ventricular 1,034 ms IDCO Episode Duration 54 s IDCO Episode Detection And Therapy Details [facility] IDCO Episode Identifier [id number] Episode Date Time IDCO Episode Type Category Other IDCO Episode Vendor Type Category XANDER IDCO Episode Detection Interval Ventricular 952 ms IDCO Episode Duration 58 s IDCO Episode Detection And Therapy Details [facility] IDCO Episode Identifier [id number] Episode Date Time IDCO Episode Type Category Other IDCO Episode Vendor Type Category XANDER IDCO Episode Detection Interval Ventricular 1,000 ms IDCO Episode Duration 57 s IDCO Episode Detection And Therapy Details [facility] IDCO Episode Identifier [id number] Episode Date Time IDCO Episode Type [...] Episode Identifier ATR-253 IDCO Episode Date Time [id number] IDCO Episode Type Category AT/AF IDCO Episode [...] Episode Identifier ATR-251 IDCO Episode Date Time [id number] IDCO Episode Type Category AT/AF IDCO Episode Vendor Type Category ATR IDCO Episode Detection Interval Atrial 274 ms IDCO Episode Duration 9 s IDCO Episode Detection And Therapy Details ATR IDCO Episode Identifier ATR-250 IDCO Episode Date Time [id number] IDCO Episode Type Category AT/AF IDCO Episode Vendor Type Category ATR IDCO Episode Detection Interval Atrial 271 ms IDCO Episode Duration 8 s IDCO Episode Detection And Therapy Details ATR IDCO Episode Identifier ATR-249 IDCO Episode Date Time [id number] IDCO Episode Type Category AT/AF IDCO Episode Vendor Type Category ATR IDCO Episode Detection Interval Atrial 263 ms IDCO Episode Duration 64 s IDCO Episode Detection And Therapy Details ATR IDCO Episode Identifier ATR-248 IDCO Episode Date Time [id number] IDCO Episode Type Category AT/AF IDCO Episode Vendor Type Category ATR IDCO Episode Detection Interval Atrial 280 ms IDCO Episode Duration 984 s IDCO Episode Detection And Therapy Details ATR IDCO Episode Identifier ATR-247 IDCO Episode Date Time [id number] IDCO Episode Type Category AT/AF IDCO Episode Vendor Type Category ATR IDCO Episode Detection Interval Atrial 293 ms IDCO Episode Duration 300 s IDCO Episode Detection And Therapy Details ATR IDCO Episode Identifier ATR-246 IDCO Episode Date Time [id number] IDCO Episode Type Category AT/AF IDCO Episode Vendor Type Category ATR IDCO Episode Detection Interval Atrial 282 ms IDCO Episode Duration 8,736 s IDCO Episode Detection And Therapy Details ATR IDCO Episode Identifier ATR-245 IDCO Episode Date Time [id number] IDCO Episode Type Category AT/AF IDCO Episode [...] E162 IDCO Implantable Pulse Generator Serial Number [id number] IDCO Implantable Pulse Generator Front Desk Manager [place] [employer] IDCO Implantable Pulse Generator Implant Date 20140110 IDCO Implantable Lead Model 4136 IDCO Implantable Lead Serial Number [id number] IDCO Implantable Lead Front Desk Manager Guidant IDCO Implantable Lead Implant Date 20130421 IDCO Implantable Lead Polarity Type Bipolar Lead IDCO Implantable Lead Location Right Atrium IDCO Implantable Lead Model 0292 IDCO Implantable Lead Serial Number [id number] IDCO Implantable Lead Front Desk Manager [place] [employer] IDCO Implantable Lead Implant Date IDCO [...] IDCO Lead Channel Pacing Threshold Measurement Method Golf Cart Maker Manual IDCO Lead Channel Pacing Threshold [...] IDCO Lead Channel Pacing Threshold Measurement Method Golf Cart Maker Manual IDCO Lead Channel Pacing Threshold [...] on filedocumented in this encounter Care Teams Distribution Systems Serviceperson Relationship Specialty Start Date End Date Dewayne Carrington MD PCP - General 09/02/16 05/08/24 documented as of this encounter
--- OUTSIDE RECORDS SUMMARY | 2024-05-24 14:28 | XMS_ITS | Encounter Summary ---
Author Organization [facility] [address] Care Team Providers Care Overweaver Name Role Phone Dewayne Carrington MD Primary Care Provider [phone] Encounter Details Date Type Department Care Team (Late st Contact Info) Description 06/17/2019 Orders Only Cardiology at [address] [address] Social History Tobacco Use Types Packs/Day Years [...] AM EST Hospital Encounter [place] [address] Arrived 08/09/2024 10:00 AM EDT Hospital Encounter [place] [address] Arrived documented as of this encounter Procedures [...] PMC IDCO Battery Date Time of Measurements [id number] IDCO Battery Status Beginning of Service IDCO [...] Episode Identifier ATR-279 IDCO Episode Date Time [id number] IDCO Episode Type Category AT/AF IDCO Episode Vendor Type Category ATR IDCO Episode Detection Interval Atrial 258 ms IDCO Episode Duration 90,751 s IDCO Episode Detection And Therapy Details ATR IDCO Episode Identifier [id number] IDCO Episode Date Time [id number] IDCO Episode Type Category Other IDCO Episode Vendor Type Category XANDER IDCO Episode Detection Interval Ventricular 968 ms IDCO Episode Duration 57 s IDCO Episode Detection And Therapy Details [id number] Episode Date Time [id number] IDCO Episode Type Category Other IDCO Episode Vendor Type Category XANDER IDCO Episode Detection Interval Ventricular 909 ms IDCO Episode Duration 55 s IDCO Episode Detection And Therapy Details IDCO Episode Identifier [id number] IDCO Episode Date Time [id number] IDCO Episode Type Category Other IDCO Episode Vendor Type Category XANDER IDCO Episode Detection Interval Ventricular 923 ms IDCO Episode Duration 56 s IDCO Episode Detection And Therapy Details [facility] IDCO Episode Identifier [id number] IDCO Episode Date Time [id number] IDCO Episode Type Category Other IDCO Episode Vendor Type Category XANDER IDCO Episode Detection Interval Ventricular 952 ms IDCO Episode Duration 56 s IDCO Episode Detection And Therapy Details IDCO Episode Identifier [id number] IDCO Episode Date Time [id number] IDCO Episode Type Category Other IDCO Episode Vendor Type Category XANDER IDCO Episode Detection Interval Ventricular 938 ms IDCO Episode Duration 58 s IDCO Episode Detection And Therapy Details IDCO Episode Identifier MN40 IDCO Episode Date Time [id number] IDCO Episode Type Category Other IDCO Episode Vendor Type Category XANDER IDCO Episode Detection Interval Ventricular 1,017 ms IDCO Episode Duration 56 s IDCO Episode Detection And Therapy Details IDCO Episode Identifier MN39 IDCO Episode Date Time [id number] IDCO Episode Type Category Other IDCO Episode Vendor Type Category XANDER IDCO Episode Detection Interval Ventricular 938 ms IDCO Episode Duration 55 s IDCO Episode Detection And Therapy Details IDCO Episode Identifier MN38 IDCO Episode Date Time [id number] IDCO Episode Type Category Other IDCO Episode Vendor Type Category XANDER IDCO Episode Detection Interval Ventricular 984 ms IDCO Episode Duration 57 s IDCO Episode Detection And Therapy Details IDCO Episode Identifier MN37 IDCO Episode Date Time [id number] IDCO Episode Type Category Other IDCO Episode Vendor Type Category XANDER IDCO Episode Detection Interval Ventricular 952 ms IDCO Episode Duration 57 s IDCO Episode Detection And Therapy Details IDCO Episode Identifier MN36 IDCO Episode Date Time [id number] IDCO Episode Type Category Other IDCO Episode [...] And Therapy Details NonSustV IDCO Episode Identifier [id number] IDCO Episode Date Time IDCO Episode Type [...] E162 IDCO Implantable Pulse Generator Serial Number [id number] IDCO Implantable Pulse Generator Vice President Of Communications [place] Scientific IDCO Implantable Pulse Generator Implant Date 20140110 IDCO Implantable Lead Model 4136 IDCO Implantable Lead Serial Number [id number] IDCO Implantable Lead Vice President Of Communications Guidant IDCO Implantable Lead Implant Date 20130421 IDCO Implantable Lead Polarity Type Bipolar Lead IDCO Implantable Lead Location Right Atrium IDCO Implantable Lead Model 0292 IDCO Implantable Lead Serial Number [id number] IDCO Implantable Lead Vice President Of Communications [place] Scientific IDCO Implantable Lead Implant Date IDCO [...] IDCO Lead Channel Pacing Threshold Measurement Method Telephone Information Supervisor Manual IDCO Lead Channel Pacing Threshold [...] IDCO Lead Channel Pacing Threshold Measurement Method Telephone Information Supervisor Manual IDCO Lead Channel Pacing Threshold [...] on filedocumented in this encounter Care Teams Overweaver Relationship Specialty Start Date End Date Dewayne Carrington MD PCP - General 09/02/16 05/08/24 documented as of this encounter
--- OUTSIDE RECORDS SUMMARY | 2024-05-24 14:28 | XMS_ITS | Encounter Summary ---
Author Organization [facility] [place] [address] Care Team Providers Care Analog Circuit Designer Name Role Phone Dewayne Carrington MD Primary Care Provider [phone] Encounter Details Date Type Department Care Team (Late st Contact Info) Description 01/20/2019 Orders Only Cardiology at [address] [address] Social History Tobacco Use Types Packs/Day Years [...] AM EST Hospital Encounter [place] [address] Arrived 08/09/2024 10:00 AM EDT Hospital Encounter [place] [address] Arrived documented as of this encounter Procedures Procedure Name Priority Date/Time Associated Diagnosis Comments CARDIAC DEVICE CHECK - REMOTE SCHEDULED Routine 01/20/2019 12:43 AM EDT documented in this encounter Results * Cardiac device check - Remote Scheduled (01/20/2019 12:43 AM EDT) Date Time Interrogation Session [id number] IDCO Type Interrogation Session Remote Scheduled IDCO Clinic Name [facility] IDCO Battery Date Time of Measurements [id number] IDCO Battery Status Beginning of Service IDCO Battery Remaining Longevity 78 mo IDCO Battery Remaining Percentage 90 % IDCO Capacitor Last Charge Date Time [id number] IDCO Capacitor Charge Time 10.8 s IDCO Capacitor Charge Type Reformation IDCO Capacitor Last Charge Date Time [id number] IDCO Capacitor Charge Time 3.8 s IDCO Capacitor Charge Energy 21 J IDCO Capacitor Charge Type Shock IDCO Episode Identifier APM-33 IDCO Episode Date Time IDCO Episode Type Category Periodic EGM IDCO Episode Vendor Type Category APMRT IDCO Episode Detection And Therapy Details Presenting EGM IDCO Episode Identifier [id number] IDCO Episode Date Time IDCO Episode Type Category Other IDCO Episode Vendor Type Category XANDER IDCO Episode Detection Interval Ventricular 952 ms IDCO Episode Duration 55 s IDCO Episode Detection And Therapy Details IDCO Episode Identifier [id number] IDCO Episode Date Time IDCO Episode Type Category Other IDCO Episode Vendor Type Category XANDER IDCO Episode Detection Interval Ventricular 938 ms IDCO Episode Duration 54 s IDCO Episode Detection And Therapy Details IDCO Episode Identifier [id number] IDCO Episode Date Time IDCO Episode Type Category Other IDCO Episode Vendor Type Category XANDER IDCO Episode Detection Interval Ventricular 938 ms IDCO Episode Duration 54 s IDCO Episode Detection And Therapy Details IDCO Episode Identifier V IDCO Episode Date [...] IDCO Episode Identifier IDCO Episode Date Time [id number] IDCO Episode Type Category VT IDCO Episode Vendor Type Category NSVT IDCO Episode Type Induced Flag NO IDCO Episode Detection Interval Ventricular 400 ms IDCO Episode Duration 6 s IDCO Episode Detection And Therapy Details NonSustV IDCO Episode Identifier IDCO Episode Date Time [id number] IDCO Episode Type Category VT IDCO Episode Vendor Type Category NSVT IDCO Episode Type Induced Flag NO IDCO Episode Detection Interval Ventricular 397 ms IDCO Episode Duration 5 s IDCO Episode Detection And Therapy Details NonSustV IDCO Episode Identifier IDCO Episode Date Time [id number] IDCO Episode Type Category VT IDCO Episode Vendor Type Category NSVT IDCO Episode Type Induced Flag NO IDCO Episode Detection Interval Ventricular 392 ms IDCO Episode Duration 88 s IDCO Episode Detection And Therapy Details NonSustV IDCO Episode Identifier IDCO Episode Date Time [id number] IDCO Episode Type Category VT IDCO Episode Vendor Type Category NSVT IDCO Episode Type Induced Flag NO IDCO Episode Detection Interval Ventricular 387 ms IDCO Episode Duration 6 s IDCO Episode Detection And Therapy Details NonSustV IDCO Episode Identifier IDCO Episode Date Time [id number] IDCO Episode Type Category VT IDCO Episode Vendor Type Category NSVT IDCO Episode Type Induced Flag NO IDCO Episode Detection Interval Ventricular 373 ms IDCO Episode Duration 8 s IDCO Episode Detection And Therapy Details NonSustV IDCO Episode Identifier [id number] IDCO Episode Date Time [id number] IDCO Episode Type Category Other IDCO Episode Vendor Type Category XANDER IDCO Episode Detection Interval Ventricular 896 ms IDCO Episode Duration 53 s IDCO Episode Detection And Therapy Details RYMIQ IDCO Episode Identifier IDCO Episode Date Time [id number] IDCO Episode Type Category VT IDCO Episode Vendor Type Category NSVT IDCO Episode Type Induced Flag NO IDCO Episode Detection Interval Ventricular 397 ms IDCO Episode Duration 6 s IDCO Episode Detection And Therapy Details NonSustV IDCO Episode Identifier IDCO Episode Date Time [id number] IDCO Episode Type Category VT IDCO Episode Vendor Type Category NSVT IDCO Episode Type Induced Flag NO IDCO Episode Detection Interval Ventricular 400 ms IDCO Episode Duration 11 s IDCO Episode Detection And Therapy Details NonSustV IDCO Episode Identifier [id number] IDCO Episode Date Time [id number] IDCO Episode Type Category VT IDCO Episode Vendor Type Category NSVT IDCO Episode Type Induced Flag NO IDCO Episode Detection Interval Ventricular 395 ms IDCO Episode Duration 12 s IDCO Episode Detection And Therapy Details NonSustV IDCO [id number] Episode Date Time [id number] IDCO Episode Type Category Other IDCO Episode Vendor Type Category XANDER IDCO Episode Detection Interval Ventricular 896 ms IDCO Episode Duration 55 s IDCO Episode Detection And Therapy Details [facility] IDCO [id number] Episode Date Time [id number] IDCO Episode Type Category Other IDCO Episode Vendor Type Category XANDER IDCO Episode Detection Interval Ventricular 938 ms IDCO Episode Duration 54 s IDCO Episode Detection And Therapy Details [facility] IDCO Episode [id number] Episode Date Time [id number] IDCO Episode Type Category Other IDCO Episode Vendor Type Category XANDER IDCO Episode Detection Interval Ventricular 1,034 ms IDCO Episode Duration 57 s IDCO Episode Detection And Therapy Details [facility] IDCO Episode Ident[id number] Episode Date Time [id number] IDCO Episode Type Category Other IDCO Episode Vendor Type Category XANDER IDCO Episode Detection Interval Ventricular 909 ms IDCO Episode Duration 54 s IDCO Episode Detection And Therapy Details [facility] IDCO Episode [id number] Episode Date Time [id number] IDCO Episode Type Category Other IDCO Episode Vendor Type Category XANDER IDCO Episode Detection Interval Ventricular 1,017 ms IDCO Episode Duration 52 s IDCO Episode Detection And Therapy Details [facility] IDCO Episode Identifier [id number] ID[facility] Episode Date Time [id number] IDCO Episode Type Category Other IDCO Episode [...] E162 IDCO Implantable Pulse Generator Serial Number [id number] IDCO Implantable Pulse Generator Back Padder [place] [employer] IDCO Implantable Pulse Generator Implant Date 20140110 IDCO Implantable Lead Model 4136 IDCO Implantable Lead Serial Number [id number] IDCO Implantable Lead Back Padder Guidant IDCO Implantable Lead Implant Date 20130421 IDCO Implantable Lead Polarity Type Bipolar Lead IDCO Implantable Lead Location Right Atrium IDCO Implantable Lead Model 0292 IDCO Implantable Lead Serial Number [id number] IDCO Implantable Lead Back Padder [place] [employer] IDCO Implantable Lead Implant Date IDCO [...] Lead Channel Pacing Threshold Measurement Method Account Executive Metalworking Manual IDCO Lead Channel Pacing Threshold Polarity [...] Lead Channel Pacing Threshold Measurement Method Account Executive Metalworking Manual IDCO Lead Channel Pacing Threshold Polarity [...] on filedocumented in this encounter Care Teams Analog Circuit Designer Relationship Specialty Start Date End Date Dewayne Carrington MD PCP - General 09/02/16 05/08/24 documented as of this encounter
--- OUTSIDE RECORDS SUMMARY | 2024-05-24 14:28 | XMS_ITS | Encounter Summary ---
[place] [address] Care Team Providers Care Pump Rebuilder Name Role Phone Dewayne Carrington MD Primary Care Provider [phone] Reason for Visit * Reason Onset Date Comments Questions 01/03/2019 [facility] co ntact Encounter Details Date Type Department Care Team (Late Contact Info) Description 01/03/2019 [place] [address] Sita Fu RN Questions ([facility] contact) Social History Tobacco Use Types [...] 11:08 AM EDT Spoke with radiology in [facility], they state they will not complete [...] injection planned? Does he needfollow with Rheumatology? [phone] Thanks. documented in this encounter Plan of Treatment Upcoming Encounters Date Type Department Care Team (Late st Contact Info) Description 06/15/2024 10:00 AM EST Hospital Encounter [place] [address] Arrived 08/09/2024 10:00 AM EDT Hospital Encounter [place] [address] Arrived documented as of this encounter Visit Diagnoses Not on filedocumented in this encounter Care Teams Pump Rebuilder Relationship Specialty Start Date End Date Dewayne Carrington MD PCP - General 09/02/16 05/08/24 documented as of this encounter
--- OUTSIDE RECORDS SUMMARY | 2024-05-24 14:28 | XMS_ITS | Encounter Summary ---
Author [facility] [place] [address] Care Team Providers Care Utility Operator Yarn Name Role Phone Dewayne Carrington MD Primary Care Provider [phone] Encounter Details Date Type Department Care Team (Late st Contact Info) Description 05/05/2019 Orders Only Cardiology at [address] [address] Social History Tobacco Use Types Packs/Day Years [...] AM EST Hospital Encounter [place] [address] Arrived 08/09/2024 10:00 AM EDT Hospital Encounter [place] [address] Arrived documented as of this encounter Procedures [...] E162 IDCO Implantable Pulse Generator Serial Number [id number] IDCO Implantable Pulse Generator Wire Web Worker [place] Scientific IDCO Implantable Pulse Generator Implant Date 20140110 IDCO Implantable Lead Model 4136 IDCO Implantable Lead Serial Number [id number] IDCO Implantable Lead Wire Web Worker Guidant IDCO Implantable Lead Implant Date 20130421 IDCO Implantable Lead Polarity Type Bipolar Lead IDCO Implantable Lead Location Right Atrium IDCO Implantable Lead Model 0292 IDCO Implantable Lead Serial Number [id number] IDCO Implantable Lead Wire Web Worker [place] Scientific IDCO Implantable Lead Implant Date [...] IDCO Lead Channel Pacing Threshold Measurement Method Wind Farm Operations Manager Manual IDCO Lead Channel Pacing Threshold [...] IDCO Lead Channel Pacing Threshold Measurement Method Wind Farm Operations Manager Manual IDCO Lead Channel Pacing Threshold [...] on filedocumented in this encounter Care Teams Utility Operator Yarn Relationship Specialty Start Date End Date Dewayne Carrington MD PCP - General 09/02/16 05/08/24 documented as of this encounter
--- OUTSIDE RECORDS SUMMARY | 2024-05-24 14:28 | XMS_ITS | Encounter Summary ---
Author Organization [facility] [place] [address] Care Team Providers Care Room Service Attendant Name Role Phone Dewayne Carrington MD Primary Care Provider [phone] Encounter Details Date Type Department Care Team (Late st Contact Info) Description 02/07/2019 Telephone Cardiology at [address] [phone] [place] Penn LNA Social History Tobacco Use [...] Zarate LNA - 02/07/2019 11:50 AM EDT [facility] Visit Date - 09/03/2018 Medications reviewed since appointment at [facility]. I did not change medication. documented in this encounter Plan of Treatment Upcoming Encounters Date Type Department Care Team (Late st Contact Info) Description 06/15/2024 10:00 AM EST Hospital Encounter [place] [address] Arrived 08/09/2024 10:00 AM EDT Hospital Encounter [place] [address] Arrived documented as of this encounter Visit Diagnoses Not on filedocumented in this encounter Care Teams Room Service Attendant Relationship Specialty Start Date End Date Dewayne Carrington MD PCP - General 09/02/16 05/08/24 documented as of this encounter
--- OUTSIDE RECORDS SUMMARY | 2024-05-24 14:28 | XMS_ITS | Encounter Summary ---
Author Organization [facility] [place] [address] Care Team Providers Care Visual Presentation Manager Name Role Phone Dewayne Carrington MD Primary Care Provider [phone] Encounter Details Date Type Department Care Team (Late st Contact Info) Description 05/05/2019 Telephone Cardiology at [address] [phone] Daniela Lacy RN Social History Tobacco Use [...] to have a cardioversion on 05/13/[address] [facility]. Patient plans on continuing his cardiac care with Dr. Zabala up at [facility]. Daniela Lacy RN Ambulatory Cardiovascular [facility] General Team-Twan documented in this encounter Plan of Treatment Upcoming Encounters Date Type Department Care Team (Late st Contact Info) Description 06/15/2024 10:00 AM EST Hospital Encounter Non-Invasive [place] [address] Arrived 08/09/2024 10:00 AM EDT Hospital Encounter Non-[place]vasive [place] [address] Arrived documented as of this encounter Visit Diagnoses Not on filedocumented in this encounter Care Teams Visual Presentation Manager Relationship Specialty Start Date End Date Dewayne Carrington MD PCP - General 09/02/16 05/08/24 documented as of this encounter
--- OUTSIDE RECORDS SUMMARY | 2024-05-24 14:29 | XMS_ITS | Encounter Summary ---
Author Organization [facility] [place] [address] Care Team Providers Care Cash Grain Farmer Name Role Phone Dewayne Carrington MD Primary Care Provider [phone] Encounter Details Date Type Department Care Team (Late st Contact Info) Description 09/11/2016 External Results Cardiology at [address] [phone] Kit Self MD [facility] [place] [address] Social History Tobacco Use Types Packs/Day Years [...] AM EST Hospital Encounter Non-[place] [address] Arrived 08/09/2024 10:00 AM EDT Hospital Encounter Non-[place] [address] Arrived documented as of this encounter Procedures Procedure Name Priority Date/Time Associated Diagnosis Comments EP DEVICE SCAN Routine 09/04/2016 documented in this encounter Results * Scan Doc: EP Device (09/04/2016) Anatomical Region Laterality Modality Other Kit Self MD MEDIA MGR SCAN EXT O RDR/RSLT documented in this encounter Visit Diagnoses Not on filedocumented in this encounter Care Teams Cash Grain Farmer Relationship Specialty Start Date End Date Dewayne Carrington MD PCP - General 09/02/16 05/08/24 documented as of this encounter
--- OUTSIDE RECORDS SUMMARY | 2024-05-24 14:29 | XMS_ITS | Encounter Summary ---
Author Organization [facility] [place] [address] Care Team Providers Care Medical Parasitologist Name Role Phone Dewayne Carrington MD Primary Care Provider [phone] Encounter Details Date Type Department Care Team (Late st Contact Info) Description 10/14/2017 Telephone Cardiology at [address] [phone] Chante Robertson RN Social [...] yellow, I gave him the number to [facility] and [facility] get connected-to further trouble shoot his connectivity issue documented in this encounter Plan of Treatment Upcoming Encounters Date Type Department Care Team (Late st Contact Info) Description 06/15/2024 10:00 AM EST Hospital Encounter Non-[place] [address] Arrived 08/09/2024 10:00 AM EDT Hospital Encounter Non-[place]vasive [place] [address] Arrived documented as of this encounter Visit Diagnoses Not on filedocumented in this encounter Care Teams Medical Parasitologist Relationship Specialty Start Date End Date Dewayne Carrington MD PCP - General 09/02/16 05/08/24 documented as of this encounter
--- OUTSIDE RECORDS SUMMARY | 2024-05-24 14:29 | XMS_ITS | Encounter Summary ---
Author Organization [facility] [place] [address] Care Team Providers Care Tool Sharpener Name Role Phone Dewayne Carrington MD Primary Care Provider [phone] Encounter Details Date Type Department Care Team (Late st Contact Info) Description 01/06/2017 Orders Only Cardiology at [address] [phone] Social History Tobacco Use Types Packs/Day Years [...] AM EST Hospital Encounter Non-[place] [address] Arrived 08/09/2024 10:00 AM EDT Hospital Encounter Non-[place]vasive [place] [address] Arrived documented as of this encounter Procedures [...] HOSPITAL IDCO Battery Date Time of Measurements [id number] IDCO Battery Status Beginning of Service IDCO [...] Therapy Details Presenting EGM IDCO Episode Identifier [id number] IDCO Episode Date Time IDCO Episode Type Category Other IDCO Episode Vendor Type Category XANDER IDCO Episode Detection Interval Ventricular 1,000 ms IDCO Episode Duration 56 s IDCO Episode Detection And Therapy Details IDCO Episode Identifier [id number] IDCO Episode Date Time IDCO Episode Type Category Other IDCO Episode Vendor Type Category XANDER IDCO Episode Detection Interval Ventricular 1,333 ms IDCO Episode Duration 60 s IDCO Episode Detection And Therapy Details IDCO Episode Identifier [id number] IDCO Episode Date Time IDCO Episode Type Category Other IDCO Episode Vendor Type Category XANDER IDCO Episode Detection Interval Ventricular 1,000 ms IDCO Episode Duration 52 s IDCO Episode Detection And Therapy Details IDCO Episode Identifier [id number] IDCO Episode Date Time IDCO Episode Type Category Other IDCO Episode Vendor Type Category XANDER IDCO Episode Detection Interval Ventricular 952 ms IDCO Episode Duration 54 s IDCO Episode Detection And Therapy Details IDCO Episode Identifier [id number] IDCO Episode Date Time IDCO Episode Type Category Other IDCO Episode Vendor Type Category XANDER IDCO Episode Detection Interval Ventricular 923 ms IDCO Episode Duration 53 s IDCO Episode Detection And Therapy Details IDCO Episode Identifier [id number] IDCO Episode Date Time [id number] IDCO Episode Type Category Other IDCO Episode Vendor Type Category XANDER IDCO Episode Detection Interval Ventricular 1,034 ms IDCO Episode Duration 62 s IDCO Episode Detection And Therapy Details IDCO Episode Identifier [id number] IDCO Episode Date Time [id number] IDCO Episode Type Category Other IDCO Episode Vendor Type Category XANDER IDCO Episode Detection Interval Ventricular 1,176 ms IDCO Episode Duration 63 s IDCO Episode Detection And Therapy Details IDCO Episode Identifier [id number] IDCO Episode Date Time [id number] IDCO Episode Type Category Other IDCO Episode Vendor Type Category XANDER IDCO Episode Detection Interval Ventricular 1,053 ms IDCO Episode Duration 60 s IDCO Episode Detection And Therapy Details IDCO Episode Identifier [id number] IDCO Episode Date Time IDCO Episode Type Category Other IDCO Episode Vendor Type Category XANDER IDCO Episode Detection Interval Ventricular 1,034 ms IDCO Episode Duration 53 s IDCO Episode Detection And Therapy Details IDCO Episode Identifier [id number] IDCO Episode Date Time [id number] IDCO Episode Type Category Other IDCO Episode Vendor Type Category XANDER IDCO Episode Detection Interval Ventricular 1,034 ms IDCO Episode Duration 64 s IDCO Episode Detection And Therapy Details Q IDCO Episode Identifier ATR-126 IDCO Episode Date Time [id number] IDCO Episode Type Category AT/AF IDCO Episode Vendor Type Category ATR IDCO Episode Detection Interval Atrial 243 ms IDCO Episode Duration 51 s IDCO Episode Detection And Therapy Details ATR IDCO Episode Identifier ATR-125 IDCO Episode Date Time [id number] IDCO Episode Type Category AT/AF IDCO Episode Vendor Type Category ATR IDCO Episode Detection Interval Atrial 267 ms IDCO Episode Duration 33 s IDCO Episode Detection And Therapy Details ATR IDCO Episode Identifier ATR-124 IDCO Episode Date Time [id number] IDCO Episode Type Category AT/AF IDCO Episode Vendor Type Category ATR IDCO Episode Detection Interval Atrial 213 ms IDCO Episode Duration 136 s IDCO Episode Detection And Therapy Details ATR IDCO Episode Identifier V-173 IDCO Episode Date Time [id number] IDCO Episode Type Category VT IDCO Episode Vendor Type Category NSVT IDCO Episode Type Induced Flag NO IDCO Episode Detection Interval Ventricular 397 ms IDCO Episode Duration 10 s IDCO Episode Detection And Therapy Details NonSustV IDCO Episode Identifier V-172 IDCO Episode Date Time [id number] IDCO Episode Type Category VT IDCO Episode Vendor Type Category NSVT IDCO Episode Type Induced Flag NO IDCO Episode Detection Interval Ventricular 382 ms IDCO Episode Duration 8 s IDCO Episode Detection And Therapy Details NonSustV IDCO Episode Identifier ATR-123 IDCO Episode Date Time [id number] IDCO Episode Type Category AT/AF IDCO Episode Vendor Type Category ATR IDCO Episode Detection Interval Atrial 242 ms IDCO Episode Duration 42 s IDCO Episode Detection And Therapy Details ATR IDCO Episode Identifier ATR-122 IDCO Episode Date Time [id number] IDCO Episode Type Category AT/AF IDCO Episode [...] E162 IDCO Implantable Pulse Generator Serial Number [id number] IDCO Implantable Pulse Generator Emissions Testing And Repair Technician [place] [employer] IDCO Implantable Pulse Generator Implant Date 20140110 IDCO Implantable Lead Model 4136 IDCO Implantable Lead Serial Number [id number] IDCO Implantable Lead Emissions Testing And Repair Technician Guidant IDCO Implantable Lead Implant Date 20130421 IDCO Implantable Lead Polarity Type Bipolar Lead IDCO Implantable Lead Location Right Atrium IDCO Implantable Lead Model 0292 IDCO Implantable Lead Serial Number [id number] IDCO Implantable Lead Emissions Testing And Repair Technician [place] [employer] IDCO Implantable Lead Implant Date IDCO [...] IDCO Lead Channel Pacing Threshold Measurement Method Body Service Team Member Manual IDCO Lead Channel Pacing Threshold [...] IDCO Lead Channel Pacing Threshold Measurement Method Body Service Team Member Manual IDCO Lead Channel Pacing Threshold [...] on filedocumented in this encounter Care Teams Tool Sharpener Relationship Specialty Start Date End Date Dewayne Carrington MD PCP - General 09/02/16 05/08/24 documented as of this encounter
--- OUTSIDE RECORDS SUMMARY | 2024-05-24 14:29 | XMS_ITS | Encounter Summary ---
Author Organization [place] [address] Care Team Providers Care Morning Show Newscast Producer Name Role Phone Dewayne Carrington MD Primary Care Provider [phone] Reason for Referral * Diagnostic Test (Routine) - Closed Specialty Diagnoses / Procedures Referred By Contac t Referred To Contact Cardiology Diagnoses Coronary artery disease involving [place] coronary artery of [place] heart without angina pectoris Procedures Echocardiogram Transthoracic(Leb) Huy Butler MD [facility] [place] [place] [address] [facility] [place] [address] Referral ID Status Reason Start Date Expiration Date V isits Requested Visits Authorized [id number] Closed Specialty Service Requested 10/01/2016 10/01/2017 1 1 Encounter Details Date Type Department Care Team (Late st Contact Info) Description 10/01/2016 Orders [place] [address] Huy Butler MD [facility] [place] [address] Coronary artery disease involving [place] coronary artery of [place] heart without angina pectoris Social History Tobacco [...] AM EST Hospital Encounter Non-Invasive [place] [address] Arrived 08/09/2024 10:00 AM EDT Hospital Encounter Non-[place]vasive [place] [address] Arrived documented as of this encounter Results * ECHO COMPLETE W CONTRAST (11/06/2016 11:56 AM EDT) EF 49 HEARTLAB SYSTEM Anatomical Region Laterality Modality Other 11/06/2016 Narrative 11/06/2016 12:33 PM EDT Procedure: ?Transthoracic Echocardiogram Patient: ?PAMELA CHRISTIE P ?(Age): 1950(66y) Med Rec#: ? [id number] ?Sex: ?M ? Site Loc: ? [facility] ?Ht / Wt: ??185(cm)/91(kg) Pt. Loc: ?Echo Lab ?BSA: ?2.15 Study Date: ?? 11/06/2016 ?Pt. Type: Outpatient Tape: ? Referring: CAS Referring: Kit Self Reading: Huseyin Espinoza ([id number]) Flatwork Finisher: Stef Hayden Diagnosis: *ICD-10-PCS Atherosclerotic heart disease of [place] coronary artery without angina pectoris (I25.10) CPT Codes: *Echo Full (48890) *Spectral Doppler (96117) *Color Doppler (59045) *Optison (08048YQ) Rhythm: ? Paced rhythm BP: ? 115/72 [...] E-wave Vmax ?0.7 ?m/sec ? MV deceleration vznx203.6 ?msec ? MV A-wave Vmax ?0.7 ?m/sec [...] ? Mid-Inferior ?Hypokinetic ? Mid-Inferoseptal ?Normal ? [place]-Septal ? Normal ? [place]-Anterior ? Normal ? [place]-Lateral ?Normal ? [place]-Inferior ? Hypokinetic ? [place]-Tip ?Normal ? This report has been electronically signed by: Huseyin Espinoza MD ? 11/06/2016 12:33:49 Images reviewed and interpretation verified [facility] Cardiac Ultrasound Laboratory Procedure Note Huseyin Espinoza MD - 11/06/2016 Procedure: Transthoracic Echocardiogram Patient: PAMELA Gordon DOB(Age): 1950(66y) Med Rec#: [id number] Sex: M Site Loc: [facility] Ht / Wt: 185(cm)/91(kg) Pt. Loc: Echo Lab BSA: 2.15 Study Date: 11/06/2016 Pt. Type: Outpatient Tape: Referring: CAS Referring: Kit Self Reading: Huseyin Espinoza ([id number]) Flatwork Finisher: Stef Hayden Diagnosis: *ICD-10-PCS Atherosclerotic heart disease of [place] coronary artery without angina pectoris (I25.10) CPT Codes: *Echo Full (49353) *Spectral Doppler (48988) *Color Doppler (68733) *Optison (89861XN) Rhythm: Paced rhythm BP: 115/72 SUMMARY: 1. [...] MV E-wave Vmax 0.7 m/sec MV deceleration [id number] msec MV A-wave Vmax 0.7 m/sec MV [...] Normal Mid-Posterolateral Normal Mid-Inferior Hypokinetic Mid-Inferoseptal Normal [place]-Septal Normal [place]-Anterior Normal [place]-Lateral Normal [place]-Inferior Hypokinetic [place]-Tip Normal This report has been electronically signed by: Huseyin Espinoza MD 11/06/2016 12:33:49 Images reviewed and interpretation verified [facility] Cardiac Ultrasound Laboratory Kit Self MD ECHO ORDERABLES documented in this encounter Visit Diagnoses Diagnosis Coronary artery disease involving [place] coronary artery of [place] heart without angina pectoris Coronary artery disease involving [place] coronary artery of [place] heart without angina pectoris documented in this encounter Care Teams Morning Show Newscast Producer Relationship Specialty Start Date End Date Dewayne Carrington MD PCP - General 09/02/16 05/08/24 documented as of this encounter
--- OUTSIDE RECORDS SUMMARY | 2024-05-24 14:29 | XMS_ITS | Encounter Summary ---
Author Organization [facility] Address [facility] [place] [address] Care Team Providers Care Dry Primer Powder Blender Name Role Phone Dewayne Carrington MD Primary Care Provider [phone] Encounter Details Date Type Department Care Team ([facility] st Contact Info) Description 01/27/2017 3:00 PM EDT Office Visit Cardiology at [address] [address] Kit Self MD [facility] [place] [address] PAF (paroxysmal atrial fibrillation); Glucose intolerance (impaired [...] Self MD - 01/27/2017 3:00 PM EDT [facility] [place] [address] CARDIOLOGY OUTPATIENT FOLLOW-UP NOTE Marquez Hendrix [id number] PCP: Dewayne Carrington MD 01/27/2017 PRIMARY CARE PROVIDER: Dewayne Carrington MD PROBLEM LIST: Patient Active Problem List Diagnosis ??? ASCVD (arteriosclerotic cardiovascular disease) ?? Heart catheterization in [facility] in 2007 with placement of a stent in an unspecified vessel ?? Repeat heart catheterization in 2008 with placement of stents to both the LAD and circumflex ?? Followup heart catheterization in 2008 showing stable results in both vessels ?? Recurrent chest discomfort in a somewhat atypical pattern beginning fall ?? Nuclear stress test at [facility] in [place], [place] May 02, 2013 during which he developed left shoulder and arm discomfort during submaximal exercise on the treadmill and after which he was converted to a pharmacologic test; nuclear imaging showed ejection fraction of 45% with a partially reversible inferior defect ?? Cath [facility] 05/13/2013: normal left main, mild diffuse disease throughout the LAD with an 80% mid stenosis representing a restenosis lesion, mild diffuse disease in the proximal obtuse marginal branch, and mild diffuse disease throughout the right coronary artery; status post 3.0 X 12 mm JON to 80%mid-LAD lesion (in-stent restenosis) ?? Heart catheterization [facility] January 06, 2014 showing normal left main, hazy 50% mid LAD stenosis, mild diffuse disease throughout the circumflex, and moderate diffuse disease in the proximal RCA with a totally occluded distal RCA with brisk flow via bridging collaterals; fractional flow reserveon the LAD 0.85 ?? Nuclear stress test [facility] August 2016 reportedly showing a small area of inferior ischemia (final report pending) ?? Echo 11/06/16 showing inferior HK with EF 49%; no valvular disease ??? Typical atrial flutter ?? Occurred 06/08/13, lasted about 24 hours, and v rate about 80 (documented on ICD interrogation 07/18/14) ?? BANEY8Sorb score = 3 ?? Patient initially reluctant to be anticoagulated as recommended ??? Atrial pacemaker lead displacement New finding at office follow up 04/10/2014 Plan lead reposition/replacement ??? ICD (implantable cardioverter-defibrillator), dual, in situ New Atrial electrode: Guidant Dextrus Model# 4126-53 cm Serial# [id number] ?? Bipolar, steroid-tipped, active-fixation IS-1 lead ?? [...] at 10 V: No Old Ventricular electrode: [employer] [place] Model# 0292 Serial# [id number] ?? Bipolar, steroid-tipped, active-fixation DF-4 lead ?? [...] Atrial electrode: Guidant Dextrus Model# 4136 Serial# [id number] ?? Bipolar, steroid-tipped, active-fixation IS-1 lead ?? Access: Axillary vein ?? Location Removed 04/17/2014 ?? Implanted: 01/10/2014 Pulse generator: [employer] Incepta Model# E162 Serial# [id number] ?? DDDR ICD ?? Location: Subcutaneous The [...] apparently seen in the emergency department at [facility] on 2016 with feelings of profound [...] AM EST Hospital Encounter [place] [address] Arrived 08/09/2024 10:00 AM EDT Hospital Encounter [place] [address] Arrived Scheduled Orders Name Type Priority Associated Diagnoses Orde r Schedule EKG 12 Lead ECG Routine PAF (paroxysmal atrial fibrillation) Ordered: 01/27/2017 documented as of this encounter Procedures Procedure Name Priority Date/Time Associated Diagnosis Comments POCT FINGERSTICK GLUCOSE STAT 01/27/2017 Glucose intolerance (impaired glucose tolerance) documented in this encounter Results * POCT Fingerstick Glucose (01/27/2017) [facility] Signature Glucose, POC 184 60 - 199 mg/dl Kit name poct Kit Lot# [id number] 01/27/2017 Kit Self MD POINT OF CARE TEST O RDERABLES documented in this encounter Visit Diagnoses Diagnosis PAF (paroxysmal atrial fibrillation) Atrial fibrillation Glucose intolerance (impaired glucose tolerance) Impaired glucose tolerance test documented in this encounter Care Teams Dry Primer Powder Blender Relationship Specialty Start Date End Date Dewayne Carrington MD PCP - General 09/02/16 05/08/24 documented as of this encounter
--- OUTSIDE RECORDS SUMMARY | 2024-05-24 14:29 | XMS_ITS | Encounter Summary ---
Author Organization [facility] Address [facility] [place] [address] Care Team Providers Care Beauty Operator Apprentice Name Role Phone Dewayne Carrington MD Primary Care Provider [phone] Encounter Details Date Type Department Care Team (Latest Contact Info) Description 12/31/2017 12:05 AM EDT - 12/31/2017 11:59 PM EDT Hospital Encounter Radiology Library at [facility] [place] [address] Honorio Vasquez MD [facility] [place] [address] Discharge Disposition: Home Social History Tobacco Use [...] Sig Dispensed Refills Start Date End Date rivaroxaban (XARELTO) 20 mg Tablet Take 1 [...] needed. Reported on 09/30/2016 aspirin 81 mg Tablet, Delayed Release (E.C.) Take 81 mg by mouth daily. 05/10/2024 glipiZIDE (GLUCOTROL) 5 mg Tablet Take 5 mg by mouth daily. 03/18/2022 MAGNESIUM CARBONATE ORAL Take 400 mg by mouth 3 times daily. 05/10/2024 meTOPROLOL succinate (TOPROL-XL) 25 mg Tablet Sustained Release 24 hr Take 125 mg by mouth daily. PT reports taking 5 a day 09/01/2018 liraglutide (VICTOZA) 0.6 mg/0.1 mL (18 mg/3 [...] AM EST Hospital Encounter [place] [address] Arrived 08/09/2024 10:00 AM EDT Hospital Encounter [place] [address] Arrived documented as of this encounter Procedures Procedure Name Priority Date/Time Associated Diagnosis Comments FILM LIBRARY STORAGE ONLY CT UPPER EXTREMITY Routine 12/31/2017 12:05 AM EDT documented in this encounter Results * Film Library- Storage Only CT Upper Extremity (12/31/2017 12:05 AM EDT) Narrative FELIPE - 01/07/2018 5:58 PM EDT This exam is for storage only and is auto-finalizing. Honorio Vasquez MD IMG FILM LIBRARY ORD ERABLES [place] documented in this encounter Visit Diagnoses Not on filedocumented in this encounter Care Teams Beauty Operator Apprentice Relationship Specialty Start Date End Date Dewayne Carrington MD PCP - General 09/02/16 05/08/24 documented as of this encounter
--- OUTSIDE RECORDS SUMMARY | 2024-05-24 14:29 | XMS_ITS | Encounter Summary ---
Author Organization [facility] Address [facility] [place] [address] Care Team Providers Care Photo Mask Pattern Generator Name Role Phone Dewayne Carrington MD Primary Care Provider [phone] Reason for Visit * Reason Comments Right Wrist Pain NXR, RIGHT WRIST GIANLUCA N - ?TFCC INJURY, [facility] * Consultation (Routine) - Closed Specialty Diagnoses / Procedures Referred By Rosa t Referred To Contact Orthopaedics Diagnoses pain in right wrist Homero Villegas MD [address] [place] [address] Scarlett Vasquez MD [facility] [place] [address] Referral ID Status Reason Start Date Expiration Date Visits Re quested Visits Authorized [id number] Closed 01/08/2018 01/08/2019 1 1 Encounter Details Date Type Department Care Team (Late st Contact Info) Description 02/17/2018 2:45 PM EDT Office [place] [address] Scarlett Vasquez MD [facility] [place] [address] Pain in right wrist Social History Tobacco [...] illness: Marquez Hendrix is a 67 y.o. pbkkr-ysmf-uoylxfnn male with history of Afib on Xarelto, [...] 12/17/2011 Performed by Kyra Vyas MD at [facility] ??? PRO UPPER GI ENDOSCOPY, BIOPSY 12/17/2011 EGD WITH BIOPSY performed by KYRA VYAS at [facility] Medications: ??? aspirin 81 mg [...] other significant pathology noted. Assessment/Plan: 67 y.o. ruuhp-tsby-ftjqrcsx male referred by Dr. Villegas for evaluation [...] He had his pacemaker implanted here at [facility], however, making his records readily available. In [...] AM EST Hospital Encounter [place] [address] Arrived 08/09/2024 10:00 AM EDT Hospital Encounter [place] [address] Arrived documented as of this encounter Visit [...] mg documented in this encounter Care Teams Photo Mask Pattern Generator Relationship Specialty Start Date End Date Dewayne Carrington MD PCP - General 09/02/16 05/08/24 documented as of this encounter
--- OUTSIDE RECORDS SUMMARY | 2024-05-24 14:29 | XMS_ITS | Encounter Summary ---
Author Organization [facility] Address [facility] [place] [address] Care Team Providers Care Assistant Sales Center Manager Name Role Phone Dewayne Carrington MD Primary Care Provider [phone] Encounter Details Date Type Department Care Team (Latest Contact Info) Description 12/31/2017 - 12/31/2017 12:04 AM EDT Hospital Encounter Radiology Library at [facility] [place] [phone] Honorio Vasquez MD [facility] [place] [address] Discharge Disposition: Home Social History Tobacco Use [...] EST Hospital Encounter Non-Invasive [place] [address] Arrived 08/09/2024 10:00 AM EDT Hospital Encounter Non-Invasive [place] [address] Arrived documented as of this encounter Procedures Procedure Name Priority Date/Time Associated Diagnosis Comments FILM LIBRARY STORAGE ONLY DX UPPER EXTREMITY Routine 12/31/2017 12:00 AM EDT documented in this encounter Results * Film Library- Storage Only DX Upper Extremity (12/31/2017 12:00 AM EDT) Narrative [facility] - 01/07/2018 5:52 PM EDT This exam is for storage only and is auto-finalizing. Honorio Vasquez MD IMG FILM LIBRARY ORD ERABLES Performing Organization Address City/State/[facility] Co de Phone Number [place], [place] documented in this encounter Visit Diagnoses Not on filedocumented in this encounter Care Teams Assistant Sales Center Manager Relationship Specialty Start Date End Date Dewayne Carrington MD PCP - General 09/02/16 05/08/24 documented as of this encounter
--- OUTSIDE RECORDS SUMMARY | 2024-05-24 14:29 | XMS_ITS | Encounter Summary ---
Author Organization [facility] Address [facility] [place] [address] Care Team Providers Care Specialist Managers Name Role Phone Dewayne Carrington MD Primary Care Provider [phone] Encounter Details Date Type Department Care Team (Latest Contact Info) Description 06/14/2017 - 06/14/2017 11:59 PM EST Hospital Encounter Radiology Library at [facility] [place] [phone] Honorio Vasquez MD [facility] [place] [address] Discharge Disposition: Home Social History Tobacco Use [...] AM EST Hospital Encounter Non[place] [address] Arrived 08/09/2024 10:00 AM EDT Hospital Encounter Non[place] [address] Arrived documented as of this encounter Procedures Procedure Name Priority Date/Time Associated Diagnosis Comments FILM LIBRARY STORAGE ONLY DX UPPER EXTREMITY Routine 06/14/2017 12:00 AM EST documented in this encounter Results * Film Library- Storage Only DX Upper Extremity (06/14/2017 12:00 AM EST) Narrative [facility] - 01/07/2018 5:50 PM EDT This exam is for storage only and is auto-finalizing. Honorio Vasquez MD IMG FILM LIBRARY ORD ERABLES Performing Organization Address City/State/[facility] Co de Phone Number [place], [place] documented in this encounter Visit Diagnoses Not on filedocumented in this encounter Care Teams Specialist Managers Relationship Specialty Start Date End Date Dewayne Carrington MD PCP - General 09/02/16 05/08/24 documented as of this encounter
--- OUTSIDE RECORDS SUMMARY | 2024-05-24 14:29 | XMS_ITS | Encounter Summary ---
Author Organization [facility] Address [facility] [place] [address] Care Team Providers Care Acid Polymerization Operator Name Role Phone Dewayne Carrington MD Primary Care Provider [phone] Encounter Details Date Type Department Care Team (Latest Contact Info) Description 09/30/2016 2:20 PM EDT Office Visit Cardiology at [address] [address] Kit Self MD [facility] [place] [address] ASCVD (arteriosclerotic cardiovascular disease) Social History Tobacco [...] his stroke risk with his fairly high [id number] score. We once again reviewed recommendations for [...] is giving this thought Kit Self MD, [facility] * Huy Butler MD - 09/30/2016 2:20 [...] in discussion with Dr. Clair Butler MD shake maker Pager [phone]. documented in this encounter Plan of Treatment Upcoming Encounters Date Type Department Care Team (Late st Contact Info) Description 06/15/2024 10:00 AM EST Hospital Encounter Non-Invasive [place] [address] Arrived 08/09/2024 10:00 AM EDT Hospital Encounter Non-Invasive [place] [address] Arrived documented as of this encounter Visit Diagnoses Diagnosis ASCVD (arteriosclerotic cardiovascular disease) Unspecified cardiovascular disease documented in this encounter Care Teams Acid Polymerization Operator Relationship Specialty Start Date End Date Dewayne Carrington MD PCP - General 09/02/16 05/08/24 documented as of this encounter
--- OUTSIDE RECORDS SUMMARY | 2024-05-24 14:29 | XMS_ITS | Encounter Summary ---
Author Organization [facility] Address [facility] [place] [address] Care Team Providers Care Manager Steel Name Role Phone Dewayne Carrington MD Primary Care Provider [phone] Encounter Details Date Type Department Care Team (Latest Contact Info) Description 07/08/2017 - 07/08/2017 11:59 PM EDT Hospital Encounter Radiology Library at [facility] [place] [phone] Honorio Vasquez MD [facility] [place] [address] Discharge Disposition: Home Social History Tobacco Use [...] AM EST Hospital Encounter Non-[place]vasive [place] [address] Arrived 08/09/2024 10:00 AM EDT Hospital Encounter Non-[place] [address] Arrived documented as of this encounter Procedures Procedure Name Priority Date/Time Associated Diagnosis Comments FILM LIBRARY STORAGE ONLY DX WRIST Routine 07/08/2017 12:00 AM EDT documented in this encounter Results * Film Library- Storage Only DX Wrist (07/08/2017 12:00 AM EDT) Narrative [facility] - 01/07/2018 5:51 PM EDT This exam is for storage only and is auto-finalizing. Honorio Vasquez MD IMG FILM LIBRARY ORD ERABLES [place], [place] documented in this encounter Visit Diagnoses Not on filedocumented in this encounter Care Teams Manager Steel Relationship Specialty Start Date End Date Dewayne Carrington MD PCP - General 09/02/16 05/08/24 documented as of this encounter
--- OUTSIDE RECORDS SUMMARY | 2024-05-24 14:29 | XMS_ITS | Encounter Summary ---
[place] [address] Care Team Providers Care Hospice Consultant Name Role Phone Dewayne Carrington MD Primary Care Provider [phone] Reason for Visit * Reason Onset Date Comments Medication Problem 03/10/2017 Encounter Details Date Type Department Care Team (Late st Contact Info) Description 03/10/2017 Refill Cardiology at [address] [phone] Rosanna Morrow cinder block mason Problem Social History Tobacco Use Types Packs/Day [...] AM EST Hospital Encounter [place] [address] Arrived 08/09/2024 10:00 AM EDT Hospital Encounter [place] [address] Arrived documented as of this encounter Visit Diagnoses Not on filedocumented in this encounter Care Teams Hospice Consultant Relationship Specialty Start Date End Date Dewayne Carrington MD PCP - General 09/02/16 05/08/24 documented as of this encounter
--- OUTSIDE RECORDS SUMMARY | 2024-05-24 14:29 | XMS_ITS | Encounter Summary ---
Author Organization [facility] [address] Care Team Providers Care Pipe Blanks Cut Off Saw Operator Name Role Phone Dewayne Carrington MD Primary Care Provider [phone] Encounter Details Date Type Department Care Team (Late st Contact Info) Description 01/19/2017 Telephone Cardiology at [address] [phone] Gisselle Sutherland RN Social History Tobacco Use [...] EST Hospital Encounter Non-Invasive [place] [address] Arrived 08/09/2024 10:00 AM EDT Hospital Encounter Non-Invasive [place] [address] Arrived documented as of this encounter Visit Diagnoses Not on filedocumented in this encounter Care Teams Pipe Blanks Cut Off Saw Operator Relationship Specialty Start Date End Date Dewayne Carrington MD PCP - General 09/02/16 05/08/24 documented as of this encounter
--- OUTSIDE RECORDS SUMMARY | 2024-05-24 14:29 | XMS_ITS | Encounter Summary ---
Author Organization [facility] [place] [address] Care Team Providers Care Site Identification Specialist Name Role Phone Dewayne Carrington MD Primary Care Provider [phone] Encounter Details Date Type Department Care Team ([facility] st Contact Info) Description 09/30/2016 3:00 PM EDT Office Visit Cardiology at [address] [phone] Chante Robertson RN Sustained VT (ventricular tachycardia) [...] duration. Patient remains resistant to begin anticoagulation. Garment Sewing Machine Operator: Kit Self MD PCP: Dewayne Carrington MD Device Info: New Atrial electrode: Guidant Dextrus Model# 4126-53 cm Serial# [id number], implanted 04/17/2014 ?? Bipolar, steroid-tipped, active-fixation IS-1 lead ?? Access: Axillary vein ?? Location Right atrial appendage Old Ventricular electrode: [employer] [place] Model# 0292 Serial# [id number] ?? Bipolar, steroid-tipped, active-fixation DF-4 lead ?? Access: Axillary vein ?? Location: Right ventricular apex ?? Implanted: 01/10/2014 Pulse generator: PROTEGO Incepta Model# E162 Serial# [id number] ?? DDDR ICD ?? Location: Subcutaneous Tachy [...] histograms: Reasonable distribution Pacing percentages: AP 15%; QUESTIONED DOCUMENTS EXAMINER <1% Mode switch episodes: A burden of [...] AM EST Hospital Encounter Non[place] [address] Arrived 08/09/2024 10:00 AM EDT Hospital Encounter Non[place] [address] Arrived documented as of this encounter Visit Diagnoses Diagnosis Sustained VT (ventricular tachycardia) Paroxysmal ventricular tachycardia documented in this encounter Care Teams Site Identification Specialist Relationship Specialty Start Date End Date Dewayne Carrington MD PCP - General 09/02/16 05/08/24 documented as of this encounter
--- OUTSIDE RECORDS SUMMARY | 2024-05-24 14:29 | XMS_ITS | Encounter Summary ---
Author Organization [facility] Address [facility] [place] [address] Care Team Providers Care National Stormwater Leader Name Role Phone Dewayne Carrington MD Primary Care Provider [phone] Encounter Details Date Type Department Care Team (Latest Contact Info) Description 03/03/2017 2:40 PM EST Office Visit Cardiology at [address] [address] Kit Self MD [facility] [place] [address] PAF (paroxysmal atrial fibrillation); ASCVD (arteriosclerotic cardiovascular [...] Self MD - 03/03/2017 2:40 PM EST [facility] [place] [address] CARDIOLOGY OUTPATIENT FOLLOW-UP NOTE Marquez Hendrix [id number] PCP: Dewayne Carrington MD 03/03/2017 PRIMARY CARE PROVIDER: Dewayne Carrington MD PROBLEM LIST: Patient Active Problem List Diagnosis ??? ASCVD (arteriosclerotic cardiovascular disease) ?? Heart catheterization in [facility] [...] [facility] in [place], [place] May 02, 2013 during which he developed left shoulder and arm discomfort during submaximal exercise on the treadmill and after which he was converted to a pharmacologic test; nuclear imaging showed ejection fraction of 45% with a partially reversible inferior defect ?? Cath [facility] 05/13/2013: normal left main, mild diffuse disease throughout the LAD with an 80% mid stenosis representing a restenosis lesion, mild diffuse disease in the proximal obtuse marginal branch, and mild diffuse disease throughout the right coronary artery; status post 3.0 X 12 mm JON to 80%mid-LAD lesion (in-stent restenosis) ?? Heart catheterization [facility] January 06, 2014 showing normal left main, hazy 50% mid LAD stenosis, mild diffuse disease throughout the circumflex, and moderate diffuse disease in the proximal RCA with a totally occluded distal RCA with brisk flow via bridging collaterals; fractional flow reserveon the LAD 0.85 ?? Nuclear stress test [facility] August 2016 reportedly showing a small area of inferior ischemia (final report pending) ?? Echo 11/06/16 showing inferior HK with EF 49%; no valvular disease ??? Typical atrial flutter ?? Occurred 06/08/13, lasted about 24 hours, and v rate about 80 (documented on ICD interrogation 07/18/14) ?? [id number] score = 3 ?? Patient initially reluctant to be anticoagulated as recommended ??? Atrial pacemaker lead displacement New finding at office follow up 04/10/2014 Plan lead reposition/replacement ??? ICD (implantable cardioverter-defibrillator), dual, in situ New Atrial electrode: Guidant Dextrus Model# 4126-53 cm Serial# [id number] ?? Bipolar, steroid-tipped, active-fixation IS-1 lead ?? [...] at 10 V: No Old Ventricular electrode: [employer]ULSE [employer] Model# 0292 Serial# [id number] ?? Bipolar, steroid-tipped, active-fixation DF-4 lead ?? [...] Atrial electrode: Guidant Dextrus Model# 4136 Serial# [id number] ?? Bipolar, steroid-tipped, active-fixation IS-1 lead ?? Access: Axillary vein ?? Location Removed 04/17/2014 ?? Implanted: 01/10/2014 Pulse generator: [employer] Incepta Model# E162 Serial# [id number] ?? DDDR ICD ?? Location: Subcutaneous The [...] AM EST Hospital Encounter Non-[place] [address] Arrived 08/09/2024 10:00 AM EDT Hospital Encounter Non-[place]vasive [place] [address] Arrived documented as of this encounter Visit Diagnoses Diagnosis PAF (paroxysmal atrial fibrillation) Atrial fibrillation ASCVD (arteriosclerotic cardiovascular disease) Unspecified cardiovascular disease documented in this encounter Care Teams National Stormwater Leader Relationship Specialty Start Date End Date Dewayne Carrington MD PCP - General 09/02/16 05/08/24 documented as of this encounter
--- OUTSIDE RECORDS SUMMARY | 2024-05-24 14:29 | XMS_ITS | Encounter Summary ---
Author Organization [facility] [place] [address] Care Team Providers Care Sales Representative Metals Name Role Phone Dewayne Carrington MD Primary Care Provider Reason for Visit * Reason Onset Date Comments Medication Refill 03/03/2017 Encounter Details Date Type Department Care Team (Late st Contact Info) Description 03/03/2017 Refill Cardiology at [address] [address] Kit Self MD [facility] [place] [address] Medication Refill Social History Tobacco Use Types [...] EST Hospital Encounter Non-[place] [address] Arrived 08/09/2024 10:00 AM EDT Hospital Encounter Non-[place]vasive [place] [address] Arrived documented as of this encounter Visit Diagnoses Not on filedocumented in this encounter Care Teams Sales Representative Metals Relationship Specialty Start Date End Date Dewayne Carrington MD PCP - General 09/02/16 05/08/24 documented as of this encounter
--- OUTSIDE RECORDS SUMMARY | 2024-05-24 14:29 | XMS_ITS | Encounter Summary ---
Author [facility] [place] [address] Care Team Providers Care Audit Director Name Role Phone Dewayne Carrington MD Primary Care Provider [phone] Encounter Details Date Type Department Care Team (Late st Contact Info) Description 07/07/2017 Orders Only Cardiology at [address] [address] Social History Tobacco Use Types Packs/Day Years [...] AM EST Hospital Encounter [place] [address] Arrived 08/09/2024 10:00 AM EDT Hospital Encounter [place] [address] Arrived documented as of this encounter Procedures [...] Episode Identifier V-346 IDCO Episode Date Time [id number] IDCO Episode Type Category VT IDCO Episode Vendor Type Category NSVT IDCO Episode Type Induced Flag NO IDCO Episode Detection Interval Ventricular 373 ms IDCO Episode Duration 8 s IDCO Episode Detection And Therapy Details NonSustV IDCO Episode Identifier V-345 IDCO Episode Date Time [id number] IDCO Episode Type Category VT IDCO Episode Vendor Type Category NSVT IDCO Episode Type Induced Flag NO IDCO Episode Detection Interval Ventricular 359 ms IDCO Episode Duration 7 s IDCO Episode Detection And Therapy Details NonSustV IDCO Episode Identifier ATR-163 IDCO Episode Date Time [id number] IDCO Episode Type Category AT/AF IDCO Episode Vendor Type Category ATR IDCO Episode Detection Interval Atrial 252 ms IDCO Episode Duration 73 s IDCO Episode Detection And Therapy Details ATR IDCO Episode Identifier ATR-162 IDCO Episode Date Time [id number] IDCO Episode Type Category AT/AF IDCO Episode Vendor Type Category ATR IDCO Episode Detection Interval Atrial 258 ms IDCO Episode Duration 91 s IDCO Episode Detection And Therapy Details ATR IDCO Episode Identifier V-344 IDCO Episode Date Time [id number] IDCO Episode Type Category VT IDCO Episode Vendor Type Category NSVT IDCO Episode Type Induced Flag NO IDCO Episode Detection Interval Ventricular 368 ms IDCO Episode Duration 6 s IDCO Episode Detection And Therapy Details NonSustV IDCO Episode Identifier ATR-161 IDCO Episode Date Time [id number] IDCO Episode Type Category AT/AF IDCO Episode Vendor Type Category ATR IDCO Episode Detection Interval Atrial 256 ms IDCO Episode Duration 2,512 s IDCO Episode Detection And Therapy Details ATR IDCO Episode Identifier ATR-160 IDCO Episode Date Time [id number] IDCO Episode Type Category AT/AF IDCO Episode Vendor Type Category ATR IDCO Episode Detection Interval Atrial 233 ms IDCO Episode Duration 317 s IDCO Episode Detection And Therapy Details ATR IDCO Episode Identifier V-343 IDCO Episode Date Time [id number] IDCO Episode Type Category VT IDCO Episode Vendor Type Category NSVT IDCO Episode Type Induced Flag NO IDCO Episode Detection Interval Ventricular 357 ms IDCO Episode Duration 8 s IDCO Episode Detection And Therapy Details NonSustV IDCO Episode Identifier V-342 IDCO Episode Date Time [id number] IDCO Episode Type Category VT IDCO Episode Vendor Type Category NSVT IDCO Episode Type Induced Flag NO IDCO Episode Detection Interval Ventricular 364 ms IDCO Episode Duration 9 s IDCO Episode Detection And Therapy Details NonSustV IDCO Episode Identifier V-341 IDCO Episode Date Time [id number] IDCO Episode Type Category VT IDCO Episode Vendor Type Category NSVT IDCO Episode Type Induced Flag NO IDCO Episode Detection Interval Ventricular 373 ms IDCO Episode Duration 8 s IDCO Episode Detection And Therapy Details NonSustV IDCO Episode Identifier V-340 IDCO Episode Date Time [id number] IDCO Episode Type Category VT IDCO Episode Vendor Type Category NSVT IDCO Episode Type Induced Flag NO IDCO Episode Detection Interval Ventricular 359 ms IDCO Episode Duration 7 s IDCO Episode Detection And Therapy Details NonSustV IDCO Episode Identifier V-339 IDCO Episode Date Time [id number] IDCO Episode Type Category VT IDCO Episode Vendor Type Category NSVT IDCO Episode Type Induced Flag NO IDCO Episode Detection Interval Ventricular 368 ms IDCO Episode Duration 8 s IDCO Episode Detection And Therapy Details NonSustV IDCO Episode Identifier V-338 IDCO Episode Date Time [id number] IDCO Episode Type Category VT IDCO Episode [...] Episode Identifier ATR-158 IDCO Episode Date Time IDCO Episode Type [...] E162 IDCO Implantable Pulse Generator Serial Number [id number] IDCO Implantable Pulse Generator Slipper Maker [place] [employer] IDCO Implantable Pulse Generator Implant Date 20140110 IDCO Implantable Lead Model 4136 IDCO Implantable Lead Serial Number [id number] IDCO Implantable Lead Slipper Maker Guidant IDCO Implantable Lead Implant Date 20130421 IDCO Implantable Lead Polarity Type Bipolar Lead IDCO Implantable Lead Location Right Atrium IDCO Implantable Lead Model 0292 IDCO Implantable Lead Serial Number [id number] IDCO Implantable Lead Slipper Maker [place] [employer] IDCO Implantable Lead Implant Date IDCO [...] IDCO Lead Channel Pacing Threshold Measurement Method Data Warehouse Manager Manual IDCO Lead Channel Pacing Threshold [...] IDCO Lead Channel Pacing Threshold Measurement Method Data Warehouse Manager Manual IDCO Lead Channel Pacing Threshold [...] on filedocumented in this encounter Care Teams Audit Director Relationship Specialty Start Date End Date Dewayne Carrington MD PCP - General 09/02/16 05/08/24 documented as of this encounter
--- OUTSIDE RECORDS SUMMARY | 2024-05-24 14:29 | XMS_ITS | Encounter Summary ---
Author Organization [facility] Address [facility] [place] [address] Care Team Providers Care Clay Shop Supervisor Name Role Phone Dewyane Carrington MD Primary Care Provider [phone] Encounter Details Date Type Department Care Team (Late st Contact Info) Description 09/03/2016 Telephone Cardiology at [address] [phone] Gisselle Sutherland RN Social History Tobacco Use [...] that he had been seen in the [facility] ED last night. Had a stress test on Friday 09/01. After the test he was upset about stuff that was happening at the apartment. Didn't sleep Thursday night. Yesterday he was very active, didn't feel well, jacked up BP went up to 163/110. Sounds and lights made him feel worse, pressure in his head. [place] like his ICD might fire. In the ED he reports everything checked out OK. Had labs, EKG, brain scan. They did not have a cad cam programmer to check ICD. He has sent a remote download to us. Does not have result of stress test yet. Feels better today. BP 135/82 HR 61. Noon 126/75 HR 61. Reports being faxed. documented in this encounter Plan of Treatment Upcoming Encounters Date Type Department Care Team (Late st Contact Info) Description 06/15/2024 10:00 AM EST Hospital Encounter Non-Invasive [place] [address] Arrived 08/09/2024 10:00 AM EDT Hospital Encounter Non-Invasive [place] [address] Arrived documented as of this encounter Visit Diagnoses Not on filedocumented in this encounter Care Teams Clay Shop Supervisor Relationship Specialty Start Date End Date Dewayne Carrington MD PCP - General 09/02/16 05/08/24 documented as of this encounter
--- OUTSIDE RECORDS SUMMARY | 2024-05-24 14:29 | XMS_ITS | Encounter Summary ---
Author Organization [facility] [place] [address] Care Team Providers Care Hand Model Name Role Phone Dewayne Carrington MD Primary Care Provider [phone] Encounter Details Date Type Department Care Team (Late st Contact Info) Description 10/07/2017 Telephone Cardiology at [address] [phone] Ruben Davenport Social History Tobacco Use Types [...] He stated he is being [facility]now at [facility] documented in this encounter Plan of Treatment Upcoming Encounters Date Type Department Care Team (Late st Contact Info) Description 06/15/2024 10:00 AM EST Hospital Encounter [place] [phone] Arrived 08/09/2024 10:00 AM EDT Hospital Encounter [place] [address] Arrived documented as of this encounter Visit Diagnoses Not on filedocumented in this encounter Care Teams Hand Model Relationship Specialty Start Date End Date Dewayne Carrington MD PCP - General 09/02/16 05/08/24 documented as of this encounter
--- OUTSIDE RECORDS SUMMARY | 2024-05-24 14:29 | XMS_ITS | Encounter Summary ---
Author [facility] [place] [address] Care Team Providers Care Media Services Coordinator Name Role Phone Dewayne Carrington MD Primary Care Provider [phone] Encounter Details Date Type Department Care Team (Late st Contact Info) Description 01/12/2017 External Results Cardiology at [address] [phone] Dewayne Carrington MD [address] [place] [phone] Social History Tobacco Use Types Packs/Day Years [...] AM EST Hospital Encounter Non[place] [phone] Arrived 08/09/2024 10:00 AM EDT Hospital Encounter [place] [address] Arrived documented as of this encounter Procedures Procedure Name Priority Date/Time Associated Diagnosis Comments EP DEVICE SCAN Routine 01/06/2017 documented in this encounter Results * Scan Doc: EP Device (01/06/2017) Anatomical Region Laterality Modality Other Dewayne Carrington MD MEDIA MGR SCAN EXT O RDR/RSLT documented in this encounter Visit Diagnoses Not on filedocumented in this encounter Care Teams Media Services Coordinator Relationship Specialty Start Date End Date Dewayne Carrington MD PCP - General 09/02/16 05/08/24 documented as of this encounter
--- OUTSIDE RECORDS SUMMARY | 2024-05-24 14:29 | XMS_ITS | Encounter Summary ---
Author Organization [facility] [place] [address] Care Team Providers Care Mushroom Laborer Name Role Phone Dewayne Carrington MD Primary Care Provider [phone] Encounter Details Date Type Department Care Team (Late st Contact Info) Description 02/25/2017 Orders Only Cardiology at [address] [phone] Social History Tobacco Use Types Packs/Day Years [...] AM EST Hospital Encounter Non[place] [address] Arrived 08/09/2024 10:00 AM EDT Hospital Encounter [place] [address] Arrived documented as of this encounter Procedures Procedure Name Priority Date/Time Associated Diagnosis Comments CARDIAC DEVICE CHECK - REMOTE PATIENT INITIATED Routine 02/25/2017 1:24 PM EST documented in this encounter Results * Cardiac device check - Remote Patient Initiated (02/25/2017 1:24 PM EST) Date Time Interrogation Session [id number] IDCO Type Interrogation Session Remote Patient Initiated IDCO Clinic Name Gerry Carpio [facility] IDCO Battery Date Time of Measurements [id number] IDCO Battery Status Beginning of Service IDCO Battery Remaining Longevity 102 mo IDCO Battery Remaining Percentage 100 % IDCO Capacitor Last Charge Date Time IDCO Capacitor Charge Time 10.4 s IDCO Capacitor Charge Type Reformation IDCO Capacitor Last Charge Date Time [id number] IDCO Capacitor Charge Time 3.8 s IDCO Capacitor Charge Energy 21 J IDCO Capacitor Charge Type Shock IDCO Episode Identifier [id number] IDCO Episode Date Time [id number] IDCO Episode Type Category Periodic EGM IDCO Episode Vendor Type Category APMRT IDCO Episode Detection And Therapy Details Presenting EGM IDCO Episode Identifier [id number] IDCO Episode Date Time [id number] IDCO Episode Type Category Other IDCO Episode Vendor Type Category XANDER IDCO Episode Detection Interval Ventricular 909 ms IDCO Episode Duration 56 s IDCO Episode Detection And Therapy Details Q IDCO Episode Identifier [id number] IDCO Episode Date Time [id number] IDCO Episode Type Category VT IDCO Episode Vendor Type Category NSVT IDCO Episode Type Induced Flag NO IDCO Episode Detection Interval Ventricular 349 ms IDCO Episode Duration 7 s IDCO Episode Detection And Therapy Details NonSustV IDCO Episode Identifier [id number] IDCO Episode Date Time [id number] IDCO Episode Type Category Other IDCO Episode Vendor Type Category XANDER IDCO Episode Detection Interval Ventricular 882 ms IDCO Episode Duration 55 s IDCO Episode Detection And Therapy Details Q IDCO Episode Identifier [id number] IDCO Episode Date Time [id number] IDCO Episode Type Category Other IDCO Episode Vendor Type Category XANDER IDCO Episode Detection Interval Ventricular 870 ms IDCO Episode Duration 53 s IDCO Episode Detection And Therapy Details IDCO Episode Identifier [id number] IDCO Episode Date Time IDCO Episode Type Category Other IDCO Episode Vendor Type Category XANDER IDCO Episode Detection Interval Ventricular 1,000 ms IDCO Episode Duration 58 s IDCO Episode Detection And Therapy Details IDCO Episode Identifier [id number] IDCO Episode Date Time IDCO Episode Type Category Other IDCO Episode Vendor Type Category XANDER IDCO Episode Detection Interval Ventricular 1,034 ms IDCO Episode Duration 62 s IDCO Episode Detection And Therapy Details IDCO Episode Identifier [id number] IDCO Episode Date Time [id number] IDCO Episode Type Category Other IDCO Episode Vendor Type Category XANDER IDCO Episode Detection Interval Ventricular 909 ms IDCO Episode Duration 54 s IDCO Episode Detection And Therapy Details IDCO Episode Identifier [id number] IDCO Episode Date Time [id number] IDCO Episode Type Category Other IDCO Episode Vendor Type Category XANDER IDCO Episode Detection Interval Ventricular 923 ms IDCO Episode Duration 54 s IDCO Episode Detection And Therapy Details IDCO Episode Identifier [id number] IDCO Episode Date Time [id number] IDCO Episode Type Category Other IDCO Episode Vendor Type Category XANDER IDCO Episode Detection Interval Ventricular 909 ms IDCO Episode Duration 54 s IDCO Episode Detection And Therapy Details IDCO Episode Identifier [id number] IDCO Episode Date Time [id number] IDCO Episode Type Category Other IDCO Episode Vendor Type Category XANDER IDCO Episode Detection Interval Ventricular 909 ms IDCO Episode Duration 53 s IDCO Episode Detection And Therapy Details IDCO Episode Identifier [id number] IDCO Episode Date Time IDCO Episode Type [...] E162 IDCO Implantable Pulse Generator Serial Number [id number] IDCO Implantable Pulse Generator Agent Based Modeler [place] [employer] IDCO Implantable Pulse Generator Implant Date 20140110 IDCO Implantable Lead Model 4136 IDCO Implantable Lead Serial Number [id number] IDCO Implantable Lead Agent Based Modeler Guidant IDCO Implantable Lead Implant Date 20130421 IDCO Implantable Lead Polarity Type Bipolar Lead IDCO Implantable Lead Location Right Atrium IDCO Implantable Lead Model 0292 IDCO Implantable Lead Serial Number [id number] IDCO Implantable Lead Agent Based Modeler [place] [employer] IDCO Implantable Lead Implant Date IDCO [...] IDCO Lead Channel Pacing Threshold Measurement Method Channeler Insole Manual IDCO Lead Channel Pacing Threshold Polarity [...] IDCO Lead Channel Pacing Threshold Measurement Method Channeler Insole Manual IDCO Lead Channel Pacing Threshold Polarity [...] on filedocumented in this encounter Care Teams Mushroom Laborer Relationship Specialty Start Date End Date Dewayne Carrington MD PCP - General 09/02/16 05/08/24 documented as of this encounter
--- OUTSIDE RECORDS SUMMARY | 2024-05-24 14:29 | XMS_ITS | Encounter Summary ---
Author Organization [facility] [address] Care Team Providers Care Ordnance Truck Installation Supervisor Name Role Phone Dewayne Carrington MD Primary Care Provider [phone] Encounter Details Date Type Department Care Team (Late st Contact Info) Description 01/20/2017 Telephone Cardiology at [address] [phone] Gisselle Sutherland RN Social History Tobacco Use [...] AM EST Hospital Encounter [place] [address] Arrived 08/09/2024 10:00 AM EDT Hospital Encounter [place] [address] Arrived documented as of this encounter Visit Diagnoses Not on filedocumented in this encounter Care Teams Ordnance Truck Installation Supervisor Relationship Specialty Start Date End Date Dewayne Carrington MD PCP - General 09/02/16 05/08/24 documented as of this encounter
--- OUTSIDE RECORDS SUMMARY | 2024-05-24 14:29 | XMS_ITS | Encounter Summary ---
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 Procedures Echocardiogram Transthoracic(Leb) Huy Butler MD [facility] [place] [address] [facility] [place] [address] Referral ID Status Reason Start Date Expiration Date V isits Requested Visits Authorized [id number] Closed Specialty Service Requested 10/01/2016 10/01/2017 1 1 Reason for Visit * Diagnostic Test (Routine) - Closed Specialty Diagnoses / Procedures Referred By Contac t Referred To Contact Cardiology Diagnoses 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 Procedures Echocardiogram Transthoracic(Leb) Huy Butler MD [facility] [place] [address] [facility] [place] [address] Referral ID Status Reason Start Date Expiration Date V isits Requested Visits Authorized [id number] Closed Specialty Service Requested 10/01/2016 10/01/2017 1 1 Encounter Details Date Type Department Care Team (Latest Contact Info) Description 11/06/2016 10:44 AM EDT - 11/06/2016 11:59 PM EDT Hospital Encounter Non-Invasive Cardiology Lab [facility] [place] [address] Kit Self MD [facility] [place] [address] 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 Discharge Disposition: Home [...] AM EST Hospital Encounter [place] [address] Arrived 08/09/2024 10:00 AM EDT Hospital Encounter [place] [address] Arrived documented as of this encounter Procedures Procedure Name Priority Date/Time Associated Diagnosis Comments ECHO COMPLETE W CONTRAST Routine 11/06/2016 11:56 AM EDT 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 [id number] ?Sex: ?M ? [place] [facility] [place]Ht / Wt: ??185(cm)/91(kg) Pt. Loc: ?Echo Lab ?BSA: ?2.15 Study Date: ?? 11/06/2016 ?Pt. Type: Outpatient Tape: ? Referring: CAS Referring: Kit Self Reading: Huseyin Espinoza ([id number]) Wind Turbine Engineer: tSef Hayden Diagnosis: *ICD-10-PCS Atherosclerotic heart disease of koi coronary artery without angina pectoris (I25.10) CPT Codes: *Echo Full (30290) *Spectral Doppler (80678) *Color Doppler (25995) *Optison (21670MV) Rhythm: ? Paced rhythm BP: ? 115/72 [...] E-wave Vmax ?0.7 ?m/sec ? MV deceleration hrya151.6 ?msec ? MV A-wave Vmax ?0.7 ?m/sec [...] ? Mid-Inferior ?Hypokinetic ? Mid-Inferoseptal ?Normal ? Hospers-Septal ? Normal ? Hospers-Anterior ? Normal ? Hosp[place]-Lateral ?Normal ? Hospers-Inferior ? Hypokinetic ? Hospers-Tip ?Normal ? This report has been electronically signed by: Huseyin Espinoza MD ? 11/06/2016 12:33:49 Images reviewed and interpretation verified [facility] Cardiac Ultrasound Laboratory Procedure Note Huseyin Espinoza MD - 11/06/2016 Procedure: Transthoracic Echocardiogram Patient: PAMELA ROGERS(Age): 1950(66y) Med Rec#: [id number] Sex: M [place] [facility] Ht / Wt: 185(cm)/91(kg) Pt. Loc: Echo Lab BSA: 2.15 Study Date: 11/06/2016 Pt. Type: Outpatient Tape: Referring: CAS Referring: Kit Self Reading: Huseyin Espinoza ([id number]) Wind Turbine Engineer: Stef Hayden Diagnosis: *ICD-10-PCS Atherosclerotic heart disease of koi coronary artery without angina pectoris (I25.10) CPT Codes: *Echo Full (48530) *Spectral Doppler (31711) *Color Doppler (48077) *Optison (17399BF) Rhythm: Paced rhythm BP: 115/72 SUMMARY: 1. 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
--- OUTSIDE RECORDS SUMMARY | 2024-05-24 14:29 | XMS_ITS | Encounter Summary ---
Author Organization [facility] Address [facility] [place] [address] Care Team Providers Care Production Consultant Name Role Phone Dewayne Carrington MD Primary Care Provider [phone] Encounter Details Date Type Department Care Team (Latest Contact Info) Description 11/06/2016 1:00 PM EDT Office Visit Cardiology at [address] [address] Kit Self MD [facility] [place] [address] Typical atrial flutter; ASCVD (arteriosclerotic cardiovascular disease) [...] the original note were not included. [facility] JAYA Cao [address] CARDIOLOGY OUTPATIENT FOLLOW-UP NOTE Marquez Hendrix [id number] PCP: Dewayne Carrington MD 11/06/2016 PRIMARY CARE PROVIDER: Dewayne Carrington MD PROBLEM LIST: Patient Active Problem List Diagnosis ??? ASCVD (arteriosclerotic cardiovascular disease) ?? Heart catheterization in [facility] in 2007 with placement of a stent in an unspecified vessel ?? Repeat heart catheterization in 2008 with placement of stents to both the LAD and circumflex ?? Followup heart catheterization in 2008 showing stable results in both vessels ?? Recurrent chest discomfort in a somewhat atypical pattern beginning fall ?? Nuclear stress test at [facility] in [place], [place] May 02, 2013 during which he developed left shoulder and arm discomfort during submaximal exercise on the treadmill and after which he was converted to a pharmacologic test; nuclear imaging showed ejection fraction of 45% with a partially reversible inferior defect ?? Cath [facility] 05/13/2013: normal left main, mild diffuse disease throughout the LAD with an 80% mid stenosis representing a restenosis lesion, mild diffuse disease in the proximal obtuse marginal branch, and mild diffuse disease throughout the right coronary artery; status post 3.0 X 12 mm JON to 80%mid-LAD lesion (in-stent restenosis) ?? Heart catheterization [facility] January 06, 2014 showing normal left main, hazy 50% mid LAD stenosis, mild diffuse disease throughout the circumflex, and moderate diffuse disease in the proximal RCA with a totally occluded distal RCA with brisk flow via bridging collaterals; fractional flow reserveon the LAD 0.85 ?? Nuclear stress test [facility] August 2016 reportedly showing a small area of inferior ischemia (final report pending) ?? Echo 11/06/16 showing inferior HK with EF 49%; no valvular disease ??? Typical atrial flutter ?? Occurred 06/08/13, lasted about 24 hours, and v rate about 80 (documented on ICD interrogation 07/18/14) ?? [id number] score = 3 ?? Patient initially reluctant to be anticoagulated as recommended ??? Atrial pacemaker lead displacement New finding at office follow up 04/10/2014 Plan lead reposition/replacement ??? ICD (implantable cardioverter-defibrillator), dual, in situ New Atrial electrode: Guidant Dextrus Model# 4126-53 cm Serial# [id number] ?? Bipolar, steroid-tipped, active-fixation IS-1 lead ?? [...] 10 V: No Old Ventricular electrode: [employer] Kamrar Model# 0292 Serial# [id number] ?? Bipolar, steroid-tipped, active-fixation DF-4 lead ?? [...] Atrial electrode: Guidant Dextrus Model# 4136 Serial# [id number] ?? Bipolar, steroid-tipped, active-fixation IS-1 lead ?? Access: Axillary vein ?? Location Removed 04/17/2014 ?? Implanted: 01/10/2014 Pulse generator: [employer] Incepta Model# E162 Serial# [id number] ?? DDDR ICD ?? Location: Subcutaneous The [...] of his paroxysmal atrial fibrillation and elevated [id number] score we have recommended formal anticoagulation and [...] AM EST Hospital Encounter Non-Invasive [place] [address] Arrived 08/09/2024 10:00 AM EDT Hospital Encounter Non-Invasive [place] [address] Arrived documented as of this encounter Procedures [...] (Bezet) 460 ms MUSE SYSTEM Calculated P [place] 42 degrees MUSE SYSTEM Calculated R [place] -53 degrees MUSE SYSTEM Calculated T [place] -5 degrees MUSE SYSTEM INTERPRETATION Normal sinus [...] PM EDT Kit Self MD ECG ORDERABLES [facility] documented in this encounter Visit Diagnoses Diagnosis Typical atrial flutter Atrial flutter ASCVD (arteriosclerotic cardiovascular disease) Unspecified cardiovascular disease documented in this encounter Care Teams Production Consultant Relationship Specialty Start Date End Date Dewayne Carrington MD PCP - General 09/02/16 05/08/24 documented as of this encounter
--- OUTSIDE RECORDS SUMMARY | 2024-05-24 14:29 | XMS_ITS | Encounter Summary ---
Author Organization [facility] Address [facility] [place] [address] Care Team Providers Care Emissions Technician Name Role Phone Dewayne Carrington MD Primary Care Provider [phone] Encounter Details Date Type Department Care Team (Latest Contact Info) Description 09/23/2017 - 09/23/2017 11:59 PM EDT Hospital Encounter Radiology Library at [facility] [place] [phone] Honorio Vasquez MD [facility] [place] [address] Discharge Disposition: Home Social History Tobacco Use [...] AM EST Hospital Encounter Non-[place] [address] Arrived 08/09/2024 10:00 AM EDT Hospital Encounter Non-[place] [address] Arrived documented as of this encounter Procedures Procedure Name Priority Date/Time Associated Diagnosis Comments FILM LIBRARY STORAGE ONLY DX WRIST Routine 09/23/2017 12:00 AM EDT documented in this encounter Results * Film Library- Storage Only DX Wrist (09/23/2017 12:00 AM EDT) Narrative [facility] - 01/07/2018 5:51 PM EDT This exam is for storage only and is auto-finalizing. Honorio Vasquez MD IMG FILM LIBRARY ORD ERABLES Performing Organization Address City/State/[facility] Co de Phone Number [place], [place] documented in this encounter Visit Diagnoses Not on filedocumented in this encounter Care Teams Emissions Technician Relationship Specialty Start Date End Date Dewayne Carrington MD PCP - General 09/02/16 05/08/24 documented as of this encounter
--- OUTSIDE RECORDS SUMMARY | 2024-05-24 14:29 | XMS_ITS | Encounter Summary ---
[place] [address] Care Team Providers Care Continuous Improvement Coordinator Name Role Phone Dewayne Carrington MD Primary Care Provider [phone] Encounter Details Date Type Department Care Team (Late Contact Info) Description 12/19/2016 Telephone Cardiology at [address] [address] Suni Cortes, RN Social History [...] AM EST Hospital Encounter [place] [address] Arrived 08/09/2024 10:00 AM EDT Hospital Encounter [place] [address] Arrived documented as of this encounter Visit Diagnoses Not on filedocumented in this encounter Care Teams Continuous Improvement Coordinator Relationship Specialty Start Date End Date Dewayne Carrington MD PCP - General 09/02/16 05/08/24 documented as of this encounter
--- OUTSIDE RECORDS SUMMARY | 2024-05-24 14:30 | XMS_ITS | Encounter Summary ---
Author Organization [facility] [place] [address] Care Team Providers Care Wall Taper Helper Name Role Phone Ángel Bingham MD Primary Care Provider [phone] Reason for Visit * Reason Comments Medication Refill Encounter Details Date Type Department Care Team (Late st Contact Info) Description 04/12/2016 Refill Cardiology at [address] [phone] Kit Self MD [facility] [address] Medication Refill Social History Tobacco Use Types [...] AM EST Hospital Encounter [place] [address] Arrived 08/09/2024 10:00 AM EDT Hospital Encounter [place] [address]-1000 Arrived documented as of this encounter Visit Diagnoses Not on filedocumented in this encounter Care Teams Wall Taper Helper Relationship Specialty Start Date End Date Ángel Bingham MD [facility] [address] [facility] [place] [address] PCP - General 01/31/14 09/01/16 documented as of this encounter
--- OUTSIDE RECORDS SUMMARY | 2024-05-24 14:30 | XMS_ITS | Encounter Summary ---
Author Organization [facility] [place] [address] Care Team Providers Care Pc Technician Name Role Phone Ángel Bingham MD Primary Care Provider [phone] Encounter Details Date Type Department Care Team (Late st Contact Info) Description 04/23/2016 External Results Cardiology at [address] [phone] Ángel Bingham MD [facility] [address] [place] [address] Social History Tobacco Use Types Packs/Day Years [...] AM EST Hospital Encounter Non-In[place] [phone] Arrived 08/09/2024 10:00 AM EDT Hospital Encounter Non-Invasive [place] [phone] Arrived documented as of this encounter Procedures Procedure Name Priority Date/Time Associated Diagnosis Comments EP DEVICE SCAN Routine 04/15/2016 documented in this encounter Results * Scan Doc: EP Device (04/15/2016) Anatomical Region Laterality Modality Other Ángel Bingham MD MEDIA MGR SCAN EXT O RDR/RSLT documented in this encounter Visit Diagnoses Not on filedocumented in this encounter Care Teams Pc Technician Relationship Specialty Start Date End Date Ángel Bingham MD [facility] [address] [place] [address] PCP - General 01/31/14 09/01/16 documented as of this encounter
--- OUTSIDE RECORDS SUMMARY | 2024-05-24 14:30 | XMS_ITS | Encounter Summary ---
Author Organization [facility] [place] [address] Care Team Providers Care In Process Inspector Name Role Phone Ángel Bingham MD Primary Care Provider [phone] Reason for Visit * Reason Comments Medication Refill Encounter Details Date Type Department Care Team (Late st Contact Info) Description 03/03/2015 Refill Cardiology at [address] [phone] Kit Self MD [facility] [address] Medication Refill Social History Tobacco Use Types [...] AM EST Hospital Encounter Non-Invasive [place] [phone] Arrived 08/09/2024 10:00 AM EDT Hospital Encounter Non-Invasive [place] [phone] Arrived documented as of this encounter Visit Diagnoses Not on filedocumented in this encounter Care Teams In Process Inspector Relationship Specialty Start Date End Date Ángel Bingham MD [facility] [address] [place] [address] PCP - General 01/31/14 09/01/16 documented as of this encounter
--- OUTSIDE RECORDS SUMMARY | 2024-05-24 14:30 | XMS_ITS | Encounter Summary ---
[facility] [place] [address] Care Team Providers Care Client Services Coordinator Name Role Phone Ángel Bingham MD Primary Care Provider [phone] Encounter Details Date Type Department Care Team (Late st Contact Info) Description 01/16/2015 Orders Only Cardiology at [address] [phone] Social History Tobacco Use Types Packs/Day Years [...] EST Hospital Encounter Non-Invasive [place] [address] Arrived 08/09/2024 10:00 AM EDT Hospital Encounter Non-[place]vasive [place] [address] Arrived documented as of this encounter Procedures Procedure Name Priority Date/Time Associated Diagnosis Comments CARDIAC DEVICE CHECK - REMOTE SCHEDULED Routine 01/16/2015 12:42 AM EDT documented in this encounter Results * Cardiac device check - Remote Scheduled (01/16/2015 12:42 AM EDT) Date Time Interrogation Session [id number] IDCO Type Interrogation Session Remote Scheduled IDCO Clinic Name [facility] IDCO Battery Date Time of Measurements [id number] IDCO Battery Status Beginning of Service IDCO Battery Remaining Longevity 126 mo IDCO Battery Remaining Percentage 100 % IDCO Capacitor Last Charge Date Time IDCO Capacitor Charge Time 10.0 s IDCO Capacitor Charge Type Reformation IDCO Episode Identifier APM-11 IDCO Episode Date Time [id number] IDCO Episode Type Category Periodic EGM IDCO Episode Vendor Type Category APMRT IDCO Episode Detection And Therapy Details Presenting EGM IDCO Episode Identifier [id number] IDCO Episode Date Time [id number] IDCO Episode Type Category Other IDCO Episode [...] E162 IDCO Implantable Pulse Generator Serial Number [id number] IDCO Implantable Pulse Generator Hand Polisher [employer] IDCO Implantable Pulse Generator Implant Date 20140110 IDCO Implantable Lead Model 4136 IDCO Implantable Lead Serial Number [id number] IDCO Implantable Lead Hand Polisher Guidant IDCO Implantable Lead Implant Date 20130421 IDCO Implantable Lead Polarity Type Bipolar Lead IDCO Implantable Lead Location Right Atrium IDCO Implantable Lead Model 0292 IDCO Implantable Lead Serial Number [id number] IDCO Implantable Lead Hand Polisher [employer] IDCO Implantable Lead Implant Date IDCO [...] IDCO Lead Channel Pacing Threshold Measurement Method Engine Maintenance Mechanic Manual IDCO Lead Channel Pacing Threshold [...] IDCO Lead Channel Pacing Threshold Measurement Method Engine Maintenance Mechanic Manual IDCO Lead Channel Pacing Threshold [...] [id number] IDCO Albaro Statistic Date Time End [id number] IDCO Albaro Statistic RA Percent Paced 18 % IDCO Albaro Statistic RV Percent Paced 0 % IDCO Anatomical Region Laterality Modality Other 01/16/2015 12:4 2 AM EDT Physician Cardiology IMPLANTABLE CARD IAC DEVICE documented in this encounter Visit Diagnoses Not on filedocumented in this encounter Care Teams Client Services Coordinator Relationship Specialty Start Date End Date Ángel Bingham MD [facility] [address] [place] [address] PCP - General 01/31/14 09/01/16 documented as of this encounter
--- OUTSIDE RECORDS SUMMARY | 2024-05-24 14:30 | XMS_ITS | Encounter Summary ---
Author Organization [facility] [place] [address] Care Team Providers Care Furnace Installer Helper Name Role Phone Dewayne Carrington MD Primary Care Provider [phone] Encounter Details Date Type Department Care Team ([facility] Contact Info) Description 09/02/2016 External Results [place] [address] Danae Sepulveda [address] [place] [address] Social History Tobacco Use Types Packs/Day Years [...] Upcoming Encounters Date Type Department Care Team ([facility] Contact Info) Description 06/15/2024 10:00 AM EST Hospital Encounter Non-[place] [phone] Arrived 08/09/2024 10:00 AM EDT Hospital Encounter Non-[place] [address] Arrived documented as of this encounter Procedures Procedure Name Priority Date/Time Associated Diagnosis Comments ECG SCAN Routine 09/02/2016 documented in this encounter Results * Scan Doc: ECG (09/02/2016) Danae Eugenio Yiberuben MEDIA MGR SCAN EXT O RDR/RSLT documented in this encounter Visit Diagnoses Not on filedocumented in this encounter Care Teams Furnace Installer Helper Relationship Specialty Start Date End Date Dewayne Carrington MD PCP - General 09/02/16 05/08/24 documented as of this encounter
--- OUTSIDE RECORDS SUMMARY | 2024-05-24 14:30 | XMS_ITS | Encounter Summary ---
Author Organization [facility] [place] [address] Care Team Providers Care Wildlife Rehabilitator Name Role Phone Ángel Bignham MD Primary Care Provider [phone] Encounter Details Date Type Department Care Team (Late st Contact Info) Description 04/25/2015 Telephone Cardiology at [address] [phone] Kasandra Bellamy RN Social History Tobacco Use [...] AM EST Hospital Encounter [place] [address] Arrived 08/09/2024 10:00 AM EDT Hospital Encounter [place] [address] Arrived documented as of this encounter Visit Diagnoses Not on filedocumented in this encounter Care Teams Wildlife Rehabilitator Relationship Specialty Start Date End Date Ángel Bingham MD [facility] [address] [facility] [place] [address] PCP - General 01/31/14 09/01/16 documented as of this encounter
--- OUTSIDE RECORDS SUMMARY | 2024-05-24 14:30 | XMS_ITS | Encounter Summary ---
[facility] Organization [facility] [place] [address] Care Team Providers Care Sample Preparation Supervisor Name Role Phone Ángel Bingham MD Primary Care Provider [phone] Encounter Details Date Type Department Care Team (Late st Contact Info) Description 10/19/2015 External Results Cardiology at [address] [phone] Ángel Bingham MD [facility] [address] [place] [address] Social History Tobacco Use Types Packs/Day Years [...] Hospital Encounter Non-[place] [address]1000 Arrived 08/09/2024 10:00 AM EDT Hospital Encounter Non-[place]vasive [place] [address]1000 Arrived documented as of this encounter Procedures Procedure Name Priority Date/Time Associated Diagnosis Comments EP DEVICE SCAN Routine 10/16/2015 documented in this encounter Results * Scan Doc: EP Device (10/16/2015) Anatomical Region Laterality Modality Other Ángel Bingham MD MEDIA MGR SCAN EXT O RDR/RSLT documented in this encounter Visit Diagnoses Not on filedocumented in this encounter Care Teams Sample Preparation Supervisor Relationship Specialty Start Date End Date Ángel Bingham MD [facility] [address] [place] [address] PCP - General 01/31/14 09/01/16 documented as of this encounter
--- OUTSIDE RECORDS SUMMARY | 2024-05-24 14:30 | XMS_ITS | Encounter Summary ---
Author Organization [facility] [place] [address] Care Team Providers Care Steamer Blocker Name Role Phone Ángel Bingham MD Primary Care Provider [phone] Encounter Details Date Type Department Care Team (Late st Contact Info) Description 06/04/2015 Orders Only Cardiology at [address] [phone] Social History Tobacco Use Types Packs/Day Years [...] AM EST Hospital Encounter Non-Invasive [place] [address] Arrived 08/09/2024 10:00 AM EDT Hospital Encounter Non-Invasive [place] [address] Arrived documented as of this encounter Procedures Procedure Name Priority Date/Time Associated Diagnosis Comments CARDIAC DEVICE CHECK - REMOTE PATIENT INITIATED Routine 06/04/2015 5:00 PM EST documented in this encounter Results * Cardiac device check - Remote Patient Initiated (06/04/2015 5:00 PM EST) Date Time Interrogation Session [id number] IDCO Type Interrogation Session Remote Patient Initiated IDCO Clinic Name [facility] IDCO Battery Date Time of Measurements [id number] IDCO Battery Status Beginning of Service IDCO Battery Remaining Longevity 126 mo IDCO Battery Remaining Percentage 100 % IDCO Capacitor Last Charge Date Time IDCO Capacitor Charge Time 10.1 s IDCO Capacitor Charge Type Reformation IDCO Capacitor Last Charge Date Time [id number] IDCO Capacitor Charge Time 3.8 s IDCO Capacitor Charge Energy 21 J IDCO Capacitor Charge Type Shock IDCO Episode Identifier APM-13 IDCO Episode Date Time [id number] IDCO Episode Type Category Periodic EGM IDCO Episode Vendor Type Category APMRT IDCO Episode Detection And Therapy Details Presenting EGM IDCO Episode Identifier [id number] IDCO Episode Date Time [id number] IDCO Episode Type Category Other IDCO Episode Vendor Type Category XANDER IDCO Episode Detection Interval Ventricular 1,091 ms IDCO Episode Duration 62 s IDCO Episode Detection And Therapy Details Q IDCO Episode Identifier [id number] IDCO Episode Date Time [id number] IDCO Episode Type Category Other IDCO Episode Vendor Type Category XANDER IDCO Episode Detection Interval Ventricular 870 ms IDCO Episode Duration 56 s IDCO Episode Detection And Therapy Details IDCO Episode Identifier [id number] IDCO Episode Date Time [id number] IDCO Episode Type Category Other IDCO Episode Vendor Type Category XANDER IDCO Episode Detection Interval Ventricular 1,071 ms IDCO Episode Duration 62 s IDCO Episode Detection And Therapy Details Q IDCO Episode Identifier [id number] IDCO Episode Date Time [id number] IDCO Episode Type Category Other IDCO Episode Vendor Type Category XANDER IDCO Episode Detection Interval Ventricular 923 ms IDCO Episode Duration 49 s IDCO Episode Detection And Therapy Details Q IDCO Episode Identifier [id number] IDCO Episode Date Time [id number] IDCO Episode Type Category Other IDCO Episode Vendor Type Category XANDER IDCO Episode Detection Interval Ventricular 896 ms IDCO Episode Duration 53 s IDCO Episode Detection And Therapy Details Q IDCO Episode Identifier [id number] IDCO Episode Date Time IDCO Episode Type Category Other IDCO Episode Vendor Type Category XANDER IDCO Episode Detection Interval Ventricular 1,304 ms IDCO Episode Duration 63 s IDCO Episode Detection And Therapy Details IDCO Episode Identifier RYTNQ- IDCO Episode Date Time IDCO Episode Type Category Other IDCO Episode Vendor Type Category XANDER IDCO Episode Detection Interval Ventricular 1,017 ms IDCO Episode Duration 59 s IDCO Episode Detection And Therapy Details IDCO Episode Identifier TNQ- IDCO Episode Date Time IDCO Episode Type Category Other IDCO Episode Vendor Type Category XANDER IDCO Episode Detection Interval Ventricular 923 ms IDCO Episode Duration 60 s IDCO Episode Detection And Therapy Details IDCO Episode Identifier TNQ IDCO Episode Date Time IDCO Episode Type [...] And Therapy Details NonSustV ID[facility] Episode Date Time [id number] IDCO Episode Type Category Other IDCO Episode Vendor Type Category XANDER IDCO Episode Detection Interval Ventricular 909 ms IDCO Episode Duration 55 s IDCO Episode Detection And Therapy Details IDCO Episode Identifier V-12 IDCO Episode Date Time [id number] IDCO Episode Type Category VT IDCO Episode Vendor Type Category NSVT IDCO Episode Type Induced Flag NO IDCO Episode Detection Interval Ventricular 330 ms IDCO Episode Duration 11 s IDCO Episode Detection And Therapy Details NonSustV IDCO Episode Identifier ATR-32 IDCO Episode Date Time [id number] IDCO Episode Type Category AT/AF IDCO Episode Vendor Type Category ATR IDCO Episode Detection Interval Atrial 276 ms IDCO Episode Duration 25 s IDCO Episode Detection And Therapy Details ATR IDCO Episode Identifier ATR-31 IDCO Episode Date Time [id number] IDCO Episode Type Category AT/AF IDCO Episode Vendor Type Category ATR IDCO Episode Detection Interval Atrial 284 ms IDCO Episode Duration 23 s IDCO Episode Detection And Therapy Details ATR IDCO Episode Identifier V- IDCO Episode Date Time [id number] IDCO Episode Type Category [place] IDCO Episode [...] E162 IDCO Implantable Pulse Generator Serial Number [id number] IDCO Implantable Pulse Generator Automatic Nailing Machine Feeder [employer] IDCO Implantable Pulse Generator Implant Date 20140110 IDCO Implantable Lead Model 4136 IDCO Implantable Lead Serial Number [id number] IDCO Implantable Lead Automatic Nailing Machine Feeder Guidant IDCO Implantable Lead Implant Date 20130421 IDCO Implantable Lead Polarity Type Bipolar Lead IDCO Implantable Lead Location Right Atrium IDCO Implantable Lead Model 0292 IDCO Implantable Lead Serial Number [id number] IDCO Implantable Lead Automatic Nailing Machine Feeder [employer] IDCO Implantable Lead Implant Date IDCO [...] IDCO Lead Channel Pacing Threshold Measurement Method Fish Dressing Machine Feeder Manual IDCO Lead Channel Pacing Threshold [...] IDCO Lead Channel Pacing Threshold Measurement Method Fish Dressing Machine Feeder Manual IDCO Lead Channel Pacing Threshold [...] Other 06/04/2015 5:00 PM EST Physician Cardiology MD IMPLANTABLE CARD IAC DEVICE documented in this encounter Visit Diagnoses Not on filedocumented in this encounter Care Teams Steamer Blocker Relationship Specialty Start Date End Date Ángel Bingham MD [facility] [address] [place] [address] PCP - General 01/31/14 09/01/16 documented as of this encounter
--- OUTSIDE RECORDS SUMMARY | 2024-05-24 14:30 | XMS_ITS | Encounter Summary ---
Author Organization [facility] [place] [address] Care Team Providers Care Electron Beam Welder Name Role Phone Ángel Bingham MD Primary Care Provider [phone] Encounter Details Date Type Department Care Team (Late st Contact Info) Description 01/14/2015 Orders Only Cardiology at [address] [address] Social History Tobacco Use Types Packs/Day Years [...] Hospital Encounter Non-[place] [address] Arrived 08/09/2024 10:00 AM EDT Hospital Encounter Non-[place]vasive [place] [address] Arrived documented as of this encounter Procedures Procedure Name Priority Date/Time Associated Diagnosis Comments CARDIAC DEVICE CHECK - REMOTE PATIENT INITIATED Routine 01/14/2015 10:19 PM EDT documented in this encounter Results * Cardiac device check - Remote Patient Initiated (01/14/2015 10:19 PM EDT) Date Time Interrogation Session IDCO Type Interrogation Session Remote Patient Initiated [facility] IDCO Battery Date Time of Measurements [id number] IDCO Battery Status Beginning of Service IDCO Battery Remaining Longevity 126 mo IDCO Battery Remaining Percentage 100 % IDCO Capacitor Last Charge Date Time IDCO Capacitor Charge Time 10.0 s IDCO Capacitor Charge Type Reformation IDCO Episode Identifier APM-10 IDCO Episode Date Time [id number] IDCO Episode Type Category Periodic EGM IDCO Episode Vendor Type Category APMRT IDCO Episode Detection And Therapy Details Presenting EGM IDCO Episode Identifier Q-90 IDCO Episode Date Time [id number] IDCO Episode Type Category Other IDCO Episode Vendor Type Category XANDER IDCO Episode Detection Interval Ventricular 1,364 ms IDCO Episode Duration 63 s IDCO Episode Detection And Therapy Details IDCO Episode Identifier -89 IDCO Episode Date Time [id number] IDCO Episode Type Category Other IDCO Episode Vendor Type Category XANDER IDCO Episode Detection Interval Ventricular 1,071 ms IDCO Episode Duration 62 s IDCO Episode Detection And Therapy Details IDCO Episode Identifier IDCO Episode Date Time [id number] IDCO Episode Type Category Other IDCO Episode Vendor Type Category XANDER IDCO Episode Detection Interval Ventricular 1,071 ms IDCO Episode Duration 63 s IDCO Episode Detection And Therapy Details IDCO Episode Identifier 87 IDCO Episode Date Time [id number] IDCO Episode Type Category Other IDCO Episode Vendor Type Category XANDER IDCO Episode Detection Interval Ventricular 1,071 ms IDCO Episode Duration 64 s IDCO Episode Detection And Therapy Details IDCO Episode Identifier IDCO Episode Date Time [id number] IDCO Episode Type Category Other IDCO Episode Vendor Type Category XANDER IDCO Episode Detection Interval Ventricular 1,364 ms IDCO Episode Duration 64 s IDCO Episode Detection And Therapy Details IDCO Episode Identifier ATR-27 IDCO Episode Date Time [id number] IDCO Episode Type Category AT/AF IDCO Episode Vendor Type Category ATR IDCO Episode Detection Interval Atrial 270 ms IDCO Episode Duration 18 s IDCO Episode Detection And Therapy Details ATR IDCO Episode Identifier [id number] IDCO Episode Date Time IDCO Episode Type Category Other IDCO Episode Vendor Type Category XANDER IDCO Episode Detection Interval Ventricular 1,364 ms IDCO Episode Duration 117 s IDCO Episode Detection And Therapy Details Q IDCO Episode Identifier NYQ-84 IDCO Episode Date Time IDCO Episode Type Category Other IDCO Episode Vendor Type Category XANDER IDCO Episode Detection Interval Ventricular 1,333 ms IDCO Episode Duration 63 s IDCO Episode Detection And Therapy Details IDCO Episode Identifier [place] IDCO Episode Date Time IDCO Episode Type Category Other IDCO Episode Vendor Type Category XANDER IDCO Episode Detection Interval Ventricular 882 ms IDCO Episode Duration 56 s IDCO Episode Detection And Therapy Details [facility] IDCO Episode Identifier NY82 IDCO Episode Date Time IDCO Episode Type Category Other IDCO Episode Vendor Type Category XANDER IDCO Episode Detection Interval Ventricular 896 ms IDCO Episode Duration 52 s IDCO Episode Detection And Therapy Details IDCO Episode Identifier [place] IDCO Episode Date Time IDCO Episode Type Category Other IDCO Episode Vendor Type Category XANDER IDCO Episode Detection Interval Ventricular 1,053 ms IDCO Episode Duration 49 s IDCO Episode Detection And Therapy Details IDCO Episode Identifier ATR- IDCO Episode Date Time [id number] IDCO Episode Type Category AT/AF IDCO Episode Vendor Type Category ATR IDCO Episode Detection Interval Atrial 845 ms IDCO Episode Duration 1 s IDCO Episode Detection And Therapy Details ATR IDCO Episode Identifier ATR- IDCO Episode Date Time [id number] IDCO Episode Type Category AT/AF IDCO Episode Vendor Type Category ATR IDCO Episode Detection Interval Atrial 566 ms IDCO Episode Duration 5 s IDCO Episode Detection And Therapy Details ATR IDCO Episode Identifier ATR-24 IDCO Episode Date Time [id number] IDCO Episode Type Category AT/AF IDCO Episode Vendor Type Category ATR IDCO Episode Detection Interval Atrial 260 ms IDCO Episode Duration 321 s IDCO Episode Detection And Therapy Details ATR IDCO Episode Identifier ATR-23 IDCO Episode Date Time [id number] IDCO Episode Type Category AT/AF IDCO Episode [...] Episode Identifier ATR-21 IDCO Episode Date Time [id number] IDCO Episode Type Category AT/AF IDCO Episode Vendor Type Category ATR IDCO Episode Detection Interval Atrial 833 ms IDCO Episode Duration 1 s IDCO Episode Detection And Therapy Details ATR IDCO Episode Identifier ATR-20 IDCO Episode Date Time [id number] IDCO Episode Type Category AT/AF IDCO Episode Vendor Type Category ATR IDCO Episode Detection Interval Atrial 268 ms IDCO Episode Duration 37 s IDCO Episode Detection And Therapy Details ATR IDCO Episode Identifier ATR-19 IDCO Episode Date Time IDCO Episode Type Category AT/AF IDCO Episode Vendor Type Category ATR IDCO Episode Detection Interval Atrial 253 ms IDCO Episode Duration 149 s IDCO Episode Detection And Therapy Details ATR IDCO Episode Identifier ATR-18 IDCO Episode Date Time [id number] IDCO Episode Type Category AT/AF IDCO Episode [...] E162 IDCO Implantable Pulse Generator Serial Number [id number] IDCO Implantable Pulse Generator Supervisor Screen Making [place] Scientific IDCO Implantable Pulse Generator Implant Date 20140110 IDCO Implantable Lead Model 4136 IDCO Implantable Lead Serial Number [id number] IDCO Implantable Lead Supervisor Screen Making Guidant IDCO Implantable Lead Implant Date 20130421 IDCO Implantable Lead Polarity Type Bipolar Lead IDCO Implantable Lead Location Right Atrium IDCO Implantable Lead Model 0292 IDCO Implantable Lead Serial Number [id number] IDCO Implantable Lead Supervisor Screen Making [place] Scientific IDCO Implantable Lead Implant Date [...] IDCO Lead Channel Pacing Threshold Measurement Method Suction Dredge Dumping Supervisor Manual IDCO Lead Channel Pacing Threshold [...] IDCO Lead Channel Pacing Threshold Measurement Method Suction Dredge Dumping Supervisor Manual IDCO Lead Channel Pacing Threshold [...] on filedocumented in this encounter Care Teams Electron Beam Welder Relationship Specialty Start Date End Date Ángel Bingham MD [facility] [address] [place] [address] PCP - General 01/31/14 09/01/16 documented as of this encounter
--- OUTSIDE RECORDS SUMMARY | 2024-05-24 14:30 | XMS_ITS | Encounter Summary ---
Author Organization [facility] [place] [address] Care Team Providers Care Motor Polarizer Name Role Phone Ángel Bingham MD Primary Care Provider [phone] Reason for Visit * Reason Comments Cardiomyopathy Encounter Details Date Type Department Care Team (Late st Contact Info) Description 07/11/2015 3:00 PM EDT Office Visit Cardiology at [address] [phone] Raul Lopes, NAHUN ICD (implantable cardioverter-defibril lator), [...] in duration. Patient resistant to begin anticoagulation. Spot Worker: Kit Self MD PCP: ÁNGEL BINGHAM MD Final Parameters: New Atrial electrode: Guidant Dextrus Model# 4126-53 cm Serial# [id number] ?? Bipolar, steroid-tipped, active-fixation IS-1 lead ?? [...] at 10 V: No Old Ventricular electrode: [place] [employer] [place] Model# 0292 Serial# [id number] ?? Bipolar, steroid-tipped, active-fixation DF-4 lead ?? [...] Atrial electrode: Guidant Dextrus Model# 4136 Serial# [id number] ?? Bipolar, steroid-tipped, active-fixation IS-1 lead ?? Access: Axillary vein ?? Location Removed 04/17/2014 ?? Implanted: 01/10/2014 Pulse generator: [employer] Incepta Model# E162 Serial# [id number] ?? DDDR ICD ?? Location: Subcutaneous Tachy [...] histograms: Reasonable distribution Pacing percentages: AP 35%; MEAT DEPARTMENT MANAGER <1% Mode switch episodes: 36 events in [...] AM EST Hospital Encounter [place] [address] Arrived 08/09/2024 10:00 AM EDT Hospital Encounter Non[place] [address] Arrived documented as of this encounter Visit Diagnoses Diagnosis ICD (implantable cardioverter-defibrillator), dual, in situ Sustained VT (ventricular tachycardia) Paroxysmal ventricular tachycardia Typical atrial flutter Atrial flutter documented in this encounter Care Teams Motor Polarizer Relationship Specialty Start Date End Date Ángel Bingham MD [facility] [address] [facility] [address] PCP - General 01/31/14 09/01/16 documented as of this encounter
--- OUTSIDE RECORDS SUMMARY | 2024-05-24 14:30 | XMS_ITS | Encounter Summary ---
Author Organization [facility] [place] [address] Care Team Providers Care Event Security Officer Name Role Phone Ángle Bingham MD Primary Care Provider [phone] Reason for Visit * Reason Onset Date Comments Medication Refill 04/25/2015 Encounter Details Date Type Department Care Team (Late st Contact Info) Description 04/25/2015 Refill Cardiology at [address] [address] Kit Self MD [facility] [place] [address] Medication Refill Social History Tobacco Use Types [...] AM EST Hospital Encounter [place] [address] Arrived 08/09/2024 10:00 AM EDT Hospital Encounter [place] [address] Arrived documented as of this encounter Visit Diagnoses Not on filedocumented in this encounter Care Teams Event Security Officer Relationship Specialty Start Date End Date Ángel Bingham MD [facility] [address] [place] [address] PCP - General 01/31/14 09/01/16 documented as of this encounter
--- OUTSIDE RECORDS SUMMARY | 2024-05-24 14:30 | XMS_ITS | Encounter Summary ---
Author Organization [place] [address] Care Team Providers Care Double Needle Operator Name Role Phone Dewayne Carrington MD Primary Care Provider [phone] Encounter Details Date Type Department Care Team ([facility] st Contact Info) Description 09/02/2016 Telephone [place] [phone] Krystle Carrillo MD [facility] [place] [address] Social History Tobacco Use Types Packs/Day Years [...] 10:07pm Referring Provider: Dr. Sepulveda Patient Location: [facility] Past Medical History: Patient Active Problem [...] sustained VT s/p ICD who presents to [facility] with headache and high BP 150s-160s/90s. Patient was concerned that his ICD would be triggered due to the hypertension, therefore, he presentedto [facility]. Patient complained of intermittent palpitations over [...] Sepulveda is asking whether she should have [employer] interrogate the pacer tonight. Pertinent Diagnostic Findings: [...] character), patient should follow up with his clinical manager, Dr. Self within a week. I will [...] have personally reviewed EKGs. Krystle Carrillo MD Micro Computer Specialist PGY-4 Pager: [phone] documented in this encounter Plan of Treatment Upcoming Encounters Date Type Department Care Team (Late st Contact Info) Description 06/15/2024 10:00 AM EST Hospital Encounter Non-[place] [address] Arrived 08/09/2024 10:00 AM EDT Hospital Encounter Non-[place] [address] Arrived documented as of this encounter Visit Diagnoses Not on filedocumented in this encounter Care Teams Double Needle Operator Relationship Specialty Start Date End Date Dewayne Carrington MD PCP - General 09/02/16 05/08/24 documented as of this encounter
--- OUTSIDE RECORDS SUMMARY | 2024-05-24 14:30 | XMS_ITS | Encounter Summary ---
Author Organization [facility] [place] [address] Care Team Providers Care Special Needs Nanny Name Role Phone Ángel Bingham MD Primary Care Provider [phone] Reason for Visit * Reason Comments Ventricular Arrhythmia Encounter Details Date Type Department Care Team (Late st Contact Info) Description 01/14/2016 1:00 PM EDT Office Visit Cardiology at [address] [phone] Catherine Roberts RN Sustained VT (ventricular tachycardia) [...] duration. Patient remains resistant to begin anticoagulation. Manager Business Banking: Kit Self MD PCP: ÁNGEL BINGHAM MD Device Info: New Atrial electrode: Guidant Dextrus Model# 4126-53 cm Serial# [id number], implanted 04/17/2014 ?? Bipolar, steroid-tipped, active-fixation IS-1 lead ?? Access: Axillary vein ?? Location Right atrial appendage Old Ventricular electrode: [place] [employer] [place] Model# 0292 Serial# [id number] ?? Bipolar, steroid-tipped, active-fixation DF-4 lead ?? Access: Axillary vein ?? Location: Right ventricular apex ?? Implanted: 01/10/2014 Pulse generator: [place] [employer] Incepta Model# E162 Serial# [id number] ?? DDDR ICD ?? Location: Subcutaneous Tachy [...] histograms: Reasonable distribution Pacing percentages: AP 31%; FAST FOOD ASSISTANT RESTAURANT MANAGER <1% Mode switch episodes: 28 events in [...] __ Andres Sosa MD Cardiac Electrophysiology Services [facility] documented in this encounter Plan of Treatment Upcoming Encounters Date Type Department Care Team (Late st Contact Info) Description 06/15/2024 10:00 AM EST Hospital Encounter Non-[place] [address] Arrived 08/09/2024 10:00 AM EDT Hospital Encounter Non-[place]vasive [place] [address] Arrived documented as of this encounter Visit Diagnoses Diagnosis Sustained VT (ventricular tachycardia) Paroxysmal ventricular tachycardia documented in this encounter Care Teams Special Needs Nanny Relationship Specialty Start Date End Date Ángel Bingham MD [facility] [address] [place] [address] PCP - General 01/31/14 09/01/16 documented as of this encounter
--- OUTSIDE RECORDS SUMMARY | 2024-05-24 14:30 | XMS_ITS | Encounter Summary ---
Author Organization [facility] Address [facility] [place] [address] Care Team Providers Care Director Of Community Services Name Role Phone Ángel Bingham MD Primary Care Provider [phone] Encounter Details Date Type Department Care Team (Latest Contact Info) Description 07/11/2015 3:30 PM EDT Office Visit Cardiology at [address] [address] Kit Self MD [facility] [place] [address] ASCVD (arteriosclerotic cardiovascular disease); Typical atrial flutter [...] from the original note were not included. [facility] 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 Heart catheterization COMANCHE [...] 80 (documented on ICD interrogation 07/18/14) ?? [id number] score = 3 ?? Patient initially reluctant to be anticoagulated as recommended ??? Atrial pacemaker lead displacement New finding at office follow up 04/10/2014 Plan lead reposition/replacement ??? ICD (implantable cardioverter-defibrillator), dual, in situ New Atrial electrode: Guidant Dextrus Model# 4126-53 cm Serial# [id number] ?? Bipolar, steroid-tipped, active-fixation IS-1 lead ?? [...] at 10 V: No Old Ventricular electrode: [place] [employer] [place] Model# 0292 Serial# [id number] ?? Bipolar, steroid-tipped, active-fixation DF-4 lead ?? [...] Atrial electrode: Guidant Dextrus Model# 4136 Serial# [id number] ?? Bipolar, steroid-tipped, active-fixation IS-1 lead ?? Access: Axillary vein ?? Location Removed 04/17/2014 ?? Implanted: 01/10/2014 Pulse generator: [employer] Incepta Model# E162 Serial# [id number] ?? DDDR ICD ?? Location: Subcutaneous The [...] 2 times daily. 90 tablet 6 ??? Kermit-3 Fatty Acids (FISH OIL) 500 mg Cap [...] rarely but which is associated with a [id number] score of at least 3. He continues [...] AM EST Hospital Encounter [place] [address] Arrived 08/09/2024 10:00 AM EDT Hospital Encounter [place] [address] Arrived documented as of this encounter Visit Diagnoses Diagnosis ASCVD (arteriosclerotic cardiovascular disease) Unspecified cardiovascular disease Typical atrial flutter Atrial flutter documented in this encounter Care Teams Director Of Community Services Relationship Specialty Start Date End Date Ángel Bingham MD [facility] [address] [place] [address] PCP - General 01/31/14 09/01/16 documented as of this encounter
--- OUTSIDE RECORDS SUMMARY | 2024-05-24 14:30 | XMS_ITS | Encounter Summary ---
Author Organization [facility] [place] [address] Care Team Providers Care Processor Grain Name Role Phone Ángel Bingham MD Primary Care Provider [phone] Encounter Details Date Type Department Care Team (Late st Contact Info) Description 02/05/2015 Orders Only Cardiology at [address] [address] Social History Tobacco Use Types Packs/Day Years [...] AM EST Hospital Encounter [place] [address] Arrived 08/09/2024 10:00 AM EDT Hospital Encounter Non[place] [address] Arrived documented as of this encounter Procedures Procedure Name Priority Date/Time Associated Diagnosis Comments CARDIAC DEVICE CHECK - REMOTE PATIENT INITIATED Routine 02/05/2015 3:28 AM EDT documented in this encounter Results * Cardiac device check - Remote Patient Initiated (02/05/2015 3:28 AM EDT) Date Time Interrogation Session [id number] IDCO Type Interrogation Session Remote Patient Initiated [facility] IDCO Battery Date Time of Measurements [id number] IDCO Battery Status Beginning of Service IDCO Battery Remaining Longevity 126 mo IDCO Battery Remaining Percentage 100 % IDCO Capacitor Last Charge Date Time [id number] IDCO Capacitor Charge Time 10.0 s IDCO Capacitor Charge Type Reformation IDCO Episode Identifier APM-12 IDCO Episode Date Time [id number] IDCO Episode Type Category Periodic EGM IDCO Episode Vendor Type Category APMRT IDCO Episode Detection And Therapy Details Presenting EGM IDCO Episode Identifier PAQ-43 IDCO Episode Date Time [id number] IDCO Episode Type Category Other IDCO Episode Vendor Type Category XANDER IDCO Episode Detection Interval Ventricular 1,132 ms IDCO Episode Duration 63 s IDCO Episode Detection And Therapy Details IDCO Episode Identifier Q-42 IDCO Episode Date Time [id number] IDCO Episode Type Category Other IDCO Episode Vendor Type Category XANDER IDCO Episode Detection Interval Ventricular 1,154 ms IDCO Episode Duration 63 s IDCO Episode Detection And Therapy Details IDCO Episode Identifier -41 IDCO Episode Date Time [id number] IDCO Episode Type Category Other IDCO Episode Vendor Type Category XANDER IDCO Episode Detection Interval Ventricular 1,132 ms IDCO Episode Duration 63 s IDCO Episode Detection And Therapy Details IDCO Episode Identifier PA-40 IDCO Episode Date Time [id number] IDCO Episode Type Category Other IDCO Episode Vendor Type Category XANDER IDCO Episode Detection Interval Ventricular 1,091 ms IDCO Episode Duration 63 s IDCO Episode Detection And Therapy Details IDCO Episode Identifier 22 IDCO Episode Date Time [id number] IDCO Episode Type Category Other IDCO Episode Vendor Type Category XANDER IDCO Episode Detection Interval Ventricular 1,304 ms IDCO Episode Duration 63 s IDCO Episode Detection And Therapy Details IDCO Episode Identifier PAQ-77 IDCO Episode Date Time [id number] IDCO Episode Type Category Other IDCO Episode Vendor Type Category XANDER IDCO Episode Detection Interval Ventricular 1,304 ms IDCO Episode Duration 64 s IDCO Episode Detection And Therapy Details RYPAQ IDCO Episode Identifier [facility]-9337 IDCO Episode Date Time [id number] IDCO Episode Type Category Other IDCO Episode Vendor Type Category XANDER IDCO Episode Detection Interval Ventricular 1,304 ms IDCO Episode Duration 63 s IDCO Episode Detection And Therapy Details [facility] IDCO Episode Identifier [id number] IDCO Episode Date Time [id number] IDCO Episode Type Category Other IDCO Episode Vendor Type Category XANDER IDCO Episode Detection Interval Ventricular 1,304 ms IDCO Episode Duration 63 s IDCO Episode Detection And Therapy Details [facility] IDCO Episode Identifier [id number] IDCO Episode Date Time [id number] IDCO Episode Type Category Other IDCO Episode Vendor Type Category XANDER IDCO Episode Detection Interval Ventricular 1,304 ms IDCO Episode Duration 63 s IDCO Episode Detection And Therapy Details [facility] IDCO Episode Identifier [id number] IDCO Episode Date Time [id number] IDCO Episode Type Category Other IDCO Episode Vendor Type Category XANDER IDCO Episode Detection Interval Ventricular 1,304 ms IDCO Episode Duration 64 s IDCO Episode Detection And Therapy Details PAQ IDCO Episode Identifier ATR-28 IDCO Episode Date Time [id number] IDCO Episode Type Category AT/AF IDCO Episode [...] E162 IDCO Implantable Pulse Generator Serial Number [id number] IDCO Implantable Pulse Generator Transportation Equipment Painter [place] Scientific IDCO Implantable Pulse Generator Implant Date 20140110 IDCO Implantable Lead Model 4136 IDCO Implantable Lead Serial Number [id number] IDCO Implantable Lead Transportation Equipment Painter Guidant IDCO Implantable Lead Implant Date 20130421 IDCO Implantable Lead Polarity Type Bipolar Lead IDCO Implantable Lead Location Right Atrium IDCO Implantable Lead Model 0292 IDCO Implantable Lead Serial Number [id number] IDCO Implantable Lead Transportation Equipment Painter [place] [employer] IDCO Implantable Lead Implant Date IDCO [...] IDCO Lead Channel Pacing Threshold Measurement Method Casino Slot Supervisor Manual IDCO Lead Channel Pacing Threshold [...] IDCO Lead Channel Pacing Threshold Measurement Method Casino Slot Supervisor Manual IDCO Lead Channel Pacing Threshold [...] on filedocumented in this encounter Care Teams Processor Grain Relationship Specialty Start Date End Date Ángel Bingham MD [facility] [address] [facility] [place] [address] PCP - General 01/31/14 09/01/16 documented as of this encounter
--- OUTSIDE RECORDS SUMMARY | 2024-05-24 14:30 | XMS_ITS | Encounter Summary ---
Author Organization [facility] [place] [address] Care Team Providers Care Fare Register Repairer Name Role Phone Ángel Bingham MD Primary Care Provider [phone] Encounter Details Date Type Department Care Team (Late st Contact Info) Description 04/15/2016 Orders Only Cardiology at [address] [phone] Social History Tobacco Use Types Packs/Day Years [...] AM EST Hospital Encounter [place] [address] Arrived 08/09/2024 10:00 AM EDT Hospital Encounter [place] [address] Arrived documented as of this encounter Procedures Procedure Name Priority Date/Time Associated Diagnosis Comments CARDIAC DEVICE CHECK - REMOTE SCHEDULED Routine 04/15/2016 12:42 AM EST documented in this encounter Results * (ABNORMAL) Cardiac device check - Remote Scheduled (04/15/2016 12:42 AM EST) Date Time Interrogation Session [id number] IDCO Type Interrogation Session Remote Scheduled [facility] Name [facility] IDCO Battery Date Time of Measurements [id number] IDCO Battery Status Beginning of Service IDCO Battery Remaining Longevity 108 mo IDCO Battery Remaining Percentage 100 % IDCO Capacitor Last Charge Date Time [id number] IDCO Capacitor Charge Time 10.3 s IDCO Capacitor Charge Type Reformation IDCO Capacitor Last Charge Date Time [id number] IDCO Capacitor Charge Time 3.8 s IDCO Capacitor Charge Energy 21 J IDCO Capacitor Charge Type Shock IDCO Episode Identifier APM-17 IDCO Episode Date Time [id number] IDCO Episode Type Category Periodic EGM IDCO Episode Vendor Type Category APMRT IDCO Episode Detection And Therapy Details Presenting EGM IDCO Episode Identifier [id number] IDCO Episode Date Time [id number] IDCO Episode Type Category Other IDCO Episode Vendor Type Category XANDER IDCO Episode Detection Interval Ventricular 1,017 ms IDCO Episode Duration 61 s IDCO Episode Detection And Therapy Details Q IDCO Episode Identifier [id number] IDCO Episode Date Time [id number] IDCO Episode Type Category Other IDCO Episode Vendor Type Category XANDER IDCO Episode Detection Interval Ventricular 1,034 ms IDCO Episode Duration 63 s IDCO Episode Detection And Therapy Details IDCO Episode Identifier [id number] IDCO Episode Date Time [id number] IDCO Episode Type Category Other IDCO Episode Vendor Type Category XANDER IDCO Episode Detection Interval Ventricular 968 ms IDCO Episode Duration 59 s IDCO Episode Detection And Therapy Details Q IDCO Episode Identifier [id number] IDCO Episode Date Time [id number] IDCO Episode Type Category Other IDCO Episode Vendor Type Category XANDER IDCO Episode Detection Interval Ventricular 984 ms IDCO Episode Duration 61 s IDCO Episode Detection And Therapy Details Q IDCO Episode Identifier [id number] IDCO Episode Date Time [id number] IDCO Episode Type Category Other IDCO Episode Vendor Type Category XANDER IDCO Episode Detection Interval Ventricular 1,017 ms IDCO Episode Duration 61 s IDCO Episode Detection And Therapy Details [id number] Episode Date Time [id number] IDCO Episode Type Category Other IDCO Episode Vendor Type Category XANDER IDCO Episode Detection Interval Ventricular 1,017 ms IDCO Episode Duration 62 s IDCO Episode Detection And Therapy Details [facility] IDCO Episode Identifier [id number] IDCO Episode Date Time [id number] IDCO Episode Type Category Other IDCO Episode Vendor Type Category XANDER IDCO Episode Detection Interval Ventricular 1,000 ms IDCO Episode Duration 59 s IDCO Episode Detection And Therapy Details [facility] IDCO Episode Identifier [id number] Episode Date Time [id number] IDCO Episode Type Category Other IDCO Episode Vendor Type Category XANDER IDCO Episode Detection Interval Ventricular 1,000 ms IDCO Episode Duration 60 s IDCO Episode Detection And Therapy Details [facility] IDCO Episode [facility]ifier [id number] Episode Date Time [id number] IDCO Episode Type Category Other IDCO Episode Vendor Type Category XANDER IDCO Episode Detection Interval Ventricular 1,017 ms IDCO Episode Duration 60 s IDCO Episode Detection And Therapy Details [facility] IDCO Episode Identifier [id number] IDCO Episode Date Time [id number] IDCO Episode Type Category Other IDCO Episode Vendor Type Category XANDER IDCO Episode Detection Interval Ventricular 952 ms IDCO Episode Duration 60 s IDCO Episode Detection And Therapy Details [place] IDCO Episode Identifier V-148 IDCO Episode Date Time [id number] IDCO Episode Type Category VT IDCO Episode Vendor Type Category NSVT IDCO Episode Type Induced Flag NO IDCO Episode Detection Interval Ventricular 380 ms IDCO Episode Duration 5 s IDCO Episode Detection And Therapy Details NonSustV IDCO Episode Identifier V-147 IDCO Episode Date Time [id number] IDCO Episode Type Category VT IDCO Episode Vendor Type Category NSVT IDCO Episode Type Induced Flag NO IDCO Episode Detection Interval Ventricular 405 ms IDCO Episode Duration 5 s IDCO Episode Detection And Therapy Details NonSustV IDCO Episode Identifier V-146 IDCO Episode Date Time [id number] IDCO Episode Type Category VT IDCO Episode Vendor Type Category NSVT IDCO Episode Type Induced Flag NO IDCO Episode Detection Interval Ventricular 390 ms IDCO Episode Duration 20 s IDCO Episode Detection And Therapy Details NonSustV IDCO Episode Identifier V-145 IDCO Episode Date Time [id number] IDCO Episode Type Category VT IDCO Episode Vendor Type Category NSVT IDCO Episode Type Induced Flag NO IDCO Episode Detection Interval Ventricular 387 ms IDCO Episode Duration 53 s IDCO Episode Detection And Therapy Details NonSustV IDCO Episode Identifier V-144 IDCO Episode Date Time [id number] IDCO Episode Type Category VT IDCO Episode Vendor Type Category NSVT IDCO Episode Type Induced Flag NO IDCO Episode Detection Interval Ventricular 455 ms IDCO Episode Duration 18 s IDCO Episode Detection And Therapy Details NonSustV IDCO Episode Identifier V-143 IDCO Episode Date Time [id number] IDCO Episode Type Category VT IDCO Episode Vendor Type Category NSVT IDCO Episode Type Induced Flag NO IDCO Episode Detection Interval Ventricular 375 ms IDCO Episode Duration 32 s IDCO Episode Detection And Therapy Details NonSustV IDCO Episode Identifier V-142 IDCO Episode Date Time [id number] IDCO Episode Type Category VT IDCO Episode Vendor Type Category NSVT IDCO Episode Type Induced Flag NO IDCO Episode Detection Interval Ventricular 408 ms IDCO Episode Duration 5 s IDCO Episode Detection And Therapy Details NonSustV IDCO Episode Identifier V-141 IDCO Episode Date Time [id number] IDCO Episode Type Category VT IDCO Episode Vendor Type Category NSVT IDCO Episode Type Induced Flag NO IDCO Episode Detection Interval Ventricular 382 ms IDCO Episode Duration 24 s IDCO Episode Detection And Therapy Details NonSustV IDCO Episode Identifier V-140 IDCO Episode Date Time [id number] IDCO Episode Type Category VT IDCO Episode Vendor Type Category NSVT IDCO Episode Type Induced Flag NO IDCO Episode Detection Interval Ventricular 364 ms IDCO Episode Duration 51 s IDCO Episode Detection And Therapy Details NonSustV IDCO Episode Identifier V-139 IDCO Episode Date Time [id number] IDCO Episode Type Category VT IDCO Episode Vendor Type Category NSVT IDCO Episode Type Induced Flag NO IDCO Episode Detection Interval Ventricular 414 ms IDCO Episode Duration 8 s IDCO Episode Detection And Therapy Details NonSustV IDCO Episode Identifier ATR-110 IDCO Episode Date Time [id number] IDCO Episode Type Category AT/AF IDCO Episode Vendor Type Category ATR IDCO Episode Detection Interval Atrial 207 ms IDCO Episode Duration 23,715 s IDCO Episode Detection And Therapy Details ATR IDCO Episode Identifier ATR-109 IDCO Episode Date Time [id number] IDCO Episode Type Category AT/AF IDCO Episode Vendor Type Category ATR IDCO Episode Detection Interval Atrial 199 ms IDCO Episode Duration 347 s IDCO Episode Detection And Therapy Details ATR IDCO Episode Identifier ATR-108 IDCO Episode Date Time [id number] IDCO Episode Type Category AT/AF IDCO Episode Vendor Type Category ATR IDCO Episode Detection Interval Atrial 203 ms IDCO Episode Duration IDCO Episode Detection And Therapy Details ATR IDCO Episode Identifier ATR-107 IDCO Episode Date Time [id number] IDCO Episode Type Category AT/AF IDCO Episode Vendor Type Category ATR IDCO Episode Detection Interval Atrial 194 ms IDCO Episode Duration 23 s IDCO Episode Detection And Therapy Details ATR IDCO Episode Identifier ATR-106 IDCO Episode Date Time [id number] IDCO Episode Type Category AT/AF IDCO Episode [...] Episode Identifier ATR-104 IDCO Episode Date Time [id number] IDCO Episode Type Category AT/AF IDCO Episode Vendor Type Category ATR IDCO Episode Detection Interval Atrial 199 ms IDCO Episode Duration 1,223 s IDCO Episode Detection And Therapy Details ATR IDCO Episode Identifier ATR-103 IDCO Episode Date Time [id number] IDCO Episode Type Category AT/AF IDCO Episode Vendor Type Category ATR IDCO Episode Detection Interval Atrial 253 ms IDCO Episode Duration 984 s IDCO Episode Detection And Therapy Details ATR IDCO Episode Identifier ATR-102 IDCO Episode Date Time [id number] IDCO Episode Type Category AT/AF IDCO Episode Vendor Type Category ATR IDCO Episode Detection Interval Atrial 195 ms IDCO Episode Duration 320 s IDCO Episode Detection And Therapy Details ATR IDCO Episode Identifier ATR-101 IDCO Episode Date Time [id number] IDCO Episode Type Category AT/AF IDCO Episode Vendor Type Category ATR IDCO Episode Detection Interval Atrial 205 ms IDCO Episode Duration 1 s IDCO Episode Detection And Therapy Details ATR IDCO Episode Identifier V-92 IDCO Episode Date Time IDCO Episode Type [...] E162 IDCO Implantable Pulse Generator Serial Number [id number] IDCO Implantable Pulse Generator Net Application Support Specialist [place] IDCO Implantable Pulse Generator Implant Date 20140110 IDCO Implantable Lead Model 4136 IDCO Implantable Lead Serial Number [id number] IDCO Implantable Lead Net Application Support Specialist [employer]Giga[employer]te IDCO Implantable Lead Implant Date 20130421 IDCO Implantable Lead Polarity Type Bipolar Lead IDCO Implantable Lead Location Right Atrium IDCO Implantable Lead Model 0292 IDCO Implantable Lead Serial Number [id number] IDCO Implantable Lead Net Application Support Specialist [place] [employer] IDCO Implantable Lead Implant Date IDCO [...] IDCO Lead Channel Pacing Threshold Measurement Method Graduate Advisor Manual IDCO Lead Channel Pacing Threshold [...] IDCO Lead Channel Pacing Threshold Measurement Method Graduate Advisor Manual IDCO Lead Channel Pacing Threshold [...] on filedocumented in this encounter Care Teams Fare Register Repairer Relationship Specialty Start Date End Date Ángel Bingham MD [facility] [address] [place] [address] PCP - General 01/31/14 09/01/16 documented as of this encounter
--- OUTSIDE RECORDS SUMMARY | 2024-05-24 14:30 | XMS_ITS | Encounter Summary ---
Author Organization [facility] [place] [address] Care Team Providers Care Image Scientist Name Role Phone Ángel Bingham MD Primary Care Provider [phone] Encounter Details Date Type Department Care Team (Late st Contact Info) Description 03/29/2015 External Results Cardiology at [address] [phone] Ángel Bingham MD [facility] [address] [place] [phone] Social History Tobacco Use Types Packs/Day Years [...] AM EST Hospital Encounter Non-[place] [address] Arrived 08/09/2024 10:00 AM EDT Hospital Encounter Non-[place] [address] Arrived documented as of this encounter Procedures Procedure Name Priority Date/Time Associated Diagnosis Comments EP DEVICE SCAN Routine 01/16/2015 documented in this encounter Results * Scan Doc: EP Device (01/16/2015) Anatomical Region Laterality Modality Other Ángel Bingham MD MEDIA MGR SCAN EXT O RDR/RSLT documented in this encounter Visit Diagnoses Not on filedocumented in this encounter Care Teams Image Scientist Relationship Specialty Start Date End Date Ángel Bingham MD [facility] [address] [place] [address] PCP - General 01/31/14 09/01/16 documented as of this encounter
--- OUTSIDE RECORDS SUMMARY | 2024-05-24 14:30 | XMS_ITS | Encounter Summary ---
Author Organization [facility] [place] [address] Care Team Providers Care Hand Sewer Shoes Name Role Phone Dewayne Carrington MD Primary Care Provider Encounter Details Date Type Department Care Team (Late st Contact Info) Description 09/03/2016 Orders Only Cardiology at [address] [phone] Social History Tobacco Use Types Packs/Day Years [...] AM EST Hospital Encounter [place] [address] Arrived 08/09/2024 10:00 AM EDT Hospital Encounter [place] [address] Arrived documented as of this encounter Procedures Procedure Name Priority Date/Time Associated Diagnosis Comments CARDIAC DEVICE CHECK - REMOTE PATIENT INITIATED Routine 09/03/2016 3:22 AM EDT documented in this encounter Results * Cardiac device check - Remote Patient Initiated (09/03/2016 3:22 AM EDT) Date Time Interrogation Session [id number] IDCO Type Interrogation Session Remote Patient Initiated IDCO Clinic Name [facility] IDCO Battery Date Time of Measurements [id number] IDCO Battery Status Beginning of Service IDCO Battery Remaining Longevity 108 mo IDCO Battery Remaining Percentage 100 % IDCO Capacitor Last Charge Date Time [id number] IDCO Capacitor Charge Time 10.4 s IDCO Capacitor Charge Type Reformation IDCO Capacitor Last Charge Date Time [id number] IDCO Capacitor Charge Time 3.8 s IDCO Capacitor Charge Energy 21 J IDCO Capacitor Charge Type Shock IDCO Episode Identifier APM-18 IDCO Episode Date Time [id number] IDCO Episode Type Category Periodic EGM IDCO Episode Vendor Type Category APMRT IDCO Episode Detection And Therapy Details Presenting EGM IDCO Episode Identifier [id number] IDCO Episode Date Time [id number] IDCO Episode Type Category Other IDCO Episode Vendor Type Category XANDER IDCO Episode Detection Interval Ventricular 923 ms IDCO Episode Duration 57 s IDCO Episode Detection And Therapy Details IDCO Episode Identifier [id number] IDCO Episode Date Time [id number] IDCO Episode Type Category Other IDCO Episode Vendor Type Category XANDER IDCO Episode Detection Interval Ventricular 923 ms IDCO Episode Duration 57 s IDCO Episode Detection And Therapy Details IDCO Episode Identifier [id number] IDCO Episode Date Time [id number] IDCO Episode Type Category Other IDCO Episode Vendor Type Category XANDER IDCO Episode Detection Interval Ventricular 952 ms IDCO Episode Duration 56 s IDCO Episode Detection And Therapy Details IDCO Episode Identifier [id number] IDCO Episode Date Time [id number] IDCO Episode Type Category Other IDCO Episode Vendor Type Category XANDER IDCO Episode Detection Interval Ventricular 870 ms IDCO Episode Duration 54 s IDCO Episode Detection And Therapy Details IDCO Episode Identifier [id number] IDCO Episode Date Time [id number] IDCO Episode Type Category Other IDCO Episode Vendor Type Category XANDER IDCO Episode Detection Interval Ventricular 690 ms IDCO Episode Duration 40 s IDCO Episode Detection And Therapy Details [facility] Episode Date Time [id number] IDCO Episode Type Category Other IDCO Episode Vendor Type Category XANDER IDCO Episode Detection Interval Ventricular 968 ms IDCO Episode Duration 58 s IDCO Episode Detection And Therapy Details [facility] Episode Date Time [id number] IDCO Episode Type Category Other IDCO Episode Vendor Type Category XANDER IDCO Episode Detection Interval Ventricular 952 ms IDCO Episode Duration 58 s IDCO Episode Detection And Therapy Details [facility] IDCO Episode Identifier [facility]-99246 IDCO Episode Date Time [id number] IDCO Episode Type Category Other IDCO Episode Vendor Type Category XANDER IDCO Episode Detection Interval Ventricular 909 ms IDCO Episode Duration 78 s IDCO Episode Detection And Therapy Details [facility] IDCO Episode Identifier [facility]-60317 IDCO Episode Date Time [id number] IDCO Episode Type Category Other IDCO Episode Vendor Type Category XANDER IDCO Episode Detection Interval Ventricular 984 ms IDCO Episode Duration 54 s IDCO Episode Detection And Therapy Details [facility] Episode Date Time [id number] IDCO Episode Type Category Other IDCO Episode Vendor Type Category XANDER IDCO Episode Detection Interval Ventricular 923 ms IDCO Episode Duration 53 s IDCO Episode Detection And Therapy Details [facility] IDCO Episode Identifier ATR-120 IDCO Episode Date Time [id number] IDCO Episode Type Category AT/AF IDCO Episode Vendor Type Category ATR IDCO Episode Detection Interval Atrial 265 ms IDCO Episode Duration 52 s IDCO Episode Detection And Therapy Details ATR IDCO Episode Identifier ATR-119 IDCO Episode Date Time [id number] IDCO Episode Type Category AT/AF IDCO Episode Vendor Type Category ATR IDCO Episode Detection Interval Atrial 227 ms IDCO Episode Duration 19,859 s IDCO Episode Detection And Therapy Details ATR IDCO Episode Identifier ATR-118 IDCO Episode Date Time [id number] IDCO Episode Type Category AT/AF IDCO Episode Vendor Type Category ATR IDCO Episode Detection Interval Atrial 800 ms IDCO Episode Duration 1 s IDCO Episode Detection And Therapy Details ATR IDCO Episode Identifier ATR-117 IDCO Episode Date Time [id number] IDCO Episode Type Category AT/AF IDCO Episode Vendor Type Category ATR IDCO Episode Detection Interval Atrial 287 ms IDCO Episode Duration 27 s IDCO Episode Detection And Therapy Details ATR IDCO Episode Identifier ATR-116 IDCO Episode Date Time [id number] IDCO Episode Type Category AT/AF IDCO Episode Vendor Type Category ATR IDCO Episode Detection Interval Atrial 882 ms IDCO Episode Duration 4 s IDCO Episode Detection And Therapy Details ATR IDCO Episode Identifier ATR-115 IDCO Episode Date Time [id number] IDCO Episode Type Category AT/AF IDCO Episode Vendor Type Category ATR IDCO Episode Detection Interval Atrial 317 ms IDCO Episode Duration 487 s IDCO Episode Detection And Therapy Details ATR IDCO Episode Identifier ATR-114 IDCO Episode Date Time [id number] IDCO Episode Type Category AT/AF IDCO Episode Vendor Type Category ATR IDCO Episode Detection Interval Atrial 241 ms IDCO Episode Duration 53 s IDCO Episode Detection And Therapy Details ATR IDCO Episode Identifier V-171 IDCO Episode Date Time [id number] IDCO Episode Type Category VT IDCO Episode Vendor Type Category NSVT IDCO Episode Type Induced Flag NO IDCO Episode Detection Interval Ventricular 353 ms IDCO Episode Duration 6 s IDCO Episode Detection And Therapy Details NonSustV IDCO Episode Identifier V-170 IDCO Episode Date Time [id number] IDCO Episode Type Category VT IDCO Episode Vendor Type Category NSVT IDCO Episode Type Induced Flag NO IDCO Episode Detection Interval Ventricular 351 ms IDCO Episode Duration 6 s IDCO Episode Detection And Therapy Details NonSustV IDCO Episode Identifier V-169 IDCO Episode Date Time [id number] IDCO Episode Type Category VT IDCO Episode Vendor Type Category NSVT IDCO Episode Type Induced Flag NO IDCO Episode Detection Interval Ventricular 351 ms IDCO Episode Duration 6 s IDCO Episode Detection And Therapy Details NonSustV IDCO Episode Identifier V-168 IDCO Episode Date Time [id number] IDCO Episode Type Category VT IDCO Episode Vendor Type Category NSVT IDCO Episode Type Induced Flag NO IDCO Episode Detection Interval Ventricular 351 ms IDCO Episode Duration 18 s IDCO Episode Detection And Therapy Details NonSustV IDCO Episode Identifier V-167 IDCO Episode Date Time IDCO Episode Type Category VT IDCO Episode Vendor Type Category NSVT IDCO Episode Type Induced Flag NO IDCO Episode Detection Interval Ventricular 359 ms IDCO Episode Duration 10 s IDCO Episode Detection And Therapy Details NonSustV IDCO Episode Identifier V-166 IDCO Episode Date Time [id number] IDCO Episode Type Category VT IDCO Episode Vendor Type Category NSVT IDCO Episode Type Induced Flag NO IDCO Episode Detection Interval Ventricular 359 ms IDCO Episode Duration 7 s IDCO Episode Detection And Therapy Details NonSustV IDCO Episode Identifier V-165 IDCO Episode Date Time [id number] IDCO Episode Type Category VT IDCO Episode Vendor Type Category NSVT IDCO Episode Type Induced Flag NO IDCO Episode Detection Interval Ventricular 305 ms IDCO Episode Duration 7 s IDCO Episode Detection And Therapy Details NonSustV IDCO Episode Identifier V-164 IDCO Episode Date Time [id number] IDCO Episode Type Category VT IDCO Episode Vendor Type Category NSVT IDCO Episode Type Induced Flag NO IDCO Episode Detection Interval Ventricular 368 ms IDCO Episode Duration 6 s IDCO Episode Detection And Therapy Details NonSustV IDCO Episode Identifier V-163 IDCO Episode Date Time [id number] IDCO Episode Type Category VT IDCO Episode Vendor Type Category NSVT IDCO Episode Type Induced Flag NO IDCO Episode Detection Interval Ventricular 368 ms IDCO Episode Duration 7 s IDCO Episode Detection And Therapy Details NonSustV IDCO Episode Identifier V-162 IDCO Episode Date Time [id number] IDCO Episode Type Category VT IDCO Episode Vendor Type Category NSVT IDCO Episode Type Induced Flag NO IDCO Episode Detection Interval Ventricular 377 ms IDCO Episode Duration 7 s IDCO Episode Detection And Therapy Details NonSustV IDCO Episode Identifier ATR-113 IDCO Episode Date Time [id number] IDCO Episode Type Category AT/AF IDCO Episode Vendor Type Category ATR IDCO Episode Detection Interval Atrial 258 ms IDCO Episode Duration 10 s IDCO Episode Detection And Therapy Details ATR IDCO Episode Identifier ATR-112 IDCO Episode Date Time [id number] IDCO Episode Type Category AT/AF IDCO Episode Vendor Type Category ATR IDCO Episode Detection Interval Atrial 246 ms IDCO Episode Duration 228 s IDCO Episode Detection And Therapy Details ATR IDCO Episode Identifier ATR-111 IDCO Episode Date Time [id number] IDCO Episode Type Category AT/AF IDCO Episode [...] E162 IDCO Implantable Pulse Generator Serial Number [id number] IDCO Implantable Pulse Generator [employer] Financial Developer [place] Scientific IDCO Implantable Pulse Generator Implant Date 20140110 IDCO Implantable Lead Model 4136 IDCO Implantable Lead Serial Number [id number] IDCO Implantable Lead Peoplesoft Financial Developer [employer] IDCO Implantable Lead Implant Date 20130421 IDCO Implantable Lead Polarity Type Bipolar Lead IDCO Implantable Lead Location Right Atrium IDCO Implantable Lead Model 0292 IDCO Implantable Lead Serial Number [id number] IDCO Implantable Lead Pe[employer] Financial Developer [place] Scientific IDCO Implantable Lead Implant Date IDCO [...] IDCO Lead Channel Pacing Threshold Measurement Method Analytics Analyst Manual IDCO Lead Channel Pacing Threshold [...] IDCO Lead Channel Pacing Threshold Measurement Method Analytics Analyst Manual IDCO Lead Channel Pacing Threshold [...] filedocumented in this encounter Care Teams Hand Sewer Shoes Relationship Specialty Start Date End Date Dewayne Carrington MD PCP - General 09/02/16 05/08/24 documented as of this encounter
--- OUTSIDE RECORDS SUMMARY | 2024-05-24 14:30 | XMS_ITS | Encounter Summary ---
Author Organization formerly [place] [address] Care Team Providers Care Senior Outside Sales Representative Name Role Phone Ángel Bingham MD Primary Care Provider [phone] Encounter Details Date Type Department Care Team (Late st Contact Info) Description 10/16/2015 Orders Only Cardiology at [address] [address] Social History Tobacco Use Types Packs/Day Years [...] AM EST Hospital Encounter Non-[place] [address] Arrived 08/09/2024 10:00 AM EDT Hospital Encounter Non-[place] [address] Arrived documented as of this encounter Procedures Procedure Name Priority Date/Time Associated Diagnosis Comments CARDIAC DEVICE CHECK - REMOTE SCHEDULED Routine 10/16/2015 12:41 AM EDT documented in this encounter Results * Cardiac device check - Remote Scheduled (10/16/2015 12:41 AM EDT) Date Time Interrogation Session IDCO Type Interrogation Session Remote Scheduled IDCO Clinic Name [facility] IDCO Battery Date Time of Measurements [id number] IDCO Battery Status Beginning of Service IDCO [...] Therapy Details Presenting EGM IDCO Episode Identifier [id number] IDCO Episode Date Time IDCO Episode Type Category Other IDCO Episode Vendor Type Category XANDER IDCO Episode Detection Interval Ventricular 938 ms IDCO Episode Duration 54 s IDCO Episode Detection And Therapy Details IDCO Episode Identifier [id number] IDCO Episode Date Time [id number] IDCO Episode Type Category Other IDCO Episode Vendor Type Category XANDER IDCO Episode Detection Interval Ventricular 968 ms IDCO Episode Duration 59 s IDCO Episode Detection And Therapy Details IDCO Episode Identifier [id number] IDCO Episode Date Time [id number] IDCO Episode Type Category Other IDCO Episode Vendor Type Category XANDER IDCO Episode Detection Interval Ventricular 1,071 ms IDCO Episode Duration 62 s IDCO Episode Detection And Therapy Details IDCO Episode Identifier [id number] IDCO Episode Date Time [id number] IDCO Episode Type Category Other IDCO Episode Vendor Type Category XANDER IDCO Episode Detection Interval Ventricular 1,053 ms IDCO Episode Duration 63 s IDCO Episode Detection And Therapy Details IDCO Episode Identifier [id number] IDCO Episode Date Time [id number] IDCO Episode Type Category Other IDCO Episode Vendor Type Category XANDER IDCO Episode Detection Interval Ventricular 1,071 ms IDCO Episode Duration 62 s IDCO Episode Detection And Therapy Details Q IDCO Episode Identifier [id number] IDCO Episode Date Time [id number] IDCO Episode Type Category Other IDCO Episode Vendor Type Category XANDER IDCO Episode Detection Interval Ventricular 1,053 ms IDCO Episode Duration 63 s IDCO Episode Detection And Therapy Details Q IDCO Episode Identifier [id number] IDCO Episode Date Time [id number] IDCO Episode Type Category Other IDCO Episode Vendor Type Category XANDER IDCO Episode Detection Interval Ventricular 1,053 ms IDCO Episode Duration 63 s IDCO Episode Detection And Therapy Details Q IDCO Episode Identifier [id number] IDCO Episode Date Time [id number] IDCO Episode Type Category Other IDCO Episode Vendor Type Category XANDER IDCO Episode Detection Interval Ventricular 1,154 ms IDCO Episode Duration 63 s IDCO Episode Detection And Therapy Details IDCO Episode Identifier [id number] IDCO Episode Date Time [id number] IDCO Episode Type Category Other IDCO Episode Vendor Type Category XANDER IDCO Episode Detection Interval Ventricular 1,053 ms IDCO Episode Duration 63 s IDCO Episode Detection And Therapy Details Q IDCO Episode Identifier [id number] IDCO Episode Date Time [id number] IDCO Episode Type Category Other IDCO Episode Vendor Type Category XANDER IDCO Episode Detection Interval Ventricular 1,071 ms IDCO Episode Duration 63 s IDCO Episode Detection And Therapy Details Q IDCO Episode Identifier ATR-46 IDCO Episode Date Time [id number] IDCO Episode Type Category AT/AF IDCO Episode Vendor Type Category ATR IDCO Episode Detection Interval Atrial 311 ms IDCO Episode Duration 25 s IDCO Episode Detection And Therapy Details ATR IDCO Episode Identifier ATR-45 IDCO Episode Date Time [id number] IDCO Episode Type Category AT/AF IDCO Episode Vendor Type Category ATR IDCO Episode Detection Interval Atrial 612 ms IDCO Episode Duration 6 s IDCO Episode Detection And Therapy Details ATR IDCO Episode Identifier ATR-44 IDCO Episode Date Time [id number] IDCO Episode Type Category AT/AF IDCO Episode Vendor Type Category ATR IDCO Episode Detection Interval Atrial 279 ms IDCO Episode Duration 75 s IDCO Episode Detection And Therapy Details ATR IDCO Episode Identifier ATR-43 IDCO Episode Date Time IDCO Episode Type [...] And Therapy Details NonSustV IDCO Episode Identifier V-38 IDCO Episode Date Time IDCO Episode Type Category VT IDCO Episode Vendor Type Category NSVT IDCO Episode Type Induced Flag NO IDCO Episode Detection Interval Ventricular 323 ms IDCO Episode Duration 11 s IDCO Episode Detection And Therapy Details NonSustV IDCO Episode Identifier V-37 IDCO Episode Date Time IDCO Episode Type Category VT IDCO Episode Vendor Type Category NSVT IDCO Episode Type Induced Flag NO IDCO Episode Detection Interval Ventricular 330 ms IDCO Episode Duration 6 s IDCO Episode Detection And Therapy Details NonSustV IDCO Episode Identifier V-36 IDCO Episode Date Time IDCO Episode Type Category VT IDCO Episode Vendor Type Category NSVT IDCO Episode Type Induced Flag NO IDCO Episode Detection Interval Ventricular 330 ms IDCO Episode Duration 6 s IDCO Episode Detection And Therapy Details NonSustV IDCO Episode Identifier ATR-41 IDCO Episode Date Time [id number] IDCO Episode Type Category AT/AF IDCO Episode Vendor Type Category ATR IDCO Episode Detection Interval Atrial 262 ms IDCO Episode Duration 40 s IDCO Episode Detection And Therapy Details ATR IDCO Episode Identifier ATR-40 IDCO Episode Date Time IDCO Episode Type Category AT/AF IDCO Episode Vendor Type Category ATR IDCO Episode Detection Interval Atrial 253 ms IDCO Episode Duration 37 s IDCO Episode Detection And Therapy Details ATR IDCO Episode Identifier ATR-39 IDCO Episode Date Time IDCO Episode Type Category AT/AF IDCO Episode Vendor Type Category ATR IDCO Episode Detection Interval Atrial 255 ms IDCO Episode Duration 17 s IDCO Episode Detection And Therapy Details ATR IDCO Episode Identifier V-35 IDCO Episode Date Time [id number] IDCO Episode Type Category VT IDCO Episode Vendor Type Category NSVT IDCO Episode Type Induced Flag NO IDCO Episode Detection Interval Ventricular 321 ms IDCO Episode Duration 6 s IDCO Episode Detection And Therapy Details NonSustV IDCO Episode Identifier ATR-38 IDCO Episode Date Time [id number] IDCO Episode Type Category AT/AF IDCO Episode [...] E162 IDCO Implantable Pulse Generator Serial Number [id number] IDCO Implantable Pulse Generator Structural Ironworker [place] [employer] IDCO Implantable Pulse Generator Implant Date 20140110 IDCO Implantable Lead Model 4136 IDCO Implantable Lead Serial Number [id number] IDCO Implantable Lead Structural Ironworker Guidant IDCO Implantable Lead Implant Date 20130421 IDCO Implantable Lead Polarity Type Bipolar Lead IDCO Implantable Lead Location Right Atrium IDCO Implantable Lead Model 0292 IDCO Implantable Lead Serial Number [id number] IDCO Implantable Lead Structural Ironworker [place] [employer] IDCO Implantable Lead Implant Date IDCO [...] IDCO Lead Channel Pacing Threshold Measurement Method Right Of Way Man Manual IDCO Lead Channel Pacing Threshold Polarity [...] IDCO Lead Channel Pacing Threshold Measurement Method Right Of Way Man Manual IDCO Lead Channel Pacing Threshold Polarity [...] filedocumented in this encounter Care Teams Senior Outside Sales Representative Relationship Specialty Start Date End Date Ángel Bingham MD [facility] [address] [place] [address] PCP - General 01/31/14 09/01/16 documented as of this encounter
--- OUTSIDE RECORDS SUMMARY | 2024-05-24 14:30 | XMS_ITS | Encounter Summary ---
[place] [address] Care Team Providers Care Registry Np Name Role Phone Ángel Bingham MD Primary Care Provider [phone] Reason for Visit * Reason Onset Date Comments Medication Management 2015 Encounter Details Date Type Department Care Team (Late st Contact Info) Description 2015 Telephone Cardiology at [address] [phone] Rosanna Morrow, retail stocker Management Social History Tobacco Use Types Packs/Day [...] AM EST Hospital Encounter [place] [address] Arrived 08/09/2024 10:00 AM EDT Hospital Encounter [place] [address] Arrived documented as of this encounter Visit Diagnoses Not on filedocumented in this encounter Care Teams Registry Np Relationship Specialty Start Date End Date Ángel Bingham MD [facility] [address] [facility] [place] [address] PCP - General 01/31/14 09/01/16 documented as of this encounter
--- OUTSIDE RECORDS SUMMARY | 2024-05-24 14:31 | XMS_ITS | Encounter Summary ---
Author Organization [facility] [place] [address] Care Team Providers Care Corporate Representative Name Role Phone Ángel Bingham MD Primary Care Provider [phone] Encounter Details Date Type Department Care Team (Late st Contact Info) Description 07/18/2014 Orders Only Cardiology at [address] [address] Social History Tobacco Use Types Packs/Day Years [...] AM EST Hospital Encounter [place] [address] Arrived 08/09/2024 10:00 AM EDT Hospital Encounter [place] [address] Arrived documented as of this encounter Procedures [...] E162 IDCO Implantable Pulse Generator Serial Number [id number] IDCO Implantable Pulse Generator Chenille Machine Operator [place] [employer] IDCO Implantable Pulse Generator Implant Date 20140110 IDCO Implantable Lead Model 4136 IDCO Implantable Lead Serial Number [id number] IDCO Implantable Lead Chenille Machine Operator Guiddelio IDCO Implantable Lead Implant Date 20130421 IDCO Implantable Lead Polarity Type Bipolar Lead IDCO Implantable Lead Location Right Atrium IDCO Implantable Lead Model 0292 IDCO Implantable Lead Serial Number [id number] IDCO Implantable Lead [place] Machine Operator [place] [employer] IDCO Implantable Lead Implant Date IDCO Implantable Lead Location Right Ventricle IDCO Lead Channel Measurements Date and Time Start 20140718 IDCO Lead Channel Sensing Intrinsic Amplitude Mean 5.2 mV IDCO Lead Channel Sensing Polarity Bipolar IDCO Lead Channel Pacing Threshold Amplitude 0.6 V IDCO Lead Channel Pacing Threshold Pulse Width 0.5 ms IDCO Lead Channel Pacing Threshold Measurement Method Body Art Technician Manual IDCO Lead Channel Pacing Threshold [...] Lead Channel Pacing Threshold Measurement Method Body Art Technician Manual IDCO Lead Channel Pacing Threshold [...] End 20140717 IDCO Atrial Tachy Statistic AT/AF [place] Percent 1 % IDCO Therapy Statistic Recent [...] filedocumented in this encounter Care Teams Corporate Representative Relationship Specialty Start Date End Date Ángel Bingham MD [facility] [address] [place] [address] PCP - General 01/31/14 09/01/16 documented as of this encounter
--- OUTSIDE RECORDS SUMMARY | 2024-05-24 14:31 | XMS_ITS | Encounter Summary ---
Author Organization [facility] Address [facility] [place] [address] Care Team Providers Care Health Program Specialist Name Role Phone Ángel Bingham MD Primary Care Provider [phone] Encounter Details Date Type Department Care Team (Latest Contact Info) Description 04/17/2014 8:22 AM EST - 04/17/2014 11:59 PM [facility] Hospital [place] [phone] José Manuel Fabian MD [facility] [place] [address] Discharge Disposition: Home Social History Tobacco Use [...] times daily. 90 tablet 6 05/14/2013 01/27/2017 [place]-3 Fatty Acids (FISH OIL) 500 mg Cap Take by mouth daily. 01/14/2016 lamotrigine (LAMICTAL) 100 mg tablet Take 200 mg by mouth daily. 09/01/2018 alprazolam (XANAX XR) 3 mg 24 hr tablet Take 3 mg by mouth nightly. 09/18/2020 [facility] cmb #[id number] (PROBIOTIC & ACIDOPHILUS) 300-250 million cell-mg Cap [...] AM EST Hospital Encounter Non-[place] [address] Arrived 08/09/2024 10:00 AM EDT Hospital Encounter Non-[place] [address] Arrived documented as of this encounter Procedures [...] José Manuel Fabian MD HEMATOLOGY ORDERABLE S CERDELMAR BENITEZIUM * Hemogram (04/17/2014 8:29 AM EST) White [...] of variation 13.7 10.9 - 14.4 % MONICA ROSEENNIUM Mean Platelet Volume 9.5 9.0 - 12.0 fL MONICA ROSEENNIUM Blood specimen (specimen) 04/17/2014 8:29 AM EST 04/17/2014 8:48 AM EST Narrative Resulting Agency Comment Spec In Lab José Manuel Fabian MD HEMATOLOGY ORDERABLE S MONICA BENITEZIUM * (ABNORMAL) BMP w/fasting Glucose (04/17/2014 8:29 AM EST) Glucose Fasting 183(H) 65 - 99 mg/dL CERDELMAR MILLENNIUM Comment: ?Fasting* Glucose Interpretive Criteria Normal [...] of Diabetes Mellitus, Position Statement from the [place] [employer]. ??Diabetes Care, Volume 33, Supplement 1, Apr 2009 Blood Urea Nitrogen 19 10 - 20 mg/dL [facility] Creatinine 1.02 0.80 - 1.50 mg/dL [facility] Comment: Please note that the pediatric [...] the following links into your internet browser. [email or web address] Blood specimen (specimen) 04/17/2014 8:29 AM EST 04/17/2014 8:48 AM EST Narrative Resulting Agency Comment Spec In Lab José Manuel Fabian MD CHEMISTRY ORDERABLES Performing Organization Address City/[facility] Co de Phone Number MONICA ROSEENNIUM * Prothrombin Time (04/17/2014 8:29 AM EST) Prothrombin Time 14.4 12.5 - 15.5 sec CERNER MILLENNIUM Comment: [facility] Transfusion Committee Guidelines: INR less than 2.0, PTT less than OR equal to 43.5 seconds, or Fibrinogen greater than or equal to 100 mg/dl indicate adequate procoagulant activity for hemostasis in patients without underlying bleeding disorders. International Normalization Ratio 1.0 0.9 - 1.1 CERNER MILLENNIUM Blood specimen (specimen) 04/17/2014 8:29 AM EST 04/17/2014 8:48 AM EST Narrative Resulting Agency Comment Spec In Lab José Manuel Fabian MD HEMATOLOGY ORDERABLE S Performing Organization Address City/[facility] Co de Phone Number MONICA PERALTA documented in this encounter Visit Diagnoses Not on filedocumented in this encounter Care Teams Health Program Specialist Relationship Specialty Start Date End Date Ángel Bingham MD [facility] [address] [facility] [place] [address] PCP - General 01/31/14 09/01/16 documented as of this encounter
--- OUTSIDE RECORDS SUMMARY | 2024-05-24 14:31 | XMS_ITS | Encounter Summary ---
[facility] [place] [address] Care Team Providers Care Director Of Special Education Name Role Phone Ángel Bingham MD Primary Care Provider [phone] Encounter Details Date Type Department Care Team (Late st Contact Info) Description 08/17/2014 Orders Only Cardiology at [address] [address] Social History Tobacco Use Types Packs/Day Years [...] AM EST Hospital Encounter [place] [address] Arrived 08/09/2024 10:00 AM EDT Hospital Encounter [place] [address] Arrived documented as of this encounter Procedures Procedure Name Priority Date/Time Associated Diagnosis Comments CARDIAC DEVICE CHECK - REMOTE PATIENT INITIATED Routine 08/17/2014 6:45 AM EDT documented in this encounter Results * (ABNORMAL) Cardiac device check - Remote Patient Initiated (08/17/2014 6:45 AM EDT) Date Time Interrogation Session [id number] IDCO Type Interrogation Session Remote Patient Initiated IDCO Clinic Name [facility]erry Carpio [facility] IDCO Battery Date Time of Measurements [id number] IDCO Battery Status Beginning of Service IDCO Battery Remaining Longevity 126 mo IDCO Battery Remaining Percentage 100 % IDCO Capacitor Last Charge Date Time [id number] IDCO Capacitor Charge Time 9.9 s IDCO Capacitor Charge Type Reformation IDCO Episode Identifier APM-7 IDCO Episode Date Time [id number] IDCO Episode Type Category Periodic EGM IDCO [...] E162 IDCO Implantable Pulse Generator Serial Number [id number] IDCO Implantable Pulse Generator Dramatic Teacher [place] [employer] IDCO Implantable Pulse Generator Implant Date 20140110 IDCO Implantable Lead Model 4136 IDCO Implantable Lead Serial Number [id number] IDCO Implantable Lead Dramatic Teacher Guidant IDCO Implantable Lead Implant Date 20130421 IDCO Implantable Lead Polarity Type Bipolar Lead IDCO Implantable Lead Location Right Atrium IDCO Implantable Lead Model 0292 IDCO Implantable Lead Serial Number [id number] IDCO Implantable Lead Dramatic Teacher [place] [employer] IDCO Implantable Lead Implant Date [...] IDCO Lead Channel Pacing Threshold Measurement Method Burner Machine Operator Manual IDCO Lead Channel Pacing [...] IDCO Lead Channel Pacing Threshold Measurement Method Burner Machine Operator Manual IDCO Lead Channel Pacing [...] filedocumented in this encounter Care Teams Director Of Special Education Relationship Specialty Start Date End Date Ángel Bingham MD [facility] [address] [place] [address] PCP - General 01/31/14 09/01/16 documented as of this encounter
--- OUTSIDE RECORDS SUMMARY | 2024-05-24 14:31 | XMS_ITS | Encounter Summary ---
Author Organization [facility] Address [facility] [place] [address] Care Team Providers Care Block Bolter Mule Operator Name Role Phone Ángel Bingham MD Primary Care Provider [phone] Reason for Visit * Reason Comments Pacemaker Problem Encounter Details Date Type Department Care Team (Late st Contact Info) Description 04/10/2014 10:40 AM EST Follow-Up Cardiology at [address] [phone] Edy Torres PA [facility] [place] [address] Atrial pacemaker lead displacement, initial encounter Discharge [...] coordinate schedule: Please call EP scheduling at [phone] documented in this encounter Progress Notes * Edy Torres PA - 04/10/2014 11:04 AM EST Images from the original note were not included. Subjective: Patient ID: Marquez Hendrix is a 63 y.o. male. HPI Asked by Raul Lopes RN to evaluate Mr Hendrix who presented for ICD follow up after 01/10/2014 dualchamber [employer] ICD implant and was found to [...] 2 times daily. 90 tablet 6 ??? [place]-3 Fatty Acids (FISH OIL) 500 mg [...] mouth every morning. ? ? lactobac cmb #[id number] (PROBIOTIC & ACIDOPHILUS) 300-250 million cell- mg [...] diaphoretic. Vitals reviewed. Device Data: Ventricular electrode: [employer] [place] Model# 0292 Serial# [id number] ?? Bipolar, steroid-tipped, active-fixation, single coil DF-4 lead ?? Access: Left axillary vein ?? Location: RV apex Atrial electrode: [employer] Dextrus Model# 4136 Serial# [id number] ?? Bipolar, steroid-tipped, active-fixation IS-1 lead ?? Access: Left axillary vein ?? Location Right atrial appendage Pulse generator: [employer] Incepta Model# E162 Serial# [id number] DDDR ICD ?? Location: Subcutaneous Defibrillation testing [...] without the operation Provider: MAXIMO Leija Provider#: [id number] Consult attending physician: Vamshi Hernandez MD documented in this encounter H&P Notes * Edy Torres PA - 04/10/2014 11:28 AM EST See progress note. documented in this encounter Plan of Treatment Upcoming Encounters Date Type Department Care Team (Late st Contact Info) Description 06/15/2024 10:00 AM EST Hospital Encounter [place] [address] Arrived 08/09/2024 10:00 AM EDT Hospital Encounter Non-[place] [address] Arrived documented as of this encounter Visit Diagnoses Diagnosis Atrial pacemaker lead displacement, initial encounter documented in this encounter Care Teams Block Bolter Mule Operator Relationship Specialty Start Date End Date Ángel Bingham MD [facility] [address] [place] [address] PCP - General 01/31/14 09/01/16 documented as of this encounter
--- OUTSIDE RECORDS SUMMARY | 2024-05-24 14:31 | XMS_ITS | Encounter Summary ---
Author Organization [facility] [place] [address] Care Team Providers Care Plate And Weld Inspector Name Role Phone Ángel Bingham MD Primary Care Provider [phone] Encounter Details Date Type Department Care Team (Late st Contact Info) Description 09/15/2014 Orders Only Cardiology at [address] [address] Social History Tobacco Use Types Packs/Day Years [...] Hospital Encounter [place] [address] Arrived 08/09/2024 10:00 AM EDT Hospital Encounter [place] [address] Arrived documented as of this encounter Procedures Procedure Name Priority Date/Time Associated Diagnosis Comments CARDIAC DEVICE CHECK - REMOTE PATIENT INITIATED Routine 09/15/2014 5:22 AM EDT documented in this encounter Results * Cardiac device check - Remote Patient Initiated (09/15/2014 5:22 AM EDT) Date Time Interrogation Session [id number] IDCO Type Interrogation Session Remote Patient Initiated IDCO Clinic Name [facility] Carpio [facility] IDCO Battery Date Time of Measurements [id number] IDCO Battery Status Beginning of Service IDCO Battery Remaining Longevity 126 mo IDCO Battery Remaining Percentage 100 % IDCO Capacitor Last Charge Date Time IDCO Capacitor Charge Time 9.9 s IDCO Capacitor Charge Type Reformation IDCO Episode Identifier APM-9 IDCO Episode Date Time [id number] IDCO Episode Type Category Periodic EGM IDCO [...] Statistic Recent Date Time End [id number] IDCO [place] Setting AT Mode Switch Mode VDIR IDCO [...] E162 IDCO Implantable Pulse Generator Serial Number [id number] IDCO Implantable Pulse Generator Employee Adviser [place] [employer] IDCO Implantable Pulse Generator Implant Date 20140110 IDCO Implantable Lead Model 4136 IDCO Implantable Lead Serial Number [id number] IDCO Implantable Lead Employee Adviser Guidant IDCO Implantable Lead Implant Date 20130421 IDCO Implantable Lead Polarity Type Bipolar Lead IDCO Implantable Lead Location Right Atrium IDCO Implantable Lead Model 0292 IDCO Implantable Lead Serial Number [id number] IDCO Implantable Lead Employee Adviser [place] [employer] IDCO Implantable Lead Implant Date IDCO [...] IDCO Lead Channel Pacing Threshold Measurement Method Chocolate Temperer Manual IDCO Lead Channel Pacing Threshold Polarity [...] IDCO Lead Channel Pacing Threshold Measurement Method Chocolate Temperer Manual IDCO Lead Channel Pacing Threshold Polarity [...] on filedocumented in this encounter Care Teams Plate And Weld Inspector Relationship Specialty Start Date End Date Ángel Bingham MD [facility] [address] [place] [address] PCP - General 01/31/14 09/01/16 documented as of this encounter
--- OUTSIDE RECORDS SUMMARY | 2024-05-24 14:31 | XMS_ITS | Encounter Summary ---
Author Organization [facility] [place] [address] Care Team Providers Care Shelving Supervisor Name Role Phone Ángel Bingham MD Primary Care Provider [phone] Encounter Details Date Type Department Care Team (Late st Contact Info) Description 08/17/2014 Orders Only Cardiology at [address] [address] Social History Tobacco Use Types Packs/Day Years [...] AM EST Hospital Encounter [place] [address] Arrived 08/09/2024 10:00 AM EDT Hospital Encounter [place] [address] Arrived documented as of this encounter Procedures Procedure Name Priority Date/Time Associated Diagnosis Comments CARDIAC DEVICE CHECK - REMOTE PATIENT INITIATED Routine 08/17/2014 6:30 AM EDT documented in this encounter Results * (ABNORMAL) Cardiac device check - Remote Patient Initiated (08/17/2014 6:30 AM EDT) Date Time Interrogation Session [id number] IDCO Type Interrogation Session Remote Patient Initiated IDCO Clinic Name [facility] IDCO Battery Date Time of Measurements [id number] IDCO Battery Status Beginning of Service IDCO Battery Remaining Longevity 126 mo IDCO Battery Remaining Percentage 100 % IDCO Capacitor Last Charge Date Time [id number] IDCO Capacitor Charge Time 9.9 s IDCO Capacitor Charge Type Reformation IDCO Episode Identifier APM-6 IDCO Episode Date Time [id number] IDCO Episode Type Category Periodic EGM IDCO Episode Vendor Type Category APMRT IDCO Episode Detection And Therapy Details Presenting EGM IDCO Episode Identifier [id number] IDCO Episode Date Time [id number] IDCO Episode Type Category Other IDCO Episode Vendor Type Category XANDER IDCO Episode Detection Interval Ventricular 938 ms IDCO Episode Duration 56 s IDCO Episode Detection And Therapy Details IDCO Episode Identifier IDCO Episode Date Time [id number] IDCO Episode Type Category Other IDCO Episode Vendor Type Category XANDER IDCO Episode Detection Interval Ventricular 923 ms IDCO Episode Duration 56 s IDCO Episode Detection And Therapy Details IDCO Episode Identifier IDCO Episode Date Time [id number] IDCO Episode Type Category Other IDCO Episode Vendor Type Category XANDER IDCO Episode Detection Interval Ventricular 923 ms IDCO Episode Duration 55 s IDCO Episode Detection And Therapy Details IDCO Episode Identifier IDCO Episode Date Time [id number] IDCO Episode Type Category Other IDCO Episode Vendor Type Category XANDER IDCO Episode Detection Interval Ventricular 1,000 ms IDCO Episode Duration 59 s IDCO Episode Detection And Therapy Details IDCO Episode Identifier IDCO Episode Date Time [id number] IDCO Episode Type Category Other IDCO Episode Vendor Type Category XANDER IDCO Episode Detection Interval Ventricular 1,071 ms IDCO Episode Duration 56 s IDCO Episode Detection And Therapy Details IDCO Episode Identifier [id number] IDCO Episode Date Time [id number] IDCO Episode Type Category Other IDCO Episode Vendor Type Category XANDER IDCO Episode Detection Interval Ventricular 938 ms IDCO Episode Duration 53 s IDCO Episode Detection And Therapy Details Q IDCO Episode Identifier WAQ IDCO Episode Date Time IDCO Episode Type Category Other IDCO Episode Vendor Type Category XANDER IDCO Episode Detection Interval Ventricular 938 ms IDCO Episode Duration 54 s IDCO Episode Detection And Therapy Details IDCO Episode Identifier [facility] IDCO Episode Date Time IDCO Episode Type Category Other IDCO Episode Vendor Type Category XANDER IDCO Episode Detection Interval Ventricular 923 ms IDCO Episode Duration 56 s IDCO Episode Detection And Therapy Details IDCO Episode Identifier WA IDCO Episode Date Time IDCO Episode Type Category Other IDCO Episode Vendor Type Category XANDER IDCO Episode Detection Interval Ventricular 938 ms IDCO Episode Duration 56 s IDCO Episode Detection And Therapy Details IDCO Episode Identifier WA IDCO Episode Date Time IDCO Episode Type Category Other IDCO Episode Vendor Type Category XANDER IDCO Episode Detection Interval Ventricular 909 ms IDCO Episode Duration 53 s IDCO Episode Detection And Therapy Details IDCO Episode Identifier ATR-14 IDCO Episode Date Time IDCO Episode Type Category AT/AF IDCO Episode Vendor Type Category ATR IDCO Episode Detection Interval Atrial 242 ms IDCO Episode Duration 7,379 s IDCO Episode Detection And Therapy Details ATR IDCO Episode Identifier V-4 IDCO Episode Date Time [id number] IDCO Episode Type Category VT IDCO Episode Vendor Type Category NSVT IDCO Episode Type Induced Flag NO IDCO Episode Detection Interval Ventricular 317 ms IDCO Episode Duration 6 s IDCO Episode Detection And Therapy Details NonSustV IDCO Episode Identifier ATR-13 IDCO Episode Date Time [id number] IDCO Episode Type Category AT/AF IDCO Episode Vendor Type Category ATR IDCO Episode Detection Interval Atrial 923 ms IDCO Episode Duration 1 s IDCO Episode Detection And Therapy Details ATR IDCO Episode Identifier ATR-12 IDCO Episode Date Time [id number] IDCO Episode Type Category AT/AF IDCO Episode Vendor Type Category ATR IDCO Episode Detection Interval Atrial 258 ms IDCO Episode Duration 16,842 s IDCO Episode Detection And Therapy Details ATR IDCO Episode Identifier ATR-11 IDCO Episode Date Time [id number] IDCO Episode Type Category AT/AF IDCO Episode [...] E162 IDCO Implantable Pulse Generator Serial Number [id number] IDCO Implantable Pulse Generator Line Controller [employer] IDCO Implantable Pulse Generator Implant Date 20140110 IDCO Implantable Lead Model 4136 IDCO Implantable Lead Serial Number [id number] IDCO Implantable Lead Line Controller Guidant IDCO Implantable Lead Implant Date 20130421 IDCO Implantable Lead Polarity Type Bipolar Lead IDCO Implantable Lead Location Right Atrium IDCO Implantable Lead Model 0292 IDCO Implantable Lead Serial Number [id number] IDCO Implantable Lead Line Controller [place] [employer] IDCO Implantable Lead Implant Date [...] Lead Channel Pacing Threshold Measurement Method Insurance Claim Representative Manual IDCO Lead Channel Pacing Threshold [...] Lead Channel Pacing Threshold Measurement Method Insurance Claim Representative Manual IDCO Lead Channel Pacing Threshold [...] on filedocumented in this encounter Care Teams Shelving Supervisor Relationship Specialty Start Date End Date Ángel Bingham MD [facility] [address] [place] [address] PCP - General 01/31/14 09/01/16 documented as of this encounter
--- OUTSIDE RECORDS SUMMARY | 2024-05-24 14:31 | XMS_ITS | Encounter Summary ---
Author Organization [facility] [place] [address] Care Team Providers Care Unionmelt Operator Name Role Phone Ángel Bingham MD Primary Care Provider [phone] Encounter Details Date Type Department Care Team (Late st Contact Info) Description 07/18/2014 Orders Only Cardiology at [address] [address] Social History Tobacco Use Types Packs/Day Years [...] AM EST Hospital Encounter [place] [address] Arrived 08/09/2024 10:00 AM EDT Hospital Encounter [place] [address] Arrived documented as of this encounter Procedures Procedure Name Priority Date/Time Associated Diagnosis Comments CARDIAC DEVICE CHECK - REMOTE SCHEDULED Routine 07/18/2014 12:41 AM EDT documented in this encounter Results * Cardiac device check - Remote Scheduled (07/18/2014 12:41 AM EDT) Date Time Interrogation Session [id number] IDCO Type Interrogation Session Remote Scheduled IDCO [facility] IDCO Battery Date Time of Measurements [id number] IDCO Battery Status Beginning of Service IDCO Battery Remaining Longevity 126 mo IDCO Battery Remaining Percentage 100 % IDCO Capacitor Last Charge Date Time [id number] IDCO Capacitor Charge Time 9.9 s IDCO Capacitor Charge Type Reformation IDCO Episode Identifier APM-4 IDCO Episode Date Time [id number] IDCO Episode Type Category Periodic EGM IDCO Episode Vendor Type Category APMRT IDCO Episode Detection And Therapy Details Presenting EGM IDCO Episode Identifier Q-93 IDCO Episode Date Time [id number] IDCO Episode Type Category Other IDCO Episode Vendor Type Category XANDER IDCO Episode Detection Interval Ventricular 1,053 ms IDCO Episode Duration 63 s IDCO Episode Detection And Therapy Details IDCO Episode Identifier IDCO Episode Date Time [id number] IDCO Episode Type Category Other IDCO Episode Vendor Type Category XANDER IDCO Episode Detection Interval Ventricular 1,000 ms IDCO Episode Duration 60 s IDCO Episode Detection And Therapy Details IDCO Episode Identifier IDCO Episode Date Time [id number] IDCO Episode Type Category Other IDCO Episode Vendor Type Category XANDER IDCO Episode Detection Interval Ventricular 1,000 ms IDCO Episode Duration 60 s IDCO Episode Detection And Therapy Details IDCO Episode Identifier 90 IDCO Episode Date Time [id number] IDCO Episode Type Category Other IDCO Episode Vendor Type Category XANDER IDCO Episode Detection Interval Ventricular 952 ms IDCO Episode Duration 57 s IDCO Episode Detection And Therapy Details IDCO Episode Identifier IDCO Episode Date Time [id number] IDCO Episode Type Category Other IDCO Episode Vendor Type Category XANDER IDCO Episode Detection Interval Ventricular 968 ms IDCO Episode Duration 58 s IDCO Episode Detection And Therapy Details IDCO Episode Identifier 35 IDCO Episode Date Time [id number] IDCO Episode Type Category Other IDCO Episode Vendor Type Category XANDER IDCO Episode Detection Interval Ventricular 1,091 ms IDCO Episode Duration 53 s IDCO Episode Detection And Therapy Details [facility] ID[id number] ID[facility] Episode Date Time [id number] IDCO Episode Type Category Other IDCO Episode Vendor Type Category XANDER IDCO Episode Detection Interval Ventricular 1,071 ms IDCO Episode Duration 44 s IDCO Episode Detection And Therapy Details [facility] IDCO Episode Identifier [id number] IDCO Episode Date Time [id number] IDCO Episode Type Category Other IDCO Episode Vendor Type Category XANDER IDCO Episode Detection Interval Ventricular 1,053 ms IDCO Episode Duration 63 s IDCO Episode Detection And Therapy Details [facility] IDCO Episode Identifier [facility] IDCO Episode Date Time [id number] IDCO Episode Type Category Other IDCO Episode Vendor Type Category XANDER IDCO Episode Detection Interval Ventricular 1,053 ms IDCO Episode Duration 56 s IDCO Episode Detection And Therapy Details [facility] IDCO Episode Identifier [id number] IDCO Episode Date Time [id number] IDCO Episode Type Category Other IDCO Episode Vendor Type Category XANDER IDCO Episode Detection Interval Ventricular 822 ms IDCO Episode Duration 49 s IDCO Episode Detection And Therapy Details IDCO Episode Identifier ATR-10 IDCO Episode Date Time [id number] IDCO Episode Type Category AT/AF IDCO Episode Vendor Type Category ATR IDCO Episode Detection Interval Atrial 224 ms IDCO Episode Duration 77,575 s IDCO Episode Detection And Therapy Details ATR IDCO Episode Identifier ATR-9 IDCO Episode Date Time [id number] IDCO Episode Type Category AT/AF IDCO Episode Vendor Type Category ATR IDCO Episode Detection Interval Atrial 284 ms IDCO Episode Duration 9 s IDCO Episode Detection And Therapy Details ATR IDCO Episode Identifier ATR-8 IDCO Episode Date Time [id number] IDCO Episode Type Category AT/AF IDCO Episode Vendor Type Category ATR IDCO Episode Detection Interval Atrial 385 ms IDCO Episode Duration 6 s IDCO Episode Detection And Therapy Details ATR IDCO Episode Identifier ATR-7 IDCO Episode Date Time [id number] IDCO Episode Type Category AT/AF IDCO Episode Vendor Type Category ATR IDCO Episode Detection Interval Atrial 833 ms IDCO Episode Duration 1 s IDCO Episode Detection And Therapy Details ATR IDCO Episode Identifier ATR-6 IDCO Episode Date Time [id number] IDCO Episode Type Category AT/AF IDCO Episode Vendor Type Category ATR IDCO Episode Detection Interval Atrial 261 ms IDCO Episode Duration 11 s IDCO Episode Detection And Therapy Details ATR IDCO Episode Identifier V-3 IDCO Episode Date Time [id number] IDCO Episode Type Category VT IDCO Episode Vendor Type Category NSVT IDCO Episode Type Induced Flag NO IDCO Episode Detection Interval Ventricular 331 ms IDCO Episode Duration 6 s IDCO Episode Detection And Therapy Details NonSustV IDCO Episode Identifier ATR-5 IDCO Episode Date Time [id number] IDCO Episode Type Category AT/AF IDCO Episode Vendor Type Category ATR IDCO Episode Detection Interval Atrial 237 ms IDCO Episode Duration 43 s IDCO Episode Detection And Therapy Details ATR IDCO Episode Identifier ATR-4 IDCO Episode Date Time [id number] IDCO Episode Type Category AT/AF IDCO Episode Vendor Type Category ATR IDCO Episode Detection Interval Atrial 273 ms IDCO Episode Duration 15 s IDCO Episode Detection And Therapy Details ATR IDCO Episode Identifier ATR-3 IDCO Episode Date Time [id number] IDCO Episode Type Category AT/AF IDCO Episode Vendor Type Category ATR IDCO Episode Detection Interval Atrial 196 ms IDCO Episode Duration 6,757 s IDCO Episode Detection And Therapy Details ATR IDCO Episode Identifier ATR-2 IDCO Episode Date Time [id number] IDCO Episode Type Category AT/AF IDCO Episode [...] E162 IDCO Implantable Pulse Generator Serial Number [id number] IDCO Implantable Pulse Generator Distributor Of Directories [employer] IDCO Implantable Pulse Generator Implant Date 20140110 IDCO Implantable Lead Model 4136 IDCO Implantable Lead Serial Number [id number] IDCO Implantable Lead Distributor Of Directories Guidant IDCO Implantable Lead Implant Date 20130421 IDCO Implantable Lead Polarity Type Bipolar Lead IDCO Implantable Lead Location Right Atrium IDCO Implantable Lead Model 0292 IDCO Implantable Lead Serial Number [id number] IDCO Implantable Lead Distributor Of Directories [employer] IDCO Implantable Lead Implant Date IDCO [...] IDCO Lead Channel Pacing Threshold Measurement Method Piping Designer Manual IDCO Lead Channel Pacing Threshold [...] IDCO Lead Channel Pacing Threshold Measurement Method Piping Designer Manual IDCO Lead Channel Pacing Threshold [...] on filedocumented in this encounter Care Teams Unionmelt Operator Relationship Specialty Start Date End Date Ángel Bingham MD [facility] [address] [facility] [place] [address] PCP - General 01/31/14 09/01/16 documented as of this encounter
--- OUTSIDE RECORDS SUMMARY | 2024-05-24 14:31 | XMS_ITS | Encounter Summary ---
Author Organization [facility] [place] [address] Care Team Providers Care Respiratory Medicine Physician Name Role Phone Ángel Bingham MD Primary Care Provider [phone] Encounter Details Date Type Department Care Team (Late st Contact Info) Description 09/15/2014 Orders Only Cardiology at [address] [address] Social History Tobacco Use Types Packs/Day Years [...] AM EST Hospital Encounter [place] [address] Arrived 08/09/2024 10:00 AM EDT Hospital Encounter [place] [address] Arrived documented as of this encounter Procedures Procedure Name Priority Date/Time Associated Diagnosis Comments CARDIAC DEVICE CHECK - REMOTE PATIENT INITIATED Routine 09/15/2014 5:17 AM EDT documented in this encounter Results * Cardiac device check - Remote Patient Initiated (09/15/2014 5:17 AM EDT) Date Time Interrogation Session [id number] IDCO Type Interrogation Session Remote Patient Initiated [facility] IDCO Battery Date Time of Measurements [id number] IDCO Battery Status Beginning of Service IDCO Battery Remaining Longevity 126 mo IDCO Battery Remaining Percentage 100 % IDCO Capacitor Last Charge Date Time [id number] IDCO Capacitor Charge Time 9.9 s IDCO Capacitor Charge Type Reformation IDCO Episode Identifier APM-8 IDCO Episode Date Time [id number] IDCO Episode Type Category Periodic EGM IDCO Episode Vendor Type Category APMRT IDCO Episode Detection And Therapy Details Presenting EGM IDCO Episode Identifier [id number] IDCO Episode Date Time [id number] IDCO Episode Type Category Other IDCO Episode Vendor Type Category XANDER IDCO Episode Detection Interval Ventricular 1,053 ms IDCO Episode Duration 63 s IDCO Episode Detection And Therapy Details IDCO Episode Identifier IDCO Episode Date Time [id number] IDCO Episode Type Category Other IDCO Episode Vendor Type Category XANDER IDCO Episode Detection Interval Ventricular 1,000 ms IDCO Episode Duration 60 s IDCO Episode Detection And Therapy Details IDCO Episode Identifier IDCO Episode Date Time [id number] IDCO Episode Type Category Other IDCO Episode [...] Detection And Therapy Details IDCO Episode Identifier Q-9209 IDCO Episode Date Time IDCO Episode Type [...] Detection And Therapy Details IDCO Episode Identifier ATR-17 IDCO Episode Date [...] E162 IDCO Implantable Pulse Generator Serial Number [id number] IDCO Implantable Pulse Generator Soap Slabber [place] [employer] IDCO Implantable Pulse Generator Implant Date 20140110 IDCO Implantable Lead Model 4136 IDCO Implantable Lead Serial Number [id number] IDCO Implantable Lead Soap Slabber Guidant IDCO Implantable Lead Implant Date 20130421 IDCO Implantable Lead Polarity Type Bipolar Lead IDCO Implantable Lead Location Right Atrium IDCO Implantable Lead Model 0292 IDCO Implantable Lead Serial Number [id number] IDCO Implantable Lead Soap Slabber [place] [employer] IDCO Implantable Lead Implant Date IDCO [...] Lead Channel Pacing Threshold Measurement Method Shipping Room Helper Manual IDCO Lead Channel Pacing Threshold [...] Lead Channel Pacing Threshold Measurement Method Shipping Room Helper Manual IDCO Lead Channel Pacing Threshold [...] Albaro Statistic Date Time Start [id number] IDCO [place]abro Statistic Date Time End 20140915 IDCO Albaro Statistic RA Percent Paced 11 % IDCO Albaro Statistic RV Percent Paced 1 % IDCO Anatomical Region Laterality Modality Other 09/15/2014 5:17 AM EDT Physician Cardiology IMPLANTABLE CARD IAC DEVICE documented in this encounter Visit Diagnoses Not on filedocumented in this encounter Care Teams Respiratory Medicine Physician Relationship Specialty Start Date End Date Ángel Bingham MD [facility] [address] [place] [address] PCP - General 01/31/14 09/01/16 documented as of this encounter
--- OUTSIDE RECORDS SUMMARY | 2024-05-24 14:31 | XMS_ITS | Encounter Summary ---
Author Organization [facility] [place] [address] Care Team Providers Care Music Education Adjunct Professor Name Role Phone Ángel Bingham MD Primary Care Provider [phone] Encounter Details Date Type Department Care Team (Late st Contact Info) Description 04/12/2014 Orders Only Cardiology at [address] [phone] Edy Torres, [place] [facility] [place] [address] Pacemaker lead malfunction, subsequent encounter Social History [...] AM EST Hospital Encounter Non-Invasive [place] [address] Arrived 08/09/2024 10:00 AM EDT Hospital Encounter Non-Invasive [place] [address] Arrived documented as of this encounter Procedures [...] ?? Diego Guerrero ??Model# 4126-53 cm Serial# [id number] ? Bipolar, steroid-tipped, active-fixation IS-1 lead ? [...] 10 V: ??No Old Ventricular electrode: ?? Holcomb Exergyn [place] Model# 0292 Serial# [id number] ? Bipolar, steroid-tipped, active-fixation DF-4 lead ? [...] electrode: ?? Diego Guerrero Model# 4136 Serial# [id number] ? Bipolar, steroid-tipped, active-fixation IS-1 lead ? Access: ? Axillary vein ? Location ? Removed 04/17/2014 ? Implanted: ?01/10/2014 Pulse generator: ?? [employer] Incepta Model# E162 Serial# [id number] ?? ? DDDR ICD ? Location: ?Subcutaneous [...] encounter documented in this encounter Care Teams Music Education Adjunct Professor Relationship Specialty Start Date End Date Ángel Bingham MD [facility] [address] [place] [address] PCP - General 01/31/14 09/01/16 documented as of this encounter
--- OUTSIDE RECORDS SUMMARY | 2024-05-24 14:31 | XMS_ITS | Encounter Summary ---
[place] [address] Care Team Providers Care Coal Cutter Name Role Phone Ángel Bingham MD Primary Care Provider [phone] Encounter Details Date Type Department Care Team (Late st Contact Info) Description 04/17/2014 10:30 AM EST - 04/17/2014 1:50 PM EST Surgery [place] [address] Myrna Shepard MD ELECTROPHYSIOLOGY PROCEDURE Social History [...] Marquez Hendrix Patient Age: 63 y.o. Language: Puerto Rican Race: White Ethnicity: Not nor Admit date: 04/17/2014 Discharge date and time: 04/18/2014929 Attending Physician: Myrna Shepard MD Discharge Physician: Jake Shepard MD Follow-up Recommendations for Providers: S/p atrial lead replacement Scheduled for 90 day post implant follow up Inpatient Provider Contact Information: Cardiac Electrophysiology [phone] Discharge Diagnoses (Hospital Problems) and Secondary Diagnoses [...] Treatments: Atrial lead replacement Discharge Exam: Skin: [place], warm and dry HEENT: PERRLA, EOMI, no [...] electrode: Guidant Dextrus Model# 4126-53 cm Serial# [id number] ?? Bipolar, steroid-tipped, active-fixation IS-1 lead ?? Access: Axillary vein ?? Location Right atrial appendage Old Ventricular electrode: Stupil Model# 0292 Serial# [id number] ?? Bipolar, steroid-tipped, active-fixation DF-4 lead ?? Access: Axillary vein ?? Location: Right ventricular apex Old Atrial electrode: Guidant Dextrus Model# 4136 Serial# [id number] ?? Bipolar, steroid-tipped, active-fixation IS-1 lead ?? Access: Axillary vein ?? Location Removed 04/17/2014 ?? Implanted: 01/10/2014 Pulse generator: [employer] Incepta Model# E162 Serial# [id number] ?? DDDR ICD ?? Location: Subcutaneous DDDR [...] Cap Take by mouth daily. Generic drug: [place]-3 Fatty Acids Refills: 0 glipiZIDE 5 mg [...] by mouth daily. Generic drug: lactobac cmb #[id number] Refills: 0 rosuvastatin 20 mg Tab Commonly [...] a 91 day new device check at [facility]. 4. Remote device follow [...] 07/18/2014 10:00 AM Raul Lopes RN Cardiology [phone] 07/18/2014 10:40 AM Kit Self MD Cardiology [phone] Joint Appt [facility] Int[facility] [phone] Discharge References/Attachments None documented in this encounter Discharge Instructions * Patient Instructions* Edy Torres PA - 04/18/2014 7:57 AM EST Final recommendations: 1. Standard post implant discharge instructions (see below): 2. Resume medications as listed. 3. You will be called to schedule a 91 day new device check at [facility]. 4. Remote device follow [...] times daily. 90 tablet 6 05/14/2013 01/27/2017 [place]-3 Fatty Acids (FISH OIL) 500 mg Cap Take by mouth daily. 01/14/2016 lamotrigine (LAMICTAL) 100 mg tablet Take 200 mg by mouth daily. 09/01/2018 alprazolam (XANAX XR) 3 mg 24 hr tablet Take 3 mg by mouth nightly. 09/18/2020 [facility] cmb #[id number] (PROBIOTIC & ACIDOPHILUS) 300-250 million cell-mg Cap [...] AM EST Office of Care Management Clinical Network Associate Patient Name: Marquez Hendrix : 1950, 63 yrs Admission Date: 04/17/2014 1:14 PM Attending: Myrna Shpeard MD Order to Admit: Record reviewed and patient discussed with multidisciplinary team. Insurance: [employer] Exchange Medical/Surgical: Pt admitted for atrial lead [...] electrode: Guidant Dextrus Model# 4126-53 cm Serial# [id number] ?? Bipolar, steroid-tipped, active-fixation IS-1 lead ?? Access: Axillary vein ?? Location Right atrial appendage Old Ventricular electrode: [employer] [place] Model# 0292 Serial# [id number] ?? Bipolar, steroid-tipped, active-fixation DF-4 lead ?? Access: Axillary vein ?? Location: Right ventricular apex Old Atrial electrode: Guidant Dextrus Model# 4136 Serial# [id number] ?? Bipolar, steroid-tipped, active-fixation IS-1 lead ?? Access: Axillary vein ?? Location Removed 04/17/2014 ?? Implanted: 01/10/2014 Pulse generator: [employer] Incepta Model# E162 Serial# [id number] ?? DDDR ICD ?? Location: Subcutaneous DDDR [...] medication given as ordered. Remained on bedside cardiac nurse in SB 55, paced rhythm. Denies chest [...] EVALUATION NOTE: OUTCOME SUMMARY: Patient admitted to [facility] via bed from EP lab. Is [...] AM EST Hospital Encounter Non-[place] [address] Arrived 08/09/2024 10:00 AM EDT Hospital Encounter Non-Invasive [place] [address] Arrived documented as of this encounter Procedures [...] Glucose, POC 140 60 - 199 mg/dL [facility] Comment: Supplemental ranges: <140 mg/dL before meals [...] Glucose, POC 126 60 - 199 mg/dL [facility] Comment: Supplemental ranges: <140 mg/dL before meals <180 mg/dL all other times of the day Blood specimen (specimen) 04/18/2014 3:32 AM EST 04/18/2014 3:32 AM EST Myrna Shepard MD POINT OF CARE TEST ORDERABLES Performing Organization Address [facility] Co de Phone Number [facility] * POCT Glucose (04/18/2014 12:08 AM EST) Glucose, POC 113 60 - 199 mg/dL [facility] Comment: Supplemental ranges: <140 mg/dL before meals <180 mg/dL all other times of the day Blood specimen (specimen) 04/18/2014 12:08 AM EST 04/18/2014 12:08 AM EST Myrna Shepard MD POINT OF CARE TEST ORDERABLES Performing Organization Address [facility] Co de Phone Number [facility] * POCT Glucose (04/17/2014 9:53 PM EST) Glucose, POC 120 60 - 199 mg/dL [facility] Comment: Supplemental ranges: <140 mg/dL before meals <180 mg/dL all other times of the day Blood specimen (specimen) 04/17/2014 9:53 PM EST 04/17/2014 9:53 PM EST Myrna Shepard MD POINT OF CARE TEST ORDERABLES Performing Organization Address [facility] Co de Phone Number [facility] * POCT Glucose (04/17/2014 8:03 PM EST) Glucose, POC 169 60 - 199 mg/dL [facility] Comment: Supplemental ranges: <140 mg/dL before meals <180 mg/dL all other times of the day Blood specimen (specimen) 04/17/2014 8:03 PM EST 04/17/2014 8:03 PM EST Myrna Shepard MD POINT OF CARE TEST ORDERABLES Performing Organization Address City/[facility] Co de Phone Number [facility] * POCT Glucose (04/17/2014 5:23 PM EST) Glucose, POC 155 60 - 199 mg/dL [facility] Comment: Supplemental ranges: <140 mg/dL before meals <180 mg/dL all other times of the day Blood specimen (specimen) 04/17/2014 5:23 PM EST 04/17/2014 5:23 PM EST Myrna Shepard MD POINT OF CARE TEST ORDERABLES Performing Organization Address [facility] Co de Phone Number [facility] * POCT Glucose (04/17/2014 2:11 PM EST) Glucose, POC 130 60 - 199 mg/dL [facility] Comment: Supplemental ranges: <140 mg/dL before meals <180 mg/dL all other times of the day Blood specimen (specimen) 04/17/2014 2:11 PM EST 04/17/2014 2:11 PM EST Myrna Shepard MD POINT OF CARE TEST ORDERABLES Performing Organization Address [facility] Co de Phone Number [facility] * (ABNORMAL) Urinalysis with microscopic (04/17/2014 [...] Urine Dipstick Clear Clear [facility] Specific [place] Urine Automated 1.021 1.002 - 1.030 CERNER [...] Shepard MD URINE ORDERABLES Performing Organization Address [facility] Co de Phone Number [facility] * POCT Glucose (04/17/2014 10:09 AM EST) [facility] Glucose, POC 153 60 - 199 mg/dL [facility] Comment: Supplemental ranges: <140 mg/dL before meals <180 mg/dL all other times of the day Blood specimen (specimen) 04/17/2014 10:09 AM EST 04/17/2014 10:09 AM EST Myrna Shepard MD POINT OF CARE TEST ORDERABLES Performing Organization Address [facility] Co de Phone Number [facility] documented in this encounter Visit Diagnoses Diagnosis [...] to induce or maintain moderate sedation per [facility] Moderate Sedation Protocol, For use in the [...] to induce or maintain moderate sedation per [facility] Moderate Sedation Protocol, For use in the [...] Suspected): Prophylaxis 183 (Given - Provider: Ely Villalpando RN) 0308 (Given - Provider: Tara Thompson RN) [...] Routine 1414 (Given - Provider: Ely Villalpando, RN) 0833 (Given - Provider: Jace Howard, RN) [...] Villalpando RN) 0833 (Given - Provider: Jace Howadr RN) neomycin-polymyxin B (NEOSPORIN) irrigation solution (COMPLETED) [...] to induce or maintain moderate sedation per [facility] Moderate Sedation Protocol, For use in the [...] to induce or maintain moderate sedation per [facility] Moderate Sedation Protocol, For use in the [...] RN) documented in this encounter Care Teams Coal Cutter Relationship Specialty Start Date End Date Ángel Bingham MD [facility] [address] [place] [address] PCP - General 01/31/14 09/01/16 documented as of this encounter
--- OUTSIDE RECORDS SUMMARY | 2024-05-24 14:31 | XMS_ITS | Encounter Summary ---
Author Organization [facility] [place] [address] Care Team Providers Care Staff Weapons Officer Name Role Phone Ángel Bingham MD Primary Care Provider [phone] Reason for Visit * Reason Onset Date Comments Other 07/06/2014 MAP-Possible ass istance ? Encounter Details Date Type Department Care Team (Late Contact Info) Description 07/06/2014 [place] [address] Rafaela Randhawa Other (MAP-Possible assistance ?) Social [...] Pt stated purchased Medicare and Part D plan.[id number] documented in this encounter Plan of Treatment Upcoming Encounters Date Type Department Care Team (Late Contact Info) Description 06/15/2024 10:00 AM EST Hospital Encounter [place] [address] Arrived 08/09/2024 10:00 AM EDT Hospital Encounter [place] [address] Arrived documented as of this encounter Visit Diagnoses Not on filedocumented in this encounter Care Teams Staff Weapons Officer Relationship Specialty Start Date End Date Ángel Bingham MD [facility] [address] [place] [address] PCP - General 01/31/14 09/01/16 documented as of this encounter
--- OUTSIDE RECORDS SUMMARY | 2024-05-24 14:31 | XMS_ITS | Encounter Summary ---
Author Organization [facility] [place] [address] Care Team Providers Care Property And Supply Officer Name Role Phone Ángel Bingham MD Primary Care Provider [phone] Encounter Details Date Type Department Care Team (Latest Contact Info) Description 04/17/2014 1:14 PM EST - 04/18/2014 12:19 PM EST Hospital Encounter [place] [address] José Manuel Fabian MD [facility] [place] [address] Myrna Shepard MD Ventricular tachycardia Discharge Disposition: [...] AM EST Discharge Summary Patient Name: Marquez Hendrxi Patient Age: 63 y.o. Language: Macedonian Race: White Ethnicity: Not nor Admit date: 04/17/2014 Discharge date and time: 04/18/2014929 Attending Physician: Myrna Shepard MD Discharge Physician: Jake Shepard MD Follow-up Recommendations for Providers: S/p atrial lead replacement Scheduled for 90 day post implant follow up Inpatient Provider Contact Information: Cardiac Electrophysiology [phone] Discharge Diagnoses (Hospital Problems) and Secondary Diagnoses [...] Treatments: Atrial lead replacement Discharge Exam: Skin: [place], warm and dry HEENT: PERRLA, EOMI, no [...] electrode: Guidant Dextrus Model# 4126-53 cm Serial# [id number] ?? Bipolar, steroid-tipped, active-fixation IS-1 lead ?? Access: Axillary vein ?? Location Right atrial appendage Old Ventricular electrode: [employer] [place] Model# 0292 Serial# [id number] ?? Bipolar, steroid-tipped, active-fixation DF-4 lead ?? Access: Axillary vein ?? Location: Right ventricular apex Old Atrial electrode: Guiddel[employer] Daigles Model# 4136 Serial# [id number] ?? Bipolar, steroid-tipped, active-fixation IS-1 lead ?? Access: Axillary vein ?? Location Removed 04/17/2014 ?? Implanted: 01/10/2014 Pulse generator: [employer] Incepta Model# E162 Serial# [id number] ?? DDDR ICD ?? Location: Subcutaneous DDDR [...] Cap Take by mouth daily. Generic drug: [place]-3 Fatty Acids Refills: 0 glipiZIDE 5 mg [...] by mouth daily. Generic drug: lactobac cmb #[id number] Refills: 0 rosuvastatin 20 mg Tab Commonly [...] a 91 day new device check at [facility]. 4. Remote device follow [...] 07/18/2014 10:00 AM Raul Lopes RN Cardiology [phone] 07/18/2014 10:40 AM Kit Self MD Cardiology [phone] Joint Appt [facility] Int[facility] [phone] Discharge References/Attachments None documented in this encounter Discharge Instructions * Patient Instructions* Edy Torres PA - 04/18/2014 7:57 AM EST Final recommendations: 1. Standard post implant discharge instructions (see below): 2. Resume medications as listed. 3. You will be called to schedule a 91 day new device check at [facility] EP Device [facility]. 4. Remote device follow [...] times daily. 90 tablet 6 05/14/2013 01/27/2017 [place]-3 Fatty Acids (FISH OIL) 500 mg Cap Take by mouth daily. 01/14/2016 lamotrigine (LAMICTAL) 100 mg tablet Take 200 mg by mouth daily. 09/01/2018 alprazolam (XANAX XR) 3 mg 24 hr tablet Take 3 mg by mouth nightly. 09/18/2020 [id number] (PROBIOTIC & ACIDOPHILUS) 300-250 million cell-mg Cap [...] AM EST Office of Care Management Clinical Picking Machine Operator Helper Patient Name: Marquez Hendrix : 1950, 63 yrs Admission Date: 04/17/2014 1:14 PM Attending: Myrna Shepard MD Order to Admit: Record reviewed and patient discussed with multidisciplinary team. Insurance: [employer] Medical/Surgical: Pt admitted for atrial lead replacement [...] electrode: Guidant Dextrus Model# 4126-53 cm Serial# [id number] ?? Bipolar, steroid-tipped, active-fixation IS-1 lead ?? Access: Axillary vein ?? Location Right atrial appendage Old Ventricular electrode: [employer] [place] Model# 0292 Serial# [id number] ?? Bipolar, steroid-tipped, active-fixation DF-4 lead ?? Access: Axillary vein ?? Location: Right ventricular apex Old Atrial electrode: Guidant Dextrus Model# 4136 Serial# [id number] ?? Bipolar, steroid-tipped, active-fixation IS-1 lead ?? Access: Axillary vein ?? Location Removed 04/17/2014 ?? Implanted: 01/10/2014 Pulse generator: [employer] Incepta Model# E162 Serial# [id number] ?? DDDR ICD ?? Location: Subcutaneous DDDR [...] -- -- * Plan of Care - aTra Thompson RN - 04/18/2014 5:16 AM EST [...] medication given as ordered. Remained on bedside cloth shearer in SB 55, paced rhythm. Denies chest [...] EVALUATION NOTE: OUTCOME SUMMARY: Patient admitted to [facility] via bed from EP lab. Is alert [...] EST Hospital Encounter Non-Invasive [place] [address] Arrived 08/09/2024 10:00 AM EDT Hospital Encounter Non-Invasive [place] [address] Arrived documented as of this encounter Procedures [...] * POCT Glucose (04/18/2014 7:55 AM EST) [facility] Signature Glucose, POC 140 60 - 199 mg/dL [facility] Comment: [...] Glucose, POC 126 60 - 199 mg/dL [facility] Comment: Supplemental ranges: <140 mg/dL before meals <180 mg/dL all other times of the day Blood specimen (specimen) 04/18/2014 3:32 AM EST 04/18/2014 3:32 AM EST Myrna Shepard MD POINT OF CARE TEST ORDERABLES Performing Organization Address [facility] de Phone Number [facility] * POCT Glucose (04/18/2014 12:08 AM EST) Glucose, POC 113 60 - 199 mg/dL [facility] Comment: Supplemental ranges: <140 mg/dL before meals <180 mg/dL all other times of the day Blood specimen (specimen) 04/18/2014 12:08 AM EST 04/18/2014 12:08 AM EST Myrna Shepard MD POINT OF CARE TEST ORDERABLES Performing Organization Address [facility] de Phone Number [facility] * POCT Glucose (04/17/2014 9:53 PM EST) Glucose, POC 120 60 - 199 mg/dL [facility] Comment: Supplemental ranges: <140 mg/dL before meals <180 mg/dL all other times of the day Blood specimen (specimen) 04/17/2014 9:53 PM EST 04/17/2014 9:53 PM EST Myrna Shepard MD POINT OF CARE TEST ORDERABLES Performing Organization Address [facility] Co de Phone Number [facility] * POCT Glucose (04/17/2014 8:03 PM EST) Glucose, POC 169 60 - 199 mg/dL [facility] Comment: Supplemental ranges: <140 mg/dL before meals <180 mg/dL all other times of the day Blood specimen (specimen) 04/17/2014 8:03 PM EST 04/17/2014 8:03 PM EST Myrna Shepard MD POINT OF CARE TEST ORDERABLES Performing Organization Address City/[facility] Co de Phone Number [facility] * POCT Glucose (04/17/2014 5:23 PM EST) Glucose, POC 155 60 - 199 mg/dL [facility] Comment: Supplemental ranges: <140 mg/dL before meals <180 mg/dL all other times of the day Blood specimen (specimen) 04/17/2014 5:23 PM EST 04/17/2014 5:23 PM EST Myrna Shepard MD POINT OF CARE TEST ORDERABLES Performing Organization Address [facility] Co de Phone Number [facility] * POCT Glucose (04/17/2014 2:11 PM EST) Glucose, POC 130 60 - 199 mg/dL [facility] Comment: Supplemental ranges: <140 mg/dL before meals <180 mg/dL all other times of the day Blood specimen (specimen) 04/17/2014 2:11 PM EST 04/17/2014 2:11 PM EST Myrna Shepard MD POINT OF CARE TEST ORDERABLES Performing Organization Address City/[facility] Co de Phone Number [facility] * (ABNORMAL) Urinalysis with microscopic (04/17/2014 10:35 AM EST) Glucose, Urine Dipstick Negative Negative mg/dL [facility] Protein, Urine Dipstick Negative Negative mg/dL [...] Urine Dipstick Clear Clear [facility] Specific [place] Urine Automated 1.021 1.002 - 1.030 CERNER [...] Shepard MD URINE ORDERABLES Performing Organization Address [facility] de Phone Number [facility] * POCT Glucose (04/17/2014 10:09 AM EST) [facility] Glucose, POC 153 60 - 199 mg/dL [facility] Comment: Supplemental ranges: <140 mg/dL before meals <180 mg/dL all other times of the day Blood specimen (specimen) 04/17/2014 10:09 AM EST 04/17/2014 10:09 AM EST Myrna Shepard MD POINT OF CARE TEST ORDERABLES Performing Organization Address [facility] Phone Number [facility] KATHRYN documented in this encounter Visit Diagnoses Diagnosis [...] to induce or maintain moderate sedation per [facility] Moderate Sedation Protocol, For use in the [...] to induce or maintain moderate sedation per [facility] Moderate Sedation Protocol, For use in the [...] NAHUN) 0833 (Given - Provider: Jace Howard, NAHUN) betaxolol (KERLONE) tablet 10 mg (CANCELED) 10 [...] Villalpando, NAHUN) 0308 (Given - Provider: Tara Thompson, RN) ceFAZolin (ANCEF) 2g in dextrose 5% [...] Villalpando, NAHUN)2000 (Not Given - Provider: Tara Thompson, NAHUN - Reason: Patient/family refused - Comment: would [...] pump inhibitor, Routine 2031 (Given - Provider: aTra Thompson RN) 0833 (Given - Provider: Jace [...] 0045, Routine 0045 (Given - Provider: Tara Thompson RN) Continuous Medication Order 04/16/2014 04/17/2014 04/18/2014 [...] to induce or maintain moderate sedation per [facility] Moderate Sedation Protocol, For use in the [...] to induce or maintain moderate sedation per [facility] Moderate Sedation Protocol, For use in the [...] Cheryle Adan RN)1203 (Given - Provider: Cheryle Adan, RN)1209 (Given - Provider: Cheryle Adan RN)1217 [...] Tara Thompson, RN)0736 (Given - Provider: Jace Howadr, RN) documented in this encounter Care Teams Property And Supply Officer Relationship Specialty Start Date End Date Ángel Bingham MD [facility] [address] [place] [address] PCP - General 01/31/14 09/01/16 documented as of this encounter
--- OUTSIDE RECORDS SUMMARY | 2024-05-24 14:31 | XMS_ITS | Encounter Summary ---
Author Organization [facility] [place] [address] Care Team Providers Care Supervisor Fitting Name Role Phone Ángel Bingham MD Primary Care Provider [phone] Encounter Details Date Type Department Care Team (Late st Contact Info) Description 04/11/2014 Orders Only Cardiology at [address] [phone] Myrna Shepard MD Ventricular tachycardia Social History [...] AM EST Hospital Encounter Non-Invasive [place] [address] Arrived 08/09/2024 10:00 AM EDT Hospital Encounter Non-Invasive [place] [address] Arrived documented as of this encounter Visit Diagnoses Diagnosis Ventricular tachycardia Paroxysmal ventricular tachycardia documented in this encounter Care Teams Supervisor Fitting Relationship Specialty Start Date End Date Ángel Bingham MD [facility] [address] [place], [place] [address] [address] PCP - General 01/31/14 09/01/16 documented as of this encounter
--- OUTSIDE RECORDS SUMMARY | 2024-05-24 14:31 | XMS_ITS | Encounter Summary ---
Author Organization [facility] [place] [address] Care Team Providers Care Zinc Skimmer Name Role Phone Ángel Bingham MD Primary Care Provider [phone] Reason for Visit * Reason Comments Cardiomyopathy ICD check Encounter Details Date Type Department Care Team (Late st Contact Info) Description 07/18/2014 10:00 AM EDT Office Visit Cardiology at [address] [phone] Trena Carlisle RN Sustained VT (ventricular tachycardia) [...] Dr. Self in clinic today as well. Plant Associate: Kit Self MD PCP: ÁNGEL BINGHAM MD Final Parameters: New Atrial electrode: Guidant Dextrus Model# 4126-53 cm Serial# [id number] ?? Bipolar, steroid-tipped, active-fixation IS-1 lead ?? [...] at 10 V: No Old Ventricular electrode: [place] [employer] [place] Model# 0292 Serial# [id number] ?? Bipolar, steroid-tipped, active-fixation DF-4 lead ?? [...] Atrial electrode: Guidant Dextrus Model# 4136 Serial# [id number] ?? Bipolar, steroid-tipped, active-fixation IS-1 lead ?? Access: Axillary vein ?? Location Removed 04/17/2014 ?? Implanted: 01/10/2014 Pulse generator: [employer] Incepta Model# E162 Serial# [id number] ?? DDDR ICD ?? Location: Subcutaneous Tachy [...] histograms: Reasonable distribution Pacing percentages: AP 10%; COMMERCIAL ENERGY AUDITOR <1% Mode switch episodes: 9 episodes for 1% burden since lead revision on 04/17/14. 7 lasting for <1minute and 2 lasting for 1 hour-<24 hours. EGMs and rates suggest Atrial flutter with ventricular rates in the 80's. Patient does not recall these events and states the long lasting episodes most likely occurred while he was in [place] for his sisters and was under stress. Monitored events: 1 episode on 05/15/14. EGM suggests brief NSVT for 4 beats duration Treated events: None Battery voltage: ANN, 10.5 years remaining Charge time: 9.9 sec 07/11/14 Chest x-ray: ok day post atrial lead revision (patient states he had another xray done at [facility] while he was there per his request recently and they said it looked good) Incision assessment: L chest no issues I have reviewed the programming printouts, and the device is functioning normally. Impression: EGM evidence of atrial flutter and fib (21.5 minute episode) and non-EGM recording of episodes > 1 hour but < 24 hours. He's on ASA/Plavix, post JON 05/03. [id number] score is 4 (age, DM, HTN, CAD). [...] Encounter Non-[place] [address] Arrived 08/09/2024 10:00 AM EDT Hospital Encounter Non-Invasive [place] [address] Arrived documented as of this encounter Visit Diagnoses Diagnosis Sustained VT (ventricular tachycardia) Paroxysmal ventricular tachycardia documented in this encounter Care Teams Zinc Skimmer Relationship Specialty Start Date End Date Ángel Bingham MD [facility] [address] [place] [address] PCP - General 01/31/14 09/01/16 documented as of this encounter
--- OUTSIDE RECORDS SUMMARY | 2024-05-24 14:31 | XMS_ITS | Encounter Summary ---
Author [facility] [place] [address] Care Team Providers Care Cleaning Validation Consultant Name Role Phone Ángel Bingham MD Primary Care Provider [phone] Encounter Details Date Type Department Care Team (Late st Contact Info) Description 04/10/2014 Orders Only Cardiology at [address] [address] Social History Tobacco Use Types Packs/Day Years [...] AM EST Hospital Encounter [place] [address] Arrived 08/09/2024 10:00 AM EDT Hospital Encounter [place] [address] Arrived documented as of this encounter Procedures Procedure Name Priority Date/Time Associated Diagnosis Comments CARDIAC DEVICE CHECK - IN CLINIC Routine 04/10/2014 10:51 AM EST documented in this encounter Results * (ABNORMAL) Cardiac device check - In Clinic (04/10/2014 10:51 AM EST) Date Time Interrogation Session IDCO Type Interrogation Session In Clinic IDCO Clinic Name [facility] IDCO Battery Date Time of Measurements IDCO [...] E162 IDCO Implantable Pulse Generator Serial Number [id number] IDCO Implantable Pulse Generator Shop Girl Seekly IDCO Implantable Pulse Generator Implant Date 20140110 IDCO Implantable Lead Model 4136 IDCO Implantable Lead Serial Number [id number] IDCO Implantable Lead Shop Girl GuidTiqets IDCO Implantable Lead Implant Date IDCO Implantable Lead Polarity Type Bipolar Lead IDCO Implantable Lead Location Right Atrium IDCO Implantable Lead Model 0292 IDCO Implantable Lead Serial Number [id number] IDCO Implantable Lead Shop Girl [place] [employer] IDCO Implantable Lead Implant Date IDCO [...] End [id number] IDCO Atrial Tachy Statistic AT/AF [place] Percent 0 % IDCO Therapy Statistic Recent [...] filedocumented in this encounter Care Teams Cleaning Validation Consultant Relationship Specialty Start Date End Date Ángel Bingham MD [facility] [address] [place] [address] PCP - General 01/31/14 09/01/16 documented as of this encounter
--- OUTSIDE RECORDS SUMMARY | 2024-05-24 14:31 | XMS_ITS | Encounter Summary ---
Author Organization [facility] Address [facility] [place] [address] Care Team Providers Care Public Health Outreach Worker Name Role Phone Ángel Bingham MD Primary Care Provider [phone] Encounter Details Date Type Department Care Team (Late st Contact Info) Description 07/18/2014 10:40 AM EDT Follow-Up Cardiology at [address] [address] Kit Self MD [facility] [place] [address] Typical atrial flutter; CAD (coronary artery disease); [...] from the original note were not included. [facility] JAYA Cao [address] CARDIOLOGY OUTPATIENT FOLLOW-UP NOTE Marquez Kimzhang [id number] PCP: ÁNGEL BINGHAM MD 07/18/2014 PRIMARY CARE PROVIDER: ÁNGEL BINGHAM MD PROBLEM LIST: Patient Active Problem List Diagnosis ??? ASCVD (arteriosclerotic cardiovascular disease) ?? [facility] Nuclear stress test at [facility] in [place], [place] May 02, 2013 during which he [...] 80 (documented on ICD interrogation 07/18/14) ?? ZACEX4Iole score = 3 ?? Patient initially reluctant to be anticoagulated as recommended ??? Atrial pacemaker lead displacement New finding at office follow up 04/10/2014 Plan lead reposition/replacement ??? ICD (implantable cardioverter-defibrillator), dual, in situ New Atrial electrode: Guidant Dextrus Model# 4126-53 cm Serial# [id number] ?? Bipolar, steroid-tipped, active-fixation IS-1 lead ?? [...] at 10 V: No Old Ventricular electrode: [place] [employer] [place] Model# 0292 Serial# [id number] ?? Bipolar, steroid-tipped, active-fixation DF-4 lead ?? [...] Atrial electrode: Guidant Dextrus Model# 4136 Serial# [id number] ?? Bipolar, steroid-tipped, active-fixation IS-1 lead ?? Access: Axillary vein ?? Location Removed 04/17/2014 ?? Implanted: 01/10/2014 Pulse generator: [place] [employer] Incepta Model# E162 Serial# [id number] ?? DDDR ICD ?? Location: Subcutaneous The [...] 2 times daily. 90 tablet 6 ??? Compton-3 Fatty Acids (FISH OIL) 500 mg Cap Take by mouth daily. ??? multivitamin capsule Take 1 capsule by mouth daily. ??? LANCETS MISC by Misc.(Non-Drug; Combo Route) route. ??? lamotrigine (LAMICTAL) 100 mg tablet Take 100 mg by mouth daily. ??? alprazolam (XANAX XR) 3 mg 24 hr tablet Take 3 mg by mouth as needed. ? ? lactobac cmb #[id number] (PROBIOTIC & ACIDOPHILUS) 300-250 million cell- mg [...] disease and has undergone stenting in [place] and has twice [place] [facility] [place] which was in April [...] Sustained ventricular tachycardia 3. Atrial flutter with [id number] score of 3 DISCUSSION: He is doing [...] anticoagulation for sustained atrial flutter and elevated [id number] score 3. Cardiology follow-up with pacemaker interrogation in 6 months documented in this encounter Plan of Treatment Upcoming Encounters Date Type Department Care Team (Late st Contact Info) Description 06/15/2024 10:00 AM EST Hospital Encounter Non-Invasive [place] [address] Arrived 08/09/2024 10:00 AM EDT Hospital Encounter Non-Invasive [place] [address] Arrived documented as of this encounter Visit Diagnoses Diagnosis Typical atrial flutter Atrial flutter CAD (coronary artery disease) Coronary atherosclerosis of unspecified type of vessel, [place] or graft Ventricular tachycardia Paroxysmal ventricular tachycardia documented in this encounter Care Teams Public Health Outreach Worker Relationship Specialty Start Date End Date Ángel Bingham MD [facility] [address] [place] [address] PCP - General 01/31/14 09/01/16 documented as of this encounter
--- OUTSIDE RECORDS SUMMARY | 2024-05-24 14:32 | XMS_ITS | Encounter Summary ---
Author Organization [facility] Address [facility] [place] [address] Care Team Providers Care Professor Of Communication Arts Name Role Phone Ángel Bingham MD Primary Care Provider [phone] Encounter Details Date Type Department Care Team (Late st Contact Info) Description 02/02/2014 Telephone Cardiology at [address] [phone] Lisbeth Huff, RN Social History Tobacco Use [...] prescription in to the [facility] in [facility] [place] [facility]. Thank you, Daphney * Telephone Encounter - [...] EST Hospital Encounter Non-Invasive [place] [address] Arrived 08/09/2024 10:00 AM EDT Hospital Encounter Non-Invasive [place] [address] Arrived documented as of this encounter Visit Diagnoses Not on filedocumented in this encounter Care Teams Professor Of Communication Arts Relationship Specialty Start Date End Date Ángel Bingham MD [facility] [address] [place] [address] [place] [address] PCP - General 01/31/14 09/01/16 documented as of this encounter
--- OUTSIDE RECORDS SUMMARY | 2024-05-24 14:32 | XMS_ITS | Encounter Summary ---
[place] [address] Care Team Providers Care Ep Tech Name Role Phone Ángel Bingham MD Primary Care Provider [phone] Reason for Visit * Reason Comments Cardiomyopathy Encounter Details Date Type Department Care Team (Late st Contact Info) Description 04/10/2014 9:30 AM EST Office Visit Cardiology at [address] [phone] Raul Lopes RN Sustained VT (ventricular tachycardia) [...] He complains of some LLOYD since implant. Space Systems Operations Manager: Kit Self MD PCP: ÁNGEL BINGHAM MD Final Parameters: Ventricular electrode: [employer] [employer] [place] Model# 0292 Serial# [id number] ?? Bipolar, steroid-tipped, active-fixation, single coil DF-4 lead ?? Access: Left axillary vein ?? Location: RV apex ?? R wave, ICD: 9.6 mV ?? Pacing threshold, ICD: 0.6 V at 0.5 ms ?? Impedance, ICD: 913 ohms (74 ohms for shock vector) ?? Pace the diaphragm at 10 V: No Atrial electrode: [place] [employer] Dextrus Model# 4136 Serial# [id number] ?? Bipolar, steroid-tipped, active-fixation IS-1 lead ?? Access: Left axillary vein ?? Location Right atrial appendage ?? P wave, ICD: 4.3 mV ?? Pacing threshold, pacemaker: 1.7 V at 0.5 ms ?? Impedance, pacemaker: 538 ohms ?? Pace the diaphragm at 10 V: No Pulse generator: [employer] Incepta Model# E162 Serial# [id number] DDDR ICD ?? Location: Subcutaneous Tachy settings: [...] histograms: Reasonable distribution Pacing percentages: AP 48%; PRACTICE PHYSICIAN 21% Mode switch episodes: None Monitored events: [...] with the plan. Lars Hernandez DO Cardiac Cryptographic Machine Operator Cardiac Electrophysiology Department [place], [place] ) Pager [phone]) documented in this encounter Plan of Treatment Upcoming Encounters Date Type Department Care Team (Late st Contact Info) Description 06/15/2024 10:00 AM EST Hospital Encounter [place] [address] Arrived 08/09/2024 10:00 AM EDT Hospital Encounter [place] [address] Arrived documented as of this encounter Visit Diagnoses Diagnosis Sustained VT (ventricular tachycardia) Paroxysmal ventricular tachycardia documented in this encounter Care Teams Ep Tech Relationship Specialty Start Date End Date Ángel Bingham MD [facility] [address] [place] [address] PCP - General 01/31/14 09/01/16 documented as of this encounter
--- OUTSIDE RECORDS SUMMARY | 2024-05-24 14:32 | XMS_ITS | Encounter Summary ---
Author Organization Formerly [facility] Address [facility] [place] [address] Care Team Providers Care Technical Developer Name Role Phone Jennifer Haro MD Primary Care Provider Court uribe Encounter Details Date Type Department Care Team (Latest Contact Info) Description 01/06/2014 1:50 AM EDT - 01/11/2014 1:38 PM EDT Hospital Encounter Intermediate [place] [id number] Kenia Bauman MD [facility] [place] [address] [place] [address] ASCVD (arteriosclerotic cardiovascular disease); Non-ST elevation myocardial [...] a 91 day new device check at [facility]. 4. Transtelephonic device follow [...] Center 02/07/2014 8:10 AM Kit Self MD [facility] Follow-Up Appointments Date and Time Provider and Specialty Location Jan 13, 2014 @ 2:[address] [facility] Your Inpatient Doctor: Kenia Bauman MD Your Primary Care Provider: JENNIFER AHRO MD [phone] For questions regarding this document or issues relating to this hospitalization on the Medical Service, please contact your inpatient physician through the [facility] Hazmat Cdl A Driver . Issues afterhours and on weekends will [...] times daily. 90 tablet 6 05/14/2013 01/27/2017 Ellis-3 Fatty Acids (FISH OIL) 500 mg Cap Take by mouth daily. 01/14/2016 lamotrigine (LAMICTAL) 100 mg tablet Take 200 mg by mouth daily. 09/01/2018 alprazolam (XANAX XR) 3 mg 24 hr tablet Take 3 mg by mouth nightly. 09/18/2020 [id number] (PROBIOTIC & ACIDOPHILUS) 300-250 million cell-mg Cap [...] answered at this time. Patient discharged to [facility] with Daughter in stable condition. Wheelchair offered; patient elected to walk. * Edy Torres PA - 01/11/2014 12:10 PM EDT Patient Name: Shahnaz Santiago Patient Age: 63 y.o. Birthdate: 1950 Admit date: 01/06/2014 Attending Physician: Kenia Bauman MD Cardiac Electrophysiology Post-Iimplant Device Interrogation Note Shahnaz Santiago is a 63 y.o. male is POD # 1 following implant of a dual chamber, [employer] ICD for sustained ventricular tachycardia. He [...] in situ V45.02 Device data: Ventricular electrode: [employer] Malaga Model# 0292 Serial# [id number] Bipolar, steroid-tipped, active-fixation, single coil DF-4 lead Access: Left axillary vein Location: RV apex R wave, ICD: 9.6 mV Pacing threshold, ICD: 0.6 V at 0.5 ms Impedance, ICD: 913 ohms (74 ohms for shock vector) Pace the diaphragm at 10 V: No Atrial electrode: [employer] Dextrus Model# 4136 Serial# [id number] Bipolar, steroid-tipped, active-fixation IS-1 lead Access: Left axillary vein Location Right atrial appendage P wave, ICD: 4.3 mV Pacing threshold, pacemaker: 1.7 V at 0.5 ms Impedance, pacemaker: 538 ohms Pace the diaphragm at 10 V: No Pulse generator: Particle Incepta Model# E162 Serial# [id number] DDDR ICD Location: Subcutaneous Defibrillation testing was [...] ~ 91 days. Provider: MAXIMO Leija Provider#: [id number] Consult attending physician: Estefanía Cross MD * Raul Salmeron RN - 01/11/2014 8:04 AM EDT Inpatient Post ICD Implant Teaching Note Verbal teaching was performed today vduv-eg-gvoz with the patient including the following: -Brief generalized teaching of how ICDs function, and the patient's specific indication for ICD implant -Activity restrictions post ICD implant -Remote monitoring of the ICD via telephone (patient was given [facility] Latitude communicator today). -ICD insertion site wound [...] ICD placement today. Pt is insured with [employer]. No discharge needs identified at this time. Will continue to follow for coordination of care and discharge planning. Nora Schaeffer REAR ADMIRAL [facility]/Stacy Pabon MSN BSN RN [facility] Office of Care Managment Pager [phone] * Yamile Raya RN - 01/10/2014 6:30 [...] One episode 7 beat run VT ~150bpm. Meraux warm, needed to urinate during that time. [...] in to convince him not to leave [facility] without an ICD. Will await his decision. [...] Jennifer Harris - 01/06/2014 4:24 PM EDT Hydraulic Press Operator Encounter Note Patient Name: Shahnaz Santiago : [id number] MR#: [id number] Admit Date: 01/06/2014 1:50 AM Hospital Day 0 days Narrative: Shahnaz was happy and open to translational specialist visit. Assessment: We had a long conversation of what he considered that has been militating against a health life-style: smoking. Moreover he was not a quaker person based on his experiences over the years yet accepts prayers. Intervention and Outcome: We prayed for God's healing & strength. Follow-up: Yes Time in Direct Care: 35 mins Jennifer Zimmer Steven 01/06/2014 * Stacy Pabon RN - 01/06/2014 2:17 PM EDT Office of Care Management Clinical Yarn Twister Patient Name: Shahnaz Santiago : 1950, 63 yrs Admission Date: 01/06/2014 1:50 AM Attending: Kenia Bauman MD Order to Admit: Signed Record reviewed and patient discussed with multidisciplinary team. Lives in [place], [place] 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 He is independent and drives. Insurance: No Insurance. (Guillermo Aaron GENERAL ASSEMBLER INSTALLER notified) [facility] Medical/Surgical:63 yo man with ASCVD [...] Pabon MSN RN Clinical Resource Coordinators Phone: [phone] Pager [phone] documented in this encounter H&P Notes * Edy Berry MD - 01/07/2014 5:02 PM EDT Inpatient Cardiac Electrophysiology Follow-up Note Date of Consultation: 01/07/2014 Admit Date: 01/06/2014 Place of Service: Inpatient Unit Reason for Consult: We are seeing Shahnaz Santiago for the evaluation of ventricular tachycardia Patient Active Problem List Diagnosis ??? ASCVD (arteriosclerotic cardiovascular disease) Overview Note: ?? Heart catheterization in [facility] [...] Nuclear stress test at [facility] in [place], [place] May 02, 2013 during which he developed left shoulder and arm discomfort during submaximal exercise on the treadmill and after which he was converted to a pharmacologic test; nuclear imaging showed ejection fraction of 45% with a partially reversible inferior defect ?? Cath [facility] 05/13/2013: normal left main, mild diffuse disease [...] ASCVD (PCI to Cx, LAD; no hx MT) and tobacco use. Andressa recently had a [...] the next morning, and he went to [facility], where ECG showed VT. He was cardioverted with return to NSR with 1st degree AVB, sub-mm STD in the lateral leads. His troponin was indeterminate. The patient was transferred to the [facility], where he has remained in NSR. [...] mg by mouth 2 times daily. ??? Ellis-3 Fatty Acids (FISH OIL) 500 mg Cap Take by mouth daily. ??? multivitamin capsule Take 1 capsule by mouth daily. ??? LANCETS MISC by Misc.(Non-Drug; Combo Route) route. ??? lamotrigine (LAMICTAL) 100 mg tablet Take 100 mg by mouth daily. ??? alprazolam (XANAX XR) 3 mg 24 hr tablet Take 3 mg by mouth every morning. ? ? lactobac cmb #[id number] (PROBIOTIC & ACIDOPHILUS) 300-250 million cell- mg [...] of cardiac arrest, pt believes due to MT at age of 53. Heavy smoker. His mother had PVD. 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 Heart catheterization in [facility] [...] Nuclear stress test at [facility] in [place], [place] May 02, 2013 during which he developed left shoulder and arm discomfort during submaximal exercise on the treadmill and after which he was converted to a pharmacologic test; nuclear imaging showed ejection fraction of 45% with a partially reversible inferior defect ?? Cath [facility] 05/13/2013: normal left main, mild diffuse disease [...] ASCVD (PCI to Cx, LAD; no hx MT) and tobacco use. Hemost recently had a [...] the next morning, and he went to [facility], where ECG showed VT. He was cardioverted with return to NSR with 1st degree AVB, sub-mm STD in the lateral leads. His troponin was indeterminate. The patient was transferred to the [facility], where he has remained in NSR. [...] mg by mouth 2 times daily. ??? Ellis-3 Fatty Acids (FISH OIL) 500 mg Cap Take by mouth daily. ??? multivitamin capsule Take 1 capsule by mouth daily. ??? LANCETS MISC by Misc.(Non-Drug; Combo Route) route. ??? lamotrigine (LAMICTAL) 100 mg tablet Take 100 mg by mouth daily. ??? alprazolam (XANAX XR) 3 mg 24 hr tablet Take 3 mg by mouth every morning. ? ? lactobac cmb #[id number] (PROBIOTIC & ACIDOPHILUS) 300-250 million cell- mg [...] of cardiac arrest, pt believes due to MT at age of 53. Heavy smoker. His mother had PVD. 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 He should ideally check pulse for any recurrent symptoms of VT (e.g. Weakness, SOB) and not delay hospital presentation as he did this time. Will discuss more with him in AM. * Kenia Bauman MD - 01/06/2014 2:45 AM EDT Cardiology Admission History and Physical Patient Name: Shahnaz Santiago Service: [address] Responsible Attending: Kenia Bauman MD, MD PCP: JENNIFER HARO MD PCP phone #: [phone] ID/Chief Complaint: 63 yo man with ASCVD [...] a chronic, has beenaffecting him 20 years, boqxovsyc-so-cpvjiothrc, sternally located discomfort that is constant and [...] rhythm with a 1st degree AV block CT of 214ms, as well as new T-wave inversions and sub 1mm ST depressions in V3-V6. His troponin was an indeterminate value 0.13 (0.06-0.59 =indeterminate). The patient was then transferred to [facility]. , OSH labs prior to transfer: 15.2 [...] (arteriosclerotic cardiovascular disease) ?? Heart catheterization in [facility] [...] Nuclear stress test at [facility] in [place], [place] May 02, 2013 during which he developed left shoulder and arm discomfort during submaximal exercise on the treadmill and after which he was converted to a pharmacologic test; nuclear imaging showed ejection fraction of 45% with a partially reversible inferior defect ?? Cath [facility] 05/13/2013: normal left main, mild diffuse disease [...] Cap Take by mouth daily. Generic drug: Ellis-3 Fatty Acids Refills: 0 glipiZIDE 5 mg [...] by mouth daily. Generic drug: lactobac cmb #6-btb-xhhvbkchmp Refills: 0 rosuvastatin 20 mg Tab Commonly [...] ischemia Kalyan Babb, PGY-2 Team Pager # [phone] Cardiology Attending Addendum I have interviewed and [...] 01/12/2014 11:50 AM EDTAssociated Order(s): SCAN DOC: BOOK SHELVER documented in this encounter Miscellaneous Notes * [...] a chronic, has beenaffecting him 20 years, grhildycn-vz-ahlbotgdko, sternally located discomfort that is constant and [...] rhythm with a 1st degree AV block CT of 214ms, as well as new T-wave inversions and sub 1mm ST depressions in V3-V6. His troponin was an indeterminate value 0.13 (0.06-0.59 =indeterminate). The patient was then transferred to [facility]. Hospital Course: # Ventricular tachycardia The patient [...] for an in-stent thrombosis (04/2013), an ischemic clark driver of his arrhythmia was a strong [...] (CL) of 1070 ms were as follows: CT: 230 ms HV: 40 ms (?) QRS: 110 ms (no manifest pre-excitation) QT: 450 ms 2) Atrial overdrive pacing (10 mA @ 2 ms) was accomplished from the low right atrium, and the atrioventricular (AV) Wenckebach block CL was observed at 500 ms. There was no pre-excitation or conduction aberrancy identified. The jqgbwheu-ro-ZRE < QRS-QRS just prior to the observed [...] Cap Take by mouth daily. Generic drug: Ellis-3 Fatty Acids Refills: 0 glipiZIDE 5 mg [...] by mouth daily. Generic drug: lactobac cmb #9-flb-iemtucwyev Refills: 0 rosuvastatin 20 mg Tab Commonly [...] Center 02/07/2014 8:10 AM Kit Self MD [facility] Cardio [facility] Follow-Up Appointments Date and Time Provider and Specialty Location Jan 13, 2014 @ 2:[address] [facility] Doctor: Kenia Bauman MD Your Primary Care Provider: JENNIFER HARO MD [phone] For questions regarding this document or issues relating to this hospitalization on the Medical Service, please contact your inpatient physician through the [facility] Hazmat Cdl A Driver . Issues afterhours and on weekends will be handled by the Hospitalist staff on-call. Future Appointments and Orders Future Appointments: Provider: Department: Dept Phone: Center: 02/07/2014 8:10 AM Kit Self MD Cardiology [phone] [facility] Joint Appt Nurse One Cardiology NAHUN Corrales 4A [phone] [facility] 04/10/2014 9:30 AM Raul Salmeron RN Cardiology [phone] [facility] For questions regarding this document or issues relating to this hospitalization on the Medical Service, please contact your inpatient physician through the [facility] Hazmat Cdl A Driver . Issues afterhours and on weekends will be handled by the Motorcycle Delivery Driver staff on-call. Signed: KENIA BAUMAN MD * [...] in the out pt CR program at [facility]. He was admitted with LLOYD and VT. Cardiac cath showed no ischemic etiology of sx. Being considered for ICD. Will refer him back to the [facility] prog at discharge * Miscellaneous - Provider, Scanning - 01/07/2014 2:41 PM EDT * Op Note - José Manuel Cole MD - 01/06/2014 5:34 PM EDT Electrophysiology Study Hazmat Cdl A Driver: José Manuel Cole MD Indication: Ventricular tachycardia [...] (CL) of 1070 ms were as follows: CT: 230 ms HV: 40 ms (?) QRS: 110 ms (no manifest pre-excitation) QT: 450 ms 2) Atrial overdrive pacing (10 mA @ 2 ms) was accomplished from the low right atrium, and the atrioventricular (AV) Wenckebach block CL was observed at 500 ms. There was no pre-excitation or conduction aberrancy identified. The hpirpakt-or-QTH < QRS-QRS just prior to the observed [...] AM EST Hospital Encounter Non-[place] [address] Arrived 08/09/2024 10:00 AM EDT Hospital Encounter Non-Invasive [place] [address] Arrived documented as of this encounter Procedures Procedure Name Priority Date/Time Associated Diagnosis Comments BOOK SHELVER SCAN 01/12/2014 11:50 AM EDT POCT GLUCOSE [...] Routine 01/07/20 3:58 PM EDT CARDIAC ENZYMES ([facility]) Routine 01/06/2014 12:40 PM EDT POCT GLUCOSE Routine 01/06/2014 12:15 PM EDT CARDIAC ENZYMES ([facility]) Routine 01/06/2014 11:30 AM EDT APTT STAT [...] 2:50 AM EDT DIFFERENTIAL, AUTOMATED Routine 01/07/20 2:50 AM EDT CARDIAC ENZYMES ([facility]) Routine 01/06/2014 2:50 AM EDT CBC (WITH DIFF) Routine 01/06/2014 2:50 AM EDT MAGNESIUM Routine 01/06/2014 2:50 AM EDT LIPID PANEL (REFLEX DIRECT LDL) Routine 01/06/2014 2:50 AM EDT BASIC METABOLIC PANEL Routine 01/06/2014 2:50 AM EDT EKG 12-LEAD Routine 01/06/2014 2:01 AM EDT documented in this encounter Results * SCAN DOC: BOOK SHELVER (01/12/2014 11:50 AM EDT) Anatomical Region Laterality [...] MD POINT OF CARE TEST O RDERABLES [facility] * XR chest routine PA [...] * POCT Glucose (01/11/2014 8:03 AM EDT) Pathologist [facility] Glucose, POC 147 60 - 199 mg/dL CERNER MILLENNIUM Comment: Supplemental ranges: <140 mg/dL before meals <180 mg/dL all other times of the day Blood specimen (specimen) 01/11/2014 8:03 AM EDT 01/11/2014 8:03 AM EDT Kenia Bauman MD POINT OF CARE TEST O RDERABLES CERNER MILLENNIUM * (ABNORMAL) Differential, Automated (01/11/2014 3:56 AM EDT) Pathologist [facility] Neutrophil % 64.0 34.0 - 71.0 % [...] MD HEMATOLOGY ORDERABLE S Performing Organization Address City/[facility] Co de Phone Number CERNER MILTONENNIUM * Magnesium (01/11/2014 3:56 AM EDT) Magnesium 0.70 0.69 - 1.07 mmol/L CERNER MILLENNIUM Blood specimen (specimen) 01/11/2014 3:56 AM EDT 01/11/2014 4:21 AM EDT Narrative Resulting Agency Comment Spec In Lab Kenia Bauman MD CHEMISTRY ORDERABLES Performing Organization Address [facility] Co de Phone Number [facility] MILLENNIUM * Basic Metabolic Panel (non-fasting) (01/11/2014 3:56 AM EDT) Glucose 137 60 - 199 mg/dL CERNER MILLENNIUM Comment:Diabetes: >=200 mg/d L plus symptoms Blood Urea Nitrogen 18 10 - 20 mg/dL CERNER MILLENNIUM Creatinine 0.83 0.80 - 1.50 mg/dL CERNER MILLENNIUM Comment: Please note that the pediatric reference intervals supplied above were not validated at [facility]. Results from pediatric patients should be interpreted [...] MILLENNIUM Est Glomerular Filtration Rate >60 >=60 [facility] Comment: This estimated GFR (eGFR) value was [...] the following links into your internet browser. [email or web address] Blood specimen (specimen) 01/11/2014 3:56 AM EDT 01/11/2014 4:21 AM EDT Narrative Resulting Agency Comment Spec In Lab Kenia Bauman MD CHEMISTRY ORDERABLES Performing Organization Address [facility] Phone Number [facility] * POCT Glucose (01/11/2014 3:46 AM EDT) Glucose, POC 137 60 - 199 mg/dL [facility] Comment: Supplemental ranges: <140 mg/dL before meals <180 mg/dL all other times of the day Blood specimen (specimen) 01/11/2014 3:46 AM EDT 01/11/2014 3:46 AM EDT Kenia Bauman MD POINT OF CARE TEST O RDERABLES Performing Organization Address [facility] de Phone Number [facility] * POCT Glucose (01/10/2014 11:57 PM EDT) Glucose, POC 173 60 - 199 mg/dL [facility] Comment: Supplemental ranges: <140 mg/dL before meals <180 mg/dL all other times of the day Blood specimen (specimen) 01/10/2014 11:57 PM EDT 01/10/2014 11:57 PM EDT Kenia Bauman MD POINT OF CARE TEST O RDERABLES Performing Organization Address [facility] de Phone Number [facility] * (ABNORMAL) POCT Glucose (01/10/2014 8:31 PM EDT) Glucose, POC 201(H) 60 - 199 mg/dL [facility] Comment: Supplemental ranges: <140 mg/dL before meals <180 mg/dL all other times of the day Blood specimen (specimen) 01/10/2014 8:31 PM EDT 01/10/2014 8:31 PM EDT Kenia Bauman MD POINT OF CARE TEST O SMAPSON Performing Organization Address [facility] de Phone Number [facility] * POCT Glucose (01/10/2014 6:04 PM EDT) Glucose, POC 164 60 - 199 mg/dL [facility] Comment: Supplemental ranges: <140 mg/dL before meals <180 mg/dL all other times of the day Blood specimen (specimen) 01/10/2014 6:04 PM EDT 01/10/2014 6:04 PM EDT Kenia Bauman MD POINT OF CARE TEST O SAMPSON Performing Organization Address [facility] Phone Number [facility] * Electrophysiology Procedure (01/10/2014 5:19 [...] with O-silk. Final Parameters: Ventricular electrode: ?? Particle Malaga Model# 0292 Serial# [id number] ??Bipolar, steroid-tipped, active-fixation, ??single coil DF-4 lead ??Access: ? Left axillary vein ??Location: ?RV apex ??R wave, ICD: ? 9.6 mV ??Pacing threshold, ICD: ? 0.6 V at 0.5 ms ??Impedance, ICD: ? 913 ohms (74 ohms for shock vector) ??Pace the diaphragm at 10 V: ??No Atrial electrode: ?? Particle Dextrus Model# 4136 Serial# [id number] ??Bipolar, steroid-tipped, active-fixation IS-1 lead ??Access: ? Left axillary vein ??Location ? Right atrial appendage ??P wave, ICD: ? 4.3 mV ??Pacing threshold, pacemaker: ??1.7 V at 0.5 ms ??Impedance, pacemaker: ??538 ohms ??Pace the diaphragm at 10 V: ??No Pulse generator: ? [employer] Incepta Model# E162 Serial# [id number] DDDR ICD ??Location: ?Subcutaneous Defibrillation testing was [...] major muscle withO-silk. Final Parameters: Ventricular electrode: [employer] Malaga Model# 0292 Serial# [id number] Bipolar, steroid-tipped, active-fixation, single coil DF-4 lead Access: Left axillary vein Location: RV apex R wave, ICD: 9.6 mV Pacing threshold, ICD: 0.6 V at 0.5 ms Impedance, ICD: 913 ohms (74 ohms for shock vector) Pace the diaphragm at 10 V: No Atrial electrode: [employer] Dextrus Model# 4136 Serial# [id number] Bipolar, steroid-tipped, active-fixation IS-1 lead Access: Left axillary vein Location Right atrial appendage P wave, ICD: 4.3 mV Pacing threshold, pacemaker: 1.7 V at 0.5 ms Impedance, pacemaker: 538 ohms Pace the diaphragm at 10 V: No Pulse generator: [employer] Incepta Model# E162 Serial# [id number] DDDR ICD Location: Subcutaneous Defibrillation testing was [...] (ABNORMAL) POCT Glucose (01/10/2014 11:39 AM EDT) [facility] Glucose, POC 218(H) 60 - 199 mg/dL CERNER MILLENNIUM Comment: Supplemental ranges: <140 mg/dL before meals <180 mg/dL all other times of the day Blood specimen (specimen) 01/10/2014 11:39 AM EDT 01/10/2014 11:39 AM EDT Kenia Bauman MD POINT OF CARE TEST O RDERABLES Performing Organization Address [facility] de Phone Number [facility] * (ABNORMAL) POCT Glucose (01/10/2014 7:36 AM EDT) Glucose, POC 242(H) 60 - 199 mg/dL [facility] Comment: Supplemental ranges: <140 mg/dL before meals <180 mg/dL all other times of the day Blood specimen (specimen) 01/10/2014 7:36 AM EDT 01/10/2014 7:36 AM EDT Kenia Bauman MD POINT OF CARE TEST O RDERALOREE Performing Organization Address [facility] de Phone Number [facility] * POCT Glucose (01/10/2014 4:25 AM EDT) Glucose, POC 153 60 - 199 mg/dL [facility] Comment: Supplemental ranges: <140 mg/dL before meals <180 mg/dL all other times of the day Blood specimen (specimen) 01/10/2014 4:25 AM EDT 01/10/2014 4:25 AM EDT Kenia Bauman MD POINT OF CARE TEST O RDERALOREE Performing Organization Address [facility] de Phone Number [facility] * (ABNORMAL) Differential, Automated (01/10/2014 4:21 AM EDT) Neutrophil % 45.9 34.0 - 71.0 % [facility] Neutrophil Absolute 4.06 1.50 - 6.30 x10(3)/mc L [facility] Lymph % 40.1 19.0 - 53.0 % [facility] Lymphocytes Abs 3.6 1.0 - 3.6 x10(3)/mc [...] ORDERABLE S MONICA BENITEZIUM * (ABNORMAL) Hemogram (01/10/2014 4:21 AM EDT) White Blood Cell 8.8 4.0 - 10.0 x10(3)/mc L CERNER MILLENNIUM Red Blood Cell 4.46(L) 4.63 - 6.08 x10(6)/mc L CERNER MILLENNIUM Hemoglobin 13.6(L) 13.7 - 17.5 gm/dL CERNER MILLENNIUM Hematocrit 38.8(L) 40.0 - 51.0 % CERNER MILLENNIUM Mean Cell Volume 87.0 79.0 - 92.0 fL CERNER MILLENNIUM Mean Cell Hemoglobin 30.5 25.6 - 32.2 pg [facility] MILLENNIUM Mean Cell Hemoglobin Concentration 35.1 32.0 - 36.5 gm/dL [facility] MILLENNIUM Platelet 177 145 - 370 x10(3)/mc L CERNER MILLENNIUM RDW Standard Deviation 44.5 35.0 - 46.0 fL CERNER MILLENNIUM RDW coefficient of variation 14.3 10.9 - 14.4 % CERNER MILLENNIUM Mean Platelet Volume 9.7 9.0 - 12.0 fL [facility] MILLEN[facility]UM Blood specimen (specimen) 01/10/2014 4:21 AM EDT 01/10/2014 4:36 AM EDT Narrative Resulting Agency Comment Spec In Lab Kenia Bauman MD HEMATOLOGY ORDERABLE S Performing Organization Address [facility] Co de Phone Number [facility] * (ABNORMAL) Magnesium (01/10/2014 4:21 AM EDT) [facility] Magnesium 0.67(L) 0.69 - 1.07 mmol/L [facility] Blood specimen (specimen) 01/10/2014 4:21 AM EDT 01/10/2014 4:36 AM EDT Narrative Resulting Agency Comment Spec In Lab Kenia Bauman MD CHEMISTRY ORDERABLES Performing Organization Address [facility] Co de Phone Number [facility] * Basic Metabolic Panel (non-fasting) (01/10/2014 4:21 AM EDT) Pathologist [facility] Glucose 161 60 - 199 mg/dL [facility] Comment:Diabetes: >=200 mg/d L plus symptoms Blood Urea Nitrogen 17 10 - 20 mg/dL [facility] Creatinine 0.91 0.80 - 1.50 mg/dL [facility] MILLENNIUM Comment: Please note that the pediatric reference intervals supplied above were not validated at [facility]. Results from pediatric patients should be interpreted in conjunction to the patient's age, height and muscle mass. Sodium 139 135 - 145 mmol/L [facility] Potassium 4.3 3.5 - 5.0 mmol/L [facility] Comment: Please note: ??Patients with WBC [...] the following links into your internet browser. [email or web address] Blood specimen (specimen) 01/10/2014 4:21 AM EDT 01/10/2014 4:36 AM EDT Narrative Resulting Agency Comment Spec In Lab Kenia Bauman MD CHEMISTRY ORDERABLES Performing Organization Address [facility] de Phone Number [facility] * POCT Glucose (01/09/2014 11:25 PM EDT) Glucose, POC 164 60 - 199 mg/dL [facility] Comment: Supplemental ranges: <140 mg/dL before meals <180 mg/dL all other times of the day Blood specimen (specimen) 01/09/2014 11:25 PM EDT 01/09/2014 11:25 PM EDT Kenia Bauman MD POINT OF CARE TEST O RDERABLES Performing Organization Address [facility] Co de Phone Number [facility] * (ABNORMAL) POCT Glucose (01/09/2014 8:03 PM EDT) Glucose, POC 204(H) 60 - 199 mg/dL [facility] Comment: Supplemental ranges: <140 mg/dL before meals <180 mg/dL all other times of the day Blood specimen (specimen) 01/09/2014 8:03 PM EDT 01/09/2014 8:03 PM EDT Kenia Bauman MD POINT OF CARE TEST O RDERALOREE Performing Organization Address [facility] Co de Phone Number [facility] * (ABNORMAL) POCT Glucose (01/09/2014 4:34 PM EDT) Glucose, POC 231(H) 60 - 199 mg/dL [facility] Comment: Supplemental ranges: <140 mg/dL before meals <180 mg/dL all other times of the day Blood specimen (specimen) 01/09/2014 4:34 PM EDT 01/09/2014 4:34 PM EDT Kenia Bauman MD POINT OF CARE TEST O SAM[place]ON Performing Organization Address [facility] Co de Phone Number [facility] * (ABNORMAL) POCT Glucose (01/09/2014 11:44 AM EDT) Glucose, POC 280(H) 60 - 199 mg/dL [facility] Comment: Supplemental ranges: <140 mg/dL before meals <180 mg/dL all other times of the day Blood specimen (specimen) 01/09/2014 11:44 AM EDT 01/09/2014 11:44 AM EDT Kenia Bauman MD POINT OF CARE TEST O RDERALOREE Performing Organization Address [facility] de Phone Number [facility] * POCT Glucose (01/09/2014 7:51 AM EDT) Glucose, POC 148 60 - 199 mg/dL [facility] Comment: Supplemental ranges: <140 mg/dL before meals <180 mg/dL all other times of the day Blood specimen (specimen) 01/09/2014 7:51 AM EDT 01/09/2014 7:51 AM EDT Kenia Bauman MD POINT OF CARE TEST O RDERABLES CERNER MILLENNIUM * Basic Metabolic Panel (non-fasting) (01/09/2014 4:32 AM EDT) Glucose 124 60 - 199 mg/dL CERNER MILLENNIUM Comment:Diabetes: >=200 mg/d L plus symptoms Blood Urea Nitrogen 15 10 - 20 mg/dL CERNER MILLENNIUM Creatinine 0.87 0.80 - 1.50 mg/dL CERNER MILLENNIUM Comment: Please note that the pediatric reference intervals supplied above were not validated at [facility]. Results from pediatric patients should be interpreted [...] the following links into your internet browser. [email or web address] Blood specimen (specimen) 01/09/2014 4:32 AM EDT 01/09/2014 4:38 AM EDT Narrative Resulting Agency Comment Spec In Lab Kenia Bauman MD CHEMISTRY ORDERABLES Performing Organization Address City/State/[facility] Co de Phone Number CERNER MILLENNIUM * (ABNORMAL) Differential, Automated (01/09/2014 [...] MD HEMATOLOGY ORDERABLE S Performing Organization Address City/[facility] Co de Phone Number [facility] ROSEENNIUM * (ABNORMAL) Hemogram (01/09/2014 4:32 AM EDT) White Blood Cell 8.0 4.0 - 10.0 x10(3)/mc L CERNER MILLENNIUM Red Blood Cell 4.83 4.63 - 6.08 x10(6)/mc L CERNER MILLENNIUM Hemoglobin 14.5 13.7 - 17.5 gm/dL CERNER MILLENNIUM Comment:Repeated & verified Hematocrit 43.0 40.0 - 51.0 % CERNER MILLENNIUM Mean Cell Volume 89.0 79.0 - 92.0 fL CERNER MILLENNIUM Mean Cell Hemoglobin 30.0 25.6 - 32.2 pg CERNER MILLENNIUM Mean Cell Hemoglobin Concentration 33.7 32.0 - 36.5 gm/dL CERNER MILLENNIUM Platelet 184 145 - 370 x10(3)/mc L CERNER MILLENNIUM RDW Standard Deviation 47.4(H) 35.0 - 46.0 fL CERNER MILLENNIUM RDW coefficient of variation 14.8(H) 10.9 - 14.4 % CERNER MILLENNIUM Mean Platelet Volume 10.3 9.0 - 12.0 fL CERNER MILLENNIUM Blood specimen (specimen) 01/09/2014 4:32 AM EDT 01/09/2014 4:38 AM EDT Narrative Resulting Agency Comment Spec In Lab Kenia Bauman MD HEMATOLOGY ORDERABLE S Performing Organization Address [facility] de Phone Number [facility] ROSEENNIUM * Magnesium (01/09/2014 4:32 AM EDT) Magnesium 0.76 0.69 - 1.07 mmol/L CERNER MILLENNIUM Blood specimen (specimen) 01/09/2014 4:32 AM EDT 01/09/2014 4:38 AM EDT Narrative Resulting Agency Comment Spec In Lab Kenia Bauman MD CHEMISTRY ORDERABLES Performing Organization Address [facility]/ZIP Co de Phone Number MONICA ROSEENNIUM * POCT Glucose (01/09/2014 4:19 AM EDT) Glucose, POC 114 60 - 199 mg/dL [facility] Comment: Supplemental ranges: <140 mg/dL before meals <180 mg/dL all other times of the day Blood specimen (specimen) 01/09/2014 4:19 AM EDT 01/09/2014 4:19 AM EDT Kenia aBuman MD POINT OF CARE TEST O [place] Performing Organization Address [facility] Co de Phone Number [facility] * POCT Glucose (01/09/2014 1:41 AM EDT) Glucose, POC 155 60 - 199 mg/dL [facility] Comment: Supplemental ranges: <140 mg/dL before meals <180 mg/dL all other times of the day Blood specimen (specimen) 01/09/2014 1:41 AM EDT 01/09/2014 1:41 AM EDT Kenia Bauman MD POINT OF CARE TEST O [place] Performing Organization Address [facility] Co de Phone Number [facility] * (ABNORMAL) POCT Glucose (01/08/2014 11:19 PM EDT) Glucose, POC 252(H) 60 - 199 mg/dL [facility] Comment: Supplemental ranges: <140 mg/dL before meals <180 mg/dL all other times of the day Blood specimen (specimen) 01/08/2014 11:19 PM EDT 01/08/2014 11:19 PM EDT Kenia Bauman MD POINT OF CARE TEST O [place] Performing Organization Address [facility] de Phone Number [facility] * (ABNORMAL) POCT Glucose (01/08/2014 7:50 PM EDT) Glucose, POC 205(H) 60 - 199 mg/dL [facility] Comment: Supplemental ranges: <140 mg/dL before meals <180 mg/dL all other times of the day Blood specimen (specimen) 01/08/2014 7:50 PM EDT 01/08/2014 7:50 PM EDT Kenia Bauman MD POINT OF CARE TEST O [place] Performing Organization Address [facility] de Phone Number [facility] * POCT Glucose (01/08/2014 5:17 PM EDT) Glucose, POC 194 60 - 199 mg/dL [facility] Comment: Supplemental ranges: <140 mg/dL before meals <180 mg/dL all other times of the day Blood specimen (specimen) 01/08/2014 5:17 PM EDT 01/08/2014 5:17 PM EDT Kenia Bauman MD POINT OF CARE TEST O [place] Performing Organization Address [facility] de Phone Number [facility] * (ABNORMAL) POCT Glucose (01/08/2014 2:21 PM EDT) Glucose, POC 230(H) 60 - 199 mg/dL [facility] Comment: Supplemental ranges: <140 mg/dL before meals <180 mg/dL all other times of the day Blood specimen (specimen) 01/08/2014 2:21 PM EDT 01/08/2014 2:21 PM EDT Kenia Bauman MD POINT OF CARE TEST O [place] Performing Organization Address [facility] de Phone Number [facility] * (ABNORMAL) POCT Glucose (01/08/2014 12:04 PM EDT) Glucose, POC 240(H) 60 - 199 mg/dL [facility] Comment: Supplemental ranges: <140 mg/dL before meals <180 mg/dL all other times of the day Blood specimen (specimen) 01/08/2014 12:04 PM EDT 01/08/2014 12:04 PM EDT Kenia Bauman MD POINT OF CARE TEST O RDERABLES Performing Organization Address City/[facility]/ZIP Co de Phone Number [facility] * POCT Glucose (01/08/2014 7:56 AM EDT) Glucose, POC 125 60 - 199 mg/dL [facility] Comment: Supplemental ranges: <140 mg/dL before meals <180 mg/dL all other times of the day Blood specimen (specimen) 01/08/2014 7:56 AM EDT 01/08/2014 7:56 AM EDT Kenia Bauman MD POINT OF CARE TEST O RDERABLES Performing Organization Address [facility] Co de Phone Number MONICA PERALTA * (ABNORMAL) Magnesium (01/08/2014 7:03 AM EDT) Pathologist [facility] Magnesium 0.58(L) 0.69 - 1.07 mmol/L [facility] Blood specimen (specimen) 01/08/2014 7:03 AM EDT 01/08/2014 7:09 AM EDT Narrative Resulting Agency Comment Spec In Lab Kenia Bauman MD CHEMISTRY ORDERABLES Performing Organization Address [facility] de Phone Number MONICA BENITEZIUM * Differential, Automated (01/08/2014 7:03 AM EDT) Neutrophil % 46.8 34.0 - 71.0 % [facility] MILLENNIUM Neutrophil Absolute 3.53 1.50 - 6.30 [...] intervals supplied above were not validated at [facility]. Results from pediatric patients should be interpreted [...] the following links into your internet browser. [email or web address] Blood specimen (specimen) 01/08/2014 7:03 AM EDT 01/08/2014 7:08 AM EDT Narrative Resulting Agency Comment Spec In Lab Kenia Bauman MD CHEMISTRY ORDERABLES Performing Organization Address [facility] de Phone Number [facility] * (ABNORMAL) POCT Glucose (01/08/2014 3:55 AM EDT) Glucose, POC 219(H) 60 - 199 mg/dL [facility] Comment: Supplemental ranges: <140 mg/dL before meals <180 mg/dL all other times of the day Blood specimen (specimen) 01/08/2014 3:55 AM EDT 01/08/2014 3:55 AM EDT Kenia Bauman MD POINT OF CARE TEST O RDERABLES Performing Organization Address [facility] de Phone Number [facility] * POCT Glucose (01/07/2014 11:51 PM EDT) Glucose, POC 153 60 - 199 mg/dL [facility] Comment: Supplemental ranges: <140 mg/dL before meals <180 mg/dL all other times of the day Blood specimen (specimen) 01/07/2014 11:51 PM EDT 01/07/2014 11:51 PM EDT Kenia Bauman MD POINT OF CARE TEST O RDERABLES Performing Organization Address [facility] de Phone Number [facility] * POCT Glucose (01/07/2014 9:32 PM EDT) Glucose, POC 190 60 - 199 mg/dL [facility] Comment: Supplemental ranges: <140 mg/dL before meals <180 mg/dL all other times of the day Blood specimen (specimen) 01/07/2014 9:32 PM EDT 01/07/2014 9:32 PM EDT Kenia Bauman MD POINT OF CARE TEST O RDERABLES Performing Organization Address [facility] de Phone Number [facility] BENITEZIUM * (ABNORMAL) POCT Glucose (01/07/2014 7:36 PM EDT) Glucose, POC 223(H) 60 - 199 mg/dL [facility] Comment: Supplemental ranges: <140 mg/dL before meals <180 mg/dL all other times of the day Blood specimen (specimen) 01/07/2014 7:36 PM EDT 01/07/2014 7:36 PM EDT Kenia Bauman MD POINT OF CARE TEST O [place] Performing Organization Address [facility] de Phone Number [facility] BENITEZIUM * POCT Glucose (01/07/2014 5:32 PM EDT) Glucose, POC 180 60 - 199 mg/dL [facility] Comment: Supplemental ranges: <140 mg/dL before meals <180 mg/dL all other times of the day Blood specimen (specimen) 01/07/2014 5:32 PM EDT 01/07/2014 5:32 PM EDT Kenia Bauman MD POINT OF CARE TEST O RDERALOREE Performing Organization Address [facility] de Phone Number [facility] BENITEZIUM * (ABNORMAL) POCT Glucose (01/07/2014 1:24 PM EDT) Glucose, POC 240(H) 60 - 199 mg/dL [facility] Comment: Supplemental ranges: <140 mg/dL before meals <180 mg/dL all other times of the day Blood specimen (specimen) 01/07/2014 1:24 PM EDT 01/07/2014 1:24 PM EDT Kenia Bauman MD POINT OF CARE TEST O RDERABLES Performing Organization Address [facility] Co de Phone Number [facility] * (ABNORMAL) Magnesium (01/07/2014 10:00 AM EDT) Magnesium 0.66(L) 0.69 - 1.07 mmol/L [facility] Blood specimen (specimen) 01/07/2014 10:00 AM EDT 01/07/2014 10:17 AM EDT Narrative Resulting Agency Comment Spec In Lab Kenia Bauman MD CHEMISTRY ORDERABLES Performing Organization Address [facility] de Phone Number [facility] * Potassium (01/07/2014 10:00 AM EDT) Potassium 4.3 3.5 - 5.0 mmol/L [facility] Comment: Please note: ??Patients with WBC >100,000 [...] CHEMISTRY ORDERABLES Performing Organization Address [facility] de Phone Number [facility] * POCT Glucose (01/07/2014 9:23 AM EDT) Glucose, POC 178 60 - 199 mg/dL [facility] Comment: Supplemental ranges: <140 mg/dL before meals <180 mg/dL all other times of the day Blood specimen (specimen) 01/07/2014 9:23 AM EDT 01/07/2014 9:23 AM EDT Kenia Bauman MD POINT OF CARE TEST O RDERABLES Performing Organization Address [facility] de Phone Number [facility] * Differential, Automated (01/07/2014 3:40 AM EDT) [...] ORDERABLE S Performing Organization Address [facility] Co de Phone Number [facility] MILLENNIUM * (ABNORMAL) Magnesium (01/07/2014 3:40 AM EDT) Pathologist [facility] Magnesium 0.61(L) 0.69 - 1.07 mmol/L CERNER MILLENNIUM Blood specimen (specimen) 01/07/2014 3:40 AM EDT 01/07/2014 3:43 AM EDT Narrative Resulting Agency Comment Spec In Lab Kenia Bauman MD CHEMISTRY ORDERABLES Performing Organization Address [facility] Co de Phone Number [facility] MILLENNIUM * (ABNORMAL) Basic Metabolic Panel (non-fasting) (01/07/2014 3:40 AM EDT) Glucose 93 60 - 199 mg/dL CERNER MILLENNIUM Comment:Diabetes: >=200 mg/d L plus symptoms Blood Urea Nitrogen 20 10 - 20 mg/dL CERNER MILLENNIUM Creatinine 0.81 0.80 - 1.50 mg/dL CERNER MILLENNIUM Comment: Please note that the pediatric reference intervals supplied above were not validated at [facility]. Results from pediatric patients should be interpreted [...] the following links into your internet browser. [email or web address] Blood specimen (specimen) 01/07/2014 3:40 AM EDT 01/07/2014 3:43 AM EDT Narrative Resulting Agency Comment Spec In Lab Kenia Bauman MD CHEMISTRY ORDERABLES [facility] * POCT Glucose (01/07/2014 3:39 AM EDT) [facility] Signature Glucose, POC 95 60 - 199 mg/dL CERNER MILLENNIUM Comment: Supplemental ranges: <140 mg/dL before meals <180 mg/dL all other times of the day Blood specimen (specimen) 01/07/2014 3:39 AM EDT 01/07/2014 3:39 AM EDT Kenia Bauman MD POINT OF CARE TEST O RDERALOREE Performing Organization Address [facility]/ZIP Co de Phone Number [facility] * POCT Glucose (01/06/2014 11:40 PM EDT) Glucose, POC 130 60 - 199 mg/dL [facility] Comment: Supplemental ranges: <140 mg/dL before meals <180 mg/dL all other times of the day Blood specimen (specimen) 01/06/2014 11:40 PM EDT 01/06/2014 11:40 PM EDT Kenia Bauman MD POINT OF CARE TEST O RDMARY Performing Organization Address [facility] de Phone Number [facility] * POCT Glucose (01/06/2014 9:23 PM EDT) Glucose, POC 173 60 - 199 mg/dL [facility] Comment: Supplemental ranges: <140 mg/dL before meals <180 mg/dL all other times of the day Blood specimen (specimen) 01/06/2014 9:23 PM EDT 01/06/2014 9:23 PM EDT Kenia Bauman MD POINT OF CARE TEST O RDMARY Performing Organization Address [facility] Co de Phone Number [facility] * POCT Glucose (01/06/2014 6:42 PM EDT) Glucose, POC 125 60 - 199 mg/dL [facility] Comment: Supplemental ranges: <140 mg/dL before meals <180 mg/dL all other times of the day Blood specimen (specimen) 01/06/2014 6:42 PM EDT 01/06/2014 6:42 PM EDT Kenia Bauman MD POINT OF CARE TEST O RDERABLES Performing Organization Address [facility]/ZIP Co de Phone Number [facility] * Electrophysiology Procedure (01/06/2014 5:20 PM [...] Modality Other Narrative 01/09/2014 7:14 AM EDT ?[facility] ? Cardiac Catheterization/Intervention Report ? Patient Name: Pamela, Shahnaz ? Procedure Date: 01/06/2014 ? A #: [id number] ? Primary Physician: [place], Jaron W. ? Case #: [id number] ? File Name: [id number] ? Catheterization Order Number: [id number] ? [facility] ? Final Report [place], [place] ? Patient Name: ? Shahnaz Santiago ? ID#: ?[id number] ? : ?1950 ? Procedure Date: ? January 06, 2014 ? Case #: ? [id number]- [id number] ? Room: ? 1 ? Case Physician: ? Jaron Jarquin M.D. ? Start: ?14:40 ?Fellow: ? Jennifer Nguyen [facility], ?Admission: ??01/06/2014 ?M.D. ? Referring Physician: ??Jennifer Haro M.D. ? Procedures: ?* Coronary Angiography ?* Left Heart Catheterization ?* Coronary Flow [place] Measurement ?* Coronary Instantaneous Wave-Free Ratio ?* Vascular Closure Device Deployment ?* Access Site Angiography ? History ?Shahnaz Gobrick is a 63 year old man. He [...] Note Jaron Jarquin II, MD - 01/09/2014 [facility] Cardiac Catheterization/Intervention Report Patient Name: Shahnaz Santiago Procedure Date: 01/06/2014 A #: [id number] Primary Physician: Jaron Jarquin Case #: File Name: [id number] Catheterization Order Number: [id number] [facility] FinalReport [place], [place] Patient Name: Shahnaz Santiago ID#:[id number] :1950 Procedure Date: January 06, 2014 Case #: Room: 1 Case Physician: Jaron Jarquin M.D. Start: 14:40 Fellow: Jennifer Argueta, Admission:01/06/2014 [place] Referring Physician: Jennifer Haro M.D. Procedures: * Coronary Angiography * Left Heart Catheterization * Coronary Flow [place] Measurement * Coronary Instantaneous Wave-Free Ratio * [...] Jaron Jarquin M.D. Report Finalized: 01/06/2014 16:11 eKnia Bauman MD CARDIAC CATH ORDERAB LES * (ABNORMAL) Cardiac Enzymes (01/06/2014 12:40 PM EDT) [facility] Troponin-T 0.10(H) <=0.03 ng/mL MONICA LYYNZINA Comment: 0.03 ng/mL: Represents the 99th percentile upper reference limit for normals. >0.03 ng/mL: Elevated cardiac troponin T level indicative of myocardial damage. Diagnosis of acute, evolving or recent MT requires a typical rise and gradual fall [...] consensus document of the Joint Society of Cardiology/[place] [employer] Committee for the redefinition of myocardial infarction. ??Journal of the [place] College [employer] 2000; 36: 959-969] Creatine Kinase 127 0 - 200 unit/L [facility] LYYNZINA Blood specimen (specimen) 01/06/2014 12:40 PM EDT 01/06/2014 12:52 PM EDT Narrative Resulting Agency Comment Spec In Lab Kenia Bauman MD CHEMISTRY ORDERABLES [facility] * POCT Glucose (01/06/2014 12:15 PM EDT) [facility] Glucose, POC 165 60 - 199 mg/dL [facility] Comment: Supplemental ranges: <140 mg/dL before meals <180 mg/dL all other times of the day Blood specimen (specimen) 01/06/2014 12:15 PM EDT 01/06/2014 12:15 PM EDT Kenia Bauman MD POINT OF CARE TEST O RDERABLES Performing Organization Address [facility] Co de Phone Number MONICA PERALTA * Cardiac Enzymes (01/06/2014 11:30 AM EDT) Troponin-T Not Perf <=0.03 ng/mL [facility] Comment: Unable to quantitate due to sample hemolysis. ??Sample redraw suggested. Called Maximiliano, 01/06/14 12:30, blr 0.03 ng/mL: Represents the 99th percentile upper reference limit for normals. >0.03 ng/mL: Elevated cardiac troponin T level indicative of myocardial damage. Diagnosis of acute, evolving or recent MT requires a typical rise and gradual fall [...] consensus document of the Joint Society of Cardiology/[place] [employer] Committee for the redefinition of myocardial infarction. ??Journal of the [place] College [employer]iology 2000; 36: 959-969] Creatine Kinase 132 0 - 200 unit/L [facility] Blood specimen (specimen) 01/06/2014 11:30 AM EDT 01/06/2014 11:45 AM EDT Narrative Resulting Agency Comment Spec In Lab Kenia Bauman MD CHEMISTRY ORDERABLES Performing Organization Address [facility] Co de Phone Number MONICA PERALTA * (ABNORMAL) APTT (01/06/2014 11:30 AM EDT) Partial Thromboplastin Time 48(H) 25 - 35 sec [facility] Comment: Recommended therapeutic PTT range for full dose unfractionated heparin is 80-114 seconds. Blood specimen (specimen) 01/06/2014 11:30 AM EDT 01/06/2014 11:45 AM EDT Narrative Resulting Agency Comment Spec In Lab Kenia Bauman MD HEMATOLOGY ORDERABLE S Performing Organization Address [facility] de Phone Number [facility] * LDL Cholesterol, Direct (01/06/2014 11:30 AM EDT) LDL Cholesterol, Direct 13 <=99 mg/dL [facility] Comment: The National Cholesterol Education Program (NCEP) has set the following guidelines for LDL Cholesterol: Reference range: ?? Optimal: ?<100 mg/dL ?? Near Optimal/Above Optimal: ?? 100-129 mg/dL ?? Borderline high: ?130-159 mg/dL ?? High: ? 160-189 mg/dL ?? Very high: ?>lq=140 mg/dL TATI 2001: 285(19):4490-6975 Blood specimen (specimen) 01/06/2014 11:30 AM EDT 01/06/2014 11:45 AM EDT Narrative Resulting Agency Comment Spec In Lab Kenia Bauman MD CHEMISTRY ORDERABLES Performing Organization Address [facility] de Phone Number [facility] * Echocardiogram Transthoracic(Leb) (01/06/2014 10:29 AM EDT) EF 56 HEARTLAB SYSTEM Anatomical Region Laterality Modality Other 01/06/2014 Narrative 01/06/2014 10:41 AM EDT Procedure: ? Transthoracic Echocardiogram Patient: ? PAMELA Gordon ? (Age): 1950(63) Med Rec#: ?[id number] ? Sex: ?M ? Site Loc: ?[facility] ? Ht / Wt: ??185(cm)/92(kg) Pt. Loc: ? CCU ?BSA: ?2.17 Study Date: ?01/06/2014 ? Pt. Type: Inpatient Tape: ? Referring: Kenia Bauman ([id number]) Referring: BRUCE Child Welfare Social Worker: Jodie Givens Diagnosis:CPT Code(s): ??Echo Full (04479), ??Spectral Doppler (69009), Color Doppler (97528), Indication(s): ??Tachycardia Rhythm: HR ?BP ?114/63 ?? [...] ? Mid-Inferior ?Normal ? Mid-Inferoseptal ?Normal ? Jaroso-Septal ? Normal ? Jaroso-Anterior ? Normal ? Jaroso-Lateral ?Normal ? Jaroso-Inferior ? Normal ? Jaroso-Tip ?Normal ? Chambers ?Value ?Units (Range) ? [...] 10:41:12 Images reviewed and interpretation verified [facility] Cardiac Ultrasound Laboratory Procedure Note Warren Atkinson MD - 01/06/2014 Procedure: Transthoracic Echocardiogram Patient: PAMELA Gordon (Age): 1950(63) Med Rec#: [id number] Sex: M Site Loc: [facility] Ht / Wt: 185(cm)/92(kg) Pt. Loc: CCU BSA: 2.17 Study Date: 01/06/2014 Pt. Type: Inpatient Tape: Referring: Alexis Kenia ([id number]) Referring: DIALLOGIANCARLO Child Welfare Social Worker: Jodie Givens Diagnosis:CPT Code(s): Echo Full (64658), Spectral Doppler (76069), Color Doppler (05238), Indication(s): Tachycardia Rhythm: HR BP 114/63 SUMMARY: [...] Normal Mid-Posterolateral Normal Mid-Inferior Normal Mid-Inferoseptal Normal Jaroso-Septal Normal Jaroso-Anterior Normal Jaroso-Lateral Normal Jaroso-Inferior Normal Jaroso-Tip Normal Chambers Value Units (Range) EF Bi-p [...] 10:41:12 Images reviewed and interpretation verified [facility] Cardiac Ultrasound [facility] Kenia Bauman MD ECHO ORDERABLES * EKG 12 Lead (01/06/2014 9:29 AM EDT) Ventricular rate 61 BPM MUSE SYSTEM Atrial Rate 61 BPM MUSE SYSTEM P-R Interval 210 ms MUSE SYSTEM QRS Duration 128 ms MUSE SYSTEM Q-T Interval 450 ms MUSE SYSTEM QTC Calculated (Bezet) 453 ms MUSE SYSTEM Calculated P [place] 36 degrees MUSE SYSTEM Calculated R [place] -51 degrees MUSE SYSTEM Calculated T [place] -62 degrees MUSE SYSTEM INTERPRETATION Sinus rhythm [...] Bauman MD ECG ORDERABLES Performing Organization Address City/[facility]/ZIP Co de Phone Number MUSE SYSTEM * POCT Glucose (01/06/2014 8:28 AM EDT) [facility] Glucose, POC 104 60 - 199 mg/dL [facility] Comment: Supplemental ranges: <140 mg/dL before meals <180 mg/dL all other times of the day Blood specimen (specimen) 01/06/2014 8:28 AM EDT 01/06/2014 8:28 AM EDT Kenia Bauman MD POINT OF CARE TEST O RDERABLES Performing Organization Address City/[facility]/ZIP Co de Phone Number [employer] * XR chest routine PA & lateral [...] Bauman MD URINE ORDERABLES Performing Organization Address City/[facility] Co de Phone Number [facility] MILLENNIUM * Sodium, urine, random (01/06/2014 3:06 [...] Urine Dipstick Hazy(A) Clear CERNER MILLENNIUM Specific [place] Urine Automated 1.019 1.002 - 1.030 CERNER [...] Bauman MD URINE ORDERABLES Performing Organization Address [facility]/ZIP Co de Phone Number CERNER MILLENNIUM * (ABNORMAL) Cardiac Enzymes (01/06/2014 2:50 AM EDT) Pathologist [facility] Troponin-T 0.05(H) <=0.03 ng/mL [facility] MILLENNIUM Comment: 0.03 ng/mL: Represents the 99th percentile upper reference limit for normals. >0.03 ng/mL: Elevated cardiac troponin T level indicative of myocardial damage. Diagnosis of acute, evolving or recent MT requires a typical rise and gradual fall [...] consensus document of the Joint Society of Cardiology/[place] College of Cardiology Committee for the redefinition of myocardial infarction. ??Journal of the [place] College of Cardiology 2000; 36: 959-969] Creatine Kinase 101 0 - 200 unit/L [facility] MILLENNIUM Blood specimen (specimen) 01/06/2014 2:50 AM EDT 01/06/2014 2:59 AM EDT Narrative Resulting Agency Comment Spec In Lab Kenia Bauman MD CHEMISTRY ORDERABLES [facility] * (ABNORMAL) Differential, Automated (01/06/2014 2:50 AM EDT) Pathologist [facility] Neutrophil % 62.9 34.0 - 71.0 % [...] Platelet Volume 10.0 9.0 - 12.0 fL [facility] MILL[facility] Blood specimen (specimen) 01/06/2014 2:50 AM EDT 01/06/2014 2:58 AM EDT Narrative Resulting Agency Comment Spec In Lab Kenia Bauman MD HEMATOLOGY ORDERABLE S Performing Organization Address [facility] de Phone Number [facility] * (ABNORMAL) Magnesium (01/06/2014 2:50 AM EDT) Magnesium 0.67(L) 0.69 - 1.07 mmol/L [facility] Blood specimen (specimen) 01/06/2014 2:50 AM EDT 01/06/2014 2:58 AM EDT Narrative Resulting Agency Comment Spec In Lab Kenia Bauman MD CHEMISTRY ORDERABLES Performing Organization Address [facility] de Phone Number [facility] * (ABNORMAL) Lipid panel (fasting) (01/06/2014 2:50 AM EDT) Cholesterol, Total 55 <=199 mg/dL [facility] Comment: Recommendations of the NCEP Adult Treatment Panel for the following risk cutoff thresholds for the [place] population: Desirable: <200 mg/dL Borderline High: 200-239 mg/dL High: > or = 240 mg/dL Triglyceride 148 <=149 mg/dL [facility] Comment: Reference Range: Normal triglycerides: ??<150 mg/dL Borderline high: ??150-199 mg/dL High: ??200-499 mg/dL Very high: ??>dq=481 mg/dL TATI 2001; 285(19):9774-6773 HDL Cholesterol 26(L) >=40 mg/dL [facility] Comment: Reference range: ??Low HDL: ?? < 40 mg/dL ??Normal: ?40-60 mg/dL ??Desirable: > 60 mg/dL TATI 2001; 285(19):0570-8899 LDL Cholesterol -1 <=99 mg/dL CER NER MILLENNIUM Comment: Reference range: ?? Optimal: ?<100 mg/dL ?? Near Optimal/Above Optimal: ?? 100-129 mg/dL ?? Borderline high: ?130-159 mg/dL ?? High: ? 160-189 mg/dL ?? Very high: ?>vr=513 mg/dL TATI 2001: 285(19):4520-2181 Cholesterol/HDL Ratio 2.1 ratio CERNER MILLENNIUM Comment: A Cholesterol to HDL ratio below 4:1 is desirable. ??Studies suggest that increased CAD risk occurs at ratios above 5 for females and above 6 for men. ? [place] Heart Association ??(http://www.americanheart.org) ? Yenny Int Med, 1994; 121:641 ? AM J Med, 1998; 105(1A):48S Blood specimen (specimen) 01/06/2014 2:50 AM EDT 01/06/2014 2:58 AM EDT Narrative Resulting Agency Comment Spec In Lab Kenia Bauman MD CHEMISTRY ORDERABLES [facility] * (ABNORMAL) Basic Metabolic Panel (non-fasting) (01/06/2014 2:50 AM EDT) [facility] Glucose 107 60 - 199 mg/dL [facility] MILLENNIUM Comment:Diabetes: >=200 mg/d L plus symptoms Blood Urea Nitrogen 31(H) 10 - 20 mg/dL CERNER MILLENNIUM Creatinine 1.41 0.80 - 1.50 mg/dL [facility] MILLENNIUM Comment: Please note that the pediatric reference intervals supplied above were not validated at [facility]. Results from pediatric patients should be interpreted [...] the following links into your internet browser. [email or web address] Blood specimen (specimen) 01/06/2014 2:50 AM EDT 01/06/2014 2:58 AM EDT Narrative Resulting Agency Comment Spec In Lab Kenia Bauman MD CHEMISTRY ORDERABLES [facility]ICA BENITEZIUM * EKG 12 Lead (01/06/2014 2:01 AM EDT) Ventricular rate 69 BPM MUSE SYSTEM Atrial Rate 69 BPM MUSE SYSTEM P-R Interval 212 ms MUSE SYSTEM QRS Duration 126 ms MUSE SYSTEM Q-T Interval 416 ms MUSE SYSTEM QTC Calculated (Bezet) 445 ms MUSE SYSTEM Calculated P [place] 18 degrees MUSE SYSTEM Calculated R [place] -55 degrees MUSE SYSTEM Calculated T [place] -70 degrees MUSE SYSTEM INTERPRETATION Sinus rhythm [...] to induce or maintain moderate sedation per [facility] Moderate Sedation Protocol, Not to exceed 50 [...] to induce or maintain moderate sedation per [facility] Moderate Sedation Protocol, Not to exceed 50 [...] than 145 sec times 2 - call clearing house clerk See Bolus dosing guidance for aPTT values [...] to induce or maintain moderate sedation per [facility] Moderate Sedation Protocol, Not to exceed 1 [...] to induce or maintain moderate sedation per [facility] Moderate Sedation Protocol, Not to exceed 1 [...] Prophylaxis 2105 (Given - Provider: Yamile Raya, NAHUN) 0558 (Given - Provider: Yamile Raya RN)1201 [...] Raya RN) 1300 (Not Given - Provider: Loranie Saldivar RN - Reason: Contraindicated) 0351 (Given [...] to induce or maintain moderate sedation per [facility] Moderate Sedation Protocol, Not to exceed 50 [...] to induce or maintain moderate sedation per [facility] Moderate Sedation Protocol, Not to exceed 1 [...] s/p pacer)2008 (Given - Provider: Yamile Raya, NAHUN) 0003 (Given - Provider: Yamile Raya RN)0351 (Given - Provider: Yamile Raya RN)0848 (Given - Provider: Ervin Fontaine, NAHUN)1332 (Given - Provider: Ervin Fontaine, NAHUN) zolpidem (AMBIEN) tablet 10 mg (CANCELED) 10 mg, Oral, NIGHTLY PRN, Starting on Thu01/06/14 at 0258, Until Thu01/11/14 at 1539, Sleep, Routine 0012 (Given - Provider: Teresita Lozano, NAHUN)2348 (Given - Provider: Yamile Raya, RN) 0002 (Given - Provider: Yamile Raya, NAHUN) documented in this encounter Care Teams Technical Developer Relationship Specialty Start Date End Date Jennifer Haro MD PCP - General 01/07/12 01/30/14 documented as of this encounter
--- OUTSIDE RECORDS SUMMARY | 2024-05-24 14:32 | XMS_ITS | Encounter Summary ---
Author Organization Formerly [facility] [place] [address] Care Team Providers Care Hi Teacher Name Role Phone Ángel Bingham MD Primary Care Provider [phone] Encounter Details Date Type Department Care Team (Latest Contact Info) Description 01/31/2014 10:40 AM EDT Office Visit Cardiology at [address] [address] Kti Self MD [facility] [place] [address] ASCVD (arteriosclerotic cardiovascular disease); Sustained ventricular tachycardia [...] original note were not included. [facility] [place] [address] CARDIOLOGY OUTPATIENT FOLLOW-UP NOTE Marquez Hendrix [id number] PCP: ÁNGEL BINGHAM MD 01/31/2014 PRIMARY CARE PROVIDER: ÁNGEL BINGHAM MD PROBLEM LIST: Patient Active Problem List Diagnosis ??? ASCVD (arteriosclerotic cardiovascular disease) ?? Heart catheterization in [facility] in 2007 with placement of a stent in an unspecified vessel ?? Repeat heart catheterization in 2008 with placement of stents to both the LAD and circumflex ?? Followup heart catheterization in 2008 showing stable results in both vessels ?? Her current chest discomfort in a somewhat atypical pattern beginning fall ?? Nuclear stress test at [facility] in [place], [place] May 02, 2013 during which he developed left shoulder and arm discomfort during submaximal exercise on the treadmill and after which he was converted to a pharmacologic test; nuclear imaging showed ejection fraction of 45% with a partially reversible inferior defect ?? Cath [facility] 05/13/2013: normal left main, mild diffuse disease throughout the LAD with an 80% mid stenosis representing a restenosis lesion, mild diffuse disease in the proximal obtuse marginal branch, and mild diffuse disease throughout the right coronary artery; status post 3.0 X 12 mm JON to 80%mid-LAD lesion (in-stent restenosis) ?? Heart catheterization [facility] January 06, 2014 showing normal left main, hazy 50% mid LAD stenosis, mild diffuse disease throughout the circumflex, and moderate diffuse disease in the proximal RCA with a totally occluded distal RCA with brisk flow via bridging collaterals; fractional flow reserveon the LAD 0.85 ??? ICD (implantable cardioverter-defibrillator), dual, in situ Ventricular electrode: [place] [employer] [place] Model# 0292 Serial# [id number] Bipolar, steroid-tipped, active-fixation, single coil DF-4 lead Access: Left axillary vein Location: RV apex R wave, ICD: 9.6 mV Pacing threshold, ICD: 0.6 V at 0.5 ms Impedance, ICD: 913 ohms (74 ohms for shock vector) Pace the diaphragm at 10 V: No Atrial electrode: [employer] Dextrus Model# 4136 Serial# [id number] Bipolar, steroid-tipped, active-fixation IS-1 lead Access: Left axillary vein Location Right atrial appendage P wave, ICD: 4.3 mV Pacing threshold, pacemaker: 1.7 V at 0.5 ms Impedance, pacemaker: 538 ohms Pace the diaphragm at 10 V: No Pulse generator: [employer] Incepta Model# E162 Serial# [id number] DDDR ICD Location: Subcutaneous Defibrillation testing was [...] 2 times daily. 90 tablet 6 ??? [place]-3 Fatty Acids (FISH OIL) 500 mg Cap Take by mouth daily. ??? multivitamin capsule Take 1 capsule by mouth daily. ??? LANCETS MISC by Misc.(Non-Drug; Combo Route) route. ??? lamotrigine (LAMICTAL) 100 mg tablet Take 100 mg by mouth daily. ??? alprazolam (XANAX XR) 3 mg 24 hr tablet Take 3 mg by mouth every morning. ? ? lactobac cmb #[id number] (PROBIOTIC & ACIDOPHILUS) 300-250 million cell- mg [...] while taking a hike. He presented to [facility] where he was found to bein ventricular tachycardia with a heart rate in the 160s and a borderline low blood pressure 108/64. He was sedated and cardioverted successfully. Unfortunately, he remembers the shock. He was transferred to [facility] where his evaluation included an echocardiogram which [...] Hospital Encounter Non[place] [address] Arrived 08/09/2024 10:00 AM EDT Hospital Encounter Non[place] [address] Arrived documented as of this encounter Visit Diagnoses Diagnosis ASCVD (arteriosclerotic cardiovascular disease) Unspecified cardiovascular disease Sustained ventricular tachycardia Paroxysmal ventricular tachycardia documented in this encounter Care Teams Hi Teacher Relationship Specialty Start Date End Date Ángel Bingham MD [facility] [address] [place] [address] PCP - General 01/31/14 09/01/16 documented as of this encounter
--- OUTSIDE RECORDS SUMMARY | 2024-05-24 14:32 | XMS_ITS | Encounter Summary ---
Author Organization [facility] [place] [address] Care Team Providers Care Electric Solderer Name Role Phone Ángel Bingham MD Primary Care Provider Encounter Details Date Type Department Care Team (Late st Contact Info) Description 02/11/2014 Orders Only Cardiology at [address] [phone] Social History Tobacco Use Types Packs/Day Years [...] AM EST Hospital Encounter Non-Invasive [place] [address] Arrived 08/09/2024 10:00 AM EDT Hospital Encounter Non-Invasive [place] [address] Arrived documented as of this encounter Procedures Procedure Name Priority Date/Time Associated Diagnosis Comments CARDIAC DEVICE CHECK - REMOTE PATIENT INITIATED Routine 02/11/2014 11:56 AM EDT documented in this encounter Results * Cardiac device check - Remote Patient Initiated (02/11/2014 11:56 AM EDT) Date Time Interrogation Session [id number] IDCO Type Interrogation Session Remote Patient Initiated IDCO Clinic Name [facility] IDCO Battery Date Time of Measurements [id number] IDCO Battery Status Beginning of Service IDCO Battery Remaining Longevity 126 mo IDCO Battery Remaining Percentage 100 % IDCO Capacitor Last Charge Date Time [id number] IDCO Capacitor Charge Time 9.7 s IDCO Capacitor Charge Type Reformation IDCO Episode Identifier APM-1 IDCO Episode Date Time [id number] IDCO Episode Type Category Periodic EGM IDCO Episode Vendor Type Category APMRT IDCO Episode Detection And Therapy Details Presenting EGM IDCO Episode Identifier [id number] IDCO Episode Date Time [id number] IDCO Episode Type Category Other IDCO Episode Vendor Type Category XANDER IDCO Episode Detection Interval Ventricular 1,304 ms IDCO Episode Duration 52 s IDCO Episode Detection And Therapy Details IDCO Episode Identifier IDCO Episode Date Time [id number] IDCO Episode Type Category Other IDCO Episode Vendor Type Category XANDER IDCO Episode Detection Interval Ventricular 845 ms IDCO Episode Duration 46 s IDCO Episode Detection And Therapy Details IDCO Episode Identifier IDCO Episode Date Time [id number] IDCO Episode Type Category Other IDCO Episode Vendor Type Category XANDER IDCO Episode Detection Interval Ventricular 1,000 ms IDCO Episode Duration 60 s IDCO Episode Detection And Therapy Details IDCO Episode Identifier IDCO Episode Date Time [id number] IDCO Episode Type Category Other IDCO Episode Vendor Type Category XANDER IDCO Episode Detection Interval Ventricular 938 ms IDCO Episode Duration 56 s IDCO Episode Detection And Therapy Details IDCO Episode Identifier IDCO Episode Date Time [id number] IDCO Episode Type Category Other IDCO Episode Vendor Type Category XANDER IDCO Episode Detection Interval Ventricular 909 ms IDCO Episode Duration 208 s IDCO Episode Detection And Therapy Details IDCO Episode Identifier Q IDCO Episode Date Time [id number] IDCO Episode Type Category Other IDCO Episode Vendor Type Category XANDER IDCO Episode Detection Interval Ventricular 984 ms IDCO Episode Duration 59 s IDCO Episode Detection And Therapy Details RYQ IDCO Episode Identifier [id number] IDCO Episode Date Time [id number] IDCO Episode Type Category Other IDCO Episode Vendor Type Category XANDER IDCO Episode Detection Interval Ventricular 896 ms IDCO Episode Duration 271 s IDCO Episode Detection And Therapy Details Q IDCO Episode Identifier [id number] IDCO Episode Date Time [id number] IDCO Episode Type Category Other IDCO Episode Vendor Type Category XANDER IDCO Episode Detection Interval Ventricular 882 ms IDCO Episode Duration 52 s IDCO Episode Detection And Therapy Details Q IDCO Episode Identifier [id number] IDCO Episode Date Time [id number] IDCO Episode Type Category Other IDCO Episode Vendor Type Category XANDER IDCO Episode Detection Interval Ventricular 938 ms IDCO Episode Duration 55 s IDCO Episode Detection And Therapy Details Q IDCO Episode Identifier RYQ IDCO Episode Date Time [id number] IDCO Episode Type Category Other IDCO Episode Vendor Type Category XANDER IDCO Episode Detection Interval Ventricular 968 ms IDCO Episode Duration 57 s IDCO Episode Detection And Therapy Details Q IDCO Episode Identifier V-1 IDCO Episode Date Time [id number] IDCO Episode Type Category VF IDCO Episode [...] Setting PAV Delay High 180 ms IDCO Ablaro Setting PAV Delay Low 80 ms IDCO [...] E162 IDCO Implantable Pulse Generator Serial Number [id number] IDCO Implantable Pulse Generator Truck Repair Supervisor [employer] IDCO Implantable Pulse Generator Implant Date 20140110 IDCO Implantable Lead Model 4136 IDCO Implantable Lead Serial Number [id number] IDCO Implantable Lead Truck Repair Supervisor Guidant IDCO Implantable Lead Implant Date IDCO Implantable Lead Polarity Type Bipolar Lead IDCO Implantable Lead Location Right Atrium IDCO Implantable Lead Model 0292 IDCO Implantable Lead Serial Number [id number] IDCO Implantable Lead Truck Repair Supervisor [employer] IDCO Implantable Lead Implant Date IDCO [...] IDCO Lead Channel Pacing Threshold Measurement Method [facility] IDCO Lead Channel Pacing Threshold Polarity [...] IDCO Lead Channel Pacing Threshold Measurement Method [facility] Manual IDCO Lead Channel Pacing Threshold Polarity [...] on filedocumented in this encounter Care Teams Electric Solderer Relationship Specialty Start Date End Date Ángel Bingham MD [facility] [address] [place] [address] PCP - General 01/31/14 09/01/16 documented as of this encounter
--- OUTSIDE RECORDS SUMMARY | 2024-05-24 14:32 | XMS_ITS | Encounter Summary ---
Author Organization [facility] [place] [address] Care Team Providers Care Hand Scraper Name Role Phone Ángel Bingham MD Primary Care Provider [phone] Encounter Details Date Type Department Care Team (Late st Contact Info) Description 04/10/2014 Orders Only Cardiology at [address] [phone] Edy Torres, PA [facility] [place] [address] Pacemaker lead failure, initial encounter Social History [...] AM EST Hospital Encounter [place] [phone] Arrived 08/09/2024 10:00 AM EDT Hospital Encounter [place] [phone] Arrived documented as of this encounter Results [...] dislodged. No other intervalfindings. Lars Hernandez DO [facility] DX ORDERABLES documented in this encounter Visit Diagnoses Diagnosis Pacemaker lead failure, initial encounter Pacemaker lead failure, initial encounter documented in this encounter Care Teams Hand Scraper Relationship Specialty Start Date End Date Ángel Bingham MD [facility] [address] [place] [address] PCP - General 01/31/14 09/01/16 documented as of this encounter
--- OUTSIDE RECORDS SUMMARY | 2024-05-24 14:32 | XMS_ITS | Encounter Summary ---
Author Organization [facility] Address [facility] [place] [address] Care Team Providers Care Textiles Printer Name Role Phone Ángel Bingham MD Primary Care Provider [phone] Encounter Details Date Type Department Care Team (Latest Contact Info) Description 04/10/2014 10:17 AM EST - 04/10/2014 11:59 PM [facility] Hospital Encounter XRay at [address] [place] [address] Pacemaker lead failure, initial encounter Social History [...] times daily. 90 tablet 6 05/14/2013 01/27/2017 Voca-3 Fatty Acids (FISH OIL) 500 mg Cap Take by mouth daily. 01/14/2016 lamotrigine (LAMICTAL) 100 mg tablet Take 200 mg by mouth daily. 09/01/2018 alprazolam (XANAX XR) 3 mg 24 hr tablet Take 3 mg by mouth nightly. 09/18/2020 lactobac cmb #[id number] (PROBIOTIC & ACIDOPHILUS) 300-250 million cell-mg Cap [...] AM EST Hospital Encounter [place] [address] Arrived 08/09/2024 10:00 AM EDT Hospital Encounter [place] [address] Arrived documented as of this encounter Procedures [...] encounter documented in this encounter Care Teams Textiles Printer Relationship Specialty Start Date End Date Ángel Bingham MD [facility] [address] [place] [address] PCP - General 01/31/14 09/01/16 documented as of this encounter
--- OUTSIDE RECORDS SUMMARY | 2024-05-24 14:32 | XMS_ITS | Encounter Summary ---
Author Organization [facility] [place] [address] Care Team Providers Care Insurance Marketing Specialist Name Role Phone Ángel Bingham MD Primary Care Provider [phone] Reason for Visit * Reason Onset Date Comments Medication Refill 02/03/2014 Encounter Details Date Type Department Care Team (Late st Contact Info) Description 02/03/2014 Refill Cardiology at [address] [address] Kit Self MD [facility] [place] [address] Medication Refill Social History Tobacco Use Types [...] AM EST Hospital Encounter Non[place] [phone] Arrived 08/09/2024 10:00 AM EDT Hospital Encounter Non[place] [phone] Arrived documented as of this encounter Visit Diagnoses Not on filedocumented in this encounter Care Teams Insurance Marketing Specialist Relationship Specialty Start Date End Date Ángel Bingham MD [facility] [address] [facility] [place] [address] PCP - General 01/31/14 09/01/16 documented as of this encounter
--- OUTSIDE RECORDS SUMMARY | 2024-05-24 14:32 | XMS_ITS | Encounter Summary ---
Author Organization [facility] Address [facility] [place] [address] Care Team Providers Care Quality Assurance Representative Name Role Phone Ángel Bingham MD Primary Care Provider [phone] Reason for Visit * Reason Onset Date Comments Other 03/08/2014 ? stop plavix Encounter Details Date Type Department Care Team (Late st Contact Info) Description 03/08/2014 Telephone Cardiology at [address] [address] Kit Self MD [facility] [place] [address] Other (? stop plavix) Social History Tobacco [...] call having Bilateral L4-L5 MBB done at [facility]. There is a question about Stopping medication prior to this procedure. I called the number provided by the patient and had to leave a message as they close at 4:00. I will call back tomorrow. [phone] Thank you, Daphney documented in this encounter Plan of Treatment Upcoming Encounters Date Type Department Care Team (Late st Contact Info) Description 06/15/2024 10:00 AM EST Hospital Encounter [place] [address] Arrived 08/09/2024 10:00 AM EDT Hospital Encounter [place] [address] Arrived documented as of this encounter Visit Diagnoses Not on filedocumented in this encounter Care Teams Quality Assurance Representative Relationship Specialty Start Date End Date Ángel Bingham MD [facility] [address] [place] [address] PCP - General 01/31/14 09/01/16 documented as of this encounter
--- OUTSIDE RECORDS SUMMARY | 2024-05-24 14:33 | XMS_ITS | Encounter Summary ---
Author Organization [facility] Address [facility] [place] [address] Care Team Providers Care Broach Operator Name Role Phone Jennifer Haro MD Primary Care Provider Unavaila ble Encounter Details Date Type Department Care Team (Late st Contact Info) Description 01/10/2014 3:00 PM EDT - 01/10/2014 5:00 PM EDT Surgery [place] [id number] Edy Berry MD [facility] [place] [address] ELECTROPHYSIOLOGY PROCEDURE Social History Tobacco Use Types [...] a 91 day new device check at [facility] Device [facility]. 4. Transtelephonic device [...] 8:10 AM Kit Self MD [facility] [address] [facility] Follow-Up Appointments Date and Time Provider and Specialty Location Jan 13, 2014 @ 2:[address] [facility] In[facility] Doctor: Kenia Bauman MD Your Primary Care Provider: JENNIFER HARO MD [phone] For questions regarding this document or issues relating to this hospitalization on the Medical Service, please contact your inpatient physician through the [facility] Microstrategy Reports Developer . Issues afterhours and on weekends will [...] times daily. 90 tablet 6 05/14/2013 01/27/2017 Belleview-3 Fatty Acids (FISH OIL) 500 mg Cap Take by mouth daily. 01/14/2016 lamotrigine (LAMICTAL) 100 mg tablet Take 200 mg by mouth daily. 09/01/2018 alprazolam (XANAX XR) 3 mg 24 hr tablet Take 3 mg by mouth nightly. 09/18/2020 [facility] #[id number] (PROBIOTIC & ACIDOPHILUS) 300-250 million cell-mg Cap [...] answered at this time. Patient discharged to [facility] with Daughter in stable condition. Wheelchair offered; patient elected to walk. * Edy Torres PA - 01/11/2014 12:10 PM EDT Patient Name: Shahnaz Santiago Patient Age: 63 y.o. Birthdate: 1950 Admit date: 01/06/2014 Attending Physician: Kenia Bauman MD Cardiac Electrophysiology Post-Iimplant Device Interrogation Note Shahnaz Santiago is a 63 y.o. male is POD # 1 following implant of a dual chamber, [employer] ICD for sustained ventricular tachycardia. He [...] in situ V45.02 Device data: Ventricular electrode: [employer] [place] Model# 0292 Serial# [id number] Bipolar, steroid-tipped, active-fixation, single coil DF-4 lead Access: Left axillary vein Location: RV apex R wave, ICD: 9.6 mV Pacing threshold, ICD: 0.6 V at 0.5 ms Impedance, ICD: 913 ohms (74 ohms for shock vector) Pace the diaphragm at 10 V: No Atrial electrode: [employer] Dextrus Model# 4136 Serial# [id number] Bipolar, steroid-tipped, active-fixation IS-1 lead Access: Left axillary vein Location Right atrial appendage P wave, ICD: 4.3 mV Pacing threshold, pacemaker: 1.7 V at 0.5 ms Impedance, pacemaker: 538 ohms Pace the diaphragm at 10 V: No Pulse generator: [employer] Incepta Model# E162 Serial# [id number] DDDR ICD Location: Subcutaneous Defibrillation testing was [...] ~ 91 days. Provider: MAXIMO Leija Provider#: [id number] Consult attending physician: Estefanía Cross MD * Raul Salmeron RN - 01/11/2014 8:04 AM EDT Inpatient Post ICD Implant Teaching Note Verbal teaching was performed today [id number] with the patient including the following: -Brief generalized teaching of how ICDs function, and the patient's specific indication for ICD implant -Activity restrictions post ICD implant -Remote monitoring of the ICD via telephone (patient was given [facility] Latitude communicator today). -ICD insertion site wound [...] of care and discharge planning. Nora Schaeffer DIAL MAKER CRC/Stacy Pabon MSN BSN RN CRC Office of Care Managment Pager [phone] * Yamile Raya RN - 01/10/2014 6:30 [...] One episode 7 beat run VT ~150bpm. [place] warm, needed to urinate during that time. [...] Code JORI AYALA MD Cardiology S1 (pgr. [id number]) Cardiology Attending Addendum I have interviewed and [...] in to convince him not to leave [facility] without an ICD. Will await his [...] Jennifer Harris - 01/06/2014 4:24 PM EDT Rod Filler Encounter Note Patient Name: Shahnaz Santiago : [id number] MR#: [id number] Admit Date: 01/06/2014 1:50 AM Hospital Day 0 days Narrative: Shahnaz was happy and open to food service sales representatives visit. Assessment: We had a long conversation of what he considered that has been militating against a health life-style: smoking. Moreover he was not a rastafari person based on his experiences over the years yet accepts prayers. Intervention and Outcome: We prayed for God's healing & strength. Follow-up: Yes Time in Direct Care: 35 mins Jennifer Zimmer Steven 01/06/2014 * Stacy Pabon RN - 01/06/2014 2:17 PM EDT Office of Care Management Clinical Chemical Dependency Nurse Patient Name: Shahnaz Santiago : 1950, 63 yrs Admission Date: 01/06/2014 1:50 AM Attending: Kenia Bauman MD Order to Admit: Signed Record reviewed and patient discussed with multidisciplinary team. Lives in [place], [place] 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 He is independent and drives. Insurance: No Insurance. (Guillermo Aaron SUPERVISOR RESIDENTIAL notified) [facility] in [facility] Medical/Surgical:63 yo [...] Pabon MSN RN Clinical Resource Coordinators Phone: [phone] Pager [phone] documented in this encounter H&P Notes * Edy Berry MD - 01/07/2014 5:02 PM EDT Inpatient Cardiac Electrophysiology Follow-up Note Date of Consultation: 01/07/2014 Admit Date: 01/06/2014 Place of Service: Inpatient Unit Reason for Consult: We are seeing Shahnaz Santiago for the evaluation of ventricular tachycardia Patient Active Problem List Diagnosis ??? ASCVD (arteriosclerotic cardiovascular disease) Overview Note: ?? Heart catheterization in [facility] in [...] stress test at [facility] in [place], [place] May 02, 2013 during which he developed left shoulder and arm discomfort during submaximal exercise on the treadmill and after which he was converted to a pharmacologic test; nuclear imaging showed ejection fraction of 45% with a partially reversible inferior defect ?? Cath [facility] 05/13/2013: normal left main, [...] ASCVD (PCI to Cx, LAD; no hx [place]) and tobacco use. Andressa recently had a [...] the next morning, and he went to [facility], where ECG showed VT. He was cardioverted with return to NSR with 1st degree AVB, sub-mm STD in the lateral leads. His troponin was indeterminate. The patient was transferred to the [facility], where he has remained in [...] mg by mouth 2 times daily. ??? Belleview-3 Fatty Acids (FISH OIL) 500 mg Cap Take by mouth daily. ??? multivitamin capsule Take 1 capsule by mouth daily. ??? LANCETS MISC by Misc.(Non-Drug; Combo Route) route. ??? lamotrigine (LAMICTAL) 100 mg tablet Take 100 mg by mouth daily. ??? alprazolam (XANAX XR) 3 mg 24 hr tablet Take 3 mg by mouth every morning. ? ? lactobac cmb #6-xxt-dpbslciqys (PROBIOTIC & ACIDOPHILUS) 300-250 million cell- mg [...] of cardiac arrest, pt believes due to [place] at age of 53. Heavy smoker. His mother had PVD. 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 Heart catheterization in [facility] in [...] stress test at [facility] in [place], [place] May 02, 2013 during which he developed left shoulder and arm discomfort during submaximal exercise on the treadmill and after which he was converted to a pharmacologic test; nuclear imaging showed ejection fraction of 45% with a partially reversible inferior defect ?? Cath [facility] 05/13/2013: normal left main, [...] ASCVD (PCI to Cx, LAD; no hx [place]) and tobacco use. Andressa recently had a [...] the next morning, and he went to [facility], where ECG showed VT. He was cardioverted with return to NSR with 1st degree AVB, sub-mm STD in the lateral leads. His troponin was indeterminate. The patient was transferred to the [facility], where he has remained in [...] mg by mouth 2 times daily. ??? Belleview-3 Fatty Acids (FISH OIL) 500 mg Cap Take by mouth daily. ??? multivitamin capsule Take 1 capsule by mouth daily. ??? LANCETS MISC by Misc.(Non-Drug; Combo Route) route. ??? lamotrigine (LAMICTAL) 100 mg tablet Take 100 mg by mouth daily. ??? alprazolam (XANAX XR) 3 mg 24 hr tablet Take 3 mg by mouth every morning. ? ? lactobac cmb #6-yxn-xplcebwpon (PROBIOTIC & ACIDOPHILUS) 300-250 million cell- mg [...] of cardiac arrest, pt believes due to [place] at age of 53. Heavy smoker. His mother had PVD. 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 He should ideally check pulse for any recurrent symptoms of VT (e.g. Weakness, SOB) and not delay hospital presentation as he did this time. Will discuss more with him in AM. * Kenia Bauman MD - 01/06/2014 2:45 AM EDT Cardiology Admission History and Physical Patient Name: Shahnaz Santiago Service: [address] Responsible Attending: Kenia Bauman MD, MD PCP: JENNIFER HARO MD PCP phone #: [phone] ID/Chief Complaint: 63 yo man with ASCVD [...] a chronic, has beenaffecting him 20 years, qdtbkoygs-mo-drurfvbguy, sternally located discomfort that is constant and [...] change from his baseline he went to ED for evaluation.There he was found to be tachycardic in the 160s, BP 108/64 and sating 96% on room air. An EKG revealed a monomorphic tachycardia. He was given versed 4mg, cardiovert with 120J biphasic. The patient's repeat EKG showed sinus rhythm with a 1st degree AV block RI of 214ms, as well as new T-wave inversions and sub 1mm ST depressions in V3-V6. His troponin was an indeterminate value 0.13 (0.06-0.59 =indeterminate). The patient was then transferred to [facility]. , OSH labs prior to transfer: [...] stress test at [facility] in [place], [place] May 02, 2013 during which he developed left shoulder and arm discomfort during submaximal exercise on the treadmill and after which he was converted to a pharmacologic test; nuclear imaging showed ejection fraction of 45% with a partially reversible inferior defect ?? Cath [facility] 05/13/2013: normal left main, [...] Cap Take by mouth daily. Generic drug: Belleview-3 Fatty Acids Refills: 0 glipiZIDE 5 mg [...] by mouth daily. Generic drug: lactobac cmb #7-onr-geglvfqdfx Refills: 0 rosuvastatin 20 mg Tab Commonly [...] ischemia Kalyan Babb, PGY-2 Team Pager # [phone] Cardiology Attending Addendum I have interviewed and [...] 01/12/2014 11:50 AM EDTAssociated Order(s): SCAN DOC: SALES REPRESENTATIVE CASH REGISTERS documented in this encounter Miscellaneous Notes * [...] a chronic, has beenaffecting him 20 years, owgyfdrac-sl-tnusnuxkwn, sternally located discomfort that is constant and [...] change from his baseline he went to ED for evaluation.There he was found to be tachycardic in the 160s, BP 108/64 and sating 96% on room air. An EKG revealed a monomorphic tachycardia. He was given versed 4mg, cardiovert with 120J biphasic. The patient's repeat EKG showed sinus rhythm with a 1st degree AV block RI of 214ms, as well as new T-wave inversions and sub 1mm ST depressions in V3-V6. His troponin was an indeterminate value 0.13 (0.06-0.59 =indeterminate). The patient was then transferred to [facility]. 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 There was no pre-excitation or conduction aberrancy identified. The znqrooyy-tw-QXA < QRS-QRS just prior to the observed [...] Cap Take by mouth daily. Generic drug: Belleview-3 Fatty Acids Refills: 0 glipiZIDE 5 mg [...] by mouth daily. Generic drug: lactobac cmb #1-gbu-djeyiykgxl Refills: 0 rosuvastatin 20 mg Tab Commonly [...] Center 02/07/2014 8:10 AM Kit Self MD Critical access hospital Follow-Up Appointments Date and Time Provider and Specialty Location Jan 13, 2014 @ 2:[address] [facility] Your Inpatient Doctor: Kenia Bauman MD Your Primary Care Provider: JENNIFER HARO MD [phone] For questions regarding this document or issues relating to this hospitalization on the Medical Service, please contact your inpatient physician through the [facility] Microstrategy Reports Developer . Issues afterhours and on weekends will be handled by the Hospitalist staff on-call. Future Appointments and Orders Future Appointments: Provider: Department: Dept Phone: Center: 02/07/2014 8:10 AM Kit Self MD Cardiology [phone] [facility] Joint Appt Nurse One Cardiology Antoni, NAHUN HOLMB 4A [phone] [facility] 04/10/2014 9:30 AM Raul Salmeron RN Cardiology [phone] [facility] For questions regarding this document or issues relating to this hospitalization on the Medical Service, please contact your inpatient physician through the [facility] Microstrategy Reports Developer . Issues afterhours and on weekends will be handled by the Director Reactor Projects staff on-call. Signed: KENIA BAUMAN MD * [...] - 01/06/2014 5:34 PM EDT Electrophysiology Study Microstrategy Reports Developer: José Manuel Cole MD Indication: Ventricular tachycardia [...] (CL) of 1070 ms were as follows: RI: 230 ms HV: 40 ms (?) QRS: 110 ms (no manifest pre-excitation) QT: 450 ms 2) Atrial overdrive pacing (10 mA @ 2 ms) was accomplished from the low right atrium, and the atrioventricular (AV) Wenckebach block CL was observed at 500 ms. There was no pre-excitation or conduction aberrancy identified. The [id number]-eh-ZJO < QRS-QRS just prior to the observed [...] Hospital Encounter [place] [address] Arrived 08/09/2024 10:00 AM EDT Hospital Encounter Non-[place] [address] Arrived documented as of this encounter Procedures Procedure Name Priority Date/Time Associated Diagnosis Comments SALES REPRESENTATIVE CASH REGISTERS SCAN 01/12/2014 11:50 AM EDT POCT GLUCOSE [...] Routine 01/07/20 3:58 PM EDT CARDIAC ENZYMES ([facility]) Routine 01/06/2014 12:40 PM EDT POCT GLUCOSE Routine 01/06/2014 12:15 PM EDT CARDIAC ENZYMES ([facility]) Routine 01/06/2014 11:30 AM EDT APTT [...] in this encounter Results * SCAN DOC: SALES REPRESENTATIVE CASH REGISTERS (01/12/2014 11:50 AM EDT) Anatomical Region Laterality Modality Other Narrative 01/12/2014 11:53 AM EDT Procedure Note Provider, Scanning - 01/12/2014 11:50 AM EDT Scanning Provider MEDIA MGR SCAN EXT O RDR/RSLT * (ABNORMAL) POCT Glucose (01/11/2014 11:55 AM EDT) Glucose, POC 285(H) 60 - 199 mg/dL [facility] Comment: Supplemental ranges: <140 mg/dL before meals <180 mg/dL all other times of the day Blood specimen (specimen) 01/11/2014 11:55 AM EDT 01/11/2014 11:55 AM EDT Kenia Bauman MD POINT OF CARE TEST O RDERABLES [facility] * XR chest routine PA [...] supplied above were not validated at [facility]. Results from pediatric patients should be [...] the following links into your internet browser. [email or web address] Blood specimen (specimen) 01/11/2014 3:56 AM EDT 01/11/2014 4:21 AM EDT Narrative Resulting Agency Comment Spec In Lab Kenia Bauman MD CHEMISTRY ORDERABLES Performing Organization Address [facility] Phone Number [email or web address] * POCT Glucose (01/11/2014 3:46 AM EDT) Glucose, POC 137 60 - 199 mg/dL [facility] Comment: Supplemental ranges: <140 mg/dL before meals <180 mg/dL all other times of the day Blood specimen (specimen) 01/11/2014 3:46 AM EDT 01/11/2014 3:46 AM EDT Kenia Bauman MD POINT OF CARE TEST O RDERABLES Performing Organization Address [facility] Phone Number [email or web address] * POCT Glucose (01/10/2014 11:57 PM EDT) Glucose, POC 173 60 - 199 mg/dL [facility] Comment: Supplemental ranges: <140 mg/dL before meals <180 mg/dL all other times of the day Blood specimen (specimen) 01/10/2014 11:57 PM EDT 01/10/2014 11:57 PM EDT Kenia Bauman MD POINT OF CARE TEST O RDERABLES Performing Organization Address [facility] Phone Number [email or web address] * (ABNORMAL) POCT Glucose (01/10/2014 8:31 PM EDT) Glucose, POC 201(H) 60 - 199 mg/dL [facility] Comment: Supplemental ranges: <140 mg/dL before meals <180 mg/dL all other times of the day Blood specimen (specimen) 01/10/2014 8:31 PM EDT 01/10/2014 8:31 PM EDT Kenia Bauman MD POINT OF CARE TEST O [place] Performing Organization Address [facility] de Phone Number [facility] * POCT Glucose (01/10/2014 6:04 PM EDT) Glucose, POC 164 60 - 199 mg/dL [facility] Comment: Supplemental ranges: <140 mg/dL before meals <180 mg/dL all other times of the day Blood specimen (specimen) 01/10/2014 6:04 PM EDT 01/10/2014 6:04 PM EDT Kenia Bauman MD POINT OF CARE TEST O [place] Performing Organization Address [facility] de Phone Number [facility] * Electrophysiology [...] with O-silk. Final Parameters: Ventricular electrode: ?? [employer] [place] Model# 0292 Serial# [id number] ??Bipolar, steroid-tipped, active-fixation, ??single coil DF-4 lead ??Access: ? Left axillary vein ??Location: ?RV apex ??R wave, ICD: ? 9.6 mV ??Pacing threshold, ICD: ? 0.6 V at 0.5 ms ??Impedance, ICD: ? 913 ohms (74 ohms for shock vector) ??Pace the diaphragm at 10 V: ??No Atrial electrode: ?? [employer] Dextrus Model# 4136 Serial# [id number] ??Bipolar, steroid-tipped, active-fixation IS-1 lead ??Access: ? Left axillary vein ??Location ? Right atrial appendage ??P wave, ICD: ? 4.3 mV ??Pacing threshold, pacemaker: ??1.7 V at 0.5 ms ??Impedance, pacemaker: ??538 ohms ??Pace the diaphragm at 10 V: ??No Pulse generator: ? [employer] Incepta Model# E162 Serial# [id number] DDDR ICD ??Location: ?Subcutaneous Defibrillation testing was [...] major muscle withO-silk. Final Parameters: Ventricular electrode: [employer] [place] Model# 0292 Serial# [id number] Bipolar, steroid-tipped, active-fixation, single coil DF-4 lead Access: Left axillary vein Location: RV apex R wave, ICD: 9.6 mV Pacing threshold, ICD: 0.6 V at 0.5 ms Impedance, ICD: 913 ohms (74 ohms for shock vector) Pace the diaphragm at 10 V: No Atrial electrode: [employer] Dextrus Model# 4136 Serial# [id number] Bipolar, steroid-tipped, active-fixation IS-1 lead Access: Left axillary vein Location Right atrial appendage P wave, ICD: 4.3 mV Pacing threshold, pacemaker: 1.7 V at 0.5 ms Impedance, pacemaker: 538 ohms Pace the diaphragm at 10 V: No Pulse generator: [employer] Incepta Model# E162 Serial# [id number] DDDR ICD Location: Subcutaneous Defibrillation testing was [...] (ABNORMAL) POCT Glucose (01/10/2014 11:39 AM EDT) [facility] Glucose, POC 218(H) 60 - 199 mg/dL [facility] Comment: Supplemental ranges: <140 mg/dL before meals <180 mg/dL all other times of the day Blood specimen (specimen) 01/10/2014 11:39 AM EDT 01/10/2014 11:39 AM EDT Kenia Bauman MD POINT OF CARE TEST O RDERALOREE Performing Organization Address [facility] de Phone Number [facility] BEN[facility] * (ABNORMAL) POCT Glucose (01/10/2014 7:36 AM EDT) Glucose, POC 242(H) 60 - 199 mg/dL [facility] Comment: Supplemental ranges: <140 mg/dL before meals <180 mg/dL all other times of the day Blood specimen (specimen) 01/10/2014 7:36 AM EDT 01/10/2014 7:36 AM EDT Kenia Bauman MD POINT OF CARE TEST O [place] Performing Organization Address [facility] de Phone Number [facility] BEN[facility]ZI[facility] * POCT Glucose (01/10/2014 4:25 AM EDT) Glucose, POC 153 60 - 199 mg/dL [facility] Comment: Supplemental ranges: <140 mg/dL before meals <180 mg/dL all other times of the day Blood specimen (specimen) 01/10/2014 4:25 AM EDT 01/10/2014 4:25 AM EDT Kenia Bauman MD POINT OF CARE TEST O [place] Performing Organization Address [facility] de Phone Number [facility] B[facility] * (ABNORMAL) Differential, Automated (01/10/2014 4:21 AM EDT) Neutrophil % 45.9 34.0 - 71.0 % [facility] MILLENNIUM Neutrophil Absolute 4.06 1.50 - 6.30 [...] MD HEMATOLOGY ORDERABLE S Performing Organization Address [facility]/ZIP Co de Phone Number [facility] * (ABNORMAL) Magnesium (01/10/2014 4:21 AM EDT) Pathologist [facility] [place] Magnesium 0.67(L) 0.69 - 1.07 mmol/L [facility] MILL[facility] Blood specimen (specimen) 01/10/2014 4:21 AM EDT 01/10/2014 4:36 AM EDT Narrative Resulting Agency Comment Spec In Lab Kenia Bauman MD CHEMISTRY ORDERABLES Performing Organization Address [facility] Co de Phone Number [facility] * Basic Metabolic Panel (non-fasting) (01/10/2014 4:21 AM EDT) Pathologist [facility] [place] Glucose 161 60 - 199 mg/dL [facility] MILLENNIUM Comment:Diabetes: >=200 mg/d L plus symptoms Blood Urea Nitrogen 17 10 - 20 mg/dL CERNER MILLENNIUM Creatinine 0.91 0.80 - 1.50 mg/dL CERNER MILLENNIUM Comment: Please note that the pediatric reference intervals supplied above were not validated at [facility]. Results from pediatric patients should be interpreted in conjunction to the patient's age, height and muscle mass. Sodium 139 135 - 145 mmol/L [facility] MILLENNIUM Potassium 4.3 3.5 - 5.0 [...] the following links into your internet browser. [email or web address] Blood specimen (specimen) 01/10/2014 4:21 AM EDT 01/10/2014 4:36 AM EDT Narrative Resulting Agency Comment Spec In Lab Kenia Bauman MD CHEMISTRY ORDERABLES Performing Organization Address [facility] Co de Phone Number [facility]ITAL[facility]LM[facility] ROSEKAIS[facility] * POCT Glucose (01/09/2014 11:25 PM EDT) Glucose, POC 164 60 - 199 mg/dL [facility] Comment: Supplemental ranges: <140 mg/dL before meals <180 mg/dL all other times of the day Blood specimen (specimen) 01/09/2014 11:25 PM EDT 01/09/2014 11:25 PM EDT Kenia Bauman MD POINT OF CARE TEST O RDERABLES Performing Organization Address [facility]/ZIP Co de Phone Number [facility] * (ABNORMAL) POCT Glucose (01/09/2014 8:03 PM EDT) Glucose, POC 204(H) 60 - 199 mg/dL [facility] Comment: Supplemental ranges: <140 mg/dL before meals <180 mg/dL all other times of the day Blood specimen (specimen) 01/09/2014 8:03 PM EDT 01/09/2014 8:03 PM EDT Kenia Bauman MD POINT OF CARE TEST O SAMPSON Performing Organization Address [facility] de Phone Number [facility]KAIS[facility] * (ABNORMAL) POCT Glucose (01/09/2014 4:34 PM EDT) Glucose, POC 231(H) 60 - 199 mg/dL [facility] Comment: Supplemental ranges: <140 mg/dL before meals <180 mg/dL all other times of the day Blood specimen (specimen) 01/09/2014 4:34 PM EDT 01/09/2014 4:34 PM EDT Kenia Bauman MD POINT OF CARE TEST O SAM[place]ON Performing Organization Address [facility] de Phone Number [facility]ITALDELMAR [facility]GEN[facility] * (ABNORMAL) POCT Glucose (01/09/2014 11:44 AM EDT) Glucose, POC 280(H) 60 - 199 mg/dL [facility] Comment: Supplemental ranges: <140 mg/dL before meals <180 mg/dL all other times of the day Blood specimen (specimen) 01/09/2014 11:44 AM EDT 01/09/2014 11:44 AM EDT Kenia Bauman MD POINT OF CARE TEST O SAM[place]ON Performing Organization Address [facility] de Phone Number [facility]ITALDELM[facility]OP[facility]GEN[facility] * POCT Glucose (01/09/2014 7:51 AM EDT) Glucose, POC 148 60 - 199 mg/dL [facility] Comment: Supplemental ranges: <140 mg/dL before meals <180 mg/dL all other times of the day Blood specimen (specimen) 01/09/2014 7:51 AM EDT 01/09/2014 7:51 AM EDT Kenia Bauman MD POINT OF CARE TEST O RDERABLES [facility] M[facility]uCOPPER SPRINGS HOSPITALIUM * Basic Metabolic Panel (non-fasting) (01/09/2014 4:32 AM EDT) Glucose 124 60 - 199 mg/dL CERNER MILLENNIUM Comment:Diabetes: >=200 mg/d L plus symptoms Blood Urea Nitrogen 15 10 - 20 mg/dL CERNER MILLENNIUM Creatinine 0.87 0.80 - 1.50 mg/dL CERNER MILLENNIUM Comment: Please note that the pediatric reference intervals supplied above were not validated at [facility]. Results from pediatric patients should be [...] the following links into your internet browser. [email or web address] Blood specimen (specimen) 01/09/2014 4:32 AM EDT [...] Cell 8.0 4.0 - 10.0 x10(3)/mc L [facility] Red Blood Cell 4.83 4.63 - 6.08 x10(6)/mc L [facility] Hemoglobin 14.5 13.7 - 17.5 gm/dL [facility] Comment:Repeated & verified Hematocrit 43.0 40.0 - 51.0 % [facility] Mean Cell Volume 89.0 79.0 - 92.0 fL [facility] Mean Cell Hemoglobin 30.0 25.6 - 32.2 pg [facility] Mean Cell Hemoglobin Concentration 33.7 32.0 - 36.5 gm/dL [facility] Platelet 184 145 - 370 x10(3)/mc L [facility] RDW Standard Deviation 47.4(H) 35.0 - 46.0 fL [facility] RDW coefficient of variation 14.8(H) 10.9 - 14.4 % [facility] Mean Platelet Volume 10.3 9.0 - 12.0 fL [facility] Blood specimen (specimen) 01/09/2014 4:32 AM EDT 01/09/2014 4:38 AM EDT Narrative Resulting Agency Comment Spec In Lab Kenia Bauman MD HEMATOLOGY ORDERABLE S Performing Organization Address [facility] de Phone Number [facility] * Magnesium (01/09/2014 4:32 AM EDT) [facility] Magnesium 0.76 0.69 - 1.07 mmol/L [facility] Blood specimen (specimen) 01/09/2014 4:32 AM EDT 01/09/2014 4:38 AM EDT Narrative Resulting Agency Comment Spec In Lab Kenia Bauman MD CHEMISTRY ORDERABLES Performing Organization Address [facility] Co de Phone Number [facility] * POCT Glucose (01/09/2014 4:19 AM EDT) [facility] Glucose, POC 114 60 - 199 mg/dL [facility] Comment: Supplemental ranges: <140 mg/dL before meals <180 mg/dL all other times of the day Blood specimen (specimen) 01/09/2014 4:19 AM EDT 01/09/2014 4:19 AM EDT Kenia Bauman MD POINT OF CARE TEST O RDERALOREE Performing Organization Address [facility] de Phone Number [facility] * POCT Glucose (01/09/2014 1:41 AM EDT) Glucose, POC 155 60 - 199 mg/dL [facility] Comment: Supplemental ranges: <140 mg/dL before meals <180 mg/dL all other times of the day Blood specimen (specimen) 01/09/2014 1:41 AM EDT 01/09/2014 1:41 AM EDT Kenia Bauman MD POINT OF CARE TEST O SAM[place]ON Performing Organization Address [facility] de Phone Number [facility] * (ABNORMAL) POCT Glucose (01/08/2014 11:19 PM EDT) Glucose, POC 252(H) 60 - 199 mg/dL [facility] Comment: Supplemental ranges: <140 mg/dL before meals <180 mg/dL all other times of the day Blood specimen (specimen) 01/08/2014 11:19 PM EDT 01/08/2014 11:19 PM EDT Kenia Bauman MD POINT OF CARE TEST O CARLOSERALOREE Performing Organization Address [facility] de Phone Number [facility] * (ABNORMAL) POCT Glucose (01/08/2014 7:50 PM EDT) Glucose, POC 205(H) 60 - 199 mg/dL [facility] Comment: Supplemental ranges: <140 mg/dL before meals <180 mg/dL all other times of the day Blood specimen (specimen) 01/08/2014 7:50 PM EDT 01/08/2014 7:50 PM EDT Kenia Bauman MD POINT OF CARE TEST O RDERABLES Performing Organization Address [facility] Co de Phone Number CERDELMAR ROSEENNIUM * POCT Glucose (01/08/2014 5:17 PM EDT) Glucose, POC 194 60 - 199 mg/dL [facility] Comment: Supplemental ranges: <140 mg/dL before meals <180 mg/dL all other times of the day Blood specimen (specimen) 01/08/2014 5:17 PM EDT 01/08/2014 5:17 PM EDT Kenia Bauman MD POINT OF CARE TEST O RDERABLES Performing Organization Address [facility] de Phone Number CERDELMAR ROSEENNIUM * (ABNORMAL) POCT Glucose (01/08/2014 2:21 PM EDT) Glucose, POC 230(H) 60 - 199 mg/dL [facility] Comment: Supplemental ranges: <140 mg/dL before meals <180 mg/dL all other times of the day Blood specimen (specimen) 01/08/2014 2:21 PM EDT 01/08/2014 2:21 PM EDT Kenia Bauman MD POINT OF CARE TEST O RDERABLES Performing Organization Address [facility] de Phone Number CERDELMAR ROSEENNIUM * (ABNORMAL) POCT Glucose (01/08/2014 12:04 PM EDT) Glucose, POC 240(H) 60 - 199 mg/dL [facility] MILLENNIUM Comment: Supplemental ranges: <140 mg/dL before meals <180 mg/dL all other times of the day Blood specimen (specimen) 01/08/2014 12:04 PM EDT 01/08/2014 12:04 PM EDT Kenia Bauman MD POINT OF CARE TEST O RDERABLES Performing Organization Address [facility] Co de Phone Number CERDELMAR ROSEENNIUM * POCT Glucose (01/08/2014 7:56 AM EDT) Pathologist [facility] [place] Glucose, POC 125 60 - 199 mg/dL CERNER MILTONENNIUM Comment: Supplemental ranges: <140 mg/dL before meals <180 mg/dL all other times of the day Blood specimen (specimen) 01/08/2014 7:56 AM EDT 01/08/2014 7:56 AM EDT Kenia Bauman MD POINT OF CARE TEST O RDERABLES Performing Organization Address City/[facility]/ZIP Co de Phone Number [facility]ITALDELMAR BENITEZIUM * (ABNORMAL) Magnesium (01/08/2014 7:03 AM EDT) [facility] Magnesium 0.58(L) 0.69 - 1.07 mmol/L [facility]ITALDELMAR ROSEENNIUM Blood specimen (specimen) 01/08/2014 7:03 AM EDT 01/08/2014 7:09 AM EDT Narrative Resulting Agency Comment Spec In Lab Kenia Bauman MD CHEMISTRY ORDERABLES Performing Organization Address [facility] Co de Phone Number MONICA BENITEZIUM * Differential, Automated (01/08/2014 7:03 AM EDT) [facility] Neutrophil % 46.8 34.0 - 71.0 [...] Kenia Bauman MD HEMATOLOGY ORDERABLE S CERNER EMMANUELIUM * (ABNORMAL) Basic Metabolic Panel (non-fasting) (01/08/2014 7:03 AM EDT) Glucose 133 60 - 199 mg/dL CERNER MILLENNIUM Comment:Diabetes: >=200 mg/d L plus symptoms Blood Urea Nitrogen 16 10 - 20 mg/dL CERNER MILLENNIUM Creatinine 0.74(L) 0.80 - 1.50 mg/dL CERNER MILLENNIUM Comment: Please note that the pediatric reference intervals supplied above were not validated at [facility]. Results from pediatric patients should be [...] the following links into your internet browser. [email or web address] Blood specimen (specimen) 01/08/2014 7:03 AM EDT 01/08/2014 7:08 AM EDT Narrative Resulting Agency Comment Spec In Lab Kenia Bauman MD CHEMISTRY ORDERABLES Performing Organization Address [facility] Phone Number [facility] * (ABNORMAL) POCT Glucose (01/08/2014 3:55 AM EDT) Glucose, POC 219(H) 60 - 199 mg/dL [facility] Comment: Supplemental ranges: <140 mg/dL before meals <180 mg/dL all other times of the day Blood specimen (specimen) 01/08/2014 3:55 AM EDT 01/08/2014 3:55 AM EDT Kenia Bauman MD POINT OF CARE TEST O RDERABLES Performing Organization Address [facility] Phone Number [facility] * POCT Glucose (01/07/2014 11:51 PM EDT) Glucose, POC 153 60 - 199 mg/dL [facility] Comment: Supplemental ranges: <140 mg/dL before meals <180 mg/dL all other times of the day Blood specimen (specimen) 01/07/2014 11:51 PM EDT 01/07/2014 11:51 PM EDT Kenia Bauman MD POINT OF CARE TEST O RDERABLES Performing Organization Address [facility] de Phone Number [facility] * POCT Glucose (01/07/2014 9:32 PM EDT) Glucose, POC 190 60 - 199 mg/dL [facility] Comment: Supplemental ranges: <140 mg/dL before meals <180 mg/dL all other times of the day Blood specimen (specimen) 01/07/2014 9:32 PM EDT 01/07/2014 9:32 PM EDT Kenia Bauman MD POINT OF CARE TEST O RDERABLES Performing Organization Address [facility] de Phone Number [facility] * (ABNORMAL) POCT Glucose (01/07/2014 7:36 PM EDT) Glucose, POC 223(H) 60 - 199 mg/dL [facility] Comment: Supplemental ranges: <140 mg/dL before meals <180 mg/dL all other times of the day Blood specimen (specimen) 01/07/2014 7:36 PM EDT 01/07/2014 7:36 PM EDT Kenia Bauman MD POINT OF CARE TEST O RDERALOREE Performing Organization Address [facility] de Phone Number [facility] * POCT Glucose (01/07/2014 5:32 PM EDT) Glucose, POC 180 60 - 199 mg/dL [facility] Comment: Supplemental ranges: <140 mg/dL before meals <180 mg/dL all other times of the day Blood specimen (specimen) 01/07/2014 5:32 PM EDT 01/07/2014 5:32 PM EDT Kenia Bauman MD POINT OF CARE TEST O [place] Performing Organization Address [facility] de Phone Number [facility] * (ABNORMAL) POCT Glucose (01/07/2014 1:24 PM EDT) Glucose, POC 240(H) 60 - 199 mg/dL [facility] Comment: Supplemental ranges: <140 mg/dL before meals <180 mg/dL all other times of the day Blood specimen (specimen) 01/07/2014 1:24 PM EDT 01/07/2014 1:24 PM EDT Kenia Bauman MD POINT OF CARE TEST O RDERALOREE Performing Organization Address [facility] de Phone Number [facility] * (ABNORMAL) Magnesium (01/07/2014 10:00 AM EDT) Magnesium 0.66(L) 0.69 - 1.07 mmol/L [facility] Blood specimen (specimen) 01/07/2014 10:00 AM EDT 01/07/2014 10:17 AM EDT Narrative Resulting Agency Comment Spec In Lab Kenia Bauman MD CHEMISTRY ORDERABLES Performing Organization Address [facility] de Phone Number [facility] * Potassium (01/07/2014 10:00 AM EDT) Potassium 4.3 3.5 - 5.0 mmol/L [facility] Comment: Please note: ??Patients with [...] Bauman MD CHEMISTRY ORDERABLES Performing Organization Address [facility] de Phone Number [facility] * POCT Glucose (01/07/2014 9:23 AM EDT) Glucose, POC 178 60 - 199 mg/dL [facility] Comment: Supplemental ranges: <140 mg/dL before meals <180 mg/dL all other times of the day Blood specimen (specimen) 01/07/2014 9:23 AM EDT 01/07/2014 9:23 AM EDT Kenia Bauman MD POINT OF CARE TEST O RDERABLES Performing Organization Address [facility] de Phone Number [facility] * Differential, Automated (01/07/2014 3:40 AM EDT) Neutrophil % 60.4 34.0 - 71.0 % [facility] Neutrophil Absolute 5.37 1.50 - 6.30 x10(3)/mcL [facility] Lymph % 29.1 19.0 - 53.0 % [...] MD HEMATOLOGY ORDERABLE S Performing Organization Address [facility] Co de Phone Number CERNER MILLENNIUM * (ABNORMAL) Magnesium (01/07/2014 3:40 AM EDT) Pathologist [facility] [place] Magnesium 0.61(L) 0.69 - 1.07 mmol/L CERNER MILLENNIUM Blood specimen (specimen) 01/07/2014 3:40 AM EDT 01/07/2014 3:43 AM EDT Narrative Resulting Agency Comment Spec In Lab Kenia Bauman MD CHEMISTRY ORDERABLES Performing Organization Address [facility] Co de Phone Number [facility] MILLENNIUM * (ABNORMAL) Basic Metabolic Panel (non-fasting) (01/07/2014 3:40 AM EDT) Glucose 93 60 - 199 mg/dL CERNER MILLENNIUM Comment:Diabetes: >=200 mg/d L plus symptoms Blood Urea Nitrogen 20 10 - 20 mg/dL CERNER MILLENNIUM Creatinine 0.81 0.80 - 1.50 mg/dL CERNER MILLENNIUM Comment: Please note that the pediatric reference intervals supplied above were not validated at [facility]. Results from pediatric patients should be [...] the following links into your internet browser. [email or web address] Blood specimen (specimen) 01/07/2014 3:40 AM EDT 01/07/2014 3:43 AM EDT Narrative Resulting Agency Comment Spec In Lab Kenia Bauman MD CHEMISTRY ORDERABLES Performing Organization Address [facility] Co de Phone Number MONICA BENITEZIUM * POCT Glucose (01/07/2014 3:39 AM EDT) [facility] Signature Glucose, POC 95 60 - 199 mg/dL CERNER MILLENNIUM Comment: Supplemental ranges: <140 mg/dL before meals <180 mg/dL all other times of the day Blood specimen (specimen) 01/07/2014 3:39 AM EDT 01/07/2014 3:39 AM EDT Kenia Bauman MD POINT OF CARE TEST O RDERABLES Performing Organization Address [facility] Co de Phone Number MONICA ROSEENNIUM * POCT Glucose (01/06/2014 11:40 PM EDT) Glucose, POC 130 60 - 199 mg/dL [facility] Comment: Supplemental ranges: <140 mg/dL before meals <180 mg/dL all other times of the day Blood specimen (specimen) 01/06/2014 11:40 PM EDT 01/06/2014 11:40 PM EDT Kenia Bauman MD POINT OF CARE TEST O [place] Performing Organization Address [facility] de Phone Number [facility]KA[facility] * POCT Glucose (01/06/2014 9:23 PM EDT) Glucose, POC 173 60 - 199 mg/dL [facility] Comment: Supplemental ranges: <140 mg/dL before meals <180 mg/dL all other times of the day Blood specimen (specimen) 01/06/2014 9:23 PM EDT 01/06/2014 9:23 PM EDT Kenia Bauman MD POINT OF CARE TEST O [place] Performing Organization Address [facility] Co de Phone Number [facility] * POCT Glucose (01/06/2014 6:42 PM EDT) Glucose, POC 125 60 - 199 mg/dL [facility] Comment: Supplemental ranges: <140 mg/dL before meals <180 mg/dL all other times of the day Blood specimen (specimen) 01/06/2014 6:42 PM EDT 01/06/2014 6:42 PM EDT Kenia Bauman MD POINT OF CARE TEST O [place] Performing Organization Address [facility] Co de Phone Number [facility] * Electrophysiology Procedure (01/06/2014 5:20 PM EDT) [...] Modality Other Narrative 01/09/2014 7:14 AM EDT ?[facility] ? Cardiac Catheterization/Intervention Report ? Patient Name: Shahnaz Santiago ? Procedure Date: 01/06/2014 ? A #: [id number] ? Primary Physician: Fackler, Jaron W. ? Case #: [id number] ? File Name: [id number] ? Catheterization Order Number: [id number] ? [facility] ? Final Report [place], [place] ? Patient Name: ? Shahnaz Santiago ? ID#: ?[id number] ? : ?1950 ? Procedure Date: ? January 06, 2014 ? Case #: ? 14- [id number] ? Room: ? 1 ? Case Physician: ? Jaron Jarquin, M.D. ? Start: ?14:40 ?Fellow: ? Jennifer Argueta, ?Admission: ??01/06/2014 ?M.D. ? Referring Physician: ??Jennifer Haro M.D. ? Procedures: ?* Coronary Angiography ?* Left Heart Catheterization ?* Coronary Flow Cecil Measurement ?* Coronary Instantaneous Wave-Free Ratio ?* [...] Note Jaron Jarquin II, MD - 01/09/2014 [facility] Cardiac Catheterization/Intervention Report Patient Name: Shahnaz Santiago Procedure Date: 01/06/2014 A #: [id number] Primary Physician: Jaron Jarquin Case #: File Name: [id number] Catheterization Order Number: [id number] [facility] FinalReport [place], [place] Patient Name: Shahnaz Santiago ID#:[id number] :1950 Procedure Date: January 06, 2014 Case #: Room: 1 Case Physician: Jaron Jarquin M.D. Start: 14:40 Fellow: Jennifer Argueta, Admission:01/06/2014 [place] Referring Physician: Jennifer Haro M.D. Procedures: * Coronary Angiography * Left Heart Catheterization * Coronary Flow Cecil Measurement * Coronary Instantaneous Wave-Free Ratio * [...] Cardiac Enzymes (01/06/2014 12:40 PM EDT) Pathologist [facility] [place] Troponin-T 0.10(H) <=0.03 ng/mL [facility] Comment: 0.03 ng/mL: Represents the 99th percentile upper reference limit for normals. >0.03 ng/mL: Elevated cardiac troponin T level indicative of myocardial damage. Diagnosis of acute, evolving or recent [place] requires a typical rise and gradual fall [...] consensus document of the Joint Society of Cardiology/[place] College of Cardiology Committee for the redefinition of myocardial infarction. ??Journal of the [place] College of [employer]iology 2000; 36: 959-969] Creatine Kinase 127 0 - 200 unit/L MONICA PERALTA Blood specimen (specimen) 01/06/2014 12:40 PM EDT 01/06/2014 12:52 PM EDT Narrative Resulting Agency Comment Spec In Lab Kenia Bauman MD CHEMISTRY ORDERABLES [facility] * POCT Glucose (01/06/2014 12:15 PM EDT) Pathologist [facility] [place] Glucose, POC 165 60 - 199 mg/dL [facility] Comment: Supplemental ranges: <140 mg/dL before meals <180 mg/dL all other times of the day Blood specimen (specimen) 01/06/2014 12:15 PM EDT 01/06/2014 12:15 PM EDT Kenia Bauman MD POINT OF CARE TEST O RDERABLES Performing Organization Address [facility] de Phone Number MONICA PERALTA [...] damage. Diagnosis of acute, evolving or recent [place] requires a typical rise and gradual fall [...] consensus document of the Joint Society of Cardiology/[place] College of Cardiology Committee for the redefinition of myocardial infarction. ??Journal of the [place] College of Cardiology 2000; 36: 959-969] Creatine Kinase 132 0 - 200 unit/L MONICA PERALTA Blood specimen (specimen) 01/06/2014 11:30 AM EDT 01/06/2014 11:45 AM EDT Narrative Resulting Agency Comment Spec In Lab Kenia Bauman MD CHEMISTRY ORDERABLES Performing Organization Address [facility] Co de Phone Number MONICA PERALTA [...] MD HEMATOLOGY ORDERABLE S Performing Organization Address [facility] de Phone Number [facility] * LDL Cholesterol, Direct (01/06/2014 11:30 AM EDT) LDL Cholesterol, Direct 13 <=99 mg/dL [facility] Comment: The National Cholesterol Education Program (NCEP) has set the following guidelines for LDL Cholesterol: Reference range: ?? Optimal: ?<100 mg/dL ?? Near Optimal/Above Optimal: ?? 100-129 mg/dL ?? Borderline high: ?130-159 mg/dL ?? High: ? 160-189 mg/dL ?? Very high: ?>iq=814 mg/dL TATI 2001: 285(19):5838-3449 Blood specimen (specimen) 01/06/2014 11:30 AM EDT 01/06/2014 11:45 AM EDT Narrative Resulting Agency Comment Spec In Lab Kenia Bauman MD CHEMISTRY ORDERABLES Performing Organization Address [facility] de Phone Number [facility] * Echocardiogram Transthoracic(Leb) (01/06/2014 10:29 AM EDT) EF 56 HEARTLAB SYSTEM Anatomical Region Laterality Modality Other 01/06/2014 Narrative 01/06/2014 10:41 AM EDT Procedure: ? Transthoracic Echocardiogram Patient: ? PAMELA CHRISTIE P ? (Age): 1950(63) Med Rec#: ?[id number] ? Sex: ?M ? Site Loc: ?[facility] ? Ht / Wt: ??185(cm)/92(kg) Pt. Loc: ? CCU ?BSA: ?217 Study Date: ?01/06/2014 ? Pt. Type: Inpatient Tape: ? Referring: Kenia Bauman ([id number]) Referring: BRUCE Hotel Maintenance Worker: Jodie Givens Diagnosis:CPT Code(s): ??Echo Full (51832), ??Spectral Doppler (83039), Color Doppler (82617), Indication(s): ??Tachycardia Rhythm: HR ?BP ?114/63 ?? [...] ? Mid-Inferior ?Normal ? Mid-Inferoseptal ?Normal ? [place]-Septal ? Normal ? [place]-Anterior ? Normal ? [place]-Lateral ?Normal ? [place]-Inferior ? Normal ? [place]-Tip ?Normal ? Chambers ?Value ?Units (Range) ? [...] 01/06/2014 10:41:12 Images reviewed and interpretation verified [facility] Cardiac Ultrasound Laboratory Procedure Note Warren Atkinson MD - 01/06/2014 Procedure: Transthoracic Echocardiogram Patient: PAMELA Gordon DOB(Age): 1950(63) Med Rec#: [id number] Sex: M Site Loc: [facility] Ht / Wt: 185(cm)/92(kg) Pt. Loc: CCU BSA: 2.17 Study Date: 01/06/2014 Pt. Type: Inpatient Tape: Referring: Kenia Bauman ([id number]) Referring: BRU[place] Hotel Maintenance Worker: Jodie Givens Diagnosis:CPT Code(s): Echo Full (52795), Spectral Doppler (82196), Color Doppler (11242), Indication(s): Tachycardia Rhythm: HR BP 114/63 SUMMARY: [...] Normal Mid-Posterolateral Normal Mid-Inferior Normal Mid-Inferoseptal Normal [place]-Septal Normal [place]-Anterior Normal [place]-Lateral Normal [place]-Inferior Normal [place]-Tip Normal Chambers Value Units (Range) EF Bi-p [...] 01/06/2014 10:41:12 Images reviewed and interpretation verified [facility] Cardiac Ultrasound Laboratory Kenia Bauman MD ECHO ORDERABLES * EKG 12 Lead (01/06/2014 9:29 AM EDT) Ventricular rate 61 BPM MUSE SYSTEM Atrial Rate 61 BPM MUSE SYSTEM P-R Interval 210 ms MUSE SYSTEM QRS Duration 128 ms MUSE SYSTEM Q-T Interval 450 ms MUSE SYSTEM QTC Calculated (Bezet) 453 ms MUSE SYSTEM Calculated P Catron 36 degrees MUSE SYSTEM Calculated R Catron -51 degrees MUSE SYSTEM Calculated T Catron -62 degrees MUSE SYSTEM INTERPRETATION Sinus rhythm [...] * POCT Glucose (01/06/2014 8:28 AM EDT) [facility] Glucose, POC 104 60 - 199 mg/dL CERNER MambuENNIUM Comment: Supplemental ranges: <140 mg/dL before meals <180 mg/dL all other times of the day Blood specimen (specimen) 01/06/2014 8:28 AM EDT 01/06/2014 8:28 AM EDT Kenia Bauman MD POINT OF CARE TEST O RDERABLES Performing Organization Address City/[facility]/ZIP Co de Phone Number [place] * XR chest routine PA & lateral [...] AM EDT) Creatinine, Urine 167 mg/dL CERNER MambuENNIUM Urine specimen (specimen) 01/06/2014 3:06 AM EDT 01/06/2014 3:15 AM EDT Narrative Resulting Agency Comment Spec In Lab Kenia Bauman MD URINE ORDERABLES Performing Organization Address [facility] Co de Phone Number [place] * Sodium, urine, random (01/06/2014 3:06 AM EDT) Sodium, Urine 85 mmol/L CERNER MILLENNIUM Urine specimen (specimen) 01/06/2014 3:06 AM EDT 01/06/2014 3:15 AM EDT Narrative Resulting Agency Comment Spec In Lab Kenia Bauman MD URINE ORDERABLES [place] * (ABNORMAL) Urinalysis with microscopic (01/06/2014 3:06 [...] Urine Dipstick Hazy(A) Clear CERNER MILLENNIUM Specific [place] Urine Automated 1.019 1.002 - 1.030 CERNER [...] Cardiac Enzymes (01/06/2014 2:50 AM EDT) Pathologist [facility] [place] Troponin-T 0.05(H) <=0.03 ng/mL CERNER MILLENNIUM Comment: 0.03 ng/mL: Represents the 99th percentile upper reference limit for normals. >0.03 ng/mL: Elevated cardiac troponin T level indicative of myocardial damage. Diagnosis of acute, evolving or recent [place] requires a typical rise and gradual fall [...] consensus document of the Joint Society of Cardiology/[place] College of Cardiology Committee for the redefinition of myocardial infarction. ??Journal of the [place] College [employer]iology 2000; 36: 959-969] Creatine Kinase 101 0 - 200 unit/L CERNER MILLENNIUM Blood specimen (specimen) 01/06/2014 2:50 AM EDT 01/06/2014 2:59 AM EDT Narrative Resulting Agency Comment Spec In Lab Kenia Bauman MD CHEMISTRY ORDERABLES CERDELMAR ROSEENNIUM * (ABNORMAL) Differential, Automated (01/06/2014 2:50 [...] ORDERABLE S CERNER MILTONENNIUM * (ABNORMAL) Hemogram (01/06/2014 2:50 AM [...] MD HEMATOLOGY ORDERABLE S Performing Organization Address City/[facility]/ZIP Co de Phone Number [facility] MILTONENNIUM * (ABNORMAL) Magnesium (01/06/2014 2:50 AM EDT) Magnesium 0.67(L) 0.69 - 1.07 mmol/L [facility] MILLENNIUM Blood specimen (specimen) 01/06/2014 2:50 AM EDT 01/06/2014 2:58 AM EDT Narrative Resulting Agency Comment Spec In Lab Kenia Bauman MD CHEMISTRY ORDERABLES Performing Organization Address [facility] Co de Phone Number [facility] MILTONENNIUM * (ABNORMAL) Lipid panel (fasting) (01/06/2014 2:50 AM EDT) Cholesterol, Total 55 <=199 mg/dL CERNER MILLENNIUM Comment: Recommendations of the NCEP Adult Treatment Panel for the following risk cutoff thresholds for the [place] population: Desirable: <200 mg/dL Borderline High: 200-239 mg/dL High: > or = 240 mg/dL Triglyceride 148 <=149 mg/dL [facility] Comment: Reference Range: Normal triglycerides: ??<150 mg/dL Borderline high: ??150-199 mg/dL High: ??200-499 mg/dL Very high: ??>po=905 mg/dL TATI 2001; 285(19):5352-9272 HDL Cholesterol 26(L) >=40 mg/dL CER NER MILLENNIUM Comment: Reference range: ??Low HDL: ?? < 40 mg/dL ??Normal: ?40-60 mg/dL ??Desirable: > 60 mg/dL TATI 2001; 285(19):2636-9498 LDL Cholesterol -1 <=99 mg/dL CER NER MILLENNIUM Comment: Reference range: ?? Optimal: ?<100 mg/dL ?? Near Optimal/Above Optimal: ?? 100-129 mg/dL ?? Borderline high: ?130-159 mg/dL ?? High: ? 160-189 mg/dL ?? Very high: ?>bc=277 mg/dL TATI 2001: 285(19):0301-2434 Cholesterol/HDL Ratio 2.1 ratio CERNER MILLENNIUM Comment: A Cholesterol to HDL ratio below 4:1 is desirable. ??Studies suggest that increased CAD risk occurs at ratios above 5 for females and above 6 for men. ? [place] Heart Association ??(http://www.americanheart.org) ? Yenny Int Med, 1994; 121:641 ? AM J Med, 1998; 105(1A):48S Blood specimen (specimen) 01/06/2014 2:50 AM EDT 01/06/2014 2:58 AM EDT Narrative Resulting Agency Comment Spec In Lab Kenia Bauman MD CHEMISTRY ORDERABLES [facility] * (ABNORMAL) Basic Metabolic Panel (non-fasting) (01/06/2014 2:50 AM EDT) [facility] Glucose 107 60 - 199 mg/dL [facility] Comment:Diabetes: >=200 mg/d L plus symptoms Blood Urea Nitrogen 31(H) 10 - 20 mg/dL CERNER MILLENNIUM Creatinine 1.41 0.80 - 1.50 mg/dL CERNER MILLENNIUM Comment: Please note that the pediatric reference intervals supplied above were not validated at [facility]. Results from pediatric patients should be [...] the following links into your internet browser. [email or web address] Blood specimen (specimen) 01/06/2014 2:50 AM EDT [...] (Bezet) 445 ms MUSE SYSTEM Calculated P Catron 18 degrees MUSE SYSTEM Calculated R Catron -55 degrees MUSE SYSTEM Calculated T Catron -70 degrees MUSE SYSTEM INTERPRETATION Sinus rhythm [...] to induce or maintain moderate sedation per [facility] Moderate Sedation Protocol, Not to exceed 50 mcg/dose, 250 mcg/hr, or 20 mcg/kg per case., EP (Intra-Procedure), Routine 1510 (Given - Provider: Yaron Don RN)1518 (Given - Provider: Yaron oDn RN)1534 (Given - Provider: Yaron Don RN)1550 [...] to induce or maintain moderate sedation per [facility] Moderate Sedation Protocol, Not to exceed [...] RN) documented in this encounter Care Teams Broach Operator Relationship Specialty Start Date End Date Jennifer Haro MD PCP - General 01/07/12 01/30/14 documented as of this encounter
--- OUTSIDE RECORDS SUMMARY | 2024-05-24 14:33 | XMS_ITS | Encounter Summary ---
Author Organization [facility] [place] [address] Care Team Providers Care Horse Stud Worker Name Role Phone Jennifer Haro MD Primary Care Provider Court uribe Encounter Details Date Type Department Care Team (Late st Contact Info) Description 01/06/2014 1:30 PM EDT - 01/06/2014 2:30 PM EDT [place] [id number] Jaron Jarquin II, MD CARDIAC CATHETERIZATION Social [...] a 91 day new device check at [facility] EP Device Clinic. [...] 8:10 AM Kit Self MD Le Cardio [facility] Follow-Up Appointments Date and Time Provider and Specialty Location Jan 13, 2014 @ 2:[address] [facility]patient Doctor: Kenia Bauman MD Your Primary Care Provider: JENNIFER HARO MD [phone] For questions regarding this document or issues relating to this hospitalization on the Medical Service, please contact your inpatient physician through the [facility] Multimedia Designer . Issues afterhours and on weekends will [...] times daily. 90 tablet 6 05/14/2013 01/27/2017 Speonk-3 Fatty Acids (FISH OIL) 500 mg Cap Take by mouth daily. 01/14/2016 lamotrigine (LAMICTAL) 100 mg tablet Take 200 mg by mouth daily. 09/01/2018 alprazolam (XANAX XR) 3 mg 24 hr tablet Take 3 mg by mouth nightly. 09/18/2020 [facility] cmb #1-xxx-ygapyrfhpc (PROBIOTIC & ACIDOPHILUS) 300-250 million cell-mg Cap [...] this time. Patient discharged to [facility] with Daughter in stable condition. Wheelchair offered; patient elected to walk. * Edy Torres PA - 01/11/2014 12:10 PM EDT Patient Name: Shahnaz Santiago Patient Age: 63 y.o. Birthdate: 1950 Admit date: 01/06/2014 Attending Physician: Kenia Bauman MD Cardiac Electrophysiology Post-Iimplant Device Interrogation Note Shahnaz Santiago is a 63 y.o. male is POD # 1 following implant of a dual chamber, [employer] ICD for sustained ventricular tachycardia. He [...] in situ V45.02 Device data: Ventricular electrode: [employer] Fancy Gap Model# 0292 Serial# [id number] Bipolar, steroid-tipped, active-fixation, single coil DF-4 lead Access: Left axillary vein Location: RV apex R wave, ICD: 9.6 mV Pacing threshold, ICD: 0.6 V at 0.5 ms Impedance, ICD: 913 ohms (74 ohms for shock vector) Pace the diaphragm at 10 V: No Atrial electrode: [employer] Dextrus Model# 4136 Serial# [id number] Bipolar, steroid-tipped, active-fixation IS-1 lead Access: Left axillary vein Location Right atrial appendage P wave, ICD: 4.3 mV Pacing threshold, pacemaker: 1.7 V at 0.5 ms Impedance, pacemaker: 538 ohms Pace the diaphragm at 10 V: No Pulse generator: [employer] Incepta Model# E162 Serial# [id number] DDDR ICD Location: Subcutaneous Defibrillation testing was [...] ~ 91 days. Provider: MAXIMO Leija Provider#: [id number] Consult attending physician: Estefanía Cross MD * Raul Salmeron RN - 01/11/2014 8:04 AM EDT Inpatient Post ICD Implant Teaching Note Verbal teaching was performed today nzlh-te-[id number] with the patient including the following: -Brief generalized teaching of how ICDs function, and the patient's specific indication for ICD implant -Activity restrictions post ICD implant -Remote monitoring of the ICD via telephone (patient was given [facility] Lat[facility] communicator today). -ICD insertion site wound [...] of occlusive lesion on cardiac catheterization, s/p OJN stenting 04/2013 -mildly positive troponin and CK [...] ICD placement today. Pt is insured with [employer]. No discharge needs identified at this time. Will continue to follow for coordination of care and discharge planning. Nora Schaeffer ROLL COATING MACHINE OPERATOR CRC/Stacy Pabon MSN BSN RN [facility] Office of Care Managment Pager [phone] * Yamile Raya RN - 01/10/2014 6:30 [...] One episode 7 beat run VT ~150bpm. Calmar warm, needed to urinate during that time. [...] for GERD Code Status: Full Code JORI AYAAL MD Cardiology S1 (pgr. [id number]) Cardiology Attending [...] in to convince him not to leave [facility] without an ICD. [...] Jennifer Harris - 01/06/2014 4:24 PM EDT Quoter Encounter Note Patient Name: Shahnaz Santiago : [id number] MR#: [id number] Admit Date: 01/06/2014 1:50 AM Hospital Day 0 days Narrative: Shahnaz was happy and open to senior application security consultant visit. Assessment: We had a long conversation of what he considered that has been militating against a health life-style: smoking. Moreover he was not a latter-day person based on his experiences over the years yet accepts prayers. Intervention and Outcome: We prayed for God's healing & strength. Follow-up: Yes Time in Direct Care: 35 mins Jennifer Whitmanlucie 01/06/2014 * Stacy Pabon RN - 01/06/2014 2:17 PM EDT Office of Care Management Clinical Lead Caster Patient Name: Shahnaz Santiago : 1950, 63 yrs Admission Date: 01/06/2014 1:50 AM Attending: Kenia Bauman MD Order to Admit: Signed Record reviewed and patient discussed with multidisciplinary team. Lives in [place], [place] 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 He is independent and drives. Insurance: No Insurance. (Guillermo Galen OPERATIONS SUPPORT REPRESENTATIVE notified) [email or web address] Medical/Surgical:63 yo [...] Pabon MSN RN Clinical Resource Coordinators Phone: [phone] Pager [phone] documented in this encounter H&P Notes * Edy Berry MD - 01/07/2014 5:02 PM EDT Inpatient Cardiac Electrophysiology Follow-up Note Date of Consultation: 01/07/2014 Admit Date: 01/06/2014 Place of Service: Inpatient Unit Reason for Consult: We are seeing Shahnaz Santiago for the evaluation of ventricular tachycardia Patient Active Problem List Diagnosis ??? ASCVD (arteriosclerotic cardiovascular disease) Overview Note: ?? Heart catheterization in [facility] [...] at [facility] [place] [facility] in [place], [place] May 02, 2013 during which he developed left shoulder and arm discomfort during submaximal exercise on the treadmill and after which he was converted to a pharmacologic test; nuclear imaging showed ejection fraction of 45% with a partially reversible inferior defect ?? Cath [facility] 05/13/2013: normal left [...] ASCVD (PCI to Cx, LAD; no hx TN) and tobacco use. 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 He has continued to go tocardiac rehab since then and had been doing well. On 01/04, he was walking in the [facility] when he developed sudden onset shortness of breath, which made him feel wobbly. He denied chest pain, palpitations (except for unusual pulsing in right ear lobe), or syncope though he felt weak and near-syncopal with exertion intermittently. His dyspnea remained present when he awoke the next morning, and he went to [facility], where ECG showed VT. He was cardioverted with return to NSR with 1st degree AVB, sub-mm STD in the lateral leads. His troponin was indeterminate. The patient was transferred to the [facility], where he [...] mg by mouth 2 times daily. ??? Speonk-3 Fatty Acids (FISH OIL) 500 mg Cap Take by mouth daily. ??? multivitamin capsule Take 1 capsule by mouth daily. ??? LANCETS MISC by Misc.(Non-Drug; Combo Route) route. ??? lamotrigine (LAMICTAL) 100 mg tablet Take 100 mg by mouth daily. ??? alprazolam (XANAX XR) 3 mg 24 hr tablet Take 3 mg by mouth every morning. ? ? lactobac cmb #6-iww-qkuobaweab (PROBIOTIC & ACIDOPHILUS) 300-250 million cell- mg [...] of cardiac arrest, pt believes due to TN at age of 53. Heavy smoker. His mother had PVD. 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 Heart catheterization in [facility] [...] at [facility] [place] [facility] in [place], [place] May 02, 2013 during which he developed left shoulder and arm discomfort during submaximal exercise on the treadmill and after which he was converted to a pharmacologic test; nuclear imaging showed ejection fraction of 45% with a partially reversible inferior defect ?? Cath [facility] 05/13/2013: normal left [...] ASCVD (PCI to Cx, LAD; no hx TN) and tobacco use. Andressa recently had a [...] the next morning, and he went to [facility], where ECG showed VT. He was cardioverted with return to NSR with 1st degree AVB, sub-mm STD in the lateral leads. His troponin was indeterminate. The patient was transferred to the [facility], where he [...] mg by mouth 2 times daily. ??? Speonk-3 Fatty Acids (FISH OIL) 500 mg Cap Take by mouth daily. ??? multivitamin capsule Take 1 capsule by mouth daily. ??? LANCETS MISC by Misc.(Non-Drug; Combo Route) route. ??? lamotrigine (LAMICTAL) 100 mg tablet Take 100 mg by mouth daily. ??? alprazolam (XANAX XR) 3 mg 24 hr tablet Take 3 mg by mouth every morning. ? ? lactobac cmb #4-hot-yqbibxcdic (PROBIOTIC & ACIDOPHILUS) 300-250 million cell- mg [...] of cardiac arrest, pt believes due to TN at age of 53. Heavy smoker. His mother had PVD. 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 He should ideally check pulse for any recurrent symptoms of VT (e.g. Weakness, SOB) and not delay hospital presentation as he did this time. Will discuss more with him in AM. * Kenia Bauman MD - 01/06/2014 2:45 AM EDT Cardiology Admission History and Physical Patient Name: Shahnaz Santiago Service: [address] Responsible Attending: Kenia Bauman MD, MD PCP: JENNIFER HARO MD PCP phone #: [phone] ID/Chief Complaint: 63 yo man with ASCVD [...] a chronic, has beenaffecting him 20 years, qjgyfgoen-qn-qobzajemfd, sternally located discomfort that is constant and [...] change from his baseline he went to [facility] ED for evaluation.There he was [...] =indeterminate). The patient was then transferred to [facility]. , OSH labs [...] at [facility] [place] [facility] in [place], [place] May 02, 2013 during which he developed left shoulder and arm discomfort during submaximal exercise on the treadmill and after which he was converted to a pharmacologic test; nuclear imaging showed ejection fraction of 45% with a partially reversible inferior defect ?? Cath [facility] 05/13/2013: normal left [...] Cap Take by mouth daily. Generic drug: Speonk-3 Fatty Acids Refills: 0 glipiZIDE 5 mg [...] by mouth daily. Generic drug: lactobac cmb #9-mql-bwrnovardg Refills: 0 rosuvastatin 20 mg Tab Commonly [...] ischemia Kalyan Babb, PGY-2 Team Pager # [phone] Cardiology Attending Addendum I have interviewed and [...] 01/12/2014 11:50 AM EDTAssociated Order(s): SCAN DOC: OPTICAL MECHANIC documented in this encounter Miscellaneous Notes * [...] a chronic, has beenaffecting him 20 years, ihyqqwhfd-op-lnbzjafccj, sternally located discomfort that is constant and [...] change from his baseline he went to [facility] ED for evaluation.There he was [...] =indeterminate). The patient was then transferred to [facility]. 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 The fgxxtvzb-uq-KTY < QRS-QRS just prior to the observed [...] Cap Take by mouth daily. Generic drug: Speonk-3 Fatty Acids Refills: 0 glipiZIDE 5 mg [...] by mouth daily. Generic drug: lactobac cmb #3-lvs-kxqjtnlntx Refills: 0 rosuvastatin 20 mg Tab Commonly [...] 8:10 AM Kit Self MD Leb Cardio [facility] Follow-Up Appointments Date and Time Provider and Specialty Location Jan 13, 2014 @ 2:[address] [facility] Your Inpatient Doctor: Kenia Bauman MD Your Primary Care Provider: JENNIFER HARO MD [phone] For questions regarding this document or issues relating to this hospitalization on the Medical Service, please contact your inpatient physician through the [facility] Multimedia Designer . Issues afterhours and on weekends will be handled by the Hospitalist staff on-call. Future Appointments and Orders Future Appointments: Provider: Department: Dept Phone: Center: 02/07/2014 8:10 AM Kit Self MD Cardiology [phone] [facility] Joint Appt Nurse One Cardiology Intake, NAHUN MOTLEY [phone] [facility] 04/10/2014 9:30 AM Raul Salmeron RN Cardiology [phone] [facility] For questions regarding this document or issues relating to this hospitalization on the Medical Service, please contact your inpatient physician through the [facility] Multimedia Designer . Issues afterhours and on weekends will be handled by the Director Of Vital Statistics staff on-call. Signed: KENIA BAUMAN MD * [...] the out pt CR program at [facility]. He was admitted with LLOYD and VT. Cardiac cath showed no ischemic etiology of sx. Being considered for ICD. Will refer him back to the [facility] prog at discharge * Miscellaneous - Provider, Skyler - 01/07/2014 2:41 PM EDT * Op Note - José Manuel Cole MD - 01/06/2014 5:34 PM EDT Electrophysiology Study Multimedia Designer: José Manuel Cole MD Indication: Ventricular tachycardia [...] no pre-excitation or conduction aberrancy identified. The umhobvkl-ji-QHT < QRS-QRS just prior to the observed [...] AM EST Hospital Encounter [place] [address] Arrived 08/09/2024 10:00 AM EDT Hospital Encounter Non[place] [address] Arrived documented as of this encounter Procedures Procedure Name Priority Date/Time Associated Diagnosis Comments OPTICAL MECHANIC SCAN 01/12/2014 11:50 AM EDT POCT GLUCOSE [...] Routine 01/07/20 3:58 PM EDT CARDIAC ENZYMES ([facility]) Routine 01/06/2014 12:40 PM EDT POCT GLUCOSE Routine 01/06/2014 12:15 PM EDT CARDIAC ENZYMES ([facility]) Routine 01/06/2014 11:30 [...] in this encounter Results * SCAN DOC: OPTICAL MECHANIC (01/12/2014 11:50 AM EDT) Anatomical Region Laterality Modality Other Narrative 01/12/2014 11:53 AM EDT Procedure Note Provider, Scanning - 01/12/2014 11:50 AM EDT Scanning Provider MEDIA MGR SCAN EXT O RDR/RSLT * (ABNORMAL) POCT Glucose (01/11/2014 11:55 AM EDT) Glucose, POC 285(H) 60 - 199 mg/dL MONICA MILTONZINA Comment: Supplemental ranges: <140 mg/dL before meals <180 mg/dL all other times of the day Blood specimen (specimen) 01/11/2014 11:55 AM EDT 01/11/2014 11:55 AM EDT Kenia Bauman MD POINT OF CARE TEST O RDERABLES [facility] * XR chest routine PA [...] Lab Kenia Bauman MD CHEMISTRY ORDERABLES CERDELMAR BENITEZIUM * Basic Metabolic Panel (non-fasting) (01/11/2014 3:56 AM EDT) Glucose 137 60 - 199 mg/dL CERNER MILLENNIUM Comment:Diabetes: >=200 mg/d L plus symptoms Blood Urea Nitrogen 18 10 - 20 mg/dL CERNER MILLENNIUM Creatinine 0.83 0.80 - 1.50 mg/dL CERNER MILLENNIUM Comment: Please note that the pediatric reference intervals supplied above were not validated at [facility]. Results from pediatric [...] the following links into your internet browser. [email or web address] Blood specimen (specimen) 01/11/2014 3:56 AM EDT 01/11/2014 4:21 AM EDT Narrative Resulting Agency Comment Spec In Lab Kenia Bauman MD CHEMISTRY ORDERABLES Performing Organization Address [facility] de Phone Number MONICA PERALTA * POCT Glucose (01/11/2014 3:46 AM EDT) Glucose, POC 137 60 - 199 mg/dL [facility] Comment: Supplemental ranges: <140 mg/dL before meals <180 mg/dL all other times of the day Blood specimen (specimen) 01/11/2014 3:46 AM EDT 01/11/2014 3:46 AM EDT Kenia Bauman MD POINT OF CARE TEST O RDERABLES Performing Organization Address [facility] de Phone Number STACYDELMAR BENITEZIUM * POCT Glucose (01/10/2014 11:57 PM EDT) Glucose, POC 173 60 - 199 mg/dL [facility] Comment: Supplemental ranges: <140 mg/dL before meals <180 mg/dL all other times of the day Blood specimen (specimen) 01/10/2014 11:57 PM EDT 01/10/2014 11:57 PM EDT Kenia Bauman MD POINT OF CARE TEST O RDERABLES Performing Organization Address [facility] de Phone Number MONICA BENITEZIUM * (ABNORMAL) POCT Glucose (01/10/2014 8:31 PM EDT) Glucose, POC 201(H) 60 - 199 mg/dL [facility] Comment: Supplemental ranges: <140 mg/dL before meals <180 mg/dL all other times of the day Blood specimen (specimen) 01/10/2014 8:31 PM EDT 01/10/2014 8:31 PM EDT Kenia Bauman MD POINT OF CARE TEST O RDERABLES Performing Organization Address [facility] Co de Phone Number [facility] * POCT Glucose (01/10/2014 6:04 PM EDT) [facility] Signature Glucose, POC 164 60 - 199 mg/dL [facility] Comment: Supplemental ranges: <140 mg/dL before meals <180 mg/dL all other times of the day Blood specimen (specimen) 01/10/2014 6:04 PM EDT 01/10/2014 6:04 PM EDT Kenia Bauman MD POINT OF CARE TEST O SAMPSON Performing Organization Address [facility] Phone Number [facility] * Electrophysiology Procedure (01/10/2014 5:19 PM [...] with O-silk. Final Parameters: Ventricular electrode: ?? [employer] Fancy Gap Model# 0292 Serial# [id number] ??Bipolar, steroid-tipped, active-fixation, ??single coil DF-4 lead ??Access: ? Left axillary vein ??Location: ?RV apex ??R wave, ICD: ? 9.6 mV ??Pacing threshold, ICD: ? 0.6 V at 0.5 ms ??Impedance, ICD: ? 913 ohms (74 ohms for shock vector) ??Pace the diaphragm at 10 V: ??No Atrial electrode: ?? [employer] De[employer]rus Model# 4136 Serial# [id number] ??Bipolar, steroid-tipped, active-fixation IS-1 lead ??Access: ? Left axillary vein ??Location ? Right atrial appendage ??P wave, ICD: ? 4.3 mV ??Pacing threshold, pacemaker: ??1.7 V at 0.5 ms ??Impedance, pacemaker: ??538 ohms ??Pace the diaphragm at 10 V: ??No Pulse generator: ? [employer] Incepta Model# E162 Serial# [id number] DDDR ICD ??Location: ?Subcutaneous Defibrillation testing was [...] major muscle withO-silk. Final Parameters: Ventricular electrode: [employer] Fancy Gap Model# 0292 Serial# [id number] Bipolar, steroid-tipped, active-fixation, single coil DF-4 lead Access: Left axillary vein Location: RV apex R wave, ICD: 9.6 mV Pacing threshold, ICD: 0.6 V at 0.5 ms Impedance, ICD: 913 ohms (74 ohms for shock vector) Pace the diaphragm at 10 V: No Atrial electrode: [employer] Dextrus Model# 4136 Serial# [id number] Bipolar, steroid-tipped, active-fixation IS-1 lead Access: Left axillary vein Location Right atrial appendage P wave, ICD: 4.3 mV Pacing threshold, pacemaker: 1.7 V at 0.5 ms Impedance, pacemaker: 538 ohms Pace the diaphragm at 10 V: No Pulse generator: [employer] Incepta Model# E162 Serial# [id number] DDDR ICD Location: Subcutaneous Defibrillation testing was [...] Glucose, POC 218(H) 60 - 199 mg/dL [facility] Comment: Supplemental ranges: <140 mg/dL before meals <180 mg/dL all other times of the day Blood specimen (specimen) 01/10/2014 11:39 AM EDT 01/10/2014 11:39 AM EDT Kenia Bauman MD POINT OF CARE TEST O RDERALOREE Performing Organization Address [facility] de Phone Number MONICA BENITEZIUM * (ABNORMAL) POCT Glucose (01/10/2014 7:36 AM EDT) Glucose, POC 242(H) 60 - 199 mg/dL [facility] Comment: Supplemental ranges: <140 mg/dL before meals <180 mg/dL all other times of the day Blood specimen (specimen) 01/10/2014 7:36 AM EDT 01/10/2014 7:36 AM EDT Kenia Bauman MD POINT OF CARE TEST O SAM[place]ON Performing Organization Address [facility] de Phone Number MONICA BENITEZIUM * POCT Glucose (01/10/2014 4:25 AM EDT) Glucose, POC 153 60 - 199 mg/dL [facility] Comment: Supplemental ranges: <140 mg/dL before meals <180 mg/dL all other times of the day Blood specimen (specimen) 01/10/2014 4:25 AM EDT 01/10/2014 4:25 AM EDT Kenia Bauman MD POINT OF CARE TEST O [place]ON Performing Organization Address [facility] de Phone Number MONICA PERALTA * (ABNORMAL) Differential, Automated (01/10/2014 4:21 AM EDT) Neutrophil % 45.9 34.0 - 71.0 % [facility] Neutrophil Absolute 4.06 1.50 - 6.30 x10(3)/mc [...] MD HEMATOLOGY ORDERABLE S Performing Organization Address [facility] Co de Phone Number [facility] * (ABNORMAL) Magnesium (01/10/2014 4:21 AM EDT) Magnesium 0.67(L) 0.69 - 1.07 mmol/L CERNER MILLENNIUM Blood specimen (specimen) 01/10/2014 4:21 AM EDT 01/10/2014 4:36 AM EDT Narrative Resulting Agency Comment Spec In Lab Kenia Bauman MD CHEMISTRY ORDERABLES Performing Organization Address [facility] de Phone Number CERNER MILLENNIUM * Basic Metabolic Panel (non-fasting) (01/10/2014 4:21 AM EDT) Glucose 161 60 - 199 mg/dL CERNER MILLENNIUM Comment:Diabetes: >=200 mg/d L plus symptoms Blood Urea Nitrogen 17 10 - 20 mg/dL CERNER MILLENNIUM Creatinine 0.91 0.80 - 1.50 mg/dL CERNER MILLENNIUM Comment: Please note that the pediatric reference intervals supplied above were not validated at [facility]. Results from pediatric [...] the following links into your internet browser. [email or web address] Blood specimen (specimen) 01/10/2014 4:21 AM EDT 01/10/2014 4:36 AM EDT Narrative Resulting Agency Comment Spec In Lab Kenia Bauman MD CHEMISTRY ORDERABLES Performing Organization Address [facility] de Phone Number [facility] * POCT Glucose (01/09/2014 11:25 PM EDT) Glucose, POC 164 60 - 199 mg/dL [facility] Comment: Supplemental ranges: <140 mg/dL before meals <180 mg/dL all other times of the day Blood specimen (specimen) 01/09/2014 11:25 PM EDT 01/09/2014 11:25 PM EDT Kenia Bauman MD POINT OF CARE TEST O RDERABLES Performing Organization Address [facility] Co de Phone Number [facility] * (ABNORMAL) POCT Glucose (01/09/2014 8:03 PM EDT) Glucose, POC 204(H) 60 - 199 mg/dL [facility] Comment: Supplemental ranges: <140 mg/dL before meals <180 mg/dL all other times of the day Blood specimen (specimen) 01/09/2014 8:03 PM EDT 01/09/2014 8:03 PM EDT Kenia Bauman MD POINT OF CARE TEST O RDERABLES Performing Organization Address [facility] [facility] Co de Phone Number [facility] * (ABNORMAL) POCT Glucose (01/09/2014 4:34 PM EDT) Glucose, POC 231(H) 60 - 199 mg/dL [facility] Comment: Supplemental ranges: <140 mg/dL before meals <180 mg/dL all other times of the day Blood specimen (specimen) 01/09/2014 4:34 PM EDT 01/09/2014 4:34 PM EDT Kenia Bauman MD POINT OF CARE TEST O RDERALOREE Performing Organization Address [facility] de Phone Number [facility] * (ABNORMAL) POCT Glucose (01/09/2014 11:44 AM EDT) Glucose, POC 280(H) 60 - 199 mg/dL [facility] Comment: Supplemental ranges: <140 mg/dL before meals <180 mg/dL all other times of the day Blood specimen (specimen) 01/09/2014 11:44 AM EDT 01/09/2014 11:44 AM EDT Kenia Bauman MD POINT OF CARE TEST O RDERALOREE Performing Organization Address [facility] de Phone Number [facility] * POCT Glucose (01/09/2014 7:51 AM EDT) Glucose, POC 148 60 - 199 mg/dL [facility] Comment: Supplemental ranges: <140 mg/dL before meals <180 mg/dL all other times of the day Blood specimen (specimen) 01/09/2014 7:51 AM EDT 01/09/2014 7:51 AM EDT Kenia Bauman MD POINT OF CARE TEST O RDERABLES Performing Organization Address [facility] Co de Phone Number MONICA BEINTEZIUM * Basic Metabolic Panel (non-fasting) (01/09/2014 4:32 AM EDT) [facility] Glucose 124 60 - 199 mg/dL CERNER MILLENNIUM Comment:Diabetes: >=200 mg/d L plus symptoms Blood Urea Nitrogen 15 10 - 20 mg/dL CERNER MILLENNIUM Creatinine 0.87 0.80 - 1.50 mg/dL CERNER MILLENNIUM Comment: Please note that the pediatric reference intervals supplied above were not validated at [facility]. Results from pediatric [...] the following links into your internet browser. [email or web address] (dba [email or web address]).Autrement (HotelHotel)/DHnkdep [email or web address] (dba Craftsy).Autrement (HotelHotel)/DHMCnkf Blood specimen (specimen) 01/09/2014 4:32 AM EDT [...] MILLENNIUM Hemoglobin 14.5 13.7 - 17.5 gm/dL [facility] MILLENNIUM Comment:Repeated & verified Hematocrit 43.0 40.0 - 51.0 % [facility] MILLENNIUM Mean Cell Volume 89.0 79.0 - 92.0 fL [facility] MILLENNIUM Mean Cell Hemoglobin 30.0 25.6 - 32.2 pg CERNER MILLENNIUM Mean Cell Hemoglobin Concentration 33.7 32.0 - 36.5 gm/dL [facility] MILLENNIUM Platelet 184 145 - 370 x10(3)/mc L CERNER MILLENNIUM RDW Standard Deviation 47.4(H) 35.0 - 46.0 fL CERNER MILLENNIUM RDW coefficient of variation 14.8(H) 10.9 - 14.4 % [facility] MILLENNIUM Mean Platelet Volume 10.3 9.0 - 12.0 fL [facility] Blood specimen (specimen) 01/09/2014 4:32 AM EDT 01/09/2014 4:38 AM EDT Narrative Resulting Agency Comment Spec In Lab Kenia Bauman MD HEMATOLOGY ORDERABLE S Performing Organization Address [facility] Co de Phone Number [facility] * Magnesium (01/09/2014 4:32 AM EDT) Pathologist [facility] [place] Magnesium 0.76 0.69 - 1.07 mmol/L [facility] Blood specimen (specimen) 01/09/2014 4:32 AM EDT 01/09/2014 4:38 AM EDT Narrative Resulting Agency Comment Spec In Lab Kenia Bauman MD CHEMISTRY ORDERABLES Performing Organization Address [facility] Co de Phone Number [facility] * POCT Glucose (01/09/2014 4:19 AM EDT) Glucose, POC 114 60 - 199 mg/dL [facility] Comment: Supplemental ranges: <140 mg/dL before meals <180 mg/dL all other times of the day Blood specimen (specimen) 01/09/2014 4:19 AM EDT 01/09/2014 4:19 AM EDT Kenia Bauman MD POINT OF CARE TEST O RDERABLES Performing Organization Address [facility] de Phone Number [facility] * POCT Glucose (01/09/2014 1:41 AM EDT) Glucose, POC 155 60 - 199 mg/dL [facility] Comment: Supplemental ranges: <140 mg/dL before meals <180 mg/dL all other times of the day Blood specimen (specimen) 01/09/2014 1:41 AM EDT 01/09/2014 1:41 AM EDT Kenia Bauman MD POINT OF CARE TEST O RDERABLES Performing Organization Address [facility] de Phone Number [facility] * (ABNORMAL) POCT Glucose (01/08/2014 11:19 PM EDT) Glucose, POC 252(H) 60 - 199 mg/dL [facility] Comment: Supplemental ranges: <140 mg/dL before meals <180 mg/dL all other times of the day Blood specimen (specimen) 01/08/2014 11:19 PM EDT 01/08/2014 11:19 PM EDT Kenia Bauman MD POINT OF CARE TEST O SAMPSON Performing Organization Address [facility] de Phone Number [facility] * (ABNORMAL) POCT Glucose (01/08/2014 7:50 PM EDT) Glucose, POC 205(H) 60 - 199 mg/dL [facility] Comment: Supplemental ranges: <140 mg/dL before meals <180 mg/dL all other times of the day Blood specimen (specimen) 01/08/2014 7:50 PM EDT 01/08/2014 7:50 PM EDT Kenia Bauman MD POINT OF CARE TEST O RDERABLES Performing Organization Address [facility] Co de Phone Number [facility] * POCT Glucose (01/08/2014 5:17 PM EDT) Glucose, POC 194 60 - 199 mg/dL [facility] Comment: Supplemental ranges: <140 mg/dL before meals <180 mg/dL all other times of the day Blood specimen (specimen) 01/08/2014 5:17 PM EDT 01/08/2014 5:17 PM EDT Kenia Bauman MD POINT OF CARE TEST O RDERABLES Performing Organization Address [facility] Co de Phone Number [facility] * (ABNORMAL) POCT Glucose (01/08/2014 2:21 PM EDT) Glucose, POC 230(H) 60 - 199 mg/dL [facility] Comment: Supplemental ranges: <140 mg/dL before meals <180 mg/dL all other times of the day Blood specimen (specimen) 01/08/2014 2:21 PM EDT 01/08/2014 2:21 PM EDT Kenia Bauman MD POINT OF CARE TEST O RDERABLES Performing Organization Address [facility] de Phone Number [facility] * (ABNORMAL) POCT Glucose (01/08/2014 12:04 PM EDT) Glucose, POC 240(H) 60 - 199 mg/dL [facility] Comment: Supplemental ranges: <140 mg/dL before meals <180 mg/dL all other times of the day Blood specimen (specimen) 01/08/2014 12:04 PM EDT 01/08/2014 12:04 PM EDT Kenia Bauman MD POINT OF CARE TEST O RDERABLES Performing Organization Address [facility] Co de Phone Number [facility] * POCT Glucose (01/08/2014 7:56 AM [...] Bauman MD CHEMISTRY ORDERABLES Performing Organization Address [facility] de Phone Number CERNER MILLENNIUM * Differential, [...] Kenia Bauman MD HEMATOLOGY ORDERABLE S CERNER [place] [place]ENNIUM * (ABNORMAL) Basic Metabolic Panel (non-fasting) (01/08/2014 7:03 AM EDT) Glucose 133 60 - 199 mg/dL CERNER MILLENNIUM Comment:Diabetes: >=200 mg/d L plus symptoms Blood Urea Nitrogen 16 10 - 20 mg/dL CERNER MILLENNIUM Creatinine 0.74(L) 0.80 - 1.50 mg/dL CERNER MILLENNIUM Comment: Please note that the pediatric reference intervals supplied above were not validated at [facility]. Results from pediatric [...] the following links into your internet browser. [email or web address] ([email or web address] [email or web address]).[email or web address] ([email or web address])/[email or web address] [email or web address] Blood specimen (specimen) 01/08/2014 7:03 AM EDT 01/08/2014 7:08 AM EDT Narrative Resulting Agency Comment Spec In Lab Kenia Bauman MD CHEMISTRY ORDERABLES Performing Organization Address [facility] Co de Phone Number [facility] * (ABNORMAL) POCT Glucose (01/08/2014 3:55 AM EDT) Glucose, POC 219(H) 60 - 199 mg/dL [facility] Comment: Supplemental ranges: <140 mg/dL before meals <180 mg/dL all other times of the day Blood specimen (specimen) 01/08/2014 3:55 AM EDT 01/08/2014 3:55 AM EDT Kenia Bauman MD POINT OF CARE TEST O RDERABLES Performing Organization Address [facility] de Phone Number [facility] * POCT Glucose (01/07/2014 11:51 PM EDT) Glucose, POC 153 60 - 199 mg/dL [facility] Comment: Supplemental ranges: <140 mg/dL before meals <180 mg/dL all other times of the day Blood specimen (specimen) 01/07/2014 11:51 PM EDT 01/07/2014 11:51 PM EDT Kenia Bauman MD POINT OF CARE TEST O RDERABLES Performing Organization Address [facility] de Phone Number [facility] * POCT Glucose (01/07/2014 9:32 PM EDT) Glucose, POC 190 60 - 199 mg/dL [facility] Comment: Supplemental ranges: <140 mg/dL before meals <180 mg/dL all other times of the day Blood specimen (specimen) 01/07/2014 9:32 PM EDT 01/07/2014 9:32 PM EDT Kenia Bauman MD POINT OF CARE TEST O RDERABLES Performing Organization Address [facility] Co de Phone Number [facility] * (ABNORMAL) POCT Glucose (01/07/2014 7:36 PM EDT) Glucose, POC 223(H) 60 - 199 mg/dL [facility] Comment: Supplemental ranges: <140 mg/dL before meals <180 mg/dL all other times of the day Blood specimen (specimen) 01/07/2014 7:36 PM EDT 01/07/2014 7:36 PM EDT Kenia Bauman MD POINT OF CARE TEST O RDMARY Performing Organization Address [facility] de Phone Number [facility] * POCT Glucose (01/07/2014 5:32 PM EDT) Glucose, POC 180 60 - 199 mg/dL [facility] Comment: Supplemental ranges: <140 mg/dL before meals <180 mg/dL all other times of the day Blood specimen (specimen) 01/07/2014 5:32 PM EDT 01/07/2014 5:32 PM EDT Kenia Bauman MD POINT OF CARE TEST O SAM[place]ON Performing Organization Address [facility] de Phone Number [facility] * (ABNORMAL) POCT Glucose (01/07/2014 1:24 PM EDT) Glucose, POC 240(H) 60 - 199 mg/dL [facility] Comment: Supplemental ranges: <140 mg/dL before meals <180 mg/dL all other times of the day Blood specimen (specimen) 01/07/2014 1:24 PM EDT 01/07/2014 1:24 PM EDT Kenia Bauman MD POINT OF CARE TEST O SAM[place] Performing Organization Address [facility] de Phone Number MONICA PERALTA * (ABNORMAL) Magnesium (01/07/2014 10:00 AM EDT) Magnesium 0.66(L) 0.69 - 1.07 mmol/L [facility] Blood specimen (specimen) 01/07/2014 10:00 AM EDT 01/07/2014 10:17 AM EDT Narrative Resulting Agency Comment Spec In Lab Kenia Bauman MD CHEMISTRY ORDERABLES Performing Organization Address [facility] de Phone Number [facility] BENITEZL[facility]EC[facility] * Potassium (01/07/2014 10:00 AM EDT) Potassium 4.3 3.5 - 5.0 mmol/L [facility] Comment: Please note: ??Patients with [...] CHEMISTRY ORDERABLES Performing Organization Address [facility] de Phone Number [facility] * POCT Glucose (01/07/2014 9:23 AM EDT) Glucose, POC 178 60 - 199 mg/dL [facility] Comment: Supplemental ranges: <140 mg/dL before meals <180 mg/dL all other times of the day Blood specimen (specimen) 01/07/2014 9:23 AM EDT 01/07/2014 9:23 AM EDT Kenia Bauman MD POINT OF CARE TEST O RDERABLES Performing Organization Address [facility] de Phone Number [facility] * Differential, Automated (01/07/2014 3:40 AM EDT) Neutrophil % 60.4 34.0 - 71.0 % [facility] Neutrophil Absolute 5.37 1.50 - 6.30 x10(3)/mcL [facility] MILLEN[facility] Lymph % 29.1 19.0 - 53.0 % [facility] Lymphocytes Abs 2.6 1.0 - 3.6 x10(3)/mcL [...] MD HEMATOLOGY ORDERABLE S Performing Organization Address [facility] de Phone Number [facility] MILLENNIUM * (ABNORMAL) Magnesium (01/07/2014 3:40 AM EDT) Magnesium 0.61(L) 0.69 - 1.07 mmol/L CERNER MILLENNIUM Blood specimen (specimen) 01/07/2014 3:40 AM EDT 01/07/2014 3:43 AM EDT Narrative Resulting Agency Comment Spec In Lab Kenia Bauman MD CHEMISTRY ORDERABLES Performing Organization Address [facility] de Phone Number [facility] * (ABNORMAL) Basic Metabolic Panel (non-fasting) (01/07/2014 3:40 AM EDT) Glucose 93 60 - 199 mg/dL CERNER MILLENNIUM Comment:Diabetes: >=200 mg/d L plus symptoms Blood Urea Nitrogen 20 10 - 20 mg/dL CERNER MILLENNIUM Creatinine 0.81 0.80 - 1.50 mg/dL CERNER MILLENNIUM Comment: Please note that the pediatric reference intervals supplied above were not validated at [facility]. Results from pediatric [...] the following links into your internet browser. [email or web address] Blood specimen (specimen) 01/07/2014 3:40 AM EDT 01/07/2014 3:43 AM EDT Narrative Resulting Agency Comment Spec In Lab Kenia Bauman MD CHEMISTRY ORDERABLES Performing Organization Address [facility] de Phone Number [facility] * POCT Glucose (01/07/2014 3:39 AM EDT) Glucose, POC 95 60 - 199 mg/dL [facility] Comment: Supplemental ranges: <140 mg/dL before meals <180 mg/dL all other times of the day Blood specimen (specimen) 01/07/2014 3:39 AM EDT 01/07/2014 3:39 AM EDT Kenia Bauman MD POINT OF CARE TEST O RDERABLES Performing Organization Address [facility] de Phone Number [facility] * POCT Glucose (01/06/2014 11:40 PM EDT) Glucose, POC 130 60 - 199 mg/dL [facility] Comment: Supplemental ranges: <140 mg/dL before meals <180 mg/dL all other times of the day Blood specimen (specimen) 01/06/2014 11:40 PM EDT 01/06/2014 11:40 PM EDT Kenia Bauamn MD POINT OF CARE TEST O RDERABLES Performing Organization Address [facility] de Phone Number [facility] [employer] * POCT Glucose (01/06/2014 9:23 PM EDT) Glucose, POC 173 60 - 199 mg/dL [facility] [employer] Comment: Supplemental ranges: <140 mg/dL before meals <180 mg/dL all other times of the day Blood specimen (specimen) 01/06/2014 9:23 PM EDT 01/06/2014 9:23 PM EDT Kenia Bauman MD POINT OF CARE TEST O RDERALOREE Performing Organization Address [facility] de Phone Number [facility] [employer] * POCT Glucose (01/06/2014 6:42 PM EDT) Glucose, POC 125 60 - 199 mg/dL [facility] [employer] Comment: Supplemental ranges: <140 mg/dL before meals <180 mg/dL all other times of the day Blood specimen (specimen) 01/06/2014 6:42 PM EDT 01/06/2014 6:42 PM EDT Kenia Bauman MD POINT OF CARE TEST O RDERABLES Performing Organization Address [facility] de Phone Number [facility] [employer] * Electrophysiology Procedure (01/06/2014 5:20 PM EDT) [...] Narrative 01/09/2014 7:14 AM EDT ?[facility] ? Cardiac Catheterization/Intervention Report ? Patient Name: Pamela, Shahnaz ? Procedure Date: 01/06/2014 ? A #: [id number] ? Primary Physician: Jaron Jarquin ? Case #: [id number] ? File Name: [id number] ? Catheterization Order Number: [id number] ? [facility] ? Final Report [place], [place] ? Patient Name: ? Shahnaz Santiago ? ID#: ?[id number] ? : ?1950 ? Procedure Date: ? January 06, 2014 ? Case #: ? 14- [id number] ? Room: ? 1 ? Case Physician: ? Jaron Jarquin MJosephDJoseph ? Start: ?14:40 ?Fellow: ? Jennifer Argueta, ?Admission: ??01/06/2014 ?M.D. ? Referring Physician: ??Jennifer Haro M.D. ? Procedures: ?* Coronary Angiography ?* Left Heart Catheterization ?* Coronary Flow [place] Measurement ?* Coronary Instantaneous Wave-Free Ratio ?* [...] Jarquin II, MD - 01/09/2014 [facility] Cardiac Catheterization/Intervention Report Patient Name: Shahnaz Santiago Procedure Date: 01/06/2014 A #: [id number] Primary Physician: Jaron Jarquin Case #: File Name: [id number] Catheterization Order Number: [id number] [facility] FinalReport [place], [place] Patient Name: Shahnaz Santiago ID#:[id number] :1950 Procedure Date: January 06, 2014 Case #: Room: 1 Case Physician: Jaron Jarquin M.D. Start: 14:40 Fellow: Jennifer Argueta, Admission:01/06/2014 Adriana Referring Physician: Jennifer Haro M.D. Procedures: * Coronary Angiography * Left Heart Catheterization * Coronary Flow [place] Measurement * Coronary Instantaneous Wave-Free Ratio * [...] damage. Diagnosis of acute, evolving or recent [place] requires a typical rise and gradual fall [...] consensus document of the Joint Society of Cardiology/[place] College of Cardiology Committee for the redefinition of myocardial infarction. ??Journal of the [place] College of Cardiology 2000; 36: 959-969] Creatine [...] CARE TEST O RDERABLES Performing Organization Address [facility] Co de Phone Number MONICA PERALTA * [...] damage. Diagnosis of acute, evolving or recent [place] requires a typical rise and gradual fall [...] consensus document of the Joint Society of Cardiology/[place] College of Cardiology Committee for the redefinition of myocardial infarction. ??Journal of the [place] College of Cardiology 2000; 36: 959-969] Creatine Kinase 132 0 - 200 unit/L MONICA PERALTA Blood specimen (specimen) 01/06/2014 11:30 AM EDT 01/06/2014 11:45 AM EDT Narrative Resulting Agency Comment Spec In Lab Kenia Bauman MD CHEMISTRY ORDERABLES Performing Organization Address [facility]/ZIP Co de Phone Number MONICA PERALTA [...] MD HEMATOLOGY ORDERABLE S Performing Organization Address [facility] de Phone Number [facility] * LDL Cholesterol, Direct (01/06/2014 11:30 AM EDT) LDL Cholesterol, Direct 13 <=99 mg/dL [facility] Comment: The National Cholesterol Education Program (NCEP) has set the following guidelines for LDL Cholesterol: Reference range: ?? Optimal: ?<100 mg/dL ?? Near Optimal/Above Optimal: ?? 100-129 mg/dL ?? Borderline high: ?130-159 mg/dL ?? High: ? 160-189 mg/dL ?? Very high: ?>oh=796 mg/dL TATI 2001: 285(19):7703-3797 Blood specimen (specimen) 01/06/2014 11:30 AM EDT 01/06/2014 11:45 AM EDT Narrative Resulting Agency Comment Spec In Lab Kenia Bauman MD CHEMISTRY ORDERABLES Performing Organization Address [facility] de Phone Number [facility] * Echocardiogram Transthoracic(Leb) (01/06/2014 10:29 AM EDT) EF 56 HEARTLAB SYSTEM Anatomical Region Laterality Modality Other 01/06/2014 Narrative 01/06/2014 10:41 AM EDT Procedure: ? Transthoracic Echocardiogram Patient: ? PAMELA CHRISTIE P ? (Age): 1950(63) Med Rec#: ?[id number] ? Sex: ?M ? Site Loc: ?[facility] ? Ht / Wt: ??185(cm)/92(kg) Pt. Loc: ? CCU ?BSA: ?2.17 Study Date: ?01/06/2014 ? Pt. Type: Inpatient Tape: ? Referring: Kenia Bauman ([id number]) Referring: BRUCE Filter Press Supervisor: Jodie Givens Diagnosis:CPT Code(s): ??Echo Full (29661), ??Spectral Doppler (74063), Color Doppler (23477), Indication(s): ??Tachycardia Rhythm: HR ?BP ?114/63 ?? [...] ? Mid-Inferior ?Normal ? Mid-Inferoseptal ?Normal ? [place]-Septal ? Normal ? [place]-Anterior ? Normal ? [place]-Lateral ?Normal ? [place]-Inferior ? Normal ? [place]-Tip ?Normal ? Chambers ?Value ?Units (Range) ? [...] 01/06/2014 10:41:12 Images reviewed and interpretation verified [facility] Procedure Note Warren Atkinson MD - 01/06/2014 Procedure: Transthoracic Echocardiogram Patient: PAMELA Gordon (Age): 1950(63) Med Rec#: [id number] Sex: M Site Loc: [facility] Ht / Wt: 185(cm)/92(kg) Pt. Loc: CCU BSA: 2.17 Study Date: 01/06/2014 Pt. Type: Inpatient Tape: Referring: Kenia Bauman ([id number]) Referring: BRUCE [employer] Press Supervisor: Jodie Givens Diagnosis:CPT Code(s): Echo Full (12922), Spectral Doppler (65786), Color Doppler (45970), Indication(s): Tachycardia Rhythm: HR BP 114/63 SUMMARY: [...] Normal Mid-Posterolateral Normal Mid-Inferior Normal Mid-Inferoseptal Normal [place]-Septal Normal [place]-Anterior Normal [place]-Lateral Normal [place]-Inferior Normal [place]-Tip Normal Chambers Value Units (Range) EF Bi-p [...] 01/06/2014 10:41:12 Images reviewed and interpretation verified [facility] Kenia Bauman MD ECHO ORDERABLES * EKG 12 Lead (01/06/2014 9:29 AM EDT) Ventricular rate 61 BPM MUSE SYSTEM Atrial Rate 61 BPM MUSE SYSTEM P-R Interval 210 ms MUSE SYSTEM QRS Duration 128 ms MUSE SYSTEM Q-T Interval 450 ms MUSE SYSTEM QTC Calculated (Bezet) 453 ms MUSE SYSTEM Calculated P [place] 36 degrees MUSE SYSTEM Calculated R [place] -51 degrees MUSE SYSTEM Calculated T [place] -62 degrees MUSE SYSTEM INTERPRETATION Sinus rhythm [...] * POCT Glucose (01/06/2014 8:28 AM EDT) [facility] Glucose, POC 104 60 - 199 mg/dL [facility] [employer] Comment: Supplemental ranges: <140 mg/dL before meals <180 mg/dL all other times of the day Blood specimen (specimen) 01/06/2014 8:28 AM EDT 01/06/2014 8:28 AM EDT Kenia Bauman MD POINT OF CARE TEST O RDERABLES Performing Organization Address City/[facility]/ZIP Co de Phone Number [facility] [employer] * XR chest routine PA & lateral [...] AM EDT) Creatinine, Urine 167 mg/dL MONICA Ivaco [facility] MillsZINA Urine specimen (specimen) 01/06/2014 3:06 AM EDT 01/06/2014 3:15 AM EDT Narrative Resulting Agency Comment Spec In Lab Kenia Bauman MD URINE ORDERABLES Performing Organization Address [facility] Co de Phone Number [facility] * Sodium, urine, random (01/06/2014 3:06 AM EDT) Sodium, Urine 85 mmol/L MONICA [employer] MillsZINA Urine specimen (specimen) 01/06/2014 3:06 AM EDT 01/06/2014 3:15 AM EDT Narrative Resulting Agency Comment Spec In Lab Kenia Bauman MD URINE ORDERABLES [facility] [employer] * (ABNORMAL) Urinalysis with microscopic (01/06/2014 3:06 AM EDT) Glucose, Urine Dipstick Negative Negative mg/dL [facility] Protein, Urine Dipstick 30(A) Negative mg/dL CERNER [...] Urine Dipstick Hazy(A) Clear CERNER MILLENNIUM Specific Nathalie Urine Automated 1.019 1.002 - 1.030 CERNER [...] Lab Kenia Bauman MD URINE ORDERABLES CERDELMAR BENITEZIUM * (ABNORMAL) Cardiac Enzymes (01/06/2014 2:50 AM EDT) Troponin-T 0.05(H) <=0.03 ng/mL CERNER MILLENNIUM Comment: 0.03 ng/mL: Represents the 99th percentile upper reference limit for normals. >0.03 ng/mL: Elevated cardiac troponin T level indicative of myocardial damage. Diagnosis of acute, evolving or recent [place] requires a typical rise and gradual fall [...] consensus document of the Joint Society of Cardiology/[place] College of Cardiology Committee for the redefinition of myocardial infarction. ??Journal of the [place] College of Cardiology 2000; 36: 959-969] Creatine [...] MD HEMATOLOGY ORDERABLE S Performing Organization Address [facility] Co de Phone Number [facility] * (ABNORMAL) Magnesium (01/06/2014 2:50 AM EDT) Magnesium 0.67(L) 0.69 - 1.07 mmol/L [facility] Blood specimen (specimen) 01/06/2014 2:50 AM EDT 01/06/2014 2:58 AM EDT Narrative Resulting Agency Comment Spec In Lab Kenia Bauman MD CHEMISTRY ORDERABLES Performing Organization Address [facility] de Phone Number [facility] * (ABNORMAL) Lipid panel (fasting) (01/06/2014 2:50 AM EDT) Cholesterol, Total 55 <=199 mg/dL [facility] Comment: Recommendations of the NCEP Adult Treatment Panel for the following risk cutoff thresholds for the [place] population: Desirable: <200 mg/dL Borderline High: 200-239 mg/dL High: > or = 240 mg/dL Triglyceride 148 <=149 mg/dL [facility] Comment: Reference Range: Normal triglycerides: ??<150 mg/dL Borderline high: ??150-199 mg/dL High: ??200-499 mg/dL Very high: ??>hn=230 mg/dL TATI 2001; 285(19):8426-2580 HDL Cholesterol 26(L) >=40 mg/dL [facility] Comment: Reference range: ??Low HDL: ?? < 40 mg/dL ??Normal: ?40-60 mg/dL ??Desirable: > 60 mg/dL TATI 2001; 285(19):0691-1651 LDL Cholesterol -1 <=99 mg/dL [facility] Comment: Reference range: ?? Optimal: ?<100 mg/dL ?? Near Optimal/Above Optimal: ?? 100-129 mg/dL ?? Borderline high: ?130-159 mg/dL ?? High: ? 160-189 mg/dL ?? Very high: ?>ex=602 mg/dL TATI 2001: 285(19):0453-0864 Cholesterol/HDL Ratio 2.1 ratio CERNER MILLENNIUM Comment: A Cholesterol to HDL ratio below 4:1 is desirable. ??Studies suggest that increased CAD risk occurs at ratios above 5 for females and above 6 for men. ? [place] Heart Association ??(http://www.americanheart.org) ? Yenny Int Med, 1994; 121:641 ? AM J Med, 1998; 105(1A):48S Blood specimen (specimen) 01/06/2014 2:50 AM EDT 01/06/2014 2:58 AM EDT Narrative Resulting Agency Comment Spec In Lab Kenia Bauman MD CHEMISTRY ORDERABLES [facility] * (ABNORMAL) Basic Metabolic Panel (non-fasting) (01/06/2014 2:50 AM EDT) [facility] Glucose 107 60 - 199 mg/dL CERNER MILLENNIUM Comment:Diabetes: >=200 mg/d L plus symptoms Blood Urea Nitrogen 31(H) 10 - 20 mg/dL CERNER MILLENNIUM Creatinine 1.41 0.80 - 1.50 mg/dL CERNER MILLENNIUM Comment: Please note that the pediatric reference intervals supplied above were not validated at [facility]. Results from pediatric [...] the following links into your internet browser. [email or web address] Blood specimen (specimen) 01/06/2014 2:50 AM EDT [...] (Bezet) 445 ms MUSE SYSTEM Calculated P [place] 18 degrees MUSE SYSTEM Calculated R [place] -55 degrees MUSE SYSTEM Calculated T [place] -70 degrees MUSE SYSTEM INTERPRETATION Sinus rhythm [...] in sodium chloride 0.9% 90 mL infusion (UNLEAVENED DOUGH MIXER) CONTINUOUS PRN, Starting on Thu01/06/14 at 1539, Until Thu01/11/14 at 1539, Cath (Intra-Procedure), Routine New Bag 01/06/2014 3:39 PM EDT 140 mcg/kg/min 776.2 mL/hr bivalirudin (ANGIOMAX) 250 mg in sodium chloride 0.9% 50 mL infusion (UNLEAVENED DOUGH MIXER) CONTINUOUS PRN, Starting on Thu01/06/14 at 1523, [...] RN)2011 (Given - Provider: Yamile Raya RN) 213 (Given - Provider: Yamile Raya RN) fentaNYL 50mcg/mL injection () 25-50 mcg, Intravenous, EVERY 5 MIN PRN, Starting on Thu01/10/14 at 1444, Until Thu01/11/14 at 0043, Pain, As needed to induce or maintain moderate sedation per [facility] Moderate Sedation Protocol, [...] to induce or maintain moderate sedation per [facility] Moderate Sedation Protocol, Not to exceed 1 mg per dose, 5mg/hour, or 0.2mg/kg per case., EP (Intra-Procedure), Routine 1511 (Given - Provider: Yaron Don RN)1518 (Given - Provider: Yaron Don RN)1524 (Given - Provider: Yaron Don RN)1551 (Given - Provider: Yaron Dno RN)1602 (Given - Provider: Yaron Don RN)1616 [...] Ervin Fontaine RN)1332 (Given - Provider: Ervin Fontaine, NAHUN) zolpidem (AMBIEN) tablet 10 mg (CANCELED) 10 mg, Oral, NIGHTLY PRN, Starting on Thu01/06/14 at 0258, Until Thu01/11/14 at 1539, Sleep, Routine 0012 (Given - Provider: Teresita Lozano RN)2348 (Given - Provider: Yamile Raya RN) 0002 (Given - Provider: Yamile Raya RN) documented in this encounter 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
--- OUTSIDE RECORDS SUMMARY | 2024-05-24 14:34 | XMS_ITS | Encounter Summary ---
Author Organization [facility] [place] [address] Care Team Providers Care Hide Mill Man Name Role Phone Iggy Sevilla MD Primary Care Provider [phone] Encounter Details Date Type Department Care Team (Late st Contact Info) Description 12/17/2011 10:30 AM EDT - 12/17/2011 11:30 AM EDT [place] [address] Kyra Vyas MD EGD WITH BIOPSY (WRVU [...] occurs, please contact your MD/ Please call [phone] before 5pm with problems, questions or concerns. After 5pm call [phone] and ask to speak with the kosher butcher application analyst. Discharge instructions reviewed with patient who expresses understanding. * Patient Instructions* Kyra Vyas MD - 12/17/2011 10:04 AM EDT Please see Recommendations in the Provation procedure report which is documented in the procedural note in E-DH. * Attachments The following attachments cannot be sent through Care Everywhere. * UPPER GI ENDOSCOPY: WHAT TO EXPECT AT HOME (INDONESIAN) documented in this encounter Medications at Time [...] Hospital Encounter [place] [address] Arrived 08/09/2024 10:00 AM EDT Hospital Encounter Non[place] [address] Arrived documented as of this encounter Procedures [...] PM EDT) Surgical Pathology Report ? [facility] ? Provider: ?? KYRA VYAS ? Pt. Name: ?? SHAHNAZ HENDRIX ? Acc #: ?[id number] ?Pt. ? Col Date: ?? 12/17/2011 ? [...] C - Labeled/Fixative: Esophagus, formalin. ? [facility] ? Provider: ?? KYRA VYAS ? Pt. Name: ?? SHAHNAZ HENDRIX ? Acc #: ?[id number] ?Pt. ? Col Date: ?? 12/17/2011 ? [...] Z-line at 39 cm, ? [facility] 12/17/2011 12:1 9 PM EDT yKra Vyas MD PATHOLOGY/CYTOLOGY O RDERALOREE Performing Organization Address [facility] Co de Phone Number MONICA PERALTA * Specimen to Pathology (surgical or derm) (12/17/2011 10:07 AM EDT) AP Specimen 12/17/2011 10:0 7 AM EDT 12/17/2011 10:07 AM EDT Narrative STACYDELMAR BENITEZON LICENSE OF [facility] - 12/17/2011 10:07 AM EDT Specimen requisition ordered. ??Separate Pathology report to follow Kyra Vyas MD PATHOLOGY/CYTOLOGY O RDMARY Performing Organization Address [facility] Co de Phone Number STACYDELMAR BENITEZON LICENSE OF [facility] * Specimen to Pathology (surgical or derm) (12/17/2011 10:07 AM EDT) AP Specimen 12/17/2011 10:0 7 AM EDT 12/17/2011 10:07 AM EDT Narrative [facility] - 12/17/2011 10:07 AM EDT Specimen requisition ordered. ??Separate Pathology report to follow Kyra Vyas MD PATHOLOGY/CYTOLOGY O RDERALOREE Performing Organization Address [facility] Co de Phone Number MONICA PERALTA * Specimen to Pathology (surgical or derm) (12/17/2011 10:07 AM EDT) AP Specimen 12/17/2011 10:0 7 AM EDT 12/17/2011 10:07 AM EDT Narrative [facility] - 12/17/2011 10:07 AM EDT Specimen requisition ordered. ??Separate Pathology report to follow Kyra Vyas MD PATHOLOGY/CYTOLOGY O RDMARY Performing Organization Address [facility] Co de Phone Number [facility] * POCT GLUCOSE LAB USE ONLY (12/17/2011 9:36 AM EDT) Glucose, POC 181 60 - 199 mg/dL [facility] Comment: Supplemental ranges: <110 mg/dL before meals <200 mg/dL all other times of the day Blood specimen (specimen) 12/17/2011 9:36 AM EDT 12/17/2011 9:36 AM EDT Kyra Vyas MD POINT OF CARE TEST O [facility] * UPPER GI ENDOSCOPY (12/17/2011 9:24 AM EDT) Pathologist [facility] UPPER GI ENDOSCOPY [facility] Endoscopy Patient Name: Shahnaz Hendrix ? Procedure Date: 12/17/2011 9:24 AM ? N: [id number] ? Date of : 1950 ? Age: 61 ? Order #: [id number] ? Procedure: ? Upper GI endoscopy Indications: ? Dyspepsia, Heartburn Providers: ? Kyra Vyas MD, Pavel Carreno, RN, ? Loraine Stewart, Community Educator Referring MD: ?Dr. Mcdermott Requesting Provider: Baldemar [...] EDT Iggy Sevilla MD GENERAL SURGICAL ORD [facility] documented in this encounter Visit Diagnoses [...] RN) documented in this encounter Care Teams Hide Mill Man Relationship Specialty Start Date End Date Iggy Sevilla MD [address] [place] [address] [place] [address] PCP - General 10/22/10 01/06/12 documented as of this encounter
--- OUTSIDE RECORDS SUMMARY | 2024-05-24 14:34 | XMS_ITS | Encounter Summary ---
Author Organization [facility] [place] [address] Care Team Providers Care Rn Imaging Name Role Phone Dewayne Mcdermott MD Primary Care Provider Court uribe Encounter Details Date Type Department Care Team (Late st Contact Info) Description 01/05/2014 Orders Only Cardiology at [address] [phone] Huseyin Espinoza MD [facility] [place] [address] Social History Tobacco Use Types Packs/Day Years [...] AM EST Hospital Encounter Non-Invasive [place] [phone] Arrived 08/09/2024 10:00 AM EDT Hospital Encounter Non-Invasive [place] [address] Arrived documented as of this encounter Procedures [...] is a Non-reportable exam Huseyin Espinoza MD G FILM LIBRARY ORD ERABLES documented in this encounter Visit Diagnoses Not on filedocumented in this encounter Care Teams Rn Imaging Relationship Specialty Start Date End Date Dewayne Mcdermott MD PCP - General 01/07/12 01/30/14 documented as of this encounter
--- OUTSIDE RECORDS SUMMARY | 2024-05-24 14:34 | XMS_ITS | Encounter Summary ---
Author Organization [facility] [place] [address] Care Team Providers Care Calender Roll Operator Name Role Phone Dewayne Mcdermott MD Primary Care Provider Unavaila ble Reason for Visit * Reason Comments Skin Check Encounter Details Date Type Department Care Team (Late st Contact Info) Description 05/27/2013 11:15 AM EST Office Visit Dermatology at [address] [phone] Adis Gonzalez MD [address] [place] [address], [place] [address] Irritant contact dermatitis (Primary Dx) Social History [...] a 63-year-old gentleman who is originally from [place] but spent many years in [place] and [place] before coming up to this [...] he could choose to do in the [place]: Walking in the beautiful winter landscape, skiing, cross-country skiing, or snowshoeing, which would involve a minimal financial investment to get started, or going to the [employer] to do some swimming. We discussed getting [...] AM EST Hospital Encounter Non-[place] [address] Arrived 08/09/2024 10:00 AM EDT Hospital Encounter Non-[place] [address] Arrived documented as of this encounter Visit Diagnoses Diagnosis Irritant contact dermatitis- Primary Contact dermatitis and other eczema, due to unspecified cause documented in this encounter Care Teams Calender Roll Operator Relationship Specialty Start Date End Date Dewayne Mcdermott MD PCP - General 01/07/12 01/30/14 documented as of this encounter
--- OUTSIDE RECORDS SUMMARY | 2024-05-24 14:34 | XMS_ITS | Encounter Summary ---
Author Organization [facility] [address] Care Team Providers Care Gusset Maker Name Role Phone Iggy Sevilla MD Primary Care Provider [phone] Reason for Visit * Reason Comments GI Problem Encounter Details Date Type Department Care Team (Late st Contact Info) Description 11/17/2011 9:00 AM EDT Office [place] [address] Baldemar Crockett APRN [facility] [place] [address] IBS (irritable bowel syndrome) (Primary Dx) Discharge [...] AM EDT Section of Gastroenterology and Hepatology [address] [place], [place] [id number] .Marquez Hendrix : 1950 Patient is here [...] after emptying. Colonoscopy 2009, per pt, [facility], normal. No blood in stool. Mucus in stool, a different odor. Has not correlated sx with medications, foods, or activities. Does not awake with sx. Weight stable. No chronic nsaids. No food allergies. Imodium prn. Tried probiotics in yogurt, Activia, did not agree with you. He believes he had a CT while in [facility], it was negative for diverticulitis. Diet: [...] Hospital Encounter Non-[place] [address] Arrived 08/09/2024 10:00 AM EDT Hospital Encounter Non-[place] [address] Arrived documented as of this encounter Procedures Procedure Name Priority Date/Time Associated Diagnosis Comments TISSUE TRANSGLUTAMINASE, IGA Routine 11/17/2011 10:24 AM EDT IBS (irritable bowel syndrome) documented in this encounter Results * Tissue transglutaminase, IgA (11/17/2011 10:24 AM EDT) TTG IgA Ab <4.0 <=3.9 u/ml [facility] Comment: Result Interpretation: Negative: ?<4 U/mL Weak Positive: ??4-10 U/mL Positive: ?>10 U/mL Blood specimen (specimen) 11/17/2011 10:24 AM EDT 11/17/2011 2:20 PM EDT Narrative Resulting Agency Comment Spec In Lab Juwan Skinner MD IMMUNOLOGY ORDERABLE S [facility] documented in this encounter Visit Diagnoses Diagnosis IBS (irritable bowel syndrome)- Primary Irritable bowel syndrome documented in this encounter Care Teams Gusset Maker Relationship Specialty Start Date End Date Iggy Sevilla MD [address] [place] [address] [place] [address] PCP - General 10/22/10 01/06/12 documented as of this encounter
--- OUTSIDE RECORDS SUMMARY | 2024-05-24 14:34 | XMS_ITS | Encounter Summary ---
Author Organization [facility] [place] [address] Care Team Providers Care Manager Of Case Management Name Role Phone Iggy Sevilla MD Primary Care Provider [phone] Encounter Details Date Type Department Care Team (Late st Contact Info) Description 11/17/2011 [place]phone [place] [phone] Peyton Cantu RN Social History Tobacco Use [...] for omeprazole written this AM brought to insulation supervisor. Call to pt to confirm pharmacy name and location. Call to pharmacy to call in prescription. documented in this encounter Plan of Treatment Upcoming Encounters Date Type Department Care Team (Late st Contact Info) Description 06/15/2024 10:00 AM EST Hospital Encounter Non[place] [phone] Arrived 08/09/2024 10:00 AM EDT Hospital Encounter Non[place] [phone] Arrived documented as of this encounter Visit Diagnoses Not on filedocumented in this encounter Care Teams Manager Of Case Management Relationship Specialty Start Date End Date Iggy Sevilla MD [address] [place] [address] [place] [address] PCP - General 10/22/10 01/06/12 documented as of this encounter
--- OUTSIDE RECORDS SUMMARY | 2024-05-24 14:34 | XMS_ITS | Encounter Summary ---
Author Organization [facility] [place] [address] Care Team Providers Care Career Development Consultant Name Role Phone Dewayne Mcdermott MD Primary Care Provider Unavaila ble Reason for Visit * Reason Onset Date Comments Other 02/26/2012 no heartburn Encounter Details Date Type Department Care Team (Late st Contact Info) Description 02/26/2012 Telephone [place] [address] Baldemar Crockett APRN [facility] DR GASTROENTEROLOGY DEPT. [place], [place] [phone] Other (no heartburn) Social History Tobacco Use [...] Hospital Encounter Non[place] [address] Arrived 08/09/2024 10:00 AM EDT Hospital Encounter Non[place] [address] Arrived documented as of this encounter Visit Diagnoses Not on filedocumented in this encounter Care Teams Career Development Consultant Relationship Specialty Start Date End Date Dewayne Mcdermott MD PCP - General 01/07/12 01/30/14 documented as of this encounter
--- OUTSIDE RECORDS SUMMARY | 2024-05-24 14:34 | XMS_ITS | Encounter Summary ---
Author Organization [facility] Address [facility] [place] [address] Care Team Providers Care Service Promoter Salesperson Name Role Phone Dewayne Mcdermott MD Primary Care Provider Unavaila ble Reason for Visit * Reason Comments Coronary Artery Disease Encounter Details Date Type Department Care Team (Late st Contact Info) Description 02/08/2013 8:00 AM EDT Office Visit [address] [address] Mynor Will MD [facility] [place] [address] CAD (coronary artery disease) (Primary Dx) Social [...] Hospital Encounter [place] [address] Arrived 08/09/2024 10:00 AM EDT Hospital Encounter [place] [address] Arrived documented as of this encounter Visit Diagnoses Diagnosis CAD (coronary artery disease)- Primary Coronary atherosclerosis of unspecified type of vessel, [place] or graft documented in this encounter Care Teams Service Promoter Salesperson Relationship Specialty Start Date End Date Dewayne Mcdermott MD PCP - General 01/07/12 01/30/14 documented as of this encounter
--- OUTSIDE RECORDS SUMMARY | 2024-05-24 14:34 | XMS_ITS | Encounter Summary ---
Author Organization [facility] Address [facility] [place] [address] Care Team Providers Care Electrical Tester Name Role Phone Jennifer Haro MD Primary Care Provider Unavaila ble Reason for Visit * Reason Comments Follow-up S/P cath Encounter Details Date Type Department Care Team (Late st Contact Info) Description 06/14/2013 9:40 AM EST Follow-Up Cardiology at [address] [phone] Kit Self MD [facility] [place] [address] ASCVD (arteriosclerotic cardiovascular disease); Tobacco abuse Discharge [...] original note were not included. [facility] [place] [address] CARDIOLOGY OUTPATIENT FOLLOW-UP NOTE Marquez Hendrix [id number] PCP: JENNIFER HARO MD 06/14/2013 PRIMARY CARE PROVIDER: JENNIFER HARO MD PROBLEM LIST: Patient Active Problem List Diagnosis ??? ASCVD (arteriosclerotic cardiovascular disease) ?? Heart catheterization in [facility] in 2007 with placement of a stent in an unspecified vessel ?? Repeat heart catheterization in 2008 with placement of stents to both the LAD and circumflex ?? Followup heart catheterization in 2008 showing stable results in both vessels ?? Her current chest discomfort in a somewhat atypical pattern beginning fall ?? Nuclear stress test at [facility] in [place], [place] May 02, 2013 during which he [...] mg by mouth 2 times daily. ??? [place]-3 Fatty Acids (FISH OIL) 500 mg Cap Take by mouth daily. ??? multivitamin capsule Take 1 capsule by mouth daily. ??? LANCETS MISC by Misc.(Non-Drug; Combo Route) route. ??? lamotrigine (LAMICTAL) 100 mg tablet Take 100 mg by mouth daily. ??? alprazolam (XANAX XR) 3 mg 24 hr tablet Take 3 mg by mouth every morning. ? ? lactobac cmb #[id number] (PROBIOTIC & ACIDOPHILUS) 300-250 million cell- mg [...] AM EST Hospital Encounter Non[place] [address] Arrived 08/09/2024 10:00 AM EDT Hospital Encounter Non[place] [address] Arrived documented as of this encounter Visit Diagnoses Diagnosis ASCVD (arteriosclerotic cardiovascular disease) Unspecified cardiovascular disease Tobacco abuse Tobacco use disorder documented in this encounter Care Teams Electrical Tester Relationship Specialty Start Date End Date Jennifer Haro MD PCP - General 01/07/12 01/30/14 documented as of this encounter
--- OUTSIDE RECORDS SUMMARY | 2024-05-24 14:34 | XMS_ITS | Encounter Summary ---
Author Organization [facility] [place] [address] Care Team Providers Care Paper Spooler Name Role Phone Unknown Primary Care Provider Unavailabl e Reason for Visit * Reason Comments Coronary Artery Disease Encounter Details Date Type Department Care Team (Late st Contact Info) Description 09/24/2010 2:30 PM EDT Office Visit [address] [address] Mynor Will MD [facility] [place] [address] CAD (coronary artery disease) (Primary Dx) Social [...] Will - 09/24/2010 2:32 PM EDT Scanned [facility] att documented in this encounter Plan of Treatment Upcoming Encounters Date Type Department Care Team (Late st Contact Info) Description 06/15/2024 10:00 AM EST Hospital Encounter Non-Invasive [place] [address] Arrived 08/09/2024 10:00 AM EDT Hospital Encounter Non-Invasive [place] [address] Arrived documented as of this encounter Visit Diagnoses Diagnosis CAD (coronary artery disease)- Primary Coronary atherosclerosis of unspecified type of vessel, [place] or graft documented in this encounter Care Teams Paper Spooler Relationship Specialty Start Date End Date Unknown None PCP - General 09/24/10 10/21/10 documented as of this encounter
--- OUTSIDE RECORDS SUMMARY | 2024-05-24 14:34 | XMS_ITS | Encounter Summary ---
Author Organization [facility] Address [facility] [place] [address] Care Team Providers Care Diesel Locomotive Firer/Fireman Name Role Phone Iggy Sevilla MD Primary Care Provider [phone] Reason for Visit * Reason Comments Coronary Artery Disease Encounter Details Date Type Department Care Team (Late st Contact Info) Description 01/06/2012 1:15 PM EDT Office Visit [address] [phone] Mynor Will MD [facility] [place] [address] CAD (coronary artery disease) (Primary Dx) Social [...] AM EST Hospital Encounter [place] [address] Arrived 08/09/2024 10:00 AM EDT Hospital Encounter Non[place] [address] Arrived documented as of this encounter Visit Diagnoses Diagnosis CAD (coronary artery disease)- Primary Coronary atherosclerosis of unspecified type of vessel, [place] or graft documented in this encounter Care Teams Diesel Locomotive Firer/Fireman Relationship Specialty Start Date End Date Iggy Sevilla MD [address] [place] [address] [place] [address] PCP - General 10/22/10 01/06/12 documented as of this encounter
--- OUTSIDE RECORDS SUMMARY | 2024-05-24 14:34 | XMS_ITS | Encounter Summary ---
Author Organization [facility] Address [facility] [place] [address] Care Team Providers Care Master Printer Name Role Phone Dewayne Mcdermott MD Primary Care Provider Unavaila ble Reason for Visit * Reason Onset Date Comments Other 02/25/2012 assess plan Encounter Details Date Type Department Care Team (Late st Contact Info) Description 02/25/2012 Telephone [place] [phone] Baldemar Crockett APRN [facility] [place] [address] Other (assess plan) Social History Tobacco Use [...] AM EST Hospital Encounter [place] [address] Arrived 08/09/2024 10:00 AM EDT Hospital Encounter [place] [address] Arrived documented as of this encounter Visit Diagnoses Not on filedocumented in this encounter Care Teams Master Printer Relationship Specialty Start Date End Date Dewayne Mcdermott MD PCP - General 01/07/12 01/30/14 documented as of this encounter
--- OUTSIDE RECORDS SUMMARY | 2024-05-24 14:34 | XMS_ITS | Encounter Summary ---
Author Organization [facility] [place] [address] Care Team Providers Care Waste Transportation Technician Name Role Phone Dewayne Mcdermott MD Primary Care Provider Unavaila ble Reason for Visit * Reason Onset Date Comments Hematuria 05/16/2013 Encounter Details Date Type Department Care Team (Late st Contact Info) Description 05/16/2013 Telephone Cardiology at [address] [phone] Rosanna Morrow RN Hematuria Social History Tobacco [...] clear with time. Patient is[facility] .Forwarded daughter to speak with medical records. documented in this encounter Plan of Treatment Upcoming Encounters Date Type Department Care Team (Late st Contact Info) Description 06/15/2024 10:00 AM EST Hospital Encounter Non-Invasive [place] [address] Arrived 08/09/2024 10:00 AM EDT Hospital Encounter Non-Invasive [place] [address] Arrived documented as of this encounter Visit Diagnoses Not on filedocumented in this encounter Care Teams Waste Transportation Technician Relationship Specialty Start Date End Date Dewayne Mcdermott MD PCP - General 01/07/12 01/30/14 documented as of this encounter
--- OUTSIDE RECORDS SUMMARY | 2024-05-24 14:34 | XMS_ITS | Encounter Summary ---
Author Organization [facility] Address [facility] [place] [address] Care Team Providers Care Data Entry Manager Name Role Phone Iggy Sevilla MD Primary Care Provider [phone] Encounter Details Date Type Department Care Team (Latest Contact Info) Description 12/17/2011 9:04 AM EDT - 12/17/2011 3:22 PM EDT Hospital Encounter [place] [address] Kyra Vyas MD Discharge Disposition: Home Social [...] occurs, please contact your MD/ Please call [phone] before 5pm with problems, questions or concerns. After 5pm call [phone] and ask to speak with the setter helper worksite wellness practitioner. Discharge instructions reviewed with patient who expresses understanding. * Patient Instructions* Kyra Vyas MD - 12/17/2011 10:04 AM EDT Please see Recommendations in the Provation procedure report which is documented in the procedural note in [facility]. * Attachments The following attachments cannot be sent through Care Everywhere. * UPPER GI ENDOSCOPY: WHAT TO EXPECT AT HOME (SWAZI) documented in this encounter Medications at Time [...] EST Hospital Encounter Non-[place]vasive [place] [address] Arrived 08/09/2024 10:00 AM EDT Hospital Encounter Non-Invasive [place] [address] Arrived documented as of this encounter Procedures [...] 12:19 PM EDT) Surgical Pathology Report ? [facility] ? Provider: ?? KYRA VYAS ? Pt. Name: ?? SHAHNAZ SANTIAGO ? Acc #: ?[id number] ?Pt. ? Col Date: ?? 12/17/2011 ? [...] ? C - Labeled/Fixative: Esophagus, formalin. ? [facility] ? Provider: ?? KYRA VYAS ? Pt. Name: ?? SHAHNAZ SANTIAGO ? Acc #: ?[id number] ?Pt. ? Col Date: ?? 12/17/2011 ? [...] Z-line at 39 cm, ? [facility] 12/17/2011 12:1 9 PM EDT Kyra Vyas MD PATHOLOGY/CYTOLOGY O RDMARY Performing Organization Address [facility] Co de Phone Number STACYDELMAR PERALTA * Specimen to Pathology (surgical or derm) (12/17/2011 10:07 AM EDT) AP Specimen 12/17/2011 10:0 7 AM EDT 12/17/2011 10:07 AM EDT Narrative MONICA MILTONSEPIDEHGENE - 12/17/2011 10:07 AM EDT Specimen requisition ordered. ??Separate Pathology report to follow Kyra Vyas MD PATHOLOGY/CYTOLOGY O RDMARY Performing Organization Address [facility] Co de Phone Number MONICA MILTONSEPIDEHGENE * Specimen to Pathology (surgical or derm) (12/17/2011 10:07 AM EDT) AP Specimen 12/17/2011 10:0 7 AM EDT 12/17/2011 10:07 AM EDT Narrative MONICA MILTONSEPIDEHGENE - 12/17/2011 10:07 AM EDT Specimen requisition ordered. ??Separate Pathology report to follow Kyra Vyas MD PATHOLOGY/CYTOLOGY O RDMARY Performing Organization Address [facility] Co de Phone Number MONICA KATHRYN * Specimen to Pathology (surgical or derm) (12/17/2011 10:07 AM EDT) AP Specimen 12/17/2011 10:0 7 AM EDT 12/17/2011 10:07 AM EDT Narrative MONICA MILTONZINA - 12/17/2011 10:07 AM EDT Specimen requisition ordered. ??Separate Pathology report to follow Kyra Vyas MD PATHOLOGY/CYTOLOGY O RDMARY Performing Organization Address [facility]/ZIP Co de Phone Number MONICA MILTONZINA * POCT GLUCOSE LAB USE ONLY (12/17/2011 9:36 AM EDT) Glucose, POC 181 60 - 199 mg/dL MONICA PERALTA Comment: Supplemental ranges: <110 mg/dL before meals <200 mg/dL all other times of the day Blood specimen (specimen) 12/17/2011 9:36 AM EDT 12/17/2011 9:36 AM EDT Kyra Vyas MD POINT OF CARE TEST [facility] * UPPER GI ENDOSCOPY (12/17/2011 9:24 AM EDT) Pathologist [facility] UPPER GI ENDOSCOPY [facility] Endoscopy Patient Name: Shahnaz Santiago ? Procedure Date: 12/17/2011 9:24 AM ? N: [id number] ? Date of : 1950 ? Age: 61 ? Order #: [id number] ? Procedure: ? Upper GI endoscopy Indications: ? Dyspepsia, Heartburn Providers: ? Kyra Vyas MD, Pavel Carreno, NAHUN, ? Loraine Stewart, Harpooner Referring MD: ?Dr. Mcdermott Requesting Provider: Baldemar [...] Pavel Carreno RN)[phone] (Given - Provider: Pavel Carerno RN) documented in this encounter Care Teams Data Entry Manager Relationship Specialty Start Date End Date Iggy Sevilla MD [address] [place] [address] [place] [address] PCP - General 10/22/10 01/06/12 documented as of this encounter
--- OUTSIDE RECORDS SUMMARY | 2024-05-24 14:34 | XMS_ITS | Encounter Summary ---
Author Organization [facility] [place] [id number] Care Team Providers Care Window Trimmer Name Role Phone Jennifer Haro MD Primary Care Provider Court uribe Encounter Details Date Type Department Care Team (Latest Contact Info) Description 05/13/2013 2:27 PM EST - 05/14/2013 2:18 PM EST Hospital Encounter Short Stay Unit at [place] [phone] [facility] [place] [address] [facility] [place] [address] CAD (coronary artery disease); ASCVD (arteriosclerotic cardiovascular disease); Atherosclerotic heart disease of ute coronary artery with unstable angina pectoris Discharge [...] appointments: During 8am-5pm Thursday through Thursday call [phone] to speak with a nurse in the cardiology clinic All other times call [phone] and ask to speak to the salvage engineering technician personal vehicle advisor. Return to work: One week Driving: No driving for 48 hours after catheterization. Follow up Appointments: PCP Call for appointment in 1-2 weeks. Effervescent Salts Compounder You should be seen in 3-4 weeks for follow up. Follow up with Dr Nicolette maguire jun 03. Home oxygen therapy: N/A Arrangements for VNA/home care: none * Attachments The following attachments cannot be sent through Care Everywhere. * CHEST PAIN (ANGINA): AFTER YOUR VISIT (MALAWIAN) * CARDIAC REHABILITATION: AFTER YOUR VISIT (MALAWIAN) * PERCUTANEOUS CORONARY INTERVENTION: WHAT TO EXPECT AT HOME (MALAWIAN) documented in this encounter Medications at Time [...] mg by mouth nightly as needed. 06/14/2013 [place]-3 Fatty Acids (FISH OIL) 500 mg Cap Take by mouth daily. 01/14/2016 lamotrigine (LAMICTAL) 100 mg tablet Take 200 mg by mouth daily. 09/01/2018 alprazolam (XANAX XR) 3 mg 24 hr tablet Take 3 mg by mouth nightly. 09/18/2020 [id number] (PROBIOTIC & ACIDOPHILUS) 300-250 million cell-mg Cap [...] VS documented in doc flow sheets from [id number]. * Shyanne Casillas RN - 05/13/2013 3:53 PM EST Pt arrived from cardiac cath recovery on stretcher at 1430. Alert and oriented,denies chest pain ordyspnea, right groin site clean and intact, + pedal pulse, gambling monitor shows normal sinus rhythm with frequent [...] - 05/13/2013 1:17 PM EST Marquez Hendrix [id number] 05/13/2013 62 y.o. Admission History and Physical [...] anxiety bc it reminds him of prior MT pain. At cath he was found to [...] and clopidogrel per protocol. Dagoberto Amaral MD [place] Pager# [phone] 05/13/2013 * Raji Novak - 05/13/2013 10:50 [...] anxiety bc it reminds him of prior MT pain. Filed Vitals: 05/13/13 1046 BP: 110/70 [...] 05/16/2013 11:07 PM ESTAssociated Order(s): SCAN DOC: DIE MAKER APPRENTICE documented in this encounter Miscellaneous Notes * [...] disease) Priority: High ?? Heart catheterization in [facility] in 2007 with placement of a stent in an unspecified vessel ?? Repeat heart catheterization in 2008 with placement of stents to both the LAD and circumflex ?? Followup heart catheterization in 2008 showing stable results in both vessels ?? Her current chest discomfort in a somewhat atypical pattern beginning fall ?? Nuclear stress test at [facility] in [place], [place] May 02, 2013 during which he developed left shoulder and arm discomfort during submaximal exercise on the treadmill and after which he was converted to a pharmacologic test; nuclear imaging showed ejection fraction of 45% with a partially reversible inferior defect ?? Cath [facility] 05/13/2013: 3.0 X 12 mm JON to [...] anxiety bc it reminds him of prior MT pain. At cath he was found to [...] 10 mg by mouth nightly as needed. [place]-3 Fatty Acids (FISH OIL) 500 mg Cap Take by mouth daily. multivitamin capsule 1 capsule Take 1 capsule by mouth daily. LANCETS MISC by Mis.(Non-Drug; Combo Route) route. lamotrigine (LAMICTAL) 100 mg tablet 100 mg Take 100 mg by mouth daily. alprazolam (XANAX XR) 3 mg 24 hr tablet 3 mg Take 3 mg by mouth every morning. lactobac cmb #[id number] (PROBIOTIC & ACIDOPHILUS) 300-250 million cell-mg Cap [...] appointments: During 8am-5pm Thursday through Thursday call [phone] to speak with a nurse in the cardiology clinic All other times call [phone] and ask to speak to the salvage engineering technician personal vehicle advisor. Return to work: One week Driving: No driving for 48 hours after catheterization. Follow up Appointments: PCP Call for appointment in 1-2 weeks. Effervescent Salts Compounder You should be seen in 3-4 weeks for follow up. Follow up with Dr Nicolette maguire jun 03. Home oxygen therapy: N/A Arrangements for VNA/home care: none General Instructions None Future Appointments and Orders Future Appointments: Provider: Department: Dept Phone: Center: 06/14/2013 9:40 AM Kit Self MD Cardiology [phone] [facility] Joint Appt Nurse One Cardiology IntakeNAHUN [phone] [facility] Future Orders Please Complete By [...] Information: Dr. Antoinette Amaral Section of Cardiology [facility] [phone] Discharge References/Attachments: Discharge References/Attachments None Signed: Baldemar Martínez DATE: 05/14/2013 documented in this encounter Plan of Treatment Upcoming Encounters Date Type Department Care Team (Late st Contact Info) Description 06/15/2024 10:00 AM EST Hospital Encounter [place] [address] Arrived 08/09/2024 10:00 AM EDT Hospital Encounter Non-Invasive Cardiology Lab [facility] [place] [address] Arrived documented as of this encounter Procedures Procedure Name Priority Date/Time Associated Diagnosis Comments DIE MAKER APPRENTICE SCAN 05/16/2013 11:07 PM EST POCT GLUCOSE Routine 05/14/2013 12:08 PM EST POCT GLUCOSE Routine 05/14/2013 7:57 AM EST EKG 12-LEAD Routine 05/14/2013 7:40 AM EST CAD (coronary artery disease) BMP W/FASTING GLUCOSE Routine 05/14/2013 3:30 AM EST DIFFERENTIAL, AUTOMATED Routine 05/14/2013 3:30 AM EST CARDIAC ENZYMES ([facility]/CGP) Routine 05/14/2013 3:30 AM EST CBC (WITH DIFF) Routine 05/14/2013 3:30 AM EST POCT GLUCOSE Routine 05/14/2013 3:10 AM EST POCT GLUCOSE Routine 05/13/2013 11:40 PM EST POCT GLUCOSE Routine 05/13/2013 10:14 PM EST POCT GLUCOSE Routine 05/13/2013 8:52 PM EST POCT GLUCOSE Routine 05/13/2013 3:55 PM EST EKG 12-LEAD Routine 05/13/2013 1:57 PM EST CAD (coronary artery disease) CARDIAC ENZYMES ([facility]/CGP) STAT 05/13/2013 1:00 PM EST POCT GLUCOSE Routine 05/13/2013 10:46 AM EST documented in this encounter Results * SCAN DOC: DIE MAKER APPRENTICE (05/16/2013 11:07 PM EST) Anatomical Region Laterality Modality Other Narrative 05/16/2013 11:09 PM EST Procedure Note Provider, Scanning - 05/16/2013 11:07 PM EST Scanning Provider MEDIA MGR SCAN EXT O RDR/RSLT * (ABNORMAL) POCT Glucose (05/14/2013 12:08 PM EST) Glucose, POC 222(H) 60 - 199 mg/dL [facility] Comment: Supplemental ranges: <110 mg/dL before meals <200 mg/dL all other times of the day Blood specimen (specimen) 05/14/2013 12:08 PM EST 05/14/2013 12:08 PM EST Kit Self MD POINT OF CARE TEST O RDERABLES Performing Organization Address [facility] [place]/[facility] Co de Phone Number [facility] * POCT Glucose (05/14/2013 7:57 AM EST) [facility] Glucose, POC 85 60 - 199 mg/dL [facility] Comment: Supplemental ranges: <110 mg/dL before meals <200 mg/dL all other times of the day Blood specimen (specimen) 05/14/2013 7:57 AM EST 05/14/2013 7:57 AM EST Kit Self MD POINT OF CARE TEST O RDERABLES Performing Organization Address [facility] [place]/[facility] Co de Phone Number [facility] * EKG 12 Lead (05/14/2013 7:40 AM EST) Ventricular rate 72 BPM MUSE SYSTEM Atrial Rate 72 BPM MUSE SYSTEM P-R Interval 208 ms MUSE SYSTEM QRS Duration 122 ms MUSE SYSTEM Q-T Interval 416 ms MUSE SYSTEM QTC Calculated (Bezet) 455 ms MUSE SYSTEM Calculated P [place] 67 degrees MUSE SYSTEM Calculated R [place] -59 degrees MUSE SYSTEM Calculated T [place] -12 degrees MUSE SYSTEM INTERPRETATION Sinus rhythm [...] Glucose Fasting 83 65 - 99 mg/dL CERDELMAR MILLENNIUM Comment: [...] of Diabetes Mellitus, Position Statement from the [place] Diabetes Association. ??Diabetes Care, Volume 33, Supplement 1, Apr 2009 Blood Urea Nitrogen 21(H) 10 - 20 mg/dL CERNER MILLENNIUM Creatinine 0.99 0.80 - 1.50 mg/dL CERNER MILLENNIUM Comment: Please note that the pediatric reference intervals supplied above were not validated at [facility]. Results from pediatric patients should be interpreted [...] 3:30 AM EST) Troponin-T 0.05(H) <=0.03 ng/mL CERNER MILLENNIUM Comment: [...] consensus document of the Joint Society of Cardiology/[place] College of Cardiology Committee for the redefinition of myocardial infarction. ??Journal of the [place] College of Cardiology 2000; 36: 959-969] Creatine Kinase 62 0 - 200 unit/L CERNER [employer] StopENNIUM Blood specimen (specimen) 05/14/2013 3:30 AM EST 05/14/2013 3:32 AM EST Narrative Resulting Agency Comment Spec In Lab Jennifer Curry MD CHEMISTRY ORDERABLES Performing Organization Address [facility] [place]/[facility] Co de Phone Number [facility] * (ABNORMAL) CBC (with Diff) (05/14/2013 3:30 [...] MD HEMATOLOGY ORDERABLE S Performing Organization Address [facility] [place]/[facility]/ZIP Co de Phone Number [facility] * POCT Glucose (05/14/2013 3:10 AM EST) Glucose, POC 87 60 - 199 mg/dL [facility] MILLENNIUM Comment: Supplemental ranges: <110 mg/dL before meals <200 mg/dL all other times of the day Blood specimen (specimen) 05/14/2013 3:10 AM EST 05/14/2013 3:10 AM EST Kit Self MD POINT OF CARE TEST O RDERABLES Performing Organization Address [facility] Phone Number [facility] * POCT Glucose (05/13/2013 11:40 PM EST) Glucose, POC 141 60 - 199 mg/dL [facility] Comment: Supplemental ranges: <110 mg/dL before meals <200 mg/dL all other times of the day Blood specimen (specimen) 05/13/2013 11:40 PM EST 05/13/2013 11:40 PM EST Kit Self MD POINT OF CARE TEST O RDERABLES Performing Organization Address [facility] Phone Number [facility] * (ABNORMAL) POCT Glucose (05/13/2013 10:14 PM EST) Glucose, POC 224(H) 60 - 199 mg/dL [facility] Comment: Supplemental ranges: <110 mg/dL before meals <200 mg/dL all other times of the day Blood specimen (specimen) 05/13/2013 10:14 PM EST 05/13/2013 10:14 PM EST Kit Self MD POINT OF CARE TEST O RDERABLES Performing Organization Address [facility] Phone Number [facility] * (ABNORMAL) POCT Glucose (05/13/2013 8:52 PM EST) Glucose, POC 318(H) 60 - 199 mg/dL [facility] Comment: Supplemental ranges: <110 mg/dL before meals <200 mg/dL all other times of the day Blood specimen (specimen) 05/13/2013 8:52 PM EST 05/13/2013 8:52 PM EST Kit Self MD POINT OF CARE TEST O RDERABLES Performing Organization Address [facility] [place]/[facility]/ZIP Co de Phone Number [facility] * POCT Glucose (05/13/2013 3:55 PM EST) Pathologist [facility] Glucose, POC 90 60 - 199 mg/dL [facility] Comment: Supplemental ranges: <110 mg/dL before meals <200 mg/dL all other times of the day Blood specimen (specimen) 05/13/2013 3:55 PM EST 05/13/2013 3:55 PM EST Kit Self MD POINT OF CARE TEST O RDERABLES Performing Organization Address [facility] [place]/[facility] de Phone Number [facility] * EKG 12 Lead (05/13/2013 1:57 PM EST) [facility] Ventricular rate 59 BPM MUSE SYSTEM Atrial Rate 59 BPM MUSE SYSTEM P-R Interval 224 ms MUSE SYSTEM QRS Duration 132 ms MUSE SYSTEM Q-T Interval 438 ms MUSE SYSTEM QTC Calculated (Bezet) 433 ms MUSE SYSTEM Calculated P [place] 37 degrees MUSE SYSTEM Calculated R [place] -61 degrees MUSE SYSTEM Calculated T [place] -29 degrees MUSE SYSTEM INTERPRETATION Sinus bradycardia with 1st degree A-V block Left axis deviation Non-specific intra-ventricula r conduction block T wave abnormality, consider anterolateral ischemia Abnormal ECG Confirmed by MD William, Navid ([id number]) on 05/14/2013 3:52:55 PM MUSE SYSTEM 05/13/2013 1:57 PM EST 05/14/2013 3:52 PM EST Jennifer Curry MD ECG ORDERABLES Performing Organization Address [facility] Phone Number MUSE SYSTEM * Cardiac Enzymes (05/13/2013 1:00 PM EST) [facility] Troponin-T <0.03 <=0.03 ng/mL [facility] Comment: 0.03 ng/mL: Represents the 99th [...] consensus document of the Joint Society of Cardiology/[place] College of Cardiology Committee for the redefinition of myocardial infarction. ??Journal of the [place] College of Cardiology 2000; 36: 959-969] Creatine Kinase 52 0 - 200 unit/L MONICA PERALTA Blood specimen (specimen) 05/13/2013 1:00 PM EST 05/13/2013 1:19 PM EST Narrative Resulting Agency Comment Spec In Lab Kit Self MD CHEMISTRY ORDERABLES [facility]ICA PERALTA * POCT Glucose (05/13/2013 10:46 AM EST) Glucose, POC 113 60 - 199 mg/dL MONICA PERALTA Comment: Supplemental ranges: <110 mg/dL before meals <200 mg/dL all other times of the day Blood specimen (specimen) 05/13/2013 10:46 AM EST 05/13/2013 10:46 AM EST Kit Self MD POINT OF CARE TEST O RDERABLES Performing Organization Address City/[facility]/ZIP Co de Phone Number MONICA PERALTA documented in this encounter Visit Diagnoses Diagnosis ASCVD (arteriosclerotic cardiovascular disease)- Primary Unspecified cardiovascular disease CAD (coronary artery disease) Coronary atherosclerosis of unspecified type of vessel, ute or graft ASCVD (arteriosclerotic cardiovascular disease) Unspecified cardiovascular disease Atherosclerotic heart disease of ute coronary artery with unstable angina pectoris Coronary atherosclerosis of ute coronary artery documented in this encounter Administered [...] See comment - Comment: 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) 0900 (Given - Provider: Shyanne Casillas RN) [...] See comment - Comment: 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) 0900 (Given - Provider: Shyanne Casillas RN) lisinopril (PRINIVIL;ZESTRIL) tablet 10 mg (CANCELED) 10 mg, Oral, DAILY, First dose on Thu05/13/13 at 1600, Until Discontinued, Routine 1600 (Not Given - Provider: Ely Villalpando RN - Reason: See comment - Comment: 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) 0900 (Given - Provider: Shyanne Casillas RN) nadolol (CORGARD) tablet 20 mg (CANCELED) 20 mg, Oral, DAILY, First dose on 1/24/14 at 1500, Until Discontinued, Routine 1500 (Not Given - Provider: Ely Villalpando RN - Reason: See comment - Comment: took [employer]BER) 0900 (Given - Provider: Shyanne Casillas RN) [...] (PLAVIX) tablet (CANCELED) ONCE PRN, Starting on 1/24/14 at 1305, Until Thu05/13/13 at 1311, Cath [...] NAHUN) documented in this encounter Care Teams Window Trimmer Relationship Specialty Start Date End Date Jennifer Haro MD PCP - General 01/07/12 01/30/14 documented as of this encounter
--- OUTSIDE RECORDS SUMMARY | 2024-05-24 14:34 | XMS_ITS | Encounter Summary ---
Author Organization [facility] Address [facility] [place] [address] Care Team Providers Care Stock Layer Name Role Phone Dewayne Mcdermott MD Primary Care Provider Unavaila ble Reason for Visit * Reason Comments Coronary Artery Disease Encounter Details Date Type Department Care Team (Latest Contact Info) Description 05/10/2013 9:10 AM EST Office Visit Cardiology at [address] [phone] Kit Self MD [facility] [place] [address] CAD (coronary artery disease) (Primary Dx); ASCVD (arteriosclerotic cardiovascular disease); Atherosclerotic heart disease of kake coronary artery with unstable angina pectoris; T2DM [...] not included. [facility] JAYA Cao [phone] CARDIOLOGY OUTPATIENT CONSULTATION [facility] Marquez Hnedrix [id number] 05/10/2013 REFERRING PROVIDER: Dewayne Mcdermott CHIEF COMPLAINT: Chief Complaint Patient presents with ??? Coronary Artery Disease PROBLEM LIST Patient Active Problem List Diagnosis ??? T2DM (type 2 diabetes mellitus) ??? Esophageal reflux ??? IBS (irritable bowel syndrome) ??? ASCVD (arteriosclerotic cardiovascular disease) ?? Heart catheterization in [facility] in 2007 with placement of a stent in an unspecified vessel ?? Repeat heart catheterization in 2008 with placement of stents to both the LAD and circumflex ?? Followup heart catheterization in 2008 showing stable results in both vessels ?? Her current chest discomfort in a somewhat atypical pattern beginning fall ?? Nuclear stress test at [facility] in [place], [place] May 02, 2013 during which he [...] mg by mouth nightly as needed. ??? [place]-3 Fatty Acids (FISH OIL) 500 mg Cap Take by mouth daily. ??? multivitamin capsule Take 1 capsule by mouth daily. ??? LANCETS MISC by Misc.(Non-Drug; Combo Route) route. ??? lamotrigine (LAMICTAL) 100 mg tablet Take 100 mg by mouth daily. ??? alprazolam (XANAX XR) 3 mg 24 hr tablet Take 3 mg by mouth every morning. ? ? lactobac cmb #[id number] (PROBIOTIC & ACIDOPHILUS) 300-250 million cell- mg [...] He developed anginal symptoms while living in [place], [place] in 2007. He apparently proceeded to [...] problems. 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 He spent some time in the [employer]. He currently lives in [facility] and is . He is [...] via any of the following mechanisms: Email: [email or web address] documented in this encounter Procedure Notes * Provider, Scanning - 05/13/2013 1:29 PM ESTAssociated Order(s): CARDIAC CATHETERIZATION documented in this encounter Plan of Treatment Upcoming Encounters Date Type Department Care Team (Late st Contact Info) Description 06/15/2024 10:00 AM EST Hospital Encounter Non-Invasive [place] [address] Arrived 08/09/2024 10:00 AM EDT Hospital Encounter Non-Invasive [place] [address] Arrived documented as of this encounter Procedures Procedure Name Priority Date/Time Associated Diagnosis Comments CARDIAC CATHETERIZATION Routine 05/13/2013 1:12 PM EST CAD (coronary artery disease) ASCVD (arteriosclerotic cardiovascular disease) Atherosclerotic heart disease of kake coronary artery with unstable angina pectoris DIFFERENTIAL, AUTOMATED Routine 05/10/2013 10:41 AM EST PROTHROMBIN TIME Routine 05/10/2013 10:4 1 AM EST CAD (coronary artery disease) ASCVD (arteriosclerotic cardiovascular disease) Atherosclerotic heart disease of kake coronary artery with unstable angina pectoris CBC (WITH DIFF) Routine 05/10/2013 10:41 AM EST CAD (coronary artery disease) ASCVD (arteriosclerotic cardiovascular disease) Atherosclerotic heart disease of kake coronary artery with unstable angina pectoris BASIC METABOLIC PANEL Routine 05/10/2013 10:41 AM EST CAD (coronary artery disease) ASCVD (arteriosclerotic cardiovascular disease) Atherosclerotic heart disease of kake coronary artery with unstable angina pectoris EKG [...] 12.0 - 15.0 sec CERNER MILLENNIUM Comment: [facility] Transfusion Committee Guidelines: INR less than 2.0, [...] Lab Kit Self MD HEMATOLOGY ORDERABLE S CERNER MILLENNIUM * Basic Metabolic Panel (non-fasting) (05/10/2013 10:41 AM EST) Glucose 122 60 - 199 mg/dL CERNER MILLENNIUM Comment:Diabetes: >=200 mg/d L plus symptoms Blood Urea Nitrogen 20 10 - 20 mg/dL CERNER MILLENNIUM Creatinine 1.16 0.80 - 1.50 mg/dL CERNER MILLENNIUM Comment: Please note that the pediatric reference intervals supplied above were not validated at [facility]. Results from pediatric patients should be interpreted [...] Self MD CHEMISTRY ORDERABLES Performing Organization Address [facility]/ZIP Co de Phone Number MONICA PERALTA * [...] Lab Kit Self MD HEMATOLOGY ORDERABLE S MONICA PERALTA * EKG 12 Lead (05/10/2013 9:20 AM EST) Ventricular rate 73 BPM MUSE SYSTEM Atrial Rate 73 BPM MUSE SYSTEM P-R Interval 202 ms MUSE SYSTEM QRS Duration 134 ms MUSE SYSTEM Q-T Interval 440 ms MUSE SYSTEM QTC Calculated (Bezet) 484 ms MUSE SYSTEM Calculated P [place] 43 degrees MUSE SYSTEM Calculated R [place] -62 degrees MUSE SYSTEM Calculated T [place] 14 degrees MUSE SYSTEM INTERPRETATION Sinus rhythm with Premature ventricular complexes Left axis deviation Non-specific intra-ventricular conduction block Poor R-wave progression Abnormal ECG No previous ECGs available I personally reviewed the tracing and edited the fellows interpretation Confirmed by fellow MD Pavel, Alex De La Rosa ([id number]) on 05/10/2013 11:12:18 AM Confirmed by MD Thomas Douglas ([id number]) on 05/10/2013 3:33:20 PM MUSE SYSTEM 05/10/2013 9:20 AM EST 05/10/2013 3:33 PM EST Kit Self MD ECG ORDERABLES MUSE SYSTEM documented in this encounter Visit Diagnoses Diagnosis CAD (coronary artery disease)- Primary Coronary atherosclerosis of unspecified type of vessel, kake or graft ASCVD (arteriosclerotic cardiovascular disease) Unspecified cardiovascular disease Atherosclerotic heart disease of kake coronary artery with unstable angina pectoris Coronary atherosclerosis of kake coronary artery T2DM (type 2 diabetes mellitus) Type II or unspecified type diabetes mellitus without mention of complication, not stated as uncontrolled ASCVD (arteriosclerotic cardiovascular disease) Unspecified cardiovascular disease CAD (coronary artery disease) Coronary atherosclerosis of unspecified type of vessel, kake or graft Atherosclerotic heart disease of kake coronary artery with unstable angina pectoris Coronary atherosclerosis of kake coronary artery documented in this encounter Care Teams Stock Layer Relationship Specialty Start Date End Date Dewayne Mcdermott MD PCP - General 01/07/12 01/30/14 documented as of this encounter
--- OUTSIDE RECORDS SUMMARY | 2024-05-24 14:34 | XMS_ITS | Encounter Summary ---
Author Organization [facility] [place] [address] Care Team Providers Care Cobbler Apprentice Name Role Phone Dewayne Mcdermott MD Primary Care Provider Unavaila ble Reason for Visit * Reason Onset Date Comments Medication Refill 09/23/2013 Encounter Details Date Type Department Care Team (Late st Contact Info) Description 09/23/2013 Refill Cardiology at [address] [phone] Kit Self MD [facility] [address] Medication Refill Social History Tobacco Use Types [...] AM EST Hospital Encounter Non-[place] [phone] Arrived 08/09/2024 10:00 AM EDT Hospital Encounter Non-[place] [phone] Arrived documented as of this encounter Visit Diagnoses Diagnosis ASCVD (arteriosclerotic cardiovascular disease)- Primary Unspecified cardiovascular disease documented in this encounter Care Teams Cobbler Apprentice Relationship Specialty Start Date End Date Dewayne Mcdermott MD PCP - General 01/07/12 01/30/14 documented as of this encounter
--- OUTSIDE RECORDS SUMMARY | 2024-05-24 14:34 | XMS_ITS | Encounter Summary ---
Author Organization Formerly [facility] Address [facility] [place] [address] Care Team Providers Care Oven Equipment Repairer Name Role Phone Jennifer Haro MD Primary Care Provider Court ble Encounter Details Date Type Department Care Team (Late st Contact Info) Description 05/13/2013 10:55 AM EST - 05/13/2013 11:55 AM EST Surgery [place] [id number] Jennifer Curry MD [facility] [place] [address] CARDIAC CATHETERIZATION Social History Tobacco Use Types [...] appointments: During 8am-5pm Thursday through Thursday call [phone] to speak with a nurse in the cardiology clinic All other times call [phone] and ask to speak to the healthcare consultant diagnostic cardiac sonographer. Return to work: One week Driving: No driving for 48 hours after catheterization. Follow up Appointments: PCP Call for appointment in 1-2 weeks. Home Aide You should be seen in 3-4 weeks for follow up. Follow up with Dr Nicolette maguire jun 03. Home oxygen therapy: N/A Arrangements for VNA/home care: none * Attachments The following attachments cannot be sent through Care Everywhere. * CHEST PAIN (ANGINA): AFTER YOUR VISIT (BRAZILIAN) * CARDIAC REHABILITATION: AFTER YOUR VISIT (BRAZILIAN) * PERCUTANEOUS CORONARY INTERVENTION: WHAT TO EXPECT AT HOME (BRAZILIAN) documented in this encounter Medications at Time [...] mg by mouth nightly as needed. 06/14/2013 Ripley-3 Fatty Acids (FISH OIL) 500 mg Cap Take by mouth daily. 01/14/2016 lamotrigine (LAMICTAL) 100 mg tablet Take 200 mg by mouth daily. 09/01/2018 alprazolam (XANAX XR) 3 mg 24 hr tablet Take 3 mg by mouth nightly. 09/18/2020 [facility] c[facility] #[id number] (PROBIOTIC & ACIDOPHILUS) 300-250 million cell-mg Cap [...] VS documented in doc flow sheets from [id number]. * Shyanne Casillas RN - 05/13/2013 3:53 PM EST Pt arrived from cardiac cath recovery on stretcher at 1430. Alert and oriented,denies chest pain ordyspnea, right groin site clean and intact, + pedal pulse, chief marketing officer shows normal sinus rhythm with frequent PVC's. [...] - 05/13/2013 1:17 PM EST Marquez Hendrix [phone] 05/13/2013 62 y.o. Admission History and Physical [...] anxiety bc it reminds him of prior [place] pain. At cath he was found to [...] and clopidogrel per protocol. Dagoberto Amaral MD Prosthetics Technician Pager# [phone] 05/13/2013 * Raji Novak - 05/13/2013 10:50 [...] anxiety bc it reminds him of prior [place] pain. Filed Vitals: 05/13/13 1046 BP: 110/70 [...] 05/16/2013 11:07 PM ESTAssociated Order(s): SCAN DOC: COMPUTER ENGINEER documented in this encounter Miscellaneous Notes * [...] disease) Priority: High ?? Heart catheterization in [facility] [...] stress test at [facility] in [place], [place] May 02, 2013 during which he developed left shoulder and arm discomfort during submaximal exercise on the treadmill and after which he was converted to a pharmacologic test; nuclear imaging showed ejection fraction of 45% with a partially reversible inferior defect ?? Cath [facility] 05/13/2013: 3.0 X 12 mm JON to [...] anxiety bc it reminds him of prior [place] pain. At cath he was found to [...] 10 mg by mouth nightly as needed. Ripley-3 Fatty Acids (FISH OIL) 500 mg Cap Take by mouth daily. multivitamin capsule 1 capsule Take 1 capsule by mouth daily. LANCETS MISC by Misc.(Non-Drug; Combo Route) route. lamotrigine (LAMICTAL) 100 mg tablet 100 mg Take 100 mg by mouth daily. alprazolam (XANAX XR) 3 mg 24 hr tablet 3 mg Take 3 mg by mouth every morning. lactobac cmb #[id number] (PROBIOTIC & ACIDOPHILUS) 300-250 million cell-mg Cap [...] appointments: During 8am-5pm Thursday through Thursday call [phone] to speak with a nurse in the cardiology clinic All other times call [phone] and ask to speak to the healthcare consultant diagnostic cardiac sonographer. Return to work: One week Driving: No driving for 48 hours after catheterization. Follow up Appointments: PCP Call for appointment in 1-2 weeks. Home Aide You should be seen in 3-4 weeks for follow up. Follow up with Dr Nicolette maguire jun 03. Home oxygen therapy: N/A Arrangements for VNA/home care: none General Instructions None Future Appointments and Orders Future Appointments: Provider: Department: Dept Phone: Center: 06/14/2013 9:40 AM iKt Self MD Cardiology [phone] [facility] Joint Appt Nurse One Cardiology NAHUN Corrales [phone] [facility] Future Orders Please Complete By Expires [...] Information: Dr. Antoinette Amaral Section of Cardiology [facility] [phone] Discharge References/Attachments: Discharge References/Attachments None Signed: Baldemar Martínez DATE: 05/14/2013 documented in this encounter Plan of Treatment Upcoming Encounters Date Type Department Care Team (Late st Contact Info) Description 06/15/2024 10:00 AM EST Hospital Encounter Non-[place]vasive [place] [address] Arrived 08/09/2024 10:00 AM EDT Hospital Encounter Non-Invasive [place] [address] Arrived documented as of this encounter Procedures Procedure Name Priority Date/Time Associated Diagnosis Comments COMPUTER ENGINEER SCAN 05/16/2013 11:07 PM EST POCT GLUCOSE Routine 05/14/2013 12:08 PM EST POCT GLUCOSE Routine 05/14/2013 7:57 AM EST EKG 12-LEAD Routine 05/14/2013 7:40 AM EST CAD (coronary artery disease) BMP W/FASTING GLUCOSE Routine 05/14/2013 3:30 AM EST DIFFERENTIAL, AUTOMATED Routine 05/14/2013 3:30 AM EST CARDIAC ENZYMES ([facility]/CGP) Routine 05/14/2013 3:30 AM EST CBC (WITH DIFF) Routine 05/14/2013 3:30 AM EST POCT GLUCOSE Routine 05/14/2013 3:10 AM EST POCT GLUCOSE Routine 05/13/2013 11:40 PM EST POCT GLUCOSE Routine 05/13/2013 10:14 PM EST POCT GLUCOSE Routine 05/13/2013 8:52 PM EST POCT GLUCOSE Routine 05/13/2013 3:55 PM EST EKG 12-LEAD Routine 05/13/2013 1:57 PM EST CAD (coronary artery disease) CARDIAC ENZYMES ([facility]/CGP) STAT 05/13/2013 1:00 PM EST POCT GLUCOSE Routine 05/13/2013 10:46 AM EST documented in this encounter Results * SCAN DOC: COMPUTER ENGINEER (05/16/2013 11:07 PM EST) Anatomical Region Laterality Modality Other Narrative 05/16/2013 11:09 PM EST Procedure Note Provider, Scanning - 05/16/2013 11:07 PM EST Scanning Provider MEDIA MGR SCAN EXT O RDR/RSLT * (ABNORMAL) POCT Glucose (05/14/2013 12:08 PM EST) Glucose, POC 222(H) 60 - 199 mg/dL [facility] Comment: Supplemental ranges: <110 mg/dL before meals <200 mg/dL all other times of the day Blood specimen (specimen) 05/14/2013 12:08 PM EST 05/14/2013 12:08 PM EST Kit Self MD POINT OF CARE TEST O RDERABLES Performing Organization Address [facility] Co de Phone Number [facility] * POCT Glucose (05/14/2013 7:57 AM EST) Glucose, POC 85 60 - 199 mg/dL [facility] Comment: Supplemental ranges: <110 mg/dL before meals <200 mg/dL all other times of the day Blood specimen (specimen) 05/14/2013 7:57 AM EST 05/14/2013 7:57 AM EST Kit Self MD POINT OF CARE TEST O RDERABLES Performing Organization Address [facility]/ZIP Co de Phone Number [facility] * EKG 12 Lead (05/14/2013 7:40 AM EST) Ventricular rate 72 BPM MUSE SYSTEM Atrial Rate 72 BPM MUSE SYSTEM P-R Interval 208 ms MUSE SYSTEM QRS Duration 122 ms MUSE SYSTEM Q-T Interval 416 ms MUSE SYSTEM QTC Calculated (Bezet) 455 ms MUSE SYSTEM Calculated P [place] 67 degrees MUSE SYSTEM Calculated R [place] -59 degrees MUSE SYSTEM Calculated T [place] -12 degrees MUSE SYSTEM INTERPRETATION Sinus rhythm [...] BMP w/fasting Glucose (05/14/2013 3:30 AM EST) [facility] Glucose Fasting 83 65 - 99 mg/dL [...] of Diabetes Mellitus, Position Statement from the [place] Diabetes Association. ??Diabetes Care, Volume 33, Supplement 1, Apr 2009 Blood Urea Nitrogen 21(H) 10 - 20 mg/dL CERNER MILLENNIUM Creatinine 0.99 0.80 - 1.50 mg/dL CERNER MILLENNIUM Comment: Please note that the pediatric reference intervals supplied above were not validated at [facility]. Results from pediatric patients should be interpreted [...] Curry MD CHEMISTRY ORDERABLES Performing Organization Address [facility] de Phone Number MONICA PERALTA * (ABNORMAL) Cardiac Enzymes (05/14/2013 3:30 AM EST) Troponin-T 0.05(H) <=0.03 ng/mL MONICA MILTONSEPIDHEIUM Comment: 0.03 ng/mL: Represents the 99th percentile upper reference limit for normals. >0.03 ng/mL: Elevated cardiac troponin T level indicative of myocardial damage. Diagnosis of acute, evolving or recent [place] requires a typical rise and gradual fall [...] consensus document of the Joint Society of Cardiology/[place] College of Cardiology Committee for the redefinition of myocardial infarction. ??Journal of the [place] College of Cardiology 2000; 36: 959-969] Creatine Kinase 62 0 - 200 unit/L MONICA BENITEZIUM Blood specimen (specimen) 05/14/2013 3:30 AM EST 05/14/2013 3:32 AM EST Narrative Resulting Agency Comment Spec In Lab Jennifer Curry MD CHEMISTRY ORDERABLES Performing Organization Address [facility] de Phone Number MONICA BENITEZTaDaweb * (ABNORMAL) CBC (with Diff) (05/14/2013 3:30 AM EST) White Blood Cell 5.9 4.0 - 10.0 x10(3)/mc L [facility] Red Blood Cell 4.24(L) 4.63 - 6.08 x10(6)/mc L [facility] Hemoglobin 12.2(L) 13.7 - 17.5 gm/dL [facility] Hematocrit 37.4(L) 40.0 - 51.0 % [facility] Mean Cell Volume 88.2 79.0 - 92.0 fL [facility] Mean Cell Hemoglobin 28.8 25.6 - 32.[address] [facility] Mean Cell Hemoglobin Concentration 32.6 32.0 - 36.5 gm/dL [facility] Platelet 185 145 - 370 x10(3)/mc L [facility] RDW Standard Deviation 45.7 35.0 - 46.0 fL [facility] MILL[facility]UM RDW coefficient of variation 14.2 10.9 - 14.4 % [facility] MILLENNIUM Mean Platelet Volume 9.6 9.0 - 12.0 fL [facility] MILLENNIUM Blood specimen (specimen) 05/14/2013 3:30 AM EST 05/14/2013 3:32 AM EST Narrative Resulting Agency Comment Spec In Lab Jennifer Curry MD HEMATOLOGY ORDERABLE S Performing Organization Address [facility] Co de Phone Number [facility] * POCT Glucose (05/14/2013 3:10 AM EST) Glucose, POC 87 60 - 199 mg/dL [facility] Comment: Supplemental ranges: <110 mg/dL before meals <200 mg/dL all other times of the day Blood specimen (specimen) 05/14/2013 3:10 AM EST 05/14/2013 3:10 AM EST Kit Self MD POINT OF CARE TEST O RDERABLES [facility] * POCT Glucose (05/13/2013 11:40 PM EST) Glucose, POC 141 60 - 199 mg/dL [facility] Comment: Supplemental ranges: <110 mg/dL before meals <200 mg/dL all other times of the day Blood specimen (specimen) 05/13/2013 11:40 PM EST 05/13/2013 11:40 PM EST Kit Self MD POINT OF CARE TEST O RDERABLES Performing Organization Address [facility] de Phone Number [facility] * (ABNORMAL) POCT Glucose (05/13/2013 10:14 PM EST) Glucose, POC 224(H) 60 - 199 mg/dL [facility] Comment: Supplemental ranges: <110 mg/dL before meals <200 mg/dL all other times of the day Blood specimen (specimen) 05/13/2013 10:14 PM EST 05/13/2013 10:14 PM EST Kit Self MD POINT OF CARE TEST O RDERALOREE Performing Organization Address [facility] de Phone Number [facility] * (ABNORMAL) POCT Glucose (05/13/2013 8:52 PM EST) Glucose, POC 318(H) 60 - 199 mg/dL [facility] Comment: Supplemental ranges: <110 mg/dL before meals <200 mg/dL all other times of the day Blood specimen (specimen) 05/13/2013 8:52 PM EST 05/13/2013 8:52 PM EST Kit Self MD POINT OF CARE TEST O RDERABLES Performing Organization Address [facility] de Phone Number [facility] * POCT Glucose (05/13/2013 3:55 PM EST) Glucose, POC 90 60 - 199 mg/dL [facility] Comment: Supplemental ranges: <110 mg/dL before meals <200 mg/dL all other times of the day Blood specimen (specimen) 05/13/2013 3:55 PM EST 05/13/2013 3:55 PM EST Kit Self MD POINT OF CARE TEST O RDERABLES Performing Organization Address [facility] Co de Phone Number [facility] * EKG 12 Lead (05/13/2013 1:57 PM EST) Pathologist [facility] Ventricular rate 59 BPM MUSE SYSTEM Atrial Rate 59 BPM MUSE SYSTEM P-R Interval 224 ms MUSE SYSTEM QRS Duration 132 ms MUSE SYSTEM Q-T Interval 438 ms MUSE SYSTEM QTC Calculated (Bezet) 433 ms MUSE SYSTEM Calculated P [place] 37 degrees MUSE SYSTEM Calculated R [place] -61 degrees MUSE SYSTEM Calculated T [place] -29 degrees MUSE SYSTEM INTERPRETATION Sinus bradycardia with 1st degree A-V block Left axis deviation Non-specific intra-ventricula r conduction block T wave abnormality, consider anterolateral ischemia Abnormal ECG Confirmed by MD William, Navid ([id number]) on 05/14/2013 3:52:55 PM MUSE SYSTEM 05/13/2013 1:57 PM EST 05/14/2013 3:52 PM EST Jennifer Curry MD ECG ORDERABLES Performing Organization Address [facility] Co de Phone Number MUSE SYSTEM * Cardiac Enzymes (05/13/2013 1:00 PM EST) [facility] Troponin-T <0.03 <=0.03 ng/mL [facility] Comment: 0.03 ng/mL: Represents the 99th percentile upper reference limit for normals. >0.03 ng/mL: Elevated cardiac troponin T level indicative of myocardial damage. Diagnosis of acute, evolving or recent [place] requires a typical rise and gradual fall [...] consensus document of the Joint Society of Cardiology/[place] College of Cardiology Committee for the redefinition of myocardial infarction. ??Journal of the [place] College of Cardiology 2000; 36: 959-969] Creatine Kinase 52 0 - 200 unit/L MONICA MILTONZINA Blood specimen (specimen) 05/13/2013 1:00 PM EST 05/13/2013 1:19 PM EST Narrative Resulting Agency Comment Spec In Lab Kit Self MD CHEMISTRY ORDERABLES Performing Organization Address [facility] Co de Phone Number MONICA PERALTA * POCT Glucose (05/13/2013 10:46 AM EST) [facility] Signature Glucose, POC 113 60 - 199 mg/dL MONICA MILTONSEPIDEHGENE Comment: Supplemental ranges: <110 mg/dL before meals <200 mg/dL all other times of the day Blood specimen (specimen) 05/13/2013 10:46 AM EST 05/13/2013 10:46 AM EST Kit Self MD POINT OF CARE TEST O RDERABLES Performing Organization Address [facility] de Phone Number MONICA PERALTA documented in this encounter Visit Diagnoses Diagnosis ASCVD (arteriosclerotic cardiovascular disease)- Primary Unspecified cardiovascular disease CAD (coronary artery disease) Coronary atherosclerosis of unspecified type of vessel, [place] or graft Atherosclerotic heart disease of [place] coronary artery with unstable angina pectoris Coronary atherosclerosis of [place] coronary artery ASCVD (arteriosclerotic cardiovascular disease) Unspecified cardiovascular disease CAD (coronary artery disease) Coronary atherosclerosis of unspecified type of vessel, [place] or graft Atherosclerotic heart disease of [place] coronary artery with unstable angina pectoris Coronary atherosclerosis of [place] coronary artery documented in this encounter Administered [...] Villalpando, NAHUN) 0900 (Given - Provider: Shyanne Casillas RN) hydrochlorothiazide (HYDRODIURIL) tablet 12.5 mg (CANCELED) 12.5 mg, Oral, DAILY, First dose on Thu05/13/13 at 1600, Until Discontinued, Routine 1600 (Not Given - Provider: Ely Villalpando RN - Reason: See comment - Comment: 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) 0900 (Given - Provider: Shyanne Casillas RN) [...] See comment - Comment: 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) 0900 (Given - Provider: Shyanne Casillas RN) lisinopril (PRINIVIL;ZESTRIL) tablet 10 mg (CANCELED) 10 mg, Oral, DAILY, First dose on Thu05/13/13 at 1600, Until Discontinued, Routine 1600 (Not Given - Provider: Ely Villalpando RN - Reason: See comment - Comment: 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
--- OUTSIDE RECORDS SUMMARY | 2024-05-24 14:34 | XMS_ITS | Encounter Summary ---
Author Organization [facility]ly [facility] [place] [address] Care Team Providers Care Administrative Support Assistant Name Role Phone Dewayne Mcdermott MD Primary Care Provider Unavaila ble Reason for Visit * Reason Comments Follow-up Encounter Details Date Type Department Care Team (Late st Contact Info) Description 06/17/2013 1:15 PM EST Office Visit Dermatology at [address] [phone] Adis Gonzalez MD [address] [place] [address], [place] [address] Dermatitis (Primary Dx) Social History Tobacco Use [...] is about to begin cardiac rehab at [facility], and I think this activity, getting out [...] AM EST Hospital Encounter [place] [address] Arrived 08/09/2024 10:00 AM EDT Hospital Encounter [place] [address] Arrived documented as of this encounter Visit Diagnoses Diagnosis Dermatitis- Primary Contact dermatitis and other eczema, due to unspecified cause documented in this encounter Care Teams Administrative Support Assistant Relationship Specialty Start Date End Date Dewayne Mcdermott MD PCP - General 01/07/12 01/30/14 documented as of this encounter
[2024-05-24 15:28] LABS: HCT 42.6 % (40.0-50.0); HGB 13.7 g/dL (13.5-17.5); MCH 28.8 pg (27.0-33.0); MCHC 32.2 % (32.0-36.0); MCV 90 fL (80-95); MPV 9.5 fL (8.0-11.0); Platelet Count 229 10^3/uL (130-400); RBC 4.75 10^6/uL (4.36-5.78); RDW 13.1 % (11.8-14.1); RDW-SD 42.6 fL; WBC 6.39 10^3/uL (4.4-10.8)
[2024-05-24 15:59] LABS: Anion Gap 10.8 mmol/L (3-11); BUN 21 mg/dL (7-18); CO2 25.2 mmol/L (21.0-32.0); CREATININE 1.2 mg/dL (0.70-1.30); Calcium 9.4 mg/dL (8.5-10.1); Chloride 103 mmol/L (98-107); Estimated GFR 63.46 (mL/min/1.73m2); Glucose 268 mg/dL (74-106); Magnesium 1.7 mg/dL (1.8-2.4); Potassium 4.6 mmol/L (3.5-5.1); Sodium 139 mmol/L (136-145)
== END 2024-05-24 14:15 | disposition home or self-care (01) ==
LOC: NCHCN 14:14
PROVIDERS: PCP Student in an Organized Health Care Education/Training Program; Visit Provider Student in an Organized Health Care Education/Training Program
DX: I10 Essential (primary) hypertension (principal)
CPT/HCPCS: 80048; 85027; 83735

== ENCOUNTER → 2024-06-08 14:54 | Outpatient (BNVA) | payer MEDICARE, SELFPAY | PROVIDERS: PCP Student in an Organized Health Care Education/Training Program; Visit Provider Student in an Organized Health Care Education/Training Program | DX: Z95.810 Presence of automatic (implantable) cardiac defibrillator (principal); I48.0 Paroxysmal atrial fibrillation | CPT/HCPCS: 93282 ==

== ENCOUNTER 2024-07-16 20:38 | Emergency (ER) | payer MEDICARE, SELFPAY ==
--- NOTE | 2024-07-16 20:30 | RT.EKG_ITS ---
APPROVED REPORT Exam: Resting ECG Reason for Exam: dizzy Patient Location: E HR:60 bpm ECG Measurements Heart Rate [address] 291 P [id number] QRSd 143 QRS -64 QT 476 T 5 QTc 476 Conclusion Atrial-paced complexes...other complexes also detected Prolonged CT interval...CT >220, V-rate 50- 90 Left bundle branch block...QRSd>120, broad/notched R
[2024-07-16 20:38] VITALS: BP 177/76; PULSE 60; RESP 15; TEMP 36.5; O2SAT 97
--- NOTE | 2024-07-16 20:45 | DI.RAD_ITS ---
Exam(s) XR PORTABLE CHEST AP EXAM: XR PORTABLE CHEST AP CLINICAL HISTORY: dyspnea, ?CHF. TECHNIQUE: 2D digital imaging was performed. COMPARISON: CR XR RIBS RT PA CHEST 3V from 06/12/2023 FINDINGS: Single AP portable view. Bipolar left subclavian pacemaker again noted with lead tips in RA and RV, unchanged. Left coronary artery stent noted. Heart size is upper normal. The mediastinum is not widened. Lungs are clear. No infiltrates nor obvious pleural effusions. Healing fracture of the right 6 rib noted. This was acute appearance in May 2023. There is also a healed fracture of the right 8th rib again noted. On the opposite-left side there are again noted 3 contiguous left rib plates in the 8th, 9th, and 10th left ribs, also previously present. No pleural effusions. No pneumothorax. IMPRESSION: No acute pulmonary findings on this single AP portable view of the chest. Rib findings as above. Pacemaker. Coronary artery stent. No evidence of pulmonary edema. DATA REPOSITORY: RADIATION DOSE DELIVERED:
[2024-07-16 20:59] LABS: Abs Immature Grans 0.05 10^3/uL (0.0-0.06); Absolute Basophil Count 0.06 10^3/uL (0.0-0.2); Absolute Eosinophil Count 0.72 10^3/uL (0.0-0.7); Absolute Monocyte Count 0.47 10^3/uL (0.1-0.8); Absolute Neutrophil Count 3.94 10^3/uL (1.2-6.7); BE (Venous) -1 mmol/L (-2-3); Basophils % 0.9 %; Eosinophils % 10.5 %; HCO3 (Venous) 24 mmol/L (23-28); HCT 43.3 % (40.0-50.0); HGB 14.1 g/dL (13.5-17.5); Immature Grans % 0.7 %; Lymphocytes % 23.4 %; MCH 28.8 pg (27.0-33.0); MCHC 32.6 % (32.0-36.0); MCV 88 fL (80-95); MPV 8.9 fL (8.0-11.0); Monocytes % 6.9 %; Neutrophils % 57.6 %; O2 Sat (Venous) 54 %; Platelet Count 239 10^3/uL (130-400); RDW 13.9 % (11.8-14.1); TCO2 (Venous) 22 mmol/L (24-29); WBC 6.84 10^3/uL (4.4-10.8); pCO2 (Venous) 41 mmHg (41-51); pH (Venous) 7.38 (7.31-7.41); pO2 (Venous) 29 mmHg
--- NOTE | 2024-07-16 21:03 | W.ED.GENAD ---
Discharge Plan Disposition Patient Disposition: Home Condition: Stable Discharge Details Clinical Impression: Exertional dyspnea Primary Care Provider: Ralph Bright ED Provider: Yaron Fitzpatrick Home Meds and New Rx's Prescriptions: New furosemide 20 mg tablet 20 mg PO DAILY Qty: 14 0RF Continued nitroglycerin [Nitrostat] 0.4 mg tablet, sublingual 0.4 mg sublingual Q5M PRN (Reason: chest pain) Qty: 30 3RF Rx Instructions: do not exceed 3 doses per episode metoprolol succinate 100 mg tablet extended release 24 hr 100 mg PO DAILY magnesium chloride [Mag 64] 64 mg tablet,delayed release (DR/EC) 128 mg PO TID cholecalciferol (vitamin D3) 50 mcg (2,000 unit) capsule 50 mcg PO DAILY zolpidem 5 mg tablet 10 mg PO QHS PRN lamotrigine 200 mg tablet 200 mg PO DAILY Xarelto 20 mg tablet 20 mg PO DAILY Qty: 90 3RF polyethylene glycol 3350 [Miralax] 17 gram powder in packet 17 g PO DAILY gabapentin 300 mg capsule 300 mg PO TID pantoprazole [Protonix] 20 MG tablet,delayed release (DR/EC) 40 mg PO HS Patient Comments: 4//18-40mg PO daily per pt atorvastatin [Lipitor] 80 mg tablet 20 mg PO HS Patient Comments: TAKE 1 TABLET BY MOUTH DAILY AT BEDTIME lisinopril [Zestril] 2.5 mg tablet 2.5 mg PO QAM Patient Comments: TAKE 1 TABLET BY MOUTH EVERY DAY multivitamin Tablet 1 tab PO DAILY metformin 1,000 mg tablet 850 mg PO TID amiodarone 100 mg tablet 400 mg PO DAILY insulin glargine [Lantus Solostar U-100 Insulin] 100 unit/mL (3 mL) insulin pen 10 unit subcut DAILY Discharge Instructions Additional Instructions: Your blood work and x-ray did not show any concerning findings at this time. You were started on a medication called furosemide to help get some fluid out of your body. Follow-up with your primary care provider within 1 to 2 weeks and discuss if they want you to continue the furosemide. If you feel more ill, have severe worsening shortness of breath or chest pain return to the emergency department for reevaluation. HPI General Mode of arrival: EMS. Date/Time Provider Initiated Documentation: 03/29/25 20:49. Limitations to Documentation: no limitations. Information obtained by: patient. History of Present Illness 74 year old M presents to the emergency department with the chief complaint of dyspnea and chest pain with exertion, described as moderate, Patient started experiencing this day(s) (4) and it has been constant. Rest improves symptom(s), Movement worsens symptoms . Patient notes chest pain and shortness of breath; denies fever/chills and nausea/vomiting. Patient did receive the following treatments prior to arrival, none Related Data Home Medications ?Medication ?Instructions ?Recorded ?Confirmed pantoprazole 20 mg tablet,delayed 40 mg PO HS 12/06/13 07/16/24 release (Protonix) rivaroxaban 20 mg tablet (Xarelto) 20 mg PO DAILY #90 tabs 09/06/19 07/16/24 atorvastatin 80 mg tablet (Lipitor) 20 mg PO HS 12/19/20 07/16/24 polyethylene glycol 3350 17 gram 17 g PO DAILY 10/03/21 07/16/24 oral powder packet (Miralax) lisinopril 2.5 mg tablet (Zestril) 2.5 mg PO QAM 11/20/21 07/16/24 multivitamin 1 tab PO DAILY 11/20/21 07/16/24 nitroglycerin 0.4 mg sublingual 0.4 mg sublingual Q5M PRN chest 07/31/22 07/16/24 tablet (Nitrostat) pain #30 tabs magnesium chloride 64 mg 128 mg PO TID 04/01/23 07/16/24 (magnesium chloride) tablet,delayed release (Mag 64) lamotrigine 200 mg tablet 200 mg PO DAILY 06/10/23 07/16/24 amiodarone 100 mg tablet 400 mg PO DAILY 06/08/24 07/16/24 cholecalciferol (vitamin D3) 50 50 mcg PO DAILY 06/08/24 07/16/24 mcg (2,000 unit) capsule gabapentin 300 mg capsule 300 mg PO TID 06/08/24 07/16/24 metformin 1,000 mg tablet 850 mg PO TID 06/08/24 07/16/24 metoprolol succinate 100 mg 100 mg PO DAILY 06/08/24 07/16/24 tablet,extended release 24 hr zolpidem 5 mg tablet 10 mg PO QHS PRN 06/08/24 07/16/24 furosemide 20 mg tablet 20 mg PO DAILY #14 tabs 07/16/24 insulin glargine 100 unit/mL (3 10 unit subcut DAILY 07/16/24 07/16/24 mL) subcutaneous pen (Lantus Solostar U-100 Insulin) Previous Rx's ?Medication ?Instructions ?Recorded rivaroxaban 20 mg tablet (Xarelto) 20 mg PO DAILY #90 tabs 09/06/19 nitroglycerin 0.4 mg sublingual 0.4 mg sublingual Q5M PRN chest 07/31/22 tablet (Nitrostat) pain #30 tabs furosemide 20 mg tablet 20 mg PO DAILY #14 tabs 07/16/24 Allergies Allergy/AdvReac Type Severity Reaction Status Date / Time adhesive tape Allergy Unknown rash Verified 07/16/24 20:58 latex AdvReac Intermediate trouble Verified 07/16/24 20:58 breathing/moving General Stated Complaint: Chest Pain SHAILESH: 3 Review of Systems All systems reviewed & are unremarkable except as noted in HPI and below Constitutional Constitutional: Denies chills, Denies fever(s) and Reports weakness Eyes Eyes: Denies loss of vision ENT Ears, Nose, Mouth, and Throat: Denies change in voice Cardiovascular Cardiovascular: Reports chest pain and Reports dyspnea Respiratory Respiratory: Denies cough and Reports dyspnea Gastrointestinal Gastrointestinal: Denies abdominal pain, Denies nausea and Denies vomiting Musculoskeletal Musculoskeletal: Denies joint swelling Neurologic Neurologic: Denies loss of vision and Reports weakness Exam Const General: no acute distress Orientation: alert HENSC Head: normal to inspection Ears: external ears normal General nose exam: external nose normal Mouth: moist mucous membranes Eyes General: appearance normal, both eyes and all related structures Neck Neck: normal visual inspection Resp Effort & Inspection: normal respiratory effort and able to speak in complete sentences Auscultation: crackles Cardio Jugular venous pressure: no JVD Rate: regular rate Skin General skin exam: no rashes or lesions noted Neuro General: patient alert and patient oriented x3 Extrem General: normal to inspection Psych Mental Status: mental status grossly normal Course Vital Signs Vital signs: Vital Signs Temperature 36.5 C 07/16/24 20:38 Pulse 60 07/16/24 20:38 Respiratory Rate 15 07/16/24 20:38 Blood Pressure 177/76 H 07/16/24 20:38 Pulse Oximetry 97 07/16/24 20:38 Temperature 36.5 C 07/16/24 20:38 Pulse 60 07/16/24 20:38 Respiratory Rate 15 07/16/24 20:38 Respiratory Effort Short of Breath 07/16/24 20:48 Respiratory Depth Normal 07/16/24 20:48 Respiratory Pattern Normal 07/16/24 20:48 Blood Pressure 177/76 H 07/16/24 20:38 Blood Pressure Position Supine 07/16/24 20:38 Pulse Oximetry 97 07/16/24 20:38 Oxygen Delivery Method Room Air 07/16/24 20:38 Oxygen Flow Rate 0 07/16/24 20:38 Pain Level 0 07/16/24 20:48 Lab/Test Results Lab/Test Results: Laboratory Tests Range/Units 07/16/24 20:53 WBC (4.4-10.8) 10^3/uL 6.84 RBC (4.36-5.78) 10^6/uL 4.90 Hgb (13.5-17.5) g/dL 14.1 Hct (40.0-50.0) % 43.3 MCV (80-95) fL 88 MCH (27.0-33.0) pg 28.8 MCHC (32.0-36.0) % 32.6 RDW (11.8-14.1) % 13.9 Plt Count (130-400) 10^3/uL 239 MPV (8.0-11.0) fL 8.9 Immature Gran % % 0.7 Neutrophils % % 57.6 Lymphocytes % % 23.4 Monocytes % % 6.9 Eosinophils % % 10.5 Basophils % % 0.9 Nucleated RBC % (0.0-0.3) % 0.0 Absolute Neutrophils (1.2-6.7) 10^3/uL 3.94 Absolute Lymphocytes (1.2-3.4) 10^3/uL 1.60 Absolute Monocytes (0.1-0.8) 10^3/uL 0.47 Absolute Eosinophils (0.0-0.7) 10^3/uL 0.72 H Absolute Basophils (0.0-0.2) 10^3/uL 0.06 VBG pH (7.31-7.41) 7.38 VBG pCO2 (41-51) mmHg 41 VBG pO2 mmHg 29 VBG HCO3 (23-28) mmol/L 24 VBG Total CO2 (24-29) mmol/L 22 L VBG O2 Saturation % 54 VBG Base Excess (-2-3) mmol/L -1 Medical Decision Making 74-year-old male with a history of coronary artery disease, defibrillator, A-fib on rivaroxaban who comes in with 4 days of worsening shortness of breath with exertion along with chest tightness with exertion. He denies any vomiting, diaphoresis, fevers or chills. He is stable on arrival when resting in bed but with small amounts of movement he does appear dyspneic. He is speaking in full sentences, he has crackles at the bases bilaterally, mild pitting edema of the ankles, no calf tenderness. Did a bedside ultrasound which showed diminished EF which is been present on prior echoes. labs unremarkable other then mild elevation in probnp, first troponin negative and has had symptoms for 4 days so suspect this second will be negative. X-ray on my read shows no acute findings. Discussed results with him, discussed if second troponin is negative would want stay for observation admission versus discharge. After discussion he prefers outpatient management which I feel is reasonable given thus far reassuring workup. He is already urinating after 1 dose of Lasix. He is not requiring any oxygen. He is able to move around without any dyspnea. If negative troponin on the second 1 we will plan for discharge and follow-up with his PCP, discussed return precautions. Differential Diagnosis Differential Diagnosis: chf, anemia, nstemi Medical Records Medical records reviewed: Yes I reviewed the patient's medical records. Lab Data Lab results reviewed: Yes I reviewed the patient's lab results. ECG Data Attestation: I personally reviewed and interpreted this ECG (s) as follows: Prior ECG tracings: available for review Interpretation: sinus rate of 60 pr 291 no stemi Quality:SDOH Health Related Social Needs: No Data to Display [facility], LAT[facility] All Active Problems (Updated 07/16/24 @ 22:06 by Yaron Fitzpatrick MD) Exertional dyspnea (Acute) Bilateral cataracts (Acute) Fracture of distal end of right fibula (Acute ~03/10/23) Bilateral sensorineural hearing loss (Acute) Change in voice (Acute) Vertigo (Acute) Essential tremor (Acute) Paroxysmal atrial fibrillation (Acute) ICD (implantable cardioverter-defibrillator), dual, in situ (Acute) Left shoulder pain (Acute) Left sided sciatica (Acute) Hypokinesia of left ventricle (Acute) EF 48% Multiple fractures of ribs of left side (Acute) Medication management (Acute) jail current use of 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 medical therapy (Acute) Imbalance (Acute) Discharge planning issues (Acute) Hammer toe (Acute) Peripheral neuropathy (Chronic) Ventricular tachyarrhythmia (Chronic) s/p ICD 2014 Clinical depression (Chronic) Obstructive sleep apnea (Chronic) Diverticulosis (Acute) Gastritis (Acute) Contusion of left knee, initial encounter (Acute 08/12/17) Disequilibrium (Chronic 11/10/16) Dysphagia (Acute) Contact dermatitis (Acute) Magnesium deficiency (Acute) Hypertension (Chronic) Diabetes (Chronic) Chronic pain (Chronic) Medical History Degenerative tear of triangular fibrocartilage complex (TFCC) of wrist History of nephrolithiasis Tremor Foot drop, right COVID-19 Constipation Conjunctivitis Pressure sore History of paresthesia Leg edema Hoarseness H/O ventricular tachycardia Contusion of left chest wall Abrasion hip/leg Contusion of left elbow and forearm Hemothorax on left minimal Pleural effusion Pneumothorax on left Contusion of left lung Kidney stones Diabetic peripheral neuropathy Degenerative disc disease Depression determined by examination Type 2 diabetes mellitus Dermatitis Steatohepatitis Medication monitoring encounter Frequent falls Family history of nephrolithiasis Hard stool Hallucinations Hematuria Hypomagnesemia DVT prophylaxis Lumbar degenerative disc disease Iron deficiency anemia Ischemic cardiomyopathy Hiatal hernia GERD (gastroesophageal reflux disease) Hyperlipidemia pt. states its a fissure near his coccyx Atrial fibrillation CAD (coronary artery disease) Anal fissure Rib pain on right side Pressure ulcer, buttock Esophageal ring Unspecified fracture of the lower end of right radius, subsequent encounter for closed fracture with routine healing (08/12/17) Surgical History History of cholecystectomy History of coronary artery stent placement History of permanent cardiac pacemaker placement with defib History of esophagogastroduodenoscopy (EGD) 12/17/18 History of colonoscopy 12/17/18 Family History Father Heart disease Mother Heart disease Brother Alcoholism Social History Smoking/Tobacco Use Status: Current, status unknown Tobacco Type: e-cigarettes and smokeless tobacco Counseling given: patient declined Smoking risk assessment performed?: Yes Alcohol Intake: former Drug use: Rarely Substance use type: marijuana Details: Pt states he vapes daily Housing: house current occupation: Retired What type of physical activity do you participate in: bicycling Frequency: 3-4 times per week Do you feel safe at home: Yes Do you feel safe in your relationship?: Yes POCUS Exam (ED) Limited Cardiac Exam REASON FOR EXAM: Chest pain and Dyspnea VISUALIZED STRUCTURES: Left ventricle and Right ventricle VIEW OBTAINED: Parasternal long-axis and Subxiphoid PERTINENT FINDINGS/IMPRESSION: LV dysfunction Exam complete
[2024-07-16] MEDS: Furosemide 20 MG/2 ML VIAL IVP (21:09)
[2024-07-16 21:13] LABS: INR 1.4 (0.9-1.1); PTT Activated 29.5 sec (20.6-30.2); Prothrombin Time 13.4 sec (9.1-11.1)
[2024-07-16 21:24] LABS: ALT 98 U/L (16-63); AST 82 U/L (15-37); Albumin 4.1 g/dL (3.4-5.0); Alkaline Phosphatase 76 U/L (46-116); Anion Gap 15.3 mmol/L (3-11); BUN 14 mg/dL (7-18); Bilirubin, Total 0.5 mg/dL (0.2-1.0); CO2 25.7 mmol/L (21.0-32.0); CREATININE 1.2 mg/dL (0.70-1.30); Calcium 9.6 mg/dL (8.5-10.1); Chloride 103 mmol/L (98-107); Estimated GFR 63.07 (mL/min/1.73m2); Glucose 161 mg/dL (74-106); Magnesium 1.8 mg/dL; NT-proBNP 316 pg/mL (<300); Potassium 4.9 mmol/L (3.5-5.1); Sodium 144 mmol/L (136-145); Total Protein 7.9 g/dL (6.4-8.2); Troponin I 8 ng/L (<or=76)
[2024-07-16 21:44] LABS: Bilirubin Negative (Negative); Blood Negative (Negative); Clarity Clear (Clear); Glucose Negative (Negative); Ketones Negative (Negative); Leukocyte Esterase Negative (Negative); Nitrite Negative (Negative); Specific Gravity 1.015 (1.005-1.025); Urobilinogen 0.2 mg/dL (Up to 0.2); pH 5.5 (5-8)
[2024-07-16 21:52] LABS: COVID-19 PCR Negative (Negative); Influenza A PCR Negative (Negative); Influenza B PCR Negative (Negative); RSV PCR Negative (Negative)
[2024-07-16 21:53] LABS: Source Nasopharynx
[2024-07-16 22:15] LABS: Troponin I 8 ng/L (<or=76)
--- NOTE | 2024-07-16 22:42 | DI.VRAD_ITS ---
PROCEDURE INFORMATION: Exam: XR Chest Exam date and time: 07/16/2024 9:12 PM Age: 74 years old Clinical indication: Other: Dyspnea, ? chf TECHNIQUE: Imaging protocol: Radiologic exam of the chest. Views: 1 view. COMPARISON: CR XR RIBS RT PA CHEST 3V 06/12/2023 3:54 PM FINDINGS: Tubes, catheters and devices: Left-sided pacemaker noted. There is some asymmetric airspace opacity in the left mid and lower lung partially obscured by pacemaker and surgical hardware. Lungs: Unremarkable. No consolidation. Pleural spaces: Unremarkable. No pleural effusion. No pneumothorax. Heart/Mediastinum: Cardiomegaly. Bones/joints: Post ORIF left rib fractures. IMPRESSION: Left-sided infiltrate not excludable. Dictated and Authenticated by: Sheeba Du MD. Orderin Nanette Marrufo MD
[2024-07-16 22:53] VITALS: BP 114/78; PULSE 88; RESP 16; TEMP 36.7; O2SAT 99
== END 2024-07-17 01:18 | disposition home or self-care (01) ==
PROVIDERS: Emergency Provider Emergency Medicine; PCP Student in an Organized Health Care Education/Training Program
DX: R06.09 Other forms of dyspnea (principal); R07.9 Chest pain, unspecified; I10 Essential (primary) hypertension; I25.10 Atherosclerotic heart disease of native coronary artery without angina pectoris; I44.7 Left bundle-branch block, unspecified; I48.91 Unspecified atrial fibrillation; Z79.01 Long term (current) use of anticoagulants; Z79.84 Long term (current) use of oral hypoglycemic drugs; Z95.5 Presence of coronary angioplasty implant and graft; Z95.810 Presence of automatic (implantable) cardiac defibrillator; F17.290 Nicotine dependence, other tobacco product, uncomplicated; E11.40 Type 2 diabetes mellitus with diabetic neuropathy, unspecified
CPT/HCPCS: 36415; 80053; 82805; 82962; 87637; 93005; 93308; 96374; 99285; 71045; 81003; 83735; 83880; 84484; 85025; 85610; 85730; 93010; J1941

== ENCOUNTER 2024-07-19 17:05 | Outpatient (REF) | payer MEDICARE, SELFPAY ==
[2024-07-19 19:32] LABS: Anion Gap 13.3 mmol/L (3-11); BUN 17 mg/dL (7-18); CO2 23.7 mmol/L (21.0-32.0); CREATININE 1.3 mg/dL (0.70-1.30); Calcium 8.8 mg/dL (8.5-10.1); Chloride 107 mmol/L (98-107); Estimated GFR 57.29 (mL/min/1.73m2); Glucose 220 mg/dL (74-106); Magnesium 1.5 mg/dL; Potassium 4.7 mmol/L (3.5-5.1); Sodium 144 mmol/L (136-145)
== END 2024-07-19 17:06 | disposition home or self-care (01) ==
LOC: NCHCN 17:05
PROVIDERS: PCP Student in an Organized Health Care Education/Training Program; Visit Provider Student in an Organized Health Care Education/Training Program
DX: I10 Essential (primary) hypertension (principal)
CPT/HCPCS: 80048; 83735

== ENCOUNTER 2024-08-19 12:35 | Outpatient (REF) | payer MEDICARE, SELFPAY ==
--- NOTE | 2024-08-20 11:20 | SKI_PTH ---
PATIENT: Marquez Hendrix LOC: [facility] U#:[id number] AGE/SX: 74/M ROOM: RE08/19/[address]: LAURENT CABRERA : 1950 BED: DIS: 08/19/2024 SPEC #: [id number] RECD: 08/22/24 13:05 STATUS: NORBERT REShubham #: [id number] SYLVIA: 08/20/24 11:[address]: LAURENT CABRERA DEPT: Surgical Specimen RECD BY: Yumiko Orozco ENTERED: 08/22/24 13:05 SP TYPE: YOLANDA HAYNES DR: Ralph Bright Tissues: 1 - SKIN BIOPSY(SHAVE/PUNCH) Procedures: SKIN LEVEL 4 SPECIAL STAIN 1 Comments: [id number]
== END 2024-08-19 12:36 | disposition home or self-care (01) ==
LOC: LBN 12:35
PROVIDERS: PCP Student in an Organized Health Care Education/Training Program; Visit Provider Nurse Practitioner Family
DX: L85.8 Other specified epidermal thickening (principal)
CPT/HCPCS: 88305; 88312

== ENCOUNTER 2024-12-01 19:28 | Emergency (ER) | payer MEDICARE, SELFPAY ==
--- NOTE | 2024-12-01 19:15 | RT.EKG_ITS ---
APPROVED REPORT Exam: Resting ECG Reason for Exam: sob Patient Location: E HR:60 bpm ECG Measurements Heart Rate 60 AXIS WA 182 P 41 QRSd 216 QRS -80 QT 528 T 94 QTc 528 Conclusion Atrial-ventricular dual-paced rhythm Physician: Paced with good capture
[2024-12-01 19:33] VITALS: BP 157/62; PULSE 60; RESP 20; TEMP 36.3; O2SAT 96
[2024-12-01 19:37] VITALS: BP 157/62; PULSE 60; RESP 20; TEMP 36.3; O2SAT 96
--- NOTE | 2024-12-01 19:45 | DI.CT_ITS ---
Exam(s) CT HEAD WO EXAM: CT HEAD WO CLINICAL HISTORY: generalized weakness, eval for stroke or bleed. TECHNIQUE: Imaging Protocol: Axial computed tomography images with coronal and sagittal reformatted images were created and reviewed COMPARISON: CT CT HEAD WO from 02/18/2023 FINDINGS: Ventricles and Extra axial spaces: Normal in size and morphology for the patient's age. Hemorrhage: None. Cerebral parenchyma: No evidence of acute infarct or mass. Mild atrophy consistent with the patient's age. Midline shift: None. Brainstem/Cerebellum: Normal. Bones: No skull or facial fractures. Visualized Paranasal sinuses:Clear. Mastoids: Clear. Soft Tissues: Unremarkable. ORBITS: Unremarkable. PITUITARY: Not enlarged. IMPRESSION: No acute intracranial process. The preliminary [facility] report was reviewed. RADIATION DOSE DELIVERED: 926.79mGy.cm Total DLP DATA REPOSITORY: All CT scans at this facility are submitted to the National Radiology Data Registry (NRDR) Dose Index Registry (DIR) with the [employer] ([employer]). RADIATION OPTIMIZATION: All CT scans at this facility use at least one of these dose optimization techniques: automated exposure control; mA and/or kV adjustment per patient size (includes targeted exams where dose is matched to clinical indication); or iterative reconstruction.
--- NOTE | 2024-12-01 20:00 | DI.RAD_ITS ---
Exam(s) XR CHEST 1V IN DI DEPT EXAM: XR CHEST 1V IN DI DEPT CLINICAL HISTORY: fatigue, SOB TECHNIQUE: 2D digital imaging was performed. COMPARISON: CR,XR XR PORTABLE CHEST AP from 07/16/2024 FINDINGS: LUNGS: Clear. No pleural abnormality seen. HEART: Mildly enlarged. Pacemaker. Coronary artery stents. AORTA: Normal diameter. BONES: Fixation plates again noted in left ribs. Old right rib fractures. Soft tissues: Unremarkable. IMPRESSION: No acute findings. The preliminary [facility] report was reviewed. DATA REPOSITORY: RADIATION DOSE DELIVERED:
[2024-12-01 20:14] LABS: Abs Immature Grans 0.03 10^3/uL (0.0-0.06); HCT 41.8 % (40.0-50.0); HGB 13.1 g/dL (13.5-17.5); Immature Grans % 0.5 %; MCH 26.3 pg (27.0-33.0); MCHC 31.3 % (32.0-36.0); MCV 84 fL (80-95); MPV 9.2 fL (8.0-11.0); Platelet Count 234 10^3/uL (130-400); RBC 4.98 10^6/uL (4.36-5.78); RDW 15.6 % (11.8-14.1); RDW-SD 46.8 fL; WBC 6.36 10^3/uL (4.4-10.8)
[2024-12-01 20:29] LABS: INR 1.5 (0.9-1.1); PTT Activated 30.9 sec (20.6-30.2); Prothrombin Time 14.7 sec (9.1-11.1)
[2024-12-01 20:38] LABS: ALT 184 U/L (16-63); AST 145 U/L (15-37); Albumin 3.8 g/dL (3.4-5.0); Alkaline Phosphatase 74 U/L (46-116); Anion Gap 10.5 mmol/L (3-11); BUN 17 mg/dL (7-18); Bilirubin, Total 0.4 mg/dL (0.2-1.0); CO2 27.5 mmol/L (21.0-32.0); Calcium 9.6 mg/dL (8.5-10.1); Chloride 104 mmol/L (98-107); Estimated GFR 70.01 (mL/min/1.73m2); Glucose 136 mg/dL (74-106); NT-proBNP 356 pg/mL (<300); Potassium 4.6 mmol/L (3.5-5.1); Sodium 142 mmol/L (136-145); TSH (W/Ref FT4) 1.81 uIU/mL (0.36-3.74); Total Protein 7.5 g/dL (6.4-8.2); Troponin I 8 ng/L (<or=76)
--- NOTE | 2024-12-01 21:03 | DI.VRAD_ITS ---
PROCEDURE INFORMATION: Exam: CT Head Without Contrast Exam date and time: 12/01/2024 8:15 PM Age: 74 years old Clinical indication: Other: Generalized weakness, eval for stroke or bleed TECHNIQUE: Imaging protocol: Computed tomography of the head without contrast. COMPARISON: CT HEAD WO 02/18/2023 6:30 PM FINDINGS: Brain: Normal. No hemorrhage. Unremarkable white matter. No mass effect. Cerebral ventricles: No ventriculomegaly. Paranasal sinuses: Visualized sinuses are unremarkable. No fluid levels. Mastoid air cells: Visualized mastoid air cells are well aerated. Bones: Unremarkable. No acute fracture. Soft tissues: Unremarkable. IMPRESSION: No acute intracranial abnormality. Changes of an acute infarct may not be visible on CT for up to 24 to 48 hours. Dictated and Authenticated by: Bony Herrera MD. Orderin Leroy Finch MD
--- NOTE | 2024-12-01 21:04 | DI.VRAD_ITS ---
PROCEDURE INFORMATION: Exam: XR Chest Exam date and time: 12/01/2024 8:19 PM Age: 74 years old Clinical indication: Other: Fatigue, SOB TECHNIQUE: Imaging protocol: Radiologic exam of the chest. Views: 1 view. COMPARISON: CR XR PORTABLE CHEST AP 07/16/2024 9:12 PM FINDINGS: Tubes, catheters and devices: Left ICD device noted. Lungs: Unremarkable. No consolidation. Pleural spaces: Unremarkable. No pleural effusion. No pneumothorax. Heart/Mediastinum: Unremarkable. No cardiomegaly. Bones/joints: Old bilateral rib fractures. Previous repair left hip fractures. IMPRESSION: No acute findings. Dictated and Authenticated by: Bony Herrera MD. Orderin Leroy Finch MD
--- NOTE | 2024-12-01 21:07 | W.ED.GENAD ---
Discharge Plan Disposition Patient Disposition: Home Condition: Good Discharge Details Clinical Impression: Weakness, Transaminitis Primary Care Provider: Ralph Bright ED Provider: Stef Harper Home Meds and New Rx's Prescriptions: No Action nitroglycerin [Nitrostat] 0.4 mg tablet, sublingual 0.4 mg sublingual Q5M PRN (Reason: chest pain) Qty: 30 3RF Rx Instructions: do not exceed 3 doses per episode metoprolol succinate 100 mg tablet extended release 24 hr 100 mg PO DAILY magnesium chloride [Mag 64] 64 mg tablet,delayed release (DR/EC) 128 mg PO TID cholecalciferol (vitamin D3) 50 mcg (2,000 unit) capsule 50 mcg PO DAILY zolpidem 5 mg tablet 10 mg PO QHS PRN lamotrigine 200 mg tablet 200 mg PO DAILY Xarelto 20 mg tablet 20 mg PO DAILY Qty: 90 3RF polyethylene glycol 3350 [Miralax] 17 gram powder in packet 17 g PO DAILY gabapentin 300 mg capsule 300 mg PO TID pantoprazole [Protonix] 20 MG tablet,delayed release (DR/EC) 40 mg PO HS Patient Comments: 07/23/-40mg PO daily per pt atorvastatin [Lipitor] 80 mg tablet 20 mg PO HS Patient Comments: TAKE 1 TABLET BY MOUTH DAILY AT BEDTIME lisinopril [Zestril] 2.5 mg tablet 2.5 mg PO QAM Patient Comments: TAKE 1 TABLET BY MOUTH EVERY DAY multivitamin Tablet 1 tab PO DAILY metformin 1,000 mg tablet 850 mg PO TID amiodarone 100 mg tablet 400 mg PO DAILY insulin glargine [Lantus Solostar U-100 Insulin] 100 unit/mL (3 mL) insulin pen 10 unit subcut DAILY furosemide 20 mg tablet 20 mg PO DAILY Qty: 14 0RF Discharge Instructions Instructions: Weakness ED Additional Instructions: At this time your laboratory workup has returned reassuring. There is no evidence of significant heart attack, stroke, or other major abnormality. As we discussed together your liver numbers are increasing slowly over time. This may be due to the amiodarone or other medication. 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 Please follow-up closely with your primary care provider for further assessment. It would be reasonable to have further discussion of potential nonemergent outpatient stress testing, as well as potential pulmonary function testing for shortness of breath. As we discussed together, I am concerned that there is a low but present chance that some of this may be secondary to the impact of amiodarone on your lungs. If you notice any worsening of your symptoms, or any new symptoms such as vomiting, diarrhea, fever, chills, shortness of breath, chest pain, numbness, weakness, or fainting , please return immediately to the emergency department for reevaluation. Please follow up with your primary care provider as soon as possible for reassessment and reevaluation. As always, it was a pleasure participating in your medical care today. Referrals: Ralph Bright [Primary Care Provider, Medicine] HPI General Date/Time Provider Initiated Documentation: 12/01/24 19:36. HPI Narrative: This is a very pleasant 74-year-old male with a past medical history of a pacemaker defibrillator, coronary artery disease, diabetes mellitus, GERD, hypertension, high cholesterol, previous A-fib now currently on amiodarone and Eliquis, who presents today for 3 days of increasing weakness, mild shakiness, mild dysuria. Patient denies any chest pain. He denies any fever or chills. He does admit to mild shortness of breath when doing activities but no associated chest arm neck or shoulder pain. He denies any blood in his urine, or funny odor. He denies any change in his medications. No cough, leg swelling, or other complaints. Related Data Home Medications ?Medication ?Instructions ?Recorded ?Confirmed pantoprazole 20 mg tablet,delayed 40 mg PO HS 12/06/13 07/16/24 release (Protonix) rivaroxaban 20 mg tablet (Xarelto) 20 mg PO DAILY #90 tabs 09/06/19 07/16/24 atorvastatin 80 mg tablet (Lipitor) 20 mg PO HS 12/19/20 07/16/24 polyethylene glycol 3350 17 gram 17 g PO DAILY 10/03/21 07/16/24 oral powder packet (Miralax) lisinopril 2.5 mg tablet (Zestril) 2.5 mg PO QAM 11/20/21 07/16/24 multivitamin 1 tab PO DAILY 11/20/21 07/16/24 nitroglycerin 0.4 mg sublingual 0.4 mg sublingual Q5M PRN chest 07/31/22 07/16/24 tablet (Nitrostat) pain #30 tabs magnesium chloride 64 mg 128 mg PO TID 04/01/23 07/16/24 (magnesium chloride) tablet,delayed release (Mag 64) lamotrigine 200 mg tablet 200 mg PO DAILY 06/10/23 07/16/24 amiodarone 100 mg tablet 400 mg PO DAILY 06/08/24 07/16/24 cholecalciferol (vitamin D3) 50 50 mcg PO DAILY 06/08/24 07/16/24 mcg (2,000 unit) capsule gabapentin 300 mg capsule 300 mg PO TID 06/08/24 07/16/24 metformin 1,000 mg tablet 850 mg PO TID 06/08/24 07/16/24 metoprolol succinate 100 mg 100 mg PO DAILY 06/08/24 07/16/24 tablet,extended release 24 hr zolpidem 5 mg tablet 10 mg PO QHS PRN 06/08/24 07/16/24 furosemide 20 mg tablet 20 mg PO DAILY #14 tabs 07/16/24 insulin glargine 100 unit/mL (3 10 unit subcut DAILY 07/16/24 07/16/24 mL) subcutaneous pen (Lantus Solostar U-100 Insulin) Previous Rx's ?Medication ?Instructions ?Recorded rivaroxaban 20 mg tablet (Xarelto) 20 mg PO DAILY #90 tabs 09/06/19 nitroglycerin 0.4 mg sublingual 0.4 mg sublingual Q5M PRN chest 07/31/22 tablet (Nitrostat) pain #30 tabs furosemide 20 mg tablet 20 mg PO DAILY #14 tabs 07/16/24 Allergies Allergy/AdvReac Type Severity Reaction Status Date / Time adhesive tape Allergy Unknown rash Verified 07/16/24 20:58 latex AdvReac Intermediate trouble Verified 07/16/24 20:58 breathing/moving General Stated Complaint: SOB SHAILESH: 3 Exam Narrative Exam Narrative: 1.Const: Well-nourished, Well-developed, appearing stated age 2.Eyes: PERRL, no conjunctival injection, and symmetrical lids. 3.ENT: Atraumatic external nose and ears. Moist MM. Neck: Symmetric, trachea midline, No thyromegaly. 4.CVS: +S1/S2, Peripheral pulses 2+ and equal in all extremities. Brisk capillary refill in all extremities. 5.RESP: Unlabored respiratory effort. Clear to auscultation bilaterally. No wheezes rales or rhonchi 6.GI: Soft, Nontender/Nondistended, No hepatosplenomegaly. No guarding or rebound. 7.MSK: Normocephalic/Atraumatic, Extremities w/o deformity or ttp No cyanosis or clubbing, Normal movement of all extremities 8.Skin: Warm, Dry. No rashes or lesions. 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 Sensation grossly intact, no focal neurologic deficits. All 6 cardinal planes of vision are fully intact. No evidence of rotatory or vertical nystagmus. The patient demonstrated a normal elpovj-rsah-sabann, good dexterity. There was no evidence of dysdiadochokinesia. Patient was able to ambulate without difficulty. There was no wide-based gait. Romberg testing was normal. Lgxe-wx-[id number] testing was normal. Sensation was intact bilaterally as well as muscle strength bilaterally for all extremities. Patient was able to verbalize butter cup with no slurring, or miss pronunciation. 10.Psych: (AAO) x3. Appropriate mood and affect Course Vital Signs Vital signs: Vital Signs Temperature 36.3 C L 12/01/24 19:33 Pulse 60 12/01/24 19:33 Respiratory Rate 20 12/01/24 19:33 Blood Pressure 157/62 H 12/01/24 19:33 Pulse Oximetry 96 12/01/24 19:33 Temperature 36.3 C L 12/01/24 19:37 Temperature Source Oral 12/01/24 19:37 Pulse 60 12/01/24 19:37 Respiratory Rate 20 12/01/24 19:37 Blood Pressure 157/62 H 12/01/24 19:37 Blood Pressure Position Sitting 12/01/24 19:37 Pulse Oximetry 96 12/01/24 19:37 Oxygen Delivery Method Room Air 12/01/24 19:37 Oxygen Flow Rate 0 12/01/24 19:37 Lab/Test Results Lab/Test Results: Laboratory Tests Range/Units 12/01/24 20:06 WBC (4.4-10.8) 10^3/uL 6.36 RBC (4.36-5.78) 10^6/uL 4.98 Hgb (13.5-17.5) g/dL 13.1 L Hct (40.0-50.0) % 41.8 MCV (80-95) fL 84 MCH (27.0-33.0) pg 26.3 L MCHC (32.0-36.0) % 31.3 L RDW (11.8-14.1) % 15.6 H Plt Count (130-400) 10^3/uL 234 MPV (8.0-11.0) fL 9.2 Immature Gran % % 0.5 Neutrophils % % 52.8 Lymphocytes % % 26.1 Monocytes % % 7.5 Eosinophils % % 12.3 Basophils % % 0.8 Nucleated RBC % (0.0-0.3) % 0.0 Absolute Neutrophils (1.2-6.7) 10^3/uL 3.36 Absolute Lymphocytes (1.2-3.4) 10^3/uL 1.66 Absolute Monocytes (0.1-0.8) 10^3/uL 0.48 Absolute Eosinophils (0.0-0.7) 10^3/uL 0.78 H Absolute Basophils (0.0-0.2) 10^3/uL 0.05 PT (9.1-11.1) sec 14.7 H INR (0.9-1.1) 1.5 H APTT (20.6-30.2) sec 30.9 H Sodium (136-145) mmol/L 142 Potassium (3.5-5.1) mmol/L 4.6 Chloride (98-107) mmol/L 104 Carbon Dioxide (21.0-32.0) mmol/L 27.5 Anion Gap (3-11) mmol/L 10.5 BUN (7-18) mg/dL 17 Creatinine (0.70-1.30) mg/dL 1.1 Est GFR (CKD-EPI 2020) (mL/min/1.73m2) 70.01 Glucose (74-106) mg/dL 136 H Calcium (8.5-10.1) mg/dL 9.6 Total Bilirubin (0.2-1.0) mg/dL 0.4 AST (15-37) U/L 145 H ALT (16-63) U/L 184 H Alkaline Phosphatase (46-116) U/L 74 Troponin I (<or=76) ng/L 8 NT-Pro-B Natriuret Pep (<300) pg/mL 356 H Total Protein (6.4-8.2) g/dL 7.5 Albumin (3.4-5.0) g/dL 3.8 TSH (0.36-3.74) uIU/mL 1.81 Medical Decision Making This is a very pleasant 74-year-old male with a past medical history of a pacemaker defibrillator, coronary artery disease, diabetes mellitus, GERD, hypertension, high cholesterol, previous A-fib now currently on amiodarone and Eliquis, who presents today for 3 days of increasing weakness, mild shakiness, mild dysuria. Patient denies any chest pain. He denies any fever or chills. He does admit to mild shortness of breath when doing activities but no associated chest arm neck or shoulder pain. He denies any blood in his urine, or funny odor. He denies any change in his medications. No cough, leg swelling, or other complaints. Exam demonstrates a well-appearing male, no acute distress vital signs stable no hypoxemia. Differential as to the cause of his symptoms is broad, but mild dehydration, electrolyte disturbance, infection, UTI, and less likely stroke are all in the differential. Will evaluate for these etiologies, monitor closely and reassess. 10:03 PM Laboratory workup has returned, CT scan of the head demonstrates no acute process, workup shows no white count or bandemia. Hemoglobin is stable at 13, platelets normal. Electrolytes normal. Renal function stable. Transaminases show a gradual increase over the last year. Concerned that there may be a component secondary to the amiodarone. Patient denies excessive acetaminophen use, or alcohol use. Serial troponins are all normal, thyroid function normal, proBNP stable at 356. Chest x-ray negative for acute process. After mild gentle fluid bolus on reassessment patient feels stable. I do not see an indication for admission or other significant abnormality. He is on anticoagulation, symptoms are not consistent with PE. Pacemaker defibrillator shows no evidence of significant abnormality or recent shock. 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 With cardiology, I do feel it be beneficial to further discuss potential for the amiodarone being a potential causative agent for the transaminitis, also for discussion of the amiodarone in conjunction with the patient's shortness of breath and potential pulmonary impact of the amnio. Patient would likely benefit from nonemergent outpatient pulmonary function testing for further assessment. Additionally, I do recommend to the patient that he follow-up closely with his primary care provider for further discussion of nonemergent outpatient stress testing. Patient otherwise stable for discharge. Discussed red flags for which to return. I have extensively reviewed the treatment plan and discharge instructions with the patient and their family. I have addressed all patient concerns at this time. The patient and family was made aware of what symptoms to monitor for that would warrant a return to the emergency department. Discussed the plan with the patient and family, they demonstrate verbal understanding and agreement with our assessment and plan at this time. The documentation in this chart was dictated using [employer] dictation software. Please excuse any dictation errors. FINDINGS: Brain: Normal. No hemorrhage. Unremarkable white matter. No mass effect. Cerebral ventricles: No ventriculomegaly. Paranasal sinuses: Visualized sinuses are unremarkable. No fluid levels. Mastoid air cells: Visualized mastoid air cells are well aerated. Bones: Unremarkable. No acute fracture. Soft tissues: Unremarkable. IMPRESSION: No acute intracranial abnormality. Changes of an acute infarct may not be visible on CT for up to 24 to 48 hours. Thank you for allowing us to participate in the care of your patient. Dictated and Authenticated by: Bony Herrera MD 12/01/2024 9:03 PM Eastern Time ([place] & [place]) FINDINGS: Tubes, catheters and devices: Left ICD device noted. Lungs: Unremarkable. No consolidation. Pleural spaces: Unremarkable. No pleural effusion. No pneumothorax. Heart/Mediastinum: Unremarkable. No cardiomegaly. Bones/joints: Old bilateral rib fractures. Previous repair left hip fractures. IMPRESSION: No acute findings. Thank you for allowing us to participate in the care of your patient. Dictated and Authenticated by: Bony Herrera MD 12/01/2024 9:04 PM Eastern Time ([place] & [place]) [facility] All Active Problems (Updated 12/01/24 @ 21:54 by Stef Harper DO) Transaminitis (Acute) Weakness (Acute) Bilateral cataracts (Acute) Fracture of distal end of right fibula (Acute ~03/10/23) Bilateral sensorineural hearing loss (Acute) Change in voice (Acute) Vertigo (Acute) Essential tremor (Acute) Paroxysmal atrial fibrillation (Acute) ICD (implantable cardioverter-defibrillator), dual, in situ (Acute) Left shoulder pain (Acute) Left sided sciatica (Acute) Hypokinesia of left ventricle (Acute) EF 48% Multiple fractures of ribs of left side (Acute) Medication management (Acute) 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 (Acute) Imbalance (Acute) Discharge planning issues (Acute) Hammer toe (Acute) Peripheral neuropathy (Chronic) Ventricular tachyarrhythmia (Chronic) s/p ICD 2013 Clinical depression (Chronic) Obstructive sleep apnea (Chronic) Diverticulosis (Acute) Gastritis (Acute) Contusion of left knee, initial encounter (Acute 08/12/17) Disequilibrium (Chronic 11/10/16) Dysphagia (Acute) Contact dermatitis (Acute) Magnesium deficiency (Acute) Hypertension (Chronic) Diabetes (Chronic) Chronic pain (Chronic) Medical History Degenerative tear of triangular fibrocartilage complex (TFCC) of wrist History of nephrolithiasis Tremor Foot drop, right COVID-19 Constipation Conjunctivitis Pressure sore History of paresthesia Leg edema Hoarseness H/O ventricular tachycardia Contusion of left chest wall Abrasion hip/leg Contusion of left elbow and forearm Hemothorax on left minimal Pleural effusion Pneumothorax on left Contusion of left lung Kidney stones Diabetic peripheral neuropathy Degenerative disc disease Depression determined by examination Type 2 diabetes mellitus Dermatitis Steatohepatitis Medication monitoring encounter Frequent falls Family history of nephrolithiasis Hard stool Hallucinations Hematuria Hypomagnesemia DVT prophylaxis Lumbar degenerative disc disease Iron deficiency anemia Ischemic cardiomyopathy Hiatal hernia GERD (gastroesophageal reflux disease) Hyperlipidemia pt. states its a fissure near his coccyx Atrial fibrillation CAD (coronary artery disease) Anal fissure Rib pain on right side Pressure ulcer, buttock Esophageal ring Unspecified fracture of the lower end of right radius, subsequent encounter for closed fracture with routine healing (08/12/17) Surgical History History of cholecystectomy History of coronary artery stent placement History of permanent cardiac pacemaker placement with defib History of esophagogastroduodenoscopy (EGD) 12/17/18 History of colonoscopy 12/17/18 Family History Father Heart disease Mother Heart disease Brother Alcoholism Social History Smoking/Tobacco Use Status: Current, status unknown Tobacco Type: e-cigarettes and smokeless tobacco Counseling given: patient declined Smoking risk assessment performed?: Yes Alcohol Intake: former Drug use: Rarely Substance use type: marijuana Details: Pt states he vapes daily Housing: house current occupation: Retired What type of physical activity do you participate in: bicycling Frequency: 3-4 times per week Do you feel safe at home: Yes Do you feel safe in your relationship?: Yes PAWSS Have you Been Recently Intoxicated or Drunk Within the Last 30 days?: No Have you Ever Experienced Previous Episodes of Alcohol Withdrawal?: No Have you ever Experienced Withdrawal Seizures?: No Have you ever Experienced Delirium Tremens(DT)s?: No Have you ever undergone Alcohol Rehabilitation Treatment (i.e, inpt ot outpatient treatment programs)?: No Have you ever Experienced Blackouts?: No Have you ever Combined Alcohol with other Downers within the last 90 days?: No Have you ever Combined Alcohol with any other Substance of Abuse during the last 90 days?: No Positive Blood Alcohol level on Presentation? [PCS.BAL]: No Evidence of Increased Autonomic Activity (i.e. HR>120, tremor, sweating, agitation, nausea)?: No Result: 0
[2024-12-01 21:11] VITALS: RESP 16
[2024-12-01 21:32] LABS: Troponin I 8 ng/L (<or=76)
[2024-12-01 22:10] VITALS: BP 127/69; PULSE 64; RESP 15; O2SAT 100
[2024-12-01 22:13] LABS: Glucose Negative (Negative)
[2024-12-02 19:07] LABS: Hepatitis A Antibody IgM Negative (Negative); Hepatitis C Ab w Rflx HCV PCR Negative (Negative)
== END 2024-12-01 22:10 | disposition home or self-care (01) ==
PROVIDERS: Emergency Provider Student in an Organized Health Care Education/Training Program; PCP Student in an Organized Health Care Education/Training Program
DX: R53.1 Weakness (principal); R42 Dizziness and giddiness; R30.0 Dysuria; I10 Essential (primary) hypertension; R06.02 Shortness of breath; R74.01 Elevation of levels of liver transaminase levels; Z95.0 Presence of cardiac pacemaker; Z79.01 Long term (current) use of anticoagulants
CPT/HCPCS: 99284 ×2; 36415; 80053; 86704; 86709; 86803; 87340; 93005; 70450; 71045; 81003; 83880; 84443; 84484; 85025; 85610; 85730; 93010

== ENCOUNTER 2024-12-08 19:18 | Emergency (ER) | payer MEDICARE, SELFPAY ==
[2024-12-08] VITALS (20 sets, daily range): BP systolic 128–187; BP diastolic 61–106; PULSE 57–64; RESP 18; TEMP 37.1; O2SAT 92–97
[2024-12-08 20:23] LABS: Abs Immature Grans 0.05 10^3/uL (0.0-0.06); HCT 40.9 % (40.0-50.0); HGB 13.3 g/dL (13.5-17.5); Immature Grans % 0.3 %; MCH 26.4 pg (27.0-33.0); MCHC 32.5 % (32.0-36.0); MCV 81 fL (80-95); MPV 9.1 fL (8.0-11.0); Platelet Count 226 10^3/uL (130-400); RBC 5.03 10^6/uL (4.36-5.78); RDW 15.6 % (11.8-14.1); RDW-SD 45.7 fL; WBC 15.85 10^3/uL (4.4-10.8)
--- NOTE | 2024-12-08 20:31 | DI.CT_ITS ---
Exam(s) CT THORAX ABD/PEL CTA EXAM: CT THORAX ABD/PEL CTA CLINICAL HISTORY: hx of HTN and left flank pain x 2 days. TECHNIQUE: Imaging Protocol: Axial computed tomography images with coronal and sagittal reformatted images were created and reviewed CONTRAST MATERIAL: Intravenous: Omnipaque 350 Contrast volume:100 ml Oral: None COMPARISON: CT CT THORAX ABD/PEL CTA from 02/18/2023 FINDINGS: CHEST: AORTA: The diameter of the ascending thoracic aorta is within normal limits, as is the diameter of the aortic arch and descending thoracic aorta and there is also no evidence of abdominal aortic aneurysm nor aneurysmal dilatation of the iliac arteries. Common femoral arteries also appear unremarkable.. There is no evidence of aortic dissection There is some calcified mural plaque in the inferior abdominal aorta aortic bifurcation but without significant stenosis at these levels nor within the iliac arteries nor within the common femoral arteries. The celiac and SMA and VAISHALI arteries are patent. There is no significant stenosis at the origin of the renal arteries. CARDIAC: Heart size upper normal. Pacemaker wires noted. No pericardial effusion. LUNGS: There are no confluent lung infiltrates nor pleural effusions nor ominous pulmonary nodules. There are mildly increased subpleural markings in both lower lobes, more so on the left side. These are subjacent to multiple healed rib fractures, 3 of which are healed with metallic fixation plates (8th, 9th, and 10th left ribs) and the left 7th rib is healed without presence of hardware. There also healed fractures of the right 6 and 8th ribs. There are no ominous pulmonary nodules.. No significant focal findings in the trachea and mainstem bronchi. There is no bronchiectasis. PULMONARY ARTERIES: These are adequately opacified to rule out pulmonary emboli. There are no intraluminal filling defects to suggest acute pulmonary emboli. MEDIASTINUM: There is no hilar nor mediastinal adenopathy. Visualized thyroid unremarkable. ABDOMEN: There is no evidence of abdominal aortic aneurysm nor dissection.There is no aneurysmal dilatation of the common iliac arteries.The celiac and superior mesenteric arteries are patent. There is no ascites. LIVER: There are no focal hepatic lesions nor dilatation of intrahepatic ducts. GALLBLADDER/BILIARY: The gallbladder surgically absent. CBD diameter is slightly prominent most probably related to post cholecystectomy status. There are no dilated intrahepatic ducts. PANCREAS: No evidence of pancreatic mass nor dilatation of the pancreatic duct. SPLEEN: Spleen is not enlarged. There are no intrasplenic lesions. Splenic and portal veins are patent. ADRENALS: There are no significant adrenal masses. KIDNEYS: Right kidney unremarkable. There are cysts in left kidney, the largest of these benign cysts measuring 4.4 cm. These do not require further workup. However, there is also ipsilateral left-sided hydronephrosis and hydroureter with an obstructing calculus within the intrapelvic left ureter which measures 6 x 3 mm. There are no remaining calculi in the left kidney. The left ureter below the level calculus is not dilated and there are no radiopaque calculi within the urinary bladder lumen. ABDOMINAL AORTA: Calcified but not enlarged. LYMPH NODES: There is no retroperitoneal nor para-aortic adenopathy. No obvious mesenteric masses. ABDOMINAL WALL: No evidence of significant anterior abdominal wall hernia. GI: There are multiple undigested pills in the distal stomach and duodenum.Proximal small bowel loops appear unremarkable. However, there are some dilated and fluid-filled mid small bowel loops which are dilated up to 3 cm.. It is difficult to determine a transition point. The distal small bowel loops are not completely collapse and the colon is not collapsed; indeed, the colon is significantly filled with fecal material throughout its length. There is sigmoid diverticuli without evidence of diverticulitis. There is some dense material in the pending but no evidence of acute appendicitis. PELVIS: LYMPH NODES: There is no intrapelvic nor inguinal adenopathy. GI: No evidence of appendicitis.No evidence of sigmoid diverticulitis. URINARY BLADDER: No calculi nor masses evident REPRODUCTIVE: Prostate size upper normal. Seminal vesicles unremarkable. OSSEOUS: No fractures. Chronic disc space narrowing L4-5 and L5-S1. Very mild degenerative anterolisthesis L4 upon L5 related to facet arthropathy. IMPRESSION: 1. The main acute finding is an obstructing 6 x 3 mm calculus within the intrapelvic left ureter with dilatation of the ipsilateral ureter to 8 mm above this level and hydronephrosis of the ipsilateral left kidney. There are no remaining calculi in the left kidney and there are no calculi in the right kidney. Incidentally noted are 3 benign cysts in the left kidney measuring up to 4.4 cm which do not require further workup. There are no solid lesions seen in either kidney. 2. There are no significant findings in the urinary bladder. No calculi nor clots nor obvious masses in the urinary bladder. 3. There are some dilated and fluid-filled mid level small-bowel loops which measure up to 3 cm. More proximal and more distal small bowel loops exhibit normal diameters and the colon is not collapsed. Possible I ileus pattern related to the left renal calculus versus is incidental developing small-bowel obstruction. Clinical correlation and appropriate follow-up is recommended for this finding. 4. No evidence of aneurysms nor aortic dissection, as per request. 5. Mild bibasilar subpleural markings in both lower lobes. These are in the region of bilateral healed rib fractures and possibly related. Three of the left rib fractures are healed with of fixation plates. Other findings as above Preliminary virtual Radiology report was reviewed RADIATION DOSE DELIVERED: 783.48mGy.cm Total DLP DATA REPOSITORY: All CT scans at this facility are submitted to the National Radiology Data Registry (NRDR) Dose Index Registry (DIR) with the [employer] ([employer]). RADIATION OPTIMIZATION: All CT scans at this facility use at least one of these dose optimization techniques: automated exposure control; mA and/or kV adjustment per patient size (includes targeted exams where dose is matched to clinical indication); or iterative reconstruction.
[2024-12-08 20:39] LABS: ALT 131 U/L (16-63); AST 79 U/L (15-37); Albumin 4.0 g/dL (3.4-5.0); Alkaline Phosphatase 71 U/L (46-116); Anion Gap 14.9 mmol/L (3-11); BUN 20 mg/dL (7-18); Bilirubin, Total 0.9 mg/dL (0.2-1.0); CO2 23.1 mmol/L (21.0-32.0); Calcium 9.8 mg/dL (8.5-10.1); Chloride 94 mmol/L (98-107); Estimated GFR 48.25 (mL/min/1.73m2); Glucose 212 mg/dL (74-106); Potassium 5.2 mmol/L (3.5-5.1); Sodium 132 mmol/L (136-145); Total Protein 7.8 g/dL (6.4-8.2)
[2024-12-08] MEDS: Omnipaque 350 MG/ML 100 ML BTL IJ (20:57)
[2024-12-08] MEDS: Normal Saline - Diluent 50 ML VIAL IJ (20:57)
[2024-12-08] MEDS: Normal Saline Flush 10 ML SYR IVP (20:58)
--- NOTE | 2024-12-08 21:39 | DI.VRAD_ITS ---
PROCEDURE INFORMATION: Exam: CTA Chest With Contrast CTA Abdomen and Pelvis With Contrast Exam date and time: 12/08/2024 20:52 Age: 74 years old Clinical indication: Other: HX of HTN and left flank pain x 2 days; Prior surgery; Surgery date: 6+ months; Surgery type: Pacer, cholecysectomy TECHNIQUE: Imaging protocol: Computed tomographic angiography of the chest with contrast. Exam focused on the arteries. Computed tomographic angiography of the abdomen and pelvis with contrast. Exam focused on the arteries. 3D rendering (Not supervised by radiologist): MIP and/or 3D reconstructed images were created by the technologist. Contrast material: OMNIPAQUE 350; Contrast volume: 100 ml; Contrast route: INTRAVENOUS (IV); COMPARISON: CT THORAX ABD/PEL CTA 02/18/2023 18:41 FINDINGS: Tubes, catheters and devices: Left chest wall cardiac device, satisfactory position. VASCULATURE: Pulmonary arteries: No central pulmonary artery emboli, study not timed to fully assess the pulmonary arterial tree. Aorta: Mild aortic atherosclerosis without aneurysm or dissection. Celiac trunk and mesenteric arteries: No occlusion or significant stenosis. Renal arteries: No occlusion or significant stenosis. Right iliac arteries: No occlusion or significant stenosis. Left iliac arteries: No occlusion or significant stenosis. CHEST: Lungs: Minimal bibasilar peripheral reticulations are new, pattern favors a new mild fibrosis over pneumonitis or atypical infection. No airspace consolidation. Pleural spaces: No pneumothorax. No pleural effusion. Heart: Moderate cardiomegaly, stable. ABDOMEN AND PELVIS: Liver: No mass. Gallbladder and biliary ducts: Cholecystectomy. Typical caliber of the CBD for a post cholecystectomy patient. Pancreas: No mass. No ductal dilation. Spleen: No splenomegaly. Adrenal glands: No mass. Kidneys and ureters: 5 mm calculus in the distal left ureter causing new moderate left hydronephrosis. Benign-appearing renal cyst(s) and/or probable cyst(s). Delayed left nephrogram consistent with obstruction. No right hydronephrosis. Stomach and bowel: A few mid small bowel loops are upper limits of normal and fluid-filled. No wall thickening or transition point. No significant enteritis or obstruction. Appendix: No evidence of appendicitis. Intraperitoneal space: No free air. No significant fluid collection. Urinary bladder: No urinary bladder wall thickening. Reproductive: Mild prostatic enlargement. Lymph nodes: No enlarged lymph nodes. Bones/joints: Internal fixation of left-sided ribs again seen. Multiple chronic healed rib deformities again seen. Degenerative changes in the spine. Minor degenerative listhesis in the distal lumbar spine. Soft tissues: Chronic benign left gluteal muscular calcifications, similar to prior. IMPRESSION: 1. 5 mm calculus in the distal left ureter causing new moderate left hydronephrosis. 2. Moderate cardiomegaly, stable. 3. Minimal bibasilar peripheral reticulations are new, pattern favors a new mild fibrosis over pneumonitis or atypical infection. 4. Additional findings as described. Dictated and Authenticated by: Karly Zamorano MD. Orderin Nohemi London MD
[2024-12-08] MEDS: MORPHine 10 MG/ML VIAL 6 MG IVP (21:40)
[2024-12-08] MEDS: ACETAMINOPHEN 1,000 MG/100 ML BAG 400 MG IVPB (21:51)
--- NOTE | 2024-12-08 22:11 | W.ED.GENAD ---
Discharge Plan Disposition Patient Disposition: Home Discharge Details Clinical Impression: Kidney stone on left side, Hydronephrosis, Hematuria Primary Care Provider: Ralph Bright ED Provider: Surya Song Home Meds and New Rx's Prescriptions: New ondansetron 4 mg tablet,disintegrating 4 mg PO Q6H PRNQty: 20 0RF oxycodone 5 mg capsule 5 mg PO Q6H PRNQty: 14 0RF acetaminophen [Tylenol] 325 mg tablet 975 mg PO ONCE PRNQty: 60 0RF tamsulosin [Flomax] 0.4 mg capsule 0.4 mg PO QHS Qty: 14 0RF Continued nitroglycerin [Nitrostat] 0.4 mg tablet, sublingual 0.4 mg sublingual Q5M PRN (Reason: chest pain) Qty: 30 3RF Rx Instructions: do not exceed 3 doses per episode metoprolol succinate 100 mg tablet extended release 24 hr 100 mg PO DAILY magnesium chloride [Mag 64] 64 mg tablet,delayed release (DR/EC) 128 mg PO TID cholecalciferol (vitamin D3) 50 mcg (2,000 unit) capsule 50 mcg PO DAILY zolpidem 5 mg tablet 10 mg PO QHS PRN lamotrigine 200 mg tablet 200 mg PO DAILY Xarelto 20 mg tablet 20 mg PO DAILY Qty: 90 3RF polyethylene glycol 3350 [Miralax] 17 gram powder in packet 17 g PO DAILY gabapentin 300 mg capsule 300 mg PO TID pantoprazole [Protonix] 20 MG tablet,delayed release (DR/EC) 40 mg PO HS Patient Comments: 4/5/18-40mg PO daily per pt atorvastatin [Lipitor] 80 mg tablet 20 mg PO HS Patient Comments: TAKE 1 TABLET BY MOUTH DAILY AT BEDTIME lisinopril [Zestril] 2.5 mg tablet 2.5 mg PO QAM Patient Comments: TAKE 1 TABLET BY MOUTH EVERY DAY multivitamin Tablet 1 tab PO DAILY metformin 1,000 mg tablet 1,000 mg PO TID amiodarone 100 mg tablet 400 mg PO DAILY insulin glargine [Lantus Solostar U-100 Insulin] 100 unit/mL (3 mL) insulin pen 10 unit subcut DAILY furosemide 20 mg tablet 20 mg PO DAILY Qty: 14 0RF Discharge Instructions Additional Instructions: Please follow-up with your primary care provider regarding your visit to the emergency department today. Be sure to discuss results of all test performed here today to include radiology, and laboratory testing as well as results for any pending cultures. Please also follow-up your referral to our urology clinic. Should your symptoms worsen, or if you develop new concerning symptoms, please return immediately emergency department for further evaluation. Specifically, return if you develop fever, uncontrollable pain, or inability to eat or drink due to vomiting. HPI General Date/Time Provider Initiated Documentation: 12/08/24 19:34. HPI Narrative: MDM/Narrative: 74-year-old male with past medical history of hypertension, heart failure, status post IVC, on apixaban, presents for evaluation of left flank pain rating into her left groin x 2 days of associated hematuria for the past 2 weeks. Given comorbidities and presentation concern for possible vascular injury such as AAA, aortic vesicular fistula. As such we will obtain screening imaging including CT of the abdomen pelvis to assess for both kidney stone, vascular catastrophe, or other possible acute intra-abdominal etiology results reviewed, there is a left ureteral calculus with moderate left hydronephrosis. Without evidence of infection or any urinalysis. As such we will have patient discharged to follow-up with urology. Disposition: Discharge HPI: The patient is a 74-year-old male with a medical history significant for nephrolithiasis, pacemaker implantation, and hypertension, presenting with acute flank pain. The patient reports severe flank pain that commenced two days ago, which has been severe enough to disrupt sleep. The pain is localized to the flank with radiation to the testicle, is intermittent in nature, and has not been completely relieved by any measures. He also reports hematuria. Initial evaluation at an urgent care facility suggested the presence of a renal calculus. The patient denies any associated fever or chills. The patient experienced a fall two days prior but did not sustain any significant injuries. He has a history of rib fractures. He has noted intermittent hematuria over the past two weeks, without dysuria, although he reports a slight burning sensation today and difficulty initiating micturition. The patient also reports bowel irregularities, with bowel movements occurring every four to five days, although he notes recent improvement in this regard. PAST SURGICAL HISTORY: Cholecystectomy. ROS: Negative besides as mentioned above Exam: Vital signs: Reviewed. General Appearance: Alert and oriented. No acute distress. HEENT: NCAT, EOMI, not icteric. External ears normal. No rhinorrhea. Moist mucous membranes. Neck: Supple, full range of motion, no observable masses, No meningeal sign. Respiratory: No Respiratory distress. No tachypnea. Cardiovascular: RRR, no edema. Gastrointestinal: Tenderness in left lower quadrant. Back: No midline tenderness to palpation or palpable step-offs of the C/T/L spine. Skin: Warm and dry, no rash. Neurological: Normal Gait, Grossly intact. Psychiatric: Appropriate for situation. Labs: Laboratory Tests Range/Units 12/08/24 12/08/24 12/08/24 20:14 20:24 23:21 WBC (4.4-10.8) 10^3/uL 15.85 H Cancelled RBC (4.36-5.78) 10^6/uL 5.03 Cancelled Hgb (13.5-17.5) g/dL 13.3 L Cancelled Hct (40.0-50.0) % 40.9 Cancelled MCV (80-95) fL 81 Cancelled MCH (27.0-33.0) pg 26.4 L Cancelled MCHC (32.0-36.0) % 32.5 Cancelled RDW (11.8-14.1) % 15.6 H Cancelled Plt Count (130-400) 10^3/uL 226 Cancelled MPV (8.0-11.0) fL 9.1 Cancelled Immature Gran % % 0.3 Cancelled Neutrophils % % 85.5 Cancelled Band Neutrophils % Cancelled Lymphocytes % % 7.2 Cancelled Atypical Lymphs % Cancelled Monocytes % % 6.7 Cancelled Eosinophils % % 0.1 Cancelled Basophils % % 0.2 Cancelled Metamyelocytes % Cancelled Myelocytes % Cancelled Promyelocytes % Cancelled Other Cells % Cancelled Nucleated RBC % (0.0-0.3) % 0.0 Cancelled Absolute Neutrophils (1.2-6.7) 10^3/uL 13.55 H Cancelled Absolute Lymphocytes (1.2-3.4) 10^3/uL 1.14 L Cancelled Absolute Monocytes (0.1-0.8) 10^3/uL 1.06 H Cancelled Absolute Eosinophils (0.0-0.7) 10^3/uL 0.02 Cancelled Absolute Basophils (0.0-0.2) 10^3/uL 0.03 Cancelled RBC Morphology Cancelled Polychromasia Cancelled Hypochromasia Cancelled Poikilocytosis Cancelled Basophilic Stippling Cancelled Anisocytosis Cancelled Microcytosis Cancelled Macrocytosis Cancelled Spherocytes Cancelled Tear Drop Cells Cancelled Ovalocytes Cancelled Stomatocytes Cancelled [place] Bodies Cancelled [place] Cells/Echinocytes Cancelled Acanthocytes (Spur) Cancelled Schistocytes Cancelled Sodium (136-145) mmol/L 132 L Potassium (3.5-5.1) mmol/L 5.2 H Chloride (98-107) mmol/L 94 L Carbon Dioxide (21.0-32.0) mmol/L 23.1 Anion Gap (3-11) mmol/L 14.9 H BUN (7-18) mg/dL 20 H Creatinine (0.70-1.30) mg/dL 1.5 H Est GFR (CKD-EPI 2020) (mL/min/1.73m2) 48.25 Glucose (74-106) mg/dL 212 H Calcium (8.5-10.1) mg/dL 9.8 Total Bilirubin (0.2-1.0) mg/dL 0.9 AST (15-37) U/L 79 H ALT (16-63) U/L 131 H Alkaline Phosphatase (46-116) U/L 71 Total Protein (6.4-8.2) g/dL 7.8 Albumin (3.4-5.0) g/dL 4.0 Urine Color (Yellow) Yellow Urine Clarity (Clear) Sl Cloudy Urine pH (5-8) 5.5 Ur Specific [place] (1.005-1.025) <= 1.005 Urine Protein (Neg-Trace) mg/dL Trace Urine Ketones (Negative) mg/dL Trace H Urine Blood (Negative) Large H Urine Nitrite (Negative) Negative Urine Bilirubin (Negative) Negative Urine Urobilinogen (Up to 0.2) mg/dL 0.2 Ur Leukocyte Esterase (Negative) Negative Urine Glucose (Negative) mg/dL Negative Radiology: PROCEDURE INFORMATION: Exam: CTA Chest With Contrast CTA Abdomen and Pelvis With Contrast Exam date and time: 12/08/2024 20:52 Age: 74 years old Clinical indication: Other: HX of HTN and left flank pain x 2 days; Prior surgery; Surgery date: 6+ months; Surgery type: Pacer, cholecysectomy TECHNIQUE: Imaging protocol: Computed tomographic angiography of the chest with contrast. Exam focused on the arteries. Computed tomographic angiography of the abdomen and pelvis with contrast. Exam focused on the arteries. 3D rendering (Not supervised by radiologist): MIP and/or 3D reconstructed images were created by the technologist. Contrast material: OMNIPAQUE 350; Contrast volume: 100 ml; Contrast route: INTRAVENOUS (IV); COMPARISON: CT THORAX ABD/PEL CTA 02/18/2023 18:41 FINDINGS: Tubes, catheters and devices: Left chest wall cardiac device, satisfactory position. VASCULATURE: Pulmonary arteries: No central pulmonary artery emboli, study not timed to fully assess the pulmonary arterial tree. Aorta: Mild aortic atherosclerosis without aneurysm or dissection. Celiac trunk and mesenteric arteries: No occlusion or significant stenosis. Renal arteries: No occlusion or significant stenosis. Right iliac arteries: No occlusion or significant stenosis. Left iliac arteries: No occlusion or significant stenosis. SHAHNAZ SANTIAGO Preliminary Radiology Report [employer] (QA) DISCREPANCY? If there is a discrepancy between the preliminary and final interpretation, please notify [facility] via [email or web address]. If you do not have access to our QA portal, call our QA team at [phone] CONFIDENTIALITY STATEMENT This report is intended only for the use of the referring physician, and only in accordance with law, If you received this in error, call [phone] Page 2 of 2 CHEST: Lungs: Minimal bibasilar peripheral reticulations are new, pattern favors a new mild fibrosis over pneumonitis or atypical infection. No airspace consolidation. Pleural spaces: No pneumothorax. No pleural effusion. Heart: Moderate cardiomegaly, stable. ABDOMEN AND PELVIS: Liver: No mass. Gallbladder and biliary ducts: Cholecystectomy. Typical caliber of the CBD for a post cholecystectomy patient. Pancreas: No mass. No ductal dilation. Spleen: No splenomegaly. Adrenal glands: No mass. Kidneys and ureters: 5 mm calculus in the distal left ureter causing new moderate left hydronephrosis. Benign-appearing renal cyst(s) and/or probable cyst(s). Delayed left nephrogram consistent with obstruction. No right hydronephrosis. Stomach and bowel: A few mid small bowel loops are upper limits of normal and fluid-filled. No wall thickening or transition point. No significant enteritis or obstruction. Appendix: No evidence of appendicitis. Intraperitoneal space: No free air. No significant fluid collection. Urinary bladder: No urinary bladder wall thickening. Reproductive: Mild prostatic enlargement. Lymph nodes: No enlarged lymph nodes. Bones/joints: Internal fixation of left-sided ribs again seen. Multiple chronic healed rib deformities again seen. Degenerative changes in the spine. Minor degenerative listhesis in the distal lumbar spine. Soft tissues: Chronic benign left gluteal muscular calcifications, similar to prior. IMPRESSION: 1. 5 mm calculus in the distal left ureter causing new moderate left hydronephrosis. 2. Moderate cardiomegaly, stable. 3. Minimal bibasilar peripheral reticulations are new, pattern favors a new mild fibrosis over pneumonitis or atypical infection. 4. Additional findings as described. Thank you for allowing us to participate in the care of your patient. Dictated and Authenticated by: Karly Zamorano MD 12/08/2024 9:38 PM Eastern Time ([place] & [place]) Related Data Home Medications ?Medication ?Instructions ?Recorded ?Confirmed pantoprazole 20 mg tablet,delayed 40 mg PO HS 12/06/13 12/08/24 release (Protonix) rivaroxaban 20 mg tablet (Xarelto) 20 mg PO DAILY #90 tabs 09/06/19 12/08/24 atorvastatin 80 mg tablet (Lipitor) 20 mg PO HS 12/19/20 12/08/24 polyethylene glycol 3350 17 gram 17 g PO DAILY 10/03/21 12/08/24 oral powder packet (Miralax) lisinopril 2.5 mg tablet (Zestril) 2.5 mg PO QAM 11/20/21 12/08/24 multivitamin 1 tab PO DAILY 11/20/21 12/08/24 nitroglycerin 0.4 mg sublingual 0.4 mg sublingual Q5M PRN chest 04/13/23 08/21/25 tablet (Nitrostat) pain #30 tabs magnesium chloride 64 mg 128 mg PO TID 04/01/23 12/08/24 (magnesium chloride) tablet,delayed release (Mag 64) lamotrigine 200 mg tablet 200 mg PO DAILY 06/10/23 12/08/24 amiodarone 100 mg tablet 400 mg PO DAILY 06/08/24 12/08/24 cholecalciferol (vitamin D3) 50 50 mcg PO DAILY 06/08/24 12/08/24 mcg (2,000 unit) capsule gabapentin 300 mg capsule 300 mg PO TID 06/08/24 12/08/24 metformin 1,000 mg tablet 1,000 mg PO TID 06/08/24 12/08/24 metoprolol succinate 100 mg 100 mg PO DAILY 06/08/24 12/08/24 tablet,extended release 24 hr zolpidem 5 mg tablet 10 mg PO QHS PRN 06/08/24 12/08/24 furosemide 20 mg tablet 20 mg PO DAILY #14 tabs 07/16/24 12/08/24 insulin glargine 100 unit/mL (3 10 unit subcut DAILY 07/16/24 12/08/24 mL) subcutaneous pen (Lantus Solostar U-100 Insulin) acetaminophen 325 mg tablet 975 mg (3 x 325 mg) PO ONCE PRN 12/08/24 (Tylenol) #60 tabs ondansetron 4 mg disintegrating 4 mg PO Q6H PRN #20 tabs 12/08/24 tablet oxycodone 5 mg capsule 5 mg PO Q6H PRN #14 caps 12/08/24 tamsulosin 0.4 mg capsule (Flomax) 0.4 mg PO QHS #14 caps 12/08/24 Previous Rx's ?Medication ?Instructions ?Recorded rivaroxaban 20 mg tablet (Xarelto) 20 mg PO DAILY #90 tabs 09/06/19 nitroglycerin 0.4 mg sublingual 0.4 mg sublingual Q5M PRN chest 07/31/22 tablet (Nitrostat) pain #30 tabs furosemide 20 mg tablet 20 mg PO DAILY #14 tabs 07/16/24 acetaminophen 325 mg tablet 975 mg (3 x 325 mg) PO ONCE PRN 12/08/24 (Tylenol) #60 tabs ondansetron 4 mg disintegrating 4 mg PO Q6H PRN #20 tabs 12/08/24 tablet oxycodone 5 mg capsule 5 mg PO Q6H PRN #14 caps 12/08/24 tamsulosin 0.4 mg capsule (Flomax) 0.4 mg PO QHS #14 caps 12/08/24 Allergies Allergy/AdvReac Type Severity Reaction Status Date / Time adhesive tape Allergy Unknown rash Verified 12/08/24 19:33 latex AdvReac Intermediate trouble Verified 12/08/24 19:33 breathing/moving General Stated Complaint: FlankPain SHAILESH: 3 Course Vital Signs Vital signs: Vital Signs Temperature 37.1 C 12/08/24 19:29 Pulse 61 12/08/24 19:29 Respiratory Rate 18 12/08/24 19:29 Blood Pressure 176/75 H 12/08/24 19:29 Pulse Oximetry 96 12/08/24 19:29 Temperature 37.1 C 12/08/24 19:29 Temperature Source Oral 12/08/24 19:29 Pulse 60 12/08/24 19:31 Respiratory Rate 18 12/08/24 19:31 Blood Pressure 176/75 H 12/08/24 19:31 Pulse Oximetry 96 12/08/24 19:31 Oxygen Delivery Method Room Air 12/08/24 19:31 Oxygen Flow Rate 0 12/08/24 19:29 Pain Level 8 12/08/24 19:31 Lab/Test Results Lab/Test Results: Laboratory Tests Range/Units 12/08/24 12/08/24 20:14 20:24 WBC (4.4-10.8) 10^3/uL 15.85 H Cancelled RBC (4.36-5.78) 10^6/uL 5.03 Cancelled Hgb (13.5-17.5) g/dL 13.3 L Cancelled Hct (40.0-50.0) % 40.9 Cancelled MCV (80-95) fL 81 Cancelled MCH (27.0-33.0) pg 26.4 L Cancelled MCHC (32.0-36.0) % 32.5 Cancelled RDW (11.8-14.1) % 15.6 H Cancelled Plt Count (130-400) 10^3/uL 226 Cancelled MPV (8.0-11.0) fL 9.1 Cancelled Immature Gran % % 0.3 Cancelled Neutrophils % % 85.5 Cancelled Band Neutrophils % Cancelled Lymphocytes % % 7.2 Cancelled Atypical Lymphs % Cancelled Monocytes % % 6.7 Cancelled Eosinophils % % 0.1 Cancelled Basophils % % 0.2 Cancelled Metamyelocytes % Cancelled Myelocytes % Cancelled Promyelocytes % Cancelled Other Cells % Cancelled Nucleated RBC % (0.0-0.3) % 0.0 Cancelled Absolute Neutrophils (1.2-6.7) 10^3/uL 13.55 H Cancelled Absolute Lymphocytes (1.2-3.4) 10^3/uL 1.14 L Cancelled Absolute Monocytes (0.1-0.8) 10^3/uL 1.06 H Cancelled Absolute Eosinophils (0.0-0.7) 10^3/uL 0.02 Cancelled Absolute Basophils (0.0-0.2) 10^3/uL 0.03 Cancelled RBC Morphology Cancelled Polychromasia Cancelled Hypochromasia Cancelled Poikilocytosis Cancelled Basophilic Stippling Cancelled Anisocytosis Cancelled Microcytosis Cancelled Macrocytosis Cancelled Spherocytes Cancelled Tear Drop Cells Cancelled Ovalocytes Cancelled Stomatocytes Cancelled [place] Bodies Cancelled [place] Cells/Echinocytes Cancelled Acanthocytes (Spur) Cancelled Schistocytes Cancelled Sodium (136-145) mmol/L 132 L Potassium (3.5-5.1) mmol/L 5.2 H Chloride (98-107) mmol/L 94 L Carbon Dioxide (21.0-32.0) mmol/L 23.1 Anion Gap (3-11) mmol/L 14.9 H BUN (7-18) mg/dL 20 H Creatinine (0.70-1.30) mg/dL 1.5 H Est GFR (CKD-EPI 2020) (mL/min/1.73m2) 48.25 Glucose (74-106) mg/dL 212 H Calcium (8.5-10.1) mg/dL 9.8 Total Bilirubin (0.2-1.0) mg/dL 0.9 AST (15-37) U/L 79 H ALT (16-63) U/L 131 H Alkaline Phosphatase (46-116) U/L 71 Total Protein (6.4-8.2) g/dL 7.8 Albumin (3.4-5.0) g/dL 4.0 PFSH All Active Problems (Updated 12/08/24 @ 23:39 by Surya Song MD) Hematuria (Acute) Hydronephrosis (Acute) Kidney stone on left side (Acute) Transaminitis (Acute) Weakness (Acute) Bilateral cataracts (Acute) Fracture of distal end of right fibula (Acute ~03/10/23) Bilateral sensorineural hearing loss (Acute) Change in voice (Acute) Vertigo (Acute) Essential tremor (Acute) Paroxysmal atrial fibrillation (Acute) ICD (implantable cardioverter-defibrillator), dual, in situ (Acute) Left shoulder pain (Acute) Left sided sciatica (Acute) Hypokinesia of left ventricle (Acute) EF 48% Multiple fractures of ribs of left side (Acute) Medication management (Acute) correction current use of 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 medical therapy (Acute) Imbalance (Acute) Discharge planning issues (Acute) Hammer toe (Acute) Peripheral neuropathy (Chronic) Ventricular tachyarrhythmia (Chronic) s/p ICD 2013 Clinical depression (Chronic) Obstructive sleep apnea (Chronic) Diverticulosis (Acute) Gastritis (Acute) Contusion of left knee, initial encounter (Acute 08/12/17) Disequilibrium (Chronic 11/10/16) Dysphagia (Acute) Contact dermatitis (Acute) Magnesium deficiency (Acute) Hypertension (Chronic) Diabetes (Chronic) Chronic pain (Chronic) Medical History Degenerative tear of triangular fibrocartilage complex (TFCC) of wrist History of nephrolithiasis Tremor Foot drop, right COVID-19 Constipation Conjunctivitis Pressure sore History of paresthesia Leg edema Hoarseness H/O ventricular tachycardia Contusion of left chest wall Abrasion hip/leg Contusion of left elbow and forearm Hemothorax on left minimal Pleural effusion Pneumothorax on left Contusion of left lung Kidney stones Diabetic peripheral neuropathy Degenerative disc disease Depression determined by examination Type 2 diabetes mellitus Dermatitis Steatohepatitis Medication monitoring encounter Frequent falls Family history of nephrolithiasis Hard stool Hallucinations Hematuria Hypomagnesemia DVT prophylaxis Lumbar degenerative disc disease Iron deficiency anemia Ischemic cardiomyopathy Hiatal hernia GERD (gastroesophageal reflux disease) Hyperlipidemia pt. states its a fissure near his coccyx Atrial fibrillation CAD (coronary artery disease) Anal fissure Rib pain on right side Pressure ulcer, buttock Esophageal ring Unspecified fracture of the lower end of right radius, subsequent encounter for closed fracture with routine healing (08/12/17) Surgical History History of cholecystectomy History of coronary artery stent placement History of permanent cardiac pacemaker placement with defib History of esophagogastroduodenoscopy (EGD) 12/17/18 History of colonoscopy 12/17/18 Family History Father Heart disease Mother Heart disease Brother Alcoholism Social History Smoking/Tobacco Use Status: Current, status unknown Tobacco Type: e-cigarettes and smokeless tobacco Counseling given: patient declined Smoking risk assessment performed?: Yes Alcohol Intake: former Drug use: Rarely Substance use type: marijuana Details: Pt states he vapes daily Housing: house current occupation: Retired What type of physical activity do you participate in: bicycling Frequency: 3-4 times per week Do you feel safe at home: Yes Do you feel safe in your relationship?: Yes
[2024-12-08 23:31] LABS: Glucose Negative (Negative)
[2024-12-08 23:40] LABS: C & S Indicated? No; RBC >50 HPF (0-2)
[2024-12-09 00:02] VITALS: PULSE 62; O2SAT 96
[2024-12-09] MEDS: oxyCODONE 5 MG TAB PO (00:02)
[2024-12-09] MEDS: Tamsulosin 0.4 MG CAPCR PO (00:02)
== END 2024-12-09 00:02 | disposition home or self-care (01) ==
PROVIDERS: Emergency Provider General Practice; PCP Student in an Organized Health Care Education/Training Program
DX: N20.0 Calculus of kidney (principal); N13.30 Unspecified hydronephrosis; R31.9 Hematuria, unspecified; I10 Essential (primary) hypertension; Z86.79 Personal history of other diseases of the circulatory system
CPT/HCPCS: 71275; 80053; 96365; 96375; 99285; 74174; 81003; 81015; 85025; 99284; J0131; J2270; J3490

== ENCOUNTER → 2025-01-04 14:56 | Outpatient (BNVA) | payer MEDICARE, SELFPAY | PROVIDERS: PCP Student in an Organized Health Care Education/Training Program; Referring Provider Student in an Organized Health Care Education/Training Program; Visit Provider Student in an Organized Health Care Education/Training Program | DX: I47.20 Ventricular tachycardia, unspecified (principal); I48.0 Paroxysmal atrial fibrillation; Z45.02 Encounter for adjustment and management of automatic implantable cardiac defibrillator | CPT/HCPCS: 93282; 93283 ==

== ENCOUNTER → 2025-01-09 14:44 | Outpatient (BNVA) | payer MEDICARE, SELFPAY | PROVIDERS: PCP Student in an Organized Health Care Education/Training Program; Referring Provider Student in an Organized Health Care Education/Training Program; Visit Provider Registered Nurse | DX: I25.10 Atherosclerotic heart disease of native coronary artery without angina pectoris (principal); Z95.810 Presence of automatic (implantable) cardiac defibrillator; I47.29 Other ventricular tachycardia; I48.0 Paroxysmal atrial fibrillation; R06.00 Dyspnea, unspecified; R07.9 Chest pain, unspecified | CPT/HCPCS: 99215 ==

== ENCOUNTER 2025-02-09 03:45 | Outpatient (CLI) | payer MEDICARE, SELFPAY ==
--- NOTE | 2025-02-09 12:30 | DI.US_ITS ---
APPROVED REPORT EXAM: Comprehensive 2D, Doppler, and color-flow Echocardiogram Patient Location: Out-Patient Piano Stringer: Paige Bernard RDCS (AE) Indications: Dyspnea, Chest pain Other Information Study Quality: Adequate Conclusion Normal left ventricular wall thickness and chamber size. Ejection fraction is 55%. There are no segmental wall motion abnormalities Normal right ventricular size and function Moderately enlarged left atrium. Mildly enlarged right atrium Device lead noted in the right heart Aortic valve is mildly sclerotic and trileaflet with trace regurgitation Normal mitral valve with mild regurgitation Trace to mild tricuspid regurgitation. Estimated right ventricular systolic pressure is 38 mmHg Wall motion Left Ventricle The left ventricle is normal size. The left ventricular systolic function is normal. The left ventricular ejection fraction is within the normal range. There is normal left ventricular wall thickness. There is normal LV segmental wall motion. There is no ventricular septal defect visualized. LVEF is 55%. Right Ventricle The right ventricle is normal size. The right ventricular systolic function is normal. Device lead is present in the right ventricle. Atria Left atrium is moderately dilated. Right atrium is mildly dilated. The interatrial septum is intact with no evidence for an atrial septal defect. Aortic Valve The Aortic valve is mildly sclerotic. There is no aortic valvular stenosis. Trace aortic regurgitation. Mitral Valve The mitral valve is normal in structure. No evidence of mitral valve stenosis. Mild mitral regurgitation. Tricuspid Valve The tricuspid valve is normal in structure. There is no tricuspid valve stenosis. Trace to mild tricuspid regurgitation. The RVSP is 37.6_ mmHg. Pulmonic Valve The pulmonary valve is normal in structure. There is no pulmonic valvular stenosis. There is no pulmonic valvular regurgitation. Great Vessels The aortic root is normal in size. The ascending aorta is normal in size. Aortic arch is not well visualized. IVC is normal in size and collapses >50% with inspiration. Pericardium There is no pericardial effusion. 2D Dimensions IVSD d PLAX 1.00 cm M: 0.6-1.2 Ao Root d 2.96 cm M: 3.1 - 3.7 LVPW d PLAX 1.01 cm M: 0.6 - 1.2 Ao Asc Diam d 3.37 cm M: 2.6 - 3.4 LVID d PLAX 5.50 cm M: 4.2 - 5.8 LVDs 3.90 cm M: 2.5 - 4.0 LV EF Teichholz 54.8 % FS 28.76 % LV EDV (Teich) 146.2 mL LV ESV (Teich) 66.1 mL M-Mode TAPSE 1.69 cm (M/F) >1.7 Auto EF LV EDV A4C 175.5 mL LV EDV A2C 155.4 mL LV EDV BP 168.2 mL LV ESV A4C 78.6 mL LV ESV A2C 68.3 mL LV ESV BP 73.7 mL LVEF(%) A4C 55.2 % LVEF(%) A2C 56.0 % LVEF(%) BP 56.2 % LV SV A4C 96.9 ml LV SV A2C 87.1 ml LV SV BP 94.5 ml LV CO A4C 5.8 L/min LV CO A2C 5.2 L/min LV CO BP 5.5 L/min HR A4C 60.10 BPM HR A2C 60.08 BPM LV EDV Index (BP) LA Volume LA Length A4C 5.8 cm LA Length A2C 5.8 cm LA Area A4C s 25.86 cm2 LA Area A2C s 23.90 cm2 LA Vol A4C A-L 97.77 mL LA Vol A2C A-L 83.55 mL LA Vol Biplane A-L 90.4 mL LA Vol/BSA A4C A-L LA Vol/BSA A2C A-L LA Vol/BSA BP A-L 42.8 mL/m2 LA Vol A4C MOD 87.8 mL LA Vol A2C MOD 78.8 mL LA Vol BP MOD 82.9 mL RA Volume RA Area A4C 14.0 cm2 RA ESV A4C (A-L) 34.8mL RA Vol/BSA A4C A-L RA Length A4C 4.8 cm RA ESV A4C (MOD) 33.4mL LV Diastology MV E' lateral 0.098 (>0.1 m/s) MV E Vmax 0.67 (0.4-1.3 m/s) MV E/E' LAT 6.83 (<14) MV A Vmax 0.45 (0.4-1.3 m/s) E/A Ratio 1.5 Aortic Valve AoV Vmax 1.12 m/s LVOT Vmax 0.86 m/s AoV Peak Grad 32.4 mmHg LVOT Peak Grad 3.0 mmHg AoV Area (Vmax) 2.51 cm2 LVOT VTI 0.210 m AoV VTI 0.281 m LVOT Mean Grad 1.6 mmHg AoV Mean Maco. 0.78 m/s LVOT SV 68.68 mL AoV Mean Grad 2.8 mmHg LVOT Diam s 2.00 cm AoV Area (VTI) 2.44 cm2 AV Regurg Peak Gr. 5.06 mmHg Velocity Ratio 0.77 AR Decel Luce 1.5m/sec2 AR DT 2627 msec AR PHT 762 msec AR Vmax 3.86 m/s Mitral Valve MV DT 213 (160-240 msec) MV Vmax TIPS 0.66 m/s MV Mean Grad 0.9 (<2mmHg) MV VTI 0.247 m Pulmonary Valve PV Vmax 0.94 (0.5-1.5 m/s) RVOT Vmax 0.65 m/s PV Peak Grad 3.6 mmHg RVOT Peak Gr. 1.7 mmHg PV Mean Maco 0.61 m/s RVOT VTI 0.148 m PV Mean Grad 1.6 mmHg RVOT Mean Gr. 1.0 mmHg Tricuspid Valve RA Pressure 3.00 mmHg TR Vmax 2.94 m/s TV S' 0.11 m/s TR Peak Grad 34.5 mmHg RVSP (TR) 37.6 mmHg
== END 2025-02-09 04:05 ==
LOC: DI 03:46
PROVIDERS: PCP Student in an Organized Health Care Education/Training Program; Visit Provider Registered Nurse
DX: R06.00 Dyspnea, unspecified (principal); I35.0 Nonrheumatic aortic (valve) stenosis; Z95.811 Presence of heart assist device
CPT/HCPCS: 93306

== ENCOUNTER → 2025-02-16 03:53 | Outpatient (CLI) | payer MEDICARE, SELFPAY ==
--- NOTE | 2025-02-16 07:30 | DI.NM_ITS ---
APPROVED REPORT Exam: Pharmacologic Patient Location: Out-Patient Room/Bed: Stress Nurse: Nini Stone RN Ordering Provider:KAYLYN LYLE, Contact Number: BMI: 25.32 Baseline Rhythm: AV paced Indications: chest pain, dyspnea Medical History Medical History: ICD, paroxysmal afib, CAD, ventricular tachycardia, vertigo, essential tremor, hypokinesia of L ventricle, imbalance, peripheral neuropathy, TOOTIE, ischemic cardiomyopathy, afib, HLD, frequent falls Cardiac Medications: pantoprazole, xarelto, atorvastatin, lisinopril, nitroglycerin, magnesium chloride, lamotrigine, amiodarone, gabapentin, metformin, metoprolol succinate, zolpidem, furosemide, insulin glargine, zofran, flomax Allergies: latex, adhesive tape Cardiac Risk Factors: family hx, diabetes, HLD, smoker, CVD Previous Cardiac Procedures: ICD/pacemaker placement, cardiac stents (-2007) Pretest Chest Pain Characteristics: No chest pain Exercise History: Sedentary Physical Disabilities: n/a Lung Sounds: Clear to auscultation Heart Sounds: Regular Stress Test Details Test: Pharmacologic stress testing performed using 0.4 mg of regadenoson per 5 mL given IV over 10 seconds. Reason for pharmacologic stress test: pacemaker. Nuclear Acquisition: Rest Tc-99m/Stress Tc-99m 1 day Rest Isotope: Tc-99m Sestamibi. Dose: 10.0 Date: 02/16/2025 Injection Time: 1105 Stress Isotope: Tc-99m Sestamibi. Dose: 30.0 Date: 02/16/2025 Injection Time: 1352 HR Resting HR Supine: 60 bpm Max Heart Rate (APMHR): 145.464872 bpm Target HR (85% APMHR): 123.340206 bpm Max HR Achieved: 74 bpm % of APMHR: 51.03 Recovery HR: 60 bpm BP Resting BP Supine: 100/76 mmHg Max BP: 110/76 mmHg Recovery BP: 110/60 mmHg ECG Resting ECG: AV paced rhythm; diffuse T wave inversions Ectopy: n/a Stress ECG: AV paced rhythm; diffuse T wave inversions ST Change: Nondiagnostic low heart rate Arrhythmia: None Recovery ECG: AV paced rhythm; diffuse T wave inversions Recovery ST Change: Nondiagnostic low heart rate Recovery Arrhythmia: None Clinical Stress Symptoms: Dyspnea Angina Score: None Rate Pressure Product: 8140 Stress ECG Conclusion 1. Electrocardiogram showed atrial and ventricular pacing 2. Patient underwent testing using pharmacologic stress with regadenoson 3. Peak heart rate achieved was 51% of maximal predicted for age 4. Electrocardiographic portion of the test was nondiagnostic 5. See MPI report Stress Test Summary STAGE HR BP SpO2 Symptoms NOTES Supine 60 100/76 1 min post Lexiscan injection 60 110/76 97 mod. SOB 3 min post Lexiscan injection 60 100/60 98 mild SOB 6 min post Lexiscan injection 60 110/60 97 Pt presents asymptomatic with diffuse T wave inversions, changed from previous EKG done on 12/01/24. EKGs reviewed with supply chain project manager, and okayed to continue with test. Pt c/o moderate SOB during test, all symptoms resolved by end of test. Pt left ambulatory in no acute distress. MPI Conclusion Myocardial perfusion is grossly normal. There is no significant ischemia, no areas of infarction Ejection fraction is 47%, no segmental wall motion abnormalities
[2025-02-16] MEDS: Regadenoson 0.4 MG/5 ML SYR IVP (13:52)
== END ==
LOC: DI 03:56
PROVIDERS: PCP Student in an Organized Health Care Education/Training Program; Visit Provider Registered Nurse
DX: R07.9 Chest pain, unspecified (principal)
CPT/HCPCS: 78452; 93016; 93018; 93017; J2785

== ENCOUNTER → 2025-02-27 14:44 | Outpatient (BNVA) | payer MEDICARE, SELFPAY | PROVIDERS: PCP Student in an Organized Health Care Education/Training Program; Referring Provider Student in an Organized Health Care Education/Training Program; Visit Provider Registered Nurse | DX: I25.10 Atherosclerotic heart disease of native coronary artery without angina pectoris (principal); I48.0 Paroxysmal atrial fibrillation; Z95.810 Presence of automatic (implantable) cardiac defibrillator; Z79.02 Long term (current) use of antithrombotics/antiplatelets; Z79.811 Long term (current) use of aromatase inhibitors; Z79.899 Other long term (current) drug therapy | CPT/HCPCS: 99214 ==

== ENCOUNTER 2025-03-10 16:10 | Outpatient (REF) | payer MEDICARE, SELFPAY ==
[2025-03-10 22:08] LABS: ALT 140 U/L (10-49); AST 139 U/L (<34); Albumin 4.3 g/dL (3.4-5.0); Alkaline Phosphatase 74 U/L (46-116); Anion Gap 11.9 mmol/L (3-11); BUN 21 mg/dL (9-23); Bilirubin, Total 0.30 mg/dL (0.2-1.2); CO2 25.1 mmol/L (20.0-31.0); Calcium 9.3 mg/dL (8.3-10.6); Chloride 108 mmol/L (98-107); Glucose 125 mg/dL (74-106); Potassium 5.1 mmol/L (3.5-5.1); Sodium 145 mmol/L (136-145); Total Protein 6.5 g/dL (5.7-8.2)
[2025-03-10 22:11] LABS: Microalb ug/mg Crea 15.5 ug/mg Cr
== END 2025-03-10 16:11 | disposition home or self-care (01) ==
LOC: NCHCN 16:10
PROVIDERS: PCP Student in an Organized Health Care Education/Training Program; Visit Provider Student in an Organized Health Care Education/Training Program
DX: E11.9 Type 2 diabetes mellitus without complications (principal); R74.01 Elevation of levels of liver transaminase levels
CPT/HCPCS: 80053; 82043; 82570

== ENCOUNTER → 2025-03-29 00:10 | Outpatient (CLI) | payer MEDICARE, SELFPAY ==
--- NOTE | 2025-03-29 12:00 | DI.US_ITS ---
Exam(s) US ABDOMEN LIMITED EXAM: US ABDOMEN LIMITED CLINICAL HISTORY: ELEVATED LIVER TRANSAMINASE LEVEL, R74.01, ? LIVER PATHOLOGY TECHNIQUE: Ultrasound abdomen performed using standard protocol. COMPARISON: CT CT THORAX ABD/PEL CTA from 12/08/2024 FINDINGS: There is no ascites evident. LIVER: Liver is hyperechoic indicating steatosis. There are no discrete focal hepatic lesions evident. GALLBLADDER/BILIARY: The gallbladder is surgically absent. The common hepatic duct isminimally prominent, measuring 7mm at the level of lyndsey hepatis. Probably related to post cholecystectomy status. PANCREAS: Not well seen due to overlying bowel gas. RIGHT KIDNEY:No evidence of solid mass, calculus, nor hydronephrosis. No cortical cysts evident. IMPRESSION: 1. The gallbladder surgically absent. Size of the CBD is commensurate with post cholecystectomy status. 2. Hepatic steatosis noted. There are no discrete focal hepatic lesions. 3. Pancreas was not able to be seen due to overlying bowel gas. Pancreas appeared unremarkable on prior CT scan of 12/09/2024. DATA REPOSITORY:
== END ==
LOC: DI 00:11
PROVIDERS: PCP Student in an Organized Health Care Education/Training Program; Visit Provider Student in an Organized Health Care Education/Training Program
DX: K76.0 Fatty (change of) liver, not elsewhere classified (principal); Z90.5 Acquired absence of kidney; R74.01 Elevation of levels of liver transaminase levels
CPT/HCPCS: 76705